=== PATIENT | male | born 1935 | race Caucasian/White ===

== ENCOUNTER 2023-01-22 09:38 | Outpatient (OUT) | payer MEDICARE, OTHER, SELFPAY ==
[2023-01-22 10:22] LABS: Basophils Percent Auto 0.4 % (0.2-2.0); Eosinophils Absolute Auto 0.1 10^3/uL (0.0-0.7); Eosinophils Percent Auto 0.7 % (0.9-7.0); Hematocrit 34.8 % (42.0-54.0); Hemoglobin 12.1 g/dL (14.0-18.0); Immature Granulocytes Abs Auto 0.03 10^3/uL (0.00-0.03); Immature Granulocytes Pct Auto 0.4 % (0.0-0.5); Lymphocytes Absolute Auto 1.2 10^3/uL (1.2-3.8); Lymphocytes Percent Auto 14.3 % (20.5-60.0); Mean Corpuscular HGB Conc 34.8 g/dL (29.9-35.2); Mean Corpuscular Hemoglobin 26.6 pg (25.9-34.0); Mean Corpuscular Volume 76.5 fL (80.0-94.0); Mean Platelet Volume 11.4 fL (9.5-13.5); Monocytes Absolute Auto 1.4 10^3/uL (0.3-0.8); Monocytes Percent Auto 16.1 % (1.7-12.0); Neutrophils Absolute Auto 5.7 10^3/uL (1.4-6.5); Neutrophils Percent Auto 68.1 % (43.0-75.0); Platelet Count 407 10^3/uL (150-450); Red Blood Count 4.55 10^6/uL (4.70-6.10); Red Cell Distribution Width 15.8 % (11.0-15.0); White Blood Count 8.4 10^3/uL (4.0-11.0)
[2023-01-22 10:58] LABS: Estimated Average Glucose 246 mg/dL; Glycohemoglobin A1C 10.2 % (4.5-6.2)
[2023-01-22 11:27] LABS: Percent Iron Saturation 7.3 %
[2023-01-22 11:58] LABS: Alanine Aminotransferase 21 U/L (16-63); Albumin Globulin Ratio 0.7; Albumin Level 2.9 g/dL (3.4-5.0); Alkaline Phosphatase 128 U/L (46-116); Anion Gap 10.4; Aspartate Amino Transferase 20 U/L (15-37); BUN Creatinine Ratio 18.8; Bilirubin Total 0.4 mg/dL (0.2-1.0); Calcium 8.5 mg/dL (8.5-10.1); Chloride 100 mmol/L (98-107); Chol HDL Ratio 3.5; Cholesterol 120 mg/dL (<=200); Estimated GFR (African America >60 (>=60); Estimated GFR (Non-African Ame >60 (>=60); Globulin 4.2 g/dL; Glucose 343 mg/dL (74-106); HDL Cholesterol 34 mg/dL (40-60); Magnesium 1.7 mg/dL (1.8-2.4); Phosphorus 2.6 mg/dL (2.6-4.7); Potassium 4.4 mmol/L (3.5-5.1); Sodium 134 mmol/L (136-145); Thyroid Stimulating Hormone 1.277 uIU/mL (0.358-3.740); Total Protein 7.1 g/dL (6.4-8.2); Triglycerides 59 mg/dL (<=150); VLDL CHOLESTEROL 11.8 mg/dL
[2023-01-22 11:59] LABS: Creatinine Urine Random 66.56 mg/dL (20.00-300.00); Microalbum Creatinine Ratio Ur 126.2 mg/g (0.0-29.9); Microalbumin Urine Random 8.4 mg/dL (<=30.0)
[2023-01-23 05:07] LABS: Transferrin 207 mg/dL (149-313)
[2023-01-23 14:10] LABS: PTH, Intact 47 pg/mL (15-65)
== END 2023-01-22 09:39 | disposition home or self-care (01) ==
PROVIDERS: PCP Internal Medicine; Visit Provider Nurse Practitioner Adult Health
DX: E10.9 Type 1 diabetes mellitus without complications (principal); D64.9 Anemia, unspecified; E83.51 Hypocalcemia; Z51.81 Encounter for therapeutic drug level monitoring; E83.42 Hypomagnesemia; E78.2 Mixed hyperlipidemia
CPT/HCPCS: 36415; 80053; 80061; 82043; 82570; 83036; 83540; 83550; 83735; 83970; 84100; 84443; 84466; 85025

== ENCOUNTER 2023-04-12 08:56 | Outpatient (OUT) | payer MEDICARE, OTHER, SELFPAY ==
--- NOTE | 2023-04-12 09:02 | US_ITS ---
The [address] [address] Patient Name: ASHWINI VICKERS MRN: [id number] date: 1935 Sex: M Assigned Patient Location: US Current Patient Location: US Accession/Order Number: [id number] Exam Date: 04/12/2023 09:03 Report Date: 04/12/2023 10:08 At the request of: NON-STAFF PHYSICIAN Procedure: US renal bladder EXAM: US renal bladder HISTORY: Urinary Tract Infection N39.0 COMPARISON: None. TECHNIQUE: Ultrasound of the kidneys and urinary bladder FINDINGS: The right kidney measures 11.0 x 6.6 x 7.3 cm contains multiple cysts, largest measuring up to 4.3 cm. The left kidney measures 11.4 x 5.0 x 7.0 cm and contains a cyst measuring up to 2.3 cm. There is moderate hydronephrosis. No renal calculus is identified, bilaterally. Urinary bladder wall thickness taken containing multiple diverticula, largest measuring up to 1.3 cm. The prevoid volume was 469 cc. Postvoid volume was 226 cc. US/US renal bladder IMPRESSION: Moderate left hydronephrosis. Bilateral renal cysts. No nephrolithiasis, bilaterally. 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 Urinary retention. Electronically authenticated by: SERGEI VILLASENOR Date: 04/12/2023 10:08
== END 2023-04-12 08:57 | disposition home or self-care (01) ==
LOC: US 08:56
PROVIDERS: PCP Internal Medicine
DX: N39.0 Urinary tract infection, site not specified (principal); N13.30 Unspecified hydronephrosis; N28.1 Cyst of kidney, acquired; R33.9 Retention of urine, unspecified
CPT/HCPCS: 76770

== ENCOUNTER 2023-05-14 12:24 | Outpatient (RCR) | payer MEDICARE, OTHER, SELFPAY | END 2023-07-11 08:19 | disposition home or self-care (01) | LOC: PT 12:24 | PROVIDERS: PCP Internal Medicine | DX: S72.141D Displaced intertrochanteric fracture of right femur, subsequent encounter for closed fracture with routine healing (principal) | CPT/HCPCS: 97110; 97112; 97161; 97530 ==

== ENCOUNTER 2023-05-17 09:13 | Outpatient (RCR) | payer MEDICARE, OTHER, SELFPAY | END 2023-07-11 08:19 | disposition home or self-care (01) | LOC: OT 09:13 | PROVIDERS: PCP Internal Medicine | DX: S72.141D Displaced intertrochanteric fracture of right femur, subsequent encounter for closed fracture with routine healing (principal) | CPT/HCPCS: 97165 ==

== ENCOUNTER 2023-08-21 10:55 | Observation (INO) | payer MEDICARE, OTHER, SELFPAY ==
[2023-08-21] VITALS (22 sets, daily range): BP systolic 138–174; BP diastolic 70–108; PULSE 48–84; RESP 10–40; TEMP 36.4–36.8; O2SAT 83–100; BMI 15.5; BMI 19.0; BMI 19.6
--- NOTE | 2023-08-21 10:56 | ECG_ITS ---
The 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
--- NOTE | 2023-08-21 10:56 | CT_ITS ---
The [address] [address] Patient Name: ASHWINI VICKERS MRN: [id number] date: 1935 Sex: M Assigned Patient Location: ER Current Patient Location: ER Accession/Order Number: [id number] Exam Date: 08/21/2023 11:04 Report Date: 08/21/2023 11:31 At the request of: YENY VIDAL Procedure: CT stroke head/brain wo con EXAM: CT stroke head/brain wo con HISTORY: AMS. COMPARISON: None. TECHNIQUE: Unenhanced transaxial tomographic sections obtained from the vertex through the posterior fossa. Dose reduction techniques were achieved by using automated exposure control and/or adjustment of mA and/or kV according to patient size and/or use of iterative reconstruction technique. FINDINGS: Moderate bilateral chronic microvascular ischemic change. No midline shift, mass effect, or intracranial hemorrhage are identified. Mild diffuse cerebral atrophy. The mastoid air cells and the visualized paranasal sinuses are clear. CT/CT stroke head/brain wo con IMPRESSION: 1. No acute intracranial process is identified. 2. Moderate bilateral chronic microvascular ischemic change. Diffuse cerebral atrophy. Electronically authenticated by: DENIZ GARCIA Date: 08/21/2023 11:31
--- OUTSIDE RECORDS SUMMARY | 2023-08-21 11:06 | XMS_ITS | CCD ---
Author Name Unknown Address [address] [place] [address] Organization [facility] Care Team Providers Care Elevator Service Technician Name Role Phone MARINO CASTILLO Unavailable Unavailable MARIE CASTRO Unavailable Unavailab MARINO Merlos Unavailable Unavailable MARINO CASTILLO Unavailable Unavailable MARINO CASTILLO Unavailable Unavailable MARINO CASTILLO Unavailable Unavailable MARINO CASTILLO Unavailable Unavailable MARIE JULIAN (FEL) Unavailable Unavailable MARIE CASTRO Unavailable Unavailab Marie Santoyo Primary Care Provider PAUL CONN Admitting Unavailable PAUL CONN Attending Unavailable DUNCAN FRANCIS Consulting Unavailable MARIE CASTOR Primary Care Unavailable JOSE A, DR FRANCO Primary Care Unavailable KESHA DOBSON Admitting Unavailable KESHA DOBSON Attending Unavailable KESHA DOBSON Consulting Unavailable ROLA HOLCOMB Consulting Unavailable MATTHEW, DR SALAZAR Admitting Unavailable MATTHEW, DR SALAZAR Attending Unavailable [facility], DR CHANEY Primary Care Unavailable MATTHEW, DR SALAZAR Consulting Unavailable MATTHEW, DR SALAZAR Admitting Unavailable MATTHEW, DR SALAZAR Attending Unavailable DR SALVADOR NARANJO Primary Care Unavailable MATTHEW, DR SALAZAR Consulting Unavailable DO Marie Castro Primary Care Provider [phone] JO Rivas Emergency Provider DO Sushant Cordon Admit Provider DO Sushant Cordon Attending Provider [phone] MD Ashwini Conrad Other Provider [phone] MD Chuck Velasco Other Provider MD Anat Perez Other Provider MD Humberto Diaz Attending Provider MD Tru Briceno Other Provider MD Fredi Medrano Admit Provider MD Fredi Medrano Attending Provider KARIN Rios Other Provider Unavailable KARIN Velazquez Other Provider Unavailable KARIN Angulo Other Provider Unavailable KARIN Hernandez Other Provider Unavailable KARIN Bentley Other Provider Unavailable KARIN Henry Other Provider Unavailable MD Chris Holm Other Provider AMADA Zavala Other Provider DO Samantha Wilson Other Provider [phone] MD Eric Major Other Provider DO Sushant Cordon Other Provider MD Audi Gaming Other Provider [phone] MD Ceciyl Keen Other Provider AMADA Wright Other Provider MD Daniel Reyes Other Provider MD Roberto Sevilla Other Provider MD Humberto Diaz Other Provider MD Marzena Otto Other Provider DO Gray Gilliam Other Provider MD Mc Cornejo Other Provider MD Raymundo Angeles Other Provider MARYANN Mccauley Other Provider [phone] MD Indra Guillory Other Provider MD David Fonseca Other Provider MD Hai Aguilera Other Provider MD Esau Corrales Other Provider DO Leda Julian Other Provider DO Guevara Mills Other Provider DO Jose Roberto Felder Other Provider [phone] AMADA Marte Other Provider DO Warren Gross Other Provider MD Nayeli Jimenez Other Provider AMADA Wolff Other Provider AMADA Pimentel Other Provider MD Vidya Robert Other Provider MD Howard Burrell Other Provider DO Immanuel John Other Provider [phone] AMADA Murdock Other Provider [phone] DO Vidal Yadontae Other Provider KARIN Morillo Other Provider Unavailable Ashwini Conrad Unavailable Marie Castro DO Primary Care Provider MARIE CASTRO Referring Unavailable MARIE CASTRO Attending Unavailable MARIE CASTRO Referring Unavailable DO Marie Castro Primary Care Provider JO Rivas Emergency Provider DO Sushant Cordon Admit Provider [phone] MD Ashwini Conrad Other Provider MD Chuck Velasco Other Provider MD Anat Perez Other Provider MD Humberto Diaz Attending Provider MD Tru Briceno Other Provider MD Fredi Medrano Admit Provider MD Fredi Medrano Attending Provider [phone] KARIN Rios Other Provider Unavailable KARIN Velazquez Other Provider Unavailable KARIN Angulo Other Provider Unavailable KARIN Hernandez Other Provider Unavailable KARIN Bentley Other Provider Unavailable KARIN Henry Other Provider Unavailable MD Chris Holm Other Provider AMADA Zavalaa M Other Provider DO Samantha Wilson Other Provider MD Eric Major Other Provider DO Sushant Cordon Other Provider MD Audi Gaming Other Provider [phone] MD Cecily Keen Other Provider AMADA Wright Other Provider MD Daniel Reyes Other Provider MD Roberto Sevilla Other Provider MD Humberto Diaz Other Provider MD Marzena Otto Other Provider DO Gray Gilliam Other Provider [phone] MD Mc Cornejo Other Provider MD Raymundo Angeles Other Provider MARYANN Mccauley Other Provider MD Indra Guillory Other Provider MD David Fonseca Other Provider MD Hai Aguilera Other Provider MD Esau Corrales Other Provider DO Leda Julian Other Provider DO Guevara Mills Other Provider DO Jose Roberto Felder Other Provider [phone] AMADA Marte Other Provider DO Warren Gross Other Provider MD Nayeli Jimenez Other Provider [phone] AMADA Wolff Other Provider AMADA Pimentel Other Provider MD Vidya Robert Other Provider MD Howard Burrell Other Provider JohnDO Immanuel Other Provider AMADA Murdock Other Provider [phone] DO Mauricio Drake Other Provider KARIN Morillo Other Provider Unavailable MD Ashwini Conrad Attending Provider PROVIDER, UNKNOWN Attending Unavailable PROVIDER, UNKNOWN Admitting Unavailable Provider, None Primary Care Unavailable Arian Balderas Admitting Unavailable Arian Balderas Attending Unavailable Provider, None Primary Care Unavailable Arian Balderas Admitting Unavailable Arian Balderas Attending Unavailable Provider, None Primary Care Unavailable Arian Balderas Admitting Unavailable Arian Balderas Attending Unavailable MD Chuck Velasco Other Provider DO Federico Davis Attending Provider MD Herminio Lakhani Attending Provider [phone] Federico Davis Attending Unavailable Federico Davis Admitting Unavailable Xavichak, Marie Primary Care Unavailable Xavichak, Marie Primary Care Unavailable Herminio Lakhani Attending Unavailable Herminio Lakhani Admitting Unavailable Ashwini Conrad Attending Unavailable Ashwini Conrad Admitting Unavailable Vaschak, Marie Primary Care Unavailable Ashwini Conrad Attending Unavailable Ashwini Conrad Admitting Unavailable Vaschak, Marie Primary Care Unavailable Humberto Diaz Attending Unavailable Vaschak, Marie Primary Care Unavailable Sushant Cordon Admitting Unavailabl e Ashwini Conrad Consulting Unavailable Chuck Velasco Consulting Unavailable Anat Perez Consulting Unavailable Tru Briceno Consulting Unavailable Fredi Medrano Attending UnavailMarie Armando [facility] Care Unavailable Lois Rios Consulting Unavailable Fredi Medrano Admitting UnavailKavya Augustine Consulting Unavailable Gay Angulo Consulting Unavailable Buffy Hernandez Consulting Unavailable Fransisca Bentley Consulting Unavailable Diamond Henry Consulting Unavailable Chris Holm Consulting Unavailable Vivian Zavala Consulting Unavailable Samantha Wilson Consulting Unavailable Eric Major Consulting Unavailable Sushant Cordon Consulting UnavailAudi Hay Consulting Unavailable Cecily Keen Consulting Unavailable Nidia Wright Consulting UnavailDaniel Ochoa Consulting Unavailable Roberto Sevilla Consulting Unavailable Humberto Diaz Consulting Unavailable Marzena Otto Consulting Unavailable Gray Gilliam Consulting Unavailable Mc Cornejo Consulting Unavailable Raymundo Angeles Consulting Unavailable Marga Mccauley Consulting Unavailable Indra Guillory Consulting Unavailab David Wilson Consulting Unavailable Hai Aguilera Consulting Unavailable Esau Corrales Consulting Unavailable Leda Julian Unavailable Guevara Mills Consulting Unavailable Jose Roberto Felder Consulting Unavailable Anat Marte Consulting Unavailable Warren Gross Consulting Unavailable DaromaNayeli goff Consulting Unavailable Nicole Wolff Consulting Unavailable Melisa Pimentel Consulting Unavailable Alanikhil Alanaomie Consulting Unavailable Howard Burrell Consulting Unavailable Immanuel John Consulting Unavailable Rosario Murdock Consulting Unavailable Mauricio Drake Consulting Unavailable Erma Morillo Consulting Unavailable Anat Perez Unavailable ADRIÁN DAVIS Attending Unavailable MARIE CASTRO Primary Care Unavailab ADRIÁN Sarmiento Referring Unavailable SAMMY WOLFF Attending Unavailable ADRIÁN DAVIS Referring Unavailable MARIE CASTRO Primary Care Unavailab SAMMY Sosa Attending Unavailable SAMMY WOLFF Referring Unavailable MARIE CASTRO Primary Care Unavailab le Medications Current Medications Medication Drug Class(es) Dates Sig (Normalized) Sig (Original) acetaminophen 500 mg oral tablet (20 sources) Start: 05-03-2023 End: 05-07-2023 take 500 mg by mouth every six hours Acetaminophen Active 500 MG PO Every 6 hours May 06, 2023 11:00pm Start: 05-03-2023 End: 05-03-2023 take 2 tablets by mouth every four hours Acetaminophen (Tylenol) 325 mg Tablet Discontinued 650 MG PO Q4H 0 May 02, 2023 11:00pm May 03, 2023 4:10pm Start: 01-06-2022 acetaminophen (TYLENOL) tablet 1,000 mg amLODIPine 5 mg oral tablet (2 sources) Dihydropyridine Calcium Channel Sarah Start: 01-07-2022 take 1 tablet by mouth once daily amLODIPine (NORVASC) 5 MG tablet Take 1 tablet by mouth daily 30 tablet 3 01/07/2022 Active Start: 01-07-2022 take 1 tablet by sondra th once daily amLODIPine (NORVASC) 5 MG tablet Take 1 tablet by mouth daily 30 tablet 3 01/07/2022 Active Start: 01-04-2022 take 5 mg by mouth once daily 5 mg, Oral, DAILY, First dose on 01/04/22 at 1500, Until Discontinued amylase 416196 unt / lipase 41919 unt / protease 65031 unt delayed release oral capsule (14 sources) Start: 05-07-2023 take 16225-80301 capsules by mouth once Gttraq-Pqujchgm-Fnkcjeu (Creon) 24,000-76,000 -120,000 unit Capsule,Delayed Release(Dr/Ec) Active 2 CAP PO 3x/Day with meals 120 May 06, 2023 11:00pm Start: 04-28-2023 End: 05-07-2023 take 33117-21485 capsules by mouth three times daily Iczexp-Ckotvdwn-Nebjayu (Creon) 24,000-76,000 -120,000 unit capsule,delayed release(DR/EC) Discontinued 2 CAP PO Three times daily April 27, 2023 11:00pm May 07, 2023 1:27pm take 1 capsule by mo [facility] three times daily at mealtime dlyncx-kjcvvvre-dnmkcfv (CREON) 31133-02145 units delayed release capsule Take 1 capsule by mouth 3 times daily (with meals) 0 Active lipase-protease- amylase (CREON) 16475-68023 units delayed release capsule Take 12,000 Units by mouth take with snacks 0 Active aspirin 81 mg delayed release oral tablet (17 sources) Platelet Aggregation Inhibitor, Nonsteroidal Anti-inflammatory Drug Start: 05-03-2023 End: 05-07-2023 take 81 mg by mouth once daily Aspirin Active 81 MG PO Daily May 06, 2023 11:00pm atorvastatin 80 mg oral tablet (17 sources) HMG-CoA Reductase Inhibitor Start: 05-03-2023 End: 05-07-2023 take 80 mg by mouth once daily in the evening Atorvastatin Active 80 MG PO Every evening May 06, 2023 11:00pm calcium carbonate 1250 mg oral tablet (1 source) take 1 tablet by mouth three times daily at mealtime calcium carbonate (Oscal) 500 mg calcium (1,250 mg) tablet Take 1 tablet (1,250 mg) by mouth 3 times a day with meals. 0 Active Calcium Carbonate-Vitamin D3 (Oyster Shell Calcium-Vit D3) 500 mg-5 mcg (200 unit) Tablet (11 sources) Start: 05-07-2023 take 1 tablet by mouth once at mealtime Calcium Carbonate-Vitamin D3 (Oyster Shell Calcium-Vit D3) 500 mg-5 mcg (200 unit) Tablet Active 1 TAB PO 3x/Day with meals May 06, 2023 11:00pm Start: 05-07-2023 take 1 tablet by sondra th once at mealtime Calcium Carbonate-Vitamin D3 (Oyster Shell Calcium-Vit D3) 500 mg-5 mcg (200 unit) Tablet Active 1 TAB PO 3x/Day with meals May 07, 2023 12:00am Start: 05-03-2023 End: 05-07-2023 take 1 tablet by mouth once at mealtime Calcium Carbonate-Vitamin D3 (Oyster Shell Calcium-Vit D3) 500 mg-5 mcg (200 unit) Tablet Discontinued 1 TAB PO 3x/Day with meals May 02, 2023 11:00pm May 07, 2023 1:27pm Start: 05-03-2023 End: 05-07-2023 take 1 tablet by mouth once at mealtime Calcium Carbonate-Vitamin D3 (Oyster Shell Calcium-Vit D3) 500 mg-5 mcg (200 unit) Tablet Discontinued 1 TAB PO 3x/Day with meals May 03, 2023 12:00am May 07, 2023 2:27pm Start: 05-03-2023 take 1 tablet by sondra th once at mealtime Calcium Carbonate-Vitamin D3 (Oyster Shell Calcium-Vit D3) 500 mg-5 mcg (200 unit) Tablet Active 1 TAB PO 3x/Day with meals May 03, 2023 12:00am Centrum Silver - (4 sources) Centrum Silver - as directed Orally Active cetirizine hydrochloride 10 mg oral tablet (1 source) Histamine-1 Receptor Antagonist take 1 tablet by mouth once daily cetirizine (ZyrTEC) 10 mg tablet Take 1 tablet (10 mg) by mouth once daily. 0 Active cholecalciferol 0.025 mg oral capsule (1 source) Vitamin D take 1 capsule by mouth once daily cholecalciferol (Vitamin D3) 25 MCG (1000 UT) capsule Take 1 capsule (25 mcg) by mouth once daily. 0 Active clopidogrel 75 mg oral tablet (1 source) P2Y12 Platelet Inhibitor Start: 08-16-19 End: 08-15-19 take 1 tablet by mouth once daily clopidogrel (Plavix) 75 mg tablet Indications: ASHD (arteriosclerotic heart disease) , Cardiomyopathy, ischemic Take 1 tablet (75 mg) by mouth once daily. 30 tablet 08/16/2023 08/15/2024 Active Creon 6000 UNIT (4 sources) Creon 6000 UNIT as directed Orally Active cyclobenzaprine hydrochloride 5 mg oral tablet (6 sources) Muscle Relaxant Start: 05-07-20 take 5 mg by mouth every eight hours Cyclobenzaprine Active 5 MG PO Q8H May 06, 2023 11:00pm take 1 tablet by sondra th three times daily as needed for muscle spasms cyclobenzaprine (Flexeril) 5 mg tablet T tom 1 tablet (5 mg) by mouth 3 times a day as needed for muscle spasms. 0 Active ferrous sulfate 324 mg delayed release oral tablet (6 sources) Start: 05-07-2023 take 324 mg by mouth once daily Ferrous Sulfate Active 324 MG PO Daily May 06, 2023 11:00pm take 1 tablet by sondra th once daily at mealtime ferrous sulfate, 325 mg ferrous sulfate, (iron) tablet Take 1 tablet (325 mg) by mouth once daily with a meal. 0 Active furosemide 20 mg oral tablet (1 source) Loop Diuretic Start: 08-16-2023 End: 09-15-2023 take 1 tablet by mouth once daily furosemide (Lasix) 20 mg tablet Indications: Cardiomyopathy, ischemic Take 1 tablet (20 mg) by mouth once daily. 30 tablet 0 08/16/2023 09/15/2023 Active glucagon (rdna) 1 mg injection (1 source) Antihypoglycemic Agent Start: 01-03-2022 glucagon (rDNA) injection 1 mg 150 ml glucose 50 mg/ml injection (3 sources) Start: 01-03-2022 dextrose bolus 10% 125 mL Start: 01-02-2022 End: 01-04-2022 dextrose 5 % solution 1 ml hydrALAZINE hydrochloride 20 mg/ml injection (1 source) Arteriolar Vasodilator Start: 01-04-2022 hydrALAZINE (APRESOLINE) injection 10 mg Insulin Aspart U-100 (Novolog Flexpen U-100 Insulin) 100 unit/mL (3 mL) Insulin Pen (20 sources) Start: 05-07-2023 inject 1 dose by subcutaneous injection at bedtime Insulin Aspart U-100 (Novolog Flexpen U-100 Insulin) 100 unit/mL (3 mL) Insulin Pen Active 1 sliding scale dose SUBCUT Before meals and at bedtime May 06, 2023 11:00pm Start: 05-07-2023 Insulin Aspart U-100 (Novolog Flexpen U-100 Insulin) 100 unit/mL (3 mL) Insulin Pen Active 0 UNITS SUBCUT 3x/Day with meals May 06, 2023 11:00pm Start: 05-07-2023 inject 1 dose by sub cutaneous injection at bedtime Insulin Aspart U-100 (Novolog Flexpen U-100 Insulin) 100 unit/mL (3 mL) Insulin Pen Active 1 sliding scale dose SUBCUT Before meals and at bedtime May 07, 2023 12:00am Start: 05-07-2023 Insulin Aspart U-100 (Novolog Flexpen U-100 Insulin) 100 unit/mL (3 mL) Insulin Pen Active 0 UNITS SUBCUT 3x/Day with meals May 07, 2023 12:00am Start: 05-03-2023 End: 05-03-2023 Insulin Aspart U-100 (Novolo g Flexpen U-100 Insulin) 100 unit/mL (3 mL) Insulin Pen Discontinued 0 UNITS SUBCUT 3X/Day with meals and bedtime May 02, 2023 11:00pm May 03, 2023 4:10pm Start: 05-03-2023 End: 05-03-2023 Insulin Aspart U-100 (Novolo g Flexpen U-100 Insulin) 100 unit/mL (3 mL) Insulin Pen Discontinued 0 UNITS SUBCUT 3x/Day with meals 0 May 02, 2023 11:00pm May 03, 2023 4:09pm Start: 05-03-2023 End: 05-03-2023 Insulin Aspart U-100 (Novolo g Flexpen U-100 Insulin) 100 unit/mL (3 mL) Insulin Pen Discontinued 0 UNITS SUBCUT 3X/Day with meals and bedtime 0 May 03, 2023 12:00am May 03, 2023 5:10pm Start: 05-03-2023 End: 05-03-2023 Insulin Aspart U-100 (Novolo g Flexpen U-100 Insulin) 100 unit/mL (3 mL) Insulin Pen Discontinued 0 UNITS SUBCUT 3x/Day with meals 0 May 03, 2023 12:00am May 03, 2023 5:09pm Start: 05-03-2023 Insulin Aspart U-100 (Novolog Flexpen U-100 Insulin) 100 unit/mL (3 mL) Insulin Pen Active 0 UNITS SUBCUT 3X/Day with meals and bedtime 0 May 03, 2023 12:00am Start: 05-03-2023 Insulin Aspart U-100 (Novolog Flexpen U-100 Insulin) 100 unit/mL (3 mL) Insulin Pen Active 0 UNITS SUBCUT 3x/Day with meals 0 May 03, 2023 12:00am insulin aspart, human 100 unt/ml injectable solution (2 sources) Insulin Analog inject 100 [IU] by subcutaneous injection three times daily before mealtime insulin aspart (NovoLOG U-100 Insulin aspart) 100 unit/mL injection Inject 100 Units under the skin 3 times a day before meals. Take as directed per insulin instructions. 0 Active 3 ml insulin glargine 100 unt/ml pen injector (20 sources) Insulin Analog Start: 3 End: 3 inject 7 [IU] by subcutaneous injection twice daily Insulin Glargine (Lantus Solostar U-100 Insulin) 100 unit/mL (3 mL) Insulin Pen Active 7 UNITS SUBCUT Twice daily 4.2 May 06, 2023 11:00pm Start: 04-28-2023 End: 05-03-2023 Insulin Glargine (Lantus Renetta ostar U-100 Insulin) 100 unit/mL (3 mL) insulin pen Discontinued 18 UNIT SUBCUT Bedtime April 27, 2023 11:00pm May 03, 2023 4:10pm inject 24 [IU] by melchor bcutaneous injection once daily at bedtime insulin glargine (Lantus U-100 Insulin) 100 unit/mL injection Inject 24 Units under the skin once daily at bedtime. Take as directed per insulin instructions. 0 Active Insulin Pump - Basal Dose (Patient Supplied) (1 source) Start: 01-03-2022 Insulin Pump - Basal Dose (Patient Supplied) Insulin Pump - Bolus Dose (Patient Supplied) (1 source) Start: 01-03-2022 Insulin Pump - Bolus Dose (Patient Supplied) lipase/protease/amylase (CREON ORAL) (2 sources) take 47829 mg by mouth three times daily lipase/protease/amylas e (CREON ORAL) Take 24,000 mg by mouth 3 times a day. 0 Active loratadine 10 mg oral tablet (5 sources) take 1 tablet by mouth every twenty-four hours Claritin 10 MG 1 tablet Orally Once a day Active lutein 6 mg oral capsule (5 sources) take 1 capsule by mouth every twenty-four hours Lutein 6 MG 1 capsule with a meal Orally Once a day Active take 1 tablet by mouth once parul y lutein 10 mg tablet Take 1 tablet by mouth once daily. 0 Active take 1 capsule by mouth once luc ly Lutein 6 MG 1 capsule with a meal Orally Once a day Active melatonin 1 mg oral tablet (1 source) Start: 01-06-2022 melatonin tablet 3 mg Multiple Vitamins-Minerals (LUTEIN-ZEAXANTHIN PO) (1 source) take 1 tablet by mouth once daily Multiple Vitamins-Minerals (LUTEIN-ZEAXANTHIN PO) Take 1 tablet by mouth daily 0 Active multivit-min/ferrous fumarate (MULTI VITAMIN ORAL) (1 source) take 1 tablet by mouth once daily multivit-min/ferrou s fumarate (MULTI VITAMIN ORAL) Take 1 tablet by mouth once daily. 0 Active nitroglycerin 0.4 mg sublingual tablet (18 sources) Nitrate Vasodilator Start: 06-23-2023 End: 06-22-2024 Nitroglycerin Active 0.4 MG SUBLINGUAL Q5M July 16, 2023 12:00am until response; do not exceed 3 doses per event Start: 05-03-2023 End: 05-07-2023 Nitroglycerin Active 0.4 MG SUBLINGUAL Q5M July 16, 2023 12:00am until response; do not exceed 3 doses per event Nitroglycerin 0. 4 MG as directed Sublingual Active ondansetron (ZOFRAN-ODT) disintegrating tablet 4 mg (1 source) Start: 01-02-2022 ondansetron (ZOFRAN-ODT) disintegrating tablet 4 mg pantoprazole 40 mg delayed release oral tablet (1 source) Proton Pump Inhibitor Start: 01-07-2022 take 1 tablet by mouth once daily before breakfast pantoprazole (PROTONIX) 40 MG tablet Take 1 tablet by mouth every morning (before breakfast) 90 tablet 1 01/07/2022 Active Start: 01-07-2022 take 1 tablet by sondra th once daily before breakfast pantoprazole (PROTONIX) 40 MG tablet Take 1 tablet by mouth every morning (before breakfast) 90 tablet 01/07/2022 Active pantoprazole (PROTONIX) 40 mg in sodium chloride (PF) 10 mL injection (1 source) Start: 01-02-2022 40 mg, IntraVE Nous, EVERY 12 HOURS, First dose on Wed01/02/22 at 2300 Reconstitute with 10 mL 0.9 % sodium chloride and administer over at least 2 minutes. PARoxetine hydrochloride 30 mg oral tablet (20 sources) Serotonin Reuptake Inhibitor Start: 04-28-2023 End: 05-07-2023 take 30 mg by mouth once daily Paroxetine Hcl Active 30 MG PO Daily May 06, 2023 11:00pm Start: 01-05-2022 take 30 mg by mouth once daily in the morning 30 mg, Oral, EVERY MORNING, First dose on Wed01/05/22 at 0900, Until Discontinued Probiotic Product (PROBIOTIC-10 PO) (1 source) take 1 capsule by mouth once daily Probiotic Product (PROBIOTIC-10 PO) Take 1 capsule by mouth daily 0 Active 1000 ml sodium chloride 9 mg/ml injection (4 sources) Start: 01-06-2022 0.9 % sodium chloride infusion Start: 01-02-2022 IntraVENous, a t 5-250 mL/hr, PRN, if patient receiving piggyback infusions and maintenance fluids are not ordered OR KVO fluids to protect IV site / prevent frequent line interruptions/ long duration, Starting on Wed01/02/22 at 2231 For piggyback infusion, administer at same rate as piggyback for a total of 25 mL. Enter 25 mL into dose field and piggyback rate into rate field of order. If piggyback is infusing at a rate less than 100 mL/hr, enter 25 mL into dose field and 100 mL/hr into rate field of order. For KVO fluids, enter rate of 20 mL/hr or less into rate field of order. Start: 01-02-2022 take 1 dose intraven ously twice daily 5-40 mL, IntraVENous, EVERY 12 HOURS SCHEDULED (2 times per day), First dose on Wed01/02/22 at 2300, Until Discontinued For Line Patency: Peripheral IV = 5 mL; Midline or Central Line = 10 mL/lumen. If following IV push medication, administer flush at same rate as the IV push. Flush volume is determined by type of infusion therapy being given. For non-viscous solutions use: Peripheral IV = 5 mL Midline or Central Line = 10 mL/lumen For viscous solutions (i.e. blood components, parenteral nutrition, contrast media, or after obtaining blood sample) use: Peripheral IV = 10 mL Midline or Central Line = 20 mL/lumen Start: 01-02-2022 take 5-40 mL intrave nously once as needed 5-40 mL, IntraVENous, PRN, Starting on Wed01/02/22 at 2231, Until Discontinued, Line Care, After every IV line use For Line Patency: Peripheral IV = 5 mL; Midline or Central Line = 10 mL/lumen. If following IV push medication, administer flush at same rate as the IV push. Flush volume is determined by type of infusion therapy being given. For non-viscous solutions use: Peripheral IV = 5 mL Midline or Central Line = 10 mL/lumen For viscous solutions (i.e. blood components, parenteral nutrition, contrast media, or after obtaining blood sample) use: Peripheral IV = 10 mL Midline or Central Line = 20 mL/lumen sucralfate 100 mg/ml oral suspension (2 sources) Aluminum Complex Start: 01-07-2022 take 10 mL by mouth four times daily sucralfate (CARAFATE) 1 GM/10ML suspension Take 10 mLs by mouth 4 times daily 1200 mL 3 01/07/2022 Active Start: 01-07-2022 take 10 mL by mouth four times daily sucralfate (CARAFATE) 1 GM/10ML suspension Take 10 mLs by mouth 4 times daily 1200 mL 3 01/07/2022 Active Start: 01-02-2022 sucralfate (CA RAFATE) 1 GM/10ML suspension 1 g tamsulosin hydrochloride 0.4 mg oral capsule (18 sources) alpha-Adrenergic Sarah Start: 04-28-2023 End: 08-16-2023 take 0.4 mg by mouth once daily Tamsulosin Active 0.4 MG PO Daily May 06, 2023 11:00pm triamcinolone acetonide 1 mg/ml topical cream (20 sources) Corticosteroid Start: 05-03-2023 End: 05-07-2023 Triamcinolone Acetonide Active 1 APPLIC TOPICAL Four times daily May 06, 2023 11:00pm Start: 04-16-2020 Kenalog -40 mg Apr, 40 mg Triamcinolone Ac etonide 0.1 % 1 application Externally Two times a Week Active Triamcinolone Ac etonide 0.1 % 1 application Externally Two times a Week Active valsartan 160 mg oral tablet (17 sources) Angiotensin 2 Receptor Sarah Start: 05-07-2023 End: 08-16-2023 take 160 mg by mouth once daily Valsartan Active 160 MG PO Daily May 06, 2023 11:00pm Start: 05-03-2023 End: 05-07-2023 take 80 mg by mouth once daily Valsartan Discontinued 80 MG PO Daily May 02, 2023 11:00pm May 07, 2023 1:27pm Vitamin D3 [id number] UNIT/GM (4 sources) Vitamin D3 15078 00 UNIT/GM as directed Active Completed/Discontinued Medications Medication Drug Class(es) Dates Sig (Normalized) Sig (Original) acetaminophen 325 mg / HYDROcodone bitartrate 5 mg oral tablet (20 sources) Opioid Agonist Start: 05-03-2023 End: 05-07-2023 take 1 tablet by mouth every four hours Hydrocodone-Acetami nophen Discontinued 1 TAB PO Q4H May 03, 2023 4:09pm May 07, 2023 1:27pm take 1-2 tablets by mouth every four to six hours as needed HYDROcodone-Acetaminophen 5-325 MG 1-2 t ablet as needed Orally every 4-6 hrs for 7 days ROSEANN # [id number] Active take 1 tablet by sondra th every six hours HYDROcodone-Acetaminophen 5-325 MG 1 tab let as needed Orally every 6 hrs Active aluminum hydroxide 40 mg/ml / magnesium hydroxide 40 mg/ml / simethicone 4 mg/ml oral suspension (6 sources) Start: 05-03-2023 End: 05-03-2023 take 1 mL by mouth every four hours Alum-Mag Hydroxide-Simeth (Mag-Al Plus) 200-200-20 mg/5 mL Suspension Discontinued 30 ML PO Q4H 0 May 02, 2023 11:00pm May 03, 2023 4:10pm ascorbic acid 500 mg oral tablet (14 sources) Vitamin C Start: 05-03-2023 End: 08-16-2023 ascorbic acid (Vitamin C) 500 mg tablet 1 tablet (500 mg). 0 05/07/2023 08/16/2023 Discontinued (Therapy completed) End: 08-16-2023 take 1 tablet by mouth once daily ascorbic acid (Vitamin C) 100 mg tablet Take 1 tablet (100 mg) by mouth once daily. 0 08/16/2023 Discontinued (Therapy completed) bisacodyl 10 mg rectal suppository (13 sources) Stimulant Laxative Start: 05-03-2023 End: 05-03-2023 Bisacodyl Discontinued 10 MG [place] Daily 0 May 02, 2023 11:00pm May 03, 2023 4:10pm Start: 05-03-2023 End: 05-03-2023 take 10 mg by mouth once daily Bisacodyl Discontinued 10 MG PO Daily 0 May 02, 2023 11:00pm May 03, 2023 4:10pm Start: 01-02-2022 take 10 mg rectal ro felicia once daily as needed 10 mg, Rectal, DAILY PRN, Starting on Wed01/02/22 at 2231, Until Discontinued, Constipation First line therapy for constipation calcium chloride 0.0014 meq/ml / potassium chloride 0.004 meq/ml / sodium chloride 0.103 meq/ml / sodium lactate 0.028 meq/ml injectable solution (1 source) Start: 01-02-2022 End: 01-05-2022 IntraVENous, at 125 mL/hr, CONTINUOUS, Starting on Wed01/02/22 at 2300 collagenase Clostridium histolyticum (4 sources) Start: 04-16-2020 Xiaflex Apr 0.01 mg 0.4 ml enoxaparin sodium 100 mg/ml prefilled syringe (7 sources) Low Molecular Weight Heparin Start: 05-03-2023 End: 05-07-2023 Enoxaparin (Lovenox) 40 mg/0.4 mL Syringe Discontinued 40 MG SUBCUT DAILY@1000 0 15 May 02, 2023 11:00pm May 07, 2023 1:27pm Start: 01-03-2022 enoxaparin (LO VENOX) injection 40 mg 100 ml fluconazole 2 mg/ml injection (1 source) Azole Antifungal Start: 01-02-2022 End: 01-02-2022 fluconazole (DIFLUCAN) 400 mg IVPB Insulin Aspart U-100 (Novolog Flexpen U-100 Insulin) 100 unit/mL (3 mL) insulin pen (19 sources) Start: 05-03-2023 End: 05-07-2023 Insulin Aspart U-100 (Novolog Flexpen U-100 Insulin) 100 unit/mL (3 mL) insulin pen Discontinued 0 units SUBCUT Before meals and at bedtime May 03, 2023 4:09pm May 07, 2023 1:27pm Start: 05-03-2023 End: 05-07-2023 Insulin Aspart U-100 (Novolo g Flexpen U-100 Insulin) 100 unit/mL (3 mL) insulin pen Discontinued 0 units SUBCUT Before meals and at bedtime May 03, 2023 5:09pm May 07, 2023 2:27pm Start: 04-28-2023 End: 05-03-2023 inject 8 [IU] by subcutaneous injection once daily before dinner Insulin Aspart U-100 (Novolog Flexpen U-100 Insulin) 100 unit/mL (3 mL) insulin pen Discontinued 8 UNIT SUBCUT once daily before dinner April 27, 2023 11:00pm May 03, 2023 4:10pm Start: 04-28-2023 End: 05-03-2023 inject 5 [IU] by subcutaneous injection after breakfast Insulin Aspart U-100 (Novolog Flexpen U-100 Insulin) 100 unit/mL (3 mL) insulin pen Discontinued 5 UNIT SUBCUT After breakfast and lunch April 27, 2023 11:00pm May 03, 2023 4:10pm Start: 04-28-2023 End: 05-03-2023 inject 8 [IU] by subcutaneous injection once daily before dinner Insulin Aspart U-100 (Novolog Flexpen U-100 Insulin) 100 unit/mL (3 mL) insulin pen Discontinued 8 UNIT SUBCUT once daily before dinner April 28, 2023 12:00am May 03, 2023 5:10pm Start: 04-28-2023 End: 05-03-2023 inject 5 [IU] by subcutaneous injection after breakfast Insulin Aspart U-100 (Novolog Flexpen U-100 Insulin) 100 unit/mL (3 mL) insulin pen Discontinued 5 UNIT SUBCUT After breakfast and lunch April 28, 2023 12:00am May 03, 2023 5:10pm Start: 04-28-2023 inject 8 [IU] by sub cutaneous injection once daily before dinner Insulin Aspart U-100 (Novolog Flexpen U-100 Insulin) 100 unit/mL (3 mL) insulin pen Active 8 UNIT SUBCUT once daily before dinner April 28, 2023 12:00am Start: 04-28-2023 inject 5 [IU] by sub cutaneous injection after breakfast Insulin Aspart U-100 (Novolog Flexpen U-100 Insulin) 100 unit/mL (3 mL) insulin pen Active 5 UNIT SUBCUT After breakfast and lunch April 28, 2023 12:00am insulin regular (HUMULIN R;NOVOLIN R) 100 Units in sodium chloride 0.9 % 100 mL infusion (1 source) Start: 01-02-2022 End: 01-03-2022 insulin regular (HUMULIN R;NOVOLIN R) 100 Units in sodium chloride 0.9 % 100 mL infusion iohexol (OMNIPAQUE 240) injection 100 mL (1 source) Start: 01-05-2022 End: 01-05-2022 iohexol (OMNIPAQUE 240) injection 100 mL lidocaine hydrochloride 10 mg/ml injectable solution (6 sources) Antiarrhythmic, Amide Local Anesthetic Start: 05-03-2023 End: 05-03-2023 Lidocaine Hcl (Xylocaine) 10 mg/mL (1 %) Solution Discontinued 0.1 ML INTRADERMA Pre-Op 0 May 02, 2023 11:00pm May 03, 2023 4:10pm Magnesium Hydroxide (6 sources) Start: 05-03-2023 End: 05-07-2023 take 1 mL by mouth twice daily Magnesium Hydroxide (Milk Of Magnesia) 400 mg/5 mL Suspension Discontinued 30 ML PO Twice daily 0 May 02, 2023 11:00pm May 07, 2023 1:27pm Start: 05-03-2023 End: 05-07-2023 take 1 mL by mouth twice daily Magnesium Hydroxide (Mi lk Of Magnesia) 400 mg/5 mL Suspension Discontinued 30 ML PO Twice daily 0 May 03, 2023 12:00am May 07, 2023 2:27pm Start: 05-03-2023 take 1 mL by mouth twice daily Magnesium Hydroxide (Milk Of Magnesia) 400 mg/5 mL Suspension Active 30 ML PO Twice daily 0 May 03, 2023 12:00am magnesium oxide 400 mg oral tablet (1 source) Start: 01-07-2022 End: 01-07-2022 magnesium oxide (MAG-OX) tablet 400 mg 50 ml magnesium sulfate 40 m g/ml injection (1 source) Start: 01-05-2022 End: 01-05-2022 magnesium sulfate 2000 mg in 50 mL IVPB premix methocarbamol (ROBAXIN) 750 mg in dextrose 5 % 100 mL IVPB (1 source) Start: 01-02-2022 End: 01-06-2022 750 mg, IntraVENous, at 200 mL/hr, Administer over 30 Minutes, EVERY 6 HOURS, First dose on Wed01/02/22 at 2300 piperacillin-tazobactam (ZOS YN) 3,375 mg in dextrose 5 % 50 mL IVPB (mini-bag) (2 sources) Start: 01-02-2022 End: 01-06-2022 piperacillin-tazobactam (ZOSYN) 3,375 mg in dextrose 5 % 50 mL IVPB (mini-bag) Start: 01-02-2022 End: 01-02-2022 piperacillin-tazobactam (ZOS YN) 3,375 mg in dextrose 5 % 50 mL IVPB (mini-bag) potassium bicarbonate 20 meq effervescent oral tablet (1 source) Start: 01-07-2022 End: 01-07-2022 potassium bicarb-citric acid (EFFER-K) effervescent tablet 40 mEq microencapsulated potassium chloride 20 meq extended release oral tablet (8 sources) Start: 05-03-2023 End: 05-03-2023 Potassium Chloride (Klor-Con M20) 20 mEq Tablet,Er Particles/Crystals Discontinued 40 MEQ PO STAT 0 May 02, 2023 11:00pm May 03, 2023 4:10pm Start: 01-06-2022 End: 01-06-2022 potassium chloride (KLOR-CON M) extended release tablet 40 mEq Start: 01-05-2022 End: 01-05-2022 potassium chloride 10 mEq/10 0 mL IVPB (Peripheral Line) potassium phosphate 155 mg / sodium phosphate, dibasic 852 mg / sodium phosphate, monobasic 130 mg oral tablet (1 source) Start: 01-07-2022 End: 01-07-2022 phosphorus (K PHOS NEUTRAL) tablet 1 tablet potassium phosphate 15 mmol in dextrose 5 % 250 mL IVPB (1 source) Start: 01-05-2022 End: 01-05-2022 potassium phosphate 15 mmol in dextrose 5 % 250 mL IVPB Sennosides (Senna Laxative) 8.6 mg Tablet (6 sources) Start: 05-03-2023 End: 05-03-2023 take 2 tablets by mouth at bedtime Sennosides (Senna Laxative) 8.6 mg Tablet Discontinued 2 TAB PO Bedtime 0 May 02, 2023 11:00pm May 03, 2023 4:10pm Start: 05-03-2023 End: 05-03-2023 take 2 tablets by mouth at bedtime Sennosides (Senna Laxative) 8.6 mg Tablet Discontinued 2 TAB PO Bedtime 0 May 03, 2023 12:00am May 03, 2023 5:10pm Start: 05-03-2023 take 2 tablets by [facility] at bedtime Sennosides (Senna Laxative) 8.6 mg Tablet Active 2 TAB PO Bedtime 0 May 03, 2023 12:00am ticagrelor 90 mg oral tablet (3 sources) Start: 07-16-2023 End: 08-16-2023 ticagrelor (Brilinta) 90 mg tablet 1 tablet (90 mg) 2 times a day. 0 07/16/2023 08/16/2023 Discontinued (Side effects) Problems Active Problems Problem Classification Problem Date Documented Da te Episodic/Chronic Acute myocardial infarction (7 sources) Myocardial infarction; Translations: [Non-ST elevation (NSTEMI) myocardial infarction] Onset: 3 05-25-2023 Chronic Anxiety disorders (9 sources) Mixed anxiety and depressive disorder; Translations: [Anxiety disorder, unspecified] Onset: 3 05-04-2023 Chronic Cancer of pancreas (1 source) Malignant neoplasm of body of pancreas; Translations: [Malignant neoplasm of body of pancreas] Onset: 8 Chronic Cardiac dysrhythmias (10 sources) Paroxysmal ventricular tachycardia; 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] 04-29-2023 Chronic Coronary atherosclerosis 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; Translations: [Atherosclerotic heart disease of [place] coronary artery without angina pectoris] Onset: 3 04-30-2023 Chronic Deficiency and other anemia (5 sources) Anemia; Translations: [Anemia, unspecified] 05-04-2023 Episodic Diabetes mellitus with complications (8 sources) Diabetes mellitus; Translations: [Uncontrolled diabetes mellitus] 05-04-2023 Chronic Diabetes mellitus without complication (20 sources) Secondary diabetes mellitus; Translations: [Diabetes mellitus due to underlying condition without complications] Onset: 2 Chronic Disorders of lipid metabolism (1 source) Mixed hyperlipidemia; Translations: [Mixed hyperlipidemia] Onset: 3 06-23-2023 Chronic Essential hypertension (14 sources) Hypertensive disorder; Translations: [Essential (primary) hypertension] Onset: 3 05-04-2023 Chronic Fracture of neck of femur (hip) (20 sources) Closed intertrochanteric fracture; Translations: [Displaced intertrochanteric fracture of right femur, initial encounter for closed fracture] Onset: 3 04-28-2023 Episodic Gastroduodenal ulcer (except hemorrhage) (2 sources) Perforation of stomach; Translations: [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] Onset: 2 Chronic Gastroduodenal ulcer (except hemorrhage) (1 source) Acute gastric ulcer with perforation; Translations: [Acute gastric ulcer with perforation] Episodic Genitourinary symptoms and ill-defined conditions (4 sources) Hematuria, unspecified; Translations: [HEMATURIA UNSPECIFIED] Onset: 2 Episodic Hyperplasia of prostate (9 sources) Benign prostatic hyperplasia; Translations: [Benign prostatic hyperplasia without lower urinary tract symptoms] Onset: 3 05-04-2023 Chronic Mood disorders (1 source) Mood disorders; Translations: [Depression, unspecified] Onset: 3 Neoplasms of unspecified nature or uncertain behavior (1 source) Neoplasm of unspecified behavior of digestive system; Translations: [Neoplasm of unspecified behavior of digestive system] Onset: 8 Episodic Nutritional deficiencies (9 sources) Deficiency of macronutrients; Translations: [Mild protein-calorie malnutrition] Onset: 3 05-04-2023 Chronic Osteoporosis (9 sources) Osteoporosis; Translations: [Age-related osteoporosis without current pathological fracture] Onset: 3 05-04-2023 Chronic Other and ill-defined heart disease (6 sources) Left ventricular systolic dysfunction; Translations: [Other ill-defined heart diseases] 04-29-2023 Chronic Other and ill-defined heart disease (8 sources) Other ill-defined heart diseases; Translations: [Heart disease, unspecified] Onset: 3 05-03-2023 Chronic Other connective tissue disease (4 sources) Dupuytren contracture of right palm; Translations: [Palmar fascial fibromatosis [Dupuytren]] Episodic Other gastrointestinal disorders (2 sources) Viscus structure finding; Translations: [Other specified symptoms and signs involving the digestive system and abdomen] Onset: 2 Episodic Other lower respiratory disease (2 sources) Orthopnea; Translations: [Orthopnea] Onset: 4 08-16-2023 Episodic Other lower respiratory disease (1 source) Orthopnea; Translations: [Orthopnea] Onset: 4 Episodic Other nervous system disorders (4 sources) Carpal tunnel syndrome; Translations: [Carpal tunnel syndrome, left upper limb] Chronic Other nervous system disorders (6 sources) Hip pain; Translations: [Other acute postprocedural pain] 05-03-2023 Episodic Other nutritional; endocrine; and metabolic disorders (1 source) Abnormal weight loss; Translations: [Abnormal weight loss] Onset: 8 Episodic Other screening for suspected conditions (not mental disorders or infectious disease) (20 sources) Raised cardiac enzyme or marker; Translations: [Other specified abnormal findings of blood chemistry] Onset: 3 04-28-2023 Episodic Pancreatic disorders (not diabetes) (1 source) Disease of pancreas, unspecified; Translations: [Disease of pancreas, unspecified] Onset: 8 Episodic Residual codes; unclassified (2 sources) Disorder of pancreas; 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] Onset: 2 Chronic Residual codes; unclassified (2 sources) Body mass index 20-24 - normal; Translations: [Body mass index (BMI) 20.0-20.9, adult] Onset: 3 08-16-2023 Episodic Residual codes; unclassified (2 sources) Body mass index (BMI) 20.0-20.9, adult; Translations: [Body mass index (BMI) 20.0-20.9, adult] Onset: 3 Episodic Unclassified (1 source) CONTACT W/AND (SUSP) EXPOS COVID-19; Translations: [CONTACT W/AND (SUSP) EXPOS COVID-19] Onset: 2 Unclassified (1 source) Displaced intertrochanteric fracture of right femur, initial encounter for closed fracture; Translations: [Displaced intertrochanteric fracture of right femur, initial encounter for closed fracture] Onset: 4 Unclassified (1 source) Displaced intertrochanteric fracture of right femur, subsequent encounter for closed fracture with routine healing; Translations: [Displaced intertrochanteric fracture of right femur, subsequent encounter for closed fracture with routine healing] Onset: 3 Unclassified (1 source) Other ventricular tachycardia; Translations: [Other ventricular tachycardia] Onset: 3 Past or Other Problems Problem Classification Problem Date Documented Date Episodic/Chronic Abdominal pain (3 sources) Upper abdominal pain, unspecified; Translations: [UPPER ABDOMINAL PAIN, UNSPECIFIED] Onset: 01-02-2022 Episodic Administrative/social admission (14 sources) Other reduced mobility; Translations: [Impaired mobility and activities of daily living] Onset: 04-28-2023 05-03-2023 Episodic Deficiency and other anemia (4 sources) Anemia, unspecified; Translations: [Anemia, unspecified] Onset: 05-03-2023 05-08-2023 Episodic Other nervous system disorders (8 sources) Other acute postprocedural pain; Translations: [Pain in joint, pelvic region and thigh] Onset: 04-28-2023 05-03-2023 Episodic Other non-traumatic joint disorders (1 source) Pain in unspecified hip; Translations: [Pain in unspecified hip] Onset: 04-28-2023 Episodic Residual codes; unclassified (1 source) Other specified health status; Translations: [Other specified health status] Onset: 04-28-2023 Episodic Unclassified (2 sources) Onset: 05-25-2023 Resolved: 08-16-2023 05-25-2023 Results Test Name Value Interpretation Reference Range Facility XR hip RT min 2V(w/wo pelvis )*on 07-27-2023 XR hip RT min 2V(w/wo pelvis)* [facility] [place] [address] XRay Report Signed Patient: Ashwini Vickers MR#: [id number] 353 : 1935 Acct:[id number] Age/Sex: 88 / M ADM Date: 07/27/23 Loc: [facility] Room: Type: [facility] Attending Dr: Herminio Lakhani MD Copies to: MD Herminio Carlos MD Ordering Provider: Ashwini Conrad MD Date of Service: 07/27/23 XR/XR hip RT min 2V(w/wo pelvis)*: Closed displaced intertrochanteric fracture of right femur, RIGHT HIP - 2 views: CLINICAL HISTORY: Follow-up right hip fracture COMPARISON: 05/26/2023 Weightbearing AP and frog-lateral views were obtained. There is redemonstration of a dynamic hip screw with short intramedullary kortney. The hardware appears intact and unchanged from the prior. There is redemonstration of an intratrochanteric hip fracture. There is increasing heterotopic bone around the lateral aspect of the hip screw and near the lesser trochanter extending toward the ischium. The fracture shows no change in alignment. There is no new fracture or dislocation. There is mild degenerative change at the hip with marginal spurring and subchondral cystic change. There are no significant soft tissue abnormalities. XR/XR hip RT min 2V(w/wo pelvis)* IMPRESSION: STABLE RIGHT HIP FRACTURE. Impression dictated by: Sofia Rosales M.D.07/27/2023 2:31 PM Dictation Location: [place] [address] Transcribed By: [facility] 07/27/23 1431 Dictated By: Sofia Rosales MD 07/27/23 1428 Signed By: 07/27/23 1431 Normal [facility] Activated partial thrombopla stin time (aPTT) in platelet poor plasma by coagulation aOrdered By: Federico Davis on 07-16-2023 aPTT Coag (PPP) [Time] 30.2 s 25.1-36.5 [facility] Comment on above: A hematocrit value g reater than 55% may lead to inaccurate results in coagulation testing. Patients having hematocrit values >55% require a special collection tube for coagulation studies. Please contact the laboratory at [phone] for redraw instructions. Anisocytosis [Presence] in B lood by Light microscopyOrdered By: Federico Davis on 07-16-2023 Anisocytosis Ql (Bld) Slight Normal [facility] Comment on above: Performed By: #### B UN, SCAN CBC, LYTES ####[facility] [id number] Automated basophil %Ordered By: Federico Davis on 07-16-2023 Basophils/100 WBC (Bld) 0.5 % Normal . [facility] Comment on above: Performed By: #### B UN, SCAN CBC, LYTES ####[address] Automated basophil countOrde red By: Federico Davis on 07-16-2023 Basophils (Bld) [#/Vol] 0.0 10*3/uL Normal 0.0-0.2 [facility] Comment on above: Performed By: #### B UN, SCAN CBC, LYTES ####[address] Automated blood monocyte cou ntOrdered By: Federico Davis on 07-16-2023 Monocytes (Bld) [#/Vol] 1.3 10*3/uL High 0.0-0.8 [facility] Comment on above: Performed By: #### B UN, SCAN CBC, LYTES ####[address] Automated eosinophil %Ordere d By: Federico Davis on 07-16-2023 Eosinophils/100 WBC (Bld) 0.3 % Normal . [facility] Comment on above: Performed By: #### B UN, SCAN CBC, LYTES ####[address] Automated eosinophil countOr dered By: Federico Davis on 07-16-2023 Eosinophils (Bld) [#/Vol] 0.0 10*3/uL Normal 0.0-0.45 [facility] Comment on above: Performed By: #### B UN, SCAN CBC, LYTES ####[address] Automated monocyte %Ordered By: Federico Davis on 07-16-2023 Monocytes/100 WBC (Bld) 15.1 % Normal . [facility] Comment on above: Performed By: #### B UN, SCAN CBC, LYTES ####[address] Automated neutrophil %Ordere d By: Federico Davis on 07-16-2023 Neutrophils/100 WBC (Bld) 75.7 % Normal . [facility] Comment on above: Performed By: #### B UN, SCAN CBC, LYTES ####[place] [id number] [place] [id number] [facility] Carbon dioxide, total [Moles /volume] in Serum or PlasmaOrdered By: Federico Davis on 07-16-2023 CO2 [Moles/Vol] 26.8 mmol/L Normal 21.0-31.0 [facility] Comment on above: Performed By: #### B UN, SCAN CBC, LYTES ####[place] [id number] [facility] Chloride [Moles/volume] in S jihan or PlasmaOrdered By: Federico Davis on 07-16-2023 Chloride [Moles/Vol] 103 mmol/L Normal 98-107 [facility] Comment on above: Performed By: #### B UN, SCAN CBC, LYTES ####[place] [id number] [facility] Coagulation Profileon 2023 aPTT Coag (Bld) [Time] 30.2 s Normal 25.1-36.5 [facility] Comment on above: Result Comment: A he matocrit value greater than 55% may lead to inaccurate results in coagulation testing. Patients having hematocrit values >55% require a special collection tube for coagulation studies. Please contact the laboratory at [phone] for redraw instructions. PERFORMED BY: [address] [place] [id number] PATHOLOGIST PSYCHOLOGIST AIRAM MAST M.D. Performed By: #### P P ####[place] [id number] [facility] Creatinineon 07-16-2023 GFR/1.73 sq M.predicted MDRD (S/P/Bld) [Vol rate/Area] mL/min/{1.73_m2} Normal [facility] Comment on above: Result Comment: PERF ORMED BY: [facility] [address] [place] [id number] PATHOLOGIST PSYCHOLOGIST AIRAM MAST M.D. Performed By: #### C REAT ####[place] [id number] [facility] Creatinine [Mass/volume] in Serum or PlasmaOrdered By: Federico Davis on 07-16-2023 Creatinine [Mass/Vol] 0.71 mg/dL Normal 0.70-1.30 [facility] Comment on above: Performed By: #### C REAT ####[facility] [id number] [place] [address] [facility] ECG 12 lead ECGon 07-16-2023 ECG 12 lead ECG [facility] Main [place] [id number] Electrocardiograph Report Signed Patient: Ashwini Vickers MR#: [id number] 353 : 1935 Acct:[id number] Age/Sex: 88 / M ADM Date: 07/16/23 Loc: CL Room: Type: [facility] SDC Attending Dr: Federico Davis DO Ordering Provider: Federico Davis DO Date of Service: 07/16/2312/03/1599 ECG/ECG 12 lead ECG: Post Angioplasty Procedure Copies to: Test Reason : Blood Pressure : / mmHG Vent. Rate : 065 BPM Atrial Rate : 065 BPM P-R Int : 172 ms QRS Dur : 096 ms QT Int : 440 ms P-R-T Axes : -04 000 149 degrees QTc Int : 457 ms Normal sinus rhythm Voltage criteria for left ventricular hypertrophy Cannot rule out Septal infarct , age undetermined Abnormal ECG No previous ECGs available Confirmed by Chuck Velasco ([id number]) on 07/18/2023 4:16:02 PM Referred By: NO Electronically Signed By:Chuck Velasco Transcribed By: MUS Signed By Chuck Velasco MD 07/18/[address] [facility] ECG 12 lead ECG [facility] Main [address] [address] Electrocardiograph Report Signed Patient: Ashwini Vickers MR#: [id number] 353 : 1935 Acct:[id number] Age/Sex: 88 / M ADM Date: 07/16/23 Loc: CL Room: Type: DEP SDC Attending Dr: Federico Davis DO Ordering Provider: Federico Davis DO Date of Service: 07/16/2312/02/1241 ECG/ECG 12 lead ECG: planned pci Copies to: Test Reason : Blood Pressure : / mmHG Vent. Rate : 063 BPM Atrial Rate : 063 BPM P-R Int : 194 ms QRS Dur : 100 ms QT Int : 484 ms P-R-T Axes : 008 -16 249 degrees QTc Int : 495 ms Normal sinus rhythm Left ventricular hypertrophy with repolarization abnormality Prolonged QT Abnormal ECG When compared with ECG of 30-APR-2023 10:36, T wave inversion now evident in Anterior leads Confirmed by Chuck Velasco ([id number]) on 07/18/2023 4:15:51 PM Referred By: Electronically Signed By:Chuck Velasco Transcribed By: MUS Signed By Chuck Velasco MD 07/18/[address] [facility] Erythrocyte distribution wid th [Ratio] by Automated countOrdered By: Federico Davis on 07-16-2023 Erythrocyte distribution width (RBC) [Ratio] 16.5 % High 12.0-14.8 [facility] Comment on above: Performed By: #### B UN, SCAN CBC, LYTES ####[facility] [id number] [place] [id number] [facility] Erythrocytes [#/volume] in B lood by Automated countOrdered By: Federico Davis on 07-16-2023 RBC (Bld) [#/Vol] 4.17 10*6/uL Normal 3.90-5.60 [facility] Comment on above: Performed By: #### B UN, SCAN CBC, LYTES ####[facility] [id number] [place] [id number] [facility] Glucose Glucometer (BldC) [M ass/Vol]Ordered By: Federico Davis on 07-16-2023 Glucose [Mass/Vol] 398 mg/dL [facility] Comment on above: Random Glucose Refer ence Range is dependent on time and content of last meal. Glucose of more than 200 mg/dL in a nonstressed, ambulatory subject supports the diagnosis of Diabetes Mellitus. Glucose Poct Glucometerson 0 07-16-2023 Commemt1 Glu2: Cleaned Meter Normal [facility] Comment on above: Result Comment: PERF ORMED BY: [facility] [address] [place] [id number] PATHOLOGIST PSYCHOLOGIST AIRAM MAST M.D. Performed By: #### G LULS ####Point of Care testing, Glucose [Mass/Vol] 398 mg/dL Normal [facility] Comment on above: Result Comment: Lester om Glucose Reference Range is dependent on time and content of last meal. Glucose of more than 200 mg/dL in a nonstressed, ambulatory subject supports the diagnosis of Diabetes Mellitus. Performed By: #### G LULS ####Point of Care testing, Glucose [Mass/Vol] 96 mg/dL Normal [facility] Comment on above: Result Comment: [place]ester om Glucose Reference Range is dependent on time and content of last meal. Glucose of more than 200 mg/dL in a nonstressed, ambulatory subject supports the diagnosis of Diabetes Mellitus. PERFORMED BY: [facility] [address] [place] [address] PATHOLOGIST PSYCHOLOGIST AIRAM MAST M.D. Performed By: #### G LULS #### Point of Care testing , Hematocrit [Volume Fraction] of Blood by Automated countOrdered By: Federico Davis on 07-16-2023 Hematocrit (Bld) [Volume fraction] 33.5 % Low 38.8-50.0 [facility] Comment on above: Performed By: #### B UN, SCAN CBC, LYTES ####[facility] [id number] [place] [address] Hemoglobin [Mass/volume] in BloodOrdered By: Federico Davis on 07-16-2023 Hemoglobin (Bld) [Mass/Vol] 11.0 g/dL Low 13.0-17.0 [facility] Comment on above: Performed By: #### B UN, SCAN CBC, LYTES ####[facility] [id number] [place] [address] Hypochromia LM Ql (Bld)Order ed By: Federico Davis on 07-16-2023 Hypochromia Ql (Bld) Marked [facility] INR in Platelet poor plasma by Coagulation assayOrdered By: Federico Davis on 07-16-2023 INR Coag (PPP) [Relative time] 1.1 {INR} Normal [facility] Comment on above: INR Therapeutic Rang e A) Pre- and Peroperative OAT started two weeks before surgery. NOT HIP SURGERY: 1.5 - 2.5 HIP SURGERY: 2 - 3B) Primary and secondary prevention of venous THROMBOSIS: 2 - 3C) Active venous thrombosis, pulmonary embolismand prevention of recurrent venous thrombosis: 2 - 3D) Prevention of arterial thromboembolismincluding patients with mechanical heart valves: 3 - 4.5 Result Comment: INR Therapeutic Range A) Pre- and Peroperative OAT started two weeks before surgery. NOT HIP SURGERY: 1.5 - 2.5 HIP SURGERY: 2 - 3 B) Primary and secondary prevention of venous THROMBOSIS: 2 - 3 C) Active venous thrombosis, pulmonary embolism and prevention of recurrent venous thrombosis: 2 - 3 D) Prevention of arterial thromboembolism including patients with mechanical heart valves: 3 - 4.5 Performed By: #### P P ####[address] Leukocytes [#/volume] correc robert for nucleated erythrocytes in Blood by Automated counOrdered By: Federico Davis on 07-16-2023 WBC corrected for nucl RBC Auto (Bld) [#/Vol] 8.4 10*3/uL 4.1-10.5 [facility] Leukocytes [#/volume] in Blo od by Automated countOrdered By: Federico Davis on 07-16-2023 WBC (Bld) [#/Vol] 8.4 10*3/uL Normal 4.1-10.5 [facility] Comment on above: Performed By: #### B UN, SCAN CBC, LYTES ####[address] Lymphocytes [#/volume] in Bl ood by Automated countOrdered By: Federico Davis on 07-16-2023 Lymphocytes (Bld) [#/Vol] 0.7 10*3/uL Low 1.00-4.8 [facility] Comment on above: Performed By: #### B UN, SCAN CBC, LYTES ####[address] Lymphocytes/100 leukocytes i n Blood by Automated countOrdered By: Federico Davis on 07-16-2023 Lymphocytes/100 WBC (Bld) 8.4 % Normal . [facility] Comment on above: Performed By: #### B UN, SCAN CBC, LYTES ####[facility] [id number] MCH [Entitic mass] by Automa robert countOrdered By: Federico Davis on 07-16-2023 MCH (RBC) [Entitic mass] 26.4 pg Low 27.5-35.2 [facility] Comment on above: Performed By: #### B UN, SCAN CBC, LYTES ####[place] [address] [address] MCHC Auto (RBC) [Mass/Vol]Or dered By: Federico Davis on 07-16-2023 MCHC (RBC) [Mass/Vol] 32.8 g/dL 32.5-35.6 [facility] MCV [Entitic volume] by Auto mated countOrdered By: Federico Davis on 07-16-2023 MCV (RBC) [Entitic vol] 80.4 fL Low 83.5-101 [facility] Comment on above: Performed By: #### B UN, SCAN CBC, LYTES ####[facility] [id number] [place] [address] Macrocytes LM Ql (Bld)Ordere d By: Federico Davis on 07-16-2023 Macrocytes Ql (Bld) Slight [facility] Neutrophils [#/volume] in Bl ood by Automated countOrdered By: Federico Davis on 07-16-2023 Neutrophils (Bld) [#/Vol] 6.3 10*3/uL Normal 1.8-7.7 [facility] Comment on above: Performed By: #### B UN, SCAN CBC, LYTES ####[facility] [id number] No Panel InformationOrdered By: Federico Davis on 07-16-2023 Bedside Glucose Comment Glu2: cleaned meter [facility] Estimated GFR (CKD-EPI) > 60.0 mL/Min [facility] Pharmacy Creatinine Clearance (Chem N/A [facility] Nucleated erythrocytes [Pres ence] in Blood by Automated countOrdered By: Federico Davis on 07-16-2023 Nucleated RBC Auto Ql (Bld) 0.1 /100{WBC} 0-0.5 [facility] Platelet adequacy [Presence] in Blood by Light microscopyOrdered By: Federico Davis on 07-16-2023 Platelets LM Ql (Bld) Normal Normal [facility] Platelet mean volume [Entiti c volume] in Blood by Automated countOrdered By: Federico Davis on 07-16-2023 Platelet mean volume (Bld) [Entitic vol] 10.1 fL Normal 6.6-10.1 [facility] Comment on above: Performed By: #### B UN, SCAN CBC, LYTES ####[facility] [id number] Platelet morphology finding [Identifier] in BloodOrdered By: Federico Davis on 07-16-2023 Platelet morphology finding Nom (Bld) N/A [facility] Platelets Large [Presence] i n Blood by Light microscopyOrdered By: Federico Davis on 07-16-2023 Platelets Large LM Ql (Bld) Slight [facility] Platelets [#/volume] in Bloo d by Automated countOrdered By: Federico Davis on 07-16-2023 Platelets (Bld) [#/Vol] 243 10*3/uL Normal 150-450 [facility] Comment on above: Performed By: #### B UN, SCAN CBC, LYTES ####[facility] [id number] [place] [address] Poikilocytosis [Presence] in Blood by Light microscopyOrdered By: Federico Davis on 07-16-2023 Poikilocytosis LM Ql (Bld) Moderate [facility] Polychromasia [Presence] in Blood by Light microscopyOrdered By: Federico Davis on 07-16-2023 Polychromasia LM Ql (Bld) Moderate [facility] Potassium [Moles/volume] in Serum or PlasmaOrdered By: Federico Davis on 07-16-2023 Potassium [Moles/Vol] 4.2 mmol/L Normal 3.5-5.1 [facility] Comment on above: Performed By: #### B UN, SCAN CBC, LYTES ####[address] Prothrombin time (PT)Ordered By: Federico Davis on 07-16-2023 PT Coag (PPP) [Time] 12.3 s Normal 9.0-12.9 [facility] Comment on above: A hematocrit value g reater than 55% may lead to inaccurate results in coagulation testing. Patients having hematocrit values >55% require a special collection tube for coagulation studies. Please contact the laboratory at [phone] for redraw instructions. Result Comment: A he matocrit value greater than 55% may lead to inaccurate results in coagulation testing. Patients having hematocrit values >55% require a special collection tube for coagulation studies. Please contact the laboratory at [phone] for redraw instructions. Performed By: #### P P ####[address] RBC morphologyOrdered By: Federico Davis on 07-16-2023 RBC morphology finding Nom (Bld) N/A [facility] Scan and CBCon 07-16-2023 Hypochromasia Marked Normal [facility] Comment on above: Performed By: #### B UN, SCAN CBC, LYTES ####[address] Large Platelets Slight Normal [facility] Comment on above: Result Comment: PERF ORMED BY: [facility] [address] [place] [address] PATHOLOGIST PSYCHOLOGIST AIRAM MAST M.D. Performed By: #### B UN, SCAN CBC, LYTES ####[address] Macrocytosis Slight Normal [facility] Comment on above: Performed By: #### B UN, SCAN CBC, LYTES ####[address] Mean Corpuscular HGB Conc 32.8 g/dL Normal 32.5-35.6 [facility] Comment on above: Performed By: #### B UN, SCAN CBC, LYTES ####[place] [address] [address] NRBC% 0.1 /100{WBC} Normal 0-0.5 [facility] Comment on above: Performed By: #### B UN, SCAN CBC, LYTES ####[address] Platelet Estimate Normal Normal Normal [facility] Comment on above: Performed By: #### B UN, SCAN CBC, LYTES ####[place] [address] [address] Poikilocytosis Moderate Normal [facility] Comment on above: Performed By: #### B UN, SCAN CBC, LYTES ####[place] [address] Polychromasia Moderate Normal [facility] Comment on above: Performed By: #### B UN, SCAN CBC, LYTES ####[address] Schistocytes Slight Normal [facility] Comment on above: Performed By: #### B UN, SCAN CBC, LYTES ####[place] [address] Target Cells Moderate Normal [facility] Comment on above: Performed By: #### B UN, SCAN CBC, LYTES ####[address] Schistocytes [Presence] in B lood by Light microscopyOrdered By: Federico Davis on 07-16-2023 Schistocytes LM Ql (Bld) Slight [facility] Serum or plasma anion gap de terminationOrdered By: Federico Davis on 07-16-2023 Anion gap [Moles/Vol] 12.4 mmol/L Normal 6.0-15.0 [facility] Comment on above: Performed By: #### B UN, SCAN CBC, LYTES ####[address] Sodium [Moles/volume] in Ser um or PlasmaOrdered By: Federico Davis on 07-16-2023 Sodium [Moles/Vol] 138 mmol/L Normal 136-145 [facility] Comment on above: Performed By: #### B UN, SCAN CBC, LYTES ####[place] [address] [place] [id number] [facility] Target cellsOrdered By: Federico espino on 07-16-2023 Target cells LM Ql (Bld) Moderate [facility] Urea nitrogen [Mass/volume] in Serum or PlasmaOrdered By: Federico Davis on 07-16-2023 Urea nitrogen [Mass/Vol] 16 mg/dL Normal 7-25 [facility] Comment on above: Result Comment: PERF ORMED BY: [place] [address] PATHOLOGIST PSYCHOLOGIST AIRAM MAST M.D. Performed By: #### B UN, SCAN CBC, LYTES ####[place] [id number] [facility] XR femur RT 2V*on 06-11-2023 XR femur RT 2V* [facility] Main [place] [address] [place] [address] XRay Report Signed Patient: Ashwini Vickers MR#: [id number] : 1935 Acct:[id number] Age/Sex: 88 / M ADM Date: 06/11/23 Loc: [facility] Room: Type: [facility] Attending Dr: Ashwini Conrad MD Copies to: Ashwini Conrad MD Ordering Provider: Ashwini Conrad MD Date of Service: 06/11/23 XR/XR femur RT 2V*: Closed displaced intertrochanteric fracture of right femur, 2 views rightfemur plain film COMPARISON: 05/21/2023 HISTORY: Status post right hip TFN ACUTE FINDINGS: Increase callus formation consistent with interval healing. Stable alignment. DEGENERATIVE CHANGE: Chondrocalcinosis of menisci. Mild degeneration. SOFT TISSUE FINDINGS: Atherosclerosis. JOINT EFFUSION: None POSTOP CHANGES: Stable hardware BONE MINERALIZATION: Adequate XR/XR femur RT 2V* IMPRESSION: Healing fracture. Stable hardware. Impression dictated by: Sheldon Johnson M.D.06/11/2023 2:43 PM Dictation Location: [facility]--12 Transcribed By: ERIBERTO 06/11/231442 Dictated By: Sheldon Johnson DO 06/11/231439 Signed By: 06/11/[address] 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 [x] Verbal consent obtained [] Implied consent - patient with potential emergency medical condition requiring assessment of capacity to refuse treatment and/or transport VITAL SIGNS: see flowsheet documentation Reason for Telehealth Visit: Chief Complaint Patient presents with Hypoglycemia History of Present Illness: This is a very pleasant 88-year-old male with a history of insulin-dependent diabetes who called EMS today after he noticed lightheadedness and confusion. He woke up this morning approximately 730, checked his blood sugar which was 77 at that time and then proceeded to take his insulin. Patient later noticed feeling like his blood sugar was low, and contacted 911. EMS arrived, found his blood sugar to be 63. They administered both oral and IV glucose patient became more alert and the confusion resolved. Repeat glucose after dextrose was 90. Patient denies any falls today but did have a recent fall 2 months ago resultingin a femur fracture. He denies any other complaints and feels like he is in his normal baseline state of health. Additional pertinent PMHx, SocHx, FamHx: Patient lives with his Review of Systems: Denies the following: . Headache, neck pain, back pain, dizziness, chest pain, cough, difficulty breathing, fever, nausea/vomiting, dysuria, leg pain or swelling, weakness. No recent falls or injury. Exam: General: Awake, no distress ENT: normocephalic, atraumatic Pulmonary: No respiratory distress Cardiovascular: Well perfused Neurologic: Oriented to person, place, time and events. Moving all extremities equally. Psychiatric: Appropriate. Good insight and judgement. Medical Decision Making: This is a pleasant 88-year-old male with hypoglycemia, now resolved. This is most likely related to patient taking his insulin without any food. Patient states this is the 2nd time this has happened last 2 weeks. I reinforced the importance of having a meal coinciding with when he takes his insulin. I asked him to contact his diabetes provider to discuss these episodes and to see if modification of his insulin dosing needs to occur. I encouraged him to call back to 911 if he has any recurring symptoms. There were no further questions from the patient, his , or the EMS crew. Disposition Supported by Telehealth Assessment: ET3 transport decisions: Treat in place EMS Disposition Reported: Same ET3 Encounter Completed by: Herminio Weston MD Normal The Between System XR HIP 2 OR 3 VW RIGHTon XR HIP 2 OR 3 VW RIGHT EXAMINATION: XR HIP 2 OR 3 VW RIGHT HISTORY: Hip pain. History of ORIF 04/28. COMPARISONS: None available TECHNIQUE: Frontal view of the pelvis and frontal and lateral views of the hip. FINDINGS: Postsurgical changes of right proximal femur open reduction internal fixation. Proximal femur fracture is again identified. Hardware appears intact. No periprosthetic abnormality. No hip dislocation. Mild degenerative changes of both hips. Visualized bones of the pelvis are within normal limits. Degenerative changes of the lower lumbar spine. Soft tissues are within normal limits. IMPRESSION: No acute osseous abnormality. ELECTRONICALLY SIGNED BY: Marie Betancourt DO Normal Not Available ECG 12 [place] 05-25-2023 Normal sinus rhythm, anterolateral ST T wave abnormality, abnormal ECG [facility] Work Phone: XR hip RT min 2V(w/wo pelvis )*on 05-21-2023 XR hip RT min 2V(w/wo pelvis)* [facility] Main [place] [address] [place] [address] XRay Report Signed Patient: Ashwini Vickers MR#: [id number] : 1935 Acct:[id number] Age/Sex: 88 / M ADM Date: 05/21/23 Loc: [facility] Room: Type: [facility] Attending Dr: Ashwini Conrad MD Copies to: Ashwini Conrad MD Ordering Provider: Ashwini Conrad MD Date of Service: 05/21/23 XR/XR hip RT min 2V(w/wo pelvis)*: Closed displaced intertrochanteric fracture of right femur, 2 views RIGHT plain film COMPARISON: 04/30/23 HISTORY: Status post RIGHT TFN ACUTE FINDINGS: Interval healing. Stable alignment. DEGENERATIVE CHANGE: Unremarkable SOFT TISSUE FINDINGS: Unremarkable JOINT EFFUSION: None POSTOP CHANGES: Stable hardware BONY MINERALIZATION: Adequate XR/XR hip RT min 2V(w/wo pelvis)* IMPRESSION: Interval healing with stable hardware. Impression dictated by: Sheldon Johnson M.D.05/21/2023 4:06 PM Dictation Location: [place] [address] Transcribed By: [facility] 05/21/231605 Dictated By: Sheldon Johnson DO 05/21/231603 Signed By: 05/21/231605 [facility] Glucose Glucometer (BldC) [M ass/Vol]Ordered By: Fredi Medrano on 05-08-2023 Glucose [Mass/Vol] 98 mg/dL [facility] Comment on above: Random Glucose Refer ence Range is dependent on time and content of last meal. Glucose of more than 200 mg/dL in a nonstressed, ambulatory subject supports the diagnosis of Diabetes Mellitus. Glucose Poct Glucometerson 1 Commemt1 Glu2: Cleaned Meter [facility] Comment on above: Result Comment: PERF ORMED BY: [facility] [address] [place] [address] PATHOLOGIST PSYCHOLOGIST AIRAM MAST M.D. Performed By: #### G LULS #### Point of Care testing , Glucose [Mass/Vol] 98 mg/dL Normal [facility] Comment on above: Result Comment: [place] Glucose Reference Range is dependent on time and content of last meal. Glucose of more than 200 mg/dL in a nonstressed, ambulatory subject supports the diagnosis of Diabetes Mellitus. Performed By: #### G LULS #### Point of Care testing , No Panel InformationOrdered By: Fredi Medrano on 05-08-2023 Bedside Glucose Comment Glu2: cleaned meter [facility] Glucose Poct Glucometerson 1 Glucose [Mass/Vol] 146 mg/dL Normal [facility] Comment on above: Result Comment: [place] om Glucose Reference Range is dependent on time and content of last meal. Glucose of more than 200 mg/dL in a nonstressed, ambulatory subject supports the diagnosis of Diabetes Mellitus. PERFORMED BY: [address] [place] [address] PATHOLOGIST PSYCHOLOGIST AIRAM MAST M.D. Performed By: #### G LULS #### Point of Care testing , Commemt1 Glu2: Cleaned Meter [facility] Comment on above: Result Comment: PERF ORMED BY: [address] [place] [id number] PATHOLOGIST PSYCHOLOGIST AIRAM MAST M.D. Performed By: #### G LULS ####Point of Care testing, Glucose [Mass/Vol] 164 mg/dL Normal [facility] Comment on above: Result Comment: [place] om Glucose Reference Range is dependent on time and content of last meal. Glucose of more than 200 mg/dL in a nonstressed, ambulatory subject supports the diagnosis of Diabetes Mellitus. Performed By: #### G LULS ####Point of Care testing, Commemt1 Glu2: Cleaned Meter [facility] Comment on above: Result Comment: PERF ORMED BY: [address] [id number] PATHOLOGIST PSYCHOLOGIST AIRAM MAST M.D. Performed By: #### G LULS ####Point of Care testing, Glucose [Mass/Vol] 238 mg/dL Normal [facility] Comment on above: Result Comment: [place] om Glucose Reference Range is dependent on time and content of last meal. Glucose of more than 200 mg/dL in a nonstressed, ambulatory subject supports the diagnosis of Diabetes Mellitus. Performed By: #### G LULS ####Point of Care testing, Glucose [Mass/Vol] 112 mg/dL Normal [facility] Comment on above: Result Comment: [place] om Glucose Reference Range is dependent on time and content of last meal. Glucose of more than 200 mg/dL in a nonstressed, ambulatory subject supports the diagnosis of Diabetes Mellitus. PERFORMED BY: [address] [place] [id number] PATHOLOGIST PSYCHOLOGIST AIRAM MAST M.D. Performed By: #### G LULS ####Point of Care testing, Glucose [Mass/Vol] 67 mg/dL Normal [facility] Comment on above: Result Comment: [place] om Glucose Reference Range is dependent on time and content of last meal. Glucose of more than 200 mg/dL in a nonstressed, ambulatory subject supports the diagnosis of Diabetes Mellitus. PERFORMED BY: [address] [place] [address] PATHOLOGIST PSYCHOLOGIST AIRAM MAST M.D. Performed By: #### G LULS #### Point of Care testing , Glucose Poct Glucometerson 1 Glucose [Mass/Vol] 258 mg/dL Normal [facility] Comment on above: Result Comment: [place] Glucose Reference Range is dependent on time and content of last meal. Glucose of more than 200 mg/dL in a nonstressed, ambulatory subject supports the diagnosis of Diabetes Mellitus. PERFORMED BY: [address] [place] [address] PATHOLOGIST PSYCHOLOGIST AIRAM MAST M.D. Performed By: #### G LULS ####Point of Care testing, Commemt1 Glu2: Cleaned Meter Normal [facility] Comment on above: Result Comment: PERF ORMED BY: [address] [place] [id number] PATHOLOGIST PSYCHOLOGIST AIRAM MAST M.D. Performed By: #### G LULS ####Point of Care testing, Glucose [Mass/Vol] 308 mg/dL Normal [facility] Comment on above: Result Comment: [place] om Glucose Reference Range is dependent on time and content of last meal. Glucose of more than 200 mg/dL in a nonstressed, ambulatory subject supports the diagnosis of Diabetes Mellitus. Performed By: #### G LULS ####Point of Care testing, Commemt1 Glu2: Cleaned Meter Normal [facility] Comment on above: Result Comment: PERF ORMED BY: [address] [place] [address] PATHOLOGIST PSYCHOLOGIST AIRAM MAST M.D. Performed By: #### G LULS #### Point of Care testing , Glucose [Mass/Vol] 222 mg/dL Normal [facility] Comment on above: Result Comment: [place] om Glucose Reference Range is dependent on time and content of last meal. Glucose of more than 200 mg/dL in a nonstressed, ambulatory subject supports the diagnosis of Diabetes Mellitus. Performed By: #### G LULS #### Point of Care testing , Glucose [Mass/Vol] 114 mg/dL Normal [facility] Comment on above: Result Comment: [place] om Glucose Reference Range is dependent on time and content of last meal. Glucose of more than 200 mg/dL in a nonstressed, ambulatory subject supports the diagnosis of Diabetes Mellitus. PERFORMED BY: [facility] [address] [place] [address] PATHOLOGIST PSYCHOLOGIST AIRAM MAST M.D. Performed By: #### G LULS ####Point of Care testing, Glucose Poct Glucometerson 1 Glucose [Mass/Vol] 141 mg/dL Normal [facility] Comment on above: Result Comment: [place] om Glucose Reference Range is dependent on time and content of last meal. Glucose of more than 200 mg/dL in a nonstressed, ambulatory subject supports the diagnosis of Diabetes Mellitus. PERFORMED BY: [facility] [address] [place] [address] PATHOLOGIST PSYCHOLOGIST AIRAM MAST M.D. Performed By: #### G LULS ####Point of Care testing, Glucose [Mass/Vol] 153 mg/dL Normal [facility] Comment on above: Result Comment: Lester om Glucose Reference Range is dependent on time and content of last meal. Glucose of more than 200 mg/dL in a nonstressed, ambulatory subject supports the diagnosis of Diabetes Mellitus. PERFORMED BY: [address] [place] [address] PATHOLOGIST PSYCHOLOGIST AIRAM MAST M.D. Performed By: #### G LULS #### Point of Care testing , Commemt1 Glu2: Cleaned Meter Normal [facility] Comment on above: Result Comment: PERF ORMED BY: [address] [place] [address] PATHOLOGIST PSYCHOLOGIST AIRAM MAST M.D. Performed By: #### G LULS ####Point of Care testing, Glucose [Mass/Vol] 224 mg/dL Normal [facility] Comment on above: Result Comment: Lester om Glucose Reference Range is dependent on time and content of last meal. Glucose of more than 200 mg/dL in a nonstressed, ambulatory subject supports the diagnosis of Diabetes Mellitus. Performed By: #### G LULS ####Point of Care testing, Glucose [Mass/Vol] 106 mg/dL Normal [facility] Comment on above: Result Comment: Lester om Glucose Reference Range is dependent on time and content of last meal. Glucose of more than 200 mg/dL in a nonstressed, ambulatory subject supports the diagnosis of Diabetes Mellitus. PERFORMED BY: [address] [place] [address] PATHOLOGIST PSYCHOLOGIST AIRAM MAST M.D. Performed By: #### G LULS #### Point of Care testing , Glucose [Mass/Vol] 124 mg/dL Normal [facility] Comment on above: Result Comment: Lester Glucose Reference Range is dependent on time and content of last meal. Glucose of more than 200 mg/dL in a nonstressed, ambulatory subject supports the diagnosis of Diabetes Mellitus. PERFORMED BY: [address] [place] [address] PATHOLOGIST PSYCHOLOGIST AIRAM MAST M.D. Performed By: #### G LULS #### Point of Care testing , Alanine aminotransferase [En zymatic activity/volume] in Serum or PlasmaOrdered By: Fredi Medrano on 05-04-2023 ALT [Catalytic activity/Vol] 14 U/L 7-52 [facility] Albumin [Mass/volume] in Ser um or Plasma by Bromocresol green (BCG) dye binding methoOrdered By: Fredi Medrano on 05-04-2023 Albumin BCG dye [Mass/Vol] 2.9 g/dL 3.5-5.7 [facility] Alkaline phosphatase [Enzyma tic activity/volume] in Serum or PlasmaOrdered By: Fredi Medrano on 05-04-2023 ALP [Catalytic activity/Vol] 87 U/L 34-104 [facility] Aspartate aminotransferase [ Enzymatic activity/volume] in Serum or PlasmaOrdered By: Fredi Medrano on 05-04-2023 AST [Catalytic activity/Vol] 20 U/L 13-39 [facility] Basophils Auto (Bld) [#/Vol] Ordered By: Fredi Medrano on 05-04-2023 Basophils (Bld) [#/Vol] 0.0 10*3/uL 0.0-0.2 [facility] Basophils/100 WBC Auto (Bld) Ordered By: Fredi Medrano on 05-04-2023 Basophils/100 WBC (Bld) 0.7 % . [facility] Bilirubin.total [Mass/volume ] in Serum or PlasmaOrdered By: Fredi Medrano on 05-04-2023 Bilirubin [Mass/Vol] 0.5 mg/dL 0.3-1.0 [facility] Calcium [Mass/volume] in Ser um or PlasmaOrdered By: Fredi Medrano on 05-04-2023 Calcium [Mass/Vol] 8.0 mg/dL 8.6-10.3 [facility] Carbon dioxide, total [Moles /volume] in Serum or PlasmaOrdered By: Fredi Medrano on 05-04-2023 CO2 [Moles/Vol] 28.0 mmol/L 21.0-31.0 [facility] Chloride [Moles/volume] in S jihan or PlasmaOrdered By: Fredi Medrano on 05-04-2023 Chloride [Moles/Vol] 102 mmol/L 98-107 [facility] Complete Blood Count Auto Di ffon 05-04-2023 Basophils (Bld) [#/Vol] 0.0 10*3/uL Normal 0.0-0.2 [facility] Comment on above: Result Comment: PERF ORMED BY: [facility] [place] [address] PATHOLOGIST PSYCHOLOGIST AIRAM MAST M.D. Performed By: #### G LULS #### Point of Care testing , Basophils/100 WBC (Bld) 0.7 % Normal . [facility] Comment on above: Performed By: #### G LULS #### Point of Care testing , Eosinophils (Bld) [#/Vol] 0.1 10*3/uL Normal 0.0-0.45 [facility] Comment on above: Performed By: #### G LULS #### Point of Care testing , Eosinophils/100 WBC (Bld) 1.5 % Normal . [facility] Comment on above: Performed By: #### G LULS #### Point of Care testing , Erythrocyte distribution width (RBC) [Ratio] 16.8 % High 12.0-14.8 [facility] Comment on above: Performed By: #### G LULS #### Point of Care testing , Hematocrit (Bld) [Volume fraction] 29.3 % Low 38.8-50.0 [facility] Comment on above: Performed By: #### G LULS #### Point of Care testing , Hemoglobin (Bld) [Mass/Vol] 9.7 g/dL Low 13.0-17.0 [facility] Comment on above: Performed By: #### G LULS #### Point of Care testing , Lymphocytes (Bld) [#/Vol] 1.6 10*3/uL Normal 1.00-4.8 [facility] Comment on above: Performed By: #### G LULS #### Point of Care testing , Lymphocytes/100 WBC (Bld) 23.0 % Normal . [facility] Comment on above: Performed By: #### G LULS #### Point of Care testing , MCH (RBC) [Entitic mass] 27.9 pg Normal 27.5-35.2 [facility] Comment on above: Performed By: #### Aileen NATION #### Point of Care testing , MCV (RBC) [Entitic vol] 84.6 fL Normal 83.5-101 [facility] Comment on above: Performed By: #### Aileen SUMMERSLS #### Point of Care testing , Mean Corpuscular HGB Conc 33.0 g/dL Normal 32.5-35.6 [facility] Comment on above: Performed By: #### G RIOS #### Point of Care testing , Monocytes (Bld) [#/Vol] 0.7 10*3/uL Normal 0.0-0.8 [facility] Comment on above: Performed By: #### Aileen NATION #### Point of Care testing , Monocytes/100 WBC (Bld) 9.9 % Normal . [facility] Comment on above: Performed By: #### Aileen SUMMERSLS #### Point of Care testing , Neutrophils (Bld) [#/Vol] 4.6 10*3/uL Normal 1.8-7.7 [facility] Comment on above: Performed By: #### Aileen NATION #### Point of Care testing , Neutrophils/100 WBC (Bld) 64.9 % Normal . [facility] Comment on above: Performed By: #### Aileen NATION #### Point of Care testing , NRBC% 0.2 /100{WBC} Normal 0-0.5 [facility] Comment on above: Performed By: #### Aileen SUMMERSLS #### Point of Care testing , Platelet mean volume (Bld) [Entitic vol] 8.9 fL Normal 6.6-10.1 [facility] Comment on above: Performed By: #### Aileen NATION #### Point of Care testing , Platelets (Bld) [#/Vol] 218 10*3/uL Normal 150-450 [facility] Comment on above: Performed By: #### Aileen NATION #### Point of Care testing , RBC (Bld) [#/Vol] 3.46 10*6/uL Low 3.90-5.60 [facility] Comment on above: Performed By: #### Aileen NATION #### Point of Care testing , WBC (Bld) [#/Vol] 7.2 10*3/uL Normal 4.1-10.5 [facility] Comment on above: Performed By: #### Aileen NATION #### Point of Care testing , Comprehensive Metabolic Pane fabby 05-04-2023 Albumin [Mass/Vol] 2.9 g/dL Low 3.5-5.7 [facility] Comment on above: Performed By: #### Aileen NATION #### Point of Care testing , Albumin/Globulin [Mass ratio] 1.2 {ratio} Normal [facility] Comment on above: Performed By: #### Aileen NATION #### Point of Care testing , ALP [Catalytic activity/Vol] 87 U/L Normal 34-104 [facility] Comment on above: Performed By: #### Aileen NATION #### Point of Care testing , ALT [Catalytic activity/Vol] 14 U/L Normal 7-52 [facility] Comment on above: Performed By: #### Aileen NATION #### Point of Care testing , Anion gap [Moles/Vol] 8.6 mmol/L Normal 6.0-15.0 [facility] Comment on above: Performed By: #### Aileen NATION #### Point of Care testing , AST [Catalytic activity/Vol] 20 U/L Normal 13-39 [facility] Comment on above: Performed By: #### Aileen NATION #### Point of Care testing , Bilirubin [Mass/Vol] 0.5 mg/dL Normal 0.3-1.0 [facility] Comment on above: Performed By: #### Aileen NATION #### Point of Care testing , Calcium [Mass/Vol] 8.0 mg/dL Low 8.6-10.3 [facility] Comment on above: Performed By: #### Aileen NATION #### Point of Care testing , Chloride [Moles/Vol] 102 mmol/L Normal 98-107 [facility] Comment on above: Performed By: #### G LULS #### Point of Care testing , CO2 [Moles/Vol] 28.0 mmol/L Normal 21.0-31.0 [facility] Comment on above: Performed By: #### G KRISTOPHERLS #### Point of Care testing , Creatinine [Mass/Vol] 0.61 mg/dL Low 0.70-1.30 [facility] Comment on above: Performed By: #### G KRISTOPHERLS #### Point of Care testing , Creatinine Clr Calc Pharmacy 62.25 [facility] Comment on above: Performed By: #### G KRISTPOHERLS #### Point of Care testing , GFR/1.73 sq M.predicted MDRD (S/P/Bld) [Vol rate/Area] mL/min/{1.73_m2} [facility] Comment on above: Performed By: #### G KRISTOPHERLS #### Point of Care testing , Globulin (S) [Mass/Vol] 2.5 g/dL [facility] Comment on above: Performed By: #### G KRISTOPHERLS #### Point of Care testing , Glucose [Mass/Vol] 120 mg/dL High 70-100 [facility] Comment on above: Result Comment: [facility] Glucose Reference Range is dependent on time and content of last meal. Glucose of more than 200 mg/dL in a nonstressed, ambulatory subject supports the diagnosis of Diabetes Mellitus. ADA recommended reference range Performed By: #### G KRISTOPHERLS #### Point of Care testing , Potassium [Moles/Vol] 4.6 mmol/L Normal 3.5-5.1 [facility] Comment on above: Performed By: #### G KRISTOPHERLS #### Point of Care testing , Protein [Mass/Vol] 5.4 g/dL Low 6.4-8.9 [facility] Comment on above: Performed By: #### G KRISTOPHERLS #### Point of Care testing , Sodium [Moles/Vol] 134 mmol/L Low 136-145 [facility] Comment on above: Performed By: #### G KRISTOPHERLS #### Point of Care testing , Urea nitrogen [Mass/Vol] 22 mg/dL Normal 7-25 [facility] Comment on above: Performed By: #### G LULS #### Point of Care testing , Creatinine [Mass/volume] in Serum or PlasmaOrdered By: Fredi Medrano on 05-04-2023 Creatinine [Mass/Vol] 0.61 mg/dL 0.70-1.30 [facility] Eosinophils Auto (Bld) [#/Vo l]Ordered By: Fredi Medrano on 05-04-2023 Eosinophils (Bld) [#/Vol] 0.1 10*3/uL 0.0-0.45 [facility] Eosinophils/100 WBC Auto (Bl d)Ordered By: Fredi Medrano on 05-04-2023 Eosinophils/100 WBC (Bld) 1.5 % . [facility] Erythrocyte distribution wid th Auto (RBC) [Ratio]Ordered By: Fredi Medrano on 05-04-2023 Erythrocyte distribution width (RBC) [Ratio] 16.8 % 12.0-14.8 [facility] Globulin Calc (S) [Mass/Vol] Ordered By: Fredi Medrano on 05-04-2023 Globulin (S) [Mass/Vol] 2.5 g/dL [facility] Glucose Poct Glucometerson 1 Glucose [Mass/Vol] 125 mg/dL Normal [facility] Comment on above: Result Comment: [facility] Glucose Reference Range is dependent on time and content of last meal. Glucose of more than 200 mg/dL in a nonstressed, ambulatory subject supports the diagnosis of Diabetes Mellitus. PERFORMED BY: [facility] [address] [facility] [address] [address] PATHOLOGIST PSYCHOLOGIST AIRAM MAST M.D. Performed By: #### G LULS ####Point of Care testing, Glucose [Mass/Vol] 210 mg/dL Normal [facility] Comment on above: Result Comment: [facility] Glucose Reference Range is dependent on time and content of last meal. Glucose of more than 200 mg/dL in a nonstressed, ambulatory subject supports the diagnosis of Diabetes Mellitus. PERFORMED BY: [facility] [address] [place] [address] PATHOLOGIST PSYCHOLOGIST AIRAM MAST M.D. Performed By: #### G LULS ####Point of Care testing, Glucose [Mass/Vol] 213 mg/dL Normal [facility] Comment on above: Result Comment: [facility] om Glucose Reference Range is dependent on time and content of last meal. Glucose of more than 200 mg/dL in a nonstressed, ambulatory subject supports the diagnosis of Diabetes Mellitus. PERFORMED BY: [facility] [address] [place] [address] PATHOLOGIST PSYCHOLOGIST AIRAM MAST M.D. Performed By: #### G LULS ####Point of Care testing, Commemt1 Glu2: Cleaned Meter Normal [facility] Comment on above: Result Comment: PERF ORMED BY: [facility] [address] [place] [id number] PATHOLOGIST PSYCHOLOGIST AIRAM MAST M.D. Performed By: #### G LULS #### Point of Care testing , Glucose [Mass/Vol] 197 mg/dL Normal [facility] Comment on above: Result Comment: Lester om Glucose Reference Range is dependent on time and content of last meal. Glucose of more than 200 mg/dL in a nonstressed, ambulatory subject supports the diagnosis of Diabetes Mellitus. Performed By: #### G LULS #### Point of Care testing , Glucose [Mass/volume] in Ser um or PlasmaOrdered By: Fredi Medrano on 05-04-2023 Glucose [Mass/Vol] 120 mg/dL 70-100 [facility] Comment on above: ADA recommended refe rence rangeRandom Glucose Reference Range is dependent on time and content of last meal. Glucose of more than 200 mg/dL in a nonstressed, ambulatory subject supports the diagnosis of Diabetes Mellitus. Hematocrit Auto (Bld) [Volum e fraction]Ordered By: Fredi Medrano on 05-04-2023 Hematocrit (Bld) [Volume fraction] 29.3 % 38.8-50.0 [facility] Hemoglobin [Mass/volume] in BloodOrdered By: Fredi Medrano on 05-04-2023 Hemoglobin (Bld) [Mass/Vol] 9.7 g/dL 13.0-17.0 [facility] Leukocytes [#/volume] correc robert for nucleated erythrocytes in Blood by Automated counOrdered By: Fredi Medrano on 05-04-2023 WBC corrected for nucl RBC Auto (Bld) [#/Vol] 7.2 10*3/uL 4.1-10.5 [facility] Lymphocytes Auto (Bld) [#/Vo l]Ordered By: Fredi Medrano on 05-04-2023 Lymphocytes (Bld) [#/Vol] 1.6 10*3/uL 1.00-4.8 [facility] Lymphocytes/100 WBC Auto (Bl d)Ordered By: Fredi Medrano on 05-04-2023 Lymphocytes/100 WBC (Bld) 23.0 % . [facility] MCH Auto (RBC) [Entitic mass ]Ordered By: Fredi Medrano on 05-04-2023 MCH (RBC) [Entitic mass] 27.9 pg 27.5-35.2 [facility] MCHC Auto (RBC) [Mass/Vol]Or dered By: Fredi Medrano on 05-04-2023 MCHC (RBC) [Mass/Vol] 33.0 g/dL 32.5-35.6 [facility] MCV Auto (RBC) [Entitic vol] Ordered By: Fredi Medrano on 05-04-2023 MCV (RBC) [Entitic vol] 84.6 fL 83.5-101 [facility] Monocytes Auto (Bld) [#/Vol] Ordered By: Fredi Medrano on 05-04-2023 Monocytes (Bld) [#/Vol] 0.7 10*3/uL 0.0-0.8 [facility] Monocytes/100 WBC Auto (Bld) Ordered By: Fredi Medrano on 05-04-2023 Monocytes/100 WBC (Bld) 9.9 % . [facility] Neutrophils Auto (Bld) [#/Vo l]Ordered By: Fredi Medrano on 05-04-2023 Neutrophils (Bld) [#/Vol] 4.6 10*3/uL 1.8-7.7 [facility] Neutrophils/100 WBC Auto (Bl d)Ordered By: Fredi Medrano on 05-04-2023 Neutrophils/100 WBC (Bld) 64.9 % . [facility] No Panel InformationOrdered By: Fredi Medrano on 05-04-2023 Estimated GFR (CKD-EPI) > 60.0 mL/Min [facility] Creatinine Clearance (Chem 62.25 [facility] Nucleated erythrocytes [Pres ence] in Blood by Automated countOrdered By: Fredi Medrano on 05-04-2023 Nucleated RBC Auto Ql (Bld) 0.2 /100{WBC} 0-0.5 [facility] Platelet mean volume Auto (B ld) [Entitic vol]Ordered By: Fredi Medrano on 05-04-2023 Platelet mean volume (Bld) [Entitic vol] 8.9 fL 6.6-10.1 [facility] Platelets Auto (Bld) [#/Vol] Ordered By: Fredi Medrano on 05-04-2023 Platelets (Bld) [#/Vol] 218 10*3/uL 150-450 [facility] Potassium [Moles/volume] in Serum or PlasmaOrdered By: Fredi Medrano on 05-04-2023 Potassium [Moles/Vol] 4.6 mmol/L 3.5-5.1 [facility] Prealbuminon 05-04-2023 Prealbumin [Mass/Vol] 10.2 mg/dL Low 17.0-34.0 [facility] Comment on above: Result Comment: PERF ORMED BY: [facility] [address] [place] [address] PATHOLOGIST PSYCHOLOGIST AIRAM MAST M.D. Performed By: #### G LULS #### Point of Care testing , Prealbumin [Mass/volume] in Serum or PlasmaOrdered By: Fredi Medrano on 05-04-2023 Prealbumin [Mass/Vol] 10.2 mg/dL 17.0-34.0 [facility] Protein [Mass/volume] in Ser um or PlasmaOrdered By: Fredi Medrano on 05-04-2023 Protein [Mass/Vol] 5.4 g/dL 6.4-8.9 [facility] RBC Auto (Bld) [#/Vol]Ordere d By: Fredi Medrano on 05-04-2023 RBC (Bld) [#/Vol] 3.46 10*6/uL 3.90-5.60 [facility] Serum or plasma albumin/glob ulin mass ratioOrdered By: Fredi Medrano on 05-04-2023 Albumin/Globulin [Mass ratio] 1.2 {ratio} [facility] Serum or plasma anion gap de terminationOrdered By: Fredi Medrano on 05-04-2023 Anion gap [Moles/Vol] 8.6 mmol/L 6.0-15.0 [facility] Sodium [Moles/volume] in Ser um or PlasmaOrdered By: Fredi Medrano on 05-04-2023 Sodium [Moles/Vol] 134 mmol/L 136-145 [facility] Urea nitrogen [Mass/volume] in Serum or PlasmaOrdered By: Fredi Medrano on 05-04-2023 Urea nitrogen [Mass/Vol] 22 mg/dL 7-25 [facility] WBC Auto (Bld) [#/Vol]Ordere d By: Fredi Medrano on 05-04-2023 WBC (Bld) [#/Vol] 7.2 10*3/uL 4.1-10.5 [facility] Cholesterol [Mass/volume] in Serum or PlasmaOrdered By: Anat ePrez on 05-03-2023 Cholesterol [Mass/Vol] 98 mg/dL 140-200 [facility] Comment on above: Chol less than 200 m g/dl low riskChol 201-239 mg/dl borderline riskChol 240 mg/dl and greater high risk Cholesterol in LDL Calc [Mas s/Vol]Ordered By: Anat Perez on 05-03-2023 Cholesterol in LDL [Mass/Vol] 46 mg/dL 0-100 [facility] Comment on above: LDL ATP III CLASSIFI CATIONLDL less than 100 mg/dL OptimalLDL 100-129 mg/dL Near or above optimalLDL 130-159 mg/dL Borderline highLDL 160-189 mg/dL HighLDL greater than 189 mg/dL Very high Cholesterol in VLDL Calc [Ma ss/Vol]Ordered By: Anat Perez on 05-03-2023 Cholesterol in VLDL [Mass/Vol] 12 mg/dL [facility] Glucose Glucometer (BldC) [M ass/Vol]Ordered By: Humberto Diaz on 05-03-2023 Glucose [Mass/Vol] 388 mg/dL [facility] Comment on above: Random Glucose Refer ence Range is dependent on time and content of last meal. Glucose of more than 200 mg/dL in a nonstressed, ambulatory subject supports the diagnosis of Diabetes Mellitus. Glucose Poct Glucometerson 1 Glucose [Mass/Vol] 385 mg/dL Normal [facility] Comment on above: Result Comment: [facility] om Glucose Reference Range is dependent on time and content of last meal. Glucose of more than 200 mg/dL in a nonstressed, ambulatory subject supports the diagnosis of Diabetes Mellitus. PERFORMED BY: [facility] [address] [facility] [address] [place] [address] PATHOLOGIST PSYCHOLOGIST AIRAM MAST M.D. Performed By: #### G LULS ####Point of Care testing, Glucose [Mass/Vol] 379 mg/dL Normal [facility] Comment on above: Result Comment: [facility] om Glucose Reference Range is dependent on time and content of last meal. Glucose of more than 200 mg/dL in a nonstressed, ambulatory subject supports the diagnosis of Diabetes Mellitus. PERFORMED BY: [facility] [address] [address] PATHOLOGIST PSYCHOLOGIST AIRAM MAST M.D. Performed By: #### G LULS ####Point of Care testing, Glucose [Mass/Vol] 388 mg/dL Normal [facility] Comment on above: Result Comment: [facility] om Glucose Reference Range is dependent on time and content of last meal. Glucose of more than 200 mg/dL in a nonstressed, ambulatory subject supports the diagnosis of Diabetes Mellitus. PERFORMED BY: [facility] [address] [place] [id number] PATHOLOGIST PSYCHOLOGIST AIRAM MAST M.D. Performed By: #### G LULS #### Point of Care testing , Glucose [Mass/Vol] 310 mg/dL Normal [facility] Comment on above: Result Comment: [facility] Glucose Reference Range is dependent on time and content of last meal. Glucose of more than 200 mg/dL in a nonstressed, ambulatory subject supports the diagnosis of Diabetes Mellitus. PERFORMED BY: [facility] [address] [place] [id number] PATHOLOGIST PSYCHOLOGIST AIRAM MAST M.D. Performed By: #### G LUMARYA #### Point of Care testing , Lipid Panelon 05-03-2023 Cholesterol [Mass/Vol] 98 mg/dL Low 140-200 [facility] Comment on above: Result Comment: Chol less than 200 mg/dl low risk Chol 201-239 mg/dl borderline risk Chol 240 mg/dl and greater high risk Performed By: #### L IPID ####[facility] [id number] [place] [id number] [facility] Cholesterol in HDL [Mass/Vol] 39 mg/dL Normal 23-92 [facility] Comment on above: Result Comment: HDL CHOL ATP-III CLASSIFICATION Cardiovascular Risk HDL > or equal to 60 mg/dL LOW HDL < 40 mg/dL HIGH Performed By: #### L IPID ####[address] [address] [facility] Cholesterol.total/Cho lesterol in HDL [Mass ratio] 2.5 {ratio} Normal <5.0 [facility] Comment on above: Result Comment: PERF ORMED BY: [facility] [address] [place] [id number] PATHOLOGIST PSYCHOLOGIST AIRAM MAST M.D. Performed By: #### L IPID ####[facility] [id number] [place] [address] [place] LDL Cholesterol,Calculate d 46 mg/dL Normal 0-100 [facility] Comment on above: Result Comment: LDL ATP III CLASSIFICATION LDL less than 100 mg/dL Optimal LDL 100-129 mg/dL Near or above optimal LDL 130-159 mg/dL Borderline high LDL 160-189 mg/dL High LDL greater than 189 mg/dL Very high Performed By: #### L IPID ####[facility] [id number] Triglyceride w/Reflex 64 mg/dL Normal 0-149 [facility] Comment on above: Result Comment: TRIG ATP III CLASSIFICATION TRIG less than 150 mg/dL Normal TRIG 150-199 mg/dL Borderline high TRIG 200-500 mg/dL High TRIG greater than 500 mg/dL Very high Standard traceable to the Center for Disease Conrtrol and Prevention (CDC) test method. Performed By: #### L IPID ####[facility] [id number] VLDL CHOLESTEROL 12 mg/dL Normal [facility] Comment on above: Performed By: #### L IPID ####[facility] [id number] Serum or plasma high density lipoprotein (HDL) cholesterol measurementOrdered By: Anat Perez on 05-03-2023 Cholesterol in HDL [Mass/Vol] 39 mg/dL [facility] Comment on above: HDL CHOL ATP-III CLA SSIFICATION Cardiovascular RiskHDL > or equal to 60 mg/dL LOWHDL < 40 mg/dL HIGH Serum or plasma total choles terol/high density lipoprotein (HDL) cholesterol mass ratOrdered By: Anat Perez on 05-03-2023 Cholesterol.total/Cho lesterol in HDL [Mass ratio] 2.5 {ratio} <5.0 [facility] Triglyceride [Mass/volume] i n Serum or PlasmaOrdered By: Anat Perez on 05-03-2023 Triglyceride [Mass/Vol] 64 mg/dL 0-149 [facility] Comment on above: TRIG ATP III CLASSIF ICATIONTRIG less than 150 mg/dL NormalTRIG 150-199 mg/dL Borderline highTRIG 200-500 mg/dL High TRIG greater than 500 mg/dL Very highStandard traceable to the Center for Disease Conrtrol and Prevention (CDC) test method. Basic Metabolic Panelon 04-12 Anion gap [Moles/Vol] 8.1 mmol/L Normal 6.0-15.0 [facility] Comment on above: Performed By: #### B MP, CBC, LIPID ####[place] [address] Calcium [Mass/Vol] 8.0 mg/dL Low 8.6-10.3 [facility] Comment on above: Performed By: #### B MP, CBC, LIPID ####[place] [id number] [facility] Chloride [Moles/Vol] 97 mmol/L Low 98-107 [facility] Comment on above: Performed By: #### B MP, CBC, LIPID ####[place] [address] CO2 [Moles/Vol] 30.1 mmol/L Normal 21.0-31.0 [facility] Comment on above: Performed By: #### B MP, CBC, LIPID ####[address] Creatinine [Mass/Vol] 0.86 mg/dL Normal 0.70-1.30 [facility] Comment on above: Performed By: #### B MP, CBC, LIPID ####[address] Creatinine Clr Calc Pharmacy 59.22 [facility] Comment on above: Performed By: #### B MP, CBC, LIPID ####[address] GFR/1.73 sq M.predicted MDRD (S/P/Bld) [Vol rate/Area] mL/min/{1.73_m2} [facility] Comment on above: Performed By: #### B MP, CBC, LIPID ####[address] Glucose [Mass/Vol] 87 mg/dL Normal 70-100 [facility] Comment on above: Result Comment: [facility] Glucose Reference Range is dependent on time and content of last meal. Glucose of more than 200 mg/dL in a nonstressed, ambulatory subject supports the diagnosis of Diabetes Mellitus. ADA recommended reference range Performed By: #### B MP, CBC, LIPID ####[facility] [id number] [address] Potassium [Moles/Vol] 4.2 mmol/L Normal 3.5-5.1 [facility] Comment on above: Performed By: #### B MP, CBC, LIPID ####[facility] [id number] [address] Sodium [Moles/Vol] 131 mmol/L Low 136-145 [facility] Comment on above: Performed By: #### B MP, CBC, LIPID ####[facility] [id number] [address] Urea nitrogen [Mass/Vol] 21 mg/dL Normal 7-25 [facility] Comment on above: Performed By: #### B MP, CBC, LIPID ####[facility] [id number] [address] Basophils Auto (Bld) [#/Vol] Ordered By: Sushant Cordon on 05-02-2023 Basophils (Bld) [#/Vol] 0.0 10*3/uL 0.0-0.2 [facility] Basophils/100 WBC Auto (Bld) Ordered By: Sushant Cordon on 05-02-2023 Basophils/100 WBC (Bld) 0.1 % . [facility] Calcium [Mass/volume] in Ser um or PlasmaOrdered By: Sushant Cordon on 05-02-2023 Calcium [Mass/Vol] 8.0 mg/dL 8.6-10.3 [facility] Carbon dioxide, total [Moles /volume] in Serum or PlasmaOrdered By: Sushant Cordon on 05-02-2023 CO2 [Moles/Vol] 30.1 mmol/L 21.0-31.0 [facility] Chloride [Moles/volume] in S jihan or PlasmaOrdered By: Sushant Cordon on 05-02-2023 Chloride [Moles/Vol] 97 mmol/L 98-107 [facility] Complete Blood Count Auto Di ffon 05-02-2023 Basophils (Bld) [#/Vol] 0.0 10*3/uL Normal 0.0-0.2 [facility] Comment on above: Result Comment: PERF ORMED BY: [facility] [address] [place] [address] PATHOLOGIST PSYCHOLOGIST AIRAM MAST M.D. Performed By: #### B MP, CBC, LIPID ####[place] [address] Basophils/100 WBC (Bld) 0.1 % Normal . [facility] Comment on above: Performed By: #### B MP, CBC, LIPID ####[place] [address] Eosinophils (Bld) [#/Vol] 0.1 10*3/uL Normal 0.0-0.45 [facility] Comment on above: Performed By: #### B MP, CBC, LIPID ####[address] Eosinophils/100 WBC (Bld) 0.8 % Normal . [facility] Comment on above: Performed By: #### B MP, CBC, LIPID ####[address] Erythrocyte distribution width (RBC) [Ratio] 17.0 % High 12.0-14.8 [facility] Comment on above: Performed By: #### B MP, CBC, LIPID ####[address] Hematocrit (Bld) [Volume fraction] 27.8 % Low 38.8-50.0 [facility] Comment on above: Performed By: #### B MP, CBC, LIPID ####[place] [id number] [facility] Hemoglobin (Bld) [Mass/Vol] 9.3 g/dL Low 13.0-17.0 [facility] Comment on above: Performed By: #### B MP, CBC, LIPID ####[place] [address] Lymphocytes (Bld) [#/Vol] 1.2 10*3/uL Normal 1.00-4.8 [facility] Comment on above: Performed By: #### B MP, CBC, LIPID ####[place] [id number] [facility] Lymphocytes/100 WBC (Bld) 13.7 % Normal . [facility] Comment on above: Performed By: #### B MP, CBC, LIPID ####[address] MCH (RBC) [Entitic mass] 28.3 pg Normal 27.5-35.2 [facility] Comment on above: Performed By: #### B MP, CBC, LIPID ####[address] MCV (RBC) [Entitic vol] 84.2 fL Normal 83.5-101 [facility] Comment on above: Performed By: #### B MP, CBC, LIPID ####[address] Mean Corpuscular HGB Conc 33.6 g/dL Normal 32.5-35.6 [facility] Comment on above: Performed By: #### B MP, CBC, LIPID ####[address] Monocytes (Bld) [#/Vol] 1.2 10*3/uL High 0.0-0.8 [facility] Comment on above: Performed By: #### B MP, CBC, LIPID ####[address] Monocytes/100 WBC (Bld) 13.5 % Normal . [facility] Comment on above: Performed By: #### B MP, CBC, LIPID ####[address] Neutrophils (Bld) [#/Vol] 6.2 10*3/uL Normal 1.8-7.7 [facility] Comment on above: Performed By: #### B MP, CBC, LIPID ####[place] [id number] [facility] Neutrophils/100 WBC (Bld) 71.9 % Normal . [facility] Comment on above: Performed By: #### B MP, CBC, LIPID ####[place] [address] [place] [id number] [facility] NRBC% 0.0 /100{WBC} Normal 0-0.5 [facility] Comment on above: Performed By: #### B MP, CBC, LIPID ####[place] [address] [place] [id number] [facility] Platelet mean volume (Bld) [Entitic vol] 9.3 fL Normal 6.6-10.1 [facility] Comment on above: Performed By: #### B MP, CBC, LIPID ####[address] Platelets (Bld) [#/Vol] 168 10*3/uL Normal 150-450 [facility] Comment on above: Performed By: #### B MP, CBC, LIPID ####[address] RBC (Bld) [#/Vol] 3.29 10*6/uL Low 3.90-5.60 [facility] Comment on above: Performed By: #### B MP, CBC, LIPID ####[place] [id number] [facility] WBC (Bld) [#/Vol] 8.6 10*3/uL Normal 4.1-10.5 [facility] Comment on above: Performed By: #### B MP, CBC, LIPID ####[address] Creatinine [Mass/volume] in Serum or PlasmaOrdered By: Sushant Cordon on 05-02-2023 Creatinine [Mass/Vol] 0.86 mg/dL 0.70-1.30 [facility] Eosinophils Auto (Bld) [#/Vo l]Ordered By: Sushant Cordon on 05-02-2023 Eosinophils (Bld) [#/Vol] 0.1 10*3/uL 0.0-0.45 [facility] Eosinophils/100 WBC Auto (Bl d)Ordered By: Sushant Cordon on 05-02-2023 Eosinophils/100 WBC (Bld) 0.8 % . [facility] Erythrocyte distribution wid th Auto (RBC) [Ratio]Ordered By: Sushant Cordon on 05-02-2023 Erythrocyte distribution width (RBC) [Ratio] 17.0 % 12.0-14.8 [facility] Glucose Poct Glucometerson 1 Glucose [Mass/Vol] 323 mg/dL Normal [facility] Comment on above: Result Comment: [facility] Glucose Reference Range is dependent on time and content of last meal. Glucose of more than 200 mg/dL in a nonstressed, ambulatory subject supports the diagnosis of Diabetes Mellitus. PERFORMED BY: [address] [place] [id number] PATHOLOGIST PSYCHOLOGIST AIRAM MAST M.D. Performed By: #### G LULS #### Point of Care testing , Commemt1 Normal [facility] Comment on above: Result Comment: Glu2 : WILL NOTIFY DR/RN PERFORMED BY: [address] [place] [address] PATHOLOGIST PSYCHOLOGIST AIRAM MAST M.D. Performed By: #### G LULS ####Point of Care testing, Glucose [Mass/Vol] 427 mg/dL Off scale [facility] Comment on above: Result Comment: [place] om Glucose Reference Range is dependent on time and content of last meal. Glucose of more than 200 mg/dL in a nonstressed, ambulatory subject supports the diagnosis of Diabetes Mellitus. Performed By: #### G LULS ####Point of Care testing, Glucose [Mass/Vol] 376 mg/dL Normal [facility] Comment on above: Result Comment: [place] om Glucose Reference Range is dependent on time and content of last meal. Glucose of more than 200 mg/dL in a nonstressed, ambulatory subject supports the diagnosis of Diabetes Mellitus. PERFORMED BY: [facility] [address] [place] [address] PATHOLOGIST PSYCHOLOGIST AIRAM MAST M.D. Performed By: #### G LULS ####Point of Care testing, Glucose [Mass/Vol] 73 mg/dL Normal [facility] Comment on above: Result Comment: [place] Glucose Reference Range is dependent on time and content of last meal. Glucose of more than 200 mg/dL in a nonstressed, ambulatory subject supports the diagnosis of Diabetes Mellitus. PERFORMED BY: [facility] [address] [place] [address] PATHOLOGIST PSYCHOLOGIST AIRAM MAST M.D. Performed By: #### G LULS #### Point of Care testing , Glucose [Mass/Vol] 92 mg/dL Normal [facility] Comment on above: Result Comment: [facility] Glucose Reference Range is dependent on time and content of last meal. Glucose of more than 200 mg/dL in a nonstressed, ambulatory subject supports the diagnosis of Diabetes Mellitus. PERFORMED BY: [facility] [address] [place] [address] PATHOLOGIST PSYCHOLOGIST AIRAM MAST M.D. Performed By: #### G LULS ####Point of Care testing, Glucose [Mass/volume] in Ser um or PlasmaOrdered By: Sushant Cordon on 05-02-2023 Glucose [Mass/Vol] 87 mg/dL 70-100 [facility] Comment on above: ADA recommended refe rence rangeRandom Glucose Reference Range is dependent on time and content of last meal. Glucose of more than 200 mg/dL in a nonstressed, ambulatory subject supports the diagnosis of Diabetes Mellitus. Hematocrit Auto (Bld) [Volum e fraction]Ordered By: Sushant Cordon on 05-02-2023 Hematocrit (Bld) [Volume fraction] 27.8 % 38.8-50.0 [facility] Hemoglobin [Mass/volume] in BloodOrdered By: Sushant Cordon on 10-22-2023 Hemoglobin (Bld) [Mass/Vol] 9.3 g/dL 13.0-17.0 [facility] Leukocytes [#/volume] correc robert for nucleated erythrocytes in Blood by Automated counOrdered By: Sushant Cordon on 05-02-2023 WBC corrected for nucl RBC Auto (Bld) [#/Vol] 8.6 10*3/uL 4.1-10.5 [facility] Lipid Panelon 05-02-2023 Cholesterol [Mass/Vol] 97 mg/dL Low 140-200 [facility] Comment on above: Result Comment: Chol less than 200 mg/dl low risk Chol 201-239 mg/dl borderline risk Chol 240 mg/dl and greater high risk Performed By: #### B MP, CBC, LIPID ####[place] [address] [place] [id number] [facility] Cholesterol in HDL [Mass/Vol] 43 mg/dL Normal 23-92 [facility] Comment on above: Result Comment: HDL CHOL ATP-III CLASSIFICATION Cardiovascular Risk HDL > or equal to 60 mg/dL LOW HDL < 40 mg/dL HIGH Performed By: #### B MP, CBC, LIPID ####[place] [address] [place] [address] [facility] Cholesterol.total/Cho lesterol in HDL [Mass ratio] 2.3 {ratio} Normal <5.0 [facility] Comment on above: Result Comment: PERF ORMED BY: [facility] [address] [place] [id number] PATHOLOGIST PSYCHOLOGIST AIRAM MAST M.D. Performed By: #### B MP, CBC, LIPID ####[place] [address] [place] [address] [facility] LDL Cholesterol,Calculate d 43 mg/dL Normal 0-100 [facility] Comment on above: Result Comment: LDL ATP III CLASSIFICATION LDL less than 100 mg/dL Optimal LDL 100-129 mg/dL Near or above optimal LDL 130-159 mg/dL Borderline high LDL 160-189 mg/dL High LDL greater than 189 mg/dL Very high Performed By: #### B MP, CBC, LIPID ####[place] [address] [place] [id number] [place] Triglyceride w/Reflex 53 mg/dL Normal 0-149 [facility] Comment on above: Result Comment: TRIG ATP III CLASSIFICATION TRIG less than 150 mg/dL Normal TRIG 150-199 mg/dL Borderline high TRIG 200-500 mg/dL High TRIG greater than 500 mg/dL Very high Standard traceable to the Center for Disease Conrtrol and Prevention (CDC) test method. Performed By: #### B MP, CBC, LIPID ####[facility] [id number] VLDL CHOLESTEROL 10 mg/dL Normal [facility] Comment on above: Performed By: #### B MP, CBC, LIPID ####[facility] [id number] [address] Lymphocytes Auto (Bld) [#/Vo l]Ordered By: Sushant Cordon on 05-02-2023 Lymphocytes (Bld) [#/Vol] 1.2 10*3/uL 1.00-4.8 [facility] Lymphocytes/100 WBC Auto (Bl d)Ordered By: Sushant Cordon on 05-02-2023 Lymphocytes/100 WBC (Bld) 13.7 % . [facility] MCH Auto (RBC) [Entitic mass ]Ordered By: Sushant Cordon on 05-02-2023 MCH (RBC) [Entitic mass] 28.3 pg 27.5-35.2 [facility] MCHC Auto (RBC) [Mass/Vol]Or dered By: Sushant Cordon on 05-02-2023 MCHC (RBC) [Mass/Vol] 33.6 g/dL 32.5-35.6 [facility] MCV Auto (RBC) [Entitic vol] Ordered By: Sushant Cordon on 05-02-2023 MCV (RBC) [Entitic vol] 84.2 fL 83.5-101 [facility] Monocytes Auto (Bld) [#/Vol] Ordered By: Sushant Cordon on 05-02-2023 Monocytes (Bld) [#/Vol] 1.2 10*3/uL 0.0-0.8 [facility] Monocytes/100 WBC Auto (Bld) Ordered By: Sushant Cordon on 05-02-2023 Monocytes/100 WBC (Bld) 13.5 % . [facility] Neutrophils Auto (Bld) [#/Vo l]Ordered By: Sushant Cordon on 05-02-2023 Neutrophils (Bld) [#/Vol] 6.2 10*3/uL 1.8-7.7 [facility] Neutrophils/100 WBC Auto (Bl d)Ordered By: Sushant Cordon on 05-02-2023 Neutrophils/100 WBC (Bld) 71.9 % . [facility] No Panel InformationOrdered By: Sushant Cordon on 05-02-2023 Bedside Glucose Comment See comment [facility] Comment on above: Glu2: WILL NOTIFY DR /RN Estimated GFR (CKD-EPI) > 60.0 mL/Min [facility] Pharmacy Creatinine Clearance (Chem 59.22 [facility] Nucleated erythrocytes [Pres ence] in Blood by Automated countOrdered By: Sushant Cordon on 05-02-2023 Nucleated RBC Auto Ql (Bld) 0.0 /100{WBC} 0-0.5 [facility] Platelet mean volume Auto (B ld) [Entitic vol]Ordered By: Sushant Cordon on 05-02-2023 Platelet mean volume (Bld) [Entitic vol] 9.3 fL 6.6-10.1 [facility] Platelets Auto (Bld) [#/Vol] Ordered By: Sushant Cordon on 05-02-2023 Platelets (Bld) [#/Vol] 168 10*3/uL 150-450 [facility] Potassium [Moles/volume] in Serum or PlasmaOrdered By: Sushant Cordon on 05-02-2023 Potassium [Moles/Vol] 4.2 mmol/L 3.5-5.1 [facility] RBC Auto (Bld) [#/Vol]Ordere d By: Sushant Cordon on 05-02-2023 RBC (Bld) [#/Vol] 3.29 10*6/uL 3.90-5.60 [facility] Serum or plasma anion gap de terminationOrdered By: Sushant Cordon on 05-02-2023 Anion gap [Moles/Vol] 8.1 mmol/L 6.0-15.0 [facility] Sodium [Moles/volume] in Ser um or PlasmaOrdered By: Sushant Cordon on 05-02-2023 Sodium [Moles/Vol] 131 mmol/L 136-145 [facility] Urea nitrogen [Mass/volume] in Serum or PlasmaOrdered By: Sushant Cordon on 05-02-2023 Urea nitrogen [Mass/Vol] 21 mg/dL - [facility] WBC Auto (Bld) [#/Vol]Ordere d By: Sushant Cordon on 05-02-2023 WBC (Bld) [#/Vol] 8.6 10*3/uL 4.1-10.5 [facility] Basic Metabolic Panelon 10 Anion gap [Moles/Vol] 8.6 mmol/L Normal 6.0-15.0 [facility] Comment on above: Performed By: #### C BC, BMP, LIPID ####[place] [address] Calcium [Mass/Vol] 8.0 mg/dL Low 8.6-10.3 [facility] Comment on above: Performed By: #### C BC, BMP, LIPID ####[place] [address] [place] [id number] [facility] Chloride [Moles/Vol] 97 mmol/L Low 98-107 [facility] Comment on above: Performed By: #### C BC, BMP, LIPID ####[facility] [place] [address] [facility] CO2 [Moles/Vol] 32.9 mmol/L High 21.0-31.0 [facility] Comment on above: Performed By: #### C BC, BMP, LIPID ####[facility] [place] [id number] [facility] Creatinine [Mass/Vol] 0.77 mg/dL Normal 0.70-1.30 [facility] Comment on above: Performed By: #### C SHARAN WALKER, LIPID ####[place] [address] [place] [id number] [facility] Creatinine Clr Calc Pharmacy 63.00 [facility] Comment on above: Performed By: #### C DENISE BMP, LIPID ####[place] [address] GFR/1.73 sq M.predicted MDRD (S/P/Bld) [Vol rate/Area] mL/min/{1.73_m2} [facility] Comment on above: Performed By: #### C SHARAN WALKER, LIPID ####[place] [address] Glucose [Mass/Vol] 86 mg/dL Normal 70-100 [facility] Comment on above: Result Comment: [place] Glucose Reference Range is dependent on time and content of last meal. Glucose of more than 200 mg/dL in a nonstressed, ambulatory subject supports the diagnosis of Diabetes Mellitus. ADA recommended reference range Performed By: #### C SHARAN WALKER, LIPID ####[address] Potassium [Moles/Vol] 4.5 mmol/L Normal 3.5-5.1 [facility] Comment on above: Performed By: #### C DENISE BMP, LIPID ####[address] Sodium [Moles/Vol] 134 mmol/L Low 136-145 [facility] Comment on above: Performed By: #### C DENISE BMP, LIPID ####[place] [address] [place] [id number] [facility] Urea nitrogen [Mass/Vol] 17 mg/dL Normal 7-25 [facility] Comment on above: Performed By: #### C BC BMP, LIPID ####[place] [id number] [facility] Complete Blood Count Auto Di ffon 05-01-2023 Basophils (Bld) [#/Vol] 0.0 10*3/uL Normal 0.0-0.2 [facility] Comment on above: Result Comment: PERF ORMED BY: [facility] [address] [place] [address] PATHOLOGIST PSYCHOLOGIST AIRAM MAST M.D. Performed By: #### C BC, BMP, LIPID ####[address] Basophils/100 WBC (Bld) 0.3 % Normal . [facility] Comment on above: Performed By: #### C BC, BMP, LIPID ####[address] Eosinophils (Bld) [#/Vol] 0.0 10*3/uL Normal 0.0-0.45 [facility] Comment on above: Performed By: #### C BC, BMP, LIPID ####[address] Eosinophils/100 WBC (Bld) 0.6 % Normal . [facility] Comment on above: Performed By: #### C BC, BMP, LIPID ####[address] Erythrocyte distribution width (RBC) [Ratio] 17.7 % High 12.0-14.8 [facility] Comment on above: Performed By: #### C BC, BMP, LIPID ####[address] Hematocrit (Bld) [Volume fraction] 29.9 % Low 38.8-50.0 [facility] Comment on above: Performed By: #### C BC, BMP, LIPID ####[address] Hemoglobin (Bld) [Mass/Vol] 9.8 g/dL Low 13.0-17.0 [facility] Comment on above: Performed By: #### C BC, BMP, LIPID ####[address] Lymphocytes (Bld) [#/Vol] 1.5 10*3/uL Normal 1.00-4.8 [facility] Comment on above: Performed By: #### C BC, BMP, LIPID ####[address] Lymphocytes/100 WBC (Bld) 16.8 % Normal . [facility] Comment on above: Performed By: #### C BC, BMP, LIPID ####[address] MCH (RBC) [Entitic mass] 27.8 pg Normal 27.5-35.2 [facility] Comment on above: Performed By: #### C BC, BMP, LIPID ####[address] MCV (RBC) [Entitic vol] 84.5 fL Normal 83.5-101 [facility] Comment on above: Performed By: #### C BC, BMP, LIPID ####[address] Mean Corpuscular HGB Conc 32.9 g/dL Normal 32.5-35.6 [facility] Comment on above: Performed By: #### C BC, BMP, LIPID ####[address] Monocytes (Bld) [#/Vol] 1.2 10*3/uL High 0.0-0.8 [facility] Comment on above: Performed By: #### C BC, BMP, LIPID ####[address] Monocytes/100 WBC (Bld) 14.1 % Normal . [facility] Comment on above: Performed By: #### C BC, BMP, LIPID ####[address] Neutrophils (Bld) [#/Vol] 6.0 10*3/uL Normal 1.8-7.7 [facility] Comment on above: Performed By: #### C BC, BMP, LIPID ####[place] [address] [place] [address] [facility] Neutrophils/100 WBC (Bld) 68.2 % Normal . [facility] Comment on above: Performed By: #### C BC, BMP, LIPID ####[facility] [place] [address] [facility] NRBC% 0.1 /100{WBC} Normal 0-0.5 [facility] Comment on above: Performed By: #### C BC, BMP, LIPID ####[place] [address] [place] [address] [facility] Platelet mean volume (Bld) [Entitic vol] 9.5 fL Normal 6.6-10.1 [facility] Comment on above: Performed By: #### C BC, BMP, LIPID ####[place] [address] [place] [address] [facility] Platelets (Bld) [#/Vol] 156 10*3/uL Normal 150-450 [facility] Comment on above: Performed By: #### C BC, BMP, LIPID ####[place] [address] [place] [address] [facility] RBC (Bld) [#/Vol] 3.54 10*6/uL Low 3.90-5.60 [facility] Comment on above: Performed By: #### C BC, BMP, LIPID ####[place] [address] [place] [address] [facility] WBC (Bld) [#/Vol] 8.8 10*3/uL Normal 4.1-10.5 [facility] Comment on above: Performed By: #### C BC, BMP, LIPID ####[address] [address] [facility] Glucose Poct Glucometerson 1 Commemt1 Glu2: Cleaned Meter Normal [facility] Comment on above: Result Comment: PERF ORMED BY: [facility] [address] [place] [address] PATHOLOGIST PSYCHOLOGIST AIRAM MAST M.D. Performed By: #### G LULS #### Point of Care testing , Glucose [Mass/Vol] 340 mg/dL Normal [facility] Comment on above: Result Comment: [facility] om Glucose Reference Range is dependent on time and content of last meal. Glucose of more than 200 mg/dL in a nonstressed, ambulatory subject supports the diagnosis of Diabetes Mellitus. Performed By: #### G LULS #### Point of Care testing , Glucose [Mass/Vol] 194 mg/dL Normal [facility] Comment on above: Result Comment: [place] om Glucose Reference Range is dependent on time and content of last meal. Glucose of more than 200 mg/dL in a nonstressed, ambulatory subject supports the diagnosis of Diabetes Mellitus. PERFORMED BY: [place] [address] PATHOLOGIST PSYCHOLOGIST AIRAM MAST M.D. Performed By: #### G LULS #### Point of Care testing , Commemt1 Glu2: Cleaned Meter [facility] Comment on above: Result Comment: PERF ORMED BY: [place] [address] PATHOLOGIST PSYCHOLOGIST AIRAM MAST M.D. Performed By: #### G LULS ####Point of Care testing, Glucose [Mass/Vol] 131 mg/dL Normal [facility] Comment on above: Result Comment: [place] om Glucose Reference Range is dependent on time and content of last meal. Glucose of more than 200 mg/dL in a nonstressed, ambulatory subject supports the diagnosis of Diabetes Mellitus. Performed By: #### G LULS ####Point of Care testing, Commemt1 Glu2: Cleaned Meter [facility] Comment on above: Result Comment: PERF ORMED BY: [place] [address] PATHOLOGIST PSYCHOLOGIST AIRAM MAST M.D. Performed By: #### G LULS ####Point of Care testing, Glucose [Mass/Vol] 85 mg/dL Normal [facility] Comment on above: Result Comment: [place] om Glucose Reference Range is dependent on time and content of last meal. Glucose of more than 200 mg/dL in a nonstressed, ambulatory subject supports the diagnosis of Diabetes Mellitus. Performed By: #### G LULS ####Point of Care testing, Glucose [Mass/Vol] 295 mg/dL Normal [facility] Comment on above: Result Comment: [facility] Glucose Reference Range is dependent on time and content of last meal. Glucose of more than 200 mg/dL in a nonstressed, ambulatory subject supports the diagnosis of Diabetes Mellitus. PERFORMED BY: [facility] [address] [place] [id number] PATHOLOGIST PSYCHOLOGIST AIRAM MAST M.D. Performed By: #### G RIOS ####Point of Care testing, Lipid Panelon 05-01-2023 Cholesterol [Mass/Vol] 107 mg/dL Low 140-200 [facility] Comment on above: Result Comment: Chol less than 200 mg/dl low risk Chol 201-239 mg/dl borderline risk Chol 240 mg/dl and greater high risk Performed By: #### C BC, BMP, LIPID ####[place] [id number] [facility] Cholesterol in HDL [Mass/Vol] 51 mg/dL Normal 23-92 [facility] Comment on above: Result Comment: HDL CHOL ATP-III CLASSIFICATION Cardiovascular Risk HDL > or equal to 60 mg/dL LOW HDL < 40 mg/dL HIGH Performed By: #### C BC, BMP, LIPID ####[address] [address] [facility] Cholesterol.total/Cho lesterol in HDL [Mass ratio] 2.1 {ratio} Normal <5.0 [facility] Comment on above: Result Comment: PERF ORMED BY: [facility] [address] [place] [address] PATHOLOGIST PSYCHOLOGIST AIRAM MAST M.D. Performed By: #### C BC, BMP, LIPID ####[place] [address] [place] [address] [facility] LDL Cholesterol,Calculate d 50 mg/dL Normal 0-100 [facility] Comment on above: Result Comment: LDL ATP III CLASSIFICATION LDL less than 100 mg/dL Optimal LDL 100-129 mg/dL Near or above optimal LDL 130-159 mg/dL Borderline high LDL 160-189 mg/dL High LDL greater than 189 mg/dL Very high Performed By: #### C BC BMP, LIPID ####[facility] [place] [id number] [facility] Triglyceride w/Reflex 30 mg/dL Normal 0-149 [facility] Comment on above: Result Comment: TRIG ATP III CLASSIFICATION TRIG less than 150 mg/dL Normal TRIG 150-199 mg/dL Borderline high TRIG 200-500 mg/dL High TRIG greater than 500 mg/dL Very high Standard traceable to the Center for Disease Conrtrol and Prevention (CDC) test method. Performed By: #### C DENISE BMP, LIPID ####[place] [address] VLDL CHOLESTEROL 6 mg/dL Normal [facility] Comment on above: Performed By: #### C SHARAN WALKER, LIPID ####[place] [address] Activated partial thrombopla stin time (aPTT) in platelet poor plasma by coagulation aOrdered By: Anat Perez on 04-30-2023 aPTT Coag (PPP) [Time] 30.6 s 25.1-36.5 [facility] Comment on above: A hematocrit value g reater than 55% may lead to inaccurate results in coagulation testing. Patients having hematocrit values >55% require a special collection tube for coagulation studies. Please contact the laboratory at [phone] for redraw instructions. B-Type Natriuretic Peptideon 04-30-2023 Natriuretic peptide B (Bld) [Mass/Vol] 523.0 pg/mL [facility] 5-100 [facility] Comment on above: Result Comment: PERF ORMED BY: [facility] [address] [place] [address] PATHOLOGIST PSYCHOLOGIST AIRAM MAST M.D. Performed By: #### B SR. PAYROLL MANAGER ####[place] [address] [place] [id number] [facility] Natriuretic peptide B (Bld) [Mass/Vol] 630.0 pg/mL High 5-100 [facility] Comment on above: Result Comment: PERF ORMED BY: [facility] [address] [place] [address] PATHOLOGIST PSYCHOLOGIST AIRAM MAST M.D. Performed By: #### B SR. PAYROLL MANAGER, HS TROP, BMP, PTT, PT, CBC ####[place] [id number] [facility] Basic Metabolic Panelon 10-2 -2022 Anion gap [Moles/Vol] 7.9 mmol/L Normal 6.0-15.0 [facility] Comment on above: Performed By: #### B SR. PAYROLL MANAGER, HS TROP, BMP, PTT, PT, CBC ####[place] [address] [place] [id number] [facility] Calcium [Mass/Vol] 8.4 mg/dL Low 8.6-10.3 [facility] Comment on above: Performed By: #### B SR. PAYROLL MANAGER, HS TROP, BMP, PTT, PT, CBC ####[place] [id number] [facility] Chloride [Moles/Vol] 96 mmol/L Low 98-107 [facility] Comment on above: Performed By: #### B SR. PAYROLL MANAGER, HS TROP, BMP, PTT, PT, CBC ####[place] [id number] [facility] CO2 [Moles/Vol] 33.2 mmol/L High 21.0-31.0 [facility] Comment on above: Performed By: #### B SR. PAYROLL MANAGER, HS TROP, BMP, PTT, PT, CBC ####[address] [address] [facility] Creatinine [Mass/Vol] 0.68 mg/dL Low 0.70-1.30 [facility] Comment on above: Performed By: #### B SR. PAYROLL MANAGER, HS TROP, BMP, PTT, PT, CBC ####[address] [address] [facility] Creatinine Clr Calc Pharmacy 57.66 Normal [facility] Comment on above: Result Comment: PERF ORMED BY: [facility] [address] [facility] [address] PATHOLOGIST PSYCHOLOGIST AIRAM MAST M.D. Performed By: #### B SR. PAYROLL MANAGER, HS TROP, BMP, PTT, PT, CBC ####[place] [address] [place] [id number] [facility] GFR/1.73 sq M.predicted MDRD (S/P/Bld) [Vol rate/Area] mL/min/{1.73_m2} Normal [facility] Comment on above: Performed By: #### B SR. PAYROLL MANAGER, HS TROP, BMP, PTT, PT, CBC ####[place] [address] [place] [id number] [facility] Glucose [Mass/Vol] 163 mg/dL High 70-100 [facility] Comment on above: Result Comment: [facility] Glucose Reference Range is dependent on time and content of last meal. Glucose of more than 200 mg/dL in a nonstressed, ambulatory subject supports the diagnosis of Diabetes Mellitus. ADA recommended reference range Performed By: #### B SR. PAYROLL MANAGER, HS TROP, BMP, PTT, PT, CBC ####[facility] [place] [address] [facility] Potassium [Moles/Vol] 4.1 mmol/L Normal 3.5-5.1 [facility] Comment on above: Performed By: #### B SR. PAYROLL MANAGER, HS TROP, BMP, PTT, PT, CBC ####[place] [address] [place] [address] [facility] Sodium [Moles/Vol] 133 mmol/L Low 136-145 [facility] Comment on above: Performed By: #### B SR. PAYROLL MANAGER, HS TROP, BMP, PTT, PT, CBC ####[place] [address] [place] [id number] [place] Urea nitrogen [Mass/Vol] 12 mg/dL Normal 7-25 [facility] Comment on above: Performed By: #### B SR. PAYROLL MANAGER, HS TROP, BMP, PTT, PT, CBC ####[place] [address] [place] [address] [facility] Anion gap [Moles/Vol] 5.4 mmol/L Low 6.0-15.0 [facility] Comment on above: Performed By: #### C BC, BMP ####[facility] [place] [address] [place] Calcium [Mass/Vol] 8.5 mg/dL Low 8.6-10.3 [facility] Comment on above: Performed By: #### C BC, BMP ####[place] [address] [place] [address] [place] Chloride [Moles/Vol] 98 mmol/L Normal 98-107 [facility] Comment on above: Performed By: #### C BC, BMP ####[place] [address] [place] [address] [place] CO2 [Moles/Vol] 35.0 mmol/L High 21.0-31.0 [facility] Comment on above: Performed By: #### C BC, BMP ####[place] [address] [place] [address] [place] Creatinine [Mass/Vol] 0.71 mg/dL Normal 0.70-1.30 [facility] Comment on above: Performed By: #### C BC, BMP ####[place] [address] [place] [address] [place] Creatinine Clr Calc Pharmacy 57.66 Normal [facility] Comment on above: Result Comment: PERF ORMED BY: [facility] [address] [place] [address] PATHOLOGIST PSYCHOLOGIST AIRAM MAST M.D. Performed By: #### C BC, BMP ####[place] [address] [place] [address] [place] GFR/1.73 sq M.predicted MDRD (S/P/Bld) [Vol rate/Area] mL/min/{1.73_m2} [facility] Comment on above: Performed By: #### C BC, BMP ####[facility] [place] [address] [facility] Glucose [Mass/Vol] 72 mg/dL Normal 70-100 [facility] Comment on above: Result Comment: [place] Glucose Reference Range is dependent on time and content of last meal. Glucose of more than 200 mg/dL in a nonstressed, ambulatory subject supports the diagnosis of Diabetes Mellitus. ADA recommended reference range Performed By: #### C BC, BMP ####[place] [address] [place] [address] [facility] Potassium [Moles/Vol] 4.4 mmol/L Normal 3.5-5.1 [facility] Comment on above: Performed By: #### C BC, BMP ####[place] [address] [place] [id number] [facility] Sodium [Moles/Vol] 134 mmol/L Low 136-145 [facility] Comment on above: Performed By: #### C BC, BMP ####[place] [address] [place] [phone] [facility] Urea nitrogen [Mass/Vol] 12 mg/dL Normal 7-25 [facility] Comment on above: Performed By: #### C BC, BMP ####[place] [address] [place] [id number] [facility] Coagulation Profileon 2022 aPTT Coag (Bld) [Time] 29.5 s Normal 25.1-36.5 [facility] Comment on above: Result Comment: A he matocrit value greater than 55% may lead to inaccurate results in coagulation testing. Patients having hematocrit values >55% require a special collection tube for coagulation studies. Please contact the laboratory at [phone] for redraw instructions. PERFORMED BY: [facility] [address] [place] [id number] PATHOLOGIST PSYCHOLOGIST AIRAM MAST M.D. Performed By: #### P P ####[place] [id number] [facility] INR Coag (PPP) [Relative time] 1.2 {INR} Normal [facility] Comment on above: Result Comment: INR Therapeutic Range A) Pre- and Peroperative OAT started two weeks before surgery. NOT HIP SURGERY: 1.5 - 2.5 HIP SURGERY: 2 - 3 B) Primary and secondary prevention of venous THROMBOSIS: 2 - 3 C) Active venous thrombosis, pulmonary embolism and prevention of recurrent venous thrombosis: 2 - 3 D) Prevention of arterial thromboembolism including patients with mechanical heart valves: 3 - 4.5 Performed By: #### P P ####[address] PT Coag (PPP) [Time] 14.8 s High 9.0-12.9 [facility] Comment on above: Result Comment: A he matocrit value greater than 55% may lead to inaccurate results in coagulation testing. Patients having hematocrit values >55% require a special collection tube for coagulation studies. Please contact the laboratory at [phone] for redraw instructions. Performed By: #### P P ####[address] Complete Blood Count Auto Di ffon 04-30-2023 Basophils (Bld) [#/Vol] 0.0 10*3/uL Normal 0.0-0.2 [facility] Comment on above: Result Comment: PERF ORMED BY: [facility] [address] [facility] [place] [address] PATHOLOGIST PSYCHOLOGIST AIRAM MAST M.D. Performed By: #### B SR. PAYROLL MANAGER, HS TROP, BMP, PTT, PT, CBC ####[address] Basophils/100 WBC (Bld) 0.3 % Normal . [facility] Comment on above: Performed By: #### B SR. PAYROLL MANAGER, HS TROP, BMP, PTT, PT, CBC ####[address] Eosinophils (Bld) [#/Vol] 0.0 10*3/uL Normal 0.0-0.45 [facility] Comment on above: Performed By: #### B SR. PAYROLL MANAGER, HS TROP, BMP, PTT, PT, CBC ####[address] Eosinophils/100 WBC (Bld) 0.0 % Normal . [facility] Comment on above: Performed By: #### B SR. PAYROLL MANAGER, HS TROP, BMP, PTT, PT, CBC ####[address] Erythrocyte distribution width (RBC) [Ratio] 17.8 % High 12.0-14.8 [facility] Comment on above: Performed By: #### B SR. PAYROLL MANAGER, HS TROP, BMP, PTT, PT, CBC ####[address] Hematocrit (Bld) [Volume fraction] 35.8 % Low 38.8-50.0 [facility] Comment on above: Performed By: #### B SR. PAYROLL MANAGER, HS TROP, BMP, PTT, PT, CBC ####[address] Hemoglobin (Bld) [Mass/Vol] 11.8 g/dL Low 13.0-17.0 [facility] Comment on above: Performed By: #### B SR. PAYROLL MANAGER, HS TROP, BMP, PTT, PT, CBC ####[address] Lymphocytes (Bld) [#/Vol] 0.6 10*3/uL Low 1.00-4.8 [facility] Comment on above: Performed By: #### B SR. PAYROLL MANAGER, HS TROP, BMP, PTT, PT, CBC ####[address] Lymphocytes/100 WBC (Bld) 5.9 % Normal . [facility] Comment on above: Performed By: #### B SR. PAYROLL MANAGER, HS TROP, BMP, PTT, PT, CBC ####[address] MCH (RBC) [Entitic mass] 27.9 pg Normal 27.5-35.2 [facility] Comment on above: Performed By: #### B SR. PAYROLL MANAGER, HS TROP, BMP, PTT, PT, CBC ####[address] MCV (RBC) [Entitic vol] 84.7 fL Normal 83.5-101 [facility] Comment on above: Performed By: #### B SR. PAYROLL MANAGER, HS TROP, BMP, PTT, PT, CBC ####[address] Mean Corpuscular HGB Conc 32.9 g/dL Normal 32.5-35.6 [facility] Comment on above: Performed By: #### B SR. PAYROLL MANAGER, HS TROP, BMP, PTT, PT, CBC ####[address] Monocytes (Bld) [#/Vol] 1.4 10*3/uL High 0.0-0.8 [facility] Comment on above: Performed By: #### B SR. PAYROLL MANAGER, HS TROP, BMP, PTT, PT, CBC ####[address] Monocytes/100 WBC (Bld) 14.6 % Normal . [facility] Comment on above: Performed By: #### B SR. PAYROLL MANAGER, HS TROP, BMP, PTT, PT, CBC ####[address] Neutrophils (Bld) [#/Vol] 7.4 10*3/uL Normal 1.8-7.7 [facility] Comment on above: Performed By: #### B SR. PAYROLL MANAGER, HS TROP, BMP, PTT, PT, CBC ####[address] Neutrophils/100 WBC (Bld) 79.2 % Normal . [facility] Comment on above: Performed By: #### B SR. PAYROLL MANAGER, HS TROP, BMP, PTT, PT, CBC ####[address] NRBC% 0.1 /100{WBC} Normal 0-0.5 [facility] Comment on above: Performed By: #### B SR. PAYROLL MANAGER, HS TROP, BMP, PTT, PT, CBC ####[address] Platelet mean volume (Bld) [Entitic vol] 9.9 fL Normal 6.6-10.1 [facility] Comment on above: Performed By: #### B SR. PAYROLL MANAGER, HS TROP, BMP, PTT, PT, CBC ####[place] [address] Platelets (Bld) [#/Vol] 194 10*3/uL Normal 150-450 [facility] Comment on above: Performed By: #### B SR. PAYROLL MANAGER, HS TROP, BMP, PTT, PT, CBC ####[address] RBC (Bld) [#/Vol] 4.23 10*6/uL Normal 3.90-5.60 [facility] Comment on above: Performed By: #### B SR. PAYROLL MANAGER, HS TROP, BMP, PTT, PT, CBC ####[place] [address] WBC (Bld) [#/Vol] 9.3 10*3/uL Normal 4.1-10.5 [facility] Comment on above: Performed By: #### B SR. PAYROLL MANAGER, HS TROP, BMP, PTT, PT, CBC ####[address] Basophils (Bld) [#/Vol] 0.0 10*3/uL Normal 0.0-0.2 [facility] Comment on above: Result Comment: PERF ORMED BY: [facility] [address] [place] [address] PATHOLOGIST PSYCHOLOGIST AIRAM MAST M.D. Performed By: #### C BC, BMP ####[place] [address] [place] Basophils/100 WBC (Bld) 0.4 % Normal . [facility] Comment on above: Performed By: #### C BC, BMP ####[place] [address] [place] Eosinophils (Bld) [#/Vol] 0.1 10*3/uL Normal 0.0-0.45 [facility] Comment on above: Performed By: #### C BC, BMP ####[place] [address] [place] Eosinophils/100 WBC (Bld) 0.6 % Normal . [facility] Comment on above: Performed By: #### C DENISE, BMP ####[place] [id number] [facility] Erythrocyte distribution width (RBC) [Ratio] 18.0 % High 12.0-14.8 [facility] Comment on above: Performed By: #### C BC, BMP ####[place] [id number] [facility] Hematocrit (Bld) [Volume fraction] 33.7 % Low 38.8-50.0 [facility] Comment on above: Performed By: #### C DENISE, BMP ####[address] Hemoglobin (Bld) [Mass/Vol] 11.2 g/dL Low 13.0-17.0 [facility] Comment on above: Performed By: #### C DENISE, BMP ####[address] Lymphocytes (Bld) [#/Vol] 2.0 10*3/uL Normal 1.00-4.8 [facility] Comment on above: Performed By: #### C DENISE, BMP ####[place] [id number] [facility] Lymphocytes/100 WBC (Bld) 22.0 % Normal . [facility] Comment on above: Performed By: #### C DENISE, BMP ####[place] [id number] [facility] MCH (RBC) [Entitic mass] 28.1 pg Normal 27.5-35.2 [facility] Comment on above: Performed By: #### C DENISE, BMP ####[place] [id number] [facility] MCV (RBC) [Entitic vol] 84.7 fL Normal 83.5-101 [facility] Comment on above: Performed By: #### C DENISE, BMP ####[place] [id number] [facility] Mean Corpuscular HGB Conc 33.2 g/dL Normal 32.5-35.6 [facility] Comment on above: Performed By: #### C DENISE, BMP ####[place] [address] [place] [address] [facility] Monocytes (Bld) [#/Vol] 1.5 10*3/uL High 0.0-0.8 [facility] Comment on above: Performed By: #### C DENISE, BMP ####[place] [id number] [facility] Monocytes/100 WBC (Bld) 16.4 % Normal . [facility] Comment on above: Performed By: #### C DENISE, BMP ####[place] [address] [place] [address] [facility] Neutrophils (Bld) [#/Vol] 5.4 10*3/uL Normal 1.8-7.7 [facility] Comment on above: Performed By: #### C DENISE, BMP ####[place] [id number] [facility] Neutrophils/100 WBC (Bld) 60.6 % Normal . [facility] Comment on above: Performed By: #### C DENISE, BMP ####[address] [address] [facility] NRBC% 0.1 /100{WBC} Normal 0-0.5 [facility] Comment on above: Performed By: #### C DENISE, BMP ####[place] [id number] [facility] Platelet mean volume (Bld) [Entitic vol] 9.1 fL Normal 6.6-10.1 [facility] Comment on above: Performed By: #### C DENISE, BMP ####[address] [address] [facility] Platelets (Bld) [#/Vol] 173 10*3/uL Normal 150-450 [facility] Comment on above: Performed By: #### C DENISE, BMP ####[address] [address] [facility] RBC (Bld) [#/Vol] 3.98 10*6/uL Normal 3.90-5.60 [facility] Comment on above: Performed By: #### C BC, BMP ####[facility] [id number] [place] [id number] [facility] WBC (Bld) [#/Vol] 9.0 10*3/uL Normal 4.1-10.5 [facility] Comment on above: Performed By: #### C BC, BMP ####[facility] [id number] [place] [id number] [facility] ECG 12 lead ECGon 04-30-2023 ECG 12 lead ECG [facility] [address] [place] [address] [place] [address] Electrocardiograph Report Signed Patient: Ashwini Vickers MR#: [id number] : 1935 Acct:[id number] Age/Sex: 88 / M ADM Date: 04/28/23 Loc: Room: [address] [place] [address] Type: ADM IN Attending Dr: Sushant Cordon DO Ordering Provider: Anat Perez MD Date of Service: 04/30/23 ECG/ECG 12 lead ECG: chest pain Copies to: Test Reason : Blood Pressure : / mmHG Vent. 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 ([id number]) on 05/02/2023 10:47:33 AM Referred By: Electronically Signed By:GEENA VALENTE MD [facility] Transcribed By: MUS Signed By Adrián Valente MD 05/02/[address] [facility] Glucose Poct Glucometerson 1 Commemt1 Glu2: Cleaned Meter Normal [facility] Comment on above: Result Comment: PERF ORMED BY: [facility] [address] [facility] [address] PATHOLOGIST PSYCHOLOGIST AIRAM MAST M.D. Performed By: #### G LULS #### Point of Care testing , Glucose [Mass/Vol] 375 mg/dL Normal [facility] Comment on above: Result Comment: [place] om Glucose Reference Range is dependent on time and content of last meal. Glucose of more than 200 mg/dL in a nonstressed, ambulatory subject supports the diagnosis of Diabetes Mellitus. Performed By: #### G LULS #### Point of Care testing , Glucose [Mass/Vol] 162 mg/dL Normal [facility] Comment on above: Result Comment: [place] om Glucose Reference Range is dependent on time and content of last meal. Glucose of more than 200 mg/dL in a nonstressed, ambulatory subject supports the diagnosis of Diabetes Mellitus. PERFORMED BY: [place] [address] PATHOLOGIST PSYCHOLOGIST AIRAM MAST M.D. Performed By: #### G LULS ####Point of Care testing, Glucose [Mass/Vol] 149 mg/dL [facility] Comment on above: Result Comment: [place] om Glucose Reference Range is dependent on time and content of last meal. Glucose of more than 200 mg/dL in a nonstressed, ambulatory subject supports the diagnosis of Diabetes Mellitus. PERFORMED BY: [address] [place] [address] PATHOLOGIST PSYCHOLOGIST AIRAM MAST M.D. Performed By: #### G LULS ####Point of Care testing, Commemt1 Glu2: Cleaned Meter Normal [facility] Comment on above: Result Comment: PERF ORMED BY: [facility] [address] [facility] [address] PATHOLOGIST PSYCHOLOGIST AIRAM MAST M.D. Performed By: #### G LULS #### Point of Care testing , Glucose [Mass/Vol] 130 mg/dL [facility] Comment on above: Result Comment: [place] om Glucose Reference Range is dependent on time and content of last meal. Glucose of more than 200 mg/dL in a nonstressed, ambulatory subject supports the diagnosis of Diabetes Mellitus. Performed By: #### G LULS #### Point of Care testing , Glucose [Mass/Vol] 118 mg/dL Normal [facility] Comment on above: Result Comment: [place] om Glucose Reference Range is dependent on time and content of last meal. Glucose of more than 200 mg/dL in a nonstressed, ambulatory subject supports the diagnosis of Diabetes Mellitus. PERFORMED BY: [address] [place] [id number] PATHOLOGIST PSYCHOLOGIST AIRAM MAST M.D. Performed By: #### G LULS ####Point of Care testing, Glucose [Mass/Vol] 83 mg/dL Normal [facility] Comment on above: Result Comment: Lester om Glucose Reference Range is dependent on time and content of last meal. Glucose of more than 200 mg/dL in a nonstressed, ambulatory subject supports the diagnosis of Diabetes Mellitus. PERFORMED BY: [address] [place] [place] [address] PATHOLOGIST PSYCHOLOGIST AIRAM MAST M.D. Performed By: #### G LULS #### Point of Care testing , Commemt1 [facility] Comment on above: Result Comment: Glu2 : WILL NOTIFY DR/RN PERFORMED BY: [address] [place] [address] PATHOLOGIST PSYCHOLOGIST AIRAM MAST M.D. Performed By: #### G LULS ####Point of Care testing, Glucose [Mass/Vol] 53 mg/dL Off scale low [facility] Comment on above: Result Comment: [place] om Glucose Reference Range is dependent on time and content of last meal. Glucose of more than 200 mg/dL in a nonstressed, ambulatory subject supports the diagnosis of Diabetes Mellitus. Performed By: #### G LULS ####Point of Care testing, Glucose [Mass/Vol] 75 mg/dL Normal [facility] Comment on above: Result Comment: [place] om Glucose Reference Range is dependent on time and content of last meal. Glucose of more than 200 mg/dL in a nonstressed, ambulatory subject supports the diagnosis of Diabetes Mellitus. PERFORMED BY: [facility] [address] [place] [address] PATHOLOGIST PSYCHOLOGIST AIRAM MAST M.D. Performed By: #### G LULS #### Point of Care testing , Glucose [Mass/Vol] 63 mg/dL Normal [facility] Comment on above: Result Comment: [facility] Glucose Reference Range is dependent on time and content of last meal. Glucose of more than 200 mg/dL in a nonstressed, ambulatory subject supports the diagnosis of Diabetes Mellitus. PERFORMED BY: [facility] [address] [address] [address] PATHOLOGIST PSYCHOLOGIST AIRAM MAST M.D. Performed By: #### G LULS ####Point of Care testing, Glucose [Mass/Vol] 133 mg/dL Normal [facility] Comment on above: Result Comment: [facility] Glucose Reference Range is dependent on time and content of last meal. Glucose of more than 200 mg/dL in a nonstressed, ambulatory subject supports the diagnosis of Diabetes Mellitus. PERFORMED BY: [facility] [address] [address] [address] PATHOLOGIST PSYCHOLOGIST AIRAM MAST M.D. Performed By: #### G LULS ####Point of Care testing, Glucose [Mass/Vol] 68 mg/dL Normal [facility] Comment on above: Result Comment: [facility] Glucose Reference Range is dependent on time and content of last meal. Glucose of more than 200 mg/dL in a nonstressed, ambulatory subject supports the diagnosis of Diabetes Mellitus. PERFORMED BY: [facility] [address] [address] PATHOLOGIST PSYCHOLOGIST AIRAM MAST M.D. Performed By: #### G LULS ####Point of Care testing, INR in Platelet poor plasma by Coagulation assayOrdered By: Anat Perez on 04-30-2023 INR Coag (PPP) [Relative time] 1.3 {INR} [facility] Comment on above: INR Therapeutic Rang e A) Pre- and Peroperative OAT started two weeks before surgery. NOT HIP SURGERY: 1.5 - 2.5 HIP SURGERY: 2 - 3B) Primary and secondary prevention of venous THROMBOSIS: 2 - 3C) Active venous thrombosis, pulmonary embolismand prevention of recurrent venous thrombosis: 2 - 3D) Prevention of arterial thromboembolismincluding patients with mechanical heart valves: 3 - 4.5 Natriuretic peptide B [Mass/ Vol]Ordered By: Anat Perez on 04-30-2023 Natriuretic peptide B (Bld) [Mass/Vol] 523.0 pg/mL 5-100 [facility] Partial Thromboplastin Timeo n 04-30-2023 aPTT Coag (Bld) [Time] 30.6 s Normal 25.1-36.5 [facility] Comment on above: Result Comment: A he matocrit value greater than 55% may lead to inaccurate results in coagulation testing. Patients having hematocrit values >55% require a special collection tube for coagulation studies. Please contact the laboratory at [phone] for redraw instructions. PERFORMED BY: [facility] [address] [place] [id number] PATHOLOGIST PSYCHOLOGIST AIRAM MAST M.D. Performed By: #### B SR. PAYROLL MANAGER, HS TROP, BMP, PTT, PT, CBC ####[place] [address] [place] [id number] [facility] Prothrombin Time INRon 04-30 INR Coag (PPP) [Relative time] 1.3 {INR} Normal [facility] Comment on above: Result Comment: INR Therapeutic Range A) Pre- and Peroperative OAT started two weeks before surgery. NOT HIP SURGERY: 1.5 - 2.5 HIP SURGERY: 2 - 3 B) Primary and secondary prevention of venous THROMBOSIS: 2 - 3 C) Active venous thrombosis, pulmonary embolism and prevention of recurrent venous thrombosis: 2 - 3 D) Prevention of arterial thromboembolism including patients with mechanical heart valves: 3 - 4.5 Performed By: #### B SR. PAYROLL MANAGER, HS TROP, BMP, PTT, PT, CBC ####[facility] [place] [id number] [facility] PT Coag (PPP) [Time] 15.6 s High 9.0-12.9 [facility] Comment on above: Result Comment: A he matocrit value greater than 55% may lead to inaccurate results in coagulation testing. Patients having hematocrit values >55% require a special collection tube for coagulation studies. Please contact the laboratory at [phone] for redraw instructions. Performed By: #### B SR. PAYROLL MANAGER, HS TROP, BMP, PTT, PT, CBC ####[place] [address] [place] [address] [facility] Prothrombin time (PT)Ordered By: Anat Perez on 04-30-2023 PT Coag (PPP) [Time] 15.6 s 9.0-12.9 [facility] Comment on above: A hematocrit value g reater than 55% may lead to inaccurate results in coagulation testing. Patients having hematocrit values >55% require a special collection tube for coagulation studies. Please contact the laboratory at [phone] for redraw instructions. Troponin I High Sensitivityo n 04-30-2023 Troponin I High Sensitivity 53.7 pg/mL Off scale high 0.0-20.0 [facility] Comment on above: Result Comment: Crit ical Result : Called to and read back by: STEVEN BYRD at: 04/30/2023 19:24:20 by:[id number] PERFORMED BY: [address] [place] [address] PATHOLOGIST PSYCHOLOGIST AIRAM MAST M.D. Performed By: #### H S TROP ####[address] [address] [facility] Troponin I High Sensitivity 26.1 pg/mL High 0.0-20.0 [facility] Comment on above: Result Comment: PERF ORMED BY: [facility] [address] [place] [address] PATHOLOGIST PSYCHOLOGIST AIRAM MAST M.D. Performed By: #### H S TROP ####[address] [address] [facility] Troponin I High Sensitivity 24.6 pg/mL High 0.0-20.0 [facility] Comment on above: Result Comment: PERF ORMED BY: [facility] [address] [address] [place] [address] PATHOLOGIST PSYCHOLOGIST AIRAM MAST M.D. Performed By: #### B SR. PAYROLL MANAGER, HS TROP, BMP, PTT, PT, CBC ####[facility] [place] [id number] [facility] Troponin I High Sensitivity 26.8 pg/mL High 0.0-20.0 [facility] Comment on above: Result Comment: PERF ORMED BY: [place] [address] PATHOLOGIST PSYCHOLOGIST AIRAM MAST M.D. Performed By: #### G LULS #### Point of Care testing , Troponin I.cardiac [Mass/vol ume] in Serum or Plasma by Detection limit <= 0.01 ng/Ordered By: Anat Perez on 04-30-2023 Troponin I.cardiac DL <= 0.01 ng/mL [Mass/Vol] 53.7 pg/mL 0.0-20.0 [facility] Comment on above: Critical Result : Ca lled to and read back by: STEVEN BYRD at: 04/30/2023 19:24:20 by:[id number] Type and Screenon 04-30-2023 ABO and Rh group Nom (Bld) Blood group A Rh(D) positive Normal [facility] Comment on above: Result Comment: PERF ORMED BY: [address] [address] PATHOLOGIST PSYCHOLOGIST AIRAM MAST M.D. XR chest 1V portableon 04-30 XR chest 1V portable [facility] Main [address] [address] XRay Report Signed Patient: Ashwini Vickers MR#: [id number] 353 : 1935 Acct:[id number] Age/Sex: 88 / M ADM Date: 04/28/23 Loc: 4N Room: [address] [place] [address] Type: ADM IN Attending Dr: Sushant Cordon DO Copies to: DO Anat Cooper MD Ordering Provider: Anat Perez MD Date of Service: 04/30/23 XR/XR chest 1V portable: chest pain Plain film chest Single view HISTORY: Clearance for hip surgery COMPARISON: 04/28/23 FINDINGS: SUPPORT DEVICES: None POSTSURGICAL CHANGES: None HEART: Within normal limits PULMONARY NIKKI: Within normal limits MEDIASTINUM: Unremarkable LUNGS AND PLEURA: No acute lung process, pleural effusion or pneumothorax identified. BONY STRUCTURES: Intact ADDITIONAL FINDINGS None XR/XR chest 1V portable IMPRESSION: No acute process. Impression dictated by: Sheldon Johnson M.D.04/30/2023 10:16 AM Dictation Location: [place] [address] Transcribed By: [facility] 04/30/23 1016 Dictated By: Sheldon Johnson DO 04/30/23 1010 Signed By: 04/30/23 1016 Normal [facility] XR hip RT min 2V(w/wo pelvis )*on 04-30-2023 XR hip RT min 2V(w/wo pelvis)* [facility] [place] [address] XRay Report Signed Patient: Ashwini Vickers MR#: [id number] 353 : 1935 Acct:[id number] Age/Sex: 88 / M ADM Date: 04/28/23 Loc: Room: [address] [place] [address] Type: ADM IN Attending Dr: Sushant Cordon DO Copies to: MD Sushant Carlos DO Ordering Provider: Ashwini Conrad MD Date of Service: 04/30/23 XR/XR hip RT min 2V(w/wo pelvis)*: RT HIP TFN ([id number]) XR/XR hip RT min 2V(w/wo pelvis)*: Hip Fracture Post op CLINICAL DATA: Right intertrochanteric hip fracture. PORTABLE RIGHT HIP - 20 images COMPARISON: 04/28/2023 Multiple spot films of the right hip were obtained before, during and after placement of a dynamic hip screw with intramedullary kortney. The hardware is in satisfactory alignment. Cumulative Air Kerma in mGy: 5.34 mGy LOW AP PELVIS AND RIGHT HIP - 2 views: COMPARISON: 04/28/2023 AP view of the low pelvis and crosstable lateral view of the right hip were obtained. There is a new dynamic hip screw on the right with short intramedullary kortney. There is one distal interlocking screw. An intratrochanteric hip fracture is again seen. There is no significant displacement. No fracture is noted. There are mild degenerative change at the hips. XR/XR hip RT min 2V(w/wo pelvis)* IMPRESSION: INTERVAL FIXATION OF RIGHT HIP FRACTURE Impression dictated by: Sofia Rosales M.D.04/30/2023 6:32 PM Dictation Location: [place] [address] Transcribed By: [facility] 04/30/231831 Dictated By: Sofia Rosales MD 04/30/231827 Signed By: 04/30/231831 [facility] Basic Metabolic Panelon - Anion gap [Moles/Vol] 8.5 mmol/L Normal 6.0-15.0 [facility] Comment on above: Order Comment: FASTI NG Y Performed By: #### G LULS #### Point of Care testing , Calcium [Mass/Vol] 8.4 mg/dL Low 8.6-10.3 [facility] Comment on above: Order Comment: FASTI NG Y Performed By: #### G LULS #### Point of Care testing , Chloride [Moles/Vol] 100 mmol/L Normal 98-107 [facility] Comment on above: Order Comment: FASTI NG Y Performed By: #### G LULS #### Point of Care testing , CO2 [Moles/Vol] 32.3 mmol/L High 21.0-31.0 [facility] Comment on above: Order Comment: FASTI NG Y Performed By: #### G LULS #### Point of Care testing , Creatinine [Mass/Vol] 0.79 mg/dL Normal 0.70-1.30 [facility] Comment on above: Order Comment: FASTI NG Y Performed By: #### G LULS #### Point of Care testing , Creatinine Clr Calc Pharmacy 57.75 [facility] Comment on above: Order Comment: FASTI NG Y Performed By: #### G LULS #### Point of Care testing , GFR/1.73 sq M.predicted MDRD (S/P/Bld) [Vol rate/Area] mL/min/{1.73_m2} Normal [facility] Comment on above: Order Comment: FASTI NG Y Performed By: #### G LULS #### Point of Care testing , Glucose [Mass/Vol] 106 mg/dL High 70-100 [facility] Comment on above: Order Comment: FASTI NG Y Result Comment: [facility] Glucose Reference Range is dependent on time and content of last meal. Glucose of more than 200 mg/dL in a nonstressed, ambulatory subject supports the diagnosis of Diabetes Mellitus. ADA recommended reference range Performed By: #### G LULS #### Point of Care testing , Potassium [Moles/Vol] 4.8 mmol/L Normal 3.5-5.1 [facility] Comment on above: Order Comment: FASTI NG Y Performed By: #### G LULS #### Point of Care testing , Sodium [Moles/Vol] 136 mmol/L Normal 136-145 [facility] Comment on above: Order Comment: FASTI NG Y Performed By: #### G LULS #### Point of Care testing , Urea nitrogen [Mass/Vol] 15 mg/dL Normal 7-25 [facility] Comment on above: Order Comment: FASTI NG Y Performed By: #### G LULS #### Point of Care testing , Complete Blood Count Auto Di ffon 04-29-2023 Basophils (Bld) [#/Vol] 0.0 10*3/uL Normal 0.0-0.2 [facility] Comment on above: Result Comment: PERF ORMED BY: [facility] [address] [place] [address] PATHOLOGIST PSYCHOLOGIST AIRAM MAST M.D. Performed By: #### G LULS #### Point of Care testing , Basophils/100 WBC (Bld) 0.3 % Normal . [facility] Comment on above: Performed By: #### G LULS #### Point of Care testing , Eosinophils (Bld) [#/Vol] 0.1 10*3/uL Normal 0.0-0.45 [facility] Comment on above: Performed By: #### Aileen NATION #### Point of Care testing , Eosinophils/100 WBC (Bld) 1.3 % Normal . [facility] Comment on above: Performed By: #### G KRISTOPHERLS #### Point of Care testing , Erythrocyte distribution width (RBC) [Ratio] 18.3 % High 12.0-14.8 [facility] Comment on above: Performed By: #### Aileen NATION #### Point of Care testing , Hematocrit (Bld) [Volume fraction] 32.9 % Low 38.8-50.0 [facility] Comment on above: Performed By: #### Aileen SUMMERSLS #### Point of Care testing , Hemoglobin (Bld) [Mass/Vol] 10.9 g/dL Low 13.0-17.0 [facility] Comment on above: Performed By: #### Aileen NATION #### Point of Care testing , Lymphocytes (Bld) [#/Vol] 2.0 10*3/uL Normal 1.00-4.8 [facility] Comment on above: Performed By: #### Aileen NATION #### Point of Care testing , Lymphocytes/100 WBC (Bld) 26.5 % Normal . [facility] Comment on above: Performed By: #### Aileen NATION #### Point of Care testing , MCH (RBC) [Entitic mass] 28.0 pg Normal 27.5-35.2 [facility] Comment on above: Performed By: #### Aileen NATION #### Point of Care testing , MCV (RBC) [Entitic vol] 84.9 fL Normal 83.5-101 [facility] Comment on above: Performed By: #### Aileen NATION #### Point of Care testing , Mean Corpuscular HGB Conc 33.0 g/dL Normal 32.5-35.6 [facility] Comment on above: Performed By: #### Aileen NATION #### Point of Care testing , Monocytes (Bld) [#/Vol] 1.1 10*3/uL High 0.0-0.8 [facility] Comment on above: Performed By: #### G LULS #### Point of Care testing , Monocytes/100 WBC (Bld) 14.9 % Normal . [facility] Comment on above: Performed By: #### G LULS #### Point of Care testing , Neutrophils (Bld) [#/Vol] 4.3 10*3/uL Normal 1.8-7.7 [facility] Comment on above: Performed By: #### G LULS #### Point of Care testing , Neutrophils/100 WBC (Bld) 57.0 % Normal . [facility] Comment on above: Performed By: #### G LULS #### Point of Care testing , NRBC% 0.1 /100{WBC} Normal 0-0.5 [facility] Comment on above: Performed By: #### G LULS #### Point of Care testing , Platelet mean volume (Bld) [Entitic vol] 9.3 fL Normal 6.6-10.1 [facility] Comment on above: Performed By: #### G LULS #### Point of Care testing , Platelets (Bld) [#/Vol] 186 10*3/uL Normal 150-450 [facility] Comment on above: Performed By: #### G LULS #### Point of Care testing , RBC (Bld) [#/Vol] 3.88 10*6/uL Low 3.90-5.60 [facility] Comment on above: Performed By: #### G LULS #### Point of Care testing , WBC (Bld) [#/Vol] 7.5 10*3/uL Normal 4.1-10.5 [facility] Comment on above: Performed By: #### G LULS #### Point of Care testing , ECH echo transthoracicon [facility] echo transthoracic [facility] Main [address] [address] Echocardiogram Signed Patient: Ashwini Vickers MR#: [id number] 353 : 1935 Acct:[id number] Age/Sex: 88 / M ADM Date: 04/28/23 Loc: Room: 9L5428-7 Type: ADM IN Attending Dr: Sushant Cordon DO Ordering Provider: Sushant Cordon DO Date of Service: 04/28/23 ECH/ECH echo transthoracic: pre-op testing. Copies to: DO Adrián Cooper MD Weight: 136 lb Performed By: MARK Hearn BSA: 1.8 m2 BP: 139/70 mmHg HR: 53 Reason For Study: pre-op testing. History: DM, Smoker, Pancreatectomy Interpretation Summary Mild concentric left ventricular hypertrophy. Ejection Fraction = 40-45%. There is trace mitral regurgitation. There is trace tricuspid regurgitation. Procedure/Quality: A two-dimensional transthoracic echocardiogram with color flow and Doppler was performed. The study was technically fair in quality. Left Ventricle: The left ventricular size is normal. Mild concentric left ventricular hypertrophy. Ejection Fraction = 40-45%. No left ventricular thrombus or mass is seen. Left Atrium: The left atrium appears normal in size. The atrial septum appears normal. Right Atrium: The right atrium appears normal in size. Right Ventricle: The right ventricular size, thickness and function are normal. Aortic Valve: The aortic valve is mildly calcified. Mitral Valve: The mitral valve is mildly sclerotic. There is trace mitral regurgitation. Tricuspid Valve: The tricuspid valve is normal. There is trace tricuspid regurgitation. Pulmonic Valve: The pulmonic valve is not well visualized. Arteries: The aortic root is normal size. The aortic arch was visualized and no abnormalities were seen. Pericardium/Pleura: No pericardial effusion seen. There is no pleural effusion. IVC/Hepatic Viens: The inferior vena cava is normal in size, with a normal collapsibility index. Measurements with Normals IVSd: 1.3 cm (0.7-1.1 cm)LVIDd: 5.0 cm (3.7-5.4 cm) LVPWd: 1.2 cm (0.7-1.1 cm)LVIDs: 3.7 cm (2.3-3.6 cm) LA dimension: 3.8 cm (2.3-4.0 cm)Ao root diam: 3.3 cm(2.0-3.6 cm) asc Aorta Diam: 3.3 cm(2.1-3.4cm) Doppler with Normals RVSP(TR): 45.5 mmHg (18-35mmHg) MV E max jon: 64.7 cm/sec(0.8-1.3m/s) MV A max jon: 73.3 cm/sec(0.0-0.0m/s) MV E/A: 0.88 (<1.5) MMode/2D Measurements Calculations RVDd: 2.6 cm FS: 25.8 % Ao root area: LVLd ap4: 8.8 cm TAPSE: 3.0 cm EDV(Teich): 8.7 cm2 EDV(MOD-sp4): RV S Jon: 17.7 cm/sec 115.6 ml 111.0 ml ESV(Teich): LVLs ap4: 8.3 cm 57.2 ml ESV(MOD-sp4): EF(Teich): 50.5 % 57.3 ml EF(MOD-sp4): 48.4 % __ SV(MOD-sp4): 53.7 ml LAV(MOD-sp4): LA A2 area: 20.3 cm2RA Volume: 85.4 ml 35.8 ml LAV(MOD-sp2): LA A4 area: 16.7 cm2 66.9 ml LA length (vol): 5.7 cm LA vol: 50.8 ml LA vol index: 28.4 ml/m2 __ RA Volume Index: 47.7 ml/m2 Doppler Measurements Calculations MV max P.0 mmHg E/E' lat: MR max jon: TV max P.3 370.6 cm/sec 40.0 mmHg E/E' med: MR max P.0 mmHg 10.1 __ TR max jon: 318.2 cm/sec TR max P.5 mmHg RAP systole: 5.0 mmHg Transcribed By: MARISABEL Performed At: 04/29/23 0859 Signed By: Adrián Valente MD 04/29/23 1118 Normal [facility] Ferritinon 04-29-2023 Ferritin [Mass/Vol] 41.5 ng/mL Normal 23.9-336.2 [facility] Comment on above: Order Comment: FASTI NG Y Performed By: #### G LULS #### Point of Care testing , Ferritin [Mass/volume] in Se rum or PlasmaOrdered By: Sushant Cordon on 04-29-2023 Ferritin [Mass/Vol] 41.5 ng/mL 23.9-336.2 [facility] Folate [Mass/volume] in Seru m or PlasmaOrdered By: Sushant Cordon on 04-29-2023 Folate [Mass/Vol] 28.0 ng/mL >5.9 [facility] Comment on above: Folate reference ran ge: >5.9 ng/mlThe WHO technical consultation on folate and vitamin [id number] has determined that folate concentrations lessthan 4 ng/ml are considered deficient. Glucose Poct Glucometerson 1 Glucose [Mass/Vol] 323 mg/dL Normal [facility] Comment on above: Result Comment: [facility] Glucose Reference Range is dependent on time and content of last meal. Glucose of more than 200 mg/dL in a nonstressed, ambulatory subject supports the diagnosis of Diabetes Mellitus. PERFORMED BY: [facility] [address] [place] [address] PATHOLOGIST PSYCHOLOGIST AIRAM MAST M.D. Performed By: #### G LULS ####Point of Care testing, Glucose [Mass/Vol] 238 mg/dL Normal [facility] Comment on above: Result Comment: [facility] Glucose Reference Range is dependent on time and content of last meal. Glucose of more than 200 mg/dL in a nonstressed, ambulatory subject supports the diagnosis of Diabetes Mellitus. PERFORMED BY: [facility] [address] [place] [id number] PATHOLOGIST PSYCHOLOGIST AIRAM MAST M.D. Performed By: #### G LULS #### Point of Care testing , Commemt1 Glu2: Cleaned Meter [facility] Comment on above: Result Comment: PERF ORMED BY: [place] [address] [place] [address] PATHOLOGIST PSYCHOLOGIST AIRAM MAST M.D. Performed By: #### G LULS ####Point of Care testing, Glucose [Mass/Vol] 81 mg/dL [facility] Comment on above: Result Comment: [place] Glucose Reference Range is dependent on time and content of last meal. Glucose of more than 200 mg/dL in a nonstressed, ambulatory subject supports the diagnosis of Diabetes Mellitus. Performed By: #### G LULS ####Point of Care testing, Glucose [Mass/Vol] 141 mg/dL [facility] Comment on above: Result Comment: [place] Glucose Reference Range is dependent on time and content of last meal. Glucose of more than 200 mg/dL in a nonstressed, ambulatory subject supports the diagnosis of Diabetes Mellitus. PERFORMED BY: [address] [place] [address] PATHOLOGIST PSYCHOLOGIST AIRAM MAST M.D. Performed By: #### G LULS #### Point of Care testing , Glucose [Mass/Vol] 87 mg/dL [facility] Comment on above: Result Comment: [place] Glucose Reference Range is dependent on time and content of last meal. Glucose of more than 200 mg/dL in a nonstressed, ambulatory subject supports the diagnosis of Diabetes Mellitus. PERFORMED BY: [address] [place] [address] PATHOLOGIST PSYCHOLOGIST AIRAM MAST M.D. Performed By: #### G LULS ####Point of Care testing, Commemt1 Glu2: Cleaned Meter [facility] Comment on above: Performed By: #### G LULS ####Point of Care testing, Commemt2 WILL NOTIFY DR/RN Normal [facility] Comment on above: Result Comment: PERF ORMED BY: [facility] [address] [place] [id number] PATHOLOGIST PSYCHOLOGIST AIRAM MAST M.D. Performed By: #### G LULS ####Point of Care testing, Glucose [Mass/Vol] 53 mg/dL Off scale [facility] Comment on above: Result Comment: [place] Glucose Reference Range is dependent on time and content of last meal. Glucose of more than 200 mg/dL in a nonstressed, ambulatory subject supports the diagnosis of Diabetes Mellitus. Performed By: #### G LULS ####Point of Care testing, Commemt1 Glu2: Cleaned Meter [facility] Comment on above: Performed By: #### G LULS ####Point of Care testing, Commemt2 WILL NOTIFY /KARIN [facility] Comment on above: Result Comment: PERF ORMED BY: [address] [place] [id number] PATHOLOGIST PSYCHOLOGIST AIRAM MAST M.D. Performed By: #### G LULS ####Point of Care testing, Glucose [Mass/Vol] 47 mg/dL Off scale [facility] Comment on above: Result Comment: Lester om Glucose Reference Range is dependent on time and content of last meal. Glucose of more than 200 mg/dL in a nonstressed, ambulatory subject supports the diagnosis of Diabetes Mellitus. Performed By: #### G LULS ####Point of Care testing, Commemt1 Glu2: Cleaned Meter [facility] Comment on above: Result Comment: PERF ORMED BY: [address] [place] [id number] PATHOLOGIST PSYCHOLOGIST AIRAM MAST M.D. Performed By: #### G LULS ####Point of Care testing, Glucose [Mass/Vol] 58 mg/dL Off scale [facility] Comment on above: Result Comment: Lester om Glucose Reference Range is dependent on time and content of last meal. Glucose of more than 200 mg/dL in a nonstressed, ambulatory subject supports the diagnosis of Diabetes Mellitus. Performed By: #### G LULS ####Point of Care testing, Commemt1 Glu2: Cleaned Meter Normal [facility] Comment on above: Result Comment: PERF ORMED BY: [facility] [address] [place] [address] PATHOLOGIST PSYCHOLOGIST AIRAM MAST M.D. Performed By: #### G LULS ####Point of Care testing, Glucose [Mass/Vol] 59 mg/dL Off scale low [facility] Comment on above: Result Comment: [facility] Glucose Reference Range is dependent on time and content of last meal. Glucose of more than 200 mg/dL in a nonstressed, ambulatory subject supports the diagnosis of Diabetes Mellitus. Performed By: #### G LULS ####Point of Care testing, Iron [Mass/volume] in Serum or PlasmaOrdered By: Sushant Cordon on 04-29-2023 Iron [Mass/Vol] 45 ug/dL 50-212 [facility] Iron and TIBC Profileon 04-11 % Iron Saturation 13.6 % Low 20-50 [facility] Comment on above: Order Comment: FASTI NG Y Performed By: #### G LULS #### Point of Care testing , Iron [Mass/Vol] 45 ug/dL Low 50-212 [facility] Comment on above: Order Comment: FASTI NG Y Performed By: #### G LULS #### Point of Care testing , Total Iron Binding Capacity 330 ug/dL Normal 255-450 [facility] Comment on above: Order Comment: FASTI NG Y Performed By: #### G LULS #### Point of Care testing , Transferrin [Mass/Vol] 236 mg/dL Normal 203-362 [facility] Comment on above: Order Comment: FASTI NG Y Performed By: #### G LULS #### Point of Care testing , Iron binding capacity [Mass/ volume] in Serum or PlasmaOrdered By: Sushant Cordon on 04-29-2023 Iron binding capacity [Mass/Vol] 330 ug/dL 255-450 [facility] Iron saturation [Mass Fracti on] in Serum or PlasmaOrdered By: Sushant Cordon on 04-29-2023 Iron saturation [Mass fraction] 13.6 % 20-50 [facility] Lipid Panelon 04-29-2023 Cholesterol [Mass/Vol] 143 mg/dL Normal 140-200 [facility] Comment on above: Order Comment: FASTI ARSLAN Y Result Comment: Chol less than 200 mg/dl low risk Chol 201-239 mg/dl borderline risk Chol 240 mg/dl and greater high risk Performed By: #### G LULS #### Point of Care testing , Cholesterol in HDL [Mass/Vol] 57 mg/dL Normal 23-92 [facility] Comment on above: Order Comment: FASTI NG Y Result Comment: HDL CHOL ATP-III CLASSIFICATION Cardiovascular Risk HDL > or equal to 60 mg/dL LOW HDL < 40 mg/dL HIGH Performed By: #### G LULS #### Point of Care testing , Cholesterol.total/Cho lesterol in HDL [Mass ratio] 2.5 {ratio} Normal <5.0 [facility] Comment on above: Order Comment: NICHELLE ARSLAN Y Performed By: #### G LULS #### Point of Care testing , LDL Cholesterol,Calculate d 80 mg/dL Normal 0-100 [facility] Comment on above: Order Comment: FASTI NG Y Result Comment: LDL ATP III CLASSIFICATION LDL less than 100 mg/dL Optimal LDL 100-129 mg/dL Near or above optimal LDL 130-159 mg/dL Borderline high LDL 160-189 mg/dL High LDL greater than 189 mg/dL Very high Performed By: #### G LULS #### Point of Care testing , Triglyceride w/Reflex 32 mg/dL Normal 0-149 [facility] Comment on above: Order Comment: FASTI NG Y Result Comment: TRIG ATP III CLASSIFICATION TRIG less than 150 mg/dL Normal TRIG 150-199 mg/dL Borderline high TRIG 200-500 mg/dL High TRIG greater than 500 mg/dL Very high Standard traceable to the Center for Disease Conrtrol and Prevention (CDC) test method. Performed By: #### G LULS #### Point of Care testing , VLDL CHOLESTEROL 6 mg/dL Normal [facility] Comment on above: Order Comment: FASTI NG Y Performed By: #### G LULS #### Point of Care testing , Magnesiumon 04-29-2023 Magnesium [Mass/Vol] 1.9 mg/dL Normal 1.9-2.7 [facility] Comment on above: Order Comment: FASTI NG Y Performed By: #### G LULS #### Point of Care testing , Magnesium [Mass/volume] in S jihan or PlasmaOrdered By: Sushant Cordon on 04-29-2023 Magnesium [Mass/Vol] 1.9 mg/dL 1.9-2.7 [facility] No Panel InformationOrdered By: Sushant Cordon on 04-29-2023 Bedside Glucose #[address]/rn [facility] Transferrin [Mass/volume] in Serum or PlasmaOrdered By: Sushant Cordon on 04-29-2023 Transferrin [Mass/Vol] 236 mg/dL 203-362 [facility] Troponin I High Sensitivityo n 04-29-2023 Troponin I High Sensitivity 32.5 pg/mL High 0.0-20.0 [facility] Comment on above: Result Comment: PERF ORMED BY: [facility] [address] [place] [address] PATHOLOGIST PSYCHOLOGIST AIRAM MAST M.D. Performed By: #### H S TROP ####[facility] [id number] [place] [id number] [facility] Vit. B12/Folate Profileon Cobalamin (Vitamin B12) [Mass/Vol] 626 pg/mL Normal 180-914 [facility] Comment on above: Order Comment: FASTI NG Y Performed By: #### G LULS #### Point of Care testing , Folate 28.0 ng/mL Normal >5.9 [facility] Comment on above: Order Comment: FASTI NG Y Result Comment: Lucretia te reference range: >5.9 ng/ml The WHO technical consultation on folate and vitamin b12 deficiencies has determined that folate concentrations less than 4 ng/ml are considered deficient. PERFORMED BY: [facility] [address] [place] [address] PATHOLOGIST PSYCHOLOGIST AIRAM MAST M.D. Performed By: #### G RIOS #### Point of Care testing , Vitamin B12 ser/plasOrdered By: Sushant Cordon on 04-29-2023 Cobalamin (Vitamin B12) [Mass/Vol] 626 pg/mL 180-914 [facility] A1C with Estimated Average G kirill 04-28-2023 Glucose [Mass/Vol] 309 mg/dL Normal [facility] Comment on above: Result Comment: PERF ORMED BY: [facility] [address] [place] [id number] PATHOLOGIST PSYCHOLOGIST AIRAM MAST M.D. Performed By: #### A 1C [facility] eA ####[place] [address] [place] [address] [facility] HbA1c (Bld) [Mass fraction] 12.4 % High 4.3-5.6 [facility] Comment on above: Result Comment: Incr eased risk for diabetes: 5.7 - 6.4 diabetes: >6.4 glycemic control for adults with diabetes: <7.0 Performed By: #### A 1C [facility] eA ####[place] [address] [place] [address] [facility] ABO/Rh Retypeon 04-28-2023 ABO/RH Recheck Result Positive Normal [facility] Comment on above: Result Comment: PERF ORMED BY: [facility] [address] [place] [address] PATHOLOGIST PSYCHOLOGIST AIRAM MAST M.D. Activated partial thrombopla stin time (aPTT) in platelet poor plasma by coagulation aOrdered By: Vinnie Rivas on 04-28-2023 aPTT Coag (PPP) [Time] 27.8 s 25.1-36.5 [facility] Comment on above: A hematocrit value g reater than 55% may lead to inaccurate results in coagulation testing. Patients having hematocrit values >55% require a special collection tube for coagulation studies. Please contact the laboratory at [phone] for redraw instructions. Alanine aminotransferase [En zymatic activity/volume] in Serum or PlasmaOrdered By: Vinnie Rivas on 04-28-2023 ALT [Catalytic activity/Vol] 34 U/L 7-52 [facility] Albumin [Mass/volume] in Ser um or Plasma by Bromocresol green (BCG) dye binding methoOrdered By: Vinnie Rivas on 04-28-2023 Albumin BCG dye [Mass/Vol] 4.0 g/dL 3.5-5.7 [facility] Alkaline phosphatase [Enzyma tic activity/volume] in Serum or PlasmaOrdered By: Vinnie Rivas on 04-28-2023 ALP [Catalytic activity/Vol] 108 U/L 34-104 [facility] Aspartate aminotransferase [ Enzymatic activity/volume] in Serum or PlasmaOrdered By: Vinnie Rivas on 04-28-2023 AST [Catalytic activity/Vol] 46 U/L 13-39 [facility] Automated urine color determ inationOrdered By: Vinnie Rivas on 04-28-2023 Color (U) Yellow Normal Yellow [facility] Comment on above: Order Comment: Name Collection Type:: Kimble Catheter Performed By: #### U A ####[facility] [place] [address] [facility] B-Type Natriuretic Peptideon 04-28-2023 Natriuretic peptide B (Bld) [Mass/Vol] 665.0 pg/mL High 5-100 [facility] Comment on above: Result Comment: PERF ORMED BY: [facility] [address] [place] [address] PATHOLOGIST PSYCHOLOGIST AIRAM MAST M.D. Performed By: #### P T, CMP, CBC, BNP, HS TROP, PTT ####[facility] [id number] [place] [address] [facility] Basophils Auto (Bld) [#/Vol] Ordered By: Vinnie Rivas on 04-28-2023 Basophils (Bld) [#/Vol] 0.0 10*3/uL 0.0-0.2 [facility] Basophils/100 WBC Auto (Bld) Ordered By: Vinnie Rivas on 04-28-2023 Basophils/100 WBC (Bld) 0.4 % . [facility] Bilirubin Test strip Ql (U)O rdered By: Vinnie Rivas on 04-28-2023 Bilirubin Ql (U) Negative Negative [facility] Bilirubin.total [Mass/volume ] in Serum or PlasmaOrdered By: Vinnie Rivas on 04-28-2023 Bilirubin [Mass/Vol] 0.3 mg/dL 0.3-1.0 [facility] Calcium [Mass/volume] in Ser um or PlasmaOrdered By: Vinnie Rivas on 04-28-2023 Calcium [Mass/Vol] 9.0 mg/dL 8.6-10.3 [facility] Carbon dioxide, total [Moles /volume] in Serum or PlasmaOrdered By: Vinnie Rivas on 04-28-2023 CO2 [Moles/Vol] 30.4 mmol/L 21.0-31.0 [facility] Chloride [Moles/volume] in S jihan or PlasmaOrdered By: Vinnie Rivas on 04-28-2023 Chloride [Moles/Vol] 101 mmol/L 98-107 [facility] Complete Blood Count Auto Di ffon 04-28-2023 Basophils (Bld) [#/Vol] 0.0 10*3/uL Normal 0.0-0.2 [facility] Comment on above: Result Comment: PERF ORMED BY: [facility] [address] [place] [address] PATHOLOGIST PSYCHOLOGIST AIRAM MAST M.D. Performed By: #### P T, CMP, CBC, BNP, HS TROP, PTT ####[address] Basophils/100 WBC (Bld) 0.4 % Normal . [facility] Comment on above: Performed By: #### P T, CMP, CBC, BNP, HS TROP, PTT ####[address] Eosinophils (Bld) [#/Vol] 0.0 10*3/uL Normal 0.0-0.45 [facility] Comment on above: Performed By: #### P T, CMP, CBC, BNP, HS TROP, PTT ####[address] [place] [address] [place] Eosinophils/100 WBC (Bld) 0.5 % Normal . [facility] Comment on above: Performed By: #### P T, CMP, CBC, BNP, HS TROP, PTT ####[address] Erythrocyte distribution width (RBC) [Ratio] 18.0 % High 12.0-14.8 [facility] Comment on above: Performed By: #### P T, CMP, CBC, BNP, HS TROP, PTT ####[address] Hematocrit (Bld) [Volume fraction] 34.8 % Low 38.8-50.0 [facility] Comment on above: Performed By: #### P T, CMP, CBC, BNP, HS TROP, PTT ####[address] Hemoglobin (Bld) [Mass/Vol] 11.5 g/dL Low 13.0-17.0 [facility] Comment on above: Performed By: #### P T, CMP, CBC, BNP, HS TROP, PTT ####[address] Lymphocytes (Bld) [#/Vol] 1.4 10*3/uL Normal 1.00-4.8 [facility] Comment on above: Performed By: #### P T, CMP, CBC, BNP, HS TROP, PTT ####[address] Lymphocytes/100 WBC (Bld) 14.8 % Normal . [facility] Comment on above: Performed By: #### P T, CMP, CBC, BNP, HS TROP, PTT ####[address] MCH (RBC) [Entitic mass] 28.0 pg Normal 27.5-35.2 [facility] Comment on above: Performed By: #### P T, CMP, CBC, BNP, HS TROP, PTT ####[address] [address] [place] MCV (RBC) [Entitic vol] 84.3 fL Normal 83.5-101 [facility] Comment on above: Performed By: #### P T, CMP, CBC, BNP, HS TROP, PTT ####[address] Mean Corpuscular HGB Conc 33.2 g/dL Normal 32.5-35.6 [facility] Comment on above: Performed By: #### P T, CMP, CBC, BNP, HS TROP, PTT ####[address] Monocytes (Bld) [#/Vol] 0.9 10*3/uL High 0.0-0.8 [facility] Comment on above: Performed By: #### P T, CMP, CBC, BNP, HS TROP, PTT ####[address] Monocytes/100 WBC (Bld) 18.61 % Normal 0.00-20.00 [facility] Comment on above: Performed By: #### P T, CMP, CBC, BNP, HS TROP, PTT ####[address] Monocytes/100 WBC (Bld) 9.3 % Normal . [facility] Comment on above: Performed By: #### P T, CMP, CBC, BNP, HS TROP, PTT ####[address] Neutrophils (Bld) [#/Vol] 7.3 10*3/uL Normal 1.8-7.7 [facility] Comment on above: Performed By: #### P T, CMP, CBC, BNP, HS TROP, PTT ####[address] Neutrophils/100 WBC (Bld) 75.0 % Normal . [facility] Comment on above: Performed By: #### P T, CMP, CBC, BNP, HS TROP, PTT ####[place] [address] [place] NRBC% 0.1 /100{WBC} Normal 0-0.5 [facility] Comment on above: Performed By: #### P T, CMP, CBC, BNP, HS TROP, PTT ####[address] Platelet mean volume (Bld) [Entitic vol] 9.3 fL Normal 6.6-10.1 [facility] Comment on above: Performed By: #### P T, CMP, CBC, BNP, HS TROP, PTT ####[address] Platelets (Bld) [#/Vol] 206 10*3/uL Normal 150-450 [facility] Comment on above: Performed By: #### P T, CMP, CBC, BNP, HS TROP, PTT ####[address] RBC (Bld) [#/Vol] 4.12 10*6/uL Normal 3.90-5.60 [facility] Comment on above: Performed By: #### P T, CMP, CBC, BNP, HS TROP, PTT ####[address] WBC (Bld) [#/Vol] 9.7 10*3/uL Normal 4.1-10.5 [facility] Comment on above: Performed By: #### P T, CMP, CBC, BNP, HS TROP, PTT ####[address] Comprehensive Metabolic Pane fabby 04-28-2023 Albumin [Mass/Vol] 4.0 g/dL Normal 3.5-5.7 [facility] Comment on above: Performed By: #### P T, CMP, CBC, BNP, HS TROP, PTT ####[address] Albumin/Globulin [Mass ratio] 1.3 {ratio} Normal [facility] Comment on above: Performed By: #### P T, CMP, CBC, BNP, HS TROP, PTT ####[address] [address] [facility] ALP [Catalytic activity/Vol] 108 U/L High 34-104 [facility] Comment on above: Performed By: #### P T, CMP, CBC, BNP, HS TROP, PTT ####[address] [address] [facility] ALT [Catalytic activity/Vol] 34 U/L Normal 7-52 [facility] Comment on above: Performed By: #### P T, CMP, CBC, BNP, HS TROP, PTT ####[address] [address] [facility] Anion gap [Moles/Vol] 9.5 mmol/L Normal 6.0-15.0 [facility] Comment on above: Performed By: #### P T, CMP, CBC, BNP, HS TROP, PTT ####[place] [id number] [facility] AST [Catalytic activity/Vol] 46 U/L High 13-39 [facility] Comment on above: Performed By: #### P T, CMP, CBC, BNP, HS TROP, PTT ####[place] [id number] [facility] Bilirubin [Mass/Vol] 0.3 mg/dL Normal 0.3-1.0 [facility] Comment on above: Performed By: #### P T, CMP, CBC, BNP, HS TROP, PTT ####[place] [id number] [facility] Calcium [Mass/Vol] 9.0 mg/dL Normal 8.6-10.3 [facility] Comment on above: Performed By: #### P T, CMP, CBC, BNP, HS TROP, PTT ####[place] [id number] [facility] Chloride [Moles/Vol] 101 mmol/L Normal 98-107 [facility] Comment on above: Performed By: #### P T, CMP, CBC, BNP, HS TROP, PTT ####[address] [place] [address] [facility] CO2 [Moles/Vol] 30.4 mmol/L Normal 21.0-31.0 [facility] Comment on above: Performed By: #### P T, CMP, CBC, BNP, HS TROP, PTT ####[place] [address] [place] [address] [facility] Creatinine [Mass/Vol] 0.71 mg/dL Normal 0.70-1.30 [facility] Comment on above: Performed By: #### P T, CMP, CBC, BNP, HS TROP, PTT ####[place] [address] [place] [address] [facility] Creatinine Clr Calc Pharmacy 60.38 [facility] Comment on above: Result Comment: PERF ORMED BY: [facility] [address] [place] [address] PATHOLOGIST PSYCHOLOGIST AIRAM MAST M.D. Performed By: #### P T, CMP, CBC, BNP, HS TROP, PTT ####[place] [id number] [facility] GFR/1.73 sq M.predicted MDRD (S/P/Bld) [Vol rate/Area] mL/min/{1.73_m2} [facility] Comment on above: Performed By: #### P T, CMP, CBC, BNP, HS TROP, PTT ####[place] [address] [place] [address] [facility] Globulin (S) [Mass/Vol] 3.2 g/dL [facility] Comment on above: Performed By: #### P T, CMP, CBC, BNP, HS TROP, PTT ####[place] [id number] [facility] Glucose [Mass/Vol] 124 mg/dL High 70-100 [facility] Comment on above: Result Comment: [place] Glucose Reference Range is dependent on time and content of last meal. Glucose of more than 200 mg/dL in a nonstressed, ambulatory subject supports the diagnosis of Diabetes Mellitus. ADA recommended reference range Performed By: #### P T, CMP, CBC, BNP, HS TROP, PTT ####[facility] [id number] [place] [address] [facility] Potassium [Moles/Vol] 4.9 mmol/L Normal 3.5-5.1 [facility] Comment on above: Performed By: #### P T, CMP, CBC, BNP, HS TROP, PTT ####[place] [address] [place] [address] [facility] Protein [Mass/Vol] 7.2 g/dL Normal 6.4-8.9 [facility] Comment on above: Performed By: #### P T, CMP, CBC, BNP, HS TROP, PTT ####[place] [address] [place] [address] [facility] Sodium [Moles/Vol] 136 mmol/L Normal 136-145 [facility] Comment on above: Performed By: #### P T, CMP, CBC, BNP, HS TROP, PTT ####[place] [address] [place] [id number] [facility] Urea nitrogen [Mass/Vol] 15 mg/dL Normal 7-25 [facility] Comment on above: Performed By: #### P T, CMP, CBC, BNP, HS TROP, PTT ####[place] [address] [place] [id number] [facility] Creatinine [Mass/volume] in Serum or PlasmaOrdered By: Vinnie Rivas on 04-28-2023 Creatinine [Mass/Vol] 0.71 mg/dL 0.70-1.30 [facility] ECG 12 lead ECGon 04-28-2023 ECG 12 lead ECG [facility] [address] [place] [address] [place] [address] Electrocardiograph Report Signed Patient: Ashwini Vickers MR#: [id number] 353 : 1935 Acct:[id number] Age/Sex: 88 / M ADM Date: 04/28/23 Loc: 4 Room: [id number] Type: ADM IN Attending Dr: Sushant Cordon DO Ordering Provider: Vinnie Rivas PA-C Date of Service: 04/28/23 ECG/ECG 12 lead ECG: . Copies to: Test Reason : Blood Pressure : 167/083 mmHG Vent. Rate : 063 BPM Atrial Rate : 063 BPM P-R Int : 192 ms QRS Dur : 084 ms QT Int : 446 ms P-R-T Axes : 041 -04 249 degrees QTc Int : 456 ms Normal sinus rhythm Septal infarct (cited on or before 28-APR-2023) Abnormal ECG When compared with ECG of 28-APR-2023 15:50, (Unconfirmed) Sinus rhythm has replaced Atrial fibrillation Confirmed by Willi Lawrence DO ([id number]) on 04/28/2023 5:36:13 PM Referred By: Electronically Signed By:Willi Lawrence DO Transcribed By: MUS Signed By Willi Lawrence DO [address] [facility] ECG 12 lead ECG [facility] [place] [address] Electrocardiograph Report Signed Patient: Ashwini Vickers MR#: [id number] 353 : 1935 Acct:[id number] Age/Sex: 88 / M ADM Date: 04/28/23 Loc: Room: [address] [place] [address] Type: ADM IN Attending Dr: Sushant Cordon DO Ordering Provider: Vinnie Rivas PA-C Date of Service: 04/28/23 ECG/ECG 12 lead ECG: Fall Copies to: Test Reason : Blood Pressure : 179/082 mmHG Vent. Rate : 058 BPM Atrial Rate : 468 BPM P-R Int : 000 ms QRS Dur : 082 ms QT Int : 460 ms P-R-T Axes : 000 -05 251 degrees QTc Int : 451 ms Atrial fibrillation with slow ventricular response Septal infarct , age undetermined Abnormal ECG When compared with ECG of 28-APR-2023 13:28, Atrial fibrillation has replaced Sinus rhythm Confirmed by Willi Lawrence DO ([id number]) on 04/28/2023 5:36:13 PM Referred By: Electronically Signed By:Willi Lawrence DO Transcribed By: MUS Signed By Willi Lawrence DO [address] [facility] ECG 12 lead ECG [facility] [place] [address] Electrocardiograph Report Signed Patient: Ashwini Vickers MR#: [id number] 353 : 1935 Acct:[id number] Age/Sex: 88 / M ADM Date: 04/28/23 Loc: ER Room: Type: [facility] ER Attending Dr: Ordering Provider: Vinnie Rivas PA-C Date of Service: 04/28/23 ECG/ECG 12 lead ECG: Fall Copies to: Test Reason : Blood Pressure : / mmHG Vent. Rate : 062 BPM Atrial Rate : 062 BPM P-R Int : 092 ms QRS Dur : 078 ms QT Int : 464 ms P-R-T Axes : 006 007 205 degrees QTc Int : 470 ms Poor data quality, interpretation may be adversely affected Sinus rhythm with short [place] with occasional and consecutive premature ventricular complexes Marked ST abnormality, possible inferior subendocardial injury Abnormal ECG No previous ECGs available Confirmed by PAUL WOLFF MD ([id number]) on 04/28/2023 3:57:59 PM Referred By: Electronically Signed By:PAUL WOLFF MD Transcribed By: MUS Signed By Paul Wolff MD 04/28/23 1558 Normal [facility] Eosinophils Auto (Bld) [#/Vo l]Ordered By: Vinnie Rivas on 04-28-2023 Eosinophils (Bld) [#/Vol] 0.0 10*3/uL 0.0-0.45 [facility] Eosinophils/100 WBC Auto (Bl d)Ordered By: Vinnie Rivas on 04-28-2023 Eosinophils/100 WBC (Bld) 0.5 % . [facility] Erythrocyte distribution wid th Auto (RBC) [Ratio]Ordered By: Vinnie Rivas on 04-28-2023 Erythrocyte distribution width (RBC) [Ratio] 18.0 % 12.0-14.8 [facility] Fructosamineon 04-28-2023 Fructosamine 565 umol/L High 0-285 [facility] Comment on above: Result Comment: Publ ished reference interval for apparently healthy subjects between age 20 and 60 is 205 - 285 umol/L and in a poorly controlled diabetic population is 228 - 563 umol/L with a mean of 396 umol/L. Performed at: - [facility] [address] [place], [place] [id number] Twist Maker: Arturo Boles PhD, Phone: [phone] PERFORMED BY: [facility] [address] [place] [address] PATHOLOGIST PSYCHOLOGIST AIRAM MAST M.D. Performed By: #### G LULS #### Point of Care testing , Fructosamine [Moles/volume] in Serum or PlasmaOrdered By: Sushant Cordon on 04-28-2023 Fructosamine [Moles/Vol] 565 umol/L 0-285 [facility] Comment on above: Published reference interval for apparently healthysubjects between age 20 and 60 is 205 - 285 umol/L and in apoorly controlled diabetic population is 228 - 563 umol/Lwith a mean of 396 umol/L.Performed at: - [facility] [id number] Director: Arturo Boles PhD, Phone: [phone] Globulin Calc (S) [Mass/Vol] Ordered By: Vinnie Rivas on 04-28-2023 Globulin (S) [Mass/Vol] 3.2 g/dL [facility] Glucose Glucometer (BldC) [M ass/Vol]Ordered By: Sushant Cordon on 04-28-2023 Glucose [Mass/Vol] 137 mg/dL [facility] Comment on above: Random Glucose Refer ence Range is dependent on time and content of last meal. Glucose of more than 200 mg/dL in a nonstressed, ambulatory subject supports the diagnosis of Diabetes Mellitus. Glucose Poct Glucometerson 1 Glucose [Mass/Vol] 399 mg/dL Normal [facility] Comment on above: Result Comment: Lester om Glucose Reference Range is dependent on time and content of last meal. Glucose of more than 200 mg/dL in a nonstressed, ambulatory subject supports the diagnosis of Diabetes Mellitus. PERFORMED BY: [facility] [address] [place] [address] PATHOLOGIST PSYCHOLOGIST AIRAM MAST M.D. Performed By: #### G LULS ####Point of Care testing, Commemt1 Glu2: Cleaned Meter [facility] Comment on above: Result Comment: PERF ORMED BY: [facility] [address] [id number] PATHOLOGIST PSYCHOLOGIST AIRAM MAST M.D. Performed By: #### G LULS ####Point of Care testing, Glucose [Mass/Vol] 156 mg/dL [facility] Comment on above: Result Comment: Lester om Glucose Reference Range is dependent on time and content of last meal. Glucose of more than 200 mg/dL in a nonstressed, ambulatory subject supports the diagnosis of Diabetes Mellitus. Performed By: #### G LULS ####Point of Care testing, Glucose [Mass/Vol] 137 mg/dL [facility] Comment on above: Result Comment: Lester om Glucose Reference Range is dependent on time and content of last meal. Glucose of more than 200 mg/dL in a nonstressed, ambulatory subject supports the diagnosis of Diabetes Mellitus. PERFORMED BY: [facility] [address] [place] [address] PATHOLOGIST PSYCHOLOGIST AIRAM MAST M.D. Performed By: #### G LULS ####Point of Care testing, Commemt1 Glu2: Cleaned Meter [facility] Comment on above: Performed By: #### G LULS ####Point of Care testing, Commemt2 WILL NOTIFY DR/KARIN [facility] Comment on above: Result Comment: PERF ORMED BY: [facility] [address] [place] [address] PATHOLOGIST PSYCHOLOGIST AIRAM MAST M.D. Performed By: #### G LULS ####Point of Care testing, Glucose [Mass/Vol] 171 mg/dL [facility] Comment on above: Result Comment: Lester om Glucose Reference Range is dependent on time and content of last meal. Glucose of more than 200 mg/dL in a nonstressed, ambulatory subject supports the diagnosis of Diabetes Mellitus. Performed By: #### G LULS ####Point of Care testing, Glucose [Mass/volume] in Ser um or PlasmaOrdered By: Vinnie Rivas on 04-28-2023 Glucose [Mass/Vol] 124 mg/dL 70-100 [facility] Comment on above: ADA recommended refe rence rangeRandom Glucose Reference Range is dependent on time and content of last meal. Glucose of more than 200 mg/dL in a nonstressed, ambulatory subject supports the diagnosis of Diabetes Mellitus. Glucose mean value [Mass/vol ume] in Blood Estimated from glycated hemoglobinOrdered By: Sushant Cordon on 04-28-2023 Average glucose Estimated from glycated hemoglobin (Bld) [Mass/Vol] 309 mg/dL [facility] Hematocrit Auto (Bld) [Volum e fraction]Ordered By: Vinnie Rivas on 04-28-2023 Hematocrit (Bld) [Volume fraction] 34.8 % 38.8-50.0 [facility] Hemoglobin A1c percentageOrd ered By: Sushant Cordon on 04-28-2023 HbA1c (Bld) [Mass fraction] 12.4 % 4.3-5.6 [facility] Comment on above: Increased risk for d iabetes: 5.7 - 6.4diabetes: >6.4glycemic control for adults with diabetes: <7.0 Hemoglobin [Mass/volume] in BloodOrdered By: Vinnie Rivas on 04-28-2023 Hemoglobin (Bld) [Mass/Vol] 11.5 g/dL 13.0-17.0 [facility] INR in Platelet poor plasma by Coagulation assayOrdered By: Vinnie Rivas on 04-28-2023 INR Coag (PPP) [Relative time] 1.0 {INR} [facility] Comment on above: INR Therapeutic Rang e A) Pre- and Peroperative OAT started two weeks before surgery. NOT HIP SURGERY: 1.5 - 2.5 HIP SURGERY: 2 - 3B) Primary and secondary prevention of venous THROMBOSIS: 2 - 3C) Active venous thrombosis, pulmonary embolismand prevention of recurrent venous thrombosis: 2 - 3D) Prevention of arterial thromboembolismincluding patients with mechanical heart valves: 3 - 4.5 Ketones Auto test strip (U) [Mass/Vol]Ordered By: Vinnie Rivas on 04-28-2023 Ketones (U) [Mass/Vol] Negative Negative [facility] Leukocytes [#/volume] correc robert for nucleated erythrocytes in Blood by Automated counOrdered By: Vinnie Rivas on 04-28-2023 WBC corrected for nucl RBC Auto (Bld) [#/Vol] 9.7 10*3/uL 4.1-10.5 [facility] Lymphocytes Auto (Bld) [#/Vo l]Ordered By: Vinnie Rivas on 04-28-2023 Lymphocytes (Bld) [#/Vol] 1.4 10*3/uL 1.00-4.8 [facility] Lymphocytes/100 WBC Auto (Bl d)Ordered By: Vinnie Rivas on 04-28-2023 Lymphocytes/100 WBC (Bld) 14.8 % . [facility] MCH Auto (RBC) [Entitic mass ]Ordered By: Vinnie Rivas on 04-28-2023 MCH (RBC) [Entitic mass] 28.0 pg 27.5-35.2 [facility] MCHC Auto (RBC) [Mass/Vol]Or dered By: Vinnie Rivas on 04-28-2023 MCHC (RBC) [Mass/Vol] 33.2 g/dL 32.5-35.6 [facility] MCV Auto (RBC) [Entitic vol] Ordered By: Vinnie Rivas on 04-28-2023 MCV (RBC) [Entitic vol] 84.3 fL 83.5-101 [facility] Monocyte distribution width [Entitic volume] in Blood by AutomatedOrdered By: Vinnie Rivas on 04-28-2023 Monocyte distribution width Auto (Bld) [Entitic vol] 18.61 % 0.00-20.00 [facility] Monocytes Auto (Bld) [#/Vol] Ordered By: Vinnie Rivas on 04-28-2023 Monocytes (Bld) [#/Vol] 0.9 10*3/uL 0.0-0.8 [facility] Monocytes/100 WBC Auto (Bld) Ordered By: Vinnie Rivas on 04-28-2023 Monocytes/100 WBC (Bld) 9.3 % . [facility] Natriuretic peptide B [Mass/ Vol]Ordered By: Vinnie Rivas on 04-28-2023 Natriuretic peptide B (Bld) [Mass/Vol] 665.0 pg/mL 5-100 [facility] Neutrophils Auto (Bld) [#/Vo l]Ordered By: Vinnie Rivas on 04-28-2023 Neutrophils (Bld) [#/Vol] 7.3 10*3/uL 1.8-7.7 [facility] Neutrophils/100 WBC Auto (Bl d)Ordered By: Vinnie Rivas on 04-28-2023 Neutrophils/100 WBC (Bld) 75.0 % . [facility] Nitrite Test strip Ql (U)Ord ered By: Vinnie Rivas on 04-28-2023 Nitrite Ql (U) Negative Negative [facility] No Panel InformationOrdered By: Vinnie Rivas on 04-28-2023 Estimated GFR (CKD-EPI) > 60.0 mL/Min [facility] Creatinine Clearance (Chem 60.38 [facility] Nucleated erythrocytes [Pres ence] in Blood by Automated countOrdered By: Vinnie Rivas on 04-28-2023 Nucleated RBC Auto Ql (Bld) 0.1 /100{WBC} 0-0.5 [facility] Partial Thromboplastin Timeo n 04-28-2023 aPTT Coag (Bld) [Time] 27.8 s Normal 25.1-36.5 [facility] Comment on above: Result Comment: A he matocrit value greater than 55% may lead to inaccurate results in coagulation testing. Patients having hematocrit values >55% require a special collection tube for coagulation studies. Please contact the laboratory at [phone] for redraw instructions. PERFORMED BY: [facility] [address] [place] [address] PATHOLOGIST PSYCHOLOGIST AIRAM MAST M.D. Performed By: #### P T, CMP, CBC, BNP, HS TROP, PTT ####[facility] [id number] [place] [address] [facility] Platelet mean volume Auto (B ld) [Entitic vol]Ordered By: Vinnie Rivas on 04-28-2023 Platelet mean volume (Bld) [Entitic vol] 9.3 fL 6.6-10.1 [facility] Platelets Auto (Bld) [#/Vol] Ordered By: Vinnie Rivas on 04-28-2023 Platelets (Bld) [#/Vol] 206 10*3/uL 150-450 [facility] Potassium [Moles/volume] in Serum or PlasmaOrdered By: Vinnie Rivas on 04-28-2023 Potassium [Moles/Vol] 4.9 mmol/L 3.5-5.1 [facility] Protein Auto test strip (U) [Mass/Vol]Ordered By: Vinnie Rivas on 04-28-2023 Protein (U) [Mass/Vol] Negative Negative [facility] Protein [Mass/volume] in Ser um or PlasmaOrdered By: Vinnie Rivas on 04-28-2023 Protein [Mass/Vol] 7.2 g/dL 6.4-8.9 [facility] Prothrombin Time INRon 04-28 INR Coag (PPP) [Relative time] 1.0 {INR} Normal [facility] Comment on above: Result Comment: INR Therapeutic Range A) Pre- and Peroperative OAT started two weeks before surgery. NOT HIP SURGERY: 1.5 - 2.5 HIP SURGERY: 2 - 3 B) Primary and secondary prevention of venous THROMBOSIS: 2 - 3 C) Active venous thrombosis, pulmonary embolism and prevention of recurrent venous thrombosis: 2 - 3 D) Prevention of arterial thromboembolism including patients with mechanical heart valves: 3 - 4.5 Performed By: #### P T, CMP, CBC, BNP, HS TROP, PTT ####[facility] [id number] [place] [id number] [facility] PT Coag (PPP) [Time] 11.8 s Normal 9.0-12.9 [facility] Comment on above: Result Comment: A he matocrit value greater than 55% may lead to inaccurate results in coagulation testing. Patients having hematocrit values >55% require a special collection tube for coagulation studies. Please contact the laboratory at [phone] for redraw instructions. Performed By: #### P T, CMP, CBC, BNP, HS TROP, PTT ####[facility] [id number] [place] [address] [facility] Prothrombin time (PT)Ordered By: Vinnie Rivas on 04-28-2023 PT Coag (PPP) [Time] 11.8 s 9.0-12.9 [facility] Comment on above: A hematocrit value g reater than 55% may lead to inaccurate results in coagulation testing. Patients having hematocrit values >55% require a special collection tube for coagulation studies. Please contact the laboratory at [phone] for redraw instructions. RBC Auto (Bld) [#/Vol]Ordere d By: Vinnie Rivas on 04-28-2023 RBC (Bld) [#/Vol] 4.12 10*6/uL 3.90-5.60 [facility] Serum or plasma albumin/glob ulin mass ratioOrdered By: Vinnie Rivas on 04-28-2023 Albumin/Globulin [Mass ratio] 1.3 {ratio} [facility] Serum or plasma anion gap de terminationOrdered By: Vinnie Rivas on 04-28-2023 Anion gap [Moles/Vol] 9.5 mmol/L 6.0-15.0 [facility] Sodium [Moles/volume] in Ser um or PlasmaOrdered By: Vinnie Rivas on 04-28-2023 Sodium [Moles/Vol] 136 mmol/L 136-145 [facility] Specific gravity Auto test s trip (U) [Rel density]Ordered By: Vinnie Rivas on 04-28-2023 Specific gravity (U) [Rel density] 1.009 1.001-1.03 0 [facility] Troponin I High Sensitivityo n 04-28-2023 Troponin I High Sensitivity 38.9 pg/mL High 0.0-20.0 [facility] Comment on above: Result Comment: PERF ORMED BY: [facility] [address] [facility] [address] [address] PATHOLOGIST PSYCHOLOGIST AIRAM MAST M.D. Performed By: #### H S TROP ####[facility] [place] [address] [facility] Troponin I High Sensitivity 38.6 pg/mL High 0.0-20.0 [facility] Comment on above: Result Comment: PERF ORMED BY: [facility] [address] [facility] [address] PATHOLOGIST PSYCHOLOGIST AIRAM MAST M.D. Performed By: #### H S TROP ####[place] [id number] [facility] Troponin I High Sensitivity 38.3 pg/mL High 0.0-20.0 [facility] Comment on above: Result Comment: PERF ORMED BY: [facility] [address] [place] [address] PATHOLOGIST PSYCHOLOGIST AIRAM MAST M.D. Performed By: #### H S TROP ####[place] [id number] [facility] Troponin I High Sensitivity 35.5 pg/mL High 0.0-20.0 [facility] Comment on above: Result Comment: PERF ORMED BY: [facility] [address] [facility] [address] PATHOLOGIST PSYCHOLOGIST AIRAM MAST M.D. Performed By: #### P T, CMP, CBC, BNP, HS TROP, PTT ####[place] [id number] [facility] Troponin I.cardiac [Mass/vol ume] in Serum or Plasma by Detection limit <= 0.01 ng/Ordered By: Vinnie Rivas on 04-28-2023 Troponin I.cardiac DL <= 0.01 ng/mL [Mass/Vol] 38.3 pg/mL 0.0-20.0 [facility] Urea nitrogen [Mass/volume] in Serum or PlasmaOrdered By: Vinnie Rivas on 04-28-2023 Urea nitrogen [Mass/Vol] 15 mg/dL 02-02 [facility] Urinalysison 04-28-2023 Appearance (U) Clear Normal Clear [facility] Comment on above: Order Comment: Name Collection Type:: Kimble Catheter Performed By: #### U A ####[place] [id number] [facility] Bilirubin,Urine Negative Normal Negative [facility] Comment on above: Order Comment: Name Collection Type:: Kimble Catheter Performed By: #### U A ####[address] [address] [facility] Glucose Ql (U) Normal Normal Normal [facility] Comment on above: Order Comment: Name Collection Type:: Kimble Catheter Performed By: #### U A ####[address] [address] [facility] Ketones Ql (U) Negative Normal Negative [facility] Comment on above: Order Comment: Name Collection Type:: Kimble Catheter Performed By: #### U A ####[address] [address] [facility] Leukocyte esterase Test strip Ql (U) Negative Normal Negative [facility] Comment on above: Order Comment: Name Collection Type:: Kimble Catheter Performed By: #### U A ####[address] [address] [facility] Nitrite,Urine Negative Normal Negative [facility] Comment on above: Order Comment: Name Collection Type:: Kimble Catheter Performed By: #### U A ####[address] [address] [facility] Occult Blood,Urine Negative Normal Negative [facility] Comment on above: Order Comment: Name Collection Type:: Kimble Catheter Result Comment: PERF ORMED BY: [facility] [address] [place] [id number] PATHOLOGIST PSYCHOLOGIST AIRAM MAST M.D. Performed By: #### U A ####[address] [address] [facility] Protein,Urine Negative Normal Negative [facility] Comment on above: Order Comment: Name Collection Type:: Kimble Catheter Performed By: #### U A ####[address] [address] [facility] Specificy Caney,Urine 1.009 Normal 1.001-1.03 0 [facility] Comment on above: Order Comment: Name Collection Type:: Kimble Catheter Performed By: #### U A ####[address] [address] [facility] Urobilinogen,Urine Normal Normal Normal [facility] Comment on above: Order Comment: Name Collection Type:: Kimble Catheter Performed By: #### U A ####[place] [address] [address] Urine clarity by refractomet ry automatedOrdered By: Vinnie Rivas on 04-28-2023 Clarity Refractometry automated (U) Clear Clear [facility] Urine glucose measurement by automated test strip (mass/volume)Ordered By: Vinnie Rivas on 04-28-2023 Glucose Auto test strip (U) [Mass/Vol] Normal mg/dL Normal [facility] Urine hemoglobin detection b y automated test stripOrdered By: Vinnie Rivas on 04-28-2023 Hemoglobin Auto test strip Ql (U) Negative Negative [facility] Urine leukocyte esterase det ection by automated test stripOrdered By: Vinnie Rivas on 04-28-2023 Leukocyte esterase Auto test strip Ql (U) Negative Negative [facility] Urine pH measurement by auto mated test stripOrdered By: Vinnie Rivas on 04-28-2023 pH (U) 6.5 [pH] Normal 5.0-9.0 [facility] Comment on above: Order Comment: Name Collection Type:: Kimble Catheter Performed By: #### U A ####[facility] Urobilinogen Auto test strip (U) [Mass/Vol]Ordered By: Vinnie Rivas on 04-28-2023 Urobilinogen (U) [Mass/Vol] Normal mg/dL Normal [facility] WBC Auto (Bld) [#/Vol]Ordere d By: Vinnie Rivas on 04-28-2023 WBC (Bld) [#/Vol] 9.7 10*3/uL 4.1-10.5 [facility] XR femur RT 2V*on 04-28-2023 XR femur RT 2V* [facility] [address] [place] [address] [place] [id number] XRay Report Signed Patient: Ashwini Vickers MR#: [id number] : 1935 Acct:[id number] Age/Sex: 88 / M ADM Date: 04/28/23 Loc: ER Room: Type: [facility] ER Attending Dr: Copies to: Vinnie Rivas PA-C Ordering Provider: Vinnie Rivas PA-C Date of Service: 04/28/23 XR/XR chest 1V portable: Fall ([id number]) XR/XR femur RT 2V*: Fall ([id number]) XR/XR hip RT min 2V(w/wo pelvis)*: Fall Plain film chest Single view HISTORY: Fell injuring right hip. COMPARISON: None FINDINGS: SUPPORT DEVICES: None POSTSURGICAL CHANGES: None HEART: Within normal limits PULMONARY NIKKI: Within normal limits MEDIASTINUM: Unremarkable LUNGS AND PLEURA: No acute lung process, pleural effusion or pneumothorax identified. BONY STRUCTURES: Intact ADDITIONAL FINDINGS None XR/XR chest 1V portable IMPRESSION: No acute process. 2 views right hip with single view pelvis Mildly displaced right intertrochanteric hip fracture. No dislocation. 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 IMPRESSION: Right intertrochanteric hip fracture. 2 views of the right femur No additional fracture. Atherosclerosis. IMPRESSION: No additional fracture. Impression dictated by: Sheldon Johnson M.D.04/28/2023 2:48 PM Dictation Location: [place] [address] Transcribed By: [facility] 04/28/23 1448 Dictated By: Sheldon Johnson DO 04/28/23 1437 Signed By: 04/28/[address] [facility] Coding Summaryon 04-26-2023 Coding Summary HTMLBase 64 GzfdxktrARk0lWw+PGhlYWQ+PE 5GZTWcQ33gwXVahX5aD5HIRDxC UyvoYHNLQDvHPjObyeXwAR7qbZ NjZXJu IC8+TQ4lFOJaEkmzxTLqm3X2lX G2L45eep1bPUadxWD0HWShGyJr cvchq2cpaXa5GPxwZvkdJnIa HUEuuO68OLQ8yC32Zq95rSOgqF Oxe1xvjDa3VjNvAVOuXGO5kXmr GDdjv1ShWOLzI77xaFVov0W5 HYPgtJbgqVYzDsIowAU4pM8bRG ouvqmsj8hncejnSyz4mi52tXAe j5A0oLQ8Y7OknsR5WJHrxHIe EftuvHTHpD9enrjjd2ikxynoSt QjGDMsLOk6YZu6VTLbrAuiFvKb EZ69KUG8GFNsrhKnX0YfINSw aZwiRhX9v0P4Fq8WS9OIFqieX9 VNTUFSWTwvdGQ+CJ45pu99A6Be VlbpQzb9DPKoDEK4fEM9xG5q NNMyPBipi7A3jMB9C8YartEorm 3at1fnJBDiTHycE20vaEYzn9H4 EADfcBG6DAKhnWtfBhIntP05 Oyc+NVJokDofm8MoAsqqt7xsn6 kqrBh1BewuGYWcfoHjjGxrGNN1 s8KrBv3tTDQsoNR7jZY0vJ6m ZkXvXpX3VLbdX441SrBjoQNsNh lgY26zO6GruUN+LIJhVkd8GLTb dHprZO7bM4FfRMKhsauhwHFd kQkcHW5yTTZacclaDFGanV3fJF UiD6x0IrQxSsN0YAvmN1NuYCNy wbbvAi34mC4iLwPsYhY3CYbg B8AccrI4EDUihJMrEZtdYMF1I9 5xe2C0BZSjYSBwAJH3fZL3yM6q bGlnbjogbGVmdDsgdmVydGlj PCyxCVlgE712LDIynBxmSfIbEF luZyBEYXRlOiAgMTAvMTYvMjAy MzwvdGQ+QAYcLZP5sCajRWLg sCJlTFlpDd2hmQetgSwpLD6jGD BqlukgKFSzrM2pEHCwzGOwcJir NP6mIYIhudlvj505QjUmQOW7 AWKxfYSiN9LgcT1eAbVcKYIrFW ZjN6HwgEEoEIokX422MNuqAxG6 TEYrsiKvV1BvUXWqwJlpCiW5 g7M4If7Ii3UvbnskP7GzfTVyYn OtWxxoMTk2Q9RdYuzegKS+PC90 BAQuTI36WAf6JMT6eQdiAByq IZMxA4ZzoE0oJxWwNXHvKHJiPw c+PHRhYmxlIHdpZHRoPScxMDAl PtCgzKswBO5qCi8rLNZgXEAy bVatrTBnEbLhz4txDMMsFYdgVT 5lhJymU9KpiTR1FLEba7n0Hx33 H33rZ1ShaKN+NAAzmTJ4xTO6 wP4tOzZlTgO0SQpnL113GcOlyF JcLtdkv9qtf4xohYk1TkY5FAQv fcTkoOpwBZB2g7NvSy51M83r IHdpZHRoPSIxNSUiIHZhbGlnbj 7ulU6qYb9+GKWukBW0jDK7uO0s SkIzQdW3QXeoP176MvUrwRDa Xuynn5gcy4tluTt4VhZrDBMdmj HipLuvRSM5z8ZoYf20A0LcqFvs b0QpCun8qe49gNRau3Y4wNZ4 T7MlPAWnixxozYVgtCocGM1bVN ChkgexGVToyI4oEAKhQ0j5YuAv LvU4PTjnO1NtuiB8HBEepFDv HBMvnZVXkX7kiyxet9khpyhfJa JwXYVwURr6CUt9PMIuxJfzBmVf JRK1IkA6ZRC8xOStyO4wdIap ylhczR9oDee+VWN2lGHzrSJAGJ 1lOjwvdGQ+FCAnPRF4gRtvIKln TXPluV0pIQYmJ4m4OpLyOmL4 AUnyV7HfoyX5AQAttJNjJOIfwV VNyL4zvyjra5zbxcgwZlYpHNDg LOy3GNc9FTSmvGwdBcDzHTD2 NtG2GQY4xHWufO3rwShhwgxtlL 9wOyc+NdztnVpnWBO6DLh5Y8Fz Itp9EQVhyEeoMB0sbODkGTwe Yy2klGnicQwnXF7fYKMfmkhgd1 34LbGbs2mtWLDrbRJyFBdwRGT8 U48yi5J4JKMuAVBpJPR2bXL2 zX6csRryhtpmyTQriMfoccIbrS cxMPcxYUlcW210MIYxzEkjIhDa CBa5L0MqRue7GMTedXveEL3n tFGvOOekTz4zvTxmxDosNJ9cQK Hyzkqvw105TcLmc9obUIHgaHQt XKqeHRD5H36wk5C4KEEmHVOl SGG7kPG9rE2hiErrnhyfsLTruP prwgEmfWglRXlvGUmsE129ZGXd wGnnEeKrsBt9L6OjKpt4AVKn zHzxVT0evQQeZTeoPp8vwAvmfL dhEV8pAQBjogbct036YqLdr3zs XRMloMEpVCwdXAT2T40po8W8 IQIbQYKbTWQ7lET9cJ1dwMaouh ogbGVmdDsgdmVydGljYWwtYWxp O760BWFnoHttArWahEnodqCb PXamFVt1V0GaHdtbvZC+PC90YW MqWW71zIAzaVUec5vulTs2JjEw VWFaQNB4fVczUTsvv9MzXAGw I00zuNXvm9B2YWQnsYpeeUBmYn XhkSK2bQ1tCMiycxeuk4nifmqx Sbgcc5zooz57oF73J83aRNsk EFHhQASqABWdDVVhsAeqir5myW 9wIi8+XZDnuUZ7nPK3fQ7kYFGm KkH6MGygL401TfBlwLPsNolw r1oct9sefYz3VgY0GTXgdsKeuK uoTTP9f4VsYz56G78bUGqlSXIp KKNwCPSyVYPqzYzefj6biY1t Ii8+YLMifTH5cRL9eA2rIpAnNm B7LYjvF478PrRrbGYuZkmgN78f S9KduBC+MEIoEhs1MXXbhObi LV9tpYHuPBxeMm6hHVJ3EiVbWl SpVYvxC1NzRMQrrzlnblpwmBO6 FFIlVOHnoW79Qr1ajCvxBJIn yDRLhN7crqwis3ybjsfaWxCmUL SgRNu9ULb2ZOLlmKqwBzRlESE2 IoE6EEF5bKCipH9zdVfzkidj xS4iQ4JgGDZgqjxjXd04dA5mXv GlThG2LApiVjn+W7MVZk1PWWIO XR1DXTukVyereCM+PHRkIHN0 uMigUNhzLUWnnJ5vMHYeO8y6Zi GxCxX2XKdeZ4EkDATgxasuGg96 qV9oYpYbQgJ3RUllA5MsgnO9 BLYosVRoDEmjTZC7A63sp9K4NJ NxSZNgGTB3cPK9uS4azJpxqkxj bGVmdDsgdmVydGljYWwtYWxp X387ZGIvwKoxVzI8AyJyNlN2Rm w3H6IgVqo2UAWenOyzXX8ciJIf GYarWk0byRysaInzWL0nRADv slymNGIxmX4cKUUjlGQgpRvdSX 1rPOHogwiql473JpJaWEO0NUNt cKRxO9YxuB8wLqKnDTRfWFCw Y7PqiVMfJDxlN468ITrmVsK8ZF XelzKnQ7NiPPLkxEbiUqT6j8O0 Vi77JpXCGBIuolznpMU+PHRk FMU2cIvkWIuxDDIvbK3hPZEbA2 r2OmQpJbK2HTcaW6MzECPufjoh Js35rA8qXqIqPqI8KLqaS2Pg luG3JUTrrKUsFZvvIXM0G23wa0 C6VYQsROGpGCW7bMQ5sX4saHah bjogbGVmdDsgdmVydGljYWwt RHrnA971HXYqhFjvRj6JYAX4D4 OtXrb4RIFqfZnwTK6hoRQxITnx If8kxCmcfSjmYF5rTIQrohuw MRHuwD9nNUHyaMYsaDvvTN1iBJ Zcavyyw747LeXnUBK5UASpmIFh P5AjaG4mVpIhTAUkYQKaC3Xh aYNqNNpmY363UGmpHqM1YSLfjv IjN5CqPLFpgLiwMzF6r3V0Ow7U UDwvdGQ+HX52lr95V4WdTvpf Lee7OTQwOSF4eGS3lI8yEVEjQY iyf5O2xIE4K4DqrlSlpy2aj4si PYWoBUdlH63joKVvi9P6WNJl sPR6WCGfxRidEiQhoZ55Wtf+PG JveUapd2WvAbtip5bno6tigBx6 BsUdXJTozmEfsPsuWBT8b2Ue Wd49Q77aEAdkEUCiHMEfTPCmJU XkfPukgt6lsC3dGh8+PGNvbCB3 uJD2fP6tRdXvHzL0HYsmL985 QlSvuQRaQzhke7kfk1lrsLm5Ja FdVCXffdNnmBatKHL4s0QfKb45 L4PcyPbng4NkEny8lc75nCZj s4M1sXL9N3GcSLFnxculkKYygW ysNK1qPBDhtaydDZTrgT2uQIWu Z4b9JoCfJiS7HAkbO4LskrK6 MTEomMAbHVFbfCQKeC1wauomz0 uyuefoTqCmBRZlDPh0YQt8SQNl zVnxGuHtDWU2JoQ2VZK4tQRq wA4fvVmvptcnxF5zAsz+UGh5c2 okvZJdSU8hsYG6ZS51JN99yNRg t3I2jBD5N1VgVVLetokujtni hCE3XKVbPURwqB18Vp9esEvpEl 3dYOPwHOL0RRWskWHzY1LbmE3w YzQvKQFsOEYqY7TsfPCjYAxh V935YUupEpF7NNLqbaKkV0LbGL FncKloMwJ7u5T3Uh8ESO62HM32 TA66kQBzo0S8zUM9C8YyJHIl jgypdemogLK5EYGnYYJyxK30Bt 2gpJsmRl0uGDVlQFK3XXSrqZJt X8DgnD7rVkNvKGDkCRXlU6Pk xYOwSTckB372SUfgVxB1TKCijh UqT7XkGYGcoKdkApS4t0Y1Zi8H Nu79CT48VH03qEQha4N3qEF7 C9BeZGRqqwjlndcqzLV5ZKRzIU VlgO57Gt6wlYddTy3vNBJzVOW2 PVCceOAgN6QezE5iCkCaDQYq JMJuW5PzhSHfEVyeI911GBusRh P1WQBculSjC4AkZUPygYppAuY7 w9Q2Na4RZBcbycs3T8YjWkmt dHI+SO32JTCzAY49rJPmsIZgj7 jgsKz7HyUjMLDhIZU7sLguDJbf t5NpALYxD30ajQVin1S6HGSs bGx (more content not included)... [facility] Consent Formson 04-26-2023 Consent Forms [id number] [facility] BUN/Creat Ratioon 04-23-2023 eGFR Non AA >60 Invalid Interpretation Code [facility] Comment on above: Performed By: #### 1 [id number] #### [facility] (DEFAULT) [address] [place] [id number] eGFR AA >60 Invalid Interpretation Code [facility] Comment on above: Performed By: #### 1 [id number] #### [facility] (DEFAULT) [address] [place] [address] [id number] Creatinine [Mass/Vol] 0.69 mg/dL Low 0.90-1.30 [facility] Comment on above: Performed By: #### 1 [id number] #### [facility] (DEFAULT) [address] [place] [id number] Urea nitrogen [Mass/Vol] 14 mg/dL Normal 8-26 [facility] Comment on above: Performed By: #### 1 [id number] #### [facility] (DEFAULT) [address] [place] [address] 90792 Urea nitrogen/Creatinine [Mass ratio] 20.2 mg/mg High 4.6-16.2 [facility] Comment on above: Performed By: #### 1 [id number] #### [facility] (DEFAULT) [address] [place] [id number] Urogramon 04-23-2023 CT Urogram CLINICAL HISTORY: Hydronephrosis. COMPARISON: None available. TECHNIQUE: Multiple contiguous axial images of the abdomen and pelvis were obtained before and after intravenous administration of 100 mL Omnipaque 350 contrast. Multiplanar reconstructions were acquired at the CT console. All CT scans at this facility use dose modulation, iterative reconstruction, and/or weight based dosing when appropriate to reduce radiation dose to as low as reasonably achievable. FINDINGS: The study is limited secondary to the patient's lack of intra-abdominal fat, moderate to large volume stool and mildly dilated fluid-filled small bowel loops suggestive of an ileus. LUNG BASES: Probable mild scarring and/or atelectasis of the dependent right lung base. LIVER: [No enlargement, atrophy, abnormal density, or significant focal lesion]. BILIARY: [The gallbladder has been removed]. [No abnormal ductal dilatation]. PANCREAS: Poorly delineated. No obvious mass or ductal dilatation. SPLEEN: Absent. ADRENALS: [No mass or enlargement]. KIDNEYS: Moderate left hydronephrosis and dilatation of the left renal pelvis and hydroureter to the pelvic inlet/crossing vessels, without a discrete obstructing mass or ureteral calculus. No right hydronephrosis. A few nonobstructing intrarenal calculi measuring up to approximately 2-3 mm. Central vascular calcifications. A few nonenhancing fluid density cysts, which do not require further imaging follow-up. BOWEL/MESENTERY: [No obvious bowel wall thickening]. AORTA/VASCULAR: Moderately extensive atherosclerotic plaquing. RETROPERITONEUM: [No mass]. LYMPH NODES: [No suspicious lymphadenopathy]. PELVIS: The urinary bladder is moderately distended, but otherwise unremarkable in appearance. Moderate to marked prostatomegaly. Pelvic organs appropriate for patient age. BONES AND SOFT TISSUES: [Nothing acute]. Moderately extensive degenerative changes of the thoracolumbar spine and both hips. IMPRESSION: Limited study by the patient's body habitus, as noted. Moderate left hydronephrosis and hydroureter to the pelvic inlet/crossing vessels, without ureteral or bladder calculi or obvious obstructing masses identified. A few nonobstructing bilateral intrarenal calculi and nonenhancing renal cysts. Other chronic findings, as noted. Final Signed (Electronic Signature): Butch Solorzano MD 04/23/23 3:17 pm Technologist: DARYA MANN [facility] [place] 04-21-2023 Provider Orders [id number] F [facility] [place] 03-16-2023 Provider Orders [id number] [facility] UA RANDOMon 06-05-2022 Bilirubin Ql (U) Negative Normal NEGATIVE [facility] Comment on above: Performed By: #### C MP, LIPID #### [facility] [address] [address] [address] Kylee Bunch Clarity (U) CLEAR Normal CLEAR [facility] Comment on above: Performed By: #### C MP, LIPID #### [facility] [address] [place], [place] [address] Dr. Kylee Bunch Color (U) YELLOW Normal YELLOW [facility] Comment on above: Performed By: #### C MP, LIPID #### [facility] [address] [address] [address] Kylee Bunch Glucose Ql (U) Negative Normal NEGATIVE [facility] Comment on above: Performed By: #### C MP, LIPID #### [facility] [address] [address] [address] Kylee Bunch Hemoglobin Ql (U) TRACE-INTACT Abnormal NEGATIVE [facility] Comment on above: Performed By: #### C MP, LIPID #### [facility] [address] [address] [address] Kylee Bunch Ketones Ql (U) TRACE Abnormal NEGATIVE [facility] Comment on above: Performed By: #### C MP, LIPID #### [facility] [address] [place] [address] Dr. Kylee Bunch LEUKOCYTES Negative Normal NEGATIVE [facility] Comment on above: Performed By: #### C MP, LIPID #### [facility] [address] [address] [address] Kylee Bunch Nitrite Ql (U) Negative Normal NEGATIVE [facility] Comment on above: Performed By: #### C MP, LIPID #### [facility] [address] [place] [address] Dr. Kylee Bunch pH (U) 5.5 [pH] Normal 5-9 [facility] Comment on above: Performed By: #### C MP, LIPID #### [facility] [address] [place] [address] Dr. Kylee Bunch SPEC GRAVITY >=1.030 Abnormal 1.005-<=1. 025 [facility] Comment on above: Performed By: #### C MP, LIPID #### [facility] [address] [place] [address] Dr. Kylee Bunch UA PROTEIN Negative Normal NEGATIVE/ TRACE [facility] Comment on above: Performed By: #### C MP, LIPID #### [facility] [address] [place] [address] Dr. Kylee Bunch Urobilinogen Qn (U) 0.2 {Gemini'U}/dL Normal 0.2 - 1. 0 [facility] Comment on above: Performed By: #### C MP, LIPID #### [facility] [address] [place] [address] Dr. Kylee Bunch CBC AUTO DIFFon 05-14-2022 BASO # 0.0 103/ul Normal 0.0-0.1 [facility] Comment on above: Performed By: #### C MP, LIPID #### [facility] [address] [place] [address] Dr. Kylee Bunch Basophils/100 WBC (Bld) 0.7 % Normal 0.2-2.0 [facility] Comment on above: Performed By: #### C MP, LIPID #### [facility] [address] [place] [address] Dr. Kylee Bunch EO # 0.1 103/ul Normal 0.0-0.7 [facility] Comment on above: Performed By: #### C MP, LIPID #### [facility] [address] [place] [address] Dr. Kylee Bunch Eosinophils/100 WBC (Bld) 2.6 % Normal 0.9-7.0 [facility] Comment on above: Performed By: #### C MP, LIPID #### [facility] [address] [place] [address] Dr. Kylee Bunch Erythrocyte distribution width (RBC) [Ratio] 17.2 % Critically high 11.0-15.0 [facility] Comment on above: Performed By: #### C MP, LIPID #### [facility] [address] [place] [address] Dr. Kylee Bunch Hematocrit (Bld) [Volume fraction] 36.1 % Critically low 42.0-54.0 [facility] Comment on above: Performed By: #### C MP, LIPID #### [facility] [address] [place] [address] Dr. Kylee Bunch Hemoglobin (Bld) [Mass/Vol] 12.1 g/dL Critically low 14.0-18.0 [facility] Comment on above: Performed By: #### C MP, LIPID #### [facility] [address] [place] [address] Dr. Kylee Bunch IG # 0.01 10e3/ul Normal 0.00-0.03 [facility] Comment on above: Performed By: #### C MP, LIPID #### [facility] [address] [address] [address] Kylee Bunch IG % 0.2 % Normal 0.0-0.5 [facility] Comment on above: Performed By: #### C MP, LIPID #### [facility] [address] [place] [address] Dr. Kylee Bunch LYMPH # 1.7 103/ul Normal 1.2-3.8 [facility] Comment on above: Performed By: #### C MP, LIPID #### [facility] [address] [place] [address] Dr. Kylee Bunch Lymphocytes/100 WBC (Bld) 30.9 % Normal 20.5-60.0 [facility] Comment on above: Performed By: #### C MP, LIPID #### [facility] [address] [place] [address] Dr. Kylee Bunch MANUAL DIFF REQ NO Normal [facility] Comment on above: Performed By: #### C MP, LIPID #### [facility] [address] [place] [address] Dr. Kylee Bunch MCH (RBC) [Entitic mass] 27.4 pg Normal 25.9-34.0 [facility] Comment on above: Performed By: #### C MP, LIPID #### [facility] [address] [place] [address] Dr. Kylee Bunch MCHC (RBC) [Mass/Vol] 33.5 g/dL Normal 29.9-35.2 [facility] Comment on above: Performed By: #### C MP, LIPID #### [facility] [address] [place] [address] Dr. Kylee Bunch MCV (RBC) [Entitic vol] 81.9 fL Normal 80.0-94.0 [facility] Comment on above: Performed By: #### C MP, LIPID #### [facility] [address] [address] [address] Klyee Bunch MONO # 0.7 103/ul Normal 0.3-0.8 [facility] Comment on above: Performed By: #### C MP, LIPID #### [facility] [address] [address] [address] Kylee Bunch Monocytes/100 WBC (Bld) 12.9 % Critically high 1.7-12.0 [facility] Comment on above: Performed By: #### C MP, LIPID #### [facility] [address] [address] [address] Kylee Bunch NEUT # 2.9 103/ul Normal 1.4-6.5 [facility] Comment on above: Performed By: #### C MP, LIPID #### [facility] [address] [address] [address] Kylee Bunch Neutrophils/100 WBC (Bld) 52.7 % Normal 43.0-75.0 [facility] Comment on above: Performed By: #### C MP, LIPID #### [facility] [address] [address] [address] Kylee Bunch PLT 213 103/ul Normal 150-450 [facility] Comment on above: Performed By: #### C MP, LIPID #### [facility] [address] [address] [address] Kylee Bunch RBC 4.41 106/ul Critically low 4.70-6.10 [facility] Comment on above: Performed By: #### C MP, LIPID #### [facility] [address] [address] [address] Kylee Bunch WBC 5.4 103/ul Normal 4.0-11.0 [facility] Comment on above: Performed By: #### C MP, LIPID #### [facility] [address] [address] [address] Kylee Bunch LIPID PROFILEon 05-14-2022 CHOL-HDL RATIO NORM SEE BELOW Normal [facility] Comment on above: Result Comment: 3.3 - 4.4 LOW RISK 4.4 - 7.1 AVERAGE RISK 7.1 - 11.0 MODERATE RISK >11.0 HIGH RISK Performed By: #### C MP, LIPID #### [facility] [address] [address] [address] Kylee Bunch Cholesterol [Mass/Vol] 166 mg/dL Normal <=200 [facility] Comment on above: Performed By: #### C MP, LIPID #### [facility] [address] [address] [address] Kylee Bunch Cholesterol in HDL [Mass/Vol] 71 mg/dL Critically high 40-60 [facility] Comment on above: Performed By: #### C MP, LIPID #### [facility] [address] [address] [address] Kylee Bunch Cholesterol in LDL [Mass/Vol] 84.8 mg/dL Normal [facility] Comment on above: Performed By: #### C MP, LIPID #### [facility] [address] [address] [address] Kylee Bunch Cholesterol.total/Cho lesterol in HDL [Mass ratio] 2.3 {ratio} Normal [facility] Comment on above: Performed By: #### C MP, LIPID #### [facility] [address] [address] [address] Kylee Bunch HDL NORMAL > or = 60 mg/dl - LO W CARDIOVASCULAR RISK <40 mg/dl - HIGH CARDIOVASCULAR RISK Normal [facility] Comment on above: Performed By: #### C MP, LIPID #### [facility] [address] [address] [address] Kylee Bunch LDL CALC NORMAL SEE BELOW Normal [facility] Comment on above: Result Comment: <100 mg/dl OPTIMAL 100 - 129 mg/dl NEAR OR ABOVE OPTIMAL 130 - 159 mg/dl BORDERLINE HIGH 160 - 189 mg/dl HIGH >190 mg/dl VERY HIGH Performed By: #### C MP, LIPID #### [facility] [address] [address] [address] Kylee Bunch Triglyceride [Mass/Vol] 51 mg/dL Normal <=150 [facility] Comment on above: Performed By: #### C MP, LIPID #### [facility] [address] [place] [address] Dr. Kylee Bunch VLDL CALC 10.2 mg/dL Normal [facility] Comment on above: Performed By: #### C MP, LIPID #### [facility] [address] [place] [address] Dr. Kylee Bunch MICROALBUMIN, RAND URon 11-0 mALB 3.0 mg/L Normal <=30.0 [facility] Comment on above: Performed By: #### M ALBR #### [facility] [address] [place] [address] Dr. Kylee Bunch PROF 14(COMP METB)on 022 Albumin [Mass/Vol] 3.5 g/dL Normal 3.4-5.0 [facility] Comment on above: Performed By: #### C MP, LIPID #### [facility] [address] [place] [address] Dr. Kylee Bunch Albumin/Globulin [Mass ratio] 1.0 {ratio} Normal [facility] Comment on above: Performed By: #### C MP, LIPID #### [facility] [address] [place] [address] Dr. Kylee Bunch ALP [Catalytic activity/Vol] 97 U/L Normal 46-116 [facility] Comment on above: Performed By: #### C MP, LIPID #### [facility] [address] [place] [address] Dr. Kylee Bunch ALT [Catalytic activity/Vol] 29 U/L Normal 16-63 [facility] Comment on above: Performed By: #### C MP, LIPID #### [facility] [address] [place] [address] Dr. Kylee Bunch Anion gap [Moles/Vol] 6.7 mmol/L Normal [facility] Comment on above: Performed By: #### C MP, LIPID #### [facility] [address] [place] [address] Dr. Kylee Bunch AST [Catalytic activity/Vol] 28 U/L Normal 15-37 [facility] Comment on above: Performed By: #### C MP, LIPID #### [facility] [address] [address] [address] Kylee Bunch Bilirubin [Mass/Vol] 0.4 mg/dL Normal 0.2-1.0 [facility] Comment on above: Performed By: #### C MP, LIPID #### [facility] [address] [place] [address] Dr. Kylee Bunch Calcium [Mass/Vol] 8.9 mg/dL Normal 8.5-10.1 [facility] Comment on above: Performed By: #### C MP, LIPID #### [facility] [address] [place] [address] Dr. Kylee Bunch Chloride [Moles/Vol] 99 mmol/L Normal 98-107 [facility] Comment on above: Performed By: #### C MP, LIPID #### [facility] [address] [place] [address] Dr. Kylee Bunch CO2 [Moles/Vol] 33.4 mmol/L Critically high 21.0-32.0 [facility] Comment on above: Performed By: #### C MP, LIPID #### [facility] [address] [place] [address] Dr. Kylee Bunch Creatinine [Mass/Vol] 0.80 mg/dL Normal 0.70-1.30 [facility] Comment on above: Performed By: #### C MP, LIPID #### [facility] [address] [place] [address] Dr. Kylee Bunch EGFR-AF KENYAN >60 Normal >=60 [facility] Comment on above: Performed By: #### C MP, LIPID #### [facility] [address] [place] [address] Dr. Kylee Bunch EGFR-NON AF KENYAN >60 Normal >=60 [facility] Comment on above: Performed By: #### C MP, LIPID #### [facility] [address] [place] [address] Dr. Kylee Bunch Globulin (S) [Mass/Vol] 3.4 g/dL Normal [facility] Comment on above: Performed By: #### C MP, LIPID #### [facility] [address] [place] [address] Dr. Kylee Bunch Glucose [Mass/Vol] 188 mg/dL Critically high 74-106 [facility] Comment on above: Performed By: #### C MP, LIPID #### [facility] [address] [place] [address] Dr. Kylee Bunch Potassium [Moles/Vol] 4.1 mmol/L Normal 3.5-5.1 [facility] Comment on above: Performed By: #### C MP, LIPID #### [facility] [address] [place] [address] Dr. Kylee Bunch Protein [Mass/Vol] 6.9 g/dL Normal 6.4-8.2 [facility] Comment on above: Performed By: #### C MP, LIPID #### [facility] [address] [place] [address] Dr. Kylee Bunch Sodium [Moles/Vol] 135 mmol/L Critically low 136-145 [facility] Comment on above: Performed By: #### C MP, LIPID #### [facility] [address] [place] [address] Dr. Kylee Bunch Urea nitrogen [Mass/Vol] 15.0 mg/dL Normal 7.0-18.0 [facility] Comment on above: Performed By: #### C MP, LIPID #### [facility] [address] [place] [address] Dr. Kylee Bunch Urea nitrogen/Creatinine [Mass ratio] 18.8 mg/mg Normal [facility] Comment on above: Performed By: #### C MP, LIPID #### [facility] [address] [place] [address] Dr. Kylee Bunch UA RANDOM W/MICROSCOPICon BACTERIA NONE SEEN Normal NONE SEEN [facility] Comment on above: Performed By: #### C MP, LIPID #### [facility] [address] [place] [address] Dr. Kylee Bunch Bilirubin Ql (U) Negative Normal NEGATIVE [facility] Comment on above: Performed By: #### C MP, LIPID #### [facility] [address] [place] [address] Dr. Kylee Bunch CAST NONE SEEN Normal NONE SEEN [facility] Comment on above: Performed By: #### C MP, LIPID #### [facility] [address] [address] [address] Kylee Bunch Clarity (U) CLEAR Normal CLEAR [facility] Comment on above: Performed By: #### C MP, LIPID #### [facility] [address] [address] [address] Kylee Bunch Color (U) LT. YELLOW Normal YELLOW [facility] Comment on above: Performed By: #### C MP, LIPID #### [facility] [address] [address] [address] Kylee Bunch Crystals LM Nom (Urine sed) NONE SEEN Normal NONE SEEN [facility] Comment on above: Performed By: #### C MP, LIPID #### [facility] [address] [place] [address] Dr. Kylee Bunch Epithelial cells LM Ql (Urine sed) FEW Abnormal NONE SEEN /RARE [facility] Comment on above: Performed By: #### C MP, LIPID #### [facility] [address] [place] [address] Dr. Kylee Bunch Glucose Ql (U) Negative Normal NEGATIVE [facility] Comment on above: Performed By: #### C MP, LIPID #### [facility] [address] [address] [address] Kylee Bunch Hemoglobin Ql (U) TRACE-LYSED Abnormal NEGATIVE [facility] Comment on above: Performed By: #### C MP, LIPID #### [facility] [address] [address] [address] Kylee Bunch Ketones Ql (U) Negative Normal NEGATIVE [facility] Comment on above: Performed By: #### C MP, LIPID #### [facility] [address] [address] [address] Kylee Bunch LEUKOCYTES Negative Normal NEGATIVE [facility] Comment on above: Performed By: #### C MP, LIPID #### [facility] [address] [place] [address] Dr. Kylee Bunch MUCOUS NONE SEEN Normal NONE SEEN [facility] Comment on above: Performed By: #### C MP, LIPID #### [facility] [address] [address] [address] Kylee Bunch Nitrite Ql (U) Negative Normal NEGATIVE [facility] Comment on above: Performed By: #### C MP, LIPID #### [facility] [address] [address] [address] Kylee Bunch pH (U) 6.0 [pH] Normal 5-9 [facility] Comment on above: Performed By: #### C MP, LIPID #### [facility] [address] [address] [address] Kylee Bunch RBC 2-5 Abnormal 0-2 [facility] Comment on above: Performed By: #### C MP, LIPID #### [facility] [address] [place] [address] Dr. Kylee Bunch SPEC GRAVITY 1.020 Normal 1.005-<=1. 025 [facility] Comment on above: Performed By: #### C MP, LIPID #### [facility] [address] [address] [address] Kylee Bunch UA PROTEIN Negative Normal NEGATIVE/ TRACE [facility] Comment on above: Performed By: #### C MP, LIPID #### [facility] [address] [place] [address] Dr. Kylee Bunch Urobilinogen Qn (U) 0.2 {Gemini'U}/dL Normal 0.2 - 1. 0 [facility] Comment on above: Performed By: #### C MP, LIPID #### [facility] [address] [place] [address] Dr. Kylee Bunch WBC NONE SEEN Normal NONE SEEN [facility] Comment on above: Performed By: #### C MP, LIPID #### [facility] [address] [place] [address] Dr. Kylee Bunch Basic Metab w/rfx MGon 01-07 (cont.) Normal [facility] Comment on above: Result Comment: Aver age GFR for 70 or more years old: 75 mL/min/1.73sq m Chronic Kidney Disease: <60 mL/min/1.73sq m Kidney failure: <15 mL/min/1.73sq m eGFR calculated using average adult body mass. Additional eGFR calculator available at: http://www.[employer]/multiple_crcl_2012.htm Performed By: #### C DP, MELVIN, BMPX, MG, IPF #### [facility] [address] [place] [id number] Twist Maker: Francisco J Fonseca MD Anion gap [Moles/Vol] 9 mmol/L Normal 9-17 [facility] Comment on above: Performed By: #### C DP, MELVIN, BMPX, MG, IPF #### [facility] [email or web address] [address] [place] [address] Twist Maker: Francisco J Fonseca MD Calcium [Mass/Vol] 7.8 mg/dL Low 8.6-10.4 [facility] Comment on above: Performed By: #### C DP, MELVIN, BMPX, MG, IPF #### [facility] [email or web address] [address] [place] [id number] Twist Maker: Francisco J Fonseca MD Chloride [Moles/Vol] 102 mmol/L Normal 98-107 [facility] Comment on above: Performed By: #### C DP, MELVIN, BMPX, MG, IPF #### [facility] [email or web address] [address] [place] [id number] Twist Maker: Francisco J Fonseca MD CO2 [Moles/Vol] 24 mmol/L Normal 20-31 [facility] Comment on above: Performed By: #### C DP, MELVIN, BMPX, MG, IPF #### [facility] [email or web address] [address] [place] [phone] Twist Maker: Francisco J Fonseca MD Creatinine [Mass/Vol] 0.49 mg/dL Low 0.70-1.20 [facility] Comment on above: Performed By: #### C DP, MELVIN, BMPX, MG, IPF #### [address] [address] Twist Maker: Francisco J Fonseca MD GFR, Amer >60 Normal >60 [facility] Comment on above: Performed By: #### C DP, MELVIN, BMPX, MG, IPF #### [address] [address] Twist Maker: Francisco J Fonseca MD GFR,non Amer >60 Normal >60 [facility] Comment on above: Performed By: #### C DP, MELVIN, BMPX, MG, IPF #### [address] [address] Twist Maker: Francisco J Fonseca MD Glucose [Mass/Vol] 79 mg/dL Normal 70-99 [facility] Comment on above: Performed By: #### C DP, MELVIN, BMPX, MG, IPF #### [address] [address] Twist Maker: Francisco J Fonseca MD Potassium [Moles/Vol] 3.5 mmol/L Low 3.7-5.3 [facility] Comment on above: Performed By: #### C DP, MELVIN, BMPX, MG, IPF #### [address] [id number] Twist Maker: Francisco J Fonseca MD Sodium [Moles/Vol] 135 mmol/L Normal 135-144 [facility] Comment on above: Performed By: #### C DP, MELVIN, BMPX, MG, IPF #### [address] [address] Twist Maker: Francisco J Fonseca MD Urea nitrogen [Mass/Vol] 7 mg/dL Low 8-23 [facility] Comment on above: Performed By: #### C DP, MELVIN, BMPX, MG, IPF #### [facility] [email or web address] [address] [place] [address] Twist Maker: Francisco J Fonseca MD CBC with Diffon 01-07-2022 Abs. Basophil 0.00 k/uL Normal 0.0-0.2 [facility] Comment on above: Performed By: #### C DP #### [address] [address] Twist Maker: Francisco J Fonseca MD Abs.Imm.Granulocyte 0.00 k/uL Normal 0.00-0.30 [facility] Comment on above: Performed By: #### C DP #### [place] [address] Twist Maker: Francisco J Fonseca MD Abs.Neutrophil (Seg) 8.33 k/uL High 1.8-7.7 [facility] Comment on above: Performed By: #### C DP #### [place] [address] Twist Maker: Francisco J Fonseca MD Eosinophils (Bld) [#/Vol] 0.11 10*3/uL Normal 0.0-0.4 [facility] Comment on above: Performed By: #### C DP #### [place] [address] Twist Maker: Francisco J Fonseca MD Lymphocytes (Bld) [#/Vol] 1.22 10*3/uL Normal 1.0-4.8 [facility] Comment on above: Performed By: #### C DP #### [address] [address] Twist Maker: Francisco J Fonseca MD Monocytes (Bld) [#/Vol] 1.44 10*3/uL High 0.1-0.8 [facility] Comment on above: Performed By: #### C DP #### [place] [address] Twist Maker: Francisco J Fonseca MD Neutrophil (Seg) 75 % High 36-66 [facility] Comment on above: Performed By: #### C DP #### [address] [address] Twist Maker: Francisco J Fonseca MD NRBC Automated 0.0 per 100 WBC Normal 0.0 [facility] Comment on above: Performed By: #### C DP #### [address] [address] Twist Maker: Francisco J Fonseca MD WBC (Bld) [#/Vol] 11.1 10*3/uL Normal 3.5-11.3 [facility] Comment on above: Performed By: #### C DP #### [address] [address] Twist Maker: Francisco J Fonseca MD Basophils/100 WBC (Bld) 0 % Normal 0-[address] [facility] [facility] Comment on above: Performed By: #### C DP #### [address] [address] Twist Maker: Francisco J Fonseca MD Eosinophils/100 WBC (Bld) 1 % Normal 1-4 [facility] Comment on above: Performed By: #### C DP #### [address] [address] Twist Maker: Francisco J Fonseca MD Immature granulocytes/100 WBC (Bld) 0 % Normal 0 [facility] Comment on above: Performed By: #### C DP #### [address] [address] Twist Maker: Francisco J Fonseca MD Lymphocytes/100 WBC (Bld) 11 % Low 24-44 [facility] Comment on above: Performed By: #### C DP #### [address] [address] Twist Maker: Francisco J Fonseca MD Monocytes/100 WBC (Bld) 13 % High 1-7 [facility] Comment on above: Performed By: #### C DP #### [address] [address] Twist Maker: Francisco J Fonseca MD Morphology Walter (Bld) [Interp] ANISOCYTOSIS PRESENT Normal [facility] Comment on above: Result Comment: MICR OCYTOSIS PRESENT 1+ TARGET CELLS 1+ ACANTHOCYTES Performed By: #### C DP #### [address] [address] Twist Maker: Francisco J Fonseca MD Erythrocyte distribution width (RBC) [Ratio] 17.3 % High 11.8-14.4 [facility] Comment on above: Performed By: #### C DP #### [address] [address] Twist Maker: Francisco J Fonseca MD Hematocrit (Bld) [Volume fraction] 36.6 % Low 40.7-50.3 [facility] Comment on above: Performed By: #### C DP #### [address] [address] Twist Maker: Francisco J Fonseca MD Hemoglobin (Bld) [Mass/Vol] 13.0 g/dL Normal 13.0-17.0 [facility] Comment on above: Performed By: #### C DP #### [address] [address] Twist Maker: Francisco J Fonseca MD MCH (RBC) [Entitic mass] 26.5 pg Normal 25.2-33.5 [facility] Comment on above: Performed By: #### C DP #### [address] [address] Twist Maker: Francisco J Fonseca MD MCHC (RBC) [Mass/Vol] 35.5 g/dL High 28.4-34.8 [facility] Comment on above: Performed By: #### C DP #### [id number] [place] [address] Twist Maker: Francisco J Fonseca MD MCV (RBC) [Entitic vol] 74.5 fL Low 82.6-102.9 [facility] Comment on above: Performed By: #### C DP #### [address] [address] Twist Maker: Francisco J Fonseca MD Platelet Count See Reflexed IPF Result Normal 138-453 [facility] Comment on above: Performed By: #### C DP #### [address] [address] Twist Maker: Francisco J Fonseca MD RBC (Bld) [#/Vol] 4.91 10*6/uL Normal 4.21-5.77 [facility] Comment on above: Performed By: #### C DP #### [address] [address] Twist Maker: Francisco J Fonseca MD Laboratory - Chemistry and C hemistry - challenge 01-07-2022 Magnesium [Mass/Vol] 1.5 mg/dL Low 1.6 - 2 .6 mg/dL [facility] Anion gap [Moles/Vol] 9 mmol/L 9 - 17 mmol/L [facility] [employer] Calcium [Mass/Vol] 7.8 mg/dL Low 8.6 - 10. 4 mg/dL [facility] [employer] Chloride [Moles/Vol] 102 mmol/L 98 - 10 7 mmol/L [facility] [employer] CO2 [Moles/Vol] 24 mmol/L 20 - 31 mmol/L [facility] [employer] Creatinine [Mass/Vol] 0.49 mg/dL Low 0.70 - 1.20 mg/dL [facility] [employer] GFR/1.73 sq M.predicted MDRD (S/P/Bld) [Vol rate/Area] [facility] [employer] Comment on above: Average GFR for 70 o r more years old: 75 mL/min/1.73sq m Chronic Kidney Disease: <60 mL/min/1.73sq m Kidney failure: <15 mL/min/1.73sq m eGFR calculated using average adult body mass. Additional eGFR calculator available at: http://www.[employer]/multiple_crcl_2012.htm Glucose [Mass/Vol] 79 mg/dL 70 - 99 mg/dL [facility] Phosphate [Mass/Vol] 2.3 mg/dL Low 2.5 - 4 .5 mg/dL [facility] Potassium [Moles/Vol] 3.5 mmol/L Low 3.7 - 5.3 mmol/L [facility] Sodium [Moles/Vol] 135 mmol/L 135 - 144 mmol/L [facility] Urea nitrogen (BldV) [Mass/Vol] 7 mg/dL Low 8 - 23 mg/dL [facility] Laboratory - Hematology and Cell countson 01-07-2022 Basophils (Bld) [#/Vol] 0.00 10*3/uL [facility] Hematocrit (Bld) [Volume fraction] 36.6 % Low 40.7 - 50.3 % [facility] Hemoglobin (Bld) [Mass/Vol] 13.0 g/dL 13.0 - 17.0 g/dL [facility] MCH (RBC) [Entitic mass] 26.5 pg 25.2 - 33.5 pg [facility] MCHC (RBC) [Mass/Vol] 35.5 g/dL High 28.4 - 34.8 g/dL [facility] MCV (RBC) [Entitic vol] 74.5 fL Low 82.6 - 102.9 fL [facility] Morphology Walter (Bld) [Interp] MICROCYTOSIS PRESENT [facility] Morphology Walter (Bld) [Interp] 1+ TARGET CELLS [facility] Morphology Walter (Bld) [Interp] 1+ ACANTHOCYTES [facility] Platelet distribution width (Bld) [Ratio] 17.3 % High 11.8 - 14.4 % [facility] Platelets (Bld) [#/Vol] See Reflexed IPF Result [facility] RBC (Bld) [#/Vol] 4.91 10*6/uL 4.21 - 5.77 m/uL [facility] Segmented neutrophils/100 WBC (Bld) 75 % High 36 - 66 % [facility] WBC (Bld) [#/Vol] 11.1 10*3/uL [facility] Magnesiumon 01-07-2022 Magnesium [Mass/Vol] 1.5 mg/dL Low 1.6-2.6 [facility] Comment on above: Performed By: #### C DP #### [facility] [address] [place] [address] Twist Maker: Francisco J Fonseca MD No Panel Informationon 01-07 Absolute Eos # 0.11 [place] [facility] Absolute Immature Granulocyte 0.00 [facility] Absolute Lymph # 1.22 [facility] Absolute [place] # 1.44 High [facility] Interpretation and review of laboratory results Abnormal [facility] NRBC Automated 0.0 0.0 per 100 WBC [facility] Segs Absolute 8.33 High [facility] Platelet, Fluorescence 230 [facility] Comment on above: ORDERED BY LAB Platelet, Immature Fraction 10.1 % 1.1 - 10.3 % [facility] Comment on above: ORDERED BY LAB [facility] Interpretation and review of laboratory results Abnormal [facility] GFR >60 >60 mL/min [facility] GFR Non- >60 >60 mL/min [facility] Interpretation and review of laboratory results Abnormal [facility] PLT, Immature Fract.on 01-07 Platelet, Fluoresc. 230 k/uL Normal 138-453 [facility] Comment on above: Result Comment: ORDE RED BY LAB Performed By: #### C DP #### [facility] [address] [place] [address] Twist Maker: Francisco J Fonseca MD PLT, Immature Fract. 10.1 % Normal 1.1-10.3 [facility] Comment on above: Result Comment: ORDE RED BY LAB Performed By: #### C DP #### [facility] [email or web address] [address] [place] [address] Twist Maker: Francisco J Fonseca MD Phosphorus, Inorg.on 022 Phosphorus, Inorg. 2.3 mg/dL Low 2.5-4.5 [facility] Comment on above: Performed By: #### C DP, MELVIN, BMPX, MG, IPF #### [facility] [email or web address] [address] [place] [address] Twist Maker: Francisco J Fonseca MD Basic Metab w/rfx MGon 01-06 (cont.) Normal [facility] Comment on above: Result Comment: Aver age GFR for 70 or more years old: 75 mL/min/1.73sq m Chronic Kidney Disease: <60 mL/min/1.73sq m Kidney failure: <15 mL/min/1.73sq m eGFR calculated using average adult body mass. Additional eGFR calculator available at: http://www.[employer]/multiple_crcl_2012.htm Performed By: #### C DP, MELVIN, BMPX, IPF #### [facility] [email or web address] [address] [place] [address] Twist Maker: Francisco J Fonseca MD Anion gap [Moles/Vol] 11 mmol/L Normal 9-17 [facility] Comment on above: Performed By: #### C DP, MELVIN, BMPX, IPF #### [facility] [email or web address] [address] [place] [address] Twist Maker: Francisco J Fonseca MD Calcium [Mass/Vol] 7.7 mg/dL Low 8.6-10.4 [facility] Comment on above: Performed By: #### C DP, MELVIN, BMPX, IPF #### [facility] [address] [place] [address] Twist Maker: Francisco J Fonseca MD Chloride [Moles/Vol] 99 mmol/L Normal 98-107 [facility] Comment on above: Performed By: #### C DP, MELVIN, BMPX, IPF #### [facility] [address] [place] [address] Twist Maker: Francisco J Fonseca MD CO2 [Moles/Vol] 23 mmol/L Normal 20-31 [facility] Comment on above: Performed By: #### C DP, MELVIN, BMPX, IPF #### [facility] [address] [place] [address] Twist Maker: Francisco J Fonseca MD Creatinine [Mass/Vol] 0.50 mg/dL Low 0.70-1.20 [facility] Comment on above: Performed By: #### C DP, MELVIN, BMPX, IPF #### [facility] [email or web address] [address] [place] [address] Twist Maker: Francisco J Fonseca MD GFR, Amer >60 Normal >60 [facility] Comment on above: Performed By: #### C DP, MELVIN, BMPX, IPF #### [facility] [email or web address] [address] [place] [address] Twist Maker: Francisco J Fonseca MD GFR,non Amer >60 Normal >60 [facility] Comment on above: Performed By: #### C DP, MELVIN, BMPX, IPF #### [facility] [email or web address] [address] [place] [address] Twist Maker: Francisco J Fonseca MD Glucose [Mass/Vol] 149 mg/dL High 70-99 [facility] Comment on above: Performed By: #### C DP, MELVIN, BMPX, IPF #### [facility] [email or web address] [address] [place] [address] Twist Maker: Francisco J Fonseca MD Potassium [Moles/Vol] 3.6 mmol/L Low 3.7-5.3 [facility] Comment on above: Performed By: #### C DP, MELVIN, BMPX, IPF #### [address] [address] Twist Maker: Francisco J Fonseca MD Sodium [Moles/Vol] 133 mmol/L Low 135-144 [facility] Comment on above: Performed By: #### C DP, MELVIN, BMPX, IPF #### [place] [address] Twist Maker: Francisco J Fonseca MD Urea nitrogen [Mass/Vol] 11 mg/dL Normal 8-23 [facility] Comment on above: Performed By: #### C DP, MELVIN, BMPX, IPF #### [place] [address] Twist Maker: Francisco J Fonseca MD CBC with Diffon 01-06-2022 Abs. Basophil 0.03 k/uL Normal 0.00-0.20 [facility] Comment on above: Performed By: #### C DP, MELVIN, BMPX, IPF #### [place] [address] Twist Maker: Francisco J Fonseca MD Abs.Imm.Granulocyte 0.05 k/uL Normal 0.00-0.30 [facility] Comment on above: Performed By: #### C DP, MELVIN, BMPX, IPF #### [place] [address] Twist Maker: Francisco J Fonseca MD Abs.Neutrophil (Seg) 11.21 k/uL High 1.50-8.10 [facility] Comment on above: Performed By: #### C DP, MELVIN, BMPX, IPF #### [facility] [email or web address] [address] [place] [address] Twist Maker: Francisco J Fonseca MD Basophils/100 WBC (Bld) 0 % Normal 0-2 [facility] Comment on above: Performed By: #### C DP, MELVIN, BMPX, IPF #### [address] [address] Twist Maker: Francisco J Fonseca MD Eosinophils (Bld) [#/Vol] 0.09 10*3/uL Normal 0.00-0.44 [facility] Comment on above: Performed By: #### C DP, MELVIN, BMPX, IPF #### [address] [address] Twist Maker: Francisco J Fonseca MD Eosinophils/100 WBC (Bld) 1 % Normal 1-4 [facility] Comment on above: Performed By: #### C DP, MELVIN, BMPX, IPF #### [address] [address] Twist Maker: Francisco J Fonseca MD Erythrocyte distribution width (RBC) [Ratio] 18.4 % High 11.8-14.4 [facility] Comment on above: Performed By: #### C DP, MELVIN, BMPX, IPF #### [facility] [email or web address] [address] [place] [address] Twist Maker: Francisco J Fonseca MD Hematocrit (Bld) [Volume fraction] 38.2 % Low 40.7-50.3 [facility] Comment on above: Performed By: #### C DP, MELVIN, BMPX, IPF #### [facility] [email or web address] [address] [place] [address] Twist Maker: Francisco J Fonseca MD Hemoglobin (Bld) [Mass/Vol] 13.2 g/dL Normal 13.0-17.0 [facility] Comment on above: Performed By: #### C DP, MELVIN, BMPX, IPF #### [facility] [email or web address] [address] [place] [address] Twist Maker: Francisco J Fonseca MD Immature granulocytes/100 WBC (Bld) 0 % Normal 0 [facility] Comment on above: Performed By: #### C DP, MELVIN, BMPX, IPF #### [address] [address] Twist Maker: Francisco J Fonseca MD Lymphocytes (Bld) [#/Vol] 0.82 10*3/uL Low 1.10-3.70 [facility] Comment on above: Performed By: #### C DP, MELVIN, BMPX, IPF #### [address] [address] Twist Maker: Francisco J Fonseca MD Lymphocytes/100 WBC (Bld) 6 % Low 24-43 [facility] Comment on above: Performed By: #### C DP, MELVIN, BMPX, IPF #### [place] [address] Twist Maker: Francisco J Fonseca MD MCH (RBC) [Entitic mass] 26.7 pg Normal 25.2-33.5 [facility] Comment on above: Performed By: #### C DP, MELVIN, BMPX, IPF #### [address] [address] Twist Maker: Francisco J Fonseca MD MCHC (RBC) [Mass/Vol] 34.6 g/dL Normal 28.4-34.8 [facility] Comment on above: Performed By: #### C DP, MELVIN, BMPX, IPF #### [facility] [email or web address] [address] [place] [address] Twist Maker: Francisco J Fonseca MD MCV (RBC) [Entitic vol] 77.2 fL Low 82.6-102.9 [facility] Comment on above: Performed By: #### C DP, MELVIN, BMPX, IPF #### [facility] [email or web address] [address] [place] [address] Twist Maker: Francisco J Fonseca MD Monocytes (Bld) [#/Vol] 1.14 10*3/uL Normal 0.10-1.20 [facility] Comment on above: Performed By: #### C DP, MELVIN, BMPX, IPF #### [address] [address] Twist Maker: Francisco J Fonseca MD Monocytes/100 WBC (Bld) 9 % Normal 3-12 [facility] Comment on above: Performed By: #### C DP, MELVIN, BMPX, IPF #### [address] [address] Twist Maker: Francisco J Fonseca MD Neutrophil (Seg) 84 % High 36-65 [facility] Comment on above: Performed By: #### C DP, MELVIN, BMPX, IPF #### [address] [address] Twist Maker: Francisco J Fonseca MD NRBC Automated 0.0 per 100 WBC Normal 0.0 [facility] Comment on above: Performed By: #### C DP, MELVIN, BMPX, IPF #### [address] [address] Twist Maker: Francisco J Fonseca MD Platelet Count See Reflexed IPF Result Normal 138-453 [facility] Comment on above: Performed By: #### C DP, MELVIN, BMPX, IPF #### [facility] [email or web address] [address] [place] [address] Twist Maker: Francisco J Fonseca MD RBC (Bld) [#/Vol] 4.95 10*6/uL Normal 4.21-5.77 [facility] Comment on above: Performed By: #### C DP, MELVIN, BMPX, IPF #### [facility] [email or web address] [address] [place] [address] Twist Maker: Francisco J Fonseca MD RBC morphology finding Nom (Bld) ANISOCYTOSIS PRESENT Normal [facility] Comment on above: Result Comment: MICR OCYTOSIS PRESENT Performed By: #### C DP, MELVIN, BMPX, IPF #### [facility] [address] [place], [place] [id number] Twist Maker: Francisco J Fonseca MD WBC (Bld) [#/Vol] 13.3 10*3/uL High 3.5-11.3 [facility] Comment on above: Performed By: #### C DP, MELVIN, BMPX, IPF #### [facility] [address] [place], [place] [id number] Twist Maker: Francisco J Fonseca MD Laboratory - Chemistry and C hemistry - challengeon 01-06-2022 Anion gap [Moles/Vol] 11 mmol/L 9 - 17 mmol/L [employer] Calcium [Mass/Vol] 7.7 mg/dL Low 8.6 - 10. 4 mg/dL [employer] Chloride [Moles/Vol] 99 mmol/L 98 - 10 7 mmol/L [employer] CO2 [Moles/Vol] 23 mmol/L 20 - 31 mmol/L [employer] Creatinine [Mass/Vol] 0.5 mg/dL Low 0.70 - 1.20 mg/dL [employer] GFR/1.73 sq M.predicted MDRD (S/P/Bld) [Vol rate/Area] [facility] [employer] Comment on above: Average GFR for 70 o r more years old: 75 mL/min/1.73sq m Chronic Kidney Disease: <60 mL/min/1.73sq m Kidney failure: <15 mL/min/1.73sq m eGFR calculated using average adult body mass. Additional eGFR calculator available at: http://www.[employer].com/multiple_crcl_2012.htm Glucose [Mass/Vol] 149 mg/dL High 70 - 99 mg/dL [employer] Phosphate [Mass/Vol] 2.5 mg/dL 2.5 - 4 .5 mg/dL [employer] Potassium [Moles/Vol] 3.6 mmol/L Low 3.7 - 5.3 mmol/L [facility] Sodium [Moles/Vol] 133 mmol/L Low 135 - 144 mmol/L [facility] Urea nitrogen (BldV) [Mass/Vol] 11 mg/dL 8 - 23 mg/dL [facility] Laboratory - Hematology and Cell countson 01-06-2022 Basophils (Bld) [#/Vol] 0.03 10*3/uL [facility] Basophils/100 WBC (Bld) 0 % 0 - 2 % [facility] Eosinophils/100 WBC (Bld) 1 % 1 - 4 % [facility] Hematocrit (Bld) [Volume fraction] 38.2 % Low 40.7 - 50.3 % [facility] Hemoglobin (Bld) [Mass/Vol] 13.2 g/dL 13.0 - 17.0 g/dL [facility] Immature granulocytes/100 WBC (Bld) 0 % 0 [facility] Lymphocytes/100 WBC (Bld) 6 % Low 24 - 43 % [facility] MCH (RBC) [Entitic mass] 26.7 pg 25.2 - 33.5 pg [facility] MCHC (RBC) [Mass/Vol] 34.6 g/dL 28.4 - 34.8 g/dL [facility] MCV (RBC) [Entitic vol] 77.2 fL Low 82.6 - 102.9 fL [facility] Monocytes/100 WBC (Bld) 9 % 3 - 12 % [facility] Platelet distribution width (Bld) [Ratio] 18.4 % High 11.8 - 14.4 % [facility] Platelets (Bld) [#/Vol] See Reflexed IPF Result [facility] RBC (Bld) [#/Vol] 4.95 10*6/uL 4.21 - 5.77 m/uL [facility] RBC (Bld) [#/Vol] ANISOCYTOSIS PRESENT [facility] Comment on above: MICROCYTOSIS PRESENT Segmented neutrophils/100 WBC (Bld) 84 % High 36 - 65 % [facility] WBC (Bld) [#/Vol] 13.3 10*3/uL High [facility] No Panel Informationon 01-06 Platelet, Fluorescence 252 [facility] Platelet, Immature Fraction 10.1 % 1.1 - 10.3 % [facility] Absolute Eos # 0.09 [facility] Absolute Immature Granulocyte 0.05 [facility] Absolute Lymph # 0.82 Low [facility] Absolute [place] # 1.14 [facility] Interpretation and review of laboratory results Abnormal [facility] NRBC Automated 0.0 0.0 per 100 WBC [facility] Segs Absolute 11.21 High [facility] GFR >60 >60 mL/min [facility] GFR Non- >60 >60 mL/min [facility] Interpretation and review of laboratory results Abnormal [facility] PLT, Immature Fract.on 01-06 Platelet, Fluoresc. 252 k/uL Normal 138-453 [facility] Comment on above: Performed By: #### C DP, MELVIN, BMPX, IPF #### [facility] [address] [place] [address] [phone] Twist Maker: Francisco J Fonseca MD PLT, Immature Fract. 10.1 % Normal 1.1-10.3 [facility] Comment on above: Performed By: #### C DP, MELVIN, BMPX, IPF #### [facility] [address] [place] [address] [phone] Twist Maker: Francisco J Fonseca MD Phosphorus, Inorg.on 022 Phosphorus, Inorg. 2.5 mg/dL Normal 2.5-4.5 [facility] Comment on above: Performed By: #### C DP, MELVIN, BMPX, IPF #### [facility] [address] [place] [address] Twist Maker: Francisco J Fonseca MD Basic Metab w/rfx MGon 01-05 Potassium [Moles/Vol] 3.4 mmol/L Low 3.7-5.3 [facility] Comment on above: Performed By: #### C DP, MELVIN, BMPX, IPF #### [facility] [address] [place] [address] Twist Maker: Francisco J Fonseca MD Urea nitrogen [Mass/Vol] 14 mg/dL Normal 8-23 [facility] Comment on above: Performed By: #### C DP, MELVIN, BMPX, IPF #### [facility] [address] [place] [address] Twist Maker: Francisco J Fonseca MD Anion gap [Moles/Vol] 12 mmol/L Normal 9-17 [facility] Comment on above: Performed By: #### C DP, MELVIN, BMPX, IPF #### [facility] [address] [place] [address] Twist Maker: Francisco J Fonseca MD Calcium [Mass/Vol] 8.1 mg/dL Low 8.6-10.4 [facility] Comment on above: Performed By: #### C DP, MELVIN, BMPX, IPF #### [facility] [address] [place] [address] Twist Maker: Francisco J Fonseca MD Chloride [Moles/Vol] 98 mmol/L Normal 98-107 [facility] Comment on above: Performed By: #### C DP, MELVIN, BMPX, IPF #### [facility] [address] [place] [address] Twist Maker: Francisco J Fonseca MD CO2 [Moles/Vol] 24 mmol/L Normal 20-31 [facility] Comment on above: Performed By: #### C DP, MELVIN, BMPX, IPF #### [facility] [address] [place] [address] Twist Maker: Francisco J Fonseca MD Creatinine [Mass/Vol] 0.54 mg/dL Low 0.70-1.20 [facility] Comment on above: Performed By: #### C DP, MELVIN, BMPX, IPF #### [facility] [email or web address] [facility] [place] [address] Twist Maker: Francisco J Fonseca MD Glucose [Mass/Vol] 122 mg/dL High 70-99 [facility] Comment on above: Performed By: #### C DP, MELVIN, BMPX, IPF #### [facility] [email or web address] [address] [place] [phone] Twist Maker: Francisco J Fonseca MD Sodium [Moles/Vol] 134 mmol/L Low 135-144 [facility] Comment on above: Performed By: #### C DP, MELVIN, BMPX, IPF #### [facility] [email or web address] [address] [place] [address] Twist Maker: Francisco J Fonseca MD (cont.) [facility] Comment on above: Result Comment: Aver age GFR for 70 or more years old: 75 mL/min/1.73sq m Chronic Kidney Disease: <60 mL/min/1.73sq m Kidney failure: <15 mL/min/1.73sq m eGFR calculated using average adult body mass. Additional eGFR calculator available at: http://www.[employer] Medicine/multiple_[email or web address] Performed By: #### C DP, MELVIN, BMPX, IPF #### [facility] [email or web address] [address] [place] [address] Twist Maker: Francisco J Fonseca MD Anion gap [Moles/Vol] 11 mmol/L Normal 9-17 [facility] Comment on above: Performed By: #### C DP, MELVIN, BMPX, IPF #### [address] [address] Twist Maker: Francisco J Fonseca MD Calcium [Mass/Vol] 9.1 mg/dL Normal 8.6-10.4 [facility] Comment on above: Performed By: #### C DP, MELVIN, BMPX, IPF #### [facility] [address] [place] [address] Twist Maker: Francisco J Fonseca MD Chloride [Moles/Vol] 99 mmol/L Normal 98-107 [facility] Comment on above: Performed By: #### C DP, MELVIN, BMPX, IPF #### [facility] [address] [place] [address] Twist Maker: Francisco J Fonseca MD CO2 [Moles/Vol] 25 mmol/L Normal 20-31 [facility] Comment on above: Performed By: #### C DP, MELVIN, BMPX, IPF #### [address] [address] Twist Maker: Francisco J Fonseca MD Creatinine [Mass/Vol] 0.57 mg/dL Low 0.70-1.20 [facility] Comment on above: Performed By: #### C DP, MELVIN, BMPX, IPF #### [address] [address] Twist Maker: Francisco J Fonseca MD GFR, Amer >60 Normal >60 [facility] Comment on above: Performed By: #### C DP, MELVIN, BMPX, IPF #### [address] [address] Twist Maker: Francisco J Fonseca MD GFR,non Amer >60 Normal >60 [facility] Comment on above: Performed By: #### C DP, MELVIN, BMPX, IPF #### [facility] [email or web address] [address] [place] [address] Twist Maker: Francisco J Fonseca MD Glucose [Mass/Vol] 129 mg/dL High 70-99 [facility] Comment on above: Performed By: #### C DP, MELVIN, BMPX, IPF #### [facility] [employer] [address] [place] [address] Twist Maker: Francisco J Fonseca MD Potassium [Moles/Vol] 3.5 mmol/L Low 3.7-5.3 [facility] Comment on above: Performed By: #### C DP, MELVIN, BMPX, IPF #### [address] [address] Twist Maker: Francisco J Fonseca MD Sodium [Moles/Vol] 135 mmol/L Normal 135-144 [facility] Comment on above: Performed By: #### C DP, MELVIN, BMPX, IPF #### [address] [address] Twist Maker: Francisco J Fonseca MD Urea nitrogen [Mass/Vol] 15 mg/dL Normal 8-23 [facility] Comment on above: Performed By: #### C DP, MELVIN, BMPX, IPF #### [address] [address] Twist Maker: Francisco J Fonseca MD (cont.) [facility] Comment on above: Result Comment: Aver age GFR for 70 or more years old: 75 mL/min/1.73sq m Chronic Kidney Disease: <60 mL/min/1.73sq m Kidney failure: <15 mL/min/1.73sq m eGFR calculated using average adult body mass. Additional eGFR calculator available at: http://www.[employer]/multiple_crcl_2012.htm Performed By: #### C DP, MELVIN, BMPX, IPF #### [address] [address] Twist Maker: Francisco J Fonseca MD Anion gap [Moles/Vol] 15 mmol/L Normal 9-17 [facility] Comment on above: Performed By: #### C DP, MELVIN, BMPX, IPF #### [address] [address] Twist Maker: Francisco J Fonseca MD Calcium [Mass/Vol] 8.2 mg/dL Low 8.6-10.4 [facility] Comment on above: Performed By: #### C DP, MELVIN, BMPX, IPF #### [facility] [address] [place] [address] Twist Maker: Francisco J Fonseca MD Chloride [Moles/Vol] 98 mmol/L Normal 98-107 [facility] Comment on above: Performed By: #### C DP, MELVIN, BMPX, IPF #### [facility] [address] [place] [address] Twist Maker: Francisco J Fonseca MD CO2 [Moles/Vol] 23 mmol/L Normal 20-31 [facility] Comment on above: Performed By: #### C DP, MELVIN, BMPX, IPF #### [facility] [address] [place] [address] Twist Maker: Francisco J Fonseca MD Creatinine [Mass/Vol] 0.66 mg/dL Low 0.70-1.20 [facility] Comment on above: Performed By: #### C DP, MELVIN, BMPX, IPF #### [facility] [address] [place] [address] Twist Maker: Francisco J Fonseca MD GFR, Amer >60 Normal >60 [facility] Comment on above: Performed By: #### C DP, MELVIN, BMPX, IPF #### [facility] [email or web address] [address] [place] [address] Twist Maker: Francisco J Fonseca MD GFR,non Amer >60 Normal >60 [facility] Comment on above: Performed By: #### C DP, MELVIN, BMPX, IPF #### [facility] [address] [place] [address] Twist Maker: Francisco J Fonseca MD Glucose [Mass/Vol] 90 mg/dL Normal 70-99 [facility] Comment on above: Performed By: #### C DP, MELVIN, BMPX, IPF #### [facility] [address] [place] [address] Twist Maker: Francisco J Fonseca MD Potassium [Moles/Vol] 3.7 mmol/L Normal 3.7-5.3 [facility] Comment on above: Performed By: #### C DP, MELVIN, BMPX, IPF #### [facility] [employer] [address] [place] [address] Twist Maker: Francisco J Fonseca MD Sodium [Moles/Vol] 136 mmol/L Normal 135-144 [facility] Comment on above: Performed By: #### C DP, MELVIN, BMPX, IPF #### [address] [address] Twist Maker: Francisco J Fonseca MD Urea nitrogen [Mass/Vol] 20 mg/dL Normal 8-23 [facility] Comment on above: Performed By: #### C DP, MELVIN, BMPX, IPF #### [place] [address] Twist Maker: Francisco J Fonseca MD CBC with Diffon 01-05-2022 Abs. Basophil 0.04 k/uL Normal 0.00-0.20 [facility] Comment on above: Performed By: #### C DP, MELIVN, BMPX, IPF #### [facility] [employer] [address] [place] [address] Twist Maker: Francisco J Fonseca MD Abs.Imm.Granulocyte 0.08 k/uL Normal 0.00-0.30 [facility] Comment on above: Performed By: #### C DP, MELVIN, BMPX, IPF #### [facility] [employer] [address] [place] [address] Twist Maker: Francisco J Fonseca MD Abs.Neutrophil (Seg) 14.26 k/uL High 1.50-8.10 [facility] Comment on above: Performed By: #### C DP, MELVIN, BMPX, IPF #### [facility] [employer] [address] [place] [address] Twist Maker: Francisco J Fonseca MD Basophils/100 WBC (Bld) 0 % Normal 0-2 [facility] Comment on above: Performed By: #### C DP, MELVIN, BMPX, IPF #### [address] [address] Twist Maker: Francisco J Fonseca MD Eosinophils (Bld) [#/Vol] 0.11 10*3/uL Normal 0.00-0.44 [facility] Comment on above: Performed By: #### C DP, MELVIN, BMPX, IPF #### [place] [address] Twist Maker: Francisco J Fonseca MD Eosinophils/100 WBC (Bld) 1 % Normal 1-4 [facility] Comment on above: Performed By: #### C DP, MELVIN, BMPX, IPF #### [place] [address] Twist Maker: Francisco J Fonseca MD Immature granulocytes/100 WBC (Bld) 1 % High 0 [facility] Comment on above: Performed By: #### C DP, MELVIN, BMPX, IPF #### [facility] [email or web address] [address] [place] [address] Twist Maker: Francisco J Fonseca MD Lymphocytes (Bld) [#/Vol] 0.96 10*3/uL Low 1.10-3.70 [facility] Comment on above: Performed By: #### C DP, MELVIN, BMPX, IPF #### [facility] [employer] [address] [place] [address] Twist Maker: Francisco J Fonseca MD Lymphocytes/100 WBC (Bld) 6 % Low 24-43 [facility] Comment on above: Performed By: #### C DP, MELVIN, BMPX, IPF #### [facility] [employer] [address] [place] [address] Twist Maker: Francisco J Fonseca MD Monocytes (Bld) [#/Vol] 0.97 10*3/uL Normal 0.10-1.20 [facility] Comment on above: Performed By: #### C DP, MELVIN, BMPX, IPF #### [address] [address] Twist Maker: Francisco J Fonseca MD Monocytes/100 WBC (Bld) 6 % Normal 3-12 [facility] Comment on above: Performed By: #### C DP, MELVIN, BMPX, IPF #### [address] [address] Twist Maker: Francisco J Fonseca MD Neutrophil (Seg) 87 % High 36-65 [facility] Comment on above: Performed By: #### C DP, MELVIN, BMPX, IPF #### [address] [address] Twist Maker: Francisco J Fonseca MD Erythrocyte distribution width (RBC) [Ratio] 18.6 % High 11.8-14.4 [facility] Comment on above: Performed By: #### C DP, MELVIN, BMPX, IPF #### [address] [address] Twist Maker: Francisco J Fonseca MD Hematocrit (Bld) [Volume fraction] 38.9 % Low 40.7-50.3 [facility] Comment on above: Performed By: #### C DP, MELVIN, BMPX, IPF #### [facility] [employer] [address] [place] [address] Twist Maker: Francisco J Fonseca MD Hemoglobin (Bld) [Mass/Vol] 13.5 g/dL Normal 13.0-17.0 [facility] Comment on above: Performed By: #### C DP, MELVIN, BMPX, IPF #### [facility] [employer] [address] [place] [address] Twist Maker: Francisco J Fonseca MD MCH (RBC) [Entitic mass] 26.8 pg Normal 25.2-33.5 [facility] Comment on above: Performed By: #### C DP, MELVIN, BMPX, IPF #### [address] [address] Twist Maker: Francisco J Fonseca MD MCHC (RBC) [Mass/Vol] 34.7 g/dL Normal 28.4-34.8 [facility] Comment on above: Performed By: #### C DP, MELVIN, BMPX, IPF #### [address] [address] Twist Maker: Francisco J Fonseca MD MCV (RBC) [Entitic vol] 77.3 fL Low 82.6-102.9 [facility] Comment on above: Performed By: #### C DP, MELVIN, BMPX, IPF #### [address] [address] Twist Maker: Francisco J Fonseca MD NRBC Automated 0.0 per 100 WBC Normal 0.0 [facility] Comment on above: Performed By: #### C DP, MELVIN, BMPX, IPF #### [address] [address] Twist Maker: Francisco J Fonseca MD Platelet Count See Reflexed IPF Result Normal 138-453 [facility] Comment on above: Performed By: #### C DP, MELVIN, BMPX, IPF #### [address] [address] Twist Maker: Francisco J Fonseca MD RBC (Bld) [#/Vol] 5.03 10*6/uL Normal 4.21-5.77 [facility] Comment on above: Performed By: #### C DP, MELVIN, BMPX, IPF #### [address] [address] Twist Maker: Francisco J Fonseca MD RBC morphology finding Nom (Bld) ANISOCYTOSIS PRESENT Normal [facility] Comment on above: Result Comment: MICR OCYTOSIS PRESENT Performed By: #### C DP, MELVIN, BMPX, IPF #### [facility] [address] [place], [place] [phone] Twist Maker: Francisco J Fonseca MD WBC (Bld) [#/Vol] 16.4 10*3/uL High 3.5-11.3 [facility] Comment on above: Performed By: #### C DP, MELVIN, BMPX, IPF #### [facility] [address] [place], [place] [phone] Twist Maker: Francisco J Fonseca MD FL UGIon 01-05-2022 FL UGI EXAMINATION: SINGLE CONTRAST UPPER GI SERIES 01/05/2022 HISTORY: ORDERING SYSTEM PROVIDED HISTORY: repair perf ulcer TECHNOLOGIST PROVIDED HISTORY: repair perf ulcer COMPARISON: None. TECHNIQUE: Multiple single contrast images of the esophagus, gastroesophageal junction and stomach were obtained following the oral administration of water soluble contrast. FLUOROSCOPY DOSE AND TYPE OR TIME AND EXPOSURES: DAP 16.950Uuks7 FINDINGS: Contrast was administered through the indwelling NG tube. No extravasation of contrast from the stomach. There is normal filling of stomach and proximal small bowel loops. There was some reflux into the biliary tree. Gastroesophageal reflux is noted. IMPRESSION: 1. No evidence for contrast leakage from the stomach or duodenum following repair of perforated ulcer. 2. Gastroesophageal reflux. Interpreted by: Howard Aldridge MD Signed by: Howard Aldridge MD 01/05/22 Final result Normal [facility] - Chemistry and C hemistry - challengeon 01-05-2022 Magnesium [Mass/Vol] 1.4 mg/dL Low 1.6 - 2 .6 mg/dL [facility] [employer] GFR/1.73 sq M.predicted MDRD (S/P/Bld) [Vol rate/Area] [facility] Comment on above: Average GFR for 70 o r more years old: 75 mL/min/1.73sq m Chronic Kidney Disease: <60 mL/min/1.73sq m Kidney failure: <15 mL/min/1.73sq m eGFR calculated using average adult body mass. Additional eGFR calculator available at: http://www.[employer]/multiple_crcl_2012.htm Potassium [Moles/Vol] 3.4 mmol/L Low 3.7 - 5.3 mmol/L [facility] Urea nitrogen (BldV) [Mass/Vol] 14 mg/dL 8 - 23 mg/dL [facility] Phosphate [Mass/Vol] 2.4 mg/dL Low 2.5 - 4 .5 mg/dL [facility] Magnesium [Mass/Vol] 1.5 mg/dL Low 1.6 - 2 .6 mg/dL [facility] Anion gap [Moles/Vol] 11 mmol/L 9 - 17 mmol/L [facility] Calcium [Mass/Vol] 9.1 mg/dL 8.6 - 10. 4 mg/dL [facility] Chloride [Moles/Vol] 99 mmol/L 98 - 10 7 mmol/L [facility] CO2 [Moles/Vol] 25 mmol/L 20 - 31 mmol/L [facility] Creatinine [Mass/Vol] 0.57 mg/dL Low 0.70 - 1.20 mg/dL [facility] GFR/1.73 sq M.predicted MDRD (S/P/Bld) [Vol rate/Area] [facility] Comment on above: Average GFR for 70 o r more years old: 75 mL/min/1.73sq m Chronic Kidney Disease: <60 mL/min/1.73sq m Kidney failure: <15 mL/min/1.73sq m eGFR calculated using average adult body mass. Additional eGFR calculator available at: http://www.[employer]/multiple_crcl_2012.htm Glucose [Mass/Vol] 129 mg/dL High 70 - 99 mg/dL [facility] Phosphate [Mass/Vol] 2.4 mg/dL Low 2.5 - 4 .5 mg/dL [facility] Potassium [Moles/Vol] 3.5 mmol/L Low 3.7 - 5.3 mmol/L [facility] Sodium [Moles/Vol] 135 mmol/L 135 - 144 mmol/L [facility] Urea nitrogen (BldV) [Mass/Vol] 15 mg/dL 8 - 23 mg/dL [facility] Laboratory - Hematology and Cell countson 01-05-2022 Basophils (Bld) [#/Vol] 0.04 10*3/uL [facility] Basophils/100 WBC (Bld) 0 % 0 - 2 % [facility] Eosinophils/100 WBC (Bld) 1 % 1 - 4 % [facility] Hematocrit (Bld) [Volume fraction] 38.9 % Low 40.7 - 50.3 % [facility] Hemoglobin (Bld) [Mass/Vol] 13.5 g/dL 13.0 - 17.0 g/dL [facility] Immature granulocytes/100 WBC (Bld) 1 % High 0 [facility] Lymphocytes/100 WBC (Bld) 6 % Low 24 - 43 % [facility] MCH (RBC) [Entitic mass] 26.8 pg 25.2 - 33.5 pg [facility] MCHC (RBC) [Mass/Vol] 34.7 g/dL 28.4 - 34.8 g/dL [facility] MCV (RBC) [Entitic vol] 77.3 fL Low 82.6 - 102.9 fL [facility] Monocytes/100 WBC (Bld) 6 % 3 - 12 % [facility] Platelet distribution width (Bld) [Ratio] 18.6 % High 11.8 - 14.4 % [facility] Platelets (Bld) [#/Vol] See Reflexed IPF Result [facility] RBC (Bld) [#/Vol] 5.03 10*6/uL 4.21 - 5.77 m/uL [facility] RBC (Bld) [#/Vol] ANISOCYTOSIS PRESENT [facility] Comment on above: MICROCYTOSIS PRESENT Segmented neutrophils/100 WBC (Bld) 87 % High 36 - 65 % [facility] WBC (Bld) [#/Vol] 16.4 10*3/uL High [facility] Magnesiumon 01-05-2022 Magnesium [Mass/Vol] 1.4 mg/dL Low 1.6-2.6 [facility] Comment on above: Performed By: #### C DP, MELVIN, BMPX, IPF #### [facility] [address] [place], [place] [id number] Twist Maker: Francisco J Fonseca MD Magnesium [Mass/Vol] 1.5 mg/dL Low 1.6-2.6 [facility] Comment on above: Performed By: #### C DP, MELVIN, BMPX, IPF #### [facility] [address] [place], [place] [id number] Twist Maker: Francisco J Fonseca MD No Panel Informationon 01-05 1. No evidence for contrast leakage from the stomach or duodenum following repair of perforated ulcer. 2. Gastroesophageal reflux. [facility] EXAMINATION: SINGLE CONTRAST UPPER GI SERIES 01/05/2022 HISTORY: ORDERING SYSTEM PROVIDED HISTORY: repair perf ulcer TECHNOLOGIST PROVIDED HISTORY: repair perf ulcer COMPARISON: None. TECHNIQUE: Multiple single contrast images of the esophagus, gastroesophageal junction and stomach were obtained following the oral administration of water soluble contrast. FLUOROSCOPY DOSE AND TYPE OR TIME AND EXPOSURES: DAP [id number] FINDINGS: Contrast was administered through the indwelling NG tube. No extravasation of contrast from the stomach. There is normal filling of stomach and proximal small bowel loops. There was some reflux into the biliary tree. Gastroesophageal reflux is noted. [facility] Howard Aldridge MD - 01/05/2022 EXAMINATION: SINGLE CONTRAST UPPER GI SERIES 01/05/2022 HISTORY: ORDERING SYSTEM PROVIDED HISTORY: repair perf ulcer TECHNOLOGIST PROVIDED HISTORY: repair perf ulcer COMPARISON: None. TECHNIQUE: Multiple single contrast images of the esophagus, gastroesophageal junction and stomach were obtained following the oral administration of water soluble contrast. FLUOROSCOPY DOSE AND TYPE OR TIME AND EXPOSURES: DAP 16.558Uoyj5 FINDINGS: Contrast was administered through the indwelling NG tube. No extravasation of contrast from the stomach. There is normal filling of stomach and proximal small bowel loops. There was some reflux into the biliary tree. Gastroesophageal reflux is noted. IMPRESSION: 1. No evidence for contrast leakage from the stomach or duodenum following repair of perforated ulcer. 2. Gastroesophageal reflux. [facility] [employer] [facility] Work Phone: Radiology Study observation (narrative) [facility] Work Phone: Interpretation and review of laboratory results Abnormal [facility] GFR >60 >60 mL/min [facility] GFR Non- >60 >60 mL/min [facility] Interpretation and review of laboratory results Abnormal [facility] Interpretation and review of laboratory results Abnormal [facility] Interpretation and review of laboratory results Abnormal [facility] Platelet, Fluorescence 250 [facility] Platelet, Immature Fraction 10.5 % High 1.1 - 10.3 % [facility] Absolute Eos # 0.11 [facility] Absolute Immature Granulocyte 0.08 [facility] Absolute Lymph # 0.96 Low [facility] Absolute [place] # 0.97 [facility] Interpretation and review of laboratory results Abnormal [facility] NRBC Automated 0.0 0.0 per 100 WBC [facility] Segs Absolute 14.26 High [facility] Interpretation and review of laboratory results Abnormal [facility] GFR >60 >60 mL/min [facility] GFR Non- >60 >60 mL/min [facility] Interpretation and review of laboratory results Abnormal [facility] No Panel InformationOrdered By: Howard Aldridge on 01-05-2022 [facility] Work Phone: PLT, Immature Fract.on 01-05 Platelet, Fluoresc. 250 k/uL Normal 138-453 [facility] Comment on above: Performed By: #### C DP, MELVIN, BMPX, IPF #### [facility] [address] [place] [id number] Twist Maker: Francisco J Fonseca MD PLT, Immature Fract. 10.5 % High 1.1-10.3 [facility] Comment on above: Performed By: #### C DP, MELVIN, BMPX, IPF #### [facility] [address] [place] [address] Twist Maker: Francisco J Fonseca MD Phosphorus, Inorg.on 022 Phosphorus, Inorg. 2.4 mg/dL Low 2.5-4.5 [facility] Comment on above: Performed By: #### C DP, MELVIN, BMPX, IPF #### [facility] [employer] [address] [place] [address] Twist Maker: Francisco J Fonseca MD Phosphorus, Inorg. 1.9 mg/dL Low 2.5-4.5 [facility] Comment on above: Performed By: #### C DP, MELVIN, BMPX, IPF #### [facility] [employer] [address] [place] [address] Twist Maker: Francisco J Fonseca MD Basic Metab w/rfx MGon 01-04 Potassium [Moles/Vol] 3.4 mmol/L Low 3.7-5.3 [facility] Comment on above: Performed By: #### C DP, MELVIN, BMPX, IPF #### [facility] [employer] [address] [place] [address] Twist Maker: Francisco J Fonseca MD (cont.) [facility] Comment on above: Result Comment: Aver age GFR for 70 or more years old: 75 mL/min/1.73sq m Chronic Kidney Disease: <60 mL/min/1.73sq m Kidney failure: <15 mL/min/1.73sq m eGFR calculated using average adult body mass. Additional eGFR calculator available at: http://www.[employer]/multiple_crcl_2012.htm Performed By: #### C DP, MELVIN, BMPX, IPF #### [facility] [address] [place] [address] Twist Maker: Francisco J Fonseca MD Anion gap [Moles/Vol] 12 mmol/L Normal 9-17 [facility] Comment on above: Performed By: #### C DP, MELVIN, BMPX, IPF #### [facility] [employer] [address] [place] [address] Twist Maker: Francisco J Fonseca MD Calcium [Mass/Vol] 8.1 mg/dL Low 8.6-10.4 [facility] Comment on above: Performed By: #### C DP, MELVIN, BMPX, IPF #### [facility] [employer] [address] [place] [address] Twist Maker: Francisco J Fonseca MD Chloride [Moles/Vol] 99 mmol/L Normal 98-107 [facility] Comment on above: Performed By: #### C DP, MELVIN, BMPX, IPF #### [facility] [employer] [address] [place] [address] Twist Maker: Francisco J Fonseca MD CO2 [Moles/Vol] 23 mmol/L Normal 20-31 [facility] Comment on above: Performed By: #### C DP, MELVIN, BMPX, IPF #### [facility] [employer] [address] [place] [address] Twist Maker: Francisco J Fonseca MD Creatinine [Mass/Vol] 0.61 mg/dL Low 0.70-1.20 [facility] Comment on above: Performed By: #### C DP, MELVIN, BMPX, IPF #### [facility] [employer] [address] [place] [address] Twist Maker: Francisco J Fonseca MD GFR, Amer >60 Normal >60 [facility] Comment on above: Performed By: #### C DP, MELVIN, BMPX, IPF #### [facility] [employer] [address] [place] [address] Twist Maker: Francisco J Fonseca MD GFR,non Amer >60 Normal >60 [facility] Comment on above: Performed By: #### C DP, MELVIN, BMPX, IPF #### [address] [address] Twist Maker: Francisco J Fonseca MD Glucose [Mass/Vol] 125 mg/dL High 70-99 [facility] Comment on above: Performed By: #### C DP, MELVIN, BMPX, IPF #### [address] [address] Twist Maker: Francisco J Fonseca MD Sodium [Moles/Vol] 134 mmol/L Low 135-144 [facility] Comment on above: Performed By: #### C DP, MELVIN, BMPX, IPF #### [address] [address] Twist Maker: Francisco J Fonseca MD Urea nitrogen [Mass/Vol] 19 mg/dL Normal 8-23 [facility] Comment on above: Performed By: #### C DP, MELVIN, BMPX, IPF #### [address] [address] Twist Maker: Francisco J Fonseca MD (cont.) [facility] Comment on above: Result Comment: Aver age GFR for 70 or more years old: 75 mL/min/1.73sq m Chronic Kidney Disease: <60 mL/min/1.73sq m Kidney failure: <15 mL/min/1.73sq m eGFR calculated using average adult body mass. Additional eGFR calculator available at: http://www.[employer].com/multiple_crcl_2012.htm Performed By: #### C DP, MELVIN, BMPX, IPF #### [address] [address] Twist Maker: Francisco J Fonseca MD Anion gap [Moles/Vol] 13 mmol/L Normal 9-17 [facility] Comment on above: Performed By: #### C DP, MELVIN, BMPX, IPF #### [facility] [address] [place] [phone] Twist Maker: Francisco J Fonseca MD Calcium [Mass/Vol] 8.4 mg/dL Low 8.6-10.4 [facility] Comment on above: Performed By: #### C DP, MELVIN, BMPX, IPF #### [facility] [address] [place] [address] Twist Maker: Francisco J Fonseca MD Chloride [Moles/Vol] 101 mmol/L Normal 98-107 [facility] Comment on above: Performed By: #### C DP, MELVIN, BMPX, IPF #### [facility] [address] [place] [address] Twist Maker: Francisco J Fonseca MD CO2 [Moles/Vol] 23 mmol/L Normal 20-31 [facility] Comment on above: Performed By: #### C DP, MELVIN, BMPX, IPF #### [facility] [address] [place] [address] Twist Maker: Francisco J Fonseca MD Creatinine [Mass/Vol] 0.73 mg/dL Normal 0.70-1.20 [facility] Comment on above: Performed By: #### C DP, MELVIN, BMPX, IPF #### [facility] [email or web address] [address] [place] [address] Twist Maker: Francisco J Fonseca MD GFR, Amer >60 Normal >60 [facility] Comment on above: Performed By: #### C DP, MELVIN, BMPX, IPF #### [facility] [address] [place] [address] Twist Maker: Francisco J Fonseca MD GFR,non Amer >60 Normal >60 [facility] Comment on above: Performed By: #### C DP, MELVIN, BMPX, IPF #### [facility] [address] [place] [address] Twist Maker: Francisco J Fonseca MD Glucose [Mass/Vol] 124 mg/dL High 70-99 [facility] Comment on above: Performed By: #### C DP, MELVIN, BMPX, IPF #### [facility] [address] [place] [address] 39865 Twist Maker: Francisco J Fonseca MD Potassium [Moles/Vol] 3.9 mmol/L Normal 3.7-5.3 [facility] Comment on above: Performed By: #### C DP, MELVIN, BMPX, IPF #### [facility] [address] [place] [address] Twist Maker: Francisco J Fonseca MD Sodium [Moles/Vol] 137 mmol/L Normal 135-144 [facility] Comment on above: Performed By: #### C DP, MELVIN, BMPX, IPF #### [facility] [email or web address] [address] [place] [address] Twist Maker: Francisco J Fonseca MD Urea nitrogen [Mass/Vol] 24 mg/dL High 8-23 [facility] Comment on above: Performed By: #### C DP, MELVIN, BMPX, IPF #### [facility] [employer] [address] [place] [address]51 Twist Maker: Francisco J Fonseca MD (cont.) Normal [facility] Comment on above: Result Comment: Aver age GFR for 70 or more years old: 75 mL/min/1.73sq m Chronic Kidney Disease: <60 mL/min/1.73sq m Kidney failure: <15 mL/min/1.73sq m eGFR calculated using average adult body mass. Additional eGFR calculator available at: http://www.[employer]/multiple_crcl_2012.htm Performed By: #### B MPX, MELVIN #### [facility] [email or web address] [address] [place] [address] 23240 Twist Maker: Francisco J Fonseca MD Anion gap [Moles/Vol] 12 mmol/L Normal 9-17 [facility] Comment on above: Performed By: #### B MPX, MELVIN #### [facility] [address] [place] [address] 19572 Twist Maker: Francisco J Fonseca MD Calcium [Mass/Vol] 8.5 mg/dL Low 8.6-10.4 [facility] Comment on above: Performed By: #### B MPX, MELVIN #### [facility] [address] [place] [address] 9[address]20 Twist Maker: Francisco J Fonseca MD Chloride [Moles/Vol] 101 mmol/L Normal 98-107 [facility] Comment on above: Performed By: #### B MPX, MELVIN #### [facility] [email or web address] [address] [place] [address] [phone] Twist Maker: Francisco J Fonseca MD CO2 [Moles/Vol] 23 mmol/L Normal 20-31 [facility] Comment on above: Performed By: #### B MPX, MELVIN #### [address] [address] Twist Maker: Francisco J Fonseca MD Creatinine [Mass/Vol] 0.82 mg/dL Normal 0.70-1.20 [facility] Comment on above: Performed By: #### B MPX, MELVIN #### [facility] [address] [place] [address] 55969 Twist Maker: Francisco J Fonseca MD GFR, Amer >60 Normal >60 [facility] Comment on above: Performed By: #### B MPX, MELVIN #### [facility] [email or web address] [address] [place] [address] Twist Maker: Francisco J Fonseca MD GFR,non Amer >60 Normal >60 [facility] Comment on above: Performed By: #### B MPX, MELVIN #### [facility] [email or web address] [address] [place] [address] 09227 Twist Maker: Francisco J Fonseca MD Glucose [Mass/Vol] 100 mg/dL High 70-99 [facility] Comment on above: Performed By: #### B MPX, MELVIN #### [facility] [address] [place] [address] Twist Maker: Francisco J Fonseca MD Potassium [Moles/Vol] 3.9 mmol/L Normal 3.7-5.3 [facility] Comment on above: Performed By: #### B MPX, MELVIN #### [facility] [address] [place] [address] 19024 Twist Maker: Francisco J Fonseca MD Sodium [Moles/Vol] 136 mmol/L Normal 135-144 [facility] Comment on above: Performed By: #### B MPX, MELVIN #### [facility] [address] [place] [address] 97980 Twist Maker: Francisco J Fonseca MD Urea nitrogen [Mass/Vol] 26 mg/dL High 8-23 [facility] Comment on above: Performed By: #### B MPX, MELVIN #### [facility] [address] [place] [address]241 Twist Maker: Francisco J Fonseca MD (cont.) [facility] Comment on above: Result Comment: Aver age GFR for 70 or more years old: 75 mL/min/1.73sq m Chronic Kidney Disease: <60 mL/min/1.73sq m Kidney failure: <15 mL/min/1.73sq m eGFR calculated using average adult body mass. Additional eGFR calculator available at: http://www.[employer].com/multiple_crcl_2012.htm Performed By: #### C DP #### [facility] [address] [place] [phone] Twist Maker: Francisco J Fonseca MD Anion gap [Moles/Vol] 11 mmol/L Normal 9-17 [facility] Comment on above: Performed By: #### C DP #### [facility] [address] [place] [address] 54472 Twist Maker: Francisco J Fonseca MD Calcium [Mass/Vol] 8.3 mg/dL Low 8.6-10.4 [facility] Comment on above: Performed By: #### C DP #### [facility] [address] [place] [address] 79513 Twist Maker: Francisco J Fonseca MD Chloride [Moles/Vol] 104 mmol/L Normal 98-107 [facility] Comment on above: Performed By: #### C DP #### [address] [address] Twist Maker: Francisco J Fonseca MD CO2 [Moles/Vol] 21 mmol/L Normal 20-31 [facility] Comment on above: Performed By: #### C DP #### [address] [address] Twist Maker: Francisco J Fonseca MD Creatinine [Mass/Vol] 0.83 mg/dL Normal 0.70-1.20 [facility] Comment on above: Performed By: #### C DP #### [address] [address] Twist Maker: Francisco J Fonseca MD GFR, Amer >60 Normal >60 [facility] Comment on above: Performed By: #### C DP #### [address] [address] Twist Maker: Francisco J Fonseca MD GFR,non Amer >60 Normal >60 [facility] Comment on above: Performed By: #### C DP #### [address] [address] Twist Maker: Francisco J Fonseca MD Glucose [Mass/Vol] 71 mg/dL Normal 70-99 [facility] Comment on above: Performed By: #### C DP #### [address] [address] Twist Maker: Francisco J Fonseca MD Potassium [Moles/Vol] 4.5 mmol/L Normal 3.7-5.3 [facility] Comment on above: Result Comment: SPEC IMEN SLIGHTLY HEMOLYZED, RESULTS MAY BE ADVERSELY AFFECTED. Performed By: #### C DP #### [place] [address] Twist Maker: Francisco J Fonseca MD Sodium [Moles/Vol] 136 mmol/L Normal 135-144 [facility] Comment on above: Performed By: #### C DP #### [address] [address] Twist Maker: Francisco J Fonseca MD Urea nitrogen [Mass/Vol] 29 mg/dL High 8-23 [facility] Comment on above: Performed By: #### C DP #### [place] [address] Twist Maker: Francisco J Fonseca MD CBC with Diffon 01-04-2022 Abs. Basophil 0.04 k/uL Normal 0.00-0.20 [facility] Comment on above: Performed By: #### C DP #### [place] [address] Twist Maker: Francisco J Fonseca MD Abs. Eosinophil <0.03 Normal 0.00-0.44 [facility] Comment on above: Performed By: #### C DP #### [address] [address] Twist Maker: Francisco J Fonseca MD Abs.Imm.Granulocyte 0.20 k/uL Normal 0.00-0.30 [facility] Comment on above: Performed By: #### C DP #### [address] [address] Twist Maker: Francisco J Fonseca MD Abs.Neutrophil (Seg) 18.94 k/uL High 1.50-8.10 [facility] Comment on above: Performed By: #### C DP #### [address] [address] Twist Maker: Francisco J Fonseca MD Basophils/100 WBC (Bld) 0 % Normal 0-2 [facility] Comment on above: Performed By: #### C DP #### [address] [address] Twist Maker: Francisco J Fonseca MD Eosinophils/100 WBC (Bld) 0 % Low 1-4 [facility] Comment on above: Performed By: #### C DP #### [address] [address] Twist Maker: Francisco J Fonseca MD Erythrocyte distribution width (RBC) [Ratio] 19.0 % High 11.8-14.4 [facility] Comment on above: Performed By: #### C DP #### [address] [address] Twist Maker: Francisco J Fonseca MD Hematocrit (Bld) [Volume fraction] 35.1 % Low 40.7-50.3 [facility] Comment on above: Performed By: #### C DP #### [address] [address] Twist Maker: Francisco J Fonseca MD Hemoglobin (Bld) [Mass/Vol] 12.0 g/dL Low 13.0-17.0 [facility] Comment on above: Performed By: #### C DP #### [address] [address] Twist Maker: Francisco J Fonseca MD Immature granulocytes/100 WBC (Bld) 1 % High 0 [facility] Comment on above: Performed By: #### C DP #### [place] [address] Twist Maker: Francisco J Fonseca MD Lymphocytes (Bld) [#/Vol] 0.89 10*3/uL Low 1.10-3.70 [facility] Comment on above: Performed By: #### C DP #### [place] [address] Twist Maker: Francisco J Fonseca MD Lymphocytes/100 WBC (Bld) 4 % Low 24-43 [facility] Comment on above: Performed By: #### C DP #### [place] [address] Twist Maker: Francisco J Fonseca MD MCH (RBC) [Entitic mass] 27.6 pg Normal 25.2-33.5 [facility] Comment on above: Performed By: #### C DP #### [place] [address] Twist Maker: Francisco J Fonseca MD MCHC (RBC) [Mass/Vol] 34.2 g/dL Normal 28.4-34.8 [facility] Comment on above: Performed By: #### C DP #### [place] [address] Twist Maker: Francisco J Fonseca MD MCV (RBC) [Entitic vol] 80.7 fL Low 82.6-102.9 [facility] Comment on above: Performed By: #### C DP #### [place] [address] Twist Maker: Francisco J Fonseca MD Monocytes (Bld) [#/Vol] 1.33 10*3/uL High 0.10-1.20 [facility] Comment on above: Performed By: #### C DP #### [address] [address] Twist Maker: Francisco J Fonseca MD Monocytes/100 WBC (Bld) 6 % Normal 3-12 [facility] Comment on above: Performed By: #### C DP #### [address] [address] Twist Maker: Francisco J Fonseca MD Neutrophil (Seg) 89 % High 36-65 [facility] Comment on above: Performed By: #### C DP #### [address] [address] Twist Maker: Francisco J Fonseca MD NRBC Automated 0.0 per 100 WBC Normal 0.0 [facility] Comment on above: Performed By: #### C DP #### [address] [address] Twist Maker: Francisco J Fonseca MD Platelet mean volume (Bld) [Entitic vol] 12.3 fL Normal 8.1-13.5 [facility] Comment on above: Performed By: #### C DP #### [address] [address] Twist Maker: Francisco J Fonseca MD Platelets (Bld) [#/Vol] 245 10*3/uL Normal 138-453 [facility] Comment on above: Performed By: #### C DP #### [address] [address] Twist Maker: Francisco J Fonseca MD RBC (Bld) [#/Vol] 4.35 10*6/uL Normal 4.21-5.77 [facility] Comment on above: Performed By: #### C DP #### [address] [address] Twist Maker: Francisco J Fonseca MD RBC morphology finding Nom (Bld) ANISOCYTOSIS PRESENT Normal [facility] Comment on above: Result Comment: MICR OCYTOSIS PRESENT Performed By: #### C DP #### [facility] [email or web address] [address] [place], [place] [phone] Twist Maker: Francisco J Fonseca MD WBC (Bld) [#/Vol] 21.4 10*3/uL High 3.5-11.3 [facility] Comment on above: Performed By: #### C DP #### [facility] [address] [place], [place] [phone] Twist Maker: Francisco J Fonseca MD Cult,Urineon 01-04-2022 Cult,Urine Specimen Description .INDWELLING CATH URINE Culture NO GROWTH Report Status FINAL 01/04/2022 Normal [facility] Comment on above: Performed By: #### C DP, MELVIN, BMPX, IPF #### [facility] [email or web address] [facility] [place], [place] [phone] Twist Maker: Francisco J Fonseca MD Laboratory - Chemistry and C hemistry - challengeon 01-04-2022 Anion gap [Moles/Vol] 15 mmol/L 9 - 17 mmol/L [facility] Calcium [Mass/Vol] 8.2 mg/dL Low 8.6 - 10. 4 mg/dL [facility] Chloride [Moles/Vol] 98 mmol/L 98 - 10 7 mmol/L [facility] CO2 [Moles/Vol] 23 mmol/L 20 - 31 mmol/L [facility] [employer] Creatinine [Mass/Vol] 0.66 mg/dL Low 0.70 - 1.20 mg/dL [facility] GFR/1.73 sq M.predicted MDRD (S/P/Bld) [Vol rate/Area] [facility] [employer] Comment on above: Average GFR for 70 o r more years old: 75 mL/min/1.73sq m Chronic Kidney Disease: <60 mL/min/1.73sq m Kidney failure: <15 mL/min/1.73sq m eGFR calculated using average adult body mass. Additional eGFR calculator available at: http://www.[employer]/multiple_crcl_2012.htm Glucose [Mass/Vol] 90 mg/dL 70 - 99 mg/dL [facility] Phosphate [Mass/Vol] 1.9 mg/dL Low 2.5 - 4 .5 mg/dL [facility] Potassium [Moles/Vol] 3.7 mmol/L 3.7 - 5.3 mmol/L [facility] Sodium [Moles/Vol] 136 mmol/L 135 - 144 mmol/L [facility] Urea nitrogen (BldV) [Mass/Vol] 20 mg/dL 8 - 23 mg/dL [facility] Magnesium [Mass/Vol] 1.5 mg/dL Low 1.6 - 2 .6 mg/dL [facility] Anion gap [Moles/Vol] 12 mmol/L 9 - 17 mmol/L [facility] Calcium [Mass/Vol] 8.1 mg/dL Low 8.6 - 10. 4 mg/dL [facility] Chloride [Moles/Vol] 99 mmol/L 98 - 10 7 mmol/L [facility] CO2 [Moles/Vol] 23 mmol/L 20 - 31 mmol/L [facility] Creatinine [Mass/Vol] 0.61 mg/dL Low 0.70 - 1.20 mg/dL [facility] GFR/1.73 sq M.predicted MDRD (S/P/Bld) [Vol rate/Area] [facility] Comment on above: Average GFR for 70 o r more years old: 75 mL/min/1.73sq m Chronic Kidney Disease: <60 mL/min/1.73sq m Kidney failure: <15 mL/min/1.73sq m eGFR calculated using average adult body mass. Additional eGFR calculator available at: http://www.[employer]/multiple_crcl_2012.htm Glucose [Mass/Vol] 125 mg/dL High 70 - 99 mg/dL [facility] Potassium [Moles/Vol] 3.4 mmol/L Low 3.7 - 5.3 mmol/L [facility] Sodium [Moles/Vol] 134 mmol/L Low 135 - 144 mmol/L [facility] Urea nitrogen (BldV) [Mass/Vol] 19 mg/dL 8 - 23 mg/dL [facility] Phosphate [Mass/Vol] 2.2 mg/dL Low 2.5 - 4 .5 mg/dL [facility] Anion gap [Moles/Vol] 13 mmol/L 9 - 17 mmol/L [facility] Calcium [Mass/Vol] 8.4 mg/dL Low 8.6 - 10. 4 mg/dL [facility] Chloride [Moles/Vol] 101 mmol/L 98 - 10 7 mmol/L [facility] CO2 [Moles/Vol] 23 mmol/L 20 - 31 mmol/L [facility] Creatinine [Mass/Vol] 0.73 mg/dL 0.70 - 1.20 mg/dL [facility] GFR/1.73 sq M.predicted MDRD (S/P/Bld) [Vol rate/Area] [facility] Comment on above: Average GFR for 70 o r more years old: 75 mL/min/1.73sq m Chronic Kidney Disease: <60 mL/min/1.73sq m Kidney failure: <15 mL/min/1.73sq m eGFR calculated using average adult body mass. Additional eGFR calculator available at: http://www.[employer]/multiple_crcl_2011.htm Glucose [Mass/Vol] 124 mg/dL High 70 - 99 mg/dL [facility] Phosphate [Mass/Vol] 2.5 mg/dL 2.5 - 4 .5 mg/dL [facility] Potassium [Moles/Vol] 3.9 mmol/L 3.7 - 5.3 mmol/L [facility] Sodium [Moles/Vol] 137 mmol/L 135 - 144 mmol/L [facility] Urea nitrogen (BldV) [Mass/Vol] 24 mg/dL High 8 - 23 mg/dL [facility] Glucose [Mass/Vol] 108 mg/dL 75 - 110 mg/dL [facility] Anion gap [Moles/Vol] 12 mmol/L 9 - 17 mmol/L [facility] Calcium [Mass/Vol] 8.5 mg/dL Low 8.6 - 10. 4 mg/dL [facility] Chloride [Moles/Vol] 101 mmol/L 98 - 10 7 mmol/L [facility] CO2 [Moles/Vol] 23 mmol/L 20 - 31 mmol/L [facility] Creatinine [Mass/Vol] 0.82 mg/dL 0.70 - 1.20 mg/dL [facility] GFR/1.73 sq M.predicted MDRD (S/P/Bld) [Vol rate/Area] [facility] Comment on above: Average GFR for 70 o r more years old: 75 mL/min/1.73sq m Chronic Kidney Disease: <60 mL/min/1.73sq m Kidney failure: <15 mL/min/1.73sq m eGFR calculated using average adult body mass. Additional eGFR calculator available at: http://www.[employer]/multiple_crcl_2011.htm Glucose [Mass/Vol] 100 mg/dL High 70 - 99 mg/dL [facility] Phosphate [Mass/Vol] 2.7 mg/dL 2.5 - 4 .5 mg/dL [facility] Potassium [Moles/Vol] 3.9 mmol/L 3.7 - 5.3 mmol/L [facility] Sodium [Moles/Vol] 136 mmol/L 135 - 144 mmol/L [facility] Urea nitrogen (BldV) [Mass/Vol] 26 mg/dL High 8 - 23 mg/dL [facility] Glucose [Mass/Vol] 81 mg/dL 75 - 110 mg/dL [facility] Anion gap [Moles/Vol] 11 mmol/L 9 - 17 mmol/L [facility] Calcium [Mass/Vol] 8.3 mg/dL Low 8.6 - 10. 4 mg/dL [facility] Chloride [Moles/Vol] 104 mmol/L 98 - 10 7 mmol/L [facility] CO2 [Moles/Vol] 21 mmol/L 20 - 31 mmol/L [facility] Creatinine [Mass/Vol] 0.83 mg/dL 0.70 - 1.20 mg/dL [facility] GFR/1.73 sq M.predicted MDRD (S/P/Bld) [Vol rate/Area] [facility] Comment on above: Average GFR for 70 o r more years old: 75 mL/min/1.73sq m Chronic Kidney Disease: <60 mL/min/1.73sq m Kidney failure: <15 mL/min/1.73sq m eGFR calculated using average adult body mass. Additional eGFR calculator available at: http://www.[employer]/multiple_crcl_2012.htm Glucose [Mass/Vol] 71 mg/dL 70 - 99 mg/dL [facility] Phosphate [Mass/Vol] 3.2 mg/dL 2.5 - 4 .5 mg/dL [facility] Potassium [Moles/Vol] 4.5 mmol/L 3.7 - 5.3 mmol/L [facility] Comment on above: SPECIMEN SLIGHTLY HE MOLYZED, RESULTS MAY BE ADVERSELY AFFECTED. Sodium [Moles/Vol] 136 mmol/L 135 - 144 mmol/L [facility] Urea nitrogen (BldV) [Mass/Vol] 29 mg/dL High 8 - 23 mg/dL [facility] Laboratory - Hematology and Cell countson 01-04-2022 Basophils (Bld) [#/Vol] 0.04 10*3/uL [facility] Basophils/100 WBC (Bld) 0 % 0 - 2 % [facility] Eosinophils/100 WBC (Bld) 0 % Low 1 - 4 % [facility] Hematocrit (Bld) [Volume fraction] 35.1 % Low 40.7 - 50.3 % [facility] Hemoglobin (Bld) [Mass/Vol] 12.0 g/dL Low 13.0 - 17.0 g/dL [facility] Immature granulocytes/100 WBC (Bld) 1 % High 0 [facility] Lymphocytes/100 WBC (Bld) 4 % Low 24 - 43 % [facility] MCH (RBC) [Entitic mass] 27.6 pg 25.2 - 33.5 pg [facility] MCHC (RBC) [Mass/Vol] 34.2 g/dL 28.4 - 34.8 g/dL [facility] MCV (RBC) [Entitic vol] 80.7 fL Low 82.6 - 102.9 fL [facility] Monocytes/100 WBC (Bld) 6 % 3 - 12 % [facility] Platelet distribution width (Bld) [Ratio] 19.0 % High 11.8 - 14.4 % [facility] Platelet mean volume (Bld) [Entitic vol] 12.3 fL 8.1 - 13.5 fL [facility] Platelets (Bld) [#/Vol] 245 10*3/uL [facility] RBC (Bld) [#/Vol] 4.35 10*6/uL 4.21 - 5.77 m/uL [facility] RBC (Bld) [#/Vol] ANISOCYTOSIS PRESENT [facility] Comment on above: MICROCYTOSIS PRESENT Segmented neutrophils/100 WBC (Bld) 89 % High 36 - 65 % [facility] WBC (Bld) [#/Vol] 21.4 10*3/uL High [facility] Laboratory - Microbiology an d Antimicrobial susceptibilityon 01-04-2022 Bacteria identified Cx Nom (U) NO GROWTH [facility] Magnesiumon 01-04-2022 Magnesium [Mass/Vol] 1.5 mg/dL Low 1.6-2.6 [facility] Comment on above: Performed By: #### C DP, MELVIN, BMPX, IPF #### [employer] [address] [place], [place] [phone] Twist Maker: Francisco J Fonseca MD No Panel Informationon 01-04 GFR >60 >60 mL/min [facility] GFR Non- >60 >60 mL/min [facility] Interpretation and review of laboratory results Abnormal [facility] Interpretation and review of laboratory results Abnormal [facility] GFR >60 >60 mL/min [facility] GFR Non- >60 >60 mL/min [facility] Interpretation and review of laboratory results Abnormal [facility] Interpretation and review of laboratory results Abnormal [facility] GFR >60 >60 mL/min [facility] GFR Non- >60 >60 mL/min [facility] Interpretation and review of laboratory results Abnormal [facility] GFR >60 >60 mL/min [facility] GFR Non- >60 >60 mL/min [facility] Interpretation and review of laboratory results Abnormal [facility] GFR >60 >60 mL/min [facility] GFR Non- >60 >60 mL/min [facility] Interpretation and review of laboratory results Abnormal [facility] Absolute Eos # <0.03 [facility] Absolute Immature Granulocyte 0.20 [facility] Absolute Lymph # 0.89 Low [facility] Absolute [place] # 1.33 High [facility] Interpretation and review of laboratory results Abnormal [facility] NRBC Automated 0.0 0.0 per 100 WBC [facility] Segs Absolute 18.94 High [facility] Specimen Description .INDWELLING CATH URINE [facility] Phosphorus, Inorg.on 022 Phosphorus, Inorg. 2.2 mg/dL Low 2.5-4.5 [facility] Comment on above: Performed By: #### C DP, MELVIN, BMPX, IPF #### [facility] [address] [place] [address] Twist Maker: Francisco J Fonseca MD Phosphorus, Inorg. 2.5 mg/dL Normal 2.5-4.5 [facility] Comment on above: Performed By: #### C DP, MELVIN, BMPX, IPF #### [facility] [address] [place] [id number] Twist Maker: Francisco J Fonseca MD Phosphorus, Inorg. 2.7 mg/dL Normal 2.5-4.5 [facility] Comment on above: Performed By: #### B MPX, MELVIN #### [address] [id number] Twist Maker: Francisco J Fonseca MD Phosphorus, Inorg. 3.2 mg/dL Normal 2.5-4.5 [facility] Comment on above: Performed By: #### C DP #### [place] [address] Twist Maker: Francisco J Fonseca MD Basic Metab w/rfx MGon 01-03 (cont.) Normal [facility] Comment on above: Result Comment: Aver age GFR for 70 or more years old: 75 mL/min/1.73sq m Chronic Kidney Disease: <60 mL/min/1.73sq m Kidney failure: <15 mL/min/1.73sq m eGFR calculated using average adult body mass. Additional eGFR calculator available at: http://www.[employer]/multiple_crcl_2011.htm Performed By: #### C DP, MELVIN, BMPX, IPF #### [place] [address] Twist Maker: Francisco J Fonseca MD Anion gap [Moles/Vol] 12 mmol/L Normal 9-17 [facility] Comment on above: Performed By: #### C DP, MELVIN, BMPX, IPF #### [facility] [email or web address] [address] [place] [phone] Twist Maker: Francisco J Fonseca MD Calcium [Mass/Vol] 8.3 mg/dL Low 8.6-10.4 [facility] Comment on above: Performed By: #### C DP, MELVIN, BMPX, IPF #### [facility] [employer] [address] [place] [address] Twist Maker: Francisco J Fonseca MD Chloride [Moles/Vol] 102 mmol/L Normal 98-107 [facility] Comment on above: Performed By: #### C DP, MELVIN, BMPX, IPF #### [facility] [address] [place] [address] Twist Maker: Francisco J Fonseca MD CO2 [Moles/Vol] 21 mmol/L Normal 20-31 [facility] Comment on above: Performed By: #### C DP, MELVIN, BMPX, IPF #### [facility] [address] [place] [address] Twist Maker: Francisco J Fonseca MD Creatinine [Mass/Vol] 0.88 mg/dL Normal 0.70-1.20 [facility] Comment on above: Performed By: #### C DP, MELVIN, BMPX, IPF #### [facility] [address] [place] [address] Twist Maker: Francisco J Fonseca MD GFR, Amer >60 Normal >60 [facility] Comment on above: Performed By: #### C DP, MELVIN, BMPX, IPF #### [facility] [employer] [address] [place] [address] Twist Maker: Francisco J Fonseca MD GFR,non Amer >60 Normal >60 [facility] Comment on above: Performed By: #### C DP, MELVIN, BMPX, IPF #### [facility] [employer] [address] [place] [address] Twist Maker: Francisco J Fonseca MD Glucose [Mass/Vol] 74 mg/dL Normal 70-99 [facility] Comment on above: Performed By: #### C DP, MELVIN, BMPX, IPF #### [facility] [employer] [address] [place] [address] Twist Maker: Francisco J Fonseca MD Potassium [Moles/Vol] 4.2 mmol/L Normal 3.7-5.3 [facility] Comment on above: Performed By: #### C DP, MELVIN, BMPX, IPF #### [facility] [employer] [address] [place] [address] Twist Maker: Francisco J Fonseca MD Sodium [Moles/Vol] 135 mmol/L Normal 135-144 [facility] Comment on above: Performed By: #### C DP, MELVIN, BMPX, IPF #### [facility] [address] [place] [address] Twist Maker: Francisco J Fonseca MD Urea nitrogen [Mass/Vol] 29 mg/dL High 8-23 [facility] Comment on above: Performed By: #### C DP, MELVIN, BMPX, IPF #### [address] [address] Twist Maker: Francisco J Fonseca MD (cont.) [facility] Comment on above: Result Comment: Aver age GFR for 70 or more years old: 75 mL/min/1.73sq m Chronic Kidney Disease: <60 mL/min/1.73sq m Kidney failure: <15 mL/min/1.73sq m eGFR calculated using average adult body mass. Additional eGFR calculator available at: http://www.[employer]/multiple_crcl_2012.htm Performed By: #### C DP #### [address] [address] Twist Maker: Francisco J Fonseca MD Anion gap [Moles/Vol] 12 mmol/L Normal 9-17 [facility] Comment on above: Performed By: #### C DP #### [facility] [employer] [address] [place] [address] Twist Maker: Francisco J Fonseca MD Calcium [Mass/Vol] 8.4 mg/dL Low 8.6-10.4 [facility] Comment on above: Performed By: #### C DP #### [address] [id number] [place] [address] Twist Maker: Francisco J Fonseca MD Chloride [Moles/Vol] 103 mmol/L Normal 98-107 [facility] Comment on above: Performed By: #### C DP #### [address] [address] Twist Maker: Francisco J Fonseca MD CO2 [Moles/Vol] 21 mmol/L Normal 20-31 [facility] Comment on above: Performed By: #### C DP #### [address] [address] Twist Maker: Francisco J Fonseca MD Creatinine [Mass/Vol] 0.93 mg/dL Normal 0.70-1.20 [facility] Comment on above: Performed By: #### C DP #### [address] [address] Twist Maker: Francisco J Fonseca MD GFR, Amer >60 Normal >60 [facility] Comment on above: Performed By: #### C DP #### [address] [address] Twist Maker: Francisco J Fonseca MD GFR,non Amer >60 Normal >60 [facility] Comment on above: Performed By: #### C DP #### [address] [address] Twist Maker: Francisco J Fonseca MD Glucose [Mass/Vol] 155 mg/dL High 70-99 [facility] Comment on above: Performed By: #### C DP #### [address] [address] Twist Maker: Francisco J Fonseca MD Potassium [Moles/Vol] 3.9 mmol/L Normal 3.7-5.3 [facility] Comment on above: Performed By: #### C DP #### [address] [address] Twist Maker: Francisco J Fonseca MD Sodium [Moles/Vol] 136 mmol/L Normal 135-144 [facility] Comment on above: Performed By: #### C DP #### [address] [address] Twist Maker: Francisco J Fonseca MD Urea nitrogen [Mass/Vol] 28 mg/dL High 8-23 [facility] Comment on above: Performed By: #### C DP #### [address] [address] Twist Maker: Francisco J Fonseca MD (cont.) Normal [facility] Comment on above: Result Comment: Aver age GFR for 70 or more years old: 75 mL/min/1.73sq m Chronic Kidney Disease: <60 mL/min/1.73sq m Kidney failure: <15 mL/min/1.73sq m eGFR calculated using average adult body mass. Additional eGFR calculator available at: http://www.[employer]/multiple_crcl_2011.htm Performed By: #### C DP, MELVIN, BMPX, IPF #### [address] [address] Twist Maker: Francisco J Fonseca MD Anion gap [Moles/Vol] 11 mmol/L Normal 9-17 [facility] Comment on above: Performed By: #### C DP, MELVIN, BMPX, IPF #### [address] [address] Twist Maker: Francisco J Fonseca MD Calcium [Mass/Vol] 8.4 mg/dL Low 8.6-10.4 [facility] Comment on above: Performed By: #### C DP, MELVIN, BMPX, IPF #### [facility] [employer] [address] [place] [address] Twist Maker: Francisco J Fonseca MD Chloride [Moles/Vol] 103 mmol/L Normal 98-107 [facility] Comment on above: Performed By: #### C DP, MELVIN, BMPX, IPF #### [facility] [employer] [address] [place] [address] Twist Maker: Francisco J Fonseca MD CO2 [Moles/Vol] 24 mmol/L Normal 20-31 [facility] Comment on above: Performed By: #### C DP, MELVIN, BMPX, IPF #### [facility] [address] [place] [address] Twist Maker: Francisco J Fonseca MD Creatinine [Mass/Vol] 0.92 mg/dL Normal 0.70-1.20 [facility] Comment on above: Performed By: #### C DP, MELVIN, BMPX, IPF #### [facility] [address] [place] [address] Twist Maker: Francisco J Fonseca MD GFR, Amer >60 Normal >60 [facility] Comment on above: Performed By: #### C DP, MELVIN, BMPX, IPF #### [facility] [address] [place] [address] Twist Maker: Francisco J Fonseca MD GFR,non Amer >60 Normal >60 [facility] Comment on above: Performed By: #### C DP, MELVIN, BMPX, IPF #### [facility] [employer] [address] [place] [address] Twist Maker: Francisco J Fonseca MD Glucose [Mass/Vol] 226 mg/dL High 70-99 [facility] Comment on above: Performed By: #### C DP, MELVIN, BMPX, IPF #### [facility] [address] [place] [address] Twist Maker: Francisco J Fonseca MD Potassium [Moles/Vol] 5.0 mmol/L Normal 3.7-5.3 [facility] Comment on above: Performed By: #### C DP, MELVIN, BMPX, IPF #### [facility] [employer] [address] [place] [address] Twist Maker: Francisco J Fonseca MD Sodium [Moles/Vol] 138 mmol/L Normal 135-144 [facility] Comment on above: Performed By: #### C DP, MELVIN, BMPX, IPF #### [facility] [address] [place] [address] Twist Maker: Francisco J Fonseca MD Urea nitrogen [Mass/Vol] 26 mg/dL High 8-23 [facility] Comment on above: Performed By: #### C DP, MELVIN, BMPX, IPF #### [facility] [employer] [address] [place] [address] Twist Maker: Francisco J Fonseca MD (cont.) [facility] Comment on above: Result Comment: Aver age GFR for 70 or more years old: 75 mL/min/1.73sq m Chronic Kidney Disease: <60 mL/min/1.73sq m Kidney failure: <15 mL/min/1.73sq m eGFR calculated using average adult body mass. Additional eGFR calculator available at: http://www.[employer]/multiple_crcl_2012.htm Performed By: #### C DP, MELVIN, BMPX, IPF #### [address] [address] Twist Maker: Francisco J Fonseca MD Anion gap [Moles/Vol] 13 mmol/L Normal 9-17 [facility] Comment on above: Performed By: #### C DP, MELVIN, BMPX, IPF #### [facility] [address] [place] [address] Twist Maker: Francisco J Fonseca MD Calcium [Mass/Vol] 8.4 mg/dL Low 8.6-10.4 [facility] Comment on above: Performed By: #### C DP, MELVIN, BMPX, IPF #### [facility] [address] [place] [address] Twist Maker: Francisco J Fonseca MD Chloride [Moles/Vol] 104 mmol/L Normal 98-107 [facility] Comment on above: Performed By: #### C DP, MELVIN, BMPX, IPF #### [facility] [employer] [address] [place] [address] Twist Maker: Francisco J Fonseca MD CO2 [Moles/Vol] 21 mmol/L Normal 20-31 [facility] Comment on above: Performed By: #### C DP, MELVIN, BMPX, IPF #### [address] [address] Twist Maker: Francisco J Fonseca MD Creatinine [Mass/Vol] 0.84 mg/dL Normal 0.70-1.20 [facility] Comment on above: Performed By: #### C DP, MELVIN, BMPX, IPF #### [address] [address] Twist Maker: Francisco J Fonseca MD GFR, Amer >60 Normal >60 [facility] Comment on above: Performed By: #### C DP, MELVIN, BMPX, IPF #### [address] [address] Twist Maker: Francisco J Fonseca MD GFR,non Amer >60 Normal >60 [facility] Comment on above: Performed By: #### C DP, MELVIN, BMPX, IPF #### [facility] [employer] [address] [place] [address] Twist Maker: Francisco J Fonseca MD Glucose [Mass/Vol] 176 mg/dL High 70-99 [facility] Comment on above: Performed By: #### C DP, MELVIN, BMPX, IPF #### [facility] [employer] [address] [place] [address] Twist Maker: Francisco J Fonseca MD Potassium [Moles/Vol] 4.5 mmol/L Normal 3.7-5.3 [facility] Comment on above: Performed By: #### C DP, MELVIN, BMPX, IPF #### [facility] [place] [address] Twist Maker: Francisco J Fonseca MD Sodium [Moles/Vol] 138 mmol/L Normal 135-144 [facility] Comment on above: Performed By: #### C DP, MELVIN, BMPX, IPF #### [facility] [address] [place] [address] Twist Maker: Francisco J Fonseca MD Urea nitrogen [Mass/Vol] 21 mg/dL Normal 8-23 [facility] Comment on above: Performed By: #### C DP, MELVIN, BMPX, IPF #### [facility] [address] [place] [address] Twist Maker: Francisco J Fonseca MD (cont.) [facility] Comment on above: Result Comment: Aver age GFR for 70 or more years old: 75 mL/min/1.73sq m Chronic Kidney Disease: <60 mL/min/1.73sq m Kidney failure: <15 mL/min/1.73sq m eGFR calculated using average adult body mass. Additional eGFR calculator available at: http://www.[employer]/multiple_crcl_2012.htm Performed By: #### C DP, MELVIN, BMPX, IPF #### [facility] [address] [place] [address] Twist Maker: Francisco J Fonseca MD Anion gap [Moles/Vol] 6 mmol/L Low 9-17 [facility] Comment on above: Performed By: #### C DP, MELVIN, BMPX, IPF #### [facility] [address] [place] [address] Twist Maker: Francisco J Fonseca MD Calcium [Mass/Vol] 8.5 mg/dL Low 8.6-10.4 [facility] Comment on above: Performed By: #### C DP, MELVIN, BMPX, IPF #### [facility] [address] [place] [address] Twist Maker: Francisco J Fonseca MD Chloride [Moles/Vol] 105 mmol/L Normal 98-107 [facility] Comment on above: Performed By: #### C DP, MELVIN, BMPX, IPF #### [facility] [employer] [address] [place] [address] Twist Maker: Francisco J Fonseca MD CO2 [Moles/Vol] 25 mmol/L Normal 20-31 [facility] Comment on above: Performed By: #### C DP, MELVIN, BMPX, IPF #### [address] [address] Twist Maker: Francisco J Fonseca MD Creatinine [Mass/Vol] 0.75 mg/dL Normal 0.70-1.20 [facility] Comment on above: Performed By: #### C DP, MELVIN, BMPX, IPF #### [facility] [employer] [address] [place] [address] Twist Maker: Francisco J Fonseca MD GFR, Amer >60 Normal >60 [facility] Comment on above: Performed By: #### C DP, MELVIN, BMPX, IPF #### [facility] [employer] [address] [place] [address] Twist Maker: Francisco J Fonseca MD GFR,non Amer >60 Normal >60 [facility] Comment on above: Performed By: #### C DP, MELVIN, BMPX, IPF #### [facility] [employer] [address] [place] [address] Twist Maker: Francisco J Fonseca MD Glucose [Mass/Vol] 81 mg/dL Normal 70-99 [facility] Comment on above: Performed By: #### C DP, MELVIN, BMPX, IPF #### [facility] [address] [place] [address] Twist Maker: Francisco J Fonseca MD Potassium [Moles/Vol] 4.6 mmol/L Normal 3.7-5.3 [facility] Comment on above: Performed By: #### C DP, MELVIN, BMPX, IPF #### [address] [address] Twist Maker: Francisco J Fonseca MD Sodium [Moles/Vol] 136 mmol/L Normal 135-144 [facility] Comment on above: Performed By: #### C DP, MELVIN, BMPX, IPF #### [place] [address] Tw[employer] Maker: Francisco J Fonseca MD Urea nitrogen [Mass/Vol] 18 mg/dL Normal 8-23 [facility] Comment on above: Performed By: #### C DP, MELVIN, BMPX, IPF #### [place] [address] Twist Maker: Francisco J Fonseca MD CBC with Diffon 01-03-2022 Abs. Basophil 0.00 k/uL Normal 0.0-0.2 [facility] Comment on above: Performed By: #### C DP #### [place] [address] Twist Maker: Francisco J Fonseca MD Abs.Imm.Granulocyte 0.00 k/uL Normal 0.00-0.30 [facility] Comment on above: Performed By: #### C DP #### [place] [address] Twist Maker: Francisco J Fonseca MD Abs.Neutrophil (Seg) 19.89 k/uL High 1.8-7.7 [facility] Comment on above: Performed By: #### C DP #### [place] [address] Twist Maker: Francisco J Fonseca MD Basophils/100 WBC (Bld) 0 % Normal 0-2 [facility] Comment on above: Performed By: #### C DP #### [address] [address] Twist Maker: Francisco J Fonseca MD Eosinophils (Bld) [#/Vol] 0.00 10*3/uL Normal 0.0-0.4 [facility] Comment on above: Performed By: #### C DP #### [address] [address] Twist Maker: Francisco J Fonseca MD Eosinophils/100 WBC (Bld) 0 % Low 1-4 [facility] Comment on above: Performed By: #### C DP #### [address] [address] Twist Maker: Francisco J Fonseca MD Immature granulocytes/100 WBC (Bld) 0 % Normal 0 [facility] Comment on above: Performed By: #### C DP #### [address] [address] Twist Maker: Francisco J Fonseca MD Lymphocytes (Bld) [#/Vol] 0.88 10*3/uL Low 1.0-4.8 [facility] Comment on above: Performed By: #### C DP #### [address] [address] Twist Maker: Francisco J Fonseca MD Lymphocytes/100 WBC (Bld) 4 % Low 24-44 [facility] Comment on above: Performed By: #### C DP #### [address] [address] Twist Maker: Francisco J Fonseca MD Monocytes (Bld) [#/Vol] 1.33 10*3/uL High 0.1-0.8 [facility] Comment on above: Performed By: #### C DP #### [address] [address] Twist Maker: Francisco J Fonseca MD Monocytes/100 WBC (Bld) 6 % Normal 1-7 [facility] Comment on above: Performed By: #### C DP #### [address] [address] Twist Maker: Francisco J Fonseca MD Morphology Walter (Bld) [Interp] MICROCYTOSIS PRESENT Normal [facility] Comment on above: Result Comment: ANIS OCYTOSIS PRESENT 1+ ACANTHOCYTES Performed By: #### C DP #### [address] [address] Twist Maker: Francisco J Fonseca MD Neutrophil (Seg) 90 % High 36-66 [facility] Comment on above: Performed By: #### C DP #### [address] [address] Twist Maker: Francisco J Fonseca MD Erythrocyte distribution width (RBC) [Ratio] 18.9 % High 11.8-14.4 [facility] Comment on above: Performed By: #### C DP #### [address] [address] Twist Maker: Francisco J Fonseca MD Hematocrit (Bld) [Volume fraction] 37.4 % Low 40.7-50.3 [facility] Comment on above: Performed By: #### C DP #### [address] [address] Twist Maker: Francisco J Fonseca MD Hemoglobin (Bld) [Mass/Vol] 12.2 g/dL Low 13.0-17.0 [facility] Comment on above: Performed By: #### C DP #### [address] [address] Twist Maker: Francisco J Fonseca MD MCH (RBC) [Entitic mass] 26.9 pg Normal 25.2-33.5 [facility] Comment on above: Performed By: #### C DP #### [address] [address] Twist Maker: Francisco J Fonseca MD MCHC (RBC) [Mass/Vol] 32.6 g/dL Normal 28.4-34.8 [facility] Comment on above: Performed By: #### C DP #### [address] [address] Twist Maker: Francisco J Fonseca MD MCV (RBC) [Entitic vol] 82.4 fL Low 82.6-102.9 [facility] Comment on above: Performed By: #### C DP #### [address] [address] Twist Maker: Francisco J Fonseca MD NRBC Automated 0.0 per 100 WBC Normal 0.0 [facility] Comment on above: Performed By: #### C DP #### [address] [address] Twist Maker: Francisco J Fonseca MD Platelet mean volume (Bld) [Entitic vol] 12.6 fL Normal 8.1-13.5 [facility] Comment on above: Performed By: #### C DP #### [address] [address] Twist Maker: Francisco J Fonseca MD Platelets (Bld) [#/Vol] 292 10*3/uL Normal 138-453 [facility] Comment on above: Performed By: #### C DP #### [address] [address] Twist Maker: Francisco J Fonseca MD RBC (Bld) [#/Vol] 4.54 10*6/uL Normal 4.21-5.77 [facility] Comment on above: Performed By: #### C DP #### [address] [address] Twist Maker: Francisco J Fonseca MD WBC (Bld) [#/Vol] 22.1 10*3/uL High 3.5-11.3 [facility] Comment on above: Performed By: #### C DP #### [facility] [address] [place], [place] [id number] Twist Maker: Francisco J Fonseca MD Hemoglobin A1Con 5543 Glucose [Mass/Vol] 223 mg/dL Normal [facility] Comment on above: Result Comment: The ADA and AACC recommend providing the estimated average glucose result to permit better patient understanding of their HBA1c result. Performed By: #### C DP, MELVIN, BMPX, IPF #### [facility] [place], [place] [id number] Twist Maker: Francisco J Fonseca MD HbA1c (Bld) [Mass fraction] 9.4 % High 4.0-6.0 [facility] Comment on above: Performed By: #### C DP, MELVIN, BMPX, IPF #### [facility] [place] [address] Twist Maker: Francisco J Fonseca MD Laboratory - Chemistry and C hemistry - challengeon 7 Anion gap [Moles/Vol] 12 mmol/L 9 - 17 mmol/L [facility] [employer] Calcium [Mass/Vol] 8.3 mg/dL Low 8.6 - 10. 4 mg/dL [facility] Chloride [Moles/Vol] 102 mmol/L 98 - 10 7 mmol/L [facility] CO2 [Moles/Vol] 21 mmol/L 20 - 31 mmol/L [facility] Creatinine [Mass/Vol] 0.88 mg/dL 0.70 - 1.20 mg/dL [facility] [employer] GFR/1.73 sq M.predicted MDRD (S/P/Bld) [Vol rate/Area] [facility] Comment on above: Average GFR for 70 o r more years old: 75 mL/min/1.73sq m Chronic Kidney Disease: <60 mL/min/1.73sq m Kidney failure: <15 mL/min/1.73sq m eGFR calculated using average adult body mass. Additional eGFR calculator available at: http://www.[employer]/multiple_crcl_2012.htm Glucose [Mass/Vol] 74 mg/dL 70 - 99 mg/dL [facility] Phosphate [Mass/Vol] 3.3 mg/dL 2.5 - 4 .5 mg/dL [facility] Potassium [Moles/Vol] 4.2 mmol/L 3.7 - 5.3 mmol/L [facility] Sodium [Moles/Vol] 135 mmol/L 135 - 144 mmol/L [facility] Urea nitrogen (BldV) [Mass/Vol] 29 mg/dL High 8 - 23 mg/dL [facility] Glucose [Mass/Vol] 69 mg/dL Low 75 - 110 mg/dL [facility] Glucose [Mass/Vol] 93 mg/dL 75 - 110 mg/dL [facility] Glucose [Mass/Vol] 55 mg/dL Low 75 - 110 mg/dL [facility] Comment on above: Critical Noted Glucose [Mass/Vol] 88 mg/dL 75 - 110 mg/dL [facility] Anion gap [Moles/Vol] 12 mmol/L 9 - 17 mmol/L [facility] Calcium [Mass/Vol] 8.4 mg/dL Low 8.6 - 10. 4 mg/dL [facility] Chloride [Moles/Vol] 103 mmol/L 98 - 10 7 mmol/L [facility] CO2 [Moles/Vol] 21 mmol/L 20 - 31 mmol/L [facility] Creatinine [Mass/Vol] 0.93 mg/dL 0.70 - 1.20 mg/dL [facility] GFR/1.73 sq M.predicted MDRD (S/P/Bld) [Vol rate/Area] [facility] Comment on above: Average GFR for 70 o r more years old: 75 mL/min/1.73sq m Chronic Kidney Disease: <60 mL/min/1.73sq m Kidney failure: <15 mL/min/1.73sq m eGFR calculated using average adult body mass. Additional eGFR calculator available at: http://www.[employer]/multiple_crcl_2012.htm Glucose [Mass/Vol] 155 mg/dL High 70 - 99 mg/dL [facility] Phosphate [Mass/Vol] 2.9 mg/dL 2.5 - 4 .5 mg/dL [facility] Potassium [Moles/Vol] 3.9 mmol/L 3.7 - 5.3 mmol/L [facility] Sodium [Moles/Vol] 136 mmol/L 135 - 144 mmol/L [facility] Urea nitrogen (BldV) [Mass/Vol] 28 mg/dL High 8 - 23 mg/dL [facility] Glucose [Mass/Vol] 152 mg/dL High 75 - 110 mg/dL [facility] Glucose [Mass/Vol] 216 mg/dL High 75 - 110 mg/dL [facility] Glucose [Mass/Vol] 242 mg/dL High 75 - 110 mg/dL [facility] Glucose [Mass/Vol] 243 mg/dL High 75 - 110 mg/dL [facility] Anion gap [Moles/Vol] 11 mmol/L 9 - 17 mmol/L [facility] Calcium [Mass/Vol] 8.4 mg/dL Low 8.6 - 10. 4 mg/dL [facility] Chloride [Moles/Vol] 103 mmol/L 98 - 10 7 mmol/L [facility] CO2 [Moles/Vol] 24 mmol/L 20 - 31 mmol/L [facility] Creatinine [Mass/Vol] 0.92 mg/dL 0.70 - 1.20 mg/dL [facility] GFR/1.73 sq M.predicted MDRD (S/P/Bld) [Vol rate/Area] [facility] Comment on above: Average GFR for 70 o r more years old: 75 mL/min/1.73sq m Chronic Kidney Disease: <60 mL/min/1.73sq m Kidney failure: <15 mL/min/1.73sq m eGFR calculated using average adult body mass. Additional eGFR calculator available at: http://www.[employer]/multiple_crcl_2012.htm Glucose [Mass/Vol] 226 mg/dL High 70 - 99 mg/dL [facility] Phosphate [Mass/Vol] 3.5 mg/dL 2.5 - 4 .5 mg/dL [facility] Potassium [Moles/Vol] 5.0 mmol/L 3.7 - 5.3 mmol/L [facility] Sodium [Moles/Vol] 138 mmol/L 135 - 144 mmol/L [facility] Urea nitrogen (BldV) [Mass/Vol] 26 mg/dL High 8 - 23 mg/dL [facility] Glucose [Mass/Vol] 214 mg/dL High 75 - 110 mg/dL [facility] Anion gap [Moles/Vol] 13 mmol/L 9 - 17 mmol/L [facility] Calcium [Mass/Vol] 8.4 mg/dL Low 8.6 - 10. 4 mg/dL [facility] Chloride [Moles/Vol] 104 mmol/L 98 - 10 7 mmol/L [facility] CO2 [Moles/Vol] 21 mmol/L 20 - 31 mmol/L [facility] Creatinine [Mass/Vol] 0.84 mg/dL 0.70 - 1.20 mg/dL [facility] GFR/1.73 sq M.predicted MDRD (S/P/Bld) [Vol rate/Area] [facility] Comment on above: Average GFR for 70 o r more years old: 75 mL/min/1.73sq m Chronic Kidney Disease: <60 mL/min/1.73sq m Kidney failure: <15 mL/min/1.73sq m eGFR calculated using average adult body mass. Additional eGFR calculator available at: http://www.[employer]/multiple_crcl_2012.htm Glucose [Mass/Vol] 176 mg/dL High 70 - 99 mg/dL [facility] Phosphate [Mass/Vol] 3.1 mg/dL 2.5 - 4 .5 mg/dL [facility] Potassium [Moles/Vol] 4.5 mmol/L 3.7 - 5.3 mmol/L [facility] Sodium [Moles/Vol] 138 mmol/L 135 - 144 mmol/L [facility] Urea nitrogen (BldV) [Mass/Vol] 21 mg/dL 8 - 23 mg/dL [facility] Glucose [Mass/Vol] 126 mg/dL High 75 - 110 mg/dL [facility] Glucose [Mass/Vol] 165 mg/dL High 75 - 110 mg/dL [facility] Glucose [Mass/Vol] 142 mg/dL High 75 - 110 mg/dL [facility] Glucose [Mass/Vol] 89 mg/dL 75 - 110 mg/dL [facility] Glucose [Mass/Vol] 71 mg/dL Low 75 - 110 mg/dL [facility] Glucose [Mass/Vol] 82 mg/dL 75 - 110 mg/dL [facility] Glucose [Mass/Vol] 128 mg/dL High 75 - 110 mg/dL [facility] Anion gap [Moles/Vol] 6 mmol/L Low 9 - 17 mmol/L [facility] Calcium [Mass/Vol] 8.5 mg/dL Low 8.6 - 10. 4 mg/dL [facility] Chloride [Moles/Vol] 105 mmol/L 98 - 10 7 mmol/L [facility] CO2 [Moles/Vol] 25 mmol/L 20 - 31 mmol/L [facility] Creatinine [Mass/Vol] 0.75 mg/dL 0.70 - 1.20 mg/dL [facility] GFR/1.73 sq M.predicted MDRD (S/P/Bld) [Vol rate/Area] [facility] Comment on above: Average GFR for 70 o r more years old: 75 mL/min/1.73sq m Chronic Kidney Disease: <60 mL/min/1.73sq m Kidney failure: <15 mL/min/1.73sq m eGFR calculated using average adult body mass. Additional eGFR calculator available at: http://www.[employer]/multiple_crcl_2012.htm Glucose [Mass/Vol] 81 mg/dL 70 - 99 mg/dL [facility] Phosphate [Mass/Vol] 2.5 mg/dL 2.5 - 4 .5 mg/dL [facility] Potassium [Moles/Vol] 4.6 mmol/L 3.7 - 5.3 mmol/L [facility] Sodium [Moles/Vol] 136 mmol/L 135 - 144 mmol/L [facility] Urea nitrogen (BldV) [Mass/Vol] 18 mg/dL 8 - 23 mg/dL [facility] Glucose [Mass/Vol] 187 mg/dL High 75 - 110 mg/dL [facility] Laboratory - Hematology and Cell countson 01-03-2022 Basophils (Bld) [#/Vol] 0.00 10*3/uL [facility] Basophils/100 WBC (Bld) 0 % 0 - 2 % [facility] Eosinophils/100 WBC (Bld) 0 % Low 1 - 4 % [facility] Hematocrit (Bld) [Volume fraction] 37.4 % Low 40.7 - 50.3 % [facility] Hemoglobin (Bld) [Mass/Vol] 12.2 g/dL Low 13.0 - 17.0 g/dL [facility] Immature granulocytes/100 WBC (Bld) 0 % 0 [facility] Lymphocytes/100 WBC (Bld) 4 % Low 24 - 44 % [facility] MCH (RBC) [Entitic mass] 26.9 pg 25.2 - 33.5 pg [facility] MCHC (RBC) [Mass/Vol] 32.6 g/dL 28.4 - 34.8 g/dL [facility] MCV (RBC) [Entitic vol] 82.4 fL Low 82.6 - 102.9 fL [facility] Monocytes/100 WBC (Bld) 6 % 1 - 7 % [facility] Morphology Walter (Bld) [Interp] MICROCYTOSIS PRESENT [facility] Morphology Walter (Bld) [Interp] ANISOCYTOSIS PRESENT [facility] Morphology Walter (Bld) [Interp] 1+ ACANTHOCYTES [facility] Platelet distribution width (Bld) [Ratio] 18.9 % High 11.8 - 14.4 % [facility] Platelet mean volume (Bld) [Entitic vol] 12.6 fL 8.1 - 13.5 fL [facility] Platelets (Bld) [#/Vol] 292 10*3/uL [facility] RBC (Bld) [#/Vol] 4.54 10*6/uL 4.21 - 5.77 m/uL [facility] Segmented neutrophils/100 WBC (Bld) 90 % High 36 - 66 % [facility] WBC (Bld) [#/Vol] 22.1 10*3/uL High [facility] No Panel Informationon 01-03 GFR >60 >60 mL/min [facility] GFR Non- >60 >60 mL/min [facility] Interpretation and review of laboratory results Abnormal [facility] Interpretation and review of laboratory results Abnormal [facility] Interpretation and review of laboratory results Abnormal [facility] GFR >60 >60 mL/min [facility] GFR Non- >60 >60 mL/min [facility] Interpretation and review of laboratory results Abnormal [facility] Interpretation and review of laboratory results Abnormal [facility] Interpretation and review of laboratory results Abnormal [facility] Interpretation and review of laboratory results Abnormal [facility] Interpretation and review of laboratory results Abnormal [facility] GFR >60 >60 mL/min [facility] GFR Non- >60 >60 mL/min [facility] Interpretation and review of laboratory results Abnormal [facility] Interpretation and review of laboratory results Abnormal [facility] Absolute Eos # 0.00 [facility] Absolute Immature Granulocyte 0.00 [facility] Absolute Lymph # 0.88 Low [facility] Absolute [place] # 1.33 High [facility] Interpretation and review of laboratory results Abnormal [facility] NRBC Automated 0.0 0.0 per 100 WBC [facility] Segs Absolute 19.89 High [facility] GFR >60 >60 mL/min [facility] GFR Non- >60 >60 mL/min [facility] Interpretation and review of laboratory results Abnormal [facility] Interpretation and review of laboratory results Abnormal [facility] Interpretation and review of laboratory results Abnormal [facility] GFR >60 >60 mL/min [facility] GFR Non- >60 >60 mL/min [facility] Interpretation and review of laboratory results Abnormal [facility] Interpretation and review of laboratory results Abnormal [facility] Phosphorus, Inorg.on 022 Phosphorus, Inorg. 3.3 mg/dL Normal 2.5-4.5 [facility] Comment on above: Performed By: #### C DP, MELVIN, BMPX, IPF #### [facility] [address] [place] [id number] Twist Maker: Francisco J Fonseca MD Phosphorus, Inorg. 2.9 mg/dL Normal 2.5-4.5 [facility] Comment on above: Performed By: #### C DP #### [facility] [address] [place] [address] Twist Maker: Francisco J Fonseca MD Phosphorus, Inorg. 3.5 mg/dL Normal 2.5-4.5 [facility] Comment on above: Performed By: #### C DP, MELVIN, BMPX, IPF #### [facility] [address] [place] [address] Twist Maker: Francisco J Fonseca MD Phosphorus, Inorg. 3.1 mg/dL Normal 2.5-4.5 [facility] Comment on above: Performed By: #### C DP, MELVIN, BMPX, IPF #### [facility] [address] [place], [place] [id number] Twist Maker: Francisco J Fonseca MD Phosphorus, Inorg. 2.5 mg/dL Normal 2.5-4.5 [facility] Comment on above: Performed By: #### C DP, MELVIN, BMPX, IPF #### [address] [phone] Twist Maker: Francisco J Fonseca MD XR ABDOMEN FOR NG/OG/NE TUBE PLACEMENTon 01-03-2022 XR ABDOMEN FOR NG/OG/NE TUBE PLACEMENT EXAMINATION: ONE SUPINE XRAY VIEW(S) OF THE ABDOMEN 01/02/2022 9:31 pm COMPARISON: CT abdomen pelvis 01/02/2022 HISTORY: ORDERING SYSTEM PROVIDED HISTORY: Confirmation of course of NG/OG/NE tube and location of tip of tube TECHNOLOGIST PROVIDED HISTORY: Confirmation of course of NG/OG/NE tube and location of tip of tube Portable?->Yes Reason for Exam: Supine port, NG placement FINDINGS: Enteric tube tip terminates the level GE junction. This needs to be advanced at least 10 cm. IMPRESSION: Enteric tube needs to be advanced 10 cm. Interpreted by: Eulogio Winslow MD Signed by: Eulogio Winslow MD 01/02/22 Final result Normal [facility] AMYLASEon 01-02-2022 Amylase [Catalytic activity/Vol] 13 U/L Critically low 25-115 [facility] Comment on above: Performed By: #### L IPA, MARGA, LIVER, BMP #### [facility] [address] [address] [address] Kylee Bunch Basic Metabolic Profon 01-02 Glucose [Mass/Vol] 452 mg/dL Critically high 70-99 [facility] Comment on above: Performed By: #### C DP #### [address] [phone] Twist Maker: Francisco J Fonseca MD (cont.) Normal [facility] Comment on above: Result Comment: Aver age GFR for 70 or more years old: 75 mL/min/1.73sq m Chronic Kidney Disease: <60 mL/min/1.73sq m Kidney failure: <15 mL/min/1.73sq m eGFR calculated using average adult body mass. Additional eGFR calculator available at: http://www.[employer]/multiple_crcl_2012.htm Performed By: #### C DP #### [address] [address] Twist Maker: Francisco J Fonseca MD Anion gap [Moles/Vol] 12 mmol/L Normal 9-17 [facility] Comment on above: Performed By: #### C DP #### [address] [address] Twist Maker: Francisco J Fonseca MD Calcium [Mass/Vol] 8.6 mg/dL Normal 8.6-10.4 [facility] Comment on above: Performed By: #### C DP #### [address] [address] Twist Maker: Francisco J Fonseca MD Chloride [Moles/Vol] 96 mmol/L Low 98-107 [facility] Comment on above: Performed By: #### C DP #### [address] [address] Twist Maker: Francisco J Fonseca MD CO2 [Moles/Vol] 22 mmol/L Normal 20-31 [facility] Comment on above: Performed By: #### C DP #### [address] [address] Twist Maker: Francicso J Fonseca MD Creatinine [Mass/Vol] 0.81 mg/dL Normal 0.70-1.20 [facility] Comment on above: Performed By: #### C DP #### [address] [address] Twist Maker: Francisco J Fonseca MD GFR, Amer >60 Normal >60 [facility] Comment on above: Performed By: #### C DP #### [address] [address] Twist Maker: Francisco J Fonseca MD GFR,non Amer >60 Normal >60 [facility] Comment on above: Performed By: #### C DP #### [address] [address] Twist Maker: Francisco J Fonseca MD Potassium [Moles/Vol] 4.1 mmol/L Normal 3.7-5.3 [facility] Comment on above: Performed By: #### C DP #### [address] [address] Twist Maker: Francisco J Fonseca MD Sodium [Moles/Vol] 130 mmol/L Low 135-144 [facility] Comment on above: Performed By: #### C DP #### [address] [address] Twist Maker: Francisco J Fonseca MD Urea nitrogen [Mass/Vol] 19 mg/dL Normal 8-23 [facility] Comment on above: Performed By: #### C DP #### [address] [address] Twist Maker: Francisco J Fonseca MD CBC AUTO DIFFon 01-02-2022 BASO # 0.0 103/ul Normal 0.0-0.1 [facility] Comment on above: Performed By: #### C MP, LIPID #### [facility] [address] [place] [address] Dr. Kylee Bunch Basophils/100 WBC (Bld) 0.2 % Normal 0.2-2.0 [facility] Comment on above: Performed By: #### C MP, LIPID #### [facility] [address] [address] [address] Kylee Bunch EO # 0.1 103/ul Normal 0.0-0.7 [facility] Comment on above: Performed By: #### C MP, LIPID #### [facility] [address] [place] [address] Dr. Kylee Bunch Eosinophils/100 WBC (Bld) 0.5 % Critically low 0.9-7.0 [facility] Comment on above: Performed By: #### C MP, LIPID #### [facility] [address] [place] [address] Dr. Kylee Bunch Erythrocyte distribution width (RBC) [Ratio] 18.5 % Critically high 11.0-15.0 [facility] Comment on above: Performed By: #### C MP, LIPID #### [facility] [address] [place] [address] Dr. Kylee Bunch Hematocrit (Bld) [Volume fraction] 37.0 % Critically low 42.0-54.0 [facility] Comment on above: Performed By: #### C MP, LIPID #### [facility] [address] [place] [address] Dr. Kylee Bunch Hemoglobin (Bld) [Mass/Vol] 12.6 g/dL Critically low 14.0-18.0 [facility] Comment on above: Performed By: #### C MP, LIPID #### [facility] [address] [place] [address] Dr. Kylee Bunch IG # 0.02 10e3/ul Normal 0.00-0.03 [facility] Comment on above: Performed By: #### C MP, LIPID #### [facility] [address] [place] [address] Dr. Kylee Bunch IG % 0.2 % Normal 0.0-0.5 [facility] Comment on above: Performed By: #### C MP, LIPID #### [facility] [address] [place] [address] Dr. Kylee Bunch LYMPH # 1.2 103/ul Normal 1.2-3.8 [facility] Comment on above: Performed By: #### C MP, LIPID #### [facility] [address] [place] [address] Dr. Kylee Bunch Lymphocytes/100 WBC (Bld) 11.3 % Critically low 20.5-60.0 [facility] Comment on above: Performed By: #### C MP, LIPID #### [facility] [address] [place] [address] Dr. Kylee Bunch MANUAL DIFF REQ NO Normal [facility] Comment on above: Performed By: #### C MP, LIPID #### [facility] [address] [place] [address] Dr. Kylee Bunch MCH (RBC) [Entitic mass] 27.1 pg Normal 25.9-34.0 [facility] Comment on above: Performed By: #### C MP, LIPID #### [facility] [address] [place] [address] Dr. Kylee Bunch MCHC (RBC) [Mass/Vol] 34.1 g/dL Normal 29.9-35.2 [facility] Comment on above: Performed By: #### C MP, LIPID #### [facility] [address] [place] [address] Dr. Kylee Bunch MCV (RBC) [Entitic vol] 79.6 fL Critically low 80.0-94.0 [facility] Comment on above: Performed By: #### C MP, LIPID #### [facility] [address] [place] [address] Dr. Kylee Bunch MONO # 0.5 103/ul Normal 0.3-0.8 [facility] Comment on above: Performed By: #### C MP, LIPID #### [facility] [address] [place] [address] Dr. Kylee Bunch Monocytes/100 WBC (Bld) 4.5 % Normal 1.7-12.0 [facility] Comment on above: Performed By: #### C MP, LIPID #### [facility] [address] [place] [address] Dr. Kylee Bunch NEUT # 8.5 103/ul Critically high 1.4-6.5 [facility] Comment on above: Performed By: #### C MP, LIPID #### [facility] [address] [place] [address] Dr. Kylee Bunch Neutrophils/100 WBC (Bld) 83.3 % Critically high 43.0-75.0 [facility] Comment on above: Performed By: #### C MP, LIPID #### [facility] [address] [place] [address] Dr. Kylee Bunch Platelet mean volume (Bld) [Entitic vol] 12.6 fL Normal 9.5-13.5 [facility] Comment on above: Performed By: #### C MP, LIPID #### [facility] [address] [address] [address] Kylee Bunch PLT 335 103/ul Normal 150-450 [facility] Comment on above: Performed By: #### C MP, LIPID #### [facility] [address] [address] [address] Kylee Bunch RBC 4.65 106/ul Critically low 4.70-6.10 [facility] Comment on above: Performed By: #### C MP, LIPID #### [facility] [address] [address] [address] Kylee Bunch WBC 10.2 103/ul Normal 4.0-11.0 [facility] Comment on above: Performed By: #### C MP, LIPID #### [facility] [address] [place], [place] [id number] Dr. Kylee Bunch CBC with Diffon 01-02-2022 Abs. Basophil 0.00 k/uL Normal 0.00-0.20 [facility] Comment on above: Performed By: #### C DP, MELVIN, BMPX, IPF #### [facility] [address] [place] [address] [phone] Twist Maker: Francisco J Fonseca MD Abs.Imm.Granulocyte 0.00 k/uL Normal 0.00-0.30 [facility] Comment on above: Performed By: #### C DP, MELVIN, BMPX, IPF #### [facility] [address] [place] [address] Twist Maker: Francisco J Fonseca MD Abs.Neutrophil (Seg) 19.47 k/uL High 1.50-8.10 [facility] Comment on above: Performed By: #### C DP, MELVIN, BMPX, IPF #### [place] [address] Twist Maker: Francisco J Fonseca MD Basophils/100 WBC (Bld) 0 % Normal 0-2 [facility] Comment on above: Performed By: #### C DP, MELVIN, BMPX, IPF #### [place] [address] Twist Maker: Francisco J Fonseca MD Eosinophils (Bld) [#/Vol] 0.00 10*3/uL Normal 0.00-0.44 [facility] Comment on above: Performed By: #### C DP, MELVIN, BMPX, IPF #### [place] [address] Twist Maker: Francisco J Fonseca MD Eosinophils/100 WBC (Bld) 0 % Low 1-4 [facility] Comment on above: Performed By: #### C DP, MELVIN, BMPX, IPF #### [place] [address] Twist Maker: Francisco J Fonseca MD Immature granulocytes/100 WBC (Bld) 0 % Normal 0 [facility] Comment on above: Performed By: #### C DP, MELVIN, BMPX, IPF #### [place] [address] Twist Maker: Francisco J Fonseca MD Lymphocytes (Bld) [#/Vol] 0.41 10*3/uL Low 1.10-3.70 [facility] Comment on above: Performed By: #### C DP, MELVIN, BMPX, IPF #### [place] [address] Twist Maker: Francisco J Fonseca MD Lymphocytes/100 WBC (Bld) 2 % Low 24-43 [facility] Comment on above: Performed By: #### C DP, MELVIN, BMPX, IPF #### [address] [address] Twist Maker: Francisco J Fonseca MD Monocytes (Bld) [#/Vol] 0.62 10*3/uL Normal 0.10-1.20 [facility] Comment on above: Performed By: #### C DP, MELVIN, BMPX, IPF #### [place] [address] Twist Maker: Francisco J Fonseca MD Monocytes/100 WBC (Bld) 3 % Normal 3-12 [facility] Comment on above: Performed By: #### C DP, MELVIN, BMPX, IPF #### [place] [address] Twist Maker: Francisco J Fonseca MD Morphology Walter (Bld) [Interp] ANISOCYTOSIS PRESENT Normal [facility] Comment on above: Performed By: #### C DP, MELVIN, BMPX, IPF #### [place] [address] Twist Maker: Francisco J Fonseca MD Neutrophil (Seg) 95 % High 36-65 [facility] Comment on above: Performed By: #### C DP, MELVIN, BMPX, IPF #### [place] [address] Twist Maker: Francisco J Fonseca MD Erythrocyte distribution width (RBC) [Ratio] 18.3 % High 11.8-14.4 [facility] Comment on above: Performed By: #### C DP, MELVIN, BMPX, IPF #### [email or web address] [address] [place] [address] Twist Maker: Francisco J Fonseca MD Hematocrit (Bld) [Volume fraction] 38.9 % Low 40.7-50.3 [facility] Comment on above: Performed By: #### C DP, MELVIN, BMPX, IPF #### [address] [address] Twist Maker: Francisco J Fonseca MD Hemoglobin (Bld) [Mass/Vol] 12.9 g/dL Low 13.0-17.0 [facility] Comment on above: Performed By: #### C DP, MELVIN, BMPX, IPF #### [address] [address] Twist Maker: Francisco J Fonseca MD MCH (RBC) [Entitic mass] 26.9 pg Normal 25.2-33.5 [facility] Comment on above: Performed By: #### C DP, MELVIN, BMPX, IPF #### [address] [address] Twist Maker: Francisco J Fonseca MD MCHC (RBC) [Mass/Vol] 33.2 g/dL Normal 28.4-34.8 [facility] Comment on above: Performed By: #### C DP, MELVIN, BMPX, IPF #### [place] [address] Twist Maker: Francisco J Fonseca MD MCV (RBC) [Entitic vol] 81.2 fL Low 82.6-102.9 [facility] Comment on above: Performed By: #### C DP, MELVIN, BMPX, IPF #### [place] [address] Twist Maker: Francisco J Fonseca MD NRBC Automated 0.0 per 100 WBC Normal 0.0 [facility] Comment on above: Performed By: #### C DP, MELVIN, BMPX, IPF #### [place] [address] Twist Maker: Francisco J Fonseca MD Platelet mean volume (Bld) [Entitic vol] 12.4 fL Normal 8.1-13.5 [facility] Comment on above: Performed By: #### C DP, MELVIN, BMPX, IPF #### [facility] [place] [address] Twist Maker: Francisco J Fonseca MD Platelets (Bld) [#/Vol] 324 10*3/uL Normal 138-453 [facility] Comment on above: Performed By: #### C DP, MELVIN, BMPX, IPF #### [facility] [address] [place] [phone] Twist Maker: Francisco J Fonseca MD RBC (Bld) [#/Vol] 4.79 10*6/uL Normal 4.21-5.77 [facility] Comment on above: Performed By: #### C DP, MELVIN, BMPX, IPF #### [email or web address] [address] [place] [phone] Twist Maker: Francisco J Fonseca MD WBC (Bld) [#/Vol] 20.5 10*3/uL High 3.5-11.3 [facility] Comment on above: Performed By: #### C DP, MELVIN, BMPX, IPF #### [facility] [address] [place] [phone] Twist Maker: Francisco J Fonseca MD CT ABD/PELV W CONon 01-03-20 CT ABD/PELV W CON EXAMINATION: CT ABD/ PELV W CON 01/02/2022. COMPARISON STUDY: None. HISTORY: Unspecified abdominal pain TECHNIQUE: 3 mm sections were obtained from the lung bases through the pubic symphysis following administration of 50 mL of Omnipaque 300. Coronal and sagittal reconstructed images were obtained. Dose reduction techniques were achieved by using automated exposure control and/or adjustment of mA and/or kV according to patient size and/or use of iterative reconstruction technique. FINDINGS: CT ABDOMEN: Mild cardiomegaly with abnormal left ventricular dilatation noted. Lung bases are grossly clear. There is no effusion. Intraperitoneal free air is identified. Background diffuse body wall edema with [id number] volume of abdominal and pelvic ascites noted. The gallbladder, spleen and pancreas are surgically absent. The adrenal glands appear unremarkable. There is a 3 mm calculus at the inferior pole of the right kidney. Multiple bilateral renal cysts are present. One of the dominant exophytic cysts at the upper pole of the right kidney for example measures 3.3 x 4.8 cm. A midpole cyst within the posterior cortex more caudally measures 2.5 cm. A midpole left renal sinus cyst for example measures 3.7 cm. One of the intracortical cysts at the midpole level for example measures 16 mm. Significant atherosclerotic change of aorta and its branches is noted. Hemodynamically significant stenoses associated with the celiac and renal arteries from heavily calcified plaque formation noted. There is mild/moderate proximal intraluminal stenosis associated with the superior mesenteric artery. Mild abdominal aortic and bilateral common iliac ectasia and tortuosity noted. CT PELVIS: There is abnormal enlargement of the prostate demonstrating intravesicular extension. The transverse diameter of the gland is 5.9 cm. Urinary bladder and seminal vesicles appear otherwise unremarkable. 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 There is abnormal collapsed and circumferential thickened appearance to the colon near the splenic flexure, image 32. The diseased segment has length of at least 4.8 cm. There is gaseous distention of the mid transverse segment proximal to this. There is partial collapse with thickened appearance to the fold pattern involving the cecum and ascending segment to the hepatic flexure also noted. Long segment thickened appearance to the small bowel is difficult to exclude. There is no evidence of pneumatosis. Morphological changes suggestive of penetrating ulceration/perforation of the proximal gastric lumen near the cardia, image #20. There is mild prominence of the gastric rugal fold pattern. Gastrojejunostomy is noted distal to this. The proximal most jejunal segments are partially collapsed. Moderate to severe multilevel lumbar spondylitic/facet arthritic changes with multilevel Schmorl's node formation noted. There is partial ankylosis with intervertebral disc calcifications and severe disc space narrowing for example at L3-L4 and L4-L5. Unilateral pars defects at the L5 level with grade 1 anterolisthesis. Chondrocalcinosis with arthritic changes, mild/moderate in severity involving SI joints and hips noted. Multilevel lumbar canal stenosis noted. Old healed lower rib fracture deformities are identified. This is seen for example involving the left 12th rib with callus formation. IMPRESSION: 1. Perforated gastric ulceration suspected at the gastric cardia with pneumoperitoneum. Significant volume of abdominal and pelvic ascites. 2. 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 3. Prior Whipple procedure, cholecystectomy and splenectomy with gastrojejunostomy. 4. Severe atherosclerosis with peripheral vascular arterial disease without aortic aneurysm/dissection. Hemodynamically significant stenoses involving mesenteric and renal arteries secondary to heavily calcified plaque formation suspected. 5. Benign-appearing bilateral renal cysts. Subcentimeter nonobstructive inferior pole right renal calculus. 6. Infectious/inflammatory enterocolitis suspected as well as mild colonic diverticular disease. Negative for bowel obstruction. 7. Prostatomegaly. Correlate with PSA level. Report called to Dr. Dobson 9:09 AM on 01/02/2022. Electronically authenticated by: ROLA HOLCOMB Date: 2022-01-02 09:27 Normal [facility] Covid-19 PCR (CVDTB)on 12-11 SARS-CoV-2 (COVID-19) RNA ANASTASIA+probe Ql (Unsp spec) Not detected Normal NOT DETECTED [facility] Comment on above: Result Comment: When diagnostic testing is negative, the possibility of a false negative should be considered in the context of a patient's recent exposures and the presence of clinical signs and symptoms consistent with SARS-CoV-2. This test is not yet approved or cleared by the [place] FDA. When there are no FDA-approved or cleared tests available, and other criteria are met, FDA can make tests available under an emergency access mechanism called an Emergency Use Authorization (EUA). The EUA for this test is supported by the [employer] of Health and Human Service's declaration that circumstances exist to justify the emergency use of in vitro diagnostics for the detection and/or diagnosis of the virus that causes COVID-19. This EUA will remain in effect for the duration of the COVID-19 declaration justifying emergency of IVDs, unless it is terminated or revoked by the FDA (after which the test may no longer be used). Performed By: #### C VDTB #### [facility] [address] [place] [id number] Kylee JACK URINE PROFILEon 2 Bilirubin Ql (U) Negative Normal NEGATIVE [facility] Comment on above: Performed By: #### C MP, LIPID #### [facility] [address] [place] [address] Dr. Kylee Bunhc Clarity (U) CLEAR Normal CLEAR [facility] Comment on above: Performed By: #### C MP, LIPID #### [facility] [address] [place] [address] Dr. Kylee Bunch Color (U) LT. YELLOW Normal YELLOW [facility] Comment on above: Performed By: #### C MP, LIPID #### [facility] [address] [place] [address] Dr. Kylee Bunch ERUAHD A micrscopic examina tion will be performed if indicated. Normal [facility] Comment on above: Performed By: #### C MP, LIPID #### [facility] [address] [place] [address] Dr. Kylee Bunch Hemoglobin Ql (U) TRACE-INTACT Abnormal NEGATIVE [facility] Comment on above: Performed By: #### C MP, LIPID #### [facility] [address] [place] [address] Dr. Kylee Bunch Ketones Ql (U) 15 mg/dl Abnormal NEGATIVE [facility] Comment on above: Performed By: #### C MP, LIPID #### [facility] [address] [place] [address] Dr. Kylee Bunch LEUKOCYTES Negative Normal NEGATIVE [facility] Comment on above: Performed By: #### C MP, LIPID #### [facility] [address] [place] [address] Dr. Kylee Bunch Nitrite Ql (U) Negative Normal NEGATIVE [facility] Comment on above: Performed By: #### C MP, LIPID #### [facility] [address] [place] [address] Dr. Kylee Bunch pH (U) 5.5 [pH] Normal 5-9 [facility] Comment on above: Performed By: #### C MP, LIPID #### [facility] [address] [place] [address] Dr. Kylee Bunch SPEC GRAVITY 1.015 Normal 1.005-<=1. 025 [facility] Comment on above: Performed By: #### C MP, LIPID #### [facility] [address] [place] [address] Dr. Kylee Bunch UA PROTEIN Negative Normal NEGATIVE/ TRACE [facility] Comment on above: Performed By: #### C MP, LIPID #### [facility] [address] [address] [address] Kylee Bunch UR MICRO IND INDICATED Normal [facility] Comment on above: Performed By: #### C MP, LIPID #### [facility] [address] [place] [address] Dr. Kylee Bunch Urobilinogen Qn (U) 0.2 {Gemini'U}/dL Normal 0.2 - 1. 0 [facility] Comment on above: Performed By: #### C MP, LIPID #### [facility] [address] [place] [address] Dr. Kylee Bunch LIPASEon 01-02-2022 Lipase [Catalytic activity/Vol] 9.0 U/L Critically low 73.0-393.0 [facility] Comment on above: Performed By: #### L IPA, MARGA, LIVER, BMP #### [facility] [address] [place] [address] Dr. Kylee Bunch LIVER PROFILEon 01-02-2022 Albumin [Mass/Vol] 3.3 g/dL Critically low 3.4-5.0 [facility] Comment on above: Performed By: #### L IPA, MARGA, LIVER, BMP #### [facility] [address] [place] [address] Dr. Kylee Bunch Albumin/Globulin [Mass ratio] 0.9 {ratio} Normal [facility] Comment on above: Performed By: #### L IPA, MARGA, LIVER, BMP #### [facility] [address] [place] [address] Dr. Kylee Bunch ALP [Catalytic activity/Vol] 116 U/L Normal 46-116 [facility] Comment on above: Performed By: #### L IPA, MARGA, LIVER, BMP #### [facility] [address] [place] [address] Dr. Kylee Bunch ALT [Catalytic activity/Vol] 21 U/L Normal 16-63 [facility] Comment on above: Performed By: #### L IPA, MARGA, LIVER, BMP #### [facility] [address] [place] [address] Dr. Kylee Bunch AST [Catalytic activity/Vol] 24 U/L Normal 15-37 [facility] Comment on above: Performed By: #### L IPA, MARGA, LIVER, BMP #### [facility] [address] [place] [address] Dr. Kylee Bunch BILI, CONJUGATED 0.1 mg/dL Normal 0.0-0.2 [facility] Comment on above: Performed By: #### L IPA, MARGA, LIVER, BMP #### [facility] [address] [place] [address] Dr. Kylee Bunch Bilirubin [Mass/Vol] 0.6 mg/dL Normal 0.2-1.0 [facility] Comment on above: Performed By: #### L IPA, MARGA, LIVER, BMP #### [facility] [address] [place] [address] Dr. Kylee Bunch Globulin (S) [Mass/Vol] 3.6 g/dL Normal [facility] Comment on above: Performed By: #### L IPA, MARGA, LIVER, BMP #### [facility] [address] [place] [address] Dr. Kylee Bunch Protein [Mass/Vol] 6.9 g/dL Normal 6.4-8.2 [facility] Comment on above: Performed By: #### L IPA, MARGA, LIVER, BMP #### [facility] [address] [place] [address] Dr. Kylee Bunch Laboratory - Chemistry and C hemistry - challengeon 01-02-2022 Glucose [Mass/Vol] 223 mg/dL [facility] Comment on above: The ADA and AACC rec ommend providing the estimated average glucose result to permit better patient understanding of their HBA1c result. Glucose [Mass/Vol] 227 mg/dL High 75 - 110 mg/dL [facility] Glucose [Mass/Vol] 290 mg/dL High 75 - 110 mg/dL [facility] Glucose [Mass/Vol] 300 mg/dL High 75 - 110 mg/dL [facility] Glucose [Mass/Vol] 323 mg/dL High 75 - 110 mg/dL [facility] Anion gap [Moles/Vol] 12 mmol/L 9 - 17 mmol/L [facility] Calcium [Mass/Vol] 8.6 mg/dL 8.6 - 10. 4 mg/dL [facility] Chloride [Moles/Vol] 96 mmol/L Low 98 - 10 7 mmol/L [facility] CO2 [Moles/Vol] 22 mmol/L 20 - 31 mmol/L [facility] Creatinine [Mass/Vol] 0.81 mg/dL 0.70 - 1.20 mg/dL [facility] GFR/1.73 sq M.predicted MDRD (S/P/Bld) [Vol rate/Area] [facility] Comment on above: Average GFR for 70 o r more years old: 75 mL/min/1.73sq m Chronic Kidney Disease: <60 mL/min/1.73sq m Kidney failure: <15 mL/min/1.73sq m eGFR calculated using average adult body mass. Additional eGFR calculator available at: http://www.[employer]/multiple_crcl_2011.htm Glucose [Mass/Vol] 452 mg/dL Critically high 70 - 9 9 mg/dL [facility] Potassium [Moles/Vol] 4.1 mmol/L 3.7 - 5.3 mmol/L [facility] Sodium [Moles/Vol] 130 mmol/L Low 135 - 144 mmol/L [facility] Urea nitrogen (BldV) [Mass/Vol] 19 mg/dL 8 - 23 mg/dL [facility] Albumin [Mass/Vol] 3.6 g/dL 3.5 - 5.2 g/dL [facility] Albumin/Globulin [Mass ratio] 1.3 {ratio} [facility] ALP (Bld) [Catalytic activity/Vol] 100 U/L 40 - 129 U/L [facility] ALT [Catalytic activity/Vol] 15 U/L 5 - 41 U/L [facility] AST [Catalytic activity/Vol] 18 U/L <40 [facility] Bilirubin [Mass/Vol] 0.45 mg/dL 0.3 - 1 .2 mg/dL [facility] Bilirubin.indirect [Mass/Vol] 0.17 mg/dL <0.31 [facility] Free PSA/Total PSA [Mass fraction] 6.4 g/dL 6.4 - 8.3 g/dL [facility] Glucose [Mass/Vol] 433 mg/dL Critically high 75 - 1 10 mg/dL [facility] Comment on above: Critical Noted Laboratory - Coagulationon 0 01-02-2022 INR Coag (Bld) [Relative time] 1.2 {INR} [facility] Comment on above: Therapeutic Range: Moderate Anticoagulant Intensity: INR = 2.0-3.0 High Anticoagulant Intensity: INR = 2.5-3.5 PT Coag (PPP) [Time] 12.5 s High [facility] Laboratory - Hematology and Cell countson 01-02-2022 HbA1c (Bld) [Mass fraction] 9.4 % High 4.0 - 6.0 % [facility] Basophils (Bld) [#/Vol] 0.00 10*3/uL [facility] Basophils/100 WBC (Bld) 0 % 0 - 2 % [facility] Eosinophils/100 WBC (Bld) 0 % Low 1 - 4 % [facility] Hematocrit (Bld) [Volume fraction] 38.9 % Low 40.7 - 50.3 % [facility] Hemoglobin (Bld) [Mass/Vol] 12.9 g/dL Low 13.0 - 17.0 g/dL [facility] Immature granulocytes/100 WBC (Bld) 0 % 0 [facility] Lymphocytes/100 WBC (Bld) 2 % Low 24 - 43 % [facility] MCH (RBC) [Entitic mass] 26.9 pg 25.2 - 33.5 pg [facility] MCHC (RBC) [Mass/Vol] 33.2 g/dL 28.4 - 34.8 g/dL [facility] MCV (RBC) [Entitic vol] 81.2 fL Low 82.6 - 102.9 fL [facility] Monocytes/100 WBC (Bld) 3 % 3 - 12 % [facility] Morphology Walter (Bld) [Interp] ANISOCYTOSIS PRESENT [facility] Platelet distribution width (Bld) [Ratio] 18.3 % High 11.8 - 14.4 % [facility] Platelet mean volume (Bld) [Entitic vol] 12.4 fL 8.1 - 13.5 fL [facility] Platelets (Bld) [#/Vol] 324 10*3/uL [facility] RBC (Bld) [#/Vol] 4.79 10*6/uL 4.21 - 5.77 m/uL [facility] Segmented neutrophils/100 WBC (Bld) 95 % High 36 - 65 % [facility] WBC (Bld) [#/Vol] 20.5 10*3/uL High [facility] Lactate, Sepsison 01-02-2022 Lactic Acid,Sep Wbld 1.7 mmol/L Normal 0.5-1.9 [facility] Comment on above: Performed By: #### C DP, MELVIN, BMPX, IPF #### [facility] [place] [address] Twist Maker: Francisco J Fonseca MD Liver Profileon 5 Albumin [Mass/Vol] 3.6 g/dL Normal 3.5-5.2 [facility] Comment on above: Performed By: #### C DP #### [facility] [address] [place], [place] [id number] Twist Maker: Francisco J Fonseca MD Albumin/Glob Ratio 1.3 Normal 1.0-2.5 [facility] Comment on above: Performed By: #### C DP #### [facility] [address] [place] [address] Twist Maker: Francisco J Fonseca MD Alkaline Phos 100 U/L Normal 40-129 [facility] Comment on above: Performed By: #### C DP #### [facility] [address] [place] [address] Twist Maker: Francisco J Fonseca MD ALT [Catalytic activity/Vol] 15 U/L Normal 5-41 [facility] Comment on above: Performed By: #### C DP #### [address] [address] Twist Maker: Francisco J Fonseca MD AST [Catalytic activity/Vol] 18 U/L Normal <40 [facility] Comment on above: Performed By: #### C DP #### [address] [address] Twist Maker: Francisco J Fonseca MD Bilirubin [Mass/Vol] 0.45 mg/dL Normal 0.3-1.2 [facility] Comment on above: Performed By: #### C DP #### [address] [address] Twist Maker: Francisco J Fonseca MD Bilirubin, Indirect 0.28 mg/dL Normal 0.00-1.00 [facility] Comment on above: Performed By: #### C DP #### [address] [address] Twist Maker: Francisco J Fonseca MD Bilirubin.indirect [Mass/Vol] 0.17 mg/dL Normal <0.31 [facility] Comment on above: Performed By: #### C DP #### [address] [address] Twist Maker: Francisco J Fonseca MD Protein [Mass/Vol] 6.4 g/dL Normal 6.4-8.3 [facility] Comment on above: Performed By: #### C DP #### [address] [address] Twist Maker: Francisco J Fonseca MD Panel Informationon 01-02 Interpretation and review of laboratory results Abnormal [facility] Interpretation and review of laboratory results Abnormal [facility] Enteric tube needs t o be advanced 10 cm. [facility] RIS CONSOLIDATED EXAMINATION: ONE SUPINE XRAY VIEW(S) OF THE ABDOMEN 01/02/2022 9:31 pm COMPARISON: CT abdomen pelvis 01/02/2022 HISTORY: ORDERING SYSTEM PROVIDED HISTORY: Confirmation of course of NG/OG/NE tube and location of tip of tube TECHNOLOGIST PROVIDED HISTORY: Confirmation of course of NG/OG/NE tube and location of tip of tube Portable?->Yes Reason for Exam: Supine port, NG placement FINDINGS: Enteric tube tip terminates the level GE junction. This needs to be advanced at least 10 cm. [facility] RIS CONSOLIDATED Eulogio Winslow MD - 01/02/2022 EXAMINATION: ONE SUPINE XRAY VIEW(S) OF THE ABDOMEN 01/02/2022 9:31 pm COMPARISON: CT abdomen pelvis 01/02/2022 HISTORY: ORDERING SYSTEM PROVIDED HISTORY: Confirmation of course of NG/OG/NE tube and location of tip of tube TECHNOLOGIST PROVIDED HISTORY: Confirmation of course of NG/OG/NE tube and location of tip of tube Portable?->Yes Reason for Exam: Supine port, NG placement FINDINGS: Enteric tube tip terminates the level GE junction. This needs to be advanced at least 10 cm. IMPRESSION: Enteric tube needs to be advanced 10 cm. [facility] Work Phone: Interpretation and review of laboratory results Abnormal [facility] Interpretation and review of laboratory results Abnormal [facility] Radiology Study observation (narrative) [facility] Work Phone: Absolute Eos # 0.00 [place] [facility] Absolute Immature Granulocyte 0.00 [facility] Absolute Lymph # 0.41 [facility] Absolute [place] # 0.62 [facility] Interpretation and review of laboratory results Abnormal [facility] NRBC Automated 0.0 0.0 per 100 WBC [facility] Segs Absolute 19.47 High [facility] Interpretation and review of laboratory results Abnormal [facility] Interpretation and review of laboratory results Abnormal [facility] Lactic Acid, Sepsis, Whole Blood 1.7 mmol/L 0.5 - 1.9 mmol/L [facility] GFR >60 >60 mL/min [facility] GFR Non- >60 >60 mL/min [facility] Interpretation and review of laboratory results Abnormal [facility] Bilirubin, Indirect 0.28 mg/dL 0.00 - 1.00 mg/dL [facility] Interpretation and review of laboratory results Abnormal [facility] No Panel InformationOrdered By: Eulogio Winslow on 01-02-2022 [facility] [employer] Work Phone: POINT OF CARE GLUCOSEon 12-11 Glucose [Mass/Vol] 408 mg/dL Critically high 74-106 [facility] Comment on above: Performed By: #### P OCGLUC #### [facility] [address] [place] [address] Dr. Kylee Bunch PROF CHEM 8 (BAS METB)on Anion gap [Moles/Vol] 16.4 mmol/L Normal [facility] Comment on above: Performed By: #### L IPA, MARGA, LIVER, BMP #### [facility] [address] [address] [address] Kylee Bunch Calcium [Mass/Vol] 8.8 mg/dL Normal 8.5-10.1 [facility] Comment on above: Performed By: #### L IPA, MARGA, LIVER, BMP #### [facility] [address] [address] [address] Kylee Bunch Chloride [Moles/Vol] 96 mmol/L Critically low 98-107 [facility] Comment on above: Performed By: #### L IPA, MARGA, LIVER, BMP #### [facility] [address] [address] [address] Kylee Bunch CO2 [Moles/Vol] 25.1 mmol/L Normal 21.0-32.0 [facility] Comment on above: Performed By: #### L IPA, MARGA, LIVER, BMP #### [facility] [address] [address] [address] Kylee Bunch Creatinine [Mass/Vol] 1.22 mg/dL Normal 0.70-1.30 [facility] Comment on above: Performed By: #### L IPA, MARGA, LIVER, BMP #### [facility] [address] [address] [address] Kylee Bunch EGFR-AF KENYAN >60 Normal >=60 [facility] Comment on above: Performed By: #### L IPA, MARGA, LIVER, BMP #### [facility] [address] [address] [address] Kylee Bunch EGFR-NON AF KENYAN 57 mL/min/1.73m2 Critically low >=60 [facility] Comment on above: Performed By: #### L IPA, MARGA, LIVER, BMP #### [facility] [address] [place] [address] Dr. Kylee Bunch Glucose [Mass/Vol] 579 mg/dL Critically high 74-106 [facility] Comment on above: Result Comment: repe ated Performed By: #### L IPA, MARGA, LIVER, BMP #### [facility] [address] [place] [address] Dr. Kylee Bunch Potassium [Moles/Vol] 4.5 mmol/L Normal 3.5-5.1 [facility] Comment on above: Performed By: #### L IPA, MARGA, LIVER, BMP #### [facility] [address] [address] [address] Kylee Bunch Sodium [Moles/Vol] 133 mmol/L Critically low 136-145 Th [facility] Comment on above: Performed By: #### L IPA, MARGA, LIVER, BMP #### [facility] [address] [address] [address] Kylee Bunch Urea nitrogen [Mass/Vol] 19.0 mg/dL Critically high 7.0-18.0 [facility] Comment on above: Performed By: #### L IPA, MARGA, LIVER, BMP #### [facility] [address] [address] [address] Kylee Bunch Urea nitrogen/Creatinine [Mass ratio] 15.6 mg/mg Normal [facility] Comment on above: Performed By: #### L IPA, MARGA, LIVER, BMP #### [facility] [address] [address] [address] Kylee Bunch PTon 01-02-2022 INR Coag (PPP) [Relative time] 1.2 {INR} Normal [facility] Comment on above: Result Comment: Therapeutic Range: Moderate Anticoagulant Intensity: INR = 2.0-3.0 High Anticoagulant Intensity: INR = 2.5-3.5 Performed By: #### C DP, MELVIN, BMPX, IPF #### [address] [id number] Twist Maker: Francisco J Fonseca MD PT Coag (PPP) [Time] 12.5 s High 9.1-12.3 [facility] Comment on above: Performed By: #### C DP, MELVIN, BMPX, IPF #### [address] [address] Twist Maker: Francisco J Fonseca MD URINE MICROSCOPIC ONLYon BACTERIA NONE SEEN Normal NONE SEEN [facility] Comment on above: Performed By: #### C MP, LIPID #### [facility] [address] [place] [address] Dr. Kylee Bunch Bacteria identified Cx Nom (U) NOT INDICATED Normal [facility] Comment on above: Performed By: #### C MP, LIPID #### [facility] [address] [place] [address] Dr. Kylee Bunch CAST NONE SEEN Normal NONE SEEN [facility] Comment on above: Performed By: #### C MP, LIPID #### [facility] [address] [place] [address] Dr. Kylee Bunch Crystals LM Nom (Urine sed) NONE SEEN Normal NONE SEEN [facility] Comment on above: Performed By: #### C MP, LIPID #### [facility] [address] [address] [address] Kylee Bunch Epithelial cells LM Ql (Urine sed) RARE Normal NONE SEEN /RARE [facility] Comment on above: Performed By: #### C MP, LIPID #### [facility] [address] [address] [address] Kylee Bunch MUCOUS NONE SEEN Normal NONE SEEN [facility] Comment on above: Performed By: #### C MP, LIPID #### [facility] [address] [address] [address] Kylee Bunch RBC 0-2 Normal 0-2 [facility] Comment on above: Performed By: #### C MP, LIPID #### [facility] [address] [place] [address] Dr. Kylee Bunch WBC NONE SEEN Normal NONE SEEN [facility] Comment on above: Performed By: #### C MP, LIPID #### [facility] [address] [place] [address] Dr. Kylee Bunch Reminderson 06-21-2019 Reminders - From: Daniella Palma CMA To: LESTER - Reminders/Recalls; Sent: 01/12/2019 11:34:41 EDT Show up: 05/12/2019 11:34:00 EDT Subject: 2018 RECALL Due Date/Time: 06/19/2019 11:34:00 EST Reminder/Recall Colonoscopy recall [address] Almeida Due 06/19/19 First Recall Letter Second Recall Letter Pt. called back and states that due to his age he is not going to have another colonoscopy mlc Normal [facility] HOSPon 06-23-2018 HOSP Patient Update (GENSMN) ASHWINI VICKERS ([id number]) 1935 MDate Time Provider Hqfrexgzhg11/13/18 MARIE JULIAN During your visit today, we recorded the following information about you:Allergies As of Date: 06/23/2018(No Known Allergies)Date Reviewed: 06/14/2018Reviewed by: Marie Julian - Fully AssessedReason for Visit: CURE 08/08/18 [Other]Primary Visit Diagnosis:Preoperative examination [Z01.818]Order(s):CONSULT TO [facility] [[id number]] Order #: [id number]: 1 TYPE + SCREEN,30 DAY [[id number]] Order #: [id number] FUTURE CONFIRM BLOOD TYPE [SQCONABO] Order #: [id number] FUTURE CBC + DIFF [SQCBCDIF] Order #: [id number] FUTURE COMP METABOLIC PANEL [SQCMP] Order #: [id number] FUTURE XR CHEST 2V FRONTAL/LAT [[id number]] Order #: [id number] FUTURE ECG COMPLETE W INTERPRETATION [ECG01] Order #: [id number] FUTURE REFER FOR ADMIT INTERVIEW [[id number]] Order #: [id number] CONSULT TO GERIATRICS [9012] Order #: [id number]: 1 CONSULT TO PATIENT EDUCATION [[id number]] Order #: [id number]: 1 NITISH WHAT TO EXPECT DURING YOUR HOSPITAL STAY [[id number]] Order #: [id number]: 1 NITISH PT ED GENERAL SURG [[id number]] Order #: [id number]: 1 NITISH PT ED MISC [[id number]] Order #: [id number]: 1 SURGICAL REQUEST - ELECTIVE [[id number]] Order #: [id number]: 1Prescriptions as of 06/23/2018 Sig: ASPIRIN 81 MG TABLET,DELAYED * Take 81 mg by mouth once parul* CETIRIZINE 10 MG TABLET Take 10 mg by mouth once parul* CHOLECALCIFEROL (VITAMIN D3) * Take 2,000 Units by mouth onc* CENTRUM SILVER ORAL Take by mouth once daily. PROBIOTIC-10 ORAL Take by mouth once daily. UBCIXL-EAWXTWFT-CLDPEJS 24,00* Take 2 capsules by mouth thre* LUTEIN-ZEAXANTHIN 25 MG-5 MG * Take by mouth once daily.Problem List As Of Date 06/23/2018 Noted Resolved IPMN (intraductal papillary mucinous neoplasm) *INVALID FOR* More...Follow-up and Disposition History RecordedEncounter Number: [id number] Status:Closed by BREANA FANG on 06/23/18 [facility] CNOVon 06-14-2018 CNOV Office Visit (GENMigdalia) ISIASHWINI PORRAS ([id number]) 1935 MDate Time Provider Buqkwfiotb09/4/18 9:30 AM MARIE JULIAN During your visit today, we recorded the following information about you: Temperature Pulse Blood pressure Weight 98.4 degrees 53/minute 182/84 70 kg Height 1.778 mMisty Thorn Hillyuli Aragon 06/14/2018 9:25 AM SignedWhat is the reason for your visit today? CONSULTWho is your referring physician? Dr. Castro.MarieAre you having poor oral intake? NOHave you had unintentional weight loss of 15 lbs/7 Kg in the last 3-6 months? NOBowels: regularWound: clean AND dryTemperature: NoDrains: Steven Montes 06/14/2018 1:32 PM SignedPancreatic Cyst HANDP [facility] [id number]/[facility]/1935Thi s consult was requested by Marie Castro, for evaluation ofpancreatic cyst(s) My final recommendations will be communicated to therealbu[facility]ering health care provider by way of the shared medical record or [facility].HPIAshwini Vickers is a 83 year old years old, male who presents with pancreaticcysts . Cysts were incidentally discovered during workup for Weight loss forapproximately 2 years, unintentional 30lbs + , occasional steatorrhea ,intermittent abdominal.WORK UP1. . First detected: CT: 04/27/2018LOCATION: Head: Yes Body/Tail: NoSEPTATIONS : YesTHICK WALLED : NoCENTRAL CALCIFICATIONS: NoPERIPHERAL CALCIFICATIONS : NoMASS COMPONENT: YesMURAL NODULE: NoCOMMUNICATION WITH MPD: YesMPD: Head: >1.0 cm Body/Tail: >1.0 cm Outside Imaging: YESCT abdomen :CT ABD/PELVIS W CON - 03/09/2017FINDINGS:LUNG BASES: 5 mm soft tissue density nodule left lower lobe axial image 10,nonspecific.LIVER: No enlargement, atrophy, abnormal density, or significant focal lesion.BILIARY: Dilated common bile duct and pancreatic ducts, 13 and 10 mmrespectively, extending down t the ampulla of Vater, stable.PANCREAS: No focal lesion.ADRENALS: No mass or enlargement.KIDNEYS: Multiple cortical cystic lesoins the larger lesions are simple cyststhe smaller lesons are too small to characterize. No hydronephrosis orobstructing nephrolithiasis.BOWEL/Mese ntery: Colonic diverticulosis. Nonobstructive bowel gas patterndisease.RETROPERITO NEUM: No mass or adenopathy.LYMPH NODES: No adenopathy.URINARY BLADDER: No visible focal wall thickening, lesion, or calculus.PELVIC ORGANS: Enlarged heterogeneous prostate gland.ABDOMINAL WALL: No mass or hernia.BONES: Degenerative spondylosisEUSDate - 04/27/2018LOCATION: Head: Yes, largest size: 3.4. Total number of cysts: 1 Body/Tail: NoSEPTATIONS : YesTHICK WALLED/HYPERVASCULAR : NoCENTRAL CALCIFICATIONS: NoPERIPHERAL CALCIFICATIONS : NoMASS COMPONENT: NoMURAL NODULE: NoCOMMUNICATION WITH MPD: YesMPD: Head: >1.0 cm Body/Tail: >1.0 cmAMPULLARY ORIFICE: NotedASPIRATION: YesCYTOLOGY: Negative MUCIN: Insufficient CEA: 24.7 AMYLASE: 80,699Results for ASHWINI VICKERS ( ) as of 06/14/2018 10:20 Ref. Range 04/27/2018 08:50Body Fluid Type (Amylase) Unknown Fluid-otherAmylase, Body Fluid Latest Ref Range: See Comment U/L 80,699 (A)Glucose, Body Fld Latest Ref Range: See Comment mg/dL <2 (A)CEA: 24.7FNA: Negative for malignant cells. Paucicellular specimen.Serum LabsNo results found for: TUNDE29-9 (U/mL)Date Value04/19/2018 61 No results found for: CHROMOANo results found for: GLUCPANCREATIC POLYPEPTIDE: Not DoneGASTRIN: Not DonePAST MEDICAL HISTORYActive Ambulatory ProblemsNo Active Ambulatory ProblemsResolved Ambulatory ProblemsNo Resolved Ambulatory ProblemsNo Additional Past Medical HistoryPancreatitis: yes , 4-5 years , admitted to the hospital , attributed topossible to EtoHColon Cancer: noPAST SURGICAL HISTORYPAST SURGICAL HISTORYProcedure Laterality Date- APPENDECTOMY HX- BACK SURGERY HX- TONSILLECTOMY HXSOCIAL HISTORYSocial HistorySubstance Use Topics- Smoking status: Former Smoker Quit date: 03/15/2018- Smokeless tobacco: Never Used- Alcohol use Yes Comment: social useCurrent tobacco use? No , ex-smoker , social smoker ( quit 2-3 months)Current alcohol use? YES , 1-2 glasses of wine , or beer prior to mealsFAMILY HISTORYNo family history on file.Pancreatitis: noPancreatic Cancer: noMEN: noColon Cancer: noREVIEW OF SYSTEMSGENERAL: Weight lossRESPIRATORY: Negative for cough, hemoptysis, wheezing, COPD, dyspnea orshortness of breathCARDIOVASCULAR: Negative for chest pain, leg swelling, hypertension, CHF orpalpitationsGI: No nausea, vomiting, or diarrheaPHYSICAL EXAMGeneral Appearance: Well appearing, alert, in no acute distress, well-hydrated,well nourished..Skin: Skin color, texture, turgor normal, no suspicious rashes or lesions.Lungs: lungs clear to auscultation. No wheezing, rhonchi, rales.Heart: RRR without murmur, gallop, or rubs. No ectopy.Abdomen: Normal abdominal exam, Abdomen soft, non-tender. Bowel sounds normal.No masses, organomegaly.Kal Vickers is a 83 year old male who presents with Mixed type IPMN.PLANWe reviewed CT EUS and blood work results in detail with Ashwini Marshallamilcar and therecommendation to proceed with a whipple and obtain intraoperative margins, mayneed a total pancreatectomy accoridngl. We discussed pancreatic cysts indetail, specifically mixed type IPMN, and the need to continue to follow thisprocess with surveillance imaging to rule out any growth of change of thecyst(s)/pancreatic duct/pancreas. Discussed importance of compliance and toconsider this as part of their health care maintenance. Ashwini Vickersdemonstrates understanding and their questions were answered to theirsatisfaction. Ashwini Vickers will follow up with their other providers asscheduled for all other medical conditions and he would like to pursue surgicalintervention in [place]. [facility] and recommend that the procedure should be done by an HPBsurgeon. Seen with Josie Méndez MD10:21 AM06/14/2018Marie Julian MD 06/14/2018 1:32 PM SignedAddendum:I have reviewed the history and physical examination obtained and documented bythe resident and I personally participated in the smyth components. I havediscussed the case and management of the patient's care. The following commentsrevise or confirm relevant smyth components of the note.CC: Pancreatic duct dilationHPI: 83 year old male with main duct IPMN v. Obstructing cystic lesion. He hasno history of pancreatitis. This was first diagnosed last year and it has grownin size. The patient has had some weight loss that is improved since he startedtaking Creon.Plan:- The patient was discussed at HPB conference and the recommendation was toproceed with surgical resection. This would entail a pancreaticoduodenectomywit h possible total pancreatectomy depending on the findings on frozen specimenof the margin.- Continue CreonApproximately 45 minutes was spent with the patient, the majority of the timewas spent counseling the patient and answering all of their questionsSIGNATURE:Andrei Julain MDHPB surgeryPager: [phone]: Referring Provider: MARIE CASTRO [[id number]]Allergies As of Date: 06/14/2018(No Known Allergies)Date Reviewed: 06/14/2018Reviewed by: Marie Julian - Fully AssessedPrimary Visit Diagnosis:IPMN (intraductal papillary mucinous neoplasm) [D49.0]Prescriptions as of 06/14/2018 Sig: [id number] 24,00* Take 2 capsules by mouth thre* CENTRUM SILVER ORAL Take by mouth once daily. CHOLECALCIFEROL (VITAMIN D3) * Take 2,000 Units by mouth onc* CETIRIZINE 10 MG TABLET Take 10 mg by mouth once parul* PROBIOTIC-10 ORAL Take by mouth once daily. LUTEIN-ZEAXANTHIN 25 MG-5 MG * Take by mouth once daily. ASPIRIN 81 MG TABLET,DELAYED * Take 81 mg by mouth once parul*Problem List As Of Date: 06/14/2018(None)Visit Notes:>> Lenka Scruggs Jun 14, 2018 9:21 AM Status: SignedWhat is the reason for your visit today? CONSULTWho is your referring physician? Dr. Castro., Marie OttAre you having poor oral intake? NOHave you had unintentional weight loss of 15 lbs/7 Kg in the last 3-6months? NOBowels: regularWound: clean AND dryTemperature: NoDrains: NoEncounter Number: [id number] Status:Closed by MARIE JULIAN MD on 06/14/18 Normal [facility] HISTORY PHYSICALon 8 HISTORY PHYSICAL HNO ID: [id number] thor: Marie Morris: (none)Author Type: PhysicianType: HANDPFiled: 06/14/2018 1:32 PMNote Text:Addendum:I have reviewed the history and physical examination obtained anddocumented by the resident and I personally participated in the keycomponents. I have discussed the case and management of the patient'scare. 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 Obstructing cystic lesion. Hehas no history of pancreatitis. This was first diagnosed last year and ithas grown in size. The patient has had some weight loss that is improvedsince he started taking Creon.Plan:- The patient was discussed at HPB conference and the recommendation wasto proceed with surgical resection. This would entail apancreaticoduodenectomy with possible total pancreatectomy depending onthe findings on frozen specimen of the margin.- Continue CreonApproximately 45 minutes was spent with the patient, the majority of thetime was spent counseling the patient and answering all of their questionsSIGNATURE:PAM [place] surgeryPager: [phone]: Normal [facility] HISTORY PHYSICAL HNO ID: [id number] thor: Josie Castellon (Res) GamaleldinService: (none)Author Type: ResidentType: HANDPFiled: 06/14/2018 1:32 PMNote Text:Pancreatic Cyst HANDP InitialSaeliezer [id number] s consult was requested by Marie Castro, for evaluation ofpancreatic cyst(s) My final recommendations will be communicated to [facility] health care provider by way of the shared medical record or USpostal services.Brown Vickers is a 83 year old years old, male who presents withpancreatic cysts . Cysts were incidentally discovered during workup forWeight loss for approximately 2 years, unintentional 30lbs + , occasionalsteatorrhea , intermittent abdominal.WORK UP1. . First detected: CT: 04/27/2018LOCATION: Head: Yes Body/Tail: NoSEPTATIONS : YesTHICK WALLED : NoCENTRAL CALCIFICATIONS: NoPERIPHERAL CALCIFICATIONS : NoMASS COMPONENT: YesMURAL NODULE: NoCOMMUNICATION WITH MPD: YesMPD: Head: >1.0 cm Body/Tail: >1.0 cm Outside Imaging: YESCT abdomen :CT ABD/PELVIS W CON - 03/09/2017FINDINGS:LUNG BASES: 5 mm soft tissue density nodule left lower lobe axial image10, nonspecific.LIVER: No enlargement, atrophy, abnormal density, or significant focallesion.BILIARY: Dilated common bile duct and pancreatic ducts, 13 and 10 mmrespectively, extending down t the ampulla of Vater, stable.PANCREAS: No focal lesion.ADRENALS: No mass or enlargement.KIDNEYS: Multiple cortical cystic lesoins the larger lesions are simplecysts the smaller lesons are too small to characterize. No hydronephrosisor obstructing nephrolithiasis.BOWEL/Mese ntery: Colonic diverticulosis. Nonobstructive bowel gaspattern disease.RETROPERITONEUM: No mass or adenopathy.LYMPH NODES: No adenopathy.URINARY BLADDER: No visible focal wall thickening, lesion, or calculus.PELVIC ORGANS: Enlarged heterogeneous prostate gland.ABDOMINAL WALL: No mass or hernia.BONES: Degenerative spondylosisEUSDate - 04/27/2018LOCATION: Head: Yes, largest size: 3.4. Total number of cysts: 1 Body/Tail: NoSEPTATIONS : YesTHICK WALLED/HYPERVASCULAR : NoCENTRAL CALCIFICATIONS: NoPERIPHERAL CALCIFICATIONS : NoMASS COMPONENT: NoMURAL NODULE: NoCOMMUNICATION WITH MPD: YesMPD: Head: >1.0 cm Body/Tail: >1.0 cmAMPULLARY ORIFICE: NotedASPIRATION: YesCYTOLOGY: Negative MUCIN: Insufficient CEA: 24.7 AMYLASE: 80,699Results for ASHWINI VICKERS ( ) as of 06/14/2018 10:20 Ref. Range 04/27/2018 08:50Body Fluid Type (Amylase) Unknown Fluid-otherAmylase, Body Fluid Latest Ref Range: See Comment U/L 80,699 (A)Glucose, Body Fld Latest Ref Range: See Comment mg/dL <2 (A)CEA: 24.7FNA: Negative for malignant cells. Paucicellular specimen.Serum LabsNo results found for: PCCGY84-0 (U/mL)Date Value04/19/2018 61 No results found for: CHROMOANo results found for: GLUCPANCREATIC POLYPEPTIDE: Not DoneGASTRIN: Not DonePAST MEDICAL HISTORYActive Ambulatory ProblemsNo Active Ambulatory ProblemsResolved Ambulatory ProblemsNo Resolved Ambulatory ProblemsNo Additional Past Medical HistoryPancreatitis: yes , 4-5 years , admitted to the hospital , attributed topossible to EtoHColon Cancer: noPAST SURGICAL HISTORYPAST SURGICAL HISTORYProcedure Laterality Date- APPENDECTOMY HX- BACK SURGERY HX- TONSILLECTOMY HXSOCIAL HISTORYSocial HistorySubstance Use Topics- Smoking status: Former Smoker Quit date: 03/15/2018- Smokeless tobacco: Never Used- Alcohol use Yes Comment: social useCurrent tobacco use? No , ex-smoker , social smoker ( quit 2-3 months)Current alcohol use? YES , 1-2 glasses of wine , or beer prior to mealsFAMILY HISTORYNo family history on file.Pancreatitis: noPancreatic Cancer: noMEN: noColon Cancer: noREVIEW OF SYSTEMSGENERAL: Weight lossRESPIRATORY: Negative for cough, hemoptysis, wheezing, COPD, dyspnea orshortness of breathCARDIOVASCULAR: Negative for chest pain, leg swelling, hypertension, CHFor palpitationsGI: No nausea, vomiting, or diarrheaPHYSICAL EXAMGeneral Appearance: Well appearing, alert, in no acute distress,well-hydrated, well nourished..Skin: Skin color, texture, turgor normal, no suspicious rashes or lesions.Lungs: lungs clear to auscultation. No wheezing, rhonchi, rales.Heart: RRR without murmur, gallop, or rubs. No ectopy.Abdomen: Normal abdominal exam, Abdomen soft, non-tender. Bowel soundsnormal. 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 We discussedpancreatic cysts in detail, specifically mixed type IPMN, and the need tocontinue to follow this process with surveillance imaging to rule out anygrowth of change of the cyst(s)/pancreatic duct/pancreas. Discussedimportance of compliance and to consider this as part of their health caremaintenance. Ashwini Vickers demonstrates understanding and theirquestions were answered to their satisfaction. Ashwini Vickers will followup with their other providers as scheduled for all other medicalconditions and he would like to pursue surgical intervention in [place].We have provided him with the name of an [facility] surgeon at [facility] that the procedure should be done by an HPB surgeon. Seen with Josie Méndez MD10:21 AM06/14/2018 Normal [facility] ANES Wilma 04-27-2018 ANES POST HNO ID: [id number] thor: Guille Manning: (none)Author Type: AnesthesiologistType: Anesthesia PostOpFiled: 04/27/2018 9:48 AMNote Text:POST ANESTHESIA EVALUATION NOTESERVICE DATE: 04/27/2018SERVICE TIME: 947DOB: 1935Vitals:There were no vitals filed for this visit.There were no vitals filed for this visit.There were no vitals filed for this visit.There were no vitals filed for this visit.There were no vitals filed for this visit.Validated Vital Signs: HR: 51; BP: 140/74; RR: 16; SpO2%: 99; Temperature:36POST ANES STATUS: No apparent anesthetic complications. The patient isappropriately hydrated with stable respiratory and cardiovascular status.Patient has safe and adequate airway control. The patient has appropriatepain relief and no significant post operative nausea or vomiting. Thepatient has achieved baseline mental status.Intra-Operative Events: No Significant Anesthesia EventsFurther assessment by Anesthesia Service: NoneOther Remarks:SIGNATURE: Guille Castillo MD PATIENT NAME: Ashwini VickersDATE: April 27, 2018 : 9:48 AM PAGER/CONTACT #: [phone] Normal [facility] Amylase,Body Fluidon 018 Amylase,Body Fluid 86036 U/L Critically abnormal See Comment [facility] Comment on above: Result Comment: (NOT E)PLEURAL FLUIDS:Amylase measurement in pleural fluid is considered a useful test fordetecting amylase-rich pleural effusions, which may be caused byexudative conditions associated with pancreatitis, esophagealrupture, malignancy, pneumonia, and liver cirrhosis. A ratio ofpleural fluid amylase to a concurrent serum amylase >1 is defined asan amylase-rich pleural effusion.PERITONEAL FLUIDS AND DRAINAGE FLUIDS:Pancreatic damage causes extravasation of amylase from the exocrinecells into the peritoneal space. In cases of pancreatitis, fluidamylase should be at least several-fold times higher in fluid ofpancreatic origin compared to concurrent serum amylase values.PANCREATIC CYST FLUID:Pancreatic cyst fluid amylase may aid in characterizing tumors andshould be interpreted along with other clinical and laboratoryinformation.References:1. Jen WONG, Shay Cutler. Body fluid analysis: clinicalutility and applicability of published studies to guideinterpretation of todays laboratory testing in serous fluids. CritRev Clin Lab Sci, 2013;50(4-5):107-124.2. CLSI. Analysis of Body Fluids in Clinical Chemistry; ApprovedGuideline. CLSI document C49-A. BRAD Alarcon: Clinical LaboratoryStandards Perry; 2007.3. Denice CAI, Chantale REAL, Tyson DJ. Use of cyst fluid CEA,CA19-9, and amylase for evaluation of pancreatic lesions. ClinicalBiochemistry. 2009;42:9022-8705.This test was developed and its performance characteristicsdetermined by [facility] ([facility]).It has not been cleared or approved by the FDA. [facility] is regulatedunder [place] as qualified to perform high-complexity testing.This test is used for clinical purposes. It should not be regarded asinvestigational or for research. Performed By: #### P T, CBCDIF, HFP, TSH, CA199 ####[place] [id number] [place], [place] [phone] Fluid Type Fluid-other Normal [facility] Comment on above: Result Comment: PANC REATIC CYST FLUID Performed By: #### P T, CBCDIF, HFP, TSH, CA199 ####[facility] [place], [place] [phone] CEA, Fluidon 04-27-2018 CEA, Fluid 24.7 ng/mL Normal [facility] Comment on above: Result Comment: (NOT E)INTERPRETIVE INFORMATION: Carcinoembryonic Antigen, FluidThe Jacques CEA electrochemiluminescent immunoassay was used.Results obtained with different assay methods or kits cannot beused interchangeably. The CEA assay value, regardless of level,should not be interpreted as evidence for the presence or absenceof malignant disease.For information on body fluid reference ranges and/or interpretiveguidance visit http://[employer]/bodyfluids/Test developed and characteristics determined by [facility]. See Compliance Statement B: [employer]/CSPerformed by [employer],[address] [place] [address] kcn.[employer], Oswaldo Tellez MD, Lab. Director Performed By: #### P T, CBCDIF, HFP, TSH, CA199 ####[facility] [address] [place] [address], [place] [phone] Source, Fluid Fluid-other Normal [facility] Comment on above: Result Comment: PANC REATIC CYST FLUID Performed By: #### P T, CBCDIF, HFP, TSH, CA199 ####[facility], [place] [phone] Glucose, Body Fluidon 2017 Glucose, Body Fluid <2 Critically abnormal See Comment [facility] Comment on above: Result Comment: Resu lt rechecked. Performed By: #### P T, CBCDIF, HFP, TSH, CA199 ####[facility] [phone] CA 19-9on 04-19-2018 CA 19-9 61 U/mL High <36 [facility] Comment on above: Result Comment: Test analyzed by the ii4b DxI method. Performed By: #### P T, CBCDIF, HFP, TSH, CA199 ####[facility] [phone] CBC and Differentialon 04-19 Abs Baso <0.03 Normal <0.11 [facility] Comment on above: Performed By: #### P T, CBCDIF, HFP, TSH, CA199 ####[facility], [place] [phone] Abs [place] 0.52 k/uL Normal <0.87 [facility] Comment on above: Performed By: #### P T, CBCDIF, HFP, TSH, CA199 ####[facility], [place] [phone] Abs Neut 3.73 k/uL Normal 1.45-7.50 [facility] Comment on above: Performed By: #### P T, CBCDIF, HFP, TSH, CA199 ####[place] [address] [place] [address], [place] [phone] Absolute nRBC <0.01 Normal <0.01 [facility] Comment on above: Performed By: #### P T, CBCDIF, HFP, TSH, CA199 ####[facility] [place] [phone] Basophils/100 WBC Auto (Bld) 0.3 % Normal [facility] Comment on above: Performed By: #### P T, CBCDIF, HFP, TSH, CA199 ####[place] [address] [address] [place] [phone] DTYPE Auto Diff Normal [facility] Comment on above: Performed By: #### P T, CBCDIF, HFP, TSH, CA199 ####[place] [address] [address] [place] [phone] Eosinophils Auto #/vol (Bld) 0.09 10*3/uL Normal <0.46 [facility] Comment on above: Performed By: #### P T, CBCDIF, HFP, TSH, CA199 ####[facility] [phone] Eosinophils/100 WBC Auto (Bld) 1.5 % Normal [facility] Comment on above: Performed By: #### P T, CBCDIF, HFP, TSH, CA199 ####[facility], [place] [phone] Erythrocyte distribution width Auto Ratio (RBC) 15.0 % Normal 11.5-15.0 [facility] Comment on above: Performed By: #### P T, CBCDIF, HFP, TSH, CA199 ####[facility], [place] [phone] Hematocrit Auto Volume Fraction (Bld) 44.6 % Normal 39.0-51.0 [facility] Comment on above: Performed By: #### P T, CBCDIF, HFP, TSH, CA199 ####[facility] [place] [phone] Hemoglobin mass conc (Bld) 13.7 g/dL Normal 13.0-17.0 [facility] Comment on above: Performed By: #### P T, CBCDIF, HFP, TSH, CA199 ####[place] [address] [address], [place] [phone] Lymphocytes Auto #/vol (Bld) 1.79 10*3/uL Normal 1.00-4.00 [facility] Comment on above: Performed By: #### P T, CBCDIF, HFP, TSH, CA199 ####[place] [address] [address], [place] [phone] Lymphocytes/100 WBC Auto (Bld) 29.0 % Normal [facility] Comment on above: Performed By: #### P T, CBCDIF, HFP, TSH, CA199 ####[place] [address] [address], [place] [phone] MCH Auto Entitic mass (RBC) 26.7 pG Normal 26.0-34.0 [facility] Comment on above: Performed By: #### P T, CBCDIF, HFP, TSH, CA199 ####[place] [address] [address], [place] [phone] MCHC Auto mass conc (RBC) 30.7 g/dL Normal 30.5-36.0 [facility] Comment on above: Performed By: #### P T, CBCDIF, HFP, TSH, CA199 ####[place] [address] [address], [place] [phone] MCV Auto Entitic volume (RBC) 86.8 fL Normal 80.0-100.0 [facility] Comment on above: Performed By: #### P T, CBCDIF, HFP, TSH, CA199 ####[facility], [place] [phone] Monocytes/100 WBC Auto (Bld) 8.4 % Normal [facility] Comment on above: Performed By: #### P T, CBCDIF, HFP, TSH, CA199 ####[facility], [place] [phone] Neutrophils/100 WBC Auto (Bld) 60.8 % Normal [facility] Comment on above: Performed By: #### P T, CBCDIF, HFP, TSH, CA199 ####[facility], [place] [phone] NRBCs 0.0 /100 WBC Normal 0 [facility] Comment on above: Performed By: #### P T, CBCDIF, HFP, TSH, CA199 ####[facility], [place] [phone] Platelet mean volume Auto Entitic volume (Bld) 10.6 fL Normal 9.0-12.7 [facility] Comment on above: Performed By: #### P T, CBCDIF, HFP, TSH, CA199 ####[facility], [place] [phone] Platelets Auto #/vol (Bld) 130 10*3/uL Low 150-400 [facility] Comment on above: Result Comment: Resu lt checked and verifiedNo clot detected. Performed By: #### P T, CBCDIF, HFP, TSH, CA199 ####[facility], [place] [phone] RBC Auto #/vol (Bld) 5.14 10*6/uL Normal 4.20-6.00 [facility] Comment on above: Performed By: #### P T, CBCDIF, HFP, TSH, CA199 ####[facility], [place] [phone] WBC Auto #/vol (Bld) 6.17 10*3/uL Normal 3.70-11.00 [facility] Comment on above: Performed By: #### P T, CBCDIF, HFP, TSH, CA199 ####[facility], [place] [phone] CNOVon 04-19-2018 CNOV Office Visit (GASTMN) ASHWINI VICKERS ([id number]) 1935 [facility] Time Provider Bcrhfkbiuu72/9/18 7:40 AM MARINO CASTILLO GASTMN During your visit today, we recorded the following information about you: Temperature Pulse Blood pressure Weight 97.7 degrees 44/minute 150/68 65.7 kg Height 1.803 ORalva Castillo MD 04/19/2018 10:06 AM SignedNew Patient/ConsultREASON FOR VISITSamclive Vickers is a 83 year old male who is scheduled for a consult at [facility] of Marie Castro MD.PCPRobert Tru Castro MD.[address] [place] [id number] COMPLAINTReferral for Pancreatic Cancer screeningWeight lossMy final recommendations will be communicated back to the requesting physicianby the way of the shared medical record, fax, or via US Mail.HISTORY OF PRESENT ILLNESSThis patient has presented with several months of unexplained weight loss 30-40pounds. There are no gastrointestinal symptoms to explain this, other thanoccasional mild mid abdominal discomfort. His appetite and food intake isnormal. Denies postprandial distress or diarrhea, or oily stools. No newmedications. Last colonoscopy 2-3 years ago and showed no polyps or masses.PERTINENT PRIOR DIAGNOSTIC TESTINGCT CHEST W CON - 03/29/2018The thyroid gland is normal. The central airways patent. Esophagus is normalcourse and caliber with air identified in the lumen. No aortic aneurysm ordissection is identified. Mild atherosclerosis of the thoracic aorta andcoronary arteries identified. Heart is not enlarged. No pericardial effusionis seen. Small mediastinal lymph nodes identified. No hilar mass oradenopathy is seen. 2 cm region of groundglass opacification in the anteriorportion of the RIGHT upper lobe is identified. No bony or soft tissueabnormality of the chest wall seen.No hepatic mass identified. Gallbladder is nondistended. There is markeddilatation of the pancreatic duct up to 11 mm. Multiple bilateral renal cystsare seen with the largest on the LEFT measuring 3.6 cm. No nephrolithiasis orobstructive uropathy seen. No aortic aneurysm identified. Atherosclerosisnoted. No retroperitoneal adenopathy identified. Irregulaity of the gastricwall identified in the fundus region. Infiltrative or malignant process notexcluded. This may also be related to under distention. There is no bowelobstruction or wall thickening. Moderate stool is in the colon. Distalcolonic diverticulosis seen without diverticulitis. Urinary bladder isunremarkable. Prostate gland is moderately enlarged. Small amount of pelvicascites identified. No pneumoperitoneum seen. Small inguinal lymph nodesidentified. No acute bony process or bony lesion is seen.ABdomen:Cystic changes in prominent pancreatic head.CT ABD/PELVIS W CON - 03/09/2017FINDINGS:LUNG BASES: 5 mm soft tissue density nodule left lower lobe axial image 10,nonspecific.LIVER: No enlargement, atrophy, abnormal density, or significant focal lesion.BILIARY: Dilated common bile duct and pancreatic ducts, 13 and 10 mmrespectively, extending down t the ampulla of Vater, stable.PANCREAS: No focal lesion.ADRENALS: No mass or enlargement.KIDNEYS: Multiple cortical cystic lesoins the larger lesions are simple cyststhe smaller lesons are too small to characterize. No hydronephrosis orobstructing nephrolithiasis.BOWEL/Mese ntery: Colonic diverticulosis. Nonobstructive bowel gas patterndisease.RETROPERITO NEUM: No mass or adenopathy.LYMPH NODES: No adenopathy.URINARY BLADDER: No visible focal wall thickening, lesion, or calculus.PELVIC ORGANS: Enlarged heterogeneous prostate gland.ABDOMINAL WALL: No mass or hernia.BONES: Degenerative spondylosisLabs: 2018Total Protein 7.2Albumin 3.9Total Bilirubin 0.6AST 19ALP 90ALT 23Globulin 3.3Cholesterol, Total 179LDL Chol, Cholesterol 98.4Cholesterol,HDL Ratio 2.4Triglycerides 28HDL Cholesterol 75VLDL Cholesterol Jaun 5.6MEDICATIONSCurrent Outpatient Prescriptions:folic acid/multivit-min/lutein (CENTRUM SILVER ORAL) Take by mouth once daily.Disp: Rfl:aspirin, enteric coated (ASPIRIN, ENTERIC COATED) 81 mg EC tablet Take 81 mg bymouth once daily. Disp: Rfl:cholecalciferol (VITAMIN D-3) 2,000 unit tablet Take 2,000 Units by mouth oncedaily. Disp: Rfl:cetirizine (ZYRTEC) 10 mg tablet Take 10 mg by mouth once daily. Disp: Rfl:Lactobac no.41/Bifidobact no.7 (PROBIOTIC-10 ORAL) Take by mouth once daily.Disp: Rfl:lutein-zeaxanthin 25-5 mg cap Take by mouth once daily. Disp: Rfl:No current facility-administered medications for this visit.ALLERGIESNonePAST MEDICAL HISTORYPreviously healthy.PAST SURGICAL HISTORYPAST SURGICAL HISTORYProcedure Laterality Date- APPENDECTOMY HX- BACK SURGERY HX- TONSILLECTOMY HXSOCIAL HISTORYSocial History Marital status: Spouse name: Years of education: Number of children:Social History Main Topics Drug use: UnknownSmoker for many years.No heavy drinking.FAMILY HISTORYNo pancreatic disease.GASTROINTESTINAL REVIEW OF SYSTEMSDifficulty swallowing / foods sticking in throat: NoHeartburn: NoChest Pain: NoFilling up quickly at meals: NoLoss of appetite: NoNausea: NoVomiting: NoAbdominal pain: NoBloody or black, bowel movements: NoConstipation: NoDiarrhea: NoVomiting blood: NoRecent change in weight: YesREVIEW OF OTHER SYSTEMSGENERAL: No weight loss, malaise or feversRESPIRATORY: Negative for cough, hemoptysis, wheezing, COPD, dyspnea orshortness of breathCARDIOVASCULAR: Negative for chest pain, leg swelling, hypertension, CHF orpalpitationsMUSCULOSKELE JENNIFER: Negative for joint pain or swelling, back pain or muscle painSKIN: Negative for lesions, rash, and itchingPSYCH: Negative for sleep disturbance, mood disorder and recent psychosocialstressorsNEURO : No history of headaches, syncope, paralysis, seizures or tremorsPHYSICAL EXAMINATIONBP 150/68 Pulse 44 Temp (Src) 97.7 (Oral) Ht 5' 11 (1.80m) Wt 144 lb12.8 oz (65.7kg) SpO2 99% BMI 20.20 kg/(m2).General appearance: cooperative, in no acute distress, thinNeurological: alert and oriented x3, exam grossly non-focal, No AsterixisEyes: conjunctivae/corneas clearOropharynx: Lips, tongue and oral mucosa normalLungs: Lungs clear to auscultation. No wheezing or ronchi.Heart: S1, S2 NormalAbdomen: Abdomen soft, scaphoid, non-tender, Bowel sounds normal, No masses, Noorganomegaly and no tenderness on palpation or percussion.Extremities: Extremities normal. No deformities, edema, or skin discolorationSkin:no rashes, lesions, or jaundiceLymph:No abnormal adenopathyAssessmentIMPRES CHRISTINE AND PLANRapid unexplained weight loss, evolving pancreatic imaging findings suggestiveof main duct IPMN or obstructing cystic neoplasm. Plan for labs and EUS forfurther evaluation. Asked him to bring disc to appointment. Patient and familyagreeable with this plan. Questions answered.Marino Castillo MDVeterans Affairs Medical Centerober 201710:36 AMTykatharina Castillo MD 04/19/2018 8:32 AM SignedExpect a call to schedule your endoscopy appointment today or tomorrow morning.If you haven't heard, call me. 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 ASPIRIN 81 MG TABLET,DELAYED * Take 81 mg by mouth once parul* CHOLECALCIFEROL (VITAMIN D3) * Take 2,000 Units by mouth onc* CETIRIZINE 10 MG TABLET Take 10 mg by mouth once parul* PROBIOTIC-10 ORAL Take by mouth once daily. LUTEIN-ZEAXANTHIN 25 MG-5 MG * Take by mouth once daily.Problem List As Of Date: 04/19/2018(None) Other instructions from your clinician: Expect a call to schedule your endoscopy appointment today or tomorrow morning. If you haven't heard, call me. My office number is [phone] Number: [id number] Status:Closed by MARINO CASTILLO MD on 04/19/18 [facility] 04-19-2018 HOSP Patient:Julio Vickers lMRN: Height:5' 11 (1.803 m)Weight:144 lb 12.8 oz (65.681 kg)Outpatient Medications as of 04/27/18:folic acid/multivit-min/lutein (CENTRUM SILVER ORAL)aspirin, enteric coated (ASPIRIN, ENTERIC COATED) 81 mg EC tabletcholecalciferol (VITAMIN D-3) 2,000 unit tabletcetirizine (ZYRTEC) 10 mg tabletLactobac no.41/Bifidobact no.7 (PROBIOTIC-10 ORAL)lutein-zeaxanthin 25-5 mg capAdmission/Clinic Administered Medications as of 04/27/18:Patient has no admission medications.Problem List:No problem list on file for this patient.Allergies:No Known AllergiesDate Verified:04/19/18Lab ValuesLab Value Units Date High LowHEMA* 44.6 % 04/19/2018 51.0 39.0Progress Notes ([facility] MAIN A30):Lana Dill LPN, LPN 04/19/2018 12:24 PM Signed----- Message from Marino Castillo sent at 04/19/2018 10:03 AM EDT -----Ange,Can you please call him and let him know the disc was received? No need to getanother copy from [facility].Thanks,Rl Bonilla, PLANISHER, PLANISHER 04/19/2018 12:26 PM SignedCalled pt to let him know the cd was received and no need to get a copy.Progress Notes ([facility] MAIN A30):Marino Castillo MD 04/19/2018 10:06 AM SignedNew Patient/ConsultREASON FOR VISITSkary Vickers is a 83 year old male who is scheduled for a consult at [facility] of Marie Castro MD.PCPRobert Tru Castro MD.[address] COMPLAINTReferral for Pancreatic Cancer screeningWeight lossMy final recommendations will be communicated back to the requesting physicianby the way of the shared medical record, fax, or via US Mail.HISTORY OF PRESENT ILLNESSThis patient has presented with several months of unexplained weight loss 30-40pounds. There are no gastrointestinal symptoms to explain this, other thanoccasional mild mid abdominal discomfort. His appetite and food intake isnormal. Denies postprandial distress or diarrhea, or oily stools. No newmedications. Last colonoscopy 2-3 years ago and showed no polyps or masses.PERTINENT PRIOR DIAGNOSTIC TESTINGCT CHEST W CON - 03/29/2018The thyroid gland is normal. The central airways patent. Esophagus is normalcourse and caliber with air identified in the lumen. No aortic aneurysm ordissection is identified. Mild atherosclerosis of the thoracic aorta andcoronary arteries identified. Heart is not enlarged. No pericardial effusionis seen. Small mediastinal lymph nodes identified. No hilar mass or adenopathyis seen. 2 cm region of groundglass opacification in the anterior portion ofthe RIGHT upper lobe is identified. No bony or soft tissue abnormality of thechest wall seen.No hepatic mass identified. Gallbladder is nondistended. There is markeddilatation of the pancreatic duct up to 11 mm. Multiple bilateral renal cystsare seen with the largest on the LEFT measuring 3.6 cm. No nephrolithiasis orobstructive uropathy seen. No aortic aneurysm identified. Atherosclerosisnoted. No retroperitoneal adenopathy identified. Irregulaity of the gastricwall identified in the fundus region. Infiltrative or malignant process notexcluded. This may also be related to under distention. There is no bowelobstruction or wall thickening. Moderate stool is in the colon. Distalcolonicdiverticulosi s seen without diverticulitis. Urinary bladder isunremarkable. Prostate gland is moderately enlarged. Small amount of pelvicascites identified. No pneumoperitoneum seen. Small inguinal lymph nodesidentified. No acute bony process or bony lesion is seen.ABdomen:Cystic changes in prominent pancreatic head.CT ABD/PELVIS W CON - 03/09/2017FINDINGS:LUNG BASES: 5 mm soft tissue density nodule left lower lobe axial image 10,nonspecific.LIVER: No enlargement, atrophy, abnormal density, or significant focal lesion.BILIARY: Dilated common bile duct and pancreatic ducts, 13 and 10 mmrespectively, extending down t the ampulla of Vater, stable.PANCREAS: No focal lesion.ADRENALS: No mass or enlargement.KIDNEYS: Multiple cortical cystic lesoins the larger lesions are simple cyststhe smaller lesons are too small to characterize. No hydronephrosis orobstructing nephrolithiasis.BOWEL/Mese ntery: Colonic diverticulosis. Nonobstructive bowel gas patterndisease.RETROPERITO NEUM: No mass or adenopathy.LYMPH NODES: No adenopathy.URINARY BLADDER: No visible focal wall thickening, lesion, or calculus.PELVIC ORGANS: Enlarged heterogeneous prostate gland.ABDOMINAL WALL: No mass or hernia.BONES: Degenerative spondylosisLabs: 2018Total Protein 7.2Albumin 3.9Total Bilirubin 0.6AST 19ALP 90ALT 23Globulin 3.3Cholesterol, Total 179LDL Chol, Cholesterol 98.4Cholesterol,HDL Ratio 2.4Triglycerides 28HDL Cholesterol 75VLDL Cholesterol Jaun 5.6MEDICATIONSCurrent Outpatient Prescriptions:folic acid/multivit-min/lutein (CENTRUM SILVER ORAL) Take by mouth once daily.Disp: Rfl:aspirin, enteric coated (ASPIRIN, ENTERIC COATED) 81 mg EC tablet Take 81 mg bymouth once daily. Disp: Rfl:cholecalciferol (VITAMIN D-3) 2,000 unit tablet Take 2,000 Units by mouth oncedaily. Disp: Rfl:cetirizine (ZYRTEC) 10 mg tablet Take 10 mg by mouth once daily. Disp: Rfl:Lactobac no.41/Bifidobact no.7 (PROBIOTIC-10 ORAL) Take by mouth once daily.Disp: Rfl:lutein-zeaxanthin 25-5 mg cap Take by mouth once daily. Disp: Rfl:No current facility-administered medications for this visit.ALLERGIESNonePAST MEDICAL HISTORYPreviously healthy.PAST SURGICAL HISTORYPAST SURGICAL HISTORYProcedure Laterality Date- APPENDECTOMY HX- BACK SURGERY HX- TONSILLECTOMY HXSOCIAL HISTORYSocial History Marital status: Spouse name: Years of education: Number of children:Social History Main Topics Drug use: UnknownSmoker for many years.No heavy drinking.FAMILY HISTORYNo pancreatic disease.GASTROINTESTINAL REVIEW OF SYSTEMSDifficulty swallowing / foods sticking in throat: NoHeartburn: NoChest Pain: NoFilling up quickly at meals: NoLoss of appetite: NoNausea: NoVomiting: NoAbdominal pain: NoBloody or black, bowel movements: NoConstipation: NoDiarrhea: NoVomiting blood: NoRecent change in weight: YesREVIEW OF OTHER SYSTEMSGENERAL: No weight loss, malaise or feversRESPIRATORY: Negative for cough, hemoptysis, wheezing, COPD, dyspnea orshortness of breathCARDIOVASCULAR: Negative for chest pain, leg swelling, hypertension, CHF orpalpitationsMUSCULOSKELE JENNIFER: Negative for joint pain or swelling, back pain or muscle painSKIN: Negative for lesions, rash, and itchingPSYCH: Negative for sleep disturbance, mood disorder and recent psychosocialstressorsNEURO : No history of headaches, syncope, paralysis, seizures or tremorsPHYSICAL EXAMINATIONBP 150/68 Pulse 44 Temp (Src) 97.7 (Oral) Ht 5' 11 (1.80m) Wt 144 lb12.8 oz (65.7kg) SpO2 99% BMI 20.20 kg/(m2).General appearance: cooperative, in no acute distress, thinNeurological: alert and oriented x3, exam grossly non-focal, No AsterixisEyes: conjunctivae/corneas clearOropharynx: Lips, tongue and oral mucosa normalLungs: Lungs clear to auscultation. No wheezing or ronchi.Heart: S1, S2 NormalAbdomen: Abdomen soft, scaphoid, non-tender, Bowel sounds normal, No masses, Noorganomegaly and no tenderness on palpation or percussion.Extremities: Extremities normal. No deformities, edema, or skin discolorationSkin:no rashes, lesions, or jaundiceLymph:No abnormal adenopathyAssessmentIMPRES CHRISTINE AND PLANRapid unexplained weight loss, evolving pancreatic imaging findings suggestiveof main duct IPMN or obstructing cystic neoplasm. Plan for labs and EUS forfurther evaluation. Asked him to bring disc to appointment. Patient and familyagreeable with this plan. Questions answered.Marino Castillo MDOctober 201710:36 AMPrevious VersionMarino Castillo MD 04/19/2018 8:32 AM SignedExpect a call to schedule your endoscopy appointment today or tomorrow morning.If you haven't heard, call me. My office number is [phone] Normal [facility] Hepatic Functn Panelon 04-19 Albumin mass conc 4.3 g/dL Normal 3.9-4.9 [facility] Comment on above: Performed By: #### P T, CBCDIF, HFP, TSH, CA199 ####[facility] [address], [place] [phone] ALP enzyme act/vol 83 U/L Normal 38-113 [facility] Comment on above: Performed By: #### P T, CBCDIF, HFP, TSH, CA199 ####[facility] [address], [place] [phone] ALT enzyme act/vol 12 U/L Normal 10-54 [facility] Comment on above: Performed By: #### P T, CBCDIF, HFP, TSH, CA199 ####[facility] [address], [place] [phone] AST enzyme act/vol 18 U/L Normal 14-40 [facility] Comment on above: Performed By: #### P T, CBCDIF, HFP, TSH, CA199 ####[facility] [address], [place] [phone] Bilirubin mass conc 0.3 mg/dL Normal 0.2-1.3 [facility] Comment on above: Performed By: #### P T, CBCDIF, HFP, TSH, CA199 ####[place] [id number] [place], [place] [phone] Bilirubin,Conjugated <0.2 Normal <0.2 [facility] Comment on above: Performed By: #### P T, CBCDIF, HFP, TSH, CA199 ####[place] [address] [place], [place] [phone] Protein mass conc 6.9 g/dL Normal 6.3-8.0 [facility] Comment on above: Performed By: #### P T, CBCDIF, HFP, TSH, CA199 ####[address] [phone] Protimeon 04-19-2018 INR Coag RelTime (Bld) 1.0 {INR} Normal 0.9-1.3 [facility] Comment on above: Result Comment: Robina min K Antagonist (VKA) Therapeutic Range: INR 2 to 3 (Target INR of 2.5)Note: For patients treated with VKA drugs, such as warfarin, the [place] [employer] 2012 Guideline recommends a therapeutic INR range of 2 to 3 (target INR of 2.5). This recommendation includes high-risk patients with antiphospholipid syndrome with previous arterial or venous thromboembolism, current-generation mechanical or bioprosthetic aortic heart valve replacement.Note: Patients with mechanical aortic valve replacement and additional risk factors for thromboembolic events (atrial fibrillation, previous thromboembolism, LV dysfunction, hypercoagulable conditions) or an older generation mechanical AVR (i.e., ball in-Cage) or any mechanical MVR should have a INR therapeutic range of 2.5 to 3.5 (target INR of 3).Ariadne GH, et al. Chest 2012, 141:7S-47SJames PRINCE et al. [facility] 2017, 70: 252-289 Performed By: #### P T, CBCDIF, HFP, TSH, CA199 ####[place] [id number] [place], [place] [phone] PT Sec 10.9 sec Normal 9.7-13.0 [facility] Comment on above: Performed By: #### P T, CBCDIF, HFP, TSH, CA199 ####[facility] [address] [place], [place] [phone] TSHon 04-19-2018 Thyrotropin Qn 0.874 uU/mL Normal 0.400-5.50 0 [facility] Comment on above: Performed By: #### P T, CBCDIF, HFP, TSH, CA199 ####[facility] [place], [place] [phone] PROGRESSon 04-11-2018 Protein mass conc HNO ID: [id number] thor: Marino Cummings: (none)Author Type: PhysicianType: Progress NotesFiled: 04/19/2018 10:06 AMNote Text:New Patient/ConsultREASON FOR Jas Vickers is a 83 year old male who is scheduled for a consult at [facility] Marie Castro MD.PCPRobert Tru Castro MD.[facility] [address] COMPLAINTReferral for Pancreatic Cancer screeningWeight lossMy final recommendations will be communicated back to the requestingphysician by the way of the shared medical record, fax, or via US Mail.HISTORY OF PRESENT ILLNESSThis patient has presented with several months of unexplained weight yitv09-48 pounds. There are no gastrointestinal symptoms to explain this,other than occasional mild mid abdominal discomfort. His appetite and foodintake is normal. Denies postprandial distress or diarrhea, or oilystools. No new medications. Last colonoscopy 2-3 years ago and showed nopolyps or masses.PERTINENT PRIOR DIAGNOSTIC TESTINGCT CHEST W CON - 03/29/2018The thyroid gland is normal. The central airways patent. Esophagus isnormal course and caliber with air identified in the lumen. No aorticaneurysm or dissection is identified. Mild atherosclerosis of thethoracic aorta and coronary arteries identified. Heart is not enlarged.No pericardial effusion is seen. Small mediastinal lymph nodesidentified. No hilar mass or adenopathy is seen. 2 cm region ofgroundglass opacification in the anterior portion of the RIGHT upper lobeis identified. No bony or soft tissue abnormality of the chest wall seen.No hepatic mass identified. Gallbladder is nondistended. There is markeddilatation of the pancreatic duct up to 11 mm. Multiple bilateral renalcysts are seen with the largest on the LEFT measuring 3.6 cm. Nonephrolithiasis or obstructive uropathy seen. No aortic aneurysmidentified. Atherosclerosis noted. No retroperitoneal adenopathyidentified. Irregulaity of the gastric wall identified in the fundusregion. Infiltrative or malignant process not excluded. This may also berelated to under distention. There is no bowel obstruction or wallthickening. Moderate stool is in the colon. Distal colonicdiverticulosis seen without diverticulitis. Urinary bladder isunremarkable. Prostate gland is moderately enlarged. Small amount ofpelvic ascites identified. No pneumoperitoneum seen. Small inguinallymph nodes identified. No acute bony process or bony lesion is seen.ABdomen:Cystic changes in prominent pancreatic head.CT ABD/PELVIS W CON - 03/09/2017FINDINGS:LUNG BASES: 5 mm soft tissue density nodule left lower lobe axial image10, nonspecific.LIVER: No enlargement, atrophy, abnormal density, or significant focallesion.BILIARY: Dilated common bile duct and pancreatic ducts, 13 and 10 mmrespectively, extending down t the ampulla of Vater, stable.PANCREAS: No focal lesion.ADRENALS: No mass or enlargement.KIDNEYS: Multiple cortical cystic lesoins the larger lesions are simplecysts the smaller lesons are too small to characterize. No hydronephrosisor obstructing nephrolithiasis.BOWEL/Mese ntery: Colonic diverticulosis. Nonobstructive bowel gaspattern disease.RETROPERITONEUM: No mass or adenopathy.LYMPH NODES: No adenopathy.URINARY BLADDER: No visible focal wall thickening, lesion, or calculus.PELVIC ORGANS: Enlarged heterogeneous prostate gland.ABDOMINAL WALL: No mass or hernia.BONES: Degenerative spondylosisLabs: 2018Total Protein 7.2Albumin 3.9Total Bilirubin 0.6AST 19ALP 90ALT 23Globulin 3.3Cholesterol, Total 179LDL Chol, Cholesterol 98.4Cholesterol,HDL Ratio 2.4Triglycerides 28HDL Cholesterol 75VLDL Cholesterol Jaun 5.6MEDICATIONSCurrent Outpatient Prescriptions:folic acid/multivit-min/lutein (CENTRUM SILVER ORAL) Take by mouth oncedaily. Disp: Rfl:aspirin, enteric coated (ASPIRIN, ENTERIC COATED) 81 mg EC tablet Take 81mg by mouth once daily. Disp: Rfl:cholecalciferol (VITAMIN D-3) 2,000 unit tablet Take 2,000 Units by mouthonce daily. Disp: Rfl:cetirizine (ZYRTEC) 10 mg tablet Take 10 mg by mouth once daily. Disp:Rfl:Lactobac no.41/Bifidobact no.7 (PROBIOTIC-10 ORAL) Take by mouth oncedaily. Disp: Rfl:lutein-zeaxanthin 25-5 mg cap Take by mouth once daily. Disp: Rfl:No current facility-administered medications for this visit.ALLERGIESNonePAST MEDICAL HISTORYPreviously healthy.PAST SURGICAL HISTORYPAST SURGICAL HISTORYProcedure Laterality Date- APPENDECTOMY HX- BACK SURGERY HX- TONSILLECTOMY HXSOCIAL HISTORYSocial History Marital status: Spouse name: Years of education: Number of children:Social History Main Topics Drug use: UnknownSmoker for many years.No heavy drinking.FAMILY HISTORYNo pancreatic disease.GASTROINTESTINAL REVIEW OF SYSTEMSDifficulty swallowing / foods sticking in throat: NoHeartburn: NoChest Pain: NoFilling up quickly at meals: NoLoss of appetite: NoNausea: NoVomiting: NoAbdominal pain: NoBloody or black, bowel movements: NoConstipation: NoDiarrhea: NoVomiting blood: NoRecent change in weight: YesREVIEW OF OTHER SYSTEMSGENERAL: No weight loss, malaise or feversRESPIRATORY: Negative for cough, hemoptysis, wheezing, COPD, dyspnea orshortness of breathCARDIOVASCULAR: Negative for chest pain, leg swelling, hypertension, CHFor palpitationsMUSCULOSKELETA L: Negative for joint pain or swelling, back pain or musclepainSKIN: Negative for lesions, rash, and itchingPSYCH: Negative for sleep disturbance, mood disorder and recentpsychosocial stressorsNEURO: No history of headaches, syncope, paralysis, seizures or tremorsPHYSICAL EXAMINATIONBP 150/68 Pulse 44 Temp (Src) 97.7 (Oral) Ht 5' 11 (1.80m) Wt 144lb 12.8 oz (65.7kg) SpO2 99% BMI 20.20 kg/(m2).General appearance: cooperative, in no acute distress, thinNeurological: alert and oriented x3, exam grossly non-focal, No AsterixisEyes: conjunctivae/corneas clearOropharynx: Lips, tongue and oral mucosa normalLungs: Lungs clear to auscultation. No wheezing or ronchi.Heart: S1, S2 NormalAbdomen: Abdomen soft, scaphoid, non-tender, Bowel sounds normal, Nomasses, No organomegaly and no tenderness on palpation or percussion.Extremities: Extremities normal. No deformities, edema, or skindiscolorationSkin:no rashes, lesions, or jaundiceLymph:No abnormal adenopathyAssessmentIMPRES CHRISTINE AND PLANRapid unexplained weight loss, evolving pancreatic imaging findingssuggestive of main duct IPMN or obstructing cystic neoplasm. Plan forlabs and EUS for further evaluation. Asked him to bring disc toappointment. Patient and family agreeable with this plan. Questionsanswered.Marino Castillo MDOctober 201710:36 AM Normal [facility] CT OUTSIDE CD DICOM IMPORT - NBNRon 03-29-2018 CT OUTSIDE CD DICOM IMPORT -NBNR Images were obtained outside of [facility] [id number] Normal [facility] CT-CT abdomen pelvis wo/w co n IMPORTon 03-29-2018 CT-CT abdomen pelvis wo/w con IMPORT Images were obtained outside of [facility] [id number] Normal [facility] Vital Signs Date Time Vital Sign Value Performing Clinician Facility 08-16-2023 14:07-0500 Body height 177.8 cm Sammy AYALA Work Phone: [facility] 08-16-2023 14:07-0500 Body mass index (BMI) [Ratio] 20.09 kg/m2 Sammy Wolff APRN-KALANI Work Phone: [facility] 08-16-2023 14:07-0500 Body weight 63.5 kg Sammy Wolff [employer] Work Phone: [facility] 08-16-2023 14:07-0500 Diastolic blood pressure 80 mm[Hg] Sammy Wolff [employer] Work Phone: [facility] 08-16-2023 14:07-0500 Heart rate 72 /min Sammy Wolff [employer] Work Phone: [facility] 08-16-2023 14:07-0500 Systolic blood pressure 134 mm[Hg] Sammy Wolff [employer] Work Phone: [facility] 07-16-2023 22:45-0500 Diastolic blood pressure 95 mm[Hg] DO Marie Yunk Work Phone: [facility] 07-16-2023 22:45-0500 Heart rate 69 /min DO Marie Jamak Work Phone: [facility] 07-16-2023 22:45-0500 Respiratory rate 16 /min DO Marie Jamak Work Phone: [facility] 07-16-2023 22:45-0500 SaO2% (BldA) [Mass fraction] 98 % DO Marie Xavichak Work Phone: [facility] 07-16-2023 22:45-0500 Systolic blood pressure 164 mm[Hg] DO Marie Xavichak Work Phone: [facility] 07-16-2023 13:24-0500 Body height 177.8 cm DO Marie Xavichak Work Phone: [facility] 07-16-2023 13:24-0500 Body temperature 96.7 [degF] DO Marie Xavichak Work Phone: [facility] 07-16-2023 13:24-0500 Body weight 63.95 kg DO Marie Jamak Work Phone: [facility] 05-25-2023 13:41-0500 Diastolic blood pressure 88 mm[Hg] Adrián Davis DO Work Phone: [facility] 05-25-2023 13:41-0500 Systolic blood pressure 136 mm[Hg] Adrián Davis DO Work Phone: [facility] 05-25-2023 13:37-0500 Body height 177.8 cm Adrián Davis DO Work Phone: [facility] 05-25-2023 13:37-0500 Body mass index (BMI) [Ratio] 19.51 kg/m2 Adrián Davis DO Work Phone: [facility] 05-25-2023 13:37-0500 Body weight 61.69 kg Adrián Davis DO Work Phone: [facility] 05-25-2023 13:37-0500 Heart rate 70 /min Adrián Davis DO Work Phone: [facility] 05-08-2023 10:33-0400 Diastolic blood pressure 85 mm[Hg] DO Marie Vaschak Work Phone: [facility] 05-08-2023 10:33-0400 Heart rate 97 /min DO Marie Xavichak Work Phone: [facility] 05-08-2023 10:33-0400 Respiratory rate 18 /min DO Marie Xavichak Work Phone: [facility] 05-08-2023 10:33-0400 Systolic blood pressure 156 mm[Hg] DO Marie Vaschak Work Phone: [facility] 05-08-2023 05:00-0400 Body temperature 98.8 [degF] DO Marie Vaschak Work Phone: [facility] 05-08-2023 05:00-0400 SaO2% (BldA) [Mass fraction] 97 % DO Marie Vaschak Work Phone: [facility] 05-04-2023 11:00-0400 Body height 177.8 cm DO Marie Vaschak Work Phone: [facility] 05-03-2023 16:44-0400 Body weight 66.4 kg DO Marie Jamak Work Phone: [facility] 05-03-2023 11:48-0400 Body temperature 98.1 [degF] DO Marie Jamak Work Phone: [facility] 05-03-2023 11:48-0400 Diastolic blood pressure 77 mm[Hg] DO Marie Jamak Work Phone: [facility] 05-03-2023 11:48-0400 Heart rate 55 /min DO Marie Yunk Work Phone: [facility] 05-03-2023 11:48-0400 Respiratory rate 18 /min DO Marie Castro Work Phone: [facility] 05-03-2023 11:48-0400 SaO2% (BldA) [Mass fraction] 99 % DO Marie Matthew Work Phone: [facility] 05-03-2023 11:48-0400 Systolic blood pressure 146 mm[Hg] DO Marie Castro Work Phone: [facility] 05-03-2023 05:40-0400 Body weight 67.6 kg DO Marie Castro Work Phone: [facility] 05-02-2023 00:00-0400 Inhaled oxygen flow rate 6 L/min DO Marie Matthew Work Phone: [facility] 04-30-2023 15:31-0400 Body mass index (BMI) [Ratio] 18.8 kg/m2 DO Marie Jamak Work Phone: [facility] 04-30-2023 15:25-0400 Body height 180.34 cm DO Marie Jamak Work Phone: [facility] 04-28-2023 16:32-0400 Heart rate 63 /min DO Marie Xavichak Work Phone: [facility] 04-28-2023 16:24-0400 Diastolic blood pressure 83 mm[Hg] DO Marie Castro Work Phone: [facility] 04-28-2023 16:24-0400 Respiratory rate 18 /min DO Marie Castro Work Phone: [facility] 04-28-2023 16:24-0400 SaO2% (BldA) [Mass fraction] 98 % DO Marie Castro Work Phone: [facility] 04-28-2023 16:24-0400 Systolic blood pressure 167 mm[Hg] DO Marie Castro Work Phone: [facility] 04-28-2023 13:34-0400 Body temperature 97.2 [degF] DO Marie Castro Work Phone: [facility] 04-28-2023 12:19-0400 Body height 180.34 cm DO Marie Castro Work Phone: [facility] 04-28-2023 12:19-0400 Body weight 64.41 kg DO Marie Castro Work Phone: [facility] 01-07-2022 09:35-0400 Diastolic blood pressure 95 mm[Hg] Gray Ross MD Work Phone: [facility] [employer] 01-07-2022 09:35-0400 Systolic blood pressure 160 mm[Hg] Gray Ross MD Work Phone: [facility] [employer] 01-07-2022 07:46-0400 Body temperature 97.81 [degF] Gray Ross MD Work Phone: [facility] [employer] 01-07-2022 07:46-0400 Heart rate 64 /min Gray Ross MD Work Phone: [facility] [employer] 01-07-2022 07:46-0400 Respiratory rate 15 /min Gray Ross MD Work Phone: [employer] 01-07-2022 07:46-0400 SaO2% (BldA) [Mass fraction] 98 % Gray Ross MD Work Phone: [facility] [employer] 01-03-2022 04:00-0400 Body height 177.8 cm Gray Ross MD Work Phone: [facility] [employer] 01-03-2022 04:00-0400 Body mass index (BMI) [Ratio] 20.81 kg/m2 Gray Ross MD Work Phone: [facility] [employer] 01-03-2022 04:00-0400 Body weight 65.8 kg Gray Ross MD Work Phone: [facility] [employer] 04-27-2018 10:48-0400 Body mass index (BMI) [Ratio] MARINO CASTILLO [facility] Encounters Encounter Date Encounter Type Care Provider Facility Start: 08-16-2023 End: 08-16-2023 ambulatory SAMMY Skinner WOLFF [facility] [employer] Other Start: 08-16-2023 End: 08-16-2023 Office outpatient visit 15 minutes Sammy Skinner Wolff [employer] Work Phone: [facility] Comment on above: Cardiomyopathy, isch emic (Primary Dx); ASHD (arteriosclerotic heart disease); BMI 20.0-20.9, adult; Orthopnea Start: 08-16-2023 Telephone encounter Anat JENKINS [facility] Start: 07-27-2023 End: 07-27-2023 ambulatory Marie Castro Facility:[facility] Start: 07-27-2023 End: 07-27-2023 ambulatory DO Marie Xavijorge Work Phone: [facility] Work Phone: Start: 07-27-2023 End: 07-27-2023 Patient encounter procedure DO Marie Xavijorge Work Phone: [facility] Start: 07-16-2023 End: 07-17-2023 ambulatory Federico Saúl Davis Facility:[facility] Start: 07-16-2023 End: 07-16-2023 Admission to same day surgery center DO Marie Castro Work Phone: [facility]-[employer] Work Phone: Start: 07-16-2023 End: 07-16-2023 ambulatory DO Marie Castro Work Phone: [facility] Work Phone: Start: 07-01-2023 ambulatory None Provider Facility: [facility] Start: 06-29-2023 ambulatory None Provider Facility: [facility] Start: 06-23-2023 End: 06-23-2023 ambulatory [facility] Ambulatory Start: 06-22-2023 End: 06-22-2023 ambulatory Ashwini Conrad Other [employer] Other Start: 06-22-2023 Telephone encounter [facility] Start: 06-11-2023 End: 06-11-2023 ambulatory Ashwini Conrad Facility:[facility] Start: 06-11-2023 End: 06-11-2023 ambulatory DO Marie Castro Work Phone: [facility] Work Phone: Start: 06-11-2023 End: 06-11-2023 Patient encounter procedure DO Marie Castro Work Phone: [facility] Start: 06-02-2023 End: 06-09-2023 ambulatory UNKNOWN PROVIDER Facility:[facility] Start: 05-26-2023 Telephone encounter [facility] Start: 05-26-2023 End: 05-27-2023 ambulatory MARIE CASTRO [facility] Work Phone: Start: 05-26-2023 End: 05-26-2023 Patient encounter procedure DO Marie Castro Work Phone: [facility] Start: 05-25-2023 End: 05-25-2023 ambulatory [facility] Ambulatory Start: 05-25-2023 End: 05-25-2023 Office consultation new/estab patient 60 min Adrián Davis DO Work Phone: [facility] Comment on above: NSTEMI (non-ST eleva robert myocardial infarction) ([facility]/HCC) (Primary Dx); Abnormal stress test; ASHD (arteriosclerotic heart disease); Essential hypertension; Diabetes mellitus type II, non insulin dependent (CMS/[facility]); Closed fracture of right hip, initial encounter ([facility]) Start: 05-21-2023 Postop follow up vis it related to original px [facility] Start: 05-21-2023 End: 05-21-[address] [facility] [employer] Other Start: 05-21-2023 End: 05-21-2023 Patient encounter procedure DO Marie Castro Work Phone: [facility] Start: 05-03-2023 End: 05-08-2023 Evaluation and management of inpatient Fredi Medrano Facility:[facility] Start: 05-03-2023 End: 05-08-2023 Evaluation and management of inpatient DO Marie Castro Work Phone: [facility] Work Phone: Start: 04-28-2023 End: 05-03-2023 Evaluation and management of inpatient Humberto Diaz Facility:[facility] Start: 04-28-2023 End: 05-03-2023 Evaluation and management of inpatient DO Marie Castro Work Phone: [facility] Work Phone: Start: 04-23-2023 End: 04-24-2023 ambulatory None Provider Facility:[facility] Start: 06-05-2022 End: 06-06-[address] MARIE CASTRO Facility:[facility] Start: 05-18-2022 Encounter for other specified special examinations DR MARIE CASTRO [facility] Start: 05-14-2022 End: 05-15-[address] MARIE CASTRO Facility:[facility] Start: 05-14-2022 End: 05-15-2022 Encounter for other specified special examinations DR MARIE CASTRO Facility:[facility] Start: 01-02-2022 End: 01-07-2022 Evaluation and management of inpatient PAUL CONN [facility] Start: 01-02-2022 End: 01-07-2022 Evaluation and management of inpatient Gray Ross MD Work Phone: [id number] Comment on above: Acute gastric ulcer with perforation (HCC) (Primary Dx); Gastric perforation (HCC) Start: 01-02-2022 End: 01-02-[address] SALVADOR NARANJO Facility:[facility] Start: 06-14-2018 End: 06-15-2018 Patient encounter procedure MARIE JULIAN (FEL) [facility] Start: 04-27-2018 End: 04-27-2018 Patient encounter procedure MARINO CASTILLO [facility] Start: 04-19-2018 End: 04-20-2018 Patient encounter procedure MARINO Skinner CASTILLO [facility] Procedures Date Procedure Procedure Detail Performing Clinician Start: 08-16-2023 FOLLOW UP IN CARDIOLOGY ADRIÁN DAVIS Start: 07-27-2023 Plain X-ray of right hip DO Marie Castro Work Phone: Start: 07-16-2023 CL 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 Ea Add LAD D O Marie Castro Work Phone: Start: 07-16-2023 CL Stent 1st Vessel LAD BEKAH DO Marie Castro Work Phone: Start: 06-23-2023 FOLLOW UP IN CARDIOLOGY ADRIÁN DAVIS Start: 06-11-2023 Plain X-ray of right femur DO Marie Castro Work Phone: Start: 05-25-2023 ECG 12-LEAD ADRIÁN ESPINO Start: 05-25-2023 Ecg routine ecg w/le ast 12 lds w/i&r Adrián Davis DO Work Phone: Start: 05-21-2023 Plain X-ray of right hip DO Marie Vaschak Work Phone: Start: 04-30-2023 Antibody screen W Saúl Davis Comment on above: Result Comment: PERF ORMED BY: [facility] [place] [id number] PATHOLOGIST PSYCHOLOGIST AIRAM MAST M.D. Start: 04-30-2023 End: 04-30-2023 Plain X-ray of right hip DO Marie Vasch ak Work Phone: Start: 04-30-2023 Open reduction of fr acture with internal fixation DO Marie Vaschak Work Phone: Start: 04-30-2023 Plain chest X-ray DO Ro nathalia Vaschak Work Phone: Start: 04-30-2023 CL LHC [facility] Angio DO R david Vaspauk Work Phone: Start: 04-29-2023 Open reduction of fr acture with internal fixation DO Marie Vaschak Work Phone: Start: 04-28-2023 Plain chest X-ray DO Ro nathalia Vaschak Work Phone: Start: 04-28-2023 Plain X-ray of right femur DO Marie Vaschak Work Phone: Start: 04-28-2023 Plain X-ray of right hip DO Marie Vaschak Work Phone: Start: 01-07-2022 Assay of magnesium Kim Johnson MD Work Phone: Start: 01-07-2022 BASIC METABOLIC PANE L W/ REFLEX TO MG FOR LOW K Bertin Stock DO Work Phone: Start: 01-07-2022 IMMATURE PLATELET FRACTION Breana Johnson MD Work Phone: Start: 01-06-2022 Assay of phosphorus inorganic Bertin Stock DO Work Phone: Start: 01-06-2022 BASIC METABOLIC PANE L W/ REFLEX TO MG FOR LOW K Bertin Stock DO Work Phone: Start: 01-06-2022 IMMATURE PLATELET FRACTION Breana Johnson MD Work Phone: Start: 01-05-2022 Radiologic exam upr gi trc single contrast study Breana Johnson MD Work Phone: Start: 01-05-2022 Assay of magnesium Shimon Francis MD Work Phone: Start: 01-05-2022 BASIC METABOLIC PANE L W/ REFLEX TO MG FOR LOW K Duncan Francis MD Work Phone: Start: 01-05-2022 IMMATURE PLATELET FRACTION Breana Johnson MD Work Phone: Start: 01-05-2022 Assay of magnesium Shimon Francis MD Work Phone: Start: 01-05-2022 BASIC METABOLIC PANE L W/ REFLEX TO MG FOR LOW K Duncan Francis MD Work Phone: Start: 01-04-2022 Assay of phosphorus inorganic Duncan Francis MD Work Phone: Start: 01-04-2022 BASIC METABOLIC PANE L W/ REFLEX TO MG FOR LOW K Duncan Francis MD Work Phone: Start: 01-04-2022 Assay of magnesium Shimon Francis MD Work Phone: Start: 01-04-2022 BASIC METABOLIC PANE L W/ REFLEX TO MG FOR LOW K Duncan Francis MD Work Phone: Start: 01-04-2022 Assay of phosphorus inorganic Duncan Francis MD Work Phone: Start: 01-04-2022 BASIC METABOLIC PANE L W/ REFLEX TO MG FOR LOW K Duncan Francis MD Work Phone: Start: 01-04-2022 End: 01-04-2022 Assay of phosphorus inorganic Duncan Francis MD Work Phone: Start: 01-04-2022 BASIC METABOLIC PANE L W/ REFLEX TO MG FOR LOW K Duncan Francis MD Work Phone: Start: 01-04-2022 Glucose blood reagent strip Paul Conn DO Start: 01-04-2022 End: 01-04-2022 Assay of phosphorus inorganic Duncan Francis MD Work Phone: Start: 01-04-2022 BASIC METABOLIC PANE L W/ REFLEX TO MG FOR LOW K Duncan Francis MD Work Phone: Start: 01-03-2022 End: 01-03-2022 Assay of phosphorus inorganic Duncan Francis MD Work Phone: Start: 01-03-2022 BASIC METABOLIC PANE L W/ REFLEX TO MG FOR LOW K Duncan Francis MD Work Phone: Start: 01-03-2022 End: 01-03-2022 Glucose blood reagent strip Paul Hampton Start: 01-03-2022 Glucose blood reagent strip Paul Conn DO Start: 01-03-2022 End: 01-03-2022 Assay of phosphorus inorganic Duncan Francis MD Work Phone: Start: 01-03-2022 BASIC METABOLIC PANE L W/ REFLEX TO MG FOR LOW K Duncan Francis MD Work Phone: Start: 01-03-2022 End: 01-03-2022 Glucose blood reagent strip Paul Hampton Start: 01-03-2022 Glucose blood reagent strip Paul Conn DO Start: 01-03-2022 End: 01-03-2022 Assay of phosphorus inorganic Duncan Francis MD Work Phone: Start: 01-03-2022 BASIC METABOLIC PANE L W/ REFLEX TO MG FOR LOW K Duncan Francis MD Work Phone: Start: 01-03-2022 End: 01-03-2022 Assay of phosphorus inorganic Duncan Francis MD Work Phone: Start: 01-03-2022 BASIC METABOLIC PANE L W/ REFLEX TO MG FOR LOW K Duncan Francis MD Work Phone: Start: 01-03-2022 End: 01-03-2022 Glucose blood reagent strip Paul Hampton Start: 01-03-2022 End: 01-03-2022 Assay of phosphorus inorganic Duncan Francis MD Work Phone: Start: 01-03-2022 BASIC METABOLIC PANE L W/ REFLEX TO MG FOR LOW K Duncan Francis MD Work Phone: Start: 01-03-2022 End: 01-03-2022 Glucose blood reagent strip Paul denson DO Start: 01-02-2022 Glucose blood reagent strip Paul Conn DO Start: 01-02-2022 End: 01-02-2022 Glucose blood reagent strip Paul denson DO Start: 01-02-2022 Radiologic exam abdo men 1 view Emi Ange DO Start: 01-02-2022 Culture bacterial quanttative colony count urine Tristan Bueno DO Work Phone: Start: 01-02-2022 End: 01-02-2022 Glucose blood reagent strip Paul denson DO Start: 01-02-2022 End: 01-02-2022 BOWEL RESECTION HEMICOLECTOMY LAPAROSCOPIC ROBOTIC Tristan Bueno DO Work Phone: Start: 01-02-2022 End: 01-02-2022 EGD DIAGNOSTIC ONLY Tristan Hallman O Work Phone: Start: 01-02-2022 Basic metabolic pane l calcium total Breana Johnson MD Work Phone: Start: 01-02-2022 Hepatic function panel Breana Johnson MD Work Phone: Start: 01-02-2022 LACTATE, SEPSIS Breana shelley MD Work Phone: Start: 01-02-2022 Glucose blood reagent strip Gray Ross MD Work Phone: Plan of Treatment Date Care Activity Detail Author Start: 03-18-2028 DTaP/Tdap/Td vaccine (3 - Td or Tdap) DTaP/Tdap/Td vaccine (3 - Td or Tdap) [facility] Start: 03-18-2028 DTaP/Tdap/Td Vaccine s (3 - Td or Tdap) DTaP/Tdap/Td Vaccines (3 - Td or Tdap) [facility] Start: 08-16-2023 End: 08-16-2024 Basic metabolic 2000 panel - Serum or Plasma Basic Metabolic Panel Lab Routine Cardiomyopathy, ischemic Expected: 08/16/2023 (Approximate), Expires: 08/16/2024 [facility] Work Phone: Comment on above: Expected: 08/16/2023 (Approximate), Expires: 08/16/2024 Start: 08-16-2023 End: 08-16-2024 Natriuretic peptide B [Mass/volume] in Blood B-Type Natriuretic Peptide Lab Routine Cardiomyopathy, ischemic Orthopnea Expected: 08/16/2023 (Approximate), Expires: 08/16/2024 [facility] Service Area Work Phone: Comment on above: Expected: 08/16/2023 (Approximate), Expires: 08/16/2024 Start: 07-16-2023 End: 07-16-2023 [facility] Start: 07-13-2023 COVID-19 Vaccine (3 - Moderna series) COVID-19 Vaccine (3 - Moderna series) [facility] Start: 06-23-2023 End: 06-23-2023 Patient encounter procedure 06/23/2023 2:00 PM EST Office Visit [facility] [address] [facility] [address] [place] [address] Sammy Wolff, [employer] [address] [facility] [address] [place] [address] [facility] Start: 05-07-2023 [facility] Start: 05-04-2023 Administration of prophylactic treatment [facility] Start: 05-03-2023 Hospital admission [facility] Start: 05-03-2023 Referral to clinical fixing carpenter [facility] Start: 05-03-2023 [facility] Start: 05-03-2023 Referral to rehabilitation physician [facility] Start: 05-02-2023 Blood chemistry [facility] Start: 05-02-2023 [facility] Start: 05-01-2023 Blood chemistry [facility] Start: 05-01-2023 [facility] Start: 04-30-2023 Referral to Extractions Technician [facility] Start: 04-30-2023 Blood chemistry [facility] Start: 04-30-2023 End: 04-30-2023 [facility] Start: 04-29-2023 Blood chemistry [facility] Start: 04-29-2023 Lipid panel [facility] Start: 04-29-2023 [facility] Start: 04-28-2023 [facility] Start: 04-28-2023 Hospital admission [facility] Start: 04-28-2023 [facility] Start: 04-28-2023 Hospital admission [facility] Start: 04-28-2023 Consultation [facility] Start: 04-28-2023 Referral to stock replenisher [facility] Start: 04-28-2023 End: 04-28-2023 [facility] Start: 04-28-2023 Fluoroscopy of Left Heart using Low Osmolar Contrast Fluoroscopy of Left Heart using Low Osmolar Contrast [facility] Start: 04-28-2023 Fluoroscopy of Multi ple Coronary Arteries using Low Osmolar Contrast Fluoroscopy of Multiple Coronary Arteries using Low Osmolar Contrast [facility] Start: 04-28-2023 Insertion of Intramedullary Internal Fixation Device into Right Upper Femur, Percutaneous Approach Insertion of Intramedullary Internal Fixation Device into Right Upper Femur, Percutaneous Approach [facility] Start: 04-28-2023 Measurement of Cardi ac Sampling and Pressure, Left Heart, Percutaneous Approach Measurement of Cardiac Sampling and Pressure, Left Heart, Percutaneous Approach [facility] Start: 04-04-2022 Hemoglobin A1c measurement Diabetes: Hemoglobin A1C [facility] Start: 06-30-2021 Shingles vaccine (2 of 2) Shingles vaccine (2 of 2) [facility] Start: 01-19-2021 COVID-19 Vaccine (3 - Booster for Moderna series) COVID-19 Vaccine (3 - Booster for Moderna series) [facility] Start: 09-14-2020 Meningococcal B Vacc ine (3 of 4 - Increased Risk Bexsero 2-dose series) Meningococcal B Vaccine (3 of 4 - Increased Risk Bexsero 2-dose series) [facility] Start: 1956 Urine screening for protein Diabetes: Urine Protein Screening [facility] Start: 1949 Depression Screen Depression Screen [employer] Start: 1947 Diabetic foot examination Diabetes: Foot Exam [facility] Start: 1947 Glaucoma screening Diabetes: R etinopathy Screening [facility] Start: 1947 Meningococcal B Vacc ine (1 of 4 - Increased Risk) Meningococcal B Vaccine (1 of 4 - Increased Risk) [facility] Start: 1939 Meningococcal Vaccin e (1 - Risk 2-dose series) Meningococcal Vaccine (1 - Risk 2-dose series) [facility] Start: 06-22-1938 HIB Vaccines (1 of 1 - Risk 1-dose series) HIB Vaccines (1 of 1 - Risk 1-dose series) [facility] Start: 1937 Annual Wellness Visi t (AWV) [facility]) [facility] Start: [facility] Lipid panel Lipid Panel [facility] Start: 1937 Medicare Annual Well ness Visit Medicare Annual Wellness Visit (AWV) [facility] Start: 1937 Screening for osteoporosis Bone Density Scan [facility] Basic Metabolic Pane l w/ Reflex to MG Basic Metabolic Panel w/ Reflex to MG Lab Routine Daily until discontinued starting 01/06/2022, 2 completed [employer] Phone: Comment on above: Daily until disconti nued starting 01/06/2022, 2 completed CBC W Auto Different ial panel - Blood CBC with Auto Differential Lab Routine Daily until discontinued starting 01/03/2022, 5 completed [employer]: Comment on above: Daily until disconti nued starting 01/03/2022, 5 completed Glucose [Mass/volume ] in Serum or Plasma POCT Glucose Point of Care Testing STAT As Needed until discontinued starting 01/02/2022 [employer] Phone: Comment on above: As Needed until disc ontinued starting 01/02/2022 Glucose [Mass/volume ] in Serum or Plasma POCT glucose Point of Care Testing Routine Now Then Every 4hr until discontinued starting 01/03/2022 [employer] Phone: Comment on above: Now Then Every 4hr u ntil discontinued starting 01/03/2022 Glucose measurement estimated from glycated hemoglobin [facility] Oxygen therapy [[facility] Data Set] Initiate Oxygen Therapy Protocol Respiratory Care Routine As Needed until discontinued starting 01/02/2022 [employer] Phone: Comment on above: As Needed until disc ontinued starting 01/02/2022 Patient Education Carbohydrate C ounting Diet Femur Fracture (DC) Carb counting for adults with diabetes [facility] Work Phone: Patient referral [facility] Work Phone: Phosphate [Mass/volu me] in Serum or Plasma Phosphorus Lab Routine Daily until discontinued starting 01/06/2022, 2 completed [employer] Phone: Comment on above: Daily until disconti nued starting 01/06/2022, 2 completed Spirometry panel Incentive carolyn metry Respiratory Care Routine Every 2hr while awake until discontinued starting 01/03/2022 [employer] Phone: Comment on above: Every 2hr while awak e until discontinued starting 01/03/2022 [facility] Payers Date Payer Category Payer Unknown [id number] 2023 Self-pay [id number] 2002 Medicare MEDICARE MEDICAR E PART A AND B [id number] 2002-Present [address] [place] [address] [id number] 1959 Medicare [id number]. [id number] 1959 Unknown [id number] [id number]. [id number] 1937 Unknown [id number] 2.16.840.1.984473.3.579.2.175 1937 Unknown [id number] 2.16.840.1.827283.3.579.2.593 1937 Unknown [id number] 2.16.840.1.931910.3.579.2.593 1937 Unknown [id number] 2.16.840.1.907561.3.579.2.593 1937 Unknown [id number] 2.16.840.1.979208.3.579.2.1259 1937 Unknown [id number] 2.16.840.1.304973.3.579.2.1259 1937 Unknown [id number] 2.16.840.1.487196.3.579.2.732 1937 Unknown [id number] 2.16.840.1.314552.3.579.2.718 1937 Unknown [id number] 2.16.840.1.151157.3.579.2.718 1937 Unknown [id number] 2.16.840.1.426432.3.579.2.718 1937 Unknown [id number] 2.16.840.1.482134.3.579.2.1244 1937 Unknown [id number] 2.16.840.1.284591.3.579.2.1244 1937 Unknown [id number] 2.16.840.1.036473.3.579.2.1244 Unknown [id number] 2.16.840.1.145529.3.579.2.531 Unknown [id number] 2.16.840.1.649561.3.579.2.531 Unknown [id number] 2.16.840.1.449312.3.579.2.531 Unknown [id number] 2.16.840.1.725253.3.579.2.531 Unknown [id number] 2.16.840.1.953264.3.579.2.531 Unknown [id number] 2.16.840.1.525961.3.579.2.531 Social History Date Type Detail Facility Start: 01-04-2022 End: 08-16-2023 Tobacco smoking status MEIS Ex-smoker [employer] End: 08-09-2022 History of tobacco use Cigarette Smoker [employer] Phone: Start: 01-04-2022 End: 08-16-2023 Tobacco use and exposure Smokeless tobacco non-user [employer] Phone: Start: 01-05-2022 Alcohol intake Ex-drinker (finding) [employer] Phone: Start: 1935 Sex Assigned At Not on file B ON [employer] Phone: Start: 12-24-2021 End: 08-16-2023 Exposure to SARS-CoV-2 (event) Not sure [employer] Start: 04-28-2023 End: 05-04-2023 Tobacco smoking status [facility] Current some day smoker [facility] Start: 1935 Sex [facility]igned At [facility] Start: 05-25-2023 End: 08-16-[address] [facility] Other Start: 05-25-2023 End: 08-16-2023 Alcohol intake Current drinker of alcohol (finding) [facility] Work Phone: Start: 05-25-2023 End: 08-16-2023 Alcohol intake [facility] Work Phone: Start: 07-16-2023 End: 08-09-2022 Tobacco smoking status NHIS Smoker (finding) [facility] Medical Equipment Procedure Code Equipment Code Equipment Origin al Text Equipment Identifier Dates ORIF, hip Orthopaedic bone screw, non-bioabsorbable, non-sterile [id number] FDA Start: 04-30-2023 ORIF, hip Femur nail, sterile [id number] FDA Start: 04-30-2023 ORIF, hip Spiral blade [id number] FDA Start: 04-30-2023 CL STENT MARK FRONTIER 3.5 X 18 FDA Start: 07-16-2023 Goals Date Patient Goal Desired Activity /State Functional Status Date Assessment Result Facility 07-16-2023 Functional status Patient at Baseline [facility] Work Phone: 05-08-2023 Functional status Patient is Pro gressing Toward Baseline [facility] Work Phone: 05-03-2023 Functional status Patient is Pro gressing Toward Baseline [facility] Work Phone: 04-28-2023 Functional status Patient Not at Baseline [facility] Work Phone: Mental Status Date Assessment Result Facility 07-16-2023 Cognitive function Cognitive Sta tus Patient at Baseline [facility] Work Phone: 05-08-2023 Cognitive function Cognitive Sta tus Patient is Progressing Toward Baseline [facility] Work Phone: 05-03-2023 Cognitive function Cognitive Sta tus Patient is Progressing Toward Baseline [facility] Work Phone: 04-28-2023 Cognitive function Cognitive Sta tus Patient at Baseline [facility] Work Phone: Clinical Notes 01-07-2022 to 08-16-2023 Assessment & Plan Note - Sammy Wolff APRN-[employer] - 08/16/2023 2:40 PM ESTAssessment & Plan Note - JAMIE Miramontes - 08/16/2023 2:40 PM ESTPatient Instructions Note Date & Type Note Facility 08-16-2023 Evaluation + Plan note Associated Problem(s): Cardiomyopathy, 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 He will follow up with primary Cardiology next week Associated Problem(s): ASHD (arteriosclerotic heart disease) Jun 2023 [facility] presented due to mechanical fall. 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 Patient presents to the office today for outpatient follow-up for July 16, 2023 uneventful elective PCI and stenting. Last evaluated in clinic by myself June 2023, at that time patient had recovered from recent orthopedic repair and was scheduled for PCI. Presents today ambulatory with steady gait. Accompanied by spouse History of Present Illness Patient is an extremely pleasant 88-year-old gentleman who presents today for cardiology follow-up. His right radial cath site has healed without adverse sequela. He reports that approximately 1 week ago he has noted progressive worsening dyspnea on exertion with difficulty ambulating up his stairs at home, he also reports episodes of PND with orthopnea. He reports significant dyspnea. Initially, complaints of shortness of breath/dyspnea were considered to be related to Brilinta. Upon closer questioning, the symptoms started after he had been on Brilinta for 3 weeks. He clearly reports PND and feeling anxious because I am gasping , orthopnea. He did ambulate from the exam room to the front of the office with no noted dyspnea on conversation, is comfortable at rest. GDMT: Is unclear today if he is actually taking Diovan. Reviewed the importance of DAPT. Brilinta will be cost prohibitive. Will transition over to Plavix at this time. He has some type of pending urologic procedure, has not been scheduled to date. Will be seeking POC from primary stock replenisher. Patient reports that overall has complaint(s) of dyspnea, orthopnea, and paroxysmal nocturnal dyspnea. The importance of secondary prevention reviewed: HTN: Optimal in office HLD: High intensity statin DM: Reports working on it Smoker: Denies BMI: Reviewed the merits of healthy lifestyle choices on overall cardiovascular health. Discussed with patient symptoms could be related to Brilinta for are suspicious for mild decompensated heart failure. Will add short course of Lasix 20 mg daily, check Chem-6 and BNP. Transition Brilinta over to Plavix. Will schedule follow-up with primary stock replenisher Dr. Perez next week. Review of Systems Cardiovascular: Positive for dyspnea on exertion, orthopnea and paroxysmal nocturnal dyspnea. Negative for chest pain, irregular heartbeat, leg swelling, near-syncope, palpitations and syncope. Respiratory: Positive for shortness of breath. Visit Vitals BP 134/80 (BP Location: Left arm, Patient Position: Sitting) Pulse 72 Ht 1.778 m (5' 10 ) Wt 63.5 kg (140 lb) BMI 20.09 kg/m Smoking Status Former BSA 1.77 m Physical Exam Constitutional: Appearance: Normal appearance. Cardiovascular: Rate and Rhythm: Normal rate and regular rhythm. Heart sounds: Murmur heard. Systolic murmur is present with a grade of 1/6. Friction rub present. Pulmonary: Effort: Pulmonary effort is normal. Breath sounds: Normal breath sounds. Abdominal: Palpations: Abdomen is soft. Musculoskeletal: Right lower leg: No edema. Left lower leg: No edema. Skin: General: Skin is warm and dry. Neurological: Mental Status: He is alert and oriented to person, place, and time. Psychiatric: Attention and Perception: Attention normal. Mood and Affect: Mood normal. No Known Allergies Current Outpatient Medications Medication Instructions aspirin 81 mg, oral, Daily atorvastatin (LIPITOR) 80 mg, oral, Daily cetirizine (ZYRTEC) 10 mg, oral, Daily cholecalciferol (VITAMIN D3) 25 mcg, oral, Daily clopidogrel (PLAVIX) 75 mg, oral, Daily furosemide (LASIX) 20 mg, oral, Daily insulin aspart (NOVOLOG U-100 INSULIN ASPART) 100 Units, subcutaneous, 3 times daily before meals, Take as directed per insulin instructions. insulin glargine (LANTUS U-100 INSULIN) 24 Units, subcutaneous, Nightly, Take as directed per insulin instructions. lipase/protease/amylase (CREON ORAL) 24,000 mg, oral, 3 times daily lutein 10 mg tablet 1 tablet, oral, Daily multivit-min/ferrous fumarate (MULTI VITAMIN ORAL) 1 tablet, oral, Daily nitroglycerin (NITROSTAT) 0.4 mg, sublingual, Every 5 min PRN, May repeat dose every 5 minutes for up to 3 doses total. PARoxetine (PAXIL) 30 mg, oral, Every morning Assessment: ASHD (arteriosclerotic heart disease) Jun 2023 [facility] [place] due to mechanical fall. 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 He will follow up with primary Cardiology next week Plan: Through informed decision making process incorporating patients unique circumstances, the following treatment plan will be initiated: 1. Prescription drug management of cardiovascular medication for efficacy, adherence to treatment, side effect assessment and polypharmacy. Current treatment clinically warranted and to continue without modifications. - Stop Brilinta in the morning - Begin Plavix: on first day take 4 tablets (300mg) then take one tablet daily - Lasix 20mg daily: take for next 4 days and see if shortness of breath improves 2. Labs (Chem6, BNP) 3. Return for follow-up; in the interim, contact the office if new symptoms arise. Dr. Perez in one week - please bring your medications to the office Sammy Wolff MSN, [employer], PMHNP-[facility] Please excuse any errors in grammar or translation related to this dictation. Voice recognition software was utilized to prepare this document. documented in this encounter [facility] Work Phone: 08-16-2023 Instructions JAMIE Miramontes - 08/16/2023 2:00 PM EST Please bring all medicines, vitamins, and herbal supplements with you when you come to the office. Prescriptions will not be filled unless you are compliant with your follow up appointments or have a follow up appointment scheduled as per instruction of your physician. Refills should be requested at the time of your visit. PLAN: Through informed decision making process incorporating patients unique circumstances, the following treatment plan will be initiated: 1. Prescription drug management of cardiovascular medication for efficacy, adherence to treatment, side effect assessment and polypharmacy. Current treatment clinically warranted and to continue without modifications. - Stop Brilinta in the morning - Begin Plavix: on first day take 4 tablets (300mg) then take one tablet daily - Lasix 20mg daily: take for next 4 days and see if shortness of breath improves 2. Labs (Chem6, BNP) 3. Return for follow-up; in the interim, contact the office if new symptoms arise. Dr. Perez in one week - please bring your medications to the office documented in this encounter [facility] Work Phone: 07-16-2023 Discharge summary Note Date/Time July 16, 2023 4:06pm [place] [address] Discharge Summary Signed Patient: Ashwini Vickers MR#: [id number] : 1935 Acct:[id number] Age/Sex: 88 / M Adm Date: 4 Loc: Room: Attending Dr: Federico Davis DO Copies to: DO Federico Rodriguez, DO~ Providers Date of Discharge: 07/16/23 Discharging Provider: Federico Davis Primary Care Provider: Marie Castro Discharge Diagnosis (1) Non-ST elevation myocardial infarction (NSTEMI), subendocardial infarction, subsequent episode of care: (2) Diabetes: (3) CAD (coronary artery disease): Final Diagnosis Final Discharge Diagnosis: 1. Recent non-ST elevation NE associated with fall and hip fracture 2. Severe two-vessel ASHD involving mid LAD and diagonal branch bifurcation 3. Mild LV dysfunction 4. Successful PCI ostial diagonal branch into the LAD with 3.5 x 18 mm Mark stent 5. Chronic total occlusion proximal/mid LAD Summary Hospital Course Hospital course: 88-year-old gentleman with recent fall and hip fracture complicated by non-ST elevation NE, abnormal stress imaging and subsequent diagnosis of severe two-vessel coronary artery disease involving mid LAD and large diagonal branch bifurcation. The LAD itself is subtotally occluded with the diagonal branch origin being 80 to 85%. Patient was referred for elective attempt at crossing the LAD with possible revascularization as well as revascularization of the ostial diagonal branch. 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 and therefore aborted, diagonal branch was stented with a 3.5 x 18 mm Mark stent without complications Patient will be discharged at 10 PM on dual antiplatelet therapy to follow-up with [facility] cardiology Condition Condition at Discharge: Stable Status at Discharge Functional status at discharge: independent ambulation Overall status at discharge: patient is back to baseline Time Spent with Patient Time spent providing/coordinating discharge services (# min): 15 Surgeries and Procedures Operation Date: 07/16/23 14:15 <No data on this case meets the specified criteria> Complications Complications: None Diagnostic Studies Completed and Pending Studies Pending studies at discharge: 07/16/23 16:00 CPR cardiac rehab ed Routine ECG 12 lead ECG Stat 07/17/23 05:00 ECG 12 lead ECG IN AM Troponin I High Sensitivity [CHEM] IN AM Labs on day of discharge: 07/16/23 13:00: PT 12.3, INR 1.1, APTT 30.2 07/16/23 13:00: PHA Creatinine Clear N/A, Creatinine 0.71, Est GFR (CKD-EPI) > 60.0 07/16/23 13:00: Sodium 138, Potassium 4.2, Chloride 103, Carbon Dioxide 26.8, Anion Gap 12.4, BUN 16 07/16/23 13:00: Corrected WBC 8.4, Uncorrected WBC Count 8.4, RBC 4.17, Hgb 11.0 L, Hct 33.5 L, MCV 80.4 L, MCH 26.4 L, MCHC 32.8, RDW 16.5 H, Plt Count 243, MPV 10.1, Neut % (Auto) 75.7, Lymph % (Auto) 8.4, [place] % (Auto) 15.1, Eos % (Auto) 0.3, Baso % (Auto) 0.5, Nucleat RBC Rel Count 0.1, Neut # (Auto) 6.3, Lymph # (Auto) 0.7 L, [place] # (Auto) 1.3 H, Eos # (Auto) 0.0, Baso # (Auto) 0.0, Platelet Estimate Normal, Large Platelets Slight, Plt Morphology Comment N/A, RBC Morphology N/A, Polychromasia Moderate, Hypochromasia Marked, Poikilocytosis Moderate, Anisocytosis Slight, Macrocytosis Slight, Target Cells Moderate, Schistocytes Slight Exam Physical Exam Vital Signs: Temp Pulse Resp BP Pulse Ox O2 Del Method 96.7 F L 59 L 18 161/87 H 100 Room Air 07/16/23 13:24 07/16/23 13:24 07/16/23 13:24 07/16/23 13:24 07/16/23 13:24 07/16/23 13:28 Discharge Plan Discharge Plan Patient Disposition: Home Diet: Low-Cholesterol Additional Instructions: DISCHARGE INSTRUCTIONS FOR ANGIOPLASTY/CORONARY/PERIPHERAL/STENT IMPLANT FOR ADULT ANTICOAGULATION -Since the greatest risk of a blood clot forming with the stent occurs in the first 2-3 weeks after implantation, you will need to take anticoagulants for at least 1 yr ANTICOAGULATION MEDICATION [INSERT MEDICATION NAME: Aspirin 81mg once a day, Ticagrelor (Brilinta) 90mg twice a day] STATIN MEDICATION [INSERT MEDICATION NAME: atorvastatin (Lipitor) 80 mg or rosuvastatin (Crestor) 40mg] [Drug-Eluting Stent (BEKAH) duration] DO NOT discontinue Brilinta/Aspirin during the first few months regardless of what you are advised by your family doctor or pharmacist, without first calling the stock replenisher who implanted the stent. If you require pain relief during this time, please take only ACETAMINOPHEN (TYLENOL)- NO additional aspirin or ibuprofen. DISCHARGE ACTIVITIES ARE FOLLOWS: First week after discharge: -Take it easy at home, no strenuous activity. -Do not lift or pull objects over 10-15 pounds, including children, and groceries for four weeks. If puncture site is at wrist do NOT lift more than three pounds for three days. - May walk up stairs. -May shower. -No excessive scrubbing of the affected site (groin). -May ride in car. -May resume sexual intercourse after 1-2 weeks. -No MRI for 12 days. -May drive in 4-7 days. -If puncture site is at the wrist do not manipulate the wrist for 24 hours, and no soaking wrist for three days. Second Week: -May take a bath -May start walking 3 times a week for 15-20 minutes at a leisurely pace. You should be able to carry on a conversation comfortably without feeling winded. -No strenuous activity as in jogging, running, weight lifting, stair steppers, etc. until the stock replenisher approves these activities. Check with the stock replenisher on your first follow-up visit. CALL YOUR PHYSICIAN at [phone]: -If bleeding should occur from the catheter insertion site- apply pressure to the site then immediately call us. -Report any fever, redness, drainage, increased swelling, or firmness at the catheter insertion site. Some bruising or slight swelling may be present at thetime of discharge. -Should arm or leg become cold, numb, white, or blue, contact the stock replenisher immediately. -IF you should experience episodes of angina, e.g. chest discomfort, heaviness, tightness, pressure burning with or without radiation to the neck, jaw, arms or back- use 1 Nitrostat tablet under your tongue every 5-10 minutes and up to three tablets. IF NO RELIEF, CALL 911 or GO TO THE NEAREST EMERGENCY ROOM. -Please notify our office if you have recurrent angina. -[Cardiac Rehab Education Provided. Participation in the Cardiopulmonary Rehabilitation program is recommended. Please call Central Scheduling at [phone] to schedule your appointment.] The attending stock replenisher or [facility] nurse clinician should provide you with specific instructions regarding activity, diet, medications, and further follow up for you. Follow the medication instructions provided on your discharge. If the dosages and instructions on this sheet differ from the dosage and instructions on the bottle, follow the instructions on the bottle. [facility] is not responsible for incorrect prescription information provided by thepatient during their visit. Do not stop your medications without consulting your health care provider. Please take the list with you to your next doctor's appointment. Prescriptions: New Brilinta 90 mg tablet 90 mg PO BID Qty: 180 3RF nitroglycerin 0.4 mg tablet, sublingual 0.4 mg sublingual Q5M PRN (Reason: chest pain) Qty: 30 2RF Rx Instructions: until response; do not exceed 3 doses per event Continued atorvastatin 80 mg Tablet 80 mg PO QPM 30 Days Qty: 30 0RF hydrocodone-acetaminophen 5-325 mg Tablet 1 tab PO Q4H PRN (Reason: Pain) 7 Days Qty: 20 0RF aspirin 81 mg Tablet,Delayed Release (Dr/Ec) 81 mg PO DAILY 30 Days Qty: 30 0RF acetaminophen 500 mg Tablet 500 mg PO Q6HR Qty: 90 0RF ascorbic acid (vitamin C) [Vitamin C] 500 mg Tablet 500 mg PO DAILY Qty: 30 0RF insulin aspart U-100 [Novolog FlexPen U-100 Insulin] 100 unit/mL (3 mL) Insulin Pen 1 sliding scale dose subcut ACHS 30 Days Qty: 15 0RF calcium carbonate-vitamin D3 [Oyster Shell Calcium-Vit D3] 500 mg-5 mcg (200 unit) Tablet 1 tab PO TID.WITH.MEALS 30 Days Qty: 90 0RF nitroglycerin 0.4 mg Tablet, Sublingual 0.4 mg sublingual Q5M PRN (Reason: Chest Pain) 30 Days Qty: 30 0RF insulin glargine [Lantus Solostar U-100 Insulin] 100 unit/mL (3 mL) Insulin Pen 7 units subcut BID 30 Days Qty: 4.2 0RF Creon 24,000-76,000 -120,000 unit Capsule,Delayed Release(Dr/Ec) 2 cap PO TID.WITH.MEALS 30 Days Qty: 120 0RF triamcinolone acetonide 0.1 % Cream 1 applic topical QID PRN (Reason: Irritation) Qty: 15 0RF tamsulosin 0.4 mg Capsule 0.4 mg PO DAILY 30 Days Qty: 30 0RF paroxetine HCl 30 mg Tablet 30 mg PO DAILY 30 Days Qty: 30 0RF valsartan 160 mg Tablet 160 mg PO DAILY 30 Days Qty: 30 0RF insulin aspart U-100 [Novolog FlexPen U-100 Insulin] 100 unit/mL (3 mL) Insulin Pen See Protocol subcut TID.WITH.MEALS Qty: 0 0RF Protocol: Carb Coverage Insulin 1:10 gm CHO Protocol Text: *Carb coverage 1:10* Give 1 unit of rapid-acting insulin for every 10 gm of carbohydrates eaten atmeals cyclobenzaprine 5 mg Tablet 5 mg PO Q8H PRN (Reason: Muscle Spasm) 30 Days Qty: 30 0RF ferrous sulfate 324 mg (65 mg iron) Tablet,Delayed Release (Dr/Ec) 324 mg PO DAILY 30 Days Qty: 30 0RF Follow Up: [facility] [Outside] - 08/16/23 2:00 pm Documented By: Federico Davis DO 07/16/23 8760 Signed By: <Electronically signed by Federico Davis, DO> 07/16/23 1609 [facility] Work Phone: 1(671) 857-563501-05-2024 [facility] History of Present illness Narrative* Adrián Davis, - 05/25/2023 1:00 PM EST Subjective Ashwini Vickers is a 88 y.o. male Chief Complaint Hospital Follow-up Seen in cardiology consultation at the request of Dr. Anat Perez for further evaluation and management in regards to coronary artery disease, recent non-ST elevation NE with moderately reduced left ventricular dysfunction and ejection fraction of 40 to 45%. Catheterization from my memory, reveals total occlusion of the mid LAD and severe stenosis of the proximal smaller but medium size diagonal branch. All of this was performed following hospitalization for fall and fractured right hip where he underwent cardiology consultation for preoperative risk assessment and clearance with evidence of elevated cardiac enzymes, LV dysfunction by echo, and subsequent catheterization revealing the above-mentioned two-vessel disease. He underwent successful intratrochanteric nailing, and was discharged to rehab. He is now home continuing with rehab, and had some minor trauma earlier today when getting readyto come to this appointment and is in a somewhat moderate amount of pain currently His past medical history is otherwise noted for hypertension and diabetes There is no prior history of myocardial infarction, revascularization, stroke, thromboembolic or bleeding disorder. We reviewed his echocardiogram, discharge summaries, heart catheterization from my memory 1 week ago. Risks, benefits and alternatives and informed decision-making process performed with him and his for 30 minutes this afternoon, will hold off on revascularization until he is feeling better froma pain standpoint, put a little more time between his actual traumatic event and revascularization,will follow- up in the next 4 weeks from a cardiovascular standpoint he is currently stable. Review of Systems All other systems reviewed and are negative. Visit Vitals BP 136/88 (BP Location: Right arm, Patient Position: Sitting) Pulse 70 Ht 1.778 m (5' 10 ) Wt 61.7 kg (136 lb) BMI 19.51 kg/m Smoking Status Some Days BSA 1.75 m EKG done in office today tive Physical Exam Constitutional: Appearance: Normal appearance. He is normal weight. HENT: Nose: Nose normal. Neck: Vascular: No carotid bruit. Cardiovascular: Rate and Rhythm: Normal rate. Pulses: Normal pulses. Heart sounds: Normal heart sounds. Pulmonary: Effort: Pulmonary effort is normal. Abdominal: General: Bowel sounds are normal. Palpations: Abdomen is soft. Genitourinary: Rectum: Normal. Musculoskeletal: General: Normal range of motion. Cervical back: Normal range of motion. Right lower leg: No edema. Left lower leg: No edema. Skin: General: Skin is warm and dry. Neurological: General: No focal deficit present. Mental Status: He is alert. Psychiatric: Mood and Affect: Mood normal. Behavior: Behavior normal. Thought Content: Thought content normal. Judgment: Judgment normal. Current Medications Current Outpatient Medications: ascorbic acid (Vitamin C) 100 mg tablet, Take 1 tablet (100 mg) by mouth once daily., Disp: , Rfl: aspirin 81 mg EC tablet, Take 1 tablet (81 mg) by mouth once daily., Disp: , Rfl: atorvastatin (Lipitor) 80 mg tablet, Take 1 tablet (80 mg) by mouth once daily., Disp: , Rfl: calcium carbonate (Oscal) 500 mg calcium (1,250 mg) tablet, Take 1 tablet (1,250 mg) by mouth 3 times a day with meals., Disp: , Rfl: cyclobenzaprine (Flexeril) 5 mg tablet, Take 1 tablet (5 mg) by mouth 3 times a day as needed for muscle spasms., Disp: , Rfl: ferrous sulfate, 325 mg ferrous sulfate, (iron) tablet, Take 1 tablet (325 mg) by mouth once daily with a meal., Disp: , Rfl: insulin aspart (NovoLOG U-100 Insulin aspart) 100 unit/mL injection, Inject 100 Units under the skin 3 times a day before meals. Take as directed per insulin instructions., Disp: , Rfl: insulin glargine (Lantus U-100 Insulin) 100 unit/mL injection, Inject 24 Units under the skin once daily at bedtime. Take as directed per insulin instructions., Disp: , Rfl: lipase/protease/amylase (CREON ORAL), Take 24,000 mg by mouth 3 times a day., Disp: , Rfl: PARoxetine (Paxil) 30 mg tablet, Take 1 tablet (30 mg) by mouth once daily in the morning., Disp: ,Rfl: tamsulosin (Flomax) 0.4 mg 24 hr capsule, Take 1 capsule (0.4 mg) by mouth once daily., Disp: , Rfl: valsartan (Diovan) 160 mg tablet, Take 1 tablet (160 mg) by mouth once daily., Disp: , Rfl: Assessment/Plan 1. Abnormal stress test - ECG 12 Lead - Follow Up In Cardiology; Future 2. ASHD (arteriosclerotic heart disease) - ECG 12 Lead - Follow Up In Cardiology; Future 3. NSTEMI (non-ST elevated myocardial infarction) ([facility]) - Follow Up In Cardiology; Future 4. Essential hypertension 5. Diabetes mellitus type II, non insulin dependent ([facility]) 6. Closed fracture of right hip, initial encounter ([facility]) documented [facility] Work Phone: 1(504) 568-658811-14-2023 Instructions* Patient Instructions* Lori Pelayo LPN - 05/25/2023 1:00 PM EST Please bring all medicines, vitamins, and herbal supplements with you when you come to the office. Prescriptions will not be filled unless you are compliant with your follow up appointments or have a follow up appointment scheduled as per instruction of your physician. Refills should be requested at the time of your visit. documented in this encounterUniversity [facility] Work Phone: [phone]) 518-423411-10-2023 Evaluation note* Encounter Date Diagnosis Assessment Notes Treatment Notes Treatment Clinical Notes May, Closed displaced intertrochanteric fracture of right femur, initial encounter (ICD-10 - S72.141A) Radiographs of right hip was reviewed with the patient today, along with a physical examination. Patient should continue with PT. Continue use of pain medication to control pain. [employer] Other 10-27-2023 Progress note Author Fredi Medrano [facility] May 07, 2023 12:48pm Note Date/Time May 07, 2023 1 2:36pm [facility] ENTER [address] [place] [address] Physiatry(Rehab) Progress Note Signed Patient: Ashwini Vickers MR#: [id number] : 1935 Acct:[id number] Age/Sex: 88 / M Adm Date: 3 Loc: Room: 7Y1974-5 Type: ADM IN Attending Dr: Fredi Medrano MD Copies to: ~ Date of Service: 05/07/2023 Subjective Subjective Narrative: Mr. Vickers is a 88 year old male with past medical history of type 1 diabetes, s/p pancreatectomy and splenectomy, gastric ulcers, presented to acute inpatientrehabilitation unit with functional impairments secondary to right hip fracture s/p fall. Patient sustained a fall from standing after getting up too quickly from a chair. Patient does not recall whether he fainted but did feel lightheaded; unsure of head injury. Per report, he was hypoglycemic in 40s. Patient was brought to [facility] where imaging demonstrated mildly displaced right intertrochanteric hip fracture. There was also mild elevation in troponin at 35.5. Also elevated BNP. No prior cardiac history or cardiopulmonary symptoms. EKG demonstrated marked ST abnormality. Echo notable for EF of 40 to 45% with severe anterior wall hypokinesis. He was admitted under cardiology and orthopedic surgery consultation. Patient underwent left heart catheterization which was notable for 100% LAD occlusion, 80% D1 occlusion and 50% left circumflex stenosis. Cardiology does not believe he has had an NE and is planning on performing an intervention afterhe completes rehab. Patient underwent reduction internal fixation short intramedullary nailing of the right hip fracture on 04/30/[address] Conrad. Postop he is to weight-bearas tolerated to the right lower extremity. Placed on SQ Lovenox for DVT prophylaxis. Postop course complicated by poorly controlled/labile blood glucose levels. HisA1c level is > 12. INTERVAL HISTORY; Pt seen and examined at the bedside. Lying comfortably in bed and in no distress. Feels as though therapy continues to go well. Has an FI today scheduled with his . No concerns. Hopeful to be discharged early next week. Review of Systems Review of Systems All other systems reviewed & are negative unless noted below or in HPI Exam Physical Exam Vital Signs: Temp Pulse Resp BP Pulse Ox O2 Del Method 97.9 F 61 15 152/75 H 97 Room Air 05/07/23 06:10 05/07/23 06:10 05/07/23 06:10 05/07/23 06:55 05/07/23 06:10 05/07/23 07:30 Narrative: General: Awake, A&O x 3, pleasant, cooperative, well nourished. Resting comfortably in bed HENT: NC, AT Eyes: No scleral icterus Neck: Supple Cardio: Extremities well perfused Respiratory: No evidence of respiratory distress GI: Soft, nontender, nondistended Neuro: CN II-XII intact. Strength 5/5 right upper and lower extremities. Strength 5/5 left upper and lower extremities.Moves all extremities spontaneously. Sensation intact bilateral lower extremities. Extremities: No edema, erythema, cyanosis Psych: Affect, speech and movements normal. Mood congruent Objective Labs 05/04/23 05:29 05/04/23 05:29 Labs: Laboratory Results - last 24 hr 05/06/23 05/06/23 05/07/23 16:48 20:34 06:20 POC Glucose 308 258 67 POC Glucose Comment Glu2: cleaned meter 05/07/23 05/07/23 06:54 11:35 POC Glucose 112 238 POC Glucose Comment Glu2: cleaned meter Medications and Allergies Allergies and Active Meds: Allergies No Known Allergies Allergy (Verified 04/28/23 12:20) Active Medications Generic Name Dose Route Start Last Admin Trade Name Jesúsq PRN Reason Stop Dose Admin Acetaminophen 500 mg 05/03/23 18:00 05/07/23 12:13 Acetaminophen 500 Mg Tablet PO 05/02/24 17:59 500 mg Q6HR TAVIA Administration Hydrocodone Bitart/Acetaminophen 1 tab 05/03/23 17:11 05/07/23 09:11 Hydrocodone/Acetaminophen 5-325 Mg Tablet PO 1 tab Q4H PRN Administration Pain Al Hydrox/Mg Hydrox/Simethicone 30 ml 05/03/23 16:59 Mag Hydrox/Al Hydrox/Simeth 30 Ml Udc PO 05/02/24 16:58 Q4H PRN Indigestion Lipase/Protease/Amylase 2 cap 05/04/23 08:00 05/07/23 12:12 Lipa/Prot/Amyla 24-76-120k 1 Cap Capsule. PO 05/03/24 07:59 2 cap TID.WITH.MEALS TAVIA Administration Ascorbic Acid 500 mg 05/04/23 09:00 05/07/23 09:09 Ascorbic Acid 500 Mg Tablet PO 05/03/24 08:59 500 mg DAILY TAVIA Administration Aspirin 81 mg 05/04/23 09:00 05/07/23 09:09 Aspirin 81 Mg Tablet. PO 05/03/24 08:59 81 mg DAILY TAVIA Administration Atorvastatin Calcium 80 mg 05/03/23 21:00 05/06/23 21:27 Atorvastatin 80 Mg Tablet PO 05/02/24 20:59 80 mg QPM TAVIA Administration Bisacodyl 10 mg 05/03/23 16:59 Bisacodyl 10 Mg Supp.Rect [place] 05/02/24 16:58 DAILY PRN Constipation Calcium Carbonate 1 tab 05/04/23 08:00 05/07/23 12:13 Calcium Carbonate/Vitamin D3 500 Mg/200 Unit Tablet PO 05/03/24 07:59 1 tab TID.WITH.MEALS TAVIA Administration Cyclobenzaprine HCl 5 mg 05/04/23 10:30 05/06/23 21:27 Cyclobenzaprine 5 Mg Tablet PO 05/03/24 10:29 5 mg Q8H PRN Administration Muscle Spasm Docusate Sodium 100 mg 05/03/23 16:59 Docusate 100 Mg Capsule PO 05/02/24 16:58 BID PRN Constipation Docusate Sodium 283 mg 05/03/23 16:59 Docusate Enema 283 Mg/5 Ml Enema [place] 05/02/24 16:58 DAILY PRN Constipation Enoxaparin Sodium 40 mg 05/04/23 10:00 05/07/23 09:10 Enoxaparin 40 Mg/0.4 Ml Syringe SUBCUT 05/03/24 09:59 40 mg DAILY@1000 TAVIA Administration Ferrous Sulfate 324 mg 05/05/23 09:00 05/07/23 09:09 Ferrous Sulfate 324 Mg Tablet. PO 05/04/24 08:59 324 mg DAILY TAVIA Administration Insulin Aspart 0 units 05/03/23 17:00 05/07/23 09:07 Insulin Aspart 300 Units/3 Ml Insuln.Pen SUBCUT 05/02/24 16:59 6 units TID.WITH.MEALS TAVIA Administration Protocol Insulin Aspart 0 units 05/03/23 18:00 05/07/23 12:13 Insulin Aspart 300 Units/3 Ml Insuln.Pen SUBCUT 05/02/24 17:59 2 units ACHS TAVIA Administration Protocol Insulin Glargine 7 units 05/03/23 21:00 05/07/23 09:10 Insulin Glargine 300 Units/3 Ml Insuln.Pen SUBCUT 05/02/24 20:59 7 units BID TAVIA Administration Lactulose 30 gm 05/03/23 16:59 Lactulose 20 Gm/30 Ml Udc PO 05/02/24 16:58 DAILY PRN Constipation Magnesium Hydroxide 30 ml 05/03/23 17:11 Magnesium Hydroxide Susp 30 Ml Udc PO 05/02/24 17:10 BID PRN Constipation Nitroglycerin 0.4 mg 05/03/23 17:11 Nitroglycerin 0.4 Mg Tab.Subl SUBLINGUAL 05/02/24 17:10 Q5M PRN Chest Pain Paroxetine HCl 30 mg 05/04/23 09:00 05/07/23 09:09 Paroxetine 30 Mg Tablet PO 05/03/24 08:59 30 mg DAILY TAVIA Administration Sennosides 2 tab 05/04/23 12:00 Sennosides 8.6 Mg Tablet PO 05/03/24 11:59 DAILY@12 PRN If no BM in 2 days Sodium Chloride 0 ml 05/03/23 16:59 Sodium Chloride 0.9 % 10 Ml Syringe IV-PUSH 05/02/24 16:58 PRN PRN Flush Tamsulosin HCl 0.4 mg 05/04/23 09:00 05/07/23 09:09 Tamsulosin 0.4 Mg Cap.Er.24h PO 05/03/24 08:59 0.4 mg DAILY TAVIA Administration Triamcinolone Acetonide 1 applic 05/03/23 17:11 Triamcinolone 0.1% Cream 15 Gm Tube TOPICAL 05/02/24 17:10 QID PRN Irritation Valsartan 160 mg 05/06/23 09:00 05/07/23 06:18 Valsartan 160 Mg Tablet PO 05/05/24 08:59 160 mg DAILY TAVIA Administration Assessment/Plan Assessment/Plan (1) Closed intertrochanteric fracture of right hip: Code(s): S72.141A - Displaced intertrochanteric fracture of right femur, initial encounter for closed fracture Status: Acute (2) CAD (coronary artery disease): Code(s): I25.10 - Atherosclerotic heart disease of [place] coronary artery without angina pectoris Status: Acute (3) Mild left ventricular systolic dysfunction (LVSD): Code(s): I51.89 - Other ill-defined heart diseases Status: Acute (4) Diabetes: Code(s): E11.9 - Type 2 diabetes mellitus without complications Status: Acute (5) Impaired mobility and activities of daily living: Code(s): Z74.09 - Other reduced mobility; Z78.9 - Other specified health status Status: Acute (6) Uncontrolled diabetes mellitus: Status: Acute (7) Hypertension: Code(s): I10 - Essential (primary) hypertension Status: Acute (8) Two-vessel coronary artery disease: Code(s): I25.10 - Atherosclerotic heart disease of [place] coronary artery without angina pectoris Status: Acute (9) Postoperative pain, acute, hip: Code(s): G89.18 - Other acute postprocedural pain; M25.559 - Pain in unspecified hip Status: Acute Plan 88-year-old male presenting to acute inpatient rehabilitation unit with functional impairments secondary to right hip fracture s/p repair. Hospital course complicated by non-NE troponin elevation. He was found to have two-vessel heart disease. Intervention is planned in outpatient settings after he completes rehab course. * No acute events or concerns. Clinically stable at this time. * Doing well in therapy, improving. Ambulatory> 200 feet with a wheeled walker and standby assist. CGA/SBA for transfers. Will arrange an FI early next week, home Wednesday VS Wednesday. Patient education Pressure ulcer prophylaxis; encourage mobilization, frequent postural changes, pressure-relief techniques DVT prophylaxis: Lovenox SQ Encourage deep breathing exercise incentive spirometry. Monitor bladder. Toileting schedule. Continue current bladder management, with scans as needed and CIC if needed. Start bowel care program every day to obtain continence, prevent ileus. Maintain fall precautions Gait and balance retraining Functional training and self-care and home management, including activities of daily living and instrumental activities of daily living Provision of the necessary gait aids and functional adaptive equipment to enhance the patient's a functional christian Ensure adequate nutrition and hydration Sleep no issues Pain: Continue current regimen. Discharge planning Home with in 7 to 10 days. I spent greater than 15 minutes for services, including [id number] encounter with the patient, discussion of the case, plan of care, and exam; and [id number] activities, such as reviewing pertinent pmo consultant documentation, recent therapy notes, laboratory and radiology studies, and discussion of case with care team including physician, nursing, case operator, and therapists. More than 50 % of time was spent on patient/family counseling or coordination ofcare. Plan: I completed a substantive portion of this encounter, the medical decision makingportion of this note in its entirety, including Allied health note review, nursing note review, pmo consultant note review, discussion with nursing and case management, and more than 50% of my time was spent on counseling and coordination of care, time spent 25 minutes Patient was personally seen by me, Dr. Medrano, on the day of encounter, reviewed the history and the relevant portions of the chart, including current orders, allied health and pmo consultant notes, labs/imaging and performed smyth elements of exam and I formulated the plan of care and facilitated the medical decision making. Documented By: Fredi Medrano MD [id number] Signed By: <Electronically signed by Fredi Medrano MD> 05/07/23 1248 [facility] Work Phone: 1(461) 715-631710-26-2023 Progress note Author Fredi Medrano [facility] May 06, 2023 2:46pm Note Date/Time May 06, 2023 1 2:53pm [facility] ENTER [address] [place] [address] Physiatry(Rehab) Progress Note Signed Patient: Ashwini Vickers MR#: [id number] : 1935 Acct:[id number] Age/Sex: 88 / M Adm Date: 3 Loc: Room: [address] [place] [address] Type: ADM IN Attending Dr: Fredi Medrano MD Copies to: ~ <Teena Victoria APRN - Last Filed: 05/06/23 13:14> Date of Service: 05/06/2023 Subjective <Teena Victoria APRN - Last Filed: 05/06/23 13:14> Subjective Narrative: Mr. Vickers is a 88 year old male with past medical history of type 1 diabetes, s/p pancreatectomy and splenectomy, gastric ulcers, presented to acute inpatientrehabilitation unit with functional impairments secondary to right hip fracture s/p fall. Patient sustained a fall from standing after getting up too quickly from a chair. Patient does not recall whether he fainted but did feel lightheaded; unsure of head injury. Per report, he was hypoglycemic in 40s. Patient was brought to [facility] ER where imaging demonstrated mildly displaced right intertrochanteric hip fracture. There was also mild elevation in troponin at 35.5. Also elevated BNP. No prior cardiac history or cardiopulmonary symptoms. EKG demonstrated marked ST abnormality. Echo notable for EF of 40 to 45% with severe anterior wall hypokinesis. He was admitted under cardiology and orthopedic surgery consultation. Patient underwent left heart catheterization which was notable for 100% LAD occlusion, 80% D1 occlusion and 50% left circumflex stenosis. Cardiology does not believe he has had an NE and is planning on performing an intervention afterhe completes rehab. Patient underwent reduction internal fixation short intramedullary nailing of the right hip fracture on 04/30/[address] Conrad. Postop he is to weight-bearas tolerated to the right lower extremity. Placed on SQ Lovenox for DVT prophylaxis. Postop course complicated by poorly controlled/labile blood glucose levels. HisA1c level is > 12. INTERVAL HISTORY; Pt seen and examined at the bedside. Pt is alert and oriented x 3, calm and cooperative with assessment. Right hip is moderately painful with activity. He is comfortable at rest and denies any pain at this time. He denies chest pain, palpitations or shortness of breath. Cardiopulmonary assessment is unremarkable. He is asking to go home soon. He is doing reasonably well in therapy, walking functional distances with a walker and standby assist. Still needing some assistance with transfers. We discussed staying over the weekend and possibly bringing his in for an FI on Wednesday or Wednesday. Patient is agreeable Review of Systems <Teena Victoria APRN - Last Filed: 05/06/23 13:14> Review of Systems All other systems reviewed & are negative unless noted below or in HPI Exam <Teena Victoria APRN - Last Filed: 05/06/23 13:14> Physical Exam Vital Signs: Temp Pulse Resp BP Pulse Ox O2 Del Method 97.8 F 63 14 164/86 H 96 Room Air 05/06/23 05:17 05/06/23 05:17 05/06/23 05:17 05/06/23 05:17 05/06/23 05:17 05/06/23 05:17 Narrative: General: Awake, alert, oriented x3 HENT: Normal to inspection, normocephalic, atraumatic Eyes: PERRL, normal conjunctiva and sclera Neck: Normal ROM, normal visual inspection. Trachea midline. Cardio: Regular heart rate and rhythm Respiratory: Clear to auscultation bilaterally. Normal respiratory effort. No respiratory distress. GI: Abdomen soft, nontender, nondistended, active bowel sounds x4 quadrants Neuro: CN II-XII intact. Right lower extremity 4+/5 otherwise 5/5, equal bilaterally. Right hip incision covered with dry dressing, scant serous drainage at the upper part of the incision. Extremities: No edema, erythema, cyanosis Psych: Mood and affect appropriate. Normal speech. Objective <Teena Victoria APRN - Last Filed: 05/06/23 13:14> Labs 05/04/23 05:29 05/04/23 05:29 Labs: Laboratory Results - last 24 hr 05/05/23 05/05/23 05/06/23 16:26 20:24 05:24 POC Glucose 153 141 114 POC Glucose Comment 05/06/23 11:28 POC Glucose 222 POC Glucose Comment Glu2: cleaned meter Medications and Allergies Allergies and Active Meds: Allergies No Known Allergies Allergy (Verified 04/28/23 12:20) Active Medications Generic Name Dose Route Start Last Admin Trade Name Freq PRN Reason Stop Dose Admin Acetaminophen 500 mg 05/03/23 18:00 05/06/23 05:21 Acetaminophen 500 Mg Tablet PO 05/02/24 17:59 Not Given Q6HR TAVIA Hydrocodone Bitart/Acetaminophen 1 tab 05/03/23 17:11 05/06/23 09:19 Hydrocodone/Acetaminophen 5-325 Mg Tablet PO 1 tab Q4H PRN Administration Pain Al Hydrox/Mg Hydrox/Simethicone 30 ml 05/03/23 16:59 Mag Hydrox/Al Hydrox/Simeth 30 Ml Udc PO 05/02/24 16:58 Q4H PRN Indigestion Lipase/Protease/Amylase 2 cap 05/04/23 08:00 05/06/23 08:01 Lipa/Prot/Amyla 24-76-120k 1 Cap Capsule. PO 05/03/24 07:59 2 cap TID.WITH.MEALS TAVIA Administration Ascorbic Acid 500 mg 05/04/23 09:00 05/06/23 07:59 Ascorbic Acid 500 Mg Tablet PO 05/03/24 08:59 500 mg DAILY TAVIA Administration Aspirin 81 mg 05/04/23 09:00 05/06/23 08:00 Aspirin 81 Mg Tablet. PO 05/03/24 08:59 81 mg DAILY TAVIA Administration Atorvastatin Calcium 80 mg 05/03/23 21:00 05/05/23 20:23 Atorvastatin 80 Mg Tablet PO 05/02/24 20:59 80 mg QPM TAVIA Administration Bisacodyl 10 mg 05/03/23 16:59 Bisacodyl 10 Mg Supp.Rect [place] 05/02/24 16:58 DAILY PRN Constipation Calcium Carbonate 1 tab 05/04/23 08:00 05/06/23 07:59 Calcium Carbonate/Vitamin D3 500 Mg/200 Unit Tablet PO 05/03/24 07:59 1 tab TID.WITH.MEALS TAVIA Administration Cyclobenzaprine HCl 5 mg 05/04/23 10:30 05/05/23 20:24 Cyclobenzaprine 5 Mg Tablet PO 05/03/24 10:29 5 mg Q8H PRN Administration Muscle Spasm Docusate Sodium 100 mg 05/03/23 16:59 Docusate 100 Mg Capsule PO 05/02/24 16:58 BID PRN Constipation Docusate Sodium 283 mg 05/03/23 16:59 Docusate Enema 283 Mg/5 Ml Enema [place] 05/02/24 16:58 DAILY PRN Constipation Enoxaparin Sodium 40 mg 05/04/23 10:00 05/06/23 11:19 Enoxaparin 40 Mg/0.4 Ml Syringe SUBCUT 05/03/24 09:59 40 mg DAILY@1000 TAVIA Administration Ferrous Sulfate 324 mg 05/05/23 09:00 05/06/23 07:59 Ferrous Sulfate 324 Mg Tablet. PO 05/04/24 08:59 324 mg DAILY TAVIA Administration Insulin Aspart 0 units 05/03/23 17:00 05/06/23 07:56 Insulin Aspart 300 Units/3 Ml Insuln.Pen SUBCUT 05/02/24 16:59 7 units TID.WITH.MEALS TAVIA Administration Protocol Insulin Aspart 0 units 05/03/23 18:00 05/06/23 06:38 Insulin Aspart 300 Units/3 Ml Insuln.Pen SUBCUT 05/02/24 17:59 Not Given ACHS [facility] Protocol Insulin Glargine 7 units 05/03/23 21:00 05/06/23 07:59 Insulin Glargine 300 Units/3 Ml Insuln.Pen SUBCUT 05/02/24 20:59 7 units BID TAVIA Administration Lactulose 30 gm 05/03/23 16:59 Lactulose 20 Gm/30 Ml Udc PO 05/02/24 16:58 DAILY PRN Constipation Magnesium Hydroxide 30 ml 05/03/23 17:11 Magnesium Hydroxide Susp 30 Ml Udc PO 05/02/24 17:10 BID PRN Constipation Nitroglycerin 0.4 mg 05/03/23 17:11 Nitroglycerin 0.4 Mg Tab.Subl SUBLINGUAL 05/02/24 17:10 Q5M PRN Chest Pain Paroxetine HCl 30 mg 05/04/23 09:00 05/06/23 08:00 Paroxetine 30 Mg Tablet PO 05/03/24 08:59 30 mg DAILY TAVIA Administration Sennosides 2 tab 05/04/23 12:00 Sennosides 8.6 Mg Tablet PO 05/03/24 11:59 DAILY@12 PRN If no BM in 2 days Sodium Chloride 0 ml 05/03/23 16:59 Sodium Chloride 0.9 % 10 Ml Syringe IV-PUSH 05/02/24 16:58 PRN PRN Flush Tamsulosin HCl 0.4 mg 05/04/23 09:00 05/06/23 07:59 Tamsulosin 0.4 Mg Cap.Er.24h PO 05/03/24 08:59 0.4 mg DAILY ATVIA Administration Triamcinolone Acetonide 1 applic 05/03/23 17:11 Triamcinolone 0.1% Cream 15 Gm Tube TOPICAL 05/02/24 17:10 QID PRN Irritation Valsartan 160 mg 05/06/23 09:00 05/06/23 07:59 Valsartan 160 Mg Tablet PO 05/05/24 08:59 160 mg DAILY TAVIA Administration Assessment/Plan <Teena Victoria, [employer]ER - Last Filed: 05/06/23 13:14> Assessment/Plan (1) Closed intertrochanteric fracture of right hip: Code(s): S72.141A - Displaced intertrochanteric fracture of right femur, initial encounter for closed fracture Status: Acute (2) CAD (coronary artery disease): Code(s): I25.10 - Atherosclerotic heart disease of [place] coronary artery without angina pectoris Status: Acute (3) Mild left ventricular systolic dysfunction (LVSD): Code(s): I51.89 - Other ill-defined heart diseases Status: Acute (4) Diabetes: Code(s): E11.9 - Type 2 diabetes mellitus without complications Status: Acute (5) Impaired mobility and activities of daily living: Code(s): Z74.09 - Other reduced mobility; Z78.9 - Other specified health status Status: Acute (6) Uncontrolled diabetes mellitus: Status: Acute (7) Hypertension: Code(s): I10 - Essential (primary) hypertension Status: Acute (8) Two-vessel coronary artery disease: Code(s): I25.10 - Atherosclerotic heart disease of [place] coronary artery without angina pectoris Status: Acute (9) Postoperative pain, acute, hip: Code(s): G89.18 - Other acute postprocedural pain; M25.559 - Pain in unspecified hip Status: Acute Plan 88-year-old male presenting to acute inpatient rehabilitation unit with functional impairments secondary to right hip fracture s/p repair. Hospital course complicated by non-NE troponin elevation. He was found to have two-vessel heart disease. Intervention is planned in outpatient settings after he completes rehab course. * No acute events or concerns. Clinically stable at this time. * Doing well in therapy, improving. Ambulatory> 200 feet with a wheeled walker and standby assist. CGA/SBA for transfers. Will arrange an FI early next week, home Wednesday VS Wednesday. Patient education Pressure ulcer prophylaxis; encourage mobilization, frequent postural changes, pressure-relief techniques DVT prophylaxis: Lovenox SQ Encourage deep breathing exercise incentive spirometry. Monitor bladder. Toileting schedule. Continue current bladder management, with scans as needed and CIC if needed. Start bowel care program every day to obtain continence, prevent ileus. Maintain fall precautions Gait and balance retraining Functional training and self-care and home management, including activities of daily living and instrumental activities of daily living Provision of the necessary gait aids and functional adaptive equipment to enhance the patient's a functional christian Ensure adequate nutrition and hydration Sleep no issues Pain: Continue current regimen. Discharge planning Home with in 7 to 10 days. I spent greater than 15 minutes for services, including [id number] encounter with the patient, discussion of the case, plan of care, and exam; and [id number] activities, such as reviewing pertinent pmo consultant documentation, recent therapy notes, laboratory and radiology studies, and discussion of case with care team including physician, nursing, case operator, and therapists. More than 50 % of time was spent on patient/family counseling or coordination ofcare. <Fredi Medrano MD - Last Filed: 05/06/23 14:46> Assessment/Plan (1) Closed intertrochanteric fracture of right hip: (2) CAD (coronary artery disease): (3) Mild left ventricular systolic dysfunction (LVSD): (4) Diabetes: (5) Impaired mobility and activities of daily living: (6) Uncontrolled diabetes mellitus: (7) Hypertension: (8) Two-vessel coronary artery disease: (9) Postoperative pain, acute, hip: Plan: I reviewed the history and the relevant portions of the chart, including currentorders, allied health and pmo consultant notes, labs/imaging and plan of care as above. Documented By: Teena Victoria APRN 05/06/23 1 250 Signed By: <Electronically signed by AMADA Victoria> 05/06/23 1314 <Electronically signed by Fredi Medrano MD> 05/06/23 [id number] [facility] Work Phone: 1(913) 350-614710-26-2023 Consult note Author Vidya Robert [facility] May 06, 2023 1:15pm Note Date/Time May 04, 2023 3 :49pm [facility] [address] [place] [address] Hospitalist Consult Note Signed Patient: Ashwini Vickers MR#: [id number] : 1935 Acct:[id number] Age/Sex: 88 / M Adm Date: 3 Loc: Room: [address] [place] [address] Type: ADM IN Attending Dr: Fredi Medrano MD Copies to: MD Fredi Muñoz MD Lynn A Stackhouse-Roby, APRN Robert J Vaschak,DO~ HPI DATE OF CONSULTATION: 05/04/23 REQUESTING PROVIDER: Fredi Medrano Consult Narrative Reason for Consult: Diabetes type 1 HPI: This is a 82-year-old with past medical history significant of type 1 diabetes s/p pancreatectomy, splenectomy, gastric ulcers, BPH, hypertension, Iron deficiency anemia, protein calorie malnutrition, CAD, systolic heart failure. Initially presented to the hospital April 28 after sustaining a fall secondaryto hypoglycemia with resultant right hip fracture. Admitted for further management. Troponin and BNP were noted elevated with EKG noting ST abnormality. Seen by cardiology services under consultation. Echo with EF 40 to 45% with anterior wall hypokinesis. Underwent left heart cath with total LADocclusion, 80% diagonal occlusion, 50% left circumflex stenosis. Plan is for future intervention after rehab complete from hip fracture. Seen by orthopedic services under consultation and underwent ORIF with IMN of the right hip fracture April 30. Postoperative he was noted with labile and uncontrolled blood pressures, A1c was found to be 12.4. He was followed by therapy services with further recommendations for ongoing rehab. Ultimately admitted to the inpatient rehab unit May 03 for further management care. Hospitalist team is now consulted for ongoing management of diabetes. Patient seen and examined. Endorses postoperative right hip pain as anticipated. Denies chest pain or palpitations. No cough, dyspnea, or pain with inspiration. No abdominal pain or indigestion, constipation or diarrhea, nausea or vomiting. No dysuria or retention. No headache or dizziness. No fevers or chills. Review of Systems Review of Systems All other systems reviewed & are negative unless noted below or in HPI [facility] Medical History (Updated 05/04/23 @ 16:15 by Nidia Wright APRN) Anxiety and depression BPH (benign prostatic hyperplasia) CAD (coronary artery disease) Diabetes type 1 Hypertension Protein-calorie malnutrition, mild Surgical History (Updated 05/04/23 @ 16:15 by Nidia Wright APRN) H/O splenectomy History of pancreatectomy Family History Brother Cancer Son Sarcoma Social History Smoking Status: Current some day smoker Tobacco Type: cigars Substance Use Type: None Meds Medications and Allergies Allergies No Known Allergies Allergy (Verified 04/28/23 12:20) Home Medications [id number] 24,000-76,000-120,000 unit capsule,delayed rel (Creon) 2cap PO TID 04/28/23 [History Confirmed 05/03/23] paroxetine HCl 30 mg tablet 30 mg PO DAILY 04/28/23 [History Confirmed 05/03/23] tamsulosin 0.4 mg capsule 0.4 mg PO DAILY 04/28/23 [History Confirmed 05/03/23] acetaminophen 500 mg tablet 500 mg PO Q6H #0 tabs 05/03/23 [Rx Confirmed 05/03/23] ascorbic acid (vitamin C) 500 mg tablet (Vitamin C) 500 mg PO DAILY #0 tabs 05/03/23 [Rx Confirmed 05/03/23] aspirin 81 mg tablet,delayed release 81 mg PO DAILY #0 tabs 05/03/23 [Rx Confirmed 05/03/23] atorvastatin 80 mg tablet 80 mg PO QPM #0 tabs 05/03/23 [Rx Confirmed 05/03/23] calcium carbonate 500 mg-vitamin D3 5 mcg (200 unit) tablet (Oyster Shell Calcium-Vitamin D3) 1 tab PO TID.WITH.MEALS #0 tabs 05/03/23 [Rx Confirmed 05/03/23] enoxaparin 40 mg/0.4 mL subcutaneous syringe (Lovenox) 40 mg (0.4 mL) subcut DAILY@1000 15 days #0 mL 05/03/23 [Rx Confirmed 05/03/23] hydrocodone 5 mg-acetaminophen 325 mg tablet 1 tab PO Q4H PRN Pain 05/03/23 [History Confirmed 05/03/23] insulin aspart U-100 100 unit/mL (3 mL) subcutaneous pen (Novolog FlexPen U-100 Insulin aspart) See Protocol subcut ACHS 05/03/23 [History Confirmed 05/03/23] insulin glargine 100 unit/mL (3 mL) subcutaneous pen (Lantus Solostar U-100 Insulin) 7 units (0.07 mL) subcut BID #0 mL 05/03/23 [Rx Confirmed 05/03/23] magnesium hydroxide 400 mg/5 mL oral suspension (Milk of Magnesia) 30 ml PO BID PRN Constipation #0 mL 05/03/23 [Rx Confirmed 05/03/23] nitroglycerin 0.4 mg sublingual tablet 0.4 mg sublingual Q5M PRN Chest Pain #0 tabs 05/03/23 [Rx Confirmed 05/03/23] triamcinolone acetonide 0.1 % topical cream 1 applic topical QID PRN Irritation #0 grams 05/03/23 [Rx Confirmed 05/03/23] valsartan 80 mg tablet 80 mg PO DAILY #0 tabs 05/03/23 [Rx Confirmed 05/03/23] Active Medications: Active Medications Generic Name Dose Route Start Last Admin Trade Name Freq PRN Reason Stop Dose Admin Acetaminophen 500 mg 05/03/23 18:00 05/04/23 11:25 Acetaminophen 500 Mg Tablet PO 05/02/24 17:59 500 mg Q6HR TAVIA Administration Hydrocodone Bitart/Acetaminophen 1 tab 05/03/23 17:11 05/04/23 12:34 Hydrocodone/Acetaminophen 5-325 Mg Tablet PO 1 tab Q4H PRN Administration Pain Al Hydrox/Mg Hydrox/Simethicone 30 ml 05/03/23 16:59 Mag Hydrox/Al Hydrox/Simeth 30 Ml Udc PO 05/02/24 16:58 Q4H PRN Indigestion Lipase/Protease/Amylase 2 cap 05/04/23 08:00 05/04/23 12:33 Lipa/Prot/Amyla 24-76-120k 1 Cap Capsule. PO 05/03/24 07:59 2 cap TID.WITH.MEALS TAVIA Administration Ascorbic Acid 500 mg 05/04/23 09:00 05/04/23 08:10 Ascorbic Acid 500 Mg Tablet PO 05/03/24 08:59 500 mg DAILY TAVIA Administration Aspirin 81 mg 05/04/23 09:00 05/04/23 08:10 Aspirin 81 Mg Tablet. PO 05/03/24 08:59 81 mg DAILY TAVIA Administration Atorvastatin Calcium 80 mg 05/03/23 21:00 05/03/23 21:13 Atorvastatin 80 Mg Tablet PO 05/02/24 20:59 80 mg QPM TAVIA Administration Bisacodyl 10 mg 05/03/23 16:59 Bisacodyl 10 Mg Supp.Rect [place] 05/02/24 16:58 DAILY PRN Constipation Calcium Carbonate 1 tab 05/04/23 08:00 05/04/23 11:25 Calcium Carbonate/Vitamin D3 500 Mg/200 Unit Tablet PO 05/03/24 07:59 1 tab TID.WITH.MEALS TAVIA Administration Cyclobenzaprine HCl 5 mg 05/04/23 10:30 05/04/23 11:22 Cyclobenzaprine 5 Mg Tablet PO 05/03/24 10:29 5 mg Q8H PRN Administration Muscle Spasm Docusate Sodium 100 mg 05/03/23 16:59 Docusate 100 Mg Capsule PO 05/02/24 16:58 BID PRN Constipation Docusate Sodium 283 mg 05/03/23 16:59 Docusate Enema 283 Mg/5 Ml Enema [place] 05/02/24 16:58 DAILY PRN Constipation Enoxaparin Sodium 40 mg 05/04/23 10:00 05/04/23 11:25 Enoxaparin 40 Mg/0.4 Ml Syringe SUBCUT 05/03/24 09:59 40 mg DAILY@1000 TAVIA Administration Insulin Aspart 0 units 05/03/23 17:00 05/04/23 13:00 Insulin Aspart 300 Units/3 Ml Insuln.Pen SUBCUT 05/02/24 16:59 7 units TID.WITH.MEALS [facility] Administration Protocol Insulin Aspart 0 units 05/03/23 18:00 05/04/23 12:35 Insulin Aspart 300 Units/3 Ml Insuln.Pen SUBCUT 05/02/24 17:59 2 units ACHS [facility] Administration Protocol Insulin Glargine 7 units 05/03/23 21:00 05/04/23 08:16 Insulin Glargine 300 Units/3 Ml Insuln.Pen SUBCUT 05/02/24 20:59 7 units BID TAVIA Administration Lactulose 30 gm 05/03/23 16:59 Lactulose 20 Gm/30 Ml Udc PO 05/02/24 16:58 DAILY PRN Constipation Magnesium Hydroxide 30 ml 05/03/23 17:11 Magnesium Hydroxide Susp 30 Ml Udc PO 05/02/24 17:10 BID PRN Constipation Nitroglycerin 0.4 mg 05/03/23 17:11 Nitroglycerin 0.4 Mg Tab.Subl SUBLINGUAL 05/02/24 17:10 Q5M PRN Chest Pain Paroxetine HCl 30 mg 05/04/23 09:00 05/04/23 08:10 Paroxetine 30 Mg Tablet PO 05/03/24 08:59 30 mg DAILY TAVIA Administration Sennosides 2 tab 05/04/23 12:00 Sennosides 8.6 Mg Tablet PO 05/03/24 11:59 DAILY@12 PRN If no BM in 2 days Sodium Chloride 0 ml 05/03/23 16:59 Sodium Chloride 0.9 % 10 Ml Syringe IV-PUSH 05/02/24 16:58 PRN PRN Flush Tamsulosin HCl 0.4 mg 05/04/23 09:00 05/04/23 08:10 Tamsulosin 0.4 Mg Cap.Er.24h PO 05/03/24 08:59 0.4 mg DAILY TAVIA Administration Triamcinolone Acetonide 1 applic 05/03/23 17:11 Triamcinolone 0.1% Cream 15 Gm Tube TOPICAL 05/02/24 17:10 QID PRN Irritation Valsartan 80 mg 05/04/23 09:00 05/04/23 08:10 Valsartan 80 Mg Tablet PO 05/03/24 08:59 80 mg DAILY TAVIA Administration Exam Physical Exam Vital Signs: Temp Pulse Resp BP Pulse Ox O2 Del Method 97.6 F 54 L 16 161/84 H 97 Room Air 05/04/23 05:00 05/04/23 05:00 05/04/23 05:00 05/04/23 05:00 05/04/23 05:00 05/04/23 07:30 Narrative: CONST- alert, in bed, no acute distress, frail elderly HEAD- normocephalic and atraumatic EENT- sclera nonicteric and conjunctiva nonerythemic, moist oral mucosa, pharynxclear NECK- supple, no cervical lymphadenopathy CARDIAC- RRR no abnormal heart tones PULM- diminished without wheeze or rhonchi, RA, no accessory muscle use or coughnoted ABD- S/NT, NABS, thin/cachectic EXTREM- no edema BLE, calves nontender SKIN- W/D, good turgor, right hip dressing in place surgical site not seen MS- MAEx4 spontaneously with equal strength NEURO- A&Ox3, speech clear and tongue midline, equal facial symmetry PSYCH-mood and behavior appropriate Results Lab Results Labs: Laboratory Results - last 72 hr 05/04/23 11:30: POC Glucose 213 05/04/23 07:45: POC Glucose 197, POC Glucose Comment Glu2: cleaned meter 05/04/23 05:29: PHA Creatinine Clear 62.25, Sodium 134 L, Potassium 4.6, Chloride 102, Carbon Dioxide 28.0, Anion Gap 8.6, BUN 22, Creatinine 0.61 L, EstGFR (CKD- EPI) > 60.0, Glucose 120 H, Calcium 8.0 L, Total Bilirubin 0.5, AST 20,ALT 14, Alkaline Phosphatase 87, Total Protein 5.4 L, Albumin 2.9 L, Globulin 2.5, Albumin/Globulin Ratio 1.2, Prealbumin 10.2 L 05/04/23 05:29: Corrected WBC 7.2, Uncorrected WBC Count 7.2, RBC 3.46 L, Hgb 9.7 L, Hct 29.3 L, MCV 84.6, MCH 27.9, MCHC 33.0, RDW 16.8 H, Plt Count 218, MPV8.9, Neut % (Auto) 64.9, Lymph % (Auto) 23.0, [place] % (Auto) 9.9, Eos % (Auto) 1.5, Baso % (Auto) 0.7, Nucleat RBC Rel Count 0.2, Neut # (Auto) 4.6, Lymph # (Auto) 1.6, [place] # (Auto) 0.7, Eos # (Auto) 0.1, Baso # (Auto) 0.0 05/03/23 21:11: POC Glucose 385 05/03/23 17:52: POC Glucose 379 Assessment & Plan Assessment/Plan (1) Uncontrolled diabetes mellitus: (2) Two-vessel coronary artery disease: (3) Mild left ventricular systolic dysfunction (LVSD): (4) Diabetes: (5) Closed intertrochanteric fracture of right hip: (6) Postoperative anemia: (7) Osteoporosis: (8) Protein-calorie malnutrition, mild: (9) Hypertension: (10) BPH (benign prostatic hyperplasia): (11) Anxiety and depression: Plan Fall Right hip fracture s/p IMN 04/30/23 Osteoporosis Postoperative anemia Protein calorie malnutrition -Further POC per PMR team for rehabilitative therapy, pain control and bowel regimen, DVT PX enoxaparin, surgical wound care -Please defer any postoperative questions/concerns to orthopedics team -Calcium -Preop Hgb 11.5, trend labs, add ferrous sulfate -Supplement Chronic conditions 1. Type 1 diabetes, Hx pancreatectomy?A1c 12.4, SSI coverage, mealtime aspart, glargine, Creon. Will need further adjustments in insulin continue to monitor. Lability noted 2. CAD, HTN, SHF-plan for cardiac intervention after hip rehab, was seen by cardiology while inpatient and underwent cardiac catheterization demonstrating two-vessel CAD. Continue ASA, atorvastatin, valsartan 3. Anxiety/depression?paroxetine 4. BPH?tamsulosin Documented By: Nidia Wright APRN 04/12 11/01 1549 Signed By: <Electronically signed by AMADA Wright> 05/05/23 0855 <Electronically signed by Vidya Robert MD> 05/06/23 [address] [facility] Work Phone: 1(270) 219-567310-25-2023 Progress note Author Fredi Medrano [facility] May 05, 2023 1:10pm Note Date/Time May 05, 2023 1 :11pm [facility] EN[facility] [address] [place] [address] Physiatry(Rehab) Progress Note Signed Patient: Ashwini Vickers MR#: [id number] : 1935 Acct:[id number] Age/Sex: 88 / M Adm Date: 3 Loc: Room: [address] [place] [address] Type: ADM IN Attending Dr: Fredi Medrano MD Copies to: ~ Date of Service: 05/05/2023 Subjective Subjective Narrative: Mr. Vickers is a 88 year old male with past medical history of type 1 diabetes, s/p pancreatectomy and splenectomy, gastric ulcers, presented to acute inpatientrehabilitation unit with functional impairments secondary to right hip fracture s/p fall. Patient sustained a fall from standing after getting up too quickly from a chair. Patient does not recall whether he fainted but did not feel lightheaded send; unsure of head injury. Per report, he was hypoglycemic in 40s. Patient was brought to [facility] ER where imaging demonstrated mildly displaced right intertrochanteric hip fracture. There was also mild elevation in troponin at 35.5. Also elevated BNP. No prior cardiac history or cardiopulmonary symptoms. EKG demonstrated marked ST abnormality. Echo notable for EF of 40 to 45% with severe anterior wall hypokinesis. He was admitted under cardiology and orthopedic surgery consultation. Patient underwent left heart catheterization which was notable for 100% LAD occlusion, 80% D1 occlusion and 50% left circumflex stenosis. Cardiology does not believe he has had an NE and is planning on performing an intervention afterhe completes rehab. Patient underwent reduction internal fixation short intramedullary nailing of the right hip fracture on 04/30/[address] Conrad. Postop he is to weight-bearas tolerated to the right lower extremity. Placed on SQ Lovenox for DVT prophylaxis. Postop course complicated by poorly controlled/labile blood glucose levels. HisA1c level is > 12. INTERVAL HISTORY; Patient seen and evaluated this morning. In no distress. Has not complaints. Feels as though therapy continues to go well. Discussed cardiac history with patient today again. He denies chest pain, SOB. No acute concerns. Review of Systems Review of Systems All other systems reviewed & are negative unless noted below or in HPI Exam Physical Exam Vital Signs: Temp Pulse Resp BP Pulse Ox O2 Del Method 98.6 F 65 17 172/88 H 100 Room Air 05/05/23 05:00 05/05/23 05:00 05/05/23 05:00 05/05/23 05:00 05/05/23 05:00 05/05/23 11:05 Narrative: General: Awake, A&O x 3, pleasant, cooperative, well nourished. Resting comfortably in bed HENT: NC, AT Eyes: No scleral icterus Neck: Supple Cardio: Extremities well perfused Respiratory: No evidence of respiratory distress GI: Soft, nontender, nondistended Neuro: CN II-XII intact. Strength 5/5 right upper and lower extremities. Strength 5/5 left upper and lower extremities.Moves all extremities spontaneously. Sensation intact bilateral lower extremities. Extremities: No edema, erythema, cyanosis Psych: Affect, speech and movements normal. Mood congruent Objective Labs 05/04/23 05:29 05/04/23 05:29 Labs: Laboratory Results - last 24 hr 05/04/23 05/04/23 05/04/23 20:23 21:50 22:42 POC Glucose 210 125 124 POC Glucose Comment 05/05/23 05/05/23 06:09 11:48 POC Glucose 106 224 POC Glucose Comment Glu2: cleaned meter Medications and Allergies Allergies and Active Meds: Allergies No Known Allergies Allergy (Verified 04/28/23 12:20) Active Medications Generic Name Dose Route Start Last Admin Trade Name Che PRN Reason Stop Dose Admin Acetaminophen 500 mg 05/03/23 18:00 05/05/23 11:34 Acetaminophen 500 Mg Tablet PO 05/02/24 17:59 500 mg Q6HR TAVIA Administration Hydrocodone Bitart/Acetaminophen 1 tab 05/03/23 17:11 05/05/23 11:34 Hydrocodone/Acetaminophen 5-325 Mg Tablet PO 1 tab Q4H PRN Administration Pain Al Hydrox/Mg Hydrox/Simethicone 30 ml 05/03/23 16:59 Mag Hydrox/Al Hydrox/Simeth 30 Ml Udc PO 05/02/24 16:58 Q4H PRN Indigestion Lipase/Protease/Amylase 2 cap 05/04/23 08:00 05/05/23 11:35 Lipa/Prot/Amyla 24-76-120k 1 Cap Capsule. PO 05/03/24 07:59 2 cap TID.WITH.MEALS TAVIA Administration Ascorbic Acid 500 mg 05/04/23 09:00 05/05/23 09:17 Ascorbic Acid 500 Mg Tablet PO 05/03/24 08:59 500 mg DAILY TAVIA Administration Aspirin 81 mg 05/04/23 09:00 05/05/23 09:18 Aspirin 81 Mg Tablet. PO 05/03/24 08:59 81 mg DAILY TAVIA Administration Atorvastatin Calcium 80 mg 05/03/23 21:00 05/04/23 20:29 Atorvastatin 80 Mg Tablet PO 05/02/24 20:59 80 mg QPM TAVIA Administration Bisacodyl 10 mg 05/03/23 16:59 Bisacodyl 10 Mg Supp.Rect [place] 05/02/24 16:58 DAILY PRN Constipation Calcium Carbonate 1 tab 05/04/23 08:00 05/05/23 11:34 Calcium Carbonate/Vitamin D3 500 Mg/200 Unit Tablet PO 05/03/24 07:59 1 tab TID.WITH.MEALS TAVIA Administration Cyclobenzaprine HCl 5 mg 05/04/23 10:30 05/05/23 06:07 Cyclobenzaprine 5 Mg Tablet PO 05/03/24 10:29 5 mg Q8H PRN Administration Muscle Spasm Docusate Sodium 100 mg 05/03/23 16:59 Docusate 100 Mg Capsule PO 05/02/24 16:58 BID PRN Constipation Docusate Sodium 283 mg 05/03/23 16:59 Docusate Enema 283 Mg/5 Ml Enema [place] 05/02/24 16:58 DAILY PRN Constipation Enoxaparin Sodium 40 mg 05/04/23 10:00 05/05/23 09:19 Enoxaparin 40 Mg/0.4 Ml Syringe SUBCUT 05/03/24 09:59 40 mg DAILY@1000 TAVIA Administration Ferrous Sulfate 324 mg 05/05/23 09:00 05/05/23 09:17 Ferrous Sulfate 324 Mg Tablet.Dr PO 05/04/24 08:59 324 mg DAILY TAVIA Administration Insulin Aspart 0 units 05/03/23 17:00 05/05/23 13:02 Insulin Aspart 300 Units/3 Ml Insuln.Pen SUBCUT 05/02/24 16:59 6 units TID.WITH.MEALS [facility] Administration Protocol Insulin Aspart 0 units 05/03/23 18:00 05/05/23 13:03 Insulin Aspart 300 Units/3 Ml Insuln.Pen SUBCUT 05/02/24 17:59 2 units ACHS [facility] Administration Protocol Insulin Glargine 7 units 05/03/23 21:00 05/05/23 09:19 Insulin Glargine 300 Units/3 Ml Insuln.Pen SUBCUT 05/02/24 20:59 7 units BID TAVIA Administration Lactulose 30 gm 05/03/23 16:59 Lactulose 20 Gm/30 Ml Udc PO 05/02/24 16:58 DAILY PRN Constipation Magnesium Hydroxide 30 ml 05/03/23 17:11 Magnesium Hydroxide Susp 30 Ml Udc PO 05/02/24 17:10 BID PRN Constipation Nitroglycerin 0.4 mg 05/03/23 17:11 Nitroglycerin 0.4 Mg Tab.Subl SUBLINGUAL 05/02/24 17:10 Q5M PRN Chest Pain Paroxetine HCl 30 mg 05/04/23 09:00 05/05/23 09:17 Paroxetine 30 Mg Tablet PO 05/03/24 08:59 30 mg DAILY TAVIA Administration Sennosides 2 tab 05/04/23 12:00 Sennosides 8.6 Mg Tablet PO 05/03/24 11:59 DAILY@12 PRN If no BM in 2 days Sodium Chloride 0 ml 05/03/23 16:59 Sodium Chloride 0.9 % 10 Ml Syringe IV-PUSH 05/02/24 16:58 PRN PRN Flush Tamsulosin HCl 0.4 mg 05/04/23 09:00 05/05/23 09:17 Tamsulosin 0.4 Mg Cap.Er.24h PO 05/03/24 08:59 0.4 mg DAILY TAVIA Administration Triamcinolone Acetonide 1 applic 05/03/23 17:11 Triamcinolone 0.1% Cream 15 Gm Tube TOPICAL 05/02/24 17:10 QID PRN Irritation Valsartan 80 mg 05/04/23 09:00 05/05/23 09:17 Valsartan 80 Mg Tablet PO 05/03/24 08:59 80 mg DAILY TAVIA Administration Assessment/Plan Assessment/Plan (1) Closed intertrochanteric fracture of right hip: Code(s): S72.141A - Displaced intertrochanteric fracture of right femur, initial encounter for closed fracture Status: Acute (2) CAD (coronary artery disease): Code(s): I25.10 - Atherosclerotic heart disease of [place] coronary artery without angina pectoris Status: Acute (3) Mild left ventricular systolic dysfunction (LVSD): Code(s): I51.89 - Other ill-defined heart diseases Status: Acute (4) Diabetes: Code(s): E11.9 - Type 2 diabetes mellitus without complications Status: Acute (5) Impaired mobility and activities of daily living: Code(s): Z74.09 - Other reduced mobility; Z78.9 - Other specified health status Status: Acute (6) Uncontrolled diabetes mellitus: Status: Acute (7) Hypertension: Code(s): I10 - Essential (primary) hypertension Status: Acute (8) Two-vessel coronary artery disease: Code(s): I25.10 - Atherosclerotic heart disease of [place] coronary artery without angina pectoris Status: Acute (9) Postoperative pain, acute, hip: Code(s): G89.18 - Other acute postprocedural pain; M25.559 - Pain in unspecified hip Status: Acute Plan 88-year-old male presenting to acute inpatient rehabilitation unit with functional impairments secondary to right hip fracture s/p repair. Hospital course complicated by non-NE troponin elevation. He was found to have two-vessel heart disease. Intervention is planned in outpatient settings after he completes rehab course. * Continue heart regimen per cardiology recommendations. Monitor cardiopulmonary status closely. Repeat EKG if complaints of chest pain, palpitations, dizziness. Plan for intervention after rehab. * Continue Lovenox for DVT prophylaxis * Uncontrolled diabetes. A1c levels >12, labile blood glucose levels. Trend FSBS closely. Adjust diabetic regimen as required. * Add cyclobenzaprine 5 mg 3 times daily as needed for muscle spasms. Patient education Pressure ulcer prophylaxis; encourage mobilization, frequent postural changes, pressure-relief techniques DVT prophylaxis: Lovenox SQ Encourage deep breathing exercise incentive spirometry. Monitor bladder. Toileting schedule. Continue current bladder management, with scans as needed and CIC if needed. Start bowel care program every day to obtain continence, prevent ileus. Maintain fall precautions Gait and balance retraining Functional training and self-care and home management, including activities of daily living and instrumental activities of daily living Provision of the necessary gait aids and functional adaptive equipment to enhance the patient's a functional christian Ensure adequate nutrition and hydration Sleep no issues Pain: Continue current regimen. Discharge planning Home with in 7 to 10 days. Plan: I completed a substantive portion of this encounter, the medical decision makingportion of this note in its entirety, including Allied health note review, nursing note review, pmo consultant note review, discussion with nursing and case management, and more than 50% of my time was spent on counseling and coordination of care, time spent 25 minutes Patient was personally seen by me, Dr. Medrano, on the day of encounter, reviewed the history and the relevant portions of the chart, including current orders, allied health and pmo consultant notes, labs/imaging and performed [place] elements of exam and I formulated the plan of care and facilitated the medical decision making. Documented By: Fredi Medrano MD [id number] Signed By: <Electronically signed by Fredi Medrano MD> 05/05/23 [facility] Work Phone: [phone]) 798-481310-25-2023 History and physical note Author Fredi Medrano [facility] May 05, 2023 10:01am Note Date/Time May 04, 2023 1 1:35am [facility] ENTER [address] [place], [place] [id number] Physiatry (Rehab) H&P Signed Patient: Ashwini Vickers MR#: [id number] : 1935 Acct:[id number] Age/Sex: 88 / M Adm Date: 3 Loc: Room: [address] [place] [address] Type: ADM IN Attending Dr: Fredi Medrano MD Copies to: MD Teena Coyle APRN Robert J Vaschak,~ Date of Service: 05/04/2023 HPI The patient was seen and examined on: 05/04/23 History of Present Illness: Mr. Vickers is a 88 year old male with past medical history of type 1 diabetes, s/p pancreatectomy and splenectomy, gastric ulcers, presented to acute inpatientrehabilitation unit with functional impairments secondary to right hip fracture s/p fall. Patient sustained a fall from standing after getting up too quickly from a chair. Patient does not recall whether he fainted but did not feel lightheaded send; unsure of head injury. Per report, he was hypoglycemic in 40s. Patient was brought to [facility] ER where imaging demonstrated mildly displaced right intertrochanteric hip fracture. There was also mild elevation in troponin at 35.5. Also elevated BNP. No prior cardiac history or cardiopulmonary symptoms. EKG demonstrated marked ST abnormality. Echo notable for EF of 40 to 45% with severe anterior wall hypokinesis. He was admitted under cardiology and orthopedic surgery consultation. Patient underwent left heart catheterization which was notable for 100% LAD occlusion, 80% D1 occlusion and 50% left circumflex stenosis. Cardiology does not believe he has had an NE and is planning on performing an intervention afterhe completes rehab. Patient underwent reduction internal fixation short intramedullary nailing of the right hip fracture on 04/30/[address] Conrad. Postop he is to weight-bearas tolerated to the right lower extremity. Placed on SQ Lovenox for DVT prophylaxis. Postop course complicated by poorly controlled/labile blood glucose levels. HisA1c level is > 12. Exam this morning patient is alert, pleasant, oriented x3. Reports expected right hip/groin pain and associated spasms. Pain is worse with activity. Righthip incision without signs of infection. Minimal serous drainage at the top of the incision. He reports no cardiopulmonary complaints such as chest pain, palpitation, shortness of breath. Lung sounds are clear to auscultation, heart rate and rhythm regular. Vitals within normal limits. At baseline patient is very active and independent with ADLs/IADLs. His lives with in a two-story home. Does not use assistive devices. [facility] Medical History Anxiety and depression BPH (benign prostatic hyperplasia) CAD (coronary artery disease) Diabetes type 1 Hypertension Protein-calorie malnutrition, mild Surgical History H/O splenectomy History of pancreatectomy Family History Brother Cancer Son Sarcoma Social History Smoking Status: Current some day smoker Tobacco Type: cigars Substance Use Type: None Review of Systems Review of Systems All other systems reviewed & are negative unless noted below or in HPI Meds Medications and Allergies Allergies No Known Allergies Allergy (Verified 04/28/23 12:20) Home and Active Meds: Home Medications [id number] 24,000-76,000-120,000 unit capsule,delayed rel (Creon) 2cap PO TID 04/28/23 [History Confirmed 05/03/23] paroxetine HCl 30 mg tablet 30 mg PO DAILY 04/28/23 [History Confirmed 05/03/23] tamsulosin 0.4 mg capsule 0.4 mg PO DAILY 04/28/23 [History Confirmed 05/03/23] acetaminophen 500 mg tablet 500 mg PO Q6H #0 tabs 05/03/23 [Rx Confirmed 05/03/23] ascorbic acid (vitamin C) 500 mg tablet (Vitamin C) 500 mg PO DAILY #0 tabs 05/03/23 [Rx Confirmed 05/03/23] aspirin 81 mg tablet,delayed release 81 mg PO DAILY #0 tabs 05/03/23 [Rx Confirmed 05/03/23] atorvastatin 80 mg tablet 80 mg PO QPM #0 tabs 05/03/23 [Rx Confirmed 05/03/23] calcium carbonate 500 mg-vitamin D3 5 mcg (200 unit) tablet (Oyster Shell Calcium-Vitamin D3) 1 tab PO TID.WITH.MEALS #0 tabs 05/03/23 [Rx Confirmed 05/03/23] enoxaparin 40 mg/0.4 mL subcutaneous syringe (Lovenox) 40 mg (0.4 mL) subcut DAILY@1000 15 days #0 mL 05/03/23 [Rx Confirmed 05/03/23] hydrocodone 5 mg-acetaminophen 325 mg tablet 1 tab PO Q4H PRN Pain 05/03/23 [History Confirmed 05/03/23] insulin aspart U-100 100 unit/mL (3 mL) subcutaneous pen (Novolog FlexPen U-100 Insulin aspart) See Protocol subcut ACHS 05/03/23 [History Confirmed 05/03/23] insulin glargine 100 unit/mL (3 mL) subcutaneous pen (Lantus Solostar U-100 Insulin) 7 units (0.07 mL) subcut BID #0 mL 05/03/23 [Rx Confirmed 05/03/23] magnesium hydroxide 400 mg/5 mL oral suspension (Milk of Magnesia) 30 ml PO BID PRN Constipation #0 mL 05/03/23 [Rx Confirmed 05/03/23] nitroglycerin 0.4 mg sublingual tablet 0.4 mg sublingual Q5M PRN Chest Pain #0 tabs 05/03/23 [Rx Confirmed 05/03/23] triamcinolone acetonide 0.1 % topical cream 1 applic topical QID PRN Irritation #0 grams 05/03/23 [Rx Confirmed 05/03/23] valsartan 80 mg tablet 80 mg PO DAILY #0 tabs 05/03/23 [Rx Confirmed 05/03/23] Active Medications Acetaminophen (Acetaminophen 500 Mg Tablet) 500 mg PO Q6HR TAVIA Stop: 05/02/24 17:59 Last Admin: 05/04/23 05:22 Dose: 500 mg Hydrocodone Bitart/Acetaminophen (Hydrocodone/Acetaminophen 5-325 Mg Tablet) 1 tab PO Q4H PRN PRN Reason: Pain Last Admin: 05/04/23 08:14 Dose: 1 tab Al Hydrox/Mg Hydrox/Simethicone (Mag Hydrox/Al Hydrox/Simeth 30 Ml Udc) 30 ml PO Q4H PRN PRN Reason: Indigestion Stop: 05/02/24 16:58 Lipase/Protease/Amylase (Lipa/Prot/Amyla 2476-120k 1 Cap Capsule.) 2 cap PO TID.WITH.MEALS [facility] Stop: 05/03/24 07:59 Last Admin: 05/04/23 08:18 Dose: 2 cap Ascorbic Acid (Ascorbic Acid 500 Mg Tablet) 500 mg PO DAILY TAVIA Stop: 05/03/24 08:59 Last Admin: 05/04/23 08:10 Dose: 500 mg Aspirin (Aspirin 81 Mg Tablet.) 81 mg PO DAILY TAVIA Stop: 05/03/24 08:59 Last Admin: 05/04/23 08:10 Dose: 81 mg Atorvastatin Calcium (Atorvastatin 80 Mg Tablet) 80 mg PO QPM [facility] Stop: 05/02/24 20:59 Last Admin: 05/03/23 21:13 Dose: 80 mg Bisacodyl (Bisacodyl 10 Mg Supp.Rect) 10 mg [place] DAILY PRN PRN Reason: Constipation Stop: 05/02/24 16:58 Calcium Carbonate (Calcium Carbonate/Vitamin D3 500 Mg/200 Unit Tablet) 1 tab PO TID.WITH.MEALS [facility] Stop: 05/03/24 07:59 Last Admin: 05/04/23 08:10 Dose: 1 tab Cyclobenzaprine HCl (Cyclobenzaprine 5 Mg Tablet) 5 mg PO Q8H PRN PRN Reason: Muscle Spasm Stop: 05/03/24 10:29 Docusate Sodium (Docusate 100 Mg Capsule) 100 mg PO BID PRN PRN Reason: Constipation Stop: 05/02/24 16:58 Docusate Sodium (Docusate Enema 283 Mg/5 Ml Enema) 283 mg [place] DAILY PRN PRN Reason: Constipation Stop: 05/02/24 16:58 Enoxaparin Sodium (Enoxaparin 40 Mg/0.4 Ml Syringe) 40 mg SUBCUT DAILY@1000 [facility] Stop: 05/03/24 09:59 Insulin Aspart (Insulin Aspart 300 Units/3 Ml Insuln.Pen) 0 units SUBCUT TID.WITH.MEALS [facility]; Protocol Stop: 05/02/24 16:59 Last Admin: 05/04/23 08:27 Dose: 7 units Insulin Aspart (Insulin Aspart 300 Units/3 Ml Insuln.Pen) 0 units SUBCUT ACHS [facility]; Protocol Stop: 05/02/24 17:59 Last Admin: 05/04/23 08:27 Dose: 1 units Insulin Glargine (Insulin Glargine 300 Units/3 Ml Insuln.Pen) 7 units SUBCUT BID TAVIA Stop: 05/02/24 20:59 Last Admin: 05/04/23 08:16 Dose: 7 units Lactulose (Lactulose 20 Gm/30 Ml Udc) 30 gm PO DAILY PRN PRN Reason: Constipation Stop: 05/02/24 16:58 Magnesium Hydroxide (Magnesium Hydroxide Susp 30 Ml Udc) 30 ml PO BID PRN PRN Reason: Constipation Stop: 05/02/24 17:10 Nitroglycerin (Nitroglycerin 0.4 Mg Tab.Subl) 0.4 mg SUBLINGUAL Q5M PRN PRN Reason: Chest Pain Stop: 05/02/24 17:10 Paroxetine HCl (Paroxetine 30 Mg Tablet) 30 mg PO DAILY [facility] Stop: 05/03/24 08:59 Last Admin: 05/04/23 08:10 Dose: 30 mg Sennosides (Sennosides 8.6 Mg Tablet) 2 tab PO DAILY@12 PRN PRN Reason: If no BM in 2 days Stop: 05/03/24 11:59 Sodium Chloride (Sodium Chloride 0.9 % 10 Ml Syringe) 0 ml IV-PUSH PRN PRN PRN Reason: Flush Stop: 05/02/24 16:58 Tamsulosin HCl (Tamsulosin 0.4 Mg Cap.Er.24h) 0.4 mg PO DAILY [facility] Stop: 05/03/24 08:59 Last Admin: 05/04/23 08:10 Dose: 0.4 mg Triamcinolone Acetonide (Triamcinolone 0.1% Cream 15 Gm Tube) 1 applic TOPICAL QID PRN PRN Reason: Irritation Stop: 05/02/24 17:10 Valsartan (Valsartan 80 Mg Tablet) 80 mg PO DAILY [facility] Stop: 05/03/24 08:59 Last Admin: 05/04/23 08:10 Dose: 80 mg Exam Physical Exam Vital Signs: Temp Pulse Resp BP Pulse Ox O2 Del Method 97.6 F 54 L 16 161/84 H 97 Room Air 05/04/23 05:00 05/04/23 05:00 05/04/23 05:00 05/04/23 05:00 05/04/23 05:00 05/04/23 05:00 Narrative: General: Awake, alert, oriented x3 HENT: Normal to inspection, normocephalic, atraumatic Eyes: PERRL, normal conjunctiva and sclera Neck: Normal ROM, normal visual inspection. Trachea midline. Cardio: Regular heart rate and rhythm Respiratory: Clear to auscultation bilaterally. Normal respiratory effort. No respiratory distress. GI: Abdomen soft, nontender, nondistended, active bowel sounds x4 quadrants Neuro: CN II-XII intact. Right lower extremity 4+/5 otherwise 5/5, equal bilaterally. Right hip incision covered with dry dressing, scant serous drainage at the upper part of the incision. Extremities: No edema, erythema, cyanosis Psych: Mood and affect appropriate. Normal speech. Results Labs Labs: Laboratory Results - last 24 hr 05/03/23 05/03/23 05/04/23 17:52 21:11 05:29 Corrected WBC 7.2 Uncorrected WBC Count 7.2 RBC 3.46 L Hgb 9.7 L Hct 29.3 L MCV 84.6 MCH 27.9 MCHC 33.0 RDW 16.8 H Plt Count 218 MPV 8.9 Neut % (Auto) 64.9 Lymph % (Auto) 23.0 [place] % (Auto) 9.9 Eos % (Auto) 1.5 Baso % (Auto) 0.7 Nucleat RBC Rel Count 0.2 Neut # (Auto) 4.6 Lymph # (Auto) 1.6 [place] # (Auto) 0.7 Eos # (Auto) 0.1 Baso # (Auto) 0.0 PHA Creatinine Clear Sodium Potassium Chloride Carbon Dioxide Anion Gap BUN Creatinine Est GFR (CKD-EPI) Glucose POC Glucose 379 385 POC Glucose Comment Calcium Total Bilirubin AST ALT Alkaline Phosphatase Total Protein Albumin Globulin Albumin/Globulin Ratio Prealbumin 05/04/23 05/04/23 05:29 07:45 Corrected WBC Uncorrected WBC Count RBC Hgb Hct MCV MCH MCHC RDW Plt Count MPV Neut % (Auto) Lymph % (Auto) [place] % (Auto) Eos % (Auto) Baso % (Auto) Nucleat RBC Rel Count Neut # (Auto) Lymph # (Auto) [place] # (Auto) Eos # (Auto) Baso # (Auto) PHA Creatinine Clear 62.25 Sodium 134 L Potassium 4.6 Chloride 102 Carbon Dioxide 28.0 Anion Gap 8.6 BUN 22 Creatinine 0.61 L Est GFR (CKD-EPI) > 60.0 Glucose 120 H POC Glucose 197 POC Glucose Comment Glu2: cleaned meter Calcium 8.0 L Total Bilirubin 0.5 AST 20 ALT 14 Alkaline Phosphatase 87 Total Protein 5.4 L Albumin 2.9 L Globulin 2.5 Albumin/Globulin Ratio 1.2 Prealbumin 10.2 L Additional Results Results Comment: I reviewed clinical lab tests, radiology reports and obtained and summated medical records and have ordered follow up lab tests and imaging studies as needed for rehabilitation care. Functional Status Prior Level of Function Narrative: Independent at baseline. No assistive device use. Current Level of Function Narrative: Ambulatory 30 feet with a rolling walker and contact-guard assist, supervision for bed mobility, CGA for chair transfer. Individualized Plan of Care Individualized Plan of Care Plan of Care: Individualized Overall Plan of Care: Admit Date/Time: 05/03/23 Expected LOS: 14 Days Expected Discharge Destination: Home Rehabilitation [facility]: 8.11 Primary Diagnosis: as above Patient?s/Family?s anticipated outcomes/personal goals: To have patient become more independent and to return home. Medical/ Functional Prognosis: Good Anticipated Functional Outcomes/Goals and Interventions: -Therapy Functional Outcome/Goal: Mobility/Locomotion: Patient likely to be independent with ambulation with assistive device. Anticipated interventions: Physician management, PT, OT, Dietitian, Rehab Nursing - Therapy Functional Outcome/Goal: Self Care: Patient likely to be functionally independent for activities of daily living using assistive / adaptive equipment as needed. Anticipated interventions: Physician management, PT, OT, Dietitian, Rehab Nursing - Therapy Functional Outcome/Goal: Bladder/Bowel Management: Patient likely to be independent with bladder care and independent with bowel care. Anticipated interventions: Physician management, PT, OT, Dietitian, Rehab Nursing -Therapy Functional Outcome/Goal: Communication/Cognition: Patient will be able to communicate fully and be safe cognitively. Anticipated interventions: Physician management, PT, OT, Dietitian, Rehab Nursing -Therapy Functional Outcome/Goal: Patient will be independent for bed mobility and transfers Anticipated interventions: Physician management, PT, OT, Dietitian, Rehab Nursing -Therapy Functional Outcome/Goal: Patient will improve endurance to be able to tolerate all daily self care activities and avocational activities. Anticipated interventions: Physician management, PT, OT, Nutrition, Rehab Nursing -Therapy Functional Outcome/Goal: Patient will understand and assimilate / integrate education regarding management of their medical conditions to maintainhealth and wellbeing. Anticipated interventions: Physician management, PT, OT, Dietitian, Rehab Nursing Required Therapy PT: 1.5 hour per day at least 5 days per week with additional therapy on as needed basis. Comments: PT to improve pt's strength, endurance, bed mobility, transfers (sit-stand), standing balance, gait quality on level surfaces and stairs, coordination and functional ADL skills. Will also work to improve pt's safety awareness during transfers and ambulation. OT: 1.5 hour per day at least 5 days per week with additional therapy on as needed basis. Comments: OT for basic ADL re-training (bathing, dressing, toileting, continence, grooming, feeding, transferring), to increase activity tolerance andfunctional mobility and to evaluate for adaptive and assistive devices. Will work to improve pt's endurance and educate pt on fall prevention and energy conservation techniques-pacing strategies and proper breathing techniques duringfunctional tasks. Other: Nutrition, Rehab nursing, Wound, P&O RATIONALE FOR IRF ADMISSION: Patient has both medical and functional complexities that require 24 hour daily monitoring and intervention from Tube Trailer Filler as well as other consulting physicians including internal medicine as well as 24 hour daily displayer nursing - for medical safe / optimal management. Patient requires interdisciplinary therapy team rehabilitation care including OT, PT, SW, Rehab Nursing, requires and can tolerate at least 3 hoursof daily OT and PT therapy at least 5 days weekly. The following medical conditions significantly impact the rehabilitation process and are being addressed daily and can not be managed at home or in a lesser intense medical setting: Refer to above problem oriented plan of care Assessment/Plan (1) Closed intertrochanteric fracture of right hip: Code(s): S72.141A - Displaced intertrochanteric fracture of right femur, initial encounter for closed fracture Status: Acute (2) CAD (coronary artery disease): Code(s): I25.10 - Atherosclerotic heart disease of [place] coronary artery without angina pectoris Status: Acute (3) Mild left ventricular systolic dysfunction (LVSD): Code(s): I51.89 - Other ill-defined heart diseases Status: Acute (4) Diabetes: Code(s): E11.9 - Type 2 diabetes mellitus without complications Status: Acute (5) Impaired mobility and activities of daily living: Code(s): Z74.09 - Other reduced mobility; Z78.9 - Other specified health status Status: Acute (6) Uncontrolled diabetes mellitus: Status: Acute (7) Hypertension: Code(s): I10 - Essential (primary) hypertension Status: Acute (8) Two-vessel coronary artery disease: Code(s): I25.10 - Atherosclerotic heart disease of [place] coronary artery without angina pectoris Status: Acute (9) Postoperative pain, acute, hip: Code(s): G89.18 - Other acute postprocedural pain; M25.559 - Pain in unspecified hip Status: Acute Plan 88-year-old male presenting to acute inpatient rehabilitation unit with functional impairments secondary to right hip fracture s/p repair. Hospital course complicated by non-NE troponin elevation. He was found to have two-vessel heart disease. Intervention is planned in outpatient settings after he completes rehab course. * Continue heart regimen per cardiology recommendations. Monitor cardiopulmonary status closely. Repeat EKG if complaints of chest pain, palpitations, dizziness. * Continue Lovenox for DVT prophylaxis * Uncontrolled diabetes. A1c levels >12, labile blood glucose levels. Trend FSBS closely. Adjust diabetic regimen as required. * Add cyclobenzaprine 5 mg 3 times daily as needed for muscle spasms. Patient education Pressure ulcer prophylaxis; encourage mobilization, frequent postural changes, pressure-relief techniques DVT prophylaxis: Lovenox SQ Encourage deep breathing exercise incentive spirometry. Monitor bladder. Toileting schedule. Continue current bladder management, with scans as needed and CIC if needed. Start bowel care program every day to obtain continence, prevent ileus. Maintain fall precautions Gait and balance retraining Functional training and self-care and home management, including activities of daily living and instrumental activities of daily living Provision of the necessary gait aids and functional adaptive equipment to enhance the patient's a functional christian Ensure adequate nutrition and hydration Sleep no issues Pain: Continue current regimen. Discharge planning Home with in 7 to 10 days. I spent greater than 45 minutes for services, including awom-zr-[id number] encounter with the patient, discussion of the case, plan of care, and exam; and [id number] activities, such as reviewing pertinent pmo consultant documentation, recent therapy notes, laboratory and radiology studies, and discussion of case with care team including physician, nursing, case operator, and therapists. More than 50 % of time was spent on patient/family counseling or coordination ofcare. Plan: I completed a substantive portion of this encounter, the medical decision makingportion of this note in its entirety, including Allied health note review, nursing note review, pmo consultant note review, discussion with nursing and case management, and more than 50% of my time was spent on counseling and coordination of care, time spent 70 minutes Patient was personally seen by me, Dr. Medrano, on the day of encounter, within 24 hours of rehab admission, reviewed the history and the relevant portions of the chart, including current orders, allied health and pmo consultant notes, labs/imaging and performed smyth elements of exam and I formulated the planof care and facilitated the medical decision making. Documented By: Teena Victoria APRN 05/04/23 1 122 Signed By: <Electronically signed by AMADA Victoria> 05/04/23 1209 <Electronically signed by Fredi Medrano MD> 05/05/23 [facility] [facility] Work Phone: 1([phone]) 990-251610-23-2023 Progress note Author Ashwini Conrad [facility] May 03, 2023 12:02pm Note Date/Time May 03, 2023 1 1:49am [facility] ENTER [address] [place] [address] Orthopedic Progress Note Signed Patient: Ashwini Vickers MR#: [id number] : 1935 Acct:[id number] Age/Sex: 88 / M Adm Date: 3 Loc: Room: [address] [place] [address] Type: ADM IN Attending Dr: Humberto Diaz MD Copies to: ~ Date of Service: 05/03/2023 Subjective Subjective Interval History: Patient reports he was able to sleep on side last night without pain Patient continues to work hard with therapy on his mobility Tolerating diet, N/ V, denies CP/ SOB Continues to get lightheaded when getting up but tries to get up slowly to avoidpassing out Exam Physical Exam Vital Signs: Temp Pulse Resp BP Pulse Ox O2 Del Method O2 Flow Rate 97.8 F 67 18 124/71 95 Room Air 6 05/03/23 07:49 05/03/23 07:49 05/03/23 07:49 05/03/23 08:49 05/03/23 07:49 05/03/23 07:49 05/02/23 00:00 Narrative: GENERAL Awake, alert, oriented, and in no acute distress LOWER EXTREMITY Post injury/ operative incision is clean dry and intact without evidence of purulent drainage, cellulitis, or infection. Bandage clean, dry, intact right hip Positive mild swelling right lower extremity as expected in the postoperative period Positive mild ecchymosis right hip as expected in the postoperative period Positive tenderness to palpation right hip as expected in the postoperative period R LE clinically equal limb length and rotation compared to L LE Negative/ resolved pain with axial load R hip Negative/ resolved pain with log roll maneuver R hip R Dorsalis pedis pulse 2+ and intact R Sensory intact to light touch distally at the tibial/ sural/ saphenous/ deep peroneal/ superficial peroneal nerve distributions R Motor intact EHL/ FHL/ ankle dorsiflexion/ ankle plantarflexion/ quadriceps firing Objective Labs Labs: Laboratory Results - last 24 hr 05/02/23 05/02/23 05/02/23 12:47 16:49 20:39 POC Glucose 376 427 H* 323 POC Glucose Comment Triglycerides Cholesterol LDL Cholesterol, Calc VLDL Cholesterol HDL Cholesterol Cholesterol/HDL Ratio 05/03/23 05/03/23 05/03/23 05:14 07:40 11:32 POC Glucose 310 388 POC Glucose Comment Triglycerides 64 Cholesterol 98 L LDL Cholesterol, Calc 46 VLDL Cholesterol 12 HDL Cholesterol 39 Cholesterol/HDL Ratio 2.5 Assessment / Plan Assessment and plan (1) Closed intertrochanteric fracture of right hip: Plan: 88 year old man POD 3 status post ORIF short IMN right intertrochanteric hip fracture - Edema reduction - Local wound care - Scar management - Pain control - Dressing change daily - Medical comorbidities and management per the medical team - Coronary artery disease per cardiology: Patient will likely need cardiac intervention with angioplasty and/ or stenting when determined by cardiology - Nutrition support - Partial to full weight bearing as pain tolerance allows right lower extremity in the interim - Incentive spirometry - DVT prophylaxis: SCDs in the interim. 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 In the interim, patient was counseled on bone healing protocol including smoking cessation/ avoidance of nicotine products, appropriate weight bearing restrictions and limitations, and vitamin supplementation to aid in bone and fracture healing/ strengthening. Patient was counseled to take: 1) Vitamin C 500 mg PO Q daily 2) Calcium 500-600 mg/ Vitamin D 200-400 Units PO Q TID - Post op acute blood loss anemia Hgb 9.8: Continue iron supplementation and will monitor at this time. Given coronary artery disease, would possibly transfuse if patient symptomatic and hemoglobin continues to drop - DC planning: Patient approved for rehab placement due to hip fracture and pending cardiology intervention. Currently cardiology planning for delayed outpatient cardiac intervention Code(s): S72.141A - Displaced intertrochanteric fracture of right femur, initial encounter for closed fracture Status: Acute (2) Diabetes: Code(s): E11.9 - Type 2 diabetes mellitus without complications Status: Acute (3) Two-vessel coronary artery disease: Code(s): I25.10 - Atherosclerotic heart disease of [place] coronary artery without angina pectoris Status: Acute (4) Nonsustained monomorphic ventricular tachycardia: Code(s): I47.29 - Other ventricular tachycardia Status: Acute (5) Mild left ventricular systolic dysfunction (LVSD): Code(s): I51.89 - Other ill-defined heart diseases Status: Acute (6) Abnormal EKG: Code(s): R94.31 - Abnormal electrocardiogram [ECG] [EKG] Status: Acute Billing Billing Codes (IF APPLICABLE) List of Applicable Codes for [place] Documented By: Ashwini Conrad MD 05/03/23 114 5 Signed By: <Electronically signed by Ashwini Conrad MD> 05/03/23 1202 [facility] Work Phone: 1(806) 593-916210-22-2023 Progress note Author Sushant Cordon [facility] May 02, 2023 2:35pm Note Date/Time May 02, 2023 2 :35pm [facility] [address] [place] [address] Hospitalist Progress Note Signed Patient: Ashwini Vickers#: [id number] : 1935 Acct:[id number] Age/Sex: 88 / M Adm Date: 3 Loc: 4N Room: 1C3338-1 Type: ADM IN Attending Dr: Sushant Cordon DO Copies to: ~ Date of Service: 05/02/2023 Subjective Subjective Narrative: I discussed the case earlier today on rounds with cardiology with Dr. Bal Del Valle. He indicates that cardiac catheterization can be done a few weeks downthe road, likely on outpatient basis. Therefore the patient is appropriate for aggressive rehabilitation as long as he has no symptomatology of coronary arterydisease The patient notes that he is having a lot more pain in the operative site of hisright hip today. He was able to work with physical therapy and Occupational Therapy. He does express a desire to go to the acute inpatient rehabilitation unit. He denies any shortness of breath or any chest pain or any pressure. He denies any fatigue or dyspnea with exertion. He denies any nausea or upset stomach. No heartburn. No lightheadedness or dizziness. No fevers or chills. He denies constipation. He is micturating urine without difficulty per his report. Exam Physical Exam Vital Signs: Temp Pulse Resp BP Pulse Ox O2 Del Method O2 Flow Rate 98.1 F 60 12 163/71 H 96 Room Air 6 05/02/23 08:12 05/02/23 12:48 05/02/23 12:48 05/02/23 12:48 05/02/23 12:48 05/02/23 12:48 05/02/23 00:00 Narrative: GEN: Awake, alert, oriented x 3. Lungs: Clear to auscultation bilaterally, no wheezing, no crackles. Heart: Regular rate and rhythm, no murmurs, rubs, or gallops. Abdomen: Soft, normal bowel sounds, no rigidity, guarding, or acute peritoneal signs. Extremities: No swelling or cords in the calves bilaterally, no edema in the ankles bilaterally. Right hip fracture repair site is dressed with gauze bandage. Dressing is clean and dry and intact. Moderate edema in the leg as expected. Objective Lab Results 05/02/23 05:46 05/02/23 05:46 Meds Allergies and Active Meds Allergies No Known Allergies Allergy (Verified 04/28/23 12:20) Active Meds: Active Medications Generic Name Dose Route Start Last Admin Trade Name Che PRN Reason Stop Dose Admin Acetaminophen 650 mg 04/28/23 17:19 Acetaminophen 325 Mg Tablet PO 04/27/24 17:18 Q4H PRN Pain Scale 1 - 3 or fever Acetaminophen 500 mg 04/30/23 21:30 05/02/23 09:13 Acetaminophen 500 Mg Tablet PO 05/03/23 21:29 500 mg Q6H TAVIA Administration Hydrocodone Bitart/Acetaminophen 1 tab 04/28/23 18:34 Hydrocodone/Acetaminophen 5-325 Mg Tablet PO Q4H PRN Pain Hydrocodone Bitart/Acetaminophen 2 tab 04/28/23 18:34 04/29/23 20:47 Hydrocodone/Acetaminophen 5-325 Mg Tablet PO 2 tab Q4H PRN Administration pain Al Hydrox/Mg Hydrox/Simethicone 30 ml 04/30/23 09:42 Mag Hydrox/Al Hydrox/Simeth 30 Ml Udc PO 04/29/24 09:41 Q4H PRN Epigastric distress (Non-Card) Lipase/Protease/Amylase 2 cap 04/29/23 08:00 05/02/23 12:16 Lipa/Prot/Amyla 24-76-120k 1 Cap Capsule. PO 04/28/24 07:59 2 cap TID.WITH.MEALS TAVIA Administration Ascorbic Acid 500 mg 04/29/23 09:00 05/02/23 09:13 Ascorbic Acid 500 Mg Tablet PO 04/28/24 08:59 500 mg DAILY TAVIA Administration Aspirin 81 mg 05/02/23 09:00 05/02/23 09:13 Aspirin 81 Mg Tablet. PO 05/01/24 08:59 81 mg DAILY TAVIA Administration Atorvastatin Calcium 80 mg 05/01/23 21:00 05/01/23 21:16 Atorvastatin 80 Mg Tablet PO 04/30/24 20:59 80 mg QPM TAVIA Administration Bisacodyl 10 mg 04/28/23 17:19 Bisacodyl 5 Mg Tablet. PO 04/27/24 17:18 DAILY PRN Constipation Bisacodyl 10 mg 04/28/23 17:19 Bisacodyl 10 Mg Supp.Rect [place] 04/27/24 17:18 DAILY PRN Constipation Calcium Carbonate 1 tab 04/29/23 08:00 05/02/23 12:16 Calcium Carbonate/Vitamin D3 500 Mg/200 Unit Tablet PO 04/28/24 07:59 1 tab TID.WITH.MEALS TAVIA Administration Dextrose 0 gm 04/28/23 17:14 04/30/23 10:04 Dextrose 50% In Water 25 Gm/50 Ml Syringe IV-PUSH 04/27/24 17:13 25 gm PRN PRN Administration Hypoglycemia Docusate Sodium 200 mg 04/28/23 21:00 05/02/23 09:13 Docusate 100 Mg Capsule PO 04/27/24 20:59 200 mg BID TAVIA Administration Enoxaparin Sodium 40 mg 05/01/23 10:00 05/02/23 09:13 Enoxaparin 40 Mg/0.4 Ml Syringe SUBCUT 04/30/24 09:59 40 mg DAILY@1000 TAVIA Administration Glucose 0 gm 04/28/23 17:14 04/30/23 08:42 Dextrose 40% Gel 15 Gm Tube PO 04/27/24 17:13 15 gm PRN PRN Administration Hypoglycemia Hydromorphone HCl 1 mg 04/28/23 17:19 05/02/23 00:04 Hydromorphone 1 Mg/Ml Syringe IV-PUSH 1 mg Q4H PRN Administration Pain Insulin Aspart 0 units 04/28/23 22:00 05/02/23 13:25 Insulin Aspart 300 Units/3 Ml Insuln.Pen SUBCUT 04/27/24 21:59 5 units TID.WM.HS TAVIA Administration Protocol Insulin Aspart 0 units 05/02/23 17:00 Insulin Aspart 300 Units/3 Ml Insuln.Pen SUBCUT 05/01/24 16:59 TID.WITH.MEALS [facility] Protocol Insulin Glargine 7 units 05/01/23 21:00 05/02/23 13:25 Insulin Glargine 300 Units/3 Ml Insuln.Pen SUBCUT 04/30/24 20:59 5 units BID TAVIA Administration Lidocaine HCl 0.1 ml 04/29/23 01:31 Lidocaine 1% 50 Ml Vial INTRADERMA PREOP PRN Venipuncture x 1 Dose Magnesium Hydroxide 30 ml 04/28/23 17:19 Magnesium Hydroxide Susp 30 Ml Udc PO 04/27/24 17:18 BID PRN Constipation Morphine Sulfate 2 mg 04/28/23 18:34 Morphine Sulfate 2 Mg/Ml Vial IV-PUSH Q2H PRN Pain scale 1-3 Morphine Sulfate 4 mg 04/28/23 18:34 Morphine Sulfate 4 Mg/Ml Cartridge IV-PUSH Q2H PRN Pain scale 4-6 Nitroglycerin 0.4 mg 04/28/23 17:19 Nitroglycerin 0.4 Mg Tab.Subl SUBLINGUAL 04/27/24 17:18 Q5M PRN Chest Pain Ondansetron HCl 4 mg 04/28/23 18:34 Ondansetron 4 Mg/2 Ml Vial IV-PUSH 04/27/24 18:33 Q6H PRN Nausea And Vomiting Ondansetron HCl 4 mg 04/30/23 09:42 Ondansetron 4 Mg/2 Ml Vial IV-PUSH 04/29/24 09:41 Q6H PRN Nausea And Vomiting Oxycodone HCl 5 mg 04/28/23 17:19 05/02/23 12:16 Oxycodone Ir 5 Mg Tablet PO 5 mg Q4HR PRN Administration Pain Paroxetine HCl 30 mg 04/29/23 09:00 05/02/23 09:13 Paroxetine 30 Mg Tablet PO 04/28/24 08:59 30 mg DAILY TAVIA Administration Potassium Chloride 40 meq 04/30/23 07:00 Potassium Chloride Er 20 Meq Tab.Er.Prt PO STAT PRN Hypokalemia Sennosides 2 tab 04/28/23 22:00 05/01/23 21:16 Sennosides 8.6 Mg Tablet PO 04/27/24 21:59 2 tab HS TAVIA Administration Sodium Chloride 0 ml 04/28/23 12:19 04/28/23 13:34 Sodium Chloride 0.9 % 10 Ml Syringe IV-PUSH 04/27/24 12:18 20 ml PRN PRN Administration Flush Sodium Chloride 0 ml 04/28/23 22:00 05/02/23 13:38 Sodium Chloride 0.9 % 10 Ml Syringe IV-PUSH 04/27/24 21:59 6 ml QSHIFT TAVIA Administration Sodium Chloride 0 ml 04/28/23 18:34 04/30/23 10:04 Sodium Chloride 0.9 % 10 Ml Syringe IV-PUSH 04/27/24 18:33 10 ml PRN PRN Administration Flush Sodium Chloride 0 ml 04/29/23 01:31 Sodium Chloride 0.9 % 10 Ml Syringe IV-PUSH 04/28/24 01:30 PRN PRN Flush Sodium Chloride 0 ml 04/29/23 15:59 Sodium Chloride 0.9 % 10 Ml Syringe IV-PUSH 04/28/24 15:58 PRN PRN Flush Sodium Chloride 0 ml 04/30/23 09:42 Sodium Chloride 0.9 % 10 Ml Syringe IV-PUSH 04/29/24 09:41 PRN PRN Flush Tamsulosin HCl 0.4 mg 04/29/23 09:00 05/02/23 09:14 Tamsulosin 0.4 Mg Cap.Er.24h PO 04/28/24 08:59 0.4 mg DAILY TAVIA Administration Triamcinolone Acetonide 1 applic 04/30/23 09:42 Triamcinolone 0.1% Cream 15 Gm Tube TOPICAL 04/29/24 09:41 QID PRN Irritation Valsartan 80 mg 05/02/23 13:00 05/02/23 12:16 Valsartan 80 Mg Tablet PO 05/01/24 12:59 80 mg DAILY TAVIA Administration A&P - Hospitalist Assessment/Plan (1) Closed intertrochanteric fracture of right hip: (2) Diabetes: (3) Two-vessel coronary artery disease: (4) Nonsustained monomorphic ventricular tachycardia: (5) Mild left ventricular systolic dysfunction (LVSD): (6) Abnormal EKG: Plan Assessment: Acute right intertrochanteric hip fracture. S/P repair on 04/30/2023 Episode of hypoglycemia leading to the mechanical fall at home. 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 Finding of new left ventricular systolic function with ejection fraction of 40 to 45%. Brief run of nonsustained ventricular tachycardia. Two-vessel coronary artery disease with 100% proximal left anterior descending occlusion and 80% at the D1. Left circumflex with 50% proximal stenosis and 70%ostial OM1 disease. Iron is mildly low at 45 and iron saturation is mildly low at 13.6. Plan: Continue recovery therapies and rehabilitative therapies after the right hip fracture repair today. Interventional cardiology recommends percutaneous coronary intervention after the patient's surgery and rehabilitation and recovery. Maximum medical therapy for coronary artery disease with with aspirin 81 mg daily, and Lipitor 80 mg daily. Patient is not a candidate for beta-blockers due to relatively low heart rate atbaseline. Patient gets relatively good glucose readings in the mornings but then gets hyperglycemia after meals. I have split up his long-acting insulin to 7 units of Lantus scheduled twice a day. He is on a sliding scale level 2, and I will put him on a 1 unit per 10 g carbohydrate counting regimen. His long-acting insulin may actually need to be decreased based on this AM glucose readings... unless his oral intake of food and liquids increases. From my point of view the patient is medically ready for the acute inpatient rehabilitation unit as of today. All the above was discussed with the patient and his in the room and they are in agreement and had no additional questions. Documented By: Sushant Cordon DO [id number] Signed By: <Electronically signed by Sushant Cordon DO> 05/02/23 1436 [facility] Work Phone: 1(542) 370-279110-22-2023 Progress note Author Ashwini oCnrad [facility] May 02, 2023 2:12pm Note Date/Time May 02, 2023 2 :12pm [facility] [address] [place] [address] Orthopedic Progress Note Signed Patient: Ashwini Vickers MR#: [id number] : 1935 Acct:[id number] Age/Sex: 88 / M Adm Date: 3 Loc: 4N Room: 8H4597-5 Type: ADM IN Attending Dr: Sushant Cordon DO Copies to: ~ Date of Service: 05/02/2023 Subjective Subjective Interval History: patient has been working with therapy ambulating in room this AM Overall doing well, some pain at hip but controlled with current pain regimen Tolerating diet Denies CP/ SOB/ N/ V Exam Physical Exam Vital Signs: Temp Pulse Resp BP Pulse Ox O2 Del Method O2 Flow Rate 98.1 F 60 12 163/71 H 96 Room Air 6 05/02/23 08:12 05/02/23 12:48 05/02/23 12:48 05/02/23 12:48 05/02/23 12:48 05/02/23 12:48 05/02/23 00:00 Narrative: GENERAL Awake, alert, oriented, and in no acute distress Patient sitting up in chair LOWER EXTREMITY Post injury/ operative incision is clean dry and intact without evidence of purulent drainage, cellulitis, or infection. Bandage clean, dry, intact right hip Positive mild swelling right lower extremity as expected in the postoperative period Positive mild ecchymosis right hip as expected in the postoperative period Positive tenderness to palpation right hip as expected in the postoperative period R LE clinically equal limb length and rotation compared to L LE Positive mild pain with axial load R hip Negative/ reoslved pain with log roll maneuver R hip R Dorsalis pedis pulse 2+ and intact R Sensory intact to light touch distally at the tibial/ sural/ saphenous/ deep peroneal/ superficial peroneal nerve distributions R Motor intact EHL/ FHL/ ankle dorsiflexion/ ankle plantarflexion/ quadriceps firing Objective Labs Labs: Laboratory Results - last 24 hr 05/01/23 05/01/23 05/02/23 16:59 20:44 04:18 Corrected WBC Uncorrected WBC Count RBC Hgb Hct MCV MCH MCHC RDW Plt Count MPV Neut % (Auto) Lymph % (Auto) [place] % (Auto) Eos % (Auto) Baso % (Auto) Nucleat RBC Rel Count Neut # (Auto) Lymph # (Auto) [place] # (Auto) Eos # (Auto) Baso # (Auto) PHA Creatinine Clear Sodium Potassium Chloride Carbon Dioxide Anion Gap BUN Creatinine Est GFR (CKD-EPI) Glucose POC Glucose 194 340 92 POC Glucose Comment Glu2: cleaned meter Calcium Triglycerides Cholesterol LDL Cholesterol, Calc VLDL Cholesterol HDL Cholesterol Cholesterol/HDL Ratio 05/02/23 05/02/23 05/02/23 05:46 05:46 08:19 Corrected WBC 8.6 Uncorrected WBC Count 8.6 RBC 3.29 L Hgb 9.3 L Hct 27.8 L MCV 84.2 MCH 28.3 MCHC 33.6 RDW 17.0 H Plt Count 168 MPV 9.3 Neut % (Auto) 71.9 Lymph % (Auto) 13.7 [place] % (Auto) 13.5 Eos % (Auto) 0.8 Baso % (Auto) 0.1 Nucleat RBC Rel Count 0.0 Neut # (Auto) 6.2 Lymph # (Auto) 1.2 [place] # (Auto) 1.2 H Eos # (Auto) 0.1 Baso # (Auto) 0.0 PHA Creatinine Clear 59.22 Sodium 131 L Potassium 4.2 Chloride 97 L Carbon Dioxide 30.1 Anion Gap 8.1 BUN 21 Creatinine 0.86 Est GFR (CKD-EPI) > 60.0 Glucose 87 POC Glucose 73 POC Glucose Comment Calcium 8.0 L Triglycerides 53 Cholesterol 97 L LDL Cholesterol, Calc 43 VLDL Cholesterol 10 HDL Cholesterol 43 Cholesterol/HDL Ratio 2.3 05/02/23 12:47 Corrected WBC Uncorrected WBC Count RBC Hgb Hct MCV MCH MCHC RDW Plt Count MPV Neut % (Auto) Lymph % (Auto) [place] % (Auto) Eos % (Auto) Baso % (Auto) Nucleat RBC Rel Count Neut # (Auto) Lymph # (Auto) [place] # (Auto) Eos # (Auto) Baso # (Auto) PHA Creatinine Clear Sodium Potassium Chloride Carbon Dioxide Anion Gap BUN Creatinine Est GFR (CKD-EPI) Glucose POC Glucose 376 POC Glucose Comment Calcium Triglycerides Cholesterol LDL Cholesterol, Calc VLDL Cholesterol HDL Cholesterol Cholesterol/HDL Ratio Assessment / Plan Assessment and plan (1) Two-vessel coronary artery disease: Code(s): I25.10 - Atherosclerotic heart disease of [place] coronary artery without angina pectoris Status: Acute (2) Mild left ventricular systolic dysfunction (LVSD): Code(s): I51.89 - Other ill-defined heart diseases Status: Acute (3) Diabetes: Code(s): E11.9 - Type 2 diabetes mellitus without complications Status: Acute (4) Elevated troponin: Code(s): R79.89 - Other specified abnormal findings of blood chemistry Status: Acute (5) Closed intertrochanteric fracture of right hip: Code(s): S72.141A - Displaced intertrochanteric fracture of right femur, initial encounter for closed fracture Status: Acute Plan 88 year old man POD 2 status post ORIF short IMN right intertrochanteric hip fracture - Edema reduction - Local wound care - Scar management - Pain control - Dressing change POD 2 - Medical comorbidities and management per the medical team - Coronary artery disease per cardiology: Patient will likely need cardiac intervention with angioplasty and/ or stenting when determined by cardiology - Nutrition support - Partial to full weight bearing as pain tolerance allows right lower extremity in the interim - Incentive spirometry - DVT prophylaxis: SCDs in the interim. 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 In the interim, patient was counseled on bone healing protocol including smoking cessation/ avoidance of nicotine products, appropriate weight bearing restrictions and limitations, and vitamin supplementation to aid in bone and fracture healing/ strengthening. Patient was counseled to take: 1) Vitamin C 500 mg PO Q daily 2) Calcium 500-600 mg/ Vitamin D 200-400 Units PO Q TID - Post op acute blood loss anemia Hgb 9.8: Continue iron supplementation and will monitor at this time. Given coronary artery disease, would possibly transfuse if patient symptomatic and hemoglobin continues to drop - DC planning: would anticipate rehab placement due to hip fracture and pendingcardiology intervention. Currently cardiology planning for delayed outpatient cardiac intervention Billing Billing Codes (IF APPLICABLE) List of Applicable Codes for [place] Documented By: Ashwini Conrad MD 05/02/23 141 0 Signed By: <Electronically signed by Ashwini Conrad MD> 05/02/23 1412 [facility] Work Phone: [phone]) 807-504510-22-2023 Progress note Author Harsh Del Valle [facility] May 02, 2023 10:49am Note Date/Time May 02, 2023 1 0:49am [facility] [address] [place] [address] Cardiology Progress Note Signed Patient: Ashwini Vickers MR#: [id number] : 1935 Acct:[id number] Age/Sex: 88 / M Adm Date: 3 Loc: 4N Room: [address] [place] [address] Type: ADM IN Attending Dr: Sushant Cordon DO Copies to: ~ Date of Service: 05/02/2023 Subjective Principal diagnosis: Elevated troponin, fractured hip Interval history: Patient had uncomplicated surgery and feels well. Patient is noted to be hypertensive in stage II, heart rate 59 bpm. Currently has no complaints. Aspirin was added and will add valsartan 80 mg daily for hypertension and LV systolic dysfunction. Intervention regarding CAD is to be determined by her primary stock replenisher and Dr. Davis Exam Physical Exam Vital Signs: Temp Pulse Resp BP Pulse Ox O2 Del Method O2 Flow Rate 98.1 F 60 16 152/82 H 98 Room Air 6 05/02/23 08:12 05/02/23 08:12 05/02/23 08:12 05/02/23 08:12 05/02/23 08:12 05/02/23 08:12 05/02/23 00:00 Const General: cooperative, comfortable and no acute distress Nutritional Appearance: average body habitus Orientation: alert, awake and oriented x3 HEENT Head: normal to inspection, normocephalic and atraumatic Ears: hearing grossly normal bilaterally Nose: external nose normal Face and sinus: normal facial exam Eyes Conjunctivae: conjunctivae normal Neck Neck: normal visual inspection, full ROM, trachea midline and supple Neck mass: No Thyroid: thyroid normal Carotids: normal carotid upstroke Resp Effort & Inspection: normal respiratory effort Auscultation: clear to auscultation bilaterally Cardio Jugular venous pressure: no JVD Palpation: normal PMI Rate: bradycardic Rhythm: regular rhythm Heart Sounds: S1 normal and S2 normal GI Inspection: normal to inspection Palpation: soft and no hepatosplenomegaly Auscultation: normal bowel sounds Extrem General: no clubbing, cyanosis or edema Objective Labs 05/02/23 05:46 05/02/23 05:46 Labs: Laboratory Results - last 24 hr 05/01/23 05/01/23 05/01/23 11:08 16:59 20:44 Corrected WBC Uncorrected WBC Count RBC Hgb Hct MCV MCH MCHC RDW Plt Count MPV Neut % (Auto) Lymph % (Auto) [place] % (Auto) Eos % (Auto) Baso % (Auto) Nucleat RBC Rel Count Neut # (Auto) Lymph # (Auto) [place] # (Auto) Eos # (Auto) Baso # (Auto) PHA Creatinine Clear Sodium Potassium Chloride Carbon Dioxide Anion Gap BUN Creatinine Est GFR (CKD-EPI) Glucose POC Glucose [phone] POC Glucose Comment Glu2: cleaned meter Glu2: cleaned meter Calcium Triglycerides Cholesterol LDL Cholesterol, Calc VLDL Cholesterol HDL Cholesterol Cholesterol/HDL Ratio 05/02/23 05/02/23 05/02/23 04:18 05:46 05:46 Corrected WBC 8.6 Uncorrected WBC Count 8.6 RBC 3.29 L Hgb 9.3 L Hct 27.8 L MCV 84.2 MCH 28.3 MCHC 33.6 RDW 17.0 H Plt Count 168 MPV 9.3 Neut % (Auto) 71.9 Lymph % (Auto) 13.7 [place] % (Auto) 13.5 Eos % (Auto) 0.8 Baso % (Auto) 0.1 Nucleat RBC Rel Count 0.0 Neut # (Auto) 6.2 Lymph # (Auto) 1.2 [place] # (Auto) 1.2 H Eos # (Auto) 0.1 Baso # (Auto) 0.0 PHA Creatinine Clear 59.22 Sodium 131 L Potassium 4.2 Chloride 97 L Carbon Dioxide 30.1 Anion Gap 8.1 BUN 21 Creatinine 0.86 Est GFR (CKD-EPI) > 60.0 Glucose 87 POC Glucose 92 POC Glucose Comment Calcium 8.0 L Triglycerides 53 Cholesterol 97 L LDL Cholesterol, Calc 43 VLDL Cholesterol 10 HDL Cholesterol 43 Cholesterol/HDL Ratio 2.3 05/02/23 08:19 Corrected WBC Uncorrected WBC Count RBC Hgb Hct MCV MCH MCHC RDW Plt Count MPV Neut % (Auto) Lymph % (Auto) [place] % (Auto) Eos % (Auto) Baso % (Auto) Nucleat RBC Rel Count Neut # (Auto) Lymph # (Auto) [place] # (Auto) Eos # (Auto) Baso # (Auto) PHA Creatinine Clear Sodium Potassium Chloride Carbon Dioxide Anion Gap BUN Creatinine Est GFR (CKD-EPI) Glucose POC Glucose 73 POC Glucose Comment Calcium Triglycerides Cholesterol LDL Cholesterol, Calc VLDL Cholesterol HDL Cholesterol Cholesterol/HDL Ratio A&P - Cardiology (1) Two-vessel coronary artery disease: Assessment/Problem Details: Asymptomatic, he has occluded anterior descending artery and high-grade stenosisin diagonal and marginal Code(s): I25.10 - Atherosclerotic heart disease of [place] coronary artery without angina pectoris Status: Acute Plan: Aspirin and statin. At one point in time in the near future coronary intervention will be scheduled. Due to bradycardia we will not initiate beta-sarah therapy. (2) Mild left ventricular systolic dysfunction (LVSD): Assessment/Problem Details: Asymptomatic ischemic in nature Code(s): I51.89 - Other ill-defined heart diseases Status: Acute Plan: Patient will benefit from RAAS inhibition, will add valsartan 80 mg daily (3) Diabetes: Code(s): E11.9 - Type 2 diabetes mellitus without complications Status: Acute Plan: Continue current therapy (4) Elevated troponin: Assessment/Problem Details: With underlying significant CAD Code(s): R79.89 - Other specified abnormal findings of blood chemistry Status: Acute Plan: Aspirin and statin for now, later coronary intervention Documented By: Harsh Del Valle MD, [facility] 3 [id number] Signed By: <Electronically signed by MD [place] Harsh Del Valle> 05/02/23 1049 [facility] Work Phone: 1(707) 282-217210-21-2023 Progress note Author Sushant Cordon [facility] May 01, 2023 3:13pm Note Date/Time May 01, 2023 3 :09pm [facility] [address] [place] [address] Hospitalist Progress Note Signed Patient: Ashwini Vickers MR#: [id number] : 1935 Acct:[id number] Age/Sex: 88 / M Adm Date: 3 Loc: N Room: [id number] Type: ADM IN Attending Dr: Sushant Cordon DO Copies to: ~ Date of Service: 05/01/2023 Subjective Subjective Narrative: I discussed the case earlier today on rounds with orthopedic surgery with Ashwini Conrad. I asked her if 81 mg of aspirin and another antiplatelet medication such as Plavix or Brilinta would be okay to be used when cardiology needs to and the understanding is it is okay to proceed with these types of medications. Seen this afternoon the patient is in the room accompanied by his . The patient has a fair amount of pain in his thigh but this is in the middle toes distal part of the upper quadriceps region and so I think he is having muscle pain from edema. There is minimal pain over the surgical incision sites. No swelling or problems below the knees. His appetite is good. He has not yet moved his bowels. He is taking the bowel regimen stool softeners. He denies any chest pain or any pressure. He denies any shortness of breath. Denies any headache or any lightheadedness. His Kimble catheter was removed earlier today. He chelo on low-dose IV fluid with dextrose 50 mL an hour which can be stopped now. Exam Physical Exam Vital Signs: Temp Pulse Resp BP Pulse Ox O2 Del Method O2 Flow Rate 98.1 F 59 L 18 122/60 98 Room Air 6 05/01/23 11:11 05/01/23 11:11 05/01/23 11:11 05/01/23 11:11 05/01/23 11:11 05/01/23 08:15 04/30/23 16:51 Narrative: GEN: Awake, alert, oriented x 3. Lungs: Clear to auscultation bilaterally, no wheezing, no crackles. Heart: Regular rate and rhythm, no murmurs, rubs, or gallops. Abdomen: Soft, normal bowel sounds, no rigidity, guarding, or acute peritoneal signs. Extremities: No swelling or cords in the calves bilaterally, no edema in the ankles bilaterally. Right hip fracture repair site is dressed with gauze bandage. Dressing is clean and dry and intact. Moderate edema in the leg as expected. Objective Lab Results 05/01/23 06:52 05/01/23 06:52 Meds Allergies and Active Meds Allergies No Known Allergies Allergy (Verified 04/28/23 12:20) Active Meds: Active Medications Generic Name Dose Route Start Last Admin Trade Name Freq PRN Reason Stop Dose Admin Acetaminophen 650 mg 04/28/23 17:19 Acetaminophen 325 Mg Tablet PO 04/27/24 17:18 Q4H PRN Pain Scale 1 - 3 or fever Acetaminophen 500 mg 04/30/23 21:30 05/01/23 14:46 Acetaminophen 500 Mg Tablet PO 05/03/23 21:29 Not Given Q6H TAVIA Hydrocodone Bitart/Acetaminophen 1 tab 04/28/23 18:34 Hydrocodone/Acetaminophen 5-325 Mg Tablet PO Q4H PRN Pain Hydrocodone Bitart/Acetaminophen 2 tab 04/28/23 18:34 04/29/23 20:47 Hydrocodone/Acetaminophen 5-325 Mg Tablet PO 2 tab Q4H PRN Administration pain Al Hydrox/Mg Hydrox/Simethicone 30 ml 04/30/23 09:42 Mag Hydrox/Al Hydrox/Simeth 30 Ml Udc PO 04/29/24 09:41 Q4H PRN Epigastric distress (Non-Card) Lipase/Protease/Amylase 2 cap 04/29/23 08:00 05/01/23 12:00 Lipa/Prot/Amyla 24-76-120k 1 Cap Capsule. PO 04/28/24 07:59 2 cap TID.WITH.MEALS TAVIA Administration Ascorbic Acid 500 mg 04/29/23 09:00 05/01/23 08:29 Ascorbic Acid 500 Mg Tablet PO 04/28/24 08:59 500 mg DAILY TAVIA Administration Aspirin 81 mg 05/02/23 09:00 Aspirin 81 Mg Tablet. PO 05/01/24 08:59 DAILY TAVIA Atorvastatin Calcium 80 mg 05/01/23 21:00 Atorvastatin 80 Mg Tablet PO 04/30/24 20:59 QPM TAVIA Bisacodyl 10 mg 04/28/23 17:19 Bisacodyl 5 Mg Tablet. PO 04/27/24 17:18 DAILY PRN Constipation Bisacodyl 10 mg 04/28/23 17:19 Bisacodyl 10 Mg Supp.Rect [place] 04/27/24 17:18 DAILY PRN Constipation Calcium Carbonate 1 tab 04/29/23 08:00 05/01/23 12:00 Calcium Carbonate/Vitamin D3 500 Mg/200 Unit Tablet PO 04/28/24 07:59 1 tab TID.WITH.MEALS TAVIA Administration Dextrose 0 gm 04/28/23 17:14 04/30/23 10:04 Dextrose 50% In Water 25 Gm/50 Ml Syringe IV-PUSH 04/27/24 17:13 25 gm PRN PRN Administration Hypoglycemia Docusate Sodium 200 mg 04/28/23 21:00 05/01/23 08:29 Docusate 100 Mg Capsule PO 04/27/24 20:59 200 mg BID TAVIA Administration Enoxaparin Sodium 40 mg 05/01/23 10:00 05/01/23 09:31 Enoxaparin 40 Mg/0.4 Ml Syringe SUBCUT 04/30/24 09:59 40 mg DAILY@1000 TAVIA Administration Glucose 0 gm 04/28/23 17:14 04/30/23 08:42 Dextrose 40% Gel 15 Gm Tube PO 04/27/24 17:13 15 gm PRN PRN Administration Hypoglycemia Hydromorphone HCl 1 mg 04/28/23 17:19 05/01/23 14:16 Hydromorphone 1 Mg/Ml Syringe IV-PUSH 1 mg Q4H PRN Administration Pain Insulin Aspart 0 units 04/28/23 22:00 05/01/23 12:00 Insulin Aspart 300 Units/3 Ml Insuln.Pen SUBCUT 04/27/24 21:59 Not Given TID.WM.[facility] Protocol Insulin Glargine 7 units 05/01/23 21:00 Insulin Glargine 300 Units/3 Ml Insuln.Pen SUBCUT 04/30/24 20:59 BID [facility] Lidocaine HCl 0.1 ml 04/29/23 01:31 Lidocaine 1% 50 Ml Vial INTRADERMA PREOP PRN Venipuncture x 1 Dose Magnesium Hydroxide 30 ml 04/28/23 17:19 Magnesium Hydroxide Susp 30 Ml Udc PO 04/27/24 17:18 BID PRN Constipation Morphine Sulfate 2 mg 04/28/23 18:34 Morphine Sulfate 2 Mg/Ml Vial IV-PUSH Q2H PRN Pain scale 1-3 Morphine Sulfate 4 mg 04/28/23 18:34 Morphine Sulfate 4 Mg/Ml Cartridge IV-PUSH Q2H PRN Pain scale 4-6 Nitroglycerin 0.4 mg 04/28/23 17:19 Nitroglycerin 0.4 Mg Tab.Subl SUBLINGUAL 04/27/24 17:18 Q5M PRN Chest Pain Ondansetron HCl 4 mg 04/28/23 18:34 Ondansetron 4 Mg/2 Ml Vial IV-PUSH 04/27/24 18:33 Q6H PRN Nausea And Vomiting Ondansetron HCl 4 mg 04/30/23 09:42 Ondansetron 4 Mg/2 Ml Vial IV-PUSH 04/29/24 09:41 Q6H PRN Nausea And Vomiting Oxycodone HCl 5 mg 04/28/23 17:19 05/01/23 10:20 Oxycodone Ir 5 Mg Tablet PO 5 mg Q4HR PRN Administration Pain Paroxetine HCl 30 mg 04/29/23 09:00 05/01/23 08:29 Paroxetine 30 Mg Tablet PO 04/28/24 08:59 30 mg DAILY TAVIA Administration Potassium Chloride 40 meq 04/30/23 07:00 Potassium Chloride Er 20 Meq Tab.Er.Prt PO STAT PRN Hypokalemia Sennosides 2 tab 04/28/23 22:00 04/30/23 21:06 Sennosides 8.6 Mg Tablet PO 04/27/24 21:59 2 tab HS TAVIA Administration Sodium Chloride 0 ml 04/28/23 12:19 04/28/23 13:34 Sodium Chloride 0.9 % 10 Ml Syringe IV-PUSH 04/27/24 12:18 20 ml PRN PRN Administration Flush Sodium Chloride 0 ml 04/28/23 22:00 05/01/23 14:16 Sodium Chloride 0.9 % 10 Ml Syringe IV-PUSH 04/27/24 21:59 10 ml QSHIFT TAVIA Administration Sodium Chloride 0 ml 04/28/23 18:34 04/30/23 10:04 Sodium Chloride 0.9 % 10 Ml Syringe IV-PUSH 04/27/24 18:33 10 ml PRN PRN Administration Flush Sodium Chloride 0 ml 04/29/23 01:31 Sodium Chloride 0.9 % 10 Ml Syringe IV-PUSH 04/28/24 01:30 PRN PRN Flush Sodium Chloride 0 ml 04/29/23 15:59 Sodium Chloride 0.9 % 10 Ml Syringe IV-PUSH 04/28/24 15:58 PRN PRN Flush Sodium Chloride 0 ml 04/30/23 09:42 Sodium Chloride 0.9 % 10 Ml Syringe IV-PUSH 04/29/24 09:41 PRN PRN Flush Tamsulosin HCl 0.4 mg 04/29/23 09:00 05/01/23 08:29 Tamsulosin 0.4 Mg Cap.Er.24h PO 04/28/24 08:59 0.4 mg DAILY TAVIA Administration Triamcinolone Acetonide 1 applic 04/30/23 09:42 Triamcinolone 0.1% Cream 15 Gm Tube TOPICAL 04/29/24 09:41 QID PRN Irritation A&P - Hospitalist Assessment/Plan (1) Closed intertrochanteric fracture of right hip: (2) Diabetes: (3) Two-vessel coronary artery disease: (4) Nonsustained monomorphic ventricular tachycardia: (5) Mild left ventricular systolic dysfunction (LVSD): (6) Abnormal EKG: Plan Assessment: Acute right intertrochanteric hip fracture. S/P repair on 04/30/2023 Episode of hypoglycemia leading to the mechanical fall at home. 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 Finding of new left ventricular systolic function with ejection fraction of 40 to 45%. Brief run of nonsustained ventricular tachycardia. Two-vessel coronary artery disease with 100% proximal left anterior descending occlusion and 80% at the D1. Left circumflex with 50% proximal stenosis and 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 Iron is mildly low at 45 and iron saturation is mildly low at 13.6. Plan: Continue recovery therapies and rehabilitative therapies after the right hip fracture repair today. Interventional cardiology recommends percutaneous coronary intervention after the patient's surgery and rehabilitation and recovery. Maximum medical therapy with aspirin, Plavix, and Lipitor 80 mg daily may also be appropriate. Patient is not a candidate for beta-blockers due to relatively low heart rate at baseline. Documented By: Sushant Cordon DO [id number] Signed By: <Electronically signed by Sushant Cordon DO> 05/01/23 1513 [facility] Work Phone: 1(560) 562-395810-21-2023 Progress note Author Harsh Del Valle [facility] May 01, 2023 12:24pm Note Date/Time May 01, 2023 1 2:21pm [facility] [address] [place] [address] Cardiology Progress Note Signed Patient: Ashwini Vickers MR#: [id number] : 1935 Acct:[id number] Age/Sex: 88 / M Adm Date: 3 Loc: 4N Room: [id number] Type: ADM IN Attending Dr: Sushant Cordon DO Copies to: ~ Date of Service: 05/01/2023 Subjective Principal diagnosis: Elevated troponin, fractured hip Interval history: Patient had uncomplicated surgery and feels well. Vital signs are stable, heartrate 59 bpm. Blood pressure is normal. Currently has no complaints. Exam Physical Exam Vital Signs: Temp Pulse Resp BP Pulse Ox O2 Del Method O2 Flow Rate 98.1 F 59 L 18 122/60 98 Room Air 6 05/01/23 11:11 05/01/23 11:11 05/01/23 11:11 05/01/23 11:11 05/01/23 11:11 05/01/23 08:15 04/30/23 16:51 Const General: cooperative, comfortable and no acute distress Nutritional Appearance: average body habitus Orientation: alert, awake and oriented x3 HEENT Head: normal to inspection, normocephalic and atraumatic Ears: hearing grossly normal bilaterally Nose: external nose normal Face and sinus: normal facial exam Eyes Conjunctivae: conjunctivae normal Neck Neck: normal visual inspection, full ROM, trachea midline and supple Neck mass: No Thyroid: thyroid normal Carotids: normal carotid upstroke Resp Effort & Inspection: normal respiratory effort Auscultation: clear to auscultation bilaterally Cardio Jugular venous pressure: no JVD Palpation: normal PMI Rate: bradycardic Rhythm: regular rhythm Heart Sounds: S1 normal and S2 normal GI Inspection: normal to inspection Palpation: soft and no hepatosplenomegaly Auscultation: normal bowel sounds Extrem General: no clubbing, cyanosis or edema Objective Labs 05/01/23 06:52 05/01/23 06:52 Labs: Laboratory Results - last 24 hr 04/30/23 04/30/23 04/30/23 10:50 10:50 10:50 Corrected WBC Uncorrected WBC Count RBC Hgb Hct MCV MCH MCHC RDW Plt Count MPV Neut % (Auto) Lymph % (Auto) [place] % (Auto) Eos % (Auto) Baso % (Auto) Nucleat RBC Rel Count Neut # (Auto) Lymph # (Auto) [place] # (Auto) Eos # (Auto) Baso # (Auto) PT 15.6 H INR 1.3 APTT 30.6 PHA Creatinine Clear 57.66 Sodium 133 L Potassium 4.1 Chloride 96 L Carbon Dioxide 33.2 H Anion Gap 7.9 BUN 12 Creatinine 0.68 L Est GFR (CKD-EPI) > 60.0 Glucose 163 H POC Glucose POC Glucose Comment Calcium 8.4 L Troponin I High Sens 24.6 H B-Natriuretic Peptide Triglycerides Cholesterol LDL Cholesterol, Calc VLDL Cholesterol HDL Cholesterol Cholesterol/HDL Ratio Blood Type Antibody Screen 04/30/23 04/30/23 04/30/23 10:50 11:53 11:53 Corrected WBC Uncorrected WBC Count RBC Hgb Hct MCV MCH MCHC RDW Plt Count MPV Neut % (Auto) Lymph % (Auto) [place] % (Auto) Eos % (Auto) Baso % (Auto) Nucleat RBC Rel Count Neut # (Auto) Lymph # (Auto) [place] # (Auto) Eos # (Auto) Baso # (Auto) PT INR APTT PHA Creatinine Clear Sodium Potassium Chloride Carbon Dioxide Anion Gap BUN Creatinine Est GFR (CKD-EPI) Glucose POC Glucose POC Glucose Comment Calcium Troponin I High Sens 26.1 H B-Natriuretic Peptide 630.0 H 523.0 H Triglycerides Cholesterol LDL Cholesterol, Calc VLDL Cholesterol HDL Cholesterol Cholesterol/HDL Ratio Blood Type Antibody Screen 04/30/23 04/30/23 04/30/23 12:31 13:25 13:25 Corrected WBC Uncorrected WBC Count RBC Hgb Hct MCV MCH MCHC RDW Plt Count MPV Neut % (Auto) Lymph % (Auto) [place] % (Auto) Eos % (Auto) Baso % (Auto) Nucleat RBC Rel Count Neut # (Auto) Lymph # (Auto) [place] # (Auto) Eos # (Auto) Baso # (Auto) PT INR APTT PHA Creatinine Clear Sodium Potassium Chloride Carbon Dioxide Anion Gap BUN Creatinine Est GFR (CKD-EPI) Glucose POC Glucose 118 130 POC Glucose Comment Glu2: cleaned meter Calcium Troponin I High Sens B-Natriuretic Peptide Triglycerides Cholesterol LDL Cholesterol, Calc VLDL Cholesterol HDL Cholesterol Cholesterol/HDL Ratio Blood Type A Positive Antibody Screen Negative 04/30/23 04/30/23 04/30/23 16:42 17:51 18:04 Corrected WBC Uncorrected WBC Count RBC Hgb Hct MCV MCH MCHC RDW Plt Count MPV Neut % (Auto) Lymph % (Auto) [place] % (Auto) Eos % (Auto) Baso % (Auto) Nucleat RBC Rel Count Neut # (Auto) Lymph # (Auto) [place] # (Auto) Eos # (Auto) Baso # (Auto) PT INR APTT PHA Creatinine Clear Sodium Potassium Chloride Carbon Dioxide Anion Gap BUN Creatinine Est GFR (CKD-EPI) Glucose POC Glucose 149 162 POC Glucose Comment Calcium Troponin I High Sens 53.7 H* B-Natriuretic Peptide Triglycerides Cholesterol LDL Cholesterol, Calc VLDL Cholesterol HDL Cholesterol Cholesterol/HDL Ratio Blood Type Antibody Screen 04/30/23 05/01/23 05/01/23 20:56 03:07 06:52 Corrected WBC 8.8 Uncorrected WBC Count 8.8 RBC 3.54 L Hgb 9.8 L Hct 29.9 L MCV 84.5 MCH 27.8 MCHC 32.9 RDW 17.7 H Plt Count 156 MPV 9.5 Neut % (Auto) 68.2 Lymph % (Auto) 16.8 [place] % (Auto) 14.1 Eos % (Auto) 0.6 Baso % (Auto) 0.3 Nucleat RBC Rel Count 0.1 Neut # (Auto) 6.0 Lymph # (Auto) 1.5 [place] # (Auto) 1.2 H Eos # (Auto) 0.0 Baso # (Auto) 0.0 PT INR APTT PHA Creatinine Clear Sodium Potassium Chloride Carbon Dioxide Anion Gap BUN Creatinine Est GFR (CKD-EPI) Glucose POC Glucose 375 295 POC Glucose Comment Glu2: cleaned meter Calcium Troponin I High Sens B-Natriuretic Peptide Triglycerides Cholesterol LDL Cholesterol, Calc VLDL Cholesterol HDL Cholesterol Cholesterol/HDL Ratio Blood Type Antibody Screen 05/01/23 05/01/23 05/01/23 06:52 08:08 11:08 Corrected WBC Uncorrected WBC Count RBC Hgb Hct MCV MCH MCHC RDW Plt Count MPV Neut % (Auto) Lymph % (Auto) [place] % (Auto) Eos % (Auto) Baso % (Auto) Nucleat RBC Rel Count Neut # (Auto) Lymph # (Auto) [place] # (Auto) Eos # (Auto) Baso # (Auto) PT INR APTT PHA Creatinine Clear 63.00 Sodium 134 L Potassium 4.5 Chloride 97 L Carbon Dioxide 32.9 H Anion Gap 8.6 BUN 17 Creatinine 0.77 Est GFR (CKD-EPI) > 60.0 Glucose 86 POC Glucose 85 131 POC Glucose Comment Glu2: cleaned meter Glu2: cleaned meter Calcium 8.0 L Troponin I High Sens B-Natriuretic Peptide Triglycerides 30 Cholesterol 107 L LDL Cholesterol, Calc 50 VLDL Cholesterol 6 HDL Cholesterol 51 Cholesterol/HDL Ratio 2.1 Blood Type Antibody Screen A&P - Cardiology (1) Two-vessel coronary artery disease: Assessment/Problem Details: Asymptomatic, he has occluded anterior descending artery and high-grade stenosisin diagonal and marginal Code(s): I25.10 - Atherosclerotic heart disease of [place] coronary artery without angina pectoris Status: Acute Plan: Add aspirin and continue statin. At one point in time in the near future coronary intervention will be scheduled. Due to bradycardia we will not initiate beta- sarah therapy. (2) Mild left ventricular systolic dysfunction (LVSD): Assessment/Problem Details: Asymptomatic ischemic in nature Code(s): I51.89 - Other ill-defined heart diseases Status: Acute Plan: Patient will benefit from RAAS inhibition (3) Diabetes: Code(s): E11.9 - Type 2 diabetes mellitus without complications Status: Acute Plan: Continue current therapy (4) Elevated troponin: Assessment/Problem Details: With underlying significant CAD Code(s): R79.89 - Other specified abnormal findings of blood chemistry Status: Acute Plan: Aspirin and statin for now, later coronary intervention Documented By: Harsh Del Valle MD, [facility] 3 1220 Signed By: <Electronically signed by [facility] Harsh Del Valle> 05/01/23 1224 [facility] Work Phone: 1(817) 860-475610-21-2023 Progress note Author Ashwini Conrad [facility] May 01, 2023 11:31am Note Date/Time May 01, 2023 1 1:31am [facility] [address] [place] [address] Orthopedic Progress Note Signed Patient: Ashwini Vickers MR#: [id number] : 1935 Acct:[id number] Age/Sex: 88 / M Adm Date: 3 Loc: N Room: 6R0480-8 Type: ADM IN Attending Dr: Sushant Cordon DO Copies to: ~ Date of Service: 05/01/2023 Subjective Subjective Interval History: Patient reports he is overall doing well Does still have pain at the right hip but is controlled with current pain regimen Tolerating diet, denies N/V Does have some dizziness when getting up but denies CP/ SOB Was up in chair working with PT this AM Exam Physical Exam Vital Signs: Temp Pulse Resp BP Pulse Ox O2 Del Method O2 Flow Rate 98.0 F 53 L 16 117/65 98 Room Air 6 05/01/23 08:07 05/01/23 08:07 05/01/23 08:07 05/01/23 08:07 05/01/23 08:07 05/01/23 08:07 04/30/23 16:51 Narrative: GENERAL Awake, alert, oriented, and in no acute distress Patient sitting up in chair LOWER EXTREMITY Post injury/ operative incision is clean dry and intact without evidence of purulent drainage, cellulitis, or infection. Bandage clean, dry, intact right hip Positive mild swelling right lower extremity as expected in the postoperative period Positive mild ecchymosis right hip as expected in the postoperative period Positive tenderness to palpation right hip as expected in the postoperative period R LE clinically equal limb length and rotation compared to L LE Positive mild pain with axial load R hip Negative/ reoslved pain with log roll maneuver R hip R Dorsalis pedis pulse 2+ and intact R Sensory intact to light touch distally at the tibial/ sural/ saphenous/ deep peroneal/ superficial peroneal nerve distributions R Motor intact EHL/ FHL/ ankle dorsiflexion/ ankle plantarflexion/ quadriceps firing Objective Labs Labs: Laboratory Results - last 24 hr 04/30/23 04/30/23 04/30/23 10:50 10:50 10:50 Corrected WBC 9.3 Uncorrected WBC Count 9.3 RBC 4.23 Hgb 11.8 L Hct 35.8 L MCV 84.7 MCH 27.9 MCHC 32.9 RDW 17.8 H Plt Count 194 MPV 9.9 Neut % (Auto) 79.2 Lymph % (Auto) 5.9 [place] % (Auto) 14.6 Eos % (Auto) 0.0 Baso % (Auto) 0.3 Nucleat RBC Rel Count 0.1 Neut # (Auto) 7.4 Lymph # (Auto) 0.6 L [place] # (Auto) 1.4 H Eos # (Auto) 0.0 Baso # (Auto) 0.0 PT 15.6 H INR 1.3 APTT 30.6 PHA Creatinine Clear 57.66 Sodium 133 L Potassium 4.1 Chloride 96 L Carbon Dioxide 33.2 H Anion Gap 7.9 BUN 12 Creatinine 0.68 L Est GFR (CKD-EPI) > 60.0 Glucose 163 H POC Glucose POC Glucose Comment Calcium 8.4 L Troponin I High Sens B-Natriuretic Peptide Triglycerides Cholesterol LDL Cholesterol, Calc VLDL Cholesterol HDL Cholesterol Cholesterol/HDL Ratio Blood Type Antibody Screen 04/30/23 04/30/23 04/30/23 10:50 10:50 11:53 Corrected WBC Uncorrected WBC Count RBC Hgb Hct MCV MCH MCHC RDW Plt Count MPV Neut % (Auto) Lymph % (Auto) [place] % (Auto) Eos % (Auto) Baso % (Auto) Nucleat RBC Rel Count Neut # (Auto) Lymph # (Auto) [place] # (Auto) Eos # (Auto) Baso # (Auto) PT INR APTT PHA Creatinine Clear Sodium Potassium Chloride Carbon Dioxide Anion Gap BUN Creatinine Est GFR (CKD-EPI) Glucose POC Glucose POC Glucose Comment Calcium Troponin I High Sens 24.6 H 26.1 H B-Natriuretic Peptide 630.0 H Triglycerides Cholesterol LDL Cholesterol, Calc VLDL Cholesterol HDL Cholesterol Cholesterol/HDL Ratio Blood Type Antibody Screen 04/30/23 04/30/23 04/30/23 11:53 12:31 13:25 Corrected WBC Uncorrected WBC Count RBC Hgb Hct MCV MCH MCHC RDW Plt Count MPV Neut % (Auto) Lymph % (Auto) [place] % (Auto) Eos % (Auto) Baso % (Auto) Nucleat RBC Rel Count Neut # (Auto) Lymph # (Auto) [place] # (Auto) Eos # (Auto) Baso # (Auto) PT INR APTT PHA Creatinine Clear Sodium Potassium Chloride Carbon Dioxide Anion Gap BUN Creatinine Est GFR (CKD-EPI) Glucose POC Glucose 118 POC Glucose Comment Calcium Troponin I High Sens B-Natriuretic Peptide 523.0 H Triglycerides Cholesterol LDL Cholesterol, Calc VLDL Cholesterol HDL Cholesterol Cholesterol/HDL Ratio Blood Type A Positive Antibody Screen Negative 04/30/23 04/30/23 04/30/23 13:25 16:42 17:51 Corrected WBC Uncorrected WBC Count RBC Hgb Hct MCV MCH MCHC RDW Plt Count MPV Neut % (Auto) Lymph % (Auto) [place] % (Auto) Eos % (Auto) Baso % (Auto) Nucleat RBC Rel Count Neut # (Auto) Lymph # (Auto) [place] # (Auto) Eos # (Auto) Baso # (Auto) PT INR APTT PHA Creatinine Clear Sodium Potassium Chloride Carbon Dioxide Anion Gap BUN Creatinine Est GFR (CKD-EPI) Glucose POC Glucose 130 149 POC Glucose Comment Glu2: cleaned meter Calcium Troponin I High Sens 53.7 H* B-Natriuretic Peptide Triglycerides Cholesterol LDL Cholesterol, Calc VLDL Cholesterol HDL Cholesterol Cholesterol/HDL Ratio Blood Type Antibody Screen 04/30/23 04/30/23 05/01/23 18:04 20:56 03:07 Corrected WBC Uncorrected WBC Count RBC Hgb Hct MCV MCH MCHC RDW Plt Count MPV Neut % (Auto) Lymph % (Auto) [place] % (Auto) Eos % (Auto) Baso % (Auto) Nucleat RBC Rel Count Neut # (Auto) Lymph # (Auto) [place] # (Auto) Eos # (Auto) Baso # (Auto) PT INR APTT PHA Creatinine Clear Sodium Potassium Chloride Carbon Dioxide Anion Gap BUN Creatinine Est GFR (CKD-EPI) Glucose POC Glucose 162 375 295 POC Glucose Comment Glu2: cleaned meter Calcium Troponin I High Sens B-Natriuretic Peptide Triglycerides Cholesterol LDL Cholesterol, Calc VLDL Cholesterol HDL Cholesterol Cholesterol/HDL Ratio Blood Type Antibody Screen 05/01/23 05/01/23 05/01/23 06:52 06:52 08:08 Corrected WBC 8.8 Uncorrected WBC Count 8.8 RBC 3.54 L Hgb 9.8 L Hct 29.9 L MCV 84.5 MCH 27.8 MCHC 32.9 RDW 17.7 H Plt Count 156 MPV 9.5 Neut % (Auto) 68.2 Lymph % (Auto) 16.8 [place] % (Auto) 14.1 Eos % (Auto) 0.6 Baso % (Auto) 0.3 Nucleat RBC Rel Count 0.1 Neut # (Auto) 6.0 Lymph # (Auto) 1.5 [place] # (Auto) 1.2 H Eos # (Auto) 0.0 Baso # (Auto) 0.0 PT INR APTT PHA Creatinine Clear 63.00 Sodium 134 L Potassium 4.5 Chloride 97 L Carbon Dioxide 32.9 H Anion Gap 8.6 BUN 17 Creatinine 0.77 Est GFR (CKD-EPI) > 60.0 Glucose 86 POC Glucose 85 POC Glucose Comment Glu2: cleaned meter Calcium 8.0 L Troponin I High Sens B-Natriuretic Peptide Triglycerides 30 Cholesterol 107 L LDL Cholesterol, Calc 50 VLDL Cholesterol 6 HDL Cholesterol 51 Cholesterol/HDL Ratio 2.1 Blood Type Antibody Screen 05/01/23 11:08 Corrected WBC Uncorrected WBC Count RBC Hgb Hct MCV MCH MCHC RDW Plt Count MPV Neut % (Auto) Lymph % (Auto) [place] % (Auto) Eos % (Auto) Baso % (Auto) Nucleat RBC Rel Count Neut # (Auto) Lymph # (Auto) [place] # (Auto) Eos # (Auto) Baso # (Auto) PT INR APTT PHA Creatinine Clear Sodium Potassium Chloride Carbon Dioxide Anion Gap BUN Creatinine Est GFR (CKD-EPI) Glucose POC Glucose 131 POC Glucose Comment Glu2: cleaned meter Calcium Troponin I High Sens B-Natriuretic Peptide Triglycerides Cholesterol LDL Cholesterol, Calc VLDL Cholesterol HDL Cholesterol Cholesterol/HDL Ratio Blood Type Antibody Screen Assessment / Plan Assessment and plan (1) Closed intertrochanteric fracture of right hip: Plan: 88 year old man POD 1 status post ORIF short IMN right intertrochanteric hip fracture - Edema reduction - Local wound care - Scar management - Pain control - Dressing change POD 2 - Medical comorbidities and management per the medical team - Coronary artery disease per cardiology: Patient will likely need cardiac intervention with angioplasty and/ or stenting when determined by cardiology - Nutrition support - Partial to fuill weight bearing as pain tolerance allows right lower extremityin the interim - Incentive spirometry - DVT prophylaxis: SCDs in the interim. 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 In the interim, patient was counseled on bone healing protocol including smoking cessation/ avoidance of nicotine products, appropriate weight bearing restrictions and limitations, and vitamin supplementation to aid in bone and fracture healing/ strengthening. Patient was counseled to take: 1) Vitamin C 500 mg PO Q daily 2) Calcium 500-600 mg/ Vitamin D 200-400 Units PO Q TID - Post op acute blood loss anemia Hgb 9.8: Continue iron supplementation and will monitor at this time. Given coronary artery disease, would posisbly transfuse if patient symptomatic and hemoglobin continues to drop - DC planning: would anticipate rehab placement due to hip fracture and pendingcardiology intervention Code(s): S72.141A - Displaced intertrochanteric fracture of right femur, initial encounter for closed fracture Status: Acute (2) Diabetes: Code(s): E11.9 - Type 2 diabetes mellitus without complications Status: Acute (3) Two-vessel coronary artery disease: Code(s): I25.10 - Atherosclerotic heart disease of [place] coronary artery without angina pectoris Status: Acute (4) Nonsustained monomorphic ventricular tachycardia: Code(s): I47.29 - Other ventricular tachycardia Status: Acute (5) Mild left ventricular systolic dysfunction (LVSD): Code(s): I51.89 - Other ill-defined heart diseases Status: Acute (6) Abnormal EKG: Code(s): R94.31 - Abnormal electrocardiogram [ECG] [EKG] Status: Acute Billing Billing Codes (IF APPLICABLE) List of Applicable Codes for [place] Documented By: Ashwini Conrad MD 05/01/23 112 3 Signed By: <Electronically signed by Ashwini Conrad MD> 05/01/23 1131 [facility] Work Phone: [phone] 300-271710-20-2023 Progress note Author Sushant Cordon [facility] April 30, 2023 9:13pm Note Date/Time April 30, 2023 9 :13pm [facility] [address] [place] [address] Hospitalist Progress Note Signed Patient: Ashwini Vickers MR#: [id number] : 1935 Acct:[id number] Age/Sex: 88 / M Adm Date: 3 Loc: Room: [address] [place] [address] Type: ADM IN Attending Dr: Sushant Cordon DO Copies to: ~ Date of Service: 04/30/2023 Subjective Subjective Narrative: Seen this evening the patient is sitting upright in bed and reading the local newspaper. Subjectively he has a mild amount of pain in the groin on the right hip on the side. He denies any nausea. He said he ate a good full dinner. He denies any upset stomach. No chest pain or pressure. He understands the report from the cardiac catheterization. I did show him the fluoroscopic images of the orthopedic surgery, because they were sitting on his bedside table. Exam Physical Exam Vital Signs: Temp Pulse Resp BP Pulse Ox O2 Del Method O2 Flow Rate 99.8 F H 60 18 163/72 H 96 Room Air 6 04/30/23 16:36 04/30/23 19:32 04/30/23 19:32 04/30/23 19:32 04/30/23 19:32 04/30/23 19:32 04/30/23 16:51 Narrative: GEN: Awake, alert, oriented x 3. Lungs: Clear to auscultation bilaterally, no wheezing, no crackles. Heart: Regular rate and rhythm, no murmurs, rubs, or gallops. Abdomen: Soft, normal bowel sounds, no rigidity, guarding, or acute peritoneal signs. Extremities: No swelling or cords in the calves bilaterally, no edema in the ankles bilaterally. Right hip fracture repair site is dressed with gauze bandage. Dressing is clean and dry and intact. Moderate edema in the leg as expected. Objective Lab Results 04/30/23 10:50 04/30/23 10:50 Meds Allergies and Active Meds Allergies No Known Allergies Allergy (Verified 04/28/23 12:20) Active Meds: Active Medications Generic Name Dose Route Start Last Admin Trade Name Freq PRN Reason Stop Dose Admin Acetaminophen 650 mg 04/28/23 17:19 Acetaminophen 325 Mg Tablet PO 04/27/24 17:18 Q4H PRN Pain Scale 1 - 3 or fever Acetaminophen 500 mg 04/30/23 21:30 Acetaminophen 500 Mg Tablet PO 05/03/23 21:29 Q6H TAVIA Hydrocodone Bitart/Acetaminophen 1 tab 04/28/23 18:34 Hydrocodone/Acetaminophen 5-325 Mg Tablet PO Q4H PRN Pain Hydrocodone Bitart/Acetaminophen 2 tab 04/28/23 18:34 04/29/23 20:47 Hydrocodone/Acetaminophen 5-325 Mg Tablet PO 2 tab Q4H PRN Administration pain Al Hydrox/Mg Hydrox/Simethicone 30 ml 04/30/23 09:42 Mag Hydrox/Al Hydrox/Simeth 30 Ml Udc PO 04/29/24 09:41 Q4H PRN Epigastric distress (Non-Card) Lipase/Protease/Amylase 2 cap 04/29/23 08:00 04/30/23 18:31 Lipa/Prot/Amyla 24-76-120k 1 Cap Capsule. PO 04/28/24 07:59 2 cap TID.WITH.MEALS TAVIA Administration Ascorbic Acid 500 mg 04/29/23 09:00 04/30/23 10:08 Ascorbic Acid 500 Mg Tablet PO 04/28/24 08:59 Not Given DAILY TAVIA Bisacodyl 10 mg 04/28/23 17:19 Bisacodyl 5 Mg Tablet. PO 04/27/24 17:18 DAILY PRN Constipation Bisacodyl 10 mg 04/28/23 17:19 Bisacodyl 10 Mg Supp.Rect [place] 04/27/24 17:18 DAILY PRN Constipation Calcium Carbonate 1 tab 04/29/23 08:00 04/30/23 18:31 Calcium Carbonate/Vitamin D3 500 Mg/200 Unit Tablet PO 04/28/24 07:59 1 tab TID.WITH.MEALS TAVIA Administration Dextrose 0 gm 04/28/23 17:14 04/30/23 10:04 Dextrose 50% In Water 25 Gm/50 Ml Syringe IV-PUSH 04/27/24 17:13 25 gm PRN PRN Administration Hypoglycemia Docusate Sodium 200 mg 04/28/23 21:00 04/30/23 10:08 Docusate 100 Mg Capsule PO 04/27/24 20:59 Not Given BID TAVIA Enoxaparin Sodium 40 mg 05/01/23 10:00 Enoxaparin 40 Mg/0.4 Ml Syringe SUBCUT 04/30/24 09:59 DAILY@1000 [facility] Glucose 0 gm 04/28/23 17:14 04/30/23 08:42 Dextrose 40% Gel 15 Gm Tube PO 04/27/24 17:13 15 gm PRN PRN Administration Hypoglycemia Hydromorphone HCl 1 mg 04/28/23 17:19 04/30/23 12:12 Hydromorphone 1 Mg/Ml Syringe IV-PUSH 1 mg Q4H PRN Administration Pain Dextrose/Sodium Chloride 1,000 mls @ 50 mls/hr 04/30/23 09:45 04/30/23 18:11 5 % Dextrose-0.45 % Nacl IV 04/29/24 09:44 50 mls/hr .Q20H TAVIA Administration Lactated Ringer's 1,000 mls @ 75 mls/hr 04/30/23 16:45 04/30/23 18:12 Lactated Ringers IV 04/29/24 16:44 Not Given .[id number] TAVIA Cefazolin Sodium 1 gm in 50 mls @ 100 mls/hr 04/30/23 23:00 Ancef IV 05/01/23 07:29 Q8H TAVIA Insulin Aspart 0 units 04/28/23 22:00 04/30/23 18:33 Insulin Aspart 300 Units/3 Ml Insuln.Pen SUBCUT 04/27/24 21:59 2 units TID.WM.HS TAVIA Administration Protocol Insulin Glargine 8 units 04/28/23 21:00 04/29/23 20:49 Insulin Glargine 300 Units/3 Ml Insuln.Pen SUBCUT 04/27/24 20:59 8 units QPM TAVIA Administration Ketorolac Tromethamine 15 mg 04/28/23 17:19 Ketorolac Tromethamine 30 Mg/Ml Vial IV-PUSH 05/03/23 17:18 Q6H PRN Pain Lidocaine HCl 0.1 ml 04/29/23 01:31 Lidocaine 1% 50 Ml Vial INTRADERMA PREOP PRN Venipuncture x 1 Dose Magnesium Hydroxide 30 ml 04/28/23 17:19 Magnesium Hydroxide Susp 30 Ml Udc PO 04/27/24 17:18 BID PRN Constipation Morphine Sulfate 2 mg 04/28/23 18:34 Morphine Sulfate 2 Mg/Ml Vial IV-PUSH Q2H PRN Pain scale 1-3 Morphine Sulfate 4 mg 04/28/23 18:34 Morphine Sulfate 4 Mg/Ml Cartridge IV-PUSH Q2H PRN Pain scale 4-6 Nitroglycerin 0.4 mg 04/28/23 17:19 Nitroglycerin 0.4 Mg Tab.Subl SUBLINGUAL 04/27/24 17:18 Q5M PRN Chest Pain Ondansetron HCl 4 mg 04/28/23 18:34 Ondansetron 4 Mg/2 Ml Vial IV-PUSH 04/27/24 18:33 Q6H PRN Nausea And Vomiting Ondansetron HCl 4 mg 04/30/23 09:42 Ondansetron 4 Mg/2 Ml Vial IV-PUSH 04/29/24 09:41 Q6H PRN Nausea And Vomiting Oxycodone HCl 5 mg 04/28/23 17:19 Oxycodone Ir 5 Mg Tablet PO Q4HR PRN Pain Paroxetine HCl 30 mg 04/29/23 09:00 04/30/23 10:08 Paroxetine 30 Mg Tablet PO 04/28/24 08:59 Not Given DAILY [facility] Potassium Chloride 40 meq 04/30/23 07:00 Potassium Chloride Er 20 Meq Tab.Er.Prt PO STAT PRN Hypokalemia Sennosides 2 tab 04/28/23 22:00 04/29/23 21:47 Sennosides 8.6 Mg Tablet PO 04/27/24 21:59 2 tab HS TAVIA Administration Sodium Chloride 0 ml 04/28/23 12:19 04/28/23 13:34 Sodium Chloride 0.9 % 10 Ml Syringe IV-PUSH 04/27/24 12:18 20 ml PRN PRN Administration Flush Sodium Chloride 0 ml 04/28/23 22:00 04/30/23 18:12 Sodium Chloride 0.9 % 10 Ml Syringe IV-PUSH 04/27/24 21:59 Not Given QSHIFT TAVIA Sodium Chloride 0 ml 04/28/23 18:34 04/30/23 10:04 Sodium Chloride 0.9 % 10 Ml Syringe IV-PUSH 04/27/24 18:33 10 ml PRN PRN Administration Flush Sodium Chloride 0 ml 04/29/23 01:31 Sodium Chloride 0.9 % 10 Ml Syringe IV-PUSH 04/28/24 01:30 PRN PRN Flush Sodium Chloride 0 ml 04/29/23 15:59 Sodium Chloride 0.9 % 10 Ml Syringe IV-PUSH 04/28/24 15:58 PRN PRN Flush Sodium Chloride 0 ml 04/30/23 09:42 Sodium Chloride 0.9 % 10 Ml Syringe IV-PUSH 04/29/24 09:41 PRN PRN Flush Tamsulosin HCl 0.4 mg 04/29/23 09:00 04/30/23 10:08 Tamsulosin 0.4 Mg Cap.Er.24h PO 04/28/24 08:59 Not Given DAILY TAVIA Triamcinolone Acetonide 1 applic 04/30/23 09:42 Triamcinolone 0.1% Cream 15 Gm Tube TOPICAL 04/29/24 09:41 QID PRN Irritation A&P - Hospitalist Assessment/Plan (1) Closed intertrochanteric fracture of right hip: (2) Diabetes: (3) Two-vessel coronary artery disease: (4) Nonsustained monomorphic ventricular tachycardia: (5) Mild left ventricular systolic dysfunction (LVSD): (6) Abnormal EKG: Plan Assessment: Acute right intertrochanteric hip fracture. S/P repair on 04/30/2023 Episode of hypoglycemia leading to the mechanical fall at home. 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 Finding of new left ventricular systolic function with ejection fraction of 40 to 45%. Brief run of nonsustained ventricular tachycardia. Two-vessel coronary artery disease with 100% proximal left anterior descending occlusion and 80% at the D1. Left circumflex with 50% proximal stenosis and 70%ostial OM1 disease. Iron is mildly low at 45 and iron saturation is mildly low at 13.6. Plan: Continue recovery therapies and rehabilitative therapies after the right hip fracture repair today. Interventional cardiology recommends percutaneous coronary intervention after the patient's surgery and rehabilitation and recovery. Progressively maximized on beta-sarah and lisinopril medical therapies in the timeframe after surgery. I will increase long-acting and short acting insulin as patient is now eating well and will have higher blood sugars. Documented By: Sushant Cordon DO [id number] Signed By: <Electronically signed by Sushant Cordon DO> 04/30/232112 [facility] Work Phone: 1([phone]) 993-700110-20-2023 Hospital Discharge instructions Additional Instructions Rehab to manage: - PT/OT to eval and treat - Monitor VS routine - Orthopedic assessments - Dx. Right hip fracture with surgical repair 04/30/23 -- Partial to full weight bearing as pain tolerance allows right lower extremity in the interim -- Wound care - Daily - Large hip bandaid - Monitor blood sugars - Dx. DM - Cardiac assessments - Routine skin assessments/care - Fall precautions - high fall risk, recent fall -------- DISCHARGE INSTRUCTIONS FOR HIP FRACTURE DIET -As tolerated. ACTIVITY -Sit ideally in high armed straight-backed chair. -May use toilet operator receptionist on commode. -Continue to use walker or crutches with partial to full weight bearing as pain tolerance allows -Continue Physical Therapy as instructed. -Keep dressing clean and dry. -Change dressing daily and as needed, may be removed to shower -You may shower on the third day postoperatively MEDICATIONS -Pain medication as directed. -Resume home medications as directed. -Follow the surgeon's specific instructions regarding anticoagulation medication: Aspirin 81 mg by mouth daily for cardiac protection and Lovenox 40 mg SubQ daily x 15 days for DVT prophylaxis postoperative hip fracture OTHER -Any problems- Call the office at [phone] or return to Emergency Room. -If you are having excessive or persistent pain, swelling, fever (oral temp >101), yellow-green foul smelling drainage or bleeding from incision, excessive redness of incision, nausea, vomiting, or any other problems, you should first call your surgeon at [phone] for advice. If you are unable to contact your surgeon, seek help from a hospital emergency room. FOLLOW UP -Call my office the first business day after discharge and ask for assistance with post-discharge plans, and appointments.[facility] Work Phone: [phone] 106-261510-20-2023 Progress note Author Anat Perez [facility] April 30, 2023 10:32am Note Date/Time April 30, 2023 1 0:32am [facility] EN[facility] [address] [place] [address] Cardiology Progress Note Signed Patient: Ashwini Vickers MR#: [id number] : 1935 Acct:[id number] Age/Sex: 88 / M Adm Date: 3 Loc: Room: [address] [place] [address] Type: ADM IN Attending Dr: Sushant Cordon DO Copies to: ~ Date of Service: 04/30/2023 Subjective Interval history: Mr. Vickers is a 88 year old male with past medical history significant for diabetes s/p pancreatectomy, BPH who presented following a fall and sustained right intertrochanteric hip fracture. Patient reports feeling dizzy prior to the fall and had blood glucose of 40. He landed on his hip but did not hit his head. Patient reports several episodes of hypoglycemia see me in the past. On arrival to the ED patient was noted to have mild troponin elevation in a flattrend. BNP elevated at 665. EKG showed normal sinus rhythm with T wave inversions in V3 to V6. Cardiology was consulted for preop risk stratification priorto hip surgery. Patient reports being physically active prior to the fall. 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 He is able to go up and down stairs without any limitations. He denies any cardiac history. He smoked 1/4 pack of cigarettes daily and quit a few months ago. He smokes a cigar daily. Echo completed today was notable for decreased EF of 40-45% with severe anteriorwall hypokinesis. Patient denies dyspnea, chest pain, BLE edema, weight gain, orthopnea or PND. Review of telemetry shows 1 episode of 9 beat run of VT. Patient was asymptomatic. Interval history 04/30/2023: No acute events overnight. Denies chest pain or dyspnea. [facility] scheduled for this AM (findings as below) Exam Physical Exam Vital Signs: Temp Pulse Resp BP Pulse Ox O2 Del Method 98.6 F 63 16 125/62 95 Room Air 04/30/23 02:49 04/30/23 02:49 04/30/23 02:49 04/30/23 02:49 04/30/23 02:49 04/30/23 02:49 Narrative: GEN: AAOx3. No acute distress Neck: No JVD. Lungs: Clear to auscultation bilaterally, no wheezing, no crackles. Heart: Regular rate and rhythm. Normal S1-S2. No murmurs Abdomen: Soft, nontender, nondistended, bowel sounds present. Extremities: No BLE edema Neuro: AAOx3. No focal deficits. Psychiatric: Normal mood and affect Objective Labs 04/30/23 05:30 04/30/23 05:30 Labs: Laboratory Results - last 24 hr 04/28/23 04/28/23 04/29/23 18:44 18:44 10:40 Corrected WBC Uncorrected WBC Count RBC Hgb Hct MCV MCH MCHC RDW Plt Count MPV Neut % (Auto) Lymph % (Auto) [place] % (Auto) Eos % (Auto) Baso % (Auto) Nucleat RBC Rel Count Neut # (Auto) Lymph # (Auto) [place] # (Auto) Eos # (Auto) Baso # (Auto) PT INR APTT PHA Creatinine Clear Sodium Potassium Chloride Carbon Dioxide Anion Gap BUN Creatinine Est GFR (CKD-EPI) Glucose POC Glucose 81 POC Glucose Comment Glu2: cleaned meter Estimat Average Glucose 309 Hemoglobin A1c 12.4 H Fructosamine 565 H Calcium Troponin I High Sens 04/29/23 04/29/23 04/30/23 17:06 21:00 04:01 Corrected WBC Uncorrected WBC Count RBC Hgb Hct MCV MCH MCHC RDW Plt Count MPV Neut % (Auto) Lymph % (Auto) [place] % (Auto) Eos % (Auto) Baso % (Auto) Nucleat RBC Rel Count Neut # (Auto) Lymph # (Auto) [place] # (Auto) Eos # (Auto) Baso # (Auto) PT INR APTT PHA Creatinine Clear Sodium Potassium Chloride Carbon Dioxide Anion Gap BUN Creatinine Est GFR (CKD-EPI) Glucose POC Glucose 238 323 68 POC Glucose Comment Estimat Average Glucose Hemoglobin A1c Fructosamine Calcium Troponin I High Sens 04/30/23 04/30/23 04/30/23 04:35 05:30 05:30 Corrected WBC 9.0 Uncorrected WBC Count 9.0 RBC 3.98 Hgb 11.2 L Hct 33.7 L MCV 84.7 MCH 28.1 MCHC 33.2 RDW 18.0 H Plt Count 173 MPV 9.1 Neut % (Auto) 60.6 Lymph % (Auto) 22.0 [place] % (Auto) 16.4 Eos % (Auto) 0.6 Baso % (Auto) 0.4 Nucleat RBC Rel Count 0.1 Neut # (Auto) 5.4 Lymph # (Auto) 2.0 [place] # (Auto) 1.5 H Eos # (Auto) 0.1 Baso # (Auto) 0.0 PT INR APTT PHA Creatinine Clear 57.66 Sodium 134 L Potassium 4.4 Chloride 98 Carbon Dioxide 35.0 H Anion Gap 5.4 L BUN 12 Creatinine 0.71 Est GFR (CKD-EPI) > 60.0 Glucose 72 POC Glucose 133 POC Glucose Comment Estimat Average Glucose Hemoglobin A1c Fructosamine Calcium 8.5 L Troponin I High Sens 04/30/23 04/30/23 04/30/23 05:30 05:30 06:32 Corrected WBC Uncorrected WBC Count RBC Hgb Hct MCV MCH MCHC RDW Plt Count MPV Neut % (Auto) Lymph % (Auto) [place] % (Auto) Eos % (Auto) Baso % (Auto) Nucleat RBC Rel Count Neut # (Auto) Lymph # (Auto) [place] # (Auto) Eos # (Auto) Baso # (Auto) PT 14.8 H INR 1.2 APTT 29.5 PHA Creatinine Clear Sodium Potassium Chloride Carbon Dioxide Anion Gap BUN Creatinine Est GFR (CKD-EPI) Glucose POC Glucose 63 POC Glucose Comment Estimat Average Glucose Hemoglobin A1c Fructosamine Calcium Troponin I High Sens 26.8 H 04/30/23 04/30/23 06:55 10:02 Corrected WBC Uncorrected WBC Count RBC Hgb Hct MCV MCH MCHC RDW Plt Count MPV Neut % (Auto) Lymph % (Auto) [place] % (Auto) Eos % (Auto) Baso % (Auto) Nucleat RBC Rel Count Neut # (Auto) Lymph # (Auto) [place] # (Auto) Eos # (Auto) Baso # (Auto) PT INR APTT PHA Creatinine Clear Sodium Potassium Chloride Carbon Dioxide Anion Gap BUN Creatinine Est GFR (CKD-EPI) Glucose POC Glucose 75 53 L* POC Glucose Comment Estimat Average Glucose Hemoglobin A1c Fructosamine Calcium Troponin I High Sens A&P - Cardiology (1) Diabetes: Code(s): E11.9 - Type 2 diabetes mellitus without complications Status: Acute (2) Closed intertrochanteric fracture of right hip: Code(s): S72.141A - Displaced intertrochanteric fracture of right femur, initial encounter for closed fracture Status: Acute (3) Elevated troponin: Code(s): R79.89 - Other specified abnormal findings of blood chemistry Status: Acute (4) Abnormal EKG: Code(s): R94.31 - Abnormal electrocardiogram [ECG] [EKG] Status: Acute (5) Mild left ventricular systolic dysfunction (LVSD): Code(s): I51.89 - Other ill-defined heart diseases Status: Acute (6) Nonsustained monomorphic ventricular tachycardia: Code(s): I47.29 - Other ventricular tachycardia Status: Acute Plan 88 year old male with past medical history significant for diabetes s/p pancreatectomy, BPH who presented following a fall and sustained right intertrochanteric hip fracture. He was found to have EKG changes and elevated troponin. Cardiology was consulted for preop risk stratification. EKG showed normal sinus rhythm with T wave inversions in V3 to V6. Echo completed today notable for decreased EF of 40-45% with severe anterior wall hypokinesis Assessment: Possible Takotsubo cardiomyopathy vs coronary artery disease. New LV dysfunction-EF 40-45% with severe anterior wall hypokinesis Non-ACS troponin elevation Nonsustained VT Right hip intertrochanteric fracture History of diabetes secondary to pancreatectomy Dizziness/syncope due to recurrent hypoglycemia Recommendations: - [facility] this am is significant for two-vessel coronary artery disease- 100% prox LAD occlusion; 80% D1; LCx has 50% prox stenosis with 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 - Discussed with fairing worker- Dr Davis regarding timing of intervention- given that pt did not have NE on presentation and was very functional prior to hip fracture with no cardiac limitations, will plan to do PCI after surgery and rehab. - [place] Activity Status Index of 50.7 (Achieves 8 METS); RCRI score of 2 (Class III risk-10.1% 30day risk of MACE) - Pt is undergoing low risk surgery-May proceed with R hip ORIF this afternoon - Cardiology will be available perioperatively. - Will start ASA, statin, BB and Lisinopril after surgery. Documented By: Anat Perez MD 04/30/23 1023 Signed By: <Electronically signed by Anat Perez MD> 04/30/23 1032 [facility] Work Phone: 1(874) 269-724310-20-2023 [facility] Progress note Author Sushant Cordon [facility] April 29, 2023 6:28pm Note Date/Time April 29, 2023 6 :28pm [facility] EN[facility] [address] [place] [address] Hospitalist Progress Note Signed Patient: Ashwini Vickers MR#: [id number] : 1935 Acct:[id number] Age/Sex: 88 / M Adm Date: 3 Loc: N Room: [address] [place] [address] Type: ADM IN Attending Dr: Sushant Cordon DO Copies to: ~ Date of Service: 04/29/2023 Subjective Subjective Narrative: The patient says that he feels comfortable. He denies any chest pain or any chest pressure. He denies any dyspnea. He denies any fevers chills. Denies any headache or lightheadedness or dizziness. He did admit to abdominal discomfort from hunger earlier today but says that he had a good dinner. Understands plans for cardiac catheterization in the morning. Clinical update: Echocardiogram today shows a decreased left ventricular ejection fraction of 40 to 45% with severe anterior wall hypokinesis. He did have an ventricular tachycardia today in the [place] acute symptomatology. Exam Physical Exam Vital Signs: Temp Pulse Resp BP Pulse Ox O2 Del Method 98.4 F 58 L 12 125/51 L 97 Room Air 04/29/23 16:24 04/29/23 16:24 04/29/23 16:24 04/29/23 16:24 04/29/23 16:24 04/29/23 16:24 Narrative: GEN: Awake, alert, oriented x 3. Lungs: Clear to auscultation bilaterally, no wheezing, no crackles. Heart: Regular rate and rhythm, no murmurs, rubs, or gallops. Abdomen: Soft, normal bowel sounds, no rigidity, guarding, or acute peritoneal signs. Extremities: No swelling or cords in the calves bilaterally, no edema in the ankles bilaterally. Objective Lab Results 04/29/23 05:44 04/29/23 05:44 Meds Allergies and Active Meds Allergies No Known Allergies Allergy (Verified 04/28/23 12:20) Active Meds: Active Medications Generic Name Dose Route Start Last Admin Trade Name Freq PRN Reason Stop Dose Admin Acetaminophen 650 mg 04/28/23 17:19 Acetaminophen 325 Mg Tablet PO 04/27/24 17:18 Q4H PRN Pain Scale 1 - 3 or fever Hydrocodone Bitart/Acetaminophen 1 tab 04/28/23 18:34 Hydrocodone/Acetaminophen 5-325 Mg Tablet PO Q4H PRN Pain Hydrocodone Bitart/Acetaminophen 2 tab 04/28/23 18:34 04/29/23 14:28 Hydrocodone/Acetaminophen 5-325 Mg Tablet PO 2 tab Q4H PRN Administration pain Lipase/Protease/Amylase 2 cap 04/29/23 08:00 04/29/23 17:15 Lipa/Prot/Amyla 24-76-120k 1 Cap Capsule.Dr SUNSHINE 04/28/24 07:59 2 cap TID.WITH.MEALS TAVIA Administration Ascorbic Acid 500 mg 04/29/23 09:00 04/29/23 08:57 Ascorbic Acid 500 Mg Tablet PO 04/28/24 08:59 Not Given DAILY TAVIA Bisacodyl 10 mg 04/28/23 17:19 Bisacodyl 5 Mg Tablet.Dr PO 04/27/24 17:18 DAILY PRN Constipation Bisacodyl 10 mg 04/28/23 17:19 Bisacodyl 10 Mg Supp.Rect [place] 04/27/24 17:18 DAILY PRN Constipation Calcium Carbonate 1 tab 04/29/23 08:00 04/29/23 17:15 Calcium Carbonate/Vitamin D3 500 Mg/200 Unit Tablet PO 04/28/24 07:59 1 tab TID.WITH.MEALS TAVIA Administration Dextrose 0 gm 04/28/23 17:14 04/29/23 04:19 Dextrose 50% In Water 25 Gm/50 Ml Syringe IV-PUSH 04/27/24 17:13 25 gm PRN PRN Administration Hypoglycemia Docusate Sodium 200 mg 04/28/23 21:00 04/29/23 08:57 Docusate 100 Mg Capsule PO 04/27/24 20:59 Not Given BID TAVIA Glucose 0 gm 04/28/23 17:14 04/29/23 03:58 Dextrose 40% Gel 15 Gm Tube PO 04/27/24 17:13 15 gm PRN PRN Administration Hypoglycemia Hydromorphone HCl 1 mg 04/28/23 17:19 04/29/23 09:40 Hydromorphone 1 Mg/Ml Syringe IV-PUSH 1 mg Q4H PRN Administration Pain Dextrose/Lactated Ringer's 1,000 mls @ 75 mls/hr 04/28/23 17:15 04/29/23 14:28 5 % Dextrose-Lactated Ringers IV 04/27/24 17:14 125 mls/hr .[id number] TAVIA Administration Lactated Ringer's 1,000 mls @ 20 mls/hr 04/29/23 01:31 04/29/23 08:57 Lactated Ringers IV 04/30/23 01:30 Not Given .Q24H ONE Insulin Aspart 0 units 04/28/23 22:00 04/29/23 17:16 Insulin Aspart 300 Units/3 Ml Insuln.Pen SUBCUT 04/27/24 21:59 3 units TID.WM.HS TAVIA Administration Protocol Insulin Glargine 8 units 04/28/23 21:00 04/28/23 21:36 Insulin Glargine 300 Units/3 Ml Insuln.Pen SUBCUT 04/27/24 20:59 8 units QPM TAVIA Administration Ketorolac Tromethamine 15 mg 04/28/23 17:19 Ketorolac Tromethamine 30 Mg/Ml Vial IV-PUSH 05/03/23 17:18 Q6H PRN Pain Lidocaine HCl 0.1 ml 04/29/23 01:31 Lidocaine 1% 50 Ml Vial INTRADERMA PREOP PRN Venipuncture x 1 Dose Magnesium Hydroxide 30 ml 04/28/23 17:19 Magnesium Hydroxide Susp 30 Ml Udc PO 04/27/24 17:18 BID PRN Constipation Miscellaneous Information 1 each 04/29/23 15:59 Consult To Pharmacy MISCELLANE 04/28/24 15:58 .PHACONSULT PRN ZZ.Pharmacy Consult Protocol Morphine Sulfate 2 mg 04/28/23 18:34 Morphine Sulfate 2 Mg/Ml Vial IV-PUSH Q2H PRN Pain scale 1-3 Morphine Sulfate 4 mg 04/28/23 18:34 Morphine Sulfate 4 Mg/Ml Cartridge IV-PUSH Q2H PRN Pain scale 4-6 Nitroglycerin 0.4 mg 04/28/23 17:19 Nitroglycerin 0.4 Mg Tab.Subl SUBLINGUAL 04/27/24 17:18 Q5M PRN Chest Pain Ondansetron HCl 4 mg 04/28/23 18:34 Ondansetron 4 Mg/2 Ml Vial IV-PUSH 04/27/24 18:33 Q6H PRN Nausea And Vomiting Oxycodone HCl 5 mg 04/28/23 17:19 Oxycodone Ir 5 Mg Tablet PO Q4HR PRN Pain Paroxetine HCl 30 mg 04/29/23 09:00 04/29/23 08:57 Paroxetine 30 Mg Tablet PO 04/28/24 08:59 Not Given DAILY TAVIA Potassium Chloride 40 meq 04/30/23 07:00 Potassium Chloride Er 20 Meq Tab.Er.Prt PO STAT PRN Hypokalemia Sennosides 2 tab 04/28/23 22:00 04/28/23 21:26 Sennosides 8.6 Mg Tablet PO 04/27/24 21:59 Not Given HS TAVIA Sodium Chloride 0 ml 04/28/23 12:19 04/28/23 13:34 Sodium Chloride 0.9 % 10 Ml Syringe IV-PUSH 04/27/24 12:18 20 ml PRN PRN Administration Flush Sodium Chloride 0 ml 04/28/23 22:00 04/29/23 14:30 Sodium Chloride 0.9 % 10 Ml Syringe IV-PUSH 04/27/24 21:59 Not Given QSHIFT TAVIA Sodium Chloride 0 ml 04/28/23 18:34 Sodium Chloride 0.9 % 10 Ml Syringe IV-PUSH 04/27/24 18:33 PRN PRN Flush Sodium Chloride 0 ml 04/29/23 01:31 Sodium Chloride 0.9 % 10 Ml Syringe IV-PUSH 04/28/24 01:30 PRN PRN Flush Sodium Chloride 0 ml 04/29/23 15:59 Sodium Chloride 0.9 % 10 Ml Syringe IV-PUSH 04/28/24 15:58 PRN PRN Flush Tamsulosin HCl 0.4 mg 04/29/23 09:00 04/29/23 08:57 Tamsulosin 0.4 Mg Cap.Er.24h PO 04/28/24 08:59 Not Given DAILY TAVIA A&P - Hospitalist Assessment/Plan (1) Closed intertrochanteric fracture of right hip: (2) Elevated troponin: (3) Diabetes: (4) Nonsustained monomorphic ventricular tachycardia: (5) Mild left ventricular systolic dysfunction (LVSD): (6) Abnormal EKG: Plan Assessment: Acute right intertrochanteric hip fracture. Episode of hypoglycemia leading to the mechanical fall at home. Episode of hypoglycemia this morning. 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 Finding of new left ventricular systolic function with ejection fraction of 40 to 45%. Brief run of nonsustained ventricular tachycardia. Hemoglobin A1c is 12.4 Iron is mildly low at 45 and iron saturation is mildly low at 13.6. Plan: Cardiac catheterization planned for tomorrow morning. Continue IV fluids with lactated Ringer's with dextrose tonight to reduce the risk of hypoglycemia. On a reduced dose of long-acting insulin here in the hospital and sliding scale level 2. Documented By: Sushant Cordon DO 1823 Signed By: <Electronically signed by Sushant Cordon DO> 04/29/231827 [facility] Work Phone: [phone]) 792-385910-19-2023 Consult note Author Anat Perez [facility] April 29, 2023 5:34pm Note Date/Time April 29, 2023 5 :07pm [facility] [address] [place] [address] Cardiology Consult Note Signed Patient: Ashwini Vickers MR#: [id number] : 1935 Acct:[id number] Age/Sex: 88 / M Adm Date: 3 Loc: 4N Room: [address] [place] [address] Type: ADM IN Attending Dr: Sushant Cordno DO Copies to: DO Anat Cooper MD Robert J Vaschak, DO~ Cardiology HPI History of Present Illness Consult Date: 04/29/23 Reason for Consult: Preop risk stratification HPI: Mr. Vickers is a 88 year old male with past medical history significant for diabetes s/p pancreatectomy, BPH who presented following a fall and sustained right intertrochanteric hip fracture. Patient reports feeling dizzy prior to the fall and had blood glucose of 40. He landed on his hip but did not hit his head. Patient reports several episodes of hypoglycemia see me in the past. On arrival to the ED patient was noted to have mild troponin elevation in a flattrend. BNP elevated at 665. EKG showed normal sinus rhythm with T wave inversions in V3 to V6. Cardiology was consulted for preop risk stratification prior to hip surgery. Patient reports being physically active prior to the fall. 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 He is able to go up and down stairs without any limitations. He denies any cardiac history. He smoked 1/4 pack of cigarettes daily and quit a few months ago. He smokes a cigar daily. Echo completed today was notable for decreased EF of 40-45% with severe anteriorwall hypokinesis. Patient denies dyspnea, chest pain, BLE edema, weight gain, orthopnea or PND. Review of telemetry shows 1 episode of 9 beat run of VT. Patient was asymptomatic. Review of Systems Review of Systems All other systems reviewed & are negative unless noted below or in HPI [facility] Medical History (Updated 04/29/23 @ 17:34 by Anat Perez MD) BPH (benign prostatic hyperplasia) Diabetes type 1 Surgical History (Updated 04/28/23 @ 17:34 by Sushant Cordon DO) History of pancreatectomy Family History (Updated 04/28/23 @ 16:16 by Vivian Munoz RN) Brother Cancer Son Sarcoma Social History Smoking Status: Current some day smoker Tobacco Type: cigars Substance Use Type: Alcohol Meds Medications and Allergies Allergies No Known Allergies Allergy (Verified 04/28/23 12:20) Home Medications insulin aspart U-100 100 unit/mL (3 mL) subcutaneous pen (Novolog FlexPen U-100 Insulin aspart) 5 unit subcut BID.PC.BKFAST.LUNCH 04/28/23 [History Confirmed 04/28/23] insulin aspart U-100 100 unit/mL (3 mL) subcutaneous pen (Novolog FlexPen U-100 Insulin aspart) 8 unit subcut QACDINNER 04/28/23 [History Confirmed 04/28/23] insulin glargine 100 unit/mL (3 mL) subcutaneous pen (Lantus Solostar U-100 Insulin) 18 unit subcut HS 04/28/23 [History Confirmed 04/28/23] qhticj-mtayhubo-nptwamd 24,000-76,000-120,000 unit capsule,delayed rel (Creon) 2cap PO TID 04/28/23 [History Confirmed 04/28/23] paroxetine HCl 30 mg tablet 30 mg PO DAILY 04/28/23 [History Confirmed 04/28/23] tamsulosin 0.4 mg capsule 0.4 mg PO DAILY 04/28/23 [History Confirmed 04/28/23] Exam Physical Exam Vital Signs: Temp Pulse Resp BP Pulse Ox O2 Del Method 98.0 F 56 L 16 138/67 95 Room Air 04/29/23 10:33 04/29/23 10:33 04/29/23 10:33 04/29/23 10:33 04/29/23 10:33 04/29/23 10:33 Narrative: GEN: AAOx3. No acute distress Neck: No JVD. Lungs: Clear to auscultation bilaterally, no wheezing, no crackles. Heart: Regular rate and rhythm. Normal S1-S2. No murmurs Abdomen: Soft, nontender, nondistended, bowel sounds present. Extremities: No BLE edema Neuro: AAOx3. No focal deficits. Psychiatric: Normal mood and affect KATY Risk Score KATY Risk Score Predictor Historical: Age > 65 Years Old Presentation: Increased Cardiac Marker and ST Deviation >/=0.05mV Score Risk Score (0-7): 3 Results Labs 04/29/23 05:44 04/29/23 05:44 Lab results: Lipids 04/29/23 Range/Units 05:44 Triglycerides 32 (0-149) mg/dL Cholesterol 143 (140-200) mg/dL HDL Cholesterol 57 (23-92) mg/dL Cholesterol/HDL Ratio 2.5 (<5.0) CBC 04/29/23 Range/Units 05:44 RBC 3.88 L (3.90-5.60) X10E6/uL Hgb 10.9 L (13.0-17.0) g/dL Hct 32.9 L (38.8-50.0) % Plt Count 186 (150-450) x10E3/uL Neut # (Auto) 4.3 (1.8-7.7) x10E3/uL Lymph # (Auto) 2.0 (1.00-4.8) x10E3/uL [place] # (Auto) 1.1 H (0.0-0.8) x10E3/uL Eos # (Auto) 0.1 (0.0-0.45) x10E3/uL Baso # (Auto) 0.0 (0.0-0.2) x10E3/uL Comprehensive Metabolic Panel 04/29/23 Range/Units 05:44 Sodium 136 (136-145) mmol/L Potassium 4.8 (3.5-5.1) mmol/L Chloride 100 (98-107) mmol/L Carbon Dioxide 32.3 H (21.0-31.0) mmol/L BUN 15 (7-25) mg/dL Creatinine 0.79 (0.70-1.30) mg/dL Glucose 106 H (70-100) mg/dL Calcium 8.4 L (8.6-10.3) mg/dL Intake and Output 04/29/23 04/29/23 04/29/23 07:59 15:59 23:59 Intake Total 0 / 1000 1000 / 1000 Output Total 700 / 1450 750 / 1450 Balance -700 / -450 250 / -450 Intake: IV 1000 / 1000 Dextrose 5 %-Lactated Ringers 1 1000 / 1000 ,000 ml @ 125 mls/hr IV .Q8H [facility] Rx#:[id number] Oral 0 / 0 0 / 0 Output: Urine Amount (Catheter) 700 / 1450 750 / 1450 Urethral (Kimble) 700 / 1450 750 / 1450 Other: Weight 61.6 kg Patient Weight 04/29/23 23:59 Weight 61.6 kg Lab 04/28/23 13:20 PT 11.8 INR 1.0 APTT 27.8 A&P - Cardiology (1) Diabetes: Code(s): E11.9 - Type 2 diabetes mellitus without complications (2) Closed intertrochanteric fracture of right hip: Code(s): S72.141A - Displaced intertrochanteric fracture of right femur, initial encounter for closed fracture (3) Elevated troponin: Code(s): R79.89 - Other specified abnormal findings of blood chemistry (4) Abnormal EKG: Code(s): R94.31 - Abnormal electrocardiogram [ECG] [EKG] (5) Mild left ventricular systolic dysfunction (LVSD): Code(s): I51.89 - Other ill-defined heart diseases (6) Nonsustained monomorphic ventricular tachycardia: Code(s): I47.29 - Other ventricular tachycardia Plan 88 year old male with past medical history significant for diabetes s/p pancreatectomy, BPH who presented following a fall and sustained right intertrochanteric hip fracture. He was found to have EKG changes and elevated troponin. Cardiology was consulted for preop risk stratification. EKG showed normal sinus rhythm with T wave inversions in V3 to V6. Echo completed today notable for decreased EF of 40-45% with severe anterior wall hypokinesis Assessment: Possible Takotsubo cardiomyopathy vs coronary artery disease. 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 He may have a stress induced cardiomyopathy however he is diabetic which raises the possibility of silent ischemia. -Given EKG findings, non sustained VT on telemetry and new LV dysfunction would ideally like to rule out significant coronary artery disease (Left main or proximal LAD disease) prior to surgery. -Will plan for [facility] tomorrow for further evaluation/risk stratification. NPO past midnight. Documented By: Anat Perez MD 04/29/23 1704 Signed By: <Electronically signed by Anat Perez MD> 04/29/23 1459 [facility] Work Phone: 1(672) 617-517910-18-2023 Consult note Author Ashwini Conrad [facility] April 28, 2023 6:47pm Note Date/Time April 28, 2023 6 :43pm [facility] [address] [place] [address] Orthopedic Consult Note Signed Patient: Ashwini Vickers MR#: [id number] : 1935 Acct:[id number] Age/Sex: 88 / M Adm Date: 3 Loc: 4N Room: [address] [place] [address] Type: ADM IN Attending Dr: Sushant Cordon DO Copies to: MD Sushant Carlos DO Robert J Vaschak, DO~ History of Present Illness HPI Consult date: 04/28/2023 Requesting provider: Sushant Cordon DO Consult reason: fracture History of present illness: 88-year-old man admitted with right hip pain and inability to bear weight following mechanical fall from standing height. Patient reports that he was feeling lightheaded and dizzy, likely from his bloodsugars being low, reports that his blood sugar was around 40, where is his normal ranges anywhere from 70-180. Patient ports he began feeling slightly lightheaded and dizzy but denies any chest pain or shortness of breath. He reports he did not blackout or lose consciousness or hit his head. Patient had the immediate onset of right hip pain following the fall with inability to bear weight at the right lower extremity. Patient was brought to the emergency room for further evaluation where x-rays did reveal a nondisplaced right intertrochanteric hip fracture. Patient has been admitted for further coordination of care and surgical management. Patient reports he is a community ambulator and does not use assist devices at baseline Review of Systems Review of Systems All other systems reviewed & are negative unless noted below or in HPI [facility] Medical History (Updated 04/28/23 @ 17:35 by Sushant Cordon DO) BPH (benign prostatic hyperplasia) Diabetes type 1 Surgical History (Updated 04/28/23 @ 17:34 by Sushant Cordon DO) History of pancreatectomy Family History (Updated 04/28/23 @ 16:16 by Vivian Munoz RN) Brother Cancer Son Sarcoma Social History Smoking Status: Current some day smoker Tobacco Type: cigars Substance Use Type: Alcohol Allergies & Medications Medications and Allergies Allergies No Known Allergies Allergy (Verified 04/28/23 12:20) Home Medications insulin aspart U-100 100 unit/mL (3 mL) subcutaneous pen (Novolog FlexPen U-100 Insulin aspart) 5 unit subcut BID.PC.BKFAST.LUNCH 04/28/23 [History Confirmed 04/28/23] insulin aspart U-100 100 unit/mL (3 mL) subcutaneous pen (Novolog FlexPen U-100 Insulin aspart) 8 unit subcut QACDINNER 04/28/23 [History Confirmed 04/28/23] insulin glargine 100 unit/mL (3 mL) subcutaneous pen (Lantus Solostar U-100 Insulin) 18 unit subcut HS 04/28/23 [History Confirmed 04/28/23] avwsyi-irmzsyit-jpudqoa 24,000-76,000-120,000 unit capsule,delayed rel (Creon) 2cap PO TID 04/28/23 [History Confirmed 04/28/23] paroxetine HCl 30 mg tablet 30 mg PO DAILY 04/28/23 [History Confirmed 04/28/23] tamsulosin 0.4 mg capsule 0.4 mg PO DAILY 04/28/23 [History Confirmed 04/28/23] Exam Physical Exam Vital Signs: Temp Pulse Resp BP Pulse Ox O2 Del Method 98.0 F 66 18 175/89 H 96 Room Air 04/28/23 17:32 04/28/23 17:32 04/28/23 17:32 04/28/23 17:32 04/28/23 17:32 04/28/23 16:24 Narrative: GENERAL Awake, alert, oriented, and in no acute distress UPPER EXTREMITY Negative Tenderness to palpation at the BUE B Radial pulse 2+ and intact B Sensory intact to light touch at the axillary/ radial/ ulnar/ median nerve distributions B Motor intact EPL/ FPL/ Dorsal interosseous ABduction/ Palmar interosseous ADduction/ DIP/ PIP/ EIP/ EDC/ EDM/ wrist extension & flexion/ elbow extension &flexion/ shoulder forward elevation & abduction LOWER EXTREMITY R LE clinically equal limb length and rotation compared to L LE Positive pain with axial load R hip Positive pain with log roll maneuver R hip Negative ecchymosis/ hematoma R hip Negative cuts/ breaks/ abrasions of skin R hip Negative Tenderness to palpation at the Right hip R Dorsalis pedis pulse 2+ and intact R Sensory intact to light touch distally at the tibial/ sural/ saphenous/ deep peroneal/ superficial peroneal nerve distributions R Motor intact EHL/ FHL/ ankle dorsiflexion/ ankle plantarflexion/ quadriceps firing Secondary survey negative for other areas of point tenderness distally at the right lower extremity along the knee, tibia, ankle, and foot Secondary survey negative for other areas of point tenderness along the left lower extremity CARDIOVASCULAR RRR by palpation RESPIRATORY No audible wheezes HEENT EOMI Results Lab Results 04/28/23 13:20 04/28/23 13:20 Labs: Laboratory Results - Last 48 hrs. 04/28/23 17:48: POC Glucose 156, POC Glucose Comment Glu2: cleaned meter 04/28/23 16:30: Troponin I High Sens 38.3 H 04/28/23 16:24: POC Glucose 137 04/28/23 15:00: Urine Color Yellow, Urine Appearance Clear, Urine pH 6.5, Ur Specific Caney 1.009, Urine Protein Negative, Urine Glucose (UA) Normal, UrineKetones Negative, Urine Occult Blood Negative, Urine Nitrite Negative, Urine Bilirubin Negative, Urine Urobilinogen Normal, Ur Leukocyte Esterase Negative 04/28/23 13:20: B-Natriuretic Peptide 665.0 H 04/28/23 13:20: Troponin I High Sens 35.5 H 04/28/23 13:20: PHA Creatinine Clear 60.38, Sodium 136, Potassium 4.9, Chloride 101, Carbon Dioxide 30.4, Anion Gap 9.5, BUN 15, Creatinine 0.71, Est GFR (CKD-EPI) > 60.0, Glucose 124 H, Calcium 9.0, Total Bilirubin 0.3, AST 46 H, ALT 34, Alkaline Phosphatase 108 H, Total Protein 7.2, Albumin 4.0, Globulin 3.2, Albumin/Globulin Ratio 1.3 04/28/23 13:20: PT 11.8, INR 1.0, APTT 27.8 04/28/23 13:20: Corrected WBC 9.7, Uncorrected WBC Count 9.7, RBC 4.12, Hgb 11.5L, Hct 34.8 L, MCV 84.3, MCH 28.0, MCHC 33.2, RDW 18.0 H, Plt Count 206, MPV 9.3, Neut % (Auto) 75.0, Lymph % (Auto) 14.8, [place] % (Auto) 9.3, Eos % (Auto) 0.5, Baso % (Auto) 0.4, Nucleat RBC Rel Count 0.1, Neut # (Auto) 7.3, Lymph # (Auto) 1.4, [place] # (Auto) 0.9 H, Eos # (Auto) 0.0, Baso # (Auto) 0.0, Monocyte Dist Width 18.61 H & H 04/28/23 Range/Units 13:20 Hgb 11.5 L (13.0-17.0) g/dL Hct 34.8 L (38.8-50.0) % Coagulation 04/28/23 Range/Units 13:20 INR 1.0 All other labs are normal. Imaging & Diagnostic Results Imaging/Diagnostics: [place] ([facility] [place] Right FEMUR/RIGHT HIP/PELVIS: AP of the pelvis as well as AP and lateral of the right hip and femur reviewed. Images demonstrates a nondisplaced fracture throughout the intertrochanteric area at the right hip. Shenton's line is maintained. Femoral lengths appear to be equal compared to the contralateral left hip. There does appear to be mild peripheral calcifications near the area of the hip joint which may represent chondrocalcinosis. A metallic implant frompossible spinal stimulator is visible on the x-rays. Mild peripheral calcifications within the artery distally at the knee on the lateral projection. Mild enthesopathy at the superior pole of the patella and quadriceps insertion. A fabella is in place at the posterior knee best visualized on the lateral projection. Mild generalized osteopenic bone quality. Assessment/Plan (1) Closed intertrochanteric fracture of right hip: Plan: 88 year old man status post mechanical fall from standing height with right intertrochanteric hip fracture - Discussion held with patient regarding the diagnosis and treatment options. At this time we have discussed nonoperative versus operative treatment options and have discussed the risks, benefits, alternatives, and potential complications of proposed treatment options. - Regarding nonoperative treatment, this would primarily consist of pain controland gentle mobilization to sit up in bed and perhaps to chair when pain control allows, along with incentive spirometry to decrease risk of pneumonia, anticoagulation and SCDs to decrease risk of blood clots, and a frequent turningschedule/ air mattress to decrease risk of bed sores and decubitus ulcers. - Regarding operative treatment, this would primarily consist of intramedullarynail fixation in order to allow earlier weight bearing and mobilization, along with further supportive measures of incentive spirometry, DVT prophylaxis, and decubitus ulcer prophylaxis. Surgical treatment does carry certain additional risks including but not limited to: infection, raquel-prosthetic fracture, and implant dislocation. In general, despite surgical treatment, patients can expect to go down one level of function (not increase level of function), meaning that if the patient was already a limited household ambulator, he may belargely bed bound (even despite surgical treatment). Hopefully, we may maintain the patient's current level of ambulatory status with operative treatment. - Regardless of nonoperative versus operative treatment, hip fractures in the elderly are associated with a relatively high morbidity and mortality rate, reaching upwards of 30% in hospital mortality rate for patients with dementia, in addition to medical comorbidities. - Patient has elected for surgical treatment with intramedullary nail at this time - Medical comorbidities and management per the medical team - Nutrition support - NPO at midnight for possible surgical treatment 04/29/2023 if medically risk stratified/ optimized. - NWB R LE in the interim - Balderas's traction R LE 5-10 lbs in the interim with overhead trapeze - Pain control in the interim - Incentive spirometry - DVT prophylaxis: SCDs in the interim. Patient will likely be on chemical prophylaxis post-operatively - Case management consult for post-operative placement - PT/OT post-operatively for mobilization and rehabilitation as able - Iron supplementation - Patient has sustained an osteoporotic fragility fracture at the [] hip, and would benefit from further evaluation and coordination for bone strengthening medications such as Forteo/ Tymlos to increase bony density and decrease the risk of future osteoporotic fragility fractures. In the interim, patient was counseled on bone healing protocol including smoking cessation/ avoidance of nicotine products, appropriate weight bearing restrictions and limitations, and vitamin supplementation to aid in bone and fracture healing/ strengthening. Patient was counseled to take: 1) Vitamin C 500 mg PO Q daily 2) Calcium 500-600 mg/ Vitamin D 200-400 Units PO Q TID - Will continue to follow Code(s): S72.141A - Displaced intertrochanteric fracture of right femur, initial encounter for closed fracture (2) Elevated troponin: Code(s): R79.89 - Other specified abnormal findings of blood chemistry (3) Diabetes: Code(s): E11.9 - Type 2 diabetes mellitus without complications Billing Billing Codes (IF APPLICABLE) List of Applicable Codes for [place] Documented By: Ashwini Conrad MD 04/28/23 184 0 Signed By: <Electronically signed by Ashwini Conrad MD> 04/28/23 1847 [facility] Work Phone: [phone] 844-398110-18-2023 History and physical note Author Sushant Cordon [facility] April 28, 2023 5:40pm Note Date/Time April 28, 2023 5 :40pm [facility] [address] [place] [address] Hospitalist H&P Signed Patient: Ashwini Vickers MR#: [id number] : 1935 Acct:[id number] Age/Sex: 88 / M Adm Date: 3 Loc: Room: [address] [place] [address] Type: ADM IN Attending Dr: Sushant Cordon DO Copies to: DO Marie Cooper DO~ HPI DATE OF EXAMINATION: 04/28/23 CHIEF COMPLAINT: right hip pain after a fall. HISTORY OF PRESENT ILLNESS: This is an extraordinarily pleasant 89-year-old man who had a mechanical fall today associated with hypoglycemia. In the emergency room he was found to have a right intertrochanteric hip fracture which is minimally displaced. Orthopedicsurgery with Dr. Conrad was consulted from the emergency room. The patient is an insulin requiring diabetic for the last 3 years or so. He wasfeeling dizzy. He notices blood glucose was 40. With this he did fall and landed on his right hip. After that he was able to get up. He ate some oatmeal. His blood sugars are better after that. In the emergency room the right intertrochanteric hip fracture was identified. As a secondary issue that was discovered by the emergency room was a troponin mildly elevated at 35.5. The patient has no history of cardiac disease. An initial EKG in the emergency room, technically of poor quality, did show markedST abnormality, possible inferior subendocardial injury. He reports over the last few days weeks that he has not been having any chest pain or pressure or any shortness of breath. He is not having any anginal type pain or any difficulty when he gets physical exertion. At baseline he remains a very physically active individual. He lives in a two- story house with stairs also down to the basement. 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 Helps do all of the lawn care in his yardalthough he has recently required a riding lawnmower. His main limitation to his physical activity seems to be diabetes and I suspect that he has been havingproblems with recurrent hypoglycemia that make him feel shaky so I think he is reluctant to get as much exercise as he is actually physically capable of. 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 in [facility] about 3 years ago. This was done due toprogressive weight loss. CT scans demonstrated a number of cysts on the pancreas. He says when the pancreas was surgically excised they did not find malignancy but he was told that he was basically sitting on a time bomb. He has been treating his diabetes with insulin and is pancreatic insufficiency withCreon. He also had what sounds like an EGD in [place] about 15 months ago with what sounds like some gastritis. Otherwise his past medical history seems to include prostate hypertrophy. Social history: He does smoke a cigar daily after dinner. In the past he smoked0.25 of a pack per day of cigarettes. He does drink wine daily with dinner. Heis mainly retired from [employer] here in [place]. He has continued to do other jobsever since his [employer]. Family history: A sister of an unspecified cancer. Another sibling ofwhat sounds like acute leukemia. Review of Systems Review of Systems Review of systems: 10 systems are reviewed and are negative except as mentioned elsewhere in the documentation. [facility] Medical History (Updated 10/18/23 @ 17:35 by Sushant Cordon DO) BPH (benign prostatic hyperplasia) Diabetes type 1 Surgical History (Updated 04/28/23 @ 17:34 by Sushant Cordon DO) History of pancreatectomy Family History (Updated 04/28/23 @ 16:16 by Vivian Munoz RN) Brother Cancer Son Sarcoma Social History Smoking Status: Current some day smoker Tobacco Type: cigars Substance Use Type: Alcohol Meds Medications and Allergies Allergies No Known Allergies Allergy (Verified 04/28/23 12:20) Home Medications insulin aspart U-100 100 unit/mL (3 mL) subcutaneous pen (Novolog FlexPen U-100 Insulin aspart) 5 unit subcut [id number] 04/28/23 [History Confirmed 04/28/23] insulin aspart U-100 100 unit/mL (3 mL) subcutaneous pen (Novolog FlexPen U-100 Insulin aspart) 8 unit subcut QACDINNER 04/28/23 [History Confirmed 04/28/23] insulin glargine 100 unit/mL (3 mL) subcutaneous pen (Lantus Solostar U-100 Insulin) 18 unit subcut HS 04/28/23 [History Confirmed 04/28/23] oxcaqi-iwbumxsz-csmfatk 24,000-76,000-120,000 unit capsule,delayed rel (Creon) 2cap PO TID 04/28/23 [History Confirmed 04/28/23] paroxetine HCl 30 mg tablet 30 mg PO DAILY 04/28/23 [History Confirmed 04/28/23] tamsulosin 0.4 mg capsule 0.4 mg PO DAILY 04/28/23 [History Confirmed 04/28/23] Exam Physical Exam Vital Signs: Temp Pulse Resp BP Pulse Ox O2 Del Method 97.2 F L 63 18 167/83 H 98 Room Air 04/28/23 13:34 04/28/23 16:32 04/28/23 16:24 04/28/23 16:24 04/28/23 16:24 04/28/23 16:24 Narrative: GEN: Awake, alert, oriented x 3. Head: Normal Cephalic, Atraumatic. Eyes: Conjunctiva and sclera clear bilaterally. Nose: External nose and nares normal bilaterally. Mouth: Lips and tongue normal. Neck: No JVD. No thyromegaly. No lymphadenopathy. Lungs: Clear to auscultation bilaterally, no wheezing, no crackles. Heart: Regular rate and rhythm, no murmurs, rubs, or gallops. Abdomen: Soft, normal bowel sounds, no rigidity, guarding, or acute peritoneal signs. Extremities: No swelling or cords in the calves bilaterally, no edema in the ankles bilaterally. Skin: No systemic rashes or lesions. Psychiatric: Calm. Conversant. Cooperative. Neuro: Awake, Alert, and Oriented x 3. No focal or lateralizing deficits. Results Lab Results Labs: Laboratory Last Values Corrected WBC 9.7 X10E3/uL (4.1-10.5) 04/28/23 13:20 Uncorrected WBC Count 9.7 x10E3/uL (4.1-10.5) 04/28/23 13:20 RBC 4.12 X10E6/uL (3.90-5.60) 04/28/23 13:20 Hgb 11.5 g/dL (13.0-17.0) L 04/28/23 13:20 Hct 34.8 % (38.8-50.0) L 04/28/23 13:20 MCV 84.3 fl (83.5-101) 04/28/23 13:20 MCH 28.0 pg (27.5-35.2) 04/28/23 13:20 MCHC 33.2 g/dL (32.5-35.6) 04/28/23 13:20 RDW 18.0 % (12.0-14.8) H 04/28/23 13:20 Plt Count 206 x10E3/uL (150-450) 04/28/23 13:20 MPV 9.3 fl (6.6-10.1) 04/28/23 13:20 Neut % (Auto) 75.0 % (.) 04/28/23 13:20 Lymph % (Auto) 14.8 % (.) 04/28/23 13:20 [place] % (Auto) 9.3 % (.) 04/28/23 13:20 Eos % (Auto) 0.5 % (.) 04/28/23 13:20 Baso % (Auto) 0.4 % (.) 04/28/23 13:20 Nucleat RBC Rel Count 0.1 /100 WBC (0-0.5) 04/28/23 13:20 Neut # (Auto) 7.3 x10E3/uL (1.8-7.7) 04/28/23 13:20 Lymph # (Auto) 1.4 x10E3/uL (1.00-4.8) 04/28/23 13:20 [place] # (Auto) 0.9 x10E3/uL (0.0-0.8) H 04/28/23 13:20 Eos # (Auto) 0.0 x10E3/uL (0.0-0.45) 04/28/23 13:20 Baso # (Auto) 0.0 x10E3/uL (0.0-0.2) 04/28/23 13:20 Monocyte Dist Width 18.61 % (0.00-20.00) 04/28/23 13:20 PT 11.8 Seconds (9.0-12.9) 04/28/23 13:20 INR 1.0 04/28/23 13:20 APTT 27.8 Seconds (25.1-36.5) 04/28/23 13:20 PHA Creatinine Clear 60.38 04/28/23 13:20 Sodium 136 mmol/L (136-145) 04/28/23 13:20 Potassium 4.9 mmol/L (3.5-5.1) 04/28/23 13:20 Chloride 101 mmol/L (98-107) 04/28/23 13:20 Carbon Dioxide 30.4 mmol/L (21.0-31.0) 04/28/23 13:20 Anion Gap 9.5 mEq/L (6.0-15.0) 04/28/23 13:20 BUN 15 mg/dL (7-25) 04/28/23 13:20 Creatinine 0.71 mg/dL (0.70-1.30) 04/28/23 13:20 Est GFR (CKD-EPI) > 60.0 mL/Min 04/28/23 13:20 Glucose 124 mg/dL (70-100) H 04/28/23 13:20 POC Glucose 137 mg/dl 04/28/23 16:24 Calcium 9.0 mg/dL (8.6-10.3) 04/28/23 13:20 Total Bilirubin 0.3 mg/dl (0.3-1.0) 04/28/23 13:20 AST 46 U/L (13-39) H 04/28/23 13:20 ALT 34 U/L (7-52) 04/28/23 13:20 Alkaline Phosphatase 108 U/L (34-104) H 04/28/23 13:20 Troponin I High Sens 38.3 pg/mL (0.0-20.0) H 04/28/23 16:30 B-Natriuretic Peptide 665.0 pg/mL (5-100) H 04/28/23 13:20 Total Protein 7.2 gm/dL (6.4-8.9) 04/28/23 13:20 Albumin 4.0 gm/dL (3.5-5.7) 04/28/23 13:20 Globulin 3.2 gm/dL 04/28/23 13:20 Albumin/Globulin Ratio 1.3 04/28/23 13:20 Urine Color Yellow (Yellow) 04/28/23 15:00 Urine Appearance Clear (Clear) 04/28/23 15:00 Urine pH 6.5 (5.0-9.0) 04/28/23 15:00 Ur Specific [place] 1.009 (1.001-1.030) 04/28/23 15:00 Urine Protein Negative mg/dL (Negative) 04/28/23 15:00 Urine Glucose (UA) Normal mg/dL (Normal) 04/28/23 15:00 Urine Ketones Negative (Negative) 04/28/23 15:00 Urine Occult Blood Negative (Negative) 04/28/23 15:00 Urine Nitrite Negative (Negative) 04/28/23 15:00 Urine Bilirubin Negative (Negative) 04/28/23 15:00 Urine Urobilinogen Normal mg/dL (Normal) 04/28/23 15:00 Ur Leukocyte Esterase Negative (Negative) 04/28/23 15:00 Assessment & Plan Assessment/Plan (1) Closed intertrochanteric fracture of right hip: (2) Elevated troponin: (3) Diabetes: Plan Assessment: Acute right intertrochanteric hip fracture. Episode of hypoglycemia today. Diabetes mellitus which is insulin requiring. History of pancreatectomy about 3 years ago. Elevated troponin. Discussion: The patient seems to have absolutely no chest pain or pressure or any dyspnea ordyspnea on exertion. He reports being able to carry out his usual activities ofdaily living without any symptoms that would be suggestive of coronary artery disease. He only became diabetic when he had the pancreatectomy a few years ago. Immediately after emergency room discussed his case with me in order to follow- up troponin. His troponin is gone from 35.5 up to 38.8. But he does have a B-type natriuretic peptide elevated at 665. I did order an echocardiogram but the echocardiogram video technician has likely gone home for the day. In my opinion the first EKG that was done the emergency room has too much background noise to be interpretable and should be ignored. A second EKG also had a lot of electrical noise and was read by the computer as atrial fibrillation but I think that that second EKG should be discarded as well. There is some RR interval changes but I think it is not diagnostic. Finally, a third EKG was done emergency room which has a waveform that is mostly readable. This does show normal sinus rhythm. He continues to have ST and T wave segmentsthat are mildly abnormal. T waves are inverted primarily in V3 through V5. Plan: Hospital admission, inpatient status. Patient may eat now. I have ordered a regular diet so that he can pick foods that are easy. While he is in bed rest and suffering from hip pain. A Kimble catheter was placed by the emergency room. N.p.o. after midnight for possible surgery tomorrow. Consult placed to cardiology. Await echocardiogram results. Cycle additional troponins tonight and tomorrow morning. For completeness and to reduce electrical interference I will ask for at least another EKG tonight and tomorrow morning. For his diabetes control his long-acting insulin should be reduced roughly by half so he can get 8 units of Lantus tonight. He can have sliding scale insulinlevel 2. He should have a blood sugar check at about 2 or 3 in the morning to make sure he does not become hypoglycemic. I will run IV fluids with D5 LR to help reduce the risk of hypoglycemia. I have ordered a hemoglobin A1c and fructosamine to evaluate his recent and 3-month glycemic control. He does have a mild anemia. I am ordering a type and screen and then iron labs and vitamin B12 labs to be done before surgery. IP vs OBS Justification Based on differential dx, clinical care plan, and risk of adverse events, if untreated, in my clinical judgement this patient requires an acute care setting as: INPATIENT because of an expectation of an over 2 midnight stay. Estimated length of stay (# of days): 5 Documented By: Sushant Cordon DO 1725 Signed By: <Electronically signed by Sushant Cordon, > 04/28/23 1740 [facility] Work Phone: [phone] 680-191806-29-2022 History of Present illness Narrative* Courtney Singh - 01/07/2022 12:25 PM EDT CLINICAL PHARMACY NOTE: MEDS TO BEDS Total # of Prescriptions Filled: 3 The following medications were delivered to the patient: Sucralfate susp Amlodipine Pantoprazole Additional Documentation: Pharmacy dispensed all we had of the Sucralfate susp- will transfer the rest to the [facility] in [place], [place] $8.61 collected via clover * Jose Roberto Peñaloza MD - 01/06/2022 8:56 AM EDT Images from the original note were not included. PROGRESS NOTE PATIENT NAME: Ashwini Vickers DATE: 01/06/2022 SURGEON: Dr Conn PRIMARY CARE PHYSICIAN: No primary care provider on file. 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 resting comfortably, pain controlled. Having bowel movements OBJECTIVE VITALS: Temp: Temp: 98.8 F (37.1 C)Temp Av.2 F (36.8 C) Min: 97.9 F (36.6 C) Max: 98.8 F (37.1 C) BP Systolic (24hrs), Av , Min:126 , Max:168 Diastolic (24hrs), Av, Min:65, Max:93 Pulse Pulse Av.6 Min: 64 Max: 71 Resp Resp Av.4 Min: 14 Max: 18 Pulse ox SpO2 Av.9 %Min: 94 % Max: 98 % CONSTITUTIONAL: awake, alert, cooperative, no apparent distress HEAD: atraumatic, normocephalic EYES: sclera clear, pupils equal and reactive to light ENT: ears are symmetric, nares patent HEENT: moist mucous membranes NECK: Supple, symmetrical, trachea midline LUNGS: no respiratory distress, no audible wheezing CARDIOVASCULAR: RRR ABDOMEN: soft, nondistended, appropriately tender, robotic incision sites clean dry and intact withglue in place, CHARISSA drain with minimal serous drainage MUSCULOSKELETAL: full range of motion noted SKIN: normal coloration and turgor I/O last 3 completed shifts: In: 3470.5 [I.V.:2624.9; IV Piggyback:845.6] Out: 2625 [Urine:2125; Emesis/NG output:200; Drains:300] Drain/tube output: In: - Out: 825 [Urine:525; Drains:300] LAB: CBC: Recent Labs 01/04/22 0149 01/05/22 0547 01/06/22 0429 WBC 21.4* 16.4* 13.3* HGB 12.0* 13.5 13.2 HCT 35.1* 38.9* 38.2* MCV 80.7* 77.3* 77.2* PLT 245 See Reflexed IPF Result See Reflexed IPF Result BMP: Recent Labs 01/05/22 0157 01/05/22 0547 01/06/22 0429 NA 135 134* 133* K 3.5* 3.4* 3.6* CL 99 98 99 CO2 25 24 23 BUN 15 14 11 CREATININE 0.57* 0.54* 0.50* GLUCOSE 129* 122* 149* COAGS: No results for input(s): APTT, PROT, INR in the last 72 hours. Viki Donovan DO 01/03/22, 8:56 AM Attestation signed by Jose Roberto Peñaloza MD I personally evaluated the patient and directed the medical decision making with Resident/ROSA afterthe physical/radiologic exam and laboratory values were reviewed and confirmed. UGI ok, slowly advance diet. Jose Roberto Peñaloza MD * Tj Kate, DO - 01/06/2022 7:30 AM EDT Bariatric Surgery: Daily Progress Note PATIENT NAME: Ashwini Vickers TODAY'S DATE: 01/06/2022, 7:30 AM CC: doing well SUBJECTIVE: Pt seen and examined at bedside, no acute events overnight. Reports good pain control. NG came out,started on Clears. Denies nausea or emesis. Having bowel function. OBJECTIVE: VITALS: BP 138/65 Pulse 66 Temp 98.8 F (37.1 C) (Temporal) Resp 16 Ht 5' 10 (1.778 m) Wt145 lb 1 oz (65.8 kg) SpO2 96% BMI 20.81 kg/m INTAKE/OUTPUT: Intake/Output Summary (Last 24 hours) at 01/06/2022 0730 Last data filed at 01/06/2022 0210 Gross per 24 hour Intake Output 825 ml Net -825 ml PHYSICAL EXAM: General Appearance: awake, alert, oriented, in no acute distress HEENT: Normocephalic, atraumatic, mucus membranes moist Heart: Regular rate and rhythm Lungs: Normal expansion. Clear to auscultation. No rales, rhonchi, or wheezing. Abdomen: Soft, mildly tender to palpation, CHARISSA drain in RUQ w/ serous output, incisions clean, dry and intact with dermabond glue Extremities: No cyanosis, pitting edema, rashes noted. Skin: Skin color, texture, turgor normal. No rashes or lesions. Data: CBC with Differential: Lab Results Component Value Date WBC 13.3 01/06/2022 RBC 4.95 01/06/2022 HGB 13.2 01/06/2022 HCT 38.2 01/06/2022 PLT See Reflexed IPF Result 01/06/2022 MCV 77.2 01/06/2022 MCH 26.7 01/06/2022 MCHC 34.6 01/06/2022 RDW 18.4 01/06/2022 LYMPHOPCT 6 01/06/2022 MONOPCT 9 01/06/2022 BASOPCT 0 01/06/2022 MONOSABS 1.14 01/06/2022 LYMPHSABS 0.82 01/06/2022 EOSABS 0.09 01/06/2022 BASOSABS 0.03 01/06/2022 BMP: Lab Results Component Value Date NA 133 01/06/2022 K 3.6 01/06/2022 CL 99 01/06/2022 CO2 23 01/06/2022 BUN 11 01/06/2022 LABALBU 3.6 01/02/2022 CREATININE 0.50 01/06/2022 CALCIUM 7.7 01/06/2022 GFRAA >60 01/06/2022 LABGLOM >60 01/06/2022 GLUCOSE 149 01/06/2022 ASSESSMENT: Active Hospital Problems Diagnosis Date Noted Perforated viscus [R19.8] 01/02/2022 Priority: Medium Absence of pancreas, 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 86 y.o. male s/p duodenal perforation repair 01/03 Plan: 1. Continue MMT for pain 2. Would recommend CLD x3 days then FLD x3 days 3. Upper GI negative for leak 4. Continue home insulin pump 5. Continue medical management per trauma team 6. MIS to sign off please call back with any further questions * Cyrus Iglesias - 01/06/2022 6:58 AM EDT Patient checks his blood sugar with his own device. * Tj Kate DO - 01/05/2022 7:15 AM EDT Bariatric Surgery: Daily Progress Note PATIENT NAME: Ashwini Vickers TODAY'S DATE: 01/05/2022, 7:15 AM CC: doing well SUBJECTIVE: Pt seen and examined at bedside, no acute events overnight. Reports good pain control. States he isfeeling very hungry. Denies nausea or emesis. Passing some flatus. Voiding appropriately. OBJECTIVE: VITALS: BP (!) 169/74 Pulse 70 Temp 98.3 F (36.8 C) (Temporal) Resp 21 Ht 5' 10 (1.778 m) Wt 145 lb 1 oz (65.8 kg) SpO2 99% BMI 20.81 kg/m INTAKE/OUTPUT: Intake/Output Summary (Last 24 hours) at 01/05/2022 0715 Last data filed at 01/05/2022 0400 Gross per 24 hour Intake 3470.47 ml Output 3125 ml Net 345.47 ml PHYSICAL EXAM: General Appearance: awake, alert, oriented, in no acute distress HEENT: Normocephalic, atraumatic, mucus membranes moist NGT in place Heart: Heart sounds are normal. Regular rate and rhythm without murmur, gallop or rub. Lungs: Normal expansion. Clear to auscultation. No rales, rhonchi, or wheezing. Abdomen: Soft, mildly tender to palpation, CHARISSA drain in RUQ w/ serous output, incisions clean, dry and intact with dermabond glue Extremities: No cyanosis, pitting edema, rashes noted. Skin: Skin color, texture, turgor normal. No rashes or lesions. Data: CBC with Differential: Lab Results Component Value Date WBC 16.4 01/05/2022 RBC 5.03 01/05/2022 HGB 13.5 01/05/2022 HCT 38.9 01/05/2022 PLT See Reflexed IPF Result 01/05/2022 MCV 77.3 01/05/2022 MCH 26.8 01/05/2022 MCHC 34.7 01/05/2022 RDW 18.6 01/05/2022 LYMPHOPCT 6 01/05/2022 MONOPCT 6 01/05/2022 BASOPCT 0 01/05/2022 MONOSABS 0.97 01/05/2022 LYMPHSABS 0.96 01/05/2022 EOSABS 0.11 01/05/2022 BASOSABS 0.04 01/05/2022 BMP: Lab Results Component Value Date NA 134 01/05/2022 K 3.4 01/05/2022 CL 98 01/05/2022 CO2 24 01/05/2022 BUN 14 01/05/2022 LABALBU 3.6 01/02/2022 CREATININE 0.54 01/05/2022 CALCIUM 8.1 01/05/2022 GFRAA >60 01/05/2022 LABGLOM >60 01/05/2022 GLUCOSE 122 01/05/2022 ASSESSMENT: Active Hospital Problems Diagnosis Date Noted Perforated viscus [R19.8] 01/02/2022 Priority: Medium Absence of pancreas, 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 86 y.o. male s/p duodenal perforation repair 01/03 Plan: 1. Continue MMT for pain 2. Continue NPO with NG tube to suction 3. Upper GI study today 4. Continue home insulin pump 5. Continue medical management per trauma team * Cyrus Iglesias - 01/05/2022 6:48 AM EDT Patient checks his blood sugar with his own device. * Jose Roberto Peñaloza MD - 01/04/2022 7:41 AM EDT Images from the original note were not included. PROGRESS NOTE PATIENT NAME: Ashwini Vickers DATE: 01/04/2022 SURGEON: Dr Conn PRIMARY CARE PHYSICIAN: No primary care provider on file. 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 Robaxin, fentanyl 50-100 q3 prn 2. Tele 1. htn to 180 systolic this am 1. Prn hydralazine 2. reconcile home meds 3. Pulm toilet 4. NPO, NG to LIS, 50 cc dark bilious in canister this am 5. Contrast study at 72 hours post op 6. Protonix/carfate 7. Zosyn, 4 days post op 8. IVF at maintenance 9. UO 0.3 cc/kg/hr 10. home pump insulin 11. PT/OT SUBJECTIVE sAhwini Vickers seen and examined at bedside. AF, htn to 180s this am. Asymptomatic, resting comfortably, pain controlled. Voided after kimble removal. OBJECTIVE VITALS: Temp: Temp: 98.8 F (37.1 C)Temp Av.5 F (36.9 C) Min: 97.9 F (36.6 C) Max: 98.8 F (37.1C) BP Systolic (24hrs), Av , Min:150 , Max:181 Diastolic (24hrs), Av, Min:81, Max:97 Pulse Pulse Av.1 Min: 54 Max: 72 Resp Resp Av.3 Min: 11 Max: 23 Pulse ox SpO2 Av % Min: 92 % Max: 96 % CONSTITUTIONAL: awake, alert, cooperative, no apparent distress HEAD: atraumatic, normocephalic EYES: sclera clear, pupils equal and reactive to light ENT: ears are symmetric, nares patent HEENT: moist mucous membranes NECK: Supple, symmetrical, trachea midline LUNGS: no respiratory distress, no audible wheezing CARDIOVASCULAR: RRR ABDOMEN: soft, nondistended, appropriately tender, robotic incision sites clean dry and intact withglue in place, CHARISSA drain with minimal serous drainage MUSCULOSKELETAL: full range of motion noted SKIN: normal coloration and turgor I/O last 3 completed shifts: In: 4637.9 [I.V.:4086.2; IV Piggyback:551.7] Out: 1630 [Urine:1200; Drains:405; Blood:25] Drain/tube output: In: 2680.4 [I.V.:2329.1] Out: 695 [Urine:500; Drains:195] LAB: CBC: Recent Labs 01/02/22 1857 01/03/22 0627 01/04/22 0149 WBC 20.5* 22.1* 21.4* HGB 12.9* 12.2* 12.0* HCT 38.9* 37.4* 35.1* MCV 81.2* 82.4* 80.7* PLT 324 292 245 BMP: Recent Labs 01/03/22 1436 01/03/22 2059 01/04/22 0150 NA 136 135 136 K 3.9 4.2 4.5 CL 103 102 104 CO2 21 21 21 BUN 28* 29* 29* CREATININE 0.93 0.88 0.83 GLUCOSE 155* 74 71 COAGS: Recent Labs 01/02/22 1857 PROT 6.4 INR 1.2 Viki Donovan, 01/03/22, 7:41 AM Attestation signed by Jose Roberto Peñaloza MD I personally evaluated the patient and directed the medical decision making with Resident/ROSA afterthe physical/radiologic exam and laboratory values were reviewed and confirmed. UGI in am. Jose Roberto Peñaloza MD * Mercedes Davis, DO - 01/04/2022 7:29 AM EDT Bariatric Surgery: Daily Progress Note PATIENT NAME: Ashwini Vickers TODAY'S DATE: 01/04/2022, 7:29 AM CC: feeling better SUBJECTIVE: Pt seen and examined at bedside. Vital signs are normal and pt reports his pain is well controlled.CHARISSA drain had 85 out overnight. Denies passing flatus or having bowel movements yet but says he can feel some rumbles. OBJECTIVE: VITALS: BP (!) 181/96 Pulse 63 Temp 98.8 F (37.1 C) (Oral) Resp 13 Ht 5' 10 (1.778 m) Wt145 lb 1 oz (65.8 kg) SpO2 92% BMI 20.81 kg/m INTAKE/OUTPUT: Intake/Output Summary (Last 24 hours) at 01/04/2022 0729 Last data filed at 01/04/2022 0500 Gross per 24 hour Intake 2680.4 ml Output 695 ml Net 1985.4 ml PHYSICAL EXAM: General Appearance: awake, alert, oriented, in no acute distress HEENT: Normocephalic, atraumatic, mucus membranes moist NGT in place Heart: Heart sounds are normal. Regular rate and rhythm without murmur, gallop or rub. Lungs: Normal expansion. Clear to auscultation. No rales, rhonchi, or wheezing. Abdomen: Soft, mildly tender to palpation, CHARISSA drain in RUQ, incisions clean, dry and intact with dermabond glue Extremities: No cyanosis, pitting edema, rashes noted. Skin: Skin color, texture, turgor normal. No rashes or lesions. Data: CBC with Differential: Lab Results Component Value Date WBC 21.4 01/04/2022 RBC 4.35 01/04/2022 HGB 12.0 01/04/2022 HCT 35.1 01/04/2022 PLT 245 01/04/2022 MCV 80.7 01/04/2022 MCH 27.6 01/04/2022 MCHC 34.2 01/04/2022 RDW 19.0 01/04/2022 LYMPHOPCT 4 01/04/2022 MONOPCT 6 01/04/2022 BASOPCT 0 01/04/2022 MONOSABS 1.33 01/04/2022 LYMPHSABS 0.89 01/04/2022 EOSABS <0.03 01/04/2022 BASOSABS 0.04 01/04/2022 BMP: Lab Results Component Value Date NA 136 01/04/2022 K 4.5 01/04/2022 CL 104 01/04/2022 CO2 21 01/04/2022 BUN 29 01/04/2022 LABALBU 3.6 01/02/2022 CREATININE 0.83 01/04/2022 CALCIUM 8.3 01/04/2022 GFRAA >60 01/04/2022 LABGLOM >60 01/04/2022 GLUCOSE 71 01/04/2022 ASSESSMENT: Active Hospital Problems Diagnosis Date Noted Perforated viscus [R19.8] 01/02/2022 Priority: Medium Absence of pancreas, 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 86 y.o. male s/p gastric perforation repair 01/03 Plan: 1. Continue MMT for pain 2. Continue NPO with NG tube to suction 3. Contrast study tomorrow 4. Continue home insulin pump 5. Continue medical management per trauma team * Judi Ye, OT - 01/03/2022 3:25 PM EDT Occupational Therapy Facility/Department: [address] Occupational Therapy Initial Assessment Name: Ashwini Vickers : 1935 Date of Service: 01/03/2022 Chief Complaint Patient presents with Abdominal Pain ulcer Discharge Recommendations: Patient would benefit from continued therapy after discharge OT Equipment Recommendations Equipment Needed: Yes Mobility Devices: ADL Assistive Devices ADL Assistive Devices: Compressor Mechanic Bus;Long-handled Sponge;Long-handled Shoe Horn;Sock- Aid Hard;Grab Bars -shower Patient Diagnosis(es): The primary encounter diagnosis was Acute gastric ulcer with perforation (HCC). A diagnosis of Gastric perforation (HCC) was also pertinent to this visit. Past Medical History: has no past medical history on file. Past Surgical History: has a past surgical history that includes Esophagogastroduodenoscopy (01/02/2022) and Stomach surgery (01/02/2022). Assessment Performance deficits / Impairments: Decreased functional mobility ;Decreased ADL status;Decreased cognition;Decreased endurance;Decreased high-level IADLs;Decreased balance Assessment: Pt demonstrated supine to sit transfer EOB with SBA, functional sit<>stand transfers with CGA and functional mobility with CGA. Limited by requiring to keep NG to suction. Required Max A to don B socks d/t pain. Pt is expected to require skilled OT services during their acute hospitalization stay to address the above noted deficits through skilled occupational therapy intervention for promotion of increased independence throughout ADLs, IADLs and functional mobility tasks. Prognosis: Good Decision Making: Medium Complexity REQUIRES OT FOLLOW-UP: Yes Activity Tolerance Activity Tolerance: Patient Tolerated treatment well Plan Plan Times per Week: 2-3x/wk Current Treatment Recommendations: Functional mobility training,Balance training,Endurance training,Safety education & training,Patient/Caregiver education & training,Equipment evaluation, education, & procurement,Self-Care / ADL,Home management training,Cognitive/Perceptual training Restrictions Restrictions/Precautions Restrictions/Precautions: General Precautions,Fall Risk Required Braces or Orthoses?: No Position Activity Restriction Other position/activity restrictions: up with assist. s/p gastric perforation repair 01/03; NG to suction Subjective General Patient assessed for rehabilitation services?: Yes Family / Caregiver Present: No General Comment Comments: RN ok'd for OT/PT eval this AM. Pt agreeable to session, pleasent/cooperative throughout.Pt reports general discomfort in abdomen. Social/Functional History Social/Functional History Lives With: Spouse,Son (19 year old grandson w/ special needs per pt. States he is pretty IND.) Type of Home: House Home Layout: Two level,Performs ADL's on one level,Able to Live on Main level with bedroom/bathroom,Bed/Bath upstairs,1/2 bath on main level Home Access: Ramped entrance,Stairs to enter without rails (L side rail by ramp) Entrance Stairs - Number of Steps: 2 Bathroom Shower/Tub: Tub/Shower unit Bathroom Toilet: Standard Bathroom Equipment: Shower chair Home Equipment: (Does not use AD at baseline or own any equiptment.) Has the patient had two or more falls in the past year or any fall with injury in the past year?: No ADL Assistance: Independent Homemaking Assistance: Independent Homemaking Responsibilities: Yes (Completing all homemaking tasks currently d/t post sx) Meal Prep Responsibility: Primary Laundry Responsibility: Primary Cleaning Responsibility: Primary Shopping Responsibility: Primary Ambulation Assistance: Independent Transfer Assistance: Independent 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 Works on [employer] sometimes now debo wants. [employer]. Use to work for [employer]. Leisure & Hobbies: Golfing Additional Comments: 3-4 weeks post open heart surgery. Pt completes homemaking tasks and assists w/ showering. Objective Vision Exceptions: Wears glasses for reading Hearing: Exceptions to WFL Hearing Exceptions: Hard of hearing/hearing concerns;Bilateral hearing aid Safety Devices Type of Devices: Call light within reach;Nurse notified;Gait belt;Left in chair;All fall risk precautions in place;Patient at risk for falls Restraints Restraints Initially in Place: No Balance Sitting: (Seated EOB unsupported for ROM/MMT, mobility prep, LB dressing, SBA) Standing: (Statically standing EOB for ~ 1 minute with CGA and RW) Gait Overall Level of Assistance: Contact-guard assistance (Completed functional mobility EOB->bedside chair with CGA and RW. No LOB, slightly limited by pain. Limited to further mobility d/t NG required to stay hooked to suction.) AROM: Within functional limits Strength: Within functional limits (Grossly 4/5 BUEs) Coordination: Within functional limits Tone: Normal Sensation: Intact ADL Feeding: Independent Grooming: Independent UE Bathing: Stand by assistance LE Bathing: Minimal assistance;Verbal cueing;Setup;Increased time to complete UE Dressing: Stand by assistance UE Dressing Skilled Clinical Factors: Donne gown around back with SBA, required assist for lines only LE Dressing: Maximum assistance;Increased time to complete LE Dressing Skilled Clinical Factors: Assist to don B socks EOB d/t decreased tolerance bending d/tabdominal pain. Able to reach forward into flexion to adjust and pull socks up. Toileting: Minimal assistance;Increased time to complete Activity Tolerance Activity Tolerance: Patient tolerated treatment well Bed mobility Supine to Sit: Stand by assistance Sit to Supine: (Retired to bedside chair upon conclusion of session) Scooting: Contact guard assistance Bed Mobility Comments: HOB raised ~45deg Transfers Sit to stand: Contact guard assistance Stand to sit: Contact guard assistance Transfer Comments: RW Cognition Overall Cognitive Status: WFL Education Given To: Patient Education Provided: Role of Therapy;Transfer Training;Equipment;Plan of Care;ADL Adaptive Strategies;Fall Prevention Strategies;Energy Conservation Education Method: Demonstration;Verbal Barriers to Learning: None Education Outcome: Verbalized understanding;Demonstrated understanding LUE AROM (degrees) LUE AROM : WFL Left Hand AROM (degrees) Left Hand AROM: WFL RUE AROM (degrees) RUE AROM : WFL Right Hand AROM (degrees) Right Hand AROM: WFL Hand Dominance Hand Dominance: Right AM-PAC Score AM-PAC Inpatient Daily Activity Raw Score: 19 (01/03/22 1525) AM-PAC Inpatient ADL T-Scale Score : 40.22 (01/03/22 1525) ADL Inpatient CMS 0-100% Score: 42.8 (01/03/22 1525) ADL Inpatient CMS G-Code Modifier : CK (01/03/22 1525) Goals Short Term Goals Time Frame for Short term goals: By discharge, pt will: Short Term Goal 1: Demo functional sit<>stand tranfers and functional mobility with SUP and LRD PRN Short Term Goal 2: Demo 8 minutes of dynamic standing balance with SBA to promote increased independence throughout ADLs Short Term Goal 3: Demo UB ADLs with Mod IND Short Term Goal 4: Demo LB bathing/toileting with SBA Short Term Goal 5: Demo LB dressing with Min A use of AE PRN Therapy Time Individual Concurrent Group Co-treatment Time In 1137 Time Out 1210 Minutes 33 Timed Code Treatment Minutes: 8 Minutes Judi Ye OTR/L * Ino Sylvester, PT - 01/03/2022 12:40 PM EDT Physical Therapy Facility/Department: [address] [facility] Physical Therapy Initial Assessment Name: Ashwini Vickers : 1935 Date of Service: 01/03/2022 Chief Complaint Patient presents with Abdominal Pain ulcer Discharge Recommendations: Further therapy recommended at discharge. PT Equipment Recommendations Other: CTA, RW used at this time. Patient Diagnosis(es): The primary encounter diagnosis was Acute gastric ulcer with perforation (HCC). A diagnosis of Gastric perforation (HCC) was also pertinent to this visit. Past Medical History: has no past medical history on file. Past Surgical History: has a past surgical history that includes Esophagogastroduodenoscopy (01/02/2022) and Stomach surgery (01/02/2022). Assessment Body Structures, Functions, Activity Limitations Requiring Skilled Therapeutic Intervention: Decreased functional mobility ;Increased pain;Decreased balance Assessment: Pt grossly CGA for mobility, amb 6' RW CGA. Pt would benefit from continued acute PT toaddress deficits. Therapy Prognosis: Good Decision Making: Medium Complexity Requires PT Follow-Up: Yes Activity Tolerance Activity Tolerance: Patient tolerated treatment well Plan Plan Plan: (5-6x/wk) Current Treatment Recommendations: Strengthening,Balance training,Functional mobility training,Gaittraining,Stair training,Endurance training,Home exercise program,Safety education & training,Patient/Caregiver education & training,Equipment evaluation, education, & procurement Safety Devices Type of Devices: Call light within reach,Nurse notified,Gait belt,Left in chair,All fall risk precautions in place,Patient at risk for falls Restraints Restraints Initially in Place: No Restrictions Restrictions/Precautions Restrictions/Precautions: General Precautions,Fall Risk Required Braces or Orthoses?: No Position Activity Restriction Other position/activity restrictions: up with assist. s/p gastric perforation repair 01/03 Subjective General Chart Reviewed: Yes Patient assessed for rehabilitation services?: Yes Response To Previous Treatment: Not applicable Family / Caregiver Present: No Follows Commands: Within Functional Limits General Comment Comments: RN and pt agreeeable to PT. Pt alert in bed upon arrival. OT co-eval Subjective Subjective: Pt reports 2/10 abd pain, denies any numbness or tingling. Social/Functional History Social/Functional History Lives With: Spouse,Son (19 year old grandson w/ special needs per pt. States he is pretty IND.) Type of Home: House Home Layout: Two level,Performs ADL's on one level,Able to Live on Main level with bedroom/bathroom,Bed/Bath upstairs,1/2 bath on main level Home Access: Ramped entrance,Stairs to enter without rails (L side rail by ramp) Entrance Stairs - Number of Steps: 2 Bathroom Shower/Tub: Tub/Shower unit Bathroom Toilet: Standard Bathroom Equipment: Shower chair Home Equipment: (Does not use AD at baseline or own any equiptment.) Has the patient had two or more falls in the past year or any fall with injury in the past year?: No ADL Assistance: Independent Homemaking Assistance: Independent Homemaking Responsibilities: Yes (Completing all homemaking tasks currently d/t post sx) Meal Prep Responsibility: Primary Laundry Responsibility: Primary Cleaning Responsibility: Primary Shopping Responsibility: Primary Ambulation Assistance: Independent Transfer Assistance: Independent 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 Leisure & Hobbies: Golfing Additional Comments: 3-4 weeks post open heart surgery. Pt completes homemaking tasks and assists w/ showering. Vision/Hearing Vision Vision: Impaired Vision Exceptions: Wears glasses for reading Hearing Hearing: Exceptions to WFL Hearing Exceptions: Hard of hearing/hearing concerns;Bilateral hearing aid Cognition Orientation Overall Orientation Status: Within Functional Limits Cognition Overall Cognitive Status: WFL Objective AROM RLE (degrees) RLE AROM: WFL AROM LLE (degrees) LLE AROM : WFL AROM RUE (degrees) RUE AROM : WFL AROM LUE (degrees) LUE AROM : WFL Strength RLE Strength RLE: WFL Strength LLE Strength LLE: WFL Strength RUE Strength RUE: WFL Comment: antigravity observed, see OT Strength LUE Strength LUE: WFL Comment: antigravity observed, see OT Bed mobility Supine to Sit: Stand by assistance Sit to Supine: (left in chair) Scooting: Contact guard assistance Bed Mobility Comments: HOB raised ~45deg Transfers Sit to Stand: Contact guard assistance Stand to sit: Contact guard assistance Ambulation Surface: level tile Device: Rolling Walker Assistance: Contact guard assistance Quality of Gait: minorly slowed sam, no LOB or buckling, reciprocal, good weight shifts Distance: 6' to chair Comments: NG to suction More Ambulation?: No Stairs/Curb Stairs?: No Balance Posture: Fair Sitting - Static: Good Sitting - Dynamic: Good Standing - Static: Good;- Standing - Dynamic: Fair;+ Comments: RW used while assessing standing balance Exercise Treatment: EOB ~11min, CGA to SBA. dynamic activities AM-PAC Score AM-PAC Inpatient Mobility Raw Score : 18 (01/03/22 123) AM-PAC Inpatient T-Scale Score : 43.63 (01/03/22 123) Mobility Inpatient CMS 0-100% Score: 46.58 (01/03/22 123) Mobility Inpatient CMS G-Code Modifier : CK (01/03/221238) Goals Short Term Goals Time Frame for Short term goals: 14 visits Short term goal 1: Pt will be [place] bed mobility Short term goal 2: Pt will be lAma transfers Short term goal 3: Pt will be [place] amb 250' RW or least restrictive AD Short term goal 4: Pt will navigate 3 steps [place] Education Patient Education Education Given To: Patient Education Provided: Role of Therapy;Plan of Care Education Method: Demonstration;Verbal Barriers to Learning: None Education Outcome: Verbalized understanding;Demonstrated understanding Therapy Time Individual Concurrent Group Co-treatment Time In 1138 Time Out 1210 Minutes 32 Timed Code Treatment Minutes: 23 Minutes Ino Sylvester PT * Mercedes Davis, DO - 01/03/2022 8:06 AM EDT Bariatric Surgery: Daily Progress Note PATIENT NAME: Ashwini Vickers TODAY'S DATE: 01/03/2022, 8:06 AM CC: feeling better SUBJECTIVE: Pt seen and examined at bedside. Vital signs are normal and pt reports his pain is well controlled.CHARISSA drain had 210 out overnight. Denies passing flatus or having bowel movements yet. OBJECTIVE: VITALS: BP (!) 150/86 Pulse 72 Temp 98.5 F (36.9 C) (Oral) Resp 22 Ht 5' 10 (1.778 m) Wt145 lb 1 oz (65.8 kg) SpO2 95% BMI 20.81 kg/m INTAKE/OUTPUT: Intake/Output Summary (Last 24 hours) at 01/03/2022 0806 Last data filed at 01/03/2022 0415 Gross per 24 hour Intake 1957.54 ml Output 935 ml Net 1022.54 ml PHYSICAL EXAM: General Appearance: awake, alert, oriented, in no acute distress HEENT: Normocephalic, atraumatic, mucus membranes moist NGT in place Heart: Heart sounds are normal. Regular rate and rhythm without murmur, gallop or rub. Lungs: Normal expansion. Clear to auscultation. No rales, rhonchi, or wheezing. Abdomen: Soft, mildly tender to palpation, CHARISSA drain in RUQ, incisions clean, dry and intact with dermabond glue Extremities: No cyanosis, pitting edema, rashes noted. Skin: Skin color, texture, turgor normal. No rashes or lesions. Data: CBC with Differential: Lab Results Component Value Date WBC 22.1 01/03/2022 RBC 4.54 01/03/2022 HGB 12.2 01/03/2022 HCT 37.4 01/03/2022 PLT 292 01/03/2022 MCV 82.4 01/03/2022 MCH 26.9 01/03/2022 MCHC 32.6 01/03/2022 RDW 18.9 01/03/2022 LYMPHOPCT PENDING 01/03/2022 MONOPCT PENDING 01/03/2022 BASOPCT PENDING 01/03/2022 MONOSABS PENDING 01/03/2022 LYMPHSABS PENDING 01/03/2022 EOSABS PENDING 01/03/2022 BASOSABS PENDING 01/03/2022 BMP: Lab Results Component Value Date NA 138 01/03/2022 K 4.5 01/03/2022 CL 104 01/03/2022 CO2 21 01/03/2022 BUN 21 01/03/2022 LABALBU 3.6 01/02/2022 CREATININE 0.84 01/03/2022 CALCIUM 8.4 01/03/2022 GFRAA >60 01/03/2022 LABGLOM >60 01/03/2022 GLUCOSE 176 01/03/2022 ASSESSMENT: Active Hospital Problems Diagnosis Date Noted Perforated viscus [R19.8] 01/02/2022 Priority: Medium Absence of pancreas, 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 86 y.o. male s/p gastric perforation repair 01/03 Plan: 1. Continue MMT for pain 2. Continue NPO with NG tube to suction 3. Contrast study on Wednesday 4. Continue insulin gtt 5. Continue medical management per trauma team * Jose Roberto Peñaloza MD - 01/03/2022 7:50 AM EDT Images from the original note were not included. PROGRESS NOTE PATIENT NAME: Ashwini Vickers DATE: 01/03/2022 SURGEON: Dr Conn PRIMARY CARE PHYSICIAN: No primary care provider on file. 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 Vital signs stable. Afebrile. Pain is controlled. Urineoutput adequate 0.9 cc per cake per hour. CHARISSA drain with 210 cc of serous output OBJECTIVE VITALS: Temp: Temp: 97.7 F (36.5 C)Temp Av F (36.7 C) Min: 97.7 F (36.5 C) Max: 98.4 F (36.9 C) BP Systolic (24hrs), Av , Min:131 , Max:152 Diastolic (24hrs), Av, Min:68, Max:78 Pulse Pulse Av.3 Min: 57 Max: 77 Resp Resp Av.1 Min: 11 Max: 16 Pulse ox SpO2 Av.9 %Min: 94 % Max: 99 % CONSTITUTIONAL: awake, alert, cooperative, no apparent distress HEAD: atraumatic, normocephalic EYES: sclera clear, pupils equal and reactive to light ENT: ears are symmetric, nares patent HEENT: moist mucous membranes NECK: Supple, symmetrical, trachea midline LUNGS: no respiratory distress, no audible wheezing CARDIOVASCULAR: RRR ABDOMEN: soft, nondistended, appropriately tender, robotic incision sites clean dry and intact withglue in place, CHARISSA drain with minimal serous drainage MUSCULOSKELETAL: full range of motion noted SKIN: normal coloration and turgor I/O last 3 completed shifts: In: 1956.5 [I.V.:1757.1; IV Piggyback:200.5] Out: 935 [Urine:700; Drains:210; Blood:25] Drain/tube output: In: 1957.5 [I.V.:1757.1] Out: 935 [Urine:700; Drains:210] LAB: CBC: Recent Labs 01/02/22 1857 01/03/22 0627 WBC 20.5* 22.1* HGB 12.9* 12.2* HCT 38.9* 37.4* MCV 81.2* 82.4* PLT 324 292 BMP: Recent Labs 01/02/22 1857 01/03/22 0155 01/03/22 0627 NA 130* 136 138 K 4.1 4.6 4.5 CL 96* 105 104 CO2 22 25 21 BUN 19 18 21 CREATININE 0.81 0.75 0.84 GLUCOSE 452* 81 176* COAGS: Recent Labs 01/02/221856 PROT 6.4 INR 1.2 Breana Johnson MD 01/03/22, 7:51 AM Attestation signed by Jose Roberto Peñaloza MD I personally evaluated the patient and directed the medical decision making with Resident/ROSA afterthe physical/radiologic exam and laboratory values were reviewed and confirmed. Feeling better, to bring in insulin pump. Jose Roberto Peñaloza MD * Queta Geiger RN - 01/03/2022 12:19 AM EDT Assessment forms from [place] note that pt stated he has bed bugs at home and although they have treated the house, they have not been able to get rid of them. Pt did not have any belongings transferred with him from the OR. documented in this encounterB[facility] WESTWish Days [facility] [employer] Work Phone: consult note Author Tru Briceno [facility] May 03, 2023 3:17pm Note Date/Time May 03, 2023 2 :59pm [facility] [address] [place] [address] Physiatry (Rehab) Consult Note Signed Patient: Ashwini Vickers MR#: [id number] : 1935 Acct:[id number] Age/Sex: 88 / M Adm Date: 3 Loc: 4N Room: [address] [place] [address] Type: ADM IN Attending Dr: Humberto Diaz MD Copies to: Tru JanakMD Humberto elkins MD Robert J Vaschak, DO~ Etiologic Dx/Impairment Group Narrative Narrative: 02.19 HPI Consult Date: 05/03/23 Requesting Physician: Humberto Diaz MD Primary Care Provider: Marie Castro DO Consult Narrative Reason for consult: hip fracture s/p TFN HPI: Mr. Vickers is a 88 year old male with past medical history as below presenting with multifactorial functional decline after right hip fracture status post TFN. He is postop day #3 status post ORIF with short IMN for right traumatic intertrochanteric hip fracture. Required cardiac clearance pre-op. EF 40%, noted significant 2 vessel CAD. Plan is for outpatient PCI in 6 weeks. Today feels well. Working with PT/OT. Not at premorbid baseline. Review of Systems Review of Systems All other systems reviewed & are negative unless noted below or in HPI [facility] Medical History BPH (benign prostatic hyperplasia) Diabetes type 1 Surgical History History of pancreatectomy Family History Brother Cancer Son Sarcoma Social History Smoking Status: Current some day smoker Tobacco Type: cigars Substance Use Type: Alcohol Meds Medications and Allergies Allergies No Known Allergies Allergy (Verified 04/28/23 12:20) Home Medications insulin aspart U-100 100 unit/mL (3 mL) subcutaneous pen (Novolog FlexPen U-100 Insulin aspart) 5 unit subcut BID.PC.BKFAST.LUNCH 04/28/23 [History Confirmed 04/28/23] insulin aspart U-100 100 unit/mL (3 mL) subcutaneous pen (Novolog FlexPen U-100 Insulin aspart) 8 unit subcut QACDINNER 04/28/23 [History Confirmed 04/28/23] insulin glargine 100 unit/mL (3 mL) subcutaneous pen (Lantus Solostar U-100 Insulin) 18 unit subcut HS 04/28/23 [History Confirmed 04/28/23] [id number] 24,000-76,000-120,000 unit capsule,delayed rel (Creon) 2cap PO TID 04/28/23 [History Confirmed 04/28/23] paroxetine HCl 30 mg tablet 30 mg PO DAILY 04/28/23 [History Confirmed 04/28/23] tamsulosin 0.4 mg capsule 0.4 mg PO DAILY 04/28/23 [History Confirmed 04/28/23] acetaminophen 325 mg tablet (Tylenol) 650 mg PO Q4H PRN Pain Scale 1 - 3 or fever #0 tabs 05/03/23 [Rx] acetaminophen 500 mg tablet 500 mg PO Q6H #0 tabs 05/03/23 [Rx] aluminum-mag hydroxide-simethicone 200 mg-200 mg-20 mg/5 mL oral susp (Mag-Al Plus) 30 ml PO Q4H PRN Epigastric distress (Non-Card) #0 mL 05/03/23 [Rx] ascorbic acid (vitamin C) 500 mg tablet (Vitamin C) 500 mg PO DAILY #0 tabs 05/03/23 [Rx] aspirin 81 mg tablet,delayed release 81 mg PO DAILY #0 tabs 05/03/23 [Rx] atorvastatin 80 mg tablet 80 mg PO QPM #0 tabs 05/03/23 [Rx] bisacodyl 10 mg rectal suppository 10 mg [place] DAILY PRN Constipation #0 ea 05/03/23 [Rx] bisacodyl 5 mg tablet,delayed release 10 mg PO DAILY PRN Constipation #0 tabs 05/03/23 [Rx] calcium carbonate 500 mg-vitamin D3 5 mcg (200 unit) tablet (Oyster Shell Calcium-Vitamin D3) 1 tab PO TID.WITH.MEALS #0 tabs 05/03/23 [Rx] enoxaparin 40 mg/0.4 mL subcutaneous syringe (Lovenox) 40 mg (0.4 mL) subcut DAILY@1000 15 days #0 mL 05/03/23 [Rx] hydrocodone 5 mg-acetaminophen 325 mg tablet 1 - 2 tab PO Q4H PRN Pain #0 tabs 05/03/23 [Rx] insulin aspart U-100 100 unit/mL (3 mL) subcutaneous pen (Novolog FlexPen U-100 Insulin aspart) 0 units (0 mL) subcut TID.WM.HS #0 mL 05/03/23 [Rx] insulin aspart U-100 100 unit/mL (3 mL) subcutaneous pen (Novolog FlexPen U-100 Insulin aspart) See Protocol subcut TID.WITH.MEALS #0 mL 10/23/23 [Rx] insulin glargine 100 unit/mL (3 mL) subcutaneous pen (Lantus Solostar U-100 Insulin) 7 units (0.07 mL) subcut BID #0 mL 05/03/23 [Rx] lidocaine HCl 10 mg/mL (1 %) injection solution (Xylocaine) 0.1 ml intradermal PREOP PRN Venipuncture x 1 Dose #0 mL 05/03/23 [Rx] magnesium hydroxide 400 mg/5 mL oral suspension (Milk of Magnesia) 30 ml PO BID PRN Constipation #0 mL 05/03/23 [Rx] nitroglycerin 0.4 mg sublingual tablet 0.4 mg sublingual Q5M PRN Chest Pain #0 tabs 05/03/23 [Rx] potassium chloride 20 mEq tablet,extended release(part/cryst) (Klor-Con M) 40 meq PO STAT PRN Hypokalemia #0 tabs 05/03/23 [Rx] sennosides 8.6 mg tablet (Senna Laxative) 2 tab PO HS PRN constipation #0 tabs 05/03/23 [Rx] triamcinolone acetonide 0.1 % topical cream 1 applic topical QID PRN Irritation #0 grams 05/03/23 [Rx] valsartan 80 mg tablet 80 mg PO DAILY #0 tabs 05/03/23 [Rx] Exam Physical Exam Vital Signs: Temp Pulse Resp BP Pulse Ox O2 Del Method O2 Flow Rate 98.1 F 55 L 18 146/77 H 99 Room Air 6 05/03/23 11:48 05/03/23 11:48 05/03/23 11:48 05/03/23 11:48 05/03/23 11:48 05/03/23 11:48 05/02/23 00:00 Narrative: Pleasant NAD RRR Non-labored breathing Abdomen soft Moves extremities antigravity Minimal edema Dressing c/d/i at right hip Results Labs Labs: Laboratory Results - last 24 hr 05/02/23 05/02/23 05/03/23 16:49 20:39 05:14 POC Glucose 427 H* 323 POC Glucose Comment Triglycerides 64 Cholesterol 98 L LDL Cholesterol, Calc 46 VLDL Cholesterol 12 HDL Cholesterol 39 Cholesterol/HDL Ratio 2.5 05/03/23 05/03/23 07:40 11:32 POC Glucose 310 388 POC Glucose Comment Triglycerides Cholesterol LDL Cholesterol, Calc VLDL Cholesterol HDL Cholesterol Cholesterol/HDL Ratio Additional Results Results Comment: I reviewed clinical lab tests, radiology reports and obtained and summated medical records and have ordered follow up lab tests and imaging studies as needed for rehabilitation care. Assessment/Plan (1) Two-vessel coronary artery disease: Code(s): I25.10 - Atherosclerotic heart disease of [place] coronary artery without angina pectoris Status: Acute (2) Nonsustained monomorphic ventricular tachycardia: Code(s): I47.29 - Other ventricular tachycardia Status: Acute (3) Mild left ventricular systolic dysfunction (LVSD): Code(s): I51.89 - Other ill-defined heart diseases Status: Acute (4) Diabetes: Code(s): E11.9 - Type 2 diabetes mellitus without complications Status: Acute (5) Closed intertrochanteric fracture of right hip: Code(s): S72.141A - Displaced intertrochanteric fracture of right femur, initial encounter for closed fracture Status: Acute (6) Impaired mobility and activities of daily living: Code(s): Z74.09 - Other reduced mobility; Z78.9 - Other specified health status Status: Acute (7) Postoperative pain, acute, hip: Code(s): G89.18 - Other acute postprocedural pain; M25.559 - Pain in unspecified hip Status: Acute Plan Mr. Vickers is a 88 year old male with past medical history as below presenting with multifactorial functional decline after right hip fracture status post TFN. -Cleared for IRF by cardiology, plan for outpatient PCI -Monitor cardiopulmonary symptoms during rehab stay -Agreeable to transfer today. CM did discuss with who agrees with plan of care. -May admit today. Patient is medically stable and appropriate for admission to the acute inpatient rehabilitation unit, would benefit from and tolerate least 3 hours daily, at least 5 days/week, of physical and occupational therapy, with additional therapy as needed to address functional impairment related to above documented medical conditions and facilitate community discharge home in a timely fashion. Patient has medical complexity that cannot be best managed at a lower level of care and requires at least 3 times weekly encounters with grants officer for medical management and for plan of care review / changes. Plan: I completed a substantive portion of this encounter, the medical decision making portion of this note in its entirety, including Allied health note review, nursing note review, pmo consultant note review, discussion with nursing and case management, and more than 50% of my time was spent on counseling and coordination of care, time spent 65 minutes Patient was personally seen by me, Dr. Briceno, on the day of encounter, reviewed the history and the relevant portions of the chart, including current orders, allied health and pmo consultant notes, labs/imaging and performed smyth elements of exam and I formulated the plan of care and facilitated the medical decision making. Documented By: Tru Briceno MD 05/03/23 1455 Signed By: <Electronically signed by Tru Briceno MD> 05/03/23 [id number] [facility] Work Phone: Discharge summary Author Humberto Diaz [facility] May 03, 2023 2:54pm Note Date/Time May 03, 2023 2 :39pm [facility] [address] [place] [address] Discharge Summary Signed Patient: Ashwini Vickers MR#: [id number] : 1935 Acct:[id number] Age/Sex: 88 / M Adm Date: 3 Loc: Room: [address] [place] [address]: Humberto Diaz MD Copies to: MD Marie Ambrose,DO~ Providers Date of Discharge: 05/03/23 Discharging Provider: Humberto Diaz Primary Care Provider: Marie Castro Consults: 04/28/23 17:14 Consult to Cardiology Routine 04/28/23 17:16 Consult to Orthopedic Surgery Routine 04/30/23 16:43 Consult to Occupational Therapy Routine Consult to Physical Therapy Routine 04/30/23 16:45 Consult to Case Management Routine 05/03/23 09:47 Consult to Physiatry Routine Discharge Diagnosis (1) Closed intertrochanteric fracture of right hip: (2) Diabetes: (3) Two-vessel coronary artery disease: (4) Nonsustained monomorphic ventricular tachycardia: (5) Mild left ventricular systolic dysfunction (LVSD): (6) Abnormal EKG: Final Diagnosis Final Discharge Diagnosis: As above Summary Hospital Course Hospital course: Patient is a pleasant 88-year-old male with history of diabetes mellitus presented to the emergency room after mechanical fall due to hypoglycemia. The ER he was found to have right intertrochanteric fracture and was admitted for further management. In the ER his labs showed elevated troponin with EKG changes. Cardiology was consulted with echocardiogram showing EF of 40 to 45%. He underwent cardiac catheterization which showed two-vessel disease plan for intervention in 6 weeks. He was cleared for the surgery underwent ORIF without any complication. He will be discharged on aspirin, statin and valsartan with plan for outpatient cardiology follow-up.. Not on beta-sarah due to heart rate on the lower side. Carb coverage added with basal insulin and sliding scale coverage for better diabetic control. Patient recently started seeing and was started on long-acting insulin since his Dexcom G6 was not working properly on insulin pump. Plan was to restart insulin pump with newer G7 sensor. Will recommend outpatient follow-up with Dr. Gómez once discharge regarding his incidence of hypoglycemia and better diabetic control. He will also require cardiology follow-up on discharge. Condition Condition at Discharge: Stable Time Spent with Patient Time spent providing/coordinating discharge services (# min): 38 Surgeries and Procedures Operation Date: 04/29/23 12:00 Actual Procedures p OR Hip TFN, Short or Intermediate Nail(Right) - Ashwini Conrad MD Operation Date: 04/30/23 08:45 Actual Procedures p CL LHC & COR Angio - Anat Perez MD Operation Date: 04/30/23 15:30 Actual Procedures p OR Hip TFN, Short or Intermediate Nail(Right) - Ashwini Conrad MD Diagnostic Studies Completed and Pending Studies Pending studies at discharge: 05/04/23 05:00 Lipid Panel [CHEM] IN AM 05/05/23 05:00 Lipid Panel [CHEM] IN AM Labs on day of discharge: 05/03/23 11:32: POC Glucose 388 05/03/23 07:40: POC Glucose 310 05/03/23 05:14: Triglycerides 64, Cholesterol 98 L, LDL Cholesterol, Calc 46, VLDL Cholesterol 12, HDL Cholesterol 39, Cholesterol/HDL Ratio 2.5 05/02/23 20:39: POC Glucose 323 05/02/23 16:49: POC Glucose 427 H*, POC Glucose Comment Exam Physical Exam Vital Signs: Temp Pulse Resp BP Pulse Ox O2 Del Method O2 Flow Rate 98.1 F 55 L 18 146/77 H 99 Room Air 6 05/03/23 11:48 05/03/23 11:48 05/03/23 11:48 05/03/23 11:48 05/03/23 11:48 05/03/23 11:48 05/02/23 00:00 Const Orientation: alert, awake and oriented x3 Resp Effort & Inspection: normal respiratory effort and able to speak in complete sentences Auscultation: no rales, no rhonchi and no wheezes Cardio Rate: regular rate Rhythm: regular rhythm Heart Sounds: S1 normal and S2 normal GI Palpation: soft, not firm, no guarding and nontender Neuro General: patient alert, patient awake, patient oriented x3, moves all extremities, no focal motor deficits and CN's II-XI intact bilaterally Discharge Plan Discharge Plan Patient Disposition: [place] [facility] [place] Diet: Diabetic Additional Instructions: Rehab to manage: - PT/OT to eval and treat - Monitor VS routine - Orthopedic assessments - Dx. Right hip fracture with surgical repair 04/30/23 -- Partial to full weight bearing as pain tolerance allows right lower extremity in the interim -- Wound care - Daily - Large hip bandaid - Monitor blood sugars - Dx. DM - Cardiac assessments - Routine skin assessments/care - Fall precautions - high fall risk, recent fall DISCHARGE INSTRUCTIONS FOR HIP FRACTURE DIET -As tolerated. ACTIVITY -Sit ideally in high armed straight-backed chair. -May use toilet operator receptionist on commode. -Continue to use walker or crutches with partial to full weight bearing as pain tolerance allows -Continue Physical Therapy as instructed. -Keep dressing clean and dry. -Change dressing daily and as needed, may be removed to shower -You may shower on the third day postoperatively MEDICATIONS -Pain medication as directed. -Resume home medications as directed. -Follow the surgeon's specific instructions regarding anticoagulation medication: Aspirin 81 mg by mouth daily for cardiac protection and Lovenox 40 mg SubQ daily x 15 days for DVT prophylaxis postoperative hip fracture OTHER -Any problems- Call the office at [phone] or return to Emergency Room. -If you are having excessive or persistent pain, swelling, fever (oral temp >101), yellow-green foul smelling drainage or bleeding from incision, excessive redness of incision, nausea, vomiting, or any other problems, you should first call your surgeon at [phone] for advice. If you are unable to contact your surgeon, seek help from a hospital emergency room. FOLLOW UP -Call my office the first business day after discharge and ask for assistance with post-discharge plans, and appointments. Prescriptions: New lidocaine HCl [Xylocaine] 10 mg/mL (1 %) Solution 0.1 ml intradermal PREOP PRN (Reason: Venipuncture x 1 Dose) Qty: 0 0RF atorvastatin 80 mg Tablet 80 mg PO QPM Qty: 0 0RF sennosides [Senna Laxative] 8.6 mg Tablet 2 tab PO HS PRN (Reason: constipation) Qty: 0 0RF acetaminophen [Tylenol] 325 mg Tablet 650 mg PO Q4H PRN (Reason: Pain Scale 1 - 3 or fever) Qty: 0 0RF hydrocodone-acetaminophen 5-325 mg Tablet 1 - 2 tab PO Q4H PRN (Reason: Pain) Qty: 0 0RF valsartan 80 mg Tablet 80 mg PO DAILY Qty: 0 0RF aspirin 81 mg Tablet,Delayed Release (Dr/Ec) 81 mg PO DAILY Qty: 0 0RF acetaminophen 500 mg Tablet 500 mg PO Q6H Qty: 0 0RF triamcinolone acetonide 0.1 % Cream 1 applic topical QID PRN (Reason: Irritation) Qty: 0 0RF potassium chloride [Klor-Con M20] 20 mEq Tablet,Er Particles/Crystals 40 meq PO STAT PRN (Reason: Hypokalemia) Qty: 0 0RF magnesium hydroxide [Milk of Magnesia] 400 mg/5 mL Suspension 30 ml PO BID PRN (Reason: Constipation) Qty: 0 0RF ascorbic acid (vitamin C) [Vitamin C] 500 mg Tablet 500 mg PO DAILY Qty: 0 0RF bisacodyl 10 mg Suppository 10 mg [place] DAILY PRN (Reason: Constipation) Qty: 0 0RF nitroglycerin 0.4 mg Tablet, Sublingual 0.4 mg sublingual Q5M PRN (Reason: Chest Pain) Qty: 0 0RF bisacodyl 5 mg Tablet,Delayed Release (Dr/Ec) 10 mg PO DAILY PRN (Reason: Constipation) Qty: 0 0RF alum-mag hydroxide-simeth [Mag-Al Plus] 200-200-20 mg/5 mL Suspension 30 ml PO Q4H PRN (Reason: Epigastric distress (Non-Card)) Qty: 0 0RF enoxaparin [Lovenox] 40 mg/0.4 mL Syringe 40 mg subcut DAILY@1000 15 Days Qty: 0 0RF insulin aspart U-100 [Novolog FlexPen U-100 Insulin] 100 unit/mL (3 mL) Insulin Pen 0 units subcut TID.WM.HS Qty: 0 0RF insulin aspart U-100 [Novolog FlexPen U-100 Insulin] 100 unit/mL (3 mL) Insulin Pen See Protocol subcut TID.WITH.MEALS Qty: 0 0RF Protocol: Carb Coverage Insulin 1:10 gm CHO Protocol Text: *CARB COVERAGE 1:10* GIVE 1 UNIT OF ASPART FOR EVERY 10 GM CHO EATEN AT MEALS calcium carbonate-vitamin D3 [Oyster Shell Calcium-Vit D3] 500 mg-5 mcg (200 unit) Tablet 1 tab PO TID.WITH.MEALS Qty: 0 0RF insulin glargine [Lantus Solostar U-100 Insulin] 100 unit/mL (3 mL) Insulin Pen 7 units subcut BID Qty: 0 0RF Continued Creon 24,000-76,000 -120,000 unit capsule,delayed release(DR/EC) 2 cap PO TID tamsulosin 0.4 mg capsule 0.4 mg PO DAILY paroxetine HCl 30 mg tablet 30 mg PO DAILY insulin glargine [Lantus Solostar U-100 Insulin] 100 unit/mL (3 mL) insulin pen 18 unit SUBCUT HS insulin aspart U-100 [Novolog FlexPen U-100 Insulin] 100 unit/mL (3 mL) insulin pen 8 unit SUBCUT QACDINNER insulin aspart U-100 [Novolog FlexPen U-100 Insulin] 100 unit/mL (3 mL) insulin pen 5 unit subcut BID.PC.[email or web address].LUNCH Follow Up: Federico Davis DO [Active Staff - D.O.] - (call at discharge from Rehab to see Mining Detail Draftsperson for future ANGIOPLASTY PROCEDURE) Marie Castro DO [Primary Care Provider] - (Please call to schedule a follow up appointment with PCP upon discharge from Rehab.) Ashwini Conrad MD [Active Staff] - (2-3 weeks from DC from rehab/ hospital) Anat Perez MD [Active Staff] - (Please call to schedule a follow up appointment upon discharge from Rehab.) Documented By: Humberto Diaz MD 05/03/23 1437 Signed By: <Electronically signed by Humberto Diaz MD> 05/03/23 [id number] [facility] Work Phone: Evaluation note* Diagnosis Perforated viscus- Primary Other ill-defined conditions Acute gastric ulcer with perforation (HCC) Acute gastric ulcer with perforation, without mention of obstruction Gastric perforation (HCC) 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, without mention of obstruction Absence of pancreas, acquired Acquired total absence of pancreas Diabetes mellitus due to underlying condition (HCC) Secondary diabetes mellitus without mention of complication, not stated as uncontrolled, or unspecified documented in this encounter [facility] Work Phone: evaluation note* Diagnosis Onset Date Resolution Status Abnormal EKG acute Closed intertrochanteric fracture of right hip acute Elevated troponin acute [facility] Work Phone: Evaluation note* Diagnosis Onset Date Resolution Status Abnormal EKG acute Closed intertrochanteric fracture of right hip acute Diabetes acute Elevated troponin acute Impaired mobility and activities of daily living acute Mild left ventricular systolic dysfunction (LVSD) acute Nonsustained monomorphic ventricular tachycardia acute Postoperative pain, acute, hip acute Two-vessel coronary artery disease acute [facility] Work Phone: Evaluation note* Diagnosis Onset Date Resolution Status Abnormal EKG acute Closed intertrochanteric fracture of right hip acute Diabetes acute Elevated troponin acute Impaired mobility and activities of daily living acute Mild left ventricular systolic dysfunction (LVSD) acute Nonsustained monomorphic ventricular tachycardia acute Postoperative pain, acute, hip acute Two-vessel coronary artery disease acute Anxiety and depression acute BPH (benign prostatic hyperplasia) acute CAD (coronary artery disease) acute Closed intertrochanteric fracture of right hip acute Diabetes acute Hypertension acute Impaired mobility and activities of daily living acute Mild left ventricular systolic dysfunction (LVSD) acute Osteoporosis acute Postoperative anemia acute Postoperative pain, acute, hip acute Protein-calorie malnutrition, mild acute Two-vessel coronary artery disease acute Uncontrolled diabetes mellitus acute [facility] Work Phone: Evaluation note* Diagnosis NSTEMI (non-ST elevated myocardial infarction) ([facility])- Primary Acute myocardial infarction, subendocardial infarction, episode of care unspecified Abnormal stress test Other nonspecific abnormal cardiovascular system function study ASHD (arteriosclerotic heart disease) Coronary atherosclerosis of unspecified type of vessel, [place] or graft Essential hypertension Unspecified essential hypertension Diabetes mellitus type II, non insulin dependent ([facility]) Type II or unspecified type diabetes mellitus without mention of complication, not stated as uncontrolled Closed fracture of right hip, initial encounter ([facility]) documented in this encounter [facility] Work Phone: Evaluation noteNo [facility] Other Evaluation note* Diagnosis Onset Date Resolution Status Diabetes acute CAD (coronary artery disease) acute Diabetes acute [facility] Work Phone: Evaluation note* Diagnosis Cardiomyopathy, ischemic- Primary Other specified forms of chronic ischemic heart disease ASHD (arteriosclerotic heart disease) Coronary atherosclerosis of unspecified type of vessel, [place] or graft BMI 20.0-20.9, adult Orthopnea documented in this encounter [facility] Work Phone: History general Narrative - Reported* Type Description Date Medical History stage 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 Strip tubing daily. Empty charissa drain daily and record output Wash daily with soap and water and pat dry Diet: CLD for 3 days, start full liquid diet 01/08 for 3 days, then begin regular diet on 01/11. Discharge Instructions for Bariatric Surgery Home Care It is important to keep the incisions clean and dry to promote healing. Shower with soap and rinse and dry thoroughly. If incisions are oozing, you may cover with clean gauze. Use the incentive spirometer every couple of hours. This is to make sure you are breathing deeply and keeping the air sacs within your lungs as open as possible to prevent respiratory problems. Diet It is important to follow the diet progression very closely in order to prevent complications. Once you move to solids, food must be chewed well. Physical Activity When home, we recommend that you take frequent walks, as tolerated, to prevent complications and increase your endurance. Ask your doctor when you will be able to return to work. You may need to wait 2- [address] you are no longer using pain medications Do not lift anything over ten pounds for 4 weeks. Medications Remember to avoid aspirin, aspirin-containing products, and nonsteroidal anti- inflammatory drugs (NSAIDs, such as ibuprofen, naproxen, etc.). If you were taking these medications before the procedure, and had to stop, ask your doctor when you can resume taking them. Be sure to review your medications with your primary care provider at yourfoow up office vis Follow-up Follow up with your primary care physician in one week. Follow up with Dr. Bueno in 1 week. If you don't already have a scheduled appointment, please call the office at [phone]. Call Your Doctor If Any of the Following Occurs Monitor your recovery once you leave the hospital. If any of the following occur, call your doctor: Signs of infection, including fever above 100F Redness, swelling, increasing pain, excessive bleeding, or any discharge from the incision site Persistent nausea and/or vomiting Pain that you can't control with the medications you've been given Shortness of breath and/or chest pain Tachycardia (racing heart sensation) unrelieved by rest Pain, redness and/or swelling in your feet or legs Sudden onset of severe left shoulder pain or severe abdominal pain Any symptoms that are causing you concern In case of an emergency, call 911 immediately. * Attachments The following attachments cannot be sent through Care Everywhere. * Surgical Drain Care (Ukrainian) [facility] [employer] Work Phone: Hospital Discharge instructions Additional Instructions -Code Status: Full Code. -Activity: Weight bearing as tolerated, may shower, no tub baths/hot tubs/pools until cleared by surgeon. No driving until cleared by surgeon. -Wound care: right hip incision-allow steri strips to fall off on their own, may leave open to air if no drainage, if drainage is present may apply dry sterile dressing and change daily and as needed. -Do not administer flu vaccine until 2 weeks postop. -Check fingerstick blood sugars before meals and at bedtime. -Diet: 2000 calorie per day, carbohydrate consistent, diabetic. -Dietary supplement: Glucerna 1 container twice a day.[facility] Work Phone: Hospital Discharge instructions Additional Instructions DISCHARGE INSTRUCTIONS FOR ANGIOPLASTY/CORONARY/PERIPHERAL/STENT IMPLANT FOR ADULT ANTICOAGULATION -Since the greatest risk of a blood clot forming with the stent occurs in the first 2-3 weeks after implantation, you will need to take anticoagulants for at least 1 yr ANTICOAGULATION MEDICATION [INSERT MEDICATION NAME: Aspirin 81mg once a day, Ticagrelor (Brilinta) 90mg twice a day] STATIN MEDICATION [INSERT MEDICATION NAME: atorvastatin (Lipitor) 80 mg or rosuvastatin (Crestor) 40mg] [Drug-Eluting Stent (BEKAH) duration] DO NOT discontinue Brilinta/Aspirin during the first few months regardless of what you are advised by your family doctor or pharmacist, without first calling the stock replenisher who implanted the stent. If you require pain relief during this time, please take only ACETAMINOPHEN (TYLENOL)- NO additional aspirin or ibuprofen. DISCHARGE ACTIVITIES ARE FOLLOWS: First week after discharge: -Take it easy at home, no strenuous activity. -Do not lift or pull objects over 10-15 pounds, including children, and groceries for four weeks. If puncture site is at wrist do NOT lift more than three pounds for three days. - May walk up stairs. -May shower. -No excessive scrubbing of the affected site (groin). -May ride in car. -May resume sexual intercourse after 1-2 weeks. -No MRI for 12 days. -May drive in 4-7 days. -If puncture site is at the wrist do not manipulate the wrist for 24 hours, and no soaking wrist for three days. Second Week: -May take a bath -May start walking 3 times a week for 15-20 minutes at a leisurely pace. You should be able to carry on a conversation comfortably without feeling winded. -No strenuous activity as in jogging, running, weight lifting, stair steppers, etc. until the stock replenisher approves these activities. Check with the stock replenisher on your first follow-up visit. CALL YOUR PHYSICIAN at [phone]: -If bleeding should occur from the catheter insertion site- apply pressure to the site then immediately call us. -Report any fever, redness, drainage, increased swelling, or firmness at the catheter insertion site. Some bruising or slight swelling may be present at the time of discharge. -Should arm or leg become cold, numb, white, or blue, contact the stock replenisher immediately. -IF you should experience episodes of angina, e.g. chest discomfort, heaviness, tightness, pressure burning with or without radiation to the neck, jaw, arms or back- use 1 Nitrostat tablet under your tongue every 5-10 minutes and up to three tablets. IF NO RELIEF, CALL 911 or GO TO THE NEAREST EMERGENCY ROOM. -Please notify our office if you have recurrent angina. -[Cardiac Rehab Education Provided. Participation in the Cardiopulmonary Rehabilitation program is recommended. Please call Central Scheduling at [phone] to schedule your appointment.] The attending stock replenisher or [facility] nurse clinician should provide you with specific instructions regarding activity, diet, medications, and further follow up for you. Follow the medication instructions provided on your discharge. If the dosages and instructions on this sheet differ from the dosage and instructions on the bottle, follow the instructions on the bottle. [facility] is not responsible for incorrect prescription information provided by the patient during their visit. Do not stop your medications without consulting your health care provider. Please take the list with you to your next doctor's appointment.[facility] Work Phone: Reason for referral (narrative)* Consultation (Routine) - Authorized Specialty Diagnoses / Procedures Referred By Contac t Referred To Contact Cardiology Diagnoses Abnormal stress test ASHD (arteriosclerotic heart disease) NSTEMI (non-ST elevated myocardial infarction) ([facility]/HCC) Procedures Follow Up In Cardiology Adrián Davis, DO [address] [facility] [address], [address] [place] [id number] Adrián Davis, DO [address] [facility] [address], [address] [place] [address] Referral ID Status Reason Start Date Expiration Date V isits Requested Visits Authorized [id number] Authorized 05/25/2023 05/24/2024 1 1 * Cardiovascular (Routine) - Pending Review Specialty Diagnoses / Procedures Referred By Contac t Referred To Contact Diagnoses Abnormal stress test ASHD (arteriosclerotic heart disease) Procedures ECG 12 Lead Adrián Davis, DO [address] [facility] [address], [address] [address] Referral ID Status Reason Start Date Expiration Date V isits Requested Visits Authorized [id number] Pending Review 05/25/2023 05/24/2024 1 1 [facility] Work Phone: Summary Purpose Family History No Family History Records Found Relationship Condition Age at Onset Recorded Date/T madelyn brother Malignant neoplasm Unknown natural son Sarcoma Unknown Advance Directives No Advanced Directives Records FoundLatest Code Status on File Code Status Date Activated Date Inactivated Comments Full Code 01/02/2022 10:32 PM Full Code 01/02/2022 8:11 PM 01/02/2022 10:32 PM Healthcare Agents on File Name Relationship Healthcare Agent Relationshi p Communication Opal Vickers Spouse Primary Decision Maker Saúl Vickers Child Secondary Decision Maker Advance Directive Response Recorded Date/ Time Advance Directives No March 5:30pm Advance Directive Response Recorded Date/ Time Advance Directives No March 4:30pm Chief Complaint and Reason for Visit Chief Complaint fall Reason for Visit Abnormal EKG Closed intertrochanteric fracture of right hip Elevated troponin Chief Complaint fall Reason for Visit Abnormal EKG Closed intertrochanteric fracture of right hip Diabetes Elevated troponin Impaired mobility and activities of daily living Mild left ventricular systolic dysfunction (LVSD) Nonsustained monomorphic ventricular tachycardia Postoperative pain, acute, hip Two-vessel coronary artery disease Chief Complaint fall firht it femur fx s/p TFN Reason for Visit Abnormal EKG Closed intertrochanteric fracture of right hip Diabetes Elevated troponin Impaired mobility and activities of daily living Mild left ventricular systolic dysfunction (LVSD) Nonsustained monomorphic ventricular tachycardia Postoperative pain, acute, hip Two-vessel coronary artery disease Anxiety and depression BPH (benign prostatic hyperplasia) CAD (coronary artery disease) Closed intertrochanteric fracture of right hip Diabetes Hypertension Impaired mobility and activities of daily living Mild left ventricular systolic dysfunction (LVSD) Osteoporosis Postoperative anemia Postoperative pain, acute, hip Protein-calorie malnutrition, mild Two-vessel coronary artery disease Uncontrolled diabetes mellitus Chief Complaint fall firht it femur fx s/p TFN S72.141A Reason for Visit Abnormal EKG Closed intertrochanteric fracture of right hip Diabetes Elevated troponin Impaired mobility and activities of daily living Mild left ventricular systolic dysfunction (LVSD) Nonsustained monomorphic ventricular tachycardia Postoperative pain, acute, hip Two-vessel coronary artery disease Anxiety and depression BPH (benign prostatic hyperplasia) CAD (coronary artery disease) Closed intertrochanteric fracture of right hip Diabetes Hypertension Impaired mobility and activities of daily living Mild left ventricular systolic dysfunction (LVSD) Osteoporosis Postoperative anemia Postoperative pain, acute, hip Protein-calorie malnutrition, mild Two-vessel coronary artery disease Uncontrolled diabetes mellitus Chief Complaint fall firht it femur fx s/p TFN S72.141A S72.141A Abnormal Stress, CAD, Cardiomyopathy Reason for Visit Diabetes CAD (coronary artery disease) Diabetes Additional Source Comments (unrecognized sect ion and content) No Status Records FoundNo Status Records FoundNo Status Records FoundNo Status Records FoundNo Status Records FoundNo Status Records FoundNo Status Records FoundNo Status Records FoundNo Status Records Found INFORMATION SOURCE (unrecogn ized section and content) DATE CREATED AUTHOR 06/25/2018 [facility] DATE CREATED AUTHOR AUTHOR'S ORGANIZ ATION 06/21/2019 [facility] DATE CREATED AUTHOR AUTHOR'S ORGANIZ ATION 01/29/[address] [facility] DATE CREATED AUTHOR AUTHOR'S ORGANIZ ATION 06/11/2022 [facility] DATE CREATED AUTHOR AUTHOR'S ORGANIZ ATION 05/31/2023 [facility] EPIC DATE CREATED AUTHOR AUTHOR'S ORGANIZ ATION 06/12/2023 [facility] DATE CREATED AUTHOR AUTHOR'S ORGANIZ ATION 07/02/2023 [facility] DATE CREATED AUTHOR AUTHOR'S ORGANIZ ATION 08/16/2023 [facility] DATE CREATED AUTHOR AUTHOR'S ORGANIZ ATION 08/20/2023 [facility] Ambulatory Reason for Visit (unrecogniz ed section and content) Reason Comments Abdominal Pain ulcer Specialty Diagnoses / Procedures Referred By Contac t Referred To Contact Diagnoses Acute gastric ulcer with perforation (HCC) Perforated viscus Paul Conn, DO [address] [address] [facility] [address] [place] [address] Referral ID Status Reason Start Date Expiration Date Visits Re quested Visits Authorized [id number] 1 1 Reason Comments [facility] [place] [facility] [place] Specialty Diagnoses / Procedures Referred By Contac t Referred To Contact Diagnoses Abnormal stress test ASHD (arteriosclerotic heart disease) Procedures ECG 12 Lead Adrián Davis, DO [address] [facility], [facility] [address] [place] [address] Referral ID Status Reason Start Date Expiration Date V isits Requested Visits Authorized [id number] Pending Review 05/25/2023 05/24/2024 1 1 Reason Comments Follow-up PCI Specialty Diagnoses / Procedures Referred By Contac t Referred To Contact Cardiology Diagnoses ASHD (arteriosclerotic heart disease) Procedures Follow Up In Cardiology Sammy Wolff, [employer] [address] [facility] [address], [address] [place] [address] Referral ID Status Reason Start Date Expiration Date V isits Requested Visits Authorized [id number] Authorized 06/23/2023 06/22/2024 1 1 Ordered Prescriptions (unrec ognized section and content) Prescription Sig Dispensed Refills Start Date End Da te amLODIPine (NORVASC) 5 MG tablet Take 1 tablet by mouth daily 30 tablet 3 01/07/2022 sucralfate (CARAFATE) 1 GM/10ML suspension Take 10 mLs by mouth 4 times daily 1200 mL 3 01/07/2022 pantoprazole (PROTONIX) 40 MG tablet Take 1 tablet by mouth every morning (before breakfast) 90 tablet 1 01/07/2022 Scheduled Active and Recently Administ ered Medications (unrecognized section and content) Medication Order 01/05/2022 01/06/2022 01/07/2022 acetaminophen (TYLENOL) tablet 1,000 mg 1,000 mg, Oral, EVERY 8 HOURS SCHEDULED (3 times per day), First dose on Wed01/06/22 at 1400, Until Discontinued, Maximum dose of acetaminophen is 4000 mg from all sources in 24 hours. 1407 (Given - Provider: Baljit Sage RN)2350 (Given - Provider: Queta Geiger, KARIN) 0517 (Given - Provider: Queta Geiger, KARIN)1400 (Due)2200 (Due) amLODIPine (NORVASC) tablet 5 mg 5 mg, Oral, DAILY, First dose on Wed01/04/22 at 1500, Until Discontinued 0940 (Given - Provider: Baljit Sage RN) 0938 (Given - Provider: Baljit Sage RN) 0935 (Given - Provider: Leatha Hudson, KARIN) enoxaparin (LOVENOX) injection 40 mg 40 mg, SubCUTAneous, DAILY, First dose on Wed01/03/22 at 0900, Until Discontinued, Indication of Use: Prophylaxis-DVT/PE 0940 (Given - Provider: Baljit Sage RN) 0939 (Not Given - Provider: Baljit Sage RN - Reason: Patient/family refused) 0939 (Not Given - Provider: Leatha Hudson, KARIN - Reason: Patient/family refused) Insulin Pump - Basal Dose (Patient Supplied) SubCUTAneous, DAILY, First dose on Wed01/03/22 at 1530, Total daily basal dose (total number of units/24 hours) provided by patient and/or query of insulin pump. 0951 (Patient/Family Admin - Provider: Baljit Sage RN) 0939 (Patient/Family Admin - Provider: Baljit Sage RN) 0815 (Patient/Family Admin - Provider: Leatha Hudson RN) Insulin Pump - Bolus Dose (Patient Supplied) SubCUTAneous, EVERY 4 HOURS, First dose on 01/03/22 at 1600, Patient to bolus using insulin pump based on current home settings for carbohydrates coverage and blood glucose correction. 0401 (Not Given - Provider: Aliyah Hanley RN - Reason: Patient took at home)0942 (Not Given - Provider: Baljit Sage RN - Reason: Order parameters not met - Comment: blood glucose 126)1144 (Not Given - Provider: Baljit Sage RN - Reason: Order parameters not met - Comment: blood glucose 166 and patient not eating)1550 (Not Given - Provider: Baljit Sage RN - Reason: Order parameters not met - Comment: Blood glucose 175 and patient not eating)1999 (Held - Provider: Queta Geiger RN - Reason: Patient/family refused - Comment: Pt states he is not eating much so he did not self administer insulin) 0121 (Held - Provider: Queta Geiger RN - Reason: Order parameters not met)0623 (Not Given - Provider: Courtney Yao RN - Reason: Other - Comment: Pt reports that insulin pump automatically checks his sugar and doses insulin)0801 (Patient/Family Admin - Provider: Baljit Sage RN)1211 (Patient/Family Admin - Provider: Baljit Sage RN - Comment: 139)1641 (Not Given - Provider: Baljit Sage RN - Reason: Order parameters not met)1928 (Patient/Family Admin - Provider: Queta Geiger RN - Comment: bs 142 per pt) 0000 (Due)0400 (Due)0800 (Patient/Family Admin - Provider: Leatha Hudson RN - Comment: blood sugar 73)1217 (Patient/Family Admin - Provider: Leatha Hudson, KARIN)1600 (Due)2000 (Due) magnesium oxide (MAG-OX) tablet 400 mg (COMPLETED) 400 mg, Oral, ONCE, 1 dose, On Wed01/07/22 at 1030 1218 (Given - Provider: Leatha Hudson, RN) magnesium sulfate 2000 mg in 50 mL IVPB premix (COMPLETED) 2,000 mg, IntraVENous, at 25 mL/hr, Administer over 2 Hours, ONCE, On 6/27/22 at 0630, For 1 dose, Recommended infusion rate not to exceed 1,000 mg (milligrams) per hour. 0739 (New Bag - Provider: Baljit Sage RN)0939 (Stopped - Provider: Baljit Sage RN) methocarbamol (ROBAXIN) 750 mg in dextrose 5 % 100 mL IVPB (CANCELED) 750 mg, IntraVENous, at 200 mL/hr, Administer over 30 Minutes, EVERY 6 HOURS, First dose on Wed01/02/22 at 2300 0000 (Stopped - Provider: Aliyah Hanley RN)0454 (New Bag - Provider: Aliyah Hanley RN)0558 (Stopped - Provider: Aliyah Hanley, KARIN)1129 (New Bag - Provider: Baljit Sage RN)1159 (Stopped - Provider: Baljit Sgae, KARIN)1655 (New Bag - Provider: Baljit Sage, KARIN)1725 (Stopped - Provider: Baljit Sage, RN)2317 (New Bag - Provider: Queta Geiger, KARIN)2351 (Stopped - Provider: Queta Geiger RN) 0506 (New Bag - Provider: Queta Geiger, KARIN)0536 (Stopped - Provider: Courtney Yao RN)1104 (New Bag - Provider: Baljit Sage, KARIN)1134 (Stopped - Provider: Baljit Sage RN) pantoprazole (PROTONIX) 40 mg in sodium chloride (PF) 10 mL injection 40 mg, IntraVENous, EVERY 12 HOURS, First dose on Wed01/02/22 at 2300, Reconstitute with 10 mL 0.9 % sodium chloride and administer over at least 2 minutes. 1132 (Given - Provider: Baljit Sage RN)2300 (Given - Provider: Queta Geiger, KARIN) 1100 (Given - Provider: Baljit Sage, KARIN)2355 (Given - Provider: Queta Geiger, RN) 0939 (Given - Provider: Leatha Hudson RN)2300 (Due) PARoxetine (PAXIL) tablet 30 mg 30 mg, Oral, EVERY MORNING, First dose on Wed01/05/22 at 0900, Until Discontinued 0940 (Given - Provider: Baljit Sage RN) 0939 (Given - Provider: Baljit Sage RN) 0934 (Given - Provider: Leatha Hudson RN) phosphorus (K PHOS NEUTRAL) tablet 1 tablet (COMPLETED) Each tablet contains 250mg elemental phosphorus (8mmol), 1.1 mEq potassium, 13 mEq sodium, 1 tablet (250 mg), Oral, ONCE, 1 dose, On Wed01/07/22 at 1030 1218 (Given - Provider: Leatha Hudson RN) piperacillin-tazobactam (ZOSYN) 3,375 mg in dextrose 5 % 50 mL IVPB (mini-bag) (CANCELED) 3,375 mg, IntraVENous, EVERY 6 HOURS, 16 doses, First dose (after last modification) on Wed01/02/22 at 2300, Last dose on Wed01/06/22 at 1700, Antimicrobial Indications: Intra-Abdominal Infection 0401 (Stopped - Provider: Aliyah Hanley RN)0454 (New Bag - Provider: Aliyah Hanley RN)0854 (Stopped - Provider: Aurelia Castillo RN)1130 (New Bag - Provider: Baljit Sage RN)1530 (Stopped - Provider: Baljit Sage RN)1655 (New Bag - Provider: Baljit Sage RN)2123 (Stopped - Provider: Queta Geiger RN)2312 (New Bag - Provider: Queta Geiger RN) 0335 (Stopped - Provider: Queta Geiger RN)0507 (New Bag - Provider: Queta Geiger RN)0907 (Stopped - Provider: Baljit Sage RN)1104 (New Bag - Provider: Baljit Sage RN)1504 (Stopped - Provider: Aurelia Castillo RN)1732 (Canceled Entry - Provider: Baljit Sage RN - Comment: order discontinued) potassium bicarb-citric acid (EFFER-K) effervescent tablet 40 mEq (COMPLETED) 40 mEq, Oral, ONCE, 1 dose, On Wed01/07/22 at 1030, Do not chew or crush. Dissolve flavored tablets completely in 3 to 4 ounces of cold water; unflavored tablets may be dissolved in 3 to 4 ounces of cold juice. Patient to sip slowly over a 5 to 10 minute period. May further dilute if GI adverse effects occur. 1217 (Given - Provider: Leatha Hudson RN) potassium chloride (KLOR-CON M) extended release tablet 40 mEq (COMPLETED) 40 mEq, Oral, ONCE, 1 dose, On Wed01/06/22 at 0915, Do not crush, chew, or suck on tablet. Tablet may also be broken in half and each half swallowed separately. 0939 (Given - Provider: Baljit Sage RN) potassium chloride 10 mEq/100 mL IVPB (Peripheral Line) (COMPLETED) 10 mEq, IntraVENous, EVERY HOUR, 2 doses, First dose on Wed01/05/22 at 0700, Last dose on Wed01/05/22 at 0800, at 100 mL/hr 0740 (New Bag - Provider: Baljit Sage, RN)0947 (New Bag - Provider: Baljit Sage RN) potassium phosphate 15 mmol in dextrose 5 % 250 mL IVPB (COMPLETED) 15 mmol, IntraVENous, at 125 mL/hr, Administer over 120 Minutes, ONCE, On Wed01/05/22 at 0630, For 1 dose 0950 (New Bag - Provider: Baljit Sage RN)1150 (Stopped - Provider: Baljit Sage RN) sodium chloride flush 0.9 % injection 5-40 mL 5-40 mL, IntraVENous, EVERY 12 HOURS SCHEDULED (2 times per day), First dose on Wed01/02/22 at 2300, Until Discontinued, For Line Patency: Peripheral IV = 5 mL; Midline or Central Line = 10 mL/lumen. If following IV push medication, administer flush at same rate as the IV push. Flush volume is determined by type of infusion therapy being given. For non-viscous solutions use: Peripheral IV = 5 mL Midline or Central Line = 10 mL/lumen For viscous solutions (i.e. blood components, parenteral nutrition, contrast media, or after obtaining blood sample) use: Peripheral IV = 10 mL Midline or Central Line = 20 mL/lumen 0954 (Given - Provider: Baljit Sage RN)2014 (Given - Provider: Queta Geiger, KARIN) 0939 (Given - Provider: Baljit Sage RN)192 (Given - Provider: Queta Geiger, RN) 0938 (Not Given - Provider: Leatha Hudson RN - Reason: IV Fluid Infusing)2100 (Due) sucralfate (CARAFATE) 1 GM/10ML suspension 1 g 1 g, Oral, EVERY 6 HOURS SCHEDULED (4 times per day), First dose on Wed01/02/22 at 2030, Until Discontinued, Please select a reason the therapeutic interchange was not accepted: Other (Please Comment), Need suspension 0512 (Given - Provider: Aliyah Hanley RN)1134 (Given - Provider: Baljit Sage, KARIN)1759 (Given - Provider: Baljit Sage, KARIN)2306 (Given - Provider: Queta Geiger, KARIN) 0621 (Given - Provider: Queta Geiger, RN)1211 (Given - Provider: Baljit Sage, KARIN)1757 (Given - Provider: Baljit Sage, KARIN)2350 (Given - Provider: Queta Geiger, KARIN) 0517 (Given - Provider: Queta Geiger, KARIN)1217 (Given - Provider: Leatha Hudson RN)1800 (Due) Continuous Medication Order 01/05/2022 01/06/2022 01/07/2022 0.9 % sodium chloride infusion IntraVENous, at 75 mL/hr, CONTINUOUS, Starting on Wed01/06/22 at 0830 0807 (New Bag - Provider: Baljit Sage RN)2349 (New Bag - Provider: Queta Geiger, KARIN) lactated ringers infusion (CANCELED) IntraVENous, at 125 mL/hr, CONTINUOUS, Starting on Wed01/02/22 at 2300 1310 (Stopped - Provider: Baljit Sage RN)1310 (New Bag - Provider: Baljit Sage RN)1822 (Stopped - Provider: Baljit Sage RN - Comment: order discontinued) PRN Medication Order 01/05/2022 01/06/2022 01/07/2022 0.9 % sodium chloride infusion IntraVENous, at 5-250 mL/hr, PRN, if patient receiving piggyback infusions and maintenance fluids are not ordered OR KVO fluids to protect IV site / prevent frequent line interruptions/ long duration, Starting on Wed01/02/22 at 2231, For piggyback infusion, administer at same rate as piggyback for a total of 25 mL. Enter 25 mL into dose field and piggyback rate into rate field of order. If piggyback is infusing at a rate less than 100 mL/hr, enter 25 mL into dose field and 100 mL/hr into rate field of order. For KVO fluids, enter rate of 20 mL/hr or less into rate field of order. bisacodyl (DULCOLAX) suppository 10 mg 10 mg, Rectal, DAILY PRN, Starting on Wed01/02/22 at 2231, Until Discontinued, Constipation, First line therapy for constipation dextrose 5 % solution 100 mL/hr, IntraVENous, PRN, Low blood sugar, Starting on 01/03/22 at 1458, Start infusion following administration of dextrose 10%, dextrose 50%, or glucagon. dextrose bolus 10% 125 mL(Linked Group 1) 125 mL, IntraVENous, at 937.5 mL/hr, Administer over 8 Minutes, PRN, Other, Blood glucose 40 - 69 mg/dL and patient NOT ALERT or NPO, Starting on 01/03/22 at 1458, Start D5W at 100 mL/hour until ordering provider can be reached. Repeat blood glucose in 15 minutes. If blood glucose is 40 - 69 mg/dL, repeat treatment and recheck blood glucose in 15 minutes x 2. If using Glucostabilizer, dose as instructed per system. dextrose bolus 10% 250 mL(Linked Group 1) 250 mL, IntraVENous, at 937.5 mL/hr, Administer over 16 Minutes, PRN, Other, Blood glucose LESS than 40 mg/dL and patient NOT ALERT or NPO, Starting on 01/03/22 at 1458, Start D5W at 100 mL/hour until ordering provider can be reached. Repeat blood glucose in 15 minutes. If blood glucose is LESS than 40 mg/dL, repeat treatment and recheck blood glucose in 15 minutes x 2. If using Glucostabilizer, dose as instructed per system. glucagon (rDNA) injection 1 mg 1 mg, IntraMUSCular, PRN, Starting on 01/03/22 at 1458, Until Discontinued, Low blood sugar, Blood glucose less than 70 mg/dL and patient NOT ALERT or NPO and does not have IV access., After administration, attempt intravenous access and start D5W at 100 mL/hr. Repeat blood glucose in 15 minutes x2 and notify provider. hydrALAZINE (APRESOLINE) injection 10 mg 10 mg, IntraVENous, EVERY 6 HOURS PRN, Starting on Wed01/04/22 at 0740, Until Discontinued, High Blood Pressure, for sbp >160 iohexol (OMNIPAQUE 240) injection 100 mL (COMPLETED) 100 mL, Oral, IMG ONCE PRN, 1 dose, Starting on Wed01/05/22 at 0844, Until Wed01/05/22 at 0845, Other 0845 (Given - Provider: Kathy Ness) melatonin tablet 3 mg 3 mg, Oral, NIGHTLY PRN, Starting on Wed01/06/22 at 0000, Until Discontinued, Sleep 0022 (Given - Provider: Queta Geiger RN) ondansetron (ZOFRAN) injection 4 mg(Linked Group 2) 4 mg, IntraVENous, EVERY 6 HOURS PRN, Starting on Wed01/02/22 at 2232, Until Discontinued, Nausea, Vomiting, Administer if oral route cannot be used. ondansetron (ZOFRAN-ODT) disintegrating tablet 4 mg(Linked Group 2) 4 mg, Oral, EVERY 8 HOURS PRN, Starting on Wed01/02/22 at 2232, Until Discontinued, Nausea, Vomiting sodium chloride flush 0.9 % injection 5-40 mL 5-40 mL, IntraVENous, PRN, Starting on Wed01/02/22 at 2231, Until Discontinued, Line Care, After every IV line use, For Line Patency: Peripheral IV = 5 mL; Midline or Central Line = 10 mL/lumen. If following IV push medication, administer flush at same rate as the IV push. Flush volume is determined by type of infusion therapy being given. For non-viscous solutions use: Peripheral IV = 5 mL Midline or Central Line = 10 mL/lumen For viscous solutions (i.e. blood components, parenteral nutrition, contrast media, or after obtaining blood sample) use: Peripheral IV = 10 mL Midline or Central Line = 20 mL/lumen Linked Groups Order Group 1: dextrose bolus 10% 125 mLJump to med 125 mL, IntraVENous, at 937.5 mL/hr, Administer over 8 Minutes, PRN, Other, Blood glucose 40 - 69 mg/dL and patient NOT ALERT or NPO, Starting on 01/03/22 at 1458
Start D5W at 100 mL/hour until ordering provider can be reached. Repeat blood glucose in 15 minutes. If blood glucose is 40 - 69 mg/dL, repeat treatment and recheck blood glucose in 15 minutes x 2. If using Glucostabilizer, dose as instructed per system.
Or dextrose bolus 10% 250 mLJump to med 250 mL, IntraVENous, at 937.5 mL/hr, Administer over 16 Minutes, PRN, Other, Blood glucose LESS than 40 mg/dL and patient NOT ALERT or NPO, Starting on 01/03/22 at 1458
Start D5W at 100 mL/hour until ordering provider can be reached. Repeat blood glucose in 15 minutes. If blood glucose is LESS than 40 mg/dL, repeat treatment and recheck blood glucose in 15 minutes x 2. If using Glucostabilizer, dose as instructed per system.
Group 2: ondansetron (ZOFRAN-ODT) disintegrating tablet 4 mgJump to med 4 mg, Oral, EVERY 8 HOURS PRN, Starting on Wed01/02/22 at 2232, Until Discontinued, Nausea, Vomiting Or ondansetron (ZOFRAN) injection 4 mgJump to med 4 mg, IntraVENous, EVERY 6 HOURS PRN, Starting on Wed01/02/22 at 2232, Until Discontinued, Nausea, Vomiting
Administer if oral route cannot be used.
Care Teams (unrecognized sec tion and content) Team Status: Active Member Role Status Dates Marie Castro DO Primary Care Provider Active Team Status: Inactive Member Role Status Dates Marie Castro DO Primary Care Provider Active Vinnie Rivas PA-C Emergency Provider Active Sushant Cordon DO Admit Provider Active Ashwini Conrad MD Other Provider Active Chuck Velasco MD Other Provider Active Anat Perez MD Other Provider Active Humberto Diaz MD Attending Provider Active Tru Briceno MD Other Provider Active Elevator Service Technician Relationship Specialty Start Date End Date Marie Castro [facility] [address] [place] [address] PCP - General Internal Medicine 01/07/22 Team Status: Active Member Role Status Dates Marie Castro DO Primary Care Provider Active Vinnie Rivas PA-C Emergency Provider Active Sushant Lindbloom , DO Admit Provider, Attending Pr ovider Active Team Status: Inactive Member Role Status Dates Marie Castro , DO Primary Care Provider Active Fredi Medrano MD Admit Provider, Attending Provider Active Lois Rios , RN Other Provider Active Kavya Velazquez , RN Other Provider Active Gay Angulo , RN Other Provider Active Buffy Hernandez , RN Other Provider Active Fransisca Bentley , RN Other Provider Active Diamond Henry , KARIN Other Provider Active Chris Holm MD Other Provider Active Vivian Zavala , [employer] Other Provider Active Samantha Wilson , DO Other Provider Active Eric Major MD Other Provider Active Sushant Cordon , DO Other Provider Active Audi Gaming MD Other Provider Active Cecily Keen MD Other Provider Active Nidia Wright , [employer] Other Provider Active Daniel Reyes MD Other Provider Active Roberto Sevilla MD Other Provider Active Humberto Diaz MD Other Provider Active Marzena Otto MD Other Provider Active Gray Gilliam , DO Other Provider Active Mc Cornejo MD Other Provider Active Raymundo Angeles MD Other Provider Active Marga Mccauley , SR. PAYROLL MANAGER-C Other Provider Active Indra Guillory MD Other Provider Active David Fonseca MD Other Provider Active Hai Aguilera MD Other Provider Active Esau Corrales MD Other Provider Active Leda Julian , DO Other Provider Active Guevara Mills , DO Other Provider Active Jose Roberto Felder , DO Other Provider Active Anat Marte ARROW POINT ATTACHER Other Provider Active Warren Gross , DO Other Provider Active Nayeli Jimenez MD Other Provider Active Nicole Wolff ARROW POINT ATTACHER Other Provider Active Melisa Pimentel , ARROW POINT ATTACHER Other Provider Active Vidya Robert MD Other Provider Active Howard Burrell MD Other Provider Active Immanuel John , DO Other Provider Active Rosario Murdock APRN Other Provider Active Mauricio Drake , DO Other Provider Active Erma Morillo , KARIN Other Provider Active Elevator Service Technician Relationship Specialty Start Date End Date Marie Csatro, DO [address] [place] [address] PCP - General Internal Medicine 05/18/23 Team Status: Inactive Member Role Status Dates Marie Castro , Primary Care Provider Active Ashwini Conrad MD Attending Provider Active Team Status: Inactive Member Role Status Dates Marie Castro , Primary Care Provider Active Vinnie Rivas PA-C Emergency Provider Active Sushant Cordon , Admit Provider Active Ashwini Conrad MD Other Provider Active Chuck Velasco MD Other Provider Active Anat Perez MD Other Provider Active Humberto Diaz MD Attending Provider Active Tru Briceno MD Other Provider Active Team Status: Inactive Member Role Status Dates Marie Castro , Primary Care Provider Active Federico Davis DO Attending Provider Active Team Status: Inactive Member Role Status Dates Marie Castro , Primary Care Provider Active Herminio Lakhani MD Attending Provider Active Elevator Service Technician Relationship Specialty Start Date End Date Marie Castro DO [address] [facility] [address] [place] [address] PCP - General Internal Medicine 05/18/23 FOR RECORDS PERTAINING TO PATIENTS WHO ARE OR HAVE BEEN ENROLLED IN A CHEMICAL DEPENDENCY/SUBSTANCEABUSE PROGRAM, SOME INFORMATION MAY BE OMITTED. This clinical summary was aggregated from multiple sources. Caution should be exercised in using it in the provision of clinical care. This summary normalizes information from multiple sources, and as a consequence, information in this document may materially change the coding, format and clinical context of patient data. In addition, data may be omitted in some cases. CLINICAL DECISIONS SHOULD BE BASED ON THE PRIMARY CLINICAL RECORDS. [facility]. provides no warranty or guarantee of the accuracy or completeness of information in this document.
[2023-08-21] MEDS: DEXTROSE 50 %-WATER 25 GM/50 ML SYRINGE IV ×2 (11:07→11:22)
[2023-08-21 11:11] LABS: Basophils Percent Auto 0.3 % (0.2-2.0); Eosinophils Percent Auto 0.2 % (0.9-7.0); Hemoglobin 9.9 g/dL (14.0-18.0); Immature Granulocytes Abs Auto 0.04 10^3/uL (0.00-0.03); Immature Granulocytes Pct Auto 0.3 % (0.0-0.5); Lymphocytes Absolute Auto 1.2 10^3/uL (1.2-3.8); Lymphocytes Percent Auto 10.2 % (20.5-60.0); Mean Corpuscular Hemoglobin 26.1 pg (25.9-34.0); Mean Corpuscular Volume 78.9 fL (80.0-94.0); Mean Platelet Volume 11.4 fL (9.5-13.5); Monocytes Absolute Auto 1.3 10^3/uL (0.3-0.8); Platelet Count 264 10^3/uL (150-450); Red Cell Distribution Width 18.9 % (11.0-15.0); White Blood Count 11.5 10^3/uL (4.0-11.0)
[2023-08-21 11:17] LABS: Glucometer 66 mg/dL (74-106)
[2023-08-21] MEDS: DEXTROSE 10 % IN WATER 1,000 ML 100 ML IV (11:21)
[2023-08-21 11:30] LABS: Alanine Aminotransferase 32 U/L (16-63); Albumin Globulin Ratio 0.8; Albumin Level 3.2 g/dL (3.4-5.0); Alkaline Phosphatase 170 U/L (46-116); Anion Gap 11.2; Aspartate Amino Transferase 40 U/L (15-37); BUN Creatinine Ratio 34.2; Bilirubin Total 0.3 mg/dL (0.2-1.0); Calcium 8.1 mg/dL (8.5-10.1); Carbon Dioxide 28.8 mmol/L (21.0-32.0); Chloride 99 mmol/L (98-107); Estimated GFR (African America >60 (>=60); Estimated GFR (Non-African Ame >60 (>=60); Globulin 3.8 g/dL; Glucose 145 mg/dL (74-106); Sodium 135 mmol/L (136-145); Troponin I High Sensitivity 55.4 pg/mL (4.0-76.1)
[2023-08-21 11:49] LABS: Glucometer 134 mg/dL (74-106)
--- NOTE | 2023-08-21 11:49 | ED_ITS ---
HPI - Altered Mental Status General Chief Complaint: Altered Mental Status Stated Complaint: OTHER Time Seen by Provider: 08/21/23 10:56 Source: family Mode of arrival: Wheelchair Limitations: no limitations History of Present Illness HPI narrative: The patient is diabetic, according to the he woke up at 1 AM remembering that he did not take his Lantus and he went downstairs to take his insulin. Around almost 2 AM the patient all of a sudden started having movements when he was asleep they noted at that time that his blood sugar was low and she mentioned that she called the ambulance they came in the system his blood sugar was low. They also recommended that he come to the ER but the patient did not want to come to the ER and the mentioned that she gave him breakfast twice but none of this is helping his blood sugars to stay elevated. The patient upon arrival is awake but not responding as he is moving his upper and lower extremity and distress. Blood sugar was 57 after the blood sugar was treated with dextrose 50 the patient is awake having no complaints. The patient denies any complain at all Related Data Home Medications Medication Instructions Recorded Confirmed clopidogrel 75 mg tablet 75 mg PO .qd 08/21/23 08/21/23 furosemide 20 mg tablet 20 mg PO .qd 08/21/23 08/21/23 insulin glargine 100 unit/mL (3 18 unit subcut .qhs 08/21/23 08/21/23 mL) subcutaneous pen (Lantus Solostar U-100 Insulin) [id number] 2 cap PO TIDWM 08/21/23 08/21/23 24,000-76,000-120,000 unit capsule,delayed rel (Creon) nitroglycerin 0.4 mg sublingual 0.4 mg sublingual Q5M PRN chest 08/21/23 08/21/23 tablet pain tamsulosin 0.4 mg capsule 0.4 mg PO QAM 08/21/23 08/21/23 Allergies Allergy/AdvReac Type Severity Reaction Status Date / Time No Known Drug Allergies Allergy Verified 08/21/23 11:01 Review of Systems ROS Status of ROS 10 or more systems reviewed and unremark able except as noted in history and below PFSH PFSH Social History Smoking status: Never smoker Exam Narrative Exam Narrative: The patient neurological assessment was done after he was provided with dextrose Nurses notes and vital signs reviewed and patient is not hypoxic. General: Well-appearing and in no apparent distress. Skin: Warm, dry, no pallor noted. No rash. Head: Normocephalic, atraumatic. Neck: Supple, non-tender. Eye: Pupils are equal, round and EOMI. No scleral icterus. Ears, Nose, Mouth, and Throat: TM are clear, no nasal mucosal hypertrophy. Oral mucosa is moist, no posterior oropharynx erythema, uvula is mid-line Cardiovascular: Regular Rate and Rhythm without murmur, gallop or rub. Respiratory: No accessory muscle use or respiratory distress. Lungs are clear to auscultation, no wheezing, rales or rhonchi Chest Wall: no tenderness Back: No midline thoracic or lumbar vertebral tenderness. No CVA tenderness Musculoskeletal: normal ROM, no calf or popliteal tenderness, no lower extremity edema/swelling GI: Abdomen is soft, non-distended. Normal bowel sounds. No masses appreciated. No tenderness to palpation. No rebound, guarding, or rigidity noted. Neurological: A&O x4. No cranial nerve dysfunction observed. No truncal ataxia. Moves all extremities. Sensation intact. Psychiatric: Cooperative and interactive. Normal mood and affect. Constitutional Vital Signs, click to edit/add: Last Vital Signs Temp 98.0 F 08/21/23 10:56 Pulse 61 08/21/23 12:40 Resp 17 08/21/23 12:40 BP 148/81 H 08/21/23 12:32 Pulse Ox 97 08/21/23 12:40 O2 Del Method Room Air 08/21/23 10:56 Course Vital Signs Vital signs: Vital Signs Temperature 98.0 F 08/21/23 10:56 Pulse Rate 84 08/21/23 10:56 Respiratory Rate 18 08/21/23 10:56 Blood Pressure 174/100 H 08/21/23 10:56 Pulse Oximetry 97 08/21/23 10:56 Oxygen Delivery Method Room Air 08/21/23 10:56 Temperature 98.0 F 08/21/23 10:56 Pulse Rate 61 08/21/23 12:40 Respiratory Rate 17 08/21/23 12:40 Blood Pressure 148/81 H 08/21/23 12:32 Pulse Oximetry 97 08/21/23 12:40 Oxygen Delivery Method Room Air 08/21/23 10:56 MDM - Altered Mental Status MDM Narrative Medical decision making narrative: The patient initially did had some altered in his mentation upon arrival as he was moving his upper and lower extremities and closing his eyes while his blood sugar was 57. He was not having a seizure but he did look distressed. The patient blood sugar at that time was 57 when provided with dextrose his blood sugar responded and he did had no more symptoms almost few minutes after that. CT of the head showed no acute pathology. CBC and chemistry showed no acute pathology as well. The patient blood sugar kept dropping and he is right now provided with 10% dextrose at 150 cc/h with a blood sugar again is 66 and he was provided with a another 50% dextrose. The patient does take Lantus 16 units he took them at 1 AM this morning. Will be admitted for further evaluation his blood sugar and the his case was discussed with Dr. Vallecillo who agreed with above-mentioned plan and The patient it was noted that his sensor detected a blood sugar of 50 but his [id number] did show 93 he did not have any symptoms and he is having 150 cc of 10% dextrose running mostly the sensor is inaccurate but the patient is kept on monitoring every 30 minutes Lab Data Labs: Lab Results 08/21/23 08/21/23 08/21/23 Range/Units 11:02 11:16 11:48 WBC 11.5 H (4.0-11.0) 10^3/uL RBC 3.80 L (4.70-6.10) 10^6/uL Hgb 9.9 L (14.0-18.0) g/dL Hct 30.0 L (42.0-54.0) % MCV 78.9 L (80.0-94.0) fL MCH 26.1 (25.9-34.0) pg MCHC 33.0 (29.9-35.2) g/dL RDW 18.9 H (11.0-15.0) % Plt Count 264 (150-450) 10^3/uL MPV 11.4 (9.5-13.5) fL Neut % (Auto) 78.0 H (43.0-75.0) % Lymph % (Auto) 10.2 L (20.5-60.0) % [place] % (Auto) 11.0 (1.7-12.0) % Eos % (Auto) 0.2 L (0.9-7.0) % Baso % (Auto) 0.3 (0.2-2.0) % Neut # (Auto) 9.0 H (1.4-6.5) 10^3/uL Lymph # (Auto) 1.2 (1.2-3.8) 10^3/uL [place] # (Auto) 1.3 H (0.3-0.8) 10^3/uL Eos # (Auto) 0.0 (0.0-0.7) 10^3/uL Baso # (Auto) 0.0 (0.0-0.1) 10^3/uL Abs Immat Gran (auto) 0.04 H (0.00-0.03) 10^3/uL Imm/Tot Granulo (auto) 0.3 (0.0-0.5) % Sodium 135 L (136-145) mmol/L Potassium 4.0 (3.5-5.1) mmol/L Chloride 99 (98-107) mmol/L Carbon Dioxide 28.8 (21.0-32.0) mmol/L Anion Gap 11.2 BUN 27.0 H (7.0-18.0) mg/dL Creatinine 0.79 (0.70-1.30) mg/dL Est GFR ( Amer) >60 (>=60) Est GFR (Non-Af Amer) >60 (>=60) BUN/Creatinine Ratio 34.2 Glucose 145 H (74-106) mg/dL Estimat Average Glucose 189 mg/dL Hemoglobin A1c 8.2 H (4.5-6.2) % Calcium 8.1 L (8.5-10.1) mg/dL Magnesium 1.9 (1.8-2.4) mg/dL Total Bilirubin 0.3 (0.2-1.0) mg/dL AST 40 H (15-37) U/L ALT 32 (16-63) U/L Alkaline Phosphatase 170 H (46-116) U/L Troponin I High Sens 55.4 (4.0-76.1) pg/mL Total Protein 7.0 (6.4-8.2) g/dL Albumin 3.2 L (3.4-5.0) g/dL Globulin 3.8 g/dL Albumin/Globulin Ratio 0.8 POC Glucose 66 L 134 H (74-106) mg/dL 08/21/23 08/21/23 Range/Units 12:20 12:41 WBC (4.0-11.0) 10^3/uL RBC (4.70-6.10) 10^6/uL Hgb (14.0-18.0) g/dL Hct (42.0-54.0) % MCV (80.0-94.0) fL MCH (25.9-34.0) pg MCHC (29.9-35.2) g/dL RDW (11.0-15.0) % Plt Count (150-450) 10^3/uL MPV (9.5-13.5) fL Neut % (Auto) (43.0-75.0) % Lymph % (Auto) (20.5-60.0) % [place] % (Auto) (1.7-12.0) % Eos % (Auto) (0.9-7.0) % Baso % (Auto) (0.2-2.0) % Neut # (Auto) (1.4-6.5) 10^3/uL Lymph # (Auto) (1.2-3.8) 10^3/uL [place] # (Auto) (0.3-0.8) 10^3/uL Eos # (Auto) (0.0-0.7) 10^3/uL Baso # (Auto) (0.0-0.1) 10^3/uL Abs Immat Gran (auto) (0.00-0.03) 10^3/uL Imm/Tot Granulo (auto) (0.0-0.5) % Sodium (136-145) mmol/L Potassium (3.5-5.1) mmol/L Chloride (98-107) mmol/L Carbon Dioxide (21.0-32.0) mmol/L Anion Gap BUN (7.0-18.0) mg/dL Creatinine (0.70-1.30) mg/dL Est GFR ( Amer) (>=60) Est GFR (Non-Af Amer) (>=60) BUN/Creatinine Ratio Glucose (74-106) mg/dL Estimat Average Glucose mg/dL Hemoglobin A1c (4.5-6.2) % Calcium (8.5-10.1) mg/dL Magnesium (1.8-2.4) mg/dL Total Bilirubin (0.2-1.0) mg/dL AST (15-37) U/L ALT (16-63) U/L Alkaline Phosphatase (46-116) U/L Troponin I High Sens (4.0-76.1) pg/mL Total Protein (6.4-8.2) g/dL Albumin (3.4-5.0) g/dL Globulin g/dL Albumin/Globulin Ratio POC Glucose 94 95 (74-106) mg/dL Discharge Plan Discharge Chief Complaint: Altered Mental Status Clinical Impression: Hypoglycemia Patient Disposition: Admitted As Inpatient Time of Disposition Decision: 12:45 Condition: Good
[2023-08-21 12:12] LABS: Magnesium 1.9 mg/dL (1.8-2.4)
[2023-08-21 12:22] LABS: Glucometer 94 mg/dL (74-106)
[2023-08-21 12:42] LABS: Glucometer 95 mg/dL (74-106)
[2023-08-21 13:35] LABS: Estimated Average Glucose 189 mg/dL; Glycohemoglobin A1C 8.2 % (4.5-6.2)
--- OUTSIDE RECORDS SUMMARY | 2023-08-21 13:51 | XMS_ITS | CCD ---
Author Name Unknown Address [address] [place] [address] Organization [facility] Care Team Providers Care [employer] Name Role Phone MARINO CASTILLO Unavailable Unavailable MARIE CASTRO Unavailable Unavailab MARINO Merlos Unavailable Unavailable MARINO CASTILLO Unavailable Unavailable MARINO CASTILLO Unavailable Unavailable MARINO CASTILLO Unavailable Unavailable MARINO CASTILLO Unavailable Unavailable MARIE JULIAN (FEL) Unavailable Unavailable MARIE CASTRO Unavailable Unavailab Marie Santoyo Primary Care Provider PAUL CONN Admitting Unavailable PAUL CONN Attending Unavailable DUNCAN FRANCIS Consulting Unavailable MARIE CASTRO Primary Care Unavailable JOSE A, DR FRANCO Primary Care Unavailable KESHA DOBSON Admitting Unavailable KESHA DOBSON Attending Unavailable KESHA DOBSON Consulting Unavailable ROLA HOLCOMB Consulting Unavailable MATTHEW, DR SALAZAR Admitting Unavailable MATTHEW, DR SALAZAR Attending Unavailable [facility] DR CHANEY Primary Care Unavailable MATTHEW, DR SALAZAR Consulting Unavailable MATTHEW, DR SALAZAR Admitting Unavailable MATTHEW, DR SALAZAR Attending Unavailable DR SALVADOR NARANJO Primary Care Unavailable MATTHEW, DR SALAZAR Consulting Unavailable DO Marie Castro Primary Care Provider JO Rivas Emergency Provider [phone] DO Sushant Cordon Admit Provider DO Sushant Cordon Attending Provider MD Ashwini Conrad Other Provider [phone] MD Chuck Velasco Other Provider MD Anat Perez Other Provider MD Humberto Diaz Attending Provider MD Tru Briceno Other Provider MD Fredi Medrano Admit Provider MD Fredi Medrano Attending Provider [phone] KARIN Rios Other Provider Unavailable KARIN Velazquez Other Provider Unavailable KARIN Angulo Other Provider Unavailable KARIN Hernandez Other Provider Unavailable KARIN Bentley Other Provider Unavailable KARIN Henry Other Provider Unavailable MD Chris Holm Other Provider AMADA Zavala Other Provider DO Samantha Wilson Other Provider MD Eric Major Other Provider DO Sushant Cordon Other Provider MD Audi Gaming Other Provider MD Cecily Keen Other Provider [phone] AMADA Wright Other Provider MD Daniel Reyes Other Provider MD Roberto Sevilla Other Provider MD Humberto Diaz Other Provider MD Marzena Otto Other Provider DO Gray Gilliam Other Provider MD Mc Cornejo Other Provider MD Raymundo Angeles Other Provider MARYANN Mccauley Other Provider MD Indra Guillory Other Provider MD David Fonseca Other Provider MD Hai Augilera Other Provider MD Esau Corrales Other Provider DO Leda Julian Other Provider DO Guevara Mills Other Provider DO Jose Roberto Felder Other Provider AMADA Marte Other Provider DO Warren Gross Other Provider MD Nayeli Jimenez Other Provider AMADA Wolff Other Provider AMADA Pimentel Other Provider MD Vidya Robert Other Provider MD Howard Burrell Other Provider DO Immanuel John Other Provider [phone] AMADA Murdock Other Provider DO Vidal Yadontae Other Provider KARIN Morillo Other Provider Unavailable Ashwini Conrad Unavailable Marie Castro DO Primary Care Provider MARIE CASTRO Referring Unavailable MARIE CASTRO Attending Unavailable MARIE CASTRO Referring Unavailable DO Marie Castro Primary Care Provider JO Rivas Emergency Provider [phone] DO Sushant Cordon Admit Provider MD Ashwini Conrad Other Provider MD Chuck Velasco Other Provider MD Anat Perez Other Provider MD Humberto Diaz Attending Provider MD Tru Briceno Other Provider MD Fredi Medrano Admit Provider [phone] MD Fredi Medrano Attending Provider [phone] KARIN Rios Other Provider Unavailable KARIN Velazquez Other Provider Unavailable KARIN Angulo Other Provider Unavailable KARIN Hernandez Other Provider Unavailable KARIN Bentley Other Provider Unavailable KARIN Henry Other Provider Unavailable MD Chris Holm Other Provider AMADA Zavalaa M Other Provider DO Samantha Wilson Other Provider MD Eric Major Other Provider DO Sushant Cordon Other Provider MD Audi Gaming Other Provider [phone] MD Cecily Keen Other Provider AMADA Wright Other Provider MD Daniel Reyes Other Provider MD Roberto Sevilla Other Provider MD Humberto Diaz Other Provider MD aMrzena Otto Other Provider DO Gray Gilliam Other Provider [phone] MD Mc Cornejo Other Provider MD Raymundo Angeles Other Provider MARYANN Mccauley Other Provider MD Indra Guillory Other Provider MD David Fonseca Other Provider MD Hai Aguilera Other Provider MD Esau Corrales Other Provider DO Leda Julian Other Provider DO Guevara Mills Other Provider DO Jose Roberto Felder Other Provider AMADA Marte Other Provider DO Warren Gross Other Provider MD Nayeli Jimenez Other Provider [phone] AMADA Wolff Other Provider AMADA Pimentel Other Provider MD Vidya Robert Other Provider MD Howard Burrell Other Provider [phone] JohnDO Immanuel Other Provider AMADA Murdock Other Provider [phone] DO Mauricio Drake Other Provider KARIN Morillo [...] Attending Provider MD Herminio Lakhani Attending Provider Federico Davis Attending Unavailable Federico Davis Admitting [...] Consulting Unavailable Fredi Medrano Attending UnavailMarie [facility] Care Unavailable Lois Rios Consulting Unavailable Fredi [...] on 01/04/22 at 1500, Until Discontinued amylase 844327 unt / lipase 72625 unt / protease 16713 unt delayed release oral capsule (14 sources) Start: 05-07-2023 take 47127-01305 capsules by mouth once Qwbcnz-Osveiaxl-Sirdqfu (Creon) 24,000-76,000 -120,000 unit Capsule,Delayed Release(Dr/Ec) Active 2 CAP PO 3x/Day with meals 120 May 06, 2023 11:00pm Start: 04-28-2023 End: 05-07-2023 take 32968-98607 capsules by mouth three times daily Ouwpng-Mlbmmrgl-Bbqmdym (Creon) 24,000-76,000 -120,000 unit capsule,delayed release(DR/EC) Discontinued 2 CAP PO Three times daily April 27, 2023 11:00pm May 07, 2023 1:27pm take 1 capsule by mo [facility] three times daily at mealtime wjbblz-blyaqsuq-lywakbq (CREON) 49277-84601 units delayed release capsule Take 1 capsule by mouth 3 times daily (with meals) 0 Active lipase-protease- amylase (CREON) 65682-10979 units delayed release capsule Take 12,000 Units [...] Supplied) lipase/protease/amylase (CREON ORAL) (2 sources) take 56436 mg by mouth three times daily lipase/protease/amylas [...] 11:00pm May 07, 2023 1:27pm Vitamin D3 [id number] UNIT/GM (4 sources) Vitamin D3 99791 00 UNIT/GM as directed Active Completed/Discontinued Medications [...] 4-6 hrs for 7 days ROSEANN # [id number] Active take 1 tablet by sondra th [...] 05-03-2023 End: 05-03-2023 Bisacodyl Discontinued 10 MG DC Daily 0 May 02, 2023 11:00pm May [...] 5:10pm Start: 05-03-[address] 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] Onset: 3 [...] 07-27-2023 XR hip RT min 2V(w/wo pelvis)* [facility] [place] [address] XRay Report Signed Patient: Ashwini Vickers MR#: [id number] 353 : 1935 Acct:[id number] Age/Sex: 88 / M ADM Date: 07/27/23 Loc: [facility] Room: Type: [facility] Attending Dr: Herminio Lakhani MD Copies to: [...] Sofia Rosales M.D.07/27/2023 2:31 PM Dictation Location: [place] [address] Transcribed By: [facility] 07/27/23 1431 Dictated By: Sofia Roasles MD 07/27/23 1428 Signed By: 07/27/23 1431 Normal [facility] Activated partial thrombopla stin time (aPTT) in platelet poor plasma by coagulation aOrdered By: Federico Davis on 07-16-2023 aPTT Coag (PPP) [Time] 30.2 s 25.1-36.5 [facility] Comment on above: A hematocrit value g reater than 55% may lead to inaccurate results in coagulation testing. Patients having hematocrit values >55% require a special collection tube for coagulation studies. Please contact the laboratory at [phone] for redraw instructions. Anisocytosis [Presence] in B lood by Light microscopyOrdered By: Federico Davis on 07-16-2023 Anisocytosis Ql (Bld) Slight Normal [facility] Comment on above: Performed By: #### B UN, SCAN CBC, LYTES ####[facility] [address] Automated basophil %Ordered By: Federico Davis on 07-16-2023 Basophils/100 WBC (Bld) 0.5 % Normal . [facility] Comment on above: Performed By: #### B UN, SCAN CBC, LYTES ####[address] Automated basophil countOrde red By: Federico Davis on 07-16-2023 Basophils (Bld) [#/Vol] 0.0 10*3/uL Normal 0.0-0.2 [facility] Comment on above: Performed By: #### B UN, SCAN CBC, LYTES ####[address] Automated blood monocyte cou ntOrdered By: Federico Davis on 07-16-2023 Monocytes (Bld) [#/Vol] 1.3 10*3/uL High 0.0-0.8 [facility] Comment on above: Performed By: #### B UN, SCAN CBC, LYTES ####[address] Automated eosinophil %Ordere d By: Federico Davis on 07-16-2023 Eosinophils/100 WBC (Bld) 0.3 % Normal . [facility] Comment on above: Performed By: #### B UN, SCAN CBC, LYTES ####[address] Automated eosinophil countOr dered By: Federico Davis on 07-16-2023 Eosinophils (Bld) [#/Vol] 0.0 10*3/uL Normal 0.0-0.45 [facility] Comment on above: Performed By: #### B UN, SCAN CBC, LYTES ####[address] Automated monocyte %Ordered By: Federico Davis on 07-16-2023 Monocytes/100 WBC (Bld) 15.1 % Normal . [facility] Comment on above: Performed By: #### B UN, SCAN CBC, LYTES ####[address] Automated neutrophil %Ordere d By: Federico Davis on 07-16-2023 Neutrophils/100 WBC (Bld) 75.7 % Normal . [facility] Comment on above: Performed By: #### B UN, SCAN CBC, LYTES ####[place] [address] [place] [id number] [facility] Carbon dioxide, total [Moles /volume] in Serum or PlasmaOrdered By: Federico Davis on 07-16-2023 CO2 [Moles/Vol] 26.8 mmol/L Normal 21.0-31.0 [facility] Comment on above: Performed By: #### B UN, SCAN CBC, LYTES ####[place] [id number] [facility] Chloride [Moles/volume] in S jihan or PlasmaOrdered By: Federico Davis on 07-16-2023 Chloride [Moles/Vol] 103 mmol/L Normal 98-107 [facility] Comment on above: Performed By: #### B UN, SCAN CBC, LYTES ####[place] [id number] [facility] Coagulation Profileon 2023 aPTT Coag (Bld) [Time] 30.2 s Normal 25.1-36.5 [facility] Comment on above: Result Comment: A he matocrit value greater than 55% may lead to inaccurate results in coagulation testing. Patients having hematocrit values >55% require a special collection tube for coagulation studies. Please contact the laboratory at [phone] for redraw instructions. PERFORMED BY: [address] [place] [id number] PATHOLOGIST HEART COORDINATOR AIRAM MAST M.D. Performed By: #### P P ####[place] [id number] [facility] Creatinineon 07-16-2023 GFR/1.73 sq M.predicted MDRD (S/P/Bld) [Vol rate/Area] mL/min/{1.73_m2} Normal [facility] Comment on above: Result Comment: PERF ORMED BY: [facility] [address] [place] [id number] PATHOLOGIST HEART COORDINATOR AIRAM MAST M.D. Performed By: #### C REAT ####[place] [id number] [facility] Creatinine [Mass/volume] in Serum or PlasmaOrdered By: Federico Davis on 07-16-2023 Creatinine [Mass/Vol] 0.71 mg/dL Normal 0.70-1.30 [facility] Comment on above: Performed By: #### C REAT ####[facility] Rro[address] [place] [address] [facility] ECG 12 lead ECGon 07-16-2023 ECG 12 lead ECG [facility] [address] [place] [id number] Electrocardiograph Report Signed Patient: Ashwini Vickers MR#: [id number] 353 : 1935 Acct:[id number] Age/Sex: 88 / M ADM Date: 07/16/23 Loc: [facility] Room: Type: [facility] Attending Dr: Federico Davis DO Ordering [...] previous ECGs available Confirmed by Chuck Velasco ([id number]) on 07/18/2023 4:16:02 PM Referred By: NO Electronically Signed By:Chuck Velasco Transcribed By: MUS Signed By Chuck Velasco MD 07/18/23 1616 [facility] ECG 12 lead ECG [facility] [address] [address] Electrocardiograph Report Signed Patient: Ashwini Vickers MR#: [id number] 353 : 1935 Acct:[id number] Age/Sex: 88 / M ADM Date: 07/16/23 [...] in Anterior leads Confirmed by Chuck Velasco ([id number]) on 07/18/2023 4:15:51 PM Referred By: Electronically Signed By:Chuck Velasco Transcribed By: MUS Signed By Chuck Velasco MD 07/18/23 1615 [facility] Erythrocyte distribution wid th [Ratio] by Automated countOrdered By: Federico Davis on 07-16-2023 Erythrocyte distribution width (RBC) [Ratio] 16.5 % High 12.0-14.8 [facility] Comment on above: Performed By: #### B UN, SCAN CBC, LYTES ####[facility] Ght[address] [place] [id number] [facility] Erythrocytes [#/volume] in B lood by Automated countOrdered By: Federico Davis on 07-16-2023 RBC (Bld) [#/Vol] 4.17 10*6/uL Normal 3.90-5.60 [facility] Comment on above: Performed By: #### B UN, SCAN CBC, LYTES ####[facility] [id number] [place] [id number] [facility] Glucose Glucometer (BldC) [M ass/Vol]Ordered By: Federico Davis on 07-16-2023 Glucose [Mass/Vol] 398 mg/dL [facility] Comment on above: Random Glucose Refer ence Range is dependent on time and content of last meal. Glucose of more than 200 mg/dL in a nonstressed, ambulatory subject supports the diagnosis of Diabetes Mellitus. Glucose Poct Glucometerson 0 07-16-2023 Commemt1 Glu2: Cleaned Meter Normal [facility] Comment on above: Result Comment: PERF ORMED BY: [facility] [address] [place] [id number] PATHOLOGIST HEART COORDINATOR AIRAM MAST M.D. Performed By: #### G LULS ####Point of Care testing, Glucose [Mass/Vol] 398 mg/dL Normal [facility] Comment on above: Result Comment: [place] Glucose Reference Range is dependent on time and content of last meal. Glucose of more than 200 mg/dL in a nonstressed, ambulatory subject supports the diagnosis of Diabetes Mellitus. Performed By: #### G LULS ####Point of Care testing, Glucose [Mass/Vol] 96 mg/dL Normal [facility] Comment on above: Result Comment: [place] Glucose Reference Range is dependent on time and content of last meal. Glucose of more than 200 mg/dL in a nonstressed, ambulatory subject supports the diagnosis of Diabetes Mellitus. PERFORMED BY: [facility] [address] [place] [address] PATHOLOGIST HEART COORDINATOR AIRAM MAST M.D. Performed By: #### G LULS #### Point of Care testing , Hematocrit [Volume Fraction] of Blood by Automated countOrdered By: Federico Davis on 07-16-2023 Hematocrit (Bld) [Volume fraction] 33.5 % Low 38.8-50.0 [facility] Comment on above: Performed By: #### B UN, SCAN CBC, LYTES ####[facility] [id number] [place] [address] Hemoglobin [Mass/volume] in BloodOrdered By: Federico Davis on 07-16-2023 Hemoglobin (Bld) [Mass/Vol] 11.0 g/dL Low 13.0-17.0 [facility] Comment on above: Performed By: #### B UN, SCAN CBC, LYTES ####[facility] [id number] [place] [address] Hypochromia LM Ql (Bld)Order ed By: Federico Davis on 07-16-2023 Hypochromia Ql (Bld) Marked [facility] INR in Platelet poor plasma by Coagulation assayOrdered By: Federico Davis on 07-16-2023 INR Coag (PPP) [Relative time] 1.1 {INR} Normal [facility] Comment on above: INR Therapeutic Rang [...] - 4.5 Performed By: #### P P ####[address] Leukocytes [#/volume] correc robert for nucleated erythrocytes in Blood by Automated counOrdered By: Federico Davis on 07-16-2023 WBC corrected for nucl RBC Auto (Bld) [#/Vol] 8.4 10*3/uL 4.1-10.5 [facility] Leukocytes [#/volume] in Blo od by Automated countOrdered By: Federico Davis on 07-16-2023 WBC (Bld) [#/Vol] 8.4 10*3/uL Normal 4.1-10.5 [facility] Comment on above: Performed By: #### B UN, SCAN CBC, LYTES ####[address] Lymphocytes [#/volume] in Bl ood by Automated countOrdered By: Federico Davis on 07-16-2023 Lymphocytes (Bld) [#/Vol] 0.7 10*3/uL Low 1.00-4.8 [facility] Comment on above: Performed By: #### B UN, SCAN CBC, LYTES ####[address] Lymphocytes/100 leukocytes i n Blood by Automated countOrdered By: Federico Davis on 07-16-2023 Lymphocytes/100 WBC (Bld) 8.4 % Normal . [facility] Comment on above: Performed By: #### B UN, SCAN CBC, LYTES ####[facility] [id number] MCH [Entitic mass] by Automa robert countOrdered By: Federico Davis on 07-16-2023 MCH (RBC) [Entitic mass] 26.4 pg Low 27.5-35.2 [facility] Comment on above: Performed By: #### B UN, SCAN CBC, LYTES ####[place] [address] MCHC Auto (RBC) [Mass/Vol]Or dered By: Federico Davis on 07-16-2023 MCHC (RBC) [Mass/Vol] 32.8 g/dL 32.5-35.6 [facility] MCV [Entitic volume] by Auto mated countOrdered By: Federico Davis on 07-16-2023 MCV (RBC) [Entitic vol] 80.4 fL Low 83.5-101 [facility] Comment on above: Performed By: #### B UN, SCAN CBC, LYTES ####[facility] [id number] [place] [address] Macrocytes LM Ql (Bld)Ordere d By: Federico Davis on 07-16-2023 Macrocytes Ql (Bld) Slight [facility] Neutrophils [#/volume] in Bl ood by Automated countOrdered By: Federico Davis on 07-16-2023 Neutrophils (Bld) [#/Vol] 6.3 10*3/uL Normal 1.8-7.7 [facility] Comment on above: Performed By: #### B UN, SCAN CBC, LYTES ####[facility] [id number] No Panel InformationOrdered By: Federico Davis on 07-16-2023 Bedside Glucose Comment Glu2: cleaned meter [facility] Estimated GFR (CKD-EPI) > 60.0 mL/Min [facility] Creatinine Clearance (Chem N/A [facility] Nucleated erythrocytes [Pres ence] in Blood by Automated countOrdered By: Federico Davis on 07-16-2023 Nucleated RBC Auto Ql (Bld) 0.1 /100{WBC} 0-0.5 [facility] Platelet adequacy [Presence] in Blood by Light microscopyOrdered By: Federico Davis on 07-16-2023 Platelets LM Ql (Bld) Normal Normal [facility] Platelet mean volume [Entiti c volume] in Blood by Automated countOrdered By: Federico Davis on 07-16-2023 Platelet mean volume (Bld) [Entitic vol] 10.1 fL Normal 6.6-10.1 [facility] Comment on above: Performed By: #### B UN, SCAN CBC, LYTES ####[facility] [id number] Platelet morphology finding [Identifier] in BloodOrdered By: Federico Davis on 07-16-2023 Platelet morphology finding Nom (Bld) N/A [facility] Platelets Large [Presence] i n Blood by Light microscopyOrdered By: Federico Davis on 07-16-2023 Platelets Large LM Ql (Bld) Slight [facility] Platelets [#/volume] in Bloo d by Automated countOrdered By: Federico Davis on 07-16-2023 Platelets (Bld) [#/Vol] 243 10*3/uL Normal 150-450 [facility] Comment on above: Performed By: #### B UN, SCAN CBC, LYTES ####[facility] [id number] [place] [address] Poikilocytosis [Presence] in Blood by Light microscopyOrdered By: Federico Davis on 07-16-2023 Poikilocytosis LM Ql (Bld) Moderate [facility] Polychromasia [Presence] in Blood by Light microscopyOrdered By: Federico Davis on 07-16-2023 Polychromasia LM Ql (Bld) Moderate [facility] Potassium [Moles/volume] in Serum or PlasmaOrdered By: Federico Davis on 07-16-2023 Potassium [Moles/Vol] 4.2 mmol/L Normal 3.5-5.1 [facility] Comment on above: Performed By: #### B UN, SCAN CBC, LYTES ####[address] Prothrombin time (PT)Ordered By: Federico Davis on 07-16-2023 PT Coag (PPP) [Time] 12.3 s Normal 9.0-12.9 [facility] Comment on above: A hematocrit value g reater than 55% may lead to inaccurate results in coagulation testing. Patients having hematocrit values >55% require a special collection tube for coagulation studies. Please contact the laboratory at [phone] for redraw instructions. Result Comment: A he matocrit value greater than 55% may lead to inaccurate results in coagulation testing. Patients having hematocrit values >55% require a special collection tube for coagulation studies. Please contact the laboratory at [phone] for redraw instructions. Performed By: #### P P ####[address] RBC morphologyOrdered By: Federico Davis on 07-16-2023 RBC morphology finding Nom (Bld) N/A [facility] Scan and CBCon 07-16-2023 Hypochromasia Marked Normal [facility] Comment on above: Performed By: #### B UN, SCAN CBC, LYTES ####[address] Large Platelets Slight Normal [facility] Comment on above: Result Comment: PERF ORMED BY: [facility] [address] [place] [address] PATHOLOGIST HEART COORDINATOR AIRAM MAST M.D. Performed By: #### B UN, SCAN CBC, LYTES ####[address] Macrocytosis Slight Normal [facility] Comment on above: Performed By: #### B UN, SCAN CBC, LYTES ####[address] Mean Corpuscular HGB Conc 32.8 g/dL Normal 32.5-35.6 [facility] Comment on above: Performed By: #### B UN, SCAN CBC, LYTES ####[place] [address] NRBC% 0.1 /100{WBC} Normal 0-0.5 [facility] Comment on above: Performed By: #### B UN, SCAN CBC, LYTES ####[address] Platelet Estimate Normal Normal Normal [facility] Comment on above: Performed By: #### B UN, SCAN CBC, LYTES ####[place] [address] Poikilocytosis Moderate Normal [facility] Comment on above: Performed By: #### B UN, SCAN CBC, LYTES ####[place] [address] Polychromasia Moderate Normal [facility] Comment on above: Performed By: #### B UN, SCAN CBC, LYTES ####[address] Schistocytes Slight Normal [facility] Comment on above: Performed By: #### B UN, SCAN CBC, LYTES ####[place] [address] Target Cells Moderate Normal [facility] Comment on above: Performed By: #### B UN, SCAN CBC, LYTES ####[address] Schistocytes [Presence] in B lood by Light microscopyOrdered By: Federico Davis on 07-16-2023 Schistocytes LM Ql (Bld) Slight [facility] Serum or plasma anion gap de terminationOrdered By: Federico Davis on 07-16-2023 Anion gap [Moles/Vol] 12.4 mmol/L Normal 6.0-15.0 [facility] Comment on above: Performed By: #### B UN, SCAN CBC, LYTES ####[address] [address] Sodium [Moles/volume] in Ser um or PlasmaOrdered By: Federico Davis on 07-16-2023 Sodium [Moles/Vol] 138 mmol/L Normal 136-145 [facility] Comment on above: Performed By: #### B UN, SCAN CBC, LYTES ####[place] [id number] [place] [id number] [facility] Target cellsOrdered By: Federico espino on 07-16-2023 Target cells LM Ql (Bld) Moderate [facility] Urea nitrogen [Mass/volume] in Serum or PlasmaOrdered By: Federico Davis on 07-16-2023 Urea nitrogen [Mass/Vol] 16 mg/dL Normal 7-25 [facility] Comment on above: Result Comment: PERF ORMED BY: [place] [address] PATHOLOGIST HEART COORDINATOR AIRAM MAST M.D. Performed By: #### B UN, SCAN CBC, LYTES ####[place] [id number] [facility] XR femur RT 2V*on 06-11-2023 XR femur RT 2V* [facility] Main [place] [address] [place] [address] XRay Report Signed Patient: Ashwini Vickers MR#: [id number] : 1935 Acct:[id number] Age/Sex: 88 / M ADM Date: 06/11/23 Loc: [facility] Room: Type: [facility] Attending Dr: Ashwini Conrad MD Copies to: [...] Sheldon Johnson M.D.06/11/2023 2:43 PM Dictation Location: [facility]--12 Transcribed By: ERIBERTO 06/11/231442 Dictated By: Sheldon Johnson DO 06/11/231439 Signed By: 06/11/23 144 [facility] Progress Noteson 06-02-2023 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 Interface Message Text EMERGENCY TRIAGE, TREAT AND TRANSPORT (ET3) DOCUMENTATION OF TELEHEALTH VISIT Date / Time: 06/02/2023929 Name: Ifeanyi Vickers : 1935 SSN: (Not on file) EMS Agency: [facility] [x] Verbal consent obtained [] [...] Completed by: Herminio Weston MD Normal [employer] [facility] XR HIP 2 OR 3 VW [...] anterolateral ST T wave abnormality, abnormal ECG [facility] Work Phone: XR hip RT min 2V(w/wo pelvis )*on 05-21-2023 XR hip RT min 2V(w/wo pelvis)* [facility] Main [place] [address] [place] [address] XRay Report Signed Patient: Ashwini Vickers MR#: [id number] : 1935 Acct:[id number] Age/Sex: 88 / M ADM Date: 05/21/23 Loc: [facility] Room: Type: [facility] Attending Dr: Ashwini Conrad MD Copies to: [...] Sheldon Johnson M.D.05/21/2023 4:06 PM Dictation Location: [place] [address] Transcribed By: [facility] 05/21/231605 Dictated By: Sheldon Johnson DO 05/21/231603 Signed By: 05/21/231605 [facility] Glucose Glucometer (BldC) [M ass/Vol]Ordered By: Fredi Medrano on 05-08-2023 Glucose [Mass/Vol] 98 mg/dL [facility] Comment on above: Random Glucose Refer ence Range is dependent on time and content of last meal. Glucose of more than 200 mg/dL in a nonstressed, ambulatory subject supports the diagnosis of Diabetes Mellitus. Glucose Poct Glucometerson 1 Commemt1 Glu2: Cleaned Meter [facility] Comment on above: Result Comment: PERF ORMED BY: [facility] [address] [place] [address] PATHOLOGIST HEART COORDINATOR AIRAM MAST M.D. Performed By: #### G LULS #### Point of Care testing , Glucose [Mass/Vol] 98 mg/dL Normal [facility] Comment on above: Result Comment: [place] Glucose Reference Range is dependent on time and content of last meal. Glucose of more than 200 mg/dL in a nonstressed, ambulatory subject supports the diagnosis of Diabetes Mellitus. Performed By: #### G LULS #### Point of Care testing , No Panel InformationOrdered By: Fredi Medrano on 05-08-2023 Bedside Glucose Comment Glu2: cleaned meter [facility] Glucose Poct Glucometerson 1 Glucose [Mass/Vol] 146 mg/dL Normal [facility] Comment on above: Result Comment: [place] om Glucose Reference Range is dependent on time and content of last meal. Glucose of more than 200 mg/dL in a nonstressed, ambulatory subject supports the diagnosis of Diabetes Mellitus. PERFORMED BY: [address] [place] [address] PATHOLOGIST HEART COORDINATOR AIRAM MAST M.D. Performed By: #### G LULS #### Point of Care testing , Commemt1 Glu2: Cleaned Meter [facility] Comment on above: Result Comment: PERF ORMED BY: [address] [place] [id number] PATHOLOGIST HEART COORDINATOR AIRAM MAST M.D. Performed By: #### G LULS ####Point of Care testing, Glucose [Mass/Vol] 164 mg/dL Normal [facility] Comment on above: Result Comment: [place] om Glucose Reference Range is dependent on time and content of last meal. Glucose of more than 200 mg/dL in a nonstressed, ambulatory subject supports the diagnosis of Diabetes Mellitus. Performed By: #### G LULS ####Point of Care testing, Commemt1 Glu2: Cleaned Meter [facility] Comment on above: Result Comment: PERF ORMED BY: [address] [id number] PATHOLOGIST HEART COORDINATOR AIRAM MAST M.D. Performed By: #### G LULS ####Point of Care testing, Glucose [Mass/Vol] 238 mg/dL Normal [facility] Comment on above: Result Comment: [place] om Glucose Reference Range is dependent on time and content of last meal. Glucose of more than 200 mg/dL in a nonstressed, ambulatory subject supports the diagnosis of Diabetes Mellitus. Performed By: #### G LULS ####Point of Care testing, Glucose [Mass/Vol] 112 mg/dL Normal [facility] Comment on above: Result Comment: [place] om Glucose Reference Range is dependent on time and content of last meal. Glucose of more than 200 mg/dL in a nonstressed, ambulatory subject supports the diagnosis of Diabetes Mellitus. PERFORMED BY: [address] [place] [id number] PATHOLOGIST HEART COORDINATOR AIRAM MAST M.D. Performed By: #### G LULS ####Point of Care testing, Glucose [Mass/Vol] 67 mg/dL Normal [facility] Comment on above: Result Comment: [place] om Glucose Reference Range is dependent on time and content of last meal. Glucose of more than 200 mg/dL in a nonstressed, ambulatory subject supports the diagnosis of Diabetes Mellitus. PERFORMED BY: [address] [place] [address] PATHOLOGIST HEART COORDINATOR AIRAM MAST M.D. Performed By: #### G LULS #### Point of Care testing , Glucose Poct Glucometerson 1 Glucose [Mass/Vol] 258 mg/dL Normal [facility] Comment on above: Result Comment: [place] Glucose Reference Range is dependent on time and content of last meal. Glucose of more than 200 mg/dL in a nonstressed, ambulatory subject supports the diagnosis of Diabetes Mellitus. PERFORMED BY: [address] [place] [address] PATHOLOGIST HEART COORDINATOR AIRAM AMST M.D. Performed By: #### G LULS ####Point of Care testing, Commemt1 Glu2: Cleaned Meter Normal [facility] Comment on above: Result Comment: PERF ORMED BY: [address] [place] [id number] PATHOLOGIST HEART COORDINATOR AIRAM MAST M.D. Performed By: #### G LULS ####Point of Care testing, Glucose [Mass/Vol] 308 mg/dL Normal [facility] Comment on above: Result Comment: [place] om Glucose Reference Range is dependent on time and content of last meal. Glucose of more than 200 mg/dL in a nonstressed, ambulatory subject supports the diagnosis of Diabetes Mellitus. Performed By: #### G LULS ####Point of Care testing, Commemt1 Glu2: Cleaned Meter Normal [facility] Comment on above: Result Comment: PERF ORMED BY: [address] [place] [address] PATHOLOGIST HEART COORDINATOR AIRAM MAST M.D. Performed By: #### G LULS #### Point of Care testing , Glucose [Mass/Vol] 222 mg/dL Normal [facility] Comment on above: Result Comment: [place] om Glucose Reference Range is dependent on time and content of last meal. Glucose of more than 200 mg/dL in a nonstressed, ambulatory subject supports the diagnosis of Diabetes Mellitus. Performed By: #### G LULS #### Point of Care testing , Glucose [Mass/Vol] 114 mg/dL Normal [facility] Comment on above: Result Comment: [place] om Glucose Reference Range is dependent on time and content of last meal. Glucose of more than 200 mg/dL in a nonstressed, ambulatory subject supports the diagnosis of Diabetes Mellitus. PERFORMED BY: [facility] [address] [place] [address] PATHOLOGIST HEART COORDINATOR AIRAM MAST M.D. Performed By: #### G LULS ####Point of Care testing, Glucose Poct Glucometerson 1 Glucose [Mass/Vol] 141 mg/dL Normal [facility] Comment on above: Result Comment: [place] om Glucose Reference Range is dependent on time and content of last meal. Glucose of more than 200 mg/dL in a nonstressed, ambulatory subject supports the diagnosis of Diabetes Mellitus. PERFORMED BY: [facility] [address] [place] [address] PATHOLOGIST HEART COORDINATOR AIRAM MAST M.D. Performed By: #### G LULS ####Point of Care testing, Glucose [Mass/Vol] 153 mg/dL Normal [facility] Comment on above: Result Comment: [place] om Glucose Reference Range is dependent on time and content of last meal. Glucose of more than 200 mg/dL in a nonstressed, ambulatory subject supports the diagnosis of Diabetes Mellitus. PERFORMED BY: [address] [address] PATHOLOGIST HEART COORDINATOR AIRAM MAST M.D. Performed By: #### G LULS #### Point of Care testing , Commemt1 Glu2: Cleaned Meter Normal [facility] Comment on above: Result Comment: PERF ORMED BY: [address] [place] [address] PATHOLOGIST HEART COORDINATOR AIRAM MAST M.D. Performed By: #### G LULS ####Point of Care testing, Glucose [Mass/Vol] 224 mg/dL Normal [facility] Comment on above: Result Comment: [place] om Glucose Reference Range is dependent on time and content of last meal. Glucose of more than 200 mg/dL in a nonstressed, ambulatory subject supports the diagnosis of Diabetes Mellitus. Performed By: #### G LULS ####Point of Care testing, Glucose [Mass/Vol] 106 mg/dL Normal [facility] Comment on above: Result Comment: [place] om Glucose Reference Range is dependent on time and content of last meal. Glucose of more than 200 mg/dL in a nonstressed, ambulatory subject supports the diagnosis of Diabetes Mellitus. PERFORMED BY: [address] [place] [address] PATHOLOGIST HEART COORDINATOR AIRAM MAST M.D. Performed By: #### G LULS #### Point of Care testing , Glucose [Mass/Vol] 124 mg/dL Normal [facility] Comment on above: Result Comment: [place] Glucose Reference Range is dependent on time and content of last meal. Glucose of more than 200 mg/dL in a nonstressed, ambulatory subject supports the diagnosis of Diabetes Mellitus. PERFORMED BY: [address] [place] [address] PATHOLOGIST HEART COORDINATOR AIRAM MAST M.D. Performed By: #### G LULS #### Point of Care testing , Alanine aminotransferase [En zymatic activity/volume] in Serum or PlasmaOrdered By: Fredi Medrano on 05-04-2023 ALT [Catalytic activity/Vol] 14 U/L 7-52 [facility] Albumin [Mass/volume] in Ser um or Plasma by Bromocresol green (BCG) dye binding methoOrdered By: Fredi Medrano on 05-04-2023 Albumin BCG dye [Mass/Vol] 2.9 g/dL 3.5-5.7 [facility] Alkaline phosphatase [Enzyma tic activity/volume] in Serum or PlasmaOrdered By: Fredi Medrano on 05-04-2023 ALP [Catalytic activity/Vol] 87 U/L 34-104 [facility] Aspartate aminotransferase [ Enzymatic activity/volume] in Serum or PlasmaOrdered By: Fredi Medrano on 05-04-2023 AST [Catalytic activity/Vol] 20 U/L 13-39 [facility] Basophils Auto (Bld) [#/Vol] Ordered By: Fredi Medrano on 05-04-2023 Basophils (Bld) [#/Vol] 0.0 10*3/uL 0.0-0.2 [facility] Basophils/100 WBC Auto (Bld) Ordered By: Fredi Medrano on 05-04-2023 Basophils/100 WBC (Bld) 0.7 % . [facility] Bilirubin.total [Mass/volume ] in Serum or PlasmaOrdered By: Fredi Medrano on 05-04-2023 Bilirubin [Mass/Vol] 0.5 mg/dL 0.3-1.0 [facility] Calcium [Mass/volume] in Ser um or PlasmaOrdered By: Fredi Medrano on 05-04-2023 Calcium [Mass/Vol] 8.0 mg/dL 8.6-10.3 [facility] Carbon dioxide, total [Moles /volume] in Serum or PlasmaOrdered By: Fredi Medrano on 05-04-2023 CO2 [Moles/Vol] 28.0 mmol/L 21.0-31.0 [facility] Chloride [Moles/volume] in S jihan or PlasmaOrdered By: Fredi Medrano on 05-04-2023 Chloride [Moles/Vol] 102 mmol/L 98-107 [facility] Complete Blood Count Auto Di ffon 05-04-2023 Basophils (Bld) [#/Vol] 0.0 10*3/uL Normal 0.0-0.2 [facility] Comment on above: Result Comment: PERF ORMED BY: [facility] [place] [address] PATHOLOGIST HEART COORDINATOR AIRAM MAST M.D. Performed By: #### G LULS #### Point of Care testing , Basophils/100 WBC (Bld) 0.7 % Normal . [facility] Comment on above: Performed By: #### G LULS #### Point of Care testing , Eosinophils (Bld) [#/Vol] 0.1 10*3/uL Normal 0.0-0.45 [facility] Comment on above: Performed By: #### G LULS #### Point of Care testing , Eosinophils/100 WBC (Bld) 1.5 % Normal . [facility] Comment on above: Performed By: #### G LULS #### Point of Care testing , Erythrocyte distribution width (RBC) [Ratio] 16.8 % High 12.0-14.8 [facility] Comment on above: Performed By: #### G LULS #### Point of Care testing , Hematocrit (Bld) [Volume fraction] 29.3 % Low 38.8-50.0 [facility] Comment on above: Performed By: #### G LULS #### Point of Care testing , Hemoglobin (Bld) [Mass/Vol] 9.7 g/dL Low 13.0-17.0 [facility] Comment on above: Performed By: #### G LULS #### Point of Care testing , Lymphocytes (Bld) [#/Vol] 1.6 10*3/uL Normal 1.00-4.8 [facility] Comment on above: Performed By: #### G LULS #### Point of Care testing , Lymphocytes/100 WBC (Bld) 23.0 % Normal . [facility] Comment on above: Performed By: #### G LULS #### Point of Care testing , MCH (RBC) [Entitic mass] 27.9 pg Normal 27.5-35.2 [facility] Comment on above: Performed By: #### Aileen NATION #### Point of Care testing , MCV (RBC) [Entitic vol] 84.6 fL Normal 83.5-101 [facility] Comment on above: Performed By: #### Aileen SUMMERSLS #### Point of Care testing , Mean Corpuscular HGB Conc 33.0 g/dL Normal 32.5-35.6 [facility] Comment on above: Performed By: #### G RIOS #### Point of Care testing , Monocytes (Bld) [#/Vol] 0.7 10*3/uL Normal 0.0-0.8 [facility] Comment on above: Performed By: #### Aileen NATION #### Point of Care testing , Monocytes/100 WBC (Bld) 9.9 % Normal . [facility] Comment on above: Performed By: #### Aileen SUMMERSLS #### Point of Care testing , Neutrophils (Bld) [#/Vol] 4.6 10*3/uL Normal 1.8-7.7 [facility] Comment on above: Performed By: #### Aileen NATION #### Point of Care testing , Neutrophils/100 WBC (Bld) 64.9 % Normal . [facility] Comment on above: Performed By: #### Aileen NATION #### Point of Care testing , NRBC% 0.2 /100{WBC} Normal 0-0.5 [facility] Comment on above: Performed By: #### Aileen SUMMERSLS #### Point of Care testing , Platelet mean volume (Bld) [Entitic vol] 8.9 fL Normal 6.6-10.1 [facility] Comment on above: Performed By: #### Aileen NATION #### Point of Care testing , Platelets (Bld) [#/Vol] 218 10*3/uL Normal 150-450 [facility] Comment on above: Performed By: #### Aileen NATION #### Point of Care testing , RBC (Bld) [#/Vol] 3.46 10*6/uL Low 3.90-5.60 [facility] Comment on above: Performed By: #### Aileen NATION #### Point of Care testing , WBC (Bld) [#/Vol] 7.2 10*3/uL Normal 4.1-10.5 [facility] Comment on above: Performed By: #### Aileen NATION #### Point of Care testing , Comprehensive Metabolic Pane afbby 05-04-2023 Albumin [Mass/Vol] 2.9 g/dL Low 3.5-5.7 [facility] Comment on above: Performed By: #### Aileen NATION #### Point of Care testing , Albumin/Globulin [Mass ratio] 1.2 {ratio} Normal [facility] Comment on above: Performed By: #### Aileen NATION #### Point of Care testing , ALP [Catalytic activity/Vol] 87 U/L Normal 34-104 [facility] Comment on above: Performed By: #### Aileen NATION #### Point of Care testing , ALT [Catalytic activity/Vol] 14 U/L Normal 7-52 [facility] Comment on above: Performed By: #### Aileen NATION #### Point of Care testing , Anion gap [Moles/Vol] 8.6 mmol/L Normal 6.0-15.0 [facility] Comment on above: Performed By: #### Aileen NATION #### Point of Care testing , AST [Catalytic activity/Vol] 20 U/L Normal 13-39 [facility] Comment on above: Performed By: #### Aileen NATION #### Point of Care testing , Bilirubin [Mass/Vol] 0.5 mg/dL Normal 0.3-1.0 [facility] Comment on above: Performed By: #### Aileen NATION #### Point of Care testing , Calcium [Mass/Vol] 8.0 mg/dL Low 8.6-10.3 [facility] Comment on above: Performed By: #### Aileen NATION #### Point of Care testing , Chloride [Moles/Vol] 102 mmol/L Normal 98-107 [facility] Comment on above: Performed By: #### G LULS #### Point of Care testing , CO2 [Moles/Vol] 28.0 mmol/L Normal 21.0-31.0 [facility] Comment on above: Performed By: #### G KRISTOPHERLS #### Point of Care testing , Creatinine [Mass/Vol] 0.61 mg/dL Low 0.70-1.30 [facility] Comment on above: Performed By: #### G KRISTOPHERLS #### Point of Care testing , Creatinine Clr Calc Pharmacy 62.25 [facility] Comment on above: Performed By: #### G KRISTOPHERLS #### Point of Care testing , GFR/1.73 sq M.predicted MDRD (S/P/Bld) [Vol rate/Area] mL/min/{1.73_m2} [facility] Comment on above: Performed By: #### G KRISTOPHERLS #### Point of Care testing , Globulin (S) [Mass/Vol] 2.5 g/dL [facility] Comment on above: Performed By: #### G KRISTOPHERLS #### Point of Care testing , Glucose [Mass/Vol] 120 mg/dL High 70-100 [facility] Comment on above: Result Comment: [facility] Glucose Reference Range is dependent on time and content of last meal. Glucose of more than 200 mg/dL in a nonstressed, ambulatory subject supports the diagnosis of Diabetes Mellitus. ADA recommended reference range Performed By: #### G KRISTOPHERLS #### Point of Care testing , Potassium [Moles/Vol] 4.6 mmol/L Normal 3.5-5.1 [facility] Comment on above: Performed By: #### G KRISTOPHERLS #### Point of Care testing , Protein [Mass/Vol] 5.4 g/dL Low 6.4-8.9 [facility] Comment on above: Performed By: #### G KRISTOPHERLS #### Point of Care testing , Sodium [Moles/Vol] 134 mmol/L Low 136-145 [facility] Comment on above: Performed By: #### G KRISTOPHERLS #### Point of Care testing , Urea nitrogen [Mass/Vol] 22 mg/dL Normal 7-25 [facility] Comment on above: Performed By: #### G LULS #### Point of Care testing , Creatinine [Mass/volume] in Serum or PlasmaOrdered By: Fredi Medrano on 05-04-2023 Creatinine [Mass/Vol] 0.61 mg/dL 0.70-1.30 [facility] Eosinophils Auto (Bld) [#/Vo l]Ordered By: Fredi Medrano on 05-04-2023 Eosinophils (Bld) [#/Vol] 0.1 10*3/uL 0.0-0.45 [facility] Eosinophils/100 WBC Auto (Bl d)Ordered By: Fredi Medrano on 05-04-2023 Eosinophils/100 WBC (Bld) 1.5 % . [facility] Erythrocyte distribution wid th Auto (RBC) [Ratio]Ordered By: Fredi Medrano on 05-04-2023 Erythrocyte distribution width (RBC) [Ratio] 16.8 % 12.0-14.8 [facility] Globulin Calc (S) [Mass/Vol] Ordered By: Fredi Medrano on 05-04-2023 Globulin (S) [Mass/Vol] 2.5 g/dL [facility] Glucose Poct Glucometerson 1 Glucose [Mass/Vol] 125 mg/dL Normal [facility] Comment on above: Result Comment: [facility] Glucose Reference Range is dependent on time and content of last meal. Glucose of more than 200 mg/dL in a nonstressed, ambulatory subject supports the diagnosis of Diabetes Mellitus. PERFORMED BY: [facility] [address] [place] [address] PATHOLOGIST HEART COORDINATOR AIRAM MAST M.D. Performed By: #### G LULS ####Point of Care testing, Glucose [Mass/Vol] 210 mg/dL Normal [facility] Comment on above: Result Comment: [facility] Glucose Reference Range is dependent on time and content of last meal. Glucose of more than 200 mg/dL in a nonstressed, ambulatory subject supports the diagnosis of Diabetes Mellitus. PERFORMED BY: [facility] [address] [place] [address] PATHOLOGIST HEART COORDINATOR AIRAM MAST M.D. Performed By: #### G LULS ####Point of Care testing, Glucose [Mass/Vol] 213 mg/dL Normal [facility] Comment on above: Result Comment: [place] om Glucose Reference Range is dependent on time and content of last meal. Glucose of more than 200 mg/dL in a nonstressed, ambulatory subject supports the diagnosis of Diabetes Mellitus. PERFORMED BY: [facility] [address] [place] [address] PATHOLOGIST HEART COORDINATOR AIRAM MAST M.D. Performed By: #### G LULS ####Point of Care testing, Commemt1 Glu2: Cleaned Meter Normal [facility] Comment on above: Result Comment: PERF ORMED BY: [facility] [address] [place] [id number] PATHOLOGIST HEART COORDINATOR AIRAM MAST M.D. Performed By: #### G LULS #### Point of Care testing , Glucose [Mass/Vol] 197 mg/dL Normal [facility] Comment on above: Result Comment: [place] Glucose Reference Range is dependent on time and content of last meal. Glucose of more than 200 mg/dL in a nonstressed, ambulatory subject supports the diagnosis of Diabetes Mellitus. Performed By: #### G LULS #### Point of Care testing , Glucose [Mass/volume] in Ser um or PlasmaOrdered By: Fredi Medrano on 05-04-2023 Glucose [Mass/Vol] 120 mg/dL 70-100 [facility] Comment on above: ADA recommended refe rence rangeRandom Glucose Reference Range is dependent on time and content of last meal. Glucose of more than 200 mg/dL in a nonstressed, ambulatory subject supports the diagnosis of Diabetes Mellitus. Hematocrit Auto (Bld) [Volum e fraction]Ordered By: Fredi eMdrano on 05-04-2023 Hematocrit (Bld) [Volume fraction] 29.3 % 38.8-50.0 [facility] Hemoglobin [Mass/volume] in BloodOrdered By: Fredi Medrano on 05-04-2023 Hemoglobin (Bld) [Mass/Vol] 9.7 g/dL 13.0-17.0 [facility] Leukocytes [#/volume] correc robert for nucleated erythrocytes in Blood by Automated counOrdered By: Fredi Medrano on 05-04-2023 WBC corrected for nucl RBC Auto (Bld) [#/Vol] 7.2 10*3/uL 4.1-10.5 [facility] [facility] Lymphocytes Auto (Bld) [#/Vo l]Ordered By: Fredi Medrano on 05-04-2023 Lymphocytes (Bld) [#/Vol] 1.6 10*3/uL 1.00-4.8 [facility] Lymphocytes/100 WBC Auto (Bl d)Ordered By: Fredi Medrano on 05-04-2023 Lymphocytes/100 WBC (Bld) 23.0 % . [facility] MCH Auto (RBC) [Entitic mass ]Ordered By: Fredi Medrano on 05-04-2023 MCH (RBC) [Entitic mass] 27.9 pg 27.5-35.2 [facility] MCHC Auto (RBC) [Mass/Vol]Or dered By: Fredi Medrano on 05-04-2023 MCHC (RBC) [Mass/Vol] 33.0 g/dL 32.5-35.6 [facility] MCV Auto (RBC) [Entitic vol] Ordered By: Fredi Medrano on 05-04-2023 MCV (RBC) [Entitic vol] 84.6 fL 83.5-101 [facility] Monocytes Auto (Bld) [#/Vol] Ordered By: Fredi Medrano on 05-04-2023 Monocytes (Bld) [#/Vol] 0.7 10*3/uL 0.0-0.8 [facility] Monocytes/100 WBC Auto (Bld) Ordered By: Fredi Medrano on 05-04-2023 Monocytes/100 WBC (Bld) 9.9 % . [facility] Neutrophils Auto (Bld) [#/Vo l]Ordered By: Fredi Medrano on 05-04-2023 Neutrophils (Bld) [#/Vol] 4.6 10*3/uL 1.8-7.7 [facility] Neutrophils/100 WBC Auto (Bl d)Ordered By: Fredi Medrano on 05-04-2023 Neutrophils/100 WBC (Bld) 64.9 % . [facility] No Panel InformationOrdered By: Fredi Medrano on 05-04-2023 Estimated GFR (CKD-EPI) > 60.0 mL/Min [facility] Creatinine Clearance (Chem 62.25 [facility] Nucleated erythrocytes [Pres ence] in Blood by Automated countOrdered By: Fredi Medrano on 05-04-2023 Nucleated RBC Auto Ql (Bld) 0.2 /100{WBC} 0-0.5 [facility] Platelet mean volume Auto (B ld) [Entitic vol]Ordered By: Fredi Medrano on 05-04-2023 Platelet mean volume (Bld) [Entitic vol] 8.9 fL 6.6-10.1 [facility] Platelets Auto (Bld) [#/Vol] Ordered By: Fredi Medrano on 05-04-2023 Platelets (Bld) [#/Vol] 218 10*3/uL 150-450 [facility] Potassium [Moles/volume] in Serum or PlasmaOrdered By: Fredi Medrano on 05-04-2023 Potassium [Moles/Vol] 4.6 mmol/L 3.5-5.1 [facility] Prealbuminon 05-04-2023 Prealbumin [Mass/Vol] 10.2 mg/dL Low 17.0-34.0 [facility] Comment on above: Result Comment: PERF ORMED BY: [facility] [address] [place] [address] PATHOLOGIST HEART COORDINATOR AIRAM MAST M.D. Performed By: #### G LULS #### Point of Care testing , Prealbumin [Mass/volume] in Serum or PlasmaOrdered By: Fredi Medrano on 05-04-2023 Prealbumin [Mass/Vol] 10.2 mg/dL 17.0-34.0 [facility] Protein [Mass/volume] in Ser um or PlasmaOrdered By: Fredi Medrano on 05-04-2023 Protein [Mass/Vol] 5.4 g/dL 6.4-8.9 [facility] RBC Auto (Bld) [#/Vol]Ordere d By: Fredi Medrano on 05-04-2023 RBC (Bld) [#/Vol] 3.46 10*6/uL 3.90-5.60 [facility] Serum or plasma albumin/glob ulin mass ratioOrdered By: Fredi Medrano on 05-04-2023 Albumin/Globulin [Mass ratio] 1.2 {ratio} [facility] Serum or plasma anion gap de terminationOrdered By: Fredi Medrano on 05-04-2023 Anion gap [Moles/Vol] 8.6 mmol/L 6.0-15.0 [facility] Sodium [Moles/volume] in Ser um or PlasmaOrdered By: Fredi Medrano on 05-04-2023 Sodium [Moles/Vol] 134 mmol/L 136-145 [facility] Urea nitrogen [Mass/volume] in Serum or PlasmaOrdered By: Fredi Medrano on 05-04-2023 Urea nitrogen [Mass/Vol] 22 mg/dL 7-25 [facility] WBC Auto (Bld) [#/Vol]Ordere d By: Fredi Medrano on 05-04-2023 WBC (Bld) [#/Vol] 7.2 10*3/uL 4.1-10.5 [facility] Cholesterol [Mass/volume] in Serum or PlasmaOrdered By: Anat Perez on 05-03-2023 Cholesterol [Mass/Vol] 98 mg/dL 140-200 [facility] Comment on above: Chol less than 200 m g/dl low riskChol 201-239 mg/dl borderline riskChol 240 mg/dl and greater high risk Cholesterol in LDL Calc [Mas s/Vol]Ordered By: Anat Perez on 05-03-2023 Cholesterol in LDL [Mass/Vol] 46 mg/dL 0-100 [facility] Comment on above: LDL ATP III CLASSIFI CATIONLDL less than 100 mg/dL OptimalLDL 100-129 mg/dL Near or above optimalLDL 130-159 mg/dL Borderline highLDL 160-189 mg/dL HighLDL greater than 189 mg/dL Very high Cholesterol in VLDL Calc [Ma ss/Vol]Ordered By: Anat Perez on 05-03-2023 Cholesterol in VLDL [Mass/Vol] 12 mg/dL [facility] Glucose Glucometer (BldC) [M ass/Vol]Ordered By: Humberto Diaz on 05-03-2023 Glucose [Mass/Vol] 388 mg/dL [facility] Comment on above: Random Glucose Refer ence Range is dependent on time and content of last meal. Glucose of more than 200 mg/dL in a nonstressed, ambulatory subject supports the diagnosis of Diabetes Mellitus. Glucose Poct Glucometerson 1 Glucose [Mass/Vol] 385 mg/dL Normal [facility] Comment on above: Result Comment: [place] om Glucose Reference Range is dependent on time and content of last meal. Glucose of more than 200 mg/dL in a nonstressed, ambulatory subject supports the diagnosis of Diabetes Mellitus. PERFORMED BY: [facility] [address] [facility] [place] [address] PATHOLOGIST HEART COORDINATOR AIRAM MAST M.D. Performed By: #### G LULS ####Point of Care testing, Glucose [Mass/Vol] 379 mg/dL Normal [facility] Comment on above: Result Comment: [place] om Glucose Reference Range is dependent on time and content of last meal. Glucose of more than 200 mg/dL in a nonstressed, ambulatory subject supports the diagnosis of Diabetes Mellitus. PERFORMED BY: [facility] [address] [facility] [place] [address] PATHOLOGIST HEART COORDINATOR AIRAM MAST M.D. Performed By: #### G LULS ####Point of Care testing, Glucose [Mass/Vol] 388 mg/dL Normal [facility] Comment on above: Result Comment: [place] om Glucose Reference Range is dependent on time and content of last meal. Glucose of more than 200 mg/dL in a nonstressed, ambulatory subject supports the diagnosis of Diabetes Mellitus. PERFORMED BY: [facility] [address] [facility] [place] [id number] PATHOLOGIST HEART COORDINATOR AIRAM MAST M.D. Performed By: #### G LULS #### Point of Care testing , Glucose [Mass/Vol] 310 mg/dL Normal [facility] Comment on above: Result Comment: [facility] Glucose Reference Range is dependent on time and content of last meal. Glucose of more than 200 mg/dL in a nonstressed, ambulatory subject supports the diagnosis of Diabetes Mellitus. PERFORMED BY: [facility] [address] [place] [id number] PATHOLOGIST HEART COORDINATOR AIRAM MAST M.D. Performed By: #### G LUMARYA #### Point of Care testing , Lipid Panelon 05-03-2023 Cholesterol [Mass/Vol] 98 mg/dL Low 140-200 [facility] Comment on above: Result Comment: Chol less than 200 mg/dl low risk Chol 201-239 mg/dl borderline risk Chol 240 mg/dl and greater high risk Performed By: #### L IPID ####[facility] [id number] [place] [id number] [facility] Cholesterol in HDL [Mass/Vol] 39 mg/dL Normal 23-92 [facility] Comment on above: Result Comment: HDL CHOL ATP-III CLASSIFICATION Cardiovascular Risk HDL > or equal to 60 mg/dL LOW HDL < 40 mg/dL HIGH Performed By: #### L IPID ####[address] [address] [facility] Cholesterol.total/Cho lesterol in HDL [Mass ratio] 2.5 {ratio} Normal <5.0 [facility] Comment on above: Result Comment: PERF ORMED BY: [facility] [address] [place] [id number] PATHOLOGIST HEART COORDINATOR AIRAM MAST M.D. Performed By: #### L IPID ####[facility] [id number] [place] [address] [place] LDL Cholesterol,Calculate d 46 mg/dL Normal 0-100 [facility] Comment on above: Result Comment: LDL ATP III CLASSIFICATION LDL less than 100 mg/dL Optimal LDL 100-129 mg/dL Near or above optimal LDL 130-159 mg/dL Borderline high LDL 160-189 mg/dL High LDL greater than 189 mg/dL Very high Performed By: #### L IPID ####[facility] [id number] [address] Triglyceride w/Reflex 64 mg/dL Normal 0-149 [facility] Comment on above: Result Comment: TRIG ATP III CLASSIFICATION TRIG less than 150 mg/dL Normal TRIG 150-199 mg/dL Borderline high TRIG 200-500 mg/dL High TRIG greater than 500 mg/dL Very high Standard traceable to the Center for Disease Conrtrol and Prevention (CDC) test method. Performed By: #### L IPID ####[facility] [id number] VLDL CHOLESTEROL 12 mg/dL Normal [facility] Comment on above: Performed By: #### L IPID ####[facility] [id number] [address] Serum or plasma high density lipoprotein (HDL) cholesterol measurementOrdered By: Anat Perez on 05-03-2023 Cholesterol in HDL [Mass/Vol] 39 mg/dL [facility] Comment on above: HDL CHOL ATP-III CLA SSIFICATION Cardiovascular RiskHDL > or equal to 60 mg/dL LOWHDL < 40 mg/dL HIGH Serum or plasma total choles terol/high density lipoprotein (HDL) cholesterol mass ratOrdered By: Anat Perez on 05-03-2023 Cholesterol.total/Cho lesterol in HDL [Mass ratio] 2.5 {ratio} <5.0 [facility] Triglyceride [Mass/volume] i n Serum or PlasmaOrdered By: Anat Perez on 05-03-2023 Triglyceride [Mass/Vol] 64 mg/dL 0-149 [facility] Comment on above: TRIG ATP III CLASSIF ICATIONTRIG less than 150 mg/dL NormalTRIG 150-199 mg/dL Borderline highTRIG 200-500 mg/dL High TRIG greater than 500 mg/dL Very highStandard traceable to the Center for Disease Conrtrol and Prevention (CDC) test method. Basic Metabolic Panelon 04-12 Anion gap [Moles/Vol] 8.1 mmol/L Normal 6.0-15.0 [facility] Comment on above: Performed By: #### B MP, CBC, LIPID ####[place] [id number] [address] Calcium [Mass/Vol] 8.0 mg/dL Low 8.6-10.3 [facility] Comment on above: Performed By: #### B MP, CBC, LIPID ####[place] [id number] [facility] Chloride [Moles/Vol] 97 mmol/L Low 98-107 [facility] Comment on above: Performed By: #### B MP, CBC, LIPID ####[place] [id number] [address] CO2 [Moles/Vol] 30.1 mmol/L Normal 21.0-31.0 [facility] Comment on above: Performed By: #### B MP, CBC, LIPID ####[address] Creatinine [Mass/Vol] 0.86 mg/dL Normal 0.70-1.30 [facility] Comment on above: Performed By: #### B MP, CBC, LIPID ####[address] Creatinine Clr Calc Pharmacy 59.22 [facility] Comment on above: Performed By: #### B MP, CBC, LIPID ####[address] GFR/1.73 sq M.predicted MDRD (S/P/Bld) [Vol rate/Area] mL/min/{1.73_m2} [facility] Comment on above: Performed By: #### B MP, CBC, LIPID ####[address] Glucose [Mass/Vol] 87 mg/dL Normal 70-100 [facility] Comment on above: Result Comment: [facility] Glucose Reference Range is dependent on time and content of last meal. Glucose of more than 200 mg/dL in a nonstressed, ambulatory subject supports the diagnosis of Diabetes Mellitus. ADA recommended reference range Performed By: #### B MP, CBC, LIPID ####[facility] [id number] Potassium [Moles/Vol] 4.2 mmol/L Normal 3.5-5.1 [facility] Comment on above: Performed By: #### B MP, CBC, LIPID ####[facility] [id number] [address] Sodium [Moles/Vol] 131 mmol/L Low 136-145 [facility] Comment on above: Performed By: #### B MP, CBC, LIPID ####[facility] [id number] [address] Urea nitrogen [Mass/Vol] 21 mg/dL Normal 7-25 [facility] Comment on above: Performed By: #### B MP, CBC, LIPID ####[facility] [id number] Basophils Auto (Bld) [#/Vol] Ordered By: Sushant Cordon on 05-02-2023 Basophils (Bld) [#/Vol] 0.0 10*3/uL 0.0-0.2 [facility] Basophils/100 WBC Auto (Bld) Ordered By: Sushant Cordon on 05-02-2023 Basophils/100 WBC (Bld) 0.1 % . [facility] Calcium [Mass/volume] in Ser um or PlasmaOrdered By: Sushant Cordon on 05-02-2023 Calcium [Mass/Vol] 8.0 mg/dL 8.6-10.3 [facility] Carbon dioxide, total [Moles /volume] in Serum or PlasmaOrdered By: Sushant Cordon on 05-02-2023 CO2 [Moles/Vol] 30.1 mmol/L 21.0-31.0 [facility] Chloride [Moles/volume] in S jihan or PlasmaOrdered By: Sushant Cordon on 05-02-2023 Chloride [Moles/Vol] 97 mmol/L 98-107 [facility] Complete Blood Count Auto Di ffon 05-02-2023 Basophils (Bld) [#/Vol] 0.0 10*3/uL Normal 0.0-0.2 [facility] Comment on above: Result Comment: PERF ORMED BY: [facility] [address] [place] [address] PATHOLOGIST HEART COORDINATOR AIRAM MAST M.D. Performed By: #### B MP, CBC, LIPID ####[place] [id number] [address] Basophils/100 WBC (Bld) 0.1 % Normal . [facility] Comment on above: Performed By: #### B MP, CBC, LIPID ####[place] [id number] [address] Eosinophils (Bld) [#/Vol] 0.1 10*3/uL Normal 0.0-0.45 [facility] Comment on above: Performed By: #### B MP, CBC, LIPID ####[address] Eosinophils/100 WBC (Bld) 0.8 % Normal . [facility] Comment on above: Performed By: #### B MP, CBC, LIPID ####[address] Erythrocyte distribution width (RBC) [Ratio] 17.0 % High 12.0-14.8 [facility] Comment on above: Performed By: #### B MP, CBC, LIPID ####[address] Hematocrit (Bld) [Volume fraction] 27.8 % Low 38.8-50.0 [facility] Comment on above: Performed By: #### B MP, CBC, LIPID ####[place] [id number] [facility] Hemoglobin (Bld) [Mass/Vol] 9.3 g/dL Low 13.0-17.0 [facility] Comment on above: Performed By: #### B MP, CBC, LIPID ####[place] [id number] [address] Lymphocytes (Bld) [#/Vol] 1.2 10*3/uL Normal 1.00-4.8 [facility] Comment on above: Performed By: #### B MP, CBC, LIPID ####[place] [id number] [facility] Lymphocytes/100 WBC (Bld) 13.7 % Normal . [facility] Comment on above: Performed By: #### B MP, CBC, LIPID ####[address] MCH (RBC) [Entitic mass] 28.3 pg Normal 27.5-35.2 [facility] Comment on above: Performed By: #### B MP, CBC, LIPID ####[address] MCV (RBC) [Entitic vol] 84.2 fL Normal 83.5-101 [facility] Comment on above: Performed By: #### B MP, CBC, LIPID ####[address] Mean Corpuscular HGB Conc 33.6 g/dL Normal 32.5-35.6 [facility] Comment on above: Performed By: #### B MP, CBC, LIPID ####[address] Monocytes (Bld) [#/Vol] 1.2 10*3/uL High 0.0-0.8 [facility] Comment on above: Performed By: #### B MP, CBC, LIPID ####[address] Monocytes/100 WBC (Bld) 13.5 % Normal . [facility] Comment on above: Performed By: #### B MP, CBC, LIPID ####[address] Neutrophils (Bld) [#/Vol] 6.2 10*3/uL Normal 1.8-7.7 [facility] Comment on above: Performed By: #### B MP, CBC, LIPID ####[place] [id number] [facility] Neutrophils/100 WBC (Bld) 71.9 % Normal . [facility] Comment on above: Performed By: #### B MP, CBC, LIPID ####[place] [id number] [place] [id number] [facility] NRBC% 0.0 /100{WBC} Normal 0-0.5 [facility] Comment on above: Performed By: #### B MP, CBC, LIPID ####[place] [id number] [place] [id number] [facility] Platelet mean volume (Bld) [Entitic vol] 9.3 fL Normal 6.6-10.1 [facility] Comment on above: Performed By: #### B MP, CBC, LIPID ####[address] Platelets (Bld) [#/Vol] 168 10*3/uL Normal 150-450 [facility] Comment on above: Performed By: #### B MP, CBC, LIPID ####[address] RBC (Bld) [#/Vol] 3.29 10*6/uL Low 3.90-5.60 [facility] Comment on above: Performed By: #### B MP, CBC, LIPID ####[place] [id number] [facility] WBC (Bld) [#/Vol] 8.6 10*3/uL Normal 4.1-10.5 [facility] Comment on above: Performed By: #### B MP, CBC, LIPID ####[address] Creatinine [Mass/volume] in Serum or PlasmaOrdered By: Sushant Cordon on 05-02-2023 Creatinine [Mass/Vol] 0.86 mg/dL 0.70-1.30 [facility] Eosinophils Auto (Bld) [#/Vo l]Ordered By: Sushant Cordon on 05-02-2023 Eosinophils (Bld) [#/Vol] 0.1 10*3/uL 0.0-0.45 [facility] Eosinophils/100 WBC Auto (Bl d)Ordered By: Sushant Cordon on 05-02-2023 Eosinophils/100 WBC (Bld) 0.8 % . [facility] Erythrocyte distribution wid th Auto (RBC) [Ratio]Ordered By: Sushant Cordon on 05-02-2023 Erythrocyte distribution width (RBC) [Ratio] 17.0 % 12.0-14.8 [facility] Glucose Poct Glucometerson 1 Glucose [Mass/Vol] 323 mg/dL Normal [facility] Comment on above: Result Comment: [place] Glucose Reference Range is dependent on time and content of last meal. Glucose of more than 200 mg/dL in a nonstressed, ambulatory subject supports the diagnosis of Diabetes Mellitus. PERFORMED BY: [address] [place] [id number] PATHOLOGIST HEART COORDINATOR AIRAM MAST M.D. Performed By: #### G LULS #### Point of Care testing , Commemt1 Normal [facility] Comment on above: Result Comment: Glu2 : WILL NOTIFY DR/RN PERFORMED BY: [address] [place] [address] PATHOLOGIST HEART COORDINATOR AIRAM MAST M.D. Performed By: #### G LULS ####Point of Care testing, Glucose [Mass/Vol] 427 mg/dL Off scale [facility] Comment on above: Result Comment: [place] Glucose Reference Range is dependent on time and content of last meal. Glucose of more than 200 mg/dL in a nonstressed, ambulatory subject supports the diagnosis of Diabetes Mellitus. Performed By: #### G LULS ####Point of Care testing, Glucose [Mass/Vol] 376 mg/dL Normal [facility] Comment on above: Result Comment: [place] Glucose Reference Range is dependent on time and content of last meal. Glucose of more than 200 mg/dL in a nonstressed, ambulatory subject supports the diagnosis of Diabetes Mellitus. PERFORMED BY: [facility] [address] [place] [address] PATHOLOGIST HEART COORDINATOR AIRAM MAST M.D. Performed By: #### G LULS ####Point of Care testing, Glucose [Mass/Vol] 73 mg/dL Normal [facility] Comment on above: Result Comment: [place] Glucose Reference Range is dependent on time and content of last meal. Glucose of more than 200 mg/dL in a nonstressed, ambulatory subject supports the diagnosis of Diabetes Mellitus. PERFORMED BY: [facility] [address] [place] [address] PATHOLOGIST HEART COORDINATOR AIRAM MAST M.D. Performed By: #### G LULS #### Point of Care testing , Glucose [Mass/Vol] 92 mg/dL Normal [facility] Comment on above: Result Comment: [facility] Glucose Reference Range is dependent on time and content of last meal. Glucose of more than 200 mg/dL in a nonstressed, ambulatory subject supports the diagnosis of Diabetes Mellitus. PERFORMED BY: [facility] [address] [place] [address] PATHOLOGIST HEART COORDINATOR AIRAM MAST M.D. Performed By: #### G LULS ####Point of Care testing, Glucose [Mass/volume] in Ser um or PlasmaOrdered By: Sushant Cordon on 05-02-2023 Glucose [Mass/Vol] 87 mg/dL 70-100 [facility] Comment on above: ADA recommended refe rence rangeRandom Glucose Reference Range is dependent on time and content of last meal. Glucose of more than 200 mg/dL in a nonstressed, ambulatory subject supports the diagnosis of Diabetes Mellitus. Hematocrit Auto (Bld) [Volum e fraction]Ordered By: Sushant Cordon on 05-02-2023 Hematocrit (Bld) [Volume fraction] 27.8 % 38.8-50.0 [facility] Hemoglobin [Mass/volume] in BloodOrdered By: Sushant Cordon on 10-22-2023 Hemoglobin (Bld) [Mass/Vol] 9.3 g/dL 13.0-17.0 [facility] Leukocytes [#/volume] correc robert for nucleated erythrocytes in Blood by Automated counOrdered By: Sushant Cordon on 05-02-2023 WBC corrected for nucl RBC Auto (Bld) [#/Vol] 8.6 10*3/uL 4.1-10.5 [facility] Lipid Panelon 05-02-2023 Cholesterol [Mass/Vol] 97 mg/dL Low 140-200 [facility] Comment on above: Result Comment: Chol less than 200 mg/dl low risk Chol 201-239 mg/dl borderline risk Chol 240 mg/dl and greater high risk Performed By: #### B MP, CBC, LIPID ####[place] [id number] [place] [id number] [facility] Cholesterol in HDL [Mass/Vol] 43 mg/dL Normal 23-92 [facility] Comment on above: Result Comment: HDL CHOL ATP-III CLASSIFICATION Cardiovascular Risk HDL > or equal to 60 mg/dL LOW HDL < 40 mg/dL HIGH Performed By: #### B MP, CBC, LIPID ####[place] [address] [place] [address] [facility] Cholesterol.total/Cho lesterol in HDL [Mass ratio] 2.3 {ratio} Normal <5.0 [facility] Comment on above: Result Comment: PERF ORMED BY: [facility] [address] [place] [id number] PATHOLOGIST HEART COORDINATOR AIRAM MAST M.D. Performed By: #### B MP, CBC, LIPID ####[place] [address] [place] [address] [facility] LDL Cholesterol,Calculate d 43 mg/dL Normal 0-100 [facility] Comment on above: Result Comment: LDL ATP III CLASSIFICATION LDL less than 100 mg/dL Optimal LDL 100-129 mg/dL Near or above optimal LDL 130-159 mg/dL Borderline high LDL 160-189 mg/dL High LDL greater than 189 mg/dL Very high Performed By: #### B MP, CBC, LIPID ####[place] [id number] [place] [id number] [place] Triglyceride w/Reflex 53 mg/dL Normal 0-149 [facility] Comment on above: Result Comment: TRIG ATP III CLASSIFICATION TRIG less than 150 mg/dL Normal TRIG 150-199 mg/dL Borderline high TRIG 200-500 mg/dL High TRIG greater than 500 mg/dL Very high Standard traceable to the Center for Disease Conrtrol and Prevention (CDC) test method. Performed By: #### B MP, CBC, LIPID ####[facility] [id number] [address] VLDL CHOLESTEROL 10 mg/dL Normal [facility] Comment on above: Performed By: #### B MP, CBC, LIPID ####[facility] [id number] Lymphocytes Auto (Bld) [#/Vo l]Ordered By: Sushant Cordon on 05-02-2023 Lymphocytes (Bld) [#/Vol] 1.2 10*3/uL 1.00-4.8 [facility] Lymphocytes/100 WBC Auto (Bl d)Ordered By: Sushant Cordon on 05-02-2023 Lymphocytes/100 WBC (Bld) 13.7 % . [facility] MCH Auto (RBC) [Entitic mass ]Ordered By: Sushant Cordon on 05-02-2023 MCH (RBC) [Entitic mass] 28.3 pg 27.5-35.2 [facility] MCHC Auto (RBC) [Mass/Vol]Or dered By: Sushant Cordon on 05-02-2023 MCHC (RBC) [Mass/Vol] 33.6 g/dL 32.5-35.6 [facility] MCV Auto (RBC) [Entitic vol] Ordered By: Sushant Cordon on 05-02-2023 MCV (RBC) [Entitic vol] 84.2 fL 83.5-101 [facility] Monocytes Auto (Bld) [#/Vol] Ordered By: Sushant Cordon on 05-02-2023 Monocytes (Bld) [#/Vol] 1.2 10*3/uL 0.0-0.8 [facility] Monocytes/100 WBC Auto (Bld) Ordered By: Sushant Cordon on 05-02-2023 Monocytes/100 WBC (Bld) 13.5 % . [facility] Neutrophils Auto (Bld) [#/Vo l]Ordered By: Sushant Cordon on 05-02-2023 Neutrophils (Bld) [#/Vol] 6.2 10*3/uL 1.8-7.7 [facility] Neutrophils/100 WBC Auto (Bl d)Ordered By: Sushant Cordon on 05-02-2023 Neutrophils/100 WBC (Bld) 71.9 % . [facility] No Panel InformationOrdered By: Sushant Cordon on 05-02-2023 Bedside Glucose Comment See comment [facility] Comment on above: Glu2: WILL NOTIFY DR /RN Estimated GFR (CKD-EPI) > 60.0 mL/Min [facility]acy Creatinine Clearance (Chem 59.22 [facility] Nucleated erythrocytes [Pres ence] in Blood by Automated countOrdered By: Sushant Cordon on 05-02-2023 Nucleated RBC Auto Ql (Bld) 0.0 /100{WBC} 0-0.5 [facility] Platelet mean volume Auto (B ld) [Entitic vol]Ordered By: Sushant Cordon on 05-02-2023 Platelet mean volume (Bld) [Entitic vol] 9.3 fL 6.6-10.1 [facility] Platelets Auto (Bld) [#/Vol] Ordered By: Sushant Cordon on 05-02-2023 Platelets (Bld) [#/Vol] 168 10*3/uL 150-450 [facility] Potassium [Moles/volume] in Serum or PlasmaOrdered By: Sushant Cordon on 05-02-2023 Potassium [Moles/Vol] 4.2 mmol/L 3.5-5.1 [facility] RBC Auto (Bld) [#/Vol]Ordere d By: Sushant Cordon on 05-02-2023 RBC (Bld) [#/Vol] 3.29 10*6/uL 3.90-5.60 [facility] Serum or plasma anion gap de terminationOrdered By: Sushant Cordon on 05-02-2023 Anion gap [Moles/Vol] 8.1 mmol/L 6.0-15.0 [facility] Sodium [Moles/volume] in Ser um or PlasmaOrdered By: Sushant Cordon on 05-02-2023 Sodium [Moles/Vol] 131 mmol/L 136-145 [facility] Urea nitrogen [Mass/volume] in Serum or PlasmaOrdered By: Sushant Cordon on 05-02-2023 Urea nitrogen [Mass/Vol] 21 mg/dL - [facility] WBC Auto (Bld) [#/Vol]Ordere d By: Sushant Cordon on 05-02-2023 WBC (Bld) [#/Vol] 8.6 10*3/uL 4.1-10.5 [facility] Basic Metabolic Panelon 10 Anion gap [Moles/Vol] 8.6 mmol/L Normal 6.0-15.0 [facility] Comment on above: Performed By: #### C BC, BMP, LIPID ####[place] [id number] [address] Calcium [Mass/Vol] 8.0 mg/dL Low 8.6-10.3 [facility] Comment on above: Performed By: #### C BC, BMP, LIPID ####[place] [address] [place] [id number] [facility] Chloride [Moles/Vol] 97 mmol/L Low 98-107 [facility] Comment on above: Performed By: #### C BC, BMP, LIPID ####[facility] [place] [address] [facility] CO2 [Moles/Vol] 32.9 mmol/L High 21.0-31.0 [facility] Comment on above: Performed By: #### C BC, BMP, LIPID ####[facility] [place] [id number] [facility] Creatinine [Mass/Vol] 0.77 mg/dL Normal 0.70-1.30 [facility] Comment on above: Performed By: #### C SHARAN WALKER, LIPID ####[place] [address] [place] [id number] [facility] Creatinine Clr Calc Pharmacy 63.00 [facility] Comment on above: Performed By: #### C DENISE BMP, LIPID ####[place] [id number] GFR/1.73 sq M.predicted MDRD (S/P/Bld) [Vol rate/Area] mL/min/{1.73_m2} [facility] Comment on above: Performed By: #### C SHARAN WALKER, LIPID ####[place] [id number] Glucose [Mass/Vol] 86 mg/dL Normal 70-100 [facility] Comment on above: Result Comment: [place] Glucose Reference Range is dependent on time and content of last meal. Glucose of more than 200 mg/dL in a nonstressed, ambulatory subject supports the diagnosis of Diabetes Mellitus. ADA recommended reference range Performed By: #### C SHARAN WALKER, LIPID ####[address] Potassium [Moles/Vol] 4.5 mmol/L Normal 3.5-5.1 [facility] Comment on above: Performed By: #### C DENISE BMP, LIPID ####[address] Sodium [Moles/Vol] 134 mmol/L Low 136-145 [facility] Comment on above: Performed By: #### C DENISE BMP, LIPID ####[place] [address] [place] [id number] [facility] Urea nitrogen [Mass/Vol] 17 mg/dL Normal 7-25 [facility] Comment on above: Performed By: #### C BC BMP, LIPID ####[place] [id number] [facility] Complete Blood Count Auto Di ffon 05-01-2023 Basophils (Bld) [#/Vol] 0.0 10*3/uL Normal 0.0-0.2 [facility] Comment on above: Result Comment: PERF ORMED BY: [facility] [address] [place] [address] PATHOLOGIST HEART COORDINATOR AIRAM MAST M.D. Performed By: #### C BC, BMP, LIPID ####[address] Basophils/100 WBC (Bld) 0.3 % Normal . [facility] Comment on above: Performed By: #### C BC, BMP, LIPID ####[address] Eosinophils (Bld) [#/Vol] 0.0 10*3/uL Normal 0.0-0.45 [facility] Comment on above: Performed By: #### C BC, BMP, LIPID ####[address] Eosinophils/100 WBC (Bld) 0.6 % Normal . [facility] Comment on above: Performed By: #### C BC, BMP, LIPID ####[address] Erythrocyte distribution width (RBC) [Ratio] 17.7 % High 12.0-14.8 [facility] Comment on above: Performed By: #### C BC, BMP, LIPID ####[address] Hematocrit (Bld) [Volume fraction] 29.9 % Low 38.8-50.0 [facility] Comment on above: Performed By: #### C BC, BMP, LIPID ####[address] Hemoglobin (Bld) [Mass/Vol] 9.8 g/dL Low 13.0-17.0 [facility] Comment on above: Performed By: #### C BC, BMP, LIPID ####[address] Lymphocytes (Bld) [#/Vol] 1.5 10*3/uL Normal 1.00-4.8 [facility] Comment on above: Performed By: #### C BC, BMP, LIPID ####[address] Lymphocytes/100 WBC (Bld) 16.8 % Normal . [facility] Comment on above: Performed By: #### C BC, BMP, LIPID ####[address] MCH (RBC) [Entitic mass] 27.8 pg Normal 27.5-35.2 [facility] Comment on above: Performed By: #### C BC, BMP, LIPID ####[address] MCV (RBC) [Entitic vol] 84.5 fL Normal 83.5-101 [facility] Comment on above: Performed By: #### C BC, BMP, LIPID ####[address] Mean Corpuscular HGB Conc 32.9 g/dL Normal 32.5-35.6 [facility] Comment on above: Performed By: #### C BC, BMP, LIPID ####[address] Monocytes (Bld) [#/Vol] 1.2 10*3/uL High 0.0-0.8 [facility] Comment on above: Performed By: #### C BC, BMP, LIPID ####[address] Monocytes/100 WBC (Bld) 14.1 % Normal . [facility] Comment on above: Performed By: #### C BC, BMP, LIPID ####[address] Neutrophils (Bld) [#/Vol] 6.0 10*3/uL Normal 1.8-7.7 [facility] Comment on above: Performed By: #### C BC, BMP, LIPID ####[place] [address] [place] [address] [facility] Neutrophils/100 WBC (Bld) 68.2 % Normal . [facility] Comment on above: Performed By: #### C BC, BMP, LIPID ####[facility] [place] [address] [facility] NRBC% 0.1 /100{WBC} Normal 0-0.5 [facility] Comment on above: Performed By: #### C BC, BMP, LIPID ####[place] [address] [place] [address] [facility] Platelet mean volume (Bld) [Entitic vol] 9.5 fL Normal 6.6-10.1 [facility] Comment on above: Performed By: #### C BC, BMP, LIPID ####[place] [address] [place] [address] [facility] Platelets (Bld) [#/Vol] 156 10*3/uL Normal 150-450 [facility] Comment on above: Performed By: #### C BC, BMP, LIPID ####[place] [address] [place] [address] [facility] RBC (Bld) [#/Vol] 3.54 10*6/uL Low 3.90-5.60 [facility] Comment on above: Performed By: #### C BC, BMP, LIPID ####[place] [address] [place] [address] [facility] WBC (Bld) [#/Vol] 8.8 10*3/uL Normal 4.1-10.5 [facility] Comment on above: Performed By: #### C BC, BMP, LIPID ####[address] [address] [facility] Glucose Poct Glucometerson 1 Commemt1 Glu2: Cleaned Meter Normal [facility] Comment on above: Result Comment: PERF ORMED BY: [facility] [address] [place] [address] PATHOLOGIST HEART COORDINATOR AIRAM MAST M.D. Performed By: #### G LULS #### Point of Care testing , Glucose [Mass/Vol] 340 mg/dL Normal [facility] Comment on above: Result Comment: [place] om Glucose Reference Range is dependent on time and content of last meal. Glucose of more than 200 mg/dL in a nonstressed, ambulatory subject supports the diagnosis of Diabetes Mellitus. Performed By: #### G LULS #### Point of Care testing , Glucose [Mass/Vol] 194 mg/dL Normal [facility] Comment on above: Result Comment: [place] om Glucose Reference Range is dependent on time and content of last meal. Glucose of more than 200 mg/dL in a nonstressed, ambulatory subject supports the diagnosis of Diabetes Mellitus. PERFORMED BY: [place] [address] PATHOLOGIST HEART COORDINATOR AIRAM MAST M.D. Performed By: #### G LULS #### Point of Care testing , Commemt1 Glu2: Cleaned Meter [facility] Comment on above: Result Comment: PERF ORMED BY: [place] [address] PATHOLOGIST HEART COORDINATOR AIRAM MAST M.D. Performed By: #### G LULS ####Point of Care testing, Glucose [Mass/Vol] 131 mg/dL Normal [facility] Comment on above: Result Comment: [place] om Glucose Reference Range is dependent on time and content of last meal. Glucose of more than 200 mg/dL in a nonstressed, ambulatory subject supports the diagnosis of Diabetes Mellitus. Performed By: #### G LULS ####Point of Care testing, Commemt1 Glu2: Cleaned Meter [facility] Comment on above: Result Comment: PERF ORMED BY: [place] [address] PATHOLOGIST HEART COORDINATOR AIRAM MAST M.D. Performed By: #### G LULS ####Point of Care testing, Glucose [Mass/Vol] 85 mg/dL Normal [facility] Comment on above: Result Comment: [place] om Glucose Reference Range is dependent on time and content of last meal. Glucose of more than 200 mg/dL in a nonstressed, ambulatory subject supports the diagnosis of Diabetes Mellitus. Performed By: #### G LULS ####Point of Care testing, Glucose [Mass/Vol] 295 mg/dL Normal [facility] Comment on above: Result Comment: [facility] Glucose Reference Range is dependent on time and content of last meal. Glucose of more than 200 mg/dL in a nonstressed, ambulatory subject supports the diagnosis of Diabetes Mellitus. PERFORMED BY: [facility] [address] [place] [id number] PATHOLOGIST HEART COORDINATOR AIRAM MAST M.D. Performed By: #### G RIOS ####Point of Care testing, Lipid Panelon 05-01-2023 Cholesterol [Mass/Vol] 107 mg/dL Low 140-200 [facility] Comment on above: Result Comment: Chol less than 200 mg/dl low risk Chol 201-239 mg/dl borderline risk Chol 240 mg/dl and greater high risk Performed By: #### C BC, BMP, LIPID ####[place] [id number] [facility] Cholesterol in HDL [Mass/Vol] 51 mg/dL Normal 23-92 [facility] Comment on above: Result Comment: HDL CHOL ATP-III CLASSIFICATION Cardiovascular Risk HDL > or equal to 60 mg/dL LOW HDL < 40 mg/dL HIGH Performed By: #### C BC, BMP, LIPID ####[address] [address] [facility] Cholesterol.total/Cho lesterol in HDL [Mass ratio] 2.1 {ratio} Normal <5.0 [facility] Comment on above: Result Comment: PERF ORMED BY: [facility] [address] [place] [address] PATHOLOGIST HEART COORDINATOR AIRAM MAST M.D. Performed By: #### C BC, BMP, LIPID ####[place] [address] [place] [address] [facility] LDL Cholesterol,Calculate d 50 mg/dL Normal 0-100 [facility] Comment on above: Result Comment: LDL ATP III CLASSIFICATION LDL less than 100 mg/dL Optimal LDL 100-129 mg/dL Near or above optimal LDL 130-159 mg/dL Borderline high LDL 160-189 mg/dL High LDL greater than 189 mg/dL Very high Performed By: #### C BC BMP, LIPID ####[facility] [place] [id number] [facility] Triglyceride w/Reflex 30 mg/dL Normal 0-149 [facility] Comment on above: Result Comment: TRIG ATP III CLASSIFICATION TRIG less than 150 mg/dL Normal TRIG 150-199 mg/dL Borderline high TRIG 200-500 mg/dL High TRIG greater than 500 mg/dL Very high Standard traceable to the Center for Disease Conrtrol and Prevention (CDC) test method. Performed By: #### C DENISE BMP, LIPID ####[place] [address] VLDL CHOLESTEROL 6 mg/dL Normal [facility] Comment on above: Performed By: #### C SHARAN WALKER, LIPID ####[place] [address] Activated partial thrombopla stin time (aPTT) in platelet poor plasma by coagulation aOrdered By: Anat Perez on 04-30-2023 aPTT Coag (PPP) [Time] 30.6 s 25.1-36.5 [facility] Comment on above: A hematocrit value g reater than 55% may lead to inaccurate results in coagulation testing. Patients having hematocrit values >55% require a special collection tube for coagulation studies. Please contact the laboratory at [phone] for redraw instructions. B-Type Natriuretic Peptideon 04-30-2023 Natriuretic peptide B (Bld) [Mass/Vol] 523.0 pg/mL [facility] 5-100 [facility] Comment on above: Result Comment: PERF ORMED BY: [facility] [address] [place] [address] PATHOLOGIST HEART COORDINATOR AIRAM MAST M.D. Performed By: #### B REGISTERED NURSE MATERNAL CHILD ####[place] [address] [place] [id number] [facility] Natriuretic peptide B (Bld) [Mass/Vol] 630.0 pg/mL High 5-100 [facility] Comment on above: Result Comment: PERF ORMED BY: [facility] [address] [place] [address] PATHOLOGIST HEART COORDINATOR AIRAM MAST M.D. Performed By: #### B REGISTERED NURSE MATERNAL CHILD, HS TROP, BMP, PTT, PT, CBC ####[place] [id number] [facility] Basic Metabolic Panelon 10-2 -2022 Anion gap [Moles/Vol] 7.9 mmol/L Normal 6.0-15.0 [facility] Comment on above: Performed By: #### B REGISTERED NURSE MATERNAL CHILD, HS TROP, BMP, PTT, PT, CBC ####[place] [address] [place] [id number] [facility] Calcium [Mass/Vol] 8.4 mg/dL Low 8.6-10.3 [facility] Comment on above: Performed By: #### B REGISTERED NURSE MATERNAL CHILD, HS TROP, BMP, PTT, PT, CBC ####[place] [id number] [facility] Chloride [Moles/Vol] 96 mmol/L Low 98-107 [facility] Comment on above: Performed By: #### B REGISTERED NURSE MATERNAL CHILD, HS TROP, BMP, PTT, PT, CBC ####[place] [id number] [facility] CO2 [Moles/Vol] 33.2 mmol/L High 21.0-31.0 [facility] Comment on above: Performed By: #### B REGISTERED NURSE MATERNAL CHILD, HS TROP, BMP, PTT, PT, CBC ####[address] [address] [facility] Creatinine [Mass/Vol] 0.68 mg/dL Low 0.70-1.30 [facility] Comment on above: Performed By: #### B REGISTERED NURSE MATERNAL CHILD, HS TROP, BMP, PTT, PT, CBC ####[address] [address] [facility] Creatinine Clr Calc Pharmacy 57.66 Normal [facility] Comment on above: Result Comment: PERF ORMED BY: [facility] [address] [facility] [place] [address] PATHOLOGIST HEART COORDINATOR AIRAM MAST M.D. Performed By: #### B REGISTERED NURSE MATERNAL CHILD, HS TROP, BMP, PTT, PT, CBC ####[place] [address] [place] [id number] [facility] GFR/1.73 sq M.predicted MDRD (S/P/Bld) [Vol rate/Area] mL/min/{1.73_m2} Normal [facility] Comment on above: Performed By: #### B REGISTERED NURSE MATERNAL CHILD, HS TROP, BMP, PTT, PT, CBC ####[place] [address] [place] [id number] [facility] Glucose [Mass/Vol] 163 mg/dL High 70-100 [facility] Comment on above: Result Comment: [facility] Glucose Reference Range is dependent on time and content of last meal. Glucose of more than 200 mg/dL in a nonstressed, ambulatory subject supports the diagnosis of Diabetes Mellitus. ADA recommended reference range Performed By: #### B REGISTERED NURSE MATERNAL CHILD, HS TROP, BMP, PTT, PT, CBC ####[facility] [place] [address] [facility] Potassium [Moles/Vol] 4.1 mmol/L Normal 3.5-5.1 [facility] Comment on above: Performed By: #### B REGISTERED NURSE MATERNAL CHILD, HS TROP, BMP, PTT, PT, CBC ####[place] [address] [place] [address] [facility] Sodium [Moles/Vol] 133 mmol/L Low 136-145 [facility] Comment on above: Performed By: #### B REGISTERED NURSE MATERNAL CHILD, HS TROP, BMP, PTT, PT, CBC ####[place] [address] [place] [id number] [place] Urea nitrogen [Mass/Vol] 12 mg/dL Normal 7-25 [facility] Comment on above: Performed By: #### B REGISTERED NURSE MATERNAL CHILD, HS TROP, BMP, PTT, PT, CBC ####[place] [address] [place] [address] [facility] Anion gap [Moles/Vol] 5.4 mmol/L Low 6.0-15.0 [facility] Comment on above: Performed By: #### C BC, BMP ####[facility] [place] [address] [place] Calcium [Mass/Vol] 8.5 mg/dL Low 8.6-10.3 [facility] Comment on above: Performed By: #### C BC, BMP ####[place] [address] [place] [address] [place] Chloride [Moles/Vol] 98 mmol/L Normal 98-107 [facility] Comment on above: Performed By: #### C BC, BMP ####[place] [address] [place] [address] [place] CO2 [Moles/Vol] 35.0 mmol/L High 21.0-31.0 [facility] Comment on above: Performed By: #### C BC, BMP ####[place] [address] [place] [address] [place] Creatinine [Mass/Vol] 0.71 mg/dL Normal 0.70-1.30 [facility] Comment on above: Performed By: #### C BC, BMP ####[place] [address] [place] [address] [place] Creatinine Clr Calc Pharmacy 57.66 Normal [facility] Comment on above: Result Comment: PERF ORMED BY: [facility] [address] [place] [address] PATHOLOGIST HEART COORDINATOR AIRAM MAST M.D. Performed By: #### C BC, BMP ####[place] [address] [place] [address] [place] GFR/1.73 sq M.predicted MDRD (S/P/Bld) [Vol rate/Area] mL/min/{1.73_m2} [facility] Comment on above: Performed By: #### C BC, BMP ####[facility] [place] [address] [facility] Glucose [Mass/Vol] 72 mg/dL Normal 70-100 [facility] Comment on above: Result Comment: [place] Glucose Reference Range is dependent on time and content of last meal. Glucose of more than 200 mg/dL in a nonstressed, ambulatory subject supports the diagnosis of Diabetes Mellitus. ADA recommended reference range Performed By: #### C BC, BMP ####[place] [address] [place] [address] [facility] Potassium [Moles/Vol] 4.4 mmol/L Normal 3.5-5.1 [facility] Comment on above: Performed By: #### C BC, BMP ####[place] [address] [place] [id number] [facility] Sodium [Moles/Vol] 134 mmol/L Low 136-145 [facility] Comment on above: Performed By: #### C BC, BMP ####[place] [address] [place] [id number] [facility] Urea nitrogen [Mass/Vol] 12 mg/dL Normal 7-25 [facility] Comment on above: Performed By: #### C BC, BMP ####[place] [address] [place] [id number] [facility] Coagulation Profileon 2022 aPTT Coag (Bld) [Time] 29.5 s Normal 25.1-36.5 [facility] Comment on above: Result Comment: A he matocrit value greater than 55% may lead to inaccurate results in coagulation testing. Patients having hematocrit values >55% require a special collection tube for coagulation studies. Please contact the laboratory at [phone] for redraw instructions. PERFORMED BY: [facility] [address] [place] [id number] PATHOLOGIST HEART COORDINATOR AIRAM MAST M.D. Performed By: #### P P ####[place] [id number] [facility] INR Coag (PPP) [Relative time] 1.2 {INR} Normal [facility] Comment on above: Result Comment: INR [...] - 4.5 Performed By: #### P P ####[address] PT Coag (PPP) [Time] 14.8 s High 9.0-12.9 [facility] Comment on above: Result Comment: A he matocrit value greater than 55% may lead to inaccurate results in coagulation testing. Patients having hematocrit values >55% require a special collection tube for coagulation studies. Please contact the laboratory at [phone] for redraw instructions. Performed By: #### P P ####[address] Complete Blood Count Auto Di ffon 04-30-2023 Basophils (Bld) [#/Vol] 0.0 10*3/uL Normal 0.0-0.2 [facility] Comment on above: Result Comment: PERF ORMED BY: [facility] [address] [facility] [place] [address] PATHOLOGIST HEART COORDINATOR AIRAM MAST M.D. Performed By: #### B REGISTERED NURSE MATERNAL CHILD, HS TROP, BMP, PTT, PT, CBC ####[address] Basophils/100 WBC (Bld) 0.3 % Normal . [facility] Comment on above: Performed By: #### B REGISTERED NURSE MATERNAL CHILD, HS TROP, BMP, PTT, PT, CBC ####[address] Eosinophils (Bld) [#/Vol] 0.0 10*3/uL Normal 0.0-0.45 [facility] Comment on above: Performed By: #### B REGISTERED NURSE MATERNAL CHILD, HS TROP, BMP, PTT, PT, CBC ####[address] Eosinophils/100 WBC (Bld) 0.0 % Normal . [facility] Comment on above: Performed By: #### B REGISTERED NURSE MATERNAL CHILD, HS TROP, BMP, PTT, PT, CBC ####[address] Erythrocyte distribution width (RBC) [Ratio] 17.8 % High 12.0-14.8 [facility] Comment on above: Performed By: #### B REGISTERED NURSE MATERNAL CHILD, HS TROP, BMP, PTT, PT, CBC ####[address] Hematocrit (Bld) [Volume fraction] 35.8 % Low 38.8-50.0 [facility] Comment on above: Performed By: #### B REGISTERED NURSE MATERNAL CHILD, HS TROP, BMP, PTT, PT, CBC ####[address] Hemoglobin (Bld) [Mass/Vol] 11.8 g/dL Low 13.0-17.0 [facility] Comment on above: Performed By: #### B REGISTERED NURSE MATERNAL CHILD, HS TROP, BMP, PTT, PT, CBC ####[address] Lymphocytes (Bld) [#/Vol] 0.6 10*3/uL Low 1.00-4.8 [facility] Comment on above: Performed By: #### B REGISTERED NURSE MATERNAL CHILD, HS TROP, BMP, PTT, PT, CBC ####[address] Lymphocytes/100 WBC (Bld) 5.9 % Normal . [facility] Comment on above: Performed By: #### B REGISTERED NURSE MATERNAL CHILD, HS TROP, BMP, PTT, PT, CBC ####[address] MCH (RBC) [Entitic mass] 27.9 pg Normal 27.5-35.2 [facility] Comment on above: Performed By: #### B REGISTERED NURSE MATERNAL CHILD, HS TROP, BMP, PTT, PT, CBC ####[address] MCV (RBC) [Entitic vol] 84.7 fL Normal 83.5-101 [facility] Comment on above: Performed By: #### B REGISTERED NURSE MATERNAL CHILD, HS TROP, BMP, PTT, PT, CBC ####[address] Mean Corpuscular HGB Conc 32.9 g/dL Normal 32.5-35.6 [facility] Comment on above: Performed By: #### B REGISTERED NURSE MATERNAL CHILD, HS TROP, BMP, PTT, PT, CBC ####[address] Monocytes (Bld) [#/Vol] 1.4 10*3/uL High 0.0-0.8 [facility] Comment on above: Performed By: #### B REGISTERED NURSE MATERNAL CHILD, HS TROP, BMP, PTT, PT, CBC ####[address] Monocytes/100 WBC (Bld) 14.6 % Normal . [facility] Comment on above: Performed By: #### B REGISTERED NURSE MATERNAL CHILD, HS TROP, BMP, PTT, PT, CBC ####[address] Neutrophils (Bld) [#/Vol] 7.4 10*3/uL Normal 1.8-7.7 [facility] Comment on above: Performed By: #### B REGISTERED NURSE MATERNAL CHILD, HS TROP, BMP, PTT, PT, CBC ####[address] Neutrophils/100 WBC (Bld) 79.2 % Normal . [facility] Comment on above: Performed By: #### B REGISTERED NURSE MATERNAL CHILD, HS TROP, BMP, PTT, PT, CBC ####[address] NRBC% 0.1 /100{WBC} Normal 0-0.5 [facility] Comment on above: Performed By: #### B REGISTERED NURSE MATERNAL CHILD, HS TROP, BMP, PTT, PT, CBC ####[address] Platelet mean volume (Bld) [Entitic vol] 9.9 fL Normal 6.6-10.1 [facility] Comment on above: Performed By: #### B REGISTERED NURSE MATERNAL CHILD, HS TROP, BMP, PTT, PT, CBC ####[place] [id number] Platelets (Bld) [#/Vol] 194 10*3/uL Normal 150-450 [facility] Comment on above: Performed By: #### B REGISTERED NURSE MATERNAL CHILD, HS TROP, BMP, PTT, PT, CBC ####[address] RBC (Bld) [#/Vol] 4.23 10*6/uL Normal 3.90-5.60 [facility] Comment on above: Performed By: #### B REGISTERED NURSE MATERNAL CHILD, HS TROP, BMP, PTT, PT, CBC ####[place] [id number] WBC (Bld) [#/Vol] 9.3 10*3/uL Normal 4.1-10.5 [facility] Comment on above: Performed By: #### B REGISTERED NURSE MATERNAL CHILD, HS TROP, BMP, PTT, PT, CBC ####[address] Basophils (Bld) [#/Vol] 0.0 10*3/uL Normal 0.0-0.2 [facility] Comment on above: Result Comment: PERF ORMED BY: [facility] [address] [place] [address] PATHOLOGIST HEART COORDINATOR AIRAM MAST M.D. Performed By: #### C BC, BMP ####[place] [address] [place] Basophils/100 WBC (Bld) 0.4 % Normal . [facility] Comment on above: Performed By: #### C BC, BMP ####[place] [address] [place] Eosinophils (Bld) [#/Vol] 0.1 10*3/uL Normal 0.0-0.45 [facility] Comment on above: Performed By: #### C BC, BMP ####[place] [address] [place] Eosinophils/100 WBC (Bld) 0.6 % Normal . [facility] Comment on above: Performed By: #### C DENISE, BMP ####[place] [id number] [facility] Erythrocyte distribution width (RBC) [Ratio] 18.0 % High 12.0-14.8 [facility] Comment on above: Performed By: #### C BC, BMP ####[place] [id number] [facility] Hematocrit (Bld) [Volume fraction] 33.7 % Low 38.8-50.0 [facility] Comment on above: Performed By: #### C DENISE, BMP ####[address] Hemoglobin (Bld) [Mass/Vol] 11.2 g/dL Low 13.0-17.0 [facility] Comment on above: Performed By: #### C DENISE, BMP ####[address] Lymphocytes (Bld) [#/Vol] 2.0 10*3/uL Normal 1.00-4.8 [facility] Comment on above: Performed By: #### C DENISE, BMP ####[place] [id number] [facility] Lymphocytes/100 WBC (Bld) 22.0 % Normal . [facility] Comment on above: Performed By: #### C DENISE, BMP ####[place] [id number] [facility] MCH (RBC) [Entitic mass] 28.1 pg Normal 27.5-35.2 [facility] Comment on above: Performed By: #### C DENISE, BMP ####[place] [id number] [facility] MCV (RBC) [Entitic vol] 84.7 fL Normal 83.5-101 [facility] Comment on above: Performed By: #### C DENISE, BMP ####[place] [id number] [facility] Mean Corpuscular HGB Conc 33.2 g/dL Normal 32.5-35.6 [facility] Comment on above: Performed By: #### C DENISE, BMP ####[place] [id number] [place] [address] [facility] Monocytes (Bld) [#/Vol] 1.5 10*3/uL High 0.0-0.8 [facility] Comment on above: Performed By: #### C DENISE, BMP ####[place] [id number] [facility] Monocytes/100 WBC (Bld) 16.4 % Normal . [facility] Comment on above: Performed By: #### C DENISE, BMP ####[place] [id number] [place] [address] [facility] Neutrophils (Bld) [#/Vol] 5.4 10*3/uL Normal 1.8-7.7 [facility] Comment on above: Performed By: #### C DENISE, BMP ####[place] [id number] [facility] Neutrophils/100 WBC (Bld) 60.6 % Normal . [facility] Comment on above: Performed By: #### C DENISE, BMP ####[address] [address] [facility] NRBC% 0.1 /100{WBC} Normal 0-0.5 [facility] Comment on above: Performed By: #### C DENISE, BMP ####[place] [id number] [facility] Platelet mean volume (Bld) [Entitic vol] 9.1 fL Normal 6.6-10.1 [facility] Comment on above: Performed By: #### C DENISE, BMP ####[address] [address] [facility] Platelets (Bld) [#/Vol] 173 10*3/uL Normal 150-450 [facility] Comment on above: Performed By: #### C DENISE, BMP ####[address] [address] [facility] RBC (Bld) [#/Vol] 3.98 10*6/uL Normal 3.90-5.60 [facility] Comment on above: Performed By: #### C BC, BMP ####[facility] [id number] [place] [id number] [facility] WBC (Bld) [#/Vol] 9.0 10*3/uL Normal 4.1-10.5 [facility] Comment on above: Performed By: #### C BC, BMP ####[facility] [id number] [place] [id number] [facility] ECG 12 lead ECGon 04-30-2023 ECG 12 lead ECG [facility] Main [place] [address] [place] [address] Electrocardiograph Report Signed Patient: Ashwini Vickers MR#: [id number] 353 : 1935 Acct:[id number] Age/Sex: 88 / M ADM Date: 04/28/23 Loc: Room: [address] [place] [address] Type: ADM IN Attending Dr: Sushant Cordon [...] Septal infarct present Confirmed by AD[facility]BY [facility] ([id number] on 05/02/2023 10:47:33 AM Referred By: Electronically Signed By:GEENA VALENTE MD [facility] Transcribed By: MUS Signed By Adrián Valente MD 05/02/23 1047 [facility] Glucose Poct Glucometerson 1 Commemt1 Glu2: Cleaned Meter Normal [facility] Comment on above: Result Comment: PERF ORMED BY: [facility] [address] [facility] [place] [address] PATHOLOGIST HEART COORDINATOR AIRAM MAST M.D. Performed By: #### G LULS #### Point of Care testing , Glucose [Mass/Vol] 375 mg/dL Normal [facility] Comment on above: Result Comment: [place] Glucose Reference Range is dependent on time and content of last meal. Glucose of more than 200 mg/dL in a nonstressed, ambulatory subject supports the diagnosis of Diabetes Mellitus. Performed By: #### G LULS #### Point of Care testing , Glucose [Mass/Vol] 162 mg/dL Normal [facility] Comment on above: Result Comment: [place] Glucose Reference Range is dependent on time and content of last meal. Glucose of more than 200 mg/dL in a nonstressed, ambulatory subject supports the diagnosis of Diabetes Mellitus. PERFORMED BY: [place] [address] PATHOLOGIST HEART COORDINATOR AIRAM MAST M.D. Performed By: #### G LULS ####Point of Care testing, Glucose [Mass/Vol] 149 mg/dL [facility] Comment on above: Result Comment: [place] Glucose Reference Range is dependent on time and content of last meal. Glucose of more than 200 mg/dL in a nonstressed, ambulatory subject supports the diagnosis of Diabetes Mellitus. PERFORMED BY: [address] [place] [address] PATHOLOGIST HEART COORDINATOR AIRAM MAST M.D. Performed By: #### G LULS ####Point of Care testing, Commemt1 Glu2: Cleaned Meter Normal [facility] Comment on above: Result Comment: PERF ORMED BY: [facility] [address] [facility] [place] [address] PATHOLOGIST HEART COORDINATOR AIRAM MAST M.D. Performed By: #### G LULS #### Point of Care testing , Glucose [Mass/Vol] 130 mg/dL [facility] Comment on above: Result Comment: [place] Glucose Reference Range is dependent on time and content of last meal. Glucose of more than 200 mg/dL in a nonstressed, ambulatory subject supports the diagnosis of Diabetes Mellitus. Performed By: #### G LULS #### Point of Care testing , Glucose [Mass/Vol] 118 mg/dL Normal [facility] Comment on above: Result Comment: [place] Glucose Reference Range is dependent on time and content of last meal. Glucose of more than 200 mg/dL in a nonstressed, ambulatory subject supports the diagnosis of Diabetes Mellitus. PERFORMED BY: [address] [place] [id number] PATHOLOGIST HEART COORDINATOR AIRAM MAST M.D. Performed By: #### G LULS ####Point of Care testing, Glucose [Mass/Vol] 83 mg/dL Normal [facility] Comment on above: Result Comment: [place] Glucose Reference Range is dependent on time and content of last meal. Glucose of more than 200 mg/dL in a nonstressed, ambulatory subject supports the diagnosis of Diabetes Mellitus. PERFORMED BY: [address] [place] [address] PATHOLOGIST HEART COORDINATOR AIRAM MAST M.D. Performed By: #### G LULS #### Point of Care testing , Commemt1 [facility] Comment on above: Result Comment: Glu2 : WILL NOTIFY DR/RN PERFORMED BY: [address] [place] [address] PATHOLOGIST HEART COORDINATOR AIRAM MAST M.D. Performed By: #### G LULS ####Point of Care testing, Glucose [Mass/Vol] 53 mg/dL Off scale low [facility] Comment on above: Result Comment: [place] Glucose Reference Range is dependent on time and content of last meal. Glucose of more than 200 mg/dL in a nonstressed, ambulatory subject supports the diagnosis of Diabetes Mellitus. Performed By: #### G LULS ####Point of Care testing, Glucose [Mass/Vol] 75 mg/dL Normal [facility] Comment on above: Result Comment: [place] Glucose Reference Range is dependent on time and content of last meal. Glucose of more than 200 mg/dL in a nonstressed, ambulatory subject supports the diagnosis of Diabetes Mellitus. PERFORMED BY: [facility] [address] [place] [address] PATHOLOGIST HEART COORDINATOR AIRAM MAST M.D. Performed By: #### G LULS #### Point of Care testing , Glucose [Mass/Vol] 63 mg/dL Normal [facility] Comment on above: Result Comment: [facility] Glucose Reference Range is dependent on time and content of last meal. Glucose of more than 200 mg/dL in a nonstressed, ambulatory subject supports the diagnosis of Diabetes Mellitus. PERFORMED BY: [facility] [address] [facility] [place] [address] PATHOLOGIST HEART COORDINATOR AIRAM MAST M.D. Performed By: #### G LULS ####Point of Care testing, Glucose [Mass/Vol] 133 mg/dL Normal [facility] Comment on above: Result Comment: [facility] Glucose Reference Range is dependent on time and content of last meal. Glucose of more than 200 mg/dL in a nonstressed, ambulatory subject supports the diagnosis of Diabetes Mellitus. PERFORMED BY: [facility] [address] [facility] [place] [address] PATHOLOGIST HEART COORDINATOR AIRAM MAST M.D. Performed By: #### G LULS ####Point of Care testing, Glucose [Mass/Vol] 68 mg/dL Normal [facility] Comment on above: Result Comment: [facility] Glucose Reference Range is dependent on time and content of last meal. Glucose of more than 200 mg/dL in a nonstressed, ambulatory subject supports the diagnosis of Diabetes Mellitus. PERFORMED BY: [facility] [address] [facility] [place] [address] PATHOLOGIST HEART COORDINATOR AIRAM MAST M.D. Performed By: #### G LULS ####Point of Care testing, INR in Platelet poor plasma by Coagulation assayOrdered By: Anat Perez on 04-30-2023 INR Coag (PPP) [Relative time] 1.3 {INR} [facility] Comment on above: INR Therapeutic Rang [...] peptide B (Bld) [Mass/Vol] 523.0 pg/mL 5-100 [facility] Partial Thromboplastin Timeo n 04-30-2023 aPTT Coag (Bld) [Time] 30.6 s Normal 25.1-36.5 [facility] Comment on above: Result Comment: A he matocrit value greater than 55% may lead to inaccurate results in coagulation testing. Patients having hematocrit values >55% require a special collection tube for coagulation studies. Please contact the laboratory at [phone] for redraw instructions. PERFORMED BY: [facility] [address] [place] [id number] PATHOLOGIST HEART COORDINATOR AIRAM MAST M.D. Performed By: #### B REGISTERED NURSE MATERNAL CHILD, HS TROP, BMP, PTT, PT, CBC ####[place] [id number] [place] [id number] [facility] Prothrombin Time INRon 04-30 INR Coag (PPP) [Relative time] 1.3 {INR} Normal [facility] Comment on above: Result Comment: INR [...] 3 - 4.5 Performed By: #### B REGISTERED NURSE MATERNAL CHILD, HS TROP, BMP, PTT, PT, CBC ####[facility] [place] [id number] [facility] PT Coag (PPP) [Time] 15.6 s High 9.0-12.9 [facility] Comment on above: Result Comment: A he matocrit value greater than 55% may lead to inaccurate results in coagulation testing. Patients having hematocrit values >55% require a special collection tube for coagulation studies. Please contact the laboratory at [phone] for redraw instructions. Performed By: #### B REGISTERED NURSE MATERNAL CHILD, HS TROP, BMP, PTT, PT, CBC ####[place] [address] [place] [address] [facility] Prothrombin time (PT)Ordered By: Anat Perez on 04-30-2023 PT Coag (PPP) [Time] 15.6 s 9.0-12.9 [facility] Comment on above: A hematocrit value g reater than 55% may lead to inaccurate results in coagulation testing. Patients having hematocrit values >55% require a special collection tube for coagulation studies. Please contact the laboratory at [phone] for redraw instructions. Troponin I High Sensitivityo n 04-30-2023 Troponin I High Sensitivity 53.7 pg/mL Off scale high 0.0-20.0 [facility] Comment on above: Result Comment: Crit ical Result : Called to and read back by: STEVEN BYRD at: 04/30/2023 19:24:20 by:[id number] PERFORMED BY: [address] [place] [address] PATHOLOGIST HEART COORDINATOR AIRAM MAST M.D. Performed By: #### H S TROP ####[address] [address] [facility] Troponin I High Sensitivity 26.1 pg/mL High 0.0-20.0 [facility] Comment on above: Result Comment: PERF ORMED BY: [facility] [address] [place] [address] PATHOLOGIST HEART COORDINATOR AIRAM MAST M.D. Performed By: #### H S TROP ####[address] [address] [facility] Troponin I High Sensitivity 24.6 pg/mL High 0.0-20.0 [facility] Comment on above: Result Comment: PERF ORMED BY: [facility] [address] [facility] [facility] [address] PATHOLOGIST HEART COORDINATOR AIRAM MAST M.D. Performed By: #### B REGISTERED NURSE MATERNAL CHILD, HS TROP, BMP, PTT, PT, CBC ####[facility] [place] [id number] [facility] Troponin I High Sensitivity 26.8 pg/mL High 0.0-20.0 [facility] Comment on above: Result Comment: PERF ORMED BY: [place] [address] PATHOLOGIST HEART COORDINATOR AIRAM MAST M.D. Performed By: #### G LULS #### Point of Care testing , Troponin I.cardiac [Mass/vol ume] in Serum or Plasma by Detection limit <= 0.01 ng/Ordered By: Anat Perez on 04-30-2023 Troponin I.cardiac DL <= 0.01 ng/mL [Mass/Vol] 53.7 pg/mL 0.0-20.0 [facility] Comment on above: Critical Result : Ca lled to and read back by: STEVEN BYRD at: 04/30/2023 19:24:20 by:[id number] Type and Screenon 04-30-2023 ABO and Rh group Nom (Bld) Blood group A Rh(D) positive Normal [facility] Comment on above: Result Comment: PERF ORMED BY: [address] [address] PATHOLOGIST HEART COORDINATOR AIRAM MAST M.D. XR chest 1V portableon 04-30 XR chest 1V portable [facility] Main [address] [address] XRay Report Signed Patient: Ashwini Vickers MR#: [id number] 353 : 1935 Acct:[id number] Age/Sex: 88 / M ADM Date: 04/28/23 Loc: 4N Room: [address] [place] [address] Type: ADM IN Attending Dr: Sushant Cordon [...] Sheldon Johnson M.D.04/30/2023 10:16 AM Dictation Location: [place] [address] Transcribed By: [facility] 04/30/23 1016 Dictated By: Sheldon Johnson DO 04/30/23 1010 Signed By: 04/30/23 1016 Normal [facility] XR hip RT min 2V(w/wo pelvis )*on 04-30-2023 XR hip RT min 2V(w/wo pelvis)* [facility] [place] [address] XRay Report Signed Patient: Ashwini Vickers MR#: [id number] 353 : 1935 Acct:[id number] Age/Sex: 88 / M ADM Date: 04/28/23 Loc: Room: [address] [place] [address] Type: ADM IN Attending Dr: Sushant Cordon DO Copies to: MD Sushant Carlos DO Ordering Provider: Ashwini Conrad MD Date of Service: 04/30/23 XR/XR hip RT min 2V(w/wo pelvis)*: RT HIP TFN ([id number]) XR/XR hip RT min 2V(w/wo pelvis)*: Hip [...] Sofia Rosales M.D.04/30/2023 6:32 PM Dictation Location: [place] [address] Transcribed By: [facility] 04/30/231831 Dictated By: Sofia Rosales MD 04/30/231827 Signed By: 04/30/231831 [facility] Basic Metabolic Panelon - Anion gap [Moles/Vol] 8.5 mmol/L Normal 6.0-15.0 [facility] Comment on above: Order Comment: FASTI NG Y Performed By: #### G LULS #### Point of Care testing , Calcium [Mass/Vol] 8.4 mg/dL Low 8.6-10.3 [facility] Comment on above: Order Comment: FASTI NG Y Performed By: #### G LULS #### Point of Care testing , Chloride [Moles/Vol] 100 mmol/L Normal 98-107 [facility] Comment on above: Order Comment: FASTI NG Y Performed By: #### G LULS #### Point of Care testing , CO2 [Moles/Vol] 32.3 mmol/L High 21.0-31.0 [facility] Comment on above: Order Comment: FASTI NG Y Performed By: #### G LULS #### Point of Care testing , Creatinine [Mass/Vol] 0.79 mg/dL Normal 0.70-1.30 [facility] Comment on above: Order Comment: FASTI NG Y Performed By: #### G LULS #### Point of Care testing , Creatinine Clr Calc Pharmacy 57.75 [facility] Comment on above: Order Comment: FASTI NG Y Performed By: #### G LULS #### Point of Care testing , GFR/1.73 sq M.predicted MDRD (S/P/Bld) [Vol rate/Area] mL/min/{1.73_m2} Normal [facility] Comment on above: Order Comment: FASTI NG Y Performed By: #### G LULS #### Point of Care testing , Glucose [Mass/Vol] 106 mg/dL High 70-100 [facility] Comment on above: Order Comment: FASTI NG Y Result Comment: [facility] Glucose Reference Range is dependent on time and content of last meal. Glucose of more than 200 mg/dL in a nonstressed, ambulatory subject supports the diagnosis of Diabetes Mellitus. ADA recommended reference range Performed By: #### G LULS #### Point of Care testing , Potassium [Moles/Vol] 4.8 mmol/L Normal 3.5-5.1 [facility] Comment on above: Order Comment: FASTI NG Y Performed By: #### G LULS #### Point of Care testing , Sodium [Moles/Vol] 136 mmol/L Normal 136-145 [facility] Comment on above: Order Comment: FASTI NG Y Performed By: #### G LULS #### Point of Care testing , Urea nitrogen [Mass/Vol] 15 mg/dL Normal 7-25 [facility] Comment on above: Order Comment: FASTI NG Y Performed By: #### G LULS #### Point of Care testing , Complete Blood Count Auto Di ffon 04-29-2023 Basophils (Bld) [#/Vol] 0.0 10*3/uL Normal 0.0-0.2 [facility] Comment on above: Result Comment: PERF ORMED BY: [facility] [address] [place] [address] PATHOLOGIST HEART COORDINATOR AIRAM MAST M.D. Performed By: #### G LULS #### Point of Care testing , Basophils/100 WBC (Bld) 0.3 % Normal . [facility] Comment on above: Performed By: #### G LULS #### Point of Care testing , Eosinophils (Bld) [#/Vol] 0.1 10*3/uL Normal 0.0-0.45 [facility] Comment on above: Performed By: #### Aileen NATION #### Point of Care testing , Eosinophils/100 WBC (Bld) 1.3 % Normal . [facility] Comment on above: Performed By: #### G KRISTOPHERLS #### Point of Care testing , Erythrocyte distribution width (RBC) [Ratio] 18.3 % High 12.0-14.8 [facility] Comment on above: Performed By: #### Aileen NATION #### Point of Care testing , Hematocrit (Bld) [Volume fraction] 32.9 % Low 38.8-50.0 [facility] Comment on above: Performed By: #### Aileen SUMMERSLS #### Point of Care testing , Hemoglobin (Bld) [Mass/Vol] 10.9 g/dL Low 13.0-17.0 [facility] Comment on above: Performed By: #### Aileen NATION #### Point of Care testing , Lymphocytes (Bld) [#/Vol] 2.0 10*3/uL Normal 1.00-4.8 [facility] Comment on above: Performed By: #### Aileen NATION #### Point of Care testing , Lymphocytes/100 WBC (Bld) 26.5 % Normal . [facility] Comment on above: Performed By: #### Aileen NATION #### Point of Care testing , MCH (RBC) [Entitic mass] 28.0 pg Normal 27.5-35.2 [facility] Comment on above: Performed By: #### Aileen NATION #### Point of Care testing , MCV (RBC) [Entitic vol] 84.9 fL Normal 83.5-101 [facility] Comment on above: Performed By: #### Aileen NATION #### Point of Care testing , Mean Corpuscular HGB Conc 33.0 g/dL Normal 32.5-35.6 [facility] Comment on above: Performed By: #### Aileen NATION #### Point of Care testing , Monocytes (Bld) [#/Vol] 1.1 10*3/uL High 0.0-0.8 [facility] Comment on above: Performed By: #### G LULS #### Point of Care testing , Monocytes/100 WBC (Bld) 14.9 % Normal . [facility] Comment on above: Performed By: #### G LULS #### Point of Care testing , Neutrophils (Bld) [#/Vol] 4.3 10*3/uL Normal 1.8-7.7 [facility] Comment on above: Performed By: #### G LULS #### Point of Care testing , Neutrophils/100 WBC (Bld) 57.0 % Normal . [facility] Comment on above: Performed By: #### G LULS #### Point of Care testing , NRBC% 0.1 /100{WBC} Normal 0-0.5 [facility] Comment on above: Performed By: #### G LULS #### Point of Care testing , Platelet mean volume (Bld) [Entitic vol] 9.3 fL Normal 6.6-10.1 [facility] Comment on above: Performed By: #### G LULS #### Point of Care testing , Platelets (Bld) [#/Vol] 186 10*3/uL Normal 150-450 [facility] Comment on above: Performed By: #### G LULS #### Point of Care testing , RBC (Bld) [#/Vol] 3.88 10*6/uL Low 3.90-5.60 [facility] Comment on above: Performed By: #### G LULS #### Point of Care testing , WBC (Bld) [#/Vol] 7.5 10*3/uL Normal 4.1-10.5 [facility] Comment on above: Performed By: #### G LULS #### Point of Care testing , ECH echo transthoracicon [facility] echo transthoracic [facility] Main [address] [address] Echocardiogram Signed Patient: Ashwini Vickers MR#: [id number] : 1935 Acct:[id number] Age/Sex: 88 / M ADM Date: 04/28/23 Loc: Room: 5K4038-4 Type: ADM IN Attending Dr: Sushant Cordon [...] By: Adrián Valente MD 04/29/23 1118 Normal [facility] Ferritinon 04-29-2023 Ferritin [Mass/Vol] 41.5 ng/mL Normal 23.9-336.2 [facility] Comment on above: Order Comment: FASTI NG Y Performed By: #### G LULS #### Point of Care testing , Ferritin [Mass/volume] in Se rum or PlasmaOrdered By: Sushant Cordon on 04-29-2023 Ferritin [Mass/Vol] 41.5 ng/mL 23.9-336.2 [facility] Folate [Mass/volume] in Seru m or PlasmaOrdered By: Sushant Cordon on 04-29-2023 Folate [Mass/Vol] 28.0 ng/mL >5.9 [facility] Comment on above: Folate reference ran ge: >5.9 ng/mlThe WHO technical consultation on folate and vitamin [id number] has determined that folate concentrations lessthan 4 ng/ml are considered deficient. Glucose Poct Glucometerson 1 Glucose [Mass/Vol] 323 mg/dL Normal [facility] Comment on above: Result Comment: [facility] Glucose Reference Range is dependent on time and content of last meal. Glucose of more than 200 mg/dL in a nonstressed, ambulatory subject supports the diagnosis of Diabetes Mellitus. PERFORMED BY: [facility] [address] [place] [address] PATHOLOGIST HEART COORDINATOR AIRAM MAST M.D. Performed By: #### G LULS ####Point of Care testing, Glucose [Mass/Vol] 238 mg/dL Normal [facility] Comment on above: Result Comment: [facility] Glucose Reference Range is dependent on time and content of last meal. Glucose of more than 200 mg/dL in a nonstressed, ambulatory subject supports the diagnosis of Diabetes Mellitus. PERFORMED BY: [facility] [address] [place] [id number] PATHOLOGIST HEART COORDINATOR AIRAM MAST M.D. Performed By: #### G LULS #### Point of Care testing , Commemt1 Glu2: Cleaned Meter [facility] Comment on above: Result Comment: PERF ORMED BY: [place] [address] [place] [address] PATHOLOGIST HEART COORDINATOR AIRAM MAST M.D. Performed By: #### G LULS ####Point of Care testing, Glucose [Mass/Vol] 81 mg/dL [facility] Comment on above: Result Comment: [place] Glucose Reference Range is dependent on time and content of last meal. Glucose of more than 200 mg/dL in a nonstressed, ambulatory subject supports the diagnosis of Diabetes Mellitus. Performed By: #### G LULS ####Point of Care testing, Glucose [Mass/Vol] 141 mg/dL [facility] Comment on above: Result Comment: [place] om Glucose Reference Range is dependent on time and content of last meal. Glucose of more than 200 mg/dL in a nonstressed, ambulatory subject supports the diagnosis of Diabetes Mellitus. PERFORMED BY: [address] [place] [address] PATHOLOGIST HEART COORDINATOR AIRAM MAST M.D. Performed By: #### G LULS #### Point of Care testing , Glucose [Mass/Vol] 87 mg/dL [facility] Comment on above: Result Comment: [place] Glucose Reference Range is dependent on time and content of last meal. Glucose of more than 200 mg/dL in a nonstressed, ambulatory subject supports the diagnosis of Diabetes Mellitus. PERFORMED BY: [address] [place] [address] PATHOLOGIST HEART COORDINATOR AIRAM MAST M.D. Performed By: #### G LULS ####Point of Care testing, Commemt1 Glu2: Cleaned Meter [facility] Comment on above: Performed By: #### G LULS ####Point of Care testing, Commemt2 WILL NOTIFY DR/RN Normal [facility] Comment on above: Result Comment: PERF ORMED BY: [facility] [address] [place] [id number] PATHOLOGIST HEART COORDINATOR AIRAM MAST M.D. Performed By: #### G LULS ####Point of Care testing, Glucose [Mass/Vol] 53 mg/dL Off scale [facility] Comment on above: Result Comment: [place] om Glucose Reference Range is dependent on time and content of last meal. Glucose of more than 200 mg/dL in a nonstressed, ambulatory subject supports the diagnosis of Diabetes Mellitus. Performed By: #### G LULS ####Point of Care testing, Commemt1 Glu2: Cleaned Meter [facility] Comment on above: Performed By: #### G LULS ####Point of Care testing, Commemt2 WILL NOTIFY /KARIN [facility] Comment on above: Result Comment: PERF ORMED BY: [address] [place] [id number] PATHOLOGIST HEART COORDINATOR AIRAM AMST M.D. Performed By: #### G LULS ####Point of Care testing, Glucose [Mass/Vol] 47 mg/dL Off scale [facility] Comment on above: Result Comment: [place] om Glucose Reference Range is dependent on time and content of last meal. Glucose of more than 200 mg/dL in a nonstressed, ambulatory subject supports the diagnosis of Diabetes Mellitus. Performed By: #### G LULS ####Point of Care testing, Commemt1 Glu2: Cleaned Meter [facility] Comment on above: Result Comment: PERF ORMED BY: [address] [place] [id number] PATHOLOGIST HEART COORDINATOR AIRAM MAST M.D. Performed By: #### G LULS ####Point of Care testing, Glucose [Mass/Vol] 58 mg/dL Off scale [facility] Comment on above: Result Comment: [place] om Glucose Reference Range is dependent on time and content of last meal. Glucose of more than 200 mg/dL in a nonstressed, ambulatory subject supports the diagnosis of Diabetes Mellitus. Performed By: #### G LULS ####Point of Care testing, Commemt1 Glu2: Cleaned Meter Normal [facility] Comment on above: Result Comment: PERF ORMED BY: [facility] [address] [place] [address] PATHOLOGIST HEART COORDINATOR AIRAM MAST M.D. Performed By: #### G LULS ####Point of Care testing, Glucose [Mass/Vol] 59 mg/dL Off scale low [facility] Comment on above: Result Comment: [facility] Glucose Reference Range is dependent on time and content of last meal. Glucose of more than 200 mg/dL in a nonstressed, ambulatory subject supports the diagnosis of Diabetes Mellitus. Performed By: #### G LULS ####Point of Care testing, Iron [Mass/volume] in Serum or PlasmaOrdered By: Sushant Cordon on 04-29-2023 Iron [Mass/Vol] 45 ug/dL 50-212 [facility] Iron and TIBC Profileon 04-11 % Iron Saturation 13.6 % Low 20-50 [facility] Comment on above: Order Comment: FASTI NG Y Performed By: #### G LULS #### Point of Care testing , Iron [Mass/Vol] 45 ug/dL Low 50-212 [facility] Comment on above: Order Comment: FASTI NG Y Performed By: #### G LULS #### Point of Care testing , Total Iron Binding Capacity 330 ug/dL Normal 255-450 [facility] Comment on above: Order Comment: FASTI NG Y Performed By: #### G LULS #### Point of Care testing , Transferrin [Mass/Vol] 236 mg/dL Normal 203-362 [facility] Comment on above: Order Comment: FASTI NG Y Performed By: #### G LULS #### Point of Care testing , Iron binding capacity [Mass/ volume] in Serum or PlasmaOrdered By: Sushant Cordon on 04-29-2023 Iron binding capacity [Mass/Vol] 330 ug/dL 255-450 [facility] Iron saturation [Mass Fracti on] in Serum or PlasmaOrdered By: Sushant Cordon on 04-29-2023 Iron saturation [Mass fraction] 13.6 % 20-50 [facility] Lipid Panelon 04-29-2023 Cholesterol [Mass/Vol] 143 mg/dL Normal 140-200 [facility] Comment on above: Order Comment: FASTI ARSLAN Y Result Comment: Chol less than 200 mg/dl low risk Chol 201-239 mg/dl borderline risk Chol 240 mg/dl and greater high risk Performed By: #### G LULS #### Point of Care testing , Cholesterol in HDL [Mass/Vol] 57 mg/dL Normal 23-92 [facility] Comment on above: Order Comment: FASTI NG Y Result Comment: HDL CHOL ATP-III CLASSIFICATION Cardiovascular Risk HDL > or equal to 60 mg/dL LOW HDL < 40 mg/dL HIGH Performed By: #### G LULS #### Point of Care testing , Cholesterol.total/Cho lesterol in HDL [Mass ratio] 2.5 {ratio} Normal <5.0 [facility] Comment on above: Order Comment: NICHELLE ARSLAN Y Performed By: #### G LULS #### Point of Care testing , LDL Cholesterol,Calculate d 80 mg/dL Normal 0-100 [facility] Comment on above: Order Comment: FASTI NG Y Result Comment: LDL ATP III CLASSIFICATION LDL less than 100 mg/dL Optimal LDL 100-129 mg/dL Near or above optimal LDL 130-159 mg/dL Borderline high LDL 160-189 mg/dL High LDL greater than 189 mg/dL Very high Performed By: #### G LULS #### Point of Care testing , Triglyceride w/Reflex 32 mg/dL Normal 0-149 [facility] Comment on above: Order Comment: [...] testing , VLDL CHOLESTEROL 6 mg/dL Normal [facility] Comment on above: Order Comment: FASTI NG Y Performed By: #### G LULS #### Point of Care testing , Magnesiumon 04-29-2023 Magnesium [Mass/Vol] 1.9 mg/dL Normal 1.9-2.7 [facility] Comment on above: Order Comment: FASTI NG Y Performed By: #### G LULS #### Point of Care testing , Magnesium [Mass/volume] in S jihan or PlasmaOrdered By: Sushant Cordon on 04-29-2023 Magnesium [Mass/Vol] 1.9 mg/dL 1.9-2.7 [facility] No Panel InformationOrdered By: Sushant Cordon on 04-29-2023 Bedside Glucose #[address]/rn [facility] Transferrin [Mass/volume] in Serum or PlasmaOrdered By: Sushant Cordon on 04-29-2023 Transferrin [Mass/Vol] 236 mg/dL 203-362 [facility] Troponin I High Sensitivityo n 04-29-2023 Troponin I High Sensitivity 32.5 pg/mL High 0.0-20.0 [facility] Comment on above: Result Comment: PERF ORMED BY: [facility] [address] [place] [address] PATHOLOGIST HEART COORDINATOR AIRAM MAST M.D. Performed By: #### H S TROP ####[facility] [id number] [place] [id number] [facility] Vit. B12/Folate Profileon Cobalamin (Vitamin B12) [Mass/Vol] 626 pg/mL Normal 180-914 [facility] Comment on above: Order Comment: FASTI NG Y Performed By: #### G LULS #### Point of Care testing , Folate 28.0 ng/mL Normal >5.9 [facility] Comment on above: Order Comment: FASTI NG Y Result Comment: Lucretia te reference range: >5.9 ng/ml The WHO technical consultation on folate and vitamin b12 deficiencies has determined that folate concentrations less than 4 ng/ml are considered deficient. PERFORMED BY: [facility] [address] [place] [address] PATHOLOGIST HEART COORDINATOR AIRAM MAST M.D. Performed By: #### G RIOS #### Point of Care testing , Vitamin B12 ser/plasOrdered By: Sushant Cordon on 04-29-2023 Cobalamin (Vitamin B12) [Mass/Vol] 626 pg/mL 180-914 [facility] A1C with Estimated Average G kirill 04-28-2023 Glucose [Mass/Vol] 309 mg/dL Normal [facility] Comment on above: Result Comment: PERF ORMED BY: [facility] [address] [place] [id number] PATHOLOGIST HEART COORDINATOR AIRAM MAST M.D. Performed By: #### A 1C [facility] eA ####[place] [id number] [place] [address] [facility] HbA1c (Bld) [Mass fraction] 12.4 % High 4.3-5.6 [facility] Comment on above: Result Comment: Incr eased risk for diabetes: 5.7 - 6.4 diabetes: >6.4 glycemic control for adults with diabetes: <7.0 Performed By: #### A 1C [facility] eA ####[place] [id number] [place] [address] [facility] ABO/Rh Retypeon 04-28-2023 ABO/RH Recheck Result Positive Normal [facility] Comment on above: Result Comment: PERF ORMED BY: [facility] [address] [place] [address] PATHOLOGIST HEART COORDINATOR AIRAM MAST M.D. Activated partial thrombopla stin time (aPTT) in platelet poor plasma by coagulation aOrdered By: Vinnie Rivas on 04-28-2023 aPTT Coag (PPP) [Time] 27.8 s 25.1-36.5 [facility] Comment on above: A hematocrit value g reater than 55% may lead to inaccurate results in coagulation testing. Patients having hematocrit values >55% require a special collection tube for coagulation studies. Please contact the laboratory at [phone] for redraw instructions. Alanine aminotransferase [En zymatic activity/volume] in Serum or PlasmaOrdered By: Vinnie Rivas on 04-28-2023 ALT [Catalytic activity/Vol] 34 U/L 7-52 [facility] Albumin [Mass/volume] in Ser um or Plasma by Bromocresol green (BCG) dye binding methoOrdered By: Vinnie Rivas on 04-28-2023 Albumin BCG dye [Mass/Vol] 4.0 g/dL 3.5-5.7 [facility] Alkaline phosphatase [Enzyma tic activity/volume] in Serum or PlasmaOrdered By: Vinnie Rivas on 04-28-2023 ALP [Catalytic activity/Vol] 108 U/L 34-104 [facility] Aspartate aminotransferase [ Enzymatic activity/volume] in Serum or PlasmaOrdered By: Vinnie Rivas on 04-28-2023 AST [Catalytic activity/Vol] 46 U/L 13-39 [facility] Automated urine color determ inationOrdered By: Vinnie Rivas on 04-28-2023 Color (U) Yellow Normal Yellow [facility] Comment on above: Order Comment: Name Collection Type:: Kimble Catheter Performed By: #### U A ####[facility] [place] [address] [facility] B-Type Natriuretic Peptideon 04-28-2023 Natriuretic peptide B (Bld) [Mass/Vol] 665.0 pg/mL High 5-100 [facility] Comment on above: Result Comment: PERF ORMED BY: [facility] [address] [place] [address] PATHOLOGIST HEART COORDINATOR AIRAM MAST M.D. Performed By: #### P T, CMP, CBC, BNP, HS TROP, PTT ####[facility] [id number] [place] [address] [facility] Basophils Auto (Bld) [#/Vol] Ordered By: Vinnie Rivas on 04-28-2023 Basophils (Bld) [#/Vol] 0.0 10*3/uL 0.0-0.2 [facility] Basophils/100 WBC Auto (Bld) Ordered By: Vinnie Rivas on 04-28-2023 Basophils/100 WBC (Bld) 0.4 % . [facility] Bilirubin Test strip Ql (U)O rdered By: Vinnie Rivas on 04-28-2023 Bilirubin Ql (U) Negative Negative [facility] Bilirubin.total [Mass/volume ] in Serum or PlasmaOrdered By: Vinnie Rivas on 04-28-2023 Bilirubin [Mass/Vol] 0.3 mg/dL 0.3-1.0 [facility] Calcium [Mass/volume] in Ser um or PlasmaOrdered By: Vinnie Rivas on 04-28-2023 Calcium [Mass/Vol] 9.0 mg/dL 8.6-10.3 [facility] Carbon dioxide, total [Moles /volume] in Serum or PlasmaOrdered By: Vinnie Rivas on 04-28-2023 CO2 [Moles/Vol] 30.4 mmol/L 21.0-31.0 [facility] Chloride [Moles/volume] in S jihan or PlasmaOrdered By: Vinnie Rivas on 04-28-2023 Chloride [Moles/Vol] 101 mmol/L 98-107 [facility] Complete Blood Count Auto Di ffon 04-28-2023 Basophils (Bld) [#/Vol] 0.0 10*3/uL Normal 0.0-0.2 [facility] Comment on above: Result Comment: PERF ORMED BY: [facility] [address] [place] [address] PATHOLOGIST HEART COORDINATOR AIRAM MAST M.D. Performed By: #### P T, CMP, CBC, BNP, HS TROP, PTT ####[address] Basophils/100 WBC (Bld) 0.4 % Normal . [facility] Comment on above: Performed By: #### P T, CMP, CBC, BNP, HS TROP, PTT ####[address] Eosinophils (Bld) [#/Vol] 0.0 10*3/uL Normal 0.0-0.45 [facility] Comment on above: Performed By: #### P T, CMP, CBC, BNP, HS TROP, PTT ####[address] [place] [address] [place] Eosinophils/100 WBC (Bld) 0.5 % Normal . [facility] Comment on above: Performed By: #### P T, CMP, CBC, BNP, HS TROP, PTT ####[address] Erythrocyte distribution width (RBC) [Ratio] 18.0 % High 12.0-14.8 [facility] Comment on above: Performed By: #### P T, CMP, CBC, BNP, HS TROP, PTT ####[address] Hematocrit (Bld) [Volume fraction] 34.8 % Low 38.8-50.0 [facility] Comment on above: Performed By: #### P T, CMP, CBC, BNP, HS TROP, PTT ####[address] Hemoglobin (Bld) [Mass/Vol] 11.5 g/dL Low 13.0-17.0 [facility] Comment on above: Performed By: #### P T, CMP, CBC, BNP, HS TROP, PTT ####[address] Lymphocytes (Bld) [#/Vol] 1.4 10*3/uL Normal 1.00-4.8 [facility] Comment on above: Performed By: #### P T, CMP, CBC, BNP, HS TROP, PTT ####[address] Lymphocytes/100 WBC (Bld) 14.8 % Normal . [facility] Comment on above: Performed By: #### P T, CMP, CBC, BNP, HS TROP, PTT ####[address] MCH (RBC) [Entitic mass] 28.0 pg Normal 27.5-35.2 [facility] Comment on above: Performed By: #### P T, CMP, CBC, BNP, HS TROP, PTT ####[address] [address] [place] MCV (RBC) [Entitic vol] 84.3 fL Normal 83.5-101 [facility] Comment on above: Performed By: #### P T, CMP, CBC, BNP, HS TROP, PTT ####[address] Mean Corpuscular HGB Conc 33.2 g/dL Normal 32.5-35.6 [facility] Comment on above: Performed By: #### P T, CMP, CBC, BNP, HS TROP, PTT ####[address] Monocytes (Bld) [#/Vol] 0.9 10*3/uL High 0.0-0.8 [facility] Comment on above: Performed By: #### P T, CMP, CBC, BNP, HS TROP, PTT ####[address] Monocytes/100 WBC (Bld) 18.61 % Normal 0.00-20.00 [facility] Comment on above: Performed By: #### P T, CMP, CBC, BNP, HS TROP, PTT ####[address] Monocytes/100 WBC (Bld) 9.3 % Normal . [facility] Comment on above: Performed By: #### P T, CMP, CBC, BNP, HS TROP, PTT ####[address] Neutrophils (Bld) [#/Vol] 7.3 10*3/uL Normal 1.8-7.7 [facility] Comment on above: Performed By: #### P T, CMP, CBC, BNP, HS TROP, PTT ####[address] Neutrophils/100 WBC (Bld) 75.0 % Normal . [facility] Comment on above: Performed By: #### P T, CMP, CBC, BNP, HS TROP, PTT ####[place] [address] [place] NRBC% 0.1 /100{WBC} Normal 0-0.5 [facility] Comment on above: Performed By: #### P T, CMP, CBC, BNP, HS TROP, PTT ####[address] Platelet mean volume (Bld) [Entitic vol] 9.3 fL Normal 6.6-10.1 [facility] Comment on above: Performed By: #### P T, CMP, CBC, BNP, HS TROP, PTT ####[address] Platelets (Bld) [#/Vol] 206 10*3/uL Normal 150-450 [facility] Comment on above: Performed By: #### P T, CMP, CBC, BNP, HS TROP, PTT ####[address] RBC (Bld) [#/Vol] 4.12 10*6/uL Normal 3.90-5.60 [facility] Comment on above: Performed By: #### P T, CMP, CBC, BNP, HS TROP, PTT ####[address] WBC (Bld) [#/Vol] 9.7 10*3/uL Normal 4.1-10.5 [facility] Comment on above: Performed By: #### P T, CMP, CBC, BNP, HS TROP, PTT ####[address] Comprehensive Metabolic Pane fabby 04-28-2023 Albumin [Mass/Vol] 4.0 g/dL Normal 3.5-5.7 [facility] Comment on above: Performed By: #### P T, CMP, CBC, BNP, HS TROP, PTT ####[address] Albumin/Globulin [Mass ratio] 1.3 {ratio} Normal [facility] Comment on above: Performed By: #### P T, CMP, CBC, BNP, HS TROP, PTT ####[address] [address] [facility] ALP [Catalytic activity/Vol] 108 U/L High 34-104 [facility] Comment on above: Performed By: #### P T, CMP, CBC, BNP, HS TROP, PTT ####[address] [address] [facility] ALT [Catalytic activity/Vol] 34 U/L Normal 7-52 [facility] Comment on above: Performed By: #### P T, CMP, CBC, BNP, HS TROP, PTT ####[address] [address] [facility] Anion gap [Moles/Vol] 9.5 mmol/L Normal 6.0-15.0 [facility] Comment on above: Performed By: #### P T, CMP, CBC, BNP, HS TROP, PTT ####[place] [id number] [facility] AST [Catalytic activity/Vol] 46 U/L High 13-39 [facility] Comment on above: Performed By: #### P T, CMP, CBC, BNP, HS TROP, PTT ####[place] [id number] [facility] Bilirubin [Mass/Vol] 0.3 mg/dL Normal 0.3-1.0 [facility] Comment on above: Performed By: #### P T, CMP, CBC, BNP, HS TROP, PTT ####[place] [id number] [facility] Calcium [Mass/Vol] 9.0 mg/dL Normal 8.6-10.3 [facility] Comment on above: Performed By: #### P T, CMP, CBC, BNP, HS TROP, PTT ####[place] [id number] [facility] Chloride [Moles/Vol] 101 mmol/L Normal 98-107 [facility] Comment on above: Performed By: #### P T, CMP, CBC, BNP, HS TROP, PTT ####[address] [place] [address] [facility] CO2 [Moles/Vol] 30.4 mmol/L Normal 21.0-31.0 [facility] Comment on above: Performed By: #### P T, CMP, CBC, BNP, HS TROP, PTT ####[place] [address] [place] [address] [facility] Creatinine [Mass/Vol] 0.71 mg/dL Normal 0.70-1.30 [facility] Comment on above: Performed By: #### P T, CMP, CBC, BNP, HS TROP, PTT ####[place] [address] [place] [address] [facility] Creatinine Clr Calc Pharmacy 60.38 [facility] Comment on above: Result Comment: PERF ORMED BY: [facility] [address] [place] [address] PATHOLOGIST HEART COORDINATOR AIRAM MAST M.D. Performed By: #### P T, CMP, CBC, BNP, HS TROP, PTT ####[place] [id number] [facility] GFR/1.73 sq M.predicted MDRD (S/P/Bld) [Vol rate/Area] mL/min/{1.73_m2} [facility] Comment on above: Performed By: #### P T, CMP, CBC, BNP, HS TROP, PTT ####[place] [address] [place] [address] [facility] Globulin (S) [Mass/Vol] 3.2 g/dL [facility] Comment on above: Performed By: #### P T, CMP, CBC, BNP, HS TROP, PTT ####[place] [id number] [facility] Glucose [Mass/Vol] 124 mg/dL High 70-100 [facility] Comment on above: Result Comment: [place] Glucose Reference Range is dependent on time and content of last meal. Glucose of more than 200 mg/dL in a nonstressed, ambulatory subject supports the diagnosis of Diabetes Mellitus. ADA recommended reference range Performed By: #### P T, CMP, CBC, BNP, HS TROP, PTT ####[facility] [id number] [place] [address] [facility] Potassium [Moles/Vol] 4.9 mmol/L Normal 3.5-5.1 [facility] Comment on above: Performed By: #### P T, CMP, CBC, BNP, HS TROP, PTT ####[place] [address] [place] [address] [facility] Protein [Mass/Vol] 7.2 g/dL Normal 6.4-8.9 [facility] Comment on above: Performed By: #### P T, CMP, CBC, BNP, HS TROP, PTT ####[place] [address] [place] [address] [facility] Sodium [Moles/Vol] 136 mmol/L Normal 136-145 [facility] Comment on above: Performed By: #### P T, CMP, CBC, BNP, HS TROP, PTT ####[place] [address] [place] [id number] [facility] Urea nitrogen [Mass/Vol] 15 mg/dL Normal 7-25 [facility] Comment on above: Performed By: #### P T, CMP, CBC, BNP, HS TROP, PTT ####[place] [address] [place] [id number] [facility] Creatinine [Mass/volume] in Serum or PlasmaOrdered By: Vinnie Rivas on 04-28-2023 Creatinine [Mass/Vol] 0.71 mg/dL 0.70-1.30 [facility] ECG 12 lead ECGon 04-28-2023 ECG 12 lead ECG [facility] [address] [place] [address] [place] [address] Electrocardiograph Report Signed Patient: Ashwini Vickers MR#: [id number] 353 : 1935 Acct:[id number] Age/Sex: 88 / M ADM Date: 04/28/23 Loc: 4 Room: 5L7441-6 Type: ADM IN Attending Dr: Sushant Cordon [...] Atrial fibrillation Confirmed by Willi Lawrence DO ([id number]) on 04/28/2023 5:36:13 PM Referred By: Electronically Signed By:Willi Lawrence DO Transcribed By: MUS Signed By Willi Lawrence DO 3 173 [facility] ECG 12 lead ECG [facility] [place] [address] Electrocardiograph Report Signed Patient: Ashwini Vickers MR#: [id number] 353 : 1935 Acct:[id number] Age/Sex: 88 / M ADM Date: 04/28/23 Loc: Room: [address] [place] [address] Type: ADM IN Attending Dr: Sushant Cordon [...] Sinus rhythm Confirmed by Willi Lawrence DO ([id number]) on 04/28/2023 5:36:13 PM Referred By: Electronically Signed By:Willi Lawrence DO Transcribed By: MUS Signed By Willi Lawrence DO 3 173 [facility] ECG 12 lead ECG [facility] [place] [address] Electrocardiograph Report Signed Patient: Ashwini Vickers MR#: [id number] 353 : 1935 Acct:[id number] Age/Sex: 88 / M ADM Date: 04/28/23 Loc: ER Room: Type: [facility] ER Attending Dr: Ordering Provider: Vinnie [...] be adversely affected Sinus rhythm with short DC with occasional and consecutive premature ventricular complexes Marked ST abnormality, 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 [facility] Erythrocyte distribution wid th Auto (RBC) [Ratio]Ordered By: Vinnie Rivas on 04-28-2023 Erythrocyte distribution width (RBC) [Ratio] 18.0 % 12.0-14.8 [facility] Fructosamineon 04-28-2023 Fructosamine 565 umol/L High 0-285 [facility] Comment on above: Result Comment: Publ ished reference interval for apparently healthy subjects between age 20 and 60 is 205 - 285 umol/L and in a poorly controlled diabetic population is 228 - 563 umol/L with a mean of 396 umol/L. Performed at: - [facility] [address] [place], [place] [id number] Daycare Manager: Arturo Boles PhD, Phone: [phone] PERFORMED BY: [facility] [address] [place] [address] PATHOLOGIST HEART COORDINATOR AIRAM MAST M.D. Performed By: #### G LULS #### Point of Care testing , Fructosamine [Moles/volume] in Serum or PlasmaOrdered By: Sushant Cordon on 04-28-2023 Fructosamine [Moles/Vol] 565 umol/L 0-285 [facility] Comment on above: Published reference interval for apparently healthysubjects between age 20 and 60 is 205 - 285 umol/L and in apoorly controlled diabetic population is 228 - 563 umol/Lwith a mean of 396 umol/L.Performed at: - [facility] [id number] Director: Arturo Boles PhD, Phone: [phone] Globulin Calc (S) [Mass/Vol] Ordered By: Vinnie Rivas on 04-28-2023 Globulin (S) [Mass/Vol] 3.2 g/dL [facility] Glucose Glucometer (BldC) [M ass/Vol]Ordered By: Sushant Cordon on 04-28-2023 Glucose [Mass/Vol] 137 mg/dL [facility] Comment on above: Random Glucose Refer ence Range is dependent on time and content of last meal. Glucose of more than 200 mg/dL in a nonstressed, ambulatory subject supports the diagnosis of Diabetes Mellitus. Glucose Poct Glucometerson 1 Glucose [Mass/Vol] 399 mg/dL Normal [facility] Comment on above: Result Comment: [place] om Glucose Reference Range is dependent on time and content of last meal. Glucose of more than 200 mg/dL in a nonstressed, ambulatory subject supports the diagnosis of Diabetes Mellitus. PERFORMED BY: [facility] [address] [place] [address] PATHOLOGIST HEART COORDINATOR AIRAM MAST M.D. Performed By: #### G LULS ####Point of Care testing, Commemt1 Glu2: Cleaned Meter [facility] Comment on above: Result Comment: PERF ORMED BY: [facility] [address] [place] [id number] PATHOLOGIST HEART COORDINATOR AIRAM MAST M.D. Performed By: #### G LULS ####Point of Care testing, Glucose [Mass/Vol] 156 mg/dL [facility] Comment on above: Result Comment: [place] om Glucose Reference Range is dependent on time and content of last meal. Glucose of more than 200 mg/dL in a nonstressed, ambulatory subject supports the diagnosis of Diabetes Mellitus. Performed By: #### G LULS ####Point of Care testing, Glucose [Mass/Vol] 137 mg/dL [facility] Comment on above: Result Comment: [place] om Glucose Reference Range is dependent on time and content of last meal. Glucose of more than 200 mg/dL in a nonstressed, ambulatory subject supports the diagnosis of Diabetes Mellitus. PERFORMED BY: [facility] [address] [place] [address] PATHOLOGIST HEART COORDINATOR AIRAM MAST M.D. Performed By: #### G LULS ####Point of Care testing, Commemt1 Glu2: Cleaned Meter [facility] Comment on above: Performed By: #### G LULS ####Point of Care testing, Commemt2 WILL NOTIFY DR/KARIN [facility] Comment on above: Result Comment: PERF ORMED BY: [facility] [address] [place] [address] PATHOLOGIST HEART COORDINATOR AIRAM MAST M.D. Performed By: #### G LULS ####Point of Care testing, Glucose [Mass/Vol] 171 mg/dL [facility] Comment on above: Result Comment: [place] om Glucose Reference Range is dependent on time and content of last meal. Glucose of more than 200 mg/dL in a nonstressed, ambulatory subject supports the diagnosis of Diabetes Mellitus. Performed By: #### G LULS ####Point of Care testing, Glucose [Mass/volume] in Ser um or PlasmaOrdered By: Vinnie Rivas on 04-28-2023 Glucose [Mass/Vol] 124 mg/dL 70-100 [facility] Comment on above: ADA recommended refe rence rangeRandom Glucose Reference Range is dependent on time and content of last meal. Glucose of more than 200 mg/dL in a nonstressed, ambulatory subject supports the diagnosis of Diabetes Mellitus. Glucose mean value [Mass/vol ume] in Blood Estimated from glycated hemoglobinOrdered By: Sushant Cordon on 04-28-2023 Average glucose Estimated from glycated hemoglobin (Bld) [Mass/Vol] 309 mg/dL [facility] Hematocrit Auto (Bld) [Volum e fraction]Ordered By: Vinnie Rivas on 04-28-2023 Hematocrit (Bld) [Volume fraction] 34.8 % 38.8-50.0 [facility] Hemoglobin A1c percentageOrd ered By: Sushant Cordon on 04-28-2023 HbA1c (Bld) [Mass fraction] 12.4 % 4.3-5.6 [facility] Comment on above: Increased risk for d iabetes: 5.7 - 6.4diabetes: >6.4glycemic control for adults with diabetes: <7.0 Hemoglobin [Mass/volume] in BloodOrdered By: Vinnie Rivas on 04-28-2023 Hemoglobin (Bld) [Mass/Vol] 11.5 g/dL 13.0-17.0 [facility] INR in Platelet poor plasma by Coagulation assayOrdered By: Vinnie Rivas on 04-28-2023 INR Coag (PPP) [Relative time] 1.0 {INR} [facility] Comment on above: INR Therapeutic Rang [...] on 04-28-2023 Ketones (U) [Mass/Vol] Negative Negative [facility] Leukocytes [#/volume] correc robert for nucleated erythrocytes in Blood by Automated counOrdered By: Vinnie Rivas on 04-28-2023 WBC corrected for nucl RBC Auto (Bld) [#/Vol] 9.7 10*3/uL 4.1-10.5 [facility] Lymphocytes Auto (Bld) [#/Vo l]Ordered By: Vinnie Rivas on 04-28-2023 Lymphocytes (Bld) [#/Vol] 1.4 10*3/uL 1.00-4.8 [facility] Lymphocytes/100 WBC Auto (Bl d)Ordered By: Vinnie Rivas on 04-28-2023 Lymphocytes/100 WBC (Bld) 14.8 % . [facility] MCH Auto (RBC) [Entitic mass ]Ordered By: Vinnie Rivas on 04-28-2023 MCH (RBC) [Entitic mass] 28.0 pg 27.5-35.2 [facility] MCHC Auto (RBC) [Mass/Vol]Or dered By: Vinnie Rivas on 04-28-2023 MCHC (RBC) [Mass/Vol] 33.2 g/dL 32.5-35.6 [facility] MCV Auto (RBC) [Entitic vol] Ordered By: Vinnie Rivas on 04-28-2023 MCV (RBC) [Entitic vol] 84.3 fL 83.5-101 [facility] Monocyte distribution width [Entitic volume] in Blood by AutomatedOrdered By: Vinnie Rivas on 04-28-2023 Monocyte distribution width Auto (Bld) [Entitic vol] 18.61 % 0.00-20.00 [facility] Monocytes Auto (Bld) [#/Vol] Ordered By: Vinnie Rivas on 04-28-2023 Monocytes (Bld) [#/Vol] 0.9 10*3/uL 0.0-0.8 [facility] Monocytes/100 WBC Auto (Bld) Ordered By: Vinnie Rivas on 04-28-2023 Monocytes/100 WBC (Bld) 9.3 % . [facility] Natriuretic peptide B [Mass/ Vol]Ordered By: Vinnie Rivas on 04-28-2023 Natriuretic peptide B (Bld) [Mass/Vol] 665.0 pg/mL 5-100 [facility] Neutrophils Auto (Bld) [#/Vo l]Ordered By: Vinnie Rivas on 04-28-2023 Neutrophils (Bld) [#/Vol] 7.3 10*3/uL 1.8-7.7 [facility] Neutrophils/100 WBC Auto (Bl d)Ordered By: Vinnie Rivas on 04-28-2023 Neutrophils/100 WBC (Bld) 75.0 % . [facility] Nitrite Test strip Ql (U)Ord ered By: Vinnie Rivas on 04-28-2023 Nitrite Ql (U) Negative Negative [facility] No Panel InformationOrdered By: Vinnie Rivas on 04-28-2023 Estimated GFR (CKD-EPI) > 60.0 mL/Min [facility] Pharmacy Creatinine Clearance (Chem 60.38 [facility] Nucleated erythrocytes [Pres ence] in Blood by Automated countOrdered By: Vinnie Rivas on 04-28-2023 Nucleated RBC Auto Ql (Bld) 0.1 /100{WBC} 0-0.5 [facility] Partial Thromboplastin Timeo n 04-28-2023 aPTT Coag (Bld) [Time] 27.8 s Normal 25.1-36.5 [facility] Comment on above: Result Comment: A he matocrit value greater than 55% may lead to inaccurate results in coagulation testing. Patients having hematocrit values >55% require a special collection tube for coagulation studies. Please contact the laboratory at [phone] for redraw instructions. PERFORMED BY: [facility] [address] [place] [address] PATHOLOGIST HEART COORDINATOR AIRAM MAST M.D. Performed By: #### P T, CMP, CBC, BNP, HS TROP, PTT ####[facility] [id number] [place] [address] [facility] Platelet mean volume Auto (B ld) [Entitic vol]Ordered By: Vinnie Rivas on 04-28-2023 Platelet mean volume (Bld) [Entitic vol] 9.3 fL 6.6-10.1 [facility] Platelets Auto (Bld) [#/Vol] Ordered By: Vinnie Rivas on 04-28-2023 Platelets (Bld) [#/Vol] 206 10*3/uL 150-450 [facility] Potassium [Moles/volume] in Serum or PlasmaOrdered By: Vinnie Rivas on 04-28-2023 Potassium [Moles/Vol] 4.9 mmol/L 3.5-5.1 [facility] Protein Auto test strip (U) [Mass/Vol]Ordered By: Vinnie Rivas on 04-28-2023 Protein (U) [Mass/Vol] Negative Negative [facility] Protein [Mass/volume] in Ser um or PlasmaOrdered By: Vinnie Rivas on 04-28-2023 Protein [Mass/Vol] 7.2 g/dL 6.4-8.9 [facility] Prothrombin Time INRon 04-28 INR Coag (PPP) [Relative time] 1.0 {INR} Normal [facility] Comment on above: Result Comment: INR [...] T, CMP, CBC, BNP, HS TROP, PTT ####[facility] [id number] [place] [id number] [facility] PT Coag (PPP) [Time] 11.8 s Normal 9.0-12.9 [facility] Comment on above: Result Comment: A he matocrit value greater than 55% may lead to inaccurate results in coagulation testing. Patients having hematocrit values >55% require a special collection tube for coagulation studies. Please contact the laboratory at [phone] for redraw instructions. Performed By: #### P T, CMP, CBC, BNP, HS TROP, PTT ####[facility] [id number] [place] [address] [facility] Prothrombin time (PT)Ordered By: Vinnie Rivas on 04-28-2023 PT Coag (PPP) [Time] 11.8 s 9.0-12.9 [facility] Comment on above: A hematocrit value g reater than 55% may lead to inaccurate results in coagulation testing. Patients having hematocrit values >55% require a special collection tube for coagulation studies. Please contact the laboratory at [phone] for redraw instructions. RBC Auto (Bld) [#/Vol]Ordere d By: Vinnie Rivas on 04-28-2023 RBC (Bld) [#/Vol] 4.12 10*6/uL 3.90-5.60 [facility] Serum or plasma albumin/glob ulin mass ratioOrdered By: Vinnie Rivas on 04-28-2023 Albumin/Globulin [Mass ratio] 1.3 {ratio} [facility] Serum or plasma anion gap de terminationOrdered By: Vinnie Rivas on 04-28-2023 Anion gap [Moles/Vol] 9.5 mmol/L 6.0-15.0 [facility] Sodium [Moles/volume] in Ser um or PlasmaOrdered By: Vinnie Rivas on 04-28-2023 Sodium [Moles/Vol] 136 mmol/L 136-145 [facility] Specific gravity Auto test s trip (U) [Rel density]Ordered By: Vinnie Rivas on 04-28-2023 Specific gravity (U) [Rel density] 1.009 1.001-1.03 0 [facility] Troponin I High Sensitivityo n 04-28-2023 Troponin I High Sensitivity 38.9 pg/mL High 0.0-20.0 [facility] Comment on above: Result Comment: PERF ORMED BY: [facility] [address] [facility] [place] [address] PATHOLOGIST HEART COORDINATOR AIRAM MAST M.D. Performed By: #### H S TROP ####[facility] [place] [address] [facility] Troponin I High Sensitivity 38.6 pg/mL High 0.0-20.0 [facility] Comment on above: Result Comment: PERF ORMED BY: [facility] [address] [facility] [place] [address] PATHOLOGIST HEART COORDINATOR AIRAM MAST M.D. Performed By: #### H S TROP ####[place] [id number] [facility] Troponin I High Sensitivity 38.3 pg/mL High 0.0-20.0 [facility] Comment on above: Result Comment: PERF ORMED BY: [facility] [address] [place] [address] PATHOLOGIST HEART COORDINATOR AIRAM MAST M.D. Performed By: #### H S TROP ####[place] [id number] [facility] Troponin I High Sensitivity 35.5 pg/mL High 0.0-20.0 [facility] Comment on above: Result Comment: PERF ORMED BY: [facility] [address] [facility] [place] [address] PATHOLOGIST HEART COORDINATOR AIRAM MAST M.D. Performed By: #### P T, CMP, CBC, BNP, HS TROP, PTT ####[place] [id number] [facility] Troponin I.cardiac [Mass/vol ume] in Serum or Plasma by Detection limit <= 0.01 ng/Ordered By: Vinnie Rivas on 04-28-2023 Troponin I.cardiac DL <= 0.01 ng/mL [Mass/Vol] 38.3 pg/mL 0.0-20.0 [facility] Urea nitrogen [Mass/volume] in Serum or PlasmaOrdered By: Vinnie Rivas on 04-28-2023 Urea nitrogen [Mass/Vol] 15 mg/dL 02-02 [facility] Urinalysison 04-28-2023 Appearance (U) Clear Normal Clear [facility] Comment on above: Order Comment: Name Collection Type:: Kimble Catheter Performed By: #### U A ####[place] [id number] [facility] Bilirubin,Urine Negative Normal Negative [facility] Comment on above: Order Comment: Name Collection Type:: Kimble Catheter Performed By: #### U A ####[address] [address] [facility] Glucose Ql (U) Normal Normal Normal [facility] Comment on above: Order Comment: Name Collection Type:: Kimble Catheter Performed By: #### U A ####[address] [address] [facility] Ketones Ql (U) Negative Normal Negative [facility] Comment on above: Order Comment: Name Collection Type:: Kimble Catheter Performed By: #### U A ####[address] [address] [facility] Leukocyte esterase Test strip Ql (U) Negative Normal Negative [facility] Comment on above: Order Comment: Name Collection Type:: Kimble Catheter Performed By: #### U A ####[address] [address] [facility] Nitrite,Urine Negative Normal Negative [facility] Comment on above: Order Comment: Name Collection Type:: Kimble Catheter Performed By: #### U A ####[address] [address] [facility] Occult Blood,Urine Negative Normal Negative [facility] Comment on above: Order Comment: Name Collection Type:: Kimble Catheter Result Comment: PERF ORMED BY: [facility] [address] [place] [id number] PATHOLOGIST HEART COORDINATOR AIRAM MAST M.D. Performed By: #### U A ####[address] [address] [facility] Protein,Urine Negative Normal Negative [facility] Comment on above: Order Comment: Name Collection Type:: Kimble Catheter Performed By: #### U A ####[address] [address] [facility] Specificy [place],Urine 1.009 Normal 1.001-1.03 0 [facility] Comment on above: Order Comment: Name Collection Type:: Kimble Catheter Performed By: #### U A ####[address] [address] [facility] Urobilinogen,Urine Normal Normal Normal [facility] Comment on above: Order Comment: Name Collection Type:: Kimble Catheter Performed By: #### U A ####[place] [id number] Urine clarity by refractomet ry automatedOrdered By: Vinnie Rivas on 04-28-2023 Clarity Refractometry automated (U) Clear Clear [facility] Urine glucose measurement by automated test strip (mass/volume)Ordered By: Vinnie Rivas on 04-28-2023 Glucose Auto test strip (U) [Mass/Vol] Normal mg/dL Normal [facility] Urine hemoglobin detection b y automated test stripOrdered By: Vinnie Rivas on 04-28-2023 Hemoglobin Auto test strip Ql (U) Negative Negative [facility] Urine leukocyte esterase det ection by automated test stripOrdered By: Vinnie Rivas on 04-28-2023 Leukocyte esterase Auto test strip Ql (U) Negative Negative [facility] Urine pH measurement by auto mated test stripOrdered By: Vinnie Rivas on 04-28-2023 pH (U) 6.5 [pH] Normal 5.0-9.0 [facility] Comment on above: Order Comment: Name Collection Type:: Kimble Catheter Performed By: #### U A ####[facility] Urobilinogen Auto test strip (U) [Mass/Vol]Ordered By: Vinnie Rivas on 04-28-2023 Urobilinogen (U) [Mass/Vol] Normal mg/dL Normal [facility] WBC Auto (Bld) [#/Vol]Ordere d By: Vinnie Rivas on 04-28-2023 WBC (Bld) [#/Vol] 9.7 10*3/uL 4.1-10.5 [facility] XR femur RT 2V*on 04-28-2023 XR femur RT 2V* [facility] [address] [place] [address] [id number] XRay Report Signed Patient: Ashwini Vickers MR#: [id number] : 1935 Acct:[id number] Age/Sex: 88 / M ADM Date: 04/28/23 Loc: ER Room: Type: [facility] ER Attending Dr: Copies to: Vinnie Rivas PA-C Ordering Provider: Vinnie Rivas PA-C Date of Service: 04/28/23 XR/XR chest 1V portable: Fall ([id number]) XR/XR femur RT 2V*: Fall ([id number]) XR/XR hip RT min 2V(w/wo pelvis)*: Fall [...] Sheldon Johnson M.D.04/28/2023 2:48 PM Dictation Location: [place] [address] Transcribed By: [facility] 04/28/23 1448 Dictated By: Sheldon Johnson DO 04/28/23 1437 Signed By: 04/28/23 1448 [facility] Coding Summaryon 04-26-2023 Coding Summary HTMLBase 64 MvrrtiaaBVf1vJc+PGhlYWQ+PE 9XYFErB32xsVWljT0wM1ZFVAgG EptpTTPTNRlTAkDakmUkDO7tiX NjZXJu IC8+KO4aZJKmSkdftJJuf7Y1pG U4X08yrm2cMMflpRZ9UKOdXfTg vgmcc9wuzSe7ZTkpRbmpNoOu VIMmcG63QRM3xI39Cz05nKPxdB Mnr4onrIu7HuRwKMSmRIF6tXck BLbwb3KsDOZeC49nvNPwz9I8 PJRguDvepVCvDdPniSR6jX9hBX twhnuzm4xyibnpDcv4ut00eULu y9S8iCF0J2ZatnX4TTLkbESj TzpbvZQIpI1jlpnls4bekyimIv LnEPJmHQu3OCn2VKQidOoqHjRa CC65QSF6DGAnifQxG6RgJICv pQdpKiS2m1B0Xi8FV2TUIapuI5 VNTUFSWTwvdGQ+JP46lm26J8Xf FdatUxo3YXZpFHS4dTW2aO7f JFMrFYfqp4C6yHP5F6KpbmRvvi 0je2uqVPVjUMvdJ71lrLLuo7J5 IZSrsLZ5VIXonBnpUnRgtH59 Oyc+BPHqzBytl5JzAlanl8azb1 cygXo4EtafOGIbnuUpnKpkCZH5 h4IkFe4eGEVskJX1aIX5eW2n RjMfOtV4ROtiC842ZpGbzTHfMe gzQ41sM4QuqAR+NCZeHps0XCVb oNpyKX9uS9KsOPAlffuphGOg xAxaBV6uFFCfjfkoUURbsZ7rVZ CwV4p2DyQrPaT5TFnxX0JsKICv rdcjMl31rS3tJxYlVcB5IGzd Q6SeykD8JNGokKOxGUlbNOV5S3 0xk1R8WZQuVPScDTU0sAV7pQ1q bGlnbjogbGVmdDsgdmVydGlj RJarTPooU131ZUHcuZjoTmCbFU luZyBEYXRlOiAgMTAvMTYvMjAy MzwvdGQ+HAGgBWW4dMowVIRn zINzQKbqRx0bgWcxlTirJT4qDV UitohwRIAitB8wBXFhnMVhcFqv TF2tJULdbuzlw603KbHsMGJ9 TZRijQPnX7MljD9cDkMrNAPrLD GeZ8DsaYAnCVxuN013XNjyBhH8 VNYweoCvQ0EoHMYdeXkmVdN2 y2A5Mc4Jx1MavvmoF5WyuABtKv SrHosmETr4R7OtDkaezDL+PC90 ITLaOX47BMf6XDA9uHmiDZzb CLSlN5TwgF9uMfZeGYKhSYLwMy c+PHRhYmxlIHdpZHRoPScxMDAl CvIydFanEM7pKl8uAQDfRAKq wFvmsVToBhMti0wiDLGgAFomQD 7lnGbtI2TjkUS9FXOwj4g4Aw11 I34mX4VugCG+NKIhcMT5yOI1 aI2bSbEhPnP3APhxB306QuEvyR IrMdnve8icy1eraIi7RvJ2CLBk pbOqwFboQCE0g5VlMq40C81n IHdpZHRoPSIxNSUiIHZhbGlnbj 0esB8uQv5+LVGzzXI6lSN8sY3d AgXaAhA6QMnxL660RuKiqJRq Wrzmn0nhi6texVk3EmCjHWOuvj CyeFqgRUO9h8NlFj65A2JiuNvx u7DzLcg1sa74iEZra1Y9lNH4 S0JxXIYavzyptHVucCxlKK4aIA RhawthUFOxyP2uFRWtB2c1TpJr MgM4LTxzO9BlivW5GAHbnUQc RUEaxAOLeG3hkiaxr7saxeawVy EhBOZyTLu5QOd3SYThoHjjXzPu STS9PwR7KWL2rCZniL9kgNpg vmnvaF2gExw+EGP2aPOwyQGVSK 1lOjwvdGQ+EAQmEWN7dTzxAEuz BPYeoU2cMJOaA8b5LlDgKnD4 SHhkO8XuymL0MFWjiAEqWMPjnM YDrK3kkfdet1olenyyNeJwWENr DNp0YPz4ABMicYllBiKbXCF4 LdI3PEL5iUHrpE1xhLwuiuohuO 9wOyc+LxzfrWoqIJZ2MIv4T3Qi Tss8IRHwpUsrJY4shNVfOIgv Vg5iuWdrmWjoTT2xKSGgbuank3 04CgAnk3tdCDIisAJcASceXMW1 N50fz3Z0KFLeENLgLXJ5aAE5 vT2chSkrcqblaKFltHffvyKfmV sySMgkGBhxG777NPFaqDpzLmBi QMu6A4EvRfx9UCRumWgtEX5p pYOnAOruSs7ksOwrlJzfJX2zEO Peplxzd872DaAvs1tnLGBwcCEu VByiSUY4E59hd2H1ZKUoFYJa AXV7aUD7aF0kjIhlpkloqCQvwV uqhfJhhZwvEUnkVVxfX701RNJl dUbaRdFdiHh7O7OhTrw4FATe qBgmJM0zkSFfNWgiJd0qyZmlsW dnAG2qPKNzqmqfl749TpOkp5zj LGAokKTpRHicTKB3C85lk6U7 VSCcGHWkXNO4mPM4pW8mdQaxxe ogbGVmdDsgdmVydGljYWwtYWxp C558JVHqfElaJcPvfXqewnLq WEruCSq0N3XnGalghOW+PC90YW DnEQ75dEDbcIWph6fceUa8TbJi ETGfSKO6oNqnKSwuz8YzHMNp T26ieJEnm9R9KWLzaKnxrVXgOg ZrjTT6lX6hRCufewrav2dhejwt Orilt7fybq18oN99R11tUAhf SDSlHLIsYTQlWNEesHgyrh7cuS 9wIi8+WRYrnTY3iJF8mX9yEYHm HiP3PLfaK443RaRttTVhMvvn h5kmc5afnNc7VuF3ADPjebTbtI peFJZ3o9MzUq88Y11qLTywLFLe LYHpVYYfICTafNiety5taC6y Ii8+WZYduAG6eVB8aK6zVtLqPv M4UPbtS149PpHyyNSfJrxbI28f D8BjrED+KDCbAcf7UBMggJzh EN0hkQPeZZulDq6vKVH8ArClTt FgPUpiD1IaPCPpjnvtvueqpXG7 OOJgFCIalY23Sv6mhPqvQPKm eLVWsY3aaysmj8ntiemzSkEkST AjXNi5QUi2KSUqsGrcWbOhEIQ4 HdX7EEO6vZTlbT9mjLbkxeot eJ0xN6PuNXDhxlkdXp79nK1kWm NbLnG5PEfaFzw+X3ZLLh6YKCAF ZB8HWQicTaookGM+PHRkIHN0 dLwwLDrqBNTyxK8rZBFbC2l6Ku LfWjD4TZduR2JyZQNwpulqBz76 iU4fQyZkTbB2VCdpO7KsnzL6 EOWpxOOkBXkuSAI2C40jr1O6SO UoFDGfRXD7vLA1gM2xqHatdnjb bGVmdDsgdmVydGljYWwtYWxp T263JKIolHrsGwU6XdFqKaQ6Op w0P7GkLdo8GWDauVlrWP7rlFHf IIjmVk7dnXoxhWeoFT8dKJYw dojkJQXsmV7jBPJqcUHzdDuxMS 6fVMBgfmgdp781DcNjPKH5XMTl zPQzU2LorS4bWjZsJEAnUQFi S0IpdSPxDZynN340GHwiNeY8CM WczlUrM2XsOKEbjSgzPqJ2i8D6 Iu68ByKOWLCngoribCA+PHRk PAO4sWrlBHejURMwnF2cEQOcN7 v2DtAbNcZ9NSwoO1TrONLcmjsq Bl50fH7cZwMwCcY5OXprA6Pe zgS7ENMwtNCtQVijUQG7X43gi6 Y6WEFdJGHdXHI5sDQ8tC8tpFvu bjogbGVmdDsgdmVydGljYWwt IAqwF665UVMgoBffOr2IXCQ7J2 PzZhn2DACndHkwIS9qvFRtCNtn Im5vrTjpkShiSJ7rWKZroqfv FAQgcM0oDHUdgLJemWddDI2sUS Tezcutk260YnXnAXF8UXDtnJGb J3WnjE5fNgKaCDLhVSFiZ3Ah bQWjKEqyH540NGvgUgX3ZZSkch AoS1WxVGSgtJptMvY6h7A5Vs8A UDwvdGQ+UH95vo62J7NjJmgw Pyo7YFWpQWI4fJC2kE1fJILoBD cwk2P5pIJ7A4SvjyKrab9ba3jd OIWeZGpoK63pdLKye6B2LCOu tFQ6KFQrhWkbWaCraJ43Fae+PG WvoWmxi7BjJnaht5vnq4dlhFq4 DjVbZGObdbEihTbpYND5i9Ga Rt35D69yYHkqYUOkNHGkQJTyER GyoXkigp2qnY2zCd6+PGNvbCB3 kHS4bU9rIgGuUcD5WQabV796 CcUsqJQkEstum5vol4nssTz0Kx KvPUHnjeAxuPfbSYQ9w6WaUd46 Z4JncIpjc4XmJxk7bi55xXSj m4D8zWJ3Y6CwSFJsapxliVCdrL ddNK9hBIGyukhdCGZojK8pYMNz V1i2AfHrZcD9GWxpY3EkxjT2 ULApqJSlPMMmlFTDlB9rkmtfg3 mnezvcKhHqBRFfFIg2EZp5MEPd tXzpIxQwDVM4XeI9TIK3bGBt bV3czGvrvqrcbW8oKwa+UGh5c2 ovbUCmGX8ceMP0JD22BR67yEOa h3R0gTP1S8CbSWWniuuwiyyw nCR2RFMwHDHmuY44Af4wyLenMk 0uJDYcZNN2LDMyuATtP7QnmD0e RhHyHDGbELCpR6VdkTMzGLta S937BAfkCpB2ABZsbsZbQ0MnSY ElvGybDsR4z6Z7Be6JYA20YW88 YS39dIAen6U8gXR9P6SgZXQp zluweqgxuHA7WZKrPGKcxB64Kb 9ytZxnQc4iIHXyBRW8FLNxvOUv Y3CdjB7bKsDrXUElFSMtZ0Dh dCIdOJknD754OVmePsN9RSDlcw PuD8HhIOMetXdbVcM3z9F6Cr2G Bg19CS52ZP93iVIkg4N6lIR6 G9RyQWNnwftpwycstPQ9RMHqOP XhbV25Bw0nkHxfXy3eCZLnLYY8 QWBldWNvU4WogK4gRtIpZVHq MQZlN5QcgHZoTJtnP083PIfuRk W5ECFkaqEqH9IlKBQtxOadTnE3 s4R4Ds9SEUrwjfh7Q3AnTndg dHI+TP62YGVeAI78gFQbvYRxg6 wtyNu1XdKpYVNpGGU9nLonUPeq m2WrXFPiU91gdFPdv4R8HQBs bGx (more content not included)... [facility] Consent Formson 04-26-2023 Consent Forms [id number]#[id number] [facility] BUN/Creat Ratioon 04-23-2023 eGFR Non AA >60 Invalid Interpretation Code [facility] Comment on above: Performed By: #### 1 [id number] #### [facility] (DEFAULT) [address] [place] [address] 96428 eGFR AA >60 Invalid Interpretation Code [facility] Comment on above: Performed By: #### 1 [id number] #### [facility] (DEFAULT) [address] [place] [address]1903 Creatinine [Mass/Vol] 0.69 mg/dL Low 0.90-1.30 [facility] Comment on above: Performed By: #### 1 [id number] #### [facility] (DEFAULT) [address] [place] [address]151 Urea nitrogen [Mass/Vol] 14 mg/dL Normal 8-26 [facility] Comment on above: Performed By: #### 1 [id number] #### [facility] (DEFAULT) [address] [place] [address] 49644 Urea nitrogen/Creatinine [Mass ratio] 20.2 mg/mg High 4.6-16.2 [facility] Comment on above: Performed By: #### 1 [id number] #### [facility] (DEFAULT) [address] [place] [address] Urogramon 04-23-2023 CT Urogram CLINICAL HISTORY: [...] MD 04/23/23 3:17 pm Technologist: DARYA MANN [facility] Provider [place] 04-21-2023 Provider Orders [id number]#1.00OTGTIF F [facility] Provider [place] 03-16-2023 Provider Orders [id number]#1.00OTGTIFF [facility] UA RANDOMon 06-05-2022 Bilirubin Ql (U) Negative Normal NEGATIVE [facility] Comment on above: Performed By: #### C MP, LIPID #### [facility] [address] [address] [address] Kylee Bunch Clarity (U) CLEAR Normal CLEAR [facility] Comment on above: Performed By: #### C MP, LIPID #### [facility] [address] [place], [place] [address] Dr. Kylee Bunch Color (U) YELLOW Normal YELLOW [facility] Comment on above: Performed By: #### C MP, LIPID #### [facility] [address] [address] [address] Kylee Bunch Glucose Ql (U) Negative Normal NEGATIVE [facility] Comment on above: Performed By: #### C MP, LIPID #### [facility] [address] [address] [address] Kylee Bunch Hemoglobin Ql (U) TRACE-INTACT Abnormal NEGATIVE [facility] Comment on above: Performed By: #### C MP, LIPID #### [facility] [address] [address] [address] Kylee Bunch Ketones Ql (U) TRACE Abnormal NEGATIVE [facility] Comment on above: Performed By: #### C MP, LIPID #### [facility] [address] [place] [address] Dr. Kylee Bunch LEUKOCYTES Negative Normal NEGATIVE [facility] Comment on above: Performed By: #### C MP, LIPID #### [facility] [address] [address] [address] Kylee Bunch Nitrite Ql (U) Negative Normal NEGATIVE [facility] Comment on above: Performed By: #### C MP, LIPID #### [facility] [address] [place] [address] Dr. Kylee Bunch pH (U) 5.5 [pH] Normal 5-9 [facility] Comment on above: Performed By: #### C MP, LIPID #### [facility] [address] [place] [address] Dr. Kylee Bunch SPEC GRAVITY >=1.030 Abnormal 1.005-<=1. 025 [facility] Comment on above: Performed By: #### C MP, LIPID #### [facility] [address] [place] [address] Dr. Kylee Bunch UA PROTEIN Negative Normal NEGATIVE/ TRACE [facility] Comment on above: Performed By: #### C MP, LIPID #### [facility] [address] [place] [address] Dr. Kylee Bunch Urobilinogen Qn (U) 0.2 {Gemini'U}/dL Normal 0.2 - 1. 0 [facility] Comment on above: Performed By: #### C MP, LIPID #### [facility] [address] [place] [address] Dr. Kylee Bunch CBC AUTO DIFFon 05-14-2022 BASO # 0.0 103/ul Normal 0.0-0.1 [facility] Comment on above: Performed By: #### C MP, LIPID #### [facility] [address] [place] [address] Dr. Kylee Bunch Basophils/100 WBC (Bld) 0.7 % Normal 0.2-2.0 [facility] Comment on above: Performed By: #### C MP, LIPID #### [facility] [address] [place] [address] Dr. Kylee Bunch EO # 0.1 103/ul Normal 0.0-0.7 [facility] Comment on above: Performed By: #### C MP, LIPID #### [facility] [address] [place] [address] Dr. Kylee Bunch Eosinophils/100 WBC (Bld) 2.6 % Normal 0.9-7.0 [facility] Comment on above: Performed By: #### C MP, LIPID #### [facility] [address] [place] [address] Dr. Kylee Bunch Erythrocyte distribution width (RBC) [Ratio] 17.2 % Critically high 11.0-15.0 [facility] Comment on above: Performed By: #### C MP, LIPID #### [facility] [address] [place] [address] Dr. Kylee Bunch Hematocrit (Bld) [Volume fraction] 36.1 % Critically low 42.0-54.0 [facility] Comment on above: Performed By: #### C MP, LIPID #### [facility] [address] [place] [address] Dr. Kylee Bunch Hemoglobin (Bld) [Mass/Vol] 12.1 g/dL Critically low 14.0-18.0 [facility] Comment on above: Performed By: #### C MP, LIPID #### [facility] [address] [place] [address] Dr. Kylee Bunch IG # 0.01 10e3/ul Normal 0.00-0.03 [facility] Comment on above: Performed By: #### C MP, LIPID #### [facility] [address] [address] [address] Kylee Bunch IG % 0.2 % Normal 0.0-0.5 [facility] Comment on above: Performed By: #### C MP, LIPID #### [facility] [address] [place] [address] Dr. Kylee Bunch LYMPH # 1.7 103/ul Normal 1.2-3.8 [facility] Comment on above: Performed By: #### C MP, LIPID #### [facility] [address] [place] [address] Dr. Kylee Bunch Lymphocytes/100 WBC (Bld) 30.9 % Normal 20.5-60.0 [facility] Comment on above: Performed By: #### C MP, LIPID #### [facility] [address] [place] [address] Dr. Kylee Bunch MANUAL DIFF REQ NO Normal [facility] Comment on above: Performed By: #### C MP, LIPID #### [facility] [address] [place] [address] Dr. Kylee Bunch MCH (RBC) [Entitic mass] 27.4 pg Normal 25.9-34.0 [facility] Comment on above: Performed By: #### C MP, LIPID #### [facility] [address] [place] [address] Dr. Kylee Bunch MCHC (RBC) [Mass/Vol] 33.5 g/dL Normal 29.9-35.2 [facility] Comment on above: Performed By: #### C MP, LIPID #### [facility] [address] [place] [address] Dr. yKlee Bunch MCV (RBC) [Entitic vol] 81.9 fL Normal 80.0-94.0 [facility] Comment on above: Performed By: #### C MP, LIPID #### [facility] [address] [address] [address] Kylee Bunch MONO # 0.7 103/ul Normal 0.3-0.8 [facility] Comment on above: Performed By: #### C MP, LIPID #### [facility] [address] [address] [address] Kylee Bunch Monocytes/100 WBC (Bld) 12.9 % Critically high 1.7-12.0 [facility] Comment on above: Performed By: #### C MP, LIPID #### [facility] [address] [address] [address] Kylee Bunch NEUT # 2.9 103/ul Normal 1.4-6.5 [facility] Comment on above: Performed By: #### C MP, LIPID #### [facility] [address] [address] [address] Kylee Bunch Neutrophils/100 WBC (Bld) 52.7 % Normal 43.0-75.0 [facility] Comment on above: Performed By: #### C MP, LIPID #### [facility] [address] [address] [address] Kylee Bunch PLT 213 103/ul Normal 150-450 [facility] Comment on above: Performed By: #### C MP, LIPID #### [facility] [address] [address] [address] Kylee Bunch RBC 4.41 106/ul Critically low 4.70-6.10 [facility] Comment on above: Performed By: #### C MP, LIPID #### [facility] [address] [address] [address] Kylee Bunch WBC 5.4 103/ul Normal 4.0-11.0 [facility] Comment on above: Performed By: #### C MP, LIPID #### [facility] [address] [address] [address] Kylee Bunch LIPID PROFILEon 05-14-2022 CHOL-HDL RATIO NORM SEE BELOW Normal [facility] Comment on above: Result Comment: 3.3 - 4.4 LOW RISK 4.4 - 7.1 AVERAGE RISK 7.1 - 11.0 MODERATE RISK >11.0 HIGH RISK Performed By: #### C MP, LIPID #### [facility] [address] [address] [address] Kylee Bunch Cholesterol [Mass/Vol] 166 mg/dL Normal <=200 [facility] Comment on above: Performed By: #### C MP, LIPID #### [facility] [address] [address] [address] Kylee Bunch Cholesterol in HDL [Mass/Vol] 71 mg/dL Critically high 40-60 [facility] Comment on above: Performed By: #### C MP, LIPID #### [facility] [address] [address] [address] Kylee Bunch Cholesterol in LDL [Mass/Vol] 84.8 mg/dL Normal [facility] Comment on above: Performed By: #### C MP, LIPID #### [facility] [address] [address] [address] Kylee Bunch Cholesterol.total/Cho lesterol in HDL [Mass ratio] 2.3 {ratio} Normal [facility] Comment on above: Performed By: #### C MP, LIPID #### [facility] [address] [address] [address] Kylee Bunch HDL NORMAL > or = 60 mg/dl - LO W CARDIOVASCULAR RISK <40 mg/dl - HIGH CARDIOVASCULAR RISK Normal [facility] Comment on above: Performed By: #### C MP, LIPID #### [facility] [address] [address] [address] Kylee Bunch LDL CALC NORMAL SEE BELOW Normal [facility] Comment on above: Result Comment: <100 mg/dl OPTIMAL 100 - 129 mg/dl NEAR OR ABOVE OPTIMAL 130 - 159 mg/dl BORDERLINE HIGH 160 - 189 mg/dl HIGH >190 mg/dl VERY HIGH Performed By: #### C MP, LIPID #### [facility] [address] [address] [address] Kylee Bunch Triglyceride [Mass/Vol] 51 mg/dL Normal <=150 [facility] Comment on above: Performed By: #### C MP, LIPID #### [facility] [address] [place] [address] Dr. Kylee Bunch VLDL CALC 10.2 mg/dL Normal [facility] Comment on above: Performed By: #### C MP, LIPID #### [facility] [address] [place] [address] Dr. Kylee Bunch MICROALBUMIN, RAND URon 11-0 mALB 3.0 mg/L Normal <=30.0 [facility] Comment on above: Performed By: #### M ALBR #### [facility] [address] [place] [address] Dr. Kylee Bunch PROF 14(COMP METB)on 022 Albumin [Mass/Vol] 3.5 g/dL Normal 3.4-5.0 [facility] Comment on above: Performed By: #### C MP, LIPID #### [facility] [address] [place] [address] Dr. Kylee Bunch Albumin/Globulin [Mass ratio] 1.0 {ratio} Normal [facility] Comment on above: Performed By: #### C MP, LIPID #### [facility] [address] [place] [address] Dr. Kylee Bunch ALP [Catalytic activity/Vol] 97 U/L Normal 46-116 [facility] Comment on above: Performed By: #### C MP, LIPID #### [facility] [address] [place] [address] Dr. Kylee Bunch ALT [Catalytic activity/Vol] 29 U/L Normal 16-63 [facility] Comment on above: Performed By: #### C MP, LIPID #### [facility] [address] [place] [address] Dr. Kylee Bunch Anion gap [Moles/Vol] 6.7 mmol/L Normal [facility] Comment on above: Performed By: #### C MP, LIPID #### [facility] [address] [place] [address] Dr. Kylee Bunch AST [Catalytic activity/Vol] 28 U/L Normal 15-37 [facility] Comment on above: Performed By: #### C MP, LIPID #### [facility] [address] [address] [address] Kylee Bunch Bilirubin [Mass/Vol] 0.4 mg/dL Normal 0.2-1.0 [facility] Comment on above: Performed By: #### C MP, LIPID #### [facility] [address] [place] [address] Dr. Kylee Bunch Calcium [Mass/Vol] 8.9 mg/dL Normal 8.5-10.1 [facility] Comment on above: Performed By: #### C MP, LIPID #### [facility] [address] [place] [address] Dr. Kylee Bunch Chloride [Moles/Vol] 99 mmol/L Normal 98-107 [facility] Comment on above: Performed By: #### C MP, LIPID #### [facility] [address] [place] [address] Dr. Kylee Bunch CO2 [Moles/Vol] 33.4 mmol/L Critically high 21.0-32.0 [facility] Comment on above: Performed By: #### C MP, LIPID #### [facility] [address] [place] [address] Dr. Kylee Bunch Creatinine [Mass/Vol] 0.80 mg/dL Normal 0.70-1.30 [facility] Comment on above: Performed By: #### C MP, LIPID #### [facility] [address] [place] [address] Dr. Kylee Bunch EGFR-AF M[place]ICAN >60 Normal >=60 [facility] Comment on above: Performed By: #### C MP, LIPID #### [facility] [address] [place] [address] Dr. Kylee Bunch EGFR-NON AF M[place]ICAN >60 Normal >=60 [facility] Comment on above: Performed By: #### C MP, LIPID #### [facility] [address] [place] [address] Dr. Kylee Bunch Globulin (S) [Mass/Vol] 3.4 g/dL Normal [facility] Comment on above: Performed By: #### C MP, LIPID #### [facility] [address] [place] [address] Dr. Kylee uBnch Glucose [Mass/Vol] 188 mg/dL Critically high 74-106 [facility] Comment on above: Performed By: #### C MP, LIPID #### [facility] [address] [place] [address] Dr. Kylee Bunch Potassium [Moles/Vol] 4.1 mmol/L Normal 3.5-5.1 [facility] Comment on above: Performed By: #### C MP, LIPID #### [facility] [address] [place] [address] Dr. Kylee Bunch Protein [Mass/Vol] 6.9 g/dL Normal 6.4-8.2 [facility] Comment on above: Performed By: #### C MP, LIPID #### [facility] [address] [place] [address] Dr. Kylee Bunch Sodium [Moles/Vol] 135 mmol/L Critically low 136-145 [facility] Comment on above: Performed By: #### C MP, LIPID #### [facility] [address] [place] [address] Dr. Kylee Bunch Urea nitrogen [Mass/Vol] 15.0 mg/dL Normal 7.0-18.0 [facility] Comment on above: Performed By: #### C MP, LIPID #### [facility] [address] [place] [address] Dr. Kylee Bunch Urea nitrogen/Creatinine [Mass ratio] 18.8 mg/mg Normal [facility] Comment on above: Performed By: #### C MP, LIPID #### [facility] [address] [place] [address] Dr. Kylee Bunch UA RANDOM W/MICROSCOPICon BACTERIA NONE SEEN Normal NONE SEEN [facility] Comment on above: Performed By: #### C MP, LIPID #### [facility] [address] [place] [address] Dr. Kylee Bunch Bilirubin Ql (U) Negative Normal NEGATIVE [facility] Comment on above: Performed By: #### C MP, LIPID #### [facility] [address] [place] [address] Dr. Kylee Bunch CAST NONE SEEN Normal NONE SEEN [facility] Comment on above: Performed By: #### C MP, LIPID #### [facility] [address] [address] [address] Kylee Bunch Clarity (U) CLEAR Normal CLEAR [facility] Comment on above: Performed By: #### C MP, LIPID #### [facility] [address] [address] [address] Kylee Bunch Color (U) LT. YELLOW Normal YELLOW [facility] Comment on above: Performed By: #### C MP, LIPID #### [facility] [address] [address] [address] Kylee Bunch Crystals LM Nom (Urine sed) NONE SEEN Normal NONE SEEN [facility] Comment on above: Performed By: #### C MP, LIPID #### [facility] [address] [place] [address] Dr. Kylee Bunch Epithelial cells LM Ql (Urine sed) FEW Abnormal NONE SEEN /RARE [facility] Comment on above: Performed By: #### C MP, LIPID #### [facility] [address] [place] [address] Dr. Kylee Bunch Glucose Ql (U) Negative Normal NEGATIVE [facility] Comment on above: Performed By: #### C MP, LIPID #### [facility] [address] [address] [address] Kylee Bunch Hemoglobin Ql (U) TRACE-LYSED Abnormal NEGATIVE [facility] Comment on above: Performed By: #### C MP, LIPID #### [facility] [address] [address] [address] Kylee Bunch Ketones Ql (U) Negative Normal NEGATIVE [facility] Comment on above: Performed By: #### C MP, LIPID #### [facility] [address] [address] [address] Kylee Bunch LEUKOCYTES Negative Normal NEGATIVE [facility] Comment on above: Performed By: #### C MP, LIPID #### [facility] [address] [place] [address] Dr. Kylee Bunch MUCOUS NONE SEEN Normal NONE SEEN [facility] Comment on above: Performed By: #### C MP, LIPID #### [facility] [address] [address] [address] Kylee Bunch Nitrite Ql (U) Negative Normal NEGATIVE [facility] Comment on above: Performed By: #### C MP, LIPID #### [facility] [address] [address] [address] Kylee Bunch pH (U) 6.0 [pH] Normal 5-9 [facility] Comment on above: Performed By: #### C MP, LIPID #### [facility] [address] [address] [address] Kylee Bunch RBC 2-5 Abnormal 0-2 [facility] Comment on above: Performed By: #### C MP, LIPID #### [facility] [address] [place] [address] Dr. Kylee Bunch SPEC GRAVITY 1.020 Normal 1.005-<=1. 025 [facility] Comment on above: Performed By: #### C MP, LIPID #### [facility] [address] [address] [address] Kylee Bunch UA PROTEIN Negative Normal NEGATIVE/ TRACE [facility] Comment on above: Performed By: #### C MP, LIPID #### [facility] [address] [place] [address] Dr. Kylee Bunch Urobilinogen Qn (U) 0.2 {Gemini'U}/dL Normal 0.2 - 1. 0 [facility] Comment on above: Performed By: #### C MP, LIPID #### [facility] [address] [place] [address] Dr. Kylee Bunch WBC NONE SEEN Normal NONE SEEN [facility] Comment on above: Performed By: #### C MP, LIPID #### [facility] [address] [place] [address] Dr. Kylee Bunch Basic Metab w/rfx MGon 01-07 (cont.) Normal [facility] Comment on above: Result Comment: Aver age GFR for 70 or more years old: 75 mL/min/1.73sq m Chronic Kidney Disease: <60 mL/min/1.73sq m Kidney failure: <15 mL/min/1.73sq m eGFR calculated using average adult body mass. Additional eGFR calculator available at: http://www.The Original SoupMan.Sealed/multiple_crcl_2012.htm Performed By: #### C DP, MELVIN, BMPX, MG, IPF #### [facility] [address] [place] [address] Daycare Manager: Francisco J Fonseca MD Anion gap [Moles/Vol] 9 mmol/L Normal 9-17 [facility] Comment on above: Performed By: #### C DP, MELVIN, BMPX, MG, IPF #### [facility] [employer] [facility]) [address] [place] [address] Daycare Manager: Francisco J Fonseca MD Calcium [Mass/Vol] 7.8 mg/dL Low 8.6-10.4 [facility] Comment on above: Performed By: #### C DP, MELVIN, BMPX, MG, IPF #### [facility] [employer] ([place]) [address] [place] [address] Daycare Manager: Francisco J Fonseca MD Chloride [Moles/Vol] 102 mmol/L Normal 98-107 [facility] Comment on above: Performed By: #### C DP, MELVIN, BMPX, MG, IPF #### [facility] [employer] ([place]) [address] [place] [address] Daycare Manager: Francisco J Fonseca MD CO2 [Moles/Vol] 24 mmol/L Normal 20-31 [facility] Comment on above: Performed By: #### C DP, MELVIN, BMPX, MG, IPF #### [facility] [employer] ([place]) [address] [place] [address] Daycare Manager: Francisco J Fonseca MD Creatinine [Mass/Vol] 0.49 mg/dL Low 0.70-1.20 [facility] Comment on above: Performed By: #### C DP, MELVIN, BMPX, MG, IPF #### [address] [address] Daycare Manager: Francisco J Fonseca MD GFR, Amer >60 Normal >60 [facility] Comment on above: Performed By: #### C DP, MELVNI, BMPX, MG, IPF #### [address] [address] Daycare Manager: Francisco J Fonseca MD GFR,non Amer >60 Normal >60 [facility] Comment on above: Performed By: #### C DP, MELVIN, BMPX, MG, IPF #### [address] [address] Daycare Manager: Francisco J Fonseca MD Glucose [Mass/Vol] 79 mg/dL Normal 70-99 [facility] Comment on above: Performed By: #### C DP, MELVIN, BMPX, MG, IPF #### [address] [address] Daycare Manager: Francisco J Fonseca MD Potassium [Moles/Vol] 3.5 mmol/L Low 3.7-5.3 [facility] Comment on above: Performed By: #### C DP, MELVIN, BMPX, MG, IPF #### [address] [address] Daycare Manager: Francisco J Fonseca MD Sodium [Moles/Vol] 135 mmol/L Normal 135-144 [facility] Comment on above: Performed By: #### C DP, MELVIN, BMPX, MG, IPF #### [address] [address] Daycare Manager: Francisco J Fonseca MD Urea nitrogen [Mass/Vol] 7 mg/dL Low 8-23 [facility] Comment on above: Performed By: #### C DP, MELVIN, BMPX, MG, IPF #### [facility] [employer] ([place]) [address] [place] [address] Daycare Manager: Francisco J Fonseca MD CBC with Diffon 01-07-2022 Abs. Basophil 0.00 k/uL Normal 0.0-0.2 [facility] Comment on above: Performed By: #### C DP #### [address] [address] Daycare Manager: Francisco J Fonseca MD Abs.Imm.Granulocyte 0.00 k/uL Normal 0.00-0.30 [facility] Comment on above: Performed By: #### C DP #### [place] [address] Daycare Manager: Francisco J Fonseca MD Abs.Neutrophil (Seg) 8.33 k/uL High 1.8-7.7 [facility] Comment on above: Performed By: #### C DP #### [place] [address] Daycare Manager: Francisco J Fonseca MD Eosinophils (Bld) [#/Vol] 0.11 10*3/uL Normal 0.0-0.4 [facility] Comment on above: Performed By: #### C DP #### [place] [address] Daycare Manager: Francisco J Fonseca MD Lymphocytes (Bld) [#/Vol] 1.22 10*3/uL Normal 1.0-4.8 [facility] Comment on above: Performed By: #### C DP #### [address] [address] Daycare Manager: Francisco J Fonseca MD Monocytes (Bld) [#/Vol] 1.44 10*3/uL High 0.1-0.8 [facility] Comment on above: Performed By: #### C DP #### [place] [address] Daycare Manager: Francisco J Fonseca MD Neutrophil (Seg) 75 % High 36-66 [facility] Comment on above: Performed By: #### C DP #### [address] [address] Daycare Manager: Francisco J Fonseca MD NRBC Automated 0.0 per 100 WBC Normal 0.0 [facility] Comment on above: Performed By: #### C DP #### [address] [address] Daycare Manager: Francisco J Fonseca MD WBC (Bld) [#/Vol] 11.1 10*3/uL Normal 3.5-11.3 [facility] Comment on above: Performed By: #### C DP #### [address] [address] Daycare Manager: Francisco J Fonseca MD Basophils/100 WBC (Bld) 0 % Normal 0-2 [facility] Comment on above: Performed By: #### C DP #### [address] [address] Daycare Manager: Francisco J Fonseca MD Eosinophils/100 WBC (Bld) 1 % Normal 1-4 [facility] Comment on above: Performed By: #### C DP #### [address] [address] Daycare Manager: Francisco J Fonseca MD Immature granulocytes/100 WBC (Bld) 0 % Normal 0 [facility] Comment on above: Performed By: #### C DP #### [address] [address] Daycare Manager: Francisco J Fonseca MD Lymphocytes/100 WBC (Bld) 11 % Low 24-44 [facility] Comment on above: Performed By: #### C DP #### [address] [address] Daycare Manager: Francisco J Fonseca MD Monocytes/100 WBC (Bld) 13 % High 1-7 [facility] Comment on above: Performed By: #### C DP #### [address] [address] Daycare Manager: Francisco J Fonseca MD Morphology Walter (Bld) [Interp] ANISOCYTOSIS PRESENT Normal [facility] Comment on above: Result Comment: MICR OCYTOSIS PRESENT 1+ TARGET CELLS 1+ ACANTHOCYTES Performed By: #### C DP #### [address] [address] Daycare Manager: Francisco J Fonseca MD Erythrocyte distribution width (RBC) [Ratio] 17.3 % High 11.8-14.4 [facility] Comment on above: Performed By: #### C DP #### [address] [address] Daycare Manager: Francisco J Fonseca MD Hematocrit (Bld) [Volume fraction] 36.6 % Low 40.7-50.3 [facility] Comment on above: Performed By: #### C DP #### [address] [address] Daycare Manager: Francisco J Fonseca MD Hemoglobin (Bld) [Mass/Vol] 13.0 g/dL Normal 13.0-17.0 [facility] Comment on above: Performed By: #### C DP #### [address] [address] Daycare Manager: Francisco J Fonseca MD MCH (RBC) [Entitic mass] 26.5 pg Normal 25.2-33.5 [facility] Comment on above: Performed By: #### C DP #### [address] [address] Daycare Manager: Francisco J Fonseca MD MCHC (RBC) [Mass/Vol] 35.5 g/dL High 28.4-34.8 [facility] Comment on above: Performed By: #### C DP #### [address] [place] [address] Daycare Manager: Francisco J Fonseca MD MCV (RBC) [Entitic vol] 74.5 fL Low 82.6-102.9 [facility] Comment on above: Performed By: #### C DP #### [address] [address] Daycare Manager: Francisco J Fonseca MD Platelet Count See Reflexed IPF Result Normal 138-453 [facility] Comment on above: Performed By: #### C DP #### [address] [address] Daycare Manager: Francisco J Fonseca MD RBC (Bld) [#/Vol] 4.91 10*6/uL Normal 4.21-5.77 [facility] Comment on above: Performed By: #### C DP #### [address] [address] Daycare Manager: Francisco J Fonseca MD Laboratory - Chemistry and C hemistry - challenge 01-07-2022 Magnesium [Mass/Vol] 1.5 mg/dL Low 1.6 - 2 .6 mg/dL [facility] Anion gap [Moles/Vol] 9 mmol/L 9 - 17 mmol/L [facility] [employer] Calcium [Mass/Vol] 7.8 mg/dL Low 8.6 - 10. 4 mg/dL [facility] [employer] Chloride [Moles/Vol] 102 mmol/L 98 - 10 7 mmol/L [facility] [employer] CO2 [Moles/Vol] 24 mmol/L 20 - 31 mmol/L [facility] [employer] Creatinine [Mass/Vol] 0.49 mg/dL Low 0.70 - 1.20 mg/dL [employer] [facility] [employer] GFR/1.73 sq M.predicted MDRD (S/P/Bld) [Vol rate/Area] [facility] [employer] Comment on above: Average GFR for 70 o r more years old: 75 mL/min/1.73sq m Chronic Kidney Disease: <60 mL/min/1.73sq m Kidney failure: <15 mL/min/1.73sq m eGFR calculated using average adult body mass. Additional eGFR calculator available at: http://www.[employer]/multiple_crcl_2012.htm Glucose [Mass/Vol] 79 mg/dL 70 - 99 mg/dL [facility] Phosphate [Mass/Vol] 2.3 mg/dL Low 2.5 - 4 .5 mg/dL [facility] Potassium [Moles/Vol] 3.5 mmol/L Low 3.7 - 5.3 mmol/L [facility] Sodium [Moles/Vol] 135 mmol/L 135 - 144 mmol/L [facility] Urea nitrogen (BldV) [Mass/Vol] 7 mg/dL Low 8 - 23 mg/dL [facility] Laboratory - Hematology and Cell countson 01-07-2022 Basophils (Bld) [#/Vol] 0.00 10*3/uL [facility] Hematocrit (Bld) [Volume fraction] 36.6 % Low 40.7 - 50.3 % [facility] Hemoglobin (Bld) [Mass/Vol] 13.0 g/dL 13.0 - 17.0 g/dL [facility] MCH (RBC) [Entitic mass] 26.5 pg 25.2 - 33.5 pg [facility] MCHC (RBC) [Mass/Vol] 35.5 g/dL High 28.4 - 34.8 g/dL [facility] MCV (RBC) [Entitic vol] 74.5 fL Low 82.6 - 102.9 fL [facility] Morphology Walter (Bld) [Interp] MICROCYTOSIS PRESENT [facility] Morphology Walter (Bld) [Interp] 1+ TARGET CELLS [facility] Morphology Walter (Bld) [Interp] 1+ ACANTHOCYTES [facility] Platelet distribution width (Bld) [Ratio] 17.3 % High 11.8 - 14.4 % [facility] Platelets (Bld) [#/Vol] See Reflexed IPF Result [facility] RBC (Bld) [#/Vol] 4.91 10*6/uL 4.21 - 5.77 m/uL [facility] Segmented neutrophils/100 WBC (Bld) 75 % High 36 - 66 % [facility] WBC (Bld) [#/Vol] 11.1 10*3/uL [facility] Magnesiumon 01-07-2022 Magnesium [Mass/Vol] 1.5 mg/dL Low 1.6-2.6 [facility] Comment on above: Performed By: #### C DP #### [facility] [address] [place] [address] Daycare Manager: Francisco J Fonseca MD No Panel Informationon 01-07 Absolute Eos # 0.11 [facility] Absolute Immature Granulocyte 0.00 [facility] Absolute Lymph # 1.22 [facility] Absolute Gila # 1.44 High [facility] Interpretation and review of laboratory results Abnormal [facility] NRBC Automated 0.0 0.0 per 100 WBC [facility] Segs Absolute 8.33 High [facility] Platelet, Fluorescence 230 [facility] Comment on above: ORDERED BY LAB Platelet, Immature Fraction 10.1 % 1.1 - 10.3 % [facility] Comment on above: ORDERED BY LAB [facility] Interpretation and review of laboratory results Abnormal [facility] GFR >60 >60 mL/min [facility] GFR Non- >60 >60 mL/min [facility] Interpretation and review of laboratory results Abnormal [facility] PLT, Immature Fract.on 01-07 Platelet, Fluoresc. 230 k/uL Normal 138-453 [facility] Comment on above: Result Comment: ORDE RED BY LAB Performed By: #### C DP #### [facility] [address] [place] [address] Daycare Manager: Francisco J Fonseca MD PLT, Immature Fract. 10.1 % Normal 1.1-10.3 [facility] Comment on above: Result Comment: ORDE RED BY LAB Performed By: #### C DP #### [facility] [employer] ([place]) [address] [place] [address] Daycare Manager: Francisco J Fonseca MD Phosphorus, Inorg.on 022 Phosphorus, Inorg. 2.3 mg/dL Low 2.5-4.5 [facility] Comment on above: Performed By: #### C DP, MELVIN, BMPX, MG, IPF #### [facility] [employer] ([place]) [address] [place] [address] Daycare Manager: Francisco J Fonseca MD Basic Metab w/rfx MGon 01-06 (cont.) Normal [facility] Comment on above: Result Comment: Aver age GFR for 70 or more years old: 75 mL/min/1.73sq m Chronic Kidney Disease: <60 mL/min/1.73sq m Kidney failure: <15 mL/min/1.73sq m eGFR calculated using average adult body mass. Additional eGFR calculator available at: http://www.[employer] Elements/multiple_crcl_2012.htm Performed By: #### C DP, MELVIN, BMPX, IPF #### [facility] [employer] ([place]) [address] [place] [address] Daycare Manager: Francisco J Fonseca MD Anion gap [Moles/Vol] 11 mmol/L Normal 9-17 [facility] Comment on above: Performed By: #### C DP, MELVIN, BMPX, IPF #### [facility] [employer] ([place]) [address] [place] [address] Daycare Manager: Francisco J Fonseca MD Calcium [Mass/Vol] 7.7 mg/dL Low 8.6-10.4 [facility] Comment on above: Performed By: #### C DP, MELVIN, BMPX, IPF #### [facility] [address] [place] [address] Daycare Manager: Francisco J Fonseca MD Chloride [Moles/Vol] 99 mmol/L Normal 98-107 [facility] Comment on above: Performed By: #### C DP, MELVIN, BMPX, IPF #### [facility] [address] [place] [address] Daycare Manager: Francisco J Fonseca MD CO2 [Moles/Vol] 23 mmol/L Normal 20-31 [facility] Comment on above: Performed By: #### C DP, MELVIN, BMPX, IPF #### [facility] [address] [place] [address] Daycare Manager: Francisco J Fonseca MD Creatinine [Mass/Vol] 0.50 mg/dL Low 0.70-1.20 [facility] Comment on above: Performed By: #### C DP, MELVIN, BMPX, IPF #### [facility] [employer] ([place]) [address] [place] [address] Daycare Manager: Francisco J Fonseca MD GFR, Amer >60 Normal >60 [facility] Comment on above: Performed By: #### C DP, MELVIN, BMPX, IPF #### [facility] [employer] ([place]) [address] [place] [address] Daycare Manager: Francisco J Fonseca MD GFR,non Amer >60 Normal >60 [facility] Comment on above: Performed By: #### C DP, MELVIN, BMPX, IPF #### [facility] ([place]) [address] [place] [address] Daycare Manager: Francisco J Fonseca MD Glucose [Mass/Vol] 149 mg/dL High 70-99 [facility] Comment on above: Performed By: #### C DP, MELVIN, BMPX, IPF #### [facility] [employer] ([place]) [address] [place] [address] Daycare Manager: Francisco J Fonseca MD Potassium [Moles/Vol] 3.6 mmol/L Low 3.7-5.3 [facility] Comment on above: Performed By: #### C DP, MELVIN, BMPX, IPF #### [address] [address] Daycare Manager: Francisco J Fonseca MD Sodium [Moles/Vol] 133 mmol/L Low 135-144 [facility] Comment on above: Performed By: #### C DP, MELVIN, BMPX, IPF #### [place] [address] Daycare Manager: Francisco J Fonseca MD Urea nitrogen [Mass/Vol] 11 mg/dL Normal 8-23 [facility] Comment on above: Performed By: #### C DP, MELVIN, BMPX, IPF #### [place] [address] Daycare Manager: Francisco J Fonseca MD CBC with Diffon 01-06-2022 Abs. Basophil 0.03 k/uL Normal 0.00-0.20 [facility] Comment on above: Performed By: #### C DP, MELVIN, BMPX, IPF #### [place] [address] Daycare Manager: Francisco J Fonseca MD Abs.Imm.Granulocyte 0.05 k/uL Normal 0.00-0.30 [facility] Comment on above: Performed By: #### C DP, MELVIN, BMPX, IPF #### [place] [address] Daycare Manager: Francisco J Fonseca MD Abs.Neutrophil (Seg) 11.21 k/uL High 1.50-8.10 [facility] Comment on above: Performed By: #### C DP, MELVIN, BMPX, IPF #### [facility] [employer] ([place]) [address] [place] [address] Daycare Manager: Francisco J Fonseca MD Basophils/100 WBC (Bld) 0 % Normal 0-2 [facility] Comment on above: Performed By: #### C DP, MELVIN, BMPX, IPF #### [address] [address] Daycare Manager: Francisco J Fonseca MD Eosinophils (Bld) [#/Vol] 0.09 10*3/uL Normal 0.00-0.44 [facility] Comment on above: Performed By: #### C DP, MELVIN, BMPX, IPF #### [address] [address] Daycare Manager: Francisco J Fonseca MD Eosinophils/100 WBC (Bld) 1 % Normal 1-4 [facility] Comment on above: Performed By: #### C DP, MELVIN, BMPX, IPF #### [address] [address] Daycare Manager: Francisco J Fonseca MD Erythrocyte distribution width (RBC) [Ratio] 18.4 % High 11.8-14.4 [facility] Comment on above: Performed By: #### C DP, MELVIN, BMPX, IPF #### [facility] ([place]) [address] [place] [address] Daycare Manager: Francisco J Fonseca MD Hematocrit (Bld) [Volume fraction] 38.2 % Low 40.7-50.3 [facility] Comment on above: Performed By: #### C DP, MELVIN, BMPX, IPF #### [facility] ([place]) [address] [place] [address] Daycare Manager: Francisco J Fonseca MD Hemoglobin (Bld) [Mass/Vol] 13.2 g/dL Normal 13.0-17.0 [facility] Comment on above: Performed By: #### C DP, MELVIN, BMPX, IPF #### [facility] ([place]) [address] [place] [address] Daycare Manager: Francisco J Fonseca MD Immature granulocytes/100 WBC (Bld) 0 % Normal 0 [facility] Comment on above: Performed By: #### C DP, MELVIN, BMPX, IPF #### [address] [address] Daycare Manager: Francisco J Fonseca MD Lymphocytes (Bld) [#/Vol] 0.82 10*3/uL Low 1.10-3.70 [facility] Comment on above: Performed By: #### C DP, MELVIN, BMPX, IPF #### [address] [address] Daycare Manager: Francisco J Fonseca MD Lymphocytes/100 WBC (Bld) 6 % Low 24-43 [facility] Comment on above: Performed By: #### C DP, MELVIN, BMPX, IPF #### [place] [address] Daycare Manager: Francisco J Fonseca MD MCH (RBC) [Entitic mass] 26.7 pg Normal 25.2-33.5 [facility] Comment on above: Performed By: #### C DP, MELVIN, BMPX, IPF #### [address] [address] Daycare Manager: Francisco J Fonseca MD MCHC (RBC) [Mass/Vol] 34.6 g/dL Normal 28.4-34.8 [facility] Comment on above: Performed By: #### C DP, MELVIN, BMPX, IPF #### [facility] ([place]) [address] [place] [address] Daycare Manager: Francisco J Fonseca MD MCV (RBC) [Entitic vol] 77.2 fL Low 82.6-102.9 [facility] Comment on above: Performed By: #### C DP, MELVIN, BMPX, IPF #### [facility] ([place]) [address] [place] [address] Daycare Manager: Francisco J Fonseca MD Monocytes (Bld) [#/Vol] 1.14 10*3/uL Normal 0.10-1.20 [facility] Comment on above: Performed By: #### C DP, MELVIN, BMPX, IPF #### [address] [address] Daycare Manager: Francisco J Fonseca MD Monocytes/100 WBC (Bld) 9 % Normal 3-12 [facility] Comment on above: Performed By: #### C DP, MELVIN, BMPX, IPF #### [address] [address] Daycare Manager: Francisco J Fonseca MD Neutrophil (Seg) 84 % High 36-65 [facility] Comment on above: Performed By: #### C DP, MELVIN, BMPX, IPF #### [address] [address] Daycare Manager: Francisco J Fonseca MD NRBC Automated 0.0 per 100 WBC Normal 0.0 [facility] Comment on above: Performed By: #### C DP, MELVIN, BMPX, IPF #### [address] [address] Daycare Manager: Francisco J Fonseca MD Platelet Count See Reflexed IPF Result Normal 138-453 [facility] Comment on above: Performed By: #### C DP, MELVIN, BMPX, IPF #### [facility] [employer] [facility]) [address] [place] [address] Daycare Manager: Francisco J Fonseca MD RBC (Bld) [#/Vol] 4.95 10*6/uL Normal 4.21-5.77 [facility] Comment on above: Performed By: #### C DP, MELVIN, BMPX, IPF #### [facility]) [address] [place] [address] Daycare Manager: Francisco J Fonseca MD RBC morphology finding Nom (Bld) ANISOCYTOSIS PRESENT Normal [facility] Comment on above: Result Comment: MICR OCYTOSIS PRESENT Performed By: #### C DP, MELVIN, BMPX, IPF #### [facility] [address] [place], [place] [id number] Daycare Manager: Francisco J Fonseca MD WBC (Bld) [#/Vol] 13.3 10*3/uL High 3.5-11.3 [facility] Comment on above: Performed By: #### C DP, MELVIN, BMPX, IPF #### [facility] [address] [place], [place] [id number] Daycare Manager: Francisco J Fonseca MD Laboratory - Chemistry and C hemistry - challengeon 01-06-2022 Anion gap [Moles/Vol] 11 mmol/L 9 - 17 mmol/L [employer] Calcium [Mass/Vol] 7.7 mg/dL Low 8.6 - 10. 4 mg/dL [employer] Chloride [Moles/Vol] 99 mmol/L 98 - 10 7 mmol/L [employer] CO2 [Moles/Vol] 23 mmol/L 20 - 31 mmol/L [employer] Creatinine [Mass/Vol] 0.5 mg/dL Low 0.70 - 1.20 mg/dL [employer] GFR/1.73 sq M.predicted MDRD (S/P/Bld) [Vol rate/Area] [facility] [employer] Comment on above: Average GFR for 70 o r more years old: 75 mL/min/1.73sq m Chronic Kidney Disease: <60 mL/min/1.73sq m Kidney failure: <15 mL/min/1.73sq m eGFR calculated using average adult body mass. Additional eGFR calculator available at: http://www.The Original SoupMan.com/multiple_crcl_2012.htm Glucose [Mass/Vol] 149 mg/dL High 70 - 99 mg/dL [employer] Phosphate [Mass/Vol] 2.5 mg/dL 2.5 - 4 .5 mg/dL [employer] Potassium [Moles/Vol] 3.6 mmol/L Low 3.7 - 5.3 mmol/L [facility] Sodium [Moles/Vol] 133 mmol/L Low 135 - 144 mmol/L [facility] Urea nitrogen (BldV) [Mass/Vol] 11 mg/dL 8 - 23 mg/dL [facility] Laboratory - Hematology and Cell countson 01-06-2022 Basophils (Bld) [#/Vol] 0.03 10*3/uL [facility] Basophils/100 WBC (Bld) 0 % 0 - 2 % [facility] Eosinophils/100 WBC (Bld) 1 % 1 - 4 % [facility] Hematocrit (Bld) [Volume fraction] 38.2 % Low 40.7 - 50.3 % [facility] Hemoglobin (Bld) [Mass/Vol] 13.2 g/dL 13.0 - 17.0 g/dL [facility] Immature granulocytes/100 WBC (Bld) 0 % 0 [facility] Lymphocytes/100 WBC (Bld) 6 % Low 24 - 43 % [facility] MCH (RBC) [Entitic mass] 26.7 pg 25.2 - 33.5 pg [facility] MCHC (RBC) [Mass/Vol] 34.6 g/dL 28.4 - 34.8 g/dL [facility] MCV (RBC) [Entitic vol] 77.2 fL Low 82.6 - 102.9 fL [facility] Monocytes/100 WBC (Bld) 9 % 3 - 12 % [facility] Platelet distribution width (Bld) [Ratio] 18.4 % High 11.8 - 14.4 % [facility] Platelets (Bld) [#/Vol] See Reflexed IPF Result [facility] RBC (Bld) [#/Vol] 4.95 10*6/uL 4.21 - 5.77 m/uL [facility] RBC (Bld) [#/Vol] ANISOCYTOSIS PRESENT [facility] Comment on above: MICROCYTOSIS PRESENT Segmented neutrophils/100 WBC (Bld) 84 % High 36 - 65 % [facility] WBC (Bld) [#/Vol] 13.3 10*3/uL High [facility] No Panel Informationon 01-06 Platelet, Fluorescence 252 [facility] Platelet, Immature Fraction 10.1 % 1.1 - 10.3 % [facility] Absolute Eos # 0.09 [facility] Absolute Immature Granulocyte 0.05 [facility] Absolute Lymph # 0.82 Low [facility] Absolute Gila # 1.14 [facility] Interpretation and review of laboratory results Abnormal [facility] NRBC Automated 0.0 0.0 per 100 WBC [facility] Segs Absolute 11.21 High [facility] GFR >60 >60 mL/min [facility] GFR Non- >60 >60 mL/min [facility] Interpretation and review of laboratory results Abnormal [facility] PLT, Immature Fract.on 01-06 Platelet, Fluoresc. 252 k/uL Normal 138-453 [facility] Comment on above: Performed By: #### C DP, MELVIN, BMPX, IPF #### [employer] [address] [place] [address] [phone] Daycare Manager: Francisco J Fonseca MD PLT, Immature Fract. 10.1 % Normal 1.1-10.3 [facility] Comment on above: Performed By: #### C DP, MELVIN, BMPX, IPF #### [facility] [address] [place] [address] [phone] Daycare Manager: Francisco J Fonseca MD Phosphorus, Inorg.on 022 Phosphorus, Inorg. 2.5 mg/dL Normal 2.5-4.5 [facility] Comment on above: Performed By: #### C DP, MELVIN, BMPX, IPF #### [employer] [address] [place] [phone] Daycare Manager: Francisco J Fonseca MD Basic Metab w/rfx MGon 01-05 Potassium [Moles/Vol] 3.4 mmol/L Low 3.7-5.3 [facility] Comment on above: Performed By: #### C DP, MELVIN, BMPX, IPF #### [facility] [address] [place] [address] Daycare Manager: Francisco J Fonseca MD Urea nitrogen [Mass/Vol] 14 mg/dL Normal 8-23 [facility] Comment on above: Performed By: #### C DP, MELVIN, BMPX, IPF #### [facility] [address] [place] [address] Daycare Manager: Francisco J Fonseca MD Anion gap [Moles/Vol] 12 mmol/L Normal 9-17 [facility] Comment on above: Performed By: #### C DP, MELVIN, BMPX, IPF #### [facility] [address] [place] [address] Daycare Manager: Francisco J Fonseca MD Calcium [Mass/Vol] 8.1 mg/dL Low 8.6-10.4 [facility] Comment on above: Performed By: #### C DP, MELVIN, BMPX, IPF #### [facility] [address] [place] [address] Daycare Manager: Francisco J Fonseca MD Chloride [Moles/Vol] 98 mmol/L Normal 98-107 [facility] Comment on above: Performed By: #### C DP, MELVIN, BMPX, IPF #### [facility] [address] [place] [address] Daycare Manager: Francisco J Fonseca MD CO2 [Moles/Vol] 24 mmol/L Normal 20-31 [facility] Comment on above: Performed By: #### C DP, MELVIN, BMPX, IPF #### [facility] [address] [place] [address] Daycare Manager: Francisco J Fonseca MD Creatinine [Mass/Vol] 0.54 mg/dL Low 0.70-1.20 [facility] Comment on above: Performed By: #### C DP, MELVIN, BMPX, IPF #### [facility] [employer] [facility] [place] [address] Daycare Manager: Francisco J Fonseca MD Glucose [Mass/Vol] 122 mg/dL High 70-99 [facility] Comment on above: Performed By: #### C DP, MELVIN, BMPX, IPF #### [facility] [employer] [address] [place] [address] Daycare Manager: Francisco J Fonseca MD Sodium [Moles/Vol] 134 mmol/L Low 135-144 [facility] Comment on above: Performed By: #### C DP, MELVIN, BMPX, IPF #### [facility] [employer] [address] [place] [address] Daycare Manager: Francisco J Fonseca MD (cont.) [facility] Comment on above: Result Comment: Aver age GFR for 70 or more years old: 75 mL/min/1.73sq m Chronic Kidney Disease: <60 mL/min/1.73sq m Kidney failure: <15 mL/min/1.73sq m eGFR calculated using average adult body mass. Additional eGFR calculator available at: http://www.Health Elements/multiple_crcl_2012.htm Performed By: #### C DP, MELVIN, BMPX, IPF #### [facility] [employer] [address] [place] [phone] Daycare Manager: Francisco J Fonseca MD Anion gap [Moles/Vol] 11 mmol/L Normal 9-17 [facility] Comment on above: Performed By: #### C DP, MELVIN, BMPX, IPF #### [address] [address] Daycare Manager: Francisco J Fonseca MD Calcium [Mass/Vol] 9.1 mg/dL Normal 8.6-10.4 [facility] Comment on above: Performed By: #### C DP, MELVIN, BMPX, IPF #### [facility] [address] [place] [address] Daycare Manager: Francisco J Fonseca MD Chloride [Moles/Vol] 99 mmol/L Normal 98-107 [facility] Comment on above: Performed By: #### C DP, MELVIN, BMPX, IPF #### [facility] [address] [place] [address] Daycare Manager: Francisco J Fonseca MD CO2 [Moles/Vol] 25 mmol/L Normal 20-31 [facility] Comment on above: Performed By: #### C DP, MELVIN, BMPX, IPF #### [address] [address] Daycare Manager: Francisco J Fonseca MD Creatinine [Mass/Vol] 0.57 mg/dL Low 0.70-1.20 [facility] Comment on above: Performed By: #### C DP, MELVIN, BMPX, IPF #### [address] [address] Daycare Manager: Francisco J Fonseca MD GFR, Amer >60 Normal >60 [facility] Comment on above: Performed By: #### C DP, MELVIN, BMPX, IPF #### [address] [address] Daycare Manager: Francisco J Fonseca MD GFR,non Amer >60 Normal >60 [facility] Comment on above: Performed By: #### C DP, MELVIN, BMPX, IPF #### [facility] [employer] [address] [place] [address] Daycare Manager: Francisco J Fonseca MD Glucose [Mass/Vol] 129 mg/dL High 70-99 [facility] Comment on above: Performed By: #### C DP, MELVIN, BMPX, IPF #### [facility] [employer] [address] [place] [phone] Daycare Manager: Francisco J oFnseca MD Potassium [Moles/Vol] 3.5 mmol/L Low 3.7-5.3 [facility] Comment on above: Performed By: #### C DP, MELVIN, BMPX, IPF #### [address] [address] Daycare Manager: Francisco J Fonseca MD Sodium [Moles/Vol] 135 mmol/L Normal 135-144 [facility] Comment on above: Performed By: #### C DP, MELVIN, BMPX, IPF #### [address] [address] Daycare Manager: Francisco J Fonseca MD Urea nitrogen [Mass/Vol] 15 mg/dL Normal 8-23 [facility] Comment on above: Performed By: #### C DP, MELVIN, BMPX, IPF #### [address] [address] Daycare Manager: Francisco J Fonseca MD (cont.) [facility] Comment on above: Result Comment: Aver age GFR for 70 or more years old: 75 mL/min/1.73sq m Chronic Kidney Disease: <60 mL/min/1.73sq m Kidney failure: <15 mL/min/1.73sq m eGFR calculated using average adult body mass. Additional eGFR calculator available at: http://www.The Original SoupMan.Sealed/multiple_crcl_2012.htm Performed By: #### C DP, MELVIN, BMPX, IPF #### [address] [address] Daycare Manager: Francisco J Fonseca MD Anion gap [Moles/Vol] 15 mmol/L Normal 9-17 [facility] Comment on above: Performed By: #### C DP, MELVIN, BMPX, IPF #### [address] [address] Daycare Manager: Francisco J Fonseca MD Calcium [Mass/Vol] 8.2 mg/dL Low 8.6-10.4 [facility] Comment on above: Performed By: #### C DP, MELVIN, BMPX, IPF #### [facility] [address] [place] [address] Daycare Manager: Francisco J Fonseca MD Chloride [Moles/Vol] 98 mmol/L Normal 98-107 [facility] Comment on above: Performed By: #### C DP, MELVIN, BMPX, IPF #### [facility] [address] [place] [address] Daycare Manager: Francisco J Fonseca MD CO2 [Moles/Vol] 23 mmol/L Normal 20-31 [facility] Comment on above: Performed By: #### C DP, MELVIN, BMPX, IPF #### [facility] [address] [place] [address] Daycare Manager: Francisco J Fonseca MD Creatinine [Mass/Vol] 0.66 mg/dL Low 0.70-1.20 [facility] Comment on above: Performed By: #### C DP, MELVIN, BMPX, IPF #### [facility] [address] [place] [address] Daycare Manager: Francisco J Fonseca MD GFR, Amer >60 Normal >60 [facility] Comment on above: Performed By: #### C DP, MELVIN, BMPX, IPF #### [facility] [employer] [facility] [address] [place] [address] Daycare Manager: Francisco J Fonseca MD GFR,non Amer >60 Normal >60 [facility] Comment on above: Performed By: #### C DP, MELVIN, BMPX, IPF #### [facility] [address] [place] [address] Daycare Manager: Francisco J Fonseca MD Glucose [Mass/Vol] 90 mg/dL Normal 70-99 [facility] Comment on above: Performed By: #### C DP, MELVIN, BMPX, IPF #### [facility] [address] [place] [address] Daycare Manager: Francisco J Fonseca MD Potassium [Moles/Vol] 3.7 mmol/L Normal 3.7-5.3 [facility] Comment on above: Performed By: #### C DP, MELVIN, BMPX, IPF #### [facility] [employer] [address] [place] [address] Daycare Manager: Francisco J Fonseca MD Sodium [Moles/Vol] 136 mmol/L Normal 135-144 [facility] Comment on above: Performed By: #### C DP, MELVIN, BMPX, IPF #### [address] [address] Daycare Manager: Francisco J Fonseca MD Urea nitrogen [Mass/Vol] 20 mg/dL Normal 8-23 [facility] Comment on above: Performed By: #### C DP, MELVIN, BMPX, IPF #### [place] [address] Daycare Manager: Francisco J Fonseca MD CBC with Diffon 01-05-2022 Abs. Basophil 0.04 k/uL Normal 0.00-0.20 [facility] Comment on above: Performed By: #### C DP, MELVIN, BMPX, IPF #### [facility] [employer] [facility] [address] [place] [address] Daycare Manager: Francisco J Fonseca MD Abs.Imm.Granulocyte 0.08 k/uL Normal 0.00-0.30 [facility] Comment on above: Performed By: #### C DP, MELVIN, BMPX, IPF #### [facility] [employer] [facility] [address] [place] [address] Daycare Manager: Francisco J Fonseca MD Abs.Neutrophil (Seg) 14.26 k/uL High 1.50-8.10 [facility] Comment on above: Performed By: #### C DP, MELVIN, BMPX, IPF #### [facility] [employer] [facility] [address] [place] [address] Daycare Manager: Francisco J Fonseca MD Basophils/100 WBC (Bld) 0 % Normal 0-2 [facility] Comment on above: Performed By: #### C DP, MELVIN, BMPX, IPF #### [address] [address] Daycare Manager: Francisco J Fonseca MD Eosinophils (Bld) [#/Vol] 0.11 10*3/uL Normal 0.00-0.44 [facility] Comment on above: Performed By: #### C DP, MELVIN, BMPX, IPF #### [place] [address] Daycare Manager: Francisco J Fonseca MD Eosinophils/100 WBC (Bld) 1 % Normal 1-4 [facility] Comment on above: Performed By: #### C DP, MELVIN, BMPX, IPF #### [place] [address] Daycare Manager: Francisco J Fonseca MD Immature granulocytes/100 WBC (Bld) 1 % High 0 [facility] Comment on above: Performed By: #### C DP, MELVIN, BMPX, IPF #### [facility] [employer] [facility] [address] [place] [address] Daycare Manager: Francisco J Fonseca MD Lymphocytes (Bld) [#/Vol] 0.96 10*3/uL Low 1.10-3.70 [facility] Comment on above: Performed By: #### C DP, MELVIN, BMPX, IPF #### [facility] [employer] [facility] [address] [place] [address] Daycare Manager: Francisco J Fonseca MD Lymphocytes/100 WBC (Bld) 6 % Low 24-43 [facility] Comment on above: Performed By: #### C DP, MELVIN, BMPX, IPF #### [facility] [employer] [facility] [address] [place] [address] Daycare Manager: Francisco J Fonseca MD Monocytes (Bld) [#/Vol] 0.97 10*3/uL Normal 0.10-1.20 [facility] Comment on above: Performed By: #### C DP, MELVIN, BMPX, IPF #### [address] [address] Daycare Manager: Francisco J Fonseca MD Monocytes/100 WBC (Bld) 6 % Normal 3-12 [facility] Comment on above: Performed By: #### C DP, MELVIN, BMPX, IPF #### [address] [address] Daycare Manager: Francisco J Fonseca MD Neutrophil (Seg) 87 % High 36-65 [facility] Comment on above: Performed By: #### C DP, MELVIN, BMPX, IPF #### [address] [address] Daycare Manager: Francisco J Fonseca MD Erythrocyte distribution width (RBC) [Ratio] 18.6 % High 11.8-14.4 [facility] Comment on above: Performed By: #### C DP, MELVIN, BMPX, IPF #### [address] [address] Daycare Manager: Francisco J Fonseca MD Hematocrit (Bld) [Volume fraction] 38.9 % Low 40.7-50.3 [facility] Comment on above: Performed By: #### C DP, MELVIN, BMPX, IPF #### [facility] [employer] [facility] [address] [place] [address] Daycare Manager: Francisco J Fonseca MD Hemoglobin (Bld) [Mass/Vol] 13.5 g/dL Normal 13.0-17.0 [facility] Comment on above: Performed By: #### C DP, MELVIN, BMPX, IPF #### [facility] [employer] [facility] [address] [place] [address] Daycare Manager: Francisco J Fonseca MD MCH (RBC) [Entitic mass] 26.8 pg Normal 25.2-33.5 [facility] Comment on above: Performed By: #### C DP, MELVIN, BMPX, IPF #### [address] [address] Daycare Manager: Francisco J Fonseca MD MCHC (RBC) [Mass/Vol] 34.7 g/dL Normal 28.4-34.8 [facility] Comment on above: Performed By: #### C DP, MELVIN, BMPX, IPF #### [address] [address] Daycare Manager: Francisco J Fonseca MD MCV (RBC) [Entitic vol] 77.3 fL Low 82.6-102.9 [facility] Comment on above: Performed By: #### C DP, MELVIN, BMPX, IPF #### [address] [address] Daycare Manager: Francisco J Fonseca MD NRBC Automated 0.0 per 100 WBC Normal 0.0 [facility] Comment on above: Performed By: #### C DP, MELVIN, BMPX, IPF #### [address] [address] Daycare Manager: Francisco J Fonseca MD Platelet Count See Reflexed IPF Result Normal 138-453 [facility] Comment on above: Performed By: #### C DP, MELVIN, BMPX, IPF #### [address] [address] Daycare Manager: Francisco J Fonseca MD RBC (Bld) [#/Vol] 5.03 10*6/uL Normal 4.21-5.77 [facility] Comment on above: Performed By: #### C DP, MELVIN, BMPX, IPF #### [address] [address] Daycare Manager: Francisco J Fonseca MD RBC morphology finding Nom (Bld) ANISOCYTOSIS PRESENT Normal [facility] Comment on above: Result Comment: MICR OCYTOSIS PRESENT Performed By: #### C DP, MELVIN, BMPX, IPF #### [facility] [address] [place], [place] [phone] Daycare Manager: Francisco J Fonseca MD WBC (Bld) [#/Vol] 16.4 10*3/uL High 3.5-11.3 [facility] Comment on above: Performed By: #### C DP, MELVIN, BMPX, IPF #### [facility] [address] [place], [place] 1860708 Daycare Manager: Francisco J Fonseca MD FL UGIon 01-05-2022 FL UGI EXAMINATION: SINGLE CONTRAST UPPER GI SERIES 01/05/2022 HISTORY: ORDERING SYSTEM PROVIDED HISTORY: repair perf ulcer TECHNOLOGIST PROVIDED HISTORY: repair perf ulcer COMPARISON: None. TECHNIQUE: Multiple single contrast images of the esophagus, gastroesophageal junction and stomach were obtained following the oral administration of water soluble contrast. FLUOROSCOPY DOSE AND TYPE OR TIME AND EXPOSURES: DAP [id number] FINDINGS: Contrast was administered through the indwelling [...] Howard Aldridge MD 01/05/22 Final result Normal [facility] Laboratory - Chemistry and C hemistry - challengeon 01-05-2022 Magnesium [Mass/Vol] 1.4 mg/dL Low 1.6 - 2 .6 mg/dL [facility] [employer] GFR/1.73 sq M.predicted MDRD (S/P/Bld) [Vol rate/Area] [facility] Comment on above: Average GFR for 70 o r more years old: 75 mL/min/1.73sq m Chronic Kidney Disease: <60 mL/min/1.73sq m Kidney failure: <15 mL/min/1.73sq m eGFR calculated using average adult body mass. Additional eGFR calculator available at: http://www.Health Elements/multiple_crcl_2012.htm Potassium [Moles/Vol] 3.4 mmol/L Low 3.7 - 5.3 mmol/L [facility] Urea nitrogen (BldV) [Mass/Vol] 14 mg/dL 8 - 23 mg/dL [facility] Phosphate [Mass/Vol] 2.4 mg/dL Low 2.5 - 4 .5 mg/dL [facility] Magnesium [Mass/Vol] 1.5 mg/dL Low 1.6 - 2 .6 mg/dL [facility] Anion gap [Moles/Vol] 11 mmol/L 9 - 17 mmol/L [facility] Calcium [Mass/Vol] 9.1 mg/dL 8.6 - 10. 4 mg/dL [facility] Chloride [Moles/Vol] 99 mmol/L 98 - 10 7 mmol/L [facility] CO2 [Moles/Vol] 25 mmol/L 20 - 31 mmol/L [facility] Creatinine [Mass/Vol] 0.57 mg/dL Low 0.70 - 1.20 mg/dL [facility] GFR/1.73 sq M.predicted MDRD (S/P/Bld) [Vol rate/Area] [facility] Comment on above: Average GFR for 70 o r more years old: 75 mL/min/1.73sq m Chronic Kidney Disease: <60 mL/min/1.73sq m Kidney failure: <15 mL/min/1.73sq m eGFR calculated using average adult body mass. Additional eGFR calculator available at: http://www.Health Elements/multiple_crcl_2012.htm Glucose [Mass/Vol] 129 mg/dL High 70 - 99 mg/dL [facility] Phosphate [Mass/Vol] 2.4 mg/dL Low 2.5 - 4 .5 mg/dL [facility] Potassium [Moles/Vol] 3.5 mmol/L Low 3.7 - 5.3 mmol/L [facility] Sodium [Moles/Vol] 135 mmol/L 135 - 144 mmol/L [facility] Urea nitrogen (BldV) [Mass/Vol] 15 mg/dL 8 - 23 mg/dL [facility] Laboratory - Hematology and Cell countson 01-05-2022 Basophils (Bld) [#/Vol] 0.04 10*3/uL [facility] Basophils/100 WBC (Bld) 0 % 0 - 2 % [facility] Eosinophils/100 WBC (Bld) 1 % 1 - 4 % [facility] Hematocrit (Bld) [Volume fraction] 38.9 % Low 40.7 - 50.3 % [facility] Hemoglobin (Bld) [Mass/Vol] 13.5 g/dL 13.0 - 17.0 g/dL [facility] Immature granulocytes/100 WBC (Bld) 1 % High 0 [facility] Lymphocytes/100 WBC (Bld) 6 % Low 24 - 43 % [facility] MCH (RBC) [Entitic mass] 26.8 pg 25.2 - 33.5 pg [facility] MCHC (RBC) [Mass/Vol] 34.7 g/dL 28.4 - 34.8 g/dL [facility] MCV (RBC) [Entitic vol] 77.3 fL Low 82.6 - 102.9 fL [facility] Monocytes/100 WBC (Bld) 6 % 3 - 12 % [facility] Platelet distribution width (Bld) [Ratio] 18.6 % High 11.8 - 14.4 % [facility] Platelets (Bld) [#/Vol] See Reflexed IPF Result [facility] RBC (Bld) [#/Vol] 5.03 10*6/uL 4.21 - 5.77 m/uL [facility] RBC (Bld) [#/Vol] ANISOCYTOSIS PRESENT [facility] Comment on above: MICROCYTOSIS PRESENT Segmented neutrophils/100 WBC (Bld) 87 % High 36 - 65 % [facility] WBC (Bld) [#/Vol] 16.4 10*3/uL High [facility] Magnesiumon 01-05-2022 Magnesium [Mass/Vol] 1.4 mg/dL Low 1.6-2.6 [facility] Comment on above: Performed By: #### C DP, MELVIN, BMPX, IPF #### [facility] [address] [place], [place] [id number] Daycare Manager: Francisco J Fonseca MD Magnesium [Mass/Vol] 1.5 mg/dL Low 1.6-2.6 [facility] Comment on above: Performed By: #### C DP, MELVIN, BMPX, IPF #### [facility] [address] [place], [place] [id number] Daycare Manager: Francisco J Fonseca MD No Panel Informationon 01-05 1. No evidence for contrast leakage from the stomach or duodenum following repair of perforated ulcer. 2. Gastroesophageal reflux. [facility] EXAMINATION: SINGLE CONTRAST UPPER GI SERIES 01/05/2022 HISTORY: ORDERING SYSTEM PROVIDED HISTORY: repair perf ulcer TECHNOLOGIST PROVIDED HISTORY: repair perf ulcer COMPARISON: None. TECHNIQUE: Multiple single contrast images of the esophagus, gastroesophageal junction and stomach were obtained following the oral administration of water soluble contrast. FLUOROSCOPY DOSE AND TYPE OR TIME AND EXPOSURES: DAP [id number] FINDINGS: Contrast was administered through the indwelling NG tube. No extravasation of contrast from the stomach. There is normal filling of stomach and proximal small bowel loops. There was some reflux into the biliary tree. Gastroesophageal reflux is noted. [facility] Howard Aldridge MD - 01/05/2022 EXAMINATION: SINGLE CONTRAST UPPER GI SERIES 01/05/2022 HISTORY: ORDERING SYSTEM PROVIDED HISTORY: repair perf ulcer TECHNOLOGIST PROVIDED HISTORY: repair perf ulcer COMPARISON: None. TECHNIQUE: Multiple single contrast images of the esophagus, gastroesophageal junction and stomach were obtained following the oral administration of water soluble contrast. FLUOROSCOPY DOSE AND TYPE OR TIME AND EXPOSURES: DAP [id number] FINDINGS: Contrast was administered through the indwelling NG tube. No extravasation of contrast from the stomach. There is normal filling of stomach and proximal small bowel loops. There was some reflux into the biliary tree. Gastroesophageal reflux is noted. IMPRESSION: 1. No evidence for contrast leakage from the stomach or duodenum following repair of perforated ulcer. 2. Gastroesophageal reflux. [facility] [employer] [facility] Work Phone: Radiology Study observation (narrative) [facility] Work Phone: Interpretation and review of laboratory results Abnormal [facility] GFR >60 >60 mL/min [facility] GFR Non- >60 >60 mL/min [facility] Interpretation and review of laboratory results Abnormal [facility] Interpretation and review of laboratory results Abnormal [facility] Interpretation and review of laboratory results Abnormal [facility] Platelet, Fluorescence 250 [facility] Platelet, Immature Fraction 10.5 % High 1.1 - 10.3 % [facility] Absolute Eos # 0.11 [facility] Absolute Immature Granulocyte 0.08 [facility] Absolute Lymph # 0.96 Low [facility] Absolute Gila # 0.[address] [facility] Interpretation and review of laboratory results Abnormal [facility] NRBC Automated 0.0 0.0 per 100 WBC [facility] Segs Absolute 14.26 High [facility] Interpretation and review of laboratory results Abnormal [facility] GFR >60 >60 mL/min [facility] GFR Non- >60 >60 mL/min [facility] Interpretation and review of laboratory results Abnormal [facility] No Panel InformationOrdered By: Howard Aldridge on 01-05-2022 [facility] Work Phone: PLT, Immature Fract.on 01-05 Platelet, Fluoresc. 250 k/uL Normal 138-453 [facility] Comment on above: Performed By: #### C DP, MELVIN, BMPX, IPF #### [facility] [address] [id number] Daycare Manager: Francisco J Fonseca MD PLT, Immature Fract. 10.5 % High 1.1-10.3 [facility] Comment on above: Performed By: #### C DP, MELVIN, BMPX, IPF #### [facility] [address] [place] [address] Daycare Manager: Francisco J Fonseca MD Phosphorus, Inorg.on 022 Phosphorus, Inorg. 2.4 mg/dL Low 2.5-4.5 [facility] Comment on above: Performed By: #### C DP, MELVIN, BMPX, IPF #### [facility] [employer] [address] [place] [address] Daycare Manager: Francisco J Fonseca MD Phosphorus, Inorg. 1.9 mg/dL Low 2.5-4.5 [facility] Comment on above: Performed By: #### C DP, MELVIN, BMPX, IPF #### [facility] [employer] [facility] [address] [place] [address] Daycare Manager: Francisco J Fonseca MD Basic Metab w/rfx MGon 01-04 Potassium [Moles/Vol] 3.4 mmol/L Low 3.7-5.3 [facility] Comment on above: Performed By: #### C DP, MELVIN, BMPX, IPF #### [facility] [employer] [place]) [address] [place] [address] Daycare Manager: Francisco J Fonseca MD (cont.) [facility] Comment on above: Result Comment: Aver age GFR for 70 or more years old: 75 mL/min/1.73sq m Chronic Kidney Disease: <60 mL/min/1.73sq m Kidney failure: <15 mL/min/1.73sq m eGFR calculated using average adult body mass. Additional eGFR calculator available at: http://www.The Original SoupMan.Sealed/multiple_crcl_2012.htm Performed By: #### C DP, MELVIN, BMPX, IPF #### [facility] [address] [place] [address] Daycare Manager: Francisco J Fonseca MD Anion gap [Moles/Vol] 12 mmol/L Normal 9-17 [facility] Comment on above: Performed By: #### C DP, MELVIN, BMPX, IPF #### [facility] [employer] [place] [address] [place] [address] Daycare Manager: Francisco J Fonseca MD Calcium [Mass/Vol] 8.1 mg/dL Low 8.6-10.4 [facility] Comment on above: Performed By: #### C DP, MELIVN, BMPX, IPF #### [facility] [employer] [place] [address] [place] [address] Daycare Manager: Francisco J Fonseca MD Chloride [Moles/Vol] 99 mmol/L Normal 98-107 [facility] Comment on above: Performed By: #### C DP, MELVIN, BMPX, IPF #### [facility] [employer] [address] [place] [address] Daycare Manager: Francisco J Fonseca MD CO2 [Moles/Vol] 23 mmol/L Normal 20-31 [facility] Comment on above: Performed By: #### C DP, MELVIN, BMPX, IPF #### [facility] [employer] [place] [address] [place] [address] Daycare Manager: Francisco J Fonseca MD Creatinine [Mass/Vol] 0.61 mg/dL Low 0.70-1.20 [facility] Comment on above: Performed By: #### C DP, MELVIN, BMPX, IPF #### [facility] [employer] [facility] [address] [place] [address] Daycare Manager: Francisco J Fonseca MD GFR, Amer >60 Normal >60 [facility] Comment on above: Performed By: #### C DP, MELVIN, BMPX, IPF #### [facility] [employer] [facility] [address] [place] [address] Daycare Manager: Francisco J Fonseca MD GFR,non Amer >60 Normal >60 [facility] Comment on above: Performed By: #### C DP, MELVIN, BMPX, IPF #### [address] [address] Daycare Manager: Francisco J Fonseca MD Glucose [Mass/Vol] 125 mg/dL High 70-99 [facility] Comment on above: Performed By: #### C DP, MELVIN, BMPX, IPF #### [address] [address] Daycare Manager: Francisco J Fonseca MD Sodium [Moles/Vol] 134 mmol/L Low 135-144 [facility] Comment on above: Performed By: #### C DP, MELVIN, BMPX, IPF #### [address] [address] Daycare Manager: Francisco J Fonseca MD Urea nitrogen [Mass/Vol] 19 mg/dL Normal 8-23 [facility] Comment on above: Performed By: #### C DP, MELVIN, BMPX, IPF #### [address] [address] Daycare Manager: Francisco J Fonseca MD (cont.) [facility] Comment on above: Result Comment: Aver age GFR for 70 or more years old: 75 mL/min/1.73sq m Chronic Kidney Disease: <60 mL/min/1.73sq m Kidney failure: <15 mL/min/1.73sq m eGFR calculated using average adult body mass. Additional eGFR calculator available at: http://www.The Original SoupMan.com/multiple_crcl_2012.htm Performed By: #### C DP, MELVIN, BMPX, IPF #### [address] [address] Daycare Manager: Francisco J Fonseca MD Anion gap [Moles/Vol] 13 mmol/L Normal 9-17 [facility] Comment on above: Performed By: #### C DP, MELVIN, BMPX, IPF #### [facility] [address] [place] [address] Daycare Manager: Francisco J Fonseca MD Calcium [Mass/Vol] 8.4 mg/dL Low 8.6-10.4 [facility] Comment on above: Performed By: #### C DP, MELVIN, BMPX, IPF #### [facility] [address] [place] [address] Daycare Manager: Francisco J Fonseca MD Chloride [Moles/Vol] 101 mmol/L Normal 98-107 [facility] Comment on above: Performed By: #### C DP, MELVIN, BMPX, IPF #### [facility] [address] [place] [address] Daycare Manager: Francisco J Fonseca MD CO2 [Moles/Vol] 23 mmol/L Normal 20-31 [facility] Comment on above: Performed By: #### C DP, MELVIN, BMPX, IPF #### [facility] [address] [place] [address] Daycare Manager: Francisco J Fonseca MD Creatinine [Mass/Vol] 0.73 mg/dL Normal 0.70-1.20 [facility] Comment on above: Performed By: #### C DP, MELVIN, BMPX, IPF #### [facility] [employer] [address] [place] [address] Daycare Manager: Francisco J Fonseca MD GFR, Amer >60 Normal >60 [facility] Comment on above: Performed By: #### C DP, MELVIN, BMPX, IPF #### [facility] [address] [place] [address] Daycare Manager: Francisco J Fonseca MD GFR,non Amer >60 Normal >60 [facility] Comment on above: Performed By: #### C DP, MELVIN, BMPX, IPF #### [facility] [address] [place] [address] Daycare Manager: Francisco J Fonseca MD Glucose [Mass/Vol] 124 mg/dL High 70-99 [facility] Comment on above: Performed By: #### C DP, MELVIN, BMPX, IPF #### [facility] [address] [place] [address] Daycare Manager: Francisco J Fonseca MD Potassium [Moles/Vol] 3.9 mmol/L Normal 3.7-5.3 [facility] Comment on above: Performed By: #### C DP, MELVIN, BMPX, IPF #### [facility] [address] [place] [address] Daycare Manager: Francisco J Fonseca MD Sodium [Moles/Vol] 137 mmol/L Normal 135-144 [facility] Comment on above: Performed By: #### C DP, MELVIN, BMPX, IPF #### [facility] [employer] [facility] [address] [place] [address] Daycare Manager: Francisco J Fonseca MD Urea nitrogen [Mass/Vol] 24 mg/dL High 8-23 [facility] Comment on above: Performed By: #### C DP, MELVIN, BMPX, IPF #### [facility] [employer] [facility] [address] [place] [address] Daycare Manager: Francisco J Fonseca MD (cont.) Normal [facility] Comment on above: Result Comment: Aver age GFR for 70 or more years old: 75 mL/min/1.73sq m Chronic Kidney Disease: <60 mL/min/1.73sq m Kidney failure: <15 mL/min/1.73sq m eGFR calculated using average adult body mass. Additional eGFR calculator available at: http://www.The Original SoupMan.Sealed/multiple_crcl_2012.htm Performed By: #### B MPX, MELVIN #### [facility] [employer] [address] [place] [address] Daycare Manager: Francisco J Fonseca MD Anion gap [Moles/Vol] 12 mmol/L Normal 9-17 [facility] Comment on above: Performed By: #### B MPX, MELVIN #### [facility] [address] [place] [address] Daycare Manager: Francisco J Fonseca MD Calcium [Mass/Vol] 8.5 mg/dL Low 8.6-10.4 [facility] Comment on above: Performed By: #### B MPX, MELVIN #### [facility] [address] [place] [address] Daycare Manager: Francisco J Fonseca MD Chloride [Moles/Vol] 101 mmol/L Normal 98-107 [facility] Comment on above: Performed By: #### B MPX, MELVIN #### [facility] [employer] [address] [place] [address] Daycare Manager: Francisco J Fonseca MD CO2 [Moles/Vol] 23 mmol/L Normal 20-31 [facility] Comment on above: Performed By: #### B MPX, MELVIN #### [address] [address] Daycare Manager: Francisco J Fonseca MD Creatinine [Mass/Vol] 0.82 mg/dL Normal 0.70-1.20 [facility] Comment on above: Performed By: #### B MPX, MELVIN #### [facility] [address] [place] [address] Daycare Manager: Francisco J Fonseca MD GFR, Amer >60 Normal >60 [facility] Comment on above: Performed By: #### B MPX, MELVIN #### [facility] [employer] [address] [place] [address] Daycare Manager: Francisco J Fonseca MD GFR,non Amer >60 Normal >60 [facility] Comment on above: Performed By: #### B MPX, MELVIN #### [facility] [employer] [facility] [address] [place] [address] Daycare Manager: Francisco J Fonseca MD Glucose [Mass/Vol] 100 mg/dL High 70-99 [facility] Comment on above: Performed By: #### B MPX, MELVIN #### [facility] [address] [place] [address] Daycare Manager: Francisco J Fonseca MD Potassium [Moles/Vol] 3.9 mmol/L Normal 3.7-5.3 [facility] Comment on above: Performed By: #### B MPX, MELVIN #### [facility] [address] [place] [address] Daycare Manager: Francisco J Fonseca MD Sodium [Moles/Vol] 136 mmol/L Normal 135-144 [facility] Comment on above: Performed By: #### B MPX, MELVIN #### [facility] [address] [place] [address] Daycare Manager: Francisco J Fonseca MD Urea nitrogen [Mass/Vol] 26 mg/dL High 8-23 [facility] Comment on above: Performed By: #### B MPX, MELVIN #### [facility] [address] [place] [address] Daycare Manager: Francisco J Fonseca MD (cont.) [facility] Comment on above: Result Comment: Aver age GFR for 70 or more years old: 75 mL/min/1.73sq m Chronic Kidney Disease: <60 mL/min/1.73sq m Kidney failure: <15 mL/min/1.73sq m eGFR calculated using average adult body mass. Additional eGFR calculator available at: http://www.The Original SoupMan.com/multiple_crcl_2012.htm Performed By: #### C DP #### [facility] [address] [place] [address] Daycare Manager: Francisco J Fonseca MD Anion gap [Moles/Vol] 11 mmol/L Normal 9-17 [facility] Comment on above: Performed By: #### C DP #### [facility] [address] [place] [address] Daycare Manager: Francisco J Fonseca MD Calcium [Mass/Vol] 8.3 mg/dL Low 8.6-10.4 [facility] Comment on above: Performed By: #### C DP #### [facility] [address] [place] [address] Daycare Manager: Francisco J Fonseca MD Chloride [Moles/Vol] 104 mmol/L Normal 98-107 [facility] Comment on above: Performed By: #### C DP #### [address] [address] Daycare Manager: Francisco J Fonseca MD CO2 [Moles/Vol] 21 mmol/L Normal 20-31 [facility] Comment on above: Performed By: #### C DP #### [address] [address] Daycare Manager: Francisco J Fonseca MD Creatinine [Mass/Vol] 0.83 mg/dL Normal 0.70-1.20 [facility] Comment on above: Performed By: #### C DP #### [address] [address] Daycare Manager: Francisco J Fonseca MD GFR, Amer >60 Normal >60 [facility] Comment on above: Performed By: #### C DP #### [address] [address] Daycare Manager: Francisco J Fonseca MD GFR,non Amer >60 Normal >60 [facility] Comment on above: Performed By: #### C DP #### [address] [address] Daycare Manager: Francisco J Fonseca MD Glucose [Mass/Vol] 71 mg/dL Normal 70-99 [facility] Comment on above: Performed By: #### C DP #### [address] [address] Daycare Manager: Francisco J Fonseca MD Potassium [Moles/Vol] 4.5 mmol/L Normal 3.7-5.3 [facility] Comment on above: Result Comment: SPEC IMEN SLIGHTLY HEMOLYZED, RESULTS MAY BE ADVERSELY AFFECTED. Performed By: #### C DP #### [place] [address] Daycare Manager: Francisco J Fonseca MD Sodium [Moles/Vol] 136 mmol/L Normal 135-144 [facility] Comment on above: Performed By: #### C DP #### [address] [address] Daycare Manager: Francisco J Fonseca MD Urea nitrogen [Mass/Vol] 29 mg/dL High 8-23 [facility] Comment on above: Performed By: #### C DP #### [place] [address] Daycare Manager: Francisco J Fonseca MD CBC with Diffon 01-04-2022 Abs. Basophil 0.04 k/uL Normal 0.00-0.20 [facility] Comment on above: Performed By: #### C DP #### [place] [address] Daycare Manager: Francisco J Fonseca MD Abs. Eosinophil <0.03 Normal 0.00-0.44 [facility] Comment on above: Performed By: #### C DP #### [address] [address] Daycare Manager: Francisco J Fonseca MD Abs.Imm.Granulocyte 0.20 k/uL Normal 0.00-0.30 [facility] Comment on above: Performed By: #### C DP #### [address] [address] Daycare Manager: Francisco J Fonseca MD Abs.Neutrophil (Seg) 18.94 k/uL High 1.50-8.10 [facility] Comment on above: Performed By: #### C DP #### [address] [address] Daycare Manager: Francisco J Fonseca MD Basophils/100 WBC (Bld) 0 % Normal 0-2 [facility] Comment on above: Performed By: #### C DP #### [address] [address] Daycare Manager: Francisco J Fonseca MD Eosinophils/100 WBC (Bld) 0 % Low 1-4 [facility] Comment on above: Performed By: #### C DP #### [address] [address] Daycare Manager: Francisco J Fonseca MD Erythrocyte distribution width (RBC) [Ratio] 19.0 % High 11.8-14.4 [facility] Comment on above: Performed By: #### C DP #### [address] [address] Daycare Manager: Francisco J Fonseca MD Hematocrit (Bld) [Volume fraction] 35.1 % Low 40.7-50.3 [facility] Comment on above: Performed By: #### C DP #### [address] [address] Daycare Manager: Francisco J Fonseca MD Hemoglobin (Bld) [Mass/Vol] 12.0 g/dL Low 13.0-17.0 [facility] Comment on above: Performed By: #### C DP #### [address] [address] Daycare Manager: Francisco J Fonseca MD Immature granulocytes/100 WBC (Bld) 1 % High 0 [facility] Comment on above: Performed By: #### C DP #### [place] [address] Daycare Manager: Francisco J Fonseca MD Lymphocytes (Bld) [#/Vol] 0.89 10*3/uL Low 1.10-3.70 [facility] Comment on above: Performed By: #### C DP #### [place] [address] Daycare Manager: Francisco J Fonseca MD Lymphocytes/100 WBC (Bld) 4 % Low 24-43 [facility] Comment on above: Performed By: #### C DP #### [place] [address] Daycare Manager: Francisco J Fonseca MD MCH (RBC) [Entitic mass] 27.6 pg Normal 25.2-33.5 [facility] Comment on above: Performed By: #### C DP #### [place] [address] Daycare Manager: Francisco J Fonseca MD MCHC (RBC) [Mass/Vol] 34.2 g/dL Normal 28.4-34.8 [facility] Comment on above: Performed By: #### C DP #### [place] [address] Daycare Manager: Francisco J Fonseca MD MCV (RBC) [Entitic vol] 80.7 fL Low 82.6-102.9 [facility] Comment on above: Performed By: #### C DP #### [place] [address] Daycare Manager: Francisco J Fonseca MD Monocytes (Bld) [#/Vol] 1.33 10*3/uL High 0.10-1.20 [facility] Comment on above: Performed By: #### C DP #### [address] [address] Daycare Manager: Francisco J Fonseca MD Monocytes/100 WBC (Bld) 6 % Normal 3-12 [facility] Comment on above: Performed By: #### C DP #### [address] [address] Daycare Manager: Francisco J Fonseca MD Neutrophil (Seg) 89 % High 36-65 [facility] Comment on above: Performed By: #### C DP #### [address] [address] Daycare Manager: Francisco J Fonseca MD NRBC Automated 0.0 per 100 WBC Normal 0.0 [facility] Comment on above: Performed By: #### C DP #### [address] [address] Daycare Manager: Francisco J Fonseca MD Platelet mean volume (Bld) [Entitic vol] 12.3 fL Normal 8.1-13.5 [facility] Comment on above: Performed By: #### C DP #### [address] [address] Daycare Manager: Francisco J Fonseca MD Platelets (Bld) [#/Vol] 245 10*3/uL Normal 138-453 [facility] Comment on above: Performed By: #### C DP #### [address] [address] Daycare Manager: Francisco J Fonseca MD RBC (Bld) [#/Vol] 4.35 10*6/uL Normal 4.21-5.77 [facility] Comment on above: Performed By: #### C DP #### [address] [address] Daycare Manager: Francisco J Fonseca MD RBC morphology finding Nom (Bld) ANISOCYTOSIS PRESENT Normal [facility] Comment on above: Result Comment: MICR OCYTOSIS PRESENT Performed By: #### C DP #### [facility] [employer] [address] [place], [place] [id number] Daycare Manager: Francisco J Fonseca MD WBC (Bld) [#/Vol] 21.4 10*3/uL High 3.5-11.3 [facility] Comment on above: Performed By: #### C DP #### [facility] [address] [place], [place] [id number] Daycare Manager: Francisco J Fonseca MD Cult,Urineon 01-04-2022 Cult,Urine Specimen Description .INDWELLING CATH URINE Culture NO GROWTH Report Status FINAL 01/04/2022 Normal [facility] Comment on above: Performed By: #### C DP, MELVIN, BMPX, IPF #### [facility] [employer] [facility] [place], [place] [id number] Daycare Manager: Francisco J Fonseca MD Laboratory - Chemistry and C hemistry - challengeon 01-04-2022 Anion gap [Moles/Vol] 15 mmol/L 9 - 17 mmol/L [facility] Calcium [Mass/Vol] 8.2 mg/dL Low 8.6 - 10. 4 mg/dL [facility] [employer] [facility] Chloride [Moles/Vol] 98 mmol/L 98 - 10 7 mmol/L [facility] [employer] [facility] CO2 [Moles/Vol] 23 mmol/L 20 - 31 mmol/L [facility] [employer] Creatinine [Mass/Vol] 0.66 mg/dL Low 0.70 - 1.20 mg/dL [facility] [employer] GFR/1.73 sq M.predicted MDRD (S/P/Bld) [Vol rate/Area] [facility] [employer] Comment on above: Average GFR for 70 o r more years old: 75 mL/min/1.73sq m Chronic Kidney Disease: <60 mL/min/1.73sq m Kidney failure: <15 mL/min/1.73sq m eGFR calculated using average adult body mass. Additional eGFR calculator available at: http://www.The Original SoupMan.Sealed/multiple_crcl_2012.htm Glucose [Mass/Vol] 90 mg/dL 70 - 99 mg/dL [facility] Phosphate [Mass/Vol] 1.9 mg/dL Low 2.5 - 4 .5 mg/dL [facility] Potassium [Moles/Vol] 3.7 mmol/L 3.7 - 5.3 mmol/L [facility] Sodium [Moles/Vol] 136 mmol/L 135 - 144 mmol/L [facility] Urea nitrogen (BldV) [Mass/Vol] 20 mg/dL 8 - 23 mg/dL [facility] Magnesium [Mass/Vol] 1.5 mg/dL Low 1.6 - 2 .6 mg/dL [facility] Anion gap [Moles/Vol] 12 mmol/L 9 - 17 mmol/L [facility] Calcium [Mass/Vol] 8.1 mg/dL Low 8.6 - 10. 4 mg/dL [facility] Chloride [Moles/Vol] 99 mmol/L 98 - 10 7 mmol/L [facility] CO2 [Moles/Vol] 23 mmol/L 20 - 31 mmol/L [facility] Creatinine [Mass/Vol] 0.61 mg/dL Low 0.70 - 1.20 mg/dL [facility] GFR/1.73 sq M.predicted MDRD (S/P/Bld) [Vol rate/Area] [facility] Comment on above: Average GFR for 70 o r more years old: 75 mL/min/1.73sq m Chronic Kidney Disease: <60 mL/min/1.73sq m Kidney failure: <15 mL/min/1.73sq m eGFR calculated using average adult body mass. Additional eGFR calculator available at: http://www.The Original SoupMan.Sealed/multiple_crcl_2012.htm Glucose [Mass/Vol] 125 mg/dL High 70 - 99 mg/dL [facility] [facility] Potassium [Moles/Vol] 3.4 mmol/L Low 3.7 - 5.3 mmol/L [facility] Sodium [Moles/Vol] 134 mmol/L Low 135 - 144 mmol/L [facility] Urea nitrogen (BldV) [Mass/Vol] 19 mg/dL 8 - 23 mg/dL [facility] Phosphate [Mass/Vol] 2.2 mg/dL Low 2.5 - 4 .5 mg/dL [facility] Anion gap [Moles/Vol] 13 mmol/L 9 - 17 mmol/L [facility] Calcium [Mass/Vol] 8.4 mg/dL Low 8.6 - 10. 4 mg/dL [facility] Chloride [Moles/Vol] 101 mmol/L 98 - 10 7 mmol/L [facility] CO2 [Moles/Vol] 23 mmol/L 20 - 31 mmol/L [facility] Creatinine [Mass/Vol] 0.73 mg/dL 0.70 - 1.20 mg/dL [facility] GFR/1.73 sq M.predicted MDRD (S/P/Bld) [Vol rate/Area] [facility] Comment on above: Average GFR for 70 o r more years old: 75 mL/min/1.73sq m Chronic Kidney Disease: <60 mL/min/1.73sq m Kidney failure: <15 mL/min/1.73sq m eGFR calculated using average adult body mass. Additional eGFR calculator available at: http://www.Health Elements/multiple_crcl_2011.htm Glucose [Mass/Vol] 124 mg/dL High 70 - 99 mg/dL [facility] Phosphate [Mass/Vol] 2.5 mg/dL 2.5 - 4 .5 mg/dL [facility] Potassium [Moles/Vol] 3.9 mmol/L 3.7 - 5.3 mmol/L [facility] Sodium [Moles/Vol] 137 mmol/L 135 - 144 mmol/L [facility] Urea nitrogen (BldV) [Mass/Vol] 24 mg/dL High 8 - 23 mg/dL [facility] Glucose [Mass/Vol] 108 mg/dL 75 - 110 mg/dL [facility] Anion gap [Moles/Vol] 12 mmol/L 9 - 17 mmol/L [facility] Calcium [Mass/Vol] 8.5 mg/dL Low 8.6 - 10. 4 mg/dL [facility] Chloride [Moles/Vol] 101 mmol/L 98 - 10 7 mmol/L [facility] CO2 [Moles/Vol] 23 mmol/L 20 - 31 mmol/L [facility] Creatinine [Mass/Vol] 0.82 mg/dL 0.70 - 1.20 mg/dL [facility] GFR/1.73 sq M.predicted MDRD (S/P/Bld) [Vol rate/Area] [facility] Comment on above: Average GFR for 70 o r more years old: 75 mL/min/1.73sq m Chronic Kidney Disease: <60 mL/min/1.73sq m Kidney failure: <15 mL/min/1.73sq m eGFR calculated using average adult body mass. Additional eGFR calculator available at: http://www.Health Elements/multiple_crcl_2011.htm Glucose [Mass/Vol] 100 mg/dL High 70 - 99 mg/dL [facility] Phosphate [Mass/Vol] 2.7 mg/dL 2.5 - 4 .5 mg/dL [facility] Potassium [Moles/Vol] 3.9 mmol/L 3.7 - 5.3 mmol/L [facility] Sodium [Moles/Vol] 136 mmol/L 135 - 144 mmol/L [facility] Urea nitrogen (BldV) [Mass/Vol] 26 mg/dL High 8 - 23 mg/dL [facility] Glucose [Mass/Vol] 81 mg/dL 75 - 110 mg/dL [facility] Anion gap [Moles/Vol] 11 mmol/L 9 - 17 mmol/L [facility] Calcium [Mass/Vol] 8.3 mg/dL Low 8.6 - 10. 4 mg/dL [facility] Chloride [Moles/Vol] 104 mmol/L 98 - 10 7 mmol/L [facility] CO2 [Moles/Vol] 21 mmol/L 20 - 31 mmol/L [facility] Creatinine [Mass/Vol] 0.83 mg/dL 0.70 - 1.20 mg/dL [facility] GFR/1.73 sq M.predicted MDRD (S/P/Bld) [Vol rate/Area] [facility] Comment on above: Average GFR for 70 o r more years old: 75 mL/min/1.73sq m Chronic Kidney Disease: <60 mL/min/1.73sq m Kidney failure: <15 mL/min/1.73sq m eGFR calculated using average adult body mass. Additional eGFR calculator available at: http://www.Health Elements/multiple_crcl_2012.htm Glucose [Mass/Vol] 71 mg/dL 70 - 99 mg/dL [facility] Phosphate [Mass/Vol] 3.2 mg/dL 2.5 - 4 .5 mg/dL [facility] Potassium [Moles/Vol] 4.5 mmol/L 3.7 - 5.3 mmol/L [facility] Comment on above: SPECIMEN SLIGHTLY HE MOLYZED, RESULTS MAY BE ADVERSELY AFFECTED. Sodium [Moles/Vol] 136 mmol/L 135 - 144 mmol/L [facility] Urea nitrogen (BldV) [Mass/Vol] 29 mg/dL High 8 - 23 mg/dL [facility] Laboratory - Hematology and Cell countson 01-04-2022 Basophils (Bld) [#/Vol] 0.04 10*3/uL [facility] Basophils/100 WBC (Bld) 0 % 0 - 2 % [facility] Eosinophils/100 WBC (Bld) 0 % Low 1 - 4 % [facility] Hematocrit (Bld) [Volume fraction] 35.1 % Low 40.7 - 50.3 % [facility] Hemoglobin (Bld) [Mass/Vol] 12.0 g/dL Low 13.0 - 17.0 g/dL [facility] Immature granulocytes/100 WBC (Bld) 1 % High 0 [facility] Lymphocytes/100 WBC (Bld) 4 % Low 24 - 43 % [facility] MCH (RBC) [Entitic mass] 27.6 pg 25.2 - 33.5 pg [facility] MCHC (RBC) [Mass/Vol] 34.2 g/dL 28.4 - 34.8 g/dL [facility] MCV (RBC) [Entitic vol] 80.7 fL Low 82.6 - 102.9 fL [facility] Monocytes/100 WBC (Bld) 6 % 3 - 12 % [facility] Platelet distribution width (Bld) [Ratio] 19.0 % High 11.8 - 14.4 % [facility] Platelet mean volume (Bld) [Entitic vol] 12.3 fL 8.1 - 13.5 fL [facility] Platelets (Bld) [#/Vol] 245 10*3/uL [facility] RBC (Bld) [#/Vol] 4.35 10*6/uL 4.21 - 5.77 m/uL [facility] RBC (Bld) [#/Vol] ANISOCYTOSIS PRESENT [facility] Comment on above: MICROCYTOSIS PRESENT Segmented neutrophils/100 WBC (Bld) 89 % High 36 - 65 % [facility] WBC (Bld) [#/Vol] 21.4 10*3/uL [facility] - Microbiology an d Antimicrobial susceptibilityon 01-04-2022 Bacteria identified Cx Nom (U) NO GROWTH [facility] Magnesiumon 01-04-2022 Magnesium [Mass/Vol] 1.5 mg/dL Low 1.6-2.6 [facility] Comment on above: Performed By: #### C DP, MELVIN, BMPX, IPF #### [facility] [address] [place], [place] [id number] Daycare Manager: Francisco J Fonseca MD No Panel Informationon 01-04 GFR >60 >60 mL/min [facility] GFR Non- >60 >60 mL/min [facility] Interpretation and review of laboratory results Abnormal [facility] Interpretation and review of laboratory results Abnormal [facility] GFR >60 >60 mL/min [facility] GFR Non- >60 >60 mL/min [facility] Interpretation and review of laboratory results Abnormal [facility] Interpretation and review of laboratory results Abnormal [facility] GFR >60 >60 [...] Low [facility] Absolute Gila # 1.33 High [facility] [...] 022 Phosphorus, Inorg. 2.2 mg/dL Low 2.5-4.5 [facility] Comment on above: Performed By: #### C DP, MELVIN, BMPX, IPF #### [employer] [facility] [address] [place] [address] Daycare Manager: Francisco J Fonseca MD Phosphorus, Inorg. 2.5 mg/dL Normal 2.5-4.5 [facility] Comment on above: Performed By: #### C DP, MELVIN, BMPX, IPF #### [facility] [address] [id number] Daycare Manager: Francisco J Fonseca MD Phosphorus, Inorg. 2.7 mg/dL Normal 2.5-4.5 [facility] Comment on above: Performed By: #### B MPX, MELVIN #### [address] [id number] Daycare Manager: Francisco J Fonseca MD Phosphorus, Inorg. 3.2 mg/dL Normal 2.5-4.5 [facility] Comment on above: Performed By: #### C DP #### [place] [address] Daycare Manager: Francisco J Fonseca MD Basic Metab w/rfx MGon 01-03 (cont.) Normal [facility] Comment on above: Result Comment: Aver age GFR for 70 or more years old: 75 mL/min/1.73sq m Chronic Kidney Disease: <60 mL/min/1.73sq m Kidney failure: <15 mL/min/1.73sq m eGFR calculated using average adult body mass. Additional eGFR calculator available at: http://www.Health Elements/multiple_crcl_2011.htm Performed By: #### C DP, MELVIN, BMPX, IPF #### [place] [address] Daycare Manager: Francisco J Fonseca MD Anion gap [Moles/Vol] 12 mmol/L Normal 9-17 [facility] Comment on above: Performed By: #### C DP, MELVIN, BMPX, IPF #### [facility] [employer] [facility] [address] [place] [address] Daycare Manager: Francisco J Fonseca MD Calcium [Mass/Vol] 8.3 mg/dL Low 8.6-10.4 [facility] Comment on above: Performed By: #### C DP, MELVIN, BMPX, IPF #### [facility] [address] [place] [address] Daycare Manager: Francisco J Fonseca MD Chloride [Moles/Vol] 102 mmol/L Normal 98-107 [facility] Comment on above: Performed By: #### C DP, MELVIN, BMPX, IPF #### [facility] [address] [place] [address] Daycare Manager: Francisco J Fonseca MD CO2 [Moles/Vol] 21 mmol/L Normal 20-31 [facility] Comment on above: Performed By: #### C DP, MELVIN, BMPX, IPF #### [facility] [address] [place] [address] Daycare Manager: Francisco J Fonseca MD Creatinine [Mass/Vol] 0.88 mg/dL Normal 0.70-1.20 [facility] Comment on above: Performed By: #### C DP, MELVIN, BMPX, IPF #### [facility] [address] [place] [address] Daycare Manager: Francisco J Fonseca MD GFR, Amer >60 Normal >60 [facility] Comment on above: Performed By: #### C DP, MELVIN, BMPX, IPF #### [facility] [address] [place] [address] Daycare Manager: Francisco J Fonseca MD GFR,non Amer >60 Normal >60 [facility] Comment on above: Performed By: #### C DP, MELVIN, BMPX, IPF #### [facility] [employer] [facility] [address] [place] [address] Daycare Manager: Francisco J Fonseca MD Glucose [Mass/Vol] 74 mg/dL Normal 70-99 [facility] Comment on above: Performed By: #### C DP, MELVIN, BMPX, IPF #### [facility] [address] [place] [address] Daycare Manager: Francisco J Fonseca MD Potassium [Moles/Vol] 4.2 mmol/L Normal 3.7-5.3 [facility] Comment on above: Performed By: #### C DP, MELVIN, BMPX, IPF #### [facility] [address] [place] [address] Daycare Manager: Francisco J Fonseca MD Sodium [Moles/Vol] 135 mmol/L Normal 135-144 [facility] Comment on above: Performed By: #### C DP, MELVIN, BMPX, IPF #### [facility] [address] [place] [address] Daycare Manager: Francisco J Fonseca MD Urea nitrogen [Mass/Vol] 29 mg/dL High 8-23 [facility] Comment on above: Performed By: #### C DP, MELVIN, BMPX, IPF #### [address] [address] Daycare Manager: Francisco J Fonseca MD (cont.) [facility] Comment on above: Result Comment: Aver age GFR for 70 or more years old: 75 mL/min/1.73sq m Chronic Kidney Disease: <60 mL/min/1.73sq m Kidney failure: <15 mL/min/1.73sq m eGFR calculated using average adult body mass. Additional eGFR calculator available at: http://www.The Original SoupMan.Sealed/multiple_crcl_2012.htm Performed By: #### C DP #### [address] [address] Daycare Manager: Francisco J Fonseca MD Anion gap [Moles/Vol] 12 mmol/L Normal 9-17 [facility] Comment on above: Performed By: #### C DP #### [facility] [employer] [facility] [address] [place] [address] Daycare Manager: Francisco J Fonseca MD Calcium [Mass/Vol] 8.4 mg/dL Low 8.6-10.4 [facility] Comment on above: Performed By: #### C DP #### [address] [place] [address] Daycare Manager: Francisco J Fonseca MD Chloride [Moles/Vol] 103 mmol/L Normal 98-107 [facility] Comment on above: Performed By: #### C DP #### [address] [address] Daycare Manager: Francisco J Fonseca MD CO2 [Moles/Vol] 21 mmol/L Normal 20-31 [facility] Comment on above: Performed By: #### C DP #### [address] [address] Daycare Manager: Francisco J Fonseca MD Creatinine [Mass/Vol] 0.93 mg/dL Normal 0.70-1.20 [facility] Comment on above: Performed By: #### C DP #### [address] [address] Daycare Manager: Francisco J Fonseca MD GFR, Amer >60 Normal >60 [facility] Comment on above: Performed By: #### C DP #### [address] [address] Daycare Manager: Francisco J Fonseca MD GFR,non Amer >60 Normal >60 [facility] Comment on above: Performed By: #### C DP #### [address] [address] Daycare Manager: Francisco J Fonseca MD Glucose [Mass/Vol] 155 mg/dL High 70-99 [facility] Comment on above: Performed By: #### C DP #### [address] [address] Daycare Manager: Francisco J Fonseca MD Potassium [Moles/Vol] 3.9 mmol/L Normal 3.7-5.3 [facility] Comment on above: Performed By: #### C DP #### [address] [address] Daycare Manager: Francisco J Fonseca MD Sodium [Moles/Vol] 136 mmol/L Normal 135-144 [facility] Comment on above: Performed By: #### C DP #### [address] [address] Daycare Manager: Francisco J Fonseca MD Urea nitrogen [Mass/Vol] 28 mg/dL High 8-23 [facility] Comment on above: Performed By: #### C DP #### [address] [address] Daycare Manager: Francisco J Fonseca MD (cont.) Normal [facility] Comment on above: Result Comment: Aver age GFR for 70 or more years old: 75 mL/min/1.73sq m Chronic Kidney Disease: <60 mL/min/1.73sq m Kidney failure: <15 mL/min/1.73sq m eGFR calculated using average adult body mass. Additional eGFR calculator available at: http://www.Health Elements/multiple_crcl_2011.htm Performed By: #### C DP, MELVIN, BMPX, IPF #### [address] [address] Daycare Manager: Francisco J Fonseca MD Anion gap [Moles/Vol] 11 mmol/L Normal 9-17 [facility] Comment on above: Performed By: #### C DP, MELVIN, BMPX, IPF #### [address] [address] Daycare Manager: Francisco J Fonseca MD Calcium [Mass/Vol] 8.4 mg/dL Low 8.6-10.4 [facility] Comment on above: Performed By: #### C DP, MELVIN, BMPX, IPF #### [facility] [address] [place] [address] Daycare Manager: Francisco J Fonseca MD Chloride [Moles/Vol] 103 mmol/L Normal 98-107 [facility] Comment on above: Performed By: #### C DP, MELVIN, BMPX, IPF #### [facility] [address] [place] [address] Daycare Manager: Francisco J Fonseca MD CO2 [Moles/Vol] 24 mmol/L Normal 20-31 [facility] Comment on above: Performed By: #### C DP, MELVIN, BMPX, IPF #### [facility] [address] [place] [address] Daycare Manager: Francisco J Fonseca MD Creatinine [Mass/Vol] 0.92 mg/dL Normal 0.70-1.20 [facility] Comment on above: Performed By: #### C DP, MELVIN, BMPX, IPF #### [facility] [address] [place] [address] Daycare Manager: Francisco J Fonseca MD GFR, Amer >60 Normal >60 [facility] Comment on above: Performed By: #### C DP, MELVIN, BMPX, IPF #### [facility] [address] [place] [address] Daycare Manager: Francisco J Fonseca MD GFR,non Amer >60 Normal >60 [facility] Comment on above: Performed By: #### C DP, MELVIN, BMPX, IPF #### [facility] [address] [place] [address] Daycare Manager: Francisco J Fonseca MD Glucose [Mass/Vol] 226 mg/dL High 70-99 [facility] Comment on above: Performed By: #### C DP, MELVIN, BMPX, IPF #### [facility] [address] [place] [address] Daycare Manager: Francisco J Fonseca MD Potassium [Moles/Vol] 5.0 mmol/L Normal 3.7-5.3 [facility] Comment on above: Performed By: #### C DP, MELVIN, BMPX, IPF #### [facility] [address] [place] [address] Daycare Manager: Francisco J Fonseca MD Sodium [Moles/Vol] 138 mmol/L Normal 135-144 [facility] Comment on above: Performed By: #### C DP, MELVIN, BMPX, IPF #### [facility] [address] [place] [address] Daycare Manager: Francisco J Fonseca MD Urea nitrogen [Mass/Vol] 26 mg/dL High 8-23 [facility] Comment on above: Performed By: #### C DP, MELVIN, BMPX, IPF #### [facility]) [address] [place] [address] Daycare Manager: Francisco J Fonseca MD (cont.) [facility] Comment on above: Result Comment: Aver age GFR for 70 or more years old: 75 mL/min/1.73sq m Chronic Kidney Disease: <60 mL/min/1.73sq m Kidney failure: <15 mL/min/1.73sq m eGFR calculated using average adult body mass. Additional eGFR calculator available at: http://www.The Original SoupMan.Sealed/multiple_crcl_2012.htm Performed By: #### C DP, MELVIN, BMPX, IPF #### [address] [address] Daycare Manager: Francisco J Fonseca MD Anion gap [Moles/Vol] 13 mmol/L Normal 9-17 [facility] Comment on above: Performed By: #### C DP, MELVIN, BMPX, IPF #### [facility] [address] [place] [address] Daycare Manager: Francisco J Fonseca MD Calcium [Mass/Vol] 8.4 mg/dL Low 8.6-10.4 [facility] Comment on above: Performed By: #### C DP, MELVIN, BMPX, IPF #### [facility] [address] [place] [address] Daycare Manager: Francisco J Fonseca MD Chloride [Moles/Vol] 104 mmol/L Normal 98-107 [facility] Comment on above: Performed By: #### C DP, MELVIN, BMPX, IPF #### [facility] [employer] [facility]) [address] [place] [address] Daycare Manager: Francisco J Fonseca MD CO2 [Moles/Vol] 21 mmol/L Normal 20-31 [facility] Comment on above: Performed By: #### C DP, MELVIN, BMPX, IPF #### [address] [address] Daycare Manager: Francisco J Fonseca MD Creatinine [Mass/Vol] 0.84 mg/dL Normal 0.70-1.20 [facility] Comment on above: Performed By: #### C DP, MELVIN, BMPX, IPF #### [address] [address] Daycare Manager: Francisco J Fonseca MD GFR, Amer >60 Normal >60 [facility] Comment on above: Performed By: #### C DP, MELVIN, BMPX, IPF #### [address] [address] Daycare Manager: Francisco J Fonseca MD GFR,non Amer >60 Normal >60 [facility] Comment on above: Performed By: #### C DP, MELVIN, BMPX, IPF #### [facility] [address] [place] [address] Daycare Manager: Francisco J Fonseca MD Glucose [Mass/Vol] 176 mg/dL High 70-99 [facility] Comment on above: Performed By: #### C DP, MELVNI, BMPX, IPF #### [facility]) [address] [place] [address] Daycare Manager: Francisco J Fonseca MD Potassium [Moles/Vol] 4.5 mmol/L Normal 3.7-5.3 [facility] Comment on above: Performed By: #### C DP, MELVIN, BMPX, IPF #### [facility] [place] [address] Daycare Manager: Francisco J Fonseca MD Sodium [Moles/Vol] 138 mmol/L Normal 135-144 [facility] Comment on above: Performed By: #### C DP, MELVIN, BMPX, IPF #### [facility] [address] [place] [address] Daycare Manager: Francisco J Fonseca MD Urea nitrogen [Mass/Vol] 21 mg/dL Normal 8-23 [facility] Comment on above: Performed By: #### C DP, MELVIN, BMPX, IPF #### [facility] [address] [place] [address] Daycare Manager: Francisco J Fonseca MD (cont.) [facility] Comment on above: Result Comment: Aver age GFR for 70 or more years old: 75 mL/min/1.73sq m Chronic Kidney Disease: <60 mL/min/1.73sq m Kidney failure: <15 mL/min/1.73sq m eGFR calculated using average adult body mass. Additional eGFR calculator available at: http://www.The Original SoupMan.Sealed/multiple_crcl_2012.htm Performed By: #### C DP, MELVIN, BMPX, IPF #### [facility] [address] [place] [address] Daycare Manager: Francisco J Fonseca MD Anion gap [Moles/Vol] 6 mmol/L Low 9-17 [facility] Comment on above: Performed By: #### C DP, MELVIN, BMPX, IPF #### [employer] [facility] [address] [place] [address] Daycare Manager: Francisco J Fonseca MD Calcium [Mass/Vol] 8.5 mg/dL Low 8.6-10.4 [facility] Comment on above: Performed By: #### C DP, MELVIN, BMPX, IPF #### [facility] [address] [place] [address] Daycare Manager: Francisco J Fonseca MD Chloride [Moles/Vol] 105 mmol/L Normal 98-107 [facility] Comment on above: Performed By: #### C DP, MELVIN, BMPX, IPF #### [facility] [address] [place] [address] Daycare Manager: Francisco J Fonseca MD CO2 [Moles/Vol] 25 mmol/L Normal 20-31 [facility] Comment on above: Performed By: #### C DP, MELVIN, BMPX, IPF #### [address] [address] Daycare Manager: Francisco J Fonseca MD Creatinine [Mass/Vol] 0.75 mg/dL Normal 0.70-1.20 [facility] Comment on above: Performed By: #### C DP, MELVIN, BMPX, IPF #### [facility] [address] [place] [address] Daycare Manager: Francisco J Fonseca MD GFR, Amer >60 Normal >60 [facility] Comment on above: Performed By: #### C DP, MELVIN, BMPX, IPF #### [facility] [address] [place] [address] Daycare Manager: Francisco J Fonseca MD GFR,non Amer >60 Normal >60 [facility] Comment on above: Performed By: #### C DP, MELVIN, BMPX, IPF #### [facility] [address] [place] [address] Daycare Manager: Francisco J Fonseca MD Glucose [Mass/Vol] 81 mg/dL Normal 70-99 [facility] Comment on above: Performed By: #### C DP, MELVIN, BMPX, IPF #### [facility] [address] [place] [address] Daycare Manager: Francisco J Fonseca MD Potassium [Moles/Vol] 4.6 mmol/L Normal 3.7-5.3 [facility] Comment on above: Performed By: #### C DP, MELVIN, BMPX, IPF #### [address] [address] Daycare Manager: Francisco J Fonseca MD Sodium [Moles/Vol] 136 mmol/L Normal 135-144 [facility] Comment on above: Performed By: #### C DP, MELVIN, BMPX, IPF #### [place] [address] Daycare Manager: Francisco J Fonseca MD Urea nitrogen [Mass/Vol] 18 mg/dL Normal 8-23 [facility] Comment on above: Performed By: #### C DP, MELVIN, BMPX, IPF #### [place] [address] Daycare Manager: Francisco J Fonseca MD CBC with Diffon 01-03-2022 Abs. Basophil 0.00 k/uL Normal 0.0-0.2 [facility] Comment on above: Performed By: #### C DP #### [place] [address] Daycare Manager: Francisco J Fonseca MD Abs.Imm.Granulocyte 0.00 k/uL Normal 0.00-0.30 [facility] Comment on above: Performed By: #### C DP #### [place] [address] Daycare Manager: Francisco J Fonseca MD Abs.Neutrophil (Seg) 19.89 k/uL High 1.8-7.7 [facility] Comment on above: Performed By: #### C DP #### [place] [address] Daycare Manager: Francisco J Fonseca MD Basophils/100 WBC (Bld) 0 % Normal 0-2 [facility] Comment on above: Performed By: #### C DP #### [address] [address] Daycare Manager: Francisco J Fonseca MD Eosinophils (Bld) [#/Vol] 0.00 10*3/uL Normal 0.0-0.4 [facility] Comment on above: Performed By: #### C DP #### [address] [address] Daycare Manager: Francisco J Fonseca MD Eosinophils/100 WBC (Bld) 0 % Low 1-4 [facility] Comment on above: Performed By: #### C DP #### [address] [address] Daycare Manager: Francisco J Fonseca MD Immature granulocytes/100 WBC (Bld) 0 % Normal 0 [facility] Comment on above: Performed By: #### C DP #### [address] [address] Daycare Manager: Francisco J Fonseca MD Lymphocytes (Bld) [#/Vol] 0.88 10*3/uL Low 1.0-4.8 [facility] Comment on above: Performed By: #### C DP #### [address] [address] Daycare Manager: Francisco J Fonseca MD Lymphocytes/100 WBC (Bld) 4 % Low 24-44 [facility] Comment on above: Performed By: #### C DP #### [address] [address] Daycare Manager: Francisco J Fonseca MD Monocytes (Bld) [#/Vol] 1.33 10*3/uL High 0.1-0.8 [facility] Comment on above: Performed By: #### C DP #### [address] [address] Daycare Manager: Francisco J Fonseca MD Monocytes/100 WBC (Bld) 6 % Normal 1-7 [facility] Comment on above: Performed By: #### C DP #### [address] [address] Daycare Manager: Francisco J Fonseca MD Morphology Walter (Bld) [Interp] MICROCYTOSIS PRESENT Normal [facility] Comment on above: Result Comment: ANIS OCYTOSIS PRESENT 1+ ACANTHOCYTES Performed By: #### C DP #### [address] [address] Daycare Manager: Francisco J Fonseca MD Neutrophil (Seg) 90 % High 36-66 [facility] Comment on above: Performed By: #### C DP #### [address] [address] Daycare Manager: Francisco J Fonseca MD Erythrocyte distribution width (RBC) [Ratio] 18.9 % High 11.8-14.4 [facility] Comment on above: Performed By: #### C DP #### [address] [address] Daycare Manager: Francisco J Fonseca MD Hematocrit (Bld) [Volume fraction] 37.4 % Low 40.7-50.3 [facility] Comment on above: Performed By: #### C DP #### [address] [address] Daycare Manager: Francisco J Fonseca MD Hemoglobin (Bld) [Mass/Vol] 12.2 g/dL Low 13.0-17.0 [facility] Comment on above: Performed By: #### C DP #### [address] [address] Daycare Manager: Francisco J Fonseca MD MCH (RBC) [Entitic mass] 26.9 pg Normal 25.2-33.5 [facility] Comment on above: Performed By: #### C DP #### [address] [address] Daycare Manager: Francisco J Fonseca MD MCHC (RBC) [Mass/Vol] 32.6 g/dL Normal 28.4-34.8 [facility] Comment on above: Performed By: #### C DP #### [address] [address] Daycare Manager: Francisco J Fonseca MD MCV (RBC) [Entitic vol] 82.4 fL Low 82.6-102.9 [facility] Comment on above: Performed By: #### C DP #### [address] [address] Daycare Manager: Francisco J Fonseca MD NRBC Automated 0.0 per 100 WBC Normal 0.0 [facility] Comment on above: Performed By: #### C DP #### [address] [address] Daycare Manager: Francisco J Fonseca MD Platelet mean volume (Bld) [Entitic vol] 12.6 fL Normal 8.1-13.5 [facility] Comment on above: Performed By: #### C DP #### [address] [address] Daycare Manager: Francisco J Fonseca MD Platelets (Bld) [#/Vol] 292 10*3/uL Normal 138-453 [facility] Comment on above: Performed By: #### C DP #### [address] [address] Daycare Manager: Francisco J Fonseca MD RBC (Bld) [#/Vol] 4.54 10*6/uL Normal 4.21-5.77 [facility] Comment on above: Performed By: #### C DP #### [address] [address] Daycare Manager: Francisco J Fonseca MD WBC (Bld) [#/Vol] 22.1 10*3/uL High 3.5-11.3 [facility] Comment on above: Performed By: #### C DP #### [facility] [address] [place], [place] [id number] Daycare Manager: Francisco J Fonseca MD Hemoglobin A1Con 5662 Glucose [Mass/Vol] 223 mg/dL Normal [facility] Comment on above: Result Comment: The ADA and AACC recommend providing the estimated average glucose result to permit better patient understanding of their HBA1c result. Performed By: #### C DP, MELVIN, BMPX, IPF #### [facility] [place], [place] [id number] Daycare Manager: Francisco J Fonseca MD HbA1c (Bld) [Mass fraction] 9.4 % High 4.0-6.0 [facility] Comment on above: Performed By: #### C DP, MELVIN, BMPX, IPF #### [employer] [facility] [place] [address] Daycare Manager: Francisco J Fonseca MD Laboratory - Chemistry and C hemistry - challengeon 5 Anion gap [Moles/Vol] 12 mmol/L 9 - 17 mmol/L [facility] [employer] Calcium [Mass/Vol] 8.3 mg/dL Low 8.6 - 10. 4 mg/dL [facility] Chloride [Moles/Vol] 102 mmol/L 98 - 10 7 mmol/L [employer] [facility] CO2 [Moles/Vol] 21 mmol/L 20 - 31 mmol/L [facility] Creatinine [Mass/Vol] 0.88 mg/dL 0.70 - 1.20 mg/dL [facility] [employer] GFR/1.73 sq M.predicted MDRD (S/P/Bld) [Vol rate/Area] [facility] Comment on above: Average GFR for 70 o r more years old: 75 mL/min/1.73sq m Chronic Kidney Disease: <60 mL/min/1.73sq m Kidney failure: <15 mL/min/1.73sq m eGFR calculated using average adult body mass. Additional eGFR calculator available at: http://www.[employer]/multiple_crcl_2012.htm Glucose [Mass/Vol] 74 mg/dL 70 - 99 mg/dL [facility] Phosphate [Mass/Vol] 3.3 mg/dL 2.5 - 4 .5 mg/dL [facility] Potassium [Moles/Vol] 4.2 mmol/L 3.7 - 5.3 mmol/L [facility] Sodium [Moles/Vol] 135 mmol/L 135 - 144 mmol/L [facility] Urea nitrogen (BldV) [Mass/Vol] 29 mg/dL High 8 - 23 mg/dL [facility] Glucose [Mass/Vol] 69 mg/dL Low 75 - 110 mg/dL [facility] Glucose [Mass/Vol] 93 mg/dL 75 - 110 mg/dL [facility] Glucose [Mass/Vol] 55 mg/dL Low 75 - 110 mg/dL [facility] Comment on above: Critical Noted Glucose [Mass/Vol] 88 mg/dL 75 - 110 mg/dL [facility] Anion gap [Moles/Vol] 12 mmol/L 9 - 17 mmol/L [facility] Calcium [Mass/Vol] 8.4 mg/dL Low 8.6 - 10. 4 mg/dL [facility] Chloride [Moles/Vol] 103 mmol/L 98 - 10 7 mmol/L [facility] CO2 [Moles/Vol] 21 mmol/L 20 - 31 mmol/L [facility] Creatinine [Mass/Vol] 0.93 mg/dL 0.70 - 1.20 mg/dL [facility] GFR/1.73 sq M.predicted MDRD (S/P/Bld) [Vol rate/Area] [facility] Comment on above: Average GFR for 70 o r more years old: 75 mL/min/1.73sq m Chronic Kidney Disease: <60 mL/min/1.73sq m Kidney failure: <15 mL/min/1.73sq m eGFR calculated using average adult body mass. Additional eGFR calculator available at: http://www.Health Elements/multiple_crcl_2012.htm Glucose [Mass/Vol] 155 mg/dL High 70 - 99 mg/dL [facility] Phosphate [Mass/Vol] 2.9 mg/dL 2.5 - 4 .5 mg/dL [facility] Potassium [Moles/Vol] 3.9 mmol/L 3.7 - 5.3 mmol/L [facility] Sodium [Moles/Vol] 136 mmol/L 135 - 144 mmol/L [facility] Urea nitrogen (BldV) [Mass/Vol] 28 mg/dL High 8 - 23 mg/dL [facility] Glucose [Mass/Vol] 152 mg/dL High 75 - 110 mg/dL [facility] Glucose [Mass/Vol] 216 mg/dL High 75 - 110 mg/dL [facility] Glucose [Mass/Vol] 242 mg/dL High 75 - 110 mg/dL [facility] Glucose [Mass/Vol] 243 mg/dL High 75 - 110 mg/dL [facility] Anion gap [Moles/Vol] 11 mmol/L 9 - 17 mmol/L [facility] Calcium [Mass/Vol] 8.4 mg/dL Low 8.6 - 10. 4 mg/dL [facility] Chloride [Moles/Vol] 103 mmol/L 98 - 10 7 mmol/L [facility] CO2 [Moles/Vol] 24 mmol/L 20 - 31 mmol/L [facility] Creatinine [Mass/Vol] 0.92 mg/dL 0.70 - 1.20 mg/dL [facility] GFR/1.73 sq M.predicted MDRD (S/P/Bld) [Vol rate/Area] [facility] Comment on above: Average GFR for 70 o r more years old: 75 mL/min/1.73sq m Chronic Kidney Disease: <60 mL/min/1.73sq m Kidney failure: <15 mL/min/1.73sq m eGFR calculated using average adult body mass. Additional eGFR calculator available at: http://www.Health Elements/multiple_crcl_2012.htm Glucose [Mass/Vol] 226 mg/dL High 70 - 99 mg/dL [facility] Phosphate [Mass/Vol] 3.5 mg/dL 2.5 - 4 .5 mg/dL [facility] Potassium [Moles/Vol] 5.0 mmol/L 3.7 - 5.3 mmol/L [facility] Sodium [Moles/Vol] 138 mmol/L 135 - 144 mmol/L [facility] Urea nitrogen (BldV) [Mass/Vol] 26 mg/dL High 8 - 23 mg/dL [facility] Glucose [Mass/Vol] 214 mg/dL High 75 - 110 mg/dL [facility] Anion gap [Moles/Vol] 13 mmol/L 9 - 17 mmol/L [facility] Calcium [Mass/Vol] 8.4 mg/dL Low 8.6 - 10. 4 mg/dL [facility] Chloride [Moles/Vol] 104 mmol/L 98 - 10 7 mmol/L [facility] CO2 [Moles/Vol] 21 mmol/L 20 - 31 mmol/L [facility] Creatinine [Mass/Vol] 0.84 mg/dL 0.70 - 1.20 mg/dL [facility] GFR/1.73 sq M.predicted MDRD (S/P/Bld) [Vol rate/Area] [facility] Comment on above: Average GFR for 70 o r more years old: 75 mL/min/1.73sq m Chronic Kidney Disease: <60 mL/min/1.73sq m Kidney failure: <15 mL/min/1.73sq m eGFR calculated using average adult body mass. Additional eGFR calculator available at: http://www.[employer] Elements/multiple_crcl_2012.htm Glucose [Mass/Vol] 176 mg/dL High 70 - 99 mg/dL [facility] Phosphate [Mass/Vol] 3.1 mg/dL 2.5 - 4 .5 mg/dL [facility] Potassium [Moles/Vol] 4.5 mmol/L 3.7 - 5.3 mmol/L [facility] Sodium [Moles/Vol] 138 mmol/L 135 - 144 mmol/L [facility] Urea nitrogen (BldV) [Mass/Vol] 21 mg/dL 8 - 23 mg/dL [facility] Glucose [Mass/Vol] 126 mg/dL High 75 - 110 mg/dL [facility] Glucose [Mass/Vol] 165 mg/dL High 75 - 110 mg/dL [facility] Glucose [Mass/Vol] 142 mg/dL High 75 - 110 mg/dL [facility] Glucose [Mass/Vol] 89 mg/dL 75 - 110 mg/dL [facility] Glucose [Mass/Vol] 71 mg/dL Low 75 - 110 mg/dL [facility] Glucose [Mass/Vol] 82 mg/dL 75 - 110 mg/dL [facility] Glucose [Mass/Vol] 128 mg/dL High 75 - 110 mg/dL [facility] Anion gap [Moles/Vol] 6 mmol/L Low 9 - 17 mmol/L [facility] Calcium [Mass/Vol] 8.5 mg/dL Low 8.6 - 10. 4 mg/dL [facility] Chloride [Moles/Vol] 105 mmol/L 98 - 10 7 mmol/L [facility] CO2 [Moles/Vol] 25 mmol/L 20 - 31 mmol/L [facility] Creatinine [Mass/Vol] 0.75 mg/dL 0.70 - 1.20 mg/dL [facility] GFR/1.73 sq M.predicted MDRD (S/P/Bld) [Vol rate/Area] [facility] Comment on above: Average GFR for 70 o r more years old: 75 mL/min/1.73sq m Chronic Kidney Disease: <60 mL/min/1.73sq m Kidney failure: <15 mL/min/1.73sq m eGFR calculated using average adult body mass. Additional eGFR calculator available at: http://www.[employer] Elements/multiple_crcl_2012.htm Glucose [Mass/Vol] 81 mg/dL 70 - 99 mg/dL [facility] Phosphate [Mass/Vol] 2.5 mg/dL 2.5 - 4 .5 mg/dL [facility] Potassium [Moles/Vol] 4.6 mmol/L 3.7 - 5.3 mmol/L [facility] Sodium [Moles/Vol] 136 mmol/L 135 - 144 mmol/L [facility] Urea nitrogen (BldV) [Mass/Vol] 18 mg/dL 8 - 23 mg/dL [facility] Glucose [Mass/Vol] 187 mg/dL High 75 - 110 mg/dL [facility] Laboratory - Hematology and Cell countson 01-03-2022 Basophils (Bld) [#/Vol] 0.00 10*3/uL [facility] Basophils/100 WBC (Bld) 0 % 0 - 2 % [facility] Eosinophils/100 WBC (Bld) 0 % Low 1 - 4 % [facility] Hematocrit (Bld) [Volume fraction] 37.4 % Low 40.7 - 50.3 % [facility] Hemoglobin (Bld) [Mass/Vol] 12.2 g/dL Low 13.0 - 17.0 g/dL [facility] Immature granulocytes/100 WBC (Bld) 0 % 0 [facility] Lymphocytes/100 WBC (Bld) 4 % Low 24 - 44 % [facility] MCH (RBC) [Entitic mass] 26.9 pg 25.2 - 33.5 pg [facility] MCHC (RBC) [Mass/Vol] 32.6 g/dL 28.4 - 34.8 g/dL [facility] MCV (RBC) [Entitic vol] 82.4 fL Low 82.6 - 102.9 fL [facility] Monocytes/100 WBC (Bld) 6 % 1 - 7 % [facility] Morphology Walter (Bld) [Interp] MICROCYTOSIS PRESENT [facility] Morphology Walter (Bld) [Interp] ANISOCYTOSIS PRESENT [facility] Morphology Walter (Bld) [Interp] 1+ ACANTHOCYTES [facility] Platelet distribution width (Bld) [Ratio] 18.9 % High 11.8 - 14.4 % [facility] Platelet mean volume (Bld) [Entitic vol] 12.6 [...] Low [facility] Absolute Gila # 1.33 High [facility] [...] results Abnormal [facility] Interpretation and review of laboratory results Abnormal [facility] Phosphorus, Inorg.on 022 Phosphorus, Inorg. 3.3 mg/dL Normal 2.5-4.5 [facility] Comment on above: Performed By: #### C DP, MELIVN, BMPX, IPF #### [employer] [address] [place] [id number] Daycare Manager: Francisco J Fonseca MD Phosphorus, Inorg. 2.9 mg/dL Normal 2.5-4.5 [facility] Comment on above: Performed By: #### C DP #### [employer] [address] [place] [address] Daycare Manager: Francisco J Fonseca MD Phosphorus, Inorg. 3.5 mg/dL Normal 2.5-4.5 [facility] Comment on above: Performed By: #### C DP, MELVIN, BMPX, IPF #### [employer] [address] [place] [phone] Daycare Manager: Francisco J Fonseca MD Phosphorus, Inorg. 3.1 mg/dL Normal 2.5-4.5 [facility] Comment on above: Performed By: #### C DP, MELVIN, BMPX, IPF #### [employer] [address] [place], [place] [id number] Daycare Manager: Francisco J Fonseca MD Phosphorus, Inorg. 2.5 mg/dL Normal 2.5-4.5 [facility] Comment on above: Performed By: #### C DP, MELVIN, BMPX, IPF #### [address] [id number] Daycare Manager: Francisco J Fonseca MD XR ABDOMEN FOR [...] Eulogio Winslow MD 01/02/22 Final result Normal [facility] AMYLASEon 01-02-2022 Amylase [Catalytic activity/Vol] 13 U/L Critically low 25-115 [facility] Comment on above: Performed By: #### L IPA, MARGA, LIVER, BMP #### [facility] [address] [address] [address] Kylee Bunch Basic Metabolic Profon 01-02 Glucose [Mass/Vol] 452 mg/dL Critically high 70-99 [facility] Comment on above: Performed By: #### C DP #### [address] [id number] Daycare Manager: Francisco J Fonseca MD (cont.) Normal [facility] Comment on above: Result Comment: Aver age GFR for 70 or more years old: 75 mL/min/1.73sq m Chronic Kidney Disease: <60 mL/min/1.73sq m Kidney failure: <15 mL/min/1.73sq m eGFR calculated using average adult body mass. Additional eGFR calculator available at: http://www.[employer].Sealed/multiple_crcl_2012.htm Performed By: #### C DP #### [address] [address] Daycare Manager: Francisco J Fonseca MD Anion gap [Moles/Vol] 12 mmol/L Normal 9-17 [facility] Comment on above: Performed By: #### C DP #### [address] [address] Daycare Manager: Francisco J Fonseca MD Calcium [Mass/Vol] 8.6 mg/dL Normal 8.6-10.4 [facility] Comment on above: Performed By: #### C DP #### [address] [address] Daycare Manager: Francisco J Fonseca MD Chloride [Moles/Vol] 96 mmol/L Low 98-107 [facility] Comment on above: Performed By: #### C DP #### [address] [address] Daycare Manager: Francisco J Fonseca MD CO2 [Moles/Vol] 22 mmol/L Normal 20-31 [facility] Comment on above: Performed By: #### C DP #### [address] [address] Daycare Manager: Francisco J Fonseca MD Creatinine [Mass/Vol] 0.81 mg/dL Normal 0.70-1.20 [facility] Comment on above: Performed By: #### C DP #### [address] [address] Daycare Manager: Francisco J Fonseca MD GFR, Amer >60 Normal >60 [facility] Comment on above: Performed By: #### C DP #### [address] [address] Daycare Manager: Francisco J Fonseca MD GFR,non Amer >60 Normal >60 [facility] Comment on above: Performed By: #### C DP #### [address] [address] Daycare Manager: Francisco J Fonseca MD Potassium [Moles/Vol] 4.1 mmol/L Normal 3.7-5.3 [facility] Comment on above: Performed By: #### C DP #### [address] [address] Daycare Manager: Francisco J Fonseca MD Sodium [Moles/Vol] 130 mmol/L Low 135-144 [facility] Comment on above: Performed By: #### C DP #### [address] [address] Daycare Manager: Francisco J Fonseca MD Urea nitrogen [Mass/Vol] 19 mg/dL Normal 8-23 [facility] Comment on above: Performed By: #### C DP #### [address] [address] Daycare Manager: Francisco J Fonseca MD CBC AUTO DIFFon 01-02-2022 BASO # 0.0 103/ul Normal 0.0-0.1 [facility] Comment on above: Performed By: #### C MP, LIPID #### [facility] [address] [place] [address] Dr. Kylee Bunch Basophils/100 WBC (Bld) 0.2 % Normal 0.2-2.0 [facility] Comment on above: Performed By: #### C MP, LIPID #### [facility] [address] [address] [address] Kylee Bunch EO # 0.1 103/ul Normal 0.0-0.7 [facility] Comment on above: Performed By: #### C MP, LIPID #### [facility] [address] [place] [address] Dr. Kylee Bunch Eosinophils/100 WBC (Bld) 0.5 % Critically low 0.9-7.0 [facility] Comment on above: Performed By: #### C MP, LIPID #### [facility] [address] [place] [address] Dr. Kylee Bunch Erythrocyte distribution width (RBC) [Ratio] 18.5 % Critically high 11.0-15.0 [facility] Comment on above: Performed By: #### C MP, LIPID #### [facility] [address] [place] [address] Dr. Kylee Bunch Hematocrit (Bld) [Volume fraction] 37.0 % Critically low 42.0-54.0 [facility] Comment on above: Performed By: #### C MP, LIPID #### [facility] [address] [place] [address] Dr. Kylee Bunch Hemoglobin (Bld) [Mass/Vol] 12.6 g/dL Critically low 14.0-18.0 [facility] Comment on above: Performed By: #### C MP, LIPID #### [facility] [address] [place] [address] Dr. Kylee Bunch IG # 0.02 10e3/ul Normal 0.00-0.03 [facility] Comment on above: Performed By: #### C MP, LIPID #### [facility] [address] [place] [address] Dr. Kylee Bunch IG % 0.2 % Normal 0.0-0.5 [facility] Comment on above: Performed By: #### C MP, LIPID #### [facility] [address] [place] [address] Dr. Kylee Bunch LYMPH # 1.2 103/ul Normal 1.2-3.8 [facility] Comment on above: Performed By: #### C MP, LIPID #### [facility] [address] [place] [address] Dr. Kylee Bunch Lymphocytes/100 WBC (Bld) 11.3 % Critically low 20.5-60.0 [facility] Comment on above: Performed By: #### C MP, LIPID #### [facility] [address] [place] [address] Dr. Kylee Bunch MANUAL DIFF REQ NO Normal [facility] Comment on above: Performed By: #### C MP, LIPID #### [facility] [address] [place] [address] Dr. Kylee Bunch MCH (RBC) [Entitic mass] 27.1 pg Normal 25.9-34.0 [facility] Comment on above: Performed By: #### C MP, LIPID #### [facility] [address] [place] [address] Dr. Kylee Bunch MCHC (RBC) [Mass/Vol] 34.1 g/dL Normal 29.9-35.2 [facility] Comment on above: Performed By: #### C MP, LIPID #### [facility] [address] [place] [address] Dr. Kylee Bunch MCV (RBC) [Entitic vol] 79.6 fL Critically low 80.0-94.0 [facility] Comment on above: Performed By: #### C MP, LIPID #### [facility] [address] [place] [address] Dr. Kylee Bunch MONO # 0.5 103/ul Normal 0.3-0.8 [facility] Comment on above: Performed By: #### C MP, LIPID #### [facility] [address] [place] [address] Dr. Kylee Bunch Monocytes/100 WBC (Bld) 4.5 % Normal 1.7-12.0 [facility] Comment on above: Performed By: #### C MP, LIPID #### [facility] [address] [place] [address] Dr. Kylee Bunch NEUT # 8.5 103/ul Critically high 1.4-6.5 [facility] Comment on above: Performed By: #### C MP, LIPID #### [facility] [address] [place] [address] Dr. Kylee Bunch Neutrophils/100 WBC (Bld) 83.3 % Critically high 43.0-75.0 [facility] Comment on above: Performed By: #### C MP, LIPID #### [facility] [address] [place], [place] [address] Dr. Kylee Bunch Platelet mean volume (Bld) [Entitic vol] 12.6 fL Normal 9.5-13.5 [facility] Comment on above: Performed By: #### C MP, LIPID #### [facility] [address] [address] [address] Kylee Bunch PLT 335 103/ul Normal 150-450 [facility] Comment on above: Performed By: #### C MP, LIPID #### [facility] [address] [address] [address] Kylee Bunch RBC 4.65 106/ul Critically low 4.70-6.10 [facility] Comment on above: Performed By: #### C MP, LIPID #### [facility] [address] [address] [address] Kylee Bunch WBC 10.2 103/ul Normal 4.0-11.0 [facility] Comment on above: Performed By: #### C MP, LIPID #### [facility] [address] [place], [place] [id number] Dr. Kylee Bunch CBC with Diffon 01-02-2022 Abs. Basophil 0.00 k/uL Normal 0.00-0.20 [facility] Comment on above: Performed By: #### C DP, MELVIN, BMPX, IPF #### [employer] [address] [place] [id number] Daycare Manager: Francisco J Fonseca MD Abs.Imm.Granulocyte 0.00 k/uL Normal 0.00-0.30 [facility] Comment on above: Performed By: #### C DP, MELVIN, BMPX, IPF #### [facility] [address] [place] [id number] Daycare Manager: Francisco J Fonseca MD Abs.Neutrophil (Seg) 19.47 k/uL High 1.50-8.10 [facility] Comment on above: Performed By: #### C DP, MELVIN, BMPX, IPF #### [place] [address] Daycare Manager: Francisco J Fonseca MD Basophils/100 WBC (Bld) 0 % Normal 0-2 [facility] Comment on above: Performed By: #### C DP, MELVIN, BMPX, IPF #### [place] [address] Daycare Manager: Francisco J Fonseca MD Eosinophils (Bld) [#/Vol] 0.00 10*3/uL Normal 0.00-0.44 [facility] Comment on above: Performed By: #### C DP, MELVIN, BMPX, IPF #### [place] [address] Daycare Manager: Francisco J Fonseca MD Eosinophils/100 WBC (Bld) 0 % Low 1-4 [facility] Comment on above: Performed By: #### C DP, MELVIN, BMPX, IPF #### [place] [address] Daycare Manager: Francisco J Fonseca MD Immature granulocytes/100 WBC (Bld) 0 % Normal 0 [facility] Comment on above: Performed By: #### C DP, MELVIN, BMPX, IPF #### [place] [address] Daycare Manager: Francisco J Fonseca MD Lymphocytes (Bld) [#/Vol] 0.41 10*3/uL Low 1.10-3.70 [facility] Comment on above: Performed By: #### C DP, MELVIN, BMPX, IPF #### [place] [address] Daycare Manager: Francisco J Fonseca MD Lymphocytes/100 WBC (Bld) 2 % Low 24-43 [facility] Comment on above: Performed By: #### C DP, MELVIN, BMPX, IPF #### [address] [address] Daycare Manager: Francisco J Fonseca MD Monocytes (Bld) [#/Vol] 0.62 10*3/uL Normal 0.10-1.20 [facility] Comment on above: Performed By: #### C DP, MELVIN, BMPX, IPF #### [place] [address] Daycare Manager: Francisco J Fonseca MD Monocytes/100 WBC (Bld) 3 % Normal 3-12 [facility] Comment on above: Performed By: #### C DP, MELVIN, BMPX, IPF #### [place] [address] Daycare Manager: Francisco J Fonseca MD Morphology Walter (Bld) [Interp] ANISOCYTOSIS PRESENT Normal [facility] Comment on above: Performed By: #### C DP, MELVIN, BMPX, IPF #### [place] [address] Daycare Manager: Francisco J Fonseca MD Neutrophil (Seg) 95 % High 36-65 [facility] Comment on above: Performed By: #### C DP, MELVIN, BMPX, IPF #### [place] [address] Daycare Manager: Francisco J Fonseca MD Erythrocyte distribution width (RBC) [Ratio] 18.3 % High 11.8-14.4 [facility] Comment on above: Performed By: #### C DP, MELVIN, BMPX, IPF #### [facility] [employer] [address] [place] [address] Daycare Manager: Francisco J Fonseca MD Hematocrit (Bld) [Volume fraction] 38.9 % Low 40.7-50.3 [facility] Comment on above: Performed By: #### C DP, MELVIN, BMPX, IPF #### [address] [address] Daycare Manager: Francisco J Fonseca MD Hemoglobin (Bld) [Mass/Vol] 12.9 g/dL Low 13.0-17.0 [facility] Comment on above: Performed By: #### C DP, MELVIN, BMPX, IPF #### [address] [address] Daycare Manager: Francisco J Fonseca MD MCH (RBC) [Entitic mass] 26.9 pg Normal 25.2-33.5 [facility] Comment on above: Performed By: #### C DP, MELVIN, BMPX, IPF #### [address] [address] Daycare Manager: Francisco J Fonseca MD MCHC (RBC) [Mass/Vol] 33.2 g/dL Normal 28.4-34.8 [facility] Comment on above: Performed By: #### C DP, MELVIN, BMPX, IPF #### [place] [address] Daycare Manager: Francisco J Fonseca MD MCV (RBC) [Entitic vol] 81.2 fL Low 82.6-102.9 [facility] Comment on above: Performed By: #### C DP, MELVIN, BMPX, IPF #### [place] [address] Daycare Manager: Francisco J Fonseca MD NRBC Automated 0.0 per 100 WBC Normal 0.0 [facility] Comment on above: Performed By: #### C DP, MELVIN, BMPX, IPF #### [place] [address] Daycare Manager: Francisco J Fonseca MD Platelet mean volume (Bld) [Entitic vol] 12.4 fL Normal 8.1-13.5 [facility] Comment on above: Performed By: #### C DP, MELVIN, BMPX, IPF #### [facility] [place] [address] Daycare Manager: Francisco J Fonseca MD Platelets (Bld) [#/Vol] 324 10*3/uL Normal 138-453 [facility] Comment on above: Performed By: #### C DP, MELVIN, BMPX, IPF #### [facility] [address] [place] [address] Daycare Manager: Francisco J Fonseca MD RBC (Bld) [#/Vol] 4.79 10*6/uL Normal 4.21-5.77 [facility] Comment on above: Performed By: #### C DP, MELVIN, BMPX, IPF #### [facility] [employer] [address] [place] [address] Daycare Manager: Francisco J Fonseca MD WBC (Bld) [#/Vol] 20.5 10*3/uL High 3.5-11.3 [facility] Comment on above: Performed By: #### C DP, MELVIN, BMPX, IPF #### [facility] [address] [place] [address] Daycare Manager: Francisco J Fonseca MD CT ABD/PELV W [...] identified. Background diffuse body wall edema with [id number] volume of abdominal and pelvic ascites noted. [...] ROLA HOLCOMB Date: 2022-01-02 09:27 Normal [facility] Covid-19 PCR (CVDTB)on 12-11 SARS-CoV-2 (COVID-19) RNA ANASTASIA+probe Ql (Unsp spec) Not detected Normal NOT DETECTED [facility] Comment on above: Result Comment: When diagnostic [...] for this test is supported by the [employer] of Health and Human Service's declaration that [...] used). Performed By: #### C VDTB #### [facility] [address] [place] [id number] [address] Kylee JACK URINE PROFILEon 2 Bilirubin Ql (U) Negative Normal NEGATIVE [facility] Comment on above: Performed By: #### C MP, LIPID #### [facility] [address] [place] [address] Dr. Kylee Bunch Clarity (U) CLEAR Normal CLEAR [facility] Comment on above: Performed By: #### C MP, LIPID #### [facility] [address] [place] [address] Dr. Kylee Bunch Color (U) LT. YELLOW Normal YELLOW [facility] Comment on above: Performed By: #### C MP, LIPID #### [facility] [address] [place] [address] Dr. Kylee Bunch ERUAHD A micrscopic examina tion will be performed if indicated. Normal [facility] Comment on above: Performed By: #### C MP, LIPID #### [facility] [address] [place] [address] Dr. Kylee Bunch Hemoglobin Ql (U) TRACE-INTACT Abnormal NEGATIVE [facility] Comment on above: Performed By: #### C MP, LIPID #### [facility] [address] [place] [address] Dr. Kylee Bunch Ketones Ql (U) 15 mg/dl Abnormal NEGATIVE [facility] Comment on above: Performed By: #### C MP, LIPID #### [facility] [address] [place] [address] Dr. Kylee Bunch LEUKOCYTES Negative Normal NEGATIVE [facility] Comment on above: Performed By: #### C MP, LIPID #### [facility] [address] [place] [address] Dr. Kylee Bunch Nitrite Ql (U) Negative Normal NEGATIVE [facility] Comment on above: Performed By: #### C MP, LIPID #### [facility] [address] [place] [address] Dr. Kyele Bunch pH (U) 5.5 [pH] Normal 5-9 [facility] Comment on above: Performed By: #### C MP, LIPID #### [facility] [address] [place] [address] Dr. Kylee Bunch SPEC GRAVITY 1.015 Normal 1.005-<=1. 025 [facility] Comment on above: Performed By: #### C MP, LIPID #### [facility] [address] [place] [address] Dr. Kylee Bunch UA PROTEIN Negative Normal NEGATIVE/ TRACE [facility] Comment on above: Performed By: #### C MP, LIPID #### [facility] [address] [address] [address] Kylee Bunch UR MICRO IND INDICATED Normal [facility] Comment on above: Performed By: #### C MP, LIPID #### [facility] [address] [place] [address] Dr. Kylee Bunch Urobilinogen Qn (U) 0.2 {Gemini'U}/dL Normal 0.2 - 1. 0 [facility] Comment on above: Performed By: #### C MP, LIPID #### [facility] [address] [place] [address] Dr. Kylee Bunch LIPASEon 01-02-2022 Lipase [Catalytic activity/Vol] 9.0 U/L Critically low 73.0-393.0 [facility] Comment on above: Performed By: #### L IPA, MARGA, LIVER, BMP #### [facility] [address] [place] [address] Dr. Kylee Bunch LIVER PROFILEon 01-02-2022 Albumin [Mass/Vol] 3.3 g/dL Critically low 3.4-5.0 [facility] Comment on above: Performed By: #### L IPA, MARGA, LIVER, BMP #### [facility] [address] [place] [address] Dr. Kylee Bunch Albumin/Globulin [Mass ratio] 0.9 {ratio} Normal [facility] Comment on above: Performed By: #### L IPA, MARGA, LIVER, BMP #### [facility] [address] [place] [address] Dr. Kylee Bunch ALP [Catalytic activity/Vol] 116 U/L Normal 46-116 [facility] Comment on above: Performed By: #### L IPA, MARGA, LIVER, BMP #### [facility] [address] [place] [address] Dr. Kylee Bunch ALT [Catalytic activity/Vol] 21 U/L Normal 16-63 [facility] Comment on above: Performed By: #### L IPA, MARGA, LIVER, BMP #### [facility] [address] [place] [address] Dr. Kylee Bunch AST [Catalytic activity/Vol] 24 U/L Normal 15-37 [facility] Comment on above: Performed By: #### L IPA, MARGA, LIVER, BMP #### [facility] [address] [place] [address] Dr. Kylee Bunch BILI, CONJUGATED 0.1 mg/dL Normal 0.0-0.2 [facility] Comment on above: Performed By: #### L IPA, MARGA, LIVER, BMP #### [facility] [address] [place] [address] Dr. Kylee Bunch Bilirubin [Mass/Vol] 0.6 mg/dL Normal 0.2-1.0 [facility] Comment on above: Performed By: #### L IPA, MARGA, LIVER, BMP #### [facility] [address] [place] [address] Dr. Kylee Bunch Globulin (S) [Mass/Vol] 3.6 g/dL Normal [facility] Comment on above: Performed By: #### L IPA, MARGA, LIVER, BMP #### [facility] [address] [place] [address] Dr. Kylee Bunch Protein [Mass/Vol] 6.9 g/dL Normal 6.4-8.2 [facility] Comment on above: Performed By: #### L IPA, MARGA, LIVER, BMP #### [facility] [address] [place] [address] Dr. Kylee Bunch Laboratory - Chemistry and C hemistry - challengeon 01-02-2022 Glucose [Mass/Vol] 223 mg/dL [facility] Comment on above: The ADA and AACC rec ommend providing the estimated average glucose result to permit better patient understanding of their HBA1c result. Glucose [Mass/Vol] 227 mg/dL High 75 - 110 mg/dL [facility] Glucose [Mass/Vol] 290 mg/dL High 75 - 110 mg/dL [facility] Glucose [Mass/Vol] 300 mg/dL High 75 - 110 mg/dL [facility] Glucose [Mass/Vol] 323 mg/dL High 75 - 110 mg/dL [facility] Anion gap [Moles/Vol] 12 mmol/L 9 - 17 mmol/L [facility] Calcium [Mass/Vol] 8.6 mg/dL 8.6 - 10. 4 mg/dL [facility] Chloride [Moles/Vol] 96 mmol/L Low 98 - 10 7 mmol/L [facility] CO2 [Moles/Vol] 22 mmol/L 20 - 31 mmol/L [facility] Creatinine [Mass/Vol] 0.81 mg/dL 0.70 - 1.20 mg/dL [facility] GFR/1.73 sq M.predicted MDRD (S/P/Bld) [Vol rate/Area] [facility] Comment on above: Average GFR for 70 o r more years old: 75 mL/min/1.73sq m Chronic Kidney Disease: <60 mL/min/1.73sq m Kidney failure: <15 mL/min/1.73sq m eGFR calculated using average adult body mass. Additional eGFR calculator available at: http://www.[employer]/multiple_crcl_2011.htm Glucose [Mass/Vol] 452 mg/dL Critically high 70 - 9 9 mg/dL [facility] Potassium [Moles/Vol] 4.1 mmol/L 3.7 - 5.3 mmol/L [facility] Sodium [Moles/Vol] 130 mmol/L Low 135 - 144 mmol/L [facility] Urea nitrogen (BldV) [Mass/Vol] 19 mg/dL 8 - 23 mg/dL [facility] Albumin [Mass/Vol] 3.6 g/dL 3.5 - 5.2 g/dL [facility] Albumin/Globulin [Mass ratio] 1.3 {ratio} [facility] ALP (Bld) [Catalytic activity/Vol] 100 U/L 40 - 129 U/L [facility] ALT [Catalytic activity/Vol] 15 U/L 5 - 41 U/L [facility] AST [Catalytic activity/Vol] 18 U/L <40 [facility] Bilirubin [Mass/Vol] 0.45 mg/dL 0.3 - 1 .2 mg/dL [facility] Bilirubin.indirect [Mass/Vol] 0.17 mg/dL <0.31 [facility] Free PSA/Total PSA [Mass fraction] 6.4 g/dL 6.4 - 8.3 g/dL [facility] Glucose [Mass/Vol] 433 mg/dL Critically high 75 - 1 10 mg/dL [facility] Comment on above: Critical Noted Laboratory - Coagulationon 0 01-02-2022 INR Coag (Bld) [Relative time] 1.2 {INR} [facility] Comment on above: Therapeutic Range: Moderate Anticoagulant Intensity: INR = 2.0-3.0 High Anticoagulant Intensity: INR = 2.5-3.5 PT Coag (PPP) [Time] 12.5 s High [facility] Laboratory - Hematology and Cell countson 01-02-2022 HbA1c (Bld) [Mass fraction] 9.4 % High 4.0 - 6.0 % [facility] Basophils (Bld) [#/Vol] 0.00 10*3/uL [facility] Basophils/100 WBC (Bld) 0 % 0 - 2 % [facility] Eosinophils/100 WBC (Bld) 0 % Low 1 - 4 % [facility] Hematocrit (Bld) [Volume fraction] 38.9 % Low 40.7 - 50.3 % [facility] Hemoglobin (Bld) [Mass/Vol] 12.9 g/dL Low 13.0 - 17.0 g/dL [facility] Immature granulocytes/100 WBC (Bld) 0 % 0 [facility] Lymphocytes/100 WBC (Bld) 2 % Low 24 - 43 % [facility] MCH (RBC) [Entitic mass] 26.9 pg 25.2 - 33.5 pg [facility] MCHC (RBC) [Mass/Vol] 33.2 g/dL 28.4 - 34.8 g/dL [facility] MCV (RBC) [Entitic vol] 81.2 fL Low 82.6 - 102.9 fL [facility] Monocytes/100 WBC (Bld) 3 % 3 - 12 % [facility] Morphology Walter (Bld) [Interp] ANISOCYTOSIS PRESENT [facility] Platelet distribution width (Bld) [Ratio] 18.3 % High 11.8 - 14.4 % [facility] Platelet mean volume (Bld) [Entitic vol] 12.4 fL 8.1 - 13.5 fL [facility] Platelets (Bld) [#/Vol] 324 10*3/uL [facility] RBC (Bld) [#/Vol] 4.79 10*6/uL 4.21 - 5.77 m/uL [facility] Segmented neutrophils/100 WBC (Bld) 95 % High 36 - 65 % [facility] WBC (Bld) [#/Vol] 20.5 10*3/uL High [facility] Lactate, Sepsison 01-02-2022 Lactic Acid,Sep Wbld 1.7 mmol/L Normal 0.5-1.9 [facility] Comment on above: Performed By: #### C DP, MELVIN, BMPX, IPF #### [facility] [employer] [place] [address] Daycare Manager: Francisco J Fonseca MD Liver Profileon 8 Albumin [Mass/Vol] 3.6 g/dL Normal 3.5-5.2 [facility] Comment on above: Performed By: #### C DP #### [employer] [address] [place], [place] [id number] Daycare Manager: Francisco J Fonseca MD Albumin/Glob Ratio 1.3 Normal 1.0-2.5 [facility] Comment on above: Performed By: #### C DP #### [employer] [address] [place] [address] Daycare Manager: Francisco J Fonseca MD Alkaline Phos 100 U/L Normal 40-129 [facility] Comment on above: Performed By: #### C DP #### [employer] [address] [place] [address] Daycare Manager: Francisco J Fonseca MD ALT [Catalytic activity/Vol] 15 U/L Normal 5-41 [facility] Comment on above: Performed By: #### C DP #### [address] [address] Daycare Manager: Francisco J Fonseca MD AST [Catalytic activity/Vol] 18 U/L Normal <40 [facility] Comment on above: Performed By: #### C DP #### [address] [address] Daycare Manager: Francisco J Fonseca MD Bilirubin [Mass/Vol] 0.45 mg/dL Normal 0.3-1.2 [facility] Comment on above: Performed By: #### C DP #### [address] [address] Daycare Manager: Francisco J Fonseca MD Bilirubin, Indirect 0.28 mg/dL Normal 0.00-1.00 [facility] Comment on above: Performed By: #### C DP #### [address] [address] Daycare Manager: Francisco J Fonseca MD Bilirubin.indirect [Mass/Vol] 0.17 mg/dL Normal <0.31 [facility] Comment on above: Performed By: #### C DP #### [address] [address] Daycare Manager: Francisco J Fonseca MD Protein [Mass/Vol] 6.4 g/dL Normal 6.4-8.3 [facility] Comment on above: Performed By: #### C DP #### [address] [address] Daycare Manager: Francisco J Fonseca MD Panel Informationon 01-02 Interpretation and review of laboratory results Abnormal [facility] Interpretation and review of laboratory results Abnormal [facility] Enteric tube needs t o be advanced 10 cm. [facility] RIS CONSOLIDATED EXAMINATION: ONE SUPINE XRAY [...] to be advanced at least 10 cm. [facility] RIS CONSOLIDATED Eulogio Winslow MD - [...] tube needs to be advanced 10 cm. [facility] Work Phone: Interpretation and review of laboratory results Abnormal [facility] Interpretation and review of laboratory results Abnormal [facility] Radiology Study observation (narrative) [facility] Work Phone: Absolute Eos # 0.00 [facility] Absolute Immature Granulocyte 0.00 [facility] Absolute Lymph # 0.41 [facility] Absolute Gila # 0.62 [facility] Interpretation and review of laboratory results Abnormal [facility] NRBC Automated 0.0 0.0 per 100 WBC [facility] Segs Absolute 19.47 High [facility] Interpretation and review of laboratory results Abnormal [facility] Interpretation and review of laboratory results Abnormal [facility] Lactic Acid, Sepsis, Whole Blood 1.7 mmol/L 0.5 - 1.9 mmol/L [facility] GFR >60 >60 mL/min [facility] GFR Non- >60 >60 mL/min [facility] Interpretation and review of laboratory results Abnormal [facility] Bilirubin, Indirect 0.28 mg/dL 0.00 - 1.00 mg/dL [facility] Interpretation and review of laboratory results Abnormal [facility] No Panel InformationOrdered By: Eulogio Winslow on 01-02-2022 [facility] [employer] Work Phone: POINT OF CARE GLUCOSEon 12-11 Glucose [Mass/Vol] 408 mg/dL Critically high 74-106 [facility] Comment on above: Performed By: #### P OCGLUC #### [facility] [address] [place] [address] Dr. Kylee Bunch PROF CHEM 8 (BAS METB)on Anion gap [Moles/Vol] 16.4 mmol/L Normal [facility] Comment on above: Performed By: #### L IPA, MARGA, LIVER, BMP #### [facility] [address] [address] [address] Kylee Bunch Calcium [Mass/Vol] 8.8 mg/dL Normal 8.5-10.1 [facility] Comment on above: Performed By: #### L IPA, MARGA, LIVER, BMP #### [facility] [address] [address] [address] Kylee Bunch Chloride [Moles/Vol] 96 mmol/L Critically low 98-107 [facility] Comment on above: Performed By: #### L IPA, MARGA, LIVER, BMP #### [facility] [address] [address] [address] Kylee Bunch CO2 [Moles/Vol] 25.1 mmol/L Normal 21.0-32.0 [facility] Comment on above: Performed By: #### L IPA, MARGA, LIVER, BMP #### [facility] [address] [address] [address] Kylee Bunch Creatinine [Mass/Vol] 1.22 mg/dL Normal 0.70-1.30 [facility] Comment on above: Performed By: #### L IPA, MARGA, LIVER, BMP #### [facility] [address] [address] [address] Kylee Bunch EGFR-AF MEXICAN >60 Normal >=60 [facility] Comment on above: Performed By: #### L IPA, MARGA, LIVER, BMP #### [facility] [address] [address] [address] Kylee Bunch EGFR-NON AF MEXICAN 57 mL/min/1.73m2 Critically low >=60 [facility] Comment on above: Performed By: #### L IPA, MARGA, LIVER, BMP #### [facility] [address] [place] [address] Dr. Kylee Bunch Glucose [Mass/Vol] 579 mg/dL Critically high 74-106 [facility] Comment on above: Result Comment: repe ated Performed By: #### L IPA, MARGA, LIVER, BMP #### [facility] [address] [place] [address] Dr. Kylee Bunch Potassium [Moles/Vol] 4.5 mmol/L Normal 3.5-5.1 [facility] Comment on above: Performed By: #### L IPA, MARGA, LIVER, BMP #### [facility] [address] [address] [address] Kylee Bunch Sodium [Moles/Vol] 133 mmol/L Critically low 136-145 [facility] Comment on above: Performed By: #### L IPA, MARGA, LIVER, BMP #### [facility] [address] [address] [address] Kylee Bunch Urea nitrogen [Mass/Vol] 19.0 mg/dL Critically high 7.0-18.0 [facility] Comment on above: Performed By: #### L IPA, MARGA, LIVER, BMP #### [facility] [address] [address] [address] Kylee Bunch Urea nitrogen/Creatinine [Mass ratio] 15.6 mg/mg Normal [facility] Comment on above: Performed By: #### L IPA, MARGA, LIVER, BMP #### [facility] [address] [address] [address] Kylee Bunch PTon 01-02-2022 INR Coag (PPP) [Relative time] 1.2 {INR} Normal [facility] Comment on above: Result Comment: Therapeutic Range: Moderate Anticoagulant Intensity: INR = 2.0-3.0 High Anticoagulant Intensity: INR = 2.5-3.5 Performed By: #### C DP, MELVIN, BMPX, IPF #### [address] [id number] Daycare Manager: Francisco J Fonseca MD PT Coag (PPP) [Time] 12.5 s High 9.1-12.3 [facility] Comment on above: Performed By: #### C DP, MELVIN, BMPX, IPF #### [address] [address] Daycare Manager: Francisco J Fonseca MD URINE MICROSCOPIC ONLYon BACTERIA NONE SEEN Normal NONE SEEN [facility] Comment on above: Performed By: #### C MP, LIPID #### [facility] [address] [place] [address] Dr. Kylee Bunch Bacteria identified Cx Nom (U) NOT INDICATED Normal [facility] Comment on above: Performed By: #### C MP, LIPID #### [facility] [address] [place] [address] Dr. Kylee Bunch CAST NONE SEEN Normal NONE SEEN [facility] Comment on above: Performed By: #### C MP, LIPID #### [facility] [address] [place] [address] Dr. Kylee Bunch Crystals LM Nom (Urine sed) NONE SEEN Normal NONE SEEN [facility] Comment on above: Performed By: #### C MP, LIPID #### [facility] [address] [address] [address] Kylee Bunch Epithelial cells LM Ql (Urine sed) RARE Normal NONE SEEN /RARE [facility] Comment on above: Performed By: #### C MP, LIPID #### [facility] [address] [address] [address] Kylee Bunch MUCOUS NONE SEEN Normal NONE SEEN [facility] Comment on above: Performed By: #### C MP, LIPID #### [facility] [address] [address] [address] Kylee Bunch RBC 0-2 Normal 0-2 [facility] Comment on above: Performed By: #### C MP, LIPID #### [facility] [address] [place] [address] Dr. Kylee Bunch WBC NONE SEEN Normal NONE SEEN [facility] Comment on above: Performed By: #### C MP, LIPID #### [facility] [address] [place] [address] Dr. Kylee Bunch Reminderson 06-21-2019 Reminders - [...] going to have another colonoscopy mlc Normal [facility] HOSPon 06-23-2018 HOSP Patient Update (GENSMN) ASHWINI VICKERS ([id number]) 1935 MDate Time Provider [id number]/13/18 MARIE JULIAN During your visit today, we recorded the following information about you:Allergies As of Date: 06/23/2018(No Known Allergies)Date Reviewed: 06/14/2018Reviewed by: Marie Julian - Fully AssessedReason for Visit: CURE 08/08/18 [Other]Primary Visit Diagnosis:Preoperative examination [Z01.818]Order(s):CONSULT TO [facility] [[id number]] Order #: [id number]: 1 TYPE + SCREEN,30 DAY [[id number]] Order #: [id number] FUTURE CONFIRM BLOOD TYPE [SQCONABO] Order #: [id number] FUTURE CBC + DIFF [SQCBCDIF] Order #: [id number] FUTURE COMP METABOLIC PANEL [SQCMP] Order #: [id number] FUTURE XR CHEST 2V FRONTAL/LAT [[id number]] Order #: [id number] FUTURE ECG COMPLETE W INTERPRETATION [ECG01] Order #: [id number] FUTURE REFER FOR ADMIT INTERVIEW [[id number]] Order #: [id number] CONSULT TO GERIATRICS [9012] Order #: [id number]: 1 CONSULT TO PATIENT EDUCATION [[id number]] Order #: [id number]: 1 NITISH WHAT TO EXPECT DURING YOUR HOSPITAL STAY [[id number]] Order #: [id number]: 1 NITISH PT ED GENERAL SURG [[id number]] Order #: [id number]: 1 NITISH PT ED MISC [[id number]] Order #: [id number]: 1 SURGICAL REQUEST - ELECTIVE [[id number]] Order #: [id number]: 1Prescriptions as of 06/23/2018 Sig: ASPIRIN 81 MG TABLET,DELAYED * Take 81 mg by mouth once parul* CETIRIZINE 10 MG TABLET Take 10 mg by mouth once parul* CHOLECALCIFEROL (VITAMIN D3) * Take 2,000 Units by mouth onc* CENTRUM SILVER ORAL Take by mouth once daily. PROBIOTIC-10 ORAL Take by mouth once daily. OUSJGR-ZBLVXVZG-BIARLGL 24,00* Take 2 capsules by mouth thre* LUTEIN-ZEAXANTHIN 25 MG-5 MG * Take by mouth once daily.Problem List As Of Date 06/23/2018 Noted Resolved IPMN (intraductal papillary mucinous neoplasm) *INVALID FOR* More...Follow-up and Disposition History RecordedEncounter Number: [id number] Status:Closed by BREANA FANG on 06/23/18 [facility] CNOVon 06-14-2018 CNOV Office Visit (GENMigdalia) ISIASHWINI PORRAS ([id number]) 1935 MDate Time Provider Uhedxsymdr72/4/18 9:30 AM MARIE JULIAN During your visit today, we recorded the following information about you: Temperature Pulse Blood pressure Weight 98.4 degrees 53/minute 182/84 70 kg Height 1.778 mMisty Lyonsyuli Aragon 06/14/2018 9:25 AM SignedWhat is the reason for your visit today? CONSULTWho is your referring physician? Dr. Castro.MarieAre you having poor oral intake? NOHave you had unintentional weight loss of 15 lbs/7 Kg in the last 3-6 months? NOBowels: regularWound: clean AND dryTemperature: NoDrains: Steven Montes 06/14/2018 1:32 PM SignedPancreatic Cyst HANDP [id number]/[facility]/1937Thi s consult was requested by Marie Castro, for evaluation ofpancreatic cyst(s) My final recommendations will be communicated to theremescalero service uniting health care provider by way of the shared medical record or [facility].HPIAshwini Vickers is a [...] Insufficient CEA: 24.7 AMYLASE: 80,699Results for ASHWINI VICKESR ( ) as of 06/14/2018 10:20 Ref. Range 04/27/2018 08:50Body Fluid Type (Amylase) Unknown Fluid-otherAmylase, Body Fluid Latest Ref Range: See Comment U/L 80,699 (A)Glucose, Body Fld Latest Ref Range: See Comment mg/dL <2 (A)CEA: 24.7FNA: Negative for malignant cells. Paucicellular specimen.Serum LabsNo results found for: UENDB52-7 (U/mL)Date Value04/19/2018 61 No results found for: [...] he would like to pursue surgicalintervention in [place]. We have provided [facility] and recommend that the procedure should be [...] patient and answering all of their questionsSIGNATURE:Andrei Julian MDHPB surgeryPager: [phone]: Referring Provider: MARIE CASTRO [[id number]]Allergies As of Date: 06/14/2018(No Known Allergies)Date Reviewed: 06/14/2018Reviewed by: Marie Julian - Fully AssessedPrimary Visit Diagnosis:IPMN (intraductal papillary mucinous neoplasm) [D49.0]Prescriptions as of 06/14/2018 Sig: [id number]-VRHATVPF-DUSVWGG 24,00* Take 2 capsules by mouth thre* [...] regularWound: clean AND dryTemperature: NoDrains: NoEncounter Number: [id number] Status:Closed by MARIE JULIAN MD on 06/14/18 Normal [facility] HISTORY PHYSICALon 8 HISTORY PHYSICAL HNO ID: [id number] thor: Marie Morris: (none)Author Type: PhysicianType: HANDPFiled: [...] answering all of their questionsSIGNATURE:PAM [place] surgeryPager: [phone]: Normal [facility] John HISTORY PHYSICAL HNO ID: [id number] thor: Josie Castellon (Res) GamaleldinService: (none)Author Type: ResidentType: HANDPFiled: 06/14/2018 1:32 PMNote Text:Pancreatic Cyst HANDP InitialSaeliezer [id number] s consult was requested by Marie Castro, for evaluation ofpancreatic cyst(s) My final recommendations will be communicated to [facility] health care provider by way of [...] cells. Paucicellular specimen.Serum LabsNo results found for: EHVCY66-4 (U/mL)Date Value04/19/2018 61 No results found for: [...] would like to pursue surgical intervention in [place].We have provided him with the name of an HPB surgeon at [facility] that the procedure should be done by an HPB surgeon. Seen with Josie Méndez MD10:21 AM06/14/2018 Normal [facility] ANES Wilma 04-27-2018 ANES POST HNO ID: [id number] thor: Guille Manning: (none)Author Type: AnesthesiologistType: Anesthesia [...] 27, 2018 : 9:48 AM PAGER/CONTACT #: [phone] Normal [facility] Amylase,Body Fluidon 018 Amylase,Body Fluid 95178 U/L Critically abnormal See Comment [facility] Comment on above: Result Comment: (NOT E)PLEURAL [...] CLSI document C49-A. BRAD Alarcon: Clinical LaboratoryStandards [place]; 2007.3. Denice CAI, Chantale REAL, Tyson DJ. Use of cyst fluid CEA,CA19-9, and amylase for evaluation of pancreatic lesions. ClinicalBiochemistry. 2009;42:9951-6139.This test was developed and its performance characteristicsdetermined by [facility]'s [facility] ([facility]).It has not been cleared or approved by the FDA. [facility] is regulatedunder [place] as qualified to perform high-complexity testing.This test is used for clinical purposes. It should not be regarded asinvestigational or for research. Performed By: #### P T, CBCDIF, HFP, TSH, CA199 ####[place] [address], [place] [phone] Fluid Type Fluid-other Normal [facility] Comment on above: Result Comment: PANC REATIC CYST FLUID Performed By: #### P T, CBCDIF, HFP, TSH, CA199 ####[facility] [place], [place] [phone] CEA, Fluidon 04-27-2018 CEA, Fluid 24.7 ng/mL Normal [facility] Comment on above: Result Comment: (NOT E)INTERPRETIVE INFORMATION: Carcinoembryonic Antigen, FluidThe Jacques CEA electrochemiluminescent immunoassay was used.Results obtained with different assay methods or kits cannot beused interchangeably. The CEA assay value, regardless of level,should not be interpreted as evidence for the presence or absenceof malignant disease.For information on body fluid reference ranges and/or interpretiveguidance visit http://[email or web address]/Test developed and characteristics determined by [facility]. See Compliance Statement B: [facility] [facility]/CSPerformed by [employer],[address] [place] [address] pnu.[facility] [facility], Oswaldo Tellez MD, Lab. Director Performed By: #### P T, CBCDIF, HFP, TSH, CA199 ####[facility] [address] AvAbil[place], [place] [phone] Source, Fluid Fluid-other Normal [facility] Comment on above: Result Comment: PANC REATIC CYST FLUID Performed By: #### P T, CBCDIF, HFP, TSH, CA199 ####[facility], [place] [phone] Glucose, Body Fluidon 2017 Glucose, Body Fluid <2 Critically abnormal See Comment [facility] Comment on above: Result Comment: Resu lt rechecked. Performed By: #### P T, CBCDIF, HFP, TSH, CA199 ####[facility] AveCT[address] [place] [phone] CA 19-9on 04-19-2018 CA 19-9 61 U/mL High <36 [facility] Comment on above: Result Comment: Test analyzed by the [employer] DxI method. Performed By: #### P T, CBCDIF, HFP, TSH, CA199 ####[facility] AveCTara [place] [phone] CBC and Differentialon 04-19 Abs Baso <0.03 Normal <0.11 [facility] Comment on above: Performed By: #### P T, CBCDIF, HFP, TSH, CA199 ####[facility], [place] [phone] Abs Gila 0.52 k/uL Normal <0.87 [facility] Comment on above: Performed By: #### P T, CBCDIF, HFP, TSH, CA199 ####[facility], [place] [phone] Abs Neut 3.73 k/uL Normal 1.45-7.50 [facility] Comment on above: Performed By: #### P T, CBCDIF, HFP, TSH, CA199 ####[place] [address], [place] [phone] Absolute nRBC <0.01 Normal <0.01 [facility] Comment on above: Performed By: #### P T, CBCDIF, HFP, TSH, CA199 ####[facility] AveClevelandGary [place] [phone] Basophils/100 WBC Auto (Bld) 0.3 % Normal [facility] Comment on above: Performed By: #### P T, CBCDIF, HFP, TSH, CA199 ####[place] [address]leveland[address] [place] [phone] DTYPE Auto Diff Normal [facility] Comment on above: Performed By: #### P T, CBCDIF, HFP, TSH, CA199 ####[place] [address]ClevelG[address] [place] [phone] Eosinophils Auto #/vol (Bld) 0.09 10*3/uL Normal <0.46 [facility] Comment on above: Performed By: #### P T, CBCDIF, HFP, TSH, CA199 ####[facility] AveClevelGina [place] [phone] Eosinophils/100 WBC Auto (Bld) 1.5 % Normal [facility] Comment on above: Performed By: #### P T, CBCDIF, HFP, TSH, CA199 ####[facility] AveClevelMidway, [place] [phone] Erythrocyte distribution width Auto Ratio (RBC) 15.0 % Normal 11.5-15.0 [facility] Comment on above: Performed By: #### P T, CBCDIF, HFP, TSH, CA199 ####[facility] AveClevelandNatron[place], [place] [phone] Hematocrit Auto Volume Fraction (Bld) 44.6 % Normal 39.0-51.0 [facility] Comment on above: Performed By: #### P T, CBCDIF, HFP, TSH, CA199 ####[facility]levelandGary [place] [phone] Hemoglobin mass conc (Bld) 13.7 g/dL Normal 13.0-17.0 [facility] Comment on above: Performed By: #### P T, CBCDIF, HFP, TSH, CA199 ####[place] [address], [place] [phone] Lymphocytes Auto #/vol (Bld) 1.79 10*3/uL Normal 1.00-4.00 [facility] Comment on above: Performed By: #### P T, CBCDIF, HFP, TSH, CA199 ####[place] [address], [place] [phone] Lymphocytes/100 WBC Auto (Bld) 29.0 % Normal [facility] Comment on above: Performed By: #### P T, CBCDIF, HFP, TSH, CA199 ####[place] [address], [place] [phone] MCH Auto Entitic mass (RBC) 26.7 pG Normal 26.0-34.0 [facility] Comment on above: Performed By: #### P T, CBCDIF, HFP, TSH, CA199 ####[place] [address], [place] [phone] MCHC Auto mass conc (RBC) 30.7 g/dL Normal 30.5-36.0 [facility] Comment on above: Performed By: #### P T, CBCDIF, HFP, TSH, CA199 ####[place] [address], [place] [phone] MCV Auto Entitic volume (RBC) 86.8 fL Normal 80.0-100.0 [facility] Comment on above: Performed By: #### P T, CBCDIF, HFP, TSH, CA199 ####[facility]CT[address], [place] [phone] Monocytes/100 WBC Auto (Bld) 8.4 % Normal [facility] Comment on above: Performed By: #### P T, CBCDIF, HFP, TSH, CA199 ####[facility], [place] [phone] Neutrophils/100 WBC Auto (Bld) 60.8 % Normal [facility] Comment on above: Performed By: #### P T, CBCDIF, HFP, TSH, CA199 ####[facility]ClevelandNatron[address] [place], [place] [phone] NRBCs 0.0 /100 WBC Normal 0 [facility] Comment on above: Performed By: #### P T, CBCDIF, HFP, TSH, CA199 ####[facility], [place] [phone] Platelet mean volume Auto Entitic volume (Bld) 10.6 fL Normal 9.0-12.7 [facility] Comment on above: Performed By: #### P T, CBCDIF, HFP, TSH, CA199 ####[facility], [place] [phone] Platelets Auto #/vol (Bld) 130 10*3/uL Low 150-400 [facility] Comment on above: Result Comment: Resu lt checked and verifiedNo clot detected. Performed By: #### P T, CBCDIF, HFP, TSH, CA199 ####[facility], [place] [phone] RBC Auto #/vol (Bld) 5.14 10*6/uL Normal 4.20-6.00 [facility] Comment on above: Performed By: #### P T, CBCDIF, HFP, TSH, CA199 ####[facility], [place] [phone] WBC Auto #/vol (Bld) 6.17 10*3/uL Normal 3.70-11.00 [facility] Comment on above: Performed By: #### P T, CBCDIF, HFP, TSH, CA199 ####[facility] [place], [place] [phone] CNOVon 04-19-2018 CNOV Office Visit (GASTMN) ASHWINI VICKERS ([id number]) 1935 [facility] Time Provider Jklfttmwpt35/9/18 7:40 AM MARINO CASTILLO GASTMN During your visit today, we recorded the following information about you: Temperature Pulse Blood pressure Weight 97.7 degrees 44/minute 150/68 65.7 kg Height 1.803 NMalva Castillo MD 04/19/2018 10:06 AM SignedNew Patient/ConsultREASON FOR VISITSamclive Vickers is a 83 year old male who is scheduled for a consult at [facility] of Marie Castro MD.PCPRobert Tru Castro MD.[address] [place] [id number] COMPLAINTReferral for Pancreatic Cancer screeningWeight lossMy final [...] familyagreeable with this plan. Questions answered.Marino Castillo MDMclaren Greater Lansing Hospitalober 201710:36 AMTykatharina Castillo MD 04/19/2018 8:32 AM SignedExpect a call to schedule your endoscopy appointment today or tomorrow morning.If you haven't heard, call me. 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 My office number is [phone] Number: [id number] Status:Closed by MARINO CASTILLO MD on 04/19/18 [facility] 04-19-2018 HOSP Patient:Julio Vickers lMRN: Height:5' 11 [...] received? No need to getanother copy from [employer].Thanks,Rl Bonilla, OCC MED PHYSICIAN, OCC MED PHYSICIAN 04/19/2018 12:26 PM SignedCalled pt to let him know the cd was received and no need to get a copy.Progress Notes (KIMBERLEE MAIN A30):Marino Castillo MD 04/19/2018 10:06 AM SignedNew Patient/ConsultREASON FOR VISITSkary Vickers is a 83 year old male who is scheduled for a consult at [facility] of Marie Castro MD.PCPRobert Tru Castro MD.[address] COMPLAINTReferral for Pancreatic Cancer screeningWeight lossMy [...] heard, call me. My office number is [phone] Normal [facility] Hepatic Functn Panelon 04-19 Albumin mass conc 4.3 g/dL Normal 3.9-4.9 [facility] Comment on above: Performed By: #### P T, CBCDIF, HFP, TSH, CA199 ####[facility] [address] AvAb[place], [place] [phone] ALP enzyme act/vol 83 U/L Normal 38-113 [facility] Comment on above: Performed By: #### P T, CBCDIF, HFP, TSH, CA199 ####[facility] [address] AveCTurpin, [place] [phone] ALT enzyme act/vol 12 U/L Normal 10-54 [facility] Comment on above: Performed By: #### P T, CBCDIF, HFP, TSH, CA199 ####[facility] [address] AveCTurpin, [place] [phone] AST enzyme act/vol 18 U/L Normal 14-40 [facility] Comment on above: Performed By: #### P T, CBCDIF, HFP, TSH, CA199 ####[facility] [address] AveCTur[address], [place] [phone] Bilirubin mass conc 0.3 mg/dL Normal 0.2-1.3 [facility] Comment on above: Performed By: #### P T, CBCDIF, HFP, TSH, CA199 ####[place] [address] [place], [place] [phone] Bilirubin,Conjugated <0.2 Normal <0.2 [facility] Comment on above: Performed By: #### P T, CBCDIF, HFP, TSH, CA199 ####[place] [address] [place], [place] [phone] Protein mass conc 6.9 g/dL Normal 6.3-8.0 [facility] Comment on above: Performed By: #### P T, CBCDIF, HFP, TSH, CA199 ####[address] [phone] Protimeon 04-19-2018 INR Coag RelTime (Bld) 1.0 {INR} Normal 0.9-1.3 [facility] Comment on above: Result Comment: Robina min K Antagonist (VKA) Therapeutic Range: INR 2 to 3 (Target INR of 2.5)Note: For patients treated with VKA drugs, such as warfarin, the [place] [employer] 2012 Guideline recommends [...] al. Chest 2012, 141:7S-47SJames PRINCE et al. [facility] 2017, 70: 252-289 Performed By: #### P T, CBCDIF, HFP, TSH, CA199 ####[place] [address] [place], [place] [phone] PT Sec 10.9 sec Normal 9.7-13.0 [facility] Comment on above: Performed By: #### P T, CBCDIF, HFP, TSH, CA199 ####[facility] [address] [place], [place] [phone] TSHon 04-19-2018 Thyrotropin Qn 0.874 uU/mL Normal 0.400-5.50 0 [facility] Comment on above: Performed By: #### P T, CBCDIF, HFP, TSH, CA199 ####[facility] [place], [place] [phone] PROGRESSon 04-11-2018 Protein mass conc HNO ID: [id number] thor: Marino Cummings: (none)Author Type: PhysicianType: Progress NotesFiled: 04/19/2018 10:06 AMNote Text:New Patient/ConsultREASON FOR Jas Vickers is a 83 year old male who is scheduled for a consult at [facility] of Marie Castro MD.PCPRobert Tru Castro MD.[facility] [address] COMPLAINTReferral for Pancreatic Cancer screeningWeight lossMy final recommendations will be communicated back to the requestingphysician by the way of the shared medical record, fax, or via US Mail.HISTORY OF PRESENT ILLNESSThis patient has presented with several months of unexplained weight kxro39-44 pounds. There are no gastrointestinal symptoms to [...] plan. Questionsanswered.Marino Castillo MDOctober 201710:36 AM Normal [facility] CT OUTSIDE CD DICOM IMPORT - NBNRon 03-29-2018 CT OUTSIDE CD DICOM IMPORT -NBNR Images were obtained outside of [facility] [id number] Normal [facility] CT-CT abdomen pelvis wo/w co n IMPORTon 03-29-2018 CT-CT abdomen pelvis wo/w con IMPORT Images were obtained outside of [facility] [id number] Normal [facility] Vital Signs Date Time Vital Sign Value Performing Clinician Facility 08-16-2023 14:07-0500 Body height 177.8 cm Sammy AYALA Work Phone: [facility] 08-16-2023 14:07-0500 Body mass index (BMI) [Ratio] 20.09 kg/m2 Sammy Wolff APRN-KALANI Work Phone: [facility] 08-16-2023 14:07-0500 Body weight 63.5 kg Sammy Wolff LOG HANDLING EQUIPMENT OPERATOR-PIPE STEM ALIGNER Work Phone: [facility] 08-16-2023 14:07-0500 Diastolic blood pressure 80 mm[Hg] Sammy Wolff LOG HANDLING EQUIPMENT OPERATOR-PIPE STEM ALIGNER Work Phone: [facility] 08-16-2023 14:07-0500 Heart rate 72 /min Sammy Wolff LOG HANDLING EQUIPMENT OPERATOR-PIPE STEM ALIGNER Work Phone: [facility] 08-16-2023 14:07-0500 Systolic blood pressure 134 mm[Hg] Sammy Wolff LOG HANDLING EQUIPMENT OPERATOR-PIPE STEM ALIGNER Work Phone: [facility] 07-16-2023 22:45-0500 Diastolic blood pressure 95 mm[Hg] DO Marie Yunk Work Phone: [facility] 07-16-2023 22:45-0500 Heart rate 69 /min DO Marie Jamak Work Phone: [facility] 07-16-2023 22:45-0500 Respiratory rate 16 /min DO Marie Jamak Work Phone: [facility] 07-16-2023 22:45-0500 SaO2% (BldA) [Mass fraction] 98 % DO Marie Xavichak Work Phone: [facility] 07-16-2023 22:45-0500 Systolic blood pressure 164 mm[Hg] DO Marie Xavichak Work Phone: [facility] 07-16-2023 13:24-0500 Body height 177.8 cm DO Marie Xavichak Work Phone: [facility] 07-16-2023 13:24-0500 Body temperature 96.7 [degF] DO Marie Xavichak Work Phone: [facility] 07-16-2023 13:24-0500 Body weight 63.95 kg DO Marie Jamak Work Phone: [facility] 05-25-2023 13:41-0500 Diastolic blood pressure 88 mm[Hg] Adrián Davis DO Work Phone: [facility] 05-25-2023 13:41-0500 Systolic blood pressure 136 mm[Hg] Adrián Davis DO Work Phone: [facility] 05-25-2023 13:37-0500 Body height 177.8 cm Adrián Davis DO Work Phone: [facility] 05-25-2023 13:37-0500 Body mass index (BMI) [Ratio] 19.51 kg/m2 Adrián Davis DO Work Phone: [facility] 05-25-2023 13:37-0500 Body weight 61.69 kg Adrián Davis DO Work Phone: [facility] 05-25-2023 13:37-0500 Heart rate 70 /min Adrián Davis DO Work Phone: [facility] 05-08-2023 10:33-0400 Diastolic blood pressure 85 mm[Hg] DO Marie Vaschak Work Phone: [facility] 05-08-2023 10:33-0400 Heart rate 97 /min DO Marie Xavichak Work Phone: [facility] 05-08-2023 10:33-0400 Respiratory rate 18 /min DO Marie Xavichak Work Phone: [facility] 05-08-2023 10:33-0400 Systolic blood pressure 156 mm[Hg] DO Marie Vaschak Work Phone: [facility] 05-08-2023 05:00-0400 Body temperature 98.8 [degF] DO Marie Vaschak Work Phone: [facility] 05-08-2023 05:00-0400 SaO2% (BldA) [Mass fraction] 97 % DO Marie Vaschak Work Phone: [facility] 05-04-2023 11:00-0400 Body height 177.8 cm DO Marie Vaschak Work Phone: [facility] 05-03-2023 16:44-0400 Body weight 66.4 kg DO Marie Jamak Work Phone: [facility] 05-03-2023 11:48-0400 Body temperature 98.1 [degF] DO Marie Jamak Work Phone: [facility] 05-03-2023 11:48-0400 Diastolic blood pressure 77 mm[Hg] DO Marie Jamak Work Phone: [facility] 05-03-2023 11:48-0400 Heart rate 55 /min DO Marie Yunk Work Phone: [facility] 05-03-2023 11:48-0400 Respiratory rate 18 /min DO Marie Castro Work Phone: [facility] 05-03-2023 11:48-0400 SaO2% (BldA) [Mass fraction] 99 % DO Marie Matthew Work Phone: [facility] 05-03-2023 11:48-0400 Systolic blood pressure 146 mm[Hg] DO Marie Castro Work Phone: [facility] 05-03-2023 05:40-0400 Body weight 67.6 kg DO Marie Castro Work Phone: [facility] 05-02-2023 00:00-0400 Inhaled oxygen flow rate 6 L/min DO Marie Matthew Work Phone: [facility] 04-30-2023 15:31-0400 Body mass index (BMI) [Ratio] 18.8 kg/m2 DO Marie Jamak Work Phone: [facility] 04-30-2023 15:25-0400 Body height 180.34 cm DO Marie Jamak Work Phone: [facility] 04-28-2023 16:32-0400 Heart rate 63 /min DO Marie Xavichak Work Phone: [facility] [facility] 04-28-2023 16:24-0400 Diastolic blood pressure 83 mm[Hg] DO Marie Castro Work Phone: [facility] 04-28-2023 16:24-0400 Respiratory rate 18 /min DO Marie Castro Work Phone: [facility] 04-28-2023 16:24-0400 SaO2% (BldA) [Mass fraction] 98 % DO Marie Castro Work Phone: [facility] 04-28-2023 16:24-0400 Systolic blood pressure 167 mm[Hg] DO Marie Castro Work Phone: [facility] 04-28-2023 13:34-0400 Body temperature 97.2 [degF] DO Marie Castro Work Phone: [facility] 04-28-2023 12:19-0400 Body height 180.34 cm DO Marie Castro Work Phone: [facility] 04-28-2023 12:19-0400 Body weight 64.41 kg DO Marie Castro Work Phone: [facility] 01-07-2022 09:35-0400 Diastolic blood pressure 95 mm[Hg] Gray Ross MD Work Phone: [facility] [employer] 01-07-2022 09:35-0400 Systolic blood pressure 160 mm[Hg] Gray Ross MD Work Phone: [facility] [employer] 01-07-2022 07:46-0400 Body temperature 97.81 [degF] Gray Ross MD Work Phone: [facility] [employer] 01-07-2022 07:46-0400 Heart rate 64 /min Gray Ross MD Work Phone: [facility] [employer] 01-07-2022 07:46-0400 Respiratory rate 15 /min Gray Ross MD Work Phone: [employer] 01-07-2022 07:46-0400 SaO2% (BldA) [Mass fraction] 98 % Gray Ross MD Work Phone: [facility] [employer] 01-03-2022 04:00-0400 Body height 177.8 cm Gray Ross MD Work Phone: [facility] [employer] 01-03-2022 04:00-0400 Body mass index (BMI) [Ratio] 20.81 kg/m2 Gray Ross MD Work Phone: [facility] [employer] 01-03-2022 04:00-0400 Body weight 65.8 kg Gray Ross MD Work Phone: [facility] [employer] 04-27-2018 10:48-0400 Body mass index (BMI) [Ratio] MARINO CASTILLO [facility] Encounters Encounter Date Encounter Type Care Provider Facility Start: 08-16-2023 End: 08-16-2023 ambulatory SAMMY Skinner WOLFF [facility] [employer] Other Start: 08-16-2023 End: 08-16-2023 Office outpatient visit 15 minutes Sammy Skinner Wolff LOG HANDLING EQUIPMENT OPERATOR-PIPE STEM ALIGNER Work Phone: [facility] Comment on above: Cardiomyopathy, isch emic (Primary Dx); ASHD (arteriosclerotic heart disease); BMI 20.0-20.9, adult; Orthopnea Start: 08-16-2023 Telephone encounter Anat JENKINS [facility] Start: 07-27-2023 End: 07-27-2023 ambulatory Marie Castro Facility:[facility] Start: 07-27-2023 End: 07-27-2023 ambulatory DO Marie Xavijorge Work Phone: [facility] Work Phone: Start: 07-27-2023 End: 07-27-2023 Patient encounter procedure DO Marie Xavijorge Work Phone: [facility] Start: 07-16-2023 End: 07-17-2023 ambulatory Federico Saúl Davis Facility:[facility] Start: 07-16-2023 End: 07-16-2023 Admission to same day surgery center DO Marie Castro Work Phone: [facility]-[employer] Recruiter Work Phone: Start: 07-16-2023 End: 07-16-2023 ambulatory DO Marie Castro Work Phone: [facility] Work Phone: Start: 07-01-2023 ambulatory None Provider Facility: [facility] Start: 06-29-2023 ambulatory None Provider Facility: [facility] Start: 06-23-2023 End: 06-23-2023 ambulatory [facility] Start: 06-22-2023 End: 06-22-2023 ambulatory Ashwini Conrad Other [employer] Other Start: 06-22-2023 Telephone encounter [facility] Start: 06-11-2023 End: 06-11-2023 ambulatory Ashwini Conrad Facility:[facility] Start: 06-11-2023 End: 06-11-2023 ambulatory DO Marie Castro Work Phone: [facility] Work Phone: Start: 06-11-2023 End: 06-11-2023 Patient encounter procedure DO Marie Castro Work Phone: [facility] Start: 06-02-2023 End: 06-09-2023 ambulatory UNKNOWN PROVIDER Facility:[facility] Start: 05-26-2023 Telephone encounter [facility] Start: 05-26-2023 End: 05-27-2023 ambulatory MARIE CASTRO [facility] Work Phone: Start: 05-26-2023 End: 05-26-2023 Patient encounter procedure DO Marie Castro Work Phone: [facility] Start: 05-25-2023 End: 05-25-2023 ambulatory [facility] Amb[facility] Start: 05-25-2023 End: 05-25-2023 Office consultation new/estab patient 60 min Adrián Davis DO Work Phone: [facility] Comment on above: NSTEMI (non-ST eleva robert myocardial infarction) ([facility]/HCC) (Primary Dx); Abnormal stress test; ASHD (arteriosclerotic heart disease); Essential hypertension; Diabetes mellitus type II, non insulin dependent (CMS/[facility]); Closed fracture of right hip, initial encounter ([facility]) Start: 05-21-2023 Postop follow up vis it related to original px [facility] Start: 05-21-2023 End: 05-21-2023 ambulatory Ashwini Conrad [facility] [employer] Other Start: 05-21-2023 End: 05-21-2023 Patient encounter procedure DO Marie Castro Work Phone: [facility] Start: 05-03-2023 End: 05-08-2023 Evaluation and management of inpatient Fredi Medrano Facility:[facility] Start: 05-03-2023 End: 05-08-2023 Evaluation and management of inpatient DO Marie Castro Work Phone: [facility] Work Phone: Start: 04-28-2023 End: 05-03-2023 Evaluation and management of inpatient Humberto Diaz Facility:[facility] Start: 04-28-2023 End: 05-03-2023 Evaluation and management of inpatient DO Marie Castro Work Phone: [facility] Work Phone: Start: 04-23-2023 End: 04-24-2023 ambulatory None Provider Facility:[facility] Start: 06-05-2022 End: 06-06-[address] MARIE CASTRO Facility:[facility] Start: 05-18-2022 Encounter for other specified special examinations DR MARIE CASTRO [facility] Start: 05-14-2022 End: 05-15-[address] MARIE CASTRO Facility:[facility] Start: 05-14-2022 End: 05-15-2022 Encounter for other specified special examinations DR MARIE CASTRO Facility:[facility] Start: 01-02-2022 End: 01-07-2022 Evaluation and management of inpatient PAUL CONN [facility] Start: 01-02-2022 End: 01-07-2022 Evaluation and management of inpatient Gray Ross MD Work Phone: [id number] Comment on above: Acute gastric ulcer with perforation (HCC) (Primary Dx); Gastric perforation (HCC) Start: 01-02-2022 End: 01-02-[address] SALVADOR NARANJO Facility:[facility] Start: 06-14-2018 End: 06-15-2018 Patient encounter procedure MARIE JULIAN (FEL) [facility] Start: 04-27-2018 End: 04-27-2018 Patient encounter procedure MARINO CASTILLO [facility] Start: 04-19-2018 End: 04-20-2018 Patient encounter procedure MARINO Skinner CASTILLO [facility] Procedures Date Procedure Procedure Detail Performing Clinician Start: 08-16-2023 FOLLOW UP IN CARDIOLOGY ADRIÁN DAVIS Start: 07-27-2023 Plain X-ray of right hip DO Marie Castro Work Phone: Start: 07-16-2023 CL PCI MEDICAL OFFICE CLERK Ea Add LAD D O Marie Castro [...] Result Comment: PERF ORMED BY: [facility] [place] [id number] PATHOLOGIST HEART COORDINATOR AIRAM MAST M.D. Start: 04-30-2023 End: 04-30-2023 [...] DTaP/Tdap/Td vaccine (3 - Td or Tdap) [facility] Start: 03-18-2028 DTaP/Tdap/Td Vaccine s (3 - Td or Tdap) DTaP/Tdap/Td Vaccines (3 - Td or Tdap) [facility] Start: 08-16-2023 End: 08-16-2024 Basic metabolic 2000 panel - Serum or Plasma Basic Metabolic Panel Lab Routine Cardiomyopathy, ischemic Expected: 08/16/2023 (Approximate), Expires: 08/16/2024 [facility] Work Phone: Comment on above: Expected: 08/16/2023 (Approximate), Expires: 08/16/2024 Start: 08-16-2023 End: 08-16-2024 Natriuretic peptide B [Mass/volume] in Blood B-Type Natriuretic Peptide Lab Routine Cardiomyopathy, ischemic Orthopnea Expected: 08/16/2023 (Approximate), Expires: 08/16/2024 [facility] Service [facility] Work Phone: Comment on above: Expected: 08/16/2023 (Approximate), Expires: 08/16/2024 Start: 07-16-2023 End: 07-16-2023 [facility] Start: 07-13-2023 COVID-19 Vaccine (3 - Moderna series) COVID-19 Vaccine (3 - Moderna series) [facility] Start: 06-23-2023 End: 06-23-2023 Patient encounter procedure 06/23/2023 2:00 PM EST Office Visit [facility] [address] [place] [address] Sammy Wolff, LOG HANDLING EQUIPMENT OPERATOR-PIPE STEM ALIGNER [address] [place] [address] [facility] Start: 05-07-2023 [facility] Start: 05-04-2023 Administration of prophylactic treatment [facility] Start: 05-03-2023 Hospital admission [facility] Start: 05-03-2023 Referral to clinical technicians and trades workers [facility] Start: 05-03-2023 [facility] Start: 05-03-2023 Referral to rehabilitation physician [facility] Start: 05-02-2023 Blood chemistry [facility] Start: 05-02-2023 [facility] Start: 05-01-2023 Blood chemistry [facility] Start: 05-01-2023 [facility] Start: 04-30-2023 Referral to Cashier General [facility] Start: 04-30-2023 Blood chemistry [facility] Start: 04-30-2023 End: 04-30-2023 [facility] Start: 04-29-2023 Blood chemistry [facility] Start: 04-29-2023 Lipid panel [facility] Start: 04-29-2023 [facility] Start: 04-28-2023 [facility] Start: 04-28-2023 Hospital admission [facility] Start: 04-28-2023 [facility] Start: 04-28-2023 Hospital admission [facility] Start: 04-28-2023 Consultation [facility] Start: 04-28-2023 Referral to lockstitch tunnel elastic operator [facility] Start: 04-28-2023 End: 04-28-2023 [facility] Start: 04-28-2023 Fluoroscopy of Left Heart using Low Osmolar Contrast Fluoroscopy of Left Heart using Low Osmolar Contrast [facility] Start: 04-28-2023 Fluoroscopy of Multi ple Coronary Arteries using Low Osmolar Contrast Fluoroscopy of Multiple Coronary Arteries using Low Osmolar Contrast [facility] Start: 04-28-2023 Insertion of Intramedullary Internal Fixation Device into Right Upper Femur, Percutaneous Approach Insertion of Intramedullary Internal Fixation Device into Right Upper Femur, Percutaneous Approach [facility] Start: 04-28-2023 Measurement of Cardi ac Sampling and Pressure, Left Heart, Percutaneous Approach Measurement of Cardiac Sampling and Pressure, Left Heart, Percutaneous Approach [facility] Start: 04-04-2022 Hemoglobin A1c measurement Diabetes: Hemoglobin A1C [facility] Start: 06-30-2021 Shingles vaccine (2 of 2) Shingles vaccine (2 of 2) [facility] Start: 01-19-2021 COVID-19 Vaccine (3 - Booster for Moderna series) COVID-19 Vaccine (3 - Booster for Moderna series) [facility] Start: 09-14-2020 Meningococcal B Vacc ine (3 of 4 - Increased Risk Bexsero 2-dose series) Meningococcal B Vaccine (3 of 4 - Increased Risk Bexsero 2-dose series) [facility] Start: 1956 Urine screening for protein Diabetes: Urine Protein Screening [facility] Start: 1949 Depression Screen Depression Screen [employer] Start: 1947 Diabetic foot examination Diabetes: Foot Exam [facility] Start: 1947 Glaucoma screening Diabetes: R etinopathy Screening [facility] Start: 1947 Meningococcal B Vacc ine (1 of 4 - Increased Risk) Meningococcal B Vaccine (1 of 4 - Increased Risk) [facility] Start: 1939 Meningococcal Vaccin e (1 - Risk 2-dose series) Meningococcal Vaccine (1 - Risk 2-dose series) [facility] Start: 06-22-1938 HIB Vaccines (1 of 1 - Risk 1-dose series) HIB Vaccines (1 of 1 - Risk 1-dose series) [facility] Start: 1937 Annual Wellness Visi t (AWV) Annual Wellness Visit (AWV) [facility] Start: [facility] Lipid panel Lipid Panel [facility] Start: 1937 Medicare Annual Well ness Visit Medicare Annual Wellness Visit (AWV) [facility] Start: 1937 Screening for osteoporosis Bone Density Scan [facility] Basic Metabolic Pane l w/ Reflex to MG Basic Metabolic Panel w/ Reflex to MG Lab Routine Daily until discontinued starting 01/06/2022, 2 completed [employer] Phone: Comment on above: Daily until disconti nued starting 01/06/2022, 2 completed CBC W Auto Different ial panel - Blood CBC with Auto Differential Lab Routine Daily until discontinued starting 01/03/2022, 5 completed [employer] Phone: Comment on above: Daily until disconti nued starting 01/03/2022, 5 completed Glucose [Mass/volume ] in Serum or Plasma POCT Glucose Point of Care Testing STAT As Needed until discontinued starting 01/02/2022 [employer] Phone: Comment on above: As Needed until disc ontinued starting 01/02/2022 Glucose [Mass/volume ] in Serum or Plasma POCT glucose Point of Care Testing Routine Now Then Every 4hr until discontinued starting 01/03/2022 [employer] Phone: Comment on above: Now Then Every 4hr u ntil discontinued starting 01/03/2022 Glucose measurement estimated from glycated hemoglobin [facility] Oxygen therapy [[facility] Data Set] Initiate Oxygen Therapy Protocol Respiratory Care Routine As Needed until discontinued starting 01/02/2022 [employer] Phone: Comment on above: As Needed until disc ontinued starting 01/02/2022 Patient Education Carbohydrate C ounting Diet Femur Fracture (DC) Carb counting for adults with diabetes [facility] Work Phone: Patient referral [facility] Work Phone: Phosphate [Mass/volu me] in Serum or Plasma Phosphorus Lab Routine Daily until discontinued starting 01/06/2022, 2 completed [employer] Phone: Comment on above: Daily until disconti nued starting 01/06/2022, 2 completed Spirometry panel Incentive carolyn metry Respiratory Care Routine Every 2hr while awake until discontinued starting 01/03/2022 [employer] Phone: Comment on above: Every 2hr while awak e until discontinued starting 01/03/2022 [facility] Payers Date Payer Category Payer Unknown [id number] 2023 Self-pay [id number] 2002 Medicare MEDICARE MEDICAR E PART A AND B [id number] 2002-Present [address] [place] [address] [id number] 1959 Medicare [id number]. [id number] 1959 Unknown [id number] [id number]. [id number] 1937 Unknown [id number] 2.16.840.1.073962.3.579.2.175 1937 Unknown [id number] 2.16.840.1.948033.3.579.2.593 1937 Unknown [id number] 2.16.840.1.012952.3.579.2.593 1937 Unknown [id number] 2.16.840.1.431043.3.579.2.593 1937 Unknown [id number] 2.16.840.1.808224.3.579.2.1259 1937 Unknown [id number] 2.16.840.1.374608.3.579.2.1259 1937 Unknown [id number] 2.16.840.1.565465.3.579.2.732 1937 Unknown [id number] 2.16.840.1.513138.3.579.2.718 1937 Unknown [id number] 2.16.840.1.365165.3.579.2.718 1937 Unknown [id number] 2.16.840.1.243175.3.579.2.718 1937 Unknown [id number] 2.16.840.1.273670.3.579.2.1244 1937 Unknown [id number] 2.16.840.1.261337.3.579.2.1244 1937 Unknown [id number] 2.16.840.1.554300.3.579.2.1244 Unknown [id number] 2.16.840.1.139417.3.579.2.531 Unknown [id number] 2.16.840.1.624115.3.579.2.531 Unknown [id number] 2.16.840.1.945071.3.579.2.531 Unknown [id number] 2.16.840.1.535288.3.579.2.531 Unknown [id number] 2.16.840.1.479456.3.579.2.531 Unknown [id number] 2.16.840.1.227458.3.579.2.531 Social History Date Type Detail Facility Start: 01-04-2022 End: 08-16-2023 Tobacco smoking status SDIS Ex-smoker [employer] End: 08-09-2022 History of tobacco use Cigarette Smoker [employer] Phone: Start: 01-04-2022 End: 08-16-2023 Tobacco use and exposure Smokeless tobacco non-user [employer] Phone: Start: 01-05-2022 Alcohol intake Ex-drinker (finding) [employer] Phone: Start: 1935 Sex Assigned At Not on file B [facility] [employer] Phone: Start: 12-24-2021 End: 08-16-2023 Exposure to SARS-CoV-2 (event) Not sure [employer] Start: 04-28-2023 End: 05-04-2023 Tobacco smoking status [facility] Current some day smoker [facility] Start: 1935 Sex Assigned At Male F [facility] Start: 05-25-2023 End: 08-16-2023 Sex Assigned At [facility] [employer] Other Start: 05-25-2023 End: 08-16-2023 Alcohol intake Current drinker of alcohol (finding) [facility] Work Phone: Start: 05-25-2023 End: 08-16-2023 Alcohol intake [facility] Work Phone: Start: 07-16-2023 End: 08-09-2022 Tobacco smoking status NHIS Smoker (finding) [facility] Medical Equipment Procedure Code Equipment Code Equipment Origin al Text Equipment Identifier Dates ORIF, hip Orthopaedic bone screw, non-bioabsorbable, non-sterile [id number] FDA Start: 04-30-2023 ORIF, hip Femur nail, sterile [id number] FDA Start: 04-30-2023 ORIF, hip Spiral blade [id number] FDA Start: 04-30-2023 CL STENT MARK FRONTIER 3.5 X 18 FDA Start: 07-16-2023 Goals Date Patient Goal Desired Activity /State Functional Status Date Assessment Result Facility 07-16-2023 Functional status Patient at Baseline [facility] Work Phone: 05-08-2023 Functional status Patient is Pro gressing Toward Baseline [facility] Work Phone: 05-03-2023 Functional status Patient is Pro gressing Toward Baseline [facility] Work Phone: 04-28-2023 Functional status Patient Not at Baseline [facility] Work Phone: Mental Status Date Assessment Result Facility 07-16-2023 Cognitive function Cognitive Sta tus Patient at Baseline [facility] Work Phone: 05-08-2023 Cognitive function Cognitive Sta tus Patient is Progressing Toward Baseline [facility] Work Phone: 05-03-2023 Cognitive function Cognitive Sta tus Patient is Progressing Toward Baseline [facility] Work Phone: 04-28-2023 Cognitive function Cognitive Sta tus Patient at Baseline [facility] Work Phone: Clinical Notes 01-07-2022 to 08-16-2023 Assessment & Plan Note - Sammy Wolff APRN-PIPE STEM ALIGNER - 08/16/2023 2:40 PM ESTAssessment & Plan [...] follow up with primary Cardiology next week [facility] Work Phone: 08-16-2023 Miscellaneous Notes Associated Problem(s): [...] Elective PCI: Jul LAD: unsuccessful attempt - MEDICAL OFFICE CLERK oDiag PCI/Sorrento 3.5 x 18mm Daily activity < 4 METs documented in this encounter [facility] Work Phone: 08-16-2023 Evaluation + Plan note Associated Problem(s): ASHD (arteriosclerotic heart disease) Jun 2023 [facility] presented due to mechanical fall. Incidental troponin elevations Echo EF 40-45% Cath: two-vessel disease; ef 40% anterior hypokinesis Elective PCI: Jul LAD: unsuccessful attempt - MEDICAL OFFICE CLERK oDiag PCI/Sorrento 3.5 x 18mm Daily activity < 4 METs [facility] Work Phone: 08-16-2023 History of Presen t [...] date. Will be seeking POC from primary lockstitch tunnel elastic operator. Patient reports that overall has complaint(s) of [...] to Plavix. Will schedule follow-up with primary lockstitch tunnel elastic operator Dr. Perez next week. Review of Systems [...] Assessment: ASHD (arteriosclerotic heart disease) Jun 2023 [facility] presented due to mechanical fall. Incidental troponin elevations Echo EF 40-45% Cath: two-vessel disease; ef 40% anterior hypokinesis Elective PCI: Jul LAD: unsuccessful attempt - MEDICAL OFFICE CLERK oDiag PCI/Sorrento 3.5 x 18mm Daily activity < 4 [...] medications to the office Sammy Wolff MSN, LOG HANDLING EQUIPMENT OPERATOR-PIPE STEM ALIGNER, PMHNP-[facility] Please excuse any errors in grammar or translation related to this dictation. Voice recognition software was utilized to prepare this document. documented in this encounter [facility] Work Phone: 08-16-2023 Instructions JAMIE Miramontes - [...] to the office documented in this encounter [facility] Work Phone: 07-16-2023 Discharge summary Note Date/Time July 16, 2023 4:06pm [place] [address] Discharge Summary Signed Patient: Ashwini Vickers MR#: [id number] : 1935 Acct:[id number] Age/Sex: 88 / M Adm Date: 4 [...] Final Discharge Diagnosis: 1. Recent non-ST elevation IN associated with fall and hip fracture 2. Severe two-vessel ASHD involving mid LAD and diagonal branch bifurcation 3. Mild LV dysfunction 4. Successful PCI ostial diagonal branch into the LAD with 3.5 x 18 mm Mark stent 5. Chronic total occlusion proximal/mid LAD Summary Hospital Course Hospital course: 88-year-old gentleman with recent fall and hip fracture complicated by non-ST elevation IN, abnormal stress imaging and subsequent diagnosis of severe two-vessel coronary artery disease involving mid LAD and large diagonal branch bifurcation. The LAD itself is subtotally occluded with the diagonal branch origin being 80 to 85%. Patient was referred for elective attempt at crossing the LAD with possible revascularization as well as revascularization of the ostial diagonal branch. LAD was attempted and deemed a MEDICAL OFFICE CLERK and therefore aborted, diagonal branch was stented [...] % (Auto) 75.7, Lymph % (Auto) 8.4, Gila % (Auto) 15.1, Eos % (Auto) 0.3, Baso % (Auto) 0.5, Nucleat RBC Rel Count 0.1, Neut # (Auto) 6.3, Lymph # (Auto) 0.7 L, Gila # (Auto) 1.3 H, Eos # (Auto) [...] doctor or pharmacist, without first calling the lockstitch tunnel elastic operator who implanted the stent. If you require [...] weight lifting, stair steppers, etc. until the lockstitch tunnel elastic operator approves these activities. Check with the lockstitch tunnel elastic operator on your first follow-up visit. CALL YOUR PHYSICIAN at [phone]: -If bleeding should occur from the catheter insertion site- apply pressure to the site then immediately call us. -Report any fever, redness, drainage, increased swelling, or firmness at the catheter insertion site. Some bruising or slight swelling may be present at thetime of discharge. -Should arm or leg become cold, numb, white, or blue, contact the lockstitch tunnel elastic operator immediately. -IF you should experience episodes of [...] is recommended. Please call Central Scheduling at [phone] to schedule your appointment.] The attending lockstitch tunnel elastic operator or [facility] nurse clinician should provide you with specific instructions regarding activity, diet, medications, and further follow up for you. Follow the medication instructions provided on your discharge. If the dosages and instructions on this sheet differ from the dosage and instructions on the bottle, follow the instructions on the bottle. [facility] is not responsible for incorrect prescription [...] 30 Days Qty: 30 0RF Follow Up: [facility] [Outside] - 08/16/23 2:00 pm Documented By: Federico Davis DO 07/16/23 6897 Signed By: <Electronically signed by Federico Davis, DO> 07/16/23 1609 [facility] Work Phone: 1(207) 797-484101-05-2024 [facility] History of Present illness Narrative* Adrián Davis, - 05/25/2023 1:00 PM EST Subjective Ashwini Vickers is a 88 y.o. male Chief Complaint Hospital Follow-up Seen in cardiology consultation at the request of Dr. Anat Perez for further evaluation and management in regards to coronary artery disease, recent non-ST elevation IN with moderately reduced left ventricular dysfunction and [...] Future 3. NSTEMI (non-ST elevated myocardial infarction) ([facility]) - Follow Up In Cardiology; Future 4. Essential hypertension 5. Diabetes mellitus type II, non insulin dependent ([facility]) 6. Closed fracture of right hip, initial encounter ([facility]) [facility] Work Phone: 1(953) 172-557711-14-2023 Instructions* Patient Instructions* Lori Pelayo LPN - [...] time of your visit. [facility] Work Phone: 1(143) 978-778011-10-2023 Evaluation note* Encounter Date Diagnosis Assessment Notes Treatment Notes Treatment Clinical Notes May, Closed displaced intertrochanteric fracture of right femur, initial encounter (ICD-10 - S72.141A) Radiographs of right hip was reviewed with the patient today, along with a physical examination. Patient should continue with PT. Continue use of pain medication to control pain. Alerts Other 10-27-2023 Progress note Author Fredi Medrano [facility] May 07, 2023 12:48pm Note Date/Time May 07, 2023 1 2:36pm [facility] [address] [place] [address] Physiatry(Rehab) Progress Note Signed Patient: Ashwini Vickers MR#: [id number] : 1935 Acct:[id number] Age/Sex: 88 / M Adm Date: 3 Loc: Room: 6M3175-2 Type: ADM IN Attending Dr: Fredi Medrano [...] hypoglycemic in 40s. Patient was brought to [facility] ER where imaging demonstrated mildly displaced right [...] does not believe he has had an IN and is planning on performing an intervention [...] mg 05/03/23 16:59 Bisacodyl 10 Mg Supp.Rect DC 05/02/24 16:58 DAILY PRN Constipation Calcium Carbonate [...] 16:59 Docusate Enema 283 Mg/5 Ml Enema DC 05/02/24 16:58 DAILY PRN Constipation Enoxaparin Sodium [...] Code(s): I25.10 - Atherosclerotic heart disease of tribal coronary artery without angina pectoris Status: Acute [...] Code(s): I25.10 - Atherosclerotic heart disease of tribal coronary artery without angina pectoris Status: Acute (9) Postoperative pain, acute, hip: Code(s): G89.18 - Other acute postprocedural pain; M25.559 - Pain in unspecified hip Status: Acute Plan 88-year-old male presenting to acute inpatient rehabilitation unit with functional impairments secondary to right hip fracture s/p repair. Hospital course complicated by non-IN troponin elevation. He was found to have [...] equipment to enhance the patient's a functional sabianist Ensure adequate nutrition and hydration Sleep no issues Pain: Continue current regimen. Discharge planning Home with in 7 to 10 days. I spent greater than 15 minutes for services, including ocbf-iw-tswd encounter with the patient, discussion of the case, plan of care, and exam; and kmscnbp-jx-yooy activities, such as reviewing pertinent labor relations consultant documentation, recent therapy notes, laboratory and radiology studies, and discussion of case with care team including physician, nursing, case technician, and therapists. More than 50 % of time was spent on patient/family counseling or coordination ofcare. Plan: I completed a substantive portion of this encounter, the medical decision makingportion of this note in its entirety, including Allied health note review, nursing note review, labor relations consultant note review, discussion with nursing and case management, and more than 50% of my time was spent on counseling and coordination of care, time spent 25 minutes Patient was personally seen by me, Dr. Medrano, on the day of encounter, reviewed the history and the relevant portions of the chart, including current orders, allied health and labor relations consultant notes, labs/imaging and performed smyth elements of exam and I formulated the plan of care and facilitated the medical decision making. Documented By: Fredi Medrano MD 1234 Signed By: <Electronically signed by Fredi Medrano MD> 05/07/23 1248 [facility] Work Phone: 1([phone]) 929-538510-26-2023 Progress note Author Fredi Medrano [facility] May 06, 2023 2:46pm Note Date/Time May 06, 2023 1 2:53pm [facility] [address] [place] [address] Physiatry(Rehab) Progress Note Signed Patient: Ashwini Vickers MR#: [id number] : 1935 Acct:[id number] Age/Sex: 88 / M Adm Date: 3 Loc: Room: [address] [place] [address] Type: ADM IN Attending Dr: Fredi Medrano [...] hypoglycemic in 40s. Patient was brought to [facility] ER where imaging demonstrated mildly displaced right [...] does not believe he has had an IN and is planning on performing an intervention [...] mg 05/03/23 16:59 Bisacodyl 10 Mg Supp.Rect DC 05/02/24 16:58 DAILY PRN Constipation Calcium Carbonate [...] 16:59 Docusate Enema 283 Mg/5 Ml Enema DC 05/02/24 16:58 DAILY PRN Constipation Enoxaparin Sodium [...] Insuln.Pen SUBCUT 05/02/24 17:59 Not Given ACHS [facility] Protocol Insulin Glargine 7 units 05/03/23 21:00 [...] mg DAILY TAVIA Administration Assessment/Plan <Teena Victoria, LOG HANDLING EQUIPMENT OPERATOR - Last Filed: 05/06/23 13:14> Assessment/Plan (1) Closed intertrochanteric fracture of right hip: Code(s): S72.141A - Displaced intertrochanteric fracture of right femur, initial encounter for closed fracture Status: Acute (2) CAD (coronary artery disease): Code(s): I25.10 - Atherosclerotic heart disease of tribal coronary artery without angina pectoris Status: Acute [...] Code(s): I25.10 - Atherosclerotic heart disease of tribal coronary artery without angina pectoris Status: Acute (9) Postoperative pain, acute, hip: Code(s): G89.18 - Other acute postprocedural pain; M25.559 - Pain in unspecified hip Status: Acute Plan 88-year-old male presenting to acute inpatient rehabilitation unit with functional impairments secondary to right hip fracture s/p repair. Hospital course complicated by non-[place] troponin elevation. He was found to have [...] equipment to enhance the patient's a functional sabianist Ensure adequate nutrition and hydration Sleep no issues Pain: Continue current regimen. Discharge planning Home with in 7 to 10 days. I spent greater than 15 minutes for services, including uwjl-dk-usht encounter with the patient, discussion of the case, plan of care, and exam; and unrhrrg-er-erlx activities, such as reviewing pertinent labor relations consultant documentation, recent therapy notes, laboratory and radiology studies, and discussion of case with care team including physician, nursing, case technician, and therapists. More than 50 % of [...] the chart, including currentorders, allied health and labor relations consultant notes, labs/imaging and plan of care as above. Documented By: Teena Victoria APRN 05/06/23 1 250 Signed By: <Electronically signed by AMADA Victoria> 05/06/23 1314 <Electronically signed by Fredi Medrano MD> 05/06/23 5277 [facility] Work Phone: [phone]) 820-452010-26-2023 Consult note Author Vidya Robert [facility] May 06, 2023 1:15pm Note Date/Time May 04, 2023 3 :49pm [facility] [address] [place] [address] Hospitalist Consult Note Signed Patient: Ashwini Vickers MR#: [id number] : 1935 Acct:[id number] Age/Sex: 88 / M Adm Date: 3 Loc: Room: [address] [place] [address] Type: ADM IN Attending Dr: Fredi Medrano [...] negative unless noted below or in HPI [facility] Medical History (Updated 05/04/23 @ 16:15 by [...] Allergies Allergy (Verified 04/28/23 12:20) Home Medications bajmpm-mtejfauq-yqepwfn 24,000-76,000-120,000 unit capsule,delayed rel (Creon) 2cap PO [...] mg 05/03/23 16:59 Bisacodyl 10 Mg Supp.Rect DC 05/02/24 16:58 DAILY PRN Constipation Calcium Carbonate [...] 16:59 Docusate Enema 283 Mg/5 Ml Enema DC 05/02/24 16:58 DAILY PRN Constipation Enoxaparin Sodium 40 mg 05/04/23 10:00 05/04/23 11:25 Enoxaparin 40 Mg/0.4 Ml Syringe SUBCUT 05/03/24 09:59 40 mg DAILY@1000 TAVIA Administration Insulin Aspart 0 units 05/03/23 17:00 05/04/23 13:00 Insulin Aspart 300 Units/3 Ml Insuln.Pen SUBCUT 05/02/24 16:59 7 units TID.WITH.MEALS [facility] Administration Protocol Insulin Aspart 0 units 05/03/23 18:00 05/04/23 12:35 Insulin Aspart 300 Units/3 Ml Insuln.Pen SUBCUT 05/02/24 17:59 2 units ACHS [facility] Administration Protocol Insulin Glargine 7 units 05/03/23 [...] % (Auto) 64.9, Lymph % (Auto) 23.0, Gila % (Auto) 9.9, Eos % (Auto) 1.5, Baso % (Auto) 0.7, Nucleat RBC Rel Count 0.2, Neut # (Auto) 4.6, Lymph # (Auto) 1.6, Gila # (Auto) 0.7, Eos # (Auto) 0.1, [...] By: <Electronically signed by AMADA Wright> 05/05/23 0824 <Electronically signed by Vidya Robert MD> 05/06/23 1319 [facility] Work Phone: [phone]) 969-207910-25-2023 Progress note Author Fredi Medrano [facility] May 05, 2023 1:10pm Note Date/Time May 05, 2023 1 :11pm [facility] [address] [place] [address] Physiatry(Rehab) Progress Note Signed Patient: Ashwini Vickers MR#: [id number] : 1935 Acct:[id number] Age/Sex: 88 / M Adm Date: 3 Loc: Room: [address] [place] [address] Type: ADM IN Attending Dr: Fredi Medrano [...] hypoglycemic in 40s. Patient was brought to [facility] ER where imaging demonstrated mildly displaced right [...] does not believe he has had an IN and is planning on performing an intervention [...] mg 05/03/23 16:59 Bisacodyl 10 Mg Supp.Rect DC 05/02/24 16:58 DAILY PRN Constipation Calcium Carbonate [...] 16:59 Docusate Enema 283 Mg/5 Ml Enema DC 05/02/24 16:58 DAILY PRN Constipation Enoxaparin Sodium [...] Insuln.Pen SUBCUT 05/02/24 16:59 6 units TID.WITH.MEALS [facility] Administration Protocol Insulin Aspart 0 units 05/03/23 18:00 05/05/23 13:03 Insulin Aspart 300 Units/3 Ml Insuln.Pen SUBCUT 05/02/24 17:59 2 units ACHS [facility] Administration Protocol Insulin Glargine 7 units 05/03/23 [...] Code(s): I25.10 - Atherosclerotic heart disease of tribal coronary artery without angina pectoris Status: Acute [...] Code(s): I25.10 - Atherosclerotic heart disease of tribal coronary artery without angina pectoris Status: Acute (9) Postoperative pain, acute, hip: Code(s): G89.18 - Other acute postprocedural pain; M25.559 - Pain in unspecified hip Status: Acute Plan 88-year-old male presenting to acute inpatient rehabilitation unit with functional impairments secondary to right hip fracture s/p repair. Hospital course complicated by non-[place] troponin elevation. He was found to have [...] equipment to enhance the patient's a functional sabianist Ensure adequate nutrition and hydration Sleep no issues Pain: Continue current regimen. Discharge planning Home with in 7 to 10 days. Plan: I completed a substantive portion of this encounter, the medical decision makingportion of this note in its entirety, including Allied health note review, nursing note review, labor relations consultant note review, discussion with nursing and case management, and more than 50% of my time was spent on counseling and coordination of care, time spent 25 minutes Patient was personally seen by me, Dr. Medrano, on the day of encounter, reviewed the history and the relevant portions of the chart, including current orders, allied health and labor relations consultant notes, labs/imaging and performed smyth elements of exam and I formulated the plan of care and facilitated the medical decision making. Documented By: Fredi Medrano MD 1308 Signed By: <Electronically signed by Fredi Medrano MD> 05/05/23 8177 [facility] Work Phone: 1(951) 430-389110-25-2023 History and physical note Author Fredi Medrano [facility] May 05, 2023 10:01am Note Date/Time May 04, 2023 1 1:35am [facility] [address] [place], [place] [id number] Physiatry (Rehab) H&P Signed Patient: Ashwini Vickers MR#: [id number] : 1935 Acct:[id number] Age/Sex: 88 / M Adm Date: 3 Loc: Room: [address] [place] [address] Type: ADM IN Attending Dr: Fredi Medrano [...] hypoglycemic in 40s. Patient was brought to [facility] ER where imaging demonstrated mildly displaced right [...] does not believe he has had an IN and is planning on performing an intervention [...] two-story home. Does not use assistive devices. [facility] Medical History Anxiety and depression BPH (benign [...] 12:20) Home and Active Meds: Home Medications sryfgh-obpxbcyq-ufnjirh 24,000-76,000-120,000 unit capsule,delayed rel (Creon) 2cap PO [...] 1 Cap Capsule.) 2 cap PO TID.WITH.MEALS [facility] Stop: 05/03/24 07:59 Last Admin: 05/04/23 08:18 Dose: 2 cap Ascorbic Acid (Ascorbic Acid 500 Mg Tablet) 500 mg PO DAILY TAVIA Stop: 05/03/24 08:59 Last Admin: 05/04/23 08:10 Dose: 500 mg Aspirin (Aspirin 81 Mg Tablet.) 81 mg PO DAILY TAVIA Stop: 05/03/24 08:59 Last Admin: 05/04/23 08:10 Dose: 81 mg Atorvastatin Calcium (Atorvastatin 80 Mg Tablet) 80 mg PO QPM [facility] Stop: 05/02/24 20:59 Last Admin: 05/03/23 21:13 Dose: 80 mg Bisacodyl (Bisacodyl 10 Mg Supp.Rect) 10 mg DC DAILY PRN PRN Reason: Constipation Stop: 05/02/24 16:58 Calcium Carbonate (Calcium Carbonate/Vitamin D3 500 Mg/200 Unit Tablet) 1 tab PO TID.WITH.MEALS [facility] Stop: 05/03/24 07:59 Last Admin: 05/04/23 08:10 Dose: 1 tab Cyclobenzaprine HCl (Cyclobenzaprine 5 Mg Tablet) 5 mg PO Q8H PRN PRN Reason: Muscle Spasm Stop: 05/03/24 10:29 Docusate Sodium (Docusate 100 Mg Capsule) 100 mg PO BID PRN PRN Reason: Constipation Stop: 05/02/24 16:58 Docusate Sodium (Docusate Enema 283 Mg/5 Ml Enema) 283 mg DC DAILY PRN PRN Reason: Constipation Stop: 05/02/24 16:58 Enoxaparin Sodium (Enoxaparin 40 Mg/0.4 Ml Syringe) 40 mg SUBCUT DAILY@1000 [facility] Stop: 05/03/24 09:59 Insulin Aspart (Insulin Aspart 300 Units/3 Ml Insuln.Pen) 0 units SUBCUT TID.WITH.MEALS [facility]; Protocol Stop: 05/02/24 16:59 Last Admin: 05/04/23 08:27 Dose: 7 units Insulin Aspart (Insulin Aspart 300 Units/3 Ml Insuln.Pen) 0 units SUBCUT ACHS [facility]; Protocol Stop: 05/02/24 17:59 Last Admin: 05/04/23 [...] 30 Mg Tablet) 30 mg PO DAILY [facility] Stop: 05/03/24 08:59 Last Admin: 05/04/23 08:10 Dose: 30 mg Sennosides (Sennosides 8.6 Mg Tablet) 2 tab PO DAILY@12 PRN PRN Reason: If no BM in 2 days Stop: 05/03/24 11:59 Sodium Chloride (Sodium Chloride 0.9 % 10 Ml Syringe) 0 ml IV-PUSH PRN PRN PRN Reason: Flush Stop: 05/02/24 16:58 Tamsulosin HCl (Tamsulosin 0.4 Mg Cap.Er.24h) 0.4 mg PO DAILY [facility] Stop: 05/03/24 08:59 Last Admin: 05/04/23 08:10 Dose: 0.4 mg Triamcinolone Acetonide (Triamcinolone 0.1% Cream 15 Gm Tube) 1 applic TOPICAL QID PRN PRN Reason: Irritation Stop: 05/02/24 17:10 Valsartan (Valsartan 80 Mg Tablet) 80 mg PO DAILY [facility] Stop: 05/03/24 08:59 Last Admin: 05/04/23 08:10 [...] % (Auto) 64.9 Lymph % (Auto) 23.0 Gila % (Auto) 9.9 Eos % (Auto) 1.5 Baso % (Auto) 0.7 Nucleat RBC Rel Count 0.2 Neut # (Auto) 4.6 Lymph # (Auto) 1.6 Gila # (Auto) 0.7 Eos # (Auto) 0.1 [...] MPV Neut % (Auto) Lymph % (Auto) Gila % (Auto) Eos % (Auto) Baso % (Auto) Nucleat RBC Rel Count Neut # (Auto) Lymph # (Auto) Gila # (Auto) Eos # (Auto) Baso # [...] 14 Days Expected Discharge Destination: Home Rehabilitation [facility]: 8.11 Primary Diagnosis: as above Patient?s/Family?s anticipated [...] 24 hour daily monitoring and intervention from Roving Weight Gauger as well as other consulting physicians including internal medicine as well as 24 hour daily delivery assistant nursing - for medical safe / optimal [...] Code(s): I25.10 - Atherosclerotic heart disease of tribal coronary artery without angina pectoris Status: Acute [...] Code(s): I25.10 - Atherosclerotic heart disease of tribal coronary artery without angina pectoris Status: Acute (9) Postoperative pain, acute, hip: Code(s): G89.18 - Other acute postprocedural pain; M25.559 - Pain in unspecified hip Status: Acute Plan 88-year-old male presenting to acute inpatient rehabilitation unit with functional impairments secondary to right hip fracture s/p repair. Hospital course complicated by non-[place] troponin elevation. He was found to have [...] equipment to enhance the patient's a functional sabianist Ensure adequate nutrition and hydration Sleep no issues Pain: Continue current regimen. Discharge planning Home with in 7 to 10 days. I spent greater than 45 minutes for services, including ybbk-yj-rwmv encounter with the patient, discussion of the case, plan of care, and exam; and lifyori-ij-vgtk activities, such as reviewing pertinent labor relations consultant documentation, recent therapy notes, laboratory and radiology studies, and discussion of case with care team including physician, nursing, case technician, and therapists. More than 50 % of time was spent on patient/family counseling or coordination ofcare. Plan: I completed a substantive portion of this encounter, the medical decision makingportion of this note in its entirety, including Allied health note review, nursing note review, labor relations consultant note review, discussion with nursing and case management, and more than 50% of my time was spent on counseling and coordination of care, time spent 70 minutes Patient was personally seen by me, Dr. Medrano, on the day of encounter, within 24 hours of rehab admission, reviewed the history and the relevant portions of the chart, including current orders, allied health and labor relations consultant notes, labs/imaging and performed smyth elements of exam and I formulated the planof care and facilitated the medical decision making. Documented By: Teena Victoria APRN 05/04/23 1 122 Signed By: <Electronically signed by AMADA Victoria> 05/04/23 1209 <Electronically signed by Fredi Medrano MD> 05/05/23 1001 [facility] Work Phone: 1([phone]) 861-438010-23-2023 Progress note Author Ashwini Conrad [facility] May 03, 2023 12:02pm Note Date/Time May 03, 2023 1 1:49am [facility] [address] [place] [address] Orthopedic Progress Note Signed Patient: Ashwini Vickers MR#: [id number] : 1935 Acct:[id number] Age/Sex: 88 / M Adm Date: 3 Loc: Room: [address] [place] [address] Type: ADM IN Attending Dr: Humberto Diaz [...] Code(s): I25.10 - Atherosclerotic heart disease of tribal coronary artery without angina pectoris Status: Acute [...] signed by Ashwini Conrad MD> 05/03/23 1202 [facility] Work Phone: 1(896) 338-672910-22-2023 Progress note Author Sushant Cordon [facility] May 02, 2023 2:35pm Note Date/Time May 02, 2023 2 :35pm [facility] [address] [place] [address] Hospitalist Progress Note Signed Patient: Ashwini Vickers#: [id number] : 1935 Acct:[id number] Age/Sex: 88 / M Adm Date: 3 Loc: 4N Room: [id number] Type: ADM IN Attending Dr: Sushant Cordon [...] mg 04/28/23 17:19 Bisacodyl 10 Mg Supp.Rect DC 04/27/24 17:18 DAILY PRN Constipation Calcium Carbonate [...] Units/3 Ml Insuln.Pen SUBCUT 05/01/24 16:59 TID.WITH.MEALS [facility] Protocol Insulin Glargine 7 units 05/01/23 21:00 [...] <Electronically signed by Sushant Cordon DO> 05/02/23 1431 [facility] Work Phone: 1(480) 602-409310-22-2023 Progress note Author Ashwini Conrad [facility] May 02, 2023 2:12pm Note Date/Time May 02, 2023 2 :12pm [facility] [address] [place] [address] Orthopedic Progress Note Signed Patient: Ashwini Vickers MR#: [id number] : 1935 Acct:[id number] Age/Sex: 88 / M Adm Date: 3 Loc: 4N Room: 1K7813-1 Type: ADM IN Attending Dr: Sushant Cordon [...] MPV Neut % (Auto) Lymph % (Auto) Gila % (Auto) Eos % (Auto) Baso % (Auto) Nucleat RBC Rel Count Neut # (Auto) Lymph # (Auto) Gila # (Auto) Eos # (Auto) Baso # [...] % (Auto) 71.9 Lymph % (Auto) 13.7 Gila % (Auto) 13.5 Eos % (Auto) 0.8 Baso % (Auto) 0.1 Nucleat RBC Rel Count 0.0 Neut # (Auto) 6.2 Lymph # (Auto) 1.2 Gila # (Auto) 1.2 H Eos # (Auto) [...] MPV Neut % (Auto) Lymph % (Auto) Gila % (Auto) Eos % (Auto) Baso % (Auto) Nucleat RBC Rel Count Neut # (Auto) Lymph # (Auto) Gila # (Auto) Eos # (Auto) Baso # (Auto) PHA Creatinine Clear Sodium Potassium Chloride Carbon Dioxide Anion Gap BUN Creatinine Est GFR (CKD-EPI) Glucose POC Glucose 376 POC Glucose Comment Calcium Triglycerides Cholesterol LDL Cholesterol, Calc VLDL Cholesterol HDL Cholesterol Cholesterol/HDL Ratio Assessment / Plan Assessment and plan (1) Two-vessel coronary artery disease: Code(s): I25.10 - Atherosclerotic heart disease of tribal coronary artery without angina pectoris Status: Acute [...] signed by Ashwini Conrad MD> 05/02/23 1412 [facility] Work Phone: 1(658) 529-147910-22-2023 Progress note Author Harsh Del Valle [facility] May 02, 2023 10:49am Note Date/Time May 02, 2023 1 0:49am [facility] [address] [place] [address] Cardiology Progress Note Signed Patient: Ashwini Vickers MR#: [id number] : 1935 Acct:[id number] Age/Sex: 88 / M Adm Date: 3 Loc: 4N Room: [address] [place] [address] Type: ADM IN Attending Dr: Sushant Cordon [...] is to be determined by her primary lockstitch tunnel elastic operator and Dr. Davis Exam Physical Exam Vital [...] MPV Neut % (Auto) Lymph % (Auto) Gila % (Auto) Eos % (Auto) Baso % (Auto) Nucleat RBC Rel Count Neut # (Auto) Lymph # (Auto) Gila # (Auto) Eos # (Auto) Baso # [...] % (Auto) 71.9 Lymph % (Auto) 13.7 Gila % (Auto) 13.5 Eos % (Auto) 0.8 Baso % (Auto) 0.1 Nucleat RBC Rel Count 0.0 Neut # (Auto) 6.2 Lymph # (Auto) 1.2 Gila # (Auto) 1.2 H Eos # (Auto) [...] MPV Neut % (Auto) Lymph % (Auto) Gila % (Auto) Eos % (Auto) Baso % (Auto) Nucleat RBC Rel Count Neut # (Auto) Lymph # (Auto) Gila # (Auto) Eos # (Auto) Baso # [...] Code(s): I25.10 - Atherosclerotic heart disease of tribal coronary artery without angina pectoris Status: Acute [...] intervention Documented By: Harsh Del Valle MD, [facility] 3 1047 Signed By: <Electronically signed by MD CHESTER Harsh Del aVlle> 05/02/23 1049 [facility] Work Phone: 1(300) 509-441810-21-2023 Progress note Author Sushant Cordon [facility] May 01, 2023 3:13pm Note Date/Time May 01, 2023 3 :09pm [facility] [address] [place] [address] Hospitalist Progress Note Signed Patient: Ashwini Vickers MR#: [id number] : 1935 Acct:[id number] Age/Sex: 88 / M Adm Date: 3 Loc: N Room: 1Q8353-2 Type: ADM IN Attending Dr: Sushant Cordon [...] mg 04/28/23 17:19 Bisacodyl 10 Mg Supp.Rect DC 04/27/24 17:18 DAILY PRN Constipation Calcium Carbonate [...] Insuln.Pen SUBCUT 04/27/24 21:59 Not Given TID.WM.HS [facility] Protocol Insulin Glargine 7 units 05/01/23 21:00 Insulin Glargine 300 Units/3 Ml Insuln.Pen SUBCUT 04/30/24 20:59 BID [facility] Lidocaine HCl 0.1 ml 04/29/23 01:31 Lidocaine [...] signed by Sushant Cordon DO> 05/01/23 1513 [facility] Work Phone: 1(113) 923-310210-21-2023 Progress note Author Harsh Del Valle [facility] May 01, 2023 12:24pm Note Date/Time May 01, 2023 1 2:21pm [facility] [address] [place] [address] Cardiology Progress Note Signed Patient: Ashwini Vickers MR#: [id number] : 1935 Acct:[id number] Age/Sex: 88 / M Adm Date: 3 Loc: 4N Room: 6R9902-5 Type: ADM IN Attending Dr: Sushant Cordon [...] MPV Neut % (Auto) Lymph % (Auto) Gila % (Auto) Eos % (Auto) Baso % (Auto) Nucleat RBC Rel Count Neut # (Auto) Lymph # (Auto) Gila # (Auto) Eos # (Auto) Baso # [...] MPV Neut % (Auto) Lymph % (Auto) Gila % (Auto) Eos % (Auto) Baso % (Auto) Nucleat RBC Rel Count Neut # (Auto) Lymph # (Auto) Gila # (Auto) Eos # (Auto) Baso # [...] MPV Neut % (Auto) Lymph % (Auto) Gila % (Auto) Eos % (Auto) Baso % (Auto) Nucleat RBC Rel Count Neut # (Auto) Lymph # (Auto) Gila # (Auto) Eos # (Auto) Baso # [...] MPV Neut % (Auto) Lymph % (Auto) Gila % (Auto) Eos % (Auto) Baso % (Auto) Nucleat RBC Rel Count Neut # (Auto) Lymph # (Auto) Gila # (Auto) Eos # (Auto) Baso # [...] % (Auto) 68.2 Lymph % (Auto) 16.8 Gila % (Auto) 14.1 Eos % (Auto) 0.6 Baso % (Auto) 0.3 Nucleat RBC Rel Count 0.1 Neut # (Auto) 6.0 Lymph # (Auto) 1.5 Gila # (Auto) 1.2 H Eos # (Auto) [...] MPV Neut % (Auto) Lymph % (Auto) Gila % (Auto) Eos % (Auto) Baso % (Auto) Nucleat RBC Rel Count Neut # (Auto) Lymph # (Auto) Gila # (Auto) Eos # (Auto) Baso # [...] Code(s): I25.10 - Atherosclerotic heart disease of tribal coronary artery without angina pectoris Status: Acute [...] intervention Documented By: Harsh Del Valle MD, [facility] 3 1220 Signed By: <Electronically signed by [facility] Harsh Del Valle> 05/01/23 1224 [facility] Work Phone: 1(584) 489-846410-21-2023 Progress note Author Ashwini Conrad [facility] May 01, 2023 11:31am Note Date/Time May 01, 2023 1 1:31am [facility] [address] [place] [address] Orthopedic Progress Note Signed Patient: Ashwini Vickers MR#: [id number] : 1935 Acct:[id number] Age/Sex: 88 / M Adm Date: 3 Loc: N Room: 7J6410-9 Type: ADM IN Attending Dr: Sushant Cordon [...] % (Auto) 79.2 Lymph % (Auto) 5.9 Gila % (Auto) 14.6 Eos % (Auto) 0.0 Baso % (Auto) 0.3 Nucleat RBC Rel Count 0.1 Neut # (Auto) 7.4 Lymph # (Auto) 0.6 L Gila # (Auto) 1.4 H Eos # (Auto) [...] MPV Neut % (Auto) Lymph % (Auto) Gila % (Auto) Eos % (Auto) Baso % (Auto) Nucleat RBC Rel Count Neut # (Auto) Lymph # (Auto) Gila # (Auto) Eos # (Auto) Baso # [...] MPV Neut % (Auto) Lymph % (Auto) Gila % (Auto) Eos % (Auto) Baso % (Auto) Nucleat RBC Rel Count Neut # (Auto) Lymph # (Auto) Gila # (Auto) Eos # (Auto) Baso # [...] MPV Neut % (Auto) Lymph % (Auto) Gila % (Auto) Eos % (Auto) Baso % (Auto) Nucleat RBC Rel Count Neut # (Auto) Lymph # (Auto) Gila # (Auto) Eos # (Auto) Baso # [...] MPV Neut % (Auto) Lymph % (Auto) Gila % (Auto) Eos % (Auto) Baso % (Auto) Nucleat RBC Rel Count Neut # (Auto) Lymph # (Auto) Gila # (Auto) Eos # (Auto) Baso # [...] % (Auto) 68.2 Lymph % (Auto) 16.8 Gila % (Auto) 14.1 Eos % (Auto) 0.6 Baso % (Auto) 0.3 Nucleat RBC Rel Count 0.1 Neut # (Auto) 6.0 Lymph # (Auto) 1.5 Gila # (Auto) 1.2 H Eos # (Auto) [...] MPV Neut % (Auto) Lymph % (Auto) Gila % (Auto) Eos % (Auto) Baso % (Auto) Nucleat RBC Rel Count Neut # (Auto) Lymph # (Auto) Gila # (Auto) Eos # (Auto) Baso # [...] Code(s): I25.10 - Atherosclerotic heart disease of tribal coronary artery without angina pectoris Status: Acute [...] signed by Ashwini Conrad MD> 05/01/23 1131 [facility] Work Phone: 1(436) 270-575010-20-2023 Progress note Author Sushant Cordon [facility] April 30, 2023 9:13pm Note Date/Time April 30, 2023 9 :13pm [facility] [address] [place] [address] Hospitalist Progress Note Signed Patient: Ashwnii Vickers MR#: [id number] : 1935 Acct:[id number] Age/Sex: 88 / M Adm Date: 3 Loc: Room: [address] [place] [address] Type: ADM IN Attending Dr: Sushant Cordon [...] mg 04/28/23 17:19 Bisacodyl 10 Mg Supp.Rect DC 04/27/24 17:18 DAILY PRN Constipation Calcium Carbonate [...] Mg/0.4 Ml Syringe SUBCUT 04/30/24 09:59 DAILY@1000 [facility] Glucose 0 gm 04/28/23 17:14 04/30/23 08:42 [...] Lactated Ringers IV 04/29/24 16:44 Not Given .[id number] TAVIA Cefazolin Sodium 1 gm in 50 [...] Tablet PO 04/28/24 08:59 Not Given DAILY [facility] Potassium Chloride 40 meq 04/30/23 07:00 Potassium [...] <Electronically signed by Sushant Cordon DO> 04/30/232112 [facility] Work Phone: 1(959) 850-184910-20-2023 Hospital Discharge instructions Additional Instructions Rehab to [...] high armed straight-backed chair. -May use toilet speech pathology supervisor on commode. -Continue to use walker or [...] OTHER -Any problems- Call the office at [phone] or return to Emergency Room. -If you are having excessive or persistent pain, swelling, fever (oral temp >101), yellow-green foul smelling drainage or bleeding from incision, excessive redness of incision, nausea, vomiting, or any other problems, you should first call your surgeon at [phone] for advice. If you are unable to contact your surgeon, seek help from a hospital emergency room. FOLLOW UP -Call my office the first business day after discharge and ask for assistance with post-discharge plans, and appointments.[facility] Work Phone: 1(958) 994-304810-20-2023 Progress note Author Anat Perez [facility] April 30, 2023 10:32am Note Date/Time April 30, 2023 1 0:32am [facility] [address] [place] [address] Cardiology Progress Note Signed Patient: Ashwiin Vickers MR#: [id number] : 1935 Acct:[id number] Age/Sex: 88 / M Adm Date: 3 Loc: Room: [address] [place] [address] Type: ADM IN Attending Dr: Sushant Cordon [...] events overnight. Denies chest pain or dyspnea. [facility] scheduled for this AM (findings as [...] MPV Neut % (Auto) Lymph % (Auto) Gila % (Auto) Eos % (Auto) Baso % (Auto) Nucleat RBC Rel Count Neut # (Auto) Lymph # (Auto) Gila # (Auto) Eos # (Auto) Baso # [...] MPV Neut % (Auto) Lymph % (Auto) Gila % (Auto) Eos % (Auto) Baso % (Auto) Nucleat RBC Rel Count Neut # (Auto) Lymph # (Auto) Gila # (Auto) Eos # (Auto) Baso # [...] % (Auto) 60.6 Lymph % (Auto) 22.0 Gila % (Auto) 16.4 Eos % (Auto) 0.6 Baso % (Auto) 0.4 Nucleat RBC Rel Count 0.1 Neut # (Auto) 5.4 Lymph # (Auto) 2.0 Gila # (Auto) 1.5 H Eos # (Auto) [...] MPV Neut % (Auto) Lymph % (Auto) Gila % (Auto) Eos % (Auto) Baso % (Auto) Nucleat RBC Rel Count Neut # (Auto) Lymph # (Auto) Gila # (Auto) Eos # (Auto) Baso # [...] MPV Neut % (Auto) Lymph % (Auto) Gila % (Auto) Eos % (Auto) Baso % (Auto) Nucleat RBC Rel Count Neut # (Auto) Lymph # (Auto) Gila # (Auto) Eos # (Auto) Baso # [...] Dizziness/syncope due to recurrent hypoglycemia Recommendations: - [facility] this am is significant for two-vessel coronary artery disease- 100% prox LAD occlusion; 80% D1; LCx has 50% prox stenosis with 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 - Discussed with healthcare advisory services manager- Dr Davis regarding timing of intervention- given that pt did not have IN on presentation and was very functional prior [...] signed by Anat Perez MD> 04/30/23 1032 [facility] Work Phone: 1(504) 454-877610-20-2023 [facility] Progress note Author Sushant Cordon [facility] April 29, 2023 6:28pm Note Date/Time April 29, 2023 6 :28pm [facility] [address] [place] [address] Hospitalist Progress Note Signed Patient: Ashwini Vickers MR#: [id number] : 1935 Acct:[id number] Age/Sex: 88 / M Adm Date: 3 Loc: N Room: [address] [place] [address] Type: ADM IN Attending Dr: Sushant Cordon [...] mg 04/28/23 17:19 Bisacodyl 10 Mg Supp.Rect DC 04/27/24 17:18 DAILY PRN Constipation Calcium Carbonate [...] Dextrose-Lactated Ringers IV 04/27/24 17:14 125 mls/hr .[id number] TAVIA Administration Lactated Ringer's 1,000 mls @ [...] <Electronically signed by Sushant Cordon DO> 04/29/231827 [facility] Work Phone: 1(851) 875-338610-19-2023 Consult note Author Anat Perez [facility] April 29, 2023 5:34pm Note Date/Time April 29, 2023 5 :07pm [facility] [address] [place] [address] Cardiology Consult Note Signed Patient: Ashwini Vickers MR#: [id number] : 1935 Acct:[id number] Age/Sex: 88 / M Adm Date: 3 Loc: 4N Room: [address] [place] [address] Type: ADM IN Attending Dr: Sushant Cordon [...] negative unless noted below or in HPI [facility] Medical History (Updated 04/29/23 @ 17:34 by [...] unit subcut HS 04/28/23 [History Confirmed 04/28/23] saxvvx-hievjxcx-yhydylr 24,000-76,000-120,000 unit capsule,delayed rel (Creon) 2cap PO [...] x10E3/uL Lymph # (Auto) 2.0 (1.00-4.8) x10E3/uL Gila # (Auto) 1.1 H (0.0-0.8) x10E3/uL Eos [...] ,000 ml @ 125 mls/hr IV .Q8H [facility] Rx#:[id number] Oral 0 / 0 0 / 0 [...] disease) prior to surgery. -Will plan for [facility] tomorrow for further evaluation/risk stratification. NPO past midnight. Documented By: Anat Perez MD 04/29/23 1704 Signed By: <Electronically signed by Anat Perez MD> 04/29/23 5856 [facility] Work Phone: 1(479) 857-834710-18-2023 Consult note Author Ashwini Conrad [facility] April 28, 2023 6:47pm Note Date/Time April 28, 2023 6 :43pm [facility] [address] [place] [address] Orthopedic Consult Note Signed Patient: Ashwini Vickers MR#: [id number] : 1935 Acct:[id number] Age/Sex: 88 / M Adm Date: 3 Loc: 4N Room: [address] [place] [address] Type: ADM IN Attending Dr: Sushant Cordon [...] negative unless noted below or in HPI [facility] Medical History (Updated 04/28/23 @ 17:35 by [...] unit subcut HS 04/28/23 [History Confirmed 04/28/23] ovowdb-qytzytho-yzvgcxb 24,000-76,000-120,000 unit capsule,delayed rel (Creon) 2cap PO [...] Appearance Clear, Urine pH 6.5, Ur Specific [place] 1.009, Urine Protein Negative, Urine Glucose (UA) [...] % (Auto) 75.0, Lymph % (Auto) 14.8, Gila % (Auto) 9.3, Eos % (Auto) 0.5, Baso % (Auto) 0.4, Nucleat RBC Rel Count 0.1, Neut # (Auto) 7.3, Lymph # (Auto) 1.4, Gila # (Auto) 0.9 H, Eos # (Auto) 0.0, Baso # (Auto) 0.0, Monocyte Dist Width 18.61 H & H 04/28/23 Range/Units 13:20 Hgb 11.5 L (13.0-17.0) g/dL Hct 34.8 L (38.8-50.0) % Coagulation 04/28/23 Range/Units 13:20 INR 1.0 All other labs are normal. Imaging & Diagnostic Results Imaging/Diagnostics: XRAY ([facility] 04/28/2023) Right FEMUR/RIGHT HIP/PELVIS: AP of the [...] signed by Ashwini Conrad MD> 04/28/23 1847 [facility] Work Phone: 1(101) 495-400010-18-2023 History and physical note Author Sushant Cordon [facility] April 28, 2023 5:40pm Note Date/Time April 28, 2023 5 :40pm [facility] [address] [place] [address] Hospitalist H&P Signed Patient: Ashwini Vickers MR#: [id number] : 1935 Acct:[id number] Age/Sex: 88 / M Adm Date: 3 Loc: Room: [address] [place] [address] Type: ADM IN Attending Dr: Sushant Cordon [...] 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 This was done [...] had what sounds like an EGD in [place] about 15 months ago with what sounds like some gastritis. Otherwise his past medical history seems to include prostate hypertrophy. Social history: He does smoke a cigar daily after dinner. In the past he smoked0.25 of a pack per day of cigarettes. He does drink wine daily with dinner. Heis mainly retired from [employer] here in [place]. He has continued to do other jobsever since his correction. Family history: A sister of an unspecified cancer. Another sibling ofwhat sounds like acute leukemia. Review of Systems Review of Systems Review of systems: 10 systems are reviewed and are negative except as mentioned elsewhere in the documentation. [facility] Medical History (Updated 10/18/23 @ 17:35 by [...] unit subcut HS 04/28/23 [History Confirmed 04/28/23] xisrlj-jpsmwccc-vtatocj 24,000-76,000-120,000 unit capsule,delayed rel (Creon) 2cap PO [...] % (Auto) 14.8 % (.) 04/28/23 13:20 Gila % (Auto) 9.3 % (.) 04/28/23 13:20 Eos % (Auto) 0.5 % (.) 04/28/23 13:20 Baso % (Auto) 0.4 % (.) 04/28/23 13:20 Nucleat RBC Rel Count 0.1 /100 WBC (0-0.5) 04/28/23 13:20 Neut # (Auto) 7.3 x10E3/uL (1.8-7.7) 04/28/23 13:20 Lymph # (Auto) 1.4 x10E3/uL (1.00-4.8) 04/28/23 13:20 Gila # (Auto) 0.9 x10E3/uL (0.0-0.8) H 04/28/23 [...] pH 6.5 (5.0-9.0) 04/28/23 15:00 Ur Specific [place] 1.009 (1.001-1.030) 04/28/23 15:00 Urine Protein Negative [...] did order an echocardiogram but the echocardiogram engineering laboratory technician has likely gone home for the [...] signed by Sushant Cordon, > 04/28/23 1740 [facility] Work Phone: 1(137) 135-559706-29-2022 History of Present illness Narrative* Courtney Singh - 01/07/2022 12:25 PM EDT CLINICAL PHARMACY NOTE: MEDS TO BEDS Total # of Prescriptions Filled: 3 The following medications were delivered to the patient: Sucralfate susp Amlodipine Pantoprazole Additional Documentation: Pharmacy dispensed all we had of the Sucralfate susp- will transfer the rest to the [facility] in [place], [place] $8.61 collected via clover * Jose [...] 10. home pump insulin 11. PT/OT SUBJECTIVE Ashwini Vickers seen and examined at bedside. AF, [...] 01/03/2022 3:25 PM EDT Occupational Therapy Facility/Department: [address] Occupational Therapy Initial Assessment Name: Ashwini Vickers : 1935 Date of Service: 01/03/2022 Chief Complaint Patient presents with Abdominal Pain ulcer Discharge Recommendations: Patient would benefit from continued therapy after discharge OT Equipment Recommendations Equipment Needed: Yes Mobility Devices: ADL Assistive Devices ADL Assistive Devices: Learning And Development Consultant;Long-handled Sponge;Long-handled Shoe Horn;Sock- Aid Hard;Grab Bars -shower [...] Ambulation Assistance: Independent Transfer Assistance: Independent Active Retail Associate: Yes Mode of Transportation: [facility] Occupation: Retired Type of Occupation: Reports he has retired 4-5 times. Works on [employer] sometimes now debo wants. [employer]. Use to work for [employer]. Leisure & [...] 01/03/2022 12:40 PM EDT Physical Therapy Facility/Department: [address] [facility] Physical Therapy Initial Assessment Name: Ashwini Vickers [...] Ambulation Assistance: Independent Transfer Assistance: Independent Active Retail Associate: Yes Mode of Transportation: SUV Occupation: Retired Type of Occupation: Reports he has retired 4-5 times. 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 Pt did not have any belongings transferred with him from the OR. documented in this encounterBON HONORHEALTH SCOTTSD[facility] OSBORN MEDICAL CENTERKhipu Systems [facility] [employer] Work Phone: consult note Author Tru Briceno [facility] May 03, 2023 3:17pm Note Date/Time May 03, 2023 2 :59pm [facility] [address] [place] [address] Physiatry (Rehab) Consult Note Signed Patient: Ashwini Vickers MR#: [id number] : 1935 Acct:[id number] Age/Sex: 88 / M Adm Date: 3 Loc: 4N Room: [address] [place] [address] Type: ADM IN Attending Dr: Humberto Diaz [...] negative unless noted below or in HPI [facility] Medical History BPH (benign prostatic hyperplasia) Diabetes [...] unit subcut HS 04/28/23 [History Confirmed 04/28/23] qvnlps-mbxcisme-tanklby 24,000-76,000-120,000 unit capsule,delayed rel (Creon) 2cap PO [...] bisacodyl 10 mg rectal suppository 10 mg DC DAILY PRN Constipation #0 ea 05/03/23 [Rx] [...] Code(s): I25.10 - Atherosclerotic heart disease of tribal coronary artery without angina pectoris Status: Acute [...] at least 3 times weekly encounters with sash repairer for medical management and for plan of care review / changes. Plan: I completed a substantive portion of this encounter, the medical decision making portion of this note in its entirety, including Allied health note review, nursing note review, labor relations consultant note review, discussion with nursing and case management, and more than 50% of my time was spent on counseling and coordination of care, time spent 65 minutes Patient was personally seen by me, Dr. Briceno, on the day of encounter, reviewed the history and the relevant portions of the chart, including current orders, allied health and labor relations consultant notes, labs/imaging and performed smyth elements of exam and I formulated the plan of care and facilitated the medical decision making. Documented By: Tru Briceno MD 05/03/23 1455 Signed By: <Electronically signed by Tru Briceno MD> 05/03/23 7707 [facility] Work Phone: Discharge summary Author Humberto Diaz [facility] May 03, 2023 2:54pm Note Date/Time May 03, 2023 2 :39pm [facility] [address] [place] [address] Discharge Summary Signed Patient: Ashwiin Vickers MR#: [id number] : 1935 Acct:[id number] Age/Sex: 88 / M Adm Date: 3 Loc: Room: [address] [place] [address]: Humberto Diaz MD Copies to: [...] Discharge Plan Discharge Plan Patient Disposition: Rehab [facility] Diet: Diabetic Additional Instructions: Rehab to manage: [...] high armed straight-backed chair. -May use toilet speech pathology supervisor on commode. -Continue to use walker or [...] OTHER -Any problems- Call the office at [phone] or return to Emergency Room. -If you are having excessive or persistent pain, swelling, fever (oral temp >101), yellow-green foul smelling drainage or bleeding from incision, excessive redness of incision, nausea, vomiting, or any other problems, you should first call your surgeon at [phone] for advice. If you are unable to [...] 0RF bisacodyl 10 mg Suppository 10 mg DC DAILY PRN (Reason: Constipation) Qty: 0 0RF [...] (call at discharge from Rehab to see Industrial Coffee Grinder for future ANGIOPLASTY PROCEDURE) Marie Castro DO [Primary Care Provider] - (Please call to schedule a follow up appointment with PCP upon discharge from Rehab.) Ashwini Conrda MD [Active Staff] - (2-3 weeks from DC from rehab/ hospital) Anat Perez MD [Active Staff] - (Please call to schedule a follow up appointment upon discharge from Rehab.) Documented By: Humberto Diaz MD 05/03/23 1437 Signed By: <Electronically signed by Humberto Diaz MD> 05/03/23 3081 [facility] Work Phone: Evaluation note* Diagnosis Perforated viscus- [...] or unspecified documented in this encounter [facility] Work Phone: evaluation note* Diagnosis Onset Date Resolution Status Abnormal EKG acute Closed intertrochanteric fracture of right hip acute Elevated troponin acute [facility] Work Phone: Evaluation note* Diagnosis Onset Date Resolution Status Abnormal EKG acute Closed intertrochanteric fracture of right hip acute Diabetes acute Elevated troponin acute Impaired mobility and activities of daily living acute Mild left ventricular systolic dysfunction (LVSD) acute Nonsustained monomorphic ventricular tachycardia acute Postoperative pain, acute, hip acute Two-vessel coronary artery disease acute [facility] Work Phone: Evaluation note* Diagnosis Onset Date [...] artery disease acute Uncontrolled diabetes mellitus acute [facility] Work Phone: Evaluation note* Diagnosis NSTEMI (non-ST elevated myocardial infarction) ([facility])- Primary Acute myocardial infarction, subendocardial infarction, episode of care unspecified Abnormal stress test Other nonspecific abnormal cardiovascular system function study ASHD (arteriosclerotic heart disease) Coronary atherosclerosis of unspecified type of vessel, tribal or graft Essential hypertension Unspecified essential hypertension Diabetes mellitus type II, non insulin dependent ([facility]) Type II or unspecified type diabetes mellitus without mention of complication, not stated as uncontrolled Closed fracture of right hip, initial encounter ([facility]) documented in this encounter [facility] Work Phone: Evaluation noteNo InformationNortSCI-[facility] [employer] Other Evaluation note* Diagnosis Onset Date Resolution Status Diabetes acute CAD (coronary artery disease) acute Diabetes acute [facility] Work Phone: Evaluation note* Diagnosis Cardiomyopathy, ischemic- Primary Other specified forms of chronic ischemic heart disease ASHD (arteriosclerotic heart disease) Coronary atherosclerosis of unspecified type of vessel, tribal or graft BMI 20.0-20.9, adult Orthopnea documented in this encounter [facility] Work Phone: History general Narrative - Reported* Type Description Date Medical History stage 1 diabetes Surgical History pancreas and spleen removal Surgical History back surgery Surgical History tonsilectomy Surgical History HIP TFN Short 2022 Alerts Other Hospital Discharge instructions* Instructions* Viki Donovan [...] scheduled appointment, please call the office at [phone]. Call Your Doctor If Any of the [...] through Care Everywhere. * Surgical Drain Care (Malay) documented in this encounterB[facility] [employer] Work Phone: Hospital Discharge instructions Additional Instructions [...] -Dietary supplement: Glucerna 1 container twice a day.[facility] Work Phone: Hospital Discharge instructions Additional Instructions [...] doctor or pharmacist, without first calling the lockstitch tunnel elastic operator who implanted the stent. If you require [...] weight lifting, stair steppers, etc. until the lockstitch tunnel elastic operator approves these activities. Check with the lockstitch tunnel elastic operator on your first follow-up visit. CALL YOUR PHYSICIAN at [phone]: -If bleeding should occur from the catheter insertion site- apply pressure to the site then immediately call us. -Report any fever, redness, drainage, increased swelling, or firmness at the catheter insertion site. Some bruising or slight swelling may be present at the time of discharge. -Should arm or leg become cold, numb, white, or blue, contact the lockstitch tunnel elastic operator immediately. -IF you should experience episodes of [...] is recommended. Please call Central Scheduling at [phone] to schedule your appointment.] The attending lockstitch tunnel elastic operator or [facility] nurse clinician should provide you with specific instructions regarding activity, diet, medications, and further follow up for you. Follow the medication instructions provided on your discharge. If the dosages and instructions on this sheet differ from the dosage and instructions on the bottle, follow the instructions on the bottle. [facility] is not responsible for incorrect prescription information provided by the patient during their visit. Do not stop your medications without consulting your health care provider. Please take the list with you to your next doctor's appointment.[facility] Work Phone: Reason for referral (narrative)* Consultation (Routine) - Authorized Specialty Diagnoses / Procedures Referred By Contac t Referred To Contact Cardiology Diagnoses Abnormal stress test ASHD (arteriosclerotic heart disease) NSTEMI (non-ST elevated myocardial infarction) ([facility]/HCC) Procedures Follow Up In Cardiology Adrián Davis, DO [address] [facility], [address] [place] [id number] Adrián Davis, DO [address] [facility], [address] [place] [address] Referral ID Status Reason Start Date Expiration Date V isits Requested Visits Authorized [id number] Authorized 05/25/2023 05/24/2024 1 1 * Cardiovascular (Routine) - Pending Review Specialty Diagnoses / Procedures Referred By Contac t Referred To Contact Diagnoses Abnormal stress test ASHD (arteriosclerotic heart disease) Procedures ECG 12 Lead Adrián Davis, DO [address] [facility], [address] [address] Referral ID Status Reason Start Date Expiration Date V isits Requested Visits Authorized [id number] Pending Review 05/25/2023 05/24/2024 1 1 [facility] Work Phone: Summary Purpose Family History No Family History Records Found Relationship Condition Age at Onset Recorded Date/T mdaelyn brother Malignant neoplasm Unknown natural son Sarcoma [...] section and content) DATE CREATED AUTHOR 06/25/2018 [facility] DATE CREATED AUTHOR AUTHOR'S ORGANIZ ATION 06/21/2019 [facility] DATE CREATED AUTHOR AUTHOR'S ORGANIZ ATION 01/29/[address] [facility] DATE CREATED AUTHOR AUTHOR'S ORGANIZ ATION 06/11/2022 [facility] DATE CREATED AUTHOR AUTHOR'S ORGANIZ ATION 05/31/2023 [facility] DATE CREATED AUTHOR AUTHOR'S ORGANIZ ATION 06/12/2023 [facility] DATE CREATED AUTHOR AUTHOR'S ORGANIZ ATION 07/02/2023 [facility] DATE CREATED AUTHOR AUTHOR'S ORGANIZ ATION 08/16/2023 [facility] DATE CREATED AUTHOR AUTHOR'S ORGANIZ ATION 08/20/2023 [facility] Reason for Visit (unrecogniz ed section and content) Reason Comments Abdominal Pain ulcer Specialty Diagnoses / Procedures Referred By Contac t Referred To Contact Diagnoses Acute gastric ulcer with perforation (HCC) Perforated viscus Paul Conn, DO [address] [address] [facility] [address] [place] [address] Referral ID Status Reason Start Date Expiration Date Visits Re quested Visits Authorized [id number] 1 1 Reason Comments Hospital Follow-up [facility] 05/08/2023 Specialty Diagnoses / Procedures Referred By Contac t Referred To Contact Diagnoses Abnormal stress test ASHD (arteriosclerotic heart disease) Procedures ECG 12 Lead Adrián Davis, DO [address] [facility], [facility] [address] [place] [address] Referral ID Status Reason Start Date Expiration Date V isits Requested Visits Authorized [id number] Pending Review 05/25/2023 05/24/2024 1 1 Reason Comments Follow-up PCI Specialty Diagnoses / Procedures Referred By Contac t Referred To Contact Cardiology Diagnoses ASHD (arteriosclerotic heart disease) Procedures Follow Up In Cardiology Sammy Wolff, LOG HANDLING EQUIPMENT OPERATOR-PIPE STEM ALIGNER [address] [facility], [address] [place] [address] Referral ID Status Reason Start Date Expiration Date V isits Requested Visits Authorized [id number] Authorized 06/23/2023 06/22/2024 1 1 Ordered Prescriptions [...] took at home)0942 (Not Given - Provider: Balijt Sage RN - Reason: Order parameters not [...] Baljit Sage RN)1159 (Stopped - Provider: Baljit Sage, KARIN)1655 (New Bag - Provider: Baljit Sage, [...] Active Tru Briceno MD Other Provider Active Air Liaison And Special Staff Relationship Specialty Start Date End Date Marie Castro [facility] [address] [place] [address] PCP - General Internal Medicine 01/07/22 Team [...] MD Other Provider Active Vivian Zavala , LOG HANDLING EQUIPMENT OPERATOR Other Provider Active Samantha Wilson , DO Other Provider Active Eric Major MD Other Provider Active Sushant Cordon , DO Other Provider Active Audi Gaming MD Other Provider Active Cecily Keen MD Other Provider Active Nidia Wright , LOG HANDLING EQUIPMENT OPERATOR Other Provider Active Daniel Reyes MD Other Provider Active Roberto Sevilla MD Other Provider Active Humberto Diaz MD Other Provider Active Marzena Otto MD Other Provider Active Gray Gilliam , DO Other Provider Active Mc Cornejo MD Other Provider Active Raymundo Angeles MD Other Provider Active Marga Mccauley , REGISTERED NURSE MATERNAL CHILD-C Other Provider Active Indra Guillory MD Other Provider Active David Fonseca MD Other Provider Active Hai Aguilera MD Other Provider Active Esau Corrales MD Other Provider Active Leda Julian , DO Other Provider Active Guevara Mills , DO Other Provider Active Jose Roberto Felder , DO Other Provider Active Anat Marte LOG HANDLING EQUIPMENT OPERATOR Other Provider Active Warren Gross , DO Other Provider Active Nayeli Jmienez MD Other Provider Active Nicole Wolff LOG HANDLING EQUIPMENT OPERATOR Other Provider Active Melisa Pimentel , LOG HANDLING EQUIPMENT OPERATOR Other Provider Active Vidya Robert MD Other Provider Active Howard Burrell MD Other Provider Active Immanuel John , DO Other Provider Active Rosario Murdock APRN Other Provider Active Mauricio Drake , DO Other Provider Active Erma Morillo , KARIN Other Provider Active Air Liaison And Special Staff Relationship Specialty Start Date End Date Marie Castro, DO [address] [place] [address] PCP - General Internal Medicine 05/18/23 Team [...] Active Herminio Lakhani MD Attending Provider Active [employer] Liaison And Special Staff Relationship Specialty Start Date End Date Marie Castro DO [address] [facility] [address] [place] [address] PCP - General Internal Medicine 05/18/23 FOR [...] BE BASED ON THE PRIMARY CLINICAL RECORDS. [facility]. provides no warranty or guarantee of the accuracy or completeness of information in this document.
[2023-08-21 16:25] LABS: Glucometer 235 mg/dL (74-106)
[2023-08-21] MEDS: ENOXAPARIN SODIUM 40 MG/0.4 ML SYRINGE SUBQ (17:44)
[2023-08-21] MEDS: INSULIN ASPART 300 UNIT/3 ML PEN SUBQ ×2 (17:45→21:50)
[2023-08-21] MEDS: DEXTROSE 5 %-0.45 % SOD CHLORD 1,000 ML 100 ML IV (17:55)
--- OUTSIDE RECORDS SUMMARY | 2023-08-21 18:09 | XMS_ITS | CCD ---
Author Name Unknown Address [address] [facility] [address] [place] [address] Organization [facility] Care Team Providers Care Operating Systems Programmer Name Role Phone MARINO CASTILLO Unavailable Unavailable MARIE CASTRO Unavailable Unavailab MARINO Merlos Unavailable Unavailable MARINO CASTILLO Unavailable Unavailable MARINO CASTILLO Unavailable Unavailable MARINO CASTILLO Unavailable Unavailable MARINO CASTILLO Unavailable Unavailable MARIE JULIAN ([facility]) Unavailable Unavailable MARIE CASTRO Unavailable Unavailab Marie Santoyo Primary Care Provider PAUL CONN Admitting Unavailable PAUL CONN Attending Unavailable DUNCAN FRANCIS Consulting Unavailable MARIE CASTRO Primary Care Unavailable JOSE A, DR FRANCO Primary Care Unavailable KESHA DOBSON Admitting Unavailable KESHA DOBSON Attending Unavailable KESHA DOBSON Consulting Unavailable ROLA HOLCOMB Unavailable MATTHEW, DR SALAZAR Admitting Unavailable MATTHEW, DR SALAZAR Attending Unavailable [facility], DR CHANEY Primary Care Unavailable MATTHEW, DR SALAZAR Consulting Unavailable MATTHEW, DR SALAZAR Admitting Unavailable MATTHEW, DR SALAZAR Attending Unavailable DR SALVADOR NARANJO Primary Care Unavailable DR MARIE CASTRO Consulting Unavailable DO Marie Castro Primary Care Provider JO Rivas Emergency Provider DO Sushant Cordon Admit Provider [phone] DO Sushant Cordon Attending Provider [phone] MD Ashwini Conrad Other Provider MD Chuck [...] Other Provider MD Cecily Keen Other Provider AMADA Wright Other Provider MD Daniel Reyes Other Provider MD Roberto Sevilla Other Provider MD Humberto Diaz Other Provider MD Marzena Otto Other Provider DO Gray Gilliam Other Provider MD Mc Cornejo Other Provider MD Raymundo Angeles Other Provider MARYANN Mccauley Other Provider [phone] MD Indra Guillory Other Provider MD David Fonseca Other Provider MD Hai Aguilera Other Provider MD Esau Corrales Other Provider DO Leda Julian Other Provider DO Guevara Mills Other Provider DO Kira Felderony Guille Other Provider AMADA Marte Other Provider DO Warren Gross Other Provider MD Nayeli Jimenez Other Provider AMADA Wolff Other Provider AMADA Pimentel Other Provider MD Vidya Robert Other Provider MD Howard Burrell Other Provider DO Immanuel John Other Provider AMADA Murdock Other Provider [phone] DO Vidal Yadontae Other Provider KARIN Morillo Other Provider Unavailable Ashwini Conrad Unavailable Marie Castro DO Primary Care Provider MARIE CASTRO Referring Unavailable MARIE CASTRO Attending Unavailable MARIE CASTRO Referring Unavailable DO Marie Castro Primary Care Provider JO Rivas Emergency Provider [phone] DO Sushant Cordon Admit Provider MD Ashwini Conrad Other Provider MD Chuck Velasco Other Provider [phone] MD Anat Perez Other Provider MD Humberto [...] Other Provider MD Cecily Keen Other Provider AMADA Wright Other Provider MD Daniel Reyes Other Provider MD Roberto Sevilla Other Provider MD Humberto Diaz Other Provider MD Marzena Otto Other Provider DO Gray Gilliam Other Provider [phone] MD Mc Cornejo Other Provider MD Raymundo Angeles Other Provider MARYANN Mccauley Other Provider [phone] MD Indra Guillory Other Provider MD David Fonseca Other Provider MD Hai Aguilera Other Provider MD Esau Corrales Other Provider DO Leda Julian Other Provider DO Guevara Mills Other Provider DO Jose Roberto Felder Other Provider AMADA Marte Other Provider DO Warren Gross Other Provider MD Nayeli Jimenez Other Provider AMADA Wolff Other Provider [phone] AMADA Pimentel Other Provider MD Vidya Robert Other Provider MD Howard Burrell Other Provider DO Immanuel John Other Provider [phone] AMADA Murdock Other Provider DO Mauricio Drake Other Provider KARIN Morillo Other Provider Unavailable MD Ashwini Conrad Attending Provider [phone] PROVIDER, UNKNOWN Attending Unavailable PROVIDER, UNKNOWN Admitting [...] Consulting Unavailable Fredi Medrano [facility] Un[facility] Lois Rios Consulting Unavailable [...] Unavailable Esau Corrales Consulting Unavailable Leda Julian Consulting Unavailable Guevara Mills Consulting Unavailable Jose Roberto Felder Consulting Unavailable ObAnat vallejo Consulting Unavailable Warren Gross Consulting Unavailable DaromarNayeli Consulting Unavailable Nicole Wolff Consulting Unavailable Melisa Pimentel Consulting Unavailable Yesica Alanaomie Consulting Unavailable Howard Burrell Consulting Unavailable [...] on 01/04/22 at 1500, Until Discontinued amylase 763609 unt / lipase 21971 unt / protease 72512 unt delayed release oral capsule (14 sources) Start: 05-07-2023 take 84782-29171 capsules by mouth once Seddrk-Gdkwgzex-Auwetba (Creon) 24,000-76,000 -120,000 unit Capsule,Delayed Release(Dr/Ec) Active 2 CAP PO 3x/Day with meals 120 May 06, 2023 11:00pm Start: 04-28-2023 End: 05-07-2023 take 82771-60095 capsules by mouth three times daily Tlzjxi-Bceliwcf-Jxyzbwu (Creon) 24,000-76,000 -120,000 unit capsule,delayed release(DR/EC) Discontinued 2 CAP PO Three times daily April 27, 2023 11:00pm May 07, 2023 1:27pm take 1 capsule by mo ut three times daily at mealtime szfheq-tsmpxdiv-ablngxe (CREON) 30230-84028 units delayed release capsule Take 1 capsule by mouth 3 times daily (with meals) 0 Active lipase-protease- amylase (CREON) 70184-79189 units delayed release capsule Take 12,000 Units [...] 06, 2023 11:00pm take 1 tablet by osndra th once daily at mealtime ferrous sulfate, [...] Supplied) lipase/protease/amylase (CREON ORAL) (2 sources) take 13919 mg by mouth three times daily lipase/protease/amylas [...] 06-22-2024 Nitroglycerin Active 0.4 MG SUBLINGUAL Q5M 30 Rahel 5th, 2024 12:00am until response; do not exceed 3 [...] morning (before breakfast) 90 tablet 01/07/2022 Active Start: 01-07-2022 take 1 tablet [...] 11:00pm May 07, 2023 1:27pm Vitamin D3 9454043 UNIT/GM (4 sources) Vitamin D3 24837 00 UNIT/GM as directed Active Completed/Discontinued Medications [...] 4-6 hrs for 7 days ROSEANN # [id number] Active take 1 tablet by sondra th [...] 05-03-2023 End: 05-03-2023 Bisacodyl Discontinued 10 MG CO Daily 0 May 02, 2023 11:00pm May [...] 5:10pm Start: 05-03-2023 take 2 tablets by [facility] at bedtime Sennosides (Senna Laxative) 8.6 mg [...] vessel disease; Translations: [Atherosclerotic heart disease of [place] coronary artery without angina pectoris] Onset: 3 [...] 07-27-2023 XR hip RT min 2V(w/wo pelvis)* [facility] [place] [address] XRay Report Signed Patient: Ashwini Vickers MR#: [id number] 353 : 1935 Acct:[id number] Age/Sex: 88 / M ADM Date: 07/27/23 Loc: [facility] Room: Type: [facility] Attending Dr: Herminio Lakhani MD Copies to: [...] Sofia Rosales M.D.07/27/2023 2:31 PM Dictation Location: [place] [address] Transcribed By: [facility] 07/27/23 1431 Dictated By: Sofia Rosales MD 07/27/23 1428 Signed By: 07/27/23 1431 Normal [facility] Activated partial thrombopla stin time (aPTT) in platelet poor plasma by coagulation aOrdered By: Federico Davis on 07-16-2023 aPTT Coag (PPP) [Time] 30.2 s 25.1-36.5 [facility] Comment on above: A hematocrit value g reater than 55% may lead to inaccurate results in coagulation testing. Patients having hematocrit values >55% require a special collection tube for coagulation studies. Please contact the laboratory at [phone] for redraw instructions. Anisocytosis [Presence] in B lood by Light microscopyOrdered By: Federico Davis on 07-16-2023 Anisocytosis Ql (Bld) Slight Normal [facility] Comment on above: Performed By: #### B UN, SCAN CBC, LYTES ####[facility] [address] [place] [address] [facility] Automated basophil %Ordered By: Federico Davis on 07-16-2023 Basophils/100 WBC (Bld) 0.5 % Normal . [facility] Comment on above: Performed By: #### B UN, SCAN CBC, LYTES ####[address] Automated basophil countOrde red By: Federico Davis on 07-16-2023 Basophils (Bld) [#/Vol] 0.0 10*3/uL Normal 0.0-0.2 [facility] Comment on above: Performed By: #### B UN, SCAN CBC, LYTES ####[address] Automated blood monocyte cou ntOrdered By: Federico Davis on 07-16-2023 Monocytes (Bld) [#/Vol] 1.3 10*3/uL High 0.0-0.8 [facility] Comment on above: Performed By: #### B UN, SCAN CBC, LYTES ####[address] Automated eosinophil %Ordere d By: Federico Davis on 07-16-2023 Eosinophils/100 WBC (Bld) 0.3 % Normal . [facility] Comment on above: Performed By: #### B UN, SCAN CBC, LYTES ####[address] Automated eosinophil countOr dered By: Federico Davis on 07-16-2023 Eosinophils (Bld) [#/Vol] 0.0 10*3/uL Normal 0.0-0.45 [facility] Comment on above: Performed By: #### B UN, SCAN CBC, LYTES ####[address] Automated monocyte %Ordered By: Federico Davis on 07-16-2023 Monocytes/100 WBC (Bld) 15.1 % Normal . [facility] Comment on above: Performed By: #### B UN, SCAN CBC, LYTES ####[address] Automated neutrophil %Ordere d By: Federico Davis on 07-16-2023 Neutrophils/100 WBC (Bld) 75.7 % Normal . [facility] Comment on above: Performed By: #### B UN, SCAN CBC, LYTES ####[place] [id number] [place] [id number] [facility] Carbon dioxide, total [Moles /volume] in Serum or PlasmaOrdered By: Federico Davis on 07-16-2023 CO2 [Moles/Vol] 26.8 mmol/L Normal 21.0-31.0 [facility] Comment on above: Performed By: #### B UN, SCAN CBC, LYTES ####[address] Chloride [Moles/volume] in S jihan or PlasmaOrdered By: Federico Davis on 07-16-2023 Chloride [Moles/Vol] 103 mmol/L Normal 98-107 [facility] Comment on above: Performed By: #### B UN, SCAN CBC, LYTES ####[place] [id number] [facility] Coagulation Profileon 2023 aPTT Coag (Bld) [Time] 30.2 s Normal 25.1-36.5 [facility] Comment on above: Result Comment: A he matocrit value greater than 55% may lead to inaccurate results in coagulation testing. Patients having hematocrit values >55% require a special collection tube for coagulation studies. Please contact the laboratory at [phone] for redraw instructions. PERFORMED BY: [address] [place] [id number] PATHOLOGIST [employer] AIRAM MAST M.D. Performed By: #### P P ####[place] [id number] [facility] Creatinineon 07-16-2023 GFR/1.73 sq M.predicted MDRD (S/P/Bld) [Vol rate/Area] mL/min/{1.73_m2} Normal [facility] Comment on above: Result Comment: PERF ORMED BY: [facility] [address] [place] [id number] PATHOLOGIST [employer] AIRAM MAST M.D. Performed By: #### C REAT ####[place] [id number] [facility] Creatinine [Mass/volume] in Serum or PlasmaOrdered By: Federico Davis on 07-16-2023 Creatinine [Mass/Vol] 0.71 mg/dL Normal 0.70-1.30 [facility] Comment on above: Performed By: #### C REAT ####[facility] [id number] [place] [id number] [facility] ECG 12 lead ECGon 07-16-2023 ECG 12 lead ECG [facility] [place] [address] Electrocardiograph Report Signed Patient: Ashwini Vickers MR#: [id number] 353 : 1935 Acct:[id number] Age/Sex: 88 / M ADM Date: 07/16/23 Loc: [facility] Room: Type: [facility] SDC Attending Dr: Federico Davis [...] previous ECGs available Confirmed by Chuck Velasco ([id number]) on 07/18/2023 4:16:02 PM Referred By: NO Electronically Signed By:Chuck Velasco Transcribed By: MUS Signed By Chuck Velasco MD 07/18/23 1616 [facility] ECG 12 lead ECG [facility] Main [place] [id number] Electrocardiograph Report Signed Patient: Ashwini Vickers MR#: [id number] 353 : 1935 Acct:[id number] Age/Sex: 88 / M ADM Date: 07/16/23 [...] in Anterior leads Confirmed by Chuck Velasco ([id number]) on 07/18/2023 4:15:51 PM Referred By: Electronically Signed By:Chuck Velasco Transcribed By: MUS Signed By Chuck Velasco MD 07/18/23 1615 [facility] Erythrocyte distribution wid th [Ratio] by Automated countOrdered By: Federico Davis on 07-16-2023 Erythrocyte distribution width (RBC) [Ratio] 16.5 % High 12.0-14.8 [facility] Comment on above: Performed By: #### B UN, SCAN CBC, LYTES ####[facility] [id number] [place] [id number] [facility] Erythrocytes [#/volume] in B lood by Automated countOrdered By: Federico Davis on 07-16-2023 RBC (Bld) [#/Vol] 4.17 10*6/uL Normal 3.90-5.60 [facility] Comment on above: Performed By: #### B UN, SCAN CBC, LYTES ####[facility] [id number] [place] [id number] [facility] Glucose Glucometer (BldC) [M ass/Vol]Ordered By: Federico Davis on 07-16-2023 Glucose [Mass/Vol] 398 mg/dL [facility] Comment on above: Random Glucose Refer ence Range is dependent on time and content of last meal. Glucose of more than 200 mg/dL in a nonstressed, ambulatory subject supports the diagnosis of Diabetes Mellitus. Glucose Poct Glucometerson 0 07-16-2023 Commemt1 Glu2: Cleaned Meter Normal [facility] Comment on above: Result Comment: PERF ORMED BY: [facility] [address] [place] [id number] PATHOLOGIST [employer] AIRAM MAST M.D. Performed By: #### G LULS ####Point of Care testing, Glucose [Mass/Vol] 398 mg/dL Normal [facility] Comment on above: Result Comment: [place] Glucose Reference Range is dependent on time and content of last meal. Glucose of more than 200 mg/dL in a nonstressed, ambulatory subject supports the diagnosis of Diabetes Mellitus. Performed By: #### G LULS ####Point of Care testing, Glucose [Mass/Vol] 96 mg/dL Normal [facility] Comment on above: Result Comment: [place] [facility] Glucose Reference Range is dependent on time and content of last meal. Glucose of more than 200 mg/dL in a nonstressed, ambulatory subject supports the diagnosis of Diabetes Mellitus. PERFORMED BY: [facility] [address] [place] [address] PATHOLOGIST [employer] AIR[employer] MAST M.D. Performed By: #### G LUMARYA #### Point of Care testing , Hematocrit [Volume Fraction] of Blood by Automated countOrdered By: Federico Davis on 07-16-2023 Hematocrit (Bld) [Volume fraction] 33.5 % Low 38.8-50.0 [facility] Comment on above: Performed By: #### B UN, SCAN CBC, LYTES ####[address] Hemoglobin [Mass/volume] in BloodOrdered By: Federico Davis on 07-16-2023 Hemoglobin (Bld) [Mass/Vol] 11.0 g/dL Low 13.0-17.0 [facility] Comment on above: Performed By: #### B UN, SCAN CBC, LYTES ####[address] Hypochromia LM Ql (Bld)Order ed By: Federico Davis on 07-16-2023 Hypochromia Ql (Bld) Marked [facility] INR in Platelet poor plasma by Coagulation assayOrdered By: Federico Davis on 07-16-2023 INR Coag (PPP) [Relative time] 1.1 {INR} Normal [facility] Comment on above: INR Therapeutic Rang [...] - 4.5 Performed By: #### P P ####[address] Leukocytes [#/volume] correc robert for nucleated erythrocytes in Blood by Automated counOrdered By: Federico Davis on 07-16-2023 WBC corrected for nucl RBC Auto (Bld) [#/Vol] 8.4 10*3/uL 4.1-10.5 [facility] Leukocytes [#/volume] in Blo od by Automated countOrdered By: Federico Davis on 07-16-2023 WBC (Bld) [#/Vol] 8.4 10*3/uL Normal 4.1-10.5 [facility] Comment on above: Performed By: #### B UN, SCAN CBC, LYTES ####[address] Lymphocytes [#/volume] in Bl ood by Automated countOrdered By: Federico Davis on 07-16-2023 Lymphocytes (Bld) [#/Vol] 0.7 10*3/uL Low 1.00-4.8 [facility] Comment on above: Performed By: #### B UN, SCAN CBC, LYTES ####[place] [id number] [place] Lymphocytes/100 leukocytes i n Blood by Automated countOrdered By: Federico Davis on 07-16-2023 Lymphocytes/100 WBC (Bld) 8.4 % Normal . [facility] Comment on above: Performed By: #### B UN, SCAN CBC, LYTES ####[facility] [id number] MCH [Entitic mass] by Automa robert countOrdered By: Federico Davis on 07-16-2023 MCH (RBC) [Entitic mass] 26.4 pg Low 27.5-35.2 [facility] Comment on above: Performed By: #### B UN, SCAN CBC, LYTES ####[place] [address] [address] MCHC Auto (RBC) [Mass/Vol]Or dered By: Federico Davis on 07-16-2023 MCHC (RBC) [Mass/Vol] 32.8 g/dL 32.5-35.6 [facility] MCV [Entitic volume] by Auto mated countOrdered By: Federico Davis on 07-16-2023 MCV (RBC) [Entitic vol] 80.4 fL Low 83.5-101 [facility] Comment on above: Performed By: #### B UN, SCAN CBC, LYTES ####[facility] [id number] [place] [address] Macrocytes LM Ql (Bld)Ordere d By: Federico Davis on 07-16-2023 Macrocytes Ql (Bld) Slight [facility] Neutrophils [#/volume] in Bl ood by Automated countOrdered By: Federico Davis on 07-16-2023 Neutrophils (Bld) [#/Vol] 6.3 10*3/uL Normal 1.8-7.7 [facility] Comment on above: Performed By: #### B UN, SCAN CBC, LYTES ####[facility] [id number] [place] [address] No Panel InformationOrdered By: Federico Davis on 07-16-2023 Bedside Glucose Comment Glu2: cleaned meter [facility] Estimated GFR (CKD-EPI) > 60.0 mL/Min [facility] Creatinine Clearance (Chem N/A [facility] Nucleated erythrocytes [Pres ence] in Blood by Automated countOrdered By: Federico Davis on 07-16-2023 Nucleated RBC Auto Ql (Bld) 0.1 /100{WBC} 0-0.5 [facility] Platelet adequacy [Presence] in Blood by Light microscopyOrdered By: Federico Davis on 07-16-2023 Platelets LM Ql (Bld) Normal Normal [facility] Platelet mean volume [Entiti c volume] in Blood by Automated countOrdered By: Federico Davis on 07-16-2023 Platelet mean volume (Bld) [Entitic vol] 10.1 fL Normal 6.6-10.1 [facility] Comment on above: Performed By: #### B UN, SCAN CBC, LYTES ####[facility] [id number] Platelet morphology finding [Identifier] in BloodOrdered By: Federico Davis on 07-16-2023 Platelet morphology finding Nom (Bld) N/A [facility] Platelets Large [Presence] i n Blood by Light microscopyOrdered By: Federico Davis on 07-16-2023 Platelets Large LM Ql (Bld) Slight [facility] Platelets [#/volume] in Bloo d by Automated countOrdered By: Federico Davis on 07-16-2023 Platelets (Bld) [#/Vol] 243 10*3/uL Normal 150-450 [facility] Comment on above: Performed By: #### B UN, SCAN CBC, LYTES ####[facility] [id number] [place] [address] Poikilocytosis [Presence] in Blood by Light microscopyOrdered By: Federico Davis on 07-16-2023 Poikilocytosis LM Ql (Bld) Moderate [facility] Polychromasia [Presence] in Blood by Light microscopyOrdered By: Federico Davis on 07-16-2023 Polychromasia LM Ql (Bld) Moderate [facility] Potassium [Moles/volume] in Serum or PlasmaOrdered By: Federico Davis on 07-16-2023 Potassium [Moles/Vol] 4.2 mmol/L Normal 3.5-5.1 [facility] Comment on above: Performed By: #### B UN, SCAN CBC, LYTES ####[address] Prothrombin time (PT)Ordered By: Federico Davis on 07-16-2023 PT Coag (PPP) [Time] 12.3 s Normal 9.0-12.9 [facility] Comment on above: A hematocrit value g reater than 55% may lead to inaccurate results in coagulation testing. Patients having hematocrit values >55% require a special collection tube for coagulation studies. Please contact the laboratory at [phone] for redraw instructions. Result Comment: A he matocrit value greater than 55% may lead to inaccurate results in coagulation testing. Patients having hematocrit values >55% require a special collection tube for coagulation studies. Please contact the laboratory at [phone] for redraw instructions. Performed By: #### P P ####[address] RBC morphologyOrdered By: Federico Davis on 07-16-2023 RBC morphology finding Nom (Bld) N/A [facility] Scan and CBCon 07-16-2023 Hypochromasia Marked Normal [facility] Comment on above: Performed By: #### B UN, SCAN CBC, LYTES ####[address] Large Platelets Slight Normal [facility] Comment on above: Result Comment: PERF ORMED BY: [facility] [address] [place] [address] PATHOLOGIST [employer] AIRAM MAST M.D. Performed By: #### B UN, SCAN CBC, LYTES ####[address] Macrocytosis Slight Normal [facility] Comment on above: Performed By: #### B UN, SCAN CBC, LYTES ####[address] Mean Corpuscular HGB Conc 32.8 g/dL Normal 32.5-35.6 [facility] Comment on above: Performed By: #### B UN, SCAN CBC, LYTES ####[place] [address] NRBC% 0.1 /100{WBC} Normal 0-0.5 [facility] Comment on above: Performed By: #### B UN, SCAN CBC, LYTES ####[place] [address] Platelet Estimate Normal Normal Normal [facility] Comment on above: Performed By: #### B UN, SCAN CBC, LYTES ####[facility] [id number] Poikilocytosis Moderate Normal [facility] Comment on above: Performed By: #### B UN, SCAN CBC, LYTES ####[place] [address] Polychromasia Moderate Normal [facility] Comment on above: Performed By: #### B UN, SCAN CBC, LYTES ####[address] Schistocytes Slight Normal [facility] Comment on above: Performed By: #### B UN, SCAN CBC, LYTES ####[place] [address] Target Cells Moderate Normal [facility] Comment on above: Performed By: #### B UN, SCAN CBC, LYTES ####[address] Schistocytes [Presence] in B lood by Light microscopyOrdered By: Federico Davis on 07-16-2023 Schistocytes LM Ql (Bld) Slight [facility] Serum or plasma anion gap de terminationOrdered By: Federico Davis on 07-16-2023 Anion gap [Moles/Vol] 12.4 mmol/L Normal 6.0-15.0 [facility] Comment on above: Performed By: #### B UN, SCAN CBC, LYTES ####[address] Sodium [Moles/volume] in Ser um or PlasmaOrdered By: Federico Davis on 07-16-2023 Sodium [Moles/Vol] 138 mmol/L Normal 136-145 [facility] Comment on above: Performed By: #### B UN, SCAN CBC, LYTES ####[place] [address] Target cellsOrdered By: Federico espino on 07-16-2023 Target cells LM Ql (Bld) Moderate [facility] Urea nitrogen [Mass/volume] in Serum or PlasmaOrdered By: Federico Davis on 07-16-2023 Urea nitrogen [Mass/Vol] 16 mg/dL Normal 7-25 [facility] Comment on above: Result Comment: PERF ORMED BY: [place] [address] PATHOLOGIST [employer] AIRAM MAST M.D. Performed By: #### B UN, SCAN CBC, LYTES ####[address] XR femur RT 2V*on 06-11-2023 XR femur RT 2V* [facility] Main [place] [address] [place] [address] XRay Report Signed Patient: Ashwini Vickers MR#: [id number] 353 : 1935 Acct:[id number] Age/Sex: 88 / M ADM Date: 06/11/23 Loc: [facility] Room: Type: [facility] Attending Dr: Ashwini Conrad MD Copies to: [...] Sheldon Johnson M.D.06/11/2023 2:43 PM Dictation Location: [facility]--12 Transcribed By: ERIBERTO 06/11/231442 Dictated By: Sheldon Johnson DO 06/11/23 144 Signed By: 06/11/23 144 [facility] [facility] Noteson 06-02-2023 Supervisor Quilting Authentication Interface Message Text EMERGENCY TRIAGE, TREAT AND TRANSPORT (ET3) DOCUMENTATION OF TELEHEALTH VISIT Date / Time: 06/02/2023929 Name: Ifeanyi Vickers : 1935 SSN: (Not on file) EMS Agency: [facility] [x] Verbal consent obtained [] Implied [...] Completed by: Herminio Weston MD Normal The [employer] XR HIP 2 OR 3 VW [...] anterolateral ST T wave abnormality, abnormal ECG [facility] Work Phone: XR hip RT min 2V(w/wo pelvis )*on 05-21-2023 XR hip RT min 2V(w/wo pelvis)* [facility] Main [place] [address] [place] [address] XRay Report Signed Patient: Ashwini Vickers MR#: [id number] : 1935 Acct:[id number] Age/Sex: 88 / M ADM Date: 05/21/23 Loc: [facility] [place] Room: Type: [facility] Attending Dr: Ashwini Conrad MD Copies to: [...] Sheldon Johnson M.D.05/21/2023 4:06 PM Dictation Location: [place] [address] Transcribed By: [facility] 05/21/231605 Dictated By: Sheldon Johnson DO 05/21/231603 Signed By: 05/21/23 160 [facility] Glucose Glucometer (BldC) [M ass/Vol]Ordered By: Fredi Medrano on 05-08-2023 Glucose [Mass/Vol] 98 mg/dL [facility] Comment on above: Random Glucose Refer ence Range is dependent on time and content of last meal. Glucose of more than 200 mg/dL in a nonstressed, ambulatory subject supports the diagnosis of Diabetes Mellitus. Glucose Poct Glucometerson 1 Commemt1 Glu2: Cleaned Meter [facility] Comment on above: Result Comment: PERF ORMED BY: [facility] [address] [place] [address] PATHOLOGIST [employer] AIRAM MAST M.D. Performed By: #### G LULS #### Point of Care testing , Glucose [Mass/Vol] 98 mg/dL Normal [facility] Comment on above: Result Comment: [place] Glucose Reference Range is dependent on time and content of last meal. Glucose of more than 200 mg/dL in a nonstressed, ambulatory subject supports the diagnosis of Diabetes Mellitus. Performed By: #### G LULS #### Point of Care testing , No Panel InformationOrdered By: Fredi Medrano on 05-08-2023 Bedside Glucose Comment Glu2: cleaned meter [facility] Glucose Poct Glucometerson 1 Glucose [Mass/Vol] 146 mg/dL Normal [facility] Comment on above: Result Comment: [facility] Glucose Reference Range is dependent on time and content of last meal. Glucose of more than 200 mg/dL in a nonstressed, ambulatory subject supports the diagnosis of Diabetes Mellitus. PERFORMED BY: [address] [place] [address] PATHOLOGIST [employer] AIR[employer] MAST M.D. Performed By: #### G LULS #### Point of Care testing , Commemt1 Glu2: Cleaned Meter [facility] Comment on above: Result Comment: PERF ORMED BY: [address] [place] [address] PATHOLOGIST [employer] AIRAM MAST M.D. Performed By: #### G LULS ####Point of Care testing, Glucose [Mass/Vol] 164 mg/dL Normal [facility] Comment on above: Result Comment: [facility] Glucose Reference Range is dependent on time and content of last meal. Glucose of more than 200 mg/dL in a nonstressed, ambulatory subject supports the diagnosis of Diabetes Mellitus. Performed By: #### G LULS ####Point of Care testing, Commemt1 Glu2: Cleaned Meter [facility] Comment on above: Result Comment: PERF ORMED BY: [place] [address] PATHOLOGIST [employer] AIR[employer] MAST M.D. Performed By: #### G LULS ####Point of Care testing, Glucose [Mass/Vol] 238 mg/dL Normal [facility] Comment on above: Result Comment: [place] Glucose Reference Range is dependent on time and content of last meal. Glucose of more than 200 mg/dL in a nonstressed, ambulatory subject supports the diagnosis of Diabetes Mellitus. Performed By: #### G LULS ####Point of Care testing, Glucose [Mass/Vol] 112 mg/dL Normal [facility] Comment on above: Result Comment: [facility] Glucose Reference Range is dependent on time and content of last meal. Glucose of more than 200 mg/dL in a nonstressed, ambulatory subject supports the diagnosis of Diabetes Mellitus. PERFORMED BY: [address] [place] [id number] PATHOLOGIST [employer] AIRAM MAST M.D. Performed By: #### G LULS ####Point of Care testing, Glucose [Mass/Vol] 67 mg/dL Normal [facility] Comment on above: Result Comment: [place] om Glucose Reference Range is dependent on time and content of last meal. Glucose of more than 200 mg/dL in a nonstressed, ambulatory subject supports the diagnosis of Diabetes Mellitus. PERFORMED BY: [address] [place] [address] PATHOLOGIST [employer] AIR[employer] MAST M.D. Performed By: #### G LULS #### Point of Care testing , Glucose Poct Glucometerson 1 Glucose [Mass/Vol] 258 mg/dL Normal [facility] Comment on above: Result Comment: [facility] Glucose Reference Range is dependent on time and content of last meal. Glucose of more than 200 mg/dL in a nonstressed, ambulatory subject supports the diagnosis of Diabetes Mellitus. PERFORMED BY: [address] [place] [id number] PATHOLOGIST [employer] AIR[employer] MAST M.D. Performed By: #### G LULS ####Point of Care testing, Commemt1 Glu2: Cleaned Meter Normal [facility] Comment on above: Result Comment: PERF ORMED BY: [address] [place] [address] PATHOLOGIST [employer] AIR[employer] MAST M.D. Performed By: #### G LULS ####Point of Care testing, Glucose [Mass/Vol] 308 mg/dL Normal [facility] Comment on above: Result Comment: [place] Glucose Reference Range is dependent on time and content of last meal. Glucose of more than 200 mg/dL in a nonstressed, ambulatory subject supports the diagnosis of Diabetes Mellitus. Performed By: #### G LULS ####Point of Care testing, Commemt1 Glu2: Cleaned Meter Normal [facility] Comment on above: Result Comment: PERF ORMED BY: [facility] [address] [place] [id number] PATHOLOGIST [employer] AIR[employer] MAST M.D. Performed By: #### G LULS #### Point of Care testing , Glucose [Mass/Vol] 222 mg/dL Normal [facility] Comment on above: Result Comment: [place] om Glucose Reference Range is dependent on time and content of last meal. Glucose of more than 200 mg/dL in a nonstressed, ambulatory subject supports the diagnosis of Diabetes Mellitus. Performed By: #### G LULS #### Point of Care testing , Glucose [Mass/Vol] 114 mg/dL Normal [facility] Comment on above: Result Comment: [place] om Glucose Reference Range is dependent on time and content of last meal. Glucose of more than 200 mg/dL in a nonstressed, ambulatory subject supports the diagnosis of Diabetes Mellitus. PERFORMED BY: [address] [place] [address] PATHOLOGIST [employer] AIR[employer] MAST M.D. Performed By: #### G LULS ####Point of Care testing, Glucose Poct Glucometerson 1 Glucose [Mass/Vol] 141 mg/dL Normal [facility] Comment on above: Result Comment: [place] om Glucose Reference Range is dependent on time and content of last meal. Glucose of more than 200 mg/dL in a nonstressed, ambulatory subject supports the diagnosis of Diabetes Mellitus. PERFORMED BY: [facility] [address] [place] [address] PATHOLOGIST [employer] MAST M.D. Performed By: #### G LULS ####Point of Care testing, Glucose [Mass/Vol] 153 mg/dL Normal [facility] Comment on above: Result Comment: [place] om Glucose Reference Range is dependent on time and content of last meal. Glucose of more than 200 mg/dL in a nonstressed, ambulatory subject supports the diagnosis of Diabetes Mellitus. PERFORMED BY: [address] [place] [address] PATHOLOGIST [employer] AIR[employer] MAST M.D. Performed By: #### G LULS #### Point of Care testing , Commemt1 Glu2: Cleaned Meter Normal [facility] Comment on above: Result Comment: PERF ORMED BY: [address] [place] [address] PATHOLOGIST [employer] AIR[employer] MAST M.D. Performed By: #### G LULS ####Point of Care testing, Glucose [Mass/Vol] 224 mg/dL Normal [facility] Comment on above: Result Comment: [place] om Glucose Reference Range is dependent on time and content of last meal. Glucose of more than 200 mg/dL in a nonstressed, ambulatory subject supports the diagnosis of Diabetes Mellitus. Performed By: #### G LULS ####Point of Care testing, Glucose [Mass/Vol] 106 mg/dL Normal [facility] Comment on above: Result Comment: [place] om Glucose Reference Range is dependent on time and content of last meal. Glucose of more than 200 mg/dL in a nonstressed, ambulatory subject supports the diagnosis of Diabetes Mellitus. PERFORMED BY: [address] [place] [address] PATHOLOGIST [employer] MAST M.D. Performed By: #### G LULS #### Point of Care testing , Glucose [Mass/Vol] 124 mg/dL Normal [facility] Comment on above: Result Comment: [place] Glucose Reference Range is dependent on time and content of last meal. Glucose of more than 200 mg/dL in a nonstressed, ambulatory subject supports the diagnosis of Diabetes Mellitus. PERFORMED BY: [address] [place] [address] PATHOLOGIST [employer] MAST M.D. Performed By: #### G LULS #### Point of Care testing , Alanine aminotransferase [En zymatic activity/volume] in Serum or PlasmaOrdered By: Fredi Medrano on 05-04-2023 ALT [Catalytic activity/Vol] 14 U/L 7-52 [facility] Albumin [Mass/volume] in Ser um or Plasma by Bromocresol green (BCG) dye binding methoOrdered By: Fredi Medrano on 05-04-2023 Albumin BCG dye [Mass/Vol] 2.9 g/dL 3.5-5.7 [facility] Alkaline phosphatase [Enzyma tic activity/volume] in Serum or PlasmaOrdered By: Fredi Medrano on 05-04-2023 ALP [Catalytic activity/Vol] 87 U/L 34-104 [facility] Aspartate aminotransferase [ Enzymatic activity/volume] in Serum or PlasmaOrdered By: Fredi Medrano on 05-04-2023 AST [Catalytic activity/Vol] 20 U/L 13-39 [facility] Basophils Auto (Bld) [#/Vol] Ordered By: Fredi Medrano on 05-04-2023 Basophils (Bld) [#/Vol] 0.0 10*3/uL 0.0-0.2 [facility] Basophils/100 WBC Auto (Bld) Ordered By: Fredi Medrano on 05-04-2023 Basophils/100 WBC (Bld) 0.7 % . [facility] Bilirubin.total [Mass/volume ] in Serum or PlasmaOrdered By: Fredi Medrano on 05-04-2023 Bilirubin [Mass/Vol] 0.5 mg/dL 0.3-1.0 [facility] Calcium [Mass/volume] in Ser um or PlasmaOrdered By: Fredi Medrano on 05-04-2023 Calcium [Mass/Vol] 8.0 mg/dL 8.6-10.3 [facility] Carbon dioxide, total [Moles /volume] in Serum or PlasmaOrdered By: Fredi Medrano on 05-04-2023 CO2 [Moles/Vol] 28.0 mmol/L 21.0-31.0 [facility] Chloride [Moles/volume] in S jihan or PlasmaOrdered By: Fredi Medrano on 05-04-2023 Chloride [Moles/Vol] 102 mmol/L 98-107 [facility] Complete Blood Count Auto Di ffon 05-04-2023 Basophils (Bld) [#/Vol] 0.0 10*3/uL Normal 0.0-0.2 [facility] Comment on above: Result Comment: PERF ORMED BY: [facility] [place] [address] PATHOLOGIST [employer] AIR[employer] MAST M.D. Performed By: #### G LULS #### Point of Care testing , Basophils/100 WBC (Bld) 0.7 % Normal . [facility] Comment on above: Performed By: #### G LULS #### Point of Care testing , Eosinophils (Bld) [#/Vol] 0.1 10*3/uL Normal 0.0-0.45 [facility] Comment on above: Performed By: #### G LULS #### Point of Care testing , Eosinophils/100 WBC (Bld) 1.5 % Normal . [facility] Comment on above: Performed By: #### G LULS #### Point of Care testing , Erythrocyte distribution width (RBC) [Ratio] 16.8 % High 12.0-14.8 [facility] Comment on above: Performed By: #### G LULS #### Point of Care testing , Hematocrit (Bld) [Volume fraction] 29.3 % Low 38.8-50.0 [facility] Comment on above: Performed By: #### G LULS #### Point of Care testing , Hemoglobin (Bld) [Mass/Vol] 9.7 g/dL Low 13.0-17.0 [facility] Comment on above: Performed By: #### G LULS #### Point of Care testing , Lymphocytes (Bld) [#/Vol] 1.6 10*3/uL Normal 1.00-4.8 [facility] Comment on above: Performed By: #### G LULS #### Point of Care testing , Lymphocytes/100 WBC (Bld) 23.0 % Normal . [facility] Comment on above: Performed By: #### G LULS #### Point of Care testing , MCH (RBC) [Entitic mass] 27.9 pg Normal 27.5-35.2 [facility] Comment on above: Performed By: #### Aileen NATION #### Point of Care testing , MCV (RBC) [Entitic vol] 84.6 fL Normal 83.5-101 [facility] Comment on above: Performed By: #### G KRISTOPHERLS #### Point of Care testing , Mean Corpuscular HGB Conc 33.0 g/dL Normal 32.5-35.6 [facility] Comment on above: Performed By: #### Aileen NATION #### Point of Care testing , Monocytes (Bld) [#/Vol] 0.7 10*3/uL Normal 0.0-0.8 [facility] Comment on above: Performed By: #### Aileen NATION #### Point of Care testing , Monocytes/100 WBC (Bld) 9.9 % Normal . [facility] Comment on above: Performed By: #### Aileen NATION #### Point of Care testing , Neutrophils (Bld) [#/Vol] 4.6 10*3/uL Normal 1.8-7.7 [facility] Comment on above: Performed By: #### Aileen NATION #### Point of Care testing , Neutrophils/100 WBC (Bld) 64.9 % Normal . [facility] Comment on above: Performed By: #### Aileen SUMMERSLS #### Point of Care testing , NRBC% 0.2 /100{WBC} Normal 0-0.5 [facility] Comment on above: Performed By: #### Aileen SUMMERSLS #### Point of Care testing , Platelet mean volume (Bld) [Entitic vol] 8.9 fL Normal 6.6-10.1 [facility] Comment on above: Performed By: #### Aileen NATION #### Point of Care testing , Platelets (Bld) [#/Vol] 218 10*3/uL Normal 150-450 [facility] Comment on above: Performed By: #### Aileen NATION #### Point of Care testing , RBC (Bld) [#/Vol] 3.46 10*6/uL Low 3.90-5.60 [facility] Comment on above: Performed By: #### G RIOS #### Point of Care testing , WBC (Bld) [#/Vol] 7.2 10*3/uL Normal 4.1-10.5 [facility] Comment on above: Performed By: #### G RIOS #### Point of Care testing , Comprehensive Metabolic Pane fabby 05-04-2023 Albumin [Mass/Vol] 2.9 g/dL Low 3.5-5.7 [facility] Comment on above: Performed By: #### Aileen NATION #### Point of Care testing , Albumin/Globulin [Mass ratio] 1.2 {ratio} Normal [facility] Comment on above: Performed By: #### Aileen NATION #### Point of Care testing , ALP [Catalytic activity/Vol] 87 U/L Normal 34-104 [facility] Comment on above: Performed By: #### Aileen NATION #### Point of Care testing , ALT [Catalytic activity/Vol] 14 U/L Normal 7-52 [facility] Comment on above: Performed By: #### Aileen NATION #### Point of Care testing , Anion gap [Moles/Vol] 8.6 mmol/L Normal 6.0-15.0 [facility] Comment on above: Performed By: #### Aileen NATION #### Point of Care testing , AST [Catalytic activity/Vol] 20 U/L Normal 13-39 [facility] Comment on above: Performed By: #### Aileen NATION #### Point of Care testing , Bilirubin [Mass/Vol] 0.5 mg/dL Normal 0.3-1.0 [facility] Comment on above: Performed By: #### Aileen NATION #### Point of Care testing , Calcium [Mass/Vol] 8.0 mg/dL Low 8.6-10.3 [facility] Comment on above: Performed By: #### Aileen NATION #### Point of Care testing , Chloride [Moles/Vol] 102 mmol/L Normal 98-107 [facility] Comment on above: Performed By: #### G KRISTOPHERLS #### Point of Care testing , CO2 [Moles/Vol] 28.0 mmol/L Normal 21.0-31.0 [facility] Comment on above: Performed By: #### G KRISTOPHERLS #### Point of Care testing , Creatinine [Mass/Vol] 0.61 mg/dL Low 0.70-1.30 [facility] Comment on above: Performed By: #### G KRISTOPHERLS #### Point of Care testing , Creatinine Clr Calc Pharmacy 62.25 [facility] Comment on above: Performed By: #### G KRISTOPHERLS #### Point of Care testing , GFR/1.73 sq M.predicted MDRD (S/P/Bld) [Vol rate/Area] mL/min/{1.73_m2} [facility] Comment on above: Performed By: #### G KRISTOPHERLS #### Point of Care testing , Globulin (S) [Mass/Vol] 2.5 g/dL [facility] Comment on above: Performed By: #### G KRISTOPHERLS #### Point of Care testing , Glucose [Mass/Vol] 120 mg/dL High 70-100 [facility] Comment on above: Result Comment: [facility] Glucose Reference Range is dependent on time and content of last meal. Glucose of more than 200 mg/dL in a nonstressed, ambulatory subject supports the diagnosis of Diabetes Mellitus. ADA recommended reference range Performed By: #### G KRISTOPHERLS #### Point of Care testing , Potassium [Moles/Vol] 4.6 mmol/L Normal 3.5-5.1 [facility] Comment on above: Performed By: #### G KRISTOPHERLS #### Point of Care testing , Protein [Mass/Vol] 5.4 g/dL Low 6.4-8.9 [facility] Comment on above: Performed By: #### G KRISTOPHERLS #### Point of Care testing , Sodium [Moles/Vol] 134 mmol/L Low 136-145 [facility] Comment on above: Performed By: #### G KRISTOPHERLS #### Point of Care testing , Urea nitrogen [Mass/Vol] 22 mg/dL Normal 7-25 [facility] Comment on above: Performed By: #### G LULS #### Point of Care testing , Creatinine [Mass/volume] in Serum or PlasmaOrdered By: Fredi Medrano on 05-04-2023 Creatinine [Mass/Vol] 0.61 mg/dL 0.70-1.30 [facility] Eosinophils Auto (Bld) [#/Vo l]Ordered By: Fredi Medrano on 05-04-2023 Eosinophils (Bld) [#/Vol] 0.1 10*3/uL 0.0-0.45 [facility] Eosinophils/100 WBC Auto (Bl d)Ordered By: Fredi Medrano on 05-04-2023 Eosinophils/100 WBC (Bld) 1.5 % . [facility] Erythrocyte distribution wid th Auto (RBC) [Ratio]Ordered By: Fredi Medrano on 05-04-2023 Erythrocyte distribution width (RBC) [Ratio] 16.8 % 12.0-14.8 [facility] Globulin Calc (S) [Mass/Vol] Ordered By: Fredi Medrano on 05-04-2023 Globulin (S) [Mass/Vol] 2.5 g/dL [facility] Glucose Poct Glucometerson 1 Glucose [Mass/Vol] 125 mg/dL Normal [facility] Comment on above: Result Comment: [facility] Glucose Reference Range is dependent on time and content of last meal. Glucose of more than 200 mg/dL in a nonstressed, ambulatory subject supports the diagnosis of Diabetes Mellitus. PERFORMED BY: [facility] [address] [place] [address] PATHOLOGIST [employer] MAST M.D. Performed By: #### G LULS ####Point of Care testing, Glucose [Mass/Vol] 210 mg/dL Normal [facility] Comment on above: Result Comment: [facility] Glucose Reference Range is dependent on time and content of last meal. Glucose of more than 200 mg/dL in a nonstressed, ambulatory subject supports the diagnosis of Diabetes Mellitus. PERFORMED BY: [facility] [address] [place] [address] PATHOLOGIST [employer] MAST M.D. Performed By: #### G LULS ####Point of Care testing, Glucose [Mass/Vol] 213 mg/dL Normal [facility] Comment on above: Result Comment: [place] Glucose Reference Range is dependent on time and content of last meal. Glucose of more than 200 mg/dL in a nonstressed, ambulatory subject supports the diagnosis of Diabetes Mellitus. PERFORMED BY: [address] [place] [address] PATHOLOGIST [employer] MA[employer] M.D. Performed By: #### G LULS ####Point of Care testing, Commemt1 Glu2: Cleaned Meter Normal [facility] Comment on above: Result Comment: PERF ORMED BY: [address] [place] [address] PATHOLOGIST [employer] M.D. Performed By: #### G LULS #### Point of Care testing , Glucose [Mass/Vol] 197 mg/dL Normal [facility] Comment on above: Result Comment: [place] om Glucose Reference Range is dependent on time and content of last meal. Glucose of more than 200 mg/dL in a nonstressed, ambulatory subject supports the diagnosis of Diabetes Mellitus. Performed By: #### G LULS #### Point of Care testing , Glucose [Mass/volume] in Ser um or PlasmaOrdered By: Fredi Medrano on 05-04-2023 Glucose [Mass/Vol] 120 mg/dL 70-100 [facility] Comment on above: ADA recommended refe rence rangeRandom Glucose Reference Range is dependent on time and content of last meal. Glucose of more than 200 mg/dL in a nonstressed, ambulatory subject supports the diagnosis of Diabetes Mellitus. Hematocrit Auto (Bld) [Volum e fraction]Ordered By: Fredi Medrano on 05-04-2023 Hematocrit (Bld) [Volume fraction] 29.3 % 38.8-50.0 [facility] Hemoglobin [Mass/volume] in BloodOrdered By: Fredi Medrano on 05-04-2023 Hemoglobin (Bld) [Mass/Vol] 9.7 g/dL 13.0-17.0 [facility] Leukocytes [#/volume] correc robert for nucleated erythrocytes in Blood by Automated counOrdered By: Fredi Medrano on 05-04-2023 WBC corrected for nucl RBC Auto (Bld) [#/Vol] 7.2 10*3/uL 4.1-10.5 [facility] Lymphocytes Auto (Bld) [#/Vo l]Ordered By: Fredi Medrano on 05-04-2023 Lymphocytes (Bld) [#/Vol] 1.6 10*3/uL 1.00-4.8 [facility] Lymphocytes/100 WBC Auto (Bl d)Ordered By: Fredi Medrano on 05-04-2023 Lymphocytes/100 WBC (Bld) 23.0 % . [facility] MCH Auto (RBC) [Entitic mass ]Ordered By: Fredi Medrano on 05-04-2023 MCH (RBC) [Entitic mass] 27.9 pg 27.5-35.2 [facility] MCHC Auto (RBC) [Mass/Vol]Or dered By: Fredi Medrano on 05-04-2023 MCHC (RBC) [Mass/Vol] 33.0 g/dL 32.5-35.6 [facility] MCV Auto (RBC) [Entitic vol] Ordered By: Fredi Medrano on 05-04-2023 MCV (RBC) [Entitic vol] 84.6 fL 83.5-101 [facility] Monocytes Auto (Bld) [#/Vol] Ordered By: Fredi Medrano on 05-04-2023 Monocytes (Bld) [#/Vol] 0.7 10*3/uL 0.0-0.8 [facility] Monocytes/100 WBC Auto (Bld) Ordered By: Fredi Medrano on 05-04-2023 Monocytes/100 WBC (Bld) 9.9 % . [facility] Neutrophils Auto (Bld) [#/Vo l]Ordered By: Fredi Medrano on 05-04-2023 Neutrophils (Bld) [#/Vol] 4.6 10*3/uL 1.8-7.7 [facility] Neutrophils/100 WBC Auto (Bl d)Ordered By: Fredi Medrano on 05-04-2023 Neutrophils/100 WBC (Bld) 64.9 % . [facility] No Panel InformationOrdered By: Fredi Medrano on 05-04-2023 Estimated GFR (CKD-EPI) > 60.0 mL/Min [facility] Creatinine Clearance (Chem 62.25 [facility] Nucleated erythrocytes [Pres ence] in Blood by Automated countOrdered By: Fredi Medrano on 05-04-2023 Nucleated RBC Auto Ql (Bld) 0.2 /100{WBC} 0-0.5 [facility] Platelet mean volume Auto (B ld) [Entitic vol]Ordered By: Fredi Medrano on 05-04-2023 Platelet mean volume (Bld) [Entitic vol] 8.9 fL 6.6-10.1 [facility] Platelets Auto (Bld) [#/Vol] Ordered By: Fredi Medrano on 05-04-2023 Platelets (Bld) [#/Vol] 218 10*3/uL 150-450 [facility] Potassium [Moles/volume] in Serum or PlasmaOrdered By: Fredi Medrano on 05-04-2023 Potassium [Moles/Vol] 4.6 mmol/L 3.5-5.1 [facility] Prealbuminon 05-04-2023 Prealbumin [Mass/Vol] 10.2 mg/dL Low 17.0-34.0 [facility] Comment on above: Result Comment: PERF ORMED BY: [facility] [address] [place] [address] PATHOLOGIST [employer] AIRAM MAST M.D. Performed By: #### G RIOS #### Point of Care testing , Prealbumin [Mass/volume] in Serum or PlasmaOrdered By: Fredi Medrano on 05-04-2023 Prealbumin [Mass/Vol] 10.2 mg/dL 17.0-34.0 [facility] Protein [Mass/volume] in Ser um or PlasmaOrdered By: Fredi Medrano on 05-04-2023 Protein [Mass/Vol] 5.4 g/dL 6.4-8.9 [facility] RBC Auto (Bld) [#/Vol]Ordere d By: Fredi Medrano on 05-04-2023 RBC (Bld) [#/Vol] 3.46 10*6/uL 3.90-5.60 [facility] Serum or plasma albumin/glob ulin mass ratioOrdered By: Fredi Medrano on 05-04-2023 Albumin/Globulin [Mass ratio] 1.2 {ratio} [facility] Serum or plasma anion gap de terminationOrdered By: Fredi Medrano on 05-04-2023 Anion gap [Moles/Vol] 8.6 mmol/L 6.0-15.0 [facility] Sodium [Moles/volume] in Ser um or PlasmaOrdered By: Fredi Medrano on 05-04-2023 Sodium [Moles/Vol] 134 mmol/L 136-145 [facility] Urea nitrogen [Mass/volume] in Serum or PlasmaOrdered By: Fredi Medrano on 05-04-2023 Urea nitrogen [Mass/Vol] 22 mg/dL 7-25 [facility] WBC Auto (Bld) [#/Vol]Ordere d By: Fredi Medrano on 05-04-2023 WBC (Bld) [#/Vol] 7.2 10*3/uL 4.1-10.5 [facility] Cholesterol [Mass/volume] in Serum or PlasmaOrdered By: Anat Perez on 05-03-2023 Cholesterol [Mass/Vol] 98 mg/dL 140-200 [facility] Comment on above: Chol less than 200 m g/dl low riskChol 201-239 mg/dl borderline riskChol 240 mg/dl and greater high risk Cholesterol in LDL Calc [Mas s/Vol]Ordered By: Anat Perez on 05-03-2023 Cholesterol in LDL [Mass/Vol] 46 mg/dL 0-100 [facility] Comment on above: LDL ATP III CLASSIFI CATIONLDL less than 100 mg/dL OptimalLDL 100-129 mg/dL Near or above optimalLDL 130-159 mg/dL Borderline highLDL 160-189 mg/dL HighLDL greater than 189 mg/dL Very high Cholesterol in VLDL Calc [Ma ss/Vol]Ordered By: Anat Perez on 05-03-2023 Cholesterol in VLDL [Mass/Vol] 12 mg/dL [facility] Glucose Glucometer (BldC) [M ass/Vol]Ordered By: Humberto Diaz on 05-03-2023 Glucose [Mass/Vol] 388 mg/dL [facility] Comment on above: Random Glucose Refer ence Range is dependent on time and content of last meal. Glucose of more than 200 mg/dL in a nonstressed, ambulatory subject supports the diagnosis of Diabetes Mellitus. Glucose Poct Glucometerson 1 Glucose [Mass/Vol] 385 mg/dL Normal [facility] Comment on above: Result Comment: [place] Glucose Reference Range is dependent on time and content of last meal. Glucose of more than 200 mg/dL in a nonstressed, ambulatory subject supports the diagnosis of Diabetes Mellitus. PERFORMED BY: [facility] [address] [place] [address] PATHOLOGIST [employer] AIR[employer] MAST M.D. Performed By: #### G LULS ####Point of Care testing, Glucose [Mass/Vol] 379 mg/dL Normal [facility] Comment on above: Result Comment: [place] Glucose Reference Range is dependent on time and content of last meal. Glucose of more than 200 mg/dL in a nonstressed, ambulatory subject supports the diagnosis of Diabetes Mellitus. PERFORMED BY: [facility] [address] [place] [address] PATHOLOGIST [employer] AIR[employer] MAST M.D. Performed By: #### G LULS ####Point of Care testing, Glucose [Mass/Vol] 388 mg/dL Normal [facility] Comment on above: Result Comment: [place] Glucose Reference Range is dependent on time and content of last meal. Glucose of more than 200 mg/dL in a nonstressed, ambulatory subject supports the diagnosis of Diabetes Mellitus. PERFORMED BY: [facility] [address] [place] [address] PATHOLOGIST [employer] AIRAM MAST M.D. Performed By: #### G LULS #### Point of Care testing , Glucose [Mass/Vol] 310 mg/dL Normal [facility] Comment on above: Result Comment: [facility] Glucose Reference Range is dependent on time and content of last meal. Glucose of more than 200 mg/dL in a nonstressed, ambulatory subject supports the diagnosis of Diabetes Mellitus. PERFORMED BY: [facility] [address] [place] [id number] PATHOLOGIST [employer] MAST M.D. Performed By: #### G LUMARYA #### Point of Care testing , Lipid Panelon 05-03-2023 Cholesterol [Mass/Vol] 98 mg/dL Low 140-200 [facility] Comment on above: Result Comment: Chol less than 200 mg/dl low risk Chol 201-239 mg/dl borderline risk Chol 240 mg/dl and greater high risk Performed By: #### L IPID ####[facility] [id number] [place] [id number] [facility] Cholesterol in HDL [Mass/Vol] 39 mg/dL Normal 23-92 [facility] Comment on above: Result Comment: HDL CHOL ATP-III CLASSIFICATION Cardiovascular Risk HDL > or equal to 60 mg/dL LOW HDL < 40 mg/dL HIGH Performed By: #### L IPID ####[facility] [id number] [place] [address] [facility] Cholesterol.total/Cho lesterol in HDL [Mass ratio] 2.5 {ratio} Normal <5.0 [facility] Comment on above: Result Comment: PERF ORMED BY: [facility] [address] [place] [address] PATHOLOGIST [employer] AIRAM MAST M.D. Performed By: #### L IPID ####[facility] [id number] [place] [address] [place] LDL Cholesterol,Calculate d 46 mg/dL Normal 0-100 [facility] Comment on above: Result Comment: LDL ATP III CLASSIFICATION LDL less than 100 mg/dL Optimal LDL 100-129 mg/dL Near or above optimal LDL 130-159 mg/dL Borderline high LDL 160-189 mg/dL High LDL greater than 189 mg/dL Very high Performed By: #### L IPID ####[facility] [id number] [address] Triglyceride w/Reflex 64 mg/dL Normal 0-149 [facility] Comment on above: Result Comment: TRIG ATP III CLASSIFICATION TRIG less than 150 mg/dL Normal TRIG 150-199 mg/dL Borderline high TRIG 200-500 mg/dL High TRIG greater than 500 mg/dL Very high Standard traceable to the Center for Disease Conrtrol and Prevention (CDC) test method. Performed By: #### L IPID ####[facility] [id number] [address] VLDL CHOLESTEROL 12 mg/dL Normal [facility] Comment on above: Performed By: #### L IPID ####[facility] [id number] [address] Serum or plasma high density lipoprotein (HDL) cholesterol measurementOrdered By: Anat Perez on 05-03-2023 Cholesterol in HDL [Mass/Vol] 39 mg/dL [facility] Comment on above: HDL CHOL ATP-III CLA SSIFICATION Cardiovascular RiskHDL > or equal to 60 mg/dL LOWHDL < 40 mg/dL HIGH Serum or plasma total choles terol/high density lipoprotein (HDL) cholesterol mass ratOrdered By: Anat Perez on 05-03-2023 Cholesterol.total/Cho lesterol in HDL [Mass ratio] 2.5 {ratio} <5.0 [facility] Triglyceride [Mass/volume] i n Serum or PlasmaOrdered By: Anat Perez on 05-03-2023 Triglyceride [Mass/Vol] 64 mg/dL 0-149 [facility] Comment on above: TRIG ATP III CLASSIF ICATIONTRIG less than 150 mg/dL NormalTRIG 150-199 mg/dL Borderline highTRIG 200-500 mg/dL High TRIG greater than 500 mg/dL Very highStandard traceable to the Center for Disease Conrtrol and Prevention (CDC) test method. Basic Metabolic Panelon 04-12 Anion gap [Moles/Vol] 8.1 mmol/L Normal 6.0-15.0 [facility] Comment on above: Performed By: #### B MP, CBC, LIPID ####[place] [id number] [place] [id number] [facility] Calcium [Mass/Vol] 8.0 mg/dL Low 8.6-10.3 [facility] Comment on above: Performed By: #### B MP, CBC, LIPID ####[place] [id number] [facility] Chloride [Moles/Vol] 97 mmol/L Low 98-107 [facility] Comment on above: Performed By: #### B MP, CBC, LIPID ####[place] [id number] CO2 [Moles/Vol] 30.1 mmol/L Normal 21.0-31.0 [facility] Comment on above: Performed By: #### B MP, CBC, LIPID ####[address] Creatinine [Mass/Vol] 0.86 mg/dL Normal 0.70-1.30 [facility] Comment on above: Performed By: #### B MP, CBC, LIPID ####[address] Creatinine Clr Calc Pharmacy 59.22 [facility] Comment on above: Performed By: #### B MP, CBC, LIPID ####[place] [id number] [facility] GFR/1.73 sq M.predicted MDRD (S/P/Bld) [Vol rate/Area] mL/min/{1.73_m2} [facility] Comment on above: Performed By: #### B MP, CBC, LIPID ####[place] [id number] [facility] Glucose [Mass/Vol] 87 mg/dL Normal 70-100 [facility] Comment on above: Result Comment: [facility] Glucose Reference Range is dependent on time and content of last meal. Glucose of more than 200 mg/dL in a nonstressed, ambulatory subject supports the diagnosis of Diabetes Mellitus. ADA recommended reference range Performed By: #### B MP, CBC, LIPID ####[facility] [id number] [address] Potassium [Moles/Vol] 4.2 mmol/L Normal 3.5-5.1 [facility] Comment on above: Performed By: #### B MP, CBC, LIPID ####[facility] [id number] [address] Sodium [Moles/Vol] 131 mmol/L Low 136-145 [facility] Comment on above: Performed By: #### B MP, CBC, LIPID ####[facility] [id number] [address] Urea nitrogen [Mass/Vol] 21 mg/dL Normal 7-25 [facility] Comment on above: Performed By: #### B MP, CBC, LIPID ####[facility] [id number] [address] Basophils Auto (Bld) [#/Vol] Ordered By: Sushant Cordon on 05-02-2023 Basophils (Bld) [#/Vol] 0.0 10*3/uL 0.0-0.2 [facility] Basophils/100 WBC Auto (Bld) Ordered By: Sushant Cordon on 05-02-2023 Basophils/100 WBC (Bld) 0.1 % . [facility] Calcium [Mass/volume] in Ser um or PlasmaOrdered By: Sushant Cordon on 05-02-2023 Calcium [Mass/Vol] 8.0 mg/dL 8.6-10.3 [facility] Carbon dioxide, total [Moles /volume] in Serum or PlasmaOrdered By: Sushant Cordon on 05-02-2023 CO2 [Moles/Vol] 30.1 mmol/L 21.0-31.0 [facility] Chloride [Moles/volume] in S jihan or PlasmaOrdered By: Sushant Cordon on 05-02-2023 Chloride [Moles/Vol] 97 mmol/L 98-107 [facility] Complete Blood Count Auto Di ffon 05-02-2023 Basophils (Bld) [#/Vol] 0.0 10*3/uL Normal 0.0-0.2 [facility] Comment on above: Result Comment: PERF ORMED BY: [facility] [address] [place] [address] PATHOLOGIST [employer] AIR[employer] MAST M.D. Performed By: #### B MP, CBC, LIPID ####[place] [id number] Basophils/100 WBC (Bld) 0.1 % Normal . [facility] Comment on above: Performed By: #### B MP, CBC, LIPID ####[place] [id number] [place] [id number] [facility] Eosinophils (Bld) [#/Vol] 0.1 10*3/uL Normal 0.0-0.45 [facility] Comment on above: Performed By: #### B MP, CBC, LIPID ####[address] Eosinophils/100 WBC (Bld) 0.8 % Normal . [facility] Comment on above: Performed By: #### B MP, CBC, LIPID ####[place] [id number] [facility] Erythrocyte distribution width (RBC) [Ratio] 17.0 % High 12.0-14.8 [facility] Comment on above: Performed By: #### B MP, CBC, LIPID ####[place] [id number] [facility] Hematocrit (Bld) [Volume fraction] 27.8 % Low 38.8-50.0 [facility] Comment on above: Performed By: #### B MP, CBC, LIPID ####[place] [id number] [facility] Hemoglobin (Bld) [Mass/Vol] 9.3 g/dL Low 13.0-17.0 [facility] Comment on above: Performed By: #### B MP, CBC, LIPID ####[place] [id number] Lymphocytes (Bld) [#/Vol] 1.2 10*3/uL Normal 1.00-4.8 [facility] Comment on above: Performed By: #### B MP, CBC, LIPID ####[place] [id number] [facility] Lymphocytes/100 WBC (Bld) 13.7 % Normal . [facility] Comment on above: Performed By: #### B MP, CBC, LIPID ####[address] MCH (RBC) [Entitic mass] 28.3 pg Normal 27.5-35.2 [facility] Comment on above: Performed By: #### B MP, CBC, LIPID ####[address] MCV (RBC) [Entitic vol] 84.2 fL Normal 83.5-101 [facility] Comment on above: Performed By: #### B MP, CBC, LIPID ####[address] Mean Corpuscular HGB Conc 33.6 g/dL Normal 32.5-35.6 [facility] Comment on above: Performed By: #### B MP, CBC, LIPID ####[address] Monocytes (Bld) [#/Vol] 1.2 10*3/uL High 0.0-0.8 [facility] Comment on above: Performed By: #### B MP, CBC, LIPID ####[place] [id number] [facility] Monocytes/100 WBC (Bld) 13.5 % Normal . [facility] Comment on above: Performed By: #### B MP, CBC, LIPID ####[address] Neutrophils (Bld) [#/Vol] 6.2 10*3/uL Normal 1.8-7.7 [facility] Comment on above: Performed By: #### B MP, CBC, LIPID ####[place] [id number] [facility] Neutrophils/100 WBC (Bld) 71.9 % Normal . [facility] Comment on above: Performed By: #### B MP, CBC, LIPID ####[place] [id number] [facility] NRBC% 0.0 /100{WBC} Normal 0-0.5 [facility] Comment on above: Performed By: #### B MP, CBC, LIPID ####[place] [id number] [place] [id number] [facility] Platelet mean volume (Bld) [Entitic vol] 9.3 fL Normal 6.6-10.1 [facility] Comment on above: Performed By: #### B MP, CBC, LIPID ####[address] Platelets (Bld) [#/Vol] 168 10*3/uL Normal 150-450 [facility] Comment on above: Performed By: #### B MP, CBC, LIPID ####[place] [id number] [facility] RBC (Bld) [#/Vol] 3.29 10*6/uL Low 3.90-5.60 [facility] Comment on above: Performed By: #### B MP, CBC, LIPID ####[place] [id number] [facility] WBC (Bld) [#/Vol] 8.6 10*3/uL Normal 4.1-10.5 [facility] Comment on above: Performed By: #### B MP, CBC, LIPID ####[place] [id number] [facility] Creatinine [Mass/volume] in Serum or PlasmaOrdered By: Sushant Cordon on 05-02-2023 Creatinine [Mass/Vol] 0.86 mg/dL 0.70-1.30 [facility] Eosinophils Auto (Bld) [#/Vo l]Ordered By: Sushant Cordon on 05-02-2023 Eosinophils (Bld) [#/Vol] 0.1 10*3/uL 0.0-0.45 [facility] Eosinophils/100 WBC Auto (Bl d)Ordered By: Sushant Cordon on 05-02-2023 Eosinophils/100 WBC (Bld) 0.8 % . [facility] Erythrocyte distribution wid th Auto (RBC) [Ratio]Ordered By: Sushant Cordon on 05-02-2023 Erythrocyte distribution width (RBC) [Ratio] 17.0 % 12.0-14.8 [facility] Glucose Poct Glucometerson 1 Glucose [Mass/Vol] 323 mg/dL Normal [facility] Comment on above: Result Comment: [facility] Glucose Reference Range is dependent on time and content of last meal. Glucose of more than 200 mg/dL in a nonstressed, ambulatory subject supports the diagnosis of Diabetes Mellitus. PERFORMED BY: [address] [place] [address] PATHOLOGIST [employer] MAST M.D. Performed By: #### G LULS #### Point of Care testing , Commemt1 Normal [facility] Comment on above: Result Comment: Glu2 : WILL NOTIFY DR/RN PERFORMED BY: [address] [place] [address] PATHOLOGIST [employer] MAST M.D. Performed By: #### G LULS ####Point of Care testing, Glucose [Mass/Vol] 427 mg/dL [facility] Comment on above: Result Comment: [facility] Glucose Reference Range is dependent on time and content of last meal. Glucose of more than 200 mg/dL in a nonstressed, ambulatory subject supports the diagnosis of Diabetes Mellitus. Performed By: #### G LULS ####Point of Care testing, Glucose [Mass/Vol] 376 mg/dL Normal [facility] Comment on above: Result Comment: [facility] Glucose Reference Range is dependent on time and content of last meal. Glucose of more than 200 mg/dL in a nonstressed, ambulatory subject supports the diagnosis of Diabetes Mellitus. PERFORMED BY: [facility] [address] [place] [address] PATHOLOGIST [employer] MA[employer] M.D. Performed By: #### G LULS ####Point of Care testing, Glucose [Mass/Vol] 73 mg/dL Normal [facility] Comment on above: Result Comment: [place] Glucose Reference Range is dependent on time and content of last meal. Glucose of more than 200 mg/dL in a nonstressed, ambulatory subject supports the diagnosis of Diabetes Mellitus. PERFORMED BY: [facility] [address] [place] [address] PATHOLOGIST [employer] MA[employer] M.D. Performed By: #### G LULS #### Point of Care testing , Glucose [Mass/Vol] 92 mg/dL Normal [facility] Comment on above: Result Comment: [facility] Glucose Reference Range is dependent on time and content of last meal. Glucose of more than 200 mg/dL in a nonstressed, ambulatory subject supports the diagnosis of Diabetes Mellitus. PERFORMED BY: [facility] [address] [place] [address] PATHOLOGIST [employer] M.D. Performed By: #### G LULS ####Point of Care testing, Glucose [Mass/volume] in Ser um or PlasmaOrdered By: Sushant Cordon on 05-02-2023 Glucose [Mass/Vol] 87 mg/dL 70-100 [facility] Comment on above: ADA recommended refe rence rangeRandom Glucose Reference Range is dependent on time and content of last meal. Glucose of more than 200 mg/dL in a nonstressed, ambulatory subject supports the diagnosis of Diabetes Mellitus. Hematocrit Auto (Bld) [Volum e fraction]Ordered By: Sushant Cordon on 05-02-2023 Hematocrit (Bld) [Volume fraction] 27.8 % 38.8-50.0 [facility] Hemoglobin [Mass/volume] in BloodOrdered By: Sushant Cordon on 05-02-2023 Hemoglobin (Bld) [Mass/Vol] 9.3 g/dL 13.0-17.0 [facility] Leukocytes [#/volume] correc robert for nucleated erythrocytes in Blood by Automated counOrdered By: Sushant Cordon on 05-02-2023 WBC corrected for nucl RBC Auto (Bld) [#/Vol] 8.6 10*3/uL 4.1-10.5 [facility] Lipid Panelon 05-02-2023 Cholesterol [Mass/Vol] 97 mg/dL Low 140-200 [facility] Comment on above: Result Comment: Chol less than 200 mg/dl low risk Chol 201-239 mg/dl borderline risk Chol 240 mg/dl and greater high risk Performed By: #### B MP, CBC, LIPID ####[facility] [id number] [place] [id number] [facility] Cholesterol in HDL [Mass/Vol] 43 mg/dL Normal 23-92 [facility] Comment on above: Result Comment: HDL CHOL ATP-III CLASSIFICATION Cardiovascular Risk HDL > or equal to 60 mg/dL LOW HDL < 40 mg/dL HIGH Performed By: #### B MP, CBC, LIPID ####[place] [id number] [place] [id number] [facility] Cholesterol.total/Cho lesterol in HDL [Mass ratio] 2.3 {ratio} Normal <5.0 [facility] Comment on above: Result Comment: PERF ORMED BY: [facility] [address] [place] [id number] PATHOLOGIST [employer] M.D. Performed By: #### B MP, CBC, LIPID ####[place] [address] [place] [address] [facility] LDL Cholesterol,Calculate d 43 mg/dL Normal 0-100 [facility] Comment on above: Result Comment: LDL ATP III CLASSIFICATION LDL less than 100 mg/dL Optimal LDL 100-129 mg/dL Near or above optimal LDL 130-159 mg/dL Borderline high LDL 160-189 mg/dL High LDL greater than 189 mg/dL Very high Performed By: #### B MP, CBC, LIPID ####[place] [address] Triglyceride w/Reflex 53 mg/dL Normal 0-149 [facility] Comment on above: Result Comment: TRIG ATP III CLASSIFICATION TRIG less than 150 mg/dL Normal TRIG 150-199 mg/dL Borderline high TRIG 200-500 mg/dL High TRIG greater than 500 mg/dL Very high Standard traceable to the Center for Disease Conrtrol and Prevention (CDC) test method. Performed By: #### B MP, CBC, LIPID ####[facility] [id number] VLDL CHOLESTEROL 10 mg/dL Normal [facility] Comment on above: Performed By: #### B MP, CBC, LIPID ####[facility] [id number] [address] Lymphocytes Auto (Bld) [#/Vo l]Ordered By: Sushant Cordon on 05-02-2023 Lymphocytes (Bld) [#/Vol] 1.2 10*3/uL 1.00-4.8 [facility] Lymphocytes/100 WBC Auto (Bl d)Ordered By: Sushant Cordon on 05-02-2023 Lymphocytes/100 WBC (Bld) 13.7 % . [facility] MCH Auto (RBC) [Entitic mass ]Ordered By: Sushant Cordon on 05-02-2023 MCH (RBC) [Entitic mass] 28.3 pg 27.5-35.2 [facility] MCHC Auto (RBC) [Mass/Vol]Or dered By: Sushant Cordon on 05-02-2023 MCHC (RBC) [Mass/Vol] 33.6 g/dL 32.5-35.6 [facility] MCV Auto (RBC) [Entitic vol] Ordered By: Sushant Cordon on 05-02-2023 MCV (RBC) [Entitic vol] 84.2 fL 83.5-101 [facility] Monocytes Auto (Bld) [#/Vol] Ordered By: Sushant Cordon on 05-02-2023 Monocytes (Bld) [#/Vol] 1.2 10*3/uL 0.0-0.8 [facility] Monocytes/100 WBC Auto (Bld) Ordered By: Sushant Cordon on 05-02-2023 Monocytes/100 WBC (Bld) 13.5 % . [facility] Neutrophils Auto (Bld) [#/Vo l]Ordered By: Sushant Cordon on 05-02-2023 Neutrophils (Bld) [#/Vol] 6.2 10*3/uL 1.8-7.7 [facility] Neutrophils/100 WBC Auto (Bl d)Ordered By: Sushant Cordon on 05-02-2023 Neutrophils/100 WBC (Bld) 71.9 % . [facility] No Panel InformationOrdered By: Sushant Cordon on 05-02-2023 Bedside Glucose Comment See comment [facility] Comment on above: Glu2: WILL NOTIFY DR /RN Estimated GFR (CKD-EPI) > 60.0 mL/Min [facility] Creatinine Clearance (Chem 59.22 [facility] Nucleated erythrocytes [Pres ence] in Blood by Automated countOrdered By: Sushant Cordon on 05-02-2023 Nucleated RBC Auto Ql (Bld) 0.0 /100{WBC} 0-0.5 [facility] Platelet mean volume Auto (B ld) [Entitic vol]Ordered By: Sushant Cordon on 05-02-2023 Platelet mean volume (Bld) [Entitic vol] 9.3 fL 6.6-10.1 [facility] Platelets Auto (Bld) [#/Vol] Ordered By: Sushant Cordon on 05-02-2023 Platelets (Bld) [#/Vol] 168 10*3/uL 150-450 [facility] Potassium [Moles/volume] in Serum or PlasmaOrdered By: Sushant Cordon on 05-02-2023 Potassium [Moles/Vol] 4.2 mmol/L 3.5-5.1 [facility] RBC Auto (Bld) [#/Vol]Ordere d By: Ssuhant Cordon on 05-02-2023 RBC (Bld) [#/Vol] 3.29 10*6/uL 3.90-5.60 [facility] Serum or plasma anion gap de terminationOrdered By: Sushant Cordon on 05-02-2023 Anion gap [Moles/Vol] 8.1 mmol/L 6.0-15.0 [facility] Sodium [Moles/volume] in Ser um or PlasmaOrdered By: Sushant Cordon on 05-02-2023 Sodium [Moles/Vol] 131 mmol/L 136-145 [facility] Urea nitrogen [Mass/volume] in Serum or PlasmaOrdered By: Sushant Cordon on 05-02-2023 Urea nitrogen [Mass/Vol] 21 mg/dL 7- [facility] WBC Auto (Bld) [#/Vol]Ordere d By: Sushant Cordon on 05-02-2023 WBC (Bld) [#/Vol] 8.6 10*3/uL 4.1-10.5 [facility] Basic Metabolic Panelon 04-12 Anion gap [Moles/Vol] 8.6 mmol/L Normal 6.0-15.0 [facility] Comment on above: Performed By: #### C BC, BMP, LIPID ####[facility] Calcium [Mass/Vol] 8.0 mg/dL Low 8.6-10.3 [facility] Comment on above: Performed By: #### C BC, BMP, LIPID ####[facility] [place] [id number] [facility] Chloride [Moles/Vol] 97 mmol/L Low 98-107 [facility] Comment on above: Performed By: #### C BC, BMP, LIPID ####[facility] [place] [address] [facility] CO2 [Moles/Vol] 32.9 mmol/L High 21.0-31.0 [facility] Comment on above: Performed By: #### C BC, BMP, LIPID ####[facility] [place] [id number] [facility] Creatinine [Mass/Vol] 0.77 mg/dL Normal 0.70-1.30 [facility] Comment on above: Performed By: #### C SHARAN WALKER, LIPID ####[place] [id number] [place] [id number] [facility] Creatinine Clr Calc Pharmacy 63.00 [facility] Comment on above: Performed By: #### C SHARAN WALKER, LIPID ####[place] [address] GFR/1.73 sq M.predicted MDRD (S/P/Bld) [Vol rate/Area] mL/min/{1.73_m2} [facility] Comment on above: Performed By: #### C SHARAN WALKER, LIPID ####[place] [address] Glucose [Mass/Vol] 86 mg/dL Normal 70-100 [facility] Comment on above: Result Comment: [place] Glucose Reference Range is dependent on time and content of last meal. Glucose of more than 200 mg/dL in a nonstressed, ambulatory subject supports the diagnosis of Diabetes Mellitus. ADA recommended reference range Performed By: #### C SHARAN WALKER, LIPID ####[address] Potassium [Moles/Vol] 4.5 mmol/L Normal 3.5-5.1 [facility] Comment on above: Performed By: #### C DENISE BMP, LIPID ####[address] Sodium [Moles/Vol] 134 mmol/L Low 136-145 [facility] Comment on above: Performed By: #### C SHARAN WALKER, LIPID ####[place] [id number] [place] [id number] [facility] Urea nitrogen [Mass/Vol] 17 mg/dL Normal 7-25 [facility] Comment on above: Performed By: #### C DENISE BMP, LIPID ####[place] [id number] [place] [id number] [facility] Complete Blood Count Auto Di ffon 05-01-2023 Basophils (Bld) [#/Vol] 0.0 10*3/uL Normal 0.0-0.2 [facility] Comment on above: Result Comment: PERF ORMED BY: [facility] [address] [place] [address] PATHOLOGIST [employer] AIRAM MAST M.D. Performed By: #### C BC, BMP, LIPID ####[address] Basophils/100 WBC (Bld) 0.3 % Normal . [facility] Comment on above: Performed By: #### C BC, BMP, LIPID ####[address] Eosinophils (Bld) [#/Vol] 0.0 10*3/uL Normal 0.0-0.45 [facility] Comment on above: Performed By: #### C BC, BMP, LIPID ####[address] Eosinophils/100 WBC (Bld) 0.6 % Normal . [facility] Comment on above: Performed By: #### C BC, BMP, LIPID ####[address] Erythrocyte distribution width (RBC) [Ratio] 17.7 % High 12.0-14.8 [facility] Comment on above: Performed By: #### C BC, BMP, LIPID ####[address] Hematocrit (Bld) [Volume fraction] 29.9 % Low 38.8-50.0 [facility] Comment on above: Performed By: #### C BC, BMP, LIPID ####[address] Hemoglobin (Bld) [Mass/Vol] 9.8 g/dL Low 13.0-17.0 [facility] Comment on above: Performed By: #### C BC, BMP, LIPID ####[address] Lymphocytes (Bld) [#/Vol] 1.5 10*3/uL Normal 1.00-4.8 [facility] Comment on above: Performed By: #### C BC, BMP, LIPID ####[address] Lymphocytes/100 WBC (Bld) 16.8 % Normal . [facility] Comment on above: Performed By: #### C BC, BMP, LIPID ####[address] MCH (RBC) [Entitic mass] 27.8 pg Normal 27.5-35.2 [facility] Comment on above: Performed By: #### C BC, BMP, LIPID ####[address] MCV (RBC) [Entitic vol] 84.5 fL Normal 83.5-101 [facility] Comment on above: Performed By: #### C BC, BMP, LIPID ####[address] Mean Corpuscular HGB Conc 32.9 g/dL Normal 32.5-35.6 [facility] Comment on above: Performed By: #### C BC, BMP, LIPID ####[address] Monocytes (Bld) [#/Vol] 1.2 10*3/uL High 0.0-0.8 [facility] Comment on above: Performed By: #### C BC, BMP, LIPID ####[address] Monocytes/100 WBC (Bld) 14.1 % Normal . [facility] Comment on above: Performed By: #### C BC, BMP, LIPID ####[address] Neutrophils (Bld) [#/Vol] 6.0 10*3/uL Normal 1.8-7.7 [facility] Comment on above: Performed By: #### C BC, BMP, LIPID ####[facility] [place] [address] [facility] Neutrophils/100 WBC (Bld) 68.2 % Normal . [facility] Comment on above: Performed By: #### C BC, BMP, LIPID ####[facility] [place] [address] [facility] NRBC% 0.1 /100{WBC} Normal 0-0.5 [facility] Comment on above: Performed By: #### C BC, BMP, LIPID ####[place] [address] [place] [address] [facility] Platelet mean volume (Bld) [Entitic vol] 9.5 fL Normal 6.6-10.1 [facility] Comment on above: Performed By: #### C BC, BMP, LIPID ####[address] [address] [facility] Platelets (Bld) [#/Vol] 156 10*3/uL Normal 150-450 [facility] Comment on above: Performed By: #### C BC, BMP, LIPID ####[place] [address] [place] [address] [facility] RBC (Bld) [#/Vol] 3.54 10*6/uL Low 3.90-5.60 [facility] Comment on above: Performed By: #### C BC, BMP, LIPID ####[place] [address] [place] [address] [facility] WBC (Bld) [#/Vol] 8.8 10*3/uL Normal 4.1-10.5 [facility] Comment on above: Performed By: #### C BC, BMP, LIPID ####[place] [address] [place] [address] [facility] Glucose Poct Glucometerson 1 Commemt1 Glu2: Cleaned Meter Normal [facility] Comment on above: Result Comment: PERF ORMED BY: [facility] [address] [place] [address] PATHOLOGIST [employer] JIANLAN SUN M.D. Performed By: #### G LULS #### Point of Care testing , Glucose [Mass/Vol] 340 mg/dL Normal [facility] Comment on above: Result Comment: [place] om Glucose Reference Range is dependent on time and content of last meal. Glucose of more than 200 mg/dL in a nonstressed, ambulatory subject supports the diagnosis of Diabetes Mellitus. Performed By: #### G LULS #### Point of Care testing , Glucose [Mass/Vol] 194 mg/dL Normal [facility] Comment on above: Result Comment: [place] om Glucose Reference Range is dependent on time and content of last meal. Glucose of more than 200 mg/dL in a nonstressed, ambulatory subject supports the diagnosis of Diabetes Mellitus. PERFORMED BY: [address] [place] [address] PATHOLOGIST [employer] AIRAM MAST M.D. Performed By: #### G LULS #### Point of Care testing , Commemt1 Glu2: Cleaned Meter [facility] Comment on above: Result Comment: PERF ORMED BY: [address] [place] [address] PATHOLOGIST [employer] AIRAM MAST M.D. Performed By: #### G LULS ####Point of Care testing, Glucose [Mass/Vol] 131 mg/dL Normal [facility] Comment on above: Result Comment: [place] om Glucose Reference Range is dependent on time and content of last meal. Glucose of more than 200 mg/dL in a nonstressed, ambulatory subject supports the diagnosis of Diabetes Mellitus. Performed By: #### G LULS ####Point of Care testing, Commemt1 Glu2: Cleaned Meter [facility] Comment on above: Result Comment: PERF ORMED BY: [address] [place] [address] PATHOLOGIST [employer] AIRAM MAST M.D. Performed By: #### G LULS ####Point of Care testing, Glucose [Mass/Vol] 85 mg/dL Normal [facility] Comment on above: Result Comment: [place] om Glucose Reference Range is dependent on time and content of last meal. Glucose of more than 200 mg/dL in a nonstressed, ambulatory subject supports the diagnosis of Diabetes Mellitus. Performed By: #### G LULS ####Point of Care testing, Glucose [Mass/Vol] 295 mg/dL Normal [facility] Comment on above: Result Comment: [place] om Glucose Reference Range is dependent on time and content of last meal. Glucose of more than 200 mg/dL in a nonstressed, ambulatory subject supports the diagnosis of Diabetes Mellitus. PERFORMED BY: [facility] [address] [place] [id number] PATHOLOGIST [employer] AIRAM MAST M.D. Performed By: #### G RIOS ####Point of Care testing, Lipid Panelon 05-01-2023 Cholesterol [Mass/Vol] 107 mg/dL Low 140-200 [facility] Comment on above: Result Comment: Chol less than 200 mg/dl low risk Chol 201-239 mg/dl borderline risk Chol 240 mg/dl and greater high risk Performed By: #### C BC, BMP, LIPID ####[place] [id number] [facility] Cholesterol in HDL [Mass/Vol] 51 mg/dL Normal 23-92 [facility] Comment on above: Result Comment: HDL CHOL ATP-III CLASSIFICATION Cardiovascular Risk HDL > or equal to 60 mg/dL LOW HDL < 40 mg/dL HIGH Performed By: #### C BC, BMP, LIPID ####[place] [id number] [facility] Cholesterol.total/Cho lesterol in HDL [Mass ratio] 2.1 {ratio} Normal <5.0 [facility] Comment on above: Result Comment: PERF ORMED BY: [facility] [address] [place] [address] PATHOLOGIST [employer] AIRAM MAST M.D. Performed By: #### C BC, BMP, LIPID ####[place] [address] [place] [address] [facility] LDL Cholesterol,Calculate d 50 mg/dL Normal 0-100 [facility] Comment on above: Result Comment: LDL ATP III CLASSIFICATION LDL less than 100 mg/dL Optimal LDL 100-129 mg/dL Near or above optimal LDL 130-159 mg/dL Borderline high LDL 160-189 mg/dL High LDL greater than 189 mg/dL Very high Performed By: #### C DENISE BMP, LIPID ####[facility] [place] [id number] [facility] Triglyceride w/Reflex 30 mg/dL Normal 0-149 [facility] Comment on above: Result Comment: TRIG ATP III CLASSIFICATION TRIG less than 150 mg/dL Normal TRIG 150-199 mg/dL Borderline high TRIG 200-500 mg/dL High TRIG greater than 500 mg/dL Very high Standard traceable to the Center for Disease Conrtrol and Prevention (CDC) test method. Performed By: #### C SHARAN WALKER, LIPID ####[place] [address] VLDL CHOLESTEROL 6 mg/dL Normal [facility] Comment on above: Performed By: #### C SHARAN WALKER, LIPID ####[place] [address] [place] [id number] [facility] Activated partial thrombopla stin time (aPTT) in platelet poor plasma by coagulation aOrdered By: Anat Perez on 04-30-2023 aPTT Coag (PPP) [Time] 30.6 s 25.1-36.5 [facility] Comment on above: A hematocrit value g reater than 55% may lead to inaccurate results in coagulation testing. Patients having hematocrit values >55% require a special collection tube for coagulation studies. Please contact the laboratory at [phone] for redraw instructions. B-Type Natriuretic Peptideon 04-30-2023 Natriuretic peptide B (Bld) [Mass/Vol] 523.0 pg/mL High 5-100 [facility] Comment on above: Result Comment: PERF ORMED BY: [facility] [address] [place] [id number] PATHOLOGIST [employer] AIRAM MAST M.D. Performed By: #### B TITRATOR ####[place] [address] Natriuretic peptide B (Bld) [Mass/Vol] 630.0 pg/mL High 5-100 [facility] Comment on above: Result Comment: PERF ORMED BY: [facility] [address] [facility] [place] [address] PATHOLOGIST [employer] AIRAM MAST M.D. Performed By: #### B TITRATOR, HS TROP, BMP, PTT, PT, CBC ####[place] [id number] [facility] Basic Metabolic Panelon 10 Anion gap [Moles/Vol] 7.9 mmol/L Normal 6.0-15.0 [facility] Comment on above: Performed By: #### B TITRATOR, HS TROP, BMP, PTT, PT, CBC ####[address] Calcium [Mass/Vol] 8.4 mg/dL Low 8.6-10.3 [facility] Comment on above: Performed By: #### B TITRATOR, HS TROP, BMP, PTT, PT, CBC ####[place] [id number] [facility] Chloride [Moles/Vol] 96 mmol/L Low 98-107 [facility] Comment on above: Performed By: #### B TITRATOR, HS TROP, BMP, PTT, PT, CBC ####[place] [id number] [facility] CO2 [Moles/Vol] 33.2 mmol/L High 21.0-31.0 [facility] Comment on above: Performed By: #### B TITRATOR, HS TROP, BMP, PTT, PT, CBC ####[place] [id number] [facility] Creatinine [Mass/Vol] 0.68 mg/dL Low 0.70-1.30 [facility] Comment on above: Performed By: #### B TITRATOR, HS TROP, BMP, PTT, PT, CBC ####[place] [id number] [facility] Creatinine Clr Calc Pharmacy 57.66 [facility] Comment on above: Result Comment: PERF ORMED BY: [facility] [address] [place] [id number] PATHOLOGIST [employer] AIRAM MAST M.D. Performed By: #### B TITRATOR, HS TROP, BMP, PTT, PT, CBC ####[place] [address] [place] [id number] [facility] GFR/1.73 sq M.predicted MDRD (S/P/Bld) [Vol rate/Area] mL/min/{1.73_m2} Normal [facility] Comment on above: Performed By: #### B TITRATOR, HS TROP, BMP, PTT, PT, CBC ####[place] [address] [place] [id number] [facility] Glucose [Mass/Vol] 163 mg/dL High 70-100 [facility] Comment on above: Result Comment: [facility] Glucose Reference Range is dependent on time and content of last meal. Glucose of more than 200 mg/dL in a nonstressed, ambulatory subject supports the diagnosis of Diabetes Mellitus. ADA recommended reference range Performed By: #### B TITRATOR, HS TROP, BMP, PTT, PT, CBC ####[place] [address] [place] [address] [facility] Potassium [Moles/Vol] 4.1 mmol/L Normal 3.5-5.1 [facility] Comment on above: Performed By: #### B TITRATOR, HS TROP, BMP, PTT, PT, CBC ####[place] [address] [place] [id number] [facility] Sodium [Moles/Vol] 133 mmol/L Low 136-145 [facility] Comment on above: Performed By: #### B TITRATOR, HS TROP, BMP, PTT, PT, CBC ####[place] [address] [place] [id number] [place] Urea nitrogen [Mass/Vol] 12 mg/dL Normal 7-25 [facility] Comment on above: Performed By: #### B TITRATOR, HS TROP, BMP, PTT, PT, CBC ####[place] [address] [place] [id number] [facility] Anion gap [Moles/Vol] 5.4 mmol/L Low 6.0-15.0 [facility] Comment on above: Performed By: #### C BC, BMP ####[place] [address] [place] [address] [place] Calcium [Mass/Vol] 8.5 mg/dL Low 8.6-10.3 [facility] Comment on above: Performed By: #### C BC, BMP ####[facility] [place] [address] [place] Chloride [Moles/Vol] 98 mmol/L Normal 98-107 [facility] Comment on above: Performed By: #### C BC, BMP ####[place] [address] [place] [address] [facility] CO2 [Moles/Vol] 35.0 mmol/L High 21.0-31.0 [facility] Comment on above: Performed By: #### C BC, BMP ####[place] [address] [place] [address] [facility] Creatinine [Mass/Vol] 0.71 mg/dL Normal 0.70-1.30 [facility] Comment on above: Performed By: #### C BC, BMP ####[place] [address] [place] [address] [place] Creatinine Clr Calc Pharmacy 57.66 [facility] Comment on above: Result Comment: PERF ORMED BY: [facility] [address] [place] [id number] PATHOLOGIST [employer] AIRAM MAST M.D. Performed By: #### C BC, BMP ####[place] [address] [place] [address] [place] GFR/1.73 sq M.predicted MDRD (S/P/Bld) [Vol rate/Area] mL/min/{1.73_m2} [facility] Comment on above: Performed By: #### C BC, BMP ####[place] [address] [place] [address] [place] Glucose [Mass/Vol] 72 mg/dL Normal 70-100 [facility] Comment on above: Result Comment: [place] Glucose Reference Range is dependent on time and content of last meal. Glucose of more than 200 mg/dL in a nonstressed, ambulatory subject supports the diagnosis of Diabetes Mellitus. ADA recommended reference range Performed By: #### C BC, BMP ####[place] [address] [place] [address] [facility] Potassium [Moles/Vol] 4.4 mmol/L Normal 3.5-5.1 [facility] Comment on above: Performed By: #### C BC, BMP ####[place] [address] [place] [address] [facility] Sodium [Moles/Vol] 134 mmol/L Low 136-145 [facility] Comment on above: Performed By: #### C BC, BMP ####[place] [address] [place] [address] [facility] Urea nitrogen [Mass/Vol] 12 mg/dL Normal 7-25 [facility] Comment on above: Performed By: #### C BC, BMP ####[place] [address] [place] [id number] [facility] Coagulation Profileon 2022 aPTT Coag (Bld) [Time] 29.5 s Normal 25.1-36.5 [facility] Comment on above: Result Comment: A he matocrit value greater than 55% may lead to inaccurate results in coagulation testing. Patients having hematocrit values >55% require a special collection tube for coagulation studies. Please contact the laboratory at [phone] for redraw instructions. PERFORMED BY: [facility] [address] [place] [id number] PATHOLOGIST [employer] AIRAM MAST M.D. Performed By: #### P P ####[place] [id number] [facility] INR Coag (PPP) [Relative time] 1.2 {INR} Normal [facility] Comment on above: Result Comment: INR [...] - 4.5 Performed By: #### P P ####[address] PT Coag (PPP) [Time] 14.8 s High 9.0-12.9 [facility] Comment on above: Result Comment: A he matocrit value greater than 55% may lead to inaccurate results in coagulation testing. Patients having hematocrit values >55% require a special collection tube for coagulation studies. Please contact the laboratory at [phone] for redraw instructions. Performed By: #### P P ####[address] Complete Blood Count Auto Di ffon 04-30-2023 Basophils (Bld) [#/Vol] 0.0 10*3/uL Normal 0.0-0.2 [facility] Comment on above: Result Comment: PERF ORMED BY: [facility] [address] [place] [address] PATHOLOGIST [employer] AIRAM MAST M.D. Performed By: #### B TITRATOR, HS TROP, BMP, PTT, PT, CBC ####[address] Basophils/100 WBC (Bld) 0.3 % Normal . [facility] Comment on above: Performed By: #### B TITRATOR, HS TROP, BMP, PTT, PT, CBC ####[address] Eosinophils (Bld) [#/Vol] 0.0 10*3/uL Normal 0.0-0.45 [facility] Comment on above: Performed By: #### B TITRATOR, HS TROP, BMP, PTT, PT, CBC ####[address] Eosinophils/100 WBC (Bld) 0.0 % Normal . [facility] Comment on above: Performed By: #### B TITRATOR, HS TROP, BMP, PTT, PT, CBC ####[address] Erythrocyte distribution width (RBC) [Ratio] 17.8 % High 12.0-14.8 [facility] Comment on above: Performed By: #### B TITRATOR, HS TROP, BMP, PTT, PT, CBC ####[address] Hematocrit (Bld) [Volume fraction] 35.8 % Low 38.8-50.0 [facility] Comment on above: Performed By: #### B TITRATOR, HS TROP, BMP, PTT, PT, CBC ####[address] Hemoglobin (Bld) [Mass/Vol] 11.8 g/dL Low 13.0-17.0 [facility] Comment on above: Performed By: #### B TITRATOR, HS TROP, BMP, PTT, PT, CBC ####[address] Lymphocytes (Bld) [#/Vol] 0.6 10*3/uL Low 1.00-4.8 [facility] Comment on above: Performed By: #### B TITRATOR, HS TROP, BMP, PTT, PT, CBC ####[address] Lymphocytes/100 WBC (Bld) 5.9 % Normal . [facility] Comment on above: Performed By: #### B TITRATOR, HS TROP, BMP, PTT, PT, CBC ####[address] MCH (RBC) [Entitic mass] 27.9 pg Normal 27.5-35.2 [facility] Comment on above: Performed By: #### B TITRATOR, HS TROP, BMP, PTT, PT, CBC ####[address] MCV (RBC) [Entitic vol] 84.7 fL Normal 83.5-101 [facility] Comment on above: Performed By: #### B TITRATOR, HS TROP, BMP, PTT, PT, CBC ####[address] Mean Corpuscular HGB Conc 32.9 g/dL Normal 32.5-35.6 [facility] Comment on above: Performed By: #### B TITRATOR, HS TROP, BMP, PTT, PT, CBC ####[address] Monocytes (Bld) [#/Vol] 1.4 10*3/uL High 0.0-0.8 [facility] Comment on above: Performed By: #### B TITRATOR, HS TROP, BMP, PTT, PT, CBC ####[address] Monocytes/100 WBC (Bld) 14.6 % Normal . [facility] Comment on above: Performed By: #### B TITRATOR, HS TROP, BMP, PTT, PT, CBC ####[address] Neutrophils (Bld) [#/Vol] 7.4 10*3/uL Normal 1.8-7.7 [facility] Comment on above: Performed By: #### B TITRATOR, HS TROP, BMP, PTT, PT, CBC ####[address] Neutrophils/100 WBC (Bld) 79.2 % Normal . [facility] Comment on above: Performed By: #### B TITRATOR, HS TROP, BMP, PTT, PT, CBC ####[address] NRBC% 0.1 /100{WBC} Normal 0-0.5 [facility] Comment on above: Performed By: #### B TITRATOR, HS TROP, BMP, PTT, PT, CBC ####[address] Platelet mean volume (Bld) [Entitic vol] 9.9 fL Normal 6.6-10.1 [facility] Comment on above: Performed By: #### B TITRATOR, HS TROP, BMP, PTT, PT, CBC ####[place] [address] Platelets (Bld) [#/Vol] 194 10*3/uL Normal 150-450 [facility] Comment on above: Performed By: #### B TITRATOR, HS TROP, BMP, PTT, PT, CBC ####[address] RBC (Bld) [#/Vol] 4.23 10*6/uL Normal 3.90-5.60 [facility] Comment on above: Performed By: #### B TITRATOR, HS TROP, BMP, PTT, PT, CBC ####[address] WBC (Bld) [#/Vol] 9.3 10*3/uL Normal 4.1-10.5 [facility] Comment on above: Performed By: #### B TITRATOR, HS TROP, BMP, PTT, PT, CBC ####[address] Basophils (Bld) [#/Vol] 0.0 10*3/uL Normal 0.0-0.2 [facility] Comment on above: Result Comment: PERF ORMED BY: [facility] [address] [place] [address] PATHOLOGIST [employer] AIRAM MAST M.D. Performed By: #### C BC, BMP ####[address] Basophils/100 WBC (Bld) 0.4 % Normal . [facility] Comment on above: Performed By: #### C BC, BMP ####[place] [address] [place] Eosinophils (Bld) [#/Vol] 0.1 10*3/uL Normal 0.0-0.45 [facility] Comment on above: Performed By: #### C BC, BMP ####[place] [address] [place] Eosinophils/100 WBC (Bld) 0.6 % Normal . [facility] Comment on above: Performed By: #### C BC, BMP ####[address] Erythrocyte distribution width (RBC) [Ratio] 18.0 % High 12.0-14.8 [facility] Comment on above: Performed By: #### C BC, BMP ####[place] [id number] [facility] Hematocrit (Bld) [Volume fraction] 33.7 % Low 38.8-50.0 [facility] Comment on above: Performed By: #### C DENISE, BMP ####[address] Hemoglobin (Bld) [Mass/Vol] 11.2 g/dL Low 13.0-17.0 [facility] Comment on above: Performed By: #### C DENISE, BMP ####[address] Lymphocytes (Bld) [#/Vol] 2.0 10*3/uL Normal 1.00-4.8 [facility] Comment on above: Performed By: #### C DENISE, BMP ####[address] Lymphocytes/100 WBC (Bld) 22.0 % Normal . [facility] Comment on above: Performed By: #### C DENISE, BMP ####[address] MCH (RBC) [Entitic mass] 28.1 pg Normal 27.5-35.2 [facility] Comment on above: Performed By: #### C BC, BMP ####[place] [id number] [facility] MCV (RBC) [Entitic vol] 84.7 fL Normal 83.5-101 [facility] Comment on above: Performed By: #### C BC, BMP ####[place] [id number] [facility] Mean Corpuscular HGB Conc 33.2 g/dL Normal 32.5-35.6 [facility] Comment on above: Performed By: #### C BC, BMP ####[place] [id number] [facility] Monocytes (Bld) [#/Vol] 1.5 10*3/uL High 0.0-0.8 [facility] Comment on above: Performed By: #### C BC, BMP ####[place] [id number] [facility] Monocytes/100 WBC (Bld) 16.4 % Normal . [facility] Comment on above: Performed By: #### C DENISE, BMP ####[address] Neutrophils (Bld) [#/Vol] 5.4 10*3/uL Normal 1.8-7.7 [facility] Comment on above: Performed By: #### C DENISE, BMP ####[place] [id number] [facility] Neutrophils/100 WBC (Bld) 60.6 % Normal . [facility] Comment on above: Performed By: #### C DENISE, BMP ####[place] [id number] [facility] NRBC% 0.1 /100{WBC} Normal 0-0.5 [facility] Comment on above: Performed By: #### C BC, BMP ####[place] [id number] [facility] Platelet mean volume (Bld) [Entitic vol] 9.1 fL Normal 6.6-10.1 [facility] Comment on above: Performed By: #### C BC, BMP ####[place] [id number] [facility] Platelets (Bld) [#/Vol] 173 10*3/uL Normal 150-450 [facility] Comment on above: Performed By: #### C BC, BMP ####[place] [id number] [facility] RBC (Bld) [#/Vol] 3.98 10*6/uL Normal 3.90-5.60 [facility] Comment on above: Performed By: #### C DENISE, BMP ####[place] [id number] [place] [id number] [facility] WBC (Bld) [#/Vol] 9.0 10*3/uL Normal 4.1-10.5 [facility] Comment on above: Performed By: #### C DENISE, BMP ####[facility] [place] [id number] [facility] ECG 12 lead ECGon 04-30-2023 ECG 12 lead ECG [facility] Main [place] [address] [place] [address] Electrocardiograph Report Signed Patient: Ashwini Vickers MR#: [id number] 353 : 1935 Acct:[id number] Age/Sex: 88 / M ADM Date: 04/28/23 Loc: Room: [address] [place] [address] Type: ADM IN Attending Dr: Sushant Cordon [...] Septal infarct present Confirmed by ADIS OGLESBY [facility] ([id number] on 05/02/2023 10:47:33 AM Referred By: Electronically Signed By:GEENA VALENTE MD [facility] Transcribed By: MUS Signed By Adrián Valente MD 05/02/23 1047 [facility] Glucose Poct Glucometerson 1 Commemt1 Glu2: Cleaned Meter [facility] Comment on above: Result Comment: PERF ORMED BY: [facility] [address] [place] [id number] PATHOLOGIST [employer] MAST M.D. Performed By: #### G LULS #### Point of Care testing , Glucose [Mass/Vol] 375 mg/dL Normal [facility] Comment on above: Result Comment: [place] om Glucose Reference Range is dependent on time and content of last meal. Glucose of more than 200 mg/dL in a nonstressed, ambulatory subject supports the diagnosis of Diabetes Mellitus. Performed By: #### G LULS #### Point of Care testing , Glucose [Mass/Vol] 162 mg/dL Normal [facility] Comment on above: Result Comment: [place] om Glucose Reference Range is dependent on time and content of last meal. Glucose of more than 200 mg/dL in a nonstressed, ambulatory subject supports the diagnosis of Diabetes Mellitus. PERFORMED BY: [address] [place] [address] PATHOLOGIST [employer] AIRAM MAST M.D. Performed By: #### G LULS ####Point of Care testing, Glucose [Mass/Vol] 149 mg/dL Normal [facility] Comment on above: Result Comment: [place] [facility] Glucose Reference Range is dependent on time and content of last meal. Glucose of more than 200 mg/dL in a nonstressed, ambulatory subject supports the diagnosis of Diabetes Mellitus. PERFORMED BY: [address] [place] [address] PATHOLOGIST [employer] AIRAM MAST M.D. Performed By: #### G LULS ####Point of Care testing, Commemt1 Glu2: Cleaned Meter Normal [facility] Comment on above: Result Comment: PERF ORMED BY: [facility] [address] [place] [address] PATHOLOGIST [employer] AIR[employer] MAST M.D. Performed By: #### G LULS #### Point of Care testing , Glucose [Mass/Vol] 130 mg/dL Normal [facility] Comment on above: Result Comment: [place] [facility] Glucose Reference Range is dependent on time and content of last meal. Glucose of more than 200 mg/dL in a nonstressed, ambulatory subject supports the diagnosis of Diabetes Mellitus. Performed By: #### G LULS #### Point of Care testing , Glucose [Mass/Vol] 118 mg/dL Normal [facility] Comment on above: Result Comment: [place] [facility] Glucose Reference Range is dependent on time and content of last meal. Glucose of more than 200 mg/dL in a nonstressed, ambulatory subject supports the diagnosis of Diabetes Mellitus. PERFORMED BY: [address] [place] [id number] PATHOLOGIST [employer] AIRAM MAST M.D. Performed By: #### G LULS ####Point of Care testing, Glucose [Mass/Vol] 83 mg/dL Normal [facility] Comment on above: Result Comment: [place] om Glucose Reference Range is dependent on time and content of last meal. Glucose of more than 200 mg/dL in a nonstressed, ambulatory subject supports the diagnosis of Diabetes Mellitus. PERFORMED BY: [address] [place] [id number] PATHOLOGIST [employer] AIR[employer] MAST M.D. Performed By: #### G LULS #### Point of Care testing , Commemt1 [facility] Comment on above: Result Comment: Glu2 : WILL NOTIFY DR/RN PERFORMED BY: [address] [place] [address] PATHOLOGIST [employer] AIRAM MAST M.D. Performed By: #### G LULS ####Point of Care testing, Glucose [Mass/Vol] 53 mg/dL Off scale low [facility] Comment on above: Result Comment: [place] Glucose Reference Range is dependent on time and content of last meal. Glucose of more than 200 mg/dL in a nonstressed, ambulatory subject supports the diagnosis of Diabetes Mellitus. Performed By: #### G LULS ####Point of Care testing, Glucose [Mass/Vol] 75 mg/dL Normal [facility] Comment on above: Result Comment: [place] Glucose Reference Range is dependent on time and content of last meal. Glucose of more than 200 mg/dL in a nonstressed, ambulatory subject supports the diagnosis of Diabetes Mellitus. PERFORMED BY: [facility] [address] [facility] [place] [address] PATHOLOGIST [employer] MAST M.D. Performed By: #### G LULS #### Point of Care testing , Glucose [Mass/Vol] 63 mg/dL Normal [facility] Comment on above: Result Comment: [facility] Glucose Reference Range is dependent on time and content of last meal. Glucose of more than 200 mg/dL in a nonstressed, ambulatory subject supports the diagnosis of Diabetes Mellitus. PERFORMED BY: [facility] [address] [facility] [place] [address] PATHOLOGIST [employer] AIRAM MAST M.D. Performed By: #### G LULS ####Point of Care testing, Glucose [Mass/Vol] 133 mg/dL Normal [facility] Comment on above: Result Comment: [facility] Glucose Reference Range is dependent on time and content of last meal. Glucose of more than 200 mg/dL in a nonstressed, ambulatory subject supports the diagnosis of Diabetes Mellitus. PERFORMED BY: [facility] [address] [facility] [place] [address] PATHOLOGIST [employer] AIR[employer] MAST M.D. Performed By: #### G LULS ####Point of Care testing, Glucose [Mass/Vol] 68 mg/dL Normal [facility] Comment on above: Result Comment: [facility] Glucose Reference Range is dependent on time and content of last meal. Glucose of more than 200 mg/dL in a nonstressed, ambulatory subject supports the diagnosis of Diabetes Mellitus. PERFORMED BY: [facility] [address] [facility] [place] [address] PATHOLOGIST [employer] MAST M.D. Performed By: #### G LULS ####Point of Care testing, INR in Platelet poor plasma by Coagulation assayOrdered By: Anat Perez on 04-30-2023 INR Coag (PPP) [Relative time] 1.3 {INR} [facility] Comment on above: INR Therapeutic Rang [...] peptide B (Bld) [Mass/Vol] 523.0 pg/mL 5-100 [facility] Partial Thromboplastin Timeo n 04-30-2023 aPTT Coag (Bld) [Time] 30.6 s Normal 25.1-36.5 [facility] Comment on above: Result Comment: A he matocrit value greater than 55% may lead to inaccurate results in coagulation testing. Patients having hematocrit values >55% require a special collection tube for coagulation studies. Please contact the laboratory at [phone] for redraw instructions. PERFORMED BY: [facility] [address] [place] [id number] PATHOLOGIST [employer] MAST M.D. Performed By: #### B TITRATOR, HS TROP, BMP, PTT, PT, CBC ####[place] [id number] [place] [id number] [facility] Prothrombin Time INRon 04-30 INR Coag (PPP) [Relative time] 1.3 {INR} Normal [facility] Comment on above: Result Comment: INR [...] 3 - 4.5 Performed By: #### B TITRATOR, HS TROP, BMP, PTT, PT, CBC ####[facility] [place] [address] [facility] PT Coag (PPP) [Time] 15.6 s High 9.0-12.9 [facility] Comment on above: Result Comment: A he matocrit value greater than 55% may lead to inaccurate results in coagulation testing. Patients having hematocrit values >55% require a special collection tube for coagulation studies. Please contact the laboratory at [phone] for redraw instructions. Performed By: #### B TITRATOR, HS TROP, BMP, PTT, PT, CBC ####[place] [id number] [facility] Prothrombin time (PT)Ordered By: Anat Perez on 04-30-2023 PT Coag (PPP) [Time] 15.6 s 9.0-12.9 [facility] Comment on above: A hematocrit value g reater than 55% may lead to inaccurate results in coagulation testing. Patients having hematocrit values >55% require a special collection tube for coagulation studies. Please contact the laboratory at [phone] for redraw instructions. Troponin I High Sensitivityo n 04-30-2023 Troponin I High Sensitivity 53.7 pg/mL Off scale high 0.0-20.0 [facility] Comment on above: Result Comment: Crit ical Result : Called to and read back by: STEVEN BYRD at: 04/30/2023 19:24:20 by:[id number] PERFORMED BY: [address] [place] [address] PATHOLOGIST [employer] AIRAM MAST M.D. Performed By: #### H S TROP ####[place] [id number] [facility] Troponin I High Sensitivity 26.1 pg/mL High 0.0-20.0 [facility] Comment on above: Result Comment: PERF ORMED BY: [facility] [address] [place] [address] PATHOLOGIST [employer] MAST M.D. Performed By: #### H S TROP ####[place] [id number] [facility] Troponin I High Sensitivity 24.6 pg/mL High 0.0-20.0 [facility] Comment on above: Result Comment: PERF ORMED BY: [facility] [address] [facility] [place] [address] PATHOLOGIST [employer] MAST M.D. Performed By: #### B TITRATOR, HS TROP, BMP, PTT, PT, CBC ####[facility] [address] [place] [address] [facility] Troponin I High Sensitivity 26.8 pg/mL High 0.0-20.0 [facility] Comment on above: Result Comment: PERF ORMED BY: [place] [id number] PATHOLOGIST [employer] MAST M.D. Performed By: #### G LULS #### Point of Care testing , Troponin I.cardiac [Mass/vol ume] in Serum or Plasma by Detection limit <= 0.01 ng/Ordered By: Anat Perez on 04-30-2023 Troponin I.cardiac DL <= 0.01 ng/mL [Mass/Vol] 53.7 pg/mL 0.0-20.0 [facility] Comment on above: Critical Result : Ca lled to and read back by: STEVEN BYRD at: 04/30/2023 19:24:20 by:[id number] Type and Screenon 04-30-2023 ABO and Rh group Nom (Bld) Blood group A Rh(D) positive Normal [facility] Comment on above: Result Comment: PERF ORMED BY: [address] [address] PATHOLOGIST [employer] MAST M.D. XR chest 1V portableon 04-30 XR chest 1V portable [facility] Main [address] [address] XRay Report Signed Patient: Ashwini Vickers MR#: [id number] 353 : 1935 Acct:[id number] Age/Sex: 88 / M ADM Date: 04/28/23 Loc: 4N Room: 9B0907-2 Type: ADM IN Attending Dr: Sushant Cordon [...] Sheldon Johnson M.D.04/30/2023 10:16 AM Dictation Location: [place] [address] Transcribed By: [facility] 04/30/23 1016 Dictated By: Sheldon Johnson DO 04/30/23 1010 Signed By: 04/30/23 1016 Normal [facility] XR hip RT min 2V(w/wo pelvis )*on 04-30-2023 XR hip RT min 2V(w/wo pelvis)* [facility] Main [place] [address] [place] [address] XRay Report Signed Patient: Ashwini Vickers MR#: [id number] 353 : 1935 Acct:[id number] Age/Sex: 88 / M ADM Date: 04/28/23 Loc: Room: [address] [place] [address] Type: ADM IN Attending Dr: Sushant Cordon DO Copies to: MD Sushant Carlos DO Ordering Provider: Ashwini Conrad MD Date of Service: 04/30/23 XR/XR hip RT min 2V(w/wo pelvis)*: RT HIP TFN ([id number]) XR/XR hip RT min 2V(w/wo pelvis)*: Hip [...] Sofia Rosales M.D.04/30/2023 6:32 PM Dictation Location: [place] [address] Transcribed By: [facility] 04/30/231831 Dictated By: Sofia Rosales MD 04/30/231827 Signed By: 04/30/231831 [facility] Basic Metabolic Panelon - Anion gap [Moles/Vol] 8.5 mmol/L Normal 6.0-15.0 [facility] Comment on above: Order Comment: FASTI NG Y Performed By: #### G LULS #### Point of Care testing , Calcium [Mass/Vol] 8.4 mg/dL Low 8.6-10.3 [facility] Comment on above: Order Comment: FASTI NG Y Performed By: #### G LULS #### Point of Care testing , Chloride [Moles/Vol] 100 mmol/L Normal 98-107 [facility] Comment on above: Order Comment: FASTI NG Y Performed By: #### G LULS #### Point of Care testing , CO2 [Moles/Vol] 32.3 mmol/L High 21.0-31.0 [facility] Comment on above: Order Comment: FASTI NG Y Performed By: #### G LULS #### Point of Care testing , Creatinine [Mass/Vol] 0.79 mg/dL Normal 0.70-1.30 [facility] Comment on above: Order Comment: FASTI NG Y Performed By: #### G LULS #### Point of Care testing , Creatinine Clr Calc Pharmacy 57.75 [facility] Comment on above: Order Comment: FASTI NG Y Performed By: #### G LULS #### Point of Care testing , GFR/1.73 sq M.predicted MDRD (S/P/Bld) [Vol rate/Area] mL/min/{1.73_m2} Normal [facility] Comment on above: Order Comment: FASTI NG Y Performed By: #### G LULS #### Point of Care testing , Glucose [Mass/Vol] 106 mg/dL High 70-100 [facility] Comment on above: Order Comment: FASTI NG Y Result Comment: [facility] Glucose Reference Range is dependent on time and content of last meal. Glucose of more than 200 mg/dL in a nonstressed, ambulatory subject supports the diagnosis of Diabetes Mellitus. ADA recommended reference range Performed By: #### G LULS #### Point of Care testing , Potassium [Moles/Vol] 4.8 mmol/L Normal 3.5-5.1 [facility] Comment on above: Order Comment: FASTI NG Y Performed By: #### G LULS #### Point of Care testing , Sodium [Moles/Vol] 136 mmol/L Normal 136-145 [facility] Comment on above: Order Comment: FASTI NG Y Performed By: #### G LULS #### Point of Care testing , Urea nitrogen [Mass/Vol] 15 mg/dL Normal 7-25 [facility] Comment on above: Order Comment: FASTI NG Y Performed By: #### G LULS #### Point of Care testing , Complete Blood Count Auto Di ffon 04-29-2023 Basophils (Bld) [#/Vol] 0.0 10*3/uL Normal 0.0-0.2 [facility] Comment on above: Result Comment: PERF ORMED BY: [facility] [address] [place] [address] PATHOLOGIST [employer] MA[employer] M.D. Performed By: #### G LULS #### Point of Care testing , Basophils/100 WBC (Bld) 0.3 % Normal . [facility] Comment on above: Performed By: #### G LULS #### Point of Care testing , Eosinophils (Bld) [#/Vol] 0.1 10*3/uL Normal 0.0-0.45 [facility] Comment on above: Performed By: #### Aileen NATION #### Point of Care testing , Eosinophils/100 WBC (Bld) 1.3 % Normal . [facility] Comment on above: Performed By: #### Aileen NATION #### Point of Care testing , Erythrocyte distribution width (RBC) [Ratio] 18.3 % High 12.0-14.8 [facility] Comment on above: Performed By: #### Aileen NATION #### Point of Care testing , Hematocrit (Bld) [Volume fraction] 32.9 % Low 38.8-50.0 [facility] Comment on above: Performed By: #### Aileen NATION #### Point of Care testing , Hemoglobin (Bld) [Mass/Vol] 10.9 g/dL Low 13.0-17.0 [facility] Comment on above: Performed By: #### Aileen NATION #### Point of Care testing , Lymphocytes (Bld) [#/Vol] 2.0 10*3/uL Normal 1.00-4.8 [facility] Comment on above: Performed By: #### Aileen NATION #### Point of Care testing , Lymphocytes/100 WBC (Bld) 26.5 % Normal . [facility] Comment on above: Performed By: #### Aileen NATION #### Point of Care testing , MCH (RBC) [Entitic mass] 28.0 pg Normal 27.5-35.2 [facility] Comment on above: Performed By: #### Aileen NATION #### Point of Care testing , MCV (RBC) [Entitic vol] 84.9 fL Normal 83.5-101 [facility] Comment on above: Performed By: #### Aileen SUMMERSLS #### Point of Care testing , Mean Corpuscular HGB Conc 33.0 g/dL Normal 32.5-35.6 [facility] Comment on above: Performed By: #### Aileen NATION #### Point of Care testing , Monocytes (Bld) [#/Vol] 1.1 10*3/uL High 0.0-0.8 [facility] Comment on above: Performed By: #### G LULS #### Point of Care testing , Monocytes/100 WBC (Bld) 14.9 % Normal . [facility] Comment on above: Performed By: #### G LULS #### Point of Care testing , Neutrophils (Bld) [#/Vol] 4.3 10*3/uL Normal 1.8-7.7 [facility] Comment on above: Performed By: #### G LULS #### Point of Care testing , Neutrophils/100 WBC (Bld) 57.0 % Normal . [facility] Comment on above: Performed By: #### G LULS #### Point of Care testing , NRBC% 0.1 /100{WBC} Normal 0-0.5 [facility] Comment on above: Performed By: #### G LULS #### Point of Care testing , Platelet mean volume (Bld) [Entitic vol] 9.3 fL Normal 6.6-10.1 [facility] Comment on above: Performed By: #### G LULS #### Point of Care testing , Platelets (Bld) [#/Vol] 186 10*3/uL Normal 150-450 [facility] Comment on above: Performed By: #### G LULS #### Point of Care testing , RBC (Bld) [#/Vol] 3.88 10*6/uL Low 3.90-5.60 [facility] Comment on above: Performed By: #### G LULS #### Point of Care testing , WBC (Bld) [#/Vol] 7.5 10*3/uL Normal 4.1-10.5 [facility] Comment on above: Performed By: #### G LULS #### Point of Care testing , ECH echo transthoracicon [facility] echo transthoracic [facility] [place] [address] Echocardiogram Signed Patient: Ashwini Vickers MR#: [id number] 353 : 1935 Acct:[id number] Age/Sex: 88 / M ADM Date: 04/28/23 Loc: 4 Room: [id number] Type: ADM IN Attending Dr: Sushant Cordon [...] By: Adrián Valente MD 04/29/23 1118 Normal [facility] Ferritinon 04-29-2023 Ferritin [Mass/Vol] 41.5 ng/mL Normal 23.9-336.2 [facility] Comment on above: Order Comment: FASTI NG Y Performed By: #### G LULS #### Point of Care testing , Ferritin [Mass/volume] in Se rum or PlasmaOrdered By: Sushant Cordon on 04-29-2023 Ferritin [Mass/Vol] 41.5 ng/mL 23.9-336.2 [facility] Folate [Mass/volume] in Seru m or PlasmaOrdered By: Sushant Cordon on 04-29-2023 Folate [Mass/Vol] 28.0 ng/mL >5.9 [facility] Comment on above: Folate reference ran ge: >5.9 ng/mlThe WHO technical consultation on folate and vitamin [id number] has determined that folate concentrations lessthan 4 ng/ml are considered deficient. Glucose Poct Glucometerson 1 Glucose [Mass/Vol] 323 mg/dL Normal [facility] Comment on above: Result Comment: [place] Glucose Reference Range is dependent on time and content of last meal. Glucose of more than 200 mg/dL in a nonstressed, ambulatory subject supports the diagnosis of Diabetes Mellitus. PERFORMED BY: [facility] [address] [place] [address] PATHOLOGIST [employer] MAST M.D. Performed By: #### G LULS ####Point of Care testing, Glucose [Mass/Vol] 238 mg/dL Normal [facility] Comment on above: Result Comment: [facility] Glucose Reference Range is dependent on time and content of last meal. Glucose of more than 200 mg/dL in a nonstressed, ambulatory subject supports the diagnosis of Diabetes Mellitus. PERFORMED BY: [facility] [address] [place] [address] PATHOLOGIST FRAME [employer] M.[employer]. Performed By: #### G LULS #### Point of Care testing , Commemt1 Glu2: Cleaned Meter [facility] Comment on above: Result Comment: PERF ORMED BY: [address] [place] [address] PATHOLOGIST FRAME [employer] M.D. Performed By: #### G LULS ####Point of Care testing, Glucose [Mass/Vol] 81 mg/dL Normal [facility] Comment on above: Result Comment: [place] om Glucose Reference Range is dependent on time and content of last meal. Glucose of more than 200 mg/dL in a nonstressed, ambulatory subject supports the diagnosis of Diabetes Mellitus. Performed By: #### G LULS ####Point of Care testing, Glucose [Mass/Vol] 141 mg/dL [facility] Comment on above: Result Comment: [place] om Glucose Reference Range is dependent on time and content of last meal. Glucose of more than 200 mg/dL in a nonstressed, ambulatory subject supports the diagnosis of Diabetes Mellitus. PERFORMED BY: [address] [place] [address] PATHOLOGIST [employer]AME [employer] M.D. Performed By: #### G LULS #### Point of Care testing , Glucose [Mass/Vol] 87 mg/dL [facility] Comment on above: Result Comment: [place] om Glucose Reference Range is dependent on time and content of last meal. Glucose of more than 200 mg/dL in a nonstressed, ambulatory subject supports the diagnosis of Diabetes Mellitus. PERFORMED BY: [address] [place] [address] PATHOLOGIST [employer]AME [employer] M.D. Performed By: #### G LULS ####Point of Care testing, Commemt1 Glu2: Cleaned Meter [facility] Comment on above: Performed By: #### G LULS ####Point of Care testing, Commemt2 WILL NOTIFY DR/KARIN Vasques [facility] Comment on above: Result Comment: PERF ORMED BY: [facility] [address] [facility] [place] [address] PATHOLOGIST [employer]AME [employer] M.D. Performed By: #### G LULS ####Point of Care testing, Glucose [Mass/Vol] 53 mg/dL Off scale [facility] Comment on above: Result Comment: [place] om Glucose Reference Range is dependent on time and content of last meal. Glucose of more than 200 mg/dL in a nonstressed, ambulatory subject supports the diagnosis of Diabetes Mellitus. Performed By: #### G LULS ####Point of Care testing, Commemt1 Glu2: Cleaned Meter [facility] Comment on above: Performed By: #### G LULS ####Point of Care testing, Commemt2 WILL NOTIFY /KARIN [facility] Comment on above: Result Comment: PERF ORMED BY: [address] [place] [address] PATHOLOGIST [employer] M.D. Performed By: #### G LULS ####Point of Care testing, Glucose [Mass/Vol] 47 mg/dL Off scale [facility] Comment on above: Result Comment: [place] om Glucose Reference Range is dependent on time and content of last meal. Glucose of more than 200 mg/dL in a nonstressed, ambulatory subject supports the diagnosis of Diabetes Mellitus. Performed By: #### G LULS ####Point of Care testing, Commemt1 Glu2: Cleaned Meter [facility] Comment on above: Result Comment: PERF ORMED BY: [address] [place] [address] PATHOLOGIST [employer] M.D. Performed By: #### G LULS ####Point of Care testing, Glucose [Mass/Vol] 58 mg/dL Off scale [facility] Comment on above: Result Comment: [place] om Glucose Reference Range is dependent on time and content of last meal. Glucose of more than 200 mg/dL in a nonstressed, ambulatory subject supports the diagnosis of Diabetes Mellitus. Performed By: #### G LULS ####Point of Care testing, Commemt1 Glu2: Cleaned Meter Normal [facility] Comment on above: Result Comment: PERF ORMED BY: [facility] [address] [place] [address] PATHOLOGIST [employer] M.D. Performed By: #### G LULS ####Point of Care testing, Glucose [Mass/Vol] 59 mg/dL Off scale low [facility] Comment on above: Result Comment: [facility] Glucose Reference Range is dependent on time and content of last meal. Glucose of more than 200 mg/dL in a nonstressed, ambulatory subject supports the diagnosis of Diabetes Mellitus. Performed By: #### G LULS ####Point of Care testing, Iron [Mass/volume] in Serum or PlasmaOrdered By: Sushant Cordon on 04-29-2023 Iron [Mass/Vol] 45 ug/dL 50-212 [facility] Iron and TIBC Profileon 04-11 % Iron Saturation 13.6 % Low 20-50 [facility] Comment on above: Order Comment: FASTI NG Y Performed By: #### G LULS #### Point of Care testing , Iron [Mass/Vol] 45 ug/dL Low 50-212 [facility] Comment on above: Order Comment: FASTI NG Y Performed By: #### G LULS #### Point of Care testing , Total Iron Binding Capacity 330 ug/dL Normal 255-450 [facility] Comment on above: Order Comment: FASTI NG Y Performed By: #### G LULS #### Point of Care testing , Transferrin [Mass/Vol] 236 mg/dL Normal 203-362 [facility] Comment on above: Order Comment: FASTI NG Y Performed By: #### G LULS #### Point of Care testing , Iron binding capacity [Mass/ volume] in Serum or PlasmaOrdered By: Sushant Cordon on 04-29-2023 Iron binding capacity [Mass/Vol] 330 ug/dL 255-450 [facility] Iron saturation [Mass Fracti on] in Serum or PlasmaOrdered By: Sushant Cordon on 04-29-2023 Iron saturation [Mass fraction] 13.6 % 20-50 [facility] Lipid Panelon 04-29-2023 Cholesterol [Mass/Vol] 143 mg/dL Normal 140-200 [facility] Comment on above: Order Comment: FASTI NG Y Result Comment: Chol less than 200 mg/dl low risk Chol 201-239 mg/dl borderline risk Chol 240 mg/dl and greater high risk Performed By: #### G LULS #### Point of Care testing , Cholesterol in HDL [Mass/Vol] 57 mg/dL Normal 23-92 [facility] Comment on above: Order Comment: FASTI NG Y Result Comment: HDL CHOL ATP-III CLASSIFICATION Cardiovascular Risk HDL > or equal to 60 mg/dL LOW HDL < 40 mg/dL HIGH Performed By: #### G LULS #### Point of Care testing , Cholesterol.total/Cho lesterol in HDL [Mass ratio] 2.5 {ratio} Normal <5.0 [facility] Comment on above: Order Comment: FASTI NG Y Performed By: #### G LULS #### Point of Care testing , LDL Cholesterol,Calculate d 80 mg/dL Normal 0-100 [facility] Comment on above: Order Comment: FASTI NG Y Result Comment: LDL ATP III CLASSIFICATION LDL less than 100 mg/dL Optimal LDL 100-129 mg/dL Near or above optimal LDL 130-159 mg/dL Borderline high LDL 160-189 mg/dL High LDL greater than 189 mg/dL Very high Performed By: #### G LULS #### Point of Care testing , Triglyceride w/Reflex 32 mg/dL Normal 0-149 [facility] Comment on above: Order Comment: FASTI [...] testing , VLDL CHOLESTEROL 6 mg/dL Normal [facility] Comment on above: Order Comment: FASTI NG Y Performed By: #### G LULS #### Point of Care testing , Magnesiumon 04-29-2023 Magnesium [Mass/Vol] 1.9 mg/dL Normal 1.9-2.7 [facility] Comment on above: Order Comment: FASTI NG Y Performed By: #### G LULS #### Point of Care testing , Magnesium [Mass/volume] in S jihan or PlasmaOrdered By: Sushant Codron on 04-29-2023 Magnesium [Mass/Vol] 1.9 mg/dL 1.9-2.7 [facility] No Panel InformationOrdered By: Sushant Cordon on 04-29-2023 Bedside Glucose #[address]/rn [facility] Transferrin [Mass/volume] in Serum or PlasmaOrdered By: Sushant Cordon on 04-29-2023 Transferrin [Mass/Vol] 236 mg/dL 203-362 [facility] Troponin I High Sensitivityo n 04-29-2023 Troponin I High Sensitivity 32.5 pg/mL High 0.0-20.0 [facility] Comment on above: Result Comment: PERF ORMED BY: [facility] [address] [place] [address] PATHOLOGIST [employer]AME [employer] M.D. Performed By: #### H S TROP ####[facility] [id number] [place] [address] [facility] Vit. B12/Folate Profileon Cobalamin (Vitamin B12) [Mass/Vol] 626 pg/mL Normal 180-914 [facility] Comment on above: Order Comment: FASTI NG Y Performed By: #### G LULS #### Point of Care testing , Folate 28.0 ng/mL Normal >5.9 [facility] Comment on above: Order Comment: FASTI NG Y Result Comment: [place] te reference range: >5.9 ng/ml The WHO technical consultation on folate and vitamin b12 deficiencies has determined that folate concentrations less than 4 ng/ml are considered deficient. PERFORMED BY: [facility] [address] [place] [address] PATHOLOGIST [employer] M.D. Performed By: #### G KRISTOPHER #### Point of Care testing , Vitamin B12 ser/plasOrdered By: Sushant Cordon on 04-29-2023 Cobalamin (Vitamin B12) [Mass/Vol] 626 pg/mL 180-914 [facility] A1C with Estimated Average G kirill 04-28-2023 Glucose [Mass/Vol] 309 mg/dL Normal [facility] Comment on above: Result Comment: PERF ORMED BY: [facility] [address] [place] [id number] PATHOLOGIST FR[employer] M.D. Performed By: #### A 1C [facility] eA ####[place] [address] [place] [address] [facility] HbA1c (Bld) [Mass fraction] 12.4 % High 4.3-5.6 [facility] Comment on above: Result Comment: Incr eased risk for diabetes: 5.7 - 6.4 diabetes: >6.4 glycemic control for adults with diabetes: <7.0 Performed By: #### A 1C [facility] eA ####[address] [address] [facility] ABO/Rh Retypeon 04-28-2023 ABO/RH Recheck Result Positive Normal [facility] Comment on above: Result Comment: PERF ORMED BY: [facility] [address] [place] [address] PATHOLOGIST [employer] M.D. Activated partial thrombopla stin time (aPTT) in platelet poor plasma by coagulation aOrdered By: Vinnie Rivas on 04-28-2023 aPTT Coag (PPP) [Time] 27.8 s 25.1-36.5 [facility] Comment on above: A hematocrit value g reater than 55% may lead to inaccurate results in coagulation testing. Patients having hematocrit values >55% require a special collection tube for coagulation studies. Please contact the laboratory at [phone] for redraw instructions. Alanine aminotransferase [En zymatic activity/volume] in Serum or PlasmaOrdered By: Vinnie Rivas on 04-28-2023 ALT [Catalytic activity/Vol] 34 U/L 7-52 [facility] Albumin [Mass/volume] in Ser um or Plasma by Bromocresol green (BCG) dye binding methoOrdered By: Vinnie Rivas on 04-28-2023 Albumin BCG dye [Mass/Vol] 4.0 g/dL 3.5-5.7 [facility] Alkaline phosphatase [Enzyma tic activity/volume] in Serum or PlasmaOrdered By: Vinnie Rivas on 04-28-2023 ALP [Catalytic activity/Vol] 108 U/L 34-104 [facility] Aspartate aminotransferase [ Enzymatic activity/volume] in Serum or PlasmaOrdered By: Vinnie Rivas on 04-28-2023 AST [Catalytic activity/Vol] 46 U/L 13-39 [facility] Automated urine color determ inationOrdered By: Vinnie Rivas on 04-28-2023 Color (U) Yellow Normal Yellow [facility] Comment on above: Order Comment: Name Collection Type:: Kimble Catheter Performed By: #### U A ####[place] [id number] [place] [id number] [facility] B-Type Natriuretic Peptideon 04-28-2023 Natriuretic peptide B (Bld) [Mass/Vol] 665.0 pg/mL High 5-100 [facility] Comment on above: Result Comment: PERF ORMED BY: [facility] [address] [place] [address] PATHOLOGIST [employer] M.D. Performed By: #### P T, CMP, CBC, BNP, HS TROP, PTT ####[address] [address] [place] [address] [facility] Basophils Auto (Bld) [#/Vol] Ordered By: Vinnie Rivas on 04-28-2023 Basophils (Bld) [#/Vol] 0.0 10*3/uL 0.0-0.2 [facility] Basophils/100 WBC Auto (Bld) Ordered By: Vinnie Rivas on 04-28-2023 Basophils/100 WBC (Bld) 0.4 % . [facility] Bilirubin Test strip Ql (U)O rdered By: Vinnie Rivas on 04-28-2023 Bilirubin Ql (U) Negative Negative [facility] Bilirubin.total [Mass/volume ] in Serum or PlasmaOrdered By: Vinnie Rivas on 04-28-2023 Bilirubin [Mass/Vol] 0.3 mg/dL 0.3-1.0 [facility] Calcium [Mass/volume] in Ser um or PlasmaOrdered By: Vinnie Rivas on 04-28-2023 Calcium [Mass/Vol] 9.0 mg/dL 8.6-10.3 [facility] Carbon dioxide, total [Moles /volume] in Serum or PlasmaOrdered By: Vinnie Rivas on 04-28-2023 CO2 [Moles/Vol] 30.4 mmol/L 21.0-31.0 [facility] Chloride [Moles/volume] in S jihan or PlasmaOrdered By: Vinnie Rivas on 04-28-2023 Chloride [Moles/Vol] 101 mmol/L 98-107 [facility] Complete Blood Count Auto Di ffon 04-28-2023 Basophils (Bld) [#/Vol] 0.0 10*3/uL Normal 0.0-0.2 [facility] Comment on above: Result Comment: PERF ORMED BY: [facility] [address] [place] [address] PATHOLOGIST [employer] M.D. Performed By: #### P T, CMP, CBC, BNP, HS TROP, PTT ####[address] Basophils/100 WBC (Bld) 0.4 % Normal . [facility] Comment on above: Performed By: #### P T, CMP, CBC, BNP, HS TROP, PTT ####[address] Eosinophils (Bld) [#/Vol] 0.0 10*3/uL Normal 0.0-0.45 [facility] Comment on above: Performed By: #### P T, CMP, CBC, BNP, HS TROP, PTT ####[address] Eosinophils/100 WBC (Bld) 0.5 % Normal . [facility] Comment on above: Performed By: #### P T, CMP, CBC, BNP, HS TROP, PTT ####[address] Erythrocyte distribution width (RBC) [Ratio] 18.0 % High 12.0-14.8 [facility] Comment on above: Performed By: #### P T, CMP, CBC, BNP, HS TROP, PTT ####[address] Hematocrit (Bld) [Volume fraction] 34.8 % Low 38.8-50.0 [facility] Comment on above: Performed By: #### P T, CMP, CBC, BNP, HS TROP, PTT ####[address] Hemoglobin (Bld) [Mass/Vol] 11.5 g/dL Low 13.0-17.0 [facility] Comment on above: Performed By: #### P T, CMP, CBC, BNP, HS TROP, PTT ####[address] Lymphocytes (Bld) [#/Vol] 1.4 10*3/uL Normal 1.00-4.8 [facility] Comment on above: Performed By: #### P T, CMP, CBC, BNP, HS TROP, PTT ####[address] Lymphocytes/100 WBC (Bld) 14.8 % Normal . [facility] Comment on above: Performed By: #### P T, CMP, CBC, BNP, HS TROP, PTT ####[address] MCH (RBC) [Entitic mass] 28.0 pg Normal 27.5-35.2 [facility] Comment on above: Performed By: #### P T, CMP, CBC, BNP, HS TROP, PTT ####[place] [address] MCV (RBC) [Entitic vol] 84.3 fL Normal 83.5-101 [facility] Comment on above: Performed By: #### P T, CMP, CBC, BNP, HS TROP, PTT ####[address] Mean Corpuscular HGB Conc 33.2 g/dL Normal 32.5-35.6 [facility] Comment on above: Performed By: #### P T, CMP, CBC, BNP, HS TROP, PTT ####[address] Monocytes (Bld) [#/Vol] 0.9 10*3/uL High 0.0-0.8 [facility] Comment on above: Performed By: #### P T, CMP, CBC, BNP, HS TROP, PTT ####[address] Monocytes/100 WBC (Bld) 18.61 % Normal 0.00-20.00 [facility] Comment on above: Performed By: #### P T, CMP, CBC, BNP, HS TROP, PTT ####[address] Monocytes/100 WBC (Bld) 9.3 % Normal . [facility] Comment on above: Performed By: #### P T, CMP, CBC, BNP, HS TROP, PTT ####[address] Neutrophils (Bld) [#/Vol] 7.3 10*3/uL Normal 1.8-7.7 [facility] Comment on above: Performed By: #### P T, CMP, CBC, BNP, HS TROP, PTT ####[address] Neutrophils/100 WBC (Bld) 75.0 % Normal . [facility] Comment on above: Performed By: #### P T, CMP, CBC, BNP, HS TROP, PTT ####[address] [place] [address] [place] NRBC% 0.1 /100{WBC} Normal 0-0.5 [facility] Comment on above: Performed By: #### P T, CMP, CBC, BNP, HS TROP, PTT ####[address] Platelet mean volume (Bld) [Entitic vol] 9.3 fL Normal 6.6-10.1 [facility] Comment on above: Performed By: #### P T, CMP, CBC, BNP, HS TROP, PTT ####[address] Platelets (Bld) [#/Vol] 206 10*3/uL Normal 150-450 [facility] Comment on above: Performed By: #### P T, CMP, CBC, BNP, HS TROP, PTT ####[address] RBC (Bld) [#/Vol] 4.12 10*6/uL Normal 3.90-5.60 [facility] Comment on above: Performed By: #### P T, CMP, CBC, BNP, HS TROP, PTT ####[address] WBC (Bld) [#/Vol] 9.7 10*3/uL Normal 4.1-10.5 [facility] Comment on above: Performed By: #### P T, CMP, CBC, BNP, HS TROP, PTT ####[address] Comprehensive Metabolic Pane fabby 04-28-2023 Albumin [Mass/Vol] 4.0 g/dL Normal 3.5-5.7 [facility] Comment on above: Performed By: #### P T, CMP, CBC, BNP, HS TROP, PTT ####[address] Albumin/Globulin [Mass ratio] 1.3 {ratio} Normal [facility] Comment on above: Performed By: #### P T, CMP, CBC, BNP, HS TROP, PTT ####[place] [id number] [facility] ALP [Catalytic activity/Vol] 108 U/L High 34-104 [facility] Comment on above: Performed By: #### P T, CMP, CBC, BNP, HS TROP, PTT ####[place] [id number] [facility] ALT [Catalytic activity/Vol] 34 U/L Normal 7-52 [facility] Comment on above: Performed By: #### P T, CMP, CBC, BNP, HS TROP, PTT ####[place] [id number] [facility] Anion gap [Moles/Vol] 9.5 mmol/L Normal 6.0-15.0 [facility] Comment on above: Performed By: #### P T, CMP, CBC, BNP, HS TROP, PTT ####[address] AST [Catalytic activity/Vol] 46 U/L High 13-39 [facility] Comment on above: Performed By: #### P T, CMP, CBC, BNP, HS TROP, PTT ####[place] [id number] [facility] Bilirubin [Mass/Vol] 0.3 mg/dL Normal 0.3-1.0 [facility] Comment on above: Performed By: #### P T, CMP, CBC, BNP, HS TROP, PTT ####[place] [id number] [facility] Calcium [Mass/Vol] 9.0 mg/dL Normal 8.6-10.3 [facility] Comment on above: Performed By: #### P T, CMP, CBC, BNP, HS TROP, PTT ####[place] [id number] [facility] Chloride [Moles/Vol] 101 mmol/L Normal 98-107 [facility] Comment on above: Performed By: #### P T, CMP, CBC, BNP, HS TROP, PTT ####[address] [place] [address] [facility] CO2 [Moles/Vol] 30.4 mmol/L Normal 21.0-31.0 [facility] Comment on above: Performed By: #### P T, CMP, CBC, BNP, HS TROP, PTT ####[address] [place] [address] [facility] Creatinine [Mass/Vol] 0.71 mg/dL Normal 0.70-1.30 [facility] Comment on above: Performed By: #### P T, CMP, CBC, BNP, HS TROP, PTT ####[address] [place] [address] [facility] Creatinine Clr Calc Pharmacy 60.38 [facility] Comment on above: Result Comment: PERF ORMED BY: [facility] [address] [place] [address] PATHOLOGIST [employer] M.D. Performed By: #### P T, CMP, CBC, BNP, HS TROP, PTT ####[place] [id number] [facility] GFR/1.73 sq M.predicted MDRD (S/P/Bld) [Vol rate/Area] mL/min/{1.73_m2} [facility] Comment on above: Performed By: #### P T, CMP, CBC, BNP, HS TROP, PTT ####[place] [id number] [place] [id number] [facility] Globulin (S) [Mass/Vol] 3.2 g/dL [facility] Comment on above: Performed By: #### P T, CMP, CBC, BNP, HS TROP, PTT ####[id number] [place] [id number] [facility] Glucose [Mass/Vol] 124 mg/dL High 70-100 [facility] Comment on above: Result Comment: [place] Glucose Reference Range is dependent on time and content of last meal. Glucose of more than 200 mg/dL in a nonstressed, ambulatory subject supports the diagnosis of Diabetes Mellitus. ADA recommended reference range Performed By: #### P T, CMP, CBC, BNP, HS TROP, PTT ####[address] [place] [address] [facility] Potassium [Moles/Vol] 4.9 mmol/L Normal 3.5-5.1 [facility] Comment on above: Performed By: #### P T, CMP, CBC, BNP, HS TROP, PTT ####[address] [place] [address] [facility] Protein [Mass/Vol] 7.2 g/dL Normal 6.4-8.9 [facility] Comment on above: Performed By: #### P T, CMP, CBC, BNP, HS TROP, PTT ####[place] [id number] [place] [id number] [facility] Sodium [Moles/Vol] 136 mmol/L Normal 136-145 [facility] Comment on above: Performed By: #### P T, CMP, CBC, BNP, HS TROP, PTT ####[id number] [place] [id number] [facility] Urea nitrogen [Mass/Vol] 15 mg/dL Normal 7-25 [facility] Comment on above: Performed By: #### P T, CMP, CBC, BNP, HS TROP, PTT ####[id number] [place] [id number] [facility] Creatinine [Mass/volume] in Serum or PlasmaOrdered By: Vinnie Rivas on 04-28-2023 Creatinine [Mass/Vol] 0.71 mg/dL 0.70-1.30 [facility] ECG 12 lead ECGon 04-28-2023 ECG 12 lead ECG [facility] [address] [place] [address] Electrocardiograph Report Signed Patient: Ashwini Vickers MR#: [id number] 353 : 1935 Acct:[id number] Age/Sex: 88 / M ADM Date: 04/28/23 Loc: 4 Room: [address] [place] [address] Type: ADM IN Attending Dr: Sushant Cordon [...] Atrial fibrillation Confirmed by Willi Lawrence DO ([id number]) on 04/28/2023 5:36:13 PM Referred By: Electronically Signed By:Willi Lawrence DO Transcribed By: MUS Signed By Willi Lawrence DO 3 1736 [facility] ECG 12 lead ECG [facility] [place] [address] Electrocardiograph Report Signed Patient: Ashwini Vickers MR#: [id number] 353 : 1935 Acct:[id number] Age/Sex: 88 / M ADM Date: 04/28/23 Loc: Room: [address] [place] [address] Type: ADM IN Attending Dr: Sushant Cordon [...] Sinus rhythm Confirmed by Willi Lawrence DO ([id number]) on 04/28/2023 5:36:13 PM Referred By: Electronically Signed By:Willi Lawrence DO Transcribed By: MUS Signed By Willi Lawrence DO 3 1736 [facility] ECG 12 lead ECG 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 [facility] Erythrocyte distribution wid th Auto (RBC) [Ratio]Ordered By: Vinnie Rivas on 04-28-2023 Erythrocyte distribution width (RBC) [Ratio] 18.0 % 12.0-14.8 [facility] Fructosamineon 04-28-2023 Fructosamine 565 umol/L High 0-285 [facility] Comment on above: Result Comment: Publ ished reference interval for apparently healthy subjects between age 20 and 60 is 205 - 285 umol/L and in a poorly controlled diabetic population is 228 - 563 umol/L with a mean of 396 umol/L. Performed at: - [facility] [id number] Soil Checker: Arturo Boles PhD, Phone: [phone] PERFORMED BY: [facility] [address] [place] [address] PATHOLOGIST [employer] AIRAM MAST M.D. Performed By: #### G LUMARYA #### Point of Care testing , Fructosamine [Moles/volume] in Serum or PlasmaOrdered By: Sushant Cordon on 04-28-2023 Fructosamine [Moles/Vol] 565 umol/L 0-285 [facility] Comment on above: Published reference interval for apparently healthysubjects between age 20 and 60 is 205 - 285 umol/L and in apoorly controlled diabetic population is 228 - 563 umol/Lwith a mean of 396 umol/L.Performed at: - [facility] [id number] Director: Arturo Boles PhD, Phone: [phone] Globulin Calc (S) [Mass/Vol] Ordered By: Vinnie Rivas on 04-28-2023 Globulin (S) [Mass/Vol] 3.2 g/dL [facility] Glucose Glucometer (BldC) [M ass/Vol]Ordered By: Sushant Cordon on 04-28-2023 Glucose [Mass/Vol] 137 mg/dL [facility] Comment on above: Random Glucose Refer ence Range is dependent on time and content of last meal. Glucose of more than 200 mg/dL in a nonstressed, ambulatory subject supports the diagnosis of Diabetes Mellitus. Glucose Poct Glucometerson 1 Glucose [Mass/Vol] 399 mg/dL Normal [facility] Comment on above: Result Comment: [place] Glucose Reference Range is dependent on time and content of last meal. Glucose of more than 200 mg/dL in a nonstressed, ambulatory subject supports the diagnosis of Diabetes Mellitus. PERFORMED BY: [facility] [address] [place] [address] PATHOLOGIST [employer] MAST M.D. Performed By: #### G LULS ####Point of Care testing, Commemt1 Glu2: Cleaned Meter [facility] Comment on above: Result Comment: PERF ORMED BY: [facility] [address] [place] [id number] PATHOLOGIST [employer] AIR[employer] MAST M.D. Performed By: #### G LULS ####Point of Care testing, Glucose [Mass/Vol] 156 mg/dL Normal [facility] Comment on above: Result Comment: [place] Glucose Reference Range is dependent on time and content of last meal. Glucose of more than 200 mg/dL in a nonstressed, ambulatory subject supports the diagnosis of Diabetes Mellitus. Performed By: #### G LULS ####Point of Care testing, Glucose [Mass/Vol] 137 mg/dL [facility] Comment on above: Result Comment: [place] Glucose Reference Range is dependent on time and content of last meal. Glucose of more than 200 mg/dL in a nonstressed, ambulatory subject supports the diagnosis of Diabetes Mellitus. PERFORMED BY: [address] [place] [address] PATHOLOGIST [employer] AIR[employer] MAST M.D. Performed By: #### G LULS ####Point of Care testing, Commemt1 Glu2: Cleaned Meter [facility] Comment on above: Performed By: #### G LULS ####Point of Care testing, Commemt2 WILL NOTIFY DR/RN [facility] Comment on above: Result Comment: PERF ORMED BY: [facility] [address] [place] [address] PATHOLOGIST [employer] MAST M.D. Performed By: #### G LULS ####Point of Care testing, Glucose [Mass/Vol] 171 mg/dL [facility] Comment on above: Result Comment: [place] Glucose Reference Range is dependent on time and content of last meal. Glucose of more than 200 mg/dL in a nonstressed, ambulatory subject supports the diagnosis of Diabetes Mellitus. Performed By: #### G LULS ####Point of Care testing, Glucose [Mass/volume] in Ser um or PlasmaOrdered By: Vinnie Rivas on 04-28-2023 Glucose [Mass/Vol] 124 mg/dL 70-100 [facility] Comment on above: ADA recommended refe rence rangeRandom Glucose Reference Range is dependent on time and content of last meal. Glucose of more than 200 mg/dL in a nonstressed, ambulatory subject supports the diagnosis of Diabetes Mellitus. Glucose mean value [Mass/vol ume] in Blood Estimated from glycated hemoglobinOrdered By: Sushant Cordon on 04-28-2023 Average glucose Estimated from glycated hemoglobin (Bld) [Mass/Vol] 309 mg/dL [facility] Hematocrit Auto (Bld) [Volum e fraction]Ordered By: Vinnie Rivas on 04-28-2023 Hematocrit (Bld) [Volume fraction] 34.8 % 38.8-50.0 [facility] Hemoglobin A1c percentageOrd ered By: Sushant Cordon on 04-28-2023 HbA1c (Bld) [Mass fraction] 12.4 % 4.3-5.6 [facility] Comment on above: Increased risk for d iabetes: 5.7 - 6.4diabetes: >6.4glycemic control for adults with diabetes: <7.0 Hemoglobin [Mass/volume] in BloodOrdered By: Vinnie Rivas on 04-28-2023 Hemoglobin (Bld) [Mass/Vol] 11.5 g/dL 13.0-17.0 [facility] INR in Platelet poor plasma by Coagulation assayOrdered By: Vinnie Rivas on 04-28-2023 INR Coag (PPP) [Relative time] 1.0 {INR} [facility] Comment on above: INR Therapeutic Rang [...] on 04-28-2023 Ketones (U) [Mass/Vol] Negative Negative [facility] Leukocytes [#/volume] correc robert for nucleated erythrocytes in Blood by Automated counOrdered By: Vinnie Rivas on 04-28-2023 WBC corrected for nucl RBC Auto (Bld) [#/Vol] 9.7 10*3/uL 4.1-10.5 [facility] Lymphocytes Auto (Bld) [#/Vo l]Ordered By: Vinnie Rivas on 04-28-2023 Lymphocytes (Bld) [#/Vol] 1.4 10*3/uL 1.00-4.8 [facility] Lymphocytes/100 WBC Auto (Bl d)Ordered By: Vinnie Rivas on 04-28-2023 Lymphocytes/100 WBC (Bld) 14.8 % . [facility] MCH Auto (RBC) [Entitic mass ]Ordered By: Vinnie Rivas on 04-28-2023 MCH (RBC) [Entitic mass] 28.0 pg 27.5-35.2 [facility] MCHC Auto (RBC) [Mass/Vol]Or dered By: Vinnie Rivas on 04-28-2023 MCHC (RBC) [Mass/Vol] 33.2 g/dL 32.5-35.6 [facility] MCV Auto (RBC) [Entitic vol] Ordered By: Vinnie Rivas on 04-28-2023 MCV (RBC) [Entitic vol] 84.3 fL 83.5-101 [facility] Monocyte distribution width [Entitic volume] in Blood by AutomatedOrdered By: Vinnie Rivas on 04-28-2023 Monocyte distribution width Auto (Bld) [Entitic vol] 18.61 % 0.00-20.00 [facility] Monocytes Auto (Bld) [#/Vol] Ordered By: Vinnie Rivas on 04-28-2023 Monocytes (Bld) [#/Vol] 0.9 10*3/uL 0.0-0.8 [facility] Monocytes/100 WBC Auto (Bld) Ordered By: Vinnie Rivas on 04-28-2023 Monocytes/100 WBC (Bld) 9.3 % . [facility] Natriuretic peptide B [Mass/ Vol]Ordered By: Vinnie Rivas on 04-28-2023 Natriuretic peptide B (Bld) [Mass/Vol] 665.0 pg/mL 5-100 [facility] Neutrophils Auto (Bld) [#/Vo l]Ordered By: Vinnie Rivas on 04-28-2023 Neutrophils (Bld) [#/Vol] 7.3 10*3/uL 1.8-7.7 [facility] Neutrophils/100 WBC Auto (Bl d)Ordered By: Vinnie Rivas on 04-28-2023 Neutrophils/100 WBC (Bld) 75.0 % . [facility] Nitrite Test strip Ql (U)Ord ered By: Vinnie Rivas on 04-28-2023 Nitrite Ql (U) Negative Negative [facility] No Panel InformationOrdered By: Vinnie Rivas on 04-28-2023 Estimated GFR (CKD-EPI) > 60.0 mL/Min [facility] Creatinine Clearance (Chem 60.38 [facility] Nucleated erythrocytes [Pres ence] in Blood by Automated countOrdered By: Vinnie Rivas on 04-28-2023 Nucleated RBC Auto Ql (Bld) 0.1 /100{WBC} 0-0.5 [facility] Partial Thromboplastin Timeo n 04-28-2023 aPTT Coag (Bld) [Time] 27.8 s Normal 25.1-36.5 [facility] Comment on above: Result Comment: A he matocrit value greater than 55% may lead to inaccurate results in coagulation testing. Patients having hematocrit values >55% require a special collection tube for coagulation studies. Please contact the laboratory at [phone] for redraw instructions. PERFORMED BY: [facility] [address] [place] [address] PATHOLOGIST [employer] AIR[employer] MAST M.D. Performed By: #### P T, CMP, CBC, BNP, HS TROP, PTT ####[facility] [id number] [place] [address] [facility] Platelet mean volume Auto (B ld) [Entitic vol]Ordered By: Vinnie Rivas on 04-28-2023 Platelet mean volume (Bld) [Entitic vol] 9.3 fL 6.6-10.1 [facility] Platelets Auto (Bld) [#/Vol] Ordered By: Vinnie Rivas on 04-28-2023 Platelets (Bld) [#/Vol] 206 10*3/uL 150-450 [facility] Potassium [Moles/volume] in Serum or PlasmaOrdered By: Vinnie Rivas on 04-28-2023 Potassium [Moles/Vol] 4.9 mmol/L 3.5-5.1 [facility] Protein Auto test strip (U) [Mass/Vol]Ordered By: Vinnie Rivas on 04-28-2023 Protein (U) [Mass/Vol] Negative Negative [facility] Protein [Mass/volume] in Ser um or PlasmaOrdered By: Vinnie Rivas on 04-28-2023 Protein [Mass/Vol] 7.2 g/dL 6.4-8.9 [facility] Prothrombin Time INRon 04-28 INR Coag (PPP) [Relative time] 1.0 {INR} Normal [facility] Comment on above: Result Comment: INR [...] T, CMP, CBC, BNP, HS TROP, PTT ####[facility] [id number] [place] [id number] [facility] PT Coag (PPP) [Time] 11.8 s Normal 9.0-12.9 [facility] Comment on above: Result Comment: A he matocrit value greater than 55% may lead to inaccurate results in coagulation testing. Patients having hematocrit values >55% require a special collection tube for coagulation studies. Please contact the laboratory at [phone] for redraw instructions. Performed By: #### P T, CMP, CBC, BNP, HS TROP, PTT ####[facility] [id number] [place] [id number] [facility] Prothrombin time (PT)Ordered By: Vinnie Rivas on 04-28-2023 PT Coag (PPP) [Time] 11.8 s 9.0-12.9 [facility] Comment on above: A hematocrit value g reater than 55% may lead to inaccurate results in coagulation testing. Patients having hematocrit values >55% require a special collection tube for coagulation studies. Please contact the laboratory at [phone] for redraw instructions. RBC Auto (Bld) [#/Vol]Ordere d By: Vinnie Rivas on 04-28-2023 RBC (Bld) [#/Vol] 4.12 10*6/uL 3.90-5.60 [facility] Serum or plasma albumin/glob ulin mass ratioOrdered By: Vinnie Rivas on 04-28-2023 Albumin/Globulin [Mass ratio] 1.3 {ratio} [facility] Serum or plasma anion gap de terminationOrdered By: Vinnie Rivas on 04-28-2023 Anion gap [Moles/Vol] 9.5 mmol/L 6.0-15.0 [facility] Sodium [Moles/volume] in Ser um or PlasmaOrdered By: Vinnie Rivas on 04-28-2023 Sodium [Moles/Vol] 136 mmol/L 136-145 [facility] Specific gravity Auto test s trip (U) [Rel density]Ordered By: Vinnie Rivas on 04-28-2023 Specific gravity (U) [Rel density] 1.009 1.001-1.03 0 [facility] Troponin I High Sensitivityo n 04-28-2023 Troponin I High Sensitivity 38.9 pg/mL High 0.0-20.0 [facility] Comment on above: Result Comment: PERF ORMED BY: [facility] [address] [facility] [place] [address] PATHOLOGIST [employer] AIR[employer] MAST M.D. Performed By: #### H S TROP ####[facility] [place] [address] [facility] Troponin I High Sensitivity 38.6 pg/mL High 0.0-20.0 [facility] Comment on above: Result Comment: PERF ORMED BY: [facility] [address] [place] [address] PATHOLOGIST [employer] AIR[employer] MAST M.D. Performed By: #### H S TROP ####[address] [address] [facility] Troponin I High Sensitivity 38.3 pg/mL High 0.0-20.0 [facility] Comment on above: Result Comment: PERF ORMED BY: [facility] [address] [place] [address] PATHOLOGIST [employer] MAST M.D. Performed By: #### H S TROP ####[place] [id number] [facility] Troponin I High Sensitivity 35.5 pg/mL High 0.0-20.0 [facility] Comment on above: Result Comment: PERF ORMED BY: [facility] [address] [place] [address] PATHOLOGIST [employer] MAST M.D. Performed By: #### P T, CMP, CBC, BNP, HS TROP, PTT ####[address] [address] [facility] Troponin I.cardiac [Mass/vol ume] in Serum or Plasma by Detection limit <= 0.01 ng/Ordered By: Vinnie Rivas on 04-28-2023 Troponin I.cardiac DL <= 0.01 ng/mL [Mass/Vol] 38.3 pg/mL 0.0-20.0 [facility] Urea nitrogen [Mass/volume] in Serum or PlasmaOrdered By: Vinnie Rivas on 04-28-2023 Urea nitrogen [Mass/Vol] 15 mg/dL 725 [facility] Urinalysison 04-28-2023 Appearance (U) Clear Normal Clear [facility] Comment on above: Order Comment: Name Collection Type:: Kimble Catheter Performed By: #### U A ####[place] [id number] [facility] Bilirubin,Urine Negative Normal Negative [facility] Comment on above: Order Comment: Name Collection Type:: Kimble Catheter Performed By: #### U A ####[address] [address] [facility] Glucose Ql (U) Normal Normal Normal [facility] Comment on above: Order Comment: Name Collection Type:: Kimble Catheter Performed By: #### U A ####[address] [address] [facility] Ketones Ql (U) Negative Normal Negative [facility] Comment on above: Order Comment: Name Collection Type:: Kimble Catheter Performed By: #### U A ####[address] [address] [facility] Leukocyte esterase Test strip Ql (U) Negative Normal Negative [facility] Comment on above: Order Comment: Name Collection Type:: Kimble Catheter Performed By: #### U A ####[address] [address] [facility] Nitrite,Urine Negative Normal Negative [facility] Comment on above: Order Comment: Name Collection Type:: Kimble Catheter Performed By: #### U A ####[address] [address] [facility] Occult Blood,Urine Negative Normal Negative [facility] Comment on above: Order Comment: Name Collection Type:: Kimble Catheter Result Comment: PERF ORMED BY: [facility] [address] [place] [id number] PATHOLOGIST [employer] MAST M.D. Performed By: #### U A ####[address] [address] [facility] Protein,Urine Negative Normal Negative [facility] Comment on above: Order Comment: Name Collection Type:: Kimble Catheter Performed By: #### U A ####[address] [address] [facility] Specificy [place],Urine 1.009 Normal 1.001-1.03 0 [facility] Comment on above: Order Comment: Name Collection Type:: Kimble Catheter Performed By: #### U A ####[address] [address] [facility] Urobilinogen,Urine Normal Normal Normal [facility] Comment on above: Order Comment: Name Collection Type:: Kimble Catheter Performed By: #### U A ####[place] [id number] [address] Urine clarity by refractomet ry automatedOrdered By: Vinnie Rivas on 04-28-2023 Clarity Refractometry automated (U) Clear Clear [facility] Urine glucose measurement by automated test strip (mass/volume)Ordered By: Vinnie Rivas on 04-28-2023 Glucose Auto test strip (U) [Mass/Vol] Normal mg/dL Normal [facility] Urine hemoglobin detection b y automated test stripOrdered By: Vinnie Rivas on 04-28-2023 Hemoglobin Auto test strip Ql (U) Negative Negative [facility] Urine leukocyte esterase det ection by automated test stripOrdered By: Vinnie Rivas on 04-28-2023 Leukocyte esterase Auto test strip Ql (U) Negative Negative [facility] Urine pH measurement by auto mated test stripOrdered By: Vinnie Rivas on 04-28-2023 pH (U) 6.5 [pH] Normal 5.0-9.0 [facility] Comment on above: Order Comment: Name Collection Type:: Kimble Catheter Performed By: #### U A ####[place] [address] [address] Urobilinogen Auto test strip (U) [Mass/Vol]Ordered By: Vinnie Rivas on 04-28-2023 Urobilinogen (U) [Mass/Vol] Normal mg/dL Normal [facility] WBC Auto (Bld) [#/Vol]Ordere d By: Vinnie Rivas on 04-28-2023 WBC (Bld) [#/Vol] 9.7 10*3/uL 4.1-10.5 [facility] XR femur RT 2V*on 04-28-2023 XR femur RT 2V* [facility] [address] [place] [address] [place] [id number] XRay Report Signed Patient: Ashwini Vickers MR#: [id number] : 1935 Acct:[id number] Age/Sex: 88 / M ADM Date: 04/28/23 Loc: ER Room: Type: [facility] ER Attending Dr: Copies to: Vinnie Rivas PA-C Ordering Provider: Vinnie Rivas PA-C Date of Service: 04/28/23 XR/XR chest 1V portable: Fall ([id number]) XR/XR femur RT 2V*: Fall ([id number]) XR/XR hip RT min 2V(w/wo pelvis)*: Fall [...] Sheldon Johnson M.D.04/28/2023 2:48 PM Dictation Location: [place] [address] Transcribed By: [facility] 04/28/23 1448 Dictated By: Sheldon Johnson DO 04/28/23 1437 Signed By: 04/28/23 1448 [facility] Coding Summaryon 04-26-2023 Coding Summary HTMLBase 64 CioxlfhqQCr2pQw+PGhlYWQ+PE 3DOZEtW72ukBDoxQ6rI6NYUNjM BsviKPGYINdOKjBxrhYrFB7dbU NjZXJu IC8+WV9eNNYmArdjmILit8S8lU O2S31zxe6eIVcsaRS9YZAaFeWs cgqeo1wxdWr5VKkoKeazHhYw GYFwwN51OGU7kN55St42dVOroG Czv6mlpNx9IyFxMGFoYML6iRyq RPqvb6FjKMUoH19enFZrm5T4 LRGxlEbbsZLpLjBchYC5eG0wWP qpklrbd0yqawulIht2yi93tSCc l7W0sUX2J6OkmdV9DRKyiQNp ZktwsJLOzD9byaqci6xeftbkVv AtZLYuKSs5NNw4CKWgsEcnKhZx MK60HPB9LAGmsaUpI9HzHRXl eFzsRfC4y9B8Vh9PF0VLTrssA4 VNTUFSWTwvdGQ+ES29xf58C6Mh TfrqHui4BPGpBKU9pWB0oA8c XDZqQLese4D8jUB1S7JhsfAvvl 4lc9qxUVKbEChiN69xwHLzf3N2 LSLutKL6QFIxrTrcPkZnsK84 Oyc+QINuvSphh2DcTdbck9bjx3 fixSe3BdisSLHszxHqgLtlMPW1 d5FjDc4tQAKmrGO4nDK0hX0z QqQhOiA4FTidJ723NuDvbRCbXp alJ93aI3YxhVS+DUCjMru0CUFb cIyaFA1uS5LcXWZiuakruISr pNohIA5eBNQpuojgZGTrkN0ySG NbK6c4RdYkAqE6KYleR2DsJQNq ewhoFn10zT9rJvQeFiY8CYkv J6MruvU3UUJyeLYqFKleLHY8E5 4ml3L8PGZmVUPfDZS0aHE2aN8c bGlnbjogbGVmdDsgdmVydGlj RTztQKsgM952XBFlfGqbUpJoFA luZyBEYXRlOiAgMTAvMTYvMjAy MzwvdGQ+VUCnQFR2rLvnMXQl gPWoNYkoLs9zjDrhhOrhMF4bXM QldlsrFHFszC9sLOFzlTCyiEzz TL8nKRHatkwrp546NxPkLLN4 UNGgrFMkC0ScaK9lYtEbRBPhJJ JxE4DgfHIzVWvnT135ZGpuQlX6 LUMujlNuL2DmZDExsOpoKvG4 b2N8Ge8Rv1JrbyegR9NvdSErNz VcTmieIJr3J7FpQimrdSU+PC90 NTDpTN60RGv1SSJ8iGowKReu QPTfW0WzqL8aFmDcXLHgNYCcKn c+PHRhYmxlIHdpZHRoPScxMDAl UeNteNwlFB6xXs9oZXSiKKIc eLsqyXFrTrWqw6tlKDJnIGbzHP 2kcEgrY6LwwKO6EEJaw7z3Yt70 Q54cR7NztIX+NEBdiAY3cPS0 iL7lAgLzYqN5CZzuN842DvNngJ KqHftlh7hdx3arcXt9AwS5JAYh ptObbMdhKSE8m5IvHg47Q42s IHdpZHRoPSIxNSUiIHZhbGlnbj 1fkL2aNe7+CPPltFM8gKM6eY8m JoCsOxI1ZUxiH372ImCugPHk Ihurp4fdy5nkrBt5IfIvUHWtij RukLzlJCB3i4HsZn49B6PesSfv v4WfVfc4ft78rVGwe8V3dEX7 H4EvKGRprbaueZXfiFhhCY0dRJ WpyrwyCHPrlE8uKRAuS7r0KzNu UcF1UMrsM9EsnrI1EFRuxNOn ZBZcfULBgO4cwktlb5wyzzasRx OzUFNeCEg6ENe9GTZjrPoiQpCi ITT6YgF8FHI2dXLnwC3qvPxu legmuE2jJsu+LCB9jAPtnQSEXZ 1lOjwvdGQ+HHJyKWL4bIqbLUbt AXSsfF1eLWXdU2f1GyJtEhV4 TFnlC7GqgkM8BQRtnLQlUYHoiL TTnF3rgovqy8tgvcpuMbSrGMCk AQw4OEg6WNKqmPhrUuIkFVD4 SyX0FLB1iWKnaS7zeFysifgikH 9wOyc+VuvrhMiwMMP0CFq4M2Le Ffo9DEMbgSspRJ2dgMRpUIkq Gs0epSelzOouOV8nZLPtaepjf7 70MbEay4ehQPEdbEIdHDrlDOF6 M20xx9N0ZXQeGPKdPAE8xIU4 fJ8gaSelgavxwPBkjUioveJhbL aeAKbbLEweJ981EYCdhFisUoGj VLk1G4OhDxr1RFLxhUrjGR6p vAQkREvoHg8vkJngeRhhFS0iAT Zmggkka098DpHrq4tsBWRaxMUp AAnaTYW9T69pa2V4YPSbXZFe RTR9hPY0mA0rnCytnadraWGrtQ gmbaOfeDqaZUugKCjbZ145CJNh sAwqKmLakVz7R4DcSyb2UPAb uBbmKM2qrKGdAGkcHj2rbGjkpK weVV0gJQJbksmbj069DpSsh0zc IZHhwXHjXGupGPV9S72vs8J3 LXCrAEZyFGY4zPK8vA6wjVpfuw ogbGVmdDsgdmVydGljYWwtYWxp S408AFLtdTplKjUxjHrzskNi RHwkQRg6O6PqFoksjZB+PC90YW UqAG48kZDvgBJom7dxwJm0OuWe PIXxGKG7tFlsDLypw3SfVEVs E36xqHXac0V2FGFnqKntuEQwFi YcrKV7zV8gFYoraehap7ghjeke Qcpgy8dqkj77lS00F78yZZuu YDNhXDWxGLUiUCAlfQswxu1idD 9wIi8+OSDwhPK7cWF1vN1cWOAf DnT6AXgwN367KaNxkLGoXhik z9dpw9dacGn1KrT9DPGnqzOljP osCUU6o5BfTd93O60iPTvuFGMf LAYiHHYgCYJkvRwwez6zmO7a Ii8+CEOcoXP8eET3xW0aSkFiRl P5BVqpI830WeNfiERiFslbG23h I9OawAQ+JQSaCkk2UXAhwRqq ZA5dwCSsCUbnGu7cGIN5BxOoGs MtHUrrW5UyGFLzgmjifptzbJQ9 WXLnMHHtyK90Cf4drNdqXCTh jALKdD1vbsdqw7mcbymgNjGlAI NcMEq4PXh8DDTbpZsdUjBxTMC6 XkN9MWR5cFJkcR0aaSgqyqeu bW2gM6ZeEZJdrrxkTz17oT7bGs TeCnH0ZMvnWgp+K4VRNj0VLJSC PC9TWIlcWnozzJO+PHRkIHN0 uWyiLHdcQFMcbJ7rKATiL1o2Ne CrJuS9ENvlE7GiMHErbzfkSk93 mS3jAyNuVfD7DQjsF2VqxjY7 SRHbwMPdVIsrKUH9D69nc2C1PP IrMWHvZHW9hYI8pU0ddOljkwpr bGVmdDsgdmVydGljYWwtYWxp W301HYThaVsdVnU9EsIzZeW8St k6O0MpEtv6FBDnnNviSU2eaQFb CCyoAb8txWicaFbzAO6qQBJc faufVMNcwW2mJOYdmDKbsRszVU 9tFVWfonmqy027PgPeHAH9TFGv kQZjJ2QsiP2kCwXiBHKgNMHy Z0AbhRVmILrzW485HDfyYkE9JS ImbtUqE6UtXXHtwDyuGvK6j4T5 Ff65KbAYHCRbfgpoiEG+PHRk CBH6fCtdYXvnPMKumK9aIHWdZ1 h8XmRkYgV1TTmoJ3BkPLPhiapj Ae31kF8cOkDeRmL7NGzfK0Jm ihM6TXXqbLAiQSirIPE1D81dc1 N0QSPjFTTbGWQ6qQT9cL2rlQqm bjogbGVmdDsgdmVydGljYWwt TJryJ798OYAeeInjCh1AUYA7K1 CfPqu1VPRigCdzRL1qxDYxFEtp Hr9rsMafhPqgCD7oYKFtwtgw LRIgnP6bICGxgZWtkMxbMF0iAW Bbgxvah098KoBnPQK7MVYnnFEb A9MihL3uEmPmGYAiOFFxU6Lx tRUpABkaR274JHonVwW2PSDdtf WjI9SjOOIypDnbTzA1e3X3Jw2Q UDwvdGQ+WX44ef52E3NyGguf Fcr3NLPoYPA0oYW3zS6gTIBoTQ bwi5C4aRI3R0HaybSdgp2ax8zv TSKgSFceJ97wqWWqd6E6IWLf rBC1HRTzaHonPsXrgA53Nbc+PG OpiJrmu7KxCvtam8bfm2kqyHp0 SdCjNSRpjuQddOibLJP8v8Mg Pk52A50eJDzvPYMlSJCjCCCiSR QfcBlmdi8vfV4mUl2+PGNvbCB3 mEC0rC0uVxMlHzL0KSceF120 XvRujUOsXwsft1zry9lplWc8Ny UbGDGnuaMwtKciVBP9l8ReQs50 H7AgjPxwq0PzKmo9ed48nRRa y1D7sFW6A6KuWERnpyphhUHasV ixXL3kQRLnlbafKJJseM8gZOMh H1y5SsQbKlF3ARmmH1YwawN7 YQHbgWJdCZDhvYGOlR1lndxnn0 xrrpkuHaAfPODeLAn9BZt1MMIx pUquOeUjXUH7FyB8JCJ8dKJo iA2gxCpmzftzkN2gAeh+UGh5c2 bfiILyQV2wnAT5EC33EY44gPRv n6K7rYZ3Y7MqOFQeaawhhahv lFA6VYAkUOVlxB01Cm6eiIzaYf 5eLPHiQDA0ZPDzrBPrB3UpqU7r SpWoFHIkFJEsJ7FxiRPfQLbi Y114EWtzBlZ1XABuseRhH3VsGG UruJefBrR8n4N4Yk7ELY68VW30 RT91lSCfz8R9qGO3Y5AtIQDf bppeilhhyJH2ZKJcJSTxfW52Pr 1pqXhxRh8aOATgVAH8OWUebMXt G8FxxM4mHpHpBSSrGKAuI2Bk cTHxSKjnA767JLgbJrV0SFEixi KlS3FwUSCfxSdiTlA6l3S7Yz9R Rm91OM22SB95mNRop2Q7hTP6 A4LgFJAhwnmjtydftCV1BHBdLI IodD98Cf6zyPcbTl4wRYZqJVK1 DBQxoNVwH3OapS7dZvElXYNe YFKrD1EjgHDwOYvlS579ALauQh U6QJUhpgErC3BfOVLmaJsbQfY6 j1Z4Gp5DCQzlgyw9Q2CoJsky dHI+VS31AGUcCV52pDAiaNUgb9 srvXm2RyEsZMDjRPB6lLmfYLtw h8AiDHXuS62lsRGik6V6ISTs bGx (more content not included)... [facility] Consent Formson 04-26-2023 Consent Forms [id number] [facility] BUN/Creat Ratioon 04-23-2023 eGFR Non AA >60 Invalid Interpretation Code [facility] Comment on above: Performed By: #### 1 [id number] #### [facility] (DEFAULT) [address] [place] [id number] eGFR AA >60 Invalid Interpretation Code [facility] Comment on above: Performed By: #### 1 [id number] #### [facility] (DEFAULT) [address] [place] [id number] Creatinine [Mass/Vol] 0.69 mg/dL Low 0.90-1.30 [facility] Comment on above: Performed By: #### 1 [id number] #### [facility] (DEFAULT) [address] [place] [id number] Urea nitrogen [Mass/Vol] 14 mg/dL Normal 8-26 [facility] Comment on above: Performed By: #### 1 [id number] #### [facility] (DEFAULT) [address] [place] [id number] Urea nitrogen/Creatinine [Mass ratio] 20.2 mg/mg High 4.6-16.2 [facility] Comment on above: Performed By: #### 1 [id number] #### [facility] (DEFAULT) [address] [place] [id number] Urogramon 04-23-2023 CT Urogram CLINICAL HISTORY: [...] MD 04/23/23 3:17 pm Technologist: DARYA MANN [facility] Provider [place] 04-21-2023 Provider Orders [id number] F [facility] Provider [place] 03-16-2023 Provider Orders [id number]#[id number] [facility] UA RANDOMon 06-05-2022 Bilirubin Ql (U) Negative Normal NEGATIVE [facility] Comment on above: Performed By: #### C MP, LIPID #### [facility] [address] [address] [address] Kylee Bunch Clarity (U) CLEAR Normal CLEAR [facility] Comment on above: Performed By: #### C MP, LIPID #### [facility] [address] [place], [place] [address] Dr. Kylee Bunch Color (U) YELLOW Normal YELLOW [facility] Comment on above: Performed By: #### C MP, LIPID #### [facility] [address] [address] [address] Kylee Bunch Glucose Ql (U) Negative Normal NEGATIVE [facility] Comment on above: Performed By: #### C MP, LIPID #### [facility] [address] [address] [address] Kylee Bunch Hemoglobin Ql (U) TRACE-INTACT Abnormal NEGATIVE [facility] Comment on above: Performed By: #### C MP, LIPID #### [facility] [address] [address] [address] Kylee Bunch Ketones Ql (U) TRACE Abnormal NEGATIVE [facility] Comment on above: Performed By: #### C MP, LIPID #### [facility] [address] [place] [address] Dr. Kylee Bunch LEUKOCYTES Negative Normal NEGATIVE [facility] Comment on above: Performed By: #### C MP, LIPID #### [facility] [address] [address] [address] Kylee Bunch Nitrite Ql (U) Negative Normal NEGATIVE [facility] Comment on above: Performed By: #### C MP, LIPID #### [facility] [address] [place] [address] Dr. Kylee Bunch pH (U) 5.5 [pH] Normal 5-9 [facility] Comment on above: Performed By: #### C MP, LIPID #### [facility] [address] [place] [address] Dr. Kylee Bunch SPEC GRAVITY >=1.030 Abnormal 1.005-<=1. 025 [facility] Comment on above: Performed By: #### C MP, LIPID #### [facility] [address] [place] [address] Dr. Kylee Bunch UA PROTEIN Negative Normal NEGATIVE/ TRACE [facility] Comment on above: Performed By: #### C MP, LIPID #### [facility] [address] [place] [address] Dr. Kylee Bunch Urobilinogen Qn (U) 0.2 {Gemini'U}/dL Normal 0.2 - 1. 0 [facility] Comment on above: Performed By: #### C MP, LIPID #### [facility] [address] [place] [address] Dr. Kylee Bunch CBC AUTO DIFFon 05-14-2022 BASO # 0.0 103/ul Normal 0.0-0.1 [facility] Comment on above: Performed By: #### C MP, LIPID #### [facility] [address] [place] [address] Dr. Kylee Bunch Basophils/100 WBC (Bld) 0.7 % Normal 0.2-2.0 [facility] Comment on above: Performed By: #### C MP, LIPID #### [facility] [address] [place] [address] Dr. Kylee Bunch EO # 0.1 103/ul Normal 0.0-0.7 [facility] Comment on above: Performed By: #### C MP, LIPID #### [facility] [address] [place] [address] Dr. Kylee Bunch Eosinophils/100 WBC (Bld) 2.6 % Normal 0.9-7.0 [facility] Comment on above: Performed By: #### C MP, LIPID #### [facility] [address] [place] [address] Dr. Kylee Bunch Erythrocyte distribution width (RBC) [Ratio] 17.2 % Critically high 11.0-15.0 [facility] Comment on above: Performed By: #### C MP, LIPID #### [facility] [address] [place] [address] Dr. Kylee Bunch Hematocrit (Bld) [Volume fraction] 36.1 % Critically low 42.0-54.0 [facility] Comment on above: Performed By: #### C MP, LIPID #### [facility] [address] [place] [address] Dr. Kylee Bunch Hemoglobin (Bld) [Mass/Vol] 12.1 g/dL Critically low 14.0-18.0 [facility] Comment on above: Performed By: #### C MP, LIPID #### [facility] [address] [address] [address] Kylee Bunch IG # 0.01 10e3/ul Normal 0.00-0.03 [facility] Comment on above: Performed By: #### C MP, LIPID #### [facility] [address] [address] [address] Kylee Bunch IG % 0.2 % Normal 0.0-0.5 [facility] Comment on above: Performed By: #### C MP, LIPID #### [facility] [address] [place] [address] Dr. Kylee Bunch LYMPH # 1.7 103/ul Normal 1.2-3.8 [facility] Comment on above: Performed By: #### C MP, LIPID #### [facility] [address] [place] [address] Dr. Kylee Bunch Lymphocytes/100 WBC (Bld) 30.9 % Normal 20.5-60.0 [facility] Comment on above: Performed By: #### C MP, LIPID #### [facility] [address] [place] [address] Dr. Kylee Bunch MANUAL DIFF REQ NO Normal [facility] Comment on above: Performed By: #### C MP, LIPID #### [facility] [address] [place] [address] Dr. Kylee Bunch MCH (RBC) [Entitic mass] 27.4 pg Normal 25.9-34.0 [facility] Comment on above: Performed By: #### C MP, LIPID #### [facility] [address] [place] [address] Dr. Kylee Bunch MCHC (RBC) [Mass/Vol] 33.5 g/dL Normal 29.9-35.2 [facility] Comment on above: Performed By: #### C MP, LIPID #### [facility] [address] [place] [address] Dr. Kylee Bunch MCV (RBC) [Entitic vol] 81.9 fL Normal 80.0-94.0 [facility] Comment on above: Performed By: #### C MP, LIPID #### [facility] [address] [address] [address] Kylee Bunch MONO # 0.7 103/ul Normal 0.3-0.8 [facility] Comment on above: Performed By: #### C MP, LIPID #### [facility] [address] [address] [address] Kylee Bunch Monocytes/100 WBC (Bld) 12.9 % Critically high 1.7-12.0 [facility] Comment on above: Performed By: #### C MP, LIPID #### [facility] [address] [address] [address] Kylee Bunch NEUT # 2.9 103/ul Normal 1.4-6.5 [facility] Comment on above: Performed By: #### C MP, LIPID #### [facility] [address] [address] [address] Kylee Bunch Neutrophils/100 WBC (Bld) 52.7 % Normal 43.0-75.0 [facility] Comment on above: Performed By: #### C MP, LIPID #### [facility] [address] [address] [address] Kylee Bunch PLT 213 103/ul Normal 150-450 [facility] Comment on above: Performed By: #### C MP, LIPID #### [facility] [address] [address] [address] Kylee Bunch RBC 4.41 106/ul Critically low 4.70-6.10 [facility] Comment on above: Performed By: #### C MP, LIPID #### [facility] [address] [address] [address] Kylee Bunch WBC 5.4 103/ul Normal 4.0-11.0 [facility] Comment on above: Performed By: #### C MP, LIPID #### [facility] [address] [address] [address] Kylee Bunch LIPID PROFILEon 05-14-2022 CHOL-HDL RATIO NORM SEE BELOW Normal [facility] Comment on above: Result Comment: 3.3 - 4.4 LOW RISK 4.4 - 7.1 AVERAGE RISK 7.1 - 11.0 MODERATE RISK >11.0 HIGH RISK Performed By: #### C MP, LIPID #### [facility] [address] [address] [address] Kylee Bunch Cholesterol [Mass/Vol] 166 mg/dL Normal <=200 [facility] Comment on above: Performed By: #### C MP, LIPID #### [facility] [address] [address] [address] Kylee Bunch Cholesterol in HDL [Mass/Vol] 71 mg/dL Critically high 40-60 [facility] Comment on above: Performed By: #### C MP, LIPID #### [facility] [address] [address] [address] Kylee Bunch Cholesterol in LDL [Mass/Vol] 84.8 mg/dL Normal [facility] Comment on above: Performed By: #### C MP, LIPID #### [facility] [address] [place] [address] Dr. Kylee Bunch Cholesterol.total/Cho lesterol in HDL [Mass ratio] 2.3 {ratio} Normal [facility] Comment on above: Performed By: #### C MP, LIPID #### [facility] [address] [place] [address] Dr. Kylee Bunch HDL NORMAL > or = 60 mg/dl - LO W CARDIOVASCULAR RISK <40 mg/dl - HIGH CARDIOVASCULAR RISK Normal [facility] Comment on above: Performed By: #### C MP, LIPID #### [facility] [address] [place] [address] Dr. Kylee Bunch LDL CALC NORMAL SEE BELOW Normal [facility] Comment on above: Result Comment: <100 mg/dl OPTIMAL 100 - 129 mg/dl NEAR OR ABOVE OPTIMAL 130 - 159 mg/dl BORDERLINE HIGH 160 - 189 mg/dl HIGH >190 mg/dl VERY HIGH Performed By: #### C MP, LIPID #### [facility] [address] [place] [address] Dr. Kylee Bunch Triglyceride [Mass/Vol] 51 mg/dL Normal <=150 [facility] Comment on above: Performed By: #### C MP, LIPID #### [facility] [address] [place] [address] Dr. Kylee Bunch VLDL CALC 10.2 mg/dL Normal [facility] Comment on above: Performed By: #### C MP, LIPID #### [facility] [address] [address] [address] Kylee Bunch MICROALBUMIN, RAND URon 11-0 mALB 3.0 mg/L Normal <=30.0 [facility] Comment on above: Performed By: #### M ALBR #### [facility] [address] [place] [address] Dr. Kylee Bunch PROF 14(COMP METB)on 022 Albumin [Mass/Vol] 3.5 g/dL Normal 3.4-5.0 [facility] Comment on above: Performed By: #### C MP, LIPID #### [facility] [address] [place] [address] Dr. Kylee Bunch Albumin/Globulin [Mass ratio] 1.0 {ratio} Normal [facility] Comment on above: Performed By: #### C MP, LIPID #### [facility] [address] [place] [address] Dr. Kylee Bunch ALP [Catalytic activity/Vol] 97 U/L Normal 46-116 [facility] Comment on above: Performed By: #### C MP, LIPID #### [facility] [address] [place] [address] Dr. Kylee Bunch ALT [Catalytic activity/Vol] 29 U/L Normal 16-63 [facility] Comment on above: Performed By: #### C MP, LIPID #### [facility] [address] [place] [address] Dr. Kylee Bunch Anion gap [Moles/Vol] 6.7 mmol/L Normal [facility] Comment on above: Performed By: #### C MP, LIPID #### [facility] [address] [place] [address] Dr. Kylee Bunch AST [Catalytic activity/Vol] 28 U/L Normal 15-37 [facility] Comment on above: Performed By: #### C MP, LIPID #### [facility] [address] [address] [address] Kylee Bunch Bilirubin [Mass/Vol] 0.4 mg/dL Normal 0.2-1.0 [facility] Comment on above: Performed By: #### C MP, LIPID #### [facility] [address] [address] [address] Kylee Bunch Calcium [Mass/Vol] 8.9 mg/dL Normal 8.5-10.1 [facility] Comment on above: Performed By: #### C MP, LIPID #### [facility] [address] [place] [address] Dr. Kylee Bunch Chloride [Moles/Vol] 99 mmol/L Normal 98-107 [facility] Comment on above: Performed By: #### C MP, LIPID #### [facility] [address] [place] [address] Dr. Kylee Bunch CO2 [Moles/Vol] 33.4 mmol/L Critically high 21.0-32.0 [facility] Comment on above: Performed By: #### C MP, LIPID #### [facility] [address] [place] [address] Dr. Kylee Bunch Creatinine [Mass/Vol] 0.80 mg/dL Normal 0.70-1.30 [facility] Comment on above: Performed By: #### C MP, LIPID #### [facility] [address] [place] [address] Dr. Kylee Bunch EGFR-AF MALAGASY >60 Normal >=60 [facility] Comment on above: Performed By: #### C MP, LIPID #### [facility] [address] [place] [address] Dr. Kylee Bunch EGFR-NON AF MALAGASY >60 Normal >=60 [facility] Comment on above: Performed By: #### C MP, LIPID #### [facility] [address] [place] [address] Dr. Kylee Bunch Globulin (S) [Mass/Vol] 3.4 g/dL Normal [facility] Comment on above: Performed By: #### C MP, LIPID #### [facility] [address] [place] [address] Dr. Kylee Bunch Glucose [Mass/Vol] 188 mg/dL Critically high 74-106 [facility] Comment on above: Performed By: #### C MP, LIPID #### [facility] [address] [place] [address] Dr. Kylee Bunch Potassium [Moles/Vol] 4.1 mmol/L Normal 3.5-5.1 [facility] Comment on above: Performed By: #### C MP, LIPID #### [facility] [address] [place] [address] Dr. Kylee Bunch Protein [Mass/Vol] 6.9 g/dL Normal 6.4-8.2 [facility] Comment on above: Performed By: #### C MP, LIPID #### [facility] [address] [place] [address] Dr. Kylee Bunch Sodium [Moles/Vol] 135 mmol/L Critically low 136-145 [facility] Comment on above: Performed By: #### C MP, LIPID #### [facility] [address] [place] [address] Dr. Kylee Bunch Urea nitrogen [Mass/Vol] 15.0 mg/dL Normal 7.0-18.0 [facility] Comment on above: Performed By: #### C MP, LIPID #### [facility] [address] [place] [address] Dr. Kylee Bunch Urea nitrogen/Creatinine [Mass ratio] 18.8 mg/mg Normal [facility] Comment on above: Performed By: #### C MP, LIPID #### [facility] [address] [place] [address] Dr. Kylee Bunch UA RANDOM W/MICROSCOPICon BACTERIA NONE SEEN Normal NONE SEEN [facility] Comment on above: Performed By: #### C MP, LIPID #### [facility] [address] [place] [address] Dr. Kylee Bunch Bilirubin Ql (U) Negative Normal NEGATIVE [facility] Comment on above: Performed By: #### C MP, LIPID #### [facility] [address] [place] [address] Dr. Kylee Bunch CAST NONE SEEN Normal NONE SEEN [facility] Comment on above: Performed By: #### C MP, LIPID #### [facility] [address] [place] [address] Dr. Kylee Bunch Clarity (U) CLEAR Normal CLEAR [facility] Comment on above: Performed By: #### C MP, LIPID #### [facility] [address] [place] [address] Dr. Kylee Bunch Color (U) LT. YELLOW Normal YELLOW [facility] Comment on above: Performed By: #### C MP, LIPID #### [facility] [address] [place] [address] Dr. Kylee Bunch Crystals LM Nom (Urine sed) NONE SEEN Normal NONE SEEN [facility] Comment on above: Performed By: #### C MP, LIPID #### [facility] [address] [place] [address] Dr. Kylee Bunch Epithelial cells LM Ql (Urine sed) FEW Abnormal NONE SEEN /RARE [facility] Comment on above: Performed By: #### C MP, LIPID #### [facility] [address] [place] [address] Dr. Kylee Bunch Glucose Ql (U) Negative Normal NEGATIVE [facility] Comment on above: Performed By: #### C MP, LIPID #### [facility] [address] [place] [address] Dr. Kylee Bunch Hemoglobin Ql (U) TRACE-LYSED Abnormal NEGATIVE [facility] Comment on above: Performed By: #### C MP, LIPID #### [facility] [address] [place] [address] Dr. Kylee Bunch Ketones Ql (U) Negative Normal NEGATIVE [facility] Comment on above: Performed By: #### C MP, LIPID #### [facility] [address] [place] [address] Dr. Kylee Bunch LEUKOCYTES Negative Normal NEGATIVE [facility] Comment on above: Performed By: #### C MP, LIPID #### [facility] [address] [place] [address] Dr. Kylee Bunch MUCOUS NONE SEEN Normal NONE SEEN [facility] Comment on above: Performed By: #### C MP, LIPID #### [facility] [address] [address] [address] Kylee Bunch Nitrite Ql (U) Negative Normal NEGATIVE [facility] Comment on above: Performed By: #### C MP, LIPID #### [facility] [address] [address] [address] Kylee Bunch pH (U) 6.0 [pH] Normal 5-9 [facility] Comment on above: Performed By: #### C MP, LIPID #### [facility] [address] [address] [address] Kylee Bunch RBC 2-5 Abnormal 0-2 [facility] Comment on above: Performed By: #### C MP, LIPID #### [facility] [address] [place] [address] Dr. Kylee Bunch SPEC GRAVITY 1.020 Normal 1.005-<=1. 025 [facility] Comment on above: Performed By: #### C MP, LIPID #### [facility] [address] [place] [address] Dr. Kylee Bunch UA PROTEIN Negative Normal NEGATIVE/ TRACE [facility] Comment on above: Performed By: #### C MP, LIPID #### [facility] [address] [address] [address] Kylee Bunch Urobilinogen Qn (U) 0.2 {Gemini'U}/dL Normal 0.2 - 1. 0 [facility] Comment on above: Performed By: #### C MP, LIPID #### [facility] [address] [place] [address] Dr. Kylee Bunch WBC NONE SEEN Normal NONE SEEN [facility] Comment on above: Performed By: #### C MP, LIPID #### [facility] [address] [place] [address] Dr. Kylee Bunch Basic Metab w/rfx MGon 01-07 (cont.) Normal [facility] Comment on above: Result Comment: Aver age GFR for 70 or more years old: 75 mL/min/1.73sq m Chronic Kidney Disease: <60 mL/min/1.73sq m Kidney failure: <15 mL/min/1.73sq m eGFR calculated using average adult body mass. Additional eGFR calculator available at: http://www.[employer]or[employer].Cloudwords/multiple_crcl_2012.htm Performed By: #### C DP, MELVIN, BMPX, MG, IPF #### [facility] [address] [place] [id number] Soil Checker: Francisco J Fonseca MD Anion gap [Moles/Vol] 9 mmol/L Normal 9-17 [facility] Comment on above: Performed By: #### C DP, MELVIN, BMPX, MG, IPF #### [place] [address] Soil Checker: Francisco J Fonseca MD Calcium [Mass/Vol] 7.8 mg/dL Low 8.6-10.4 [facility] Comment on above: Performed By: #### C DP, MELVIN, BMPX, MG, IPF #### [address] [address] Soil Checker: Francisco J Fonseca MD Chloride [Moles/Vol] 102 mmol/L Normal 98-107 [facility] Comment on above: Performed By: #### C DP, MELVIN, BMPX, MG, IPF #### [facility] [address] [place] [id number] Soil Checker: Francisco J Fonseca MD CO2 [Moles/Vol] 24 mmol/L Normal 20-31 [facility] Comment on above: Performed By: #### C DP, MELVIN, BMPX, MG, IPF #### [facility] [address] [place] [id number] Soil Checker: Francisco J Fonseca MD Creatinine [Mass/Vol] 0.49 mg/dL Low 0.70-1.20 [facility] Comment on above: Performed By: #### C DP, MELVIN, BMPX, MG, IPF #### [address] [address] Soil Checker: Francisco J Fonseca MD GFR, Amer >60 Normal >60 [facility] Comment on above: Performed By: #### C DP, MELVIN, BMPX, MG, IPF #### [address] [address] Soil Checker: Francisco J Fonseca MD GFR,non Amer >60 Normal >60 [facility] Comment on above: Performed By: #### C DP, MELVIN, BMPX, MG, IPF #### [address] [address] Soil Checker: Francisco J Fonseca MD Glucose [Mass/Vol] 79 mg/dL Normal 70-99 [facility] Comment on above: Performed By: #### C DP, MELVIN, BMPX, MG, IPF #### [address] [address] Soil Checker: Francisco J Fonseca MD Potassium [Moles/Vol] 3.5 mmol/L Low 3.7-5.3 [facility] Comment on above: Performed By: #### C DP, MELVIN, BMPX, MG, IPF #### [address] [address] Soil Checker: Francisco J Fonseca MD Sodium [Moles/Vol] 135 mmol/L Normal 135-144 [facility] Comment on above: Performed By: #### C DP, MELVIN, BMPX, MG, IPF #### [facility] [address] [place] [id number] Soil Checker: Francisco J Fonseca MD Urea nitrogen [Mass/Vol] 7 mg/dL Low 8-23 [facility] Comment on above: Performed By: #### C DP, MELVIN, BMPX, MG, IPF #### [address] [address] Soil Checker: Francisco J Fonseca MD CBC with Diffon 01-07-2022 Abs. Basophil 0.00 k/uL Normal 0.0-0.2 [facility] Comment on above: Performed By: #### C DP #### [address] [address] Soil Checker: Francisco J Fonseca MD Abs.Imm.Granulocyte 0.00 k/uL Normal 0.00-0.30 [facility] Comment on above: Performed By: #### C DP #### [place] [address] Soil Checker: Francisco J Fonseca MD Abs.Neutrophil (Seg) 8.33 k/uL High 1.8-7.7 [facility] Comment on above: Performed By: #### C DP #### [place] [address] Soil Checker: Francisco J Fonseca MD Eosinophils (Bld) [#/Vol] 0.11 10*3/uL Normal 0.0-0.4 [facility] Comment on above: Performed By: #### C DP #### [place] [address] Soil Checker: Francisco J Fonseca MD Lymphocytes (Bld) [#/Vol] 1.22 10*3/uL Normal 1.0-4.8 [facility] Comment on above: Performed By: #### C DP #### [address] [address] Soil Checker: Francisco J Fonseca MD Monocytes (Bld) [#/Vol] 1.44 10*3/uL High 0.1-0.8 [facility] Comment on above: Performed By: #### C DP #### [place] [address] Soil Checker: Francisco J Fonseca MD Neutrophil (Seg) 75 % High 36-66 [facility] Comment on above: Performed By: #### C DP #### [address] [address] Soil Checker: Francisco J Fonseca MD NRBC Automated 0.0 per 100 WBC Normal 0.0 [facility] Comment on above: Performed By: #### C DP #### [address] [address] Soil Checker: Francisco J Fonseca MD WBC (Bld) [#/Vol] 11.1 10*3/uL Normal 3.5-11.3 [facility] Comment on above: Performed By: #### C DP #### [address] [address] Soil Checker: Francisco J Fonseca MD Basophils/100 WBC (Bld) 0 % Normal 0-2 [facility] Comment on above: Performed By: #### C DP #### [address] [address] Soil Checker: Francisco J Fonseca MD Eosinophils/100 WBC (Bld) 1 % Normal 1-4 [facility] Comment on above: Performed By: #### C DP #### [address] [address] Soil Checker: Francisco J Fonseca MD Immature granulocytes/100 WBC (Bld) 0 % Normal 0 [facility] Comment on above: Performed By: #### C DP #### [address] [address] Soil Checker: Francisco J Fonseca MD Lymphocytes/100 WBC (Bld) 11 % Low 24-44 [facility] Comment on above: Performed By: #### C DP #### [address] [address] Soil Checker: Francisco J Fonseca MD Monocytes/100 WBC (Bld) 13 % High 1-7 [facility] Comment on above: Performed By: #### C DP #### [address] [address] Soil Checker: Francisco J Fonseca MD Morphology Walter (Bld) [Interp] ANISOCYTOSIS PRESENT Normal [facility] Comment on above: Result Comment: MICR OCYTOSIS PRESENT 1+ TARGET CELLS 1+ ACANTHOCYTES Performed By: #### C DP #### [address] [address] Soil Checker: Francisco J Fonseca MD Erythrocyte distribution width (RBC) [Ratio] 17.3 % High 11.8-14.4 [facility] Comment on above: Performed By: #### C DP #### [address] [address] Soil Checker: Francisco J Fonseca MD Hematocrit (Bld) [Volume fraction] 36.6 % Low 40.7-50.3 [facility] Comment on above: Performed By: #### C DP #### [address] [address] Soil Checker: Francisco J Fonseca MD Hemoglobin (Bld) [Mass/Vol] 13.0 g/dL Normal 13.0-17.0 [facility] Comment on above: Performed By: #### C DP #### [address] [address] Soil Checker: Francisco J Fonseca MD MCH (RBC) [Entitic mass] 26.5 pg Normal 25.2-33.5 [facility] Comment on above: Performed By: #### C DP #### [address] [address] Soil Checker: Francisco J Fonseca MD MCHC (RBC) [Mass/Vol] 35.5 g/dL High 28.4-34.8 [facility] Comment on above: Performed By: #### C DP #### [address] [place] [address] Soil Checker: Francisco J Fonseca MD MCV (RBC) [Entitic vol] 74.5 fL Low 82.6-102.9 [facility] Comment on above: Performed By: #### C DP #### [facility] [place] [address] Soil Checker: Francisco J Fonseca MD Platelet Count See Reflexed IPF Result Normal 138-453 [facility] Comment on above: Performed By: #### C DP #### [address] [place] [address] Soil Checker: Francisco J Fonseca MD RBC (Bld) [#/Vol] 4.91 10*6/uL Normal 4.21-5.77 [facility] Comment on above: Performed By: #### C DP #### [address] [address] Soil Checker: Francisco J Fonseca MD Laboratory - Chemistry and C hemistry - challengeon 01-07-2022 Magnesium [Mass/Vol] 1.5 mg/dL Low 1.6 - 2 .6 mg/dL [facility] Anion gap [Moles/Vol] 9 mmol/L 9 - 17 mmol/L [facility] Calcium [Mass/Vol] 7.8 mg/dL Low 8.6 - 10. 4 mg/dL [facility] Chloride [Moles/Vol] 102 mmol/L 98 - 10 7 mmol/L [facility] CO2 [Moles/Vol] 24 mmol/L 20 - 31 mmol/L [facility] Creatinine [Mass/Vol] 0.49 mg/dL Low 0.70 - 1.20 mg/dL [facility] GFR/1.73 sq M.predicted MDRD (S/P/Bld) [Vol rate/Area] [facility] Comment on above: Average GFR for 70 o r more years old: 75 mL/min/1.73sq m Chronic Kidney Disease: <60 mL/min/1.73sq m Kidney failure: <15 mL/min/1.73sq m eGFR calculated using average adult body mass. Additional eGFR calculator available at: http://www.[employer]/multiple_crcl_2012.htm Glucose [Mass/Vol] 79 mg/dL 70 - 99 mg/dL [facility] Phosphate [Mass/Vol] 2.3 mg/dL Low 2.5 - 4 .5 mg/dL [facility] Potassium [Moles/Vol] 3.5 mmol/L Low 3.7 - 5.3 mmol/L [facility] Sodium [Moles/Vol] 135 mmol/L 135 - 144 mmol/L [facility] Urea nitrogen (BldV) [Mass/Vol] 7 mg/dL Low 8 - 23 mg/dL [facility] Laboratory - Hematology and Cell countson 01-07-2022 Basophils (Bld) [#/Vol] 0.00 10*3/uL [facility] Hematocrit (Bld) [Volume fraction] 36.6 % Low 40.7 - 50.3 % [facility] Hemoglobin (Bld) [Mass/Vol] 13.0 g/dL 13.0 - 17.0 g/dL [facility] MCH (RBC) [Entitic mass] 26.5 pg 25.2 - 33.5 pg [facility] MCHC (RBC) [Mass/Vol] 35.5 g/dL High 28.4 - 34.8 g/dL [facility] MCV (RBC) [Entitic vol] 74.5 fL Low 82.6 - 102.9 fL [facility] Morphology Walter (Bld) [Interp] MICROCYTOSIS PRESENT [facility] Morphology Walter (Bld) [Interp] 1+ TARGET CELLS [facility] Morphology Walter (Bld) [Interp] 1+ ACANTHOCYTES [facility] Platelet distribution width (Bld) [Ratio] 17.3 % High 11.8 - 14.4 % [facility] Platelets (Bld) [#/Vol] See Reflexed IPF Result [facility] RBC (Bld) [#/Vol] 4.91 10*6/uL 4.21 - 5.77 m/uL [facility] Segmented neutrophils/100 WBC (Bld) 75 % High 36 - 66 % [facility] WBC (Bld) [#/Vol] 11.1 10*3/uL [facility] Magnesiumon 01-07-2022 Magnesium [Mass/Vol] 1.5 mg/dL Low 1.6-2.6 [facility] Comment on above: Performed By: #### C DP #### [facility] [address] [place] [address] Soil Checker: Francisco J Fonseca MD No Panel Informationon 01-07 Absolute Eos # 0.11 [facility] Absolute Immature Granulocyte 0.00 [facility] Absolute Lymph # 1.22 [facility] Absolute Flathead # 1.44 High [facility] Interpretation and review of laboratory results Abnormal [facility] NRBC Automated 0.0 0.0 per 100 WBC [facility] Segs Absolute 8.33 High [facility] Platelet, Fluorescence 230 [facility] Comment on above: ORDERED BY LAB Platelet, Immature Fraction 10.1 % 1.1 - 10.3 % [facility] Comment on above: ORDERED BY LAB [facility] Interpretation and review of laboratory results Abnormal [facility] GFR >60 >60 mL/min [facility] GFR Non- >60 >60 mL/min [facility] Interpretation and review of laboratory results Abnormal [facility] PLT, Immature Fract.on 01-07 Platelet, Fluoresc. 230 k/uL Normal 138-453 [facility] Comment on above: Result Comment: ORDE RED BY LAB Performed By: #### C DP #### [facility] [address] [place] [address] Soil Checker: Francisco J Fonseca MD PLT, Immature Fract. 10.1 % Normal 1.1-10.3 [facility] Comment on above: Result Comment: ORDE RED BY LAB Performed By: #### C DP #### [facility] [address] [place] [phone] Soil Checker: Francisco J Fonseca MD Phosphorus, Inorg.on 022 Phosphorus, Inorg. 2.3 mg/dL Low 2.5-4.5 [facility] Comment on above: Performed By: #### C DP, MELVIN, BMPX, MG, IPF #### [facility] [address] [place] [address] Soil Checker: Francisco J Fonseca MD Basic Metab w/rfx MGon 01-06 (cont.) Normal [facility] Comment on above: Result Comment: Aver age GFR for 70 or more years old: 75 mL/min/1.73sq m Chronic Kidney Disease: <60 mL/min/1.73sq m Kidney failure: <15 mL/min/1.73sq m eGFR calculated using average adult body mass. Additional eGFR calculator available at: http://www.[employer]/multiple_crcl_2012.htm Performed By: #### C DP, MELVIN, BMPX, IPF #### [facility] [address] [place] [address] Soil Checker: Francisco J Fonseca MD Anion gap [Moles/Vol] 11 mmol/L Normal 9-17 [facility] Comment on above: Performed By: #### C DP, MELVIN, BMPX, IPF #### [facility] [address] [place] [address] Soil Checker: Francisco J Fonseca MD Calcium [Mass/Vol] 7.7 mg/dL Low 8.6-10.4 [facility] Comment on above: Performed By: #### C DP, MELVIN, BMPX, IPF #### [facility] [address] [place] [address] Soil Checker: Francisco J Fonseca MD Chloride [Moles/Vol] 99 mmol/L Normal 98-107 [facility] Comment on above: Performed By: #### C DP, MELVIN, BMPX, IPF #### [facility] [address] [place] [address] Soil Checker: Francisco J Fonseca MD CO2 [Moles/Vol] 23 mmol/L Normal 20-31 [facility] Comment on above: Performed By: #### C DP, MELVIN, BMPX, IPF #### [facility] [address] [place] [address] Soil Checker: Francisco J Fonseca MD Creatinine [Mass/Vol] 0.50 mg/dL Low 0.70-1.20 [facility] Comment on above: Performed By: #### C DP, MELVIN, BMPX, IPF #### [facility] [address] [place] [address] Soil Checker: Francisco J Fonseca MD GFR, Amer >60 Normal >60 [facility] Comment on above: Performed By: #### C DP, MELVIN, BMPX, IPF #### [facility] [address] [place] [address] Soil Checker: Francisco J Fonseca MD GFR,non Amer >60 Normal >60 [facility] Comment on above: Performed By: #### C DP, MELVIN, BMPX, IPF #### [facility] [address] [place] [address] Soil Checker: Francisco J Fonseca MD Glucose [Mass/Vol] 149 mg/dL High 70-99 [facility] Comment on above: Performed By: #### C DP, MELVIN, BMPX, IPF #### [facility] [address] [place] [address] Soil Checker: Francisco J Fonseca MD Potassium [Moles/Vol] 3.6 mmol/L Low 3.7-5.3 [facility] Comment on above: Performed By: #### C DP, MELVIN, BMPX, IPF #### [address] [address] Soil Checker: Francisco J Fonseca MD Sodium [Moles/Vol] 133 mmol/L Low 135-144 [facility] Comment on above: Performed By: #### C DP, MELVIN, BMPX, IPF #### [place] [address] Soil Checker: Francisco J Fonseca MD Urea nitrogen [Mass/Vol] 11 mg/dL Normal 8-23 [facility] Comment on above: Performed By: #### C DP, MELVIN, BMPX, IPF #### [place] [address] Soil Checker: Francisco J Fonseca MD CBC with Diffon 01-06-2022 Abs. Basophil 0.03 k/uL Normal 0.00-0.20 [facility] Comment on above: Performed By: #### C DP, MELVIN, BMPX, IPF #### [address] [address] Soil Checker: Francisco J Fonseca MD Abs.Imm.Granulocyte 0.05 k/uL Normal 0.00-0.30 [facility] Comment on above: Performed By: #### C DP, MELVIN, BMPX, IPF #### [address] [address] Soil Checker: Francisco J Fonseca MD Abs.Neutrophil (Seg) 11.21 k/uL High 1.50-8.10 [facility] Comment on above: Performed By: #### C DP, MELVIN, BMPX, IPF #### [facility] [address] [place] [address] Soil Checker: Francisco J Fonseca MD Basophils/100 WBC (Bld) 0 % Normal 0-2 [facility] Comment on above: Performed By: #### C DP, MELVIN, BMPX, IPF #### [address] [address] Soil Checker: Francisco J Fonseca MD Eosinophils (Bld) [#/Vol] 0.09 10*3/uL Normal 0.00-0.44 [facility] Comment on above: Performed By: #### C DP, MELVIN, BMPX, IPF #### [facility] [address] [place] [address] Soil Checker: Francisco J Fonseca MD Eosinophils/100 WBC (Bld) 1 % Normal 1-4 [facility] Comment on above: Performed By: #### C DP, MELVIN, BMPX, IPF #### [place] [address] Soil Checker: Francisco J Fonseca MD Erythrocyte distribution width (RBC) [Ratio] 18.4 % High 11.8-14.4 [facility] Comment on above: Performed By: #### C DP, MELVIN, BMPX, IPF #### [facility] [address] [place] [address] Soil Checker: Francisco J Fonseca MD Hematocrit (Bld) [Volume fraction] 38.2 % Low 40.7-50.3 [facility] Comment on above: Performed By: #### C DP, MELVIN, BMPX, IPF #### [facility] [address] [place] [address] Soil Checker: Francisco J Fonseca MD Hemoglobin (Bld) [Mass/Vol] 13.2 g/dL Normal 13.0-17.0 [facility] Comment on above: Performed By: #### C DP, MELVIN, BMPX, IPF #### [facility] [address] [place] [address] Soil Checker: Francisco J Fonseca MD Immature granulocytes/100 WBC (Bld) 0 % Normal 0 [facility] Comment on above: Performed By: #### C DP, MELVIN, BMPX, IPF #### [place] [address] Soil Checker: Francisco J Fonseca MD Lymphocytes (Bld) [#/Vol] 0.82 10*3/uL Low 1.10-3.70 [facility] Comment on above: Performed By: #### C DP, MELVIN, BMPX, IPF #### [address] [address] Soil Checker: Francisco J Fonseca MD Lymphocytes/100 WBC (Bld) 6 % Low 24-43 [facility] Comment on above: Performed By: #### C DP, MELVIN, BMPX, IPF #### [place] [address] Soil Checker: Francisco J Fonseca MD MCH (RBC) [Entitic mass] 26.7 pg Normal 25.2-33.5 [facility] Comment on above: Performed By: #### C DP, MELVIN, BMPX, IPF #### [place] [address] Soil Checker: Francisco J Fonseca MD MCHC (RBC) [Mass/Vol] 34.6 g/dL Normal 28.4-34.8 [facility] Comment on above: Performed By: #### C DP, MELVIN, BMPX, IPF #### [facility] [address] [place] [address] Soil Checker: Francisco J Fonseca MD MCV (RBC) [Entitic vol] 77.2 fL Low 82.6-102.9 [facility] Comment on above: Performed By: #### C DP, MELVIN, BMPX, IPF #### [address] [address] Soil Checker: Francisco J Fonseca MD Monocytes (Bld) [#/Vol] 1.14 10*3/uL Normal 0.10-1.20 [facility] Comment on above: Performed By: #### C DP, MELVIN, BMPX, IPF #### [address] [address] Soil Checker: Francisco J Fonseca MD Monocytes/100 WBC (Bld) 9 % Normal 3-12 [facility] Comment on above: Performed By: #### C DP, MELVIN, BMPX, IPF #### [address] [address] Soil Checker: Francisco J Fonseca MD Neutrophil (Seg) 84 % High 36-65 [facility] Comment on above: Performed By: #### C DP, MELVIN, BMPX, IPF #### [address] [address] Soil Checker: Francisco J Fonseca MD NRBC Automated 0.0 per 100 WBC Normal 0.0 [facility] Comment on above: Performed By: #### C DP, MELVIN, BMPX, IPF #### [address] [address] Soil Checker: Francisco J Fonseca MD Platelet Count See Reflexed IPF Result Normal 138-453 [facility] Comment on above: Performed By: #### C DP, MELVIN, BMPX, IPF #### [address] [address] Soil Checker: Francisco J Fonseca MD RBC (Bld) [#/Vol] 4.95 10*6/uL Normal 4.21-5.77 [facility] Comment on above: Performed By: #### C DP, MELVIN, BMPX, IPF #### [address] [address] Soil Checker: Francisco J Fonseca MD RBC morphology finding Nom (Bld) ANISOCYTOSIS PRESENT Normal [facility] Comment on above: Result Comment: MICR OCYTOSIS PRESENT Performed By: #### C DP, MELVIN, BMPX, IPF #### [facility] [address] [place], [place] [phone] Soil Checker: Francisco J Fonseca MD WBC (Bld) [#/Vol] 13.3 10*3/uL High 3.5-11.3 [facility] Comment on above: Performed By: #### C DP, MELVIN, BMPX, IPF #### [facility] [address] [place], [place] [phone] Soil Checker: Francisco J Fonseca MD Laboratory - Chemistry and C hemistry - challengeon 01-06-2022 Anion gap [Moles/Vol] 11 mmol/L 9 - 17 mmol/L [facility] Calcium [Mass/Vol] 7.7 mg/dL Low 8.6 - 10. 4 mg/dL [facility] Chloride [Moles/Vol] 99 mmol/L 98 - 10 7 mmol/L [facility] CO2 [Moles/Vol] 23 mmol/L 20 - 31 mmol/L [facility] Creatinine [Mass/Vol] 0.5 mg/dL Low 0.70 - 1.20 mg/dL [facility] GFR/1.73 sq M.predicted MDRD (S/P/Bld) [Vol rate/Area] [facility] Comment on above: Average GFR for 70 o r more years old: 75 mL/min/1.73sq m Chronic Kidney Disease: <60 mL/min/1.73sq m Kidney failure: <15 mL/min/1.73sq m eGFR calculated using average adult body mass. Additional eGFR calculator available at: http://www.[employer]/multiple_crcl_2012.htm Glucose [Mass/Vol] 149 mg/dL High 70 - 99 mg/dL [facility] Phosphate [Mass/Vol] 2.5 mg/dL 2.5 - 4 .5 mg/dL [facility] Potassium [Moles/Vol] 3.6 mmol/L Low 3.7 - 5.3 mmol/L [facility] Sodium [Moles/Vol] 133 mmol/L Low 135 - 144 mmol/L [facility] Urea nitrogen (BldV) [Mass/Vol] 11 mg/dL 8 - 23 mg/dL [facility] Laboratory - Hematology and Cell countson 01-06-2022 Basophils (Bld) [#/Vol] 0.03 10*3/uL [facility] Basophils/100 WBC (Bld) 0 % 0 - 2 % [facility] Eosinophils/100 WBC (Bld) 1 % 1 - 4 % [facility] Hematocrit (Bld) [Volume fraction] 38.2 % Low 40.7 - 50.3 % [facility] Hemoglobin (Bld) [Mass/Vol] 13.2 g/dL 13.0 - 17.0 g/dL [facility] Immature granulocytes/100 WBC (Bld) 0 % 0 [facility] Lymphocytes/100 WBC (Bld) 6 % Low 24 - 43 % [facility] MCH (RBC) [Entitic mass] 26.7 pg 25.2 - 33.5 pg [facility] MCHC (RBC) [Mass/Vol] 34.6 g/dL 28.4 - 34.8 g/dL [facility] MCV (RBC) [Entitic vol] 77.2 fL Low 82.6 - 102.9 fL [facility] Monocytes/100 WBC (Bld) 9 % 3 - 12 % [facility] Platelet distribution width (Bld) [Ratio] 18.4 % High 11.8 - 14.4 % [facility] Platelets (Bld) [#/Vol] See Reflexed IPF Result [facility] RBC (Bld) [#/Vol] 4.95 10*6/uL 4.21 - 5.77 m/uL [facility] RBC (Bld) [#/Vol] ANISOCYTOSIS PRESENT [facility] Comment on above: MICROCYTOSIS PRESENT Segmented neutrophils/100 WBC (Bld) 84 % High 36 - 65 % [facility] WBC (Bld) [#/Vol] 13.3 10*3/uL High [facility] No Panel Informationon 01-06 Platelet, Fluorescence 252 [facility] Platelet, Immature Fraction 10.1 % 1.1 - 10.3 % [facility] Absolute Eos # 0.09 [facility] Absolute Immature Granulocyte 0.05 [facility] Absolute Lymph # 0.82 Low [facility] Absolute [place] # 1.14 [facility] Interpretation and review of laboratory results Abnormal [facility] NRBC Automated 0.0 0.0 per 100 WBC [facility] Segs Absolute 11.21 High [facility] GFR >60 >60 mL/min [facility] GFR Non- >60 >60 mL/min [facility] Interpretation and review of laboratory results Abnormal [facility] PLT, Immature Fract.on 01-06 Platelet, Fluoresc. 252 k/uL Normal 138-453 [facility] Comment on above: Performed By: #### C DP, MELVIN, BMPX, IPF #### [facility] [address] [place] [address] [phone] Soil Checker: Francisco J Fonseca MD PLT, Immature Fract. 10.1 % Normal 1.1-10.3 [facility] Comment on above: Performed By: #### C DP, MELVIN, BMPX, IPF #### [facility] [address] [place] [address] Soil Checker: Francisco J Fonseca MD Phosphorus, Inorg.on 022 Phosphorus, Inorg. 2.5 mg/dL Normal 2.5-4.5 [facility] Comment on above: Performed By: #### C DP, MELVIN, BMPX, IPF #### [facility] [address] [place] [address] Soil Checker: Francisco J Fonseca MD Basic Metab w/rfx MGon 01-05 Potassium [Moles/Vol] 3.4 mmol/L Low 3.7-5.3 [facility] Comment on above: Performed By: #### C DP, MELVIN, BMPX, IPF #### [facility] [address] [place] [address] Soil Checker: Francisco J Fonseca MD Urea nitrogen [Mass/Vol] 14 mg/dL Normal 8-23 [facility] Comment on above: Performed By: #### C DP, MELVIN, BMPX, IPF #### [facility] [address] [place] [address] Soil Checker: Francisco J Fonseca MD Anion gap [Moles/Vol] 12 mmol/L Normal 9-17 [facility] Comment on above: Performed By: #### C DP, MELVIN, BMPX, IPF #### [facility] [address] [place] [address] Soil Checker: Francisco J Fonseca MD Calcium [Mass/Vol] 8.1 mg/dL Low 8.6-10.4 [facility] Comment on above: Performed By: #### C DP, MELVIN, BMPX, IPF #### [facility] [address] [place] [address] Soil Checker: Francisco J Fonesca MD Chloride [Moles/Vol] 98 mmol/L Normal 98-107 [facility] Comment on above: Performed By: #### C DP, MELVIN, BMPX, IPF #### [facility] [address] [place] [address] Soil Checker: Francisco J Fonseca MD CO2 [Moles/Vol] 24 mmol/L Normal 20-31 [facility] Comment on above: Performed By: #### C DP, MELVIN, BMPX, IPF #### [facility] [address] [place] [address] Soil Checker: Francisco J Fonseca MD Creatinine [Mass/Vol] 0.54 mg/dL Low 0.70-1.20 [facility] Comment on above: Performed By: #### C DP, MELVIN, BMPX, IPF #### [facility] [place] [address] Soil Checker: Francisco J Fonseca MD Glucose [Mass/Vol] 122 mg/dL High 70-99 [facility] Comment on above: Performed By: #### C DP, MELVIN, BMPX, IPF #### [facility] [address] [place] [address] Soil Checker: Francisco J Fonseca MD Sodium [Moles/Vol] 134 mmol/L Low 135-144 [facility] Comment on above: Performed By: #### C DP, MELVIN, BMPX, IPF #### [facility] [address] [place] [phone] Soil Checker: Francisco J Fonseca MD (cont.) [facility] Comment on above: Result Comment: Aver age GFR for 70 or more years old: 75 mL/min/1.73sq m Chronic Kidney Disease: <60 mL/min/1.73sq m Kidney failure: <15 mL/min/1.73sq m eGFR calculated using average adult body mass. Additional eGFR calculator available at: http://www.[employer]/multiple_crcl_2012.htm Performed By: #### C DP, MELVIN, BMPX, IPF #### [facility] [address] [place] [id number] Soil Checker: Francisco J Fonseca MD Anion gap [Moles/Vol] 11 mmol/L Normal 9-17 [facility] Comment on above: Performed By: #### C DP, MELVIN, BMPX, IPF #### [address] [id number] Soil Checker: Francisco J Fonseca MD Calcium [Mass/Vol] 9.1 mg/dL Normal 8.6-10.4 [facility] Comment on above: Performed By: #### C DP, MELVIN, BMPX, IPF #### [facility] [address] [place] [address] Soil Checker: Francisco J Fonseca MD Chloride [Moles/Vol] 99 mmol/L Normal 98-107 [facility] Comment on above: Performed By: #### C DP, MELVIN, BMPX, IPF #### [facility] [address] [place] [address] Soil Checker: Francisco J Fonseca MD CO2 [Moles/Vol] 25 mmol/L Normal 20-31 [facility] Comment on above: Performed By: #### C DP, MELVIN, BMPX, IPF #### [facility] [address] [place] [address] Soil Checker: Francisco J Fonseca MD Creatinine [Mass/Vol] 0.57 mg/dL Low 0.70-1.20 [facility] Comment on above: Performed By: #### C DP, MELVIN, BMPX, IPF #### [facility] [address] [place] [address] Soil Checker: Francisco J Fonseca MD GFR, Amer >60 Normal >60 [facility] Comment on above: Performed By: #### C DP, MELVIN, BMPX, IPF #### [facility] [address] [place] [address] Soil Checker: Francisco J Fonseca MD GFR,non Amer >60 Normal >60 [facility] Comment on above: Performed By: #### C DP, MELVIN, BMPX, IPF #### [facility] [address] [place] [address] Soil Checker: Francisco J Fonseca MD Glucose [Mass/Vol] 129 mg/dL High 70-99 [facility] Comment on above: Performed By: #### C DP, MELVIN, BMPX, IPF #### [facility] [address] [place] [address] 16992 Soil Checker: Francsico J Fonseca MD Potassium [Moles/Vol] 3.5 mmol/L Low 3.7-5.3 [facility] Comment on above: Performed By: #### C DP, MELVIN, BMPX, IPF #### [address] [address] Soil Checker: Francisco J Fonseca MD Sodium [Moles/Vol] 135 mmol/L Normal 135-144 [facility] Comment on above: Performed By: #### C DP, MELVIN, BMPX, IPF #### [facility] [address] [place] [address] 82572 Soil Checker: Francisco J Fonseca MD Urea nitrogen [Mass/Vol] 15 mg/dL Normal 8-23 [facility] Comment on above: Performed By: #### C DP, MELVIN, BMPX, IPF #### [address] [address] Soil Checker: Francisco J Fonseca MD (cont.) [facility] Comment on above: Result Comment: Aver age GFR for 70 or more years old: 75 mL/min/1.73sq m Chronic Kidney Disease: <60 mL/min/1.73sq m Kidney failure: <15 mL/min/1.73sq m eGFR calculated using average adult body mass. Additional eGFR calculator available at: http://www.Storify.Cloudwords/multiple_crcl_2012.htm Performed By: #### C DP, MELVIN, BMPX, IPF #### [address] [address] Soil Checker: Francisco J Fonseca MD Anion gap [Moles/Vol] 15 mmol/L Normal 9-17 [facility] Comment on above: Performed By: #### C DP, MELVIN, BMPX, IPF #### [address] [address] Soil Checker: Francisco J Fonseca MD Calcium [Mass/Vol] 8.2 mg/dL Low 8.6-10.4 [facility] Comment on above: Performed By: #### C DP, MELVIN, BMPX, IPF #### [facility] [address] [place] [address]1213 Soil Checker: Francisco J Fonseca MD Chloride [Moles/Vol] 98 mmol/L Normal 98-107 [facility] Comment on above: Performed By: #### C DP, MELVIN, BMPX, IPF #### [facility] [address] [place] [address] Soil Checker: Francisco J Fonseca MD CO2 [Moles/Vol] 23 mmol/L Normal 20-31 [facility] Comment on above: Performed By: #### C DP, MELVIN, BMPX, IPF #### [address] [address] Soil Checker: Francisco J Fonseca MD Creatinine [Mass/Vol] 0.66 mg/dL Low 0.70-1.20 [facility] Comment on above: Performed By: #### C DP, MELVIN, BMPX, IPF #### [address] [address] Soil Checker: Francisco J Fonseca MD GFR, Amer >60 Normal >60 [facility] Comment on above: Performed By: #### C DP, MELVIN, BMPX, IPF #### [facility] [address] [place] [address]207 Soil Checker: Francisco J Fonseca MD GFR,non Amer >60 Normal >60 [facility] Comment on above: Performed By: #### C DP, MELVIN, BMPX, IPF #### [facility] [address] [place] [address] Soil Checker: Francisco J Fonseca MD Glucose [Mass/Vol] 90 mg/dL Normal 70-99 [facility] Comment on above: Performed By: #### C DP, MELVIN, BMPX, IPF #### [facility] [address] [place] [address]15 Soil Checker: Francisco J Fonseca MD Potassium [Moles/Vol] 3.7 mmol/L Normal 3.7-5.3 [facility] Comment on above: Performed By: #### C DP, MELVIN, BMPX, IPF #### [facility] [address] [place] [address] Soil Checker: Francisco J Fonseca MD Sodium [Moles/Vol] 136 mmol/L Normal 135-144 [facility] Comment on above: Performed By: #### C DP, MELVIN, BMPX, IPF #### [place] [address] Soil Checker: Francisco J Fonseca MD Urea nitrogen [Mass/Vol] 20 mg/dL Normal 8-23 [facility] Comment on above: Performed By: #### C DP, MELVIN, BMPX, IPF #### [facility] [address] [place] [address] Soil Checker: Francisco J Fonseca MD CBC with Diffon 01-05-2022 Abs. Basophil 0.04 k/uL Normal 0.00-0.20 [facility] Comment on above: Performed By: #### C DP, MELVIN, BMPX, IPF #### [facility] [address] [place] [address] Soil Checker: Francisco J Fonseca MD Abs.Imm.Granulocyte 0.08 k/uL Normal 0.00-0.30 [facility] Comment on above: Performed By: #### C DP, MELVIN, BMPX, IPF #### [facility] [address] [place] [address] 86695 Soil Checker: Francisco J Fonseca MD Abs.Neutrophil (Seg) 14.26 k/uL High 1.50-8.10 [facility] Comment on above: Performed By: #### C DP, MELVIN, BMPX, IPF #### [facility] [address] [place] [address] 18175 Soil Checker: Francisco J Fonseca MD Basophils/100 WBC (Bld) 0 % Normal 0-2 [facility] Comment on above: Performed By: #### C DP, MELVIN, BMPX, IPF #### [address] [address] Soil Checker: Francisco J Fonseca MD Eosinophils (Bld) [#/Vol] 0.11 10*3/uL Normal 0.00-0.44 [facility] Comment on above: Performed By: #### C DP, MELVIN, BMPX, IPF #### [place] [address] Soil Checker: Francisco J Fonseca MD Eosinophils/100 WBC (Bld) 1 % Normal 1-4 [facility] Comment on above: Performed By: #### C DP, MELVIN, BMPX, IPF #### [place] [address] Soil Checker: Francisco J Fonseca MD Immature granulocytes/100 WBC (Bld) 1 % High 0 [facility] Comment on above: Performed By: #### C DP, MELVIN, BMPX, IPF #### [address] [address] Soil Checker: Francisco J Fonseca MD Lymphocytes (Bld) [#/Vol] 0.96 10*3/uL Low 1.10-3.70 [facility] Comment on above: Performed By: #### C DP, MELVIN, BMPX, IPF #### [address] [address] Soil Checker: Francisco J Fonseca MD Lymphocytes/100 WBC (Bld) 6 % Low 24-43 [facility] Comment on above: Performed By: #### C DP, MELVIN, BMPX, IPF #### [address] [address] Soil Checker: Francisco J Fonseca MD Monocytes (Bld) [#/Vol] 0.97 10*3/uL Normal 0.10-1.20 [facility] Comment on above: Performed By: #### C DP, MELVIN, BMPX, IPF #### [address] [address] Soil Checker: Francisco J Fonseca MD Monocytes/100 WBC (Bld) 6 % Normal 3-12 [facility] Comment on above: Performed By: #### C DP, MELVIN, BMPX, IPF #### [address] [address] Soil Checker: Francisco J Fonseca MD Neutrophil (Seg) 87 % High 36-65 [facility] Comment on above: Performed By: #### C DP, MELVIN, BMPX, IPF #### [address] [address] Soil Checker: Francisco J Fonseca MD Erythrocyte distribution width (RBC) [Ratio] 18.6 % High 11.8-14.4 [facility] Comment on above: Performed By: #### C DP, MELVIN, BMPX, IPF #### [facility] [address] [place] [address] 8[address]17 Soil Checker: Francisco J Fonseca MD Hematocrit (Bld) [Volume fraction] 38.9 % Low 40.7-50.3 [facility] Comment on above: Performed By: #### C DP, MELVIN, BMPX, IPF #### [facility] [address] [place] [address] 21789 Soil Checker: Francisco J Fonseca MD Hemoglobin (Bld) [Mass/Vol] 13.5 g/dL Normal 13.0-17.0 [facility] Comment on above: Performed By: #### C DP, MELVIN, BMPX, IPF #### [facility] [address] [place] [address] 8[address]11 Soil Checker: Francisco J Fonseca MD MCH (RBC) [Entitic mass] 26.8 pg Normal 25.2-33.5 [facility] Comment on above: Performed By: #### C DP, MELVIN, BMPX, IPF #### [address] [address] Soil Checker: Francisco J Fonseca MD MCHC (RBC) [Mass/Vol] 34.7 g/dL Normal 28.4-34.8 [facility] Comment on above: Performed By: #### C DP, MELVIN, BMPX, IPF #### [address] [address] Soil Checker: Francisco J Fonseca MD MCV (RBC) [Entitic vol] 77.3 fL Low 82.6-102.9 [facility] Comment on above: Performed By: #### C DP, MELVIN, BMPX, IPF #### [address] [address] Soil Checker: Francisco J Fonseca MD NRBC Automated 0.0 per 100 WBC Normal 0.0 [facility] Comment on above: Performed By: #### C DP, MELVIN, BMPX, IPF #### [address] [address] Soil Checker: Francisco J Fonseca MD Platelet Count See Reflexed IPF Result Normal 138-453 [facility] Comment on above: Performed By: #### C DP, MELVIN, BMPX, IPF #### [address] [address] Soil Checker: Francisco J Fonseca MD RBC (Bld) [#/Vol] 5.03 10*6/uL Normal 4.21-5.77 [facility] Comment on above: Performed By: #### C DP, MELVIN, BMPX, IPF #### [address] [phone] Soil Checker: Francisco J Fonseca MD RBC morphology finding Nom (Bld) ANISOCYTOSIS PRESENT Normal [facility] Comment on above: Result Comment: MICR OCYTOSIS PRESENT Performed By: #### C DP, MELVIN, BMPX, IPF #### [facility] [address] [place], [place] [phone] Soil Checker: Francisco J Fonseca MD WBC (Bld) [#/Vol] 16.4 10*3/uL High 3.5-11.3 [facility] Comment on above: Performed By: #### C DP, MELVIN, BMPX, IPF #### [facility] [address] [place] [address] Soil Checker: Francisco J Fonseca MD FL UGIon 01-05-2022 FL UGI EXAMINATION: SINGLE CONTRAST UPPER GI SERIES 01/05/2022 HISTORY: ORDERING SYSTEM PROVIDED HISTORY: repair perf ulcer TECHNOLOGIST PROVIDED HISTORY: repair perf ulcer COMPARISON: None. TECHNIQUE: Multiple single contrast images of the esophagus, gastroesophageal junction and stomach were obtained following the oral administration of water soluble contrast. FLUOROSCOPY DOSE AND TYPE OR TIME AND EXPOSURES: DAP [id number] FINDINGS: Contrast was administered through the indwelling [...] Howard Aldridge MD 01/05/22 Final result Normal [facility] - Chemistry and C hemistry - challengeon 01-05-2022 Magnesium [Mass/Vol] 1.4 mg/dL Low 1.6 - 2 .6 mg/dL [email or web address] [facility] GFR/1.73 sq M.predicted MDRD (S/P/Bld) [Vol rate/Area] [facility] Comment on above: Average GFR for 70 o r more years old: 75 mL/min/1.73sq m Chronic Kidney Disease: <60 mL/min/1.73sq m Kidney failure: <15 mL/min/1.73sq m eGFR calculated using average adult body mass. Additional eGFR calculator available at: http://www.[employer]/multiple_crcl_2012.htm Potassium [Moles/Vol] 3.4 mmol/L Low 3.7 - 5.3 mmol/L [facility]ITAL[facility] Telephonics Urea nitrogen (BldV) [Mass/Vol] 14 mg/dL 8 - 23 mg/dL [facility] HOSPITALShenzhen Globalegrow [employer] Phosphate [Mass/Vol] 2.4 mg/dL Low 2.5 - 4 .5 mg/dL [facility] Magnesium [Mass/Vol] 1.5 mg/dL Low 1.6 - 2 .6 mg/dL [facility] Anion gap [Moles/Vol] 11 mmol/L 9 - 17 mmol/L [facility] Calcium [Mass/Vol] 9.1 mg/dL 8.6 - 10. 4 mg/dL [facility] Chloride [Moles/Vol] 99 mmol/L 98 - 10 7 mmol/L [facility] CO2 [Moles/Vol] 25 mmol/L 20 - 31 mmol/L [facility] Creatinine [Mass/Vol] 0.57 mg/dL Low 0.70 - 1.20 mg/dL [facility]ITAL[facility]phon[facility] GFR/1.73 sq M.predicted MDRD (S/P/Bld) [Vol rate/Area] [facility] Comment on above: Average GFR for 70 o r more years old: 75 mL/min/1.73sq m Chronic Kidney Disease: <60 mL/min/1.73sq m Kidney failure: <15 mL/min/1.73sq m eGFR calculated using average adult body mass. Additional eGFR calculator available at: http://www.[employer]/multiple_crcl_2012.htm Glucose [Mass/Vol] 129 mg/dL High 70 - 99 mg/dL [facility]ITAL[facility] Telephon[facility] Phosphate [Mass/Vol] 2.4 mg/dL Low 2.5 - 4 .5 mg/dL [facility] Potassium [Moles/Vol] 3.5 mmol/L Low 3.7 - 5.3 mmol/L [facility] Sodium [Moles/Vol] 135 mmol/L 135 - 144 mmol/L [facility] Urea nitrogen (BldV) [Mass/Vol] 15 mg/dL 8 - 23 mg/dL [facility] Laboratory - Hematology and Cell countson 01-05-2022 Basophils (Bld) [#/Vol] 0.04 10*3/uL [facility] Basophils/100 WBC (Bld) 0 % 0 - 2 % [facility] Eosinophils/100 WBC (Bld) 1 % 1 - 4 % [facility] Hematocrit (Bld) [Volume fraction] 38.9 % Low 40.7 - 50.3 % [facility] Hemoglobin (Bld) [Mass/Vol] 13.5 g/dL 13.0 - 17.0 g/dL [facility] Immature granulocytes/100 WBC (Bld) 1 % High 0 [facility] Lymphocytes/100 WBC (Bld) 6 % Low 24 - 43 % [facility] MCH (RBC) [Entitic mass] 26.8 pg 25.2 - 33.5 pg [facility] MCHC (RBC) [Mass/Vol] 34.7 g/dL 28.4 - 34.8 g/dL [facility] MCV (RBC) [Entitic vol] 77.3 fL Low 82.6 - 102.9 fL [facility] Monocytes/100 WBC (Bld) 6 % 3 - 12 % [facility] Platelet distribution width (Bld) [Ratio] 18.6 % High 11.8 - 14.4 % [facility] Platelets (Bld) [#/Vol] See Reflexed IPF Result [facility]ITAL[facility] RBC (Bld) [#/Vol] 5.03 10*6/uL 4.21 - 5.77 m/uL [facility] RBC (Bld) [#/Vol] ANISOCYTOSIS PRESENT [facility] Comment on above: MICROCYTOSIS PRESENT Segmented neutrophils/100 WBC (Bld) 87 % High 36 - 65 % [facility] WBC (Bld) [#/Vol] 16.4 10*3/uL High [facility] Magnesiumon 01-05-2022 Magnesium [Mass/Vol] 1.4 mg/dL Low 1.6-2.6 [facility] Comment on above: Performed By: #### C DP, MELVIN, BMPX, IPF #### [facility] [address] [place], [place] [id number] Soil Checker: Francisco J Fonseca MD Magnesium [Mass/Vol] 1.5 mg/dL Low 1.6-2.6 [facility] Comment on above: Performed By: #### C DP, MELVIN, BMPX, IPF #### [facility] [address] [place], [place] [phone] Soil Checker: Francisco J Fonseca MD No Panel Informationon 01-05 1. No evidence for contrast leakage from the stomach or duodenum following repair of perforated ulcer. 2. Gastroesophageal reflux. [facility] EXAMINATION: SINGLE CONTRAST UPPER GI SERIES 01/05/2022 HISTORY: ORDERING SYSTEM PROVIDED HISTORY: repair perf ulcer TECHNOLOGIST PROVIDED HISTORY: repair perf ulcer COMPARISON: None. TECHNIQUE: Multiple single contrast images of the esophagus, gastroesophageal junction and stomach were obtained following the oral administration of water soluble contrast. FLUOROSCOPY DOSE AND TYPE OR TIME AND EXPOSURES: DAP 16.583Kyqo5 FINDINGS: Contrast was administered through the indwelling NG tube. No extravasation of contrast from the stomach. There is normal filling of stomach and proximal small bowel loops. There was some reflux into the biliary tree. Gastroesophageal reflux is noted. [facility] Howard Aldridge MD - 01/05/2022 EXAMINATION: SINGLE CONTRAST UPPER GI SERIES 01/05/2022 HISTORY: ORDERING SYSTEM PROVIDED HISTORY: repair perf ulcer TECHNOLOGIST PROVIDED HISTORY: repair perf ulcer COMPARISON: None. TECHNIQUE: Multiple single contrast images of the esophagus, gastroesophageal junction and stomach were obtained following the oral administration of water soluble contrast. FLUOROSCOPY DOSE AND TYPE OR TIME AND EXPOSURES: DAP 16.617Vveb4 FINDINGS: Contrast was administered through the indwelling NG tube. No extravasation of contrast from the stomach. There is normal filling of stomach and proximal small bowel loops. There was some reflux into the biliary tree. Gastroesophageal reflux is noted. IMPRESSION: 1. No evidence for contrast leakage from the stomach or duodenum following repair of perforated ulcer. 2. Gastroesophageal reflux. [email or web address] [facility] Work Phone: Radiology Study observation (narrative) [facility] Work Phone: Interpretation and review of laboratory results Abnormal [facility] GFR >60 >60 mL/min [facility] GFR Non- >60 >60 mL/min [facility] Interpretation and review of laboratory results Abnormal [facility] Interpretation and review of laboratory results Abnormal [facility] Interpretation and review of laboratory results Abnormal [facility] Platelet, Fluorescence 250 [facility] Platelet, Immature Fraction 10.5 % High 1.1 - 10.3 % [facility] Absolute Eos # 0.11 [facility] Absolute Immature Granulocyte 0.08 [facility] Absolute Lymph # 0.96 Low [facility] Absolute [place] # 0.97 [facility] Interpretation and review of laboratory results Abnormal [facility] NRBC Automated 0.0 0.0 per 100 WBC [facility] Segs Absolute 14.26 High [facility] Interpretation and review of laboratory results Abnormal [facility] GFR >60 >60 mL/min [facility] GFR Non- >60 >60 mL/min [facility] Interpretation and review of laboratory results Abnormal [facility] No Panel InformationOrdered By: Howard Aldridge on 01-05-2022 [facility] Work Phone: PLT, Immature Fract.on 01-05 Platelet, Fluoresc. 250 k/uL Normal 138-453 [facility] Comment on above: Performed By: #### C DP, MELVIN, BMPX, IPF #### [facility] [place] [address] Soil Checker: Francisco J Fonseca MD PLT, Immature Fract. 10.5 % High 1.1-10.3 [facility] Comment on above: Performed By: #### C DP, MELVIN, BMPX, IPF #### [facility] [address] [place] [address] Soil Checker: Francisco J Fonseca MD Phosphorus, Inorg.on 022 Phosphorus, Inorg. 2.4 mg/dL Low 2.5-4.5 [facility] Comment on above: Performed By: #### C DP, MELVIN, BMPX, IPF #### [facility] [address] [place] [address] Soil Checker: Francisco J Fonseca MD Phosphorus, Inorg. 1.9 mg/dL Low 2.5-4.5 [facility] Comment on above: Performed By: #### C DP, MELVIN, BMPX, IPF #### [facility] [address] [place] [address] Soil Checker: Francisco J Fonseca MD Basic Metab w/rfx MGon 01-04 Potassium [Moles/Vol] 3.4 mmol/L Low 3.7-5.3 [facility] Comment on above: Performed By: #### C DP, MELVIN, BMPX, IPF #### [facility] [address] [place] [address] Soil Checker: Francisco J Fonseca MD (cont.) Normal [facility] Comment on above: Result Comment: Aver age GFR for 70 or more years old: 75 mL/min/1.73sq m Chronic Kidney Disease: <60 mL/min/1.73sq m Kidney failure: <15 mL/min/1.73sq m eGFR calculated using average adult body mass. Additional eGFR calculator available at: http://www.[employer]or[employer].Cloudwords/multiple_crcl_2012.htm Performed By: #### C DP, MELVIN, BMPX, IPF #### [facility] [address] [place] [address] Soil Checker: Francisco J Fonseca MD Anion gap [Moles/Vol] 12 mmol/L Normal 9-17 [facility] Comment on above: Performed By: #### C DP, MELVIN, BMPX, IPF #### [facility] [address] [place] [address] Soil Checker: Francisco J Fonseca MD Calcium [Mass/Vol] 8.1 mg/dL Low 8.6-10.4 [facility] Comment on above: Performed By: #### C DP, MELVIN, BMPX, IPF #### [facility] [address] [place] [address] Soil Checker: Francisco J Fonseca MD Chloride [Moles/Vol] 99 mmol/L Normal 98-107 [facility] Comment on above: Performed By: #### C DP, MELVIN, BMPX, IPF #### [facility] [address] [place] [address] Soil Checker: Francisco J Fonseca MD CO2 [Moles/Vol] 23 mmol/L Normal 20-31 [facility] Comment on above: Performed By: #### C DP, MELVIN, BMPX, IPF #### [facility] [address] [place] [address] Soil Checker: Francisco J Fonseca MD Creatinine [Mass/Vol] 0.61 mg/dL Low 0.70-1.20 [facility] Comment on above: Performed By: #### C DP, MELVIN, BMPX, IPF #### [facility] [address] [place] [address] Soil Checker: Francisco J Fonseca MD GFR, Amer >60 Normal >60 [facility] Comment on above: Performed By: #### C DP, MELVIN, BMPX, IPF #### [facility] [address] [place] [phone] Soil Checker: Francisco J Fonseca MD GFR,non Amer >60 Normal >60 [facility] Comment on above: Performed By: #### C DP, MELVIN, BMPX, IPF #### [address] [address] Soil Checker: Francisco J Fonseca MD Glucose [Mass/Vol] 125 mg/dL High 70-99 [facility] Comment on above: Performed By: #### C DP, MELVIN, BMPX, IPF #### [address] [address] Soil Checker: Francisco J Fonseca MD Sodium [Moles/Vol] 134 mmol/L Low 135-144 [facility] Comment on above: Performed By: #### C DP, MELVIN, BMPX, IPF #### [address] [address] Soil Checker: Francisco J Fonseca MD Urea nitrogen [Mass/Vol] 19 mg/dL Normal 8-23 [facility] Comment on above: Performed By: #### C DP, MELVIN, BMPX, IPF #### [address] [address] Soil Checker: Francisco J Fonseca MD (cont.) [facility] Comment on above: Result Comment: Aver age GFR for 70 or more years old: 75 mL/min/1.73sq m Chronic Kidney Disease: <60 mL/min/1.73sq m Kidney failure: <15 mL/min/1.73sq m eGFR calculated using average adult body mass. Additional eGFR calculator available at: http://www.[employer].com/multiple_crcl_2012.htm Performed By: #### C DP, MELVIN, BMPX, IPF #### [address] [address] Soil Checker: Francisco J Fonseca MD Anion gap [Moles/Vol] 13 mmol/L Normal 9-17 [facility] Comment on above: Performed By: #### C DP, MELVIN, BMPX, IPF #### [facility] [address] [place] [phone] Soil Checker: Francisco J Fonseca MD Calcium [Mass/Vol] 8.4 mg/dL Low 8.6-10.4 [facility] Comment on above: Performed By: #### C DP, MELVIN, BMPX, IPF #### [facility] [address] [place], [place] [id number] Soil Checker: Francisco J Fonseca MD Chloride [Moles/Vol] 101 mmol/L Normal 98-107 [facility] Comment on above: Performed By: #### C DP, MELVIN, BMPX, IPF #### [facility] [address] [place] [address] Soil Checker: Francisco J Fonseca MD CO2 [Moles/Vol] 23 mmol/L Normal 20-31 [facility] Comment on above: Performed By: #### C DP, MELVIN, BMPX, IPF #### [address] [address] Soil Checker: Francisco J Fonseca MD Creatinine [Mass/Vol] 0.73 mg/dL Normal 0.70-1.20 [facility] Comment on above: Performed By: #### C DP, MELVIN, BMPX, IPF #### [address] [address] Soil Checker: Francisco J Fonseca MD GFR, Amer >60 Normal >60 [facility] Comment on above: Performed By: #### C DP, MELVIN, BMPX, IPF #### [facility] [address] [place] [address] Soil Checker: Francisco J Fonseca MD GFR,non Amer >60 Normal >60 [facility] Comment on above: Performed By: #### C DP, MELVIN, BMPX, IPF #### [facility] [address] [place] [address] Soil Checker: Francisco J Fonseca MD Glucose [Mass/Vol] 124 mg/dL High 70-99 [facility] Comment on above: Performed By: #### C DP, MELVIN, BMPX, IPF #### [facility] [address] [place] [address] Soil Checker: Francisco J Fonseca MD Potassium [Moles/Vol] 3.9 mmol/L Normal 3.7-5.3 [facility] Comment on above: Performed By: #### C DP, MELVIN, BMPX, IPF #### [address] [address] Soil Checker: Francisco J Fonseca MD Sodium [Moles/Vol] 137 mmol/L Normal 135-144 [facility] Comment on above: Performed By: #### C DP, MELVIN, BMPX, IPF #### [address] [address] Soil Checker: Francisco J Fonseca MD Urea nitrogen [Mass/Vol] 24 mg/dL High 8-23 [facility] Comment on above: Performed By: #### C DP, MELVIN, BMPX, IPF #### [address] [address] Soil Checker: Francisco J Fonseca MD (cont.) [facility] Comment on above: Result Comment: Aver age GFR for 70 or more years old: 75 mL/min/1.73sq m Chronic Kidney Disease: <60 mL/min/1.73sq m Kidney failure: <15 mL/min/1.73sq m eGFR calculated using average adult body mass. Additional eGFR calculator available at: http://www.Storify.Cloudwords/multiple_crcl_2012.htm Performed By: #### B MPX, MELVIN #### [facility] [address] [place] [address] Soil Checker: Francisco J Fonseca MD Anion gap [Moles/Vol] 12 mmol/L Normal 9-17 [facility] Comment on above: Performed By: #### B MPX, MELVIN #### [facility] [address] [place] [address] Soil Checker: Francisco J Fonseca MD Calcium [Mass/Vol] 8.5 mg/dL Low 8.6-10.4 [facility] Comment on above: Performed By: #### B MPX, MELVIN #### [facility] [address] [place] [address] Soil Checker: Francisco J Fonseca MD Chloride [Moles/Vol] 101 mmol/L Normal 98-107 [facility] Comment on above: Performed By: #### B MPX, MELVIN #### [facility] [address] [place] [address] Soil Checker: Francisco J Fonseca MD CO2 [Moles/Vol] 23 mmol/L Normal 20-31 [facility] Comment on above: Performed By: #### B MPX, MELVIN #### [address] [address] Soil Checker: Francisco J Fonseca MD Creatinine [Mass/Vol] 0.82 mg/dL Normal 0.70-1.20 [facility] Comment on above: Performed By: #### B MPX, MELVIN #### [facility] [address] [place] [address] Soil Checker: Francisco J Fonseca MD GFR, Amer >60 Normal >60 [facility] Comment on above: Performed By: #### B MPX, MELVIN #### [facility] [address] [place] [address] Soil Checker: Francisco J Fonseca MD GFR,non Amer >60 Normal >60 [facility] Comment on above: Performed By: #### B MPX, MELVIN #### [facility] [address] Soil Checker: Francisco J Fonseca MD Glucose [Mass/Vol] 100 mg/dL High 70-99 [facility] Comment on above: Performed By: #### B MPX, MELVIN #### [facility] [address] [place] [address] Soil Checker: Francisco J Fonseca MD Potassium [Moles/Vol] 3.9 mmol/L Normal 3.7-5.3 [facility] Comment on above: Performed By: #### B MPX, MELVIN #### [address] [address] Soil Checker: Francisco J Fonseca MD Sodium [Moles/Vol] 136 mmol/L Normal 135-144 [facility] Comment on above: Performed By: #### B MPX, MELVIN #### [facility] [address] [place] [address] Soil Checker: Francisco J Fonseca MD Urea nitrogen [Mass/Vol] 26 mg/dL High 8-23 [facility] Comment on above: Performed By: #### B MPX, MELVIN #### [address] [address] Soil Checker: Francisco J Fonseca MD (cont.) [facility] Comment on above: Result Comment: Aver age GFR for 70 or more years old: 75 mL/min/1.73sq m Chronic Kidney Disease: <60 mL/min/1.73sq m Kidney failure: <15 mL/min/1.73sq m eGFR calculated using average adult body mass. Additional eGFR calculator available at: http://www.Storify.com/multiple_crcl_2012.htm Performed By: #### C DP #### [address] [address] Soil Checker: Francisco J Fonseca MD Anion gap [Moles/Vol] 11 mmol/L Normal 9-17 [facility] Comment on above: Performed By: #### C DP #### [address] [address] Soil Checker: Francisco J Fonseca MD Calcium [Mass/Vol] 8.3 mg/dL Low 8.6-10.4 [facility] Comment on above: Performed By: #### C DP #### [address] [address] Soil Checker: Francisco J Fonseca MD Chloride [Moles/Vol] 104 mmol/L Normal 98-107 [facility] Comment on above: Performed By: #### C DP #### [address] [address] Soil Checker: Francisco J Fonseca MD CO2 [Moles/Vol] 21 mmol/L Normal 20-31 [facility] Comment on above: Performed By: #### C DP #### [address] [address] Soil Checker: Francisco J Fonseca MD Creatinine [Mass/Vol] 0.83 mg/dL Normal 0.70-1.20 [facility] Comment on above: Performed By: #### C DP #### [address] [address] Soil Checker: Francisco J Fonseca MD GFR, Amer >60 Normal >60 [facility] Comment on above: Performed By: #### C DP #### [facility] [address] [place] [address] Soil Checker: Francisco J Fonseca MD GFR,non Amer >60 Normal >60 [facility] Comment on above: Performed By: #### C DP #### [address] [address] Soil Checker: Francisco J Fonseca MD Glucose [Mass/Vol] 71 mg/dL Normal 70-99 [facility] Comment on above: Performed By: #### C DP #### [address] [address] Soil Checker: Francisco J Fonseca MD Potassium [Moles/Vol] 4.5 mmol/L Normal 3.7-5.3 [facility] Comment on above: Result Comment: SPEC IMEN SLIGHTLY HEMOLYZED, RESULTS MAY BE ADVERSELY AFFECTED. Performed By: #### C DP #### [address] [address] Soil Checker: Francisco J Fonesca MD Sodium [Moles/Vol] 136 mmol/L Normal 135-144 [facility] Comment on above: Performed By: #### C DP #### [address] [address] Soil Checker: Francisco J Fonseca MD Urea nitrogen [Mass/Vol] 29 mg/dL High 8-23 [facility] Comment on above: Performed By: #### C DP #### [place] [address] Soil Checker: Francisco J Fonseca MD CBC with Diffon 01-04-2022 Abs. Basophil 0.04 k/uL Normal 0.00-0.20 [facility] Comment on above: Performed By: #### C DP #### [address] [address] Soil Checker: Francisco J Fonseca MD Abs. Eosinophil <0.03 Normal 0.00-0.44 [facility] Comment on above: Performed By: #### C DP #### [address] [address] Soil Checker: Francisco J Fonseca MD Abs.Imm.Granulocyte 0.20 k/uL Normal 0.00-0.30 [facility] Comment on above: Performed By: #### C DP #### [address] [address] Soil Checker: Francisco J Fonseca MD Abs.Neutrophil (Seg) 18.94 k/uL High 1.50-8.10 [facility] Comment on above: Performed By: #### C DP #### [address] [address] Soil Checker: Francisco J Fonseca MD Basophils/100 WBC (Bld) 0 % Normal 0-2 [facility] Comment on above: Performed By: #### C DP #### [address] [address] Soil Checker: Francisco J Fonseca MD Eosinophils/100 WBC (Bld) 0 % Low 1-4 [facility] Comment on above: Performed By: #### C DP #### [address] [address] Soil Checker: Francisco J Fonseca MD Erythrocyte distribution width (RBC) [Ratio] 19.0 % High 11.8-14.4 [facility] Comment on above: Performed By: #### C DP #### [address] [address] Soil Checker: Francisco J Fonseca MD Hematocrit (Bld) [Volume fraction] 35.1 % Low 40.7-50.3 [facility] Comment on above: Performed By: #### C DP #### [address] [address] Soil Checker: Francisco J Fonseca MD Hemoglobin (Bld) [Mass/Vol] 12.0 g/dL Low 13.0-17.0 [facility] Comment on above: Performed By: #### C DP #### [address] [address] Soil Checker: Francisco J Fonseca MD Immature granulocytes/100 WBC (Bld) 1 % High 0 [facility] Comment on above: Performed By: #### C DP #### [place] [address] Soil Checker: Francisco J Fonseca MD Lymphocytes (Bld) [#/Vol] 0.89 10*3/uL Low 1.10-3.70 [facility] Comment on above: Performed By: #### C DP #### [place] [address] Soil Checker: Francisco J Fonseca MD Lymphocytes/100 WBC (Bld) 4 % Low 24-43 [facility] Comment on above: Performed By: #### C DP #### [place] [address] Soil Checker: Francisco J Fonseca MD MCH (RBC) [Entitic mass] 27.6 pg Normal 25.2-33.5 [facility] Comment on above: Performed By: #### C DP #### [place] [address] Soil Checker: Francisco J Fonseca MD MCHC (RBC) [Mass/Vol] 34.2 g/dL Normal 28.4-34.8 [facility] Comment on above: Performed By: #### C DP #### [place] [address] Soil Checker: Francisco J Fonseca MD MCV (RBC) [Entitic vol] 80.7 fL Low 82.6-102.9 [facility] Comment on above: Performed By: #### C DP #### [place] [address] Soil Checker: Francisco J Fonseca MD Monocytes (Bld) [#/Vol] 1.33 10*3/uL High 0.10-1.20 [facility] Comment on above: Performed By: #### C DP #### [address] [address] Soil Checker: Francisco J Fosneca MD Monocytes/100 WBC (Bld) 6 % Normal 3-12 [facility] Comment on above: Performed By: #### C DP #### [address] [address] Soil Checker: Francisco J Fonseca MD Neutrophil (Seg) 89 % High 36-65 [facility] Comment on above: Performed By: #### C DP #### [address] [address] Soil Checker: Francisco J Fonseca MD NRBC Automated 0.0 per 100 WBC Normal 0.0 [facility] Comment on above: Performed By: #### C DP #### [address] [address] Soil Checker: Francisco J Fonseca MD Platelet mean volume (Bld) [Entitic vol] 12.3 fL Normal 8.1-13.5 [facility] Comment on above: Performed By: #### C DP #### [address] [address] Soil Checker: Francisco J Fonseca MD Platelets (Bld) [#/Vol] 245 10*3/uL Normal 138-453 [facility] Comment on above: Performed By: #### C DP #### [address] [address] Soil Checker: Francisco J Fonseca MD RBC (Bld) [#/Vol] 4.35 10*6/uL Normal 4.21-5.77 [facility] Comment on above: Performed By: #### C DP #### [address] [address] Soil Checker: Francisco J Fonseca MD RBC morphology finding Nom (Bld) ANISOCYTOSIS PRESENT Normal [facility] Comment on above: Result Comment: MICR OCYTOSIS PRESENT Performed By: #### C DP #### [facility] [address] [place], [place] [phone] Soil Checker: Francisco J Fonseca MD WBC (Bld) [#/Vol] 21.4 10*3/uL High 3.5-11.3 [facility] Comment on above: Performed By: #### C DP #### [facility] [address] [place], [place] [phone] Soil Checker: Francisco J Fonseca MD Cult,Urineon 01-04-2022 Cult,Urine Specimen Description .INDWELLING CATH URINE Culture NO GROWTH Report Status FINAL 01/04/2022 Normal [facility] Comment on above: Performed By: #### C DP, MELVIN, BMPX, IPF #### [facility] [address] [place], [place] [phone] Soil Checker: Francisco J Fonseca MD Laboratory - Chemistry and C hemistry - challengeon 01-04-2022 Anion gap [Moles/Vol] 15 mmol/L 9 - 17 mmol/L [facility] [employer] Calcium [Mass/Vol] 8.2 mg/dL Low 8.6 - 10. 4 mg/dL [facility] [employer] Chloride [Moles/Vol] 98 mmol/L 98 - 10 7 mmol/L [facility] [employer] CO2 [Moles/Vol] 23 mmol/L 20 - 31 mmol/L [facility] [employer] Creatinine [Mass/Vol] 0.66 mg/dL Low 0.70 - 1.20 mg/dL [facility] [employer] GFR/1.73 sq M.predicted MDRD (S/P/Bld) [Vol rate/Area] [facility] [employer] Comment on above: Average GFR for 70 o r more years old: 75 mL/min/1.73sq m Chronic Kidney Disease: <60 mL/min/1.73sq m Kidney failure: <15 mL/min/1.73sq m eGFR calculated using average adult body mass. Additional eGFR calculator available at: http://www.Storify.Cloudwords/multiple_crcl_2012.htm Glucose [Mass/Vol] 90 mg/dL 70 - 99 mg/dL [email or web address] [employer] Phosphate [Mass/Vol] 1.9 mg/dL Low 2.5 - 4 .5 mg/dL [facility] Potassium [Moles/Vol] 3.7 mmol/L 3.7 - 5.3 mmol/L [facility] Sodium [Moles/Vol] 136 mmol/L 135 - 144 mmol/L [facility] Urea nitrogen (BldV) [Mass/Vol] 20 mg/dL 8 - 23 mg/dL [facility] Magnesium [Mass/Vol] 1.5 mg/dL Low 1.6 - 2 .6 mg/dL [email or web address] Anion gap [Moles/Vol] 12 mmol/L 9 - 17 mmol/L [facility] [employer] Calcium [Mass/Vol] 8.1 mg/dL Low 8.6 - 10. 4 mg/dL [email or web address] Chloride [Moles/Vol] 99 mmol/L 98 - 10 7 mmol/L [email or web address] CO2 [Moles/Vol] 23 mmol/L 20 - 31 mmol/L [email or web address] Creatinine [Mass/Vol] 0.61 mg/dL Low 0.70 - 1.20 mg/dL [facility] GFR/1.73 sq M.predicted MDRD (S/P/Bld) [Vol rate/Area] [facility] Comment on above: Average GFR for 70 o r more years old: 75 mL/min/1.73sq m Chronic Kidney Disease: <60 mL/min/1.73sq m Kidney failure: <15 mL/min/1.73sq m eGFR calculated using average adult body mass. Additional eGFR calculator available at: http://www.Storify.Cloudwords/multiple_crcl_2012.htm Glucose [Mass/Vol] 125 mg/dL High 70 - 99 mg/dL [facility] Potassium [Moles/Vol] 3.4 mmol/L Low 3.7 - 5.3 mmol/L [facility] Sodium [Moles/Vol] 134 mmol/L Low 135 - 144 mmol/L [facility] Urea nitrogen (BldV) [Mass/Vol] 19 mg/dL 8 - 23 mg/dL [facility] Phosphate [Mass/Vol] 2.2 mg/dL Low 2.5 - 4 .5 mg/dL [facility] Anion gap [Moles/Vol] 13 mmol/L 9 - 17 mmol/L [facility] Calcium [Mass/Vol] 8.4 mg/dL Low 8.6 - 10. 4 mg/dL [facility] Chloride [Moles/Vol] 101 mmol/L 98 - 10 7 mmol/L [facility] CO2 [Moles/Vol] 23 mmol/L 20 - 31 mmol/L [facility] Creatinine [Mass/Vol] 0.73 mg/dL 0.70 - 1.20 mg/dL [facility] GFR/1.73 sq M.predicted MDRD (S/P/Bld) [Vol rate/Area] [facility] Comment on above: Average GFR for 70 o r more years old: 75 mL/min/1.73sq m Chronic Kidney Disease: <60 mL/min/1.73sq m Kidney failure: <15 mL/min/1.73sq m eGFR calculated using average adult body mass. Additional eGFR calculator available at: http://www.[employer]/multiple_crcl_2011.htm Glucose [Mass/Vol] 124 mg/dL High 70 - 99 mg/dL [facility] Phosphate [Mass/Vol] 2.5 mg/dL 2.5 - 4 .5 mg/dL [facility] Potassium [Moles/Vol] 3.9 mmol/L 3.7 - 5.3 mmol/L [facility] Sodium [Moles/Vol] 137 mmol/L 135 - 144 mmol/L [facility] Urea nitrogen (BldV) [Mass/Vol] 24 mg/dL High 8 - 23 mg/dL [facility] Glucose [Mass/Vol] 108 mg/dL 75 - 110 mg/dL [facility] Anion gap [Moles/Vol] 12 mmol/L 9 - 17 mmol/L [facility] Calcium [Mass/Vol] 8.5 mg/dL Low 8.6 - 10. 4 mg/dL [facility] Chloride [Moles/Vol] 101 mmol/L 98 - 10 7 mmol/L [facility] CO2 [Moles/Vol] 23 mmol/L 20 - 31 mmol/L [facility] Creatinine [Mass/Vol] 0.82 mg/dL 0.70 - 1.20 mg/dL [facility] GFR/1.73 sq M.predicted MDRD (S/P/Bld) [Vol rate/Area] [facility] Comment on above: Average GFR for 70 o r more years old: 75 mL/min/1.73sq m Chronic Kidney Disease: <60 mL/min/1.73sq m Kidney failure: <15 mL/min/1.73sq m eGFR calculated using average adult body mass. Additional eGFR calculator available at: http://www.[employer]/multiple_crcl_2012.htm Glucose [Mass/Vol] 100 mg/dL High 70 - 99 mg/dL [facility] Phosphate [Mass/Vol] 2.7 mg/dL 2.5 - 4 .5 mg/dL [facility] Potassium [Moles/Vol] 3.9 mmol/L 3.7 - 5.3 mmol/L [facility] Sodium [Moles/Vol] 136 mmol/L 135 - 144 mmol/L [facility] Urea nitrogen (BldV) [Mass/Vol] 26 mg/dL High 8 - 23 mg/dL [facility] Glucose [Mass/Vol] 81 mg/dL 75 - 110 mg/dL [facility] Anion gap [Moles/Vol] 11 mmol/L 9 - 17 mmol/L [facility] Calcium [Mass/Vol] 8.3 mg/dL Low 8.6 - 10. 4 mg/dL [facility] Chloride [Moles/Vol] 104 mmol/L 98 - 10 7 mmol/L [facility] CO2 [Moles/Vol] 21 mmol/L 20 - 31 mmol/L [facility] Creatinine [Mass/Vol] 0.83 mg/dL 0.70 - 1.20 mg/dL [facility] GFR/1.73 sq M.predicted MDRD (S/P/Bld) [Vol rate/Area] [facility] Comment on above: Average GFR for 70 o r more years old: 75 mL/min/1.73sq m Chronic Kidney Disease: <60 mL/min/1.73sq m Kidney failure: <15 mL/min/1.73sq m eGFR calculated using average adult body mass. Additional eGFR calculator available at: http://www.[employer]/multiple_crcl_2012.htm Glucose [Mass/Vol] 71 mg/dL 70 - 99 mg/dL [facility] Phosphate [Mass/Vol] 3.2 mg/dL 2.5 - 4 .5 mg/dL [facility] Potassium [Moles/Vol] 4.5 mmol/L 3.7 - 5.3 mmol/L [facility] Comment on above: SPECIMEN SLIGHTLY HE MOLYZED, RESULTS MAY BE ADVERSELY AFFECTED. Sodium [Moles/Vol] 136 mmol/L 135 - 144 mmol/L [facility] Urea nitrogen (BldV) [Mass/Vol] 29 mg/dL High 8 - 23 mg/dL [facility] Laboratory - Hematology and Cell countson 01-04-2022 Basophils (Bld) [#/Vol] 0.04 10*3/uL [facility] Basophils/100 WBC (Bld) 0 % 0 - 2 % [facility] Eosinophils/100 WBC (Bld) 0 % Low 1 - 4 % [facility] Hematocrit (Bld) [Volume fraction] 35.1 % Low 40.7 - 50.3 % [facility] Hemoglobin (Bld) [Mass/Vol] 12.0 g/dL Low 13.0 - 17.0 g/dL [facility] Immature granulocytes/100 WBC (Bld) 1 % High 0 [facility] Lymphocytes/100 WBC (Bld) 4 % Low 24 - 43 % [facility] MCH (RBC) [Entitic mass] 27.6 pg 25.2 - 33.5 pg [facility] MCHC (RBC) [Mass/Vol] 34.2 g/dL 28.4 - 34.8 g/dL [facility] MCV (RBC) [Entitic vol] 80.7 fL Low 82.6 - 102.9 fL [facility] Monocytes/100 WBC (Bld) 6 % 3 - 12 % [facility] Platelet distribution width (Bld) [Ratio] 19.0 % High 11.8 - 14.4 % [facility] Platelet mean volume (Bld) [Entitic vol] 12.3 fL 8.1 - 13.5 fL [facility] Platelets (Bld) [#/Vol] 245 10*3/uL [facility] RBC (Bld) [#/Vol] 4.35 10*6/uL 4.21 - 5.77 m/uL [facility] RBC (Bld) [#/Vol] ANISOCYTOSIS PRESENT [facility] Comment on above: MICROCYTOSIS PRESENT Segmented neutrophils/100 WBC (Bld) 89 % High 36 - 65 % [facility] WBC (Bld) [#/Vol] 21.4 10*3/uL High [facility] Laboratory - Microbiology an d Antimicrobial susceptibilityon 01-04-2022 Bacteria identified Cx Nom (U) NO GROWTH [facility] Magnesiumon 01-04-2022 Magnesium [Mass/Vol] 1.5 mg/dL Low 1.6-2.6 [facility] Comment on above: Performed By: #### C DP, MELVIN, BMPX, IPF #### [facility] [address] [place], [place] [phone] Soil Checker: Francisco J Fonseca MD No Panel Informationon 01-04 GFR >60 >60 mL/min [facility] [employer] [facility] GFR Non- >60 >60 mL/min [facility] [employer] [facility] Interpretation and review of laboratory results Abnormal [facility] Interpretation and review [facility] laboratory results Abnormal [facility] GFR >60 >60 mL/min [facility] GFR Non- >60 >60 mL/min [facility] Interpretation and review of laboratory results Abnormal [facility] Interpretation and review of laboratory results Abnormal [facility] GFR >60 [...] Low [facility] Absolute [place] # 1.33 High [facility] [...] 022 Phosphorus, Inorg. 2.2 mg/dL Low 2.5-4.5 [facility] Comment on above: Performed By: #### C DP, MELVIN, BMPX, IPF #### [facility] [address] [place] [address] Soil Checker: Francisco J Fonseca MD Phosphorus, Inorg. 2.5 mg/dL Normal 2.5-4.5 [facility] Comment on above: Performed By: #### C DP, MELVIN, BMPX, IPF #### [facility] [address] [place], [place] [phone] Soil Checker: Francisco J Fonseca MD Phosphorus, Inorg. 2.7 mg/dL Normal 2.5-4.5 [facility] Comment on above: Performed By: #### B MPX, MELVIN #### [address] [address] Soil Checker: Francisco J Fonseca MD Phosphorus, Inorg. 3.2 mg/dL Normal 2.5-4.5 [facility] Comment on above: Performed By: #### C DP #### [place] [address] Soil Checker: Francisco J Fonseca MD Basic Metab w/rfx MGon 01-03 (cont.) Normal [facility] Comment on above: Result Comment: Aver age GFR for 70 or more years old: 75 mL/min/1.73sq m Chronic Kidney Disease: <60 mL/min/1.73sq m Kidney failure: <15 mL/min/1.73sq m eGFR calculated using average adult body mass. Additional eGFR calculator available at: http://www.[employer]/multiple_crcl_2012.htm Performed By: #### C DP, MELVIN, BMPX, IPF #### [place] [address] Soil Checker: Francisco J Fonseca MD Anion gap [Moles/Vol] 12 mmol/L Normal 9-17 [facility] Comment on above: Performed By: #### C DP, MELVIN, BMPX, IPF #### [address] [address] Soil Checker: Francisco J Fonseca MD Calcium [Mass/Vol] 8.3 mg/dL Low 8.6-10.4 [facility] Comment on above: Performed By: #### C DP, MELVIN, BMPX, IPF #### [facility] [address] [place] [id number] Soil Checker: Francisco J Fonseca MD Chloride [Moles/Vol] 102 mmol/L Normal 98-107 [facility] Comment on above: Performed By: #### C DP, MELVIN, BMPX, IPF #### [facility] [address] [place] [id number] Soil Checker: Francisco J Fonseca MD CO2 [Moles/Vol] 21 mmol/L Normal 20-31 [facility] Comment on above: Performed By: #### C DP, MELVIN, BMPX, IPF #### [facility] [address] [place] [id number] Soil Checker: Francisco J Fonseca MD Creatinine [Mass/Vol] 0.88 mg/dL Normal 0.70-1.20 [facility] Comment on above: Performed By: #### C DP, MELVIN, BMPX, IPF #### [facility] [address] [place] [address] Soil Checker: Francisco J Fonseca MD GFR, Amer >60 Normal >60 [facility] Comment on above: Performed By: #### C DP, MELVIN, BMPX, IPF #### [facility] [address] [place] [address] Soil Checker: Francisco J Fonseca MD GFR,non Amer >60 Normal >60 [facility] Comment on above: Performed By: #### C DP, MELVIN, BMPX, IPF #### [facility] [address] [place] [address] Soil Checker: Francisco J Fonseca MD Glucose [Mass/Vol] 74 mg/dL Normal 70-99 [facility] Comment on above: Performed By: #### C DP, MELVIN, BMPX, IPF #### [facility] [address] [place] [address] Soil Checker: Francisco J Fonseca MD Potassium [Moles/Vol] 4.2 mmol/L Normal 3.7-5.3 [facility] Comment on above: Performed By: #### C DP, MELVIN, BMPX, IPF #### [facility] [address] [place] [address] [place] [address] Soil Checker: Francisco J Fonseca MD Sodium [Moles/Vol] 135 mmol/L Normal 135-144 [facility] Comment on above: Performed By: #### C DP, MELVNI, BMPX, IPF #### [address] [address] Soil Checker: Francisco J Fonseca MD Urea nitrogen [Mass/Vol] 29 mg/dL High 8-23 [facility] Comment on above: Performed By: #### C DP, MELVIN, BMPX, IPF #### [address] [address] Soil Checker: Francisco J Fonseca MD (cont.) [facility] Comment on above: Result Comment: Aver age GFR for 70 or more years old: 75 mL/min/1.73sq m Chronic Kidney Disease: <60 mL/min/1.73sq m Kidney failure: <15 mL/min/1.73sq m eGFR calculated using average adult body mass. Additional eGFR calculator available at: http://www.Storify.Cloudwords/multiple_crcl_2012.htm Performed By: #### C DP #### [address] [address] Soil Checker: Francisco J Fonseca MD Anion gap [Moles/Vol] 12 mmol/L Normal 9-17 [facility] Comment on above: Performed By: #### C DP #### [address] [address] Soil Checker: Francisco J Fonseca MD Calcium [Mass/Vol] 8.4 mg/dL Low 8.6-10.4 [facility] Comment on above: Performed By: #### C DP #### [address] [address] Soil Checker: Francisco J Fonseca MD Chloride [Moles/Vol] 103 mmol/L Normal 98-107 [facility] Comment on above: Performed By: #### C DP #### [address] [address] Soil Checker: Francisco J Fonseca MD CO2 [Moles/Vol] 21 mmol/L Normal 20-31 [facility] Comment on above: Performed By: #### C DP #### [address] [address] Soil Checker: Francisco J Fonseca MD Creatinine [Mass/Vol] 0.93 mg/dL Normal 0.70-1.20 [facility] Comment on above: Performed By: #### C DP #### [address] [address] Soil Checker: Francisco J Fonseca MD GFR, Amer >60 Normal >60 [facility] Comment on above: Performed By: #### C DP #### [address] [address] Soil Checker: Francisco J Fonseca MD GFR,non Amer >60 Normal >60 [facility] Comment on above: Performed By: #### C DP #### [address] [address] Soil Checker: Francisco J Fonseca MD Glucose [Mass/Vol] 155 mg/dL High 70-99 [facility] Comment on above: Performed By: #### C DP #### [address] [address] Soil Checker: Francisco J Fonseca MD Potassium [Moles/Vol] 3.9 mmol/L Normal 3.7-5.3 [facility] Comment on above: Performed By: #### C DP #### [address] [address] Soil Checker: Francisco J Fonseca MD Sodium [Moles/Vol] 136 mmol/L Normal 135-144 [facility] Comment on above: Performed By: #### C DP #### [address] [address] Soil Checker: Francisco J Fonseca MD Urea nitrogen [Mass/Vol] 28 mg/dL High 8-23 [facility] Comment on above: Performed By: #### C DP #### [address] [address] Soil Checker: Francisco J Fonseca MD (cont.) Normal [facility] Comment on above: Result Comment: Aver age GFR for 70 or more years old: 75 mL/min/1.73sq m Chronic Kidney Disease: <60 mL/min/1.73sq m Kidney failure: <15 mL/min/1.73sq m eGFR calculated using average adult body mass. Additional eGFR calculator available at: http://www.[employer]/multiple_crcl_2012.htm Performed By: #### C DP, MELVIN, BMPX, IPF #### [facility] [address] [place] [address] Soil Checker: Francisco J Fonseca MD Anion gap [Moles/Vol] 11 mmol/L Normal 9-17 [facility] Comment on above: Performed By: #### C DP, MELVIN, BMPX, IPF #### [facility] [address] [place] [address] Soil Checker: Francisco J Fonseca MD Calcium [Mass/Vol] 8.4 mg/dL Low 8.6-10.4 [facility] Comment on above: Performed By: #### C DP, MELVIN, BMPX, IPF #### [facility] [address] [place] [address] Soil Checker: Francisco J Fonseca MD Chloride [Moles/Vol] 103 mmol/L Normal 98-107 [facility] Comment on above: Performed By: #### C DP, MELVIN, BMPX, IPF #### [facility] [address] [place] [address] Soil Checker: Francisco J Fonseca MD CO2 [Moles/Vol] 24 mmol/L Normal 20-31 [facility] Comment on above: Performed By: #### C DP, MELVIN, BMPX, IPF #### [facility] [address] [place] [address] Soil Checker: Francisco J Fonseca MD Creatinine [Mass/Vol] 0.92 mg/dL Normal 0.70-1.20 [facility] Comment on above: Performed By: #### C DP, MELVIN, BMPX, IPF #### [facility] [address] [place] [address] Soil Checker: Francisco J Fonseca MD GFR, Amer >60 Normal >60 [facility] Comment on above: Performed By: #### C DP, MELVIN, BMPX, IPF #### [facility] [address] [place] [address] Soil Checker: Francisco J Fonseca MD GFR,non Amer >60 Normal >60 [facility] Comment on above: Performed By: #### C DP, MELVIN, BMPX, IPF #### [facility] [address] [place] [address] Soil Checker: Francisco J Fonseca MD Glucose [Mass/Vol] 226 mg/dL High 70-99 [facility] Comment on above: Performed By: #### C DP, MELVIN, BMPX, IPF #### [facility] [address] [place] [address] Soil Checker: Francisco J Fonseca MD Potassium [Moles/Vol] 5.0 mmol/L Normal 3.7-5.3 [facility] Comment on above: Performed By: #### C DP, MELVIN, BMPX, IPF #### [facility] [address] [place] [address] Soil Checker: Francisco J Fonseca MD Sodium [Moles/Vol] 138 mmol/L Normal 135-144 [facility] Comment on above: Performed By: #### C DP, MELVIN, BMPX, IPF #### [facility] [address] [place] [address] Soil Checker: Francisco J Fonseca MD Urea nitrogen [Mass/Vol] 26 mg/dL High 8-23 [facility] Comment on above: Performed By: #### C DP, MELVIN, BMPX, IPF #### [facility] [address] [place] [address] Soil Checker: Francisco J Fonseca MD (cont.) [facility] Comment on above: Result Comment: Aver age GFR for 70 or more years old: 75 mL/min/1.73sq m Chronic Kidney Disease: <60 mL/min/1.73sq m Kidney failure: <15 mL/min/1.73sq m eGFR calculated using average adult body mass. Additional eGFR calculator available at: http://www.Storify.com/multiple_crcl_2012.htm Performed By: #### C DP, MELVIN, BMPX, IPF #### [facility] [address] [place] [address] Soil Checker: Francisco J Fonseca MD Anion gap [Moles/Vol] 13 mmol/L Normal 9-17 [facility] Comment on above: Performed By: #### C DP, MELVIN, BMPX, IPF #### [facility] [address] [place] [address] Soil Checker: Francisco J Fonseca MD Calcium [Mass/Vol] 8.4 mg/dL Low 8.6-10.4 [facility] Comment on above: Performed By: #### C DP, MELVIN, BMPX, IPF #### [facility] [address] [place] [address] Soil Checker: Francisco J Fonseca MD Chloride [Moles/Vol] 104 mmol/L Normal 98-107 [facility] Comment on above: Performed By: #### C DP, MELVIN, BMPX, IPF #### [address] [address] Soil Checker: Francisco J Fonseca MD CO2 [Moles/Vol] 21 mmol/L Normal 20-31 [facility] Comment on above: Performed By: #### C DP, MELVIN, BMPX, IPF #### [address] [address] Soil Checker: Francisco J Fonseca MD Creatinine [Mass/Vol] 0.84 mg/dL Normal 0.70-1.20 [facility] Comment on above: Performed By: #### C DP, MELVIN, BMPX, IPF #### [address] [address] Soil Checker: Francisco J Fonseca MD GFR, Amer >60 Normal >60 [facility] Comment on above: Performed By: #### C DP, MELVIN, BMPX, IPF #### [address] [address] Soil Checker: Francisco J Fonseca MD GFR,non Amer >60 Normal >60 [facility] Comment on above: Performed By: #### C DP, MELVIN, BMPX, IPF #### [address] [address] Soil Checker: Francisco J Fonseca MD Glucose [Mass/Vol] 176 mg/dL High 70-99 [facility] Comment on above: Performed By: #### C DP, MELVIN, BMPX, IPF #### [address] [address] Soil Checker: Francisco J Fonseca MD Potassium [Moles/Vol] 4.5 mmol/L Normal 3.7-5.3 [facility] Comment on above: Performed By: #### C DP, MELVIN, BMPX, IPF #### [facility] [address] [place] [address] Soil Checker: Francisco J Fonseca MD Sodium [Moles/Vol] 138 mmol/L Normal 135-144 [facility] Comment on above: Performed By: #### C DP, MELVIN, BMPX, IPF #### [facility] [address] [place] [address] Soil Checker: Francisco J Fonseca MD Urea nitrogen [Mass/Vol] 21 mg/dL Normal 8-23 [facility] Comment on above: Performed By: #### C DP, MELVIN, BMPX, IPF #### [facility] [address] [place] [address] Soil Checker: Francisco J Fonseca MD (cont.) [facility] Comment on above: Result Comment: Aver age GFR for 70 or more years old: 75 mL/min/1.73sq m Chronic Kidney Disease: <60 mL/min/1.73sq m Kidney failure: <15 mL/min/1.73sq m eGFR calculated using average adult body mass. Additional eGFR calculator available at: http://www.Storify.Cloudwords/multiple_crcl_2011.htm Performed By: #### C DP, MELVIN, BMPX, IPF #### [facility] [address] [place] [address] Soil Checker: Francisco J Fonseca MD Anion gap [Moles/Vol] 6 mmol/L Low 9-17 [facility] Comment on above: Performed By: #### C DP, MELVIN, BMPX, IPF #### [facility] [address] [place] [address] Soil Checker: Francisco J Fonseca MD Calcium [Mass/Vol] 8.5 mg/dL Low 8.6-10.4 [facility] Comment on above: Performed By: #### C DP, MELVIN, BMPX, IPF #### [address] [address] Soil Checker: Francisco J Fonseca MD Chloride [Moles/Vol] 105 mmol/L Normal 98-107 [facility] Comment on above: Performed By: #### C DP, MELVIN, BMPX, IPF #### [address] [address] Soil Checker: Francisco J Fonseca MD CO2 [Moles/Vol] 25 mmol/L Normal 20-31 [facility] Comment on above: Performed By: #### C DP, MELVIN, BMPX, IPF #### [address] [address] Soil Checker: Francisco J Fonseca MD Creatinine [Mass/Vol] 0.75 mg/dL Normal 0.70-1.20 [facility] Comment on above: Performed By: #### C DP, MELVIN, BMPX, IPF #### [address] [address] Soil Checker: Francisco J Fonseca MD GFR, Amer >60 Normal >60 [facility] Comment on above: Performed By: #### C DP, MELVIN, BMPX, IPF #### [facility] [address] [place] [address] Soil Checker: Francisco J Fonseca MD GFR,non Amer >60 Normal >60 [facility] Comment on above: Performed By: #### C DP, MELVIN, BMPX, IPF #### [facility] [address] [place] [address] Soil Checker: Francisco J Fonseca MD Glucose [Mass/Vol] 81 mg/dL Normal 70-99 [facility] Comment on above: Performed By: #### C DP, MELVIN, BMPX, IPF #### [facility] [address] [place] [address] Soil Checker: Francisco J Fonseca MD Potassium [Moles/Vol] 4.6 mmol/L Normal 3.7-5.3 [facility] Comment on above: Performed By: #### C DP, MELVIN, BMPX, IPF #### [address] [address] Soil Checker: Francisco J Fonseca MD Sodium [Moles/Vol] 136 mmol/L Normal 135-144 [facility] Comment on above: Performed By: #### C DP, MELVIN, BMPX, IPF #### [facility] [address] [place] [address] Soil Checker: Francisco J Fonseca MD Urea nitrogen [Mass/Vol] 18 mg/dL Normal 8-23 [facility] Comment on above: Performed By: #### C DP, MELVIN, BMPX, IPF #### [place] [address] Soil Checker: Francisco J Fonseca MD CBC with Diffon 01-03-2022 Abs. Basophil 0.00 k/uL Normal 0.0-0.2 [facility] Comment on above: Performed By: #### C DP #### [place] [address] Soil Checker: Francisco J Fonseca MD Abs.Imm.Granulocyte 0.00 k/uL Normal 0.00-0.30 [facility] Comment on above: Performed By: #### C DP #### [place] [address] Soil Checker: Francisco J Fonseca MD Abs.Neutrophil (Seg) 19.89 k/uL High 1.8-7.7 [facility] Comment on above: Performed By: #### C DP #### [address] [address] Soil Checker: Francisco J Fonseca MD Basophils/100 WBC (Bld) 0 % Normal 0-2 [facility] Comment on above: Performed By: #### C DP #### [address] [address] Soil Checker: Francisco J Fonseca MD Eosinophils (Bld) [#/Vol] 0.00 10*3/uL Normal 0.0-0.4 [facility] Comment on above: Performed By: #### C DP #### [address] [address] Soil Checker: Francisco J Fonseca MD Eosinophils/100 WBC (Bld) 0 % Low 1-4 [facility] Comment on above: Performed By: #### C DP #### [address] [address] Soil Checker: Francisco J Fonseca MD Immature granulocytes/100 WBC (Bld) 0 % Normal 0 [facility] Comment on above: Performed By: #### C DP #### [address] [address] Soil Checker: Francisco J Fonseca MD Lymphocytes (Bld) [#/Vol] 0.88 10*3/uL Low 1.0-4.8 [facility] Comment on above: Performed By: #### C DP #### [address] [address] Soil Checker: Francisco J Fonseca MD Lymphocytes/100 WBC (Bld) 4 % Low 24-44 [facility] Comment on above: Performed By: #### C DP #### [address] [address] Soil Checker: Francisco J Fonseca MD Monocytes (Bld) [#/Vol] 1.33 10*3/uL High 0.1-0.8 [facility] Comment on above: Performed By: #### C DP #### [address] [address] Soil Checker: Francisco J Fonseca MD Monocytes/100 WBC (Bld) 6 % Normal 1-7 [facility] Comment on above: Performed By: #### C DP #### [address] [address] Soil Checker: Francisco J Fonseca MD Morphology Walter (Bld) [Interp] MICROCYTOSIS PRESENT Normal [facility] Comment on above: Result Comment: ANIS OCYTOSIS PRESENT 1+ ACANTHOCYTES Performed By: #### C DP #### [address] [address] Soil Checker: Francisco J Fonseca MD Neutrophil (Seg) 90 % High 36-66 [facility] Comment on above: Performed By: #### C DP #### [address] [address] Soil Checker: Francisco J Fonseca MD Erythrocyte distribution width (RBC) [Ratio] 18.9 % High 11.8-14.4 [facility] Comment on above: Performed By: #### C DP #### [address] [address] Soil Checker: Francisco J Fonseca MD Hematocrit (Bld) [Volume fraction] 37.4 % Low 40.7-50.3 [facility] Comment on above: Performed By: #### C DP #### [address] [address] Soil Checker: Francisco J Fonseca MD Hemoglobin (Bld) [Mass/Vol] 12.2 g/dL Low 13.0-17.0 [facility] Comment on above: Performed By: #### C DP #### [address] [address] Soil Checker: Francisco J Fonseca MD MCH (RBC) [Entitic mass] 26.9 pg Normal 25.2-33.5 [facility] Comment on above: Performed By: #### C DP #### [address] [address] Soil Checker: Francisco J Fonseca MD MCHC (RBC) [Mass/Vol] 32.6 g/dL Normal 28.4-34.8 [facility] Comment on above: Performed By: #### C DP #### [address] [address] Soil Checker: Francisco J Fonseca MD MCV (RBC) [Entitic vol] 82.4 fL Low 82.6-102.9 [facility] Comment on above: Performed By: #### C DP #### [address] [address] Soil Checker: Francisco J Fonseca MD NRBC Automated 0.0 per 100 WBC Normal 0.0 [facility] Comment on above: Performed By: #### C DP #### [address] [address] Soil Checker: Francisco J Fonseca MD Platelet mean volume (Bld) [Entitic vol] 12.6 fL Normal 8.1-13.5 [facility] Comment on above: Performed By: #### C DP #### [address] [address] Soil Checker: Francisco J Fonseca MD Platelets (Bld) [#/Vol] 292 10*3/uL Normal 138-453 [facility] Comment on above: Performed By: #### C DP #### [address] [address] Soil Checker: Francisco J Fonseca MD RBC (Bld) [#/Vol] 4.54 10*6/uL Normal 4.21-5.77 [facility] Comment on above: Performed By: #### C DP #### [address] [phone] Soil Checker: Francisco J Fonseca MD WBC (Bld) [#/Vol] 22.1 10*3/uL High 3.5-11.3 [facility] Comment on above: Performed By: #### C DP #### [facility] [address] [place] [address] Soil Checker: Francisco J Fonseca MD Hemoglobin A1Con 01-03-2022 Glucose [Mass/Vol] 223 mg/dL Normal [facility] Comment on above: Result Comment: The ADA and AACC recommend providing the estimated average glucose result to permit better patient understanding of their HBA1c result. Performed By: #### C DP, MELVIN, BMPX, IPF #### [facility] [place] [address] Soil Checker: Francisco J Fonseca MD HbA1c (Bld) [Mass fraction] 9.4 % High 4.0-6.0 [facility] Comment on above: Performed By: #### C DP, MELVIN, BMPX, IPF #### [facility] [place] [address] Soil Checker: Francisco J Fonseca MD Laboratory - Chemistry and C hemistry - challengeon 01-03-2022 Anion gap [Moles/Vol] 12 mmol/L 9 - 17 mmol/L [facility] [employer] Calcium [Mass/Vol] 8.3 mg/dL Low 8.6 - 10. 4 mg/dL [facility] Chloride [Moles/Vol] 102 mmol/L 98 - 10 7 mmol/L [facility] CO2 [Moles/Vol] 21 mmol/L 20 - 31 mmol/L [facility] Creatinine [Mass/Vol] 0.88 mg/dL 0.70 - 1.20 mg/dL [facility] [employer] GFR/1.73 sq M.predicted MDRD (S/P/Bld) [Vol rate/Area] [facility] Comment on above: Average GFR for 70 o r more years old: 75 mL/min/1.73sq m Chronic Kidney Disease: <60 mL/min/1.73sq m Kidney failure: <15 mL/min/1.73sq m eGFR calculated using average adult body mass. Additional eGFR calculator available at: http://www.[employer]/multiple_crcl_2012.htm Glucose [Mass/Vol] 74 mg/dL 70 - 99 mg/dL [facility] [employer] Phosphate [Mass/Vol] 3.3 mg/dL 2.5 - 4 .5 mg/dL [facility] Potassium [Moles/Vol] 4.2 mmol/L 3.7 - 5.3 mmol/L [facility] Sodium [Moles/Vol] 135 mmol/L 135 - 144 mmol/L [facility] Urea nitrogen (BldV) [Mass/Vol] 29 mg/dL High 8 - 23 mg/dL [facility] Glucose [Mass/Vol] 69 mg/dL Low 75 - 110 mg/dL [facility] Glucose [Mass/Vol] 93 mg/dL 75 - 110 mg/dL [facility] Glucose [Mass/Vol] 55 mg/dL Low 75 - 110 mg/dL [facility] Comment on above: Critical Noted Glucose [Mass/Vol] 88 mg/dL 75 - 110 mg/dL [facility] Anion gap [Moles/Vol] 12 mmol/L 9 - 17 mmol/L [facility] Calcium [Mass/Vol] 8.4 mg/dL Low 8.6 - 10. 4 mg/dL [facility] Chloride [Moles/Vol] 103 mmol/L 98 - 10 7 mmol/L [facility] CO2 [Moles/Vol] 21 mmol/L 20 - 31 mmol/L [facility] Creatinine [Mass/Vol] 0.93 mg/dL 0.70 - 1.20 mg/dL [facility] GFR/1.73 sq M.predicted MDRD (S/P/Bld) [Vol rate/Area] [facility] Comment on above: Average GFR for 70 o r more years old: 75 mL/min/1.73sq m Chronic Kidney Disease: <60 mL/min/1.73sq m Kidney failure: <15 mL/min/1.73sq m eGFR calculated using average adult body mass. Additional eGFR calculator available at: http://www.[employer]/multiple_crcl_2012.htm Glucose [Mass/Vol] 155 mg/dL High 70 - 99 mg/dL [facility] Phosphate [Mass/Vol] 2.9 mg/dL 2.5 - 4 .5 mg/dL [facility] Potassium [Moles/Vol] 3.9 mmol/L 3.7 - 5.3 mmol/L [facility] Sodium [Moles/Vol] 136 mmol/L 135 - 144 mmol/L [facility] Urea nitrogen (BldV) [Mass/Vol] 28 mg/dL High 8 - 23 mg/dL [facility] Glucose [Mass/Vol] 152 mg/dL High 75 - 110 mg/dL [facility] Glucose [Mass/Vol] 216 mg/dL High 75 - 110 mg/dL [facility] Glucose [Mass/Vol] 242 mg/dL High 75 - 110 mg/dL [facility] Glucose [Mass/Vol] 243 mg/dL High 75 - 110 mg/dL [facility] Anion gap [Moles/Vol] 11 mmol/L 9 - 17 mmol/L [facility] Calcium [Mass/Vol] 8.4 mg/dL Low 8.6 - 10. 4 mg/dL [facility] Chloride [Moles/Vol] 103 mmol/L 98 - 10 7 mmol/L [facility] CO2 [Moles/Vol] 24 mmol/L 20 - 31 mmol/L [facility] Creatinine [Mass/Vol] 0.92 mg/dL 0.70 - 1.20 mg/dL [facility] GFR/1.73 sq M.predicted MDRD (S/P/Bld) [Vol rate/Area] [facility] Comment on above: Average GFR for 70 o r more years old: 75 mL/min/1.73sq m Chronic Kidney Disease: <60 mL/min/1.73sq m Kidney failure: <15 mL/min/1.73sq m eGFR calculated using average adult body mass. Additional eGFR calculator available at: http://www.[employer]/multiple_crcl_2012.htm Glucose [Mass/Vol] 226 mg/dL High 70 - 99 mg/dL [facility] Phosphate [Mass/Vol] 3.5 mg/dL 2.5 - 4 .5 mg/dL [facility] Potassium [Moles/Vol] 5.0 mmol/L 3.7 - 5.3 mmol/L [facility] Sodium [Moles/Vol] 138 mmol/L 135 - 144 mmol/L [facility] Urea nitrogen (BldV) [Mass/Vol] 26 mg/dL High 8 - 23 mg/dL [facility] Glucose [Mass/Vol] 214 mg/dL High 75 - 110 mg/dL [facility] Anion gap [Moles/Vol] 13 mmol/L 9 - 17 mmol/L [facility] Calcium [Mass/Vol] 8.4 mg/dL Low 8.6 - 10. 4 mg/dL [facility] Chloride [Moles/Vol] 104 mmol/L 98 - 10 7 mmol/L [facility] CO2 [Moles/Vol] 21 mmol/L 20 - 31 mmol/L [facility] Creatinine [Mass/Vol] 0.84 mg/dL 0.70 - 1.20 mg/dL [facility] GFR/1.73 sq M.predicted MDRD (S/P/Bld) [Vol rate/Area] [facility] Comment on above: Average GFR for 70 o r more years old: 75 mL/min/1.73sq m Chronic Kidney Disease: <60 mL/min/1.73sq m Kidney failure: <15 mL/min/1.73sq m eGFR calculated using average adult body mass. Additional eGFR calculator available at: http://www.[employer].com.Cloudwords/multiple_crcl_2012.htm Glucose [Mass/Vol] 176 mg/dL High 70 - 99 mg/dL [email or web address] [employer] Phosphate [Mass/Vol] 3.1 mg/dL 2.5 - 4 .5 mg/dL [facility] Potassium [Moles/Vol] 4.5 mmol/L 3.7 - 5.3 mmol/L [facility] Sodium [Moles/Vol] 138 mmol/L 135 - 144 mmol/L [facility] Urea nitrogen (BldV) [Mass/Vol] 21 mg/dL 8 - 23 mg/dL [facility] Glucose [Mass/Vol] 126 mg/dL High 75 - 110 mg/dL [facility] Glucose [Mass/Vol] 165 mg/dL High 75 - 110 mg/dL [facility] Glucose [Mass/Vol] 142 mg/dL High 75 - 110 mg/dL [facility] Glucose [Mass/Vol] 89 mg/dL 75 - 110 mg/dL [facility] Glucose [Mass/Vol] 71 mg/dL Low 75 - 110 mg/dL [facility] Glucose [Mass/Vol] 82 mg/dL 75 - 110 mg/dL [facility] Glucose [Mass/Vol] 128 mg/dL High 75 - 110 mg/dL [facility] Anion gap [Moles/Vol] 6 mmol/L Low 9 - 17 mmol/L [facility] Calcium [Mass/Vol] 8.5 mg/dL Low 8.6 - 10. 4 mg/dL [facility] Chloride [Moles/Vol] 105 mmol/L 98 - 10 7 mmol/L [facility] CO2 [Moles/Vol] 25 mmol/L 20 - 31 mmol/L [facility] Creatinine [Mass/Vol] 0.75 mg/dL 0.70 - 1.20 mg/dL [facility] GFR/1.73 sq M.predicted MDRD (S/P/Bld) [Vol rate/Area] [facility] Comment on above: Average GFR for 70 o r more years old: 75 mL/min/1.73sq m Chronic Kidney Disease: <60 mL/min/1.73sq m Kidney failure: <15 mL/min/1.73sq m eGFR calculated using average adult body mass. Additional eGFR calculator available at: http://www.Storify.Cloudwords/multiple_crcl_2012.htm Glucose [Mass/Vol] 81 mg/dL 70 - 99 mg/dL [facility] Phosphate [Mass/Vol] 2.5 mg/dL 2.5 - 4 .5 mg/dL [facility] Potassium [Moles/Vol] 4.6 mmol/L 3.7 - 5.3 mmol/L [facility] Sodium [Moles/Vol] 136 mmol/L 135 - 144 mmol/L [facility] Urea nitrogen (BldV) [Mass/Vol] 18 mg/dL 8 - 23 mg/dL [facility] Glucose [Mass/Vol] 187 mg/dL High 75 - 110 mg/dL [facility] Laboratory - Hematology and Cell countson 01-03-2022 Basophils (Bld) [#/Vol] 0.00 10*3/uL [facility] Basophils/100 WBC (Bld) 0 % 0 - 2 % [facility] Eosinophils/100 WBC (Bld) 0 % Low 1 - 4 % [facility] Hematocrit (Bld) [Volume fraction] 37.4 % Low 40.7 - 50.3 % [facility] Hemoglobin (Bld) [Mass/Vol] 12.2 g/dL Low 13.0 - 17.0 g/dL [facility] Immature granulocytes/100 WBC (Bld) 0 % 0 [facility] Lymphocytes/100 WBC (Bld) 4 % Low 24 - 44 % [facility] MCH (RBC) [Entitic mass] 26.9 pg 25.2 - 33.5 pg [facility] MCHC (RBC) [Mass/Vol] 32.6 g/dL 28.4 - 34.8 g/dL [facility] MCV (RBC) [Entitic vol] 82.4 fL Low 82.6 - 102.9 fL [facility] Monocytes/100 WBC (Bld) 6 % 1 - 7 % [facility] Morphology Walter (Bld) [Interp] MICROCYTOSIS PRESENT [facility] Morphology Walter (Bld) [Interp] ANISOCYTOSIS PRESENT [facility] Morphology Walter (Bld) [Interp] 1+ ACANTHOCYTES [facility] Platelet distribution width (Bld) [Ratio] 18.9 % High 11.8 - 14.4 % [facility] Platelet mean volume (Bld) [Entitic vol] 12.6 fL 8.1 - 13.5 fL [facility] Platelets (Bld) [#/Vol] 292 10*3/uL [facility] RBC (Bld) [#/Vol] 4.54 10*6/uL 4.21 - 5.77 m/uL [facility] Segmented neutrophils/100 WBC (Bld) 90 % High 36 - 66 % [facility] WBC (Bld) [#/Vol] 22.1 10*3/uL High [facility] No Panel Informationon 01-03 GFR >60 [...] Low [facility] Absolute [place] # 1.33 High [facility] [...] 022 Phosphorus, Inorg. 3.3 mg/dL Normal 2.5-4.5 [facility] Comment on above: Performed By: #### C DP, MELVIN, BMPX, IPF #### [facility] [address] [place] [address] Soil Checker: Francisco J Fonseca MD Phosphorus, Inorg. 2.9 mg/dL Normal 2.5-4.5 [facility] Comment on above: Performed By: #### C DP #### [facility] [address] [place] [address] Soil Checker: Francisco J Fonseca MD Phosphorus, Inorg. 3.5 mg/dL Normal 2.5-4.5 [facility] Comment on above: Performed By: #### C DP, MELVIN, BMPX, IPF #### [facility] [address] [place] [address] Soil Checker: Francisco J Fonseca MD Phosphorus, Inorg. 3.1 mg/dL Normal 2.5-4.5 [facility] Comment on above: Performed By: #### C DP, MELVIN, BMPX, IPF #### [facility] [address] [place], [place] [id number] Soil Checker: Francisco J Fonseca MD Phosphorus, Inorg. 2.5 mg/dL Normal 2.5-4.5 [facility] Comment on above: Performed By: #### C DP, MELVIN, BMPX, IPF #### [facility] [address] [place], [place] [id number] Soil Checker: Francisco J Fonseca MD XR ABDOMEN FOR [...] Eulogio Winslow MD 01/02/22 Final result Normal [facility] AMYLASEon 01-02-2022 Amylase [Catalytic activity/Vol] 13 U/L Critically low 25-115 [facility] Comment on above: Performed By: #### L IPA, MARGA, LIVER, BMP #### [facility] [address] [place], [place] [address] Dr. Kylee Bunch Basic Metabolic Profon 01-02 Glucose [Mass/Vol] 452 mg/dL Critically high 70-99 [facility] Comment on above: Performed By: #### C DP #### [facility] [address] [place], [place] [phone] Soil Checker: Francisco J Fonseca MD (cont.) Normal [facility] Comment on above: Result Comment: Aver age GFR for 70 or more years old: 75 mL/min/1.73sq m Chronic Kidney Disease: <60 mL/min/1.73sq m Kidney failure: <15 mL/min/1.73sq m eGFR calculated using average adult body mass. Additional eGFR calculator available at: http://www.Storify.Cloudwords/multiple_crcl_2012.htm Performed By: #### C DP #### [address] [address] Soil Checker: Francisco J Fonseca MD Anion gap [Moles/Vol] 12 mmol/L Normal 9-17 [facility] Comment on above: Performed By: #### C DP #### [address] [address] Soil Checker: Francisco J Fonseca MD Calcium [Mass/Vol] 8.6 mg/dL Normal 8.6-10.4 [facility] Comment on above: Performed By: #### C DP #### [address] [address] Soil Checker: Francisco J Fonseca MD Chloride [Moles/Vol] 96 mmol/L Low 98-107 [facility] Comment on above: Performed By: #### C DP #### [address] [address] Soil Checker: Francisco J Fonseca MD CO2 [Moles/Vol] 22 mmol/L Normal 20-31 [facility] Comment on above: Performed By: #### C DP #### [address] [address] Soil Checker: Francisco J Fonseca MD Creatinine [Mass/Vol] 0.81 mg/dL Normal 0.70-1.20 [facility] Comment on above: Performed By: #### C DP #### [address] [address] Soil Checker: Francisco J Fonseca MD GFR, Amer >60 Normal >60 [facility] Comment on above: Performed By: #### C DP #### [address] [address] Soil Checker: Francisco J Fonseca MD GFR,non Amer >60 Normal >60 [facility] Comment on above: Performed By: #### C DP #### [address] [address] Soil Checker: Francisco J Fonseca MD Potassium [Moles/Vol] 4.1 mmol/L Normal 3.7-5.3 [facility] Comment on above: Performed By: #### C DP #### [address] [address] Soil Checker: Francisco J Fonseca MD Sodium [Moles/Vol] 130 mmol/L Low 135-144 [facility] Comment on above: Performed By: #### C DP #### [address] [address] Soil Checker: Francisco J Fonseca MD Urea nitrogen [Mass/Vol] 19 mg/dL Normal 8-23 [facility] Comment on above: Performed By: #### C DP #### [address] [address] Soil Checker: Francisco J Fonseca MD CBC AUTO DIFFon 01-02-2022 BASO # 0.0 103/ul Normal 0.0-0.1 [facility] Comment on above: Performed By: #### C MP, LIPID #### [facility] [address] [address] [address] Kylee Bunch Basophils/100 WBC (Bld) 0.2 % Normal 0.2-2.0 [facility] Comment on above: Performed By: #### C MP, LIPID #### [facility] [address] [address] [address] Kylee Bunch EO # 0.1 103/ul Normal 0.0-0.7 [facility] Comment on above: Performed By: #### C MP, LIPID #### [facility] [address] [place] [address] Dr. Kylee Bunch Eosinophils/100 WBC (Bld) 0.5 % Critically low 0.9-7.0 [facility] Comment on above: Performed By: #### C MP, LIPID #### [facility] [address] [place] [address] Dr. Kylee Bunch Erythrocyte distribution width (RBC) [Ratio] 18.5 % Critically high 11.0-15.0 [facility] Comment on above: Performed By: #### C MP, LIPID #### [facility] [address] [place] [address] Dr. Kylee Bunch Hematocrit (Bld) [Volume fraction] 37.0 % Critically low 42.0-54.0 [facility] Comment on above: Performed By: #### C MP, LIPID #### [facility] [address] [place] [address] Dr. Kylee Bunch Hemoglobin (Bld) [Mass/Vol] 12.6 g/dL Critically low 14.0-18.0 [facility] Comment on above: Performed By: #### C MP, LIPID #### [facility] [address] [place] [address] Dr. Kylee Bunch IG # 0.02 10e3/ul Normal 0.00-0.03 [facility] Comment on above: Performed By: #### C MP, LIPID #### [facility] [address] [place] [address] Dr. Kylee Bunch IG % 0.2 % Normal 0.0-0.5 [facility] Comment on above: Performed By: #### C MP, LIPID #### [facility] [address] [place] [address] Dr. Kylee Bunch LYMPH # 1.2 103/ul Normal 1.2-3.8 [facility] Comment on above: Performed By: #### C MP, LIPID #### [facility] [address] [place] [address] Dr. Kylee Bunch Lymphocytes/100 WBC (Bld) 11.3 % Critically low 20.5-60.0 [facility] Comment on above: Performed By: #### C MP, LIPID #### [facility] [address] [place] [address] Dr. Kylee Bunch MANUAL DIFF REQ NO Normal [facility] Comment on above: Performed By: #### C MP, LIPID #### [facility] [address] [place] [address] Dr. Kylee Bunch MCH (RBC) [Entitic mass] 27.1 pg Normal 25.9-34.0 [facility] Comment on above: Performed By: #### C MP, LIPID #### [facility] [address] [place] [address] Dr. Kylee Bunch MCHC (RBC) [Mass/Vol] 34.1 g/dL Normal 29.9-35.2 [facility] Comment on above: Performed By: #### C MP, LIPID #### [facility] [address] [place] [address] Dr. Kylee Bunch MCV (RBC) [Entitic vol] 79.6 fL Critically low 80.0-94.0 [facility] Comment on above: Performed By: #### C MP, LIPID #### [facility] [address] [place] [address] Dr. Kylee Bunch MONO # 0.5 103/ul Normal 0.3-0.8 [facility] Comment on above: Performed By: #### C MP, LIPID #### [facility] [address] [place] [address] Dr. Kylee Bunch Monocytes/100 WBC (Bld) 4.5 % Normal 1.7-12.0 [facility] Comment on above: Performed By: #### C MP, LIPID #### [facility] [address] [place] [address] Dr. Kylee Bunch NEUT # 8.5 103/ul Critically high 1.4-6.5 [facility] Comment on above: Performed By: #### C MP, LIPID #### [facility] [address] [place] [address] Dr. Kylee Bunch Neutrophils/100 WBC (Bld) 83.3 % Critically high 43.0-75.0 [facility] Comment on above: Performed By: #### C MP, LIPID #### [facility] [address] [address] [address] Kylee Bunch Platelet mean volume (Bld) [Entitic vol] 12.6 fL Normal 9.5-13.5 [facility] Comment on above: Performed By: #### C MP, LIPID #### [facility] [address] [place] [address] [address] Kylee Bunch PLT 335 103/ul Normal 150-450 [facility] Comment on above: Performed By: #### C MP, LIPID #### [facility] [address] [place] [address] [address] Kylee Bunch RBC 4.65 106/ul Critically low 4.70-6.10 [facility] Comment on above: Performed By: #### C MP, LIPID #### [facility] [address] [place] [address] [address] Kylee Bunch WBC 10.2 103/ul Normal 4.0-11.0 [facility] Comment on above: Performed By: #### C MP, LIPID #### [facility] [address] [place] [address] [address] Kylee Bunch CBC with Diffon 01-02-2022 Abs. Basophil 0.00 k/uL Normal 0.00-0.20 [facility] Comment on above: Performed By: #### C DP, MELVIN, BMPX, IPF #### [facility] [place], [place] [phone] Soil Checker: Francisco J Fonseca MD Abs.Imm.Granulocyte 0.00 k/uL Normal 0.00-0.30 [facility] Comment on above: Performed By: #### C DP, MELVIN, BMPX, IPF #### [facility] [address] [place] [address] Soil Checker: Francisco J Fonseca MD Abs.Neutrophil (Seg) 19.47 k/uL High 1.50-8.10 [facility] Comment on above: Performed By: #### C DP, MELVIN, BMPX, IPF #### [address] [address] Soil Checker: Francisco J Fonseca MD Basophils/100 WBC (Bld) 0 % Normal 0-2 [facility] Comment on above: Performed By: #### C DP, MELVIN, BMPX, IPF #### [place] [address] Soil Checker: Francisco J Fonseca MD Eosinophils (Bld) [#/Vol] 0.00 10*3/uL Normal 0.00-0.44 [facility] Comment on above: Performed By: #### C DP, MELVIN, BMPX, IPF #### [place] [address] Soil Checker: Francisco J Fonseca MD Eosinophils/100 WBC (Bld) 0 % Low 1-4 [facility] Comment on above: Performed By: #### C DP, MELVIN, BMPX, IPF #### [place] [address] Soil Checker: Francisco J Fonseca MD Immature granulocytes/100 WBC (Bld) 0 % Normal 0 [facility] Comment on above: Performed By: #### C DP, MELVIN, BMPX, IPF #### [place] [address] Soil Checker: Francisco J Fonseca MD Lymphocytes (Bld) [#/Vol] 0.41 10*3/uL Low 1.10-3.70 [facility] Comment on above: Performed By: #### C DP, MELVIN, BMPX, IPF #### [address] [address] Soil Checker: Francisco J Fonseca MD Lymphocytes/100 WBC (Bld) 2 % Low 24-43 [facility] Comment on above: Performed By: #### C DP, MELVIN, BMPX, IPF #### [address] [address] Soil Checker: Francisco J Fonseca MD Monocytes (Bld) [#/Vol] 0.62 10*3/uL Normal 0.10-1.20 [facility] Comment on above: Performed By: #### C DP, MELVIN, BMPX, IPF #### [address] [address] Soil Checker: Francisco J Fonseca MD Monocytes/100 WBC (Bld) 3 % Normal 3-12 [facility] Comment on above: Performed By: #### C DP, MELVIN, BMPX, IPF #### [place] [address] Soil Checker: Francisco J Fonseca MD Morphology Walter (Bld) [Interp] ANISOCYTOSIS PRESENT Normal [facility] Comment on above: Performed By: #### C DP, MELVIN, BMPX, IPF #### [address] [address] Soil Checker: Francisco J Fonseca MD Neutrophil (Seg) 95 % High 36-65 [facility] Comment on above: Performed By: #### C DP, MELVIN, BMPX, IPF #### [address] [address] Soil Checker: Francisco J Fonseca MD Erythrocyte distribution width (RBC) [Ratio] 18.3 % High 11.8-14.4 [facility] Comment on above: Performed By: #### C DP, MELVIN, BMPX, IPF #### [address] [address] Soil Checker: Francisco J Fonseca MD Hematocrit (Bld) [Volume fraction] 38.9 % Low 40.7-50.3 [facility] Comment on above: Performed By: #### C DP, MELVIN, BMPX, IPF #### [address] [address] Soil Checker: Francisco J Fonseca MD Hemoglobin (Bld) [Mass/Vol] 12.9 g/dL Low 13.0-17.0 [facility] Comment on above: Performed By: #### C DP, MELVIN, BMPX, IPF #### [address] [address] Soil Checker: Francisco J Fonseca MD MCH (RBC) [Entitic mass] 26.9 pg Normal 25.2-33.5 [facility] Comment on above: Performed By: #### C DP, MELVIN, BMPX, IPF #### [address] [address] Soil Checker: Francisco J Fonseca MD MCHC (RBC) [Mass/Vol] 33.2 g/dL Normal 28.4-34.8 [facility] Comment on above: Performed By: #### C DP, MELVIN, BMPX, IPF #### [place] [address] Soil Checker: Francisco J Fonseca MD MCV (RBC) [Entitic vol] 81.2 fL Low 82.6-102.9 [facility] Comment on above: Performed By: #### C DP, MELVIN, BMPX, IPF #### [address] [address] Soil Checker: Francisco J Fonseca MD NRBC Automated 0.0 per 100 WBC Normal 0.0 [facility] Comment on above: Performed By: #### C DP, MELVIN, BMPX, IPF #### [facility] [address] [place] [address] Soil Checker: Francisco J Fonseca MD Platelet mean volume (Bld) [Entitic vol] 12.4 fL Normal 8.1-13.5 [facility] Comment on above: Performed By: #### C DP, MELVIN, BMPX, IPF #### [facility] [address] [place] [address] Soil Checker: Francisco J Fonseca MD Platelets (Bld) [#/Vol] 324 10*3/uL Normal 138-453 [facility] Comment on above: Performed By: #### C DP, MELVIN, BMPX, IPF #### [facility] [address] [place] [address] Soil Checker: Francisco J Fonseca MD RBC (Bld) [#/Vol] 4.79 10*6/uL Normal 4.21-5.77 [facility] Comment on above: Performed By: #### C DP, MELVIN, BMPX, IPF #### [facility] [address] [place] [address] Soil Checker: Francisco J Fonseca MD WBC (Bld) [#/Vol] 20.5 10*3/uL High 3.5-11.3 [facility] Comment on above: Performed By: #### C DP, MELVIN, BMPX, IPF #### [facility] [address] [place] [address] Soil Checker: Francisco J Fonseca MD CT ABD/PELV W [...] identified. Background diffuse body wall edema with [id number] volume of abdominal and pelvic ascites noted. [...] ROLA HOLCOMB Date: 2022-01-02 09:27 Normal [facility]11 SARS-CoV-2 (COVID-19) RNA ANASTASIA+probe Ql (Unsp spec) Not detected Normal NOT DETECTED [facility] Comment on above: Result Comment: When [...] for this test is supported by the Tank Operator of Health and Human Service's declaration that [...] used). Performed By: #### C VDTB #### [facility] [address] [address] [address] Kylee Bunch ER URINE PROFILEon 2 Bilirubin Ql (U) Negative Normal NEGATIVE [facility] Comment on above: Performed By: #### C MP, LIPID #### [facility] [address] [place] [address] Dr. Kylee Bunch Clarity (U) CLEAR Normal CLEAR [facility] Comment on above: Performed By: #### C MP, LIPID #### [facility] [address] [place] [address] Dr. Kylee Bunch Color (U) LT. YELLOW Normal YELLOW [facility] Comment on above: Performed By: #### C MP, LIPID #### [facility] [address] [place] [address] Dr. Kylee Bunch ERUAHD A micrscopic examina tion will be performed if indicated. Normal [facility] Comment on above: Performed By: #### C MP, LIPID #### [facility] [address] [place] [address] Dr. Kylee Bunch Hemoglobin Ql (U) TRACE-INTACT Abnormal NEGATIVE [facility] Comment on above: Performed By: #### C MP, LIPID #### [facility] [address] [place] [address] Dr. Kylee Bunch Ketones Ql (U) 15 mg/dl Abnormal NEGATIVE [facility] Comment on above: Performed By: #### C MP, LIPID #### [facility] [address] [place] [address] Dr. Kylee Bunch LEUKOCYTES Negative Normal NEGATIVE [facility] Comment on above: Performed By: #### C MP, LIPID #### [facility] [address] [place] [address] Dr. Kylee Bunch Nitrite Ql (U) Negative Normal NEGATIVE [facility] Comment on above: Performed By: #### C MP, LIPID #### [facility] [address] [place] [address] Dr. Kylee Bunch pH (U) 5.5 [pH] Normal 5-9 [facility] Comment on above: Performed By: #### C MP, LIPID #### [facility] [address] [place] [address] Dr. Kylee Bunch SPEC GRAVITY 1.015 Normal 1.005-<=1. 025 [facility] Comment on above: Performed By: #### C MP, LIPID #### [facility] [address] [place] [address] Dr. Kylee Bunch UA PROTEIN Negative Normal NEGATIVE/ TRACE [facility] Comment on above: Performed By: #### C MP, LIPID #### [facility] [address] [place] [address] Dr. Kylee Bunch UR MICRO IND INDICATED Normal [facility] Comment on above: Performed By: #### C MP, LIPID #### [facility] [address] [place] [address] Dr. Kylee Bunch Urobilinogen Qn (U) 0.2 {Gemini'U}/dL Normal 0.2 - 1. 0 [facility] Comment on above: Performed By: #### C MP, LIPID #### [facility] [address] [place] [address] Dr. Kylee Bunch LIPASEon 01-02-2022 Lipase [Catalytic activity/Vol] 9.0 U/L Critically low 73.0-393.0 [facility] Comment on above: Performed By: #### L IPA, MARGA, LIVER, BMP #### [facility] [address] [place] [address] Dr. Kylee Bunch LIVER PROFILEon 01-02-2022 Albumin [Mass/Vol] 3.3 g/dL Critically low 3.4-5.0 [facility] Comment on above: Performed By: #### L IPA, MARGA, LIVER, BMP #### [facility] [address] [place] [address] Dr. Kylee Bunch Albumin/Globulin [Mass ratio] 0.9 {ratio} Normal [facility] Comment on above: Performed By: #### L IPA, MARGA, LIVER, BMP #### [facility] [address] [place] [address] Dr. Kylee Bunch ALP [Catalytic activity/Vol] 116 U/L Normal 46-116 [facility] Comment on above: Performed By: #### L IPA, MARGA, LIVER, BMP #### [facility] [address] [place] [address] Dr. Kylee Bunch ALT [Catalytic activity/Vol] 21 U/L Normal 16-63 [facility] Comment on above: Performed By: #### L IPA, MARGA, LIVER, BMP #### [facility] [address] [address] [address] Kylee Bunch AST [Catalytic activity/Vol] 24 U/L Normal 15-37 [facility] Comment on above: Performed By: #### L IPA, MARGA, LIVER, BMP #### [facility] [address] [place] [address] Dr. Kylee Bunch BILI, CONJUGATED 0.1 mg/dL Normal 0.0-0.2 [facility] Comment on above: Performed By: #### L IPA, MARGA, LIVER, BMP #### [facility] [address] [place] [address] Dr. Kylee Bunch Bilirubin [Mass/Vol] 0.6 mg/dL Normal 0.2-1.0 [facility] Comment on above: Performed By: #### L IPA, MARGA, LIVER, BMP #### [facility] [address] [place] [address] Dr. Kylee Bunch Globulin (S) [Mass/Vol] 3.6 g/dL Normal [facility] Comment on above: Performed By: #### L IPA, MARGA, LIVER, BMP #### [facility] [address] [place] [address] Dr. Kylee Bunch Protein [Mass/Vol] 6.9 g/dL Normal 6.4-8.2 [facility] Comment on above: Performed By: #### L IPA, MARGA, LIVER, BMP #### [facility] [address] [place] [address] Dr. Kylee Bunch Laboratory - Chemistry and C hemistry - challengeon 01-02-2022 Glucose [Mass/Vol] 223 mg/dL [facility] Comment on above: The ADA and AACC rec ommend providing the estimated average glucose result to permit better patient understanding of their HBA1c result. Glucose [Mass/Vol] 227 mg/dL High 75 - 110 mg/dL [facility] Glucose [Mass/Vol] 290 mg/dL High 75 - 110 mg/dL [facility] Glucose [Mass/Vol] 300 mg/dL High 75 - 110 mg/dL [facility] Glucose [Mass/Vol] 323 mg/dL High 75 - 110 mg/dL [facility] Anion gap [Moles/Vol] 12 mmol/L 9 - 17 mmol/L [facility] Calcium [Mass/Vol] 8.6 mg/dL 8.6 - 10. 4 mg/dL [facility] Chloride [Moles/Vol] 96 mmol/L Low 98 - 10 7 mmol/L [facility] CO2 [Moles/Vol] 22 mmol/L 20 - 31 mmol/L [facility] Creatinine [Mass/Vol] 0.81 mg/dL 0.70 - 1.20 mg/dL [facility] GFR/1.73 sq M.predicted MDRD (S/P/Bld) [Vol rate/Area] [facility] Comment on above: Average GFR for 70 o r more years old: 75 mL/min/1.73sq m Chronic Kidney Disease: <60 mL/min/1.73sq m Kidney failure: <15 mL/min/1.73sq m eGFR calculated using average adult body mass. Additional eGFR calculator available at: http://www.[employer]/multiple_crcl_2011.htm Glucose [Mass/Vol] 452 mg/dL Critically high 70 - 9 9 mg/dL [facility] Potassium [Moles/Vol] 4.1 mmol/L 3.7 - 5.3 mmol/L [facility] Sodium [Moles/Vol] 130 mmol/L Low 135 - 144 mmol/L [facility] Urea nitrogen (BldV) [Mass/Vol] 19 mg/dL 8 - 23 mg/dL [facility] Albumin [Mass/Vol] 3.6 g/dL 3.5 - 5.2 g/dL [facility] Albumin/Globulin [Mass ratio] 1.3 {ratio} [facility] ALP (Bld) [Catalytic activity/Vol] 100 U/L 40 - 129 U/L [facility] ALT [Catalytic activity/Vol] 15 U/L 5 - 41 U/L [facility] AST [Catalytic activity/Vol] 18 U/L <40 [facility] Bilirubin [Mass/Vol] 0.45 mg/dL 0.3 - 1 .2 mg/dL [facility] Bilirubin.indirect [Mass/Vol] 0.17 mg/dL <0.31 [facility] Free PSA/Total PSA [Mass fraction] 6.4 g/dL 6.4 - 8.3 g/dL [facility] Glucose [Mass/Vol] 433 mg/dL Critically high 75 - 1 10 mg/dL [facility] Comment on above: Critical Noted Laboratory - Coagulationon 0 01-02-2022 INR Coag (Bld) [Relative time] 1.2 {INR} [facility] Comment on above: Therapeutic Range: Moderate Anticoagulant Intensity: INR = 2.0-3.0 High Anticoagulant Intensity: INR = 2.5-3.5 PT Coag (PPP) [Time] 12.5 s High [facility] Laboratory - Hematology and Cell countson 01-02-2022 HbA1c (Bld) [Mass fraction] 9.4 % High 4.0 - 6.0 % [facility] Basophils (Bld) [#/Vol] 0.00 10*3/uL [facility] Basophils/100 WBC (Bld) 0 % 0 - 2 % [facility] Eosinophils/100 WBC (Bld) 0 % Low 1 - 4 % [facility] Hematocrit (Bld) [Volume fraction] 38.9 % Low 40.7 - 50.3 % [facility] Hemoglobin (Bld) [Mass/Vol] 12.9 g/dL Low 13.0 - 17.0 g/dL [facility] Immature granulocytes/100 WBC (Bld) 0 % 0 [facility] Lymphocytes/100 WBC (Bld) 2 % Low 24 - 43 % [facility] MCH (RBC) [Entitic mass] 26.9 pg 25.2 - 33.5 pg [facility] MCHC (RBC) [Mass/Vol] 33.2 g/dL 28.4 - 34.8 g/dL [facility] MCV (RBC) [Entitic vol] 81.2 fL Low 82.6 - 102.9 fL [facility] Monocytes/100 WBC (Bld) 3 % 3 - 12 % [facility] [employer] Walter (Bld) [Interp] ANISOCYTOSIS PRESENT [facility] Platelet distribution width (Bld) [Ratio] 18.3 % High 11.8 - 14.4 % [facility] Platelet mean volume (Bld) [Entitic vol] 12.4 fL 8.1 - 13.5 fL [facility] Platelets (Bld) [#/Vol] 324 10*3/uL [facility] RBC (Bld) [#/Vol] 4.79 10*6/uL 4.21 - 5.77 m/uL [facility] Segmented neutrophils/100 WBC (Bld) 95 % High 36 - 65 % [facility] WBC (Bld) [#/Vol] 20.5 10*3/uL High [facility] Lactate, Sepsison 01-02-2022 Lactic Acid,Sep Wbld 1.7 mmol/L Normal 0.5-1.9 [facility] Comment on above: Performed By: #### C DP, MELVIN, BMPX, IPF #### [facility] [address] [place] [address] Soil Checker: Francisco J Fonseca MD Liver Profileon 01-02-2022 Albumin [Mass/Vol] 3.6 g/dL Normal 3.5-5.2 [facility] Comment on above: Performed By: #### C DP #### [facility] [address] [place] [address] Soil Checker: Francisco J Fonseca MD Albumin/Glob Ratio 1.3 Normal 1.0-2.5 [facility] Comment on above: Performed By: #### C DP #### [facility] [address] [place] [address] [phone] Soil Checker: Francisco J Fonseca MD Alkaline Phos 100 U/L Normal 40-129 [facility] Comment on above: Performed By: #### C DP #### [facility] [address] [place] [address] Soil Checker: Francisco J Fonseca MD ALT [Catalytic activity/Vol] 15 U/L Normal 5-41 [facility] Comment on above: Performed By: #### C DP #### [address] [address] Soil Checker: Francisco J Fonseca MD AST [Catalytic activity/Vol] 18 U/L Normal <40 [facility] Comment on above: Performed By: #### C DP #### [address] [address] Soil Checker: Francisco J Fonseca MD Bilirubin [Mass/Vol] 0.45 mg/dL Normal 0.3-1.2 [facility] Comment on above: Performed By: #### C DP #### [address] [address] Soil Checker: Francisco J Fonseca MD Bilirubin, Indirect 0.28 mg/dL Normal 0.00-1.00 [facility] Comment on above: Performed By: #### C DP #### [address] [address] Soil Checker: Francisco J Fonseca MD Bilirubin.indirect [Mass/Vol] 0.17 mg/dL Normal <0.31 [facility] Comment on above: Performed By: #### C DP #### [address] [address] Soil Checker: Francisco J Fonseca MD Protein [Mass/Vol] 6.4 g/dL Normal 6.4-8.3 [facility] Comment on above: Performed By: #### C DP #### [address] [address] Soil Checker: Francisco J Fonseca MD No Panel Informationon 01-02 Interpretation and review of laboratory results Abnormal [facility] Interpretation and review of laboratory results Abnormal [facility] Enteric tube needs t o be advanced 10 cm. [facility] RIS CONSOLIDATED EXAMINATION: ONE SUPINE XRAY [...] to be advanced at least 10 cm. [facility] RIS CONSOL[facility] Eulogio Winslow MD - [...] needs to be advanced 10 cm. [facility] Work Phone: Interpretation and review of laboratory results Abnormal [facility] Interpretation and review of laboratory results Abnormal [facility] Radiology Study observation (narrative) [facility] Work Phone: Absolute Eos # 0.00 [facility] Absolute Immature Granulocyte 0.00 [facility] Absolute Lymph # 0.41 Low [facility] Absolute Flathead # 0.62 [facility] Interpretation and review of laboratory results Abnormal [facility] NRBC Automated 0.0 0.0 per 100 WBC [facility] Segs Absolute 19.47 High [facility] Interpretation and review of laboratory results Abnormal [facility] Interpretation and review of laboratory results Abnormal [facility] Lactic Acid, Sepsis, Whole Blood 1.7 mmol/L 0.5 - 1.9 mmol/L [facility] GFR >60 >60 mL/min [facility] GFR Non- >60 >60 mL/min [facility] Interpretation and review of laboratory results Abnormal [facility] Bilirubin, Indirect 0.28 mg/dL 0.00 - 1.00 mg/dL [facility] Interpretation and review of laboratory results Abnormal [facility] No Panel InformationOrdered By: Eulogio Winslow on 01-02-2022 [facility] Work Phone: POINT OF CARE GLUCOSEon 12-11 Glucose [Mass/Vol] 408 mg/dL Critically high 74-106 [facility] Comment on above: Performed By: #### P OCGLUC #### [facility] [address] [place] [address] Dr. Kylee Bunch PROF CHEM 8 (BAS METB)on Anion gap [Moles/Vol] 16.4 mmol/L Normal [facility] Comment on above: Performed By: #### L IPA, MARGA, LIVER, BMP #### [facility] [address] [address] [address] Kylee Bunch Calcium [Mass/Vol] 8.8 mg/dL Normal 8.5-10.1 [facility] Comment on above: Performed By: #### L IPA, MARGA, LIVER, BMP #### [facility] [address] [address] [address] Kylee Bunch Chloride [Moles/Vol] 96 mmol/L Critically low 98-107 [facility] Comment on above: Performed By: #### L IPA, MARGA, LIVER, BMP #### [facility] [address] [address] [address] Kylee Bunch CO2 [Moles/Vol] 25.1 mmol/L Normal 21.0-32.0 [facility] Comment on above: Performed By: #### L IPA, MARGA, LIVER, BMP #### [facility] [address] [address] [address] Kylee Bunch Creatinine [Mass/Vol] 1.22 mg/dL Normal 0.70-1.30 [facility] Comment on above: Performed By: #### L IPA, MARGA, LIVER, BMP #### [facility] [address] [address] [address] Kylee Bunch EGFR-AF MALAGASY >60 Normal >=60 [facility] Comment on above: Performed By: #### L IPA, MARGA, LIVER, BMP #### [facility] [address] [place] [address] Dr. Kylee Bunch EGFR-NON AF MALAGASY 57 mL/min/1.73m2 Critically low >=60 [facility] Comment on above: Performed By: #### L IPA, MARGA, LIVER, BMP #### [facility] [address] [address] [address] Kylee Bunch Glucose [Mass/Vol] 579 mg/dL Critically high 74-106 [facility] Comment on above: Result Comment: repe ated Performed By: #### L IPA, MARGA, LIVER, BMP #### [facility] [address] [address] [address] Kylee Bunch Potassium [Moles/Vol] 4.5 mmol/L Normal 3.5-5.1 [facility] Comment on above: Performed By: #### L IPA, MARGA, LIVER, BMP #### [facility] [address] [address] [address] Kylee Bunch Sodium [Moles/Vol] 133 mmol/L Critically low 136-145 [facility] Comment on above: Performed By: #### L IPA, MARGA, LIVER, BMP #### [facility] [address] [address] [address] Kylee Bunch Urea nitrogen [Mass/Vol] 19.0 mg/dL Critically high 7.0-18.0 [facility] Comment on above: Performed By: #### L IPA, MARGA, LIVER, BMP #### [facility] [address] [address] [address] Kylee Bunch Urea nitrogen/Creatinine [Mass ratio] 15.6 mg/mg Normal [facility] Comment on above: Performed By: #### L IPA, MARGA, LIVER, BMP #### [facility] [address] [address] [address] Kylee Bunch PTon 01-02-2022 INR Coag (PPP) [Relative time] 1.2 {INR} Normal [facility] Comment on above: Result Comment: Therapeutic Range: Moderate Anticoagulant Intensity: INR = 2.0-3.0 High Anticoagulant Intensity: INR = 2.5-3.5 Performed By: #### C DP, MELVIN, BMPX, IPF #### [address] [phone] Soil Checker: Francisco J Fonseca MD PT Coag (PPP) [Time] 12.5 s High 9.1-12.3 [facility] Comment on above: Performed By: #### C DP, MELVIN, BMPX, IPF #### [address] [phone] Soil Checker: Francisco J Fonseca MD URINE MICROSCOPIC ONLYon BACTERIA NONE SEEN Normal NONE SEEN [facility] Comment on above: Performed By: #### C MP, LIPID #### [facility] [address] [place] [address] Dr. Kylee Bunch Bacteria identified Cx Nom (U) NOT INDICATED Normal [facility] Comment on above: Performed By: #### C MP, LIPID #### [facility] [address] [place] [address] Dr. Kylee Bunch CAST NONE SEEN Normal NONE SEEN [facility] Comment on above: Performed By: #### C MP, LIPID #### [facility] [address] [place] [address] Dr. Kylee Bunch Crystals LM Nom (Urine sed) NONE SEEN Normal NONE SEEN [facility] Comment on above: Performed By: #### C MP, LIPID #### [facility] [address] [address] [address] Kylee Bunch Epithelial cells LM Ql (Urine sed) RARE Normal NONE SEEN /RARE [facility] Comment on above: Performed By: #### C MP, LIPID #### [facility] [address] [address] [address] Kylee Bunch MUCOUS NONE SEEN Normal NONE SEEN [facility] Comment on above: Performed By: #### C MP, LIPID #### [facility] [address] [address] [address] Kylee Bunch RBC 0-2 Normal 0-2 [facility] Comment on above: Performed By: #### C MP, LIPID #### [facility] [address] [address] [address] Kylee Bunch WBC NONE SEEN Normal NONE SEEN [facility] Comment on above: Performed By: #### C MP, LIPID #### [facility] [address] [address] [address] Kylee Bunch Reminderson 06-21-2019 Reminders - [...] going to have another colonoscopy mlc Normal [facility] HOSPon 06-23-2018 HOSP Patient Update (GENSMN) ASHWINI VICKERS ([id number]) 1935 MDate Time Provider Ptpeqacjox99/13/18 MARIE JULIAN During your visit today, we recorded the following information about you:Allergies As of Date: 06/23/2018(No Known Allergies)Date Reviewed: 06/14/2018Reviewed by: Marie Julian - Fully AssessedReason for Visit: CURE 08/08/18 [Other]Primary Visit Diagnosis:Preoperative examination [Z01.818]Order(s):CONSULT TO [facility] [[id number]] Order #: [id number]: 1 TYPE + SCREEN,30 DAY [TSERFO61] Order #: [id number] FUTURE CONFIRM BLOOD TYPE [SQCONABO] Order #: [id number] FUTURE CBC + DIFF [SQCBCDIF] Order #: [id number] FUTURE COMP METABOLIC PANEL [SQCMP] Order #: [id number] FUTURE XR CHEST 2V FRONTAL/LAT [8766333] Order #: [id number] FUTURE ECG COMPLETE W INTERPRETATION [ECG01] Order #: [id number] FUTURE REFER FOR ADMIT INTERVIEW [7137179] Order #: [id number] CONSULT TO GERIATRICS [9012] Order #: [id number]: 1 CONSULT TO PATIENT EDUCATION [[id number]] Order #: [id number]: 1 NITISH WHAT TO EXPECT DURING YOUR HOSPITAL STAY [0144452] Order #: [id number]: 1 NITISH PT ED GENERAL SURG [7960979] Order #: [id number]: 1 NITISH PT ED MISC [3592143] Order #: [id number]: 1 SURGICAL REQUEST - ELECTIVE [3365414] Order #: [id number]: 1Prescriptions as of 06/23/2018 Sig: ASPIRIN 81 MG TABLET,DELAYED * Take 81 mg by mouth once parul* CETIRIZINE 10 MG TABLET Take 10 mg by mouth once parul* CHOLECALCIFEROL (VITAMIN D3) * Take 2,000 Units by mouth onc* CENTRUM SILVER ORAL Take by mouth once daily. PROBIOTIC-10 ORAL Take by mouth once daily. FSKVPW-VANLPLHA-DSFSMRU 24,00* Take 2 capsules by mouth thre* LUTEIN-ZEAXANTHIN 25 MG-5 MG * Take by mouth once daily.Problem List As Of Date 06/23/2018 Noted Resolved IPMN (intraductal papillary mucinous neoplasm) *INVALID FOR* More...Follow-up and Disposition History RecordedEncounter Number: [id number] Status:Closed by BREANA FANG on 06/23/18 Normal [facility] CNOVon 06-14-2018 CNOV Office Visit (GENBERNARD) ASHWIN[facility] VICKERS ([id number]) 1935 [facility] Mrfgavdfpt22/4/18 9:30 AM MARIE JULIAN During your visit today, we recorded the following information about you: Temperature Pulse Blood pressure Weight 98.4 degrees 53/minute 182/84 70 kg Height 1.778 mMisty Jumana Margo 06/14/2018 9:25 AM SignedWhat is the reason for your visit today? CONSULTWho is your referring physician? Dr. Castro.MarieAre you having poor oral intake? NOHave you had unintentional weight loss of 15 lbs/7 Kg in the last 3-6 months? NOBowels: regularWound: clean AND dryTemperature: NoDrains: Steven Montes 06/14/2018 1:32 [address]Pancreatic Cyst HANDP [facility] Centerarmin [id number]/06/1935Thi s consult was requested by Marie Castro, for evaluation ofpancreatic cyst(s) My final recommendations will be communicated to thereroosevelt general hospitaling health care provider by way of the shared medical record or [facility].HPIAshwini Vickers is a 83 year old [...] cells. Paucicellular specimen.Serum LabsNo results found for: CQEAA97-6 (U/mL)Date Value04/19/2018 61 No results found for: [...] blood work results in detail with Ashwini Ferrerisaak and therecommendation to proceed with a whipple [...] he would like [place] surgical[place] in [place]. We have provided [facility] the [facility] and recommend that the procedure should be [...] all of their questionsSIGNATURE:Andrei Julian MDHPB surgeryPager: [phone]: Referring Provider: MARIE CASTRO [[id number]]Allergies As of Date: 06/14/2018(No Known Allergies)Date Reviewed: 06/14/2018Reviewed by: Marie Julian - Fully AssessedPrimary Visit Diagnosis:IPMN (intraductal papillary mucinous neoplasm) [D49.0]Prescriptions as of 06/14/2018 Sig: VYLHIK-CFXQVGTJ-VSXGFZR 24,00* Take 2 capsules by mouth thre* [...] regularWound: clean AND dryTemperature: NoDrains: NoEncounter Number: [id number] Status:Closed by MARIE JULIAN MD on 06/14/18 Normal [facility] HISTORY PHYSICALon 8 HISTORY PHYSICAL HNO ID: [id number] thor: Marie Morris: (none)Author Type: PhysicianType: HANDPFiled: [...] answering all of their questionsSIGNATURE:PAM [place] surgeryPager: [phone]: Normal [facility] HISTORY PHYSICAL HNO ID: [id number] thor: Josie Castellon (Res) GamaleldinService: (none)Author Type: ResidentType: HANDPFiled: 06/14/2018 1:32 PMNote Text:Pancreatic Cyst HANDP InitialSaeliezer [id number] s consult was requested by Marie Castro, for evaluation ofpancreatic cyst(s) My final recommendations will be communicated to [facility] health care provider by way of [...] cells. Paucicellular specimen.Serum LabsNo results found for: MMUTJ25-7 (U/mL)Date Value04/19/2018 61 No results found for: [...] would like to pursue surgical intervention in [place].We have provided him with the name of an HPB surgeon at [facility] that the procedure should be done by an HPB surgeon. Seen with Josie Méndez MD10:21 AM06/14/2018 Normal [facility] ANES Wilma 04-27-2018 ANES POST HNO ID: [id number] thor: Guille Manning: (none)Author Type: AnesthesiologistType: Anesthesia [...] 27, 2018 : 9:48 AM PAGER/CONTACT #: [phone] Normal [facility] Amylase,Body Fluidon 018 Amylase,Body Fluid 90741 U/L Critically abnormal See Comment [facility] Comment on above: Result Comment: (NOT E)PLEURAL [...] CLSI document C49-A. BRAD Alarcon: Clinical LaboratoryStandards [place]; 2007.3. Denice CAI, Chantale REAL, Tyson DJ. Use of cyst fluid CEA,CA19-9, and amylase for evaluation of pancreatic lesions. ClinicalBiochemistry. 2009;42:2625-4206.This test was developed and its performance characteristicsdetermined by [facility]'s [facility] ([facility]).It has not been cleared or approved by the FDA. [facility] is regulatedunder [facility] as qualified to perform high-complexity testing.This test is used for clinical purposes. It should not be regarded asinvestigational or for research. Performed By: #### P T, CBCDIF, HFP, TSH, CA199 ####[id number] [place], [place] [phone] Fluid Type Fluid-other Normal [facility] Comment on above: Result Comment: PANC REATIC CYST FLUID Performed By: #### P T, CBCDIF, HFP, TSH, CA199 ####[facility] [place], [place] [phone] CEA, Fluidon 04-27-2018 CEA, Fluid 24.7 ng/mL Normal [facility] Comment on above: Result Comment: (NOT E)INTERPRETIVE INFORMATION: Carcinoembryonic Antigen, FluidThe Jacques CEA electrochemiluminescent immunoassay was used.Results obtained with different assay methods or kits cannot beused interchangeably. The CEA assay value, regardless of level,should not be interpreted as evidence for the presence or absenceof malignant disease.For information on body fluid reference ranges and/or interpretiveguidance visit http://[employer]/bodyfluids/Test developed and characteristics determined by [facility]. See Compliance Statement B: [employer]/CSPerformed by [employer],[address] [place] [address] yxg.[employer], Oswaldo Tellez MD, Lab. Director Performed By: #### P T, CBCDIF, HFP, TSH, CA199 ####[facility] [address] [phone] Source, Fluid Fluid-other Normal [facility] Comment on above: Result Comment: PANC REATIC CYST FLUID Performed By: #### P T, CBCDIF, HFP, TSH, CA199 ####[facility] [place], [place] [phone] Glucose, Body Fluidon 2017 Glucose, Body Fluid <2 Critically abnormal See Comment [facility] Comment on above: Result Comment: Resu lt rechecked. Performed By: #### P T, CBCDIF, HFP, TSH, CA199 ####[address] [address] [address] [phone] CA 19-9on 04-19-2018 CA 19-9 61 U/mL High <36 [facility] Comment on above: Result Comment: Test analyzed by the [employer] DxI method. Performed By: #### P T, CBCDIF, HFP, TSH, CA199 ####[facility] [phone] CBC and Differentialon 04-19 Abs Baso <0.03 Normal <0.11 [facility] Comment on above: Performed By: #### P T, CBCDIF, HFP, TSH, CA199 ####[address] [address] [address] [place], [place] [phone] Abs Flathead 0.52 k/uL Normal <0.87 [facility] Comment on above: Performed By: #### P T, CBCDIF, HFP, TSH, CA199 ####[facility] [place], [place] [phone] Abs Neut 3.73 k/uL Normal 1.45-7.50 [facility] Comment on above: Performed By: #### P T, CBCDIF, HFP, TSH, CA199 ####[address] [address] [address] [place], [place] [phone] Absolute nRBC <0.01 Normal <0.01 [facility] Comment on above: Performed By: #### P T, CBCDIF, HFP, TSH, CA199 ####[facility] [phone] Basophils/100 WBC Auto (Bld) 0.3 % Normal [facility] Comment on above: Performed By: #### P T, CBCDIF, HFP, TSH, CA199 ####[facility] [phone] DTYPE Auto Diff Normal [facility] Comment on above: Performed By: #### P T, CBCDIF, HFP, TSH, CA199 ####[address] [address] [address] [phone] Eosinophils Auto #/vol (Bld) 0.09 10*3/uL Normal <0.46 [facility] Comment on above: Performed By: #### P T, CBCDIF, HFP, TSH, CA199 ####[facility] [phone] Eosinophils/100 WBC Auto (Bld) 1.5 % Normal [facility] Comment on above: Performed By: #### P T, CBCDIF, HFP, TSH, CA199 ####[facility] [phone] Erythrocyte distribution width Auto Ratio (RBC) 15.0 % Normal 11.5-15.0 [facility] Comment on above: Performed By: #### P T, CBCDIF, HFP, TSH, CA199 ####[facility], [place] [phone] Hematocrit Auto Volume Fraction (Bld) 44.6 % Normal 39.0-51.0 [facility] [place] Comment on above: Performed By: #### P T, CBCDIF, HFP, TSH, CA199 ####[facility] [place] [phone] Hemoglobin mass conc (Bld) 13.7 g/dL Normal 13.0-17.0 [facility] Comment on above: Performed By: #### P T, CBCDIF, HFP, TSH, CA199 ####[place] [address], [place] [phone] Lymphocytes Auto #/vol (Bld) 1.79 10*3/uL Normal 1.00-4.00 [facility] Comment on above: Performed By: #### P T, CBCDIF, HFP, TSH, CA199 ####[place] [address], [place] [phone] Lymphocytes/100 WBC Auto (Bld) 29.0 % Normal [facility] Comment on above: Performed By: #### P T, CBCDIF, HFP, TSH, CA199 ####[address], [place] [phone] MCH Auto Entitic mass (RBC) 26.7 pG Normal 26.0-34.0 [facility] Comment on above: Performed By: #### P T, CBCDIF, HFP, TSH, CA199 ####[place] [address], [place] [phone] MCHC Auto mass conc (RBC) 30.7 g/dL Normal 30.5-36.0 [facility] Comment on above: Performed By: #### P T, CBCDIF, HFP, TSH, CA199 ####[place] [address] [place], [place] [phone] MCV Auto Entitic volume (RBC) 86.8 fL Normal 80.0-100.0 [facility] Comment on above: Performed By: #### P T, CBCDIF, HFP, TSH, CA199 ####[facility], [place] [phone] Monocytes/100 WBC Auto (Bld) 8.4 % Normal [facility] Comment on above: Performed By: #### P T, CBCDIF, HFP, TSH, CA199 ####[facility], [place] [phone] Neutrophils/100 WBC Auto (Bld) 60.8 % Normal [facility] Comment on above: Performed By: #### P T, CBCDIF, HFP, TSH, CA199 ####[facility], [place] [phone] NRBCs 0.0 /100 WBC Normal 0 [facility] Comment on above: Performed By: #### P T, CBCDIF, HFP, TSH, CA199 ####[place] [address], [place] [phone] Platelet mean volume Auto Entitic volume (Bld) 10.6 fL Normal 9.0-12.7 [facility] Comment on above: Performed By: #### P T, CBCDIF, HFP, TSH, CA199 ####[place] [address], [place] [phone] Platelets Auto #/vol (Bld) 130 10*3/uL Low 150-400 [facility] Comment on above: Result Comment: Resu lt checked and verifiedNo clot detected. Performed By: #### P T, CBCDIF, HFP, TSH, CA199 ####[place] [address], [place] [phone] RBC Auto #/vol (Bld) 5.14 10*6/uL Normal 4.20-6.00 [facility] Comment on above: Performed By: #### P T, CBCDIF, HFP, TSH, CA199 ####[facility], [place] [phone] WBC Auto #/vol (Bld) 6.17 10*3/uL Normal 3.70-11.00 [facility] Comment on above: Performed By: #### P T, CBCDIF, HFP, TSH, CA199 ####[facility] [place], [place] [phone] CNOVon 04-19-2018 CNOV Office Visit (GASTMN) ASHWINI VICKERS ([id number]) 1935 MDate Time Provider Tbrxnfawhi26/9/18 7:40 AM MARINO CASTILLO GASTMN During your visit today, we recorded the following information about you: Temperature Pulse Blood pressure Weight 97.7 degrees 44/minute 150/68 65.7 kg Height 1.803 mTalva Castillo MD 04/19/2018 10:06 AM SignedNew Patient/ConsultREASON FOR VISITSamclive Vickers is a 83 year old male who is scheduled for a consult at [facility] of Marie Castro MD.PCPRobert Tru Castro MD.[address] [place] [id number] COMPLAINTReferral for Pancreatic Cancer screeningWeight lossMy final [...] familyagreeable with this plan. Questions answered.Marino Castillo MDUp Health Systemober 201710:36 AMMarino Castillo MD 04/19/2018 8:32 AM SignedExpect a call to schedule your endoscopy appointment today or tomorrow morning.If you haven't heard, call me. 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 My office number is [phone] Number: [id number] Status:Closed by MARINO CASTILLO MD on 04/19/18 [facility] 04-19-2018 HOSP Patient:Julio Vickers lMRN: Height:5' [...] 39.0Progress Notes (KIMBERLEE MAIN A30):Lana Dill LPN, JACINTA 04/19/2018 12:24 PM Signed----- Message from Marino Castillo sent at 04/19/2018 10:03 AM EDT -----Ange,Can you please call him and let him know the disc was received? No need to getanother copy from [employer].Thanks,Rl Bonilla, JACINTA, [employer]ER [employer] SUPERVISOR 04/19/2018 12:26 PM SignedCalled pt to let him know the cd was received and no need to get a copy.Progress Notes (KIMBERLEE MAIN A30):Marino Castillo MD 04/19/2018 10:06 AM SignedNew Patient/ConsultREASON FOR VISITSkary Vickers is a 83 year old male who is scheduled for a consult at [facility] of Marie Castro MD.PCPRobert Tru Castro MD.[address] [facility] COMPLAINTReferral for Pancreatic Cancer screeningWeight lossMy [...] familyagreeable with this plan. Questions answered.Marino Castillo MDMymichigan Medical Center [facility] 201710:36 AMPrevious VersionMarino Castillo MD 04/19/2018 8:32 AM SignedExpect a call to schedule your endoscopy appointment today or tomorrow morning.If you haven't heard, call me. My office number is [phone] Normal [facility] Hepatic Functn Panelon 04-19 Albumin mass conc 4.3 g/dL Normal 3.9-4.9 [facility] Comment on above: Performed By: #### P T, CBCDIF, HFP, TSH, CA199 ####[facility] [address] [place], [place] [phone] ALP enzyme act/vol 83 U/L Normal 38-113 [facility] Comment on above: Performed By: #### P T, CBCDIF, HFP, TSH, CA199 ####[facility] [address] AveCGreenback[place], [place] [phone] ALT enzyme act/vol 12 U/L Normal 10-54 [facility] Comment on above: Performed By: #### P T, CBCDIF, HFP, TSH, CA199 ####[facility] [address]lo[address] AveCGreenback[place], [place] [phone] AST enzyme act/vol 18 U/L Normal 14-40 [facility] Comment on above: Performed By: #### P T, CBCDIF, HFP, TSH, CA199 ####[facility] [address] AveCGreenback[place], [place] [phone] Bilirubin mass conc 0.3 mg/dL Normal 0.2-1.3 [facility] Comment on above: Performed By: #### P T, CBCDIF, HFP, TSH, CA199 ####[place] [address] [place], [place] [phone] Bilirubin,Conjugated <0.2 Normal <0.2 [facility] Comment on above: Performed By: #### P T, CBCDIF, HFP, TSH, CA199 ####[place] [address] [place], [place] [phone] Protein mass conc 6.9 g/dL Normal 6.3-8.0 [facility] Comment on above: Performed By: #### P T, CBCDIF, HFP, TSH, CA199 ####[place] [address] [place], [place] [phone] Protimeon 04-19-2018 INR Coag RelTime (Bld) 1.0 {INR} Normal 0.9-1.3 [facility] Comment on above: Result Comment: Robina min K Antagonist (VKA) Therapeutic Range: INR 2 to 3 (Target INR of 2.5)Note: For patients treated with VKA drugs, such as warfarin, the [employer] [employer] 2012 Guideline recommends [...] of 2.5 to 3.5 (target INR of 3).Aridane GH, et al. Chest 2012, 141:7S-47SJames PRINCE, et al. [facility] 2017, 70: 252-289 Performed By: #### P T, CBCDIF, HFP, TSH, CA199 ####[place] [address] [place], [place] [phone] PT Sec 10.9 sec Normal 9.7-13.0 [facility] Comment on above: Performed By: #### P T, CBCDIF, HFP, TSH, CA199 ####[facility] [place], [place] [phone] TSHon 04-19-2018 Thyrotropin Qn 0.874 uU/mL Normal 0.400-5.50 0 [facility] Comment on above: Performed By: #### P T, CBCDIF, HFP, TSH, CA199 ####[place] [address] [place], [place] [phone] PROGRESSon 04-11-2018 Protein mass conc HNO ID: [id number] thor: Marino Cummings: (none)Author Type: PhysicianType: Progress NotesFiled: 04/19/2018 10:06 AMNote Text:New Patient/ConsultREASON FOR VISITSkary Vickers is a 83 year old male who is scheduled for a consult at [facility] of Marie Castro MD.PCPRobert Tru Castro MD.[facility] [address] COMPLAINTReferral for Pancreatic Cancer screeningWeight lossMy final recommendations will be communicated back to the requestingphysician by the way of the shared medical record, fax, or via US Mail.HISTORY OF PRESENT ILLNESSThis patient has presented with several months of unexplained weight lxaq48-72 pounds. There are no gastrointestinal symptoms to [...] plan. Questionsanswered.Marino Castillo MDOctober 201710:36 AM Normal [facility] CT OUTSIDE CD DICOM IMPORT - NBNRon 03-29-2018 CT OUTSIDE CD DICOM IMPORT -NBNR Images were obtained outside of [facility] [id number] Normal [facility] CT-CT abdomen pelvis wo/w co n IMPORTon 03-29-2018 CT-CT abdomen pelvis wo/w con IMPORT Images were obtained outside of [facility] [id number] Normal [facility] Vital Signs Date Time Vital Sign Value Performing Clinician Facility 08-16-2023 14:07-0500 Body height 177.8 cm Sammy AYALA Work Phone: [facility] 08-16-2023 14:07-0500 Body mass index (BMI) [Ratio] 20.09 kg/m2 Sammy Wolff APRN-DOZER OPERATOR Work Phone: [facility] 08-16-2023 14:07-0500 Body weight 63.5 kg Sammy Wolff CERTIFIED INDUSTRIAL HYGIENIST-DOZER OPERATOR Work Phone: [facility] 08-16-2023 14:07-0500 Diastolic blood pressure 80 mm[Hg] Sammy Wolff CERTIFIED INDUSTRIAL HYGIENIST-DOZER OPERATOR Work Phone: [facility] 08-16-2023 14:07-0500 Heart rate 72 /min Sammy Wolff CERTIFIED INDUSTRIAL HYGIENIST-DOZER OPERATOR Work Phone: [facility] 08-16-2023 14:07-0500 Systolic blood pressure 134 mm[Hg] Sammy Wolff CERTIFIED INDUSTRIAL HYGIENIST-DOZER OPERATOR Work Phone: [facility] 07-16-2023 22:45-0500 Diastolic blood pressure 95 mm[Hg] DO Marie Xavichak Work Phone: [facility] 07-16-2023 22:45-0500 Heart rate 69 /min DO Marie Xavichak Work Phone: [facility] 07-16-2023 22:45-0500 Respiratory rate 16 /min DO Marie Xavichak Work Phone: [facility] 07-16-2023 22:45-0500 SaO2% (BldA) [Mass fraction] 98 % DO Marie Vaschak Work Phone: [facility] 07-16-2023 22:45-0500 Systolic blood pressure 164 mm[Hg] DO Marie Vaschak Work Phone: [facility] 07-16-2023 13:24-0500 Body height 177.8 cm DO Marie Vaschak Work Phone: [facility] 07-16-2023 13:24-0500 Body temperature 96.7 [degF] DO Marie Vaschak Work Phone: [facility] 07-16-2023 13:24-0500 Body weight 63.95 kg DO Marie Vaschak Work Phone: [facility] 05-25-2023 13:41-0500 Diastolic blood pressure 88 mm[Hg] Adrián Davis DO Work Phone: [facility] 05-25-2023 13:41-0500 Systolic blood pressure 136 mm[Hg] Adrián Davis DO Work Phone: [facility] 05-25-2023 13:37-0500 Body height 177.8 cm Adrián Dvais DO Work Phone: [facility] 05-25-2023 13:37-0500 Body mass index (BMI) [Ratio] 19.51 kg/m2 Adrián Davis DO Work Phone: [facility] 05-25-2023 13:37-0500 Body weight 61.69 kg Adrián Davis DO Work Phone: [facility] 05-25-2023 13:37-0500 Heart rate 70 /min Adrián Davis DO Work Phone: [facility] 05-08-2023 10:33-0400 Diastolic blood pressure 85 mm[Hg] DO Marie Jamak Work Phone: [facility] 05-08-2023 10:33-0400 Heart rate 97 /min DO Marie Jamak Work Phone: [facility] 05-08-2023 10:33-0400 Respiratory rate 18 /min DO Marie Jamak Work Phone: [facility] 05-08-2023 10:33-0400 Systolic blood pressure 156 mm[Hg] DO Marie Vaschak Work Phone: [facility] 05-08-2023 05:00-0400 Body temperature 98.8 [degF] DO Marie Vaschak Work Phone: [facility] 05-08-2023 05:00-0400 SaO2% (BldA) [Mass fraction] 97 % DO Marie Vaschak Work Phone: [facility] 05-04-2023 11:00-0400 Body height 177.8 cm DO Marie Vaschak Work Phone: [facility] 05-03-2023 16:44-0400 Body weight 66.4 kg DO Marie Jamak Work Phone: [facility] 05-03-2023 11:48-0400 Body temperature 98.1 [degF] DO Marie Jamak Work Phone: [facility] 05-03-2023 11:48-0400 Diastolic blood pressure 77 mm[Hg] DO Marie Jamak Work Phone: [facility] 05-03-2023 11:48-0400 Heart rate 55 /min DO Marie Jamak Work Phone: [facility] 05-03-2023 11:48-0400 Respiratory rate 18 /min DO Marie Matthew Work Phone: [facility] 05-03-2023 11:48-0400 SaO2% (BldA) [Mass fraction] 99 % DO Marie Matthew Work Phone: [facility] 05-03-2023 11:48-0400 Systolic blood pressure 146 mm[Hg] DO Marie Matthew Work Phone: [facility] 05-03-2023 05:40-0400 Body weight 67.6 kg DO Marie Matthew Work Phone: [facility] 05-02-2023 00:00-0400 Inhaled oxygen flow rate 6 L/min DO Marie Jamak Work Phone: [facility] 04-30-2023 15:31-0400 Body mass index (BMI) [Ratio] 18.8 kg/m2 DO Marie Jamak Work Phone: [facility] 04-30-2023 15:25-0400 Body height 180.34 cm DO Marie Xavichak Work Phone: [facility] 04-28-2023 16:32-0400 Heart rate 63 /min DO Marie Xavichak Work Phone: [facility] 04-28-2023 16:24-0400 Diastolic blood pressure 83 mm[Hg] DO Marie Castro Work Phone: [facility] 04-28-2023 16:24-0400 Respiratory rate 18 /min DO Marie Castro Work Phone: [facility] 04-28-2023 16:24-0400 SaO2% (BldA) [Mass fraction] 98 % DO Marie Castro Work Phone: [facility] 04-28-2023 16:24-0400 Systolic blood pressure 167 mm[Hg] DO Marie Castro Work Phone: [facility] 04-28-2023 13:34-0400 Body temperature 97.2 [degF] DO Marie Castro Work Phone: [facility] 04-28-2023 12:19-0400 Body height 180.34 cm DO Marie Castro Work Phone: [facility] 04-28-2023 12:19-0400 Body weight 64.41 kg DO Marie Castro Work Phone: [facility] 01-07-2022 09:35-0400 Diastolic blood pressure 95 mm[Hg] Gray Ross MD Work Phone: [facility] [employer] 01-07-2022 09:35-0400 Systolic blood pressure 160 mm[Hg] Gray Ross MD Work Phone: [facility] [employer] 01-07-2022 07:46-0400 Body temperature 97.81 [degF] Gray Ross MD Work Phone: [facility] [employer] 01-07-2022 07:46-0400 Heart rate 64 /min Gray Ross MD Work Phone: [facility] [employer] 01-07-2022 07:46-0400 Respiratory rate 15 /min Gray Ross MD Work Phone: [employer] 01-07-2022 07:46-0400 SaO2% (BldA) [Mass fraction] 98 % Gray Ross MD Work Phone: [facility] [employer] 01-03-2022 04:00-0400 Body height 177.8 cm Gray Ross MD Work Phone: [facility] [employer] 01-03-2022 04:00-0400 Body mass index (BMI) [Ratio] 20.81 kg/m2 Gray Ross MD Work Phone: [facility] [employer] 01-03-2022 04:00-0400 Body weight 65.8 kg Gray Ross MD Work Phone: [facility] [employer] 04-27-2018 10:48-0400 Body mass index (BMI) [Ratio] MARINO CASTILLO [facility] Encounters Encounter Date Encounter Type Care Provider Facility Start: 08-16-2023 End: 08-16-2023 ambulatory SAMMY WOLFF [employer] Other Start: 08-16-2023 End: 08-16-2023 Office outpatient visit 15 minutes Sammy Skinner [employer] CERTIFIED INDUSTRIAL HYGIENIST-DOZER OPERATOR Work Phone: [facility] Comment on above: Cardiomyopathy, isch emic (Primary Dx); ASHD (arteriosclerotic heart disease); BMI 20.0-20.9, adult; Orthopnea Start: 08-16-2023 Telephone encounter Anat [facility] Start: 07-27-2023 End: 07-27-2023 ambulatory Marie Castro Facility:[facility] Start: 07-27-2023 End: 07-27-2023 ambulatory DO Marie Castro Work Phone: [facility] Work Phone: Start: 07-27-2023 End: 07-27-2023 Patient encounter procedure DO Marie Castro Work Phone: [facility] Start: 07-16-2023 End: 07-17-2023 ambulatory Federico Saúl Davis Facility:[facility] Start: 07-16-2023 End: 07-16-2023 Admission to same day surgery center DO Marie Castro Work Phone: [facility] Work Phone: Start: 07-16-2023 End: 07-16-2023 ambulatory DO Marie Castro Work Phone: [facility] Work Phone: Start: 07-01-2023 ambulatory None Provider Facility: [facility] Start: 06-29-2023 ambulatory None Provider Facility: [facility] Start: 06-23-2023 End: 06-23-2023 ambulatory [facility] Start: 06-22-2023 End: 06-22-2023 ambulatory Ashwini Conrad Other [employer] Other Start: 06-22-2023 Telephone encounter [facility] Start: 06-11-2023 End: 06-11-2023 ambulatory Ashwini Conrad Facility:[facility] Start: 06-11-2023 End: 06-11-2023 ambulatory DO Marie Castro Work Phone: [facility] Work Phone: Start: 06-11-2023 End: 06-11-2023 Patient encounter procedure DO Marie Castro Work Phone: [facility] Start: 06-02-2023 End: 06-09-2023 ambulatory UNKNOWN PROVIDER Facility:[facility] Start: 05-26-2023 Telephone encounter [facility] Start: 05-26-2023 End: 05-27-2023 ambulatory MARIE CASTRO [facility] Work Phone: Start: 05-26-2023 End: 05-26-2023 Patient encounter procedure DO Marie Castro Work Phone: [facility] Start: 05-25-2023 End: 05-25-2023 ambulatory [facility] Ambulatory Start: 05-25-2023 End: 05-25-2023 Office consultation new/estab patient 60 min Adrián Davis DO Work Phone: [facility] Comment on above: NSTEMI (non-ST eleva robert myocardial infarction) ([facility]/HCC) (Primary Dx); Abnormal stress test; ASHD (arteriosclerotic heart disease); Essential hypertension; Diabetes mellitus type II, non insulin dependent (CMS/[facility]); Closed fracture of right hip, initial encounter ([facility]) Start: 05-21-2023 Postop follow up vis it related to original px [facility] Start: 05-21-2023 End: 05-21-2023 ambulatory Ashwini Conrad [facility] Other Start: 05-21-2023 End: 05-21-2023 Patient encounter procedure DO Marie Castro Work Phone: [facility] Start: 05-03-2023 End: 05-08-2023 Evaluation and management of inpatient Fredi Medrano Facility:[facility] Start: 05-03-2023 End: 05-08-2023 Evaluation and management of inpatient DO Marie Castro Work Phone: [facility] Work Phone: Start: 04-28-2023 End: 05-03-2023 Evaluation and management of inpatient Humberto Diaz Facility:[facility] Start: 04-28-2023 End: 05-03-2023 Evaluation and management of inpatient DO Marie Castro Work Phone: [facility] Work Phone: Start: 04-23-2023 End: 04-24-2023 ambulatory None Provider Facility:[facility] Start: 06-05-2022 End: 06-06-[address] MARIE CASTRO Facility:[facility] Start: 05-18-2022 Encounter for other specified special examinations DR MARIE CASTRO [facility] Start: 05-14-2022 End: 05-15-[address] MARIE CASTRO Facility:[facility] Start: 05-14-2022 End: 05-15-2022 Encounter for other specified special examinations DR MARIE CASTRO Facility:[facility] Start: 01-02-2022 End: 01-07-2022 Evaluation and management of inpatient PAUL CONN [facility] Start: 01-02-2022 End: 01-07-2022 Evaluation and management of inpatient Gray Ross MD Work Phone: [phone] Comment on above: Acute gastric ulcer with perforation (HCC) (Primary Dx); Gastric perforation (HCC) Start: 01-02-2022 End: 01-02-[address] SALVADOR NARANJO Facility:[facility] Start: 06-14-2018 End: 06-15-2018 Patient encounter procedure MARIE JULIAN (FEL) [facility] Start: 04-27-2018 End: 04-27-2018 Patient encounter procedure MARINO CASTILLO [facility] Start: 04-19-2018 End: 04-20-2018 Patient encounter procedure MARINO Skinner CASTILLO [facility] Procedures Date Procedure Procedure Detail Performing Clinician Start: 08-16-2023 FOLLOW UP IN CARDIOLOGY ADRIÁN DAVIS Start: 07-27-2023 Plain X-ray of right hip DO Marie Castro Work Phone: Start: 07-16-2023 CL [facility] [employer] [facility] Ea Add LAD D O Marie Castro [...] on above: Result Comment: PERF ORMED BY: [facility] [place] [address] PATHOLOGIST [employer] AIRAM MAST M.D. Start: 04-30-2023 End: 04-30-2023 Plain X-ray of right hip DO Marie Vasch ak Work Phone: Start: 04-30-2023 Open reduction of fr acture with internal fixation DO Marie Vaschak Work Phone: Start: 04-30-2023 Plain chest X-ray DO Ro nathalia Vaschak Work Phone: Start: 04-30-2023 [facility] Angio DO R david Vaschak Work Phone: Start: 04-29-2023 Open reduction of [...] REFLEX TO MG FOR LOW K Bertin T Dayami DO Work Phone: Start: 01-07-2022 IMMATURE PLATELET FRACTION Breana Johnson MD Work Phone: Start: 01-06-2022 Assay of phosphorus inorganic Bertin T Dayami DO Work Phone: Start: 01-06-2022 BASIC METABOLIC [...] vaccine (3 - Td or Tdap) [facility] Start: 03-18-2028 DTaP/Tdap/Td Vaccine s (3 - Td or Tdap) DTaP/Tdap/Td Vaccines (3 - Td or Tdap) [facility] Start: 08-16-2023 End: 08-16-2024 Basic metabolic 2000 panel - Serum or Plasma Basic Metabolic Panel Lab Routine Cardiomyopathy, ischemic Expected: 08/16/2023 (Approximate), Expires: 08/16/2024 [facility] Work Phone: Comment on above: Expected: 08/16/2023 (Approximate), Expires: 08/16/2024 Start: 08-16-2023 End: 08-16-2024 Natriuretic peptide B [Mass/volume] in Blood B-Type Natriuretic Peptide Lab Routine Cardiomyopathy, ischemic Orthopnea Expected: 08/16/2023 (Approximate), Expires: 08/16/2024 [facility] Work Phone: Comment on above: Expected: 08/16/2023 (Approximate), Expires: 08/16/2024 Start: 07-16-2023 End: 07-16-2023 [facility] Start: 07-13-2023 COVID-19 Vaccine (3 - Moderna series) COVID-19 Vaccine (3 - Moderna series) [facility] Start: 06-23-2023 End: 06-23-2023 Patient encounter procedure 06/23/2023 2:00 PM EST Office Visit [facility] [address] [facility] [facility] [address] [place] [address] Sammy Wolff, CERTIFIED INDUSTRIAL HYGIENIST-DOZER OPERATOR [address] [facility] [address] [place] [address] [facility] Start: 05-07-2023 [facility] Start: 05-04-2023 Administration of prophylactic treatment [facility] Start: 05-03-2023 Hospital admission [facility] Start: 05-03-2023 Referral to clinical christmas tree grower [facility] Start: 05-03-2023 [facility] Start: 05-03-2023 Referral to rehabilitation physician [facility] Start: 05-02-[address] [facility] Start: 05-02-2023 [facility] Start: 05-01-[address] [facility] Start: 05-01-2023 [facility] Start: 04-30-2023 Referral to Commissary Clerk [facility] Start: 04-30-[address] [facility] Start: 04-30-2023 End: 04-30-2023 [facility] Start: 04-29-[address] [facility] Start: 04-29-2023 Lipid panel [facility] Start: 04-29-2023 [facility] Start: 04-28-2023 [facility] Start: 04-28-2023 Hospital admission [facility] Start: 04-28-2023 [facility] Start: 04-28-2023 Hospital admission [facility] Start: 04-28-2023 Consultation [facility] Start: 04-28-2023 Referral to vest backer [facility] Start: 04-28-2023 End: 04-28-2023 [facility] Start: 04-28-2023 Fluoroscopy of Left Heart using Low Osmolar Contrast Fluoroscopy of Left Heart using Low Osmolar Contrast [facility] Start: 04-28-2023 Fluoroscopy of Multi ple Coronary Arteries using Low Osmolar Contrast Fluoroscopy of Multiple Coronary Arteries using Low Osmolar Contrast [facility] Start: 04-28-2023 Insertion of Intramedullary Internal Fixation Device into Right Upper Femur, Percutaneous Approach Insertion of Intramedullary Internal Fixation Device into Right Upper Femur, Percutaneous Approach [facility] Start: 04-28-2023 Measurement of Cardi ac Sampling and Pressure, Left Heart, Percutaneous Approach Measurement of Cardiac Sampling and Pressure, Left Heart, Percutaneous Approach [facility] Start: 04-04-2022 Hemoglobin A1c measurement Diabetes: Hemoglobin A1C [facility] Start: 06-30-2021 Shingles vaccine (2 of 2) Shingles vaccine (2 of 2) [facility] Start: 01-19-2021 COVID-19 Vaccine (3 - Booster for Moderna series) COVID-19 Vaccine (3 - Booster for Moderna series) [facility] Start: 09-14-2020 Meningococcal B Vacc ine (3 of 4 - Increased Risk Bexsero 2-dose series) Meningococcal B Vaccine (3 of 4 - Increased Risk Bexsero 2-dose series) [facility] Start: 1956 Urine screening for protein Diabetes: Urine Protein Screening [facility] Start: 1949 Depression Screen Depression Screen [facility] Start: 1947 Diabetic foot examination Diabetes: Foot Exam [facility] Start: 1947 Glaucoma screening Diabetes: R etinopathy Screening [facility] Start: 1947 Meningococcal B Vacc ine (1 of 4 - Increased Risk) Meningococcal B Vaccine (1 of 4 - Increased Risk) [facility] Start: 1939 Meningococcal Vaccin e (1 - Risk 2-dose series) Meningococcal Vaccine (1 - Risk 2-dose series) [facility] Start: 06-22-1938 HIB Vaccines (1 of 1 - Risk 1-dose series) HIB Vaccines (1 of 1 - Risk 1-dose series) [facility] Start: 1937 Annual Wellness Visi t (AWV) Annual Wellness Visit (AWV) [facility] Start: [facility] Lipid panel Lipid Panel [facility] Start: 1937 Medicare Annual Well ness Visit Medicare Annual Wellness Visit (AWV) [facility] Start: 1937 Screening for osteoporosis Bone Density Scan [facility] Basic Metabolic Pane l w/ Reflex to MG Basic Metabolic Panel w/ Reflex to MG Lab Routine Daily until discontinued starting 01/06/2022, 2 completed [facility] Phone: Comment on above: Daily until disconti nued starting 01/06/2022, 2 completed CBC W Auto Different ial panel - Blood CBC with Auto Differential Lab Routine Daily until discontinued starting 01/03/2022, 5 completed [employer] Phone: Comment on above: Daily until disconti nued starting 01/03/2022, 5 completed Glucose [Mass/volume ] in Serum or Plasma POCT Glucose Point of Care Testing STAT As Needed until discontinued starting 01/02/2022 [facility] Phone: Comment on above: As Needed until disc ontinued starting 01/02/2022 Glucose [Mass/volume ] in Serum or Plasma POCT glucose Point of Care Testing Routine Now Then Every 4hr until discontinued starting 01/03/2022 [facility] Phone: Comment on above: Now Then Every 4hr u ntil discontinued starting 01/03/2022 Glucose measurement estimated from glycated hemoglobin [facility] Oxygen therapy [[facility] Data Set] Initiate Oxygen Therapy Protocol Respiratory Care Routine As Needed until discontinued starting 01/02/2022 [facility] Phone: Comment on above: As Needed until disc ontinued starting 01/02/2022 Patient Education Carbohydrate C ounting Diet Femur Fracture (DC) Carb counting for adults with diabetes [facility] Work Phone: Patient referral [facility] Work Phone: Phosphate [Mass/volu me] in Serum or Plasma Phosphorus Lab Routine Daily until discontinued starting 01/06/2022, 2 completed [employer] Phone: Comment on above: Daily until disconti nued starting 01/06/2022, 2 completed Spirometry panel Incentive carolyn metry Respiratory Care Routine Every 2hr while awake until discontinued starting 01/03/2022 [employer] Phone: Comment on above: Every 2hr while awak e until discontinued starting 01/03/2022 [facility] Payers Date Payer Category Payer Unknown [id number] 2023 Self-pay [id number] 2002 Medicare MEDICARE MEDICAR E PART A AND B [id number] 2002-Present [address] [place] [address] [id number] 1959 Medicare [id number] [id number]. [id number] 1959 Unknown [id number] 1.2.840.105716.1.13.239.2.7.3. [id number] 1937 Unknown [id number] 2.16.840.1.119881.3.579.2.175 1937 Unknown [id number] 2.16.840.1.418843.3.579.2.593 1937 Unknown [id number] 2.16.840.1.041931.3.579.2.593 1937 Unknown [id number] 2.16.840.1.843135.3.579.2.593 1937 Unknown [id number] 2.16.840.1.820774.3.579.2.1259 1937 Unknown [id number] 2.16.840.1.453555.3.579.2.1259 1937 Unknown [id number] 2.16.840.1.591241.3.579.2.732 1937 Unknown [id number] 2.16.840.1.745687.3.579.2.718 1937 Unknown [id number] 2.16.840.1.499545.3.579.2.718 1937 Unknown [id number] 2.16.840.1.178271.3.579.2.718 1937 Unknown [id number] 2.16.840.1.518373.3.579.2.1244 1937 Unknown [id number] 2.16.840.1.088748.3.579.2.1244 1937 Unknown [id number] 2.16.840.1.096166.3.579.2.1244 Unknown [id number] 2.16.840.1.460728.3.579.2.531 Unknown [id number] 2.16.840.1.957282.3.579.2.531 Unknown [id number] 2.16.840.1.357260.3.579.2.531 Unknown [id number] 2.16.840.1.145391.3.579.2.531 Unknown [id number] 2.16.840.1.892841.3.579.2.531 Unknown [id number] 2.16.840.1.686113.3.579.2.531 Social History Date Type Detail Facility Start: 01-04-2022 End: 08-16-2023 Tobacco smoking status OKIS Ex-smoker [facility] End: 08-09-2022 History of tobacco use Cigarette Smoker [facility] Phone: Start: 01-04-2022 End: 08-16-2023 Tobacco use and exposure Smokeless tobacco non-user [facility] Phone: Start: 01-05-2022 Alcohol intake Ex-drinker (finding) [facility] Phone: Start: 1935 Sex Assigned At Not on file [facility] [employer] Phone: Start: 12-24-2021 End: 08-16-2023 Exposure to SARS-CoV-2 (event) Not sure [facility] Start: 04-28-2023 End: 05-04-2023 Tobacco smoking status [facility] Current some day smoker [facility] Start: 1935 Sex Assigned At Male F [facility] Start: 05-25-2023 End: 08-16-2023 Sex Assigned At [facility] manetch Other Start: 05-25-2023 End: 08-16-2023 Alcohol intake Current drinker of alcohol (finding) [facility] Work Phone: Start: 05-25-2023 End: 08-16-2023 Alcohol intake [facility] Work Phone: Start: 07-16-2023 End: 08-09-2022 Tobacco smoking status NHIS Smoker (finding) [facility] Medical Equipment Procedure Code Equipment Code Equipment Origin al Text Equipment Identifier Dates ORIF, hip Orthopaedic bone screw, non-bioabsorbable, non-sterile [id number] FDA Start: 04-30-2023 ORIF, hip Femur nail, sterile [id number] FDA Start: 04-30-2023 ORIF, hip Spiral blade [id number] FDA Start: 04-30-2023 CL STENT MARK FRONTIER 3.5 X 18 FDA Start: 07-16-2023 Goals Date Patient Goal Desired Activity /State Functional Status Date Assessment Result Facility 07-16-2023 Functional status Patient at [facility] Work Phone: 05-08-2023 Functional status Patient is Pro gressing Toward [facility] Work Phone: 05-03-2023 Functional status Patient is Pro gressing Toward [facility] Work Phone: 04-28-2023 Functional status Patient Not at [facility] Work Phone: Mental Status Date Assessment Result Facility 07-16-2023 Cognitive function Cognitive Sta tus Patient at [facility] Work Phone: 05-08-2023 Cognitive function Cognitive Sta tus Patient is Progressing Toward [facility] Work Phone: 05-03-2023 Cognitive function Cognitive Sta tus Patient is Progressing Toward [facility] Work Phone: 04-28-2023 Cognitive function Cognitive Sta tus Patient at [facility] Work Phone: Clinical Notes 01-07-2022 to 08-16-2023 Assessment & Plan Note - JAMIE Miramontes - 08/16/2023 2:40 PM ESTAssessment & Plan [...] follow up with primary Cardiology next week [facility] Work Phone: 08-16-2023 Miscellaneous Notes [...] Elective PCI: Jul LAD: unsuccessful attempt - [employer] oDiag PCI/[place] 3.5 x 18mm Daily activity < 4 METs documented in this encounter [facility] Work Phone: 08-16-2023 Evaluation + Plan note Associated Problem(s): ASHD (arteriosclerotic heart disease) Jun 2023 [facility] presented due to mechanical fall. Incidental troponin elevations Echo EF 40-45% Cath: two-vessel disease; ef 40% anterior hypokinesis Elective PCI: Jul LAD: unsuccessful attempt - [employer] oDiag PCI/[place] 3.5 x 18mm Daily activity < 4 METs [facility] Work Phone: 08-16-2023 History of [...] date. Will be seeking POC from primary vest backer. Patient reports that overall has complaint(s) of [...] to Plavix. Will schedule follow-up with primary vest backer Dr. Perez next week. Review of Systems [...] Assessment: ASHD (arteriosclerotic heart disease) Jun 2023 [facility] presented due to mechanical fall. Incidental troponin elevations Echo EF 40-45% Cath: two-vessel disease; ef 40% anterior hypokinesis Elective PCI: Jul LAD: unsuccessful attempt - [employer] oDiag PCI/[place] 3.5 x 18mm Daily activity < 4 [...] medications to the office Sammy Wolff MSN, CERTIFIED INDUSTRIAL HYGIENIST-DOZER OPERATOR, PMHNP-[facility] Please excuse any errors in grammar or translation related to this dictation. Voice recognition software was utilized to prepare this document. documented in this encounter [facility] Work Phone: 08-16-2023 Instructions JAMIE [...] to the office documented in this encounter [facility] Work Phone: 07-16-2023 Discharge summary Note Date/Time July 16, 2023 4:06pm [facility] [address] [place] [address] Discharge Summary Signed Patient: Ashwini Vickers MR#: [id number] : 1935 Acct:[id number] Age/Sex: 88 / M Adm Date: 4 Loc: Room: Attending Dr: Federico Davis DO Copies to: DO Federico Rodriguez, ~ Providers Date of Discharge: 07/16/23 Discharging Provider: Federico Davis Primary Care Provider: Marie Castro Discharge Diagnosis (1) Non-ST elevation myocardial infarction (NSTEMI), subendocardial infarction, subsequent episode of care: (2) Diabetes: (3) CAD (coronary artery disease): Final Diagnosis Final Discharge Diagnosis: 1. Recent non-ST elevation OK associated with fall and hip fracture 2. Severe two-vessel ASHD involving mid LAD and diagonal branch bifurcation 3. Mild LV dysfunction 4. Successful PCI ostial diagonal branch into the LAD with 3.5 x 18 mm Mark stent 5. Chronic total occlusion proximal/mid LAD Summary Hospital Course Hospital course: 88-year-old gentleman with recent fall and hip fracture complicated by non-ST elevation OK, abnormal stress imaging and subsequent diagnosis of severe two-vessel coronary artery disease involving mid LAD and large diagonal branch bifurcation. The LAD itself is subtotally occluded with the diagonal branch origin being 80 to 85%. Patient was referred for elective attempt at crossing the LAD with possible revascularization as well as revascularization of the ostial diagonal branch. LAD was attempted and deemed a [employer] and therefore aborted, diagonal branch was stented with a 3.5 x 18 mm Mark stent without complications Patient will be discharged at 10 PM on dual antiplatelet therapy to follow-up with [facility] cardiology Condition Condition at Discharge: Stable Status [...] % (Auto) 75.7, Lymph % (Auto) 8.4, [place] % (Auto) 15.1, Eos % (Auto) 0.3, Baso % (Auto) 0.5, Nucleat RBC Rel Count 0.1, Neut # (Auto) 6.3, Lymph # (Auto) 0.7 L, [place] # (Auto) 1.3 H, Eos # (Auto) [...] doctor or pharmacist, without first calling the vest backer who implanted the stent. If you require [...] weight lifting, stair steppers, etc. until the vest backer approves these activities. Check with the vest backer on your first follow-up visit. CALL YOUR PHYSICIAN at [phone]: -If bleeding should occur from the catheter insertion site- apply pressure to the site then immediately call us. -Report any fever, redness, drainage, increased swelling, or firmness at the catheter insertion site. Some bruising or slight swelling may be present at thetime of discharge. -Should arm or leg become cold, numb, white, or blue, contact the vest backer immediately. -IF you should experience episodes of [...] is recommended. Please call Central Scheduling at [phone] to schedule your appointment.] The attending vest backer or [facility] nurse clinician should provide you with specific instructions regarding activity, diet, medications, and further follow up for you. Follow the medication instructions provided on your discharge. If the dosages and instructions on this sheet differ from the dosage and instructions on the bottle, follow the instructions on the bottle. [facility] is not responsible for incorrect prescription [...] 30 Days Qty: 30 0RF Follow Up: [facility] [Outside] - 08/16/23 2:00 pm Documented By: Federico Davis DO 07/16/23 2849 Signed By: <Electronically signed by Federico Davis, DO> 07/16/23 1609 [facility] Work Phone: 1(191) 388-905001-05-2024 [facility] History of Present illness Narrative* Adrián Davis, - 05/25/2023 1:00 PM EST Subjective Ashwini Vickers is a 88 y.o. male Chief Complaint Hospital Follow-up Seen in cardiology consultation at the request of Dr. Anat Perez for further evaluation and management in regards to coronary artery disease, recent non-ST elevation OK with moderately reduced left ventricular dysfunction and [...] Future 3. NSTEMI (non-ST elevated myocardial infarction) ([facility]) - Follow Up In Cardiology; Future 4. Essential hypertension 5. Diabetes mellitus type II, non insulin dependent ([facility]) 6. Closed fracture of right hip, initial encounter ([facility]: 1(715) 419-680311-14-2023 Instructions* Patient Instructions* Lori Pelayo LPN - [...] time of your visit. [facility] Phone: 1(118) 697-830611-10-2023 Evaluation note* Encounter Date Diagnosis Assessment Notes Treatment Notes Treatment Clinical Notes May, Closed displaced intertrochanteric fracture of right femur, initial encounter (ICD-10 - S72.141A) Radiographs of right hip was reviewed with the patient today, along with a physical examination. Patient should continue with PT. Continue use of pain medication to control pain. [employer] Other 10-27-2023 Progress note Author Fredi Medrano [facility] May 07, 2023 12:48pm Note Date/Time May 07, 2023 1 2:36pm [facility] [address] [place], [place] [id number] Physiatry(Rehab) Progress Note Signed Patient: Ashwini Vickers MR#: [id number] : 1935 Acct:[id number] Age/Sex: 88 / M Adm Date: 3 Loc: Room: [address] [place] [address] Type: ADM IN Attending Dr: Fredi Medrano [...] hypoglycemic in 40s. Patient was brought to [facility] ER where imaging demonstrated mildly displaced right [...] does not believe he has had an OK and is planning on performing an intervention [...] 08:00 05/07/23 12:12 Lipa/Prot/Amyla 24-76-120k [address] PO 05/03/24 07:59 2 cap TID.WITH.MEALS TAVIA [...] mg 05/03/23 16:59 Bisacodyl 10 Mg Supp.Rect CO 05/02/24 16:58 DAILY PRN Constipation Calcium Carbonate [...] 16:59 Docusate Enema 283 Mg/5 Ml Enema CO 05/02/24 16:58 DAILY PRN Constipation Enoxaparin Sodium [...] Code(s): I25.10 - Atherosclerotic heart disease of [place] coronary artery without angina pectoris Status: Acute [...] Code(s): I25.10 - Atherosclerotic heart disease of [place] coronary artery without angina pectoris Status: Acute (9) Postoperative pain, acute, hip: Code(s): G89.18 - Other acute postprocedural pain; M25.559 - Pain in unspecified hip Status: Acute Plan 88-year-old male presenting to acute inpatient rehabilitation unit with functional impairments secondary to right hip fracture s/p repair. Hospital course complicated by non-OK troponin elevation. He was found to have [...] equipment to enhance the patient's a functional jewish Ensure adequate nutrition and hydration Sleep no issues Pain: Continue current regimen. Discharge planning Home with in 7 to 10 days. I spent greater than 15 minutes for services, including uojx-ld-wblj encounter with the patient, discussion of the case, plan of care, and exam; and uucgnwm-yw-jvty activities, such as reviewing pertinent service delivery consultant documentation, recent therapy notes, laboratory and radiology studies, and discussion of case with care team including physician, nursing, case consultant, and therapists. More than 50 % of time was spent on patient/family counseling or coordination ofcare. Plan: I completed a substantive portion of this encounter, the medical decision makingportion of this note in its entirety, including Allied health note review, nursing note review, service delivery consultant note review, discussion with nursing and case management, and more than 50% of my time was spent on counseling and coordination of care, time spent 25 minutes Patient was personally seen by me, Dr. Medrano, on the day of encounter, reviewed the history and the relevant portions of the chart, including current orders, allied health and service delivery consultant notes, labs/imaging and performed smyth elements of exam and I formulated the plan of care and facilitated the medical decision making. Documented By: Fredi Medrano MD 1234 Signed By: <Electronically signed by Fredi Medrano MD> 05/07/23 1248 [facility] Work Phone: [phone]) 179-146310-26-2023 Progress note Author Fredi Medrano [facility] May 06, 2023 2:46pm Note Date/Time May 06, 2023 1 2:53pm [facility] [address] [place] [address] Physiatry(Rehab) Progress Note Signed Patient: Ashwini Vickers MR#: [id number] : 1935 Acct:[id number] Age/Sex: 88 / M Adm Date: 3 Loc: Room: 6F8348-6 Type: ADM IN Attending Dr: Fredi Medrano [...] hypoglycemic in 40s. Patient was brought to [facility] ER where imaging demonstrated mildly displaced right [...] does not believe he has had an OK and is planning on performing an intervention [...] mg 05/03/23 16:59 Bisacodyl 10 Mg Supp.Rect CO 05/02/24 16:58 DAILY PRN Constipation Calcium Carbonate [...] 16:59 Docusate Enema 283 Mg/5 Ml Enema CO 05/02/24 16:58 DAILY PRN Constipation Enoxaparin Sodium [...] Insuln.Pen SUBCUT 05/02/24 16:59 7 units TID.WITH.MEALS [facility] Administration Protocol Insulin Aspart 0 units 05/03/23 18:00 05/06/23 06:38 Insulin Aspart 300 Units/3 Ml Insuln.Pen SUBCUT 05/02/24 17:59 Not Given ACHS [facility] Protocol Insulin Glargine 7 units [...] mg DAILY TAVIA Administration Assessment/Plan <Teena Victoria, CERTIFIED INDUSTRIAL HYGIENIST - Last Filed: 05/06/23 13:14> Assessment/Plan (1) Closed intertrochanteric fracture of right hip: Code(s): S72.141A - Displaced intertrochanteric fracture of right femur, initial encounter for closed fracture Status: Acute (2) CAD (coronary artery disease): Code(s): I25.10 - Atherosclerotic heart disease of [place] coronary artery without angina pectoris Status: Acute [...] Code(s): I25.10 - Atherosclerotic heart disease of [place] coronary artery without angina pectoris Status: Acute (9) Postoperative pain, acute, hip: Code(s): G89.18 - Other acute postprocedural pain; M25.559 - Pain in unspecified hip Status: Acute Plan 88-year-old male presenting to acute inpatient rehabilitation unit with functional impairments secondary to right hip fracture s/p repair. Hospital course complicated by non-OK troponin elevation. He was found to have [...] equipment to enhance the patient's a functional jewish Ensure adequate nutrition and hydration Sleep no issues Pain: Continue current regimen. Discharge planning Home with in 7 to 10 days. I spent greater than 15 minutes for services, including oeyi-mj-bwyc encounter with the patient, discussion of the case, plan of care, and exam; and focimdv-sy-wuxq activities, such as reviewing pertinent service delivery consultant documentation, recent therapy notes, laboratory and radiology studies, and discussion of case with care team including physician, nursing, case consultant, and therapists. More than 50 % of [...] the chart, including currentorders, allied health and service delivery consultant notes, labs/imaging and plan of care as above. Documented By: Teena Victoria APRN 05/06/23 1 250 Signed By: <Electronically signed by AMADA Victoria> 05/06/23 1314 <Electronically signed by Fredi Medrano MD> 05/06/23 7242 [facility] Work Phone: 1(868) 649-613610-26-2023 Consult note Author Vidya Robert [facility] May 06, 2023 1:15pm Note Date/Time May 04, 2023 3 :49pm [facility] [address] [place] [address] Hospitalist Consult Note Signed Patient: Ashwini Vickers MR#: [id number] : 1935 Acct:[id number] Age/Sex: 88 / M Adm Date: 3 Loc: Room: [address] [place] [address] Type: ADM IN Attending Dr: Fredi Medrano [...] unless noted below or in HPI [facility] Medical History (Updated 05/04/23 @ 16:15 [...] Allergies Allergy (Verified 04/28/23 12:20) Home Medications duoolw-ohgzavuk-pcfcwsz 24,000-76,000-120,000 unit capsule,delayed rel (Creon) 2cap PO [...] mg 05/03/23 16:59 Bisacodyl 10 Mg Supp.Rect CO 05/02/24 16:58 DAILY PRN Constipation Calcium Carbonate [...] 16:59 Docusate Enema 283 Mg/5 Ml Enema CO 05/02/24 16:58 DAILY PRN Constipation Enoxaparin Sodium [...] % (Auto) 64.9, Lymph % (Auto) 23.0, [place] % (Auto) 9.9, Eos % (Auto) 1.5, Baso % (Auto) 0.7, Nucleat RBC Rel Count 0.2, Neut # (Auto) 4.6, Lymph # (Auto) 1.6, [place] # (Auto) 0.7, Eos # (Auto) 0.1, [...] By: <Electronically signed by AMADA Wright> 05/05/23 0820 <Electronically signed by Vidya Robert MD> 05/06/23 1310 [facility] Work Phone: 1(354) 387-958610-25-2023 Progress note Author Fredi Medrano [facility] May 05, 2023 1:10pm Note Date/Time May 05, 2023 1 :11pm [facility] [address] [place] [address] Physiatry(Rehab) Progress Note Signed Patient: Ashwini Vickers MR#: [id number] : 1935 Acct:[id number] Age/Sex: 88 / M Adm Date: 3 Loc: Room: [address] [place] [address] Type: ADM IN Attending Dr: Fredi Medrano [...] hypoglycemic in 40s. Patient was brought to [facility] ER where imaging demonstrated mildly displaced right [...] does not believe he has had an OK and is planning on performing an intervention [...] mg 05/03/23 16:59 Bisacodyl 10 Mg Supp.Rect CO 05/02/24 16:58 DAILY PRN Constipation Calcium Carbonate [...] 16:59 Docusate Enema 283 Mg/5 Ml Enema CO 05/02/24 16:58 DAILY PRN Constipation Enoxaparin Sodium [...] Insuln.Pen SUBCUT 05/02/24 16:59 6 units TID.WITH.MEALS [facility] Administration Protocol Insulin Aspart 0 units 05/03/23 18:00 05/05/23 13:03 Insulin Aspart 300 Units/3 Ml Insuln.Pen SUBCUT 05/02/24 17:59 2 units ACHS [facility] Administration Protocol Insulin Glargine 7 [...] Code(s): I25.10 - Atherosclerotic heart disease of [place] coronary artery without angina pectoris Status: Acute [...] Code(s): I25.10 - Atherosclerotic heart disease of [place] coronary artery without angina pectoris Status: Acute (9) Postoperative pain, acute, hip: Code(s): G89.18 - Other acute postprocedural pain; M25.559 - Pain in unspecified hip Status: Acute Plan 88-year-old male presenting to acute inpatient rehabilitation unit with functional impairments secondary to right hip fracture s/p repair. Hospital course complicated by non-OK troponin elevation. He was found to have [...] equipment to enhance the patient's a functional jewish Ensure adequate nutrition and hydration Sleep no issues Pain: Continue current regimen. Discharge planning Home with in 7 to 10 days. Plan: I completed a substantive portion of this encounter, the medical decision makingportion of this note in its entirety, including Allied health note review, nursing note review, service delivery consultant note review, discussion with nursing and case management, and more than 50% of my time was spent on counseling and coordination of care, time spent 25 minutes Patient was personally seen by me, Dr. Medrano, on the day of encounter, reviewed the history and the relevant portions of the chart, including current orders, allied health and service delivery consultant notes, labs/imaging and performed smyth elements of exam and I formulated the plan of care and facilitated the medical decision making. Documented By: Fredi Medrano MD 1308 Signed By: <Electronically signed by Fredi Medrano MD> 05/05/23 1310 [facility] Work Phone: 1([phone]) 657-702810-25-2023 History and physical note Author Fredi Medrano [facility] May 05, 2023 10:01am Note Date/Time May 04, 2023 1 1:35am [facility] [address] [place] [address] Physiatry (Rehab) H&P Signed Patient: Ashwini Vickers MR#: [id number] : 1935 Acct:[id number] Age/Sex: 88 / M Adm Date: 3 Loc: Room: [address] [place] [address] Type: ADM IN Attending Dr: Fredi Medrano [...] hypoglycemic in 40s. Patient was brought to [facility] ER where imaging demonstrated mildly displaced right [...] does not believe he has had an OK and is planning on performing an intervention [...] home. Does not use assistive devices. [facility] Medical History Anxiety and depression BPH [...] 12:20) Home and Active Meds: Home Medications lixcqt-wncwidjf-lkrebyl 24,000-76,000-120,000 unit capsule,delayed rel (Creon) 2cap PO [...] 1 Cap Capsule.) 2 cap PO TID.WITH.MEALS [facility] Stop: 05/03/24 07:59 Last Admin: [...] 80 Mg Tablet) 80 mg PO QPM [facility] Stop: 05/02/24 20:59 Last Admin: 05/03/23 21:13 Dose: 80 mg Bisacodyl (Bisacodyl 10 Mg Supp.Rect) 10 mg CO DAILY PRN PRN Reason: Constipation Stop: 05/02/24 16:58 Calcium Carbonate (Calcium Carbonate/Vitamin D3 500 Mg/200 Unit Tablet) 1 tab PO TID.WITH.MEALS [facility] Stop: 05/03/24 07:59 Last Admin: 05/04/23 08:10 Dose: 1 tab Cyclobenzaprine HCl (Cyclobenzaprine 5 Mg Tablet) 5 mg PO Q8H PRN PRN Reason: Muscle Spasm Stop: 05/03/24 10:29 Docusate Sodium (Docusate 100 Mg Capsule) 100 mg PO BID PRN PRN Reason: Constipation Stop: 05/02/24 16:58 Docusate Sodium (Docusate Enema 283 Mg/5 Ml Enema) 283 mg CO DAILY PRN PRN Reason: Constipation Stop: 05/02/24 16:58 Enoxaparin Sodium (Enoxaparin 40 Mg/0.4 Ml Syringe) 40 mg SUBCUT DAILY@1000 [facility] Stop: 05/03/24 09:59 Insulin Aspart (Insulin Aspart 300 Units/3 Ml Insuln.Pen) 0 units SUBCUT TID.WITH.MEALS [facility]; Protocol Stop: 05/02/24 16:59 Last Admin: 05/04/23 08:27 Dose: 7 units Insulin Aspart (Insulin Aspart 300 Units/3 Ml Insuln.Pen) 0 units SUBCUT ACHS [facility]; Protocol Stop: 05/02/24 17:59 Last Admin: 05/04/23 08:27 Dose: 1 units Insulin Glargine (Insulin Glargine 300 Units/3 Ml Insuln.Pen) 7 units SUBCUT BID [facility] Stop: 05/02/24 20:59 Last Admin: 05/04/23 08:16 [...] 30 Mg Tablet) 30 mg PO DAILY [facility] Stop: 05/03/24 08:59 Last Admin: 05/04/23 08:10 Dose: 30 mg Sennosides (Sennosides 8.6 Mg Tablet) 2 tab PO DAILY@12 PRN PRN Reason: If no BM in 2 days Stop: 05/03/24 11:59 Sodium Chloride (Sodium Chloride 0.9 % 10 Ml Syringe) 0 ml IV-PUSH PRN PRN PRN Reason: Flush Stop: 05/02/24 16:58 Tamsulosin HCl (Tamsulosin 0.4 Mg Cap.Er.24h) 0.4 mg PO DAILY [facility] Stop: 05/03/24 08:59 Last Admin: 05/04/23 08:10 Dose: 0.4 mg Triamcinolone Acetonide (Triamcinolone 0.1% Cream 15 Gm Tube) 1 applic TOPICAL QID PRN PRN Reason: Irritation Stop: 05/02/24 17:10 Valsartan (Valsartan 80 Mg Tablet) 80 mg PO DAILY [facility] Stop: 05/03/24 08:59 Last Admin: [...] % (Auto) 64.9 Lymph % (Auto) 23.0 [place] % (Auto) 9.9 Eos % (Auto) 1.5 Baso % (Auto) 0.7 Nucleat RBC Rel Count 0.2 Neut # (Auto) 4.6 Lymph # (Auto) 1.6 [place] # (Auto) 0.7 Eos # (Auto) 0.1 [...] MPV Neut % (Auto) Lymph % (Auto) [place] % (Auto) Eos % (Auto) Baso % (Auto) Nucleat RBC Rel Count Neut # (Auto) Lymph # (Auto) [place] # (Auto) Eos # (Auto) Baso # [...] 14 Days Expected Discharge Destination: Home Rehabilitation [facility]: 8.11 Primary Diagnosis: as above Patient?s/Family?s [...] 24 hour daily monitoring and intervention from Drill Sharpener as well as other consulting physicians including internal medicine as well as 24 hour daily crime lab technician nursing - for medical safe / optimal [...] Code(s): I25.10 - Atherosclerotic heart disease of [place] coronary artery without angina pectoris Status: Acute [...] Code(s): I25.10 - Atherosclerotic heart disease of [place] coronary artery without angina pectoris Status: Acute (9) Postoperative pain, acute, hip: Code(s): G89.18 - Other acute postprocedural pain; M25.559 - Pain in unspecified hip Status: Acute Plan 88-year-old male presenting to acute inpatient rehabilitation unit with functional impairments secondary to right hip fracture s/p repair. Hospital course complicated by non-OK troponin elevation. He was found to have [...] equipment to enhance the patient's a functional jewish Ensure adequate nutrition and hydration Sleep no issues Pain: Continue current regimen. Discharge planning Home with in 7 to 10 days. I spent greater than 45 minutes for services, including mupt-oh-kwgi encounter with the patient, discussion of the case, plan of care, and exam; and bdyftjc-dc-iuxc activities, such as reviewing pertinent service delivery consultant documentation, recent therapy notes, laboratory and radiology studies, and discussion of case with care team including physician, nursing, case consultant, and therapists. More than 50 % of time was spent on patient/family counseling or coordination ofcare. Plan: I completed a substantive portion of this encounter, the medical decision makingportion of this note in its entirety, including Allied health note review, nursing note review, service delivery consultant note review, discussion with nursing and case management, and more than 50% of my time was spent on counseling and coordination of care, time spent 70 minutes Patient was personally seen by me, Dr. Medrano, on the day of encounter, within 24 hours of rehab admission, reviewed the history and the relevant portions of the chart, including current orders, allied health and service delivery consultant notes, labs/imaging and performed smyth elements of exam and I formulated the planof care and facilitated the medical decision making. Documented By: Teena Victoria APRN 05/04/23 1 122 Signed By: <Electronically signed by AMADA Victoria> 05/04/23 1209 <Electronically signed by Fredi Medrano MD> 05/05/23 1001 [facility] Work Phone: [phone]) [phone] Progress note Author Ashwini Conrad [facility] May 03, 2023 12:02pm Note Date/Time May 03, 2023 1 1:49am [facility] [address] [place] [address] Orthopedic Progress Note Signed Patient: Ashwini Vickers MR#: [id number] : 1935 Acct:[id number] Age/Sex: 88 / M Adm Date: 3 Loc: Room: [address] [place] [address] Type: ADM IN Attending Dr: Humberto Diaz [...] Code(s): I25.10 - Atherosclerotic heart disease of [place] coronary artery without angina pectoris Status: Acute [...] signed by Ashwini Conrad MD> 05/03/23 1202 [facility] Work Phone: 1(259) 438-413910-22-2023 Progress note Author Sushant Cordon [facility] May 02, 2023 2:35pm Note Date/Time May 02, 2023 2 :35pm [facility] [address] [place] [address] Hospitalist Progress Note Signed Patient: Ashwini Vickers MR#: [id number] : 1935 Acct:[id number] Age/Sex: 88 / M Adm Date: 3 Loc: 4N Room: [id number] Type: ADM IN Attending Dr: uSshant Cordon DO Copies to: ~ Date of [...] mg 04/28/23 17:19 Bisacodyl 10 Mg Supp.Rect CO 04/27/24 17:18 DAILY PRN Constipation Calcium Carbonate [...] Units/3 Ml Insuln.Pen SUBCUT 05/01/24 16:59 TID.WITH.MEALS [facility] Protocol Insulin Glargine 7 units [...] <Electronically signed by Sushant Cordon DO> 05/02/23 1435 [facility] Work Phone: [phone] 593-133310-22-2023 Progress note Author Ashwini Conrad [facility] May 02, 2023 2:12pm Note Date/Time May 02, 2023 2 :12pm [facility] [address] [place] [address] Orthopedic Progress Note Signed Patient: Ashwini Vickers MR#: [id number] : 1935 Acct:[id number] Age/Sex: 88 / M Adm Date: 3 Loc: 4N Room: [id number] Type: ADM IN Attending Dr: Sushant Cordon [...] MPV Neut % (Auto) Lymph % (Auto) [place] % (Auto) Eos % (Auto) Baso % (Auto) Nucleat RBC Rel Count Neut # (Auto) Lymph # (Auto) [place] # (Auto) Eos # (Auto) Baso # [...] % (Auto) 71.9 Lymph % (Auto) 13.7 [place] % (Auto) 13.5 Eos % (Auto) 0.8 Baso % (Auto) 0.1 Nucleat RBC Rel Count 0.0 Neut # (Auto) 6.2 Lymph # (Auto) 1.2 [place] # (Auto) 1.2 H Eos # (Auto) [...] MPV Neut % (Auto) Lymph % (Auto) [place] % (Auto) Eos % (Auto) Baso % (Auto) Nucleat RBC Rel Count Neut # (Auto) Lymph # (Auto) [place] # (Auto) Eos # (Auto) Baso # (Auto) PHA Creatinine Clear Sodium Potassium Chloride Carbon Dioxide Anion Gap BUN Creatinine Est GFR (CKD-EPI) Glucose POC Glucose 376 POC Glucose Comment Calcium Triglycerides Cholesterol LDL Cholesterol, Calc VLDL Cholesterol HDL Cholesterol Cholesterol/HDL Ratio Assessment / Plan Assessment and plan (1) Two-vessel coronary artery disease: Code(s): I25.10 - Atherosclerotic heart disease of [place] coronary artery without angina pectoris Status: Acute [...] signed by Ashwini Conrad MD> 05/02/23 1412 [facility] Work Phone: [phone] 946-980910-22-2023 Progress note Author Harsh Del Valle [facility] May 02, 2023 10:49am Note Date/Time May 02, 2023 1 0:49am [facility] [address] [place] [address] Cardiology Progress Note Signed Patient: Ashwini Vickers MR#: [id number] : 1935 Acct:[id number] Age/Sex: 88 / M Adm Date: 3 Loc: Room: [address] [place] [address] Type: ADM IN Attending Dr: Sushant Cordon [...] is to be determined by her primary vest backer and Dr. Davis Exam Physical Exam Vital [...] MPV Neut % (Auto) Lymph % (Auto) [place] % (Auto) Eos % (Auto) Baso % (Auto) Nucleat RBC Rel Count Neut # (Auto) Lymph # (Auto) [place] # (Auto) Eos # (Auto) Baso # [...] % (Auto) 71.9 Lymph % (Auto) 13.7 [place] % (Auto) 13.5 Eos % (Auto) 0.8 Baso % (Auto) 0.1 Nucleat RBC Rel Count 0.0 Neut # (Auto) 6.2 Lymph # (Auto) 1.2 [place] # (Auto) 1.2 H Eos # (Auto) [...] MPV Neut % (Auto) Lymph % (Auto) [place] % (Auto) Eos % (Auto) Baso % (Auto) Nucleat RBC Rel Count Neut # (Auto) Lymph # (Auto) [place] # (Auto) Eos # (Auto) Baso # [...] Code(s): I25.10 - Atherosclerotic heart disease of [place] coronary artery without angina pectoris Status: Acute [...] intervention Documented By: Harsh Del Valle MD, [facility] 3 1047 Signed By: <Electronically signed by [facility] Harsh Del Valle> 05/02/23 1049 [facility] Work Phone: [phone] 560-677410-21-2023 Progress note Author Sushant Cordon [facility] May 01, 2023 3:13pm Note Date/Time May 01, 2023 3 :09pm [facility] [address] [place] [address] Hospitalist Progress Note Signed Patient: Ashwini Vickers MR#: [id number] : 1935 Acct:[id number] Age/Sex: 88 / M Adm Date: 3 Loc: 4N Room: [id number] Type: ADM IN Attending Dr: Sushant Cordon [...] mg 04/28/23 17:19 Bisacodyl 10 Mg Supp.Rect CO 04/27/24 17:18 DAILY PRN Constipation Calcium Carbonate [...] Insuln.Pen SUBCUT 04/27/24 21:59 Not Given TID.WM.HS TAVIA Protocol Insulin Glargine 7 units 05/01/23 21:00 Insulin Glargine 300 Units/3 Ml Insuln.Pen SUBCUT 04/30/24 20:59 BID TAVIA Lidocaine HCl 0.1 ml 04/29/23 01:31 Lidocaine [...] signed by Sushant Cordon DO> 05/01/23 1513 [facility] Work Phone: [phone] Progress note [facility] May 01, 2023 12:24pm Note Date/Time May 01, 2023 1 2:21pm [facility] [address] [place] [address] Cardiology Progress Note Signed Patient: Ashwini Vickers MR#: [id number] : 1935 Acct:[id number] Age/Sex: 88 / M Adm Date: 3 Loc: 4N Room: 0M6547-9 Type: ADM IN Attending Dr: Sushant Cordon [...] MPV Neut % (Auto) Lymph % (Auto) [place] % (Auto) Eos % (Auto) Baso % (Auto) Nucleat RBC Rel Count Neut # (Auto) Lymph # (Auto) [place] # (Auto) Eos # (Auto) Baso # [...] MPV Neut % (Auto) Lymph % (Auto) [place] % (Auto) Eos % (Auto) Baso % (Auto) Nucleat RBC Rel Count Neut # (Auto) Lymph # (Auto) [place] # (Auto) Eos # (Auto) Baso # [...] MPV Neut % (Auto) Lymph % (Auto) [place] % (Auto) Eos % (Auto) Baso % (Auto) Nucleat RBC Rel Count Neut # (Auto) Lymph # (Auto) [place] # (Auto) Eos # (Auto) Baso # [...] MPV Neut % (Auto) Lymph % (Auto) [place] % (Auto) Eos % (Auto) Baso % (Auto) Nucleat RBC Rel Count Neut # (Auto) Lymph # (Auto) [place] # (Auto) Eos # (Auto) Baso # [...] % (Auto) 68.2 Lymph % (Auto) 16.8 [place] % (Auto) 14.1 Eos % (Auto) 0.6 Baso % (Auto) 0.3 Nucleat RBC Rel Count 0.1 Neut # (Auto) 6.0 Lymph # (Auto) 1.5 [place] # (Auto) 1.2 H Eos # (Auto) [...] MPV Neut % (Auto) Lymph % (Auto) [place] % (Auto) Eos % (Auto) Baso % (Auto) Nucleat RBC Rel Count Neut # (Auto) Lymph # (Auto) [place] # (Auto) Eos # (Auto) Baso # [...] Code(s): I25.10 - Atherosclerotic heart disease of [place] coronary artery without angina pectoris Status: Acute [...] intervention Documented By: Harsh Del Valle MD, [facility] 3 1220 Signed By: <Electronically signed by [facility] Harsh Del Valle> 05/01/23 1224 [facility] Work Phone: [phone] Progress note Author Ashwini Conrad [facility] May 01, 2023 11:31am Note Date/Time May 01, 2023 1 1:31am [facility] [address] [place] [address] Orthopedic Progress Note Signed Patient: Ashwini Vickers MR#: [id number] : 1935 Acct:[id number] Age/Sex: 88 / M Adm Date: 3 Loc: 4N Room: [id number] Type: ADM IN Attending Dr: Sushant Cordon [...] % (Auto) 79.2 Lymph % (Auto) 5.9 [place] % (Auto) 14.6 Eos % (Auto) 0.0 Baso % (Auto) 0.3 Nucleat RBC Rel Count 0.1 Neut # (Auto) 7.4 Lymph # (Auto) 0.6 L [place] # (Auto) 1.4 H Eos # (Auto) [...] MPV Neut % (Auto) Lymph % (Auto) [place] % (Auto) Eos % (Auto) Baso % (Auto) Nucleat RBC Rel Count Neut # (Auto) Lymph # (Auto) [place] # (Auto) Eos # (Auto) Baso # [...] MPV Neut % (Auto) Lymph % (Auto) [place] % (Auto) Eos % (Auto) Baso % (Auto) Nucleat RBC Rel Count Neut # (Auto) Lymph # (Auto) [place] # (Auto) Eos # (Auto) Baso # [...] MPV Neut % (Auto) Lymph % (Auto) [place] % (Auto) Eos % (Auto) Baso % (Auto) Nucleat RBC Rel Count Neut # (Auto) Lymph # (Auto) [place] # (Auto) Eos # (Auto) Baso # [...] MPV Neut % (Auto) Lymph % (Auto) [place] % (Auto) Eos % (Auto) Baso % (Auto) Nucleat RBC Rel Count Neut # (Auto) Lymph # (Auto) [place] # (Auto) Eos # (Auto) Baso # [...] % (Auto) 68.2 Lymph % (Auto) 16.8 [place] % (Auto) 14.1 Eos % (Auto) 0.6 Baso % (Auto) 0.3 Nucleat RBC Rel Count 0.1 Neut # (Auto) 6.0 Lymph # (Auto) 1.5 [place] # (Auto) 1.2 H Eos # (Auto) [...] MPV Neut % (Auto) Lymph % (Auto) [place] % (Auto) Eos % (Auto) Baso % (Auto) Nucleat RBC Rel Count Neut # (Auto) Lymph # (Auto) [place] # (Auto) Eos # (Auto) Baso # [...] Code(s): I25.10 - Atherosclerotic heart disease of [place] coronary artery without angina pectoris Status: Acute [...] signed by Ashwini Conrad MD> 05/01/23 1131 [facility] Work Phone: [phone] 438-244610-20-2023 Progress note Author Sushant Cordon [facility] April 30, 2023 9:13pm Note Date/Time April 30, 2023 9 :13pm [facility] [address] [place] [address] Hospitalist Progress Note Signed Patient: Ashwini Vickers MR#: [id number] : 1935 Acct:[id number] Age/Sex: 88 / M Adm Date: 3 Loc: N Room: [address] [place] [address] Type: ADM IN Attending Dr: Sushant Cordon [...] mg 04/28/23 17:19 Bisacodyl 5 Mg Tablet.Dr SUNSHINE 04/27/24 17:18 DAILY PRN Constipation Bisacodyl 10 mg 04/28/23 17:19 Bisacodyl 10 Mg Supp.Rect CO 04/27/24 17:18 DAILY PRN Constipation Calcium Carbonate [...] Mg/0.4 Ml Syringe SUBCUT 04/30/24 09:59 DAILY@1000 [facility] Glucose 0 gm 04/28/23 17:14 [...] Lactated Ringers IV 04/29/24 16:44 Not Given .[id number] TAVIA Cefazolin Sodium 1 gm in 50 [...] Tablet PO 04/28/24 08:59 Not Given DAILY [facility] Potassium Chloride 40 meq 04/30/23 [...] <Electronically signed by Sushant Cordon DO> 04/30/232112 [facility] Work Phone: 1(522) 308-378310-20-2023 Hospital Discharge instructions Additional Instructions Rehab to [...] high armed straight-backed chair. -May use toilet recep on commode. -Continue to use walker or [...] OTHER -Any problems- Call the office at [phone] or return to Emergency Room. -If you are having excessive or persistent pain, swelling, fever (oral temp >101), yellow-green foul smelling drainage or bleeding from incision, excessive redness of incision, nausea, vomiting, or any other problems, you should first call your surgeon at [phone] for advice. If you are unable to contact your surgeon, seek help from a hospital emergency room. FOLLOW UP -Call my office the first business day after discharge and ask for assistance with post-discharge plans, and appointments.[facility] Work Phone: [phone] 508-308410-20-2023 Progress note Author Anat Perez [facility] April 30, 2023 10:32am Note Date/Time April 30, 2023 1 0:32am [facility] [address] [place] [address] Cardiology Progress Note Signed Patient: Ashwini Vickers MR#: [id number] : 1935 Acct:[id number] Age/Sex: 88 / M Adm Date: 3 Loc: Room: [address] [place] [address] Type: ADM IN Attending Dr: Sushant Cordon [...] events overnight. Denies chest pain or dyspnea. [facility] scheduled for this AM (findings as below) [...] MPV Neut % (Auto) Lymph % (Auto) [place] % (Auto) Eos % (Auto) Baso % (Auto) Nucleat RBC Rel Count Neut # (Auto) Lymph # (Auto) [place] # (Auto) Eos # (Auto) Baso # [...] MPV Neut % (Auto) Lymph % (Auto) [place] % (Auto) Eos % (Auto) Baso % (Auto) Nucleat RBC Rel Count Neut # (Auto) Lymph # (Auto) [place] # (Auto) Eos # (Auto) Baso # [...] % (Auto) 60.6 Lymph % (Auto) 22.0 [place] % (Auto) 16.4 Eos % (Auto) 0.6 Baso % (Auto) 0.4 Nucleat RBC Rel Count 0.1 Neut # (Auto) 5.4 Lymph # (Auto) 2.0 [place] # (Auto) 1.5 H Eos # (Auto) [...] MPV Neut % (Auto) Lymph % (Auto) [place] % (Auto) Eos % (Auto) Baso % (Auto) Nucleat RBC Rel Count Neut # (Auto) Lymph # (Auto) [place] # (Auto) Eos # (Auto) Baso # [...] MPV Neut % (Auto) Lymph % (Auto) [place] % (Auto) Eos % (Auto) Baso % (Auto) Nucleat RBC Rel Count Neut # (Auto) Lymph # (Auto) [place] # (Auto) Eos # (Auto) Baso # [...] Dizziness/syncope due to recurrent hypoglycemia Recommendations: - [facility] this am is significant for two-vessel coronary artery disease- 100% prox LAD occlusion; 80% D1; LCx has 50% prox stenosis with 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 - Discussed with shotblast operator- Dr Davis regarding timing of intervention- given that pt did not have OK on presentation and was very functional prior [...] signed by Anat Perez MD> 04/30/23 1032 [facility] Work Phone: [phone] [facility] Progress note Author Sushant Cordon [facility] April 29, 2023 6:28pm Note Date/Time April 29, 2023 6 :28pm [facility] [address] [place] [address] Hospitalist Progress Note Signed Patient: Ashwini Vickers MR#: [id number] : 1935 Acct:[id number] Age/Sex: 88 / M Adm Date: 3 Loc: N Room: [address] [place] [address] Type: ADM IN Attending Dr: Sushant Cordon [...] 04/29/23 17:15 Lipa/Prot/Amyla 24-76-120k [address]Dr PO 04/28/24 07:59 2 cap TID.WITH.MEALS TAVIA Administration Ascorbic Acid 500 mg 04/29/23 09:00 04/29/23 08:57 Ascorbic Acid 500 Mg Tablet PO 04/28/24 08:59 Not Given DAILY TAVIA Bisacodyl 10 mg 04/28/23 17:19 Bisacodyl 5 Mg Tablet.Dr PO 04/27/24 17:18 DAILY PRN Constipation Bisacodyl 10 mg 04/28/23 17:19 Bisacodyl 10 Mg Supp.Rect CO 04/27/24 17:18 DAILY PRN Constipation Calcium Carbonate [...] Dextrose-Lactated Ringers IV 04/27/24 17:14 125 mls/hr .[id number] TAVIA Administration Lactated Ringer's 1,000 mls @ [...] <Electronically signed by Sushant Cordon DO> 04/29/231827 [facility] Work Phone: 1([phone] 901-338410-19-2023 Consult note Author Anat Perez [facility] April 29, 2023 5:34pm Note Date/Time April 29, 2023 5 :07pm [facility] [address] [place] [address] Cardiology Consult Note Signed Patient: Ashwini Vickers MR#: [id number] : 1935 Acct:[id number] Age/Sex: 88 / M Adm Date: 3 Loc: Room: [address] [place] [address] Type: ADM IN Attending Dr: Sushant Cordon DO Copies to: Sushant Cordon, MD Marie Le DO~ Cardiology HPI History of Present Illness [...] unless noted below or in HPI [facility] [facility] Medical History (Updated 04/29/23 @ 17:34 [...] unit subcut HS 04/28/23 [History Confirmed 04/28/23] ianrly-ooxkmwnl-lnpqutd 24,000-76,000-120,000 unit capsule,delayed rel (Creon) 2cap PO [...] x10E3/uL Lymph # (Auto) 2.0 (1.00-4.8) x10E3/uL [place] # (Auto) 1.1 H (0.0-0.8) x10E3/uL Eos [...] ,000 ml @ 125 mls/hr IV .Q8H [facility] Rx#:[id number] Oral 0 / 0 0 / 0 [...] disease) prior to surgery. -Will plan for [facility] tomorrow for further evaluation/risk stratification. NPO past midnight. Documented By: Anat Perez MD 04/29/23 1704 Signed By: <Electronically signed by Anat Perez MD> 04/29/23 1316 [facility] Work Phone: 1(198) 256-245210-18-2023 Consult note Author Ashwini Conrad [facility] April 28, 2023 6:47pm Note Date/Time April 28, 2023 6 :43pm [facility] [address] [place] [address] Orthopedic Consult Note Signed Patient: Ashwini Vickers MR#: [id number] : 1935 Acct:[id number] Age/Sex: 88 / M Adm Date: 3 Loc: 4N Room: [address] [place] [address] Type: ADM IN Attending Dr: Sushant Cordon [...] unless noted below or in HPI [facility] Medical History (Updated 04/28/23 @ 17:35 [...] unit subcut HS 04/28/23 [History Confirmed 04/28/23] jyaled-nnvfvyxs-ncklrqy 24,000-76,000-120,000 unit capsule,delayed rel (Creon) 2cap PO [...] Appearance Clear, Urine pH 6.5, Ur Specific Clifton 1.009, Urine Protein Negative, Urine Glucose (UA) [...] % (Auto) 75.0, Lymph % (Auto) 14.8, Flathead % (Auto) 9.3, Eos % (Auto) 0.5, Baso % (Auto) 0.4, Nucleat RBC Rel Count 0.1, Neut # (Auto) 7.3, Lymph # (Auto) 1.4, Flat[place] # (Auto) 0.9 H, Eos # (Auto) 0.0, Baso # (Auto) 0.0, Monocyte Dist Width 18.61 H & H 04/28/23 Range/Units 13:20 Hgb 11.5 L (13.0-17.0) g/dL Hct 34.8 L (38.8-50.0) % Coagulation 04/28/23 Range/Units 13:20 INR 1.0 All other labs are normal. Imaging & Diagnostic Results Imaging/Diagnostics: XRAY ([facility] 04/28/2023) Right FEMUR/RIGHT HIP/PELVIS: AP of the [...] signed by Ashwini Conrad MD> 04/28/23 1847 [facility] Work Phone: 1(166) 518-589710-18-2023 History and physical note Author Sushant Cordon [facility] April 28, 2023 5:40pm Note Date/Time April 28, 2023 5 :40pm [facility] [address] [place] [address] Hospitalist H&P Signed Patient: Ashwini Vickers MR#: [id number] : 1935 Acct:[id number] Age/Sex: 88 / M Adm Date: 3 Loc: Room: [address] [place] [address] Type: ADM IN Attending Dr: Sushant Cordon [...] 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 This was done [...] had what sounds like an EGD in [place] about 15 months ago with what sounds like some gastritis. Otherwise his past medical history seems to include prostate hypertrophy. Social history: He does smoke a cigar daily after dinner. In the past he smoked0.25 of a pack per day of cigarettes. He does drink wine daily with dinner. Heis mainly retired from [employer] here in [place]. He has continued to do other jobsever since his assisted. Family history: A sister of an unspecified cancer. Another sibling ofwhat sounds like acute leukemia. Review of Systems Review of Systems Review of systems: 10 systems are reviewed and are negative except as mentioned elsewhere in the documentation. [facility] Medical History (Updated 04/28/23 @ 17:35 [...] unit subcut HS 04/28/23 [History Confirmed 04/28/23] bisppi-iqvsmyxu-bwfeqpt 24,000-76,000-120,000 unit capsule,delayed rel (Creon) 2cap PO [...] % (Auto) 14.8 % (.) 04/28/23 13:20 Flathead % (Auto) 9.3 % (.) 04/28/23 13:20 Eos % (Auto) 0.5 % (.) 04/28/23 13:20 Baso % (Auto) 0.4 % (.) 04/28/23 13:20 Nucleat RBC Rel Count 0.1 /100 WBC (0-0.5) 04/28/23 13:20 Neut # (Auto) 7.3 x10E3/uL (1.8-7.7) 04/28/23 13:20 Lymph # (Auto) 1.4 x10E3/uL (1.00-4.8) 04/28/23 13:20 [place] # (Auto) 0.9 x10E3/uL (0.0-0.8) H 04/28/23 [...] pH 6.5 (5.0-9.0) 04/28/23 15:00 Ur Specific Clif[place] 1.009 (1.001-1.030) 04/28/23 15:00 Urine Protein Negative [...] did order an echocardiogram but the echocardiogram golf technician has likely gone home for the [...] days): 5 Documented By: Sushant Cordon DO 1721 Signed By: <Electronically signed by Sushant Cordon, > 04/28/23 1740 [facility] Work Phone: 1(352) 294-175006-29-2022 History of Present illness Narrative* Courtney Singh - 01/07/2022 12:25 PM EDT CLINICAL PHARMACY NOTE: MEDS TO BEDS Total # of Prescriptions Filled: 3 The following medications were delivered to the patient: Sucralfate susp Amlodipine Pantoprazole Additional Documentation: Pharmacy dispensed all we had of the Sucralfate susp- will transfer the rest to the [facility] in [place], [place] $8.61 collected via clover * Jose [...] GLUCOSE 155* 74 71 COAGS: Recent Labs 01/02/221856 PROT 6.4 INR 1.2 Viki Donovan, DO 01/03/22, 7:41 AM Attestation signed by Jose [...] 01/03/2022 3:25 PM EDT Occupational Therapy Facility/Department: [address] Occupational Therapy Initial Assessment Name: Ashwini Vickers : 1935 Date of Service: 01/03/2022 Chief Complaint Patient presents with Abdominal Pain ulcer Discharge Recommendations: Patient would benefit from continued therapy after discharge OT Equipment Recommendations Equipment Needed: Yes Mobility Devices: ADL Assistive Devices ADL Assistive Devices: Package Liner;Long-handled Sponge;Long-handled Shoe Horn;Sock- Aid Hard;Grab Bars -shower [...] Ambulation Assistance: Independent Transfer Assistance: Independent Active Office Engineer: Yes Mode of Transportation: [employer] Occupation: Retired Type of Occupation: Reports he has retired 4-5 times. Works on [employer] sometimes now debo wants. Deskarmaing. Use to work for [employer]. Leisure & [...] 01/03/2022 12:40 PM EDT Physical Therapy Facility/Department: [address] [facility] Therapy Initial Assessment Name: Ashwini Vickers [...] Ambulation Assistance: Independent Transfer Assistance: Independent Active Office Engineer: Yes Mode of Transportation: SUV Occupation: Retired Type of Occupation: Reports he has retired 4-5 times. 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 Vital signs [...] 935 [Urine:700; Drains:210; Blood:25] Drain/tube output: In: 7.5 [I.V.:1757.1] Out: 935 [Urine:700; Drains:210] LAB: CBC: [...] 01/03/2022 12:19 AM EDT Assessment forms from [place] note that pt stated he has bed bugs at home and although they have treated the house, they have not been able to get rid of them. Pt did not have any belongings transferred with him from the OR. [facility] [employer] Work Phone: consult note Author Tru Briceno [facility] May 03, 2023 3:17pm Note Date/Time May 03, 2023 2 :59pm [facility] [address] [place] [address] Physiatry (Rehab) Consult Note Signed Patient: Ashwini Vickers MR#: [id number] : 1935 Acct:[id number] Age/Sex: 88 / M Adm Date: 3 Loc: 4N Room: [address] [place] [address] Type: ADM IN Attending Dr: Humberto Diaz MD Copies to: MD Humberto Mendieta MD Robert J Vaschak, DO~ Etiologic Dx/Impairment [...] unless noted below or in HPI [facility] Medical History BPH (benign prostatic hyperplasia) [...] unit subcut HS 04/28/23 [History Confirmed 04/28/23] kkrhbz-cehtxekl-vqiiapf 24,000-76,000-120,000 unit capsule,delayed rel (Creon) 2cap PO [...] bisacodyl 10 mg rectal suppository 10 mg CO DAILY PRN Constipation #0 ea 05/03/23 [Rx] [...] aspart) See Protocol subcut TID.WITH.MEALS #0 mL 05/03/23 [Rx] insulin glargine 100 unit/mL (3 mL) [...] Code(s): I25.10 - Atherosclerotic heart disease of [place] vie[place] coronary artery without angina pectoris Status: Acute [...] at least 3 times weekly encounters with local government legislator for medical management and for plan of care review / changes. Plan: I completed a substantive portion of this encounter, the medical decision making portion of this note in its entirety, including Allied health note review, nursing note review, service delivery consultant note review, discussion with nursing and case management, and more than 50% of my time was spent on counseling and coordination of care, time spent 65 minutes Patient was personally seen by me, Dr. Briceno, on the day of encounter, reviewed the history and the relevant portions of the chart, including current orders, allied health and service delivery consultant notes, labs/imaging and performed smyth elements of exam and I formulated the plan of care and facilitated the medical decision making. Documented By: Tru Briceno MD 05/03/23 1455 Signed By: <Electronically signed by Tru Briceno MD> 05/03/23 5870 [facility] Work Phone: Discharge summary Author Humberto Diaz [facility] May 03, 2023 2:54pm Note Date/Time May 03, 2023 2 :39pm [facility] [address] [place] [address] Discharge Summary Signed Patient: Ashwini Vickers MR#: [id number] : 1935 Acct:[id number] Age/Sex: 88 / M Adm Date: 3 Loc: Room: [address] [place] [address]: Humberto Diaz MD Copies to: [...] Discharge Plan Discharge Plan Patient Disposition: Rehab [facility] Diet: Diabetic Additional Instructions: Rehab to manage: [...] high armed straight-backed chair. -May use toilet recep on commode. -Continue to use walker or [...] OTHER -Any problems- Call the office at [phone] or return to Emergency Room. -If you are having excessive or persistent pain, swelling, fever (oral temp >101), yellow-green foul smelling drainage or bleeding from incision, excessive redness of incision, nausea, vomiting, or any other problems, you should first call your surgeon at [phone] for advice. If you are unable to [...] 0RF bisacodyl 10 mg Suppository 10 mg CO DAILY PRN (Reason: Constipation) Qty: 0 0RF [...] (call at discharge from Rehab to see Oncology Rn for future ANGIOPLASTY PROCEDURE) Marie Castro DO [...] <Electronically signed by Humberto Diaz MD> 05/03/23 4264 [facility] Work Phone: Evaluation note* Diagnosis Perforated [...] uncontrolled, or unspecified documented in this encounter [facility] Work Phone: evaluation note* Diagnosis Onset Date Resolution Status Abnormal EKG acute Closed intertrochanteric fracture of right hip acute Elevated troponin acute [facility] Work Phone: evaluation note* Diagnosis Onset Date Resolution Status Abnormal EKG acute Closed intertrochanteric fracture of right hip acute Diabetes acute Elevated troponin acute Impaired mobility and activities of daily living acute Mild left ventricular systolic dysfunction (LVSD) acute Nonsustained monomorphic ventricular tachycardia acute Postoperative pain, acute, hip acute Two-vessel coronary artery disease acute [facility] Work Phone: evaluation note* Diagnosis Onset Date [...] artery disease acute Uncontrolled diabetes mellitus acute [facility] Work Phone: Evaluation note* Diagnosis NSTEMI (non-ST elevated myocardial infarction) ([facility] Primary Acute myocardial infarction, subendocardial infarction, episode of care unspecified Abnormal stress test Other nonspecific abnormal cardiovascular system function study ASHD (arteriosclerotic heart disease) Coronary atherosclerosis of unspecified type of vessel, [place] vie[place] or graft Essential hypertension Unspecified essential hypertension Diabetes mellitus type II, non insulin dependent ([facility]) Type II or unspecified type diabetes mellitus without mention of complication, not stated as uncontrolled Closed fracture of right hip, initial encounter ([facility]) documented in this encounter [facility] Work Phone: Evaluation noteNo InformationNortWell[facility] Other Evaluation note* Diagnosis Onset Date Resolution Status Diabetes acute CAD (coronary artery disease) acute Diabetes acute [facility] Work Phone: Evaluation note* Diagnosis Cardiomyopathy, ischemic- Primary Other specified forms of chronic ischemic heart disease ASHD (arteriosclerotic heart disease) Coronary atherosclerosis of unspecified type of vessel, [place] vie[place] or graft BMI 20.0-20.9, adult Orthopnea documented in this encounter [facility] Work Phone: History general Narrative - Reported* Type Description Date Medical History stage 1 diabetes Surgical History pancreas and spleen removal Surgical History back surgery Surgical History tonsilectomy Surgical History HIP TFN Short 2022 [facility] Other Hospital Discharge instructions* Instructions* Viki Donovan [...] medications with your primary care provider at yourfollow up office vis Follow-up Follow up with your primary care physician in one week. Follow up with Dr. Bueno in 1 week. If you don't already have a scheduled appointment, please call the office at [phone]. Call Your Doctor If Any of the [...] through Care Everywhere. * Surgical Drain Care (Polish) documented in this [facility] Phone: Hospital Discharge instructions Additional Instructions -Code [...] -Dietary supplement: Glucerna 1 container twice a day.[facility] Work Phone: Hospital Discharge instructions Additional [...] mg or rosuvastatin (Crestor) 40mg] [Drug-Eluting Stent (EBKAH) duration] DO NOT discontinue Brilinta/Aspirin during the first few months regardless of what you are advised by your family doctor or pharmacist, without first calling the vest backer who implanted the stent. If you require [...] weight lifting, stair steppers, etc. until the vest backer approves these activities. Check with the vest backer on your first follow-up visit. CALL YOUR PHYSICIAN at [phone]: -If bleeding should occur from the catheter insertion site- apply pressure to the site then immediately call us. -Report any fever, redness, drainage, increased swelling, or firmness at the catheter insertion site. Some bruising or slight swelling may be present at the time of discharge. -Should arm or leg become cold, numb, white, or blue, contact the vest backer immediately. -IF you should experience episodes of [...] is recommended. Please call Central Scheduling at [phone] to schedule your appointment.] The attending vest backer or [facility] nurse clinician should provide you with specific instructions regarding activity, diet, medications, and further follow up for you. Follow the medication instructions provided on your discharge. If the dosages and instructions on this sheet differ from the dosage and instructions on the bottle, follow the instructions on the bottle. [facility] is not responsible for incorrect prescription information provided by the patient during their visit. Do not stop your medications without consulting your health care provider. Please take the list with you to your next doctor's appointment.[facility] Work Phone: Reason for referral (narrative)* Consultation (Routine) - Authorized Specialty Diagnoses / Procedures Referred By Contac t Referred To Contact Cardiology Diagnoses Abnormal stress test ASHD (arteriosclerotic heart disease) NSTEMI (non-ST elevated myocardial infarction) ([facility]) Procedures Follow Up In Cardiology Adrián Davis, DO [address] [facility] [address] [place] [address] Adrián Davis, DO [address] [facility] [address] [place] [address] Referral ID Status Reason Start Date Expiration Date V isits Requested Visits Authorized [id number] Authorized 05/25/2023 05/24/2024 1 1 * Cardiovascular (Routine) - Pending Review Specialty Diagnoses / Procedures Referred By Contac t Referred To Contact Diagnoses Abnormal stress test ASHD (arteriosclerotic heart disease) Procedures ECG 12 Lead Adrián Davis DO [address] [facility] [address], [address] [address] Referral ID Status Reason Start Date Expiration Date V isits Requested Visits Authorized [id number] Pending Review 05/25/2023 05/24/2024 1 1 [facility] Work Phone: Summary Purpose Family [...] section and content) DATE CREATED AUTHOR 06/25/2018 [facility] DATE CREATED AUTHOR AUTHOR'S ORGANIZ ATION 06/21/2019 [facility] DATE CREATED AUTHOR AUTHOR'S ORGANIZ ATION 01/29/[address] [facility] DATE CREATED AUTHOR AUTHOR'S ORGANIZ ATION 06/11/2022 [facility] DATE CREATED AUTHOR AUTHOR'S ORGANIZ ATION 05/31/2023 [facility] EPIC DATE CREATED AUTHOR AUTHOR'S ORGANIZ ATION 06/12/2023 [facility] DATE CREATED AUTHOR AUTHOR'S ORGANIZ ATION 07/02/[address] [facility] DATE CREATED AUTHOR AUTHOR'S ORGANIZ ATION 08/16/2023 [facility] DATE CREATED AUTHOR AUTHOR'S ORGANIZ ATION 08/20/2023 [facility] Reason for Visit (unrecogniz ed section and content) Reason Comments Abdominal Pain ulcer Specialty Diagnoses / Procedures Referred By Contac t Referred To Contact Diagnoses Acute gastric ulcer with perforation (HCC) Perforated viscus Paul Conn, DO [address] [facility] [address] [place] [address] [facility] [address] [place] [address] Referral ID Status Reason Start Date Expiration Date Visits Re quested Visits Authorized [id number] 1 1 Reason Comments Hospital Follow-up [facility] 05/08/2023 Specialty Diagnoses / Procedures Referred By Contac t Referred To Contact Diagnoses Abnormal stress test ASHD (arteriosclerotic heart disease) Procedures ECG 12 Lead Adrián Davis, DO [address] [facility] [address], [address] [address] Referral ID Status Reason Start Date Expiration Date V isits Requested Visits Authorized [id number] Pending Review 05/25/2023 05/24/2024 1 1 Reason Comments Follow-up PCI Specialty Diagnoses / Procedures Referred By Contac t Referred To Contact Cardiology Diagnoses ASHD (arteriosclerotic heart disease) Procedures Follow Up In Cardiology Sammy Wolff, CERTIFIED INDUSTRIAL HYGIENIST-DOZER OPERATOR [address] [facility] [address], [facility] [address] [place] [address] Referral ID Status Reason Start Date Expiration Date V isits Requested Visits Authorized [id number] Authorized 06/23/2023 06/22/2024 1 1 Ordered Prescriptions [...] Geiger, KARIN) 0517 (Given - Provider: Queta Geiger RN)1400 (Due)2200 (Due) amLODIPine (NORVASC) tablet 5 mg [...] refused) 0939 (Not Given - Provider: Leatha Hudson RN - Reason: Patient/family refused) Insulin Pump - [...] Comment: Blood glucose 175 and patient not eating)2000 (Held - Provider: Queta Geiger RN - [...] mL/hr, Administer over 2 Hours, ONCE, On Wed01/05/22 at 0630, For 1 dose, Recommended infusion [...] Aliyah Hanley RN)0558 (Stopped - Provider: Aliyah Hanley RN)1129 (New Bag - Provider: Baljit Saeg RN)1159 (Stopped - Provider: Baljit Sage, KARIN)1655 (New Bag - Provider: Baljit Sage, KARIN)1725 (Stopped - Provider: Baljit Sage, RN)2317 (New Bag - Provider: Queta Geiger RN)2351 (Stopped - Provider: Queta Geiger, KARIN) 0506 (New Bag - Provider: Queta Geiger, RN)0536 (Stopped - Provider: Courtney Yao RN)1104 (New Bag - Provider: Baljit Sage, KARIN)1134 (Stopped - Provider: Baljit Sage, KARIN) pantoprazole (PROTONIX) 40 mg in sodium chloride (PF) 10 mL injection 40 mg, IntraVENous, EVERY 12 HOURS, First dose on Wed01/02/22 at 2300, Reconstitute with 10 mL 0.9 % sodium chloride and administer over at least 2 minutes. 1132 (Given - Provider: Baljit Sage RN)2300 (Given - Provider: Queta Geiger, KARIN) 1100 (Given - Provider: Baljit Sage, KARIN)2355 (Given - Provider: Queta Geiger, KARIN) 0939 (Given - Provider: Leatha Hudson RN)2300 (Due) PARoxetine (PAXIL) tablet 30 mg 30 mg, Oral, EVERY MORNING, First dose on Wed01/05/22 at 0900, Until Discontinued 0940 (Given - Provider: Baljit Sage RN) 0939 (Given - Provider: Baljit Sage, KARIN) 0934 (Given - Provider: Leatha Hudson RN) [...] mL/hr 0740 (New Bag - Provider: Baljit Sage RN)0947 (New Bag - Provider: Baljit Sage [...] KARIN) 0939 (Given - Provider: Baljit Sage RN)1925 (Given - Provider: Queta Geiger, RN) 0938 [...] Aliyah Hanley RN)1134 (Given - Provider: Baljit Sage RN)1759 (Given - Provider: Baljit Sage RN)2306 (Given - Provider: Queta Geiger, KARIN) 0621 (Given - Provider: Queta Geiger, RN)1211 (Given - Provider: Baljit Sage, KARIN)1757 (Given - Provider: Baljit Sage RN)2350 (Given [...] Active Tru Briceno MD Other Provider Active Operating Systems Programmer Relationship Specialty Start Date End Date Marie Castro [facility] [address] [place] [address] PCP - General Internal Medicine 01/07/22 Team [...] RN Other Provider Active Fransisca Bentley , KARIN Other Provider Active Diamond Henry , KARIN Other Provider Active Chris Holm MD Other Provider Active Vivian Zavala , CERTIFIED INDUSTRIAL HYGIENIST Other Provider Active Samantha Wilson , DO Other Provider Active Eric Major MD Other Provider Active Sushant Cordon , DO Other Provider Active Audi Gaming MD Other Provider Active Cecily Keen MD Other Provider Active Nidia Wright , CERTIFIED INDUSTRIAL HYGIENIST Other Provider Active Daniel Reyes MD Other Provider Active Roberto Sevilla MD Other Provider Active Humberto Diaz MD Other Provider Active Marzena Otto MD Other Provider Active Gray Gilliam , DO Other Provider Active Mc Cornejo MD Other Provider Active Raymundo Angeles MD Other Provider Active Marga Mccauley , TITRATOR-C Other Provider Active Indra Guillory MD Other Provider Active David Fonseca MD Other Provider Active Hai Aguilera MD Other Provider Active Esau Corrales MD Other Provider Active Leda Julian , DO Other Provider Active Guevara Mills , DO Other Provider Active Jose Roberto Felder , DO Other Provider Active Anat Marte CERTIFIED INDUSTRIAL HYGIENIST Other Provider Active Warren Gross , DO Other Provider Active Nayeli Jimenez MD Other Provider Active Nicole Wolff CERTIFIED INDUSTRIAL HYGIENIST Other Provider Active Melisa Pimentel , CERTIFIED INDUSTRIAL HYGIENIST Other Provider Active Vidya Robert MD Other Provider Active Howard Burrell MD Other Provider Active Immanuel John , DO Other Provider Active Rosario Murdock APRN Other Provider Active Mauricio Drake , DO Other Provider Active Erma Morillo , KARIN Other Provider Active Operating Systems Programmer Relationship Specialty Start Date End Date Marie Castro, DO [address] [place] [address] PCP - General Internal Medicine 05/18/23 Team Status: Inactive Member Role Status Dates Marie Castro , Primary Care Provider Active Ashwini Conrad MD Attending Provider Active Team Status: Inactive Member Role Status Dates Marie Castro , Primary Care Provider Active Vinnie Rivas PA-C Emergency Provider Active Sushant Cordon , DO Admit Provider Active Ashwini Conrad MD Other Provider Active Chuck Velasco MD Other Provider Active Anat Perez MD Other Provider Active Humberto Diaz MD Attending Provider Active Tru Briceno MD Other Provider Active Team Status: Inactive Member Role Status Dates Marie Castro DO Primary Care Provider Active Federico Davis DO Attending Provider Active Team Status: Inactive Member Role Status Dates Marie Castro , Primary Care Provider Active Herminio Lakhani MD Attending Provider Active Operating Systems Programmer Relationship Specialty Start Date End Date Marie Castro DO [address] [facility] [address] [place] [address] PCP - General Internal Medicine 05/18/23 FOR [...] BE BASED ON THE PRIMARY CLINICAL RECORDS. [employer] [facility] provides no warranty or guarantee of the accuracy [phone] completeness of information in this [id number]
--- OUTSIDE RECORDS SUMMARY | 2023-08-21 18:11 | XMS_ITS | CCD ---
Author Name Unknown Address [address] [facility] [address] [place] [address] Organization [facility] Care Team Providers Care Workforce Planning Analyst Name Role Phone MARINO CASTILLO Unavailable Unavailable [...] Admitting Unavailable MATTHEW, DR SALAZAR Attending Unavailable [facility]ANEY Primary Care Unavailable MATTHEW, DR SALAZAR Consulting Unavailable MATTHEW, DR SALAZAR Admitting Unavailable MATTHEW, DR SALAZAR Attending Unavailable DR SALVADOR NARANJO Primary Care Unavailable MATTHEW, DR SALAZAR Consulting Unavailable DO Marie Castro Primary Care Provider [phone] JO Rivas Emergency Provider DO Sushant Cordon Admit Provider DO Sushant Cordon Attending Provider MD Ashwini Conrad Other Provider MD Chuck Velasco Other Provider MD Anat Perez Other Provider MD Humberto Diaz Attending Provider [phone] MD Tru Briceno Other Provider MD Fredi Medrano Admit Provider MD Fredi Medrano Attending Provider KARIN Rios Other Provider Unavailable KARIN Velazquez Other Provider Unavailable KARIN Angulo Other Provider Unavailable KARIN Hernandez Other Provider Unavailable KARIN Bentley Other Provider Unavailable KARIN Henry Other Provider Unavailable MD Chris Holm Other Provider AMADA Zavala Other Provider [phone] DO Samantha Wilson Other Provider [phone] MD Eric Major Other Provider DO [...] Other Provider MD Nayeli Jimenez Other Provider [phone] AMADA Wolff Other Provider AMADA Pimentel Other Provider MD Vidya Robert Other Provider MD Howard Burrell Other Provider DO Immanuel John Other Provider AMADA Murdock Other Provider DO Vidal Yadontae Other Provider KARIN Morillo Other Provider Unavailable Ashwini Conrad Unavailable Marie Castro DO Primary Care Provider MARIE CASTRO Referring Unavailable MARIE CASTRO Attending Unavailable MARIE CASTRO Referring Unavailable DO Marie Castro Primary Care Provider JO Rivas Emergency Provider DO Sushant Cordon Admit Provider MD Ashwini Conrad Other Provider MD Chuck Velasco Other Provider MD Anat Perez Other Provider MD Humberto Diaz Attending Provider MD Tru Briceno Other Provider MD Fredi Medrano Admit Provider [phone] MD Fredi Medrano Attending Provider KARIN Rios [...] Other Provider MD Audi Gaming Other Provider [phone] MD Cecily Keen Other Provider AMADA [...] Provider DO Jose Roberto Felder Other Provider [phone] AMADA Marte Other Provider DO Warren Gross Other Provider MD Nayeli Jimenez Other Provider [phone] AMADA Wolff Other Provider AMADA Pimentel Other Provider MD Vidya Robert Other Provider MD Howard Burrell Other Provider JohnDO Immanuel Other Provider AMADA Murdock Other Provider DO Mauricio Drake Other Provider AKRIN Morillo Other Provider Unavailable MD Ashwini Conrad [...] Consulting Unavailable Fredi Medrano Attending UnavailMarie Armando [facility] Care Unavailable Lois Rios Consulting Unavailable [...] on 01/04/22 at 1500, Until Discontinued amylase 774098 unt / lipase 67953 unt / protease 43674 unt delayed release oral capsule (14 sources) Start: 05-07-2023 take 94325-22723 capsules by mouth once Glmmdm-Glaxtqvr-Wmadcln (Creon) 24,000-76,000 -120,000 unit Capsule,Delayed Release(Dr/Ec) Active 2 CAP PO 3x/Day with meals 120 May 06, 2023 11:00pm Start: 04-28-2023 End: 05-07-2023 take 86170-32549 capsules by mouth three times daily Fizmea-Auuucuig-[place]kp[place] (Creon) 24,000-76,000 -120,000 unit capsule,delayed release(DR/EC) Discontinued 2 CAP PO Three times daily April 27, 2023 11:00pm May 07, 2023 1:27pm take 1 capsule by mo [facility] three times daily at mealtime gowtrt-uameepbv-jmdprvw (CREON) 15950-19846 units delayed release capsule Take 1 capsule by mouth 3 times daily (with meals) 0 Active lipase-protease- amylase (CREON) 50185-01842 units delayed release capsule Take 12,000 Units [...] Supplied) lipase/protease/amylase (CREON ORAL) (2 sources) take 05112 mg by mouth three times daily lipase/protease/amylas [...] 11:00pm May 07, 2023 1:27pm Vitamin D3 3377726 UNIT/GM (4 sources) Vitamin D3 54240 00 UNIT/GM as directed Active Completed/Discontinued Medications [...] 4-6 hrs for 7 days ROSEANN # [id number] Active take 1 tablet by sondra th [...] 05-03-2023 End: 05-03-2023 Bisacodyl Discontinued 10 MG SD Daily 0 May 02, 2023 11:00pm May [...] 5:10pm Start: 05-03-2023 take 2 tablets by [facility] at bedtime Sennosides (Senna Laxative) 8.6 [...] vessel disease; Translations: [Atherosclerotic heart disease of [place] coronary artery without angina pectoris] Onset: 3 [...] 07-27-2023 XR hip RT min 2V(w/wo pelvis)* [facility] [place] [address] XRay Report Signed Patient: Ashwini Vickers MR#: [id number] 353 : 1935 Acct:[id number] Age/Sex: 88 / M ADM Date: 07/27/23 Loc: [facility] Room: Type: [facility] Attending Dr: Herminio Lakhani MD Copies [...] Sofia Rosales M.D.07/27/2023 2:31 PM Dictation Location: [place] [address] Transcribed By: [facility] 07/27/23 1431 Dictated By: Sofia Rosales MD 07/27/23 1428 Signed By: 07/27/23 1431 Normal [facility] Activated partial thrombopla stin time (aPTT) in platelet poor plasma by coagulation aOrdered By: Federico Davis on 07-16-2023 aPTT Coag (PPP) [Time] 30.2 s 25.1-36.5 [facility] Comment on above: A hematocrit value g reater than 55% may lead to inaccurate results in coagulation testing. Patients having hematocrit values >55% require a special collection tube for coagulation studies. Please contact the laboratory at [phone] for redraw instructions. Anisocytosis [Presence] in B lood by Light microscopyOrdered By: Federico Davis on 07-16-2023 Anisocytosis Ql (Bld) Slight Normal [facility] Comment on above: Performed By: #### B UN, SCAN CBC, LYTES ####[facility] [id number] Automated basophil %Ordered By: Federico Davis on 07-16-2023 Basophils/100 WBC (Bld) 0.5 % Normal . [facility] Comment on above: Performed By: #### B UN, SCAN CBC, LYTES ####[address] Automated basophil countOrde red By: Federico Davis on 07-16-2023 Basophils (Bld) [#/Vol] 0.0 10*3/uL Normal 0.0-0.2 [facility] Comment on above: Performed By: #### B UN, SCAN CBC, LYTES ####[address] Automated blood monocyte cou ntOrdered By: Federico Davis on 07-16-2023 Monocytes (Bld) [#/Vol] 1.3 10*3/uL High 0.0-0.8 [facility] Comment on above: Performed By: #### B UN, SCAN CBC, LYTES ####[address] Automated eosinophil %Ordere d By: Federico Davis on 07-16-2023 Eosinophils/100 WBC (Bld) 0.3 % Normal . [facility] Comment on above: Performed By: #### B UN, SCAN CBC, LYTES ####[address] Automated eosinophil countOr dered By: Federico Davis on 07-16-2023 Eosinophils (Bld) [#/Vol] 0.0 10*3/uL Normal 0.0-0.45 [facility] Comment on above: Performed By: #### B UN, SCAN CBC, LYTES ####[address] Automated monocyte %Ordered By: Federico Davis on 07-16-2023 Monocytes/100 WBC (Bld) 15.1 % Normal . [facility] Comment on above: Performed By: #### B UN, SCAN CBC, LYTES ####[address] Automated neutrophil %Ordere d By: Federico Davis on 07-16-2023 Neutrophils/100 WBC (Bld) 75.7 % Normal . [facility] Comment on above: Performed By: #### B UN, SCAN CBC, LYTES ####[place] [id number] [place] [id number] [facility] Carbon dioxide, total [Moles /volume] in Serum or PlasmaOrdered By: Federico Davis on 07-16-2023 CO2 [Moles/Vol] 26.8 mmol/L Normal 21.0-31.0 [facility] Comment on above: Performed By: #### B UN, SCAN CBC, LYTES ####[place] [id number] [facility] Chloride [Moles/volume] in S jihan or PlasmaOrdered By: Federico Davis on 07-16-2023 Chloride [Moles/Vol] 103 mmol/L Normal 98-107 [facility] Comment on above: Performed By: #### B UN, SCAN CBC, LYTES ####[place] [id number] [facility] Coagulation Profileon 2023 aPTT Coag (Bld) [Time] 30.2 s Normal 25.1-36.5 [facility] Comment on above: Result Comment: A he matocrit value greater than 55% may lead to inaccurate results in coagulation testing. Patients having hematocrit values >55% require a special collection tube for coagulation studies. Please contact the laboratory at [phone] for redraw instructions. PERFORMED BY: [address] [place] [id number] PATHOLOGIST BOROUGH COORDINATOR AIRAM MAST M.D. Performed By: #### P P ####[place] [id number] [facility] Creatinineon 07-16-2023 GFR/1.73 sq M.predicted MDRD (S/P/Bld) [Vol rate/Area] mL/min/{1.73_m2} Normal [facility] Comment on above: Result Comment: PERF ORMED BY: [facility] [address] [place] [id number] PATHOLOGIST BOROUGH COORDINATOR AIRAM MAST M.D. Performed By: #### C REAT ####[place] [id number] [facility] Creatinine [Mass/volume] in Serum or PlasmaOrdered By: Federico Davis on 07-16-2023 Creatinine [Mass/Vol] 0.71 mg/dL Normal 0.70-1.30 [facility] Comment on above: Performed By: #### C REAT ####[facility] [id number] [place] [address] [facility] ECG 12 lead ECGon 07-16-2023 ECG 12 lead ECG [facility] Main [place] [id number] Electrocardiograph Report Signed Patient: Ashwini Vickers MR#: [id number] 353 : 1935 Acct:[id number] Age/Sex: 88 / M ADM Date: 07/16/23 Loc: [facility] Room: Type: [facility] SDC Attending Dr: Federico Davis DO Ordering [...] previous ECGs available Confirmed by Chuck Velasco ([id number]) on 07/18/2023 4:16:02 PM Referred By: NO Electronically Signed By:Chuck Velasco Transcribed By: MUS Signed By Chuck Velasco MD 07/18/[address] [facility] ECG 12 lead ECG [facility] Main [address] [address] Electrocardiograph Report Signed Patient: Ashwini Vickers MR#: [id number] 353 : 1935 Acct:[id number] Age/Sex: 88 / M ADM Date: 07/16/23 [...] in Anterior leads Confirmed by Chuck Velasco ([id number]) on 07/18/2023 4:15:51 PM Referred By: Electronically Signed By:Chuck Velasco Transcribed By: MUS Signed By Chuck Velasco MD 07/18/[address] [facility] Erythrocyte distribution wid th [Ratio] by Automated countOrdered By: Federico Davis on 07-16-2023 Erythrocyte distribution width (RBC) [Ratio] 16.5 % High 12.0-14.8 [facility] Comment on above: Performed By: #### B UN, SCAN CBC, LYTES ####[facility] [id number] [place] [id number] [facility] Erythrocytes [#/volume] in B lood by Automated countOrdered By: Federico Davis on 07-16-2023 RBC (Bld) [#/Vol] 4.17 10*6/uL Normal 3.90-5.60 [facility] Comment on above: Performed By: #### B UN, SCAN CBC, LYTES ####[facility] [id number] [place] [id number] [facility] Glucose Glucometer (BldC) [M ass/Vol]Ordered By: Federico Davis on 07-16-2023 Glucose [Mass/Vol] 398 mg/dL [facility] Comment on above: Random Glucose Refer ence Range is dependent on time and content of last meal. Glucose of more than 200 mg/dL in a nonstressed, ambulatory subject supports the diagnosis of Diabetes Mellitus. Glucose Poct Glucometerson 0 07-16-2023 Commemt1 Glu2: Cleaned Meter Normal [facility] Comment on above: Result Comment: PERF ORMED BY: [facility] [address] [place] [id number] PATHOLOGIST BOROUGH COORDINATOR AIRAM MAST M.D. Performed By: #### G LULS ####Point of Care testing, Glucose [Mass/Vol] 398 mg/dL Normal [facility] Comment on above: Result Comment: [place] om Glucose Reference Range is dependent on time and content of last meal. Glucose of more than 200 mg/dL in a nonstressed, ambulatory subject supports the diagnosis of Diabetes Mellitus. Performed By: #### G LULS ####Point of Care testing, Glucose [Mass/Vol] 96 mg/dL Normal [facility] Comment on above: Result Comment: [place] om Glucose Reference Range is dependent on time and content of last meal. Glucose of more than 200 mg/dL in a nonstressed, ambulatory subject supports the diagnosis of Diabetes Mellitus. PERFORMED BY: [facility] [address] [place] [address] PATHOLOGIST BOROUGH COORDINATOR AIRAM MAST M.D. Performed By: #### G LULS #### Point of Care testing , Hematocrit [Volume Fraction] of Blood by Automated countOrdered By: Federico Davis on 07-16-2023 Hematocrit (Bld) [Volume fraction] 33.5 % Low 38.8-50.0 [facility] Comment on above: Performed By: #### B UN, SCAN CBC, LYTES ####[facility] [id number] [place] [address] Hemoglobin [Mass/volume] in BloodOrdered By: Federico Davis on 07-16-2023 Hemoglobin (Bld) [Mass/Vol] 11.0 g/dL Low 13.0-17.0 [facility] Comment on above: Performed By: #### B UN, SCAN CBC, LYTES ####[facility] [address] [place] [address] Hypochromia LM Ql (Bld)Order ed By: Federico Davis on 07-16-2023 Hypochromia Ql (Bld) Marked [facility] INR in Platelet poor plasma by Coagulation assayOrdered By: Federico Davis on 07-16-2023 INR Coag (PPP) [Relative time] 1.1 {INR} Normal [facility] Comment on above: INR Therapeutic Rang [...] - 4.5 Performed By: #### P P ####[address] Leukocytes [#/volume] correc robert for nucleated erythrocytes in Blood by Automated counOrdered By: Federico Davis on 07-16-2023 WBC corrected for nucl RBC Auto (Bld) [#/Vol] 8.4 10*3/uL 4.1-10.5 [facility] Leukocytes [#/volume] in Blo od by Automated countOrdered By: Federico Davis on 07-16-2023 WBC (Bld) [#/Vol] 8.4 10*3/uL Normal 4.1-10.5 [facility] Comment on above: Performed By: #### B UN, SCAN CBC, LYTES ####[address] Lymphocytes [#/volume] in Bl ood by Automated countOrdered By: Federico Davis on 07-16-2023 Lymphocytes (Bld) [#/Vol] 0.7 10*3/uL Low 1.00-4.8 [facility] Comment on above: Performed By: #### B UN, SCAN CBC, LYTES ####[address] Lymphocytes/100 leukocytes i n Blood by Automated countOrdered By: Federico Davis on 07-16-2023 Lymphocytes/100 WBC (Bld) 8.4 % Normal . [facility] Comment on above: Performed By: #### B UN, SCAN CBC, LYTES ####[facility] Sms[address] MCH [Entitic mass] by Automa robert countOrdered By: Federico Davis on 07-16-2023 MCH (RBC) [Entitic mass] 26.4 pg Low 27.5-35.2 [facility] Comment on above: Performed By: #### B UN, SCAN CBC, LYTES ####[place] [id number] [address] MCHC Auto (RBC) [Mass/Vol]Or dered By: Federico Davis on 07-16-2023 MCHC (RBC) [Mass/Vol] 32.8 g/dL 32.5-35.6 [facility] MCV [Entitic volume] by Auto mated countOrdered By: Federico Davis on 07-16-2023 MCV (RBC) [Entitic vol] 80.4 fL Low 83.5-101 [facility] Comment on above: Performed By: #### B UN, SCAN CBC, LYTES ####[facility] [id number] [place] [address] Macrocytes LM Ql (Bld)Ordere d By: Federico Davis on 07-16-2023 Macrocytes Ql (Bld) Slight [facility] Neutrophils [#/volume] in Bl ood by Automated countOrdered By: Federico Davis on 07-16-2023 Neutrophils (Bld) [#/Vol] 6.3 10*3/uL Normal 1.8-7.7 [facility] Comment on above: Performed By: #### B UN, SCAN CBC, LYTES ####[facility] [id number] No Panel InformationOrdered By: Federico Davis on 07-16-2023 Bedside Glucose Comment Glu2: cleaned meter [facility] Estimated GFR (CKD-EPI) > 60.0 mL/Min [facility] Creatinine Clearance (Chem N/A [facility] Nucleated erythrocytes [Pres ence] in Blood by Automated countOrdered By: Federico Davis on 07-16-2023 Nucleated RBC Auto Ql (Bld) 0.1 /100{WBC} 0-0.5 [facility] Platelet adequacy [Presence] in Blood by Light microscopyOrdered By: Federico Davis on 07-16-2023 Platelets LM Ql (Bld) Normal Normal [facility] Platelet mean volume [Entiti c volume] in Blood by Automated countOrdered By: Federico Davis on 07-16-2023 Platelet mean volume (Bld) [Entitic vol] 10.1 fL Normal 6.6-10.1 [facility] Comment on above: Performed By: #### B UN, SCAN CBC, LYTES ####[facility] Rvd[address] Platelet morphology finding [Identifier] in BloodOrdered By: Federico Davis on 07-16-2023 Platelet morphology finding Nom (Bld) N/A [facility] Platelets Large [Presence] i n Blood by Light microscopyOrdered By: Federico Davis on 07-16-2023 Platelets Large LM Ql (Bld) Slight [facility] Platelets [#/volume] in Bloo d by Automated countOrdered By: Federico Davis on 07-16-2023 Platelets (Bld) [#/Vol] 243 10*3/uL Normal 150-450 [facility] Comment on above: Performed By: #### B UN, SCAN CBC, LYTES ####[facility] [id number] [place] [address] Poikilocytosis [Presence] in Blood by Light microscopyOrdered By: Federico Davis on 07-16-2023 Poikilocytosis LM Ql (Bld) Moderate [facility] Polychromasia [Presence] in Blood by Light microscopyOrdered By: Federico Davis on 07-16-2023 Polychromasia LM Ql (Bld) Moderate [facility] Potassium [Moles/volume] in Serum or PlasmaOrdered By: Federico Davis on 07-16-2023 Potassium [Moles/Vol] 4.2 mmol/L Normal 3.5-5.1 [facility] Comment on above: Performed By: #### B UN, SCAN CBC, LYTES ####[address] Prothrombin time (PT)Ordered By: Federico Davis on 07-16-2023 PT Coag (PPP) [Time] 12.3 s Normal 9.0-12.9 [facility] Comment on above: A hematocrit value g reater than 55% may lead to inaccurate results in coagulation testing. Patients having hematocrit values >55% require a special collection tube for coagulation studies. Please contact the laboratory at [phone] for redraw instructions. Result Comment: A he matocrit value greater than 55% may lead to inaccurate results in coagulation testing. Patients having hematocrit values >55% require a special collection tube for coagulation studies. Please contact the laboratory at [phone] for redraw instructions. Performed By: #### P P ####[address] RBC morphologyOrdered By: Federico Davis on 07-16-2023 RBC morphology finding Nom (Bld) N/A [facility] Scan and CBCon 07-16-2023 Hypochromasia Marked Normal [facility] Comment on above: Performed By: #### B UN, SCAN CBC, LYTES ####[address] Large Platelets Slight Normal [facility] Comment on above: Result Comment: PERF ORMED BY: [facility] [address] [place] [address] PATHOLOGIST BOROUGH COORDINATOR AIRAM AMST M.D. Performed By: #### B UN, SCAN CBC, LYTES ####[address] Macrocytosis Slight Normal [facility] Comment on above: Performed By: #### B UN, SCAN CBC, LYTES ####[address] Mean Corpuscular HGB Conc 32.8 g/dL Normal 32.5-35.6 [facility] Comment on above: Performed By: #### B UN, SCAN CBC, LYTES ####[place] [address] [address] NRBC% 0.1 /100{WBC} Normal 0-0.5 [facility] Comment on above: Performed By: #### B UN, SCAN CBC, LYTES ####[address] Platelet Estimate Normal Normal Normal [facility] Comment on above: Performed By: #### B UN, SCAN CBC, LYTES ####[place] [address] [address] Poikilocytosis Moderate Normal [facility] Comment on above: Performed By: #### B UN, SCAN CBC, LYTES ####[place] [address] [address] Polychromasia Moderate Normal [facility] Comment on above: Performed By: #### B UN, SCAN CBC, LYTES ####[address] Schistocytes Slight Normal [facility] Comment on above: Performed By: #### B UN, SCAN CBC, LYTES ####[place] [address] [address] Target Cells Moderate Normal [facility] Comment on above: Performed By: #### B UN, SCAN CBC, LYTES ####[address] Schistocytes [Presence] in B lood by Light microscopyOrdered By: Federico Davis on 07-16-2023 Schistocytes LM Ql (Bld) Slight [facility] Serum or plasma anion gap de terminationOrdered By: Federico Davis on 07-16-2023 Anion gap [Moles/Vol] 12.4 mmol/L Normal 6.0-15.0 [facility] Comment on above: Performed By: #### B UN, SCAN CBC, LYTES ####[address] Sodium [Moles/volume] in Ser um or PlasmaOrdered By: Federico Davis on 07-16-2023 Sodium [Moles/Vol] 138 mmol/L Normal 136-145 [facility] Comment on above: Performed By: #### B UN, SCAN CBC, LYTES ####[place] [address] [place] [id number] [facility] Target cellsOrdered By: Federico espino on 07-16-2023 Target cells LM Ql (Bld) Moderate [facility] Urea nitrogen [Mass/volume] in Serum or PlasmaOrdered By: Federico Davis on 07-16-2023 Urea nitrogen [Mass/Vol] 16 mg/dL Normal 7-25 [facility] Comment on above: Result Comment: PERF ORMED BY: [place] [address] PATHOLOGIST BOROUGH COORDINATOR AIRAM MAST M.D. Performed By: #### B UN, SCAN CBC, LYTES ####[place] [id number] [facility] XR femur RT 2V*on 06-11-2023 XR femur RT 2V* [facility] Main [place] [address] [place] [address] XRay Report Signed Patient: Ashwini Vickers MR#: [id number] 353 : 1935 Acct:[id number] Age/Sex: 88 / M ADM Date: 06/11/23 Loc: [facility] Room: Type: [facility] Attending Dr: Ashwini Conrad MD Copies [...] Sheldon Johnson M.D.06/11/2023 2:43 PM Dictation Location: [facility]--12 Transcribed By: ERIBERTO 06/11/231442 Dictated By: Sheldon Johnson DO 06/11/231439 Signed By: 06/11/[address] [facility] Progress Noteson 06-02-2023 Blocker [employer] Polisher Authentication Interface Message Text EMERGENCY TRIAGE, TREAT AND TRANSPORT (ET3) DOCUMENTATION OF TELEHEALTH VISIT Date / Time: 06/02/2023929 Name: Ifeanyi Vickers : 1935 SSN: (Not on file) EMS Agency: [facility] [x] Verbal consent obtained [] [...] Completed by: Herminio Weston MD Normal [employer] XR HIP 2 OR 3 VW [...] anterolateral ST T wave abnormality, abnormal ECG [facility] Work Phone: XR hip RT min 2V(w/wo pelvis )*on 05-21-2023 XR hip RT min 2V(w/wo pelvis)* [facility] Main [place] [address] [place] [address] XRay Report Signed Patient: Ashwini Vickers MR#: [id number] 353 : 1935 Acct:[id number] Age/Sex: 88 / M ADM Date: 05/21/23 Loc: [facility] Room: Type: [facility] Attending Dr: Ashwini Conrad MD Copies [...] Sheldon Johnson M.D.05/21/2023 4:06 PM Dictation Location: [place] [address] Transcribed By: [facility] 05/21/231605 Dictated By: Sheldon Johnson DO 05/21/231603 Signed By: 05/21/231605 [facility] Glucose Glucometer (BldC) [M ass/Vol]Ordered By: Fredi Medrano on 05-08-2023 Glucose [Mass/Vol] 98 mg/dL [facility] Comment on above: Random Glucose Refer ence Range is dependent on time and content of last meal. Glucose of more than 200 mg/dL in a nonstressed, ambulatory subject supports the diagnosis of Diabetes Mellitus. Glucose Poct Glucometerson 1 Commemt1 Glu2: Cleaned Meter [facility] Comment on above: Result Comment: PERF ORMED BY: [facility] [address] [place] [address] PATHOLOGIST BOROUGH COORDINATOR AIRAM MAST M.D. Performed By: #### G LULS #### Point of Care testing , Glucose [Mass/Vol] 98 mg/dL Normal [facility] Comment on above: Result Comment: [place] Glucose Reference Range is dependent on time and content of last meal. Glucose of more than 200 mg/dL in a nonstressed, ambulatory subject supports the diagnosis of Diabetes Mellitus. Performed By: #### G LULS #### Point of Care testing , No Panel InformationOrdered By: Fredi Medrano on 05-08-2023 Bedside Glucose Comment Glu2: cleaned meter [facility] Glucose Poct Glucometerson 1 Glucose [Mass/Vol] 146 mg/dL Normal [facility] Comment on above: Result Comment: [place] om Glucose Reference Range is dependent on time and content of last meal. Glucose of more than 200 mg/dL in a nonstressed, ambulatory subject supports the diagnosis of Diabetes Mellitus. PERFORMED BY: [address] [place] [address] PATHOLOGIST BOROUGH COORDINATOR AIRAM MAST M.D. Performed By: #### G LULS #### Point of Care testing , Commemt1 Glu2: Cleaned Meter [facility] Comment on above: Result Comment: PERF ORMED BY: [address] [place] [id number] PATHOLOGIST BOROUGH COORDINATOR AIRAM MAST M.D. Performed By: #### G LULS ####Point of Care testing, Glucose [Mass/Vol] 164 mg/dL Normal [facility] Comment on above: Result Comment: [place] om Glucose Reference Range is dependent on time and content of last meal. Glucose of more than 200 mg/dL in a nonstressed, ambulatory subject supports the diagnosis of Diabetes Mellitus. Performed By: #### G LULS ####Point of Care testing, Commemt1 Glu2: Cleaned Meter [facility] Comment on above: Result Comment: PERF ORMED BY: [address] [id number] PATHOLOGIST BOROUGH COORDINATOR AIRAM MAST M.D. Performed By: #### G LULS ####Point of Care testing, Glucose [Mass/Vol] 238 mg/dL Normal [facility] Comment on above: Result Comment: [place] Glucose Reference Range is dependent on time and content of last meal. Glucose of more than 200 mg/dL in a nonstressed, ambulatory subject supports the diagnosis of Diabetes Mellitus. Performed By: #### G LULS ####Point of Care testing, Glucose [Mass/Vol] 112 mg/dL Normal [facility] Comment on above: Result Comment: [place] Glucose Reference Range is dependent on time and content of last meal. Glucose of more than 200 mg/dL in a nonstressed, ambulatory subject supports the diagnosis of Diabetes Mellitus. PERFORMED BY: [address] [place] [id number] PATHOLOGIST BOROUGH COORDINATOR AIRAM MAST M.D. Performed By: #### G LULS ####Point of Care testing, Glucose [Mass/Vol] 67 mg/dL Normal [facility] Comment on above: Result Comment: [place] Glucose Reference Range is dependent on time and content of last meal. Glucose of more than 200 mg/dL in a nonstressed, ambulatory subject supports the diagnosis of Diabetes Mellitus. PERFORMED BY: [address] [place] [address] PATHOLOGIST BOROUGH COORDINATOR AIRAM MAST M.D. Performed By: #### G LULS #### Point of Care testing , Glucose Poct Glucometerson 1 Glucose [Mass/Vol] 258 mg/dL Normal [facility] Comment on above: Result Comment: [place] Glucose Reference Range is dependent on time and content of last meal. Glucose of more than 200 mg/dL in a nonstressed, ambulatory subject supports the diagnosis of Diabetes Mellitus. PERFORMED BY: [address] [place] [address] PATHOLOGIST BOROUGH COORDINATOR AIRAM MAST M.D. Performed By: #### G LULS ####Point of Care testing, Commemt1 Glu2: Cleaned Meter Normal [facility] Comment on above: Result Comment: PERF ORMED BY: [address] [place] [id number] PATHOLOGIST BOROUGH COORDINATOR AIRAM MAST M.D. Performed By: #### G LULS ####Point of Care testing, Glucose [Mass/Vol] 308 mg/dL Normal [facility] Comment on above: Result Comment: [place] Glucose Reference Range is dependent on time and content of last meal. Glucose of more than 200 mg/dL in a nonstressed, ambulatory subject supports the diagnosis of Diabetes Mellitus. Performed By: #### G LULS ####Point of Care testing, Commemt1 Glu2: Cleaned Meter Normal [facility] Comment on above: Result Comment: PERF ORMED BY: [address] [place] [address] PATHOLOGIST BOROUGH COORDINATOR AIRAM MAST M.D. Performed By: #### G LULS #### Point of Care testing , Glucose [Mass/Vol] 222 mg/dL Normal [facility] Comment on above: Result Comment: [place] Glucose Reference Range is dependent on time and content of last meal. Glucose of more than 200 mg/dL in a nonstressed, ambulatory subject supports the diagnosis of Diabetes Mellitus. Performed By: #### G LULS #### Point of Care testing , Glucose [Mass/Vol] 114 mg/dL Normal [facility] Comment on above: Result Comment: [place] Glucose Reference Range is dependent on time and content of last meal. Glucose of more than 200 mg/dL in a nonstressed, ambulatory subject supports the diagnosis of Diabetes Mellitus. PERFORMED BY: [facility] [address] [place] [address] PATHOLOGIST BOROUGH COORDINATOR AIRAM MAST M.D. Performed By: #### G LULS ####Point of Care testing, Glucose Poct Glucometerson 1 Glucose [Mass/Vol] 141 mg/dL Normal [facility] Comment on above: Result Comment: [place] Glucose Reference Range is dependent on time and content of last meal. Glucose of more than 200 mg/dL in a nonstressed, ambulatory subject supports the diagnosis of Diabetes Mellitus. PERFORMED BY: [facility] [address] [place] [address] PATHOLOGIST BOROUGH COORDINATOR AIRAM MAST M.D. Performed By: #### G LULS ####Point of Care testing, Glucose [Mass/Vol] 153 mg/dL Normal [facility] Comment on above: Result Comment: [place] Glucose Reference Range is dependent on time and content of last meal. Glucose of more than 200 mg/dL in a nonstressed, ambulatory subject supports the diagnosis of Diabetes Mellitus. PERFORMED BY: [address] [place] [address] PATHOLOGIST BOROUGH COORDINATOR AIRAM MAST M.D. Performed By: #### G LULS #### Point of Care testing , Commemt1 Glu2: Cleaned Meter Normal [facility] Comment on above: Result Comment: PERF ORMED BY: [address] [place] [address] PATHOLOGIST BOROUGH COORDINATOR AIRAM MAST M.D. Performed By: #### G LULS ####Point of Care testing, Glucose [Mass/Vol] 224 mg/dL Normal [facility] Comment on above: Result Comment: [place] om Glucose Reference Range is dependent on time and content of last meal. Glucose of more than 200 mg/dL in a nonstressed, ambulatory subject supports the diagnosis of Diabetes Mellitus. Performed By: #### G LULS ####Point of Care testing, Glucose [Mass/Vol] 106 mg/dL Normal [facility] Comment on above: Result Comment: [place] Glucose Reference Range is dependent on time and content of last meal. Glucose of more than 200 mg/dL in a nonstressed, ambulatory subject supports the diagnosis of Diabetes Mellitus. PERFORMED BY: [address] [place] [address] PATHOLOGIST BOROUGH COORDINATOR AIRAM MAST M.D. Performed By: #### G LULS #### Point of Care testing , Glucose [Mass/Vol] 124 mg/dL Normal [facility] Comment on above: Result Comment: [place] Glucose Reference Range is dependent on time and content of last meal. Glucose of more than 200 mg/dL in a nonstressed, ambulatory subject supports the diagnosis of Diabetes Mellitus. PERFORMED BY: [address] [place] [address] PATHOLOGIST BOROUGH COORDINATOR AIRAM MAST M.D. Performed By: #### G LULS #### Point of Care testing , Alanine aminotransferase [En zymatic activity/volume] in Serum or PlasmaOrdered By: Fredi Medrano on 05-04-2023 ALT [Catalytic activity/Vol] 14 U/L 7-52 [facility] Albumin [Mass/volume] in Ser um or Plasma by Bromocresol green (BCG) dye binding methoOrdered By: Fredi Medrano on 05-04-2023 Albumin BCG dye [Mass/Vol] 2.9 g/dL 3.5-5.7 [facility] Alkaline phosphatase [Enzyma tic activity/volume] in Serum or PlasmaOrdered By: Fredi Medrano on 05-04-2023 ALP [Catalytic activity/Vol] 87 U/L 34-104 [facility] Aspartate aminotransferase [ Enzymatic activity/volume] in Serum or PlasmaOrdered By: Fredi Medrano on 05-04-2023 AST [Catalytic activity/Vol] 20 U/L 13-39 [facility] Basophils Auto (Bld) [#/Vol] Ordered By: Fredi Medrano on 05-04-2023 Basophils (Bld) [#/Vol] 0.0 10*3/uL 0.0-0.2 [facility] Basophils/100 WBC Auto (Bld) Ordered By: Fredi Medrano on 05-04-2023 Basophils/100 WBC (Bld) 0.7 % . [facility] Bilirubin.total [Mass/volume ] in Serum or PlasmaOrdered By: Fredi Medrano on 05-04-2023 Bilirubin [Mass/Vol] 0.5 mg/dL 0.3-1.0 [facility] Calcium [Mass/volume] in Ser um or PlasmaOrdered By: Fredi Medrano on 05-04-2023 Calcium [Mass/Vol] 8.0 mg/dL 8.6-10.3 [facility] Carbon dioxide, total [Moles /volume] in Serum or PlasmaOrdered By: Fredi Medrano on 05-04-2023 CO2 [Moles/Vol] 28.0 mmol/L 21.0-31.0 [facility] Chloride [Moles/volume] in S jihan or PlasmaOrdered By: Fredi Medrano on 05-04-2023 Chloride [Moles/Vol] 102 mmol/L 98-107 [facility] Complete Blood Count Auto Di ffon 05-04-2023 Basophils (Bld) [#/Vol] 0.0 10*3/uL Normal 0.0-0.2 [facility] Comment on above: Result Comment: PERF ORMED BY: [facility] [place] [address] PATHOLOGIST BOROUGH COORDINATOR AIRAM MAST M.D. Performed By: #### G LULS #### Point of Care testing , Basophils/100 WBC (Bld) 0.7 % Normal . [facility] Comment on above: Performed By: #### G LULS #### Point of Care testing , Eosinophils (Bld) [#/Vol] 0.1 10*3/uL Normal 0.0-0.45 [facility] Comment on above: Performed By: #### G LULS #### Point of Care testing , Eosinophils/100 WBC (Bld) 1.5 % Normal . [facility] Comment on above: Performed By: #### G LULS #### Point of Care testing , Erythrocyte distribution width (RBC) [Ratio] 16.8 % High 12.0-14.8 [facility] Comment on above: Performed By: #### G LULS #### Point of Care testing , Hematocrit (Bld) [Volume fraction] 29.3 % Low 38.8-50.0 [facility] Comment on above: Performed By: #### G LULS #### Point of Care testing , Hemoglobin (Bld) [Mass/Vol] 9.7 g/dL Low 13.0-17.0 [facility] Comment on above: Performed By: #### G LULS #### Point of Care testing , Lymphocytes (Bld) [#/Vol] 1.6 10*3/uL Normal 1.00-4.8 [facility] Comment on above: Performed By: #### G LULS #### Point of Care testing , Lymphocytes/100 WBC (Bld) 23.0 % Normal . [facility] Comment on above: Performed By: #### G LULS #### Point of Care testing , MCH (RBC) [Entitic mass] 27.9 pg Normal 27.5-35.2 [facility] Comment on above: Performed By: #### Aileen NATION #### Point of Care testing , MCV (RBC) [Entitic vol] 84.6 fL Normal 83.5-101 [facility] Comment on above: Performed By: #### Aileen SUMMERSLS #### Point of Care testing , Mean Corpuscular HGB Conc 33.0 g/dL Normal 32.5-35.6 [facility] Comment on above: Performed By: #### G RIOS #### Point of Care testing , Monocytes (Bld) [#/Vol] 0.7 10*3/uL Normal 0.0-0.8 [facility] Comment on above: Performed By: #### Aileen NATION #### Point of Care testing , Monocytes/100 WBC (Bld) 9.9 % Normal . [facility] Comment on above: Performed By: #### Aileen SUMMERSLS #### Point of Care testing , Neutrophils (Bld) [#/Vol] 4.6 10*3/uL Normal 1.8-7.7 [facility] Comment on above: Performed By: #### Aileen NATION #### Point of Care testing , Neutrophils/100 WBC (Bld) 64.9 % Normal . [facility] Comment on above: Performed By: #### Aileen NATION #### Point of Care testing , NRBC% 0.2 /100{WBC} Normal 0-0.5 [facility] Comment on above: Performed By: #### Aileen SUMMERSLS #### Point of Care testing , Platelet mean volume (Bld) [Entitic vol] 8.9 fL Normal 6.6-10.1 [facility] Comment on above: Performed By: #### Aileen NATION #### Point of Care testing , Platelets (Bld) [#/Vol] 218 10*3/uL Normal 150-450 [facility] Comment on above: Performed By: #### Aileen NATION #### Point of Care testing , RBC (Bld) [#/Vol] 3.46 10*6/uL Low 3.90-5.60 [facility] Comment on above: Performed By: #### Aileen NATION #### Point of Care testing , WBC (Bld) [#/Vol] 7.2 10*3/uL Normal 4.1-10.5 [facility] Comment on above: Performed By: #### Aileen NATION #### Point of Care testing , Comprehensive Metabolic Pane fabby 05-04-2023 Albumin [Mass/Vol] 2.9 g/dL Low 3.5-5.7 [facility] Comment on above: Performed By: #### Aileen NATION #### Point of Care testing , Albumin/Globulin [Mass ratio] 1.2 {ratio} Normal [facility] Comment on above: Performed By: #### Aileen NATION #### Point of Care testing , ALP [Catalytic activity/Vol] 87 U/L Normal 34-104 [facility] Comment on above: Performed By: #### Aileen NATION #### Point of Care testing , ALT [Catalytic activity/Vol] 14 U/L Normal 7-52 [facility] Comment on above: Performed By: #### Aileen NATION #### Point of Care testing , Anion gap [Moles/Vol] 8.6 mmol/L Normal 6.0-15.0 [facility] Comment on above: Performed By: #### Aileen NATION #### Point of Care testing , AST [Catalytic activity/Vol] 20 U/L Normal 13-39 [facility] Comment on above: Performed By: #### Aileen NATION #### Point of Care testing , Bilirubin [Mass/Vol] 0.5 mg/dL Normal 0.3-1.0 [facility] Comment on above: Performed By: #### Aileen NATION #### Point of Care testing , Calcium [Mass/Vol] 8.0 mg/dL Low 8.6-10.3 [facility] Comment on above: Performed By: #### Aileen NATION #### Point of Care testing , Chloride [Moles/Vol] 102 mmol/L Normal 98-107 [facility] Comment on above: Performed By: #### G LULS #### Point of Care testing , CO2 [Moles/Vol] 28.0 mmol/L Normal 21.0-31.0 [facility] Comment on above: Performed By: #### G KRISTOPHERLS #### Point of Care testing , Creatinine [Mass/Vol] 0.61 mg/dL Low 0.70-1.30 [facility] Comment on above: Performed By: #### G KRISTOPHERLS #### Point of Care testing , Creatinine Clr Calc Pharmacy 62.25 [facility] Comment on above: Performed By: #### G KRISTOPHERLS #### Point of Care testing , GFR/1.73 sq M.predicted MDRD (S/P/Bld) [Vol rate/Area] mL/min/{1.73_m2} [facility] Comment on above: Performed By: #### G KRISTOPHERLS #### Point of Care testing , Globulin (S) [Mass/Vol] 2.5 g/dL [facility] Comment on above: Performed By: #### G KRISTOPHERLS #### Point of Care testing , Glucose [Mass/Vol] 120 mg/dL High 70-100 [facility] Comment on above: Result Comment: [facility] Glucose Reference Range is dependent on time and content of last meal. Glucose of more than 200 mg/dL in a nonstressed, ambulatory subject supports the diagnosis of Diabetes Mellitus. ADA recommended reference range Performed By: #### G KRISTOPHERLS #### Point of Care testing , Potassium [Moles/Vol] 4.6 mmol/L Normal 3.5-5.1 [facility] Comment on above: Performed By: #### G KRISTOPHERLS #### Point of Care testing , Protein [Mass/Vol] 5.4 g/dL Low 6.4-8.9 [facility] Comment on above: Performed By: #### G KRISTOPHERLS #### Point of Care testing , Sodium [Moles/Vol] 134 mmol/L Low 136-145 [facility] Comment on above: Performed By: #### G KRISTOPHERLS #### Point of Care testing , Urea nitrogen [Mass/Vol] 22 mg/dL Normal 7-25 [facility] Comment on above: Performed By: #### G LULS #### Point of Care testing , Creatinine [Mass/volume] in Serum or PlasmaOrdered By: Fredi Medrano on 05-04-2023 Creatinine [Mass/Vol] 0.61 mg/dL 0.70-1.30 [facility] Eosinophils Auto (Bld) [#/Vo l]Ordered By: Fredi Medrano on 05-04-2023 Eosinophils (Bld) [#/Vol] 0.1 10*3/uL 0.0-0.45 [facility] Eosinophils/100 WBC Auto (Bl d)Ordered By: Fredi Medrano on 05-04-2023 Eosinophils/100 WBC (Bld) 1.5 % . [facility] Erythrocyte distribution wid th Auto (RBC) [Ratio]Ordered By: Fredi Medrano on 05-04-2023 Erythrocyte distribution width (RBC) [Ratio] 16.8 % 12.0-14.8 [facility] Globulin Calc (S) [Mass/Vol] Ordered By: Fredi Medrano on 05-04-2023 Globulin (S) [Mass/Vol] 2.5 g/dL [facility] Glucose Poct Glucometerson 1 Glucose [Mass/Vol] 125 mg/dL Normal [facility] Comment on above: Result Comment: [facility] Glucose Reference Range is dependent on time and content of last meal. Glucose of more than 200 mg/dL in a nonstressed, ambulatory subject supports the diagnosis of Diabetes Mellitus. PERFORMED BY: [facility] [address] [place] [address] PATHOLOGIST BOROUGH COORDINATOR AIRAM MAST M.D. Performed By: #### G LULS ####Point of Care testing, Glucose [Mass/Vol] 210 mg/dL Normal [facility] Comment on above: Result Comment: [facility] Glucose Reference Range is dependent on time and content of last meal. Glucose of more than 200 mg/dL in a nonstressed, ambulatory subject supports the diagnosis of Diabetes Mellitus. PERFORMED BY: [facility] [address] [place] [address] PATHOLOGIST BOROUGH COORDINATOR AIRAM MAST M.D. Performed By: #### G LULS ####Point of Care testing, Glucose [Mass/Vol] 213 mg/dL Normal [facility] Comment on above: Result Comment: [place] [facility] Glucose Reference Range is dependent on time and content of last meal. Glucose of more than 200 mg/dL in a nonstressed, ambulatory subject supports the diagnosis of Diabetes Mellitus. PERFORMED BY: [facility] [address] [place] [address] PATHOLOGIST BOROUGH COORDINATOR AIRAM MAST M.D. Performed By: #### G LULS ####Point of Care testing, Commemt1 Glu2: Cleaned Meter Normal [facility] Comment on above: Result Comment: PERF ORMED BY: [facility] [address] [place] [id number] PATHOLOGIST BOROUGH COORDINATOR AIRAM MAST M.D. Performed By: #### G LULS #### Point of Care testing , Glucose [Mass/Vol] 197 mg/dL Normal [facility] Comment on above: Result Comment: [place] [facility] Glucose Reference Range is dependent on time and content of last meal. Glucose of more than 200 mg/dL in a nonstressed, ambulatory subject supports the diagnosis of Diabetes Mellitus. Performed By: #### G LULS #### Point of Care testing , Glucose [Mass/volume] in Ser um or PlasmaOrdered By: Fredi Medrano on 05-04-2023 Glucose [Mass/Vol] 120 mg/dL 70-100 [facility] Comment on above: ADA recommended refe rence rangeRandom Glucose Reference Range is dependent on time and content of last meal. Glucose of more than 200 mg/dL in a nonstressed, ambulatory subject supports the diagnosis of Diabetes Mellitus. Hematocrit Auto (Bld) [Volum e fraction]Ordered By: Fredi Medrano on 05-04-2023 Hematocrit (Bld) [Volume fraction] 29.3 % 38.8-50.0 [facility] Hemoglobin [Mass/volume] in BloodOrdered By: Fredi Medrano on 05-04-2023 Hemoglobin (Bld) [Mass/Vol] 9.7 g/dL 13.0-17.0 [facility] Leukocytes [#/volume] correc robert for nucleated erythrocytes in Blood by Automated counOrdered By: Fredi Medrano on 05-04-2023 WBC corrected for nucl RBC Auto (Bld) [#/Vol] 7.2 10*3/uL 4.1-10.5 [facility] Lymphocytes Auto (Bld) [#/Vo l]Ordered By: Fredi Medrano on 05-04-2023 Lymphocytes (Bld) [#/Vol] 1.6 10*3/uL 1.00-4.8 [facility] Lymphocytes/100 WBC Auto (Bl d)Ordered By: Fredi Medrano on 05-04-2023 Lymphocytes/100 WBC (Bld) 23.0 % . [facility] MCH Auto (RBC) [Entitic mass ]Ordered By: Fredi Medrano on 05-04-2023 MCH (RBC) [Entitic mass] 27.9 pg 27.5-35.2 [facility] MCHC Auto (RBC) [Mass/Vol]Or dered By: Fredi Medrano on 05-04-2023 MCHC (RBC) [Mass/Vol] 33.0 g/dL 32.5-35.6 [facility] MCV Auto (RBC) [Entitic vol] Ordered By: Fredi Medrano on 05-04-2023 MCV (RBC) [Entitic vol] 84.6 fL 83.5-101 [facility] Monocytes Auto (Bld) [#/Vol] Ordered By: Fredi Medrano on 05-04-2023 Monocytes (Bld) [#/Vol] 0.7 10*3/uL 0.0-0.8 [facility] Monocytes/100 WBC Auto (Bld) Ordered By: Fredi Medrano on 05-04-2023 Monocytes/100 WBC (Bld) 9.9 % . [facility] Neutrophils Auto (Bld) [#/Vo l]Ordered By: Fredi Medrano on 05-04-2023 Neutrophils (Bld) [#/Vol] 4.6 10*3/uL 1.8-7.7 [facility] Neutrophils/100 WBC Auto (Bl d)Ordered By: Fredi Medrano on 05-04-2023 Neutrophils/100 WBC (Bld) 64.9 % . [facility] No Panel InformationOrdered By: Fredi Medrano on 05-04-2023 Estimated GFR (CKD-EPI) > 60.0 mL/Min [facility] Creatinine Clearance (Chem 62.25 [facility] Nucleated erythrocytes [Pres ence] in Blood by Automated countOrdered By: Fredi Medrano on 05-04-2023 Nucleated RBC Auto Ql (Bld) 0.2 /100{WBC} 0-0.5 [facility] Platelet mean volume Auto (B ld) [Entitic vol]Ordered By: Fredi Merdano on 05-04-2023 Platelet mean volume (Bld) [Entitic vol] 8.9 fL 6.6-10.1 [facility] Platelets Auto (Bld) [#/Vol] Ordered By: Fredi Medrano on 05-04-2023 Platelets (Bld) [#/Vol] 218 10*3/uL 150-450 [facility] Potassium [Moles/volume] in Serum or PlasmaOrdered By: Fredi Medrano on 05-04-2023 Potassium [Moles/Vol] 4.6 mmol/L 3.5-5.1 [facility] Prealbuminon 05-04-2023 Prealbumin [Mass/Vol] 10.2 mg/dL Low 17.0-34.0 [facility] Comment on above: Result Comment: PERF ORMED BY: [facility] [address] [place] [address] PATHOLOGIST BOROUGH COORDINATOR AIRAM MAST M.D. Performed By: #### G LULS #### Point of Care testing , Prealbumin [Mass/volume] in Serum or PlasmaOrdered By: Fredi Medrano on 05-04-2023 Prealbumin [Mass/Vol] 10.2 mg/dL 17.0-34.0 [facility] Protein [Mass/volume] in Ser um or PlasmaOrdered By: Fredi Medrano on 05-04-2023 Protein [Mass/Vol] 5.4 g/dL 6.4-8.9 [facility] RBC Auto (Bld) [#/Vol]Ordere d By: Fredi Medrano on 05-04-2023 RBC (Bld) [#/Vol] 3.46 10*6/uL 3.90-5.60 [facility] Serum or plasma albumin/glob ulin mass ratioOrdered By: Fredi Medrano on 05-04-2023 Albumin/Globulin [Mass ratio] 1.2 {ratio} [facility] Serum or plasma anion gap de terminationOrdered By: Fredi Medrano on 05-04-2023 Anion gap [Moles/Vol] 8.6 mmol/L 6.0-15.0 [facility] Sodium [Moles/volume] in Ser um or PlasmaOrdered By: Fredi Medrano on 05-04-2023 Sodium [Moles/Vol] 134 mmol/L 136-145 [facility] Urea nitrogen [Mass/volume] in Serum or PlasmaOrdered By: Fredi Medrano on 05-04-2023 Urea nitrogen [Mass/Vol] 22 mg/dL 7-25 [facility] WBC Auto (Bld) [#/Vol]Ordere d By: Fredi Medrano on 05-04-2023 WBC (Bld) [#/Vol] 7.2 10*3/uL 4.1-10.5 [facility] Cholesterol [Mass/volume] in Serum or PlasmaOrdered By: Anat Perez on 05-03-2023 Cholesterol [Mass/Vol] 98 mg/dL 140-200 [facility] Comment on above: Chol less than 200 m g/dl low riskChol 201-239 mg/dl borderline riskChol 240 mg/dl and greater high risk Cholesterol in LDL Calc [Mas s/Vol]Ordered By: Anat Perez on 05-03-2023 Cholesterol in LDL [Mass/Vol] 46 mg/dL 0-100 [facility] Comment on above: LDL ATP III CLASSIFI CATIONLDL less than 100 mg/dL OptimalLDL 100-129 mg/dL Near or above optimalLDL 130-159 mg/dL Borderline highLDL 160-189 mg/dL HighLDL greater than 189 mg/dL Very high Cholesterol in VLDL Calc [Ma ss/Vol]Ordered By: Anat Perez on 05-03-2023 Cholesterol in VLDL [Mass/Vol] 12 mg/dL [facility] Glucose Glucometer (BldC) [M ass/Vol]Ordered By: Humberto Diaz on 05-03-2023 Glucose [Mass/Vol] 388 mg/dL [facility] Comment on above: Random Glucose Refer ence Range is dependent on time and content of last meal. Glucose of more than 200 mg/dL in a nonstressed, ambulatory subject supports the diagnosis of Diabetes Mellitus. Glucose Poct Glucometerson 1 Glucose [Mass/Vol] 385 mg/dL Normal [facility] Comment on above: Result Comment: [place] om Glucose Reference Range is dependent on time and content of last meal. Glucose of more than 200 mg/dL in a nonstressed, ambulatory subject supports the diagnosis of Diabetes Mellitus. PERFORMED BY: [facility] [address] [facility] [place] [address] PATHOLOGIST BOROUGH COORDINATOR AIRAM MAST M.D. Performed By: #### G LULS ####Point of Care testing, Glucose [Mass/Vol] 379 mg/dL Normal [facility] Comment on above: Result Comment: [place] om Glucose Reference Range is dependent on time and content of last meal. Glucose of more than 200 mg/dL in a nonstressed, ambulatory subject supports the diagnosis of Diabetes Mellitus. PERFORMED BY: [facility] [address] [facility] [place] [address] PATHOLOGIST BOROUGH COORDINATOR AIRAM MAST M.D. Performed By: #### G LULS ####Point of Care testing, Glucose [Mass/Vol] 388 mg/dL Normal [facility] Comment on above: Result Comment: [place] om Glucose Reference Range is dependent on time and content of last meal. Glucose of more than 200 mg/dL in a nonstressed, ambulatory subject supports the diagnosis of Diabetes Mellitus. PERFORMED BY: [facility] [address] [facility]. [place] [id number] PATHOLOGIST BOROUGH COORDINATOR AIRAM MAST M.D. Performed By: #### G LULS #### Point of Care testing , Glucose [Mass/Vol] 310 mg/dL Normal [facility] Comment on above: Result Comment: [facility] Glucose Reference Range is dependent on time and content of last meal. Glucose of more than 200 mg/dL in a nonstressed, ambulatory subject supports the diagnosis of Diabetes Mellitus. PERFORMED BY: [facility] [address] [place] [id number] PATHOLOGIST BOROUGH COORDINATOR AIRAM MAST M.D. Performed By: #### G LUMARYA #### Point of Care testing , Lipid Panelon 05-03-2023 Cholesterol [Mass/Vol] 98 mg/dL Low 140-200 [facility] Comment on above: Result Comment: Chol less than 200 mg/dl low risk Chol 201-239 mg/dl borderline risk Chol 240 mg/dl and greater high risk Performed By: #### L IPID ####[facility] [id number] [place] [id number] [facility] Cholesterol in HDL [Mass/Vol] 39 mg/dL Normal 23-92 [facility] Comment on above: Result Comment: HDL CHOL ATP-III CLASSIFICATION Cardiovascular Risk HDL > or equal to 60 mg/dL LOW HDL < 40 mg/dL HIGH Performed By: #### L IPID ####[address] [address] [facility] Cholesterol.total/Cho lesterol in HDL [Mass ratio] 2.5 {ratio} Normal <5.0 [facility] Comment on above: Result Comment: PERF ORMED BY: [facility] [address] [place] [id number] PATHOLOGIST BOROUGH COORDINATOR AIRAM MAST M.D. Performed By: #### L IPID ####[facility] [id number] [place] [address] [place] LDL Cholesterol,Calculate d 46 mg/dL Normal 0-100 [facility] Comment on above: Result Comment: LDL ATP III CLASSIFICATION LDL less than 100 mg/dL Optimal LDL 100-129 mg/dL Near or above optimal LDL 130-159 mg/dL Borderline high LDL 160-189 mg/dL High LDL greater than 189 mg/dL Very high Performed By: #### L IPID ####[facility] [id number] Triglyceride w/Reflex 64 mg/dL Normal 0-149 [facility] Comment on above: Result Comment: TRIG ATP III CLASSIFICATION TRIG less than 150 mg/dL Normal TRIG 150-199 mg/dL Borderline high TRIG 200-500 mg/dL High TRIG greater than 500 mg/dL Very high Standard traceable to the Center for Disease Conrtrol and Prevention (CDC) test method. Performed By: #### L IPID ####[facility] [id number] VLDL CHOLESTEROL 12 mg/dL Normal [facility] Comment on above: Performed By: #### L IPID ####[facility] [id number] [address] Serum or plasma high density lipoprotein (HDL) cholesterol measurementOrdered By: Anat Perez on 05-03-2023 Cholesterol in HDL [Mass/Vol] 39 mg/dL [facility] Comment on above: HDL CHOL ATP-III CLA SSIFICATION Cardiovascular RiskHDL > or equal to 60 mg/dL LOWHDL < 40 mg/dL HIGH Serum or plasma total choles terol/high density lipoprotein (HDL) cholesterol mass ratOrdered By: Anat Perez on 05-03-2023 Cholesterol.total/Cho lesterol in HDL [Mass ratio] 2.5 {ratio} <5.0 [facility] Triglyceride [Mass/volume] i n Serum or PlasmaOrdered By: Anat Perez on 05-03-2023 Triglyceride [Mass/Vol] 64 mg/dL 0-149 [facility] Comment on above: TRIG ATP III CLASSIF ICATIONTRIG less than 150 mg/dL NormalTRIG 150-199 mg/dL Borderline highTRIG 200-500 mg/dL High TRIG greater than 500 mg/dL Very highStandard traceable to the Center for Disease Conrtrol and Prevention (CDC) test method. Basic Metabolic Panelon 04-12 Anion gap [Moles/Vol] 8.1 mmol/L Normal 6.0-15.0 [facility] Comment on above: Performed By: #### B MP, CBC, LIPID ####[place] [id number] [address] Calcium [Mass/Vol] 8.0 mg/dL Low 8.6-10.3 [facility] Comment on above: Performed By: #### B MP, CBC, LIPID ####[place] [id number] [facility] Chloride [Moles/Vol] 97 mmol/L Low 98-107 [facility] Comment on above: Performed By: #### B MP, CBC, LIPID ####[place] [id number] [address] CO2 [Moles/Vol] 30.1 mmol/L Normal 21.0-31.0 [facility] Comment on above: Performed By: #### B MP, CBC, LIPID ####[address] Creatinine [Mass/Vol] 0.86 mg/dL Normal 0.70-1.30 [facility] Comment on above: Performed By: #### B MP, CBC, LIPID ####[address] Creatinine Clr Calc Pharmacy 59.22 [facility] Comment on above: Performed By: #### B MP, CBC, LIPID ####[address] GFR/1.73 sq M.predicted MDRD (S/P/Bld) [Vol rate/Area] mL/min/{1.73_m2} [facility] Comment on above: Performed By: #### B MP, CBC, LIPID ####[address] Glucose [Mass/Vol] 87 mg/dL Normal 70-100 [facility] Comment on above: Result Comment: [facility] Glucose Reference Range is dependent on time and content of last meal. Glucose of more than 200 mg/dL in a nonstressed, ambulatory subject supports the diagnosis of Diabetes Mellitus. ADA recommended reference range Performed By: #### B MP, CBC, LIPID ####[facility] [id number] Potassium [Moles/Vol] 4.2 mmol/L Normal 3.5-5.1 [facility] Comment on above: Performed By: #### B MP, CBC, LIPID ####[facility] [id number] [address] Sodium [Moles/Vol] 131 mmol/L Low 136-145 [facility] Comment on above: Performed By: #### B MP, CBC, LIPID ####[facility] [id number] [address] Urea nitrogen [Mass/Vol] 21 mg/dL Normal 7-25 [facility] Comment on above: Performed By: #### B MP, CBC, LIPID ####[facility] [id number] [address] Basophils Auto (Bld) [#/Vol] Ordered By: Sushant Cordon on 05-02-2023 Basophils (Bld) [#/Vol] 0.0 10*3/uL 0.0-0.2 [facility] Basophils/100 WBC Auto (Bld) Ordered By: Sushant Cordon on 05-02-2023 Basophils/100 WBC (Bld) 0.1 % . [facility] Calcium [Mass/volume] in Ser um or PlasmaOrdered By: Sushant Cordon on 05-02-2023 Calcium [Mass/Vol] 8.0 mg/dL 8.6-10.3 [facility] Carbon dioxide, total [Moles /volume] in Serum or PlasmaOrdered By: Sushant Cordon on 05-02-2023 CO2 [Moles/Vol] 30.1 mmol/L 21.0-31.0 [facility] Chloride [Moles/volume] in S jihan or PlasmaOrdered By: Sushant Cordon on 05-02-2023 Chloride [Moles/Vol] 97 mmol/L 98-107 [facility] Complete Blood Count Auto Di ffon 05-02-2023 Basophils (Bld) [#/Vol] 0.0 10*3/uL Normal 0.0-0.2 [facility] Comment on above: Result Comment: PERF ORMED BY: [facility] [address] [place] [address] PATHOLOGIST BOROUGH COORDINATOR AIRAM MAST M.D. Performed By: #### B MP, CBC, LIPID ####[place] [id number] [address] Basophils/100 WBC (Bld) 0.1 % Normal . [facility] Comment on above: Performed By: #### B MP, CBC, LIPID ####[place] [id number] [address] Eosinophils (Bld) [#/Vol] 0.1 10*3/uL Normal 0.0-0.45 [facility] Comment on above: Performed By: #### B MP, CBC, LIPID ####[address] Eosinophils/100 WBC (Bld) 0.8 % Normal . [facility] Comment on above: Performed By: #### B MP, CBC, LIPID ####[address] Erythrocyte distribution width (RBC) [Ratio] 17.0 % High 12.0-14.8 [facility] Comment on above: Performed By: #### B MP, CBC, LIPID ####[address] Hematocrit (Bld) [Volume fraction] 27.8 % Low 38.8-50.0 [facility] Comment on above: Performed By: #### B MP, CBC, LIPID ####[place] [id number] [facility] Hemoglobin (Bld) [Mass/Vol] 9.3 g/dL Low 13.0-17.0 [facility] Comment on above: Performed By: #### B MP, CBC, LIPID ####[place] [id number] [address] Lymphocytes (Bld) [#/Vol] 1.2 10*3/uL Normal 1.00-4.8 [facility] Comment on above: Performed By: #### B MP, CBC, LIPID ####[place] [id number] [facility] Lymphocytes/100 WBC (Bld) 13.7 % Normal . [facility] Comment on above: Performed By: #### B MP, CBC, LIPID ####[address] MCH (RBC) [Entitic mass] 28.3 pg Normal 27.5-35.2 [facility] Comment on above: Performed By: #### B MP, CBC, LIPID ####[address] MCV (RBC) [Entitic vol] 84.2 fL Normal 83.5-101 [facility] Comment on above: Performed By: #### B MP, CBC, LIPID ####[address] Mean Corpuscular HGB Conc 33.6 g/dL Normal 32.5-35.6 [facility] Comment on above: Performed By: #### B MP, CBC, LIPID ####[address] Monocytes (Bld) [#/Vol] 1.2 10*3/uL High 0.0-0.8 [facility] Comment on above: Performed By: #### B MP, CBC, LIPID ####[address] Monocytes/100 WBC (Bld) 13.5 % Normal . [facility] Comment on above: Performed By: #### B MP, CBC, LIPID ####[address] Neutrophils (Bld) [#/Vol] 6.2 10*3/uL Normal 1.8-7.7 [facility] Comment on above: Performed By: #### B MP, CBC, LIPID ####[place] [id number] [facility] Neutrophils/100 WBC (Bld) 71.9 % Normal . [facility] Comment on above: Performed By: #### B MP, CBC, LIPID ####[place] [address] [place] [id number] [facility] NRBC% 0.0 /100{WBC} Normal 0-0.5 [facility] Comment on above: Performed By: #### B MP, CBC, LIPID ####[place] [address] [place] [id number] [facility] Platelet mean volume (Bld) [Entitic vol] 9.3 fL Normal 6.6-10.1 [facility] Comment on above: Performed By: #### B MP, CBC, LIPID ####[address] Platelets (Bld) [#/Vol] 168 10*3/uL Normal 150-450 [facility] Comment on above: Performed By: #### B MP, CBC, LIPID ####[address] RBC (Bld) [#/Vol] 3.29 10*6/uL Low 3.90-5.60 [facility] Comment on above: Performed By: #### B MP, CBC, LIPID ####[place] [id number] [facility] WBC (Bld) [#/Vol] 8.6 10*3/uL Normal 4.1-10.5 [facility] Comment on above: Performed By: #### B MP, CBC, LIPID ####[address] Creatinine [Mass/volume] in Serum or PlasmaOrdered By: Sushant Cordon on 05-02-2023 Creatinine [Mass/Vol] 0.86 mg/dL 0.70-1.30 [facility] Eosinophils Auto (Bld) [#/Vo l]Ordered By: Sushant Cordon on 05-02-2023 Eosinophils (Bld) [#/Vol] 0.1 10*3/uL 0.0-0.45 [facility] Eosinophils/100 WBC Auto (Bl d)Ordered By: Sushant Cordon on 05-02-2023 Eosinophils/100 WBC (Bld) 0.8 % . [facility] Erythrocyte distribution wid th Auto (RBC) [Ratio]Ordered By: Sushant Cordon on 05-02-2023 Erythrocyte distribution width (RBC) [Ratio] 17.0 % 12.0-14.8 [facility] Glucose Poct Glucometerson 1 Glucose [Mass/Vol] 323 mg/dL Normal [facility] Comment on above: Result Comment: [place] Glucose Reference Range is dependent on time and content of last meal. Glucose of more than 200 mg/dL in a nonstressed, ambulatory subject supports the diagnosis of Diabetes Mellitus. [address]FORMED BY: [address] [place] [id number] PATHOLOGIST BOROUGH COORDINATOR AIRAM MAST M.D. Performed By: #### G LULS #### Point of Care testing , Commemt1 Normal [facility] Comment on above: Result Comment: Glu2 : WILL NOTIFY DR/RN PERFORMED BY: [address] [place] [address] PATHOLOGIST BOROUGH COORDINATOR AIRAM MAST M.D. Performed By: #### G LULS ####Point of Care testing, Glucose [Mass/Vol] 427 mg/dL Off scale [facility] Comment on above: Result Comment: [place] om Glucose Reference Range is dependent on time and content of last meal. Glucose of more than 200 mg/dL in a nonstressed, ambulatory subject supports the diagnosis of Diabetes Mellitus. Performed By: #### G LULS ####Point of Care testing, Glucose [Mass/Vol] 376 mg/dL Normal [facility] Comment on above: Result Comment: [place] [facility] Glucose Reference Range is dependent on time and content of last meal. Glucose of more than 200 mg/dL in a nonstressed, ambulatory subject supports the diagnosis of Diabetes Mellitus. PERFORMED BY: [facility] [address] [place] [address] PATHOLOGIST BOROUGH COORDINATOR AIRAM MAST M.D. Performed By: #### G LULS ####Point of Care testing, Glucose [Mass/Vol] 73 mg/dL Normal [facility] Comment on above: Result Comment: [place] Glucose Reference Range is dependent on time and content of last meal. Glucose of more than 200 mg/dL in a nonstressed, ambulatory subject supports the diagnosis of Diabetes Mellitus. PERFORMED BY: [facility] [address] [place] [address] PATHOLOGIST BOROUGH COORDINATOR AIRAM MAST M.D. Performed By: #### G LULS #### Point of Care testing , Glucose [Mass/Vol] 92 mg/dL Normal [facility] Comment on above: Result Comment: [facility] Glucose Reference Range is dependent on time and content of last meal. Glucose of more than 200 mg/dL in a nonstressed, ambulatory subject supports the diagnosis of Diabetes Mellitus. PERFORMED BY: [facility] [address] [place] [address] PATHOLOGIST BOROUGH COORDINATOR AIRAM MAST M.D. Performed By: #### G LULS ####Point of Care testing, Glucose [Mass/volume] in Ser um or PlasmaOrdered By: Sushant Cordon on 05-02-2023 Glucose [Mass/Vol] 87 mg/dL 70-100 [facility] Comment on above: ADA recommended refe rence rangeRandom Glucose Reference Range is dependent on time and content of last meal. Glucose of more than 200 mg/dL in a nonstressed, ambulatory subject supports the diagnosis of Diabetes Mellitus. Hematocrit Auto (Bld) [Volum e fraction]Ordered By: Sushant Cordon on 05-02-2023 Hematocrit (Bld) [Volume fraction] 27.8 % 38.8-50.0 [facility] Hemoglobin [Mass/volume] in BloodOrdered By: Sushant Cordon on 10-22-2023 Hemoglobin (Bld) [Mass/Vol] 9.3 g/dL 13.0-17.0 [facility] Leukocytes [#/volume] correc robert for nucleated erythrocytes in Blood by Automated counOrdered By: Sushant Cordon on 05-02-2023 WBC corrected for nucl RBC Auto (Bld) [#/Vol] 8.6 10*3/uL 4.1-10.5 [facility] Lipid Panelon 05-02-2023 Cholesterol [Mass/Vol] 97 mg/dL Low 140-200 [facility] Comment on above: Result Comment: Chol less than 200 mg/dl low risk Chol 201-239 mg/dl borderline risk Chol 240 mg/dl and greater high risk Performed By: #### B MP, CBC, LIPID ####[place] [address] [place] [id number] [facility] Cholesterol in HDL [Mass/Vol] 43 mg/dL Normal 23-92 [facility] Comment on above: Result Comment: HDL CHOL ATP-III CLASSIFICATION Cardiovascular Risk HDL > or equal to 60 mg/dL LOW HDL < 40 mg/dL HIGH Performed By: #### B MP, CBC, LIPID ####[place] [address] [place] [address] [facility] Cholesterol.total/Cho lesterol in HDL [Mass ratio] 2.3 {ratio} Normal <5.0 [facility] Comment on above: Result Comment: PERF ORMED BY: [facility] [address] [place] [id number] PATHOLOGIST BOROUGH COORDINATOR AIRAM MAST M.D. Performed By: #### B MP, CBC, LIPID ####[place] [address] [place] [address] [facility] LDL Cholesterol,Calculate d 43 mg/dL Normal 0-100 [facility] Comment on above: Result Comment: LDL ATP III CLASSIFICATION LDL less than 100 mg/dL Optimal LDL 100-129 mg/dL Near or above optimal LDL 130-159 mg/dL Borderline high LDL 160-189 mg/dL High LDL greater than 189 mg/dL Very high Performed By: #### B MP, CBC, LIPID ####[place] [address] [place] [id number] [place] Triglyceride w/Reflex 53 mg/dL Normal 0-149 [facility] Comment on above: Result Comment: TRIG ATP III CLASSIFICATION TRIG less than 150 mg/dL Normal TRIG 150-199 mg/dL Borderline high TRIG 200-500 mg/dL High TRIG greater than 500 mg/dL Very high Standard traceable to the Center for Disease Conrtrol and Prevention (CDC) test method. Performed By: #### B MP, CBC, LIPID ####[facility] [id number] VLDL CHOLESTEROL 10 mg/dL Normal [facility] Comment on above: Performed By: #### B MP, CBC, LIPID ####[facility] [id number] [address] Lymphocytes Auto (Bld) [#/Vo l]Ordered By: Sushant Cordon on 05-02-2023 Lymphocytes (Bld) [#/Vol] 1.2 10*3/uL 1.00-4.8 [facility] Lymphocytes/100 WBC Auto (Bl d)Ordered By: Sushant Cordon on 05-02-2023 Lymphocytes/100 WBC (Bld) 13.7 % . [facility] MCH Auto (RBC) [Entitic mass ]Ordered By: Sushant Cordon on 05-02-2023 MCH (RBC) [Entitic mass] 28.3 pg 27.5-35.2 [facility] MCHC Auto (RBC) [Mass/Vol]Or dered By: Sushant Cordon on 05-02-2023 MCHC (RBC) [Mass/Vol] 33.6 g/dL 32.5-35.6 [facility] MCV Auto (RBC) [Entitic vol] Ordered By: Sushant Cordon on 05-02-2023 MCV (RBC) [Entitic vol] 84.2 fL 83.5-101 [facility] Monocytes Auto (Bld) [#/Vol] Ordered By: Sushant Cordon on 05-02-2023 Monocytes (Bld) [#/Vol] 1.2 10*3/uL 0.0-0.8 [facility] Monocytes/100 WBC Auto (Bld) Ordered By: Sushant Cordon on 05-02-2023 Monocytes/100 WBC (Bld) 13.5 % . [facility] Neutrophils Auto (Bld) [#/Vo l]Ordered By: Sushant Cordon on 05-02-2023 Neutrophils (Bld) [#/Vol] 6.2 10*3/uL 1.8-7.7 [facility] Neutrophils/100 WBC Auto (Bl d)Ordered By: Sushant Cordon on 05-02-2023 Neutrophils/100 WBC (Bld) 71.9 % . [facility] No Panel InformationOrdered By: Sushant Cordon on 05-02-2023 Bedside Glucose Comment See comment [facility] Comment on above: Glu2: WILL NOTIFY DR /RN Estimated GFR (CKD-EPI) > 60.0 mL/Min [facility] Creatinine Clearance (Chem 59.22 [facility] Nucleated erythrocytes [Pres ence] in Blood by Automated countOrdered By: Sushant Cordon on 05-02-2023 Nucleated RBC Auto Ql (Bld) 0.0 /100{WBC} 0-0.5 [facility] Platelet mean volume Auto (B ld) [Entitic vol]Ordered By: Sushant Cordon on 05-02-2023 Platelet mean volume (Bld) [Entitic vol] 9.3 fL 6.6-10.1 [facility] Platelets Auto (Bld) [#/Vol] Ordered By: Sushant Cordon on 05-02-2023 Platelets (Bld) [#/Vol] 168 10*3/uL 150-450 [facility] Potassium [Moles/volume] in Serum or PlasmaOrdered By: Sushant Cordon on 05-02-2023 Potassium [Moles/Vol] 4.2 mmol/L 3.5-5.1 [facility] RBC Auto (Bld) [#/Vol]Ordere d By: Sushant Cordon on 05-02-2023 RBC (Bld) [#/Vol] 3.29 10*6/uL 3.90-5.60 [facility] Serum or plasma anion gap de terminationOrdered By: Sushant Cordon on 05-02-2023 Anion gap [Moles/Vol] 8.1 mmol/L 6.0-15.0 [facility] Sodium [Moles/volume] in Ser um or PlasmaOrdered By: Sushant Cordon on 05-02-2023 Sodium [Moles/Vol] 131 mmol/L 136-145 [facility] Urea nitrogen [Mass/volume] in Serum or PlasmaOrdered By: Sushant Cordon on 05-02-2023 Urea nitrogen [Mass/Vol] 21 mg/dL - [facility] WBC Auto (Bld) [#/Vol]Ordere d By: Sushant Cordon on 05-02-2023 WBC (Bld) [#/Vol] 8.6 10*3/uL 4.1-10.5 [facility] Basic Metabolic Panelon 10 Anion gap [Moles/Vol] 8.6 mmol/L Normal 6.0-15.0 [facility] Comment on above: Performed By: #### C BC, BMP, LIPID ####[place] [id number] [address] Calcium [Mass/Vol] 8.0 mg/dL Low 8.6-10.3 [facility] Comment on above: Performed By: #### C BC, BMP, LIPID ####[place] [address] [place] [id number] [facility] Chloride [Moles/Vol] 97 mmol/L Low 98-107 [facility] Comment on above: Performed By: #### C BC, BMP, LIPID ####[facility] [place] [address] [facility] CO2 [Moles/Vol] 32.9 mmol/L High 21.0-31.0 [facility] Comment on above: Performed By: #### C BC, BMP, LIPID ####[facility] [place] [id number] [facility] Creatinine [Mass/Vol] 0.77 mg/dL Normal 0.70-1.30 [facility] Comment on above: Performed By: #### C SHARAN WALKER, LIPID ####[place] [address] [place] [id number] [facility] Creatinine Clr Calc Pharmacy 63.00 [facility] Comment on above: Performed By: #### C DENISE BMP, LIPID ####[place] [address] [address] GFR/1.73 sq M.predicted MDRD (S/P/Bld) [Vol rate/Area] mL/min/{1.73_m2} [facility] Comment on above: Performed By: #### C SHARAN WALKER, LIPID ####[place] [address] [address] Glucose [Mass/Vol] 86 mg/dL Normal 70-100 [facility] Comment on above: Result Comment: [place] Glucose Reference Range is dependent on time and content of last meal. Glucose of more than 200 mg/dL in a nonstressed, ambulatory subject supports the diagnosis of Diabetes Mellitus. ADA recommended reference range Performed By: #### C SHARAN WALKER, LIPID ####[address] Potassium [Moles/Vol] 4.5 mmol/L Normal 3.5-5.1 [facility] Comment on above: Performed By: #### C DENISE BMP, LIPID ####[address] Sodium [Moles/Vol] 134 mmol/L Low 136-145 [facility] Comment on above: Performed By: #### C DENISE BMP, LIPID ####[place] [address] [place] [id number] [facility] Urea nitrogen [Mass/Vol] 17 mg/dL Normal 7-25 [facility] Comment on above: Performed By: #### C BC BMP, LIPID ####[place] [id number] [facility] Complete Blood Count Auto Di ffon 05-01-2023 Basophils (Bld) [#/Vol] 0.0 10*3/uL Normal 0.0-0.2 [facility] Comment on above: Result Comment: PERF ORMED BY: [facility] [address] [place] [address] PATHOLOGIST BOROUGH COORDINATOR AIRAM MAST M.D. Performed By: #### C BC, BMP, LIPID ####[address] Basophils/100 WBC (Bld) 0.3 % Normal . [facility] Comment on above: Performed By: #### C BC, BMP, LIPID ####[address] Eosinophils (Bld) [#/Vol] 0.0 10*3/uL Normal 0.0-0.45 [facility] Comment on above: Performed By: #### C BC, BMP, LIPID ####[address] Eosinophils/100 WBC (Bld) 0.6 % Normal . [facility] Comment on above: Performed By: #### C BC, BMP, LIPID ####[address] Erythrocyte distribution width (RBC) [Ratio] 17.7 % High 12.0-14.8 [facility] Comment on above: Performed By: #### C BC, BMP, LIPID ####[address] Hematocrit (Bld) [Volume fraction] 29.9 % Low 38.8-50.0 [facility] Comment on above: Performed By: #### C BC, BMP, LIPID ####[address] Hemoglobin (Bld) [Mass/Vol] 9.8 g/dL Low 13.0-17.0 [facility] Comment on above: Performed By: #### C BC, BMP, LIPID ####[address] Lymphocytes (Bld) [#/Vol] 1.5 10*3/uL Normal 1.00-4.8 [facility] Comment on above: Performed By: #### C BC, BMP, LIPID ####[address] Lymphocytes/100 WBC (Bld) 16.8 % Normal . [facility] Comment on above: Performed By: #### C BC, BMP, LIPID ####[address] MCH (RBC) [Entitic mass] 27.8 pg Normal 27.5-35.2 [facility] Comment on above: Performed By: #### C BC, BMP, LIPID ####[address] MCV (RBC) [Entitic vol] 84.5 fL Normal 83.5-101 [facility] Comment on above: Performed By: #### C BC, BMP, LIPID ####[address] Mean Corpuscular HGB Conc 32.9 g/dL Normal 32.5-35.6 [facility] Comment on above: Performed By: #### C BC, BMP, LIPID ####[address] Monocytes (Bld) [#/Vol] 1.2 10*3/uL High 0.0-0.8 [facility] Comment on above: Performed By: #### C BC, BMP, LIPID ####[address] Monocytes/100 WBC (Bld) 14.1 % Normal . [facility] Comment on above: Performed By: #### C BC, BMP, LIPID ####[address] Neutrophils (Bld) [#/Vol] 6.0 10*3/uL Normal 1.8-7.7 [facility] Comment on above: Performed By: #### C BC, BMP, LIPID ####[address] [place] [address] [facility] Neutrophils/100 WBC (Bld) 68.2 % Normal . [facility] Comment on above: Performed By: #### C BC, BMP, LIPID ####[facility] [place] [address] [facility] NRBC% 0.1 /100{WBC} Normal 0-0.5 [facility] Comment on above: Performed By: #### C BC, BMP, LIPID ####[address] [place] [address] [facility] Platelet mean volume (Bld) [Entitic vol] 9.5 fL Normal 6.6-10.1 [facility] Comment on above: Performed By: #### C BC, BMP, LIPID ####[address] [place] [address] [facility] Platelets (Bld) [#/Vol] 156 10*3/uL Normal 150-450 [facility] Comment on above: Performed By: #### C BC, BMP, LIPID ####[address] [place] [address] [facility] RBC (Bld) [#/Vol] 3.54 10*6/uL Low 3.90-5.60 [facility] Comment on above: Performed By: #### C BC, BMP, LIPID ####[address] [place] [address] [facility] WBC (Bld) [#/Vol] 8.8 10*3/uL Normal 4.1-10.5 [facility] Comment on above: Performed By: #### C BC, BMP, LIPID ####[address] [address] [facility] Glucose Poct Glucometerson 1 Commemt1 Glu2: Cleaned Meter Normal [facility] Comment on above: Result Comment: PERF ORMED BY: [facility] [address] [place] [address] PATHOLOGIST BOROUGH COORDINATOR AIRAM MAST M.D. Performed By: #### G LULS #### Point of Care testing , Glucose [Mass/Vol] 340 mg/dL Normal [facility] Comment on above: Result Comment: [place] om Glucose Reference Range is dependent on time and content of last meal. Glucose of more than 200 mg/dL in a nonstressed, ambulatory subject supports the diagnosis of Diabetes Mellitus. Performed By: #### G LULS #### Point of Care testing , Glucose [Mass/Vol] 194 mg/dL Normal [facility] Comment on above: Result Comment: [place] om Glucose Reference Range is dependent on time and content of last meal. Glucose of more than 200 mg/dL in a nonstressed, ambulatory subject supports the diagnosis of Diabetes Mellitus. PERFORMED BY: [place] [address] PATHOLOGIST BOROUGH COORDINATOR AIRAM MAST M.D. Performed By: #### G LULS #### Point of Care testing , Commemt1 Glu2: Cleaned Meter [facility] Comment on above: Result Comment: PERF ORMED BY: [place] [address] PATHOLOGIST BOROUGH COORDINATOR AIRAM MAST M.D. Performed By: #### G LULS ####Point of Care testing, Glucose [Mass/Vol] 131 mg/dL Normal [facility] Comment on above: Result Comment: [place] om Glucose Reference Range is dependent on time and content of last meal. Glucose of more than 200 mg/dL in a nonstressed, ambulatory subject supports the diagnosis of Diabetes Mellitus. Performed By: #### G LULS ####Point of Care testing, Commemt1 Glu2: Cleaned Meter [facility] Comment on above: Result Comment: PERF ORMED BY: [place] [address] PATHOLOGIST BOROUGH COORDINATOR AIRAM MAST M.D. Performed By: #### G LULS ####Point of Care testing, Glucose [Mass/Vol] 85 mg/dL Normal [facility] Comment on above: Result Comment: [place] om Glucose Reference Range is dependent on time and content of last meal. Glucose of more than 200 mg/dL in a nonstressed, ambulatory subject supports the diagnosis of Diabetes Mellitus. Performed By: #### G LULS ####Point of Care testing, Glucose [Mass/Vol] 295 mg/dL Normal [facility] Comment on above: Result Comment: [facility] Glucose Reference Range is dependent on time and content of last meal. Glucose of more than 200 mg/dL in a nonstressed, ambulatory subject supports the diagnosis of Diabetes Mellitus. PERFORMED BY: [facility] [address] [place] [id number] PATHOLOGIST BOROUGH COORDINATOR AIRAM MAST M.D. Performed By: #### G RIOS ####Point of Care testing, Lipid Panelon 05-01-2023 Cholesterol [Mass/Vol] 107 mg/dL Low 140-200 [facility] Comment on above: Result Comment: Chol less than 200 mg/dl low risk Chol 201-239 mg/dl borderline risk Chol 240 mg/dl and greater high risk Performed By: #### C BC, BMP, LIPID ####[address] [id number] [facility] Cholesterol in HDL [Mass/Vol] 51 mg/dL Normal 23-92 [facility] Comment on above: Result Comment: HDL CHOL ATP-III CLASSIFICATION Cardiovascular Risk HDL > or equal to 60 mg/dL LOW HDL < 40 mg/dL HIGH Performed By: #### C BC, BMP, LIPID ####[address] [address] [facility] Cholesterol.total/Cho lesterol in HDL [Mass ratio] 2.1 {ratio} Normal <5.0 [facility] Comment on above: Result Comment: PERF ORMED BY: [facility] [address] [place] [address] PATHOLOGIST BOROUGH COORDINATOR AIRAM MAST M.D. Performed By: #### C BC, BMP, LIPID ####[address] [place] [address] [facility] LDL Cholesterol,Calculate d 50 mg/dL Normal 0-100 [facility] Comment on above: Result Comment: LDL ATP III CLASSIFICATION LDL less than 100 mg/dL Optimal LDL 100-129 mg/dL Near or above optimal LDL 130-159 mg/dL Borderline high LDL 160-189 mg/dL High LDL greater than 189 mg/dL Very high Performed By: #### C BC BMP, LIPID ####[facility] [place] [id number] [facility] Triglyceride w/Reflex 30 mg/dL Normal 0-149 [facility] Comment on above: Result Comment: TRIG ATP III CLASSIFICATION TRIG less than 150 mg/dL Normal TRIG 150-199 mg/dL Borderline high TRIG 200-500 mg/dL High TRIG greater than 500 mg/dL Very high Standard traceable to the Center for Disease Conrtrol and Prevention (CDC) test method. Performed By: #### C DENISE BMP, LIPID ####[address] VLDL CHOLESTEROL 6 mg/dL Normal [facility] Comment on above: Performed By: #### C SHARAN WALKER, LIPID ####[address] Activated partial thrombopla stin time (aPTT) in platelet poor plasma by coagulation aOrdered By: Anat Perez on 04-30-2023 aPTT Coag (PPP) [Time] 30.6 s 25.1-36.5 [facility] Comment on above: A hematocrit value g reater than 55% may lead to inaccurate results in coagulation testing. Patients having hematocrit values >55% require a special collection tube for coagulation studies. Please contact the laboratory at [phone] for redraw instructions. B-Type Natriuretic Peptideon 04-30-2023 Natriuretic peptide B (Bld) [Mass/Vol] 523.0 pg/mL [facility] 5-100 [facility] Comment on above: Result Comment: PERF ORMED BY: [facility] [address] [place] [address] PATHOLOGIST BOROUGH COORDINATOR AIRAM MAST M.D. Performed By: #### B MEDICAL INSURANCE CLAIMS SPECIALIST ####[address] [place] [id number] [facility] Natriuretic peptide B (Bld) [Mass/Vol] 630.0 pg/mL High 5-100 [facility] Comment on above: Result Comment: PERF ORMED BY: [facility] [address] [place] [address] PATHOLOGIST BOROUGH COORDINATOR AIRAM MAST M.D. Performed By: #### B MEDICAL INSURANCE CLAIMS SPECIALIST, HS TROP, BMP, PTT, PT, CBC ####[place] [id number] [facility] Basic Metabolic Panelon 10-2 -2022 Anion gap [Moles/Vol] 7.9 mmol/L Normal 6.0-15.0 [facility] Comment on above: Performed By: #### B MEDICAL INSURANCE CLAIMS SPECIALIST, HS TROP, BMP, PTT, PT, CBC ####[address] [place] [id number] [facility] Calcium [Mass/Vol] 8.4 mg/dL Low 8.6-10.3 [facility] Comment on above: Performed By: #### B MEDICAL INSURANCE CLAIMS SPECIALIST, HS TROP, BMP, PTT, PT, CBC ####[place] [id number] [facility] Chloride [Moles/Vol] 96 mmol/L Low 98-107 [facility] Comment on above: Performed By: #### B MEDICAL INSURANCE CLAIMS SPECIALIST, HS TROP, BMP, PTT, PT, CBC ####[place] [id number] [facility] CO2 [Moles/Vol] 33.2 mmol/L High 21.0-31.0 [facility] Comment on above: Performed By: #### B MEDICAL INSURANCE CLAIMS SPECIALIST, HS TROP, BMP, PTT, PT, CBC ####[address] [address] [facility] Creatinine [Mass/Vol] 0.68 mg/dL Low 0.70-1.30 [facility] Comment on above: Performed By: #### B MEDICAL INSURANCE CLAIMS SPECIALIST, HS TROP, BMP, PTT, PT, CBC ####[address] [address] [facility] Creatinine Clr Calc Pharmacy 57.66 Normal [facility] Comment on above: Result Comment: PERF ORMED BY: [facility] [address] [facility] [place] [address] PATHOLOGIST BOROUGH COORDINATOR AIRAM MAST M.D. Performed By: #### B MEDICAL INSURANCE CLAIMS SPECIALIST, HS TROP, BMP, PTT, PT, CBC ####[address] [place] [id number] [facility] GFR/1.73 sq M.predicted MDRD (S/P/Bld) [Vol rate/Area] mL/min/{1.73_m2} Normal [facility] Comment on above: Performed By: #### B MEDICAL INSURANCE CLAIMS SPECIALIST, HS TROP, BMP, PTT, PT, CBC ####[address] [place] [id number] [facility] Glucose [Mass/Vol] 163 mg/dL High 70-100 [facility] Comment on above: Result Comment: [facility] Glucose Reference Range is dependent on time and content of last meal. Glucose of more than 200 mg/dL in a nonstressed, ambulatory subject supports the diagnosis of Diabetes Mellitus. ADA recommended reference range Performed By: #### B MEDICAL INSURANCE CLAIMS SPECIALIST, HS TROP, BMP, PTT, PT, CBC ####[facility] [place] [address] [facility] Potassium [Moles/Vol] 4.1 mmol/L Normal 3.5-5.1 [facility] Comment on above: Performed By: #### B MEDICAL INSURANCE CLAIMS SPECIALIST, HS TROP, BMP, PTT, PT, CBC ####[address] [place] [address] [facility] Sodium [Moles/Vol] 133 mmol/L Low 136-145 [facility] Comment on above: Performed By: #### B MEDICAL INSURANCE CLAIMS SPECIALIST, HS TROP, BMP, PTT, PT, CBC ####[address] [place] [phone] [place] Urea nitrogen [Mass/Vol] 12 mg/dL Normal 7-25 [facility] Comment on above: Performed By: #### B MEDICAL INSURANCE CLAIMS SPECIALIST, HS TROP, BMP, PTT, PT, CBC ####[address] [place] [address] [facility] Anion gap [Moles/Vol] 5.4 mmol/L Low 6.0-15.0 [facility] Comment on above: Performed By: #### C BC, BMP ####[facility] [place] [address] [place] Calcium [Mass/Vol] 8.5 mg/dL Low 8.6-10.3 [facility] Comment on above: Performed By: #### C BC, BMP ####[address] [place] [address] [place] Chloride [Moles/Vol] 98 mmol/L Normal 98-107 [facility] Comment on above: Performed By: #### C BC, BMP ####[address] [place] [address] [place] CO2 [Moles/Vol] 35.0 mmol/L High 21.0-31.0 [facility] Comment on above: Performed By: #### C BC, BMP ####[address] [place] [address] [place] Creatinine [Mass/Vol] 0.71 mg/dL Normal 0.70-1.30 [facility] Comment on above: Performed By: #### C BC, BMP ####[address] [place] [address] [place] Creatinine Clr Calc Pharmacy 57.66 Normal [facility] Comment on above: Result Comment: PERF ORMED BY: [facility] [address] [place] [address] PATHOLOGIST BOROUGH COORDINATOR AIRAM MAST M.D. Performed By: #### C BC, BMP ####[address] [place] [address] [place] GFR/1.73 sq M.predicted MDRD (S/P/Bld) [Vol rate/Area] mL/min/{1.73_m2} [facility] Comment on above: Performed By: #### C BC, BMP ####[facility] [place] [address] [facility] Glucose [Mass/Vol] 72 mg/dL Normal 70-100 [facility] Comment on above: Result Comment: [place] Glucose Reference Range is dependent on time and content of last meal. Glucose of more than 200 mg/dL in a nonstressed, ambulatory subject supports the diagnosis of Diabetes Mellitus. ADA recommended reference range Performed By: #### C BC, BMP ####[address] [place] [address] [facility] Potassium [Moles/Vol] 4.4 mmol/L Normal 3.5-5.1 [facility] Comment on above: Performed By: #### C BC, BMP ####[address] [place] [id number] [facility] Sodium [Moles/Vol] 134 mmol/L Low 136-145 [facility] Comment on above: Performed By: #### C BC, BMP ####[address] [place] [phone] [facility] Urea nitrogen [Mass/Vol] 12 mg/dL Normal 7-25 [facility] Comment on above: Performed By: #### C BC, BMP ####[address] [place] [phone] [facility] Coagulation Profileon 2022 aPTT Coag (Bld) [Time] 29.5 s Normal 25.1-36.5 [facility] Comment on above: Result Comment: A he matocrit value greater than 55% may lead to inaccurate results in coagulation testing. Patients having hematocrit values >55% require a special collection tube for coagulation studies. Please contact the laboratory at [phone] for redraw instructions. PERFORMED BY: [facility] [address] [place] [id number] PATHOLOGIST BOROUGH COORDINATOR AIRAM MAST M.D. Performed By: #### P P ####[place] [id number] [facility] INR Coag (PPP) [Relative time] 1.2 {INR} Normal [facility] Comment on above: Result Comment: INR [...] - 4.5 Performed By: #### P P ####[address] PT Coag (PPP) [Time] 14.8 s High 9.0-12.9 [facility] Comment on above: Result Comment: A he matocrit value greater than 55% may lead to inaccurate results in coagulation testing. Patients having hematocrit values >55% require a special collection tube for coagulation studies. Please contact the laboratory at [phone] for redraw instructions. Performed By: #### P P ####[address] Complete Blood Count Auto Di ffon 04-30-2023 Basophils (Bld) [#/Vol] 0.0 10*3/uL Normal 0.0-0.2 [facility] Comment on above: Result Comment: PERF ORMED BY: [facility] [address] [facility] [place] [address] PATHOLOGIST BOROUGH COORDINATOR AIRAM MAST M.D. Performed By: #### B MEDICAL INSURANCE CLAIMS SPECIALIST, HS TROP, BMP, PTT, PT, CBC ####[address] Basophils/100 WBC (Bld) 0.3 % Normal . [facility] Comment on above: Performed By: #### B MEDICAL INSURANCE CLAIMS SPECIALIST, HS TROP, BMP, PTT, PT, CBC ####[address] Eosinophils (Bld) [#/Vol] 0.0 10*3/uL Normal 0.0-0.45 [facility] Comment on above: Performed By: #### B MEDICAL INSURANCE CLAIMS SPECIALIST, HS TROP, BMP, PTT, PT, CBC ####[address] Eosinophils/100 WBC (Bld) 0.0 % Normal . [facility] Comment on above: Performed By: #### B MEDICAL INSURANCE CLAIMS SPECIALIST, HS TROP, BMP, PTT, PT, CBC ####[address] Erythrocyte distribution width (RBC) [Ratio] 17.8 % High 12.0-14.8 [facility] Comment on above: Performed By: #### B MEDICAL INSURANCE CLAIMS SPECIALIST, HS TROP, BMP, PTT, PT, CBC ####[address] Hematocrit (Bld) [Volume fraction] 35.8 % Low 38.8-50.0 [facility] Comment on above: Performed By: #### B MEDICAL INSURANCE CLAIMS SPECIALIST, HS TROP, BMP, PTT, PT, CBC ####[address] Hemoglobin (Bld) [Mass/Vol] 11.8 g/dL Low 13.0-17.0 [facility] Comment on above: Performed By: #### B MEDICAL INSURANCE CLAIMS SPECIALIST, HS TROP, BMP, PTT, PT, CBC ####[address] Lymphocytes (Bld) [#/Vol] 0.6 10*3/uL Low 1.00-4.8 [facility] Comment on above: Performed By: #### B MEDICAL INSURANCE CLAIMS SPECIALIST, HS TROP, BMP, PTT, PT, CBC ####[address] Lymphocytes/100 WBC (Bld) 5.9 % Normal . [facility] Comment on above: Performed By: #### B MEDICAL INSURANCE CLAIMS SPECIALIST, HS TROP, BMP, PTT, PT, CBC ####[address] MCH (RBC) [Entitic mass] 27.9 pg Normal 27.5-35.2 [facility] Comment on above: Performed By: #### B MEDICAL INSURANCE CLAIMS SPECIALIST, HS TROP, BMP, PTT, PT, CBC ####[address] MCV (RBC) [Entitic vol] 84.7 fL Normal 83.5-101 [facility] Comment on above: Performed By: #### B MEDICAL INSURANCE CLAIMS SPECIALIST, HS TROP, BMP, PTT, PT, CBC ####[address] Mean Corpuscular HGB Conc 32.9 g/dL Normal 32.5-35.6 [facility] Comment on above: Performed By: #### B MEDICAL INSURANCE CLAIMS SPECIALIST, HS TROP, BMP, PTT, PT, CBC ####[address] Monocytes (Bld) [#/Vol] 1.4 10*3/uL High 0.0-0.8 [facility] Comment on above: Performed By: #### B MEDICAL INSURANCE CLAIMS SPECIALIST, HS TROP, BMP, PTT, PT, CBC ####[address] Monocytes/100 WBC (Bld) 14.6 % Normal . [facility] Comment on above: Performed By: #### B MEDICAL INSURANCE CLAIMS SPECIALIST, HS TROP, BMP, PTT, PT, CBC ####[address] Neutrophils (Bld) [#/Vol] 7.4 10*3/uL Normal 1.8-7.7 [facility] Comment on above: Performed By: #### B MEDICAL INSURANCE CLAIMS SPECIALIST, HS TROP, BMP, PTT, PT, CBC ####[address] Neutrophils/100 WBC (Bld) 79.2 % Normal . [facility] Comment on above: Performed By: #### B MEDICAL INSURANCE CLAIMS SPECIALIST, HS TROP, BMP, PTT, PT, CBC ####[address] NRBC% 0.1 /100{WBC} Normal 0-0.5 [facility] Comment on above: Performed By: #### B MEDICAL INSURANCE CLAIMS SPECIALIST, HS TROP, BMP, PTT, PT, CBC ####[address] Platelet mean volume (Bld) [Entitic vol] 9.9 fL Normal 6.6-10.1 [facility] Comment on above: Performed By: #### B MEDICAL INSURANCE CLAIMS SPECIALIST, HS TROP, BMP, PTT, PT, CBC ####[place] [address] Platelets (Bld) [#/Vol] 194 10*3/uL Normal 150-450 [facility] Comment on above: Performed By: #### B MEDICAL INSURANCE CLAIMS SPECIALIST, HS TROP, BMP, PTT, PT, CBC ####[address] RBC (Bld) [#/Vol] 4.23 10*6/uL Normal 3.90-5.60 [facility] Comment on above: Performed By: #### B MEDICAL INSURANCE CLAIMS SPECIALIST, HS TROP, BMP, PTT, PT, CBC ####[place] [address] WBC (Bld) [#/Vol] 9.3 10*3/uL Normal 4.1-10.5 [facility] Comment on above: Performed By: #### B MEDICAL INSURANCE CLAIMS SPECIALIST, HS TROP, BMP, PTT, PT, CBC ####[address] Basophils (Bld) [#/Vol] 0.0 10*3/uL Normal 0.0-0.2 [facility] Comment on above: Result Comment: PERF ORMED BY: [facility] [address] [place] [address] PATHOLOGIST BOROUGH COORDINATOR AIRAM MAST M.D. Performed By: #### C BC, BMP ####[place] [address] [place] Basophils/100 WBC (Bld) 0.4 % Normal . [facility] Comment on above: Performed By: #### C BC, BMP ####[place] [address] [place] Eosinophils (Bld) [#/Vol] 0.1 10*3/uL Normal 0.0-0.45 [facility] Comment on above: Performed By: #### C BC, BMP ####[place] [address] [place] Eosinophils/100 WBC (Bld) 0.6 % Normal . [facility] Comment on above: Performed By: #### C DENISE, BMP ####[place] [id number] [facility] Erythrocyte distribution width (RBC) [Ratio] 18.0 % High 12.0-14.8 [facility] Comment on above: Performed By: #### C BC, BMP ####[place] [id number] [facility] Hematocrit (Bld) [Volume fraction] 33.7 % Low 38.8-50.0 [facility] Comment on above: Performed By: #### C DENISE, BMP ####[address] Hemoglobin (Bld) [Mass/Vol] 11.2 g/dL Low 13.0-17.0 [facility] Comment on above: Performed By: #### C DENISE, BMP ####[address] Lymphocytes (Bld) [#/Vol] 2.0 10*3/uL Normal 1.00-4.8 [facility] Comment on above: Performed By: #### C DENISE, BMP ####[place] [id number] [facility] Lymphocytes/100 WBC (Bld) 22.0 % Normal . [facility] Comment on above: Performed By: #### C DENISE, BMP ####[place] [id number] [facility] MCH (RBC) [Entitic mass] 28.1 pg Normal 27.5-35.2 [facility] Comment on above: Performed By: #### C DENISE, BMP ####[place] [id number] [facility] MCV (RBC) [Entitic vol] 84.7 fL Normal 83.5-101 [facility] Comment on above: Performed By: #### C DENISE, BMP ####[place] [id number] [facility] Mean Corpuscular HGB Conc 33.2 g/dL Normal 32.5-35.6 [facility] Comment on above: Performed By: #### C DENISE, BMP ####[place] [address] [place] [address] [facility] Monocytes (Bld) [#/Vol] 1.5 10*3/uL High 0.0-0.8 [facility] Comment on above: Performed By: #### C DENISE, BMP ####[place] [id number] [facility] Monocytes/100 WBC (Bld) 16.4 % Normal . [facility] Comment on above: Performed By: #### C DENISE, BMP ####[place] [address] [place] [address] [facility] Neutrophils (Bld) [#/Vol] 5.4 10*3/uL Normal 1.8-7.7 [facility] Comment on above: Performed By: #### C DENISE, BMP ####[place] [id number] [facility] Neutrophils/100 WBC (Bld) 60.6 % Normal . [facility] Comment on above: Performed By: #### C DENISE, BMP ####[address] [address] [facility] NRBC% 0.1 /100{WBC} Normal 0-0.5 [facility] Comment on above: Performed By: #### C DENISE, BMP ####[place] [id number] [facility] Platelet mean volume (Bld) [Entitic vol] 9.1 fL Normal 6.6-10.1 [facility] Comment on above: Performed By: #### C DENISE, BMP ####[address] [address] [facility] Platelets (Bld) [#/Vol] 173 10*3/uL Normal 150-450 [facility] Comment on above: Performed By: #### C DENISE, BMP ####[address] [address] [facility] RBC (Bld) [#/Vol] 3.98 10*6/uL Normal 3.90-5.60 [facility] Comment on above: Performed By: #### C BC, BMP ####[facility] [id number] [place] [id number] [facility] WBC (Bld) [#/Vol] 9.0 10*3/uL Normal 4.1-10.5 [facility] Comment on above: Performed By: #### C BC, BMP ####[facility] [address] [place] [id number] [facility] ECG 12 lead ECGon 04-30-2023 ECG 12 lead ECG [facility] Main [place] [address] [place] [address] Electrocardiograph Report Signed Patient: Ashwini Vickers MR#: [id number] 353 : 1935 Acct:[id number] Age/Sex: 88 / M ADM Date: 04/28/23 Loc: Room: [address] [place] [address] Type: ADM IN Attending Dr: Sushant Cordon [...] Septal infarct present Confirmed by ADIS [facility] ([id number][facility] on 05/02/2023 10:47:33 AM Referred By: Electronically Signed By:GEENA VALENTE MD [facility] Transcribed By: MUS Signed By Adrián Valente MD 05/02/[address] [facility] Glucose Poct Glucometerson 1 Commemt1 Glu2: Cleaned Meter Normal [facility] Comment on above: Result Comment: PERF ORMED BY: [facility] [address] [facility] [place] [address] PATHOLOGIST BOROUGH COORDINATOR AIRAM MAST M.D. Performed By: #### G LULS #### Point of Care testing , Glucose [Mass/Vol] 375 mg/dL Normal [facility] Comment on above: Result Comment: [place] om Glucose Reference Range is dependent on time and content of last meal. Glucose of more than 200 mg/dL in a nonstressed, ambulatory subject supports the diagnosis of Diabetes Mellitus. Performed By: #### G LULS #### Point of Care testing , Glucose [Mass/Vol] 162 mg/dL Normal [facility] Comment on above: Result Comment: [place] om Glucose Reference Range is dependent on time and content of last meal. Glucose of more than 200 mg/dL in a nonstressed, ambulatory subject supports the diagnosis of Diabetes Mellitus. PERFORMED BY: [place] [address] PATHOLOGIST BOROUGH COORDINATOR AIRAM MAST M.D. Performed By: #### G LULS ####Point of Care testing, Glucose [Mass/Vol] 149 mg/dL [facility] Comment on above: Result Comment: [place] om Glucose Reference Range is dependent on time and content of last meal. Glucose of more than 200 mg/dL in a nonstressed, ambulatory subject supports the diagnosis of Diabetes Mellitus. PERFORMED BY: [address] [place] [address] PATHOLOGIST BOROUGH COORDINATOR AIRAM MAST M.D. Performed By: #### G LULS ####Point of Care testing, Commemt1 Glu2: Cleaned Meter Normal [facility] Comment on above: Result Comment: PERF ORMED BY: [facility] [address] [facility] [place] [address] PATHOLOGIST BOROUGH COORDINATOR AIRAM MAST M.D. Performed By: #### G LULS #### Point of Care testing , Glucose [Mass/Vol] 130 mg/dL [facility] Comment on above: Result Comment: [place] om Glucose Reference Range is dependent on time and content of last meal. Glucose of more than 200 mg/dL in a nonstressed, ambulatory subject supports the diagnosis of Diabetes Mellitus. Performed By: #### G LULS #### Point of Care testing , Glucose [Mass/Vol] 118 mg/dL Normal [facility] Comment on above: Result Comment: [place] om Glucose Reference Range is dependent on time and content of last meal. Glucose of more than 200 mg/dL in a nonstressed, ambulatory subject supports the diagnosis of Diabetes Mellitus. PERFORMED BY: [address] [place] [id number] PATHOLOGIST BOROUGH COORDINATOR AIRAM MAST M.D. Performed By: #### G LULS ####Point of Care testing, Glucose [Mass/Vol] 83 mg/dL Normal [facility] Comment on above: Result Comment: [place] om Glucose Reference Range is dependent on time and content of last meal. Glucose of more than 200 mg/dL in a nonstressed, ambulatory subject supports the diagnosis of Diabetes Mellitus. PERFORMED BY: [address] [place] [address] PATHOLOGIST BOROUGH COORDINATOR AIRAM MAST M.D. Performed By: #### G LULS #### Point of Care testing , Commemt1 [facility] Comment on above: Result Comment: Glu2 : WILL NOTIFY DR/RN PERFORMED BY: [address] [place] [address] PATHOLOGIST BOROUGH COORDINATOR AIRAM MAST M.D. Performed By: #### G LULS ####Point of Care testing, Glucose [Mass/Vol] 53 mg/dL Off scale low [facility] Comment on above: Result Comment: [place] om Glucose Reference Range is dependent on time and content of last meal. Glucose of more than 200 mg/dL in a nonstressed, ambulatory subject supports the diagnosis of Diabetes Mellitus. Performed By: #### G LULS ####Point of Care testing, Glucose [Mass/Vol] 75 mg/dL Normal [facility] Comment on above: Result Comment: [place] om Glucose Reference Range is dependent on time and content of last meal. Glucose of more than 200 mg/dL in a nonstressed, ambulatory subject supports the diagnosis of Diabetes Mellitus. PERFORMED BY: [facility] [address] [place] [address] PATHOLOGIST BOROUGH COORDINATOR AIRAM MAST M.D. Performed By: #### G LULS #### Point of Care testing , Glucose [Mass/Vol] 63 mg/dL Normal [facility] Comment on above: Result Comment: [facility] Glucose Reference Range is dependent on time and content of last meal. Glucose of more than 200 mg/dL in a nonstressed, ambulatory subject supports the diagnosis of Diabetes Mellitus. PERFORMED BY: [facility] [address] [facility] [place] [address] PATHOLOGIST BOROUGH COORDINATOR AIRAM MAST M.D. Performed By: #### G LULS ####Point of Care testing, Glucose [Mass/Vol] 133 mg/dL Normal [facility] Comment on above: Result Comment: [facility] Glucose Reference Range is dependent on time and content of last meal. Glucose of more than 200 mg/dL in a nonstressed, ambulatory subject supports the diagnosis of Diabetes Mellitus. PERFORMED BY: [facility] [address] [facility] [place] [address] PATHOLOGIST BOROUGH COORDINATOR AIRAM MAST M.D. Performed By: #### G LULS ####Point of Care testing, Glucose [Mass/Vol] 68 mg/dL Normal [facility] Comment on above: Result Comment: [facility] Glucose Reference Range is dependent on time and content of last meal. Glucose of more than 200 mg/dL in a nonstressed, ambulatory subject supports the diagnosis of Diabetes Mellitus. PERFORMED BY: [facility] [address] [facility] [place] [address] PATHOLOGIST BOROUGH COORDINATOR AIRAM MAST M.D. Performed By: #### G LULS ####Point of Care testing, INR in Platelet poor plasma by Coagulation assayOrdered By: Anat Perez on 04-30-2023 INR Coag (PPP) [Relative time] 1.3 {INR} [facility] Comment on above: INR Therapeutic Rang [...] peptide B (Bld) [Mass/Vol] 523.0 pg/mL 5-100 [facility] Partial Thromboplastin Timeo n 04-30-2023 aPTT Coag (Bld) [Time] 30.6 s Normal 25.1-36.5 [facility] Comment on above: Result Comment: A he matocrit value greater than 55% may lead to inaccurate results in coagulation testing. Patients having hematocrit values >55% require a special collection tube for coagulation studies. Please contact the laboratory at [phone] for redraw instructions. PERFORMED BY: [facility] [address] [place] [id number] PATHOLOGIST BOROUGH COORDINATOR AIRAM MAST M.D. Performed By: #### B MEDICAL INSURANCE CLAIMS SPECIALIST, HS TROP, BMP, PTT, PT, CBC ####[place] [address] [place] [id number] [facility] Prothrombin Time INRon 04-30 INR Coag (PPP) [Relative time] 1.3 {INR} Normal [facility] Comment on above: Result Comment: INR [...] 3 - 4.5 Performed By: #### B MEDICAL INSURANCE CLAIMS SPECIALIST, HS TROP, BMP, PTT, PT, CBC ####[facility] [place] [id number] [facility] PT Coag (PPP) [Time] 15.6 s High 9.0-12.9 [facility] Comment on above: Result Comment: A he matocrit value greater than 55% may lead to inaccurate results in coagulation testing. Patients having hematocrit values >55% require a special collection tube for coagulation studies. Please contact the laboratory at [phone] for redraw instructions. Performed By: #### B MEDICAL INSURANCE CLAIMS SPECIALIST, HS TROP, BMP, PTT, PT, CBC ####[address] [place] [address] [facility] Prothrombin time (PT)Ordered By: Anat Perez on 04-30-2023 PT Coag (PPP) [Time] 15.6 s 9.0-12.9 [facility] Comment on above: A hematocrit value g reater than 55% may lead to inaccurate results in coagulation testing. Patients having hematocrit values >55% require a special collection tube for coagulation studies. Please contact the laboratory at [phone] for redraw instructions. Troponin I High Sensitivityo n 04-30-2023 Troponin I High Sensitivity 53.7 pg/mL Off scale high 0.0-20.0 [facility] Comment on above: Result Comment: Crit ical Result : Called to and read back by: STEVEN BYRD at: 04/30/2023 19:24:20 by:[id number] PERFORMED BY: [address] [place] [address] PATHOLOGIST BOROUGH COORDINATOR AIRAM MAST M.D. Performed By: #### H S TROP ####[address] [address] [facility] Troponin I High Sensitivity 26.1 pg/mL High 0.0-20.0 [facility] Comment on above: Result Comment: PERF ORMED BY: [facility] [address] [place] [address] PATHOLOGIST BOROUGH COORDINATOR AIRAM MAST M.D. Performed By: #### H S TROP ####[address] [address] [facility] Troponin I High Sensitivity 24.6 pg/mL High 0.0-20.0 [facility] Comment on above: Result Comment: PERF ORMED BY: [facility] [address] [facility] [place] [address] PATHOLOGIST BOROUGH COORDINATOR AIRAM MAST M.D. Performed By: #### B MEDICAL INSURANCE CLAIMS SPECIALIST, HS TROP, BMP, PTT, PT, CBC ####[facility] [place] [id number] [facility] Troponin I High Sensitivity 26.8 pg/mL High 0.0-20.0 [facility] Comment on above: Result Comment: PERF ORMED BY: [place] [address] PATHOLOGIST BOROUGH COORDINATOR AIRAM MAST M.D. Performed By: #### G LULS #### Point of Care testing , Troponin I.cardiac [Mass/vol ume] in Serum or Plasma by Detection limit <= 0.01 ng/Ordered By: Anat Perez on 04-30-2023 Troponin I.cardiac DL <= 0.01 ng/mL [Mass/Vol] 53.7 pg/mL 0.0-20.0 [facility] Comment on above: Critical Result : Ca lled to and read back by: STEVEN BYRD at: 04/30/2023 19:24:20 by:[id number] Type and Screenon 04-30-2023 ABO and Rh group Nom (Bld) Blood group A Rh(D) positive Normal [facility] Comment on above: Result Comment: PERF ORMED BY: [address] [address] PATHOLOGIST BOROUGH COORDINATOR AIRAM MAST M.D. XR chest 1V portableon 04-30 XR chest 1V portable [facility] Main [address] [address] XRay Report Signed Patient: Ashwini Vickers MR#: [id number] 353 : 1935 Acct:[id number] Age/Sex: 88 / M ADM Date: 04/28/23 Loc: 4N Room: [address] [place] [address] Type: ADM IN Attending Dr: Sushant Cordon [...] Sheldon Johnson M.D.04/30/2023 10:16 AM Dictation Location: [place] [address] Transcribed By: [facility] 04/30/23 1016 Dictated By: Sheldon Johnson DO 04/30/23 1010 Signed By: 04/30/23 1016 Normal [facility] XR hip RT min 2V(w/wo pelvis )*on 04-30-2023 XR hip RT min 2V(w/wo pelvis)* [facility] [place] [address] XRay Report Signed Patient: Ashwini Vickers MR#: [id number] 353 : 1935 Acct:[id number] Age/Sex: 88 / M ADM Date: 04/28/23 Loc: Room: [address] [place] [address] Type: ADM IN Attending Dr: Sushant Cordon DO Copies to: MD Sushant Carlos DO Ordering Provider: Ashwini Conrad MD Date of Service: 04/30/23 XR/XR hip RT min 2V(w/wo pelvis)*: RT HIP TFN ([id number]) XR/XR hip RT min 2V(w/wo pelvis)*: Hip [...] Sofia Rosales M.D.04/30/2023 6:32 PM Dictation Location: [place] [address] Transcribed By: [facility] 04/30/231831 Dictated By: Sofia Rosales MD 04/30/231827 Signed By: 04/30/231831 [facility] Basic Metabolic Panelon - Anion gap [Moles/Vol] 8.5 mmol/L Normal 6.0-15.0 [facility] Comment on above: Order Comment: FASTI NG Y Performed By: #### G LULS #### Point of Care testing , Calcium [Mass/Vol] 8.4 mg/dL Low 8.6-10.3 [facility] Comment on above: Order Comment: FASTI NG Y Performed By: #### G LULS #### Point of Care testing , Chloride [Moles/Vol] 100 mmol/L Normal 98-107 [facility] Comment on above: Order Comment: FASTI NG Y Performed By: #### G LULS #### Point of Care testing , CO2 [Moles/Vol] 32.3 mmol/L High 21.0-31.0 [facility] Comment on above: Order Comment: FASTI NG Y Performed By: #### G LULS #### Point of Care testing , Creatinine [Mass/Vol] 0.79 mg/dL Normal 0.70-1.30 [facility] Comment on above: Order Comment: FASTI NG Y Performed By: #### G LULS #### Point of Care testing , Creatinine Clr Calc Pharmacy 57.75 [facility] Comment on above: Order Comment: FASTI NG Y Performed By: #### G LULS #### Point of Care testing , GFR/1.73 sq M.predicted MDRD (S/P/Bld) [Vol rate/Area] mL/min/{1.73_m2} Normal [facility] Comment on above: Order Comment: FASTI NG Y Performed By: #### G LULS #### Point of Care testing , Glucose [Mass/Vol] 106 mg/dL High 70-100 [facility] Comment on above: Order Comment: FASTI NG Y Result Comment: [facility] Glucose Reference Range is dependent on time and content of last meal. Glucose of more than 200 mg/dL in a nonstressed, ambulatory subject supports the diagnosis of Diabetes Mellitus. ADA recommended reference range Performed By: #### G LULS #### Point of Care testing , Potassium [Moles/Vol] 4.8 mmol/L Normal 3.5-5.1 [facility] Comment on above: Order Comment: FASTI NG Y Performed By: #### G LULS #### Point of Care testing , Sodium [Moles/Vol] 136 mmol/L Normal 136-145 [facility] Comment on above: Order Comment: FASTI NG Y Performed By: #### G LULS #### Point of Care testing , Urea nitrogen [Mass/Vol] 15 mg/dL Normal 7-25 [facility] Comment on above: Order Comment: FASTI NG Y Performed By: #### G LULS #### Point of Care testing , Complete Blood Count Auto Di ffon 04-29-2023 Basophils (Bld) [#/Vol] 0.0 10*3/uL Normal 0.0-0.2 [facility] Comment on above: Result Comment: PERF ORMED BY: [facility] [address] [place] [address] PATHOLOGIST BOROUGH COORDINATOR AIRAM MAST M.D. Performed By: #### G LULS #### Point of Care testing , Basophils/100 WBC (Bld) 0.3 % Normal . [facility] Comment on above: Performed By: #### G LULS #### Point of Care testing , Eosinophils (Bld) [#/Vol] 0.1 10*3/uL Normal 0.0-0.45 [facility] Comment on above: Performed By: #### Aileen NATION #### Point of Care testing , Eosinophils/100 WBC (Bld) 1.3 % Normal . [facility] Comment on above: Performed By: #### G KRISTOPHERLS #### Point of Care testing , Erythrocyte distribution width (RBC) [Ratio] 18.3 % High 12.0-14.8 [facility] Comment on above: Performed By: #### Aileen NATION #### Point of Care testing , Hematocrit (Bld) [Volume fraction] 32.9 % Low 38.8-50.0 [facility] Comment on above: Performed By: #### Aileen SUMMERSLS #### Point of Care testing , Hemoglobin (Bld) [Mass/Vol] 10.9 g/dL Low 13.0-17.0 [facility] Comment on above: Performed By: #### Aileen NATION #### Point of Care testing , Lymphocytes (Bld) [#/Vol] 2.0 10*3/uL Normal 1.00-4.8 [facility] Comment on above: Performed By: #### Aileen NATION #### Point of Care testing , Lymphocytes/100 WBC (Bld) 26.5 % Normal . [facility] Comment on above: Performed By: #### Aileen NATION #### Point of Care testing , MCH (RBC) [Entitic mass] 28.0 pg Normal 27.5-35.2 [facility] Comment on above: Performed By: #### Aileen NATION #### Point of Care testing , MCV (RBC) [Entitic vol] 84.9 fL Normal 83.5-101 [facility] Comment on above: Performed By: #### Aileen NATION #### Point of Care testing , Mean Corpuscular HGB Conc 33.0 g/dL Normal 32.5-35.6 [facility] Comment on above: Performed By: #### Aileen NATION #### Point of Care testing , Monocytes (Bld) [#/Vol] 1.1 10*3/uL High 0.0-0.8 [facility] Comment on above: Performed By: #### G LULS #### Point of Care testing , Monocytes/100 WBC (Bld) 14.9 % Normal . [facility] Comment on above: Performed By: #### G LULS #### Point of Care testing , Neutrophils (Bld) [#/Vol] 4.3 10*3/uL Normal 1.8-7.7 [facility] Comment on above: Performed By: #### G LULS #### Point of Care testing , Neutrophils/100 WBC (Bld) 57.0 % Normal . [facility] Comment on above: Performed By: #### G LULS #### Point of Care testing , NRBC% 0.1 /100{WBC} Normal 0-0.5 [facility] Comment on above: Performed By: #### G LULS #### Point of Care testing , Platelet mean volume (Bld) [Entitic vol] 9.3 fL Normal 6.6-10.1 [facility] Comment on above: Performed By: #### G LULS #### Point of Care testing , Platelets (Bld) [#/Vol] 186 10*3/uL Normal 150-450 [facility] Comment on above: Performed By: #### G LULS #### Point of Care testing , RBC (Bld) [#/Vol] 3.88 10*6/uL Low 3.90-5.60 [facility] Comment on above: Performed By: #### G LULS #### Point of Care testing , WBC (Bld) [#/Vol] 7.5 10*3/uL Normal 4.1-10.5 [facility] Comment on above: Performed By: #### G LULS #### Point of Care testing , E[facility] echo transthoracicon [facility] echo transthoracic [facility] Main [address] [address] Echocardiogram Signed Patient: Ashwini Vickers MR#: [id number] 353 : 1935 Acct:[id number] Age/Sex: 88 / M ADM Date: 04/28/23 Loc: Room: 4N2868-3 Type: ADM IN Attending Dr: Sushant Cordon [...] By: Adrián Valente MD 04/29/23 1118 Normal [facility] Ferritinon 04-29-2023 Ferritin [Mass/Vol] 41.5 ng/mL Normal 23.9-336.2 [facility] Comment on above: Order Comment: FASTI NG Y Performed By: #### G LULS #### Point of Care testing , Ferritin [Mass/volume] in Se rum or PlasmaOrdered By: Sushant Cordon on 04-29-2023 Ferritin [Mass/Vol] 41.5 ng/mL 23.9-336.2 [facility] Folate [Mass/volume] in Seru m or PlasmaOrdered By: Sushant Cordon on 04-29-2023 Folate [Mass/Vol] 28.0 ng/mL >5.9 [facility] Comment on above: Folate reference ran ge: >5.9 ng/mlThe WHO technical consultation on folate and vitamin [id number] has determined that folate concentrations lessthan 4 ng/ml are considered deficient. Glucose Poct Glucometerson 1 Glucose [Mass/Vol] 323 mg/dL Normal [facility] Comment on above: Result Comment: [facility] Glucose Reference Range is dependent on time and content of last meal. Glucose of more than 200 mg/dL in a nonstressed, ambulatory subject supports the diagnosis of Diabetes Mellitus. PERFORMED BY: [facility] [address] [place] [address] PATHOLOGIST BOROUGH COORDINATOR AIRAM MAST M.D. Performed By: #### G LULS ####Point of Care testing, Glucose [Mass/Vol] 238 mg/dL Normal [facility] Comment on above: Result Comment: [facility] Glucose Reference Range is dependent on time and content of last meal. Glucose of more than 200 mg/dL in a nonstressed, ambulatory subject supports the diagnosis of Diabetes Mellitus. PERFORMED BY: [facility] [address] [place] [id number] PATHOLOGIST BOROUGH COORDINATOR AIRAM MAST M.D. Performed By: #### G LULS #### Point of Care testing , Commemt1 Glu2: Cleaned Meter [facility] Comment on above: Result Comment: PERF ORMED BY: [place] [address] [place] [address] PATHOLOGIST BOROUGH COORDINATOR AIRAM MAST M.D. Performed By: #### G LULS ####Point of Care testing, Glucose [Mass/Vol] 81 mg/dL [facility] Comment on above: Result Comment: [place] Glucose Reference Range is dependent on time and content of last meal. Glucose of more than 200 mg/dL in a nonstressed, ambulatory subject supports the diagnosis of Diabetes Mellitus. Performed By: #### G LULS ####Point of Care testing, Glucose [Mass/Vol] 141 mg/dL [facility] Comment on above: Result Comment: [place] om Glucose Reference Range is dependent on time and content of last meal. Glucose of more than 200 mg/dL in a nonstressed, ambulatory subject supports the diagnosis of Diabetes Mellitus. PERFORMED BY: [address] [place] [address] PATHOLOGIST BOROUGH COORDINATOR AIRAM MAST M.D. Performed By: #### G LULS #### Point of Care testing , Glucose [Mass/Vol] 87 mg/dL [facility] Comment on above: Result Comment: [place] Glucose Reference Range is dependent on time and content of last meal. Glucose of more than 200 mg/dL in a nonstressed, ambulatory subject supports the diagnosis of Diabetes Mellitus. PERFORMED BY: [address] [place] [address] PATHOLOGIST BOROUGH COORDINATOR AIRAM MAST M.D. Performed By: #### G LULS ####Point of Care testing, Commemt1 Glu2: Cleaned Meter [facility] Comment on above: Performed By: #### G LULS ####Point of Care testing, Commemt2 WILL NOTIFY DR/RN Normal [facility] Comment on above: Result Comment: PERF ORMED BY: [facility] [address] [place] [id number] PATHOLOGIST BOROUGH COORDINATOR AIRAM MAST M.D. Performed By: #### G LULS ####Point of Care testing, Glucose [Mass/Vol] 53 mg/dL Off scale [facility] Comment on above: Result Comment: [place] [facility] Glucose Reference Range is dependent on time and content of last meal. Glucose of more than 200 mg/dL in a nonstressed, ambulatory subject supports the diagnosis of Diabetes Mellitus. Performed By: #### G LULS ####Point of Care testing, Commemt1 Glu2: Cleaned Meter [facility] Comment on above: Performed By: #### G LULS ####Point of Care testing, Commemt2 WILL NOTIFY /KARIN [facility] Comment on above: Result Comment: PERF ORMED BY: [address] [place] [id number] PATHOLOGIST BOROUGH COORDINATOR AIRAM MAST M.D. Performed By: #### G LULS ####Point of Care testing, Glucose [Mass/Vol] 47 mg/dL Off scale [facility] Comment on above: Result Comment: [place] [facility] Glucose Reference Range is dependent on time and content of last meal. Glucose of more than 200 mg/dL in a nonstressed, ambulatory subject supports the diagnosis of Diabetes Mellitus. Performed By: #### G LULS ####Point of Care testing, Commemt1 Glu2: Cleaned Meter [facility] Comment on above: Result Comment: PERF ORMED BY: [address] [place] [id number] PATHOLOGIST BOROUGH COORDINATOR AIRAM MAST M.D. Performed By: #### G LULS ####Point of Care testing, Glucose [Mass/Vol] 58 mg/dL Off scale [facility] Comment on above: Result Comment: [facility] [facility] Glucose Reference Range is dependent on time and content of last meal. Glucose of more than 200 mg/dL in a nonstressed, ambulatory subject supports the diagnosis of Diabetes Mellitus. Performed By: #### G LULS ####Point of Care testing, Commemt1 Glu2: Cleaned Meter Normal [facility] Comment on above: Result Comment: PERF ORMED BY: [facility] [address] [place] [address] PATHOLOGIST BOROUGH COORDINATOR AIRAM MAST M.D. Performed By: #### G LULS ####Point of Care testing, Glucose [Mass/Vol] 59 mg/dL Off scale low [facility] Comment on above: Result Comment: [facility] Glucose Reference Range is dependent on time and content of last meal. Glucose of more than 200 mg/dL in a nonstressed, ambulatory subject supports the diagnosis of Diabetes Mellitus. Performed By: #### G LULS ####Point of Care testing, Iron [Mass/volume] in Serum or PlasmaOrdered By: Sushant Cordon on 04-29-2023 Iron [Mass/Vol] 45 ug/dL 50-212 [facility] Iron and TIBC Profileon 04-11 % Iron Saturation 13.6 % Low 20-50 [facility] Comment on above: Order Comment: FASTI NG Y Performed By: #### G LULS #### Point of Care testing , Iron [Mass/Vol] 45 ug/dL Low 50-212 [facility] Comment on above: Order Comment: FASTI NG Y Performed By: #### G LULS #### Point of Care testing , Total Iron Binding Capacity 330 ug/dL Normal 255-450 [facility] Comment on above: Order Comment: FASTI NG Y Performed By: #### G LULS #### Point of Care testing , Transferrin [Mass/Vol] 236 mg/dL Normal 203-362 [facility] Comment on above: Order Comment: FASTI NG Y Performed By: #### G LULS #### Point of Care testing , Iron binding capacity [Mass/ volume] in Serum or PlasmaOrdered By: Sushant Cordon on 04-29-2023 Iron binding capacity [Mass/Vol] 330 ug/dL 255-450 [facility] Iron saturation [Mass Fracti on] in Serum or PlasmaOrdered By: Sushant Cordon on 04-29-2023 Iron saturation [Mass fraction] 13.6 % 20-50 [facility] Lipid Panelon 04-29-2023 Cholesterol [Mass/Vol] 143 mg/dL Normal 140-200 [facility] Comment on above: Order Comment: FASTI ARSLAN Y Result Comment: Chol less than 200 mg/dl low risk Chol 201-239 mg/dl borderline risk Chol 240 mg/dl and greater high risk Performed By: #### G LULS #### Point of Care testing , Cholesterol in HDL [Mass/Vol] 57 mg/dL Normal 23-92 [facility] Comment on above: Order Comment: FASTI NG Y Result Comment: HDL CHOL ATP-III CLASSIFICATION Cardiovascular Risk HDL > or equal to 60 mg/dL LOW HDL < 40 mg/dL HIGH Performed By: #### G LULS #### Point of Care testing , Cholesterol.total/Cho lesterol in HDL [Mass ratio] 2.5 {ratio} Normal <5.0 [facility] Comment on above: Order Comment: NICHELLE ARSLAN Y Performed By: #### G LULS #### Point of Care testing , LDL Cholesterol,Calculate d 80 mg/dL Normal 0-100 [facility] Comment on above: Order Comment: FASTI NG Y Result Comment: LDL ATP III CLASSIFICATION LDL less than 100 mg/dL Optimal LDL 100-129 mg/dL Near or above optimal LDL 130-159 mg/dL Borderline high LDL 160-189 mg/dL High LDL greater than 189 mg/dL Very high Performed By: #### G LULS #### Point of Care testing , Triglyceride w/Reflex 32 mg/dL Normal 0-149 [facility] Comment on [...] testing , VLDL CHOLESTEROL 6 mg/dL Normal [facility] Comment on above: Order Comment: FASTI NG Y Performed By: #### G LULS #### Point of Care testing , Magnesiumon 04-29-2023 Magnesium [Mass/Vol] 1.9 mg/dL Normal 1.9-2.7 [facility] Comment on above: Order Comment: FASTI NG Y Performed By: #### G LULS #### Point of Care testing , Magnesium [Mass/volume] in S jihan or PlasmaOrdered By: Sushant Cordon on 04-29-2023 Magnesium [Mass/Vol] 1.9 mg/dL 1.9-2.7 [facility] No Panel InformationOrdered By: Sushant Cordon on 04-29-2023 Bedside Glucose #[address]/rn [facility] Transferrin [Mass/volume] in Serum or PlasmaOrdered By: Sushant Cordon on 04-29-2023 Transferrin [Mass/Vol] 236 mg/dL 203-362 [facility] Troponin I High Sensitivityo n 04-29-2023 Troponin I High Sensitivity 32.5 pg/mL High 0.0-20.0 [facility] Comment on above: Result Comment: PERF ORMED BY: [facility] [address] [place] [address] PATHOLOGIST BOROUGH COORDINATOR AIRAM MAST M.D. Performed By: #### H S TROP ####[facility] [id number] [place] [id number] [facility] Vit. B12/Folate Profileon Cobalamin (Vitamin B12) [Mass/Vol] 626 pg/mL Normal 180-914 [facility] Comment on above: Order Comment: FASTI NG Y Performed By: #### G LULS #### Point of Care testing , Folate 28.0 ng/mL Normal >5.9 [facility] Comment on above: Order Comment: FASTI NG Y Result Comment: Lucretia te reference range: >5.9 ng/ml The WHO technical consultation on folate and vitamin b12 deficiencies has determined that folate concentrations less than 4 ng/ml are considered deficient. PERFORMED BY: [facility] [address] [place] [address] PATHOLOGIST BOROUGH COORDINATOR AIRAM MAST M.D. Performed By: #### G RIOS #### Point of Care testing , Vitamin B12 ser/plasOrdered By: Sushant Cordon on 04-29-2023 Cobalamin (Vitamin B12) [Mass/Vol] 626 pg/mL 180-914 [facility] A1C with Estimated Average G kirill 04-28-2023 Glucose [Mass/Vol] 309 mg/dL Normal [facility] Comment on above: Result Comment: PERF ORMED BY: [facility] [address] [id number] PATHOLOGIST BOROUGH COORDINATOR AIRAM MAST M.D. Performed By: #### A 1C [facility] eA ####[address] [place] [address] [facility] HbA1c (Bld) [Mass fraction] 12.4 % High 4.3-5.6 [facility] Comment on above: Result Comment: Incr eased risk for diabetes: 5.7 - 6.4 diabetes: >6.4 glycemic control for adults with diabetes: <7.0 Performed By: #### A 1C [facility] eA ####[address] [place] [address] [facility] ABO/Rh Retypeon 04-28-2023 ABO/RH Recheck Result Positive Normal [facility] Comment on above: Result Comment: PERF ORMED BY: [facility] [address] [place] [address] PATHOLOGIST BOROUGH COORDINATOR AIRAM MAST M.D. Activated partial thrombopla stin time (aPTT) in platelet poor plasma by coagulation aOrdered By: Vinnie Rivas on 04-28-2023 aPTT Coag (PPP) [Time] 27.8 s 25.1-36.5 [facility] Comment on above: A hematocrit value g reater than 55% may lead to inaccurate results in coagulation testing. Patients having hematocrit values >55% require a special collection tube for coagulation studies. Please contact the laboratory at [phone] for redraw instructions. Alanine aminotransferase [En zymatic activity/volume] in Serum or PlasmaOrdered By: Vinnie Rivas on 04-28-2023 ALT [Catalytic activity/Vol] 34 U/L 7-52 [facility] Albumin [Mass/volume] in Ser um or Plasma by Bromocresol green (BCG) dye binding methoOrdered By: Vinnie Rivas on 04-28-2023 Albumin BCG dye [Mass/Vol] 4.0 g/dL 3.5-5.7 [facility] Alkaline phosphatase [Enzyma tic activity/volume] in Serum or PlasmaOrdered By: Vinnie Rivas on 04-28-2023 ALP [Catalytic activity/Vol] 108 U/L 34-104 [facility] Aspartate aminotransferase [ Enzymatic activity/volume] in Serum or PlasmaOrdered By: Vinnie Rivas on 04-28-2023 AST [Catalytic activity/Vol] 46 U/L 13-39 [facility] Automated urine color determ inationOrdered By: Vinnie Rivas on 04-28-2023 Color (U) Yellow Normal Yellow [facility] Comment on above: Order Comment: Name Collection Type:: Kimble Catheter Performed By: #### U A ####[facility] [place] [address] [facility] B-Type Natriuretic Peptideon 04-28-2023 Natriuretic peptide B (Bld) [Mass/Vol] 665.0 pg/mL High 5-100 [facility] Comment on above: Result Comment: PERF ORMED BY: [facility] [address] [place] [address] PATHOLOGIST BOROUGH COORDINATOR AIRAM MAST M.D. Performed By: #### P T, CMP, CBC, BNP, HS TROP, PTT ####[facility] [id number] [place] [address] [facility] Basophils Auto (Bld) [#/Vol] Ordered By: Vinnie Rivas on 04-28-2023 Basophils (Bld) [#/Vol] 0.0 10*3/uL 0.0-0.2 [facility] Basophils/100 WBC Auto (Bld) Ordered By: Vinnie Rivas on 04-28-2023 Basophils/100 WBC (Bld) 0.4 % . [facility] Bilirubin Test strip Ql (U)O rdered By: Vinnie Rivas on 04-28-2023 Bilirubin Ql (U) Negative Negative [facility] Bilirubin.total [Mass/volume ] in Serum or PlasmaOrdered By: Vinnie Rivas on 04-28-2023 Bilirubin [Mass/Vol] 0.3 mg/dL 0.3-1.0 [facility] Calcium [Mass/volume] in Ser um or PlasmaOrdered By: Vinnie Rivas on 04-28-2023 Calcium [Mass/Vol] 9.0 mg/dL 8.6-10.3 [facility] Carbon dioxide, total [Moles /volume] in Serum or PlasmaOrdered By: Vinnie Rivas on 04-28-2023 CO2 [Moles/Vol] 30.4 mmol/L 21.0-31.0 [facility] Chloride [Moles/volume] in S jihan or PlasmaOrdered By: Vinnie Rivas on 04-28-2023 Chloride [Moles/Vol] 101 mmol/L 98-107 [facility] Complete Blood Count Auto Di ffon 04-28-2023 Basophils (Bld) [#/Vol] 0.0 10*3/uL Normal 0.0-0.2 [facility] Comment on above: Result Comment: PERF ORMED BY: [facility] [address] [place] [address] PATHOLOGIST BOROUGH COORDINATOR AIRAM MAST M.D. Performed By: #### P T, CMP, CBC, BNP, HS TROP, PTT ####[address] Basophils/100 WBC (Bld) 0.4 % Normal . [facility] Comment on above: Performed By: #### P T, CMP, CBC, BNP, HS TROP, PTT ####[address] Eosinophils (Bld) [#/Vol] 0.0 10*3/uL Normal 0.0-0.45 [facility] Comment on above: Performed By: #### P T, CMP, CBC, BNP, HS TROP, PTT ####[address] [place] [address] [place] Eosinophils/100 WBC (Bld) 0.5 % Normal . [facility] Comment on above: Performed By: #### P T, CMP, CBC, BNP, HS TROP, PTT ####[address] Erythrocyte distribution width (RBC) [Ratio] 18.0 % High 12.0-14.8 [facility] Comment on above: Performed By: #### P T, CMP, CBC, BNP, HS TROP, PTT ####[address] Hematocrit (Bld) [Volume fraction] 34.8 % Low 38.8-50.0 [facility] Comment on above: Performed By: #### P T, CMP, CBC, BNP, HS TROP, PTT ####[address] Hemoglobin (Bld) [Mass/Vol] 11.5 g/dL Low 13.0-17.0 [facility] Comment on above: Performed By: #### P T, CMP, CBC, BNP, HS TROP, PTT ####[address] Lymphocytes (Bld) [#/Vol] 1.4 10*3/uL Normal 1.00-4.8 [facility] Comment on above: Performed By: #### P T, CMP, CBC, BNP, HS TROP, PTT ####[address] Lymphocytes/100 WBC (Bld) 14.8 % Normal . [facility] Comment on above: Performed By: #### P T, CMP, CBC, BNP, HS TROP, PTT ####[address] MCH (RBC) [Entitic mass] 28.0 pg Normal 27.5-35.2 [facility] Comment on above: Performed By: #### P T, CMP, CBC, BNP, HS TROP, PTT ####[address] [address] [place] MCV (RBC) [Entitic vol] 84.3 fL Normal 83.5-101 [facility] Comment on above: Performed By: #### P T, CMP, CBC, BNP, HS TROP, PTT ####[address] Mean Corpuscular HGB Conc 33.2 g/dL Normal 32.5-35.6 [facility] Comment on above: Performed By: #### P T, CMP, CBC, BNP, HS TROP, PTT ####[address] Monocytes (Bld) [#/Vol] 0.9 10*3/uL High 0.0-0.8 [facility] Comment on above: Performed By: #### P T, CMP, CBC, BNP, HS TROP, PTT ####[address] Monocytes/100 WBC (Bld) 18.61 % Normal 0.00-20.00 [facility] Comment on above: Performed By: #### P T, CMP, CBC, BNP, HS TROP, PTT ####[address] Monocytes/100 WBC (Bld) 9.3 % Normal . [facility] Comment on above: Performed By: #### P T, CMP, CBC, BNP, HS TROP, PTT ####[address] Neutrophils (Bld) [#/Vol] 7.3 10*3/uL Normal 1.8-7.7 [facility] Comment on above: Performed By: #### P T, CMP, CBC, BNP, HS TROP, PTT ####[address] Neutrophils/100 WBC (Bld) 75.0 % Normal . [facility] Comment on above: Performed By: #### P T, CMP, CBC, BNP, HS TROP, PTT ####[place] [address] [place] NRBC% 0.1 /100{WBC} Normal 0-0.5 [facility] Comment on above: Performed By: #### P T, CMP, CBC, BNP, HS TROP, PTT ####[address] Platelet mean volume (Bld) [Entitic vol] 9.3 fL Normal 6.6-10.1 [facility] Comment on above: Performed By: #### P T, CMP, CBC, BNP, HS TROP, PTT ####[address] Platelets (Bld) [#/Vol] 206 10*3/uL Normal 150-450 [facility] Comment on above: Performed By: #### P T, CMP, CBC, BNP, HS TROP, PTT ####[address] RBC (Bld) [#/Vol] 4.12 10*6/uL Normal 3.90-5.60 [facility] Comment on above: Performed By: #### P T, CMP, CBC, BNP, HS TROP, PTT ####[address] WBC (Bld) [#/Vol] 9.7 10*3/uL Normal 4.1-10.5 [facility] Comment on above: Performed By: #### P T, CMP, CBC, BNP, HS TROP, PTT ####[address] Comprehensive Metabolic Pane afbby 04-28-2023 Albumin [Mass/Vol] 4.0 g/dL Normal 3.5-5.7 [facility] Comment on above: Performed By: #### P T, CMP, CBC, BNP, HS TROP, PTT ####[address] Albumin/Globulin [Mass ratio] 1.3 {ratio} Normal [facility] Comment on above: Performed By: #### P T, CMP, CBC, BNP, HS TROP, PTT ####[address] [address] [facility] ALP [Catalytic activity/Vol] 108 U/L High 34-104 [facility] Comment on above: Performed By: #### P T, CMP, CBC, BNP, HS TROP, PTT ####[address] [address] [facility] ALT [Catalytic activity/Vol] 34 U/L Normal 7-52 [facility] Comment on above: Performed By: #### P T, CMP, CBC, BNP, HS TROP, PTT ####[address] [address] [facility] Anion gap [Moles/Vol] 9.5 mmol/L Normal 6.0-15.0 [facility] Comment on above: Performed By: #### P T, CMP, CBC, BNP, HS TROP, PTT ####[place] [id number] [facility] AST [Catalytic activity/Vol] 46 U/L High 13-39 [facility] Comment on above: Performed By: #### P T, CMP, CBC, BNP, HS TROP, PTT ####[place] [id number] [facility] Bilirubin [Mass/Vol] 0.3 mg/dL Normal 0.3-1.0 [facility] Comment on above: Performed By: #### P T, CMP, CBC, BNP, HS TROP, PTT ####[place] [id number] [facility] Calcium [Mass/Vol] 9.0 mg/dL Normal 8.6-10.3 [facility] Comment on above: Performed By: #### P T, CMP, CBC, BNP, HS TROP, PTT ####[place] [id number] [facility] Chloride [Moles/Vol] 101 mmol/L Normal 98-107 [facility] Comment on above: Performed By: #### P T, CMP, CBC, BNP, HS TROP, PTT ####[address] [place] [address] [facility] CO2 [Moles/Vol] 30.4 mmol/L Normal 21.0-31.0 [facility] Comment on above: Performed By: #### P T, CMP, CBC, BNP, HS TROP, PTT ####[address] [place] [address] [facility] Creatinine [Mass/Vol] 0.71 mg/dL Normal 0.70-1.30 [facility] Comment on above: Performed By: #### P T, CMP, CBC, BNP, HS TROP, PTT ####[address] [place] [address] [facility] Creatinine Clr Calc Pharmacy 60.38 [facility] Comment on above: Result Comment: PERF ORMED BY: [facility] [address] [place] [address] PATHOLOGIST BOROUGH COORDINATOR AIRAM MAST M.D. Performed By: #### P T, CMP, CBC, BNP, HS TROP, PTT ####[place] [id number] [facility] GFR/1.73 sq M.predicted MDRD (S/P/Bld) [Vol rate/Area] mL/min/{1.73_m2} [facility] Comment on above: Performed By: #### P T, CMP, CBC, BNP, HS TROP, PTT ####[address] [place] [address] [facility] Globulin (S) [Mass/Vol] 3.2 g/dL [facility] Comment on above: Performed By: #### P T, CMP, CBC, BNP, HS TROP, PTT ####[place] [id number] [facility] Glucose [Mass/Vol] 124 mg/dL High 70-100 [facility] Comment on above: Result Comment: [place] Glucose Reference Range is dependent on time and content of last meal. Glucose of more than 200 mg/dL in a nonstressed, ambulatory subject supports the diagnosis of Diabetes Mellitus. ADA recommended reference range Performed By: #### P T, CMP, CBC, BNP, HS TROP, PTT ####[facility] [id number] [place] [address] [facility] Potassium [Moles/Vol] 4.9 mmol/L Normal 3.5-5.1 [facility] Comment on above: Performed By: #### P T, CMP, CBC, BNP, HS TROP, PTT ####[address] [place] [address] [facility] Protein [Mass/Vol] 7.2 g/dL Normal 6.4-8.9 [facility] Comment on above: Performed By: #### P T, CMP, CBC, BNP, HS TROP, PTT ####[address] [place] [address] [facility] Sodium [Moles/Vol] 136 mmol/L Normal 136-145 [facility] Comment on above: Performed By: #### P T, CMP, CBC, BNP, HS TROP, PTT ####[address] [place] [id number] [facility] Urea nitrogen [Mass/Vol] 15 mg/dL Normal 7-25 [facility] Comment on above: Performed By: #### P T, CMP, CBC, BNP, HS TROP, PTT ####[address] [place] [id number] [facility] Creatinine [Mass/volume] in Serum or PlasmaOrdered By: Vinnie Rivas on 04-28-2023 Creatinine [Mass/Vol] 0.71 mg/dL 0.70-1.30 [facility] ECG 12 lead ECGon 04-28-2023 ECG 12 lead ECG [facility] [address] [place] [address] [place] [address] Electrocardiograph Report Signed Patient: Ashwini Vickers MR#: [id number] 353 : 1935 Acct:[id number] Age/Sex: 88 / M ADM Date: 04/28/23 Loc: 4 Room: 4W7620-4 Type: ADM IN Attending Dr: Sushant Cordon [...] Atrial fibrillation Confirmed by Willi Lawrence DO ([id number]) on 04/28/2023 5:36:13 PM Referred By: Electronically Signed By:Willi Lawrence DO Transcribed By: MUS Signed By Willi Lawrence DO [address] [facility] ECG 12 lead ECG [facility] [place] [place] [address] Electrocardiograph Report Signed Patient: Ashwini Vickers MR#: [id number] 353 : 1935 Acct:[id number] Age/Sex: 88 / M ADM Date: 04/28/23 Loc: Room: [address] [place] [address] Type: ADM IN Attending Dr: Sushant Cordon [...] Sinus rhythm Confirmed by Willi Lawrence DO ([id number]) on 04/28/2023 5:36:13 PM Referred By: Electronically Signed By:Willi Lawrence DO Transcribed By: MUS Signed By Willi Lawrence DO [address] 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 [facility] Erythrocyte distribution wid th Auto (RBC) [Ratio]Ordered By: Vinnie Rivas on 04-28-2023 Erythrocyte distribution width (RBC) [Ratio] 18.0 % 12.0-14.8 [facility] Fructosamineon 04-28-2023 Fructosamine 565 umol/L High 0-285 [facility] Comment on above: Result Comment: Publ ished reference interval for apparently healthy subjects between age 20 and 60 is 205 - 285 umol/L and in a poorly controlled diabetic population is 228 - 563 umol/L with a mean of 396 umol/L. Performed at: - [facility] [address] [place], [place] [id number] Chief Librarian Music Department: Arturo Boles PhD, Phone: [phone] PERFORMED BY: [facility] [address] [place] [address] PATHOLOGIST BOROUGH COORDINATOR AIRAM MAST M.D. Performed By: #### G LULS #### Point of Care testing , Fructosamine [Moles/volume] in Serum or PlasmaOrdered By: Sushant Cordon on 04-28-2023 Fructosamine [Moles/Vol] 565 umol/L 0-285 [facility] Comment on above: Published reference interval for apparently healthysubjects between age 20 and 60 is 205 - 285 umol/L and in apoorly controlled diabetic population is 228 - 563 umol/Lwith a mean of 396 umol/L.Performed at: - [facility] [id number] Director: Arturo Boles PhD, Phone: [phone] Globulin Calc (S) [Mass/Vol] Ordered By: Vinnie Rivas on 04-28-2023 Globulin (S) [Mass/Vol] 3.2 g/dL [facility] Glucose Glucometer (BldC) [M ass/Vol]Ordered By: Sushant Cordon on 04-28-2023 Glucose [Mass/Vol] 137 mg/dL [facility] Comment on above: Random Glucose Refer ence Range is dependent on time and content of last meal. Glucose of more than 200 mg/dL in a nonstressed, ambulatory subject supports the diagnosis of Diabetes Mellitus. Glucose Poct Glucometerson 1 Glucose [Mass/Vol] 399 mg/dL Normal [facility] Comment on above: Result Comment: [place] om Glucose Reference Range is dependent on time and content of last meal. Glucose of more than 200 mg/dL in a nonstressed, ambulatory subject supports the diagnosis of Diabetes Mellitus. PERFORMED BY: [facility] [address] [place] [address] PATHOLOGIST BOROUGH COORDINATOR AIRAM MAST M.D. Performed By: #### G LULS ####Point of Care testing, Commemt1 Glu2: Cleaned Meter [facility] Comment on above: Result Comment: PERF ORMED BY: [facility] [address] [id number] PATHOLOGIST BOROUGH COORDINATOR AIRAM MAST M.D. Performed By: #### G LULS ####Point of Care testing, Glucose [Mass/Vol] 156 mg/dL [facility] Comment on above: Result Comment: [place] om Glucose Reference Range is dependent on time and content of last meal. Glucose of more than 200 mg/dL in a nonstressed, ambulatory subject supports the diagnosis of Diabetes Mellitus. Performed By: #### G LULS ####Point of Care testing, Glucose [Mass/Vol] 137 mg/dL [facility] Comment on above: Result Comment: [place] om Glucose Reference Range is dependent on time and content of last meal. Glucose of more than 200 mg/dL in a nonstressed, ambulatory subject supports the diagnosis of Diabetes Mellitus. PERFORMED BY: [facility] [address] [place] [address] PATHOLOGIST BOROUGH COORDINATOR AIRAM MAST M.D. Performed By: #### G LULS ####Point of Care testing, Commemt1 Glu2: Cleaned Meter [facility] Comment on above: Performed By: #### G LULS ####Point of Care testing, Commemt2 WILL NOTIFY DR/KARIN [facility] Comment on above: Result Comment: PERF ORMED BY: [facility] [address] [place] [address] PATHOLOGIST BOROUGH COORDINATOR AIRAM MAST M.D. Performed By: #### G LULS ####Point of Care testing, Glucose [Mass/Vol] 171 mg/dL [facility] Comment on above: Result Comment: [place] om Glucose Reference Range is dependent on time and content of last meal. Glucose of more than 200 mg/dL in a nonstressed, ambulatory subject supports the diagnosis of Diabetes Mellitus. Performed By: #### G LULS ####Point of Care testing, Glucose [Mass/volume] in Ser um or PlasmaOrdered By: Vinnie Rivas on 04-28-2023 Glucose [Mass/Vol] 124 mg/dL 70-100 [facility] Comment on above: ADA recommended refe [...] from glycated hemoglobin (Bld) [Mass/Vol] 309 mg/dL [facility] Hematocrit Auto (Bld) [Volum e fraction]Ordered By: Vinnie Rivas on 04-28-2023 Hematocrit (Bld) [Volume fraction] 34.8 % 38.8-50.0 [facility] Hemoglobin A1c percentageOrd ered By: Sushant Cordon on 04-28-2023 HbA1c (Bld) [Mass fraction] 12.4 % 4.3-5.6 [facility] Comment on above: Increased risk for d iabetes: 5.7 - 6.4diabetes: >6.4glycemic control for adults with diabetes: <7.0 Hemoglobin [Mass/volume] in BloodOrdered By: Vinnie Rivas on 04-28-2023 Hemoglobin (Bld) [Mass/Vol] 11.5 g/dL 13.0-17.0 [facility] INR in Platelet poor plasma by Coagulation assayOrdered By: Vinnie Rivas on 04-28-2023 INR Coag (PPP) [Relative time] 1.0 {INR} [facility] Comment on above: INR Therapeutic Rang [...] on 04-28-2023 Ketones (U) [Mass/Vol] Negative Negative [facility] Leukocytes [#/volume] correc robert for nucleated erythrocytes in Blood by Automated counOrdered By: Vinnie Rivas on 04-28-2023 WBC corrected for nucl RBC Auto (Bld) [#/Vol] 9.7 10*3/uL 4.1-10.5 [facility] Lymphocytes Auto (Bld) [#/Vo l]Ordered By: Vinnie Rivas on 04-28-2023 Lymphocytes (Bld) [#/Vol] 1.4 10*3/uL 1.00-4.8 [facility] Lymphocytes/100 WBC Auto (Bl d)Ordered By: Vinnie Rivas on 04-28-2023 Lymphocytes/100 WBC (Bld) 14.8 % . [facility] MCH Auto (RBC) [Entitic mass ]Ordered By: Vinnie Rivas on 04-28-2023 MCH (RBC) [Entitic mass] 28.0 pg 27.5-35.2 [facility] MCHC Auto (RBC) [Mass/Vol]Or dered By: Vinnie Rivas on 04-28-2023 MCHC (RBC) [Mass/Vol] 33.2 g/dL 32.5-35.6 [facility] MCV Auto (RBC) [Entitic vol] Ordered By: Vinnie Rivas on 04-28-2023 MCV (RBC) [Entitic vol] 84.3 fL 83.5-101 [facility] Monocyte distribution width [Entitic volume] in Blood by AutomatedOrdered By: Vinnie Rivas on 04-28-2023 Monocyte distribution width Auto (Bld) [Entitic vol] 18.61 % 0.00-20.00 [facility] Monocytes Auto (Bld) [#/Vol] Ordered By: Vinnie Rivas on 04-28-2023 Monocytes (Bld) [#/Vol] 0.9 10*3/uL 0.0-0.8 [facility] Monocytes/100 WBC Auto (Bld) Ordered By: Vinnie Rivas on 04-28-2023 Monocytes/100 WBC (Bld) 9.3 % . [facility] Natriuretic peptide B [Mass/ Vol]Ordered By: Vinnie Rivas on 04-28-2023 Natriuretic peptide B (Bld) [Mass/Vol] 665.0 pg/mL 5-100 [facility] Neutrophils Auto (Bld) [#/Vo l]Ordered By: Vinnie Rivas on 04-28-2023 Neutrophils (Bld) [#/Vol] 7.3 10*3/uL 1.8-7.7 [facility] Neutrophils/100 WBC Auto (Bl d)Ordered By: Vinnie Rivas on 04-28-2023 Neutrophils/100 WBC (Bld) 75.0 % . [facility] Nitrite Test strip Ql (U)Ord ered By: Vinnie Rivas on 04-28-2023 Nitrite Ql (U) Negative Negative [facility] No Panel InformationOrdered By: Vinnie Rivas on 04-28-2023 Estimated GFR (CKD-EPI) > 60.0 mL/Min [facility] Creatinine Clearance (Chem 60.38 [facility] Nucleated erythrocytes [Pres ence] in Blood by Automated countOrdered By: Vinnie Rivas on 04-28-2023 Nucleated RBC Auto Ql (Bld) 0.1 /100{WBC} 0-0.5 [facility] Partial Thromboplastin Timeo n 04-28-2023 aPTT Coag (Bld) [Time] 27.8 s Normal 25.1-36.5 [facility] Comment on above: Result Comment: A he matocrit value greater than 55% may lead to inaccurate results in coagulation testing. Patients having hematocrit values >55% require a special collection tube for coagulation studies. Please contact the laboratory at [phone] for redraw instructions. PERFORMED BY: [facility] [address] [place] [address] PATHOLOGIST BOROUGH COORDINATOR AIRAM MAST M.D. Performed By: #### P T, CMP, CBC, BNP, HS TROP, PTT ####[facility] [id number] [place] [address] [facility] Platelet mean volume Auto (B ld) [Entitic vol]Ordered By: Vinnie Rivas on 04-28-2023 Platelet mean volume (Bld) [Entitic vol] 9.3 fL 6.6-10.1 [facility] Platelets Auto (Bld) [#/Vol] Ordered By: Vinnie Rivas on 04-28-2023 Platelets (Bld) [#/Vol] 206 10*3/uL 150-450 [facility] Potassium [Moles/volume] in Serum or PlasmaOrdered By: Vinnie Rivas on 04-28-2023 Potassium [Moles/Vol] 4.9 mmol/L 3.5-5.1 [facility] Protein Auto test strip (U) [Mass/Vol]Ordered By: Vinnie Rivas on 04-28-2023 Protein (U) [Mass/Vol] Negative Negative [facility] Protein [Mass/volume] in Ser um or PlasmaOrdered By: Vinnie Rivas on 04-28-2023 Protein [Mass/Vol] 7.2 g/dL 6.4-8.9 [facility] Prothrombin Time INRon 04-28 INR Coag (PPP) [Relative time] 1.0 {INR} Normal [facility] Comment on above: Result Comment: INR [...] T, CMP, CBC, BNP, HS TROP, PTT ####[facility] [id number] [place] [id number] [facility] PT Coag (PPP) [Time] 11.8 s Normal 9.0-12.9 [facility] Comment on above: Result Comment: A he matocrit value greater than 55% may lead to inaccurate results in coagulation testing. Patients having hematocrit values >55% require a special collection tube for coagulation studies. Please contact the laboratory at [phone] for redraw instructions. Performed By: #### P T, CMP, CBC, BNP, HS TROP, PTT ####[facility] [id number] [place] [address] [facility] Prothrombin time (PT)Ordered By: Vinnie Rivas on 04-28-2023 PT Coag (PPP) [Time] 11.8 s 9.0-12.9 [facility] Comment on above: A hematocrit value g reater than 55% may lead to inaccurate results in coagulation testing. Patients having hematocrit values >55% require a special collection tube for coagulation studies. Please contact the laboratory at [phone] for redraw instructions. RBC Auto (Bld) [#/Vol]Ordere d By: Vinnie Rivas on 04-28-2023 RBC (Bld) [#/Vol] 4.12 10*6/uL 3.90-5.60 [facility] Serum or plasma albumin/glob ulin mass ratioOrdered By: Vinnie Rivas on 04-28-2023 Albumin/Globulin [Mass ratio] 1.3 {ratio} [facility] Serum or plasma anion gap de terminationOrdered By: Vinnie Rivas on 04-28-2023 Anion gap [Moles/Vol] 9.5 mmol/L 6.0-15.0 [facility] Sodium [Moles/volume] in Ser um or PlasmaOrdered By: Vinnie Rivas on 04-28-2023 Sodium [Moles/Vol] 136 mmol/L 136-145 [facility] Specific gravity Auto test s trip (U) [Rel density]Ordered By: Vinnie Rivas on 04-28-2023 Specific gravity (U) [Rel density] 1.009 1.001-1.03 0 [facility] Troponin I High Sensitivityo n 04-28-2023 Troponin I High Sensitivity 38.9 pg/mL High 0.0-20.0 [facility] Comment on above: Result Comment: PERF ORMED BY: [facility] [address] [facility] [place] [address] PATHOLOGIST BOROUGH COORDINATOR AIRAM MAST M.D. Performed By: #### H S TROP ####[facility] [place] [address] [facility] Troponin I High Sensitivity 38.6 pg/mL High 0.0-20.0 [facility] Comment on above: Result Comment: PERF ORMED BY: [facility] [address] [facility] [place] [address] PATHOLOGIST BOROUGH COORDINATOR AIRAM MAST M.D. Performed By: #### H S TROP ####[place] [id number] [facility] Troponin I High Sensitivity 38.3 pg/mL High 0.0-20.0 [facility] Comment on above: Result Comment: PERF ORMED BY: [facility] [address] [place] [address] PATHOLOGIST BOROUGH COORDINATOR AIRAM MAST M.D. Performed By: #### H S TROP ####[place] [id number] [facility] Troponin I High Sensitivity 35.5 pg/mL High 0.0-20.0 [facility] Comment on above: Result Comment: PERF ORMED BY: [facility] [address] [facility] [place] [address] PATHOLOGIST BOROUGH COORDINATOR AIRAM MAST M.D. Performed By: #### P T, CMP, CBC, BNP, HS TROP, PTT ####[place] [id number] [facility] Troponin I.cardiac [Mass/vol ume] in Serum or Plasma by Detection limit <= 0.01 ng/Ordered By: Vinnie Rivas on 04-28-2023 Troponin I.cardiac DL <= 0.01 ng/mL [Mass/Vol] 38.3 pg/mL 0.0-20.0 [facility] Urea nitrogen [Mass/volume] in Serum or PlasmaOrdered By: Vinnie Rivas on 04-28-2023 Urea nitrogen [Mass/Vol] 15 mg/dL 02-02 [facility] Urinalysison 04-28-2023 Appearance (U) Clear Normal Clear [facility] Comment on above: Order Comment: Name Collection Type:: Kimble Catheter Performed By: #### U A ####[place] [id number] [facility] Bilirubin,Urine Negative Normal Negative [facility] Comment on above: Order Comment: Name Collection Type:: Kimble Catheter Performed By: #### U A ####[address] [address] [facility] Glucose Ql (U) Normal Normal Normal [facility] Comment on above: Order Comment: Name Collection Type:: Kimble Catheter Performed By: #### U A ####[address] [address] [facility] Ketones Ql (U) Negative Normal Negative [facility] Comment on above: Order Comment: Name Collection Type:: Kimble Catheter Performed By: #### U A ####[address] [address] [facility] Leukocyte esterase Test strip Ql (U) Negative Normal Negative [facility] Comment on above: Order Comment: Name Collection Type:: Kimble Catheter Performed By: #### U A ####[address] [address] [facility] Nitrite,Urine Negative Normal Negative [facility] Comment on above: Order Comment: Name Collection Type:: Kimble Catheter Performed By: #### U A ####[address] [address] [facility] Occult Blood,Urine Negative Normal Negative [facility] Comment on above: Order Comment: Name Collection Type:: Kimble Catheter Result Comment: PERF ORMED BY: [facility] [address] [place] [id number] PATHOLOGIST BOROUGH COORDINATOR AIRAM MAST M.D. Performed By: #### U A ####[address] [address] [facility] Protein,Urine Negative Normal Negative [facility] Comment on above: Order Comment: Name Collection Type:: Kimble Catheter Performed By: #### U A ####[address] [address] [facility] Specificy [place],Urine 1.009 Normal 1.001-1.03 0 [facility] Comment on above: Order Comment: Name Collection Type:: Kimble Catheter Performed By: #### U A ####[address] [address] [facility] Urobilinogen,Urine Normal Normal Normal [facility] Comment on above: Order Comment: Name Collection Type:: Kimble Catheter Performed By: #### U A ####[place] [id number] [address] Urine clarity by refractomet ry automatedOrdered By: Vinnie Rivas on 04-28-2023 Clarity Refractometry automated (U) Clear Clear [facility] Urine glucose measurement by automated test strip (mass/volume)Ordered By: Vinnie Rivas on 04-28-2023 Glucose Auto test strip (U) [Mass/Vol] Normal mg/dL Normal [facility] Urine hemoglobin detection b y automated test stripOrdered By: Vinnie Rivas on 04-28-2023 Hemoglobin Auto test strip Ql (U) Negative Negative [facility] Urine leukocyte esterase det ection by automated test stripOrdered By: Vinnie Rivas on 04-28-2023 Leukocyte esterase Auto test strip Ql (U) Negative Negative [facility] Urine pH measurement by auto mated test stripOrdered By: Vinnie Rivas on 04-28-2023 pH (U) 6.5 [pH] Normal 5.0-9.0 [facility] Comment on above: Order Comment: Name Collection Type:: Kimble Catheter Performed By: #### U A ####[facility] Urobilinogen Auto test strip (U) [Mass/Vol]Ordered By: Vinnie Rivas on 04-28-2023 Urobilinogen (U) [Mass/Vol] Normal mg/dL Normal [facility] WBC Auto (Bld) [#/Vol]Ordere d By: Vinnie Rivas on 04-28-2023 WBC (Bld) [#/Vol] 9.7 10*3/uL 4.1-10.5 [facility] XR femur RT 2V*on 04-28-2023 XR femur RT 2V* [facility] [place] [address] [place] [id number] XRay Report Signed Patient: Ashwini Vickers MR#: [id number] : 1935 Acct:[id number] Age/Sex: 88 / M ADM Date: 04/28/23 Loc: ER Room: Type: [facility] ER Attending Dr: Copies to: Vinnie Rivas PA-C Ordering Provider: Vinnie Rivas PA-C Date of Service: 04/28/23 XR/XR chest 1V portable: Fall ([id number]) XR/XR femur RT 2V*: Fall ([id number]) XR/XR hip RT min 2V(w/wo pelvis)*: Fall [...] Sheldon Johnson M.D.04/28/2023 2:48 PM Dictation Location: [place] [address] Transcribed By: [facility] 04/28/23 1448 Dictated By: Sheldon Johnson DO 04/28/23 1437 Signed By: 04/28/[address] [facility] Coding Summaryon 04-26-2023 Coding Summary HTMLBase 64 LjetxwxcEVf3jUw+PGhlYWQ+PE 0PMBZlP55ehXGakO4uV8VEKPmX VnagCIPFABaUAmYrsrEmUY1apE NjZXJu IC8+PW2dAOSlKzjwoOWkp2F1cA W7C78ztd5iYNnxyDM6DZWmCiFp fkwvi1qzxSa6ISoiOqunFqCn LZPvyU36QMI4yO24Xx16zTKlsT Aio1lzsHj7SdItPCCcWCN7lDcr SZlti2IqDBGyI41beTBiu9G7 LOQcqHlnzRPlUbBtfFI9nQ9jNN mkylufw0bgehjiQef2eo38vGHw s1M3fAW0J8XlxlG6STMhuORc LaxlkESOkZ1puziqn7sjiolqKo LpFUZaCLp9BOa2CBTwoIuoAoDj BS00YHK4PSCwuhEqR4GzVXHt wWthLzO0t4H0St5OB1ZWEnxoA4 VNTUFSWTwvdGQ+ZH95fq44U2Xu EnuqFmv0LPMpVSV6gUV0aC6v QUNlFBttj7C2uBW2M5HaiiQtgo 7ij9tnDUQoCGroE49bkPKij7Y0 VCZhlUC6YKLxsSqrFwIsdL96 Oyc+AUYeiDpnl8CvUsdmh8txh8 pjiAl0QnlyULVjcuJliNovZDA0 w1RuJw9tWELzxRT6sEQ1yF0m JePjAjW0NNqfK550QvCaqQOeXy xzB54vK5SzhHV+EJNwCov3EAIj yMvxSV4fL5SiVOYheymijRMd rYzeLU5qQZYpdbagYZTqnJ3qCD VjB6e9GxMiKmA6EBfzD8ZdGDYc botyLh14fH6tMpDiPzK9ORdg S9OzttA1ESJdpRPsFGqbQFX6J6 3jr1N4WUDaXVDmBBS1qRW1kA2v bGlnbjogbGVmdDsgdmVydGlj AGqoQHkmU375KJDleCddJpChSM luZyBEYXRlOiAgMTAvMTYvMjAy MzwvdGQ+NKQcUOC6aFqhFGTb iUSsBAskYe6maAlckQabBV4xUW ScuygeXFNlwD2bHXRzoCEmsFbc EJ4aUPVowkbvc563DnVlZET8 JGEtwXQuA0IfjD1oAaZsVHRaFU IsS8DehPOgRQvzJ774YUyoRxP3 JSOmbnEdI8EmWGYyvHkgWjK4 e0B3Wr9Rp2AzienwG7TkhNCnYs DxDyuwZDb0O1ViShqiuDI+PC90 WGTxRC47FZc4KHH7cWohMOzm HDGvU6TzfU0oOxUaKJXkTMVhQl c+PHRhYmxlIHdpZHRoPScxMDAl AwFryZewKU8wGd2sEJJjYPKl iOzgsMFfYvTvf0cnGNXxERfyXF 3xpCalO4PdmZL8XEOae1z2Pt86 S83xW0MfbYX+RIMsyWY3xBW3 cN5iQdHkOwQ3SHpxA497FfMhbK VxNfejn8xqf1qqlUv2WlS4QBKj ylElyQxgOMB9f3UmGo76Z12d IHdpZHRoPSIxNSUiIHZhbGlnbj 5khK4aOs7+BQLhuNX4rWI4fC0b DzMuUyN2NZopI869NtRaeAIe Bctlb4jsg0xmhNm3KgNkTUKsqt KzvApyXOJ7d6LqUu47X0LuuNdi t9FtSyy4kw71tYVun7R2vRY0 G8MrACBbmbcxpJJblBqlLZ8fZI TtxqymPFNurN0kSVUmT7l9VtJb AuX8WWkwK6EqaiU5TBGhwIBw AUCdoTWRlW5yopglc6xxnifrOj KeQKXzAMa8PBm3DAXfzKjpXkNp WKW5NxE8EKV6uHCncH6jrSuq taoxoQ7sIid+AEC9iSMjpHFTNF 1lOjwvdGQ+EKJiJKL8tVuqQQnp IKRetQ3jGMZrO8l8AqLwGjB0 OQbiG6OzsxJ2QQMtfLSaQITdpX QJqM1xnjsej7snzlkoAnTeYIAe XHw8QMe6QBAwfRinCiNxANG9 GxJ0RRW0xWVbgW6nzXbvdylzpU 9wOyc+GdalhMczXWO4JXt8B7Xt Kqk7GSBuwAkyIU3wqFJcRCqm Xl6xyVlpsIinCM0jGQSqrqsdq3 52GvZev0evNTMtqTDhPVhpCMJ5 G01ua2L2MNEjASXyPLL8yQD6 iB0ymVxmdgaffAHrwZukscOazF sqCZuvKCxzU882JORmcUawOhIe TPm3D0WwLoa3HOTldMobMQ9b dRBhALmwLw1avNrruDhwDD8xDG Idorhjp652JmVne6xvKGXldABh GLkjVCM1Z78pz7D2XNZyDSKs KOX8oNF0dN4hdXsicbmymZQebF yzsnRpfGsbPRsbVLcrA588CINq nJoiKqCudMx8I7GpUjb4ODEj bNnzOU3weRSpCJdpZg8pjPkfnE vbJI9lOXYibmkoa013OeLsl8jy MPTefSUsBFuiERZ0H65kq8Z8 IRIzZJKmBRL0nVV7uH5xlBytiq ogbGVmdDsgdmVydGljYWwtYWxp W471BVWjfXtgRfIliLsfgzVo XCebCOp3R0VvEvxkeSX+PC90YW YlVV31eYZruKMuj5sdeCh8YvZi OPFyNEF0wKbpJXfwa8ZuANDh F78tbAGrr4I7ICKiqZvstBKtRu UvjYH5iI0eCVuxylgvj0ispkdi Ogqvl9zjij68iN57F88bGAcx DSFySAHgVTOrEUMtlFrxsz6hmU 9wIi8+JEGrbKD3oQB5mS1wWJOp EfU8CDlxJ720UoOmtKMxGidr w6buy4vwzYg1KqZ5ZVNlmmLbkY cpRTG6j6RbAu83Q01sPAfkYXZh VNVjACTrWUZgsVhlfl7liM5f Ii8+GRXspOO9wNM2kQ0nGkAvLl Z6FDzmV329ApAomOHtXgsdK69s T6RebNP+KHQhRuz1LXIaqWez DE9uoPKfVZynGy3oYDJ7SmUwWi LiWOcuU7IwVPRogyybwfaswSL3 MDVzQLOhiU29Ec3yeRsxDKHc rCQJiX0kwvsec3lqeyqaYwSwVR RbAVz3CQf5PGWgrDnwAwOnJZS1 NgD4DNX1gDYgqC8tfYygklpm eL1qI6LwXXGlcywfXz11kX8qKe MaFdR2OUulOmg+W1DMFh4EYAUG WX0VRHzbGkaevDG+PHRkIHN0 aLioPAwaBDJwnD0mOHDxW1w3Af NpKdU5DNhnC8MdLONectkyKz10 iF9xMwMzBuV9FFzlU9RenbP5 RTJnoDSxKHccMCF9K35ja4K2KI MhWXMaBHO8gGE0pB6xqThmdcfw bGVmdDsgdmVydGljYWwtYWxp O750BYChmTdvPsY5ZcYqDhR0Uv i0E2JlDds2UHZsnElcAG9moEZd ILinOu3ypBqcgZbaRP5mNVIj teqiPCWoeU8eMILunKWsqNaoKO 6wZIGrbqfzk028BzGzFAK8JAWp aWSnZ6BegY2lPzEiAKNaYBCy O4XanFWaJWmeA325VEmzRqN6OB SpduLgT3YjLGRugOhbPkX5w5A0 Tg27HzZUYVYoylucpCN+PHRk ZZL0eLebGQkmHCRyvG9fXNBeH6 s8YzZpCsK3TLgtV3HkCRYcwxni Wn67nV4lApWfJyL5LBseC3Lr hpG8CJHzwUIeTYoqMTY2Y39ab3 J4DUTnZXVcNNB9yHD9vR2jdCka bjogbGVmdDsgdmVydGljYWwt TWydB971FBWdxIvlGk4LMZU3U8 WwVtb4MBAyrAnqPO8dpABpJLyo Mh6ldKeouXhqKJ8vLSSjjihn YNLylD4sQQNxzPTdmXgvKD4rUY Drbvvlx031BpBeSTW2CMYvnBWu Q2QqfB0bPgNzCNBzFOUiF2Dc mVSdUJirD780ALnhTjO3VIZaux AsQ7GcULGbvKepUbJ0w9H2Uh1A UDwvdGQ+AW71sg98Y3NqRzsc Dsx2UFEoILU1gAZ6tZ5yFFDfIO fab5R3nEQ4U0FyvmQtux2jq8ng EHKkNYoeC00lpFDap0N6TGMl jVC7MDGglLlsQsCacU33Xhe+PG PdnUbgo2VnEiaaq9mlk8fnhYt8 PwAtELLtweXmzPrySVH6l9Jm Py47B93xOCkaROJyISUvZZEoEW PgcQvtix3vaT7iYe4+PGNvbCB3 yKX7qA7iXcFhPvF1XUyuD125 JzJkpRTuSptfd8pad8pvpVg1Cz AbVMDyjaYceCqbOUM4i4XrZn17 V9UatJzwd5MrWmi4tz72uOVb d1J3aCO7H7VtBSNbivrpnDKhjA cuQT6aLEDhwkzsFCIcsU4qTKQw B1m9HpReZsM1LGqmV8EfbhF8 XETwnPFmYXMwiZRRsO1ljrgar9 gykxvvVpXoLRGeLDo5RKi6ZWLj zTepLjSpNRN0GtG5QXD2hMCq dH3lrAgmmzxorF9uChj+UGh5c2 wpwZEwDA2zmKP7FL35PW22mLLi b5E8pFR0J4IkCUOzxleorgth kYQ6IDQjYGYgfM79Jn9yrFkaCf 0uWYXtHWO1WRSmyTTrB8LgfR9h WdBqWHAkIHSzF2PxcFEvMGny K147BFenFiA2OQSebnDfS5QiWY VleAtbVoT4u2D5Km4WCA14DI39 OX53vEWsh1F5iYU7D6JoYSOx gdljooqpiSX5UWOgRIKsmJ94Rb 7clGghJi6eGNPsEAK9HBSfyYPx G1DmhW4tWnBmPYKqIOPxA7Ny wOIgXLqtG369JWuvXzR8EXTeyq BhZ3GdICKmqLwfHpF1m7C6Ed3I Bx47RY82WZ49vQXby4S7yDW6 Y8JnTWXbuviaujxkxXI9SXVuDY AugZ05Pc4foYawGp1yZIFaBVT1 REDwtCJeU3QuyN5oCtHtGUNm OSLkB0CvmZCoOIvxP376ZQluYn L3HWTgcxVcK9HoFLRzfGhfYpD7 g9Y8Rq9BRAyhtyy3F6NfKzzv dHI+YW04DFRnWO56fVYeqMMyx5 dxnIq5JdVxCLFaWQN4lSnsSVrh q7ViZFAxM19heNXdb9Q8OZPk bGx (more content not included)... [facility] Consent Formson 04-26-2023 Consent Forms [id number] [facility] BUN/Creat Ratioon 04-23-2023 eGFR Non AA >60 Invalid Interpretation Code [facility] Comment on above: Performed By: #### 1 [id number] #### [facility] (DEFAULT) [address] [place] [address] eGFR AA >60 Invalid Interpretation Code [facility] Comment on above: Performed By: #### 1 [id number] #### [facility] (DEFAULT) [address] [place] [address] Creatinine [Mass/Vol] 0.69 mg/dL Low 0.90-1.30 [facility] Comment on above: Performed By: #### 1 [id number] #### [facility] (DEFAULT) [address] [place] [address] Urea nitrogen [Mass/Vol] 14 mg/dL Normal 8-26 [facility] Comment on above: Performed By: #### 1 [id number] #### [facility] (DEFAULT) [address] [place] [address] Urea nitrogen/Creatinine [Mass ratio] 20.2 mg/mg High 4.6-16.2 [facility] Comment on above: Performed By: #### 1 [id number] #### [facility] (DEFAULT) [address] [place] [address] Urogramon 04-23-2023 CT Urogram CLINICAL HISTORY: [...] MD 04/23/23 3:17 pm Technologist: DARYA MANN [facility] Provider Orderson 04-21-2023 Provider Orders [id number] F [facility] Provider Orderson 03-16-2023 Provider Orders [id number]#[id number] [facility] UA RANDOMon 06-05-2022 Bilirubin Ql (U) Negative Normal NEGATIVE [facility] Comment on above: Performed By: #### C MP, LIPID #### [facility] [address] [address] [address] Kylee Bunch Clarity (U) CLEAR Normal CLEAR [facility] Comment on above: Performed By: #### C MP, LIPID #### [facility] [address] [place], [place] [address] Dr. Kylee Bunch Color (U) YELLOW Normal YELLOW [facility] Comment on above: Performed By: #### C MP, LIPID #### [facility] [address] [address] [address] Kylee Bunch Glucose Ql (U) Negative Normal NEGATIVE [facility] Comment on above: Performed By: #### C MP, LIPID #### [facility] [address] [address] [address] Kylee Bunch Hemoglobin Ql (U) TRACE-INTACT Abnormal NEGATIVE [facility] Comment on above: Performed By: #### C MP, LIPID #### [facility] [address] [address] [address] Kylee Bunch Ketones Ql (U) TRACE Abnormal NEGATIVE [facility] Comment on above: Performed By: #### C MP, LIPID #### [facility] [address] [place] [address] Dr. Kylee Bunch LEUKOCYTES Negative Normal NEGATIVE [facility] Comment on above: Performed By: #### C MP, LIPID #### [facility] [address] [address] [address] Kylee Bunch Nitrite Ql (U) Negative Normal NEGATIVE [facility] Comment on above: Performed By: #### C MP, LIPID #### [facility] [address] [place] [address] Dr. Kylee Bunch pH (U) 5.5 [pH] Normal 5-9 [facility] Comment on above: Performed By: #### C MP, LIPID #### [facility] [address] [place] [address] Dr. Kylee Bunch SPEC GRAVITY >=1.030 Abnormal 1.005-<=1. 025 [facility] Comment on above: Performed By: #### C MP, LIPID #### [facility] [address] [place] [address] Dr. Kylee Bunch UA PROTEIN Negative Normal NEGATIVE/ TRACE [facility] Comment on above: Performed By: #### C MP, LIPID #### [facility] [address] [place] [address] Dr. Kylee Bunch Urobilinogen Qn (U) 0.2 {Gemini'U}/dL Normal 0.2 - 1. 0 [facility] Comment on above: Performed By: #### C MP, LIPID #### [facility] [address] [place] [address] Dr. Kylee Bunch CBC AUTO DIFFon 05-14-2022 BASO # 0.0 103/ul Normal 0.0-0.1 [facility] Comment on above: Performed By: #### C MP, LIPID #### [facility] [address] [place] [address] Dr. Kylee Bunch Basophils/100 WBC (Bld) 0.7 % Normal 0.2-2.0 [facility] Comment on above: Performed By: #### C MP, LIPID #### [facility] [address] [place] [address] Dr. Kylee Bunch EO # 0.1 103/ul Normal 0.0-0.7 [facility] Comment on above: Performed By: #### C MP, LIPID #### [facility] [address] [place] [address] Dr. Kylee Bunch Eosinophils/100 WBC (Bld) 2.6 % Normal 0.9-7.0 [facility] Comment on above: Performed By: #### C MP, LIPID #### [facility] [address] [place] [address] Dr. Kylee Bunch Erythrocyte distribution width (RBC) [Ratio] 17.2 % Critically high 11.0-15.0 [facility] Comment on above: Performed By: #### C MP, LIPID #### [facility] [address] [place] [address] Dr. Kylee Bunch Hematocrit (Bld) [Volume fraction] 36.1 % Critically low 42.0-54.0 [facility] Comment on above: Performed By: #### C MP, LIPID #### [facility] [address] [place] [address] Dr. Kylee Bunch Hemoglobin (Bld) [Mass/Vol] 12.1 g/dL Critically low 14.0-18.0 [facility] Comment on above: Performed By: #### C MP, LIPID #### [facility] [address] [place] [address] Dr. Kylee Bunch IG # 0.01 10e3/ul Normal 0.00-0.03 [facility] Comment on above: Performed By: #### C MP, LIPID #### [facility] [address] [address] [address] Kylee Bnuch IG % 0.2 % Normal 0.0-0.5 [facility] Comment on above: Performed By: #### C MP, LIPID #### [facility] [address] [place] [address] Dr. Kylee Bunch LYMPH # 1.7 103/ul Normal 1.2-3.8 [facility] Comment on above: Performed By: #### C MP, LIPID #### [facility] [address] [place] [address] Dr. Kylee Bunch Lymphocytes/100 WBC (Bld) 30.9 % Normal 20.5-60.0 [facility] Comment on above: Performed By: #### C MP, LIPID #### [facility] [address] [place] [address] Dr. Kylee Bunch MANUAL DIFF REQ NO Normal [facility] Comment on above: Performed By: #### C MP, LIPID #### [facility] [address] [place] [address] Dr. Kylee Bunch MCH (RBC) [Entitic mass] 27.4 pg Normal 25.9-34.0 [facility] Comment on above: Performed By: #### C MP, LIPID #### [facility] [address] [place] [address] Dr. Kylee Bunch MCHC (RBC) [Mass/Vol] 33.5 g/dL Normal 29.9-35.2 [facility] Comment on above: Performed By: #### C MP, LIPID #### [facility] [address] [place] [address] Dr. Kylee Bunch MCV (RBC) [Entitic vol] 81.9 fL Normal 80.0-94.0 [facility] Comment on above: Performed By: #### C MP, LIPID #### [facility] [address] [address] [address] Kylee Bunch MONO # 0.7 103/ul Normal 0.3-0.8 [facility] Comment on above: Performed By: #### C MP, LIPID #### [facility] [address] [address] [address] Kylee Bunch Monocytes/100 WBC (Bld) 12.9 % Critically high 1.7-12.0 [facility] Comment on above: Performed By: #### C MP, LIPID #### [facility] [address] [address] [address] Kylee Bunch NEUT # 2.9 103/ul Normal 1.4-6.5 [facility] Comment on above: Performed By: #### C MP, LIPID #### [facility] [address] [address] [address] Kylee Bunch Neutrophils/100 WBC (Bld) 52.7 % Normal 43.0-75.0 [facility] Comment on above: Performed By: #### C MP, LIPID #### [facility] [address] [address] [address] Kylee Bunch PLT 213 103/ul Normal 150-450 [facility] Comment on above: Performed By: #### C MP, LIPID #### [facility] [address] [address] [address] Kylee Bunch RBC 4.41 106/ul Critically low 4.70-6.10 [facility] Comment on above: Performed By: #### C MP, LIPID #### [facility] [address] [address] [address] Kylee Bunch WBC 5.4 103/ul Normal 4.0-11.0 [facility] Comment on above: Performed By: #### C MP, LIPID #### [facility] [address] [address] [address] Kylee Bunch LIPID PROFILEon 05-14-2022 CHOL-HDL RATIO NORM SEE BELOW Normal [facility] Comment on above: Result Comment: 3.3 - 4.4 LOW RISK 4.4 - 7.1 AVERAGE RISK 7.1 - 11.0 MODERATE RISK >11.0 HIGH RISK Performed By: #### C MP, LIPID #### [facility] [address] [address] [address] Kylee Bunch Cholesterol [Mass/Vol] 166 mg/dL Normal <=200 [facility] Comment on above: Performed By: #### C MP, LIPID #### [facility] [address] [address] [address] Kylee Bunch Cholesterol in HDL [Mass/Vol] 71 mg/dL Critically high 40-60 [facility] Comment on above: Performed By: #### C MP, LIPID #### [facility] [address] [address] [address] Kylee Bunch Cholesterol in LDL [Mass/Vol] 84.8 mg/dL Normal [facility] Comment on above: Performed By: #### C MP, LIPID #### [facility] [address] [address] [address] Kylee Bunch Cholesterol.total/Cho lesterol in HDL [Mass ratio] 2.3 {ratio} Normal [facility] Comment on above: Performed By: #### C MP, LIPID #### [facility] [address] [address] [address] Kylee Bunch HDL NORMAL > or = 60 mg/dl - LO W CARDIOVASCULAR RISK <40 mg/dl - HIGH CARDIOVASCULAR RISK Normal [facility] Comment on above: Performed By: #### C MP, LIPID #### [facility] [address] [address] [address] Kylee Bunch LDL CALC NORMAL SEE BELOW Normal [facility] Comment on above: Result Comment: <100 mg/dl OPTIMAL 100 - 129 mg/dl NEAR OR ABOVE OPTIMAL 130 - 159 mg/dl BORDERLINE HIGH 160 - 189 mg/dl HIGH >190 mg/dl VERY HIGH Performed By: #### C MP, LIPID #### [facility] [address] [address] [address] Kylee Bunch Triglyceride [Mass/Vol] 51 mg/dL Normal <=150 [facility] Comment on above: Performed By: #### C MP, LIPID #### [facility] [address] [place] [address] Dr. Kylee Bunch VLDL CALC 10.2 mg/dL Normal [facility] Comment on above: Performed By: #### C MP, LIPID #### [facility] [address] [place] [address] Dr. Kylee Bunch MICROALBUMIN, RAND URon 11-0 mALB 3.0 mg/L Normal <=30.0 [facility] Comment on above: Performed By: #### M ALBR #### [facility] [address] [place] [address] Dr. Kylee Bunch PROF 14(COMP METB)on 022 Albumin [Mass/Vol] 3.5 g/dL Normal 3.4-5.0 [facility] Comment on above: Performed By: #### C MP, LIPID #### [facility] [address] [place] [address] Dr. Kylee Bunch Albumin/Globulin [Mass ratio] 1.0 {ratio} Normal [facility] Comment on above: Performed By: #### C MP, LIPID #### [facility] [address] [place] [address] Dr. Kylee Bunch ALP [Catalytic activity/Vol] 97 U/L Normal 46-116 [facility] Comment on above: Performed By: #### C MP, LIPID #### [facility] [address] [place] [address] Dr. Kylee Bunch ALT [Catalytic activity/Vol] 29 U/L Normal 16-63 [facility] Comment on above: Performed By: #### C MP, LIPID #### [facility] [address] [place] [address] Dr. Kylee Bunch Anion gap [Moles/Vol] 6.7 mmol/L Normal [facility] Comment on above: Performed By: #### C MP, LIPID #### [facility] [address] [place] [address] Dr. Kylee Bunch AST [Catalytic activity/Vol] 28 U/L Normal 15-37 [facility] Comment on above: Performed By: #### C MP, LIPID #### [facility] [address] [address] [address] Kylee Bunch Bilirubin [Mass/Vol] 0.4 mg/dL Normal 0.2-1.0 [facility] Comment on above: Performed By: #### C MP, LIPID #### [facility] [address] [place] [address] Dr. Kylee Bunch Calcium [Mass/Vol] 8.9 mg/dL Normal 8.5-10.1 [facility] Comment on above: Performed By: #### C MP, LIPID #### [facility] [address] [place] [address] Dr. Kylee Bunch Chloride [Moles/Vol] 99 mmol/L Normal 98-107 [facility] Comment on above: Performed By: #### C MP, LIPID #### [facility] [address] [place] [address] Dr. Kylee Bunch CO2 [Moles/Vol] 33.4 mmol/L Critically high 21.0-32.0 [facility] Comment on above: Performed By: #### C MP, LIPID #### [facility] [address] [place] [address] Dr. Kylee Bunch Creatinine [Mass/Vol] 0.80 mg/dL Normal 0.70-1.30 [facility] Comment on above: Performed By: #### C MP, LIPID #### [facility] [address] [place] [address] Dr. Kylee Bunch EGFR-AF FAROESE >60 Normal >=60 [facility] Comment on above: Performed By: #### C MP, LIPID #### [facility] [address] [place] [address] Dr. Kylee Bunch EGFR-NON AF FAROESE >60 Normal >=60 [facility] Comment on above: Performed By: #### C MP, LIPID #### [facility] [address] [place] [address] Dr. Kylee Bunch Globulin (S) [Mass/Vol] 3.4 g/dL Normal [facility] Comment on above: Performed By: #### C MP, LIPID #### [facility] [address] [place] [address] Dr. Kylee Bunch Glucose [Mass/Vol] 188 mg/dL Critically high 74-106 [facility] Comment on above: Performed By: #### C MP, LIPID #### [facility] [address] [place] [address] Dr. Kylee Bunch Potassium [Moles/Vol] 4.1 mmol/L Normal 3.5-5.1 [facility] Comment on above: Performed By: #### C MP, LIPID #### [facility] [address] [place] [address] Dr. Kylee Bunch Protein [Mass/Vol] 6.9 g/dL Normal 6.4-8.2 [facility] Comment on above: Performed By: #### C MP, LIPID #### [facility] [address] [place] [address] Dr. Kylee Bunch Sodium [Moles/Vol] 135 mmol/L Critically low 136-145 [facility] Comment on above: Performed By: #### C MP, LIPID #### [facility] [address] [place] [address] Dr. Kylee Bunch Urea nitrogen [Mass/Vol] 15.0 mg/dL Normal 7.0-18.0 [facility] Comment on above: Performed By: #### C MP, LIPID #### [facility] [address] [place] [address] Dr. Kylee Bunch Urea nitrogen/Creatinine [Mass ratio] 18.8 mg/mg Normal [facility] Comment on above: Performed By: #### C MP, LIPID #### [facility] [address] [place] [address] Dr. Kylee Bunch UA RANDOM W/MICROSCOPICon BACTERIA NONE SEEN Normal NONE SEEN [facility] Comment on above: Performed By: #### C MP, LIPID #### [facility] [address] [place] [address] Dr. Kylee Bunch Bilirubin Ql (U) Negative Normal NEGATIVE [facility] Comment on above: Performed By: #### C MP, LIPID #### [facility] [address] [place] [address] Dr. Kylee Bunch CAST NONE SEEN Normal NONE SEEN [facility] Comment on above: Performed By: #### C MP, LIPID #### [facility] [address] [address] [address] Kylee Bunch Clarity (U) CLEAR Normal CLEAR [facility] Comment on above: Performed By: #### C MP, LIPID #### [facility] [address] [address] [address] Kylee Bunch Color (U) LT. YELLOW Normal YELLOW [facility] Comment on above: Performed By: #### C MP, LIPID #### [facility] [address] [address] [address] Kylee Bunch Crystals LM Nom (Urine sed) NONE SEEN Normal NONE SEEN [facility] Comment on above: Performed By: #### C MP, LIPID #### [facility] [address] [place] [address] Dr. Kylee Bunch Epithelial cells LM Ql (Urine sed) FEW Abnormal NONE SEEN /RARE [facility] Comment on above: Performed By: #### C MP, LIPID #### [facility] [address] [place] [address] Dr. Kylee Bunch Glucose Ql (U) Negative Normal NEGATIVE [facility] Comment on above: Performed By: #### C MP, LIPID #### [facility] [address] [address] [address] Kylee Bunch Hemoglobin Ql (U) TRACE-LYSED Abnormal NEGATIVE [facility] Comment on above: Performed By: #### C MP, LIPID #### [facility] [address] [address] [address] Kylee Bunch Ketones Ql (U) Negative Normal NEGATIVE [facility] Comment on above: Performed By: #### C MP, LIPID #### [facility] [address] [address] [address] Kylee Bunch LEUKOCYTES Negative Normal NEGATIVE [facility] Comment on above: Performed By: #### C MP, LIPID #### [facility] [address] [place] [address] Dr. Kylee Bunch MUCOUS NONE SEEN Normal NONE SEEN [facility] Comment on above: Performed By: #### C MP, LIPID #### [facility] [address] [address] [address] Kylee Bunch Nitrite Ql (U) Negative Normal NEGATIVE [facility] Comment on above: Performed By: #### C MP, LIPID #### [facility] [address] [address] [address] Kylee Bunch pH (U) 6.0 [pH] Normal 5-9 [facility] Comment on above: Performed By: #### C MP, LIPID #### [facility] [address] [address] [address] Kylee Bunch RBC 2-5 Abnormal 0-2 [facility] Comment on above: Performed By: #### C MP, LIPID #### [facility] [address] [place] [address] Dr. Kylee Bunch SPEC GRAVITY 1.020 Normal 1.005-<=1. 025 [facility] Comment on above: Performed By: #### C MP, LIPID #### [facility] [address] [address] [address] Kylee Bunch UA PROTEIN Negative Normal NEGATIVE/ TRACE [facility] Comment on above: Performed By: #### C MP, LIPID #### [facility] [address] [place] [address] Dr. Kylee Bunch Urobilinogen Qn (U) 0.2 {Gemini'U}/dL Normal 0.2 - 1. 0 [facility] Comment on above: Performed By: #### C MP, LIPID #### [facility] [address] [place] [address] Dr. Kylee Bunch WBC NONE SEEN Normal NONE SEEN [facility] Comment on above: Performed By: #### C MP, LIPID #### [facility] [address] [place] [address] Dr. Kylee Bunch Basic Metab w/rfx MGon 01-07 (cont.) Normal [facility] Comment on above: Result Comment: Aver age GFR for 70 or more years old: 75 mL/min/1.73sq m Chronic Kidney Disease: <60 mL/min/1.73sq m Kidney failure: <15 mL/min/1.73sq m eGFR calculated using average adult body mass. Additional eGFR calculator available at: http://www.netprice.com.[employer]/multiple_crcl_2012.htm Performed By: #### C DP, MELVIN, BMPX, MG, IPF #### [facility] [address] [place] [address] Chief Librarian Music Department: Francisco J Fonseca MD Anion gap [Moles/Vol] 9 mmol/L Normal 9-17 [facility] Comment on above: Performed By: #### C DP, MELVIN, BMPX, MG, IPF #### [facility] [address] [place] [address] Chief Librarian Music Department: Francisco J Fonseca MD Calcium [Mass/Vol] 7.8 mg/dL Low 8.6-10.4 [facility] Comment on above: Performed By: #### C DP, MELVIN, BMPX, MG, IPF #### [facility] [employer] [address] [place] [address] Chief Librarian [employer] Department: Francisco J Fonseca MD Chloride [Moles/Vol] 102 mmol/L Normal 98-107 [facility] Comment on above: Performed By: #### C DP, MELVIN, BMPX, MG, IPF #### [facility] [employer] [address] [place] [address] Chief Librarian [employer] Department: Francisco J Fonseca MD CO2 [Moles/Vol] 24 mmol/L Normal 20-31 [facility] Comment on above: Performed By: #### C DP, MELVIN, BMPX, MG, IPF #### [facility] [employer] [address] [place] [address] Chief Librarian [employer] Department: Francisco J Fonseca MD Creatinine [Mass/Vol] 0.49 mg/dL Low 0.70-1.20 [facility] Comment on above: Performed By: #### C DP, MELVIN, BMPX, MG, IPF #### [address] [address] Chief Librarian [employer] Department: Francisco J Fonseca MD GFR, Amer >60 Normal >60 [facility] Comment on above: Performed By: #### C DP, MELVIN, BMPX, MG, IPF #### [address] [address] Chief Librarian [employer] Department: Francisco J Fonseca MD GFR,non Amer >60 Normal >60 [facility] Comment on above: Performed By: #### C DP, MELVIN, BMPX, MG, IPF #### [address] [address] Chief Librarian [employer] Department: Francisco J Fonseca MD Glucose [Mass/Vol] 79 mg/dL Normal 70-99 [facility] Comment on above: Performed By: #### C DP, MELVIN, BMPX, MG, IPF #### [address] [address] Chief Librarian Music Department: Francisco J Fonseca MD Potassium [Moles/Vol] 3.5 mmol/L Low 3.7-5.3 [facility] Comment on above: Performed By: #### C DP, MELVIN, BMPX, MG, IPF #### [address] [address] Chief Librarian Music Department: Francisco J Fonseca MD Sodium [Moles/Vol] 135 mmol/L Normal 135-144 [facility] Comment on above: Performed By: #### C DP, MELVIN, BMPX, MG, IPF #### [address] [address] Chief Librarian Music Department: Francisco J Fonseca MD Urea nitrogen [Mass/Vol] 7 mg/dL Low 8-23 [facility] Comment on above: Performed By: #### C DP, MELVIN, BMPX, MG, IPF #### [facility] [employer] [address] [place] [address] Chief Librarian Music Department: Francisco J Fonseca MD CBC with Diffon 01-07-2022 Abs. Basophil 0.00 k/uL Normal 0.0-0.2 [facility] Comment on above: Performed By: #### C DP #### [address] [address] Chief Librarian [employer] Department: Francisco J Fonseca MD Abs.Imm.Granulocyte 0.00 k/uL Normal 0.00-0.30 [facility] Comment on above: Performed By: #### C DP #### [place] [address] Chief Librarian Music Department: Francisco J Fonseca MD Abs.Neutrophil (Seg) 8.33 k/uL High 1.8-7.7 [facility] Comment on above: Performed By: #### C DP #### [place] [address] Chief Librarian Music Department: Francisco J Fonseca MD Eosinophils (Bld) [#/Vol] 0.11 10*3/uL Normal 0.0-0.4 [facility] Comment on above: Performed By: #### C DP #### [place] [address] Chief Librarian Music Department: Francisco J Fonseca MD Lymphocytes (Bld) [#/Vol] 1.22 10*3/uL Normal 1.0-4.8 [facility] Comment on above: Performed By: #### C DP #### [address] [address] Chief Librarian Music Department: Francisco J Fonseca MD Monocytes (Bld) [#/Vol] 1.44 10*3/uL High 0.1-0.8 [facility] Comment on above: Performed By: #### C DP #### [place] [address] Chief Librarian Music Department: Francisco J Fonseca MD Neutrophil (Seg) 75 % High 36-66 [facility] Comment on above: Performed By: #### C DP #### [address] [address] Chief Librarian Music Department: Francisco J Fonseca MD NRBC Automated 0.0 per 100 WBC Normal 0.0 [facility] Comment on above: Performed By: #### C DP #### [address] [address] Chief Librarian Music Department: Francisco J Fonseca MD WBC (Bld) [#/Vol] 11.1 10*3/uL Normal 3.5-11.3 [facility] Comment on above: Performed By: #### C DP #### [address] [address] Chief Librarian Music Department: Francisco J Fonseca MD Basophils/100 WBC (Bld) 0 % Normal 0-2 [facility] Comment on above: Performed By: #### C DP #### [address] [address] Chief Librarian Music Department: Francisco J Fonseca MD Eosinophils/100 WBC (Bld) 1 % Normal 1-4 [facility] Comment on above: Performed By: #### C DP #### [address] [address] Chief Librarian Music Department: Francisco J Fonseca MD Immature granulocytes/100 WBC (Bld) 0 % Normal 0 [facility] Comment on above: Performed By: #### C DP #### [address] [address] Chief Librarian Music Department: Francisco J Fonseca MD Lymphocytes/100 WBC (Bld) 11 % Low 24-44 [facility] Comment on above: Performed By: #### C DP #### [address] [address] Chief Librarian Music Department: Francisco J Fonseca MD Monocytes/100 WBC (Bld) 13 % High 1-7 [facility] Comment on above: Performed By: #### C DP #### [address] [address] Chief Librarian Music Department: Francisco J Fonseca MD Morphology Walter (Bld) [Interp] ANISOCYTOSIS PRESENT Normal [facility] Comment on above: Result Comment: MICR OCYTOSIS PRESENT 1+ TARGET CELLS 1+ ACANTHOCYTES Performed By: #### C DP #### [address] [address] Chief Librarian Music Department: Francisco J Fonseca MD Erythrocyte distribution width (RBC) [Ratio] 17.3 % High 11.8-14.4 [facility] Comment on above: Performed By: #### C DP #### [address] [address] Chief Librarian Music Department: Francisco J Fonseca MD Hematocrit (Bld) [Volume fraction] 36.6 % Low 40.7-50.3 [facility] Comment on above: Performed By: #### C DP #### [address] [address] Chief Librarian Music Department: Francisco J Fonseca MD Hemoglobin (Bld) [Mass/Vol] 13.0 g/dL Normal 13.0-17.0 [facility] Comment on above: Performed By: #### C DP #### [address] [address] Chief Librarian Music Department: Francisco J Fonseca MD MCH (RBC) [Entitic mass] 26.5 pg Normal 25.2-33.5 [facility] Comment on above: Performed By: #### C DP #### [address] [address] Chief Librarian Music Department: Francisco J Fonseca MD MCHC (RBC) [Mass/Vol] 35.5 g/dL High 28.4-34.8 [facility] Comment on above: Performed By: #### C DP #### [address] [place] [address] Chief Librarian Music Department: Francisco J Fonseca MD MCV (RBC) [Entitic vol] 74.5 fL Low 82.6-102.9 [facility] Comment on above: Performed By: #### C DP #### [address] [address] Chief Librarian Music Department: Francisco J Fonseca MD Platelet Count See Reflexed IPF Result Normal 138-453 [facility] Comment on above: Performed By: #### C DP #### [address] [address] Chief Librarian Music Department: Francisco J Fonseca MD RBC (Bld) [#/Vol] 4.91 10*6/uL Normal 4.21-5.77 [facility] Comment on above: Performed By: #### C DP #### [address] [address] Chief Librarian Music Department: Francisco J Fonseca MD Laboratory - Chemistry and C hemistry - challenge 01-07-2022 Magnesium [Mass/Vol] 1.5 mg/dL Low 1.6 - 2 .6 mg/dL [facility] Anion gap [Moles/Vol] 9 mmol/L 9 - 17 mmol/L [facility] [employer] Calcium [Mass/Vol] 7.8 mg/dL Low 8.6 - 10. 4 mg/dL [facility] [employer] Chloride [Moles/Vol] 102 mmol/L 98 - 10 7 mmol/L [facility] [employer] CO2 [Moles/Vol] 24 mmol/L 20 - 31 mmol/L [facility] Creatinine [Mass/Vol] 0.49 mg/dL Low 0.70 - 1.20 mg/dL [facility]ISE[facility] GFR/1.73 sq M.predicted MDRD (S/P/Bld) [Vol rate/Area] [facility] [employer] Comment on above: Average GFR for 70 o r more years old: 75 mL/min/1.73sq m Chronic Kidney Disease: <60 mL/min/1.73sq m Kidney failure: <15 mL/min/1.73sq m eGFR calculated using average adult body mass. Additional eGFR calculator available at: http://www.[employer]/multiple_crcl_2012.htm Glucose [Mass/Vol] 79 mg/dL 70 - 99 mg/dL [facility] Phosphate [Mass/Vol] 2.3 mg/dL Low 2.5 - 4 .5 mg/dL [facility] Potassium [Moles/Vol] 3.5 mmol/L Low 3.7 - 5.3 mmol/L [facility] Sodium [Moles/Vol] 135 mmol/L 135 - 144 mmol/L [facility] Urea nitrogen (BldV) [Mass/Vol] 7 mg/dL Low 8 - 23 mg/dL [facility] Laboratory - Hematology and Cell countson 01-07-2022 Basophils (Bld) [#/Vol] 0.00 10*3/uL [facility] Hematocrit (Bld) [Volume fraction] 36.6 % Low 40.7 - 50.3 % [facility] Hemoglobin (Bld) [Mass/Vol] 13.0 g/dL 13.0 - 17.0 g/dL [facility] MCH (RBC) [Entitic mass] 26.5 pg 25.2 - 33.5 pg [facility] MCHC (RBC) [Mass/Vol] 35.5 g/dL High 28.4 - 34.8 g/dL [facility] MCV (RBC) [Entitic vol] 74.5 fL Low 82.6 - 102.9 fL [facility] Morphology Walter (Bld) [Interp] MICROCYTOSIS PRESENT [facility] Morphology Walter (Bld) [Interp] 1+ TARGET CELLS [facility] Morphology Walter (Bld) [Interp] 1+ ACANTHOCYTES [facility] Platelet distribution width (Bld) [Ratio] 17.3 % High 11.8 - 14.4 % [facility] Platelets (Bld) [#/Vol] See Reflexed IPF Result [facility] RBC (Bld) [#/Vol] 4.91 10*6/uL 4.21 - 5.77 m/uL [facility] Segmented neutrophils/100 WBC (Bld) 75 % High 36 - 66 % [facility] WBC (Bld) [#/Vol] 11.1 10*3/uL [facility] Magnesiumon 01-07-2022 Magnesium [Mass/Vol] 1.5 mg/dL Low 1.6-2.6 [facility] Comment on above: Performed By: #### C DP #### [facility] [address] [place] [address] Chief Librarian Music Department: Francisco J Fonseca MD No Panel Informationon 01-07 Absolute Eos # 0.11 [facility] Absolute Immature Granulocyte 0.00 [facility] Absolute Lymph # 1.22 [facility] Absolute Maui # 1.44 High [facility] Interpretation and review of laboratory results Abnormal [facility] NRBC Automated 0.0 0.0 per 100 WBC [facility] Segs Absolute 8.33 High [facility] Platelet, Fluorescence 230 [facility] Comment on above: ORDERED BY LAB Platelet, Immature Fraction 10.1 % 1.1 - 10.3 % [facility] Comment on above: ORDERED BY LAB [facility] Interpretation and review of laboratory results Abnormal [facility] GFR >60 >60 mL/min [facility] GFR Non- >60 >60 mL/min [facility] Interpretation and review of laboratory results Abnormal [facility] PLT, Immature Fract.on 01-07 Platelet, Fluoresc. 230 k/uL Normal 138-453 [facility] Comment on above: Result Comment: ORDE RED BY LAB Performed By: #### C DP #### [facility] [address] [place] [address] Chief Librarian Music Department: Francisco J Fonseca MD PLT, Immature Fract. 10.1 % Normal 1.1-10.3 [facility] Comment on above: Result Comment: ORDE RED BY LAB Performed By: #### C DP #### [facility] [address] [place] [address] Chief Librarian Music Department: Francisco J Fonseca MD Phosphorus, Inorg.on 022 Phosphorus, Inorg. 2.3 mg/dL Low 2.5-4.5 [facility] Comment on above: Performed By: #### C DP, MELVIN, BMPX, MG, IPF #### [facility] [address] [place] [address] 22347 Chief Librarian Music Department: Francisco J Fonseca MD Basic Metab w/rfx MGon 01-06 (cont.) Normal [facility] Comment on above: Result Comment: Aver age GFR for 70 or more years old: 75 mL/min/1.73sq m Chronic Kidney Disease: <60 mL/min/1.73sq m Kidney failure: <15 mL/min/1.73sq m eGFR calculated using average adult body mass. Additional eGFR calculator available at: http://www.[employer]/multiple_crcl_2012.htm Performed By: #### C DP, MELVIN, BMPX, IPF #### [facility] [address] [place] [address]808 Chief Librarian Music Department: Francisco J Fonseca MD Anion gap [Moles/Vol] 11 mmol/L Normal 9-17 [facility] Comment on above: Performed By: #### C DP, MELVIN, BMPX, IPF #### [facility] [address] [place] [address] 38383 Chief Librarian Music Department: Francisco J Fonseca MD Calcium [Mass/Vol] 7.7 mg/dL Low 8.6-10.4 [facility] Comment on above: Performed By: #### C DP, MELVIN, BMPX, IPF #### [facility] [address] [place] [address] Chief Librarian Music Department: Francisco J Fonseca MD Chloride [Moles/Vol] 99 mmol/L Normal 98-107 [facility] Comment on above: Performed By: #### C DP, MELVIN, BMPX, IPF #### [facility] [address] [place] [address]202 Chief Librarian Music Department: Francisco J Fonseca MD CO2 [Moles/Vol] 23 mmol/L Normal 20-31 [facility] Comment on above: Performed By: #### C DP, MELVIN, BMPX, IPF #### [facility] [address] [place] [address] 06243 Chief Librarian Music Department: Francisco J Fonseca MD Creatinine [Mass/Vol] 0.50 mg/dL Low 0.70-1.20 [facility] Comment on above: Performed By: #### C DP, MELVIN, BMPX, IPF #### [facility] [address] [place] [address] 00632 Chief Librarian Music Department: Francisco J Fonseca MD GFR, Amer >60 Normal >60 [facility] Comment on above: Performed By: #### C DP, MELVIN, BMPX, IPF #### [facility] [address] [place] [address] 24443 Chief Librarian Music Department: Francisco J Fonseca MD GFR,non Amer >60 Normal >60 [facility] Comment on above: Performed By: #### C DP, MELVIN, BMPX, IPF #### [facility] [address] [place] [address]35 Chief Librarian Music Department: Francisco J Fonseca MD Glucose [Mass/Vol] 149 mg/dL High 70-99 [facility] Comment on above: Performed By: #### C DP, MELVIN, BMPX, IPF #### [facility] [address] [place] [address] 17702 Chief Librarian Music Department: Francisco J Fonseca MD Potassium [Moles/Vol] 3.6 mmol/L Low 3.7-5.3 [facility] Comment on above: Performed By: #### C DP, MELVIN, BMPX, IPF #### [address] [address] Chief Librarian Music Department: Francisco J Fonseca MD Sodium [Moles/Vol] 133 mmol/L Low 135-144 [facility] Comment on above: Performed By: #### C DP, MELVIN, BMPX, IPF #### [place] [address] Chief Librarian Music Department: Francisco J Fonseca MD Urea nitrogen [Mass/Vol] 11 mg/dL Normal 8-23 [facility] Comment on above: Performed By: #### C DP, MELVIN, BMPX, IPF #### [place] [address] Chief Librarian Music Department: Francisco J Fonseca MD CBC with Diffon 01-06-2022 Abs. Basophil 0.03 k/uL Normal 0.00-0.20 [facility] Comment on above: Performed By: #### C DP, MELVIN, BMPX, IPF #### [place] [address] Chief Librarian Music Department: Francisco J Fonseca MD Abs.Imm.Granulocyte 0.05 k/uL Normal 0.00-0.30 [facility] Comment on above: Performed By: #### C DP, MELVIN, BMPX, IPF #### [place] [address] Chief Librarian Music Department: Francisco J Fonseca MD Abs.Neutrophil (Seg) 11.21 k/uL High 1.50-8.10 [facility] Comment on above: Performed By: #### C DP, MELVIN, BMPX, IPF #### [facility] [address] [place] [address] 60639 Chief Librarian Music Department: Francisco J Fonseca MD Basophils/100 WBC (Bld) 0 % Normal 0-2 [facility] Comment on above: Performed By: #### C DP, MELVIN, BMPX, IPF #### [address] [address] Chief Librarian Music Department: Francisco J Fonseca MD Eosinophils (Bld) [#/Vol] 0.09 10*3/uL Normal 0.00-0.44 [facility] Comment on above: Performed By: #### C DP, MELVIN, BMPX, IPF #### [address] [address] Chief Librarian Music Department: Francisco J Fonseca MD Eosinophils/100 WBC (Bld) 1 % Normal 1-4 [facility] Comment on above: Performed By: #### C DP, MELVIN, BMPX, IPF #### [address] [address] Chief Librarian Music Department: Francisco J Fonseca MD Erythrocyte distribution width (RBC) [Ratio] 18.4 % High 11.8-14.4 [facility] Comment on above: Performed By: #### C DP, MELVIN, BMPX, IPF #### [facility] [address] [place] [address] Chief Librarian Music Department: Francisco J Fonseca MD Hematocrit (Bld) [Volume fraction] 38.2 % Low 40.7-50.3 [facility] Comment on above: Performed By: #### C DP, MELVIN, BMPX, IPF #### [facility] [address] [place] [address] Chief Librarian Music Department: Francisco J Fonseca MD Hemoglobin (Bld) [Mass/Vol] 13.2 g/dL Normal 13.0-17.0 [facility] Comment on above: Performed By: #### C DP, MELVIN, BMPX, IPF #### [facility] [address] [place] [address]41 Chief Librarian Music Department: Francisco J Fonseca MD Immature granulocytes/100 WBC (Bld) 0 % Normal 0 [facility] Comment on above: Performed By: #### C DP, MELVIN, BMPX, IPF #### [address] [address] Chief Librarian Music Department: Francisco J Fonseca MD Lymphocytes (Bld) [#/Vol] 0.82 10*3/uL Low 1.10-3.70 [facility] Comment on above: Performed By: #### C DP, MELVIN, BMPX, IPF #### [address] [address] Chief Librarian Music Department: Francisco J Fnoseca MD Lymphocytes/100 WBC (Bld) 6 % Low 24-43 [facility] Comment on above: Performed By: #### C DP, MELVIN, BMPX, IPF #### [place] [address] Chief Librarian Music Department: Francisco J Fonseca MD MCH (RBC) [Entitic mass] 26.7 pg Normal 25.2-33.5 [facility] Comment on above: Performed By: #### C DP, MELVIN, BMPX, IPF #### [address] [address] Chief Librarian Music Department: Francisco J Fonseca MD MCHC (RBC) [Mass/Vol] 34.6 g/dL Normal 28.4-34.8 [facility] Comment on above: Performed By: #### C DP, MELVIN, BMPX, IPF #### [facility] [address] [place] [address] Chief Librarian Music Department: Francisco J Fonseca MD MCV (RBC) [Entitic vol] 77.2 fL Low 82.6-102.9 [facility] Comment on above: Performed By: #### C DP, MELVIN, BMPX, IPF #### [facility] [address] [place] [address] Chief Librarian Music Department: Francisco J Fonseca MD Monocytes (Bld) [#/Vol] 1.14 10*3/uL Normal 0.10-1.20 [facility] Comment on above: Performed By: #### C DP, MELVIN, BMPX, IPF #### [address] [address] Chief Librarian Music Department: Francisco J Fonseca MD Monocytes/100 WBC (Bld) 9 % Normal 3-12 [facility] Comment on above: Performed By: #### C DP, MELVIN, BMPX, IPF #### [address] [address] Chief Librarian Music Department: Francisco J Fonseca MD Neutrophil (Seg) 84 % High 36-65 [facility] Comment on above: Performed By: #### C DP, MELVIN, BMPX, IPF #### [address] [address] Chief Librarian Music Department: Francisco J Fonseca MD NRBC Automated 0.0 per 100 WBC Normal 0.0 [facility] Comment on above: Performed By: #### C DP, MELVIN, BMPX, IPF #### [address] [address] Chief Librarian Music Department: Francisco J Fonseca MD Platelet Count See Reflexed IPF Result Normal 138-453 [facility] Comment on above: Performed By: #### C DP, MELVIN, BMPX, IPF #### [facility] [address] [place] [address] Chief Librarian Music Department: Francisco J Fonseca MD RBC (Bld) [#/Vol] 4.95 10*6/uL Normal 4.21-5.77 [facility] Comment on above: Performed By: #### C DP, MELVIN, BMPX, IPF #### [facility] [address] [place] [address] Chief Librarian Music Department: Francisco J Fonseca MD RBC morphology finding Nom (Bld) ANISOCYTOSIS PRESENT Normal [facility] Comment on above: Result Comment: MICR OCYTOSIS PRESENT Performed By: #### C DP, MELVIN, BMPX, IPF #### [facility] [address] [place], [place] [phone] Chief Librarian Music Department: Francisco J Fonseca MD WBC (Bld) [#/Vol] 13.3 10*3/uL High 3.5-11.3 [facility] Comment on above: Performed By: #### C DP, MELVIN, BMPX, IPF #### [facility] [address] [place], [place] [id number] Chief Librarian Music Department: Francisco J Fonseca MD Laboratory - Chemistry and C hemistry - challengeon 01-06-2022 Anion gap [Moles/Vol] 11 mmol/L 9 - 17 mmol/L Where Calcium [Mass/Vol] 7.7 mg/dL Low 8.6 - 10. 4 mg/dL Where Chloride [Moles/Vol] 99 mmol/L 98 - 10 7 mmol/L Where CO2 [Moles/Vol] 23 mmol/L 20 - 31 mmol/L Where Creatinine [Mass/Vol] 0.5 mg/dL Low 0.70 - 1.20 mg/dL Where GFR/1.73 sq M.predicted MDRD (S/P/Bld) [Vol rate/Area] [facility] [facility] Comment on above: Average GFR for 70 o r more years old: 75 mL/min/1.73sq m Chronic Kidney Disease: <60 mL/min/1.73sq m Kidney failure: <15 mL/min/1.73sq m eGFR calculated using average adult body mass. Additional eGFR calculator available at: http://www.netprice.com.com/multiple_crcl_2012.htm Glucose [Mass/Vol] 149 mg/dL High 70 - 99 mg/dL Where Phosphate [Mass/Vol] 2.5 mg/dL 2.5 - 4 .5 mg/dL Where Potassium [Moles/Vol] 3.6 mmol/L Low 3.7 - 5.3 mmol/L [facility] Sodium [Moles/Vol] 133 mmol/L Low 135 - 144 mmol/L [facility] Urea nitrogen (BldV) [Mass/Vol] 11 mg/dL 8 - 23 mg/dL [facility] Laboratory - Hematology and Cell countson 01-06-2022 Basophils (Bld) [#/Vol] 0.03 10*3/uL [facility] Basophils/100 WBC (Bld) 0 % 0 - 2 % [facility] Eosinophils/100 WBC (Bld) 1 % 1 - 4 % [facility] Hematocrit (Bld) [Volume fraction] 38.2 % Low 40.7 - 50.3 % [facility] Hemoglobin (Bld) [Mass/Vol] 13.2 g/dL 13.0 - 17.0 g/dL [facility] Immature granulocytes/100 WBC (Bld) 0 % 0 [facility] Lymphocytes/100 WBC (Bld) 6 % Low 24 - 43 % [facility] MCH (RBC) [Entitic mass] 26.7 pg 25.2 - 33.5 pg [facility] MCHC (RBC) [Mass/Vol] 34.6 g/dL 28.4 - 34.8 g/dL [facility] MCV (RBC) [Entitic vol] 77.2 fL Low 82.6 - 102.9 fL [facility] Monocytes/100 WBC (Bld) 9 % 3 - 12 % [facility] Platelet distribution width (Bld) [Ratio] 18.4 % High 11.8 - 14.4 % [facility] Platelets (Bld) [#/Vol] See Reflexed IPF Result [facility] RBC (Bld) [#/Vol] 4.95 10*6/uL 4.21 - 5.77 m/uL [facility] RBC (Bld) [#/Vol] ANISOCYTOSIS PRESENT [facility] Comment on above: MICROCYTOSIS PRESENT Segmented neutrophils/100 WBC (Bld) 84 % High 36 - 65 % [facility] WBC (Bld) [#/Vol] 13.3 10*3/uL High [facility] No Panel Informationon 01-06 Platelet, Fluorescence 252 [facility] Platelet, Immature Fraction 10.1 % 1.1 - 10.3 % [facility] Absolute Eos # 0.09 [facility] Absolute Immature Granulocyte 0.05 [facility] Absolute Lymph # 0.82 Low [facility] Absolute Maui # 1.14 [facility] Interpretation and review of laboratory results Abnormal [facility] NRBC Automated 0.0 0.0 per 100 WBC [facility] Segs Absolute 11.21 High [facility] GFR >60 >60 mL/min [facility] GFR Non- >60 >60 mL/min [facility] Interpretation and review of laboratory results Abnormal [facility] PLT, Immature Fract.on 01-06 Platelet, Fluoresc. 252 k/uL Normal 138-453 [facility] Comment on above: Performed By: #### C DP, MELVIN, BMPX, IPF #### [facility] [address] [place] [address] [phone] Chief Librarian Music Department: Francisco J Fonseca MD PLT, Immature Fract. 10.1 % Normal 1.1-10.3 [facility] Comment on above: Performed By: #### C DP, MELVIN, BMPX, IPF #### [facility] [address] [place] [address] [phone] Chief Librarian Music Department: Francisco J Fonseca MD Phosphorus, Inorg.on 022 Phosphorus, Inorg. 2.5 mg/dL Normal 2.5-4.5 [facility] Comment on above: Performed By: #### C DP, MELVIN, BMPX, IPF #### [employer] [address] [place] [address] Chief Librarian Music Department: Francisco J Fonseca MD Basic Metab w/rfx MGon 01-05 Potassium [Moles/Vol] 3.4 mmol/L Low 3.7-5.3 [facility] Comment on above: Performed By: #### C DP, MELVIN, BMPX, IPF #### [facility] [address] [place] [address] Chief Librarian Music Department: Francisco J Fonseca MD Urea nitrogen [Mass/Vol] 14 mg/dL Normal 8-23 [facility] Comment on above: Performed By: #### C DP, MELVIN, BMPX, IPF #### [facility] [address] [place] [address] Chief Librarian Music Department: Francisco J Fonseca MD Anion gap [Moles/Vol] 12 mmol/L Normal 9-17 [facility] Comment on above: Performed By: #### C DP, MELVIN, BMPX, IPF #### [facility] [address] [place] [address] Chief Librarian Music Department: Francisco J Fonseca MD Calcium [Mass/Vol] 8.1 mg/dL Low 8.6-10.4 [facility] Comment on above: Performed By: #### C DP, MELVIN, BMPX, IPF #### [facility] [address] [place] [address] Chief Librarian Music Department: Francisco J Fonseca MD Chloride [Moles/Vol] 98 mmol/L Normal 98-107 [facility] Comment on above: Performed By: #### C DP, MELVIN, BMPX, IPF #### [facility] [address] [place] [address] Chief Librarian Music Department: Francisco J Fonseca MD CO2 [Moles/Vol] 24 mmol/L Normal 20-31 [facility] Comment on above: Performed By: #### C DP, MELVIN, BMPX, IPF #### [facility] [address] [place] [address] Chief Librarian Music Department: Francisco J Fonseca MD Creatinine [Mass/Vol] 0.54 mg/dL Low 0.70-1.20 [facility] Comment on above: Performed By: #### C DP, MELVIN, BMPX, IPF #### [facility] [place] [address] Chief Librarian Music Department: Francisco J Fonseca MD Glucose [Mass/Vol] 122 mg/dL High 70-99 [facility] Comment on above: Performed By: #### C DP, MELVIN, BMPX, IPF #### [facility] [address] [place] [address] Chief Librarian Music Department: Francisco J Fonseca MD Sodium [Moles/Vol] 134 mmol/L Low 135-144 [facility] Comment on above: Performed By: #### C DP, MELVIN, BMPX, IPF #### [facility] [address] [place] [address] Chief Librarian Music Department: Francisco J Fonseca MD (cont.) [facility] Comment on above: Result Comment: Aver age GFR for 70 or more years old: 75 mL/min/1.73sq m Chronic Kidney Disease: <60 mL/min/1.73sq m Kidney failure: <15 mL/min/1.73sq m eGFR calculated using average adult body mass. Additional eGFR calculator available at: http://www.[employer]/multiple_crcl_2012.htm Performed By: #### C DP, MELVIN, BMPX, IPF #### [facility] [address] [place] [address] Chief Librarian Music Department: Francisco J Fonseca MD Anion gap [Moles/Vol] 11 mmol/L Normal 9-17 [facility] Comment on above: Performed By: #### C DP, MELVIN, BMPX, IPF #### [address] [address] Chief Librarian Music Department: Francisco J Fonseca MD Calcium [Mass/Vol] 9.1 mg/dL Normal 8.6-10.4 [facility] Comment on above: Performed By: #### C DP, MELVIN, BMPX, IPF #### [facility] [address] [place] [address] Chief Librarian Music Department: Francisco J Fonseca MD Chloride [Moles/Vol] 99 mmol/L Normal 98-107 [facility] Comment on above: Performed By: #### C DP, MELVIN, BMPX, IPF #### [facility] [address] [place] [address] Chief Librarian Music Department: Francisco J Fonseca MD CO2 [Moles/Vol] 25 mmol/L Normal 20-31 [facility] Comment on above: Performed By: #### C DP, MELVIN, BMPX, IPF #### [address] [address] Chief Librarian Music Department: Francisco J Fonseca MD Creatinine [Mass/Vol] 0.57 mg/dL Low 0.70-1.20 [facility] Comment on above: Performed By: #### C DP, MELVIN, BMPX, IPF #### [address] [address] Chief Librarian Music Department: Francisco J Fonseca MD GFR, Amer >60 Normal >60 [facility] Comment on above: Performed By: #### C DP, MELVIN, BMPX, IPF #### [address] [address] Chief Librarian Music Department: Francisco J Fonseca MD GFR,non Amer >60 Normal >60 [facility] Comment on above: Performed By: #### C DP, MELVIN, BMPX, IPF #### [facility] [address] [place] [address] Chief Librarian Music Department: Francisco J Fonseca MD Glucose [Mass/Vol] 129 mg/dL High 70-99 [facility] Comment on above: Performed By: #### C DP, MELVIN, BMPX, IPF #### [facility] [address] [place] [address] Chief Librarian Music Department: Francisco J Fonseca MD Potassium [Moles/Vol] 3.5 mmol/L Low 3.7-5.3 [facility] Comment on above: Performed By: #### C DP, MELVIN, BMPX, IPF #### [address] [address] Chief Librarian Music Department: Francisco J Fonseca MD Sodium [Moles/Vol] 135 mmol/L Normal 135-144 [facility] Comment on above: Performed By: #### C DP, MELVIN, BMPX, IPF #### [address] [address] Chief Librarian Music Department: Francisco J Fonseca MD Urea nitrogen [Mass/Vol] 15 mg/dL Normal 8-23 [facility] Comment on above: Performed By: #### C DP, MELVIN, BMPX, IPF #### [address] [address] Chief Librarian Music Department: Francisco J Fonseca MD (cont.) [facility] Comment on above: Result Comment: Aver age GFR for 70 or more years old: 75 mL/min/1.73sq m Chronic Kidney Disease: <60 mL/min/1.73sq m Kidney failure: <15 mL/min/1.73sq m eGFR calculated using average adult body mass. Additional eGFR calculator available at: http://www.netprice.com.[employer]/multiple_crcl_2012.htm Performed By: #### C DP, MELVIN, BMPX, IPF #### [address] [address] Chief Librarian Music Department: Francisco J Fonseca MD Anion gap [Moles/Vol] 15 mmol/L Normal 9-17 [facility] Comment on above: Performed By: #### C DP, MELVIN, BMPX, IPF #### [address] [address] Chief Librarian Music Department: Francisco J Fonseca MD Calcium [Mass/Vol] 8.2 mg/dL Low 8.6-10.4 [facility] Comment on above: Performed By: #### C DP, MELVIN, BMPX, IPF #### [facility] [address] [place] [address] Chief Librarian Music Department: Francisco J Fonseca MD Chloride [Moles/Vol] 98 mmol/L Normal 98-107 [facility] Comment on above: Performed By: #### C DP, MELVIN, BMPX, IPF #### [facility] [address] [place] [address] Chief Librarian Music Department: Francisco J Fonseca MD CO2 [Moles/Vol] 23 mmol/L Normal 20-31 [facility] Comment on above: Performed By: #### C DP, MELVIN, BMPX, IPF #### [facility] [address] [place] [address] Chief Librarian Music Department: Francisco J Fonseca MD Creatinine [Mass/Vol] 0.66 mg/dL Low 0.70-1.20 [facility] Comment on above: Performed By: #### C DP, MELVIN, BMPX, IPF #### [facility] [address] [place] [address] Chief Librarian Music Department: Francisco J Fonseca MD GFR, Amer >60 Normal >60 [facility] Comment on above: Performed By: #### C DP, MELVIN, BMPX, IPF #### [facility] [address] [place] [address] Chief Librarian Music Department: Francisco J Fonseca MD GFR,non Amer >60 Normal >60 [facility] Comment on above: Performed By: #### C DP, MELVIN, BMPX, IPF #### [facility] [address] [place] [address] Chief Librarian Music Department: Francisco J Fonseca MD Glucose [Mass/Vol] 90 mg/dL Normal 70-99 [facility] Comment on above: Performed By: #### C DP, MELVIN, BMPX, IPF #### [facility] [address] [place] [address] Chief Librarian Music Department: Francisco J Fonseca MD Potassium [Moles/Vol] 3.7 mmol/L Normal 3.7-5.3 [facility] Comment on above: Performed By: #### C DP, MELVIN, BMPX, IPF #### [facility] [address] [place] [address] Chief Librarian Music Department: Francisco J Fonseca MD Sodium [Moles/Vol] 136 mmol/L Normal 135-144 [facility] Comment on above: Performed By: #### C DP, MELVIN, BMPX, IPF #### [address] [address] Chief Librarian Music Department: Francisco J Fonseca MD Urea nitrogen [Mass/Vol] 20 mg/dL Normal 8-23 [facility] Comment on above: Performed By: #### C DP, MELVIN, BMPX, IPF #### [place] [address] Chief Librarian Music Department: Francisco J Fonseca MD CBC with Diffon 01-05-2022 Abs. Basophil 0.04 k/uL Normal 0.00-0.20 [facility] Comment on above: Performed By: #### C DP, MELVIN, BMPX, IPF #### [facility] [address] [place] [address] Chief Librarian Music Department: Francisco J Fonseca MD Abs.Imm.Granulocyte 0.08 k/uL Normal 0.00-0.30 [facility] Comment on above: Performed By: #### C DP, MELVIN, BMPX, IPF #### [facility] [facility] [address] [place] [address] Chief Librarian Music Department: Francisco J Fonseca MD Abs.Neutrophil (Seg) 14.26 k/uL High 1.50-8.10 [facility] Comment on above: Performed By: #### C DP, MELVIN, BMPX, IPF #### [facility] [address] [place] [address] Chief Librarian Music Department: Francisco J Fonseca MD Basophils/100 WBC (Bld) 0 % Normal 0-2 [facility] Comment on above: Performed By: #### C DP, MELVIN, BMPX, IPF #### [address] [address] Chief Librarian Music Department: Francisco J Fonseca MD Eosinophils (Bld) [#/Vol] 0.11 10*3/uL Normal 0.00-0.44 [facility] Comment on above: Performed By: #### C DP, MELVIN, BMPX, IPF #### [place] [address] Chief Librarian Music Department: Francisco J Fonseca MD Eosinophils/100 WBC (Bld) 1 % Normal 1-4 [facility] Comment on above: Performed By: #### C DP, MELVIN, BMPX, IPF #### [place] [address] Chief Librarian Music Department: Francisco J Fonseca MD Immature granulocytes/100 WBC (Bld) 1 % High 0 [facility] Comment on above: Performed By: #### C DP, MELVIN, BMPX, IPF #### [facility] [address] [place] [address] Chief Librarian Music Department: Francisco J Fonseca MD Lymphocytes (Bld) [#/Vol] 0.96 10*3/uL Low 1.10-3.70 [facility] Comment on above: Performed By: #### C DP, MELVIN, BMPX, IPF #### [facility] [address] [place] [address] Chief Librarian Music Department: Francisco J Fonseca MD Lymphocytes/100 WBC (Bld) 6 % Low 24-43 [facility] Comment on above: Performed By: #### C DP, MELVIN, BMPX, IPF #### [facility] [address] [place] [address] Chief Librarian Music Department: Francisco J Fonseca MD Monocytes (Bld) [#/Vol] 0.97 10*3/uL Normal 0.10-1.20 [facility] Comment on above: Performed By: #### C DP, MELVIN, BMPX, IPF #### [address] [address] Chief Librarian Music Department: Francisco J Fonseca MD Monocytes/100 WBC (Bld) 6 % Normal 3-12 [facility] Comment on above: Performed By: #### C DP, MELVIN, BMPX, IPF #### [address] [address] Chief Librarian Music Department: Francisco J Fonseca MD Neutrophil (Seg) 87 % High 36-65 [facility] Comment on above: Performed By: #### C DP, MELVIN, BMPX, IPF #### [address] [address] Chief Librarian Music Department: Francisco J Fonseca MD Erythrocyte distribution width (RBC) [Ratio] 18.6 % High 11.8-14.4 [facility] Comment on above: Performed By: #### C DP, MELVIN, BMPX, IPF #### [address] [address] Chief Librarian Music Department: Francisco J Fonseca MD Hematocrit (Bld) [Volume fraction] 38.9 % Low 40.7-50.3 [facility] Comment on above: Performed By: #### C DP, MELVIN, BMPX, IPF #### [facility] [address] [place] [address] Chief Librarian Music Department: Francisco J Fonseca MD Hemoglobin (Bld) [Mass/Vol] 13.5 g/dL Normal 13.0-17.0 [facility] Comment on above: Performed By: #### C DP, MELVIN, BMPX, IPF #### [facility] [address] [place] [address]29 Chief Librarian Music Department: Francisco J Fonseca MD MCH (RBC) [Entitic mass] 26.8 pg Normal 25.2-33.5 [facility] Comment on above: Performed By: #### C DP, MEVLIN, BMPX, IPF #### [address] [address] Chief Librarian Music Department: Francisco J Fonseca MD MCHC (RBC) [Mass/Vol] 34.7 g/dL Normal 28.4-34.8 [facility] Comment on above: Performed By: #### C DP, MELVIN, BMPX, IPF #### [address] [address] Chief Librarian Music Department: Francisco J Fonseca MD MCV (RBC) [Entitic vol] 77.3 fL Low 82.6-102.9 [facility] Comment on above: Performed By: #### C DP, MELVIN, BMPX, IPF #### [address] [address] Chief Librarian Music Department: Francisco J Fonseca MD NRBC Automated 0.0 per 100 WBC Normal 0.0 [facility] Comment on above: Performed By: #### C DP, MELVIN, BMPX, IPF #### [address] [address] Chief Librarian Music Department: Francisco J Fonseca MD Platelet Count See Reflexed IPF Result Normal 138-453 [facility] Comment on above: Performed By: #### C DP, MELVIN, BMPX, IPF #### [address] [address] Chief Librarian Music Department: Francisco J Fonseca MD RBC (Bld) [#/Vol] 5.03 10*6/uL Normal 4.21-5.77 [facility] Comment on above: Performed By: #### C DP, MELVIN, BMPX, IPF #### [address] [address] Chief Librarian Music Department: Francisco J Fonseca MD RBC morphology finding Nom (Bld) ANISOCYTOSIS PRESENT Normal [facility] Comment on above: Result Comment: MICR OCYTOSIS PRESENT Performed By: #### C DP, MELVIN, BMPX, IPF #### [facility] [address] [place], [place] [id number] Chief Librarian Music Department: Francisco J Fonseca MD WBC (Bld) [#/Vol] 16.4 10*3/uL High 3.5-11.3 [facility] Comment on above: Performed By: #### C DP, MELVIN, BMPX, IPF #### [facility] [address] [place], [place] [phone] Chief Librarian Music Department: Francisco J Fonseca MD [place] UGIon 01-05-2022 [place] UGI EXAMINATION: SINGLE CONTRAST UPPER GI SERIES 01/05/2022 HISTORY: ORDERING SYSTEM PROVIDED HISTORY: repair perf ulcer TECHNOLOGIST PROVIDED HISTORY: repair perf ulcer COMPARISON: None. TECHNIQUE: Multiple single contrast images of the esophagus, gastroesophageal junction and stomach were obtained following the oral administration of water soluble contrast. FLUOROSCOPY DOSE AND TYPE OR TIME AND EXPOSURES: DAP 16.184Bhpb9 FINDINGS: Contrast was administered through the indwelling [...] Howard Aldridge MD 01/05/22 Final result Normal [facility] - Chemistry and C hemistry - challengeon 01-05-2022 Magnesium [Mass/Vol] 1.4 mg/dL Low 1.6 - 2 .6 mg/dL [facility] GFR/1.73 sq M.predicted MDRD (S/P/Bld) [Vol rate/Area] [facility] Comment on above: Average GFR for 70 o r more years old: 75 mL/min/1.73sq m Chronic Kidney Disease: <60 mL/min/1.73sq m Kidney failure: <15 mL/min/1.73sq m eGFR calculated using average adult body mass. Additional eGFR calculator available at: http://www.[employer]/multiple_crcl_2012.htm Potassium [Moles/Vol] 3.4 mmol/L Low 3.7 - 5.3 mmol/L [facility] Urea nitrogen (BldV) [Mass/Vol] 14 mg/dL 8 - 23 mg/dL [facility] Phosphate [Mass/Vol] 2.4 mg/dL Low 2.5 - 4 .5 mg/dL [facility] Magnesium [Mass/Vol] 1.5 mg/dL Low 1.6 - 2 .6 mg/dL [facility] Anion gap [Moles/Vol] 11 mmol/L 9 - 17 mmol/L [facility] Calcium [Mass/Vol] 9.1 mg/dL 8.6 - 10. 4 mg/dL [facility] Chloride [Moles/Vol] 99 mmol/L 98 - 10 7 mmol/L [facility] CO2 [Moles/Vol] 25 mmol/L 20 - 31 mmol/L [facility] Creatinine [Mass/Vol] 0.57 mg/dL Low 0.70 - 1.20 mg/dL [facility] GFR/1.73 sq M.predicted MDRD (S/P/Bld) [Vol rate/Area] [facility] Comment on above: Average GFR for 70 o r more years old: 75 mL/min/1.73sq m Chronic Kidney Disease: <60 mL/min/1.73sq m Kidney failure: <15 mL/min/1.73sq m eGFR calculated using average adult body mass. Additional eGFR calculator available at: http://www.[employer]/multiple_crcl_2012.htm Glucose [Mass/Vol] 129 mg/dL High 70 - 99 mg/dL [facility] Phosphate [Mass/Vol] 2.4 mg/dL Low 2.5 - 4 .5 mg/dL [facility] Potassium [Moles/Vol] 3.5 mmol/L Low 3.7 - 5.3 mmol/L [facility] Sodium [Moles/Vol] 135 mmol/L 135 - 144 mmol/L [facility] Urea nitrogen (BldV) [Mass/Vol] 15 mg/dL 8 - 23 mg/dL [facility] Laboratory - Hematology and Cell countson 01-05-2022 Basophils (Bld) [#/Vol] 0.04 10*3/uL [facility] Basophils/100 WBC (Bld) 0 % 0 - 2 % [facility] Eosinophils/100 WBC (Bld) 1 % 1 - 4 % [facility] Hematocrit (Bld) [Volume fraction] 38.9 % Low 40.7 - 50.3 % [facility] Hemoglobin (Bld) [Mass/Vol] 13.5 g/dL 13.0 - 17.0 g/dL [facility] Immature granulocytes/100 WBC (Bld) 1 % High 0 [facility] Lymphocytes/100 WBC (Bld) 6 % Low 24 - 43 % [facility] MCH (RBC) [Entitic mass] 26.8 pg 25.2 - 33.5 pg [facility] MCHC (RBC) [Mass/Vol] 34.7 g/dL 28.4 - 34.8 g/dL [facility] MCV (RBC) [Entitic vol] 77.3 fL Low 82.6 - 102.9 fL [facility] Monocytes/100 WBC (Bld) 6 % 3 - 12 % [facility] Platelet distribution width (Bld) [Ratio] 18.6 % High 11.8 - 14.4 % [facility] Platelets (Bld) [#/Vol] See Reflexed IPF Result [facility] RBC (Bld) [#/Vol] 5.03 10*6/uL 4.21 - 5.77 m/uL [facility] RBC (Bld) [#/Vol] ANISOCYTOSIS PRESENT [facility] Comment on above: MICROCYTOSIS PRESENT Segmented neutrophils/100 WBC (Bld) 87 % High 36 - 65 % [facility] WBC (Bld) [#/Vol] 16.4 10*3/uL High [facility] Magnesiumon 01-05-2022 Magnesium [Mass/Vol] 1.4 mg/dL Low 1.6-2.6 [facility] Comment on above: Performed By: #### C DP, MELVIN, BMPX, IPF #### [facility] [address] [place], [place] [id number] Chief Librarian Music Department: Francisco J Fonseca MD Magnesium [Mass/Vol] 1.5 mg/dL Low 1.6-2.6 [facility] Comment on above: Performed By: #### C DP, MELVIN, BMPX, IPF #### [facility] [address] [place], [place] [id number] Chief Librarian Music Department: Francisco J Fonseca MD No Panel Informationon 01-05 1. No evidence for contrast leakage from the stomach or duodenum following repair of perforated ulcer. 2. Gastroesophageal reflux. [facility] EXAMINATION: SINGLE CONTRAST UPPER GI SERIES 01/05/2022 HISTORY: ORDERING SYSTEM PROVIDED HISTORY: repair perf ulcer TECHNOLOGIST PROVIDED HISTORY: repair perf ulcer COMPARISON: None. TECHNIQUE: Multiple single contrast images of the esophagus, gastroesophageal junction and stomach were obtained following the oral administration of water soluble contrast. FLUOROSCOPY DOSE AND TYPE OR TIME AND EXPOSURES: DAP 16.035Eoaj4 FINDINGS: Contrast was administered through the indwelling NG tube. No extravasation of contrast from the stomach. There is normal filling of stomach and proximal small bowel loops. There was some reflux into the biliary tree. Gastroesophageal reflux is noted. [facility] Howard Aldridge MD - 01/05/2022 EXAMINATION: SINGLE CONTRAST UPPER GI SERIES 01/05/2022 HISTORY: ORDERING SYSTEM PROVIDED HISTORY: repair perf ulcer TECHNOLOGIST PROVIDED HISTORY: repair perf ulcer COMPARISON: None. TECHNIQUE: Multiple single contrast images of the esophagus, gastroesophageal junction and stomach were obtained following the oral administration of water soluble contrast. FLUOROSCOPY DOSE AND TYPE OR TIME AND EXPOSURES: DAP 16.353Imlm4 FINDINGS: Contrast was administered through the indwelling NG tube. No extravasation of contrast from the stomach. There is normal filling of stomach and proximal small bowel loops. There was some reflux into the biliary tree. Gastroesophageal reflux is noted. IMPRESSION: 1. No evidence for contrast leakage from the stomach or duodenum following repair of perforated ulcer. 2. Gastroesophageal reflux. [facility] Work Phone: Radiology Study observation (narrative) [facility] Work Phone: Interpretation and review of laboratory results Abnormal [facility] GFR >60 >60 mL/min [facility] GFR Non- >60 >60 mL/min [facility] Interpretation and review of laboratory results Abnormal [facility] Interpretation and review [facility] laboratory results Abnormal [facility] Interpretation and review of laboratory results Abnormal [facility] Platelet, Fluorescence 250 [facility] Platelet, Immature Fraction 10.5 % High 1.1 - 10.3 % [facility] Absolute Eos # 0.11 [facility] Absolute Immature Granulocyte 0.08 [facility] Absolute Lymph # 0.96 Low [facility] Absolute Maui # 0.97 [facility] Interpretation and review of laboratory results Abnormal [facility] NRBC Automated 0.0 0.0 per 100 WBC [facility] Segs Absolute 14.26 High [facility] Interpretation and review of laboratory results Abnormal [facility] GFR >60 >60 mL/min [facility] GFR Non- >60 >60 mL/min [facility] Interpretation and review of laboratory results Abnormal [facility] No Panel InformationOrdered By: Howard Aldridge on 01-05-2022 [facility] Work Phone: PLT, Immature Fract.on 01-05 Platelet, Fluoresc. 250 k/uL Normal 138-453 [facility] Comment on above: Performed By: #### C DP, MELVIN, BMPX, IPF #### [facility] [address] [id number] Chief Librarian Music Department: Francisco J Fonseca MD PLT, Immature Fract. 10.5 % High 1.1-10.3 [facility] Comment on above: Performed By: #### C DP, MELVIN, BMPX, IPF #### [facility] [address] [place] [address] Chief Librarian Music Department: Francisco J Fonseca MD Phosphorus, Inorg.on 022 Phosphorus, Inorg. 2.4 mg/dL Low 2.5-4.5 [facility] Comment on above: Performed By: #### C DP, MELVIN, BMPX, IPF #### [facility] [address] [place] [address] Chief Librarian Music Department: Francisco J Fonseca MD Phosphorus, Inorg. 1.9 mg/dL Low 2.5-4.5 [facility] Comment on above: Performed By: #### C DP, MELVIN, BMPX, IPF #### [facility] [address] [place] [address] Chief Librarian Music Department: Francisco J Fonseca MD Basic Metab w/rfx MGon 01-04 Potassium [Moles/Vol] 3.4 mmol/L Low 3.7-5.3 [facility] Comment on above: Performed By: #### C DP, MELVIN, BMPX, IPF #### [facility] [address] [place] [address] Chief Librarian Music Department: Francisco J Fonseca MD (cont.) [facility] Comment on above: Result Comment: Aver age GFR for 70 or more years old: 75 mL/min/1.73sq m Chronic Kidney Disease: <60 mL/min/1.73sq m Kidney failure: <15 mL/min/1.73sq m eGFR calculated using average adult body mass. Additional eGFR calculator available at: http://www.netprice.com.[employer]/multiple_crcl_2012.htm Performed By: #### C DP, MELVIN, BMPX, IPF #### [facility] [address] [place] [address] Chief Librarian Music Department: Francisco J Fonseca MD Anion gap [Moles/Vol] 12 mmol/L Normal 9-17 [facility] Comment on above: Performed By: #### C DP, MELVIN, BMPX, IPF #### [facility] [address] [place] [address] Chief Librarian Music Department: Francisco J Fonseca MD Calcium [Mass/Vol] 8.1 mg/dL Low 8.6-10.4 [facility] Comment on above: Performed By: #### C DP, MELVIN, BMPX, IPF #### [facility] [address] [place] [address] Chief Librarian Music Department: Francisco J Fonseca MD Chloride [Moles/Vol] 99 mmol/L Normal 98-107 [facility] Comment on above: Performed By: #### C DP, MELVIN, BMPX, IPF #### [facility] [address] [place] [address] Chief Librarian Music Department: Francisco J Fonseca MD CO2 [Moles/Vol] 23 mmol/L Normal 20-31 [facility] Comment on above: Performed By: #### C DP, MELVIN, BMPX, IPF #### [facility] [address] [place] [address] Chief Librarian Music Department: Francisco J Fonseca MD Creatinine [Mass/Vol] 0.61 mg/dL Low 0.70-1.20 [facility] Comment on above: Performed By: #### C DP, MELVIN, BMPX, IPF #### [facility] [address] [place] [address] Chief Librarian Music Department: Francisco J Fonseca MD GFR, Amer >60 Normal >60 [facility] Comment on above: Performed By: #### C DP, MELVIN, BMPX, IPF #### [facility] [address] [place] [address] Chief Librarian Music Department: Francisco J Fonseca MD GFR,non Amer >60 Normal >60 [facility] Comment on above: Performed By: #### C DP, MELVIN, BMPX, IPF #### [address] [address] Chief Librarian Music Department: Francisco J Fonseca MD Glucose [Mass/Vol] 125 mg/dL High 70-99 [facility] Comment on above: Performed By: #### C DP, MELVIN, BMPX, IPF #### [address] [address] Chief Librarian Music Department: Francisco J Fonseca MD Sodium [Moles/Vol] 134 mmol/L Low 135-144 [facility] Comment on above: Performed By: #### C DP, MELVIN, BMPX, IPF #### [address] [address] Chief Librarian Music Department: Francisco J Fonseca MD Urea nitrogen [Mass/Vol] 19 mg/dL Normal 8-23 [facility] Comment on above: Performed By: #### C DP, MELVIN, BMPX, IPF #### [address] [address] Chief Librarian Music Department: Francisco J Fonseca MD (cont.) [facility] Comment on above: Result Comment: Aver age GFR for 70 or more years old: 75 mL/min/1.73sq m Chronic Kidney Disease: <60 mL/min/1.73sq m Kidney failure: <15 mL/min/1.73sq m eGFR calculated using average adult body mass. Additional eGFR calculator available at: http://www.netprice.com.com/multiple_crcl_2012.htm Performed By: #### C DP, MELVIN, BMPX, IPF #### [address] [address] Chief Librarian Music Department: Francisco J Fonseca MD Anion gap [Moles/Vol] 13 mmol/L Normal 9-17 [facility] Comment on above: Performed By: #### C DP, MELVIN, BMPX, IPF #### [facility] [address] [place] [address] Chief Librarian Music Department: Francisco J Fonseca MD Calcium [Mass/Vol] 8.4 mg/dL Low 8.6-10.4 [facility] Comment on above: Performed By: #### C DP, MELVIN, BMPX, IPF #### [facility] [address] [place] [address] Chief Librarian Music Department: Francisco J Fonseca MD Chloride [Moles/Vol] 101 mmol/L Normal 98-107 [facility] Comment on above: Performed By: #### C DP, MELVIN, BMPX, IPF #### [facility] [address] [place] [address] Chief Librarian Music Department: Francisco J Fonseca MD CO2 [Moles/Vol] 23 mmol/L Normal 20-31 [facility] Comment on above: Performed By: #### C DP, MELVIN, BMPX, IPF #### [facility] [address] [place] [address] Chief Librarian Music Department: Francisco J Fonseca MD Creatinine [Mass/Vol] 0.73 mg/dL Normal 0.70-1.20 [facility] Comment on above: Performed By: #### C DP, MELVIN, BMPX, IPF #### [facility] [address] [place] [address] Chief Librarian Music Department: Francisco J Fonseca MD GFR, Amer >60 Normal >60 [facility] Comment on above: Performed By: #### C DP, MELVIN, BMPX, IPF #### [facility] [address] [place] [address] Chief Librarian Music Department: Francisco J Fonseca MD GFR,non Amer >60 Normal >60 [facility] Comment on above: Performed By: #### C DP, MELVIN, BMPX, IPF #### [facility] [address] [place] [address] Chief Librarian Music Department: Francisco J Fonseca MD Glucose [Mass/Vol] 124 mg/dL High 70-99 [facility] Comment on above: Performed By: #### C DP, MELVIN, BMPX, IPF #### [facility] [address] [place] [address] Chief Librarian Music Department: Francisco J Fonseca MD Potassium [Moles/Vol] 3.9 mmol/L Normal 3.7-5.3 [facility] Comment on above: Performed By: #### C DP, MELVIN, BMPX, IPF #### [facility] [address] [place] [address] Chief Librarian Music Department: Francisco J Fonseca MD Sodium [Moles/Vol] 137 mmol/L Normal 135-144 [facility] Comment on above: Performed By: #### C DP, MELVIN, BMPX, IPF #### [facility] [address] [place] [address] Chief Librarian Music Department: Francisco J Fonseca MD Urea nitrogen [Mass/Vol] 24 mg/dL High 8-23 [facility] Comment on above: Performed By: #### C DP, MELVIN, BMPX, IPF #### [facility] [address] [place] [address] Chief Librarian Music Department: Francisco J Fonseca MD (cont.) Normal [facility] Comment on above: Result Comment: Aver age GFR for 70 or more years old: 75 mL/min/1.73sq m Chronic Kidney Disease: <60 mL/min/1.73sq m Kidney failure: <15 mL/min/1.73sq m eGFR calculated using average adult body mass. Additional eGFR calculator available at: http://www.netprice.com.[employer]/multiple_crcl_2012.htm Performed By: #### B MPX, MELVIN #### [facility] [address] [place] [address] Chief Librarian Music Department: Francisco J Fonseca MD Anion gap [Moles/Vol] 12 mmol/L Normal 9-17 [facility] Comment on above: Performed By: #### B MPX, MELVIN #### [facility] [address] [place] [address] Chief Librarian Music Department: Francisco J Fonseca MD Calcium [Mass/Vol] 8.5 mg/dL Low 8.6-10.4 [facility] Comment on above: Performed By: #### B MPX, MELVIN #### [facility] [address] [place] [address] Chief Librarian Music Department: Francisco J Fonseca MD Chloride [Moles/Vol] 101 mmol/L Normal 98-107 [facility] Comment on above: Performed By: #### B MPX, MELVIN #### [facility] [address] [place] [address] Chief Librarian Music Department: Francisco J Fonseca MD CO2 [Moles/Vol] 23 mmol/L Normal 20-31 [facility] Comment on above: Performed By: #### B MPX, MELVIN #### [address] [address] Chief Librarian Music Department: Francisco J Fonseca MD Creatinine [Mass/Vol] 0.82 mg/dL Normal 0.70-1.20 [facility] Comment on above: Performed By: #### B MPX, MELVIN #### [facility] [address] [place] [address] Chief Librarian Music Department: Francisco J Fonseca MD GFR, Amer >60 Normal >60 [facility] Comment on above: Performed By: #### B MPX, MELVIN #### [facility] [address] [place] [address] Chief Librarian Music Department: Francisco J Fonseca MD GFR,non Amer >60 Normal >60 [facility] Comment on above: Performed By: #### B MPX, MELVIN #### [facility] [address] [place] [address] [address] Chief Librarian [employer] Department: Francisco J Fonseca MD Glucose [Mass/Vol] 100 mg/dL High 70-99 [facility] Comment on above: Performed By: #### B MPX, MELVIN #### [facility] [address] [place] [address] Chief Librarian Music Department: Francisco J Fonseca MD Potassium [Moles/Vol] 3.9 mmol/L Normal 3.7-5.3 [facility] Comment on above: Performed By: #### B MPX, MELVIN #### [facility] [address] [place] [address] Chief Librarian Music Department: Francisco J Fonseca MD Sodium [Moles/Vol] 136 mmol/L Normal 135-144 [facility] Comment on above: Performed By: #### B MPX, MELVIN #### [facility] [address] [place] [address] Chief Librarian Music Department: Francisco J Fonseca MD Urea nitrogen [Mass/Vol] 26 mg/dL High 8-23 [facility] Comment on above: Performed By: #### B MPX, MELVIN #### [facility] [address] [place] [address] Chief Librarian Music Department: Francisco J Fonseca MD (cont.) [facility] Comment on above: Result Comment: Aver age GFR for 70 or more years old: 75 mL/min/1.73sq m Chronic Kidney Disease: <60 mL/min/1.73sq m Kidney failure: <15 mL/min/1.73sq m eGFR calculated using average adult body mass. Additional eGFR calculator available at: http://www.netprice.com.com/multiple_crcl_2012.htm Performed By: #### C DP #### [facility] [address] [place] [address] Chief Librarian Music Department: Francisco J Fonseca MD Anion gap [Moles/Vol] 11 mmol/L Normal 9-17 [facility] Comment on above: Performed By: #### C DP #### [facility] [address] [place] [address] Chief Librarian Music Department: Francisco J Fonseca MD Calcium [Mass/Vol] 8.3 mg/dL Low 8.6-10.4 [facility] Comment on above: Performed By: #### C DP #### [facility] [address] [place] [address] Chief Librarian Music Department: Francisco J Fonseca MD Chloride [Moles/Vol] 104 mmol/L Normal 98-107 [facility] Comment on above: Performed By: #### C DP #### [address] [address] Chief Librarian Music Department: Francisco J Fonseca MD CO2 [Moles/Vol] 21 mmol/L Normal 20-31 [facility] Comment on above: Performed By: #### C DP #### [address] [address] Chief Librarian Music Department: Francisco J Fonseca MD Creatinine [Mass/Vol] 0.83 mg/dL Normal 0.70-1.20 [facility] Comment on above: Performed By: #### C DP #### [address] [address] Chief Librarian Music Department: Francisco J Fonseca MD GFR, Amer >60 Normal >60 [facility] Comment on above: Performed By: #### C DP #### [address] [address] Chief Librarian Music Department: Francisco J Fonseca MD GFR,non Amer >60 Normal >60 [facility] Comment on above: Performed By: #### C DP #### [address] [address] Chief Librarian Music Department: Francisco J Fonseca MD Glucose [Mass/Vol] 71 mg/dL Normal 70-99 [facility] Comment on above: Performed By: #### C DP #### [address] [address] Chief Librarian Music Department: Francisco J Fonseca MD Potassium [Moles/Vol] 4.5 mmol/L Normal 3.7-5.3 [facility] Comment on above: Result Comment: SPEC IMEN SLIGHTLY HEMOLYZED, RESULTS MAY BE ADVERSELY AFFECTED. Performed By: #### C DP #### [place] [address] Chief Librarian Music Department: Francisco J Fonseca MD Sodium [Moles/Vol] 136 mmol/L Normal 135-144 [facility] Comment on above: Performed By: #### C DP #### [address] [address] Chief Librarian Music Department: Francisco J Fonseca MD Urea nitrogen [Mass/Vol] 29 mg/dL High 8-23 [facility] Comment on above: Performed By: #### C DP #### [place] [address] Chief Librarian Music Department: Francisco J Fonseca MD CBC with Diffon 01-04-2022 Abs. Basophil 0.04 k/uL Normal 0.00-0.20 [facility] Comment on above: Performed By: #### C DP #### [place] [address] Chief Librarian Music Department: Francisco J Fonseca MD Abs. Eosinophil <0.03 Normal 0.00-0.44 [facility] Comment on above: Performed By: #### C DP #### [address] [address] Chief Librarian Music Department: Francisco J Fonseca MD Abs.Imm.Granulocyte 0.20 k/uL Normal 0.00-0.30 [facility] Comment on above: Performed By: #### C DP #### [address] [address] Chief Librarian Music Department: Francisco J Fonseca MD Abs.Neutrophil (Seg) 18.94 k/uL High 1.50-8.10 [facility] Comment on above: Performed By: #### C DP #### [address] [address] Chief Librarian Music Department: Francisco J Fonseca MD Basophils/100 WBC (Bld) 0 % Normal 0-2 [facility] Comment on above: Performed By: #### C DP #### [address] [address] Chief Librarian Music Department: Francisco J Fonseca MD Eosinophils/100 WBC (Bld) 0 % Low 1-4 [facility] Comment on above: Performed By: #### C DP #### [address] [address] Chief Librarian Music Department: Francisco J Fonseca MD Erythrocyte distribution width (RBC) [Ratio] 19.0 % High 11.8-14.4 [facility] Comment on above: Performed By: #### C DP #### [address] [address] Chief Librarian Music Department: Francisco J Fonseca MD Hematocrit (Bld) [Volume fraction] 35.1 % Low 40.7-50.3 [facility] Comment on above: Performed By: #### C DP #### [address] [address] Chief Librarian Music Department: Francisco J Fonseca MD Hemoglobin (Bld) [Mass/Vol] 12.0 g/dL Low 13.0-17.0 [facility] Comment on above: Performed By: #### C DP #### [address] [address] Chief Librarian Music Department: Francisco J Fonseca MD Immature granulocytes/100 WBC (Bld) 1 % High 0 [facility] Comment on above: Performed By: #### C DP #### [place] [address] Chief Librarian Music Department: Francisco J Fonseca MD Lymphocytes (Bld) [#/Vol] 0.89 10*3/uL Low 1.10-3.70 [facility] Comment on above: Performed By: #### C DP #### [place] [address] Chief Librarian Music Department: Francisco J Fonseca MD Lymphocytes/100 WBC (Bld) 4 % Low 24-43 [facility] Comment on above: Performed By: #### C DP #### [place] [address] Chief Librarian Music Department: Francisco J Fonseca MD MCH (RBC) [Entitic mass] 27.6 pg Normal 25.2-33.5 [facility] Comment on above: Performed By: #### C DP #### [place] [address] Chief Librarian Music Department: Francisco J Fonseca MD MCHC (RBC) [Mass/Vol] 34.2 g/dL Normal 28.4-34.8 [facility] Comment on above: Performed By: #### C DP #### [place] [address] Chief Librarian Music Department: Francisco J Fonseca MD MCV (RBC) [Entitic vol] 80.7 fL Low 82.6-102.9 [facility] Comment on above: Performed By: #### C DP #### [place] [address] Chief Librarian Music Department: Francisco J Fonseca MD Monocytes (Bld) [#/Vol] 1.33 10*3/uL High 0.10-1.20 [facility] Comment on above: Performed By: #### C DP #### [address] [address] Chief Librarian Music Department: Francisco J Fonseca MD Monocytes/100 WBC (Bld) 6 % Normal 3-12 [facility] Comment on above: Performed By: #### C DP #### [address] [address] Chief Librarian Music Department: Francisco J Fonseca MD Neutrophil (Seg) 89 % High 36-65 [facility] Comment on above: Performed By: #### C DP #### [address] [address] Chief Librarian Music Department: Francisco J Fonseca MD NRBC Automated 0.0 per 100 WBC Normal 0.0 [facility] Comment on above: Performed By: #### C DP #### [address] [address] Chief Librarian Music Department: Francisco J Fonseca MD Platelet mean volume (Bld) [Entitic vol] 12.3 fL Normal 8.1-13.5 [facility] Comment on above: Performed By: #### C DP #### [address] [address] Chief Librarian Music Department: Francisco J Fonseca MD Platelets (Bld) [#/Vol] 245 10*3/uL Normal 138-453 [facility] Comment on above: Performed By: #### C DP #### [address] [address] Chief Librarian Music Department: Francisco J Fonseca MD RBC (Bld) [#/Vol] 4.35 10*6/uL Normal 4.21-5.77 [facility] Comment on above: Performed By: #### C DP #### [address] [address] Chief Librarian Music Department: Francisco J Fonseca MD RBC morphology finding Nom (Bld) ANISOCYTOSIS PRESENT Normal [facility] Comment on above: Result Comment: MICR OCYTOSIS PRESENT Performed By: #### C DP #### [facility] [address] [place], [place] [phone] Chief Librarian Music Department: Francisco J Fonseca MD WBC (Bld) [#/Vol] 21.4 10*3/uL High 3.5-11.3 [facility] Comment on above: Performed By: #### C DP #### [facility] [address] [place], [place] [id number] Chief Librarian Music Department: Francisco J Fonseca MD Cult,Urineon 01-04-2022 Cult,Urine Specimen Description .INDWELLING CATH URINE Culture NO GROWTH Report Status FINAL 01/04/2022 Normal [facility] Comment on above: Performed By: #### C DP, MELVIN, BMPX, IPF #### [facility] [place], [place] [id number] Chief Librarian Music Department: Francisco J Fonseca MD Laboratory - Chemistry and C hemistry - challengeon 01-04-2022 Anion gap [Moles/Vol] 15 mmol/L 9 - 17 mmol/L [facility] Calcium [Mass/Vol] 8.2 mg/dL Low 8.6 - 10. 4 mg/dL [facility] Chloride [Moles/Vol] 98 mmol/L 98 - 10 7 mmol/L [facility] CO2 [Moles/Vol] 23 mmol/L 20 - 31 mmol/L [facility] [employer] Creatinine [Mass/Vol] 0.66 mg/dL Low 0.70 - 1.20 mg/dL [facility] GFR/1.73 sq M.predicted MDRD (S/P/Bld) [Vol rate/Area] [facility] [employer] Comment on above: Average GFR for 70 o r more years old: 75 mL/min/1.73sq m Chronic Kidney Disease: <60 mL/min/1.73sq m Kidney failure: <15 mL/min/1.73sq m eGFR calculated using average adult body mass. Additional eGFR calculator available at: http://www.netprice.com.[employer]/multiple_crcl_2012.htm Glucose [Mass/Vol] 90 mg/dL 70 - 99 mg/dL [facility] Phosphate [Mass/Vol] 1.9 mg/dL Low 2.5 - 4 .5 mg/dL [facility] Potassium [Moles/Vol] 3.7 mmol/L 3.7 - 5.3 mmol/L [facility] Sodium [Moles/Vol] 136 mmol/L 135 - 144 mmol/L [facility] Urea nitrogen (BldV) [Mass/Vol] 20 mg/dL 8 - 23 mg/dL [facility] Magnesium [Mass/Vol] 1.5 mg/dL Low 1.6 - 2 .6 mg/dL [facility] Anion gap [Moles/Vol] 12 mmol/L 9 - 17 mmol/L [facility] Calcium [Mass/Vol] 8.1 mg/dL Low 8.6 - 10. 4 mg/dL [facility] Chloride [Moles/Vol] 99 mmol/L 98 - 10 7 mmol/L [facility] CO2 [Moles/Vol] 23 mmol/L 20 - 31 mmol/L [facility] Creatinine [Mass/Vol] 0.61 mg/dL Low 0.70 - 1.20 mg/dL [facility] GFR/1.73 sq M.predicted MDRD (S/P/Bld) [Vol rate/Area] [facility] Comment on above: Average GFR for 70 o r more years old: 75 mL/min/1.73sq m Chronic Kidney Disease: <60 mL/min/1.73sq m Kidney failure: <15 mL/min/1.73sq m eGFR calculated using average adult body mass. Additional eGFR calculator available at: http://www.netprice.com.N[employer]/multiple_crcl_2012.htm Glucose [Mass/Vol] 125 mg/dL High 70 - 99 mg/dL [facility] Potassium [Moles/Vol] 3.4 mmol/L Low 3.7 - 5.3 mmol/L [facility] Sodium [Moles/Vol] 134 mmol/L Low 135 - 144 mmol/L [facility] Urea nitrogen (BldV) [Mass/Vol] 19 mg/dL 8 - 23 mg/dL [facility] Phosphate [Mass/Vol] 2.2 mg/dL Low 2.5 - 4 .5 mg/dL [facility] Anion gap [Moles/Vol] 13 mmol/L 9 - 17 mmol/L [facility] Calcium [Mass/Vol] 8.4 mg/dL Low 8.6 - 10. 4 mg/dL [facility] Chloride [Moles/Vol] 101 mmol/L 98 - 10 7 mmol/L [facility] CO2 [Moles/Vol] 23 mmol/L 20 - 31 mmol/L [facility] Creatinine [Mass/Vol] 0.73 mg/dL 0.70 - 1.20 mg/dL [facility] GFR/1.73 sq M.predicted MDRD (S/P/Bld) [Vol rate/Area] [facility] Comment on above: Average GFR for 70 o r more years old: 75 mL/min/1.73sq m Chronic Kidney Disease: <60 mL/min/1.73sq m Kidney failure: <15 mL/min/1.73sq m eGFR calculated using average adult body mass. Additional eGFR calculator available at: http://www.[employer]/multiple_crcl_2011.htm Glucose [Mass/Vol] 124 mg/dL High 70 - 99 mg/dL [facility] Phosphate [Mass/Vol] 2.5 mg/dL 2.5 - 4 .5 mg/dL [facility] Potassium [Moles/Vol] 3.9 mmol/L 3.7 - 5.3 mmol/L [facility] Sodium [Moles/Vol] 137 mmol/L 135 - 144 mmol/L [facility] Urea nitrogen (BldV) [Mass/Vol] 24 mg/dL High 8 - 23 mg/dL [facility] Glucose [Mass/Vol] 108 mg/dL 75 - 110 mg/dL [facility] Anion gap [Moles/Vol] 12 mmol/L 9 - 17 mmol/L [facility] Calcium [Mass/Vol] 8.5 mg/dL Low 8.6 - 10. 4 mg/dL [facility] Chloride [Moles/Vol] 101 mmol/L 98 - 10 7 mmol/L [facility] CO2 [Moles/Vol] 23 mmol/L 20 - 31 mmol/L [facility] Creatinine [Mass/Vol] 0.82 mg/dL 0.70 - 1.20 mg/dL [facility] GFR/1.73 sq M.predicted MDRD (S/P/Bld) [Vol rate/Area] [facility] Comment on above: Average GFR for 70 o r more years old: 75 mL/min/1.73sq m Chronic Kidney Disease: <60 mL/min/1.73sq m Kidney failure: <15 mL/min/1.73sq m eGFR calculated using average adult body mass. Additional eGFR calculator available at: http://www.[employer]/multiple_crcl_2011.htm Glucose [Mass/Vol] 100 mg/dL High 70 - 99 mg/dL [facility] Phosphate [Mass/Vol] 2.7 mg/dL 2.5 - 4 .5 mg/dL [facility] Potassium [Moles/Vol] 3.9 mmol/L 3.7 - 5.3 mmol/L [facility] Sodium [Moles/Vol] 136 mmol/L 135 - 144 mmol/L [facility] Urea nitrogen (BldV) [Mass/Vol] 26 mg/dL High 8 - 23 mg/dL [facility] Glucose [Mass/Vol] 81 mg/dL 75 - 110 mg/dL [facility] Anion gap [Moles/Vol] 11 mmol/L 9 - 17 mmol/L [facility] Calcium [Mass/Vol] 8.3 mg/dL Low 8.6 - 10. 4 mg/dL [facility] Chloride [Moles/Vol] 104 mmol/L 98 - 10 7 mmol/L [facility] CO2 [Moles/Vol] 21 mmol/L 20 - 31 mmol/L [facility] Creatinine [Mass/Vol] 0.83 mg/dL 0.70 - 1.20 mg/dL [facility] GFR/1.73 sq M.predicted MDRD (S/P/Bld) [Vol rate/Area] [facility] Comment on above: Average GFR for 70 o r more years old: 75 mL/min/1.73sq m Chronic Kidney Disease: <60 mL/min/1.73sq m Kidney failure: <15 mL/min/1.73sq m eGFR calculated using average adult body mass. Additional eGFR calculator available at: http://www.[employer]/multiple_crcl_2012.htm Glucose [Mass/Vol] 71 mg/dL 70 - 99 mg/dL [facility] Phosphate [Mass/Vol] 3.2 mg/dL 2.5 - 4 .5 mg/dL [facility] Potassium [Moles/Vol] 4.5 mmol/L 3.7 - 5.3 mmol/L [facility] Comment on above: SPECIMEN SLIGHTLY HE MOLYZED, RESULTS MAY BE ADVERSELY AFFECTED. Sodium [Moles/Vol] 136 mmol/L 135 - 144 mmol/L [facility] Urea nitrogen (BldV) [Mass/Vol] 29 mg/dL High 8 - 23 mg/dL [facility] Laboratory - Hematology and Cell countson 01-04-2022 Basophils (Bld) [#/Vol] 0.04 10*3/uL [facility] Basophils/100 WBC (Bld) 0 % 0 - 2 % [facility] Eosinophils/100 WBC (Bld) 0 % Low 1 - 4 % [facility] Hematocrit (Bld) [Volume fraction] 35.1 % Low 40.7 - 50.3 % [facility] Hemoglobin (Bld) [Mass/Vol] 12.0 g/dL Low 13.0 - 17.0 g/dL [facility] Immature granulocytes/100 WBC (Bld) 1 % High 0 [facility] Lymphocytes/100 WBC (Bld) 4 % Low 24 - 43 % [facility] MCH (RBC) [Entitic mass] 27.6 pg 25.2 - 33.5 pg [facility] MCHC (RBC) [Mass/Vol] 34.2 g/dL 28.4 - 34.8 g/dL [facility] MCV (RBC) [Entitic vol] 80.7 fL Low 82.6 - 102.9 fL [facility] Monocytes/100 WBC (Bld) 6 % 3 - 12 % [facility] Platelet distribution width (Bld) [Ratio] 19.0 % High 11.8 - 14.4 % [facility] Platelet mean volume (Bld) [Entitic vol] 12.3 fL 8.1 - 13.5 fL [facility] Platelets (Bld) [#/Vol] 245 10*3/uL [facility] RBC (Bld) [#/Vol] 4.35 10*6/uL 4.21 - 5.77 m/uL [facility] RBC (Bld) [#/Vol] ANISOCYTOSIS PRESENT [facility] Comment on above: MICROCYTOSIS PRESENT Segmented neutrophils/100 WBC (Bld) 89 % High 36 - 65 % [facility] WBC (Bld) [#/Vol] 21.4 10*3/uL High [facility] - Microbiology an d Antimicrobial susceptibilityon 01-04-2022 Bacteria identified Cx Nom (U) NO GROWTH [facility] Magnesiumon 01-04-2022 Magnesium [Mass/Vol] 1.5 mg/dL Low 1.6-2.6 [facility] Comment on above: Performed By: #### C DP, MELVIN, BMPX, IPF #### [facility] [address] [place], [place] [id number] Chief Librarian Music Department: Francisco J Fonseca MD No Panel Informationon 01-04 GFR >60 >60 mL/min [facility] GFR Non- >60 >60 mL/min [facility] Interpretation and review of laboratory results Abnormal [facility] Interpretation and review of laboratory results Abnormal [facility] GFR >60 >60 mL/min [facility] GFR Non- >60 >60 mL/min [facility] Interpretation and review of laboratory results Abnormal [facility] Interpretation and review of laboratory results Abnormal [facility] GFR >60 >60 mL/min [...] Low [facility] Absolute [place] # 1.33 High [facility] [...] 022 Phosphorus, Inorg. 2.2 mg/dL Low 2.5-4.5 [facility] Comment on above: Performed By: #### C DP, MELVIN, BMPX, IPF #### [facility] [address] [place] [address] Chief Librarian Music Department: Francisco J Fonseca MD Phosphorus, Inorg. 2.5 mg/dL Normal 2.5-4.5 [facility] Comment on above: Performed By: #### C DP, MELVIN, BMPX, IPF #### [facility] [address] [place] [id number] Chief Librarian Music Department: Francisco J Fonseca MD Phosphorus, Inorg. 2.7 mg/dL Normal 2.5-4.5 [facility] Comment on above: Performed By: #### B MPX, MELVIN #### [address] [id number] Chief Librarian Music Department: Francisco J Fonseca MD Phosphorus, Inorg. 3.2 mg/dL Normal 2.5-4.5 [facility] Comment on above: Performed By: #### C DP #### [place] [address] Chief Librarian Music Department: Francisco J Fonseca MD Basic Metab w/rfx MGon 01-03 (cont.) Normal [facility] Comment on above: Result Comment: Aver age GFR for 70 or more years old: 75 mL/min/1.73sq m Chronic Kidney Disease: <60 mL/min/1.73sq m Kidney failure: <15 mL/min/1.73sq m eGFR calculated using average adult body mass. Additional eGFR calculator available at: http://www.[employer]/multiple_crcl_2011.htm Performed By: #### C DP, MELVIN, BMPX, IPF #### [place] [address] Chief Librarian Music Department: Francisco J Fonseca MD Anion gap [Moles/Vol] 12 mmol/L Normal 9-17 [facility] Comment on above: Performed By: #### C DP, MELVIN, BMPX, IPF #### [facility] [address] [place] [address] Chief Librarian Music Department: Francisco J Fonseca MD Calcium [Mass/Vol] 8.3 mg/dL Low 8.6-10.4 [facility] Comment on above: Performed By: #### C DP, MELVIN, BMPX, IPF #### [facility] [address] [place] [address] Chief Librarian Music Department: Francisco J Fonseca MD Chloride [Moles/Vol] 102 mmol/L Normal 98-107 [facility] Comment on above: Performed By: #### C DP, MELVIN, BMPX, IPF #### [facility] [address] [place] [address] Chief Librarian Music Department: Francisco J Fonseca MD CO2 [Moles/Vol] 21 mmol/L Normal 20-31 [facility] Comment on above: Performed By: #### C DP, MELVIN, BMPX, IPF #### [facility] [address] [place] [address] Chief Librarian Music Department: Francisco J Fonseca MD Creatinine [Mass/Vol] 0.88 mg/dL Normal 0.70-1.20 [facility] Comment on above: Performed By: #### C DP, MELVIN, BMPX, IPF #### [facility] [address] [place] [address] Chief Librarian Music Department: Francisco J Fonseca MD GFR, Amer >60 Normal >60 [facility] Comment on above: Performed By: #### C DP, MELVIN, BMPX, IPF #### [facility] [address] [place] [address] Chief Librarian Music Department: Francisco J Fonseca MD GFR,non Amer >60 Normal >60 [facility] Comment on above: Performed By: #### C DP, MELVIN, BMPX, IPF #### [facility] [address] [place] [address] Chief Librarian Music Department: Francisco J Fonseca MD Glucose [Mass/Vol] 74 mg/dL Normal 70-99 [facility] Comment on above: Performed By: #### C DP, MELVIN, BMPX, IPF #### [facility] [address] [place] [address] Chief Librarian Music Department: Francisco J Fonseca MD Potassium [Moles/Vol] 4.2 mmol/L Normal 3.7-5.3 [facility] Comment on above: Performed By: #### C DP, MELVIN, BMPX, IPF #### [facility] [address] [place] [address] Chief Librarian Music Department: Francisco J Fonseca MD Sodium [Moles/Vol] 135 mmol/L Normal 135-144 [facility] Comment on above: Performed By: #### C DP, MELVIN, BMPX, IPF #### [facility] [address] [place] [address] Chief Librarian Music Department: Francisco J Fonseca MD Urea nitrogen [Mass/Vol] 29 mg/dL High 8-23 [facility] Comment on above: Performed By: #### C DP, MELVIN, BMPX, IPF #### [address] [address] Chief Librarian Music Department: Francisco J Fonseca MD (cont.) [facility] Comment on above: Result Comment: Aver age GFR for 70 or more years old: 75 mL/min/1.73sq m Chronic Kidney Disease: <60 mL/min/1.73sq m Kidney failure: <15 mL/min/1.73sq m eGFR calculated using average adult body mass. Additional eGFR calculator available at: http://www.netprice.com.[employer]/multiple_crcl_2012.htm Performed By: #### C DP #### [address] [address] Chief Librarian Music Department: Francisco J Fonseca MD Anion gap [Moles/Vol] 12 mmol/L Normal 9-17 [facility] Comment on above: Performed By: #### C DP #### [facility] [address] [place] [address] Chief Librarian Music Department: Francisco J Fonseca MD Calcium [Mass/Vol] 8.4 mg/dL Low 8.6-10.4 [facility] Comment on above: Performed By: #### C DP #### [place] [address] [place] [address] Chief Librarian Music Department: Francisco J Fonseca MD Chloride [Moles/Vol] 103 mmol/L Normal 98-107 [facility] Comment on above: Performed By: #### C DP #### [address] [address] Chief Librarian Music Department: Francisco J Fonseca MD CO2 [Moles/Vol] 21 mmol/L Normal 20-31 [facility] Comment on above: Performed By: #### C DP #### [address] [address] Chief Librarian Music Department: Francisco J Fonseca MD Creatinine [Mass/Vol] 0.93 mg/dL Normal 0.70-1.20 [facility] Comment on above: Performed By: #### C DP #### [address] [address] Chief Librarian Music Department: Francisco J Fonseca MD GFR, Amer >60 Normal >60 [facility] Comment on above: Performed By: #### C DP #### [address] [address] Chief Librarian Music Department: Francisco J Fonseca MD GFR,non Amer >60 Normal >60 [facility] [facility] Comment on above: Performed By: #### C DP #### [address] [address] [employer]arian [employer] Department: Francisco J Fonseca MD Glucose [Mass/Vol] 155 mg/dL High 70-99 [facility] Comment on above: Performed By: #### C DP #### [address] [address] [employer]arian [employer] Department: Francisco J Fonseca MD Potassium [Moles/Vol] 3.9 mmol/L Normal 3.7-5.3 [facility] Comment on above: Performed By: #### C DP #### [address] [address] [employer] Librarian [employer] Department: Francisco J oFnseca MD Sodium [Moles/Vol] 136 mmol/L Normal 135-144 [facility] Comment on above: Performed By: #### C DP #### [address] [address] [employer] Librarian [employer] Department: Francisco J Fonseca MD Urea nitrogen [Mass/Vol] 28 mg/dL High 8-23 [facility] Comment on above: Performed By: #### C DP #### [address] [address] [employer] Librarian [employer] Department: Francisco J Fonseca MD (cont.) Normal [facility] Comment on above: Result Comment: Aver age GFR for 70 or more years old: 75 mL/min/1.73sq m Chronic Kidney Disease: <60 mL/min/1.73sq m Kidney failure: <15 mL/min/1.73sq m eGFR calculated using average adult body mass. Additional eGFR calculator available at: http://www.[employer]/multiple_crcl_2011.htm Performed By: #### C DP, MELVIN, BMPX, IPF #### [address] [address] [employer]arian [employer] Department: Francisco J Fonseca MD Anion gap [Moles/Vol] 11 mmol/L Normal 9-17 [facility] Comment on above: Performed By: #### C DP, MELVIN, BMPX, IPF #### [address] [address] [employer] Librarian [employer] Department: Francisco J Fonseca MD Calcium [Mass/Vol] 8.4 mg/dL Low 8.6-10.4 [facility] Comment on above: Performed By: #### C DP, MELVIN, BMPX, IPF #### [facility] [address] [place] [address] Chief Librarian Music Department: Francisco J Fonseca MD Chloride [Moles/Vol] 103 mmol/L Normal 98-107 [facility] Comment on above: Performed By: #### C DP, MELVIN, BMPX, IPF #### [facility] [address] [place] [address] Chief Librarian [employer] Department: Francisco J Fonseca MD CO2 [Moles/Vol] 24 mmol/L Normal 20-31 [facility] Comment on above: Performed By: #### C DP, MELVIN, BMPX, IPF #### [facility] [address] [place] [address] Chief L[employer]arian [employer] Department: Francisco J Fonseca MD Creatinine [Mass/Vol] 0.92 mg/dL Normal 0.70-1.20 [facility] Comment on above: Performed By: #### C DP, MELVIN, BMPX, IPF #### [facility] [address] [place] [address] Chief Librarian Music Department: Francisco J Fonseca MD GFR, Amer >60 Normal >60 [facility] Comment on above: Performed By: #### C DP, MELVIN, BMPX, IPF #### [facility] [address] [place] [address] Chief Librarian Music Department: Francisco J Fonseca MD GFR,non Amer >60 Normal >60 [facility] Comment on above: Performed By: #### C DP, MELVIN, BMPX, IPF #### [facility] [address] [place] [address] Chief Librarian Music Department: Francisco J Fonseca MD Glucose [Mass/Vol] 226 mg/dL High 70-99 [facility] Comment on above: Performed By: #### C DP, MELVIN, BMPX, IPF #### [facility] [address] [place] [address] Chief Librarian [employer] Department: Francisco J Fonseca MD Potassium [Moles/Vol] 5.0 mmol/L Normal 3.7-5.3 [facility] Comment on above: Performed By: #### C DP, MELVIN, BMPX, IPF #### [facility] [address] [place] [address] Chief Librarian Music Department: Francisco J Fonseca MD Sodium [Moles/Vol] 138 mmol/L Normal 135-144 [facility] Comment on above: Performed By: #### C DP, MELVIN, BMPX, IPF #### [facility] [address] [place] [address] Chief Librarian Music Department: Francisco J Fonseca MD Urea nitrogen [Mass/Vol] 26 mg/dL High 8-23 [facility] Comment on above: Performed By: #### C DP, MELVIN, BMPX, IPF #### [facility] [address] [place] [address] Chief Librarian Music Department: Francisco J Fonseca MD (cont.) [facility] Comment on above: Result Comment: Aver age GFR for 70 or more years old: 75 mL/min/1.73sq m Chronic Kidney Disease: <60 mL/min/1.73sq m Kidney failure: <15 mL/min/1.73sq m eGFR calculated using average adult body mass. Additional eGFR calculator available at: http://www.netprice.com.[employer]/multiple_crcl_2012.htm Performed By: #### C DP, MELVIN, BMPX, IPF #### [address] [address] Chief Librarian [employer] Department: Francisco J Fonseca MD Anion gap [Moles/Vol] 13 mmol/L Normal 9-17 [facility] Comment on above: Performed By: #### C DP, MELVIN, BMPX, IPF #### [facility] [address] [place] [address] Chief Librarian Music Department: Francisco J Fonseca MD Calcium [Mass/Vol] 8.4 mg/dL Low 8.6-10.4 [facility] Comment on above: Performed By: #### C DP, MELVIN, BMPX, IPF #### [facility] [address] [place] [address] Chief Librarian Music Department: Francisco J Fonseca MD Chloride [Moles/Vol] 104 mmol/L Normal 98-107 [facility] Comment on above: Performed By: #### C DP, MELVIN, BMPX, IPF #### [facility] [address] [place] [address] Chief Librarian Music Department: Francisco J Fonseca MD CO2 [Moles/Vol] 21 mmol/L Normal 20-31 [facility] Comment on above: Performed By: #### C DP, MELVIN, BMPX, IPF #### [address] [address] Chief Librarian Music Department: Francisco J Fonseca MD Creatinine [Mass/Vol] 0.84 mg/dL Normal 0.70-1.20 [facility] Comment on above: Performed By: #### C DP, MELVIN, BMPX, IPF #### [address] [address] Chief Librarian Music Department: Francisco J Fonseca MD GFR, Amer >60 Normal >60 [facility] Comment on above: Performed By: #### C DP, MELVIN, BMPX, IPF #### [address] [address] Chief Librarian Music Department: Francisco J Fonseca MD GFR,non Amer >60 Normal >60 [facility] Comment on above: Performed By: #### C DP, MELVIN, BMPX, IPF #### [facility] [address] [place] [address] Chief Librarian Music Department: Francisco J Fonseca MD Glucose [Mass/Vol] 176 mg/dL High 70-99 [facility] Comment on above: Performed By: #### C DP, MELVIN, BMPX, IPF #### [facility] [address] [place] [address] Chief Librarian Music Department: Francisco J Fonseca MD Potassium [Moles/Vol] 4.5 mmol/L Normal 3.7-5.3 [facility] Comment on above: Performed By: #### C DP, MELVIN, BMPX, IPF #### [facility] [place] [address] Chief Librarian Music Department: Francisco J Fonseca MD Sodium [Moles/Vol] 138 mmol/L Normal 135-144 [facility] Comment on above: Performed By: #### C DP, MELVIN, BMPX, IPF #### [facility] [address] [place] [address] Chief Librarian Music Department: Francisco J Fonseca MD Urea nitrogen [Mass/Vol] 21 mg/dL Normal 8-23 [facility] Comment on above: Performed By: #### C DP, MELVIN, BMPX, IPF #### [facility] [address] [place] [address] Chief Librarian Music Department: Francisco J Fonseca MD (cont.) [facility] Comment on above: Result Comment: Aver age GFR for 70 or more years old: 75 mL/min/1.73sq m Chronic Kidney Disease: <60 mL/min/1.73sq m Kidney failure: <15 mL/min/1.73sq m eGFR calculated using average adult body mass. Additional eGFR calculator available at: http://www.netprice.com.[employer]/multiple_crcl_2012.htm Performed By: #### C DP, MELVIN, BMPX, IPF #### [facility] [address] [place] [address] Chief Librarian Music Department: Francisco J Fonseca MD Anion gap [Moles/Vol] 6 mmol/L Low 9-17 [facility] Comment on above: Performed By: #### C DP, MELVIN, BMPX, IPF #### [employer] [address] [place] [address] Chief Librarian Music Department: Francisco J Fonseca MD Calcium [Mass/Vol] 8.5 mg/dL Low 8.6-10.4 [facility] Comment on above: Performed By: #### C DP, MELVIN, BMPX, IPF #### [facility] [address] [place] [address] Chief Librarian Music Department: Francisco J Fonseca MD Chloride [Moles/Vol] 105 mmol/L Normal 98-107 [facility] Comment on above: Performed By: #### C DP, MELVIN, BMPX, IPF #### [facility] [address] [place] [address] Chief Librarian Music Department: Francisco J Fonseca MD CO2 [Moles/Vol] 25 mmol/L Normal 20-31 [facility] Comment on above: Performed By: #### C DP, MELVIN, BMPX, IPF #### [address] [address] Chief Librarian Music Department: Francisco J Fonseca MD Creatinine [Mass/Vol] 0.75 mg/dL Normal 0.70-1.20 [facility] Comment on above: Performed By: #### C DP, MELVIN, BMPX, IPF #### [facility] [address] [place] [address] Chief Librarian Music Department: Francisco J Fonseca MD GFR, Amer >60 Normal >60 [facility] Comment on above: Performed By: #### C DP, MELVIN, BMPX, IPF #### [facility] [address] [place] [address] Chief Librarian Music Department: Francisco J Fonseca MD GFR,non Amer >60 Normal >60 [facility] Comment on above: Performed By: #### C DP, MELVIN, BMPX, IPF #### [facility] [address] [place] [address] Chief Librarian Music Department: Francisco J Fonseca MD Glucose [Mass/Vol] 81 mg/dL Normal 70-99 [facility] Comment on above: Performed By: #### C DP, MELVIN, BMPX, IPF #### [facility] [address] [place] [address] Chief Librarian Music Department: Francisco J Fonseca MD Potassium [Moles/Vol] 4.6 mmol/L Normal 3.7-5.3 [facility] Comment on above: Performed By: #### C DP, MELVIN, BMPX, IPF #### [address] [address] Chief Librarian Music Department: Francisco J Fonseca MD Sodium [Moles/Vol] 136 mmol/L Normal 135-144 [facility] Comment on above: Performed By: #### C DP, MELVIN, BMPX, IPF #### [place] [address] Chief Librarian Music Department: Francisco J Fonseca MD Urea nitrogen [Mass/Vol] 18 mg/dL Normal 8-23 [facility] Comment on above: Performed By: #### C DP, MELVIN, BMPX, IPF #### [place] [address] Chief Librarian Music Department: Francisco J Fonseca MD CBC with Diffon 01-03-2022 Abs. Basophil 0.00 k/uL Normal 0.0-0.2 [facility] Comment on above: Performed By: #### C DP #### [place] [address] Chief Librarian Music Department: Francisco J Fonseca MD Abs.Imm.Granulocyte 0.00 k/uL Normal 0.00-0.30 [facility] Comment on above: Performed By: #### C DP #### [place] [address] Chief Librarian Music Department: Francisco J Fonseca MD Abs.Neutrophil (Seg) 19.89 k/uL High 1.8-7.7 [facility] Comment on above: Performed By: #### C DP #### [place] [address] Chief Librarian Music Department: Francisco J Fonseca MD Basophils/100 WBC (Bld) 0 % Normal 0-2 [facility] Comment on above: Performed By: #### C DP #### [address] [address] Chief Librarian Music Department: Francisco J Fonseca MD Eosinophils (Bld) [#/Vol] 0.00 10*3/uL Normal 0.0-0.4 [facility] Comment on above: Performed By: #### C DP #### [address] [address] Chief Librarian Music Department: Francisco J Fonseca MD Eosinophils/100 WBC (Bld) 0 % Low 1-4 [facility] Comment on above: Performed By: #### C DP #### [address] [address] Chief Librarian Music Department: Francisco J Fonseca MD Immature granulocytes/100 WBC (Bld) 0 % Normal 0 [facility] Comment on above: Performed By: #### C DP #### [address] [address] Chief Librarian Music Department: Francisco J Fonseca MD Lymphocytes (Bld) [#/Vol] 0.88 10*3/uL Low 1.0-4.8 [facility] Comment on above: Performed By: #### C DP #### [address] [address] Chief Librarian Music Department: Francisco J Fonseca MD Lymphocytes/100 WBC (Bld) 4 % Low 24-44 [facility] Comment on above: Performed By: #### C DP #### [address] [address] Chief Librarian Music Department: Francisco J Fonseca MD Monocytes (Bld) [#/Vol] 1.33 10*3/uL High 0.1-0.8 [facility] Comment on above: Performed By: #### C DP #### [address] [address] Chief Librarian Music Department: Francisco J Fonseca MD Monocytes/100 WBC (Bld) 6 % Normal 1-7 [facility] Comment on above: Performed By: #### C DP #### [address] [address] Chief Librarian Music Department: Francisco J Fonseca MD Morphology Walter (Bld) [Interp] MICROCYTOSIS PRESENT Normal [facility] Comment on above: Result Comment: ANIS OCYTOSIS PRESENT 1+ ACANTHOCYTES Performed By: #### C DP #### [address] [address] Chief Librarian Music Department: Francisco J Fonseca MD Neutrophil (Seg) 90 % High 36-66 [facility] Comment on above: Performed By: #### C DP #### [address] [address] Chief Librarian Music Department: Francisco J Fonseca MD Erythrocyte distribution width (RBC) [Ratio] 18.9 % High 11.8-14.4 [facility] Comment on above: Performed By: #### C DP #### [address] [address] Chief Librarian Music Department: Francisco J Fonseca MD Hematocrit (Bld) [Volume fraction] 37.4 % Low 40.7-50.3 [facility] Comment on above: Performed By: #### C DP #### [address] [address] Chief Librarian Music Department: Francisco J Fonseca MD Hemoglobin (Bld) [Mass/Vol] 12.2 g/dL Low 13.0-17.0 [facility] Comment on above: Performed By: #### C DP #### [address] [address] Chief Librarian Music Department: Francisco J Fonseca MD MCH (RBC) [Entitic mass] 26.9 pg Normal 25.2-33.5 [facility] Comment on above: Performed By: #### C DP #### [address] [address] Chief Librarian Music Department: Francisco J Fonseca MD MCHC (RBC) [Mass/Vol] 32.6 g/dL Normal 28.4-34.8 [facility] Comment on above: Performed By: #### C DP #### [address] [address] Chief Librarian Music Department: Fracnisco J Fonseca MD MCV (RBC) [Entitic vol] 82.4 fL Low 82.6-102.9 [facility] Comment on above: Performed By: #### C DP #### [address] [address] Chief Librarian Music Department: Francisco J Fonseca MD NRBC Automated 0.0 per 100 WBC Normal 0.0 [facility] Comment on above: Performed By: #### C DP #### [address] [address] Chief Librarian Music Department: Francisco J Fonseca MD Platelet mean volume (Bld) [Entitic vol] 12.6 fL Normal 8.1-13.5 [facility] Comment on above: Performed By: #### C DP #### [address] [address] Chief Librarian Music Department: Francisco J Fonseca MD Platelets (Bld) [#/Vol] 292 10*3/uL Normal 138-453 [facility] Comment on above: Performed By: #### C DP #### [address] [address] Chief Librarian Music Department: Francisco J Fonseca MD RBC (Bld) [#/Vol] 4.54 10*6/uL Normal 4.21-5.77 [facility] Comment on above: Performed By: #### C DP #### [address] [address] Chief Librarian Music Department: Francisco J Fonseca MD WBC (Bld) [#/Vol] 22.1 10*3/uL High 3.5-11.3 [facility] Comment on above: Performed By: #### C DP #### [facility] [address] [place], [place] [address] Chief Librarian Music Department: Francisco J Fonseca MD Hemoglobin A1Con 0135 Glucose [Mass/Vol] 223 mg/dL Normal [facility] Comment on above: Result Comment: The ADA and AACC recommend providing the estimated average glucose result to permit better patient understanding of their HBA1c result. Performed By: #### C DP, MELVIN, BMPX, IPF #### [facility] [place], [place] [id number] Chief Librarian Music Department: Francisco J Fonseca MD HbA1c (Bld) [Mass fraction] 9.4 % High 4.0-6.0 [facility] Comment on above: Performed By: #### C DP, MELVIN, BMPX, IPF #### [facility] [place] [address] Chief Librarian Music Department: Francisco J Fonseca MD Laboratory - Chemistry and C hemistry - challengeon 4 Anion gap [Moles/Vol] 12 mmol/L 9 - 17 mmol/L [facility] [employer] Calcium [Mass/Vol] 8.3 mg/dL Low 8.6 - 10. 4 mg/dL [facility] Chloride [Moles/Vol] 102 mmol/L 98 - 10 7 mmol/L [facility] CO2 [Moles/Vol] 21 mmol/L 20 - 31 mmol/L [facility] Creatinine [Mass/Vol] 0.88 mg/dL 0.70 - 1.20 mg/dL [facility] [employer] GFR/1.73 sq M.predicted MDRD (S/P/Bld) [Vol rate/Area] [facility] Comment on above: Average GFR for 70 o r more years old: 75 mL/min/1.73sq m Chronic Kidney Disease: <60 mL/min/1.73sq m Kidney failure: <15 mL/min/1.73sq m eGFR calculated using average adult body mass. Additional eGFR calculator available at: http://www.[employer]/multiple_crcl_2012.htm Glucose [Mass/Vol] 74 mg/dL 70 - 99 mg/dL [facility] Phosphate [Mass/Vol] 3.3 mg/dL 2.5 - 4 .5 mg/dL [facility] Potassium [Moles/Vol] 4.2 mmol/L 3.7 - 5.3 mmol/L [facility] Sodium [Moles/Vol] 135 mmol/L 135 - 144 mmol/L [facility] Urea nitrogen (BldV) [Mass/Vol] 29 mg/dL High 8 - 23 mg/dL [facility] Glucose [Mass/Vol] 69 mg/dL Low 75 - 110 mg/dL [facility] Glucose [Mass/Vol] 93 mg/dL 75 - 110 mg/dL [facility] Glucose [Mass/Vol] 55 mg/dL Low 75 - 110 mg/dL [facility] Comment on above: Critical Noted Glucose [Mass/Vol] 88 mg/dL 75 - 110 mg/dL [facility] Anion gap [Moles/Vol] 12 mmol/L 9 - 17 mmol/L [facility] Calcium [Mass/Vol] 8.4 mg/dL Low 8.6 - 10. 4 mg/dL [facility] Chloride [Moles/Vol] 103 mmol/L 98 - 10 7 mmol/L [facility] CO2 [Moles/Vol] 21 mmol/L 20 - 31 mmol/L [facility] Creatinine [Mass/Vol] 0.93 mg/dL 0.70 - 1.20 mg/dL [facility] GFR/1.73 sq M.predicted MDRD (S/P/Bld) [Vol rate/Area] [facility] Comment on above: Average GFR for 70 o r more years old: 75 mL/min/1.73sq m Chronic Kidney Disease: <60 mL/min/1.73sq m Kidney failure: <15 mL/min/1.73sq m eGFR calculated using average adult body mass. Additional eGFR calculator available at: http://www.[employer]/multiple_crcl_2012.htm Glucose [Mass/Vol] 155 mg/dL High 70 - 99 mg/dL [facility] Phosphate [Mass/Vol] 2.9 mg/dL 2.5 - 4 .5 mg/dL [facility] Potassium [Moles/Vol] 3.9 mmol/L 3.7 - 5.3 mmol/L [facility] Sodium [Moles/Vol] 136 mmol/L 135 - 144 mmol/L [facility] Urea nitrogen (BldV) [Mass/Vol] 28 mg/dL High 8 - 23 mg/dL [facility] Glucose [Mass/Vol] 152 mg/dL High 75 - 110 mg/dL [facility] Glucose [Mass/Vol] 216 mg/dL High 75 - 110 mg/dL [facility] Glucose [Mass/Vol] 242 mg/dL High 75 - 110 mg/dL [facility] Glucose [Mass/Vol] 243 mg/dL High 75 - 110 mg/dL [facility] Anion gap [Moles/Vol] 11 mmol/L 9 - 17 mmol/L [facility] Calcium [Mass/Vol] 8.4 mg/dL Low 8.6 - 10. 4 mg/dL [facility] Chloride [Moles/Vol] 103 mmol/L 98 - 10 7 mmol/L [facility] CO2 [Moles/Vol] 24 mmol/L 20 - 31 mmol/L [facility] Creatinine [Mass/Vol] 0.92 mg/dL 0.70 - 1.20 mg/dL [facility] GFR/1.73 sq M.predicted MDRD (S/P/Bld) [Vol rate/Area] [facility] Comment on above: Average GFR for 70 o r more years old: 75 mL/min/1.73sq m Chronic Kidney Disease: <60 mL/min/1.73sq m Kidney failure: <15 mL/min/1.73sq m eGFR calculated using average adult body mass. Additional eGFR calculator available at: http://www.[employer]/multiple_crcl_2012.htm Glucose [Mass/Vol] 226 mg/dL High 70 - 99 mg/dL [facility] Phosphate [Mass/Vol] 3.5 mg/dL 2.5 - 4 .5 mg/dL [facility] Potassium [Moles/Vol] 5.0 mmol/L 3.7 - 5.3 mmol/L [facility] Sodium [Moles/Vol] 138 mmol/L 135 - 144 mmol/L [facility] Urea nitrogen (BldV) [Mass/Vol] 26 mg/dL High 8 - 23 mg/dL [facility] Glucose [Mass/Vol] 214 mg/dL High 75 - 110 mg/dL [facility] Anion gap [Moles/Vol] 13 mmol/L 9 - 17 mmol/L [facility] Calcium [Mass/Vol] 8.4 mg/dL Low 8.6 - 10. 4 mg/dL [facility] Chloride [Moles/Vol] 104 mmol/L 98 - 10 7 mmol/L [facility] CO2 [Moles/Vol] 21 mmol/L 20 - 31 mmol/L [facility] Creatinine [Mass/Vol] 0.84 mg/dL 0.70 - 1.20 mg/dL [facility] GFR/1.73 sq M.predicted MDRD (S/P/Bld) [Vol rate/Area] [facility] Comment on above: Average GFR for 70 o r more years old: 75 mL/min/1.73sq m Chronic Kidney Disease: <60 mL/min/1.73sq m Kidney failure: <15 mL/min/1.73sq m eGFR calculated using average adult body mass. Additional eGFR calculator available at: http://www.[employer]/multiple_crcl_2012.htm Glucose [Mass/Vol] 176 mg/dL High 70 - 99 mg/dL [facility] Phosphate [Mass/Vol] 3.1 mg/dL 2.5 - 4 .5 mg/dL [facility] Potassium [Moles/Vol] 4.5 mmol/L 3.7 - 5.3 mmol/L [facility] Sodium [Moles/Vol] 138 mmol/L 135 - 144 mmol/L [facility] Urea nitrogen (BldV) [Mass/Vol] 21 mg/dL 8 - 23 mg/dL [facility] Glucose [Mass/Vol] 126 mg/dL High 75 - 110 mg/dL [facility] Glucose [Mass/Vol] 165 mg/dL High 75 - 110 mg/dL [facility] Glucose [Mass/Vol] 142 mg/dL High 75 - 110 mg/dL [facility] Glucose [Mass/Vol] 89 mg/dL 75 - 110 mg/dL [facility] Glucose [Mass/Vol] 71 mg/dL Low 75 - 110 mg/dL [facility] Glucose [Mass/Vol] 82 mg/dL 75 - 110 mg/dL [facility] Glucose [Mass/Vol] 128 mg/dL High 75 - 110 mg/dL [facility] Anion gap [Moles/Vol] 6 mmol/L Low 9 - 17 mmol/L [facility] Calcium [Mass/Vol] 8.5 mg/dL Low 8.6 - 10. 4 mg/dL [facility] Chloride [Moles/Vol] 105 mmol/L 98 - 10 7 mmol/L [facility] CO2 [Moles/Vol] 25 mmol/L 20 - 31 mmol/L [facility] Creatinine [Mass/Vol] 0.75 mg/dL 0.70 - 1.20 mg/dL [facility] GFR/1.73 sq M.predicted MDRD (S/P/Bld) [Vol rate/Area] [facility] Comment on above: Average GFR for 70 o r more years old: 75 mL/min/1.73sq m Chronic Kidney Disease: <60 mL/min/1.73sq m Kidney failure: <15 mL/min/1.73sq m eGFR calculated using average adult body mass. Additional eGFR calculator available at: http://www.[employer]/multiple_crcl_2012.htm Glucose [Mass/Vol] 81 mg/dL 70 - 99 mg/dL [facility] Phosphate [Mass/Vol] 2.5 mg/dL 2.5 - 4 .5 mg/dL [facility] Potassium [Moles/Vol] 4.6 mmol/L 3.7 - 5.3 mmol/L [facility] Sodium [Moles/Vol] 136 mmol/L 135 - 144 mmol/L [facility] Urea nitrogen (BldV) [Mass/Vol] 18 mg/dL 8 - 23 mg/dL [facility] Glucose [Mass/Vol] 187 mg/dL High 75 - 110 mg/dL [facility] Laboratory - Hematology and Cell countson 01-03-2022 Basophils (Bld) [#/Vol] 0.00 10*3/uL [facility] Basophils/100 WBC (Bld) 0 % 0 - 2 % [facility] Eosinophils/100 WBC (Bld) 0 % Low 1 - 4 % [facility] Hematocrit (Bld) [Volume fraction] 37.4 % Low 40.7 - 50.3 % [facility] Hemoglobin (Bld) [Mass/Vol] 12.2 g/dL Low 13.0 - 17.0 g/dL [facility] Immature granulocytes/100 WBC (Bld) 0 % 0 [facility] Lymphocytes/100 WBC (Bld) 4 % Low 24 - 44 % [facility] MCH (RBC) [Entitic mass] 26.9 pg 25.2 - 33.5 pg [facility] MCHC (RBC) [Mass/Vol] 32.6 g/dL 28.4 - 34.8 g/dL [facility] MCV (RBC) [Entitic vol] 82.4 fL Low 82.6 - 102.9 fL [facility] Monocytes/100 WBC (Bld) 6 % 1 - 7 % [facility] Morphology Walter (Bld) [Interp] MICROCYTOSIS PRESENT [facility] Morphology Walter (Bld) [Interp] ANISOCYTOSIS PRESENT [facility] Morphology Walter (Bld) [Interp] 1+ ACANTHOCYTES [facility] Platelet distribution width (Bld) [Ratio] 18.9 % High 11.8 - 14.4 % [facility] Platelet mean volume (Bld) [Entitic vol] [...] Low [facility] Absolute Maui # 1.33 High [facility] [...] results Abnormal [facility] Interpretation and review of laboratory results Abnormal [facility] Phosphorus, Inorg.on 022 Phosphorus, Inorg. 3.3 mg/dL Normal 2.5-4.5 [facility] Comment on above: Performed By: #### C DP, MELVIN, BMPX, IPF #### [employer] [address] [place] [address] Chief Librarian Music Department: Francisco J Fonseca MD Phosphorus, Inorg. 2.9 mg/dL Normal 2.5-4.5 [facility] Comment on above: Performed By: #### C DP #### [employer] [address] [place] [address] Chief Librarian Music Department: Francisco J Fonseca MD Phosphorus, Inorg. 3.5 mg/dL Normal 2.5-4.5 [facility] Comment on above: Performed By: #### C DP, MELVIN, BMPX, IPF #### [employer] [address] [place] [address] Chief Librarian Music Department: Francisco J Fonseca MD Phosphorus, Inorg. 3.1 mg/dL Normal 2.5-4.5 [facility] Comment on above: Performed By: #### C DP, MELVIN, BMPX, IPF #### [employer] [address] [place], [place] [id number] Chief Librarian Music Department: Francisco J Fonseca MD Phosphorus, Inorg. 2.5 mg/dL Normal 2.5-4.5 [facility] Comment on above: Performed By: #### C DP, MELVIN, BMPX, IPF #### [address] [id number] Chief Librarian Music Department: Francisco J Fonseca MD XR ABDOMEN FOR [...] Eulogio Winslow MD 01/02/22 Final result Normal [facility] AMYLASEon 01-02-2022 Amylase [Catalytic activity/Vol] 13 U/L Critically low 25-115 [facility] Comment on above: Performed By: #### L IPA, MARGA, LIVER, BMP #### [facility] [address] [address] [address] Kylee Bunch Basic Metabolic Profon 01-02 Glucose [Mass/Vol] 452 mg/dL Critically high 70-99 [facility] Comment on above: Performed By: #### C DP #### [address] [id number] Chief Librarian Music Department: Francisco J Fonseca MD (cont.) Normal [facility] Comment on above: Result Comment: Aver age GFR for 70 or more years old: 75 mL/min/1.73sq m Chronic Kidney Disease: <60 mL/min/1.73sq m Kidney failure: <15 mL/min/1.73sq m eGFR calculated using average adult body mass. Additional eGFR calculator available at: http://www.netprice.com.[employer]/multiple_crcl_2012.htm Performed By: #### C DP #### [address] [address] Chief Librarian Music Department: Francisco J Fonseca MD Anion gap [Moles/Vol] 12 mmol/L Normal 9-17 [facility] Comment on above: Performed By: #### C DP #### [address] [address] Chief Librarian Music Department: Francisco J Fonseca MD Calcium [Mass/Vol] 8.6 mg/dL Normal 8.6-10.4 [facility] Comment on above: Performed By: #### C DP #### [address] [address] Chief Librarian Music Department: Francisco J Fonseca MD Chloride [Moles/Vol] 96 mmol/L Low 98-107 [facility] Comment on above: Performed By: #### C DP #### [address] [address] Chief Librarian Music Department: Francisco J Fonseca MD CO2 [Moles/Vol] 22 mmol/L Normal 20-31 [facility] Comment on above: Performed By: #### C DP #### [address] [address] Chief Librarian Music Department: Francisco J Fonseca MD Creatinine [Mass/Vol] 0.81 mg/dL Normal 0.70-1.20 [facility] Comment on above: Performed By: #### C DP #### [address] [address] Chief Librarian Music Department: Francisco J Fonseca MD GFR, Amer >60 Normal >60 [facility] Comment on above: Performed By: #### C DP #### [address] [address] Chief Librarian Music Department: Francisco J Fonseca MD GFR,non Amer >60 Normal >60 [facility] Comment on above: Performed By: #### C DP #### [address] [address] Chief Librarian Music Department: Francisco J Fonseca MD Potassium [Moles/Vol] 4.1 mmol/L Normal 3.7-5.3 [facility] Comment on above: Performed By: #### C DP #### [address] [address] Chief Librarian Music Department: Francisco J Fonseca MD Sodium [Moles/Vol] 130 mmol/L Low 135-144 [facility] Comment on above: Performed By: #### C DP #### [address] [address] Chief Librarian Music Department: Francisco J Fonseca MD Urea nitrogen [Mass/Vol] 19 mg/dL Normal 8-23 [facility] Comment on above: Performed By: #### C DP #### [address] [address] Chief Librarian Music Department: Francisco J Fonseca MD CBC AUTO DIFFon 01-02-2022 BASO # 0.0 103/ul Normal 0.0-0.1 [facility] Comment on above: Performed By: #### C MP, LIPID #### [facility] [address] [place] [address] Dr. Kylee Bunch Basophils/100 WBC (Bld) 0.2 % Normal 0.2-2.0 [facility] Comment on above: Performed By: #### C MP, LIPID #### [facility] [address] [address] [address] Kylee Bunch EO # 0.1 103/ul Normal 0.0-0.7 [facility] Comment on above: Performed By: #### C MP, LIPID #### [facility] [address] [place] [address] Dr. Kylee Bunch Eosinophils/100 WBC (Bld) 0.5 % Critically low 0.9-7.0 [facility] Comment on above: Performed By: #### C MP, LIPID #### [facility] [address] [place] [address] Dr. Kylee Bunch Erythrocyte distribution width (RBC) [Ratio] 18.5 % Critically high 11.0-15.0 [facility] Comment on above: Performed By: #### C MP, LIPID #### [facility] [address] [place] [address] Dr. Kylee Bunch Hematocrit (Bld) [Volume fraction] 37.0 % Critically low 42.0-54.0 [facility] Comment on above: Performed By: #### C MP, LIPID #### [facility] [address] [place] [address] Dr. Kylee Bunch Hemoglobin (Bld) [Mass/Vol] 12.6 g/dL Critically low 14.0-18.0 [facility] Comment on above: Performed By: #### C MP, LIPID #### [facility] [address] [place] [address] Dr. Kylee Bunch IG # 0.02 10e3/ul Normal 0.00-0.03 [facility] Comment on above: Performed By: #### C MP, LIPID #### [facility] [address] [place] [address] Dr. Kylee Bunch IG % 0.2 % Normal 0.0-0.5 [facility] Comment on above: Performed By: #### C MP, LIPID #### [facility] [address] [place] [address] Dr. Kylee Bunch LYMPH # 1.2 103/ul Normal 1.2-3.8 [facility] Comment on above: Performed By: #### C MP, LIPID #### [facility] [address] [place] [address] Dr. Kylee Bunch Lymphocytes/100 WBC (Bld) 11.3 % Critically low 20.5-60.0 [facility] Comment on above: Performed By: #### C MP, LIPID #### [facility] [address] [place] [address] Dr. Kylee Bunch MANUAL DIFF REQ NO Normal [facility] Comment on above: Performed By: #### C MP, LIPID #### [facility] [address] [place] [address] Dr. Kylee Bunch MCH (RBC) [Entitic mass] 27.1 pg Normal 25.9-34.0 [facility] Comment on above: Performed By: #### C MP, LIPID #### [facility] [address] [place] [address] Dr. Kylee Bunch MCHC (RBC) [Mass/Vol] 34.1 g/dL Normal 29.9-35.2 [facility] Comment on above: Performed By: #### C MP, LIPID #### [facility] [address] [place] [address] Dr. Kylee Bunch MCV (RBC) [Entitic vol] 79.6 fL Critically low 80.0-94.0 [facility] Comment on above: Performed By: #### C MP, LIPID #### [facility] [address] [place] [address] Dr. Kylee Bunch MONO # 0.5 103/ul Normal 0.3-0.8 [facility] Comment on above: Performed By: #### C MP, LIPID #### [facility] [address] [place] [address] Dr. Kylee Bunch Monocytes/100 WBC (Bld) 4.5 % Normal 1.7-12.0 [facility] Comment on above: Performed By: #### C MP, LIPID #### [facility] [address] [place] [address] Dr. Kylee Bunch NEUT # 8.5 103/ul Critically high 1.4-6.5 [facility] Comment on above: Performed By: #### C MP, LIPID #### [facility] [address] [place] [address] Dr. Kylee Bunch Neutrophils/100 WBC (Bld) 83.3 % Critically high 43.0-75.0 [facility] Comment on above: Performed By: #### C MP, LIPID #### [facility] [address] [place], [place] [address] Dr. Kylee Bunch Platelet mean volume (Bld) [Entitic vol] 12.6 fL Normal 9.5-13.5 [facility] Comment on above: Performed By: #### C MP, LIPID #### [facility] [address] [address] [address] Kylee Bunch PLT 335 103/ul Normal 150-450 [facility] Comment on above: Performed By: #### C MP, LIPID #### [facility] [address] [address] [address] Kylee Bunch RBC 4.65 106/ul Critically low 4.70-6.10 [facility] Comment on above: Performed By: #### C MP, LIPID #### [facility] [address] [address] [address] Kylee Bunch WBC 10.2 103/ul Normal 4.0-11.0 [facility] Comment on above: Performed By: #### C MP, LIPID #### [facility] [address] [place], [place] [id number] Dr. Kylee Bunch CBC with Diffon 01-02-2022 Abs. Basophil 0.00 k/uL Normal 0.00-0.20 [facility] Comment on above: Performed By: #### C DP, MELVIN, BMPX, IPF #### [employer] [address] [place] [address] [id number] Chief Librarian Music Department: Francisco J Fonseca MD Abs.Imm.Granulocyte 0.00 k/uL Normal 0.00-0.30 [facility] Comment on above: Performed By: #### C DP, MELVIN, BMPX, IPF #### [facility] [address] [place] [address] Chief Librarian Music Department: Francisco J Fonseca MD Abs.Neutrophil (Seg) 19.47 k/uL High 1.50-8.10 [facility] Comment on above: Performed By: #### C DP, MELVIN, BMPX, IPF #### [place] [address] Chief Librarian Music Department: Francisco J Fonseca MD Basophils/100 WBC (Bld) 0 % Normal 0-2 [facility] Comment on above: Performed By: #### C DP, MELVIN, BMPX, IPF #### [place] [address] Chief Librarian Music Department: Francisco J Fonseca MD Eosinophils (Bld) [#/Vol] 0.00 10*3/uL Normal 0.00-0.44 [facility] Comment on above: Performed By: #### C DP, MELVIN, BMPX, IPF #### [place] [address] Chief Librarian Music Department: Francisco J Fonseca MD Eosinophils/100 WBC (Bld) 0 % Low 1-4 [facility] Comment on above: Performed By: #### C DP, MELVIN, BMPX, IPF #### [place] [address] Chief Librarian Music Department: Francisco J Fonseca MD Immature granulocytes/100 WBC (Bld) 0 % Normal 0 [facility] Comment on above: Performed By: #### C DP, MELVIN, BMPX, IPF #### [place] [address] Chief Librarian Music Department: Francisco J Fonseca MD Lymphocytes (Bld) [#/Vol] 0.41 10*3/uL Low 1.10-3.70 [facility] Comment on above: Performed By: #### C DP, MELVIN, BMPX, IPF #### [place] [address] Chief Librarian Music Department: Francisco J Fonseca MD Lymphocytes/100 WBC (Bld) 2 % Low 24-43 [facility] Comment on above: Performed By: #### C DP, MELVIN, BMPX, IPF #### [address] [address] Chief Librarian Music Department: Francisco J Fonseca MD Monocytes (Bld) [#/Vol] 0.62 10*3/uL Normal 0.10-1.20 [facility] Comment on above: Performed By: #### C DP, MELVIN, BMPX, IPF #### [place] [address] Chief Librarian Music Department: Francisco J Fonseca MD Monocytes/100 WBC (Bld) 3 % Normal 3-12 [facility] Comment on above: Performed By: #### C DP, MELVIN, BMPX, IPF #### [place] [address] Chief Librarian Music Department: Francisco J Fonseca MD Morphology Walter (Bld) [Interp] ANISOCYTOSIS PRESENT Normal [facility] Comment on above: Performed By: #### C DP, MELVIN, BMPX, IPF #### [place] [address] Chief Librarian Music Department: Francisco J Fonseca MD Neutrophil (Seg) 95 % High 36-65 [facility] Comment on above: Performed By: #### C DP, MELVIN, BMPX, IPF #### [place] [address] Chief Librarian Music Department: Francisco J Fonseca MD Erythrocyte distribution width (RBC) [Ratio] 18.3 % High 11.8-14.4 [facility] Comment on above: Performed By: #### C DP, MELVIN, BMPX, IPF #### [facility] [employer] [address] [place] [address] Chief Librarian Music Department: Francisco J Fonseca MD Hematocrit (Bld) [Volume fraction] 38.9 % Low 40.7-50.3 [facility] Comment on above: Performed By: #### C DP, MELVIN, BMPX, IPF #### [address] [address] Chief Librarian Music Department: Francisco J Fonseca MD Hemoglobin (Bld) [Mass/Vol] 12.9 g/dL Low 13.0-17.0 [facility] Comment on above: Performed By: #### C DP, MELVIN, BMPX, IPF #### [address] [address] Chief Librarian Music Department: Francisco J Fonseca MD MCH (RBC) [Entitic mass] 26.9 pg Normal 25.2-33.5 [facility] Comment on above: Performed By: #### C DP, MELVIN, BMPX, IPF #### [address] [address] Chief Librarian Music Department: Francisco J Fonseca MD MCHC (RBC) [Mass/Vol] 33.2 g/dL Normal 28.4-34.8 [facility] Comment on above: Performed By: #### C DP, MELVIN, BMPX, IPF #### [place] [address] Chief Librarian Music Department: Francisco J Fonseca MD MCV (RBC) [Entitic vol] 81.2 fL Low 82.6-102.9 [facility] Comment on above: Performed By: #### C DP, MELVIN, BMPX, IPF #### [place] [address] Chief Librarian Music Department: Francisco J Fonseca MD NRBC Automated 0.0 per 100 WBC Normal 0.0 [facility] Comment on above: Performed By: #### C DP, MELVIN, BMPX, IPF #### [place] [address] Chief Librarian Music Department: Francisco J Fonseca MD Platelet mean volume (Bld) [Entitic vol] 12.4 fL Normal 8.1-13.5 [facility] Comment on above: Performed By: #### C DP, MELVIN, BMPX, IPF #### [facility] [place] [address] Chief Librarian Music Department: Francisco J Fonseca MD Platelets (Bld) [#/Vol] 324 10*3/uL Normal 138-453 [facility] Comment on above: Performed By: #### C DP, MELVIN, BMPX, IPF #### [facility] [address] [place] [address] Chief Librarian Music Department: Francisco J Fonseca MD RBC (Bld) [#/Vol] 4.79 10*6/uL Normal 4.21-5.77 [facility] Comment on above: Performed By: #### C DP, MELVIN, BMPX, IPF #### [facility] [employer] [address] [place] [address] Chief Librarian Music Department: Francisco J Fonseca MD WBC (Bld) [#/Vol] 20.5 10*3/uL High 3.5-11.3 [facility] Comment on above: Performed By: #### C DP, MELVIN, BMPX, IPF #### [facility] [address] [place] [address] Chief Librarian Music Department: Francisco J Fonseca MD CT ABD/PELV W [...] identified. Background diffuse body wall edema with [id number] volume of abdominal and pelvic ascites noted. [...] ROLA HOLCOMB Date: 2022-01-02 09:27 Normal [facility] Covid-19 PCR (CVDTB)on 12-11 SARS-CoV-2 (COVID-19) RNA ANASTASIA+probe Ql (Unsp spec) Not detected Normal NOT DETECTED [facility] Comment on above: Result Comment: When [...] for this test is supported by the [employer] of [employer] and Human Service's declaration that [...] used). Performed By: #### C VDTB #### [facility] [address] [place] [address] [address] Kylee JACK URINE PROFILEon 2 Bilirubin Ql (U) Negative Normal NEGATIVE [facility] Comment on above: Performed By: #### C MP, LIPID #### [facility] [address] [place] [address] Dr. Kylee Bunch Clarity (U) CLEAR Normal CLEAR [facility] Comment on above: Performed By: #### C MP, LIPID #### [facility] [address] [place] [address] Dr. Kylee Bunch Color (U) LT. YELLOW Normal YELLOW [facility] Comment on above: Performed By: #### C MP, LIPID #### [facility] [address] [place] [address] Dr. Kylee Bunch ERUAHD A micrscopic examina tion will be performed if indicated. Normal [facility] Comment on above: Performed By: #### C MP, LIPID #### [facility] [address] [place] [address] Dr. Kylee Bunch Hemoglobin Ql (U) TRACE-INTACT Abnormal NEGATIVE [facility] Comment on above: Performed By: #### C MP, LIPID #### [facility] [address] [place] [address] Dr. Kylee Bunch Ketones Ql (U) 15 mg/dl Abnormal NEGATIVE [facility] Comment on above: Performed By: #### C MP, LIPID #### [facility] [address] [place] [address] Dr. Kylee Bunch LEUKOCYTES Negative Normal NEGATIVE [facility] Comment on above: Performed By: #### C MP, LIPID #### [facility] [address] [place] [address] Dr. Kylee Bunch Nitrite Ql (U) Negative Normal NEGATIVE [facility] Comment on above: Performed By: #### C MP, LIPID #### [facility] [address] [place] [address] Dr. Kylee Bunch pH (U) 5.5 [pH] Normal 5-9 [facility] Comment on above: Performed By: #### C MP, LIPID #### [facility] [address] [place] [address] Dr. Kylee Bunch SPEC GRAVITY 1.015 Normal 1.005-<=1. 025 [facility] Comment on above: Performed By: #### C MP, LIPID #### [facility] [address] [place] [address] Dr. Kylee Bunch UA PROTEIN Negative Normal NEGATIVE/ TRACE [facility] Comment on above: Performed By: #### C MP, LIPID #### [facility] [address] [address] [address] Kylee Bunch UR MICRO IND INDICATED Normal [facility] Comment on above: Performed By: #### C MP, LIPID #### [facility] [address] [place] [address] Dr. Kylee Bunch Urobilinogen Qn (U) 0.2 {Gemini'U}/dL Normal 0.2 - 1. 0 [facility] Comment on above: Performed By: #### C MP, LIPID #### [facility] [address] [place] [address] Dr. Kylee Bunch LIPASEon 01-02-2022 Lipase [Catalytic activity/Vol] 9.0 U/L Critically low 73.0-393.0 [facility] Comment on above: Performed By: #### L IPA, MARGA, LIVER, BMP #### [facility] [address] [place] [address] Dr. Kylee Bunch LIVER PROFILEon 01-02-2022 Albumin [Mass/Vol] 3.3 g/dL Critically low 3.4-5.0 [facility] Comment on above: Performed By: #### L IPA, MARGA, LIVER, BMP #### [facility] [address] [place] [address] Dr. Kylee Bunch Albumin/Globulin [Mass ratio] 0.9 {ratio} Normal [facility] Comment on above: Performed By: #### L IPA, MARGA, LIVER, BMP #### [facility] [address] [place] [address] Dr. Kylee Bunch ALP [Catalytic activity/Vol] 116 U/L Normal 46-116 [facility] Comment on above: Performed By: #### L IPA, MARGA, LIVER, BMP #### [facility] [address] [place] [address] Dr. Kylee Bunch ALT [Catalytic activity/Vol] 21 U/L Normal 16-63 [facility] Comment on above: Performed By: #### L IPA, MARGA, LIVER, BMP #### [facility] [address] [place] [address] Dr. Kylee Bunch AST [Catalytic activity/Vol] 24 U/L Normal 15-37 [facility] Comment on above: Performed By: #### L IPA, MARGA, LIVER, BMP #### [facility] [address] [place] [address] Dr. Kylee Bunch BILI, CONJUGATED 0.1 mg/dL Normal 0.0-0.2 [facility] Comment on above: Performed By: #### L IPA, MARGA, LIVER, BMP #### [facility] [address] [place] [address] Dr. Kylee Bunch Bilirubin [Mass/Vol] 0.6 mg/dL Normal 0.2-1.0 [facility] Comment on above: Performed By: #### L IPA, MARGA, LIVER, BMP #### [facility] [address] [place] [address] Dr. Kylee Bunch Globulin (S) [Mass/Vol] 3.6 g/dL Normal [facility] Comment on above: Performed By: #### L IPA, MARGA, LIVER, BMP #### [facility] [address] [place] [address] Dr. Kylee Bunch Protein [Mass/Vol] 6.9 g/dL Normal 6.4-8.2 [facility] Comment on above: Performed By: #### L IPA, MARGA, LIVER, BMP #### [facility] [address] [place] [address] Dr. Kylee Bunch Laboratory - Chemistry and C hemistry - challengeon 01-02-2022 Glucose [Mass/Vol] 223 mg/dL [facility] Comment on above: The ADA and AACC rec ommend providing the estimated average glucose result to permit better patient understanding of their HBA1c result. Glucose [Mass/Vol] 227 mg/dL High 75 - 110 mg/dL [facility] Glucose [Mass/Vol] 290 mg/dL High 75 - 110 mg/dL [facility] Glucose [Mass/Vol] 300 mg/dL High 75 - 110 mg/dL [facility] Glucose [Mass/Vol] 323 mg/dL High 75 - 110 mg/dL [facility] Anion gap [Moles/Vol] 12 mmol/L 9 - 17 mmol/L [facility] Calcium [Mass/Vol] 8.6 mg/dL 8.6 - 10. 4 mg/dL [facility] Chloride [Moles/Vol] 96 mmol/L Low 98 - 10 7 mmol/L [facility] CO2 [Moles/Vol] 22 mmol/L 20 - 31 mmol/L [facility] Creatinine [Mass/Vol] 0.81 mg/dL 0.70 - 1.20 mg/dL [facility] GFR/1.73 sq M.predicted MDRD (S/P/Bld) [Vol rate/Area] [facility] Comment on above: Average GFR for 70 o r more years old: 75 mL/min/1.73sq m Chronic Kidney Disease: <60 mL/min/1.73sq m Kidney failure: <15 mL/min/1.73sq m eGFR calculated using average adult body mass. Additional eGFR calculator available at: http://www.[employer]/multiple_crcl_2011.htm Glucose [Mass/Vol] 452 mg/dL Critically high 70 - 9 9 mg/dL [facility] Potassium [Moles/Vol] 4.1 mmol/L 3.7 - 5.3 mmol/L [facility] Sodium [Moles/Vol] 130 mmol/L Low 135 - 144 mmol/L [facility] Urea nitrogen (BldV) [Mass/Vol] 19 mg/dL 8 - 23 mg/dL [facility] Albumin [Mass/Vol] 3.6 g/dL 3.5 - 5.2 g/dL [facility] Albumin/Globulin [Mass ratio] 1.3 {ratio} [facility] ALP (Bld) [Catalytic activity/Vol] 100 U/L 40 - 129 U/L [facility] ALT [Catalytic activity/Vol] 15 U/L 5 - 41 U/L [facility] AST [Catalytic activity/Vol] 18 U/L <40 [facility] Bilirubin [Mass/Vol] 0.45 mg/dL 0.3 - 1 .2 mg/dL [facility] Bilirubin.indirect [Mass/Vol] 0.17 mg/dL <0.31 [facility] Free PSA/Total PSA [Mass fraction] 6.4 g/dL 6.4 - 8.3 g/dL [facility] Glucose [Mass/Vol] 433 mg/dL Critically high 75 - 1 10 mg/dL [facility] Comment on above: Critical Noted Laboratory - Coagulationon 0 01-02-2022 INR Coag (Bld) [Relative time] 1.2 {INR} [facility] Comment on above: Therapeutic Range: Moderate Anticoagulant Intensity: INR = 2.0-3.0 High Anticoagulant Intensity: INR = 2.5-3.5 PT Coag (PPP) [Time] 12.5 s High [facility] Laboratory - Hematology and Cell countson 01-02-2022 HbA1c (Bld) [Mass fraction] 9.4 % High 4.0 - 6.0 % [facility] Basophils (Bld) [#/Vol] 0.00 10*3/uL [facility] Basophils/100 WBC (Bld) 0 % 0 - 2 % [facility] Eosinophils/100 WBC (Bld) 0 % Low 1 - 4 % [facility] Hematocrit (Bld) [Volume fraction] 38.9 % Low 40.7 - 50.3 % [facility] Hemoglobin (Bld) [Mass/Vol] 12.9 g/dL Low 13.0 - 17.0 g/dL [facility] Immature granulocytes/100 WBC (Bld) 0 % 0 [facility] Lymphocytes/100 WBC (Bld) 2 % Low 24 - 43 % [facility] MCH (RBC) [Entitic mass] 26.9 pg 25.2 - 33.5 pg [facility] MCHC (RBC) [Mass/Vol] 33.2 g/dL 28.4 - 34.8 g/dL [facility] MCV (RBC) [Entitic vol] 81.2 fL Low 82.6 - 102.9 fL [facility] Monocytes/100 WBC (Bld) 3 % 3 - 12 % [facility] Morphology Walter (Bld) [Interp] ANISOCYTOSIS PRESENT [facility] Platelet distribution width (Bld) [Ratio] 18.3 % High 11.8 - 14.4 % [facility] Platelet mean volume (Bld) [Entitic vol] 12.4 fL 8.1 - 13.5 fL [facility] Platelets (Bld) [#/Vol] 324 10*3/uL [facility] RBC (Bld) [#/Vol] 4.79 10*6/uL 4.21 - 5.77 m/uL [facility] Segmented neutrophils/100 WBC (Bld) 95 % High 36 - 65 % [facility] WBC (Bld) [#/Vol] 20.5 10*3/uL High [facility] Lactate, Sepsison 01-02-2022 Lactic Acid,Sep Wbld 1.7 mmol/L Normal 0.5-1.9 [facility] Comment on above: Performed By: #### C DP, MELVIN, BMPX, IPF #### [facility] [place] [address] Chief Librarian Music Department: Francisco J Fonseca MD Liver Profileon 6 Albumin [Mass/Vol] 3.6 g/dL Normal 3.5-5.2 [facility] Comment on above: Performed By: #### C DP #### [facility] [address] [place], [place] [phone] Chief Librarian Music Department: Francisco J Fonseca MD Albumin/Glob Ratio 1.3 Normal 1.0-2.5 [facility] Comment on above: Performed By: #### C DP #### [facility] [address] [place] [address] Chief Librarian Music Department: Francisco J Fonseca MD Alkaline Phos 100 U/L Normal 40-129 [facility] Comment on above: Performed By: #### C DP #### [facility] [address] [place] [address] Chief Librarian Music Department: Francisco J Fonseca MD ALT [Catalytic activity/Vol] 15 U/L Normal 5-41 [facility] Comment on above: Performed By: #### C DP #### [address] [address] Chief Librarian Music Department: Francisco J Fonseca MD AST [Catalytic activity/Vol] 18 U/L Normal <40 [facility] Comment on above: Performed By: #### C DP #### [address] [address] Chief Librarian Music Department: Francisco J Fonseca MD Bilirubin [Mass/Vol] 0.45 mg/dL Normal 0.3-1.2 [facility] Comment on above: Performed By: #### C DP #### [address] [address] Chief Librarian Music Department: Francisco J Fonseca MD Bilirubin, Indirect 0.28 mg/dL Normal 0.00-1.00 [facility] Comment on above: Performed By: #### C DP #### [address] [address] Chief Librarian Music Department: Francisco J Fonseca MD Bilirubin.indirect [Mass/Vol] 0.17 mg/dL Normal <0.31 [facility] Comment on above: Performed By: #### C DP #### [address] [address] Chief Librarian Music Department: Francisco J Fonseca MD Protein [Mass/Vol] 6.4 g/dL Normal 6.4-8.3 [facility] Comment on above: Performed By: #### C DP #### [address] [address] Chief Librarian Music Department: Francisco J Fonseca MD Panel Informationon 01-02 Interpretation and review of laboratory results Abnormal [facility] Interpretation and review of laboratory results Abnormal [facility] Enteric tube needs t o be advanced 10 cm. [facility] RIS CONSOLIDATED EXAMINATION: ONE SUPINE [...] to be advanced at least 10 cm. [facility] RIS CONSOLIDATED Eulogio Winslow MD [...] tube needs to be advanced 10 cm. [facility] Work Phone: Interpretation and review of laboratory results Abnormal [facility] Interpretation and review of laboratory results Abnormal [facility] Radiology Study observation (narrative) [facility] Work Phone: Absolute Eos # 0.00 [facility] Absolute Immature Granulocyte 0.00 [facility] Absolute Lymph # 0.41 Low [facility] Absolute Maui # 0.62 [facility] Interpretation and review of laboratory results Abnormal [facility] NRBC Automated 0.0 0.0 per 100 WBC [facility] Segs Absolute 19.47 High [facility] Interpretation and review of laboratory results Abnormal [facility] Interpretation and review of laboratory results Abnormal [facility] Lactic Acid, Sepsis, Whole Blood 1.7 mmol/L 0.5 - 1.9 mmol/L [facility] GFR >60 >60 mL/min [facility] GFR Non- >60 >60 mL/min [facility] Interpretation and review of laboratory results Abnormal [facility] Bilirubin, Indirect 0.28 mg/dL 0.00 - 1.00 mg/dL [facility] Interpretation and review of laboratory results Abnormal [facility] No Panel InformationOrdered By: Eulogio Winslow on 01-02-2022 [facility] [employer] Work Phone: POINT OF CARE GLUCOSEon 12-11 Glucose [Mass/Vol] 408 mg/dL Critically high 74-106 [facility] Comment on above: Performed By: #### P OCGLUC #### [facility] [address] [place] [address] Dr. Kylee Bunch PROF CHEM 8 (BAS METB)on Anion gap [Moles/Vol] 16.4 mmol/L Normal [facility] Comment on above: Performed By: #### L IPA, MARGA, LIVER, BMP #### [facility] [address] [address] [address] Kylee Bunch Calcium [Mass/Vol] 8.8 mg/dL Normal 8.5-10.1 [facility] Comment on above: Performed By: #### L IPA, MARGA, LIVER, BMP #### [facility] [address] [address] [address] Kylee Bunch Chloride [Moles/Vol] 96 mmol/L Critically low 98-107 [facility] Comment on above: Performed By: #### L IPA, MARGA, LIVER, BMP #### [facility] [address] [address] [address] Kylee Bunch CO2 [Moles/Vol] 25.1 mmol/L Normal 21.0-32.0 [facility] Comment on above: Performed By: #### L IPA, MARGA, LIVER, BMP #### [facility] [address] [address] [address] Kylee Bunch Creatinine [Mass/Vol] 1.22 mg/dL Normal 0.70-1.30 [facility] Comment on above: Performed By: #### L IPA, MARGA, LIVER, BMP #### [facility] [address] [address] [address] Kylee Bunch EGFR-AF FAROESE >60 Normal >=60 [facility] Comment on above: Performed By: #### L IPA, MARGA, LIVER, BMP #### [facility] [address] [address] [address] Kylee Bunch EGFR-NON AF FAROESE 57 mL/min/1.73m2 Critically low >=60 [facility] Comment on above: Performed By: #### L IPA, MARGA, LIVER, BMP #### [facility] [address] [place] [address] Dr. Kylee Bunch Glucose [Mass/Vol] 579 mg/dL Critically high 74-106 T [facility] Comment on above: Result Comment: repe ated Performed By: #### L IPA, MARGA, LIVER, BMP #### [facility] [address] [place] [address] Dr. Kylee Bunch Potassium [Moles/Vol] 4.5 mmol/L Normal 3.5-5.1 [facility] Comment on above: Performed By: #### L IPA, MARGA, LIVER, BMP #### [facility] [address] [address] [address] Kylee Bunch Sodium [Moles/Vol] 133 mmol/L Critically low 136-145 Th [facility] Comment on above: Performed By: #### L IPA, MARGA, LIVER, BMP #### [facility] [address] [address] [address] Kylee Bunch Urea nitrogen [Mass/Vol] 19.0 mg/dL Critically high 7.0-18.0 [facility] Comment on above: Performed By: #### L IPA, MARGA, LIVER, BMP #### [facility] [address] [address] [address] Kylee Bunch Urea nitrogen/Creatinine [Mass ratio] 15.6 mg/mg Normal [facility] Comment on above: Performed By: #### L IPA, MARGA, LIVER, BMP #### [facility] [address] [address] [address] Kylee Bunch PTon 01-02-2022 INR Coag (PPP) [Relative time] 1.2 {INR} Normal [facility] Comment on above: Result Comment: Therapeutic Range: Moderate Anticoagulant Intensity: INR = 2.0-3.0 High Anticoagulant Intensity: INR = 2.5-3.5 Performed By: #### C DP, MELVIN, BMPX, IPF #### [address] [id number] Chief Librarian Music Department: Francisco J Fonseca MD PT Coag (PPP) [Time] 12.5 s High 9.1-12.3 [facility] Comment on above: Performed By: #### C DP, MELVIN, BMPX, IPF #### [address] [address] Chief Librarian Music Department: Francisco J Fonseca MD URINE MICROSCOPIC ONLYon BACTERIA NONE SEEN Normal NONE SEEN [facility] Comment on above: Performed By: #### C MP, LIPID #### [facility] [address] [place] [address] Dr. Kylee Bunch Bacteria identified Cx Nom (U) NOT INDICATED Normal [facility] Comment on above: Performed By: #### C MP, LIPID #### [facility] [address] [place] [address] Dr. Kylee Bunch CAST NONE SEEN Normal NONE SEEN [facility] Comment on above: Performed By: #### C MP, LIPID #### [facility] [address] [place] [address] Dr. Kylee Bunch Crystals LM Nom (Urine sed) NONE SEEN Normal NONE SEEN [facility] Comment on above: Performed By: #### C MP, LIPID #### [facility] [address] [address] [address] Kylee Bunch Epithelial cells LM Ql (Urine sed) RARE Normal NONE SEEN /RARE [facility] Comment on above: Performed By: #### C MP, LIPID #### [facility] [address] [address] [address] Kylee Bunch MUCOUS NONE SEEN Normal NONE SEEN [facility] Comment on above: Performed By: #### C MP, LIPID #### [facility] [address] [address] [address] Kylee Bunch RBC 0-2 Normal 0-2 [facility] Comment on above: Performed By: #### C MP, LIPID #### [facility] [address] [place] [address] Dr. Kylee Bunch WBC NONE SEEN Normal NONE SEEN [facility] Comment on above: Performed By: #### C MP, LIPID #### [facility] [address] [place] [address] Dr. Kylee Bunch Reminderson 06-21-2019 Reminders - [...] going to have another colonoscopy mlc Normal [facility] HOSPon 06-23-2018 HOSP Patient Update (GENSMN) ASHWINI VICKERS ([id number]) 1935 MDate Time Provider Sxuzxltzbb25/13/18 MARIE JULIAN During your visit today, we recorded the following information about you:Allergies As of Date: 06/23/2018(No Known Allergies)Date Reviewed: 06/14/2018Reviewed by: Marie Julian - Fully AssessedReason for Visit: CURE 08/08/18 [Other]Primary Visit Diagnosis:Preoperative examination [Z01.818]Order(s):CONSULT TO [facility] [9034326] Order #: [id number]: 1 TYPE + SCREEN,30 DAY [SKUSTH42] Order #: [id number] FUTURE CONFIRM BLOOD TYPE [SQCONABO] Order #: [id number] FUTURE CBC + DIFF [SQCBCDIF] Order #: [id number] FUTURE COMP METABOLIC PANEL [SQCMP] Order #: [id number] FUTURE XR CHEST 2V FRONTAL/LAT [6425208] Order #: [id number] FUTURE ECG COMPLETE W INTERPRETATION [ECG01] Order #: [id number] FUTURE REFER FOR ADMIT INTERVIEW [9222839] Order #: [id number] CONSULT TO GERIATRICS [9012] Order #: [id number]: 1 CONSULT TO PATIENT EDUCATION [[id number]] Order #: [id number]: 1 NITISH WHAT TO EXPECT DURING YOUR HOSPITAL STAY [1166107] Order #: [id number]: 1 NITISH PT ED GENERAL SURG [9925779] Order #: [id number]: 1 NITISH PT ED MISC [4185149] Order #: [id number]: 1 SURGICAL REQUEST - ELECTIVE [9941608] Order #: [id number]: 1Prescriptions as of 06/23/2018 Sig: ASPIRIN 81 MG TABLET,DELAYED * Take 81 mg by mouth once parul* CETIRIZINE 10 MG TABLET Take 10 mg by mouth once parul* CHOLECALCIFEROL (VITAMIN D3) * Take 2,000 Units by mouth onc* CENTRUM SILVER ORAL Take by mouth once daily. PROBIOTIC-10 ORAL Take by mouth once daily. VKOLVH-QNPDYEDS-YCIOOBW 24,00* Take 2 capsules by mouth thre* LUTEIN-ZEAXANTHIN 25 MG-5 MG * Take by mouth once daily.Problem List As Of Date 06/23/2018 Noted Resolved IPMN (intraductal papillary mucinous neoplasm) *INVALID FOR* More...Follow-up and Disposition History RecordedEncounter Number: [id number] Status:Closed by BREANA FANG on 06/23/18 [facility] CNOVon 06-14-2018 CNOV Office Visit (GENMigdalia) ISIASHWINI PORRAS ([id number]) 1935 MDate Time Provider Anhufkoypz08/4/18 9:30 AM MARIE JULIAN During your visit today, we recorded the following information about you: Temperature Pulse Blood pressure Weight 98.4 degrees 53/minute 182/84 70 kg Height 1.778 mMisty Dalzellyuli Aragon 06/14/2018 9:25 AM SignedWhat is the reason for your visit today? CONSULTWho is your referring physician? Dr. Castro.MarieAre you having poor oral intake? NOHave you had unintentional weight loss of 15 lbs/7 Kg in the last 3-6 months? NOBowels: regularWound: clean AND dryTemperature: NoDrains: Steven Montes 06/14/2018 1:32 PM SignedPancreatic Cyst HANDP [id number][facility]1935Thi s consult was requested by Marie Castro, for evaluation ofpancreatic cyst(s) My final recommendations will be communicated to [facility] health care provider by way of the shared medical record or [facility].HPIAshwini Vickers is a 83 year [...] cells. Paucicellular specimen.Serum LabsNo results found for: EELSD91-5 (U/mL)Date Value04/19/2018 61 No results found for: [...] and their questions were answered to theirsatisfaction. Ashiwni Vickers will follow up with their other providers asscheduled for all other medical conditions and he would like to pursue surgicalintervention in [place]. We have provided [facility] and recommend that the procedure should be [...] all of their questionsSIGNATURE:Andrei Julian MDHPB surgeryPager: [phone]: Referring Provider: MARIE CASTRO [[id number]]Allergies As of Date: 06/14/2018(No Known Allergies)Date Reviewed: 06/14/2018Reviewed by: Marie Julian - Fully AssessedPrimary Visit Diagnosis:IPMN (intraductal papillary mucinous neoplasm) [D49.0]Prescriptions as of 06/14/2018 Sig: [id number]-BXJDUSG 24,00* Take 2 capsules by mouth thre* [...] regularWound: clean AND dryTemperature: NoDrains: NoEncounter Number: [id number] Status:Closed by MARIE JULIAN MD on 06/14/18 Normal [facility] HISTORY PHYSICALon 8 HISTORY PHYSICAL HNO ID: [id number] thor: Marie Morris: (none)Author Type: PhysicianType: HANDPFiled: [...] answering all of their questionsSIGNATURE:PAM [place] surgeryPager: [phone]: Normal [facility] HISTORY PHYSICAL HNO ID: [id number] thor: Josie Castellon (Res) GamaleldinService: (none)Author Type: ResidentType: HANDPFiled: 06/14/2018 1:32 PMNote Text:Pancreatic Cyst HANDP InitialSaeliezer [id number] s consult was requested by Marie Castro, for evaluation ofpancreatic cyst(s) My final recommendations will be communicated to [facility] health care provider by way of the [...] cells. Paucicellular specimen.Serum LabsNo results found for: YIRSC79-2 (U/mL)Date Value04/19/2018 61 No results found for: [...] would like to pursue surgical intervention in [place].We have provided him with the name of an HPB surgeon at [facility] that the procedure should be done by an HPB surgeon. Seen with Josie Méndez MD10:21 AM06/14/2018 Normal [facility] ANES Wilma 04-27-2018 ANES POST HNO ID: [id number] thor: Guille Manning: (none)Author Type: AnesthesiologistType: Anesthesia [...] 27, 2018 : 9:48 AM PAGER/CONTACT #: [phone] Normal [facility] Amylase,Body Fluidon 018 Amylase,Body Fluid 27447 U/L Critically abnormal See Comment [facility] Comment on above: Result Comment: [...] CLSI document C49-A. BRAD Alarcon: Clinical LaboratoryStandards [place]; 2007.3. Denice CAI, Chantale REAL, Tyson DJ. Use of cyst fluid CEA,CA19-9, and amylase for evaluation of pancreatic lesions. ClinicalBiochemistry. 2009;42:8570-5888.This test was developed and its performance characteristicsdetermined by [facility] ([facility]).It has not been cleared or approved by the FDA. [facility] is regulatedunder [place] as qualified to perform high-complexity testing.This test is used for clinical purposes. It should not be regarded asinvestigational or for research. Performed By: #### P T, CBCDIF, HFP, TSH, CA199 ####[address] [place], [place] [phone] Fluid Type Fluid-other Normal [facility] Comment on above: Result Comment: PANC REATIC CYST FLUID Performed By: #### P T, CBCDIF, HFP, TSH, CA199 ####[facility] [place], [place] [phone] CEA, Fluidon 04-27-2018 CEA, Fluid 24.7 ng/mL Normal [facility] Comment on above: Result Comment: (NOT E)INTERPRETIVE INFORMATION: Carcinoembryonic Antigen, FluidThe Jacques CEA electrochemiluminescent immunoassay was used.Results obtained with different assay methods or kits cannot beused interchangeably. The CEA assay value, regardless of level,should not be interpreted as evidence for the presence or absenceof malignant disease.For information on body fluid reference ranges and/or interpretiveguidance visit http://[employer]/bodyfluids/Test developed and characteristics determined by [facility]. See Compliance Statement B: [employer]/CSPerformed by [employer],[address] [place] [address] zux.[employer], Oswaldo Tellez MD, Lab. Director Performed By: #### P T, CBCDIF, HFP, TSH, CA199 ####[facility] [address], [place] [phone] Source, Fluid Fluid-other Normal [facility] Comment on above: Result Comment: PANC REATIC CYST FLUID Performed By: #### P T, CBCDIF, HFP, TSH, CA199 ####[facility] [place], [place] [phone] Glucose, Body Fluidon 2017 Glucose, Body Fluid <2 Critically abnormal See Comment [facility] Comment on above: Result Comment: Resu lt rechecked. Performed By: #### P T, CBCDIF, HFP, TSH, CA199 ####[facility] [phone] CA 19-9on 04-19-2018 CA 19-9 61 U/mL High <36 [facility] Comment on above: Result Comment: Test analyzed by the [employer] DxI method. Performed By: #### P T, CBCDIF, HFP, TSH, CA199 ####[facility] [phone] CBC and Differentialon 04-19 Abs Baso <0.03 Normal <0.11 [facility] Comment on above: Performed By: #### P T, CBCDIF, HFP, TSH, CA199 ####[facility] [place], [place] [phone] Abs Maui 0.52 k/uL Normal <0.87 [facility] Comment on above: Performed By: #### P T, CBCDIF, HFP, TSH, CA199 ####[facility] [place], [place] [phone] Abs Neut 3.73 k/uL Normal 1.45-7.50 [facility] Comment on above: Performed By: #### P T, CBCDIF, HFP, TSH, CA199 ####[address], [place] [phone] Absolute nRBC <0.01 Normal <0.01 [facility] Comment on above: Performed By: #### P T, CBCDIF, HFP, TSH, CA199 ####[facility] [phone] Basophils/100 WBC Auto (Bld) 0.3 % Normal [facility] Comment on above: Performed By: #### P T, CBCDIF, HFP, TSH, CA199 ####[address] [address] [phone] DTYPE Auto Diff Normal [facility] Comment on above: Performed By: #### P T, CBCDIF, HFP, TSH, CA199 ####[address] [address] [address] [phone] Eosinophils Auto #/vol (Bld) 0.09 10*3/uL Normal <0.46 [facility] Comment on above: Performed By: #### P T, CBCDIF, HFP, TSH, CA199 ####[facility] [phone] Eosinophils/100 WBC Auto (Bld) 1.5 % Normal [facility] Comment on above: Performed By: #### P T, CBCDIF, HFP, TSH, CA199 ####[facility], [place] [phone] Erythrocyte distribution width Auto Ratio (RBC) 15.0 % Normal 11.5-15.0 [facility] Comment on above: Performed By: #### P T, CBCDIF, HFP, TSH, CA199 ####[facility] [place], [place] [phone] Hematocrit Auto Volume Fraction (Bld) 44.6 % Normal 39.0-51.0 [facility] Comment on above: Performed By: #### P T, CBCDIF, HFP, TSH, CA199 ####[facility] [phone] Hemoglobin mass conc (Bld) 13.7 g/dL Normal 13.0-17.0 [facility] Comment on above: Performed By: #### P T, CBCDIF, HFP, TSH, CA199 ####[address] [address] [place], [place] [phone] Lymphocytes Auto #/vol (Bld) 1.79 10*3/uL Normal 1.00-4.00 [facility] Comment on above: Performed By: #### P T, CBCDIF, HFP, TSH, CA199 ####[address] [place] [address] [address] [place], [place] [phone] Lymphocytes/100 WBC Auto (Bld) 29.0 % Normal [facility] Comment on above: Performed By: #### P T, CBCDIF, HFP, TSH, CA199 ####[address] [place] [address] [address] [place], [place] [phone] MCH Auto Entitic mass (RBC) 26.7 pG Normal 26.0-34.0 [facility] Comment on above: Performed By: #### P T, CBCDIF, HFP, TSH, CA199 ####[address] [place] [address] [address] [place], [place] [phone] MCHC Auto mass conc (RBC) 30.7 g/dL Normal 30.5-36.0 [facility] Comment on above: Performed By: #### P T, CBCDIF, HFP, TSH, CA199 ####[address] [place] [address] [address] [place], [place] [phone] MCV Auto Entitic volume (RBC) 86.8 fL Normal 80.0-100.0 [facility] Comment on above: Performed By: #### P T, CBCDIF, HFP, TSH, CA199 ####[facility] [place], [place] [phone] Monocytes/100 WBC Auto (Bld) 8.4 % Normal [facility] Comment on above: Performed By: #### P T, CBCDIF, HFP, TSH, CA199 ####[facility] [place], [place] [phone] Neutrophils/100 WBC Auto (Bld) 60.8 % Normal [facility] Comment on above: Performed By: #### P T, CBCDIF, HFP, TSH, CA199 ####[facility] [place], [place] [phone] NRBCs 0.0 /100 WBC Normal 0 [facility] Comment on above: Performed By: #### P T, CBCDIF, HFP, TSH, CA199 ####[facility] [place], [place] [phone] Platelet mean volume Auto Entitic volume (Bld) 10.6 fL Normal 9.0-12.7 [facility] Comment on above: Performed By: #### P T, CBCDIF, HFP, TSH, CA199 ####[facility] [place], [place] [phone] Platelets Auto #/vol (Bld) 130 10*3/uL Low 150-400 [facility] Comment on above: Result Comment: Resu lt checked and verifiedNo clot detected. Performed By: #### P T, CBCDIF, HFP, TSH, CA199 ####[facility] [place], [place] [phone] RBC Auto #/vol (Bld) 5.14 10*6/uL Normal 4.20-6.00 [facility] Comment on above: Performed By: #### P T, CBCDIF, HFP, TSH, CA199 ####[facility] [place], [place] [phone] WBC Auto #/vol (Bld) 6.17 10*3/uL Normal 3.70-11.00 [facility] Comment on above: Performed By: #### P T, CBCDIF, HFP, TSH, CA199 ####[facility] [place], [place] [phone] CNOVon 04-19-2018 CNOV Office Visit (GASTMN) ASHWINI VICKERS ([id number]) [address] [facility] Time Provider Mqjhbazlbt29/9/18 7:40 AM MARINO CASTILLO GASTMN During your visit today, we recorded the following information about you: Temperature Pulse Blood pressure Weight 97.7 degrees 44/minute 150/68 65.7 kg Height 1.803 NEalva Castillo MD 04/19/2018 10:06 AM SignedNew Patient/ConsultREASON FOR VISITSamclive Vickers is a 83 year old male who is scheduled for a consult at [facility] of Marie Castro MD.PCPRobert Tru Castro MD.[address] [place] [id number] COMPLAINTReferral for Pancreatic Cancer screeningWeight lossMy final [...] Questions answered.Marino Castillo MDUp Health Systemober 201710:36 AMTykatharina Castillo MD 04/19/2018 8:32 AM SignedExpect a call to schedule your endoscopy appointment today or tomorrow morning.If you haven't heard, call me. 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 My office number is [phone] Number: [id number] Status:Closed by MARINO CASTILLO MD on 04/19/18 [facility] 04-19-2018 HOSP Patient:Julio Vickers lMRN: Height:5' [...] received? No need to getanother copy from [employer].Thanks,Rl Bonilla, HEEL ROOM SUPERVISOR, HEEL ROOM SUPERVISOR 04/19/2018 12:26 PM SignedCalled pt to let him know the cd was received and no need to get a copy.Progress Notes (KIMBERLEE MAIN A30):Marino Castillo MD 04/19/2018 10:06 AM SignedNew Patient/ConsultREASON FOR VISITSkary Vickers is a 83 year old male who is scheduled for a consult at [facility] of Marie Castro MD.PCPRobert Tru Castro MD.[address] COMPLAINTReferral for Pancreatic Cancer screeningWeight lossMy [...] heard, call me. My office number is [phone] Normal [facility] Hepatic Functn Panelon 04-19 Albumin mass conc 4.3 g/dL Normal 3.9-4.9 [facility] Comment on above: Performed By: #### P T, CBCDIF, HFP, TSH, CA199 ####[facility] [address] [place] [address], [place] [phone] ALP enzyme act/vol 83 U/L Normal 38-113 [facility] Comment on above: Performed By: #### P T, CBCDIF, HFP, TSH, CA199 ####[facility] [address] [place] [address] [place], [place] [phone] ALT enzyme act/vol 12 U/L Normal 10-54 [facility] Comment on above: Performed By: #### P T, CBCDIF, HFP, TSH, CA199 ####[facility] [address] [place] [address], [place] [phone] AST enzyme act/vol 18 U/L Normal 14-40 [facility] Comment on above: Performed By: #### P T, CBCDIF, HFP, TSH, CA199 ####[facility] [address] [place] [address] [place], [place] [phone] Bilirubin mass conc 0.3 mg/dL Normal 0.2-1.3 [facility] Comment on above: Performed By: #### P T, CBCDIF, HFP, TSH, CA199 ####[place] [address] [place], [place] [phone] Bilirubin,Conjugated <0.2 Normal <0.2 [facility] Comment on above: Performed By: #### P T, CBCDIF, HFP, TSH, CA199 ####[place] [address] [place], [place] [phone] Protein mass conc 6.9 g/dL Normal 6.3-8.0 [facility] Comment on above: Performed By: #### P T, CBCDIF, HFP, TSH, CA199 ####[address] [phone] Protimeon 04-19-2018 INR Coag RelTime (Bld) 1.0 {INR} Normal 0.9-1.3 [facility] Comment on above: Result Comment: Robina min K Antagonist (VKA) Therapeutic Range: INR 2 to 3 (Target INR of 2.5)Note: For patients treated with VKA drugs, such as warfarin, the [place] [employer] 2012 Guideline recommends [...] al. Chest 2012, 141:7S-47SJames PRINCE et al. [facility] 2017, 70: 252-289 Performed By: #### P T, CBCDIF, HFP, TSH, CA199 ####[place] [address] [place], [place] [phone] PT Sec 10.9 sec Normal 9.7-13.0 [facility] Comment on above: Performed By: #### P T, CBCDIF, HFP, TSH, CA199 ####[facility] [address] [place], [place] [phone] TSHon 04-19-2018 Thyrotropin Qn 0.874 uU/mL Normal 0.400-5.50 0 [facility] Comment on above: Performed By: #### P T, CBCDIF, HFP, TSH, CA199 ####[facility] [place], [place] [phone] PROGRESSon 04-11-2018 Protein mass conc HNO ID: [id number] thor: Marino Cummings: (none)Author Type: PhysicianType: Progress NotesFiled: 04/19/2018 10:06 AMNote Text:New Patient/ConsultREASON FOR Jas Vickers is a 83 year old male who is scheduled for a consult at [facility] of Marie Castro MD.PCPRobert Tru Castro MD.[facility] [address] COMPLAINTReferral for Pancreatic Cancer screeningWeight lossMy final recommendations will be communicated back to the requestingphysician by the way of the shared medical record, fax, or via US Mail.HISTORY OF PRESENT ILLNESSThis patient has presented with several months of unexplained weight udsa09-87 pounds. There are no gastrointestinal symptoms to [...] plan. Questionsanswered.Marino Castillo MDOctober 201710:36 AM Normal [facility] CT OUTSIDE CD DICOM IMPORT - NBNRon 03-29-2018 CT OUTSIDE CD DICOM IMPORT -NBNR Images were obtained outside of [facility] [id number] Normal [facility] CT-CT abdomen pelvis wo/w co n IMPORTon 03-29-2018 CT-CT abdomen pelvis wo/w con IMPORT Images were obtained outside of [facility] [id number] Normal [facility] Vital Signs Date Time Vital Sign Value Performing Clinician Facility 08-16-2023 14:07-0500 Body height 177.8 cm Sammy AYALA Work Phone: [facility] 08-16-2023 14:07-0500 Body mass index (BMI) [Ratio] 20.09 kg/m2 Sammy Wolff APRN-KALANI Work Phone: [facility] 08-16-2023 14:07-0500 Body weight 63.5 kg Sammy Wolff CASEWORKER-SKIN TANNER Work Phone: [facility] 08-16-2023 14:07-0500 Diastolic blood pressure 80 mm[Hg] Sammy Wolff CASEWORKER-SKIN TANNER Work Phone: [facility] 08-16-2023 14:07-0500 Heart rate 72 /min Sammy Wolff CASEWORKER-SKIN TANNER Work Phone: [facility] 08-16-2023 14:07-0500 Systolic blood pressure 134 mm[Hg] Sammy Wolff CASEWORKER-SKIN TANNER Work Phone: [facility] 07-16-2023 22:45-0500 Diastolic blood pressure 95 mm[Hg] DO Marie Yunk Work Phone: [facility] 07-16-2023 22:45-0500 Heart rate 69 /min DO Marie Jamak Work Phone: [facility] 07-16-2023 22:45-0500 Respiratory rate 16 /min DO Marie Jamak Work Phone: [facility] 07-16-2023 22:45-0500 SaO2% (BldA) [Mass fraction] 98 % DO Marie Xavichak Work Phone: [facility] 07-16-2023 22:45-0500 Systolic blood pressure 164 mm[Hg] DO Marie Xavichak Work Phone: [facility] 07-16-2023 13:24-0500 Body height 177.8 cm DO Marie Xavichak Work Phone: [facility] 07-16-2023 13:24-0500 Body temperature 96.7 [degF] DO Marie Xavichak Work Phone: [facility] 07-16-2023 13:24-0500 Body weight 63.95 kg DO Marie Jamak Work Phone: [facility] 05-25-2023 13:41-0500 Diastolic blood pressure 88 mm[Hg] Adrián Davis DO Work Phone: [facility] 05-25-2023 13:41-0500 Systolic blood pressure 136 mm[Hg] Adrián Davis DO Work Phone: [facility] 05-25-2023 13:37-0500 Body height 177.8 cm Adrián Davis DO Work Phone: [facility] 05-25-2023 13:37-0500 Body mass index (BMI) [Ratio] 19.51 kg/m2 Adrián Davis DO Work Phone: [facility] 05-25-2023 13:37-0500 Body weight 61.69 kg Adrián Davis DO Work Phone: [facility] 05-25-2023 13:37-0500 Heart rate 70 /min Adrián Davis DO Work Phone: [facility] 05-08-2023 10:33-0400 Diastolic blood pressure 85 mm[Hg] DO Marie Vaschak Work Phone: [facility] 05-08-2023 10:33-0400 Heart rate 97 /min DO Marie Xavichak Work Phone: [facility] 05-08-2023 10:33-0400 Respiratory rate 18 /min DO Marie Xavichak Work Phone: [facility] 05-08-2023 10:33-0400 Systolic blood pressure 156 mm[Hg] DO Marie Vaschak Work Phone: [facility] 05-08-2023 05:00-0400 Body temperature 98.8 [degF] DO Marie Vaschak Work Phone: [facility] 05-08-2023 05:00-0400 SaO2% (BldA) [Mass fraction] 97 % DO Marie Vaschak Work Phone: [facility] 05-04-2023 11:00-0400 Body height 177.8 cm DO Marie Vaschak Work Phone: [facility] 05-03-2023 16:44-0400 Body weight 66.4 kg DO Marie Jamak Work Phone: [facility] 05-03-2023 11:48-0400 Body temperature 98.1 [degF] DO Marie Jamak Work Phone: [facility] 05-03-2023 11:48-0400 Diastolic blood pressure 77 mm[Hg] DO Marie Jamak Work Phone: [facility] 05-03-2023 11:48-0400 Heart rate 55 /min DO Marie Yunk Work Phone: [facility] 05-03-2023 11:48-0400 Respiratory rate 18 /min DO Marie Castro Work Phone: [facility] 05-03-2023 11:48-0400 SaO2% (BldA) [Mass fraction] 99 % DO Marie Matthew Work Phone: [facility] 05-03-2023 11:48-0400 Systolic blood pressure 146 mm[Hg] DO Marie Castro Work Phone: [facility] 05-03-2023 05:40-0400 Body weight 67.6 kg DO Marie Castro Work Phone: [facility] 05-02-2023 00:00-0400 Inhaled oxygen flow rate 6 L/min DO Marie Matthew Work Phone: [facility] 04-30-2023 15:31-0400 Body mass index (BMI) [Ratio] 18.8 kg/m2 DO Marie Jamak Work Phone: [facility] 04-30-2023 15:25-0400 Body height 180.34 cm DO Marie Jamak Work Phone: [facility] 04-28-2023 16:32-0400 Heart rate 63 /min DO Marie Xavichak Work Phone: [facility] 04-28-2023 16:24-0400 Diastolic blood pressure 83 mm[Hg] DO Marie Castro Work Phone: [facility] 04-28-2023 16:24-0400 Respiratory rate 18 /min DO Marie Castro Work Phone: [facility] 04-28-2023 16:24-0400 SaO2% (BldA) [Mass fraction] 98 % DO Marie Castro Work Phone: [facility] 04-28-2023 16:24-0400 Systolic blood pressure 167 mm[Hg] DO Marie Castro Work Phone: [facility] 04-28-2023 13:34-0400 Body temperature 97.2 [degF] DO Marie Castro Work Phone: [facility] 04-28-2023 12:19-0400 Body height 180.34 cm DO Marie Castro Work Phone: [facility] 04-28-2023 12:19-0400 Body weight 64.41 kg DO Marie Castro Work Phone: [facility] 01-07-2022 09:35-0400 Diastolic blood pressure 95 mm[Hg] Gray Ross MD Work Phone: [facility] [employer] 01-07-2022 09:35-0400 Systolic blood pressure 160 mm[Hg] Gray Ross MD Work Phone: [facility] 01-07-2022 07:46-0400 Body temperature 97.81 [degF] Gray Ross MD Work Phone: [facility] 01-07-2022 07:46-0400 Heart rate 64 /min Gray Ross MD Work Phone: [facility] 01-07-2022 07:46-0400 Respiratory rate 15 /min Gray Ross MD Work Phone: [facility] 01-07-2022 07:46-0400 SaO2% (BldA) [Mass fraction] 98 % Gray Ross MD Work Phone: [facility] 01-03-2022 04:00-0400 Body height 177.8 cm Gray Ross MD Work Phone: [facility] 01-03-2022 04:00-0400 Body mass index (BMI) [Ratio] 20.81 kg/m2 Gray Ross MD Work Phone: [facility] 01-03-2022 04:00-0400 Body weight 65.8 kg Gray Ross MD Work Phone: [facility] 04-27-2018 10:48-0400 Body mass index (BMI) [Ratio] MARINO CASTILLO [facility] Encounters Encounter Date Encounter Type Care Provider Facility Start: 08-16-2023 End: 08-16-2023 ambulatory SAMMY Skinner WOLFF [facility] 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 Other Start: 08-16-2023 End: 08-16-2023 Office outpatient visit 15 minutes Sammy Skinner Wolff CASEWORKER-SKIN TANNER Work Phone: [facility] Comment on above: Cardiomyopathy, isch emic (Primary Dx); ASHD (arteriosclerotic heart disease); BMI 20.0-20.9, adult; Orthopnea Start: 08-16-2023 Telephone encounter Anat JENKINS [facility] Start: 07-27-2023 End: 07-27-2023 ambulatory Marie Castro Facility:[facility] Start: 07-27-2023 End: 07-27-2023 ambulatory DO Marie Xavijorge Work Phone: [facility] Work Phone: Start: 07-27-2023 End: 07-27-2023 Patient encounter procedure DO Marie Xavijorge Work Phone: [facility] Start: 07-16-2023 End: 07-17-2023 ambulatory Federico Súal Davis Facility:[facility] Start: 07-16-2023 End: 07-16-2023 Admission to same day surgery center DO Marie Castro Work Phone: [facility]-Accounts Payable Representative Work Phone: Start: 07-16-2023 End: 07-16-2023 ambulatory DO Marie Castro Work Phone: [facility] Work Phone: Start: 07-01-2023 ambulatory None Provider Facility: [facility] Start: 06-29-2023 ambulatory None Provider Facility: [facility] Start: 06-23-2023 End: 06-23-2023 ambulatory [facility] Ambulatory Start: 06-22-2023 End: 06-22-2023 ambulatory Ashwini Conrad Other [employer] Other Start: 06-22-2023 Telephone encounter [facility] Start: 06-11-2023 End: 06-11-2023 ambulatory Ashwini Conrad Facility:[facility] Start: 06-11-2023 End: 06-11-2023 ambulatory DO Marie Castro Work Phone: [facility] Work Phone: Start: 06-11-2023 End: 06-11-2023 Patient encounter procedure DO Marie Castro Work Phone: [facility] Start: 06-02-2023 End: 06-09-2023 ambulatory UNKNOWN PROVIDER Facility:[facility] Start: 05-26-2023 Telephone encounter [facility] Start: 05-26-2023 End: 05-27-2023 ambulatory MARIE CASTRO [facility] Work Phone: Start: 05-26-2023 End: 05-26-2023 Patient encounter procedure DO Marie Castro Work Phone: [facility] Start: 05-25-2023 End: 05-25-2023 ambulatory [facility] Ambulatory Start: 05-25-2023 End: 05-25-2023 Office consultation new/estab patient 60 min Adrián Davis DO Work Phone: [facility] Comment on above: NSTEMI (non-ST eleva robert myocardial infarction) ([facility]/HCC) (Primary Dx); Abnormal stress test; ASHD (arteriosclerotic heart disease); Essential hypertension; Diabetes mellitus type II, non insulin dependent (CMS/[facility]); Closed fracture of right hip, initial encounter ([facility]) Start: 05-21-2023 Postop follow up vis it related to original px [facility] Start: 05-21-2023 End: 05-21-2023 ambulatory Ashwini Conrad [facility] 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 Other Start: 05-21-2023 End: 05-21-2023 Patient encounter procedure DO Marie Castro Work Phone: [facility] Start: 05-03-2023 End: 05-08-2023 Evaluation and management of inpatient Fredi Medrano Facility:[facility] Start: 05-03-2023 End: 05-08-2023 Evaluation and management of inpatient DO Marie Castro Work Phone: [facility] Work Phone: Start: 04-28-2023 End: 05-03-2023 Evaluation and management of inpatient Humberto Diaz Facility:[facility] Start: 04-28-2023 End: 05-03-2023 Evaluation and management of inpatient DO Marie Castro Work Phone: [facility] Work Phone: Start: 04-23-2023 End: 04-24-2023 ambulatory None Provider Facility:[facility] Start: 06-05-2022 End: 06-06-[address] MARIE CASTRO Facility:[facility] Start: 05-18-2022 Encounter for other specified special examinations DR MARIE CASTRO [facility] Start: 05-14-2022 End: 05-15-[address] MARIE CASTRO Facility:[facility] Start: 05-14-2022 End: 05-15-2022 Encounter for other specified special examinations DR MARIE CASTRO Facility:[facility] Start: 01-02-2022 End: 01-07-2022 Evaluation and management of inpatient PAUL CONN [facility] Start: 01-02-2022 End: 01-07-2022 Evaluation and management of inpatient Gray Ross MD Work Phone: [id number] Comment on above: Acute gastric ulcer with perforation (HCC) (Primary Dx); Gastric perforation (HCC) Start: 01-02-2022 End: 01-02-[address] SALVADOR NARANJO Facility:[facility] Start: 06-14-2018 End: 06-15-2018 Patient encounter procedure MARIE JULIAN (FEL) [facility] Start: 04-27-2018 End: 04-27-2018 Patient encounter procedure MARINO CASTILLO [facility] Start: 04-19-2018 End: 04-20-2018 Patient encounter procedure MARINO Skinner CASTILLO [facility] Procedures Date Procedure Procedure Detail Performing Clinician Start: 08-16-2023 FOLLOW UP IN CARDIOLOGY ADRIÁN DAVIS Start: 07-27-2023 Plain X-ray of right hip DO Marie Castro Work Phone: Start: 07-16-2023 CL PCI SEWING MACHINE REPAIRER Ea Add LAD D O Marie Castro [...] on above: Result Comment: PERF ORMED BY: [facility] [place] [address] PATHOLOGIST BOROUGH COORDINATOR AIRAM MAST M.D. Start: 04-30-2023 End: [...] DTaP/Tdap/Td vaccine (3 - Td or Tdap) [facility] Start: 03-18-2028 DTaP/Tdap/Td Vaccine s (3 - Td or Tdap) DTaP/Tdap/Td Vaccines (3 - Td or Tdap) [facility] Start: 08-16-2023 End: 08-16-2024 Basic metabolic 2000 panel - Serum or Plasma Basic Metabolic Panel Lab Routine Cardiomyopathy, ischemic Expected: 08/16/2023 (Approximate), Expires: 08/16/2024 [facility] Work Phone: Comment on above: Expected: 08/16/2023 (Approximate), Expires: 08/16/2024 Start: 08-16-2023 End: 08-16-2024 Natriuretic peptide B [Mass/volume] in Blood B-Type Natriuretic Peptide Lab Routine Cardiomyopathy, ischemic Orthopnea Expected: 08/16/2023 (Approximate), Expires: 08/16/2024 [facility] Service Area Work Phone: Comment on above: Expected: 08/16/2023 (Approximate), Expires: 08/16/2024 Start: 07-16-2023 End: 07-16-2023 [facility] Start: 07-13-2023 COVID-19 Vaccine (3 - Moderna series) COVID-19 Vaccine (3 - Moderna series) [facility] Start: 06-23-2023 End: 06-23-2023 Patient encounter procedure 06/23/2023 2:00 PM EST Office Visit [facility] [address] [place] [address] Sammy Wolff, CASEWORKER-SKIN TANNER [address] [place] [address] [facility] Start: 05-07-2023 [facility] Start: 05-04-2023 Administration of prophylactic treatment [facility] Start: 05-03-2023 Hospital admission [facility] Start: 05-03-2023 Referral to clinical manager medicare marketing [facility] Start: 05-03-2023 [facility] Start: 05-03-2023 Referral to rehabilitation physician [facility] Start: 05-02-2023 Blood chemistry [facility] Start: 05-02-2023 [facility] Start: 05-01-2023 Blood chemistry [facility] Start: 05-01-2023 [facility] Start: 04-30-2023 Referral to Purification Operator Helper [facility] Start: 04-30-2023 Blood chemistry [facility] Start: 04-30-2023 End: 04-30-2023 [facility] Start: 04-29-2023 Blood chemistry [facility] Start: 04-29-2023 Lipid panel [facility] Start: 04-29-2023 [facility] Start: 04-28-2023 [facility] Start: 04-28-2023 Hospital admission [facility] Start: 04-28-2023 [facility] Start: 04-28-2023 Hospital admission [facility] Start: 04-28-2023 Consultation [facility] Start: 04-28-2023 Referral to payroll director [facility] Start: 04-28-2023 End: 04-28-2023 [facility] Start: 04-28-2023 Fluoroscopy of Left Heart using Low Osmolar Contrast Fluoroscopy of Left Heart using Low Osmolar Contrast [facility] Start: 04-28-2023 Fluoroscopy of Multi ple Coronary Arteries using Low Osmolar Contrast Fluoroscopy of Multiple Coronary Arteries using Low Osmolar Contrast [facility] Start: 04-28-2023 Insertion of Intramedullary Internal Fixation Device into Right Upper Femur, Percutaneous Approach Insertion of Intramedullary Internal Fixation Device into Right Upper Femur, Percutaneous Approach [facility] Start: 04-28-2023 Measurement of Cardi ac Sampling and Pressure, Left Heart, Percutaneous Approach Measurement of Cardiac Sampling and Pressure, Left Heart, Percutaneous Approach [facility] Start: 04-04-2022 Hemoglobin A1c measurement Diabetes: Hemoglobin A1C [facility] Start: 06-30-2021 Shingles vaccine (2 of 2) Shingles vaccine (2 of 2) [facility] Start: 01-19-2021 COVID-19 Vaccine (3 - Booster for Moderna series) COVID-19 Vaccine (3 - Booster for Moderna series) [facility] Start: 09-14-2020 Meningococcal B Vacc ine (3 of 4 - Increased Risk Bexsero 2-dose series) Meningococcal B Vaccine (3 of 4 - Increased Risk Bexsero 2-dose series) [facility] Start: 1956 Urine screening for protein Diabetes: Urine Protein Screening [facility] Start: 1949 Depression Screen Depression Screen Where Start: 1947 Diabetic foot examination Diabetes: Foot Exam [facility] Start: 1947 Glaucoma screening Diabetes: R etinopathy Screening [facility] Start: 1947 Meningococcal B Vacc ine (1 of 4 - Increased Risk) Meningococcal B Vaccine (1 of 4 - Increased Risk) [facility] Start: 1939 Meningococcal Vaccin e (1 - Risk 2-dose series) Meningococcal Vaccine (1 - Risk 2-dose series) [facility] Start: 06-22-1938 HIB Vaccines (1 of 1 - Risk 1-dose series) HIB Vaccines (1 of 1 - Risk 1-dose series) [facility] Start: 1937 Annual Wellness Visi t (AWV) Annual Wellness Visit (AWV) [facility] Start[facility] Lipid panel Lipid Panel [facility] Start: 1937 Medicare Annual Well ness Visit Medicare Annual Wellness Visit (AWV) [facility] Start: 1937 Screening for osteoporosis Bone Density Scan [facility] Basic Metabolic Pane l w/ Reflex to MG Basic Metabolic Panel w/ Reflex to MG Lab Routine Daily until discontinued starting 01/06/2022, 2 completed [employer] Phone: Comment on above: Daily until disconti nued starting 01/06/2022, 2 completed CBC W Auto Different ial panel - Blood CBC with Auto Differential Lab Routine Daily until discontinued starting 01/03/2022, 5 completed [employer] Phone: Comment on above: Daily until disconti nued starting 01/03/2022, 5 completed Glucose [Mass/volume ] in Serum or Plasma POCT Glucose Point of Care Testing STAT As Needed until discontinued starting 01/02/2022 [employer] Phone: Comment on above: As Needed until disc ontinued starting 01/02/2022 Glucose [Mass/volume ] in Serum or Plasma POCT glucose Point of Care Testing Routine Now Then Every 4hr until discontinued starting 01/03/2022 [employer] Phone: Comment on above: Now Then Every 4hr u ntil discontinued starting 01/03/2022 Glucose measurement estimated from glycated hemoglobin [facility] Oxygen therapy [[facility] Data Set] Initiate Oxygen Therapy Protocol Respiratory Care Routine As Needed until discontinued starting 01/02/2022 [employer] Phone: Comment on above: As Needed until disc ontinued starting 01/02/2022 Patient Education Carbohydrate C ounting Diet Femur Fracture (DC) Carb counting for adults with diabetes [facility] Work Phone: Patient referral [facility] Work Phone: Phosphate [Mass/volu me] in Serum or Plasma Phosphorus Lab Routine Daily until discontinued starting 01/06/2022, 2 completed [employer] Phone: Comment on above: Daily until disconti nued starting 01/06/2022, 2 completed Spirometry panel Incentive carolyn metry Respiratory Care Routine Every 2hr while awake until discontinued starting 01/03/2022 [employer] Phone: Comment on above: Every 2hr while awak e until discontinued starting 01/03/2022 [facility] Payers Date Payer Category Payer Unknown [id number] 2023 Self-pay [id number] 2002 Medicare MEDICARE MEDICAR E PART A AND B [id number] 2002-Present [address] [place] [address] [id number] 1959 Medicare [id number]. [id number] 1959 Unknown [id number] 1.2.840.547516.1.13.239.2.7.3. [id number] 1937 Unknown [id number] 2.16.840.1.825636.3.579.2.175 1937 Unknown [id number] 2.16.840.1.302148.3.579.2.593 1937 Unknown [id number] 2.16.840.1.138361.3.579.2.593 1937 Unknown [id number] 2.16.840.1.198194.3.579.2.593 1937 Unknown [id number] 2.16.840.1.910638.3.579.2.1259 1937 Unknown [id number] 2.16.840.1.509475.3.579.2.1259 1937 Unknown [id number] 2.16.840.1.940519.3.579.2.732 1937 Unknown [id number] 2.16.840.1.129097.3.579.2.718 1937 Unknown [id number] 2.16.840.1.197597.3.579.2.718 1937 Unknown [id number] 2.16.840.1.542041.3.579.2.718 1937 Unknown [id number] 2.16.840.1.052913.3.579.2.1244 1937 Unknown [id number] 2.16.840.1.694054.3.579.2.1244 1937 Unknown [id number] 2.16.840.1.114201.3.579.2.1244 Unknown [id number] 2.16.840.1.473225.3.579.2.531 Unknown [id number] 2.16.840.1.298580.3.579.2.531 Unknown [id number] 2.16.840.1.898779.3.579.2.531 Unknown [id number] 2.16.840.1.528372.3.579.2.531 Unknown [id number] 2.16.840.1.567571.3.579.2.531 Unknown [id number] 2.16.840.1.549063.3.579.2.531 Social History Date Type Detail Facility Start: 01-04-2022 End: 08-16-2023 Tobacco smoking status LAIS Ex-smoker Where End: 08-09-2022 History of tobacco use Cigarette Smoker [employer] Phone: Start: 01-04-2022 End: 08-16-2023 Tobacco use and exposure Smokeless tobacco non-user [employer] Phone: Start: 01-05-2022 Alcohol intake Ex-drinker (finding) [employer] Phone: Start: 1935 Sex Assigned At Not on file B [facility] [employer] Phone: Start: 12-24-2021 End: 08-16-2023 Exposure to SARS-CoV-2 (event) Not sure Where Start: 04-28-2023 End: 05-04-2023 Tobacco smoking status [facility] Current some day smoker [facility] Start: 1935 Sex Assigned At Male F [facility] Start: 05-25-2023 End: 08-16-2023 Sex Assigned At [facility] [employer] Other Start: 05-25-2023 End: 08-16-2023 Alcohol intake Current drinker of alcohol (finding) [facility] Work Phone: Start: 05-25-2023 End: 08-16-2023 Alcohol intake [facility] Work Phone: Start: 07-16-2023 End: 08-09-2022 Tobacco smoking status NHIS Smoker (finding) [facility] Medical Equipment Procedure Code Equipment Code Equipment Origin al Text Equipment Identifier Dates ORIF, hip Orthopaedic bone screw, non-bioabsorbable, non-sterile [id number] FDA Start: 04-30-2023 ORIF, hip Femur nail, sterile [id number] FDA Start: 04-30-2023 ORIF, hip Spiral blade [id number] FDA Start: 04-30-2023 CL STENT MARK FRONTIER 3.5 X 18 FDA Start: 07-16-2023 Goals Date Patient Goal Desired Activity /State Functional Status Date Assessment Result Facility 07-16-2023 Functional status Patient at Baseline [facility] Work Phone: 05-08-2023 Functional status Patient is Pro gressing Toward Baseline [facility] Work Phone: 05-03-2023 Functional status Patient is Pro gressing Toward Baseline [facility] Work Phone: 04-28-2023 Functional status Patient Not at Baseline [facility] Work Phone: Mental Status Date Assessment Result Facility 07-16-2023 Cognitive function Cognitive Sta tus Patient at Baseline [facility] Work Phone: 05-08-2023 Cognitive function Cognitive Sta tus Patient is Progressing Toward Baseline [facility] Work Phone: 05-03-2023 Cognitive function Cognitive Sta tus Patient is Progressing Toward Baseline [facility] Work Phone: 04-28-2023 Cognitive function Cognitive Sta tus Patient at Baseline [facility] Work Phone: Clinical Notes 01-07-2022 to 08-16-2023 Assessment & Plan Note - Sammy Wolff APRN-[employer]NER - 08/16/2023 2:40 PM ESTAssessment & Plan [...] follow up with primary Cardiology next week [facility] Work Phone: 08-16-2023 Miscellaneous Notes Associated [...] Elective PCI: Jul LAD: unsuccessful attempt - 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 Will be seeking POC from primary payroll director. Patient reports that overall has complaint(s) of [...] to Plavix. Will schedule follow-up with primary payroll director Dr. Perez next week. Review of Systems [...] Assessment: ASHD (arteriosclerotic heart disease) Jun 2023 [facility] [place] due to [place]. 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 Voice recognition software was utilized to prepare this document. documented in this encounter [facility] Work Phone: 08-16-2023 Instructions JAMIE Miramontes [...] to the office documented in this encounter [facility] Work Phone: 07-16-2023 Discharge summary Note Date/Time July 16, 2023 4:06pm [place] [address] Discharge Summary Signed Patient: Ashwini Vickers MR#: [id number] : 1935 Acct:[id number] Age/Sex: 88 / M Adm Date: 4 [...] Final Discharge Diagnosis: 1. Recent non-ST elevation CA associated with fall and hip fracture 2. Severe two-vessel ASHD involving mid LAD and diagonal branch bifurcation 3. Mild LV dysfunction 4. Successful PCI ostial diagonal branch into the LAD with 3.5 x 18 mm Mark stent 5. Chronic total occlusion proximal/mid LAD Summary Hospital Course Hospital course: 88-year-old gentleman with recent fall and hip fracture complicated by non-ST elevation CA, abnormal stress imaging and subsequent diagnosis of severe two-vessel coronary artery disease involving mid LAD and large diagonal branch bifurcation. The LAD itself is subtotally occluded with the diagonal branch origin being 80 to 85%. Patient was referred for elective attempt at crossing the LAD with possible revascularization as well as revascularization of the ostial diagonal branch. 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 If you require [...] weight lifting, stair steppers, etc. until the payroll director approves these activities. Check with the payroll director on your first follow-up visit. CALL YOUR PHYSICIAN at [phone]: -If bleeding should occur from the catheter insertion site- apply pressure to the site then immediately call us. -Report any fever, redness, drainage, increased swelling, or firmness at the catheter insertion site. Some bruising or slight swelling may be present at thetime of discharge. -Should arm or leg become cold, numb, white, or blue, contact the payroll director immediately. -IF you should experience episodes of [...] is recommended. Please call Central Scheduling at [phone] to schedule your appointment.] The attending payroll director or [facility] nurse clinician should provide you with specific instructions regarding activity, diet, medications, and further follow up for you. Follow the medication instructions provided on your discharge. If the dosages and instructions on this sheet differ from the dosage and instructions on the bottle, follow the instructions on the bottle. [facility] is not responsible for incorrect prescription [...] 30 Days Qty: 30 0RF Follow Up: [facility] [Outside] - 08/16/23 2:00 pm Documented By: Federico Davis DO 07/16/23 1452 Signed By: <Electronically signed by Federico Davis, DO> 07/16/23 1609 [facility] Work Phone: 1(789) 109-548601-05-2024 [facility] History of Present illness Narrative* Adrián Davis, - 05/25/2023 1:00 PM EST Subjective Ashwini Vickers is a 88 y.o. male Chief Complaint Hospital Follow-up Seen in cardiology consultation at the request of Dr. Anat Perez for further evaluation and management in regards to coronary artery disease, recent non-ST elevation CA with moderately reduced left ventricular dysfunction and [...] 3. NSTEMI (non-ST elevated myocardial infarction) ([facility]) - Follow Up In Cardiology; Future 4. Essential hypertension 5. Diabetes mellitus type II, non insulin dependent ([facility]) 6. Closed fracture of right hip, initial encounter ([facility]) [facility] Phone: 1(125) 591-394911-14-2023 Instructions* Patient Instructions* Lori Pelayo LPN - [...] time of your visit. [facility] Work Phone: 1(388) 760-554611-10-2023 Evaluation note* Encounter Date Diagnosis Assessment Notes Treatment Notes Treatment Clinical Notes May, Closed displaced intertrochanteric fracture of right femur, initial encounter (ICD-10 - S72.141A) Radiographs of right hip was reviewed with the patient today, along with a physical examination. Patient should continue with PT. Continue use of pain medication to control pain. [employer] Other 10-27-2023 Progress note Author Fredi Medrano [facility] May 07, 2023 12:48pm Note Date/Time May 07, 2023 1 2:36pm [facility] [address] [place] [address] Physiatry(Rehab) Progress Note Signed Patient: Ashwini Vickers MR#: [id number] : 1935 Acct:[id number] Age/Sex: 88 / M Adm Date: 3 Loc: Room: 8J2863-0 Type: ADM IN Attending Dr: Fredi Medrano [...] hypoglycemic in 40s. Patient was brought to [facility] ER where imaging demonstrated mildly displaced right [...] does not believe he has had an CA and is planning on performing an intervention [...] mg 05/03/23 16:59 Bisacodyl 10 Mg Supp.Rect SD 05/02/24 16:58 DAILY PRN Constipation Calcium Carbonate [...] 16:59 Docusate Enema 283 Mg/5 Ml Enema SD 05/02/24 16:58 DAILY PRN Constipation Enoxaparin Sodium [...] Code(s): I25.10 - Atherosclerotic heart disease of [place] coronary artery without angina pectoris Status: Acute [...] Code(s): I25.10 - Atherosclerotic heart disease of [place] coronary artery without angina pectoris Status: Acute (9) Postoperative pain, acute, hip: Code(s): G89.18 - Other acute postprocedural pain; M25.559 - Pain in unspecified hip Status: Acute Plan 88-year-old male presenting to acute inpatient rehabilitation unit with functional impairments secondary to right hip fracture s/p repair. Hospital course complicated by non-CA troponin elevation. He was found to have [...] equipment to enhance the patient's a functional moravian Ensure adequate nutrition and hydration Sleep no issues Pain: Continue current regimen. Discharge planning Home with in 7 to 10 days. I spent greater than 15 minutes for services, including ebzn-vg-jrmh encounter with the patient, discussion of the case, plan of care, and exam; and ukrigae-zq-inqt activities, such as reviewing pertinent solutions sales consultant documentation, recent therapy notes, laboratory and radiology studies, and discussion of case with care team including physician, nursing, lining caser, and therapists. More than 50 % of time was spent on patient/family counseling or coordination ofcare. Plan: I completed a substantive portion of this encounter, the medical decision makingportion of this note in its entirety, including Allied health note review, nursing note review, solutions sales consultant note review, discussion with nursing and case management, and more than 50% of my time was spent on counseling and coordination of care, time spent 25 minutes Patient was personally seen by me, Dr. Medrano, on the day of encounter, reviewed the history and the relevant portions of the chart, including current orders, allied health and solutions sales consultant notes, labs/imaging and performed smyth elements of exam and I formulated the plan of care and facilitated the medical decision making. Documented By: Fredi Medrano MD 1234 Signed By: <Electronically signed by Fredi Medrano MD> 05/07/23 1248 [facility] Work Phone: 1(340) 517-173710-26-2023 Progress note Author Fredi Medrano [facility] May 06, 2023 2:46pm Note Date/Time May 06, 2023 1 2:53pm [facility] [address] [place] [address] Physiatry(Rehab) Progress Note Signed Patient: Ashwini Vickers MR#: [id number] : 1935 Acct:[id number] Age/Sex: 88 / M Adm Date: 3 Loc: Room: [address] [place] [address] Type: ADM IN Attending Dr: Fredi Medrano [...] hypoglycemic in 40s. Patient was brought to [facility] ER where imaging demonstrated mildly displaced right [...] does not believe he has had an CA and is planning on performing an intervention [...] Tablet. PO 05/03/24 08:59 81 mg DAILY TAVAI Administration Atorvastatin Calcium 80 mg 05/03/23 21:00 05/05/23 20:23 Atorvastatin 80 Mg Tablet PO 05/02/24 20:59 80 mg QPM TAVIA Administration Bisacodyl 10 mg 05/03/23 16:59 Bisacodyl 10 Mg Supp.Rect SD 05/02/24 16:58 DAILY PRN Constipation Calcium Carbonate [...] 16:59 Docusate Enema 283 Mg/5 Ml Enema SD 05/02/24 16:58 DAILY PRN Constipation Enoxaparin Sodium [...] Insuln.Pen SUBCUT 05/02/24 17:59 Not Given ACHS [facility] Protocol Insulin Glargine 7 units 05/03/23 21:00 [...] mg DAILY TAVIA Administration Assessment/Plan <Teena Victoria, CASEWORKER - Last Filed: 05/06/23 13:14> Assessment/Plan (1) Closed intertrochanteric fracture of right hip: Code(s): S72.141A - Displaced intertrochanteric fracture of right femur, initial encounter for closed fracture Status: Acute (2) CAD (coronary artery disease): Code(s): I25.10 - Atherosclerotic heart disease of [place] coronary artery without angina pectoris Status: Acute [...] Code(s): I25.10 - Atherosclerotic heart disease of [place] coronary artery without angina pectoris Status: Acute (9) Postoperative pain, acute, hip: Code(s): G89.18 - Other acute postprocedural pain; M25.559 - Pain in unspecified hip Status: Acute Plan 88-year-old male presenting to acute inpatient rehabilitation unit with functional impairments secondary to right hip fracture s/p repair. Hospital course complicated by non-CA troponin elevation. He was found to have [...] equipment to enhance the patient's a functional moravian Ensure adequate nutrition and hydration Sleep no issues Pain: Continue current regimen. Discharge planning Home with in 7 to 10 days. I spent greater than 15 minutes for services, including emma-ch-ojjo encounter with the patient, discussion of the case, plan of care, and exam; and xihjjff-cl-szms activities, such as reviewing pertinent solutions sales consultant documentation, recent therapy notes, laboratory and radiology studies, and discussion of case with care team including physician, nursing, lining caser, and therapists. More than 50 % of [...] the chart, including currentorders, allied health and solutions sales consultant notes, labs/imaging and plan of care as above. Documented By: Teena Victoria APRN 05/06/23 1 250 Signed By: <Electronically signed by AMADA Victoria> 05/06/23 1314 <Electronically signed by Fredi Medrano MD> 05/06/23 1194 [facility] Work Phone: 1(622) 852-469510-26-2023 Consult note Author Vidya Robert [facility] May 06, 2023 1:15pm Note Date/Time May 04, 2023 3 :49pm [facility] [address] [place] [address] Hospitalist Consult Note Signed Patient: Ashwini Vickers MR#: [id number] : 1935 Acct:[id number] Age/Sex: 88 / M Adm Date: 3 Loc: Room: [address] [place] [address] Type: ADM IN Attending Dr: Fredi Medrano [...] negative unless noted below or in HPI [facility] Medical History (Updated 05/04/23 @ 16:15 [...] Allergies Allergy (Verified 04/28/23 12:20) Home Medications fuyagi-uknvlpcl-beyrmvg 24,000-76,000-120,000 unit capsule,delayed rel (Creon) 2cap PO [...] mg 05/03/23 16:59 Bisacodyl 10 Mg Supp.Rect SD 05/02/24 16:58 DAILY PRN Constipation Calcium Carbonate [...] 16:59 Docusate Enema 283 Mg/5 Ml Enema SD 05/02/24 16:58 DAILY PRN Constipation Enoxaparin Sodium 40 mg 05/04/23 10:00 05/04/23 11:25 Enoxaparin 40 Mg/0.4 Ml Syringe SUBCUT 05/03/24 09:59 40 mg DAILY@1000 TAVIA Administration Insulin Aspart 0 units 05/03/23 17:00 05/04/23 13:00 Insulin Aspart 300 Units/3 Ml Insuln.Pen SUBCUT 05/02/24 16:59 7 units TID.WITH.MEALS [facility] Administration Protocol Insulin Aspart 0 units 05/03/23 18:00 05/04/23 12:35 Insulin Aspart 300 Units/3 Ml Insuln.Pen SUBCUT 05/02/24 17:59 2 units ACHS [facility] Administration Protocol Insulin Glargine 7 units 05/03/23 [...] % (Auto) 64.9, Lymph % (Auto) 23.0, [place] % (Auto) 9.9, Eos % (Auto) 1.5, Baso % (Auto) 0.7, Nucleat RBC Rel Count 0.2, Neut # (Auto) 4.6, Lymph # (Auto) 1.6, [place] # (Auto) 0.7, Eos # (Auto) 0.1, [...] By: <Electronically signed by AMADA Wright> 05/05/23 0818 <Electronically signed by Vidya Robert MD> 05/06/23 1312 [facility] Work Phone: 1(755) 464-639910-25-2023 Progress note Author Fredi Medrano [facility] May 05, 2023 1:10pm Note Date/Time May 05, 2023 1 :11pm [facility] [address] [place] [address] Physiatry(Rehab) Progress Note Signed Patient: Ashwini Vickers MR#: [id number] : 1935 Acct:[id number] Age/Sex: 88 / M Adm Date: 3 Loc: Room: [address] [place] [address] Type: ADM IN Attending Dr: Fredi Medrano [...] hypoglycemic in 40s. Patient was brought to [facility] ER where imaging demonstrated mildly displaced right [...] does not believe he has had an CA and is planning on performing an intervention [...] mg 05/03/23 16:59 Bisacodyl 10 Mg Supp.Rect SD 05/02/24 16:58 DAILY PRN Constipation Calcium Carbonate [...] 16:59 Docusate Enema 283 Mg/5 Ml Enema SD 05/02/24 16:58 DAILY PRN Constipation Enoxaparin Sodium [...] Insuln.Pen SUBCUT 05/02/24 16:59 6 units TID.WITH.MEALS [facility] Administration Protocol Insulin Aspart 0 units 05/03/23 18:00 05/05/23 13:03 Insulin Aspart 300 Units/3 Ml Insuln.Pen SUBCUT 05/02/24 17:59 2 units ACHS [facility] Administration Protocol Insulin Glargine 7 units 05/03/23 [...] Code(s): I25.10 - Atherosclerotic heart disease of [place] coronary artery without angina pectoris Status: Acute [...] Code(s): I25.10 - Atherosclerotic heart disease of [place] coronary artery without angina pectoris Status: Acute (9) Postoperative pain, acute, hip: Code(s): G89.18 - Other acute postprocedural pain; M25.559 - Pain in unspecified hip Status: Acute Plan 88-year-old male presenting to acute inpatient rehabilitation unit with functional impairments secondary to right hip fracture s/p repair. Hospital course complicated by non-CA troponin elevation. He was found to have [...] equipment to enhance the patient's a functional moravian Ensure adequate nutrition and hydration Sleep no issues Pain: Continue current regimen. Discharge planning Home with in 7 to 10 days. Plan: I completed a substantive portion of this encounter, the medical decision makingportion of this note in its entirety, including Allied health note review, nursing note review, solutions sales consultant note review, discussion with nursing and case management, and more than 50% of my time was spent on counseling and coordination of care, time spent 25 minutes Patient was personally seen by me, Dr. Medrano, on the day of encounter, reviewed the history and the relevant portions of the chart, including current orders, allied health and solutions sales consultant notes, labs/imaging and performed smyth elements of exam and I formulated the plan of care and facilitated the medical decision making. Documented By: Fredi Medrano MD 1308 Signed By: <Electronically signed by Fredi Medrano MD> 05/05/23 3951 [facility] Work Phone: 1(606) 286-403910-25-2023 History and physical note Author Fredi Medrano [facility] May 05, 2023 10:01am Note Date/Time May 04, 2023 1 1:35am [facility] [address] [place], [place] [id number] Physiatry (Rehab) H&P Signed Patient: Ashwini Vickers MR#: [id number] : 1935 Acct:[id number] Age/Sex: 88 / M Adm Date: 3 Loc: Room: [address] [place] [address] Type: ADM IN Attending Dr: Fredi Medrano [...] hypoglycemic in 40s. Patient was brought to [facility] ER where imaging demonstrated mildly displaced right [...] does not believe he has had an CA and is planning on performing an intervention [...] two-story home. Does not use assistive devices. [facility] Medical History Anxiety and depression BPH [...] 12:20) Home and Active Meds: Home Medications sshofp-gfktrglg-miltfff 24,000-76,000-120,000 unit capsule,delayed rel (Creon) 2cap PO [...] 1 Cap Capsule.) 2 cap PO TID.WITH.MEALS [facility] Stop: 05/03/24 07:59 Last Admin: 05/04/23 08:18 Dose: 2 cap Ascorbic Acid (Ascorbic Acid 500 Mg Tablet) 500 mg PO DAILY TAVIA Stop: 05/03/24 08:59 Last Admin: 05/04/23 08:10 Dose: 500 mg Aspirin (Aspirin 81 Mg Tablet.) 81 mg PO DAILY TAVIA Stop: 05/03/24 08:59 Last Admin: 05/04/23 08:10 Dose: 81 mg Atorvastatin Calcium (Atorvastatin 80 Mg Tablet) 80 mg PO QPM [facility] Stop: 05/02/24 20:59 Last Admin: 05/03/23 21:13 Dose: 80 mg Bisacodyl (Bisacodyl 10 Mg Supp.Rect) 10 mg SD DAILY PRN PRN Reason: Constipation Stop: 05/02/24 16:58 Calcium Carbonate (Calcium Carbonate/Vitamin D3 500 Mg/200 Unit Tablet) 1 tab PO TID.WITH.MEALS [facility] Stop: 05/03/24 07:59 Last Admin: 05/04/23 08:10 Dose: 1 tab Cyclobenzaprine HCl (Cyclobenzaprine 5 Mg Tablet) 5 mg PO Q8H PRN PRN Reason: Muscle Spasm Stop: 05/03/24 10:29 Docusate Sodium (Docusate 100 Mg Capsule) 100 mg PO BID PRN PRN Reason: Constipation Stop: 05/02/24 16:58 Docusate Sodium (Docusate Enema 283 Mg/5 Ml Enema) 283 mg SD DAILY PRN PRN Reason: Constipation Stop: 05/02/24 16:58 Enoxaparin Sodium (Enoxaparin 40 Mg/0.4 Ml Syringe) 40 mg SUBCUT DAILY@1000 [facility] Stop: 05/03/24 09:59 Insulin Aspart (Insulin Aspart 300 Units/3 Ml Insuln.Pen) 0 units SUBCUT TID.WITH.MEALS [facility]; Protocol Stop: 05/02/24 16:59 Last Admin: 05/04/23 08:27 Dose: 7 units Insulin Aspart (Insulin Aspart 300 Units/3 Ml Insuln.Pen) 0 units SUBCUT ACHS [facility]; Protocol Stop: 05/02/24 17:59 Last Admin: 05/04/23 [...] 30 Mg Tablet) 30 mg PO DAILY [facility] Stop: 05/03/24 08:59 Last Admin: 05/04/23 08:10 Dose: 30 mg Sennosides (Sennosides 8.6 Mg Tablet) 2 tab PO DAILY@12 PRN PRN Reason: If no BM in 2 days Stop: 05/03/24 11:59 Sodium Chloride (Sodium Chloride 0.9 % 10 Ml Syringe) 0 ml IV-PUSH PRN PRN PRN Reason: Flush Stop: 05/02/24 16:58 Tamsulosin HCl (Tamsulosin 0.4 Mg Cap.Er.24h) 0.4 mg PO DAILY [facility] Stop: 05/03/24 08:59 Last Admin: 05/04/23 08:10 Dose: 0.4 mg Triamcinolone Acetonide (Triamcinolone 0.1% Cream 15 Gm Tube) 1 applic TOPICAL QID PRN PRN Reason: Irritation Stop: 05/02/24 17:10 Valsartan (Valsartan 80 Mg Tablet) 80 mg PO DAILY [facility] Stop: 05/03/24 08:59 Last Admin: 05/04/23 08:10 [...] % (Auto) 64.9 Lymph % (Auto) 23.0 [place] % (Auto) 9.9 Eos % (Auto) 1.5 Baso % (Auto) 0.7 Nucleat RBC Rel Count 0.2 Neut # (Auto) 4.6 Lymph # (Auto) 1.6 [place] # (Auto) 0.7 Eos # (Auto) 0.1 [...] MPV Neut % (Auto) Lymph % (Auto) [place] % (Auto) Eos % (Auto) Baso % (Auto) Nucleat RBC Rel Count Neut # (Auto) Lymph # (Auto) [place] # (Auto) Eos # (Auto) Baso # [...] 14 Days Expected Discharge Destination: Home Rehabilitation [facility]: 8.11 Primary Diagnosis: as above Patient?s/Family?s [...] 24 hour daily monitoring and intervention from Community Outreach Coordinator as well as other consulting physicians including internal medicine as well as 24 hour daily primary operator nursing - for medical safe / optimal [...] Code(s): I25.10 - Atherosclerotic heart disease of [place] coronary artery without angina pectoris Status: Acute [...] Code(s): I25.10 - Atherosclerotic heart disease of [place] coronary artery without angina pectoris Status: Acute (9) Postoperative pain, acute, hip: Code(s): G89.18 - Other acute postprocedural pain; M25.559 - Pain in unspecified hip Status: Acute Plan 88-year-old male presenting to acute inpatient rehabilitation unit with functional impairments secondary to right hip fracture s/p repair. Hospital course complicated by non-CA troponin elevation. He was found to have [...] equipment to enhance the patient's a functional moravian Ensure adequate nutrition and hydration Sleep no issues Pain: Continue current regimen. Discharge planning Home with in 7 to 10 days. I spent greater than 45 minutes for services, including sljm-gl-yeaa encounter with the patient, discussion of the case, plan of care, and exam; and [id number] activities, such as reviewing pertinent solutions sales consultant documentation, recent therapy notes, laboratory and radiology studies, and discussion of case with care team including physician, nursing, lining caser, and therapists. More than 50 % of time was spent on patient/family counseling or coordination ofcare. Plan: I completed a substantive portion of this encounter, the medical decision makingportion of this note in its entirety, including Allied health note review, nursing note review, solutions sales consultant note review, discussion with nursing and case management, and more than 50% of my time was spent on counseling and coordination of care, time spent 70 minutes Patient was personally seen by me, Dr. Medrano, on the day of encounter, within 24 hours of rehab admission, reviewed the history and the relevant portions of the chart, including current orders, allied health and solutions sales consultant notes, labs/imaging and performed smyth elements of exam and I formulated the planof care and facilitated the medical decision making. Documented By: Teena Victoria APRN 05/04/23 1 122 Signed By: <Electronically signed by AMADA Victoria> 05/04/23 1209 <Electronically signed by Fredi Medrano MD> 05/05/23 1001 [facility] Work Phone: 1(835) 206-529010-23-2023 Progress note Author Ashwini Conrad [facility] May 03, 2023 12:02pm Note Date/Time May 03, 2023 1 1:49am [facility] [address] [place] [address] Orthopedic Progress Note Signed Patient: Ashwini Vickers MR#: [id number] : 1935 Acct:[id number] Age/Sex: 88 / M Adm Date: 3 Loc: Room: [address] [place] [address] Type: ADM IN Attending Dr: Humberto Diaz [...] Code(s): I25.10 - Atherosclerotic heart disease of [place] coronary artery without angina pectoris Status: Acute [...] signed by Ashwini Conrad MD> 05/03/23 1202 [facility] Work Phone: 1(511) 204-227210-22-2023 Progress note Author Sushant Cordon [facility] May 02, 2023 2:35pm Note Date/Time May 02, 2023 2 :35pm [facility] [address] [place] [address] Hospitalist Progress Note Signed Patient: Ashwini Vickers#: [id number] : 1935 Acct:[id number] Age/Sex: 88 / M Adm Date: 3 Loc: 4N Room: 5J5005-6 Type: ADM IN Attending Dr: Sushant Cordon [...] mg 04/28/23 17:19 Bisacodyl 10 Mg Supp.Rect SD 04/27/24 17:18 DAILY PRN Constipation Calcium Carbonate [...] Units/3 Ml Insuln.Pen SUBCUT 05/01/24 16:59 TID.WITH.MEALS [facility] Protocol Insulin Glargine 7 units 05/01/23 21:00 [...] signed by Sushant Cordon DO> 05/02/23 1431 [facility] Work Phone: 1(138) 389-401110-22-2023 Progress note Author Ashwini Conrad [facility] May 02, 2023 2:12pm Note Date/Time May 02, 2023 2 :12pm [facility] [address] [place] [address] Orthopedic Progress Note Signed Patient: Ashwini Vickers MR#: [id number] : 1935 Acct:[id number] Age/Sex: 88 / M Adm Date: 3 Loc: 4N Room: 8W6511-8 Type: ADM IN Attending Dr: Sushant Cordon [...] MPV Neut % (Auto) Lymph % (Auto) [place] % (Auto) Eos % (Auto) Baso % (Auto) Nucleat RBC Rel Count Neut # (Auto) Lymph # (Auto) [place] # (Auto) Eos # (Auto) Baso # [...] % (Auto) 71.9 Lymph % (Auto) 13.7 [place] % (Auto) 13.5 Eos % (Auto) 0.8 Baso % (Auto) 0.1 Nucleat RBC Rel Count 0.0 Neut # (Auto) 6.2 Lymph # (Auto) 1.2 [place] # (Auto) 1.2 H Eos # (Auto) [...] MPV Neut % (Auto) Lymph % (Auto) [place] % (Auto) Eos % (Auto) Baso % (Auto) Nucleat RBC Rel Count Neut # (Auto) Lymph # (Auto) [place] # (Auto) Eos # (Auto) Baso # (Auto) PHA Creatinine Clear Sodium Potassium Chloride Carbon Dioxide Anion Gap BUN Creatinine Est GFR (CKD-EPI) Glucose POC Glucose 376 POC Glucose Comment Calcium Triglycerides Cholesterol LDL Cholesterol, Calc VLDL Cholesterol HDL Cholesterol Cholesterol/HDL Ratio Assessment / Plan Assessment and plan (1) Two-vessel coronary artery disease: Code(s): I25.10 - Atherosclerotic heart disease of [place] coronary artery without angina pectoris Status: Acute [...] signed by Ashwini Conrad MD> 05/02/23 1412 [facility] Work Phone: 1(268) 346-364110-22-2023 Progress note Author Harsh Del Valle [facility] May 02, 2023 10:49am Note Date/Time May 02, 2023 1 0:49am [facility] [address] [place] [address] Cardiology Progress Note Signed Patient: Ashwini Vickers MR#: [id number] : 1935 Acct:[id number] Age/Sex: 88 / M Adm Date: 3 Loc: 4N Room: [address] [place] [address] Type: ADM IN Attending Dr: Sushant Cordon [...] is to be determined by her primary payroll director and Dr. Davis Exam Physical Exam Vital [...] MPV Neut % (Auto) Lymph % (Auto) [place] % (Auto) Eos % (Auto) Baso % (Auto) Nucleat RBC Rel Count Neut # (Auto) Lymph # (Auto) [place] # (Auto) Eos # (Auto) Baso # [...] % (Auto) 71.9 Lymph % (Auto) 13.7 [place] % (Auto) 13.5 Eos % (Auto) 0.8 Baso % (Auto) 0.1 Nucleat RBC Rel Count 0.0 Neut # (Auto) 6.2 Lymph # (Auto) 1.2 [place] # (Auto) 1.2 H Eos # (Auto) [...] MPV Neut % (Auto) Lymph % (Auto) [place] % (Auto) Eos % (Auto) Baso % (Auto) Nucleat RBC Rel Count Neut # (Auto) Lymph # (Auto) [place] # (Auto) Eos # (Auto) Baso # [...] Code(s): I25.10 - Atherosclerotic heart disease of [place] coronary artery without angina pectoris Status: Acute [...] intervention Documented By: Harsh Del Valle MD, [facility] 3 1047 Signed By: <Electronically signed by MD CHESTER Harsh Del Valle> 05/02/23 1049 [facility] Work Phone: 1(434) 360-854710-21-2023 Progress note Author Sushant Cordon [facility] May 01, 2023 3:13pm Note Date/Time May 01, 2023 3 :09pm [facility] [address] [place] [address] Hospitalist Progress Note Signed Patient: Ashwini Vickers MR#: [id number] : 1935 Acct:[id number] Age/Sex: 88 / M Adm Date: 3 Loc: N Room: 0L2387-6 Type: ADM IN Attending Dr: Sushant Cordon [...] mg 04/28/23 17:19 Bisacodyl 10 Mg Supp.Rect SD 04/27/24 17:18 DAILY PRN Constipation Calcium Carbonate [...] Insuln.Pen SUBCUT 04/27/24 21:59 Not Given TID.WM.HS [facility] Protocol Insulin Glargine 7 units 05/01/23 21:00 Insulin Glargine 300 Units/3 Ml Insuln.Pen SUBCUT 04/30/24 20:59 BID [facility] Lidocaine HCl 0.1 ml 04/29/23 01:31 Lidocaine [...] signed by Sushant Cordon DO> 05/01/23 1513 [facility] Work Phone: 1(670) 249-445310-21-2023 Progress note Author Harsh Del Valle [facility] May 01, 2023 12:24pm Note Date/Time May 01, 2023 1 2:21pm [facility] [address] [place] [address] Cardiology Progress Note Signed Patient: Ashwini Vickers MR#: [id number] : 1935 Acct:[id number] Age/Sex: 88 / M Adm Date: 3 Loc: 4N Room: 1J3243-7 Type: ADM IN Attending Dr: Sushant Cordon [...] MPV Neut % (Auto) Lymph % (Auto) [place] % (Auto) Eos % (Auto) Baso % (Auto) Nucleat RBC Rel Count Neut # (Auto) Lymph # (Auto) [place] # (Auto) Eos # (Auto) Baso # [...] MPV Neut % (Auto) Lymph % (Auto) [place] % (Auto) Eos % (Auto) Baso % (Auto) Nucleat RBC Rel Count Neut # (Auto) Lymph # (Auto) [place] # (Auto) Eos # (Auto) Baso # [...] MPV Neut % (Auto) Lymph % (Auto) [place] % (Auto) Eos % (Auto) Baso % (Auto) Nucleat RBC Rel Count Neut # (Auto) Lymph # (Auto) [place] # (Auto) Eos # (Auto) Baso # [...] MPV Neut % (Auto) Lymph % (Auto) [place] % (Auto) Eos % (Auto) Baso % (Auto) Nucleat RBC Rel Count Neut # (Auto) Lymph # (Auto) [place] # (Auto) Eos # (Auto) Baso # [...] % (Auto) 68.2 Lymph % (Auto) 16.8 [place] % (Auto) 14.1 Eos % (Auto) 0.6 Baso % (Auto) 0.3 Nucleat RBC Rel Count 0.1 Neut # (Auto) 6.0 Lymph # (Auto) 1.5 [place] # (Auto) 1.2 H Eos # (Auto) [...] MPV Neut % (Auto) Lymph % (Auto) [place] % (Auto) Eos % (Auto) Baso % (Auto) Nucleat RBC Rel Count Neut # (Auto) Lymph # (Auto) [place] # (Auto) Eos # (Auto) Baso # [...] Code(s): I25.10 - Atherosclerotic heart disease of [place] coronary artery without angina pectoris Status: Acute [...] intervention Documented By: Harsh Del Valle MD, [facility] 3 1220 Signed By: <Electronically signed by [facility] Harsh Del Valle> 05/01/23 1224 [facility] Work Phone: 1(522) 592-636610-21-2023 Progress note Author Ashwini Conrad [facility] May 01, 2023 11:31am Note Date/Time May 01, 2023 1 1:31am [facility] [address] [place] [address] Orthopedic Progress Note Signed Patient: Ashwini Vickers MR#: [id number] : 1935 Acct:[id number] Age/Sex: 88 / M Adm Date: 3 Loc: N Room: 0L7476-7 Type: ADM IN Attending Dr: Sushant Cordon [...] % (Auto) 79.2 Lymph % (Auto) 5.9 [place] % (Auto) 14.6 Eos % (Auto) 0.0 Baso % (Auto) 0.3 Nucleat RBC Rel Count 0.1 Neut # (Auto) 7.4 Lymph # (Auto) 0.6 L [place] # (Auto) 1.4 H Eos # (Auto) [...] MPV Neut % (Auto) Lymph % (Auto) [place] % (Auto) Eos % (Auto) Baso % (Auto) Nucleat RBC Rel Count Neut # (Auto) Lymph # (Auto) [place] # (Auto) Eos # (Auto) Baso # [...] MPV Neut % (Auto) Lymph % (Auto) [place] % (Auto) Eos % (Auto) Baso % (Auto) Nucleat RBC Rel Count Neut # (Auto) Lymph # (Auto) [place] # (Auto) Eos # (Auto) Baso # [...] MPV Neut % (Auto) Lymph % (Auto) [place] % (Auto) Eos % (Auto) Baso % (Auto) Nucleat RBC Rel Count Neut # (Auto) Lymph # (Auto) [place] # (Auto) Eos # (Auto) Baso # [...] MPV Neut % (Auto) Lymph % (Auto) [place] % (Auto) Eos % (Auto) Baso % (Auto) Nucleat RBC Rel Count Neut # (Auto) Lymph # (Auto) [place] # (Auto) Eos # (Auto) Baso # [...] % (Auto) 68.2 Lymph % (Auto) 16.8 [place] % (Auto) 14.1 Eos % (Auto) 0.6 Baso % (Auto) 0.3 Nucleat RBC Rel Count 0.1 Neut # (Auto) 6.0 Lymph # (Auto) 1.5 [place] # (Auto) 1.2 H Eos # (Auto) [...] MPV Neut % (Auto) Lymph % (Auto) [place] % (Auto) Eos % (Auto) Baso % (Auto) Nucleat RBC Rel Count Neut # (Auto) Lymph # (Auto) [place] # (Auto) Eos # (Auto) Baso # [...] Code(s): I25.10 - Atherosclerotic heart disease of [place] coronary artery without angina pectoris Status: Acute [...] signed by Ashwini Conrad MD> 05/01/23 1131 [facility] Work Phone: 1(349) 966-385410-20-2023 Progress note Author Sushant Cordon [facility] April 30, 2023 9:13pm Note Date/Time April 30, 2023 9 :13pm [facility] [address] [place] [address] Hospitalist Progress Note Signed Patient: Ashwini Vickers MR#: [id number] : 1935 Acct:[id number] Age/Sex: 88 / M Adm Date: 3 Loc: Room: [address] [place] [address] Type: ADM IN Attending Dr: Sushant Cordon [...] mg 04/28/23 17:19 Bisacodyl 10 Mg Supp.Rect SD 04/27/24 17:18 DAILY PRN Constipation Calcium Carbonate [...] Mg/0.4 Ml Syringe SUBCUT 04/30/24 09:59 DAILY@1000 [facility] Glucose 0 gm 04/28/23 17:14 04/30/23 08:42 [...] Lactated Ringers IV 04/29/24 16:44 Not Given .[id number] [facility] Cefazolin Sodium 1 gm in 50 [...] Tablet PO 04/28/24 08:59 Not Given DAILY [facility] Potassium Chloride 40 meq 04/30/23 07:00 Potassium [...] <Electronically signed by Sushant Cordon DO> 04/30/232112 [facility] Work Phone: 1([phone]) 166-492410-20-2023 Hospital Discharge instructions Additional Instructions Rehab to [...] high armed straight-backed chair. -May use toilet pss delivery professional on commode. -Continue to use walker or [...] OTHER -Any problems- Call the office at [phone] or return to Emergency Room. -If you are having excessive or persistent pain, swelling, fever (oral temp >101), yellow-green foul smelling drainage or bleeding from incision, excessive redness of incision, nausea, vomiting, or any other problems, you should first call your surgeon at [phone] for advice. If you are unable to contact your surgeon, seek help from a hospital emergency room. FOLLOW UP -Call my office the first business day after discharge and ask for assistance with post-discharge plans, and appointments.[facility] Work Phone: 1(115) 429-219910-20-2023 Progress note Author Anat Perez [facility] April 30, 2023 10:32am Note Date/Time April 30, 2023 1 0:32am [facility] [address] [place] [address] Cardiology Progress Note Signed Patient: Ashwini Vickers MR#: [id number] : 1935 Acct:[id number] Age/Sex: 88 / M Adm Date: 3 Loc: Room: [address] [place] [address] Type: ADM IN Attending Dr: Sushant Cordon [...] events overnight. Denies chest pain or dyspnea. [facility] scheduled for this AM (findings as below) [...] MPV Neut % (Auto) Lymph % (Auto) [place] % (Auto) Eos % (Auto) Baso % (Auto) Nucleat RBC Rel Count Neut # (Auto) Lymph # (Auto) [place] # (Auto) Eos # (Auto) Baso # [...] MPV Neut % (Auto) Lymph % (Auto) [place] % (Auto) Eos % (Auto) Baso % (Auto) Nucleat RBC Rel Count Neut # (Auto) Lymph # (Auto) [place] # (Auto) Eos # (Auto) Baso # [...] % (Auto) 60.6 Lymph % (Auto) 22.0 [place] % (Auto) 16.4 Eos % (Auto) 0.6 Baso % (Auto) 0.4 Nucleat RBC Rel Count 0.1 Neut # (Auto) 5.4 Lymph # (Auto) 2.0 [place] # (Auto) 1.5 H Eos # (Auto) [...] MPV Neut % (Auto) Lymph % (Auto) [place] % (Auto) Eos % (Auto) Baso % (Auto) Nucleat RBC Rel Count Neut # (Auto) Lymph # (Auto) [place] # (Auto) Eos # (Auto) Baso # [...] MPV Neut % (Auto) Lymph % (Auto) [place] % (Auto) Eos % (Auto) Baso % (Auto) Nucleat RBC Rel Count Neut # (Auto) Lymph # (Auto) [place] # (Auto) Eos # (Auto) Baso # [...] Dizziness/syncope due to recurrent hypoglycemia Recommendations: - [facility] this am is significant for two-vessel coronary artery disease- 100% prox LAD occlusion; 80% D1; LCx has 50% prox stenosis with 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 - Discussed with rod buster helper- Dr Davis regarding timing of intervention- given that pt did not have CA on presentation and was very functional prior [...] signed by Anat Perez MD> 04/30/23 1032 [facility] Work Phone: 1([phone] 127-857810-20-2023 [facility] Progress note Author Sushant Cordon [facility] April 29, 2023 6:28pm Note Date/Time April 29, 2023 6 :28pm [facility] [address] [place] [address] Hospitalist Progress Note Signed Patient: Ashwini Vickers MR#: [id number] : 1935 Acct:[id number] Age/Sex: 88 / M Adm Date: 3 Loc: N Room: [address] [place] [address] Type: ADM IN Attending Dr: Sushant Cordon [...] mg 04/28/23 17:19 Bisacodyl 10 Mg Supp.Rect SD 04/27/24 17:18 DAILY PRN Constipation Calcium Carbonate [...] Dextrose-Lactated Ringers IV 04/27/24 17:14 125 mls/hr .[id number] [facility] Administration Lactated Ringer's 1,000 mls @ [...] <Electronically signed by Sushant Cordon DO> 04/29/231827 [facility] Work Phone: 1([phone] 588-882310-19-2023 Consult note Author Anat Perez [facility] April 29, 2023 5:34pm Note Date/Time April 29, 2023 5 :07pm [facility] [address] [place] [address] Cardiology Consult Note Signed Patient: Ashwini Vickers MR#: [id number] : 1935 Acct:[id number] Age/Sex: 88 / M Adm Date: 3 Loc: 4N Room: [address] [place] [address] Type: ADM IN Attending Dr: Sushant Cordon [...] negative unless noted below or in HPI [facility] Medical History (Updated 04/29/23 @ 17:34 by Anat Perez MD) BPH (benign prostatic hyperplasia) Diabetes type 1 Surgical History (Updated 04/28/23 @ 17:34 by Sushant Cordon DO) History of pancreatectomy Family History (Updated 04/28/23 @ 16:16 by Vivain Munoz RN) Brother Cancer Son Sarcoma Social [...] unit subcut HS 04/28/23 [History Confirmed 04/28/23] iauswi-yntgppsw-ymnvrdf 24,000-76,000-120,000 unit capsule,delayed rel (Creon) 2cap PO [...] x10E3/uL Lymph # (Auto) 2.0 (1.00-4.8) x10E3/uL [place] # (Auto) 1.1 H (0.0-0.8) x10E3/uL Eos [...] ,000 ml @ 125 mls/hr IV .Q8H [facility] Rx#:[id number] Oral 0 / 0 0 / 0 [...] disease) prior to surgery. -Will plan for [facility] tomorrow for further evaluation/risk stratification. NPO past midnight. Documented By: Anat Perez MD 04/29/23 1704 Signed By: <Electronically signed by Anat Perez MD> 04/29/23 2627 [facility] Work Phone: 1(354) 316-328010-18-2023 Consult note Author Ashwini Conrad [facility] April 28, 2023 6:47pm Note Date/Time April 28, 2023 6 :43pm [facility] [address] [place] [address] Orthopedic Consult Note Signed Patient: Ashwini Vickers MR#: [id number] : 1935 Acct:[id number] Age/Sex: 88 / M Adm Date: 3 Loc: 4N Room: [address] [place] [address] Type: ADM IN Attending Dr: Sushant Cordon [...] negative unless noted below or in HPI [facility] Medical History (Updated 04/28/23 @ 17:35 [...] unit subcut HS 04/28/23 [History Confirmed 04/28/23] kmxqeq-effatpzm-wyhbhgo 24,000-76,000-120,000 unit capsule,delayed rel (Creon) 2cap PO [...] Appearance Clear, Urine pH 6.5, Ur Specific [place] 1.009, Urine Protein Negative, Urine Glucose (UA) [...] % (Auto) 75.0, Lymph % (Auto) 14.8, [place] % (Auto) 9.3, Eos % (Auto) 0.5, Baso % (Auto) 0.4, Nucleat RBC Rel Count 0.1, Neut # (Auto) 7.3, Lymph # (Auto) 1.4, [place] # (Auto) 0.9 H, Eos # (Auto) 0.0, Baso # (Auto) 0.0, Monocyte Dist Width 18.61 H & H 04/28/23 Range/Units 13:20 Hgb 11.5 L (13.0-17.0) g/dL Hct 34.8 L (38.8-50.0) % Coagulation 04/28/23 Range/Units 13:20 INR 1.0 All other labs are normal. Imaging & Diagnostic Results Imaging/Diagnostics: [place] [place] Right FEMUR/RIGHT HIP/PELVIS: AP of the [...] signed by Ashwini Conrad MD> 04/28/23 1847 [facility] Work Phone: 1([phone]) 285-648510-18-2023 History and physical note Author Sushant Cordon [facility] April 28, 2023 5:40pm Note Date/Time April 28, 2023 5 :40pm [facility] [address] [place] [address] Hospitalist H&P Signed Patient: Ashwini Vickers MR#: [id number] : 1935 Acct:[id number] Age/Sex: 88 / M Adm Date: 3 Loc: Room: [address] [place] [address] Type: ADM IN Attending Dr: Sushant Cordon [...] for a total pancreatectomy performed at the [facility] in [facility] about 3 years ago. This was done [...] had what sounds like an EGD in [place] about 15 months ago with what sounds like some gastritis. Otherwise his past medical history seems to include prostate hypertrophy. Social history: He does smoke a cigar daily after dinner. In the past he smoked0.25 of a pack per day of cigarettes. He does drink wine daily with dinner. Heis mainly retired from [employer] here in [place]. 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 Family history: A sister of an unspecified cancer. Another sibling ofwhat sounds like acute leukemia. Review of Systems Review of Systems Review of systems: 10 systems are reviewed and are negative except as mentioned elsewhere in the documentation. [facility] Medical History (Updated 10/18/23 @ 17:35 [...] unit subcut HS 04/28/23 [History Confirmed 04/28/23] [id number]-ooahmmve-qcdvpjc 24,000-76,000-120,000 unit capsule,delayed rel (Creon) 2cap PO [...] % (Auto) 14.8 % (.) 04/28/23 13:20 [place] % (Auto) 9.3 % (.) 04/28/23 13:20 Eos % (Auto) 0.5 % (.) 04/28/23 13:20 Baso % (Auto) 0.4 % (.) 04/28/23 13:20 Nucleat RBC Rel Count 0.1 /100 WBC (0-0.5) 04/28/23 13:20 Neut # (Auto) 7.3 x10E3/uL (1.8-7.7) 04/28/23 13:20 Lymph # (Auto) 1.4 x10E3/uL (1.00-4.8) 04/28/23 13:20 [place] # (Auto) 0.9 x10E3/uL (0.0-0.8) H 04/28/23 [...] pH 6.5 (5.0-9.0) 04/28/23 15:00 Ur Specific [place] 1.009 (1.001-1.030) 04/28/23 15:00 Urine Protein Negative [...] did order an echocardiogram but the echocardiogram donor services technician has likely gone home for the [...] signed by Sushant Cordon, > 04/28/23 1740 [facility] Work Phone: 1(646) 909-206706-29-2022 History of Present illness Narrative* Courtney Singh - 01/07/2022 12:25 PM EDT CLINICAL PHARMACY NOTE: MEDS TO BEDS Total # of Prescriptions Filled: 3 The following medications were delivered to the patient: Sucralfate susp Amlodipine Pantoprazole Additional Documentation: Pharmacy dispensed all we had of the Sucralfate susp- will transfer the rest to the [facility] in [place], [place] $8.61 collected via [facility]over * Jose [...] 01/03/2022 3:25 PM EDT Occupational Therapy Facility/Department: [address] Occupational Therapy Initial Assessment Name: Ashwini Vickers : 1935 Date of Service: 01/03/2022 Chief Complaint Patient presents with Abdominal Pain ulcer Discharge Recommendations: Patient would benefit from continued therapy after discharge OT Equipment Recommendations Equipment Needed: Yes Mobility Devices: ADL Assistive Devices ADL Assistive Devices: Digital Product Specialist;Long-handled Sponge;Long-handled Shoe Horn;Sock- Aid Hard;Grab Bars -shower [...] Ambulation Assistance: Independent Transfer Assistance: Independent Active Placer Miner: Yes Mode of Transportation: [facility] Occupation: Retired Type of Occupation: Reports he has retired 4-5 times. Works on [employer] sometimes now debo wants. [employer]. Use to work for [employer]. Leisure & [...] 01/03/2022 12:40 PM EDT Physical Therapy Facility/Department: [address] [facility] Physical Therapy Initial Assessment Name: Ashwini Vickers [...] Ambulation Assistance: Independent Transfer Assistance: Independent Active Placer Miner: Yes Mode of Transportation: SUV Occupation: Retired Type of Occupation: Reports he has retired 4-5 times. 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 Pt did not have any belongings transferred with him from the OR. documented in this encounterBON [facility] AT SURPRISEHive[facility] [employer] Work Phone: consult note Author Tru Briceno [facility] May 03, 2023 3:17pm Note Date/Time May 03, 2023 2 :59pm [facility] [address] [place] [address] Physiatry (Rehab) Consult Note Signed Patient: Ashwini Vickers MR#: [id number] : 1935 Acct:[id number] Age/Sex: 88 / M Adm Date: 3 Loc: 4N Room: [address] [place] [address] Type: ADM IN Attending Dr: Humberto Diaz [...] negative unless noted below or in HPI [facility] Medical History BPH (benign prostatic hyperplasia) [...] unit subcut HS 04/28/23 [History Confirmed 04/28/23] ulaxuq-czaxfbps-ybjlyft 24,000-76,000-120,000 unit capsule,delayed rel (Creon) 2cap PO [...] bisacodyl 10 mg rectal suppository 10 mg SD DAILY PRN Constipation #0 ea 05/03/23 [Rx] [...] Code(s): I25.10 - Atherosclerotic heart disease of [place] coronary artery without angina pectoris Status: Acute [...] at least 3 times weekly encounters with battery parts assembler for medical management and for plan of care review / changes. Plan: I completed a substantive portion of this encounter, the medical decision making portion of this note in its entirety, including Allied health note review, nursing note review, solutions sales consultant note review, discussion with nursing and case management, and more than 50% of my time was spent on counseling and coordination of care, time spent 65 minutes Patient was personally seen by me, Dr. Briceno, on the day of encounter, reviewed the history and the relevant portions of the chart, including current orders, allied health and solutions sales consultant notes, labs/imaging and performed smyth elements of exam and I formulated the plan of care and facilitated the medical decision making. Documented By: Tru Briceno MD 05/03/23 1455 Signed By: <Electronically signed by Tru Briceno MD> 05/03/23 6767 [facility] Work Phone: Discharge summary Author Humberto Diaz [facility] May 03, 2023 2:54pm Note Date/Time May 03, 2023 2 :39pm [facility] [address] [place] [address] Discharge Summary Signed Patient: Ashwini Vickers MR#: [id number] : 1935 Acct:[id number] Age/Sex: 88 / M Adm Date: 3 Loc: Room: [address] [place] [address]: Hubmerto Diaz MD Copies to: MD Marie Ambrose,DO~ [...] p CL LHC [facility] COR Angio - Anta Perez MD Operation Date: 04/30/23 15:30 Actual [...] Discharge Plan Discharge Plan Patient Disposition: [place] [facility] [place] Diet: Diabetic Additional Instructions: Rehab to manage: [...] high armed straight-backed chair. -May use toilet pss delivery professional on commode. -Continue to use walker or [...] OTHER -Any problems- Call the office at [phone] or return to Emergency Room. -If you are having excessive or persistent pain, swelling, fever (oral temp >101), yellow-green foul smelling drainage or bleeding from incision, excessive redness of incision, nausea, vomiting, or any other problems, you should first call your surgeon at [phone] for advice. If you are unable to [...] 0RF bisacodyl 10 mg Suppository 10 mg SD DAILY PRN (Reason: Constipation) Qty: 0 0RF [...] (call at discharge from Rehab to see Automotive Generator Repairer for future ANGIOPLASTY PROCEDURE) Marie Castro DO [...] <Electronically signed by Humberto Diaz MD> 05/03/23 6571 [facility] Work Phone: Evaluation note* Diagnosis [...] or unspecified documented in this encounter [facility] Work Phone: evaluation note* Diagnosis Onset Date Resolution Status Abnormal EKG acute Closed intertrochanteric fracture of right hip acute Elevated troponin acute [facility] Work Phone: Evaluation note* Diagnosis Onset Date Resolution Status Abnormal EKG acute Closed intertrochanteric fracture of right hip acute Diabetes acute Elevated troponin acute Impaired mobility and activities of daily living acute Mild left ventricular systolic dysfunction (LVSD) acute Nonsustained monomorphic ventricular tachycardia acute Postoperative pain, acute, hip acute Two-vessel coronary artery disease acute [facility] Work Phone: Evaluation note* Diagnosis [...] artery disease acute Uncontrolled diabetes mellitus acute [facility] Work Phone: Evaluation note* Diagnosis NSTEMI (non-ST elevated myocardial infarction) ([facility])- Primary Acute myocardial infarction, subendocardial infarction, episode of care unspecified Abnormal stress test Other nonspecific abnormal cardiovascular system function study ASHD (arteriosclerotic heart disease) Coronary atherosclerosis of unspecified type of vessel, [place] or graft Essential hypertension Unspecified essential hypertension Diabetes mellitus type II, non insulin dependent ([facility]) Type II or unspecified type diabetes mellitus without mention of complication, not stated as uncontrolled Closed fracture of right hip, initial encounter ([facility]) documented in this encounter [facility] Work Phone: Evaluation noteNo InformationNortMeadville Medical Center 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 Other Evaluation note* Diagnosis Onset Date Resolution Status Diabetes acute CAD (coronary artery disease) acute Diabetes acute [facility] Work Phone: Evaluation note* Diagnosis Cardiomyopathy, ischemic- Primary Other specified forms of chronic ischemic heart disease ASHD (arteriosclerotic heart disease) Coronary atherosclerosis of unspecified type of vessel, [place] or graft BMI 20.0-20.9, adult Orthopnea documented in this encounter [facility] Work Phone: History general Narrative - Reported* Type Description Date Medical History stage 1 diabetes Surgical History pancreas and spleen removal Surgical History back surgery Surgical History tonsilectomy Surgical History HIP TFN Short 2022 [facility] Other Hospital Discharge instructions* Instructions* Viki Donovan [...] scheduled appointment, please call the office at [phone]. Call Your Doctor If Any of the [...] through Care Everywhere. * Surgical Drain Care (Romansh) documented [facility] [employer] Work Phone: Hospital Discharge instructions Additional Instructions [...] -Dietary supplement: Glucerna 1 container twice a day.[facility] Work Phone: Hospital Discharge instructions [...] doctor or pharmacist, without first calling the payroll director who implanted the stent. If you require [...] weight lifting, stair steppers, etc. until the payroll director approves these activities. Check with the payroll director on your first follow-up visit. CALL YOUR PHYSICIAN at [phone]: -If bleeding should occur from the catheter insertion site- apply pressure to the site then immediately call us. -Report any fever, redness, drainage, increased swelling, or firmness at the catheter insertion site. Some bruising or slight swelling may be present at the time of discharge. -Should arm or leg become cold, numb, white, or blue, contact the payroll director immediately. -IF you should experience episodes of [...] is recommended. Please call Central Scheduling at [phone] to schedule your appointment.] The attending payroll director or [facility] nurse clinician should provide you with specific instructions regarding activity, diet, medications, and further follow up for you. Follow the medication instructions provided on your discharge. If the dosages and instructions on this sheet differ from the dosage and instructions on the bottle, follow the instructions on the bottle. [facility] is not responsible for incorrect prescription information provided by the patient during their visit. Do not stop your medications without consulting your health care provider. Please take the list with you to your next doctor's appointment.[facility] Work Phone: Reason for referral (narrative)* Consultation (Routine) - Authorized Specialty Diagnoses / Procedures Referred By Contac t Referred To Contact Cardiology Diagnoses Abnormal stress test ASHD (arteriosclerotic heart disease) NSTEMI (non-ST elevated myocardial infarction) ([facility]) Procedures Follow Up In Cardiology Adrián Davis, DO [facility] [facility], [address] [place] [id number] Adrián Davis, DO [facility] [place] [address] Referral ID Status Reason Start Date Expiration Date V isits Requested Visits Authorized [id number] Authorized 05/25/2023 05/24/2024 1 1 * Cardiovascular (Routine) - Pending Review Specialty Diagnoses / Procedures Referred By Contac t Referred To Contact Diagnoses Abnormal stress test ASHD (arteriosclerotic heart disease) Procedures ECG 12 Lead Adrián Davis, DO [facility], [address] [address] Referral ID Status Reason Start Date Expiration Date V isits Requested Visits Authorized [id number] Pending Review 05/25/2023 05/24/2024 1 1 [facility] Work Phone: Summary Purpose Family History [...] section and content) DATE CREATED AUTHOR 06/25/2018 [facility] DATE CREATED AUTHOR AUTHOR'S ORGANIZ ATION 06/21/2019 [facility] DATE CREATED AUTHOR AUTHOR'S ORGANIZ ATION 01/29/[address] [facility] DATE CREATED AUTHOR AUTHOR'S ORGANIZ ATION 06/11/2022 [facility] DATE CREATED AUTHOR AUTHOR'S ORGANIZ ATION 05/31/2023 [facility] EPIC DATE CREATED AUTHOR AUTHOR'S ORGANIZ ATION 06/12/2023 [facility] DATE CREATED AUTHOR AUTHOR'S ORGANIZ ATION 07/02/2023 [facility] DATE CREATED AUTHOR AUTHOR'S ORGANIZ ATION 08/16/2023 [facility] DATE CREATED AUTHOR AUTHOR'S ORGANIZ ATION 08/20/[address] [facility] Ambulatory Reason for Visit (unrecogniz ed section and content) Reason Comments Abdominal Pain ulcer Specialty Diagnoses / Procedures Referred By Contac t Referred To Contact Diagnoses Acute gastric ulcer with perforation (HCC) Perforated viscus Paul Conn, DO [address] [address] [facility] [address] [place] [address] Referral ID Status Reason Start Date Expiration Date Visits Re quested Visits Authorized [id number] 1 1 Reason Comments Hospital Follow[place]up [facility] [place] [place]23 Specialty Diagnoses / Procedures Referred By Contac t Referred To Contact Diagnoses Abnormal stress test ASHD (arteriosclerotic heart disease) Procedures ECG 12 Lead Adrián Davis, DO [facility], [facility] [address] [place] [address] Referral ID Status Reason Start Date Expiration Date V isits Requested Visits Authorized [id number] Pending Review 05/25/2023 05/24/2024 1 1 Reason Comments Follow-up PCI Specialty Diagnoses / Procedures Referred By Contac t Referred To Contact Cardiology Diagnoses ASHD (arteriosclerotic heart disease) Procedures Follow Up In Cardiology Sammy Wolff, CASEWORKER-SKIN TANNER [facility] [place] [address] Referral ID Status Reason Start Date Expiration Date V isits Requested Visits Authorized [id number] Authorized 06/23/2023 06/22/2024 1 1 Ordered Prescriptions [...] Active Tru Briceno MD Other Provider Active Workforce Planning Analyst Relationship Specialty Start Date End Date Marie Castro [facility] [address] [place] [address] PCP - General Internal Medicine 01/07/22 Team [...] MD Other Provider Active Vivian Zavala , CASEWORKER Other Provider Active Samantha Wilson , DO Other Provider Active Eric Major MD Other Provider Active Sushant Cordon , DO Other Provider Active Audi Gaming MD Other Provider Active Cecily Keen MD Other Provider Active Nidia Wright , CASEWORKER Other Provider Active Daniel Reyes MD Other Provider Active Roberto Sevilla MD Other Provider Active Humberto Diaz MD Other Provider Active Marzena Otto MD Other Provider Active Gray Gilliam , DO Other Provider Active Mc Cornejo MD Other Provider Active Raymundo Angeles MD Other Provider Active Marga Mccauley , MEDICAL INSURANCE CLAIMS SPECIALIST-C Other Provider Active Indra Guillory MD Other Provider Active David Fonseca MD Other Provider Active Hai Aguilera MD Other Provider Active Esau Corrales MD Other Provider Active Leda Julian , DO Other Provider Active Guevara Mills , DO Other Provider Active Jose Roberto Felder , DO Other Provider Active Anat Marte CASEWORKER Other Provider Active Warren Gross , DO Other Provider Active Nayeli Jimenez MD Other Provider Active Nicole Wolff CASEWORKER Other Provider Active Melisa Pimentel , CASEWORKER Other Provider Active Vidya Robert MD Other Provider Active Howard Burrell MD Other Provider Active Immanuel John , DO Other Provider Active Rosario Murdock APRN Other Provider Active Mauricio Drake , DO Other Provider Active Erma Morillo , KARIN Other Provider Active Workforce Planning Analyst Relationship Specialty Start Date End Date Marie Castro, DO [address] [place] [address] PCP - General Internal Medicine 05/18/23 Team Status: Inactive Member Role Status Dates Marie Castro , Primary Care Provider Active Ashwnii Conrad MD Attending Provider Active Team Status: [...] Active Herminio Lakhani MD Attending Provider Active Workforce Planning Analyst Relationship Specialty Start Date End Date Marie Castro DO [address] [facility] [address] [place] [address] PCP - General Internal Medicine 05/18/23 FOR [...] BE BASED ON THE PRIMARY CLINICAL RECORDS. [facility]. provides no warranty or guarantee of the accuracy or completeness of information in this document.
[2023-08-21 21:06] LABS: Glucometer 304 mg/dL (74-106)
[2023-08-21] MEDS: INSULIN DETEMIR 300 UNIT/3 ML INSULN.PEN 10 UNIT SQ (21:49)
[2023-08-21] MEDS: 0.9 % SODIUM CHLORIDE 1,000 ML 100 ML IV (22:18)
[2023-08-22 00:10] LABS: Glucometer 33 mg/dL (74-106)
[2023-08-22] MEDS: DEXTROSE 50 %-WATER 25 GM/50 ML SYRINGE IV (00:32)
[2023-08-22] MEDS: DEXTROSE 5 %-0.45 % SOD CHLOR 1,000 ML IV.SOLN 100 ML IV (00:35)
--- NOTE | 2023-08-22 00:40 | PC.NURSE ---
Accu check via machine noted 260. Jean Paul reads 83. At this time jean paul removed for safety and accuracy. Pt voices and understanding and agrees.
[2023-08-22 00:48] LABS: Glucometer 260 mg/dL (74-106)
[2023-08-22 01:52] VITALS: PULSE 62
[2023-08-22 03:42] LABS: Glucometer 172 mg/dL (74-106)
[2023-08-22 03:51] VITALS: PULSE 63
[2023-08-22 04:13] VITALS: BP 136/67; PULSE 71; RESP 16; TEMP 36.4; O2SAT 96
[2023-08-22 05:04] LABS: Basophils Percent Auto 0.4 % (0.2-2.0); Eosinophils Absolute Auto 0.1 10^3/uL (0.0-0.7); Eosinophils Percent Auto 1.2 % (0.9-7.0); Hemoglobin 9.3 g/dL (14.0-18.0); Immature Granulocytes Abs Auto 0.03 10^3/uL (0.00-0.03); Immature Granulocytes Pct Auto 0.4 % (0.0-0.5); Lymphocytes Absolute Auto 1.5 10^3/uL (1.2-3.8); Lymphocytes Percent Auto 19.2 % (20.5-60.0); Mean Corpuscular HGB Conc 32.1 g/dL (29.9-35.2); Mean Corpuscular Hemoglobin 25.3 pg (25.9-34.0); Mean Platelet Volume 12.2 fL (9.5-13.5); Monocytes Percent Auto 12.5 % (1.7-12.0); Neutrophils Absolute Auto 5.2 10^3/uL (1.4-6.5); Neutrophils Percent Auto 66.3 % (43.0-75.0); Platelet Count 264 10^3/uL (150-450); Red Blood Count 3.67 10^6/uL (4.70-6.10); Red Cell Distribution Width 18.6 % (11.0-15.0); White Blood Count 7.8 10^3/uL (4.0-11.0)
[2023-08-22 05:43] LABS: Alanine Aminotransferase 28 U/L (16-63); Albumin Globulin Ratio 0.8; Albumin Level 2.9 g/dL (3.4-5.0); Alkaline Phosphatase 164 U/L (46-116); Aspartate Amino Transferase 33 U/L (15-37); BUN Creatinine Ratio 30.6; Bilirubin Total 0.3 mg/dL (0.2-1.0); Calcium 8.3 mg/dL (8.5-10.1); Carbon Dioxide 25.8 mmol/L (21.0-32.0); Chloride 104 mmol/L (98-107); Estimated GFR (African America >60 (>=60); Estimated GFR (Non-African Ame >60 (>=60); Globulin 3.6 g/dL; Glucose 158 mg/dL (74-106); Potassium 4.8 mmol/L (3.5-5.1); Sodium 137 mmol/L (136-145); Total Protein 6.5 g/dL (6.4-8.2)
[2023-08-22 05:54] LABS: Glucometer 148 mg/dL (74-106)
[2023-08-22 06:01] VITALS: PULSE 71
[2023-08-22 07:53] VITALS: PULSE 81
[2023-08-22 08:00] LABS: Glucometer 193 mg/dL (74-106)
[2023-08-22] MEDS: TAMSULOSIN HCL 0.4 MG CAPSULE PO (09:12)
[2023-08-22] MEDS: INSULIN ASPART 300 UNIT/3 ML PEN SUBQ (09:12)
[2023-08-22] MEDS: CLOPIDOGREL BISULFATE 75 MG TABLET PO (09:12)
[2023-08-22 09:58] VITALS: PULSE 65
--- NOTE | 2023-08-22 14:48 | PM.HP ---
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 He is on continuous insulin pump and uses Glargine once a day. He is following Dr Reagan and being closely monitored. He reports good appetite, PO intake and denies N/V or diarrhea. He reports frequent hypoglycemic episodes and that his lantus was recently decreased as a result of hypoglycemia. Patent was admitted overnight for monitoring while on D5 infusion. Patient asymptomatic, his blood glucose remained well controlled and stable for discharge. Patient was advised to not use Lantus and just use insulin pump alongwith bolus doses of short acting insulin as before. He was also asked to follow up with his PCP and endocrine and return to hospital/seek care if persistently low or elevated blood glucose. Review of Systems ROS Status of ROS 10 or more systems reviewed and unremarkable except as noted in history and below [facility] Medical History (Updated 08/22/23 @ 15:01 by Shaikh Avel MD) H/O chronic pancreatitis ?Z87.19 - Personal history of other diseases of the digestive system (ICD-10) CAD (coronary artery disease) ?I25.10 - Atherosclerotic heart disease of [place] coronary artery without angina pectoris (ICD-10) Insulin dependent diabetes mellitus Atherosclerosis ?I70.90 - Unspecified atherosclerosis (ICD-10) Closed fracture of right hip requiring operative repair ?S72.001A - Fracture of unspecified part of neck of right femur, initial encounter for closed fracture (ICD-10) Diabetes ?E11.9 - Type 2 diabetes mellitus without complications (ICD-10) Surgical History (Updated 08/22/23 @ 10:52 by Lamar Mahan) H/O heart artery stent ?Z95.5 - Presence of coronary angioplasty implant and graft (ICD-10) 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 (ICD-10) 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) Social History Smoking status: Never smoker Meds Home Medications and Allergies Home Medications Medication Instructions Recorded Confirmed Type clopidogrel 75 mg tablet 75 mg PO .qd 08/21/23 08/21/23 History furosemide 20 mg tablet 20 mg PO .qd 08/21/23 08/21/23 History itztwx-kweqyiim-nluixkp 2 cap PO TIDWM 08/21/23 08/21/23 History 24,000-76,000-120,000 unit capsule,delayed rel (Creon) nitroglycerin 0.4 mg sublingual 0.4 mg sublingual Q5M PRN chest 08/21/23 08/21/23 History tablet pain tamsulosin 0.4 mg capsule 0.4 mg PO QAM 08/21/23 08/21/23 History Allergies Allergy/AdvReac Type Severity Reaction Status Date / Time No Known Drug Allergies Allergy Verified 08/21/23 11:01 Exam Constitutional Vital Signs, click to edit/add: Last Vital Signs Temp 97.5 F L 08/22/23 04:13 Pulse 65 08/22/23 09:58 Resp 16 08/22/23 04:13 BP 136/67 08/22/23 04:13 Pulse Ox 96 08/22/23 04:13 O2 Del Method Room Air 08/22/23 04:13 Documenting provider has reviewed patient's vital signs: yes Common normals: no apparent distress and oriented x3 General appearance: cooperative HENMT Common normals: normocephalic and head/scalp atraumatic Head and scalp: normocephalic and atraumatic Eye Common normals: conjunctivae normal and no scleral icterus Conjunctiva: conjunctiva(e) normal Respiratory Common normals: normal respiratory effort and clear to auscultation bilaterally Effort & inspection: able to speak in complete sentences Auscultation: clear to auscultation bilaterally Cardio Common normals: regular rate, S1 normal heart sound and S2 normal heart sound Rate: regular rate Heart sounds: S1 normal and S2 normal GI Common normals: Normal to inspection, nondistended, normoactive bowel sounds present, soft to palpation, non-tender and no hepatosplenomegaly Palpation: soft and no hepatosplenomegaly Extremity Common normals: no clubbing, cyanosis or edema Neuro Common normals: oriented x3, moves all extremities and no focal motor deficits Psych Common normals: mental status grossly normal, denies hallucinations, denies homicidal ideation and denies suicidal ideation Results Labs Labs: Short CBC 08/22/23 Range/Units 04:25 WBC 7.8 (4.0-11.0) 10^3/uL Hgb 9.3 L (14.0-18.0) g/dL Hct 29.0 L (42.0-54.0) % Plt Count 264 (150-450) 10^3/uL BMP 08/22/23 04:23 Sodium 137 Potassium 4.8 Chloride 104 Carbon Dioxide 25.8 BUN 22.0 H Creatinine 0.72 Glucose 158 H Calcium 8.3 L Liver Function 08/22/23 Range/Units 04:23 Total Bilirubin 0.3 (0.2-1.0) mg/dL AST 33 (15-37) U/L ALT 28 (16-63) U/L Alkaline Phosphatase 164 H (46-116) U/L Albumin 2.9 L (3.4-5.0) g/dL Assessment and Plan Assessment and Plan (1) Hypoglycemia: (2) Insulin dependent diabetes mellitus: (3) CAD (coronary artery disease): Qualifiers: Coronary Disease-Associated Artery/Lesion type: [place] artery [place] vs. transplanted heart: [place] heart Associated angina: without angina Qualified Code(s): I25.10 - Atherosclerotic heart disease of [place] coronary artery without angina pectoris (4) H/O chronic pancreatitis: Plan Admitted for symptomatic hypoglycemia. Observed overnight to ensure blood glucose remain stable. Patient stable for discharge. Asked to stop using Lantus, c/w Insulin pump at current rate along with bolus with meals as before. Follow up with PCP , endocrine in 1-2 weeks.
--- NOTE | 2023-08-23 14:50 | CM.DCFOLLOWU ---
08/23- 1st attempt. No answer
--- NOTE | 2023-08-24 14:47 | CM.DCFOLLOWU ---
08/24- 2nd attempt no answer
--- NOTE | 2023-08-25 15:47 | CM.DCFOLLOWU ---
3rd attempt- no answer 08/25
== END 2023-08-22 12:22 | disposition home or self-care (01) ==
LOC: ER 12:45 → MS 18:04
PROVIDERS: Admitting Provider Internal Medicine; Emergency Provider Emergency Medicine; PCP Internal Medicine; Visit Provider Internal Medicine
DX: E13.649 Other specified diabetes mellitus with hypoglycemia without coma (principal); E89.1 Postprocedural hypoinsulinemia; I25.10 Atherosclerotic heart disease of native coronary artery without angina pectoris; I70.90 Unspecified atherosclerosis; Z90.410 Acquired total absence of pancreas; Z79.4 Long term (current) use of insulin; Z79.899 Other long term (current) drug therapy; Z96.41 Presence of insulin pump (external) (internal); Z95.5 Presence of coronary angioplasty implant and graft; Z90.81 Acquired absence of spleen
CPT/HCPCS: 36415; 70450; 80053; 82948; 83036; 83735; 84484; 85025; 93005; 96372; 99285; G0378; J1650

== ENCOUNTER 2023-08-31 07:56 | Emergency (ER) | payer MEDICARE, OTHER, SELFPAY ==
[2023-08-31] VITALS (47 sets, daily range): BP systolic 100–145; BP diastolic 54–77; PULSE 66–79; RESP 10–24; TEMP 36.3–36.6; O2SAT 93–100; BMI 20.2
--- NOTE | 2023-08-31 08:09 | XR_ITS ---
The [address] [address] Patient Name: ASHWINI VICKERS MRN: [id number] date: 1935 Sex: M Assigned Patient Location: ER Current Patient Location: ER Accession/Order Number: [id number] Exam Date: 08/31/2023 08:21 Report Date: 08/31/2023 08:49 At the request of: VJ LAINEZ Procedure: XR chest 1V EXAMINATION: XR chest 1V HISTORY: Trauma , dizziness, fell, on Plavix COMPARISON: No relevant comparison available. FINDINGS: LUNGS: No significant pulmonary parenchymal abnormalities. VASCULATURE: No increased pulmonary vasculature. PLEURA: No pneumothorax, effusion, or pleural thickening. CARDIAC: No cardiomegaly or cardiac silhouette abnormality. MEDIASTINUM: No visible mass or adenopathy. BONES: No fracture or visible bone lesion. OTHER: Negative. XR/XR chest 1V IMPRESSION: 1. No acute cardiopulmonary process or suspicious findings. 2. No appreciable fracture. Electronically authenticated by: MIMA GUZMAN Date: 08/31/2023 08:49
--- NOTE | 2023-08-31 08:09 | ECG_ITS ---
The [facility] Test Date: 2023-08-31 Pat Name: ASHWINI VICKERS Department: Room: - Gender: Male Senior Air Director: : 1935 Requested By: [id number] Order Number: [id number] Reading MD: SALVADOR NARANJO Measurements Intervals [place] Rate: 68 P: -70 [place]: 138 QRS: 44 QRSD: 90 T: 187 QT: 438 QTc: 456 Interpretive Statements 1300 Junctional rhythm 4164 Twave abnormality, possible anterolateral ischemia 9150 abnormal ECG Electronically Signed On 08-31-2023 23:11:48 EST by SALVADOR NARANJO
--- NOTE | 2023-08-31 08:09 | CT_ITS ---
The [address] [address] Patient Name: ASHWINI VICKERS MRN: [id number] date: 1935 Sex: M Assigned Patient Location: ER Current Patient Location: ER Accession/Order Number: [id number] Exam Date: 08/31/2023 08:21 Report Date: 08/31/2023 09:01 At the request of: VJ LAINEZ Procedure: CT cervical spine wo con EXAMINATION: CT cervical spine wo con HISTORY: Trauma , dizziness, fell, on Plavix COMPARISON: No relevant comparison available. TECHNIQUE: Axial, Coronal, and Sagittal images were created without IV contrast. Dose reduction techniques were achieved by using automated exposure control and/or adjustment of mA and/or kV according to patient size and/or use of iterative reconstruction technique. FINDINGS: VERTEBRAL BODIES: Minimally displaced fracture involving the tip of the spinous process of C4 and likely C5 vertebral bodies. No disruption of the lamina. No compression fracture or spondylolisthesis. FACET JOINTS: Multilevel moderate-marked degenerative facet arthropathy resulting in bone encroachment on the neural foramen.. No disruption or abnormal widening. DISCS: Mild narrowing C2-3, C5-C6. Moderate narrowing C6-7. Posterior disc bulging causing moderate central canal narrowing C3-4 through C6-7. Multilevel moderate marked foramen narrowing. CENTRAL CANAL: No evidence of hemorrhage. PARASPINAL AREA: No visible mass. CT/CT cervical spine wo con IMPRESSION: 1. Acute, nondisplaced to very minimally displaced fractures involving the tip of the spinous process of C4 and C5 vertebral bodies. 2. Multilevel moderate marked degenerative changes resulting in central canal and foraminal stenosis. Electronically authenticated by: MIMA GUZMAN Date: 08/31/2023 09:01
--- NOTE | 2023-08-31 08:09 | CT_ITS ---
The [address] [address] Patient Name: ASHWINI VICKERS MRN: [id number] date: 1935 Sex: M Assigned Patient Location: ER Current Patient Location: ER Accession/Order Number: [id number] Exam Date: 08/31/2023 08:21 Report Date: 08/31/2023 08:49 At the request of: VJ LAINEZ Procedure: CT head/brain wo con CT head/brain wo con, 08/31/2023 8:21 AM EST INDICATION: Trauma COMPARISON: Noncontrast CT of the head 08/21/2023 TECHNIQUE: Axial CT images of the brain from skull base to vertex, including portions of the face and sinuses, were obtained without contrast. Multiplanar reformatted images were generated and reviewed as needed. FINDINGS: Global cortical atrophy. Periventricular and deep white matter microvascular ischemic change. Adams-white matter differentiation is preserved No intra-axial mass, hydrocephalus, midline shift or acute hemorrhage. No extra-axial collection. Orbits are within normal limits. The paranasal sinuses and mastoid air cells are clear. No acute skull fracture. CT/CT head/brain wo con IMPRESSION: No acute intracranial abnormality. Electronically authenticated by: LISETH RODRIGUEZ Date: 08/31/2023 08:49
[2023-08-31 08:10] LABS: Glucometer 300 mg/dL (74-106)
--- NOTE | 2023-08-31 08:13 | ED.FALL1 ---
HPI - Fall General Chief Complaint: Fall Stated Complaint: FALL Time Seen by Provider: 08/31/23 08:02 History of Present Illness HPI Narrative: Patient brought to us by EMS after a fall at home. He lives with his . He is a good historian, he is awake and alert. Apparently when paramedics picked him up he was placed in a [place] collar and he had a lightheaded episode and route here. His vitals remained stable. Historically, he states that he needed to use the restroom and walked in. After using the restroom he got up to walk back to the bed and he felt woozy and lightheaded and fell. He has forehead contusions and he also has discomfort in the neck area. He had slight discomfort in the left anterior chest but no injury to the lower extremities. He did not have any shortness of breath or chest discomfort prior to this episode. He did not describe any vertigo or diplopia or focal neurological complaints prior to this he just felt lightheaded and then he fell after using the restroom. It should be noted the patient was just admitted here recently for hypoglycemia. He is known to have a insulin pump. We did check his glucose on arrival here and it was 300. The has arrived and she is provided more history. Apparently this patient just saw his primary care doctor yesterday but did not tell him about the black stool. He had a heart catheterization approximately 6 weeks ago and has 1 stent, he has been on Plavix since that time. Related Data Home Medications Medication Instructions Recorded Confirmed clopidogrel 75 mg tablet 75 mg PO .qd 08/21/23 08/21/23 furosemide 20 mg tablet 20 mg PO .qd 08/21/23 08/21/23 mmlrxw-ijnrbxlo-sipgpaa 2 cap PO TIDWM 08/21/23 08/21/23 24,000-76,000-120,000 unit capsule,delayed rel (Creon) nitroglycerin 0.4 mg sublingual 0.4 mg sublingual Q5M PRN chest 08/21/23 08/21/23 tablet pain tamsulosin 0.4 mg capsule 0.4 mg PO QAM 08/21/23 08/21/23 Allergies Allergy/AdvReac Type Severity Reaction Status Date / Time No Known Drug Allergies Allergy Verified 08/31/23 08:03 [facility] Medical History (Updated 08/31/23 @ 11:12 by Yves Gomes MD) H/O chronic pancreatitis ?Z87.19 - Personal history of other diseases of the digestive system (ICD-10) CAD (coronary artery disease) ?I25.10 - Atherosclerotic heart disease of [place] coronary artery without angina pectoris (ICD-10) Insulin dependent diabetes mellitus Atherosclerosis ?I70.90 - Unspecified atherosclerosis (ICD-10) Closed fracture of right hip requiring operative repair ?S72.001A - Fracture of unspecified part of neck of right femur, initial encounter for closed fracture (ICD-10) Diabetes ?E11.9 - Type 2 diabetes mellitus without complications (ICD-10) Surgical History (Updated 08/22/23 @ 10:52 by Lamar Mahan) H/O heart artery stent ?Z95.5 - Presence of coronary angioplasty implant and graft (ICD-10) 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 (ICD-10) 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 Glucose is normal. Vital signs on arrival are no benign or essentially normal. He is awake alert [place] x 3 GCS is normal. He has no tingling numbness or weakness to the extremities moves about the upper and lower limbs with no difficulty. His color is good however he is somewhat pale mucous membranes. His lungs were clear with no wheeze rales or rhonchi. He does have mild discomfort over the left anterior chest wall. HEENT shows minor abrasions and contusions over the forehead and right temporal area. There is no CSF otorrhea or rhinorrhea or hemotympanum. Abdomen is benign with no guarding rebound or rigidity. He is in diapers. He has spontaneous complete unrestricted movement of the limbs. There is no bony tenderness. Neurological examination GCS is 15 has no lateralizing neurological findings or symptoms. The perineum is unremarkable but he does have a moderate amount of incontinence with black stool. Hemoccult will be done. Incidentally he noted that for the last 2 days he has noticed that his bowel movements have turned black. Incidentally he is on Plavix. Constitutional Vital Signs, click to edit/add: Last Vital Signs Temp 97.9 F 08/31/23 10:22 Pulse 72 02/20/24 10:22 Resp 16 08/31/23 10:22 BP 118/57 08/31/23 10:22 Pulse Ox 100 08/31/23 10:22 O2 Del Method Room Air 08/31/23 07:57 Course Vital Signs Vital signs: Vital Signs Temperature 97.4 F L 08/31/23 07:57 Pulse Rate 70 08/31/23 07:57 Respiratory Rate 16 08/31/23 07:57 Blood Pressure 114/59 08/31/23 07:57 Pulse Oximetry 99 08/31/23 07:57 Oxygen Delivery Method Room Air 08/31/23 07:57 Temperature 97.9 F 08/31/23 10:22 Pulse Rate 72 08/31/23 10:22 Respiratory Rate 16 08/31/23 10:22 Blood Pressure 118/57 08/31/23 10:22 Pulse Oximetry 100 08/31/23 10:22 Oxygen Delivery Method Room Air 08/31/23 07:57 MDM - Fall MDM Narrative Medical decision making narrative: This patient, who was recently here, fell at home. His stool was black and tarry guaiac positive and his hemoglobin is decreasing. He is not tachycardic or hypotensive. He is on Plavix. He injured self with a nondisplaced spinous process fracture of C4 and C5. I spoke with a Dr. Spencer at the trauma center in [place] and he does not believe that patient would require surgical intervention or transfer to a tertiary center. The patient received intravenous Protonix and was typed and crossed for 2 units of blood. He is receiving 1 unit of blood at this time. The case was discussed with GI on-call at [facility] and he is excepted the patient. The report was then given to the hospitalist at [facility] and he is excepted to transfer. The patient is stable. Lab Data Labs: Lab Results 08/31/23 08/31/23 08/31/23 Range/Units 08:08 08:13 08:53 WBC 16.8 H (4.0-11.0) 10^3/uL RBC 2.43 L (4.70-6.10) 10^6/uL Hgb 6.2 L* (14.0-18.0) g/dL Hct 19.3 L* (42.0-54.0) % MCV 79.4 L (80.0-94.0) fL MCH 25.5 L (25.9-34.0) pg MCHC 32.1 (29.9-35.2) g/dL RDW 18.6 H (11.0-15.0) % Plt Count 187 (150-450) 10^3/uL Neut % (Auto) 85.2 H (43.0-75.0) % Lymph % (Auto) 6.2 L (20.5-60.0) % [place] % (Auto) 7.5 (1.7-12.0) % Eos % (Auto) 0.1 L (0.9-7.0) % Baso % (Auto) 0.2 (0.2-2.0) % Neut # (Auto) 14.4 H (1.4-6.5) 10^3/uL Lymph # (Auto) 1.1 L (1.2-3.8) 10^3/uL [place] # (Auto) 1.3 H (0.3-0.8) 10^3/uL Eos # (Auto) 0.0 (0.0-0.7) 10^3/uL Baso # (Auto) 0.0 (0.0-0.1) 10^3/uL Abs Immat Gran (auto) 0.13 H (0.00-0.03) 10^3/uL Imm/Tot Granulo (auto) 0.8 H (0.0-0.5) % Sodium 138 (136-145) mmol/L Potassium 4.3 (3.5-5.1) mmol/L Chloride 102 (98-107) mmol/L Carbon Dioxide 26.7 (21.0-32.0) mmol/L Anion Gap 13.6 BUN 50.0 H (7.0-18.0) mg/dL Creatinine 1.08 (0.70-1.30) mg/dL Est GFR ( Amer) >60 (>=60) Est GFR (Non-Af Amer) >60 (>=60) BUN/Creatinine Ratio 46.3 Glucose 227 H (74-106) mg/dL Lactate 5.4 H* (0.4-2.0) mmol/L Calcium 8.2 L (8.5-10.1) mg/dL Total Bilirubin 0.2 (0.2-1.0) mg/dL AST 22 (15-37) U/L ALT 20 (16-63) U/L Alkaline Phosphatase 121 H (46-116) U/L Troponin I High Sens 82.8 H* (4.0-76.1) pg/mL Total Protein 5.5 L (6.4-8.2) g/dL Albumin 2.6 L (3.4-5.0) g/dL Globulin 2.9 g/dL Albumin/Globulin Ratio 0.9 POC Glucose 300 H (74-106) mg/dL Blood Type A Positive Antibody Screen Negative Crossmatch See Detail Discharge Plan Discharge Chief Complaint: Fall Clinical Impression: Closed fracture of spinous process of cervical vertebra, Acute GI bleeding Patient Disposition: [facility] Time of Disposition Decision: 11:12 Discharge [place] [facility] [place] Transportation: [place] Prescriptions / Home Meds: No Action clopidogrel 75 mg tablet 75 mg PO .qd furosemide 20 mg tablet 20 mg PO .qd [place]on 24,000-76,000 -120,000 unit capsule,delayed release(DR/EC) 2 cap PO TIDWM Rx Instructions: AND 1 CAPSULE WITH SNACKS DIRECTED nitroglycerin 0.4 mg tablet, sublingual 0.4 mg sublingual Q5M PRN (Reason: chest pain) tamsulosin 0.4 mg capsule 0.4 mg PO QAM Referrals: MARIE TEJEDA [Primary Care Provider] - 1 week
[2023-08-31] MEDS: 0.9 % SODIUM CHLORIDE 1,000 ML 999 ML IV (08:17)
[2023-08-31 08:22] LABS: Basophils Percent Auto 0.2 % (0.2-2.0); Eosinophils Percent Auto 0.1 % (0.9-7.0); Immature Granulocytes Abs Auto 0.13 10^3/uL (0.00-0.03); Immature Granulocytes Pct Auto 0.8 % (0.0-0.5); Lymphocytes Absolute Auto 1.1 10^3/uL (1.2-3.8); Lymphocytes Percent Auto 6.2 % (20.5-60.0); Mean Corpuscular HGB Conc 32.1 g/dL (29.9-35.2); Mean Corpuscular Hemoglobin 25.5 pg (25.9-34.0); Mean Corpuscular Volume 79.4 fL (80.0-94.0); Monocytes Absolute Auto 1.3 10^3/uL (0.3-0.8); Monocytes Percent Auto 7.5 % (1.7-12.0); Neutrophils Absolute Auto 14.4 10^3/uL (1.4-6.5); Neutrophils Percent Auto 85.2 % (43.0-75.0); Platelet Count 187 10^3/uL (150-450); Red Blood Count 2.43 10^6/uL (4.70-6.10); Red Cell Distribution Width 18.6 % (11.0-15.0); White Blood Count 16.8 10^3/uL (4.0-11.0)
--- NOTE | 2023-08-31 08:26 | PC.NURSE ---
pt was up using bathroom, got dizzy and had syncopal episode. hit his head, has a small abrasion to R forehead. unsure of what he hit it on. witnessed by . pt c/o neck pain and L upper rib pain. c-collar in place
[2023-08-31 08:28] LABS: Hematocrit 19.3 % (42.0-54.0); Hemoglobin 6.2 g/dL (14.0-18.0)
[2023-08-31 08:41] LABS: Alanine Aminotransferase 20 U/L (16-63); Albumin Globulin Ratio 0.9; Albumin Level 2.6 g/dL (3.4-5.0); Alkaline Phosphatase 121 U/L (46-116); Anion Gap 13.6; Aspartate Amino Transferase 22 U/L (15-37); BUN Creatinine Ratio 46.3; Bilirubin Total 0.2 mg/dL (0.2-1.0); Calcium 8.2 mg/dL (8.5-10.1); Carbon Dioxide 26.7 mmol/L (21.0-32.0); Chloride 102 mmol/L (98-107); Estimated GFR (African America >60 (>=60); Estimated GFR (Non-African Ame >60 (>=60); Globulin 2.9 g/dL; Glucose 227 mg/dL (74-106); Potassium 4.3 mmol/L (3.5-5.1); Sodium 138 mmol/L (136-145); Total Protein 5.5 g/dL (6.4-8.2)
[2023-08-31 08:46] LABS: Lactate/Lactic Acid 5.4 mmol/L (0.4-2.0); Troponin I High Sensitivity 82.8 pg/mL (4.0-76.1)
[2023-08-31] MEDS: PANTOPRAZOLE SODIUM 40 MG VIAL IV (09:09)
[2023-08-31 12:35] LABS: Lactate/Lactic Acid 2.2 mmol/L (0.4-2.0)
[2023-08-31 12:59] LABS: Occult Blood Positive
== END 2023-08-31 13:50 | disposition short-term general hospital (02) ==
PROVIDERS: Emergency Provider Emergency Medicine Emergency Medical Services; PCP Internal Medicine
DX: K92.2 Gastrointestinal hemorrhage, unspecified (principal); S00.83XA Contusion of other part of head, initial encounter; W18.39XA Other fall on same level, initial encounter; Z79.02 Long term (current) use of antithrombotics/antiplatelets; Z79.4 Long term (current) use of insulin; Z96.41 Presence of insulin pump (external) (internal); I25.10 Atherosclerotic heart disease of native coronary artery without angina pectoris; S12.301A Unspecified nondisplaced fracture of fourth cervical vertebra, initial encounter for closed fracture; S12.401A Unspecified nondisplaced fracture of fifth cervical vertebra, initial encounter for closed fracture; E11.9 Type 2 diabetes mellitus without complications; Z95.5 Presence of coronary angioplasty implant and graft; Z90.81 Acquired absence of spleen; Z90.410 Acquired total absence of pancreas; Z87.891 Personal history of nicotine dependence
CPT/HCPCS: 36415; 36430; 70450; 71045; 72125; 80053; 82948; 83605; 84484; 85025; 86850; 86900; 86901; 93005; 96374; 99285; G0328; P9016

== ENCOUNTER 2023-09-22 11:19 | Outpatient (REF) | payer MEDICARE, OTHER, SELFPAY ==
[2023-09-22 11:36] LABS: Basophils Percent Auto 0.7 % (0.2-2.0); Eosinophils Absolute Auto 0.1 10^3/uL (0.0-0.7); Hematocrit 26.2 % (42.0-54.0); Hemoglobin 8.5 g/dL (14.0-18.0); Immature Granulocytes Abs Auto 0.03 10^3/uL (0.00-0.03); Immature Granulocytes Pct Auto 0.5 % (0.0-0.5); Lymphocytes Absolute Auto 1.1 10^3/uL (1.2-3.8); Lymphocytes Percent Auto 18.9 % (20.5-60.0); Mean Corpuscular HGB Conc 32.4 g/dL (29.9-35.2); Mean Corpuscular Hemoglobin 26.3 pg (25.9-34.0); Mean Corpuscular Volume 81.1 fL (80.0-94.0); Mean Platelet Volume 10.9 fL (9.5-13.5); Monocytes Absolute Auto 0.8 10^3/uL (0.3-0.8); Monocytes Percent Auto 12.6 % (1.7-12.0); Neutrophils Absolute Auto 3.9 10^3/uL (1.4-6.5); Neutrophils Percent Auto 65.3 % (43.0-75.0); Platelet Count 491 10^3/uL (150-450); Red Blood Count 3.23 10^6/uL (4.70-6.10)
[2023-09-22 11:37] LABS: Bilirubin Urine NEGATIVE (NEGATIVE); Blood Urine NEGATIVE (NEGATIVE); Clarity Urine CLEAR (CLEAR); Color Urine LT. YELLOW (YELLOW); Glucose Urine UA 500 mg/dL (NEGATIVE); Ketones Urine NEGATIVE (NEGATIVE); Leukocyte Esterase Urine NEGATIVE (NEGATIVE); Nitrite Urine NEGATIVE (NEGATIVE); Protein Urine NEGATIVE (NEG/TRACE); Specific Gravity Urine 1.015 (1.005-1.025); Urobilinogen Urine 0.2 EU/dL (0.2-1.0); pH Urine 6.5 (5.0-9.0)
[2023-09-22 12:55] LABS: Alanine Aminotransferase 37 U/L (16-63); Albumin Level 2.6 g/dL (3.4-5.0); Alkaline Phosphatase 201 U/L (46-116); Anion Gap 11.5; Aspartate Amino Transferase 52 U/L (15-37); Bilirubin Total 0.4 mg/dL (0.2-1.0); Calcium 8.2 mg/dL (8.5-10.1); Carbon Dioxide 28.9 mmol/L (21.0-32.0); Chloride 98 mmol/L (98-107); Estimated GFR (African America >60 (>=60); Estimated GFR (Non-African Ame >60 (>=60); Glucose 401 mg/dL (74-106); Potassium 4.4 mmol/L (3.5-5.1); Sodium 134 mmol/L (136-145); Total Protein 6.6 g/dL (6.4-8.2)
[2023-09-22 13:08] LABS: Albumin Globulin Ratio 0.7
== END 2023-09-22 11:20 | disposition home or self-care (01) ==
LOC: LAB 11:19
PROVIDERS: PCP Internal Medicine; Visit Provider Internal Medicine
DX: A04.8 Other specified bacterial intestinal infections (principal); R82.998 Other abnormal findings in urine
CPT/HCPCS: 36415; 80053; 81003; 85025; 87086

== ENCOUNTER 2023-10-29 11:20 | Outpatient (REF) | payer MEDICARE, OTHER, SELFPAY ==
[2023-10-31 15:11] LABS: H. pylori Stool Ag, EIA Negative (Negative)
== END 2023-10-29 11:21 | disposition home or self-care (01) ==
LOC: LAB 11:20
PROVIDERS: PCP Internal Medicine
DX: A04.8 Other specified bacterial intestinal infections (principal)
CPT/HCPCS: 87338

== ENCOUNTER 2023-11-05 20:51 | Emergency (ER) | payer OTHER, MEDICARE, SELFPAY ==
[2023-11-05 20:23] VITALS: PULSE 73; TEMP 36.6; O2SAT 97; BMI 20.4
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
--- OUTSIDE RECORDS SUMMARY | 2023-11-05 21:20 | XMS_ITS | CCD ---
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 Name Role Phone MARINO POE Unavailable Unavailable MARIE CASTRO Unavailable Unavailab timmy POE MARINO K Unavailable Unavailable POE, MARINO K Unavailable Unavailable POE, MARINO K Unavailable Unavailable POE, MARINO K Unavailable Unavailable POE, MARINO K Unavailable Unavailable MARIE JULIAN (FEL) Unavailable Unavailable MARIE CASTRO Unavailable Unavailab Marie Santoyo Primary Care Provider [phone] PAUL CONN Admitting Unavailable PAUL CONN Attending Unavailable DUNCAN FRANCIS Consulting Unavailable MARIE CASTRO Primary Care Unavailable JOSE A, DR FRANCO Primary Care Unavailable KESHA DOBSON Admitting Unavailable KESHA DOBSON Attending Unavailable KESHA DOBSON Consulting Unavailable ZHANG, ROLA Consulting Unavailable VASSIENNA, DR SALAZAR Admitting Unavailable VASCHABrody, DR SALAZAR Attending Unavailable MISC, DR CHANEY Primary Care Unavailable VASCHAK, DR SALAZAR Consulting Unavailable VASCHAK, DR SALAZAR Admitting Unavailable VASSIENNA, DR SALAZAR Attending Unavailable BALL, DR FRANCO Primary Care Unavailable VASSIENNA, DR SALAZAR Consulting Unavailable DO Marie Castro Primary Care Provider JO Rivas Emergency Provider [phone] DO Sushant Cordon Admit Provider [phone] DO Sushant Cordon Attending Provider MD Ashwini Conrad Other Provider MD Chuck Velasco Other Provider [phone] MD Anat Perez Other Provider MD Humberto Diaz Attending Provider MD Tru Briceno Other Provider MD Fredi Medrano Admit Provider MD Fredi Medrano Attending Provider KARIN Rios Other Provider Unavailable KARIN Velazquez Other Provider Unavailable Kev RN Gay Other Provider Unavailable KARIN Hernandez Other Provider Unavailable KARIN Bentley Other Provider Unavailable KARIN Henry Other Provider Unavailable MD Chris Holm Other Provider AMADA Zavalaa Guille Other Provider [phone] DO Samantha Wilson Other Provider MD Eric Major Other Provider DO Sushant Cordon Other Provider MD Audi Gaming Other Provider MD Cecily Keen Other Provider AMADA Wright Other Provider MD Daniel Reyes Other Provider MD Roberto Sevilla Other Provider MD Humberto Diaz Other Provider MD Marzena Otto Other Provider DO Gray Gilliam Other Provider [phone] MD Mc Cornejo Other Provider MD Raymundo Angeles Other Provider MARYANN Mccauley Other Provider [phone] MD Indra Guillory Other Provider MD David Fonseca Other Provider MD Hai Aguilera Other Provider MD Esau Corrales Other Provider DO Leda Julian Other Provider DO Guevara Mills R Other Provider MiniDO Kira jeffriesony Guille Other Provider AMADA Marte Other Provider DO Warren Gross Other Provider MD Nayeli Jimenez M Other Provider [phone] AMADA Wolff Other Provider AMADA Pimentel Other Provider MD Vidya Robert Other Provider MD Howard Burrell Other Provider DO Immanuel John Other Provider AMADA Murdock Other Provider DO Vidal Yazid Other Provider KARIN Morillo Other Provider Unavailable Ashwini Conrad Unavailable Marie Castro DO Primary Care Provider DO Marie Castro Primary Care Provider JO Rivas Emergency Provider [phone] DO Sushant Cordon Admit Provider MD Ashwini Conrad Other Provider MD Chuck Velasco Other Provider [phone] MD Anat Perez Other Provider MD Humberto [...] Keen Other Provider AMADA Wright Other Provider [phone] MD Daniel Reyes Other Provider MD Roberto Sevilla Other Provider MD Humberto Diaz Other Provider MD Marzena Otto Other Provider DO Gray Gilliam Other Provider [phone] MD Mc Cornejo Other Provider MD Raymundo Angeles Other Provider ZOILA Mccauley-Arnaldo Westfall Other Provider MD Indra Guillory Other Provider MD David Fonseca Other Provider MD Hai Aguilera Other Provider MD Esau Corrales Other Provider DO Leda Julian Other Provider DO Guevara Mills Other Provider DO Jose Roberto Felder Other Provider AMADA Marte Other Provider DO Warren Gross Other Provider [phone] MD Nayeli Jimenez Other Provider AMADA Wolff Other Provider AMADA Pimentel Other Provider MD Vidya Robert Other Provider MD Howard Burrell Other Provider DO Alvaro Immanuel T Other Provider AMADA Murdock Other Provider DO Vidal Yadontae Other Provider Yisel, RN Erma Other Provider Unavailable MD Ashwini Conrad Attending Provider PROVIDER, UNKNOWN Attending Unavailable PROVIDER, UNKNOWN Admitting Unavailable MD Chuck Velasco Other Provider DO Federico Davis Attending Provider [phone] MD Herminio Lakhani Attending Provider [phone] Anat Perez Unavailable MARIE CASTRO Attending Unavailable MARIE CASTRO Referring Unavailable MARIE CASTRO Referring Unavailable MARIE CASTRO Attending Unavailable MARIE CASTRO Referring Unavailable STALIN ALAMO Attending Unavailable MARIE CASTRO Referring Unavailable DO Marie Castro Primary Care Provider [phone] DO Federico Davis Attending Provider MD Herminio Lakhani Attending Provider MD Audi Gaming Admit Provider [phone] MD Alberto Shearer Other Provider MD Beka Roland Other Provider MD Tru Briceno Other Provider MD Vidya Robert Attending Provider MD Audi Gaming Attending Provider [phone] MARYANN Flores Attending Provider Marie Castro Primary Care Unavailable Audi Gaming Attending Unavailable Amberly, Audi Admitting Unavailable Vaschak, Marie Primary Care Unavailable HoseaxaHerminio Attending Unavailable Olexa, Herminio Admitting Unavailable Vaschak, Marie Primary Care Unavailable Federico Davis Attending Unavailable Federico Davis Admitting Unavailable Humberto Diaz Attending Unavailable Ashwini Conrad Consulting Unavailable Vaschak, Marie Primary Care Unavailable Pardeepm, Sushant Admitting UnavailChuck Apodaca Consulting Anat Kingston Consulting Unavailable Tru Briceno Consulting Unavailable Xavichak, Marie Primary Care Unavailable Amberly, Audi Admitting Unavailable Alahmad, Alaa Attending Unavailable Manfred, Imad Consulting Unavailable Beka Roland Consulting Unavailable Tru Briceno Consulting Unavailable Fredi Medrano Attending Unavaila Lois Malloy Consulting Unavailable Fredi Medrano Admitting Unavaila ble Matthew, Marie Primary Care Unavailable Kavya Velazquez Consulting Unavailable Gay Angulo Consulting Unavailable Buffy Hernandez Consulting Unavailable Fransisca Bentley Consulting Unavailable Diamond Henry Consulting Unavailable Chris Holm Consulting Unavailable Vivian Zavala Consulting Unavailable Samantha Wilson Consulting Unavailable Eric Major Consulting Unavailable Brian Cordonistopher Consulting Unavailabl e Amberly Audi Consulting Unavailable Cecily Keen Consulting Unavailable Nidia Wright Consulting UnavailDaniel [place]cho[place] Consulting Unavailable Roberto Sevilla Consulting Unavailable Humberto Diaz Consulting Unavailable Marzena Otto Consulting Unavailable Gray Gilliam Consulting Unavailable Mc Cornejo Consulting Unavailable Raymundo Angeles Consulting Unavailable Tre Mccauley Consulting Unavailable Indra Guillory Consulting Unavailab David Wilson Consulting Unavailable Hai Aguilera Consulting Unavailable Esau Corrales Consulting Unavailable Leda Julian Consulting Unavailable Guevara Mills Consulting Unavailable Jose Roberto Felder Consulting Unavailable Anat Marte Consulting Unavailable Warren Gross Consulting Unavailable Nayeli Jimenez Consulting Unavailable Nicole Wolff Consulting Unavailable Melisa Pimentel Consulting Unavailable Alahmad, Alaa Consulting Unavailable Howard Burrell Consulting Unavailable Immanuel John Consulting Unavailable Rosario Murdock Consulting Unavailable Mauricio Drake Consulting Unavailable Erma Morillo Consulting Unavailable Marie Castro Primary Care Unavailable Ashwini Conrad Attending Unavailable Ashwini Conrad Admitting Unavailable Ashwini Conrad Attending Unavailable Ashwini Conrad Admitting Unavailable Marie Castro Primary Care Unavailable Candy Flores Attending Unavail able Candy Flores Admitting Unavail able Marie Castro Primary Care Unavailable Provider, None Primary Care Unavailable Arian Balderas Admitting Unavailable Arian Balderas Attending Unavailable Provider, None Primary Care Unavailable Arian Balderas Admitting Unavailable Arian Balderas Attending Unavailable Provider, None Primary Care Unavailable Arian Balderas Admitting Unavailable Arian Balderas Attending Unavailable DO Marie Castro Primary Care Provider ADRIÁN DAVIS Attending Unavailable MARIE CASTRO [facility] Unavailab ADRIÁN Sarmiento Referring Unavailable SAMMY WOLFF Attending Unavailable ADRIÁN DAVIS Referring Unavailable MARIE CASTRO [facility] Unavailab SAMMY Sosa Attending Unavailable SAMMY WOLFF Referring Unavailable MARIE CASTRO [facility] Unavailab DO Marie Santoyo Primary Care Provider Medications Current Medications Medication Drug Class(es) Dates Sig (Normalized) Sig (Original) amLODIPine 5 mg oral tablet (2 sources) [...] on 01/04/22 at 1500, Until Discontinued amylase 611728 unt / lipase 66856 unt / protease 77640 unt delayed release oral capsule (20 sources) Start: 05-07-2023 take 27079-59439 capsules by mouth once Wsppgd-Dmnjwjru-Mzrbktv (Creon) 24,000-76,000 -120,000 unit Capsule,Delayed Release(/Ec) Active 2 CAP PO 3x/Day with meals May 07, 2023 12:00am Start: 04-28-2023 End: 05-07-2023 take 42842-17113 capsules by mouth three times daily Llleas-Mfcljniq-Uzwphuk (Creon) 24,000-76,000 -120,000 unit capsule,delayed release(DR/EC) Discontinued 2 CAP PO Three times daily April 28, 2023 12:00am May 07, 2023 2:27pm take 1 capsule by [facility] [place] three times daily at mealtime wxjymx-xcntplud-rrsotls (CREON) 92699-08430 units delayed release capsule Take 1 capsule by mouth 3 times daily (with meals) 0 Active lipase-protease- amylase (CREON) 86513-50460 units delayed release capsule Take 12,000 Units by mouth take with snacks 0 Active aspirin 81 mg delayed release oral tablet (20 sources) Platelet Aggregation Inhibitor, Nonsteroidal Anti-inflammatory Drug Start: 05-03-2023 End: 05-07-2023 take 81 mg by mouth once daily Aspirin Active 81 MG PO Daily May 07, 2023 12:00am Blood Sugar Diagnostic (5 sources) Start: 09-05-2023 Blood Sugar Diagnostic Active STRIP 120 September 05, 2023 1:00am Fingerstick blood sugar ACHS calcium carbonate 1250 mg oral tablet (1 source) take 1 tablet by mouth three times daily at mealtime calcium carbonate (Oscal) 500 mg calcium (1,250 mg) tablet Take 1 tablet (1,250 mg) by mouth 3 times a day with meals. 0 Active Centrum Silver - (4 sources) Centrum Silver - as directed Orally Active cetirizine hydrochloride 10 mg oral tablet (1 source) Histamine-1 Receptor Antagonist take 1 tablet by mouth once daily cetirizine (ZyrTEC) 10 mg tablet Take 1 tablet (10 mg) by mouth once daily. 0 Active Cholecalciferol (7 sources) Vitamin D Start: 10-26-2023 take 100 ug by mouth once daily Cholecalciferol (Vitamin D3) Active 100 MCG PO Daily October 26, 2023 12:00am Start: 08-31-2023 End: 10-28-2023 take 1 tablet by mouth once daily Cholecalciferol (Vitamin D3) (Vitamin D3) 50 mcg (2,000 unit) tablet Discontinued 50 MCG PO Daily August 31, 2023 1:00am October 28, 2023 2:44pm take 1 capsule by md ut once daily cholecalciferol (Vitamin D3) 25 MCG (1000 UT) capsule Take 1 capsule (25 mcg) by mouth once daily. 0 Active clopidogrel 75 mg oral tablet (6 sources) P2Y12 Platelet Inhibitor Start: 08-16-2023 End: 08-15-2024 take 75 mg by mouth once daily Clopidogrel Active 75 MG PO Daily August 31, 2023 1:00am Creon 6000 UNIT (4 sources) Creon 6000 UNIT as directed Orally Active glucagon (rdna) 1 mg injection (1 [...] (3 mL) Insulin Pen (20 sources) Start: 09-03-2023 End: 10-28-2023 Insulin Aspart U-100 (Novolog Flexpen U-100 Insulin) 100 unit/mL (3 mL) Insulin Pen Discontinued 0 UNIT SUBCUT 3x/Day with meals 0 September 03, 2023 1:00am October 28, 2023 2:44pm Start: 09-03-2023 Insulin Aspart U-100 (Novolog Flexpen U-100 Insulin) 100 unit/mL (3 mL) Insulin Pen Active 0 UNIT SUBCUT 3x/Day with meals 0 September 03, 2023 1:00am Start: 09-03-2023 Insulin Aspart U-100 (Novolog Flexpen U-100 Insulin) 100 unit/mL (3 mL) Insulin Pen Active 0 UNIT SUBCUT 3X/Day with meals and bedtime 0 September 03, 2023 1:00am Start: 05-07-2023 End: 09-05-2023 inject 1 dose by subcutaneous injection at bedtime Insulin Aspart U-100 (Novolog Flexpen U-100 Insulin) 100 unit/mL (3 mL) Insulin Pen Discontinued 1 sliding scale dose SUBCUT Before meals and at bedtime May 07, 2023 12:00am September 05, 2023 3:28pm Start: 05-07-2023 End: 09-05-2023 Insulin Aspart U-100 (Novolo g Flexpen U-100 Insulin) 100 unit/mL (3 mL) Insulin Pen Discontinued 0 UNITS SUBCUT 3x/Day with meals May 07, 2023 12:00am September 05, 2023 3:28pm Start: 05-07-2023 inject 1 dose by sub [...] 3X/Day with meals and bedtime 0 May 02, 2023 11:00pm May 03, 2023 4:10pm Start: 05-03-2023 End: 05-03-2023 Insulin Aspart U-100 (Novolo g Flexpen U-100 Insulin) 100 unit/mL (3 mL) Insulin Pen Discontinued 0 UNITS SUBCUT 3x/Day with meals May 02, 2023 11:00pm May 03, 2023 [...] Basal Dose (Patient Supplied) (1 source) Start: 2 Insulin Pump - Basal Dose (Patient Supplied) Insulin Pump - Bolus Dose (Patient Supplied) (1 source) Start: 2 Insulin Pump - Bolus Dose (Patient Supplied) lipase/protease/tre lase (CREON ORAL) (2 sources) take 18945 mg by mouth three times daily lipase/protease/amyla se (CREON ORAL) Take 24,000 mg by mouth 3 times a day. 0 Active loratadine 10 mg oral tablet (6 sources) Start: 4 take 1 tablet by mouth once daily Loratadine (Claritin) 10 mg tablet Active 1 TAB PO Daily October 26, 2023 12:00am FreeTextSi tablet Orally Once a day; Note: Source Status: Taking; Provider: oHuston Maradiaga ( ) take 1 tablet by sondra every twenty-four hours Claritin 10 MG 1 tablet Orally Once a day Active lutein 6 mg oral capsule (6 sources) Start: 10-26-2023 take 6 mg by mouth once daily Lutein Active 6 MG PO Daily October 26, 2023 12:00am give with meal/snack take 1 capsule by mo [facility] every twenty-four hours Lutein 6 MG 1 [...] 1 tablet by mouth daily 0 Active Multivit With Min-Folic Acid (Centrum Adults) 12 mcg tablet,chewable (1 source) Start: 10-26-2023 take 1 tablet by mouth once daily Multivit With Min-Folic Acid (Centrum Adults) 12 mcg tablet,chewable Active 1 TAB PO Daily October 26, 2023 12:00am multivit-min/ferrous fumarate (MULTI VITAMIN ORAL) (1 source) take 1 tablet by mouth once daily multivit-min/ferrous fumarate (MULTI VITAMIN ORAL) Take 1 tablet by mouth once daily. 0 Active Multivitamin-Minerals -Lutein (Multivitamin 50 Plus) tablet (5 sources) Start: 08-31-2023 Multivitamin-Mineral s-Lutein (Multivitamin 50 Plus) tablet Active 1 TAB PO Daily August 31, 2023 1:00am ondansetron (ZOFRAN-ODT) disintegrating tablet 4 mg (1 source) Start: 01-02-2022 ondansetron (ZOFRAN-ODT) disintegrating tablet 4 mg pantoprazole 40 mg delayed release oral tablet (6 sources) Proton Pump Inhibitor Start: 09-03-2023 take 1 tablet by mouth twice daily, then take 1 tablet by mouth once daily Pantoprazole (Protonix) 40 mg tablet,delayed release (DR/EC) Active 40 MG PO Twice daily 180 September 03, 2023 1:00am 40 mg p.o. twice daily x 2 weeks, followed by 40 mg p.o. daily. Please dispense accordingly. Start: 01-07-2022 take 1 tablet by sondra th once daily before breakfast pantoprazole (PROTONIX) 40 MG tablet Take 1 tablet by mouth every morning (before breakfast) 90 tablet 1 01/07/2022 Active Start: 01-07-2022 take 1 tablet by sondra th once daily before breakfast pantoprazole (PROTONIX) 40 MG tablet Take 1 tablet by mouth every morning (before breakfast) 90 tablet 1 01/07/2022 Active pantoprazole (PROTONIX) 40 mg in [...] Hcl Active 30 MG PO Daily May 07, 2023 12:00am Start: 01-05-2022 take 30 mg by mouth [...] g tamsulosin hydrochloride 0.4 mg oral capsule (20 sources) alpha-Adrenergic Sarah Start: 04-28-2023 End: 08-16-2023 take 0.4 mg by mouth once daily Tamsulosin Active 0.4 MG PO Daily May 07, 2023 12:00am Vitamin D3 [id number] UNIT/GM (4 sources) Vitamin D3 6275356 UNIT/GM as directed Active Completed/Discontinued Medications Medication Drug Class(es) Dates Sig (Normalized) Sig (Original) acetaminophen 500 mg oral tablet (20 sources) Start: 05-03-2023 End: 08-31-2023 take 500 mg by mouth every six hours Acetaminophen Discontinued 500 MG PO Every 6 hours May 07, 2023 12:00am August 31, 2023 3:53pm Start: 05-03-2023 End: 05-03-2023 take 2 tablets by mouth every four hours Acetaminophen (Tylenol) 325 mg Tablet Discontinued 650 MG PO Q4H 0 May 03, 2023 12:00am May 03, 2023 5:10pm Start: 01-06-2022 acetaminophen (TYLENOL) tablet 1,000 mg acetaminophen 325 mg / HYDROcodone bitartrate 5 mg oral tablet (20 sources) Opioid Agonist Start: 05-03-2023 End: 08-31-2023 take 1 tablet by mouth every four hours Hydrocodone-Acetaminophen Discontinued 1 TAB PO Q4H 20 May 07, 2023 August 31, 2023 4:51pm take 1-2 tablets by mouth every four to six hours as needed HYDROcodone-Acetaminophen 5-325 MG 1-2 t ablet as needed Orally every 4-6 hrs for 7 days ROSEANN # [id number] Active take 1 tablet by sondra th every six hours HYDROcodone-Acetaminophen 5-325 MG 1 tab let as needed Orally every 6 hrs Active aluminum hydroxide 40 mg/ml / magnesium hydroxide 40 mg/ml / simethicone 4 mg/ml oral suspension (11 sources) Start: 05-03-2023 End: 05-03-2023 take 1 mL by mouth every four hours Alum-Mag Hydroxide-Simeth (Mag-Al Plus) 200-200-20 mg/5 mL Suspension Discontinued 30 ML PO Q4H May 03, 2023 12:00am May 03, 2023 5:10pm ascorbic acid 500 mg oral tablet (20 sources) Vitamin C Start: 05-03-2023 End: 09-05-2023 take 1 tablet by mouth once daily Ascorbic Acid (Vitamin C) (Vitamin C) 500 mg Tablet Discontinued 500 MG PO Daily May 07, 2023 12:00am September 05, 2023 3:28pm End: 08-16-2023 take 1 tablet by mouth once daily ascorbic acid (Vitamin C) 100 mg tablet Take 1 tablet (100 mg) by mouth once daily. 0 08/16/2023 Discontinued (Therapy completed) atorvastatin 80 mg oral tablet (20 sources) HMG-CoA Reductase Inhibitor Start: 05-03-2023 End: 10-28-2023 take 80 mg by mouth once daily in the evening Atorvastatin Discontinued 80 MG PO Every evening May 07, 2023 12:00am October 28, 2023 2:45pm bisacodyl 10 mg rectal suppository (20 sources) Stimulant Laxative Start: 05-03-2023 End: 05-03-2023 Bisacodyl Discontinued 10 MG AL Daily 0 May 03, 2023 12:00am May 03, 2023 5:10pm Start: 05-03-2023 End: 05-03-2023 take 10 mg by mouth once daily Bisacodyl Discontinued 10 MG PO Daily 0 May 03, 2023 12:00am May 03, 2023 5:10pm Start: 01-02-2022 take 10 mg rectal ro felicia once daily as needed 10 mg, Rectal, DAILY PRN, Starting on Wed01/02/22 at 2231, Until Discontinued, Constipation First line therapy for constipation bismuth subsalicylate 17.5 mg/ml oral suspension (5 sources) Bismuth Start: 09-05-2023 End: 10-21-2023 take 300 mg by mouth four times daily Bismuth Subsalicylate (Stomach Relief) 262 mg/15 mL Suspension Discontinued 300 MG PO Four times daily 824.429 September 05, 2023 1:00am October 21, 2023 8:40am Calcium Carbonate-Vitamin D3 (Oyster Shell Calcium-Vit D3) 500 mg-5 mcg (200 unit) Tablet (20 sources) Start: 05-07-2023 End: 08-31-2023 take 1 tablet by mouth once at mealtime Calcium Carbonate-Vitamin D3 (Oyster Shell Calcium-Vit D3) 500 mg-5 mcg (200 unit) Tablet Discontinued 1 TAB PO 3x/Day with meals May 07, 2023 12:00am August 31, 2023 4:56pm Start: 05-07-2023 take 1 tablet by sondra [...] Active 1 TAB PO 3x/Day with meals 0 October 23rd, 2023 12:00am calcium chloride 0.0014 meq/ml / potassium chloride 0.004 meq/ml / sodium chloride 0.103 meq/ml / sodium lactate 0.028 meq/ml injectable solution (1 source) Start: 01-02-2022 End: 01-05-2022 IntraVENous, at 125 mL/hr, CONTINUOUS, Starting on Wed01/02/22 at 2300 collagenase Clostridium histolyticum (4 sources) Start: 04-16-2020 Xiaflex Apr, 0.01 mg cyclobenzaprine hydrochloride 5 mg oral tablet (11 sources) Muscle Relaxant Start: 05-07-2023 End: 08-31-2023 take 5 mg by mouth every eight hours Cyclobenzaprine Discontinued 5 MG PO Q8H May 07, 2023 12:00am August 31, 2023 4:51pm take 1 tablet by sondra th three times daily as needed for muscle spasms cyclobenzaprine (Flexeril) 5 mg tablet T tom 1 tablet (5 mg) by mouth 3 times a day as needed for muscle spasms. 0 Active 0.4 ml enoxaparin sodium 100 mg/ml prefilled syringe (12 sources) Low Molecular Weight Heparin Start: 05-03-2023 End: 05-07-2023 Enoxaparin (Lovenox) 40 mg/0.4 mL Syringe Discontinued 40 MG SUBCUT DAILY@1000 0 May 03, 2023 12:00am May 07, 2023 2:27pm Start: 01-03-2022 enoxaparin (LO VENOX) injection 40 mg ferrous sulfate 324 mg delayed release oral tablet (11 sources) Start: 05-07-2023 End: 08-31-2023 take 324 mg by mouth once daily Ferrous Sulfate Discontinued 324 MG PO Daily May 07, 2023 12:00am August 31, 2023 4:51pm take 1 tablet by sondra th once daily at mealtime ferrous sulfate, 325 mg ferrous sulfate, (iron) tablet Take 1 tablet (325 mg) by mouth once daily with a meal. 0 Active 100 ml fluconazole 2 mg/ml injection (1 source) Azole Antifungal Start: 01-02-2022 End: 01-02-2022 fluconazole (DIFLUCAN) 400 mg IVPB furosemide 20 mg oral tablet (11 sources) Loop Diuretic Start: 08-31-2023 End: 09-05-2023 Furosemide Discontinued MG TABLET August 31, 2023 1:00am September 05, 2023 3:28pm Start: 08-16-2023 End: 10-21-2023 take 20 mg by mouth once daily Furosemide Discontinued 20 MG PO Daily 0 90 September 03, 2023 11:53am October 21, 2023 8:40am Insulin Aspart U-100 (Novolo g Flexpen U-100 Insulin) 100 unit/mL (3 mL) insulin pen (20 sources) Start: 05-03-2023 End: 05-07-2023 Insulin Aspart [...] breakfast and lunch April 28, 2023 12:00am Insulin Aspart U-100 (Novolog U-100 Insulin Aspart) 100 unit/mL solution (5 sources) Start: 08-31-2023 End: 09-05-2023 Insulin Aspart U-100 (Novolog U-100 Insulin Aspart) 100 unit/mL solution Discontinued 50 UNIT CNTSUBQINF Daily August 31, 2023 1:00am September 05, 2023 3:28pm per insulin pump 3 ml insulin glargine 100 unt/ml pen injector (20 sources) Insulin Analog Start: 09-03-2023 End: 10-28-2023 Insulin Glargine (Lantus Solostar U-100 Insulin) 100 unit/mL (3 mL) Insulin Pen Discontinued 24 UNIT SUBCUT Daily 0 September 03, 2023 1:00am October 28, 2023 2:43pm Start: 08-31-2023 inject 8 [IU] by sub cutaneous injection at bedtime Insulin Glargine (Lantus Solostar U-100 Insulin) 100 unit/mL (3 mL) Insulin Pen Active 8 UNIT SUBCUT Bedtime August 31, 2023 1:00am Start: 05-03-2023 End: 08-31-2023 inject 7 [IU] by subcutaneous injection twice daily Insulin Glargine (Lantus Solostar U-100 Insulin) 100 unit/mL (3 mL) Insulin Pen Discontinued 7 UNITS SUBCUT Twice daily 4.2 30 May 07, 2023 12:00am August 31, 2023 4:55pm Start: 04-28-2023 End: 05-03-2023 Insulin Glargine (Lantus Renetta ostar U-100 Insulin) 100 unit/mL (3 mL) insulin pen Discontinued 18 UNIT SUBCUT Bedtime April 28, 2023 12:00am May 03, 2023 5:10pm inject 24 [IU] by melchor bcutaneous injection once daily at bedtime insulin glargine (Lantus U-100 Insulin) 100 unit/mL injection Inject 24 Units under the skin once daily at bedtime. Take as directed per insulin instructions. 0 Active insulin regular (HUMULIN R;NOVOLIN R) 100 Units in sodium chloride 0.9 % 100 mL infusion (1 source) Start: 01-02-2022 End: 01-03-2022 insulin regular (HUMULIN R;NOVOLIN R) 100 Units in sodium chloride 0.9 % 100 mL infusion iohexol (OMNIPAQUE 240) injection 100 mL (1 source) Start: 01-05-2022 End: 01-05-2022 iohexol (OMNIPAQUE 240) injection 100 mL lactobacillus acidophilus [id number] unt oral capsule (5 sources) Start: 08-31-2023 End: 09-05-2023 take 10 capsules by mouth once daily Lactobacillus Acidophilus (Probacap) 10 billion cell capsule Discontinued 100 MMU CELLS PO Daily August 31, 2023 1:00am September 05, 2023 3:28pm lidocaine hydrochloride 10 mg/ml injectable solution (11 sources) Antiarrhythmic, Amide Local Anesthetic Start: 05-03-2023 End: 05-03-2023 Lidocaine Hcl (Xylocaine) 10 mg/mL (1 %) Solution Discontinued 0.1 ML INTRADERMA Pre-Op 0 May 03, 2023 12:00am May 03, 2023 5:10pm Magnesium Hydroxide (11 sources) Start: 05-03-2023 End: 05-07-2023 take 1 [...] 400 mg 50 ml magnesium sulfate 40 mg/ml injection (1 source) Start: 01-05-2022 End: 01-05-2022 magnesium sulfate 2000 mg in 50 mL IVPB premix methocarbamol (ROBAXIN) 750 mg in dextrose 5 % 100 mL IVPB (1 source) Start: 01-02-2022 End: 01-06-2022 750 mg, IntraVENous, at 200 mL/hr, Administer over 30 Minutes, EVERY 6 HOURS, First dose on Wed01/02/22 at 2300 metroNIDAZOLE 500 mg oral tablet (5 sources) Nitroimidazole Antimicrobial Start: 09-05-2023 End: 10-21-2023 take 500 mg by mouth three times daily Metronidazole Discontinued 500 MG PO Three times daily 36 September 05, 2023 1:00am October 21, 2023 8:41am nitroglycerin 0.4 mg sublingual tablet (20 sources) Nitrate Vasodilator Start: 05-03-2023 End: 06-22-2024 Nitroglycerin Discontinued 0.4 MG SUBLINGUAL Q5M July 16, 2023 1:00am September 05, 2023 3:28pm until response; do not exceed 3 doses per event Nitroglycerin 0. 4 MG as directed Sublingual Active piperacillin-tazobactam (ZOS YN) 3,375 mg in dextrose 5 % 50 mL IVPB (mini-bag) (2 sources) Start: 01-02-2022 End: 01-06-2022 piperacillin-tazobactam (ZOS YN) 3,375 mg in dextrose 5 % 50 mL IVPB (mini-bag) Start: 01-02-2022 End: 01-02-2022 piperacillin-tazobactam (ZOS YN) 3,375 mg in dextrose 5 % 50 mL IVPB (mini-bag) potassium bicarbonate 20 meq effervescent oral tablet (1 source) Start: 01-07-2022 End: 01-07-2022 potassium bicarb-citric acid (EFFER-K) effervescent tablet 40 mEq microencapsulated potassium chloride 20 meq extended release oral tablet (13 sources) Start: 05-03-2023 End: 05-03-2023 Potassium Chloride (Klor-Con M20) 20 mEq Tablet,Er Particles/Crystals Discontinued 40 MEQ PO STAT 0 May 03, 2023 12:00am May 03, 2023 5:10pm Start: 01-06-2022 End: 01-06-2022 potassium chloride (KLOR-CON [...] IVPB Sennosides (Senna Laxative) 8.6 mg Tablet (11 sources) Start: 05-03-2023 End: 05-03-2023 take 2 [...] 5:10pm Start: 05-03-2023 take 2 tablets by mo uth at bedtime Sennosides (Senna Laxative) 8.6 mg Tablet Active 2 TAB PO Bedtime 0 May 03, 2023 12:00am tetracycline hydrochloride 500 mg oral capsule (10 sources) Tetracycline-class Antimicrobial Start: 09-06-2023 End: 10-21-2023 take 500 mg by mouth four times daily Tetracycline Discontinued 500 MG PO Four times daily September 06, 2023 1:00am October 21, 2023 8:42am Start: 09-05-2023 End: 10-21-2023 take 500 mg by mouth four times daily Tetracycline Discontinued 500 MG PO Four times daily 112 September 05, 2023 1:00am October 21, 2023 8:42am ticagrelor 90 mg oral tablet (8 sources) Start: 07-16-2023 End: 09-05-2023 take 1 tablet by mouth twice daily Ticagrelor (Brilinta) 90 mg tablet Discontinued 90 MG PO Twice daily 180 July 16, 2023 1:00am September 05, 2023 3:28pm triamcinolone acetonide 1 mg/ml topical cream (20 sources) Corticosteroid Start: 05-03-2023 End: 10-28-2023 Triamcinolone Acetonide Discontinued 1 APPLIC TOPICAL Four times daily May 07, 2023 12:00am October 28, 2023 10:38am Start: 04-16-2020 Kenalog -40 mg Apr, 40 mg Triamcinolone Ac etonide 0.1 % 1 application Externally Two times a Week Active Triamcinolone Ac etonide 0.1 % 1 application Externally Two times a Week Active valsartan 160 mg oral tablet (20 sources) Angiotensin 2 Receptor Sarah Start: 09-03-2023 End: 10-28-2023 take 80 mg by mouth once daily Valsartan Discontinued 80 MG PO Daily September 03, 2023 11:53am October 28, 2023 2:46pm Start: 05-07-2023 End: 09-05-2023 take 160 mg by mouth once daily Valsartan Discontinued 160 MG PO Daily May 07, 2023 12:00am September 05, 2023 3:28pm Start: 05-03-2023 End: 05-07-2023 take 80 mg by mouth once daily Valsartan Discontinued 80 MG PO Daily 0 May 03, 2023 12:00am May 07, 2023 2:27pm Problems Active Problems Problem Classification Problem Date Documented Da te Episodic/Chronic Acute myocardial infarction (13 sources) Myocardial infarction; Translations: [Non-ST elevation (NSTEMI) myocardial infarction] Onset: 3 05-25-2023 Chronic Administrative/social admission (19 sources) Other reduced mobility; Translations: [Impaired mobility and activities of daily living] Onset: 3 05-03-2023 Episodic Anxiety disorders (14 sources) Mixed anxiety and depressive disorder; Translations: [Anxiety disorder, unspecified] Onset: 3 05-04-2023 Chronic Cancer of pancreas (1 source) Malignant neoplasm of body of pancreas; Translations: [Malignant neoplasm of body of pancreas] Onset: Chronic Cardiac dysrhythmias (15 sources) Paroxysmal ventricular tachycardia; 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] 04-29-2023 Chronic Coronary atherosclerosis 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; Translations: [Atherosclerotic heart disease of [place] coronary artery without angina pectoris] Onset: 3 04-30-2023 Chronic Deficiency and other anemia (10 sources) Anemia; Translations: [Anemia, unspecified] 05-04-2023 Episodic Deficiency and other anemia (1 source) Iron deficiency anemia, unspecified; Translations: [Iron deficiency anemia, unspecified] Onset: 4 Episodic Diabetes mellitus with complications (13 sources) Diabetes mellitus; Translations: [Uncontrolled diabetes mellitus] 05-04-2023 Chronic Diabetes mellitus without complication (20 sources) Secondary diabetes mellitus; Translations: [Diabetes mellitus due to underlying condition without complications] Onset: 2 Chronic Disorders of lipid metabolism (1 source) Mixed hyperlipidemia; Translations: [Mixed hyperlipidemia] Onset: 3 06-23-2023 Chronic Esophageal disorders (5 sources) Lewis's esophagus; 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] 10-21-2023 Chronic Essential hypertension (20 sources) Hypertensive disorder; Translations: [Essential (primary) hypertension] Onset: 3 05-04-2023 Chronic Fracture of neck of femur (hip) (20 sources) Closed intertrochanteric fracture; Translations: [Displaced intertrochanteric fracture of right femur, initial encounter for closed fracture] Onset: 3 04-28-2023 Episodic Gastroduodenal ulcer (except hemorrhage) (10 sources) Perforation of stomach; Translations: [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] Onset: 2 Chronic Gastroduodenal ulcer (except hemorrhage) (1 source) Acute gastric ulcer with perforation; Translations: [Acute gastric ulcer with perforation] Episodic Gastrointestinal hemorrhage (7 sources) Melena; Translations: [Melena] Onset: 4 09-14-2023 Episodic Genitourinary symptoms and ill-defined conditions (4 sources) Hematuria, unspecified; Translations: [HEMATURIA UNSPECIFIED] Onset: 2 Episodic Hyperplasia of prostate (14 sources) Benign prostatic hyperplasia; Translations: [Benign prostatic hyperplasia without lower urinary tract symptoms] Onset: 3 05-04-2023 Chronic Intestinal infection (4 sources) Infection caused by Helicobacter pylori; Translations: [Other specified bacterial intestinal infections] 10-21-2023 Episodic Mood disorders (1 source) Mood disorders; Translations: [Depression, unspecified] Onset: 3 Neoplasms of unspecified nature or uncertain behavior (1 source) Neoplasm of unspecified behavior of digestive system; Translations: [Neoplasm of unspecified behavior of digestive system] Onset: 8 Episodic Nutritional deficiencies (14 sources) Deficiency of macronutrients; Translations: [Mild protein-calorie malnutrition] Onset: 3 05-04-2023 Chronic Osteoporosis (14 sources) Osteoporosis; Translations: [Age-related osteoporosis without current pathological fracture] Onset: 3 05-04-2023 Chronic Other and ill-defined heart disease (11 sources) Left ventricular systolic dysfunction; Translations: [Other ill-defined heart diseases] 04-29-2023 Chronic Other and ill-defined heart disease (8 sources) Other ill-defined heart diseases; Translations: [Heart disease, unspecified] Onset: 3 05-03-2023 Chronic Other connective tissue disease (4 sources) Dupuytren contracture of right palm; Translations: [Palmar fascial fibromatosis [Dupuytren]] Episodic Other fractures (5 sources) Fracture of spinous process of cervical vertebra; Translations: [Fracture of neck, unspecified, initial encounter] 09-14-2023 Episodic Other fractures (5 sources) Fracture of cervical spine; Translations: [Fracture of neck, unspecified, initial encounter] 09-14-2023 Episodic Other fractures (1 source) Fracture of neck, unspecified, initial encounter; Translations: [Fracture of neck, unspecified, initial encounter] Onset: 4 Episodic Other fractures (4 sources) Closed fracture of vertebral column; Translations: [Closed fracture of vertebra] 09-28-2023 Episodic Other fractures (2 sources) Closed fracture of fifth cervical vertebra; Translations: [Unspecified displaced fracture of fifth cervical vertebra, initial encounter for closed fracture] 09-28-2023 Episodic Other fractures (2 sources) Unspecified displaced fracture of fifth cervical vertebra, initial encounter for closed fracture; Translations: [Closed fracture of fifth cervical vertebra] 09-28-2023 Episodic Other gastrointestinal disorders (2 sources) Viscus [...] upper limb] Chronic Other nervous system disorders (11 sources) Hip pain; Translations: [Other acute postprocedural [...] (BMI) 20.0-20.9, adult] Onset: 3 08-16-2023 Episodic Unclassified (1 source) CONTACT W/AND (SUSP) [...] [UPPER ABDOMINAL PAIN, UNSPECIFIED] Onset: 01-02-2022 Episodic Deficiency and other anemia (4 sources) [...] [Other specified health status] Onset: 04-28-2023 Episodic Residual codes; unclassified (2 sources) Body mass index (BMI) 20.0-20.9, adult; Translations: [Body mass index (BMI) 20.0-20.9, adult] Onset: 06-23-2023 Episodic Unclassified (2 sources) Onset: 05-25-2023 Resolved: 08-16-2023 05-25-2023 Results Test Name Value Interpretation Reference Range Facility Glucose Glucometer (BldC) [M ass/Vol]Ordered By: Candy Flores on 09-27-2023 Glucose [Mass/Vol] 71 mg/dL [facility] Comment on above: Random Glucose Refer ence Range is dependent on time and content of last meal. Glucose of more than 200 mg/dL in a nonstressed, ambulatory subject supports the diagnosis of Diabetes Mellitus. Glucose Poct Glucometerson 0 09-27-2023 Glucose [Mass/Vol] 71 mg/dL Normal [facility] Comment on above: Result Comment: [place] om Glucose Reference Range is dependent on time and content of last meal. Glucose of more than 200 mg/dL in a nonstressed, ambulatory subject supports the diagnosis of Diabetes Mellitus.PERFORMED BY:[address] [address] [place], [place] [id number] MEDICAL DIRECTORAIRAM MAST M.D. Performed By: #### G LULS ####Point of Care testing, XR cervical spine 2Von 09-23 XR cervical spine 2V Normal [facility] Glucose Glucometer (BldC) [M ass/Vol]Ordered By: Vidya Robert on 09-06-2023 Glucose [Mass/Vol] 268 mg/dL [facility] Comment on above: Random Glucose Refer ence Range is dependent on time and content of last meal. Glucose of more than 200 mg/dL in a nonstressed, ambulatory subject supports the diagnosis of Diabetes Mellitus. Glucose Poct Glucometerson 0 09-06-2023 Glucose [Mass/Vol] 268 mg/dL Normal [facility] Comment on above: Result Comment: [place] [facility] Glucose Reference Range is dependent on time and content of last meal. Glucose of more than 200 mg/dL in a nonstressed, ambulatory subject supports the diagnosis of Diabetes Mellitus.PERFORMED BY:[address] [address] [place] [place], [place] [phone] MEDICAL DIRECTORAIRAM MAST M.D. Performed By: #### G LULS ####Point of Care testing, Commemt1 Glu2: Cleaned Meter Normal [facility] Comment on above: Result Comment: PERF ORMED BY:[address] [address] [place], [place] [phone] MEDICAL DIRECTORAIRAM MAST M.D. Performed By: #### G LULS ####Point of Care testing, Glucose [Mass/Vol] 327 mg/dL Normal [facility] Comment on above: Result Comment: [place] [facility] Glucose Reference Range is dependent on time and content of last meal. Glucose of more than 200 mg/dL in a nonstressed, ambulatory subject supports the diagnosis of Diabetes Mellitus. Performed By: #### G LULS ####Point of Care testing, Commemt1 Glu2: Cleaned Meter [facility] Comment on above: Result Comment: PERF ORMED BY:[address] [address] [address] [place]ORDON[place]alisKESH[place], [place] [phone] MEDICAL DIRECTORAIRAM MAST M.D. Performed By: #### G LULS ####Point of Care testing, Glucose [Mass/Vol] 180 mg/dL Normal [facility] Comment on above: Result Comment: [place] Glucose Reference Range is dependent on time and content of last meal. Glucose of more than 200 mg/dL in a nonstressed, ambulatory subject supports the diagnosis of Diabetes Mellitus. Performed By: #### G LULS ####Point of Care testing, Glucose [Mass/Vol] 74 mg/dL Normal [facility] Comment on above: Result Comment: [place] Glucose Reference Range is dependent on time and content of last meal. Glucose of more than 200 mg/dL in a nonstressed, ambulatory subject supports the diagnosis of Diabetes Mellitus.PERFORMED BY:[address] [address] [place], [place] [phone] MEDICAL DIRECTORAIRAM MAST M.D. Performed By: #### G LULS ####Point of Care testing, No Panel InformationOrdered By: Vidya Robert on 09-06-2023 Bedside Glucose Comment Glu2: cleaned meter [facility] Erythrocyte distribution wid th Auto (RBC) [Ratio]Ordered By: [employer] on 09-05-2023 Erythrocyte distribution width (RBC) [Ratio] 16.7 % 12.0-14.8 [facility] Glucose Poct Glucometerson 0 09-05-2023 Glucose [Mass/Vol] 134 mg/dL Normal [facility] Comment on above: Result Comment: [facility] Glucose Reference Range is dependent on time and content of last meal. Glucose of more than 200 mg/dL in a nonstressed, ambulatory subject supports the diagnosis of Diabetes Mellitus.PERFORMED BY:[address] [address] [address] [place]ENDANO[address]ysOdalisKESHAT[place], [place] [phone] MEDICAL HUMBLE MAST M.D. Performed By: #### G LULS ####Point of Care testing, Glucose [Mass/Vol] 99 mg/dL Normal [facility] Comment on above: Result Comment: [facility] Glucose Reference Range is dependent on time and content of last meal. Glucose of more than 200 mg/dL in a nonstressed, ambulatory subject supports the diagnosis of Diabetes Mellitus.PERFORMED BY:[address] [address]alisKESH[place], [place] [phone] MEDICAL HUMBLE MAST M.D. Performed By: #### G LULS ####Point of Care testing, Glucose [Mass/Vol] 264 mg/dL Normal [facility] Comment on above: Result Comment: [facility] Glucose Reference Range is dependent on time and content of last meal. Glucose of more than 200 mg/dL in a nonstressed, ambulatory subject supports the diagnosis of Diabetes Mellitus.PERFORMED BY:[address] [address] [address] CARDONAWuKESHATOA [place], [place] [phone] MEDICAL HUMBLE MAST M.D. Performed By: #### G LULS ####Point of Care testing, Glucose [Mass/Vol] 125 mg/dL Normal [facility] Comment on above: Result Comment: [facility] Glucose Reference Range is dependent on time and content of last meal. Glucose of more than 200 mg/dL in a nonstressed, ambulatory subject supports the diagnosis of Diabetes Mellitus.PERFORMED BY:[address] [address] [place] [phone] MEDICAL DIRECTORAIRAM MAST M.D. Performed By: #### G RIOS ####Point of Care testing, Hematocrit Auto (Bld) [Volum e fraction]Ordered By: [employer] on 09-05-2023 Hematocrit (Bld) [Volume fraction] 22.7 % 38.8-50.0 [facility] Hemoglobin [Mass/volume] in BloodOrdered By: [employer] on 09-05-2023 Hemoglobin (Bld) [Mass/Vol] 7.8 g/dL 13.0-17.0 [facility] Hemogram CBC Without Diffon 09-05-2023 Erythrocyte distribution width (RBC) [Ratio] 16.7 % High 12.0-14.8 [facility] Comment on above: Performed By: #### C BCNO ####[address] [address] [facility] Hematocrit (Bld) [Volume fraction] 22.7 % Low 38.8-50.0 [facility] Comment on above: Performed By: #### C BCNO ####[address] [address] [facility] Hemoglobin (Bld) [Mass/Vol] 7.8 g/dL Low 13.0-17.0 [facility] Comment on above: Performed By: #### C BCNO ####[address] [address] [facility] MCH (RBC) [Entitic mass] 28.7 pg Normal 27.5-35.2 [facility] Comment on above: Performed By: #### C BCNO ####[address] [address] [facility] MCV (RBC) [Entitic vol] 84.1 fL Normal 83.5-101 [facility] Comment on above: Performed By: #### C BCNO ####[address] [address] [facility] Mean Corpuscular HGB Conc 34.1 g/dL Normal 32.5-35.6 [facility] Comment on above: Performed By: #### C BCNO ####[id number] [place] [address] [facility] Platelet mean volume (Bld) [Entitic vol] 9.8 fL Normal 6.6-10.1 [facility] Comment on above: Result Comment: PERF ORMED BY:[address] [place]dalysOdalisKES[place], [place] [phone] MEDICAL DIRECTORAIRAM MAST M.D. Performed By: #### C BCNO ####[address] [address] [facility] Platelets (Bld) [#/Vol] 236 10*3/uL Normal 150-450 [facility] Comment on above: Performed By: #### C BCNO ####[address] [address] [facility] RBC (Bld) [#/Vol] 2.70 10*6/uL Low 3.90-5.60 [facility] Comment on above: Performed By: #### C BCNO ####[address] [address] [facility] WBC (Bld) [#/Vol] 9.4 10*3/uL Normal 4.1-10.5 [facility] Comment on above: Performed By: #### C BCNO ####[address] [address] [facility] Leukocytes [#/volume] correc robert for nucleated erythrocytes in Blood by Automated counOrdered By: [employer] on 09-05-2023 WBC corrected for nucl RBC Auto (Bld) [#/Vol] 9.4 10*3/uL 4.1-10.5 [facility] MCH Auto (RBC) [Entitic mass ]Ordered By: [employer] on 09-05-2023 MCH (RBC) [Entitic mass] 28.7 pg 27.5-35.2 [facility] MCHC Auto (RBC) [Mass/Vol]Or dered By: [employer] on 09-05-2023 MCHC (RBC) [Mass/Vol] 34.1 g/dL 32.5-35.6 [facility] MCV Auto (RBC) [Entitic vol] Ordered By: [employer] on 09-05-2023 MCV (RBC) [Entitic vol] 84.1 fL 83.5-101 [facility] Platelet mean volume Auto (B ld) [Entitic vol]Ordered By: [employer] on 09-05-2023 Platelet mean volume (Bld) [Entitic vol] 9.8 fL 6.6-10.1 [facility] Platelets Auto (Bld) [#/Vol] Ordered By: [employer] on 09-05-2023 Platelets (Bld) [#/Vol] 236 10*3/uL 150-450 [facility] RBC Auto (Bld) [#/Vol]Ordere d By: [employer] on 09-05-2023 RBC (Bld) [#/Vol] 2.70 10*6/uL 3.90-5.60 [facility] Basophils Auto (Bld) [#/Vol] Ordered By: Immanuel Pinzon on 09-04-2023 Basophils (Bld) [#/Vol] 0.0 10*3/uL 0.0-0.2 [facility] Basophils/100 WBC Auto (Bld) Ordered By: Immanuel Pinzon on 09-04-2023 Basophils/100 WBC (Bld) 0.4 % . [facility] Complete Blood Count Auto Di ffon 09-04-2023 Basophils (Bld) [#/Vol] 0.0 10*3/uL Normal 0.0-0.2 [facility] Comment on above: Result Comment: PERF ORMED BY:[facility] [place], [place] [phone] MEDICAL DIRECTORAIRAM MAST M.D. Performed By: #### C BC ####[facility] [id number] [place] [address] [facility] Basophils/100 WBC (Bld) 0.4 % Normal . [facility] Comment on above: Performed By: #### C BC ####[address] Eosinophils (Bld) [#/Vol] 0.1 10*3/uL Normal 0.0-0.45 [facility] Comment on above: Performed By: #### C BC ####[address] Eosinophils/100 WBC (Bld) 0.8 % Normal . [facility] Comment on above: Performed By: #### C BC ####[address] Erythrocyte distribution width (RBC) [Ratio] 16.3 % High 12.0-14.8 [facility] Comment on above: Performed By: #### C BC ####[address] Hematocrit (Bld) [Volume fraction] 24.3 % Low 38.8-50.0 [facility] Comment on above: Performed By: #### C BC ####[address] Hemoglobin (Bld) [Mass/Vol] 8.2 g/dL Low 13.0-17.0 [facility] Comment on above: Performed By: #### C BC ####[address] Lymphocytes (Bld) [#/Vol] 1.3 10*3/uL Normal 1.00-4.8 [facility] Comment on above: Performed By: #### C BC ####[address] Lymphocytes/100 WBC (Bld) 11.7 % Normal . [facility] Comment on above: Performed By: #### C BC ####[address] MCH (RBC) [Entitic mass] 28.3 pg Normal 27.5-35.2 [facility] Comment on above: Performed By: #### C BC ####[address] MCV (RBC) [Entitic vol] 84.5 fL Normal 83.5-101 [facility] Comment on above: Performed By: #### C BC ####[id number] [facility] Mean Corpuscular HGB Conc 33.5 g/dL Normal 32.5-35.6 [facility] Comment on above: Performed By: #### C BC ####[address] Monocytes (Bld) [#/Vol] 1.9 10*3/uL High 0.0-0.8 [facility] Comment on above: Performed By: #### C BC ####[address] Monocytes/100 WBC (Bld) 17.9 % Normal . [facility] Comment on above: Result Comment: Abso lute monocytosis is commonly reactive in nature. However, if unexplained, recommend follow-up CBC in 3 months to evaluate for persistence. Performed By: #### C BC ####[address] Neutrophils (Bld) [#/Vol] 7.4 10*3/uL Normal 1.8-7.7 [facility] Comment on above: Performed By: #### C BC ####[place] [id number] [facility] Neutrophils/100 WBC (Bld) 69.2 % Normal . [facility] Comment on above: Performed By: #### C BC ####[place] [id number] [facility] NRBC% 0.2 /100{WBC} Normal 0-0.5 [facility] Comment on above: Performed By: #### C BC ####[place] [id number] [facility] Platelet mean volume (Bld) [Entitic vol] 10.2 fL High 6.6-10.1 [facility] Comment on above: Performed By: #### C BC ####[address] [address] [place] [address] [facility] Platelets (Bld) [#/Vol] 206 10*3/uL Normal 150-450 [facility] Comment on above: Performed By: #### C BC ####[address] [place] [address] [facility] RBC (Bld) [#/Vol] 2.88 10*6/uL Low 3.90-5.60 [facility] Comment on above: Performed By: #### C BC ####[address] [place] [address] [facility] WBC (Bld) [#/Vol] 10.7 10*3/uL High 4.1-10.5 [facility] Comment on above: Performed By: #### C BC ####[address] [address] [facility] Eosinophils Auto (Bld) [#/Vo l]Ordered By: Immanuel Pinzon on 09-04-2023 Eosinophils (Bld) [#/Vol] 0.1 10*3/uL 0.0-0.45 [facility] Eosinophils/100 WBC Auto (Bl d)Ordered By: Immanuel Pinzon on 09-04-2023 Eosinophils/100 WBC (Bld) 0.8 % . [facility] Glucose Poct Glucometerson 0 09-04-2023 Glucose [Mass/Vol] 381 mg/dL Normal [facility] Comment on above: Result Comment: [facility] Glucose Reference Range is dependent on time and content of last meal. Glucose of more than 200 mg/dL in a nonstressed, ambulatory subject supports the diagnosis of Diabetes Mellitus.PERFORMED BY:[address] [place], [place] [phone] MEDICAL DIRECTORAIRAM MAST M.D. Performed By: #### G LULS ####Point of Care testing, Commemt1 Normal [facility] Comment on above: Result Comment: Glu2 : WILL NOTIFY DR/ROCÍOERFORMED BY:[address] [address] [place] [place] [phone] MEDICAL DIRECTORAIRAM MAST M.D. Performed By: #### G LULS ####Point of Care testing, Glucose [Mass/Vol] 464 mg/dL Off scale high [facility] Comment on above: Result Comment: [place] [facility] Glucose Reference Range is dependent on time and content of last meal. Glucose of more than 200 mg/dL in a nonstressed, ambulatory subject supports the diagnosis of Diabetes Mellitus. Performed By: #### G LULS ####Point of Care testing, Glucose [Mass/Vol] 381 mg/dL Normal [facility] Comment on above: Result Comment: [place] om Glucose Reference Range is dependent on time and content of last meal. Glucose of more than 200 mg/dL in a nonstressed, ambulatory subject supports the diagnosis of Diabetes Mellitus.PERFORMED BY:[address] [place], [place] [phone] MEDICAL DIRECTORAIRAM MAST M.D. Performed By: #### G LULS ####Point of Care testing, Lymphocytes Auto (Bld) [#/Vo l]Ordered By: Immanuel Pinzon on 09-04-2023 Lymphocytes (Bld) [#/Vol] 1.3 10*3/uL 1.00-4.8 [facility] Lymphocytes/100 WBC Auto (Bl d)Ordered By: Immanuel Pinzon on 09-04-2023 Lymphocytes/100 WBC (Bld) 11.7 % . [facility] Monocytes Auto (Bld) [#/Vol] Ordered By: Immanuel Pinzon on 09-04-2023 Monocytes (Bld) [#/Vol] 1.9 10*3/uL 0.0-0.8 [facility] Monocytes/100 WBC Auto (Bld) Ordered By: Immanuel Pinzon on 09-04-2023 Monocytes/100 WBC (Bld) 17.9 % . [facility] Comment on above: Absolute monocytosis is commonly reactive in nature. However, if unexplained, recommend follow-up CBC in 3 months to evaluate for persistence. Neutrophils Auto (Bld) [#/Vo l]Ordered By: Immanuel Pinzon on 09-04-2023 Neutrophils (Bld) [#/Vol] 7.4 10*3/uL 1.8-7.7 [facility] Neutrophils/100 WBC Auto (Bl d)Ordered By: Immanuel Pinzon on 09-04-2023 Neutrophils/100 WBC (Bld) 69.2 % . [facility] Nucleated erythrocytes [Pres ence] in Blood by Automated countOrdered By: Immanuel Pinzon on 09-04-2023 Nucleated RBC Auto Ql (Bld) 0.2 /100{WBC} 0-0.5 [facility] WBC Auto (Bld) [#/Vol]Ordere d By: Immanuel Pinzon on 09-04-2023 WBC (Bld) [#/Vol] 10.7 10*3/uL 4.1-10.5 [facility] Glucose Poct Glucometerson 0 09-03-2023 Glucose [Mass/Vol] 195 mg/dL Normal [facility] Comment on above: Result Comment: [facility] Glucose Reference Range is dependent on time and content of last meal. Glucose of more than 200 mg/dL in a nonstressed, ambulatory subject supports the diagnosis of Diabetes Mellitus.PERFORMED BY:[address] [place], [place] [phone] MEDICAL HUMBLE MAST M.D. Performed By: #### G LULS ####Point of Care testing, Glucose [Mass/Vol] 83 mg/dL Normal [facility] Comment on above: Result Comment: [facility] Glucose Reference Range is dependent on time and content of last meal. Glucose of more than 200 mg/dL in a nonstressed, ambulatory subject supports the diagnosis of Diabetes Mellitus.PERFORMED BY:[address] [place], [place] [phone] MEDICAL HUMBLE MAST M.D. Performed By: #### G LULS ####Point of Care testing, Glucose [Mass/Vol] 334 mg/dL Normal [facility] Comment on above: Result Comment: [facility] Glucose Reference Range is dependent on time and content of last meal. Glucose of more than 200 mg/dL in a nonstressed, ambulatory subject supports the diagnosis of Diabetes Mellitus.PERFORMED BY:[address] [place], [place] [phone] MEDICAL DIRECTORAIRAM MAST M.D. Performed By: #### G LULS ####Point of Care testing, Glucose [Mass/Vol] 144 mg/dL Normal [facility] Comment on above: Result Comment: [facility] Glucose Reference Range is dependent on time and content of last meal. Glucose of more than 200 mg/dL in a nonstressed, ambulatory subject supports the diagnosis of Diabetes Mellitus.PERFORMED BY:[address] [place], [place] [phone] MEDICAL DIRECTORAIRAM MAST M.D. Performed By: #### G LULS ####Point of Care testing, Glucose [Mass/Vol] 72 mg/dL Normal [facility] Comment on above: Result Comment: [facility] Glucose Reference Range is dependent on time and content of last meal. Glucose of more than 200 mg/dL in a nonstressed, ambulatory subject supports the diagnosis of Diabetes Mellitus.PERFORMED BY:[address] [place], [place] [phone] MEDICAL DIRECTORAIRAM MAST M.D. Performed By: #### G LULS ####Point of Care testing, Hemogram CBC Without Diffon 09-03-2023 Erythrocyte distribution width (RBC) [Ratio] 16.6 % High 12.0-14.8 [facility] Comment on above: Performed By: #### C BCNO ####[address] [address] [facility] Hematocrit (Bld) [Volume fraction] 20.3 % Low 38.8-50.0 [facility] Comment on above: Performed By: #### C BCNO ####[address] [address] [facility] Hemoglobin (Bld) [Mass/Vol] 6.9 g/dL Low 13.0-17.0 [facility] Comment on above: Performed By: #### C BCNO ####[address] [address] [facility] MCH (RBC) [Entitic mass] 28.2 pg Normal 27.5-35.2 [facility] Comment on above: Performed By: #### C BCNO ####[address] [address] [facility] MCV (RBC) [Entitic vol] 82.8 fL Low 83.5-101 [facility] Comment on above: Performed By: #### C BCNO ####[address] [address] [facility] Mean Corpuscular HGB Conc 34.0 g/dL Normal 32.5-35.6 [facility] Comment on above: Performed By: #### C BCNO ####[address] [address] [facility] Platelet mean volume (Bld) [Entitic vol] 11.0 fL High 6.6-10.1 [facility] Comment on above: Result Comment: PERF ORMED BY:[address] [place]OdalysOdalis[place], [place] [phone] MEDICAL DIRECTORAIRAM MAST M.D. Performed By: #### C BCNO ####[address] [address] [facility] Platelets (Bld) [#/Vol] 152 10*3/uL Normal 150-450 [facility] Comment on above: Performed By: #### C BCNO ####[address] [address] [facility] RBC (Bld) [#/Vol] 2.45 10*6/uL Low 3.90-5.60 [facility] Comment on above: Performed By: #### C BCNO ####[address] [address] [facility] WBC (Bld) [#/Vol] 9.5 10*3/uL Normal 4.1-10.5 [facility] Comment on above: Performed By: #### C BCNO ####[facility] [id number] [place] [address] [facility] Glucose Poct Glucometerson 0 09-02-2023 Glucose [Mass/Vol] 390 mg/dL Normal [facility] Comment on above: Result Comment: [place] Glucose Reference Range is dependent on time and content of last meal. Glucose of more than 200 mg/dL in a nonstressed, ambulatory subject supports the diagnosis of Diabetes Mellitus.PERFORMED BY:[address] [place], [place] [phone] MEDICAL DIRECTORAIRAM MAST M.D. Performed By: #### G LULS ####Point of Care testing, Commemt1 [facility] Comment on above: Result Comment: Glu2 : WILL NOTIFY DR/ROCÍOERFORMED BY:[address] CARMEN[place]TOA [place], [place] [phone] MEDICAL DIRECTORAIRAM MAST M.D. Performed By: #### G LULS ####Point of Care testing, Glucose [Mass/Vol] 470 mg/dL Off scale high [facility] Comment on above: Result Comment: [facility] Glucose Reference Range is dependent on time and content of last meal. Glucose of more than 200 mg/dL in a nonstressed, ambulatory subject supports the diagnosis of Diabetes Mellitus. Performed By: #### G LULS ####Point of Care testing, Glucose [Mass/Vol] 306 mg/dL Normal [facility] Comment on above: Result Comment: [place] Glucose Reference Range is dependent on time and content of last meal. Glucose of more than 200 mg/dL in a nonstressed, ambulatory subject supports the diagnosis of Diabetes Mellitus.PERFORMED BY:[address], [place] [phone] MEDICAL HUMBLE MAST M.D. Performed By: #### G LULS ####Point of Care testing, Commemt1 Glu2: Cleaned Meter Normal [facility] Comment on above: Result Comment: PERF ORMED BY:[address] [address] [place], [place] [phone] MEDICAL DIRECTORAIRAM MAST M.D. Performed By: #### G LULS ####Point of Care testing, Glucose [Mass/Vol] 77 mg/dL Normal [facility] Comment on above: Result Comment: [place] Glucose Reference Range is dependent on time and content of last meal. Glucose of more than 200 mg/dL in a nonstressed, ambulatory subject supports the diagnosis of Diabetes Mellitus. Performed By: #### G LULS ####Point of Care testing, Commemt1 [facility] Comment on above: Result Comment: Glu2 : FOLLOW HYPOGLYCEMICPERFORMED BY:[address] [place], [place] [phone] MEDICAL DIRECTORAIRAM MAST M.D. Performed By: #### G LULS ####Point of Care testing, Glucose [Mass/Vol] 51 mg/dL Off scale [facility] Comment on above: Result Comment: [facility] Glucose Reference Range is dependent on time and content of last meal. Glucose of more than 200 mg/dL in a nonstressed, ambulatory subject supports the diagnosis of Diabetes Mellitus. Performed By: #### G LULS ####Point of Care testing, Glucose [Mass/Vol] 126 mg/dL Normal [facility] Comment on above: Result Comment: [facility] Glucose Reference Range is dependent on time and content of last meal. Glucose of more than 200 mg/dL in a nonstressed, ambulatory subject supports the diagnosis of Diabetes Mellitus.PERFORMED BY:[address] [place], [place] [phone] MEDICAL DIRECTORAIRAM MAST M.D. Performed By: #### G LULS ####Point of Care testing, Glucose [Mass/Vol] 60 mg/dL Off scale [facility] Comment on above: Result Comment: [place] Glucose Reference Range is dependent on time and content of last meal. Glucose of more than 200 mg/dL in a nonstressed, ambulatory subject supports the diagnosis of Diabetes Mellitus.PERFORMED BY:[address] [place], [place] [phone] MEDICAL DIRECTORAIRAM MAST M.D. Performed By: #### G LULS ####Point of Care testing, Glucose [Mass/Vol] 89 mg/dL Normal [facility] Comment on above: Result Comment: [place] Glucose Reference Range is dependent on time and content of last meal. Glucose of more than 200 mg/dL in a nonstressed, ambulatory subject supports the diagnosis of Diabetes Mellitus.PERFORMED BY:[address] [place], [place] [phone] MEDICAL DIRECTORAIRAM MAST M.D. Performed By: #### G LULS ####Point of Care testing, Commem[address] Comment on above: Result Comment: Glu2 : Will Repeat TestPERFORMED BY:[address] GORDONOdalisKESHATOA [place], [place] [phone] MEDICAL DIRECTORAIRAM MAST M.D. Performed By: #### G LULS ####Point of Care testing, Glucose [Mass/Vol] 55 mg/dL Off scale [facility] Comment on above: Result Comment: [place] [facility] Glucose Reference Range is dependent on time and content of last meal. Glucose of more than 200 mg/dL in a nonstressed, ambulatory subject supports the diagnosis of Diabetes Mellitus. Performed By: #### G LULS ####Point of Care testing, [address] Comment on above: Result Comment: Glu2 : Will Repeat TestPERFORMED BY:[address] [place], [place] [phone] MEDICAL HUMBLE MAST M.D. Performed By: #### G LULS ####Point of Care testing, Glucose [Mass/Vol] 55 mg/dL Off scale [facility] Comment on above: Result Comment: [place] Glucose Reference Range is dependent on time and content of last meal. Glucose of more than 200 mg/dL in a nonstressed, ambulatory subject supports the diagnosis of Diabetes Mellitus. Performed By: #### G LULS ####Point of Care testing, Commemt1 Normal [facility] Comment on above: Result Comment: Glu2 : WILL NOTIFY DR/RN Performed By: #### G LULS ####Point of Care testing, Commemt2 Will Repeat Test Normal [facility] Comment on above: Result Comment: PERF ORMED BY:[address] [place], [place] [phone] MEDICAL DIRECTORAIRAM MAST M.D. Performed By: #### G LULS ####Point of Care testing, Glucose [Mass/Vol] 42 mg/dL Off scale low [facility] Comment on above: Result Comment: [facility] Glucose Reference Range is dependent on time and content of last meal. Glucose of more than 200 mg/dL in a nonstressed, ambulatory subject supports the diagnosis of Diabetes Mellitus. Performed By: #### G LULS ####Point of Care testing, Hemoglobin and Hematocriton 09-02-2023 Hematocrit (Bld) [Volume fraction] 21.6 % Low 38.8-50.0 [facility] Comment on above: Result Comment: PERF ORMED BY:[address] [place], [place] [phone] MEDICAL HUMBLE MAST M.D. Performed By: #### H H ####[address] [address] [facility] Hemoglobin (Bld) [Mass/Vol] 7.5 g/dL Low 13.0-17.0 [facility] Comment on above: Performed By: #### H H ####[address] [address] [facility] Hemogram CBC Without Diffon 09-02-2023 Erythrocyte distribution width (RBC) [Ratio] 15.8 % High 12.0-14.8 [facility] Comment on above: Performed By: #### C BCNO ####[place] [id number] [facility] Hematocrit (Bld) [Volume fraction] 21.2 % Low 38.8-50.0 [facility] Comment on above: Performed By: #### C BCNO ####[address] [place] [address] [facility] Hemoglobin (Bld) [Mass/Vol] 7.4 g/dL Low 13.0-17.0 [facility] Comment on above: Performed By: #### C BCNO ####[address] [place] [address] [facility] MCH (RBC) [Entitic mass] 28.5 pg Normal 27.5-35.2 [facility] Comment on above: Performed By: #### C BCNO ####[place] [id number] [facility] MCV (RBC) [Entitic vol] 82.4 fL Low 83.5-101 [facility] Comment on above: Performed By: #### C BCNO ####[place] [id number] [facility] Mean Corpuscular HGB Conc 34.6 g/dL Normal 32.5-35.6 [facility] Comment on above: Performed By: #### C BCNO ####[place] [id number] [facility] Platelet mean volume (Bld) [Entitic vol] 10.5 fL High 6.6-10.1 [facility] Comment on above: Result Comment: PERF ORMED BY:[address] [place], [place] [phone] MEDICAL DIRECTORAIRAM MAST M.D. Performed By: #### C BCNO ####[address] [address] [facility] Platelets (Bld) [#/Vol] 106 10*3/uL Low 150-450 [facility] Comment on above: Performed By: #### C BCNO ####[address] [address] [facility] RBC (Bld) [#/Vol] 2.58 10*6/uL Low 3.90-5.60 [facility] Comment on above: Performed By: #### C BCNO ####[facility] [id number] [place] [address] [facility] WBC (Bld) [#/Vol] 10.5 10*3/uL Normal 4.1-10.5 [facility] Comment on above: Performed By: #### C BCNO ####[address] [place] [address] [facility] No Panel InformationOrdered By: [employer] on 09-02-2023 Bedside Glucose #2 Comment Will repeat test [facility] Acanthocytes [Presence] in B lood by Light microscopyOrdered By: [employer] on 09-01-2023 Acanthocytes LM Ql (Bld) Slight [facility] Anisocytosis LM Ql (Bld)Orde red By: [employer] on 09-01-2023 Anisocytosis Ql (Bld) Moderate [facility] Band form neutrophils/100 WB C Manual cnt (Bld)Ordered By: uAdi [employer] on 09-01-2023 Band form neutrophils/100 WBC (Bld) 4 % 0-5 [facility] Basic Metabolic Panelon 08-13 Anion gap [Moles/Vol] 10.6 mmol/L Normal 6.0-15.0 [facility] Comment on above: Performed By: #### H S TROP, BMP, DIFF CBC ####[address] [place] [address] [facility] Calcium [Mass/Vol] 7.7 mg/dL Low 8.6-10.3 [facility] Comment on above: Performed By: #### H S TROP, BMP, DIFF CBC ####[facility] [address] [place] [address] [place] Chloride [Moles/Vol] 106 mmol/L Normal 98-107 [facility] Comment on above: Performed By: #### H S TROP, BMP, DIFF CBC ####[facility] [address] [place] [address] [facility] CO2 [Moles/Vol] 27.3 mmol/L Normal 21.0-31.0 [facility] Comment on above: Performed By: #### H S TROP, BMP, DIFF CBC ####[facility] [address] [place] [address] [facility] Creatinine [Mass/Vol] 0.81 mg/dL Normal 0.70-1.30 [facility] Comment on above: Performed By: #### H S TROP, BMP, DIFF CBC ####[facility] [address] [place] [address] [place] Creatinine Clr Calc Pharmacy 59.91 Normal [facility] Comment on above: Result Comment: PERF ORMED BY:[facility] [place], [place] [phone] MEDICAL DIRECTORAIRAM MAST M.D. Performed By: #### H S TROP, BMP, DIFF CBC ####[address] [place] [address] [place] GFR/1.73 sq M.predicted MDRD (S/P/Bld) [Vol rate/Area] mL/min/{1.73_m2} [facility] Comment on above: Performed By: #### H S TROP, BMP, DIFF CBC ####[address] [place] [address] [facility] Glucose [Mass/Vol] 79 mg/dL Normal 70-100 [facility] Comment on above: Result Comment: [facility] Glucose Reference Range is dependent on time and content of last meal. Glucose of more than 200 mg/dL in a nonstressed, ambulatory subject supports the diagnosis of Diabetes Mellitus. ADA recommended reference range Performed By: #### H S TROP, BMP, DIFF CBC ####[facility] [address] [place] [address] [facility] Potassium [Moles/Vol] 3.9 mmol/L Normal 3.5-5.1 [facility] Comment on above: Performed By: #### H S TROP, BMP, DIFF CBC ####[facility] [address] [place] [address] [facility] Sodium [Moles/Vol] 140 mmol/L Normal 136-145 [facility] Comment on above: Performed By: #### H S TROP, BMP, DIFF CBC ####[facility] [id number] [place] [id number] [facility] Urea nitrogen [Mass/Vol] 37 mg/dL High 7-25 [facility] Comment on above: Performed By: #### H S TROP, BMP, DIFF CBC ####[facility] [id number] [place] [id number] [facility] Geo cells [Presence] in Blo od by Light microscopyOrdered By: [employer] on 09-01-2023 [place] cells LM Ql (Bld) Slight [facility] Calcium [Mass/volume] in Ser um or PlasmaOrdered By: [employer] on 09-01-2023 Calcium [Mass/Vol] 7.7 mg/dL 8.6-10.3 [facility] Carbon dioxide, total [Moles /volume] in Serum or PlasmaOrdered By: [employer] on 09-01-2023 CO2 [Moles/Vol] 27.3 mmol/L 21.0-31.0 [facility] Chloride [Moles/volume] in S jihan or PlasmaOrdered By: [employer] on 09-01-2023 Chloride [Moles/Vol] 106 mmol/L 98-107 [facility] Creatinine [Mass/volume] in Serum or PlasmaOrdered By: [employer] on 09-01-2023 Creatinine [Mass/Vol] 0.81 mg/dL 0.70-1.30 [facility] Diff and CBCon 09-01-2023 Acanthocytes Slight Normal [facility] Comment on above: Performed By: #### H S TROP, BMP, DIFF CBC ####[facility] [id number] [place] [id number] [place] Anisocytosis Ql (Bld) Moderate Normal [facility] Comment on above: Performed By: #### H S TROP, BMP, DIFF CBC ####[facility] [id number] [place] [id number] [facility] Band form neutrophils/100 WBC (Bld) 4 % Normal 0-5 [facility] Comment on above: Performed By: #### H S TROP, BMP, DIFF CBC ####[address] Crenated RBC Slight Normal [facility] Comment on above: Performed By: #### H S TROP, BMP, DIFF CBC ####[address] Erythrocyte distribution width (RBC) [Ratio] 16.4 % High 12.0-14.8 [facility] Comment on above: Performed By: #### H S TROP, BMP, DIFF CBC ####[address] Hematocrit (Bld) [Volume fraction] 20.9 % Low 38.8-50.0 [facility] Comment on above: Performed By: #### H S TROP, BMP, DIFF CBC ####[address] Hemoglobin (Bld) [Mass/Vol] 7.3 g/dL Low 13.0-17.0 [facility] Comment on above: Performed By: #### H S TROP, BMP, DIFF CBC ####[address] Hypochromasia Moderate Normal [facility] Comment on above: Performed By: #### H S TROP, BMP, DIFF CBC ####[address] Large Platelets Slight Normal [facility] Comment on above: Result Comment: PERF ORMED BY:[address] [place], [place] [phone] MEDICAL DIRECTORAIRAM MAST M.D. Performed By: #### H S TROP, BMP, DIFF CBC ####[address] Lymphocytes/100 WBC (Bld) 9 % Low 18-42 [facility] Comment on above: Performed By: #### H S TROP, BMP, DIFF CBC ####[address] MCH (RBC) [Entitic mass] 28.2 pg Normal 27.5-35.2 [facility] Comment on above: Performed By: #### H S TROP, BMP, DIFF CBC ####[address] MCV (RBC) [Entitic vol] 80.8 fL Low 83.5-101 [facility] Comment on above: Performed By: #### H S TROP, BMP, DIFF CBC ####[address] Mean Corpuscular HGB Conc 34.9 g/dL Normal 32.5-35.6 [facility] Comment on above: Performed By: #### H S TROP, BMP, DIFF CBC ####[address] Microcytosis Moderate Normal [facility] Comment on above: Performed By: #### H S TROP, BMP, DIFF CBC ####[address] Monocytes/100 WBC (Bld) 7 % Normal 2-11 [facility] Comment on above: Performed By: #### H S TROP, BMP, DIFF CBC ####[address] Ovalocytes Slight Normal [facility] Comment on above: Performed By: #### H S TROP, BMP, DIFF CBC ####[place] [id number] [facility] Platelet Estimate Decreased Normal Normal [facility] Comment on above: Performed By: #### H S TROP, BMP, DIFF CBC ####[address] Platelet mean volume (Bld) [Entitic vol] 10.9 fL High 6.6-10.1 [facility] Comment on above: Result Comment: PERF ORMED BY:[address] [place], [place] [phone] MEDICAL HUMBLE MAST M.D. Performed By: #### H S TROP, BMP, DIFF CBC ####[address] [place] [address] [place] Platelets (Bld) [#/Vol] 114 10*3/uL Low 150-450 [facility] Comment on above: Performed By: #### H S TROP, BMP, DIFF CBC ####[address] Poikilocytosis Moderate Normal [facility] Comment on above: Performed By: #### H S TROP, BMP, DIFF CBC ####[address] Polychromasia Slight Normal [facility] Comment on above: Performed By: #### H S TROP, BMP, DIFF CBC ####[address] RBC (Bld) [#/Vol] 2.59 10*6/uL Low 3.90-5.60 [facility] Comment on above: Performed By: #### H S TROP, BMP, DIFF CBC ####[address] Schistocytes Slight Normal [facility] Comment on above: Performed By: #### H S TROP, BMP, DIFF CBC ####[address] Segmented neutrophils/100 WBC (Bld) 81 % High 50-70 [facility] Comment on above: Performed By: #### H S TROP, BMP, DIFF CBC ####[address] Target Cells Slight Normal [facility] Comment on above: Performed By: #### H S TROP, BMP, DIFF CBC ####[address] WBC (Bld) [#/Vol] 10.8 10*3/uL High 4.1-10.5 [facility] Comment on above: Performed By: #### H S TROP, BMP, DIFF CBC ####[address] Glucose Poct Glucometerson 0 09-01-2023 Glucose [Mass/Vol] 166 mg/dL Normal [facility] Comment on above: Result Comment: [place] om Glucose Reference Range is dependent on time and content of last meal. Glucose of more than 200 mg/dL in a nonstressed, ambulatory subject supports the diagnosis of Diabetes Mellitus.PERFORMED BY:[facility] [place] [id number] MEDICAL DIRECTORAIRAM MAST M.D. Performed By: #### G LULS ####Point of Care testing, Commemt1 Glu2: Cleaned Meter Normal [facility] Comment on above: Result Comment: PERF ORMED BY:[place] [address] [address] [place], [place] [phone] MEDICAL DIRECTORAIRAM MAST M.D. Performed By: #### G LULS ####Point of Care testing, Glucose [Mass/Vol] 79 mg/dL Normal [facility] Comment on above: Result Comment: [place] om Glucose Reference Range is dependent on time and content of last meal. Glucose of more than 200 mg/dL in a nonstressed, ambulatory subject supports the diagnosis of Diabetes Mellitus. Performed By: #### G LULS ####Point of Care testing, Glucose [Mass/volume] in Ser um or PlasmaOrdered By: Audi Gaming on 09-01-2023 Glucose [Mass/Vol] 79 mg/dL 70-100 [facility] Comment on above: ADA recommended refe rence rangeRandom Glucose Reference Range is dependent on time and content of last meal. Glucose of more than 200 mg/dL in a nonstressed, ambulatory subject supports the diagnosis of Diabetes Mellitus. Hypochromia LM Ql (Bld)Order ed By: Audi Gaming on 09-01-2023 Hypochromia Ql (Bld) Moderate [facility] Jairo 09-01-2023 L Normal [facility] Lymphocytes/100 WBC Manual c nt (Bld)Ordered By: Audi Gaming on 09-01-2023 Lymphocytes/100 WBC (Bld) 9 % 18-42 [facility] Microcytes LM Ql (Bld)Ordere d By: Audi Gaming on 09-01-2023 Microcytes Ql (Bld) Moderate [facility] Monocytes/100 WBC Manual cnt (Bld)Ordered By: Audi Gaming on 09-01-2023 Monocytes/100 WBC (Bld) 7 % 2-11 [facility] No Panel InformationOrdered By: Audi Gaming on 09-01-2023 Estimated GFR (CKD-EPI) > 60.0 mL/Min [facility] Creatinine Clearance (Chem 59.91 [facility] Ovalocyte detectionOrdered B y: Audi Gaming on 09-01-2023 Ovalocytes LM Ql (Bld) Slight [facility] Platelet adequacy [Presence] in Blood by Light microscopyOrdered By: Audi Gaming on 09-01-2023 Platelets LM Ql (Bld) Decreased Normal [facility] Platelet morphology finding [Identifier] in BloodOrdered By: Audi Gaming on 09-01-2023 Platelet morphology finding Nom (Bld) N/A [facility] Platelets Large [Presence] i n Blood by Light microscopyOrdered By: Audi Gaming on 09-01-2023 Platelets Large LM Ql (Bld) [facility] Poikilocytosis [Presence] in Blood by Light microscopyOrdered By: Audi Gaming on 09-01-2023 Poikilocytosis LM Ql (Bld) [facility] Polychromasia [Presence] in Blood by Light microscopyOrdered By: Audi Gaming on 09-01-2023 Polychromasia LM Ql (Bld) [facility] Potassium [Moles/volume] in Serum or PlasmaOrdered By: Audi Gaming on 09-01-2023 Potassium [Moles/Vol] 3.9 mmol/L 3.5-5.1 [facility] RBC morphologyOrdered By: Barbie Gaming on 09-01-2023 RBC morphology finding Nom (Bld) N/A [facility] Schistocytes [Presence] in B lood by Light microscopyOrdered By: Audi Gaming on 09-01-2023 Schistocytes LM Ql (Bld) Slight [facility] Segmented neutrophils/100 WB C Manual cnt (Bld)Ordered By: Audi Gaming on 09-01-2023 Segmented neutrophils/100 WBC (Bld) 81 % 50-70 [facility] Serum or plasma anion gap de terminationOrdered By: Audi Gaming on 09-01-2023 Anion gap [Moles/Vol] 10.6 mmol/L 6.0-15.0 [facility] Sodium [Moles/volume] in Ser um or PlasmaOrdered By: Audi Gaming on 09-01-2023 Sodium [Moles/Vol] 140 mmol/L 136-145 [facility] Target cellsOrdered By: Andr bebeto Gaming on 09-01-2023 Target cells LM Ql (Bld) Slight [facility] Troponin I High Sensitivityo n 09-01-2023 Troponin I High Sensitivity 779.8 pg/mL Off scale high 0.0-20.0 [facility] Comment on above: Result Comment: Crit ical Result : Called to and read back by: EDNA MORALES at: 09/01/2023 06:23:23 by:TANIAPERFORMED BY:[address] [place], [place] [phone] MEDICAL DIRECTORAIRAM MAST M.D. Performed By: #### H S TROP, BMP, DIFF CBC ####[facility] [place] [address] [facility] Troponin I.cardiac [Mass/vol ume] in Serum or Plasma by Detection limit <= 0.01 ng/Ordered By: Audi Gaming on 09-01-2023 Troponin I.cardiac DL <= 0.01 ng/mL [Mass/Vol] 779.8 pg/mL 0.0-20.0 [facility] Comment on above: Critical Result : Ca lled to and read back by: EDNA MORALES at: 09/01/2023 06:23:23 by:TANIA Urea nitrogen [Mass/volume] in Serum or PlasmaOrdered By: Audi Gaming on 09-01-2023 Urea nitrogen [Mass/Vol] 37 mg/dL 7-25 [facility] XR cervical spine LAT/FLX/EX Ton 09-01-2023 XR cervical spine LAT/FLX/EXT Normal [facility] Diff and CBCon 08-31-2023 Acanthocytes Slight Normal [facility] Comment on above: Performed By: #### D IFF CBC, HS TROP ####[facility] [address] [place] [address] [facility] Anisocytosis Ql (Bld) Moderate Normal [facility] Comment on above: Performed By: #### D IFF CBC, HS TROP ####[facility] [id number] [place] [address] [facility] Band form neutrophils/100 WBC (Bld) 5 % Normal 0-5 [facility] Comment on above: Performed By: #### D IFF CBC, HS TROP ####[place] [address] [place] [address] [facility] Erythrocyte distribution width (RBC) [Ratio] 16.3 % High 12.0-14.8 [facility] Comment on above: Performed By: #### D IFF CBC, HS TROP ####[address] [address] [facility] Hematocrit (Bld) [Volume fraction] 22.2 % Low 38.8-50.0 [facility] Comment on above: Performed By: #### D IFF CBC, HS TROP ####[address] [address] [facility] Hemoglobin (Bld) [Mass/Vol] 7.6 g/dL Low 13.0-17.0 [facility] Comment on above: Performed By: #### D IFF CBC, HS TROP ####[facility] [id number] [place] [address] [facility] Hypochromasia Moderate Normal [facility] Comment on above: Performed By: #### D IFF CBC, HS TROP ####[facility] [id number] [place] [address] [facility] Lymphocytes/100 WBC (Bld) 12 % Low 18-42 [facility] Comment on above: Performed By: #### D IFF CBC, HS TROP ####[address] [place] [address] [facility] MCH (RBC) [Entitic mass] 27.4 pg Low 27.5-35.2 [facility] Comment on above: Performed By: #### D IFF CBC, HS TROP ####[address] [place] [address] [facility] MCV (RBC) [Entitic vol] 80.2 fL Low 83.5-101 [facility] Comment on above: Performed By: #### D IFF CBC, HS TROP ####[address] [place] [address] [facility] Mean Corpuscular HGB Conc 34.2 g/dL Normal 32.5-35.6 [facility] Comment on above: Performed By: #### D IFF CBC, HS TROP ####[address] [address] [facility] Monocytes/100 WBC (Bld) 5 % Normal 2-11 [facility] Comment on above: Performed By: #### D IFF CBC, HS TROP ####[address] [address] [facility] Platelet Estimate Decreased Normal Normal [facility] Comment on above: Performed By: #### D IFF CBC, HS TROP ####[address] [place] [address] [facility] Platelet mean volume (Bld) [Entitic vol] 10.5 fL High 6.6-10.1 [facility] Comment on above: Performed By: #### D IFF CBC, HS TROP ####[address] [address] [facility] Platelet Morphology Normal Normal Normal [facility] Comment on above: Result Comment: PERF ORMED BY:[address] [place], [place] [phone] MEDICAL DIRECTORAIRAM MAST M.D. Performed By: #### D IFF CBC, HS TROP ####[address] [address] [facility] Platelets (Bld) [#/Vol] 135 10*3/uL Low 150-450 [facility] Comment on above: Performed By: #### D IFF CBC, HS TROP ####[facility] [id number] [place] [address] [facility] Poikilocytosis Moderate Normal [facility] Comment on above: Performed By: #### D IFF CBC, HS TROP ####[address] [place] [address] [facility] Polychromasia Slight Normal [facility] Comment on above: Performed By: #### D IFF CBC, HS TROP ####[address] [place] [address] [facility] RBC (Bld) [#/Vol] 2.77 10*6/uL Low 3.90-5.60 [facility] Comment on above: Performed By: #### D IFF CBC, HS TROP ####[address] [address] [facility] Schistocytes Slight Normal [facility] Comment on above: Performed By: #### D IFF CBC, HS TROP ####[address] [place] [address] [facility] Segmented neutrophils/100 WBC (Bld) 78 % High 50-70 [facility] Comment on above: Performed By: #### D IFF CBC, HS TROP ####[address] [place] [address] [facility] Target Cells Slight Normal [facility] Comment on above: Performed By: #### D IFF CBC, HS TROP ####[address] [place] [address] [facility] WBC (Bld) [#/Vol] 11.9 10*3/uL High 4.1-10.5 [facility] Comment on above: Performed By: #### D IFF CBC, HS TROP ####[address] [place] [address] [facility] Glucose Poct Glucometerson 0 2 Glucose [Mass/Vol] 157 mg/dL Normal [facility] Comment on above: Result Comment: [place] Glucose Reference Range is dependent on time and content of last meal. Glucose of more than 200 mg/dL in a nonstressed, ambulatory subject supports the diagnosis of Diabetes Mellitus.PERFORMED BY:[address] [address] [address] [address] [place], [place] [phone] MEDICAL DIRECTORAIRAM MAST M.D. Performed By: #### G LULS ####Point of Care testing, Glucose [Mass/Vol] 159 mg/dL Normal [facility] Comment on above: Result Comment: [facility] Glucose Reference Range is dependent on time and content of last meal. Glucose of more than 200 mg/dL in a nonstressed, ambulatory subject supports the diagnosis of Diabetes Mellitus.PERFORMED BY:[place] [address] [address] [place], [place] [phone] MEDICAL DIRECTORAIRAM MAST M.D. Performed By: #### G LULS ####Point of Care testing, Commemt1 Glu2: Cleaned Meter Normal [facility] Comment on above: Result Comment: PERF ORMED BY:[address] [address] [address] [address] [place], [place] [phone] MEDICAL DIRECTORAIRAM MAST M.D. Performed By: #### G LULS ####Point of Care testing, Glucose [Mass/Vol] 117 mg/dL Normal [facility] Comment on above: Result Comment: [facility] Glucose Reference Range is dependent on time and content of last meal. Glucose of more than 200 mg/dL in a nonstressed, ambulatory subject supports the diagnosis of Diabetes Mellitus. Performed By: #### G LULS ####Point of Care testing, LeukoReduced RBCon LeukoReduced RBC TRANSFUSED 09/03/23 0919 Normal [facility] Troponin I High Sensitivityo n 08-31-2023 Troponin I High Sensitivity 127.9 pg/mL Off scale high 0.0-20.0 [facility] Comment on above: Result Comment: Crit ical Result : Called to and read back by: MERCEDES LOPEZ at: 08/31/2023 19:40:50 by:[id number] BY:[facility] [place], [place] [phone] MEDICAL DIRECTORAIRAM MAST M.D. Performed By: #### D IFF CBC, HS TROP ####[facility] [id number] [place] [address] [place] Type and Screenon 08-31-2023 ABO and Rh group Nom (Bld) Blood group A Rh(D) positive Normal [facility] Comment on above: Order Comment: Trans fuse now? Y Number of units to transfuse now? 1 Transfuse now? Y Number of units to transfuse now? 1 Transfuse now? Y Number of units to transfuse now? 1 XR hip RT min 2V(w/wo pelvis )*on 07-27-2023 XR hip RT min 2V(w/wo pelvis)* Normal [facility] Activated partial thrombopla stin time (aPTT) in platelet poor plasma by coagulation aOrdered By: Federico Davis on 07-16-2023 aPTT Coag (PPP) [Time] 30.2 s 25.1-36.5 [facility] Comment on above: A hematocrit value g reater than 55% may lead to inaccurate results in coagulation testing. Patients having hematocrit values >55% require a special collection tube for coagulation studies. Please contact the laboratory at [phone] for redraw instructions. Anisocytosis [Presence] in B lood by Light microscopyOrdered By: Federico Davis on 07-16-2023 Anisocytosis Ql (Bld) Slight Normal [facility] Comment on above: Performed By: #### S CAN CBC, LYTES, BUN ####[facility] [id number] [place] [address] [facility] Automated basophil %Ordered By: Federico Davis on 07-16-2023 Basophils/100 WBC (Bld) 0.5 % Normal . [facility] Comment on above: Performed By: #### S CAN CBC, LYTES, BUN ####[facility] [id number] [place] [address] [facility] Automated basophil countOrde red By: Federico Davis on 01-05-2024 Basophils (Bld) [#/Vol] 0.0 10*3/uL Normal 0.0-0.2 [facility] Comment on above: Performed By: #### S CAN CBC, LYTES, BUN ####[address] Automated blood monocyte cou ntOrdered By: Federico Davis on 07-16-2023 Monocytes (Bld) [#/Vol] 1.3 10*3/uL High 0.0-0.8 [facility] Comment on above: Performed By: #### S CAN CBC, LYTES, BUN ####[address] Automated eosinophil %Ordere d By: Federico Davis on 07-16-2023 Eosinophils/100 WBC (Bld) 0.3 % Normal . [facility] Comment on above: Performed By: #### S CAN CBC, LYTES, BUN ####[address] Automated eosinophil countOr dered By: Federico Davis on 07-16-2023 Eosinophils (Bld) [#/Vol] 0.0 10*3/uL Normal 0.0-0.45 [facility] Comment on above: Performed By: #### S CAN CBC, LYTES, BUN ####[address] Automated monocyte %Ordered By: Federico Davis on 07-16-2023 Monocytes/100 WBC (Bld) 15.1 % Normal . [facility] Comment on above: Performed By: #### S CAN CBC, LYTES, BUN ####[address] Automated neutrophil %Ordere d By: Federico Davis on 07-16-2023 Neutrophils/100 WBC (Bld) 75.7 % Normal . [facility] Comment on above: Performed By: #### S CAN CBC, LYTES, BUN ####[address] Carbon dioxide, total [Moles /volume] in Serum or PlasmaOrdered By: Federico Davis on 07-16-2023 CO2 [Moles/Vol] 26.8 mmol/L Normal 21.0-31.0 [facility] Comment on above: Performed By: #### S CAN CBC, LYTES, BUN ####[address] [place] [address] [facility] Chloride [Moles/volume] in S jihan or PlasmaOrdered By: Federico Davis on 07-16-2023 Chloride [Moles/Vol] 103 mmol/L Normal 98-107 [facility] Comment on above: Performed By: #### S CAN CBC, LYTES, BUN ####[address] [place] [address] [facility] Coagulation Profileon 2023 aPTT Coag (Bld) [Time] 30.2 s Normal 25.1-36.5 [facility] Comment on above: Result Comment: A he matocrit value greater than 55% may lead to inaccurate results in coagulation testing. Patients having hematocrit values >55% require a special collection tube for coagulation studies. Please contact the laboratory at [phone] for redraw instructions.PERFORMED BY:[address] [address] [address] [place], [place] [phone] MEDICAL DIRECTORAIRAM MAST M.D. Performed By: #### P P ####[address] [address] [facility] Creatinineon 07-16-2023 GFR/1.73 sq M.predicted MDRD (S/P/Bld) [Vol rate/Area] mL/min/{1.73_m2} Normal [facility] Comment on above: Result Comment: PERF ORMED BY:[place] [address] [address] [place], [place] [phone] MEDICAL DIRECTORAIRAM MAST M.D. Performed By: #### C REAT ####[address] [address] [facility] Creatinine [Mass/volume] in Serum or PlasmaOrdered By: Federico Davis on 07-16-2023 Creatinine [Mass/Vol] 0.71 mg/dL Normal 0.70-1.30 [facility] Comment on above: Performed By: #### C REAT ####[address] [place] [address] [facility] ECG 12 lead ECGon 07-16-2023 ECG 12 lead ECG Normal [facility] ECG 12 lead ECG Normal [facility] Erythrocyte distribution wid th [Ratio] by Automated countOrdered By: Federico Davis on 07-16-2023 Erythrocyte distribution width (RBC) [Ratio] 16.5 % High 12.0-14.8 [facility] Comment on above: Performed By: #### S CAN CBC, LYTES, BUN ####[address] [place] [address] [facility] Erythrocytes [#/volume] in B lood by Automated countOrdered By: Federico Davis on 07-16-2023 RBC (Bld) [#/Vol] 4.17 10*6/uL Normal 3.90-5.60 [facility] Comment on above: Performed By: #### S CAN CBC, LYTES, BUN ####[facility] [id number] [place] [address] [facility] Glucose Glucometer (BldC) [M ass/Vol]Ordered By: Federico Davis on 07-16-2023 Glucose [Mass/Vol] 398 mg/dL [facility] Comment on above: Random Glucose Refer ence Range is dependent on time and content of last meal. Glucose of more than 200 mg/dL in a nonstressed, ambulatory subject supports the diagnosis of Diabetes Mellitus. Glucose Poct Glucometerson 0 07-16-2023 Commemt1 Glu2: Cleaned Meter Normal [facility] Comment on above: Result Comment: PERF ORMED BY:[id number] [place], [place] [phone] MEDICAL DIRECTORAIRAM MAST M.D. Performed By: #### G LULS ####Point of Care testing, Glucose [Mass/Vol] 398 mg/dL Normal [facility] Comment on above: Result Comment: [place] Glucose Reference Range is dependent on time and content of last meal. Glucose of more than 200 mg/dL in a nonstressed, ambulatory subject supports the diagnosis of Diabetes Mellitus. Performed By: #### G LULS ####Point of Care testing, Glucose [Mass/Vol] 96 mg/dL Normal [facility] Comment on above: Result Comment: [facility] Glucose Reference Range is dependent on time and content of last meal. Glucose of more than 200 mg/dL in a nonstressed, ambulatory subject supports the diagnosis of Diabetes Mellitus.PERFORMED BY:[address] [place], [place] [phone] MEDICAL DIRECTORAIRAM MAST M.D. Performed By: #### G LUMARYA ####Point of Care testing, Hematocrit [Volume Fraction] of Blood by Automated countOrdered By: Federico Davis on 07-16-2023 Hematocrit (Bld) [Volume fraction] 33.5 % Low 38.8-50.0 [facility] Comment on above: Performed By: #### S CAN CBC, LYTES, BUN ####[place] [id number] [facility] Hemoglobin [Mass/volume] in BloodOrdered By: Federico Davis on 07-16-2023 Hemoglobin (Bld) [Mass/Vol] 11.0 g/dL Low 13.0-17.0 [facility] Comment on above: Performed By: #### S CAN CBC, LYTES, BUN ####[place] [id number] [facility] Hypochromia LM Ql (Bld)Order ed By: Federico Davis on 07-16-2023 Hypochromia Ql (Bld) Marked [facility] INR in Platelet poor plasma by Coagulation assayOrdered By: Federico Davis on 07-16-2023 INR Coag (PPP) [Relative time] 1.1 {INR} Normal [facility] Comment on above: INR Therapeutic Rang e [...] - 4.5 Performed By: #### P P ####[address] Leukocytes [#/volume] correc robert for nucleated erythrocytes in Blood by Automated counOrdered By: Federico Davis on 07-16-2023 WBC corrected for nucl RBC Auto (Bld) [#/Vol] 8.4 10*3/uL 4.1-10.5 [facility] Leukocytes [#/volume] in Blo od by Automated countOrdered By: Federico Davis on 07-16-2023 WBC (Bld) [#/Vol] 8.4 10*3/uL Normal 4.1-10.5 [facility] Comment on above: Performed By: #### S CAN CBC, LYTES, BUN ####[address] Lymphocytes [#/volume] in Bl ood by Automated countOrdered By: Federico Davis on 07-16-2023 Lymphocytes (Bld) [#/Vol] 0.7 10*3/uL Low 1.00-4.8 [facility] Comment on above: Performed By: #### S CAN CBC, LYTES, BUN ####[address] Lymphocytes/100 leukocytes i n Blood by Automated countOrdered By: Federico Davis on 07-16-2023 Lymphocytes/100 WBC (Bld) 8.4 % Normal . [facility] Comment on above: Performed By: #### S CAN CBC, LYTES, BUN ####[address] MCH [Entitic mass] by Automa robert countOrdered By: Federico Davis on 07-16-2023 MCH (RBC) [Entitic mass] 26.4 pg Low 27.5-35.2 [facility] Comment on above: Performed By: #### S CAN CBC, LYTES, BUN ####[facility] [id number] MCHC Auto (RBC) [Mass/Vol]Or dered By: Federico Davis on 07-16-2023 MCHC (RBC) [Mass/Vol] 32.8 g/dL 32.5-35.6 [facility] MCV [Entitic volume] by Auto mated countOrdered By: Federico Davis on 07-16-2023 MCV (RBC) [Entitic vol] 80.4 fL Low 83.5-101 [facility] Comment on above: Performed By: #### S CAN CBC, LYTES, BUN ####[address] Macrocytes LM Ql (Bld)Ordere d By: Federico Davis on 07-16-2023 Macrocytes Ql (Bld) Slight [facility] Neutrophils [#/volume] in Bl ood by Automated countOrdered By: Federico Davis on 07-16-2023 Neutrophils (Bld) [#/Vol] 6.3 10*3/uL Normal 1.8-7.7 [facility] Comment on above: Performed By: #### S CAN CBC, LYTES, BUN ####[address] No Panel InformationOrdered By: Federico Davis on 07-16-2023 Bedside Glucose Comment Glu2: cleaned meter [facility] Estimated GFR (CKD-EPI) > 60.0 mL/Min [facility] Creatinine Clearance (Chem N/A [facility] Nucleated erythrocytes [Pres ence] in Blood by Automated countOrdered By: Federico Davis on 07-16-2023 Nucleated RBC Auto Ql (Bld) 0.1 /100{WBC} 0-0.5 [facility] Platelet adequacy [Presence] in Blood by Light microscopyOrdered By: Federico Davis on 07-16-2023 Platelets LM Ql (Bld) Normal Normal [facility] Platelet mean volume [Entiti c volume] in Blood by Automated countOrdered By: Federico Davis on 07-16-2023 Platelet mean volume (Bld) [Entitic vol] 10.1 fL Normal 6.6-10.1 [facility] Comment on above: Performed By: #### S CAN CBC, LYTES, BUN ####[place] [id number] Platelet morphology finding [Identifier] in BloodOrdered By: Federico Davis on 07-16-2023 Platelet morphology finding Nom (Bld) N/A [facility] Platelets Large [Presence] i n Blood by Light microscopyOrdered By: Federico Davis on 07-16-2023 Platelets Large LM Ql (Bld) Slight [facility] Platelets [#/volume] in Bloo d by Automated countOrdered By: Federico Davis on 07-16-2023 Platelets (Bld) [#/Vol] 243 10*3/uL Normal 150-450 [facility] Comment on above: Performed By: #### S CAN CBC, LYTES, BUN ####[address] Poikilocytosis [Presence] in Blood by Light microscopyOrdered By: Federico Davis on 07-16-2023 Poikilocytosis LM Ql (Bld) Moderate [facility] Polychromasia [Presence] in Blood by Light microscopyOrdered By: Federico Davis on 07-16-2023 Polychromasia LM Ql (Bld) Moderate [facility] Potassium [Moles/volume] in Serum or PlasmaOrdered By: Federico Davis on 07-16-2023 Potassium [Moles/Vol] 4.2 mmol/L Normal 3.5-5.1 [facility] Comment on above: Performed By: #### S CAN CBC, LYTES, BUN ####[id number] [place] [id number] [facility] Prothrombin time (PT)Ordered By: Federico Davis on 07-16-2023 PT Coag (PPP) [Time] 12.3 s Normal 9.0-12.9 [facility] Comment on above: A hematocrit value g reater than 55% may lead to inaccurate results in coagulation testing. Patients having hematocrit values >55% require a special collection tube for coagulation studies. Please contact the laboratory at [phone] for redraw instructions. Result Comment: A he matocrit value greater than 55% may lead to inaccurate results in coagulation testing. Patients having hematocrit values >55% require a special collection tube for coagulation studies. Please contact the laboratory at [phone] for redraw instructions. Performed By: #### P P ####[address] RBC morphologyOrdered By: Federico Davis on 07-16-2023 RBC morphology finding Nom (Bld) N/A [facility] Scan and CBCon 07-16-2023 Hypochromasia Marked Normal [facility] Comment on above: Performed By: #### S CAN CBC, LYTES, BUN ####[place] [id number] [facility] Large Platelets Slight Normal [facility] Comment on above: Result Comment: PERF ORMED BY:[address] [place], [place] [phone] MEDICAL DIRECTORAIRAM MAST M.D. Performed By: #### S CAN CBC, LYTES, BUN ####[place] [id number] [facility] Macrocytosis Slight Normal [facility] Comment on above: Performed By: #### S CAN CBC, LYTES, BUN ####[place] [id number] [facility] Mean Corpuscular HGB Conc 32.8 g/dL Normal 32.5-35.6 [facility] Comment on above: Performed By: #### S CAN CBC, LYTES, BUN ####[place] [id number] [facility] NRBC% 0.1 /100{WBC} Normal 0-0.5 [facility] Comment on above: Performed By: #### S CAN CBC, LYTES, BUN ####[place] [address] [place] [address] [facility] Platelet Estimate Normal Normal [facility] Comment on above: Performed By: #### S CAN CBC, LYTES, BUN ####[place] [address] [place] [address] [facility] Poikilocytosis Moderate [facility] Comment on above: Performed By: #### S CAN CBC, LYTES, BUN ####[address] [address] [facility] Polychromasia Moderate [facility] Comment on above: Performed By: #### S CAN CBC, LYTES, BUN ####[place] [id number] Schistocytes Slight [facility] Comment on above: Performed By: #### S CAN CBC, LYTES, BUN ####[address] Target Cells Moderate [facility] Comment on above: Performed By: #### S CAN CBC, LYTES, BUN ####[place] [id number] [facility] Schistocytes [Presence] in B lood by Light microscopyOrdered By: Federico Davis on 07-16-2023 Schistocytes LM Ql (Bld) [facility] Serum or plasma anion gap de terminationOrdered By: Federico Davis on 07-16-2023 Anion gap [Moles/Vol] 12.4 mmol/L Normal 6.0-15.0 [facility] Comment on above: Performed By: #### S CAN CBC, LYTES, BUN ####[place] [id number] [facility] Sodium [Moles/volume] in Ser um or PlasmaOrdered By: Federico Davis on 07-16-2023 Sodium [Moles/Vol] 138 mmol/L Normal 136-145 [facility] Comment on above: Performed By: #### S CAN CBC, LYTES, BUN ####[address] Target cellsOrdered By: Federico espino on 07-16-2023 Target cells LM Ql (Bld) Moderate [facility] Urea nitrogen [Mass/volume] in Serum or PlasmaOrdered By: Federico Davis on 07-16-2023 Urea nitrogen [Mass/Vol] 16 mg/dL Normal 7-25 [facility] Comment on above: Result Comment: PERF ORMED BY:[facility] [place], [place] [phone] MEDICAL DIRECTORAIRAM MAST M.D. 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 ELECTRONICALLY SIGNED BY: Marie Betancourt, Normal Not Available ECG 12 Leadon 05-25-2023 Normal sinus rhythm, anterolateral ST T wave abnormality, abnormal ECG [facility] Work Phone: XR hip RT min 2V(w/wo pelvis )*on 05-21-2023 XR hip RT min 2V(w/wo pelvis)* Normal [facility] Glucose Glucometer (BldC) [M ass/Vol]Ordered By: Fredi Medrano on 05-08-2023 Glucose [Mass/Vol] 98 mg/dL [facility] Comment on above: Random Glucose Refer ence Range is dependent on time and content of last meal. Glucose of more than 200 mg/dL in a nonstressed, ambulatory subject supports the diagnosis of Diabetes Mellitus. Glucose Poct Glucometerson 1 Commemt1 Glu2: Cleaned Meter [facility] Comment on above: Result Comment: PERF ORMED BY:[place] [address] [address] [place], [place] [phone] MEDICAL DIRECTORAIRAM MAST M.D. Performed By: #### G LULS ####Point of Care testing, Glucose [Mass/Vol] 98 mg/dL Normal [facility] Comment on above: Result Comment: [place] [facility] Glucose Reference Range is dependent on time and content of last meal. Glucose of more than 200 mg/dL in a nonstressed, ambulatory subject supports the diagnosis of Diabetes Mellitus. Performed By: #### G LULS ####Point of Care testing, No Panel InformationOrdered By: Fredi Medrano on 05-08-2023 Bedside Glucose Comment Glu2: cleaned meter [facility] Glucose Poct Glucometerson 1 Glucose [Mass/Vol] 146 mg/dL Normal [facility] Comment on above: Result Comment: [place] [facility] Glucose Reference Range is dependent on time and content of last meal. Glucose of more than 200 mg/dL in a nonstressed, ambulatory subject supports the diagnosis of Diabetes Mellitus.PERFORMED BY:[place] [address] [address] [place] [place], [place] [phone] MEDICAL DIRECTORAIRAM MAST M.D. Performed By: #### G LULS ####Point of Care testing, Commemt1 Glu2: Cleaned Meter [facility] Comment on above: Result Comment: PERF ORMED BY:[place] [address] [address] [place] [phone] MEDICAL DIRECTORAIRAM MAST M.D. Performed By: #### G LULS ####Point of Care testing, Glucose [Mass/Vol] 164 mg/dL Normal [facility] Comment on above: Result Comment: [place] [facility] Glucose Reference Range is dependent on time and content of last meal. Glucose of more than 200 mg/dL in a nonstressed, ambulatory subject supports the diagnosis of Diabetes Mellitus. Performed By: #### G LULS ####Point of Care testing, Commemt1 Glu2: Cleaned Meter Normal [facility] Comment on above: Result Comment: PERF ORMED BY:[place] [address] [address] [place] [place], [place] [phone] MEDICAL DIRECTORAIRAM MAST M.D. Performed By: #### G LULS ####Point of Care testing, Glucose [Mass/Vol] 238 mg/dL Normal [facility] Comment on above: Result Comment: [place] Glucose Reference Range is dependent on time and content of last meal. Glucose of more than 200 mg/dL in a nonstressed, ambulatory subject supports the diagnosis of Diabetes Mellitus. Performed By: #### G LULS ####Point of Care testing, Glucose [Mass/Vol] 112 mg/dL Normal [facility] Comment on above: Result Comment: [place] [facility] Glucose Reference Range is dependent on time and content of last meal. Glucose of more than 200 mg/dL in a nonstressed, ambulatory subject supports the diagnosis of Diabetes Mellitus.PERFORMED BY:[place] [address] [address] [place] [place], [place] [phone] MEDICAL HUMBLE MAST M.D. Performed By: #### G LULS ####Point of Care testing, Glucose [Mass/Vol] 67 mg/dL Normal [facility] Comment on above: Result Comment: [place] Glucose Reference Range is dependent on time and content of last meal. Glucose of more than 200 mg/dL in a nonstressed, ambulatory subject supports the diagnosis of Diabetes Mellitus.PERFORMED BY:[place] [address] [address] [place] [place], [place] [phone] MEDICAL HUMBLE MAST M.D. Performed By: #### G LULS ####Point of Care testing, Glucose Poct Glucometerson 1 Glucose [Mass/Vol] 258 mg/dL Normal [facility] Comment on above: Result Comment: [place] [facility] Glucose Reference Range is dependent on time and content of last meal. Glucose of more than 200 mg/dL in a nonstressed, ambulatory subject supports the diagnosis of Diabetes Mellitus.PERFORMED BY:[place] [address] [address] [place], [place] [phone] MEDICAL DIRECTORAIRAM MAST M.D. Performed By: #### G LULS ####Point of Care testing, Commemt1 Glu2: Cleaned Meter [facility] Comment on above: Result Comment: PERF ORMED BY:[address] [place], [place] [phone] MEDICAL DIRECTORAIRAM MAST M.D. Performed By: #### G LULS ####Point of Care testing, Glucose [Mass/Vol] 308 mg/dL Normal [facility] Comment on above: Result Comment: [place] [facility] Glucose Reference Range is dependent on time and content of last meal. Glucose of more than 200 mg/dL in a nonstressed, ambulatory subject supports the diagnosis of Diabetes Mellitus. Performed By: #### G LULS ####Point of Care testing, Commemt1 Glu2: Cleaned Meter [facility] Comment on above: Result Comment: PERF ORMED BY:[address] [place] [place], [place] [phone] MEDICAL DIRECTORAIRAM MAST M.D. Performed By: #### G LULS ####Point of Care testing, Glucose [Mass/Vol] 222 mg/dL Normal [facility] Comment on above: Result Comment: [place] [facility] Glucose Reference Range is dependent on time and content of last meal. Glucose of more than 200 mg/dL in a nonstressed, ambulatory subject supports the diagnosis of Diabetes Mellitus. Performed By: #### G LULS ####Point of Care testing, Glucose [Mass/Vol] 114 mg/dL Normal [facility] Comment on above: Result Comment: [facility] Glucose Reference Range is dependent on time and content of last meal. Glucose of more than 200 mg/dL in a nonstressed, ambulatory subject supports the diagnosis of Diabetes Mellitus.PERFORMED BY:[place] [address] [address] GORDONOdalisKESHATOA [place], [place] [phone] MEDICAL HUMBLE MAST M.D. Performed By: #### G LULS ####Point of Care testing, Glucose Poct Glucometerson 1 Glucose [Mass/Vol] 141 mg/dL Normal [facility] Comment on above: Result Comment: [facility] Glucose Reference Range is dependent on time and content of last meal. Glucose of more than 200 mg/dL in a nonstressed, ambulatory subject supports the diagnosis of Diabetes Mellitus.PERFORMED BY:[address] GORDONLIZZYKESHATOA [place], [place] [phone] MEDICAL HUMBLE MAST M.D. Performed By: #### G LULS ####Point of Care testing, Glucose [Mass/Vol] 153 mg/dL Normal [facility] Comment on above: Result Comment: [facility] Glucose Reference Range is dependent on time and content of last meal. Glucose of more than 200 mg/dL in a nonstressed, ambulatory subject supports the diagnosis of Diabetes Mellitus.PERFORMED BY:[place] [address] [address] CARMEN[place]TOA [place], [place] [phone] MEDICAL HUMBLE MAST M.D. Performed By: #### G LULS ####Point of Care testing, Commemt1 Glu2: Cleaned Meter Normal [facility] Comment on above: Result Comment: PERF ORMED BY:[place] [address] [address] [place], [place] [phone] KRYSTAL MAST M.D. Performed By: #### G LULS ####Point of Care testing, Glucose [Mass/Vol] 224 mg/dL Normal [facility] Comment on above: Result Comment: [facility] Glucose Reference Range is dependent on time and content of last meal. Glucose of more than 200 mg/dL in a nonstressed, ambulatory subject supports the diagnosis of Diabetes Mellitus. Performed By: #### G LULS ####Point of Care testing, Glucose [Mass/Vol] 106 mg/dL Normal [facility] Comment on above: Result Comment: [facility] Glucose Reference Range is dependent on time and content of last meal. Glucose of more than 200 mg/dL in a nonstressed, ambulatory subject supports the diagnosis of Diabetes Mellitus.PERFORMED BY:[address] [place], [place] [phone] MEDICAL DIRECTORAIRAM MAST M.D. Performed By: #### G LUMARYA ####Point of Care testing, Glucose [Mass/Vol] 124 mg/dL Normal [facility] Comment on above: Result Comment: [facility] Glucose Reference Range is dependent on time and content of last meal. Glucose of more than 200 mg/dL in a nonstressed, ambulatory subject supports the diagnosis of Diabetes Mellitus.PERFORMED BY:[address] [place]ORDONOdalisKES[place], [place] [phone] MEDICAL DIRECTORAIRAM MAST M.D. Performed By: #### G LUMARYA ####Point of Care testing, Alanine aminotransferase [En zymatic activity/volume] in Serum or PlasmaOrdered By: Fredi Medrano on 05-04-2023 ALT [Catalytic activity/Vol] 14 U/L 7-52 [facility] Albumin [Mass/volume] in Ser um or Plasma by Bromocresol green (BCG) dye binding methoOrdered By: Fredi Medrano on 05-04-2023 Albumin BCG dye [Mass/Vol] 2.9 g/dL 3.5-5.7 [facility] Alkaline phosphatase [Enzyma tic activity/volume] in Serum or PlasmaOrdered By: Fredi Medrano on 05-04-2023 ALP [Catalytic activity/Vol] 87 U/L 34-104 [facility] Aspartate aminotransferase [ Enzymatic activity/volume] in Serum or PlasmaOrdered By: Fredi Medrano on 05-04-2023 AST [Catalytic activity/Vol] 20 U/L 13-39 [facility] Basophils Auto (Bld) [#/Vol] Ordered By: Fredi Medrano on 05-04-2023 Basophils (Bld) [#/Vol] 0.0 10*3/uL 0.0-0.2 [facility] Basophils/100 WBC Auto (Bld) Ordered By: Fredi Medrano on 05-04-2023 Basophils/100 WBC (Bld) 0.7 % . [facility] Bilirubin.total [Mass/volume ] in Serum or PlasmaOrdered By: [facility] on 05-04-2023 Bilirubin [Mass/Vol] 0.5 mg/dL 0.3-1.0 [facility] Calcium [Mass/volume] in Ser um or PlasmaOrdered By: [facility] on 05-04-2023 Calcium [Mass/Vol] 8.0 mg/dL 8.6-10.3 [facility] Carbon dioxide, total [Moles /volume] in Serum or PlasmaOrdered By: Fredi Medrano on 05-04-2023 CO2 [Moles/Vol] 28.0 mmol/L 21.0-31.0 [facility] Chloride [Moles/volume] in S jihan or PlasmaOrdered By: Fredi [facility] on 05-04-2023 Chloride [Moles/Vol] 102 mmol/L 98-107 [facility] Complete Blood Count Auto Di ffon 05-04-2023 Basophils (Bld) [#/Vol] 0.0 10*3/uL Normal 0.0-0.2 [facility] Comment on above: Result Comment: PERF ORMED BY:[facility] [place], [place] [phone] MEDICAL DIRECTORAIRAM MAST M.D. Performed By: #### P AB, CBC, CMP ####[facility] [address] [place] [address] [facility] Basophils/100 WBC (Bld) 0.7 % Normal . [facility] Comment on above: Performed By: #### P AB, CBC, CMP ####[address] Eosinophils (Bld) [#/Vol] 0.1 10*3/uL Normal 0.0-0.45 [facility] Comment on above: Performed By: #### P AB, CBC, CMP ####[address] Eosinophils/100 WBC (Bld) 1.5 % Normal . [facility] Comment on above: Performed By: #### P AB, CBC, CMP ####[address] Erythrocyte distribution width (RBC) [Ratio] 16.8 % High 12.0-14.8 [facility] Comment on above: Performed By: #### P AB, CBC, CMP ####[address] Hematocrit (Bld) [Volume fraction] 29.3 % Low 38.8-50.0 [facility] Comment on above: Performed By: #### P AB, CBC, CMP ####[address] Hemoglobin (Bld) [Mass/Vol] 9.7 g/dL Low 13.0-17.0 [facility] Comment on above: Performed By: #### P AB, CBC, CMP ####[address] Lymphocytes (Bld) [#/Vol] 1.6 10*3/uL Normal 1.00-4.8 [facility] Comment on above: Performed By: #### P AB, CBC, CMP ####[address] Lymphocytes/100 WBC (Bld) 23.0 % Normal . [facility] Comment on above: Performed By: #### P AB, CBC, CMP ####[address] MCH (RBC) [Entitic mass] 27.9 pg Normal 27.5-35.2 [facility] Comment on above: Performed By: #### P AB, CBC, CMP ####[address] MCV (RBC) [Entitic vol] 84.6 fL Normal 83.5-101 [facility] Comment on above: Performed By: #### P AB, CBC, CMP ####[address] Mean Corpuscular HGB Conc 33.0 g/dL Normal 32.5-35.6 [facility] Comment on above: Performed By: #### P AB, CBC, CMP ####[address] Monocytes (Bld) [#/Vol] 0.7 10*3/uL Normal 0.0-0.8 [facility] Comment on above: Performed By: #### P AB, CBC, CMP ####[address] Monocytes/100 WBC (Bld) 9.9 % Normal . [facility] Comment on above: Performed By: #### P AB, CBC, CMP ####[address] Neutrophils (Bld) [#/Vol] 4.6 10*3/uL Normal 1.8-7.7 [facility] Comment on above: Performed By: #### P AB, CBC, CMP ####[address] Neutrophils/100 WBC (Bld) 64.9 % Normal . [facility] Comment on above: Performed By: #### P AB, CBC, CMP ####[address] NRBC% 0.2 /100{WBC} Normal 0-0.5 [facility] Comment on above: Performed By: #### P AB, CBC, CMP ####[address] Platelet mean volume (Bld) [Entitic vol] 8.9 fL Normal 6.6-10.1 [facility] Comment on above: Performed By: #### P AB, CBC, CMP ####[place] [id number] [facility] Platelets (Bld) [#/Vol] 218 10*3/uL Normal 150-450 [facility] Comment on above: Performed By: #### P AB, CBC, CMP ####[address] RBC (Bld) [#/Vol] 3.46 10*6/uL Low 3.90-5.60 [facility] Comment on above: Performed By: #### P AB, CBC, CMP ####[address] WBC (Bld) [#/Vol] 7.2 10*3/uL Normal 4.1-10.5 [facility] Comment on above: Performed By: #### P AB, CBC, CMP ####[address] Comprehensive Metabolic Pane jairo 05-04-2023 Albumin [Mass/Vol] 2.9 g/dL Low 3.5-5.7 [facility] Comment on above: Performed By: #### P AB, CBC, CMP ####[address] Albumin/Globulin [Mass ratio] 1.2 {ratio} Normal [facility] Comment on above: Performed By: #### P AB, CBC, CMP ####[place] [id number] [facility] ALP [Catalytic activity/Vol] 87 U/L Normal 34-104 [facility] Comment on above: Performed By: #### P AB, CBC, CMP ####[place] [id number] [facility] ALT [Catalytic activity/Vol] 14 U/L Normal 7-52 [facility] Comment on above: Performed By: #### P AB, CBC, CMP ####[place] [id number] [facility] Anion gap [Moles/Vol] 8.6 mmol/L Normal 6.0-15.0 [facility] Comment on above: Performed By: #### P AB, CBC, CMP ####[address] [address] [facility] AST [Catalytic activity/Vol] 20 U/L Normal 13-39 [facility] Comment on above: Performed By: #### P AB, CBC, CMP ####[place] [id number] [facility] Bilirubin [Mass/Vol] 0.5 mg/dL Normal 0.3-1.0 [facility] Comment on above: Performed By: #### P AB, CBC, CMP ####[place] [id number] [facility] Calcium [Mass/Vol] 8.0 mg/dL Low 8.6-10.3 [facility] Comment on above: Performed By: #### P AB, CBC, CMP ####[place] [id number] [facility] Chloride [Moles/Vol] 102 mmol/L Normal 98-107 [facility] Comment on above: Performed By: #### P AB, CBC, CMP ####[place] [id number] [facility] CO2 [Moles/Vol] 28.0 mmol/L Normal 21.0-31.0 [facility] Comment on above: Performed By: #### P AB, CBC, CMP ####[place] [address] [facility] Creatinine [Mass/Vol] 0.61 mg/dL Low 0.70-1.30 [facility] Comment on above: Performed By: #### P AB, CBC, CMP ####[address] [address] [facility] Creatinine Clr Calc Pharmacy 62.25 Normal [facility] Comment on above: Performed By: #### P AB, CBC, CMP ####[place] [id number] [facility] GFR/1.73 sq M.predicted MDRD (S/P/Bld) [Vol rate/Area] mL/min/{1.73_m2} [facility] Comment on above: Performed By: #### P AB, CBC, CMP ####[address] Globulin (S) [Mass/Vol] 2.5 g/dL [facility] Comment on above: Performed By: #### P AB, CBC, CMP ####[address] Glucose [Mass/Vol] 120 mg/dL High 70-100 [facility] Comment on above: Result Comment: [facility] Glucose Reference Range is dependent on time and content of last meal. Glucose of more than 200 mg/dL in a nonstressed, ambulatory subject supports the diagnosis of Diabetes Mellitus. ADA recommended reference range Performed By: #### P AB, CBC, CMP ####[address] Potassium [Moles/Vol] 4.6 mmol/L Normal 3.5-5.1 [facility] Comment on above: Performed By: #### P AB, CBC, CMP ####[address] Protein [Mass/Vol] 5.4 g/dL Low 6.4-8.9 [facility] Comment on above: Performed By: #### P AB, CBC, CMP ####[place] [id number] [facility] Sodium [Moles/Vol] 134 mmol/L Low 136-145 [facility] Comment on above: Performed By: #### P AB, CBC, CMP ####[place] [id number] [facility] Urea nitrogen [Mass/Vol] 22 mg/dL Normal 7-25 [facility] Comment on above: Performed By: #### P AB, CBC, CMP ####[place] [id number] [facility] Creatinine [Mass/volume] in Serum or PlasmaOrdered By: Fredi Medrano on 05-04-2023 Creatinine [Mass/Vol] 0.61 mg/dL 0.70-1.30 [facility] Eosinophils Auto (Bld) [#/Vo l]Ordered By: Fredi Medrano on 05-04-2023 Eosinophils (Bld) [#/Vol] 0.1 10*3/uL 0.0-0.45 [facility] Eosinophils/100 WBC Auto (Bl d)Ordered By: Fredi Medrano on 05-04-2023 Eosinophils/100 WBC (Bld) 1.5 % . [facility] Erythrocyte distribution wid th Auto (RBC) [Ratio]Ordered By: Fredi Medrano on 05-04-2023 Erythrocyte distribution width (RBC) [Ratio] 16.8 % 12.0-14.8 [facility] Globulin Calc (S) [Mass/Vol] Ordered By: Fredi Medrano on 05-04-2023 Globulin (S) [Mass/Vol] 2.5 g/dL [facility] Glucose Poct Glucometerson 1 Glucose [Mass/Vol] 125 mg/dL Normal [facility] Comment on above: Result Comment: [facility] Glucose Reference Range is dependent on time and content of last meal. Glucose of more than 200 mg/dL in a nonstressed, ambulatory subject supports the diagnosis of Diabetes Mellitus.PERFORMED BY:[place] [address] [address] [place], [place] [phone] MEDICAL HUMBLE MAST M.D. Performed By: #### G LULS ####Point of Care testing, Glucose [Mass/Vol] 210 mg/dL Normal [facility] Comment on above: Result Comment: [facility] Glucose Reference Range is dependent on time and content of last meal. Glucose of more than 200 mg/dL in a nonstressed, ambulatory subject supports the diagnosis of Diabetes Mellitus.PERFORMED BY:[place] [address] [address] [place], [place] [phone] MEDICAL HUMBLE MAST M.D. Performed By: #### G LULS ####Point of Care testing, Glucose [Mass/Vol] 213 mg/dL Normal [facility] Comment on above: Result Comment: [place] [facility] Glucose Reference Range is dependent on time and content of last meal. Glucose of more than 200 mg/dL in a nonstressed, ambulatory subject supports the diagnosis of Diabetes Mellitus.PERFORMED BY:[facility] [place], [place] [phone] MEDICAL DIRECTORAIRAM MAST M.D. Performed By: #### G LULS ####Point of Care testing, Commemt1 Glu2: Cleaned Meter Normal [facility] Comment on above: Result Comment: PERF ORMED BY:[place] [id number] [place], [place] [phone] MEDICAL DIRECTORAIRAM MAST M.D. Performed By: #### G LULS ####Point of Care testing, Glucose [Mass/Vol] 197 mg/dL Normal [facility] Comment on above: Result Comment: [place] om Glucose Reference Range is dependent on time and content of last meal. Glucose of more than 200 mg/dL in a nonstressed, ambulatory subject supports the diagnosis of Diabetes Mellitus. Performed By: #### G LULS ####Point of Care testing, Glucose [Mass/volume] in Ser um or PlasmaOrdered By: Fredi Medrano on 05-04-2023 Glucose [Mass/Vol] 120 mg/dL 70-100 [facility] Comment on above: ADA recommended refe rence rangeRandom Glucose Reference Range is dependent on time and content of last meal. Glucose of more than 200 mg/dL in a nonstressed, ambulatory subject supports the diagnosis of Diabetes Mellitus. Hematocrit Auto (Bld) [Volum e fraction]Ordered By: Fredi Medrano on 05-04-2023 Hematocrit (Bld) [Volume fraction] 29.3 % 38.8-50.0 [facility] Hemoglobin [Mass/volume] in BloodOrdered By: Fredi Medrano on 05-04-2023 Hemoglobin (Bld) [Mass/Vol] 9.7 g/dL 13.0-17.0 [facility] Leukocytes [#/volume] correc robert for nucleated erythrocytes in Blood by Automated counOrdered By: Fredi Medrano on 05-04-2023 WBC corrected for nucl RBC Auto (Bld) [#/Vol] 7.2 10*3/uL 4.1-10.5 [facility] Lymphocytes Auto (Bld) [#/Vo l]Ordered By: Fredi Medrano on 05-04-2023 Lymphocytes (Bld) [#/Vol] 1.6 10*3/uL 1.00-4.8 [facility] Lymphocytes/100 WBC Auto (Bl d)Ordered By: Fredi Medrano on 05-04-2023 Lymphocytes/100 WBC (Bld) 23.0 % . [facility] MCH Auto (RBC) [Entitic mass ]Ordered By: Fredi Medrano on 05-04-2023 MCH (RBC) [Entitic mass] 27.9 pg 27.5-35.2 [facility] MCHC Auto (RBC) [Mass/Vol]Or dered By: Fredi Medrano on 05-04-2023 MCHC (RBC) [Mass/Vol] 33.0 g/dL 32.5-35.6 [facility] MCV Auto (RBC) [Entitic vol] Ordered By: Fredi Medrano on 05-04-2023 MCV (RBC) [Entitic vol] 84.6 fL 83.5-101 [facility] Monocytes Auto (Bld) [#/Vol] Ordered By: Fredi Medrano on 05-04-2023 Monocytes (Bld) [#/Vol] 0.7 10*3/uL 0.0-0.8 [facility] Monocytes/100 WBC Auto (Bld) Ordered By: Fredi Medrano on 05-04-2023 Monocytes/100 WBC (Bld) 9.9 % . [facility] Neutrophils Auto (Bld) [#/Vo l]Ordered By: Fredi Medrano on 05-04-2023 Neutrophils (Bld) [#/Vol] 4.6 10*3/uL 1.8-7.7 [facility] Neutrophils/100 WBC Auto (Bl d)Ordered By: Fredi Medrano on 05-04-2023 Neutrophils/100 WBC (Bld) 64.9 % . [facility] No Panel InformationOrdered By: Fredi Medrano on 05-04-2023 Estimated GFR (CKD-EPI) > 60.0 mL/Min [facility] Creatinine Clearance (Chem 62.25 [facility] Nucleated erythrocytes [Pres ence] in Blood by Automated countOrdered By: Fredi Medrano on 05-04-2023 Nucleated RBC Auto Ql (Bld) 0.2 /100{WBC} 0-0.5 [facility] Platelet mean volume Auto (B ld) [Entitic vol]Ordered By: Fredi Medrano on 05-04-2023 Platelet mean volume (Bld) [Entitic vol] 8.9 fL 6.6-10.1 [facility] Platelets Auto (Bld) [#/Vol] Ordered By: Fredi Medrano on 05-04-2023 Platelets (Bld) [#/Vol] 218 10*3/uL 150-450 [facility] Potassium [Moles/volume] in Serum or PlasmaOrdered By: Fredi Medrano on 05-04-2023 Potassium [Moles/Vol] 4.6 mmol/L 3.5-5.1 [facility] Prealbuminon 05-04-2023 Prealbumin [Mass/Vol] 10.2 mg/dL Low 17.0-34.0 [facility] Comment on above: Result Comment: PERF ORMED BY:[facility] [place], [place] [phone] MEDICAL DIRECTORAIRAM MAST M.D. Performed By: #### P AB, CBC, CMP ####[facility] [place] [address] [facility] Prealbumin [Mass/volume] in Serum or PlasmaOrdered By: Fredi Medrano on 05-04-2023 Prealbumin [Mass/Vol] 10.2 mg/dL 17.0-34.0 [facility] Protein [Mass/volume] in Ser um or PlasmaOrdered By: Fredi Medrano on 05-04-2023 Protein [Mass/Vol] 5.4 g/dL 6.4-8.9 [facility] RBC Auto (Bld) [#/Vol]Ordere d By: Fredi Medrano on 05-04-2023 RBC (Bld) [#/Vol] 3.46 10*6/uL 3.90-5.60 [facility] Serum or plasma albumin/glob ulin mass ratioOrdered By: Fredi Medrano on 05-04-2023 Albumin/Globulin [Mass ratio] 1.2 {ratio} [facility] Serum or plasma anion gap de terminationOrdered By: Fredi Medrano on 05-04-2023 Anion gap [Moles/Vol] 8.6 mmol/L 6.0-15.0 [facility] Sodium [Moles/volume] in Ser um or PlasmaOrdered By: Fredi Medrano on 05-04-2023 Sodium [Moles/Vol] 134 mmol/L 136-145 [facility] Urea nitrogen [Mass/volume] in Serum or PlasmaOrdered By: Fredi Medrano on 05-04-2023 Urea nitrogen [Mass/Vol] 22 mg/dL 7-25 [facility] WBC Auto (Bld) [#/Vol]Ordere d By: Fredi Medrano on 05-04-2023 WBC (Bld) [#/Vol] 7.2 10*3/uL 4.1-10.5 [facility] Cholesterol [Mass/volume] in Serum or PlasmaOrdered By: Anat Perez on 05-03-2023 Cholesterol [Mass/Vol] 98 mg/dL 140-200 [facility] Comment on above: Chol less than 200 m g/dl low riskChol 201-239 mg/dl borderline riskChol 240 mg/dl and greater high risk Cholesterol in LDL Calc [Mas s/Vol]Ordered By: Anat Perez on 05-03-2023 Cholesterol in LDL [Mass/Vol] 46 mg/dL 0-100 [facility] Comment on above: LDL ATP III CLASSIFI CATIONLDL less than 100 mg/dL OptimalLDL 100-129 mg/dL Near or above optimalLDL 130-159 mg/dL Borderline highLDL 160-189 mg/dL HighLDL greater than 189 mg/dL Very high Cholesterol in VLDL Calc [Ma ss/Vol]Ordered By: Anat Perez on 05-03-2023 Cholesterol in VLDL [Mass/Vol] 12 mg/dL [facility] Glucose Glucometer (BldC) [M ass/Vol]Ordered By: Humberto Diaz on 05-03-2023 Glucose [Mass/Vol] 388 mg/dL [facility] Comment on above: Random Glucose Refer ence Range is dependent on time and content of last meal. Glucose of more than 200 mg/dL in a nonstressed, ambulatory subject supports the diagnosis of Diabetes Mellitus. Glucose Poct Glucometerson 1 Glucose [Mass/Vol] 385 mg/dL Normal [facility] Comment on above: Result Comment: [facility] Glucose Reference Range is dependent on time and content of last meal. Glucose of more than 200 mg/dL in a nonstressed, ambulatory subject supports the diagnosis of Diabetes Mellitus.PERFORMED BY:[place] [address] [place], [place] [phone] MEDICAL DIRECTORAIRAM MAST M.D. Performed By: #### G LULS ####Point of Care testing, Glucose [Mass/Vol] 379 mg/dL Normal [facility] Comment on above: Result Comment: [facility] Glucose Reference Range is dependent on time and content of last meal. Glucose of more than 200 mg/dL in a nonstressed, ambulatory subject supports the diagnosis of Diabetes Mellitus.PERFORMED BY:[place] [address] [place], [place] [phone] MEDICAL DIRECTORAIRAM MAST M.D. Performed By: #### G LULS ####Point of Care testing, Glucose [Mass/Vol] 388 mg/dL Normal [facility] Comment on above: Result Comment: [facility] Glucose Reference Range is dependent on time and content of last meal. Glucose of more than 200 mg/dL in a nonstressed, ambulatory subject supports the diagnosis of Diabetes Mellitus.PERFORMED BY:[address], [place] [phone] MEDICAL DIRECTORAIRAM MAST M.D. Performed By: #### G RIOS ####Point of Care testing, Glucose [Mass/Vol] 310 mg/dL Normal [facility] Comment on above: Result Comment: [place] Glucose Reference Range is dependent on time and content of last meal. Glucose of more than 200 mg/dL in a nonstressed, ambulatory subject supports the diagnosis of Diabetes Mellitus.PERFORMED BY:[place] [address] [place], [place] [phone] MEDICAL DIRECTORAIRAM MAST M.D. Performed By: #### G RIOS ####Point of Care testing, Lipid Panelon 05-03-2023 Cholesterol [Mass/Vol] 98 mg/dL Low 140-200 [facility] Comment on above: Result Comment: Chol less than 200 mg/dl low risk Chol 201-239 mg/dl borderline risk Chol 240 mg/dl and greater high risk Performed By: #### L IPID ####[address] [address] [facility] Cholesterol in HDL [Mass/Vol] 39 mg/dL Normal 23-92 [facility] Comment on above: Result Comment: HDL CHOL ATP-III CLASSIFICATION Cardiovascular Risk HDL > or equal to 60 mg/dL LOW HDL < 40 mg/dL HIGH Performed By: #### L IPID ####[address] [address] [facility] Cholesterol.total/Cho lesterol in HDL [Mass ratio] 2.5 {ratio} Normal <5.0 [facility] Comment on above: Result Comment: PERF ORMED BY:[place] [address] [place] [phone] MEDICAL DIRECTORAIRAM MAST M.D. Performed By: #### L IPID ####[address] [address] [facility] LDL Cholesterol,Calculate d 46 mg/dL Normal 0-100 [facility] Comment on above: Result Comment: LDL ATP III CLASSIFICATION LDL less than 100 mg/dL Optimal LDL 100-129 mg/dL Near or above optimal LDL 130-159 mg/dL Borderline high LDL 160-189 mg/dL High LDL greater than 189 mg/dL Very high Performed By: #### L IPID ####[facility] [id number] Triglyceride w/Reflex 64 mg/dL Normal 0-149 [facility] Comment on above: Result Comment: TRIG ATP III CLASSIFICATION TRIG less than 150 mg/dL Normal TRIG 150-199 mg/dL Borderline high TRIG 200-500 mg/dL High TRIG greater than 500 mg/dL Very high Standard traceable to the Center for Disease Conrtrol and Prevention (CDC) test method. Performed By: #### L IPID ####[facility] [id number] VLDL CHOLESTEROL 12 mg/dL Normal [facility] Comment on above: Performed By: #### L IPID ####[facility] [id number] Serum or plasma high density lipoprotein (HDL) cholesterol measurementOrdered By: Anat Perez on 05-03-2023 Cholesterol in HDL [Mass/Vol] 39 mg/dL [facility] Comment on above: HDL CHOL ATP-III CLA SSIFICATION Cardiovascular RiskHDL > or equal to 60 mg/dL LOWHDL < 40 mg/dL HIGH Serum or plasma total choles terol/high density lipoprotein (HDL) cholesterol mass ratOrdered By: Anat Perez on 05-03-2023 Cholesterol.total/Cho lesterol in HDL [Mass ratio] 2.5 {ratio} <5.0 [facility] Triglyceride [Mass/volume] i n Serum or PlasmaOrdered By: Anat Perez on 05-03-2023 Triglyceride [Mass/Vol] 64 mg/dL 0-149 [facility] Comment on above: TRIG ATP III CLASSIF ICATIONTRIG less than 150 mg/dL NormalTRIG 150-199 mg/dL Borderline highTRIG 200-500 mg/dL High TRIG greater than 500 mg/dL Very highStandard traceable to the Center for Disease Conrtrol and Prevention (CDC) test method. Basic Metabolic Panelon 04-12 Anion gap [Moles/Vol] 8.1 mmol/L Normal 6.0-15.0 [facility] Comment on above: Performed By: #### C BC BMP, LIPID ####[id number] [place] [address] [facility] Calcium [Mass/Vol] 8.0 mg/dL Low 8.6-10.3 [facility] Comment on above: Performed By: #### C BC BMP, LIPID ####[place] [place] [address] [facility] Chloride [Moles/Vol] 97 mmol/L Low 98-107 [facility] Comment on above: Performed By: #### C DENISE BMP, LIPID ####[id number] [place] [address] [facility] CO2 [Moles/Vol] 30.1 mmol/L Normal 21.0-31.0 [facility] Comment on above: Performed By: #### C DENISE BMP, LIPID ####[address] [address] [facility] Creatinine [Mass/Vol] 0.86 mg/dL Normal 0.70-1.30 [facility] Comment on above: Performed By: #### C DENISE BMP, LIPID ####[address] [place] [address] [place] Creatinine Clr Calc Pharmacy 59.22 [facility] Comment on above: Performed By: #### C DENISE BMP, LIPID ####[place] [address] [place] [address] [place] GFR/1.73 sq M.predicted MDRD (S/P/Bld) [Vol rate/Area] mL/min/{1.73_m2} [facility] Comment on above: Performed By: #### C DENISE BMP, LIPID ####[place] [address] [place] [address] [facility] Glucose [Mass/Vol] 87 mg/dL Normal 70-100 [facility] Comment on above: Result Comment: [place] Glucose Reference Range is dependent on time and content of last meal. Glucose of more than 200 mg/dL in a nonstressed, ambulatory subject supports the diagnosis of Diabetes Mellitus. ADA recommended reference range Performed By: #### C BC BMP, LIPID ####[facility] [id number] Potassium [Moles/Vol] 4.2 mmol/L Normal 3.5-5.1 [facility] Comment on above: Performed By: #### C BC, BMP, LIPID ####[facility] [id number] Sodium [Moles/Vol] 131 mmol/L Low 136-145 [facility] Comment on above: Performed By: #### C DENISE BMP, LIPID ####[facility] Urea nitrogen [Mass/Vol] 21 mg/dL Normal 7-25 [facility] Comment on above: Performed By: #### C DENISE BMP, LIPID ####[facility] [id number] Basophils Auto (Bld) [#/Vol] Ordered By: Sushant Cordon on 05-02-2023 Basophils (Bld) [#/Vol] 0.0 10*3/uL 0.0-0.2 [facility] Basophils/100 WBC Auto (Bld) Ordered By: Sushant Cordon on 05-02-2023 Basophils/100 WBC (Bld) 0.1 % . [facility] Calcium [Mass/volume] in Ser um or PlasmaOrdered By: Sushant Cordon on 05-02-2023 Calcium [Mass/Vol] 8.0 mg/dL 8.6-10.3 [facility] Carbon dioxide, total [Moles /volume] in Serum or PlasmaOrdered By: Sushant Cordon on 05-02-2023 CO2 [Moles/Vol] 30.1 mmol/L 21.0-31.0 [facility] Chloride [Moles/volume] in S jihan or PlasmaOrdered By: Sushant Cordon on 05-02-2023 Chloride [Moles/Vol] 97 mmol/L 98-107 [facility] Complete Blood Count Auto Di ffon 05-02-2023 Basophils (Bld) [#/Vol] 0.0 10*3/uL Normal 0.0-0.2 [facility] Comment on above: Result Comment: PERF ORMED BY:[address] [place], [place] [id number] MEDICAL DIRECTORAIRAM MAST M.D. Performed By: #### C BC, BMP, LIPID ####[address] [address] [facility] Basophils/100 WBC (Bld) 0.1 % Normal . [facility] Comment on above: Performed By: #### C BC, BMP, LIPID ####[address] [address] [facility] Eosinophils (Bld) [#/Vol] 0.1 10*3/uL Normal 0.0-0.45 [facility] Comment on above: Performed By: #### C BC, BMP, LIPID ####[address] [address] [facility] Eosinophils/100 WBC (Bld) 0.8 % Normal . [facility] Comment on above: Performed By: #### C BC, BMP, LIPID ####[address] [address] [facility] Erythrocyte distribution width (RBC) [Ratio] 17.0 % High 12.0-14.8 [facility] Comment on above: Performed By: #### C BC, BMP, LIPID ####[address] [address] [facility] Hematocrit (Bld) [Volume fraction] 27.8 % Low 38.8-50.0 [facility] Comment on above: Performed By: #### C BC, BMP, LIPID ####[address] [address] [facility] Hemoglobin (Bld) [Mass/Vol] 9.3 g/dL Low 13.0-17.0 [facility] Comment on above: Performed By: #### C BC, BMP, LIPID ####[address] Lymphocytes (Bld) [#/Vol] 1.2 10*3/uL Normal 1.00-4.8 [facility] Comment on above: Performed By: #### C BC, BMP, LIPID ####[address] Lymphocytes/100 WBC (Bld) 13.7 % Normal . [facility] Comment on above: Performed By: #### C BC, BMP, LIPID ####[address] MCH (RBC) [Entitic mass] 28.3 pg Normal 27.5-35.2 [facility] Comment on above: Performed By: #### C BC, BMP, LIPID ####[address] MCV (RBC) [Entitic vol] 84.2 fL Normal 83.5-101 [facility] Comment on above: Performed By: #### C BC, BMP, LIPID ####[address] Mean Corpuscular HGB Conc 33.6 g/dL Normal 32.5-35.6 [facility] Comment on above: Performed By: #### C BC, BMP, LIPID ####[address] Monocytes (Bld) [#/Vol] 1.2 10*3/uL High 0.0-0.8 [facility] Comment on above: Performed By: #### C BC, BMP, LIPID ####[address] Monocytes/100 WBC (Bld) 13.5 % Normal . [facility] Comment on above: Performed By: #### C BC, BMP, LIPID ####[address] Neutrophils (Bld) [#/Vol] 6.2 10*3/uL Normal 1.8-7.7 [facility] Comment on above: Performed By: #### C BC, BMP, LIPID ####[address] Neutrophils/100 WBC (Bld) 71.9 % Normal . [facility] Comment on above: Performed By: #### C BC, BMP, LIPID ####[address] NRBC% 0.0 /100{WBC} Normal 0-0.5 [facility] Comment on above: Performed By: #### C BC, BMP, LIPID ####[address] Platelet mean volume (Bld) [Entitic vol] 9.3 fL Normal 6.6-10.1 [facility] Comment on above: Performed By: #### C BC, BMP, LIPID ####[address] Platelets (Bld) [#/Vol] 168 10*3/uL Normal 150-450 [facility] Comment on above: Performed By: #### C BC, BMP, LIPID ####[address] RBC (Bld) [#/Vol] 3.29 10*6/uL Low 3.90-5.60 [facility] Comment on above: Performed By: #### C BC, BMP, LIPID ####[address] WBC (Bld) [#/Vol] 8.6 10*3/uL Normal 4.1-10.5 [facility] Comment on above: Performed By: #### C BC, BMP, LIPID ####[address] Creatinine [Mass/volume] in Serum or PlasmaOrdered By: Sushant Cordon on 05-02-2023 Creatinine [Mass/Vol] 0.86 mg/dL 0.70-1.30 [facility] Eosinophils Auto (Bld) [#/Vo l]Ordered By: Sushant Cordon on 05-02-2023 Eosinophils (Bld) [#/Vol] 0.1 10*3/uL 0.0-0.45 [facility] Eosinophils/100 WBC Auto (Bl d)Ordered By: Sushant Cordon on 05-02-2023 Eosinophils/100 WBC (Bld) 0.8 % . [facility] Erythrocyte distribution wid th Auto (RBC) [Ratio]Ordered By: Sushant Cordon on 05-02-2023 Erythrocyte distribution width (RBC) [Ratio] 17.0 % 12.0-14.8 [facility] Glucose Poct Glucometerson 1 Glucose [Mass/Vol] 323 mg/dL Normal [facility] Comment on above: Result Comment: [facility] Glucose Reference Range is dependent on time and content of last meal. Glucose of more than 200 mg/dL in a nonstressed, ambulatory subject supports the diagnosis of Diabetes Mellitus.PERFORMED BY:[place] [address] [place], [place] [phone] MEDICAL DIRECTORAIRAM MAST M.D. Performed By: #### G LULS ####Point of Care testing, Commemt1 [facility] Comment on above: Result Comment: Glu2 : WILL NOTIFY /ROCÍOERFORMED BY:[place] [address] [place], [place] [phone] MEDICAL DIRECTORAIRAM MAST M.D. Performed By: #### G LULS ####Point of Care testing, Glucose [Mass/Vol] 427 mg/dL Off scale [facility] Comment on above: Result Comment: [facility] Glucose Reference Range is dependent on time and content of last meal. Glucose of more than 200 mg/dL in a nonstressed, ambulatory subject supports the diagnosis of Diabetes Mellitus. Performed By: #### G LULS ####Point of Care testing, Glucose [Mass/Vol] 376 mg/dL Normal [facility] Comment on above: Result Comment: [facility] Glucose Reference Range is dependent on time and content of last meal. Glucose of more than 200 mg/dL in a nonstressed, ambulatory subject supports the diagnosis of Diabetes Mellitus.PERFORMED BY:[place] [address] [place], [place] [phone] MEDICAL DIRECTORAIRAM MAST M.D. Performed By: #### G LULS ####Point of Care testing, Glucose [Mass/Vol] 73 mg/dL Normal [facility] Comment on above: Result Comment: [facility] Glucose Reference Range is dependent on time and content of last meal. Glucose of more than 200 mg/dL in a nonstressed, ambulatory subject supports the diagnosis of Diabetes Mellitus.PERFORMED BY:[place] [address]ANO[address]ysOdalisKESHATOA [place], [place] [phone] MEDICAL DIRECTORAIRAM MAST M.D. Performed By: #### G LULS ####Point of Care testing, Glucose [Mass/Vol] 92 mg/dL Normal [facility] Comment on above: Result Comment: [facility] Glucose Reference Range is dependent on time and content of last meal. Glucose of more than 200 mg/dL in a nonstressed, ambulatory subject supports the diagnosis of Diabetes Mellitus.PERFORMED BY:[place] [address] [address]OdalisKESH[address] [place], [place] [phone] MEDICAL DIRECTORAIRAM MAST M.D. Performed By: #### G LULS ####Point of Care testing, Glucose [Mass/volume] in Ser um or PlasmaOrdered By: Sushant Cordon on 05-02-2023 Glucose [Mass/Vol] 87 mg/dL 70-100 [facility] Comment on above: ADA recommended refe rence rangeRandom Glucose Reference Range is dependent on time and content of last meal. Glucose of more than 200 mg/dL in a nonstressed, ambulatory subject supports the diagnosis of Diabetes Mellitus. Hematocrit Auto (Bld) [Volum e fraction]Ordered By: Sushant Cordon on 05-02-2023 Hematocrit (Bld) [Volume fraction] 27.8 % 38.8-50.0 [facility] Hemoglobin [Mass/volume] in BloodOrdered By: Sushant Cordon on 05-02-2023 Hemoglobin (Bld) [Mass/Vol] 9.3 g/dL 13.0-17.0 [facility] Leukocytes [#/volume] correc robert for nucleated erythrocytes in Blood by Automated counOrdered By: Sushant Cordon on 05-02-2023 WBC corrected for nucl RBC Auto (Bld) [#/Vol] 8.6 10*3/uL 4.1-10.5 [facility] Lipid Panelon 05-02-2023 Cholesterol [Mass/Vol] 97 mg/dL Low 140-200 [facility] Comment on above: Result Comment: Chol less than 200 mg/dl low risk Chol 201-239 mg/dl borderline risk Chol 240 mg/dl and greater high risk Performed By: #### C BC, BMP, LIPID ####[facility] [id number] [place] [address] [facility] Cholesterol in HDL [Mass/Vol] 43 mg/dL Normal 23-92 [facility] Comment on above: Result Comment: HDL CHOL ATP-III CLASSIFICATION Cardiovascular Risk HDL > or equal to 60 mg/dL LOW HDL < 40 mg/dL HIGH Performed By: #### C BC, BMP, LIPID ####[id number] [place] [address] [facility] Cholesterol.total/Cho lesterol in HDL [Mass ratio] 2.3 {ratio} Normal <5.0 [facility] Comment on above: Result Comment: PERF ORMED BY:[address] [place], [place] [phone] MEDICAL DIRECTORAIRAM MAST M.D. Performed By: #### C BC, BMP, LIPID ####[facility] [id number] [place] [address] [facility] LDL Cholesterol,Calculate d 43 mg/dL Normal 0-100 [facility] Comment on above: Result Comment: LDL ATP III CLASSIFICATION LDL less than 100 mg/dL Optimal LDL 100-129 mg/dL Near or above optimal LDL 130-159 mg/dL Borderline high LDL 160-189 mg/dL High LDL greater than 189 mg/dL Very high Performed By: #### C BC, BMP, LIPID ####[facility] [id number] Triglyceride w/Reflex 53 mg/dL Normal 0-149 [facility] Comment on above: Result Comment: TRIG ATP III CLASSIFICATION TRIG less than 150 mg/dL Normal TRIG 150-199 mg/dL Borderline high TRIG 200-500 mg/dL High TRIG greater than 500 mg/dL Very high Standard traceable to the Center for Disease Conrtrol and Prevention (CDC) test method. Performed By: #### C BC, BMP, LIPID ####[facility] [id number] VLDL CHOLESTEROL 10 mg/dL Normal [facility] Comment on above: Performed By: #### C BC, BMP, LIPID ####[facility] [id number] [address] Lymphocytes Auto (Bld) [#/Vo l]Ordered By: Sushant Cordon on 05-02-2023 Lymphocytes (Bld) [#/Vol] 1.2 10*3/uL 1.00-4.8 [facility] Lymphocytes/100 WBC Auto (Bl d)Ordered By: Sushant Cordon on 05-02-2023 Lymphocytes/100 WBC (Bld) 13.7 % . [facility] MCH Auto (RBC) [Entitic mass ]Ordered By: Sushant Cordon on 05-02-2023 MCH (RBC) [Entitic mass] 28.3 pg 27.5-35.2 [facility] MCHC Auto (RBC) [Mass/Vol]Or dered By: Sushant Cordon on 05-02-2023 MCHC (RBC) [Mass/Vol] 33.6 g/dL 32.5-35.6 [facility] MCV Auto (RBC) [Entitic vol] Ordered By: Sushant Cordon on 05-02-2023 MCV (RBC) [Entitic vol] 84.2 fL 83.5-101 [facility] Monocytes Auto (Bld) [#/Vol] Ordered By: Sushant Cordon on 05-02-2023 Monocytes (Bld) [#/Vol] 1.2 10*3/uL 0.0-0.8 [facility] Monocytes/100 WBC Auto (Bld) Ordered By: Sushant Cordon on 05-02-2023 Monocytes/100 WBC (Bld) 13.5 % . [facility] Neutrophils Auto (Bld) [#/Vo l]Ordered By: Sushant Cordon on 05-02-2023 Neutrophils (Bld) [#/Vol] 6.2 10*3/uL 1.8-7.7 [facility] Neutrophils/100 WBC Auto (Bl d)Ordered By: Sushant Cordon on 05-02-2023 Neutrophils/100 WBC (Bld) 71.9 % . [facility] No Panel InformationOrdered By: Sushant Cordon on 05-02-2023 Bedside Glucose Comment See comment [facility] Comment on above: Glu2: WILL NOTIFY DR /RN Estimated GFR (CKD-EPI) > 60.0 mL/Min [facility] Creatinine Clearance (Chem 59.22 [facility] Nucleated erythrocytes [Pres ence] in Blood by Automated countOrdered By: Sushant Cordon on 05-02-2023 Nucleated RBC Auto Ql (Bld) 0.0 /100{WBC} 0-0.5 [facility] Platelet mean volume Auto (B ld) [Entitic vol]Ordered By: Sushant Cordon on 05-02-2023 Platelet mean volume (Bld) [Entitic vol] 9.3 fL 6.6-10.1 [facility] Platelets Auto (Bld) [#/Vol] Ordered By: Sushant Cordon on 05-02-2023 Platelets (Bld) [#/Vol] 168 10*3/uL 150-450 [facility] Potassium [Moles/volume] in Serum or PlasmaOrdered By: Sushant Cordon on 05-02-2023 Potassium [Moles/Vol] 4.2 mmol/L 3.5-5.1 [facility] RBC Auto (Bld) [#/Vol]Ordere d By: Sushant Cordon on 05-02-2023 RBC (Bld) [#/Vol] 3.29 10*6/uL 3.90-5.60 [facility] Serum or plasma anion gap de terminationOrdered By: Sushant Cordon on 05-02-2023 Anion gap [Moles/Vol] 8.1 mmol/L 6.0-15.0 [facility] Sodium [Moles/volume] in Ser um or PlasmaOrdered By: Sushant Cordon on 05-02-2023 Sodium [Moles/Vol] 131 mmol/L 136-145 [facility] Urea nitrogen [Mass/volume] in Serum or PlasmaOrdered By: Sushant Cordon on 05-02-2023 Urea nitrogen [Mass/Vol] 21 mg/dL 7-25 [facility] WBC Auto (Bld) [#/Vol]Ordere d By: Sushant Cordon on 05-02-2023 WBC (Bld) [#/Vol] 8.6 10*3/uL 4.1-10.5 [facility] Basic Metabolic Panelon 04-12 Anion gap [Moles/Vol] 8.6 mmol/L Normal 6.0-15.0 [facility] Comment on above: Performed By: #### B MP, LIPID, CBC ####[facility] [id number] [place] [address] [facility] Calcium [Mass/Vol] 8.0 mg/dL Low 8.6-10.3 [facility] Comment on above: Performed By: #### B MP, LIPID, CBC ####[facility] [id number] [place] [address] [place] Chloride [Moles/Vol] 97 mmol/L Low 98-107 [facility] Comment on above: Performed By: #### B MP, LIPID, CBC ####[facility] [id number] [place] [address] [place] CO2 [Moles/Vol] 32.9 mmol/L High 21.0-31.0 [facility] Comment on above: Performed By: #### B MP, LIPID, CBC ####[address] [place] [address] [facility] Creatinine [Mass/Vol] 0.77 mg/dL Normal 0.70-1.30 [facility] Comment on above: Performed By: #### B MP, LIPID, CBC ####[address] [place] [address] [place] Creatinine Clr Calc Pharmacy 63.00 [facility] Comment on above: Performed By: #### B MP, LIPID, CBC ####[address] [place] [address] [place] GFR/1.73 sq M.predicted MDRD (S/P/Bld) [Vol rate/Area] mL/min/{1.73_m2} [facility] Comment on above: Performed By: #### B MP, LIPID, CBC ####[place] [id number] [facility] Glucose [Mass/Vol] 86 mg/dL Normal 70-100 [facility] Comment on above: Result Comment: [facility] Glucose Reference Range is dependent on time and content of last meal. Glucose of more than 200 mg/dL in a nonstressed, ambulatory subject supports the diagnosis of Diabetes Mellitus. ADA recommended reference range Performed By: #### B MP, LIPID, CBC ####[place] [id number] [facility] Potassium [Moles/Vol] 4.5 mmol/L Normal 3.5-5.1 [facility] Comment on above: Performed By: #### B MP, LIPID, CBC ####[address] [place] [address] [facility] Sodium [Moles/Vol] 134 mmol/L Low 136-145 [facility] Comment on above: Performed By: #### B MP, LIPID, CBC ####[facility] [id number] [place] [address] [facility] Urea nitrogen [Mass/Vol] 17 mg/dL Normal 7-25 [facility] Comment on above: Performed By: #### B MP, LIPID, CBC ####[place] [id number] [facility] Complete Blood Count Auto Di ffon 05-01-2023 Basophils (Bld) [#/Vol] 0.0 10*3/uL Normal 0.0-0.2 [facility] Comment on above: Result Comment: PERF ORMED BY:[address] [place], [place] [phone] MEDICAL DIRECTORAIRAM MAST M.D. Performed By: #### B MP, LIPID, CBC ####[place] [id number] [facility] Basophils/100 WBC (Bld) 0.3 % Normal . [facility] Comment on above: Performed By: #### B MP, LIPID, CBC ####[address] Eosinophils (Bld) [#/Vol] 0.0 10*3/uL Normal 0.0-0.45 [facility] Comment on above: Performed By: #### B MP, LIPID, CBC ####[address] Eosinophils/100 WBC (Bld) 0.6 % Normal . [facility] Comment on above: Performed By: #### B MP, LIPID, CBC ####[address] Erythrocyte distribution width (RBC) [Ratio] 17.7 % High 12.0-14.8 [facility] Comment on above: Performed By: #### B MP, LIPID, CBC ####[place] [id number] [facility] Hematocrit (Bld) [Volume fraction] 29.9 % Low 38.8-50.0 [facility] Comment on above: Performed By: #### B MP, LIPID, CBC ####[place] [id number] [facility] Hemoglobin (Bld) [Mass/Vol] 9.8 g/dL Low 13.0-17.0 [facility] Comment on above: Performed By: #### B MP, LIPID, CBC ####[address] Lymphocytes (Bld) [#/Vol] 1.5 10*3/uL Normal 1.00-4.8 [facility] Comment on above: Performed By: #### B MP, LIPID, CBC ####[address] Lymphocytes/100 WBC (Bld) 16.8 % Normal . [facility] Comment on above: Performed By: #### B MP, LIPID, CBC ####[address] MCH (RBC) [Entitic mass] 27.8 pg Normal 27.5-35.2 [facility] Comment on above: Performed By: #### B MP, LIPID, CBC ####[address] MCV (RBC) [Entitic vol] 84.5 fL Normal 83.5-101 [facility] Comment on above: Performed By: #### B MP, LIPID, CBC ####[address] Mean Corpuscular HGB Conc 32.9 g/dL Normal 32.5-35.6 [facility] Comment on above: Performed By: #### B MP, LIPID, CBC ####[address] Monocytes (Bld) [#/Vol] 1.2 10*3/uL High 0.0-0.8 [facility] Comment on above: Performed By: #### B MP, LIPID, CBC ####[address] Monocytes/100 WBC (Bld) 14.1 % Normal . [facility] Comment on above: Performed By: #### B MP, LIPID, CBC ####[address] Neutrophils (Bld) [#/Vol] 6.0 10*3/uL Normal 1.8-7.7 [facility] Comment on above: Performed By: #### B MP, LIPID, CBC ####[address] Neutrophils/100 WBC (Bld) 68.2 % Normal . [facility] Comment on above: Performed By: #### B MP, LIPID, CBC ####[address] NRBC% 0.1 /100{WBC} Normal 0-0.5 [facility] Comment on above: Performed By: #### B MP, LIPID, CBC ####[address] Platelet mean volume (Bld) [Entitic vol] 9.5 fL Normal 6.6-10.1 [facility] Comment on above: Performed By: #### B MP, LIPID, CBC ####[address] Platelets (Bld) [#/Vol] 156 10*3/uL Normal 150-450 [facility] Comment on above: Performed By: #### B MP, LIPID, CBC ####[address] RBC (Bld) [#/Vol] 3.54 10*6/uL Low 3.90-5.60 [facility] Comment on above: Performed By: #### B MP, LIPID, CBC ####[address] WBC (Bld) [#/Vol] 8.8 10*3/uL Normal 4.1-10.5 [facility] Comment on above: Performed By: #### B MP, LIPID, CBC ####[address] Glucose Poct Glucometerson 1 Commemt1 Glu2: Cleaned Meter Normal [facility] Comment on above: Result Comment: PERF ORMED BY:[address] [place], [place] [phone] MEDICAL DIRECTORAIRAM MAST M.D. Performed By: #### G LULS ####Point of Care testing, Glucose [Mass/Vol] 340 mg/dL Normal [facility] Comment on above: Result Comment: [place] [facility] Glucose Reference Range is dependent on time and content of last meal. Glucose of more than 200 mg/dL in a nonstressed, ambulatory subject supports the diagnosis of Diabetes Mellitus. Performed By: #### G LULS ####Point of Care testing, Glucose [Mass/Vol] 194 mg/dL Normal [facility] Comment on above: Result Comment: [place] [facility] Glucose Reference Range is dependent on time and content of last meal. Glucose of more than 200 mg/dL in a nonstressed, ambulatory subject supports the diagnosis of Diabetes Mellitus.PERFORMED BY:[address] [address] [place], [place] [phone] MEDICAL DIRECTORAIRAM MAST M.D. Performed By: #### G LULS ####Point of Care testing, Commemt1 Glu2: Cleaned Meter [facility] Comment on above: Result Comment: PERF ORMED BY:[address] [address] [place]ORDON[place]alisKESHAT[place], [place] [phone] MEDICAL HUMBLE MAST M.D. Performed By: #### G LULS ####Point of Care testing, Glucose [Mass/Vol] 131 mg/dL Normal [facility] Comment on above: Result Comment: [place] [facility] Glucose Reference Range is dependent on time and content of last meal. Glucose of more than 200 mg/dL in a nonstressed, ambulatory subject supports the diagnosis of Diabetes Mellitus. Performed By: #### G LULS ####Point of Care testing, Commemt1 Glu2: Cleaned Meter [facility] Comment on above: Result Comment: PERF ORMED BY:[address] GORDONOdalisKESHATOA [place], [place] [phone] MEDICAL HUMBLE MAST M.D. Performed By: #### G LULS ####Point of Care testing, Glucose [Mass/Vol] 85 mg/dL Normal [facility] Comment on above: Result Comment: [place] [facility] Glucose Reference Range is dependent on time and content of last meal. Glucose of more than 200 mg/dL in a nonstressed, ambulatory subject supports the diagnosis of Diabetes Mellitus. Performed By: #### G LULS ####Point of Care testing, Glucose [Mass/Vol] 295 mg/dL Normal [facility] Comment on above: Result Comment: [place] [facility] Glucose Reference Range is dependent on time and content of last meal. Glucose of more than 200 mg/dL in a nonstressed, ambulatory subject supports the diagnosis of Diabetes Mellitus.PERFORMED BY:[address] [address] [place], [place] [phone] MEDICAL DIRECTORAIRAM MAST M.D. Performed By: #### G LUMARYA ####Point of Care testing, Lipid Panelon 05-01-2023 Cholesterol [Mass/Vol] 107 mg/dL Low 140-200 [facility] Comment on above: Result Comment: Chol less than 200 mg/dl low risk Chol 201-239 mg/dl borderline risk Chol 240 mg/dl and greater high risk Performed By: #### B MP, LIPID, CBC ####[facility] [address] [place] [address] [facility] Cholesterol in HDL [Mass/Vol] 51 mg/dL Normal 23-92 [facility] Comment on above: Result Comment: HDL CHOL ATP-III CLASSIFICATION Cardiovascular Risk HDL > or equal to 60 mg/dL LOW HDL < 40 mg/dL HIGH Performed By: #### B MP, LIPID, CBC ####[address] [address] [facility] Cholesterol.total/Cho lesterol in HDL [Mass ratio] 2.1 {ratio} Normal <5.0 [facility] Comment on above: Result Comment: PERF ORMED BY:[address] [place], [place] [phone] MEDICAL DIRECTORAIRAM MAST M.D. Performed By: #### B MP, LIPID, CBC ####[facility] [id number] [place] [address] [facility] LDL Cholesterol,Calculate d 50 mg/dL Normal 0-100 [facility] Comment on above: Result Comment: LDL ATP III CLASSIFICATION LDL less than 100 mg/dL Optimal LDL 100-129 mg/dL Near or above optimal LDL 130-159 mg/dL Borderline high LDL 160-189 mg/dL High LDL greater than 189 mg/dL Very high Performed By: #### B MP, LIPID, CBC ####[facility] [id number] [place] [id number] [facility] Triglyceride w/Reflex 30 mg/dL Normal 0-149 [facility] Comment on above: Result Comment: TRIG ATP III CLASSIFICATION TRIG less than 150 mg/dL Normal TRIG 150-199 mg/dL Borderline high TRIG 200-500 mg/dL High TRIG greater than 500 mg/dL Very high Standard traceable to the Center for Disease Conrtrol and Prevention (CDC) test method. Performed By: #### B MP, LIPID, CBC ####[facility] [id number] [place] [id number] [facility] VLDL CHOLESTEROL 6 mg/dL Normal [facility] Comment on above: Performed By: #### B MP, LIPID, CBC ####[facility] [id number] [place] [id number] [facility] Activated partial thrombopla stin time (aPTT) in platelet poor plasma by coagulation aOrdered By: Anat Perez on 04-30-2023 aPTT Coag (PPP) [Time] 30.6 s 25.1-36.5 [facility] Comment on above: A hematocrit value g reater than 55% may lead to inaccurate results in coagulation testing. Patients having hematocrit values >55% require a special collection tube for coagulation studies. Please contact the laboratory at [phone] for redraw instructions. B-Type Natriuretic Peptideon 04-30-2023 Natriuretic peptide B (Bld) [Mass/Vol] 523.0 pg/mL High 5-100 [facility] Comment on above: Result Comment: PERF ORMED BY:[address] [place], [place] [phone] MEDICAL DIRECTORAIRAM MAST M.D. Performed By: #### B CINDER MAN ####[place] [id number] [facility] Natriuretic peptide B (Bld) [Mass/Vol] 630.0 pg/mL High 5-100 [facility] Comment on above: Result Comment: PERF ORMED BY:[address] [place], [place] [phone] MEDICAL DIRECTORAIRAM MAST M.D. Performed By: #### H S TROP, BMP, BNP, PTT, PT, CBC ####[place] [id number] [facility] Basic Metabolic Panelon 04-12 Anion gap [Moles/Vol] 7.9 mmol/L Normal 6.0-15.0 [facility] Comment on above: Performed By: #### H S TROP, BMP, BNP, PTT, PT, CBC ####[address] Calcium [Mass/Vol] 8.4 mg/dL Low 8.6-10.3 [facility] Comment on above: Performed By: #### H S TROP, BMP, BNP, PTT, PT, CBC ####[place] [id number] [facility] Chloride [Moles/Vol] 96 mmol/L Low 98-107 [facility] Comment on above: Performed By: #### H S TROP, BMP, BNP, PTT, PT, CBC ####[place] [id number] [facility] CO2 [Moles/Vol] 33.2 mmol/L High 21.0-31.0 [facility] Comment on above: Performed By: #### H S TROP, BMP, BNP, PTT, PT, CBC ####[place] [id number] [facility] Creatinine [Mass/Vol] 0.68 mg/dL Low 0.70-1.30 [facility] Comment on above: Performed By: #### H S TROP, BMP, BNP, PTT, PT, CBC ####[address] [place] [address] [place] Creatinine Clr Calc Pharmacy 57.66 [facility] Comment on above: Result Comment: PERF ORMED BY:[address] [place], [place] [phone] MEDICAL HUMBLE MAST M.D. Performed By: #### H S TROP, BMP, BNP, PTT, PT, CBC ####[address] [address] [facility] GFR/1.73 sq M.predicted MDRD (S/P/Bld) [Vol rate/Area] mL/min/{1.73_m2} [facility] Comment on above: Performed By: #### H S TROP, BMP, BNP, PTT, PT, CBC ####[place] [id number] [facility] Glucose [Mass/Vol] 163 mg/dL High 70-100 [facility] Comment on above: Result Comment: [facility] Glucose Reference Range is dependent on time and content of last meal. Glucose of more than 200 mg/dL in a nonstressed, ambulatory subject supports the diagnosis of Diabetes Mellitus. ADA recommended reference range Performed By: #### H S TROP, BMP, BNP, PTT, PT, CBC ####[address] [address] [facility] Potassium [Moles/Vol] 4.1 mmol/L Normal 3.5-5.1 [facility] Comment on above: Performed By: #### H S TROP, BMP, BNP, PTT, PT, CBC ####[address] [address] [facility] Sodium [Moles/Vol] 133 mmol/L Low 136-145 [facility] Comment on above: Performed By: #### H S TROP, BMP, BNP, PTT, PT, CBC ####[address] [address] [facility] Urea nitrogen [Mass/Vol] 12 mg/dL Normal 7-25 [facility] Comment on above: Performed By: #### H S TROP, BMP, BNP, PTT, PT, CBC ####[address] [place] [address] [facility] Anion gap [Moles/Vol] 5.4 mmol/L Low 6.0-15.0 [facility] Comment on above: Performed By: #### B MP, CBC ####[address] [place] [address] [facility] Calcium [Mass/Vol] 8.5 mg/dL Low 8.6-10.3 [facility] Comment on above: Performed By: #### B MP, CBC ####[address] [place] [address] [facility] Chloride [Moles/Vol] 98 mmol/L Normal 98-107 [facility] Comment on above: Performed By: #### B MP, CBC ####[address] [address] [facility] CO2 [Moles/Vol] 35.0 mmol/L High 21.0-31.0 [facility] Comment on above: Performed By: #### B MP, CBC ####[address] [address] [place] Creatinine [Mass/Vol] 0.71 mg/dL Normal 0.70-1.30 [facility] Comment on above: Performed By: #### B MP, CBC ####[address] [address] [place] Creatinine Clr Calc Pharmacy 57.66 [facility] Comment on above: Result Comment: PERF ORMED BY:[address] [place], [place] [phone] MEDICAL HUMBLE MAST M.D. Performed By: #### B MP, CBC ####[address] [address] [place] GFR/1.73 sq M.predicted MDRD (S/P/Bld) [Vol rate/Area] mL/min/{1.73_m2} [facility] Comment on above: Performed By: #### B MP, CBC ####[address] [place] [address] [facility] Glucose [Mass/Vol] 72 mg/dL Normal 70-100 [facility] Comment on above: Result Comment: [facility] Glucose Reference Range is dependent on time and content of last meal. Glucose of more than 200 mg/dL in a nonstressed, ambulatory subject supports the diagnosis of Diabetes Mellitus. ADA recommended reference range Performed By: #### B MP, CBC ####[address] [address] [facility] Potassium [Moles/Vol] 4.4 mmol/L Normal 3.5-5.1 [facility] Comment on above: Performed By: #### B MP, CBC ####[address] [address] [facility] Sodium [Moles/Vol] 134 mmol/L Low 136-145 [facility] Comment on above: Performed By: #### B MP, CBC ####[address] [address] [facility] Urea nitrogen [Mass/Vol] 12 mg/dL Normal 7-25 [facility] Comment on above: Performed By: #### B MP, CBC ####[address] [address] [facility] Coagulation Profileon 2022 aPTT Coag (Bld) [Time] 29.5 s Normal 25.1-36.5 [facility] Comment on above: Result Comment: A he matocrit value greater than 55% may lead to inaccurate results in coagulation testing. Patients having hematocrit values >55% require a special collection tube for coagulation studies. Please contact the laboratory at [phone] for redraw instructions.PERFORMED BY:[address] [place], [place] [phone] MEDICAL DIRECTORAIRAM MAST M.D. Performed By: #### P P ####[address] [address] [facility] INR Coag (PPP) [Relative time] 1.2 {INR} Normal [facility] Comment on above: Result Comment: INR Therapeutic [...] - 4.5 Performed By: #### P P ####[place] [id number] [facility] PT Coag (PPP) [Time] 14.8 s High 9.0-12.9 [facility] Comment on above: Result Comment: A he matocrit value greater than 55% may lead to inaccurate results in coagulation testing. Patients having hematocrit values >55% require a special collection tube for coagulation studies. Please contact the laboratory at [phone] for redraw instructions. Performed By: #### P P ####[place] [id number] [facility] Complete Blood Count Auto Di ffon 04-30-2023 Basophils (Bld) [#/Vol] 0.0 10*3/uL Normal 0.0-0.2 [facility] Comment on above: Result Comment: PERF ORMED BY:[address] [place], [place] [phone] MEDICAL DIRECTORAIRAM MAST M.D. Performed By: #### H S TROP, BMP, BNP, PTT, PT, CBC ####[place] [id number] [facility] Basophils/100 WBC (Bld) 0.3 % Normal . [facility] Comment on above: Performed By: #### H S TROP, BMP, BNP, PTT, PT, CBC ####[address] Eosinophils (Bld) [#/Vol] 0.0 10*3/uL Normal 0.0-0.45 [facility] Comment on above: Performed By: #### H S TROP, BMP, BNP, PTT, PT, CBC ####[address] Eosinophils/100 WBC (Bld) 0.0 % Normal . [facility] Comment on above: Performed By: #### H S TROP, BMP, BNP, PTT, PT, CBC ####[address] Erythrocyte distribution width (RBC) [Ratio] 17.8 % High 12.0-14.8 [facility] Comment on above: Performed By: #### H S TROP, BMP, BNP, PTT, PT, CBC ####[address] Hematocrit (Bld) [Volume fraction] 35.8 % Low 38.8-50.0 [facility] Comment on above: Performed By: #### H S TROP, BMP, BNP, PTT, PT, CBC ####[address] Hemoglobin (Bld) [Mass/Vol] 11.8 g/dL Low 13.0-17.0 [facility] Comment on above: Performed By: #### H S TROP, BMP, BNP, PTT, PT, CBC ####[address] Lymphocytes (Bld) [#/Vol] 0.6 10*3/uL Low 1.00-4.8 [facility] Comment on above: Performed By: #### H S TROP, BMP, BNP, PTT, PT, CBC ####[address] Lymphocytes/100 WBC (Bld) 5.9 % Normal . [facility] Comment on above: Performed By: #### H S TROP, BMP, BNP, PTT, PT, CBC ####[address] MCH (RBC) [Entitic mass] 27.9 pg Normal 27.5-35.2 [facility] Comment on above: Performed By: #### H S TROP, BMP, BNP, PTT, PT, CBC ####[address] MCV (RBC) [Entitic vol] 84.7 fL Normal 83.5-101 [facility] Comment on above: Performed By: #### H S TROP, BMP, BNP, PTT, PT, CBC ####[address] Mean Corpuscular HGB Conc 32.9 g/dL Normal 32.5-35.6 [facility] Comment on above: Performed By: #### H S TROP, BMP, BNP, PTT, PT, CBC ####[address] Monocytes (Bld) [#/Vol] 1.4 10*3/uL High 0.0-0.8 [facility] Comment on above: Performed By: #### H S TROP, BMP, BNP, PTT, PT, CBC ####[address] Monocytes/100 WBC (Bld) 14.6 % Normal . [facility] Comment on above: Performed By: #### H S TROP, BMP, BNP, PTT, PT, CBC ####[address] Neutrophils (Bld) [#/Vol] 7.4 10*3/uL Normal 1.8-7.7 [facility] Comment on above: Performed By: #### H S TROP, BMP, BNP, PTT, PT, CBC ####[address] Neutrophils/100 WBC (Bld) 79.2 % Normal . [facility] Comment on above: Performed By: #### H S TROP, BMP, BNP, PTT, PT, CBC ####[address] NRBC% 0.1 /100{WBC} Normal 0-0.5 [facility] Comment on above: Performed By: #### H S TROP, BMP, BNP, PTT, PT, CBC ####[address] Platelet mean volume (Bld) [Entitic vol] 9.9 fL Normal 6.6-10.1 [facility] Comment on above: Performed By: #### H S TROP, BMP, BNP, PTT, PT, CBC ####[address] Platelets (Bld) [#/Vol] 194 10*3/uL Normal 150-450 [facility] Comment on above: Performed By: #### H S TROP, BMP, BNP, PTT, PT, CBC ####[address] RBC (Bld) [#/Vol] 4.23 10*6/uL Normal 3.90-5.60 [facility] Comment on above: Performed By: #### H S TROP, BMP, BNP, PTT, PT, CBC ####[address] WBC (Bld) [#/Vol] 9.3 10*3/uL Normal 4.1-10.5 [facility] Comment on above: Performed By: #### H S TROP, BMP, BNP, PTT, PT, CBC ####[address] Basophils (Bld) [#/Vol] 0.0 10*3/uL Normal 0.0-0.2 [facility] Comment on above: Result Comment: PERF ORMED BY:[address] [place], [place] [phone] MEDICAL HUMBLE MAST M.D. Performed By: #### B MP, CBC ####[address] Basophils/100 WBC (Bld) 0.4 % Normal . [facility] Comment on above: Performed By: #### B MP, CBC ####[address] Eosinophils (Bld) [#/Vol] 0.1 10*3/uL Normal 0.0-0.45 [facility] Comment on above: Performed By: #### B MP, CBC ####[address] Eosinophils/100 WBC (Bld) 0.6 % Normal . [facility] Comment on above: Performed By: #### B MP, CBC ####[address] Erythrocyte distribution width (RBC) [Ratio] 18.0 % High 12.0-14.8 [facility] Comment on above: Performed By: #### B MP, CBC ####[address] Hematocrit (Bld) [Volume fraction] 33.7 % Low 38.8-50.0 [facility] Comment on above: Performed By: #### B MP, CBC ####[address] Hemoglobin (Bld) [Mass/Vol] 11.2 g/dL Low 13.0-17.0 [facility] Comment on above: Performed By: #### B MP, CBC ####[address] Lymphocytes (Bld) [#/Vol] 2.0 10*3/uL Normal 1.00-4.8 [facility] Comment on above: Performed By: #### B MP, CBC ####[address] Lymphocytes/100 WBC (Bld) 22.0 % Normal . [facility] Comment on above: Performed By: #### B MP, CBC ####[address] MCH (RBC) [Entitic mass] 28.1 pg Normal 27.5-35.2 [facility] Comment on above: Performed By: #### B MP, CBC ####[address] MCV (RBC) [Entitic vol] 84.7 fL Normal 83.5-101 [facility] Comment on above: Performed By: #### B MP, CBC ####[address] Mean Corpuscular HGB Conc 33.2 g/dL Normal 32.5-35.6 [facility] Comment on above: Performed By: #### B MP, CBC ####[address] Monocytes (Bld) [#/Vol] 1.5 10*3/uL High 0.0-0.8 [facility] Comment on above: Performed By: #### B MP, CBC ####[address] Monocytes/100 WBC (Bld) 16.4 % Normal . [facility] Comment on above: Performed By: #### B MP, CBC ####[address] Neutrophils (Bld) [#/Vol] 5.4 10*3/uL Normal 1.8-7.7 [facility] Comment on above: Performed By: #### B MP, CBC ####[address] Neutrophils/100 WBC (Bld) 60.6 % Normal . [facility] Comment on above: Performed By: #### B MP, CBC ####[address] NRBC% 0.1 /100{WBC} Normal 0-0.5 [facility] Comment on above: Performed By: #### B MP, CBC ####[address] Platelet mean volume (Bld) [Entitic vol] 9.1 fL Normal 6.6-10.1 [facility] Comment on above: Performed By: #### B MP, CBC ####[address] Platelets (Bld) [#/Vol] 173 10*3/uL Normal 150-450 [facility] Comment on above: Performed By: #### B MP, CBC ####[place] [id number] [place] [id number] [facility] RBC (Bld) [#/Vol] 3.98 10*6/uL Normal 3.90-5.60 [facility] Comment on above: Performed By: #### B MP, CBC ####[id number] [place] [id number] [facility] WBC (Bld) [#/Vol] 9.0 10*3/uL Normal 4.1-10.5 [facility] Comment on above: Performed By: #### B MP, CBC ####[address] ECG 12 lead ECGon 04-30-2023 ECG 12 lead ECG Normal [facility] Glucose Poct Glucometerson 1 Commemt1 Glu2: Cleaned Meter Normal [facility] Comment on above: Result Comment: PERF ORMED BY:[address] [address] [address] [place], [place] [phone] MEDICAL DIRECTORAIRAM MAST M.D. Performed By: #### G RIOS ####Point of Care testing, Glucose [Mass/Vol] 375 mg/dL Normal [facility] Comment on above: Result Comment: [facility] Glucose Reference Range is dependent on time and content of last meal. Glucose of more than 200 mg/dL in a nonstressed, ambulatory subject supports the diagnosis of Diabetes Mellitus. Performed By: #### G LULS ####Point of Care testing, Glucose [Mass/Vol] 162 mg/dL Normal [facility] Comment on above: Result Comment: [place] Glucose Reference Range is dependent on time and content of last meal. Glucose of more than 200 mg/dL in a nonstressed, ambulatory subject supports the diagnosis of Diabetes Mellitus.PERFORMED BY:[address] [address] [address] [place], [place] [phone] MEDICAL DIRECTORAIRAM MAST M.D. Performed By: #### G LULS ####Point of Care testing, Glucose [Mass/Vol] 149 mg/dL Normal [facility] Comment on above: Result Comment: [place] om Glucose Reference Range is dependent on time and content of last meal. Glucose of more than 200 mg/dL in a nonstressed, ambulatory subject supports the diagnosis of Diabetes Mellitus.PERFORMED BY:[address] [address] [address] [place], [place] [phone] MEDICAL HUMBLE MAST M.D. Performed By: #### G LULS ####Point of Care testing, Commemt1 Glu2: Cleaned Meter Normal [facility] Comment on above: Result Comment: PERF ORMED BY:[address] [address] [address] [place], [place] [phone] MEDICAL HUMBLE MAST M.D. Performed By: #### G LULS ####Point of Care testing, Glucose [Mass/Vol] 130 mg/dL Normal [facility] Comment on above: Result Comment: [place] [facility] Glucose Reference Range is dependent on time and content of last meal. Glucose of more than 200 mg/dL in a nonstressed, ambulatory subject supports the diagnosis of Diabetes Mellitus. Performed By: #### G LULS ####Point of Care testing, Glucose [Mass/Vol] 118 mg/dL Normal [facility] Comment on above: Result Comment: [place] [facility] Glucose Reference Range is dependent on time and content of last meal. Glucose of more than 200 mg/dL in a nonstressed, ambulatory subject supports the diagnosis of Diabetes Mellitus.PERFORMED BY:[address] [address] [address] MAR[address] [place] CARMEN[place]TOA [place], [place] [phone] MEDICAL HUMBLE MAST M.D. Performed By: #### G LULS ####Point of Care testing, Glucose [Mass/Vol] 83 mg/dL Normal [facility] Comment on above: Result Comment: [place] om Glucose Reference Range is dependent on time and content of last meal. Glucose of more than 200 mg/dL in a nonstressed, ambulatory subject supports the diagnosis of Diabetes Mellitus.PERFORMED BY:[address] [address] [address] SNE[place]KESHATOA [place], [place] [phone] MEDICAL HUMBLE MAST M.D. Performed By: #### G LULS ####Point of Care testing, Commemt1 Normal [facility] Comment on above: Result Comment: Glu2 : WILL NOTIFY DR/ROCÍOERFORMED BY:[address] [address] [address] SNEEDKESHATOA [place], [place] [phone] MEDICAL HUMBLE MAST M.D. Performed By: #### G LULS ####Point of Care testing, Glucose [Mass/Vol] 53 mg/dL Off scale low [facility] Comment on above: Result Comment: [place] [facility] Glucose Reference Range is dependent on time and content of last meal. Glucose of more than 200 mg/dL in a nonstressed, ambulatory subject supports the diagnosis of Diabetes Mellitus. Performed By: #### G LULS ####Point of Care testing, Glucose [Mass/Vol] 75 mg/dL Normal [facility] Comment on above: Result Comment: [place] om Glucose Reference Range is dependent on time and content of last meal. Glucose of more than 200 mg/dL in a nonstressed, ambulatory subject supports the diagnosis of Diabetes Mellitus.PERFORMED BY:[address] [address] [address] CARDONAWuKESHATOA [place], [place] [phone] MEDICAL HUMBLE MAST M.D. Performed By: #### G LULS ####Point of Care testing, Glucose [Mass/Vol] 63 mg/dL Normal [facility] Comment on above: Result Comment: [place] [facility] Glucose Reference Range is dependent on time and content of last meal. Glucose of more than 200 mg/dL in a nonstressed, ambulatory subject supports the diagnosis of Diabetes Mellitus.PERFORMED BY:[address] [address] [address] GORDONOdalisKESHATOA [place], [place] [phone] KRYSTAL MAST M.D. Performed By: #### G LULS ####Point of Care testing, Glucose [Mass/Vol] 133 mg/dL Normal [facility] Comment on above: Result Comment: [facility] Glucose Reference Range is dependent on time and content of last meal. Glucose of more than 200 mg/dL in a nonstressed, ambulatory subject supports the diagnosis of Diabetes Mellitus.PERFORMED BY:[address] [address] [address] [place] [phone] MEDICAL DIRECTORAIRAM MAST M.D. Performed By: #### G LULS ####Point of Care testing, Glucose [Mass/Vol] 68 mg/dL Normal [facility] Comment on above: Result Comment: [facility] Glucose Reference Range is dependent on time and content of last meal. Glucose of more than 200 mg/dL in a nonstressed, ambulatory subject supports the diagnosis of Diabetes Mellitus.PERFORMED BY:[address] [address] [address] [place] [phone] MEDICAL DIRECTORAIRAM MAST M.D. Performed By: #### G LUMARYA ####Point of Care testing, INR in Platelet poor plasma by Coagulation assayOrdered By: Anat Perez on 04-30-2023 INR Coag (PPP) [Relative time] 1.3 {INR} [facility] Comment on above: INR Therapeutic Rang e [...] peptide B (Bld) [Mass/Vol] 523.0 pg/mL 5-100 [facility] Partial Thromboplastin Timeo n 04-30-2023 aPTT Coag (Bld) [Time] 30.6 s Normal 25.1-36.5 [facility] Comment on above: Result Comment: A he matocrit value greater than 55% may lead to inaccurate results in coagulation testing. Patients having hematocrit values >55% require a special collection tube for coagulation studies. Please contact the laboratory at [phone] for redraw instructions.PERFORMED BY:[facility] [place], [place] [phone] MEDICAL DIRECTORAIRAM MAST M.D. Performed By: #### H S TROP, BMP, BNP, PTT, PT, CBC ####[facility] [place] [address] [facility] Prothrombin Time INRon 04-30 INR Coag (PPP) [Relative time] 1.3 {INR} Normal [facility] Comment on above: Result Comment: INR Therapeutic [...] valves: 3 - 4.5 Performed By: #### H S TROP, BMP, BNP, PTT, PT, CBC ####[facility] [place] [address] [facility] PT Coag (PPP) [Time] 15.6 s High 9.0-12.9 [facility] Comment on above: Result Comment: A he matocrit value greater than 55% may lead to inaccurate results in coagulation testing. Patients having hematocrit values >55% require a special collection tube for coagulation studies. Please contact the laboratory at [phone] for redraw instructions. Performed By: #### H S TROP, BMP, BNP, PTT, PT, CBC ####[facility] [place] [address] [facility] Prothrombin time (PT)Ordered By: Anat Perez on 04-30-2023 PT Coag (PPP) [Time] 15.6 s 9.0-12.9 [facility] Comment on above: A hematocrit value g reater than 55% may lead to inaccurate results in coagulation testing. Patients having hematocrit values >55% require a special collection tube for coagulation studies. Please contact the laboratory at [phone] for redraw instructions. Troponin I High Sensitivityo n 10-20-2023 Troponin I High Sensitivity 53.7 pg/mL Off scale high 0.0-20.0 [facility] Comment on above: Result Comment: Gabino icaelham Result : Called to and read back by: STEVEN BYRD at: 04/30/2023 19:24:20 by:[id number] BY:[address] [address] [address] [place], [place] [phone] MEDICAL DIRECTORAIRAM MAST M.D. Performed By: #### H S TROP ####[address] [address] [facility] Troponin I High Sensitivity 26.1 pg/mL High 0.0-20.0 [facility] Comment on above: Result Comment: PERF ORMED BY:[address] [place]CE[place], [place] [phone] MEDICAL DIRECTORAIRAM MAST M.D. Performed By: #### H S TROP ####[address] [address] [facility] Troponin I High Sensitivity 24.6 pg/mL High 0.0-20.0 [facility] Comment on above: Result Comment: PERF ORMED BY:[address] [address] [address] [place], [place] [phone] MEDICAL HUMBLE MAST M.D. Performed By: #### H S TROP, BMP, BNP, PTT, PT, CBC ####[place] [id number] [facility] Troponin I High Sensitivity 26.8 pg/mL High 0.0-20.0 [facility] Comment on above: Result Comment: PERF ORMED BY:[address] [address] [address] [place], [place] [phone] MEDICAL HUMBLE MAST M.D. Performed By: #### H S TROP ####[address] [address] [facility] Troponin I.cardiac [Mass/vol ume] in Serum or Plasma by Detection limit <= 0.01 ng/Ordered By: Anat Perez on 04-30-2023 Troponin I.cardiac DL <= 0.01 ng/mL [Mass/Vol] 53.7 pg/mL 0.0-20.0 [facility] Comment on above: Critical Result : Ca lled to and read back by: STEVEN BYRD at: 04/30/2023 19:24:20 by:[id number] Type and Screenon 04-30-2023 ABO and Rh group Nom (Bld) Blood group A Rh(D) positive [facility] Comment on above: Result Comment: PERF ORMED BY:[address] [place], [place] [phone] MEDICAL DIRECTORAIRAM MAST M.D. XR chest 1V portableon 04-30 XR chest 1V portable Normal [facility] XR hip RT min 2V(w/wo pelvis )*on 04-30-2023 XR hip RT min 2V(w/wo pelvis)* Normal [facility] Basic Metabolic Panelon 04-11 Anion gap [Moles/Vol] 8.5 mmol/L Normal 6.0-15.0 [facility] Comment on above: Order Comment: FASTI NG Y Performed By: #### F E and TIBC, CBC, MG, BMP, [id number], LIPID, CIARAN ####[address] [place] [address] [facility] Calcium [Mass/Vol] 8.4 mg/dL Low 8.6-10.3 [facility] Comment on above: Order Comment: FASTI NG Y Performed By: #### F E and TIBC, CBC, MG, BMP, [id number], LIPID, CIARNA ####[address] [address] [facility] Chloride [Moles/Vol] 100 mmol/L Normal 98-107 [facility] Comment on above: Order Comment: FASTI NG Y Performed By: #### F E and TIBC, CBC, MG, BMP, [id number], LIPID, CIARAN ####[address] [place] [address] [facility] CO2 [Moles/Vol] 32.3 mmol/L High 21.0-31.0 [facility] Comment on above: Order Comment: FASTI NG Y Performed By: #### F E and TIBC, CBC, MG, BMP, [id number], LIPID, CIARAN ####[place] [id number] [facility] Creatinine [Mass/Vol] 0.79 mg/dL Normal 0.70-1.30 [facility] Comment on above: Order Comment: FASTI NG Y Performed By: #### F E and TIBC, CBC, MG, BMP, [id number], LIPID, CIARAN ####[address] Creatinine Clr Calc Pharmacy 57.75 [facility] Comment on above: Order Comment: FASTI NG Y Performed By: #### F E and TIBC, CBC, MG, BMP, [id number], LIPID, CIARAN ####[place] [address] [place] GFR/1.73 sq M.predicted MDRD (S/P/Bld) [Vol rate/Area] mL/min/{1.73_m2} [facility] Comment on above: Order Comment: FASTI NG Y Performed By: #### F E and TIBC, CBC, MG, BMP, [id number], LIPID, CIARAN ####[place] [id number] [facility] Glucose [Mass/Vol] 106 mg/dL High 70-100 [facility] Comment on above: Order Comment: FASTI NG Y Result Comment: [place] [facility] Glucose Reference Range is dependent on time and content of last meal. Glucose of more than 200 mg/dL in a nonstressed, ambulatory subject supports the diagnosis of Diabetes Mellitus. ADA recommended reference range Performed By: #### F E and TIBC, CBC, MG, BMP, [id number], LIPID, CIARAN ####[place] [id number] [facility] Potassium [Moles/Vol] 4.8 mmol/L Normal 3.5-5.1 [facility] Comment on above: Order Comment: FASTI NG Y Performed By: #### F E and TIBC, CBC, MG, BMP, [id number], LIPID, CIARAN ####[place] [id number] [facility] Sodium [Moles/Vol] 136 mmol/L Normal 136-145 [facility] Comment on above: Order Comment: FASTI NG Y Performed By: #### F E and TIBC, CBC, MG, BMP, [id number], LIPID, CIARAN ####[address] Urea nitrogen [Mass/Vol] 15 mg/dL Normal 7-25 [facility] Comment on above: Order Comment: FASTI NG Y Performed By: #### F E and TIBC, CBC, MG, BMP, [id number], LIPID, CIARAN ####[address] Complete Blood Count Auto Di ffon 04-29-2023 Basophils (Bld) [#/Vol] 0.0 10*3/uL Normal 0.0-0.2 [facility] Comment on above: Result Comment: PERF ORMED BY:[address] [place], [place] [phone] MEDICAL DIRECTORAIRAM MAST M.D. Performed By: #### F E and TIBC, CBC, MG, BMP, [id number], LIPID, CIARAN ####[place] [id number] [facility] Basophils/100 WBC (Bld) 0.3 % Normal . [facility] Comment on above: Performed By: #### F E and TIBC, CBC, MG, BMP, [id number], LIPID, CIARAN ####[address] Eosinophils (Bld) [#/Vol] 0.1 10*3/uL Normal 0.0-0.45 [facility] Comment on above: Performed By: #### F E and TIBC, CBC, MG, BMP, [id number], LIPID, CIARAN ####[address] Eosinophils/100 WBC (Bld) 1.3 % Normal . [facility] Comment on above: Performed By: #### F E and TIBC, CBC, MG, BMP, [id number], LIPID, CIARAN ####[address] Erythrocyte distribution width (RBC) [Ratio] 18.3 % High 12.0-14.8 [facility] Comment on above: Performed By: #### F E and TIBC, CBC, MG, BMP, [id number], LIPID, CAIRAN ####[address] Hematocrit (Bld) [Volume fraction] 32.9 % Low 38.8-50.0 [facility] Comment on above: Performed By: #### F E and TIBC, CBC, MG, BMP, [id number], LIPID, CIARAN ####[address] Hemoglobin (Bld) [Mass/Vol] 10.9 g/dL Low 13.0-17.0 [facility] Comment on above: Performed By: #### F E and TIBC, CBC, MG, BMP, [id number], LIPID, CIARAN ####[address] Lymphocytes (Bld) [#/Vol] 2.0 10*3/uL Normal 1.00-4.8 [facility] Comment on above: Performed By: #### F E and TIBC, CBC, MG, BMP, [id number], LIPID, CIARAN ####[address] Lymphocytes/100 WBC (Bld) 26.5 % Normal . [facility] Comment on above: Performed By: #### F E and TIBC, CBC, MG, BMP, [id number], LIPID, CIARAN ####[address] MCH (RBC) [Entitic mass] 28.0 pg Normal 27.5-35.2 [facility] Comment on above: Performed By: #### F E and TIBC, CBC, MG, BMP, [id number], LIPID, CIARAN ####[address] MCV (RBC) [Entitic vol] 84.9 fL Normal 83.5-101 [facility] Comment on above: Performed By: #### F E and TIBC, CBC, MG, BMP, [id number], LIPID, CIARAN ####[address] Mean Corpuscular HGB Conc 33.0 g/dL Normal 32.5-35.6 [facility] Comment on above: Performed By: #### F E and TIBC, CBC, MG, BMP, [id number], LIPID, CIARAN ####[address] Monocytes (Bld) [#/Vol] 1.1 10*3/uL High 0.0-0.8 [facility] Comment on above: Performed By: #### F E and TIBC, CBC, MG, BMP, [id number], LIPID, CIARAN ####[address] Monocytes/100 WBC (Bld) 14.9 % Normal . [facility] Comment on above: Performed By: #### F E and TIBC, CBC, MG, BMP, [id number], LIPID, CIARAN ####[address] Neutrophils (Bld) [#/Vol] 4.3 10*3/uL Normal 1.8-7.7 [facility] Comment on above: Performed By: #### F E and TIBC, CBC, MG, BMP, [id number], LIPID, CIARAN ####[address] Neutrophils/100 WBC (Bld) 57.0 % Normal . [facility] Comment on above: Performed By: #### F E and TIBC, CBC, MG, BMP, [id number], LIPID, CIARAN ####[address] NRBC% 0.1 /100{WBC} Normal 0-0.5 [facility] Comment on above: Performed By: #### F E and TIBC, CBC, MG, BMP, [id number], LIPID, CIARAN ####[address] Platelet mean volume (Bld) [Entitic vol] 9.3 fL Normal 6.6-10.1 [facility] Comment on above: Performed By: #### F E and TIBC, CBC, MG, BMP, [id number], LIPID, CIARAN ####[address] Platelets (Bld) [#/Vol] 186 10*3/uL Normal 150-450 [facility] Comment on above: Performed By: #### F E and TIBC, CBC, MG, BMP, [id number], LIPID, CIARAN ####[address] RBC (Bld) [#/Vol] 3.88 10*6/uL Low 3.90-5.60 [facility] Comment on above: Performed By: #### F E and TIBC, CBC, MG, BMP, [id number], LIPID, CIARAN ####[address] WBC (Bld) [#/Vol] 7.5 10*3/uL Normal 4.1-10.5 [facility] Comment on above: Performed By: #### F E and TIBC, CBC, MG, BMP, [id number], LIPID, CIARAN ####[address] ECH echo transthoracicon ECH echo transthoracic Normal [facility] Ferritinon 04-29-2023 Ferritin [Mass/Vol] 41.5 ng/mL Normal 23.9-336.2 [facility] Comment on above: Order Comment: FASTI NG Y Performed By: #### F E and TIBC, CBC, MG, BMP, [id number], LIPID, CIARAN ####[facility] [id number] [facility] [place] [address] [facility] Ferritin [Mass/volume] in Se rum or PlasmaOrdered By: Sushant Cordon on 04-29-2023 Ferritin [Mass/Vol] 41.5 ng/mL 23.9-336.2 [facility] Folate [Mass/volume] in Seru m or PlasmaOrdered By: Sushant Cordon on 04-29-2023 Folate [Mass/Vol] 28.0 ng/mL >5.9 [facility] Comment on above: Folate reference ran ge: >5.9 ng/mlThe WHO technical consultation on folate and vitamin [id number] has determined that folate concentrations lessthan 4 ng/ml are considered deficient. Glucose Poct Glucometerson 1 Glucose [Mass/Vol] 323 mg/dL Normal [facility] Comment on above: Result Comment: [facility] Glucose Reference Range is dependent on time and content of last meal. Glucose of more than 200 mg/dL in a nonstressed, ambulatory subject supports the diagnosis of Diabetes Mellitus.PERFORMED BY:[address] [address] [address] [place], [place] [phone] MEDICAL DIRECTORAIRAM MAST M.D. Performed By: #### G LULS ####Point of Care testing, Glucose [Mass/Vol] 238 mg/dL Normal [facility] Comment on above: Result Comment: [facility] Glucose Reference Range is dependent on time and content of last meal. Glucose of more than 200 mg/dL in a nonstressed, ambulatory subject supports the diagnosis of Diabetes Mellitus.PERFORMED BY:[address] [address] [address] [place], [place] [phone] MEDICAL DIRECTORAIRAM MAST M.D. Performed By: #### G LULS ####Point of Care testing, Commemt1 Glu2: Cleaned Meter [facility] Comment on above: Result Comment: PERF ORMED BY:[place] [address] [address] [place], [place] [phone] MEDICAL HUMBLE MAST M.D. Performed By: #### G LULS ####Point of Care testing, Glucose [Mass/Vol] 81 mg/dL Normal [facility] Comment on above: Result Comment: [place] om Glucose Reference Range is dependent on time and content of last meal. Glucose of more than 200 mg/dL in a nonstressed, ambulatory subject supports the diagnosis of Diabetes Mellitus. Performed By: #### G LULS ####Point of Care testing, Glucose [Mass/Vol] 141 mg/dL [facility] Comment on above: Result Comment: [place] om Glucose Reference Range is dependent on time and content of last meal. Glucose of more than 200 mg/dL in a nonstressed, ambulatory subject supports the diagnosis of Diabetes Mellitus.PERFORMED BY:[place] [address] [address] [place], [place] [phone] MEDICAL HUMBLE MAST M.D. Performed By: #### G LULS ####Point of Care testing, Glucose [Mass/Vol] 87 mg/dL Normal [facility] Comment on above: Result Comment: [place] om Glucose Reference Range is dependent on time and content of last meal. Glucose of more than 200 mg/dL in a nonstressed, ambulatory subject supports the diagnosis of Diabetes Mellitus.PERFORMED BY:[place] [address] [address]alisKESH[place], [place] [phone] MEDICAL HUMBLE MAST M.D. Performed By: #### G LULS ####Point of Care testing, Commemt1 Glu2: Cleaned Meter [facility] Comment on above: Performed By: #### G LULS ####Point of Care testing, Commemt2 WILL NOTIFY DR/RN [facility] Comment on above: Result Comment: PERF ORMED BY:[address] [address] [place], [place] [phone] MEDICAL DIRECTORAIRAM MAST M.D. Performed By: #### G LULS ####Point of Care testing, Glucose [Mass/Vol] 53 mg/dL Off scale [facility] Comment on above: Result Comment: [place] om Glucose Reference Range is dependent on time and content of last meal. Glucose of more than 200 mg/dL in a nonstressed, ambulatory subject supports the diagnosis of Diabetes Mellitus. Performed By: #### G LULS ####Point of Care testing, Commemt1 Glu2: Cleaned Meter [facility] Comment on above: Performed By: #### G LULS ####Point of Care testing, Commemt2 WILL NOTIFY DR/RN [facility] Comment on above: Result Comment: PERF ORMED BY:[address] [address] [address] [place], [place] [phone] MEDICAL HUMBLE MAST M.D. Performed By: #### G LULS ####Point of Care testing, Glucose [Mass/Vol] 47 mg/dL Off scale [facility] Comment on above: Result Comment: [place] om Glucose Reference Range is dependent on time and content of last meal. Glucose of more than 200 mg/dL in a nonstressed, ambulatory subject supports the diagnosis of Diabetes Mellitus. Performed By: #### G LULS ####Point of Care testing, Commemt1 Glu2: Cleaned Meter [facility] Comment on above: Result Comment: PERF ORMED BY:[address] [address] [address] [address] [place], [place] [phone] MEDICAL HUMBLE MAST M.D. Performed By: #### G LULS ####Point of Care testing, Glucose [Mass/Vol] 58 mg/dL Off scale [facility] Comment on above: Result Comment: [place] om Glucose Reference Range is dependent on time and content of last meal. Glucose of more than 200 mg/dL in a nonstressed, ambulatory subject supports the diagnosis of Diabetes Mellitus. Performed By: #### G LULS ####Point of Care testing, Commemt1 Glu2: Cleaned Meter Normal [facility] Comment on above: Result Comment: PERF ORMED BY:[facility] [place], [place] [phone] MEDICAL DIRECTORAIRAM MAST M.D. Performed By: #### G LULS ####Point of Care testing, Glucose [Mass/Vol] 59 mg/dL Off scale low [facility] Comment on above: Result Comment: [facility] Glucose Reference Range is dependent on time and content of last meal. Glucose of more than 200 mg/dL in a nonstressed, ambulatory subject supports the diagnosis of Diabetes Mellitus. Performed By: #### G LULS ####Point of Care testing, Iron [Mass/volume] in Serum or PlasmaOrdered By: Sushant Cordon on 04-29-2023 Iron [Mass/Vol] 45 ug/dL 50-212 [facility] Iron and TIBC Profileon 04-11 % Iron Saturation 13.6 % Low 20-50 [facility] Comment on above: Order Comment: FASTI NG Y Performed By: #### F E and TIBC, CBC, MG, BMP, [id number], LIPID, CIARAN ####[address] [place] [address] [facility] Iron [Mass/Vol] 45 ug/dL Low 50-212 [facility] Comment on above: Order Comment: FASTI NG Y Performed By: #### F E and TIBC, CBC, MG, BMP, [id number], LIPID, CIARAN ####[address] [place] [address] [facility] Total Iron Binding Capacity 330 ug/dL Normal 255-450 [facility] Comment on above: Order Comment: FASTI NG Y Performed By: #### F E and TIBC, CBC, MG, BMP, [id number], LIPID, CIARAN ####[address] [address] [facility] Transferrin [Mass/Vol] 236 mg/dL Normal 203-362 [facility] Comment on above: Order Comment: FASTI NG Y Performed By: #### F E and TIBC, CBC, MG, BMP, [id number], LIPID, CIARAN ####[address] [place] [id number] [facility] Iron binding capacity [Mass/ volume] in Serum or PlasmaOrdered By: Sushant Cordon on 04-29-2023 Iron binding capacity [Mass/Vol] 330 ug/dL 255-450 [facility] Iron saturation [Mass Fracti on] in Serum or PlasmaOrdered By: Sushant Cordon on 04-29-2023 Iron saturation [Mass fraction] 13.6 % 20-50 [facility] Lipid Panelon 04-29-2023 Cholesterol [Mass/Vol] 143 mg/dL Normal 140-200 [facility] Comment on above: Order Comment: FASTI NG Y Result Comment: Chol less than 200 mg/dl low risk Chol 201-239 mg/dl borderline risk Chol 240 mg/dl and greater high risk Performed By: #### F E and TIBC, CBC, MG, BMP, [id number], LIPID, CIARAN ####[address] Cholesterol in HDL [Mass/Vol] 57 mg/dL Normal 23-92 [facility] Comment on above: Order Comment: FASTI NG Y Result Comment: HDL CHOL ATP-III CLASSIFICATION Cardiovascular Risk HDL > or equal to 60 mg/dL LOW HDL < 40 mg/dL HIGH Performed By: #### F E and TIBC, CBC, MG, BMP, [id number], LIPID, CIARAN ####[address] [place] [address] [facility] Cholesterol.total/Cho lesterol in HDL [Mass ratio] 2.5 {ratio} Normal <5.0 [facility] Comment on above: Order Comment: FASTI NG Y Performed By: #### F E and TIBC, CBC, MG, BMP, [id number], LIPID, CIARAN ####[place] [id number] [facility] LDL Cholesterol,Calculate d 80 mg/dL Normal 0-100 [facility] Comment on above: Order Comment: FASTI NG Y Result Comment: LDL ATP III CLASSIFICATION LDL less than 100 mg/dL Optimal LDL 100-129 mg/dL Near or above optimal LDL 130-159 mg/dL Borderline high LDL 160-189 mg/dL High LDL greater than 189 mg/dL Very high Performed By: #### F E and TIBC, CBC, MG, BMP, [id number], LIPID, CIARAN ####[place] [id number] [facility] Triglyceride w/Reflex 32 mg/dL Normal 0-149 [facility] Comment on above: Order Comment: FASTI NG Y Result Comment: TRIG ATP III CLASSIFICATION TRIG less than 150 mg/dL Normal TRIG 150-199 mg/dL Borderline high TRIG 200-500 mg/dL High TRIG greater than 500 mg/dL Very high Standard traceable to the Center for Disease Conrtrol and Prevention (CDC) test method. Performed By: #### F E and TIBC, CBC, MG, BMP, [id number], LIPID, CIARAN ####[place] [id number] [facility] VLDL CHOLESTEROL 6 mg/dL Normal [facility] Comment on above: Order Comment: FASTI NG Y Performed By: #### F E and TIBC, CBC, MG, BMP, [id number], LIPID, CIARAN ####[address] [address] [facility] Magnesiumon 04-29-2023 Magnesium [Mass/Vol] 1.9 mg/dL Normal 1.9-2.7 [facility] Comment on above: Order Comment: FASTI NG Y Performed By: #### F E and TIBC, CBC, MG, BMP, [id number], LIPID, CIARAN ####[place] [id number] [facility] Magnesium [Mass/volume] in S jihan or PlasmaOrdered By: Sushant Cordon on 04-29-2023 Magnesium [Mass/Vol] 1.9 mg/dL 1.9-2.7 [facility] No Panel InformationOrdered By: Sushant Cordon on 04-29-2023 Bedside Glucose #[address]/rn [facility] Transferrin [Mass/volume] in Serum or PlasmaOrdered By: Sushant Cordon on 04-29-2023 Transferrin [Mass/Vol] 236 mg/dL 203-362 [facility] Troponin I High Sensitivityo n 04-29-2023 Troponin I High Sensitivity 32.5 pg/mL High 0.0-20.0 [facility] Comment on above: Result Comment: PERF ORMED BY:[address] [place], [place] [phone] MEDICAL DIRECTORAIRAM MAST M.D. Performed By: #### H S TROP ####[address] [address] [facility] Vit. B12/Folate Profileon Cobalamin (Vitamin B12) [Mass/Vol] 626 pg/mL Normal 180-914 [facility] Comment on above: Order Comment: FASTI NG Y Performed By: #### F E and TIBC, CBC, MG, BMP, [id number], LIPID, CIARAN ####[address] [address] [facility] Folate 28.0 ng/mL Normal >5.9 [facility] Comment on above: Order Comment: FASTI NG Y Result Comment: Lucretia te reference range: >5.9 ng/ml The WHO technical consultation on folate and vitamin b12 deficiencies has determined that folate concentrations less than 4 ng/ml are considered deficient.PERFORMED BY:[address] [address] [place], [place] [phone] MEDICAL DIRECTORAIRAM MAST M.D. Performed By: #### F E and TIBC, CBC, MG, BMP, [id number], LIPID, CIARAN ####[address] [address] [facility] Vitamin B12 ser/plasOrdered By: Sushant Cordon on 04-29-2023 Cobalamin (Vitamin B12) [Mass/Vol] 626 pg/mL 180-914 [facility] A1C with Estimated Average G luon 04-28-2023 Glucose [Mass/Vol] 309 mg/dL Normal [facility] Comment on above: Result Comment: PERF ORMED BY:[address] [address] [address], [place] [phone] MEDICAL DIRECTORAIRAM MAST M.D. Performed By: #### A 1C [facility] eA ####[address] [place] [address] [facility] HbA1c (Bld) [Mass fraction] 12.4 % High 4.3-5.6 [facility] Comment on above: Result Comment: Incr eased risk for diabetes: 5.7 - 6.4 diabetes: >6.4 glycemic control for adults with diabetes: <7.0 Performed By: #### A 1C [facility] eA ####[address] [place] [address] [facility] ABO/Rh Retypeon 04-28-2023 ABO/RH Recheck Result Positive Normal [facility] Comment on above: Result Comment: PERF ORMED BY:[place] [address] [address] [place], [place] [phone] MEDICAL DIRECTORAIRAM MAST M.D. Activated partial thrombopla stin time (aPTT) in platelet poor plasma by coagulation aOrdered By: Vinnie Rivas on 04-28-2023 aPTT Coag (PPP) [Time] 27.8 s 25.1-36.5 [facility] Comment on above: A hematocrit value g reater than 55% may lead to inaccurate results in coagulation testing. Patients having hematocrit values >55% require a special collection tube for coagulation studies. Please contact the laboratory at [phone] for redraw instructions. Alanine aminotransferase [En zymatic activity/volume] in Serum or PlasmaOrdered By: Vinnie Rivas on 04-28-2023 ALT [Catalytic activity/Vol] 34 U/L [facility] Albumin [Mass/volume] in Ser um or Plasma by Bromocresol green (BCG) dye binding methoOrdered By: Vinnie Rivas on 04-28-2023 Albumin BCG dye [Mass/Vol] 4.0 g/dL 3.5-5.7 [facility] Alkaline phosphatase [Enzyma tic activity/volume] in Serum or PlasmaOrdered By: Vinnie Rivas on 04-28-2023 ALP [Catalytic activity/Vol] 108 U/L 34-104 [facility] Aspartate aminotransferase [ Enzymatic activity/volume] in Serum or PlasmaOrdered By: Vinnie Rivas on 04-28-2023 AST [Catalytic activity/Vol] 46 U/L 13-39 [facility] Automated urine color determ inationOrdered By: Vinnie Rivas on 04-28-2023 Color (U) Yellow Normal Yellow [facility] Comment on above: Order Comment: Name Collection Type:: Kimble Catheter Performed By: #### U A ####[address] [place] [address] [facility] B-Type Natriuretic Peptideon 04-28-2023 Natriuretic peptide B (Bld) [Mass/Vol] 665.0 pg/mL High 5-100 [facility] Comment on above: Result Comment: PERF ORMED BY:[address] [place], [place] [phone] MEDICAL DIRECTORAIRAM MAST M.D. Performed By: #### C MP, HS TROP, PTT, PT, CBC, BNP ####[facility] [address] [place] [address] [facility] Basophils Auto (Bld) [#/Vol] Ordered By: Vinnie Rivas on 04-28-2023 Basophils (Bld) [#/Vol] 0.0 10*3/uL 0.0-0.2 [facility] Basophils/100 WBC Auto (Bld) Ordered By: Vinnie Rivas on 04-28-2023 Basophils/100 WBC (Bld) 0.4 % . [facility] Bilirubin Test strip Ql (U)O rdered By: Vinnie Rivas on 04-28-2023 Bilirubin Ql (U) Negative Negative [facility] Bilirubin.total [Mass/volume ] in Serum or PlasmaOrdered By: Vinnie Rivas on 04-28-2023 Bilirubin [Mass/Vol] 0.3 mg/dL 0.3-1.0 [facility] Calcium [Mass/volume] in Ser um or PlasmaOrdered By: Vinnie Rivas on 04-28-2023 Calcium [Mass/Vol] 9.0 mg/dL 8.6-10.3 [facility] Carbon dioxide, total [Moles /volume] in Serum or PlasmaOrdered By: Vinnie Rivas on 04-28-2023 CO2 [Moles/Vol] 30.4 mmol/L 21.0-31.0 [facility] Chloride [Moles/volume] in S jihan or PlasmaOrdered By: Vinnie Rivas on 04-28-2023 Chloride [Moles/Vol] 101 mmol/L 98-107 [facility] Complete Blood Count Auto Di ffon 04-28-2023 Basophils (Bld) [#/Vol] 0.0 10*3/uL Normal 0.0-0.2 [facility] Comment on above: Result Comment: PERF ORMED BY:[address] [place] [phone] MEDICAL DIRECTORAIRAM MAST M.D. Performed By: #### C MP, HS TROP, PTT, PT, CBC, BNP ####[address] Basophils/100 WBC (Bld) 0.4 % Normal . [facility] Comment on above: Performed By: #### C MP, HS TROP, PTT, PT, CBC, BNP ####[place] [id number] [facility] Eosinophils (Bld) [#/Vol] 0.0 10*3/uL Normal 0.0-0.45 [facility] Comment on above: Performed By: #### C MP, HS TROP, PTT, PT, CBC, BNP ####[place] [id number] [facility] Eosinophils/100 WBC (Bld) 0.5 % Normal . [facility] Comment on above: Performed By: #### C MP, HS TROP, PTT, PT, CBC, BNP ####[place] [id number] [facility] Erythrocyte distribution width (RBC) [Ratio] 18.0 % High 12.0-14.8 [facility] Comment on above: Performed By: #### C MP, HS TROP, PTT, PT, CBC, BNP ####[address] Hematocrit (Bld) [Volume fraction] 34.8 % Low 38.8-50.0 [facility] Comment on above: Performed By: #### C MP, HS TROP, PTT, PT, CBC, BNP ####[address] Hemoglobin (Bld) [Mass/Vol] 11.5 g/dL Low 13.0-17.0 [facility] Comment on above: Performed By: #### C MP, HS TROP, PTT, PT, CBC, BNP ####[address] Lymphocytes (Bld) [#/Vol] 1.4 10*3/uL Normal 1.00-4.8 [facility] Comment on above: Performed By: #### C MP, HS TROP, PTT, PT, CBC, BNP ####[address] Lymphocytes/100 WBC (Bld) 14.8 % Normal . [facility] Comment on above: Performed By: #### C MP, HS TROP, PTT, PT, CBC, BNP ####[address] MCH (RBC) [Entitic mass] 28.0 pg Normal 27.5-35.2 [facility] Comment on above: Performed By: #### C MP, HS TROP, PTT, PT, CBC, BNP ####[address] MCV (RBC) [Entitic vol] 84.3 fL Normal 83.5-101 [facility] Comment on above: Performed By: #### C MP, HS TROP, PTT, PT, CBC, BNP ####[address] Mean Corpuscular HGB Conc 33.2 g/dL Normal 32.5-35.6 [facility] Comment on above: Performed By: #### C MP, HS TROP, PTT, PT, CBC, BNP ####[address] Monocytes (Bld) [#/Vol] 0.9 10*3/uL High 0.0-0.8 [facility] Comment on above: Performed By: #### C MP, HS TROP, PTT, PT, CBC, BNP ####[address] Monocytes/100 WBC (Bld) 18.61 % Normal 0.00-20.00 [facility] Comment on above: Performed By: #### C MP, HS TROP, PTT, PT, CBC, BNP ####[address] Monocytes/100 WBC (Bld) 9.3 % Normal . [facility] Comment on above: Performed By: #### C MP, HS TROP, PTT, PT, CBC, BNP ####[address] Neutrophils (Bld) [#/Vol] 7.3 10*3/uL Normal 1.8-7.7 [facility] Comment on above: Performed By: #### C MP, HS TROP, PTT, PT, CBC, BNP ####[address] Neutrophils/100 WBC (Bld) 75.0 % Normal . [facility] Comment on above: Performed By: #### C MP, HS TROP, PTT, PT, CBC, BNP ####[address] NRBC% 0.1 /100{WBC} Normal 0-0.5 [facility] Comment on above: Performed By: #### C MP, HS TROP, PTT, PT, CBC, BNP ####[address] Platelet mean volume (Bld) [Entitic vol] 9.3 fL Normal 6.6-10.1 [facility] Comment on above: Performed By: #### C MP, HS TROP, PTT, PT, CBC, BNP ####[address] Platelets (Bld) [#/Vol] 206 10*3/uL Normal 150-450 [facility] Comment on above: Performed By: #### C MP, HS TROP, PTT, PT, CBC, BNP ####[address] RBC (Bld) [#/Vol] 4.12 10*6/uL Normal 3.90-5.60 [facility] Comment on above: Performed By: #### C MP, HS TROP, PTT, PT, CBC, BNP ####[address] WBC (Bld) [#/Vol] 9.7 10*3/uL Normal 4.1-10.5 [facility] Comment on above: Performed By: #### C MP, HS TROP, PTT, PT, CBC, BNP ####[address] Comprehensive Metabolic Pane jairo 04-28-2023 Albumin [Mass/Vol] 4.0 g/dL Normal 3.5-5.7 [facility] Comment on above: Performed By: #### C MP, HS TROP, PTT, PT, CBC, BNP ####[address] Albumin/Globulin [Mass ratio] 1.3 {ratio} Normal [facility] Comment on above: Performed By: #### C MP, HS TROP, PTT, PT, CBC, BNP ####[address] ALP [Catalytic activity/Vol] 108 U/L High 34-104 [facility] Comment on above: Performed By: #### C MP, HS TROP, PTT, PT, CBC, BNP ####[address] [place] [address] [facility] ALT [Catalytic activity/Vol] 34 U/L Normal 7-52 [facility] Comment on above: Performed By: #### C MP, HS TROP, PTT, PT, CBC, BNP ####[place] [id number] [facility] Anion gap [Moles/Vol] 9.5 mmol/L Normal 6.0-15.0 [facility] Comment on above: Performed By: #### C MP, HS TROP, PTT, PT, CBC, BNP ####[place] [id number] [facility] AST [Catalytic activity/Vol] 46 U/L High 13-39 [facility] Comment on above: Performed By: #### C MP, HS TROP, PTT, PT, CBC, BNP ####[address] Bilirubin [Mass/Vol] 0.3 mg/dL Normal 0.3-1.0 [facility] Comment on above: Performed By: #### C MP, HS TROP, PTT, PT, CBC, BNP ####[address] Calcium [Mass/Vol] 9.0 mg/dL Normal 8.6-10.3 [facility] Comment on above: Performed By: #### C MP, HS TROP, PTT, PT, CBC, BNP ####[place] [id number] [facility] Chloride [Moles/Vol] 101 mmol/L Normal 98-107 [facility] Comment on above: Performed By: #### C MP, HS TROP, PTT, PT, CBC, BNP ####[place] [id number] [facility] CO2 [Moles/Vol] 30.4 mmol/L Normal 21.0-31.0 [facility] Comment on above: Performed By: #### C MP, HS TROP, PTT, PT, CBC, BNP ####[place] [id number] [facility] Creatinine [Mass/Vol] 0.71 mg/dL Normal 0.70-1.30 [facility] Comment on above: Performed By: #### C MP, HS TROP, PTT, PT, CBC, BNP ####[place] [id number] [facility] Creatinine Clr Calc Pharmacy 60.38 [facility] Comment on above: Result Comment: PERF ORMED BY:[address] [place], [place] [phone] MEDICAL DIRECTORAIRAM MAST M.D. Performed By: #### C MP, HS TROP, PTT, PT, CBC, BNP ####[address] GFR/1.73 sq M.predicted MDRD (S/P/Bld) [Vol rate/Area] mL/min/{1.73_m2} [facility] Comment on above: Performed By: #### C MP, HS TROP, PTT, PT, CBC, BNP ####[place] [id number] [facility] Globulin (S) [Mass/Vol] 3.2 g/dL [facility] Comment on above: Performed By: #### C MP, HS TROP, PTT, PT, CBC, BNP ####[address] Glucose [Mass/Vol] 124 mg/dL High 70-100 [facility] Comment on above: Result Comment: [place] Glucose Reference Range is dependent on time and content of last meal. Glucose of more than 200 mg/dL in a nonstressed, ambulatory subject supports the diagnosis of Diabetes Mellitus. ADA recommended reference range Performed By: #### C MP, HS TROP, PTT, PT, CBC, BNP ####[address] Potassium [Moles/Vol] 4.9 mmol/L Normal 3.5-5.1 [facility] Comment on above: Performed By: #### C MP, HS TROP, PTT, PT, CBC, BNP ####[address] [place] [id number] [facility] Protein [Mass/Vol] 7.2 g/dL Normal 6.4-8.9 [facility] Comment on above: Performed By: #### C MP, HS TROP, PTT, PT, CBC, BNP ####[facility] [place] [address] [facility] Sodium [Moles/Vol] 136 mmol/L Normal 136-145 [facility] Comment on above: Performed By: #### C MP, HS TROP, PTT, PT, CBC, BNP ####[address] [place] [id number] [facility] Urea nitrogen [Mass/Vol] 15 mg/dL Normal 7-25 [facility] Comment on above: Performed By: #### C MP, HS TROP, PTT, PT, CBC, BNP ####[place] [address] Creatinine [Mass/volume] in Serum or PlasmaOrdered By: Vinnie Rivas on 04-28-2023 Creatinine [Mass/Vol] 0.71 mg/dL 0.70-1.30 [facility] ECG 12 lead ECGon 04-28-2023 ECG 12 lead ECG Normal [facility] ECG 12 lead ECG Normal [facility] ECG 12 lead ECG Normal [facility] Eosinophils Auto (Bld) [#/Vo l]Ordered By: Vinnie Rivas on 04-28-2023 Eosinophils (Bld) [#/Vol] 0.0 10*3/uL 0.0-0.45 [facility] Eosinophils/100 WBC Auto (Bl d)Ordered By: Vinnie Rivas on 04-28-2023 Eosinophils/100 WBC (Bld) 0.5 % . [facility] Erythrocyte distribution wid th Auto (RBC) [Ratio]Ordered By: Vinnie Rivas on 04-28-2023 Erythrocyte distribution width (RBC) [Ratio] 18.0 % 12.0-14.8 [facility] Fructosamineon 04-28-2023 Fructosamine 565 umol/L High 0-285 [facility] Comment on above: Result Comment: Publ ished reference interval for apparently healthy subjects between age 20 and 60 is 205 - 285 umol/L and in a poorly controlled diabetic population is 228 - 563 umol/L with a mean of 396 umol/L. Performed at: [facility] [address] [id number] [place], [place] [id number] It Support Analyst: Arturo Boles PhD, Phone: [phone] BY:[facility] [place], [place] [phone] MEDICAL DIRECTORAIRAM MAST M.D. Performed By: #### F RU ####[facility] , Fructosamine [Moles/volume] in Serum or PlasmaOrdered By: Sushant Cordon on 04-28-2023 Fructosamine [Moles/Vol] 565 umol/L 0-285 [facility] Comment on above: Published reference interval for apparently healthysubjects between age 20 and 60 is 205 - 285 umol/L and in apoorly controlled diabetic population is 228 - 563 umol/Lwith a mean of 396 umol/L.Performed at: - [facility] [id number] Director: Arturo Boles PhD, Phone: [phone] Globulin Calc (S) [Mass/Vol] Ordered By: Vinnie Rivas on 04-28-2023 Globulin (S) [Mass/Vol] 3.2 g/dL [facility] Center Glucose Glucometer (BldC) [M ass/Vol]Ordered By: Sushant Cordon on 04-28-2023 Glucose [Mass/Vol] 137 mg/dL [facility] Comment on above: Random Glucose Refer ence Range is dependent on time and content of last meal. Glucose of more than 200 mg/dL in a nonstressed, ambulatory subject supports the diagnosis of Diabetes Mellitus. Glucose Poct Glucometerson 1 Glucose [Mass/Vol] 399 mg/dL Normal [facility] Comment on above: Result Comment: [place] om Glucose Reference Range is dependent on time and content of last meal. Glucose of more than 200 mg/dL in a nonstressed, ambulatory subject supports the diagnosis of Diabetes Mellitus.PERFORMED BY:[address] [place] [place], [place] [phone] MEDICAL HUMBLE MAST M.D. Performed By: #### G LULS ####Point of Care testing, Commemt1 Glu2: Cleaned Meter [facility] Comment on above: Result Comment: PERF ORMED BY:[address] [place], [place] [phone] MEDICAL DIRECTORAIRAM MAST M.D. Performed By: #### G LULS ####Point of Care testing, Glucose [Mass/Vol] 156 mg/dL [facility] Comment on above: Result Comment: [place] om Glucose Reference Range is dependent on time and content of last meal. Glucose of more than 200 mg/dL in a nonstressed, ambulatory subject supports the diagnosis of Diabetes Mellitus. Performed By: #### G LULS ####Point of Care testing, Glucose [Mass/Vol] 137 mg/dL [facility] Comment on above: Result Comment: [place] om Glucose Reference Range is dependent on time and content of last meal. Glucose of more than 200 mg/dL in a nonstressed, ambulatory subject supports the diagnosis of Diabetes Mellitus.PERFORMED BY:[address] [place], [place] [phone] MEDICAL HUMBLE MAST M.D. Performed By: #### G LULS ####Point of Care testing, Commemt1 Glu2: Cleaned Meter [facility] Comment on above: Performed By: #### G LULS ####Point of Care testing, Commemt2 WILL NOTIFY DR/RN [facility] Comment on above: Result Comment: PERF ORMED BY:[address] [place], [place] [phone] MEDICAL HUMBLE MAST M.D. Performed By: #### G LULS ####Point of Care testing, Glucose [Mass/Vol] 171 mg/dL [facility] Comment on above: Result Comment: [place] om Glucose Reference Range is dependent on time and content of last meal. Glucose of more than 200 mg/dL in a nonstressed, ambulatory subject supports the diagnosis of Diabetes Mellitus. Performed By: #### G LUMARYA ####Point of Care testing, Glucose [Mass/volume] in Ser um or PlasmaOrdered By: Vinnie Rivas on 04-28-2023 Glucose [Mass/Vol] 124 mg/dL 70-100 [facility] Comment on above: ADA recommended refe [...] from glycated hemoglobin (Bld) [Mass/Vol] 309 mg/dL [facility] Hematocrit Auto (Bld) [Volum e fraction]Ordered By: Vinnie Rivas on 04-28-2023 Hematocrit (Bld) [Volume fraction] 34.8 % 38.8-50.0 [facility] Hemoglobin A1c percentageOrd ered By: Sushant Cordon on 04-28-2023 HbA1c (Bld) [Mass fraction] 12.4 % 4.3-5.6 [facility] Comment on above: Increased risk for d iabetes: 5.7 - 6.4diabetes: >6.4glycemic control for adults with diabetes: <7.0 Hemoglobin [Mass/volume] in BloodOrdered By: Vinnie Rivas on 04-28-2023 Hemoglobin (Bld) [Mass/Vol] 11.5 g/dL 13.0-17.0 [facility] INR in Platelet poor plasma by Coagulation assayOrdered By: Vinnie Rivas on 04-28-2023 INR Coag (PPP) [Relative time] 1.0 {INR} [facility] Comment on above: INR Therapeutic Rang e [...] on 04-28-2023 Ketones (U) [Mass/Vol] Negative Negative [facility] Leukocytes [#/volume] correc robert for nucleated erythrocytes in Blood by Automated counOrdered By: Vinnie Rivas on 04-28-2023 WBC corrected for nucl RBC Auto (Bld) [#/Vol] 9.7 10*3/uL 4.1-10.5 [facility] Lymphocytes Auto (Bld) [#/Vo l]Ordered By: Vinnie Rivas on 04-28-2023 Lymphocytes (Bld) [#/Vol] 1.4 10*3/uL 1.00-4.8 [facility] Lymphocytes/100 WBC Auto (Bl d)Ordered By: Vinnie Rivas on 04-28-2023 Lymphocytes/100 WBC (Bld) 14.8 % . [facility] MCH Auto (RBC) [Entitic mass ]Ordered By: Vinnie Rivas on 04-28-2023 MCH (RBC) [Entitic mass] 28.0 pg 27.5-35.2 [facility] MCHC Auto (RBC) [Mass/Vol]Or dered By: Vinnie Rivas on 04-28-2023 MCHC (RBC) [Mass/Vol] 33.2 g/dL 32.5-35.6 [facility] MCV Auto (RBC) [Entitic vol] Ordered By: Vinnie Rivas on 04-28-2023 MCV (RBC) [Entitic vol] 84.3 fL 83.5-101 [facility] Monocyte distribution width [Entitic volume] in Blood by AutomatedOrdered By: Vinnie Rivas on 04-28-2023 Monocyte distribution width Auto (Bld) [Entitic vol] 18.61 % 0.00-20.00 [facility] Monocytes Auto (Bld) [#/Vol] Ordered By: Vinnie Rivas on 04-28-2023 Monocytes (Bld) [#/Vol] 0.9 10*3/uL 0.0-0.8 [facility] Monocytes/100 WBC Auto (Bld) Ordered By: Vinnie Rivas on 04-28-2023 Monocytes/100 WBC (Bld) 9.3 % . [facility] Natriuretic peptide B [Mass/ Vol]Ordered By: Vinnie Rivas on 04-28-2023 Natriuretic peptide B (Bld) [Mass/Vol] 665.0 pg/mL 5-100 [facility] Neutrophils Auto (Bld) [#/Vo l]Ordered By: Vinnie Rivas on 04-28-2023 Neutrophils (Bld) [#/Vol] 7.3 10*3/uL 1.8-7.7 [facility] Neutrophils/100 WBC Auto (Bl d)Ordered By: Vinnie Rivas on 04-28-2023 Neutrophils/100 WBC (Bld) 75.0 % . [facility] Nitrite Test strip Ql (U)Ord ered By: Vinnie Rivas on 04-28-2023 Nitrite Ql (U) Negative Negative [facility] No Panel InformationOrdered By: Vinnie Rivas on 04-28-2023 Estimated GFR (CKD-EPI) > 60.0 mL/Min [facility] Creatinine Clearance (Chem 60.38 [facility] Nucleated erythrocytes [Pres ence] in Blood by Automated countOrdered By: Vinnie Rivas on 04-28-2023 Nucleated RBC Auto Ql (Bld) 0.1 /100{WBC} 0-0.5 [facility] Partial Thromboplastin Timeo n 04-28-2023 aPTT Coag (Bld) [Time] 27.8 s Normal 25.1-36.5 [facility] Comment on above: Result Comment: A he matocrit value greater than 55% may lead to inaccurate results in coagulation testing. Patients having hematocrit values >55% require a special collection tube for coagulation studies. Please contact the laboratory at [phone] for redraw instructions.PERFORMED BY:[facility] [place], [place] [phone] MEDICAL DIRECTORAIRAM MAST M.D. Performed By: #### C MP, HS TROP, PTT, PT, CBC, BNP ####[facility] [id number] [place] [id number] [facility] Platelet mean volume Auto (B ld) [Entitic vol]Ordered By: Vinnie Rivas on 04-28-2023 Platelet mean volume (Bld) [Entitic vol] 9.3 fL 6.6-10.1 [facility] Platelets Auto (Bld) [#/Vol] Ordered By: Vinnie Rivas on 04-28-2023 Platelets (Bld) [#/Vol] 206 10*3/uL 150-450 [facility] Potassium [Moles/volume] in Serum or PlasmaOrdered By: Vinnie Rivas on 04-28-2023 Potassium [Moles/Vol] 4.9 mmol/L 3.5-5.1 [facility] Protein Auto test strip (U) [Mass/Vol]Ordered By: Vinnie Rivas on 04-28-2023 Protein (U) [Mass/Vol] Negative Negative [facility] Protein [Mass/volume] in Ser um or PlasmaOrdered By: Vinnie Rivas on 04-28-2023 Protein [Mass/Vol] 7.2 g/dL 6.4-8.9 [facility] Prothrombin Time INRon 04-28 INR Coag (PPP) [Relative time] 1.0 {INR} Normal [facility] Comment on above: Result Comment: INR Therapeutic [...] valves: 3 - 4.5 Performed By: #### C MP, HS TROP, PTT, PT, CBC, BNP ####[facility] [id number] [place] [address] [facility] PT Coag (PPP) [Time] 11.8 s Normal 9.0-12.9 [facility] Comment on above: Result Comment: A he matocrit value greater than 55% may lead to inaccurate results in coagulation testing. Patients having hematocrit values >55% require a special collection tube for coagulation studies. Please contact the laboratory at [phone] for redraw instructions. Performed By: #### C MP, HS TROP, PTT, PT, CBC, BNP ####[facility] [place] [address] [facility] Prothrombin time (PT)Ordered By: Vinnie Rivas on 04-28-2023 PT Coag (PPP) [Time] 11.8 s 9.0-12.9 [facility] Comment on above: A hematocrit value g reater than 55% may lead to inaccurate results in coagulation testing. Patients having hematocrit values >55% require a special collection tube for coagulation studies. Please contact the laboratory at [phone] for redraw instructions. RBC Auto (Bld) [#/Vol]Ordere d By: Vinnie Rivas on 04-28-2023 RBC (Bld) [#/Vol] 4.12 10*6/uL 3.90-5.60 [facility] Serum or plasma albumin/glob ulin mass ratioOrdered By: Vinnie Rivas on 04-28-2023 Albumin/Globulin [Mass ratio] 1.3 {ratio} [facility] Serum or plasma anion gap de terminationOrdered By: Vinnie Rivas on 04-28-2023 Anion gap [Moles/Vol] 9.5 mmol/L 6.0-15.0 [facility] Sodium [Moles/volume] in Ser um or PlasmaOrdered By: Vinnie Rivas on 04-28-2023 Sodium [Moles/Vol] 136 mmol/L 136-145 [facility] Specific gravity Auto test s trip (U) [Rel density]Ordered By: Vinnie Rivas on 04-28-2023 Specific gravity (U) [Rel density] 1.009 1.001-1.03 0 [facility] Troponin I High Sensitivityo n 04-28-2023 Troponin I High Sensitivity 38.9 pg/mL High 0.0-20.0 [facility] Comment on above: Result Comment: PERF ORMED BY:[id number] [place], [place] [phone] MEDICAL DIRECTORAIRAM MAST M.D. Performed By: #### H S TROP ####[id number] [place] [address] [facility] Troponin I High Sensitivity 38.6 pg/mL High 0.0-20.0 [facility] Comment on above: Result Comment: PERF ORMED BY:[address] [place], [place] [phone] MEDICAL DIRECTORAIRAM MAST M.D. Performed By: #### H S TROP ####[place] [id number] [facility] Troponin I High Sensitivity 38.3 pg/mL High 0.0-20.0 [facility] Comment on above: Result Comment: PERF ORMED BY:[address] [place], [place] [phone] MEDICAL DIRECTORAIRAM MAST M.D. Performed By: #### H S TROP ####[address] [address] [facility] Troponin I High Sensitivity 35.5 pg/mL High 0.0-20.0 [facility] Comment on above: Result Comment: PERF ORMED BY:[address] [place], [place] [phone] MEDICAL DIRECTORAIRAM MAST M.D. Performed By: #### C MP, HS TROP, PTT, PT, CBC, BNP ####[place] [id number] [facility] Troponin I.cardiac [Mass/vol ume] in Serum or Plasma by Detection limit <= 0.01 ng/Ordered By: Vinnie Rivas on 04-28-2023 Troponin I.cardiac DL <= 0.01 ng/mL [Mass/Vol] 38.3 pg/mL 0.0-20.0 [facility] Urea nitrogen [Mass/volume] in Serum or PlasmaOrdered By: Vinnie Rivas on 04-28-2023 Urea nitrogen [Mass/Vol] 15 mg/dL 02-02 [facility] Urinalysison 04-28-2023 Appearance (U) Clear Normal Clear [facility] Comment on above: Order Comment: Name Collection Type:: Kimble Catheter Performed By: #### U A ####[address] [address] [facility] Bilirubin,Urine Negative Normal Negative [facility] Comment on above: Order Comment: Name Collection Type:: Kimble Catheter Performed By: #### U A ####[address] [address] [facility] Glucose Ql (U) Normal Normal Normal [facility] Comment on above: Order Comment: Name Collection Type:: Kimble Catheter Performed By: #### U A ####[address] [address] [facility] Ketones Ql (U) Negative Normal Negative [facility] Comment on above: Order Comment: Name Collection Type:: Kimble Catheter Performed By: #### U A ####[address] [address] [facility] Leukocyte esterase Test strip Ql (U) Negative Normal Negative [facility] Comment on above: Order Comment: Name Collection Type:: Kimble Catheter Performed By: #### U A ####[address] [address] [facility] Nitrite,Urine Negative Normal Negative [facility] Comment on above: Order Comment: Name Collection Type:: Kimble Catheter Performed By: #### U A ####[address] [address] [facility] Occult Blood,Urine Negative Normal Negative [facility] Comment on above: Order Comment: Name Collection Type:: Kimble Catheter Result Comment: PERF ORMED BY:[address] [place], [place] [phone] MEDICAL HUMBLE MAST M.D. Performed By: #### U A ####[address] [address] [facility] Protein,Urine Negative Normal Negative [facility] Comment on above: Order Comment: Name Collection Type:: Kimble Catheter Performed By: #### U A ####[address] [address] [facility] Specificy [place],Urine 1.009 Normal 1.001-1.03 0 [facility] Comment on above: Order Comment: Name Collection Type:: Kimble Catheter Performed By: #### U A ####[facility] [id number] [place] [address] [facility] Urobilinogen,Urine Normal Normal Normal [facility] Comment on above: Order Comment: Name Collection Type:: Kimble Catheter Performed By: #### U A ####[facility] [id number] [place] [address] [facility] Urine clarity by refractomet ry automatedOrdered By: Vinnie Rivas on 04-28-2023 Clarity Refractometry automated (U) Clear Clear [facility] Urine glucose measurement by automated test strip (mass/volume)Ordered By: Vinnie Rivas on 04-28-2023 Glucose Auto test strip (U) [Mass/Vol] Normal mg/dL Normal [facility] Urine hemoglobin detection b y automated test stripOrdered By: Vinnie Rivas on 04-28-2023 Hemoglobin Auto test strip Ql (U) Negative Negative [facility] Urine leukocyte esterase det ection by automated test stripOrdered By: Vinnie Rivas on 04-28-2023 Leukocyte esterase Auto test strip Ql (U) Negative Negative [facility] Urine pH measurement by auto mated test stripOrdered By: Vinnie Rivas on 04-28-2023 pH (U) 6.5 [pH] Normal 5.0-9.0 [facility] Comment on above: Order Comment: Name Collection Type:: Kimble Catheter Performed By: #### U A ####[facility] [address] [place] [id number] [facility] Urobilinogen Auto test strip (U) [Mass/Vol]Ordered By: Vinnie Rivas on 04-28-2023 Urobilinogen (U) [Mass/Vol] Normal mg/dL Normal [facility] WBC Auto (Bld) [#/Vol]Ordere d By: Vinnie Rivas on 04-28-2023 WBC (Bld) [#/Vol] 9.7 10*3/uL 4.1-10.5 [facility] XR femur RT 2V*on 04-28-2023 XR femur RT 2V* Normal [facility] Coding Summaryon 04-26-2023 Coding Summary HTMLBase 64 AbbithxxIJc2cPd+PGhlYWQ+PE 7PZISdA85eaJPsvG1sK3ISWXeK HucmEZWHZGpUPhGkxnLnTQ2uwM NjZXJu IC8+LK7zGDJlGkgpiPKxx7S5tZ C7K35qbt9yOTlmrWL2LJUwUmQa bwipw8ndeHt6MOkaTajfVqUn NGYufU52DTV9rO45My79bPSkjJ Plf6ogbUt5JvHfQINrYLQ6pGik AAtnn8NvONUmQ94xiYPsa0D8 ZYRwwEougAMrVgPwxEI1tT5zVT hgogjlc2yzwswcQcm7gu35hEVs m4F1wLP4Z5FtwsV9VEKmjYPp DmddfFHHuE9njxnmg3opynzoAx JuGUEpWHr2HGr3IHXenItrZdPb VH21IYC5ZZMbbhNdX4EqZYYb gQayEtQ9s4G7Rb2XK6NWBwmoA6 VNTUFSWTwvdGQ+QU15wb93W7Ay YgsuDrb7XIEcUMS3rSD6xP5d CHRwYOfyy2C1qBW7J4VojeQhrm 3qi9jlRSAcOBjrV36acSJgv7B0 GRWhrXF4NDWkvLhySnZexI69 Oyc+GNSqdJauo2IkHnats8xnx1 sxrUb0XxqoBKSxilTjdGawCEX3 y6IvRp6dBWPgkYT9vJY3qV2t QxSbSuS7WYjuU561KlDfgAXeOp zsS92xC1FylMT+FNGsBxk3RPMr sOdnSB4tE7OjCQYtxeuyuEAt yKuhEY6kTFIfdazfUMFvuA5pSF ToR5i3EfQsFcD6TKhlI0QeCCHh akkrWi08qM6uWfJlGgU0TBye X8LhuxK8KEFkqKFaYVivZXG2L3 7vs4P8LUUxQAFbZIK8lGL2vN7c bGlnbjogbGVmdDsgdmVydGlj XKvoFFygT428XXOuiYhuFbZsTW luZyBEYXRlOiAgMTAvMTYvMjAy MzwvdGQ+SGXoOFN4sQyfNYMj rMXvIJsfGq2foRqloXfhLD2hJJ ZxglioQADhfF4fTNTbrEIdwGsd FB0qAWAodlwza159LvIuWIW0 LAYcbRHmH9LrrX4dXyKaHKPlPH IsC6HmvGEhWAeuY459QXnrQhR8 PGQbowAtO7RqOLXfdRkdLjH7 l9E4On8Hh5UiqztvW2LlfZApQs IbJfvvYQi5U6FyBvawlIQ+PC90 ZNNyOF00VXt3XEB1oXkjHBlw XXYjS6EktU9iFiNnWHVcOACdFz c+PHRhYmxlIHdpZHRoPScxMDAl UnDyuSwlNH9hEj8sAFEbYONx nKejlACeJwFeg7pbBTToSDzjLA 9xgSppQ6UhsQL5WTDfj0u5Wg86 T73jK4FsqGP+ZFUgmQU3qLQ1 kW3bWxXgZkY5IMbtE790GtNaeG OmEiniq7eeh4zcwLn8CfX2TCOa thNmcCouTHA7r4YdRq52N12e IHdpZHRoPSIxNSUiIHZhbGlnbj 0xtX9dUl6+QUIvaFW1vLA1gB3i SrXgYkD8AUhcV227EmRycBBk Edlij8ynl0ptdZf2GwHbSONibs LvdBmhXJZ0b2MmPa45X6QspAtu e1JiAjm6ar03yTIfd9Q8bDO4 Q6ElASJrsnxaoSQotHhaDM6zAX WxtjlrIYZxqW3rBQMlB9m0FkDw LlG4ZJcoA7NwnvL8LLJbvCKd HDQynNNKaD4vfvpwx5pfplrnBl WgGXSlXAy2JIj5CUNtuCwtDtPi XOX5SoX0PLW1wELxiP9zcMki dsqfqV6nCby+MVL9iJIxsZSTSY 1lOjwvdGQ+BYKyNWJ7pFppKIqb XSAbaT1nQKBrC7r3NzRiGaK4 KNwsA0JybtR4GSMplQOaHXYxeZ YWgK3crtbus1alwewhQmCrPBCy GBz5YMs2FKBnfCkqJhLmYCQ8 FpN5TOD1cZQrvK5siTdvesjdqW 9wOyc+ZlbcyClaQUT1IMy4U7Rw Lyd5LLLzbAgoIT2jcPZyOVqh Qp4ucPwyqXryOT0fSLBexhjkm8 74WfMat8fzCYQtiFPjKCoiFQM3 L56td4R2VOTgOWWgWFW6aJO6 pP3umQfjyvlcoYUmwZhxzaOymX erZEerAMbvM189QWSyeGfeOcXa TBz8S6MnCxt3GMHyrHxkHN2i kPUnYCsaHo3axDiasTraLA9xQY Xdzymjd175OlKeo0wyXMJegXDr AQfvUEN2O38yw3U4VMWrWNWt CLB2nDL3lO5kcTmogzmvjOOzvB yudpNhpNqhOSigJHqyM384KELf tCdnTeUxoEr0C2XvExa3IJZh wQmvSQ3wjNRdQSkgNx9nqRflsB ukFX7oFTQgfbrmi018AtEip8vu ESZaiCYvONvuFOE6F95tn2K9 FLSzOXIkCGL8aOJ5dI0xjQehbf ogbGVmdDsgdmVydGljYWwtYWxp S307MAYdmKrfKkVvtBlhgyKt FDieBCs2T9LePejcdEJ+PC90YW QzXN37tYXwnAFed3hvgXg6CoBd QQCxLGB8mOdzEEfvu0CsPPSd X08fgWMso8R8CZZbiYcrlVQcAy EbsQR9aE6fYVnloudhx5rjwvgs Ikmpe2fhvn69uT97R96zQUnb BYItVWFsKVZzMVRecQwbgr4cpM 9wIi8+CRDaqEI8nSM9gY7gINFa ClD8SPgnA671RhQlnNNgWayk o9uhv9gazZy9NlV4EPVrzvBqnR gmAXF3b1VoTx52Z70rCAprDNRu KSPgNIMuKIQweJwxhf3meH4g Ii8+FVXizPH9zSI1qK3tBxWtHj P7BTpbF634XeZwuUUjLumxD25s X9UpeKV+RZRvTvk3JTVdbYkq GR5vcPWlMXzbEz7fBLS3HrQcAr KsBJhkY0ToGFOxgxxgztwcqEJ5 KYQuEBQjsM26Wr6hgLtaGHIs zZMNtW3iacfrw7etvmmrPzEgVU FkWSs9HYp4ALWrtVgrIqVgYUO0 ZoG0NMB9xPIqzZ6rkJrexlpa nF7sP0MhYSYfoqrkAa70qQ0rOl UdFlL8WZtbBao+B8RRIb5OCUET VS1IBXaaEwargAI+PHRkIHN0 aYkdSAqjODXrgO7lKEZrX6p6Tg LuVoJ5ICugA8XiHURctcuuWv44 yY5fMyLkWyS0MQydT3TdnlY9 OOAciBYhFWkzHYY0J84dr3D6MF FxREFbVSV3pTJ2bM5dkBohtgbj bGVmdDsgdmVydGljYWwtYWxp P698YNYcbZofRhV7OjAyYhE5Hf q8C8FdLzh2ZIMgtVrmAW4bbZAv UCczCs8miDzhyWpkKW2qXKAs annkVMGiqF5gFUEnfKDxiZlmSK 0tJRKetleqi038KuJpINY4BVKf oFHoD5JjuM4pNhBrNMUmNBAt S3VwwATbNBrbX861SQpnJgP4EH CbblPrR9BeQCNpgCtjLnS1x3R7 Kq34MfTSCAWdextiwTZ+PHRk IJZ0hJbzTPzcLGYxyN0zOKCcB3 f8WkOxUcV9SLqjV2VyDHUjkjid Qp60yK5fXmLsHyV6RUhbV8Nf nhR9ROAwhUIlHCkaKXF2F57jn5 P4AFSlPIYrKSF3bMD8pR8moRjq bjogbGVmdDsgdmVydGljYWwt BMgaD230FCAihShgJl3AOAB7C4 AtRmq2KTPrrHinHU2qyZXdJEmc Ii6utMcntIwaAR6tFDNodihe UHBhzC3zVOOuyATeaDxfJO9oKX Xchywgn273XhIhAQF1ZEQjjXYb T9QoiL1jVmXcNKXgWZMsK1Pm vFKfBUtdH146PVvqWeJ0WRFkgy ImX3YsIWGdzUbjMjY3t3J6Cj1Z UDwvdGQ+NV36vo66N3IcDpea Grn7ATNeHWQ2uYP1hQ3hZKNgKF bfk7I4jFU8D4WiftZxzq3gy0uv TTFbRImiB99bxUNcd3V8HRTp fIA1WQOniGrvStUvoG54Ytr+PG DuoGttd7OqVgkfg4maa1qnuVc9 LfDfUGMvlpJwjWvgGDB2o7Tz No28G74lTFgoJGHuBUAuKWDuQI MrsWjxij3cfB7eXn8+PGNvbCB3 tFH6oD7wAqGiNzS6WCtkA266 NlAxoCVbFmylt7uqh8cibYw5Uj IeHYRsnmKxxNhjDJP6h8WxOu71 Y1PwsFjbp5VxOft3vg70mCEp d3B7fST7W4MbBBAyofaqjNNpiR obRE4uPDQlvlgiMZRjvL0yLOQw K5b2GjBxZmC3IVtzQ5XnooP6 CNSknSVnLKQumNDSqI6qgjffu8 nnyvceCxDlQTObFDz6VQm4MLOf eZoiAeTsXRH3OiD5IWT3hAPg xE2yhUklasdvrD5jCfa+UGh5c2 nmmBCcMF5smLW5WY56NK36gPTr n2L7pQQ6W9KmNGGfzzkflgqc nAG3GZTeHIAtjP20Di9vcXpiRu 9mYIUuVGS8EWLqmHZeI6PbdU8s VxToDGFvRDLyX9CmfEGoBWqm H968VAkkIjB2CLMohfIrY8EqSP ExdCmsNfT1s0P3Ob6NJW49NW99 DG64wENxu0N9eQI5W4AuGNYj obhdstmwfTN5KBQaYNGzuV07Fl 4bySpfEo3lTZCnPAZ6FLDuoVUf I0WhhM4jEqNlYOLnQPStH7Nt aRYxTPbvG144HHbwTcS7JTWdxb LpV4TdXSJdlYcaKjJ1c4Z0Rl3H Jf24RK89TT55rOUje6L3dCE8 C2QvDZImcoomxgvitBM0VBXcNG CknH92Mr5xpHmmMx8tCYWgZIS8 XPEizQTrG0TalK2jQsBqTUTq ZMAsZ8QnpEPeZQhrM783WAdpYy T4YTHncdOpT7IbEJZrzFbmBvR0 h3J2Jo1EEDlxbum1I9SrJyzj dHI+RL98CBMlQE50wYWcvXVtv7 pwtAx3HdBiFWVsRCR3uVutSQet b7CqPERmH33ylYBwq0M0RLSf bGx (more content not included)... Normal [facility] Consent Formson 04-26-2023 Consent Forms [id number]#1.00OTGTIFF [facility] BUN/Creat Ratioon 04-23-2023 eGFR Non AA >60 Invalid Interpretation Code [facility] Comment on above: Performed By: #### 1 [id number] #### [facility] (DEFAULT) [address] [place] [address] eGFR AA >60 Invalid Interpretation Code [facility] Comment on above: Performed By: #### 1 [id number] #### [facility] (DEFAULT) [address] [place] [address] Creatinine [Mass/Vol] 0.69 mg/dL Low 0.90-1.30 [facility] Comment on above: Performed By: #### 1 [id number] #### [facility] (DEFAULT) [address] [place] [address] Urea nitrogen [Mass/Vol] 14 mg/dL Normal 8-26 [facility] Comment on above: Performed By: #### 1 [id number] #### [facility] (DEFAULT) [address] [place] [address] Urea nitrogen/Creatinine [Mass ratio] 20.2 mg/mg High 4.6-16.2 [facility] Comment on above: Performed By: #### 1 [id number] #### [facility] (DEFAULT) [address] [place] [address] Urogramon 04-23-2023 CT Urogram CLINICAL HISTORY: [...] MD 04/23/23 3:17 pm Technologist: DARYA MANN [facility] Provider Orderson 04-21-2023 Provider Orders [id number]#1.00OTGTIF F [facility] Provider [place] 03-16-2023 Provider Orders [id number]#1.00OTGTIFF Normal [facility] UA RANDOMon 06-05-2022 Bilirubin Ql (U) Negative Normal NEGATIVE [facility] Comment on above: Performed By: #### C MP, LIPID #### [facility] [address] [place] [address] Dr. Kylee Bunch Clarity (U) CLEAR Normal CLEAR [facility] Comment on above: Performed By: #### C MP, LIPID #### [facility] [address] [place] [address] Dr. Kylee Bunch Color (U) YELLOW Normal YELLOW [facility] Comment on above: Performed By: #### C MP, LIPID #### [facility] [address] [place] [address] Dr. Kylee Bunch Glucose Ql (U) Negative Normal NEGATIVE [facility] Comment on above: Performed By: #### C MP, LIPID #### [facility] [address] [place] [address] Dr. Kylee Bunch Hemoglobin Ql (U) TRACE-INTACT Abnormal NEGATIVE [facility] Comment on above: Performed By: #### C MP, LIPID #### [facility] [address] [place] [address] Dr. Kylee Bunch Ketones Ql (U) TRACE Abnormal NEGATIVE [facility] Comment on above: Performed By: #### C MP, LIPID #### [facility] [address] [place] [address] Dr. Kylee Bunch LEUKOCYTES Negative Normal NEGATIVE [facility] Comment on above: Performed By: #### C MP, LIPID #### [facility] [address] [place] [address] Dr. Kylee Bunch Nitrite Ql (U) Negative Normal NEGATIVE [facility] Comment on above: Performed By: #### C MP, LIPID #### [facility] [address] [place] [address] Dr. Kylee Bunch pH (U) 5.5 [pH] Normal 5-9 [facility] Comment on above: Performed By: #### C MP, LIPID #### [facility] [address] [place] [address] Dr. Kylee Bunch SPEC GRAVITY >=1.030 Abnormal 1.005-<=1. 025 [facility] Comment on above: Performed By: #### C MP, LIPID #### [facility] [address] [place] [address] Dr. Kylee Bunch UA PROTEIN Negative Normal NEGATIVE/ TRACE [facility] Comment on above: Performed By: #### C MP, LIPID #### [facility] [address] [place] [address] Dr. Kylee Bunch Urobilinogen Qn (U) 0.2 {Gemini'U}/dL Normal 0.2 - 1. 0 [facility] Comment on above: Performed By: #### C MP, LIPID #### [facility] [address] [place] [address] Dr. Kylee Bunch CBC AUTO DIFFon 05-14-2022 BASO # 0.0 103/ul Normal 0.0-0.1 [facility] Comment on above: Performed By: #### C MP, LIPID #### [facility] [address] [place] [address] Dr. Kylee Bunch Basophils/100 WBC (Bld) 0.7 % Normal 0.2-2.0 [facility] Comment on above: Performed By: #### C MP, LIPID #### [facility] [address] [place] [address] Dr. Kylee Bunch EO # 0.1 103/ul Normal 0.0-0.7 [facility] Comment on above: Performed By: #### C MP, LIPID #### [facility] [address] [place] [address] Dr. Kylee Bunch Eosinophils/100 WBC (Bld) 2.6 % Normal 0.9-7.0 [facility] Comment on above: Performed By: #### C MP, LIPID #### [facility] [address] [place] [address] Dr. Kylee Bunch Erythrocyte distribution width (RBC) [Ratio] 17.2 % Critically high 11.0-15.0 [facility] Comment on above: Performed By: #### C MP, LIPID #### [facility] [address] [place] [address] Dr. Kylee Bunch Hematocrit (Bld) [Volume fraction] 36.1 % Critically low 42.0-54.0 [facility] Comment on above: Performed By: #### C MP, LIPID #### [facility] [address] [place] [address] Dr. Kylee Bunch Hemoglobin (Bld) [Mass/Vol] 12.1 g/dL Critically low 14.0-18.0 [facility] Comment on above: Performed By: #### C MP, LIPID #### [facility] [address] [place] [address] Dr. Kylee Bunch IG # 0.01 10e3/ul Normal 0.00-0.03 [facility] Comment on above: Performed By: #### C MP, LIPID #### [facility] [address] [place] [address] Dr. Kylee Bunch IG % 0.2 % Normal 0.0-0.5 [facility] Comment on above: Performed By: #### C MP, LIPID #### [facility] [address] [place] [address] Dr. Kylee Bunch LYMPH # 1.7 103/ul Normal 1.2-3.8 [facility] Comment on above: Performed By: #### C MP, LIPID #### [facility] [address] [place] [address] Dr. Kylee Bunch Lymphocytes/100 WBC (Bld) 30.9 % Normal 20.5-60.0 [facility] Comment on above: Performed By: #### C MP, LIPID #### [facility] [address] [place] [address] Dr. Kylee Bunch MANUAL DIFF REQ NO Normal [facility] Comment on above: Performed By: #### C MP, LIPID #### [facility] [address] [place] [address] Dr. Kylee Bunch MCH (RBC) [Entitic mass] 27.4 pg Normal 25.9-34.0 [facility] Comment on above: Performed By: #### C MP, LIPID #### [facility] [address] [place] [address] Dr. Kylee Bunch MCHC (RBC) [Mass/Vol] 33.5 g/dL Normal 29.9-35.2 [facility] Comment on above: Performed By: #### C MP, LIPID #### [facility] [address] [place] [address] Dr. Kylee Bunch MCV (RBC) [Entitic vol] 81.9 fL Normal 80.0-94.0 [facility] Comment on above: Performed By: #### C MP, LIPID #### [facility] [address] [place] [address] Dr. Kylee Bunch MONO # 0.7 103/ul Normal 0.3-0.8 [facility] Comment on above: Performed By: #### C MP, LIPID #### [facility] [address] [place] [address] Dr. Kylee Bunch Monocytes/100 WBC (Bld) 12.9 % Critically high 1.7-12.0 [facility] Comment on above: Performed By: #### C MP, LIPID #### [facility] [address] [place] [address] Dr. Kylee Bunch NEUT # 2.9 103/ul Normal 1.4-6.5 [facility] Comment on above: Performed By: #### C MP, LIPID #### [facility] [address] [place] [address] Dr. Kylee Bunch Neutrophils/100 WBC (Bld) 52.7 % Normal 43.0-75.0 [facility] Comment on above: Performed By: #### C MP, LIPID #### [facility] [address] [place] [address] Dr. Kylee Bunch PLT 213 103/ul Normal 150-450 [facility] Comment on above: Performed By: #### C MP, LIPID #### [facility] [address] [place] [address] Dr. Kylee Bunch RBC 4.41 106/ul Critically low 4.70-6.10 [facility] Comment on above: Performed By: #### C MP, LIPID #### [facility] [address] [address] [address] Kylee Bunch WBC 5.4 103/ul Normal 4.0-11.0 [facility] Comment on above: Performed By: #### C MP, LIPID #### [facility] [address] [address] [address] Kylee Bunch LIPID PROFILEon 05-14-2022 CHOL-HDL RATIO NORM SEE BELOW Normal [facility] Comment on above: Result Comment: 3.3 - 4.4 LOW RISK 4.4 - 7.1 AVERAGE RISK 7.1 - 11.0 MODERATE RISK >11.0 HIGH RISK Performed By: #### C MP, LIPID #### [facility] [address] [place] [address] Dr. Kylee Bunch Cholesterol [Mass/Vol] 166 mg/dL Normal <=200 [facility] Comment on above: Performed By: #### C MP, LIPID #### [facility] [address] [place] [address] Dr. Kylee Bunch Cholesterol in HDL [Mass/Vol] 71 mg/dL Critically high 40-60 [facility] Comment on above: Performed By: #### C MP, LIPID #### [facility] [address] [place] [address] Dr. Kylee Bunch Cholesterol in LDL [Mass/Vol] 84.8 mg/dL Normal [facility] Comment on above: Performed By: #### C MP, LIPID #### [facility] [address] [place] [address] Dr. Kylee Bunch Cholesterol.total/Cho lesterol in HDL [Mass ratio] 2.3 {ratio} Normal [facility] Comment on above: Performed By: #### C MP, LIPID #### [facility] [address] [place] [address] Dr. Kylee Bunch HDL NORMAL > or = 60 mg/dl - LO W CARDIOVASCULAR RISK <40 mg/dl - HIGH CARDIOVASCULAR RISK Normal [facility] Comment on above: Performed By: #### C MP, LIPID #### [facility] [address] [place] [address] Dr. Kylee Bunch LDL CALC NORMAL SEE BELOW Normal [facility] Comment on above: Result Comment: <100 mg/dl OPTIMAL 100 - 129 mg/dl NEAR OR ABOVE OPTIMAL 130 - 159 mg/dl BORDERLINE HIGH 160 - 189 mg/dl HIGH >190 mg/dl VERY HIGH Performed By: #### C MP, LIPID #### [facility] [address] [place] [address] Dr. Kylee Bunch Triglyceride [Mass/Vol] 51 mg/dL Normal <=150 [facility] Comment on above: Performed By: #### C MP, LIPID #### [facility] [address] [place] [address] Dr. Kylee Bunch VLDL CALC 10.2 mg/dL Normal [facility] Comment on above: Performed By: #### C MP, LIPID #### [facility] [address] [place] [address] Dr. Kylee Bunch MICROALBUMIN, RAND URon 11-0 mALB 3.0 mg/L Normal <=30.0 [facility] Comment on above: Performed By: #### M ALBR #### [facility] [address] [place] [address] Dr. Kylee Bunch PROF 14(COMP METB)on 022 Albumin [Mass/Vol] 3.5 g/dL Normal 3.4-5.0 [facility] Comment on above: Performed By: #### C MP, LIPID #### [facility] [address] [place] [address] Dr. Kylee Bunch Albumin/Globulin [Mass ratio] 1.0 {ratio} Normal [facility] Comment on above: Performed By: #### C MP, LIPID #### [facility] [address] [place] [address] Dr. Kylee Bunch ALP [Catalytic activity/Vol] 97 U/L Normal 46-116 [facility] Comment on above: Performed By: #### C MP, LIPID #### [facility] [address] [place] [address] Dr. Kylee Bunch ALT [Catalytic activity/Vol] 29 U/L Normal 16-63 [facility] Comment on above: Performed By: #### C MP, LIPID #### [facility] [address] [place] [address] Dr. Kylee Bunch Anion gap [Moles/Vol] 6.7 mmol/L Normal [facility] Comment on above: Performed By: #### C MP, LIPID #### [facility] [address] [place] [address] Dr. Kylee Bunch AST [Catalytic activity/Vol] 28 U/L Normal 15-37 [facility] Comment on above: Performed By: #### C MP, LIPID #### [facility] [address] [place] [address] Dr. Kylee Bunch Bilirubin [Mass/Vol] 0.4 mg/dL Normal 0.2-1.0 [facility] Comment on above: Performed By: #### C MP, LIPID #### [facility] [address] [place] [address] Dr. Kylee Bunch Calcium [Mass/Vol] 8.9 mg/dL Normal 8.5-10.1 [facility] Comment on above: Performed By: #### C MP, LIPID #### [facility] [address] [place] [address] Dr. Kylee Bunch Chloride [Moles/Vol] 99 mmol/L Normal 98-107 [facility] Comment on above: Performed By: #### C MP, LIPID #### [facility] [address] [place] [address] Dr. Kylee Bunch CO2 [Moles/Vol] 33.4 mmol/L Critically high 21.0-32.0 [facility] Comment on above: Performed By: #### C MP, LIPID #### [facility] [address] [place] [address] Dr. Kylee Bunch Creatinine [Mass/Vol] 0.80 mg/dL Normal 0.70-1.30 [facility] Comment on above: Performed By: #### C MP, LIPID #### [facility] [address] [place] [address] Dr. Kylee Bunch EGFR-AF POLISH >60 Normal >=60 [facility] Comment on above: Performed By: #### C MP, LIPID #### [facility] [address] [place] [address] Dr. Kylee Bunch EGFR-NON AF POLISH >60 Normal >=60 [facility] Comment on above: Performed By: #### C MP, LIPID #### [facility] [address] [place] [address] Dr. Kylee Bunch Globulin (S) [Mass/Vol] 3.4 g/dL Normal [facility] Comment on above: Performed By: #### C MP, LIPID #### [facility] [address] [place] [address] Dr. Kylee Bunch Glucose [Mass/Vol] 188 mg/dL Critically high 74-106 [facility] Comment on above: Performed By: #### C MP, LIPID #### [facility] [address] [place] [address] Dr. Kylee Bunch Potassium [Moles/Vol] 4.1 mmol/L Normal 3.5-5.1 [facility] Comment on above: Performed By: #### C MP, LIPID #### [facility] [address] [place] [address] Dr. Kylee Bunch Protein [Mass/Vol] 6.9 g/dL Normal 6.4-8.2 [facility] Comment on above: Performed By: #### C MP, LIPID #### [facility] [address] [place] [address] Dr. Kylee Bunch Sodium [Moles/Vol] 135 mmol/L Critically low 136-145 [facility] Comment on above: Performed By: #### C MP, LIPID #### [facility] [address] [place] [address] Dr. Kylee Bunch Urea nitrogen [Mass/Vol] 15.0 mg/dL Normal 7.0-18.0 [facility] Comment on above: Performed By: #### C MP, LIPID #### [facility] [address] [place] [address] Dr. Kylee Bunch Urea nitrogen/Creatinine [Mass ratio] 18.8 mg/mg Normal [facility] Comment on above: Performed By: #### C MP, LIPID #### [facility] [address] [place] [address] Dr. Kylee Bunch UA RANDOM W/MICROSCOPICon BACTERIA NONE SEEN Normal NONE SEEN [facility] Comment on above: Performed By: #### C MP, LIPID #### [facility] [address] [place] [address] Dr. Kylee Bunch Bilirubin Ql (U) Negative Normal NEGATIVE [facility] Comment on above: Performed By: #### C MP, LIPID #### [facility] [address] [place] [address] Dr. Kylee Bunch CAST NONE SEEN Normal NONE SEEN [facility] Comment on above: Performed By: #### C MP, LIPID #### [facility] [address] [place] [address] Dr. Kylee Bunch Clarity (U) CLEAR Normal CLEAR [facility] Comment on above: Performed By: #### C MP, LIPID #### [facility] [address] [place] [address] Dr. Kylee Bunch Color (U) LT. YELLOW Normal YELLOW [facility] Comment on above: Performed By: #### C MP, LIPID #### [facility] [address] [place] [address] Dr. Kylee Bunch Crystals LM Nom (Urine sed) NONE SEEN Normal NONE SEEN [facility] Comment on above: Performed By: #### C MP, LIPID #### [facility] [address] [place] [address] Dr. Kylee Bunch Epithelial cells LM Ql (Urine sed) FEW Abnormal NONE SEEN /RARE [facility] Comment on above: Performed By: #### C MP, LIPID #### [facility] [address] [place] [address] Dr. Kylee Bunch Glucose Ql (U) Negative Normal NEGATIVE [facility] Comment on above: Performed By: #### C MP, LIPID #### [facility] [address] [place] [address] Dr. Kylee Bunch Hemoglobin Ql (U) TRACE-LYSED Abnormal NEGATIVE [facility] Comment on above: Performed By: #### C MP, LIPID #### [facility] [address] [place] [address] Dr. Kylee Bunch Ketones Ql (U) Negative Normal NEGATIVE [facility] Comment on above: Performed By: #### C MP, LIPID #### [facility] [address] [place] [address] Dr. Kylee Bunch LEUKOCYTES Negative Normal NEGATIVE [facility] Comment on above: Performed By: #### C MP, LIPID #### [facility] [address] [place] [address] Dr. Kylee Bunch MUCOUS NONE SEEN Normal NONE SEEN [facility] Comment on above: Performed By: #### C MP, LIPID #### [facility] [address] [place] [address] Dr. Kylee Bunch Nitrite Ql (U) Negative Normal NEGATIVE [facility] Comment on above: Performed By: #### C MP, LIPID #### [facility] [address] [place] [address] Dr. Kylee Bunch pH (U) 6.0 [pH] Normal 5-9 [facility] Comment on above: Performed By: #### C MP, LIPID #### [facility] [address] [place] [address] Dr. Kylee Bunch RBC 2-5 Abnormal 0-2 [facility] Comment on above: Performed By: #### C MP, LIPID #### [facility] [address] [place] [address] Dr. Kylee Bunch SPEC GRAVITY 1.020 Normal 1.005-<=1. 025 [facility] Comment on above: Performed By: #### C MP, LIPID #### [facility] [address] [place] [address] Dr. Kylee Bunch UA PROTEIN Negative Normal NEGATIVE/ TRACE [facility] Comment on above: Performed By: #### C MP, LIPID #### [facility] [address] [place] [address] Dr. Kylee Bunch Urobilinogen Qn (U) 0.2 {Gemini'U}/dL Normal 0.2 - 1. 0 [facility] Comment on above: Performed By: #### C MP, LIPID #### [facility] [address] [employer], [place] [id number] Dr. Kylee Bunch WBC NONE SEEN Normal NONE SEEN [facility] Comment on above: Performed By: #### C MP, LIPID #### [facility] [address] [employer], [place] [id number] Dr. Kylee Bunch Basic Metab w/rfx MGon 01-07 (cont.) Normal [facility] Comment on above: Result Comment: Aver age GFR for 70 or more years old: 75 mL/min/1.73sq m Chronic Kidney Disease: <60 mL/min/1.73sq m Kidney failure: <15 mL/min/1.73sq m eGFR calculated using average adult body mass. Additional eGFR calculator available at: http://www.[employer]/multiple_crcl_2011.htm Performed By: #### C DP, MELVIN, BMPX, MG, IPF #### [facility] [employer] [address] [place] [address] It Support Analyst: Francisco J Fonseca MD Anion gap [Moles/Vol] 9 mmol/L Normal 9-17 [facility] Comment on above: Performed By: #### C DP, MELVIN, BMPX, MG, IPF #### [facility] [employer] [address] [place], [place] [id number] It Support Analyst: Francisco J Fonseca MD Calcium [Mass/Vol] 7.8 mg/dL Low 8.6-10.4 [facility] Comment on above: Performed By: #### C DP, MELVIN, BMPX, MG, IPF #### [facility] [employer] [address] [place] [id number] It Support Analyst: Francisco J Fonseca MD Chloride [Moles/Vol] 102 mmol/L Normal 98-107 [facility] Comment on above: Performed By: #### C DP, MELVIN, BMPX, MG, IPF #### [facility] [employer] [address] [place] [id number] It Support Analyst: Francisco J Fonseca MD CO2 [Moles/Vol] 24 mmol/L Normal 20-31 [facility] Comment on above: Performed By: #### C DP, MELVIN, BMPX, MG, IPF #### [address] [address] It Support Analyst: Francisco J Fonseca MD Creatinine [Mass/Vol] 0.49 mg/dL Low 0.70-1.20 [facility] Comment on above: Performed By: #### C DP, MELVIN, BMPX, MG, IPF #### [facility] [employer] [address] [place] [id number] It Support Analyst: Francisco J Fonseca MD GFR, Amer >60 Normal >60 [facility] Comment on above: Performed By: #### C DP, MELVIN, BMPX, MG, IPF #### [facility] [employer] [address] [place] [phone] It Support Analyst: Francisco J Fonseca MD GFR,non Amer >60 Normal >60 [facility] Comment on above: Performed By: #### C DP, MELVIN, BMPX, MG, IPF #### [facility] [employer] [address] [place] [id number] It Support Analyst: Francisco J Fonseca MD Glucose [Mass/Vol] 79 mg/dL Normal 70-99 [facility] Comment on above: Performed By: #### C DP, MELVIN, BMPX, MG, IPF #### [facility] [employer] [address] [place] [phone] It Support Analyst: Francisco J Fonseca MD Potassium [Moles/Vol] 3.5 mmol/L Low 3.7-5.3 [facility] Comment on above: Performed By: #### C DP, MELVIN, BMPX, MG, IPF #### [address] [address] It Support Analyst: Francisco J Fonseca MD Sodium [Moles/Vol] 135 mmol/L Normal 135-144 [facility] Comment on above: Performed By: #### C DP, MELVIN, BMPX, MG, IPF #### [address] [address] It Support Analyst: Francisco J Fonseca MD Urea nitrogen [Mass/Vol] 7 mg/dL Low 8-23 [facility] Comment on above: Performed By: #### C DP, MELVIN, BMPX, MG, IPF #### [address] [address] It Support Analyst: Francisco J Fonseca MD CBC with Diffon 01-07-2022 Abs. Basophil 0.00 k/uL Normal 0.0-0.2 [facility] Comment on above: Performed By: #### C DP #### [address] [address] It Support Analyst: Francisco J Fonseca MD Abs.Imm.Granulocyte 0.00 k/uL Normal 0.00-0.30 [facility] Comment on above: Performed By: #### C DP #### [address] [address] It Support Analyst: Francisco J Fonseca MD Abs.Neutrophil (Seg) 8.33 k/uL High 1.8-7.7 [facility] Comment on above: Performed By: #### C DP #### [address] [address] It Support Analyst: Francisco J Fonseca MD Eosinophils (Bld) [#/Vol] 0.11 10*3/uL Normal 0.0-0.4 [facility] Comment on above: Performed By: #### C DP #### [address] [address] It Support Analyst: Francisco J Fonseca MD Lymphocytes (Bld) [#/Vol] 1.22 10*3/uL Normal 1.0-4.8 [facility] Comment on above: Performed By: #### C DP #### [address] [address] It Support Analyst: Francisco J Fonseca MD Monocytes (Bld) [#/Vol] 1.44 10*3/uL High 0.1-0.8 [facility] Comment on above: Performed By: #### C DP #### [address] [address] It Support Analyst: Francisco J Fonseca MD Neutrophil (Seg) 75 % High 36-66 [facility] Comment on above: Performed By: #### C DP #### [address] [address] It Support Analyst: Francisco J Fonseca MD NRBC Automated 0.0 per 100 WBC Normal 0.0 [facility] Comment on above: Performed By: #### C DP #### [address] [address] It Support Analyst: Francisco J Fonseca MD WBC (Bld) [#/Vol] 11.1 10*3/uL Normal 3.5-11.3 [facility] Comment on above: Performed By: #### C DP #### [address] [address] It Support Analyst: Francisco J Fonseca MD Basophils/100 WBC (Bld) 0 % Normal 0-2 [facility] Comment on above: Performed By: #### C DP #### [address] [address] It Support Analyst: Francisco J Fonseca MD Eosinophils/100 WBC (Bld) 1 % Normal 1-4 [facility] Comment on above: Performed By: #### C DP #### [address] [address] It Support Analyst: Francisco J Fonseca MD Immature granulocytes/100 WBC (Bld) 0 % Normal 0 [facility] Comment on above: Performed By: #### C DP #### [address] [address] It Support Analyst: Francisco J Fonseca MD Lymphocytes/100 WBC (Bld) 11 % Low 24-44 [facility] Comment on above: Performed By: #### C DP #### [address] [address] It Support Analyst: Francisco J Fonseca MD Monocytes/100 WBC (Bld) 13 % High 1-7 [facility] Comment on above: Performed By: #### C DP #### [address] [address] It Support Analyst: Francisco J Fonseca MD Morphology Walter (Bld) [Interp] ANISOCYTOSIS PRESENT Normal [facility] Comment on above: Result Comment: MICR OCYTOSIS PRESENT 1+ TARGET CELLS 1+ ACANTHOCYTES Performed By: #### C DP #### [address] [address] It Support Analyst: Francisoc J Fonseca MD Erythrocyte distribution width (RBC) [Ratio] 17.3 % High 11.8-14.4 [facility] Comment on above: Performed By: #### C DP #### [address] [address] It Support Analyst: Francisco J Fonseca MD Hematocrit (Bld) [Volume fraction] 36.6 % Low 40.7-50.3 [facility] Comment on above: Performed By: #### C DP #### [address] [address] It Support Analyst: Francisco J Fonseca MD Hemoglobin (Bld) [Mass/Vol] 13.0 g/dL Normal 13.0-17.0 [facility] Comment on above: Performed By: #### C DP #### [address] [address] It Support Analyst: Francisco J Fonseca MD MCH (RBC) [Entitic mass] 26.5 pg Normal 25.2-33.5 [facility] Comment on above: Performed By: #### C DP #### [address] [address] It Support Analyst: Francisco J Fonseca MD MCHC (RBC) [Mass/Vol] 35.5 g/dL High 28.4-34.8 [facility] Comment on above: Performed By: #### C DP #### [address] [address] It Support Analyst: Francisco J Fonseca MD MCV (RBC) [Entitic vol] 74.5 fL Low 82.6-102.9 [facility] Comment on above: Performed By: #### C DP #### [address] [address] It Support Analyst: Francisco J Fonseca MD Platelet Count See Reflexed IPF Result Normal 138-453 [facility] Comment on above: Performed By: #### C DP #### [address] [address] It Support Analyst: Francisco J Fonseca MD RBC (Bld) [#/Vol] 4.91 10*6/uL Normal 4.21-5.77 [facility] Comment on above: Performed By: #### C DP #### [address] [address] It Support Analyst: Francisco J Fonseca MD Laboratory - Chemistry and C hemistry - challengeon 01-07-2022 Magnesium [Mass/Vol] 1.5 mg/dL Low 1.6 - 2 .6 mg/dL [facility] Anion gap [Moles/Vol] 9 mmol/L 9 - 17 mmol/L [facility] Calcium [Mass/Vol] 7.8 mg/dL Low 8.6 - 10. 4 mg/dL [facility] Chloride [Moles/Vol] 102 mmol/L 98 - 10 7 mmol/L [facility] CO2 [Moles/Vol] 24 mmol/L 20 - 31 mmol/L [facility] Creatinine [Mass/Vol] 0.49 mg/dL Low 0.70 - 1.20 mg/dL [facility] GFR/1.73 sq M.predicted MDRD (S/P/Bld) [Vol rate/Area] [facility] Comment on above: Average GFR for 70 o r more years old: 75 mL/min/1.73sq m Chronic Kidney Disease: <60 mL/min/1.73sq m Kidney failure: <15 mL/min/1.73sq m eGFR calculated using average adult body mass. Additional eGFR calculator available at: http://www.Share Practice/multiple_crcl_2012.htm Glucose [Mass/Vol] 79 mg/dL 70 - 99 mg/dL [facility] Phosphate [Mass/Vol] 2.3 mg/dL Low 2.5 - 4 .5 mg/dL [facility] Potassium [Moles/Vol] 3.5 mmol/L Low 3.7 - 5.3 mmol/L [facility] Sodium [Moles/Vol] 135 mmol/L 135 - 144 mmol/L [facility] Urea nitrogen (BldV) [Mass/Vol] 7 mg/dL Low 8 - 23 mg/dL [facility] Laboratory - Hematology and Cell countson 01-07-2022 Basophils (Bld) [#/Vol] 0.00 10*3/uL [facility] Hematocrit (Bld) [Volume fraction] 36.6 % Low 40.7 - 50.3 % [facility] Hemoglobin (Bld) [Mass/Vol] 13.0 g/dL 13.0 - 17.0 g/dL [facility] MCH (RBC) [Entitic mass] 26.5 pg 25.2 - 33.5 pg [facility] MCHC (RBC) [Mass/Vol] 35.5 g/dL High 28.4 - 34.8 g/dL [facility] MCV (RBC) [Entitic vol] 74.5 fL Low 82.6 - 102.9 fL [facility] Morphology Walter (Bld) [Interp] MICROCYTOSIS PRESENT [facility] Morphology Walter (Bld) [Interp] 1+ TARGET CELLS [facility] Morphology Walter (Bld) [Interp] 1+ ACANTHOCYTES [facility] Platelet distribution width (Bld) [Ratio] 17.3 % High 11.8 - 14.4 % [facility] Platelets (Bld) [#/Vol] See Reflexed IPF Result [facility] RBC (Bld) [#/Vol] 4.91 10*6/uL 4.21 - 5.77 m/uL [facility] Segmented neutrophils/100 WBC (Bld) 75 % High 36 - 66 % [facility] WBC (Bld) [#/Vol] 11.1 10*3/uL [facility]AM[facility] Magnesiumon 01-07-2022 Magnesium [Mass/Vol] 1.5 mg/dL Low 1.6-2.6 [facility] Comment on above: Performed By: #### C DP #### [facility] [employer] [address] [id number] It Support Analyst: Francisco J Fonseca MD No Panel Informationon 01-07 Absolute Eos # 0.11 [facility] Absolute Immature Granulocyte 0.00 [facility] Absolute Lymph # 1.22 [facility] Absolute [place] # 1.44 High [facility] Interpretation and review of laboratory results Abnormal [facility] NRBC Automated 0.0 0.0 per 100 WBC [facility] Segs Absolute 8.33 High [facility] Platelet, Fluorescence 230 [facility] Comment on above: ORDERED BY LAB Platelet, Immature Fraction 10.1 % 1.1 - 10.3 % [facility] Comment on above: ORDERED BY LAB [facility] Interpretation and review of laboratory results Abnormal [facility] GFR >60 >60 mL/min [facility] GFR Non- >60 >60 mL/min [facility] Interpretation and review of laboratory results Abnormal [facility] PLT, Immature Fract.on 01-07 Platelet, Fluoresc. 230 k/uL Normal 138-453 [facility] Comment on above: Result Comment: ORDE RED BY LAB Performed By: #### C DP #### [address] [place] [address] It Support Analyst: Francisco J Fonseca MD PLT, Immature Fract. 10.1 % Normal 1.1-10.3 [facility] Comment on above: Result Comment: ORDE RED BY LAB Performed By: #### C DP #### [address] [address] It Support Analyst: Francisco J Fonseca MD Phosphorus, Inorg.on 022 Phosphorus, Inorg. 2.3 mg/dL Low 2.5-4.5 [facility] Comment on above: Performed By: #### C DP, MELVIN, BMPX, MG, IPF #### [address] [address] It Support Analyst: Francisco J Fonseca MD Basic Metab w/rfx MGon 01-06 (cont.) Normal [facility] Comment on above: Result Comment: Aver age GFR for 70 or more years old: 75 mL/min/1.73sq m Chronic Kidney Disease: <60 mL/min/1.73sq m Kidney failure: <15 mL/min/1.73sq m eGFR calculated using average adult body mass. Additional eGFR calculator available at: http://www.CHIC.TV.Shelfari/multiple_crcl_2012.htm Performed By: #### C DP, MELVIN, BMPX, IPF #### [facility] [employer] [address] [place] [address] It Support Analyst: Francisco J Fonseca MD Anion gap [Moles/Vol] 11 mmol/L Normal 9-17 [facility] Comment on above: Performed By: #### C DP, MELVIN, BMPX, IPF #### [facility] [address] [place] [address] It Support Analyst: Francisco J Fonseca MD Calcium [Mass/Vol] 7.7 mg/dL Low 8.6-10.4 [facility] Comment on above: Performed By: #### C DP, MELVIN, BMPX, IPF #### [facility] [employer] [address] [place] [address] It Support Analyst: Francisco J Fonseca MD Chloride [Moles/Vol] 99 mmol/L Normal 98-107 [facility] Comment on above: Performed By: #### C DP, MELVIN, BMPX, IPF #### [facility] [employer] [address] [place] [address] It Support Analyst: Francisco J Fonseca MD CO2 [Moles/Vol] 23 mmol/L Normal 20-31 [facility] Comment on above: Performed By: #### C DP, MELVIN, BMPX, IPF #### [facility] [employer] [address] [place] [address] It Support Analyst: Francisco J Fonseca MD Creatinine [Mass/Vol] 0.50 mg/dL Low 0.70-1.20 [facility] Comment on above: Performed By: #### C DP, MELVIN, BMPX, IPF #### [facility] [address] [place] [address] It Support Analyst: Francisco J Fonseca MD GFR, Amer >60 Normal >60 [facility] Comment on above: Performed By: #### C DP, MELVIN, BMPX, IPF #### [facility] [address] [place] [address] It Support Analyst: Francisco J Fonseca MD GFR,non Amer >60 Normal >60 [facility] Comment on above: Performed By: #### C DP, MELVIN, BMPX, IPF #### [address] [address] It Support Analyst: Francisco J Fonseca MD Glucose [Mass/Vol] 149 mg/dL High 70-99 [facility] Comment on above: Performed By: #### C DP, MELVIN, BMPX, IPF #### [address] [address] It Support Analyst: Francisco J Fonseca MD Potassium [Moles/Vol] 3.6 mmol/L Low 3.7-5.3 [facility] Comment on above: Performed By: #### C DP, MELVIN, BMPX, IPF #### [address] [address] It Support Analyst: Francisco J Fonseca MD Sodium [Moles/Vol] 133 mmol/L Low 135-144 [facility] Comment on above: Performed By: #### C DP, MELVIN, BMPX, IPF #### [address] [address] It Support Analyst: Francisco J Fonseca MD Urea nitrogen [Mass/Vol] 11 mg/dL Normal 8-23 [facility] Comment on above: Performed By: #### C DP, MELVIN, BMPX, IPF #### [address] [address] It Support Analyst: Francisco J Fonseca MD CBC with Diffon 01-06-2022 Abs. Basophil 0.03 k/uL Normal 0.00-0.20 [facility] Comment on above: Performed By: #### C DP, MELVIN, BMPX, IPF #### [facility] [employer] [address] [place] [address] It Support Analyst: Francisco J Fonseca MD Abs.Imm.Granulocyte 0.05 k/uL Normal 0.00-0.30 [facility] Comment on above: Performed By: #### C DP, MELVIN, BMPX, IPF #### [place] [address] It Support Analyst: Francisco J Fonseca MD Abs.Neutrophil (Seg) 11.21 k/uL High 1.50-8.10 [facility] Comment on above: Performed By: #### C DP, MELVIN, BMPX, IPF #### [place] [address] It Support Analyst: Francisco J Fonseca MD Basophils/100 WBC (Bld) 0 % Normal 0-2 [facility] Comment on above: Performed By: #### C DP, MELVIN, BMPX, IPF #### [place] [address] It Support Analyst: Francisco J Fonseca MD Eosinophils (Bld) [#/Vol] 0.09 10*3/uL Normal 0.00-0.44 [facility] Comment on above: Performed By: #### C DP, MELVIN, BMPX, IPF #### [place] [address] It Support Analyst: Francisco J Fonseca MD Eosinophils/100 WBC (Bld) 1 % Normal 1-4 [facility] Comment on above: Performed By: #### C DP, MELVIN, BMPX, IPF #### [place] [address] It Support Analyst: Francisco J Fonseca MD Erythrocyte distribution width (RBC) [Ratio] 18.4 % High 11.8-14.4 [facility] Comment on above: Performed By: #### C DP, MELVIN, BMPX, IPF #### [facility] [employer] [address] [place] [address] It Support Analyst: Francisco J Fonseca MD Hematocrit (Bld) [Volume fraction] 38.2 % Low 40.7-50.3 [facility] Comment on above: Performed By: #### C DP, MELVIN, BMPX, IPF #### [address] [address] It Support Analyst: Francisco J Fonseca MD Hemoglobin (Bld) [Mass/Vol] 13.2 g/dL Normal 13.0-17.0 [facility] Comment on above: Performed By: #### C DP, MELVIN, BMPX, IPF #### [address] [address] It Support Analyst: Francisco J Fonseca MD Immature granulocytes/100 WBC (Bld) 0 % Normal 0 [facility] Comment on above: Performed By: #### C DP, MELVIN, BMPX, IPF #### [address] [address] It Support Analyst: Francisco J Fonseca MD Lymphocytes (Bld) [#/Vol] 0.82 10*3/uL Low 1.10-3.70 [facility] Comment on above: Performed By: #### C DP, MELVIN, BMPX, IPF #### [address] [address] It Support Analyst: Francisco J Fonseca MD Lymphocytes/100 WBC (Bld) 6 % Low 24-43 [facility] Comment on above: Performed By: #### C DP, MELVIN, BMPX, IPF #### [facility] [employer] [address] [place] [address] It Support Analyst: Francisco J Fonseca MD MCH (RBC) [Entitic mass] 26.7 pg Normal 25.2-33.5 [facility] Comment on above: Performed By: #### C DP, MELVIN, BMPX, IPF #### [facility] [employer] [address] [place] [address] It Support Analyst: Francisco J Fonseca MD MCHC (RBC) [Mass/Vol] 34.6 g/dL Normal 28.4-34.8 [facility] Comment on above: Performed By: #### C DP, MELVIN, BMPX, IPF #### [address] [address] It Support Analyst: Francisco J Fonseca MD MCV (RBC) [Entitic vol] 77.2 fL Low 82.6-102.9 [facility] Comment on above: Performed By: #### C DP, MELVIN, BMPX, IPF #### [address] [address] It Support Analyst: Francisco J Fonseca MD Monocytes (Bld) [#/Vol] 1.14 10*3/uL Normal 0.10-1.20 [facility] Comment on above: Performed By: #### C DP, MELVIN, BMPX, IPF #### [address] [address] It Support Analyst: Francisco J Fonseca MD Monocytes/100 WBC (Bld) 9 % Normal 3-12 [facility] Comment on above: Performed By: #### C DP, MELVIN, BMPX, IPF #### [address] [address] It Support Analyst: Francisco J Fonseca MD Neutrophil (Seg) 84 % High 36-65 [facility] Comment on above: Performed By: #### C DP, MELVIN, BMPX, IPF #### [facility] [employer] [address] [place] [address] It Support Analyst: Francisco J Fonseca MD NRBC Automated 0.0 per 100 WBC Normal 0.0 [facility] Comment on above: Performed By: #### C DP, MELVIN, BMPX, IPF #### [facility] [employer] [address] [place] [address] It Support Analyst: Francisco J Fonseca MD Platelet Count See Reflexed IPF Result Normal 138-453 [facility] Comment on above: Performed By: #### C DP, MELVIN, BMPX, IPF #### [facility] [address] [place] [address] It Support Analyst: Francisco J Fonseca MD RBC (Bld) [#/Vol] 4.95 10*6/uL Normal 4.21-5.77 [facility] Comment on above: Performed By: #### C DP, MELVIN, BMPX, IPF #### [facility] [address] [place] [address] It Support Analyst: Francisco J Fonseca MD RBC morphology finding Nom (Bld) ANISOCYTOSIS PRESENT Normal [facility] Comment on above: Result Comment: MICR OCYTOSIS PRESENT Performed By: #### C DP, MELVIN, BMPX, IPF #### [facility] [address] [place] [address] It Support Analyst: Francisco J Fonseca MD WBC (Bld) [#/Vol] 13.3 10*3/uL High 3.5-11.3 [facility] Comment on above: Performed By: #### C DP, MELVIN, BMPX, IPF #### [employer] [facility] [place] [address] It Support Analyst: Francisco J Fonseca MD Laboratory - Chemistry and C hemistry - challengeon 01-06-2022 Anion gap [Moles/Vol] 11 mmol/L 9 - 17 mmol/L [facility] Calcium [Mass/Vol] 7.7 mg/dL Low 8.6 - 10. 4 mg/dL [facility] Chloride [Moles/Vol] 99 mmol/L 98 - 10 7 mmol/L [facility] CO2 [Moles/Vol] 23 mmol/L 20 - 31 mmol/L [facility] Creatinine [Mass/Vol] 0.5 mg/dL Low 0.70 - 1.20 mg/dL [facility] GFR/1.73 sq M.predicted MDRD (S/P/Bld) [Vol rate/Area] [facility] [employer] Comment on above: Average GFR for 70 o r more years old: 75 mL/min/1.73sq m Chronic Kidney Disease: <60 mL/min/1.73sq m Kidney failure: <15 mL/min/1.73sq m eGFR calculated using average adult body mass. Additional eGFR calculator available at: http://www.Share Practice/multiple_crcl_2012.htm Glucose [Mass/Vol] 149 mg/dL High 70 - 99 mg/dL [facility] Phosphate [Mass/Vol] 2.5 mg/dL 2.5 - 4 .5 mg/dL [facility] Potassium [Moles/Vol] 3.6 mmol/L Low 3.7 - 5.3 mmol/L [facility] Sodium [Moles/Vol] 133 mmol/L Low 135 - 144 mmol/L [facility] Urea nitrogen (BldV) [Mass/Vol] 11 mg/dL 8 - 23 mg/dL [facility] Laboratory - Hematology and Cell countson 01-06-2022 Basophils (Bld) [#/Vol] 0.03 10*3/uL [facility] Basophils/100 WBC (Bld) 0 % 0 - 2 % [facility] Eosinophils/100 WBC (Bld) 1 % 1 - 4 % [facility] Hematocrit (Bld) [Volume fraction] 38.2 % Low 40.7 - 50.3 % [facility] Hemoglobin (Bld) [Mass/Vol] 13.2 g/dL 13.0 - 17.0 g/dL [facility] Immature granulocytes/100 WBC (Bld) 0 % 0 [facility] Lymphocytes/100 WBC (Bld) 6 % Low 24 - 43 % [facility] MCH (RBC) [Entitic mass] 26.7 pg 25.2 - 33.5 pg [facility] MCHC (RBC) [Mass/Vol] 34.6 g/dL 28.4 - 34.8 g/dL [facility] MCV (RBC) [Entitic vol] 77.2 fL Low 82.6 - 102.9 fL [facility] Monocytes/100 WBC (Bld) 9 % 3 - 12 % [facility] Platelet distribution width (Bld) [Ratio] 18.4 % High 11.8 - 14.4 % [facility] Platelets (Bld) [#/Vol] See Reflexed IPF Result [facility] RBC (Bld) [#/Vol] 4.95 10*6/uL 4.21 - 5.77 m/uL [facility] RBC (Bld) [#/Vol] ANISOCYTOSIS PRESENT [facility] Comment on above: MICROCYTOSIS PRESENT Segmented neutrophils/100 WBC (Bld) 84 % High 36 - 65 % [facility] WBC (Bld) [#/Vol] 13.3 10*3/uL High [facility] No Panel Informationon 01-06 Platelet, Fluorescence 252 [facility] Platelet, Immature Fraction 10.1 % 1.1 - 10.3 % [facility] Absolute Eos # 0.09 [facility] Absolute Immature Granulocyte 0.05 [facility] Absolute Lymph # 0.82 Low [facility] Absolute [place] # 1.14 [facility] Interpretation and review of laboratory results Abnormal [facility] NRBC Automated 0.0 0.0 per 100 WBC [facility] Segs Absolute 11.21 High [facility] GFR >60 >60 mL/min [facility] GFR Non- >60 >60 mL/min [facility] Interpretation and review of laboratory results Abnormal [facility] PLT, Immature Fract.on 01-06 Platelet, Fluoresc. 252 k/uL Normal 138-453 [facility] Comment on above: Performed By: #### C DP, MELVIN, BMPX, IPF #### [employer] [address] [place] [address] It Support Analyst: Francisco J Fonseca MD PLT, Immature Fract. 10.1 % Normal 1.1-10.3 [facility] Comment on above: Performed By: #### C DP, MELVIN, BMPX, IPF #### [employer] [address] [place] [address] It Support Analyst: Francisco J Fonseca MD Phosphorus, Inorg.on 022 Phosphorus, Inorg. 2.5 mg/dL Normal 2.5-4.5 [facility] Comment on above: Performed By: #### C DP, MELVIN, BMPX, IPF #### [address] [address] It Support Analyst: Francisco J Fonseca MD Basic Metab w/rfx MGon 01-05 Potassium [Moles/Vol] 3.4 mmol/L Low 3.7-5.3 [facility] Comment on above: Performed By: #### C DP, MELVIN, BMPX, IPF #### [facility] [employer] [address] [place] [address] It Support Analyst: Francisco J Fonseca MD Urea nitrogen [Mass/Vol] 14 mg/dL Normal 8-23 [facility] Comment on above: Performed By: #### C DP, MELVIN, BMPX, IPF #### [facility] [employer] [address] [place] [address] It Support Analyst: Francisco J Fonseca MD Anion gap [Moles/Vol] 12 mmol/L Normal 9-17 [facility] Comment on above: Performed By: #### C DP, MELVIN, BMPX, IPF #### [facility] [employer] [address] [place] [address] It Support Analyst: Francisco J Fonseca MD Calcium [Mass/Vol] 8.1 mg/dL Low 8.6-10.4 [facility] Comment on above: Performed By: #### C DP, MELVIN, BMPX, IPF #### [facility] [employer] [address] [place] [address] It Support Analyst: Francisco J Fonseca MD Chloride [Moles/Vol] 98 mmol/L Normal 98-107 [facility] Comment on above: Performed By: #### C DP, MELVIN, BMPX, IPF #### [facility] [address] [place] [address] It Support Analyst: Francisco J Fonseca MD CO2 [Moles/Vol] 24 mmol/L Normal 20-31 [facility] Comment on above: Performed By: #### C DP, MELVIN, BMPX, IPF #### [facility] [address] [place] [address] It Support Analyst: Francisco J Fonseca MD Creatinine [Mass/Vol] 0.54 mg/dL Low 0.70-1.20 [facility] Comment on above: Performed By: #### C DP, MEVLIN, BMPX, IPF #### [facility] [employer] [address] [place] [address] It Support Analyst: Francisco J Fonseca MD Glucose [Mass/Vol] 122 mg/dL High 70-99 [facility] Comment on above: Performed By: #### C DP, MELVIN, BMPX, IPF #### [facility] [employer] [address] [place] [address] It Support Analyst: Francisco J Fonseca MD Sodium [Moles/Vol] 134 mmol/L Low 135-144 [facility] Comment on above: Performed By: #### C DP, MELVIN, BMPX, IPF #### [facility] [employer] [address] [place] [address] It Support Analyst: Francisco J Fonseca MD (cont.) [facility] Comment on above: Result Comment: Aver age GFR for 70 or more years old: 75 mL/min/1.73sq m Chronic Kidney Disease: <60 mL/min/1.73sq m Kidney failure: <15 mL/min/1.73sq m eGFR calculated using average adult body mass. Additional eGFR calculator available at: http://www.CHIC.TV.Shelfari/multiple_crcl_2012.htm Performed By: #### C DP, MELVIN, BMPX, IPF #### [facility] [address] [place] [address] It Support Analyst: Francisco J Fonseca MD Anion gap [Moles/Vol] 11 mmol/L Normal 9-17 [facility] Comment on above: Performed By: #### C DP, MELVIN, BMPX, IPF #### [facility] [employer] [address] [place] [address] It Support Analyst: Francisco J Fonseca MD Calcium [Mass/Vol] 9.1 mg/dL Normal 8.6-10.4 [facility] Comment on above: Performed By: #### C DP, MELVIN, BMPX, IPF #### [facility] [employer] [address] [place] [address] It Support Analyst: Francisco J Fonseca MD Chloride [Moles/Vol] 99 mmol/L Normal 98-107 [facility] Comment on above: Performed By: #### C DP, MELVIN, BMPX, IPF #### [facility] [employer] [address] [place] [address] It Support Analyst: Francisco J Fonseca MD CO2 [Moles/Vol] 25 mmol/L Normal 20-31 [facility] Comment on above: Performed By: #### C DP, MELVIN, BMPX, IPF #### [facility] [employer] [address] [place] [address] It Support Analyst: Francisco J Fonseca MD Creatinine [Mass/Vol] 0.57 mg/dL Low 0.70-1.20 [facility] Comment on above: Performed By: #### C DP, MELVIN, BMPX, IPF #### [facility] [address] [place] [address] It Support Analyst: Francisco J Fonseca MD GFR, Amer >60 Normal >60 [facility] Comment on above: Performed By: #### C DP, MELVIN, BMPX, IPF #### [facility] [address] [place] [address] It Support Analyst: Francisco J Fonseca MD GFR,non Amer >60 Normal >60 [facility] Comment on above: Performed By: #### C DP, MELVIN, BMPX, IPF #### [address] [address] It Support Analyst: Francisco J Fonseca MD Glucose [Mass/Vol] 129 mg/dL High 70-99 [facility] Comment on above: Performed By: #### C DP, MELVIN, BMPX, IPF #### [address] [address] It Support Analyst: Francisco J Fonseca MD Potassium [Moles/Vol] 3.5 mmol/L Low 3.7-5.3 [facility] Comment on above: Performed By: #### C DP, MELVIN, BMPX, IPF #### [address] [address] It Support Analyst: Francisco J Fonseca MD Sodium [Moles/Vol] 135 mmol/L Normal 135-144 [facility] Comment on above: Performed By: #### C DP, MELVIN, BMPX, IPF #### [address] [address] It Support Analyst: Francisco J Fonseca MD Urea nitrogen [Mass/Vol] 15 mg/dL Normal 8-23 [facility] Comment on above: Performed By: #### C DP, MELVIN, BMPX, IPF #### [address] [address] It Support Analyst: Francisco J Fonseca MD (cont.) Normal [facility] Comment on above: Result Comment: Aver age GFR for 70 or more years old: 75 mL/min/1.73sq m Chronic Kidney Disease: <60 mL/min/1.73sq m Kidney failure: <15 mL/min/1.73sq m eGFR calculated using average adult body mass. Additional eGFR calculator available at: http://www.CHIC.TV.Shelfari/multiple_crcl_2012.htm Performed By: #### C DP, MELVIN, BMPX, IPF #### [facility] [employer] [address] [place] [address] It Support Analyst: Francisco J Fonseca MD Anion gap [Moles/Vol] 15 mmol/L Normal 9-17 [facility] Comment on above: Performed By: #### C DP, MELVIN, BMPX, IPF #### [facility] [employer] [address] [place] [address] It Support Analyst: Francisco J Fonseca MD Calcium [Mass/Vol] 8.2 mg/dL Low 8.6-10.4 [facility] Comment on above: Performed By: #### C DP, MELVIN, BMPX, IPF #### [facility] [employer] [address] [place] [id number] It Support Analyst: Francisco J Fonseca MD Chloride [Moles/Vol] 98 mmol/L Normal 98-107 [facility] Comment on above: Performed By: #### C DP, MELVIN, BMPX, IPF #### [facility] [employer] [address] [place] [address] It Support Analyst: Francisco J Fonseca MD CO2 [Moles/Vol] 23 mmol/L Normal 20-31 [facility] Comment on above: Performed By: #### C DP, MELVIN, BMPX, IPF #### [facility] [employer] [address] [place] [address] It Support Analyst: Francisco J Fonseca MD Creatinine [Mass/Vol] 0.66 mg/dL Low 0.70-1.20 [facility] Comment on above: Performed By: #### C DP, MELVIN, BMPX, IPF #### [facility] [employer] [address] [place] [address] It Support Analyst: Francisco J Fonseca MD GFR, Amer >60 Normal >60 [facility] Comment on above: Performed By: #### C DP, MELVIN, BMPX, IPF #### [address] [address] It Support Analyst: Francisco J Fonseca MD GFR,non Amer >60 Normal >60 [facility] Comment on above: Performed By: #### C DP, MELVIN, BMPX, IPF #### [address] [address] It Support Analyst: Francisco J Fonseca MD Glucose [Mass/Vol] 90 mg/dL Normal 70-99 [facility] Comment on above: Performed By: #### C DP, MELVIN, BMPX, IPF #### [address] [address] It Support Analyst: Francisco J Fonseca MD Potassium [Moles/Vol] 3.7 mmol/L Normal 3.7-5.3 [facility] Comment on above: Performed By: #### C DP, MELVIN, BMPX, IPF #### [address] [address] It Support Analyst: Francisco J Fonseca MD Sodium [Moles/Vol] 136 mmol/L Normal 135-144 [facility] Comment on above: Performed By: #### C DP, MELVIN, BMPX, IPF #### [address] [address] It Support Analyst: Francisco J Fonseca MD Urea nitrogen [Mass/Vol] 20 mg/dL Normal 8-23 [facility] Comment on above: Performed By: #### C DP, MELVIN, BMPX, IPF #### [address] [address] It Support Analyst: Francisco J Fonseca MD CBC with Diffon 01-05-2022 Abs. Basophil 0.04 k/uL Normal 0.00-0.20 [facility] Comment on above: Performed By: #### C DP, MELVIN, BMPX, IPF #### [facility] [employer] [address] [place] [address] It Support Analyst: Francisco J Fonseca MD Abs.Imm.Granulocyte 0.08 k/uL Normal 0.00-0.30 [facility] Comment on above: Performed By: #### C DP, MELVIN, BMPX, IPF #### [address] [address] It Support Analyst: Francisco J Fonseca MD Abs.Neutrophil (Seg) 14.26 k/uL High 1.50-8.10 [facility] Comment on above: Performed By: #### C DP, MELVIN, BMPX, IPF #### [place] [address] It Support Analyst: Francisco J Fonseca MD Basophils/100 WBC (Bld) 0 % Normal 0-2 [facility] Comment on above: Performed By: #### C DP, MELVIN, BMPX, IPF #### [place] [address] It Support Analyst: Francisco J Fonseca MD Eosinophils (Bld) [#/Vol] 0.11 10*3/uL Normal 0.00-0.44 [facility] Comment on above: Performed By: #### C DP, MELVIN, BMPX, IPF #### [place] [address] It Support Analyst: Francisco J Fonseca MD Eosinophils/100 WBC (Bld) 1 % Normal 1-4 [facility] Comment on above: Performed By: #### C DP, MELVIN, BMPX, IPF #### [address] [address] It Support Analyst: Francisco J Fonseca MD Immature granulocytes/100 WBC (Bld) 1 % High 0 [facility] Comment on above: Performed By: #### C DP, MELVIN, BMPX, IPF #### [facility] [employer] [address] [place] [address] It Support Analyst: Francisco J Fonseca MD Lymphocytes (Bld) [#/Vol] 0.96 10*3/uL Low 1.10-3.70 [facility] Comment on above: Performed By: #### C DP, MELVIN, BMPX, IPF #### [facility] [address] [place] [address] It Support Analyst: Francisco J Fonseca MD Lymphocytes/100 WBC (Bld) 6 % Low 24-43 [facility] Comment on above: Performed By: #### C DP, MELVIN, BMPX, IPF #### [facility] [address] [place] [address] It Support Analyst: Francisco J Fonseca MD Monocytes (Bld) [#/Vol] 0.97 10*3/uL Normal 0.10-1.20 [facility] Comment on above: Performed By: #### C DP, MELVIN, BMPX, IPF #### [facility] [address] [place] [address] It Support Analyst: Francisco J Fonseca MD Monocytes/100 WBC (Bld) 6 % Normal 3-12 [facility] Comment on above: Performed By: #### C DP, MELVIN, BMPX, IPF #### [facility] [address] [place] [address] It Support Analyst: Francisco J Fonseca MD Neutrophil (Seg) 87 % High 36-65 [facility] Comment on above: Performed By: #### C DP, MELVIN, BMPX, IPF #### [facility] [address] [place] [address] It Support Analyst: Francisco J Fonseca MD Erythrocyte distribution width (RBC) [Ratio] 18.6 % High 11.8-14.4 [facility] Comment on above: Performed By: #### C DP, MELVIN, BMPX, IPF #### [facility] [employer] [address] [place] [address] It Support Analyst: Francisco J Fonseca MD Hematocrit (Bld) [Volume fraction] 38.9 % Low 40.7-50.3 [facility] Comment on above: Performed By: #### C DP, MELVIN, BMPX, IPF #### [address] [address] It Support Analyst: Francisco J Fonseca MD Hemoglobin (Bld) [Mass/Vol] 13.5 g/dL Normal 13.0-17.0 [facility] Comment on above: Performed By: #### C DP, MELVIN, BMPX, IPF #### [address] [address] It Support Analyst: Francisco J Fonseca MD MCH (RBC) [Entitic mass] 26.8 pg Normal 25.2-33.5 [facility] Comment on above: Performed By: #### C DP, MELVIN, BMPX, IPF #### [place] [address] It Support Analyst: Francisco J Fonseca MD MCHC (RBC) [Mass/Vol] 34.7 g/dL Normal 28.4-34.8 [facility] Comment on above: Performed By: #### C DP, MELVIN, BMPX, IPF #### [address] [address] It Support Analyst: Francisc oJ Fonseca MD MCV (RBC) [Entitic vol] 77.3 fL Low 82.6-102.9 [facility] Comment on above: Performed By: #### C DP, MELVIN, BMPX, IPF #### [address] [address] It Support Analyst: Francisco J Fonseca MD NRBC Automated 0.0 per 100 WBC Normal 0.0 [facility] Comment on above: Performed By: #### C DP, MELVIN, BMPX, IPF #### [place] [address] It Support Analyst: Francisco J Fonseca MD Platelet Count See Reflexed IPF Result Normal 138-453 [facility] Comment on above: Performed By: #### C DP, MELVIN, BMPX, IPF #### [employer] [facility] [place] [address] It Support Analyst: Francisco J Fonseca MD RBC (Bld) [#/Vol] 5.03 10*6/uL Normal 4.21-5.77 [facility] Comment on above: Performed By: #### C DP, MELVIN, BMPX, IPF #### [facility] [place] [address] It Support Analyst: Francisco J Fonseca MD RBC morphology finding Nom (Bld) ANISOCYTOSIS PRESENT Normal [facility] Comment on above: Result Comment: MICR OCYTOSIS PRESENT Performed By: #### C DP, MELVIN, BMPX, IPF #### [facility] [employer] [address] [place] [address] It Support Analyst: Francisco J Fonseca MD WBC (Bld) [#/Vol] 16.4 10*3/uL High 3.5-11.3 [facility] Comment on above: Performed By: #### C DP, MELVIN, BMPX, IPF #### [facility] [place] [address] It Support Analyst: Francisco J Fonseca MD FL UGIon 01-05-2022 FL UGI EXAMINATION: SINGLE CONTRAST UPPER GI SERIES 01/05/2022 HISTORY: ORDERING SYSTEM PROVIDED HISTORY: repair perf ulcer TECHNOLOGIST PROVIDED HISTORY: repair perf ulcer COMPARISON: None. TECHNIQUE: Multiple single contrast images of the esophagus, gastroesophageal junction and stomach were obtained following the oral administration of water soluble contrast. FLUOROSCOPY DOSE AND TYPE OR TIME AND EXPOSURES: DAP [id number] FINDINGS: Contrast was administered through the indwelling [...] Howard Aldridge MD 01/05/22 Final result Normal [facility] Laboratory - Chemistry and C hemistry - challengeon 01-05-2022 Magnesium [Mass/Vol] 1.4 mg/dL Low 1.6 - 2 .6 mg/dL [facility] [employer] GFR/1.73 sq M.predicted MDRD (S/P/Bld) [Vol rate/Area] [facility] [employer] [facility] Comment on above: Average GFR for 70 o r more years old: 75 mL/min/1.73sq m Chronic Kidney Disease: <60 mL/min/1.73sq m Kidney failure: <15 mL/min/1.73sq m eGFR calculated using average adult body mass. Additional eGFR calculator available at: http://www.Share [employer]/multiple_crcl_2012.htm Potassium [Moles/Vol] 3.4 mmol/L Low 3.7 - 5.3 mmol/L [facility] [employer] Urea nitrogen (BldV) [Mass/Vol] 14 mg/dL 8 - 23 mg/dL [facility] [employer] Phosphate [Mass/Vol] 2.4 mg/dL Low 2.5 - 4 .5 mg/dL [facility] Magnesium [Mass/Vol] 1.5 mg/dL Low 1.6 - 2 .6 mg/dL [facility] Anion gap [Moles/Vol] 11 mmol/L 9 - 17 mmol/L [facility] Calcium [Mass/Vol] 9.1 mg/dL 8.6 - 10. 4 mg/dL [facility] Chloride [Moles/Vol] 99 mmol/L 98 - 10 7 mmol/L [facility] [employer] CO2 [Moles/Vol] 25 mmol/L 20 - 31 mmol/L [facility] Creatinine [Mass/Vol] 0.57 mg/dL Low 0.70 - 1.20 mg/dL [facility] [employer] [facility] GFR/1.73 sq M.predicted MDRD (S/P/Bld) [Vol rate/Area] [facility] Comment on above: Average GFR for 70 o r more years old: 75 mL/min/1.73sq m Chronic Kidney Disease: <60 mL/min/1.73sq m Kidney failure: <15 mL/min/1.73sq m eGFR calculated using average adult body mass. Additional eGFR calculator available at: http://www.Share [employer]/multiple_crcl_2012.htm Glucose [Mass/Vol] 129 mg/dL High 70 - 99 mg/dL [facility] Phosphate [Mass/Vol] 2.4 mg/dL Low 2.5 - 4 .5 mg/dL [facility] Potassium [Moles/Vol] 3.5 mmol/L Low 3.7 - 5.3 mmol/L [facility] Sodium [Moles/Vol] 135 mmol/L 135 - 144 mmol/L [facility] Urea nitrogen (BldV) [Mass/Vol] 15 mg/dL 8 - 23 mg/dL [facility] Laboratory - Hematology and Cell countson 01-05-2022 Basophils (Bld) [#/Vol] 0.04 10*3/uL [facility] Basophils/100 WBC (Bld) 0 % 0 - 2 % [facility] Eosinophils/100 WBC (Bld) 1 % 1 - 4 % [facility] Hematocrit (Bld) [Volume fraction] 38.9 % Low 40.7 - 50.3 % [facility] Hemoglobin (Bld) [Mass/Vol] 13.5 g/dL 13.0 - 17.0 g/dL [facility] Immature granulocytes/100 WBC (Bld) 1 % High 0 [facility] Lymphocytes/100 WBC (Bld) 6 % Low 24 - 43 % [facility] MCH (RBC) [Entitic mass] 26.8 pg 25.2 - 33.5 pg [facility] MCHC (RBC) [Mass/Vol] 34.7 g/dL 28.4 - 34.8 g/dL [facility] MCV (RBC) [Entitic vol] 77.3 fL Low 82.6 - 102.9 fL [facility] Monocytes/100 WBC (Bld) 6 % 3 - 12 % [facility] Platelet distribution width (Bld) [Ratio] 18.6 % High 11.8 - 14.4 % [facility] Platelets (Bld) [#/Vol] See Reflexed IPF Result [facility]IER[facility] RBC (Bld) [#/Vol] 5.03 10*6/uL 4.21 - 5.77 m/uL [facility] RBC (Bld) [#/Vol] ANISOCYTOSIS PRESENT [facility] Comment on above: MICROCYTOSIS PRESENT Segmented neutrophils/100 WBC (Bld) 87 % High 36 - 65 % [facility] WBC (Bld) [#/Vol] 16.4 10*3/uL High [facility] ARAU[facility] Magnesiumon 01-05-2022 Magnesium [Mass/Vol] 1.4 mg/dL Low 1.6-2.6 [facility] Comment on above: Performed By: #### C DP, MELVIN, BMPX, IPF #### [employer] [address] [place], [place] [id number] It Support Analyst: Francisco J Fonseca MD Magnesium [Mass/Vol] 1.5 mg/dL Low 1.6-2.6 [facility] Comment on above: Performed By: #### C DP, MELVIN, BMPX, IPF #### [employer] [address] [place], [place] [phone] It Support Analyst: Francisco J Fonseca MD No Panel Informationon 01-05 1. No evidence for contrast leakage from the stomach or duodenum following repair of perforated ulcer. 2. Gastroesophageal reflux. [facility] EXAMINATION: SINGLE CONTRAST UPPER GI SERIES 01/05/2022 HISTORY: ORDERING SYSTEM PROVIDED HISTORY: repair perf ulcer TECHNOLOGIST PROVIDED HISTORY: repair perf ulcer COMPARISON: None. TECHNIQUE: Multiple single contrast images of the esophagus, gastroesophageal junction and stomach were obtained following the oral administration of water soluble contrast. FLUOROSCOPY DOSE AND TYPE OR TIME AND EXPOSURES: DAP [id number] FINDINGS: Contrast was administered through the indwelling NG tube. No extravasation of contrast from the stomach. There is normal filling of stomach and proximal small bowel loops. There was some reflux into the biliary tree. Gastroesophageal reflux is noted. [facility] Howard Aldridge MD - 01/05/2022 EXAMINATION: SINGLE CONTRAST UPPER GI SERIES 01/05/2022 HISTORY: ORDERING SYSTEM PROVIDED HISTORY: repair perf ulcer TECHNOLOGIST PROVIDED HISTORY: repair perf ulcer COMPARISON: None. TECHNIQUE: Multiple single contrast images of the esophagus, gastroesophageal junction and stomach were obtained following the oral administration of water soluble contrast. FLUOROSCOPY DOSE AND TYPE OR TIME AND EXPOSURES: DAP [id number] FINDINGS: Contrast was administered through the indwelling NG tube. No extravasation of contrast from the stomach. There is normal filling of stomach and proximal small bowel loops. There was some reflux into the biliary tree. Gastroesophageal reflux is noted. IMPRESSION: 1. No evidence for contrast leakage from the stomach or duodenum following repair of perforated ulcer. 2. Gastroesophageal reflux. [employer] Work Phone: Radiology Study observation (narrative) [employer] [facility] [facility] [employer] Work Phone: Interpretation and review of laboratory results Abnormal [facility] GFR >60 >60 mL/min [facility] GFR Non- >60 >60 mL/min [facility] Interpretation and review of laboratory results Abnormal [facility] Interpretation and review of laboratory results Abnormal [facility] Interpretation and review of laboratory results Abnormal [facility] Platelet, Fluorescence 250 [facility] Platelet, Immature Fraction 10.5 % High 1.1 - 10.3 % [facility] Absolute Eos # 0.11 [facility] Absolute Immature Granulocyte 0.08 [facility] Absolute Lymph # 0.96 Low [facility] Absolute [place] # 0.97 [facility] Interpretation and review of laboratory results Abnormal [facility] NRBC Automated 0.0 0.0 per 100 WBC [facility] Segs Absolute 14.26 High [facility] Interpretation and review of laboratory results Abnormal [facility] GFR >60 >60 mL/min [facility] GFR Non- >60 >60 mL/min [facility] Interpretation and review of laboratory results Abnormal [facility] [employer] No Panel InformationOrdered By: Howard Aldridge on 01-05-2022 [facility] [employer] Work Phone: PLT, Immature Fract.on 01-05 Platelet, Fluoresc. 250 k/uL Normal 138-453 [facility] Comment on above: Performed By: #### C DP, MELVIN, BMPX, IPF #### [facility] [address] [place] [address] It Support Analyst: Francisco J Fonseca MD PLT, Immature Fract. 10.5 % High 1.1-10.3 [facility] Comment on above: Performed By: #### C DP, MELVIN, BMPX, IPF #### [facility] [employer] [address] [place] [address] It Support Analyst: Francisco J Fonseca MD Phosphorus, Inorg.on 022 Phosphorus, Inorg. 2.4 mg/dL Low 2.5-4.5 [facility] Comment on above: Performed By: #### C DP, MELVIN, BMPX, IPF #### [facility] [address] [place] [address] It Support Analyst: Francisco J Fonseca MD Phosphorus, Inorg. 1.9 mg/dL Low 2.5-4.5 [facility] Comment on above: Performed By: #### C DP, MELVIN, BMPX, IPF #### [facility] [address] [place] [address] It Support Analyst: Francisco J Fonseca MD Basic Metab w/rfx MGon 01-04 Potassium [Moles/Vol] 3.4 mmol/L Low 3.7-5.3 [facility] Comment on above: Performed By: #### C DP, MELVIN, BMPX, IPF #### [facility] [address] [place] [address] It Support Analyst: Francisco J Fonseca MD (cont.) [facility] Comment on above: Result Comment: Aver age GFR for 70 or more years old: 75 mL/min/1.73sq m Chronic Kidney Disease: <60 mL/min/1.73sq m Kidney failure: <15 mL/min/1.73sq m eGFR calculated using average adult body mass. Additional eGFR calculator available at: http://www.Share [employer]/multiple_crcl_2012.htm Performed By: #### C DP, MELVIN, BMPX, IPF #### [facility] [employer] [address] [place] [address] It Support Analyst: Francisco J Fonseca MD Anion gap [Moles/Vol] 12 mmol/L Normal 9-17 [facility] Comment on above: Performed By: #### C DP, MELVIN, BMPX, IPF #### [facility] [employer] [address] [place] [address] It Support Analyst: Francisco J Fonseca MD Calcium [Mass/Vol] 8.1 mg/dL Low 8.6-10.4 [facility] Comment on above: Performed By: #### C DP, MELVIN, BMPX, IPF #### [facility] [employer] [address] [place] [address] It Support Analyst: Francisco J Fonseca MD Chloride [Moles/Vol] 99 mmol/L Normal 98-107 [facility] Comment on above: Performed By: #### C DP, MELVIN, BMPX, IPF #### [facility] [employer] [address] [place] [address] It Support Analyst: Francisco J Fonseca MD CO2 [Moles/Vol] 23 mmol/L Normal 20-31 [facility] Comment on above: Performed By: #### C DP, MELVIN, BMPX, IPF #### [facility] [employer] [address] [place] [address] It Support Analyst: Francisco J Fonseca MD Creatinine [Mass/Vol] 0.61 mg/dL Low 0.70-1.20 [facility] Comment on above: Performed By: #### C DP, MELVIN, BMPX, IPF #### [facility] [employer] [address] [place] [address] It Support Analyst: Francisco J Fonseca MD GFR, Amer >60 Normal >60 [facility] Comment on above: Performed By: #### C DP, MELVIN, BMPX, IPF #### [facility] [employer] [address] [place] [address] It Support Analyst: Francisco J Fonseca MD GFR,non Amer >60 Normal >60 [facility] Comment on above: Performed By: #### C DP, MELVIN, BMPX, IPF #### [address] [address] It Support Analyst: Franicsco J Fonseca MD Glucose [Mass/Vol] 125 mg/dL High 70-99 [facility] Comment on above: Performed By: #### C DP, MELVIN, BMPX, IPF #### [address] [address] It Support Analyst: Francisco J Fonesca MD Sodium [Moles/Vol] 134 mmol/L Low 135-144 [facility] Comment on above: Performed By: #### C DP, MELVIN, BMPX, IPF #### [facility] [employer] [address] [place] [address] It Support Analyst: Francisco J Fonseca MD Urea nitrogen [Mass/Vol] 19 mg/dL Normal 8-23 [facility] Comment on above: Performed By: #### C DP, MELVIN, BMPX, IPF #### [facility] [employer] [address] [place] [phone] It Support Analyst: Francisco J Fonseca MD (cont.) Normal [facility] Comment on above: Result Comment: Aver age GFR for 70 or more years old: 75 mL/min/1.73sq m Chronic Kidney Disease: <60 mL/min/1.73sq m Kidney failure: <15 mL/min/1.73sq m eGFR calculated using average adult body mass. Additional eGFR calculator available at: http://www.Share [employer]/multiple_crcl_2012.htm Performed By: #### C DP, MELVIN, BMPX, IPF #### [facility] [employer] [address] [place] [address] It Support Analyst: Francisco J Fonseca MD Anion gap [Moles/Vol] 13 mmol/L Normal 9-17 [facility] Comment on above: Performed By: #### C DP, MELVIN, BMPX, IPF #### [address] [address] It Support Analyst: Francisco J Fonseca MD Calcium [Mass/Vol] 8.4 mg/dL Low 8.6-10.4 [facility] Comment on above: Performed By: #### C DP, MELVIN, BMPX, IPF #### [facility] [employer] [address] [place] [phone] It Support Analyst: Francisco J Fonseca MD Chloride [Moles/Vol] 101 mmol/L Normal 98-107 [facility] Comment on above: Performed By: #### C DP, MELVIN, BMPX, IPF #### [facility] [employer] [address] [place] [address] It Support Analyst: Francisco J Fonseca MD CO2 [Moles/Vol] 23 mmol/L Normal 20-31 [facility] Comment on above: Performed By: #### C DP, MELVIN, BMPX, IPF #### [facility] [employer] [address] [place] [address]38 It Support Analyst: Francisco J Fonseca MD Creatinine [Mass/Vol] 0.73 mg/dL Normal 0.70-1.20 [facility] Comment on above: Performed By: #### C DP, MELVIN, BMPX, IPF #### [facility] [address] [place] [phone] It Support Analyst: Francisco J Fonseca MD GFR, Amer >60 Normal >60 [facility] Comment on above: Performed By: #### C DP, MELVIN, BMPX, IPF #### [facility] [address] [place] [address] It Support Analyst: Francisco J Fonseca MD GFR,non Amer >60 Normal >60 [facility] Comment on above: Performed By: #### C DP, MELVIN, BMPX, IPF #### [facility] [address] [place] [address] It Support Analyst: Francisco J Fonseca MD Glucose [Mass/Vol] 124 mg/dL High 70-99 [facility] Comment on above: Performed By: #### C DP, MELVIN, BMPX, IPF #### [facility] [employer] [address] [place] [phone] It Support Analyst: Francisco J Fonseca MD Potassium [Moles/Vol] 3.9 mmol/L Normal 3.7-5.3 [facility] Comment on above: Performed By: #### C DP, MELVIN, BMPX, IPF #### [facility] [employer] [address] [place] [address] It Support Analyst: Francisco J Fonseca MD Sodium [Moles/Vol] 137 mmol/L Normal 135-144 [facility] Comment on above: Performed By: #### C DP, MELVIN, BMPX, IPF #### [facility] [address] [place] [address] It Support Analyst: Francisco J Fonseca MD Urea nitrogen [Mass/Vol] 24 mg/dL High 8-23 [facility] Comment on above: Performed By: #### C DP, MELVIN, BMPX, IPF #### [facility] [address] [place] [address] It Support Analyst: Francisco J Fonseca MD (cont.) Normal [facility] Comment on above: Result Comment: Aver age GFR for 70 or more years old: 75 mL/min/1.73sq m Chronic Kidney Disease: <60 mL/min/1.73sq m Kidney failure: <15 mL/min/1.73sq m eGFR calculated using average adult body mass. Additional eGFR calculator available at: http://www.CHIC.TV.Shelfari/multiple_crcl_2011.htm Performed By: #### B MPX, MELVIN #### [facility] [employer] [address] [place] [address] It Support Analyst: Francisco J Fonseca MD Anion gap [Moles/Vol] 12 mmol/L Normal 9-17 [facility] Comment on above: Performed By: #### B MPX, MELVIN #### [address] [address] It Support Analyst: Francisco J Fonseca MD Calcium [Mass/Vol] 8.5 mg/dL Low 8.6-10.4 [facility] Comment on above: Performed By: #### B MPX, MELVIN #### [facility] [employer] [address] [place] [address] It Support Analyst: Francisco J Fonseca MD Chloride [Moles/Vol] 101 mmol/L Normal 98-107 [facility] Comment on above: Performed By: #### B MPX, MELVIN #### [facility] [employer] [address] [place] [address]642 It Support Analyst: Francisco J Fonseca MD CO2 [Moles/Vol] 23 mmol/L Normal 20-31 [facility] Comment on above: Performed By: #### B MPX, MELVIN #### [facility] [employer] [address] [place] [address]38 It Support Analyst: Francisco J Fonseca MD Creatinine [Mass/Vol] 0.82 mg/dL Normal 0.70-1.20 [facility] Comment on above: Performed By: #### B MPX, MELVIN #### [facility] [address] [place] [address] It Support Analyst: Francisco J Fonseca MD GFR, Amer >60 Normal >60 [facility] Comment on above: Performed By: #### B MPX, MELVIN #### [facility] [address] [place] [address]17 It Support Analyst: Francisco J Fonseca MD GFR,non Amer >60 Normal >60 [facility] Comment on above: Performed By: #### B MPX, MELVIN #### [facility] [address] [place] [address] It Support Analyst: Francisco J Fonseca MD Glucose [Mass/Vol] 100 mg/dL High 70-99 [facility] Comment on above: Performed By: #### B MPX, MELVIN #### [facility] [address] [place] [address] 80038 It Support Analyst: Francisco J Fonseca MD Potassium [Moles/Vol] 3.9 mmol/L Normal 3.7-5.3 [facility] Comment on above: Performed By: #### B MPX, MELVIN #### [facility] [address] [place] [address] 38576 It Support Analyst: Francisco J Fonseca MD Sodium [Moles/Vol] 136 mmol/L Normal 135-144 [facility] Comment on above: Performed By: #### B MPX, MELVIN #### [facility] [address] [place] [address] 96061 It Support Analyst: Francisco J Fonseca MD Urea nitrogen [Mass/Vol] 26 mg/dL High 8-23 [facility] Comment on above: Performed By: #### B MPX, MELVIN #### [facility] [address] [place] [address]442 It Support Analyst: Francisco J Fonseca MD (cont.) Normal [facility] Comment on above: Result Comment: Aver age GFR for 70 or more years old: 75 mL/min/1.73sq m Chronic Kidney Disease: <60 mL/min/1.73sq m Kidney failure: <15 mL/min/1.73sq m eGFR calculated using average adult body mass. Additional eGFR calculator available at: http://www.Share Practice/multiple_crcl_2012.htm Performed By: #### C DP #### [address] [address] It Support Analyst: Francisco J Fonseca MD Anion gap [Moles/Vol] 11 mmol/L Normal 9-17 [facility] Comment on above: Performed By: #### C DP #### [address] [address] It Support Analyst: Francisco J Fonseca MD Calcium [Mass/Vol] 8.3 mg/dL Low 8.6-10.4 [facility] Comment on above: Performed By: #### C DP #### [address] [address] It Support Analyst: Francisco J Fonseca MD Chloride [Moles/Vol] 104 mmol/L Normal 98-107 [facility] Comment on above: Performed By: #### C DP #### [address] [address] It Support Analyst: Francisco J Fonseca MD CO2 [Moles/Vol] 21 mmol/L Normal 20-31 [facility] Comment on above: Performed By: #### C DP #### [address] [address] It Support Analyst: Francisco J Fonseca MD Creatinine [Mass/Vol] 0.83 mg/dL Normal 0.70-1.20 [facility] Comment on above: Performed By: #### C DP #### [address] [address] It Support Analyst: Francisco J Fonseca MD GFR, Amer >60 Normal >60 [facility] Comment on above: Performed By: #### C DP #### [address] [address] It Support Analyst: Francisco J Fonseca MD GFR,non Amer >60 Normal >60 [facility] Comment on above: Performed By: #### C DP #### [address] [address] It Support Analyst: Francisco J Fonseca MD Glucose [Mass/Vol] 71 mg/dL Normal 70-99 [facility] Comment on above: Performed By: #### C DP #### [address] [address] It Support Analyst: Francisco J Fonseca MD Potassium [Moles/Vol] 4.5 mmol/L Normal 3.7-5.3 [facility] Comment on above: Result Comment: SPEC IMEN SLIGHTLY HEMOLYZED, RESULTS MAY BE ADVERSELY AFFECTED. Performed By: #### C DP #### [address] [address] It Support Analyst: Francisco J Fonseca MD Sodium [Moles/Vol] 136 mmol/L Normal 135-144 [facility] Comment on above: Performed By: #### C DP #### [address] [address] It Support Analyst: Francisco J Fonseca MD Urea nitrogen [Mass/Vol] 29 mg/dL High 8-23 [facility] Comment on above: Performed By: #### C DP #### [address] [address] It Support Analyst: Francisco J Fonseca MD CBC with Diffon 01-04-2022 Abs. Basophil 0.04 k/uL Normal 0.00-0.20 [facility] Comment on above: Performed By: #### C DP #### [address] [address] It Support Analyst: Francisco J Fonseca MD Abs. Eosinophil <0.03 Normal 0.00-0.44 [facility] Comment on above: Performed By: #### C DP #### [address] [address] It Support Analyst: Francisco J Fonseca MD Abs.Imm.Granulocyte 0.20 k/uL Normal 0.00-0.30 [facility] Comment on above: Performed By: #### C DP #### [address] [address] It Support Analyst: Francisco J Fonseca MD Abs.Neutrophil (Seg) 18.94 k/uL High 1.50-8.10 [facility] Comment on above: Performed By: #### C DP #### [address] [address] It Support Analyst: Francisco J Fonseca MD Basophils/100 WBC (Bld) 0 % Normal 0-2 [facility] Comment on above: Performed By: #### C DP #### [address] [address] It Support Analyst: Francisco J Fonseca MD Eosinophils/100 WBC (Bld) 0 % Low 1-4 [facility] Comment on above: Performed By: #### C DP #### [address] [address] It Support Analyst: Francisco J Fonseca MD Erythrocyte distribution width (RBC) [Ratio] 19.0 % High 11.8-14.4 [facility] Comment on above: Performed By: #### C DP #### [address] [address] It Support Analyst: Francisco J Fonseca MD Hematocrit (Bld) [Volume fraction] 35.1 % Low 40.7-50.3 [facility] Comment on above: Performed By: #### C DP #### [place] [address] It Support Analyst: Francisco J Fonseca MD Hemoglobin (Bld) [Mass/Vol] 12.0 g/dL Low 13.0-17.0 [facility] Comment on above: Performed By: #### C DP #### [place] [address] It Support Analyst: Francisco J Fonseca MD Immature granulocytes/100 WBC (Bld) 1 % High 0 [facility] Comment on above: Performed By: #### C DP #### [place] [address] It Support Analyst: Francisco J Fonseca MD Lymphocytes (Bld) [#/Vol] 0.89 10*3/uL Low 1.10-3.70 [facility] Comment on above: Performed By: #### C DP #### [place] [address] It Support Analyst: Francisco J Fonseca MD Lymphocytes/100 WBC (Bld) 4 % Low 24-43 [facility] Comment on above: Performed By: #### C DP #### [place] [address] It Support Analyst: Francisco J Fonseca MD MCH (RBC) [Entitic mass] 27.6 pg Normal 25.2-33.5 [facility] Comment on above: Performed By: #### C DP #### [place] [address] It Support Analyst: Francisco J Fonseca MD MCHC (RBC) [Mass/Vol] 34.2 g/dL Normal 28.4-34.8 [facility] Comment on above: Performed By: #### C DP #### [address] [address] It Support Analyst: Francisco J Fonseca MD MCV (RBC) [Entitic vol] 80.7 fL Low 82.6-102.9 [facility] Comment on above: Performed By: #### C DP #### [address] [address] It Support Analyst: Francisco J Fonseca MD Monocytes (Bld) [#/Vol] 1.33 10*3/uL High 0.10-1.20 [facility] Comment on above: Performed By: #### C DP #### [address] [address] It Support Analyst: Francisco J Fonseca MD Monocytes/100 WBC (Bld) 6 % Normal 3-12 [facility] Comment on above: Performed By: #### C DP #### [address] [address] It Support Analyst: Francisco J Fonseca MD Neutrophil (Seg) 89 % High 36-65 [facility] Comment on above: Performed By: #### C DP #### [address] [address] It Support Analyst: Francisco J Fonseca MD NRBC Automated 0.0 per 100 WBC Normal 0.0 [facility] Comment on above: Performed By: #### C DP #### [address] [address] It Support Analyst: Francisco J Fonseca MD Platelet mean volume (Bld) [Entitic vol] 12.3 fL Normal 8.1-13.5 [facility] Comment on above: Performed By: #### C DP #### [address] [address] It Support Analyst: Francisco J Fonseca MD Platelets (Bld) [#/Vol] 245 10*3/uL Normal 138-453 [facility] Comment on above: Performed By: #### C DP #### [address] [address] It Support Analyst: Francisco J Fonseca MD RBC (Bld) [#/Vol] 4.35 10*6/uL Normal 4.21-5.77 [facility] Comment on above: Performed By: #### C DP #### [address] [address] It Support Analyst: Francisco J Fonseca MD RBC morphology finding Nom (Bld) ANISOCYTOSIS PRESENT Normal [facility] Comment on above: Result Comment: MICR OCYTOSIS PRESENT Performed By: #### C DP #### [address] [address] It Support Analyst: Francisco J Fonseca MD WBC (Bld) [#/Vol] 21.4 10*3/uL High 3.5-11.3 [facility] Comment on above: Performed By: #### C DP #### [address] [address] It Support Analyst: Francisco J Fonseca MD Cult,Urineon 01-04-2022 Cult,Urine Specimen Description .INDWELLING CATH URINE Culture NO GROWTH Report Status FINAL 01/04/2022 Normal [facility] Comment on above: Performed By: #### C DP, MELVIN, BMPX, IPF #### [address] [address] It Support Analyst: Francisco J Fonseca MD Laboratory - Chemistry and C hemistry - challengeon 01-04-2022 Anion gap [Moles/Vol] 15 mmol/L 9 - 17 mmol/L [facility] Calcium [Mass/Vol] 8.2 mg/dL Low 8.6 - 10. 4 mg/dL [facility] Chloride [Moles/Vol] 98 mmol/L 98 - 10 7 mmol/L [facility] CO2 [Moles/Vol] 23 mmol/L 20 - 31 mmol/L [facility] Creatinine [Mass/Vol] 0.66 mg/dL Low 0.70 - 1.20 mg/dL [facility] GFR/1.73 sq M.predicted MDRD (S/P/Bld) [Vol rate/Area] [facility] [employer] Comment on above: Average GFR for 70 o r more years old: 75 mL/min/1.73sq m Chronic Kidney Disease: <60 mL/min/1.73sq m Kidney failure: <15 mL/min/1.73sq m eGFR calculated using average adult body mass. Additional eGFR calculator available at: http://www.Share Practice/multiple_crcl_2011.htm Glucose [Mass/Vol] 90 mg/dL 70 - 99 mg/dL [facility] Phosphate [Mass/Vol] 1.9 mg/dL Low 2.5 - 4 .5 mg/dL [facility] Potassium [Moles/Vol] 3.7 mmol/L 3.7 - 5.3 mmol/L [facility] Sodium [Moles/Vol] 136 mmol/L 135 - 144 mmol/L [facility] [employer] Urea nitrogen (BldV) [Mass/Vol] 20 mg/dL 8 - 23 mg/dL [facility] Magnesium [Mass/Vol] 1.5 mg/dL Low 1.6 - 2 .6 mg/dL [facility] Anion gap [Moles/Vol] 12 mmol/L 9 - 17 mmol/L [facility] [employer] Calcium [Mass/Vol] 8.1 mg/dL Low 8.6 - 10. 4 mg/dL [facility] Chloride [Moles/Vol] 99 mmol/L 98 - 10 7 mmol/L [facility] CO2 [Moles/Vol] 23 mmol/L 20 - 31 mmol/L [facility] Creatinine [Mass/Vol] 0.61 mg/dL Low 0.70 - 1.20 mg/dL [facility] GFR/1.73 sq M.predicted MDRD (S/P/Bld) [Vol rate/Area] [facility] Comment on above: Average GFR for 70 o r more years old: 75 mL/min/1.73sq m Chronic Kidney Disease: <60 mL/min/1.73sq m Kidney failure: <15 mL/min/1.73sq m eGFR calculated using average adult body mass. Additional eGFR calculator available at: http://www.Share Practice/multiple_crcl_2012.htm Glucose [Mass/Vol] 125 mg/dL High 70 - 99 mg/dL [facility] Potassium [Moles/Vol] 3.4 mmol/L Low 3.7 - 5.3 mmol/L [facility] Sodium [Moles/Vol] 134 mmol/L Low 135 - 144 mmol/L [facility] Urea nitrogen (BldV) [Mass/Vol] 19 mg/dL 8 - 23 mg/dL [facility] Phosphate [Mass/Vol] 2.2 mg/dL Low 2.5 - 4 .5 mg/dL [facility] Anion gap [Moles/Vol] 13 mmol/L 9 - 17 mmol/L [facility] Calcium [Mass/Vol] 8.4 mg/dL Low 8.6 - 10. 4 mg/dL [facility] Chloride [Moles/Vol] 101 mmol/L 98 - 10 7 mmol/L [facility] CO2 [Moles/Vol] 23 mmol/L 20 - 31 mmol/L [facility] Creatinine [Mass/Vol] 0.73 mg/dL 0.70 - 1.20 mg/dL [facility] GFR/1.73 sq M.predicted MDRD (S/P/Bld) [Vol rate/Area] [facility] Comment on above: Average GFR for 70 o r more years old: 75 mL/min/1.73sq m Chronic Kidney Disease: <60 mL/min/1.73sq m Kidney failure: <15 mL/min/1.73sq m eGFR calculated using average adult body mass. Additional eGFR calculator available at: http://www.Share Practice/multiple_crcl_2011.htm Glucose [Mass/Vol] 124 mg/dL High 70 - 99 mg/dL [facility] Phosphate [Mass/Vol] 2.5 mg/dL 2.5 - 4 .5 mg/dL [facility] Potassium [Moles/Vol] 3.9 mmol/L 3.7 - 5.3 mmol/L [facility] Sodium [Moles/Vol] 137 mmol/L 135 - 144 mmol/L [facility] Urea nitrogen (BldV) [Mass/Vol] 24 mg/dL High 8 - 23 mg/dL [facility] Glucose [Mass/Vol] 108 mg/dL 75 - 110 mg/dL [facility] Anion gap [Moles/Vol] 12 mmol/L 9 - 17 mmol/L [facility] Calcium [Mass/Vol] 8.5 mg/dL Low 8.6 - 10. 4 mg/dL [facility] Chloride [Moles/Vol] 101 mmol/L 98 - 10 7 mmol/L [facility] CO2 [Moles/Vol] 23 mmol/L 20 - 31 mmol/L [facility] Creatinine [Mass/Vol] 0.82 mg/dL 0.70 - 1.20 mg/dL [facility] GFR/1.73 sq M.predicted MDRD (S/P/Bld) [Vol rate/Area] [facility] Comment on above: Average GFR for 70 o r more years old: 75 mL/min/1.73sq m Chronic Kidney Disease: <60 mL/min/1.73sq m Kidney failure: <15 mL/min/1.73sq m eGFR calculated using average adult body mass. Additional eGFR calculator available at: http://www.CHIC.TV.Shelfari/multiple_crcl_2012.htm Glucose [Mass/Vol] 100 mg/dL High 70 - 99 mg/dL [facility] Phosphate [Mass/Vol] 2.7 mg/dL 2.5 - 4 .5 mg/dL [facility] Potassium [Moles/Vol] 3.9 mmol/L 3.7 - 5.3 mmol/L [facility] Sodium [Moles/Vol] 136 mmol/L 135 - 144 mmol/L [facility] Urea nitrogen (BldV) [Mass/Vol] 26 mg/dL High 8 - 23 mg/dL [facility] Glucose [Mass/Vol] 81 mg/dL 75 - 110 mg/dL [facility] Anion gap [Moles/Vol] 11 mmol/L 9 - 17 mmol/L [facility] Calcium [Mass/Vol] 8.3 mg/dL Low 8.6 - 10. 4 mg/dL [facility] Chloride [Moles/Vol] 104 mmol/L 98 - 10 7 mmol/L [facility] CO2 [Moles/Vol] 21 mmol/L 20 - 31 mmol/L [facility] Creatinine [Mass/Vol] 0.83 mg/dL 0.70 - 1.20 mg/dL [facility] GFR/1.73 sq M.predicted MDRD (S/P/Bld) [Vol rate/Area] [facility] Comment on above: Average GFR for 70 o r more years old: 75 mL/min/1.73sq m Chronic Kidney Disease: <60 mL/min/1.73sq m Kidney failure: <15 mL/min/1.73sq m eGFR calculated using average adult body mass. Additional eGFR calculator available at: http://www.Share Practice/multiple_crcl_2012.htm Glucose [Mass/Vol] 71 mg/dL 70 - 99 mg/dL [facility] Phosphate [Mass/Vol] 3.2 mg/dL 2.5 - 4 .5 mg/dL [facility] Potassium [Moles/Vol] 4.5 mmol/L 3.7 - 5.3 mmol/L [facility] Comment on above: SPECIMEN SLIGHTLY HE MOLYZED, RESULTS MAY BE ADVERSELY AFFECTED. Sodium [Moles/Vol] 136 mmol/L 135 - 144 mmol/L [facility] Urea nitrogen (BldV) [Mass/Vol] 29 mg/dL High 8 - 23 mg/dL [facility] Laboratory - Hematology and Cell countson 01-04-2022 Basophils (Bld) [#/Vol] 0.04 10*3/uL [facility] Basophils/100 WBC (Bld) 0 % 0 - 2 % [facility] Eosinophils/100 WBC (Bld) 0 % Low 1 - 4 % [facility] Hematocrit (Bld) [Volume fraction] 35.1 % Low 40.7 - 50.3 % [facility] Hemoglobin (Bld) [Mass/Vol] 12.0 g/dL Low 13.0 - 17.0 g/dL [facility] Immature granulocytes/100 WBC (Bld) 1 % High 0 [facility] Lymphocytes/100 WBC (Bld) 4 % Low 24 - 43 % [facility] MCH (RBC) [Entitic mass] 27.6 pg 25.2 - 33.5 pg [facility] MCHC (RBC) [Mass/Vol] 34.2 g/dL 28.4 - 34.8 g/dL [facility] MCV (RBC) [Entitic vol] 80.7 fL Low 82.6 - 102.9 fL [facility] Monocytes/100 WBC (Bld) 6 % 3 - 12 % [facility] Platelet distribution width (Bld) [Ratio] 19.0 % High 11.8 - 14.4 % [facility] Platelet mean volume (Bld) [Entitic vol] 12.3 fL 8.1 - 13.5 fL [facility] Platelets (Bld) [#/Vol] 245 10*3/uL [facility] RBC (Bld) [#/Vol] 4.35 10*6/uL 4.21 - 5.77 m/uL [facility] RBC (Bld) [#/Vol] ANISOCYTOSIS PRESENT [facility] Comment on above: MICROCYTOSIS PRESENT Segmented neutrophils/100 WBC (Bld) 89 % High 36 - 65 % [facility] WBC (Bld) [#/Vol] 21.4 10*3/uL High [facility] Laboratory - Microbiology an d Antimicrobial susceptibilityon 01-04-2022 Bacteria identified Cx Nom (U) NO GROWTH [facility] Magnesiumon 01-04-2022 Magnesium [Mass/Vol] 1.5 mg/dL Low 1.6-2.6 [facility] Comment on above: Performed By: #### C DP, MELVIN, BMPX, IPF #### [facility] [address] [place] [address] It Support Analyst: Francisco J Fonseca MD No Panel Informationon 01-04 GFR >60 >60 mL/min [facility] Low [facility] Absolute [place] # 1.33 High [facility] Interpretation and review of laboratory results Abnormal [facility] NRBC Automated 0.0 0.0 per 100 WBC [facility] Segs Absolute 18.94 High [facility] Specimen Description .INDWELLING CATH URINE [facility] Phosphorus, Inorg.on 022 Phosphorus, Inorg. 2.2 mg/dL Low 2.5-4.5 [facility] Comment on above: Performed By: #### C DP, MELVIN, BMPX, IPF #### [facility] [place] [address] It Support Analyst: Francisco J Fonseca MD Phosphorus, Inorg. 2.5 mg/dL Normal 2.5-4.5 [facility] Comment on above: Performed By: #### C DP, MELVIN, BMPX, IPF #### [facility] [address] [place] [address] It Support Analyst: Francisco J Fonseca MD Phosphorus, Inorg. 2.7 mg/dL Normal 2.5-4.5 [facility] Comment on above: Performed By: #### B MPX, MELVIN #### [facility] [employer] [address] [place] [phone] It Support Analyst: Francisco J Fonseca MD Phosphorus, Inorg. 3.2 mg/dL Normal 2.5-4.5 [facility] Comment on above: Performed By: #### C DP #### [address] [address] It Support Analyst: Francisco J Fonseca MD Basic Metab w/rfx MGon 01-03 (cont.) Normal [facility] Comment on above: Result Comment: Aver age GFR for 70 or more years old: 75 mL/min/1.73sq m Chronic Kidney Disease: <60 mL/min/1.73sq m Kidney failure: <15 mL/min/1.73sq m eGFR calculated using average adult body mass. Additional eGFR calculator available at: http://www.CHIC.TV.com/multiple_crcl_2012.htm Performed By: #### C DP, MELVIN, BMPX, IPF #### [facility] [employer] [address] [place] [id number] It Support Analyst: Francisco J Fonseca MD Anion gap [Moles/Vol] 12 mmol/L Normal 9-17 [facility] Comment on above: Performed By: #### C DP, MELVIN, BMPX, IPF #### [facility] [employer] [address] [place] [address] It Support Analyst: Francisco J Fonseca MD Calcium [Mass/Vol] 8.3 mg/dL Low 8.6-10.4 [facility] Comment on above: Performed By: #### C DP, MELVIN, BMPX, IPF #### [facility] [employer] [address] [place] [address] It Support Analyst: Francisco J Fonseca MD Chloride [Moles/Vol] 102 mmol/L Normal 98-107 [facility] Comment on above: Performed By: #### C DP, MELVIN, BMPX, IPF #### [facility] [employer] [address] [place] [address] It Support Analyst: Francisco J Fonseca MD CO2 [Moles/Vol] 21 mmol/L Normal 20-31 [facility] Comment on above: Performed By: #### C DP, MELVIN, BMPX, IPF #### [facility] [employer] [address] [place] [address] It Support Analyst: Francisco J Fonseca MD Creatinine [Mass/Vol] 0.88 mg/dL Normal 0.70-1.20 [facility] Comment on above: Performed By: #### C DP, MELVIN, BMPX, IPF #### [facility] [employer] [address] [place] [address] It Support Analyst: Francisco J Fonseca MD GFR, Amer >60 Normal >60 [facility] Comment on above: Performed By: #### C DP, MELVIN, BMPX, IPF #### [facility] [employer] [address] [place] [address] It Support Analyst: Francisco J Fonseca MD GFR,non Amer >60 Normal >60 [facility] Comment on above: Performed By: #### C DP, MELVIN, BMPX, IPF #### [facility] [employer] [address] [place] [address] [place] [address] It Support Analyst: Francisco J Fonseca MD Glucose [Mass/Vol] 74 mg/dL Normal 70-99 [facility] Comment on above: Performed By: #### C DP, MELVIN, BMPX, IPF #### [address] [address] It Support Analyst: Francisco J Fonseca MD Potassium [Moles/Vol] 4.2 mmol/L Normal 3.7-5.3 [facility] Comment on above: Performed By: #### C DP, MELVIN, BMPX, IPF #### [address] [address] It Support Analyst: Francisco J Fonseca MD Sodium [Moles/Vol] 135 mmol/L Normal 135-144 [facility] Comment on above: Performed By: #### C DP, MELVIN, BMPX, IPF #### [address] [address] It Support Analyst: Francisco J Fonseca MD Urea nitrogen [Mass/Vol] 29 mg/dL High 8-23 [facility] Comment on above: Performed By: #### C DP, MELVIN, BMPX, IPF #### [address] [address] It Support Analyst: Francisco J Fonseca MD (cont.) Normal [facility] Comment on above: Result Comment: Aver age GFR for 70 or more years old: 75 mL/min/1.73sq m Chronic Kidney Disease: <60 mL/min/1.73sq m Kidney failure: <15 mL/min/1.73sq m eGFR calculated using average adult body mass. Additional eGFR calculator available at: http://www.CHIC.TV.Shelfari/multiple_crcl_2012.htm Performed By: #### C DP #### [facility] [employer] [address] [place] [address] It Support Analyst: Francisco J Fonseca MD Anion gap [Moles/Vol] 12 mmol/L Normal 9-17 [facility] Comment on above: Performed By: #### C DP #### [address] [address] It Support Analyst: Francisco J Fonseca MD Calcium [Mass/Vol] 8.4 mg/dL Low 8.6-10.4 [facility] Comment on above: Performed By: #### C DP #### [address] [address] It Support Analyst: Francisco J Fonseca MD Chloride [Moles/Vol] 103 mmol/L Normal 98-107 [facility] Comment on above: Performed By: #### C DP #### [address] [address] It Support Analyst: Francisco J Fonseca MD CO2 [Moles/Vol] 21 mmol/L Normal 20-31 [facility] Comment on above: Performed By: #### C DP #### [address] [address] It Support Analyst: Francisco J Fonseca MD Creatinine [Mass/Vol] 0.93 mg/dL Normal 0.70-1.20 [facility] Comment on above: Performed By: #### C DP #### [address] [address] It Support Analyst: Francisco J Fonseca MD GFR, Amer >60 Normal >60 [facility] Comment on above: Performed By: #### C DP #### [address] [address] It Support Analyst: Francisco J Fonseca MD GFR,non Amer >60 Normal >60 [facility] Comment on above: Performed By: #### C DP #### [address] [address] It Support Analyst: Francisco J Fonseca MD Glucose [Mass/Vol] 155 mg/dL High 70-99 [facility] Comment on above: Performed By: #### C DP #### [address] [address] It Support Analyst: Francisco J Fonseca MD Potassium [Moles/Vol] 3.9 mmol/L Normal 3.7-5.3 [facility] Comment on above: Performed By: #### C DP #### [address] [address] It Support Analyst: Francisco J Fonseca MD Sodium [Moles/Vol] 136 mmol/L Normal 135-144 [facility] Comment on above: Performed By: #### C DP #### [address] [address] It Support Analyst: Francisco J Fonseca MD Urea nitrogen [Mass/Vol] 28 mg/dL High 8-23 [facility] Comment on above: Performed By: #### C DP #### [address] [address] It Support Analyst: Francisco J Fonseca MD (cont.) [facility] Comment on above: Result Comment: Aver age GFR for 70 or more years old: 75 mL/min/1.73sq m Chronic Kidney Disease: <60 mL/min/1.73sq m Kidney failure: <15 mL/min/1.73sq m eGFR calculated using average adult body mass. Additional eGFR calculator available at: http://www.CHIC.TV.com/multiple_crcl_2012.htm Performed By: #### C DP, MELVIN, BMPX, IPF #### [facility] [employer] [address] [place] [address] It Support Analyst: Francisco J Fonseca MD Anion gap [Moles/Vol] 11 mmol/L Normal 9-17 [facility] Comment on above: Performed By: #### C DP, MELVIN, BMPX, IPF #### [facility] [address] [place] [address] It Support Analyst: Francisco J Fonseca MD Calcium [Mass/Vol] 8.4 mg/dL Low 8.6-10.4 [facility] Comment on above: Performed By: #### C DP, MELVIN, BMPX, IPF #### [facility] [address] [place] [address] It Support Analyst: Francisco J Fonseca MD Chloride [Moles/Vol] 103 mmol/L Normal 98-107 [facility] Comment on above: Performed By: #### C DP, MELVIN, BMPX, IPF #### [facility] [employer] [address] [place] [address] It Support Analyst: Francisco J Fonseca MD CO2 [Moles/Vol] 24 mmol/L Normal 20-31 [facility] Comment on above: Performed By: #### C DP, MELVIN, BMPX, IPF #### [facility] [employer] [address] [place] [address] It Support Analyst: Francisco J Fonseca MD Creatinine [Mass/Vol] 0.92 mg/dL Normal 0.70-1.20 [facility] Comment on above: Performed By: #### C DP, MELVIN, BMPX, IPF #### [facility] [employer] [address] [place] [address] It Support Analyst: Francisco J Fonseca MD GFR, Amer >60 Normal >60 [facility] Comment on above: Performed By: #### C DP, MELVIN, BMPX, IPF #### [facility] [employer] [address] [place] [address] It Support Analyst: Francisco J Fonseca MD GFR,non Amer >60 Normal >60 [facility] Comment on above: Performed By: #### C DP, MELVIN, BMPX, IPF #### [facility] [employer] [address] [place] [address] It Support Analyst: Francisco J Fonseca MD Glucose [Mass/Vol] 226 mg/dL High 70-99 [facility] Comment on above: Performed By: #### C DP, MELVIN, BMPX, IPF #### [address] [address] It Support Analyst: Francisco J Fonseca MD Potassium [Moles/Vol] 5.0 mmol/L Normal 3.7-5.3 [facility] Comment on above: Performed By: #### C DP, MELVIN, BMPX, IPF #### [address] [address] It Support Analyst: Francisco J Fonseca MD Sodium [Moles/Vol] 138 mmol/L Normal 135-144 [facility] Comment on above: Performed By: #### C DP, MELVIN, BMPX, IPF #### [address] [address] It Support Analyst: Francisco J Fonseca MD Urea nitrogen [Mass/Vol] 26 mg/dL High 8-23 [facility] Comment on above: Performed By: #### C DP, MELVIN, BMPX, IPF #### [address] [address] It Support Analyst: Francisco J Fonseca MD (cont.) [facility] Comment on above: Result Comment: Aver age GFR for 70 or more years old: 75 mL/min/1.73sq m Chronic Kidney Disease: <60 mL/min/1.73sq m Kidney failure: <15 mL/min/1.73sq m eGFR calculated using average adult body mass. Additional eGFR calculator available at: http://www.CHIC.TV.com/multiple_crcl_2012.htm Performed By: #### C DP, MELVIN, BMPX, IPF #### [facility] [employer] [address] [place] [address] It Support Analyst: Francisco J Fonseca MD Anion gap [Moles/Vol] 13 mmol/L Normal 9-17 [facility] Comment on above: Performed By: #### C DP, MELVIN, BMPX, IPF #### [address] [address] It Support Analyst: Francisco J Fonseca MD Calcium [Mass/Vol] 8.4 mg/dL Low 8.6-10.4 [facility] Comment on above: Performed By: #### C DP, MELVIN, BMPX, IPF #### [facility] [employer] [address] [place] [address] It Support Analyst: Francisco J Fonseca MD Chloride [Moles/Vol] 104 mmol/L Normal 98-107 [facility] Comment on above: Performed By: #### C DP, MELVIN, BMPX, IPF #### [address] [address] It Support Analyst: Francisco J Fonseca MD CO2 [Moles/Vol] 21 mmol/L Normal 20-31 [facility] Comment on above: Performed By: #### C DP, MELVIN, BMPX, IPF #### [address] [address] It Support Analyst: Francisco J Fonseca MD Creatinine [Mass/Vol] 0.84 mg/dL Normal 0.70-1.20 [facility] Comment on above: Performed By: #### C DP, MELVIN, BMPX, IPF #### [facility] [employer] [address] [place] [address] It Support Analyst: Francisco J Fonseca MD GFR, Amer >60 Normal >60 [facility] Comment on above: Performed By: #### C DP, MELVIN, BMPX, IPF #### [facility] [employer] [address] [place] [address] It Support Analyst: Francisco J Fonseca MD GFR,non Amer >60 Normal >60 [facility] Comment on above: Performed By: #### C DP, MELVIN, BMPX, IPF #### [facility] [address] [place] [address] It Support Analyst: Francisco J Fonseca MD Glucose [Mass/Vol] 176 mg/dL High 70-99 [facility] Comment on above: Performed By: #### C DP, MELVIN, BMPX, IPF #### [facility] [address] [place] [address] It Support Analyst: Francisco J Fonseca MD Potassium [Moles/Vol] 4.5 mmol/L Normal 3.7-5.3 [facility] Comment on above: Performed By: #### C DP, MELVIN, BMPX, IPF #### [facility] [employer] [address] [place] [address] It Support Analyst: Francisco J Fonseca MD Sodium [Moles/Vol] 138 mmol/L Normal 135-144 [facility] Comment on above: Performed By: #### C DP, MELVIN, BMPX, IPF #### [facility] [employer] [address] [place] [address] 93771 It Support Analyst: Francisco J Fonseca MD Urea nitrogen [Mass/Vol] 21 mg/dL Normal 8-23 [facility] Comment on above: Performed By: #### C DP, MELVIN, BMPX, IPF #### [facility] [employer] [address] [place] [address] It Support Analyst: Francisco J Fonseca MD (cont.) Normal [facility] Comment on above: Result Comment: Aver age GFR for 70 or more years old: 75 mL/min/1.73sq m Chronic Kidney Disease: <60 mL/min/1.73sq m Kidney failure: <15 mL/min/1.73sq m eGFR calculated using average adult body mass. Additional eGFR calculator available at: http://www.CHIC.TV.Shelfari/multiple_crcl_2012.htm Performed By: #### C DP, MELVIN, BMPX, IPF #### [facility] [address] [place] [address] It Support Analyst: Francisco J Fosneca MD Anion gap [Moles/Vol] 6 mmol/L Low 9-17 [facility] Comment on above: Performed By: #### C DP, MELVIN, BMPX, IPF #### [facility] [address] [place] [address] It Support Analyst: Francisco J Fonseca MD Calcium [Mass/Vol] 8.5 mg/dL Low 8.6-10.4 [facility] Comment on above: Performed By: #### C DP, MELVIN, BMPX, IPF #### [address] [address] It Support Analyst: Francisco J Fonseca MD Chloride [Moles/Vol] 105 mmol/L Normal 98-107 [facility] Comment on above: Performed By: #### C DP, MELVIN, BMPX, IPF #### [address] [address] It Support Analyst: Francisco J Fonseca MD CO2 [Moles/Vol] 25 mmol/L Normal 20-31 [facility] Comment on above: Performed By: #### C DP, MELVIN, BMPX, IPF #### [facility] [employer] [address] [place] [address] It Support Analyst: Francisco J Fonseca MD Creatinine [Mass/Vol] 0.75 mg/dL Normal 0.70-1.20 [facility] Comment on above: Performed By: #### C DP, MELVIN, BMPX, IPF #### [facility] [address] [place] [address] It Support Analyst: Francisco J Fonseca MD GFR, Amer >60 Normal >60 [facility] Comment on above: Performed By: #### C DP, MELVIN, BMPX, IPF #### [facility] [employer] [address] [place] [address] It Support Analyst: Francisco J Fonseca MD GFR,non Amer >60 Normal >60 [facility] Comment on above: Performed By: #### C DP, MELVIN, BMPX, IPF #### [address] [address] It Support Analyst: Francisco J Fonseca MD Glucose [Mass/Vol] 81 mg/dL Normal 70-99 [facility] Comment on above: Performed By: #### C DP, MELVIN, BMPX, IPF #### [facility] [employer] [address] [place] [address] It Support Analyst: Francisco J Fonseca MD Potassium [Moles/Vol] 4.6 mmol/L Normal 3.7-5.3 [facility] Comment on above: Performed By: #### C DP, MELVIN, BMPX, IPF #### [address] [address] It Support Analyst: Francisco J Fonseca MD Sodium [Moles/Vol] 136 mmol/L Normal 135-144 [facility] Comment on above: Performed By: #### C DP, MELVIN, BMPX, IPF #### [address] [address] It Support Analyst: Francisco J Fonseca MD Urea nitrogen [Mass/Vol] 18 mg/dL Normal 8-23 [facility] Comment on above: Performed By: #### C DP, MELVIN, BMPX, IPF #### [facility] [employer] [address] [place] [address] It Support Analyst: Francisco J Fonseca MD CBC with Diffon 01-03-2022 Abs. Basophil 0.00 k/uL Normal 0.0-0.2 [facility] Comment on above: Performed By: #### C DP #### [facility] [employer] [address] [place] [address] It Support Analyst: Francisco J Fonseca MD Abs.Imm.Granulocyte 0.00 k/uL Normal 0.00-0.30 [facility] Comment on above: Performed By: #### C DP #### [address] [address] It Support Analyst: Francisco J Fonseca MD Abs.Neutrophil (Seg) 19.89 k/uL High 1.8-7.7 [facility] Comment on above: Performed By: #### C DP #### [address] [address] It Support Analyst: Francisco J Fonseca MD Basophils/100 WBC (Bld) 0 % Normal 0-2 [facility] Comment on above: Performed By: #### C DP #### [address] [address] It Support Analyst: Francisco J Fonseca MD Eosinophils (Bld) [#/Vol] 0.00 10*3/uL Normal 0.0-0.4 [facility] Comment on above: Performed By: #### C DP #### [address] [address] It Support Analyst: Francisco J Fonseca MD Eosinophils/100 WBC (Bld) 0 % Low 1-4 [facility] Comment on above: Performed By: #### C DP #### [address] [address] It Support Analyst: Francisco J Fonseca MD Immature granulocytes/100 WBC (Bld) 0 % Normal 0 [facility] Comment on above: Performed By: #### C DP #### [address] [address] It Support Analyst: Francisco J Fonseca MD Lymphocytes (Bld) [#/Vol] 0.88 10*3/uL Low 1.0-4.8 [facility] Comment on above: Performed By: #### C DP #### [address] [address] It Support Analyst: Francisco J Fonseca MD Lymphocytes/100 WBC (Bld) 4 % Low 24-44 [facility] Comment on above: Performed By: #### C DP #### [address] [address] It Support Analyst: Francisco J Fonseca MD Monocytes (Bld) [#/Vol] 1.33 10*3/uL High 0.1-0.8 [facility] Comment on above: Performed By: #### C DP #### [address] [address] It Support Analyst: Francisco J Fonseca MD Monocytes/100 WBC (Bld) 6 % Normal 1-7 [facility] Comment on above: Performed By: #### C DP #### [address] [address] It Support Analyst: Francisco J Fonseca MD Morphology Walter (Bld) [Interp] MICROCYTOSIS PRESENT Normal [facility] Comment on above: Result Comment: ANIS OCYTOSIS PRESENT 1+ ACANTHOCYTES Performed By: #### C DP #### [address] [address] It Support Analyst: Francisco J Fonseca MD Neutrophil (Seg) 90 % High 36-66 [facility] Comment on above: Performed By: #### C DP #### [address] [address] It Support Analyst: Francisco J Fonseca MD Erythrocyte distribution width (RBC) [Ratio] 18.9 % High 11.8-14.4 [facility] Comment on above: Performed By: #### C DP #### [address] [address] It Support Analyst: Francisco J Fonseca MD Hematocrit (Bld) [Volume fraction] 37.4 % Low 40.7-50.3 [facility] Comment on above: Performed By: #### C DP #### [address] [address] It Support Analyst: Francisco J Fonseca MD Hemoglobin (Bld) [Mass/Vol] 12.2 g/dL Low 13.0-17.0 [facility] Comment on above: Performed By: #### C DP #### [address] [address] It Support Analyst: Francisco J Fonseca MD MCH (RBC) [Entitic mass] 26.9 pg Normal 25.2-33.5 [facility] Comment on above: Performed By: #### C DP #### [address] [address] It Support Analyst: Francisco J Fonseca MD MCHC (RBC) [Mass/Vol] 32.6 g/dL Normal 28.4-34.8 [facility] Comment on above: Performed By: #### C DP #### [address] [address] It Support Analyst: Francisco J Fonseca MD MCV (RBC) [Entitic vol] 82.4 fL Low 82.6-102.9 [facility] Comment on above: Performed By: #### C DP #### [address] [address] It Support Analyst: Francisco J Fonseca MD NRBC Automated 0.0 per 100 WBC Normal 0.0 [facility] Comment on above: Performed By: #### C DP #### [address] [address] It Support Analyst: Francisco J Fonseca MD Platelet mean volume (Bld) [Entitic vol] 12.6 fL Normal 8.1-13.5 [facility] Comment on above: Performed By: #### C DP #### [place] [address] It Support Analyst: Francisco J Fonseca MD Platelets (Bld) [#/Vol] 292 10*3/uL Normal 138-453 [facility] Comment on above: Performed By: #### C DP #### [facility] [address] [place] [address] It Support Analyst: Francisco J Fonseca MD RBC (Bld) [#/Vol] 4.54 10*6/uL Normal 4.21-5.77 [facility] Comment on above: Performed By: #### C DP #### [address] [address] It Support Analyst: Francisco J Fonseca MD WBC (Bld) [#/Vol] 22.1 10*3/uL High 3.5-11.3 [facility] Comment on above: Performed By: #### C DP #### [address] [address] It Support Analyst: Francisco J Fonseca MD Hemoglobin A1Con 01-03-2022 Glucose [Mass/Vol] 223 mg/dL Normal [facility] Comment on above: Result Comment: The ADA and AACC recommend providing the estimated average glucose result to permit better patient understanding of their HBA1c result. Performed By: #### C DP, MELVIN, BMPX, IPF #### [facility] [employer] [address] [place] [address] It Support Analyst: Francisco J Fonseca MD HbA1c (Bld) [Mass fraction] 9.4 % High 4.0-6.0 [facility] Comment on above: Performed By: #### C DP, MELVIN, BMPX, IPF #### [facility] [address] [place] [address] It Support Analyst: Francisco J Fonseca MD Laboratory - Chemistry and C hemistry - challengeon 01-03-2022 Anion gap [Moles/Vol] 12 mmol/L 9 - 17 mmol/L [facility] Calcium [Mass/Vol] 8.3 mg/dL Low 8.6 - 10. 4 mg/dL [facility] Chloride [Moles/Vol] 102 mmol/L 98 - 10 7 mmol/L [facility] CO2 [Moles/Vol] 21 mmol/L 20 - 31 mmol/L [facility] Creatinine [Mass/Vol] 0.88 mg/dL 0.70 - 1.20 mg/dL [facility] GFR/1.73 sq M.predicted MDRD (S/P/Bld) [Vol rate/Area] [facility] Comment on above: Average GFR for 70 o r more years old: 75 mL/min/1.73sq m Chronic Kidney Disease: <60 mL/min/1.73sq m Kidney failure: <15 mL/min/1.73sq m eGFR calculated using average adult body mass. Additional eGFR calculator available at: http://www.[employer]/multiple_crcl_2011.htm Glucose [Mass/Vol] 74 mg/dL 70 - 99 mg/dL [facility] Phosphate [Mass/Vol] 3.3 mg/dL 2.5 - 4 .5 mg/dL [facility] Potassium [Moles/Vol] 4.2 mmol/L 3.7 - 5.3 mmol/L [facility] Sodium [Moles/Vol] 135 mmol/L 135 - 144 mmol/L [facility] Urea nitrogen (BldV) [Mass/Vol] 29 mg/dL High 8 - 23 mg/dL [facility] Glucose [Mass/Vol] 69 mg/dL Low 75 - 110 mg/dL [facility] Glucose [Mass/Vol] 93 mg/dL 75 - 110 mg/dL [facility] Glucose [Mass/Vol] 55 mg/dL Low 75 - 110 mg/dL [facility] Comment on above: Critical Noted Glucose [Mass/Vol] 88 mg/dL 75 - 110 mg/dL [facility] Anion gap [Moles/Vol] 12 mmol/L 9 - 17 mmol/L [facility] Calcium [Mass/Vol] 8.4 mg/dL Low 8.6 - 10. 4 mg/dL [facility] Chloride [Moles/Vol] 103 mmol/L 98 - 10 7 mmol/L [facility] CO2 [Moles/Vol] 21 mmol/L 20 - 31 mmol/L [facility] Creatinine [Mass/Vol] 0.93 mg/dL 0.70 - 1.20 mg/dL [facility] GFR/1.73 sq M.predicted MDRD (S/P/Bld) [Vol rate/Area] [facility] Comment on above: Average GFR for 70 o r more years old: 75 mL/min/1.73sq m Chronic Kidney Disease: <60 mL/min/1.73sq m Kidney failure: <15 mL/min/1.73sq m eGFR calculated using average adult body mass. Additional eGFR calculator available at: http://www.[employer]/multiple_crcl_2011.htm Glucose [Mass/Vol] 155 mg/dL High 70 - 99 mg/dL [facility] Phosphate [Mass/Vol] 2.9 mg/dL 2.5 - 4 .5 mg/dL [facility] Potassium [Moles/Vol] 3.9 mmol/L 3.7 - 5.3 mmol/L [facility] Sodium [Moles/Vol] 136 mmol/L 135 - 144 mmol/L [facility] Urea nitrogen (BldV) [Mass/Vol] 28 mg/dL High 8 - 23 mg/dL [facility] Glucose [Mass/Vol] 152 mg/dL High 75 - 110 mg/dL [facility] Glucose [Mass/Vol] 216 mg/dL High 75 - 110 mg/dL [facility] Glucose [Mass/Vol] 242 mg/dL High 75 - 110 mg/dL [facility] Glucose [Mass/Vol] 243 mg/dL High 75 - 110 mg/dL [facility] Anion gap [Moles/Vol] 11 mmol/L 9 - 17 mmol/L [facility] Calcium [Mass/Vol] 8.4 mg/dL Low 8.6 - 10. 4 mg/dL [facility] Chloride [Moles/Vol] 103 mmol/L 98 - 10 7 mmol/L [facility] CO2 [Moles/Vol] 24 mmol/L 20 - 31 mmol/L [facility] [employer] Creatinine [Mass/Vol] 0.92 mg/dL 0.70 - 1.20 mg/dL [facility] GFR/1.73 sq M.predicted MDRD (S/P/Bld) [Vol rate/Area] [facility] [facility] [employer] Comment on above: Average GFR for 70 o r more years old: 75 mL/min/1.73sq m Chronic Kidney Disease: <60 mL/min/1.73sq m Kidney failure: <15 mL/min/1.73sq m eGFR calculated using average adult body mass. Additional eGFR calculator available at: http://www.Share Practice/multiple_crcl_2011.htm Glucose [Mass/Vol] 226 mg/dL High 70 - 99 mg/dL [facility] Phosphate [Mass/Vol] 3.5 mg/dL 2.5 - 4 .5 mg/dL [facility] [employer] Potassium [Moles/Vol] 5.0 mmol/L 3.7 - 5.3 mmol/L [facility] Sodium [Moles/Vol] 138 mmol/L 135 - 144 mmol/L [facility] [employer] Urea nitrogen (BldV) [Mass/Vol] 26 mg/dL High 8 - 23 mg/dL [facility] Glucose [Mass/Vol] 214 mg/dL High 75 - 110 mg/dL [facility] [employer] Anion gap [Moles/Vol] 13 mmol/L 9 - 17 mmol/L [facility] [employer] Calcium [Mass/Vol] 8.4 mg/dL Low 8.6 - 10. 4 mg/dL [facility] Chloride [Moles/Vol] 104 mmol/L 98 - 10 7 mmol/L [facility] [employer] CO2 [Moles/Vol] 21 mmol/L 20 - 31 mmol/L [facility] Creatinine [Mass/Vol] 0.84 mg/dL 0.70 - 1.20 mg/dL [facility] [employer] GFR/1.73 sq M.predicted MDRD (S/P/Bld) [Vol rate/Area] [facility] Comment on above: Average GFR for 70 o r more years old: 75 mL/min/1.73sq m Chronic Kidney Disease: <60 mL/min/1.73sq m Kidney failure: <15 mL/min/1.73sq m eGFR calculated using average adult body mass. Additional eGFR calculator available at: http://www.Share Practice/multiple_crcl_2012.htm Glucose [Mass/Vol] 176 mg/dL High 70 - 99 mg/dL [facility] [employer] Phosphate [Mass/Vol] 3.1 mg/dL 2.5 - 4 .5 mg/dL [facility] Potassium [Moles/Vol] 4.5 mmol/L 3.7 - 5.3 mmol/L [facility] Sodium [Moles/Vol] 138 mmol/L 135 - 144 mmol/L [facility] Urea nitrogen (BldV) [Mass/Vol] 21 mg/dL 8 - 23 mg/dL [facility] Glucose [Mass/Vol] 126 mg/dL High 75 - 110 mg/dL [facility] Glucose [Mass/Vol] 165 mg/dL High 75 - 110 mg/dL [facility] Glucose [Mass/Vol] 142 mg/dL High 75 - 110 mg/dL [facility] Glucose [Mass/Vol] 89 mg/dL 75 - 110 mg/dL [facility] Glucose [Mass/Vol] 71 mg/dL Low 75 - 110 mg/dL [facility] Glucose [Mass/Vol] 82 mg/dL 75 - 110 mg/dL [facility] Glucose [Mass/Vol] 128 mg/dL High 75 - 110 mg/dL [facility] Anion gap [Moles/Vol] 6 mmol/L Low 9 - 17 mmol/L [facility] Calcium [Mass/Vol] 8.5 mg/dL Low 8.6 - 10. 4 mg/dL [facility] Chloride [Moles/Vol] 105 mmol/L 98 - 10 7 mmol/L [facility] CO2 [Moles/Vol] 25 mmol/L 20 - 31 mmol/L [facility] Creatinine [Mass/Vol] 0.75 mg/dL 0.70 - 1.20 mg/dL [facility] GFR/1.73 sq M.predicted MDRD (S/P/Bld) [Vol rate/Area] [facility] Comment on above: Average GFR for 70 o r more years old: 75 mL/min/1.73sq m Chronic Kidney Disease: <60 mL/min/1.73sq m Kidney failure: <15 mL/min/1.73sq m eGFR calculated using average adult body mass. Additional eGFR calculator available at: http://www.Share Practice/multiple_crcl_2012.htm Glucose [Mass/Vol] 81 mg/dL 70 - 99 mg/dL [facility] Phosphate [Mass/Vol] 2.5 mg/dL 2.5 - 4 .5 mg/dL [facility] Potassium [Moles/Vol] 4.6 mmol/L 3.7 - 5.3 mmol/L [facility] Sodium [Moles/Vol] 136 mmol/L 135 - 144 mmol/L [facility] Urea nitrogen (BldV) [Mass/Vol] 18 mg/dL 8 - 23 mg/dL [facility] Glucose [Mass/Vol] 187 mg/dL High 75 - 110 mg/dL [facility] Laboratory - Hematology and Cell countson 01-03-2022 Basophils (Bld) [#/Vol] 0.00 10*3/uL [facility] Basophils/100 WBC (Bld) 0 % 0 - 2 % [facility] Eosinophils/100 WBC (Bld) 0 % Low 1 - 4 % [facility] Hematocrit (Bld) [Volume fraction] 37.4 % Low 40.7 - 50.3 % [facility] Hemoglobin (Bld) [Mass/Vol] 12.2 g/dL Low 13.0 - 17.0 g/dL [facility] Immature granulocytes/100 WBC (Bld) 0 % 0 [facility] Lymphocytes/100 WBC (Bld) 4 % Low 24 - 44 % [facility] MCH (RBC) [Entitic mass] 26.9 pg 25.2 - 33.5 pg [facility] MCHC (RBC) [Mass/Vol] 32.6 g/dL 28.4 - 34.8 g/dL [facility] MCV (RBC) [Entitic vol] 82.4 fL Low 82.6 - 102.9 fL [facility] Monocytes/100 WBC (Bld) 6 % 1 - 7 % [facility] Morphology Walter (Bld) [Interp] MICROCYTOSIS PRESENT [facility] Morphology Walter (Bld) [Interp] ANISOCYTOSIS PRESENT [facility] Morphology Walter (Bld) [Interp] 1+ ACANTHOCYTES [facility] Platelet distribution width (Bld) [Ratio] 18.9 % High 11.8 - 14.4 % [facility] Platelet mean volume (Bld) [Entitic vol] 12.6 fL 8.1 - 13.5 fL [facility] Platelets (Bld) [#/Vol] 292 10*3/uL [facility] RBC (Bld) [#/Vol] 4.54 10*6/uL 4.21 - 5.77 m/uL [facility] Segmented neutrophils/100 WBC (Bld) 90 % High 36 - 66 % [facility] WBC (Bld) [#/Vol] 22.1 10*3/uL High [facility] [employer] No Panel Informationon 01-03 GFR >60 >60 mL/min [employer] [facility] GFR Non- >60 >60 mL/min [facility] Interpretation and review of laboratory results Abnormal [facility] Interpretation and review of laboratory results Abnormal [facility] Interpretation and review of laboratory results Abnormal [facility] GFR >60 >60 mL/min [facility] GFR Non- >60 >60 mL/min [facility] Interpretation and review of laboratory results Abnormal [facility] Interpretation and review of laboratory results Abnormal [facility] Interpretation and review of laboratory results Abnormal [facility] [employer] [facility] Interpretation and review of laboratory results Abnormal [facility] [employer] [facility] Interpretation and review of laboratory results [...] Low [facility] Absolute [place] # 1.33 High [facility] [...] 022 Phosphorus, Inorg. 3.3 mg/dL Normal 2.5-4.5 [facility] Comment on above: Performed By: #### C DP, MELVIN, BMPX, IPF #### [employer] [address] [place] [address] It Support Analyst: Francisco J Fonseca MD Phosphorus, Inorg. 2.9 mg/dL Normal 2.5-4.5 [facility] Comment on above: Performed By: #### C DP #### [address] [address] It Support Analyst: Francisco J Fonseca MD Phosphorus, Inorg. 3.5 mg/dL Normal 2.5-4.5 [facility] Comment on above: Performed By: #### C DP, MELVIN, BMPX, IPF #### [facility] [address] [place] [address] It Support Analyst: Francisco J Fonseca MD Phosphorus, Inorg. 3.1 mg/dL Normal 2.5-4.5 [facility] Comment on above: Performed By: #### C DP, MELVIN, BMPX, IPF #### [facility] [address] [place] [address] It Support Analyst: Francisco J Fonseca MD Phosphorus, Inorg. 2.5 mg/dL Normal 2.5-4.5 [facility] Comment on above: Performed By: #### C DP, MELVIN, BMPX, IPF #### [facility] [address] [place] [address] It Support Analyst: Francisco J Fonseca MD XR ABDOMEN FOR [...] Eulogio Winslow MD 01/02/22 Final result Normal [facility] AMYLASEon 01-02-2022 Amylase [Catalytic activity/Vol] 13 U/L Critically low 25-115 [facility] Comment on above: Performed By: #### L IPA, TRE, LIVER, BMP #### [facility] [address] [address] [address] Kylee Bunch Basic Metabolic Profon 01-02 Glucose [Mass/Vol] 452 mg/dL Critically high 70-99 [facility] Comment on above: Performed By: #### C DP #### [address] [address] It Support Analyst: Francisco J Fonseca MD (cont.) Normal [facility] Comment on above: Result Comment: Aver age GFR for 70 or more years old: 75 mL/min/1.73sq m Chronic Kidney Disease: <60 mL/min/1.73sq m Kidney failure: <15 mL/min/1.73sq m eGFR calculated using average adult body mass. Additional eGFR calculator available at: http://www.Share Practice/multiple_crcl_2011.htm Performed By: #### C DP #### [address] [address] It Support Analyst: Francisco J Fonseca MD Anion gap [Moles/Vol] 12 mmol/L Normal 9-17 [facility] Comment on above: Performed By: #### C DP #### [address] [address] It Support Analyst: Francisco J Fonseca MD Calcium [Mass/Vol] 8.6 mg/dL Normal 8.6-10.4 [facility] Comment on above: Performed By: #### C DP #### [address] [address] It Support Analyst: Francisco J Fonseca MD Chloride [Moles/Vol] 96 mmol/L Low 98-107 [facility] Comment on above: Performed By: #### C DP #### [address] [address] It Support Analyst: Francisco J Fonseca MD CO2 [Moles/Vol] 22 mmol/L Normal 20-31 [facility] Comment on above: Performed By: #### C DP #### [address] [address] It Support Analyst: Francisco J Fonseca MD Creatinine [Mass/Vol] 0.81 mg/dL Normal 0.70-1.20 [facility] Comment on above: Performed By: #### C DP #### [address] [address] It Support Analyst: Francisco J Fonseca MD GFR, Amer >60 Normal >60 [facility] Comment on above: Performed By: #### C DP #### [address] [address] It Support Analyst: Francisco J Fonseca MD GFR,non Amer >60 Normal >60 [facility] Comment on above: Performed By: #### C DP #### [address] [address] It Support Analyst: Francisco J Fonseca MD Potassium [Moles/Vol] 4.1 mmol/L Normal 3.7-5.3 [facility] Comment on above: Performed By: #### C DP #### [address] [address] It Support Analyst: Francisco J Fonseca MD Sodium [Moles/Vol] 130 mmol/L Low 135-144 [facility] Comment on above: Performed By: #### C DP #### [address] [address] It Support Analyst: Francisco J Fonseca MD Urea nitrogen [Mass/Vol] 19 mg/dL Normal 8-23 [facility] Comment on above: Performed By: #### C DP #### [address] [address] It Support Analyst: Francisco J Fonseca MD CBC AUTO DIFFon 01-02-2022 BASO # 0.0 103/ul Normal 0.0-0.1 [facility] Comment on above: Performed By: #### C MP, LIPID #### [facility] [address] [place] [address] Dr. Kylee Bunch Basophils/100 WBC (Bld) 0.2 % Normal 0.2-2.0 [facility] Comment on above: Performed By: #### C MP, LIPID #### [facility] [address] [place] [address] Dr. Kylee Bunch EO # 0.1 103/ul Normal 0.0-0.7 [facility] Comment on above: Performed By: #### C MP, LIPID #### [facility] [address] [place] [address] Dr. Kylee Bunch Eosinophils/100 WBC (Bld) 0.5 % Critically low 0.9-7.0 [facility] Comment on above: Performed By: #### C MP, LIPID #### [facility] [address] [place] [address] Dr. Kylee Bunch Erythrocyte distribution width (RBC) [Ratio] 18.5 % Critically high 11.0-15.0 [facility] Comment on above: Performed By: #### C MP, LIPID #### [facility] [address] [place] [address] Dr. Kylee Bunch Hematocrit (Bld) [Volume fraction] 37.0 % Critically low 42.0-54.0 [facility] Comment on above: Performed By: #### C MP, LIPID #### [facility] [address] [place] [address] Dr. Kylee Bunch Hemoglobin (Bld) [Mass/Vol] 12.6 g/dL Critically low 14.0-18.0 [facility] Comment on above: Performed By: #### C MP, LIPID #### [facility] [address] [place] [address] Dr. Kylee Bunch IG # 0.02 10e3/ul Normal 0.00-0.03 [facility] Comment on above: Performed By: #### C MP, LIPID #### [facility] [address] [place] [address] Dr. Kylee Bunch IG % 0.2 % Normal 0.0-0.5 [facility] Comment on above: Performed By: #### C MP, LIPID #### [facility] [address] [address] [address] Kylee Bunch LYMPH # 1.2 103/ul Normal 1.2-3.8 [facility] Comment on above: Performed By: #### C MP, LIPID #### [facility] [address] [address] [address] Kylee Bunch Lymphocytes/100 WBC (Bld) 11.3 % Critically low 20.5-60.0 [facility] Comment on above: Performed By: #### C MP, LIPID #### [facility] [address] [place] [address] Dr. Kylee Bunch MANUAL DIFF REQ NO Normal [facility] Comment on above: Performed By: #### C MP, LIPID #### [facility] [address] [place] [address] Dr. Kylee Bunch MCH (RBC) [Entitic mass] 27.1 pg Normal 25.9-34.0 [facility] Comment on above: Performed By: #### C MP, LIPID #### [facility] [address] [place] [address] Dr. Kylee Bunch MCHC (RBC) [Mass/Vol] 34.1 g/dL Normal 29.9-35.2 [facility] Comment on above: Performed By: #### C MP, LIPID #### [facility] [address] [place] [address] Dr. Kylee Bunch MCV (RBC) [Entitic vol] 79.6 fL Critically low 80.0-94.0 [facility] Comment on above: Performed By: #### C MP, LIPID #### [facility] [address] [place] [address] Dr. Kylee Bunch MONO # 0.5 103/ul Normal 0.3-0.8 [facility] Comment on above: Performed By: #### C MP, LIPID #### [facility] [address] [address] [address] Kylee Bunch Monocytes/100 WBC (Bld) 4.5 % Normal 1.7-12.0 [facility] Comment on above: Performed By: #### C MP, LIPID #### [facility] [address] [place] [address] Dr. Kylee Bunch NEUT # 8.5 103/ul Critically high 1.4-6.5 [facility] Comment on above: Performed By: #### C MP, LIPID #### [facility] [address] [place] [address] Dr. Kylee Bunch Neutrophils/100 WBC (Bld) 83.3 % Critically high 43.0-75.0 [facility] Comment on above: Performed By: #### C MP, LIPID #### [facility] [address] [place] [address] Dr. Kylee Bunch Platelet mean volume (Bld) [Entitic vol] 12.6 fL Normal 9.5-13.5 [facility] Comment on above: Performed By: #### C MP, LIPID #### [facility] [address] [place] [address] Dr. Kylee Bunch PLT 335 103/ul Normal 150-450 [facility] Comment on above: Performed By: #### C MP, LIPID #### [facility] [address] [place] [address] Dr. Kylee Bunch RBC 4.65 106/ul Critically low 4.70-6.[address] [facility] Comment on above: Performed By: #### C MP, LIPID #### [facility] [address] [place] [address] Dr. Kylee Bunch WBC 10.2 103/ul Normal 4.0-11.0 [facility] Comment on above: Performed By: #### C MP, LIPID #### [facility] [address] [place] [address] Dr. Kylee Bunch CBC with Diffon 01-02-2022 Abs. Basophil 0.00 k/uL Normal 0.00-0.20 [facility] Comment on above: Performed By: #### C DP, MELVIN, BMPX, IPF #### [address] [address] It Support Analyst: Francisco J Fonseca MD Abs.Imm.Granulocyte 0.00 k/uL Normal 0.00-0.30 [facility] Comment on above: Performed By: #### C DP, MELVIN, BMPX, IPF #### [place] [address] It Support Analyst: Francisco J Fonseca MD Abs.Neutrophil (Seg) 19.47 k/uL High 1.50-8.10 [facility] Comment on above: Performed By: #### C DP, MELVIN, BMPX, IPF #### [place] [address] It Support Analyst: Francisco J Fonseca MD Basophils/100 WBC (Bld) 0 % Normal 0-2 [facility] Comment on above: Performed By: #### C DP, MELVIN, BMPX, IPF #### [place] [address] It Support Analyst: Francisco J Fonseca MD Eosinophils (Bld) [#/Vol] 0.00 10*3/uL Normal 0.00-0.44 [facility] Comment on above: Performed By: #### C DP, MELVIN, BMPX, IPF #### [address] [address] It Support Analyst: Francisco J Fonseca MD Eosinophils/100 WBC (Bld) 0 % Low 1-4 [facility] Comment on above: Performed By: #### C DP, MELVIN, BMPX, IPF #### [facility] [employer] [address] [place] [address] It Support Analyst: Francisco J Fonseca MD Immature granulocytes/100 WBC (Bld) 0 % Normal 0 [facility] Comment on above: Performed By: #### C DP, MELVIN, BMPX, IPF #### [address] [address] It Support Analyst: Francisco J Fonseca MD Lymphocytes (Bld) [#/Vol] 0.41 10*3/uL Low 1.10-3.70 [facility] Comment on above: Performed By: #### C DP, MELVIN, BMPX, IPF #### [address] [address] It Support Analyst: Francisco J Fonseca MD Lymphocytes/100 WBC (Bld) 2 % Low 24-43 [facility] Comment on above: Performed By: #### C DP, MELVIN, BMPX, IPF #### [place] [address] It Support Analyst: Francisco J Fonseca MD Monocytes (Bld) [#/Vol] 0.62 10*3/uL Normal 0.10-1.20 [facility] Comment on above: Performed By: #### C DP, MELVIN, BMPX, IPF #### [place] [address] It Support Analyst: Francisco J Fonseca MD Monocytes/100 WBC (Bld) 3 % Normal 3-12 [facility] Comment on above: Performed By: #### C DP, MELVIN, BMPX, IPF #### [place] [address] It Support Analyst: Francisco J Fonseca MD Morphology Walter (Bld) [Interp] ANISOCYTOSIS PRESENT Normal [facility] Comment on above: Performed By: #### C DP, MELVIN, BMPX, IPF #### [place] [address] It Support Analyst: Francisco J Fonseca MD Neutrophil (Seg) 95 % High 36-65 [facility] Comment on above: Performed By: #### C DP, MELVIN, BMPX, IPF #### [address] [address] It Support Analyst: Francisco J Fonseca MD Erythrocyte distribution width (RBC) [Ratio] 18.3 % High 11.8-14.4 [facility] Comment on above: Performed By: #### C DP, MELVIN, BMPX, IPF #### [place] [address] It Support Analyst: Francisco J Fonseca MD Hematocrit (Bld) [Volume fraction] 38.9 % Low 40.7-50.3 [facility] Comment on above: Performed By: #### C DP, MELVIN, BMPX, IPF #### [place] [address] It Support Analyst: Francisco J Fonseca MD Hemoglobin (Bld) [Mass/Vol] 12.9 g/dL Low 13.0-17.0 [facility] Comment on above: Performed By: #### C DP, MELVIN, BMPX, IPF #### [place] [address] It Support Analyst: Francisco J Fonseca MD MCH (RBC) [Entitic mass] 26.9 pg Normal 25.2-33.5 [facility] Comment on above: Performed By: #### C DP, MELVIN, BMPX, IPF #### [place] [address] It Support Analyst: Francisco J Fonseca MD MCHC (RBC) [Mass/Vol] 33.2 g/dL Normal 28.4-34.8 [facility] Comment on above: Performed By: #### C DP, MELVIN, BMPX, IPF #### [address] [address] It Support Analyst: Francisco J Fonseca MD MCV (RBC) [Entitic vol] 81.2 fL Low 82.6-102.9 [facility] Comment on above: Performed By: #### C DP, MELVIN, BMPX, IPF #### [address] [address] It Support Analyst: Francisco J Fonseca MD NRBC Automated 0.0 per 100 WBC Normal 0.0 [facility] Comment on above: Performed By: #### C DP, MELVIN, BMPX, IPF #### [address] [address] It Support Analyst: Francisco J Fonseca MD Platelet mean volume (Bld) [Entitic vol] 12.4 fL Normal 8.1-13.5 [facility] Comment on above: Performed By: #### C DP, MELVIN, BMPX, IPF #### [address] [address] It Support Analyst: Francisco J Fonseca MD Platelets (Bld) [#/Vol] 324 10*3/uL Normal 138-453 [facility] Comment on above: Performed By: #### C DP, MELVIN, BMPX, IPF #### [address] [address] It Support Analyst: Francisco J Fonseca MD RBC (Bld) [#/Vol] 4.79 10*6/uL Normal 4.21-5.77 [facility] Comment on above: Performed By: #### C DP, MELVIN, BMPX, IPF #### [address] [address] It Support Analyst: Francisco J Fonseca MD WBC (Bld) [#/Vol] 20.5 10*3/uL High 3.5-11.3 [facility] Comment on above: Performed By: #### C DP, MELVIN, BMPX, IPF #### [address] [address] It Support Analyst: Francisco J Fonseca MD CT ABD/PELAlthea Menjivar 01-03-20 CT ABD/PELV W CON EXAMINATION: CT [...] identified. Background diffuse body wall edema with [id number] volume of abdominal and pelvic ascites noted. [...] AM on 01/02/2022. Electronically authenticated by: ROLA POSADAH Date: 2022-01-02 09:27 Normal [facility]on 12-11 SARS-CoV-2 (COVID-19) RNA ANASTASIA+probe Ql (Unsp spec) Not detected Normal NOT DETECTED [facility] Comment on above: Result Comment: When [...] for this test is supported by the [place] of Health and Human Service's declaration that [...] longer be used). Performed By: #### C VDTBH #### [facility] [address] [place] [address] Dr. Kylee Bunch ER URINE PROFILEon 2 Bilirubin Ql (U) Negative Normal NEGATIVE [facility] Comment on above: Performed By: #### C MP, LIPID #### [facility] [address] [place] [address] Dr. Kylee Bunch Clarity (U) CLEAR Normal CLEAR [facility] Comment on above: Performed By: #### C MP, LIPID #### [facility] [address] [place] [address] Dr. Kylee Bunch Color (U) LT. YELLOW Normal YELLOW [facility] Comment on above: Performed By: #### C MP, LIPID #### [facility] [address] [place] [address] Dr. Kylee Bunch ERUAHD A micrscopic examina tion will be performed if indicated. Normal [facility] Comment on above: Performed By: #### C MP, LIPID #### [facility] [address] [place] [address] Dr. Kylee Bunch Hemoglobin Ql (U) TRACE-INTACT Abnormal NEGATIVE [facility] Comment on above: Performed By: #### C MP, LIPID #### [facility] [address] [place] [address] Dr. Kylee Bunch Ketones Ql (U) 15 mg/dl Abnormal NEGATIVE [facility] Comment on above: Performed By: #### C MP, LIPID #### [facility] Laboratory [address] [place] [address] Dr. Kylee Bunch LEUKOCYTES Negative Normal NEGATIVE [facility] Comment on above: Performed By: #### C MP, LIPID #### [facility] [address] [place] [address] Dr. Kylee Bunch Nitrite Ql (U) Negative Normal NEGATIVE [facility] Comment on above: Performed By: #### C MP, LIPID #### [facility] [address] [place] [address] Dr. Kylee Bunch pH (U) 5.5 [pH] Normal 5-9 [facility] Comment on above: Performed By: #### C MP, LIPID #### [facility] [address] [place] [address] Dr. Kylee Bunch SPEC GRAVITY 1.015 Normal 1.005-<=1. 025 [facility] Comment on above: Performed By: #### C MP, LIPID #### [facility] [address] [place] [address] Dr. Kylee Bunch UA PROTEIN Negative Normal NEGATIVE/ TRACE [facility] Comment on above: Performed By: #### C MP, LIPID #### [facility] [address] [place] [address] Dr. Kylee Bunch UR MICRO IND INDICATED Normal [facility] Comment on above: Performed By: #### C MP, LIPID #### [facility] [address] [place] [address] Dr. Kylee Bunch Urobilinogen Qn (U) 0.2 {Gemini'U}/dL Normal 0.2 - 1. 0 [facility] Comment on above: Performed By: #### C MP, LIPID #### [facility] [address] [place] [address] Dr. Kylee Bunch LIPASEon 01-02-2022 Lipase [Catalytic activity/Vol] 9.0 U/L Critically low 73.0-393.0 [facility] Comment on above: Performed By: #### L IPA, TRE, LIVER, BMP #### [facility] [address] [place] [address] Dr. Kylee Bunch LIVER PROFILEon 01-02-2022 Albumin [Mass/Vol] 3.3 g/dL Critically low 3.4-5.0 [facility] Comment on above: Performed By: #### L IPA, TRE, LIVER, BMP #### [facility] [address] [address] [address] Kylee Bunch Albumin/Globulin [Mass ratio] 0.9 {ratio} Normal [facility] Comment on above: Performed By: #### L IPA, TRE, LIVER, BMP #### [facility] [address] [address] [address] Kylee Bunch ALP [Catalytic activity/Vol] 116 U/L Normal 46-116 [facility] Comment on above: Performed By: #### L IPA, TRE, LIVER, BMP #### [facility] [address] [address] [address] Kylee Bunch ALT [Catalytic activity/Vol] 21 U/L Normal 16-63 [facility] Comment on above: Performed By: #### L IPA, TRE, LIVER, BMP #### [facility] [address] [place] [address] Dr. Kylee Bunch AST [Catalytic activity/Vol] 24 U/L Normal 15-37 [facility] Comment on above: Performed By: #### L IPA, TRE, LIVER, BMP #### [facility] [address] [address] [address] Kylee Bunch BILI, CONJUGATED 0.1 mg/dL Normal 0.0-0.2 [facility] Comment on above: Performed By: #### L IPA, TRE, LIVER, BMP #### [facility] [address] [address] [address] Kylee Bunch Bilirubin [Mass/Vol] 0.6 mg/dL Normal 0.2-1.0 [facility] Comment on above: Performed By: #### L IPA, TRE, LIVER, BMP #### [facility] [address] [address] [address] Kylee Bunch Globulin (S) [Mass/Vol] 3.6 g/dL Normal [facility] Comment on above: Performed By: #### L IPA, TRE, LIVER, BMP #### [facility] [address] [address] [address] Kylee Bunch Protein [Mass/Vol] 6.9 g/dL Normal 6.4-8.[address] [facility] Comment on above: Performed By: #### L IPA, TRE, LIVER, BMP #### [facility] [address] [address] [address] Kylee Bunch Laboratory - Chemistry and C hemistry - challengeon 01-02-2022 Glucose [Mass/Vol] 223 mg/dL [facility] [employer] Comment on above: The ADA and AACC rec ommend providing the estimated average glucose result to permit better patient understanding of their HBA1c result. Glucose [Mass/Vol] 227 mg/dL High 75 - 110 mg/dL [facility] Glucose [Mass/Vol] 290 mg/dL High 75 - 110 mg/dL [facility] Glucose [Mass/Vol] 300 mg/dL High 75 - 110 mg/dL [facility] Glucose [Mass/Vol] 323 mg/dL High 75 - 110 mg/dL [facility] [employer] Anion gap [Moles/Vol] 12 mmol/L 9 - 17 mmol/L [facility] [employer] Calcium [Mass/Vol] 8.6 mg/dL 8.6 - 10. 4 mg/dL [facility] Chloride [Moles/Vol] 96 mmol/L Low 98 - 10 7 mmol/L [facility] [employer] CO2 [Moles/Vol] 22 mmol/L 20 - 31 mmol/L [facility] [employer] Creatinine [Mass/Vol] 0.81 mg/dL 0.70 - 1.20 mg/dL [facility] GFR/1.73 sq M.predicted MDRD (S/P/Bld) [Vol rate/Area] [facility] Comment on above: Average GFR for 70 o r more years old: 75 mL/min/1.73sq m Chronic Kidney Disease: <60 mL/min/1.73sq m Kidney failure: <15 mL/min/1.73sq m eGFR calculated using average adult body mass. Additional eGFR calculator available at: http://www.Share [employer]/multiple_crcl_2012.htm Glucose [Mass/Vol] 452 mg/dL Critically high 70 - 9 9 mg/dL [facility] [employer] Potassium [Moles/Vol] 4.1 mmol/L 3.7 - 5.3 mmol/L [facility] Sodium [Moles/Vol] 130 mmol/L Low 135 - 144 mmol/L [facility] Urea nitrogen (BldV) [Mass/Vol] 19 mg/dL 8 - 23 mg/dL [facility] Albumin [Mass/Vol] 3.6 g/dL 3.5 - 5.2 g/dL [facility] Albumin/Globulin [Mass ratio] 1.3 {ratio} [facility] ALP (Bld) [Catalytic activity/Vol] 100 U/L 40 - 129 U/L [facility] ALT [Catalytic activity/Vol] 15 U/L 5 - 41 U/L [facility] AST [Catalytic activity/Vol] 18 U/L <40 [facility] Bilirubin [Mass/Vol] 0.45 mg/dL 0.3 - 1 .2 mg/dL [facility] Bilirubin.indirect [Mass/Vol] 0.17 mg/dL <0.31 [facility] Free PSA/Total PSA [Mass fraction] 6.4 g/dL 6.4 - 8.3 g/dL [facility] Glucose [Mass/Vol] 433 mg/dL Critically high 75 - 1 10 mg/dL [facility] Comment on above: Critical Noted Laboratory - Coagulationon 0 01-02-2022 INR Coag (Bld) [Relative time] 1.2 {INR} [facility] Comment on above: Therapeutic Range: Moderate Anticoagulant Intensity: INR = 2.0-3.0 High Anticoagulant Intensity: INR = 2.5-3.5 PT Coag (PPP) [Time] 12.5 s High [facility] Laboratory - Hematology and Cell countson 01-02-2022 HbA1c (Bld) [Mass fraction] 9.4 % High 4.0 - 6.0 % [facility] Basophils (Bld) [#/Vol] 0.00 10*3/uL [facility] Basophils/100 WBC (Bld) 0 % 0 - 2 % [facility] Eosinophils/100 WBC (Bld) 0 % Low 1 - 4 % [facility] Hematocrit (Bld) [Volume fraction] 38.9 % Low 40.7 - 50.3 % [facility] Hemoglobin (Bld) [Mass/Vol] 12.9 g/dL Low 13.0 - 17.0 g/dL [facility] Immature granulocytes/100 WBC (Bld) 0 % 0 [facility] Lymphocytes/100 WBC (Bld) 2 % Low 24 - 43 % [facility] MCH (RBC) [Entitic mass] 26.9 pg 25.2 - 33.5 pg [facility] MCHC (RBC) [Mass/Vol] 33.2 g/dL 28.4 - 34.8 g/dL [facility] MCV (RBC) [Entitic vol] 81.2 fL Low 82.6 - 102.9 fL [facility] Monocytes/100 WBC (Bld) 3 % 3 - 12 % [facility] Morphology Walter (Bld) [Interp] ANISOCYTOSIS PRESENT [facility] Platelet distribution width (Bld) [Ratio] 18.3 % High 11.8 - 14.4 % [facility] Platelet mean volume (Bld) [Entitic vol] 12.4 fL 8.1 - 13.5 fL [facility] Platelets (Bld) [#/Vol] 324 10*3/uL [facility] RBC (Bld) [#/Vol] 4.79 10*6/uL 4.21 - 5.77 m/uL [facility] Segmented neutrophils/100 WBC (Bld) 95 % High 36 - 65 % [facility] WBC (Bld) [#/Vol] 20.5 10*3/uL High [facility] Lactate, Sepsison 01-02-2022 Lactic Acid,Sep Wbld 1.7 mmol/L Normal 0.5-1.9 [facility] Comment on above: Performed By: #### C DP, MELVIN, BMPX, IPF #### [facility] [employer] [address] [place] [address] It Support Analyst: Francisco J Fonseca MD Liver Profileon 01-02-2022 Albumin [Mass/Vol] 3.6 g/dL Normal 3.5-5.2 [facility] Comment on above: Performed By: #### C DP #### [address] [address] It Support Analyst: Francisco J Fonseca MD Albumin/Glob Ratio 1.3 Normal 1.0-2.5 [facility] Comment on above: Performed By: #### C DP #### [address] [address] It Support Analyst: Francisco J Fonseca MD Alkaline Phos 100 U/L Normal 40-129 [facility] Comment on above: Performed By: #### C DP #### [address] [address] It Support Analyst: Francisco J Fonseca MD ALT [Catalytic activity/Vol] 15 U/L Normal 5-41 [facility] Comment on above: Performed By: #### C DP #### [address] [address] It Support Analyst: Francisco J Fonseca MD AST [Catalytic activity/Vol] 18 U/L Normal <40 [facility] Comment on above: Performed By: #### C DP #### [address] [address] It Support Analyst: Francisco J Fonseca MD Bilirubin [Mass/Vol] 0.45 mg/dL Normal 0.3-1.2 [facility] Comment on above: Performed By: #### C DP #### [address] [address] It Support Analyst: Francisco J Fonseca MD Bilirubin, Indirect 0.28 mg/dL Normal 0.00-1.00 [facility] Comment on above: Performed By: #### C DP #### [address] [address] It Support Analyst: Francisco J Fonseac MD Bilirubin.indirect [Mass/Vol] 0.17 mg/dL Normal <0.31 [facility] Comment on above: Performed By: #### C DP #### [employer] [address] [place] [address] It Support Analyst: Francisco J Fonseca MD Protein [Mass/Vol] 6.4 g/dL Normal 6.4-8.3 [facility] Comment on above: Performed By: #### C DP #### [employer] [address] [place] [address] It Support Analyst: Francisco J Fonseca MD No Panel Informationon 01-02 Interpretation and review of laboratory results Abnormal [facility] Interpretation and review of laboratory results Abnormal [facility] Enteric tube needs t o be advanced 10 cm. [facility] EXAMINATION: ONE SUPINE XRAY VIEW(S) OF [...] to be advanced at least 10 cm. [facility] Eulogio Winslow MD - 01/02/2022 EXAMINATION: [...] tube needs to be advanced 10 cm. [employer] Work Phone: Interpretation and review of laboratory results Abnormal [facility] Interpretation and review of laboratory results Abnormal [facility] Radiology Study observation (narrative) [facility] Work Phone: Absolute Eos # 0.00 [facility] Absolute Immature Granulocyte 0.00 [facility] Absolute Lymph # 0.41 Low [facility] Absolute [place] # 0.62 [facility] Interpretation and review of laboratory results Abnormal [facility] NRBC Automated 0.0 0.0 per 100 WBC [facility] Segs Absolute 19.47 High [facility] Interpretation and review of laboratory results Abnormal [facility] Interpretation and review of laboratory results Abnormal [facility] Lactic Acid, Sepsis, Whole Blood 1.7 mmol/L 0.5 - 1.9 mmol/L [facility] GFR >60 >60 mL/min [facility] GFR Non- >60 >60 mL/min [facility] Interpretation and review of laboratory results Abnormal [facility] Bilirubin, Indirect 0.28 mg/dL 0.00 - 1.00 mg/dL [facility] Interpretation and review of laboratory results Abnormal [facility] No Panel InformationOrdered By: Eulogio Winslow on 01-02-2022 [facility] Work Phone: POINT OF CARE GLUCOSEon 12-11 Glucose [Mass/Vol] 408 mg/dL Critically high 74-106 [facility] Comment on above: Performed By: #### P OCGLUC #### [facility] [address] [address] [address] Kylee Bunch PROF CHEM 8 (BAS METB)on Anion gap [Moles/Vol] 16.4 mmol/L Normal [facility] Comment on above: Performed By: #### L IPA, TRE, LIVER, BMP #### [facility] [address] [address] [address] Kylee Bunch Calcium [Mass/Vol] 8.8 mg/dL Normal 8.5-10.1 [facility] Comment on above: Performed By: #### L IPA, TRE, LIVER, BMP #### [facility] [address] [address] [address] Kylee Bunch Chloride [Moles/Vol] 96 mmol/L Critically low 98-107 [facility] Comment on above: Performed By: #### L IPA, TRE, LIVER, BMP #### [facility] [address] [place] [address] Dr. Kylee Bunch CO2 [Moles/Vol] 25.1 mmol/L Normal 21.0-32.0 [facility] Comment on above: Performed By: #### L IPA, TRE, LIVER, BMP #### [facility] [address] [place] [address] Dr. Kylee Bunch Creatinine [Mass/Vol] 1.22 mg/dL Normal 0.70-1.30 [facility] Comment on above: Performed By: #### L IPA, TRE, LIVER, BMP #### [facility] [address] [place] [address] Dr. Kylee Bunch EGFR-AF POLISH >60 Normal >=60 [facility] Comment on above: Performed By: #### L IPA, TRE, LIVER, BMP #### [facility] [address] [place] [address] Dr. Kylee Bunch EGFR-NON AF POLISH 57 mL/min/1.73m2 Critically low >=60 [facility] Comment on above: Performed By: #### L IPA, TRE, LIVER, BMP #### [facility] [address] [place] [address] Dr. Kylee Bunch Glucose [Mass/Vol] 579 mg/dL Critically high 74-106 [facility] Comment on above: Result Comment: repe ated Performed By: #### L IPA, TRE, LIVER, BMP #### [facility] [address] [place] [address] Dr. Kylee Bunch Potassium [Moles/Vol] 4.5 mmol/L Normal 3.5-5.1 [facility] Comment on above: Performed By: #### L IPA, TRE, LIVER, BMP #### [facility] [address] [address] [address] Kylee Bunch Sodium [Moles/Vol] 133 mmol/L Critically low 136-145 [facility] Comment on above: Performed By: #### L IPA TRE, LIVER, BMP #### [facility] [address] [address] [address] Kylee Bunch Urea nitrogen [Mass/Vol] 19.0 mg/dL Critically high 7.0-18.0 [facility] Comment on above: Performed By: #### L IPA TRE, LIVER, BMP #### [facility] [address] [place] [address] Dr. Kylee Bunch Urea nitrogen/Creatinine [Mass ratio] 15.6 mg/mg Normal [facility] Comment on above: Performed By: #### L IPA, TRE, LIVER, BMP #### [facility] [address] [place] [address] Dr. Kylee Bunch PTon 01-02-2022 INR Coag (PPP) [Relative time] 1.2 {INR} Normal [facility] Comment on above: Result Comment: Therapeutic Range: Moderate Anticoagulant Intensity: INR = 2.0-3.0 High Anticoagulant Intensity: INR = 2.5-3.5 Performed By: #### C DP, MELVIN, BMPX, IPF #### [employer] [address] [place] [address] It Support Analyst: Francisco J Fonseca MD PT Coag (PPP) [Time] 12.5 s High 9.1-12.3 [facility] Comment on above: Performed By: #### C DP, MELVIN, BMPX, IPF #### [employer] [address] [place] [address] It Support Analyst: Francisco J Fonseca MD URINE MICROSCOPIC ONLYon BACTERIA NONE SEEN Normal NONE SEEN [facility] Comment on above: Performed By: #### C MP, LIPID #### [facility] [address] [place] [address] Dr. Kylee Bunch Bacteria identified Cx Nom (U) NOT INDICATED Normal [facility] Comment on above: Performed By: #### C MP, LIPID #### [facility] [address] [place] [address] Dr. Kylee Bunch CAST NONE SEEN Normal NONE SEEN [facility] Comment on above: Performed By: #### C MP, LIPID #### [facility] [address] [place] [address] Dr. Kylee Bunch Crystals LM Nom (Urine sed) NONE SEEN Normal NONE SEEN [facility] Comment on above: Performed By: #### C MP, LIPID #### [facility] [address] [place] [address] Dr. Kylee Bunch Epithelial cells LM Ql (Urine sed) RARE Normal NONE SEEN /RARE [facility] Comment on above: Performed By: #### C MP, LIPID #### [facility] [address] [place] [address] Dr. Kylee Bunch MUCOUS NONE SEEN Normal NONE SEEN [facility] Comment on above: Performed By: #### C MP, LIPID #### [facility] [address] [place] [address] Dr. Kylee Bunch RBC 0-2 Normal 0-2 [facility] Comment on above: Performed By: #### C MP, LIPID #### [facility] [address] [place] [address] Dr. Kylee Bunch WBC NONE SEEN Normal NONE SEEN [facility] Comment on above: Performed By: #### C MP, LIPID #### [facility] [address] [place] [address] Dr. Kylee Bunch Reminderson 06-21-2019 Reminders - From: Daniella Palma CMA To: [facility] - Reminders/Recalls; Sent: 01/12/2019 11:34:41 EDT Show up: 05/12/2019 11:34:00 EDT Subject: 2018 RECALL Due Date/Time: 06/19/2019 11:34:00 EST Reminder/Recall Colonoscopy recall [address] Almeida Due 06/19/19 First Recall Letter Second Recall Letter Pt. called back and states that due to his age he is not going to have another colonoscopy mlc Normal [facility] HOSPon 06-23-2018 HOSP Patient Update (GENSMN) ASHWINI VICKERS ([id number]) 1935 MDate Time Provider Eswjtallev36/13/18 MARIE JULIAN During your visit today, we recorded the following information about you:Allergies As of Date: 06/23/2018(No Known Allergies)Date Reviewed: 06/14/2018Reviewed by: Marie Julian - Fully AssessedReason for Visit: CURE 08/08/18 [Other]Primary Visit Diagnosis:Preoperative examination [Z01.818]Order(s):CONSULT TO [facility] [1236081] Order #: [id number]: 1 TYPE + SCREEN,30 DAY [REBYTE10] Order #: [id number] FUTURE CONFIRM BLOOD TYPE [SQCONABO] Order #: [id number] FUTURE CBC + DIFF [SQCBCDIF] Order #: [id number] FUTURE COMP METABOLIC PANEL [SQCMP] Order #: [id number] FUTURE XR CHEST 2V FRONTAL/LAT [8787101] Order #: [id number] FUTURE ECG COMPLETE W INTERPRETATION [ECG01] Order #: [id number] FUTURE REFER FOR ADMIT INTERVIEW [0279357] Order #: [id number] CONSULT TO GERIATRICS [90] Order #: [id number]: 1 CONSULT TO PATIENT EDUCATION [19990815] Order #: [id number]: 1 NITISH WHAT TO EXPECT DURING YOUR HOSPITAL STAY [1068425] Order #: [id number]: 1 NITISH PT ED GENERAL SURG [2607669] Order #: [id number]: [address] [facility] [2607119] Order #: [id number]: 1 SURGICAL REQUEST - ELECTIVE [1770428] Order #: [id number]: 1Prescriptions as of 06/23/2018 Sig: ASPIRIN 81 MG TABLET,DELAYED * Take 81 mg by mouth once parul* CETIRIZINE 10 MG TABLET Take 10 mg by mouth once parul* CHOLECALCIFEROL (VITAMIN D3) * Take 2,000 Units by mouth onc* CENTRUM SILVER ORAL Take by mouth once daily. PROBIOTIC-10 ORAL Take by mouth once daily. [id number]-[id number] 24,00* Take 2 capsules by mouth thre* LUTEIN-ZEAXANTHIN 25 MG-5 MG * Take by mouth once daily.Problem List As Of Date 06/23/2018 Noted Resolved IPMN (intraductal papillary mucinous neoplasm) *INVALID FOR* More...Follow-up and Disposition History RecordedEncounter Number: [id number] Status:Closed by BREANA FANG on 06/23/18 [facility] CNOVon 06-14-2018 CNOV Office Visit (LINDA) ASHWINI VICKERS ([id number]) 1935 MDate Time Provider Babfjmppvo53/4/18 9:30 AM MARIE JULIAN During your visit today, we recorded the following information about you: Temperature Pulse Blood pressure Weight 98.4 degrees 53/minute 182/84 70 kg Height 1.778 mMisty Jumana Aragon 06/14/2018 9:25 AM SignedWhat is the reason for your visit today? CONSULTWho is your referring physician? Dr. Castro.MarieAre you having poor oral intake? NOHave you had unintentional weight loss of 15 lbs/7 Kg in the last 3-6 months? NOBowels: regularWound: clean AND dryTemperature: NoDrains: NoMaysoon Mahmoud GamalEl 06/14/2018 1:32 PM SignedPancreatic Cyst HANDP InitialSamuarmin [id number] s consult was requested by Marie Castro, for evaluation ofpancreatic cyst(s) My final recommendations will be communicated to therequesting health care provider by way of the shared medical record or USpostal services.HPIAshwini Vickers is a 83 year old [...] cells. Paucicellular specimen.Serum LabsNo results found for: BDMWI00-2 (U/mL)Date Value04/19/2018 61 No results found for: [...] work results in detail with Ashwini Vickers and therecommendation to proceed with a whipple [...] with the [facility] and recommend that the procedure should be [...] and answering all of their questionsSIGNATURE:Andrei Julian MDHPPawan surgeryPager: [phone]: Referring Provider: MARIE CASTRO [[id number]]Allergies As of Date: 06/14/2018(No Known Allergies)Date Reviewed: 06/14/2018Reviewed by: Marie Julian - Fully AssessedPrimary Visit Diagnosis:IPMN (intraductal papillary mucinous neoplasm) [D49.0]Prescriptions as of 06/14/2018 Sig: [id number] 24,00* Take 2 capsules by mouth thre* [...] List As Of Date: 06/14/2018(None)Visit Notes:>> Lenka Jumana Aragon Kael Jun 14, 2018 9:21 AM Status: SignedWhat is the reason for your visit today? CONSULTWho is your referring physician? Dr. Castro., Marie OttAre you having poor oral intake? NOHave you had unintentional weight loss of 15 lbs/7 Kg in the last 3-6months? NOBowels: regularWound: clean AND dryTemperature: NoDrains: NoEncounter Number: [id number] Status:Closed by MARIE JULIAN MD on 06/14/18 Normal [facility] HISTORY PHYSICALon 8 HISTORY PHYSICAL HNO ID: [id number] thor: Marie Morris: (none)Author Type: PhysicianType: HANDPFiled: [...] all of their questionsSIGNATURE:Andrei Julian MDHPB surgeryPager: [phone]: Normal [facility] HISTORY PHYSICAL HNO ID: [id number] thor: Josie Castellon (Res) GamaleldinService: (none)Author Type: ResidentType: HANDPFiled: 06/14/2018 1:32 PMNote Text:Pancreatic [facility]yst [facility] [id number][facility]/1935Thi s consult was requested by Marie Castro, for evaluation ofpancreatic cyst(s) My final recommendations will be communicated to thereroosevelt general hospitaling health care provider by way of the shared medical record or USpostal services.HPIAshwini Vickers is a 83 year old [...] cells. Paucicellular specimen.Serum LabsNo results found for: SIXHQ50-5 (U/mL)Date Value04/19/2018 61 No results found for: [...] work results in detail with Ashwini Marshallamilcar andthe recommendation to proceed with a whipple [...] the name of an HPB surgeon at [facility] kenny that the procedure should be done by an HPB surgeon. Seen with Josie Méndez MD10:21 AM06/14/2018 Normal [facility] ANES Wilma 04-27-2018 ANES POST HNO ID: [id number] thor: Guille CastilloSerstephene: (none)Author Type: AnesthesiologistType: Anesthesia PostOpFiled: 04/27/2018 9:48 AMNote Text:POST ANESTHESIA EVALUATION NOTESERVICE DATE: 04/27/2018SERVICE TIME: 0948DOB: 1935Vitals:There were no vitals filed for this [...] 27, 2018 : 9:48 AM PAGER/CONTACT #: [phone] Normal [facility] Amylase,Body Fluidon 018 Amylase,Body Fluid 45315 U/L Critically abnormal See Comment [facility] Comment on above: Result Comment: (NOT E)PLEURAL [...] CLSI document C49-[id number]. BRAD Alarcon: Clinical LaboratoryStandards [place]; 2007.3. Denice CAIH, Chantale REAL, Tyson DJ. Use of cyst fluid CEA,CA19-9, and amylase for evaluation of pancreatic lesions. ClinicalBiochemistry. 2009;42:0440-5166.This test was developed and its performance characteristicsdetermined by [facility] [facility] andLabor[facility] Medicine [place] ([facility]).It has not been cleared or approved by the FDA. [facility] is regulatedunder [facility] as qualified to perform high-complexity testing.This test is used for clinical purposes. It should not be regarded asinvestigational or for research. Performed By: #### P T, CBCDIF, HFP, TSH, CA199 ####[facility] [address] [place], [place] [phone] Fluid Type Fluid-other Normal [facility] Comment on above: Result Comment: PANC REATIC CYST FLUID Performed By: #### P T, CBCDIF, HFP, TSH, CA199 ####[facility] [address] [place], [place] [phone] CEA, Fluidon 04-27-2018 CEA, Fluid 24.7 ng/mL Normal [facility] Comment on above: Result Comment: (NOT E)INTERPRETIVE INFORMATION: Carcinoembryonic Antigen, FluidThe Jacques CEA electrochemiluminescent immunoassay was used.Results obtained with different assay methods or kits cannot beused interchangeably. The CEA assay value, regardless of level,should not be interpreted as evidence for the presence or absenceof malignant disease.For information on body fluid reference ranges and/or interpretiveguidance visit http://[email or web address]/Test developed and characteristics determined by [employer]. See Compliance Statement B: [facility]/CSPerformed by [employer],[facility]y [facility],[place] [address] jnh.[facility], Oswaldo Tellez MD, Lab. Director Performed By: #### P T, CBCDIF, HFP, TSH, CA199 ####[facility], [place] [phone] Source, Fluid Fluid-other Normal [facility] Comment on above: Result Comment: PANC REATIC CYST FLUID Performed By: #### P T, CBCDIF, HFP, TSH, CA199 ####[facility], [place] [phone] Glucose, Body Fluidon 2017 Glucose, Body Fluid <2 Critically abnormal See Comment [facility] Comment on above: Result Comment: Resu lt rechecked. Performed By: #### P T, CBCDIF, HFP, TSH, CA199 ####[facility], [place] [phone] CA 19-9on 04-19-2018 CA 19-9 61 U/mL High <36 [facility] Comment on above: Result Comment: Test analyzed by the Bk DxI method. Performed By: #### P T, CBCDIF, HFP, TSH, CA199 ####[facility], [place] [phone] CBC and Differentialon 04-19 Abs Baso <0.03 Normal <0.11 [facility] Comment on above: Performed By: #### P T, CBCDIF, HFP, TSH, CA199 ####[facility], [place] [phone] Abs [place] 0.52 k/uL Normal <0.87 [facility] Comment on above: Performed By: #### P T, CBCDIF, HFP, TSH, CA199 ####[place] [address] [place] [phone] Abs Neut 3.73 k/uL Normal 1.45-7.50 [facility] Comment on above: Performed By: #### P T, CBCDIF, HFP, TSH, CA199 ####[place] [address] [place] [phone] Absolute nRBC <0.01 Normal <0.01 [facility] Comment on above: Performed By: #### P T, CBCDIF, HFP, TSH, CA199 ####[place] [address] [place] [phone] Basophils/100 WBC Auto (Bld) 0.3 % Normal [facility] Comment on above: Performed By: #### P T, CBCDIF, HFP, TSH, CA199 ####[place] [address] [place] [phone] DTYPE Auto Diff Normal [facility] Comment on above: Performed By: #### P T, CBCDIF, HFP, TSH, CA199 ####[place] [address] [place] [phone] Eosinophils Auto #/vol (Bld) 0.09 10*3/uL Normal <0.46 [facility] Comment on above: Performed By: #### P T, CBCDIF, HFP, TSH, CA199 ####[place] [address] [place] [phone] Eosinophils/100 WBC Auto (Bld) 1.5 % Normal [facility] Comment on above: Performed By: #### P T, CBCDIF, HFP, TSH, CA199 ####[place] [address] [place] [phone] Erythrocyte distribution width Auto Ratio (RBC) 15.0 % Normal 11.5-15.0 [facility] Comment on above: Performed By: #### P T, CBCDIF, HFP, TSH, CA199 ####[place] [address], [place] [phone] Hematocrit Auto Volume Fraction (Bld) 44.6 % Normal 39.0-51.0 [facility] Comment on above: Performed By: #### P T, CBCDIF, HFP, TSH, CA199 ####[place] [address], [place] [phone] Hemoglobin mass conc (Bld) 13.7 g/dL Normal 13.0-17.0 [facility] Comment on above: Performed By: #### P T, CBCDIF, HFP, TSH, CA199 ####[place] [address] [place] [phone] Lymphocytes Auto #/vol (Bld) 1.79 10*3/uL Normal 1.00-4.00 [facility] Comment on above: Performed By: #### P T, CBCDIF, HFP, TSH, CA199 ####[place] [address], [place] [phone] Lymphocytes/100 WBC Auto (Bld) 29.0 % Normal [facility] Comment on above: Performed By: #### P T, CBCDIF, HFP, TSH, CA199 ####[place] [address], [place] [phone] MCH Auto Entitic mass (RBC) 26.7 pG Normal 26.0-34.0 [facility] Comment on above: Performed By: #### P T, CBCDIF, HFP, TSH, CA199 ####[place] [address], [place] [phone] MCHC Auto mass conc (RBC) 30.7 g/dL Normal 30.5-36.0 [facility] Comment on above: Performed By: #### P T, CBCDIF, HFP, TSH, CA199 ####[facility] [place] [phone] MCV Auto Entitic volume (RBC) 86.8 fL Normal 80.0-100.0 [facility] Comment on above: Performed By: #### P T, CBCDIF, HFP, TSH, CA199 ####[facility] [place] [phone] Monocytes/100 WBC Auto (Bld) 8.4 % Normal [facility] Comment on above: Performed By: #### P T, CBCDIF, HFP, TSH, CA199 ####[place] [address] [place] [phone] Neutrophils/100 WBC Auto (Bld) 60.8 % Normal [facility] Comment on above: Performed By: #### P T, CBCDIF, HFP, TSH, CA199 ####[facility] [place] [phone] NRBCs 0.0 /100 WBC Normal 0 [facility] Comment on above: Performed By: #### P T, CBCDIF, HFP, TSH, CA199 ####[facility], [place] [phone] Platelet mean volume Auto Entitic volume (Bld) 10.6 fL Normal 9.0-12.7 [facility] Comment on above: Performed By: #### P T, CBCDIF, HFP, TSH, CA199 ####[facility] [place] [phone] Platelets Auto #/vol (Bld) 130 10*3/uL Low 150-400 [facility] Comment on above: Result Comment: Resu lt checked and verifiedNo clot detected. Performed By: #### P T, CBCDIF, HFP, TSH, CA199 ####[facility] [place], [place] [phone] RBC Auto #/vol (Bld) 5.14 10*6/uL Normal 4.20-6.00 [facility] Comment on above: Performed By: #### P T, CBCDIF, HFP, TSH, CA199 ####[facility] [place], [place] [phone] WBC Auto #/vol (Bld) 6.17 10*3/uL Normal 3.70-11.00 [facility] Comment on above: Performed By: #### P T, CBCDIF, HFP, TSH, CA199 ####[address] [phone] CNOVon 04-19-2018 CNOV Office Visit (GASTMN) ASHWINI VICKERS ([id number]) [address] [facility] Time Provider Quyfpdtenn92/9/18 7:40 AM MARINO POE GASTMN During your visit today, we recorded the following information about you: Temperature Pulse Blood pressure Weight 97.7 degrees 44/minute 150/68 65.7 kg Height 1.803 Gold Poe MD 04/19/2018 10:06 AM SignedNew Patient/ConsultREASON FOR VISITSkary Vickers is a 83 year old male who is scheduled for a consult at [facility] of Marie Castro MD.PCPRobert Tru Castro MD.[facility] , [address] COMPLAINTReferral for Pancreatic Cancer screeningWeight lossMy [...] and familyagreeable with this plan. Questions answered.Marino Poe MDApril 19, 201810:36 AMMarino Poe MD 04/19/2018 8:32 AM SignedExpect a call to schedule your endoscopy appointment today or tomorrow morning.If you haven't heard, call me. 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 My office number is [phone] Number: [id number] Status:Closed by MARINO POE MD on 04/19/18 Normal [facility] HOSP 04-19-2018 HOSP Patient:Julio Vickers lMRN: Height:5' 11 [...] 04/19/2018 12:24 PM Signed----- Message from Marino Poe sent at 04/19/2018 10:03 AM EDT -----Ange,Can you please call him and let him know the disc was received? No need to getanother copy from [employer].Thanks,Rl Bonilla LPN, JACINTA 04/19/2018 12:26 PM SignedCalled pt to let him know the cd was received and no need to get a copy.Progress Notes (KIMBERLEE MAIN A30):Marino Poe MD 04/19/2018 10:06 AM SignedNew Patient/ConsultREASON FOR VISITSkary Vickers is a 83 year old male who is scheduled for a consult at [facility] of Marie Castro MD.PCPRobert Tru Castro MD.[facility] [address] [facility] [address] COMPLAINTReferral for Pancreatic Cancer screeningWeight lossMy [...] and familyagreeable with this plan. Questions answered.Marino Poe MDStraith [facility] For [facility] 201710:36 AMPrevious VersionMarino Poe MD 04/19/2018 8:32 AM SignedExpect a call to schedule your endoscopy appointment today or tomorrow morning.If you haven't heard, call me. My office number is [phone] Normal [facility] Hepatic Functn Panelon 04-19 Albumin mass conc 4.3 g/dL Normal 3.9-4.9 [facility] Comment on above: Performed By: #### P T, CBCDIF, HFP, TSH, CA199 ####[facility] [place], [place] [phone] ALP enzyme act/vol 83 U/L Normal 38-113 [facility] Comment on above: Performed By: #### P T, CBCDIF, HFP, TSH, CA199 ####[facility] [place], [place] [phone] ALT enzyme act/vol 12 U/L Normal 10-54 [facility] Comment on above: Performed By: #### P T, CBCDIF, HFP, TSH, CA199 ####[address] [phone] AST enzyme act/vol 18 U/L Normal 14-40 [facility] Comment on above: Performed By: #### P T, CBCDIF, HFP, TSH, CA199 ####[address] [phone] Bilirubin mass conc 0.3 mg/dL Normal 0.2-1.3 [facility] Comment on above: Performed By: #### P T, CBCDIF, HFP, TSH, CA199 ####[address] [phone] Bilirubin,Conjugated <0.2 Normal <0.2 [facility] Comment on above: Performed By: #### P T, CBCDIF, HFP, TSH, CA199 ####[address] [phone] Protein mass conc 6.9 g/dL Normal 6.3-8.0 [facility] Comment on above: Performed By: #### P T, CBCDIF, HFP, TSH, CA199 ####[address] [phone] Protimeon 04-19-2018 INR Coag RelTime (Bld) 1.0 {INR} Normal 0.9-1.3 [facility] Comment on above: Result Comment: Robina min K Antagonist (VKA) Therapeutic Range: INR 2 to 3 (Target INR of 2.5)Note: For patients treated with VKA drugs, such as warfarin, the [place] [employer] 2012 Guideline recommends [...] of 3).Ariadne GH, et al. Chest 2012, 141:7S-47SNishimura RA, et al. [facility] 2017, 70: 252-289 Performed By: #### P T, CBCDIF, HFP, TSH, CA199 ####[facility] [place], [place] [phone] PT Sec 10.9 sec Normal 9.7-13.0 [facility] Comment on above: Performed By: #### P T, CBCDIF, HFP, TSH, CA199 ####[address] [phone] TSHon 04-19-2018 Thyrotropin Qn 0.874 uU/mL Normal 0.400-5.50 0 [facility] Comment on above: Performed By: #### P T, CBCDIF, HFP, TSH, CA199 ####[place] [id number] [place], [place] [phone] PROGRESSon 04-11-2018 Protein mass conc HNO ID: [id number] thor: Marino Cummings: (none)Author Type: PhysicianType: Progress NotesFiled: 04/19/2018 10:06 AMNote Text:New Patient/ConsultREASON FOR Jas Vickers is a 83 year old male who is scheduled for a consult at [facility] of Marie Castro MD.PCPRobmarsha Castro MD.[address] COMPLAINTReferral for Pancreatic Cancer screeningWeight lossMy final recommendations will be communicated back to the requestingphysician by the way of the shared medical record, fax, or via US Mail.HISTORY OF PRESENT ILLNESSThis patient has presented with several months of unexplained weight joyz96-10 pounds. There are no gastrointestinal symptoms to [...] and family agreeable with this plan. Questionsanswered.Marino Poe MDOctober 201710:36 AM Normal [facility] CT OUTSIDE CD DICOM IMPORT - NBNRon 03-29-2018 CT OUTSIDE CD DICOM IMPORT -NBNR Images were obtained outside of [facility] [id number] Normal [facility] CT-CT abdomen pelvis wo/w co n IMPORTon 03-29-2018 CT-CT abdomen pelvis wo/w con IMPORT Images were obtained outside of [facility] [id number] Normal [facility] Vital Signs Date Time Vital Sign Value Performing Clinician Facility 10-28-2023 14:51-0400 Body height 177.8 cm DO Marie Jamak Work Phone: [facility] 10-28-2023 14:51-0400 Body mass index (BMI) [Ratio] 20.9 kg/m2 DO Marie Xavichak Work Phone: [facility] 10-28-2023 14:51-0400 Body weight 66.22 kg DO Marie Jamak Work Phone: [facility] 10-28-2023 14:51-0400 Diastolic blood pressure 70 mm[Hg] DO Marie Xavichak Work Phone: [facility] 10-28-2023 14:51-0400 Heart rate 64 /min DO Marie Xavichak Work Phone: [facility] 10-28-2023 14:51-0400 Respiratory rate 18 /min DO Marie Jamak Work Phone: [facility] 10-28-2023 14:51-0400 SaO2% (BldA) [Mass fraction] 96 % DO Marie Xavichak Work Phone: [facility] 10-28-2023 14:51-0400 Systolic blood pressure 144 mm[Hg] DO Marie Vaschak Work Phone: [facility] 10-21-2023 08:36-0400 Body height 177.8 cm DO Marie Jamak Work Phone: [facility] 10-21-2023 08:36-0400 Body mass index (BMI) [Ratio] 21.2 kg/m2 DO Marie Vaschak Work Phone: [facility] 10-21-2023 08:36-0400 Body weight 67.13 kg DO Marie Vaschak Work Phone: [facility] 09-28-2023 10:26-0400 Body height 177.8 cm DO Marie Vaschak Work Phone: [facility] 09-28-2023 10:26-0400 Body mass index (BMI) [Ratio] 21.2 kg/m2 DO Marie Vaschak Work Phone: [facility] 09-28-2023 10:26-0400 Body weight 67.13 kg DO Marie Vaschak Work Phone: [facility] 09-27-2023 15:40-0400 Diastolic blood pressure 74 mm[Hg] DO Marie Vaschak Work Phone: [facility] 09-27-2023 15:40-0400 Heart rate 72 /min DO Marie Vaschak Work Phone: [facility] 09-27-2023 15:40-0400 Systolic blood pressure 140 mm[Hg] DO Marie Vaschak Work Phone: [facility] 09-06-2023 12:00-0500 Body temperature 98.4 [degF] DO Marie Vaschak Work Phone: [facility] 09-06-2023 12:00-0500 Diastolic blood pressure 62 mm[Hg] DO Marie Vaschak Work Phone: [facility] 09-06-2023 12:00-0500 Heart rate 67 /min DO Marie Vaschak Work Phone: [facility] 09-06-2023 12:00-0500 Respiratory rate 16 /min DO Marie Vaschak Work Phone: [facility] 09-06-2023 12:00-0500 SaO2% (BldA) [Mass fraction] 97 % DO Marie Vaschak Work Phone: [facility] 09-06-2023 12:00-0500 Systolic blood pressure 108 mm[Hg] DO Marie Vaschak Work Phone: [facility] 09-06-2023 06:00-0500 Body weight 68.2 kg DO Marie Xavichak Work Phone: [facility] 09-01-2023 15:42-0500 Body height 177.8 cm DO Marie Xavichak Work Phone: [facility] 08-16-2023 14:07-0500 Body height 177.8 cm Sammy Wolff HAND [employer]ER[employer]ATION OPERATOR Work Phone: [facility] 08-16-2023 14:07-0500 Body mass index (BMI) [Ratio] 20.09 kg/m2 Sammy Wolff HAND RE[employer]ER[employer]ATION OPERATOR Work Phone: [facility] 08-16-2023 14:07-0500 Body weight 63.5 kg Sammyamilcar Wolff HAND REAMER[employer] STATION OPERATOR Work Phone: [facility] 08-16-2023 14:07-0500 Diastolic blood pressure 80 mm[Hg] Sammy Wolff HAND RE[employer]ER[employer] STATION OPERATOR Work Phone: [facility] 08-16-2023 14:07-0500 Heart rate 72 /min Sammy Wolff HAND REAMER[employer] STATION OPERATOR Work Phone: [facility] 08-16-2023 14:07-0500 Systolic blood pressure 134 mm[Hg] Sammyamilcar Wolff HAND REAMER[employer] STATION OPERATOR Work Phone: [facility] 07-16-2023 22:45-0500 Diastolic blood pressure 95 mm[Hg] DO Marie Xavichak Work Phone: [facility] 07-16-2023 22:45-0500 Heart rate 69 /min DO Marie Xavichak Work Phone: [facility] 07-16-2023 22:45-0500 Respiratory rate 16 /min DO Marie Xavichak Work Phone: [facility] 07-16-2023 22:45-0500 SaO2% (BldA) [Mass fraction] 98 % DO Marie Castro Work Phone: [facility] 07-16-2023 22:45-0500 Systolic blood pressure 164 mm[Hg] DO Marie Jamak Work Phone: [facility] 07-16-2023 13:24-0500 Body height 177.8 cm DO Mraie Castro Work Phone: [facility] 07-16-2023 13:24-0500 Body temperature 96.7 [degF] DO Marie Castro Work Phone: [facility] 07-16-2023 13:24-0500 Body weight 63.95 kg DO Marie Castro Work Phone: [facility] 05-25-2023 13:41-0500 Diastolic blood pressure 88 mm[Hg] Adrián Davis DO Work Phone: [facility] 05-25-2023 13:41-0500 Systolic blood pressure 136 mm[Hg] Adrián Davis DO Work Phone: [facility] 05-25-2023 13:37-0500 Body height 177.8 cm Adrián Davis DO Work Phone: [facility] 05-25-2023 13:37-0500 Body mass index (BMI) [Ratio] 19.51 kg/m2 Adrián Davis DO Work Phone: [facility] 05-25-2023 13:37-0500 Body weight 61.69 kg Adrián Davis DO Work Phone: [facility] 05-25-2023 13:37-0500 Heart rate 70 /min Adrián Davis DO Work Phone: [facility] 05-08-2023 10:33-0400 Diastolic blood pressure 85 mm[Hg] DO Marie Castro Work Phone: [facility] 05-08-2023 10:33-0400 Heart rate 97 /min DO Marie Vaschak Work Phone: [facility] 05-08-2023 10:33-0400 Respiratory rate 18 /min DO Marie Xavichak Work Phone: [facility] 05-08-2023 10:33-0400 Systolic blood pressure 156 mm[Hg] DO Marie Vaschak Work Phone: [facility] 05-08-2023 05:00-0400 Body temperature 98.8 [degF] DO Marie Vaschak Work Phone: [facility] 05-08-2023 05:00-0400 SaO2% (BldA) [Mass fraction] 97 % DO Marie Vaschak Work Phone: [facility] 05-04-2023 11:00-0400 Body height 177.8 cm DO Marie Jamak Work Phone: [facility] 05-03-2023 16:44-0400 Body weight 66.4 kg DO Marie Xavichak Work Phone: [facility] 05-03-2023 11:48-0400 Body temperature 98.1 [degF] DO Marie Xavichak Work Phone: [facility] 05-03-2023 11:48-0400 Diastolic blood pressure 77 mm[Hg] DO Marie Vaschak Work Phone: [facility] 05-03-2023 11:48-0400 Heart rate 55 /min DO Marie Xavichak Work Phone: [facility] 05-03-2023 11:48-0400 Respiratory rate 18 /min DO Marie Xavichak Work Phone: [facility] 05-03-2023 11:48-0400 SaO2% (BldA) [Mass fraction] 99 % DO Marie Vaschak Work Phone: [facility] 05-03-2023 11:48-0400 Systolic blood pressure 146 mm[Hg] DO Marie Vaschak Work Phone: [facility] 05-03-2023 05:40-0400 Body weight 67.6 kg DO Marie Matthew Work Phone: [facility] 05-02-2023 00:00-0400 Inhaled oxygen flow rate 6 L/min DO Marie Jamak Work Phone: [facility] 04-30-2023 15:31-0400 Body mass index (BMI) [Ratio] 18.8 kg/m2 DO Marie Matthew Work Phone: [facility] 04-30-2023 15:25-0400 Body height 180.34 cm DO Marie Castro Work Phone: [facility] 04-28-2023 16:32-0400 Heart rate 63 /min DO Marie Castro Work Phone: [facility] 04-28-2023 16:24-0400 Diastolic blood pressure 83 mm[Hg] DO Marie Matthew Work Phone: [facility] 04-28-2023 16:24-0400 Respiratory rate 18 /min DO Marie Matthew Work Phone: [facility] 04-28-2023 16:24-0400 SaO2% (BldA) [Mass fraction] 98 % DO Marie Matthew Work Phone: [facility] 04-28-2023 16:24-0400 Systolic blood pressure 167 mm[Hg] DO Marie Matthew Work Phone: [facility] 04-28-2023 13:34-0400 Body temperature 97.2 [degF] DO Marie Jamak Work Phone: [facility] 04-28-2023 12:19-0400 Body height 180.34 cm DO Marie Matthew Work Phone: [facility] 04-28-2023 12:19-0400 Body weight 64.41 kg DO Marie Castro Work Phone: [facility] 01-07-2022 09:35-0400 Diastolic blood pressure 95 mm[Hg] rGay Ross MD Work Phone: [facility] 01-07-2022 09:35-0400 Systolic blood pressure 160 mm[Hg] Gray Ross MD Work Phone: [facility] 01-07-2022 07:46-0400 Body temperature 97.81 [degF] Gray Ross MD Work Phone: [facility] 01-07-2022 07:46-0400 Heart rate 64 /min Gray Ross MD Work Phone: [facility] 01-07-2022 07:46-0400 Respiratory rate 15 /min Gray Ross MD Work Phone: [facility] 01-07-2022 07:46-0400 SaO2% (BldA) [Mass fraction] 98 % Gray Ross MD Work Phone: [facility] 01-03-2022 04:00-0400 Body height 177.8 cm Gray Ross MD Work Phone: [facility] 01-03-2022 04:00-0400 Body mass index (BMI) [Ratio] 20.81 kg/m2 Gray Ross MD Work Phone: [facility] 01-03-2022 04:00-0400 Body weight 65.8 kg Gray Ross MD Work Phone: [facility] 04-27-2018 10:48-0400 Body mass index (BMI) [Ratio] MARINO POE [facility] Encounters Encounter Date Encounter Type Care Provider Facility Start: 10-28-2023 End: 10-28-2023 ambulatory DO Marie Yunbrody Work Phone: [facility] Work Phone: Start: 10-28-2023 End: 10-28-2023 Patient encounter procedure DO Marie Yunk Work Phone: [facility] Work Phone: Start: 10-21-2023 End: 10-21-2023 ambulatory DO Marie Xavichak Work Phone: [facility] Work Phone: Start: 10-21-2023 End: 10-21-2023 Patient encounter procedure DO Marie Jamak Work Phone: [facility] Work Phone: Start: 10-13-2023 End: 10-13-2023 ambulatory None Provider Facility:[facility] Start: 09-28-2023 End: 09-28-2023 ambulatory DO Marie Yunk Work Phone: [facility] Work Phone: Start: 09-28-2023 End: 09-28-2023 Patient encounter procedure DO Marie Jamak Work Phone: [facility] Work Phone: Start: 09-27-2023 End: 09-27-2023 ambulatory Candy Taoon Facility:[facility] Start: 09-27-2023 End: 09-27-2023 ambulatory DO Marie Jamak Work Phone: [facility] Work Phone: Start: 09-27-2023 End: 09-27-2023 Discharged Recurring DO Marie Jamak Work Phone: [facility] Work Phone: Start: 09-24-2023 End: 09-24-2023 ambulatory Marie Vaschak Facility:[facility] Start: 09-24-2023 End: 09-24-2023 ambulatory DO Marie Xavichak Work Phone: [facility] Work Phone: Start: 09-24-2023 End: 09-24-2023 Patient encounter procedure DO Marie Castro Work Phone: [facility] Work Phone: Start: 09-09-2023 End: 09-09-2023 ambulatory STALIN ALAMO Not Available Start: 09-06-2023 Non-patient / Non-visit DO Marie Castro Work Phone: [facility] Work Phone: Start: 08-31-2023 End: 09-06-2023 Evaluation and management of inpatient Marie Castro Facility:[facility] Start: 08-31-2023 Non-patient / Non-visit DO Marie Castro Work Phone: [facility] Work Phone: Start: 08-31-2023 End: 09-06-2023 Evaluation and management of inpatient DO Marie Castro Work Phone: [facility] [place] [facility] Work Phone: Start: 08-30-2023 End: 08-30-2023 ambulatory MARIE CASTRO Not Available Start: 08-16-2023 End: 08-16-2023 ambulatory SAMMY WOLFF [facility] [employer] Other Start: 08-16-2023 End: 08-16-2023 Office outpatient visit 15 minutes Sammy Wolff HAND REAMER-WATERWORKS PUMP STATION OPERATOR Work Phone: [facility] Comment on above: Cardiomyopathy, isch emic (Primary Dx); ASHD (arteriosclerotic heart disease); BMI 20.0-20.9, adult; Orthopnea Start: 08-16-2023 Telephone encounter Anat JENKINS [facility] Start: 07-27-2023 End: 07-27-2023 ambulatory Marie Castro Facility:[facility] Start: 07-27-2023 End: 07-27-2023 ambulatory DO Marie Vaschak Work Phone: [facility] Work Phone: Start: 07-27-2023 End: 07-27-2023 Patient encounter procedure DO Marie Castro Work Phone: [facility] [place] [facility] Start: 07-16-2023 End: 07-17-2023 ambulatory Marie Castro Facility:[facility] Start: 07-16-2023 End: 07-16-2023 Admission to same day surgery center DO Marie Yunk Work Phone: [facility]Carpentry Supervisor Work Phone: Start: 07-16-2023 End: 07-16-2023 ambulatory DO Marie Castro Work Phone: [facility] Work Phone: Start: 07-01-2023 ambulatory None Provider Facility: [facility] Start: 06-23-2023 End: 06-23-2023 ambulatory [facility] Ambulatory Start: 06-22-2023 End: 06-22-2023 ambulatory Ashwini Conrad Other [employer] Other Start: 06-22-2023 Telephone encounter [facility] Start: 06-11-2023 End: 06-11-2023 ambulatory Marie Castro Facility:[facility] Start: 06-11-2023 End: 06-11-2023 ambulatory DO Marie Castro Work Phone: [facility] Work Phone: Start: 06-11-2023 End: 06-11-2023 Patient encounter procedure DO Marie Yunk Work Phone: [facility] Start: 06-02-2023 End: 06-09-2023 ambulatory UNKNOWN PROVIDER Facility:[facility] Start: 05-26-2023 Telephone encounter Ashwini Tillman [facility] Start: 05-26-2023 End: 05-27-2023 ambulatory DO Marie Castro Work Phone: [facility] Work Phone: Start: 05-26-2023 End: 05-26-2023 Patient encounter procedure DO Marie Castro Work Phone: [facility] Start: 05-25-2023 End: 05-25-2023 ambulatory [facility] Ambulatory Start: 05-25-2023 End: 05-25-2023 Office consultation new/estab patient 60 min [facility] DO Work Phone: [facility] Comment on above: NSTEMI (non-ST eleva robert myocardial infarction) ([facility]/HCC) (Primary Dx); Abnormal stress test; ASHD (arteriosclerotic heart disease); Essential hypertension; Diabetes mellitus type II, non insulin dependent (CMS/HCC); Closed fracture of right hip, initial encounter ([facility]) Start: 05-21-2023 Postop follow up vis it related to original px [facility] Start: 05-21-2023 End: 05-21-2023 ambulatory Ashwini Conrad [facility] [employer] [facility] [employer] Other Start: 05-21-2023 End: 05-21-2023 Patient encounter procedure DO Marie Castro Work Phone: [facility] [place] [facility] Start: 05-03-2023 End: 05-08-2023 Evaluation and management of inpatient Fredi Medrano Facility:[facility] Start: 05-03-2023 End: 05-08-2023 Evaluation and management of inpatient DO Marie Castro Work Phone: [facility] [place] [facility] Work Phone: Start: 04-28-2023 End: 05-03-2023 Evaluation and management of inpatient Humberto Diaz Facility:[facility] Start: 04-28-2023 End: 05-03-2023 Evaluation and management of inpatient DO Marie Castro Work Phone: [facility] Work Phone: Start: 04-23-2023 End: 04-24-2023 ambulatory None Provider Facility:[facility] Start: 06-05-2022 End: 06-06-[address] MARIE CASTRO Facility:[facility] Start: 05-18-2022 Encounter for other specified special examinations DR MARIE CASTRO [facility] Start: 05-14-2022 End: 05-15-[address] MARIE CASTRO Facility:[facility] Start: 05-14-2022 End: 05-15-2022 Encounter for other specified special examinations DR MARIE CASTRO Facility:[facility] Start: 01-02-2022 End: 01-07-2022 Evaluation and management of inpatient PAUL OROZCODINABARBIE [facility] Start: 01-02-2022 End: 01-07-2022 Evaluation and management of inpatient Gray Ross MD Work Phone: [address] Stepdown Comment on above: Acute gastric ulcer with perforation (HCC) (Primary Dx); Gastric perforation (HCC) Start: 01-02-2022 End: 01-02-[address] SALVADOR NARANJO Facility:[facility] Start: 06-14-2018 End: 06-15-2018 Patient encounter procedure MARIE JULIAN (FEL) [facility] Start: 04-27-2018 End: 04-27-2018 Patient encounter procedure MARINO POE [facility] Start: 04-19-2018 End: 04-20-2018 Patient encounter procedure MARINO POE [facility] Procedures Date Procedure Procedure Detail Performing Clinician Start: 09-24-2023 X-ray of cervical spine DO Marie Castro Work Phone: Start: 09-01-2023 X-ray of cervical spine DO Marie Castro Work Phone: Start: 09-01-2023 Antibody screen Marie Castro Comment on above: Order Comment: Trans fuse now? Y Number of units to transfuse now? 1 Transfuse now? Y Number of units to transfuse now? 1 Transfuse now? Y Number of units to transfuse now? 1 Result Comment: PERF ORMED BY:[facility] [place], [place] [phone] MEDICAL DIRECTORAIRAM MAST M.D. Start: 08-16-2023 FOLLOW UP IN CARDIOLOGY ADRIÁN DAVIS Start: 07-27-2023 Plain X-ray of right hip DO Marie Castro Work Phone: Start: 07-16-2023 CL PCI ADOBE FLEX DEVELOPER Ea Add LAD D O Marie Castro [...] hip DO Marie Castro Work Phone: Start: 04-30-2023 Antibody screen Marie Castro Comment on above: Result Comment: PERF ORMED BY:[facility] [place] [id number] MEDICAL DIRECTORAIRAM MAST M.D. Start: 04-30-2023 End: 04-30-2023 Plain X-ray of right hip DO Marie melendez Work Phone: Start: 04-30-2023 Open reduction of fr acture with internal fixation DO Marie Castro Work Phone: Start: 04-30-2023 Plain chest X-ray DO Ro nathalia Matthew Work Phone: Start: 04-30-2023 CL [facility] Angio DO R davidmarsha Castro Work Phone: Start: 04-29-2023 Open reduction of fr acture with internal fixation DO Marie Castro Work Phone: Start: 04-28-2023 Plain chest X-ray DO Ro nathalia Matthew Work Phone: Start: 04-28-2023 Plain X-ray of right femur DO Marie Castro Work Phone: Start: 04-28-2023 Plain X-ray of right hip DO Marie Castro Work Phone: Start: 01-07-2022 Assay of magnesium [...] blood reagent strip Paul denson DO Start: 01-03-2022 Glucose blood reagent strip Paul [...] End: 01-02-2022 Glucose blood reagent strip Paul Hampton Start: 01-02-2022 Radiologic exam abdo men 1 view Emi Ange DO Start: 01-02-2022 Culture bacterial quanttative colony count urine Tristan Bueno DO Work Phone: Start: 01-02-2022 End: 01-02-2022 Glucose blood reagent strip Paul Hampton Start: 01-02-2022 End: 01-02-2022 BOWEL RESECTION HEMICOLECTOMY [...] DTaP/Tdap/Td vaccine (3 - Td or Tdap) [facility] Start: 03-18-2028 DTaP/Tdap/Td Vaccines (3 - Td or Tdap) DTaP/Tdap/Td Vaccines (3 - Td or Tdap) [facility] Start: 09-06-2023 [facility] Start: 09-06-2023 Referral to rehabilitation physician [facility] Start: 08-31-2023 Hospital admission [facility] Start: 08-31-2023 Consultation [facility] Start: 08-31-2023 Referral to diesel retrofit installer [facility] Start: 08-31-2023 Control Bleeding in Gastrointestinal Tract, Via Natural or Artificial Opening Endoscopic Control Bleeding in Gastrointestinal Tract, Via Natural or Artificial Opening Endoscopic [facility] Start: 08-31-2023 Excision of Esophagus, Via Natural or Artificial Opening Endoscopic, Diagnostic Excision of Esophagus, Via Natural or Artificial Opening Endoscopic, Diagnostic [facility] Start: 08-31-2023 Excision of Stomach, Pylorus, Via Natural or Artificial Opening Endoscopic, Diagnostic Excision of Stomach, Pylorus, Via Natural or Artificial Opening Endoscopic, Diagnostic [facility] Start: 08-16-2023 End: 08-16-2024 Basic metabolic 2000 panel - Serum or Plasma Basic Metabolic Panel Lab Routine Cardiomyopathy, ischemic Expected: 08/16/2023 (Approximate), Expires: 08/16/2024 [facility] Work Phone: Comment on above: Expected: 08/16/2023 (Approximate), Expi res: 08/16/2024 Start: 08-16-2023 End: 08-16-2024 Natriuretic peptide B [Mass/volume] in Blood B-Type Natriuretic Peptide Lab Routine Cardiomyopathy, ischemic Orthopnea Expected: 08/16/2023 (Approximate), Expires: 08/16/2024 [facility] Service Area Work Phone: Comment on above: Expected: 08/16/2023 (Approximate), Expi res: 08/16/2024 Start: 07-16-2023 End: 07-16-2023 [facility] Start: 07-13-2023 COVID-19 Vaccine (3 - Moderna series) COVID-19 Vaccine (3 - Moderna series) [facility] Start: 06-23-2023 End: 06-23-2023 Patient encounter procedure 06/23/2023 2:00 PM EST Office Visit [facility] [address] [facility] [address] [place] [id number] Sammy Wolff, HAND REAMER-WATERWORKS PUMP STATION OPERATOR [address] [facility] [address] [place] [address] [facility] Start: 05-07-2023 [facility] Start: 05-04-2023 Administration of prophylactic treatment [facility] Start: 05-03-2023 Hospital admission [facility] Start: 05-03-2023 Referral to clinical associate professor of chemistry [facility] Start: 05-03-2023 [facility] Start: 05-03-2023 Referral to rehabilitation physician [facility] Start: 05-02-2023 Blood chemistry [facility] Start: 05-02-2023 [facility] Start: 05-01-2023 Blood chemistry [facility] Start: 05-01-2023 [facility] Start: 04-30-2023 Referral to Showroom Consultant [facility] Start: 04-30-2023 Blood chemistry [facility] Start: 04-30-2023 End: 04-30-2023 [facility] Start: 04-29-2023 Blood chemistry [facility] Start: 04-29-2023 Lipid panel [facility] Start: 04-29-2023 [facility] Start: 04-28-2023 [facility] Start: 04-28-2023 Hospital admission [facility] Start: 04-28-2023 [facility] Start: 04-28-2023 Hospital admission [facility] Start: 04-28-2023 Consultation [facility] Start: 04-28-2023 Referral to asbestos removal worker [facility] Start: 04-28-2023 End: 04-28-2023 [facility] Start: 04-28-2023 Fluoroscopy of Left Heart using Low Osmolar Contrast Fluoroscopy of Left Heart using Low Osmolar Contrast [facility] Start: 04-28-2023 Fluoroscopy of Multiple Coronary Arteries using Low Osmolar Contrast Fluoroscopy of Multiple Coronary Arteries using Low Osmolar Contrast [facility] Start: 04-28-2023 Insertion of Intramedullary Internal Fixation Device into Right Upper Femur, Percutaneous Approach Insertion of Intramedullary Internal Fixation Device into Right Upper Femur, Percutaneous Approach [facility] Start: 04-28-2023 Measurement of Cardiac Sampling and Pressure, Left Heart, Percutaneous Approach Measurement of Cardiac Sampling and Pressure, Left Heart, Percutaneous Approach [facility] Start: 04-04-2022 Hemoglobin A1c measurement Diabetes: Hemoglobin A1C [facility] Start: 06-30-2021 Shingles vaccine (2 of 2) Shingles vaccine (2 of 2) [facility] Start: 01-19-2021 COVID-19 Vaccine (3 - Booster for Moderna series) COVID-19 Vaccine (3 - Booster for Moderna series) [facility] Start: 09-14-2020 Meningococcal B Vaccine (3 of 4 - Increased Risk Bexsero 2-dose series) Meningococcal B Vaccine (3 of 4 - Increased Risk Bexsero 2-dose series) [facility] Start: 1956 Urine screening for protein Diabetes: Urine Protein Screening [facility] Start: 1949 Depression Screen Depression Screen [facility] Start: 1947 Diabetic foot examination Diabetes: Foot Exam [facility] Start: 1947 Glaucoma screening Diabetes: Retinopathy Screening [facility] Start: 1947 Meningococcal B Vaccine (1 of 4 - Increased Risk) Meningococcal B Vaccine (1 of 4 - Increased Risk) [facility] Start: 1939 Meningococcal Vaccine (1 - Risk 2-dose series) Meningococcal Vaccine (1 - Risk 2-dose series) [facility] Start: 06-22-1938 HIB Vaccines (1 of 1 - Risk 1-dose series) HIB Vaccines (1 of 1 - Risk 1-dose series) [facility] Start: 1937 Annual Wellness Visit (AWV) Annual Wellness Visit (AWV) [facility] Start: 1937 Lipid panel Lipid Panel [facility] Start: 1937 Medicare Annual Wellness Visit Medicare Annual Wellness Visit (AWV) [facility] Start: 1937 Screening for osteoporosis Bone Density Scan [facility] Basic Metabolic Pane l w/ Reflex to MG Basic Metabolic Panel w/ Reflex to MG Lab Routine Daily until discontinued starting 01/06/2022, 2 completed [facility] Phone: Comment on above: Daily until discontinued starting 2021, 2 completed CBC W Auto Different ial panel - Blood CBC with Auto Differential Lab Routine Daily until discontinued starting 01/03/2022, 5 completed [facility] Phone: Comment on above: Daily until discontinued starting 2021, 5 completed Glucose [Mass/volume ] in Serum or Plasma POCT Glucose Point of Care Testing STAT As Needed until discontinued starting 01/02/2022 [facility] Phone: Comment on above: As Needed until discontinued starting Glucose [Mass/volume ] in Serum or Plasma POCT glucose Point of Care Testing Routine Now Then Every 4hr until discontinued starting 01/03/2022 [facility] Phone: Comment on above: Now Then Every 4hr until discontinued st arting 01/03/2022 Glucose measurement estimated from glycated hemoglobin [facility] Helicobacter pylori Ag [Presence] in Stool by Immunoassay [facility] Oxygen therapy [[facility] Data Set] Initiate Oxygen Therapy Protocol Respiratory Care Routine As Needed until discontinued starting 01/02/2022 [facility] Phone: Comment on above: As Needed until discontinued starting Patient Education [facility] Work Phone: Patient referral [facility] Work Phone: Phosphate [Mass/volu me] in Serum or Plasma Phosphorus Lab Routine Daily until discontinued starting 01/06/2022, 2 completed [facility] Phone: Comment on above: Daily until discontinued starting 2021, 2 completed Spirometry panel Incentive carolyn metry Respiratory Care Routine Every 2hr while awake until discontinued starting 01/03/2022 [facility] Phone: Comment on above: Every 2hr while awake until discontinued starting 01/03/2022 XR Cervical spine 3 Views [facility] Payers Date Payer Category Payer Unknown [id number] 2023 Self-pay [id number] 2002 Medicare MEDICARE MEDICAR E PART A AND B [id number] 2002-Present [address] [place] [address] [id number]. [id number] 1959 Medicare [id number]. [id number] 1959 Unknown [id number] [id number].3. [id number] 1937 Unknown [id number] 2.16.840.1.206658.3.579.2.175 1937 Unknown [id number] 2.16.840.1.606974.3.579.2.593 1937 Unknown [id number] 2.16.840.1.974740.3.579.2.593 1937 Unknown [id number] 2.16.840.1.890257.3.579.2.593 1937 Unknown [id number] 2.16.840.1.547982.3.579.2.732 1937 Unknown [id number] 2.16.840.1.981614.3.579.2.1259 1937 Unknown [id number] 2.16.840.1.094553.3.579.2.1259 1937 Unknown [id number] 2.16.840.1.833685.3.579.2.1259 1937 Unknown [id number] 2.16.840.1.105940.3.579.2.1259 1937 Unknown [id number] 2.16.840.1.981572.3.579.2.718 1937 Unknown [id number] 2.16.840.1.646061.3.579.2.718 1937 Unknown [id number] 2.16.840.1.777752.3.579.2.718 1937 Unknown [id number] 2.16.840.1.802003.3.579.2.1244 1937 Unknown [id number] 2.16.840.1.394730.3.579.2.1244 1937 Unknown [id number] 2.16.840.1.244004.3.579.2.1244 Unknown [id number] 2.16.840.1.827592.3.579.2.531 Unknown [id number] 2.16.840.1.084060.3.579.2.531 Unknown [id number] 2.16.840.1.800808.3.579.2.531 Unknown [id number] 2.16.840.1.656640.3.579.2.531 Unknown [id number] 2.16.840.1.746034.3.579.2.531 Unknown [id number] 2.16.840.1.930797.3.579.2.531 Unknown [id number] 2.16.840.1.035365.3.579.2.531 Unknown [id number] 2.16.840.1.304290.3.579.2.531 Unknown [id number] 2.16.840.1.316015.3.579.2.531 Social History Date Type Detail Facility Start: 01-04-2022 End: 10-28-2023 Tobacco smoking status DCIS Ex-smoker [facility] End: 08-09-2022 History of tobacco use Cigarette Smoker [facility] Phone: Start: 01-04-2022 End: 08-16-2023 Tobacco use and exposure Smokeless tobacco non-user [facility] Phone: Start: 01-05-2022 Alcohol intake Ex-drinker (finding) [facility] Phone: Start: 1935 Sex Assigned At Not on file B ON [employer] Phone: Start: 12-24-2021 End: 08-16-2023 Exposure to SARS-CoV-2 (event) Not sure [facility] Start: 04-28-2023 End: 10-21-2023 Tobacco smoking status [facility] Current some day smoker [facility] Start: 1935 Sex Assigned At Male F [facility] Start: 05-25-2023 End: 08-16-2023 Sex Assigned At [facility] [employer] Other Start: 05-25-2023 End: 08-16-2023 Alcohol intake Current drinker of alcohol (finding) [facility] Work Phone: Start: 05-25-2023 End: 08-16-2023 Alcohol intake [facility] Work Phone: Start: 07-16-2023 End: 08-09-2022 Tobacco smoking status NHIS Smoker (finding) [facility] Medical Equipment Procedure Code Equipment Code Equipment Origin al Text Equipment Identifier Dates ORIF, hip Orthopaedic bone screw, non-bioabsorbable, non-sterile [id number] FDA Start: 04-30-2023 ORIF, hip Femur nail, sterile [id number] FDA Start: 04-30-2023 ORIF, hip Spiral blade [id number] FDA Start: 04-30-2023 CL STENT MARK FRONTIER 3.5 X 18 FDA Start: 07-16-2023 CL STENT MARK FRONTIER 3.5 X 18 FDA Start: 07-16-2023 Lancets Start: 09-05-2023 Pen Needle, Diab etic (Bd Ultra-Fine Marichuy Pen Needle) 32 gauge x 5/32 needle Start: 09-05-2023 CL STENT MARK FRONTIER 3.5 X 18 FDA Start: 07-16-2023 Lancets Start: 09-05-2023 Pen Needle, Diab etic (Bd Ultra-Fine Marichuy Pen Needle) 32 gauge x 5/32 needle Start: 09-05-2023 CL STENT MARK FRONTIER 3.5 X 18 FDA Start: 07-16-2023 Lancets Start: 09-05-2023 Pen Needle, Diab etic (Bd Ultra-Fine Marichuy Pen Needle) 32 gauge x 5/32 needle Start: 09-05-2023 CL STENT MARK FRONTIER 3.5 X 18 FDA Start: 07-16-2023 Lancets Start: 09-05-2023 Pen Needle, Diab etic (Bd Ultra-Fine Marichuy Pen Needle) 32 gauge x 5/32 needle Start: 09-05-2023 CL STENT MARK FRONTIER 3.5 X 18 FDA Start: 07-16-2023 Lancets Start: 09-05-2023 Pen Needle, Diab etic (Bd Ultra-Fine Marichuy Pen Needle) 32 gauge x 5/32 needle Start: 09-05-2023 Goals Date Patient Goal Desired Activity /State Functional Status Date Assessment Result Facility 09-06-2023 Functional status Patient is Pro gressing Toward Baseline [facility] Work Phone: 07-16-2023 Functional status Patient at Baseline [facility] Work Phone: 05-08-2023 Functional status Patient is Pro gressing Toward Baseline [facility] Work Phone: 05-03-2023 Functional status Patient is Pro gressing Toward Baseline [facility] Work Phone: 04-28-2023 Functional status Patient Not at Baseline [facility] Work Phone: Mental Status Date Assessment Result Facility 09-06-2023 Cognitive function Cognitive Sta tus Patient at Baseline [facility] Work Phone: 07-16-2023 Cognitive function Cognitive Sta tus Patient at Baseline [facility] Work Phone: 05-08-2023 Cognitive function Cognitive Sta tus Patient is Progressing Toward Baseline [facility] Work Phone: 05-03-2023 Cognitive function Cognitive Sta tus Patient is Progressing Toward Baseline [facility] Work Phone: 04-28-2023 Cognitive function Cognitive Sta tus Patient at Baseline [facility] Work Phone: Clinical Notes 01-07-2022 to 10-21-2023 Note Date & Type Note Facility 10-21-2023 Evaluation note Authored October 21, 2023 8:5 8am 88-year-old man with history of coronary artery disease s/p stent placement on 07/16/2023 who was recently hospitalized for melena s/p EGD with control of bleeding who came today for follow-up. 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 pylori, patient completed quadruple therapy, he has been on Protonix 40 mg twice daily since the EGD. -Will arrange for EGD to assess ulcer healing and to confirm H. pylori eradication. -I discussed with the patient possible Lewis's diagnosis and recommended EGD every 3 to 5 years. 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 He will follow up with primary Cardiology next week * Assessment & Plan Note - JAMIE Miramontes - 08/16/2023 2:37 PM EST Associated Problem(s): ASHD (arteriosclerotic heart disease) Jun 2023 [facility] presented due to mechanical fall. Incidental troponin elevations Echo EF 40-45% Cath: two-vessel disease; ef 40% anterior hypokinesis Elective PCI: Jul LAD: unsuccessful attempt - ADOBE FLEX DEVELOPER oDiag PCI/Mark 3.5 x 18mm Daily activity < 4 [facility]s [facility] Work Phone: 1(870) 142-826802-05-2024 Evaluation + Plan note* Assessment & Plan Note - JAMIE Miramontes - 08/16/2023 2:37 PM ESTAssociated Problem(s): ASHD (arteriosclerotic heart disease) Jun 2023 [facility] presented due to mechanical fall. Incidental troponin elevations Echo EF 40-45% Cath: two-vessel disease; ef 40% anterior hypokinesis Elective PCI: Jul LAD: unsuccessful attempt - ADOBE FLEX DEVELOPER oDiag PCI/[place] 3.5 x 18mm Daily activity < 4 METs [facility] Work Phone: 1([phone]) 401-702602-05-2024 History of Present illness Narrative* JAMIE Miramontes - 08/16/2023 2:00 PM EST Chief Complaint Have been real short of [...] 88-year-old gentleman who presents today for cardiology follow-up.His right radial cath site has healed without adverse sequela. He reports that approximately 1 weekago he has noted progressive worsening dyspnea on exertion with difficulty ambulating up his stairsat home, he also reports episodes of PND [...] been scheduled to date. Will be seeking POCfrom primary asbestos removal worker. Patient reports that overall has complaint(s) of [...] to Plavix. Will schedule follow-up with primary asbestos removal worker Dr. Perez next week. Review of Systems [...] Assessment: ASHD (arteriosclerotic heart disease) Jun 2023 [facility] presented due to mechanical fall. 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 He will follow up with primary Cardiology next week Plan: Through informed decision making process incorporating patients unique circumstances, the followingtreatment plan will be initiated: 1. Prescription drug [...] medications to the office Sammy Wolff MSN, HAND REAMER-WATER[employer] PUMP STATION OPERATOR, PMHNP-[facility] Please excuse any errors in grammar or translation related to this dictation. Voice recognition software was utilized to prepare this document. [facility]The [facility] Work Phone: 1(378) 809-430802-05-2024 Instructions* Patient Instructions* JAMIE Miramontes - 08/16/2023 2:00 PM EST [...] making process incorporating patients unique circumstances, the followingtreatment plan will be initiated: 1. Prescription drug [...] medications to the office documented in this encounterThe [facility] Hospital Work Phone: 1(544) 761-421701-05-2024 Discharge summary Author Federico Davis [facility] July 16, 2023 4:09pm Note Date/Time July 16, 2023 4: 06pm [facility] [address] [place] [address] Discharge Summary Signed Patient: Ashwini Vickers MR#: [id number] : 1935 Acct:[id number] Age/Sex: 88 / M Adm Date: 4 Loc: Room: Attending Dr: Federico Davis DO Copies to: Marie Castro,DO Federico Davis, DO~ Providers Date of Discharge: 07/16/23 Discharging Provider: Federico Davis Primary Care Provider: Marie Castro Discharge Diagnosis (1) Non-ST elevation myocardial infarction (NSTEMI), subendocardial infarction, subsequent episode of care: (2) Diabetes: (3) CAD (coronary artery disease): Final Diagnosis Final Discharge Diagnosis: 1. Recent non-ST elevation AZ associated with fall and hip fracture 2. Severe two-vessel ASHD involving mid LAD and diagonal branch bifurcation 3. Mild LV dysfunction 4. Successful PCI ostial diagonal branch into the LAD with 3.5 x 18 mm Mark stent 5. Chronic total occlusion proximal/mid LAD Summary Hospital Course Hospital course: 88-year-old gentleman with recent fall and hip fracture complicated by non-ST elevation AZ, abnormal stress imaging and subsequent diagnosis of severe two- vessel coronary artery disease involving mid LAD and large diagonal branch bifurcation. The LAD itself is subtotally occluded with the diagonal branch origin being 80 to 85%. Patient was referred for elective attempt at crossing the LAD with possible revascularization as well as revascularization of the ostial diagonal branch. LAD was attempted and deemed a ADOBE FLEX DEVELOPER and therefore aborted, diagonal branch was stented [...] % (Auto) 75.7, Lymph % (Auto) 8.4, [place] % (Auto) 15.1, Eos % (Auto) 0.3, Baso % (Auto) 0.5, Nucleat RBC Rel Count 0.1, Neut # (Auto) 6.3, Lymph # (Auto) 0.7 L, [place] # (Auto) 1.3 H, Eos # (Auto) [...] doctor or pharmacist, without first calling the asbestos removal worker who implanted the stent. If you require [...] weight lifting, stair steppers, etc. until the asbestos removal worker approves these activities. Check with the asbestos removal worker on your first follow-up visit. CALL YOUR PHYSICIAN at [phone]: -If bleeding should occur from the catheter insertion site- apply pressure to the site then immediately call us. -Report any fever, redness, drainage, increased swelling, or firmness at the catheter insertion site. Some bruising or slight swelling may be present at thetime of discharge. -Should arm or leg become cold, numb, white, or blue, contact the asbestos removal worker immediately. -IF you should experience episodes of [...] is recommended. Please call Central Scheduling at [phone] to schedule your appointment.] The attending asbestos removal worker or [facility] nurse clinician should provide you with specific instructions regarding activity, diet, medications, and further follow up for you. Follow the medication instructions provided on your discharge. If the dosages and instructions on this sheet differ from the dosage and instructions on the bottle, follow the instructions on the bottle. [facility] is not responsible for incorrect prescription information [...] 30 Days Qty: 30 0RF Follow Up: [facility] [Outside] - 08/16/23 2:00 pm Documented By: Federico Davis DO 07/16/23 1602 Signed By: <Electronically signed by Federico Davis DO> 07/16/23 1609 [facility] Work Phone: [phone]) 829-197001-05-2024 [facility] History of Present illness Narrative* Adrián Davis DO - 05/25/2023 1:00 PM EST Subjective Ashwini Vickers is a 88 y.o. male Chief Complaint Hospital Follow-up Seen in cardiology consultation at the request of Dr. Anat Perez for further evaluation and management in regards to coronary artery disease, recent non-ST elevation AZ with moderately reduced left ventricular dysfunction and [...] Future 3. NSTEMI (non-ST elevated myocardial infarction) ([facility]) - Follow Up In Cardiology; Future 4. Essential hypertension 5. Diabetes mellitus type II, non insulin dependent ([facility]) 6. Closed fracture of right hip, initial encounter ([facility]) documented in this encounterThe [facility] Hospital Work Phone: [phone]) 364-569711-14-2023 Instructions* Patient Instructions* Lori Pelayo LPN - [...] time of your visit. documented in this encounterThe [facility] Hospital Work Phone: [phone]) 445-831511-10-2023 Evaluation note* Encounter Date Diagnosis Assessment Notes Treatment Notes Treatment Clinical Notes May, Closed displaced intertrochanteric fracture of right femur, initial encounter (ICD-10 - S72.141A) Radiographs of right hip was reviewed with the patient today, along with a physical examination. Patient should continue with PT. Continue use of pain medication to control pain. [facility] Other 10-27-2023 Progress note Author Fredi Medrano [facility] May 07, 2023 12:48pm Note Date/Time May 07, 2023 1 2:36pm [facility] [address] [place] [address] Physiatry(Rehab) Progress Note Signed Patient: Ashwini Vickers MR#: [id number] : 1935 Acct:[id number] Age/Sex: 88 / M Adm Date: 3 Loc: Room: [address] [place] [address] Type: ADM IN Attending Dr: Fredi Medrano [...] in 40s. Patient was brought to [facility] ER where imaging demonstrated mildly [...] does not believe he has had an AZ and is planning on performing an intervention [...] mg 05/03/23 16:59 Bisacodyl 10 Mg Supp.Rect AL 05/02/24 16:58 DAILY PRN Constipation Calcium Carbonate [...] 16:59 Docusate Enema 283 Mg/5 Ml Enema AL 05/02/24 16:58 DAILY PRN Constipation Enoxaparin Sodium 40 mg 05/04/23 10:00 05/07/23 09:10 Enoxaparin 40 Mg/0.4 Ml Syringe SUBCUT 05/03/24 09:59 40 mg DAILY@1000 TAVIA Administration Ferrous Sulfate 324 mg 05/05/23 09:00 05/07/23 09:09 Ferrous Sulfate 324 Mg Tablet.Dr PO 05/04/24 [...] Code(s): I25.10 - Atherosclerotic heart disease of [place] tribe coronary artery without angina pectoris Status: Acute [...] Code(s): I25.10 - Atherosclerotic heart disease of [place] tribe coronary artery without angina pectoris Status: Acute (9) Postoperative pain, acute, hip: Code(s): G89.18 - Other acute postprocedural pain; M25.559 - Pain in unspecified hip Status: Acute Plan 88-year-old male presenting to acute inpatient rehabilitation unit with functional impairments secondary to right hip fracture s/p repair. Hospital course complicated by non-AZ troponin elevation. He was found to have [...] equipment to enhance the patient's a functional catholic Ensure adequate nutrition and hydration Sleep no issues Pain: Continue current regimen. Discharge planning Home with in 7 to 10 days. I spent greater than 15 minutes for services, including gswl-wp-huur encounter with the patient, discussion of the case, plan of care, and exam; and bicgwtu-dp-yfmw activities, such as reviewing pertinent operational risk consultant documentation, recent therapy notes, laboratory and radiology studies, and discussion of case with care team including physician, nursing, caseworker protective services, and therapists. More than 50 % of time was spent on patient/family counseling or coordination ofcare. Plan: I completed a substantive portion of this encounter, the medical decision makingportion of this note in its entirety, including Allied health note review, nursing note review, operational risk consultant note review, discussion with nursing and case management, and more than 50% of my time was spent on counseling and coordination of care, time spent 25 minutes Patient was personally seen by me, Dr. Medrano, on the day of encounter, reviewed the history and the relevant portions of the chart, including current orders, allied health and operational risk consultant notes, labs/imaging and performed smyth elements of exam and I formulated the plan of care and facilitated the medical decision making. Documented By: Fredi Medrano MD 1234 Signed By: <Electronically signed by Fredi Medrano MD> 05/07/[address] [facility] Work Phone: 1(647) 974-959110-26-2023 Progress note Author Fredi Medrano [facility] May 06, 2023 2:46pm Note Date/Time May 06, 2023 1 2:53pm [facility] [address] [place] [address] Physiatry(Rehab) Progress Note Signed Patient: Ashwini Vickers MR#: [id number] : 1935 Acct:[id number] Age/Sex: 88 / M Adm Date: 3 Loc: Room: [address] [place] [address] Type: ADM IN Attending Dr: Fredi Medrano MD Copies to: ~ <Teena Victoria APRN - Last Filed: 05/06/23 13:14> Date of Service: 05/06/2023 Subjective <Teena Victoria APRN - Last Filed: 05/06/23 13:14> Subjective Narrative: Mr. Vcikers is a 88 year old male with [...] in 40s. Patient was brought to [facility] ER where imaging demonstrated mildly [...] does not believe he has had an AZ and is planning on performing an intervention [...] mg 05/03/23 16:59 Bisacodyl 10 Mg Supp.Rect AL 05/02/24 16:58 DAILY PRN Constipation Calcium Carbonate [...] 16:59 Docusate Enema 283 Mg/5 Ml Enema AL 05/02/24 16:58 DAILY PRN Constipation Enoxaparin Sodium 40 mg 05/04/23 10:00 05/06/23 11:19 Enoxaparin 40 Mg/0.4 Ml Syringe SUBCUT 05/03/24 09:59 40 mg DAILY@1000 TAVIA Administration Ferrous Sulfate 324 mg 05/05/23 09:00 05/06/23 07:59 Ferrous Sulfate 324 Mg Tablet.Dr PO 05/04/24 08:59 324 mg DAILY TAVIA Administration Insulin Aspart 0 units 05/03/23 17:00 05/06/23 07:56 Insulin Aspart 300 Units/3 Ml Insuln.Pen SUBCUT 05/02/24 16:59 7 units TID.WITH.MEALS [facility] Administration Protocol Insulin Aspart 0 units 05/03/23 18:00 05/06/23 06:38 Insulin Aspart 300 Units/3 Ml Insuln.Pen SUBCUT 05/02/24 17:59 Not Given ACHS [facility] Protocol Insulin Glargine 7 units 05/03/23 21:00 [...] mg DAILY TAVIA Administration Assessment/Plan <Teena Victoria, HAND REAMER - Last Filed: 05/06/23 13:14> Assessment/Plan (1) Closed intertrochanteric fracture of right hip: Code(s): S72.141A - Displaced intertrochanteric fracture of right femur, initial encounter for closed fracture Status: Acute (2) CAD (coronary artery disease): Code(s): I25.10 - Atherosclerotic heart disease of [place] tribe coronary artery without angina pectoris Status: Acute [...] Code(s): I25.10 - Atherosclerotic heart disease of [place] tribe coronary artery without angina pectoris Status: Acute (9) Postoperative pain, acute, hip: Code(s): G89.18 - Other acute postprocedural pain; M25.559 - Pain in unspecified hip Status: Acute Plan 88-year-old male presenting to acute inpatient rehabilitation unit with functional impairments secondary to right hip fracture s/p repair. Hospital course complicated by non-AZ troponin elevation. He was found to have [...] equipment to enhance the patient's a functional catholic Ensure adequate nutrition and hydration Sleep no issues Pain: Continue current regimen. Discharge planning Home with in 7 to 10 days. I spent greater than 15 minutes for services, including whpm-ob-pskq encounter with the patient, discussion of the case, plan of care, and exam; and wuvvlze-nx-kwdc activities, such as reviewing pertinent operational risk consultant documentation, recent therapy notes, laboratory and radiology studies, and discussion of case with care team including physician, nursing, caseworker protective services, and therapists. More than 50 % of [...] the chart, including currentorders, allied health and operational risk consultant notes, labs/imaging and plan of care as above. Documented By: Teena Victoria APRN 05/06/23 1 250 Signed By: <Electronically signed by AMADA Victoria> 05/06/23 1314 <Electronically signed by Fredi Medrano MD> 05/06/[address] [facility] Work Phone: [phone] 133-472810-26-2023 Consult note Author Vidya Robert [facility] May 06, 2023 1:15pm Note Date/Time May 04, 2023 3 :49pm [facility] [address] [place] [address] Hospitalist Consult Note Signed Patient: Ashwini Vickers MR#: [id number] : 1935 Acct:[id number] Age/Sex: 88 / M Adm Date: 3 Loc: Room: 4J6254-6 Type: ADM IN Attending Dr: Fredi Medrano [...] negative unless noted below or in HPI [facility] Medical History (Updated 05/04/23 @ [...] Allergies Allergy (Verified 04/28/23 12:20) Home Medications fanedw-ugjulyss-ohkrodc 24,000-76,000-120,000 unit capsule,delayed rel (Creon) 2cap PO [...] mg 05/03/23 16:59 Bisacodyl 10 Mg Supp.Rect AL 05/02/24 16:58 DAILY PRN Constipation Calcium Carbonate [...] 16:59 Docusate Enema 283 Mg/5 Ml Enema AL 05/02/24 16:58 DAILY PRN Constipation Enoxaparin Sodium [...] % (Auto) 64.9, Lymph % (Auto) 23.0, [place] % (Auto) 9.9, Eos % (Auto) 1.5, Baso % (Auto) 0.7, Nucleat RBC Rel Count 0.2, Neut # (Auto) 4.6, Lymph # (Auto) 1.6, [place] # (Auto) 0.7, Eos # (Auto) 0.1, [...] By: <Electronically signed by AMADA Wright> 05/05/23 0850 <Electronically signed by Vidya Robert MD> 05/06/23 1315 [facility] Work Phone: 1(132) 378-200710-25-2023 Progress note Author Fredi Medrano [facility] May 05, 2023 1:10pm Note Date/Time May 05, 2023 1 :11pm [facility] [address] [place] [address] Physiatry(Rehab) Progress Note Signed Patient: Ashwini Vickers MR#: [id number] : 1935 Acct:[id number] Age/Sex: 88 / M Adm Date: 3 Loc: Room: [address] [place] [address] Type: ADM IN Attending Dr: Fredi Medrano [...] in 40s. Patient was brought to [facility] ER where imaging demonstrated mildly [...] does not believe he has had an AZ and is planning on performing an intervention [...] 08:00 05/05/23 11:35 Lipa/Prot/Amyla 24-76-120k [address] SUNSHINE 05/03/24 07:59 2 cap TID.WITH.MEALS TAVIA Administration [...] mg 05/03/23 16:59 Bisacodyl 10 Mg Supp.Rect AL 05/02/24 16:58 DAILY PRN Constipation Calcium Carbonate [...] 16:59 Docusate Enema 283 Mg/5 Ml Enema AL 05/02/24 16:58 DAILY PRN Constipation Enoxaparin Sodium 40 mg 05/04/23 10:00 05/05/23 09:19 Enoxaparin 40 Mg/0.4 Ml Syringe SUBCUT 05/03/24 09:59 40 mg DAILY@1000 TAVIA Administration Ferrous Sulfate 324 mg 05/05/23 09:00 05/05/23 09:17 Ferrous Sulfate 324 Mg Tablet. PO 05/04/24 [...] Code(s): I25.10 - Atherosclerotic heart disease of [place] tribe coronary artery without angina pectoris Status: Acute [...] Code(s): I25.10 - Atherosclerotic heart disease of [place] tribe coronary artery without angina pectoris Status: Acute (9) Postoperative pain, acute, hip: Code(s): G89.18 - Other acute postprocedural pain; M25.559 - Pain in unspecified hip Status: Acute Plan 88-year-old male presenting to acute inpatient rehabilitation unit with functional impairments secondary to right hip fracture s/p repair. Hospital course complicated by non-AZ troponin elevation. He was found to have [...] equipment to enhance the patient's a functional catholic Ensure adequate nutrition and hydration Sleep no issues Pain: Continue current regimen. Discharge planning Home with in 7 to 10 days. Plan: I completed a substantive portion of this encounter, the medical decision makingportion of this note in its entirety, including Allied health note review, nursing note review, operational risk consultant note review, discussion with nursing and case management, and more than 50% of my time was spent on counseling and coordination of care, time spent 25 minutes Patient was personally seen by me, Dr. Medrano, on the day of encounter, reviewed the history and the relevant portions of the chart, including current orders, allied health and operational risk consultant notes, labs/imaging and performed smyth elements of exam and I formulated the plan of care and facilitated the medical decision making. Documented By: Fredi Medrano MD 1308 Signed By: <Electronically signed by Fredi Medrano MD> 05/05/23 1310 [facility] Work Phone: 1([phone]) 134-170610-25-2023 History and physical note Author Fredi Medrano [facility] May 05, 2023 10:01am Note Date/Time May 04, 2023 1 1:35am [facility] [address] [place] [address] Physiatry (Rehab) H&P Signed Patient: Ashwini Vickers MR#: [id number] : 1935 Acct:[id number] Age/Sex: 88 / M Adm Date: 3 Loc: Room: [address] [place] [address] Type: ADM IN Attending Dr: Fredi Medrano MD Copies to: MD Teena Coyle APRN Robert J Vaschak,DO~ Date of Service: 05/04/2023 HPI The patient [...] in 40s. Patient was brought to [facility] ER where imaging demonstrated mildly [...] does not believe he has had an AZ and is planning on performing an intervention [...] two-story home. Does not use assistive devices. [facility] Medical History Anxiety and depression [...] 12:20) Home and Active Meds: Home Medications pisldr-bvyxxsss-wmhcjwd 24,000-76,000-120,000 unit capsule,delayed rel (Creon) 2cap PO [...] Reason: Indigestion Stop: 05/02/24 16:58 Lipase/Protease/Amylase (Lipa/Prot/Amyla 24-76-120k 1 Cap Capsule.) 2 cap PO TID.WITH.MEALS TAVIA Stop: 05/03/24 07:59 Last Admin: 05/04/23 08:18 Dose: 2 cap Ascorbic Acid (Ascorbic Acid 500 Mg Tablet) 500 mg PO DAILY TAVIA Stop: 05/03/24 08:59 Last Admin: 05/04/23 08:10 Dose: 500 mg Aspirin (Aspirin 81 Mg Tablet.) 81 mg PO DAILY TAVIA Stop: 05/03/24 08:59 Last Admin: 05/04/23 08:10 Dose: 81 mg Atorvastatin Calcium (Atorvastatin 80 Mg Tablet) 80 mg PO QPM TAVIA Stop: 05/02/24 20:59 Last Admin: 05/03/23 21:13 Dose: 80 mg Bisacodyl (Bisacodyl 10 Mg Supp.Rect) 10 mg AL DAILY PRN PRN Reason: Constipation Stop: 05/02/24 16:58 Calcium Carbonate (Calcium Carbonate/Vitamin D3 500 Mg/200 Unit Tablet) 1 tab PO TID.WITH.MEALS TAVIA Stop: 05/03/24 07:59 Last Admin: 05/04/23 08:10 Dose: 1 tab Cyclobenzaprine HCl (Cyclobenzaprine 5 Mg Tablet) 5 mg PO Q8H PRN PRN Reason: Muscle Spasm Stop: 05/03/24 10:29 Docusate Sodium (Docusate 100 Mg Capsule) 100 mg PO BID PRN PRN Reason: Constipation Stop: 05/02/24 16:58 Docusate Sodium (Docusate Enema 283 Mg/5 Ml Enema) 283 mg AL DAILY PRN PRN Reason: Constipation Stop: 05/02/24 16:58 Enoxaparin Sodium (Enoxaparin 40 Mg/0.4 Ml Syringe) 40 mg SUBCUT DAILY@1000 TAVIA Stop: 05/03/24 09:59 Insulin Aspart (Insulin Aspart 300 Units/3 Ml Insuln.Pen) 0 units SUBCUT TID.WITH.MEALS [facility]; Protocol Stop: 05/02/24 16:59 Last Admin: 05/04/23 08:27 Dose: 7 units Insulin Aspart (Insulin Aspart 300 Units/3 Ml Insuln.Pen) 0 units SUBCUT ACHS [facility]; Protocol Stop: 05/02/24 17:59 Last Admin: 05/04/23 08:27 Dose: 1 units Insulin Glargine (Insulin Glargine 300 Units/3 Ml Insuln.Pen) 7 units SUBCUT BID [facility] Stop: 05/02/24 20:59 Last Admin: 05/04/23 08:16 [...] Tablet) 30 mg PO DAILY [facility] Stop: 05/03/24 08:59 Last Admin: 05/04/23 08:10 Dose: 30 mg Sennosides (Sennosides 8.6 Mg Tablet) 2 tab PO DAILY@12 PRN PRN Reason: If no BM in 2 days Stop: 05/03/24 11:59 Sodium Chloride (Sodium Chloride 0.9 % 10 Ml Syringe) 0 ml IV-PUSH PRN PRN PRN Reason: Flush Stop: 05/02/24 16:58 Tamsulosin HCl (Tamsulosin 0.4 Mg Cap.Er.24h) 0.4 mg PO DAILY [facility] Stop: 05/03/24 08:59 Last Admin: 05/04/23 08:10 Dose: 0.4 mg Triamcinolone Acetonide (Triamcinolone 0.1% Cream 15 Gm Tube) 1 applic TOPICAL QID PRN PRN Reason: Irritation Stop: 05/02/24 17:10 Valsartan (Valsartan 80 Mg Tablet) 80 mg PO DAILY [facility] Stop: 05/03/24 08:59 Last Admin: 05/04/23 08:10 [...] % (Auto) 64.9 Lymph % (Auto) 23.0 [place] % (Auto) 9.9 Eos % (Auto) 1.5 Baso % (Auto) 0.7 Nucleat RBC Rel Count 0.2 Neut # (Auto) 4.6 Lymph # (Auto) 1.6 [place] # (Auto) 0.7 Eos # (Auto) 0.1 [...] MPV Neut % (Auto) Lymph % (Auto) [place] % (Auto) Eos % (Auto) Baso % (Auto) Nucleat RBC Rel Count Neut # (Auto) Lymph # (Auto) [place] # (Auto) Eos # (Auto) Baso # [...] 14 Days Expected Discharge Destination: Home Rehabilitation IGC: 8.11 Primary Diagnosis: as above Patient?s/Family?s anticipated [...] 24 hour daily monitoring and intervention from [facility] [place] as well as other consulting physicians including internal medicine as well as 24 hour daily nail expert nursing - for medical safe / optimal [...] Code(s): I25.10 - Atherosclerotic heart disease of [place] tribe coronary artery without angina pectoris Status: Acute [...] Code(s): I25.10 - Atherosclerotic heart disease of [place] tribe coronary artery without angina pectoris Status: Acute (9) Postoperative pain, acute, hip: Code(s): G89.18 - Other acute postprocedural pain; M25.559 - Pain in unspecified hip Status: Acute Plan 88-year-old male presenting to acute inpatient rehabilitation unit with functional impairments secondary to right hip fracture s/p repair. Hospital course complicated by non-AZ troponin elevation. He was found to have [...] equipment to enhance the patient's a functional catholic Ensure adequate nutrition and hydration Sleep no issues Pain: Continue current regimen. Discharge planning Home with in 7 to 10 days. I spent greater than 45 minutes for services, including vohc-tb-smun encounter with the patient, discussion of the case, plan of care, and exam; and ebugzim-ug-pwxf activities, such as reviewing pertinent operational risk consultant documentation, recent therapy notes, laboratory and radiology studies, and discussion of case with care team including physician, nursing, caseworker protective services, and therapists. More than 50 % of time was spent on patient/family counseling or coordination ofcare. Plan: I completed a substantive portion of this encounter, the medical decision makingportion of this note in its entirety, including Allied health note review, nursing note review, operational risk consultant note review, discussion with nursing and case management, and more than 50% of my time was spent on counseling and coordination of care, time spent 70 minutes Patient was personally seen by me, Dr. Medrano, on the day of encounter, within 24 hours of rehab admission, reviewed the history and the relevant portions of the chart, including current orders, allied health and operational risk consultant notes, labs/imaging and performed smyth elements of exam and I formulated the planof care and facilitated the medical decision making. Documented By: Teena Victoria APRN 05/04/23 1 122 Signed By: <Electronically signed by AMADA Victoria> 05/04/23 1209 <Electronically signed by Fredi Medrano MD> 05/05/23 1001 [facility] Work Phone: 1([phone]) 244-499910-23-2023 Progress note [facility] May 03, 2023 12:02pm Note Date/Time May 03, 2023 1 1:49am [facility] [address] [place] [address] Orthopedic Progress Note Signed Patient: Ashwini Vickers MR#: [id number] : 1935 Acct:[id number] Age/Sex: 88 / M Adm Date: 3 Loc: 4N Room: [address] [place] [address] Type: ADM IN Attending Dr: Humberto Diaz [...] Code(s): I25.10 - Atherosclerotic heart disease of [place] coronary artery without angina pectoris Status: Acute [...] signed by Ashwini Conrad MD> 05/03/23 1202 [facility] Work Phone: 1(309) 576-191810-22-2023 Progress note Author Sushant Cordon [facility] May 02, 2023 2:35pm Note Date/Time May 02, 2023 2 :35pm [facility] [address] [place] [address] Hospitalist Progress Note Signed Patient: Ashwini Vickers MR#: [id number] : 1935 Acct:[id number] Age/Sex: 88 / M Adm Date: 3 Loc: Room: [address] [place] [address] Type: ADM IN Attending Dr: Sushant Cordon [...] mg 04/28/23 17:19 Bisacodyl 10 Mg Supp.Rect AL 04/27/24 17:18 DAILY PRN Constipation Calcium Carbonate [...] Insuln.Pen SUBCUT 05/01/24 16:59 TID.WITH.MEALS [facility] Protocol Insulin Glargine 7 units 05/01/23 21:00 [...] <Electronically signed by Sushant Cordon DO> 05/02/23 9237 [facility] Work Phone: 1([phone]) 883-391310-22-2023 Progress note Author Ashwini Conrad [facility] May 02, 2023 2:12pm Note Date/Time May 02, 2023 2 :12pm [facility] [address] [place], [place] [address] Orthopedic Progress Note Signed Patient: Ashwini Vickers MR#: [id number] : 1935 Acct:[id number] Age/Sex: 88 / M Adm Date: 3 Loc: 4N Room: [address] [place] [address] Type: ADM IN Attending Dr: Sushant Cordon [...] Labs: Laboratory Results - last 24 hr 1005/01/23 05/02/23 16:59 20:44 04:18 Corrected WBC Uncorrected WBC Count RBC Hgb Hct MCV MCH MCHC RDW Plt Count MPV Neut % (Auto) Lymph % (Auto) [place] % (Auto) Eos % (Auto) Baso % (Auto) Nucleat RBC Rel Count Neut # (Auto) Lymph # (Auto) [place] # (Auto) Eos # (Auto) Baso # [...] % (Auto) 71.9 Lymph % (Auto) 13.7 [place] % (Auto) 13.5 Eos % (Auto) 0.8 Baso % (Auto) 0.1 Nucleat RBC Rel Count 0.0 Neut # (Auto) 6.2 Lymph # (Auto) 1.2 [place] # (Auto) 1.2 H Eos # (Auto) [...] MPV Neut % (Auto) Lymph % (Auto) [place] % (Auto) Eos % (Auto) Baso % (Auto) Nucleat RBC Rel Count Neut # (Auto) Lymph # (Auto) [place] # (Auto) Eos # (Auto) Baso # (Auto) PHA Creatinine Clear Sodium Potassium Chloride Carbon Dioxide Anion Gap BUN Creatinine Est GFR (CKD-EPI) Glucose POC Glucose 376 POC Glucose Comment Calcium Triglycerides Cholesterol LDL Cholesterol, Calc VLDL Cholesterol HDL Cholesterol Cholesterol/HDL Ratio Assessment / Plan Assessment and plan (1) Two-vessel coronary artery disease: Code(s): I25.10 - Atherosclerotic heart disease of [place] tribe coronary artery without angina pectoris Status: Acute [...] signed by Ashwini Conrad MD> 05/02/[address] [facility] Work Phone: [phone] 872-965910-22-2023 Progress note Author Harsh Del Valle [facility] May 02, 2023 10:49am Note Date/Time May 02, 2023 1 0:49am [facility] [address] [place] [address] Cardiology Progress Note Signed Patient: Ashwini Vickers MR#: [id number] : 1935 Acct:[id number] Age/Sex: 88 / M Adm Date: 3 Loc: 4N Room: [id number] Type: ADM IN Attending Dr: Sushant Cordon [...] is to be determined by her primary asbestos removal worker and Dr. Davis Exam Physical Exam Vital [...] MPV Neut % (Auto) Lymph % (Auto) [place] % (Auto) Eos % (Auto) Baso % (Auto) Nucleat RBC Rel Count Neut # (Auto) Lymph # (Auto) [place] # (Auto) Eos # (Auto) Baso # [...] % (Auto) 71.9 Lymph % (Auto) 13.7 [place] % (Auto) 13.5 Eos % (Auto) 0.8 Baso % (Auto) 0.1 Nucleat RBC Rel Count 0.0 Neut # (Auto) 6.2 Lymph # (Auto) 1.2 [place] # (Auto) 1.2 H Eos # (Auto) [...] MPV Neut % (Auto) Lymph % (Auto) [place] % (Auto) Eos % (Auto) Baso % (Auto) Nucleat RBC Rel Count Neut # (Auto) Lymph # (Auto) [place] # (Auto) Eos # (Auto) Baso # [...] Code(s): I25.10 - Atherosclerotic heart disease of [place] coronary artery without angina pectoris Status: Acute [...] Documented By: Harsh Del Valle MD, [facility] 3 1047 Signed By: <Electronically signed by MD JOAO Del Valle> 05/02/23 1049 [facility] Work Phone: 1(533) 869-299810-21-2023 Progress note Author Sushant Cordon [facility] May 01, 2023 3:13pm Note Date/Time May 01, 2023 3 :09pm [facility] [address] [place] [address] Hospitalist Progress Note Signed Patient: Ashwini Vickers MR#: [id number] : 1935 Acct:[id number] Age/Sex: 88 / M Adm Date: 3 Loc: 4 Room: [address] [place] [address] Type: ADM IN Attending Dr: Sushant Cordon [...] mg 04/28/23 17:19 Bisacodyl 10 Mg Supp.Rect AL 04/27/24 17:18 DAILY PRN Constipation Calcium Carbonate [...] Syringe SUBCUT 04/30/24 09:59 40 mg DAILY@1000 [facility] Administration Glucose 0 gm 04/28/23 17:14 04/30/23 08:42 Dextrose 40% Gel 15 Gm Tube PO 04/27/24 17:13 15 gm PRN PRN Administration Hypoglycemia Hydromorphone HCl 1 mg 04/28/23 17:19 05/01/23 14:16 Hydromorphone 1 Mg/Ml Syringe IV-PUSH 1 mg Q4H PRN Administration Pain Insulin Aspart 0 units 04/28/23 22:00 05/01/23 12:00 Insulin Aspart 300 Units/3 Ml Insuln.Pen SUBCUT 04/27/24 21:59 Not Given TID.WM.HS [facility] Protocol Insulin Glargine 7 units 05/01/23 21:00 Insulin Glargine 300 Units/3 Ml Insuln.Pen SUBCUT 04/30/24 20:59 BID [facility] Lidocaine HCl 0.1 ml 04/29/23 01:31 Lidocaine [...] at baseline. Documented By: Sushant Cordon DO 7867 Signed By: <Electronically signed by Sushant Cordon, DO> 05/01/[address] [facility] Work Phone: 1([phone]) 680-943010-21-2023 Progress note Author Harsh Del Valle [facility] May 01, 2023 12:24pm Note Date/Time May 01, 2023 1 2:21pm [facility] [address] [place] [address] Cardiology Progress Note Signed Patient: Ashwini Vickers MR#: [id number] : 1935 Acct:[id number] Age/Sex: 88 / M Adm Date: 3 Loc: Room: [address] [place] [address] Type: ADM IN Attending Dr: Sushant Cordon [...] MPV Neut % (Auto) Lymph % (Auto) [place] % (Auto) Eos % (Auto) Baso % (Auto) Nucleat RBC Rel Count Neut # (Auto) Lymph # (Auto) [place] # (Auto) Eos # (Auto) Baso # [...] MPV Neut % (Auto) Lymph % (Auto) [place] % (Auto) Eos % (Auto) Baso % (Auto) Nucleat RBC Rel Count Neut # (Auto) Lymph # (Auto) [place] # (Auto) Eos # (Auto) Baso # [...] MPV Neut % (Auto) Lymph % (Auto) [place] % (Auto) Eos % (Auto) Baso % (Auto) Nucleat RBC Rel Count Neut # (Auto) Lymph # (Auto) [place] # (Auto) Eos # (Auto) Baso # [...] MPV Neut % (Auto) Lymph % (Auto) [place] % (Auto) Eos % (Auto) Baso % (Auto) Nucleat RBC Rel Count Neut # (Auto) Lymph # (Auto) [place] # (Auto) Eos # (Auto) Baso # [...] % (Auto) 68.2 Lymph % (Auto) 16.8 [place] % (Auto) 14.1 Eos % (Auto) 0.6 Baso % (Auto) 0.3 Nucleat RBC Rel Count 0.1 Neut # (Auto) 6.0 Lymph # (Auto) 1.5 [place] # (Auto) 1.2 H Eos # (Auto) [...] MPV Neut % (Auto) Lymph % (Auto) [place] % (Auto) Eos % (Auto) Baso % (Auto) Nucleat RBC Rel Count Neut # (Auto) Lymph # (Auto) [place] # (Auto) Eos # (Auto) Baso # [...] Code(s): I25.10 - Atherosclerotic heart disease of [place] coronary artery without angina pectoris Status: Acute [...] Documented By: Harsh Del Valle MD, [facility] 3 1220 Signed By: <Electronically signed by MD JOAO Del Valle> 05/01/[address] [facility] Work Phone: [phone]) [phone] Progress note Author Ashwini Conrad [facility] May 01, 2023 11:31am Note Date/Time May 01, 2023 1 1:31am [facility] [address] [place], [place] [address] Orthopedic Progress Note Signed Patient: Ashwini Vickers MR#: [id number] : 1935 Acct:[id number] Age/Sex: 88 / M Adm Date: 3 Loc: 4N Room: [id number] Type: ADM IN Attending Dr: Sushant Cordon [...] % (Auto) 79.2 Lymph % (Auto) 5.9 [place] % (Auto) 14.6 Eos % (Auto) 0.0 Baso % (Auto) 0.3 Nucleat RBC Rel Count 0.1 Neut # (Auto) 7.4 Lymph # (Auto) 0.6 L [place] # (Auto) 1.4 H Eos # (Auto) [...] MPV Neut % (Auto) Lymph % (Auto) [place] % (Auto) Eos % (Auto) Baso % (Auto) Nucleat RBC Rel Count Neut # (Auto) Lymph # (Auto) [place] # (Auto) Eos # (Auto) Baso # [...] MPV Neut % (Auto) Lymph % (Auto) [place] % (Auto) Eos % (Auto) Baso % (Auto) Nucleat RBC Rel Count Neut # (Auto) Lymph # (Auto) [place] # (Auto) Eos # (Auto) Baso # [...] MPV Neut % (Auto) Lymph % (Auto) [place] % (Auto) Eos % (Auto) Baso % (Auto) Nucleat RBC Rel Count Neut # (Auto) Lymph # (Auto) [place] # (Auto) Eos # (Auto) Baso # [...] MPV Neut % (Auto) Lymph % (Auto) [place] % (Auto) Eos % (Auto) Baso % (Auto) Nucleat RBC Rel Count Neut # (Auto) Lymph # (Auto) [place] # (Auto) Eos # (Auto) Baso # [...] % (Auto) 68.2 Lymph % (Auto) 16.8 [place] % (Auto) 14.1 Eos % (Auto) 0.6 Baso % (Auto) 0.3 Nucleat RBC Rel Count 0.1 Neut # (Auto) 6.0 Lymph # (Auto) 1.5 [place] # (Auto) 1.2 H Eos # (Auto) [...] MPV Neut % (Auto) Lymph % (Auto) [place] % (Auto) Eos % (Auto) Baso % (Auto) Nucleat RBC Rel Count Neut # (Auto) Lymph # (Auto) [place] # (Auto) Eos # (Auto) Baso # [...] Code(s): I25.10 - Atherosclerotic heart disease of [place] tribe coronary artery without angina pectoris Status: Acute [...] signed by Ashwini Conrad MD> 05/01/23 1131 [facility] Work Phone: 1([phone]) 218-690410-20-2023 Progress note Author Sushant Cordon [facility] April 30, 2023 9:13pm Note Date/Time April 30, 2023 9 :13pm [facility] [address] [place] [address] Hospitalist Progress Note Signed Patient: Ashwini Vickers MR#: [id number] : 1935 Acct:[id number] Age/Sex: 88 / M Adm Date: 3 Loc: 4N Room: [id number] Type: ADM IN Attending Dr: Sushant Cordon [...] mg 04/28/23 17:19 Bisacodyl 10 Mg Supp.Rect AL 04/27/24 17:18 DAILY PRN Constipation Calcium Carbonate [...] Mg/0.4 Ml Syringe SUBCUT 04/30/24 09:59 DAILY@1000 [facility] Glucose 0 gm 04/28/23 17:14 04/30/23 08:42 [...] Lactated Ringers IV 04/29/24 16:44 Not Given .[id number] [facility] Cefazolin Sodium 1 gm in 50 [...] <Electronically signed by Sushant Cordon DO> 04/30/232112 [facility] Work Phone: 1(648) 646-102810-20-2023 Hospital Discharge instructions Additional Instructions Rehab to [...] high armed straight-backed chair. -May use toilet american sign language interpreter on commode. -Continue to use walker or [...] OTHER -Any problems- Call the office at [phone] or return to Emergency Room. -If you are having excessive or persistent pain, swelling, fever (oral temp >101), yellow-green foul smelling drainage or bleeding from incision, excessive redness of incision, nausea, vomiting, or any other problems, you should first call your surgeon at [phone] for advice. If you are unable to contact your surgeon, seek help from a hospital emergency room. FOLLOW UP -Call my office the first business day after discharge and ask for assistance with post-discharge plans, and appointments.[facility] Work Phone: 1(251) 545-761610-20-2023 Progress note Author Anat Perez [facility] April 30, 2023 10:32am Note Date/Time April 30, 2023 1 0:32am [facility] [address] [place] [address] Cardiology Progress Note Signed Patient: Ashwini Vickers MR#: [id number] : 1935 Acct:[id number] Age/Sex: 88 / M Adm Date: 3 Loc: 4N Room: [address] [place] [address] Type: ADM IN Attending Dr: Sushant Cordon [...] events overnight. Denies chest pain or dyspnea. [facility] scheduled for this AM (findings as [...] MPV Neut % (Auto) Lymph % (Auto) [place] % (Auto) Eos % (Auto) Baso % (Auto) Nucleat RBC Rel Count Neut # (Auto) Lymph # (Auto) [place] # (Auto) Eos # (Auto) Baso # [...] MPV Neut % (Auto) Lymph % (Auto) [place] % (Auto) Eos % (Auto) Baso % (Auto) Nucleat RBC Rel Count Neut # (Auto) Lymph # (Auto) [place] # (Auto) Eos # (Auto) Baso # [...] % (Auto) 60.6 Lymph % (Auto) 22.0 [place] % (Auto) 16.4 Eos % (Auto) 0.6 Baso % (Auto) 0.4 Nucleat RBC Rel Count 0.1 Neut # (Auto) 5.4 Lymph # (Auto) 2.0 [place] # (Auto) 1.5 H Eos # (Auto) [...] MPV Neut % (Auto) Lymph % (Auto) [place] % (Auto) Eos % (Auto) Baso % (Auto) Nucleat RBC Rel Count Neut # (Auto) Lymph # (Auto) [place] # (Auto) Eos # (Auto) Baso # [...] MPV Neut % (Auto) Lymph % (Auto) [place] % (Auto) Eos % (Auto) Baso % (Auto) Nucleat RBC Rel Count Neut # (Auto) Lymph # (Auto) [place] # (Auto) Eos # (Auto) Baso # [...] Dizziness/syncope due to recurrent hypoglycemia Recommendations: - C this am is significant for two-vessel coronary artery disease- 100% prox LAD occlusion; 80% D1; LCx has 50% prox stenosis with 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 - Discussed with offset lithographic press setter- Dr Davis regarding timing of intervention- given that pt did not have AZ on presentation and was very functional prior [...] signed by Anat Perez MD> 04/30/[address] [facility] Work Phone: [phone] [facility] Progress note Author Sushant Cordon [facility] April 29, 2023 6:28pm Note Date/Time April 29, 2023 6 :28pm [facility] [address] [place] [address] Hospitalist Progress Note Signed Patient: Ashwini Vickers MR#: [id number] : 1935 Acct:[id number] Age/Sex: 88 / M Adm Date: 3 Loc: 4N Room: [address] [place] [address] Type: ADM IN Attending Dr: Sushant Cordon [...] 08:00 04/29/23 17:15 Lipa/Prot/Amyla 24-76-120k 1 Cap Capsule. PO 04/28/24 07:59 2 cap TID.WITH.MEALS [facility] Administration Ascorbic Acid 500 mg 04/29/23 09:00 04/29/23 08:57 Ascorbic Acid 500 Mg Tablet PO 04/28/24 08:59 Not Given DAILY [facility] Bisacodyl 10 mg 04/28/23 17:19 Bisacodyl 5 Mg Tablet. PO 04/27/24 17:18 DAILY PRN Constipation Bisacodyl 10 mg 04/28/23 17:19 Bisacodyl 10 Mg Supp.Rect AL 04/27/24 17:18 DAILY PRN Constipation Calcium Carbonate [...] Dextrose-Lactated Ringers IV 04/27/24 17:14 125 mls/hr .[id number] [facility] Administration Lactated Ringer's 1,000 mls @ [...] level 2. Documented By: Sushant Cordon DO 1824 Signed By: <Electronically signed by Sushant Cordon DO> 04/29/231827 [facility] Work Phone: [phone] 214-167310-19-2023 Consult note Author Anat Perez [facility] April 29, 2023 5:34pm Note Date/Time April 29, 2023 5 :07pm [facility] [address] [place] [address] Cardiology Consult Note Signed Patient: Ashwini Vickers MR#: [id number] : 1935 Acct:[id number] Age/Sex: 88 / M Adm Date: 3 Loc: 4N Room: [id number] Type: ADM IN Attending Dr: Sushant Cordon [...] negative unless noted below or in HPI [facility] Medical History (Updated 04/29/23 @ [...] unit subcut HS 04/28/23 [History Confirmed 04/28/23] yfavdb-mtpfpiih-cnlkble 24,000-76,000-120,000 unit capsule,delayed rel (Creon) 2cap PO [...] x10E3/uL Lymph # (Auto) 2.0 (1.00-4.8) x10E3/uL [place] # (Auto) 1.1 H (0.0-0.8) x10E3/uL Eos [...] @ 125 mls/hr IV .Q8H [facility] Rx#:[id number] Oral 0 / 0 0 / 0 [...] disease) prior to surgery. -Will plan for [facility] tomorrow for further evaluation/risk stratification. NPO past midnight. Documented By: Anat Perez MD 04/29/231703 Signed By: <Electronically signed by Anat Perez MD> 04/29/231 [facility] Work Phone: 1(223) 104-808710-18-2023 Consult note Author Aswhini Conrad [facility] April 28, 2023 6:47pm Note Date/Time April 28, 2023 6 :43pm [facility] [address] [place] [address] Orthopedic Consult Note Signed Patient: Ashwini Vickers MR#: [id number] : 1935 Acct:[id number] Age/Sex: 88 / M Adm Date: 3 Loc: N Room: [address] [place] [address] Type: ADM IN Attending Dr: Sushant Cordon DO Copies to: MD Sushant Carlos DO Robert J Vaschak,DO~ History of Present Illness HPI Consult date: [...] negative unless noted below or in HPI [facility] Medical History (Updated 04/28/23 @ [...] unit subcut HS 04/28/23 [History Confirmed 04/28/23] ytxbpt-lmacmcsr-prvjgbh 24,000-76,000-120,000 unit capsule,delayed rel (Creon) 2cap PO [...] Appearance Clear, Urine pH 6.5, Ur Specific [place] 1.009, Urine Protein Negative, Urine Glucose (UA) [...] % (Auto) 75.0, Lymph % (Auto) 14.8, [place] % (Auto) 9.3, Eos % (Auto) 0.5, Baso % (Auto) 0.4, Nucleat RBC Rel Count 0.1, Neut # (Auto) 7.3, Lymph # (Auto) 1.4, [place] # (Auto) 0.9 H, Eos # (Auto) 0.0, Baso # (Auto) 0.0, Monocyte Dist Width 18.61 H & H 04/28/23 Range/Units 13:20 Hgb 11.5 L (13.0-17.0) g/dL Hct 34.8 L (38.8-50.0) % Coagulation 04/28/23 Range/Units 13:20 INR 1.0 All other labs are normal. Imaging & Diagnostic Results Imaging/Diagnostics: XRAY ([facility] 04/28/2023) Right FEMUR/RIGHT HIP/PELVIS: AP of the [...] By: <Electronically signed by Ashwini Conrad MD> 04/28/231846 [facility] Work Phone: 1([phone]) 406-956810-18-2023 History and physical note Author Sushant Cordon [facility] April 28, 2023 5:40pm Note Date/Time April 28, 2023 5 :40pm [facility] [address] [place] [address] Hospitalist H&P Signed Patient: Ashwini Vickers MR#: [id number] : 1935 Acct:[id number] Age/Sex: 88 / M Adm Date: 3 Loc: 4N Room: [address] [place] [address] Type: ADM IN Attending Dr: Sushant Cordon [...] 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 This was done [...] had what sounds like an EGD in [place] about 15 months ago with what sounds like some gastritis. Otherwise his past medical history seems to include prostate hypertrophy. Social history: He does smoke a cigar daily after dinner. In the past he smoked0.25 of a pack per day of cigarettes. He does drink wine daily with dinner. Heis mainly retired from [employer] here in [place]. He has continued to do other jobsever since his prison. Family history: A sister of an unspecified cancer. Another sibling ofwhat sounds like acute leukemia. Review of Systems Review of Systems Review of systems: 10 systems are reviewed and are negative except as mentioned elsewhere in the documentation. [facility] Medical History (Updated 04/28/23 @ [...] unit subcut HS 04/28/23 [History Confirmed 04/28/23] tsvgan-bmodguga-dxpecom 24,000-76,000-120,000 unit capsule,delayed rel (Creon) 2cap PO [...] % (Auto) 14.8 % (.) 04/28/23 13:20 [place] % (Auto) 9.3 % (.) 04/28/23 13:20 Eos % (Auto) 0.5 % (.) 04/28/23 13:20 Baso % (Auto) 0.4 % (.) 04/28/23 13:20 Nucleat RBC Rel Count 0.1 /100 WBC (0-0.5) 04/28/23 13:20 Neut # (Auto) 7.3 x10E3/uL (1.8-7.7) 04/28/23 13:20 Lymph # (Auto) 1.4 x10E3/uL (1.00-4.8) 04/28/23 13:20 [place] # (Auto) 0.9 x10E3/uL (0.0-0.8) H 04/28/23 [...] pH 6.5 (5.0-9.0) 04/28/23 15:00 Ur Specific [place] 1.009 (1.001-1.030) 04/28/23 15:00 Urine Protein Negative [...] did order an echocardiogram but the 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 Work Phone: 1([phone]) 156-296810-01-2023 Chief complaint+Reason for visit Narrative * Chief Complaint GI Bleed Fall GI Bleed Fall GI Bleed Fall GI Bleed Fall c spine fx nick,gi ulcer referral cervical follow up seen in pt/egd.lewis's esophagus 04/2023 Hospital dc Cath/PCI Reason for Visit CAD (coronary artery disease) Fracture of C5 vertebra, closed Vertebral fracture, closed Barretts esophagus H pylori ulcer Helicobacter pylori (H. pylori) Barretts esophagus CAD (coronary artery disease) H pylori ulcer Helicobacter pylori (H. pylori) Hypertension [id number] Stomach ulcer [facility] Work Phone: 1(320) 420-313706-29-2022 History of Present illness Narrative* Courtney Singh - 01/07/2022 12:25 PM EDT CLINICAL PHARMACY NOTE: MEDS TO BEDS Total # of Prescriptions Filled: 3 The following medications were delivered to the patient: Sucralfate susp Amlodipine Pantoprazole Additional Documentation: Pharmacy dispensed all we had of the Sucralfate susp- will transfer the rest to the [facility] in [place], [place] $8.61 collected via [employer] * Jose Roberto Peñaloza MD - 01/06/2022 [...] cc home pump insulin PT/OT SUBJECTIVE Ashwini Kaley seen and examined at bedside. resting comfortably, pain controlled. Having bowel movements OBJECTIVE VITALS: Temp: Temp: 98.8 F (37.1 C)Temp Av.2 F (36.8 C) Min: 97.9 F (36.6 C) Max: 98.8 F (37.1C) BP Systolic (24hrs), Av , Min:126 , [...] diet. Jose Roberto Peñaloza MD * Tj Kate DO - 01/06/2022 7:30 AM EDT Bariatric [...] home pump insulin 11. PT/OT SUBJECTIVE Ashwini Kaley seen and examined at bedside. AF, htn [...] 292 245 BMP: Recent Labs 01/03/22 1436 01/03/22205801/04/22 0150 NA 136 135 136 K 3.9 4.2 4.5 CL 103 102 104 CO2 21 21 21 BUN 28* 29* 29* CREATININE 0.93 0.88 0.83 GLUCOSE 155* 74 71 COAGS: Recent Labs 01/02/22 1857 PROT 6.4 INR 1.2 Viki Donovan, DO 01/03/22, 7:41 AM Attestation signed by Jose Roberto Peñaloza MD I personally evaluated the patient and directed the medical decision making with Resident/ROSA afterthe physical/radiologic exam and laboratory values were reviewed and confirmed. UGI in am. Jose Roberto Peñaloza MD * Mercedes Morrow Susan, DO - 01/04/2022 7:29 AM EDT Bariatric [...] 01/03/2022 3:25 PM EDT Occupational Therapy Facility/Department: [address] Occupational Therapy Initial Assessment Name: Ashwini Vickers : 1935 Date of Service: 01/03/2022 Chief Complaint Patient presents with Abdominal Pain ulcer Discharge Recommendations: Patient would benefit from continued therapy after discharge OT Equipment Recommendations Equipment Needed: Yes Mobility Devices: ADL Assistive Devices ADL Assistive Devices: Business Services Clerk;Long-handled Sponge;Long-handled Shoe Horn;Sock- Aid Hard;Grab Bars -shower [...] Ambulation Assistance: Independent Transfer Assistance: Independent Active Molder: Yes Mode of Transportation: [facility] Occupation: Retired Type of Occupation: Reports he has retired 4-5 times. 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 [...] by assistance UE Dressing Skilled Clinical Factors: Calvin gown around back with SBA, required assist [...] Hand Dominance Hand Dominance: Right AM-PAC Score AM-[facility] Inpatient Daily Activity Raw Score: 19 (01/03/22 152) AM-[facility] Inpatient ADL T-Scale Score : 40.22 (01/03/22 152) ADL Inpatient CMS 0-100% Score: 42.8 (01/03/221524) ADL Inpatient [facility] G-Code Modifier : CK (01/03/221524) Goals Short Term Goals Time Frame for [...] Timed Code Treatment Minutes: 8 Minutes Judi Ye, OTR/L * Ino Sylvester, PT - 01/03/2022 12:40 PM EDT Physical Therapy Facility/Department: [address] [facility] Initial Assessment Name: Ashwini Vickers [...] Ambulation Assistance: Independent Transfer Assistance: Independent Active Molder: Yes Mode of Transportation: [employer] Occupation: Retired Type of Occupation: Reports he has retired 4-5 times. 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 Leisure & [...] Inpatient Mobility Raw Score : 18 (01/03/22 1239) AM-PAC Inpatient T-Scale Score : 43.63 (01/03/22 1239) Mobility Inpatient CMS 0-100% Score: 46.58 (01/03/22 1239) Mobility Inpatient CMS G-Code Modifier : CK (01/03/22 123) Goals Short Term Goals Time Frame for [...] turgor I/O last 3 completed shifts: In: 7.5 [I.V.:1757.1; IV Piggyback:200.5] Out: 935 [Urine:700; Drains:210; Blood:25] Drain/tube output: In: 1956.5 [I.V.:1757.1] Out: 935 [Urine:700; Drains:210] LAB: CBC: Recent Labs 01/02/22185601/03/22 0627 WBC 20.5* 22.1* HGB 12.9* 12.2* HCT 38.9* 37.4* MCV 81.2* 82.4* PLT 324 292 BMP: Recent Labs 01/02/22185601/03/22 0155 01/03/22 0627 NA 130* 136 138 K 4.1 4.6 4.5 CL 96* 105 104 CO2 22 25 21 BUN 19 18 21 CREATININE 0.81 0.75 0.84 GLUCOSE 452* 81 176* COAGS: Recent Labs 01/02/22 1857 PROT 6.4 INR 1.2 Breana Johnson MD 01/03/22, 7:51 AM Attestation signed by Jose Roberto Peñaloza MD I personally evaluated the patient and directed the medical decision making with Resident/ROSA afterthe physical/radiologic exam and laboratory values were reviewed and confirmed. Feeling better, to bring in insulin pump. Jose Roberto Peñaloza MD * Queta Geiger RN - 01/03/2022 12:19 AM EDT Assessment forms from [place] note that pt stated he has bed bugs at home and although they have treated the house, they have not been able to get rid of them. Pt did not have any belongings transferred with him from the OR. documented in this encounterBON [employer] Work Phone: consult note Author Tru Briceno [facility] May 03, 2023 3:17pm Note Date/Time May 03, 2023 2 :59pm [facility] [address] [place] [address] Physiatry (Rehab) Consult Note Signed Patient: Ashwini Vickers MR#: [id number] : 1935 Acct:[id number] Age/Sex: 88 / M Adm Date: 3 Loc: 4N Room: [address] [place] [address] Type: ADM IN Attending Dr: Humberto Diaz [...] negative unless noted below or in HPI [facility] Medical History BPH (benign prostatic [...] unit subcut HS 04/28/23 [History Confirmed 04/28/23] [id number] 24,000-76,000-120,000 unit capsule,delayed rel (Creon) 2cap PO [...] bisacodyl 10 mg rectal suppository 10 mg AL DAILY PRN Constipation #0 ea 05/03/23 [Rx] [...] Code(s): I25.10 - Atherosclerotic heart disease of [place] tribe coronary artery without angina pectoris Status: Acute [...] at least 3 times weekly encounters with retirement assistant for medical management and for plan of care review / changes. Plan: I completed a substantive portion of this encounter, the medical decision making portion of this note in its entirety, including Allied health note review, nursing note review, operational risk consultant note review, discussion with nursing and case management, and more than 50% of my time was spent on counseling and coordination of care, time spent 65 minutes Patient was personally seen by me, Dr. Briceno, on the day of encounter, reviewed the history and the relevant portions of the chart, including current orders, allied health and operational risk consultant notes, labs/imaging and performed smyth elements of exam and I formulated the plan of care and facilitated the medical decision making. Documented By: Tru Briceno MD 05/03/23 1457 Signed By: <Electronically signed by Tru Briceno MD> 05/03/[address] [facility] Work Phone: Discharge summary Author Humberto Diaz [facility] May 03, 2023 2:54pm Note Date/Time May 03, 2023 2 :39pm [facility] [address] [place] [address] Discharge Summary Signed Patient: Ashwini Vickers MR#: [id number] : 1935 Acct:[id number] Age/Sex: 88 / M Adm Date: 3 Loc: Room: [address] [place] [address]: Humberto Diaz MD Copies to: [...] Discharge Plan Discharge Plan Patient Disposition: Rehab [facility] Diet: Diabetic Additional Instructions: Rehab to manage: [...] high armed straight-backed chair. -May use toilet american sign language interpreter on commode. -Continue to use walker or [...] OTHER -Any problems- Call the office at [phone] or return to Emergency Room. -If you are having excessive or persistent pain, swelling, fever (oral temp >101), yellow-green foul smelling drainage or bleeding from incision, excessive redness of incision, nausea, vomiting, or any other problems, you should first call your surgeon at [phone] for advice. If you are unable to [...] 0RF bisacodyl 10 mg Suppository 10 mg AL DAILY PRN (Reason: Constipation) Qty: 0 0RF [...] (call at discharge from Rehab to see Nuclear Radiologist for future ANGIOPLASTY PROCEDURE) Marie Castro DO [...] <Electronically signed by Humberto Diaz MD> 05/03/23 0278 [facility] Work Phone: Evaluation note* Diagnosis Perforated [...] uncontrolled, or unspecified documented in this encounter [facility] Work Phone: evaluation note* Diagnosis Onset Date Resolution Status Abnormal EKG acute Closed intertrochanteric fracture of right hip acute Elevated troponin acute [facility] Work Phone: Evaluation note* Diagnosis Onset Date Resolution Status Abnormal EKG acute Closed intertrochanteric fracture of right hip acute Diabetes acute Elevated troponin acute Impaired mobility and activities of daily living acute Mild left ventricular systolic dysfunction (LVSD) acute Nonsustained monomorphic ventricular tachycardia acute Postoperative pain, acute, hip acute Two-vessel coronary artery disease acute [facility] Work Phone: Evaluation note* Diagnosis Onset [...] artery disease acute Uncontrolled diabetes mellitus acute [facility] Work Phone: Evaluation note* Diagnosis NSTEMI (non-ST elevated myocardial infarction) ([facility])- Primary Acute myocardial infarction, subendocardial infarction, episode of care unspecified Abnormal stress test Other nonspecific abnormal cardiovascular system function study ASHD (arteriosclerotic heart disease) Coronary atherosclerosis of unspecified type of vessel, [place] or graft Essential hypertension Unspecified essential hypertension Diabetes mellitus type II, non insulin dependent ([facility]) Type II or unspecified type diabetes mellitus without mention of complication, not stated as uncontrolled Closed fracture of right hip, initial encounter ([facility]) documented in this encounter [facility] Work Phone: Evaluation noteNo InformationNortWellSpan [facility] OffersBy.Me Other Evaluation note* Diagnosis Onset Date Resolution Status Diabetes acute CAD (coronary artery disease) acute Diabetes acute [facility] Work Phone: Evaluation note* Diagnosis Cardiomyopathy, ischemic- Primary Other specified forms of chronic ischemic heart disease ASHD (arteriosclerotic heart disease) Coronary atherosclerosis of unspecified type of vessel, [place] or graft BMI 20.0-20.9, adult Orthopnea documented in this encounter [facility] Work Phone: Evaluation noteNo assessment information available [facility] Work Phone: Evaluation note* Diagnosis Onset Date Resolution Status Fracture of C5 vertebra, closed acute Vertebral fracture, closed a cute Barretts esophagus acute H pylori ulcer acute [facility] Work Phone: History general Narrative - Reported* Type Description Date Medical History 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 Call Your Doctor If Any of the [...] through Care Everywhere. * Surgical Drain Care (Swedish) [facility] Work Phone: Hospital Discharge instructions Additional Instructions [...] -Dietary supplement: Glucerna 1 container twice a day.[facility] Work Phone: Hospital Discharge instructions Additional Instructions [...] doctor or pharmacist, without first calling the asbestos removal worker who implanted the stent. If you require [...] weight lifting, stair steppers, etc. until the asbestos removal worker approves these activities. Check with the asbestos removal worker on your first follow-up visit. CALL YOUR PHYSICIAN at [phone]: -If bleeding should occur from the catheter insertion site- apply pressure to the site then immediately call us. -Report any fever, redness, drainage, increased swelling, or firmness at the catheter insertion site. Some bruising or slight swelling may be present at the time of discharge. -Should arm or leg become cold, numb, white, or blue, contact the asbestos removal worker immediately. -IF you should experience episodes of [...] is recommended. Please call Central Scheduling at [phone] to schedule your appointment.] The attending asbestos removal worker or [facility] nurse clinician should provide you with specific instructions regarding activity, diet, medications, and further follow up for you. Follow the medication instructions provided on your discharge. If the dosages and instructions on this sheet differ from the dosage and instructions on the bottle, follow the instructions on the bottle. [facility] is not responsible for incorrect prescription information provided by the patient during their visit. Do not stop your medications without consulting your health care provider. Please take the list with you to your next doctor's appointment.[facility] Work Phone: Reason for referral (narrative)* Consultation (Routine) - Authorized Specialty Diagnoses / Procedures Referred By Corbin t Referred To Contact Cardiology Diagnoses Abnormal stress test ASHD (arteriosclerotic heart disease) NSTEMI (non-ST elevated myocardial infarction) ([facility]) Procedures Follow Up In Cardiology Adrián Davis DO [address] [facility] [address], [address] [address] Adrián Davis [facility] [facility], [address] [address] Referral ID Status Reason Start Date Expiration Date V isits Requested Visits Authorized [id number] Authorized 05/25/2023 05/24/2024 1 1 * Cardiovascular (Routine) - Pending Review Specialty Diagnoses / Procedures Referred By Contac t Referred To Contact Diagnoses Abnormal stress test ASHD (arteriosclerotic heart disease) Procedures ECG 12 Lead Adrián DavisDO [facility] [facility], [address] [address] Referral ID Status Reason Start Date Expiration Date V isits Requested Visits Authorized [id number] Pending Review 05/25/2023 05/24/2024 1 1 [facility] Work Phone: Summary Purpose Family History Relationship Condition Age at Onset Recorded Date/T madelyn brother Malignant neoplasm Unknown natural son Sarcoma Unknown Relationship Condition Age at Onset Recorded Date/T madelyn brother Malignant neoplasm Unknown natural son Sarcoma Unknown sister Leukemia Unknown Advance Directives Latest Code Status on File Code Status Date [...] Visit Diabetes CAD (coronary artery disease) Diabetes Chief Complaint Abnormal Stress, CAD , Cardiomyopathy s72.141A GI Bleed Fall GI Bleed Fall GI Bleed Fall GI Bleed Fall c spine fx Chief Complaint Abnormal Stress, CAD , Cardiomyopathy s72.141A GI Bleed Fall GI Bleed Fall GI Bleed Fall GI Bleed Fall c spine fx nick,gi ulcer Chief Complaint Abnormal Stress, CAD , Cardiomyopathy s72.141A GI Bleed Fall GI Bleed Fall GI Bleed Fall GI Bleed Fall c spine fx nick,gi ulcer referral cervical Chief Complaint s72.141A GI Bleed Fall GI Bleed Fall GI Bleed Fall GI Bleed Fall c spine fx nick,gi ulcer referral cervical follow up seen in pt/egd.lewis's esophagus Reason for Visit Fracture of C5 verte bra, closed Vertebral fracture, closed Barretts esophagus H pylori ulcer Additional Source Comments (unrecognized sect ion and content) No Status Records FoundNo Status Records FoundNo Status Records FoundNo Status Records FoundNo Status Records FoundNo Status Records FoundNo Status Records FoundNo Status Records FoundNo Status Records Found INFORMATION SOURCE (unrecogn ized section and content) DATE CREATED AUTHOR 06/25/2018 [facility] DATE CREATED AUTHOR AUTHOR'S ORGANIZ ATION 06/21/2019 [facility] DATE CREATED AUTHOR AUTHOR'S ORGANIZ ATION 01/29/2022 [facility] DATE CREATED AUTHOR AUTHOR'S ORGANIZ ATION 06/11/2022 [facility] DATE CREATED AUTHOR AUTHOR'S ORGANIZ ATION 06/12/2023 [facility] DATE CREATED AUTHOR AUTHOR'S ORGANIZ ATION 09/11/2023 [facility] EPIC DATE CREATED AUTHOR AUTHOR'S ORGANIZ ATION 10/07/2023 [facility] DATE CREATED AUTHOR AUTHOR'S ORGANIZ ATION 10/12/[address] [facility] DATE CREATED AUTHOR AUTHOR'S ORGANIZ ATION 10/23/2023 [facility] Ambulatory Reason for Visit (unrecogniz ed section and content) Reason Comments Abdominal Pain ulcer Specialty Diagnoses / Procedures Referred By Corbin t Referred To Contact Diagnoses Acute gastric ulcer with perforation (HCC) Perforated viscus Paul Conn, DO [address] [facility] [address] [place] [address] [facility] [address] [place] [address] Referral ID Status Reason Start Date Expiration Date Visits Re quested Visits Authorized [id number] 1 1 Reason Comments Hospital Follow-up [facility] 05/08/2023 Specialty Diagnoses / Procedures Referred By Corbin bradshaw Referred To Contact Diagnoses Abnormal stress test ASHD (arteriosclerotic heart disease) Procedures ECG 12 Lead Adrián Davis, [address] [facility], [address] [place] [address] Referral ID Status Reason Start Date Expiration Date V isits Requested Visits Authorized [id number] Pending Review 05/25/2023 05/24/2024 1 1 Reason Comments Follow-up PCI Specialty Diagnoses / Procedures Referred By Corbin bradshaw Referred To Contact Cardiology Diagnoses ASHD (arteriosclerotic heart disease) Procedures Follow Up In Cardiology Sammy Wolff, HAND REAMER-WATERWORKS PUMP STATION OPERATOR [address] [facility], [address] [place] [address] Referral ID Status Reason Start Date Expiration Date V isits Requested Visits Authorized [id number] Authorized 06/23/2023 06/22/2024 1 1 Ordered Prescriptions [...] Baljit Sage RN)2350 (Given - Provider: Queta Geiger RN) 0517 (Given - Provider: Queta Geiger RN)1400 (Due)2200 (Due) amLODIPine (NORVASC) tablet 5 mg 5 mg, Oral, DAILY, First dose on Wed01/04/22 at 1500, Until Discontinued 0940 (Given - Provider: Baljit Sage RN) 0938 (Given - Provider: Baljit Sage RN) 0935 (Given - Provider: Leatha Hudson RN) enoxaparin (LOVENOX) injection 40 mg 40 mg, [...] (Patient Supplied) SubCUTAneous, DAILY, First dose on 01/03/22 at 1530, Total daily basal dose (total [...] sugar 73)1217 (Patient/Family Admin - Provider: Leatha Hudson RN)1600 (Due)2000 (Due) magnesium oxide (MAG-OX) tablet 400 mg (COMPLETED) 400 mg, Oral, ONCE, 1 dose, On Wed01/07/22 at 1030 1218 (Given - Provider: Leatha Hudson RN) magnesium sulfate 2000 mg in 50 [...] Hanley RN)1129 (New Bag - Provider: Baljit Sage RN)1159 (Stopped - Provider: Baljit Sage RN)1655 (New Bag - Provider: Baljit Sage RN)1725 (Stopped - Provider: Baljit Sage, KARIN)2317 (New Bag - Provider: Queta Geiger, RN)2351 (Stopped - Provider: Queta Geiger, RN) 0506 (New Bag - Provider: Queta Geiger, RN)0536 (Stopped - Provider: Courtney Yao RN)1104 (New Bag - Provider: Baljit Sage RN)1134 (Stopped - Provider: Baljit Sage, RN) pantoprazole (PROTONIX) 40 mg in sodium chloride (PF) 10 mL injection 40 mg, IntraVENous, EVERY 12 HOURS, First dose on Wed01/02/22 at 2300, Reconstitute with 10 mL 0.9 % sodium chloride and administer over at least 2 minutes. 1132 (Given - Provider: Baljit Sage RN)2300 (Given - Provider: Queta Geiger, RN) 1100 (Given - Provider: Baljit Sage RN)2355 (Given - Provider: Queta Geiger, RN) 0939 [...] Castillo RN)1130 (New Bag - Provider: Baljit Sage, KARIN)1530 (Stopped - Provider: Baljit Sage RN)1655 (New Bag - Provider: Baljit Sage RN)2123 (Stopped - Provider: Qutea Geiger, RN)2312 (New Bag - Provider: Queta Geiger, RN) 0335 (Stopped - Provider: Queta Geiger, RN)0507 (New Bag - Provider: Queta Geiger, KARIN)0907 (Stopped - Provider: Baljit Sage RN)1104 (New Bag - Provider: Baljit Sage, KARIN)1504 (Stopped - Provider: Aurelia Castillo RN)1732 (Canceled [...] dose 0950 (New Bag - Provider: Baljit Sage, KARIN)1150 (Stopped - Provider: Baljit Sage RN) sodium [...] Baljit Sage RN)2014 (Given - Provider: Queta Geiger RN) 0939 (Given - Provider: Baljit Sage RN)192 (Given - Provider: Queta Geiger RN) 0938 (Not Given - Provider: Laetha Hudson RN - Reason: IV Fluid Infusing)2100 [...] Baljit Sage RN)1759 (Given - Provider: Baljit Sage, KARIN)2306 (Given - Provider: Queta Geiger, KARIN) 0621 (Given - Provider: Queta Geiger RN)1211 (Given - Provider: Baljit Sage RN)1757 (Given - Provider: Baljit Sage, KARIN)2350 (Given - Provider: Queta Geiger RN) 0517 (Given - Provider: Queta Geiger RN)1217 (Given - Provider: Leatha Hudson RN)1800 (Due) Continuous Medication Order 01/05/2022 01/06/2022 01/07/2022 0.9 % sodium chloride infusion IntraVENous, at 75 mL/hr, CONTINUOUS, Starting on Wed01/06/22 at 0830 0807 (New Bag - Provider: Baljit Sage RN)2349 (New Bag - Provider: uQeta Geiger, KARIN) lactated ringers infusion (CANCELED) IntraVENous, at 125 mL/hr, CONTINUOUS, Starting on Wed01/02/22 at 2300 1310 (Stopped - Provider: Baljit Sage RN)1310 (New Bag - Provider: Baljit Sage RN)2192 (Stopped - Provider: Baljit Sage RN - [...] IntraVENous, EVERY 6 HOURS PRN, Starting on 01/04/22 at 0740, Until Discontinued, High Blood Pressure, for sbp >160 iohexol (OMNIPAQUE 240) injection 100 mL (COMPLETED) 100 mL, Oral, IMG ONCE PRN, 1 dose, Starting on 01/05/22 at 0844, Until Wed01/05/22 at 0845, Other 0845 (Given - Provider: Kathy Ness) melatonin tablet 3 mg 3 mg, Oral, NIGHTLY PRN, Starting on Tu01/06/22 at 0000, Until Discontinued, Sleep 0022 (Given [...] Active Tru Briceno MD Other Provider Active 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 Start Date End Date Marie Castro [address] [place] [address] PCP - General Internal Medicine 01/07/22 Team Status: Active Member Role Status Dates Marie Castro , DO Primary Care Provider Active Vinnie Rivas PA-C Emergency Provider Active Sushant Cordon , DO Admit Provider, Attending Brandon griggs Active Team Status: Inactive Member Role Status Dates Marie Castro , DO Primary Care Provider Active Fredi Medrano MD Admit Provider, Attending Provider Active Lois Rios , KARIN Other Provider Active Kavya Velazquez , KARIN Other Provider Active Gay Angulo , KARIN Other Provider Active Buffy Hernandez , KARIN Other Provider Active Fransisca Bentley , KARIN Other Provider Active Diamond Henry , KARIN Other Provider Active Chris Holm MD Other Provider Active Vivian Zavala , HAND REAMER Other Provider Active Samantha Wilson , DO Other Provider Active Eric Major MD Other Provider Active Sushant Cordon , DO Other Provider Active Audi Gaming MD Other Provider Active Cecily Keen MD Other Provider Active Nidia Wright , HAND REAMER Other Provider Active Daniel Reyes MD Other Provider Active Roberto Sevilla MD Other Provider Active Humberto Diaz MD Other Provider Active Marzena Otto MD Other Provider Active Gray Gilliam , DO Other Provider Active Mc Cornejo MD Other Provider Active Raymundo Angeles MD Other Provider Active Tre Mccauley CINDER MAN-C Other Provider Active Indra Guillory MD Other Provider Active David Fonseca MD Other Provider Active Hai Aguilera MD Other Provider Active Esau Corrales MD Other Provider Active Leda Julian , DO Other Provider Active Guevara Mills , DO Other Provider Active Jose Roberto M Miniaci , DO Other Provider Active Anat Marte , HAND REAMER Other Provider Active Warren Gross , DO Other Provider Active Nayeli Jimenez MD Other Provider Active Nicole Wolff , HAND REAMER Other Provider Active Melisa Pimentel , HAND REAMER Other Provider Active Vidya Robert MD Other Provider Active Howard Burrell MD Other Provider Active Immanuel John , DO Other Provider Active Rosario Murdock , HAND REAMER Other Provider Active Mauricio Drake , DO Other Provider Active Erma Morillo RN Other Provider Active 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 Start Date End Date Marie Castro, DO [address] [place] [address] PCP - General Internal Medicine 05/18/23 Team Status: Inactive Member Role Status Dates Marie Castro DO Primary Care Provider Active Ashwini Conrad MD [...] Marie Castro DO Primary Care Provider Active Herminio Lakhani MD Attending Provider Active 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 Start Date End Date Marie Castro, DO [address] [place] [address] PCP - General Internal Medicine 05/18/23 Team Status: Inactive Member Role Status Dates Marie Castro DO Primary Care Provider Active Start: July 16, 2023 End: July 16, 2023 Federico Davis DO Attending Provider Active S tart: July 16, 2023 End: July 16, 2023 Team Status: Inactive Member Role Status Dates Marie Castro DO Primary Care Provider Active Start: July 27, 2023 End: July 27, 2023 Herminio Lakhani MD Attending Provider Active Star t: July 27, 2023 End: July 27, 2023 Team Status: Inactive Member Role Status Dates Marie Castro DO Primary Care Provider Active Start: August 31, 2023 End: September 06, 2023 Audi Gaming MD Admit Provider Active Start: August 31, 2023 End: September 06, 2023 Alberto Shearer MD Other Provider Active Start: Aug End: September 06, 2023 Beka Roland MD Other Provider Active Start: 2023 End: September 06, 2023 Tru Briceno MD Other Provider Active Start: 2023 End: September 06, 2023 Vidya Robert MD Attending Provider Active Star t: August 31, 2023 End: September 06, 2023 Team Status: Active Member Role Status Dates Marie Castro DO Primary Care Provider Active Start: August 31, 2023 Audi Gaming MD Admit Provider, Atte nding Provider, Other Provider Active Start: August 31, 2023 Alberto Shearer MD Other Provider Active Start: Aug Beka Roland MD Other Provider Active Start: 2023 Team Status: Active Member Role Status Dates Marie Castro DO Primary Care Provider Active Start: August 31, 2023 Audi Gaming MD Admit Provider, Other Provider Act tiffany Start: August 31, 2023 Alberto Shearer MD Attending Provider, Other Provider Active Start: August 31, 2023 Beka Roland MD Other Provider Active Start: 2023 Team Status: Active Member Role Status Dates Marie Castro DO Primary Care Provider Active Start: September 06, 2023 Audi Gaming MD Admit Provider Active Start: September 06, 2023 Alberto Shearer MD Other Provider Active Start: Aug Beka Roland MD Other Provider Active Start: 2023 Tru Briceno MD Attending Provider, Other Provider Active Start: September 06, 2023 Vidya Robert MD Other Provider Active Start: Primo decker 2023 Team Status: Inactive Member Role Status Dates Marie Castro DO Primary Care Provider Active Start: September 24, 2023 End: September 24, 2023 Audi Gaming MD Attending Provider Active St art: September 24, 2023 End: September 24, 2023 Team Status: Inactive Member Role Status Dates Marie Castro DO Primary Care Provider Active Start: September 27, 2023 End: September 27, 2023 MARYANN Fine Attending Provider Acti ve Start: September 27, 2023 End: September 27, 2023 Team Status: Inactive Member Role Status Dates Marie Castro DO Primary Care Provider Active Start: September 28, 2023 End: September 28, 2023 MARYANN Ozuna Attending Provider Active Start: September 28, 2023 End: September 28, 2023 Team Status: Inactive Member Role Status Dates Marie Castro DO Primary Care Provider Active Start: October 21, 2023 End: October 21, 2023 Alberto Shearer MD Attending Provider Active Start: October 21, 2023 End: October 21, 2023 Team Status: Inactive Member Role Status Dates Marie Castro DO Primary Care Provider Active Start: October 28, 2023 End: October 28, 2023 Anat Perez MD Attending Provider Active Sta rt: October 28, 2023 End: October 28, 2023 FOR RECORDS PERTAINING TO PATIENTS WHO ARE [...] BE BASED ON THE PRIMARY CLINICAL RECORDS. [facility] [employer] provides no warranty or guarantee of the accuracy or completeness of information in this document.
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
[2023-11-05] MEDS: ADACEL DIPH,PERTUSS(ACELL),TET VAC/PF 0.5 ML ADULT SYRINGE IM (21:38)
[2023-11-05 21:53] LABS: Glucometer 72 mg/dL (74-106)
[2023-11-05] MEDS: LIDOCAINE HCL 1% 100 MG/10 ML MDV INJ (22:30)
[2023-11-05] MEDS: SODIUM CHLORIDE 0.9% IRRIG SOLUTION 1,000 ML BOTTLE 1000 ML IRR (22:30)
[2023-11-05 22:51] LABS: Basophils Absolute Auto 0.1 10^3/uL (0.0-0.1); Basophils Percent Auto 0.5 % (0.2-2.0); Eosinophils Absolute Auto 0.2 10^3/uL (0.0-0.7); Eosinophils Percent Auto 1.6 % (0.9-7.0); Hematocrit 29.9 % (42.0-54.0); Hemoglobin 9.6 g/dL (14.0-18.0); Immature Granulocytes Abs Auto 0.02 10^3/uL (0.00-0.03); Immature Granulocytes Pct Auto 0.2 % (0.0-0.5); Lymphocytes Absolute Auto 1.7 10^3/uL (1.2-3.8); Lymphocytes Percent Auto 18.1 % (20.5-60.0); Mean Corpuscular HGB Conc 32.1 g/dL (29.9-35.2); Mean Corpuscular Hemoglobin 25.9 pg (25.9-34.0); Mean Corpuscular Volume 80.8 fL (80.0-94.0); Monocytes Absolute Auto 1.4 10^3/uL (0.3-0.8); Monocytes Percent Auto 14.5 % (1.7-12.0); Neutrophils Percent Auto 65.1 % (43.0-75.0); Platelet Count 293 10^3/uL (150-450); Red Cell Distribution Width 22.4 % (11.0-15.0); White Blood Count 9.3 10^3/uL (4.0-11.0)
[2023-11-05 22:54] LABS: Glucometer 72 mg/dL (74-106)
[2023-11-05 23:15] LABS: Anion Gap 11.2; BUN Creatinine Ratio 23.7; Calcium 8.6 mg/dL (8.5-10.1); Carbon Dioxide 27.8 mmol/L (21.0-32.0); Chloride 103 mmol/L (98-107); Estimated GFR (African America >60 (>=60); Estimated GFR (Non-African Ame >60 (>=60); Glucose 61 mg/dL (74-106); Sodium 138 mmol/L (136-145)
[2023-11-05 23:25] LABS: Glucometer 122 mg/dL (74-106)
[2023-11-05] MEDS: ACETAMINOPHEN 500 MG TABLET 1000 MG PO (23:33)
[2023-11-05] MEDS: CEPHALEXIN 500 MG CAPSULE PO (23:33)
[2023-11-05 23:53] VITALS: BP 139/70; PULSE 70; O2SAT 99
== END 2023-11-06 00:04 | disposition home or self-care (01) ==
PROVIDERS: Emergency Provider Emergency Medicine; PCP Internal Medicine
DX: S41.112A Laceration without foreign body of left upper arm, initial encounter (principal); Z23 Encounter for immunization; V43.62XA Car passenger injured in collision with other type car in traffic accident, initial encounter; S16.1XXA Strain of muscle, fascia and tendon at neck level, initial encounter; E11.649 Type 2 diabetes mellitus with hypoglycemia without coma; I25.10 Atherosclerotic heart disease of native coronary artery without angina pectoris; I70.90 Unspecified atherosclerosis; Z87.19 Personal history of other diseases of the digestive system; Z95.5 Presence of coronary angioplasty implant and graft; Z90.81 Acquired absence of spleen; Z90.410 Acquired total absence of pancreas; Z79.899 Other long term (current) drug therapy
CPT/HCPCS: 12031; 36415; 72040; 72100; 73080; 80048; 85025; 90471; 90715; 99285

== ENCOUNTER 2023-11-07 16:10 | Emergency (ER) | payer OTHER, MEDICARE, SELFPAY ==
--- OUTSIDE RECORDS SUMMARY | 2023-11-07 16:17 | XMS_ITS | CCD ---
Author Organization [employer] Care Team Providers Care Geodetic Survey Director Name Role Phone MARINO POE Unavailable Unavailable [...] Emergency Provider DO Sushant Cordon Admit Provider [phone] DO Sushant Cordon Attending Provider MD Ashwini Conrad Other Provider MD Chuck Velasco Other Provider [phone] MD Anat Perez Other Provider MD Humberto [...] Other Provider AMADA Zavalaa Guille Other Provider DO Samantha Wilson Other Provider [...] [place] Other Provider MARYANN Mccauley Other Provider [phone] MD Indra Guillory Other Provider MD David Fonseca Other Provider MD Hai Aguilera Other Provider MD Esau Corrales Other Provider DO Leda Julian Other Provider DO Guevara Mills R Other Provider [phone] MiniDO Kira jeffriesony Guille Other Provider AMADA Marte Other Provider DO Warren Gross Other Provider MD Nayeli Jimenez M Other Provider AMADA Wolff Other Provider AMADA Pimentel Other Provider MD Vidya Robert Other Provider MD Howard Burrell Other Provider DO Immanuel John Other Provider AMADA Murdock Other Provider [phone] DO Vidal Yazid Other Provider KARIN Morillo Other Provider Unavailable Ashwini Conrad Unavailable Marie Castro DO Primary Care Provider DO Marie Castro Primary Care Provider JO Rivas Emergency Provider DO Sushant oCrdon Admit Provider [phone] MD Ashwini Conrad Other Provider [phone] MD Chuck Velasco Other Provider [phone] MD Anat Perez Other Provider MD Humberto Diaz Attending Provider MD Tru Briceno Other Provider MD Fredi Medrano Admit Provider [phone] MD Fredi Medrano Attending Provider [phone] KARIN Rios Other Provider Unavailable KARIN Velazquez Other Provider Unavailable KRAIN Angulo Other Provider Unavailable KARIN Hernandez Other [...] [phone] MD Nayeli Jimenez Other Provider [phone] AMADA Wolff Other Provider AMADA Pimentel Other Provider MD Vidya Robert Other Provider MD Howard Burrell Other Provider DO Alvaro Immanuel T Other Provider [phone] AMADA Murdock Other Provider DO Vidal Yadontae Other Provider Yisel, RN Erma Other Provider Unavailable MD Ashwini Conrad Attending Provider PROVIDER, UNKNOWN Attending Unavailable PROVIDER, UNKNOWN Admitting Unavailable MD Chuck Velasco Other Provider DO Federico Davis Attending Provider [phone] MD Herminio Lakhani Attending Provider Anat Perez Unavailable MARIE CASTRO Attending Unavailable MARIE CASTRO Referring Unavailable MARIE CASTRO Referring Unavailable MARIE CASTRO Attending Unavailable MARIE CASTRO Referring Unavailable STALIN ALAMO Attending Unavailable MARIE CASTRO Referring Unavailable DO Marie Castro Primary Care Provider [phone] DO Federico Davis Attending Provider MD Herminio Lakhani Attending Provider MD Audi Gaming Admit Provider MD Alberto Shearer Other Provider MD Beka Roland Other Provider MD Tru Briceno Other Provider MD Vidya Robert Attending Provider [phone] MD Audi Gaming Attending Provider MARYANN Flores Attending Provider Provider, None Primary Care Unavailable Arian Balderas Admitting Unavailable Arian Balderas Attending Unavailable Provider, None Primary Care Unavailable Arian Balderas Admitting Unavailable Arian Balderas Attending Unavailable Provider, None Primary Care Unavailable Arian Balderas Admitting Unavailable Arian Balderas Attending Unavailable DO Marie Castro Primary Care Provider [phone] ADRIÁN DAVIS Attending Unavailable [facility] Primary Care Unavailab ADRIÁN Sarmiento Referring Unavailable SAMMY WOLFF Attending Unavailable ADRIÁN DAVIS Referring Unavailable VASCHAK, MARIE TRU Primary Care Unavailab SAMMY Sosa Attending Unavailable SAMMY WOLFF K Referring Unavailable V[facility], MARIE TRU Primary Care Unavailab le Xav[place], DO Salazar Primary Care Provider [phone] Ashwini Conrad Attending Unavailable Ashwini Conrad Admitting Unavailable [facility], Marie Primary Care Unavailable [facility] Primary Care Unavailable Ashwini Conrad Attending Unavailable Ashwini Conrad Admitting Unavailable [facility] Primary Care Unavailable Federico Davis Attending Unavailable Federico Davis Admitting Unavailable Humberto Diaz Attending Unavailable Ashwini Conrad Consulting Unavailable [facility] Marie Primary Care Unavailable Sushant Cordon Admitting UnavailChuck Apodaca Consulting UnaAnat Kenny Consulting Unavailable Tru Briceno Consulting Unavailable Matthew, Marie Primary Care Unavailable [employer] Admitting Unavailable Vidya Robert Attending Unavailable Alberto Shearer Consulting Unavailable Beka Roland Consulting Unavailable Tru Bricneo Consulting Unavailable Fredi Medrano Attending Unavaila Lois Malloy Consulting Unavailable Fredi Medrano Admitting Unavaila ble Matthew, Marie Primary Care Unavailable Kavya Velazquez Consulting Unavailable Gay Angulo Consulting Unavailable Buffy Hernandez Consulting Unavailable Fransisca Bentley Consulting Unavailable Diamond Henry Consulting Unavailable Chris Holm Consulting Unavailable Vivian Zavala Consulting Unavailable Samantha Wilson Consulting Unavailable Eric Major Consulting Unavailable Ssuhant Cordon Consulting UnavailAudi Hay Consulting Unavailable Cecily Keen Consulting Unavailable Nidia Wright Consulting UnavailDaniel Ochoa Consulting Unavailable Roberto Sevilla Consulting Unavailable Humberto Diaz Consulting Unavailable Marzena Otto Consulting Unavailable Gray Gilliam Consulting Unavailable Mc Cornejo Consulting Unavailable Raymundo Angeles Consulting Unavailable Tre Mccauley Consulting Unavailable Indra Guillory Consulting UnavailDavid Herrera Consulting Unavailable Hai Aguilera Consulting Unavailable Esau Corrales Consulting Unavailable Leda Julian Unavailable Guevara Mills Consulting Unavailable MiniJose Roberto jeffries Consulting Unavailable ObAnat vallejo Consulting Unavailable Warren Gross Consulting Unavailable DaromarNayeli Consulting Unavailable Nicole Wolff Consulting Unavailable Melisa Pimentel Consulting Unavailable Vidya Robert Consulting Unavailable Howard Burrell Consulting Unavailable Immanuel John Consulting Unavailable Rosario Murdock Consulting Unavailable Mauricio Drake Consulting Unavailable Erma Morillo Consulting Unavailable Marie Castro Primary Care Unavailable Herminio Lakhani Attending Unavailable Herminio Lakhani Admitting Unavailable Marie Castro Primary Care Unavailable [employer] Attending Unavailable [employer] Admitting Unavailable Candy Flores Attending Unavail able Candy Flores Admitting Unavail able Marie Castro Primary Care Unavailable Medications Current Medications Medication Drug Class(es) Dates [...] on 01/04/22 at 1500, Until Discontinued amylase 732945 unt / lipase 87146 unt / protease 06854 unt delayed release oral capsule (20 sources) Start: 05-07-2023 take 27600-66844 capsules by mouth once Aopnme-Vsfnkjeq-Ezhgcfv (Creon) 24,000-76,000 -120,000 unit Capsule,Delayed Release(/Ec) Active 2 CAP PO 3x/Day with meals May 07, 2023 12:00am Start: 04-28-2023 End: 05-07-2023 take 75970-82866 capsules by mouth three times daily Brlgjx-Fbqnzzbc-Ebiaszl (Creon) 24,000-76,000 -120,000 unit capsule,delayed release(DR/EC) Discontinued 2 CAP PO Three times daily April 28, 2023 12:00am May 07, 2023 2:27pm take 1 capsule by [facility] three times daily at mealtime kzlgia-aesmjicl-tbdyqyp (CREON) 40301-08655 units delayed release capsule Take 1 capsule by mouth 3 times daily (with meals) 0 Active lipase-protease- amylase (CREON) 75798-19034 units delayed release capsule Take 12,000 Units [...] 28, 2023 2:44pm take 1 capsule by id ut once daily cholecalciferol (Vitamin D3) 25 [...] lipase/protease/tre lase (CREON ORAL) (2 sources) take 95018 mg by mouth three times daily lipase/protease/amyla se (CREON ORAL) Take 24,000 mg by mouth 3 times a day. 0 Active loratadine 10 mg oral tablet (6 sources) Start: 4 take 1 tablet by mouth once daily Loratadine (Claritin) 10 mg tablet Active 1 TAB PO Daily October 26, 2023 12:00am FreeTextSi tablet Orally Once a day; Note: Source Status: Taking; Provider: Houston Maradiaga ( ) take 1 tablet by sondra every twenty-four hours Claritin 10 MG 1 tablet Orally Once a day Active lutein 6 mg oral capsule (6 sources) Start: 10-26-2023 take 6 mg by mouth once daily Lutein Active 6 MG PO Daily October 26, 2023 12:00am give with meal/snack take 1 capsule by mo [facility] every twenty-four hours Lutein 6 MG 1 [...] Daily May 07, 2023 12:00am Vitamin D3 3933554 UNIT/GM (4 sources) Vitamin D3 0495158 UNIT/GM as directed Active Completed/Discontinued Medications Medication [...] 4-6 hrs for 7 days ROSEANN # [id number] Active take 1 tablet by sondra th [...] 05-03-2023 End: 05-03-2023 Bisacodyl Discontinued 10 MG NM Daily 0 May 03, 2023 12:00am May [...] (OMNIPAQUE 240) injection 100 mL lactobacillus acidophilus [id number] unt oral capsule (5 sources) Start: 08-31-2023 [...] infarction] Onset: 3 05-25-2023 Chronic Anxiety disorders (14 sources) Mixed anxiety and depressive disorder; Translations: [Anxiety disorder, unspecified] Onset: 3 05-04-2023 Chronic Cancer of pancreas (1 source) Malignant neoplasm of body of pancreas; Translations: [Malignant neoplasm of body of pancreas] Onset: 8 Chronic Cardiac dysrhythmias (15 sources) Paroxysmal ventricular tachycardia; 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] 04-29-2023 Chronic Coronary atherosclerosis 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; Translations: [Atherosclerotic heart disease of [place] coronary artery without angina pectoris] Onset: 3 [...] unspecified, initial encounter] 09-14-2023 Episodic Other fractures (4 sources) Closed fracture [...] of fifth cervical vertebra] 09-28-2023 Episodic Other fractures (1 source) Fracture of neck, unspecified, initial encounter; Translations: [Fracture of neck, unspecified, initial encounter] Onset: 4 Episodic Other gastrointestinal disorders (2 sources) Viscus [...] Translations: [Abnormal weight loss] Onset: 8 Episodic Pancreatic disorders (not diabetes) (1 source) [...] initial encounter for closed fracture] Onset: 3 Unclassified (1 source) Displaced intertrochanteric fracture of [...] PAIN, UNSPECIFIED] Onset: 01-02-2022 Episodic Administrative/social admission (19 sources) Other reduced mobility; [...] [Pain in unspecified hip] Onset: 04-28-2023 Episodic Other screening for suspected conditions (not mental disorders or infectious disease) (20 sources) Raised cardiac enzyme or marker; Translations: [Other specified abnormal findings of blood chemistry] Onset: 04-28-2023 04-28-2023 Episodic Residual codes; unclassified (2 sources) Body mass index (BMI) 20.0-20.9, adult; Translations: [Body mass index (BMI) 20.0-20.9, adult] Onset: 06-23-2023 Episodic Residual codes; unclassified (1 source) Other specified health status; Translations: [Other specified health status] Onset: 04-28-2023 Episodic Unclassified (2 sources) Onset: 05-25-2023 Resolved: 08-16-2023 05-25-2023 Results Test Name Value Interpretation Reference Range Facility Glucose Glucometer (BldC) [M ass/Vol]Ordered By: Candy Flores on 09-27-2023 Glucose [Mass/Vol] 71 mg/dL [facility] Comment on above: Random Glucose Refer ence Range is dependent on time and content of last meal. Glucose of more than 200 mg/dL in a nonstressed, ambulatory subject supports the diagnosis of Diabetes Mellitus. Glucose Poct Glucometerson 0 09-27-2023 Glucose [Mass/Vol] 71 mg/dL Normal [facility] Comment on above: Result Comment: [place] om Glucose Reference Range is dependent on time and content of last meal. Glucose of more than 200 mg/dL in a nonstressed, ambulatory subject supports the diagnosis of Diabetes Mellitus.PERFORMED BY:[place] [address] [place], [place] [phone] MEDICAL DIRECTORAIRAM MAST M.D. Performed By: #### G LULS ####Point of Care testing, XR cervical spine 2Von 09-23 XR cervical spine 2V Normal [facility] Glucose Glucometer (BldC) [M ass/Vol]Ordered By: Vidya Robert on 09-06-2023 Glucose [Mass/Vol] 268 mg/dL [facility] Comment on above: Random Glucose Refer ence Range is dependent on time and content of last meal. Glucose of more than 200 mg/dL in a nonstressed, ambulatory subject supports the diagnosis of Diabetes Mellitus. Glucose Poct Glucometerson 0 09-06-2023 Glucose [Mass/Vol] 268 mg/dL Normal [facility] Comment on above: Result Comment: [place] om Glucose Reference Range is dependent on time and content of last meal. Glucose of more than 200 mg/dL in a nonstressed, ambulatory subject supports the diagnosis of Diabetes Mellitus.PERFORMED BY:[place] [place], [place] [phone] MEDICAL DIRECTORAIRAM MAST M.D. Performed By: #### G LULS ####Point of Care testing, Commemt1 Glu2: Cleaned Meter Normal [facility] Comment on above: Result Comment: PERF ORMED BY:[place] [place], [place] [phone] MEDICAL DIRECTORAIRAM MAST M.D. Performed By: #### G LULS ####Point of Care testing, Glucose [Mass/Vol] 327 mg/dL Normal [facility] Comment on above: Result Comment: [place] Glucose Reference Range is dependent on time and content of last meal. Glucose of more than 200 mg/dL in a nonstressed, ambulatory subject supports the diagnosis of Diabetes Mellitus. Performed By: #### G LULS ####Point of Care testing, Commemt1 Glu2: Cleaned Meter Normal [facility] Comment on above: Result Comment: PERF ORMED BY:[address] [place], [place] [phone] MEDICAL DIRECTORAIRAM MAST M.D. Performed By: #### G LULS ####Point of Care testing, Glucose [Mass/Vol] 180 mg/dL Normal [facility] Comment on above: Result Comment: [place] Glucose Reference Range is dependent on time and content of last meal. Glucose of more than 200 mg/dL in a nonstressed, ambulatory subject supports the diagnosis of Diabetes Mellitus. Performed By: #### G LULS ####Point of Care testing, Glucose [Mass/Vol] 74 mg/dL Normal [facility] Comment on above: Result Comment: [place] Glucose Reference Range is dependent on time and content of last meal. Glucose of more than 200 mg/dL in a nonstressed, ambulatory subject supports the diagnosis of Diabetes Mellitus.PERFORMED BY:[address] [place], [place] [phone] MEDICAL DIRECTORAIRAM MAST M.D. Performed By: #### G LULS ####Point of Care testing, No Panel InformationOrdered By: Vidya Robert on 09-06-2023 Bedside Glucose Comment Glu2: cleaned meter [facility] Erythrocyte distribution wid th Auto (RBC) [Ratio]Ordered By: [employer] on 09-05-2023 Erythrocyte distribution width (RBC) [Ratio] 16.7 % 12.0-14.8 [facility] Glucose Poct Glucometerson 0 09-05-2023 Glucose [Mass/Vol] 134 mg/dL Normal [facility] Comment on above: Result Comment: [facility] Glucose Reference Range is dependent on time and content of last meal. Glucose of more than 200 mg/dL in a nonstressed, ambulatory subject supports the diagnosis of Diabetes Mellitus.PERFORMED BY:[place] [address] [place], [place] [phone] MEDICAL HUMBLE MAST M.D. Performed By: #### G LULS ####Point of Care testing, Glucose [Mass/Vol] 99 mg/dL Normal [facility] Comment on above: Result Comment: [facility] Glucose Reference Range is dependent on time and content of last meal. Glucose of more than 200 mg/dL in a nonstressed, ambulatory subject supports the diagnosis of Diabetes Mellitus.PERFORMED BY:[place] [address] [place], [place] [phone] MEDICAL HUMBLE MAST M.D. Performed By: #### G LULS ####Point of Care testing, Glucose [Mass/Vol] 264 mg/dL Normal [facility] Comment on above: Result Comment: [facility] Glucose Reference Range is dependent on time and content of last meal. Glucose of more than 200 mg/dL in a nonstressed, ambulatory subject supports the diagnosis of Diabetes Mellitus.PERFORMED BY:[place] [address] [place], [place] [phone] MEDICAL HUMBLE MAST M.D. Performed By: #### G LULS ####Point of Care testing, Glucose [Mass/Vol] 125 mg/dL Normal [facility] Comment on above: Result Comment: [facility] Glucose Reference Range is dependent on time and content of last meal. Glucose of more than 200 mg/dL in a nonstressed, ambulatory subject supports the diagnosis of Diabetes Mellitus.PERFORMED BY:[place] [address] [place], [place] [phone] MEDICAL DIRECTORAIRAM AMST M.D. Performed By: #### G RIOS ####Point of Care testing, Hematocrit Auto (Bld) [Volum e fraction]Ordered By: [employer] on 09-05-2023 Hematocrit (Bld) [Volume fraction] 22.7 % 38.8-50.0 [facility] Hemoglobin [Mass/volume] in BloodOrdered By: [employer] on 09-05-2023 Hemoglobin (Bld) [Mass/Vol] 7.8 g/dL 13.0-17.0 [facility] Hemogram CBC Without Diffon 09-05-2023 Erythrocyte distribution width (RBC) [Ratio] 16.7 % High 12.0-14.8 [facility] Comment on above: Performed By: #### C BCNO ####[place] [id number] [facility] Hematocrit (Bld) [Volume fraction] 22.7 % Low 38.8-50.0 [facility] Comment on above: Performed By: #### C BCNO ####[place] [id number] [facility] Hemoglobin (Bld) [Mass/Vol] 7.8 g/dL Low 13.0-17.0 [facility] Comment on above: Performed By: #### C BCNO ####[place] [id number] [facility] MCH (RBC) [Entitic mass] 28.7 pg Normal 27.5-35.2 [facility] Comment on above: Performed By: #### C BCNO ####[address] [address] [facility] MCV (RBC) [Entitic vol] 84.1 fL Normal 83.5-101 [facility] Comment on above: Performed By: #### C BCNO ####[place] [id number] [facility] Mean Corpuscular HGB Conc 34.1 g/dL Normal 32.5-35.6 [facility] Comment on above: Performed By: #### C BCNO ####[place] [address] [place] [address] [facility] Platelet mean volume (Bld) [Entitic vol] 9.8 fL Normal 6.6-10.1 [facility] Comment on above: Result Comment: PERF ORMED BY:[address] [place], [place] [phone] MEDICAL DIRECTORAIRAM MAST M.D. Performed By: #### C BCNO ####[address] [address] [facility] Platelets (Bld) [#/Vol] 236 10*3/uL Normal 150-450 [facility] Comment on above: Performed By: #### C BCNO ####[address] [address] [facility] RBC (Bld) [#/Vol] 2.70 10*6/uL Low 3.90-5.60 [facility] Comment on above: Performed By: #### C BCNO ####[address] [address] [facility] WBC (Bld) [#/Vol] 9.4 10*3/uL Normal 4.1-10.5 [facility] Comment on above: Performed By: #### C BCNO ####[address] [address] [facility] Leukocytes [#/volume] correc robert for nucleated erythrocytes in Blood by Automated counOrdered By: [employer] on 09-05-2023 WBC corrected for nucl RBC Auto (Bld) [#/Vol] 9.4 10*3/uL 4.1-10.5 [facility] MCH Auto (RBC) [Entitic mass ]Ordered By: [employer] on 09-05-2023 MCH (RBC) [Entitic mass] 28.7 pg 27.5-35.2 [facility] MCHC Auto (RBC) [Mass/Vol]Or dered By: [employer] on 09-05-2023 MCHC (RBC) [Mass/Vol] 34.1 g/dL 32.5-35.6 [facility] MCV Auto (RBC) [Entitic vol] Ordered By: [employer] on 09-05-2023 MCV (RBC) [Entitic vol] 84.1 fL 83.5-101 [facility] Platelet mean volume Auto (B ld) [Entitic vol]Ordered By: [employer] on 09-05-2023 Platelet mean volume (Bld) [Entitic vol] 9.8 fL 6.6-10.1 [facility] Platelets Auto (Bld) [#/Vol] Ordered By: [employer] on 09-05-2023 Platelets (Bld) [#/Vol] 236 10*3/uL 150-450 [facility] RBC Auto (Bld) [#/Vol]Ordere d By: [employer] on 09-05-2023 RBC (Bld) [#/Vol] 2.70 10*6/uL 3.90-5.60 [facility] Basophils Auto (Bld) [#/Vol] Ordered By: Immanuel Pinzon on 09-04-2023 Basophils (Bld) [#/Vol] 0.0 10*3/uL 0.0-0.2 [facility] Basophils/100 WBC Auto (Bld) Ordered By: Immanuel Pinzon on 09-04-2023 Basophils/100 WBC (Bld) 0.4 % . [facility] Complete Blood Count Auto Di ffon 09-04-2023 Basophils (Bld) [#/Vol] 0.0 10*3/uL Normal 0.0-0.2 [facility] Comment on above: Result Comment: PERF ORMED BY:[place] [id number] [place], [place] [phone] MEDICAL DIRECTORAIRAM MAST M.D. Performed By: #### C BC ####[facility] [place] [address] [facility] Basophils/100 WBC (Bld) 0.4 % Normal . [facility] Comment on above: Performed By: #### C BC ####[address] Eosinophils (Bld) [#/Vol] 0.1 10*3/uL Normal 0.0-0.45 [facility] Comment on above: Performed By: #### C BC ####[address] Eosinophils/100 WBC (Bld) 0.8 % Normal . [facility] Comment on above: Performed By: #### C BC ####[address] Erythrocyte distribution width (RBC) [Ratio] 16.3 % High 12.0-14.8 [facility] Comment on above: Performed By: #### C BC ####[address] Hematocrit (Bld) [Volume fraction] 24.3 % Low 38.8-50.0 [facility] Comment on above: Performed By: #### C BC ####[address] Hemoglobin (Bld) [Mass/Vol] 8.2 g/dL Low 13.0-17.0 [facility] Comment on above: Performed By: #### C BC ####[address] Lymphocytes (Bld) [#/Vol] 1.3 10*3/uL Normal 1.00-4.8 [facility] Comment on above: Performed By: #### C BC ####[address] Lymphocytes/100 WBC (Bld) 11.7 % Normal . [facility] Comment on above: Performed By: #### C BC ####[address] MCH (RBC) [Entitic mass] 28.3 pg Normal 27.5-35.2 [facility] Comment on above: Performed By: #### C BC ####[address] MCV (RBC) [Entitic vol] 84.5 fL Normal 83.5-101 [facility] Comment on above: Performed By: #### C BC ####[address] Mean Corpuscular HGB Conc 33.5 g/dL Normal 32.5-35.6 [facility] Comment on above: Performed By: #### C BC ####[address] Monocytes (Bld) [#/Vol] 1.9 10*3/uL High 0.0-0.8 [facility] Comment on above: Performed By: #### C BC ####[address] [address] Monocytes/100 WBC (Bld) 17.9 % Normal . [facility] Comment on above: Result Comment: Abso lute monocytosis is commonly reactive in nature. However, if unexplained, recommend follow-up CBC in 3 months to evaluate for persistence. Performed By: #### C BC ####[address] Neutrophils (Bld) [#/Vol] 7.4 10*3/uL Normal 1.8-7.7 [facility] Comment on above: Performed By: #### C BC ####[address] Neutrophils/100 WBC (Bld) 69.2 % Normal . The [facility] Comment on above: Performed By: #### C BC ####[address] NRBC% 0.2 /100{WBC} Normal 0-0.5 The [facility] Comment on above: Performed By: #### C BC ####[address] Platelet mean volume (Bld) [Entitic vol] 10.2 fL High 6.6-10.1 The [facility] Comment on above: Performed By: #### C BC ####[address] [address] [place] [address] [facility] Platelets (Bld) [#/Vol] 206 10*3/uL Normal 150-450 The [facility] Comment on above: Performed By: #### C BC ####[address] [address] [facility] RBC (Bld) [#/Vol] 2.88 10*6/uL Low 3.90-5.60 The [facility] Comment on above: Performed By: #### C BC ####[address] [address] [facility] WBC (Bld) [#/Vol] 10.7 10*3/uL High 4.1-10.5 The [facility] Comment on above: Performed By: #### C BC ####[id number] [facility] Eosinophils Auto (Bld) [#/Vo l]Ordered By: Immanuel Pinzon on 09-04-2023 Eosinophils (Bld) [#/Vol] 0.1 10*3/uL 0.0-0.45 [facility] Eosinophils/100 WBC Auto (Bl d)Ordered By: Immanuel Pinzon on 09-04-2023 Eosinophils/100 WBC (Bld) 0.8 % . [facility] Glucose Poct Glucometerson 0 09-04-2023 Glucose [Mass/Vol] 381 mg/dL Normal The [facility] Comment on above: Result Comment: [facility] Glucose Reference Range is dependent on time and content of last meal. Glucose of more than 200 mg/dL in a nonstressed, ambulatory subject supports the diagnosis of Diabetes Mellitus.PERFORMED BY:[address] [place], [place] [phone] MEDICAL DIRECTORAIRAM MAST M.D. Performed By: #### G LULS ####Point of Care testing, Commemt1 Normal The [facility] Comment on above: Result Comment: Glu2 : WILL NOTIFY DR/ROCÍOERFORMED BY:[address] [place], [place] [phone] MEDICAL DIRECTORAIRAM MAST M.D. Performed By: #### G LULS ####Point of Care testing, Glucose [Mass/Vol] 464 mg/dL Off scale high Th e [facility] Comment on above: Result Comment: [place] om Glucose Reference Range is dependent on time and content of last meal. Glucose of more than 200 mg/dL in a nonstressed, ambulatory subject supports the diagnosis of Diabetes Mellitus. Performed By: #### G LULS ####Point of Care testing, Glucose [Mass/Vol] 381 mg/dL Normal The [facility] Comment on above: Result Comment: [place] om Glucose Reference Range is dependent on time and content of last meal. Glucose of more than 200 mg/dL in a nonstressed, ambulatory subject supports the diagnosis of Diabetes Mellitus.PERFORMED BY:[facility] [place], [place] [phone] MEDICAL DIRECTORAIRAM MAST M.D. Performed By: #### G LULS ####Point of Care testing, Lymphocytes Auto (Bld) [#/Vo l]Ordered By: Immanuel Pinzon on 09-04-2023 Lymphocytes (Bld) [#/Vol] 1.3 10*3/uL 1.00-4.8 [facility] Lymphocytes/100 WBC Auto (Bl d)Ordered By: Immanuel Pinzon on 09-04-2023 Lymphocytes/100 WBC (Bld) 11.7 % . [facility] Monocytes Auto (Bld) [#/Vol] Ordered By: Immanuel Pinzon on 09-04-2023 Monocytes (Bld) [#/Vol] 1.9 10*3/uL 0.0-0.8 [facility] Monocytes/100 WBC Auto (Bld) Ordered By: Immanuel Pinzon on 09-04-2023 Monocytes/100 WBC (Bld) 17.9 % . [facility] Comment on above: Absolute monocytosis is commonly reactive in nature. However, if unexplained, recommend follow-up CBC in 3 months to evaluate for persistence. Neutrophils Auto (Bld) [#/Vo l]Ordered By: Immanuel Pinzon on 09-04-2023 Neutrophils (Bld) [#/Vol] 7.4 10*3/uL 1.8-7.7 [facility] Neutrophils/100 WBC Auto (Bl d)Ordered By: Immanuel Pinzon on 09-04-2023 Neutrophils/100 WBC (Bld) 69.2 % . [facility] Nucleated erythrocytes [Pres ence] in Blood by Automated countOrdered By: Immanuel Pinzon on 09-04-2023 Nucleated RBC Auto Ql (Bld) 0.2 /100{WBC} 0-0.5 [facility] WBC Auto (Bld) [#/Vol]Ordere d By: Immanuel Pinzon on 09-04-2023 WBC (Bld) [#/Vol] 10.7 10*3/uL 4.1-10.5 [facility] Glucose Poct Glucometerson 0 09-03-2023 Glucose [Mass/Vol] 195 mg/dL Normal The [facility] Comment on above: Result Comment: [facility] Glucose Reference Range is dependent on time and content of last meal. Glucose of more than 200 mg/dL in a nonstressed, ambulatory subject supports the diagnosis of Diabetes Mellitus.PERFORMED BY:[address] [place], [place] [phone] MEDICAL HUMBLE MAST M.D. Performed By: #### G LULS ####Point of Care testing, Glucose [Mass/Vol] 83 mg/dL Normal The [facility] Comment on above: Result Comment: [facility] Glucose Reference Range is dependent on time and content of last meal. Glucose of more than 200 mg/dL in a nonstressed, ambulatory subject supports the diagnosis of Diabetes Mellitus.PERFORMED BY:[address] [place], [place] [phone] MEDICAL HUMBLE MAST M.D. Performed By: #### G LULS ####Point of Care testing, Glucose [Mass/Vol] 334 mg/dL Normal The [facility] Comment on above: Result Comment: [facility] Glucose Reference Range is dependent on time and content of last meal. Glucose of more than 200 mg/dL in a nonstressed, ambulatory subject supports the diagnosis of Diabetes Mellitus.PERFORMED BY:[address] [place], [place] [phone] MEDICAL DIRECTORAIRAM MAST M.D. Performed By: #### G LULS ####Point of Care testing, Glucose [Mass/Vol] 144 mg/dL Normal The [facility] Comment on above: Result Comment: [place] Glucose Reference Range is dependent on time and content of last meal. Glucose of more than 200 mg/dL in a nonstressed, ambulatory subject supports the diagnosis of Diabetes Mellitus.PERFORMED BY:[address] [place], [place] [phone] MEDICAL DIRECTORAIRAM MAST M.D. Performed By: #### G LULS ####Point of Care testing, Glucose [Mass/Vol] 72 mg/dL Normal The [facility] Comment on above: Result Comment: [facility] Glucose Reference Range is dependent on time and content of last meal. Glucose of more than 200 mg/dL in a nonstressed, ambulatory subject supports the diagnosis of Diabetes Mellitus.PERFORMED BY:[address] [place], [place] [phone] MEDICAL DIRECTORAIRAM MAST M.D. Performed By: #### G LULS ####Point of Care testing, Hemogram CBC Without Diffon 09-03-2023 Erythrocyte distribution width (RBC) [Ratio] 16.6 % High 12.0-14.8 The [facility] Comment on above: Performed By: #### C BCNO ####[address] [address] [facility] Hematocrit (Bld) [Volume fraction] 20.3 % Low 38.8-50.0 The [facility] Comment on above: Performed By: #### C BCNO ####[address] [address] [facility] Hemoglobin (Bld) [Mass/Vol] 6.9 g/dL Low 13.0-17.0 The [facility] Comment on above: Performed By: #### C BCNO ####[address] [address] [facility] MCH (RBC) [Entitic mass] 28.2 pg Normal 27.5-35.2 [facility] Comment on above: Performed By: #### C BCNO ####[id number] [facility] MCV (RBC) [Entitic vol] 82.8 fL Low 83.5-101 [facility] Comment on above: Performed By: #### C BCNO ####[id number] [facility] Mean Corpuscular HGB Conc 34.0 g/dL Normal 32.5-35.6 The [facility] Comment on above: Performed By: #### C BCNO ####[id number] [facility] Platelet mean volume (Bld) [Entitic vol] 11.0 fL High 6.6-10.1 The [facility] Comment on above: Result Comment: PERF ORMED BY:[address] [place], [place] [phone] MEDICAL DIRECTORAIRAM MAST M.D. Performed By: #### C BCNO ####[id number] [facility] Platelets (Bld) [#/Vol] 152 10*3/uL Normal 150-450 [facility] Comment on above: Performed By: #### C BCNO ####[id number] [facility] RBC (Bld) [#/Vol] 2.45 10*6/uL Low 3.90-5.60 The [facility] Comment on above: Performed By: #### C BCNO ####[id number] [facility] WBC (Bld) [#/Vol] 9.5 10*3/uL Normal 4.1-10.5 The [facility] Comment on above: Performed By: #### C BCNO ####[facility] [id number] [place] [address] [facility] Glucose Poct Glucometerson 0 09-02-2023 Glucose [Mass/Vol] 390 mg/dL Normal The [facility] Comment on above: Result Comment: [place] om Glucose Reference Range is dependent on time and content of last meal. Glucose of more than 200 mg/dL in a nonstressed, ambulatory subject supports the diagnosis of Diabetes Mellitus.PERFORMED BY:[address] [place], [place] [phone] MEDICAL DIRECTORAIRAM MAST M.D. Performed By: #### G LULS ####Point of Care testing, Commemt1 Normal The [facility] Comment on above: Result Comment: Glu2 : WILL NOTIFY DR/GALINAFORMED BY:[address] [place], [place] [phone] MEDICAL DIRECTORAIRAM MAST M.D. Performed By: #### G LULS ####Point of Care testing, Glucose [Mass/Vol] 470 mg/dL Off scale high Th e [facility] Comment on above: Result Comment: [place] om Glucose Reference Range is dependent on time and content of last meal. Glucose of more than 200 mg/dL in a nonstressed, ambulatory subject supports the diagnosis of Diabetes Mellitus. Performed By: #### G LULS ####Point of Care testing, Glucose [Mass/Vol] 306 mg/dL Normal The [facility] Comment on above: Result Comment: [place] om Glucose Reference Range is dependent on time and content of last meal. Glucose of more than 200 mg/dL in a nonstressed, ambulatory subject supports the diagnosis of Diabetes Mellitus.PERFORMED BY:[address] [place], [place] [phone] MEDICAL DIRECTORAIRAM MAST M.D. Performed By: #### G LULS ####Point of Care testing, Commemt1 Glu2: Cleaned Meter Normal The [facility] Comment on above: Result Comment: PERF ORMED BY:[address] [place] [place], [place] [phone] MEDICAL DIRECTORAIRAM MAST M.D. Performed By: #### G LULS ####Point of Care testing, Glucose [Mass/Vol] 77 mg/dL Normal [facility] Comment on above: Result Comment: [place] om Glucose Reference Range is dependent on time and content of last meal. Glucose of more than 200 mg/dL in a nonstressed, ambulatory subject supports the diagnosis of Diabetes Mellitus. Performed By: #### G LULS ####Point of Care testing, Commemt1 Normal The [facility] Comment on above: Result Comment: Glu2 : FOLLOW HYPOGLYCEMICPERFORMED BY:[address] [place], [place] [phone] MEDICAL DIRECTORAIRAM MAST M.D. Performed By: #### G LULS ####Point of Care testing, Glucose [Mass/Vol] 51 mg/dL Off scale low The [facility] Comment on above: Result Comment: [place] om Glucose Reference Range is dependent on time and content of last meal. Glucose of more than 200 mg/dL in a nonstressed, ambulatory subject supports the diagnosis of Diabetes Mellitus. Performed By: #### G LULS ####Point of Care testing, Glucose [Mass/Vol] 126 mg/dL Normal [facility] Comment on above: Result Comment: [place] om Glucose Reference Range is dependent on time and content of last meal. Glucose of more than 200 mg/dL in a nonstressed, ambulatory subject supports the diagnosis of Diabetes Mellitus.PERFORMED BY:[address] [place], [place] [phone] MEDICAL DIRECTORAIRAM MAST M.D. Performed By: #### G LULS ####Point of Care testing, Glucose [Mass/Vol] 60 mg/dL Off scale low The [facility] Comment on above: Result Comment: [place] om Glucose Reference Range is dependent on time and content of last meal. Glucose of more than 200 mg/dL in a nonstressed, ambulatory subject supports the diagnosis of Diabetes Mellitus.PERFORMED BY:[address] [place], [place] [phone] MEDICAL DIRECTORAIRAM MAST M.D. Performed By: #### G LULS ####Point of Care testing, Glucose [Mass/Vol] 89 mg/dL Normal [facility] Comment on above: Result Comment: [place] om Glucose Reference Range is dependent on time and content of last meal. Glucose of more than 200 mg/dL in a nonstressed, ambulatory subject supports the diagnosis of Diabetes Mellitus.PERFORMED BY:[address] [place], [place] [phone] MEDICAL DIRECTORAIRAM MAST M.D. Performed By: #### G LULS ####Point of Care testing, Commemt1 Normal [facility] Comment on above: Result Comment: Glu2 : Will Repeat TestPERFORMED BY:[address] [place], [place] [phone] MEDICAL DIRECTORAIRAM MAST M.D. Performed By: #### G LULS ####Point of Care testing, Glucose [Mass/Vol] 55 mg/dL Off scale low The [facility] Comment on above: Result Comment: [place] om Glucose Reference Range is dependent on time and content of last meal. Glucose of more than 200 mg/dL in a nonstressed, ambulatory subject supports the diagnosis of Diabetes Mellitus. Performed By: #### G LULS ####Point of Care testing, Commemt1 Normal [facility] Comment on above: Result Comment: Glu2 : Will Repeat TestPERFORMED BY:[address] [place], [place] [phone] MEDICAL DIRECTORAIRAM MAST M.D. Performed By: #### G LULS ####Point of Care testing, Glucose [Mass/Vol] 55 mg/dL Off scale low The [facility] Comment on above: Result Comment: [place] om Glucose Reference Range is dependent on time and content of last meal. Glucose of more than 200 mg/dL in a nonstressed, ambulatory subject supports the diagnosis of Diabetes Mellitus. Performed By: #### G LULS ####Point of Care testing, Commemt1 Normal [facility] Comment on above: Result Comment: Glu2 : WILL NOTIFY DR/RN Performed By: #### G LULS ####Point of Care testing, Commemt2 Will Repeat Test Normal [facility] Comment on above: Result Comment: PERF ORMED BY:[address] [place], [place] [phone] MEDICAL DIRECTORAIRAM MAST M.D. Performed By: #### G LULS ####Point of Care testing, Glucose [Mass/Vol] 42 mg/dL Off scale low The [facility] Comment on above: Result Comment: [facility] Glucose Reference Range is dependent on time and content of last meal. Glucose of more than 200 mg/dL in a nonstressed, ambulatory subject supports the diagnosis of Diabetes Mellitus. Performed By: #### G LULS ####Point of Care testing, Hemoglobin and Hematocriton 09-02-2023 Hematocrit (Bld) [Volume fraction] 21.6 % Low 38.8-50.0 The [facility] Comment on above: Result Comment: PERF ORMED BY:[address] [place], [place] [phone] MEDICAL DIRECTORAIRAM MAST M.D. Performed By: #### H H ####[id number] [facility] Hemoglobin (Bld) [Mass/Vol] 7.5 g/dL Low 13.0-17.0 [facility] Comment on above: Performed By: #### H H ####[id number] [facility] Hemogram CBC Without Diffon 09-02-2023 Erythrocyte distribution width (RBC) [Ratio] 15.8 % High 12.0-14.8 [facility] Comment on above: Performed By: #### C BCNO ####[id number] [facility] Hematocrit (Bld) [Volume fraction] 21.2 % Low 38.8-50.0 [facility] Comment on above: Performed By: #### C BCNO ####[id number] [facility] Hemoglobin (Bld) [Mass/Vol] 7.4 g/dL Low 13.0-17.0 [facility] Comment on above: Performed By: #### C BCNO ####[id number] [facility] MCH (RBC) [Entitic mass] 28.5 pg Normal 27.5-35.2 [facility] Comment on above: Performed By: #### C BCNO ####[id number] [facility] MCV (RBC) [Entitic vol] 82.4 fL Low 83.5-101 [facility] Comment on above: Performed By: #### C BCNO ####[id number] [facility] Mean Corpuscular HGB Conc 34.6 g/dL Normal 32.5-35.6 [facility] Comment on above: Performed By: #### C BCNO ####[id number] [facility] Platelet mean volume (Bld) [Entitic vol] 10.5 fL High 6.6-10.1 The [facility] Comment on above: Result Comment: PERF ORMED BY:[address] [place], [place] [phone] MEDICAL DIRECTORAIRAM MAST M.D. Performed By: #### C BCNO ####[id number] [facility] Platelets (Bld) [#/Vol] 106 10*3/uL Low 150-450 [facility] Comment on above: Performed By: #### C BCNO ####[id number] [facility] RBC (Bld) [#/Vol] 2.58 10*6/uL Low 3.90-5.60 [facility] Comment on above: Performed By: #### C BCNO ####[address] [address] [place] [address] [facility] WBC (Bld) [#/Vol] 10.5 10*3/uL Normal 4.1-10.5 [facility] Comment on above: Performed By: #### C BCNO ####[address] [place] [address] [facility] No Panel InformationOrdered By: [employer] on 09-02-2023 Bedside Glucose #2 Comment Will repeat test [facility] Acanthocytes [Presence] in B lood by Light microscopyOrdered By: [employer] on 09-01-2023 Acanthocytes LM Ql (Bld) Slight [facility] Anisocytosis LM Ql (Bld)Orde red By: [employer] on 09-01-2023 Anisocytosis Ql (Bld) Moderate [facility] Band form neutrophils/100 WB C Manual cnt (Bld)Ordered By: [employer] on 09-01-2023 Band form neutrophils/100 WBC (Bld) 4 % 0-5 [facility] Basic Metabolic Panelon 08-13 Anion gap [Moles/Vol] 10.6 mmol/L Normal 6.0-15.0 [facility] Comment on above: Performed By: #### H S TROP, BMP, DIFF CBC ####[address] [place] [id number] [facility] Calcium [Mass/Vol] 7.7 mg/dL Low 8.6-10.3 [facility] Comment on above: Performed By: #### H S TROP, BMP, DIFF CBC ####[facility] [place] [id number] [facility] Chloride [Moles/Vol] 106 mmol/L Normal 98-107 [facility] Comment on above: Performed By: #### H S TROP, BMP, DIFF CBC ####[facility] [place] [address] [facility] CO2 [Moles/Vol] 27.3 mmol/L Normal 21.0-31.0 [facility] Comment on above: Performed By: #### H S TROP, BMP, DIFF CBC ####[address] [place] [address] [facility] Creatinine [Mass/Vol] 0.81 mg/dL Normal 0.70-1.30 [facility] Comment on above: Performed By: #### H S TROP, BMP, DIFF CBC ####[address] [address] [facility] Creatinine Clr Calc Pharmacy 59.91 Normal [facility] Comment on above: Result Comment: PERF ORMED BY:[address] [place], [place] [phone] MEDICAL HUMBLE MAST M.D. Performed By: #### H S TROP BMP, DIFF CBC ####[id number] [facility] GFR/1.73 sq M.predicted MDRD (S/P/Bld) [Vol rate/Area] mL/min/{1.73_m2} Normal [facility] Comment on above: Performed By: #### H S TROP BMP, DIFF CBC ####[id number] [facility] Glucose [Mass/Vol] 79 mg/dL Normal 70-100 [facility] Comment on above: Result Comment: [place] Glucose Reference Range is dependent on time and content of last meal. Glucose of more than 200 mg/dL in a nonstressed, ambulatory subject supports the diagnosis of Diabetes Mellitus. ADA recommended reference range Performed By: #### H S TROP, BMP, DIFF CBC ####[place] [id number] [facility] Potassium [Moles/Vol] 3.9 mmol/L Normal 3.5-5.1 [facility] Comment on above: Performed By: #### H S TROP, BMP, DIFF CBC ####[place] [id number] [facility] Sodium [Moles/Vol] 140 mmol/L Normal 136-145 [facility] Comment on above: Performed By: #### H S TROP, BMP, DIFF CBC ####[address] [place] [address] [place] Urea nitrogen [Mass/Vol] 37 mg/dL High 7-25 [facility] Comment on above: Performed By: #### H S TROP, BMP, DIFF CBC ####[address] [place] cells [Presence] in Blo od by Light microscopyOrdered By: [employer] on 09-01-2023 [place] cells LM Ql (Bld) Slight [facility] Calcium [Mass/volume] in Ser um or PlasmaOrdered By: [employer] on 09-01-2023 Calcium [Mass/Vol] 7.7 mg/dL 8.6-10.3 [facility] Carbon dioxide, total [Moles /volume] in Serum or PlasmaOrdered By: [employer] on 09-01-2023 CO2 [Moles/Vol] 27.3 mmol/L 21.0-31.0 [facility] Chloride [Moles/volume] in S jihan or PlasmaOrdered By: [employer] on 09-01-2023 Chloride [Moles/Vol] 106 mmol/L 98-107 [facility] Creatinine [Mass/volume] in Serum or PlasmaOrdered By: [employer] on 09-01-2023 Creatinine [Mass/Vol] 0.81 mg/dL 0.70-1.30 [facility] Diff and CBCon 09-01-2023 Acanthocytes Slight Normal [facility] [facility] Comment on above: Performed By: #### H S TROP, BMP, DIFF CBC ####[address] Anisocytosis Ql (Bld) Moderate Normal [facility] Comment on above: Performed By: #### H S TROP, BMP, DIFF CBC ####[address] Band form neutrophils/100 WBC (Bld) 4 % Normal 0-5 [facility] Comment on above: Performed By: #### H S TROP, BMP, DIFF CBC ####[address] Crenated RBC Slight Normal [facility] Comment on above: Performed By: #### H S TROP, BMP, DIFF CBC ####[address] Erythrocyte distribution width (RBC) [Ratio] 16.4 % High 12.0-14.8 [facility] Comment on above: Performed By: #### H S TROP, BMP, DIFF CBC ####[address] Hematocrit (Bld) [Volume fraction] 20.9 % Low 38.8-50.0 [facility] Comment on above: Performed By: #### H S TROP, BMP, DIFF CBC ####[address] Hemoglobin (Bld) [Mass/Vol] 7.3 g/dL Low 13.0-17.0 [facility] Comment on above: Performed By: #### H S TROP, BMP, DIFF CBC ####[address] Hypochromasia Moderate Normal [facility] Comment on above: Performed By: #### H S TROP, BMP, DIFF CBC ####[address] Large Platelets Slight Normal [facility] Comment on above: Result Comment: PERF ORMED BY:[address] [place], [place] [phone] MEDICAL DIRECTORAIRAM MAST M.D. Performed By: #### H S TROP, BMP, DIFF CBC ####[address] Lymphocytes/100 WBC (Bld) 9 % Low 18-42 [facility] Comment on above: Performed By: #### H S TROP, BMP, DIFF CBC ####[address] MCH (RBC) [Entitic mass] 28.2 pg Normal 27.5-35.2 [facility] Comment on above: Performed By: #### H S TROP, BMP, DIFF CBC ####[place] [id number] [facility] MCV (RBC) [Entitic vol] 80.8 fL Low 83.5-101 [facility] Comment on above: Performed By: #### H S TROP, BMP, DIFF CBC ####[place] [id number] [facility] Mean Corpuscular HGB Conc 34.9 g/dL Normal 32.5-35.6 [facility] Comment on above: Performed By: #### H S TROP, BMP, DIFF CBC ####[address] Microcytosis Moderate Normal [facility] Comment on above: Performed By: #### H S TROP, BMP, DIFF CBC ####[address] Monocytes/100 WBC (Bld) 7 % Normal 2-11 [facility] Comment on above: Performed By: #### H S TROP, BMP, DIFF CBC ####[address] Ovalocytes Slight Normal [facility] Comment on above: Performed By: #### H S TROP, BMP, DIFF CBC ####[place] [id number] [facility] Platelet Estimate Decreased Normal Normal [facility] Comment on above: Performed By: #### H S TROP, BMP, DIFF CBC ####[address] Platelet mean volume (Bld) [Entitic vol] 10.9 fL High 6.6-10.1 [facility] Comment on above: Result Comment: PERF ORMED BY:[address] [place], [place] [phone] MEDICAL HUMBLE MAST M.D. Performed By: #### H S TROP, BMP, DIFF CBC ####[address] Platelets (Bld) [#/Vol] 114 10*3/uL Low 150-450 [facility] Comment on above: Performed By: #### H S TROP, BMP, DIFF CBC ####[address] Poikilocytosis Moderate Normal [facility] Comment on above: Performed By: #### H S TROP, BMP, DIFF CBC ####[address] Polychromasia Slight Normal [facility] Comment on above: Performed By: #### H S TROP, BMP, DIFF CBC ####[address] RBC (Bld) [#/Vol] 2.59 10*6/uL Low 3.90-5.60 [facility] Comment on above: Performed By: #### H S TROP, BMP, DIFF CBC ####[address] Schistocytes Slight Normal [facility] Comment on above: Performed By: #### H S TROP, BMP, DIFF CBC ####[address] Segmented neutrophils/100 WBC (Bld) 81 % High 50-70 [facility] Comment on above: Performed By: #### H S TROP, BMP, DIFF CBC ####[address] Target Cells Slight Normal [facility] Comment on above: Performed By: #### H S TROP, BMP, DIFF CBC ####[address] WBC (Bld) [#/Vol] 10.8 10*3/uL High 4.1-10.5 [facility] Comment on above: Performed By: #### H S TROP, BMP, DIFF CBC ####[address] Glucose Poct Glucometerson 0 09-01-2023 Glucose [Mass/Vol] 166 mg/dL Normal The [facility] Comment on above: Result Comment: [place] om Glucose Reference Range is dependent on time and content of last meal. Glucose of more than 200 mg/dL in a nonstressed, ambulatory subject supports the diagnosis of Diabetes Mellitus.PERFORMED BY:[facility] [place], [place] [phone] MEDICAL DIRECTORAIRAM MAST M.D. Performed By: #### G LULS ####Point of Care testing, Commemt1 Glu2: Cleaned Meter Normal [facility] Comment on above: Result Comment: PERF ORMED BY:[place] [address] [place], [place] [phone] MEDICAL DIRECTORAIRAM MAST M.D. Performed By: #### G LULS ####Point of Care testing, Glucose [Mass/Vol] 79 mg/dL Normal [facility] Comment on above: Result Comment: [place] om Glucose Reference Range is dependent on time and content of last meal. Glucose of more than 200 mg/dL in a nonstressed, ambulatory subject supports the diagnosis of Diabetes Mellitus. Performed By: #### G LULS ####Point of Care testing, Glucose [Mass/volume] in Ser um or PlasmaOrdered By: [employer] on 09-01-2023 Glucose [Mass/Vol] 79 mg/dL 70-100 [facility] Comment on above: ADA recommended refe rence rangeRandom Glucose Reference Range is dependent on time and content of last meal. Glucose of more than 200 mg/dL in a nonstressed, ambulatory subject supports the diagnosis of Diabetes Mellitus. Hypochromia LM Ql (Bld)Order ed By: [employer] on 09-01-2023 Hypochromia Ql (Bld) Moderate [facility] J[place] 09-01-2023 L Normal [facility] Lymphocytes/100 WBC Manual c nt (Bld)Ordered By: [employer] on 09-01-2023 Lymphocytes/100 WBC (Bld) 9 % 18-42 [facility] Microcytes LM Ql (Bld)Ordere d By: [employer] on 09-01-2023 Microcytes Ql (Bld) Moderate [facility] Monocytes/100 WBC Manual cnt (Bld)Ordered By: [employer] on 09-01-2023 Monocytes/100 WBC (Bld) 7 % 2-11 [facility] No Panel InformationOrdered By: [employer] on 09-01-2023 Estimated GFR (CKD-EPI) > 60.0 mL/Min [facility] Creatinine Clearance (Chem 59.91 [facility] Ovalocyte detectionOrdered B y: [employer] on 09-01-2023 Ovalocytes LM Ql (Bld) [facility] Platelet adequacy [Presence] in Blood by Light microscopyOrdered By: [employer] on 09-01-2023 Platelets LM Ql (Bld) Decreased Normal [facility] Platelet morphology finding [Identifier] in BloodOrdered By: [employer] on 09-01-2023 Platelet morphology finding Nom (Bld) N/A [facility] Platelets Large [Presence] i n Blood by Light microscopyOrdered By: [employer] on 09-01-2023 Platelets Large LM Ql (Bld) [facility] Poikilocytosis [Presence] in Blood by Light microscopyOrdered By: [employer] on 09-01-2023 Poikilocytosis LM Ql (Bld) [facility] Polychromasia [Presence] in Blood by Light microscopyOrdered By: [employer] on 09-01-2023 Polychromasia LM Ql (Bld) [facility] Potassium [Moles/volume] in Serum or PlasmaOrdered By: [employer] on 09-01-2023 Potassium [Moles/Vol] 3.9 mmol/L 3.5-5.1 [facility] RBC morphologyOrdered By: Jenni [employer] on 09-01-2023 RBC morphology finding Nom (Bld) N/A [facility] Schistocytes [Presence] in B lood by Light microscopyOrdered By: [employer] on 09-01-2023 Schistocytes LM Ql (Bld) [facility] Segmented neutrophils/100 WB C Manual cnt (Bld)Ordered By: [employer] on 09-01-2023 Segmented neutrophils/100 WBC (Bld) 81 % 50-70 [facility] Serum or plasma anion gap de terminationOrdered By: [employer] on 09-01-2023 Anion gap [Moles/Vol] 10.6 mmol/L 6.0-15.0 [facility] Sodium [Moles/volume] in Ser um or PlasmaOrdered By: [employer] on 09-01-2023 Sodium [Moles/Vol] 140 mmol/L 136-145 [facility] Target cellsOrdered By: Andr bebeto Gaming on 09-01-2023 Target cells LM Ql (Bld) Slight [facility] Troponin I High Sensitivityo n 09-01-2023 Troponin I High Sensitivity 779.8 pg/mL Off scale high 0.0-20.0 [facility] Comment on above: Result Comment: Crit ical Result : Called to and read back by: EDNA MORALES at: 09/01/2023 06:23:23 by:TANIAPERFORMED BY:[address] [place], [place] [phone] MEDICAL DIRECTORAIRAM MAST M.D. Performed By: #### H S TROP, BMP, DIFF CBC ####[facility] [place] [address] [facility] Troponin I.cardiac [Mass/vol ume] in Serum or Plasma by Detection limit <= 0.01 ng/Ordered By: [employer] on 09-01-2023 Troponin I.cardiac DL <= 0.01 ng/mL [Mass/Vol] 779.8 pg/mL 0.0-20.0 [facility] Comment on above: Critical Result : Ca lled to and read back by: EDNA MORALES at: 09/01/2023 06:23:23 by:TANIA Urea nitrogen [Mass/volume] in Serum or PlasmaOrdered By: [employer] on 09-01-2023 Urea nitrogen [Mass/Vol] 37 mg/dL 7-25 [facility] XR cervical spine LAT/FLX/EX Ton 09-01-2023 XR cervical spine LAT/FLX/EXT Normal [facility] Diff and CBCon 08-31-2023 Acanthocytes Slight Normal [facility] Comment on above: Performed By: #### D IFF CBC, HS TROP ####[place] [id number] [place] [id number] [facility] Anisocytosis Ql (Bld) Moderate Normal [facility] Comment on above: Performed By: #### D IFF CBC, HS TROP ####[place] [phone] [facility] Band form neutrophils/100 WBC (Bld) 5 % Normal 0-5 [facility] Comment on above: Performed By: #### D IFF CBC, HS TROP ####[place] [id number] [facility] Erythrocyte distribution width (RBC) [Ratio] 16.3 % High 12.0-14.8 [facility] Comment on above: Performed By: #### D IFF CBC, HS TROP ####[place] [id number] [facility] Hematocrit (Bld) [Volume fraction] 22.2 % Low 38.8-50.0 [facility] Comment on above: Performed By: #### D IFF CBC, HS TROP ####[place] [id number] [facility] Hemoglobin (Bld) [Mass/Vol] 7.6 g/dL Low 13.0-17.0 [facility] Comment on above: Performed By: #### D IFF CBC, HS TROP ####[place] [id number] [facility] Hypochromasia Moderate Normal [facility] Comment on above: Performed By: #### D IFF CBC, HS TROP ####[place] [id number] [facility] Lymphocytes/100 WBC (Bld) 12 % Low 18-42 [facility] Comment on above: Performed By: #### D IFF CBC, HS TROP ####[address] [address] [facility] MCH (RBC) [Entitic mass] 27.4 pg Low 27.5-35.2 [facility] Comment on above: Performed By: #### D IFF CBC, HS TROP ####[place] [address] [place] [id number] [facility] MCV (RBC) [Entitic vol] 80.2 fL Low 83.5-101 [facility] Comment on above: Performed By: #### D IFF CBC, HS TROP ####[place] [id number] [facility] Mean Corpuscular HGB Conc 34.2 g/dL Normal 32.5-35.6 [facility] Comment on above: Performed By: #### D IFF CBC, HS TROP ####[place] [id number] [facility] Monocytes/100 WBC (Bld) 5 % Normal 2-11 [facility] Comment on above: Performed By: #### D IFF CBC, HS TROP ####[place] [phone] [facility] Platelet Estimate Decreased Normal Normal [facility] Comment on above: Performed By: #### D IFF CBC, TROP ####[place] [phone] [facility] Platelet mean volume (Bld) [Entitic vol] 10.5 fL High 6.6-10.1 [facility] Comment on above: Performed By: #### D IFF CBC, HS TROP ####[place] [phone] [facility] Platelet Morphology Normal Normal Normal [facility] Comment on above: Result Comment: PERF ORMED BY:[place] [address] [place], [place] [phone] MEDICAL HUMBLE MAST M.D. Performed By: #### D IFF CBC, HS TROP ####[place] [phone] [facility] Platelets (Bld) [#/Vol] 135 10*3/uL Low 150-450 [facility] Comment on above: Performed By: #### D IFF CBC, HS TROP ####[facility] [place] [address] [facility] Poikilocytosis Moderate Normal [facility] Comment on above: Performed By: #### D IFF CBC, HS TROP ####[place] [address] [place] [address] [facility] Polychromasia Slight Normal [facility] Comment on above: Performed By: #### D IFF CBC, HS TROP ####[place] [address] [place] [address] [facility] RBC (Bld) [#/Vol] 2.77 10*6/uL Low 3.90-5.60 [facility] Comment on above: Performed By: #### D IFF CBC, HS TROP ####[place] [address] [place] [address] [facility] Schistocytes Slight Normal [facility] Comment on above: Performed By: #### D IFF CBC, HS TROP ####[place] [address] [place] [address] [facility] Segmented neutrophils/100 WBC (Bld) 78 % High 50-70 [facility] Comment on above: Performed By: #### D IFF CBC, HS TROP ####[facility] [place] [address] [facility] Target Cells Slight Normal [facility] Comment on above: Performed By: #### D IFF CBC, HS TROP ####[place] [address] [place] [address] [facility] WBC (Bld) [#/Vol] 11.9 10*3/uL High 4.1-10.5 [facility] Comment on above: Performed By: #### D IFF CBC, HS TROP ####[place] [address] [place] [address] [facility] Glucose Poct Glucometerson 0 2 Glucose [Mass/Vol] 157 mg/dL Normal [facility] Comment on above: Result Comment: [place] Glucose Reference Range is dependent on time and content of last meal. Glucose of more than 200 mg/dL in a nonstressed, ambulatory subject supports the diagnosis of Diabetes Mellitus.PERFORMED BY:[place] [address] [place], [place] [phone] MEDICAL DIRECTORAIRAM MAST M.D. Performed By: #### G LULS ####Point of Care testing, Glucose [Mass/Vol] 159 mg/dL Normal [facility] Comment on above: Result Comment: [facility] Glucose Reference Range is dependent on time and content of last meal. Glucose of more than 200 mg/dL in a nonstressed, ambulatory subject supports the diagnosis of Diabetes Mellitus.PERFORMED BY:[place] [address] [place], [place] [phone] MEDICAL DIRECTORAIRAM MAST M.D. Performed By: #### G LULS ####Point of Care testing, Commemt1 Glu2: Cleaned Meter Normal [facility] Comment on above: Result Comment: PERF ORMED BY:[place] [address] [place], [place] [phone] MEDICAL DIRECTORAIRAM MAST M.D. Performed By: #### G LULS ####Point of Care testing, Glucose [Mass/Vol] 117 mg/dL Normal [facility] Comment on above: Result Comment: [facility] Glucose Reference Range is dependent on time and content of last meal. Glucose of more than 200 mg/dL in a nonstressed, ambulatory subject supports the diagnosis of Diabetes Mellitus. Performed By: #### G LULS ####Point of Care testing, LeukoReduced RBCon LeukoReduced RBC TRANSFUSED 09/03/23 0919 Normal [facility] Troponin I High Sensitivityo n 08-31-2023 Troponin I High Sensitivity 127.9 pg/mL Off scale high 0.0-20.0 [facility] Comment on above: Result Comment: Crit ical Result : Called to and read back by: MERCEDES LOPEZ at: 08/31/2023 19:40:50 by:[id number] BY:[facility] [place], [place] [phone] MEDICAL DIRECTORAIRAM MAST M.D. Performed By: #### D IFF CBC, HS TROP ####[facility] [id number] [place] [address] [place] Type and Screenon 08-31-2023 ABO and Rh group Nom (Bld) Blood group A Rh(D) positive Normal [facility] Comment on above: Order Comment: Trans fuse now? Y Number of units to transfuse now? 1 Transfuse now? Y Number of units to transfuse now? 1 Transfuse now? Y Number of units to transfuse now? 1 XR hip RT min 2V(w/wo pelvis )*on 07-27-2023 XR hip RT min 2V(w/wo pelvis)* Normal [facility] Activated partial thrombopla stin time (aPTT) in platelet poor plasma by coagulation aOrdered By: Federico Davis on 07-16-2023 aPTT Coag (PPP) [Time] 30.2 s 25.1-36.5 [facility] Comment on above: A hematocrit value g reater than 55% may lead to inaccurate results in coagulation testing. Patients having hematocrit values >55% require a special collection tube for coagulation studies. Please contact the laboratory at [phone] for redraw instructions. Anisocytosis [Presence] in B lood by Light microscopyOrdered By: Federico Davis on 07-16-2023 Anisocytosis Ql (Bld) Slight Normal [facility] Comment on above: Performed By: #### S CAN CBC, LYTES, BUN ####[facility] [place] [address] [facility] Automated basophil %Ordered By: Federico Davis on 07-16-2023 Basophils/100 WBC (Bld) 0.5 % Normal . [facility] Comment on above: Performed By: #### S CAN CBC, LYTES, BUN ####[facility] [id number] [place] [address] [facility] Automated basophil countOrde red By: Federico Davis on 07-16-2023 Basophils (Bld) [#/Vol] 0.0 10*3/uL Normal 0.0-0.2 [facility] Comment on above: Performed By: #### S CAN CBC, LYTES, BUN ####[address] Automated blood monocyte cou ntOrdered By: Federico Davis on 07-16-2023 Monocytes (Bld) [#/Vol] 1.3 10*3/uL High 0.0-0.8 [facility] Comment on above: Performed By: #### S CAN CBC, LYTES, BUN ####[address] Automated eosinophil %Ordere d By: Federico Davis on 07-16-2023 Eosinophils/100 WBC (Bld) 0.3 % Normal . [facility] Comment on above: Performed By: #### S CAN CBC, LYTES, BUN ####[address] Automated eosinophil countOr dered By: Federico Davis on 07-16-2023 Eosinophils (Bld) [#/Vol] 0.0 10*3/uL Normal 0.0-0.45 [facility] Comment on above: Performed By: #### S CAN CBC, LYTES, BUN ####[address] Automated monocyte %Ordered By: Federico Davis on 07-16-2023 Monocytes/100 WBC (Bld) 15.1 % Normal . [facility] Comment on above: Performed By: #### S CAN CBC, LYTES, BUN ####[address] Automated neutrophil %Ordere d By: Federico Davis on 07-16-2023 Neutrophils/100 WBC (Bld) 75.7 % Normal . [facility] Comment on above: Performed By: #### S CAN CBC, LYTES, BUN ####[address] Carbon dioxide, total [Moles /volume] in Serum or PlasmaOrdered By: Federico Davis on 07-16-2023 CO2 [Moles/Vol] 26.8 mmol/L Normal 21.0-31.0 [facility] Comment on above: Performed By: #### S CAN CBC, LYTES, BUN ####[place] [address] [place] [address] [facility] Chloride [Moles/volume] in S jihan or PlasmaOrdered By: Federico Davis on 07-16-2023 Chloride [Moles/Vol] 103 mmol/L Normal 98-107 [facility] Comment on above: Performed By: #### S CAN CBC, LYTES, BUN ####[address] [address] [facility] Coagulation Profileon 2023 aPTT Coag (Bld) [Time] 30.2 s Normal 25.1-36.5 [facility] Comment on above: Result Comment: A he matocrit value greater than 55% may lead to inaccurate results in coagulation testing. Patients having hematocrit values >55% require a special collection tube for coagulation studies. Please contact the laboratory at [phone] for redraw instructions.PERFORMED BY:[address] [place], [place] [phone] MEDICAL DIRECTORAIRAM MAST M.D. Performed By: #### P P ####[address] [address] [facility] Creatinineon 07-16-2023 GFR/1.73 sq M.predicted MDRD (S/P/Bld) [Vol rate/Area] mL/min/{1.73_m2} Normal [facility] Comment on above: Result Comment: PERF ORMED BY:[address] [place], [place] [phone] MEDICAL DIRECTORAIRMA MAST M.D. Performed By: #### C REAT ####[address] [address] [facility] Creatinine [Mass/volume] in Serum or PlasmaOrdered By: Federico Davis on 07-16-2023 Creatinine [Mass/Vol] 0.71 mg/dL Normal 0.70-1.30 [facility] Comment on above: Performed By: #### C REAT ####[facility] [id number] [place] [address] [facility] ECG 12 lead ECGon 07-16-2023 ECG 12 lead ECG Normal [facility] ECG 12 lead ECG Normal [facility] Erythrocyte distribution wid th [Ratio] by Automated countOrdered By: Federico Davis on 07-16-2023 Erythrocyte distribution width (RBC) [Ratio] 16.5 % High 12.0-14.8 [facility] Comment on above: Performed By: #### S CAN CBC, LYTES, BUN ####[place] [address] [place] [address] [facility] Erythrocytes [#/volume] in B lood by Automated countOrdered By: Federico Davis on 07-16-2023 RBC (Bld) [#/Vol] 4.17 10*6/uL Normal 3.90-5.60 [facility] Comment on above: Performed By: #### S CAN CBC, LYTES, BUN ####[facility] [id number] [place] [address] [facility] Glucose Glucometer (BldC) [M ass/Vol]Ordered By: Federico Davis on 07-16-2023 Glucose [Mass/Vol] 398 mg/dL [facility] Comment on above: Random Glucose Refer ence Range is dependent on time and content of last meal. Glucose of more than 200 mg/dL in a nonstressed, ambulatory subject supports the diagnosis of Diabetes Mellitus. Glucose Poct Glucometerson 0 07-16-2023 Commemt1 Glu2: Cleaned Meter Normal [facility] Comment on above: Result Comment: PERF ORMED BY:[facility] [place], [place] [phone] MEDICAL DIRECTORAIRAM MAST M.D. Performed By: #### G LULS ####Point of Care testing, Glucose [Mass/Vol] 398 mg/dL Normal [facility] Comment on above: Result Comment: [place] Glucose Reference Range is dependent on time and content of last meal. Glucose of more than 200 mg/dL in a nonstressed, ambulatory subject supports the diagnosis of Diabetes Mellitus. Performed By: #### G LULS ####Point of Care testing, Glucose [Mass/Vol] 96 mg/dL Normal [facility] Comment on above: Result Comment: [facility] Glucose Reference Range is dependent on time and content of last meal. Glucose of more than 200 mg/dL in a nonstressed, ambulatory subject supports the diagnosis of Diabetes Mellitus.PERFORMED BY:[address] [place], [place] [phone] MEDICAL DIRECTORAIRAM MAST M.D. Performed By: #### G LUMARYA ####Point of Care testing, Hematocrit [Volume Fraction] of Blood by Automated countOrdered By: Federico Davis on 07-16-2023 Hematocrit (Bld) [Volume fraction] 33.5 % Low 38.8-50.0 [facility] Comment on above: Performed By: #### S CAN CBC, LYTES, BUN ####[place] [id number] [facility] Hemoglobin [Mass/volume] in BloodOrdered By: Federico Davis on 07-16-2023 Hemoglobin (Bld) [Mass/Vol] 11.0 g/dL Low 13.0-17.0 [facility] Comment on above: Performed By: #### S CAN CBC, LYTES, BUN ####[place] [id number] [facility] Hypochromia LM Ql (Bld)Order ed By: Federico Davis on 07-16-2023 Hypochromia Ql (Bld) Marked [facility] INR in Platelet poor plasma by Coagulation assayOrdered By: Federico Davis on 07-16-2023 INR Coag (PPP) [Relative time] 1.1 {INR} Normal [facility] Comment on above: INR Therapeutic Rang e [...] - 4.5 Performed By: #### P P ####[address] Leukocytes [#/volume] correc robert for nucleated erythrocytes in Blood by Automated counOrdered By: Federico Davis on 07-16-2023 WBC corrected for nucl RBC Auto (Bld) [#/Vol] 8.4 10*3/uL 4.1-10.5 [facility] Leukocytes [#/volume] in Blo od by Automated countOrdered By: Federico Davis on 07-16-2023 WBC (Bld) [#/Vol] 8.4 10*3/uL Normal 4.1-10.5 [facility] Comment on above: Performed By: #### S CAN CBC, LYTES, BUN ####[address] Lymphocytes [#/volume] in Bl ood by Automated countOrdered By: Federico Davis on 07-16-2023 Lymphocytes (Bld) [#/Vol] 0.7 10*3/uL Low 1.00-4.8 [facility] Comment on above: Performed By: #### S CAN CBC, LYTES, BUN ####[address] Lymphocytes/100 leukocytes i n Blood by Automated countOrdered By: Federico Davis on 07-16-2023 Lymphocytes/100 WBC (Bld) 8.4 % Normal . [facility] Comment on above: Performed By: #### S CAN CBC, LYTES, BUN ####[address] MCH [Entitic mass] by Automa robert countOrdered By: Federico Davis on 07-16-2023 MCH (RBC) [Entitic mass] 26.4 pg Low 27.5-35.2 [facility] Comment on above: Performed By: #### S CAN CBC, LYTES, BUN ####[place] [id number] MCHC Auto (RBC) [Mass/Vol]Or dered By: Federico Davis on 07-16-2023 MCHC (RBC) [Mass/Vol] 32.8 g/dL 32.5-35.6 [facility] MCV [Entitic volume] by Auto mated countOrdered By: Federico Davis on 07-16-2023 MCV (RBC) [Entitic vol] 80.4 fL Low 83.5-101 [facility] Comment on above: Performed By: #### S CAN CBC, LYTES, BUN ####[address] Macrocytes LM Ql (Bld)Ordere d By: Federico Davis on 07-16-2023 Macrocytes Ql (Bld) Slight [facility] Neutrophils [#/volume] in Bl ood by Automated countOrdered By: Federico Davis on 07-16-2023 Neutrophils (Bld) [#/Vol] 6.3 10*3/uL Normal 1.8-7.7 [facility] Comment on above: Performed By: #### S CAN CBC, LYTES, BUN ####[address] No Panel InformationOrdered By: Federico Davis on 07-16-2023 Bedside Glucose Comment Glu2: cleaned meter [facility] Estimated GFR (CKD-EPI) > 60.0 mL/Min [facility] Creatinine Clearance (Chem N/A [facility] Nucleated erythrocytes [Pres ence] in Blood by Automated countOrdered By: Federico Davis on 07-16-2023 Nucleated RBC Auto Ql (Bld) 0.1 /100{WBC} 0-0.5 [facility] Platelet adequacy [Presence] in Blood by Light microscopyOrdered By: Federico Davis on 07-16-2023 Platelets LM Ql (Bld) Normal Normal [facility] Platelet mean volume [Entiti c volume] in Blood by Automated countOrdered By: Federico Davis on 07-16-2023 Platelet mean volume (Bld) [Entitic vol] 10.1 fL Normal 6.6-10.1 [facility] Comment on above: Performed By: #### S CAN CBC, LYTES, BUN ####[place] [phone] Platelet morphology finding [Identifier] in BloodOrdered By: Federico Davis on 07-16-2023 Platelet morphology finding Nom (Bld) N/A [facility] Platelets Large [Presence] i n Blood by Light microscopyOrdered By: Federico Davis on 07-16-2023 Platelets Large LM Ql (Bld) Slight [facility] Platelets [#/volume] in Bloo d by Automated countOrdered By: Federico Davis on 07-16-2023 Platelets (Bld) [#/Vol] 243 10*3/uL Normal 150-450 [facility] Comment on above: Performed By: #### S CAN CBC, LYTES, BUN ####[address] Poikilocytosis [Presence] in Blood by Light microscopyOrdered By: Federico Davis on 07-16-2023 Poikilocytosis LM Ql (Bld) Moderate [facility] Polychromasia [Presence] in Blood by Light microscopyOrdered By: Federico Davis on 07-16-2023 Polychromasia LM Ql (Bld) Moderate [facility] Potassium [Moles/volume] in Serum or PlasmaOrdered By: Federico Davis on 07-16-2023 Potassium [Moles/Vol] 4.2 mmol/L Normal 3.5-5.1 [facility] Comment on above: Performed By: #### S CAN CBC, LYTES, BUN ####[place] [phone] [place] [id number] [facility] Prothrombin time (PT)Ordered By: Federico Davis on 07-16-2023 PT Coag (PPP) [Time] 12.3 s Normal 9.0-12.9 [facility] Comment on above: A hematocrit value g reater than 55% may lead to inaccurate results in coagulation testing. Patients having hematocrit values >55% require a special collection tube for coagulation studies. Please contact the laboratory at [phone] for redraw instructions. Result Comment: A he matocrit value greater than 55% may lead to inaccurate results in coagulation testing. Patients having hematocrit values >55% require a special collection tube for coagulation studies. Please contact the laboratory at [phone] for redraw instructions. Performed By: #### P P ####[place] [id number] [facility] RBC morphologyOrdered By: Federico Davis on 07-16-2023 RBC morphology finding Nom (Bld) N/A [facility] Scan and CBCon 07-16-2023 Hypochromasia Marked Normal [facility] Comment on above: Performed By: #### S CAN CBC, LYTES, BUN ####[place] [phone] [facility] Large Platelets Slight Normal [facility] Comment on above: Result Comment: PERF ORMED BY:[address] [place], [place] [phone] MEDICAL DIRECTORAIRAM MAST M.D. Performed By: #### S CAN CBC, LYTES, BUN ####[address] [address] [facility] Macrocytosis Slight Normal [facility] Comment on above: Performed By: #### S CAN CBC, LYTES, BUN ####[place] [phone] [facility] Mean Corpuscular HGB Conc 32.8 g/dL Normal 32.5-35.6 [facility] Comment on above: Performed By: #### S CAN CBC, LYTES, BUN ####[place] [id number] [facility] NRBC% 0.1 /100{WBC} Normal 0-0.5 [facility] Comment on above: Performed By: #### S CAN CBC, LYTES, BUN ####[place] [address] [place] [id number] [facility] Platelet Estimate Normal Normal Normal [facility] Comment on above: Performed By: #### S CAN CBC, LYTES, BUN ####[place] [address] [place] [id number] [facility] Poikilocytosis Moderate Normal [facility] Comment on above: Performed By: #### S CAN CBC, LYTES, BUN ####[place] [phone] Polychromasia Moderate Normal [facility] Comment on above: Performed By: #### S CAN CBC, LYTES, BUN ####[place] [phone] Schistocytes Slight Normal [facility] Comment on above: Performed By: #### S CAN CBC, LYTES, BUN ####[address] Target Cells Moderate Normal [facility] Comment on above: Performed By: #### S CAN CBC, LYTES, BUN ####[address] Schistocytes [Presence] in B lood by Light microscopyOrdered By: Federico Davis on 07-16-2023 Schistocytes LM Ql (Bld) Slight [facility] Serum or plasma anion gap de terminationOrdered By: Federico Davis on 07-16-2023 Anion gap [Moles/Vol] 12.4 mmol/L Normal 6.0-15.0 [facility] Comment on above: Performed By: #### S CAN CBC, LYTES, BUN ####[address] Sodium [Moles/volume] in Ser um or PlasmaOrdered By: Federico Davis on 07-16-2023 Sodium [Moles/Vol] 138 mmol/L Normal 136-145 [facility] Comment on above: Performed By: #### S CAN CBC, LYTES, BUN ####[address] Target cellsOrdered By: Federico espino on 07-16-2023 Target cells LM Ql (Bld) Moderate [facility] Urea nitrogen [Mass/volume] in Serum or PlasmaOrdered By: Federico Davis on 07-16-2023 Urea nitrogen [Mass/Vol] 16 mg/dL Normal 7-25 [facility] Comment on above: Result Comment: PERF ORMED BY:[facility] [place], [place] [phone] MEDICAL DIRECTORAIRAM MAST M.D. Performed By: #### S CAN CBC, LYTES, BUN ####[facility] [place] [address] [facility] XR femur RT 2V*on 06-11-2023 XR femur RT 2V* Normal [facility] Progress Noteson 06-02-2023 Electromedical Service Engineer Authentication Interface Message Text EMERGENCY TRIAGE, TREAT AND TRANSPORT (ET3) DOCUMENTATION OF TELEHEALTH VISIT Date / Time: 06/02/2023929 Name: Ifeanyi Vickers : 1935 SSN: (Not on file) EMS Agency: [facility] [x] Verbal consent obtained [] Implied [...] Disposition Reported: Same ET3 Encounter Completed by: eHrminio Weston MD Normal [facility] [facility] XR HIP 2 OR 3 VW [...] anterolateral ST T wave abnormality, abnormal ECG [facility] Work Phone: XR hip RT min 2V(w/wo pelvis )*on 05-21-2023 XR hip RT min 2V(w/wo pelvis)* Normal [facility] Glucose Glucometer (BldC) [M ass/Vol]Ordered By: Fredi Medrano on 05-08-2023 Glucose [Mass/Vol] 98 mg/dL [facility] Comment on above: Random Glucose Refer ence Range is dependent on time and content of last meal. Glucose of more than 200 mg/dL in a nonstressed, ambulatory subject supports the diagnosis of Diabetes Mellitus. Glucose Poct Glucometerson 1 Commemt1 Glu2: Cleaned Meter Normal [facility] Comment on above: Result Comment: PERF ORMED BY:[place] [address] [place], [place] [phone] MEDICAL DIRECTORAIRAM MAST M.D. Performed By: #### G LULS ####Point of Care testing, Glucose [Mass/Vol] 98 mg/dL Normal [facility] Comment on above: Result Comment: [place] om Glucose Reference Range is dependent on time and content of last meal. Glucose of more than 200 mg/dL in a nonstressed, ambulatory subject supports the diagnosis of Diabetes Mellitus. Performed By: #### G LULS ####Point of Care testing, No Panel InformationOrdered By: Fredi Medrano on 05-08-2023 Bedside Glucose Comment Glu2: cleaned meter [facility] Glucose Poct Glucometerson 1 Glucose [Mass/Vol] 146 mg/dL Normal [facility] Comment on above: Result Comment: [place] om Glucose Reference Range is dependent on time and content of last meal. Glucose of more than 200 mg/dL in a nonstressed, ambulatory subject supports the diagnosis of Diabetes Mellitus.PERFORMED BY:[place] [address] [place], [place] [phone] MEDICAL DIRECTORAIRAM MAST M.D. Performed By: #### G LULS ####Point of Care testing, Commemt1 Glu2: Cleaned Meter Normal [facility] Comment on above: Result Comment: PERF ORMED BY:[place] [address] [place] [phone] MEDICAL DIRECTORAIRAM MAST M.D. Performed By: #### G LULS ####Point of Care testing, Glucose [Mass/Vol] 164 mg/dL Normal [facility] Comment on above: Result Comment: [place] om Glucose Reference Range is dependent on time and content of last meal. Glucose of more than 200 mg/dL in a nonstressed, ambulatory subject supports the diagnosis of Diabetes Mellitus. Performed By: #### G LULS ####Point of Care testing, Commemt1 Glu2: Cleaned Meter Normal [facility] Comment on above: Result Comment: PERF ORMED BY:[place] [address] [place], [place] [phone] MEDICAL DIRECTORAIRAM MAST M.D. Performed By: #### G LULS ####Point of Care testing, Glucose [Mass/Vol] 238 mg/dL Normal [facility] Comment on above: Result Comment: [place] om Glucose Reference Range is dependent on time and content of last meal. Glucose of more than 200 mg/dL in a nonstressed, ambulatory subject supports the diagnosis of Diabetes Mellitus. Performed By: #### G LULS ####Point of Care testing, Glucose [Mass/Vol] 112 mg/dL Normal [facility] Comment on above: Result Comment: [place] om Glucose Reference Range is dependent on time and content of last meal. Glucose of more than 200 mg/dL in a nonstressed, ambulatory subject supports the diagnosis of Diabetes Mellitus.PERFORMED BY:[place] [address] [place], [place] [phone] MEDICAL HUMBLE MAST M.D. Performed By: #### G LULS ####Point of Care testing, Glucose [Mass/Vol] 67 mg/dL Normal [facility] Comment on above: Result Comment: [place] om Glucose Reference Range is dependent on time and content of last meal. Glucose of more than 200 mg/dL in a nonstressed, ambulatory subject supports the diagnosis of Diabetes Mellitus.PERFORMED BY:[place] [address] [place], [place] [phone] MEDICAL DIRECTORAIRAM MAST M.D. Performed By: #### G LULS ####Point of Care testing, Glucose Poct Glucometerson 1 Glucose [Mass/Vol] 258 mg/dL Normal [facility] Comment on above: Result Comment: [place] om Glucose Reference Range is dependent on time and content of last meal. Glucose of more than 200 mg/dL in a nonstressed, ambulatory subject supports the diagnosis of Diabetes Mellitus.PERFORMED BY:[place] [address] [place], [place] [phone] MEDICAL DIRECTORAIRAM MAST M.D. Performed By: #### G LULS ####Point of Care testing, Commemt1 Glu2: Cleaned Meter Normal [facility] Comment on above: Result Comment: PERF ORMED BY:[address] [place], [place] [phone] MEDICAL DIRECTORAIRAM MAST M.D. Performed By: #### G LULS ####Point of Care testing, Glucose [Mass/Vol] 308 mg/dL Normal [facility] Comment on above: Result Comment: [place] om Glucose Reference Range is dependent on time and content of last meal. Glucose of more than 200 mg/dL in a nonstressed, ambulatory subject supports the diagnosis of Diabetes Mellitus. Performed By: #### G LULS ####Point of Care testing, Commemt1 Glu2: Cleaned Meter Normal [facility] Comment on above: Result Comment: PERF ORMED BY:[address] [place], [place] [phone] MEDICAL DIRECTORAIRAM MAST M.D. Performed By: #### G LULS ####Point of Care testing, Glucose [Mass/Vol] 222 mg/dL Normal [facility] Comment on above: Result Comment: [place] om Glucose Reference Range is dependent on time and content of last meal. Glucose of more than 200 mg/dL in a nonstressed, ambulatory subject supports the diagnosis of Diabetes Mellitus. Performed By: #### G LULS ####Point of Care testing, Glucose [Mass/Vol] 114 mg/dL Normal [facility] Comment on above: Result Comment: [place] om Glucose Reference Range is dependent on time and content of last meal. Glucose of more than 200 mg/dL in a nonstressed, ambulatory subject supports the diagnosis of Diabetes Mellitus.PERFORMED BY:[place] [address] [place], [place] [phone] MEDICAL DIRECTORAIRAM MAST M.D. Performed By: #### G LULS ####Point of Care testing, Glucose Poct Glucometerson 1 Glucose [Mass/Vol] 141 mg/dL Normal [facility] Comment on above: Result Comment: [place] om Glucose Reference Range is dependent on time and content of last meal. Glucose of more than 200 mg/dL in a nonstressed, ambulatory subject supports the diagnosis of Diabetes Mellitus.PERFORMED BY:[address] [place], [place] [phone] MEDICAL HUMBLE MAST M.D. Performed By: #### G LULS ####Point of Care testing, Glucose [Mass/Vol] 153 mg/dL Normal [facility] Comment on above: Result Comment: [place] om Glucose Reference Range is dependent on time and content of last meal. Glucose of more than 200 mg/dL in a nonstressed, ambulatory subject supports the diagnosis of Diabetes Mellitus.PERFORMED BY:[place] [address] [place], [place] [phone] MEDICAL HUMBLE MAST M.D. Performed By: #### G LULS ####Point of Care testing, Commemt1 Glu2: Cleaned Meter Normal [facility] Comment on above: Result Comment: PERF ORMED BY:[place] [address] [address] [place], [place] [phone] KRYSTAL MAST M.D. Performed By: #### G LULS ####Point of Care testing, Glucose [Mass/Vol] 224 mg/dL Normal [facility] Comment on above: Result Comment: [place] om Glucose Reference Range is dependent on time and content of last meal. Glucose of more than 200 mg/dL in a nonstressed, ambulatory subject supports the diagnosis of Diabetes Mellitus. Performed By: #### G LULS ####Point of Care testing, Glucose [Mass/Vol] 106 mg/dL Normal [facility] Comment on above: Result Comment: [place] Glucose Reference Range is dependent on time and content of last meal. Glucose of more than 200 mg/dL in a nonstressed, ambulatory subject supports the diagnosis of Diabetes Mellitus.PERFORMED BY:[address] [place], [place] [phone] MEDICAL DIRECTORAIRAM MAST M.D. Performed By: #### G LUMARYA ####Point of Care testing, Glucose [Mass/Vol] 124 mg/dL Normal [facility] Comment on above: Result Comment: [facility] Glucose Reference Range is dependent on time and content of last meal. Glucose of more than 200 mg/dL in a nonstressed, ambulatory subject supports the diagnosis of Diabetes Mellitus.PERFORMED BY:[address] [place], [place] [phone] MEDICAL DIRECTORAIRAM MAST M.D. Performed By: #### G LUMARYA ####Point of Care testing, Alanine aminotransferase [En zymatic activity/volume] in Serum or PlasmaOrdered By: Fredi Medrano on 05-04-2023 ALT [Catalytic activity/Vol] 14 U/L 7-52 [facility] Albumin [Mass/volume] in Ser um or Plasma by Bromocresol green (BCG) dye binding methoOrdered By: Fredi Medrano on 05-04-2023 Albumin BCG dye [Mass/Vol] 2.9 g/dL 3.5-5.7 [facility] Alkaline phosphatase [Enzyma tic activity/volume] in Serum or PlasmaOrdered By: Fredi Merdano on 05-04-2023 ALP [Catalytic activity/Vol] 87 U/L 34-104 [facility] Aspartate aminotransferase [ Enzymatic activity/volume] in Serum or PlasmaOrdered By: Fredi Medrano on 05-04-2023 AST [Catalytic activity/Vol] 20 U/L 13-39 [facility] Basophils Auto (Bld) [#/Vol] Ordered By: Fredi Medrano on 05-04-2023 Basophils (Bld) [#/Vol] 0.0 10*3/uL 0.0-0.2 [facility] Basophils/100 WBC Auto (Bld) Ordered By: Baptism [facility] on 05-04-2023 Basophils/100 WBC (Bld) 0.7 % . [facility] Bilirubin.total [Mass/volume ] in Serum or PlasmaOrdered By: [facility] on 05-04-2023 Bilirubin [Mass/Vol] 0.5 mg/dL 0.3-1.0 [facility] Calcium [Mass/volume] in Ser um or PlasmaOrdered By: [facility] on 05-04-2023 Calcium [Mass/Vol] 8.0 mg/dL 8.6-10.3 [facility] Carbon dioxide, total [Moles /volume] in Serum or PlasmaOrdered By: Fredi [facility] on 05-04-2023 CO2 [Moles/Vol] 28.0 mmol/L 21.0-31.0 [facility] Chloride [Moles/volume] in S jihan or PlasmaOrdered By: [facility] on 05-04-2023 Chloride [Moles/Vol] 102 mmol/L 98-107 [facility] Complete Blood Count Auto Di ffon 05-04-2023 Basophils (Bld) [#/Vol] 0.0 10*3/uL Normal 0.0-0.2 [facility] Comment on above: Result Comment: PERF ORMED BY:[facility] [place], [place] [phone] MEDICAL DIRECTORAIRAM MAST M.D. Performed By: #### P AB, CBC, CMP ####[facility] [id number] [place] [address] [facility] Basophils/100 WBC (Bld) 0.7 % Normal . [facility] Comment on above: Performed By: #### P AB, CBC, CMP ####[address] Eosinophils (Bld) [#/Vol] 0.1 10*3/uL Normal 0.0-0.45 [facility] Comment on above: Performed By: #### P AB, CBC, CMP ####[address] Eosinophils/100 WBC (Bld) 1.5 % Normal . [facility] Comment on above: Performed By: #### P AB, CBC, CMP ####[address] Erythrocyte distribution width (RBC) [Ratio] 16.8 % High 12.0-14.8 [facility] Comment on above: Performed By: #### P AB, CBC, CMP ####[address] Hematocrit (Bld) [Volume fraction] 29.3 % Low 38.8-50.0 [facility] Comment on above: Performed By: #### P AB, CBC, CMP ####[address] Hemoglobin (Bld) [Mass/Vol] 9.7 g/dL Low 13.0-17.0 [facility] Comment on above: Performed By: #### P AB, CBC, CMP ####[address] Lymphocytes (Bld) [#/Vol] 1.6 10*3/uL Normal 1.00-4.8 [facility] Comment on above: Performed By: #### P AB, CBC, CMP ####[address] Lymphocytes/100 WBC (Bld) 23.0 % Normal . [facility] Comment on above: Performed By: #### P AB, CBC, CMP ####[address] MCH (RBC) [Entitic mass] 27.9 pg Normal 27.5-35.2 [facility] Comment on above: Performed By: #### P AB, CBC, CMP ####[address] MCV (RBC) [Entitic vol] 84.6 fL Normal 83.5-101 [facility] [facility] Comment on above: Performed By: #### P AB, CBC, CMP ####[address] Mean Corpuscular HGB Conc 33.0 g/dL Normal 32.5-35.6 [facility] Comment on above: Performed By: #### P AB, CBC, CMP ####[address] Monocytes (Bld) [#/Vol] 0.7 10*3/uL Normal 0.0-0.8 [facility] Comment on above: Performed By: #### P AB, CBC, CMP ####[address] Monocytes/100 WBC (Bld) 9.9 % Normal . [facility] Comment on above: Performed By: #### P AB, CBC, CMP ####[address] Neutrophils (Bld) [#/Vol] 4.6 10*3/uL Normal 1.8-7.7 [facility] Comment on above: Performed By: #### P AB, CBC, CMP ####[address] Neutrophils/100 WBC (Bld) 64.9 % Normal . [facility] Comment on above: Performed By: #### P AB, CBC, CMP ####[address] NRBC% 0.2 /100{WBC} Normal 0-0.5 The [facility] Comment on above: Performed By: #### P AB, CBC, CMP ####[address] Platelet mean volume (Bld) [Entitic vol] 8.9 fL Normal 6.6-10.1 The [facility] Comment on above: Performed By: #### P AB, CBC, CMP ####[address] Platelets (Bld) [#/Vol] 218 10*3/uL Normal 150-450 [facility] Comment on above: Performed By: #### P AB, CBC, CMP ####[address] RBC (Bld) [#/Vol] 3.46 10*6/uL Low 3.90-5.60 [facility] Comment on above: Performed By: #### P AB, CBC, CMP ####[address] WBC (Bld) [#/Vol] 7.2 10*3/uL Normal 4.1-10.5 [facility] Comment on above: Performed By: #### P AB, CBC, CMP ####[address] Comprehensive Metabolic Pane jairo 05-04-2023 Albumin [Mass/Vol] 2.9 g/dL Low 3.5-5.7 [facility] Comment on above: Performed By: #### P AB, CBC, CMP ####[address] Albumin/Globulin [Mass ratio] 1.2 {ratio} Normal [facility] Comment on above: Performed By: #### P AB, CBC, CMP ####[place] [id number] [facility] ALP [Catalytic activity/Vol] 87 U/L Normal 34-104 [facility] Comment on above: Performed By: #### P AB, CBC, CMP ####[place] [id number] [facility] ALT [Catalytic activity/Vol] 14 U/L Normal 7-52 [facility] Comment on above: Performed By: #### P AB, CBC, CMP ####[place] [id number] [facility] Anion gap [Moles/Vol] 8.6 mmol/L Normal 6.0-15.0 [facility] Comment on above: Performed By: #### P AB, CBC, CMP ####[place] [id number] [facility] AST [Catalytic activity/Vol] 20 U/L Normal 13-39 [facility] Comment on above: Performed By: #### P AB, CBC, CMP ####[place] [id number] [facility] Bilirubin [Mass/Vol] 0.5 mg/dL Normal 0.3-1.0 [facility] Comment on above: Performed By: #### P AB, CBC, CMP ####[place] [id number] [facility] Calcium [Mass/Vol] 8.0 mg/dL Low 8.6-10.3 The [facility] Comment on above: Performed By: #### P AB, CBC, CMP ####[place] [id number] [facility] Chloride [Moles/Vol] 102 mmol/L Normal 98-107 [facility] Comment on above: Performed By: #### P AB, CBC, CMP ####[place] [id number] [facility] CO2 [Moles/Vol] 28.0 mmol/L Normal 21.0-31.0 The [facility] Comment on above: Performed By: #### P AB, CBC, CMP ####[place] [id number] [facility] Creatinine [Mass/Vol] 0.61 mg/dL Low 0.70-1.30 [facility] Comment on above: Performed By: #### P AB, CBC, CMP ####[place] [id number] [facility] Creatinine Clr Calc Pharmacy 62.25 Normal [facility] Comment on above: Performed By: #### P AB, CBC, CMP ####[place] [id number] [place] GFR/1.73 sq M.predicted MDRD (S/P/Bld) [Vol rate/Area] mL/min/{1.73_m2} Normal [facility] Comment on above: Performed By: #### P AB, CBC, CMP ####[address] Globulin (S) [Mass/Vol] 2.5 g/dL Normal [facility] Comment on above: Performed By: #### P AB, CBC, CMP ####[address] Glucose [Mass/Vol] 120 mg/dL High 70-100 The [facility] Comment on above: Result Comment: [facility] Glucose Reference Range is dependent on time and content of last meal. Glucose of more than 200 mg/dL in a nonstressed, ambulatory subject supports the diagnosis of Diabetes Mellitus. ADA recommended reference range Performed By: #### P AB, CBC, CMP ####[address] Potassium [Moles/Vol] 4.6 mmol/L Normal 3.5-5.1 [facility] Comment on above: Performed By: #### P AB, CBC, CMP ####[address] Protein [Mass/Vol] 5.4 g/dL Low 6.4-8.9 [facility] Comment on above: Performed By: #### P AB, CBC, CMP ####[address] Sodium [Moles/Vol] 134 mmol/L Low 136-145 [facility] Comment on above: Performed By: #### P AB, CBC, CMP ####[address] Urea nitrogen [Mass/Vol] 22 mg/dL Normal 7-25 [facility] Comment on above: Performed By: #### P AB, CBC, CMP ####[address] Creatinine [Mass/volume] in Serum or PlasmaOrdered By: Fredi Medrano on 05-04-2023 Creatinine [Mass/Vol] 0.61 mg/dL 0.70-1.30 [facility] Eosinophils Auto (Bld) [#/Vo l]Ordered By: Fredi Medrano on 05-04-2023 Eosinophils (Bld) [#/Vol] 0.1 10*3/uL 0.0-0.45 [facility] Eosinophils/100 WBC Auto (Bl d)Ordered By: Fredi Medrano on 05-04-2023 Eosinophils/100 WBC (Bld) 1.5 % . [facility] Erythrocyte distribution wid th Auto (RBC) [Ratio]Ordered By: Fredi Medrano on 05-04-2023 Erythrocyte distribution width (RBC) [Ratio] 16.8 % 12.0-14.8 [facility] Globulin Calc (S) [Mass/Vol] Ordered By: Fredi Medrano on 05-04-2023 Globulin (S) [Mass/Vol] 2.5 g/dL [facility] Glucose Poct Glucometerson 1 Glucose [Mass/Vol] 125 mg/dL Normal [facility] Comment on above: Result Comment: [facility] Glucose Reference Range is dependent on time and content of last meal. Glucose of more than 200 mg/dL in a nonstressed, ambulatory subject supports the diagnosis of Diabetes Mellitus.PERFORMED BY:[place] [address] [place] [place], [place] [phone] MEDICAL HUMBLE MAST M.D. Performed By: #### G LULS ####Point of Care testing, Glucose [Mass/Vol] 210 mg/dL Normal [facility] Comment on above: Result Comment: [facility] Glucose Reference Range is dependent on time and content of last meal. Glucose of more than 200 mg/dL in a nonstressed, ambulatory subject supports the diagnosis of Diabetes Mellitus.PERFORMED BY:[place] [address] [place], [place] [phone] MEDICAL HUMBLE MAST M.D. Performed By: #### G LULS ####Point of Care testing, Glucose [Mass/Vol] 213 mg/dL Normal [facility] Comment on above: Result Comment: [place] [facility] Glucose Reference Range is dependent on time and content of last meal. Glucose of more than 200 mg/dL in a nonstressed, ambulatory subject supports the diagnosis of Diabetes Mellitus.PERFORMED BY:[place] [id number] [place], [place] [phone] MEDICAL DIRECTORAIRAM MAST M.D. Performed By: #### G LULS ####Point of Care testing, Commemt1 Glu2: Cleaned Meter Normal The [facility] Comment on above: Result Comment: PERF ORMED BY:[place] [address] [address] [place], [place] [phone] MEDICAL DIRECTORAIRAM MAST M.D. Performed By: #### G LULS ####Point of Care testing, Glucose [Mass/Vol] 197 mg/dL Normal [facility] Comment on above: Result Comment: [place] [facility] Glucose Reference Range is dependent on time and content of last meal. Glucose of more than 200 mg/dL in a nonstressed, ambulatory subject supports the diagnosis of Diabetes Mellitus. Performed By: #### G LULS ####Point of Care testing, Glucose [Mass/volume] in Ser um or PlasmaOrdered By: Fredi Medrano on 05-04-2023 Glucose [Mass/Vol] 120 mg/dL 70-100 [facility] Comment on above: ADA recommended refe rence rangeRandom Glucose Reference Range is dependent on time and content of last meal. Glucose of more than 200 mg/dL in a nonstressed, ambulatory subject supports the diagnosis of Diabetes Mellitus. Hematocrit Auto (Bld) [Volum e fraction]Ordered By: Fredi Medrano on 05-04-2023 Hematocrit (Bld) [Volume fraction] 29.3 % 38.8-50.0 [facility] Hemoglobin [Mass/volume] in BloodOrdered By: Fredi Medrano on 05-04-2023 Hemoglobin (Bld) [Mass/Vol] 9.7 g/dL 13.0-17.0 [facility] Leukocytes [#/volume] correc robert for nucleated erythrocytes in Blood by Automated counOrdered By: Fredi Medrano on 05-04-2023 WBC corrected for nucl RBC Auto (Bld) [#/Vol] 7.2 10*3/uL 4.1-10.5 [facility] Lymphocytes Auto (Bld) [#/Vo l]Ordered By: Fredi Medrano on 05-04-2023 Lymphocytes (Bld) [#/Vol] 1.6 10*3/uL 1.00-4.8 [facility] Lymphocytes/100 WBC Auto (Bl d)Ordered By: Fredi Medrano on 05-04-2023 Lymphocytes/100 WBC (Bld) 23.0 % . [facility] MCH Auto (RBC) [Entitic mass ]Ordered By: Fredi Medrano on 05-04-2023 MCH (RBC) [Entitic mass] 27.9 pg 27.5-35.2 [facility] MCHC Auto (RBC) [Mass/Vol]Or dered By: Fredi Medrano on 05-04-2023 MCHC (RBC) [Mass/Vol] 33.0 g/dL 32.5-35.6 [facility] MCV Auto (RBC) [Entitic vol] Ordered By: Fredi Medrano on 05-04-2023 MCV (RBC) [Entitic vol] 84.6 fL 83.5-101 [facility] Monocytes Auto (Bld) [#/Vol] Ordered By: Fredi Medrano on 05-04-2023 Monocytes (Bld) [#/Vol] 0.7 10*3/uL 0.0-0.8 [facility] Monocytes/100 WBC Auto (Bld) Ordered By: Fredi Medrano on 05-04-2023 Monocytes/100 WBC (Bld) 9.9 % . [facility] Neutrophils Auto (Bld) [#/Vo l]Ordered By: Fredi Medrano on 05-04-2023 Neutrophils (Bld) [#/Vol] 4.6 10*3/uL 1.8-7.7 [facility] Neutrophils/100 WBC Auto (Bl d)Ordered By: Fredi Medrano on 05-04-2023 Neutrophils/100 WBC (Bld) 64.9 % . [facility] No Panel InformationOrdered By: Fredi Medrano on 05-04-2023 Estimated GFR (CKD-EPI) > 60.0 mL/Min [facility] Creatinine Clearance (Chem 62.25 [facility] Nucleated erythrocytes [Pres ence] in Blood by Automated countOrdered By: Fredi Medrano on 05-04-2023 Nucleated RBC Auto Ql (Bld) 0.2 /100{WBC} 0-0.5 [facility] Platelet mean volume Auto (B ld) [Entitic vol]Ordered By: Fredi Medrano on 05-04-2023 Platelet mean volume (Bld) [Entitic vol] 8.9 fL 6.6-10.1 [facility] Platelets Auto (Bld) [#/Vol] Ordered By: Fredi Medrano on 05-04-2023 Platelets (Bld) [#/Vol] 218 10*3/uL 150-450 [facility] Potassium [Moles/volume] in Serum or PlasmaOrdered By: Fredi Medrano on 05-04-2023 Potassium [Moles/Vol] 4.6 mmol/L 3.5-5.1 [facility] Prealbuminon 05-04-2023 Prealbumin [Mass/Vol] 10.2 mg/dL Low 17.0-34.0 [facility] Comment on above: Result Comment: PERF ORMED BY:[facility] [place], [place] [phone] MEDICAL DIRECTORAIRAM MAST M.D. Performed By: #### P AB, CBC, CMP ####[facility] [place] [id number] [facility] Prealbumin [Mass/volume] in Serum or PlasmaOrdered By: Fredi Medrano on 05-04-2023 Prealbumin [Mass/Vol] 10.2 mg/dL 17.0-34.0 [facility] Protein [Mass/volume] in Ser um or PlasmaOrdered By: Frdei Medrano on 05-04-2023 Protein [Mass/Vol] 5.4 g/dL 6.4-8.9 [facility] RBC Auto (Bld) [#/Vol]Ordere d By: Fredi Medrano on 05-04-2023 RBC (Bld) [#/Vol] 3.46 10*6/uL 3.90-5.60 [facility] Serum or plasma albumin/glob ulin mass ratioOrdered By: Fredi Medrano on 05-04-2023 Albumin/Globulin [Mass ratio] 1.2 {ratio} [facility] Serum or plasma anion gap de terminationOrdered By: Fredi Medrano on 05-04-2023 Anion gap [Moles/Vol] 8.6 mmol/L 6.0-15.0 [facility] Sodium [Moles/volume] in Ser um or PlasmaOrdered By: Fredi Medrano on 05-04-2023 Sodium [Moles/Vol] 134 mmol/L 136-145 [facility] Urea nitrogen [Mass/volume] in Serum or PlasmaOrdered By: Fredi Medrano on 05-04-2023 Urea nitrogen [Mass/Vol] 22 mg/dL 7-25 [facility] WBC Auto (Bld) [#/Vol]Ordere d By: Fredi Medrano on 05-04-2023 WBC (Bld) [#/Vol] 7.2 10*3/uL 4.1-10.5 [facility] Cholesterol [Mass/volume] in Serum or PlasmaOrdered By: Anat Perez on 05-03-2023 Cholesterol [Mass/Vol] 98 mg/dL 140-200 [facility] Comment on above: Chol less than 200 m g/dl low riskChol 201-239 mg/dl borderline riskChol 240 mg/dl and greater high risk Cholesterol in LDL Calc [Mas s/Vol]Ordered By: Anat Perez on 05-03-2023 Cholesterol in LDL [Mass/Vol] 46 mg/dL 0-100 [facility] Comment on above: LDL ATP III CLASSIFI CATIONLDL less than 100 mg/dL OptimalLDL 100-129 mg/dL Near or above optimalLDL 130-159 mg/dL Borderline highLDL 160-189 mg/dL HighLDL greater than 189 mg/dL Very high Cholesterol in VLDL Calc [Ma ss/Vol]Ordered By: Anat Perez on 05-03-2023 Cholesterol in VLDL [Mass/Vol] 12 mg/dL [facility] Glucose Glucometer (BldC) [M ass/Vol]Ordered By: Humberto Diaz on 05-03-2023 Glucose [Mass/Vol] 388 mg/dL [facility] Comment on above: Random Glucose Refer ence Range is dependent on time and content of last meal. Glucose of more than 200 mg/dL in a nonstressed, ambulatory subject supports the diagnosis of Diabetes Mellitus. Glucose Poct Glucometerson 1 Glucose [Mass/Vol] 385 mg/dL Normal [facility] Comment on above: Result Comment: [place] Glucose Reference Range is dependent on time and content of last meal. Glucose of more than 200 mg/dL in a nonstressed, ambulatory subject supports the diagnosis of Diabetes Mellitus.PERFORMED BY:[address] [place], [place] [phone] MEDICAL DIRECTORAIRAM MAST M.D. Performed By: #### G LULS ####Point of Care testing, Glucose [Mass/Vol] 379 mg/dL Normal [facility] Comment on above: Result Comment: [place] Glucose Reference Range is dependent on time and content of last meal. Glucose of more than 200 mg/dL in a nonstressed, ambulatory subject supports the diagnosis of Diabetes Mellitus.PERFORMED BY:[place] [address] [place], [place] [phone] MEDICAL DIRECTORAIRAM MAST M.D. Performed By: #### G LULS ####Point of Care testing, Glucose [Mass/Vol] 388 mg/dL Normal [facility] Comment on above: Result Comment: [place] Glucose Reference Range is dependent on time and content of last meal. Glucose of more than 200 mg/dL in a nonstressed, ambulatory subject supports the diagnosis of Diabetes Mellitus.PERFORMED BY:[address], [place] [phone] MEDICAL DIRECTORAIRAM MAST M.D. Performed By: #### G RIOS ####Point of Care testing, Glucose [Mass/Vol] 310 mg/dL Normal [facility] Comment on above: Result Comment: [facility] Glucose Reference Range is dependent on time and content of last meal. Glucose of more than 200 mg/dL in a nonstressed, ambulatory subject supports the diagnosis of Diabetes Mellitus.PERFORMED BY:[place] [address] [place], [place] [phone] MEDICAL DIRECTORAIRAM MAST M.D. Performed By: #### G RIOS ####Point of Care testing, Lipid Panelon 05-03-2023 Cholesterol [Mass/Vol] 98 mg/dL Low 140-200 [facility] Comment on above: Result Comment: Chol less than 200 mg/dl low risk Chol 201-239 mg/dl borderline risk Chol 240 mg/dl and greater high risk Performed By: #### L IPID ####[address] [address] [facility] Cholesterol in HDL [Mass/Vol] 39 mg/dL Normal 23-92 [facility] Comment on above: Result Comment: HDL CHOL ATP-III CLASSIFICATION Cardiovascular Risk HDL > or equal to 60 mg/dL LOW HDL < 40 mg/dL HIGH Performed By: #### L IPID ####[address] [address] [facility] Cholesterol.total/Cho lesterol in HDL [Mass ratio] 2.5 {ratio} Normal <5.0 [facility] Comment on above: Result Comment: PERF ORMED BY:[place] [address] [place] [phone] MEDICAL DIRECTORAIRAM MAST M.D. Performed By: #### L IPID ####[address] [address] [facility] LDL Cholesterol,Calculate d 46 mg/dL Normal 0-100 [facility] Comment on above: Result Comment: LDL ATP III CLASSIFICATION LDL less than 100 mg/dL Optimal LDL 100-129 mg/dL Near or above optimal LDL 130-159 mg/dL Borderline high LDL 160-189 mg/dL High LDL greater than 189 mg/dL Very high Performed By: #### L IPID ####[facility] Triglyceride w/Reflex 64 mg/dL Normal 0-149 [facility] Comment on above: Result Comment: TRIG ATP III CLASSIFICATION TRIG less than 150 mg/dL Normal TRIG 150-199 mg/dL Borderline high TRIG 200-500 mg/dL High TRIG greater than 500 mg/dL Very high Standard traceable to the Center for Disease Conrtrol and Prevention (CDC) test method. Performed By: #### L IPID ####[facility] VLDL CHOLESTEROL 12 mg/dL Normal [facility] Comment on above: Performed By: #### L IPID ####[facility] Serum or plasma high density lipoprotein (HDL) cholesterol measurementOrdered By: Anat Perez on 05-03-2023 Cholesterol in HDL [Mass/Vol] 39 mg/dL [facility] Comment on above: HDL CHOL ATP-III CLA SSIFICATION Cardiovascular RiskHDL > or equal to 60 mg/dL LOWHDL < 40 mg/dL HIGH Serum or plasma total choles terol/high density lipoprotein (HDL) cholesterol mass ratOrdered By: Anat Perez on 05-03-2023 Cholesterol.total/Cho lesterol in HDL [Mass ratio] 2.5 {ratio} <5.0 [facility] Triglyceride [Mass/volume] i n Serum or PlasmaOrdered By: Anat Perez on 05-03-2023 Triglyceride [Mass/Vol] 64 mg/dL 0-149 [facility] Comment on above: TRIG ATP III CLASSIF ICATIONTRIG less than 150 mg/dL NormalTRIG 150-199 mg/dL Borderline highTRIG 200-500 mg/dL High TRIG greater than 500 mg/dL Very highStandard traceable to the Center for Disease Conrtrol and Prevention (CDC) test method. Basic Metabolic Panelon 04-12 Anion gap [Moles/Vol] 8.1 mmol/L Normal 6.0-15.0 [facility] Comment on above: Performed By: #### C DENISE BMP, LIPID ####[address] Calcium [Mass/Vol] 8.0 mg/dL Low 8.6-10.3 [facility] Comment on above: Performed By: #### C DENISE BMP, LIPID ####[address] Chloride [Moles/Vol] 97 mmol/L Low 98-107 [facility] Comment on above: Performed By: #### C SHARAN WALKER, LIPID ####[address] CO2 [Moles/Vol] 30.1 mmol/L Normal 21.0-31.0 [facility] Comment on above: Performed By: #### C SHRAAN WALKER, LIPID ####[address] Creatinine [Mass/Vol] 0.86 mg/dL Normal 0.70-1.30 [facility] Comment on above: Performed By: #### C SHARAN WALKER, LIPID ####[address] Creatinine Clr Calc Pharmacy 59.22 Normal [facility] Comment on above: Performed By: #### C SHARAN WALKER, LIPID ####[address] GFR/1.73 sq M.predicted MDRD (S/P/Bld) [Vol rate/Area] mL/min/{1.73_m2} Normal [facility] Comment on above: Performed By: #### C DENISE BMP, LIPID ####[address] Glucose [Mass/Vol] 87 mg/dL Normal 70-100 [facility] Comment on above: Result Comment: [place] Glucose Reference Range is dependent on time and content of last meal. Glucose of more than 200 mg/dL in a nonstressed, ambulatory subject supports the diagnosis of Diabetes Mellitus. ADA recommended reference range Performed By: #### C BC, BMP, LIPID ####[facility] Potassium [Moles/Vol] 4.2 mmol/L Normal 3.5-5.1 [facility] Comment on above: Performed By: #### C BC, BMP, LIPID ####[facility] Sodium [Moles/Vol] 131 mmol/L Low 136-145 [facility] Comment on above: Performed By: #### C BC, BMP, LIPID ####[facility] Urea nitrogen [Mass/Vol] 21 mg/dL Normal 7-25 [facility] Comment on above: Performed By: #### C BC, BMP, LIPID ####[facility] Basophils Auto (Bld) [#/Vol] Ordered By: Sushant Cordon on 05-02-2023 Basophils (Bld) [#/Vol] 0.0 10*3/uL 0.0-0.2 [facility] Basophils/100 WBC Auto (Bld) Ordered By: Sushant Cordon on 05-02-2023 Basophils/100 WBC (Bld) 0.1 % . [facility] Calcium [Mass/volume] in Ser um or PlasmaOrdered By: Sushant Cordon on 05-02-2023 Calcium [Mass/Vol] 8.0 mg/dL 8.6-10.3 [facility] Carbon dioxide, total [Moles /volume] in Serum or PlasmaOrdered By: Sushant Cordon on 05-02-2023 CO2 [Moles/Vol] 30.1 mmol/L 21.0-31.0 [facility] Chloride [Moles/volume] in S jihan or PlasmaOrdered By: Sushant Cordon on 10-22-2023 Chloride [Moles/Vol] 97 mmol/L 98-107 [facility] Complete Blood Count Auto Di ffon 05-02-2023 Basophils (Bld) [#/Vol] 0.0 10*3/uL Normal 0.0-0.2 [facility] Comment on above: Result Comment: PERF ORMED BY:[address] [place], [place] [phone] MEDICAL DIRECTORAIRAM MAST M.D. Performed By: #### C BC, BMP, LIPID ####[place] [id number] [facility] Basophils/100 WBC (Bld) 0.1 % Normal . [facility] Comment on above: Performed By: #### C BC, BMP, LIPID ####[address] [address] [facility] Eosinophils (Bld) [#/Vol] 0.1 10*3/uL Normal 0.0-0.45 [facility] Comment on above: Performed By: #### C BC, BMP, LIPID ####[place] [id number] [facility] Eosinophils/100 WBC (Bld) 0.8 % Normal . [facility] Comment on above: Performed By: #### C BC, BMP, LIPID ####[place] [id number] [facility] Erythrocyte distribution width (RBC) [Ratio] 17.0 % High 12.0-14.8 [facility] Comment on above: Performed By: #### C BC, BMP, LIPID ####[place] [id number] [facility] Hematocrit (Bld) [Volume fraction] 27.8 % Low 38.8-50.0 [facility] Comment on above: Performed By: #### C BC, BMP, LIPID ####[place] [id number] [facility] Hemoglobin (Bld) [Mass/Vol] 9.3 g/dL Low 13.0-17.0 [facility] Comment on above: Performed By: #### C BC, BMP, LIPID ####[address] Lymphocytes (Bld) [#/Vol] 1.2 10*3/uL Normal 1.00-4.8 [facility] Comment on above: Performed By: #### C BC, BMP, LIPID ####[address] Lymphocytes/100 WBC (Bld) 13.7 % Normal . [facility] Comment on above: Performed By: #### C BC, BMP, LIPID ####[address] MCH (RBC) [Entitic mass] 28.3 pg Normal 27.5-35.2 [facility] Comment on above: Performed By: #### C BC, BMP, LIPID ####[address] MCV (RBC) [Entitic vol] 84.2 fL Normal 83.5-101 [facility] Comment on above: Performed By: #### C BC, BMP, LIPID ####[address] Mean Corpuscular HGB Conc 33.6 g/dL Normal 32.5-35.6 [facility] Comment on above: Performed By: #### C BC, BMP, LIPID ####[address] Monocytes (Bld) [#/Vol] 1.2 10*3/uL High 0.0-0.8 [facility] Comment on above: Performed By: #### C BC, BMP, LIPID ####[address] Monocytes/100 WBC (Bld) 13.5 % Normal . [facility] Comment on above: Performed By: #### C BC, BMP, LIPID ####[address] Neutrophils (Bld) [#/Vol] 6.2 10*3/uL Normal 1.8-7.7 [facility] Comment on above: Performed By: #### C BC, BMP, LIPID ####[address] Neutrophils/100 WBC (Bld) 71.9 % Normal . [facility] Comment on above: Performed By: #### C BC, BMP, LIPID ####[address] NRBC% 0.0 /100{WBC} Normal 0-0.5 The [facility] Comment on above: Performed By: #### C BC, BMP, LIPID ####[address] Platelet mean volume (Bld) [Entitic vol] 9.3 fL Normal 6.6-10.1 The [facility] Comment on above: Performed By: #### C BC, BMP, LIPID ####[address] Platelets (Bld) [#/Vol] 168 10*3/uL Normal 150-450 [facility] Comment on above: Performed By: #### C BC, BMP, LIPID ####[address] RBC (Bld) [#/Vol] 3.29 10*6/uL Low 3.90-5.60 [facility] Comment on above: Performed By: #### C BC, BMP, LIPID ####[address] WBC (Bld) [#/Vol] 8.6 10*3/uL Normal 4.1-10.5 The [facility] Comment on above: Performed By: #### C BC, BMP, LIPID ####[address] Creatinine [Mass/volume] in Serum or PlasmaOrdered By: Sushant Cordon on 05-02-2023 Creatinine [Mass/Vol] 0.86 mg/dL 0.70-1.30 [facility] Eosinophils Auto (Bld) [#/Vo l]Ordered By: Sushant oCrdon on 05-02-2023 Eosinophils (Bld) [#/Vol] 0.1 10*3/uL 0.0-0.45 [facility] Eosinophils/100 WBC Auto (Bl d)Ordered By: Sushant Cordon on 05-02-2023 Eosinophils/100 WBC (Bld) 0.8 % . [facility] Erythrocyte distribution wid th Auto (RBC) [Ratio]Ordered By: Sushant Cordon on 05-02-2023 Erythrocyte distribution width (RBC) [Ratio] 17.0 % 12.0-14.8 [facility] Glucose Poct Glucometerson 1 Glucose [Mass/Vol] 323 mg/dL Normal The [facility] Comment on above: Result Comment: [facility] Glucose Reference Range is dependent on time and content of last meal. Glucose of more than 200 mg/dL in a nonstressed, ambulatory subject supports the diagnosis of Diabetes Mellitus.PERFORMED BY:[place] [address] [address] [place], [place] [phone] MEDICAL DIRECTORAIRAM MAST M.D. Performed By: #### G LULS ####Point of Care testing, Commemt1 Normal [facility] Comment on above: Result Comment: Glu2 : WILL NOTIFY /ROCÍOERFORMED BY:[place] [address] [address] [place], [place] [phone] MEDICAL DIRECTORAIRAM MAST M.D. Performed By: #### G LULS ####Point of Care testing, Glucose [Mass/Vol] 427 mg/dL Off scale high Th e [facility] Comment on above: Result Comment: [place] [facility] Glucose Reference Range is dependent on time and content of last meal. Glucose of more than 200 mg/dL in a nonstressed, ambulatory subject supports the diagnosis of Diabetes Mellitus. Performed By: #### G LULS ####Point of Care testing, Glucose [Mass/Vol] 376 mg/dL Normal [facility] Comment on above: Result Comment: [place] [facility] Glucose Reference Range is dependent on time and content of last meal. Glucose of more than 200 mg/dL in a nonstressed, ambulatory subject supports the diagnosis of Diabetes Mellitus.PERFORMED BY:[place] [address] [address] [place], [place] [phone] MEDICAL DIRECTORAIRAM MAST M.D. Performed By: #### G LULS ####Point of Care testing, Glucose [Mass/Vol] 73 mg/dL Normal [facility] Comment on above: Result Comment: [place] Glucose Reference Range is dependent on time and content of last meal. Glucose of more than 200 mg/dL in a nonstressed, ambulatory subject supports the diagnosis of Diabetes Mellitus.PERFORMED BY:[place] [address] [address] [place], [place] [phone] MEDICAL DIRECTORAIRAM MAST M.D. Performed By: #### G LULS ####Point of Care testing, Glucose [Mass/Vol] 92 mg/dL Normal [facility] Comment on above: Result Comment: [facility] Glucose Reference Range is dependent on time and content of last meal. Glucose of more than 200 mg/dL in a nonstressed, ambulatory subject supports the diagnosis of Diabetes Mellitus.PERFORMED BY:[place] [address] [address] [place], [place] [phone] MEDICAL DIRECTORAIRAM MAST M.D. Performed By: #### G LULS ####Point of Care testing, Glucose [Mass/volume] in Ser um or PlasmaOrdered By: Sushant Cordon on 05-02-2023 Glucose [Mass/Vol] 87 mg/dL 70-100 [facility] Comment on above: ADA recommended refe rence rangeRandom Glucose Reference Range is dependent on time and content of last meal. Glucose of more than 200 mg/dL in a nonstressed, ambulatory subject supports the diagnosis of Diabetes Mellitus. Hematocrit Auto (Bld) [Volum e fraction]Ordered By: Sushant Cordon on 05-02-2023 Hematocrit (Bld) [Volume fraction] 27.8 % 38.8-50.0 [facility] Hemoglobin [Mass/volume] in BloodOrdered By: Sushant Cordon on 05-02-2023 Hemoglobin (Bld) [Mass/Vol] 9.3 g/dL 13.0-17.0 [facility] Leukocytes [#/volume] correc robert for nucleated erythrocytes in Blood by Automated counOrdered By: Sushant Cordon on 05-02-2023 WBC corrected for nucl RBC Auto (Bld) [#/Vol] 8.6 10*3/uL 4.1-10.5 [facility] Lipid Panelon 05-02-2023 Cholesterol [Mass/Vol] 97 mg/dL Low 140-200 [facility] Comment on above: Result Comment: Chol less than 200 mg/dl low risk Chol 201-239 mg/dl borderline risk Chol 240 mg/dl and greater high risk Performed By: #### C BC, BMP, LIPID ####[place] [address] [place] [id number] [facility] Cholesterol in HDL [Mass/Vol] 43 mg/dL Normal 23-92 [facility] Comment on above: Result Comment: HDL CHOL ATP-III CLASSIFICATION Cardiovascular Risk HDL > or equal to 60 mg/dL LOW HDL < 40 mg/dL HIGH Performed By: #### C BC, BMP, LIPID ####[place] [address] [place] [address] [facility] Cholesterol.total/Cho lesterol in HDL [Mass ratio] 2.3 {ratio} Normal <5.0 [facility] Comment on above: Result Comment: PERF ORMED BY:[address] [place], [place] [phone] MEDICAL DIRECTORAIRAM MAST M.D. Performed By: #### C BC, BMP, LIPID ####[place] [address] [place] [address] [facility] LDL Cholesterol,Calculate d 43 mg/dL Normal 0-100 [facility] Comment on above: Result Comment: LDL ATP III CLASSIFICATION LDL less than 100 mg/dL Optimal LDL 100-129 mg/dL Near or above optimal LDL 130-159 mg/dL Borderline high LDL 160-189 mg/dL High LDL greater than 189 mg/dL Very high Performed By: #### C BC, BMP, LIPID ####[facility] [place] [id number] [facility] Triglyceride w/Reflex 53 mg/dL Normal 0-149 [facility] Comment on above: Result Comment: TRIG ATP III CLASSIFICATION TRIG less than 150 mg/dL Normal TRIG 150-199 mg/dL Borderline high TRIG 200-500 mg/dL High TRIG greater than 500 mg/dL Very high Standard traceable to the Center for Disease Conrtrol and Prevention (CDC) test method. Performed By: #### C BC, BMP, LIPID ####[facility] [id number] VLDL CHOLESTEROL 10 mg/dL Normal The [facility] Comment on above: Performed By: #### C BC, BMP, LIPID ####[facility] Lymphocytes Auto (Bld) [#/Vo l]Ordered By: Sushant Cordon on 05-02-2023 Lymphocytes (Bld) [#/Vol] 1.2 10*3/uL 1.00-4.8 [facility] Lymphocytes/100 WBC Auto (Bl d)Ordered By: Sushant Cordon on 05-02-2023 Lymphocytes/100 WBC (Bld) 13.7 % . [facility] MCH Auto (RBC) [Entitic mass ]Ordered By: Sushant Cordon on 05-02-2023 MCH (RBC) [Entitic mass] 28.3 pg 27.5-35.2 [facility] MCHC Auto (RBC) [Mass/Vol]Or dered By: Sushant Cordon on 05-02-2023 MCHC (RBC) [Mass/Vol] 33.6 g/dL 32.5-35.6 [facility] MCV Auto (RBC) [Entitic vol] Ordered By: Sushant Cordon on 05-02-2023 MCV (RBC) [Entitic vol] 84.2 fL 83.5-101 [facility] Monocytes Auto (Bld) [#/Vol] Ordered By: Sushant Cordon on 05-02-2023 Monocytes (Bld) [#/Vol] 1.2 10*3/uL 0.0-0.8 [facility] Monocytes/100 WBC Auto (Bld) Ordered By: Sushant Cordon on 05-02-2023 Monocytes/100 WBC (Bld) 13.5 % . [facility] Neutrophils Auto (Bld) [#/Vo l]Ordered By: Sushant Cordon on 05-02-2023 Neutrophils (Bld) [#/Vol] 6.2 10*3/uL 1.8-7.7 [facility] Neutrophils/100 WBC Auto (Bl d)Ordered By: Sushant Cordon on 05-02-2023 Neutrophils/100 WBC (Bld) 71.9 % . [facility] No Panel InformationOrdered By: Sushant Cordon on 05-02-2023 Bedside Glucose Comment See comment [facility] Comment on above: Glu2: WILL NOTIFY DR /RN Estimated GFR (CKD-EPI) > 60.0 mL/Min [facility] Creatinine Clearance (Chem 59.22 [facility] Nucleated erythrocytes [Pres ence] in Blood by Automated countOrdered By: Sushant Cordon on 05-02-2023 Nucleated RBC Auto Ql (Bld) 0.0 /100{WBC} 0-0.5 [facility] Platelet mean volume Auto (B ld) [Entitic vol]Ordered By: Sushant Cordon on 05-02-2023 Platelet mean volume (Bld) [Entitic vol] 9.3 fL 6.6-10.1 [facility] Platelets Auto (Bld) [#/Vol] Ordered By: Sushant Cordon on 05-02-2023 Platelets (Bld) [#/Vol] 168 10*3/uL 150-450 [facility] Potassium [Moles/volume] in Serum or PlasmaOrdered By: Sushant Cordon on 05-02-2023 Potassium [Moles/Vol] 4.2 mmol/L 3.5-5.1 [facility] RBC Auto (Bld) [#/Vol]Ordere d By: Sushant oCrdon on 05-02-2023 RBC (Bld) [#/Vol] 3.29 10*6/uL 3.90-5.60 [facility] Serum or plasma anion gap de terminationOrdered By: Sushant Cordon on 05-02-2023 Anion gap [Moles/Vol] 8.1 mmol/L 6.0-15.0 [facility] Sodium [Moles/volume] in Ser um or PlasmaOrdered By: Sushant Cordon on 05-02-2023 Sodium [Moles/Vol] 131 mmol/L 136-145 [facility] Urea nitrogen [Mass/volume] in Serum or PlasmaOrdered By: Sushant Cordon on 05-02-2023 Urea nitrogen [Mass/Vol] 21 mg/dL 7-25 [facility] WBC Auto (Bld) [#/Vol]Ordere d By: Sushant Cordon on 05-02-2023 WBC (Bld) [#/Vol] 8.6 10*3/uL 4.1-10.5 [facility] Basic Metabolic Panelon 04-12 Anion gap [Moles/Vol] 8.6 mmol/L Normal 6.0-15.0 [facility] Comment on above: Performed By: #### B MP, LIPID, CBC ####[facility] [place] [address] [facility] Calcium [Mass/Vol] 8.0 mg/dL Low 8.6-10.3 [facility] Comment on above: Performed By: #### B MP, LIPID, CBC ####[facility] [place] [address] [place] Chloride [Moles/Vol] 97 mmol/L Low 98-107 [facility] Comment on above: Performed By: #### B MP, LIPID, CBC ####[facility] [place] [address] [place] CO2 [Moles/Vol] 32.9 mmol/L High 21.0-31.0 [facility] Comment on above: Performed By: #### B MP, LIPID, CBC ####[place] [address] Creatinine [Mass/Vol] 0.77 mg/dL Normal 0.70-1.30 [facility] Comment on above: Performed By: #### B MP, LIPID, CBC ####[place] [id number] [facility] Creatinine Clr Calc Pharmacy 63.00 Normal [facility] Comment on above: Performed By: #### B MP, LIPID, CBC ####[place] [address] [place] GFR/1.73 sq M.predicted MDRD (S/P/Bld) [Vol rate/Area] mL/min/{1.73_m2} Normal [facility] Comment on above: Performed By: #### B MP, LIPID, CBC ####[address] Glucose [Mass/Vol] 86 mg/dL Normal 70-100 [facility] Comment on above: Result Comment: [facility] Glucose Reference Range is dependent on time and content of last meal. Glucose of more than 200 mg/dL in a nonstressed, ambulatory subject supports the diagnosis of Diabetes Mellitus. ADA recommended reference range Performed By: #### B MP, LIPID, CBC ####[address] Potassium [Moles/Vol] 4.5 mmol/L Normal 3.5-5.1 [facility] Comment on above: Performed By: #### B MP, LIPID, CBC ####[address] Sodium [Moles/Vol] 134 mmol/L Low 136-145 [facility] Comment on above: Performed By: #### B MP, LIPID, CBC ####[place] [id number] [facility] Urea nitrogen [Mass/Vol] 17 mg/dL Normal 7-25 [facility] Comment on above: Performed By: #### B MP, LIPID, CBC ####[address] [address] [facility] Complete Blood Count Auto Di ffon 05-01-2023 Basophils (Bld) [#/Vol] 0.0 10*3/uL Normal 0.0-0.2 [facility] Comment on above: Result Comment: PERF ORMED BY:[address] [place], [place] [phone] MEDICAL DIRECTORAIRAM MAST M.D. Performed By: #### B MP, LIPID, CBC ####[place] [id number] [facility] Basophils/100 WBC (Bld) 0.3 % Normal . [facility] Comment on above: Performed By: #### B MP, LIPID, CBC ####[address] Eosinophils (Bld) [#/Vol] 0.0 10*3/uL Normal 0.0-0.45 [facility] Comment on above: Performed By: #### B MP, LIPID, CBC ####[address] Eosinophils/100 WBC (Bld) 0.6 % Normal . [facility] Comment on above: Performed By: #### B MP, LIPID, CBC ####[address] Erythrocyte distribution width (RBC) [Ratio] 17.7 % High 12.0-14.8 [facility] Comment on above: Performed By: #### B MP, LIPID, CBC ####[place] [id number] [facility] Hematocrit (Bld) [Volume fraction] 29.9 % Low 38.8-50.0 [facility] Comment on above: Performed By: #### B MP, LIPID, CBC ####[address] Hemoglobin (Bld) [Mass/Vol] 9.8 g/dL Low 13.0-17.0 [facility] Comment on above: Performed By: #### B MP, LIPID, CBC ####[address] Lymphocytes (Bld) [#/Vol] 1.5 10*3/uL Normal 1.00-4.8 [facility] Comment on above: Performed By: #### B MP, LIPID, CBC ####[address] Lymphocytes/100 WBC (Bld) 16.8 % Normal . [facility] Comment on above: Performed By: #### B MP, LIPID, CBC ####[address] MCH (RBC) [Entitic mass] 27.8 pg Normal 27.5-35.2 [facility] Comment on above: Performed By: #### B MP, LIPID, CBC ####[address] MCV (RBC) [Entitic vol] 84.5 fL Normal 83.5-101 [facility] Comment on above: Performed By: #### B MP, LIPID, CBC ####[address] Mean Corpuscular HGB Conc 32.9 g/dL Normal 32.5-35.6 [facility] Comment on above: Performed By: #### B MP, LIPID, CBC ####[address] Monocytes (Bld) [#/Vol] 1.2 10*3/uL High 0.0-0.8 [facility] Comment on above: Performed By: #### B MP, LIPID, CBC ####[address] Monocytes/100 WBC (Bld) 14.1 % Normal . [facility] Comment on above: Performed By: #### B MP, LIPID, CBC ####[address] Neutrophils (Bld) [#/Vol] 6.0 10*3/uL Normal 1.8-7.7 [facility] Comment on above: Performed By: #### B MP, LIPID, CBC ####[place] [id number] [facility] Neutrophils/100 WBC (Bld) 68.2 % Normal . [facility] Comment on above: Performed By: #### B MP, LIPID, CBC ####[place] [id number] [facility] NRBC% 0.1 /100{WBC} Normal 0-0.5 [facility] Comment on above: Performed By: #### B MP, LIPID, CBC ####[place] [id number] [facility] Platelet mean volume (Bld) [Entitic vol] 9.5 fL Normal 6.6-10.1 [facility] Comment on above: Performed By: #### B MP, LIPID, CBC ####[address] Platelets (Bld) [#/Vol] 156 10*3/uL Normal 150-450 [facility] Comment on above: Performed By: #### B MP, LIPID, CBC ####[place] [id number] [facility] RBC (Bld) [#/Vol] 3.54 10*6/uL Low 3.90-5.60 [facility] Comment on above: Performed By: #### B MP, LIPID, CBC ####[place] [id number] [facility] WBC (Bld) [#/Vol] 8.8 10*3/uL Normal 4.1-10.5 [facility] Comment on above: Performed By: #### B MP, LIPID, CBC ####[place] [id number] [facility] Glucose Poct Glucometerson 1 Commemt1 Glu2: Cleaned Meter Normal [facility] Comment on above: Result Comment: PERF ORMED BY:[place] [address] [address] [place], [place] [phone] MEDICAL DIRECTORAIRAM MAST M.D. Performed By: #### G LULS ####Point of Care testing, Glucose [Mass/Vol] 340 mg/dL Normal [facility] Comment on above: Result Comment: [place] om Glucose Reference Range is dependent on time and content of last meal. Glucose of more than 200 mg/dL in a nonstressed, ambulatory subject supports the diagnosis of Diabetes Mellitus. Performed By: #### G LULS ####Point of Care testing, Glucose [Mass/Vol] 194 mg/dL Normal [facility] Comment on above: Result Comment: [place] om Glucose Reference Range is dependent on time and content of last meal. Glucose of more than 200 mg/dL in a nonstressed, ambulatory subject supports the diagnosis of Diabetes Mellitus.PERFORMED BY:[place] [address] [address] [place], [place] [phone] MEDICAL DIRECTORAIRAM MAST M.D. Performed By: #### G LULS ####Point of Care testing, Commemt1 Glu2: Cleaned Meter Normal [facility] Comment on above: Result Comment: PERF ORMED BY:[place] [address] [address] [place], [place] [phone] MEDICAL HUMBLE MAST M.D. Performed By: #### G LULS ####Point of Care testing, Glucose [Mass/Vol] 131 mg/dL Normal [facility] Comment on above: Result Comment: [place] om Glucose Reference Range is dependent on time and content of last meal. Glucose of more than 200 mg/dL in a nonstressed, ambulatory subject supports the diagnosis of Diabetes Mellitus. Performed By: #### G LULS ####Point of Care testing, Commemt1 Glu2: Cleaned Meter Normal [facility] Comment on above: Result Comment: PERF ORMED BY:[place] [address] [place], [place] [phone] MEDICAL DIRECTORAIRAM MAST M.D. Performed By: #### G LULS ####Point of Care testing, Glucose [Mass/Vol] 85 mg/dL Normal [facility] Comment on above: Result Comment: [place] om Glucose Reference Range is dependent on time and content of last meal. Glucose of more than 200 mg/dL in a nonstressed, ambulatory subject supports the diagnosis of Diabetes Mellitus. Performed By: #### G LUMARYA ####Point of Care testing, Glucose [Mass/Vol] 295 mg/dL Normal [facility] Comment on above: Result Comment: [place] om Glucose Reference Range is dependent on time and content of last meal. Glucose of more than 200 mg/dL in a nonstressed, ambulatory subject supports the diagnosis of Diabetes Mellitus.PERFORMED BY:[address] [place], [place] [phone] MEDICAL DIRECTORAIRAM MAST M.D. Performed By: #### G RIOS ####Point of Care testing, Lipid Panelon 05-01-2023 Cholesterol [Mass/Vol] 107 mg/dL Low 140-200 [facility] Comment on above: Result Comment: Chol less than 200 mg/dl low risk Chol 201-239 mg/dl borderline risk Chol 240 mg/dl and greater high risk Performed By: #### B MP, LIPID, CBC ####[place] [id number] [facility] Cholesterol in HDL [Mass/Vol] 51 mg/dL Normal 23-92 [facility] Comment on above: Result Comment: HDL CHOL ATP-III CLASSIFICATION Cardiovascular Risk HDL > or equal to 60 mg/dL LOW HDL < 40 mg/dL HIGH Performed By: #### B MP, LIPID, CBC ####[place] [id number] [facility] Cholesterol.total/Cho lesterol in HDL [Mass ratio] 2.1 {ratio} Normal <5.0 [facility] Comment on above: Result Comment: PERF ORMED BY:[place] [address] [place], [place] [phone] MEDICAL DIRECTORAIRAM MAST M.D. Performed By: #### B MP, LIPID, CBC ####[address] [place] [address] [facility] LDL Cholesterol,Calculate d 50 mg/dL Normal 0-100 [facility] Comment on above: Result Comment: LDL ATP III CLASSIFICATION LDL less than 100 mg/dL Optimal LDL 100-129 mg/dL Near or above optimal LDL 130-159 mg/dL Borderline high LDL 160-189 mg/dL High LDL greater than 189 mg/dL Very high Performed By: #### B MP, LIPID, CBC ####[place] [id number] [facility] Triglyceride w/Reflex 30 mg/dL Normal 0-149 [facility] Comment on above: Result Comment: TRIG ATP III CLASSIFICATION TRIG less than 150 mg/dL Normal TRIG 150-199 mg/dL Borderline high TRIG 200-500 mg/dL High TRIG greater than 500 mg/dL Very high Standard traceable to the Center for Disease Conrtrol and Prevention (CDC) test method. Performed By: #### B MP, LIPID, CBC ####[place] [id number] [facility] VLDL CHOLESTEROL 6 mg/dL Normal [facility] Comment on above: Performed By: #### B MP, LIPID, CBC ####[address] Activated partial thrombopla stin time (aPTT) in platelet poor plasma by coagulation aOrdered By: Anat Perez on 04-30-2023 aPTT Coag (PPP) [Time] 30.6 s 25.1-36.5 [facility] Comment on above: A hematocrit value g reater than 55% may lead to inaccurate results in coagulation testing. Patients having hematocrit values >55% require a special collection tube for coagulation studies. Please contact the laboratory at [phone] for redraw instructions. B-Type Natriuretic Peptideon 04-30-2023 Natriuretic peptide B (Bld) [Mass/Vol] 523.0 pg/mL High 5-100 [facility] Comment on above: Result Comment: PERF ORMED BY:[address] [place], [place] [phone] MEDICAL DIRECTORAIRAM MAST M.D. Performed By: #### B VP OF [employer] MARKETING ####[address] Natriuretic peptide B (Bld) [Mass/Vol] 630.0 pg/mL High 5-100 [facility] Comment on above: Result Comment: PERF ORMED BY:[place] [address] [place], [place] [phone] MEDICAL DIRECTORAIRAM MAST M.D. Performed By: #### H S TROP, BMP, BNP, PTT, PT, CBC ####[address] Basic Metabolic Panelon 10-2 -2022 Anion gap [Moles/Vol] 7.9 mmol/L Normal 6.0-15.0 [facility] Comment on above: Performed By: #### H S TROP, BMP, BNP, PTT, PT, CBC ####[address] Calcium [Mass/Vol] 8.4 mg/dL Low 8.6-10.3 [facility] Comment on above: Performed By: #### H S TROP, BMP, BNP, PTT, PT, CBC ####[address] Chloride [Moles/Vol] 96 mmol/L Low 98-107 [facility] Comment on above: Performed By: #### H S TROP, BMP, BNP, PTT, PT, CBC ####[address] CO2 [Moles/Vol] 33.2 mmol/L High 21.0-31.0 [facility] Comment on above: Performed By: #### H S TROP, BMP, BNP, PTT, PT, CBC ####[address] Creatinine [Mass/Vol] 0.68 mg/dL Low 0.70-1.30 [facility] Comment on above: Performed By: #### H S TROP, BMP, BNP, PTT, PT, CBC ####[place] [id number] [facility] Creatinine Clr Calc Pharmacy 57.66 Normal [facility] Comment on above: Result Comment: PERF ORMED BY:[address] [place], [place] [phone] MEDICAL DIRECTORAIRAM MAST M.D. Performed By: #### H S TROP, BMP, BNP, PTT, PT, CBC ####[place] [id number] [facility] GFR/1.73 sq M.predicted MDRD (S/P/Bld) [Vol rate/Area] mL/min/{1.73_m2} Normal [facility] Comment on above: Performed By: #### H S TROP, BMP, BNP, PTT, PT, CBC ####[address] Glucose [Mass/Vol] 163 mg/dL High 70-100 The [facility] Comment on above: Result Comment: [place] Glucose Reference Range is dependent on time and content of last meal. Glucose of more than 200 mg/dL in a nonstressed, ambulatory subject supports the diagnosis of Diabetes Mellitus. ADA recommended reference range Performed By: #### H S TROP, BMP, BNP, PTT, PT, CBC ####[place] [id number] [facility] Potassium [Moles/Vol] 4.1 mmol/L Normal 3.5-5.1 [facility] Comment on above: Performed By: #### H S TROP, BMP, BNP, PTT, PT, CBC ####[place] [id number] [facility] Sodium [Moles/Vol] 133 mmol/L Low 136-145 [facility] Comment on above: Performed By: #### H S TROP, BMP, BNP, PTT, PT, CBC ####[place] [id number] [facility] Urea nitrogen [Mass/Vol] 12 mg/dL Normal 7-25 [facility] Comment on above: Performed By: #### H S TROP, BMP, BNP, PTT, PT, CBC ####[facility] [place] [address] [facility] Anion gap [Moles/Vol] 5.4 mmol/L Low 6.0-15.0 [facility] Comment on above: Performed By: #### B MP, CBC ####[address] [address] [facility] Calcium [Mass/Vol] 8.5 mg/dL Low 8.6-10.3 [facility] Comment on above: Performed By: #### B MP, CBC ####[address] [address] [facility] Chloride [Moles/Vol] 98 mmol/L Normal 98-107 [facility] Comment on above: Performed By: #### B MP, CBC ####[address] [address] [facility] CO2 [Moles/Vol] 35.0 mmol/L High 21.0-31.0 [facility] Comment on above: Performed By: #### B MP, CBC ####[address] [address] [facility] Creatinine [Mass/Vol] 0.71 mg/dL Normal 0.70-1.30 [facility] Comment on above: Performed By: #### B MP, CBC ####[address] [address] [place] Creatinine Clr Calc Pharmacy 57.66 Normal [facility] Comment on above: Result Comment: PERF ORMED BY:[address] [place], [place] [phone] MEDICAL HUMBLE MAST M.D. Performed By: #### B MP, CBC ####[address] [address] [place] GFR/1.73 sq M.predicted MDRD (S/P/Bld) [Vol rate/Area] mL/min/{1.73_m2} Normal [facility] Comment on above: Performed By: #### B MP, CBC ####[address] [place] [address] [facility] Glucose [Mass/Vol] 72 mg/dL Normal 70-100 [facility] Comment on above: Result Comment: [place] Glucose Reference Range is dependent on time and content of last meal. Glucose of more than 200 mg/dL in a nonstressed, ambulatory subject supports the diagnosis of Diabetes Mellitus. ADA recommended reference range Performed By: #### B MP, CBC ####[place] [id number] [facility] Potassium [Moles/Vol] 4.4 mmol/L Normal 3.5-5.1 [facility] Comment on above: Performed By: #### B MP, CBC ####[address] Sodium [Moles/Vol] 134 mmol/L Low 136-145 [facility] Comment on above: Performed By: #### B MP, CBC ####[place] [id number] [facility] Urea nitrogen [Mass/Vol] 12 mg/dL Normal 7-25 [facility] Comment on above: Performed By: #### B MP, CBC ####[place] [id number] [facility] Coagulation Profileon 2022 aPTT Coag (Bld) [Time] 29.5 s Normal 25.1-36.5 [facility] Comment on above: Result Comment: A he matocrit value greater than 55% may lead to inaccurate results in coagulation testing. Patients having hematocrit values >55% require a special collection tube for coagulation studies. Please contact the laboratory at [phone] for redraw instructions.PERFORMED BY:[address] [place], [place] [phone] MEDICAL DIRECTORAIRAM MAST M.D. Performed By: #### P P ####[place] [id number] [facility] INR Coag (PPP) [Relative time] 1.2 {INR} Normal [facility] Comment on above: Result Comment: INR Therapeutic [...] - 4.5 Performed By: #### P P ####[address] PT Coag (PPP) [Time] 14.8 s High 9.0-12.9 [facility] Comment on above: Result Comment: A he matocrit value greater than 55% may lead to inaccurate results in coagulation testing. Patients having hematocrit values >55% require a special collection tube for coagulation studies. Please contact the laboratory at [phone] for redraw instructions. Performed By: #### P P ####[address] Complete Blood Count Auto Di ffon 04-30-2023 Basophils (Bld) [#/Vol] 0.0 10*3/uL Normal 0.0-0.2 [facility] Comment on above: Result Comment: PERF ORMED BY:[address] [place], [place] [phone] MEDICAL DIRECTORAIRAM MAST M.D. Performed By: #### H S TROP, BMP, BNP, PTT, PT, CBC ####[address] Basophils/100 WBC (Bld) 0.3 % Normal . [facility] Comment on above: Performed By: #### H S TROP, BMP, BNP, PTT, PT, CBC ####[address] Eosinophils (Bld) [#/Vol] 0.0 10*3/uL Normal 0.0-0.45 [facility] Comment on above: Performed By: #### H S TROP, BMP, BNP, PTT, PT, CBC ####[address] Eosinophils/100 WBC (Bld) 0.0 % Normal . [facility] Comment on above: Performed By: #### H S TROP, BMP, BNP, PTT, PT, CBC ####[address] Erythrocyte distribution width (RBC) [Ratio] 17.8 % High 12.0-14.8 [facility] Comment on above: Performed By: #### H S TROP, BMP, BNP, PTT, PT, CBC ####[address] Hematocrit (Bld) [Volume fraction] 35.8 % Low 38.8-50.0 [facility] Comment on above: Performed By: #### H S TROP, BMP, BNP, PTT, PT, CBC ####[address] Hemoglobin (Bld) [Mass/Vol] 11.8 g/dL Low 13.0-17.0 [facility] Comment on above: Performed By: #### H S TROP, BMP, BNP, PTT, PT, CBC ####[address] Lymphocytes (Bld) [#/Vol] 0.6 10*3/uL Low 1.00-4.8 [facility] Comment on above: Performed By: #### H S TROP, BMP, BNP, PTT, PT, CBC ####[address] Lymphocytes/100 WBC (Bld) 5.9 % Normal . [facility] Comment on above: Performed By: #### H S TROP, BMP, BNP, PTT, PT, CBC ####[address] MCH (RBC) [Entitic mass] 27.9 pg Normal 27.5-35.2 [facility] Comment on above: Performed By: #### H S TROP, BMP, BNP, PTT, PT, CBC ####[address] MCV (RBC) [Entitic vol] 84.7 fL Normal 83.5-101 [facility] Comment on above: Performed By: #### H S TROP, BMP, BNP, PTT, PT, CBC ####[address] Mean Corpuscular HGB Conc 32.9 g/dL Normal 32.5-35.6 [facility] Comment on above: Performed By: #### H S TROP, BMP, BNP, PTT, PT, CBC ####[address] Monocytes (Bld) [#/Vol] 1.4 10*3/uL High 0.0-0.8 [facility] Comment on above: Performed By: #### H S TROP, BMP, BNP, PTT, PT, CBC ####[address] Monocytes/100 WBC (Bld) 14.6 % Normal . [facility] Comment on above: Performed By: #### H S TROP, BMP, BNP, PTT, PT, CBC ####[address] Neutrophils (Bld) [#/Vol] 7.4 10*3/uL Normal 1.8-7.7 [facility] Comment on above: Performed By: #### H S TROP, BMP, BNP, PTT, PT, CBC ####[address] Neutrophils/100 WBC (Bld) 79.2 % Normal . [facility] Comment on above: Performed By: #### H S TROP, BMP, BNP, PTT, PT, CBC ####[address] NRBC% 0.1 /100{WBC} Normal 0-0.5 [facility] Comment on above: Performed By: #### H S TROP, BMP, BNP, PTT, PT, CBC ####[address] Platelet mean volume (Bld) [Entitic vol] 9.9 fL Normal 6.6-10.1 [facility] Comment on above: Performed By: #### H S TROP, BMP, BNP, PTT, PT, CBC ####[address] Platelets (Bld) [#/Vol] 194 10*3/uL Normal 150-450 [facility] Comment on above: Performed By: #### H S TROP, BMP, BNP, PTT, PT, CBC ####[address] RBC (Bld) [#/Vol] 4.23 10*6/uL Normal 3.90-5.60 [facility] Comment on above: Performed By: #### H S TROP, BMP, BNP, PTT, PT, CBC ####[address] WBC (Bld) [#/Vol] 9.3 10*3/uL Normal 4.1-10.5 [facility] Comment on above: Performed By: #### H S TROP, BMP, BNP, PTT, PT, CBC ####[address] Basophils (Bld) [#/Vol] 0.0 10*3/uL Normal 0.0-0.2 [facility] Comment on above: Result Comment: PERF ORMED BY:[address] [place], [place] [phone] MEDICAL DIRECTORAIRAM MAST M.D. Performed By: #### B MP, CBC ####[address] Basophils/100 WBC (Bld) 0.4 % Normal . [facility] Comment on above: Performed By: #### B MP, CBC ####[address] Eosinophils (Bld) [#/Vol] 0.1 10*3/uL Normal 0.0-0.45 [facility] Comment on above: Performed By: #### B MP, CBC ####[address] Eosinophils/100 WBC (Bld) 0.6 % Normal . [facility] Comment on above: Performed By: #### B MP, CBC ####[place] [id number] [facility] Erythrocyte distribution width (RBC) [Ratio] 18.0 % High 12.0-14.8 [facility] Comment on above: Performed By: #### B MP, CBC ####[address] Hematocrit (Bld) [Volume fraction] 33.7 % Low 38.8-50.0 [facility] Comment on above: Performed By: #### B MP, CBC ####[address] Hemoglobin (Bld) [Mass/Vol] 11.2 g/dL Low 13.0-17.0 [facility] Comment on above: Performed By: #### B MP, CBC ####[address] Lymphocytes (Bld) [#/Vol] 2.0 10*3/uL Normal 1.00-4.8 [facility] Comment on above: Performed By: #### B MP, CBC ####[address] Lymphocytes/100 WBC (Bld) 22.0 % Normal . [facility] Comment on above: Performed By: #### B MP, CBC ####[place] [id number] [facility] MCH (RBC) [Entitic mass] 28.1 pg Normal 27.5-35.2 [facility] Comment on above: Performed By: #### B MP, CBC ####[address] MCV (RBC) [Entitic vol] 84.7 fL Normal 83.5-101 [facility] Comment on above: Performed By: #### B MP, CBC ####[place] [id number] [facility] Mean Corpuscular HGB Conc 33.2 g/dL Normal 32.5-35.6 [facility] Comment on above: Performed By: #### B MP, CBC ####[address] [address] [facility] Monocytes (Bld) [#/Vol] 1.5 10*3/uL High 0.0-0.8 [facility] Comment on above: Performed By: #### B MP, CBC ####[place] [id number] [facility] Monocytes/100 WBC (Bld) 16.4 % Normal . [facility] Comment on above: Performed By: #### B MP, CBC ####[address] Neutrophils (Bld) [#/Vol] 5.4 10*3/uL Normal 1.8-7.7 [facility] Comment on above: Performed By: #### B MP, CBC ####[place] [id number] [facility] Neutrophils/100 WBC (Bld) 60.6 % Normal . [facility] Comment on above: Performed By: #### B MP, CBC ####[place] [id number] [facility] NRBC% 0.1 /100{WBC} Normal 0-0.5 [facility] Comment on above: Performed By: #### B MP, CBC ####[place] [id number] [facility] Platelet mean volume (Bld) [Entitic vol] 9.1 fL Normal 6.6-10.1 [facility] Comment on above: Performed By: #### B MP, CBC ####[address] [address] [facility] Platelets (Bld) [#/Vol] 173 10*3/uL Normal 150-450 [facility] Comment on above: Performed By: #### B MP, CBC ####[address] [address] [facility] RBC (Bld) [#/Vol] 3.98 10*6/uL Normal 3.90-5.60 [facility] Comment on above: Performed By: #### B MP, CBC ####[address] [address] [facility] WBC (Bld) [#/Vol] 9.0 10*3/uL Normal 4.1-10.5 [facility] Comment on above: Performed By: #### B MP, CBC ####[place] [id number] [facility] ECG 12 lead ECGon 04-30-2023 ECG 12 lead ECG Normal [facility] Glucose Poct Glucometerson 1 Commemt1 Glu2: Cleaned Meter Normal [facility] Comment on above: Result Comment: PERF ORMED BY:[address] [place], [place] [phone] MEDICAL DIRECTORAIRAM MAST M.D. Performed By: #### G LULS ####Point of Care testing, Glucose [Mass/Vol] 375 mg/dL Normal [facility] Comment on above: Result Comment: [place] Glucose Reference Range is dependent on time and content of last meal. Glucose of more than 200 mg/dL in a nonstressed, ambulatory subject supports the diagnosis of Diabetes Mellitus. Performed By: #### G LULS ####Point of Care testing, Glucose [Mass/Vol] 162 mg/dL Normal [facility] Comment on above: Result Comment: [place] om Glucose Reference Range is dependent on time and content of last meal. Glucose of more than 200 mg/dL in a nonstressed, ambulatory subject supports the diagnosis of Diabetes Mellitus.PERFORMED BY:[address] [place], [place] [phone] MEDICAL DIRECTORAIRAM MAST M.D. Performed By: #### G LULS ####Point of Care testing, Glucose [Mass/Vol] 149 mg/dL Normal [facility] Comment on above: Result Comment: [place] om Glucose Reference Range is dependent on time and content of last meal. Glucose of more than 200 mg/dL in a nonstressed, ambulatory subject supports the diagnosis of Diabetes Mellitus.PERFORMED BY:[place] [address] [place], [place] [phone] MEDICAL DIRECTORAIRAM MAST M.D. Performed By: #### G LULS ####Point of Care testing, Commemt1 Glu2: Cleaned Meter Normal [facility] Comment on above: Result Comment: PERF ORMED BY:[place] [address] [place], [place] [phone] MEDICAL DIRECTORAIRAM MAST M.D. Performed By: #### G LULS ####Point of Care testing, Glucose [Mass/Vol] 130 mg/dL Normal [facility] Comment on above: Result Comment: [place] om Glucose Reference Range is dependent on time and content of last meal. Glucose of more than 200 mg/dL in a nonstressed, ambulatory subject supports the diagnosis of Diabetes Mellitus. Performed By: #### G LULS ####Point of Care testing, Glucose [Mass/Vol] 118 mg/dL Normal [facility] Comment on above: Result Comment: [place] om Glucose Reference Range is dependent on time and content of last meal. Glucose of more than 200 mg/dL in a nonstressed, ambulatory subject supports the diagnosis of Diabetes Mellitus.PERFORMED BY:[place] [address] [place], [place] [phone] MEDICAL DIRECTORAIRAM MAST M.D. Performed By: #### G LULS ####Point of Care testing, Glucose [Mass/Vol] 83 mg/dL Normal [facility] Comment on above: Result Comment: [place] om Glucose Reference Range is dependent on time and content of last meal. Glucose of more than 200 mg/dL in a nonstressed, ambulatory subject supports the diagnosis of Diabetes Mellitus.PERFORMED BY:[place] [address] [place], [place] [phone] MEDICAL HUMBLE MAST M.D. Performed By: #### G LULS ####Point of Care testing, Commemt1 Normal [facility] Comment on above: Result Comment: Glu2 : WILL NOTIFY /ROCÍOERFORMED BY:[place] [address] [place], [place] [phone] MEDICAL HUMBLE MAST M.D. Performed By: #### G LULS ####Point of Care testing, Glucose [Mass/Vol] 53 mg/dL Off scale low [facility] Comment on above: Result Comment: [place] om Glucose Reference Range is dependent on time and content of last meal. Glucose of more than 200 mg/dL in a nonstressed, ambulatory subject supports the diagnosis of Diabetes Mellitus. Performed By: #### G LULS ####Point of Care testing, Glucose [Mass/Vol] 75 mg/dL Normal [facility] Comment on above: Result Comment: [place] om Glucose Reference Range is dependent on time and content of last meal. Glucose of more than 200 mg/dL in a nonstressed, ambulatory subject supports the diagnosis of Diabetes Mellitus.PERFORMED BY:[place] [address] [place], [place] [phone] MEDICAL HUMBLE MAST M.D. Performed By: #### G LULS ####Point of Care testing, Glucose [Mass/Vol] 63 mg/dL Normal [facility] Comment on above: Result Comment: [place] om Glucose Reference Range is dependent on time and content of last meal. Glucose of more than 200 mg/dL in a nonstressed, ambulatory subject supports the diagnosis of Diabetes Mellitus.PERFORMED BY:[place] [address] [place], [place] [phone] KRYSTAL MAST M.D. Performed By: #### G LULS ####Point of Care testing, Glucose [Mass/Vol] 133 mg/dL Normal [facility] Comment on above: Result Comment: [place] om Glucose Reference Range is dependent on time and content of last meal. Glucose of more than 200 mg/dL in a nonstressed, ambulatory subject supports the diagnosis of Diabetes Mellitus.PERFORMED BY:[place] [id number] [place] [phone] MEDICAL DIRECTORAIRAM MAST M.D. Performed By: #### G LULS ####Point of Care testing, Glucose [Mass/Vol] 68 mg/dL Normal [facility] Comment on above: Result Comment: [facility] Glucose Reference Range is dependent on time and content of last meal. Glucose of more than 200 mg/dL in a nonstressed, ambulatory subject supports the diagnosis of Diabetes Mellitus.PERFORMED BY:[place] [address] [id number] MEDICAL DIRECTORAIRAM MAST M.D. Performed By: #### G LULS ####Point of Care testing, INR in Platelet poor plasma by Coagulation assayOrdered By: Anat Perez on 04-30-2023 INR Coag (PPP) [Relative time] 1.3 {INR} [facility] Comment on above: INR Therapeutic Rang e [...] peptide B (Bld) [Mass/Vol] 523.0 pg/mL 5-100 [facility] Partial Thromboplastin Timeo n 04-30-2023 aPTT Coag (Bld) [Time] 30.6 s Normal 25.1-36.5 [facility] Comment on above: Result Comment: A he matocrit value greater than 55% may lead to inaccurate results in coagulation testing. Patients having hematocrit values >55% require a special collection tube for coagulation studies. Please contact the laboratory at [phone] for redraw instructions.PERFORMED BY:[facility] [place], [place] [phone] MEDICAL DIRECTORAIRAM MAST M.D. Performed By: #### H S TROP, BMP, BNP, PTT, PT, CBC ####[facility] [place] [address] [facility] Prothrombin Time INRon 04-30 INR Coag (PPP) [Relative time] 1.3 {INR} Normal [facility] Comment on above: Result Comment: INR Therapeutic [...] S TROP, BMP, BNP, PTT, PT, CBC ####[facility] [place] [address] [facility] PT Coag (PPP) [Time] 15.6 s High 9.0-12.9 [facility] Comment on above: Result Comment: A he matocrit value greater than 55% may lead to inaccurate results in coagulation testing. Patients having hematocrit values >55% require a special collection tube for coagulation studies. Please contact the laboratory at [phone] for redraw instructions. Performed By: #### H S TROP, BMP, BNP, PTT, PT, CBC ####[facility] [place] [address] [facility] Prothrombin time (PT)Ordered By: Anat Perez on 04-30-2023 PT Coag (PPP) [Time] 15.6 s 9.0-12.9 [facility] Comment on above: A hematocrit value g reater than 55% may lead to inaccurate results in coagulation testing. Patients having hematocrit values >55% require a special collection tube for coagulation studies. Please contact the laboratory at [phone] for redraw instructions. Troponin I High Sensitivityo n 04-30-2023 Troponin I High Sensitivity 53.7 pg/mL Off scale high 0.0-20.0 [facility] Comment on above: Result Comment: Crit ical Result : Called to and read back by: STEVEN BYRD at: 04/30/2023 19:24:20 by:[id number] BY:[place] [address] [place], [place] [phone] MEDICAL DIRECTORAIRAM MAST M.D. Performed By: #### H S TROP ####[address] [address] [facility] Troponin I High Sensitivity 26.1 pg/mL High 0.0-20.0 [facility] Comment on above: Result Comment: PERF ORMED BY:[place] [address] [place], [place] [phone] MEDICAL DIRECTORAIRAM MAST M.D. Performed By: #### H S TROP ####[address] [address] [facility] Troponin I High Sensitivity 24.6 pg/mL High 0.0-20.0 [facility] Comment on above: Result Comment: PERF ORMED BY:[place] [place], [place] [phone] MEDICAL HUMBLE MAST M.D. Performed By: #### H S TROP, BMP, BNP, PTT, PT, CBC ####[address] [address] [facility] Troponin I High Sensitivity 26.8 pg/mL High 0.0-20.0 [facility] Comment on above: Result Comment: PERF ORMED BY:[place] [place], [place] [phone] MEDICAL DIRECTORAIRAM MAST M.D. Performed By: #### H S TROP ####[address] [address] [facility] Troponin I.cardiac [Mass/vol ume] in Serum or Plasma by Detection limit <= 0.01 ng/Ordered By: Anat Perez on 10-20-2023 Troponin I.cardiac DL <= 0.01 ng/mL [Mass/Vol] 53.7 pg/mL 0.0-20.0 [facility] Comment on above: Critical Result : Ca lled to and read back by: STEVEN BYRD at: 04/30/2023 19:24:20 by:[id number] Type and Screenon 04-30-2023 ABO and Rh group Nom (Bld) Blood group A Rh(D) positive Normal [facility] Comment on above: Result Comment: PERF ORMED BY:[address] [place], [place] [phone] MEDICAL DIRECTORAIRAM MAST M.D. XR chest 1V portableon 04-30 XR chest 1V portable Normal [facility] XR hip RT min 2V(w/wo pelvis )*on 04-30-2023 XR hip RT min 2V(w/wo pelvis)* Normal [facility] Basic Metabolic Panelon 04-11 Anion gap [Moles/Vol] 8.5 mmol/L Normal 6.0-15.0 [facility] Comment on above: Order Comment: FASTI NG Y Performed By: #### F E and TIBC, CBC, MG, BMP, [id number], LIPID, CIARAN ####[place] [address] [place] [id number] [facility] Calcium [Mass/Vol] 8.4 mg/dL Low 8.6-10.3 [facility] Comment on above: Order Comment: FASTI NG Y Performed By: #### F E and TIBC, CBC, MG, BMP, [id number], LIPID, CIARAN ####[facility] [place] [address] [facility] Chloride [Moles/Vol] 100 mmol/L Normal 98-107 [facility] Comment on above: Order Comment: FASTI NG Y Performed By: #### F E and TIBC, CBC, MG, BMP, [id number], LIPID, CIARAN ####[address] [address] [facility] CO2 [Moles/Vol] 32.3 mmol/L High 21.0-31.0 [facility] Comment on above: Order Comment: FASTI NG Y Performed By: #### F E and TIBC, CBC, MG, BMP, [id number], LIPID, CIARAN ####[place] [address] Creatinine [Mass/Vol] 0.79 mg/dL Normal 0.70-1.30 [facility] Comment on above: Order Comment: FASTI NG Y Performed By: #### F E and TIBC, CBC, MG, BMP, [id number], LIPID, CIARAN ####[address] Creatinine Clr Calc Pharmacy 57.75 Normal [facility] Comment on above: Order Comment: FASTI NG Y Performed By: #### F E and TIBC, CBC, MG, BMP, [id number], LIPID, CIARAN ####[address] GFR/1.73 sq M.predicted MDRD (S/P/Bld) [Vol rate/Area] mL/min/{1.73_m2} Normal [facility] Comment on above: Order Comment: FASTI NG Y Performed By: #### F E and TIBC, CBC, MG, BMP, [id number], LIPID, CIARAN ####[address] Glucose [Mass/Vol] 106 mg/dL High 70-100 [facility] Comment on above: Order Comment: FASTI NG Y Result Comment: [place] Glucose Reference Range is dependent on time and content of last meal. Glucose of more than 200 mg/dL in a nonstressed, ambulatory subject supports the diagnosis of Diabetes Mellitus. ADA recommended reference range Performed By: #### F E and TIBC, CBC, MG, BMP, [id number], LIPID, CIARAN ####[place] [address] Potassium [Moles/Vol] 4.8 mmol/L Normal 3.5-5.1 [facility] Comment on above: Order Comment: FASTI NG Y Performed By: #### F E and TIBC, CBC, MG, BMP, [id number], LIPID, CIARAN ####[address] Sodium [Moles/Vol] 136 mmol/L Normal 136-145 [facility] Comment on above: Order Comment: FASTI NG Y Performed By: #### F E and TIBC, CBC, MG, BMP, [id number], LIPID, CIARAN ####[address] Urea nitrogen [Mass/Vol] 15 mg/dL Normal 7-25 [facility] Comment on above: Order Comment: FASTI NG Y Performed By: #### F E and TIBC, CBC, MG, BMP, [id number], LIPID, CIARAN ####[address] Complete Blood Count Auto Di ffon 04-29-2023 Basophils (Bld) [#/Vol] 0.0 10*3/uL Normal 0.0-0.2 [facility] Comment on above: Result Comment: PERF ORMED BY:[address] [place], [place] [phone] MEDICAL DIRECTORAIRAM MAST M.D. Performed By: #### F E and TIBC, CBC, MG, BMP, [id number], LIPID, CIARAN ####[address] Basophils/100 WBC (Bld) 0.3 % Normal . [facility] Comment on above: Performed By: #### F E and TIBC, CBC, MG, BMP, [id number], LIPID, CIARAN ####[address] Eosinophils (Bld) [#/Vol] 0.1 10*3/uL Normal 0.0-0.45 [facility] Comment on above: Performed By: #### F E and TIBC, CBC, MG, BMP, [id number], LIPID, CIARAN ####[address] Eosinophils/100 WBC (Bld) 1.3 % Normal . [facility] Comment on above: Performed By: #### F E and TIBC, CBC, MG, BMP, [id number], LIPID, CIARAN ####[address] Erythrocyte distribution width (RBC) [Ratio] 18.3 % High 12.0-14.8 [facility] Comment on above: Performed By: #### F E and TIBC, CBC, MG, BMP, [id number], LIPID, CIARAN ####[address] Hematocrit (Bld) [Volume fraction] 32.9 % Low 38.8-50.0 [facility] Comment on above: Performed By: #### F E and TIBC, CBC, MG, BMP, [id number], LIPID, CIARAN ####[address] Hemoglobin (Bld) [Mass/Vol] 10.9 g/dL Low 13.0-17.0 [facility] Comment on above: Performed By: #### F E and TIBC, CBC, MG, BMP, [id number], LIPID, CIARAN ####[address] Lymphocytes (Bld) [#/Vol] 2.0 10*3/uL Normal 1.00-4.8 [facility] Comment on above: Performed By: #### F E and TIBC, CBC, MG, BMP, [id number], LIPID, CIARAN ####[address] Lymphocytes/100 WBC (Bld) 26.5 % Normal . [facility] Comment on above: Performed By: #### F E and TIBC, CBC, MG, BMP, [id number], LIPID, CIARAN ####[address] MCH (RBC) [Entitic mass] 28.0 pg Normal 27.5-35.2 [facility] Comment on above: Performed By: #### F E and TIBC, CBC, MG, BMP, [id number], LIPID, CIARAN ####[address] MCV (RBC) [Entitic vol] 84.9 fL Normal 83.5-101 [facility] Comment on above: Performed By: #### F E and TIBC, CBC, MG, BMP, [id number], LIPID, CIARAN ####[address] Mean Corpuscular HGB Conc 33.0 g/dL Normal 32.5-35.6 [facility] Comment on above: Performed By: #### F E and TIBC, CBC, MG, BMP, [id number], LIPID, CIARAN ####[address] Monocytes (Bld) [#/Vol] 1.1 10*3/uL High 0.0-0.8 [facility] Comment on above: Performed By: #### F E and TIBC, CBC, MG, BMP, [id number], LIPID, CIARAN ####[address] Monocytes/100 WBC (Bld) 14.9 % Normal . [facility] Comment on above: Performed By: #### F E and TIBC, CBC, MG, BMP, [id number], LIPID, CIARAN ####[address] Neutrophils (Bld) [#/Vol] 4.3 10*3/uL Normal 1.8-7.7 [facility] Comment on above: Performed By: #### F E and TIBC, CBC, MG, BMP, [id number], LIPID, CIARAN ####[address] Neutrophils/100 WBC (Bld) 57.0 % Normal . [facility] Comment on above: Performed By: #### F E and TIBC, CBC, MG, BMP, [id number], LIPID, CIARAN ####[address] NRBC% 0.1 /100{WBC} Normal 0-0.5 [facility] Comment on above: Performed By: #### F E and TIBC, CBC, MG, BMP, [id number], LIPID, CIARAN ####[address] Platelet mean volume (Bld) [Entitic vol] 9.3 fL Normal 6.6-10.1 [facility] Comment on above: Performed By: #### F E and TIBC, CBC, MG, BMP, [id number], LIPID, CIARAN ####[address] Platelets (Bld) [#/Vol] 186 10*3/uL Normal 150-450 [facility] Comment on above: Performed By: #### F E and TIBC, CBC, MG, BMP, [id number], LIPID, CIARAN ####[address] RBC (Bld) [#/Vol] 3.88 10*6/uL Low 3.90-5.60 [facility] Comment on above: Performed By: #### F E and TIBC, CBC, MG, BMP, [id number], LIPID, CIARAN ####[address] WBC (Bld) [#/Vol] 7.5 10*3/uL Normal 4.1-10.5 [facility] Comment on above: Performed By: #### F E and TIBC, CBC, MG, BMP, [id number], LIPID, CIARAN ####[address] ECH echo transthoracicon ECH echo transthoracic Normal [facility] Ferritinon 04-29-2023 Ferritin [Mass/Vol] 41.5 ng/mL Normal 23.9-336.2 [facility] Comment on above: Order Comment: FASTI NG Y Performed By: #### F E and TIBC, CBC, MG, BMP, [id number], LIPID, CIARAN ####[facility] [id number] [place] [address] [facility] Ferritin [Mass/volume] in Se rum or PlasmaOrdered By: Sushant Cordon on 04-29-2023 Ferritin [Mass/Vol] 41.5 ng/mL 23.9-336.2 [facility] Folate [Mass/volume] in Seru m or PlasmaOrdered By: Sushant Cordon on 04-29-2023 Folate [Mass/Vol] 28.0 ng/mL >5.9 [facility] Comment on above: Folate reference ran ge: >5.9 ng/mlThe WHO technical consultation on folate and vitamin [id number] has determined that folate concentrations lessthan 4 ng/ml are considered deficient. Glucose Poct Glucometerson 1 Glucose [Mass/Vol] 323 mg/dL Normal [facility] Comment on above: Result Comment: [place] Glucose Reference Range is dependent on time and content of last meal. Glucose of more than 200 mg/dL in a nonstressed, ambulatory subject supports the diagnosis of Diabetes Mellitus.PERFORMED BY:[address] [place], [place] [phone] MEDICAL DIRECTORAIRAM MAST M.D. Performed By: #### G LULS ####Point of Care testing, Glucose [Mass/Vol] 238 mg/dL Normal [facility] Comment on above: Result Comment: [place] Glucose Reference Range is dependent on time and content of last meal. Glucose of more than 200 mg/dL in a nonstressed, ambulatory subject supports the diagnosis of Diabetes Mellitus.PERFORMED BY:[address] [place], [place] [phone] MEDICAL DIRECTORAIRAM MAST M.D. Performed By: #### G LULS ####Point of Care testing, Commemt1 Glu2: Cleaned Meter Normal [facility] Comment on above: Result Comment: PERF ORMED BY:[place] [place], [place] [phone] MEDICAL DIRECTORAIRAM MAST M.D. Performed By: #### G LULS ####Point of Care testing, Glucose [Mass/Vol] 81 mg/dL Normal [facility] Comment on above: Result Comment: [place] om Glucose Reference Range is dependent on time and content of last meal. Glucose of more than 200 mg/dL in a nonstressed, ambulatory subject supports the diagnosis of Diabetes Mellitus. Performed By: #### G LULS ####Point of Care testing, Glucose [Mass/Vol] 141 mg/dL Normal [facility] Comment on above: Result Comment: [place] om Glucose Reference Range is dependent on time and content of last meal. Glucose of more than 200 mg/dL in a nonstressed, ambulatory subject supports the diagnosis of Diabetes Mellitus.PERFORMED BY:[place] [place], [place] [phone] MEDICAL DIRECTORAIRAM MAST M.D. Performed By: #### G LULS ####Point of Care testing, Glucose [Mass/Vol] 87 mg/dL Normal [facility] Comment on above: Result Comment: [place] om Glucose Reference Range is dependent on time and content of last meal. Glucose of more than 200 mg/dL in a nonstressed, ambulatory subject supports the diagnosis of Diabetes Mellitus.PERFORMED BY:[place] [place], [place] [phone] MEDICAL DIRECTORAIRAM MAST M.D. Performed By: #### G LULS ####Point of Care testing, Commemt1 Glu2: Cleaned Meter Normal [facility] Comment on above: Performed By: #### G LULS ####Point of Care testing, Commemt2 WILL NOTIFY DR/KARIN Normal [facility] Comment on above: Result Comment: PERF ORMED BY:[place] [address] [place], [place] [phone] MEDICAL DIRECTORAIRAM MAST M.D. Performed By: #### G LULS ####Point of Care testing, Glucose [Mass/Vol] 53 mg/dL Off scale low [facility] Comment on above: Result Comment: [place] om Glucose Reference Range is dependent on time and content of last meal. Glucose of more than 200 mg/dL in a nonstressed, ambulatory subject supports the diagnosis of Diabetes Mellitus. Performed By: #### G LULS ####Point of Care testing, Commemt1 Glu2: Cleaned Meter Normal [facility] Comment on above: Performed By: #### G LULS ####Point of Care testing, Commemt2 WILL NOTIFY DR/RN [facility] Comment on above: Result Comment: PERF ORMED BY:[place] [address] [place], [place] [phone] MEDICAL DIRECTORAIRAM MAST M.D. Performed By: #### G LULS ####Point of Care testing, Glucose [Mass/Vol] 47 mg/dL Off scale low [facility] Comment on above: Result Comment: [place] om Glucose Reference Range is dependent on time and content of last meal. Glucose of more than 200 mg/dL in a nonstressed, ambulatory subject supports the diagnosis of Diabetes Mellitus. Performed By: #### G LULS ####Point of Care testing, Commemt1 Glu2: Cleaned Meter Normal [facility] Comment on above: Result Comment: PERF ORMED BY:[place] [address] [place], [place] [phone] MEDICAL DIRECTORAIRAM MAST M.D. Performed By: #### G LULS ####Point of Care testing, Glucose [Mass/Vol] 58 mg/dL Off scale [facility] Comment on above: Result Comment: [place] om Glucose Reference Range is dependent on time and content of last meal. Glucose of more than 200 mg/dL in a nonstressed, ambulatory subject supports the diagnosis of Diabetes Mellitus. Performed By: #### G LULS ####Point of Care testing, Commemt1 Glu2: Cleaned Meter Normal [facility] Comment on above: Result Comment: PERF ORMED BY:[address] [place], [place] [phone] MEDICAL DIRECTORAIRAM MAST M.D. Performed By: #### G LULS ####Point of Care testing, Glucose [Mass/Vol] 59 mg/dL Off scale low [facility] Comment on above: Result Comment: [facility] Glucose Reference Range is dependent on time and content of last meal. Glucose of more than 200 mg/dL in a nonstressed, ambulatory subject supports the diagnosis of Diabetes Mellitus. Performed By: #### G LULS ####Point of Care testing, Iron [Mass/volume] in Serum or PlasmaOrdered By: Sushant Cordon on 04-29-2023 Iron [Mass/Vol] 45 ug/dL 50-212 [facility] Iron and TIBC Profileon 04-11 % Iron Saturation 13.6 % Low 20-50 [facility] Comment on above: Order Comment: FASTI NG Y Performed By: #### F E and TIBC, CBC, MG, BMP, [id number], LIPID, CIARAN ####[place] [address] [place] [address] [facility] Iron [Mass/Vol] 45 ug/dL Low 50-212 [facility] Comment on above: Order Comment: FASTI NG Y Performed By: #### F E and TIBC, CBC, MG, BMP, [id number], LIPID, CIARAN ####[place] [address] [place] [address] [facility] Total Iron Binding Capacity 330 ug/dL Normal 255-450 [facility] Comment on above: Order Comment: FASTI NG Y Performed By: #### F E and TIBC, CBC, MG, BMP, [id number], LIPID, CIARAN ####[place] [address] [place] [address] [facility] Transferrin [Mass/Vol] 236 mg/dL Normal 203-362 [facility] Comment on above: Order Comment: FASTI NG Y Performed By: #### F E and TIBC, CBC, MG, BMP, [id number], LIPID, CIARAN ####[place] [address] Iron binding capacity [Mass/ volume] in Serum or PlasmaOrdered By: Sushant Cordon on 04-29-2023 Iron binding capacity [Mass/Vol] 330 ug/dL 255-450 [facility] Iron saturation [Mass Fracti on] in Serum or PlasmaOrdered By: Sushant Cordon on 04-29-2023 Iron saturation [Mass fraction] 13.6 % 20-50 [facility] Lipid Panelon 04-29-2023 Cholesterol [Mass/Vol] 143 mg/dL Normal 140-200 [facility] Comment on above: Order Comment: FASTI ARSLAN Y Result Comment: Chol less than 200 mg/dl low risk Chol 201-239 mg/dl borderline risk Chol 240 mg/dl and greater high risk Performed By: #### F E and TIBC, CBC, MG, BMP, [id number], LIPID, CIARAN ####[address] Cholesterol in HDL [Mass/Vol] 57 mg/dL Normal 23-92 [facility] Comment on above: Order Comment: FASTI ARSLAN Y Result Comment: HDL CHOL ATP-III CLASSIFICATION Cardiovascular Risk HDL > or equal to 60 mg/dL LOW HDL < 40 mg/dL HIGH Performed By: #### F E and TIBC, CBC, MG, BMP, [id number], LIPID, CIARAN ####[address] Cholesterol.total/Cho lesterol in HDL [Mass ratio] 2.5 {ratio} Normal <5.0 [facility] Comment on above: Order Comment: FASTI ARSLAN Y Performed By: #### F E and TIBC, CBC, MG, BMP, [id number], LIPID, CIARAN ####[place] [id number] [facility] LDL Cholesterol,Calculate d 80 mg/dL Normal 0-100 [facility] Comment on above: Order Comment: FASTI NG Y Result Comment: LDL ATP III CLASSIFICATION LDL less than 100 mg/dL Optimal LDL 100-129 mg/dL Near or above optimal LDL 130-159 mg/dL Borderline high LDL 160-189 mg/dL High LDL greater than 189 mg/dL Very high Performed By: #### F E and TIBC, CBC, MG, BMP, [id number], LIPID, CIARAN ####[place] [address] Triglyceride w/Reflex 32 mg/dL Normal 0-149 [facility] Comment on above: Order Comment: FASTI NG Y Result Comment: TRIG ATP III CLASSIFICATION TRIG less than 150 mg/dL Normal TRIG 150-199 mg/dL Borderline high TRIG 200-500 mg/dL High TRIG greater than 500 mg/dL Very high Standard traceable to the Center for Disease Conrtrol and Prevention (CDC) test method. Performed By: #### F E and TIBC, CBC, MG, BMP, [id number], LIPID, CIARAN ####[address] VLDL CHOLESTEROL 6 mg/dL Normal [facility] Comment on above: Order Comment: FASTI NG Y Performed By: #### F E and TIBC, CBC, MG, BMP, [id number], LIPID, CIARAN ####[place] [address] [place] [id number] [facility] Magnesiumon 04-29-2023 Magnesium [Mass/Vol] 1.9 mg/dL Normal 1.9-2.7 [facility] Physician Group Comment on above: Order Comment: FASTI NG Y Performed By: #### F E and TIBC, CBC, MG, BMP, [id number], LIPID, CIARAN ####[place] [id number] [facility] Magnesium [Mass/volume] in S jihan or PlasmaOrdered By: Sushant Cordon on 04-29-2023 Magnesium [Mass/Vol] 1.9 mg/dL 1.9-2.7 [facility] No Panel InformationOrdered By: Sushant Cordon on 04-29-2023 Bedside Glucose #[address]/rn [facility] Transferrin [Mass/volume] in Serum or PlasmaOrdered By: Sushant Cordon on 04-29-2023 Transferrin [Mass/Vol] 236 mg/dL 203-362 [facility] Troponin I High Sensitivityo n 04-29-2023 Troponin I High Sensitivity 32.5 pg/mL High 0.0-20.0 [facility] Comment on above: Result Comment: PERF ORMED BY:[address] [place], [place] [phone] MEDICAL DIRECTORAIRAM MAST M.D. Performed By: #### H S TROP ####[address] [address] [facility] Vit. B12/Folate Profileon Cobalamin (Vitamin B12) [Mass/Vol] 626 pg/mL Normal 180-914 [facility] Comment on above: Order Comment: FASTI NG Y Performed By: #### F E and TIBC, CBC, MG, BMP, [id number], LIPID, CIARAN ####[address] [address] [facility] Folate 28.0 ng/mL Normal >5.9 [facility] Comment on above: Order Comment: FASTI NG Y Result Comment: Lucretia te reference range: >5.9 ng/ml The WHO technical consultation on folate and vitamin b12 deficiencies has determined that folate concentrations less than 4 ng/ml are considered deficient.PERFORMED BY:[address] [place]ORDONOdalisHU[place], [place] [phone] MEDICAL DIRECTORAIRAM MAST M.D. Performed By: #### F E and TIBC, CBC, MG, BMP, [id number], LIPID, CIARAN ####[address] [address] [facility] Vitamin B12 ser/plasOrdered By: Sushant Cordon on 04-29-2023 Cobalamin (Vitamin B12) [Mass/Vol] 626 pg/mL 180-914 [facility] A1C with Estimated Average G luon 04-28-2023 Glucose [Mass/Vol] 309 mg/dL Normal [facility] Comment on above: Result Comment: PERF ORMED BY:[place] [address] [address] [place], [place] [phone] MEDICAL DIRECTORAIRAM MAST M.D. Performed By: #### A 1C [facility] eA ####[place] [address] [place] [address] [facility] HbA1c (Bld) [Mass fraction] 12.4 % High 4.3-5.6 [facility] Comment on above: Result Comment: Incr eased risk for diabetes: 5.7 - 6.4 diabetes: >6.4 glycemic control for adults with diabetes: <7.0 Performed By: #### A 1C [facility] eA ####[place] [address] [place] [address] [facility] ABO/Rh Retypeon 04-28-2023 ABO/RH Recheck Result Positive Normal [facility] Comment on above: Result Comment: PERF ORMED BY:[place] [address] [address] [place], [place] [phone] MEDICAL DIRECTORAIRAM MAST M.D. Activated partial thrombopla stin time (aPTT) in platelet poor plasma by coagulation aOrdered By: Vinnie Rivas on 04-28-2023 aPTT Coag (PPP) [Time] 27.8 s 25.1-36.5 [facility] Comment on above: A hematocrit value g reater than 55% may lead to inaccurate results in coagulation testing. Patients having hematocrit values >55% require a special collection tube for coagulation studies. Please contact the laboratory at [phone] for redraw instructions. Alanine aminotransferase [En zymatic activity/volume] in Serum or PlasmaOrdered By: Vinnie Rivas on 04-28-2023 ALT [Catalytic activity/Vol] 34 U/L 7-52 [facility] Albumin [Mass/volume] in Ser um or Plasma by Bromocresol green (BCG) dye binding methoOrdered By: Vinnie Rivas on 04-28-2023 Albumin BCG dye [Mass/Vol] 4.0 g/dL 3.5-5.7 [facility] Alkaline phosphatase [Enzyma tic activity/volume] in Serum or PlasmaOrdered By: Vinnie Rivas on 04-28-2023 ALP [Catalytic activity/Vol] 108 U/L 34-104 [facility] Aspartate aminotransferase [ Enzymatic activity/volume] in Serum or PlasmaOrdered By: Vinnie Rivas on 04-28-2023 AST [Catalytic activity/Vol] 46 U/L 13-39 [facility] Automated urine color determ inationOrdered By: Vinnie Rivas on 04-28-2023 Color (U) Yellow Normal Yellow [facility] Comment on above: Order Comment: Name Collection Type:: Kimble Catheter Performed By: #### U A ####[place] [id number] [place] [address] [facility] B-Type Natriuretic Peptideon 04-28-2023 Natriuretic peptide B (Bld) [Mass/Vol] 665.0 pg/mL High 5-100 [facility] Comment on above: Result Comment: PERF ORMED BY:[address] [place], [place] [phone] MEDICAL DIRECTORAIRAM MAST M.D. Performed By: #### C MP, HS TROP, PTT, PT, CBC, BNP ####[facility] [address] [place] [address] [facility] Basophils Auto (Bld) [#/Vol] Ordered By: Vinnie Rivas on 04-28-2023 Basophils (Bld) [#/Vol] 0.0 10*3/uL 0.0-0.2 [facility] Basophils/100 WBC Auto (Bld) Ordered By: Vinnie Rivas on 04-28-2023 Basophils/100 WBC (Bld) 0.4 % . [facility] Bilirubin Test strip Ql (U)O rdered By: Vinnie Rivas on 04-28-2023 Bilirubin Ql (U) Negative Negative [facility] Bilirubin.total [Mass/volume ] in Serum or PlasmaOrdered By: Vinnie Rivas on 04-28-2023 Bilirubin [Mass/Vol] 0.3 mg/dL 0.3-1.0 [facility] Calcium [Mass/volume] in Ser um or PlasmaOrdered By: Vinnie Rivas on 04-28-2023 Calcium [Mass/Vol] 9.0 mg/dL 8.6-10.3 [facility] Carbon dioxide, total [Moles /volume] in Serum or PlasmaOrdered By: Vinnie Rivas on 04-28-2023 CO2 [Moles/Vol] 30.4 mmol/L 21.0-31.0 [facility] Chloride [Moles/volume] in S jihan or PlasmaOrdered By: Vinnie Rivas on 04-28-2023 Chloride [Moles/Vol] 101 mmol/L 98-107 [facility] Complete Blood Count Auto Di ffon 04-28-2023 Basophils (Bld) [#/Vol] 0.0 10*3/uL Normal 0.0-0.2 [facility] Comment on above: Result Comment: PERF ORMED BY:[address] [place], [place] [phone] MEDICAL DIRECTORAIRAM MAST M.D. Performed By: #### C MP, HS TROP, PTT, PT, CBC, BNP ####[address] Basophils/100 WBC (Bld) 0.4 % Normal . [facility] Comment on above: Performed By: #### C MP, HS TROP, PTT, PT, CBC, BNP ####[address] Eosinophils (Bld) [#/Vol] 0.0 10*3/uL Normal 0.0-0.45 [facility] Comment on above: Performed By: #### C MP, HS TROP, PTT, PT, CBC, BNP ####[address] Eosinophils/100 WBC (Bld) 0.5 % Normal . [facility] Comment on above: Performed By: #### C MP, HS TROP, PTT, PT, CBC, BNP ####[address] Erythrocyte distribution width (RBC) [Ratio] 18.0 % High 12.0-14.8 [facility] Comment on above: Performed By: #### C MP, HS TROP, PTT, PT, CBC, BNP ####[address] Hematocrit (Bld) [Volume fraction] 34.8 % Low 38.8-50.0 [facility] Comment on above: Performed By: #### C MP, HS TROP, PTT, PT, CBC, BNP ####[address] Hemoglobin (Bld) [Mass/Vol] 11.5 g/dL Low 13.0-17.0 [facility] Comment on above: Performed By: #### C MP, HS TROP, PTT, PT, CBC, BNP ####[address] Lymphocytes (Bld) [#/Vol] 1.4 10*3/uL Normal 1.00-4.8 [facility] Comment on above: Performed By: #### C MP, HS TROP, PTT, PT, CBC, BNP ####[address] Lymphocytes/100 WBC (Bld) 14.8 % Normal . [facility] Comment on above: Performed By: #### C MP, HS TROP, PTT, PT, CBC, BNP ####[address] MCH (RBC) [Entitic mass] 28.0 pg Normal 27.5-35.2 [facility] Comment on above: Performed By: #### C MP, HS TROP, PTT, PT, CBC, BNP ####[address] MCV (RBC) [Entitic vol] 84.3 fL Normal 83.5-101 [facility] Comment on above: Performed By: #### C MP, HS TROP, PTT, PT, CBC, BNP ####[address] Mean Corpuscular HGB Conc 33.2 g/dL Normal 32.5-35.6 [facility] Comment on above: Performed By: #### C MP, HS TROP, PTT, PT, CBC, BNP ####[address] Monocytes (Bld) [#/Vol] 0.9 10*3/uL High 0.0-0.8 [facility] Comment on above: Performed By: #### C MP, HS TROP, PTT, PT, CBC, BNP ####[address] Monocytes/100 WBC (Bld) 18.61 % Normal 0.00-20.00 [facility] Comment on above: Performed By: #### C MP, HS TROP, PTT, PT, CBC, BNP ####[address] Monocytes/100 WBC (Bld) 9.3 % Normal . [facility] Comment on above: Performed By: #### C MP, HS TROP, PTT, PT, CBC, BNP ####[address] Neutrophils (Bld) [#/Vol] 7.3 10*3/uL Normal 1.8-7.7 [facility] Comment on above: Performed By: #### C MP, HS TROP, PTT, PT, CBC, BNP ####[address] Neutrophils/100 WBC (Bld) 75.0 % Normal . [facility] Comment on above: Performed By: #### C MP, HS TROP, PTT, PT, CBC, BNP ####[address] NRBC% 0.1 /100{WBC} Normal 0-0.5 [facility] Comment on above: Performed By: #### C MP, HS TROP, PTT, PT, CBC, BNP ####[address] Platelet mean volume (Bld) [Entitic vol] 9.3 fL Normal 6.6-10.1 [facility] Comment on above: Performed By: #### C MP, HS TROP, PTT, PT, CBC, BNP ####[place] [id number] [facility] Platelets (Bld) [#/Vol] 206 10*3/uL Normal 150-450 [facility] Comment on above: Performed By: #### C MP, HS TROP, PTT, PT, CBC, BNP ####[place] [id number] [facility] RBC (Bld) [#/Vol] 4.12 10*6/uL Normal 3.90-5.60 [facility] Comment on above: Performed By: #### C MP, HS TROP, PTT, PT, CBC, BNP ####[address] WBC (Bld) [#/Vol] 9.7 10*3/uL Normal 4.1-10.5 [facility] Comment on above: Performed By: #### C MP, HS TROP, PTT, PT, CBC, BNP ####[address] Comprehensive Metabolic Pane jairo 04-28-2023 Albumin [Mass/Vol] 4.0 g/dL Normal 3.5-5.7 [facility] Comment on above: Performed By: #### C MP, HS TROP, PTT, PT, CBC, BNP ####[address] Albumin/Globulin [Mass ratio] 1.3 {ratio} Normal [facility] Comment on above: Performed By: #### C MP, HS TROP, PTT, PT, CBC, BNP ####[address] ALP [Catalytic activity/Vol] 108 U/L High 34-104 [facility] Comment on above: Performed By: #### C MP, HS TROP, PTT, PT, CBC, BNP ####[address] ALT [Catalytic activity/Vol] 34 U/L Normal 7-52 [facility] Comment on above: Performed By: #### C MP, HS TROP, PTT, PT, CBC, BNP ####[address] Anion gap [Moles/Vol] 9.5 mmol/L Normal 6.0-15.0 [facility] Comment on above: Performed By: #### C MP, HS TROP, PTT, PT, CBC, BNP ####[address] AST [Catalytic activity/Vol] 46 U/L High 13-39 [facility] Comment on above: Performed By: #### C MP, HS TROP, PTT, PT, CBC, BNP ####[address] Bilirubin [Mass/Vol] 0.3 mg/dL Normal 0.3-1.0 [facility] Comment on above: Performed By: #### C MP, HS TROP, PTT, PT, CBC, BNP ####[address] Calcium [Mass/Vol] 9.0 mg/dL Normal 8.6-10.3 [facility] Comment on above: Performed By: #### C MP, HS TROP, PTT, PT, CBC, BNP ####[address] Chloride [Moles/Vol] 101 mmol/L Normal 98-107 [facility] Comment on above: Performed By: #### C MP, HS TROP, PTT, PT, CBC, BNP ####[address] CO2 [Moles/Vol] 30.4 mmol/L Normal 21.0-31.0 [facility] Comment on above: Performed By: #### C MP, HS TROP, PTT, PT, CBC, BNP ####[address] Creatinine [Mass/Vol] 0.71 mg/dL Normal 0.70-1.30 [facility] Comment on above: Performed By: #### C MP, HS TROP, PTT, PT, CBC, BNP ####[address] [address] [facility] Creatinine Clr Calc Pharmacy 60.38 Normal [facility] Comment on above: Result Comment: PERF ORMED BY:[address] [place], [place] [phone] MEDICAL HUMBLE MAST M.D. Performed By: #### C MP, HS TROP, PTT, PT, CBC, BNP ####[place] [id number] [facility] GFR/1.73 sq M.predicted MDRD (S/P/Bld) [Vol rate/Area] mL/min/{1.73_m2} Normal [facility] Comment on above: Performed By: #### C MP, HS TROP, PTT, PT, CBC, BNP ####[place] [id number] [facility] Globulin (S) [Mass/Vol] 3.2 g/dL Normal [facility] Comment on above: Performed By: #### C MP, HS TROP, PTT, PT, CBC, BNP ####[place] [id number] [facility] Glucose [Mass/Vol] 124 mg/dL High 70-100 [facility] Comment on above: Result Comment: [place] Glucose Reference Range is dependent on time and content of last meal. Glucose of more than 200 mg/dL in a nonstressed, ambulatory subject supports the diagnosis of Diabetes Mellitus. ADA recommended reference range Performed By: #### C MP, HS TROP, PTT, PT, CBC, BNP ####[place] [id number] [facility] Potassium [Moles/Vol] 4.9 mmol/L Normal 3.5-5.1 [facility] Comment on above: Performed By: #### C MP, HS TROP, PTT, PT, CBC, BNP ####[place] [id number] [facility] Protein [Mass/Vol] 7.2 g/dL Normal 6.4-8.9 [facility] Comment on above: Performed By: #### C MP, HS TROP, PTT, PT, CBC, BNP ####[facility] Sodium [Moles/Vol] 136 mmol/L Normal 136-145 [facility] Comment on above: Performed By: #### C MP, HS TROP, PTT, PT, CBC, BNP ####[facility] Urea nitrogen [Mass/Vol] 15 mg/dL Normal 7-25 [facility] Comment on above: Performed By: #### C MP, HS TROP, PTT, PT, CBC, BNP ####[facility] Creatinine [Mass/volume] in Serum or PlasmaOrdered By: Vinnie Rivas on 04-28-2023 Creatinine [Mass/Vol] 0.71 mg/dL 0.70-1.30 [facility] ECG 12 lead ECGon 04-28-2023 ECG 12 lead ECG Normal [facility] ECG 12 lead ECG Normal [facility] ECG 12 lead ECG Normal [facility] Eosinophils Auto (Bld) [#/Vo l]Ordered By: Vinnie Rivas on 04-28-2023 Eosinophils (Bld) [#/Vol] 0.0 10*3/uL 0.0-0.45 [facility] Eosinophils/100 WBC Auto (Bl d)Ordered By: Vinnie Rivas on 04-28-2023 Eosinophils/100 WBC (Bld) 0.5 % . [facility] Erythrocyte distribution wid th Auto (RBC) [Ratio]Ordered By: Vinnie Rivas on 04-28-2023 Erythrocyte distribution width (RBC) [Ratio] 18.0 % 12.0-14.8 [facility] Fructosamineon 04-28-2023 Fructosamine 565 umol/L High 0-285 [facility] Comment on above: Result Comment: Publ ished reference interval for apparently healthy subjects between age 20 and 60 is 205 - 285 umol/L and in a poorly controlled diabetic population is 228 - 563 umol/L with a mean of 396 umol/L. Performed at: - [facility] [address] [place], [place] [id number] [place]: Arturo Boles PhD, Phone: [phone] BY:[facility] [place], [place] [phone] MEDICAL DIRECTORAIRAM MAST M.D. Performed By: #### F RU ####[facility] , Fructosamine [Moles/volume] in Serum or PlasmaOrdered By: Sushant Cordon on 04-28-2023 Fructosamine [Moles/Vol] 565 umol/L 0-285 [facility] Comment on above: Published reference interval for apparently healthysubjects between age 20 and 60 is 205 - 285 umol/L and in apoorly controlled diabetic population is 228 - 563 umol/Lwith a mean of 396 umol/L.Performed at: - [facility] [place], [place] [id number] Director: Arturo Boles PhD, Phone: [phone] Globulin Calc (S) [Mass/Vol] Ordered By: Vinnie Rivas on 04-28-2023 Globulin (S) [Mass/Vol] 3.2 g/dL [facility] Glucose Glucometer (BldC) [M ass/Vol]Ordered By: Sushant Cordon on 04-28-2023 Glucose [Mass/Vol] 137 mg/dL [facility] Comment on above: Random Glucose Refer ence Range is dependent on time and content of last meal. Glucose of more than 200 mg/dL in a nonstressed, ambulatory subject supports the diagnosis of Diabetes Mellitus. Glucose Poct Glucometerson 1 Glucose [Mass/Vol] 399 mg/dL Normal [facility] Comment on above: Result Comment: [place] om Glucose Reference Range is dependent on time and content of last meal. Glucose of more than 200 mg/dL in a nonstressed, ambulatory subject supports the diagnosis of Diabetes Mellitus.PERFORMED BY:[facility] [place], [place] [phone] MEDICAL DIRECTORAIRAM MAST M.D. Performed By: #### G LULS ####Point of Care testing, Commemt1 Glu2: Cleaned Meter Normal [facility] Comment on above: Result Comment: PERF ORMED BY:[place] [address] [place], [place] [phone] MEDICAL DIRECTORAIRAM MAST M.D. Performed By: #### G LULS ####Point of Care testing, Glucose [Mass/Vol] 156 mg/dL Normal [facility] Comment on above: Result Comment: [place] om Glucose Reference Range is dependent on time and content of last meal. Glucose of more than 200 mg/dL in a nonstressed, ambulatory subject supports the diagnosis of Diabetes Mellitus. Performed By: #### G LULS ####Point of Care testing, Glucose [Mass/Vol] 137 mg/dL Normal [facility] Comment on above: Result Comment: [place] om Glucose Reference Range is dependent on time and content of last meal. Glucose of more than 200 mg/dL in a nonstressed, ambulatory subject supports the diagnosis of Diabetes Mellitus.PERFORMED BY:[place] [address] [place], [place] [phone] MEDICAL HUMBLE MAST M.D. Performed By: #### G LULS ####Point of Care testing, Commemt1 Glu2: Cleaned Meter Normal [facility] Comment on above: Performed By: #### G LULS ####Point of Care testing, Commemt2 WILL NOTIFY DR/RN Normal [facility] Comment on above: Result Comment: PERF ORMED BY:[place] [address] [place], [place] [phone] MEDICAL DIRECTORAIRAM MAST M.D. Performed By: #### G LULS ####Point of Care testing, Glucose [Mass/Vol] 171 mg/dL Normal [facility] Comment on above: Result Comment: [place] om Glucose Reference Range is dependent on time and content of last meal. Glucose of more than 200 mg/dL in a nonstressed, ambulatory subject supports the diagnosis of Diabetes Mellitus. Performed By: #### G LULS ####Point of Care testing, Glucose [Mass/volume] in Ser um or PlasmaOrdered By: Vinnie Rivas on 04-28-2023 Glucose [Mass/Vol] 124 mg/dL 70-100 [facility] Comment on above: ADA recommended refe [...] from glycated hemoglobin (Bld) [Mass/Vol] 309 mg/dL [facility] Hematocrit Auto (Bld) [Volum e fraction]Ordered By: Vinnie Rivas on 04-28-2023 Hematocrit (Bld) [Volume fraction] 34.8 % 38.8-50.0 [facility] Hemoglobin A1c percentageOrd ered By: Sushant Cordon on 04-28-2023 HbA1c (Bld) [Mass fraction] 12.4 % 4.3-5.6 [facility] Comment on above: Increased risk for d iabetes: 5.7 - 6.4diabetes: >6.4glycemic control for adults with diabetes: <7.0 Hemoglobin [Mass/volume] in BloodOrdered By: Vinnie Rivas on 04-28-2023 Hemoglobin (Bld) [Mass/Vol] 11.5 g/dL 13.0-17.0 [facility] INR in Platelet poor plasma by Coagulation assayOrdered By: Vinnie Rivas on 04-28-2023 INR Coag (PPP) [Relative time] 1.0 {INR} [facility] Comment on above: INR Therapeutic Rang e [...] on 04-28-2023 Ketones (U) [Mass/Vol] Negative Negative [facility] Leukocytes [#/volume] correc robert for nucleated erythrocytes in Blood by Automated counOrdered By: Vinnie Rivas on 04-28-2023 WBC corrected for nucl RBC Auto (Bld) [#/Vol] 9.7 10*3/uL 4.1-10.5 [facility] Lymphocytes Auto (Bld) [#/Vo l]Ordered By: Vinnie Rivas on 04-28-2023 Lymphocytes (Bld) [#/Vol] 1.4 10*3/uL 1.00-4.8 [facility] Lymphocytes/100 WBC Auto (Bl d)Ordered By: Vinnie Rivas on 04-28-2023 Lymphocytes/100 WBC (Bld) 14.8 % . [facility] MCH Auto (RBC) [Entitic mass ]Ordered By: Vinnie Rivas on 04-28-2023 MCH (RBC) [Entitic mass] 28.0 pg 27.5-35.2 [facility] MCHC Auto (RBC) [Mass/Vol]Or dered By: Vinnie Rivas on 04-28-2023 MCHC (RBC) [Mass/Vol] 33.2 g/dL 32.5-35.6 [facility] MCV Auto (RBC) [Entitic vol] Ordered By: Vinnie Rivas on 04-28-2023 MCV (RBC) [Entitic vol] 84.3 fL 83.5-101 [facility] Monocyte distribution width [Entitic volume] in Blood by AutomatedOrdered By: Vinnie Rivas on 04-28-2023 Monocyte distribution width Auto (Bld) [Entitic vol] 18.61 % 0.00-20.00 [facility] Monocytes Auto (Bld) [#/Vol] Ordered By: Vinnie Rivas on 04-28-2023 Monocytes (Bld) [#/Vol] 0.9 10*3/uL 0.0-0.8 [facility] Monocytes/100 WBC Auto (Bld) Ordered By: Vinnie Rivas on 04-28-2023 Monocytes/100 WBC (Bld) 9.3 % . [facility] Natriuretic peptide B [Mass/ Vol]Ordered By: Vinnie Rivas on 04-28-2023 Natriuretic peptide B (Bld) [Mass/Vol] 665.0 pg/mL 5-100 [facility] Neutrophils Auto (Bld) [#/Vo l]Ordered By: Vinnie Rivas on 04-28-2023 Neutrophils (Bld) [#/Vol] 7.3 10*3/uL 1.8-7.7 [facility] Neutrophils/100 WBC Auto (Bl d)Ordered By: Vinnie Rivas on 04-28-2023 Neutrophils/100 WBC (Bld) 75.0 % . [facility] Nitrite Test strip Ql (U)Ord ered By: Vinnie Rivas on 04-28-2023 Nitrite Ql (U) Negative Negative [facility] No Panel InformationOrdered By: Vinnie Rivas on 04-28-2023 Estimated GFR (CKD-EPI) > 60.0 mL/Min [facility] Pharmacy Creatinine Clearance (Chem 60.38 [facility] Nucleated erythrocytes [Pres ence] in Blood by Automated countOrdered By: Vinnie Rivas on 04-28-2023 Nucleated RBC Auto Ql (Bld) 0.1 /100{WBC} 0-0.5 [facility] Partial Thromboplastin Timeo n 04-28-2023 aPTT Coag (Bld) [Time] 27.8 s Normal 25.1-36.5 [facility] Comment on above: Result Comment: A he matocrit value greater than 55% may lead to inaccurate results in coagulation testing. Patients having hematocrit values >55% require a special collection tube for coagulation studies. Please contact the laboratory at [phone] for redraw instructions.PERFORMED BY:[facility] [place], [place] [phone] MEDICAL DIRECTORAIRAM MAST M.D. Performed By: #### C MP, HS TROP, PTT, PT, CBC, BNP ####[facility] [id number] [place] [address] [facility] Platelet mean volume Auto (B ld) [Entitic vol]Ordered By: Vinnie Rivas on 04-28-2023 Platelet mean volume (Bld) [Entitic vol] 9.3 fL 6.6-10.1 [facility] Platelets Auto (Bld) [#/Vol] Ordered By: Vinnie Rivas on 04-28-2023 Platelets (Bld) [#/Vol] 206 10*3/uL 150-450 [facility] Potassium [Moles/volume] in Serum or PlasmaOrdered By: Vinnie Rivas on 04-28-2023 Potassium [Moles/Vol] 4.9 mmol/L 3.5-5.1 [facility] Protein Auto test strip (U) [Mass/Vol]Ordered By: Vinnie Rivas on 04-28-2023 Protein (U) [Mass/Vol] Negative Negative [facility] Protein [Mass/volume] in Ser um or PlasmaOrdered By: Vinnie Rivas on 04-28-2023 Protein [Mass/Vol] 7.2 g/dL 6.4-8.9 [facility] Prothrombin Time INRon 04-28 INR Coag (PPP) [Relative time] 1.0 {INR} Normal [facility] Comment on above: Result Comment: INR Therapeutic [...] MP, HS TROP, PTT, PT, CBC, BNP ####[facility] [id number] PT Coag (PPP) [Time] 11.8 s Normal 9.0-12.9 [facility] Comment on above: Result Comment: A he matocrit value greater than 55% may lead to inaccurate results in coagulation testing. Patients having hematocrit values >55% require a special collection tube for coagulation studies. Please contact the laboratory at [phone] for redraw instructions. Performed By: #### C MP, HS TROP, PTT, PT, CBC, BNP ####[facility] [id number] [facility] Prothrombin time (PT)Ordered By: Vinnie Rivas on 04-28-2023 PT Coag (PPP) [Time] 11.8 s 9.0-12.9 [facility] Comment on above: A hematocrit value g reater than 55% may lead to inaccurate results in coagulation testing. Patients having hematocrit values >55% require a special collection tube for coagulation studies. Please contact the laboratory at [phone] for redraw instructions. RBC Auto (Bld) [#/Vol]Ordere d By: Vinnie Rivas on 04-28-2023 RBC (Bld) [#/Vol] 4.12 10*6/uL 3.90-5.60 [facility] Serum or plasma albumin/glob ulin mass ratioOrdered By: Vinnie Rivas on 04-28-2023 Albumin/Globulin [Mass ratio] 1.3 {ratio} [facility] Serum or plasma anion gap de terminationOrdered By: Vinnie Rivas on 04-28-2023 Anion gap [Moles/Vol] 9.5 mmol/L 6.0-15.0 [facility] Sodium [Moles/volume] in Ser um or PlasmaOrdered By: Vinnie Rivas on 04-28-2023 Sodium [Moles/Vol] 136 mmol/L 136-145 [facility] Specific gravity Auto test s trip (U) [Rel density]Ordered By: Vinnie Rivas on 04-28-2023 Specific gravity (U) [Rel density] 1.009 1.001-1.03 0 [facility] Troponin I High Sensitivityo n 04-28-2023 Troponin I High Sensitivity 38.9 pg/mL High 0.0-20.0 [facility] Comment on above: Result Comment: PERF ORMED BY:[facility] [place], [place] [phone] MEDICAL DIRECTORAIRAM AMST M.D. Performed By: #### H S TROP ####[facility] [id number] [place] [address] [facility] Troponin I High Sensitivity 38.6 pg/mL High 0.0-20.0 [facility] Comment on above: Result Comment: PERF ORMED BY:[address] [place] [place], [place] [phone] MEDICAL DIRECTORAIRAM MAST M.D. Performed By: #### H S TROP ####[address] [address] [facility] Troponin I High Sensitivity 38.3 pg/mL High 0.0-20.0 [facility] Comment on above: Result Comment: PERF ORMED BY:[place] [place] [place], [place] [phone] MEDICAL DIRECTORAIRAM MAST M.D. Performed By: #### H S TROP ####[address] [address] [facility] Troponin I High Sensitivity 35.5 pg/mL High 0.0-20.0 [facility] Comment on above: Result Comment: PERF ORMED BY:[address] [place], [place] [phone] MEDICAL DIRECTORAIRAM MAST M.D. Performed By: #### C MP, HS TROP, PTT, PT, CBC, BNP ####[address] [address] [facility] Troponin I.cardiac [Mass/vol ume] in Serum or Plasma by Detection limit <= 0.01 ng/Ordered By: Vinnie Rivas on 04-28-2023 Troponin I.cardiac DL <= 0.01 ng/mL [Mass/Vol] 38.3 pg/mL 0.0-20.0 [facility] Urea nitrogen [Mass/volume] in Serum or PlasmaOrdered By: Vinnie Rivas on 04-28-2023 Urea nitrogen [Mass/Vol] 15 mg/dL 7-25 [facility] Urinalysison 04-28-2023 Appearance (U) Clear Normal Clear [facility] Comment on above: Order Comment: Name Collection Type:: Kimble Catheter Performed By: #### U A ####[address] [address] [facility] Bilirubin,Urine Negative Normal Negative [facility] Comment on above: Order Comment: Name Collection Type:: Kimble Catheter Performed By: #### U A ####[address] [address] [facility] Glucose Ql (U) Normal Normal Normal [facility] Comment on above: Order Comment: Name Collection Type:: Kimble Catheter Performed By: #### U A ####[address] [address] [facility] Ketones Ql (U) Negative Normal Negative [facility] Comment on above: Order Comment: Name Collection Type:: Kimble Catheter Performed By: #### U A ####[address] [address] [facility] Leukocyte esterase Test strip Ql (U) Negative Normal Negative [facility] Comment on above: Order Comment: Name Collection Type:: Kimble Catheter Performed By: #### U A ####[address] [address] [facility] Nitrite,Urine Negative Normal Negative [facility] Comment on above: Order Comment: Name Collection Type:: Kimble Catheter Performed By: #### U A ####[address] [address] [facility] Occult Blood,Urine Negative Normal Negative [facility] Comment on above: Order Comment: Name Collection Type:: Kimble Catheter Result Comment: PERF ORMED BY:[address] [place], [place] [phone] MEDICAL HUMBLE MAST M.D. Performed By: #### U A ####[address] [address] [facility] Protein,Urine Negative Normal Negative [facility] Comment on above: Order Comment: Name Collection Type:: Kimble Catheter Performed By: #### U A ####[address] [address] [facility] Specificy [place],Urine 1.009 Normal 1.001-1.03 0 [facility] Comment on above: Order Comment: Name Collection Type:: Kimble Catheter Performed By: #### U A ####[facility] [place] [address] [facility] Urobilinogen,Urine Normal Normal Normal [facility] Comment on above: Order Comment: Name Collection Type:: Kimble Catheter Performed By: #### U A ####[address] [place] [address] [facility] Urine clarity by refractomet ry automatedOrdered By: Vinnie Rivas on 04-28-2023 Clarity Refractometry automated (U) Clear Clear [facility] Urine glucose measurement by automated test strip (mass/volume)Ordered By: Vinnie Rivas on 04-28-2023 Glucose Auto test strip (U) [Mass/Vol] Normal mg/dL Normal [facility] Urine hemoglobin detection b y automated test stripOrdered By: Vinnie Rivas on 04-28-2023 Hemoglobin Auto test strip Ql (U) Negative Negative [facility] Urine leukocyte esterase det ection by automated test stripOrdered By: Vinnie Rivas on 04-28-2023 Leukocyte esterase Auto test strip Ql (U) Negative Negative [facility] Urine pH measurement by auto mated test stripOrdered By: Vinnie Rivas on 04-28-2023 pH (U) 6.5 [pH] Normal 5.0-9.0 [facility] Comment on above: Order Comment: Name Collection Type:: Kimble Catheter Performed By: #### U A ####[facility] [place] [address] [facility] Urobilinogen Auto test strip (U) [Mass/Vol]Ordered By: Vinnie Rivas on 04-28-2023 Urobilinogen (U) [Mass/Vol] Normal mg/dL Normal [facility] WBC Auto (Bld) [#/Vol]Ordere d By: Vinnie Rivas on 04-28-2023 WBC (Bld) [#/Vol] 9.7 10*3/uL 4.1-10.5 [facility] XR femur RT 2V*on 04-28-2023 XR femur RT 2V* Normal [facility] Coding Summaryon 04-26-2023 Coding Summary HTMLBase 64 GjgtaqkqBYq2qKl+PGhlYWQ+PE 5KPWZiI99lnRMzbN5eT3JEGZnP GfffQVNIWNwBKtQqsiHqQS7akA NjZXJu IC8+VP2xKBEkDjybbEOtu0P1tB F7W32isn4tCRdyeGG4ZCNkPgZx sgnnc6xnqAp8MUogJcknXzZr LOJwaY50KIM5dN42Qc19yGCxcY Dbh4ctiSb5KlAtOHTsMEO4iNbz VXljo5YjQGCxV78ieKHwy8Y8 IWVjcSoroTXuSvQqqLD6lD8aDF mpylwyu5emubutHvn5lk31rLIc i9L9sLJ7D4MkumG2SPIbzYEc QhjfvGLSkX2rsxcqv0bkzawuCq LqUILcHYa2GAs9MWRaiIgrPyJf OH20HNP1WKUhoeNfZ6TcKKYh oCqwTnS4y2T1Fn0GP2FBWqriZ3 VNTUFSWTwvdGQ+BR65mc37Z3Fc QiuuToa2QNDjYBU5hRX6gA7h OYYgDTkdx1J0zJX8N5SypzRoap 6kk1eaTXMwWJvcI50zdTYek7I2 ZDDygXB4EGMcwLxpGwEvoI86 Oyc+WCUvhHcfs8KxLwnho0lkq7 xkjNt1MpcqNSKcpsNlmMjuNCR5 n6TpAr4xQGTkwPA4pGH6tT0j IaZrUcS6HHjaN916BsFuvLEqVp jfQ00vI3FlyXP+RMPjBwv5QMUm vGvgQC7qE7IpTVXufrkchOWj uLxsUU5xJUBghuyhBVMumA8iYI TeY3g6ClLdWyP7ODkkL2AeXDJd kjrsNv28mA0mAdMdGkS3NYsf X9BrwbE2XSHmfUAvHHbaNKS5G4 6ug4Q2ROCeOSEvRXU1yHD4jC9z bGlnbjogbGVmdDsgdmVydGlj IDqqSWivE473HUBhzVgvYqNvWT luZyBEYXRlOiAgMTAvMTYvMjAy MzwvdGQ+WJQqVIQ8pYnaZJYa bEFoCGizOb6roFvivCfjED2pCC OzrodfHKVqeM8eRENfkXHaoIkp YA1xDTMqnwnob764PmFkOJW3 GDVnjKUvJ0SvxH8cVkZxGBMaHB RvC4YonJSqLLoqZ670SZwyBuX3 CNGeifEtH8VaCPLmxXwnRcM8 y7T5Kn9Zv0OwrzpbG0RjyZSyPf NfCjlkMJr0Z0JuFqhmyBS+PC90 GWYnAI62BSw4CHO5xGrfBBtg UHTwF0TzwR5xPiBxFMIkDVPxMz c+PHRhYmxlIHdpZHRoPScxMDAl XhMjbOmcXV2wPb3tJVAjXMId sExazGYnDvWvn5maZJPkMPxaQF 1qiQlpP3UyeUL8SEIak9b5Wc79 L65sD6YylDA+QUQkwSS0gKM8 cP0wDmRxTsB4VNauX698GiUarN PoMaihb4vtr2nckTh6GvW9QTIo yjBhfKtpHFD6f8WyLx52N46j IHdpZHRoPSIxNSUiIHZhbGlnbj 8ljL7vQt2+LXFkgWM5hLK1eM1l FmJbUxO0HRfrP422KiEcaBYn Sinug5jpg2bfpPc0VkNaLVHppp OkiNezJIE6q8KwZd52A0WnhOhb p0DvLoo9yj26kSStr0C2pEM0 N2DrXADphgwyuJZjqHcvNX8uCB OfckaxFOGynJ3oKCJeC0j8EjMy AcX3KNxiI3IjigJ4QFLirRFf LGQgcSXLxO6tdvljv5jwdfcqFk HjBKBlPXb6ZRl5GFLgdOfkGkLe MES6XeW0QRT8fGIvqW4qqEid xgupzP8yMya+TDZ0wOOeqEGFDF 1lOjwvdGQ+URKeJAQ5fQbgJZdp UDEtjT6aDYXmN4y0SqRfMwY8 VXcqS9DraqR0YYOqfITdYGOfxA SYtA9jhozek0laxhpvRmOdVAFi UXx3WZl5KBIelVymKuFrTEN1 VaU2FAG9jEItzE8wbDcgeulssR 9wOyc+AsfigKodIZP9RZj7S0Zm Btn7MTSmjKgdFC1bfJRsTBty Kt8dePvgqQqaGL5vASLyryjts3 14PyFoa4lzFZGoyECsNQriROV6 G75hm3G4RNEsKPEhKWN4bOC9 aT0qeMwudegufGHivYbiikUwpB mwVBzfLDfiV176HMDeeJdbSrJz MRc9B5QpRle8VZFkaCdfNZ2n gJUiQNtfPr0aqXwysJknJH9eXX Nlsrala239JqDsb8dkYLUmfDUv YEiqNMM7U01pm8Y7HVYhIQAp THS4nJS5oK1cbHfxpesgcRThmT wwjaEahRalVXzkBGhwD849HZSz yGxiLkCiwUu7C8MmTal6IABe jYegMX1htCWyYGjwTq4aqKfwnL dgOZ7pIXHplncxw925YeRrj4mm XNHprOObFWioNSU9P69pu7L4 IKBfMKMeUJF0mRK8jE7fuVeuha ogbGVmdDsgdmVydGljYWwtYWxp L392ULRrvQixZmMoeZvlluXe ZEreCOz6R5MeNhbcoPI+PC90YW FmMC89qXDliEIgo5btfPw0GgMh FWUeCKI3gCvyIIkwn5MwNRFo L13kyBCne4N3CIXqxFfajBBxRj SugDW3nV7pQUxuqapmm5putfxf Rrthp6wrry24tB67N59nRCjb TQZkZBFgPPDbXFZjtEaqxh6mwO 9wIi8+BTZluHK5wVY7xP8uYGCc LwH5OMqeO388PkMusTLwAsip y0fxk4npvId4ZvC6SJVmqlSfiA kaUTR9x0IfCc13J93vXLubZBEd TWKhLMFtAKZcbVcpgi8wpM4y Ii8+UBFrbXF8aFJ3cR1mBjExKa R8BInhA293FvXjzBLpNqwxN44a C7NvjUL+GQXaJyg1UBSbrYve ZB5krONoTVltYc4uIHP9WtLeYc ThNHfoJ4QiJIPfvxjhwimipVE9 WCKjZTLjhO16Ol5ycEqqTTDo qMTYeE9bowtxv7mcvynoTsXtHU NqAVs1CLr3FGPlsVboWnUpQFT0 BkT7YTX5bQDirO7uzAxuwfgc tG4kY3CcHUEihigqRi31kK4nSv LxCrK7NGraVmd+G9GXKe8QNXID RN5QRXlhVnkeuUQ+PHRkIHN0 nNxpWOsoXAUwfZ3tTIFtC6b8Yb BfLiL9KMsdY4DvAVXqfxnzMq67 jK4uHcJyBiD9JWylT4ZjclV9 MRLiiXWcWUjvODF7Z83al1U4EL IiRRAsDAM7uJF9kA4srPavjfoc bGVmdDsgdmVydGljYWwtYWxp U890SRTorHefJoI5SaBpKxN3Ff s4O2HbZqq1TNSldVnfDK6vbYSy NCjdYq4rhOzroDpyKM0nHJKy uzxyJNUdxD4bNLTjsMPzrNqdIC 6lAPEcpxwbs466AbPeDBG9UWRt gNNbF8QzxR7zSuShMAQmSIHb W4IulOTcCNtgW497DAsmLnM4IQ XzgaSzP9OaESPizMddLvB3c3I2 Mu94TnGAKLLlfopqaKS+PHRk AHN1gLwnGCueLWPdiI6hVKMqW9 g1NvWxEqT4AKjcX4AaRGVkrwsj Fg65yF6mKgAkBbC8IMvcY9An pxX0EPWcjLRfXJoqDCB7W99xh2 O4XXSuRXAjSZS2uQJ5aM7maLms bjogbGVmdDsgdmVydGljYWwt SHecO079JZIwoQgdKg3JVQN1I3 FfLxx2ORIlgKwwOU0wqREoYKma Ll4acIljfLhpQV0oJOMdrkvj QIGhwI7pCJLwtAIecNudJX2cTN Izrgkqy299IvYcMIZ5IMSjzWWw R6JtoY6tDaZsSTTkAWTaA8Jh pZSzLGaaB262VKfzYbI6BAWzvs EeG3FcRGOygNsbCaQ8s8H2Qm0I UDwvdGQ+ZD64ad90X4PgSvrn Yek7UZDhHSK8uXX6yM6jHSFlHQ wwk4F7vOE2S1HnchTkwf0ks6mh RKRvMUzyQ95ooKDdm7P8ZGIl uOP8IINjqHswIdNgqD62Zln+PG PfzGkwb6MjVdyxu0dlk7ajoMh9 PzMfAYXelrTpwJqwOIE6e8Wy Ew63R12uLYdqLMDbEZKfUAKeDC OlsCvrin1jkW7gEr1+PGNvbCB3 ePZ4mU6mBvOtZhL7NNurH337 RpWtwINuCidea1ilj2lixXp9Zk EdSJUiacUwwLqvWCZ5l0IbXa09 E6HvdIxvy9NmYui4gr63zHTv a8C1wOG8D9EsNMCuesuisFUpgC guUS3vXAZjcrfjPWBnpU8eMXGv Y8u8BuAmFsL7LQvpO8XeteE1 KVOqrYVmYQTthOFMzU1yoykmv0 jqwvfgQeFqJOAcFRa6YMw8YDBa yUiuIzDjOWW8ZnS3WHX2dEWr xD6huUtdeqhgcH7aMqh+UGh5c2 lqmBQqDV5kiPE5JZ10NZ93rERh x3R6pZY5A3EcUQCnehjyffdh bNH5PKSpRQDviQ46Va3bfJydXp 6zPVEhMVR5NAKwcYIoL4UhkW4q MgUdEMCdPFWdV6TqyXAzZUfu Y364BInlElD8REUczlXjY2ZmAA HurMccRyQ9f6U7Ep4THK51OL00 YM08zTGgl5K9fDI3N3ZtHPYj czcwkfbucRF4CCCgHOJpqF89Dm 4ztFmvBb2eQVGvFSM9BHUrxTIn L1NemQ0eOzKdVVLiEANiT9Yb zNPsRUjwR382CKxmAuD6PMVxku JzU0WfUCJqwFonNhI1o7B5Oo6V Xg87UZ41AC07cPBtt5S6zAQ1 D0PmXDSewhbmiarrwFI4OJJoMW OvgO15Bz7smEzdEd7nPIPtNIW4 BGLraMVpH0PjeG0lMvGeKMDp KLKpR0KilRCeKKnaB641NEwkZy I2DLXopiDoW4KgBYPboUgcIdG2 s8O2Gb5PRVdtzxl6N7AcCskz dHI+KI62NOVpVW91gNAofSFzn8 ggtXu6NwCkABOaIFZ0hVjdADdi e5JcIWEpA00egROft4J8NAKx bGx (more content not included)... Normal [facility] Consent Formson 04-26-2023 Consent Forms [id number]#[id number] Normal [facility] BUN/Creat Ratioon 04-23-2023 eGFR Non AA >60 Invalid Interpretation Code [facility] Comment on above: Performed By: #### 1 [id number] #### [facility] (DEFAULT) [address] [place] [address] eGFR AA >60 Invalid Interpretation Code [facility] Comment on above: Performed By: #### 1 [id number] #### [facility] (DEFAULT) [address] [place] [address] Creatinine [Mass/Vol] 0.69 mg/dL Low 0.90-1.30 [facility] Comment on above: Performed By: #### 1 [id number] #### [facility] (DEFAULT) [address] [place] [address] Urea nitrogen [Mass/Vol] 14 mg/dL Normal 8- [facility] Comment on above: Performed By: #### 1 [id number] #### [facility] (DEFAULT) [address] [place] [address] Urea nitrogen/Creatinine [Mass ratio] 20.2 mg/mg High 4.6-16.2 [facility] Comment on above: Performed By: #### 1 [id number] #### [facility] (DEFAULT) [address] [place] [address] Urogramon 04-23-2023 CT Urogram CLINICAL HISTORY: [...] MD 04/23/23 3:17 pm Technologist: DARYA MANN [facility] Provider Orderson 04-21-2023 Provider Orders [id number]#[id number] F [facility] Provider Orderson 03-16-2023 Provider Orders [id number]#[id number] Normal [facility] UA RANDOMon 06-05-2022 Bilirubin Ql (U) Negative Normal NEGATIVE [facility] Comment on above: Performed By: #### C MP, LIPID #### [facility] [address] [place] [address] Dr. Kylee Bunch Clarity (U) CLEAR Normal CLEAR [facility] Comment on above: Performed By: #### C MP, LIPID #### [facility] [address] [address] [address] Kylee Bunch Color (U) YELLOW Normal YELLOW [facility] Comment on above: Performed By: #### C MP, LIPID #### [facility] [address] [place] [address] Dr. Kylee Bunch Glucose Ql (U) Negative Normal NEGATIVE [facility] Comment on above: Performed By: #### C MP, LIPID #### [facility] [address] [place] [address] Dr. Kylee Bunch Hemoglobin Ql (U) TRACE-INTACT Abnormal NEGATIVE [facility] Comment on above: Performed By: #### C MP, LIPID #### [facility] [address] [place] [address] Dr. Kylee Bunch Ketones Ql (U) TRACE Abnormal NEGATIVE [facility] Comment on above: Performed By: #### C MP, LIPID #### [facility] [address] [place] [address] Dr. Kylee Bunch LEUKOCYTES Negative Normal NEGATIVE [facility] Comment on above: Performed By: #### C MP, LIPID #### [facility] [address] [place] [address] Dr. Kylee Bunch Nitrite Ql (U) Negative Normal NEGATIVE [facility] Comment on above: Performed By: #### C MP, LIPID #### [facility] [address] [place] [address] Dr. Kylee Bunch pH (U) 5.5 [pH] Normal 5-9 [facility] Comment on above: Performed By: #### C MP, LIPID #### [facility] [address] [place] [address] Dr. Kylee Bunch SPEC GRAVITY >=1.030 Abnormal 1.005-<=1. 025 [facility] Comment on above: Performed By: #### C MP, LIPID #### [facility] [address] [place] [address] Dr. Kylee Bunch UA PROTEIN Negative Normal NEGATIVE/ TRACE [facility] Comment on above: Performed By: #### C MP, LIPID #### [facility] [address] [place] [address] Dr. Kylee Bunch Urobilinogen Qn (U) 0.2 {Gemini'U}/dL Normal 0.2 - 1. 0 [facility] Comment on above: Performed By: #### C MP, LIPID #### [facility] [address] [place] [address] Dr. Kylee Bunch CBC AUTO DIFFon 05-14-2022 BASO # 0.0 103/ul Normal 0.0-0.1 [facility] Comment on above: Performed By: #### C MP, LIPID #### [facility] [address] [place] [address] Dr. Kylee Bunch Basophils/100 WBC (Bld) 0.7 % Normal 0.2-2.0 [facility] Comment on above: Performed By: #### C MP, LIPID #### [facility] [address] [place] [address] Dr. Kylee Bunch EO # 0.1 103/ul Normal 0.0-0.7 [facility] Comment on above: Performed By: #### C MP, LIPID #### [facility] [address] [place] [address] Dr. Kylee Bunch Eosinophils/100 WBC (Bld) 2.6 % Normal 0.9-7.0 [facility] Comment on above: Performed By: #### C MP, LIPID #### [facility] [address] [place] [address] Dr. Kylee Bunch Erythrocyte distribution width (RBC) [Ratio] 17.2 % Critically high 11.0-15.0 [facility] Comment on above: Performed By: #### C MP, LIPID #### [facility] [address] [place] [address] Dr. Kylee Bunch Hematocrit (Bld) [Volume fraction] 36.1 % Critically low 42.0-54.0 [facility] Comment on above: Performed By: #### C MP, LIPID #### [facility] [address] [place] [address] Dr. Kylee Bunch Hemoglobin (Bld) [Mass/Vol] 12.1 g/dL Critically low 14.0-18.0 [facility] Comment on above: Performed By: #### C MP, LIPID #### [facility] [address] [place] [address] Dr. Kylee Bunch IG # 0.01 10e3/ul Normal 0.00-0.03 [facility] Comment on above: Performed By: #### C MP, LIPID #### [facility] [address] [place] [address] Dr. Kylee Bunch IG % 0.2 % Normal 0.0-0.5 [facility] Comment on above: Performed By: #### C MP, LIPID #### [facility] [address] [place] [address] Dr. Kylee Bunch LYMPH # 1.7 103/ul Normal 1.2-3.8 [facility] Comment on above: Performed By: #### C MP, LIPID #### [facility] [address] [place] [address] Dr. Kylee Bunch Lymphocytes/100 WBC (Bld) 30.9 % Normal 20.5-60.0 [facility] Comment on above: Performed By: #### C MP, LIPID #### [facility] [address] [place] [address] Dr. Kylee Bunch MANUAL DIFF REQ NO Normal [facility] Comment on above: Performed By: #### C MP, LIPID #### [facility] [address] [place] [address] Dr. Kylee Bunch MCH (RBC) [Entitic mass] 27.4 pg Normal 25.9-34.0 [facility] Comment on above: Performed By: #### C MP, LIPID #### [facility] [address] [address] [address] Kylee Bunch MCHC (RBC) [Mass/Vol] 33.5 g/dL Normal 29.9-35.2 [facility] Comment on above: Performed By: #### C MP, LIPID #### [facility] [address] [place] [address] Dr. Kylee Bunch MCV (RBC) [Entitic vol] 81.9 fL Normal 80.0-94.0 [facility] Comment on above: Performed By: #### C MP, LIPID #### [facility] [address] [place] [address] Dr. Kylee Bunch MONO # 0.7 103/ul Normal 0.3-0.8 [facility] Comment on above: Performed By: #### C MP, LIPID #### [facility] [address] [place] [address] Dr. Kylee Bunch Monocytes/100 WBC (Bld) 12.9 % Critically high 1.7-12.0 [facility] Comment on above: Performed By: #### C MP, LIPID #### [facility] [address] [place] [address] Dr. Kylee Bunch NEUT # 2.9 103/ul Normal 1.4-6.5 [facility] Comment on above: Performed By: #### C MP, LIPID #### [facility] [address] [place] [address] Dr. Kylee Bunch Neutrophils/100 WBC (Bld) 52.7 % Normal 43.0-75.0 [facility] Comment on above: Performed By: #### C MP, LIPID #### [facility] [address] [place] [address] Dr. Kylee Bunch PLT 213 103/ul Normal 150-450 [facility] Comment on above: Performed By: #### C MP, LIPID #### [facility] [address] [place] [address] Dr. Kylee Bunch RBC 4.41 106/ul Critically low 4.70-6.10 [facility] Comment on above: Performed By: #### C MP, LIPID #### [facility] [address] [address] [address] Kylee Bunch WBC 5.4 103/ul Normal 4.0-11.0 [facility] Comment on above: Performed By: #### C MP, LIPID #### [facility] [address] [address] [address] Kylee Bunch LIPID PROFILEon 05-14-2022 CHOL-HDL RATIO NORM SEE BELOW Normal [facility] [facility] Comment on above: Result Comment: 3.3 - 4.4 LOW RISK 4.4 - 7.1 AVERAGE RISK 7.1 - 11.0 MODERATE RISK >11.0 HIGH RISK Performed By: #### C MP, LIPID #### [facility] [address] [place] [address] Dr. Kylee Bunch Cholesterol [Mass/Vol] 166 mg/dL Normal <=200 [facility] Comment on above: Performed By: #### C MP, LIPID #### [facility] [address] [place] [address] Dr. Kylee Bunch Cholesterol in HDL [Mass/Vol] 71 mg/dL Critically high 40-60 [facility] Comment on above: Performed By: #### C MP, LIPID #### [facility] [address] [place] [address] Dr. Kylee Bunch Cholesterol in LDL [Mass/Vol] 84.8 mg/dL Normal [facility] Comment on above: Performed By: #### C MP, LIPID #### [facility] [address] [address] [address] Kylee Bunch Cholesterol.total/Cho lesterol in HDL [Mass ratio] 2.3 {ratio} Normal [facility] Comment on above: Performed By: #### C MP, LIPID #### [facility] [address] [place] [address] Dr. Kylee Bunch HDL NORMAL > or = 60 mg/dl - LO W CARDIOVASCULAR RISK <40 mg/dl - HIGH CARDIOVASCULAR RISK Normal [facility] Comment on above: Performed By: #### C MP, LIPID #### [facility] [address] [place] [address] Dr. Kylee Bunch LDL CALC NORMAL SEE BELOW Normal [facility] Comment on above: Result Comment: <100 mg/dl OPTIMAL 100 - 129 mg/dl NEAR OR ABOVE OPTIMAL 130 - 159 mg/dl BORDERLINE HIGH 160 - 189 mg/dl HIGH >190 mg/dl VERY HIGH Performed By: #### C MP, LIPID #### [facility] [address] [place] [address] Dr. Kylee Bunch Triglyceride [Mass/Vol] 51 mg/dL Normal <=150 [facility] Comment on above: Performed By: #### C MP, LIPID #### [facility] [address] [address] [address] Kylee Bunch VLDL CALC 10.2 mg/dL Normal [facility] Comment on above: Performed By: #### C MP, LIPID #### [facility] [address] [place] [address] Dr. Kylee Bunch MICROALBUMIN, RAND URon 11-0 mALB 3.0 mg/L Normal <=30.0 [facility] Comment on above: Performed By: #### M ALBR #### [facility] [address] [place] [address] Dr. Kylee Bunch PROF 14(COMP METB)on 022 Albumin [Mass/Vol] 3.5 g/dL Normal 3.4-5.0 [facility] Comment on above: Performed By: #### C MP, LIPID #### [facility] [address] [place] [address] Dr. Kylee Bunch Albumin/Globulin [Mass ratio] 1.0 {ratio} Normal [facility] Comment on above: Performed By: #### C MP, LIPID #### [facility] [address] [address] [address] Kylee Bunch ALP [Catalytic activity/Vol] 97 U/L Normal 46-116 [facility] Comment on above: Performed By: #### C MP, LIPID #### [facility] [address] [address] [address] Kylee Bunch ALT [Catalytic activity/Vol] 29 U/L Normal 16-63 [facility] Comment on above: Performed By: #### C MP, LIPID #### [facility] [address] [address] [address] Kylee Bunch Anion gap [Moles/Vol] 6.7 mmol/L Normal [facility] Comment on above: Performed By: #### C MP, LIPID #### [facility] [address] [address] [address] Kylee Bunch AST [Catalytic activity/Vol] 28 U/L Normal 15-37 [facility] Comment on above: Performed By: #### C MP, LIPID #### [facility] [address] [address] [address] Kylee Bunch Bilirubin [Mass/Vol] 0.4 mg/dL Normal 0.2-1.0 [facility] Comment on above: Performed By: #### C MP, LIPID #### [facility] [address] [address] [address] Kylee Bunch Calcium [Mass/Vol] 8.9 mg/dL Normal 8.5-10.1 [facility] Comment on above: Performed By: #### C MP, LIPID #### [facility] [address] [address] [address] Kylee Bunch Chloride [Moles/Vol] 99 mmol/L Normal 98-107 [facility] Comment on above: Performed By: #### C MP, LIPID #### [facility] [address] [address] [address] Kylee Bunch CO2 [Moles/Vol] 33.4 mmol/L Critically high 21.0-32.0 [facility] Comment on above: Performed By: #### C MP, LIPID #### [facility] [address] [address] [address] Kylee Bunch Creatinine [Mass/Vol] 0.80 mg/dL Normal 0.70-1.30 [facility] Comment on above: Performed By: #### C MP, LIPID #### [facility] [address] [address] [address] Kylee Bunch EGFR-AF SERBIAN >60 Normal >=60 [facility] Comment on above: Performed By: #### C MP, LIPID #### [facility] [address] [address] [address] Kylee Bunch EGFR-NON AF SERBIAN >60 Normal >=60 [facility] Comment on above: Performed By: #### C MP, LIPID #### [facility] [address] [address] [address] Kylee Bunch Globulin (S) [Mass/Vol] 3.4 g/dL Normal [facility] Comment on above: Performed By: #### C MP, LIPID #### [facility] [address] [address] [address] Kylee Bunch Glucose [Mass/Vol] 188 mg/dL Critically high 74-106 [facility] Comment on above: Performed By: #### C MP, LIPID #### [facility] [address] [place] [address] Dr. Kylee Bunch Potassium [Moles/Vol] 4.1 mmol/L Normal 3.5-5.1 [facility] Comment on above: Performed By: #### C MP, LIPID #### [facility] [address] [address] [address] Kylee Bunch Protein [Mass/Vol] 6.9 g/dL Normal 6.4-8.2 [facility] Comment on above: Performed By: #### C MP, LIPID #### [facility] [address] [address] [address] Kylee Bunch Sodium [Moles/Vol] 135 mmol/L Critically low 136-145 [facility] Comment on above: Performed By: #### C MP, LIPID #### [facility] [address] [address] [address] Kylee Bunch Urea nitrogen [Mass/Vol] 15.0 mg/dL Normal 7.0-18.0 [facility] Comment on above: Performed By: #### C MP, LIPID #### [facility] [address] [address] [address] Kylee Bunch Urea nitrogen/Creatinine [Mass ratio] 18.8 mg/mg Normal [facility] Comment on above: Performed By: #### C MP, LIPID #### [facility] [address] [place] [address] Dr. Kylee Bunch UA RANDOM W/MICROSCOPICon BACTERIA NONE SEEN Normal NONE SEEN [facility] Comment on above: Performed By: #### C MP, LIPID #### [facility] [address] [place] [address] Dr. Kylee Bunch Bilirubin Ql (U) Negative Normal NEGATIVE [facility] Comment on above: Performed By: #### C MP, LIPID #### [facility] [address] [place] [address] Dr. Kylee Bunch CAST NONE SEEN Normal NONE SEEN [facility] Comment on above: Performed By: #### C MP, LIPID #### [facility] [address] [place] [address] Dr. Kylee Bunch Clarity (U) CLEAR Normal CLEAR [facility] Comment on above: Performed By: #### C MP, LIPID #### [facility] [address] [place] [address] Dr. Kylee Bunch Color (U) LT. YELLOW Normal YELLOW [facility] Comment on above: Performed By: #### C MP, LIPID #### [facility] [address] [place] [address] Dr. Kylee Bunch Crystals LM Nom (Urine sed) NONE SEEN Normal NONE SEEN [facility] Comment on above: Performed By: #### C MP, LIPID #### [facility] [address] [place] [address] Dr. Kylee Bunch Epithelial cells LM Ql (Urine sed) FEW Abnormal NONE SEEN /RARE [facility] Comment on above: Performed By: #### C MP, LIPID #### [facility] [address] [place] [address] Dr. Kyele Bunch Glucose Ql (U) Negative Normal NEGATIVE [facility] Comment on above: Performed By: #### C MP, LIPID #### [facility] [address] [place] [address] Dr. Kylee Bunch Hemoglobin Ql (U) TRACE-LYSED Abnormal NEGATIVE [facility] Comment on above: Performed By: #### C MP, LIPID #### [facility] [address] [place] [address] Dr. Kylee Bunch Ketones Ql (U) Negative Normal NEGATIVE [facility] Comment on above: Performed By: #### C MP, LIPID #### [facility] [address] [place] [address] Dr. Kylee Bunch LEUKOCYTES Negative Normal NEGATIVE [facility] Comment on above: Performed By: #### C MP, LIPID #### [facility] [address] [place] [address] Dr. Kylee Bunch MUCOUS NONE SEEN Normal NONE SEEN [facility] Comment on above: Performed By: #### C MP, LIPID #### [facility] [address] [place] [address] Dr. Kylee Bunch Nitrite Ql (U) Negative Normal NEGATIVE [facility] Comment on above: Performed By: #### C MP, LIPID #### [facility] [address] [place] [address] Dr. Kylee Bunch pH (U) 6.0 [pH] Normal 5-9 [facility] Comment on above: Performed By: #### C MP, LIPID #### [facility] [address] [place] [address] Dr. Kylee Bunch RBC 2-5 Abnormal 0-2 [facility] Comment on above: Performed By: #### C MP, LIPID #### [facility] [address] [place] [address] Dr. Kylee Bunch SPEC GRAVITY 1.020 Normal 1.005-<=1. 025 [facility] Comment on above: Performed By: #### C MP, LIPID #### [facility] [address] [place] [address] Dr. Kylee Bunch UA PROTEIN Negative Normal NEGATIVE/ TRACE [facility] Comment on above: Performed By: #### C MP, LIPID #### [facility] [address] [place] [address] Dr. Kylee Bunch Urobilinogen Qn (U) 0.2 {Gemini'U}/dL Normal 0.2 - 1. 0 [facility] Comment on above: Performed By: #### C MP, LIPID #### [facility] [address] [place], [place] [address] Dr. Kylee Bunch WBC NONE SEEN Normal NONE SEEN [facility] Comment on above: Performed By: #### C MP, LIPID #### [facility] [address] [place], [place] [address] Dr. Kylee Bunch Basic Metab w/rfx MGon 01-07 (cont.) Normal [facility] Comment on above: Result Comment: Aver age GFR for 70 or more years old: 75 mL/min/1.73sq m Chronic Kidney Disease: <60 mL/min/1.73sq m Kidney failure: <15 mL/min/1.73sq m eGFR calculated using average adult body mass. Additional eGFR calculator available at: http://www.[employer]/multiple_crcl_2012.htm Performed By: #### C DP, MELVIN, BMPX, MG, IPF #### [facility] [employer] [address] [place] [id number] [place]: Francisco J Fonseca MD Anion gap [Moles/Vol] 9 mmol/L Normal 9-17 [facility] Comment on above: Performed By: #### C DP, MELVIN, BMPX, MG, IPF #### [facility] [employer] [address] [place] [id number] [place]: Francisco J Fonseca MD Calcium [Mass/Vol] 7.8 mg/dL Low 8.6-10.4 [facility] Comment on above: Performed By: #### C DP, MELVIN, BMPX, MG, IPF #### [facility] [employer] [address] [place] [id number] [place]: Francisco J Fonseca MD Chloride [Moles/Vol] 102 mmol/L Normal 98-107 [facility] Comment on above: Performed By: #### C DP, MELVIN, BMPX, MG, IPF #### [facility] [employer] [address] [place] [id number] [place]: Francisco J Fonseca MD CO2 [Moles/Vol] 24 mmol/L Normal 20-31 [facility] Comment on above: Performed By: #### C DP, MELVIN, BMPX, MG, IPF #### [facility] [address] [place] [phone] [place]: Francisco J Fonseca MD Creatinine [Mass/Vol] 0.49 mg/dL Low 0.70-1.20 [facility] Comment on above: Performed By: #### C DP, MELVIN, BMPX, MG, IPF #### [facility] [employer] [address] [place] [phone] [place]: Francisco J Fonseca MD GFR, Amer >60 Normal >[address] [facility] Comment on above: Performed By: #### C DP, MELVIN, BMPX, MG, IPF #### [facility] [employer] [address] [place] [address] [place]: Francisco J Fonseca MD GFR,non Amer >60 Normal >60 [facility] Comment on above: Performed By: #### C DP, MELVIN, BMPX, MG, IPF #### [facility] [employer] [address] [place] [address] [place]: Francisco J Fonseca MD Glucose [Mass/Vol] 79 mg/dL Normal 70-99 [facility] Comment on above: Performed By: #### C DP, MELVIN, BMPX, MG, IPF #### [facility] [address] [place] [address] [place]: Francisco J Fonseca MD Potassium [Moles/Vol] 3.5 mmol/L Low 3.7-5.3 [facility] Comment on above: Performed By: #### C DP, MELVIN, BMPX, MG, IPF #### [facility] [employer] [address] [place] [phone] [place]: Francisco J Fonseca MD Sodium [Moles/Vol] 135 mmol/L Normal 135-144 [facility] Comment on above: Performed By: #### C DP, MELVIN, BMPX, MG, IPF #### [address] [address] [place]: Francisco J Fonseca MD Urea nitrogen [Mass/Vol] 7 mg/dL Low 8-23 [facility] Comment on above: Performed By: #### C DP, MELVIN, BMPX, MG, IPF #### [address] [address] [place]: Francisco J Fonseca MD CBC with Diffon 01-07-2022 Abs. Basophil 0.00 k/uL Normal 0.0-0.2 [facility] Comment on above: Performed By: #### C DP #### [place] [address] [place]: Francisco J Fonseca MD Abs.Imm.Granulocyte 0.00 k/uL Normal 0.00-0.30 [facility] Comment on above: Performed By: #### C DP #### [address] [address] [place]: Francisco J Fonseca MD Abs.Neutrophil (Seg) 8.33 k/uL High 1.8-7.7 [facility] Comment on above: Performed By: #### C DP #### [address] [address] [place]: Francisco J Fonseca MD Eosinophils (Bld) [#/Vol] 0.11 10*3/uL Normal 0.0-0.4 [facility] Comment on above: Performed By: #### C DP #### [address] [address] [place]: Francisco J Fonseca MD Lymphocytes (Bld) [#/Vol] 1.22 10*3/uL Normal 1.0-4.8 [facility] Comment on above: Performed By: #### C DP #### [address] [address] [place]: Francisco J Fonseca MD Monocytes (Bld) [#/Vol] 1.44 10*3/uL High 0.1-0.8 [facility] Comment on above: Performed By: #### C DP #### [address] [address] [place]: Francisco J Fonseca MD Neutrophil (Seg) 75 % High 36-[address] [facility] Comment on above: Performed By: #### C DP #### [address] [address] [place]: Francisco J Fonseca MD NRBC Automated 0.0 per 100 WBC Normal 0.0 [facility] Comment on above: Performed By: #### C DP #### [address] [address] [place]: Francisco J Fonseca MD WBC (Bld) [#/Vol] 11.1 10*3/uL Normal 3.5-11.3 [facility] Comment on above: Performed By: #### C DP #### [address] [address] [place]: Francisco J Fonseca MD Basophils/100 WBC (Bld) 0 % Normal 0-2 [facility] Comment on above: Performed By: #### C DP #### [address] [address] [place]: Francisco J Fonseca MD Eosinophils/100 WBC (Bld) 1 % Normal 1-4 [facility] Comment on above: Performed By: #### C DP #### [address] [address] [place]: Francisco J Fonseca MD Immature granulocytes/100 WBC (Bld) 0 % Normal 0 [facility] Comment on above: Performed By: #### C DP #### [address] [address] [place]: Francisco J Fonseca MD Lymphocytes/100 WBC (Bld) 11 % Low 24-44 [facility] Comment on above: Performed By: #### C DP #### [address] [address] [place]: Francisco J Fonseca MD Monocytes/100 WBC (Bld) 13 % High 1-7 [facility] Comment on above: Performed By: #### C DP #### [address] [address] [place]: Francisco J Fonseca MD Morphology Walter (Bld) [Interp] ANISOCYTOSIS PRESENT Normal [facility] Comment on above: Result Comment: MICR OCYTOSIS PRESENT 1+ TARGET CELLS 1+ ACANTHOCYTES Performed By: #### C DP #### [place] [address] [place]: Francisco J Fonseca MD Erythrocyte distribution width (RBC) [Ratio] 17.3 % High 11.8-14.4 [facility] Comment on above: Performed By: #### C DP #### [place] [address] [place]: Francisco J Fonseca MD Hematocrit (Bld) [Volume fraction] 36.6 % Low 40.7-50.3 [facility] Comment on above: Performed By: #### C DP #### [address] [address] [place]: Francisco J Fonseca MD Hemoglobin (Bld) [Mass/Vol] 13.0 g/dL Normal 13.0-17.0 [facility] Comment on above: Performed By: #### C DP #### [address] [address] [place]: Francisco J Fonseca MD MCH (RBC) [Entitic mass] 26.5 pg Normal 25.2-33.5 [facility] Comment on above: Performed By: #### C DP #### [address] [address] [place]: Francisco J Fonseca MD MCHC (RBC) [Mass/Vol] 35.5 g/dL High 28.4-34.8 [facility] Comment on above: Performed By: #### C DP #### [address] [address] [place]: Francisco J Fonseca MD MCV (RBC) [Entitic vol] 74.5 fL Low 82.6-102.9 [facility] Comment on above: Performed By: #### C DP #### [address] [address] [place]: Francisco J Fonseca MD Platelet Count See Reflexed IPF Result Normal 138-453 [facility] Comment on above: Performed By: #### C DP #### [address] [address] [place]: Francisco J Fonseca MD RBC (Bld) [#/Vol] 4.91 10*6/uL Normal 4.21-5.77 [facility] Comment on above: Performed By: #### C DP #### [address] [address] [place]: Francisco J Fonseca MD Laboratory - Chemistry and C hemistry - challengeon 01-07-2022 Magnesium [Mass/Vol] 1.5 mg/dL Low 1.6 - 2 .6 mg/dL [facility] Anion gap [Moles/Vol] 9 mmol/L 9 - 17 mmol/L [facility] Calcium [Mass/Vol] 7.8 mg/dL Low 8.6 - 10. 4 mg/dL [facility] Chloride [Moles/Vol] 102 mmol/L 98 - 10 7 mmol/L [facility] CO2 [Moles/Vol] 24 mmol/L 20 - 31 mmol/L [facility] Creatinine [Mass/Vol] 0.49 mg/dL Low 0.70 - 1.20 mg/dL [facility] GFR/1.73 sq M.predicted MDRD (S/P/Bld) [Vol rate/Area] [facility] Comment on above: Average GFR for 70 o r more years old: 75 mL/min/1.73sq m Chronic Kidney Disease: <60 mL/min/1.73sq m Kidney failure: <15 mL/min/1.73sq m eGFR calculated using average adult body mass. Additional eGFR calculator available at: http://www.[employer]/multiple_crcl_2012.htm Glucose [Mass/Vol] 79 mg/dL 70 - 99 mg/dL [facility] Phosphate [Mass/Vol] 2.3 mg/dL Low 2.5 - 4 .5 mg/dL [facility] Potassium [Moles/Vol] 3.5 mmol/L Low 3.7 - 5.3 mmol/L [facility] Sodium [Moles/Vol] 135 mmol/L 135 - 144 mmol/L [facility] Urea nitrogen (BldV) [Mass/Vol] 7 mg/dL Low 8 - 23 mg/dL [facility] Laboratory - Hematology and Cell countson 01-07-2022 Basophils (Bld) [#/Vol] 0.00 10*3/uL [facility] Hematocrit (Bld) [Volume fraction] 36.6 % Low 40.7 - 50.3 % [facility] Hemoglobin (Bld) [Mass/Vol] 13.0 g/dL 13.0 - 17.0 g/dL [facility] MCH (RBC) [Entitic mass] 26.5 pg 25.2 - 33.5 pg [facility] MCHC (RBC) [Mass/Vol] 35.5 g/dL High 28.4 - 34.8 g/dL [facility] MCV (RBC) [Entitic vol] 74.5 fL Low 82.6 - 102.9 fL [facility] Morphology Walter (Bld) [Interp] MICROCYTOSIS PRESENT [facility] Morphology Walter (Bld) [Interp] 1+ TARGET CELLS [facility] [employer] Morphology Walter (Bld) [Interp] 1+ ACANTHOCYTES [facility] Platelet distribution width (Bld) [Ratio] 17.3 % High 11.8 - 14.4 % [facility] Platelets (Bld) [#/Vol] See Reflexed IPF Result [facility] RBC (Bld) [#/Vol] 4.91 10*6/uL 4.21 - 5.77 m/uL [facility] Segmented neutrophils/100 WBC (Bld) 75 % High 36 - 66 % [facility] WBC (Bld) [#/Vol] 11.1 10*3/uL [facility] [employer] [facility] Magnesiumon 01-07-2022 Magnesium [Mass/Vol] 1.5 mg/dL Low 1.6-2.6 [facility] Comment on above: Performed By: #### C DP #### [address] [place] [address] [place]: Francisco J Fonseca MD No Panel Informationon 01-07 Absolute Eos # 0.11 [facility] [employer] Absolute Immature Granulocyte 0.00 [facility] Absolute Lymph # 1.[address] Absolute [place] # 1.44 High [facility] Interpretation and review of laboratory results Abnormal [facility] NRBC Automated 0.0 0.0 per 100 WBC [facility] Segs Absolute 8.33 High [facility] Platelet, Fluorescence 230 [facility] Comment on above: ORDERED BY LAB Platelet, Immature Fraction 10.1 % 1.1 - 10.3 % [facility] Comment on above: ORDERED BY LAB [facility] Interpretation and review of laboratory results Abnormal [facility] GFR >60 >60 mL/min [facility] GFR Non- >60 >60 mL/min [facility] Interpretation and review of laboratory results Abnormal [facility] PLT, Immature Fract.on 01-07 Platelet, Fluoresc. 230 k/uL Normal 138-453 [facility] Comment on above: Result Comment: ORDE RED BY LAB Performed By: #### C DP #### [facility] [employer] [address] [place] [address] [phone] [place]: Francisco J Fonseca MD PLT, Immature Fract. 10.1 % Normal 1.1-10.3 [facility] Comment on above: Result Comment: ORDE RED BY LAB Performed By: #### C DP #### [address] [id number] [place]: Francisco J Fonseca MD Phosphorus, Inorg.on 022 Phosphorus, Inorg. 2.3 mg/dL Low 2.5-4.5 [facility] Comment on above: Performed By: #### C DP, MELVIN, BMPX, MG, IPF #### [address] [phone] [place]: Francisco J Fonseca MD Basic Metab w/rfx MGon 01-06 (cont.) Normal [facility] Comment on above: Result Comment: Aver age GFR for 70 or more years old: 75 mL/min/1.73sq m Chronic Kidney Disease: <60 mL/min/1.73sq m Kidney failure: <15 mL/min/1.73sq m eGFR calculated using average adult body mass. Additional eGFR calculator available at: http://www.[employer].com/multiple_crcl_2012.htm Performed By: #### C DP, MELVIN, BMPX, IPF #### [facility] [employer] [address] [place] [address] [id number] [employer] [place]: Francisco J Fonseca MD Anion gap [Moles/Vol] 11 mmol/L Normal 9-17 [facility] Comment on above: Performed By: #### C DP, MELVIN, BMPX, IPF #### [facility] [employer] [address] [place] [address] [place]: Francisco J Fonseca MD Calcium [Mass/Vol] 7.7 mg/dL Low 8.6-10.4 [facility] Comment on above: Performed By: #### C DP, MELVIN, BMPX, IPF #### [facility] [address] [place] [address] [place]: Francisco J Fonseca MD Chloride [Moles/Vol] 99 mmol/L Normal 98-107 [facility] Comment on above: Performed By: #### C DP, MELVIN, BMPX, IPF #### [facility] [employer] [address] [place] [address] [employer] [place]: Francisco J Fonseca MD CO2 [Moles/Vol] 23 mmol/L Normal 20-31 [facility] Comment on above: Performed By: #### C DP, MELVIN, BMPX, IPF #### [facility] [employer] [address] [place] [address] 14789 [employer] [place]: Francisco J Fonseca MD Creatinine [Mass/Vol] 0.50 mg/dL Low 0.70-1.20 [facility] Comment on above: Performed By: #### C DP, MELVIN, BMPX, IPF #### [facility] [address] [place] [address] 12634 [employer] [place]: Francisco J Fonseca MD GFR, Amer >60 Normal >[address] [facility] Comment on above: Performed By: #### C DP, MELVIN, BMPX, IPF #### [facility] [address] [place] [address] 17058 [employer] [place]: Francisco J Fonseca MD GFR,non Amer >60 Normal >60 [facility] Comment on above: Performed By: #### C DP, MELVIN, BMPX, IPF #### [address] [address] [employer] [place]: Francisco J Fonseca MD Glucose [Mass/Vol] 149 mg/dL High 70-99 [facility] Comment on above: Performed By: #### C DP, MELVIN, BMPX, IPF #### [address] [address] [employer] [place]: Francisco J Fonseca MD Potassium [Moles/Vol] 3.6 mmol/L Low 3.7-5.3 [facility] Comment on above: Performed By: #### C DP, MELVIN, BMPX, IPF #### [address] [address] [employer] [place]: Francisco J Fonseca MD Sodium [Moles/Vol] 133 mmol/L Low 135-144 [facility] Comment on above: Performed By: #### C DP, MELVIN, BMPX, IPF #### [address] [address] [employer] [place]: Francisco J Fosneca MD Urea nitrogen [Mass/Vol] 11 mg/dL Normal 8-23 [facility] Comment on above: Performed By: #### C DP, MELVIN, BMPX, IPF #### [place] [address] [employer] [place]: Francisco J Fonseca MD CBC with Diffon 01-06-2022 Abs. Basophil 0.03 k/uL Normal 0.00-0.20 [facility] Comment on above: Performed By: #### C DP, MELVIN, BMPX, IPF #### [facility] [employer] [address] [place] [address] 96694 [employer] [place]: Francisco J Fonseca MD Abs.Imm.Granulocyte 0.05 k/uL Normal 0.00-0.30 [facility] Comment on above: Performed By: #### C DP, MELVIN, BMPX, IPF #### [place] [address] [place]: Francisco J Fonseca MD Abs.Neutrophil (Seg) 11.21 k/uL High 1.50-8.10 [facility] Comment on above: Performed By: #### C DP, MELVIN, BMPX, IPF #### [place] [address] [employer] [place]: Francisco J Fonseca MD Basophils/100 WBC (Bld) 0 % Normal 0-2 [facility] Comment on above: Performed By: #### C DP, MELVIN, BMPX, IPF #### [place] [address] [employer] [place]: Francisco J Fonseca MD Eosinophils (Bld) [#/Vol] 0.09 10*3/uL Normal 0.00-0.44 [facility] Comment on above: Performed By: #### C DP, MELVIN, BMPX, IPF #### [place] [address] [employer] [place]: Francisco J Fonseca MD Eosinophils/100 WBC (Bld) 1 % Normal 1-4 [facility] Comment on above: Performed By: #### C DP, MELVIN, BMPX, IPF #### [facility] [employer] [address] [place] [address] [employer] [place]: Francisco J Fonseca MD Erythrocyte distribution width (RBC) [Ratio] 18.4 % High 11.8-14.4 [facility] Comment on above: Performed By: #### C DP, MELVIN, BMPX, IPF #### [facility] [employer] [address] [place] [address] [employer] [place]: Francisco J Fonseca MD Hematocrit (Bld) [Volume fraction] 38.2 % Low 40.7-50.3 [facility] Comment on above: Performed By: #### C DP, MELVIN, BMPX, IPF #### [address] [address] [employer] [place]: Francisco J Fonseca MD Hemoglobin (Bld) [Mass/Vol] 13.2 g/dL Normal 13.0-17.0 [facility] Comment on above: Performed By: #### C DP, MELVIN, BMPX, IPF #### [address] [address] [employer] [place]: Francisco J Fonseca MD Immature granulocytes/100 WBC (Bld) 0 % Normal 0 [facility] Comment on above: Performed By: #### C DP, MELVIN, BMPX, IPF #### [address] [address] [employer] [place]: Francisco J Fonseca MD Lymphocytes (Bld) [#/Vol] 0.82 10*3/uL Low 1.10-3.70 [facility] Comment on above: Performed By: #### C DP, MELVIN, BMPX, IPF #### [address] [address] [employer] [place]: Francisco J Fonseca MD Lymphocytes/100 WBC (Bld) 6 % Low 24-43 [facility] Comment on above: Performed By: #### C DP, MELVIN, BMPX, IPF #### [place] [address] [employer] [place]: Francisco J Fonseca MD MCH (RBC) [Entitic mass] 26.7 pg Normal 25.2-33.5 [facility] Comment on above: Performed By: #### C DP, MELVIN, BMPX, IPF #### [address] [address] [employer] [place]: Francisco J Fonseca MD MCHC (RBC) [Mass/Vol] 34.6 g/dL Normal 28.4-34.8 [facility] Comment on above: Performed By: #### C DP, MELVIN, BMPX, IPF #### [facility] [employer] [address] [place] [address] 14068 [employer] [place]: Francisco J Fonseca MD MCV (RBC) [Entitic vol] 77.2 fL Low 82.6-102.9 [facility] Comment on above: Performed By: #### C DP, MELVIN, BMPX, IPF #### [facility] [employer] [address] [place] [address]32 [employer] [place]: Francisco J Fonseca MD Monocytes (Bld) [#/Vol] 1.14 10*3/uL Normal 0.10-1.20 [facility] Comment on above: Performed By: #### C DP, MELVIN, BMPX, IPF #### [address] [address] [employer] [place]: Francisco J Fonseca MD Monocytes/100 WBC (Bld) 9 % Normal 3-12 [facility] Comment on above: Performed By: #### C DP, MELVIN, BMPX, IPF #### [address] [address] [employer] [place]: Francisco J Fonseca MD Neutrophil (Seg) 84 % High 36-[address] [facility] Comment on above: Performed By: #### C DP, MELVIN, BMPX, IPF #### [facility] [employer] [address] [place] [address]898 [employer] [place]: Francisco J Fonseca MD NRBC Automated 0.0 per 100 WBC Normal 0.0 [facility] Comment on above: Performed By: #### C DP, MELVIN, BMPX, IPF #### [facility] [employer] [address] [place] [address]26 [employer] [place]: Francisco J Fonseca MD Platelet Count See Reflexed IPF Result Normal 138-453 [facility] Comment on above: Performed By: #### C DP, MELVIN, BMPX, IPF #### [facility] [address] [place] [address] [employer] [place]: Francisco J Fonseca MD RBC (Bld) [#/Vol] 4.95 10*6/uL Normal 4.21-5.77 [facility] Comment on above: Performed By: #### C DP, MELVIN, BMPX, IPF #### [facility] [address] [place] [address] [place]: Francisco J Fonseca MD RBC morphology finding Nom (Bld) ANISOCYTOSIS PRESENT Normal [facility] Comment on above: Result Comment: MICR OCYTOSIS PRESENT Performed By: #### C DP, MELVIN, BMPX, IPF #### [facility] [place] [address] [employer] [place]: Francisco J Fonseca MD WBC (Bld) [#/Vol] 13.3 10*3/uL High 3.5-11.3 [facility] Comment on above: Performed By: #### C DP, MELVIN, BMPX, IPF #### [facility] [address] [place] [address] [place]: Francisco J Fonseca MD Laboratory - Chemistry and C hemistry - challengeon 01-06-2022 Anion gap [Moles/Vol] 11 mmol/L 9 - 17 mmol/L [facility] Calcium [Mass/Vol] 7.7 mg/dL Low 8.6 - 10. 4 mg/dL [facility] Chloride [Moles/Vol] 99 mmol/L 98 - 10 7 mmol/L [facility] CO2 [Moles/Vol] 23 mmol/L 20 - 31 mmol/L [facility] Creatinine [Mass/Vol] 0.5 mg/dL Low 0.70 - 1.20 mg/dL [facility] GFR/1.73 sq M.predicted MDRD (S/P/Bld) [Vol rate/Area] [facility] Comment on above: Average GFR for 70 o r more years old: 75 mL/min/1.73sq m Chronic Kidney Disease: <60 mL/min/1.73sq m Kidney failure: <15 mL/min/1.73sq m eGFR calculated using average adult body mass. Additional eGFR calculator available at: http://www.[employer]/multiple_crcl_2012.htm Glucose [Mass/Vol] 149 mg/dL High 70 - 99 mg/dL [facility] Phosphate [Mass/Vol] 2.5 mg/dL 2.5 - 4 .5 mg/dL [facility] Potassium [Moles/Vol] 3.6 mmol/L Low 3.7 - 5.3 mmol/L [facility] Sodium [Moles/Vol] 133 mmol/L Low 135 - 144 mmol/L [facility] Urea nitrogen (BldV) [Mass/Vol] 11 mg/dL 8 - 23 mg/dL [facility] Laboratory - Hematology and Cell countson 01-06-2022 Basophils (Bld) [#/Vol] 0.03 10*3/uL [facility] Basophils/100 WBC (Bld) 0 % 0 - 2 % [facility] Eosinophils/100 WBC (Bld) 1 % 1 - 4 % [facility] Hematocrit (Bld) [Volume fraction] 38.2 % Low 40.7 - 50.3 % [facility] Hemoglobin (Bld) [Mass/Vol] 13.2 g/dL 13.0 - 17.0 g/dL [facility] Immature granulocytes/100 WBC (Bld) 0 % 0 [facility] Lymphocytes/100 WBC (Bld) 6 % Low 24 - 43 % [facility] MCH (RBC) [Entitic mass] 26.7 pg 25.2 - 33.5 pg [facility] MCHC (RBC) [Mass/Vol] 34.6 g/dL 28.4 - 34.8 g/dL [facility] MCV (RBC) [Entitic vol] 77.2 fL Low 82.6 - 102.9 fL [facility] Monocytes/100 WBC (Bld) 9 % 3 - 12 % [facility] Platelet distribution width (Bld) [Ratio] 18.4 % High 11.8 - 14.4 % [facility] Platelets (Bld) [#/Vol] See Reflexed IPF Result [facility] RBC (Bld) [#/Vol] 4.95 10*6/uL 4.21 - 5.77 m/uL [facility] RBC (Bld) [#/Vol] ANISOCYTOSIS PRESENT [facility] Comment on above: MICROCYTOSIS PRESENT Segmented neutrophils/100 WBC (Bld) 84 % High 36 - 65 % [facility] WBC (Bld) [#/Vol] 13.3 10*3/uL High [facility] No Panel Informationon 01-06 Platelet, Fluorescence 252 [facility] Platelet, Immature Fraction 10.1 % 1.1 - 10.3 % [facility] Absolute Eos # 0.09 [facility] Absolute Immature Granulocyte 0.05 [facility] Absolute Lymph # 0.82 Low [facility] Absolute [place] # 1.14 [facility] Interpretation and review of laboratory results Abnormal [facility] NRBC Automated 0.0 0.0 per 100 WBC [facility] Segs Absolute 11.21 High [facility] GFR >60 >60 mL/min [facility] GFR Non- >60 >60 mL/min [facility] Interpretation and review of laboratory results Abnormal [facility] PLT, Immature Fract.on 01-06 Platelet, Fluoresc. 252 k/uL Normal 138-453 [facility] Comment on above: Performed By: #### C DP, MELVIN, BMPX, IPF #### [facility] [address] [place], [place] [id number] [employer] [place]: Francisco J Fonseca MD PLT, Immature Fract. 10.1 % Normal 1.1-10.3 [facility] Comment on above: Performed By: #### C DP, MELVIN, BMPX, IPF #### [facility] [address] [place], [place] [phone] [employer] [place]: Francisco J Fonseca MD Phosphorus, Inorg.on 022 Phosphorus, Inorg. 2.5 mg/dL Normal 2.5-4.5 [facility] Comment on above: Performed By: #### C DP, MELVIN, BMPX, IPF #### [address] [address] [place]: Francisco J Fonseca MD Basic Metab w/rfx MGon 01-05 Potassium [Moles/Vol] 3.4 mmol/L Low 3.7-5.3 [facility] Comment on above: Performed By: #### C DP, MELVIN, BMPX, IPF #### [address] [address] [employer] [place]: Francisco J Fonseca MD Urea nitrogen [Mass/Vol] 14 mg/dL Normal 8-23 [facility] Comment on above: Performed By: #### C DP, MELVIN, BMPX, IPF #### [address] [address] [employer] [place]: Francisco J Fonseca MD Anion gap [Moles/Vol] 12 mmol/L Normal 9-17 [facility] Comment on above: Performed By: #### C DP, MELVIN, BMPX, IPF #### [address] [address] [employer] [place]: Francisco J Fonseca MD Calcium [Mass/Vol] 8.1 mg/dL Low 8.6-10.4 [facility] Comment on above: Performed By: #### C DP, MELVIN, BMPX, IPF #### [facility] [employer] [address] [place] [address] [employer] [place]: Francisco J Fonseca MD Chloride [Moles/Vol] 98 mmol/L Normal 98-107 [facility] Comment on above: Performed By: #### C DP, MELVIN, BMPX, IPF #### [address] [address] [employer] [place]: Francisco J Fonseca MD CO2 [Moles/Vol] 24 mmol/L Normal 20-31 [facility] Comment on above: Performed By: #### C DP, MELVIN, BMPX, IPF #### [facility] [address] [place] [address] [employer] [place]: Francisco J Fonseca MD Creatinine [Mass/Vol] 0.54 mg/dL Low 0.70-1.20 [facility] Comment on above: Performed By: #### C DP, MELVIN, BMPX, IPF #### [facility] [employer] [address] [place] [address] [employer] [place]: Francisco J Fonseca MD Glucose [Mass/Vol] 122 mg/dL High 70-99 [facility] Comment on above: Performed By: #### C DP, MELVIN, BMPX, IPF #### [facility] [employer] [address] [place] [address] [employer] [place]: Francisco J Fonseca MD Sodium [Moles/Vol] 134 mmol/L Low 135-144 [facility] Comment on above: Performed By: #### C DP, MELVIN, BMPX, IPF #### [facility] [employer] [address] [place] [address] [employer] [place]: Francisco J Fonseca MD (cont.) [facility] Comment on above: Result Comment: Aver age GFR for 70 or more years old: 75 mL/min/1.73sq m Chronic Kidney Disease: <60 mL/min/1.73sq m Kidney failure: <15 mL/min/1.73sq m eGFR calculated using average adult body mass. Additional eGFR calculator available at: http://www.[employer].com/multiple_crcl_2012.htm Performed By: #### C DP, MELVIN, BMPX, IPF #### [facility] [employer] [address] [place] [address]34 [employer] [place]: Francisco J Fonseca MD Anion gap [Moles/Vol] 11 mmol/L Normal 9-17 [facility] Comment on above: Performed By: #### C DP, MELVIN, BMPX, IPF #### [facility] [employer] [address] [place] [address] [employer] [place]: Francisco J Fonseca MD Calcium [Mass/Vol] 9.1 mg/dL Normal 8.6-10.4 [facility] Comment on above: Performed By: #### C DP, MELVIN, BMPX, IPF #### [facility] [employer] [address] [place] [address] [employer] [place]: Francisco J Fonseca MD Chloride [Moles/Vol] 99 mmol/L Normal 98-107 [facility] Comment on above: Performed By: #### C DP, MELVIN, BMPX, IPF #### [facility] [employer] [address] [place] [address] [employer] [place]: Francisco J Fonseca MD CO2 [Moles/Vol] 25 mmol/L Normal 20-31 [facility] Comment on above: Performed By: #### C DP, MELVIN, BMPX, IPF #### [facility] [employer] [address] [place] [address] [employer] [place]: Francisco J Fonseca MD Creatinine [Mass/Vol] 0.57 mg/dL Low 0.70-1.20 [facility] Comment on above: Performed By: #### C DP, MELVIN, BMPX, IPF #### [facility] [employer] [address] [place] [address] [employer] [place]: Francisco J Fonseca MD GFR, Amer >60 Normal >[address] [facility] Comment on above: Performed By: #### C DP, MELVIN, BMPX, IPF #### [facility] [employer] [address] [place] [address] [employer] [place]: Francisco J Fonseca MD GFR,non Amer >60 Normal >60 [facility] Comment on above: Performed By: #### C DP, MELVIN, BMPX, IPF #### [facility] [address] [place] [address] [employer] [place]: Francisco J Fonseca MD Glucose [Mass/Vol] 129 mg/dL High 70-99 [facility] Comment on above: Performed By: #### C DP, MELVIN, BMPX, IPF #### [facility] [address] [place] [address] [employer]: Francisco J Fonseca MD Potassium [Moles/Vol] 3.5 mmol/L Low 3.7-5.3 [facility] Comment on above: Performed By: #### C DP, MELVIN, BMPX, IPF #### [address] [address] [employer] [place]: Francisco J Fonseca MD Sodium [Moles/Vol] 135 mmol/L Normal 135-144 [facility] Comment on above: Performed By: #### C DP, MELVIN, BMPX, IPF #### [address] [address] [employer]: Francisco J Fonseca MD Urea nitrogen [Mass/Vol] 15 mg/dL Normal 8-23 [facility] Comment on above: Performed By: #### C DP, MELVIN, BMPX, IPF #### [address] [address] [employer]: Francisco J Fonseca MD (cont.) Normal [facility] Comment on above: Result Comment: Aver age GFR for 70 or more years old: 75 mL/min/1.73sq m Chronic Kidney Disease: <60 mL/min/1.73sq m Kidney failure: <15 mL/min/1.73sq m eGFR calculated using average adult body mass. Additional eGFR calculator available at: http://www.[employer]/multiple_crcl_2012.htm Performed By: #### C DP, MELVIN, BMPX, IPF #### [facility] [employer] [address] [place] [address] [employer]: Francisco J Fonseca MD Anion gap [Moles/Vol] 15 mmol/L Normal 9-17 [facility] Comment on above: Performed By: #### C DP, MELVIN, BMPX, IPF #### [address] [address] [employer]: Francisco J Fonseca MD Calcium [Mass/Vol] 8.2 mg/dL Low 8.6-10.4 [facility] Comment on above: Performed By: #### C DP, MELVIN, BMPX, IPF #### [address] [address] [employer] [place]: Francisco J Fonseca MD Chloride [Moles/Vol] 98 mmol/L Normal 98-107 [facility] Comment on above: Performed By: #### C DP, MELVIN, BMPX, IPF #### [address] [address] [employer]: Francisco J Fonseca MD CO2 [Moles/Vol] 23 mmol/L Normal 20-31 [facility] Comment on above: Performed By: #### C DP, MELVIN, BMPX, IPF #### [facility] [employer] [address] [place] [address] [employer]: Francisco J Fonseca MD Creatinine [Mass/Vol] 0.66 mg/dL Low 0.70-1.20 [facility] Comment on above: Performed By: #### C DP, MELVIN, BMPX, IPF #### [facility] [employer] [address] [place] [address] [employer]: Francisco J Fonseca MD GFR, Amer >60 Normal >[address] [facility] Comment on above: Performed By: #### C DP, MELVIN, BMPX, IPF #### [facility] [employer] [address] [place] [address] [employer]: Francisco J Fonseca MD GFR,non Amer >60 Normal >60 [facility] Comment on above: Performed By: #### C DP, MELVIN, BMPX, IPF #### [facility] [employer] [address] [place] [address] [employer]: Francisco J Fonseca MD Glucose [Mass/Vol] 90 mg/dL Normal 70-99 [facility] Comment on above: Performed By: #### C DP, MELVIN, BMPX, IPF #### [facility] [employer] [address] [place] [address] [employer]: Francisco J Fonseca MD Potassium [Moles/Vol] 3.7 mmol/L Normal 3.7-5.3 [facility] Comment on above: Performed By: #### C DP, MELVIN, BMPX, IPF #### [address] [address] [employer]: Francisco J Fonseca MD Sodium [Moles/Vol] 136 mmol/L Normal 135-144 [facility] Comment on above: Performed By: #### C DP, MELVIN, BMPX, IPF #### [address] [address] [employer]: Francisco J Fonseca MD Urea nitrogen [Mass/Vol] 20 mg/dL Normal 8-23 [facility] Comment on above: Performed By: #### C DP, MELVIN, BMPX, IPF #### [facility] [employer] [address] [place] [address] [employer]: Francisco J Fonseca MD CBC with Diffon 01-05-2022 Abs. Basophil 0.04 k/uL Normal 0.00-0.20 [facility] Comment on above: Performed By: #### C DP, MELVIN, BMPX, IPF #### [facility] [employer] [address] [place] [address] [employer]: Francisco J Fonseca MD Abs.Imm.Granulocyte 0.08 k/uL Normal 0.00-0.30 [facility] Comment on above: Performed By: #### C DP, MELVIN, BMPX, IPF #### [address] [address] [employer]: Francisco J Fonseca MD Abs.Neutrophil (Seg) 14.26 k/uL High 1.50-8.10 [facility] Comment on above: Performed By: #### C DP, MELVIN, BMPX, IPF #### [facility] [employer] [address] [place] [address] [employer]: Francisco J Fonseca MD Basophils/100 WBC (Bld) 0 % Normal 0-2 [facility] Comment on above: Performed By: #### C DP, MELVIN, BMPX, IPF #### [place] [address] [employer]: Francisco J Fonseca MD Eosinophils (Bld) [#/Vol] 0.11 10*3/uL Normal 0.00-0.44 [facility] Comment on above: Performed By: #### C DP, MELVIN, BMPX, IPF #### [address] [address] [employer]: Francisco J Fonseca MD Eosinophils/100 WBC (Bld) 1 % Normal 1-4 [facility] Comment on above: Performed By: #### C DP, MELVIN, BMPX, IPF #### [facility] [employer] [address] [place] [address] [employer]: Francisco J Fonseca MD Immature granulocytes/100 WBC (Bld) 1 % High 0 [facility] Comment on above: Performed By: #### C DP, MELVIN, BMPX, IPF #### [facility] [employer] [address] [place] [address] [employer]: Francisco J Fonseca MD Lymphocytes (Bld) [#/Vol] 0.96 10*3/uL Low 1.10-3.70 [facility] Comment on above: Performed By: #### C DP, MELVIN, BMPX, IPF #### [facility] [employer] [address] [place] [address] [employer]: Francisco J Fonseca MD Lymphocytes/100 WBC (Bld) 6 % Low 24-43 [facility] Comment on above: Performed By: #### C DP, MELVIN, BMPX, IPF #### [facility] [address] [place] [address] [employer]: Francisco J Fonseca MD Monocytes (Bld) [#/Vol] 0.97 10*3/uL Normal 0.10-1.20 [facility] Comment on above: Performed By: #### C DP, MELVIN, BMPX, IPF #### [address] [address] [employer]: Francisco J Fonseca MD Monocytes/100 WBC (Bld) 6 % Normal 3-12 [facility] Comment on above: Performed By: #### C DP, MELVIN, BMPX, IPF #### [address] [address] [employer]: Francisco J Fonseca MD Neutrophil (Seg) 87 % High 36-[address] [facility] Comment on above: Performed By: #### C DP, MELVIN, BMPX, IPF #### [facility] [employer] [address] [place] [address] [employer]: Francisco J Fonseca MD Erythrocyte distribution width (RBC) [Ratio] 18.6 % High 11.8-14.4 [facility] Comment on above: Performed By: #### C DP, MELVIN, BMPX, IPF #### [facility] [employer] [address] [place] [address] [employer]: Francisco J Fonseca MD Hematocrit (Bld) [Volume fraction] 38.9 % Low 40.7-50.3 [facility] Comment on above: Performed By: #### C DP, MELVIN, BMPX, IPF #### [address] [address] [employer]: Francisco J Fonseca MD Hemoglobin (Bld) [Mass/Vol] 13.5 g/dL Normal 13.0-17.0 [facility] Comment on above: Performed By: #### C DP, MELVIN, BMPX, IPF #### [address] [address] [employer]: Francisco J Fonseca MD MCH (RBC) [Entitic mass] 26.8 pg Normal 25.2-33.5 [facility] Comment on above: Performed By: #### C DP, MELVIN, BMPX, IPF #### [address] [address] [employer]: Francisco J Fonseca MD MCHC (RBC) [Mass/Vol] 34.7 g/dL Normal 28.4-34.8 [facility] Comment on above: Performed By: #### C DP, MELVIN, BMPX, IPF #### [address] [address] [place]: Francisco J Fonseca MD MCV (RBC) [Entitic vol] 77.3 fL Low 82.6-102.9 [facility] Comment on above: Performed By: #### C DP, MELVIN, BMPX, IPF #### [address] [address] [place]: Francisco J Fonseca MD NRBC Automated 0.0 per 100 WBC Normal 0.0 [facility] Comment on above: Performed By: #### C DP, MELVIN, BMPX, IPF #### [address] [address] [place]: Francisco J Fonseca MD Platelet Count See Reflexed IPF Result Normal 138-453 [facility] Comment on above: Performed By: #### C DP, MELVIN, BMPX, IPF #### [facility] [employer] [address] [place] [address] [place]: Francisco J Fonseca MD RBC (Bld) [#/Vol] 5.03 10*6/uL Normal 4.21-5.77 [facility] Comment on above: Performed By: #### C DP, MELVIN, BMPX, IPF #### [facility] [address] [place] [address] [place]: Francisco J Fonseca MD RBC morphology finding Nom (Bld) ANISOCYTOSIS PRESENT Normal [facility] Comment on above: Result Comment: MICR OCYTOSIS PRESENT Performed By: #### C DP, MELVIN, BMPX, IPF #### [facility] [employer] [address] [place] [address] [place]: Francisco J Fonseca MD WBC (Bld) [#/Vol] 16.4 10*3/uL High 3.5-11.3 [facility] Comment on above: Performed By: #### C DP, MELVIN, BMPX, IPF #### [facility] [employer] [address] [place] [address] [place]: Francisco J Fonseca MD FL UGIon 01-05-2022 FL UGI EXAMINATION: SINGLE CONTRAST UPPER GI SERIES 01/05/2022 HISTORY: ORDERING SYSTEM PROVIDED HISTORY: repair perf ulcer TECHNOLOGIST PROVIDED HISTORY: repair perf ulcer COMPARISON: None. TECHNIQUE: Multiple single contrast images of the esophagus, gastroesophageal junction and stomach were obtained following the oral administration of water soluble contrast. FLUOROSCOPY DOSE AND TYPE OR TIME AND EXPOSURES: DAP [id number] FINDINGS: Contrast was administered through the indwelling [...] Howard Aldridge MD 01/05/22 Final result Normal [facility] Laboratory - Chemistry and C hemistry - challengeon 01-05-2022 Magnesium [Mass/Vol] 1.4 mg/dL Low 1.6 - 2 .6 mg/dL [facility] GFR/1.73 sq M.predicted MDRD (S/P/Bld) [Vol rate/Area] [facility] Comment on above: Average GFR for 70 o r more years old: 75 mL/min/1.73sq m Chronic Kidney Disease: <60 mL/min/1.73sq m Kidney failure: <15 mL/min/1.73sq m eGFR calculated using average adult body mass. Additional eGFR calculator available at: http://www.[employer]uitive [employer]/Options Away_crcl_2011.htm Potassium [Moles/Vol] 3.4 mmol/L Low 3.7 - 5.3 mmol/L [facility] Urea nitrogen (BldV) [Mass/Vol] 14 mg/dL 8 - 23 mg/dL [facility] Phosphate [Mass/Vol] 2.4 mg/dL Low 2.5 - 4 .5 mg/dL [facility] Magnesium [Mass/Vol] 1.5 mg/dL Low 1.6 - 2 .6 mg/dL [facility] Anion gap [Moles/Vol] 11 mmol/L 9 - 17 mmol/L [facility] Calcium [Mass/Vol] 9.1 mg/dL 8.6 - 10. 4 mg/dL [facility] Chloride [Moles/Vol] 99 mmol/L 98 - 10 7 mmol/L [facility] CO2 [Moles/Vol] 25 mmol/L 20 - 31 mmol/L [facility] Creatinine [Mass/Vol] 0.57 mg/dL Low 0.70 - 1.20 mg/dL [facility] GFR/1.73 sq M.predicted MDRD (S/P/Bld) [Vol rate/Area] [facility] Comment on above: Average GFR for 70 o r more years old: 75 mL/min/1.73sq m Chronic Kidney Disease: <60 mL/min/1.73sq m Kidney failure: <15 mL/min/1.73sq m eGFR calculated using average adult body mass. Additional eGFR calculator available at: http://www.[employer]uitive [employer]/multiple_crcl_2012.htm Glucose [Mass/Vol] 129 mg/dL High 70 - 99 mg/dL [facility] Phosphate [Mass/Vol] 2.4 mg/dL Low 2.5 - 4 .5 mg/dL [facility] Potassium [Moles/Vol] 3.5 mmol/L Low 3.7 - 5.3 mmol/L [facility] Sodium [Moles/Vol] 135 mmol/L 135 - 144 mmol/L [facility] Urea nitrogen (BldV) [Mass/Vol] 15 mg/dL 8 - 23 mg/dL [facility] Laboratory - Hematology and Cell countson 01-05-2022 Basophils (Bld) [#/Vol] 0.04 10*3/uL [facility] Basophils/100 WBC (Bld) 0 % 0 - 2 % [facility] Eosinophils/100 WBC (Bld) 1 % 1 - 4 % [facility] Hematocrit (Bld) [Volume fraction] 38.9 % Low 40.7 - 50.3 % [facility] Hemoglobin (Bld) [Mass/Vol] 13.5 g/dL 13.0 - 17.0 g/dL [facility] Immature granulocytes/100 WBC (Bld) 1 % High 0 [facility] Lymphocytes/100 WBC (Bld) 6 % Low 24 - 43 % [facility] MCH (RBC) [Entitic mass] 26.8 pg 25.2 - 33.5 pg [facility] MCHC (RBC) [Mass/Vol] 34.7 g/dL 28.4 - 34.8 g/dL [facility] MCV (RBC) [Entitic vol] 77.3 fL Low 82.6 - 102.9 fL [facility] Monocytes/100 WBC (Bld) 6 % 3 - 12 % [facility] Platelet distribution width (Bld) [Ratio] 18.6 % High 11.8 - 14.4 % [facility] Platelets (Bld) [#/Vol] See Reflexed IPF Result [facility] RBC (Bld) [#/Vol] 5.03 10*6/uL 4.21 - 5.77 m/uL [facility] RBC (Bld) [#/Vol] ANISOCYTOSIS PRESENT [facility] Comment on above: MICROCYTOSIS PRESENT Segmented neutrophils/100 WBC (Bld) 87 % High 36 - 65 % [facility] WBC (Bld) [#/Vol] 16.4 10*3/uL High [facility] Magnesiumon 01-05-2022 Magnesium [Mass/Vol] 1.4 mg/dL Low 1.6-2.6 [facility] Comment on above: Performed By: #### C DP, MELVIN, BMPX, IPF #### [facility] [address] [place], [place] [phone] [place]: Francisco J Fonseca MD Magnesium [Mass/Vol] 1.5 mg/dL Low 1.6-2.6 [facility] Comment on above: Performed By: #### C DP, MELVIN, BMPX, IPF #### [facility] [address] [place], [place] [id number] [place]: Francisco J Fonseca MD No Panel Informationon 01-05 1. No evidence for contrast leakage from the stomach or duodenum following repair of perforated ulcer. 2. Gastroesophageal reflux. [facility] EXAMINATION: SINGLE CONTRAST UPPER GI SERIES 01/05/2022 HISTORY: ORDERING SYSTEM PROVIDED HISTORY: repair perf ulcer TECHNOLOGIST PROVIDED HISTORY: repair perf ulcer COMPARISON: None. TECHNIQUE: Multiple single contrast images of the esophagus, gastroesophageal junction and stomach were obtained following the oral administration of water soluble contrast. FLUOROSCOPY DOSE AND TYPE OR TIME AND EXPOSURES: DAP [id number] FINDINGS: Contrast was administered through the indwelling NG tube. No extravasation of contrast from the stomach. There is normal filling of stomach and proximal small bowel loops. There was some reflux into the biliary tree. Gastroesophageal reflux is noted. [facility] Howard Aldridge MD - 01/05/2022 EXAMINATION: SINGLE CONTRAST UPPER GI SERIES 01/05/2022 HISTORY: ORDERING SYSTEM PROVIDED HISTORY: repair perf ulcer TECHNOLOGIST PROVIDED HISTORY: repair perf ulcer COMPARISON: None. TECHNIQUE: Multiple single contrast images of the esophagus, gastroesophageal junction and stomach were obtained following the oral administration of water soluble contrast. FLUOROSCOPY DOSE AND TYPE OR TIME AND EXPOSURES: DAP 16.590Nxor6 FINDINGS: Contrast was administered through the indwelling NG tube. No extravasation of contrast from the stomach. There is normal filling of stomach and proximal small bowel loops. There was some reflux into the biliary tree. Gastroesophageal reflux is noted. IMPRESSION: 1. No evidence for contrast leakage from the stomach or duodenum following repair of perforated ulcer. 2. Gastroesophageal reflux. [facility] Work Phone: Radiology Study observation (narrative) [facility] Work Phone: Interpretation and review of laboratory results Abnormal [facility] GFR >60 >60 mL/min [facility] GFR Non- >60 >60 mL/min [facility] Interpretation and review of laboratory results Abnormal [facility] Interpretation and review of laboratory results Abnormal [facility] Interpretation and review of laboratory results Abnormal [facility] Platelet, Fluorescence 250 [facility] Platelet, Immature Fraction 10.5 % High 1.1 - 10.3 % [facility] Absolute Eos # 0.11 [facility] Absolute Immature Granulocyte 0.08 [facility] Absolute Lymph # 0.96 Low [facility] Absolute [place] # 0.97 [facility] Interpretation and review of laboratory results Abnormal [facility] NRBC Automated 0.0 0.0 per 100 WBC [facility] Segs Absolute 14.26 High [facility] Interpretation and review of laboratory results Abnormal [facility] GFR >60 >60 mL/min [facility] GFR Non- >60 >60 mL/min [facility] Interpretation and review of laboratory results Abnormal [facility] No Panel InformationOrdered By: Howard Gonzalezkor on 01-05-2022 [facility] Work Phone: PLT, Immature Fract.on 01-05 Platelet, Fluoresc. 250 k/uL Normal 138-453 [facility] Comment on above: Performed By: #### C DP, MELVIN, BMPX, IPF #### [facility] [employer] [address] [place] [address] [place]: Francisco J Fonseca MD PLT, Immature Fract. 10.5 % High 1.1-10.3 [facility] Comment on above: Performed By: #### C DP, MELVIN, BMPX, IPF #### [facility] [employer] [address] [place] [address] [place]: Francisco J Fonseca MD Phosphorus, Inorg.on 022 Phosphorus, Inorg. 2.4 mg/dL Low 2.5-4.5 [facility] Comment on above: Performed By: #### C DP, MELVIN, BMPX, IPF #### [facility] [employer] [address] [place] [address] [place]: Francisco J Fonseca MD Phosphorus, Inorg. 1.9 mg/dL Low 2.5-4.5 [facility] Comment on above: Performed By: #### C DP, MELVIN, BMPX, IPF #### [facility] [employer] [address] [place] [address] [place]: Francisco J Fonseca MD Basic Metab w/rfx MGon 01-04 Potassium [Moles/Vol] 3.4 mmol/L Low 3.7-5.3 [facility] Comment on above: Performed By: #### C DP, MELVIN, BMPX, IPF #### [address] [address] [place]: Francisco J Fonseca MD (cont.) Normal [facility] Comment on above: Result Comment: Aver age GFR for 70 or more years old: 75 mL/min/1.73sq m Chronic Kidney Disease: <60 mL/min/1.73sq m Kidney failure: <15 mL/min/1.73sq m eGFR calculated using average adult body mass. Additional eGFR calculator available at: http://www.[employer]/multiple_crcl_2011.htm Performed By: #### C DP, MELVIN, BMPX, IPF #### [facility] [employer] [address] [place] [address] [place]: Francisco J Fonseca MD Anion gap [Moles/Vol] 12 mmol/L Normal 9-17 [facility] Comment on above: Performed By: #### C DP, MELVIN, BMPX, IPF #### [address] [address] [place]: Francisco J Fonseca MD Calcium [Mass/Vol] 8.1 mg/dL Low 8.6-10.4 [facility] Comment on above: Performed By: #### C DP, MELVIN, BMPX, IPF #### [address] [address] [place]: Francisco J Fonseca MD Chloride [Moles/Vol] 99 mmol/L Normal 98-107 [facility] Comment on above: Performed By: #### C DP, MELVIN, BMPX, IPF #### [facility] [employer] [address] [place] [address] [place]: Francisco J Fonseca MD CO2 [Moles/Vol] 23 mmol/L Normal 20-31 [facility] Comment on above: Performed By: #### C DP, MELVIN, BMPX, IPF #### [facility] [employer] [address] [place] [address] [place]: Francisco J Fonseca MD Creatinine [Mass/Vol] 0.61 mg/dL Low 0.70-1.20 [facility] Comment on above: Performed By: #### C DP, MELVIN, BMPX, IPF #### [address] [address] [place]: Francisco J Fonseca MD GFR, Amer >60 Normal >[address] [facility] Comment on above: Performed By: #### C DP, MELVIN, BMPX, IPF #### [address] [address] [place]: Francisco J Fonseca MD GFR,non Amer >60 Normal >60 [facility] Comment on above: Performed By: #### C DP, MELVIN, BMPX, IPF #### [address] [address] [place]: Francisco J Fonseca MD Glucose [Mass/Vol] 125 mg/dL High 70-99 [facility] Comment on above: Performed By: #### C DP, MELVIN, BMPX, IPF #### [address] [address] [place]: Francisco J Fonseca MD Sodium [Moles/Vol] 134 mmol/L Low 135-144 [facility] Comment on above: Performed By: #### C DP, MELVIN, BMPX, IPF #### [address] [address] [place]: Francisco J Fonseca MD Urea nitrogen [Mass/Vol] 19 mg/dL Normal 8-23 [facility] Comment on above: Performed By: #### C DP, MELVIN, BMPX, IPF #### [address] [address] [place]: Francisco J Fonseca MD (cont.) [facility] Comment on above: Result Comment: Aver age GFR for 70 or more years old: 75 mL/min/1.73sq m Chronic Kidney Disease: <60 mL/min/1.73sq m Kidney failure: <15 mL/min/1.73sq m eGFR calculated using average adult body mass. Additional eGFR calculator available at: http://www.[employer]/multiple_crcl_2012.htm Performed By: #### C DP, MELVIN, BMPX, IPF #### [facility] [employer] [address] [place] [address] [place]: Francisco J Fonseca MD Anion gap [Moles/Vol] 13 mmol/L Normal 9-17 [facility] Comment on above: Performed By: #### C DP, MELVIN, BMPX, IPF #### [facility] [employer] [address] [place] [address] [place]: Francisco J Fonseca MD Calcium [Mass/Vol] 8.4 mg/dL Low 8.6-10.4 [facility] Comment on above: Performed By: #### C DP, MELVIN, BMPX, IPF #### [facility] [address] [place] [address] [place]: Francisco J Fonseca MD Chloride [Moles/Vol] 101 mmol/L Normal 98-107 [facility] Comment on above: Performed By: #### C DP, MELVIN, BMPX, IPF #### [facility] [employer] [address] [place] [address] [place]: Francisco J Fonseca MD CO2 [Moles/Vol] 23 mmol/L Normal 20-31 [facility] Comment on above: Performed By: #### C DP, MELVIN, BMPX, IPF #### [facility] [address] [place] [address] [place]: Francisco J Fonseca MD Creatinine [Mass/Vol] 0.73 mg/dL Normal 0.70-1.20 [facility] Comment on above: Performed By: #### C DP, MELVIN, BMPX, IPF #### [facility] [address] [place] [phone] [place]: Francisco J Fonseca MD GFR, Amer >60 Normal >[address] [facility] Comment on above: Performed By: #### C DP, MELVIN, BMPX, IPF #### [facility] [employer] [address] [place] [address] [place]: Francisco J Fonseca MD GFR,non Amer >60 Normal >60 [facility] Comment on above: Performed By: #### C DP, MELVIN, BMPX, IPF #### [facility] [employer] [address] [place] [address] [place]: Francisco J Fonseca MD Glucose [Mass/Vol] 124 mg/dL High 70-99 [facility] Comment on above: Performed By: #### C DP, MELVIN, BMPX, IPF #### [address] [address] [place]: Francisco J Fonseca MD Potassium [Moles/Vol] 3.9 mmol/L Normal 3.7-5.3 [facility] Comment on above: Performed By: #### C DP, MELVIN, BMPX, IPF #### [facility] [employer] [address] [place] [address] [place]: Francisco J Fonseca MD Sodium [Moles/Vol] 137 mmol/L Normal 135-144 [facility] Comment on above: Performed By: #### C DP, MELVIN, BMPX, IPF #### [facility] [employer] [address] [place] [address] [place]: Francisco J Fonseca MD Urea nitrogen [Mass/Vol] 24 mg/dL High 8-23 [facility] Comment on above: Performed By: #### C DP, MELVIN, BMPX, IPF #### [facility] [employer] [address] [place] [address] [place]: Francisco J Fonseca MD (cont.) Normal [facility] Comment on above: Result Comment: Aver age GFR for 70 or more years old: 75 mL/min/1.73sq m Chronic Kidney Disease: <60 mL/min/1.73sq m Kidney failure: <15 mL/min/1.73sq m eGFR calculated using average adult body mass. Additional eGFR calculator available at: http://www.[employer]/multiple_crcl_2012.htm Performed By: #### B MPX, MELVIN #### [facility] [address] [place] [address] [place]: Francisco J Fonseca MD Anion gap [Moles/Vol] 12 mmol/L Normal 9-17 [facility] Comment on above: Performed By: #### B MPX, MELVIN #### [facility] [address] [address] [place]: Francisco J Fonseca MD Calcium [Mass/Vol] 8.5 mg/dL Low 8.6-10.4 [facility] Comment on above: Performed By: #### B MPX, MELVIN #### [address] [address] [place]: Francisco J Fonseca MD Chloride [Moles/Vol] 101 mmol/L Normal 98-107 [facility] Comment on above: Performed By: #### B MPX, MELVIN #### [address] [address] [place]: Francisco J Fonseca MD CO2 [Moles/Vol] 23 mmol/L Normal 20-31 [facility] Comment on above: Performed By: #### B MPX, MELVIN #### [address] [address] [place]: Francisco J Fonseca MD Creatinine [Mass/Vol] 0.82 mg/dL Normal 0.70-1.20 [facility] Comment on above: Performed By: #### B MPX, MELVIN #### [address] [place] [address] [place]: Francisco J Fonseca MD GFR, Amer >60 Normal >[address] [facility] Comment on above: Performed By: #### B MPX, MELVIN #### [facility] [address] [place] [address] [place]: Francisco J Fonseca MD GFR,non Amer >60 Normal >60 [facility] Comment on above: Performed By: #### B MPX, MELVIN #### [facility] [address] [place] [address] [place]: Francisco J Fonseca MD Glucose [Mass/Vol] 100 mg/dL High 70-99 [facility] Comment on above: Performed By: #### B MPX, MELVIN #### [address] [address] [place]: Francisco J Fonseca MD Potassium [Moles/Vol] 3.9 mmol/L Normal 3.7-5.3 [facility] Comment on above: Performed By: #### B MPX, MELVIN #### [address] [address] [place]: Francisco J Fonseca MD Sodium [Moles/Vol] 136 mmol/L Normal 135-144 [facility] Comment on above: Performed By: #### B MPX, MELVIN #### [facility] [address] [place] [address] [place]: Francisco J Fonseca MD Urea nitrogen [Mass/Vol] 26 mg/dL High 8-23 [facility] Comment on above: Performed By: #### B MPX, MELVIN #### [facility] [address] [place] [address] [place]: Francisco J Fonseca MD (cont.) Normal [facility] Comment on above: Result Comment: Aver age GFR for 70 or more years old: 75 mL/min/1.73sq m Chronic Kidney Disease: <60 mL/min/1.73sq m Kidney failure: <15 mL/min/1.73sq m eGFR calculated using average adult body mass. Additional eGFR calculator available at: http://www.[employer]/multiple_crcl_2012.htm Performed By: #### C DP #### [address] [address] [place]: Francisco J Fonseca MD Anion gap [Moles/Vol] 11 mmol/L Normal 9-17 [facility] Comment on above: Performed By: #### C DP #### [address] [address] [place]: Francisco J Fonseca MD Calcium [Mass/Vol] 8.3 mg/dL Low 8.6-10.4 [facility] Comment on above: Performed By: #### C DP #### [address] [address] [place]: Francisco J Fonseca MD Chloride [Moles/Vol] 104 mmol/L Normal 98-107 [facility] Comment on above: Performed By: #### C DP #### [address] [address] [place]: Francisco J Fonseca MD CO2 [Moles/Vol] 21 mmol/L Normal 20-31 [facility] Comment on above: Performed By: #### C DP #### [address] [address] [place]: Francisco J Fonseca MD Creatinine [Mass/Vol] 0.83 mg/dL Normal 0.70-1.20 [facility] Comment on above: Performed By: #### C DP #### [address] [address] [place]: Francisco J Fonseca MD GFR, Amer >60 Normal >[address] [facility] Comment on above: Performed By: #### C DP #### [address] [address] [place]: Francisco J Fonseca MD GFR,non Amer >60 Normal >60 [facility] Comment on above: Performed By: #### C DP #### [address] [address] [place]: Francisco J Fonseca MD Glucose [Mass/Vol] 71 mg/dL Normal 70-99 [facility] Comment on above: Performed By: #### C DP #### [address] [address] [place]: Francisco J Fonseca MD Potassium [Moles/Vol] 4.5 mmol/L Normal 3.7-5.3 [facility] Comment on above: Result Comment: SPEC IMEN SLIGHTLY HEMOLYZED, RESULTS MAY BE ADVERSELY AFFECTED. Performed By: #### C DP #### [address] [address] [place]: Francisco J Fonseca MD Sodium [Moles/Vol] 136 mmol/L Normal 135-144 [facility] Comment on above: Performed By: #### C DP #### [address] [address] [place]: Francisco J Fonseca MD Urea nitrogen [Mass/Vol] 29 mg/dL High 8-23 [facility] Comment on above: Performed By: #### C DP #### [address] [address] [place]: Francisco J Fonseca MD CBC with Diffon 01-04-2022 Abs. Basophil 0.04 k/uL Normal 0.00-0.20 [facility] Comment on above: Performed By: #### C DP #### [address] [address] [place]: Francisco J Fonseca MD Abs. Eosinophil <0.03 Normal 0.00-0.44 [facility] Comment on above: Performed By: #### C DP #### [address] [address] [place]: Francisco J Fonseca MD Abs.Imm.Granulocyte 0.20 k/uL Normal 0.00-0.30 [facility] Comment on above: Performed By: #### C DP #### [address] [address] [place]: Francisco J Fonseca MD Abs.Neutrophil (Seg) 18.94 k/uL High 1.50-8.10 [facility] Comment on above: Performed By: #### C DP #### [address] [address] [place]: Francisco J Fonseca MD Basophils/100 WBC (Bld) 0 % Normal 0-2 [facility] Comment on above: Performed By: #### C DP #### [address] [address] [place]: Francisco J Fonseca MD Eosinophils/100 WBC (Bld) 0 % Low 1-4 [facility] Comment on above: Performed By: #### C DP #### [address] [address] [place]: Francisco J Fonseca MD Erythrocyte distribution width (RBC) [Ratio] 19.0 % High 11.8-14.4 [facility] Comment on above: Performed By: #### C DP #### [address] [address] [place]: Francisco J Fonseca MD Hematocrit (Bld) [Volume fraction] 35.1 % Low 40.7-50.3 [facility] Comment on above: Performed By: #### C DP #### [address] [address] [place]: Francisco J Fonseca MD Hemoglobin (Bld) [Mass/Vol] 12.0 g/dL Low 13.0-17.0 [facility] Comment on above: Performed By: #### C DP #### [address] [address] [place]: Francisco J Fonseca MD Immature granulocytes/100 WBC (Bld) 1 % High 0 [facility] Comment on above: Performed By: #### C DP #### [address] [address] [place]: Francisco J Fonseca MD Lymphocytes (Bld) [#/Vol] 0.89 10*3/uL Low 1.10-3.70 [facility] Comment on above: Performed By: #### C DP #### [address] [address] [place]: Francisco J Fonseca MD Lymphocytes/100 WBC (Bld) 4 % Low 24-43 [facility] Comment on above: Performed By: #### C DP #### [address] [address] [place]: Francisco J Fonseca MD MCH (RBC) [Entitic mass] 27.6 pg Normal 25.2-33.5 [facility] Comment on above: Performed By: #### C DP #### [address] [address] [place]: Francisco J Fonseca MD MCHC (RBC) [Mass/Vol] 34.2 g/dL Normal 28.4-34.8 [facility] Comment on above: Performed By: #### C DP #### [address] [address] [place]: Francisco J Fonseca MD MCV (RBC) [Entitic vol] 80.7 fL Low 82.6-102.9 [facility] Comment on above: Performed By: #### C DP #### [address] [address] [place]: Francisco J Fonseca MD Monocytes (Bld) [#/Vol] 1.33 10*3/uL High 0.10-1.20 [facility] Comment on above: Performed By: #### C DP #### [address] [address] [place]: Francisco J Fonseca MD Monocytes/100 WBC (Bld) 6 % Normal 3-12 [facility] Comment on above: Performed By: #### C DP #### [place] [address] [place]: Francisco J Fonseca MD Neutrophil (Seg) 89 % High 36-[address] [facility] Comment on above: Performed By: #### C DP #### [address] [address] [place]: Francisco J Fonseca MD NRBC Automated 0.0 per 100 WBC Normal 0.0 [facility] Comment on above: Performed By: #### C DP #### [place] [address] [place]: Francisco J Fonseca MD Platelet mean volume (Bld) [Entitic vol] 12.3 fL Normal 8.1-13.5 [facility] Comment on above: Performed By: #### C DP #### [address] [address] [place]: Francisco J Fonseca MD Platelets (Bld) [#/Vol] 245 10*3/uL Normal 138-453 [facility] Comment on above: Performed By: #### C DP #### [address] [address] [place]: Francisco J Fonseca MD RBC (Bld) [#/Vol] 4.35 10*6/uL Normal 4.21-5.77 [facility] Comment on above: Performed By: #### C DP #### [address] [address] [place]: Francisco J Fonseca MD RBC morphology finding Nom (Bld) ANISOCYTOSIS PRESENT Normal [facility] Comment on above: Result Comment: MICR OCYTOSIS PRESENT Performed By: #### C DP #### [address] [address] [place]: Francisco J Fonseca MD WBC (Bld) [#/Vol] 21.4 10*3/uL High 3.5-11.3 [facility] Comment on above: Performed By: #### C DP #### [address] [address] [place]: Francisco J Fonseca MD Cult,Urineon 01-04-2022 Cult,Urine Specimen Description .INDWELLING CATH URINE Culture NO GROWTH Report Status FINAL 01/04/2022 Normal [facility] Comment on above: Performed By: #### C DP, MELVIN, BMPX, IPF #### [address] [address] [place]: Francisco J Fonseca MD Laboratory - Chemistry and C hemistry - challengeon 01-04-2022 Anion gap [Moles/Vol] 15 mmol/L 9 - 17 mmol/L [facility] Calcium [Mass/Vol] 8.2 mg/dL Low 8.6 - 10. 4 mg/dL [facility] Chloride [Moles/Vol] 98 mmol/L 98 - 10 7 mmol/L [facility] CO2 [Moles/Vol] 23 mmol/L 20 - 31 mmol/L [facility] Creatinine [Mass/Vol] 0.66 mg/dL Low 0.70 - 1.20 mg/dL [facility] GFR/1.73 sq M.predicted MDRD (S/P/Bld) [Vol rate/Area] [facility] Comment on above: Average GFR for 70 o r more years old: 75 mL/min/1.73sq m Chronic Kidney Disease: <60 mL/min/1.73sq m Kidney failure: <15 mL/min/1.73sq m eGFR calculated using average adult body mass. Additional eGFR calculator available at: http://www.[employer]/multiple_crcl_2012.htm Glucose [Mass/Vol] 90 mg/dL 70 - 99 mg/dL [facility] Phosphate [Mass/Vol] 1.9 mg/dL Low 2.5 - 4 .5 mg/dL [facility] Potassium [Moles/Vol] 3.7 mmol/L 3.7 - 5.3 mmol/L [facility] Sodium [Moles/Vol] 136 mmol/L 135 - 144 mmol/L [facility] Urea nitrogen (BldV) [Mass/Vol] 20 mg/dL 8 - 23 mg/dL [facility] Magnesium [Mass/Vol] 1.5 mg/dL Low 1.6 - 2 .6 mg/dL [facility] Anion gap [Moles/Vol] 12 mmol/L 9 - 17 mmol/L [facility] Calcium [Mass/Vol] 8.1 mg/dL Low 8.6 - 10. 4 mg/dL [facility] Chloride [Moles/Vol] 99 mmol/L 98 - 10 7 mmol/L [facility] CO2 [Moles/Vol] 23 mmol/L 20 - 31 mmol/L [facility] Creatinine [Mass/Vol] 0.61 mg/dL Low 0.70 - 1.20 mg/dL [facility] GFR/1.73 sq M.predicted MDRD (S/P/Bld) [Vol rate/Area] [facility] Comment on above: Average GFR for 70 o r more years old: 75 mL/min/1.73sq m Chronic Kidney Disease: <60 mL/min/1.73sq m Kidney failure: <15 mL/min/1.73sq m eGFR calculated using average adult body mass. Additional eGFR calculator available at: http://www.[employer]/multiple_crcl_2012.htm Glucose [Mass/Vol] 125 mg/dL High 70 - 99 mg/dL [facility] Potassium [Moles/Vol] 3.4 mmol/L Low 3.7 - 5.3 mmol/L [facility] Sodium [Moles/Vol] 134 mmol/L Low 135 - 144 mmol/L [facility] Urea nitrogen (BldV) [Mass/Vol] 19 mg/dL 8 - 23 mg/dL [facility] Phosphate [Mass/Vol] 2.2 mg/dL Low 2.5 - 4 .5 mg/dL [facility] Anion gap [Moles/Vol] 13 mmol/L 9 - 17 mmol/L [facility] Calcium [Mass/Vol] 8.4 mg/dL Low 8.6 - 10. 4 mg/dL [facility] Chloride [Moles/Vol] 101 mmol/L 98 - 10 7 mmol/L [facility] CO2 [Moles/Vol] 23 mmol/L 20 - 31 mmol/L [facility] Creatinine [Mass/Vol] 0.73 mg/dL 0.70 - 1.20 mg/dL [facility] GFR/1.73 sq M.predicted MDRD (S/P/Bld) [Vol rate/Area] [facility] Comment on above: Average GFR for 70 o r more years old: 75 mL/min/1.73sq m Chronic Kidney Disease: <60 mL/min/1.73sq m Kidney failure: <15 mL/min/1.73sq m eGFR calculated using average adult body mass. Additional eGFR calculator available at: http://www.[employer]/multiple_crcl_2012.htm Glucose [Mass/Vol] 124 mg/dL High 70 - 99 mg/dL [facility] Phosphate [Mass/Vol] 2.5 mg/dL 2.5 - 4 .5 mg/dL [facility] Potassium [Moles/Vol] 3.9 mmol/L 3.7 - 5.3 mmol/L [facility] Sodium [Moles/Vol] 137 mmol/L 135 - 144 mmol/L [facility] Urea nitrogen (BldV) [Mass/Vol] 24 mg/dL High 8 - 23 mg/dL [facility] Glucose [Mass/Vol] 108 mg/dL 75 - 110 mg/dL [facility] Anion gap [Moles/Vol] 12 mmol/L 9 - 17 mmol/L [facility] Calcium [Mass/Vol] 8.5 mg/dL Low 8.6 - 10. 4 mg/dL [facility] Chloride [Moles/Vol] 101 mmol/L 98 - 10 7 mmol/L [facility] CO2 [Moles/Vol] 23 mmol/L 20 - 31 mmol/L [facility] Creatinine [Mass/Vol] 0.82 mg/dL 0.70 - 1.20 mg/dL [facility] GFR/1.73 sq M.predicted MDRD (S/P/Bld) [Vol rate/Area] [facility] Comment on above: Average GFR for 70 o r more years old: 75 mL/min/1.73sq m Chronic Kidney Disease: <60 mL/min/1.73sq m Kidney failure: <15 mL/min/1.73sq m eGFR calculated using average adult body mass. Additional eGFR calculator available at: http://www.[employer]/multiple_crcl_2012.htm Glucose [Mass/Vol] 100 mg/dL High 70 - 99 mg/dL [facility] Phosphate [Mass/Vol] 2.7 mg/dL 2.5 - 4 .5 mg/dL [facility] Potassium [Moles/Vol] 3.9 mmol/L 3.7 - 5.3 mmol/L [facility] Sodium [Moles/Vol] 136 mmol/L 135 - 144 mmol/L [facility] Urea nitrogen (BldV) [Mass/Vol] 26 mg/dL High 8 - 23 mg/dL [facility] Glucose [Mass/Vol] 81 mg/dL 75 - 110 mg/dL [facility] Anion gap [Moles/Vol] 11 mmol/L 9 - 17 mmol/L [facility] Calcium [Mass/Vol] 8.3 mg/dL Low 8.6 - 10. 4 mg/dL [facility] Chloride [Moles/Vol] 104 mmol/L 98 - 10 7 mmol/L [facility] CO2 [Moles/Vol] 21 mmol/L 20 - 31 mmol/L [facility] Creatinine [Mass/Vol] 0.83 mg/dL 0.70 - 1.20 mg/dL [facility] GFR/1.73 sq M.predicted MDRD (S/P/Bld) [Vol rate/Area] [facility] Comment on above: Average GFR for 70 o r more years old: 75 mL/min/1.73sq m Chronic Kidney Disease: <60 mL/min/1.73sq m Kidney failure: <15 mL/min/1.73sq m eGFR calculated using average adult body mass. Additional eGFR calculator available at: http://www.[employer]/multiple_crcl_2012.htm Glucose [Mass/Vol] 71 mg/dL 70 - 99 mg/dL [facility] Phosphate [Mass/Vol] 3.2 mg/dL 2.5 - 4 .5 mg/dL [facility] Potassium [Moles/Vol] 4.5 mmol/L 3.7 - 5.3 mmol/L [facility] Comment on above: SPECIMEN SLIGHTLY HE MOLYZED, RESULTS MAY BE ADVERSELY AFFECTED. Sodium [Moles/Vol] 136 mmol/L 135 - 144 mmol/L [facility] Urea nitrogen (BldV) [Mass/Vol] 29 mg/dL High 8 - 23 mg/dL [facility] Laboratory - Hematology and Cell countson 01-04-2022 Basophils (Bld) [#/Vol] 0.04 10*3/uL [facility] Basophils/100 WBC (Bld) 0 % 0 - 2 % [facility] Eosinophils/100 WBC (Bld) 0 % Low 1 - 4 % [facility] Hematocrit (Bld) [Volume fraction] 35.1 % Low 40.7 - 50.3 % [facility] Hemoglobin (Bld) [Mass/Vol] 12.0 g/dL Low 13.0 - 17.0 g/dL [facility] Immature granulocytes/100 WBC (Bld) 1 % High 0 [facility] Lymphocytes/100 WBC (Bld) 4 % Low 24 - 43 % [facility] MCH (RBC) [Entitic mass] 27.6 pg 25.2 - 33.5 pg [facility] MCHC (RBC) [Mass/Vol] 34.2 g/dL 28.4 - 34.8 g/dL [facility] MCV (RBC) [Entitic vol] 80.7 fL Low 82.6 - 102.9 fL [facility] Monocytes/100 WBC (Bld) 6 % 3 - 12 % [facility] Platelet distribution width (Bld) [Ratio] 19.0 % High 11.8 - 14.4 % [facility] Platelet mean volume (Bld) [Entitic vol] 12.3 fL 8.1 - 13.5 fL [facility] Platelets (Bld) [#/Vol] 245 10*3/uL [facility] RBC (Bld) [#/Vol] 4.35 10*6/uL 4.21 - 5.77 m/uL [facility] RBC (Bld) [#/Vol] ANISOCYTOSIS PRESENT [facility] Comment on above: MICROCYTOSIS PRESENT Segmented neutrophils/100 WBC (Bld) 89 % High 36 - 65 % [facility] WBC (Bld) [#/Vol] 21.4 10*3/uL High [facility] Laboratory - Microbiology an d Antimicrobial susceptibilityon 01-04-2022 Bacteria identified Cx Nom (U) NO GROWTH [facility] Magnesiumon 01-04-2022 Magnesium [Mass/Vol] 1.5 mg/dL Low 1.6-2.6 [facility] Comment on above: Performed By: #### C DP, MELVIN, BMPX, IPF #### [facility] [address] [place] [address] [place]: Francisco J Fonseca MD No Panel Informationon 06-26 -2022 GFR >60 >60 mL/min [facility] GFR >60 >60 mL/min [facility] GFR Non- >60 >60 mL/min [facility] Interpretation and review of laboratory results Abnormal [facility] GFR >60 >60 mL/min [facility] GFR Non- >60 >60 mL/min [facility] Interpretation and review of laboratory results Abnormal [facility] Absolute Eos # <0.03 [facility] Absolute Immature Granulocyte 0.20 [facility] Absolute Lymph # 0.89 Low [facility] Absolute [place] # 1.33 High [facility] Interpretation and review of laboratory results Abnormal [facility] NRBC Automated 0.0 0.0 per 100 WBC [facility] Segs Absolute 18.94 High [facility] Specimen Description .INDWELLING CATH URINE [facility] Phosphorus, Inorg.on 022 Phosphorus, Inorg. 2.2 mg/dL Low 2.5-4.5 [facility] Comment on above: Performed By: #### C DP, MELVIN, BMPX, IPF #### [address] [address] [place]: Francisco J Fonseca MD Phosphorus, Inorg. 2.5 mg/dL Normal 2.5-4.5 [facility] Comment on above: Performed By: #### C DP, MELVIN, BMPX, IPF #### [address] [address] [place]: Francisco J Fonseca MD Phosphorus, Inorg. 2.7 mg/dL Normal 2.5-4.5 [facility] Comment on above: Performed By: #### B MPX, MELVIN #### [address] [address] [place]: Francisco J Fonseca MD Phosphorus, Inorg. 3.2 mg/dL Normal 2.5-4.5 [facility] Comment on above: Performed By: #### C DP #### [address] [address] [place]: Francisco J Fonseca MD Basic Metab w/rfx MGon 01-03 (cont.) Normal [facility] Comment on above: Result Comment: Aver age GFR for 70 or more years old: 75 mL/min/1.73sq m Chronic Kidney Disease: <60 mL/min/1.73sq m Kidney failure: <15 mL/min/1.73sq m eGFR calculated using average adult body mass. Additional eGFR calculator available at: http://www.[employer].com/multiple_crcl_2012.htm Performed By: #### C DP, MELVIN, BMPX, IPF #### [address] [address] [place]: Francisco J Fonseca MD Anion gap [Moles/Vol] 12 mmol/L Normal 9-17 [facility] Comment on above: Performed By: #### C DP, MELVIN, BMPX, IPF #### [address] [place] [address] [place]: Francisco J Fonseca MD Calcium [Mass/Vol] 8.3 mg/dL Low 8.6-10.4 [facility] Comment on above: Performed By: #### C DP, MELVIN, BMPX, IPF #### [facility] [address] [place] [address] [place]: Francisco J Fonseca MD Chloride [Moles/Vol] 102 mmol/L Normal 98-107 [facility] Comment on above: Performed By: #### C DP, MELVIN, BMPX, IPF #### [address] [address] [place]: Francisco J Fonseca MD CO2 [Moles/Vol] 21 mmol/L Normal 20-31 [facility] Comment on above: Performed By: #### C DP, MELVIN, BMPX, IPF #### [address] [address] [place]: Francisco J Fonseca MD Creatinine [Mass/Vol] 0.88 mg/dL Normal 0.70-1.20 [facility] Comment on above: Performed By: #### C DP, MELVIN, BMPX, IPF #### [address] [address] [place]: Francisco J Fonseca MD GFR, Amer >60 Normal >[address] [facility] Comment on above: Performed By: #### C DP, MELVIN, BMPX, IPF #### [facility] [address] [place] [address] [place]: Francisco J Fonseca MD GFR,non Amer >60 Normal >60 [facility] Comment on above: Performed By: #### C DP, MELVIN, BMPX, IPF #### [facility] [address] [place] [address] [place]: Francisco J Fonseca MD Glucose [Mass/Vol] 74 mg/dL Normal 70-99 [facility] Comment on above: Performed By: #### C DP, MELVIN, BMPX, IPF #### [address] [address] [place]: Francisco J Fonseca MD Potassium [Moles/Vol] 4.2 mmol/L Normal 3.7-5.3 [facility] Comment on above: Performed By: #### C DP, MELVIN, BMPX, IPF #### [facility] [employer] [address] [place] [address] [place]: Francisco J Fonseca MD Sodium [Moles/Vol] 135 mmol/L Normal 135-144 [facility] Comment on above: Performed By: #### C DP, MELVIN, BMPX, IPF #### [address] [address] [place]: Francisco J Fonseca MD Urea nitrogen [Mass/Vol] 29 mg/dL High 8-23 [facility] Comment on above: Performed By: #### C DP, MELVIN, BMPX, IPF #### [address] [address] [place]: Francisco J Fonseca MD (cont.) [facility] Comment on above: Result Comment: Aver age GFR for 70 or more years old: 75 mL/min/1.73sq m Chronic Kidney Disease: <60 mL/min/1.73sq m Kidney failure: <15 mL/min/1.73sq m eGFR calculated using average adult body mass. Additional eGFR calculator available at: http://www.[employer].com/multiple_crcl_2012.htm Performed By: #### C DP #### [facility] [employer] [address] [place] [address] [place]: Francisco J Fonseca MD Anion gap [Moles/Vol] 12 mmol/L Normal 9-17 [facility] Comment on above: Performed By: #### C DP #### [address] [address] [place]: Francisco J Fonseca MD Calcium [Mass/Vol] 8.4 mg/dL Low 8.6-10.4 [facility] Comment on above: Performed By: #### C DP #### [address] [address] [place]: Francisco J Fonseca MD Chloride [Moles/Vol] 103 mmol/L Normal 98-107 [facility] Comment on above: Performed By: #### C DP #### [address] [address] [place]: Francisco J Fonseca MD CO2 [Moles/Vol] 21 mmol/L Normal 20-31 [facility] Comment on above: Performed By: #### C DP #### [address] [address] [place]: Francisco J Fonseca MD Creatinine [Mass/Vol] 0.93 mg/dL Normal 0.70-1.20 [facility] Comment on above: Performed By: #### C DP #### [address] [address] [place]: Francisco J Fonseca MD GFR, Amer >60 Normal >[address] [facility] Comment on above: Performed By: #### C DP #### [address] [address] [place]: Francisco J Fonseca MD GFR,non Amer >60 Normal >60 [facility] Comment on above: Performed By: #### C DP #### [address] [address] [place]: Francisco J Fonseca MD Glucose [Mass/Vol] 155 mg/dL High 70-99 [facility] Comment on above: Performed By: #### C DP #### [address] [address] [place]: Francisco J Fonseca MD Potassium [Moles/Vol] 3.9 mmol/L Normal 3.7-5.3 [facility] Comment on above: Performed By: #### C DP #### [address] [address] [place]: Francisco J Fonseca MD Sodium [Moles/Vol] 136 mmol/L Normal 135-144 [facility] Comment on above: Performed By: #### C DP #### [address] [address] [place]: Francisco J Fonseca MD Urea nitrogen [Mass/Vol] 28 mg/dL High 8- [facility] Comment on above: Performed By: #### C DP #### [address] [address] [place]: Francisco J Fonseca MD (cont.) [facility] Comment on above: Result Comment: Aver age GFR for 70 or more years old: 75 mL/min/1.73sq m Chronic Kidney Disease: <60 mL/min/1.73sq m Kidney failure: <15 mL/min/1.73sq m eGFR calculated using average adult body mass. Additional eGFR calculator available at: http://www.[employer].com/multiple_crcl_2011.htm Performed By: #### C DP, MELVIN, BMPX, IPF #### [address] [address] [place]: Francisco J Fonseca MD Anion gap [Moles/Vol] 11 mmol/L Normal 9-17 [facility] Comment on above: Performed By: #### C DP, MELVIN, BMPX, IPF #### [address] [address] [place]: Francisco J Fonseca MD Calcium [Mass/Vol] 8.4 mg/dL Low 8.6-10.4 [facility] Comment on above: Performed By: #### C DP, MELVIN, BMPX, IPF #### [facility] [employer] [address] [place] [address] [place]: Francisco J Fonseca MD Chloride [Moles/Vol] 103 mmol/L Normal 98-107 [facility] Comment on above: Performed By: #### C DP, MELVIN, BMPX, IPF #### [facility] [address] [place] [address] [place]: Francisco J Fonseca MD CO2 [Moles/Vol] 24 mmol/L Normal 20-31 [facility] Comment on above: Performed By: #### C DP, MELVIN, BMPX, IPF #### [address] [address] [place]: Francisco J Fonseca MD Creatinine [Mass/Vol] 0.92 mg/dL Normal 0.70-1.20 [facility] Comment on above: Performed By: #### C DP, MELVIN, BMPX, IPF #### [address] [address] [place]: Francisco J Fonseca MD GFR, Amer >60 Normal >[address] [facility] Comment on above: Performed By: #### C DP, MELVIN, BMPX, IPF #### [facility] [employer] [address] [place] [address] [place]: Francisco J Fonseca MD GFR,non Amer >60 Normal >60 [facility] Comment on above: Performed By: #### C DP, MELVIN, BMPX, IPF #### [facility] [employer] [address] [place] [address] [place]: Francisco J Fonseca MD Glucose [Mass/Vol] 226 mg/dL High 70-99 [facility] Comment on above: Performed By: #### C DP, MELVIN, BMPX, IPF #### [address] [address] [place]: Francisco J Fonseca MD Potassium [Moles/Vol] 5.0 mmol/L Normal 3.7-5.3 [facility] Comment on above: Performed By: #### C DP, MELVIN, BMPX, IPF #### [facility] [employer] [address] [place] [address] [place]: Francisco J Fonseca MD Sodium [Moles/Vol] 138 mmol/L Normal 135-144 [facility] Comment on above: Performed By: #### C DP, MELVIN, BMPX, IPF #### [facility] [employer] [address] [place] [address] [place]: Francisco J Fonseca MD Urea nitrogen [Mass/Vol] 26 mg/dL High 8-23 [facility] Comment on above: Performed By: #### C DP, MELVIN, BMPX, IPF #### [address] [address] [place]: Francisco J Fonseca MD (cont.) [facility] Comment on above: Result Comment: Aver age GFR for 70 or more years old: 75 mL/min/1.73sq m Chronic Kidney Disease: <60 mL/min/1.73sq m Kidney failure: <15 mL/min/1.73sq m eGFR calculated using average adult body mass. Additional eGFR calculator available at: http://www.[employer].com/multiple_crcl_2012.htm Performed By: #### C DP, MELVIN, BMPX, IPF #### [facility] [employer] [address] [place] [address] [place]: Francisco J Fonseca MD Anion gap [Moles/Vol] 13 mmol/L Normal 9-17 [facility] Comment on above: Performed By: #### C DP, MELVIN, BMPX, IPF #### [facility] [address] [place] [address] [place]: Francisco J Fonseca MD Calcium [Mass/Vol] 8.4 mg/dL Low 8.6-10.4 [facility] Comment on above: Performed By: #### C DP, MELVIN, BMPX, IPF #### [facility] [address] [place] [address] [place]: Francisco J Fonseca MD Chloride [Moles/Vol] 104 mmol/L Normal 98-107 [facility] Comment on above: Performed By: #### C DP, MELVIN, BMPX, IPF #### [facility] [address] [place] [address] [place]: Francisco J Fonseca MD CO2 [Moles/Vol] 21 mmol/L Normal 20-31 [facility] Comment on above: Performed By: #### C DP, MELVIN, BMPX, IPF #### [facility] [address] [place] [address] [place]: Francisco J Fonseca MD Creatinine [Mass/Vol] 0.84 mg/dL Normal 0.70-1.20 [facility] Comment on above: Performed By: #### C DP, MELVIN, BMPX, IPF #### [facility] [employer] [address] [place] [address] [place]: Francisco J Fonseca MD GFR, Amer >60 Normal >[address] [facility] Comment on above: Performed By: #### C DP, MELVIN, BMPX, IPF #### [facility] [address] [place] [address] [place]: Francisco J Fonseca MD GFR,non Amer >60 Normal >60 [facility] Comment on above: Performed By: #### C DP, MELVIN, BMPX, IPF #### [facility] [address] [place] [address] [place]: Francisco J Fonseca MD Glucose [Mass/Vol] 176 mg/dL High 70-99 [facility] Comment on above: Performed By: #### C DP, MELVIN, BMPX, IPF #### [facility] [address] [place] [address] [place]: Francisco J Fonseca MD Potassium [Moles/Vol] 4.5 mmol/L Normal 3.7-5.3 [facility] Comment on above: Performed By: #### C DP, MELVIN, BMPX, IPF #### [address] [address] [place]: Francisco J Fonseca MD Sodium [Moles/Vol] 138 mmol/L Normal 135-144 [facility] Comment on above: Performed By: #### C DP, MELVIN, BMPX, IPF #### [facility] [employer] [address] [place] [address] [place]: Francisco J Fonseca MD Urea nitrogen [Mass/Vol] 21 mg/dL Normal 8-23 [facility] Comment on above: Performed By: #### C DP, MELVIN, BMPX, IPF #### [facility] [employer] [address] [place] [address] [place]: Francisco J Fonseca MD (cont.) Normal [facility] Comment on above: Result Comment: Aver age GFR for 70 or more years old: 75 mL/min/1.73sq m Chronic Kidney Disease: <60 mL/min/1.73sq m Kidney failure: <15 mL/min/1.73sq m eGFR calculated using average adult body mass. Additional eGFR calculator available at: http://www.[employer]/multiple_crcl_2012.htm Performed By: #### C DP, MELVIN, BMPX, IPF #### [facility] [employer] [address] [place] [address] [place]: Francisco J Fonseca MD Anion gap [Moles/Vol] 6 mmol/L Low 9-17 [facility] Comment on above: Performed By: #### C DP, MELVIN, BMPX, IPF #### [facility] [address] [place] [address] [place]: Francisco J Fonseca MD Calcium [Mass/Vol] 8.5 mg/dL Low 8.6-10.4 [facility] Comment on above: Performed By: #### C DP, MELVIN, BMPX, IPF #### [facility] [address] [place] [address] [place]: Francisco J Fonseca MD Chloride [Moles/Vol] 105 mmol/L Normal 98-107 [facility] Comment on above: Performed By: #### C DP, MELVIN, BMPX, IPF #### [facility] [employer] [address] [place] [address] [place]: Francisco J Fonseca MD CO2 [Moles/Vol] 25 mmol/L Normal 20-31 [facility] Comment on above: Performed By: #### C DP, MELVIN, BMPX, IPF #### [facility] [employer] [address] [place] [address] [employer] [place]: Francisco J Fonseca MD Creatinine [Mass/Vol] 0.75 mg/dL Normal 0.70-1.20 [facility] Comment on above: Performed By: #### C DP, MELVIN, BMPX, IPF #### [facility] [address] [place] [address] [employer] [place]: Francisco J Fonseca MD GFR, Amer >60 Normal >[address] [facility] Comment on above: Performed By: #### C DP, MELVIN, BMPX, IPF #### [facility] [address] [place] [address] [place]: Francisco J Fonseca MD GFR,non Amer >60 Normal >60 [facility] Comment on above: Performed By: #### C DP, MELVIN, BMPX, IPF #### [address] [address] [employer] [place]: Francisco J Fonseca MD Glucose [Mass/Vol] 81 mg/dL Normal 70-99 [facility] Comment on above: Performed By: #### C DP, MELVIN, BMPX, IPF #### [address] [address] [employer] [place]: Francisco J Fonseca MD Potassium [Moles/Vol] 4.6 mmol/L Normal 3.7-5.3 [facility] Comment on above: Performed By: #### C DP, MELVIN, BMPX, IPF #### [address] [address] [employer] [place]: Francisco J Fonseca MD Sodium [Moles/Vol] 136 mmol/L Normal 135-144 [facility] Comment on above: Performed By: #### C DP, MELVIN, BMPX, IPF #### [address] [address] [employer] [place]: Francisco J Fonseca MD Urea nitrogen [Mass/Vol] 18 mg/dL Normal 8-23 [facility] Comment on above: Performed By: #### C DP, MELVIN, BMPX, IPF #### [place] [address] [place]: Francisco J Fonseca MD CBC with Diffon 01-03-2022 Abs. Basophil 0.00 k/uL Normal 0.0-0.2 [facility] Comment on above: Performed By: #### C DP #### [facility] [employer] [address] [place] [address] [place]: Francisco J Fonseca MD Abs.Imm.Granulocyte 0.00 k/uL Normal 0.00-0.30 [facility] Comment on above: Performed By: #### C DP #### [address] [address] [employer] [place]: Francisco J Fonseca MD Abs.Neutrophil (Seg) 19.89 k/uL High 1.8-7.7 [facility] Comment on above: Performed By: #### C DP #### [address] [address] [place]: Francisco J Fonseca MD Basophils/100 WBC (Bld) 0 % Normal 0-2 [facility] Comment on above: Performed By: #### C DP #### [address] [address] [place]: Francisco J Fonseca MD Eosinophils (Bld) [#/Vol] 0.00 10*3/uL Normal 0.0-0.4 [facility] Comment on above: Performed By: #### C DP #### [address] [address] [employer] [place]: Francisco J Fonseca MD Eosinophils/100 WBC (Bld) 0 % Low 1-4 [facility] Comment on above: Performed By: #### C DP #### [address] [address] [employer] [place]: Francisco J Fonseca MD Immature granulocytes/100 WBC (Bld) 0 % Normal 0 [facility] Comment on above: Performed By: #### C DP #### [address] [address] [employer] [place]: Francisco J Fonseca MD Lymphocytes (Bld) [#/Vol] 0.88 10*3/uL Low 1.0-4.8 [facility] Comment on above: Performed By: #### C DP #### [address] [address] [employer] [place]: Francisco J Fonseca MD Lymphocytes/100 WBC (Bld) 4 % Low 24-44 [facility] Comment on above: Performed By: #### C DP #### [address] [address] [employer] [place]: Francisco J Fonseca MD Monocytes (Bld) [#/Vol] 1.33 10*3/uL High 0.1-0.8 [facility] Comment on above: Performed By: #### C DP #### [address] [address] [place]: Francisco J Fonseca MD Monocytes/100 WBC (Bld) 6 % Normal 1-7 [facility] Comment on above: Performed By: #### C DP #### [address] [address] [place]: Francisco J Fonseca MD Morphology Walter (Bld) [Interp] MICROCYTOSIS PRESENT Normal [facility] Comment on above: Result Comment: ANIS OCYTOSIS PRESENT 1+ ACANTHOCYTES Performed By: #### C DP #### [address] [address] [place]: Francisco J Fonseca MD Neutrophil (Seg) 90 % High 36-[address] [facility] Comment on above: Performed By: #### C DP #### [address] [address] [place]: Francisco J Fonseca MD Erythrocyte distribution width (RBC) [Ratio] 18.9 % High 11.8-14.4 [facility] Comment on above: Performed By: #### C DP #### [address] [address] [place]: Francisco J Fonseca MD Hematocrit (Bld) [Volume fraction] 37.4 % Low 40.7-50.3 [facility] Comment on above: Performed By: #### C DP #### [address] [place] [address] [place]: Francisco J Fonseca MD Hemoglobin (Bld) [Mass/Vol] 12.2 g/dL Low 13.0-17.0 [facility] Comment on above: Performed By: #### C DP #### [address] [address] [place]: Francisco J Fonseca MD MCH (RBC) [Entitic mass] 26.9 pg Normal 25.2-33.5 [facility] Comment on above: Performed By: #### C DP #### [address] [address] [place]: Francisco J Fonseca MD MCHC (RBC) [Mass/Vol] 32.6 g/dL Normal 28.4-34.8 [facility] Comment on above: Performed By: #### C DP #### [address] [address] [place]: Francisco J Fonseca MD MCV (RBC) [Entitic vol] 82.4 fL Low 82.6-102.9 [facility] Comment on above: Performed By: #### C DP #### [address] [address] [place]: Francisco J Fonseca MD NRBC Automated 0.0 per 100 WBC Normal 0.0 [facility] Comment on above: Performed By: #### C DP #### [address] [address] [employer] [place]: Francisco J Fonseca MD Platelet mean volume (Bld) [Entitic vol] 12.6 fL Normal 8.1-13.5 [facility] Comment on above: Performed By: #### C DP #### [address] [address] [employer] [place]: Francisco J Fonseca MD Platelets (Bld) [#/Vol] 292 10*3/uL Normal 138-453 [facility] Comment on above: Performed By: #### C DP #### [facility] [place] [address] [place]: Francisco J Fonseca MD RBC (Bld) [#/Vol] 4.54 10*6/uL Normal 4.21-5.77 [facility] Comment on above: Performed By: #### C DP #### [facility] [address] [place] [address] [employer] [place]: Francisco J Fonseca MD WBC (Bld) [#/Vol] 22.1 10*3/uL High 3.5-11.3 [facility] Comment on above: Performed By: #### C DP #### [address] [address] [place]: Francisco J Fonseca MD Hemoglobin A1Con 01-03-2022 Glucose [Mass/Vol] 223 mg/dL Normal [facility] Comment on above: Result Comment: The ADA and AACC recommend providing the estimated average glucose result to permit better patient understanding of their HBA1c result. Performed By: #### C DP, MELVIN, BMPX, IPF #### [facility] [employer] [address] [place] [address] [employer] [place]: Francisco J Fonseca MD HbA1c (Bld) [Mass fraction] 9.4 % High 4.0-6.0 [facility] Comment on above: Performed By: #### C DP, MELVIN, BMPX, IPF #### [facility] [place] [address] [place]: Francisco J Fonseca MD Laboratory - Chemistry and C hemistry - challengeon 01-03-2022 Anion gap [Moles/Vol] 12 mmol/L 9 - 17 mmol/L [facility] [employer] Calcium [Mass/Vol] 8.3 mg/dL Low 8.6 - 10. 4 mg/dL [facility] Chloride [Moles/Vol] 102 mmol/L 98 - 10 7 mmol/L [facility] CO2 [Moles/Vol] 21 mmol/L 20 - 31 mmol/L [facility] Creatinine [Mass/Vol] 0.88 mg/dL 0.70 - 1.20 mg/dL [facility] GFR/1.73 sq M.predicted MDRD (S/P/Bld) [Vol rate/Area] [facility] Comment on above: Average GFR for 70 o r more years old: 75 mL/min/1.73sq m Chronic Kidney Disease: <60 mL/min/1.73sq m Kidney failure: <15 mL/min/1.73sq m eGFR calculated using average adult body mass. Additional eGFR calculator available at: http://www.[employer]/multiple_crcl_2011.htm Glucose [Mass/Vol] 74 mg/dL 70 - 99 mg/dL [facility] Phosphate [Mass/Vol] 3.3 mg/dL 2.5 - 4 .5 mg/dL [facility] Potassium [Moles/Vol] 4.2 mmol/L 3.7 - 5.3 mmol/L [facility] Sodium [Moles/Vol] 135 mmol/L 135 - 144 mmol/L [facility] Urea nitrogen (BldV) [Mass/Vol] 29 mg/dL High 8 - 23 mg/dL [facility] Glucose [Mass/Vol] 69 mg/dL Low 75 - 110 mg/dL [facility] Glucose [Mass/Vol] 93 mg/dL 75 - 110 mg/dL [facility] Glucose [Mass/Vol] 55 mg/dL Low 75 - 110 mg/dL [facility] Comment on above: Critical Noted Glucose [Mass/Vol] 88 mg/dL 75 - 110 mg/dL [facility] Anion gap [Moles/Vol] 12 mmol/L 9 - 17 mmol/L [facility] [employer] Calcium [Mass/Vol] 8.4 mg/dL Low 8.6 - 10. 4 mg/dL [facility] Chloride [Moles/Vol] 103 mmol/L 98 - 10 7 mmol/L [facility] CO2 [Moles/Vol] 21 mmol/L 20 - 31 mmol/L [facility] Creatinine [Mass/Vol] 0.93 mg/dL 0.70 - 1.20 mg/dL [facility] GFR/1.73 sq M.predicted MDRD (S/P/Bld) [Vol rate/Area] [facility] Comment on above: Average GFR for 70 o r more years old: 75 mL/min/1.73sq m Chronic Kidney Disease: <60 mL/min/1.73sq m Kidney failure: <15 mL/min/1.73sq m eGFR calculated using average adult body mass. Additional eGFR calculator available at: http://www.[employer]/multiple_crcl_2011.htm Glucose [Mass/Vol] 155 mg/dL High 70 - 99 mg/dL [facility] Phosphate [Mass/Vol] 2.9 mg/dL 2.5 - 4 .5 mg/dL [facility] Potassium [Moles/Vol] 3.9 mmol/L 3.7 - 5.3 mmol/L [facility] Sodium [Moles/Vol] 136 mmol/L 135 - 144 mmol/L [facility] Urea nitrogen (BldV) [Mass/Vol] 28 mg/dL High 8 - 23 mg/dL [facility] Glucose [Mass/Vol] 152 mg/dL High 75 - 110 mg/dL [facility] Glucose [Mass/Vol] 216 mg/dL High 75 - 110 mg/dL [facility] Glucose [Mass/Vol] 242 mg/dL High 75 - 110 mg/dL [facility] Glucose [Mass/Vol] 243 mg/dL High 75 - 110 mg/dL [facility] Anion gap [Moles/Vol] 11 mmol/L 9 - 17 mmol/L [facility] Calcium [Mass/Vol] 8.4 mg/dL Low 8.6 - 10. 4 mg/dL [facility] Chloride [Moles/Vol] 103 mmol/L 98 - 10 7 mmol/L [facility] CO2 [Moles/Vol] 24 mmol/L 20 - 31 mmol/L [facility] Creatinine [Mass/Vol] 0.92 mg/dL 0.70 - 1.20 mg/dL [facility] GFR/1.73 sq M.predicted MDRD (S/P/Bld) [Vol rate/Area] [facility] Comment on above: Average GFR for 70 o r more years old: 75 mL/min/1.73sq m Chronic Kidney Disease: <60 mL/min/1.73sq m Kidney failure: <15 mL/min/1.73sq m eGFR calculated using average adult body mass. Additional eGFR calculator available at: http://www.[employer]/multiple_crcl_2012.htm Glucose [Mass/Vol] 226 mg/dL High 70 - 99 mg/dL [facility] [employer] Phosphate [Mass/Vol] 3.5 mg/dL 2.5 - 4 .5 mg/dL [facility] Potassium [Moles/Vol] 5.0 mmol/L 3.7 - 5.3 mmol/L [facility] Sodium [Moles/Vol] 138 mmol/L 135 - 144 mmol/L [facility] Urea nitrogen (BldV) [Mass/Vol] 26 mg/dL High 8 - 23 mg/dL [facility] Glucose [Mass/Vol] 214 mg/dL High 75 - 110 mg/dL [facility] Anion gap [Moles/Vol] 13 mmol/L 9 - 17 mmol/L [facility] Calcium [Mass/Vol] 8.4 mg/dL Low 8.6 - 10. 4 mg/dL [facility] Chloride [Moles/Vol] 104 mmol/L 98 - 10 7 mmol/L [facility] CO2 [Moles/Vol] 21 mmol/L 20 - 31 mmol/L [facility] Creatinine [Mass/Vol] 0.84 mg/dL 0.70 - 1.20 mg/dL [facility] GFR/1.73 sq M.predicted MDRD (S/P/Bld) [Vol rate/Area] [facility] Comment on above: Average GFR for 70 o r more years old: 75 mL/min/1.73sq m Chronic Kidney Disease: <60 mL/min/1.73sq m Kidney failure: <15 mL/min/1.73sq m eGFR calculated using average adult body mass. Additional eGFR calculator available at: http://www.[employer]/multiple_crcl_2012.htm Glucose [Mass/Vol] 176 mg/dL High 70 - 99 mg/dL [facility] [employer] Phosphate [Mass/Vol] 3.1 mg/dL 2.5 - 4 .5 mg/dL [facility] Potassium [Moles/Vol] 4.5 mmol/L 3.7 - 5.3 mmol/L [facility] Sodium [Moles/Vol] 138 mmol/L 135 - 144 mmol/L [facility] Urea nitrogen (BldV) [Mass/Vol] 21 mg/dL 8 - 23 mg/dL [facility] Glucose [Mass/Vol] 126 mg/dL High 75 - 110 mg/dL [facility] Glucose [Mass/Vol] 165 mg/dL High 75 - 110 mg/dL [facility] Glucose [Mass/Vol] 142 mg/dL High 75 - 110 mg/dL [facility] Glucose [Mass/Vol] 89 mg/dL 75 - 110 mg/dL [facility] Glucose [Mass/Vol] 71 mg/dL Low 75 - 110 mg/dL [facility] Glucose [Mass/Vol] 82 mg/dL 75 - 110 mg/dL [facility] Glucose [Mass/Vol] 128 mg/dL High 75 - 110 mg/dL [facility] Anion gap [Moles/Vol] 6 mmol/L Low 9 - 17 mmol/L [facility] Calcium [Mass/Vol] 8.5 mg/dL Low 8.6 - 10. 4 mg/dL [facility] Chloride [Moles/Vol] 105 mmol/L 98 - 10 7 mmol/L [facility] CO2 [Moles/Vol] 25 mmol/L 20 - 31 mmol/L [facility] Creatinine [Mass/Vol] 0.75 mg/dL 0.70 - 1.20 mg/dL [facility] GFR/1.73 sq M.predicted MDRD (S/P/Bld) [Vol rate/Area] [facility] Comment on above: Average GFR for 70 o r more years old: 75 mL/min/1.73sq m Chronic Kidney Disease: <60 mL/min/1.73sq m Kidney failure: <15 mL/min/1.73sq m eGFR calculated using average adult body mass. Additional eGFR calculator available at: http://www.[employer]/multiple_crcl_2012.htm Glucose [Mass/Vol] 81 mg/dL 70 - 99 mg/dL [facility] Phosphate [Mass/Vol] 2.5 mg/dL 2.5 - 4 .5 mg/dL [facility] Potassium [Moles/Vol] 4.6 mmol/L 3.7 - 5.3 mmol/L [facility] Sodium [Moles/Vol] 136 mmol/L 135 - 144 mmol/L [facility] Urea nitrogen (BldV) [Mass/Vol] 18 mg/dL 8 - 23 mg/dL [facility] Glucose [Mass/Vol] 187 mg/dL High 75 - 110 mg/dL [facility] Laboratory - Hematology and Cell countson 01-03-2022 Basophils (Bld) [#/Vol] 0.00 10*3/uL [facility] Basophils/100 WBC (Bld) 0 % 0 - 2 % [facility] Eosinophils/100 WBC (Bld) 0 % Low 1 - 4 % [facility] Hematocrit (Bld) [Volume fraction] 37.4 % Low 40.7 - 50.3 % [facility] Hemoglobin (Bld) [Mass/Vol] 12.2 g/dL Low 13.0 - 17.0 g/dL [facility] Immature granulocytes/100 WBC (Bld) 0 % 0 [facility] Lymphocytes/100 WBC (Bld) 4 % Low 24 - 44 % [facility] MCH (RBC) [Entitic mass] 26.9 pg 25.2 - 33.5 pg [facility] MCHC (RBC) [Mass/Vol] 32.6 g/dL 28.4 - 34.8 g/dL [facility] MCV (RBC) [Entitic vol] 82.4 fL Low 82.6 - 102.9 fL [facility] Monocytes/100 WBC (Bld) 6 % 1 - 7 % [facility] Morphology Walter (Bld) [Interp] MICROCYTOSIS PRESENT [facility] Morphology Walter (Bld) [Interp] ANISOCYTOSIS PRESENT [facility] Morphology Walter (Bld) [Interp] 1+ ACANTHOCYTES [facility] Platelet distribution width (Bld) [Ratio] 18.9 % High 11.8 - 14.4 % [facility] Platelet mean volume (Bld) [Entitic vol] 12.6 fL 8.1 - 13.5 fL [facility] Platelets (Bld) [#/Vol] 292 10*3/uL [facility] RBC (Bld) [#/Vol] 4.54 10*6/uL 4.21 - 5.77 m/uL [facility] Segmented neutrophils/100 WBC (Bld) 90 % High 36 - 66 % [facility] WBC (Bld) [#/Vol] 22.1 10*3/uL High [facility] No Panel Informationon 01-03 GFR >60 >60 [...] Low [facility] [employer] [place] # 1.33 High [facility] [...] 022 Phosphorus, Inorg. 3.3 mg/dL Normal 2.5-4.5 [facility] Comment on above: Performed By: #### C DP, MELVIN, BMPX, IPF #### [facility] [address] [place] [address] [place]: Francisco J Fonseca MD Phosphorus, Inorg. 2.9 mg/dL Normal 2.5-4.5 [facility] Comment on above: Performed By: #### C DP #### [facility] [address] [place] [address] [place]: Francisco J Fonseca MD Phosphorus, Inorg. 3.5 mg/dL Normal 2.5-4.5 [facility] Comment on above: Performed By: #### C DP, MELVIN, BMPX, IPF #### [facility] [address] [place] [address] [place]: Francisco J Fonseca MD Phosphorus, Inorg. 3.1 mg/dL Normal 2.5-4.5 [facility] Comment on above: Performed By: #### C DP, MELVIN, BMPX, IPF #### [facility] [address] [place] [address] [place]: Francisco J Fonseca MD Phosphorus, Inorg. 2.5 mg/dL Normal 2.5-4.5 [facility] Comment on above: Performed By: #### C DP, MELVIN, BMPX, IPF #### [facility] [address] [place] [address] [place]: Francisco J Fonseca MD XR ABDOMEN FOR [...] Eulogio Winslow MD 01/02/22 Final result Normal [facility] AMYLASEon 01-02-2022 Amylase [Catalytic activity/Vol] 13 U/L Critically low 25-115 [facility] Comment on above: Performed By: #### L IPA, TRE, LIVER, BMP #### [facility] [address] [place], [place] [address] Dr. Kylee Bunch Basic Metabolic Profon 01-02 Glucose [Mass/Vol] 452 mg/dL Critically high 70-99 M [facility] Comment on above: Performed By: #### C DP #### [address] [address] [place]: Francisco J Fonseca MD (cont.) Normal [facility] Comment on above: Result Comment: Aver age GFR for 70 or more years old: 75 mL/min/1.73sq m Chronic Kidney Disease: <60 mL/min/1.73sq m Kidney failure: <15 mL/min/1.73sq m eGFR calculated using average adult body mass. Additional eGFR calculator available at: http://www.[employer]/multiple_crcl_2012.htm Performed By: #### C DP #### [address] [address] [employer] [place]: Francisco J Fonseca MD Anion gap [Moles/Vol] 12 mmol/L Normal 9-17 [facility] Comment on above: Performed By: #### C DP #### [address] [address] [employer] [place]: Francisco J Fonseca MD Calcium [Mass/Vol] 8.6 mg/dL Normal 8.6-10.4 [facility] Comment on above: Performed By: #### C DP #### [address] [address] [employer] [place]: Francisco J Fonseca MD Chloride [Moles/Vol] 96 mmol/L Low 98-107 [facility] Comment on above: Performed By: #### C DP #### [address] [address] [employer] [place]: Francisco J Fonseca MD CO2 [Moles/Vol] 22 mmol/L Normal 20-31 [facility] Comment on above: Performed By: #### C DP #### [address] [address] [employer] [place]: Francisco J oFnseca MD Creatinine [Mass/Vol] 0.81 mg/dL Normal 0.70-1.20 [facility] Comment on above: Performed By: #### C DP #### [address] [address] [employer] [place]: Francisco J Fonseca MD GFR, Amer >60 Normal >[address] [facility] Comment on above: Performed By: #### C DP #### [address] [address] [employer]: Francisco J Fonseca MD GFR,non Amer >60 Normal >60 [facility] Comment on above: Performed By: #### C DP #### [address] [address] [employer] [place]: Francisco J Fonseca MD Potassium [Moles/Vol] 4.1 mmol/L Normal 3.7-5.3 [facility] Comment on above: Performed By: #### C DP #### [address] [address] [employer]: Francisco J Fonseca MD Sodium [Moles/Vol] 130 mmol/L Low 135-144 [facility] Comment on above: Performed By: #### C DP #### [address] [address] [employer] [place]: Francisco J Fonseca MD Urea nitrogen [Mass/Vol] 19 mg/dL Normal 8-23 [facility] Comment on above: Performed By: #### C DP #### [address] [address] [employer] [place]: Francisco J Fonseca MD CBC AUTO DIFFon 01-02-2022 BASO # 0.0 103/ul Normal 0.0-0.1 [facility] Comment on above: Performed By: #### C MP, LIPID #### [facility] [address] [place] [address] Dr. Kylee Bunch Basophils/100 WBC (Bld) 0.2 % Normal 0.2-2.0 [facility] Comment on above: Performed By: #### C MP, LIPID #### [facility] [address] [place] [address] Dr. Kylee Bunch EO # 0.1 103/ul Normal 0.0-0.7 [facility] Comment on above: Performed By: #### C MP, LIPID #### [facility] [address] [place] [address] Dr. Kylee Bunch Eosinophils/100 WBC (Bld) 0.5 % Critically low 0.9-7.0 [facility] Comment on above: Performed By: #### C MP, LIPID #### [facility] [address] [place] [address] Dr. Kylee Bunch Erythrocyte distribution width (RBC) [Ratio] 18.5 % Critically high 11.0-15.0 [facility] Comment on above: Performed By: #### C MP, LIPID #### [facility] [address] [place] [address] Dr. Kylee Bunch Hematocrit (Bld) [Volume fraction] 37.0 % Critically low 42.0-54.0 [facility] Comment on above: Performed By: #### C MP, LIPID #### [facility] [address] [place] [address] Dr. Kylee Bunch Hemoglobin (Bld) [Mass/Vol] 12.6 g/dL Critically low 14.0-18.0 [facility] Comment on above: Performed By: #### C MP, LIPID #### [facility] [address] [place] [address] Dr. Kylee Bunch IG # 0.02 10e3/ul Normal 0.00-0.03 [facility] Comment on above: Performed By: #### C MP, LIPID #### [facility] [address] [place] [address] Dr. Kylee Bunch IG % 0.2 % Normal 0.0-0.5 [facility] Comment on above: Performed By: #### C MP, LIPID #### [facility] [address] [address] [address] Kylee Bunch LYMPH # 1.2 103/ul Normal 1.2-3.8 [facility] Comment on above: Performed By: #### C MP, LIPID #### [facility] [address] [address] [address] Kylee Bunch Lymphocytes/100 WBC (Bld) 11.3 % Critically low 20.5-60.0 [facility] Comment on above: Performed By: #### C MP, LIPID #### [facility] [address] [place] [address] Dr. Kylee Bunch MANUAL DIFF REQ NO Normal [facility] Comment on above: Performed By: #### C MP, LIPID #### [facility] [address] [place] [address] Dr. Kylee Bunch MCH (RBC) [Entitic mass] 27.1 pg Normal 25.9-34.0 [facility] Comment on above: Performed By: #### C MP, LIPID #### [facility] [address] [address] [address] Kylee Bunch MCHC (RBC) [Mass/Vol] 34.1 g/dL Normal 29.9-35.2 [facility] Comment on above: Performed By: #### C MP, LIPID #### [facility] [address] [place] [address] Dr. Kylee Bunch MCV (RBC) [Entitic vol] 79.6 fL Critically low 80.0-94.0 [facility] Comment on above: Performed By: #### C MP, LIPID #### [facility] [address] [place] [address] Dr. Kylee Bunch MONO # 0.5 103/ul Normal 0.3-0.8 [facility] Comment on above: Performed By: #### C MP, LIPID #### [facility] [address] [place], [place] [id number] Dr. Kylee Bunch Monocytes/100 WBC (Bld) 4.5 % Normal 1.7-12.0 [facility] Comment on above: Performed By: #### C MP, LIPID #### [facility] [address] [place] [address] Dr. Kylee Bunch NEUT # 8.5 103/ul Critically high 1.4-6.5 [facility] Comment on above: Performed By: #### C MP, LIPID #### [facility] [address] [place] [address] Dr. Kylee Bunch Neutrophils/100 WBC (Bld) 83.3 % Critically high 43.0-75.0 [facility] Comment on above: Performed By: #### C MP, LIPID #### [facility] [address] [place] [address] Dr. Kylee Bunch Platelet mean volume (Bld) [Entitic vol] 12.6 fL Normal 9.5-13.5 [facility] Comment on above: Performed By: #### C MP, LIPID #### [facility] [address] [place] [address] Dr. Kylee Bunch PLT 335 103/ul Normal 150-450 [facility] Comment on above: Performed By: #### C MP, LIPID #### [facility] [address] [place] [address] Dr. Kylee Bunch RBC 4.65 106/ul Critically low 4.70-6.10 [facility] Comment on above: Performed By: #### C MP, LIPID #### [facility] [address] [place] [address] Dr. Kylee Bunch WBC 10.2 103/ul Normal 4.0-11.0 [facility] Comment on above: Performed By: #### C MP, LIPID #### [facility] [address] [place] [address] Dr. Kylee Bunch CBC with Diffon 01-02-2022 Abs. Basophil 0.00 k/uL Normal 0.00-0.20 [facility] Comment on above: Performed By: #### C DP, MELVIN, BMPX, IPF #### [facility] [employer] [address] [place] [address] [place]: Francisco J Fonseca MD Abs.Imm.Granulocyte 0.00 k/uL Normal 0.00-0.30 [facility] Comment on above: Performed By: #### C DP, MELVIN, BMPX, IPF #### [facility] [employer] [address] [place] [address] [place]: Francisco J Fonseca MD Abs.Neutrophil (Seg) 19.47 k/uL High 1.50-8.10 [facility] Comment on above: Performed By: #### C DP, MELVIN, BMPX, IPF #### [facility] [employer] [address] [place] [address] [place]: Francisco J Fonseca MD Basophils/100 WBC (Bld) 0 % Normal 0-2 [facility] Comment on above: Performed By: #### C DP, MELVIN, BMPX, IPF #### [facility] [employer] [address] [place] [address] [place]: Francisco J Fonseca MD Eosinophils (Bld) [#/Vol] 0.00 10*3/uL Normal 0.00-0.44 [facility] Comment on above: Performed By: #### C DP, MELVIN, BMPX, IPF #### [facility] [employer] [address] [place] [address] [place]: Francisco J Fonseca MD Eosinophils/100 WBC (Bld) 0 % Low 1-4 [facility] Comment on above: Performed By: #### C DP, MELVIN, BMPX, IPF #### [facility] [employer] [address] [place] [address] [place]: Francisco J Fonseca MD Immature granulocytes/100 WBC (Bld) 0 % Normal 0 [facility] Comment on above: Performed By: #### C DP, MELVIN, BMPX, IPF #### [address] [address] [place]: Francisco J Fonseca MD Lymphocytes (Bld) [#/Vol] 0.41 10*3/uL Low 1.10-3.70 [facility] Comment on above: Performed By: #### C DP, MELVIN, BMPX, IPF #### [address] [address] [place]: Francisco J Fonseca MD Lymphocytes/100 WBC (Bld) 2 % Low 24-43 [facility] Comment on above: Performed By: #### C DP, MELVIN, BMPX, IPF #### [address] [address] [place]: Francisco J Fonseca MD Monocytes (Bld) [#/Vol] 0.62 10*3/uL Normal 0.10-1.20 [facility] Comment on above: Performed By: #### C DP, MELVIN, BMPX, IPF #### [address] [address] [place]: Francisco J Fonseca MD Monocytes/100 WBC (Bld) 3 % Normal 3-12 [facility] Comment on above: Performed By: #### C DP, MELVIN, BMPX, IPF #### [address] [address] [place]: Francsico J Fonseca MD Morphology Walter (Bld) [Interp] ANISOCYTOSIS PRESENT Normal [facility] Comment on above: Performed By: #### C DP, MELVIN, BMPX, IPF #### [facility] [employer] [address] [place] [address] [place]: Francisco J Fonseca MD Neutrophil (Seg) 95 % High 36-[address] [facility] Comment on above: Performed By: #### C DP, MELVIN, BMPX, IPF #### [facility] [employer] [address] [place] [address] [place]: Francisco J Fonseca MD Erythrocyte distribution width (RBC) [Ratio] 18.3 % High 11.8-14.4 [facility] Comment on above: Performed By: #### C DP, MELVIN, BMPX, IPF #### [facility] [employer] [address] [place] [address] [place]: Francisco J Fonseca MD Hematocrit (Bld) [Volume fraction] 38.9 % Low 40.7-50.3 [facility] Comment on above: Performed By: #### C DP, MELVIN, BMPX, IPF #### [facility] [employer] [address] [place] [address] [place]: Francisco J Fonseca MD Hemoglobin (Bld) [Mass/Vol] 12.9 g/dL Low 13.0-17.0 [facility] Comment on above: Performed By: #### C DP, MELVIN, BMPX, IPF #### [facility] [employer] [address] [place] [address] [place]: Francisco J Fonseca MD MCH (RBC) [Entitic mass] 26.9 pg Normal 25.2-33.5 [facility] Comment on above: Performed By: #### C DP, MELVIN, BMPX, IPF #### [facility] [employer] [address] [place] [address] [place]: Francisco J Fonseca MD MCHC (RBC) [Mass/Vol] 33.2 g/dL Normal 28.4-34.8 [facility] Comment on above: Performed By: #### C DP, MELVIN, BMPX, IPF #### [facility] [employer] [address] [place] [address] [place]: Francisco J Fonseca MD MCV (RBC) [Entitic vol] 81.2 fL Low 82.6-102.9 [facility] Comment on above: Performed By: #### C DP, MELVIN, BMPX, IPF #### [address] [address] [place]: Francisco J Fonseca MD NRBC Automated 0.0 per 100 WBC Normal 0.0 [facility] Comment on above: Performed By: #### C DP, MELVIN, BMPX, IPF #### [address] [address] [place]: Francisco J Fonseca MD Platelet mean volume (Bld) [Entitic vol] 12.4 fL Normal 8.1-13.5 [facility] Comment on above: Performed By: #### C DP, MELVIN, BMPX, IPF #### [address] [address] [place]: Francisco J Fonseca MD Platelets (Bld) [#/Vol] 324 10*3/uL Normal 138-453 [facility] Comment on above: Performed By: #### C DP, MELVIN, BMPX, IPF #### [address] [address] [place]: Francisco J Fonseca MD RBC (Bld) [#/Vol] 4.79 10*6/uL Normal 4.21-5.77 [facility] Comment on above: Performed By: #### C DP, MELVIN, BMPX, IPF #### [address] [address] [place]: Francisco J Fonseca MD WBC (Bld) [#/Vol] 20.5 10*3/uL High 3.5-11.3 [facility] Comment on above: Performed By: #### C DP, MELVIN, BMPX, IPF #### [address] [address] [place]: Francisco J Fonseca MD CT ABD/PELV W [...] identified. Background diffuse body wall edema with aewrn-[id number] volume of abdominal and pelvic ascites noted. [...] ROLA HOLCOMB Date: 2022-01-02 09:27 Normal [facility] Covid-19 PCR (CVDTBH)on 12-11 SARS-CoV-2 (COVID-19) RNA ANASTASIA+probe Ql (Unsp spec) Not detected Normal NOT DETECTED [facility] Comment on above: Result Comment: When diagnostic [...] for this test is supported by the [place] of Health and Human Service's declaration that [...] used). Performed By: #### C VDTBH #### [facility] [address] [place] [address] Dr. Kylee Bunch ER URINE PROFILEon 2 Bilirubin Ql (U) Negative Normal NEGATIVE [facility] Comment on above: Performed By: #### C MP, LIPID #### [facility] [address] [place] [address] Dr. Kylee Bunch Clarity (U) CLEAR Normal CLEAR [facility] Comment on above: Performed By: #### C MP, LIPID #### [facility] [address] [place] [address] Dr. Kylee Bunch Color (U) LT. YELLOW Normal YELLOW [facility] Comment on above: Performed By: #### C MP, LIPID #### [facility] [address] [place] [address] Dr. Kylee Bunch ERUAHD A micrscopic examina tion will be performed if indicated. Normal [facility] Comment on above: Performed By: #### C MP, LIPID #### [facility] [address] [place] [address] Dr. Kylee Bunch Hemoglobin Ql (U) TRACE-INTACT Abnormal NEGATIVE [facility] Comment on above: Performed By: #### C MP, LIPID #### [facility] [address] [place] [address] Dr. Kylee Bunch Ketones Ql (U) 15 mg/dl Abnormal NEGATIVE [facility] Comment on above: Performed By: #### C MP, LIPID #### [facility] [address] [place] [address] Dr. Kylee Bunch LEUKOCYTES Negative Normal NEGATIVE [facility] Comment on above: Performed By: #### C MP, LIPID #### [facility] [address] [place] [address] Dr. Kylee Bunch Nitrite Ql (U) Negative Normal NEGATIVE [facility] Comment on above: Performed By: #### C MP, LIPID #### [facility] [address] [place] [address] Dr. Kylee Bunch pH (U) 5.5 [pH] Normal 5-9 [facility] Comment on above: Performed By: #### C MP, LIPID #### [facility] [address] [place] [address] Dr. Kylee Bunch SPEC GRAVITY 1.015 Normal 1.005-<=1. 025 [facility] Comment on above: Performed By: #### C MP, LIPID #### [facility] [address] [place] [address] Dr. Kylee Bunch UA PROTEIN Negative Normal NEGATIVE/ TRACE [facility] Comment on above: Performed By: #### C MP, LIPID #### [facility] [address] [place] [address] Dr. Kylee Bunch UR MICRO IND INDICATED Normal [facility] Comment on above: Performed By: #### C MP, LIPID #### [facility] [address] [place] [address] Dr. Kylee Bunch Urobilinogen Qn (U) 0.2 {Gemini'U}/dL Normal 0.2 - 1. 0 [facility] Comment on above: Performed By: #### C MP, LIPID #### [facility] [address] [place] [address] Dr. Kylee Bunch LIPASEon 01-02-2022 Lipase [Catalytic activity/Vol] 9.0 U/L Critically low 73.0-393.0 [facility] Comment on above: Performed By: #### L IPA, TRE, LIVER, BMP #### [facility] [address] [place] [address] Dr. Kylee Bunch LIVER PROFILEon 01-02-2022 Albumin [Mass/Vol] 3.3 g/dL Critically low 3.4-5.0 [facility] Comment on above: Performed By: #### L IPA, TRE, LIVER, BMP #### [facility] [address] [place] [address] Dr. Kylee Bunch Albumin/Globulin [Mass ratio] 0.9 {ratio} Normal [facility] Comment on above: Performed By: #### L IPA, TRE, LIVER, BMP #### [facility] [address] [address] [address] Kylee Bunch ALP [Catalytic activity/Vol] 116 U/L Normal 46-116 [facility] Comment on above: Performed By: #### L IPA, TRE, LIVER, BMP #### [facility] [address] [address] [address] Kylee Bunch ALT [Catalytic activity/Vol] 21 U/L Normal 16-63 [facility] Comment on above: Performed By: #### L IPA, TRE, LIVER, BMP #### [facility] [address] [place] [address] Dr. Kylee Bunch AST [Catalytic activity/Vol] 24 U/L Normal 15-37 [facility] Comment on above: Performed By: #### L IPA, TRE, LIVER, BMP #### [facility] [address] [place] [address] Dr. Kylee Bunch BILI, CONJUGATED 0.1 mg/dL Normal 0.0-0.2 [facility] Comment on above: Performed By: #### L IPA, TRE, LIVER, BMP #### [facility] [address] [place] [address] Dr. Kylee Bunch Bilirubin [Mass/Vol] 0.6 mg/dL Normal 0.2-1.0 [facility] Comment on above: Performed By: #### L IPA, TRE, LIVER, BMP #### [facility] [address] [place] [address] Dr. Kylee Bunch Globulin (S) [Mass/Vol] 3.6 g/dL Normal [facility] Comment on above: Performed By: #### L IPA, TRE, LIVER, BMP #### [facility] [address] [place] [address] Dr. Kylee Bunch Protein [Mass/Vol] 6.9 g/dL Normal 6.4-8.2 [facility] Comment on above: Performed By: #### L IPA, TRE, LIVER, BMP #### [facility] [address] [address] [address] Kylee Bunch Laboratory - Chemistry and C hemistry - challengeon 01-02-2022 Glucose [Mass/Vol] 223 mg/dL [facility] [employer] Comment on above: The ADA and AACC rec ommend providing the estimated average glucose result to permit better patient understanding of their HBA1c result. Glucose [Mass/Vol] 227 mg/dL High 75 - 110 mg/dL [facility] Glucose [Mass/Vol] 290 mg/dL High 75 - 110 mg/dL [facility] Glucose [Mass/Vol] 300 mg/dL High 75 - 110 mg/dL [facility] Glucose [Mass/Vol] 323 mg/dL High 75 - 110 mg/dL [facility] [employer] Anion gap [Moles/Vol] 12 mmol/L 9 - 17 mmol/L [facility] [employer] Calcium [Mass/Vol] 8.6 mg/dL 8.6 - 10. 4 mg/dL [facility] [employer] Chloride [Moles/Vol] 96 mmol/L Low 98 - 10 7 mmol/L [facility] [employer] CO2 [Moles/Vol] 22 mmol/L 20 - 31 mmol/L [facility] [employer] Creatinine [Mass/Vol] 0.81 mg/dL 0.70 - 1.20 mg/dL [facility] GFR/1.73 sq M.predicted MDRD (S/P/Bld) [Vol rate/Area] [facility] Comment on above: Average GFR for 70 o r more years old: 75 mL/min/1.73sq m Chronic Kidney Disease: <60 mL/min/1.73sq m Kidney failure: <15 mL/min/1.73sq m eGFR calculated using average adult body mass. Additional eGFR calculator available at: http://www.[employer]/multiple_crcl_2012.htm Glucose [Mass/Vol] 452 mg/dL Critically high 70 - 9 9 mg/dL [facility] [employer] Potassium [Moles/Vol] 4.1 mmol/L 3.7 - 5.3 mmol/L [facility] [employer] Sodium [Moles/Vol] 130 mmol/L Low 135 - 144 mmol/L [facility] Urea nitrogen (BldV) [Mass/Vol] 19 mg/dL 8 - 23 mg/dL [facility] Albumin [Mass/Vol] 3.6 g/dL 3.5 - 5.2 g/dL [facility] Albumin/Globulin [Mass ratio] 1.3 {ratio} [facility] ALP (Bld) [Catalytic activity/Vol] 100 U/L 40 - 129 U/L [facility] ALT [Catalytic activity/Vol] 15 U/L 5 - 41 U/L [facility] AST [Catalytic activity/Vol] 18 U/L <40 [facility] Bilirubin [Mass/Vol] 0.45 mg/dL 0.3 - 1 .2 mg/dL [facility] Bilirubin.indirect [Mass/Vol] 0.17 mg/dL <0.31 [facility] Free PSA/Total PSA [Mass fraction] 6.4 g/dL 6.4 - 8.3 g/dL [facility] Glucose [Mass/Vol] 433 mg/dL Critically high 75 - 1 10 mg/dL [facility] Comment on above: Critical Noted Laboratory - Coagulationon 0 01-02-2022 INR Coag (Bld) [Relative time] 1.2 {INR} [facility] Comment on above: Therapeutic Range: Moderate Anticoagulant Intensity: INR = 2.0-3.0 High Anticoagulant Intensity: INR = 2.5-3.5 PT Coag (PPP) [Time] 12.5 s High [facility] Laboratory - Hematology and Cell countson 01-02-2022 HbA1c (Bld) [Mass fraction] 9.4 % High 4.0 - 6.0 % [facility] Basophils (Bld) [#/Vol] 0.00 10*3/uL [facility] Basophils/100 WBC (Bld) 0 % 0 - 2 % [facility] Eosinophils/100 WBC (Bld) 0 % Low 1 - 4 % [facility] Hematocrit (Bld) [Volume fraction] 38.9 % Low 40.7 - 50.3 % [facility] Hemoglobin (Bld) [Mass/Vol] 12.9 g/dL Low 13.0 - 17.0 g/dL [facility] Immature granulocytes/100 WBC (Bld) 0 % 0 [facility] Lymphocytes/100 WBC (Bld) 2 % Low 24 - 43 % [facility] MCH (RBC) [Entitic mass] 26.9 pg 25.2 - 33.5 pg [facility] MCHC (RBC) [Mass/Vol] 33.2 g/dL 28.4 - 34.8 g/dL [facility] MCV (RBC) [Entitic vol] 81.2 fL Low 82.6 - 102.9 fL [facility] Monocytes/100 WBC (Bld) 3 % 3 - 12 % [facility] Morphology Walter (Bld) [Interp] ANISOCYTOSIS PRESENT [facility] Platelet distribution width (Bld) [Ratio] 18.3 % High 11.8 - 14.4 % [facility] Platelet mean volume (Bld) [Entitic vol] 12.4 fL 8.1 - 13.5 fL [facility] Platelets (Bld) [#/Vol] 324 10*3/uL [facility] RBC (Bld) [#/Vol] 4.79 10*6/uL 4.21 - 5.77 m/uL [facility] Segmented neutrophils/100 WBC (Bld) 95 % High 36 - 65 % [facility] WBC (Bld) [#/Vol] 20.5 10*3/uL High [facility] Lactate, Sepsison 01-02-2022 Lactic Acid,Sep Wbld 1.7 mmol/L Normal 0.5-1.9 [facility] Comment on above: Performed By: #### C DP, MELVIN, BMPX, IPF #### [facility] [address] [place] [address] [place]: Francisco J Fonseca MD Liver Profileon 01-02-2022 Albumin [Mass/Vol] 3.6 g/dL Normal 3.5-5.2 [facility] Comment on above: Performed By: #### C DP #### [address] [address] [place]: Francisco J Fonseca MD Albumin/Glob Ratio 1.3 Normal 1.0-2.5 [facility] Comment on above: Performed By: #### C DP #### [address] [address] [place]: Francisco J Fonseca MD Alkaline Phos 100 U/L Normal 40-129 [facility] Comment on above: Performed By: #### C DP #### [address] [address] [place]: Francisco J Fonseca MD ALT [Catalytic activity/Vol] 15 U/L Normal 5-41 [facility] Comment on above: Performed By: #### C DP #### [address] [address] [place]: Francisco J Fonseca MD AST [Catalytic activity/Vol] 18 U/L Normal <40 [facility] Comment on above: Performed By: #### C DP #### [address] [address] [place]: Francisco J Fonseca MD Bilirubin [Mass/Vol] 0.45 mg/dL Normal 0.3-1.2 [facility] Comment on above: Performed By: #### C DP #### [address] [address] [place]: Francisco J Fonseca MD Bilirubin, Indirect 0.28 mg/dL Normal 0.00-1.00 [facility] Comment on above: Performed By: #### C DP #### [address] [address] [place]: Francisco J Fonseca MD Bilirubin.indirect [Mass/Vol] 0.17 mg/dL Normal <0.31 [facility] Comment on above: Performed By: #### C DP #### [facility] [address] [place] [address] [place]: Francisco J Fonseca MD Protein [Mass/Vol] 6.4 g/dL Normal 6.4-8.3 [facility] Comment on above: Performed By: #### C DP #### [facility] [address] [place] [address] [place]: Francisco J Fonseca MD No Panel Informationon 01-02 Interpretation and review of laboratory results Abnormal [facility] [employer] Interpretation and review of laboratory results Abnormal [facility] [place] Enteric tube needs t o be advanced 10 cm. [facility] EXAMINATION: ONE SUPINE XRAY VIEW(S) [...] to be advanced at least 10 cm. [facility] Eulogio Winslow MD - 01/02/2022 [...] tube needs to be advanced 10 cm. [email or web address] Work Phone: Interpretation and review of laboratory results Abnormal [facility] Interpretation and review of laboratory results Abnormal [facility] Radiology Study observation (narrative) [facility] Work Phone: Absolute Eos # 0.00 [facility] Absolute Immature Granulocyte 0.00 [facility] Absolute Lymph # 0.41 Low [facility] Absolute [place] # 0.62 [facility] Interpretation and review of laboratory results Abnormal [facility] NRBC Automated 0.0 0.0 per 100 WBC [facility] Segs Absolute 19.47 High [facility] Interpretation and review of laboratory results Abnormal [facility] Interpretation and review of laboratory results Abnormal [facility] Lactic Acid, Sepsis, Whole Blood 1.7 mmol/L 0.5 - 1.9 mmol/L [facility] GFR >60 >60 mL/min [facility] GFR Non- >60 >60 mL/min [facility] Interpretation and review of laboratory results Abnormal [facility] Bilirubin, Indirect 0.28 mg/dL 0.00 - 1.00 mg/dL [facility] Interpretation and review of laboratory results Abnormal [facility] No Panel InformationOrdered By: Eulogio Winslow on 01-02-2022 [facility] Work Phone: POINT OF CARE GLUCOSEon 12-11 Glucose [Mass/Vol] 408 mg/dL Critically high 74-106 [facility] Comment on above: Performed By: #### P OCGLUC #### [facility] [facility] [address] [address] [address] Kylee Bunch PROF CHEM 8 (BAS METB)on Anion gap [Moles/Vol] 16.4 mmol/L Normal [facility] Comment on above: Performed By: #### L IPA, TRE, LIVER, BMP #### [facility] [address] [address] [address] Kylee Bunch Calcium [Mass/Vol] 8.8 mg/dL Normal 8.5-10.1 [facility] Comment on above: Performed By: #### L IPA, TRE, LIVER, BMP #### [facility] [address] [address] [address] Kylee Bunch Chloride [Moles/Vol] 96 mmol/L Critically low 98-107 [facility] Comment on above: Performed By: #### L IPA, TRE, LIVER, BMP #### [facility] [address] [address] [address] Kylee Bunch CO2 [Moles/Vol] 25.1 mmol/L Normal 21.0-32.0 [facility] Comment on above: Performed By: #### L IPA, TRE, LIVER, BMP #### [facility] [address] [address] [address] Kylee Bunch Creatinine [Mass/Vol] 1.22 mg/dL Normal 0.70-1.30 [facility] Comment on above: Performed By: #### L IPA, TRE, LIVER, BMP #### [facility] [address] [address] [address] Kylee Bunch EGFR-AF SERBIAN >60 Normal >=60 [facility] Comment on above: Performed By: #### L IPA, TRE, LIVER, BMP #### [facility] [address] [address] [address] Kylee Bunch EGFR-NON AF SERBIAN 57 mL/min/1.73m2 Critically low >=60 [facility] Comment on above: Performed By: #### L IPA, TRE, LIVER, BMP #### [facility] [address] [address] [address] Kylee Bunch Glucose [Mass/Vol] 579 mg/dL Critically high 74-106 [facility] Comment on above: Result Comment: repe ated Performed By: #### L IPA, TRE, LIVER, BMP #### [facility] [address] [address] [address] Kylee Bunch Potassium [Moles/Vol] 4.5 mmol/L Normal 3.5-5.1 [facility] Comment on above: Performed By: #### L IPA, TRE, LIVER, BMP #### [facility] [address] [address] [address] Kylee Bunch Sodium [Moles/Vol] 133 mmol/L Critically low 136-145 [facility] Comment on above: Performed By: #### L IPA, TRE, LIVER, BMP #### [facility] [address] [place] [address] Dr. Kylee Bunch Urea nitrogen [Mass/Vol] 19.0 mg/dL Critically high 7.0-18.0 [facility] Comment on above: Performed By: #### L IPA, TRE, LIVER, BMP #### [facility] [address] [place] [address] Dr. Kylee Bunch Urea nitrogen/Creatinine [Mass ratio] 15.6 mg/mg Normal [facility] Comment on above: Performed By: #### L IPA, TRE, LIVER, BMP #### [facility] [address] [place] [address] Dr. Kylee Bunch PTon 01-02-2022 INR Coag (PPP) [Relative time] 1.2 {INR} Normal [facility] Comment on above: Result Comment: Therapeutic Range: Moderate Anticoagulant Intensity: INR = 2.0-3.0 High Anticoagulant Intensity: INR = 2.5-3.5 Performed By: #### C DP, MELVIN, BMPX, IPF #### [facility] [employer] [address] [place] [address] [place]: Francisco J Fonseca MD PT Coag (PPP) [Time] 12.5 s High 9.1-12.3 [facility] Comment on above: Performed By: #### C DP, MELVIN, BMPX, IPF #### [facility] [address] [place] [address] [place]: Francisco J Fonseca MD URINE MICROSCOPIC ONLYon BACTERIA NONE SEEN Normal NONE SEEN [facility] Comment on above: Performed By: #### C MP, LIPID #### [facility] [address] [place] [address] Dr. Kylee Bunch Bacteria identified Cx Nom (U) NOT INDICATED Normal [facility] Comment on above: Performed By: #### C MP, LIPID #### [facility] [address] [place] [address] Dr. Kylee Bunch CAST NONE SEEN Normal NONE SEEN [facility] Comment on above: Performed By: #### C MP, LIPID #### [facility] [address] [place] [address] Dr. Kylee Bunch Crystals LM Nom (Urine sed) NONE SEEN Normal NONE SEEN [facility] Comment on above: Performed By: #### C MP, LIPID #### [facility] [address] [place] [address] Dr. Kylee Bunch Epithelial cells LM Ql (Urine sed) RARE Normal NONE SEEN /RARE [facility] Comment on above: Performed By: #### C MP, LIPID #### [facility] [address] [place] [address] Dr. Kylee Bunch MUCOUS NONE SEEN Normal NONE SEEN [facility] Comment on above: Performed By: #### C MP, LIPID #### [facility] [address] [place] [address] Dr. Kylee Bunch RBC 0-2 Normal 0-2 [facility] Comment on above: Performed By: #### C MP, LIPID #### [facility] [address] [place] [address] Dr. Kylee Bunch WBC NONE SEEN Normal NONE SEEN [facility] Comment on above: Performed By: #### C MP, LIPID #### [facility] [address] [place] [address] Dr. Kylee Bunch Reminderson 06-21-2019 Reminders - [...] going to have another colonoscopy mlc Normal [facility] HOSPon 06-23-2018 HOSP Patient Update (GENSMN) RANCHOASHWINI ([id number]) 1935 MDate Time Provider Wivyrbqhbu66/13/18 MARIE JULIAN During your visit today, we recorded the following information about you:Allergies As of Date: 06/23/2018(No Known Allergies)Date Reviewed: 06/14/2018Reviewed by: Marie Julian - Fully AssessedReason for Visit: CURE 08/08/18 [Other]Primary Visit Diagnosis:Preoperative examination [Z01.818]Order(s):CONSULT TO [facility] [5429107] Order #: [id number]: 1 TYPE + SCREEN,30 DAY [JTKNHA05] Order #: [id number] FUTURE CONFIRM BLOOD TYPE [SQCONABO] Order #: [id number] FUTURE CBC + DIFF [SQCBCDIF] Order #: [id number] FUTURE COMP METABOLIC PANEL [SQCMP] Order #: [id number] FUTURE XR CHEST 2V FRONTAL/LAT [5174841] Order #: [id number] FUTURE ECG COMPLETE W INTERPRETATION [ECG01] Order #: [id number] FUTURE REFER FOR ADMIT INTERVIEW [7414648] Order #: [id number] CONSULT TO GERIATRICS [90] Order #: [id number]: 1 CONSULT TO PATIENT EDUCATION [19990815] Order #: [id number]: 1 NITISH WHAT TO EXPECT DURING YOUR HOSPITAL STAY [2701506] Order #: [id number]: 1 NITISH PT ED GENERAL SURG [4207150] Order #: [id number]: 1 NITISH PT ED MISC [9044325] Order #: [id number]: 1 SURGICAL REQUEST - ELECTIVE [5472922] Order #: [id number]: 1Prescriptions as of 06/23/2018 Sig: ASPIRIN 81 MG TABLET,DELAYED * Take 81 mg by mouth once parul* CETIRIZINE 10 MG TABLET Take 10 mg by mouth once parul* CHOLECALCIFEROL (VITAMIN D3) * Take 2,000 Units by mouth onc* CENTRUM SILVER ORAL Take by mouth once daily. PROBIOTIC-10 ORAL Take by mouth once daily. FZSLVA-FSPUYHST-DIGNOMB 24,00* Take 2 capsules by mouth thre* LUTEIN-ZEAXANTHIN 25 MG-5 MG * Take by mouth once daily.Problem List As Of Date 06/23/2018 Noted Resolved IPMN (intraductal papillary mucinous neoplasm) *INVALID FOR* More...Follow-up and Disposition History RecordedEncounter Number: [id number] Status:Closed by BREANA FANG on 06/23/18 [facility] CNOVon 06-14-2018 CNOV Office Visit (LINDA) ASHWINI VICKERS ([id number]) 1935 [facility] Hhcgjywnrg84/4/18 9:30 AM MARIE JULIAN During your visit today, we recorded the following information about you: Temperature Pulse Blood pressure Weight 98.4 degrees 53/minute 182/84 70 kg Height 1.778 mMisty Jumana Aragon 06/14/2018 9:25 AM SignedWhat is the reason for your visit today? CONSULTWho is your referring physician? Dr. Castro.Marie you having poor oral intake? NOHave you had unintentional weight loss of 15 lbs/7 Kg in the last 3-6 months? NOBowels: regularWound: clean AND dryTemperature: NoDrains: Steven Montes 06/14/2018 1:32 PM SignedPancreatic Cyst HANDP InitialSamuel [id number] s consult was requested by Marie Castro, [...] cells. Paucicellular specimen.Serum LabsNo results found for: GIMSM30-4 (U/mL)Date Value04/19/2018 61 No results found for: [...] he would like to pursue surgicalintervention in [place]. 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 CONSULTWho is your referring physician? Dr. Castro., Marie OttAre you having poor oral intake? NOHave you had unintentional weight loss of 15 lbs/7 Kg in the last 3-6months? NOBowels: regularWound: clean AND dryTemperature: NoDrains: NoEncounter Number: [id number] Status:Closed by MARIE JULIAN MD on 06/14/18 Normal [facility] HISTORY PHYSICALon 8 HISTORY PHYSICAL HNO ID: [id number] thor: Marie Morris: (none)Author Type: PhysicianType: HANDPFiled: [...] and answering all of their questionsSIGNATURE:Andrei Julian MDPawan surgeryPager: [phone]: Normal [facility] HISTORY PHYSICAL HNO ID: [id number] thor: Josie Castellon (Res) GamaleldinService: (none)Author Type: ResidentType: HANDPFiled: 06/14/2018 1:32 PMNote Text:Pancreatic Cyst HANDP InitialLoma Linda University Medical Centerarmin [id number] s consult was requested by Marie Castro, for evaluation ofpancreatic cyst(s) My final recommendations will be communicated to therelea regional medical centering health care provider by way of the shared medical record or [facility] services.Brown Vickers is a 83 year old [...] cells. Paucicellular specimen.Serum LabsNo results found for: TIMRC63-3 (U/mL)Date Value04/19/2018 61 No results found for: [...] would like to pursue surgical intervention in [place].We have provided him with the [place] of [place] [facility] andrecommend that the procedure should be done by an HPB surgeon. Seen with Josie Méndez MD10:21 AM06/14/2018 Normal [facility] ANES Wilma 04-27-2018 ANES POST HNO ID: [id number] thor: Guille CastilloSerstephene: (none)Author Type: AnesthesiologistType: Anesthesia PostOpFiled: 04/27/2018 9:48 AMNote Text:POST ANESTHESIA EVALUATION NOTESERVICE DATE: 04/27/2018SERVICE TIME: 50DOB: 1935Vitals:There were no vitals filed for this [...] 27, 2018 : 9:48 AM PAGER/CONTACT #: [phone] Normal [facility] Amylase,Body Fluidon 018 Amylase,Body Fluid 97547 U/L Critically abnormal See Comment [facility] Comment on above: Result Comment: (NOT [...] CLSI document C49-A. BRAD Alarcon: Clinical LaboratoryStandards [place]; 2007.3. Denice CL[facility], Chantale RC, Tyson DJ. Use of cyst fluid CEA,CA19-9, and amylase for evaluation of pancreatic lesions. ClinicalBiochemistry. 2009;42:4955-4494.This test was developed and its performance characteristicsdetermined by [facility]'s [facility] Pathology andLablakeview [facility] Medicine [place] ([facility]).It has not been cleared or approved by the FDA. [facility] is regulatedunder CLIA as qualified to perform high-complexity testing.This test is used for clinical purposes. It should not be regarded asinvestigational or for research. Performed By: #### P T, CBCDIF, HFP, TSH, CA199 ####[facility] [address] [place], [place] [phone] Fluid Type Fluid-other Normal [facility] Comment on above: Result Comment: PANC REATIC CYST FLUID Performed By: #### P T, CBCDIF, HFP, TSH, CA199 ####[facility] [address]CRep[address], [place] [phone] CEA, Fluidon 04-27-2018 CEA, Fluid 24.7 ng/mL Normal [facility] Comment on above: Result Comment: (NOT E)INTERPRETIVE INFORMATION: Carcinoembryonic Antigen, FluidThe Jacques CEA electrochemiluminescent immunoassay was used.Results obtained with different assay methods or kits cannot beused interchangeably. The CEA assay value, regardless of level,should not be interpreted as evidence for the presence or absenceof malignant disease.For information on body fluid reference ranges and/or interpretiveguidance visit [email or web address]/Test developed and characteristics determined by [facility]. See Compliance Statement B: [employer]/CSPerformed by [employer],[address] ManuelDA[facility],[place] [address] ddb.[employer], Oswaldo Tellez MD, Lab. Director Performed By: #### P T, CBCDIF, HFP, TSH, CA199 ####[facility]levelW[address], [place] [phone] Source, Fluid Fluid-other Normal [facility] Comment on above: Result Comment: PANC REATIC CYST FLUID Performed By: #### P T, CBCDIF, HFP, TSH, CA199 ####[facility], [place] [phone] Glucose, Body Fluidon 2017 Glucose, Body Fluid <2 Critically abnormal See Comment [facility] Comment on above: Result Comment: Resu lt rechecked. Performed By: #### P T, CBCDIF, HFP, TSH, CA199 ####[facility], [place] [phone] CA 19-9on 04-19-2018 CA 19-9 61 U/mL High <36 [facility] Comment on above: Result Comment: Test analyzed by the Bk DxI method. Performed By: #### P T, CBCDIF, HFP, TSH, CA199 ####[facility], [place] [phone] CBC and Differentialon 04-19 Abs Baso <0.03 Normal <0.11 [facility] Comment on above: Performed By: #### P T, CBCDIF, HFP, TSH, CA199 ####[facility], [place] [phone] Abs Canóvan[place] 0.52 k/uL Normal <0.87 [facility] Comment on above: Performed By: #### P T, CBCDIF, HFP, TSH, CA199 ####[facility], [place] [phone] Abs Neut 3.73 k/uL Normal 1.45-7.50 [facility] Comment on above: Performed By: #### P T, CBCDIF, HFP, TSH, CA199 ####[address] [address] [address], [place] [phone] Absolute nRBC <0.01 Normal <0.01 [facility] Comment on above: Performed By: #### P T, CBCDIF, HFP, TSH, CA199 ####[address] [address] [address], [place] [phone] Basophils/100 WBC Auto (Bld) 0.3 % Normal [facility] Comment on above: Performed By: #### P T, CBCDIF, HFP, TSH, CA199 ####[address] [address] [address] [phone] DTYPE Auto Diff Normal [facility] Comment on above: Performed By: #### P T, CBCDIF, HFP, TSH, CA199 ####[address] [address] [address], [place] [phone] Eosinophils Auto #/vol (Bld) 0.09 10*3/uL Normal <0.46 [facility] Comment on above: Performed By: #### P T, CBCDIF, HFP, TSH, CA199 ####[facility] [phone] Eosinophils/100 WBC Auto (Bld) 1.5 % Normal [facility] Comment on above: Performed By: #### P T, CBCDIF, HFP, TSH, CA199 ####[address] [address] [address], [place] [phone] Erythrocyte distribution width Auto Ratio (RBC) 15.0 % Normal 11.5-15.0 [facility] Comment on above: Performed By: #### P T, CBCDIF, HFP, TSH, CA199 ####[address] [address] [address] [phone] Hematocrit Auto Volume Fraction (Bld) 44.6 % Normal 39.0-51.0 [facility] Comment on above: Performed By: #### P T, CBCDIF, HFP, TSH, CA199 ####[address] [place] [phone] Hemoglobin mass conc (Bld) 13.7 g/dL Normal 13.0-17.0 [facility] Comment on above: Performed By: #### P T, CBCDIF, HFP, TSH, CA199 ####[address] [phone] Lymphocytes Auto #/vol (Bld) 1.79 10*3/uL Normal 1.00-4.00 [facility] Comment on above: Performed By: #### P T, CBCDIF, HFP, TSH, CA199 ####[address] [phone] Lymphocytes/100 WBC Auto (Bld) 29.0 % Normal [facility] Comment on above: Performed By: #### P T, CBCDIF, HFP, TSH, CA199 ####[address] [phone] MCH Auto Entitic mass (RBC) 26.7 pG Normal 26.0-34.0 [facility] Comment on above: Performed By: #### P T, CBCDIF, HFP, TSH, CA199 ####[address] [place], [place] [phone] MCHC Auto mass conc (RBC) 30.7 g/dL Normal 30.5-36.0 [facility] Comment on above: Performed By: #### P T, CBCDIF, HFP, TSH, CA199 ####[facility], [place] [phone] MCV Auto Entitic volume (RBC) 86.8 fL Normal 80.0-100.0 [facility] Comment on above: Performed By: #### P T, CBCDIF, HFP, TSH, CA199 ####[address] [address] [address], [place] [phone] Monocytes/100 WBC Auto (Bld) 8.4 % Normal [facility] Comment on above: Performed By: #### P T, CBCDIF, HFP, TSH, CA199 ####[address] [address] [address], [place] [phone] Neutrophils/100 WBC Auto (Bld) 60.8 % Normal [facility] Comment on above: Performed By: #### P T, CBCDIF, HFP, TSH, CA199 ####[address] [address] [address], [place] [phone] NRBCs 0.0 /100 WBC Normal 0 [facility] Comment on above: Performed By: #### P T, CBCDIF, HFP, TSH, CA199 ####[facility], [place] [phone] Platelet mean volume Auto Entitic volume (Bld) 10.6 fL Normal 9.0-12.7 [facility] Comment on above: Performed By: #### P T, CBCDIF, HFP, TSH, CA199 ####[facility], [place] [phone] Platelets Auto #/vol (Bld) 130 10*3/uL Low 150-400 [facility] Comment on above: Result Comment: Resu lt checked and verifiedNo clot detected. Performed By: #### P T, CBCDIF, HFP, TSH, CA199 ####[address] [place] [address] [address], [place] [phone] RBC Auto #/vol (Bld) 5.14 10*6/uL Normal 4.20-6.00 [facility] Comment on above: Performed By: #### P T, CBCDIF, HFP, TSH, CA199 ####[facility] [address] [place], [place] [phone] WBC Auto #/vol (Bld) 6.17 10*3/uL Normal 3.70-11.00 [facility] Comment on above: Performed By: #### P T, CBCDIF, HFP, TSH, CA199 ####[facility] [address] [place], [place] [phone] CNOVon 04-19-2018 CNOV Office Visit (GASTMN) ASHWINI VICKERS ([id number]) 1935 [facility] Gwgvotkgqs17/9/18 7:40 AM MARINO POE GASTMN During your visit today, we recorded the following information about you: Temperature Pulse Blood pressure Weight 97.7 degrees 44/minute 150/68 65.7 kg Height 1.803 Gold Poe MD 04/19/2018 10:06 AM SignedNew Patient/ConsultREASON FOR VISITSamclive Vickers is a 83 year old male who is scheduled for a consult at [facility] of Marie Castro MD.PCPRobert Tru Castro MD.[facility] [address] COMPLAINTReferral for Pancreatic Cancer screeningWeight lossMy [...] heard, call me. 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 My office number is [phone] Number: [id number] Status:Closed by MARINO POE MD on 04/19/18 [facility] 04-19-2018 HOSP Patient:Julio Vickers lMRN: Height:5' [...] received? No need to getanother copy from [employer].Thanks,Rl Bonilla LPN, JACINTA 04/19/2018 12:26 PM SignedCalled pt to let him know the cd was received and no need to get a copy.Progress Notes (KIMBERLEE MAIN A30):Marino Poe MD 04/19/2018 10:06 AM SignedNew Patient/ConsultREASON FOR VISITSkary Vickers is a 83 year old male who is scheduled for a consult at [facility] of Marie Castro MD.PCPRobert Tru Castro MD.[facility] W. [facility], [address] COMPLAINTReferral for Pancreatic Cancer screeningWeight lossMy [...] discolorationSkin:no rashes, lesions, or jaundiceLymph:No abnormal adenopathyAssessmentIMPRES CHRISITNE AND PLANRapid unexplained weight loss, evolving pancreatic imaging findings suggestiveof main duct IPMN or obstructing cystic neoplasm. Plan for labs and EUS forfurther evaluation. Asked him to bring disc to appointment. Patient and familyagreeable with this plan. Questions answered.Marino Poe MDSparrow Ionia Hospital201710:36 AMPrevious VersionMarino Poe MD 04/19/2018 8:32 AM SignedExpect a call to schedule your endoscopy appointment today or tomorrow morning.If you haven't heard, call me. My office number is [phone] Normal [facility] Hepatic Functn Panelon 04-19 Albumin mass conc 4.3 g/dL Normal 3.9-4.9 [facility] Comment on above: Performed By: #### P T, CBCDIF, HFP, TSH, CA199 ####[facility] [address] [place], [place] [phone] ALP enzyme act/vol 83 U/L Normal 38-113 [facility] Comment on above: Performed By: #### P T, CBCDIF, HFP, TSH, CA199 ####[facility] [address]CRep[address], [place] [phone] ALT enzyme act/vol 12 U/L Normal 10-54 [facility] Comment on above: Performed By: #### P T, CBCDIF, HFP, TSH, CA199 ####[address] [phone] AST enzyme act/vol 18 U/L Normal 14-40 [facility] Comment on above: Performed By: #### P T, CBCDIF, HFP, TSH, CA199 ####[address] [place] [phone] Bilirubin mass conc 0.3 mg/dL Normal 0.2-1.3 [facility] Comment on above: Performed By: #### P T, CBCDIF, HFP, TSH, CA199 ####[address] [phone] Bilirubin,Conjugated <0.2 Normal <0.2 [facility] Comment on above: Performed By: #### P T, CBCDIF, HFP, TSH, CA199 ####[address] [phone] Protein mass conc 6.9 g/dL Normal 6.3-8.0 [facility] Comment on above: Performed By: #### P T, CBCDIF, HFP, TSH, CA199 ####[address] [phone] Protimeon 04-19-2018 INR Coag RelTime (Bld) 1.0 {INR} Normal 0.9-1.3 [facility] Comment on above: Result Comment: Robina min K Antagonist (VKA) Therapeutic Range: INR 2 to 3 (Target INR of 2.5)Note: For patients treated with VKA drugs, such as warfarin, the [employer] 2012 Guideline recommends [...] of 3).Ariadne GH, et al. Chest 2012, 141:7S-47SNishimeugenie RA, et al. [facility] 2017, 70: 252-289 Performed By: #### P T, CBCDIF, HFP, TSH, CA199 ####[facility] [place], [place] [phone] PT Sec 10.9 sec Normal 9.7-13.0 [facility] Comment on above: Performed By: #### P T, CBCDIF, HFP, TSH, CA199 ####[facility] [place], [place] [phone] TSHon 04-19-2018 Thyrotropin Qn 0.874 uU/mL Normal 0.400-5.50 0 [facility] Comment on above: Performed By: #### P T, CBCDIF, HFP, TSH, CA199 ####[id number] [place], [place] [id number] PROGRESSon 04-11-2018 Protein mass conc HNO ID: [id number] thor: Marino Cummings: (none)Author Type: PhysicianType: Progress NotesFiled: 04/19/2018 10:06 AMNote Text:New Patient/ConsultREASON FOR Jas Vickers is a 83 year old male who is scheduled for a consult at [facility] of Marie Castro MD.PCPRobert Tru Castro MD.[facility] Webb, [address] COMPLAINTReferral for Pancreatic Cancer screeningWeight lossMy final recommendations will be communicated back to the requestingphysician by the way of the shared medical record, fax, or via US Mail.HISTORY OF PRESENT ILLNESSThis patient has presented with several months of unexplained weight [id number] pounds. There are no gastrointestinal symptoms to [...] plan. Questionsanswered.Marino Poe MDOctober 201710:36 AM Normal [facility] CT OUTSIDE CD DICOM IMPORT - NBNRon 03-29-2018 CT OUTSIDE CD DICOM IMPORT -NBNR Images were obtained outside of [facility] [id number] Normal [facility] CT-CT abdomen pelvis wo/w co n IMPORTon 03-29-2018 CT-CT abdomen pelvis wo/w con IMPORT Images were obtained outside of [facility] [id number] Normal [facility] Vital Signs Date Time Vital Sign Value Performing Clinician Facility 10-28-2023 14:51-0400 Body height 177.8 cm DO Marie Yunk Work Phone: [facility] 10-28-2023 14:51-0400 Body mass index (BMI) [Ratio] 20.9 kg/m2 DO Marie Jamak Work Phone: [facility] 10-28-2023 14:51-0400 Body weight 66.22 kg DO Marie Jamak Work Phone: [facility] 10-28-2023 14:51-0400 Diastolic blood pressure 70 mm[Hg] DO Marie Jamak Work Phone: [facility] 10-28-2023 14:51-0400 Heart rate 64 /min DO Marie Yunk Work Phone: [facility] 10-28-2023 14:51-0400 Respiratory rate 18 /min DO Marie Yunk Work Phone: [facility] 10-28-2023 14:51-0400 SaO2% (BldA) [Mass fraction] 96 % DO Marie Jamak Work Phone: [facility] 10-28-2023 14:51-0400 Systolic blood pressure 144 mm[Hg] DO Marie Jamak Work Phone: [facility] 10-21-2023 08:36-0400 Body height 177.8 cm DO Marie Jamak Work Phone: [facility] 10-21-2023 08:36-0400 Body mass index (BMI) [Ratio] 21.2 kg/m2 DO Marie Jamak Work Phone: [facility] 10-21-2023 08:36-0400 Body weight 67.13 kg DO Marie Jamak Work Phone: [facility] 09-28-2023 10:26-0400 Body height 177.8 cm DO Marie Vaschak Work Phone: [facility] 09-28-2023 10:26-0400 Body mass index (BMI) [Ratio] 21.2 kg/m2 DO Marie Vaschak Work Phone: [facility] 09-28-2023 10:26-0400 Body weight 67.13 kg DO Marie Vaschak Work Phone: [facility] 09-27-2023 15:40-0400 Diastolic blood pressure 74 mm[Hg] DO Marie Vaschak Work Phone: [facility] 09-27-2023 15:40-0400 Heart rate 72 /min DO Maire Vaschak Work Phone: [facility] 09-27-2023 15:40-0400 Systolic blood pressure 140 mm[Hg] DO Marie Vaschak Work Phone: [facility] 09-06-2023 12:00-0500 Body temperature 98.4 [degF] DO Marie Vaschak Work Phone: [facility] 09-06-2023 12:00-0500 Diastolic blood pressure 62 mm[Hg] DO Marie Vaschak Work Phone: [facility] 09-06-2023 12:00-0500 Heart rate 67 /min DO Marie Vaschak Work Phone: [facility] 09-06-2023 12:00-0500 Respiratory rate 16 /min DO Marie Vaschak Work Phone: [facility] 09-06-2023 12:00-0500 SaO2% (BldA) [Mass fraction] 97 % DO Marie Vaschak Work Phone: [facility] 09-06-2023 12:00-0500 Systolic blood pressure 108 mm[Hg] DO Marie Vaschak Work Phone: [facility] 09-06-2023 06:00-0500 Body weight 68.2 kg DO Marie Xavichak Work Phone: [facility] 09-01-2023 15:42-0500 Body height 177.8 cm DO Marie Xavichak Work Phone: [facility] 08-16-2023 14:07-0500 Body height 177.8 cm Sammy Wolff GROUP TESTER-CUSTOMER OPERATIONS MANAGER Work Phone: [facility] 08-16-2023 14:07-0500 Body mass index (BMI) [Ratio] 20.09 kg/m2 Sammy Wolff GROUP TESTER-CUSTOMER OPERATIONS MANAGER Work Phone: [facility] 08-16-2023 14:07-0500 Body weight 63.5 kg Sammy Wolff GROUP TESTER-CUSTOMER OPERATIONS MANAGER Work Phone: [facility] 08-16-2023 14:07-0500 Diastolic blood pressure 80 mm[Hg] Sammy Wolff GROUP TESTER-CUSTOMER OPERATIONS MANAGER Work Phone: [facility] 08-16-2023 14:07-0500 Heart rate 72 /min Sammy Wolff GROUP TESTER-CUSTOMER OPERATIONS MANAGER Work Phone: [facility] 08-16-2023 14:07-0500 Systolic blood pressure 134 mm[Hg] Sammy Wolff GROUP TESTER-CUSTOMER OPERATIONS MANAGER Work Phone: [facility] 07-16-2023 22:45-0500 Diastolic blood pressure 95 mm[Hg] DO Marie Xavichak Work Phone: [facility] 07-16-2023 22:45-0500 Heart rate 69 /min DO Marie Xavichak Work Phone: [facility] 07-16-2023 22:45-0500 Respiratory rate 16 /min DO Marie Xavichak Work Phone: [facility] 07-16-2023 22:45-0500 SaO2% (BldA) [Mass fraction] 98 % DO Marie Xavichak Work Phone: [facility] 07-16-2023 22:45-0500 Systolic blood pressure 164 mm[Hg] DO Marie Jamak Work Phone: [facility] 07-16-2023 13:24-0500 Body height 177.8 cm DO Marie Jamak Work Phone: [facility] 07-16-2023 13:24-0500 Body temperature 96.7 [degF] DO Marie Xavichak Work Phone: [facility] 07-16-2023 13:24-0500 Body weight 63.95 kg DO Marie Jamak Work Phone: [facility] 05-25-2023 13:41-0500 Diastolic blood pressure 88 mm[Hg] Adrián Davis DO Work Phone: [facility] 05-25-2023 13:41-0500 Systolic blood pressure 136 mm[Hg] Adrián Davis DO Work Phone: [facility] 05-25-2023 13:37-0500 Body height 177.8 cm Adrián Davis DO Work Phone: [facility] 05-25-2023 13:37-0500 Body mass index (BMI) [Ratio] 19.51 kg/m2 Adrián Davis DO Work Phone: [facility] 05-25-2023 13:37-0500 Body weight 61.69 kg Adrián Davis DO Work Phone: [facility] 05-25-2023 13:37-0500 Heart rate 70 /min Adrián Davis DO Work Phone: [facility] 05-08-2023 10:33-0400 Diastolic blood pressure 85 mm[Hg] DO Marie Vaschak Work Phone: [facility] 05-08-2023 10:33-0400 Heart rate 97 /min DO Marie Jamak Work Phone: [facility] 05-08-2023 10:33-0400 Respiratory rate 18 /min DO Marie Vaschak Work Phone: [facility] 05-08-2023 10:33-0400 Systolic blood pressure 156 mm[Hg] DO Marie Vaschak Work Phone: [facility] 05-08-2023 05:00-0400 Body temperature 98.8 [degF] DO Marie Vaschak Work Phone: [facility] 05-08-2023 05:00-0400 SaO2% (BldA) [Mass fraction] 97 % DO Marie Vaschak Work Phone: [facility] 05-04-2023 11:00-0400 Body height 177.8 cm DO Marie Vaschak Work Phone: [facility] 05-03-2023 16:44-0400 Body weight 66.4 kg DO Marie Vaschak Work Phone: [facility] 05-03-2023 11:48-0400 Body temperature 98.1 [degF] DO Marie Vaschak Work Phone: [facility] 05-03-2023 11:48-0400 Diastolic blood pressure 77 mm[Hg] DO Marie Vaschak Work Phone: [facility] 05-03-2023 11:48-0400 Heart rate 55 /min DO Marie Vaschak Work Phone: [facility] 05-03-2023 11:48-0400 Respiratory rate 18 /min DO Marie Vaschak Work Phone: [facility] 05-03-2023 11:48-0400 SaO2% (BldA) [Mass fraction] 99 % DO Marie Vaschak Work Phone: [facility] 05-03-2023 11:48-0400 Systolic blood pressure 146 mm[Hg] DO Marie Vaschak Work Phone: [facility] 05-03-2023 05:40-0400 Body weight 67.6 kg DO Marie Xavichak Work Phone: [facility] 05-02-2023 00:00-0400 Inhaled oxygen flow rate 6 L/min DO Marie Xavichak Work Phone: [facility] 04-30-2023 15:31-0400 Body mass index (BMI) [Ratio] 18.8 kg/m2 DO Marie Xavichak Work Phone: [facility] 04-30-2023 15:25-0400 Body height 180.34 cm DO Marie Jamak Work Phone: [facility] 04-28-2023 16:32-0400 Heart rate 63 /min DO Marie Jamak Work Phone: [facility] 04-28-2023 16:24-0400 Diastolic blood pressure 83 mm[Hg] DO Marie Xavichak Work Phone: [facility] 04-28-2023 16:24-0400 Respiratory rate 18 /min DO Marie Matthew Work Phone: [facility] 04-28-2023 16:24-0400 SaO2% (BldA) [Mass fraction] 98 % DO Marie Xavichak Work Phone: [facility] 04-28-2023 16:24-0400 Systolic blood pressure 167 mm[Hg] DO Marie Xavichak Work Phone: [facility] 04-28-2023 13:34-0400 Body temperature 97.2 [degF] DO Marie Xavichak Work Phone: [facility] 04-28-2023 12:19-0400 Body height 180.34 cm DO Marie Xavichak Work Phone: [facility] 04-28-2023 12:19-0400 Body weight 64.41 kg DO Marie Xavichak Work Phone: [facility] 01-07-2022 09:35-0400 Diastolic blood pressure 95 mm[Hg] Gray Ross MD Work Phone: [email or web address] 01-07-2022 09:35-0400 Systolic blood pressure 160 mm[Hg] Gray Ross MD Work Phone: [email or web address] 01-07-2022 07:46-0400 Body temperature 97.81 [degF] Gray Ross MD Work Phone: [email or web address] 01-07-2022 07:46-0400 Heart rate 64 /min Gray Ross MD Work Phone: [email or web address] 01-07-2022 07:46-0400 Respiratory rate 15 /min Gray Ross MD Work Phone: [email or web address] 01-07-2022 07:46-0400 SaO2% (BldA) [Mass fraction] 98 % Gray Ross MD Work Phone: [email or web address] 01-03-2022 04:00-0400 Body height 177.8 cm Gray Ross MD Work Phone: [email or web address] 01-03-2022 04:00-0400 Body mass index (BMI) [Ratio] 20.81 kg/m2 Gray Ross MD Work Phone: [email or web address] 01-03-2022 04:00-0400 Body weight 65.8 kg Gray Ross MD Work Phone: [email or web address] 04-27-2018 10:48-0400 Body mass index (BMI) [Ratio] MARINO POE [facility] Encounters Encounter Date Encounter Type Care Provider Facility Start: 10-28-2023 End: 10-28-2023 ambulatory DO Marie Castro Work Phone: [facility] Work Phone: Start: 10-28-2023 End: 10-28-2023 Patient encounter procedure DO Marie Vaschak Work Phone: [facility] Work Phone: Start: 10-21-2023 End: 10-21-2023 ambulatory DO Marie Xavichak Work Phone: [facility] Work Phone: Start: 10-21-2023 End: 10-21-2023 Patient encounter procedure DO Marie Jamak Work Phone: [facility] G[facility]enter[facility] Work Phone: Start: 10-13-2023 End: 10-13-2023 ambulatory None Provider Facility:[facility] Start: 09-28-2023 End: 09-28-2023 ambulatory DO Marie Yunk Work Phone: [facility] Work Phone: Start: 09-28-2023 End: 09-28-2023 Patient encounter procedure DO Marie Jamak Work Phone: [facility] Neuro[facility] Work Phone: Start: 09-27-2023 End: 09-27-2023 ambulatory Candy Taoon Facility:[facility] Start: 09-27-2023 End: 09-27-2023 ambulatory DO Marie Jamak Work Phone: [facility] Work Phone: Start: 09-27-2023 End: 09-27-2023 Discharged Recurring DO Marie Jamak Work Phone: [facility]-Infusion Therapy - O/P Work Phone: Start: 09-24-2023 End: 09-24-2023 ambulatory Marie Jamak Facility:[facility] Start: 09-24-2023 End: 09-24-2023 ambulatory DO Marie Jamak Work Phone: [facility] Work Phone: Start: 09-24-2023 End: 09-24-2023 Patient encounter procedure DO Marie Castro Work Phone: [facility]-XRay [facility] [place] Work Phone: Start: 09-09-2023 End: 09-09-2023 ambulatory STALIN ALAMO Not Available Start: 09-06-2023 Non-patient / Non-visit DO Marie Castro Work Phone: [facility] Work Phone: Start: 08-31-2023 End: 09-06-2023 Evaluation and management of inpatient Marie Castro Facility:[facility] Start: 08-31-2023 Non-patient / Non-visit DO Marie Castro Work Phone: [facility] Work Phone: Start: 08-31-2023 End: 09-06-2023 Evaluation and management of inpatient DO Marie Castro Work Phone: [facility] Work Phone: Start: 08-30-2023 End: 08-30-2023 ambulatory MARIE CASTRO Not Available Start: 08-16-2023 End: 08-16-2023 ambulatory SAMMY WOLFF Merged With [facility] Other Start: 08-16-2023 End: 08-16-2023 Office outpatient visit 15 minutes Sammy Wolff GROUP TESTER-CUSTOMER OPERATIONS MANAGER Work Phone: [facility] Comment on above: Cardiomyopathy, isch emic (Primary Dx); ASHD (arteriosclerotic heart disease); BMI 20.0-20.9, adult; Orthopnea Start: 08-16-2023 Telephone encounter Anat JENKINS [facility] Start: 07-27-2023 End: 07-27-2023 ambulatory Marie Castro Facility:[facility] Start: 07-27-2023 End: 07-27-2023 ambulatory DO Marie Castro Work Phone: [facility] Work Phone: Start: 07-27-2023 End: 07-27-2023 Patient encounter procedure DO Marie Jamak Work Phone: [facility] Start: 07-16-2023 End: 07-17-2023 ambulatory Marie Vaschak Facility:[facility] Start: 07-16-2023 End: 07-16-2023 Admission to same day surgery center DO Marie Jamak Work Phone: [facility]-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 Work Phone: Start: 07-16-2023 End: 07-16-2023 ambulatory DO Marie Xavichak Work Phone: [facility] Work Phone: Start: 07-01-2023 ambulatory None Provider Facility: [facility] Start: 06-23-2023 End: 06-23-2023 ambulatory [facility] Start: 06-22-2023 End: 06-22-2023 ambulatory Ashwini Conrad Other [employer] Other Start: 06-22-2023 Telephone encounter [facility] Start: 06-11-2023 End: 06-11-2023 ambulatory Marie Jamak Facility:[facility] Start: 06-11-2023 End: 06-11-2023 ambulatory DO Marie Jamak Work Phone: [facility] Work Phone: Start: 06-11-2023 End: 06-11-2023 Patient encounter procedure DO Marie Jamak Work Phone: [facility] Start: 06-02-2023 End: 06-09-2023 ambulatory UNKNOWN PROVIDER Facility:[facility] Start: 05-26-2023 Telephone encounter [facility] Start: 05-26-2023 End: 05-27-2023 ambulatory DO Marie Vaschak Work Phone: [facility] Work Phone: Start: 05-26-2023 End: 05-26-2023 Patient encounter procedure DO Marie Castro Work Phone: [facility] Start: 05-25-2023 End: 05-25-[address] [facility] Ambulatory Start: 05-25-2023 End: 05-25-2023 Office consultation new/estab patient 60 min Adrián Davis DO Work Phone: [facility] Comment on above: NSTEMI (non-ST eleva robert myocardial infarction) ([facility]/HCC) (Primary Dx); Abnormal stress test; ASHD (arteriosclerotic heart disease); Essential hypertension; Diabetes mellitus type II, non insulin dependent (CMS/[facility]); Closed fracture of right hip, initial encounter ([facility]) Start: 05-21-2023 Postop follow up vis it related to original px [facility] Start: 05-21-2023 End: 05-21-2023 ambulatory Ashwini Conrad Merged With [facility] Other Start: 05-21-2023 End: 05-21-2023 Patient encounter procedure DO Marie Castro Work Phone: [facility] Start: 05-03-2023 End: 05-08-2023 Evaluation and management of inpatient Fredi Medrano Facility:[facility] Start: 05-03-2023 End: 05-08-2023 Evaluation and management of inpatient DO Marie Castro Work Phone: [facility] Work Phone: Start: 04-28-2023 End: 05-03-2023 Evaluation and management of inpatient Humberto Diaz Facility:[facility] Start: 04-28-2023 End: 05-03-2023 Evaluation and management of inpatient DO Marie Castro Work Phone: [facility] Work Phone: Start: 04-23-2023 End: 04-24-2023 ambulatory None Provider Facility:[facility] Start: 06-05-2022 End: 06-06-[address] MARIE CASTRO Facility:[facility] Start: 05-18-2022 Encounter for other specified special examinations DR MARIE CASTRO [facility] Start: 05-14-2022 End: 05-15-[address] MARIE CASTRO Facility:[facility] Start: 05-14-2022 End: 05-15-2022 Encounter for other specified special examinations DR MARIE CASTRO Facility:[facility] Start: 01-02-2022 End: 01-07-2022 Evaluation and management of inpatient PAUL Westfall [facility] Start: 01-02-2022 End: 01-07-2022 Evaluation and management of inpatient Gray Ross MD Work Phone: [id number] Comment on above: Acute gastric ulcer with perforation (HCC) (Primary Dx); Gastric perforation (HCC) Start: 01-02-2022 End: 01-02-[address] SALVADOR NARANJO Facility:[facility] Start: 06-14-2018 End: 06-15-2018 Patient encounter procedure MARIE JULIAN (FEL) [facility] Start: 04-27-2018 End: 04-27-2018 Patient encounter procedure MARINO POE [facility] Start: 04-19-2018 End: 04-20-2018 Patient encounter procedure MARINO POE [facility] Procedures Date Procedure Procedure Detail Performing Clinician Start: 09-24-2023 X-ray of cervical spine DO Marie Castro Work Phone: Start: 09-01-2023 X-ray of cervical spine DO Marie Castro Work Phone: Start: 09-01-2023 Antibody screen Ashwini Conrad Comment on above: Order Comment: Trans fuse now? Y Number of units to transfuse now? 1 Transfuse now? Y Number of units to transfuse now? 1 Transfuse now? Y Number of units to transfuse now? 1 Result Comment: PERF ORMED BY:[facility] [place] [id number] MEDICAL DIRECTORAIRAM MAST M.D. Start: 08-16-2023 FOLLOW UP IN CARDIOLOGY ADRIÁN DAVIS Start: 07-27-2023 Plain X-ray of right hip DO Marie Castro Work Phone: Start: 07-16-2023 CL PCI WINDOWS SYSTEMS ENGINEER Ea Add LAD D O Marie Castro [...] Castro Work Phone: Start: 04-30-2023 Antibody screen Ashwini Conrad Comment on above: Result Comment: PERF ORMED BY:[facility] [place], [place] [id number] MEDICAL DIRECTORAIRAM MAST M.D. Start: 04-30-2023 End: 04-30-2023 Plain X-ray of right hip DO Marie melendez Work Phone: Start: 04-30-2023 Open reduction of fr acture with internal fixation DO Marie Matthew Work Phone: Start: 04-30-2023 Plain chest X-ray DO Ro nathalia Matthew Work Phone: Start: 04-30-2023 CL [facility] Angio DO R davidmarsha Castro Work Phone: Start: 04-29-2023 Open reduction of fr acture with internal fixation DO Marie Matthew Work Phone: Start: 04-28-2023 Plain chest X-ray [...] REFLEX TO MG FOR LOW K Duncan N Francis MD Work Phone: Start: 01-03-2022 End: [...] reagent strip Paul denson DO Start: 01-03-2022 End: 01-03-2022 Assay of phosphorus inorganic Duncan Francis MD Work Phone: Start: 01-03-2022 BASIC METABOLIC PANE L W/ REFLEX TO MG FOR LOW K Duncan Francis MD Work Phone: Start: 01-03-2022 End: 01-03-2022 Glucose blood reagent strip Paul Hampton Start: 01-02-2022 Glucose blood reagent strip Paul [...] 01-02-2022 End: 01-02-2022 EGD DIAGNOSTIC ONLY Tristan Светлана Delatorre Work Phone: Start: 01-02-2022 Basic metabolic pane [...] DTaP/Tdap/Td vaccine (3 - Td or Tdap) [facility] Start: 03-18-2028 DTaP/Tdap/Td Vaccines (3 - Td or Tdap) DTaP/Tdap/Td Vaccines (3 - Td or Tdap) [facility] Start: 09-06-2023 [facility] Start: 09-06-2023 Referral to rehabilitation physician [facility] Start: 08-31-2023 Hospital admission [facility] Start: 08-31-2023 Consultation [facility] Start: 08-31-2023 Referral to wire straightening machine operator [facility] Start: 08-31-2023 Control Bleeding in Gastrointestinal Tract, Via Natural or Artificial Opening Endoscopic Control Bleeding in Gastrointestinal Tract, Via Natural or Artificial Opening Endoscopic [facility] Start: 08-31-2023 Excision of Esophagus, Via Natural or Artificial Opening Endoscopic, Diagnostic Excision of Esophagus, Via Natural or Artificial Opening Endoscopic, Diagnostic [facility] Start: 08-31-2023 Excision of Stomach, Pylorus, Via Natural or Artificial Opening Endoscopic, Diagnostic Excision of Stomach, Pylorus, Via Natural or Artificial Opening Endoscopic, Diagnostic [facility] Start: 08-16-2023 End: 08-16-2024 Basic metabolic 2000 panel - Serum or Plasma Basic Metabolic Panel Lab Routine Cardiomyopathy, ischemic Expected: 08/16/2023 (Approximate), Expires: 08/16/2024 [facility] Work Phone: Comment on above: Expected: 08/16/2023 (Approximate), Expi res: 08/16/2024 Start: 08-16-2023 End: 08-16-2024 Natriuretic peptide B [Mass/volume] in Blood B-Type Natriuretic Peptide Lab Routine Cardiomyopathy, ischemic Orthopnea Expected: 08/16/2023 (Approximate), Expires: 08/16/2024 [facility] Service Area Work Phone: Comment on above: Expected: 08/16/2023 (Approximate), Expi res: 08/16/2024 Start: 07-16-2023 End: 07-16-2023 [facility] Start: 07-13-2023 COVID-19 Vaccine (3 - Moderna series) COVID-19 Vaccine (3 - Moderna series) [facility] Start: 06-23-2023 End: 06-23-2023 Patient encounter procedure 06/23/2023 2:00 PM EST Office Visit [facility] [address] [place] [id number] Sammy Wolff, GROUP TESTER-CUSTOMER OPERATIONS MANAGER [address] [place] [address] [facility] Start: 05-07-2023 [facility] Start: 05-04-2023 Administration of prophylactic treatment [facility] Start: 05-03-2023 Hospital admission [facility] Start: 05-03-2023 Referral to clinical counter tacker [facility] Start: 05-03-2023 [facility] Start: 05-03-2023 Referral to rehabilitation physician [facility] Start: 05-02-2023 Blood chemistry [facility] Start: 05-02-2023 [facility] Start: 05-01-2023 Blood chemistry [facility] Start: 05-01-2023 [facility] Start: 04-30-2023 Referral to Kaiako Kura [facility] Start: 04-30-2023 Blood chemistry [facility] Start: 04-30-2023 End: 04-30-2023 [facility] Start: 04-29-2023 Blood chemistry [facility] Start: 04-29-2023 Lipid panel [facility] Start: 04-29-2023 [facility] Start: 04-28-2023 [facility] Start: 04-28-2023 Hospital admission [facility] Start: 04-28-2023 [facility] Start: 04-28-2023 Hospital admission [facility] Start: 04-28-2023 Consultation [facility] Start: 04-28-2023 Referral to fastener sewing machine operator [facility] Start: 04-28-2023 End: 04-28-2023 [facility] Start: 04-28-2023 Fluoroscopy of Left Heart using Low Osmolar Contrast Fluoroscopy of Left Heart using Low Osmolar Contrast [facility] Start: 04-28-2023 Fluoroscopy of Multiple Coronary Arteries using Low Osmolar Contrast Fluoroscopy of Multiple Coronary Arteries using Low Osmolar Contrast [facility] Start: 04-28-2023 Insertion of Intramedullary Internal Fixation Device into Right Upper Femur, Percutaneous Approach Insertion of Intramedullary Internal Fixation Device into Right Upper Femur, Percutaneous Approach [facility] Start: 04-28-2023 Measurement of Cardiac Sampling and Pressure, Left Heart, Percutaneous Approach Measurement of Cardiac Sampling and Pressure, Left Heart, Percutaneous Approach [facility] Start: 04-04-2022 Hemoglobin A1c measurement Diabetes: Hemoglobin A1C [facility] Start: 06-30-2021 Shingles vaccine (2 of 2) Shingles vaccine (2 of 2) [facility] Start: 01-19-2021 COVID-19 Vaccine (3 - Booster for Moderna series) COVID-19 Vaccine (3 - Booster for Moderna series) [facility] Start: 09-14-2020 Meningococcal B Vaccine (3 of 4 - Increased Risk Bexsero 2-dose series) Meningococcal B Vaccine (3 of 4 - Increased Risk Bexsero 2-dose series) [facility] Start: 1956 Urine screening for protein Diabetes: Urine Protein Screening [facility] Start: 1949 Depression Screen Depression Screen [facility] Start: 1947 Diabetic foot examination Diabetes: Foot Exam [facility] Start: 1947 Glaucoma screening Diabetes: Retinopathy Screening [facility] Start: 1947 Meningococcal B Vaccine (1 of 4 - Increased Risk) Meningococcal B Vaccine (1 of 4 - Increased Risk) [facility] Start: 1939 Meningococcal Vaccine (1 - Risk 2-dose series) Meningococcal Vaccine (1 - Risk 2-dose series) [facility] Start: 06-22-1938 HIB Vaccines (1 of 1 - Risk 1-dose series) HIB Vaccines (1 of 1 - Risk 1-dose series) [facility] Start: 1937 Annual Wellness Visit (AWV) Annual Wellness Visit (AWV) [email or web address] Start: 1937 Lipid panel Lipid Panel [facility] Start: 1937 Medicare Annual Wellness Visit Medicare Annual Wellness Visit (AWV) [facility] Start: 1937 Screening for osteoporosis Bone Density Scan [facility] Basic Metabolic Pane l w/ Reflex to MG Basic Metabolic Panel w/ Reflex to MG Lab Routine Daily until discontinued starting 01/06/2022, 2 completed [employer] Phone: Comment on above: Daily until discontinued starting 2021, 2 completed CBC W Auto Different ial panel - Blood CBC with Auto Differential Lab Routine Daily until discontinued starting 01/03/2022, 5 completed [employer] Phone: Comment on above: Daily until discontinued starting 2021, 5 completed Glucose [Mass/volume ] in Serum or Plasma POCT Glucose Point of Care Testing STAT As Needed until discontinued starting 01/02/2022 [employer] Phone: Comment on above: As Needed until discontinued starting Glucose [Mass/volume ] in Serum or Plasma POCT glucose Point of Care Testing Routine Now Then Every 4hr until discontinued starting 01/03/2022 [employer] Phone: Comment on above: Now Then Every 4hr until discontinued st arting 01/03/2022 Glucose measurement estimated from glycated hemoglobin [facility] Helicobacter pylori Ag [Presence] in Stool by Immunoassay [facility] Oxygen therapy [[facility] Data Set] Initiate Oxygen Therapy Protocol Respiratory Care Routine As Needed until discontinued starting 01/02/2022 [email or web address] Work Phone: Comment on above: As Needed until discontinued starting Patient Education [facility] Work Phone: Patient referral [facility] Work Phone: Phosphate [Mass/volu me] in Serum or Plasma Phosphorus Lab Routine Daily until discontinued starting 01/06/2022, 2 completed [employer] Phone: Comment on above: Daily until discontinued starting 2021, 2 completed Spirometry panel Incentive carolyn metry Respiratory Care Routine Every 2hr while awake until discontinued starting 01/03/2022 [employer] Phone: Comment on above: Every 2hr while awake until discontinued starting 01/03/2022 XR Cervical spine 3 Views [facility] Payers Date Payer Category Payer Unknown [id number] 2023 Self-pay [id number] 2002 Medicare MEDICARE MEDICAR E PART A AND B [id number] 2002-Present [address] [place] [address] [id number]. [id number] 1959 Medicare [id number] [id number]. [id number] 1959 Unknown [id number] 1.2.840.777959.1.13.239.2.7.3. [id number] 1937 Unknown [id number] 2.16.840.1.725320.3.579.2.175 1937 Unknown [id number] 2.16.840.1.950799.3.579.2.593 1937 Unknown [id number] 2.16.840.1.897872.3.579.2.593 1937 Unknown [id number] 2.16.840.1.025489.3.579.2.593 1937 Unknown [id number] 2.16.840.1.005590.3.579.2.732 1937 Unknown [id number] 2.16.840.1.825603.3.579.2.1259 1937 Unknown [id number] 2.16.840.1.576079.3.579.2.1259 1937 Unknown [id number] 2.16.840.1.446952.3.579.2.1259 1937 Unknown [id number] 2.16.840.1.556351.3.579.2.1259 1937 Unknown [id number] 2.16.840.1.109604.3.579.2.718 1937 Unknown [id number] 2.16.840.1.135189.3.579.2.718 1937 Unknown [id number] 2.16.840.1.834259.3.579.2.718 1937 Unknown [id number] 2.16.840.1.572354.3.579.2.1244 1937 Unknown [id number] 2.16.840.1.984615.3.579.2.124 1937 Unknown [id number] 2.16.840.1.619869.3.579.2.1244 Unknown [id number] 2.16.840.1.720462.3.579.2.531 Unknown [id number] 2.16.840.1.545326.3.579.2.531 Unknown [id number] 2.16.840.1.200939.3.579.2.531 Unknown [id number] 2.16.840.1.447144.3.579.2.531 Unknown [id number] 2.16.840.1.842764.3.579.2.531 Unknown [id number] 2.16.840.1.096014.3.579.2.531 Unknown [id number] 2.16.840.1.340902.3.579.2.531 Unknown [id number] 2.16.840.1.858190.3.579.2.531 Unknown [id number] 2.16.840.1.363888.3.579.2.531 Social History Date Type Detail Facility Start: 01-04-2022 End: 10-28-2023 Tobacco smoking status IDIS Ex-smoker [email or web address] End: 08-09-2022 History of tobacco use Cigarette Smoker [employer] Phone: Start: 01-04-2022 End: 08-16-2023 Tobacco use and exposure Smokeless tobacco non-user [employer] Phone: Start: 01-05-2022 Alcohol intake Ex-drinker (finding) [employer] Phone: Start: 1935 Sex Assigned At Not on file B ON [employer] Phone: Start: 12-24-2021 End: 08-16-2023 Exposure to SARS-CoV-2 (event) Not sure [email or web address] Start: 04-28-2023 End: 10-21-2023 Tobacco smoking status [facility] Current some day smoker [facility] Start: 1935 Sex Assigned At Male F [facility] Start: 05-25-2023 End: 02-05-2024 Sex Assigned At Merged With [facility] [employer] Other Start: 05-25-2023 End: 08-16-2023 Alcohol intake Current drinker of alcohol (finding) [facility] Work Phone: Start: 05-25-2023 End: 08-16-2023 Alcohol intake [facility] Work Phone: Start: 07-16-2023 End: 08-09-2022 Tobacco smoking status IDIS Smoker (finding) [facility] Medical Equipment Procedure Code Equipment Code Equipment Origin al Text Equipment Identifier Dates ORIF, hip Orthopaedic bone screw, non-bioabsorbable, non-sterile [id number] FDA Start: 04-30-2023 ORIF, hip Femur nail, sterile [id number] FDA Start: 04-30-2023 ORIF, hip Spiral blade [id number] FDA Start: 04-30-2023 CL STENT MARK FRONTIER [...] is Pro gressing Toward Baseline [facility] Work Phone: 07-16-2023 Functional status Patient at Baseline [facility] Work Phone: 05-08-2023 Functional status Patient is Pro gressing Toward Baseline [facility] Work Phone: 05-03-2023 Functional status Patient is Pro gressing Toward Baseline [facility] Work Phone: 04-28-2023 Functional status Patient Not at Baseline [facility] Work Phone: Mental Status Date Assessment Result Facility 09-06-2023 Cognitive function Cognitive Sta tus Patient at Baseline [facility] Work Phone: 07-16-2023 Cognitive function Cognitive Sta tus Patient at Baseline [facility] Work Phone: 05-08-2023 Cognitive function Cognitive Sta tus Patient is Progressing Toward Baseline [facility] Work Phone: 05-03-2023 Cognitive function Cognitive Sta tus Patient is Progressing Toward Baseline [facility] Work Phone: 04-28-2023 Cognitive function Cognitive Sta tus Patient at Baseline [facility] Work Phone: Clinical Notes 01-07-2022 to [...] and 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 pylori, patient completed quadruple therapy, he has been on Protonix 40 mg twice daily since the EGD. -Will arrange for EGD to assess ulcer healing and to confirm H. pylori eradication. -I discussed with the patient possible Lewis's diagnosis and recommended EGD every 3 to 5 years. 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 He will follow up with primary Cardiology next week [facility] Work Phone: 1(504) 901-729002-05-2024 Miscellaneous Notes* Assessment & Plan Note - [...] Problem(s): ASHD (arteriosclerotic heart disease) Jun 2023 [facility] presented due to mechanical fall. Incidental troponin elevations Echo EF 40-45% Cath: two-vessel disease; ef 40% anterior hypokinesis Elective PCI: Jul LAD: unsuccessful attempt - WINDOWS SYSTEMS ENGINEER oDiag PCI/Mark 3.5 x 18mm Daily activity < 4 METs documented in this encounterLake[facility] Work Phone: [phone]) 674-353702-05-2024 Evaluation + Plan note* Assessment & Plan Note - JAMIE Miramontes - 08/16/2023 2:37 PM ESTAssociated Problem(s): ASHD (arteriosclerotic heart disease) Jun 2023 [facility] presented due to mechanical fall. Incidental troponin elevations Echo EF 40-45% Cath: two-vessel disease; ef 40% anterior hypokinesis Elective PCI: Jul LAD: unsuccessful attempt - WINDOWS SYSTEMS ENGINEER oDiag PCI/Inman 3.5 x 18mm Daily activity < 4 METs [facility] Work Phone: 1([phone]) 590-332302-05-2024 History of Present illness Narrative* JAMIE Miramontes [...] been scheduled to date. Will be seeking [facility] primary fastener sewing machine operator. Patient reports that overall has complaint(s) [...] to Plavix. Will schedule follow-up with primary fastener sewing machine operator Dr. Perez next week. Review of [...] Assessment: ASHD (arteriosclerotic heart disease) Jun 2023 [facility] presented due to mechanical fall. Incidental troponin elevations Echo EF 40-45% Cath: two-vessel disease; ef 40% anterior hypokinesis Elective PCI: Jul LAD: unsuccessful attempt - WINDOWS SYSTEMS ENGINEER oDiag PCI/Mark 3.5 x 18mm Daily activity [...] medications to the office Sammy Wolff MSN, GROUP TESTER-CUSTOMER OPERATIONS MANAGER, PMHNP-[facility] Please excuse any errors in grammar or translation related to this dictation. Voice recognition software was utilized to prepare this document. documented in this encounterLake[facility] Work Phone: 1(266) 900-196002-05-2024 Instructions* Patient Instructions* JAMIE Miramontes - 08/16/2023 [...] medications to the office documented [facility]Un[facility] Work Phone: 1([phone]) 108-562701-05-2024 Discharge summary Author Federico Davis [facility] July 16, 2023 4:09pm Note Date/Time July 16, 2023 4: 06pm [facility] [address] [place] [address] Discharge Summary Signed Patient: Ashwini Vickers MR#: [id number] : 1935 Acct:[id number] Age/Sex: 88 / M Adm Date: 4 Loc: CL Room: Attending Dr: Federico Davis DO Copies to: Marie Castro,DO Federico Davis, DO~ Providers Date of Discharge: 07/16/23 Discharging Provider: Federico Davis Primary Care Provider: Marie Castro Discharge Diagnosis (1) Non-ST elevation myocardial infarction (NSTEMI), subendocardial infarction, subsequent episode of care: (2) Diabetes: (3) CAD (coronary artery disease): Final Diagnosis Final Discharge Diagnosis: 1. Recent non-ST elevation KS associated with fall and hip fracture 2. Severe two-vessel ASHD involving mid LAD and diagonal branch bifurcation 3. Mild LV dysfunction 4. Successful PCI ostial diagonal branch into the LAD with 3.5 x 18 mm Mark stent 5. Chronic total occlusion proximal/mid LAD Summary Hospital Course Hospital course: 88-year-old gentleman with recent fall and hip fracture complicated by non-ST elevation KS, abnormal stress imaging and subsequent diagnosis of [...] branch. LAD was attempted and deemed a WINDOWS SYSTEMS ENGINEER and therefore aborted, diagonal branch was stented with a 3.5 x 18 mm Inman stent without complications Patient will be discharged [...] % (Auto) 75.7, Lymph % (Auto) 8.4, [place] % (Auto) 15.1, Eos % (Auto) 0.3, Baso % (Auto) 0.5, Nucleat RBC Rel Count 0.1, Neut # (Auto) 6.3, Lymph # (Auto) 0.7 L, [place] # (Auto) 1.3 H, Eos # (Auto) [...] doctor or pharmacist, without first calling the fastener sewing machine operator who implanted the stent. If you [...] weight lifting, stair steppers, etc. until the fastener sewing machine operator approves these activities. Check with the fastener sewing machine operator on your first follow-up visit. CALL YOUR PHYSICIAN at [phone]: -If bleeding should occur from the catheter insertion site- apply pressure to the site then immediately call us. -Report any fever, redness, drainage, increased swelling, or firmness at the catheter insertion site. Some bruising or slight swelling may be present at thetime of discharge. -Should arm or leg become cold, numb, white, or blue, contact the fastener sewing machine operator immediately. -IF you should experience episodes [...] is recommended. Please call Central Scheduling at [phone] to schedule your appointment.] The attending fastener sewing machine operator or [facility] nurse clinician should provide you with specific instructions regarding activity, diet, medications, and further follow up for you. Follow the medication instructions provided on your discharge. If the dosages and instructions on this sheet differ from the dosage and instructions on the bottle, follow the instructions on the bottle. [facility] is not responsible for incorrect prescription information [...] 30 Days Qty: 30 0RF Follow Up: [facility] [Outside] - 08/16/23 2:00 pm Documented By: Federico Davis DO 07/16/23 1602 Signed By: <Electronically signed by Federico Davis DO> 07/16/23 1609 [facility] Work Phone: 1([phone]) 660-528801-05-2024 Procedure noteMount [facility] System11-14-2023 History of Present illness Narrative* Adrián Davis DO - 05/25/2023 1:00 PM EST Subjective Ashwini Vickers is a 88 y.o. male Chief Complaint Hospital Follow-up Seen in cardiology consultation at the request of Dr. Anat Perez for further evaluation and management in regards to coronary artery disease, recent non-ST elevation KS with moderately reduced left ventricular dysfunction and [...] Future 3. NSTEMI (non-ST elevated myocardial infarction) ([facility]/HCC) - Follow Up In Cardiology; Future 4. Essential hypertension 5. Diabetes mellitus type II, non insulin dependent (CMS/HCC) 6. Closed fracture of right hip, initial encounter (CMS/HCC) documented in this encounterLake[facility] Work Phone: 1(716) 397-566711-14-2023 Instructions* Patient Instructions* Lori Pelayo LPN - [...] time of your visit. documented in this encounterLake[facility] Work Phone: 1(244) 638-490311-10-2023 Evaluation note* Encounter Date Diagnosis Assessment Notes Treatment Notes Treatment Clinical Notes May, Closed displaced intertrochanteric fracture of right femur, initial encounter (ICD-10 - S72.141A) Radiographs of right hip was reviewed with the patient today, along with a physical examination. Patient should continue with PT. Continue use of pain medication to control pain. [employer] Other 10-27-2023 Progress note Author Fredi Medrano [facility] May 07, 2023 12:48pm Note Date/Time May 07, 2023 1 2:36pm [facility] [address] [place] [address] Physiatry(Rehab) Progress Note Signed Patient: Ashwini Vickers MR#: [id number] : 1935 Acct:[id number] Age/Sex: 88 / M Adm Date: 3 Loc: Room: [address] [place] [address] Type: ADM IN Attending Dr: Fredi Medrano [...] 40s. Patient was brought to [facility] ER where imaging demonstrated mildly [...] does not believe he has had an KS and is planning on performing an intervention [...] mg 05/03/23 16:59 Bisacodyl 10 Mg Supp.Rect NM 05/02/24 16:58 DAILY PRN Constipation Calcium Carbonate [...] 16:59 Docusate Enema 283 Mg/5 Ml Enema NM 05/02/24 16:58 DAILY PRN Constipation Enoxaparin Sodium [...] 05/02/24 16:59 6 units TID.WITH.MEALS [facility] Administration Protocol Insulin Aspart 0 units 05/03/23 18:00 05/07/23 12:13 Insulin Aspart 300 Units/3 Ml Insuln.Pen SUBCUT 05/02/24 17:59 2 units ACHS [facility] Administration Protocol Insulin Glargine 7 units 05/03/23 [...] Code(s): I25.10 - Atherosclerotic heart disease of [place] coronary artery without angina pectoris Status: Acute [...] Code(s): I25.10 - Atherosclerotic heart disease of [place] coronary artery without angina pectoris Status: Acute (9) Postoperative pain, acute, hip: Code(s): G89.18 - Other acute postprocedural pain; M25.559 - Pain in unspecified hip Status: Acute Plan 88-year-old male presenting to acute inpatient rehabilitation unit with functional impairments secondary to right hip fracture s/p repair. Hospital course complicated by non-KS troponin elevation. He was found to have [...] equipment to enhance the patient's a functional adventism Ensure adequate nutrition and hydration Sleep no issues Pain: Continue current regimen. Discharge planning Home with in 7 to 10 days. I spent greater than 15 minutes for services, including kbny-tb-oash encounter with the patient, discussion of the case, plan of care, and exam; and gkqalsr-ie-paif activities, such as reviewing pertinent applications consultant documentation, recent therapy notes, laboratory and radiology studies, and discussion of case with care team including physician, nursing, manager rn case, and therapists. More than 50 % of time was spent on patient/family counseling or coordination ofcare. Plan: I completed a substantive portion of this encounter, the medical decision makingportion of this note in its entirety, including Allied health note review, nursing note review, applications consultant note review, discussion with nursing and case management, and more than 50% of my time was spent on counseling and coordination of care, time spent 25 minutes Patient was personally seen by me, Dr. Medrano, on the day of encounter, reviewed the history and the relevant portions of the chart, including current orders, allied health and applications consultant notes, labs/imaging and performed smyth elements of exam and I formulated the plan of care and facilitated the medical decision making. Documented By: Fredi Medrano MD 1234 Signed By: <Electronically signed by Fredi Medrano MD> 05/07/23 1248 [facility] Work Phone: 1(315) 915-807310-26-2023 Progress note Author Fredi Medrano [facility] May 06, 2023 2:46pm Note Date/Time May 06, 2023 1 2:53pm [facility] [address] [place] [address] Physiatry(Rehab) Progress Note Signed Patient: Ashwini Vickers MR#: [id number] : 1935 Acct:[id number] Age/Sex: 88 / M Adm Date: 3 Loc: Room: [address] [place] [address] Type: ADM IN Attending Dr: Fredi Medrano [...] 40s. Patient was brought to [facility] ER where imaging demonstrated mildly [...] does not believe he has had an KS and is planning on performing an intervention [...] mg 05/03/23 16:59 Bisacodyl 10 Mg Supp.Rect NM 05/02/24 16:58 DAILY PRN Constipation Calcium Carbonate [...] 16:59 Docusate Enema 283 Mg/5 Ml Enema NM 05/02/24 16:58 DAILY PRN Constipation Enoxaparin Sodium [...] 05/02/24 16:59 7 units TID.WITH.MEALS [facility] Administration Protocol Insulin Aspart 0 units 05/03/23 18:00 05/06/23 06:38 Insulin Aspart 300 Units/3 Ml Insuln.Pen SUBCUT 05/02/24 17:59 Not Given ACHS [facility] Protocol Insulin Glargine 7 units 05/03/23 [...] 160 mg DAILY TAVIA Administration Assessment/Plan <Teena Victoria APRN - Last Filed: 05/06/23 13:14> Assessment/Plan (1) Closed intertrochanteric fracture of right hip: Code(s): S72.141A - Displaced intertrochanteric fracture of right femur, initial encounter for closed fracture Status: Acute (2) CAD (coronary artery disease): Code(s): I25.10 - Atherosclerotic heart disease of [place] coronary artery without angina pectoris Status: Acute [...] Code(s): I25.10 - Atherosclerotic heart disease of [place] coronary artery without angina pectoris Status: Acute (9) Postoperative pain, acute, hip: Code(s): G89.18 - Other acute postprocedural pain; M25.559 - Pain in unspecified hip Status: Acute Plan 88-year-old male presenting to acute inpatient rehabilitation unit with functional impairments secondary to right hip fracture s/p repair. Hospital course complicated by non-KS troponin elevation. He was found to have [...] equipment to enhance the patient's a functional adventism Ensure adequate nutrition and hydration Sleep no issues Pain: Continue current regimen. Discharge planning Home with in 7 to 10 days. I spent greater than 15 minutes for services, including sykj-mk-gauo encounter with the patient, discussion of the case, plan of care, and exam; and dyhzkcv-av-vyut activities, such as reviewing pertinent applications consultant documentation, recent therapy notes, laboratory and radiology studies, and discussion of case with care team including physician, nursing, manager rn case, and therapists. More than 50 % of [...] the chart, including currentorders, allied health and applications consultant notes, labs/imaging and plan of care as above. Documented By: Teena Victoria APRN 05/06/23 1 250 Signed By: <Electronically signed by AMADA Victoria> 05/06/23 1314 <Electronically signed by Fredi Medrano MD> 05/06/23 9324 [facility] Work Phone: 1(663) 438-690310-26-2023 Consult note Author Vidya Robert [facility] May 06, 2023 1:15pm Note Date/Time May 04, 2023 3 :49pm [facility] [address] [place] [address] Hospitalist Consult Note Signed Patient: Ashwini Vickers MR#: [id number] : 1935 Acct:[id number] Age/Sex: 88 / M Adm Date: 3 Loc: Room: [address] [place] [address] Type: ADM IN Attending Dr: Fredi Medrano [...] negative unless noted below or in HPI [facility] Medical History (Updated 05/04/23 @ 16:15 by [...] Allergies Allergy (Verified 04/28/23 12:20) Home Medications gmhiai-pvhfaxcf-iubjcxk 24,000-76,000-120,000 unit capsule,delayed rel (Creon) 2cap PO [...] mg 05/03/23 16:59 Bisacodyl 10 Mg Supp.Rect NM 05/02/24 16:58 DAILY PRN Constipation Calcium Carbonate [...] 16:59 Docusate Enema 283 Mg/5 Ml Enema NM 05/02/24 16:58 DAILY PRN Constipation Enoxaparin Sodium [...] % (Auto) 64.9, Lymph % (Auto) 23.0, [place] % (Auto) 9.9, Eos % (Auto) 1.5, Baso % (Auto) 0.7, Nucleat RBC Rel Count 0.2, Neut # (Auto) 4.6, Lymph # (Auto) 1.6, [place] # (Auto) 0.7, Eos # (Auto) 0.1, [...] Documented By: Nidia Wright APRN 04/12 11/01 8836 Signed By: <Electronically signed by AMADA Wright> 05/05/23 7120 <Electronically signed by Vidya Robert MD> 05/06/23 0565 [facility] Work Phone: 1([phone] 443-372410-25-2023 Progress note Author Fredi Medrano [facility] May 05, 2023 1:10pm Note Date/Time May 05, 2023 1 :11pm [facility] [address] [place] [address] Physiatry(Rehab) Progress Note Signed Patient: Ashwini Vickers MR#: [id number] : 1935 Acct:[id number] Age/Sex: 88 / M Adm Date: 3 Loc: Room: 4L5681-3 Type: ADM IN Attending Dr: Fredi Medrano [...] 40s. Patient was brought to [facility] ER where imaging demonstrated mildly [...] does not believe he has had an KS and is planning on performing an intervention [...] 65 17 172/88 H 100 Room Air 1025/23 05:00 05/05/23 05:00 05/05/23 05:00 05/05/23 05:00 [...] 05/05/23 11:35 Lipa/Prot/Amyla 24-76-120k [address] PO 05/03/24 [...] mg 05/03/23 16:59 Bisacodyl 10 Mg Supp.Rect NM 05/02/24 16:58 DAILY PRN Constipation Calcium Carbonate [...] 16:59 Docusate Enema 283 Mg/5 Ml Enema NM 05/02/24 16:58 DAILY PRN Constipation Enoxaparin Sodium [...] Code(s): I25.10 - Atherosclerotic heart disease of chitimacha coronary artery without angina pectoris Status: Acute [...] Code(s): I25.10 - Atherosclerotic heart disease of chitimacha coronary artery without angina pectoris Status: Acute (9) Postoperative pain, acute, hip: Code(s): G89.18 - Other acute postprocedural pain; M25.559 - Pain in unspecified hip Status: Acute Plan 88-year-old male presenting to acute inpatient rehabilitation unit with functional impairments secondary to right hip fracture s/p repair. Hospital course complicated by non-KS troponin elevation. He was found to have [...] equipment to enhance the patient's a functional adventism Ensure adequate nutrition and hydration Sleep no issues Pain: Continue current regimen. Discharge planning Home with in 7 to 10 days. Plan: I completed a substantive portion of this encounter, the medical decision makingportion of this note in its entirety, including Allied health note review, nursing note review, applications consultant note review, discussion with nursing and case management, and more than 50% of my time was spent on counseling and coordination of care, time spent 25 minutes Patient was personally seen by me, Dr. Medrano, on the day of encounter, reviewed the history and the relevant portions of the chart, including current orders, allied health and applications consultant notes, labs/imaging and performed smyth elements of exam and I formulated the plan of care and facilitated the medical decision making. Documented By: Fredi Medrano MD 1308 Signed By: <Electronically signed by Fredi Medrano MD> 05/05/23 1310 [facility] Work Phone: 1([phone]) 600-227310-25-2023 History and physical note Author Fredi Medrano [facility] May 05, 2023 10:01am Note Date/Time May 04, 2023 1 1:35am [facility] [address] [place] [address] Physiatry (Rehab) H&P Signed Patient: Ashwini Vickers MR#: [id number] : 1935 Acct:[id number] Age/Sex: 88 / M Adm Date: 3 Loc: Room: [address] [place] [address] Type: ADM IN Attending Dr: Fredi Medrano [...] 40s. Patient was brought to [facility] ER where imaging demonstrated mildly [...] does not believe he has had an KS and is planning on performing an intervention [...] two-story home. Does not use assistive devices. [facility] Medical History Anxiety and depression BPH (benign [...] 12:20) Home and Active Meds: Home Medications apfcvl-qszzelir-vypmzxg 24,000-76,000-120,000 unit capsule,delayed rel (Creon) 2cap PO [...] Bisacodyl (Bisacodyl 10 Mg Supp.Rect) 10 mg NM DAILY PRN PRN Reason: Constipation Stop: 05/02/24 [...] Enema 283 Mg/5 Ml Enema) 283 mg NM DAILY PRN PRN Reason: Constipation Stop: 05/02/24 16:58 Enoxaparin Sodium (Enoxaparin 40 Mg/0.4 Ml Syringe) 40 mg SUBCUT DAILY@1000 TAVIA Stop: 05/03/24 09:59 Insulin Aspart (Insulin Aspart 300 Units/3 Ml Insuln.Pen) 0 units SUBCUT TID.WITH.MEALS [facility]; Protocol Stop: 05/02/24 16:59 Last Admin: 05/04/23 08:27 Dose: 7 units Insulin Aspart (Insulin Aspart 300 Units/3 Ml Insuln.Pen) 0 units SUBCUT ACHS [facility]; Protocol Stop: 05/02/24 17:59 Last Admin: 05/04/23 08:27 Dose: 1 units Insulin Glargine (Insulin Glargine 300 Units/3 Ml Insuln.Pen) 7 units SUBCUT BID [facility] Stop: 05/02/24 20:59 Last Admin: 05/04/23 [...] Tablet) 30 mg PO DAILY [facility] Stop: 05/03/24 08:59 Last Admin: 05/04/23 [...] Cap.Er.24h) 0.4 mg PO DAILY [facility] Stop: 05/03/24 08:59 Last Admin: 05/04/23 08:10 Dose: 0.4 mg Triamcinolone Acetonide (Triamcinolone 0.1% Cream 15 Gm Tube) 1 applic TOPICAL QID PRN PRN Reason: Irritation Stop: 05/02/24 17:10 Valsartan (Valsartan 80 Mg Tablet) 80 mg PO DAILY [facility] Stop: 05/03/24 08:59 Last Admin: 05/04/23 [...] % (Auto) 64.9 Lymph % (Auto) 23.0 [place] % (Auto) 9.9 Eos % (Auto) 1.5 Baso % (Auto) 0.7 Nucleat RBC Rel Count 0.2 Neut # (Auto) 4.6 Lymph # (Auto) 1.6 [place] # (Auto) 0.7 Eos # (Auto) 0.1 [...] MPV Neut % (Auto) Lymph % (Auto) [place] % (Auto) Eos % (Auto) Baso % (Auto) Nucleat RBC Rel Count Neut # (Auto) Lymph # (Auto) [place] # (Auto) Eos # (Auto) Baso # [...] 24 hour daily monitoring and intervention from Associate Property Manager as well as other consulting physicians including internal medicine as well as 24 hour daily fiberglass roving winder nursing - for medical safe / optimal [...] Code(s): I25.10 - Atherosclerotic heart disease of chitimacha coronary artery without angina pectoris Status: Acute [...] Code(s): I25.10 - Atherosclerotic heart disease of chitimacha coronary artery without angina pectoris Status: Acute (9) Postoperative pain, acute, hip: Code(s): G89.18 - Other acute postprocedural pain; M25.559 - Pain in unspecified hip Status: Acute Plan 88-year-old male presenting to acute inpatient rehabilitation unit with functional impairments secondary to right hip fracture s/p repair. Hospital course complicated by non-KS troponin elevation. He was found to have [...] equipment to enhance the patient's a functional adventism Ensure adequate nutrition and hydration Sleep no issues Pain: Continue current regimen. Discharge planning Home with in 7 to 10 days. I spent greater than 45 minutes for services, including rufn-bc-jnck encounter with the patient, discussion of the case, plan of care, and exam; and tcldzhe-yb-qmvl activities, such as reviewing pertinent applications consultant documentation, recent therapy notes, laboratory and radiology studies, and discussion of case with care team including physician, nursing, manager rn case, and therapists. More than 50 % of time was spent on patient/family counseling or coordination ofcare. Plan: I completed a substantive portion of this encounter, the medical decision makingportion of this note in its entirety, including Allied health note review, nursing note review, applications consultant note review, discussion with nursing and case management, and more than 50% of my time was spent on counseling and coordination of care, time spent 70 minutes Patient was personally seen by me, Dr. Medrano, on the day of encounter, within 24 hours of rehab admission, reviewed the history and the relevant portions of the chart, including current orders, allied health and applications consultant notes, labs/imaging and performed smyth elements of exam and I formulated the planof care and facilitated the medical decision making. Documented By: Teena Victoria APRN 05/04/23 1 122 Signed By: <Electronically signed by AMADA Victoria> 05/04/23 1209 <Electronically signed by Fredi Medrano MD> 05/05/23 1001 [facility] Work Phone: 1(123) 294-156110-23-2023 Progress note Author Ashwini Conrad [facility] May 03, 2023 12:02pm Note Date/Time May 03, 2023 1 1:49am [facility] [address] [place] [address] Orthopedic Progress Note Signed Patient: Ashwini Vickers MR#: [id number] : 1935 Acct:[id number] Age/Sex: 88 / M Adm Date: 3 Loc: 4N Room: [address] [place] [address] Type: ADM IN Attending Dr: Humberto Diaz [...] Code(s): I25.10 - Atherosclerotic heart disease of chitimacha coronary artery without angina pectoris Status: Acute [...] signed by Ashwini Conrad MD> 05/03/23 1202 [facility] Work Phone: 1(534) 630-957410-22-2023 Progress note Author Sushant Cordon [facility] May 02, 2023 2:35pm Note Date/Time May 02, 2023 2 :35pm [facility] [address] [place] [address] Hospitalist Progress Note Signed Patient: Ashwini Vickers MR#: [id number] : 1935 Acct:[id number] Age/Sex: 88 / M Adm Date: 3 Loc: N Room: [address] [place] [address] Type: ADM IN Attending Dr: Sushant Cordon [...] Jesúsq PRN Reason Stop Dose Admin Acetaminophen 650 [...] mg 04/28/23 17:19 Bisacodyl 10 Mg Supp.Rect NM 04/27/24 17:18 DAILY PRN Constipation Calcium Carbonate [...] Insuln.Pen SUBCUT 05/01/24 16:59 TID.WITH.MEALS [facility] Protocol Insulin Glargine 7 units 05/01/23 [...] <Electronically signed by Sushant Cordon DO> 05/02/23 5022 [facility] Work Phone: 1(901) 760-741710-22-2023 Progress note Author Ashwini Conrad [facility] May 02, 2023 2:12pm Note Date/Time May 02, 2023 2 :12pm [facility] [address] [place] [address] Orthopedic Progress Note Signed Patient: Ashwini Vickers MR#: [id number] : 1935 Acct:[id number] Age/Sex: 88 / M Adm Date: 3 Loc: 4N Room: [address] [place] [address] Type: ADM IN Attending Dr: Sushant Cordon [...] MPV Neut % (Auto) Lymph % (Auto) [place] % (Auto) Eos % (Auto) Baso % (Auto) Nucleat RBC Rel Count Neut # (Auto) Lymph # (Auto) [place] # (Auto) Eos # (Auto) Baso # [...] % (Auto) 71.9 Lymph % (Auto) 13.7 [place] % (Auto) 13.5 Eos % (Auto) 0.8 Baso % (Auto) 0.1 Nucleat RBC Rel Count 0.0 Neut # (Auto) 6.2 Lymph # (Auto) 1.2 [place] # (Auto) 1.2 H Eos # (Auto) [...] MPV Neut % (Auto) Lymph % (Auto) [place] % (Auto) Eos % (Auto) Baso % (Auto) Nucleat RBC Rel Count Neut # (Auto) Lymph # (Auto) [place] # (Auto) Eos # (Auto) Baso # (Auto) PHA Creatinine Clear Sodium Potassium Chloride Carbon Dioxide Anion Gap BUN Creatinine Est GFR (CKD-EPI) Glucose POC Glucose 376 POC Glucose Comment Calcium Triglycerides Cholesterol LDL Cholesterol, Calc VLDL Cholesterol HDL Cholesterol Cholesterol/HDL Ratio Assessment / Plan Assessment and plan (1) Two-vessel coronary artery disease: Code(s): I25.10 - Atherosclerotic heart disease of chitimacha coronary artery without angina pectoris Status: Acute [...] Ashwini Conrad MD> 05/02/23 1412 [facility] Work Phone: [phone]) 372-622710-22-2023 Progress note Author Harsh Del Valle [facility] May 02, 2023 10:49am Note Date/Time May 02, 2023 1 0:49am [facility] [address] [place] [address] Cardiology Progress Note Signed Patient: Ashwini Vickers MR#: [id number] : 1935 Acct:[id number] Age/Sex: 88 / M Adm Date: 3 Loc: N Room: [address] [place] [address] Type: ADM IN Attending Dr: Sushant Cordon [...] is to be determined by her primary fastener sewing machine operator and Dr. 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 Status: Acute [...] intervention Documented By: Harsh Del Valle MD, [facility] 3 1047 Signed By: <Electronically signed by [facility] Harsh Del Valle> 05/02/23 1041 [facility] Work Phone: 1(365) 373-444510-21-2023 Progress note Author Sushant Cordon [facility] May 01, 2023 3:13pm Note Date/Time May 01, 2023 3 :09pm [facility] [address] [place] [address] Hospitalist Progress Note Signed Patient: Sberna,Ashwini J MR#: [id number] : 1935 Acct:[id number] Age/Sex: 88 / M Adm Date: 3 Loc: 4N Room: 7R3089-5 Type: ADM IN Attending Dr: Sushant Cordon [...] mg 04/28/23 17:19 Bisacodyl 10 Mg Supp.Rect NM 04/27/24 17:18 DAILY PRN Constipation Calcium Carbonate [...] 04/27/24 21:59 Not Given TID.WM.HS [facility] Protocol Insulin Glargine 7 units 05/01/23 21:00 Insulin Glargine 300 Units/3 Ml Insuln.Pen SUBCUT 04/30/24 20:59 BID [facility] Lidocaine HCl 0.1 ml 04/29/23 01:31 [...] <Electronically signed by Sushant Cordon DO> 05/01/23 5992 [facility] Work Phone: 1(431) 475-324410-21-2023 Progress note Author Hrash Del Valle [facility] May 01, 2023 12:24pm Note Date/Time May 01, 2023 1 2:21pm [facility] [address] [place], [place] [id number] Cardiology Progress Note Signed Patient: Ashwini Vickers MR#: [id number] : 1935 Acct:[id number] Age/Sex: 88 / M Adm Date: 3 Loc: 4N Room: 1U4547-0 Type: ADM IN Attending Dr: Sushant Cordon [...] MPV Neut % (Auto) Lymph % (Auto) [place] % (Auto) Eos % (Auto) Baso % (Auto) Nucleat RBC Rel Count Neut # (Auto) Lymph # (Auto) [place] # (Auto) Eos # (Auto) Baso # [...] MPV Neut % (Auto) Lymph % (Auto) [place] % (Auto) Eos % (Auto) Baso % (Auto) Nucleat RBC Rel Count Neut # (Auto) Lymph # (Auto) [place] # (Auto) Eos # (Auto) Baso # [...] MPV Neut % (Auto) Lymph % (Auto) [place] % (Auto) Eos % (Auto) Baso % (Auto) Nucleat RBC Rel Count Neut # (Auto) Lymph # (Auto) [place] # (Auto) Eos # (Auto) Baso # [...] MPV Neut % (Auto) Lymph % (Auto) [place] % (Auto) Eos % (Auto) Baso % (Auto) Nucleat RBC Rel Count Neut # (Auto) Lymph # (Auto) [place] # (Auto) Eos # (Auto) Baso # [...] % (Auto) 68.2 Lymph % (Auto) 16.8 [place] % (Auto) 14.1 Eos % (Auto) 0.6 Baso % (Auto) 0.3 Nucleat RBC Rel Count 0.1 Neut # (Auto) 6.0 Lymph # (Auto) 1.5 [place] # (Auto) 1.2 H Eos # (Auto) [...] MPV Neut % (Auto) Lymph % (Auto) [place] % (Auto) Eos % (Auto) Baso % (Auto) Nucleat RBC Rel Count Neut # (Auto) Lymph # (Auto) [place] # (Auto) Eos # (Auto) Baso # [...] Code(s): I25.10 - Atherosclerotic heart disease of chitim[place] coronary artery without angina pectoris Status: Acute [...] intervention Documented By: Harsh Del Valle MD, [facility] 3 1220 Signed By: <Electronically signed by [facility] Harsh Del Valle> 05/01/23 0552 [facility] Work Phone: 1(167) 297-734110-21-2023 Progress note Author Ashwini Conrad [facility] May 01, 2023 11:31am Note Date/Time May 01, 2023 1 1:31am [facility] [address] [place] [address] Orthopedic Progress Note Signed Patient: Ashwini Vickers MR#: [id number] : 1935 Acct:[id number] Age/Sex: 88 / M Adm Date: 3 Loc: 4N Room: 1I6559-7 Type: ADM IN Attending Dr: Sushant Cordon [...] % (Auto) 79.2 Lymph % (Auto) 5.9 [place] % (Auto) 14.6 Eos % (Auto) 0.0 Baso % (Auto) 0.3 Nucleat RBC Rel Count 0.1 Neut # (Auto) 7.4 Lymph # (Auto) 0.6 L [place] # (Auto) 1.4 H Eos # (Auto) [...] MPV Neut % (Auto) Lymph % (Auto) [place] % (Auto) Eos % (Auto) Baso % (Auto) Nucleat RBC Rel Count Neut # (Auto) Lymph # (Auto) [place] # (Auto) Eos # (Auto) Baso # [...] MPV Neut % (Auto) Lymph % (Auto) [place] % (Auto) Eos % (Auto) Baso % (Auto) Nucleat RBC Rel Count Neut # (Auto) Lymph # (Auto) [place] # (Auto) Eos # (Auto) Baso # [...] MPV Neut % (Auto) Lymph % (Auto) [place] % (Auto) Eos % (Auto) Baso % (Auto) Nucleat RBC Rel Count Neut # (Auto) Lymph # (Auto) [place] # (Auto) Eos # (Auto) Baso # [...] MPV Neut % (Auto) Lymph % (Auto) [place] % (Auto) Eos % (Auto) Baso % (Auto) Nucleat RBC Rel Count Neut # (Auto) Lymph # (Auto) [place] # (Auto) Eos # (Auto) Baso # [...] % (Auto) 68.2 Lymph % (Auto) 16.8 [place] % (Auto) 14.1 Eos % (Auto) 0.6 Baso % (Auto) 0.3 Nucleat RBC Rel Count 0.1 Neut # (Auto) 6.0 Lymph # (Auto) 1.5 [place] # (Auto) 1.2 H Eos # (Auto) [...] MPV Neut % (Auto) Lymph % (Auto) [place] % (Auto) Eos % (Auto) Baso % (Auto) Nucleat RBC Rel Count Neut # (Auto) Lymph # (Auto) [place] # (Auto) Eos # (Auto) Baso # [...] Code(s): I25.10 - Atherosclerotic heart disease of chitim[place] coronary artery without angina pectoris Status: Acute [...] signed by Ashwini Conrad MD> 05/01/23 1131 [facility] Work Phone: 1(140) 503-131910-20-2023 Progress note Author Sushant Cordon [facility] April 30, 2023 9:13pm Note Date/Time April 30, 2023 9 :13pm [facility] [address] [place] [address] Hospitalist Progress Note Signed Patient: Ashwini Vickers MR#: [id number] : 1935 Acct:[id number] Age/Sex: 88 / M Adm Date: 3 Loc: N Room: 0R4341-3 Type: ADM IN Attending Dr: Sushant Cordon [...] mg 04/28/23 17:19 Bisacodyl 10 Mg Supp.Rect NM 04/27/24 17:18 DAILY PRN Constipation Calcium Carbonate [...] Lactated Ringers IV 04/29/24 16:44 Not Given .[id number] TAVIA Cefazolin Sodium 1 gm in 50 [...] <Electronically signed by Sushant Cordon DO> 04/30/232112 [facility] Work Phone: 1(554) 361-837710-20-2023 Hospital Discharge instructions Additional Instructions Rehab to [...] high armed straight-backed chair. -May use toilet patient admitting representative on commode. -Continue to use walker or [...] OTHER -Any problems- Call the office at [phone] or return to Emergency Room. -If you are having excessive or persistent pain, swelling, fever (oral temp >101), yellow-green foul smelling drainage or bleeding from incision, excessive redness of incision, nausea, vomiting, or any other problems, you should first call your surgeon at [phone] for advice. If you are unable to contact your surgeon, seek help from a hospital emergency room. FOLLOW UP -Call my office the first business day after discharge and ask for assistance with post-discharge plans, and appointments.[facility] Work Phone: 1(163) 100-916910-20-2023 Progress note Author Anat Perez [facility] April 30, 2023 10:32am Note Date/Time April 30, 2023 1 0:32am [facility] [address] [place] [address] Cardiology Progress Note Signed Patient: Ashwini Vickers MR#: [id number] : 1935 Acct:[id number] Age/Sex: 88 / M Adm Date: 3 Loc: 4N Room: [address] [place] [address] Type: ADM IN Attending Dr: Sushant Cordon [...] events overnight. Denies chest pain or dyspnea. [facility] scheduled for this AM (findings as [...] MPV Neut % (Auto) Lymph % (Auto) [place] % (Auto) Eos % (Auto) Baso % (Auto) Nucleat RBC Rel Count Neut # (Auto) Lymph # (Auto) [place] # (Auto) Eos # (Auto) Baso # [...] MPV Neut % (Auto) Lymph % (Auto) [place] % (Auto) Eos % (Auto) Baso % (Auto) Nucleat RBC Rel Count Neut # (Auto) Lymph # (Auto) [place] # (Auto) Eos # (Auto) Baso # [...] % (Auto) 60.6 Lymph % (Auto) 22.0 [place] % (Auto) 16.4 Eos % (Auto) 0.6 Baso % (Auto) 0.4 Nucleat RBC Rel Count 0.1 Neut # (Auto) 5.4 Lymph # (Auto) 2.0 [place] # (Auto) 1.5 H Eos # (Auto) [...] MPV Neut % (Auto) Lymph % (Auto) [place] % (Auto) Eos % (Auto) Baso % (Auto) Nucleat RBC Rel Count Neut # (Auto) Lymph # (Auto) [place] # (Auto) Eos # (Auto) Baso # [...] MPV Neut % (Auto) Lymph % (Auto) [place] % (Auto) Eos % (Auto) Baso % (Auto) Nucleat RBC Rel Count Neut # (Auto) Lymph # (Auto) [place] # (Auto) Eos # (Auto) Baso # [...] 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 - Discussed with career guidance counselor- Dr Davis regarding timing of intervention- given that pt did not have KS on presentation and was very functional prior [...] signed by Anat Perez MD> 04/30/23 1032 [facility] Work Phone: 1(864) 489-187610-20-2023 [facility] Progress note Author Sushant Cordon [facility] April 29, 2023 6:28pm Note Date/Time April 29, 2023 6 :28pm [facility] [address] [place] [address] Hospitalist Progress Note Signed Patient: Ashwini Vickers MR#: [id number] : 1935 Acct:[id number] Age/Sex: 88 / M Adm Date: 3 Loc: 4N Room: [id number] Type: ADM IN Attending Dr: Sushant Cordon [...] Jesúsq PRN Reason Stop Dose Admin Acetaminophen 650 [...] mg 04/28/23 17:19 Bisacodyl 10 Mg Supp.Rect NM 04/27/24 17:18 DAILY PRN Constipation Calcium Carbonate [...] Dextrose-Lactated Ringers IV 04/27/24 17:14 125 mls/hr .[id number] TAVIA Administration Lactated Ringer's 1,000 mls @ [...] 04/28/23 17:19 Nitroglycerin 0.4 Mg Tab.Subl SUBLINGUAL 10/17/24 17:18 Q5M PRN Chest Pain Ondansetron HCl [...] <Electronically signed by Sushant Cordon DO> 04/29/231827 [facility] Work Phone: 1(260) 822-333010-19-2023 Consult note Author Anat Perez [facility] April 29, 2023 5:34pm Note Date/Time April 29, 2023 5 :07pm [facility] [address] [place] [address] Cardiology Consult Note Signed Patient: Ashwini Vickers MR#: [id number] : 1935 Acct:[id number] Age/Sex: 88 / M Adm Date: 3 Loc: N Room: [address] [place] [address] Type: ADM IN Attending Dr: Sushant Cordon [...] negative unless noted below or in HPI [facility] Medical History (Updated 04/29/23 @ 17:34 by [...] unit subcut HS 04/28/23 [History Confirmed 04/28/23] daantx-dyqtedcz-utifpqm 24,000-76,000-120,000 unit capsule,delayed rel (Creon) 2cap PO [...] x10E3/uL Lymph # (Auto) 2.0 (1.00-4.8) x10E3/uL [place] # (Auto) 1.1 H (0.0-0.8) x10E3/uL Eos [...] @ 125 mls/hr IV .Q8H [facility] Rx#:[id number] Oral 0 / 0 0 / 0 [...] disease) prior to surgery. -Will plan for [facility] tomorrow for further evaluation/risk stratification. NPO past midnight. Documented By: Anat Perez MD 04/29/231703 Signed By: <Electronically signed by Anat Perez MD> 04/29/231733 [facility] Work Phone: 1(877) 574-295910-18-2023 Consult note Author Ashwini Conrad [facility] April 28, 2023 6:47pm Note Date/Time April 28, 2023 6 :43pm [facility] [address] [place] [address] Orthopedic Consult Note Signed Patient: Ashwini Vickers MR#: [id number] : 1935 Acct:[id number] Age/Sex: 88 / M Adm Date: 3 Loc: 4N Room: 5R9033-6 Type: ADM IN Attending Dr: Sushant Cordon [...] negative unless noted below or in HPI [facility] Medical History (Updated 04/28/23 @ 17:35 by [...] unit subcut HS 04/28/23 [History Confirmed 04/28/23] xuuypp-blkckrju-ruvrhht 24,000-76,000-120,000 unit capsule,delayed rel (Creon) 2cap PO [...] Appearance Clear, Urine pH 6.5, Ur Specific [place] 1.009, Urine Protein Negative, Urine Glucose (UA) [...] % (Auto) 75.0, Lymph % (Auto) 14.8, [place] % (Auto) 9.3, Eos % (Auto) 0.5, Baso % (Auto) 0.4, Nucleat RBC Rel Count 0.1, Neut # (Auto) 7.3, Lymph # (Auto) 1.4, [place] # (Auto) 0.9 H, Eos # (Auto) 0.0, Baso # (Auto) 0.0, Monocyte Dist Width 18.61 H & H 04/28/23 Range/Units 13:20 Hgb 11.5 L (13.0-17.0) g/dL Hct 34.8 L (38.8-50.0) % Coagulation 04/28/23 Range/Units 13:20 INR 1.0 All other labs are normal. Imaging & Diagnostic Results Imaging/Diagnostics: XRAY ([facility] 04/28/2023) Right FEMUR/RIGHT HIP/PELVIS: AP of the [...] By: <Electronically signed by Ashwini Conrad MD> 04/28/237 [facility] Work Phone: 1(559) 176-348710-18-2023 History and physical note Author Sushant Cordon [facility] April 28, 2023 5:40pm Note Date/Time April 28, 2023 5 :40pm [facility] ENTER [address] [place] [address] Hospitalist H&P Signed Patient: Ashwini Vickers MR#: [id number] : 1935 Acct:[id number] Age/Sex: 88 / M Adm Date: 3 Loc: Room: [address] [place] [address] Type: ADM IN Attending Dr: Sushant Cordon [...] 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 This [...] had what sounds like an EGD in [place] about 15 months ago with what sounds like some gastritis. Otherwise his past medical history seems to include prostate hypertrophy. Social history: He does smoke a cigar daily after dinner. In the past he smoked0.25 of a pack per day of cigarettes. He does drink wine daily with dinner. Heis mainly retired from [employer] here in [place]. 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 Family history: A sister of an unspecified cancer. Another sibling ofwhat sounds like acute leukemia. Review of Systems Review of Systems Review of systems: 10 systems are reviewed and are negative except as mentioned elsewhere in the documentation. [facility] Medical History (Updated 04/28/23 @ 17:35 by [...] unit subcut HS 04/28/23 [History Confirmed 04/28/23] yarinp-taqbkyra-zvcitso 24,000-76,000-120,000 unit capsule,delayed rel (Creon) 2cap PO [...] % (Auto) 14.8 % (.) 04/28/23 13:20 [place] % (Auto) 9.3 % (.) 04/28/23 13:20 Eos % (Auto) 0.5 % (.) 04/28/23 13:20 Baso % (Auto) 0.4 % (.) 04/28/23 13:20 Nucleat RBC Rel Count 0.1 /100 WBC (0-0.5) 04/28/23 13:20 Neut # (Auto) 7.3 x10E3/uL (1.8-7.7) 04/28/23 13:20 Lymph # (Auto) 1.4 x10E3/uL (1.00-4.8) 04/28/23 13:20 [place] # (Auto) 0.9 x10E3/uL (0.0-0.8) H 04/28/23 [...] pH 6.5 (5.0-9.0) 04/28/23 15:00 Ur Specific [place] 1.009 (1.001-1.030) 04/28/23 15:00 Urine Protein Negative [...] did order an echocardiogram but the echocardiogram automotive service technician has likely gone home for the [...] days): 5 Documented By: Sushant Cordon DO 1724 Signed By: <Electronically signed by Sushant Cordon DO> 04/28/23 1740 [facility] Work Phone: 1(500) 984-501010-01-2023 Chief complaint+Reason for visit Narrative * Chief [...] pylori ulcer Helicobacter pylori (H. pylori) Hypertension [id number] Stomach ulcer [facility] Work Phone: 1(261) 662-691706-29-2022 History of Present illness Narrative* Courtney Singh - 01/07/2022 12:25 PM EDT CLINICAL PHARMACY NOTE: MEDS TO BEDS Total # of Prescriptions Filled: 3 The following medications were delivered to the patient: Sucralfate susp Amlodipine Pantoprazole Additional Documentation: Pharmacy dispensed all we had of the Sucralfate susp- will transfer the rest to the [facility] in [place], [place] $8.61 collected via [employer] * Jose Roberto Peñaloza MD - 01/06/2022 [...] (37.1 C) BP Systolic (24hrs), Av , Min:150 , [...] medical management per trauma team * Judi Ye OT - 01/03/2022 3:25 PM EDT Occupational Therapy Facility/Department: [address] Occupational Therapy Initial Assessment Name: Ashwini Vickers : 1935 Date of Service: 01/03/2022 Chief Complaint Patient presents with Abdominal Pain ulcer Discharge Recommendations: Patient would benefit from continued therapy after discharge OT Equipment Recommendations Equipment Needed: Yes Mobility Devices: ADL Assistive Devices ADL Assistive Devices: Equipment Superintendent;Long-handled Sponge;Long-handled Shoe Horn;Sock- Aid Hard;Grab Bars -shower [...] Ambulation Assistance: Independent Transfer Assistance: Independent Active Wire Straightening Machine Operator: Yes Mode of Transportation: [employer] Occupation: Retired Type of Occupation: Reports he has retired 4-5 times. Works on [employer] sometimes now debo wants. [employer]. Use to work for [employer]. Leisure & Hobbies: Golfing Additional Comments: 3-4 [...] AROM: WFL Hand Dominance Hand Dominance: Right [facility] Score [facility] Inpatient Daily Activity Raw Score: 19 (01/03/22 152) [facility] ADL T-Scale Score : 40.22 (01/03/22 152) ADL Inpatient CMS 0-100% Score: 42.8 (01/03/22 152) ADL Inpatient [facility] G-Code Modifier : CK (01/03/221524) Goals Short [...] 01/03/2022 12:40 PM EDT Physical Therapy Facility/Department: [address] [place] Physical Therapy Initial Assessment Name: Ashwini Vickers [...] Ambulation Assistance: Independent Transfer Assistance: Independent Active Wire Straightening Machine Operator: Yes Mode of Transportation: [facility] Occupation: Retired Type of Occupation: Reports he has retired 4-5 times. Works on [employer] sometimes now debo wants. [employer]. Use to work for [employer]. Leisure & Hobbies: [employer] Additional Comments: 3-4 weeks post open heart [...] 23 Minutes Ino Sylvester PT * Mercedes Davis DO - 01/03/2022 8:06 AM EDT Bariatric [...] turgor I/O last 3 completed shifts: In: 1957.5 [I.V.:1757.1; IV Piggyback:200.5] Out: 935 [Urine:700; Drains:210; Blood:25] Drain/tube output: In: 1957.5 [I.V.:1757.1] Out: 935 [Urine:700; Drains:210] LAB: CBC: Recent Labs 01/02/22185601/03/22626 WBC 20.5* 22.1* HGB 12.9* 12.2* HCT 38.9* 37.4* MCV 81.2* 82.4* PLT 324 292 BMP: Recent Labs 01/02/22185601/03/225 01/03/22626 NA 130* 136 138 K 4.1 4.6 [...] 01/03/2022 12:19 AM EDT Assessment forms from [place] note that pt stated he has bed bugs at home and although they have treated the house, they have not been able to get rid of them. Pt did not have any belongings transferred with him from the OR. documented in this encounterBON [facility] Work Phone: constqz note Author Tru Briceno [facility] May 03, 2023 3:17pm Note Date/Time May 03, 2023 2 :59pm [facility] ENTER [address] [place] [address] Physiatry (Rehab) Consult Note Signed Patient: Ashwini Vickers MR#: [id number] : 1935 Acct:[id number] Age/Sex: 88 / M Adm Date: 3 Loc: Room: [address] [place] [address] Type: ADM IN Attending Dr: Humberto Diaz [...] negative unless noted below or in HPI [facility] Medical History BPH (benign prostatic hyperplasia) Diabetes [...] unit subcut HS 04/28/23 [History Confirmed 04/28/23] vrnthk-urcgaoji-trjvfpf 24,000-76,000-120,000 unit capsule,delayed rel (Creon) 2cap PO [...] bisacodyl 10 mg rectal suppository 10 mg NM DAILY PRN Constipation #0 ea 05/03/23 [Rx] [...] Code(s): 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 Plan: I completed a substantive portion of this encounter, the medical decision making portion of this note in its entirety, including Allied health note review, nursing note review, applications consultant note review, discussion with nursing and case management, and more than 50% of my time was spent on counseling and coordination of care, time spent 65 minutes Patient was personally seen by me, Dr. Briceno, on the day of encounter, reviewed the history and the relevant portions of the chart, including current orders, allied health and applications consultant notes, labs/imaging and performed smyth elements of exam and I formulated the plan of care and facilitated the medical decision making. Documented By: Tru Briceno MD 05/03/23 1455 Signed By: <Electronically signed by Tru Briceno MD> 05/03/23 5111 [facility] Work Phone: Discharge summary Author Humberto Diaz [facility] May 03, 2023 2:54pm Note Date/Time May 03, 2023 2 :39pm [facility] EN[facility] [address] [place] [address] Discharge Summary Signed Patient: Ashwini Vickers MR#: [id number] : 1935 Acct:[id number] Age/Sex: 88 / M Adm Date: 3 Loc: Room: [address] [place] [address]: Humberto Diaz MD Copies to: MD Marie Ambrose,DO~ Providers Date of Discharge: 05/03/23 Discharging Provider: Humberto Diaz Primary Care Provider: Marie Catsro Consults: 04/28/23 17:14 Consult to Cardiology Routine [...] Discharge Plan Discharge Plan Patient Disposition: Rehab [facility] Diet: Diabetic Additional Instructions: Rehab to manage: [...] high armed straight-backed chair. -May use toilet patient admitting representative on commode. -Continue to use walker or [...] OTHER -Any problems- Call the office at [phone] or return to Emergency Room. -If you are having excessive or persistent pain, swelling, fever (oral temp >101), yellow-green foul smelling drainage or bleeding from incision, excessive redness of incision, nausea, vomiting, or any other problems, you should first call your surgeon at [phone] for advice. If you are unable to [...] 0RF bisacodyl 10 mg Suppository 10 mg NM DAILY PRN (Reason: Constipation) Qty: 0 0RF [...] (call at discharge from Rehab to see Hand Roller for future ANGIOPLASTY PROCEDURE) Marie Castro DO [...] <Electronically signed by Humberto Diaz MD> 05/03/23 1942 [facility] Work Phone: Evaluation note* Diagnosis [...] uncontrolled, or unspecified documented in this encounter [facility] Work Phone: evaluation note* Diagnosis Onset Date Resolution Status Abnormal EKG acute Closed intertrochanteric fracture of right hip acute Elevated troponin acute [facility] Work Phone: evaluation note* Diagnosis Onset Date Resolution Status Abnormal EKG acute Closed intertrochanteric fracture of right hip acute Diabetes acute Elevated troponin acute Impaired mobility and activities of daily living acute Mild left ventricular systolic dysfunction (LVSD) acute Nonsustained monomorphic ventricular tachycardia acute Postoperative pain, acute, hip acute Two-vessel coronary artery disease acute [facility] Work Phone: Evaluation note* Diagnosis [...] artery disease acute Uncontrolled diabetes mellitus acute [facility] Work Phone: Evaluation note* Diagnosis NSTEMI (non-ST elevated myocardial infarction) ([facility])- Primary Acute myocardial infarction, subendocardial infarction, episode of care unspecified Abnormal stress test Other nonspecific abnormal cardiovascular system function study ASHD (arteriosclerotic heart disease) Coronary atherosclerosis of unspecified type of vessel, ch[place]imacha or graft Essential hypertension Unspecified essential hypertension Diabetes mellitus type II, non insulin dependent ([facility]) Type II or unspecified type diabetes mellitus without mention of complication, not stated as uncontrolled Closed fracture of right hip, initial encounter ([facility]) documented in this encounter [facility] Work Phone: Evaluation noteNo InformationNortPrime Healthcare Services [place] Other Evaluation note* Diagnosis Onset Date Resolution Status Diabetes acute CAD (coronary artery disease) acute Diabetes acute [facility] Work Phone: Evaluation note* Diagnosis Cardiomyopathy, ischemic- Primary Other specified forms of chronic ischemic heart disease ASHD (arteriosclerotic heart disease) Coronary atherosclerosis of unspecified type of vessel, [place]im[place] or graft BMI 20.0-20.9, adult Orthopnea documented in this encounter [facility] Work Phone: Evaluation noteNo assessment information available [facility] Work Phone: Evaluation note* Diagnosis Onset Date Resolution Status Fracture of C5 vertebra, closed acute Vertebral fracture, closed a cute Barretts esophagus acute H pylori ulcer acute [facility] Work Phone: History general Narrative - Reported* Type Description Date Medical History stage 1 diabetes Surgical History pancreas and spleen removal Surgical History back surgery Surgical History tonsilectomy Surgical History HIP TFN Short 2022 Merged With [facility] Other Hospital Discharge instructions* Instructions* Viki Donovan, - 01/07/2022 Maintain CHARISSA drain. Strip tubing [...] scheduled appointment, please call the office at [phone]. Call Your Doctor If Any of the [...] through Care Everywhere. * Surgical Drain Care (Russian) documented in this encounterBON [facility]ERSON [facility] Work Phone: Hospital Discharge instructions Additional Instructions [...] -Dietary supplement: Glucerna 1 container twice a day.[facility] Work Phone: Hospital Discharge instructions Additional [...] doctor or pharmacist, without first calling the fastener sewing machine operator who implanted the stent. If you [...] weight lifting, stair steppers, etc. until the fastener sewing machine operator approves these activities. Check with the fastener sewing machine operator on your first follow-up visit. CALL YOUR PHYSICIAN at [phone]: -If bleeding should occur from the catheter insertion site- apply pressure to the site then immediately call us. -Report any fever, redness, drainage, increased swelling, or firmness at the catheter insertion site. Some bruising or slight swelling may be present at the time of discharge. -Should arm or leg become cold, numb, white, or blue, contact the fastener sewing machine operator immediately. -IF you should experience episodes [...] is recommended. Please call Central Scheduling at [phone] to schedule your appointment.] The attending fastener sewing machine operator or [facility] nurse clinician should provide you with specific instructions regarding activity, diet, medications, and further follow up for you. Follow the medication instructions provided on your discharge. If the dosages and instructions on this sheet differ from the dosage and instructions on the bottle, follow the instructions on the bottle. [facility] is not responsible for incorrect prescription information provided by the patient during their visit. Do not stop your medications without consulting your health care provider. Please take the list with you to your next doctor's appointment.[facility] Work Phone: Reason for referral (narrative)* Consultation (Routine) - Authorized Specialty Diagnoses / Procedures Referred By Corbin t Referred To Contact Cardiology Diagnoses Abnormal stress test ASHD (arteriosclerotic heart disease) NSTEMI (non-ST elevated myocardial infarction) ([facility]) Procedures Follow Up In Cardiology Adrián Davis, [address] [facility], [facility] [address] [place] [address] Adrián Davis DO [address] [facility] [address], [address] [place] [address] Referral ID Status Reason Start Date Expiration Date V isits Requested Visits Authorized [id number] Authorized 05/25/2023 05/24/2024 1 1 * Cardiovascular (Routine) - Pending Review Specialty Diagnoses / Procedures Referred By Contac t Referred To Contact Diagnoses Abnormal stress test ASHD (arteriosclerotic heart disease) Procedures ECG 12 Lead Adrián Davis DO [address] [facility] [address], [address] [address] Referral ID Status Reason Start Date Expiration Date V isits Requested Visits Authorized [id number] Pending Review 05/25/2023 05/24/2024 1 1 [facility] Work Phone: Summary Purpose Family History No Family History Records Found Relationship Condition Age at Onset Recorded Date/T madelyn brother Malignant neoplasm Unknown natural son Sarcoma Unknown Relationship Condition Age at Onset Recorded Date/T madelyn brother Malignant neoplasm Unknown natural son Sarcoma Unknown sister Leukemia Unknown Advance Directives No Advanced Directives Records [...] section and content) DATE CREATED AUTHOR 06/25/2018 [facility] DATE CREATED AUTHOR AUTHOR'S ORGANIZ ATION 06/21/2019 [facility] DATE CREATED AUTHOR AUTHOR'S ORGANIZ ATION 01/29/2022 [facility] DATE CREATED AUTHOR AUTHOR'S ORGANIZ ATION 06/11/2022 [facility] DATE CREATED AUTHOR AUTHOR'S ORGANIZ ATION 06/12/2023 [facility] DATE CREATED AUTHOR AUTHOR'S ORGANIZ ATION 09/11/2023 [facility] EPIC DATE CREATED AUTHOR AUTHOR'S ORGANIZ ATION 10/12/2023 [facility] DATE CREATED AUTHOR AUTHOR'S ORGANIZ ATION 10/23/2023 [facility] DATE CREATED AUTHOR AUTHOR'S ORGANIZ ATION 11/06/2023 [facility] ys[facility] Group Reason for Visit (unrecogniz ed section and content) Reason Comments Abdominal Pain ulcer Specialty Diagnoses / Procedures Referred By Corbin t Referred To Contact Diagnoses Acute gastric ulcer with perforation (HCC) Perforated viscus Paul Conn DO [address] [facility] [address] [place] [address] [facility] [address] [place] [address] Referral ID Status Reason Start Date Expiration Date Visits Re quested Visits Authorized [id number] 1 1 Reason Comments Hospital Follow-up [facility] 05/08/2023 Specialty Diagnoses / Procedures Referred By Contviky t Referred To Contact Diagnoses Abnormal stress test ASHD (arteriosclerotic heart disease) Procedures ECG 12 Lead Adrián Davis, [address] [facility], [address] [place] [address] Referral ID Status Reason Start Date Expiration Date V isits Requested Visits Authorized [id number] Pending Review 05/25/2023 05/24/2024 1 1 Reason Comments Follow-up PCI Specialty Diagnoses / Procedures Referred By Corbin bradshaw Referred To Contact Cardiology Diagnoses ASHD (arteriosclerotic heart disease) Procedures Follow Up In Cardiology WolffSammyPAULN-CUSTOMER OPERATIONS MANAGER [address] [facility], [address] [place] [address] Referral ID Status Reason Start Date Expiration Date V isits Requested Visits Authorized [id number] Authorized 06/23/2023 06/22/2024 1 1 Ordered Prescriptions [...] Baljit Sage RN)1725 (Stopped - Provider: Baljit Sage RN)2317 (New Bag - Provider: Queta Geiger, RN)2351 [...] Baljit Sage RN)1530 (Stopped - Provider: Baljit Sage, KARIN)1655 (New Bag - Provider: Baljit Sage RN)2123 (Stopped - Provider: Queta Geiger, KARIN)2312 (New Bag - Provider: Queta Geiger, RN) 0335 (Stopped - Provider: Queta Geiger, RN)0507 (New Bag - Provider: Queta Geiger, RN)0907 (Stopped - Provider: Baljit Sage RN)1104 [...] Geiger RN) 0938 (Not Given - Provider: Leatha [...] KARIN) 0621 (Given - Provider: Queta Geiger, KARIN)1211 (Given - Provider: Baljit Sage RN)1757 (Given - Provider: Baljit Sage RN)2350 (Given - Provider: Queta Geiger, KARIN) 0517 (Given - Provider: Queta Geiger RN)1217 (Given - Provider: Leatha Hudson, KRAIN)1800 (Due) Continuous Medication Order 01/05/2022 01/06/2022 01/07/2022 [...] dose, Starting on 01/05/22 at 0844, Until 01/05/22 at 0845, Other 0845 (Given - Provider: Kathy Ness) melatonin tablet 3 mg 3 mg, Oral, NIGHTLY PRN, Starting on 01/06/22 at 0000, Until Discontinued, Sleep 0022 (Given [...] Active Tru Briceno MD Other Provider Active Geodetic Survey Director Relationship Specialty Start Date End Date XaviMarie patel [address] [place] [address] PCP - General Internal Medicine 01/07/22 Team Status: Active Member Role Status Dates Marie Castro , DO Primary Care Provider Active BRAD Miranda-Arnaldo Emergency Provider Active Sushant Cordon , DO Admit Provider, Attending Brandon griggs Active Team Status: Inactive Member Role Status Dates Marie Castro , DO Primary Care Provider Active Fredi Medrano MD Admit Provider, Attending Provider Active Lois Rios , KARIN Other Provider Active Kavya Velazquez , KARIN Other Provider Active Gay Angulo , RN Other Provider Active Buffy Hernandez , KARIN Other Provider Active Fransisca Bentley , KARIN Other Provider Active Diamond Henry , KARIN Other Provider Active Chris Holm MD Other Provider Active Vivian Zavala , GROUP TESTER Other Provider Active Samantha Wilson , DO Other Provider Active Eric Major MD Other Provider Active Sushant Cordon , DO Other Provider Active Audi Gaming MD Other Provider Active Cecily Keen MD Other Provider Active Nidia Wright , GROUP TESTER Other Provider Active Daniel Reyes MD Other Provider Active Roberto Sevilla MD Other Provider Active Humberto Diaz MD Other Provider Active Marzena Otto MD Other Provider Active Gray Gilliam , DO Other Provider Active Mc Cornejo MD Other Provider Active Raymundo Angeles MD Other Provider Active Tre Mccauley , VP OF DIGITAL MARKETING-C Other Provider Active Indra Guillory MD Other Provider Active David Fonseca MD Other Provider Active Hai Aguilera MD Other Provider Active Esau Corrales MD Other Provider Active Leda Julian , DO Other Provider Active Guevara Mills , DO Other Provider Active Jose Roberto Felder , DO Other Provider Active Anat Obika , GROUP TESTER Other Provider Active Warren Gross , DO Other Provider Active Nayeli Jimenez MD Other Provider Active Nicole Wolff , GROUP TESTER Other Provider Active Melisa Pimentel , GROUP TESTER Other Provider Active Vidya Robert MD Other Provider Active Howard Burrell MD Other Provider Active Immanuel John , DO Other Provider Active Rosario Murdock , GROUP TESTER Other Provider Active Mauricio Drake , DO Other Provider Active Erma Morillo RN Other Provider Active Geodetic Survey Director Relationship Specialty Start Date End Date Matthew Marie Tru, DO [address] [place] [address] PCP - General Internal Medicine 05/18/23 Team [...] DO Primary Care Provider Active Federico Davis , DO Attending Provider Active Team Status: Inactive Member Role Status Dates Marie Castro DO Primary Care Provider Active Herminio Lakhani MD Attending Provider Active Geodetic Survey Director Relationship Specialty Start Date End Date Marie Castro, DO [address] [place] [address] PCP - General Internal Medicine 05/18/23 Team [...] Vidya Robert MD Other Provider Active Start: eb4 Team Status: Inactive Member Role Status Dates [...] BE BASED ON THE PRIMARY CLINICAL RECORDS. [employer] provides no warranty or guarantee of the accuracy or completeness of information in this document.
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
[2023-11-07 16:24] VITALS: BP 149/71; PULSE 9; TEMP 36.8; O2SAT 95; BMI 20.8
== END 2023-11-07 16:38 | disposition home or self-care (01) ==
PROVIDERS: Emergency Provider Emergency Medicine Emergency Medical Services; PCP Internal Medicine
DX: Z48.00 Encounter for change or removal of nonsurgical wound dressing (principal); Z79.899 Other long term (current) drug therapy; Z87.19 Personal history of other diseases of the digestive system; I25.10 Atherosclerotic heart disease of native coronary artery without angina pectoris; E11.9 Type 2 diabetes mellitus without complications; I70.90 Unspecified atherosclerosis; Z95.5 Presence of coronary angioplasty implant and graft; Z90.81 Acquired absence of spleen; Z90.410 Acquired total absence of pancreas; Z87.891 Personal history of nicotine dependence
CPT/HCPCS: 99282

== ENCOUNTER 2023-12-27 09:15 | Outpatient (OUT) | payer OTHER, MEDICARE, SELFPAY ==
--- NOTE | 2023-12-27 09:27 | MR_ITS ---
[address] [address] Patient Name: ASHWINI VICKERS MRN: [id number] date: 1935 Sex: M Assigned Patient Location: MRI Current Patient Location: Accession/Order Number: [id number] Exam Date: 12/27/2023 09:55 Report Date: 12/28/2023 09:34 At the request of: NON-STAFF PHYSICIAN Procedure: MR cervical spine wo con EXAMINATION: MR cervical spine wo con HISTORY: Left Hand Weakness R29.898, Left Arm Paresthesia R20.2 COMPARISON: CT cervical spine 08/31/2023 TECHNIQUE: A variety of imaging planes and parameters were utilized for visualization of suspected pathology without and/or with intravenous Dotarem contrast based on examination type. FINDINGS: CRANIOCERVICAL AREA: Normal foramen magnum with no Chiari malformation. PARASPINAL AREA: Normal with no visible mass. BONES: Stable alignment of remote fractures of posterior tip of spinous process of C4 and C5. No edema. CORD: Normal caliber, contour, and signal intensity. CERVICAL DISC LEVELS: C2-C3: Early degenerative disc disease is present without focal protrusion or neural impingement. C3-C4: Mild central canal and marked right, moderate left foramen narrowing. Mild diffuse disc bulging without significant disc height reduction. Moderate degenerative right facet arthropathy. C4-C5: Mild central canal narrowing and mild posterior disc protrusion contacting and slightly indenting the anterior margin of the cord. Moderate foramen narrowing bilaterally. Mild diffuse disc bulging without disc at reduction. Mild degenerative facet arthropathy bilaterally. C5-C6: Moderate central canal and moderate-marked bilateral foramen narrowing. Mild diffuse disc bulging and bilateral uncovertebral joint spurring. Marked disc height reduction. Moderate degenerative facet arthropathy, right greater than left. C6-C7: Moderate central canal and right foramen narrowing. Marked left foramen narrowing. Mild diffuse disc bulging and marked disc height reduction. Uncovertebral joint spurring. Mild to moderate degenerative facet arthropathy. C7-T1:. No central canal narrowing. Moderate foramen narrowing bilaterally. Mild diffuse disc bulging without disc at reduction. Mild degenerative facet arthropathy. MR/MR cervical spine wo con IMPRESSION: 1. Multilevel degenerative disc disease, greatest at C5-6 and C6-C7. 2. Moderate to marked foramen narrowing C3-4 through C6-7. 3. Moderate central canal narrowing C5-6, C6-7. Electronically authenticated by: MIMA GUZMAN Date: 12/28/2023 09:34
== END 2023-12-27 09:16 | disposition home or self-care (01) ==
PROVIDERS: PCP Internal Medicine
DX: R29.898 Other symptoms and signs involving the musculoskeletal system (principal); R20.2 Paresthesia of skin; S59.912D Unspecified injury of left forearm, subsequent encounter; M50.30 Other cervical disc degeneration, unspecified cervical region
CPT/HCPCS: 72141

== ENCOUNTER 2024-01-21 00:01 | Emergency (ER) | payer MEDICARE, OTHER, SELFPAY ==
[2024-01-21] VITALS (30 sets, daily range): BP systolic 110–174; BP diastolic 66–105; PULSE 63–150; TEMP 35.2–36.3; O2SAT 66–100; BMI 24.4
[2024-01-21 00:27] LABS: Glucometer 142 mg/dL (74-106)
--- NOTE | 2024-01-21 00:29 | ED_ITS ---
HPI HPI - General Adult General Chief complaint: Altered Mental Status Stated complaint: LOW BLOOD SUGAR Time Seen by Provider: 01/21/24 00:22 History of Present Illness HPI narrative: patient is not able to provide any history. Squad found him unresponsive at home with low BS on monitor. IV was started and he was given D10 and he arrives awake with BS 140s. States he does not remember what happen. Denies headache or neck pain. Has mild scratches on the left knee. Did complain of left leg pain initially but no longer. No weakness. No abdominal pain Related Data Home Medications ?Medication ?Instructions ?Recorded ?Confirmed clopidogrel 75 mg tablet 75 mg PO .qd 08/21/23 11/05/23 emeqcd-cagthlah-etqwcbm 2 cap PO TIDWM 08/21/23 11/05/23 24,000-76,000-120,000 unit capsule,delayed rel (Creon) nitroglycerin 0.4 mg sublingual 0.4 mg sublingual Q5M PRN chest 08/21/23 11/05/23 tablet pain tamsulosin 0.4 mg capsule 0.4 mg PO QAM 08/21/23 11/05/23 atorvastatin 80 mg tablet 80 mg PO DAILY 11/05/23 11/05/23 valsartan 80 mg tablet 80 mg PO DAILY 11/05/23 11/05/23 Previous Rx's ?Medication ?Instructions ?Recorded cephalexin 500 mg capsule 500 mg PO TID 7 days #21 caps 11/05/23 Allergies Allergy/AdvReac Type Severity Reaction Status Date / Time No Known Drug Allergies Allergy Verified 11/07/23 16:30 Opioid HPI Opioid Management Most Recent Opioid Data: Last Pain Scale 8 11/05/23 23:33 Review of Systems ROS Status of ROS unobtainable due to mental status [facility] Medical History (Updated 01/21/24 @ 06:43 by Paul Argueta MD) H/O chronic pancreatitis ?Z87.19 - Personal history of other diseases of the digestive system (ICD-10) CAD (coronary artery disease) ?I25.10 - Atherosclerotic heart disease of [place] coronary artery without angina pectoris (ICD-10) Insulin dependent diabetes mellitus Atherosclerosis ?I70.90 - Unspecified atherosclerosis (ICD-10) Closed fracture of right hip requiring operative repair ?S72.001A - Fracture of unspecified part of neck of right femur, initial encounter for closed fracture (ICD-10) Diabetes ?E11.9 - Type 2 diabetes mellitus without complications (ICD-10) Surgical History (Updated 08/22/23 @ 10:52 by Lamar Mahan) H/O heart artery stent ?Z95.5 - Presence of coronary angioplasty implant and graft (ICD-10) 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 (ICD-10) 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) Social History Smoking status: Former smoker Exam Constitutional Vital Signs, click to edit/add: Last Vital Signs Temp 97.4 F L 01/21/24 01:51 Pulse 73 01/21/24 06:00 Resp 7 L 01/21/24 06:00 BP 132/73 01/21/24 06:00 Pulse Ox 91 L 01/21/24 06:00 O2 Del Method Room Air 01/21/24 00:30 Common normals: no apparent distress, average body habitus, alert and well nourished HENNJ Common normals: normocephalic and head/scalp atraumatic Eye Common normals: EOMs intact bilaterally and conjunctivae normal Respiratory Common normals: normal respiratory effort, no retractions, no use of accessory muscles and clear to auscultation bilaterally Cardio Common normals: regular rate, regular rhythm, S1 normal heart sound and S2 normal heart sound GI Common normals: Normal to inspection, nondistended, normoactive bowel sounds present, soft to palpation and non-tender Extremity Common normals: full ROM Other: minor abrasions/scratches left knee. FROM of the knee without discomfort Neuro Sensorium/orientation: awake, alert, oriented to person and oriented to place Course Vital Signs Vital signs: Vital Signs Pulse Rate 81 01/21/24 00:18 Respiratory Rate 23 H 01/21/24 00:18 Pulse Oximetry 99 01/21/24 00:18 Temperature 97.4 F L 01/21/24 01:51 Pulse Rate 73 01/21/24 06:00 Respiratory Rate 7 L 01/21/24 06:00 Blood Pressure 132/73 01/21/24 06:00 Pulse Oximetry 91 L 01/21/24 06:00 Oxygen Delivery Method Room Air 01/21/24 00:30 Medical Decision Making MDM Narrative Medical decision making narrative: patient found on the floor when his family return home. Squad found him unresponsive . meter at seen read low for POC BS. IV established and patient given D10. Arrives to the ER awake but confused as to what happened. complains of pain left wrist. left wrist with ecchymosis and swelling. Head without evidence of injury. No complaint of chest pain or dyspnea. Past history of CAD and IDDM. workup demonstrated elevated elevated troponin and his blood sugar decreased again requiring IV D50. CT brain and neck without acute changes. Cxray with findings of atypical pneumonia possibly viral. COVID19 and influenza neg. family informed of the plan to transfer for cardiac care. [facility] contacted and they are without beds. Contacted [facility] and waiting for call back from Cardiology cardiology did not call back. Discussed with hospitalist at [facility] and patient accepted in transfer Lab Data Labs: Lab Results 01/21/24 01/21/24 01/21/24 Range/Units 00:08 00:20 00:50 WBC 15.9 H (4.0-11.0) 10^3/uL RBC 4.91 (4.70-6.10) 10^6/uL Hgb 12.1 L (14.0-18.0) g/dL Hct 35.8 L (42.0-54.0) % MCV 72.9 L (80.0-94.0) fL MCH 24.6 L (25.9-34.0) pg MCHC 33.8 (29.9-35.2) g/dL RDW 20.8 H (11.0-15.0) % Plt Count 307 (150-450) 10^3/uL Neut % (Auto) 82.7 H (43.0-75.0) % Lymph % (Auto) 6.9 L (20.5-60.0) % [place] % (Auto) 9.3 (1.7-12.0) % Eos % (Auto) 0.3 L (0.9-7.0) % Baso % (Auto) 0.2 (0.2-2.0) % Neut # (Auto) 13.2 H (1.4-6.5) 10^3/uL Lymph # (Auto) 1.1 L (1.2-3.8) 10^3/uL [place] # (Auto) 1.5 H (0.3-0.8) 10^3/uL Eos # (Auto) 0.0 (0.0-0.7) 10^3/uL Baso # (Auto) 0.0 (0.0-0.1) 10^3/uL Abs Immat Gran (auto) 0.09 H (0.00-0.03) 10^3/uL Imm/Tot Granulo (auto) 0.6 H (0.0-0.5) % Sodium 135 L (136-145) mmol/L Potassium 3.8 (3.5-5.1) mmol/L Chloride 99 (98-107) mmol/L Carbon Dioxide 25.4 (21.0-32.0) mmol/L Anion Gap 14.4 BUN 21.0 H (7.0-18.0) mg/dL Creatinine 1.04 (0.70-1.30) mg/dL Est GFR ( Amer) >60 (>=60) Est GFR (Non-Af Amer) >60 (>=60) BUN/Creatinine Ratio 20.2 Glucose 102 (74-106) mg/dL Lactate 3.5 H* (0.4-2.0) mmol/L Calcium 8.8 (8.5-10.1) mg/dL Ammonia 13 (11-32) umol/L Myoglobin (16-96) ng/mL Troponin I High Sens 120.3 H* (4.0-76.1) pg/mL Urine Color Lt. yellow (YELLOW) Urine Clarity Clear (CLEAR) Urine pH 6.0 (5.0-9.0) Ur Specific [place] 1.020 (1.005-1.025) Urine Protein 100 A (NEG/TRACE) mg/dL Urine Glucose (UA) Negative (NEGATIVE) mg/dL Urine Ketones Negative (NEGATIVE) mg/dL Urine Occult Blood Moderate A (NEGATIVE) Urine Nitrite Negative (NEGATIVE) Urine Bilirubin Negative (NEGATIVE) Urine Urobilinogen 0.2 (0.2-1.0) EU/dL Ur Leukocyte Esterase Negative (NEGATIVE) Urine RBC 5-10 A (0-2) #/HPF Urine WBC 0-2 A (NONE SEEN) #/HPF Ur Squamous Epith Cells None seen (NONE/RARE) #/LPF Urine Crystals None seen (None Seen) #/HPF Urine Bacteria None seen (NONE SEEN) #/HPF Urine Casts None seen (NONE SEEN) #/LPF Urine Mucus None seen (NONE SEEN) Ur Culture Indicated? No Salicylates 2.9 (<=19.9) mg/dL Acetaminophen <2.0 L (10.0-30.0) ug/mL Ethanol Quant <3 mg/dL Influenza Type A Ag Influenza Type B Ag SARS-CoV-2 Ag (CV2AG) (NEGATIVE) POC Glucose 142 H (74-106) mg/dL 01/21/24 01/21/24 01/21/24 Range/Units 01:50 02:55 04:01 WBC (4.0-11.0) 10^3/uL RBC (4.70-6.10) 10^6/uL Hgb (14.0-18.0) g/dL Hct (42.0-54.0) % MCV (80.0-94.0) fL MCH (25.9-34.0) pg MCHC (29.9-35.2) g/dL RDW (11.0-15.0) % Plt Count (150-450) 10^3/uL Neut % (Auto) (43.0-75.0) % Lymph % (Auto) (20.5-60.0) % [place] % (Auto) (1.7-12.0) % Eos % (Auto) (0.9-7.0) % Baso % (Auto) (0.2-2.0) % Neut # (Auto) (1.4-6.5) 10^3/uL Lymph # (Auto) (1.2-3.8) 10^3/uL [place] # (Auto) (0.3-0.8) 10^3/uL Eos # (Auto) (0.0-0.7) 10^3/uL Baso # (Auto) (0.0-0.1) 10^3/uL Abs Immat Gran (auto) (0.00-0.03) 10^3/uL Imm/Tot Granulo (auto) (0.0-0.5) % Sodium (136-145) mmol/L Potassium (3.5-5.1) mmol/L Chloride (98-107) mmol/L Carbon Dioxide (21.0-32.0) mmol/L Anion Gap BUN (7.0-18.0) mg/dL Creatinine (0.70-1.30) mg/dL Est GFR ( Amer) (>=60) Est GFR (Non-Af Amer) (>=60) BUN/Creatinine Ratio Glucose (74-106) mg/dL Lactate 1.2 (0.4-2.0) mmol/L Calcium (8.5-10.1) mg/dL Ammonia (11-32) umol/L Myoglobin 5293 H* (16-96) ng/mL Troponin I High Sens 210.3 H* (4.0-76.1) pg/mL Urine Color (YELLOW) Urine Clarity (CLEAR) Urine pH (5.0-9.0) Ur Specific [place] (1.005-1.025) Urine Protein (NEG/TRACE) mg/dL Urine Glucose (UA) (NEGATIVE) mg/dL Urine Ketones (NEGATIVE) mg/dL Urine Occult Blood (NEGATIVE) Urine Nitrite (NEGATIVE) Urine Bilirubin (NEGATIVE) Urine Urobilinogen (0.2-1.0) EU/dL Ur Leukocyte Esterase (NEGATIVE) Urine RBC (0-2) #/HPF Urine WBC (NONE SEEN) #/HPF Ur Squamous Epith Cells (NONE/RARE) #/LPF Urine Crystals (None Seen) #/HPF Urine Bacteria (NONE SEEN) #/HPF Urine Casts (NONE SEEN) #/LPF Urine Mucus (NONE SEEN) Ur Culture Indicated? Salicylates (<=19.9) mg/dL Acetaminophen (10.0-30.0) ug/mL Ethanol Quant mg/dL Influenza Type A Ag Influenza Type B Ag SARS-CoV-2 Ag (CV2AG) (NEGATIVE) POC Glucose 108 H 74 (74-106) mg/dL 01/21/24 Range/Units 05:10 WBC (4.0-11.0) 10^3/uL RBC (4.70-6.10) 10^6/uL Hgb (14.0-18.0) g/dL Hct (42.0-54.0) % MCV (80.0-94.0) fL MCH (25.9-34.0) pg MCHC (29.9-35.2) g/dL RDW (11.0-15.0) % Plt Count (150-450) 10^3/uL Neut % (Auto) (43.0-75.0) % Lymph % (Auto) (20.5-60.0) % [place] % (Auto) (1.7-12.0) % Eos % (Auto) (0.9-7.0) % Baso % (Auto) (0.2-2.0) % Neut # (Auto) (1.4-6.5) 10^3/uL Lymph # (Auto) (1.2-3.8) 10^3/uL [place] # (Auto) (0.3-0.8) 10^3/uL Eos # (Auto) (0.0-0.7) 10^3/uL Baso # (Auto) (0.0-0.1) 10^3/uL Abs Immat Gran (auto) (0.00-0.03) 10^3/uL Imm/Tot Granulo (auto) (0.0-0.5) % Sodium (136-145) mmol/L Potassium (3.5-5.1) mmol/L Chloride (98-107) mmol/L Carbon Dioxide (21.0-32.0) mmol/L Anion Gap BUN (7.0-18.0) mg/dL Creatinine (0.70-1.30) mg/dL Est GFR ( Amer) (>=60) Est GFR (Non-Af Amer) (>=60) BUN/Creatinine Ratio Glucose (74-106) mg/dL Lactate (0.4-2.0) mmol/L Calcium (8.5-10.1) mg/dL Ammonia (11-32) umol/L Myoglobin (16-96) ng/mL Troponin I High Sens (4.0-76.1) pg/mL Urine Color (YELLOW) Urine Clarity (CLEAR) Urine pH (5.0-9.0) Ur Specific [place] (1.005-1.025) Urine Protein (NEG/TRACE) mg/dL Urine Glucose (UA) (NEGATIVE) mg/dL Urine Ketones (NEGATIVE) mg/dL Urine Occult Blood (NEGATIVE) Urine Nitrite (NEGATIVE) Urine Bilirubin (NEGATIVE) Urine Urobilinogen (0.2-1.0) EU/dL Ur Leukocyte Esterase (NEGATIVE) Urine RBC (0-2) #/HPF Urine WBC (NONE SEEN) #/HPF Ur Squamous Epith Cells (NONE/RARE) #/LPF Urine Crystals (None Seen) #/HPF Urine Bacteria (NONE SEEN) #/HPF Urine Casts (NONE SEEN) #/LPF Urine Mucus (NONE SEEN) Ur Culture Indicated? Salicylates (<=19.9) mg/dL Acetaminophen (10.0-30.0) ug/mL Ethanol Quant mg/dL Influenza Type A Ag Negative Influenza Type B Ag Negative SARS-CoV-2 Ag (CV2AG) Negative (NEGATIVE) POC Glucose (74-106) mg/dL Imaging Data Chest x-ray: Radiologist's impression: ITS Impressions Cervical Spine CT 01/21/24 00:33 IMPRESSION: 1. No acute fracture or traumatic malalignment. 2. Chronic cervical spondylosis and degenerative changes as discussed. See details above. 3. Other chronic findings as discussed. Electronically authenticated by: ARLETTE COHEN Date: 01/21/2024 04:12 Chest X-Ray 01/21/24 00:33 IMPRESSION: Subtle interstitial opacities throughout left lung and right lower lobe, new since 08/31/2023. In the acute setting, rule out atypical pneumonia. Possibly viral. Follow up short-term for resolution. This report was generated with voice recognition software. Effort has been made to ensure accuracy of this report, however, occasional wording errors may persist. Please contact our office with any questions. Electronically authenticated by: ARLETTE COHEN Date: 01/21/2024 02:[address] 01/21/24 00:33 IMPRESSION: 1. Changes of chronic small vessel ischemia in the periventricular white matter with secondary bilateral cerebral cortical atrophy. 2. No acute intracranial pathology. Electronically authenticated by: ARLETTE COHEN Date: 01/21/2024 02:01 Elbow X-Ray 01/21/24 00:54 IMPRESSION: No acute bone or joint findings. Electronically authenticated by: ARLETTE COHEN Date: 01/21/2024 02:03 Wrist X-Ray 01/21/24 00:54 IMPRESSION: 1. Presumed acute nondisplaced intra-articular fracture of radial styloid process. There is significant adjacent and surrounding soft tissue swelling and edema at the radius. 2. 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 No acute subluxation or dislocation of joints. Electronically authenticated by: ARLETTE COHEN Date: 01/21/2024 02:00 Critical Care Time Critical Care Time Total Critical Care Time: 45 Discharge Plan Discharge Chief Complaint: Altered Mental Status Clinical Impression: Elevated troponin, Fracture of left wrist, Hypoglycemic episode in patient with diabetes mellitus, Rhabdomyolysis [facility]
--- NOTE | 2024-01-21 00:30 | ECG_ITS ---
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 Repeat ECG is requested 9150 abnormal ECG Electronically Signed On 01-21-2024 6:49:55 EDT by GAVINO COWART
--- NOTE | 2024-01-21 00:33 | XR_ITS ---
The [place] [id number] Patient Name: ASHWINI VICKERS MRN: [id number] date: 1935 Sex: M Assigned Patient Location: ER Current Patient Location: ER Accession/Order Number: [id number] Exam Date: 01/21/2024 01:20 Report Date: 01/21/2024 02:02 At the request of: KEAGAN JOHNSON Procedure: XR chest 1V SINGLE VIEW CHEST: 01/21/2024 1:20 AM EDT CLINICAL HISTORY:hypoglycemia COMPARISONS: Portable chest 08/31/2023 TECHNIQUE: Single frontal view of the chest, utilizing portable technique. Portable radiography should be considered a technically compromised study. Strongly consider dedicated PA and lateral chest radiographs, as clinically indicated. FINDINGS: LINES AND TUBES: None appreciated. CARDIAC SILHOUETTE: Within normal limits. MEDIASTINAL AND HILAR CONTOUR: Within normal limits. PULMONARY PARENCHYMA AND PLEURA: No pneumothorax or pleural effusion. Development of mild interstitial opacities left lung from upper lower lobe slightly more prominent left upper lobe and minimally right lower lobe. Correlate for atypical pneumonia. Lungs otherwise clear. OSSEOUS STRUCTURES:Nothing significant. OTHER COMMENTS:None. XR/XR chest 1V IMPRESSION: Subtle interstitial opacities throughout left lung and right lower lobe, new since 08/31/2023. In the acute setting, rule out atypical pneumonia. Possibly viral. Follow up short-term for resolution. This report was generated with voice recognition software. Effort has been made to ensure accuracy of this report, however, occasional wording errors may persist. Please contact our office with any questions. Electronically authenticated by: ARLETTE COHEN Date: 01/21/2024 02:02
--- NOTE | 2024-01-21 00:33 | ECG_ITS ---
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
--- NOTE | 2024-01-21 00:33 | CT_ITS ---
The [address] [address] Patient Name: ASHWINI VICKERS MRN: [id number] date: 1935 Sex: M Assigned Patient Location: ER Current Patient Location: ER Accession/Order Number: [id number] Exam Date: 01/21/2024 01:30 Report Date: 01/21/2024 02:01 At the request of: KEAGAN JOHNSON Procedure: CT head/brain wo con CT OF THE BRAIN WITHOUT CONTRAST: 01/21/2024 1:30 AM EDT HISTORY: 88-year-old with confusion. R41.82; altered mental status. Hypoglycemic. TECHNIQUE: Contiguous axially collimated images were obtained through the intracranial compartment, from the vertex through the foramen magnum. Coronal and Sagittal reformatted images were prepared on a separate workstation and reviewed on the PACS for anatomic correlation. No contrast was administered. This CT exam was performed using one or more of the following dose reduction techniques: Automated exposure control, adjustment of the mA and/or kV according to patient size, or use of iterative reconstruction technique. Thin section coronal and sagittal images were reconstructed from the axial data set. All images were reviewed and interpreted. COMPARISON: CT brain without 08/31/2023 FINDINGS: There is no intracranial hemorrhage or abnormal extra-axial fluid collection. To the extent of evaluated with noncontrast technique, there is no mass lesion appreciated. There is no mass-effect or shift of midline structures. There is global brain volume loss with prominence of the ventricles and CSF spaces. There is no evidence of hydrocephalus. There is no effacement of the basal cisterns. No evidence of acute ischemia. Patchy white matter low attenuation is nonspecific, but likely related to chronic small vessel ischemic change. There is no evidence of a lacunar infarct. The posterior fossa, brain stem, and fourth ventricle are normal. There is no tonsillar ectopy. The calvarium is intact, without destructive lesion or depressed fracture. No acute fractures. No scalp swelling or edema. Bilateral scleral orbital calcifications noted incidentally. The mastoid air cells are well-aerated. The paranasal sinuses are normally aerated. CT/CT head/brain wo con IMPRESSION: 1. Changes of chronic small vessel ischemia in the periventricular white matter with secondary bilateral cerebral cortical atrophy. 2. No acute intracranial pathology. Electronically authenticated by: ARLETTE COHEN Date: 01/21/2024 02:01
--- NOTE | 2024-01-21 00:33 | CT_ITS ---
The [address] [address] Patient Name: ASHWINI VICKERS MRN: [id number] date: 1935 Sex: M Assigned Patient Location: ER Current Patient Location: Accession/Order Number: [id number] Exam Date: 01/21/2024 01:30 Report Date: 01/21/2024 04:12 At the request of: KEAGAN JOHNSON Procedure: CT cervical spine wo con CT CERVICAL SPINE WITHOUT : 01/21/2024 1:30 AM EDT HISTORY: Neck pain. TECHNIQUE: Thin section axial CT images were obtained from the foramen magnum to the T1 vertebral body. This CT exam was performed using one or more of the following dose reduction techniques: Automated exposure control, adjustment of the mA and/or kV according to patient size, or use of iterative reconstruction technique. Thin section coronal and sagittal images were reconstructed from the axial data set. All images were reviewed and interpreted. CONTRAST: None. COMPARISON: None. FINDINGS: Old healed the C4 and C5 spinous process fractures. There are no acute fractures. Normal height and alignment of cervical vertebrae. Normal skull base and odontoid and posterior fossa structures. 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 Diffuse osseous demineralization suspected osteoporosis. There is no destructive osseous lesion. Normal anatomic alignment is maintained. There is no spondylolisthesis. Prevertebral paraspinal soft tissues are normal. Severe joint loss and narrowing of the anterior C1 arch and odontoid. There is chronic pannus and calcification posterior to the odontoid. Could be CPPD arthropathy related. Could be gout. C2-3: Diffuse bilateral facet joints. No central canal or neural foraminal narrowing. C3-4: Severe right uncovertebral joint and facet arthropathy causing severe right neural foraminal stenosis. Normal discs. No central canal or left neural foraminal narrowing. C4-5: Anterior endplate spondylosis. Mild disc bulge with preserved disc height. Severe left facet arthropathy. Mild left neural foraminal narrowing. No central canal or right neural foraminal stenosis. C5-6: Severe degenerative disc height loss with bilateral uncinate process hypertrophy, greater on the left. Preserved facets. Moderate to severe left neural foraminal stenosis. No canal or right neural foraminal narrowing. C6-7: Degenerative disc height loss with disc osteophyte bulge. Mild uncinate process hypertrophy. Mild neural foraminal narrowing bilaterally without canal stenosis. C7-T1: No central canal or neural foraminal narrowing. CT/CT cervical spine wo con IMPRESSION: 1. No acute fracture or traumatic malalignment. 2. Chronic cervical spondylosis and degenerative changes as discussed. See details above. 3. Other chronic findings as discussed. Electronically authenticated by: ARLETTE COHEN Date: 01/21/2024 04:12
[2024-01-21 00:52] LABS: Bilirubin Urine NEGATIVE (NEGATIVE); Blood Urine MODERATE (NEGATIVE); Clarity Urine CLEAR (CLEAR); Color Urine LT. YELLOW (YELLOW); Glucose Urine UA NEGATIVE (NEGATIVE); Ketones Urine NEGATIVE (NEGATIVE); Leukocyte Esterase Urine NEGATIVE (NEGATIVE); Nitrite Urine NEGATIVE (NEGATIVE); Protein Urine 100 mg/dL (NEG/TRACE); Urobilinogen Urine 0.2 EU/dL (0.2-1.0)
--- NOTE | 2024-01-21 00:54 | XR_ITS ---
The [place] [id number] Patient Name: ASHWINI VICKERS MRN: [id number] date: 1935 Sex: M Assigned Patient Location: ER Current Patient Location: Accession/Order Number: [id number] Exam Date: 01/21/2024 01:20 Report Date: 01/21/2024 02:00 At the request of: KEAGAN JOHNSON Procedure: XR wrist LT min 3V EXAM: XR wrist LT min 3V HISTORY: fall COMPARISON: None. TECHNIQUE: 3 views of left wrist submitted. FINDINGS: There is a subtle fracture at radial styloid process. There is significant overlying soft tissue swelling along the radial/lateral aspect of wrist and distal forearm likely from recent trauma. No displacement. Fracture is intra-articular. There is chronic ulnar positive variance estimated at 6 mm. There are multiple chronic scattered ossified loose bodies around the distal radioulnar joint, one proximal and a few in the distal joint and radiocarpal joint measuring 2 to 3 mm each. Approximately 3 noted. No other fractures are seen. There is osteoarthritis of radiocarpal joint and distal radioulnar joint. Severe osteoarthritis of STT joints and moderate at first CMC joint. No acute subluxation or dislocation of joints. There is also some soft tissue swelling around the ulna and dorsal wrist. More prominent radial aspect. XR/XR wrist LT min 3V IMPRESSION: 1. Presumed acute nondisplaced intra-articular fracture of radial styloid process. There is significant adjacent and surrounding soft tissue swelling and edema at the radius. 2. 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 No acute subluxation or dislocation of joints. Electronically authenticated by: ARLETTE COHEN Date: 01/21/2024 02:00
--- NOTE | 2024-01-21 00:54 | XR_ITS ---
The [address] [address] Patient Name: ASHWINI VICKERS MRN: [id number] date: 1935 Sex: M Assigned Patient Location: ER Current Patient Location: ER Accession/Order Number: [id number] Exam Date: 01/21/2024 01:20 Report Date: 01/21/2024 02:03 At the request of: KEAGAN JOHNSON Procedure: XR elbow LT min 3V EXAM: XR elbow LT min 3V HISTORY: fall COMPARISON: None. TECHNIQUE: 3 view left elbow. FINDINGS: Adequate bone mineralization for age. No acute fracture. Well-preserved joints. No narrowing or dislocation or subluxation. No joint effusion or fat pad elevation. A small olecranon enthesophytes at the distal triceps insertion. No lytic or blastic or destructive bone process. Mild hypertrophic bone changes at medial epicondyle. Correlate for chronic medial epicondylitis. No other osseous abnormality or pathology. XR/XR elbow LT min 3V IMPRESSION: No acute bone or joint findings. Electronically authenticated by: ARLETTE COHEN Date: 01/21/2024 02:03
[2024-01-21 00:56] LABS: Urine Microscopic Indicated YES
[2024-01-21 00:58] LABS: Lactate/Lactic Acid 3.5 mmol/L (0.4-2.0)
[2024-01-21 01:01] LABS: Bacteria Urine NONE SEEN #/HPF (NONE SEEN); Cast Seen? NONE SEEN #/LPF (NONE SEEN); Crystals Seen? None Seen #/HPF (None Seen); Mucus Urine NONE SEEN (NONE SEEN); Squamous Epithelial Cell Urine NONE SEEN #/LPF (NONE/RARE); Urine Culture Indicated NO; WBC Urine 0-2 #/HPF (NONE SEEN)
[2024-01-21 01:04] LABS: Anion Gap 14.4; BUN Creatinine Ratio 20.2; Calcium 8.8 mg/dL (8.5-10.1); Carbon Dioxide 25.4 mmol/L (21.0-32.0); Chloride 99 mmol/L (98-107); Estimated GFR (African America >60 (>=60); Estimated GFR (Non-African Ame >60 (>=60); Glucose 102 mg/dL (74-106); Potassium 3.8 mmol/L (3.5-5.1); Salicylate 2.9 mg/dL (<=19.9); Sodium 135 mmol/L (136-145)
--- NOTE | 2024-01-21 01:08 | PC.NURSE ---
Unable to obtain oral temperature, rectal temperature of 95.4. Alvarez hugger blanket applied, Dr. Argueta notified.
[2024-01-21 01:12] LABS: Basophils Percent Auto 0.2 % (0.2-2.0); Eosinophils Percent Auto 0.3 % (0.9-7.0); Hematocrit 35.8 % (42.0-54.0); Hemoglobin 12.1 g/dL (14.0-18.0); Immature Granulocytes Abs Auto 0.09 10^3/uL (0.00-0.03); Immature Granulocytes Pct Auto 0.6 % (0.0-0.5); Lymphocytes Absolute Auto 1.1 10^3/uL (1.2-3.8); Lymphocytes Percent Auto 6.9 % (20.5-60.0); Mean Corpuscular HGB Conc 33.8 g/dL (29.9-35.2); Mean Corpuscular Hemoglobin 24.6 pg (25.9-34.0); Mean Corpuscular Volume 72.9 fL (80.0-94.0); Monocytes Absolute Auto 1.5 10^3/uL (0.3-0.8); Monocytes Percent Auto 9.3 % (1.7-12.0); Neutrophils Absolute Auto 13.2 10^3/uL (1.4-6.5); Neutrophils Percent Auto 82.7 % (43.0-75.0); Platelet Count 307 10^3/uL (150-450); Red Blood Count 4.91 10^6/uL (4.70-6.10); Red Cell Distribution Width 20.8 % (11.0-15.0); White Blood Count 15.9 10^3/uL (4.0-11.0)
[2024-01-21] MEDS: DEXTROSE 50 %-WATER 25 GM/50 ML SYRINGE IV (01:12)
[2024-01-21 01:15] LABS: Acetaminophen <2.0 ug/mL (10.0-30.0); Ethanol <3 mg/dL; Troponin I High Sensitivity 120.3 pg/mL (4.0-76.1)
[2024-01-21 01:25] LABS: Ammonia 13 umol/L (11-32)
[2024-01-21 01:51] LABS: Glucometer 108 mg/dL (74-106)
[2024-01-21 03:20] LABS: Lactate/Lactic Acid 1.2 mmol/L (0.4-2.0)
[2024-01-21 03:24] LABS: Troponin I High Sensitivity 210.3 pg/mL (4.0-76.1)
--- NOTE | 2024-01-21 04:00 | ECG_ITS ---
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
[2024-01-21 04:02] LABS: Glucometer 74 mg/dL (74-106)
[2024-01-21] MEDS: HYDROCODONE/ACET 5-325 MG TABLET 2 TAB PO (05:04)
[2024-01-21] MEDS: DEXTROSE 5%-0.9% NACL 1,000 ML IV.SOLN 1000 ML IV (05:04)
[2024-01-21 05:16] LABS: Myoglobin 5293 ng/mL (16-96)
[2024-01-21 05:30] LABS: Influenza Virus A Antigen Negative; Influenza Virus B Antigen Negative; Internal Control Within Normal Limits; SARS-CoV-2 Ag NEGATIVE (NEGATIVE)
[2024-01-21] MEDS: HEPARIN SODIUM (PORCINE) 5,000 UNIT/ML VIAL 4000 UNIT IV (06:44)
[2024-01-21] MEDS: HEPARIN SODIUM,PORCINE/D5W 25,000 UNIT/500 ML IV.SOLN 19.595 UNIT IV (06:45)
[2024-01-21 07:14] LABS: Glucometer 268 mg/dL (74-106)
[2024-01-21] MEDS: CEFTRIAXONE 1,000 MG in 0.9 % SODIUM CHLORIDE 50 ML 100 MG IV (07:32)
[2024-01-21] MEDS: AZITHROMYCIN 500 MG in 0.9 % SODIUM CHLORIDE 250 ML 250 MG IV (08:11)
== END 2024-01-21 08:48 | disposition short-term general hospital (02) ==
PROVIDERS: Emergency Provider Internal Medicine; PCP Internal Medicine
DX: R79.89 Other specified abnormal findings of blood chemistry (principal); E11.649 Type 2 diabetes mellitus with hypoglycemia without coma; M62.82 Rhabdomyolysis; S52.515A Nondisplaced fracture of left radial styloid process, initial encounter for closed fracture; J18.9 Pneumonia, unspecified organism; X58.XXXA Exposure to other specified factors, initial encounter; Z87.891 Personal history of nicotine dependence; I25.10 Atherosclerotic heart disease of native coronary artery without angina pectoris; Z20.822 Contact with and (suspected) exposure to COVID-19; Z79.899 Other long term (current) drug therapy
CPT/HCPCS: 36415; 70450; 71045; 72125; 73080; 73110; 80048; 80179; 80320; 80329; 81001; 82140; 83605; 83874; 84484; 85025; 87804; 87811; 93005; 96365; 96367; 96375; 99285; J0456; J0696; J1644

== ENCOUNTER 2024-07-21 15:16 | Outpatient (OUT) | payer MEDICARE, OTHER, SELFPAY ==
[2024-07-21 16:21] LABS: Anion Gap 16.6; BUN Creatinine Ratio 19.6; Calcium 8.8 mg/dL (8.5-10.1); Carbon Dioxide 27.6 mmol/L (21.0-32.0); Chloride 99 mmol/L (98-107); Estimated GFR (African America >60 (>=60 mL/min/1.73m^2); Estimated GFR (Non-African Ame >60 (>=60 mL/min/1.73m^2); Glucose 297 mg/dL (74-106); Potassium 4.2 mmol/L (3.5-5.1); Sodium 139 mmol/L (136-145)
== END 2024-07-21 15:17 | disposition home or self-care (01) ==
LOC: LAB 15:18
PROVIDERS: PCP Internal Medicine; Visit Provider Nurse Practitioner Adult Health
DX: I50.22 Chronic systolic (congestive) heart failure (principal)
CPT/HCPCS: 36415; 80048

== ENCOUNTER 2024-09-13 09:06 | Outpatient (OUT) | payer MEDICARE, OTHER, SELFPAY ==
[2024-09-13 10:19] LABS: Anion Gap 13.1; BUN Creatinine Ratio 17.6; Carbon Dioxide 31.2 mmol/L (21.0-32.0); Chloride 99 mmol/L (98-107); Estimated GFR (African America >60 (>=60 mL/min/1.73m^2); Estimated GFR (Non-African Ame 52 (>=60 mL/min/1.73m^2); Glucose 385 mg/dL (74-106); Potassium 4.3 mmol/L (3.5-5.1); Sodium 139 mmol/L (136-145)
== END 2024-09-13 09:07 | disposition home or self-care (01) ==
LOC: LAB 09:08
PROVIDERS: PCP Internal Medicine; Visit Provider Internal Medicine
DX: R06.00 Dyspnea, unspecified (principal); I25.5 Ischemic cardiomyopathy; Z95.810 Presence of automatic (implantable) cardiac defibrillator; I25.10 Atherosclerotic heart disease of native coronary artery without angina pectoris; I10 Essential (primary) hypertension
CPT/HCPCS: 36415; 80048; 83880

== ENCOUNTER 2024-09-26 09:00 | Emergency (ER) | payer MEDICARE, OTHER, SELFPAY ==
[2024-09-26 09:03] VITALS: BP 167/92; PULSE 60; TEMP 36.4; O2SAT 96; BMI 20.8
[2024-09-26 09:16] LABS: Glucometer 175 mg/dL (74-106)
--- NOTE | 2024-09-26 09:19 | ED_ITS ---
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 Patient when arrived to us mentioned that his blood sugar today is running better than yesterday he has not increased his insulin since yesterday by his communications department head, the patient did not have any complaint at all Related Data Home Medications ?Medication ?Instructions ?Recorded ?Confirmed clopidogrel 75 mg tablet 75 mg PO .qd 08/21/23 11/05/23 [id number] 2 cap PO TIDWM 08/21/23 11/05/23 24,000-76,000-120,000 unit capsule,delayed rel (Creon) nitroglycerin 0.4 mg sublingual 0.4 mg sublingual Q5M PRN chest 08/21/23 11/05/23 tablet pain tamsulosin 0.4 mg capsule 0.4 mg PO QAM 08/21/23 11/05/23 atorvastatin 80 mg tablet 80 mg PO DAILY 11/05/23 11/05/23 valsartan 80 mg tablet 80 mg PO DAILY 11/05/23 11/05/23 Previous Rx's ?Medication ?Instructions ?Recorded cephalexin 500 mg capsule 500 mg PO TID 7 days #21 caps 11/05/23 Allergies Allergy/AdvReac Type Severity Reaction Status Date / Time No Known Drug Allergies Allergy Verified 09/26/24 09:11 Review of Systems ROS Status of ROS 10 or more systems reviewed and unremark able except as noted in history and below [facility] Medical History (Updated 09/26/24 @ 09:19 by Rayne Egan MD) H/O chronic pancreatitis ?Z87.19 - Personal history of other diseases of the digestive system (ICD-10) CAD (coronary artery disease) ?I25.10 - Atherosclerotic heart disease of [place] coronary artery without angina pectoris (ICD-10) Insulin dependent diabetes mellitus Atherosclerosis ?I70.90 - Unspecified atherosclerosis (ICD-10) Closed fracture of right hip requiring operative repair ?S72.001A - Fracture of unspecified part of neck of right femur, initial encounter for closed fracture (ICD-10) Diabetes ?E11.9 - Type 2 diabetes mellitus without complications (ICD-10) Surgical History (Updated 08/22/23 @ 10:52 by Lamar Mahan) H/O heart artery stent ?Z95.5 - Presence of coronary angioplasty implant and graft (ICD-10) 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 General: Well-appearing and in no apparent distress. Skin: Warm, dry, no pallor noted. No rash. Head: Normocephalic, atraumatic. Neck: Supple, non-tender. Respiratory: No accessory muscle use or respiratory distress. Back: No midline thoracic or lumbar vertebral tenderness. No CVA tenderness Musculoskeletal: normal ROM, no calf or popliteal tenderness, no lower extremity edema/swelling Neurological: A&O x4. No cranial nerve dysfunction observed. No truncal ataxia. Moves all extremities. Sensation intact. Psychiatric: Cooperative and interactive. Normal mood and affect. Constitutional Vital Signs, click to edit/add: Last Vital Signs Temp 97.5 F L 09/26/24 09:03 Pulse 60 09/26/24 09:03 Resp 16 09/26/24 09:03 BP 167/92 H 09/26/24 09:03 Pulse Ox 96 09/26/24 09:03 O2 Del Method Room Air 09/26/24 09:03 Course Vital Signs Vital signs: Vital Signs Temperature 97.5 F L 09/26/24 09:03 Pulse Rate 60 09/26/24 09:03 Respiratory Rate 16 09/26/24 09:03 Blood Pressure 167/92 H 09/26/24 09:03 Pulse Oximetry 96 09/26/24 09:03 Oxygen Delivery Method Room Air 09/26/24 09:03 Temperature 97.5 F L 09/26/24 09:03 Pulse Rate 60 09/26/24 09:03 Respiratory Rate 16 09/26/24 09:03 Blood Pressure 167/92 H 09/26/24 09:03 Pulse Oximetry 96 09/26/24 09:03 Oxygen Delivery Method Room Air 09/26/24 09:03 MDM - Recheck/Abnormal Lab/Rx MDM Narrative Medical decision making narrative: The patient denied any complain he mentioned that his blood sugar was controlled today and is a lot better than what it was before His blood sugar in the ER was 170 When I presented to bedside explained to him that he was sent to us for evaluation of his blood pressure That was done yesterday but it seemed that everything getting corrected, I offered the patient to redo his blood workup today but he did not want that to be done as long is not needed He was discharged home to come back in case of any concern or symptoms The patient is to follow up with primary care physician in next 2-3 days or to return to the emergency department should any of the signs or symptoms worsen or new symptoms develop. The patient agrees with the following Diagnosis and Treatment plan and the patient will be discharged home. Lab Data Labs: Lab Results 09/26/24 Range/Units 09:14 POC Glucose 175 H (74-106) mg/dL Discharge Plan Discharge Chief Complaint: Recheck/Abnormal Lab/Rx Clinical Impression: Abnormal blood test Patient Disposition: Home, Self-Care Time of Disposition Decision: 09:18 Condition: Good Prescriptions / Home Meds: No Action clopidogrel 75 mg tablet 75 mg PO .qd Creon 24,000-76,000 -120,000 unit capsule,delayed release(DR/EC) 2 cap PO TIDWM Rx Instructions: AND 1 CAPSULE WITH SNACKS DIRECTED nitroglycerin 0.4 mg tablet, sublingual 0.4 mg sublingual Q5M PRN (Reason: chest pain) tamsulosin 0.4 mg capsule 0.4 mg PO QAM atorvastatin 80 mg tablet 80 mg PO DAILY valsartan 80 mg tablet 80 mg PO DAILY cephalexin 500 mg capsule 500 mg PO TID 7 Days Qty: 21 0RF Print Language: Gibraltarian Instructions: Diabetic Hyperglycemia (ED) Referrals: MARIE TEJEDA [Primary Care Provider] - 1 week
[2024-09-26 09:29] VITALS: O2SAT 98
== END 2024-09-26 09:32 | disposition home or self-care (01) ==
PROVIDERS: Emergency Provider Emergency Medicine; PCP Internal Medicine
DX: R79.89 Other specified abnormal findings of blood chemistry (principal); E11.9 Type 2 diabetes mellitus without complications; Z96.41 Presence of insulin pump (external) (internal); Z79.4 Long term (current) use of insulin; Z95.5 Presence of coronary angioplasty implant and graft; Z87.891 Personal history of nicotine dependence; Z90.81 Acquired absence of spleen; Z90.410 Acquired total absence of pancreas
CPT/HCPCS: 36415; 82948; 99282

== ENCOUNTER 2024-10-23 11:53 | Outpatient (OUT) | payer MEDICARE, OTHER, SELFPAY ==
[2024-10-23 13:06] LABS: Anion Gap 12.4; Calcium 8.2 mg/dL (8.5-10.1); Carbon Dioxide 27.9 mmol/L (21.0-32.0); Chloride 101 mmol/L (98-107); Estimated GFR (African America 58 (>=60 mL/min/1.73m^2); Estimated GFR (Non-African Ame 48 (>=60 mL/min/1.73m^2); Glucose 355 mg/dL (74-106); Potassium 4.3 mmol/L (3.5-5.1); Sodium 137 mmol/L (136-145)
== END 2024-10-23 11:54 | disposition home or self-care (01) ==
LOC: LAB 11:55
PROVIDERS: PCP Internal Medicine; Visit Provider Internal Medicine
DX: I25.5 Ischemic cardiomyopathy (principal); R06.00 Dyspnea, unspecified
CPT/HCPCS: 36415; 80048; 83880

== ENCOUNTER 2025-02-13 10:23 | Outpatient (OUT) | payer MEDICARE, OTHER, SELFPAY ==
[2025-02-13 11:24] LABS: Glucose 141 mg/dL (74-106)
== END 2025-02-13 10:24 | disposition home or self-care (01) ==
PROVIDERS: PCP Internal Medicine; Visit Provider Nurse Practitioner Family
DX: E10.59 Type 1 diabetes mellitus with other circulatory complications (principal)
CPT/HCPCS: 36415; 82947; 83036; 84681; 86341

== ENCOUNTER 2025-04-02 11:35 | Outpatient (OUT) | payer MEDICARE, OTHER, SELFPAY ==
--- OUTSIDE RECORDS SUMMARY | 2025-04-02 11:40 | XMS_ITS | Encounter Summary ---
Author Organization [facility] Address [address] [place] [address] Care Team Providers Care Mortgage Protection Specialist Name Role Phone Arnold Castro DO Primary Care Provider [phone] Arnold Castro DO Unavailable Patrick Beard MD Unavailable [phone] Andrey Grullon MD Unavailable [phone] Saúl Davis MD Unavailable Encounter Details Date Type Department Care Team (Late st Contact Info) Description 02/07/2024 Orders Only [facility] [address] [facility] [address] [place] [phone] A, Unknown Practice [address] [place], [place] [id number] Social History Tobacco Use Types Packs/Day Years Used Date Smoking Tobacco: Every Day Cigarettes Started: 1948 Smokeless Tobacco: Never Comments:Has a history of ce ssation from smokin02/09/2018 Alcohol Use Standard Drinks/Week Comments Yes 0 (1 standard drink = 0.6 oz pur e alcohol) AUDIT-C Answer Date Recorded Q1: How often do you have a drink containing alc ohol? 2-4 times a month 01/20/2023 Q2: How many drinks containi ng alcohol do you have on a typical day when you are drinking? 1 or 2 01/20/2023 Q3: How often do you have si x or more drinks on one occasion? Never 01/20/2023 PHQ-2 Answer Date Recorded Patient Health Questionnaire-2 Score 0 05/26/2023 Sex and Gender Information Value Date Recorded Sex Assigned at Not on file Legal Sex Male 6:39 PM EDT Gender Identity Not on file Sexual Orientation Not on file documented as of this encounter Plan of Treatment Not on file documented as of this encounter Procedures Procedure Name Priority Date/Time Associated Diagnosis Comments XR RIBS 2 VIEWS LEFT Routine 02/06/2024 11:00 AM EDT ESOPHAGOSCOPY Routine 02/05/2024 11:29 AM EDT documented in this encounter Results * XR ribs 2 views left (02/06/2024 11:00 AM EDT) Anatomical Region Laterality Modality Rib, Abdomen Left Radiographic Ijeoma ging us Unknown Practice A IMG XR PROCEDURES Final Resul t * Esophagoscopy (02/05/2024 11:29 AM EDT) Anatomical Region Laterality Modality Endoscopy us Unknown Practice A ENDOSCOPY PROCEDURE ORDERABLE S Final Result documented in this encounter Visit Diagnoses Not on filedocumented in this encounter Additional Health Concerns Assessment Noted Time PHQ-9 Depression Total Score: 15 023 7:10 AM EDT documented as of this encounter Care Teams Mortgage Protection Specialist Relationship Specialty Start Date End Date Arnold Castro DO [address] [place] [address] PCP - General Internal Medicine 01/08/23 Arnold Castro DO [address] [place] [address] PCP - ACO Reach 09/10/23 Patrick Beard MD [address] [facility] [address] [place], [place] [id number] Referring Physician Gastroenterology 04/17/24 Andrey Grullon MD [address] [place] [address] Referring Physician Neurology 04/17/24 Saúl Davis MD [address] [facility] [address] [place] [address] Referring Physician Cardiology 04/17/24 documented as of this encounter
--- OUTSIDE RECORDS SUMMARY | 2025-04-02 11:40 | XMS_ITS | Encounter Summary ---
Author Organization [facility] Address [address] [facility] [place] [address] Care Team Providers Care Final Inspector Balance Wheel Name Role Phone Arnold Castro DO Primary Care Provider Arnold Castro DO Unavailable Patrick Beard MD Unavailable Andrey Grullon MD Unavailable Saúl Davis MD Unavailable [phone] Encounter Details Date Type Department Care Team (Late st Contact Info) Description 03/26/2025 Patient Outreach [facility] [address] [place] [id number] Alejandrina Santamaria LPN [address] [facility] [address] [place] [address] Social History Tobacco Use Types Packs/Day Years Used Date Smoking Tobacco: Every Day Cigarettes 0.3 30 Started: 07/12/1947 Smokeless Tobacco: Never Comments:Has a history of ce ssation from smokin02/09/2018 Alcohol Use Standard Drinks/Week Comments Yes 5 (1 standard drink = 0.6 oz pur [...] Date Recorded Patient Health Questionnaire-2 Score 0 04/17/2024 Sex and Gender Information Value Date Recorded Sex Assigned at Not on file Legal Sex Male 6:39 PM EDT Gender Identity Not on file Sexual Orientation Not on file documented as of this encounter Plan of Treatment Not on file documented as of this encounter Visit Diagnoses Diagnosis 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 insufficiency (HCC) Other specified disease of pancreas documented in this encounter Additional Health Concerns Assessment Noted Time PHQ-9 Depression Total Score: 15 023 7:10 AM EDT documented as of this encounter Care Teams Final Inspector Balance Wheel Relationship Specialty Start Date End Date Arnold Castro DO [address] [place] [address] PCP - General Internal Medicine 01/08/23 Arnold Castro DO [address] [facility] [address] [place] [address] PCP - ACO Reach 09/10/23 Patrick Beard MD [address] [facility] [address] [place] [address] Referring Physician Gastroenterology 04/17/24 Andrey Grullon MD [address] [facility] [address] [place] [address] Referring Physician Neurology 04/17/24 Saúl Davis MD [address] [facility] [address] [place] [address] Referring Physician Cardiology 04/17/24 documented as of this encounter
--- OUTSIDE RECORDS SUMMARY | 2025-04-02 11:40 | XMS_ITS | Encounter Summary ---
Author Organization [facility] Address [address] [place] [address] Phone Care Team Providers Care Guest Relations Representative Name Role Phone Arnold Castro DO Primary Care Provider Encounter Details Date Type Department Care Team (Late st Contact Info) Description 05/03/2023 Scanned Document [facility] [address] [place] [phone] Scanning, Generic Provider Social History Tobacco Use Types Packs/Day Years Used Date Smoking Tobacco: Never Assessed Sex and Gender Information Value Date Recorded Sex Assigned at Not on file Legal Sex Male 11:32 AM EDT Gender Identity Not on file Sexual Orientation Not on file documented as of this encounter Plan of Treatment Not on file documented as of this encounter Visit Diagnoses Not on filedocumented in this encounter Care Teams Guest Relations Representative Relationship Specialty Start Date End Date Arnold Castro DO [address] [place] [address] PCP - General Internal Medicine 05/18/23 documented as of this encounter
--- OUTSIDE RECORDS SUMMARY | 2025-04-02 11:40 | XMS_ITS | Clinical Summary ---
Author Organization [facility] Address [address] [place] [address] Care Team Providers Care Collector Of Port Name Role Phone Arnold Castro DO Primary Care Provider Arnold Castro DO Unavailable [phone] Patrick Beard MD Unavailable [phone] Andrey Grullon MD Unavailable Saúl Davis MD Unavailable [phone] Allergies No known active allergies Medications Lactobacillus (Probiotic Acidophilus) capsule 1 capsule 1 (one) time each day at the same time. Active Multiple Vitamins-Minerals (Centrum Silver 50+Men) tablet Take 1 tablet by mouth 1 (one) time each day. Active atorvastatin (Lipitor) 80 MG tablet Take 80 mg by mouth in the morning. Active aspirin 81 MG EC tablet Take 81 mg by mouth in the morning. Active Acetaminophen Extra Strength 500 MG tablet Daily. Active nitroglycerin (Nitrostat) 0.[address] 0.4 mg under the tongue. Active glucose blood (Contour Next Test) test stripIndications:T ype 1 diabetes mellitus with hyperosmolarity without nonketotic hyperglycemic hyperosmolar coma (HCC) 1 each by Other route in the morning and 1 each at noon and 1 each in the evening. Take before meals. Use as instructed. 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 (HCC) Basal: 12A 0.3, 7A 0.4, 9P 0.5, 10 units breakfast, 8 units with lunch, 7 dinner, ISF: 75 1 each Active albuterol HFA (ProAir HFA) 90 mcg/act inhalerIndications :Bronchitis Inhale 2 puffs every 4 (four) hours if needed for wheezing or shortness of breath 8.5 g 025 2025 Active PARoxetine (Paxil) 40 MG tabletIndications: Generalized anxiety disorder TAKE 1 TABLET BY MOUTH EVERY DAY IN THE MORNING 90 tablet 3 025 Active Gvoke HypoPen 1-Pack 1 MG/0.2ML injection Inject 1 mg under the skin 1 (one) time if needed Active Insulin Aspart 100 UNIT/ML solution ADMINISTER PER PUMP (MAX DAILY 75 UNITS) Active insulin glargine (Lantus SoloStar) 100 UNIT/ML pen Inject 12 Units under the skin at bedtime Active BD Pen Needle Marichuy 2nd Gen 32G X 4 MM misc Use with Insulin Once Daily in case of pump failure 025 Active loratadine (Claritin) 10 MG tablet Take 1 tablet by mouth Daily Active cholecalciferol (Vitamin D-3) 50 MCG (2000 UT) tablet Take 2,000 Units by mouth Daily Active tamsulosin (Flomax) 0.4 MG 24 hr capsule Take 1 capsule by mouth at bedtime Active metoprolol succinate XL (Toprol-XL) 50 MG 24 hr tablet Take 0.5 tablets by mouth in the morning and 0.5 tablets before bedtime. Do not crush or chew. Active omeprazole (PriLOSEC) [address] capsule Take 20 mg by mouth in the morning. Take before meals. Do not crush or chew. Active spironolactone (Aldactone) 25 MG tabletIndications: Chronic systolic CHF (congestive heart failure), NYHA class 2 ([facility]) Take 1 tablet (25 mg) by mouth Daily 90 tablet 3 025 Active pancrelipase, Ldb-Nkmo-Mpli, (Creon) 43733-39496 units capsuleIndications :Pancreatic insufficiency (HCC) TAKE 2 CAPSULES BY MOUTH DAILY WITH MEALS AND 1 WITH 2 SNACKS DAILY DIRECTED 250 capsule 025 Active pancrelipase, Lfm-Bhez-Uuwz, (Creon) 11065-66974 units capsuleIndications :Pancreatic insufficiency (HCC) TAKE 2 CAPSULES BY MOUTH DAILY WITH MEALS AND 1 CAPSULE BY MOUTH WITH SNACKS DIRECTED 240 capsule 3 025 2024 Discontinued Active Problems Problem Noted Date Diagnosed Date History of bleeding peptic ulcer 05/31/2024 Overview (05/31/2024): Hx HPylori Chronic systolic CHF (conges tive heart failure), NYHA class 2 05/31/2024 Overview (05/31/2024): Left Ventricle: Left ventricle appears normal in size. Systolic function is moderately to severely decreased with an ejection fraction of 30-35%. There is grade II (moderate) diastolic dysfunction and elevated left atrial pressure. Mitral Valve: There is moderate regurgitation. Nonrheumatic mitral valve regurgitation 05/31/20 24 Overview (05/31/2024): Mitral Valve: There is moderate regurgitation. There is no evidence of mitral valve stenosis. . Moderate pulmonary arterial systolic hypertensio n 05/31/2024 Overview (05/31/2024): Left Ventricle: Left ventricle appears normal in size. Systolic function is moderately to severely decreased with an ejection fraction of 30-35%. There is grade II (moderate) diastolic dysfunction and elevated left atrial pressure. Right Ventricle: Right ventricular size is mildly dilated. Systolic function is normal. Mitral Valve: There is moderate regurgitation. Tricuspid Valve: There is mild to moderate regurgitation. There is no evidence of tricuspid valve stenosis. The right ventricular systolic pressure is moderately elevated. RVSP calculated at 49 mmHg. There is moderate pulmonary hypertension. 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 Encouraged to check blood glucose throughout the day with some fasting and some PP readings. They are to bring their glucose meter/cgm in to all appointments. All of the patients questions, treatment options, and current care plan and goals were discussed. A copy of this along with pertinent instructions were given to the patient at the end of the appointment. The patient voices understanding of all of this and is to call in between appointments if they have any problems or questions. Manolo Roche is doing okay. , The patient is wearing their cgm on a daily basis and making decisions in regards to adjusting insulin daily as well for at least the last 60 days , Discussed dietary changes at length. Encouraged to limit simple carbs and focus more on healthy protein/fat with all meals and snacks. They should also avoid any sugary drinks. , Instructions given today include: Hypoglycemia management, Pump instructions, and Dietary education. He is to work on rotating his pump sites and try in the upper buttock region. I feel that he is having some failed sites/kinked sites due to scar tissue and very little fat. He is to monitor for this closely and gave him the instructions on what to do if they don't think pump is working. Made all corrections to his pump settings. He is to bring in his new pump for me to set up when it is charged. He is not to make any changes in his pump settings. Will work on getting him the dexcom G7. 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 Overview (05/02/2023): During pancreatic surgery Acquired total absence of pancreas 12/12/2019 Pancreatic insufficiency 04/03/2019 Overview (05/31/2024): EPI Coronary arteriosclerosis 01/31/2019 Resolved Problems Problem Noted Date Diagnosed Date Resolved Date Abdominal wall abscess 07/13/202408/30 Left carpal tunnel syndrome 02/28/2024 04/17/2024 Duodenal ulcer 09/09/2023 05/31/2024 Closed nondisplaced fracture of fourth cervical vertebra with routine healing 09/09/2023 1 07/31/2023 H pylori ulcer 09/07/2023 05/31/2024 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 08/30/2023 07/09/2024 Acute right hip pain 05/26/2023 024 Recent fracture of hip 05/26/202304/17 Overview (05/26/2023): 04/28 intertroch right hip - ORIF Right thigh pain 05/19/2023 09/09/2023 Hip fracture due to osteoporosis, sequela 05/19/2023 05/31/2024 Need for immunization against influenza 05/19/2023 04/17/2024 Sepsis due to Escherichia co li without acute organ dysfunction 05/02/2023 04/17/2024 Type 1 diabetes mellitus wit h hyperosmolarity without nonketotic hyperglycemic hyperosmolar coma 05/02/2023 04/26/2024 Dupuytren contracture 02/05/20232022 Ground glass opacity present on imaging of lung 02/05/2023 02/05/2023 Hematuria 02/05/2023 02/05/2023 Perforated gastric ulcer 02/05/2023 Medicare annual wellness visit, subsequent 01/20/2023 08/30/2023 Assessment & Plan (05/26/2023 2:22 PM EST): Patient here for annual Medicare Wellness visit. 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 Demographics were updated. Self-assessment was completed. Past medical, family, and social history were updated. The medication list, including supplements being taken, was updated. A list of other current medical providers was established/updated. Time was spent discussing health maintenance issues, ordering proper testing, and a schedule was provided regarding recommended screening. We discussed safety issues and fall risk. Depression screening was completed and addressed. Fall screening was completed and addressed. Cognitive function was assessed by direct observation and assessment of ability to perform ADL''s and IADL''s was done. We discussed about pt''s current BMI as well as the goal. Educated pt on healthy life style such as diet and exercise. Generalized anxiety disorder 01/08/2023 05/31/2024 Diabetes mellitus due to underlying condition 01/03/20 22 01/20/2023 IPMN (intraductal papillary mucinous neoplasm) 06/23/2018 02/05/2023 Overview (02/05/2023): Added automatically from request for surgery [id number] Smoker 2018 04/17/2024 Overview (02/01/2023): Dimitris and milds occasional Encounters Date Type Department Care Team Description 03/26/2025 Patient Outreach [facility] [address] [place] [address] Alejandrina Santamaria LPN 03/05/2025 Refill [facility] [address] [place] [phone] Arnold Castro DO Pancreatic insufficiency (HCC) 02/13/2025 Clinisync Result Encounter [facility] External Department Unsolicited Provider, Generic External Data 01/17/2025 Refill [facility] [address] [place] [phone] Arnold Castro DO Chronic systolic CHF (congestive heart failure), NYHA class 2 (HCC) 01/16/2025 11:30 AM EDT Ancillary Procedure [facility] [address] [place] [phone] Pleurisy 01/16/2025 Travel 01/08/2025 Orders Only [facility] External Department Unsolicited Arnold Castro DO 01/03/2025 Results Follow-Up [facility] [address] [place] [phone] Arnold Castro DO XR chest 2 views, CT angiogram chest 01/02/2025 12:30 PM EDT Ancillary Procedure [facility] [address] [place] [phone] Pleurisy 01/02/2025 11:30 AM EDT Office Visit [facility] [address] [place] [phone] Arnold Castro DO Pancreatic insufficiency (HCC) (Primary Dx); Pleurisy; Abnormal CT of the chest 01/02/2025 Travel from Last 3 Months Immunizations Immunization Administration Dates Next Due Hib (PRP-OMP) 08/18/2018 Influenza, High Dose Seasona l, Preservative Free 04/29/2022,04/29/2021,03/03/2017 Influenza, Seasonal, Quadriv alent, Adjuvanted 05/19/2023 Influenza, trivalent, adjuvanted 024,04/24/2020,04/03/2019,03/23 Meningococcal B, Omv 09/15/2019,08/18/2018 Meningococcal MCV4P 09/15/2019 Moderna Bivalent Booster Vaccination 05/26/2022 Moderna SARS-CoV-2 Vaccination 05/18/2023,2020,07/25/2020 Pneumococcal Conjugate PCV 13 12/26/2019, 019 Pneumococcal Polysaccharide PPSV23 09/15/2019, RSV, recombinant, protein melchor bunit RSVpreF, adjuvant reconstitu, 120mcg/0.5mL, PF (Arexvy) 05/18/2023 Td (adult), 5 Lf tetanus tox oid, preservative free, adsorbed 03/18/2018 Tdap 03/18/2015 Zoster, Recombinant 05/18/2023,05/02/2021 Zoster, live 05/05/2021 Family History Medical History Relation Name Comments Cancer Brother at age 75 from possible unknown cancer No Known Problems Father Passed bre y at age 82 Stroke Mother Ana Cancer Sister Carol Leukemia Sister Carol at age 33 from leukemia synovial cell cancer Son 1 Cancer Son 2 Saúl Relation Name Status Comments Brother Daughter 1 daughter Father Mother Ana Sister Carol Son 1 Alive 1 son Son 2 Saúl Social History Tobacco Use Types Packs/Day Years Used Date Smoking Tobacco: Every Day Cigarettes 0.3 30 Started: 07/12/1947 Smokeless Tobacco: Never Tobacco Cessation:Ready to Q uit: Not Asked; Counseling Given: Not Answered Comments:Has a history of cessation from smokin02/09/2018 Alcohol Use Standard Drinks/Week Comments [...] on file Sexual Orientation Not on file Last Filed Vital Signs Vital Sign Reading Time Taken Comments Blood Pressure 122/66 01/02/2025 11:38 AM EDT Pulse 64 01/02/2025 11:38 AM EDT Temperature 36.4 C (97.6 F) 12/13/2023 10:26 AM EDT Respiratory Rate 18 10/27/2023 1:15 PM EDT Oxygen Saturation 96% 01/02/2025 11:38 AM EDT Inhaled Oxygen Concentration - - Weight 62.6 kg (138 lb) 01/02/2025 11:38 AM EDT Height 177.8 cm (5' 10 ) 01/02/2025 11:38 AM EDT Body Mass Index 19.8 01/02/2025 11:38 AM EDT Plan of Treatment Health Maintenance Due Date Last Done Comments Diabetes: Retinopathy Screening 11/23/2024 11/23/2022, 11/19/2021, 11/16/2019 Diabetes: Hemoglobin A1C 01/25/2025 025, 07/06/2024, 04/17/2024, Additional history exists Influenza Vaccine (#1) 2025 , 05/19/2023, 04/29/2022, Additional history exists Medicare Annual Wellness (AWV) 04/17/2025 04/17/2024 , 04/29/2022 Diabetes: Urine Protein Screening 09/25/2025 09/25/2024, 09/25/2024, 06/05/2022, Additional history exists Pneumococcal Vaccine: 65+ Years Completed 12/26/2019, 09/15/2019, 08/18/2018, Additional history exists Procedures Procedure Name Priority Date/Time Associated Diagnosis Comments [facility]H GAD65 AB Routine 02/13/2025 10:53 AM EDT ALL C-PEPTIDE Routine 02/13/2025 10:53 AM EDT MLR HEMOGLOBIN A1C Routine 02/13/2025 10 :53 AM EDT TB[facility] GLUCOSE BLOOD Routine 02/13/2025 10: [address] ANGIOGRAM CHEST Routine 01/16/2025 11 :50 AM EDT Pleurisy CREATININE Routine 01/08/2025 10:56 AM EDT XR CHEST 2 VIEWS STAT 01/02/2025 12:2 9 PM EDT Pleurisy POCT GLYCOSYLATED HEMOGLOBIN (HGB A1C) Routine 04/17/2024 10:58 AM EDT 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 (HCC) COLOR FUNDUS PHOTOGRAPHY - OU - BOTH EYES Routine 11/23/2022 12:00 PM EDT MICROALBUMIN CREATININE RATIO, U Routine 05/05/2021 from Last 3 Months or Most Recently Relevant to Health Maintenance Results * UH GAD65 AB (02/13/2025 10:53 AM EDT) BIN-65 AUTOANTIBODY <5.0 0.0 - 5.0 U/mL [facility] Comment: Performed at: [address] [id number] Water Superintendent: Yany Jones MD, Phone: [phone] 02/13/2025 10:5 3 AM EDT 02/13/2025 10:57 AM EDT Narrative [facility] - 02/17/2025 4:09 PM EDT Generic External Data Provider [facility] F inal Result Performing Organization Address City/[facility]/ZIP Co de Phone Number [facility] TB * (ABNORMAL) [facility] GLUCOSE BLOOD (02/13/2025 10:53 AM EDT) GLUCOSE 141(H) 74 - 106 mg/dL TB 02/13/2025 10:5 3 AM EDT 02/13/2025 10:57 AM EDT Narrative [facility] - 02/13/2025 11:26 AM EDT Generic External Data Provider [facility] F inal Result Performing Organization Address [facility] Co de Phone Number [facility] TB * (ABNORMAL) MLR HEMOGLOBIN A1C (02/13/2025 10:53 AM EDT) GLYCOHEMOGLOBIN A1C 11.0(H) 4.5 - 6.2 % TB Comment: ADA RECOMMENDED LIMIT 4.0 - 6.0 ADA THERAPEUTIC TARGET < 7.0 ACTION SUGGESTED > 7.0 ESTIMATED AVERAGE GLUCOSE 269 mg/dL [facility]H 02/13/2025 10:5 3 AM EDT 02/13/2025 10:57 AM EDT Narrative [facility] - 02/13/2025 11:27 AM EDT Generic External Data Provider [facility] F inal Result Performing Organization Address City/[facility] Co de Phone Number [facility] TB * (ABNORMAL) ALL C-PEPTIDE (02/13/2025 10:53 AM EDT) C-PEPTIDE, SERUM <0.1(A) 1.1 - 4.4 ng/mL [facility] Comment: C-Peptide reference interval is for fasting patients. Performed at: [address] [id number] Water Superintendent: Arturo Boles PhD, Phone: [phone] 02/13/2025 10:5 3 AM EDT 02/13/2025 10:57 AM EDT Narrative [facility] - 02/14/2025 8:09 AM EDT us Generic External Data Provider [facility] F inal Result [facility] * CT angiogram chest (01/16/2025 11:50 AM EDT) Anatomical Region Laterality Modality Body, Chest Computed Tomogra phy 01/16/2025 1:41 PM EDT Impressions 01/16/2025 1:[address] evidence of acute pulmonary embolism or other acute process in the thorax. Airway findings as discussed including retained secretions within the central airways. Partially imaged bilateral hydronephrosis. ELECTRONICALLY SIGNED BY: Howard Mae MD Narrative 01/16/2025 1:46 PM EDT CLINICAL HISTORY: Chest pain. Technique: Spiral CTA acquisition of the chest from the thoracic inlet to the upper abdomen following IV contrast. Including MIP reconstructions in coronal and sagittal plane. Other sagittal and coronal reconstructions. Contrast: IV administration of 100 ml I[address] scans at this facility use dose modulation, iterative reconstruction, and/or weight based dosing when appropriate to reduce radiation dose to as low as reasonably achievable. Comparison: No prior CT available. Chest x-ray 01/02/2025. RESULT: Evaluation for thromboembolic disease: No evidence for thromboembolic disease in the main, lobar, segmental, and visualized subsegmental pulmonary arteries. No evidence for right heart strain. Lung parenchyma and pleura: Some retained secretions within the trachea at the level of the ascencion and also within the mainstem bronchi. Bronchiectasis. Dependent atelectasis. No consolidative opacity. Areas of probable atelectasis/scarring. No pleural effusion. No pneumothorax. No suspicious pulmonary nodules, within limits of motion. No suspicious pulm Thoracic inlet, heart, and mediastinum: Visualized thyroid unremarkable. No axillary, mediastinal, or hilar lymphadenopathy. Moderate thoracic aorta atherosclerotic calcifications without aneurysm. Cardiomegaly. Coronary calcifications and/or stents. Left-sided ICD. No pericardial effusion or thickening. Esophagus nondilated. Bones: No acute osseous findings. No destructive osseous lesions. Degenerative changes. Soft tissues: Unremarkable. Upper abdomen: Not well assessed on this study. Surgical clips. Apparent bilateral hydronephrosis, only partially imaged on this study. Cystic lesion right upper quadrant appearing to be exophytic cyst from the right kidney. Procedure Note Howard Mae MD - 01/16/2025 CLINICAL HISTORY: Chest pain. Technique: Spiral CTA acquisition of the chest from the thoracic inlet tothe upper abdomen following IV contrast. Including MIP reconstructions incoronal and sagittal plane. Other sagittal and coronal reconstructions. Contrast: IV administration of 100 ml Isovue [address] scans at this facility use dose modulation, iterativereconstruction, and/or weight based dosing when appropriate to reduceradiation dose to as low as reasonably achievable. Comparison: No prior CT available. Chest x-ray 01/02/2025. RESULT: Evaluation for thromboembolic disease: No evidence for thromboembolicdisease in the main, lobar, segmental, and visualized subsegmentalpulmonary arteries. No evidence for right heart strain. Lung parenchyma and pleura: Some retained secretions within the trachea atthe level of the ascencion and also within the mainstem bronchi.Bronchiectasis. Dependent atelectasis. No consolidative opacity. Areas ofprobable atelectasis/scarring. No pleural effusion. No pneumothorax. Nosuspicious pulmonary nodules, within limits of motion. No suspiciouspulm Thoracic inlet, heart, and mediastinum: Visualized thyroid unremarkable.No axillary, mediastinal, or hilar lymphadenopathy. Moderate thoracicaorta atherosclerotic calcifications without aneurysm. Cardiomegaly.Coronary calcifications and/or stents. Left-sided ICD. No pericardialeffusion or thickening. Esophagus nondilated. Bones: No acute osseous findings. No destructive osseous lesions.Degenerative changes. Soft tissues: Unremarkable. Upper abdomen: Not well assessed on this study. Surgical clips. Apparentbilateral hydronephrosis, only partially imaged on this study. Cysticlesion right upper quadrant appearing to be exophytic cyst from the rightkidney. IMPRESSION: No CT evidence of acute pulmonary embolism or other acute process in thethorax. Airway findings as discussed including retained secretions within thecentral airways. Partially imaged bilateral hydronephrosis. ELECTRONICALLY SIGNED BY: Howard Mae MD us Arnold Castro DO IMG CT PROCEDURES Final Resu lt * (ABNORMAL) Creatinine (01/08/2025 10:56 AM EDT) Creat 1.21 0.76 - 1.27 mg/dL [facility] EGFR 58(L) >59 mL/min/1.73 [facility] 01/08/2025 10:5 6 AM EDT 01/08/2025 Narrative [facility] - 01/08/2025 3:07 PM EDT Performed at: - [place] [address], [address], [place], [place] [id number] Water Superintendent: Hilario Chew MD, Phone: [phone] Arnold Castro DO LAB BLOOD ORDERABLES Final R esult [facility] * XR chest 2 views (01/02/2025 12:29 PM EDT) Anatomical Region Laterality Modality Chest Radiographic Ijeoma ging 01/02/2025 1:14 PM EDT Narrative 01/02/2025 1:14 PM EDT TITLE OF EXAM: XR CHEST 2 VIEWS REASON FOR EXAM: Left pleuritic pain TECHNIQUE: Two radiographs of the chest. COMPARISON: None FINDINGS: Lead cardiac conduction device with intact appearing leads, their tips project at the right atrial appendage and right ventricular apex. Hyperexpansion of the lungs with flattening of the hemidiaphragms. Mild diffuse small airway thickening/prominence and reticular opacities. No consolidation. No significant effusion or pneumothorax. The cardiomediastinal silhouette is normal. No acute osseous or upper abdominal abnormality. IMPRESSION: 1. No acute cardiopulmonary abnormality. 2. Radiographically mild chronic appearing small airways disease and fibrotic changes. 3. Findings supporting the provided diagnosis of COPD. DICTATED ON: 01/02/2025 11:03 AM This report has been electronically signed in approved by the interpreting radiologist. Procedure Note Yuval Gill MD - 01/02/2025 TITLE OF EXAM: XR CHEST 2 VIEWS REASON FOR EXAM: Left pleuritic pain TECHNIQUE: Two radiographs of the chest. COMPARISON: None FINDINGS: Lead cardiac conduction device with intact appearing leads, their tipsproject at the right atrial appendage and right ventricular apex. Hyperexpansion of the lungs with flattening of the hemidiaphragms. Milddiffuse small airway thickening/prominence and reticular opacities. Noconsolidation. No significant effusion or pneumothorax. Thecardiomediastinal silhouette is normal. No acute osseous or upperabdominal abnormality. IMPRESSION: 1. No acute cardiopulmonary abnormality. 2. Radiographically mild chronic appearing small airways disease andfibrotic changes. 3. Findings supporting the provided diagnosis of COPD. DICTATED ON: 01/02/2025 11:03 AM This report has been electronically signed in approved by the interpretingradiologist. Arnold Castro DO IMG XR PROCEDURES Final Resu lt * POCT glycosylated hemoglobin (Hb A1C) docked device (04/17/2024 10:58 AM EDT) Pathologist [facility] Hemoglobin A1C 9.8 Blood Venous blood specimen / Unknown 04/17/2024 10:58 AM EDT Arnold Castro DO POINT OF CARE TEST ENTER/TERE T ORDERABLES Final Result * Color Fundus Photography - OU - Both Eyes (11/23/2022 12:00 PM EDT) Anatomical Region Laterality Modality Head Fundus Photograp hy 11/23/2022 12:0 0 PM EDT Narrative 11/23/2022 12:00 PM EDT PERFORMED AT [facility] LOCATION:[id number] community health Procedure Note CONVERSION, GENERIC - 11/28/2022 PERFORMED AT [facility] LOCATION:[id number] community health us Arnold Castro DO OPHTH PHOTOGRAPHY Final Resu lt * (ABNORMAL) MICROALBUMIN CREATININE RATIO, U (05/05/2021) MALB 4.4 <=30.0 [facility] URINE CREAT 107.82 20.00 - 300.00 [facility] MALB CR RATIO 40.8(HH) 0.0 - 29.9 [facility] MALB CR RATIO RANGE SEE BELOW [facility] Comment:NO MICROALBUMINURIA 0-29 MG/G CLINICAL MICROALBUMINURIA 30-300 MG/G MACROALBUMINURIA >300 MG/G PERFORMING LAB: see note [facility] Comment:1 - [facility] [facility] [address] [address] ,Ext. [phone] 05/05/2021 Arnold Castro DO [facility] LABS Final Result [facility] from Last 3 Months or Most Recently Relevant to Health Maintenance Insurance MEDICARE [facility] Advance Directives * DNR-CCA (Latest Code Status on File) Date Activated Date Inactivated Comments 04/26/2024 7:43 AM Care Teams Collector Of Port Relationship Specialty Start Date End Date [place] Castro DO [address] [place] [address] PCP - General Internal Medicine 01/08/23 Arnold Castro DO [address] [place] [address] PCP - ACO Reach 09/10/23 Patrick Beard MD 1 [facility] [address] [place] [address] Referring Physician Gastroenterology 04/17/24 Andrey Grullon MD [address] [place] [address] Referring Physician Neurology 04/17/24 Saúl Davis MD 703 [facility] 2, [address] [place] [address] Referring Physician Cardiology 04/17/24
--- OUTSIDE RECORDS SUMMARY | 2025-04-02 11:40 | XMS_ITS | Encounter Summary ---
Author Organization [facility] Address [address] [place] [address] Phone Care Team Providers Care Co Founder And Ceo Name Role Phone Arnold Castro DO Primary Care Provider Encounter Details Date Type Department Care Team (Late st Contact Info) Description 04/30/2023 Scanned Document [facility] [address] [place] [id number] Scanning, Generic Provider Social History Tobacco Use [...] on filedocumented in this encounter Care Teams Co Founder And Ceo Relationship Specialty Start Date End Date [place] Castro DO [address] [place] [address] PCP - General Internal Medicine 05/18/23 documented as of this encounter
--- OUTSIDE RECORDS SUMMARY | 2025-04-02 11:40 | XMS_ITS | Encounter Summary ---
Author Organization [facility] Address [address] [place] [address] Care Team Providers Care Hostess Name Role Phone Marie Castro DO Primary Care Provider Marie Castro DO Unavailable [phone] Patrick Beard MD Unavailable [phone] Andrey Grullon MD Unavailable [phone] Saúl Davis MD Unavailable [phone] Encounter Details Date Type Department Care Team (Late st Contact Info) Description 12/28/2023 Clinisync Result Encounter [facility] External Department Unsolicited Provider, Generic External Data Social History Tobacco Use Types Packs/Day Years [...] Procedure Name Priority Date/Time Associated Diagnosis Comments MR CERVICAL SPINE WO CONTRAST 12/28/2023 9:34 AM EDT documented in this encounter Results * MR cervical spine wo contrast (12/28/2023 9:34 AM EDT) Anatomical Region Laterality Modality Spine, C-spine Magnetic Resonan ce 12/28/2023 9:34 AM EDT Narrative 12/28/2023 9:36 [place] [address] Magnetic Resonance Report Signed Patient: ASHWINI ROCHE MR#: [id number] : 1935 Acct:[id number] Age/Sex: 88 / M ADM Date: 12/27/23 Loc: MRI Attending Dr: Non-Staff Physician MBrandon Ordering Physician: Jones MortonStaff Mikel Date of Service: 12/27/23 Procedure(s): MR cervical spine wo con Accession Number(s): [id number] cc: PhysicianJonesStaff Mikel; MARIE CASTR[address] [id number] Patient Name: ASHWINI ROCHE MRN: [id number] date: 1935 Sex: M Assigned Patient Location: MRI Current Patient Location: Accession/Order Number: [id number] Exam Date: 12/27/2023 09:55 Report Date: 12/28/2023 09:34 At the request of: NON-STAFF PHYSICIAN Procedure: MR cervical spine wo con EXAMINATION: MR cervical spine wo con HISTORY: Left Hand Weakness R29.898, Left Arm Paresthesia R20.2 COMPARISON: CT cervical spine 08/31/2023 TECHNIQUE: A variety of imaging planes and parameters were utilized for visualization of suspected pathology without and/or with intravenous Dotarem contrast based on examination type. FINDINGS: CRANIOCERVICAL AREA: Normal foramen magnum with no Chiari malformation. PARASPINAL AREA: Normal with no visible mass. BONES: Stable alignment of remote fractures of posterior tip of spinous process of C4 and C5. No edema. CORD: Normal caliber, contour, and signal intensity. CERVICAL DISC LEVELS: C2-C3: Early degenerative disc disease is present without focal protrusion or neural impingement. C3-C4: Mild central canal and marked right, moderate left foramen narrowing. Mild diffuse disc bulging without significant disc height reduction. Moderate degenerative right facet arthropathy. C4-C5: Mild central canal narrowing and mild posterior disc protrusion contacting and slightly indenting the anterior margin of the cord. Moderate foramen narrowing bilaterally. Mild diffuse disc bulging without disc at reduction. Mild degenerative facet arthropathy bilaterally. C5-C6: Moderate central canal and moderate-marked bilateral foramen narrowing. Mild diffuse disc bulging and bilateral uncovertebral joint spurring. Marked disc height reduction. Moderate degenerative facet arthropathy, right greater than left. C6-C7: Moderate central canal and right foramen narrowing. Marked left foramen narrowing. Mild diffuse disc bulging and marked disc height reduction. Uncovertebral joint spurring. Mild to moderate degenerative facet arthropathy. C7-T1:. No central canal narrowing. Moderate foramen narrowing bilaterally. Mild diffuse disc bulging without disc at reduction. Mild degenerative facet arthropathy. MR/MR cervical spine wo con IMPRESSION: 1. Multilevel degenerative disc disease, greatest at C5-6 and C6-C7. 2. Moderate to marked foramen narrowing C3-4 through C6-7. 3. Moderate central canal narrowing C5-6, C6-7. Electronically authenticated by: BUTCH SALDAÑA Date: 12/28/2023 09:34 Dictated By: Butch Saldaña M.D. Signed By: 12/28/23 0936 DD/ TD/TT: Vegetable Canner: Procedure Note Radiology, Radiologist, MD - 12/28/2023 [address] [id number] Magnetic Resonance Report Signed Patient: ASHWINI ROCHE JMR#: [id number] : 7Acct:[id number] Age/Sex: 88 / MADM Date: 12/27/23 Loc: MRI Attending Dr: Non-Staff Physician MBrandon Ordering Physician: Physician,Non-Staff M.D. Date of Service: 12/27/23 Procedure(s): MR cervical spine wo con Accession Number(s): [id number] cc: Maci Morton M.D.; MARIE CASTRO [address] [address] Patient Name: ASHWINI ROCHE MRN: [id number] date: 1935 Sex: M Assigned Patient Location: MRI Current Patient Location: Accession/Order Number: [id number] Exam Date: 12/27/2023 09:55 Report Date: 12/28/2023 09:34 At the request of: NON-STAFF PHYSICIAN Procedure: MR cervical spine wo con EXAMINATION: MR cervical spine wo con HISTORY: Left Hand Weakness R29.898, Left Arm Paresthesia R20.2 COMPARISON: CT cervical spine 08/31/2023 TECHNIQUE: A variety of imaging planes and parameters were utilized for visualization of suspected pathology without and/or with intravenousDotarem contrast based on examination type. FINDINGS: CRANIOCERVICAL AREA: Normal foramen magnum with no Chiari malformation. PARASPINAL AREA: Normal with no visible mass. BONES: Stable alignment of remote fractures of posterior tip of spinous process of C4 and C5. No edema. CORD: Normal caliber, contour, and signal intensity. CERVICAL DISC LEVELS: C2-C3: Early degenerative disc disease is present without focal protrusionor neural impingement. C3-C4: Mild central canal and marked right, moderate left foramennarrowing. Mild diffuse disc bulging without significant disc height reduction.Moderate degenerative right facet arthropathy. C4-C5: Mild central canal narrowing and mild posterior disc protrusion contacting and slightly indenting the anterior margin of the cord.Moderate foramen narrowing bilaterally. Mild diffuse disc bulging without disc at reduction. Mild degenerative facet arthropathy bilaterally. C5-C6: Moderate central canal and moderate-marked bilateral foramennarrowing. Mild diffuse disc bulging and bilateral uncovertebral joint spurring.Marked disc height reduction. Moderate degenerative facet arthropathy, rightgreater than left. C6-C7: Moderate central canal and right foramen narrowing. Marked leftforamen narrowing. Mild diffuse disc bulging and marked disc height reduction. Uncovertebral joint spurring. Mild to moderate degenerative facetarthropathy. C7-T1:. No central canal narrowing. Moderate foramen narrowingbilaterally. Mild diffuse disc bulging without disc at reduction. Mild degenerativefacet arthropathy. MR/MR cervical spine wo con IMPRESSION: 1. Multilevel degenerative disc disease, greatest at C5-6 and C6-C7. 2. Moderate to marked foramen narrowing C3-4 through C6-7. 3. Moderate central canal narrowing C5-6, C6-7. Electronically authenticated by: BUTCH SALDAÑA Date: 12/28/2023 09:34 Dictated By: Butch Saldaña M.D. Signed By:12/28/2336 DD/ 3 TD/TT: Vegetable Canner: us Generic External Data Provider IMG MRI PROCEDURE S Final Result documented in this encounter Visit Diagnoses Not on filedocumented in this encounter Additional Health Concerns Assessment Noted Time PHQ-9 Depression Total Score: 15 023 7:10 AM EDT documented as of this encounter Care Teams Hostess Relationship Specialty Start Date End Date Marie Castro DO [address] [facility] [address] [place] [address] PCP - General Internal Medicine 01/08/23 Marie Castro DO [address] [facility] [address] [place] [address] PCP - ACO Reach 09/10/23 Patrick Beard MD 1 [facility] [address] [place], [place] [id number] Referring Physician Gastroenterology 04/17/24 Andrey Grullon MD [address] [facility] [address] [place] [address] Referring Physician Neurology 04/17/24 Saúl Davis MD [address] [place] [address] [address], [address] [place] [address] Referring Physician Cardiology 04/17/24 documented as of this encounter
--- OUTSIDE RECORDS SUMMARY | 2025-04-02 11:40 | XMS_ITS | Encounter Summary ---
Author Organization [facility] Address [address] [place] [address] Care Team Providers Care Head Of Housekeeping Name Role Phone [place] Castro DO Primary Care Provider [place] Castro DO Unavailable [phone] Patrick Beard MD Unavailable Andrey Grullon MD Unavailable [phone] Saúl Davis MD Unavailable [phone] Encounter Details Date Type Department Care Team (Late st Contact Info) Description 09/10/2023 Orders Only [facility] [address] [facility] [address] [place] [address] A, Unknown Practice [address] [place], [place] [id number] Social History Tobacco Use Types Packs/Day Years [...] Procedure Name Priority Date/Time Associated Diagnosis Comments SCANNED LABS Routine 09/05/2023 9:14 AM EST SCANNED LABS Routine 09/01/2023 9:15 AM EST documented in this encounter Results * SCANNED LABS (09/05/2023 9:14 AM EST) us Unknown Practice A LAB CHG PERFORMABLES Final Re sult * SCANNED LABS (09/01/2023 9:15 AM EST) us Unknown Practice A LAB CHG PERFORMABLES Final Re sult documented in this encounter Visit Diagnoses Not on filedocumented in this encounter Additional Health Concerns Assessment Noted Time PHQ-9 Depression Total Score: 15 023 7:10 AM EDT documented as of this encounter Care Teams Head Of Housekeeping Relationship Specialty Start Date End Date [place] Castro DO [address] [place] [address] PCP - General Internal Medicine 01/08/23 Arnold Castro DO [address] [place] [address] PCP - ACO Reach 09/10/23 Patrick Beard MD 1 [facility] [address] [place] [address] Referring Physician Gastroenterology 04/17/24 Andrey Grullon MD [address] [place] [address] Referring Physician Neurology 04/17/24 Saúl Davis MD 703 [facility] 2, [address] [id number] Referring Physician Cardiology 04/17/24 documented as of this encounter
--- OUTSIDE RECORDS SUMMARY | 2025-04-02 11:40 | XMS_ITS | Encounter Summary ---
Author Organization [facility] Address [address] [place] [address] Care Team Providers Care Furnace Repairer Name Role Phone Almita Deras DO Unavailable [phone] [place] Castro DO Primary Care Provider [place] Castro DO Unavailable [phone] Patrick Beard MD Unavailable [phone] Andrey Grullon MD Unavailable Saúl Davis MD Unavailable Encounter Details Date Type Department Care Team (Late st Contact Info) Description 04/30/2023 Orders Only [facility] [address] [facility] [address] [place] [address] A, Unknown Practice [address] [place], [place] [id number] Social History Tobacco Use Types Packs/Day Years Used Date Smoking Tobacco: Every Day Cigarettes Started: 1948 Smokeless Tobacco: Never Alcohol Use Standard Drinks/Week Comments Yes 0 (1 standard drink = 0.6 oz pur e alcohol) caffeine-1 cup per day AUDIT-C Answer Date Recorded Q1: How often [...] Answer Date Recorded Patient Health Questionnaire-2 Score 6 02/05/2023 Sex and Gender Information Value Date Recorded Sex Assigned at Not on file Legal Sex Male 6:39 PM EDT Gender Identity Not on file Sexual Orientation Not on file documented as of this encounter Plan of Treatment Not on file documented as of this encounter Procedures Procedure Name Priority Date/Time Associated Diagnosis Comments CARDIAC CATH Routine 04/28/2023 10:52 AM EDT documented in this encounter Results * CARDIAC CATH (04/28/2023 10:52 AM EDT) Anatomical Region Laterality Modality Radiographic Ijeoma ging us Unknown Practice A IMG XR PROCEDURES Final Resul t documented in this encounter Visit Diagnoses Not on filedocumented in this encounter Additional Health Concerns Assessment Noted Time PHQ-9 Depression Total Score: 15 023 7:10 AM EDT documented as of this encounter Care Teams Furnace Repairer Relationship Specialty Start Date End Date Almita Deras DO [address] [place] [address] PCP - ACO Reach 12/03/22 09/09/23 Arnold Castro DO [address] [place] [address] PCP - General Internal Medicine 01/08/23 Arnold Castro DO [address] [place] [address] PCP - ACO Reach 09/10/23 Patrick eBard MD 1 [facility] [address] [place], [place] [phone] Referring Physician Gastroenterology 04/17/24 Andrey rGullon MD [address] [place] [address] Referring Physician Neurology 04/17/24 Saúl Davis MD 703 [facility] 2, [address] [place] [address] Referring Physician Cardiology 04/17/24 documented as of this encounter
--- OUTSIDE RECORDS SUMMARY | 2025-04-02 11:40 | XMS_ITS | Encounter Summary ---
Author Organization [facility] Address [address] [place] [address] Phone Care Team Providers Care Narrow Fabric Loom Fixer Name Role Phone [place] Castro DO Primary Care Provider Encounter Details Date Type Department Care Team (Late st Contact Info) Description 02/06/2024 Scanned Document [facility] [address] [place] [phone] Scanning, Generic Provider Social History Tobacco Use Types Packs/Day Years Used Date Smoking Tobacco: Former Cigarettes Q uit: 08/09/2022 Smokeless Tobacco: Never Alcohol Use Standard Drinks/Week Comments Yes 7 (1 standard drink = 0.6 oz pur e alcohol) Sex and Gender Information Value Date Recorded Sex Assigned at Not on file Legal Sex Male 11:32 AM EDT Gender Identity Not on file Sexual Orientation Not on file documented as of this encounter Plan of Treatment Not on file documented as of this encounter Procedures Procedure Name Priority Date/Time Associated Diagnosis Comments ECHOCARDIOGRAM 02/06/2024 documented in this encounter Results * Echocardiogram (02/06/2024) Narrative 02/06/2024 Ordered by an unspecified provider. us Generic Provider Scanning CV ECHO PROCEDURES Fin al Result documented in this encounter Visit Diagnoses Not on filedocumented in this encounter Additional Health Concerns Assessment Noted Time A fall risk assessment has been complete d for the patient 08/16/2023 2:07 PM EST documented as of this encounter Care Teams Narrow Fabric Loom Fixer Relationship Specialty Start Date End Date [place] Castro DO [address] [place] [address] PCP - General Internal Medicine 05/18/23 documented as of this encounter
--- OUTSIDE RECORDS SUMMARY | 2025-04-02 11:40 | XMS_ITS | Encounter Summary ---
Author Organization [facility] Address [address] [place] [address] Care Team Providers Care Inspector Boiler Name Role Phone [place] Castro DO Primary Care Provider [place] Castro DO Unavailable Patrick Beard MD Unavailable [phone] Andrey Grullon MD Unavailable [phone] Saúl Davis MD Unavailable [phone] Encounter Details Date Type Department Care Team (Late st Contact Info) Description 01/21/2024 Orders Only [facility] [address] [facility] [address] [place] [phone] A, Unknown Practice [address] [place], [place] [phone] Social History Tobacco Use Types Packs/Day Years [...] Procedure Name Priority Date/Time Associated Diagnosis Comments CT CERVICAL SPINE WO IV CONTRAST Routine 01/21/2024 8:48 AM EDT XR ELBOW 3+ VIEWS LEFT Routine 01/21/2024 8:46 AM EDT XR CHEST 1 VIEW Routine 01/21/2024 8:[address] HEAD WO IV CONTRAST Routine 01/21/2024 8:42 AM EDT XR WRIST LT MIN 3V Routine 01/21/2024 8:40 AM EDT documented in this encounter Results * CT cervical spine wo IV contrast (01/21/2024 8:48 AM EDT) Anatomical Region Laterality Modality Spine, C-spine Computed Tomogra phy us Unknown Practice A IMG CT PROCEDURES Final Resul t * XR elbow 3+ views left (01/21/2024 8:46 AM EDT) Anatomical Region Laterality Modality Upper Extremities, Elbow Left Radiogr aphic Imaging us Unknown Practice A IMG XR PROCEDURES Final Resul t * XR chest 1 view (01/21/2024 8:43 AM EDT) Anatomical Region Laterality Modality Chest Radiographic Ijeoma ging us Unknown Practice A IMG XR PROCEDURES Final Resul t * CT head wo IV contrast (01/21/2024 8:42 AM EDT) Anatomical Region Laterality Modality Head, Neck Computed Tomogra phy us Unknown Practice A IMG CT PROCEDURES Final Resul t * XR WRIST LT MIN 3V (01/21/2024 8:40 AM EDT) Anatomical Region Laterality Modality Radiographic Ijeoma ging us Unknown Practice A IMG XR PROCEDURES Final Resul t documented in this encounter Visit Diagnoses Not on filedocumented in this encounter Additional Health Concerns Assessment Noted Time PHQ-9 Depression Total Score: 15 023 7:10 AM EDT documented as of this encounter Care Teams Inspector Boiler Relationship Specialty Start Date End Date Arnold Castro DO [address] [place] [address] PCP - General Internal Medicine 01/08/23 [place] Castro DO [address] [place] [address] PCP - ACO Reach 09/10/23 Patrick Beard MD 1 [facility] [address] [place] [address] Referring Physician Gastroenterology 04/17/24 Andrey Grullon MD [address] [place] [address] Referring Physician Neurology 04/17/24 Saúl Davis MD 703 [facility] 2, [address] [place] [address] Referring Physician Cardiology 04/17/24 documented as of this encounter
--- OUTSIDE RECORDS SUMMARY | 2025-04-02 11:40 | XMS_ITS | Clinical Summary ---
Author Organization [facility] Address [address] [facility], [address] [place] [address] Care Team Providers Care Computer Publisher Name Role Phone [place] Castro DO Primary Care Provider Allergies No known active allergies Medications PARoxetine (PAXIL) 30 MG tablet Take 30 mg by mouth every morning Active lipase-protease -amylase (CREON) 14535-[address] units delayed release capsule Take 1 capsule by mouth 3 times daily (with meals) Active lipase-protease -amylase (CREON) 48[address] units delayed release capsule Take 12,000 Units by mouth take with snacks Active Loratadine (CLARITIN PO) Take 10 mg by mouth Active Probiotic Product (PROBIOTIC-10 PO) Take 1 capsule by mouth daily Active Multiple Vitamins-Minera ls (LUTEIN-ZEAXANT HIN PO) Take 1 tablet by mouth daily Active pantoprazole (PROTONIX) 40 MG tablet Take 1 tablet by mouth every morning (before breakfast) 90 tablet 1 01/07/2022 Active sucralfate (CARAFATE) 1 GM/10ML suspension Take 10 mLs by mouth 4 times daily 1200 mL 3 01/07/2022 Active amLODIPine (NORVASC) 5 MG tablet Take 1 tablet by mouth daily 30 tablet 3 01/07/2022 Active Active Problems Problem Noted Date Diagnosed Date 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, 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 Social History Tobacco Use Types Packs/Day Years Used Date Smoking Tobacco: Former Cigarettes Smokeless Tobacco: Never Alcohol Use Standard Drinks/Week Comments Not Currently 0 (1 standard drink = 0.6 oz pur e alcohol) Sex and Gender Information Value Date Recorded Sex Assigned at Not on file Legal Sex Male 9:35 AM EDT Gender Identity Not on file Sexual Orientation Not on file Last Filed Vital Signs Vital Sign Reading Time Taken Comments Blood Pressure 130/68 01/08/2022 2:26 PM EDT Pulse 68 01/08/2022 2:26 PM EDT Temperature 36.4 C (97.5 F) 01/08/2022 2:26 PM EDT Respiratory Rate 20 01/08/2022 2:26 PM EDT Oxygen Saturation 98% 01/07/2022 7:46 AM EDT Inhaled Oxygen Concentration - - Weight 65.3 kg (144 lb) 01/08/2022 2:26 PM EDT Height 177.8 cm (5' 10 ) 01/08/2022 2:26 PM EDT Body Mass Index 20.66 01/08/2022 2:26 PM EDT Plan of Treatment Not on file Insurance [place] [address] [place] [address] [employer] [facility] MEDICARE Advance Directives * Full Code (Latest Code Status on File) Date Activated Date Inactivated Comments 01/02/2022 10:32 PM 01/07/2022 3:15 PM * Full Code Date Activated Date Inactivated Comments 01/02/2022 8:11 PM 01/02/2022 10:32 PM Healthcare Agents on File Name Relationship Healthcare Agent [facility] Communication Opal Monsivais Kaley Spouse Primary Decision Maker Saúl Kaley Child Secondary Decision Maker Care Teams Computer Publisher Relationship Specialty Start Date End Date [place] Castro DO [address] [facility] [address] [place] [address] PCP - General Internal Medicine 01/07/22
--- OUTSIDE RECORDS SUMMARY | 2025-04-02 11:40 | XMS_ITS | Encounter Summary ---
Author Organization [facility] Address [address] [place] [address] Care Team Providers Care Language Pathologist Name Role Phone Almita Deras DO Unavailable [phone] [place] Castro DO Primary Care Provider [place] Castro DO Unavailable [phone] Patrick Beard MD Unavailable [phone] Andrey Grullon MD Unavailable [phone] Saúl Davis MD Unavailable [phone] Encounter Details Date Type Department Care Team (Late st Contact Info) Description 09/01/2023 Orders Only [facility] [address] [facility] [address] [place] [phone] A, Unknown Practice [address] [place], [place] [phone] Social History Tobacco Use Types Packs/Day Years [...] Procedure Name Priority Date/Time Associated Diagnosis Comments ESOPHAGOSCOPY Routine 09/01/2023 1:06 PM EST documented in this encounter Results * Esophagoscopy (09/01/2023 1:06 PM EST) Anatomical Region Laterality Modality Endoscopy us Unknown Practice A ENDOSCOPY PROCEDURE ORDERABLE S Final Result documented in this encounter Visit Diagnoses Not on filedocumented in this encounter Additional Health Concerns Assessment Noted Time PHQ-9 Depression Total Score: 15 023 7:10 AM EDT documented as of this encounter Care Teams Language Pathologist Relationship Specialty Start Date End Date Almita Deras DO [address] [place] [address] PCP - ACO Reach 12/03/22 09/09/23 [place] Castro DO [address] [place] [address] PCP - General Internal Medicine 01/08/23 [place] Castro DO [address] [place] [address] PCP - ACO Reach 09/10/23 Patrick Beard MD 1 [place] [facility] [address] [place] [phone] Referring Physician Gastroenterology 04/17/24 Andrey Grullon MD [address] [place] [address] Referring Physician Neurology 04/17/24 Saúl Davis MD 703 [facility] 2, [address] [place] [address] Referring Physician Cardiology 04/17/24 documented as of this encounter
--- OUTSIDE RECORDS SUMMARY | 2025-04-02 11:40 | XMS_ITS | Encounter Summary ---
Author Organization [facility] Address [address] [place] [address] Phone Care Team Providers Care Director Clinical Applications Name Role Phone Arnold Castro DO Primary Care Provider Encounter Details Date Type Department Care Team (Late st Contact Info) Description 04/28/2023 Scanned Document [facility] [address] [place] [id number] Scanning, Generic Provider Social History Tobacco Use [...] Procedure Name Priority Date/Time Associated Diagnosis Comments OUTSIDE IMAGING SCAN 04/28/2023 ECHOCARDIOGRAM 04/28/2023 documented in this encounter Results * ECHOCARDIOGRAM (04/28/2023) Narrative 04/28/2023 Ordered by an unspecified provider. us Generic Provider Scanning CV ECHO PROCEDURES Fin al Result * OUTSIDE IMAGING SCAN (04/28/2023) Anatomical Region Laterality Modality Other Narrative 04/28/2023 Ordered by an unspecified provider. us Generic Provider Scanning OUTSIDE SCAN Final Result documented in this encounter Visit Diagnoses Not on filedocumented in this encounter Care Teams Director Clinical Applications Relationship Specialty Start Date End Date Arnold Castro DO [address] [facility] [address] [place] [id number] PCP - General Internal Medicine 05/18/23 documented as of this encounter
--- OUTSIDE RECORDS SUMMARY | 2025-04-02 11:40 | XMS_ITS | Encounter Summary ---
Author Organization [facility] Address [address] [place] [address] Phone Care Team Providers Care Denial Management Representative Name Role Phone Arnold Castro DO Primary Care Provider Encounter Details Date Type Department Care Team (Late st Contact Info) Description 07/16/2023 Scanned Document [facility] [address] [place] [phone] Scanning, Generic Provider Social History Tobacco Use Types Packs/Day Years Used Date Smoking Tobacco: Some Days Cigarettes Smokeless Tobacco: Never Alcohol Use Standard Drinks/Week Comments Yes 7 (1 standard drink = 0.6 oz pur e alcohol) Sex and Gender Information Value Date Recorded Sex Assigned at Not on file Legal Sex Male 11:32 AM EDT Gender Identity Not on file Sexual Orientation Not on file COVID-19 Exposure Response Date Recorded In the last 10 days, have yo u been in contact with someone who was confirmed or suspected to have Coronavirus/COVID-19? No / Unsure 06/23/2023 2:00 PM EST documented as of this encounter Plan of Treatment Not on file documented as of this encounter Visit Diagnoses Not on filedocumented in this encounter Additional Health Concerns Assessment Noted Time A fall risk assessment has been complete d for the patient 06/23/2023 2:11 PM EST documented as of this encounter Care Teams Denial Management Representative Relationship Specialty Start Date End Date Arnold Castro DO [address] [place] [address] PCP - General Internal Medicine 05/18/23 documented as of this encounter
--- OUTSIDE RECORDS SUMMARY | 2025-04-02 11:40 | XMS_ITS | Encounter Summary ---
Author Organization [facility] Address [address] [place] [address] Care Team Providers Care Pet Trainer Name Role Phone Almita Deras DO Unavailable [phone] Arnold Castro DO Primary Care Provider [phone] Arnold Castro DO Unavailable [phone] Patrick Beard MD Unavailable Andrey Grullon MD Unavailable Saúl Davis MD Unavailable [phone] Encounter Details Date Type Department Care Team (Late st Contact Info) Description 02/04/2023 Abstract [facility] [address] [facility] 230 [place] [phone] Almita Deras, DO [address] [facility] [address] [place] [address] Social History Tobacco Use Types Packs/Day Years [...] on file documented as of this encounter Functional Status * Over the past 2 weeks, how often have you been bothered by any of the following problems? Question Answer Date of Assessment Author Little interest or pleasure in doing things Nearly every day 02/05/2023 7:10 AM Andrei Barahona, DO Feeling down, depressed, or hopeless Nearly every day 02/05/2023 7:10 AM Arnold Barahona DO Patient Health Questionnaire-2 Score 6 02/05/2023 7:10 AM Arnold Barahona, DO * Question Answer Date of Assessment Author Trouble falling or staying asleep, or sleeping too much Nearly every day 02/05/2023 7:10 AM Arnold Barahona , DO Feeling tired or having little energy Nearly every day 02/05/2023 7:10 AM Arnold Barahona , DO Poor appetite or overeating Not at all 02/05/2023 7:10 AM Arnold Barahona , DO Feeling bad about yourself - or that you are a failure or have let yourself or your family down Nearly every day 02/05/2023 7:10 AM Arnold Baarhona , DO Trouble concentrating on things, such as reading the newspaper or watching television Not at all 02/05/2023 7:10 AM Arnold Barahona , DO Moving or speaking so slowly that other people could have noticed? Or the opposite - being so fidgety or restless that you have been moving around a lot more than usual. Not at all 02/05/2023 7:10 AM Arnold Barahona DO Thoughts that you would be better off or hurting yourself in some way Not at all 02/05/2023 7:10 AM Arnold Barahona DO Patient Health Questionnaire-9 Score 15 02/05/2023 7:10 AM EDT Arnold Castro DO documented as of this encounter Plan of Treatment Not on file documented as of this encounter Visit Diagnoses Not on filedocumented in this encounter Care Teams Pet Trainer Relationship Specialty Start Date End Date Almita Deras DO [address] [place] [address] PCP - ACO Reach 12/03/22 09/09/23 Arnold Castro DO [address] [place] [address] PCP - General Internal Medicine 01/08/23 Arnold Castro DO [address] [place] [address] PCP - ACO Reach 09/10/23 Patrick Beard MD 1 [facility] [address] [place] [address] Referring Physician Gastroenterology 04/17/24 Andrey Grullon MD [address] [place] [address] Referring Physician Neurology 04/17/24 Saúl Davis MD [address] [place] [address] [address], [address] [place] [address] Referring Physician Cardiology 04/17/24 documented as of this encounter
--- OUTSIDE RECORDS SUMMARY | 2025-04-02 11:40 | XMS_ITS | Clinical Summary ---
Author Organization [facility] Address [address] [place] [address] Phone Care Team Providers Care Solaris Administrator Name Role Phone Arnold Castro Primary Care Provider Allergies No known active allergies Medications insulin aspart (NovoLOG U-100 Insulin aspart) 100 unit/mL injection Inject 100 Units under the skin 3 times a day before meals. Take as directed per insulin instructions. Active insulin glargine (Lantus U-100 Insulin) 100 unit/mL injection Inject 24 Units under the skin once daily at bedtime. Take as directed per insulin instructions. Active lipase/protease /amylase (CREON ORAL) Take 24,000 mg by mouth 3 times a day. Active PARoxetine (Paxil) 30 mg tablet Take 1 tablet (30 mg) by mouth once daily in the morning. Active aspirin 81 mg EC tablet Take 1 tablet (81 mg) by mouth once daily. Active atorvastatin (Lipitor) 80 mg tablet Take 1 tablet (80 mg) by mouth once daily. Active nitroglycerin (Nitrostat) 0.4 mg SL tabletIndicatio ns:ASHD (arteriosclerot ic heart disease) Place 1 tablet (0.4 mg) under the tongue every 5 minutes if needed for chest pain. May repeat dose every 5 minutes for up to 3 doses total. 100 tablet 11 06/23/2023 Active multivit-min/fe rrous fumarate (MULTI VITAMIN ORAL) Take 1 tablet by mouth once daily. Active cetirizine (ZyrTEC) 10 mg tablet Take 1 tablet (10 mg) by mouth once daily. Active lutein 10 mg tablet Take 1 tablet by mouth once daily. Active cholecalciferol (Vitamin D3) 25 MCG (1000 UT) capsule Take 1 capsule (25 mcg) by mouth once daily. Active furosemide (Lasix) 20 mg tabletIndicatio ns:Cardiomyopat hy, ischemic Take 1 tablet (20 mg) by mouth once daily. 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 He will follow up with primary Cardiology next week Assessment & Plan (06/23/2023 2:37 PM EST): April 2023 TTE LVEF 40 to 45% LVH mild MR trace BMI 20.0-20.9, adult 06/23/2023 Mixed hyperlipidemia 06/23/2023 Abnormal stress test 05/25/2023 ASHD (arteriosclerotic heart disease) 05/25/2023 Assessment & Plan (08/16/2023 2:37 PM EST): Jun 2023 [facility] [place]. Incidental troponin elevations Echo EF 40-45% Cath: two-vessel disease; ef 40% anterior hypokinesis Elective PCI: Jul LAD: unsuccessful attempt - RUBBER TUBING BACKER oDiag PCI/Paris 3.5 x 18mm Daily activity < 4 METs Assessment & Plan (06/23/2023 2:36 PM EST): Apr 2023 cardiac cath: LAD 100% pD1 80% CX 50% Plan: PCI after recovers from hip repair NSTEMI (non-ST elevated myocardial infarction) ( Multi) 05/25/2023 Fractured hip (Multi) 05/25/2023 Essential hypertension 05/25/2023 Assessment & Plan (06/23/2023 2:37 PM EST): Optimal in office Diabetes mellitus type II, non insulin dependent (Multi) 05/25/2023 Assessment & Plan (06/23/2023 2:38 PM EST): On ARB/statin Family History Medical History Relation Name Comments No Known Problems Brother No Known Problems Father No Known Problems Mother Acute lymphoblastic leukemia Sister Relation Name Status Comments Brother Father Mother Sister Social History Tobacco Use Types Packs/Day Years Used Date Smoking Tobacco: Former Cigarettes Q uit: 08/09/2022 Smokeless Tobacco: Never Tobacco Cessation:Counseling Given: Not Answered Alcohol Use Standard Drinks/Week Comments Yes 7 (1 standard drink = 0.6 oz pur e alcohol) Sex and Gender Information Value Date Recorded Sex Assigned at Not on file Legal Sex Male 11:32 AM EDT Gender Identity Not on file Sexual Orientation Not on file Last Filed Vital Signs Vital Sign Reading Time Taken Comments Blood Pressure 134/80 08/16/2023 2:07 PM EST Pulse 72 08/16/2023 2:07 PM EST Temperature - - Respiratory Rate - - Oxygen Saturation - - Inhaled Oxygen Concentration - - Weight 63.5 kg (140 lb) 08/16/2023 2:07 PM EST Height 177.8 cm (5' 10 ) 08/16/2023 2:07 PM EST Body Mass Index 20.09 08/16/2023 2:07 PM EST Plan of Treatment Health Maintenance Due Date Last Done Comments Diabetes: Urine Protein Screening 1935 Lipid Panel 1935 Medicare Annual Wellness Visit (AWV) 1935 Diabetes: Retinopathy Screening 1945 Meningococcal Vaccine (2 - Risk 2-dose series) 11/10/2019 09/15/2019 Diabetes: Hemoglobin A1C 04/04/2022 01/02/2022 COVID-19 Vaccine ( season) 2025 05/18/2023, 05/26/2022, 08/22/2020, Additional history exists Influenza Vaccine (#1) 2025 , 04/29/2022, 04/29/2021, Additional history exists DTaP/Tdap/Td Vaccines (3 - Td or Tdap) 03/18/2028 03/18/2018, 03/18/2015 HIB Vaccines Completed 08/18/2018 Pneumococcal Vaccine Completed 12/26/2019, 09/15/2019, 08/18/2018, Additional history exists RSV High Risk: (Elderly (60+) or Population) Completed 05/18/2023 Zoster Vaccines Completed 05/18/2023, 04/12, 05/02/2021 HPV Vaccines Aged Out No longer eligi ble based on patient's age to complete this topic Hepatitis A Vaccines Aged Out No long er eligible based on patient's age to complete this topic Hepatitis B Vaccines Aged Out No long er eligible based on patient's age to complete this topic IPV Vaccines Aged Out No longer eligi ble based on patient's age to complete this topic Rotavirus Vaccines Aged Out No longer eligible based on patient's age to complete this topic Insurance MEDICARE PART A AND B MEDICARE PART A AND B Care Teams Solaris Administrator Relationship Specialty Start Date End Date Arnold Castro DO [address] [place] [address] PCP - General Internal Medicine 05/18/23
--- OUTSIDE RECORDS SUMMARY | 2025-04-02 11:40 | XMS_ITS | Encounter Summary ---
Author Organization [facility] Address [address] [place] [address] Care Team Providers Care Gauge Checker Name Role Phone Arnold Castro DO Primary Care Provider Arnold Castro DO Unavailable Patrick Beard MD Unavailable Andrey Grullon MD Unavailable Saúl Davis MD Unavailable [phone] Encounter Details Date Type Department Care Team (Late st Contact Info) Description 12/28/2023 Orders Only [facility] [address] [facility] [address] [place] [phone] A, Unknown Practice [address] [place], [place] [phone] Social History Tobacco Use Types Packs/Day Years [...] Diagnosis Comments MR CERVICAL SPINE WO CONTRAST Routine 12/27/2023 1:41 PM EDT documented in this encounter Results * MR cervical spine wo contrast (12/27/2023 1:41 PM EDT) Anatomical Region Laterality Modality Spine, C-spine Magnetic Resonan ce us Unknown Practice A IMG MRI PROCEDURES Final Resu lt documented in this encounter Visit Diagnoses Not on filedocumented in this encounter Additional Health Concerns Assessment Noted Time PHQ-9 Depression Total Score: 15 023 7:10 AM EDT documented as of this encounter Care Teams Gauge Checker Relationship Specialty Start Date End Date Arnold Castro DO [address] [place] [address] PCP - General Internal Medicine 01/08/23 Arnold Castro DO [address] [facility] [address] [place] [address] PCP - ACO Reach 09/10/23 Patrick Beard MD 1 [facility] [address] [place] [id number] Referring Physician Gastroenterology 04/17/24 Andrey Grullon MD [address] [place] [address] Referring Physician Neurology 04/17/24 Saúl Davis MD [address] [facility] 2, [address] [address] Referring Physician Cardiology 04/17/24 documented as of this encounter
--- OUTSIDE RECORDS SUMMARY | 2025-04-02 11:40 | XMS_ITS | Encounter Summary ---
Author Organization [facility] Address [address] [facility] [place] [address] Care Team Providers Care Life Care Planner Name Role Phone Arnold Castro DO Primary Care Provider [phone] Arnold Castro DO Unavailable [phone] Patrick Beard MD Unavailable [phone] Andrey Grullon MD Unavailable Saúl Davis MD Unavailable Encounter Details Date Type Department Care Team (Late st Contact Info) Description 06/19/2024 Orders Only [facility] [address] [facility] [address] [place] [address] A, Unknown Practice [address] [place], [place] [phone] Social History Tobacco Use Types Packs/Day Years Used Date Smoking Tobacco: Former Cigarettes 0.3 30 S tarted: 07/12/1947 Smokeless Tobacco: Never Comments:Has a history [...] Procedure Name Priority Date/Time Associated Diagnosis Comments CBC WITH AUTO DIFFERENTIAL Routine 06/18/2024 4:39 PM EST COMPREHENSIVE METABOLIC PANEL Routine 06/18/2024 4:[address] ABDOMEN PELVIS W AND WO IV CONTRAST Routine 06/16/2024 4:41 PM EST documented in this encounter Results * Comprehensive metabolic panel (06/18/2024 4:39 PM EST) Blood Venous blood specimen / Unknown us Unknown Practice A LAB BLOOD ORDERABLES Final Re sult * CBC auto differential (06/18/2024 4:39 PM EST) Blood Venous blood specimen / Unknown us Unknown Practice A LAB BLOOD ORDERABLES Final Re sult * CT abdomen pelvis w and wo IV contrast (06/16/2024 4:41 PM EST) Anatomical Region Laterality Modality Body, Pelvis, Abdomen Computed T omography us Unknown Practice A IMG CT PROCEDURES Final Resul t documented in this encounter Visit Diagnoses Not on filedocumented in this encounter Additional Health Concerns Assessment Noted Time PHQ-9 Depression Total Score: 15 023 7:10 AM EDT documented as of this encounter Care Teams Life Care Planner Relationship Specialty Start Date End Date Arnold Castro DO [address] [place] [address] PCP - General Internal Medicine 01/08/23 Arnold Castro DO [address] [place] [address] PCP - ACO Reach 09/10/23 Patrick Beard MD [address] [facility] [address] [place] [address] Referring Physician Gastroenterology 04/17/24 Andrey Grullon MD [address] [facility] [address] [place] [address] Referring Physician Neurology 04/17/24 Saúl Davis MD 703 [facility] 2, [address] [place] [address] Referring Physician Cardiology 04/17/24 documented as of this encounter
--- OUTSIDE RECORDS SUMMARY | 2025-04-02 11:40 | XMS_ITS | Encounter Summary ---
Author Organization [facility] Address [address] [place] [address] Care Team Providers Care Horologist Name Role Phone Almita Deras DO Unavailable [phone] Arnold Castro DO Primary Care Provider Arnold Castro DO Unavailable [phone] Patrick Beard MD Unavailable Andrey Grullon MD Unavailable Saúl Davis MD Unavailable Encounter Details Date Type Department Care Team (Late st Contact Info) Description 01/25/2023 Orders Only [facility] [address] [facility] [address] [place] [phone] Provider, MD Wilfrid [address] [place] [address] Social History Tobacco Use Types Packs/Day Years [...] Answer Date Recorded Patient Health Questionnaire-2 Score 2 01/20/2023 Sex and Gender Information Value Date Recorded Sex Assigned at Not on file Legal Sex Male 6:39 PM EDT Gender Identity Not on file Sexual Orientation Not on file documented as of this encounter Plan of Treatment Not on file documented as of this encounter Procedures Procedure Name Priority Date/Time Associated Diagnosis Comments SCANNED LABS Routine 01/22/2023 8:21 AM EDT SCANNED LABS Routine 01/22/2023 8:16 AM EDT documented in this encounter Results * SCANNED LABS (01/22/2023 8:21 AM EDT) us Historical Provider LAB CHG PERFORMABLES Edit ed Result - Final * SCANNED LABS (01/22/2023 8:16 AM EDT) us Historical Provider LAB CHAileen PERFORMABLES Edit ed Result - Final documented in this encounter Visit Diagnoses Not on filedocumented in this encounter Care Teams Horologist Relationship Specialty Start Date End Date Almita Deras DO [address] [place] [address] PCP - ACO Reach 12/03/22 09/09/23 Arnold Castro DO [address] [place] [address] PCP - General Internal Medicine 01/08/23 Arnold Castro DO [address] [place] [address] PCP - ACO Reach 09/10/23 Patrick Beard MD 1 [facility] [address] [place] [address] Referring Physician Gastroenterology 04/17/24 Andrey Grullon MD [address] [facility] [address] [place] [address] Referring Physician Neurology 04/17/24 Saúl Daivs MD 703 [facility] 2, [address] [place] [address] Referring Physician Cardiology 04/17/24 documented as of this encounter
--- OUTSIDE RECORDS SUMMARY | 2025-04-02 11:40 | XMS_ITS | Encounter Summary ---
Author Organization [facility] Address [address] [place] [address] Care Team Providers Care Supervisor Nuclear Medicine Name Role Phone Almita Deras DO Unavailable [phone] Arnold Castro DO Primary Care Provider Arnold Castro DO Unavailable [phone] Patrick Beard MD Unavailable Andrey Grullon MD Unavailable Saúl Davis MD Unavailable [phone] Encounter Details Date Type Department Care Team (Late st Contact Info) Description 08/23/2023 Orders Only [facility] [address] [facility] [address] [place] [phone] A, Unknown Practice [address] [place], [place] [phone] Social History Tobacco Use Types Packs/Day Years [...] Name Priority Date/Time Associated Diagnosis Comments CT HEAD FOR BRAINLAB W/O CONTRAST Routine 08/21/2023 10:35 AM EST documented in this encounter Results * CT HEAD FOR BRAINLAB W/O CONTRAST (08/21/2023 10:35 AM EST) Anatomical Region Laterality Modality Radiographic Ijeoma ging us Unknown Practice A IMG XR PROCEDURES Final Resul t documented in this encounter Visit Diagnoses Not on filedocumented in this encounter Additional Health Concerns Assessment Noted Time PHQ-9 Depression Total Score: 15 023 7:10 AM EDT documented as of this encounter Care Teams Supervisor Nuclear Medicine Relationship Specialty Start Date End Date Almita Deras DO [address] [place] [address] PCP - ACO Reach 12/03/22 09/09/23 Arnold Castro DO [address] [place] [address] PCP - General Internal Medicine 01/08/23 Arnold Castro DO [address] [place] [address] PCP - ACO Reach 09/10/23 Patrick Beard MD 1 [facility] [address] [place] [address] Referring Physician Gastroenterology 04/17/24 Andrey Grullon MD [address] [facility] [address] [place] [address] Referring Physician Neurology 04/17/24 Saúl Davis MD 703 [facility] 2, [address] [place] [address] Referring Physician Cardiology 04/17/24 documented as of this encounter
--- OUTSIDE RECORDS SUMMARY | 2025-04-02 11:40 | XMS_ITS | Encounter Summary ---
Author Organization [facility] Address [address] [place] [address] Care Team Providers Care Industrial Technology Teacher Name Role Phone Almita Deras DO Unavailable [phone] Arnold Castro DO Primary Care Provider [phone] Arnold Castro DO Unavailable [phone] Patrick Beard MD Unavailable Andrey Grullon MD Unavailable Saúl Davis MD Unavailable [phone] Encounter Details Date Type Department Care Team (Late st Contact Info) Description 01/23/2023 Abstract [facility] [address] [facility] 230 [place] [phone] Lit Guerrero, SUEDING MACHINE OPERATOR [address] [facility] 230 [place] [address] Social History Tobacco Use Types Packs/Day Years Used Date Smoking Tobacco: Every Day Cigarettes Started: 1948 Smokeless Tobacco: Never Tobacco Cessation:Ready to Q uit: Not Asked; Counseling Given: Not Answered Alcohol Use Standard Drinks/Week Comments Yes 0 [...] on filedocumented in this encounter Care Teams Industrial Technology Teacher Relationship Specialty Start Date End Date Almita Deras DO [address] [place] [address] PCP - ACO Reach 12/03/22 09/09/23 Arnold Castro DO [address] [place] [address] PCP - General Internal Medicine 01/08/23 Arnold Castro DO [address] [place] [address] PCP - ACO Reach 09/10/23 Patrick Beard MD 1 [facility] [address] [place] [address] Referring Physician Gastroenterology 04/17/24 Andrey Grullon MD [address] [place] [address] Referring Physician Neurology 04/17/24 Saúl Davis MD 703 [facility] 2, [address] [place] [address] Referring Physician Cardiology 04/17/24 documented as of this encounter
--- OUTSIDE RECORDS SUMMARY | 2025-04-02 11:40 | XMS_ITS | Encounter Summary ---
Author Organization [facility] Address [address] [facility] [place] [address] Care Team Providers Care Manager Heavy Equipment Name Role Phone Arnold Castro DO Primary Care Provider Arnold Castro DO Unavailable Patrick Beard MD Unavailable Andrey Grullon MD Unavailable Saúl Davis MD Unavailable [phone] Encounter Details Date Type Department Care Team (Late st Contact Info) Description 01/03/2025 [facility] [address] [facility] [address] [place] [phone] Arnold Castro DO [address] [facility] [address] [place] [address] XR chest 2 views, CT angiogram chest Social History Tobacco Use Types Packs/Day Years [...] documented as of this encounter Care Teams Manager Heavy Equipment Relationship Specialty Start Date End Date Arnold Castro DO [address] [place] [address] PCP - General Internal Medicine 01/08/23 Arnold Castro DO [address] [facility] [address] [place] [address] PCP - ACO Reach 09/10/23 Patrick Beard MD 1 [facility] [address] [place] [address] Referring Physician Gastroenterology 04/17/24 Andrey Grullon MD [address] [facility] [address] [place] [address] Referring Physician Neurology 04/17/24 Saúl Davis MD 703 [facility] 2, [address] [place] [address] Referring Physician Cardiology 04/17/24 documented as of this encounter
--- OUTSIDE RECORDS SUMMARY | 2025-04-02 11:40 | XMS_ITS | Encounter Summary ---
Author Organization [facility] Address [address] [place] [address] Phone Care Team Providers Care Bisque Grader Name Role Phone Arnold Castro DO Primary Care Provider Encounter Details Date Type Department Care Team (Late st Contact Info) Description 06/23/2023 Scanned Document [facility] [address] [place] [phone] Scanning, Generic Provider Social History Tobacco Use [...] documented as of this encounter Care Teams Bisque Grader Relationship Specialty Start Date End Date Arnold Castro DO [address] [place] [address] PCP - General Internal Medicine 05/18/23 documented as of this encounter
--- OUTSIDE RECORDS SUMMARY | 2025-04-02 11:40 | XMS_ITS | Encounter Summary ---
Author Organization [facility] Address [address] [place] [address] Care Team Providers Care Cat Wagon Operator Name Role Phone Arnold Castro DO Primary Care Provider Arnold Castro DO Unavailable Patrick Beard MD Unavailable Andrey Grullon MD Unavailable [phone] Saúl Davis MD Unavailable Encounter Details Date Type Department Care Team (Late st Contact Info) Description 09/23/2023 Orders Only [facility] [address] [facility] [address] [place] [address] A, Unknown Practice [address] [place], [place] [address] Social History Tobacco Use Types Packs/Day Years [...] Date/Time Associated Diagnosis Comments SCANNED LABS Routine 09/22/2023 2:10 PM EDT documented in this encounter Results * SCANNED LABS (09/22/2023 2:10 PM EDT) us Unknown Practice A LAB CHG PERFORMABLES Final Re sult documented in this encounter Visit Diagnoses Not on filedocumented in this encounter Additional Health Concerns Assessment Noted Time PHQ-9 Depression Total Score: 15 023 7:10 AM EDT documented as of this encounter Care Teams Cat Wagon Operator Relationship Specialty Start Date End Date Arnold Castro DO [address] [place] [address] PCP - General Internal Medicine 01/08/23 Arnold Castro DO [address] [place] [address] PCP - ACO Reach 09/10/23 Patrick Beard MD 1 [facility] [address] [place] [address] Referring Physician Gastroenterology 04/17/24 Andrey Grullon MD [address] [place] [address] Referring Physician Neurology 04/17/24 Saúl Davis MD 703 [facility] 2, [address] [place] [address] Referring Physician Cardiology 04/17/24 documented as of this encounter
--- OUTSIDE RECORDS SUMMARY | 2025-04-02 11:40 | XMS_ITS | Encounter Summary ---
Author Organization [facility] Address [address] [place] [address] Care Team Providers Care Key Cutter Name Role Phone Almita Deras DO Unavailable [phone] Arnold Castro DO Primary Care Provider Arnold Castro DO Unavailable [phone] Patrick Beard MD Unavailable [phone] Andrey Grullon MD Unavailable Saúl Davis MD Unavailable Encounter Details Date Type Department Care Team (Late st Contact Info) Description 02/01/2023 Orders Only [facility] [address] [facility] [address] [place] [phone] A, Unknown Practice [address] [place], [place] [phone] Social History Tobacco Use Types Packs/Day Years [...] Associated Diagnosis Comments SCANNED LABS Routine 01/22/2023 3:51 PM EDT documented in this encounter Results * SCANNED LABS (01/22/2023 3:51 PM EDT) us Unknown Practice A LAB CHG PERFORMABLES Final Re sult documented in this encounter Visit Diagnoses Not on filedocumented in this encounter Care Teams Key Cutter Relationship Specialty Start Date End Date Almita Deras DO [address] [place] [address] PCP - ACO Reach 12/03/22 09/09/23 Arnold Castro DO [address] [place] [address] PCP - General Internal Medicine 01/08/23 Arnold Castro DO [address] [place] [address] PCP - ACO Reach 09/10/23 Patrick Beard MD 1 [facility] [address] [place] [id number] Referring Physician Gastroenterology 04/17/24 Andrey Grullon MD [address] [place] [address] Referring Physician Neurology 04/17/24 Saúl Davis MD 703 [facility] 2, [address] [place] [address] Referring Physician Cardiology 04/17/24 documented as of this encounter
--- OUTSIDE RECORDS SUMMARY | 2025-04-02 11:40 | XMS_ITS | Encounter Summary ---
Author Organization [facility] Address [address] [facility] [place] [address] Care Team Providers Care Wildlife Biology Internship Name Role Phone Arnold Castro DO Primary Care Provider Arnold Castro DO Unavailable [phone] Patrick Beard MD Unavailable Andrey Grullon MD Unavailable Saúl Davis MD Unavailable Encounter Details Date Type Department Care Team (Late st Contact Info) Description 05/17/2024 Orders Only [facility] [address] [facility] [address] [place] [address] A, Unknown Practice [address] [place], [place] [address] Social History Tobacco Use Types Packs/Day Years [...] Procedure Name Priority Date/Time Associated Diagnosis Comments BASIC METABOLIC PANEL Routine 05/16/2024 3:52 PM EST documented in this encounter Results * Basic metabolic panel (05/16/2024 3:52 PM EST) Blood Venous blood specimen / Unknown us Unknown Practice A LAB BLOOD ORDERABLES Final Re sult documented in this encounter Visit Diagnoses Not on filedocumented in this encounter Additional Health Concerns Assessment Noted Time PHQ-9 Depression Total Score: 15 023 7:10 AM EDT documented as of this encounter Care Teams Wildlife Biology Internship Relationship Specialty Start Date End Date Arnold Castro DO [address] [place] [address] PCP - General Internal Medicine 01/08/23 Arnold Castro DO [address] [place] [address] PCP - ACO Reach 09/10/23 Patrick Beard MD 1 [facility] [address] [place] [phone] Referring Physician Gastroenterology 04/17/24 Andrey Grullon MD [address] [place] [address] Referring Physician Neurology 04/17/24 Saúl Davis MD 703 [facility] 2, [facility] [address] [place] [address] Referring Physician Cardiology 04/17/24 documented as of this encounter
--- OUTSIDE RECORDS SUMMARY | 2025-04-02 11:40 | XMS_ITS | Encounter Summary ---
Author Organization [facility] Address [address] [place] [address] Care Team Providers Care Sales Product Specialist Name Role Phone Almita Deras DO Unavailable [phone] Marie Castro DO Primary Care Provider [phone] Marie Castro DO Unavailable [phone] Patrick Beard MD Unavailable [phone] Andrey Grullon MD Unavailable [phone] Saúl Davis MD Unavailable [phone] Encounter Details Date Type Department Care Team (Late st Contact Info) Description 04/12/2023 Clinisync Result Encounter [facility] External Department Unsolicited [...] Procedure Name Priority Date/Time Associated Diagnosis Comments US RENAL AND BLADDER 04/12/2023 10:08 AM EDT documented in this encounter Results * US RENAL AND BLADDER (04/12/2023 10:08 AM EDT) Anatomical Region Laterality Modality Radiographic Ijeoma ging 04/12/2023 10:0 8 AM EDT Narrative 04/12/2023 10:08 [place] [address] Ultrasound Report Signed Patient: ASHWINI ROCHE MR#: [id number] : 1935 Acct:[id number] Age/Sex: 88 / M ADM Date: 04/12/23 Loc: US Attending Dr: Non-Staff Physician Mikel Ordering Physician: Maci Morton M.D. Date of Service: 04/12/23 Procedure(s): US renal bladder Accession Number(s): [id number] cc: PhysicianMaci M.D.; MARIE CASTRO [address] [address] Patient Name: ASHWINI ROCHE MRN: [id number] date: 1935 Sex: M Assigned Patient Location: US Current Patient Location: US Accession/Order Number: [id number] Exam Date: 04/12/2023 09:03 Report Date: 04/12/2023 10:08 At the request of: NON-STAFF PHYSICIAN Procedure: US renal bladder EXAM: US renal bladder HISTORY: Urinary Tract Infection N39.0 COMPARISON: None. TECHNIQUE: Ultrasound of the kidneys and urinary bladder FINDINGS: The right kidney measures 11.0 x 6.6 x 7.3 cm contains multiple cysts, largest measuring up to 4.3 cm. The left kidney measures 11.4 x 5.0 x 7.0 cm and contains a cyst measuring up to 2.3 cm. There is moderate hydronephrosis. No renal calculus is identified, bilaterally. Urinary bladder wall thickness taken containing multiple diverticula, largest measuring up to 1.3 cm. The prevoid volume was 469 cc. Postvoid volume was 226 cc. US/US renal bladder IMPRESSION: Moderate left hydronephrosis. Bilateral renal cysts. No nephrolithiasis, bilaterally. 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 Urinary retention. Electronically authenticated by: SERGEI VILLASENOR Date: 04/12/2023 10:08 Dictated By: Sergei Villasenor M.D. Signed By: 04/12/23 1011 DD/ 1008 TD/TT: [employer] Librarian: Procedure Note Radiology, Radiologist, - 04/15/2023 [place] [address] Ultrasound Report Signed Patient: ASHWINI ROCHE R#: [id number] : 1935cct:[id number] Age/Sex: 88 / MADM Date: 04/12/23 Loc: US Attending Dr: Haley-Staff Physician Morin Ordering Physician: Maci Morton M.D. Date of Service: 04/12/23 Procedure(s): US renal bladder Accession Number(s): [id number] cc: PhysicianMaci M.D.; MARIE CASTRO [place] [id number] Patient Name: ASHWINI ROCHE MRN: [id number] date: 1935 Sex: M Assigned Patient Location: US Current Patient Location: US Accession/Order Number: [id number] Exam Date: 04/12/2023 09:03 Report Date: 04/12/2023 10:08 At the request of: NON-STAFF PHYSICIAN Procedure: US renal bladder EXAM: US renal bladder HISTORY: Urinary Tract Infection N39.0 COMPARISON: None. TECHNIQUE: Ultrasound of the kidneys and urinary bladder FINDINGS: The right kidney measures 11.0 x 6.6 x 7.3 cm contains multiple cysts, largest measuring up to 4.3 cm. The left kidney measures 11.4 x 5.0x 7.0 cm and contains a cyst measuring up to 2.3 cm. There is moderate hydronephrosis. No renal calculus is identified, bilaterally. Urinarybladder wall thickness taken containing multiple diverticula, largest measuring upto 1.3 cm. The prevoid volume was 469 cc. Postvoid volume was 226 cc. US/US renal bladder IMPRESSION: Moderate left hydronephrosis. Bilateral renal cysts. No nephrolithiasis, bilaterally. 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 Urinaryretention. Electronically authenticated by: SERGEI VILLASENOR Date: 04/12/2023 10:08 Dictated By: Sergei Villasenor M.D. Signed By:04/12/23 1011 DD/ 1008 TD/TT: [employer] Librarian: us Generic External Data Provider IMG XR PROCEDURES Final Result documented in this encounter Visit Diagnoses Not on filedocumented in this encounter Additional Health Concerns Assessment Noted Time PHQ-9 Depression Total Score: 15 023 7:10 AM EDT documented as of this encounter Care Teams Sales Product Specialist Relationship Specialty Start Date End Date Almita Deras DO [address] [place] [address] PCP - ACO Reach 12/03/22 09/09/23 Marie Castro DO [address] [place] [address] PCP - General Internal Medicine 01/08/23 Marie Castro DO [address] [place] [address] PCP - ACO Reach 09/10/23 Patrick Beard MD 1 [facility] [address] [place], [place] [phone] Referring Physician Gastroenterology 04/17/24 Andrey Grullon MD [address] [place] [address] Referring Physician Neurology 04/17/24 Saúl Davis MD 703 [facility] 2, [address] [place] [address] Referring Physician Cardiology 04/17/24 documented as of this encounter
--- OUTSIDE RECORDS SUMMARY | 2025-04-02 11:40 | XMS_ITS | Encounter Summary ---
Author Organization [facility] Address [address] [place] [address] Care Team Providers Care Lawn Sprinkler Installer Name Role Phone Almita Deras DO Unavailable [phone] Arnold Castro DO Primary Care Provider Arnold Castro DO Unavailable [phone] Patrick Beard MD Unavailable Andrey Grullon MD Unavailable Saúl Davis MD Unavailable Encounter Details Date Type Department Care Team (Late st Contact Info) Description 04/12/2023 Orders Only [facility] [address] [facility] [address] [place] [address] A, Unknown Practice [address] [place], [place] [phone] Social History Tobacco Use Types Packs/Day Years [...] Priority Date/Time Associated Diagnosis Comments US RENAL KIDNEY AND BLADDER Routine 04/12/2023 11:24 AM EDT documented in this encounter Results * US RENAL KIDNEY AND BLADDER (04/12/2023 11:24 AM EDT) Anatomical Region Laterality Modality Radiographic Ijeoma ging us Unknown Practice A IMG XR PROCEDURES Final Resul t documented in this encounter Visit Diagnoses Not on filedocumented in this encounter Additional Health Concerns Assessment Noted Time PHQ-9 Depression Total Score: 15 023 7:10 AM EDT documented as of this encounter Care Teams Lawn Sprinkler Installer Relationship Specialty Start Date End Date Almita Deras DO [address] [place] [address] PCP - ACO Reach 12/03/22 09/09/23 Arnold Castro DO [address] [place] [address] PCP - General Internal Medicine 01/08/23 Arnold Castro DO [address] [place] [address] PCP - ACO Reach 09/10/23 Patrick Beard MD 1 [facility] [address] [place] [phone] Referring Physician Gastroenterology 04/17/24 Andrey Grullon MD [address] [place] [address] Referring Physician Neurology 04/17/24 Saúl Davis MD 703 [facility] 2, [address] [place] [address] Referring Physician Cardiology 04/17/24 documented as of this encounter
--- OUTSIDE RECORDS SUMMARY | 2025-04-02 11:40 | XMS_ITS | Encounter Summary ---
Author Organization [facility] Address [address] [place] [address] Care Team Providers Care Dixonac Operator Name Role Phone Almita Deras DO Unavailable [phone] Arnold Castro DO Primary Care Provider Arnold Castro DO Unavailable [phone] Patrick Beard MD Unavailable Andrey Grullon MD Unavailable [phone] Saúl Davis MD Unavailable [phone] Encounter Details Date Type Department Care Team (Late st Contact Info) Description 08/31/2023 Orders Only [facility] [address] [facility] [address] [place] [phone] A, Unknown Practice [address] [place], [place] [phone] Social History Tobacco Use Types Packs/Day Years [...] CT CERVICAL SPINE WO IV CONTRAST Routine 08/31/2023 9:29 AM EST XR CHEST 1 VIEW Routine 08/31/2023 8:[address] HEAD/BRAIN W & WO CONTRAST Routine 08/31/2023 8:57 AM EST documented in this encounter Results * CT cervical spine wo IV contrast (08/31/2023 9:29 AM EST) Anatomical Region Laterality Modality Spine, C-spine Computed Tomogra phy us Unknown Practice A IMG CT PROCEDURES Final Resul t * XR chest 1 view (08/31/2023 8:59 AM EST) Anatomical Region Laterality Modality Chest Radiographic Ijeoma ging us Unknown Practice A IMG XR PROCEDURES Final Resul t * CT HEAD/BRAIN W & WO CONTRAST (08/31/2023 8:57 AM EST) Anatomical Region Laterality Modality Radiographic Ijeoma ging us Unknown Practice A IMG XR PROCEDURES Final Resul t documented in this encounter Visit Diagnoses Not on filedocumented in this encounter Additional Health Concerns Assessment Noted Time PHQ-9 Depression Total Score: 15 023 7:10 AM EDT documented as of this encounter Care Teams Dixonac Operator Relationship Specialty Start Date End Date Almita Deras DO [address] [place] [address] PCP - ACO Reach 12/03/22 09/09/23 Arnold Castro DO [address] [place] [address] PCP - General Internal Medicine 01/08/23 Arnold Castro DO [address] [facility] [address] [place] [address] PCP - ACO Reach 09/10/23 Patrick Beard MD 1 [facility] [address] [place], [place] [phone] Referring Physician Gastroenterology 04/17/24 Andrey Grullon MD [address] [facility] [address] [place] [address] Referring Physician Neurology 04/17/24 Saúl Davis MD [address] [place] [address] [address], [address] [place] [address] Referring Physician Cardiology 04/17/24 documented as of this encounter
--- OUTSIDE RECORDS SUMMARY | 2025-04-02 11:41 | XMS_ITS | Clinical Summary ---
Author Organization [facility] Address [address] [facility] [place] [address] Care Team Providers Care Manager Nursing Home Name Role Phone Unavailable Primary Care Provider Unavailabl e Source Comments The following information is NOT included in Care Everywhere downloads:Psychiatric notes, ECG results, Cardiac Rehab notes, Pulmonary Function notes, data from SmartForms (includes but not limited toPregnancy data,audiograms, eye exams, pre-surgical evaluation notes, well-child exam data).[facility] Social History Tobacco Use Types Packs/Day Years Used Date Smoking Tobacco: Never Assessed Sex and Gender Information Value Date Recorded Sex Assigned at Not on file Legal Sex Male 9:47 AM EST Gender Identity Not on file Sexual Orientation Not on file Last Filed Vital Signs Vital Sign Reading Time Taken Comments Blood Pressure 142/70 06/02/2023 9:30 AM EST Pulse 77 06/02/2023 9:30 AM EST Temperature - - Respiratory Rate 15 06/02/2023 9:30 AM EST Oxygen Saturation 100% 06/02/2023 9:30 AM EST Inhaled Oxygen Concentration - - Weight - - Height - - Body Mass Index - - Plan of Treatment Health Maintenance Due Date Last Done Comments Tdap Booster 1953 Hepatitis A (HAV) Vaccine (optional start 19+ years) 0 1956 Pneumococcal Vaccine(s) (50+ yrs) (1 of 1 - PCV) 03/23 Shingles (RZV) Vaccine (1 of 2) 1987 Hepatitis B (HBV) Vaccine (optional start 60+ years) 0 1997 RSV vaccine (adult) (1 - 1-dose 75+ series) 2012 COVID-19 Vaccine (1 - 2023- season) 2025 Influenza Vaccine (#1) 2025
--- OUTSIDE RECORDS SUMMARY | 2025-04-02 11:41 | XMS_ITS | Encounter Summary ---
Author Organization [facility] Address [address] [place] [address] Care Team Providers Care Cooper Helper Name Role Phone Arnold Castro DO Primary Care Provider Anatoly Anne APRN.HUMAN PERFORMANCE CONSULTANT Unavailable [phone] Source Comments In the event this information is protected by the Federal Confidentiality of Alcohol and Drug AbusePatient Records regulations: The Federal rules restrict any use of the information to criminally investigate or prosecute any alcohol or drug abuse patient.[facility] Encounter Details Date Type Department Care Team ([facility] st Contact Info) Description 03/28/2025 Results Follow-Up Endocrinology [address] [place], [place] [phone] Sandra Christine LPN Social History Tobacco Use Types Packs/Day Years Used Date Smoking Tobacco: Former Cigarettes Q uit: 03/15/2018 Smokeless Tobacco: Never Alcohol Use Standard Drinks/Week Comments Yes 0 (1 standard drink = 0.6 oz pur e alcohol) social use Area Deprivation Index Answer Date Luis Alfredo rded National Score (1-100), lower number is lower ri sk 87 07/06/2024 State Score (1-10), lower number is lower risk 8 07/06/2024 Data from: https://www.neighborhoodatlas.medicine.[facility].edu/. Last address used for calculation [address] [facility] 07/06/2024 Sex and Gender Information Value Date Recorded Sex Assigned at Not on file Legal Sex Male 9:09 AM EDT Gender Identity Not on file Sexual Orientation Not on file documented as of this encounter Plan of Treatment Upcoming Encounters Date Type Department Care Team (Late st Contact Info) Description 04/09/2025 2:00 PM EDT Office Visit Endocrinology [address] [facility] [place] [address] Jessi oCmer, GROUNDS WORKER.HUMAN PERFORMANCE CONSULTANT [address] [facility] [place] [address] *R/S from 01/25 documented as of this encounter Visit Diagnoses Not on filedocumented in this encounter Care Teams Cooper Helper Relationship Specialty Start Date End Date Arnold Castro DO [address] [place] [address] PCP - General Internal Medicine 03/30/18 Anatoly Anne APRN.HUMAN PERFORMANCE CONSULTANT [address] [place] [address] Referring Internal Medicine 04/26/24 documented as of this encounter
--- OUTSIDE RECORDS SUMMARY | 2025-04-02 11:41 | XMS_ITS | Encounter Summary ---
Author Organization [employer] Address [facility] [id number] [address] [place] [address] Care Team Providers Care Seamer Name Role Phone Unavailable Primary Care Provider Unavailabl e Encounter Details Date Type Department Care Team (Latest Contact Info) Description 02/06/2024 Telephone [facility] Buffy Singh, YARELY Social History Tobacco Use Types Packs/Day Years Used Date Smoking Tobacco: Former Cigarettes Q uit: 04/11/2023 Smokeless Tobacco: Never Alcohol Use Standard Drinks/Week Comments Yes 16 (1 standard drink = 0.6 oz pu re alcohol) [facility] Utilities Answer Date Recorded In the past 12 months has [employer] electric, gas, oil, or water company threatened to shut off services in your home? No 01/21/2024 Social Connection and Isolat ion Panel [NHANES] Answer Date Recorded In a typical week, how many times do you talk on the phone with family, friends, or neighbors? More than three times a week 01/21/2024 How often do you get togethe r with friends or relatives? More than three times a week 01/21/2024 How often do you attend chur ch or judaism services? More than 4 times per year 01/21/2024 Do you belong to any clubs o r organizations such as yazidism groups, unions, fraternal or athletic groups, or school groups? Yes 01/21/2024 How often do you attend meet ings of the clubs or organizations you belong to? More than 4 times per year 01/21/2024 Are you , , di vorced, , never , or living with a partner? 01/21/2024 AUDIT-C Answer Date Recorded Q1: How often do you have a drink containing alcohol? 4 or more times a week 01/21/2024 Q2: How many drinks containi ng alcohol do you have on a typical day when you are drinking? 1 or 2 Q3: How often do you have si x or more drinks on one occasion? Never 01/21/2024 Overall Financial Resource Strain (CARDIA) Answe r Date Recorded How hard is it for you to pa y for the very basics like food, housing, medical care, and heating? Not hard at all 01/21/2024 PHQ-2 Answer Date Recorded Total Score 3 01/21/2024 [facility] - Occupational Stress Questionnaire Answer Date Recorded Do you feel stress - tense, restless, nervous, or anxious, or unable to sleep at night because your mind is troubled all the time - these days? Only a little 01/21/2024 Exercise Vital Sign Answer Date Recorde d On average, how many days pe r week do you engage in moderate to strenuous exercise (like a brisk walk)? 7 days 01/21/2024 On average, how many minutes do you engage in exercise at this level? 60 min 01/21/2024 PRAPARE - Transportation Answer Date Re corded In the past 12 months, has l ack of transportation kept you from medical appointments or from getting medications? No 01/09 In the past 12 months, has l ack of transportation kept you from meetings, work, or from getting things needed for daily living? No 01/21/2024 Housing Instability Answer Date Recorde d Are you worried or concerned that in the next two months you may not have stable housing that you own, rent or stay in as a part of a household? No 01/21/2024 Childcare Answer Date Recorded Do problems getting child ca re make it difficult for you to work or study? No 01/21/2024 Employment Answer Date Recorded Do you need help finding a [facility] career center and/or a training program? No 01/21/2024 Hunger Screening Answer Date Recorded Within the past 12 months we worried whether our food would run out before we got money to buy more. Never True 01/21/2024 Within the past 12 months th e food we bought just didn't last and we didn't have money to get more. Never True 01/21/2024 Purpose - Life Answer Date Recorded I have a purpose and direction in my life. Agree 01/21/2024 Sex and Gender Information Value Date Recorded Sex Assigned at Not on file Legal Sex Male 10:06 AM EST Gender Identity Male 01/21/2024 11:37 AM EDT Sexual Orientation Straight 01/21/2024 11 :37 AM EDT documented as of this encounter Plan of Treatment Not on file documented as of this encounter Visit Diagnoses Not on filedocumented in this encounter Additional Health Concerns Assessment Noted Time PHQ-9 Depression Total Score: 3 01/21/20 24 11:50 AM EDT documented as of this encounter
--- OUTSIDE RECORDS SUMMARY | 2025-04-02 11:41 | XMS_ITS | Clinical Summary ---
Author Organization [facility] Address [address] [place] [id number] Care Team Providers Care Top Dyeing Machine Loader Name Role Phone Arnold Castro Primary Care Provider Anatoly Anne APRN.CONSULTING SERVICES MANAGER Unavailable [phone] Allergies No known active allergies Medications folic acid/multivit-m in/lutein (CENTRUM SILVER ORAL) Take by mouth once daily. Active aspirin, enteric coated (ASPIRIN, ENTERIC COATED) 81 mg EC tablet Take 81 mg by mouth once daily. Active cholecalciferol (VITAMIN D-3) 2,000 unit tablet Take 2,000 Units by mouth once daily. Active cetirizine (ZYRTEC) 10 mg tablet Take 10 mg by mouth once daily. Active Lactobac no.41/Bifidobac t no.7 (PROBIOTIC-10 ORAL) Take by mouth once daily. Active lutein-zeaxanth in 25-5 mg cap Take by mouth once daily. Active lipase-protease -amylase (CREON) 24,000-76,000 -120,000 unit cpDR Take 2 capsules by mouth three times daily with meals. and 1 with snacks (8/day) 240 capsule 5 05/02/20 18 Active tamsulosin (FLOMAX) 0.4 mg Take 0.4 mg by mouth. Active Omeprazole Magnesium 20 mg tablet Take 20 mg by mouth. 04/05/20 24 025 Active metoprolol succinate ER (TOPROL XL) 50 mg 24 hr tablet Take 0.5 tablets by mouth every 12 hours. 06/21/20 24 Active PARoxetine (PAXIL) 40 mg tablet Take 40 mg by mouth every morning. Active lisinopril 2.5 mg tablet Take 2.5 mg by mouth. 03/27/20 24 Active glucagon (GVOKE HYPOPEN 2-PACK) 1 mg/0.2 mL auto-injector Inject 1 mg subcutaneously as needed. 0.4 mL 3 07/06/20 24 Active dapagliflozin propanediol (FARXIGA) 10 mg tablet Take 1 tablet by mouth once daily. 08/30/19 25 Active spironolactone (ALDACTONE) 25 mg tablet Take 25 mg by mouth once daily. Active atorvastatin (LIPITOR) 80 mg tablet Take 80 mg by mouth daily at bedtime. 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 3 each 11 01/02/20 25 Active Active Problems Problem Noted Date Diagnosed Date IPMN (intraductal papillary mucinous neoplasm) 1 08/24/2017 Overview (06/23/2018): Added automatically from request for surgery [id number] Encounters Date Type Department Care Team Description 03/30/2025 Patient [facility] HB-[address] [place] [address] Mariela Robertson RPh At your next appointment, choose [facility]. 03/28/2025 Results Follow-Up Endocrinology [address] [facility] [place] [address] Sandra Christine LPN 03/16/2025 Orders Only Endocrinology [address] [facility] [place] [address] Jessi Comer, ELECTRICAL DEVELOPMENT ENGINEER.CONSULTING SERVICES MANAGER 02/05/2025 Get Medical Advice Rheumatology [address] [facility] [place] [address] Anatoly Anne APRN.CONSULTING SERVICES MANAGER Blood test 02/05/2025 Telephone [facility]ocrinology [address] [facility] [place] [address] Jessi Comer, ELECTRICAL DEVELOPMENT ENGINEER.CONSULTING SERVICES MANAGER [facility] form 01/01/2025 Get Medical Advice Endocrinology [address] [facility] [place] [address] Jessi Comer, ELECTRICAL DEVELOPMENT ENGINEER.CONSULTING SERVICES MANAGER Rx for sensors from Last 3 Months Social History Tobacco Use Types Packs/Day Years Used Date Smoking Tobacco: Former Cigarettes Q uit: 03/15/2018 Smokeless Tobacco: Never Tobacco Cessation:Counseling Given: Not Answered Alcohol Use Standard Drinks/Week Comments Yes 0 (1 standard drink = 0.6 oz pur e alcohol) social use Area Deprivation Index Answer Date Luis Alfredo rded National Score (1-100), lower number is lower ri sk 87 07/06/2024 State Score (1-10), lower number is lower risk 8 07/06/2024 Data from: https://www.neighborhoodatlas.medicine.[facility].edu/. Last address used for calculation [address] [place] [address] 07/06/2024 Sex and Gender Information Value Date Recorded Sex Assigned at Not on file Legal Sex Male 9:09 AM EDT Gender Identity Not on file Sexual Orientation Not on file Last Filed Vital Signs Vital Sign Reading Time Taken Comments Blood Pressure 163/80 10/26/2024 12:09 PM EDT Pulse 60 10/26/2024 12:09 PM EDT Temperature 36.9 C (98.4 F) 06/14/2018 9:20 AM EST Respiratory Rate - - Oxygen Saturation 99% 10/26/2024 12:09 PM EDT Inhaled Oxygen Concentration - - Weight 61 kg (134 lb 7.7 oz) 10/26/2024 12:09 PM EDT Height 177.8 cm (5' 10 ) 10/26/2024 12:09 PM EDT Body Mass Index 19.3 10/26/2024 12:09 PM EDT Plan of Treatment Upcoming Encounters Date Type Department Care Team (Late st Contact Info) Description 04/09/2025 2:00 PM EDT Office Visit Endocrinology [address] [facility] [address] Jessi Comer, ELECTRICAL DEVELOPMENT ENGINEER.CONSULTING SERVICES MANAGER [address] [place] [address] *R/S from 01/25 Health Maintenance Due Date Last Done Comments Diabetic Foot Exam 1947 Dilated Retinal Exam 1947 Anxiety Screening 1955 Depression Screening 1953 Medicare Annual Wellness Visit 03/12/2002 Advance Directive Discussion 07/12/2024 HbA1C 01/25/2025 10/26/2024, 1212/2023, 04/17/2024, Additional history exists Influenza Vaccine (#1) 2025 , 05/19/2023, 04/29/2022, Additional history exists LDL Cholesterol 09/25/2025 09/25/2024, 09/25/2024 Urine Albumin:Creatinine Ratio 09/25/2025 09/25/2024 , 09/25/2024 DTaP,Tdap,Td Vaccine (4 - Td or Tdap) 11/04/2033 11/05/2023, 03/18/2018, 03/18/2015 Pneumococcal Vaccine: 50+ Completed 2019, 09/15/2019, 08/18/2018, Additional history exists RSV Vaccine Completed 05/18/2023 Shingrix Vaccine Completed 05/18/2023, , 05/02/2021 Procedures Procedure Name Priority Date/Time Associated Diagnosis Comments EXTERNAL LAB 03/19/2025 1:31 PM EDT EXTERNAL LAB 02/19/2025 2:21 PM EDT GLUTAMIC AC DECARBOXYLASE AB Routine 02/13/2025 HEMOGLOBIN A1C (POC) Routine 10/26/2024 12:16 PM EDT ALBUMIN/CREATININE RATIO, URINE Routine 09/25/2024 3:34 PM EDT 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 us External Provider PA-C LABORATORY Final Res ult * (ABNORMAL) GLUTAMIC AC DECARBOXYLASE AB (02/13/2025) Glutamic Acid Decarboxylase Ab 0.0(A) 0.0 - 5.0 IU/mL [facility] Comment:Actual Result <5.0 Blood BLOOD SPECIMEN / Unknown 02/13/2025 Jessi Comer APRN.CNP LABORATORY Edited Result - Final [address] [address] * (ABNORMAL) HEMOGLOBIN A1C (POC) (10/26/2024 12:16 PM EDT) Hemoglobin A1C (POCT) 12.0(A) 4.3 - 5.6 % [facility] Comment: Location:[facility], [address] [place] [address], [address] Point of care (POC) Hemoglobin A1c (HGBA1C) testing is intended to assess glucose control and provide a management tool for patients known to have diabetes and their healthcare providers. Target HGBA1C levels may depend on specific clinical circumstances. POC HGBA1C is not intended for use as a diagnostic or screening test; laboratory-based testing should be used for diagnostic purposes. The following information is supplemental and may not be applicable to specific diabetes management situations: The POC device certified nurse provides a normal range of 4.2% to 6.5% for the HGBA1C POC test. However, the [place] Diabetes Association guidelines indicate that patients with HGBA1C in the range of 5.7% to 6.4% are at increased risk for development of diabetes and that intervention by lifestyle modification may be beneficial. A HGBA1C level greater than or equal to 6.5% is considered diagnostic of diabetes, pending confirmatory testing. Use of HGBA1C testing to evaluate glucose control may not be appropriate for patients with hemoglobin variants or other conditions (e.g. anemia) that alter red blood cell lifespan. 10/26/2024 12:1 6 PM EDT us Jessi Comer ELECTRICAL DEVELOPMENT ENGINEER.KALANI POC TESTING Final Result [facility] POINT OF CARE [address] * (ABNORMAL) ALBUMIN/CREATININE RATIO, URINE (09/25/2024 3:34 PM EDT) Creatinine, Ur Random (UCRR) 19.1(L) 20.0 - 300.0 mg/dL 09/26/2024 5:17 AM EDT [facility] Albumin, Urine Random 20.2 mg/L 09/26/2024 5:17 AM EDT [facility] Albumin/Creat Ratio 106(H) <30 mg/g 09/26/2024 5:17 AM EDT [facility] Comment: Adult Male and Female Nephrotic Criteria: <30 mg/g is considered normal to mildly increased 30-300 mg/g is considered moderately increased >300 mg/g is considered severely increased KDIGO. (2013). KDIGO 2012 Clinical Practice Guideline for the Evaluation and Management of Chronic Kidney Disease. Official Journal of the International Society of Nephrology, 3(1), 1-150. Urine URINE SPECIMEN / Unknown Non Blood / Unknown 09/25/2024 3:34 PM EDT 09/25/2024 3:34 PM EDT us Jessi Souleymane ELECTRICAL DEVELOPMENT ENGINEER.CONSULTING SERVICES MANAGER LABORATORY Final Result [facility] [address] [facility] [address] [address], * (ABNORMAL) LIPID PANEL, NONFASTING (09/25/2024 3:20 PM EDT) Total Cholesterol, Nonfasting 144 <200 mg/dL 09/26/2024 6:29 AM T [facility] Comment: <200 mg/dL, Desirable 200-239 mg/dL, Borderline high >239 mg/dL, High Triglycerides, Nonfasting 168(H) <150 mg/dL 09/26/2024 6:29 AM T [facility] Comment: <150 mg/dL, Normal 150-199 mg/dL, Borderline high 200-499 mg/dL, High >499 mg/dL, Very high HDL Cholesterol, Nonfasting 51 >39 mg/dL 09/26/2024 6:29 AM T [facility] Comment: 40-59 mg/dL, Acceptable >59 mg/dL, High: Negative risk factor for coronary heart disease <40 mg/dL, Low: Positive risk factor for coronary heart disease LDL Cholesterol Calculated, Nonfasting 59 <100 mg/dL 09/26/2024 6:29 AM [facility] Comment: <100 mg/dL, Optimal 100-129 mg/dL, Near optimal/above optimal 130-159 mg/dL, Borderline high 160-189 mg/dL, High >189 mg/dL, Very high Secondary prevention optimal LDL Cholesterol levels are recommended to be < 70 mg/dL Non HDL Cholesterol, Nonfasting 93 <130 mg/dL 09/26/2024 6:29 AM T [facility] Comment: <130 mg/dL, Optimal 130-159 mg/dL, Near optimal/above optimal 160-189 mg/dL, Borderline high 190-219 mg/dL, High >219 mg/dL, Very high Secondary prevention optimal non HDL Cholesterol levels are recommended to be <100 mg/dL VLDL Cholesterol, Nonfasting 34(H) <30 mg/dL 09/26/2024 6:29 AM [facility] Total Chol/HDL Ratio, Nonfasting 2.82 <5.10 mg/dL 09/26/2024 6:29 AM EDT [facility] LDL/HDL Ratio, Nonfasting 1.16 <2.54 mg/dL 09/26/2024 6:29 AM EDT [facility] Comment: Reference: 1. National Cholesterol Education Program ATP III Guideline At-A-Glance Quick Desk Reference: National Heart, Lung, and Blood [place]. National Institutes of Health. 2001: NIH Publication No. 01-3305. 2. An International Atherosclerosis Society position paper: global recommendations for the management of dyslipidemia: executive summary, Atherosclerosis. 2014: 232(2):410-413. Blood BLOOD SPECIMEN / Unknown Venipuncture / Unknown 09/25/2024 3:20 PM EDT 09/25/2024 3:21 PM EDT us Jessi Comer ELECTRICAL DEVELOPMENT ENGINEER.CONSULTING SERVICES MANAGER LABORATORY Final Result [facility] [address] [address], from Last 3 Months or Most Recently Relevant to Health Maintenance Insurance MEDICARE Care Teams Top Dyeing Machine Loader Relationship Specialty Start Date End Date Arnold Castro DO [address] [facility] [address] [place] [address] PCP - General Internal Medicine 03/30/18 Anatoly Anne APRN.CONSULTING SERVICES MANAGER [address] [id number] Referring Internal Medicine 04/26/24
--- OUTSIDE RECORDS SUMMARY | 2025-04-02 11:41 | XMS_ITS ---
Author Organization [facility] Address [address] [place] [address] Care Team Providers Care Hand Packer/Packager Name Role Phone Arnold Castro DO Primary Care Provider Arnold Castro DO Unavailable [phone] Patrick Beard MD Unavailable [phone] Andrey Grullon MD Unavailable Saúl Davis MD Unavailable [phone] Chronic Care Management (CCM) Status:Enrolled (Active) Start date:11/26/2022 Enrollment date:11/26/2022 Overview 09/22/23, 10:06 AM - Bailey Monroy LPN- Patient gives verbal consent to be enrolled in CCM Program and understands there could be a bill for this service. Case Team Name Relationship Phone Alejandrina Santamaria LPN(Responsible Staff) Clinical Advocate [phone] Continued Care and Services Coordination
--- OUTSIDE RECORDS SUMMARY | 2025-04-02 11:41 | XMS_ITS | Clinical Summary ---
Author Organization [employer] tem Address [id number] [address] [place] [address] Care Team Providers Care Music Theory Professor Name Role Phone Unavailable Primary Care Provider Unavailabl e Medications clopidogreL (PLAVIX) 75 mg tablet Take 1 tablet (75 mg total) by mouth in the morning. Active lipase-protease -amylase (CREON) 24,000-76,000 -120,000 unit capsule,delayed release(DR/EC) Take 2 capsules (48,000 units of lipase total) by mouth in the morning and 2 capsules (48,000 units of lipase total) at noon and 2 capsules (48,000 units of lipase total) in the evening. Take with meals. Active nitroglycerin (NITROSTAT) 0.[address] 1 tablet (0.4 mg total) under the tongue every 5 (five) minutes as needed for chest pain. Active tamsulosin (FLOMAX) 0.4 mg capsule Take 1 capsule (0.4 mg total) by mouth in the morning. Active atorvastatin (LIPITOR) 80 mg tablet Take 1 tablet (80 mg total) by mouth in the morning. Active insulin pump cart,cont inf,BT (OMNIPOD DASH PODS, GEN 4,) cartridge Inject under the skin. Basal: 0.5 u/hr Carb: 0.5 u per 10 carbs Correction: unclear Active PARoxetine (PAXIL) 30 mg tablet Take 1 tablet (30 mg total) by mouth every morning. Active sacubitriL-vals alyssa (ENTRESTO) 24-26 mg tablet Take 1 tablet by mouth in the morning and 1 tablet before bedtime. 60 tablet 2 01/24/2024 Active metoprolol succinate XL (TOPROL XL) 25 mg 24 hr tablet Take 0.5 tablets (12.5 mg total) by mouth in the morning and 0.5 tablets (12.5 mg total) before bedtime. 30 tablet 2 01/24/2024 Active spironolactone (ALDACTONE) 25 mg tablet Take 1 tablet (25 mg total) by mouth in the morning. 30 tablet 2 01/24/2024 Active Active Problems Problem Noted Date Diagnosed Date NSTEMI (non-ST elevated myocardial infarction) 0 01/21/2024 Left radial fracture 01/21/2024 Pneumonia of both lungs due to infectious organi sm 01/21/2024 Sepsis without acute organ dysfunction Traumatic rhabdomyolysis 01/21/2024 Type 1 diabetes mellitus 01/21/2024 Anemia of chronic disease 01/21/2024 ASCVD (arteriosclerotic cardiovascular disease) 01/21/2024 Elevated d-dimer 01/21/2024 Hypomagnesemia 01/21/2024 Essential hypertension 01/21/2024 Dyslipidemia 01/21/2024 Pancreatic insufficiency 01/21/2024 Immunizations No known immunizations Family History Relation Name Status Comments Brother cancer Father old age Mother (Age 99) old age Sister acute leukemia Social History Tobacco Use Types Packs/Day Years Used Date Smoking Tobacco: Former Cigarettes Q uit: 04/11/2023 Smokeless Tobacco: Never Tobacco Cessation:Counseling Given: No Alcohol Use Standard Drinks/Week Comments Yes 16 (1 standard drink = 0.6 oz pu re alcohol) [facility] Utilities Answer Date Recorded In the past 12 months has [employer], gas, oil, or water company threatened to [...] week 01/21/2024 How often do you attend [facility] or baptist services? More than 4 times per year 01/21/2024 Do you belong to any clubs o r organizations such as anabaptism groups, unions, fraternal or athletic groups, or [...] Answer Date Recorded Total Score 3 01/21/2024 [facility] - Occupational Stress [...] Recorded Do you need help finding a [facility] career center and/or a training program? No [...] Orientation Straight 01/21/2024 11 :37 AM EDT Last Filed Vital Signs Vital Sign Reading Time Taken Comments Blood Pressure 132/69 01/24/2024 3:00 PM EDT Pulse 53 01/24/2024 3:00 PM EDT Temperature 36.3 C (97.4 F) 01/24/2024 3:00 PM EDT Respiratory Rate 19 01/24/2024 3:00 PM EDT Oxygen Saturation 94% 01/24/2024 3:00 PM EDT Inhaled Oxygen Concentration - - Weight 67.7 kg (149 lb 4 oz) 01/24/2024 1:25 AM EDT Height 180.3 cm (5' 11 ) 01/21/2024 10:43 AM EDT Body Mass Index 20.82 01/21/2024 10:43 AM EDT Plan of Treatment Health Maintenance Due Date Last Done Comments Fall Risk Screening 2002 Depression Screening 01/20/2025 01/21/2024 Tobacco Screening 01/22/2025 01/23/2024 COVID-19 Vaccine (2024-2 6 season) 2025 05/18/2023, 05/26/2022, 08/22/2020, Additional history exists Influenza Vaccine 03/12/2025 05/19/2023, , 04/29/2021, Additional history exists DTaP,Tdap and Td Vaccines (3 - Td or Tdap) 03/18/2028 03/18/2018, 03/18/2015 Zoster (Shingles) Vaccine Completed 2022, 05/05/2021, 05/02/2021 Medical Devices Not on file Insurance MEDICARE [facility] Advance Directives * Full Code (Latest Code Status on File) Date Activated Date Inactivated Comments 01/21/2024 10:15 AM 01/24/2024 8:16 PM
--- OUTSIDE RECORDS SUMMARY | 2025-04-02 11:41 | XMS_ITS | Encounter Summary ---
Author Organization [facility] Address [address] [place] [address] Care Team Providers Care Draw String Knotter Name Role Phone Arnold Castro DO Primary Care Provider Anatoly Anne APRN.SCHOOL PROGRAM DIRECTOR Unavailable [phone] Source Comments In the event this information is protected by the Federal Confidentiality of Alcohol and Drug AbusePatient Records regulations: The Federal rules restrict any use of the information to criminally investigate or prosecute any alcohol or drug abuse patient.[facility] Encounter Details Date Type Department Care Team (Late st Contact Info) Description 03/30/2025 Patient [facility] -[address] [place] [id number] Mariela Robertson RPh At your next appointment, choose [facility]. Social History Tobacco Use Types Packs/Day Years [...] is lower risk 8 07/06/2024 Data from: https://www.neighborhoodatlas.medicine.[facility].edu/. Last address used for calculation [address] [place] [address] 07/06/2024 Sex and Gender Information Value Date Recorded Sex Assigned at Not on file Legal Sex Male 9:09 AM EDT Gender Identity Not on file Sexual Orientation Not on file documented as of this encounter Plan of Treatment Upcoming Encounters Date Type Department Care Team (Late st Contact Info) Description 04/09/2025 2:00 PM EDT Office Visit Endocrinology [address] [facility] [place] [address] Jessi Comer, DIRECTOR OF PLANNING.SCHOOL PROGRAM DIRECTOR [address] [place] [address] *R/S from 01/25 documented as of this encounter Visit Diagnoses Not on filedocumented in this encounter Care Teams Draw String Knotter Relationship Specialty Start Date End Date Arnold Castro DO [address] [place] [address] PCP - General Internal Medicine 03/30/18 Anatoly Anne APRN.SCHOOL PROGRAM DIRECTOR [address] [place] [address] Referring Internal Medicine 04/26/24 documented as of this encounter
--- OUTSIDE RECORDS SUMMARY | 2025-04-02 11:41 | XMS_ITS | Clinical Summary ---
Author Organization [facility] Address [address] [place] [address] Care Team Providers Care Audit Intern Name Role Phone Patrick Beard MD Unavailable Arnold Castro MD Primary Care Provider [phone] Allergies No known active allergies Medications acetaminophen (Tylenol) 500 mg tablet 500 mg. 08/31/2023 Active spironolactone (Aldactone) 25 mg tablet Take 25 mg by mouth in the morning. 01/24/2024 Active lisinopril 2.5 mg tablet Take 2.5 mg by mouth in the morning. 03/27/2024 Active Jardiance 10 mg Take 10 mg by mouth 1 (one) time each day. Active atorvastatin (Lipitor) 80 mg tablet Take 80 mg by mouth in the morning. 02/28/2024 Active insulin glargine (Lantus) 100 unit/mL (3 mL) injection pen 8 Units. 02/21/2023 Activ e nitroglycerin (Nitrostat) 0.[address] 0.4 mg under the tongue every 5 (five) minutes if needed. 05/07/2023 Active lipase-protease -amylase (Creon) 24,000-76,000 -120,000 unit capsule Take 2 capsules by mouth with breakfast, with lunch, and with evening meal. 05/02/2018 Active sucralfate (Carafate) 100 mg/mL suspension Take 1 g by mouth every 6 (six) hours. 01/07/2022 Active pantoprazole (ProtoNix) 40 mg EC tablet Take 40 mg by mouth before breakfast. 01/07/2022 Active metoprolol succinate XL (Toprol-XL) 25 mg 24 hr tablet Take 25 mg by mouth in the morning. 01/24/2024 Active lutein 10 mg tablet Take 1 tablet by mouth in the morning. Active omeprazole OTC (PriLOSEC OTC) 20 mg EC tabletIndicatio ns:Gastrointest inal ulcer Take 1 tablet (20 mg) by mouth two times daily. Do not crush, chew, or split. 60 tablet 11 04/05/2024 04/05/20 Active Active Problems Problem Noted Date Diagnosed Date Abnormal electrocardiography 04/04/2024 Diabetes mellitus 04/04/2024 Acute GI bleeding 04/04/2024 Postoperative anemia 04/04/2024 Barretts esophagus 04/04/2024 Closed intertrochanteric fracture of right hip 0 04/04/2024 Fracture of C5 vertebra, closed 04/04/2024 Fracture of cervical spinous process 04/04/2024 Anxiety and depression 04/04/2024 Stomach ulcer 04/04/2024 Helicobacter pylori (H. pylori) 04/04/2024 History of pancreatectomy 04/04/2024 Impaired mobility and activities of daily living 04/04/2024 Iron deficiency 04/04/2024 Melena 04/04/2024 Mild left ventricular systolic dysfunction (LVSD ) 04/04/2024 Nonsustained monomorphic ventricular tachycardia 04/04/2024 Osteoporosis 04/04/2024 Protein-calorie malnutrition, mild 04/04/2024 S/P PTCA (percutaneous transluminal coronary ang ioplasty) 04/04/2024 Closed lumbar vertebral fracture 04/04/2024 Left carpal tunnel syndrome 02/28/2024 Anemia of chronic disease 01/21/2024 ASCVD (arteriosclerotic cardiovascular disease) 01/21/2024 Dyslipidemia 01/21/2024 Elevated d-dimer 01/21/2024 Hypomagnesemia 01/21/2024 Left radial fracture 01/21/2024 Pneumonia of both lungs due to infectious organi sm 01/21/2024 Sepsis without acute organ dysfunction Traumatic rhabdomyolysis 01/21/2024 Closed nondisplaced fracture of fourth cervical vertebra with routine healing 09/09/2023 Duodenal ulcer 09/09/2023 H pylori ulcer 09/07/2023 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 He will follow up with primary Cardiology next week Arthralgia of hip 05/26/2023 Recent fracture of hip 05/26/2023 Overview (04/04/2024): 04/28 intertroch right hip - ORIF Abnormal stress test 05/25/2023 Diabetes mellitus type II, non insulin dependent 05/25/2023 Overview (04/04/2024): Last Assessment & Plan: On ARB/statin Essential hypertension 05/25/2023 Overview (04/04/2024): Last Assessment & Plan: Optimal in office Fractured hip 05/25/2023 Non-ST elevation (NSTEMI) myocardial infarction 05/25/2023 Hip fracture due to osteoporosis, sequela 2022 Need for immunization against influenza 05/19/20 23 Type 1 diabetes mellitus wit h hyperosmolarity without nonketotic hyperglycemic hyperosmolar coma 05/02/[address] 05/02/2023 Sepsis due to Escherichia co li without acute organ dysfunction 05/02/2023 E coli infection 02/19/2023 Gram negative sepsis 02/19/2023 Leukemoid reaction 02/19/2023 Pyelonephritis 02/19/2023 Type 1 diabetes mellitus 02/16/2023 Sepsis due to urinary tract infection 02/16/2023 Current moderate episode of major 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 02/05/2023 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 Incidental troponin elevations Echo EF 40-45% Cath: two-vessel disease; ef 40% anterior hypokinesis Elective PCI: Jul LAD: unsuccessful attempt - [employer] oDiag PCI/Bovill 3.5 x 18mm Daily activity < 4 METs IPMN (intraductal papillary mucinous neoplasm) 1 08/24/2017 Overview (04/04/2024): Added automatically from request for surgery [id number] Smoker 2018 Overview (04/04/2024): Black and milds occasional Immunizations Immunization Administration Dates Next Due Influenza, High Dose Seasona l, Preservative Free 04/29/2022,04/29/2021,03/03/2017 Influenza, Seasonal, Quadriv alent, Adjuvanted 05/19/2023 Influenza, trivalent, adjuvanted 04/24/2020,03/13,2018 Moderna 12 YR UP Vaccine BiValent Booster 2022,08/22/2020,07/25/2020 Pneumococcal Conjugate PCV 13 12/26/2019 Pneumococcal Polysaccharide PPV23 12/25/2015 RSV, Adult, Recombinant 05/18/2023 Td (adult), 5 Lf tetanus tox oid, preservative free, adsorbed 03/18/2018 Tdap 03/18/2015 Zoster, Recombinant 05/18/2023,05/02/2021 Zoster, live 05/05/2021 Social History Tobacco Use Types Packs/Day Years Used Date Smoking Tobacco: Former Cigarettes Smokeless Tobacco: Former Tobacco Cessation:Counseling Given: Not Answered Alcohol Use Standard Drinks/Week Comments Yes 0 (1 standard drink = 0.6 oz pur e alcohol) occ Humiliation, Afraid, Rape, and Kick questionnair e Answer Date Recorded Within the last year, have y ou been afraid of your partner or ex-partner? No 04/05/2024 Within the last year, have y ou been humiliated or emotionally abused in other ways by your partner or ex-partner? No Within the last year, have y ou been kicked, hit, slapped, or otherwise physically hurt by your partner or ex-partner? No 04/05/2024 Within the last year, have y ou been raped or forced to have any kind of sexual activity by your partner or ex-partner? No 04/05/2024 PHQ-2 Answer Date Recorded Patient Health Questionnaire-2 Score 0 04/05/2024 Sex and Gender Information Value Date Recorded Sex Assigned at Male 04/05/2024 10:47 AM EDT Legal Sex Male 2:49 PM EDT Gender Identity Male 04/05/2024 10:47 AM EDT Sexual Orientation Don't know 04/05/2024 10 :47 AM EDT Last Filed Vital Signs Vital Sign Reading Time Taken Comments Blood Pressure 127/61 04/05/2024 11:02 AM EDT Pulse 52 04/05/2024 11:02 AM EDT Temperature - - Respiratory Rate - - Oxygen Saturation - - Inhaled Oxygen Concentration - - Weight 66.5 kg (146 lb 9.6 oz) 04/05/2024 11:02 AM EDT Height 180.3 cm (5' 11 ) 04/05/2024 11:02 AM EDT Body Mass Index 20.45 04/05/2024 11:02 AM EDT Plan of Treatment Health Maintenance Due Date Last Done Comments Medicare Annual Wellness (AWV) 1935 HIB Vaccines (1 of 1 - Risk 1-dose series) 06[birth year]22/1936 Meningococcal Vaccine (1 - Risk 2-dose series) 1939 Diabetes: Retinopathy Screening 1947 Meningococcal B Vaccine (1 of 5 - Increased Risk) 1947 Diabetes: Urine Protein Screening 1956 Diabetes: Hemoglobin A1C 04/22/2024 024, 02/18/2023, 02/16/2023, Additional history exists COVID-19 Vaccine ( season) 2025 05/18/2023, 05/18/2023, 05/26/2022, Additional history exists Influenza Vaccine (#1) 2025 , 05/19/2023, 04/29/2022, Additional history exists Depression Screening 04/05/2025 04/05/2024 Fall Risk Screening 04/05/2025 04/05/2024 Adult Tetanus 03/18/2028 03/18/2018, 03/18/2015 Pneumococcal Vaccine: 50+ Years Completed 12/26/2019, 12/25/2015 Zoster Vaccines Completed 05/18/2023, 04/12, 05/02/2021 HPV Vaccines Aged Out No longer eligi ble based on patient's age to complete this topic IPV Vaccines Aged Out No longer eligi ble based on patient's age to complete this topic Rotavirus Vaccines Aged Out No longer eligible based on patient's age to complete this topic Insurance MEDICARE [employer]IC [employer] Care Teams Audit Intern Relationship Specialty Start Date End Date Arnold Castro MD [address] [place] [address] PCP - General Internal Medicine 05/04/24 [facility] Beard [facility] [address] [facility] [address] [place] [id number] Gastroenterology 04/05/24
--- OUTSIDE RECORDS SUMMARY | 2025-04-02 11:41 | XMS_ITS | Patient Health Record ---
Author Organization [facility] Address [address] [place] [address] Care Team Providers Care Rock Wool Insulator Name Role Phone El Johnson Primary Care Provider Myriam Byrd Unavailable [phone] Reason For Referral No Information Medications Medication SIG (Take, Route, Fr equency, Duration) Notes Start Date End Date Status Naftin 1% 1 eliane applied topica lly to affected areas QAM for 30 day(s) 10/01/2011 Active econazole topical 1% 1 eliane applied topic ally once daily for 30 day(s) 10/02/2011 Active Aluvea 40% 1 eliane applied topica lly to affected area QHS for 30 day(s) 10/01/2011 Active Problems Problem Type SNOMED Code ICD Code Onset Dates Problem Status W/U Status Risk Notes Problem Tinea pedis (7133189) Tinea pedis (110.4) Active confirmed Problem Onychomycosis (352681541) Onychomycosis (110.1) Active confirmed Plan Of Treatment No Information Insurance Providers Payer Name Payer Address Payer Phone Subscriber Number Group Number Insured Name Patient Relationship to Insured Coverage Start Date Coverage End Date [place] [address] [address] [place] [phone] [id number] Ifeanyi Roche Self - patient is the insured Inactive ins do not add [place] [employer] [address] [place] [address] [phone] [id number] Ifeanyi Roche Self - patient is the insured Medical (General) History Medical History History ICD Code Denies history of skin cancer
--- OUTSIDE RECORDS SUMMARY | 2025-04-02 11:41 | XMS_ITS | Encounter Summary ---
Author Organization Address [address] [place] [address] Care Team Providers Care Clinical Specialist Vascular Name Role Phone Arnold Castro DO Primary Care Provider Anatoly Anne APRN.ENVIRONMENTAL REMEDIATION CONSULTANT Unavailable [phone] Source Comments In the event this information is protected by the Federal Confidentiality of Alcohol and Drug AbusePatient Records regulations: The Federal rules restrict any use of the information to criminally investigate or prosecute any alcohol or drug abuse patient. Encounter Details Date Type Department Care Team (Late st Contact Info) Description 10/11/2024 Get Medical Advice Endocrinology [address] [facility] [place] [address] Jessi Comer APRN.ENVIRONMENTAL REMEDIATION CONSULTANT [address] [facility] [place] [address] Dexcom supplies Social History Tobacco Use Types Packs/Day Years [...] is lower risk 8 07/06/2024 Data from: https://www.neighborhoodatlas.[facility]/. Last address used for calculation [address] [facility] 07/06/2024 Sex and Gender Information Value Date Recorded Sex Assigned at Not on file Legal Sex Male 9:09 AM EDT Gender Identity Not on file Sexual Orientation Not on file documented as of this encounter Plan of Treatment Upcoming Encounters Date Type Department Care Team (Late st Contact Info) Description 04/09/2025 2:00 PM EDT Office Visit Endocrinology [address] [place] [address] Jessi Comer, AMADA.ENVIRONMENTAL REMEDIATION CONSULTANT [address] [facility] [place] [address] *R/S from 01/25 documented as of this encounter Visit Diagnoses Not on filedocumented in this encounter Care Teams Clinical Specialist Vascular Relationship Specialty Start Date End Date Arnold Castro DO [address] [place] [address] PCP - General Internal Medicine 03/30/18 Anatoly Anne APRN.ENVIRONMENTAL REMEDIATION CONSULTANT [address] [place] [address] Referring Internal Medicine 04/26/24 documented as of this encounter
--- OUTSIDE RECORDS SUMMARY | 2025-04-02 11:41 | XMS_ITS | Encounter Summary ---
Author Organization [facility] Address [address] [place] [address] Care Team Providers Care Kinesiotherapist Name Role Phone Arnold Castro DO Primary Care Provider Anatoly Anne APRN.AUTOMOTIVE FUEL SYSTEMS CONVERTER Unavailable [phone] Source Comments In the event this information is protected by the Federal Confidentiality of Alcohol and Drug AbusePatient Records regulations: The Federal rules restrict any use of the information to criminally investigate or prosecute any alcohol or drug abuse patient.[facility] Encounter Details Date Type Department Care Team (Late st Contact Info) Description 10/04/2024 Patient Msg Diabetic Education [facility] [address] [place] [address] Gaye Mata, RN Omnipod 5 Social History Tobacco Use Types Packs/Day Years [...] is lower risk 8 07/06/2024 Data from: https://www.neighborhoodatlas.medicine.[facility].edu/. Last address used for calculation [address] [place] [address] 07/06/2024 Sex and Gender Information Value Date Recorded Sex Assigned at Not on file Legal Sex Male 9:09 AM EDT Gender Identity Not on file Sexual Orientation Not on file documented as of this encounter Plan of Treatment Upcoming Encounters Date Type Department Care Team (Late st Contact Info) Description 04/09/2025 2:00 PM EDT Office Visit Endocrinology [address] [place] [address] Jessi Comer, MILK DRIVER.AUTOMOTIVE FUEL SYSTEMS CONVERTER [address] [facility] [place] [address] *R/S from 01/25 documented as of this encounter Visit Diagnoses Not on filedocumented in this encounter Care Teams Kinesiotherapist Relationship Specialty Start Date End Date Arnold Castro DO [address] [place] [address] PCP - General Internal Medicine 03/30/18 Anatoly Anne APRN.AUTOMOTIVE FUEL SYSTEMS CONVERTER [address] [place] [address] Referring Internal Medicine 04/26/24 documented as of this encounter
--- OUTSIDE RECORDS SUMMARY | 2025-04-02 11:41 | XMS_ITS | Patient Health Record ---
Author Organization [facility] [place] Address [address] [place] [address] Care Team Providers Care Plant Technician/Control Room Operator Name Role Phone Arnold Castro DO Primary Care Provider Unavail able Allergies No Known Allergies Reason For Referral No Information Medications Medication SIG (Take, Route, Frequency, Duration) Notes Start Date End Date Status Aspirin Low Dose 81 MG TAKE 1 TABLET BY MOUTH EVERY DAY FOR 30 DAYS Oral; Duration: 30 Days Active NovoLOG 100 UNIT/ML ADMINISTER PER PUMP (MAX DAILY 60 UNITS) Injection; Duration: 90 Days Active Acetaminophen Extra Strength 500 MG TAKE 1 TABLET BY MOUTH EVERY 6 HOURS Oral; Duration: 22 Days Active Nitroglycerin 0.4 MG Sublingual; Duratio n: 30 Days Active Cyclobenzaprine HCl 5 MG Oral; Duration: 10 Days Active Tamsulosin HCl 0.4 MG 1 capsule Oral Onc e a day; Duration: 30 Days Active [employer]S Vitamin C 500 MG Oral; Duration: 30 Days Active PARoxetine HCl 30 MG Oral; Duration: 90 Days Active Creon 16155-37840 UNIT Oral; Duration: 30 Days Active Oyster Shell Calcium w/D 500-5 MG-MCG TAKE 1 TABLET BY MOUTH 3 TIMES A DAY WITH MEALS FOR 30 DAYS Oral; Duration: 30 Days Active Atorvastatin Calcium 80 MG Oral; Duration: 30 Days Active Omnipod DASH Pods (Gen 4) - ; Duration: 90 Days Active Lantus SoloStar 100 UNIT/ML PLEASE SEE A TTACHED FOR DETAILED DIRECTIONS Subcutaneous; Duration: 30 Days Active HYDROcodone-Acetaminophen 5-325 MG Oral; Duration: 7 Days Activ e Vitamin D3 Active Ferrous Sulfate 324 (65 Fe) MG TAKE 1 TABLET BY MOUTH EVERY DAY FOR 30 DAYS Oral; Duration: 30 Days Active Valsartan 160 MG Oral; Duration: 30 Days Active Multiple Vitamin Act tiffany Social History Tobacco Use: Social History Observation Description Date Details (start date - stop date) Current Smoker NA - NA Tobacco Use/Smoking Question Answer Notes Patient is a current smoker Alcohol Screen (Audit-C) Question Answer Notes Did you have a drink contain ing alcohol in the past year? Yes How often did you have a dri nk containing alcohol in the past year? 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) Active confirmed Problem Obstructive uropathy (5894656) Other obstructive and reflux uropathy (N13.8) Active confirmed Problem Hypoglycemia (894374883) Hypoglycemia (E16.2) Active confirmed Problem Lower urinary tract symptoms due to benign prostatic hypertrophy (58626503701789) Benign prostatic hyperplasia with lower urinary tract symptoms (N40.1) Active confirmed Plan Of Treatment No Information Insurance Providers Payer Name Payer Address Payer Phone Subscriber Number Group Number Insured Name Patient Relationship to Insured Coverage Start Date Coverage End Date [place]IC[place] [address] [place] [address] [phone] [id number] NabilmichelleManolo fitzgerald Self - patient is the insured 2 [facility] [address] [address] [place], [place] [id number] NabilmichelleManolo fitzgerald Self - patient is the insured 8 Medical (General) History Medical History History ICD Code Diabetes 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
--- OUTSIDE RECORDS SUMMARY | 2025-04-02 11:48 | XMS_ITS | CCD ---
Author Organization [facility] Care Team Providers Care Electrical Technology Instructor Name Role Phone Marie Castro Primary Care Provider DELON CONN Admitting Unavailable DELON CONN Attending Unavailable KINGS FRANCIS Consulting Unavailable MARIE CASTRO Primary Care Unavailable JOSE A, DR FRANCO Primary Care Unavailable KESHA DOBSON Admitting Unavailable KESHA DOBSON Attending Unavailable KESHA DOBSON Consulting Unavailable ZHANG, ROLA Consulting Unavailable ILEANA, DR SALAZAR Admitting Unavailable ILEANA, DR SALAZAR Attending Unavailable MISC, DR CHANEY Primary Care Unavailable ILEANA, DR SALAZAR Consulting Unavailable VASSIENNA, DR SALAZAR Admitting Unavailable ILEANA, DR SALAZAR Attending Unavailable BALL, DR FRANCO Primary Care Unavailable ILEANA, DR SALAZAR Consulting Unavailable DO Marie Castro Primary Care Provider JO Rivas Emergency Provider DO Sushant Cordon Admit Provider DO Sushant Cordon Attending Provider [phone] MD Ashwini Conrad Other Provider MD Chuck Velasco Other Provider [phone] MD Anat Perez Other Provider MD Humberto Diaz Attending Provider MD Tru rBiceno Other Provider MD Fredi Medrano Admit Provider [phone] MD Fredi Medrano Attending Provider [phone] KARIN Rios Other Provider Unavailable KARIN Velazquez Other Provider Unavailable KARIN Angulo Other Provider Unavailable David RN Buffy Other Provider Unavailable KARIN Bentley Other Provider Unavailable KARIN Henry Other Provider Unavailable MD Chris Holm Other Provider AMADA Zavala M Other Provider DO Samantha Wilson Other Provider MD Eric Major Other Provider DO Sushant Cordon Other Provider MD Audi Gaming Other Provider MD Cecily Keen Other Provider AMADA Wright Other Provider MD Daniel Reyes Other Provider [phone] MD Roberto Sevilla Other Provider MD Humberto Diaz Other Provider MD Marzena Otto Other Provider DO Gray Gilliam Other Provider MD Mc Cornejo Other Provider MD Raymundo Angeles Other Provider Parisa THREAD CHECKER-C Marga Westfall Other Provider [phone] MD Indra Guillory Other Provider MD David Fonseca Other Provider MD Hai Aguilera Other Provider MD Esau Corrales Other Provider DO Leda Urena Other Provider DO Guevara Mills Other Provider DO Jose Roberto Felder Other Provider [phone] AMADA Marte Other Provider DO Warren Gross Other Provider MD Nayeli Jimenez Other Provider AMADA Wolff Other Provider AMADA Pimentel Other Provider MD Vidya Robert Other Provider MD Howard Burrell Other Provider DO Jeevan John Other Provider [phone] AMADA Murdock Other Provider [phone] DO Mauricio Drake Other Provider KARIN Morillo Other Provider Unavailable Ashwini Conrad Unavailable Marie Castro DO Primary Care Provider DO Marie Castro Primary Care Provider JO Rivas Emergency Provider DO Sushant Cordon Admit Provider MD Ashwini Conrad R Other Provider MD Chuck Velasco Other Provider MD Anat Perez Other Provider MD Humberto Diaz Attending Provider [phone] MD Tru Briceno Other Provider MD [...] Provider MD Raymundo Angeles Other Provider ZOILA Mccauley-C Marga Westfall Other Provider MD Indra Guillory Other Provider MD David Fonseca Other Provider MD Hai Aguilera Other Provider MD Esau Corrales Other Provider DO Leda Urena Other Provider DO Guevara Mills Other Provider DO Jose Roberto Felder Other Provider AMADA Marte Other Provider DO Warren Gross Other Provider MD Nayeli Jimenez Other Provider AMADA Wolff Other Provider AMADA Pimentel Other Provider [phone] MD Vidya Robert Other Provider MD Howard Burrell Other Provider DO Jeevan John Other Provider AMADA Murdock Other Provider [phone] DO Mauricio Drake Other Provider KARIN Morillo Other Provider Unavailable MD Ashwini Conrad Attending Provider PROVIDER, UNKNOWN Attending Unavailable PROVIDER, UNKNOWN Admitting Unavailable MD Chuck Velasco Other Provider DO Federico Davis Attending Provider MD Herminio Lakhani Attending Provider Anat Perez Unavailable DO Marie Castro Primary Care Provider DO Federico Davis Attending Provider [phone] MD Herminio Lakhani Attending Provider MD Audi Gaming Admit Provider MD Manfred Imdanielle Other Provider MD Beka Roland Other Provider MD Tru Briceno Other Provider MD Vidya Robert Attending Provider [phone] MD Audi Gaming Attending Provider MARYANN Flores Attending Provider DO Marie Castro Primary Care Provider GOVIND DAVIS Attending Unavailable MARIE CASTRO Primary Care Unavailab GOVIND Sarmiento Referring Unavailable SAMMY WOLFF Attending Unavailable GOVIND DAVIS Referring Unavailable MARIE CASTRO Primary Care Unavailab SAMMY Sosa Attending Unavailable SAMMY WOLFF Referring Unavailable MARIE CASTRO Primary Care Unavailab le DO Marie Castro Primary Care Provider Provider, None Primary Care Unavailable Arian Balderas Admitting Unavailable Arian Balderas Attending Unavailable Provider, None Primary Care Unavailable Arian Balderas Admitting Unavailable Arian Balderas Attending Unavailable Provider, None Primary Care Unavailable Arian Balderas Admitting Unavailable Arian Balderas Attending Unavailable PERCY NG Admitting Unavailab PERCY Louis Attending Unavailab KEAGAN Yee Referring Unavailable GOVIND CLEMENT Consulting Unavailable JEEVAN LYNN Consulting Unavailable FATMATA BALDWIN Consulting Unavailable MAGDALENE PARMAR Referring Unavailable DO Marie Castro Primary Care Provider MD Alberto Shearer Attending Provider MD Paige Luther Emergency Provider DO Sushant Cordon Admit Provider [phone] DO Sushant Cordon Attending Provider MD Manuel Wolff Other Provider DO Warren Gross Attending Provider DO Marie Castro Primary Care Provider [phone] MD Anat Perez Attending Provider DO Warren Gross Other Provider MD Anat Perez Referring Provider MD Anat Perez Referring Provider Marie Castro DO Primary Care Provider Marie Castro DO Unavailable Patrick Beard MD Unavailable Adnrey Grullon MD Unavailable [phone] Saúl Davis MD Unavailable MD Abdulaziz Root Attending Provider PATRICK BEARD Attending Unavailable MANUEL WOLFF Referring Unavailable DO Marie Castro Primary Care Provider [phone] DO Warren Gross Attending Provider [phone] DO Marie Castro Primary Care Provider MD Anat Perez Attending Provider MD Anat Perez Referring Provider [phone] MD Abdulaziz Root Attending Provider Marie Castro DO Primary Care Provider Anat Perez MD Attending Provider Anat Perez MD Referring Provider Abdulaziz Root MD Attending Provider Ivett OGLESBY, Abdulaziz Admit Provider [phone] Marie Castro DO Primary Care Provider Cally TUBE BENDER HAND, Yuerong Unavailable Marie Castro DO Primary Care Provider Vargas Reis APRN Emergency Provider Karon OGLESBY, Jose Alfredo Admit Provider Jose Alfredo Brantley MD Attending Provider Gray Higgins MD Other Provider Sushant Cordon DO Admit Provider Sushant Cordon DO Attending Provider Stephanie Sheridan DO Other Provider Beto Russo MD Other Provider Thierno Corrales DO Other Provider Bertin Yepez DO Emergency Provider nIdra Burgess MD Admit Provider Indra Guillory MD Attending Provider Lisa Hidalgo MD Attending Provider [phone] Cally YBARRA.TUBE BENDER HAND, Yuerong Unavailable [phone] Marie Castro DO Primary Care Provider Marei Castro DO Primary Care Provider Yepez DO Bertin Han Emergency Provider Queenie Guillory MD, Indra Morrow Admit Provider Lisa Hidalgo MD Attending Provider Saúl Davis MD Unavailable [phone] Cally SILK SPOOLER.TUBE BENDER HAND, Staciaerong Unavailable MARIE CASTRO Attending Unavailable XAVICHAK, MARIE Westfall Attending Unavailable YOMI CHONG Referring Unavailable CHELSEA PETER Attending Unavailable VASCHAK, MARIE Westfall Referring Unavailable VASCHAK, MARIE Westfall Referring Unavailable VASCHAK, MARIE Westfall Attending Unavailable VASCHAK, MARIE Westfall Referring Unavailable VASCHAK, MARIE Westfall Attending Unavailable VASCHAK, MARIE Westfall Attending Unavailable VASCHAK, MARIE Westfall Referring Unavailable VASCHAK, MARIE Westfall Attending Unavailable BETO GARCIA Attending Unavailable STEPHANIE SHERIDAN Attending Unavailable MARIE CASTRO Referring Unavailable YOMI CHONG Attending Unavailable AYANA ZAVALA Attending Unavailable XAVICHAK, [facility] Care Unavailab AYANA Dudley Referring Unavailable VASCHAK, [facility] Care Unavailab le VASCHAK, [facility] Primary Care Unavailab AYANA Dudley Attending Unavailable CALLY, YUERONG Referring Unavailable AYANA ZAVALA Attending Unavailable VASCHAK, [facility] Care Unavailab le VASCHAK, [facility] Care Unavailab le VASCHAK, [facility] Primary Care Unavailab le Vaschak Marie CURTIS Primary Care Provider Anat Perez MD Other Provider Abdulaziz Root MD Attending Provider Marie Castro Primary Care Unavailable Stephanie Sheridan Unavailable Sushant Cordon Attending UnavailSushant Seo Admitting UnavailBeto Corbett Consulting Unavailable Thierno Corrales Consulting Unavailable Ileana, Marie Primary Care Unavailable Anat Perez Attending Unavailable Anat Perez Admitting Unavailable Ileana, Marie Primary Care Unavailable Abdulaziz Root Attending Unavailable Almahameed, Soufian Admitting Unavailable Vaschak, Marie Primary Care Unavailable Ana, Anat Referring Unavailable Almahameed, Soufian Admitting Unavailable Almahameed, Asadan Attending Unavailable Vaschak, Marie Primary Care Unavailable Ana, Anat Attending Unavailable Ana, Anat Admitting Unavailable Vaschak, Marie Primary Care Unavailable Almahameed, Abdulaziz Attending Unavailable Almahameed, Asadan Admitting Unavailable Vaschak, Marie Primary Care Unavailable Ana, Anat Attending Unavailable Ana, Anat Admitting Unavailable Vaschak, Marie Primary Care Unavailable Ana, Anat Attending Unavailable Ana, Anat Admitting Unavailable Ana, Anat Referring Unavailable Vaschak, Marie Primary Care Unavailable Almahameed, Abdulaziz Attending Unavailable Almahameed, Soufian Admitting Unavailable Vaschak, Marie Primary Care Unavailable Gray Higgins Consulting Unavailable Karon, Jose Alfredo Attending Unavailable Karon, Jose Alfredo Admitting Unavailable Indra Guillory Admitting Unavailab le Jamak, Marie Primary Care Unavailable Lisa Hidalgo Attending Unavailable Chela Charles Consulting Unavailable Yves Han Consulting Unavailable Chuck Velasco Consulting Queenie Perez, Anat Consulting Unavailable Ana OGLESBY, Anat Attending Provider [phone] Medications Current Medications Medication Drug Class(es) Dates Sig (Normalized) Sig (Original) [id number] 200 actuat albuterol 0.09 mg/actuat metered dose inhaler (11 sources) beta2-Adrenergic Agonist Start: 07-20-2024 End: 07-20-2025 take 2 puff(s) by inhalation every four hours for wheezing albuterol HFA (ProAir HFA) 90 mcg/act inhaler Indications: Bronchitis Inhale 2 puffs every 4 (four) hours if needed for wheezing or shortness of breath 8.5 g 07/20/2024 07/20/2025 Active amLODIPine 5 mg oral tablet (2 sources) [...] on 01/04/22 at 1500, Until Discontinued amylase [id number] unt / lipase 79297 unt / protease 60511 unt delayed release oral capsule (20 sources) Start: 08-15-2024 pancrelipase, Ymw-Ovto-Wclk, (Creon) 78142-29815 units capsule Indications: Pancreatic insufficiency (HCC) TAKE 2 CAPSULES BY MOUTH DAILY WITH MEALS AND 1 CAPSULE BY MOUTH WITH SNACKS DIRECTED 240 capsule 3 08/15/2024 Active Start: 01-25-2024 pancrelipase, Ltj-Qjbo-Dkuk, (Creon) 94639-04955 units capsule Indications: Pancreatic insufficiency (CMS/HCC) TAKE 2 CAPSULES BY MOUTH DAILY WITH MEALS AND 1 CAPSULE BY MOUTH WITH SNACKS DIRECTED 240 capsule 3 01/25/2024 Active Start: 05-07-2023 take 81515-23207 cap sules by mouth once Ovusmd-Oxwdyvdb-Cahfzou (Creon) 24,000-76,000 -120,000 unit Capsule,Delayed Release(Dr/Ec) Active 2 CAP PO 3x/Day with meals 120 May 07, 2023 12:00am Complies with drug therapy Start: 05-02-2018 End: 08-31-2024 fkyrqp-hcivcxsk-omboguh (CRE ON) 24,000-76,000 -120,000 unit cpDR Take 2 capsules by mouth three times daily with meals. and 1 with snacks (8/day) 240 capsule 5 05/02/2018 Active lipase-protease- amylase (CREON) 32789-74997 units delayed release capsule Take 12,000 Units by mouth take with snacks 0 Active aspirin 81 mg delayed release oral tablet (20 sources) Platelet Aggregation Inhibitor, Nonsteroidal Anti-inflammatory Drug Start: 05-03-2023 End: 05-07-2023 take 1 tablet by mouth once daily Aspirin 81 mg Tablet,Delayed Release (Dr/Ec) Active 81 MG PO Daily 30 May 07, 2023 12:00am Complies with drug therapy atorvastatin 40 mg oral tablet (20 sources) HMG-CoA Reductase Inhibitor Start: 03-27-2025 take 1 tablet by mouth once daily at bedtime Atorvastatin (Lipitor) 40 mg tablet Active 40 MG PO Daily at bedtime 90 90 March 27, 2025 12:00am Complies with drug therapy Start: 05-03-2023 End: 03-27-2025 take 1 tablet by mouth once daily at bedtime Atorvastatin 80 mg tablet Discontinued 80 MG PO Daily at bedtime 90 90 October 28, 2023 12:00am February 28, 2024 8:12am Blood Sugar Diagnostic (20 sources) Start: 09-05-2023 Blood Sugar Di agnostic Active STRIP 120 September 05, 2023 12:00am Fingerstick blood sugar ACHS Start: 09-05-2023 Blood Sugar Di agnostic Active STRIP 120 September 05, 2023 1:00am Fingerstick blood sugar ACHS Blood-Glucose Sensor (DEXCOM G7 SENSOR) delfin (8 sources) Start: 01-01-2025 Blood-Glucose Sensor (DEXCOM G7 SENSOR) delfin Indications: 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 3 each 12/25/2024 Active calcium carbonate 1250 mg oral tablet (1 source) take 1 tablet by mouth three times daily at mealtime calcium carbonate (Oscal) 500 mg calcium (1,250 mg) tablet Take 1 tablet (1,250 mg) by mouth 3 times a day with meals. 0 Active Centrum Silver - (4 sources) Centrum Silver - as directed Orally Active cetirizine hydrochloride 10 mg oral tablet (20 sources) Histamine-1 Receptor Antagonist End: take 1 tablet by mouth once daily cetirizine (ZYRTEC) 10 mg tablet Take 10 mg by mouth once daily. Active cholecalciferol 0.05 mg oral tablet (20 sources) Vitamin D Start: 024 End: 025 take 1 tablet by mouth once daily cholecalciferol (Vitamin D-3) 50 MCG (2000 UT) tablet Take 2,000 Units by mouth Daily 10/26/2023 Active Start: 10-26-2023 take 100 ug by mouth once daily Cholecalciferol (Vitamin D3) 125 mcg/0.5 mL (5K unit/0.5mL) drops Active 100 MCG PO Daily October 26, 2023 12:00am Complies with drug therapy Start: 10-26-2023 take 100 ug by mouth once daily Cholecalciferol (Vitamin D3) Active 100 MCG PO Daily October 25, 2023 11:00pm Start: 10-26-2023 take 100 ug by mouth once daily Cholecalciferol (Vitamin D3) Active 100 MCG PO Daily October 26, 2023 12:00am Start: 08-31-2023 End: 10-28-2023 take 1 tablet by mouth once daily Cholecalciferol (Vitamin D3) (Vitamin D3) 50 mcg (2,000 unit) tablet Discontinued 50 MCG PO Daily August 31, 2023 1:00am October 28, 2023 2:44pm End: 07-20-2024 take 1 capsule by mouth in the morning cholecalciferol (Vitamin D-3) 25 MCG (1000 UT) capsule Take 25 mcg by mouth in the morning. 07/20/2024 Discontinued (Therapy completed) Cholecalciferol (Vitamin D3) 125 mcg/0.5 mL (5K unit/0.5mL) drops (7 sources) Start: 10-26-2023 take 100 ug by mouth once daily Cholecalciferol (Vitamin D3) 125 mcg/0.5 mL (5K unit/0.5mL) drops Active 100 MCG PO Daily October 26, 2023 12:00am Start: 10-26-2023 take 100 ug by mouth once daily Cholecalciferol (Vitamin D3) 125 mcg/0.5 mL (5K unit/0.5mL) drops Active 100 MCG PO Daily October 25, 2023 11:00pm Creon 6000 UNIT (4 sources) Creon 6000 UNIT as directed Orally Active dapagliflozin 10 mg oral tablet (20 sources) Sodium-Glucose Cotransporter 2 Inhibitor Start: End: take 1 tablet by mouth once daily dapagliflozin propanediol (FARXIGA) 10 mg tablet Take 1 tablet by mouth once daily. 08/30/2024 Active doxycycline hyclate 100 mg oral capsule (2 sources) Tetracycline-class Drug Start: End: doxycycline (Vibramycin) 100 MG capsule Indications: Lower respiratory infection Take 1 capsule (100 mg) by mouth in the morning and 1 capsule (100 mg) before bedtime. Do all this for 5 days. Take with at least 8 ounces (large glass) of water, do not lie down for 30 minutes after. 10 capsule 08/30/2024 09/04/2024 Active folic acid/multivit-min/lut ein (CENTRUM SILVER ORAL) (20 sources) folic acid/multivit-min/lut ein (CENTRUM SILVER ORAL) Take by mouth once daily. Active 0.2 ml glucagon 5 mg/ml auto-injector (20 sources) Antihypoglycemic Agent Start: glucagon (GVOKE HYPOPEN 2-PACK) 1 mg/0.2 mL auto-injector Inject 1 mg subcutaneously as needed. 0.4 mL 3 07/06/2024 Active Start: 01-03-2022 glucagon (rDNA ) injection 1 mg inject 1 mg by subcu taneous injection once Gvoke HypoPen 1-Pack 1 MG/0.2ML injection Inject 1 mg under the skin 1 (one) time if needed Active 150 ml glucose 50 mg/ml inje ction (3 sources) Start: 01-03-2022 dextrose bolus 10% 125 mL Start: 01-02-2022 End: 01-04-2022 dextrose 5 % solution 1 ml hydrALAZINE hydrochloride 20 mg/ml injection (1 source) Arteriolar Vasodilator Start: 01-04-2022 hydrALAZINE (APRESOLINE) injection 10 mg Insulin Aspart U-100 (Novolog Flexpen U-100 Insulin) 100 unit/mL (3 mL) Insulin Pen (20 sources) Start: 09-03-2023 Insulin Aspart U-100 (Novolog Flexpen U-100 Insulin) 100 unit/mL (3 mL) Insulin Pen Active 0 UNIT SUBCUT 3X/Day with meals and bedtime 0 September 03, 2023 1:00am Please contact the information source for Protocol details. Start: 09-03-2023 End: 10-28-2023 Insulin Aspart U-100 (Novolo g Flexpen U-100 Insulin) 100 unit/mL (3 mL) Insulin Pen Discontinued 0 UNIT SUBCUT 3x/Day with meals 0 September 03, 2023 1:00am October 28, 2023 2:44pm On Hold: medication in twice Please contact the information source for Protocol details. Start: 09-03-2023 Insulin Aspart U-100 (Novolog Flexpen U-100 Insulin) 100 unit/mL (3 mL) Insulin Pen Active 0 UNIT SUBCUT 3X/Day with meals and bedtime 0 September 03, 2023 12:00am Please contact the information source for Protocol details. Start: 09-03-2023 End: 10-28-2023 Insulin Aspart U-100 (Novolo g Flexpen U-100 Insulin) 100 unit/mL (3 mL) Insulin Pen Discontinued 0 UNIT SUBCUT 3x/Day with meals 0 September 03, 2023 12:00am October 28, 2023 1:44pm On Hold: medication in twice Please contact the information source for Protocol details. Start: 09-03-2023 Insulin Aspart U-100 (Novolog Flexpen U-100 Insulin) 100 unit/mL (3 mL) Insulin Pen Active 0 UNIT SUBCUT 3X/Day with meals and bedtime 0 September 03, 2023 12:00am Start: 09-03-2023 End: 10-28-2023 Insulin Aspart U-100 (Novolo g Flexpen U-100 Insulin) 100 unit/mL (3 mL) Insulin Pen Discontinued 0 UNIT SUBCUT 3x/Day with meals 0 September 03, 2023 12:00am October 28, 2023 1:44pm Start: 09-03-2023 End: 10-28-2023 Insulin Aspart U-100 (Novolo g Flexpen U-100 [...] 03, 2023 1:00am Start: 05-07-2023 End: 09-05-2023 Insulin Aspart U-100 (Novolo g Flexpen U-100 Insulin) 100 unit/mL (3 mL) Insulin Pen Discontinued 0 UNITS SUBCUT 3x/Day with meals 0 May 07, 2023 12:00am September 05, 2023 3:28pm Please contact the information source for Protocol details. Start: 05-07-2023 End: 09-05-2023 Insulin Aspart U-100 (Novolo g Flexpen U-100 Insulin) 100 unit/mL (3 mL) Insulin Pen Discontinued 0 UNITS SUBCUT 3x/Day with meals 0 May 06, 2023 11:00pm September 05, 2023 2:28pm Please contact the information source for Protocol details. Start: 05-07-2023 End: 09-05-2023 inject 1 dose by subcutaneous injection at bedtime Insulin Aspart U-100 (Novolog Flexpen U-100 Insulin) 100 unit/mL (3 mL) Insulin Pen Discontinued 1 sliding scale dose SUBCUT Before meals and at bedtime May 06, 2023 11:00pm September 05, 2023 2:28pm Start: 05-07-2023 End: 09-05-2023 Insulin Aspart U-100 (Novolo g Flexpen U-100 Insulin) 100 unit/mL (3 mL) Insulin Pen Discontinued 0 UNITS SUBCUT 3x/Day with meals May 06, 2023 11:00pm September 05, 2023 2:28pm Start: 05-07-2023 End: 09-05-2023 inject 1 dose [...] UNITS SUBCUT 3x/Day with meals 0 May 07, 2023 12:00am September 05, 2023 [...] 03, 2023 12:00am May 03, 2023 5:09pm Please contact the information source for Protocol details. Start: 05-03-2023 End: 05-03-2023 Insulin Aspart U-100 (Novolo g Flexpen U-100 Insulin) 100 unit/mL (3 mL) Insulin Pen Discontinued 0 UNITS SUBCUT 3x/Day with meals May 02, 2023 11:00pm May 03, 2023 4:09pm Please contact the information source for Protocol details. 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, with long-term current use of insulin (HCC) ADMINISTER PER PUMP (MAX DAILY 60 UNITS) 20 mL 5 09/22/2024 10/04/2024 Discontinued Start: 09-03-2023 Insulin Aspart U-100 (Novolog Flexpen U-100 Insulin) 100 unit/mL (3 mL) Insulin Pen Active 0 UNIT SUBCUT 3X/Day with meals and bedtime Protocol: *If the corrective scale dose has been administered within the past 4 hours, do not use corrective scale again unless approved by prescriber* Condition: Corrective Scale #2 (TDI 26-50 UNITS) Condition: Dose/Route: Instructions: Condition: Fingerstick Blood Glucose Dose/Route: Insulin Units Condition: 150-199 mg/dl Dose/Route: 2 unit Condition: 200-249 mg/dl Dose/Route: 3 unit Condition: 250-299 mg/dl Dose/Route: 5 unit Condition: 300-349 mg/dl Dose/Route: 7 unit Condition: 350-399 mg/dl Dose/Route: 8 unit Condition: greater than or = 400 mg/dl Dose/Route: 9 unit Instructions: Call Provider 0 September 03, 2023 1:00am Please contact the information source for Protocol details. Complies with drug therapy Start: 08-31-2023 End: 09-05-2023 Insulin Aspart U-100 (Novolo g U-100 Insulin Aspart) 100 unit/mL solution Discontinued 50 UNIT CNTSUBQINF Daily August 31, 2023 1:00am September 05, 2023 3:28pm per insulin pump Start: 08-18-2023 End: 07-20-2024 NovoLOG FLEXPEN 100 UNIT/ML pen 08/18/2023 07/20/2024 Discontinued (Therapy completed) Start: 05-07-2023 End: 10-28-2023 Insulin Aspart U-100 (Novolo g Flexpen U-100 Insulin) 100 unit/mL (3 mL) Insulin Pen Discontinued 0 UNIT SUBCUT 3x/Day with meals Protocol: *Carb coverage 1:10*Give 1 unit of rapid-acting insulin for every 10 gm of carbohydrates eaten at meals 0 September 03, 2023 1:00am October 28, 2023 2:44pm On Hold: medication in twice Please contact the information source for Protocol details. Start: 05-03-2023 End: 05-07-2023 Insulin Aspart U-100 (Novolo g Flexpen U-100 Insulin) 100 unit/mL (3 mL) insulin pen Discontinued 0 units SUBCUT Before meals and at bedtime Protocol: If the corrective scale dose has been administered within the past 4 hours, do not use corrective scale again unless otherwise directed Condition: 150-199 mg/dL Dose/Route: 1 unit Condition: 200-249 mg/dL Dose/Route: 2 unit Condition: 250-299 mg/dL Dose/Route: 3 unit Condition: 300-349 mg/dL Dose/Route: 4 unit Condition: 350-399 mg/dL Dose/Route: 5 unit Condition: greater than or = 400 mg/dL Dose/Route: 6 unit May 03, 2023 5:09pm May 07, 2023 2:27pm Please contact the information source for Protocol details. Start: 04-28-2023 End: 05-03-2023 Insulin Aspart U-100 (Novolo g Flexpen U-100 Insulin) 100 unit/mL (3 mL) Insulin Pen Discontinued 0 UNITS SUBCUT 3x/Day with meals Protocol: *CARB COVERAGE 1:10*GIVE 1 UNIT OF ASPART FOR EVERY 10 GM CHO EATEN AT MEALS 0 May 03, 2023 12:00am May 03, 2023 5:09pm Please contact the information source for Protocol details. Start: 04-28-2023 End: 05-03-2023 inject 5 [IU] by subcutaneous injection after breakfast Insulin Aspart U-100 (Novolog Flexpen U-100 Insulin) 100 unit/mL (3 mL) insulin pen Discontinued 5 UNIT SUBCUT After breakfast and lunch April 28, 2023 12:00am May 03, 2023 5:10pm inject 100 [IU] by s ubcutaneous injection three times daily before mealtime insulin aspart (NovoLOG U-100 Insulin aspart) 100 unit/mL injection Inject 100 Units under the skin 3 times a day before meals. Take as directed per insulin instructions. 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) Basal: 12A 0.3, 7A 0.4, 9P 0.5, 10 units breakfast, 8 units with lunch, 7 dinner, ISF: 75 1 each 05/30/2024 Active Start: 02-04-2023 End: 05-30-2024 Insulin Disposable Pump (Omn ipod DASH PDM, Gen 4,) kit Indications: 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) Basal: 12A 0.3, 7A 0.4, 9P 0.5, 6 units breakfast/lunch, 7 dinner, ISF: 75 1 each 02/04/2023 05/30/2024 Discontinued (Reorder) Start: 02-04-2023 Insulin Dispos able Pump (Omnipod DASH PDM, Gen 4,) kit Indications: 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 For use in case of pump failure 15 mL 3 10/04/2024 Active Start: 10-04-2024 insulin glargi ne (Lantus SoloStar) 100 UNIT/ML pen Inject 12 Units under the skin at bedtime 10/04/2024 Active Start: 07-17-2024 inject 5 [IU] by sub cutaneous injection once daily at bedtime Insulin Glargine (Lantus Solostar U-100 Insulin) 100 unit/mL (3 mL) Insulin Pen Active 5 UNIT SUBCUT Daily at bedtime 0.5 July 17, 2024 1:00am Complies with drug therapy Start: 07-06-2024 End: 10-04-2024 insulin glargine (LANTUS) 10 0 unit/mL injection In case of pump failure 07/06/2024 10/04/2024 Discontinued Start: 06-02-2024 End: 08-31-2024 inject 12 [IU] by subcutaneous injection at bedtime insulin glargine (Lantus) 100 UNIT/ML injection Indications: 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) Inject 12 Units under the skin at bedtime 10 mL 06/02/2024 07/20/2024 Discontinued (Therapy completed) Start: 05-30-2024 End: 08-28-2024 inject 16 [IU] by subcutaneous injection at bedtime insulin glargine (Lantus) 100 UNIT/ML injection Indications: 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) Inject 16 Units under the skin at bedtime 10 mL 05/30/2024 08/28/2024 Active Start: 09-03-2023 End: 10-28-2023 Insulin Glargine (Lantus Renetta ostar U-100 Insulin) 100 unit/mL (3 mL) Insulin Pen Discontinued 24 UNIT SUBCUT Daily 0 September 03, 2023 1:00am October 28, 2023 2:43pm On Hold: medication in twice Start: 08-31-2023 End: 07-16-2024 Insulin Glargine (Lantus Renetta ostar U-100 Insulin) 100 unit/mL (3 mL) Insulin Pen Discontinued 16 UNIT SUBCUT Bedtime August 31, 2023 1:00am July 16, 2024 8:12pm Start: 08-31-2023 inject 8 [IU] by sub cutaneous injection at bedtime Insulin Glargine (Lantus Solostar U-100 Insulin) 100 unit/mL (3 mL) Insulin Pen Active 8 UNIT SUBCUT Bedtime August 31, 2023 1:00am Start: 08-30-2023 End: 05-30-2024 inject 8 [IU] by subcutaneous injection at bedtime insulin glargine (Lantus) 100 UNIT/ML injection Indications: 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 (CMS/HCC) Inject 8 Units under the skin at bedtime 08/30/2023 05/30/2024 Discontinued (Reorder) Start: 08-20-2023 End: 07-20-2024 Lantus SoloStar 100 UNIT/ML pen Inject 18 Units under the skin at bedtime 08/20/2023 07/20/2024 Discontinued (Therapy completed) Start: 05-03-2023 End: 08-31-2023 inject 7 [IU] [...] Insulin Pump - Bolus Dose (Patient Supplied) insulin pump cart,auto,BT,G6 /7 (OMNIPOD 5 G6-G7 PODS, GEN 5,) crtg (20 sources) Start: 12-12-2024 insulin pump c art,auto,BT,G6/7 (OMNIPOD 5 G6-G7 PODS, GEN 5,) crtg Indications: 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 10 Each 07/06/2024 Active Lactobac no.41/Bifidobact no.7 (PROBIOTIC-10 ORAL) (20 sources) Lactobac no.41/B ifidobact no.7 (PROBIOTIC-10 ORAL) Take by mouth once daily. Active Lactobacillus Combination No.4 (Probiotic) 3 billion cell capsule (5 sources) Start: 08-31-2024 take 3 capsules by mouth once daily Lactobacillus Combination No.4 (Probiotic) 3 billion cell capsule Active 3000 MMU CELLS PO Daily August 31, 2024 1:00am administer with a meal Complies with drug therapy Start: 08-31-2024 take 3 capsules by m outh once daily Start: 08-31-2024 take 3 capsules by m outh once daily Lactobacillus Combination No.4 (Probiotic) 3 billion cell capsule Active 3000 MMU CELLS PO Daily August 31, 2024 1:00am administer with a meal Start: 08-31-2024 take 3 capsules by m outh once daily Lactobacillus Combination No.4 (Probiotic) 3 billion cell capsule Active 3000 MMU CELLS PO Daily August 31, 2024 12:00am administer with a meal lipase/protease/amylase (CREON ORAL) (2 sources) take 96125 mg by mouth three times daily lipase/protease/amylase (CREON ORAL) Take 24,000 mg by mouth 3 times a day. 0 Active lisinopril 2.5 mg oral tablet (20 sources) Angiotensin Converting Enzyme Inhibitor Star t: 03-12 End: 11-28 lisinopril 2.5 mg tablet Take 2.5 mg by mouth. 03/27/2024 Active lutein 6 mg oral capsule (20 sources) Star t: 10-10 End: 03-31 take 1 capsule by mouth once daily Lutein 6 mg capsule Active 6 MG PO Daily October 26, 2023 12:00am give with meal/snack Complies with drug therapy take 1 capsule by co ut every twenty-four hours Lutein 6 MG 1 capsule with a meal Orally Once a day Active take 1 tablet by mouth once parul y lutein 10 mg tablet Take 1 tablet by mouth once daily. 0 Active take 1 capsule by mouth once luc ly Lutein 6 MG 1 capsule with a meal Orally Once a day Active lutein 25 mg / zeaxanthin 5 mg oral capsule (20 sources) lutein-zeaxanthi n 25-5 mg cap Take by mouth once daily. Active melatonin 1 mg oral tablet (1 source) Start: 2 melatonin tablet 3 mg 24 hr metoprolol succinate 25 mg extended release oral tablet (20 sources) beta-Adrenergic Sarah Start: 5 take 2 tablets by mouth once daily at bedtime Metoprolol Succinate 25 mg tablet extended release 24 hr Active 12.5 MG PO Daily at bedtime 45 90 March 27, 2025 12:00am Complies with drug therapy Start: 07-16-2024 End: 03-27-2025 take 2 tablets by mouth twice daily Metoprolol Succinate 25 mg tablet extended release 24 hr Discontinued 12.5 MG PO Twice daily 90 90 December 05, 2024 9:38am March 27, 2025 10:50am Start: 12-11-2024 take 0.5 tablet by m outh every twelve hours metoprolol succinate ER (TOPROL XL) 50 mg 24 hr tablet Take 0.5 tablets by mouth every 12 hours. 06/21/2024 Active Start: 05-25-2024 End: 07-16-2024 take 1 tablet by mouth twice daily Metoprolol Succinate 50 mg Tablet Extended Release 24 Hr Discontinued 50 MG PO Twice daily 60 30 May 25, 2024 1:00am July 16, 2024 8:14pm Start: 05-16-2024 End: 05-25-2024 take 2 tablets by mouth twice daily Metoprolol Succinate 25 mg tablet extended release 24 hr Discontinued 12.5 MG PO Twice daily May 16, 2024 1:00am May 25, 2024 10:49am Start: 05-16-2024 take 12.5 mg by mout h twice daily Metoprolol Succinate Active 12.5 MG PO Twice daily May 16, 2024 12:00am Start: 04-24-2024 End: 05-30-2024 take 0.5 tablet by mouth every twenty-four hours in the morning metoprolol succinate XL (Toprol-XL) 25 MG 24 hr tablet Indications: Coronary arteriosclerosis (CMS/HCC) Take 0.5 tablets (12.5 mg) by mouth in the morning and 0.5 tablets (12.5 mg) before bedtime. 180 tablet 3 04/24/2024 05/30/2024 Discontinued (Therapy completed) Start: 02-15-2024 End: 05-16-2024 take 2 tablets by mouth once daily Metoprolol Succinate 25 mg tablet extended release 24 hr Discontinued 12.5 MG PO Daily 45 February 15, 2024 12:00am May 16, 2024 1:54pm Start: 02-15-2024 End: 05-16-2024 take 12.5 mg by mouth once daily Metoprolol Succinate Discontinued 12.5 MG PO Daily 45 February 14, 2024 11:00pm May 16, 2024 12:54pm Start: 02-05-2024 End: 02-15-2024 take 2 tablets by mouth twice daily Metoprolol Succinate (Toprol Xl) 25 mg tablet extended release 24 hr Discontinued 12.5 MG PO Twice daily February 05, 2024 12:00am February 15, 2024 10:58am take 0.5 tablet by m outh every twenty-four hours in the morning metoprolol succinate XL (Toprol-XL) 50 MG 24 hr tablet Take 0.5 tablets by mouth in the morning and 0.5 tablets before bedtime. Do not crush or chew. Active End: 01-02-2025 take 1 tablet by mouth every twenty-four hours in the morning metoprolol succinate XL (Toprol-XL) 25 MG 24 hr tablet Take 12.5 mg by mouth in the morning and 12.5 mg before bedtime. Do not crush or chew.. 01/02/2025 Discontinued (Dose adjustment) Multiple Vitamins-Minerals (Centrum Silver 50+Men) tablet (20 sources) take 1 tablet by mouth once daily Multiple Vitamins-Minerals (Centrum Silver 50+Men) tablet Take 1 tablet by mouth 1 (one) time each day. Active Multiple Vitamins-Minerals (LUTEIN-ZEAXANTHIN PO) (1 source) take 1 tablet by mouth once daily Multiple Vitamins-Minerals (LUTEIN-ZEAXANTHIN PO) Take 1 tablet by mouth daily 0 Active Multivit With Min-Folic Acid (Centrum Adults) 12 mcg tablet,chewable (20 sources) Start: 10-26-2023 take 1 tablet by mouth once daily Multivit With Min-Folic Acid (Centrum Adults) 12 mcg tablet,chewable Active 1 TAB PO Daily October 26, 2023 12:00am Complies with drug therapy Start: 10-26-2023 take 1 tablet by mouth once da brittany Start: 10-26-2023 take 1 tablet by mouth once da brittany Multivit With Min-Folic Acid (Centrum Adults) 12 mcg tablet,chewable Active 1 TAB PO Daily October 25, 2023 11:00pm Start: 10-26-2023 take 1 tablet by mouth once da brittany Multivit With Min-Folic Acid (Centrum Adults) 12 mcg tablet,chewable Active 1 TAB PO Daily October 26, 2023 12:00am multivit-min/ferrous fumarate (MULTI VITAMIN ORAL) (1 source) take 1 tablet by mouth once daily multivit-min/ferrous fumarate (MULTI VITAMIN ORAL) Take 1 tablet by mouth once daily. 0 Active ondansetron (ZOFRAN-ODT) disintegrating tablet 4 mg (1 source) Start: 2021 ondansetron (ZOFRAN-ODT) disintegrating tablet 4 mg pantoprazole (PROTONIX) 40 mg in sodium chloride (PF) 10 mL injection (1 source) Start: 2021 40 mg, IntraVENous, EVERY 12 HOURS, First dose on Wed01/02/22 at 2300 Reconstitute with 10 mL 0.9 % sodium chloride and administer over at least 2 minutes. PARoxetine hydrochloride 40 mg oral tablet (20 sources) Serotonin Reuptake Inhibitor Start: 2023 End: 2023 take 1 tablet by mouth once daily in the morning Paroxetine Hcl 40 mg tablet Active 40 MG PO Every morning February 15, 2024 12:00am Complies with drug therapy Start: 04-28-2023 End: 04-17-2024 take 1 tablet by mouth once daily Paroxetine Hcl 30 mg Tablet Discontinued 30 MG PO Daily May 07, 2023 12:00am February 15, 2024 10:09am Start: 01-05-2022 take 30 mg by mouth [...] Midline or Central Line = 20 mL/lumen spironolactone 25 mg oral tablet (20 sources) Aldosterone Antagonist Start: 10-13-2024 End: 01-24-2025 take 1 tablet by mouth once daily Spironolactone 25 mg tablet Active 25 MG PO Daily January 24, 2025 8:09am Complies with drug therapy Start: 08-31-2024 End: 10-13-2024 Spironolactone 25 mg tablet Discontinued 12.5 MG PO Daily August 31, 2024 1:00am October 13, 2024 9:58am Start: 07-16-2024 End: 08-31-2024 take 1 tablet by mouth once daily Spironolactone 25 mg tablet Discontinued 25 MG PO Daily July 16, 2024 1:00am August 31, 2024 11:09am Start: 03-27-2024 End: 06-16-2024 Spironolactone 25 mg tablet Discontinued 12.5 MG PO Every morning May 16, 2024 1:00am June 16, 2024 7:21pm Start: 03-27-2024 End: 05-16-2024 take 12.5 mg by mouth once daily in the morning Spironolactone Active 12.5 MG PO Every morning May 16, 2024 12:00am Start: 02-05-2024 End: 03-27-2024 take 1 tablet by mouth once daily Spironolactone 25 mg Tablet Discontinued 25 MG PO Daily February 08, 2024 12:00am March 27, 2024 11:44am tamsulosin hydrochloride 0.4 mg oral capsule (20 sources) alpha-Adrenergic Sarah Start: 05-16-2024 take 1 capsule by mouth every twenty-four hours at bedtime tamsulosin (Flomax) 0.4 MG 24 hr capsule Take 1 capsule by mouth at bedtime 05/16/2024 Active Start: 04-28-2023 End: 08-31-2024 take 1 capsule by mouth once daily Tamsulosin 0.4 mg Capsule Discontinued 0.4 MG PO Daily May 07, 2023 12:00am May 16, 2024 1:54pm Vitamin D3 1506083 UNIT/GM (4 sources) Vitamin D3 94843 00 UNIT/GM as directed Active Completed/Discontinued Medications Medication Drug Class(es) Dates Sig (Normalized) Sig (Original) acetaminophen 500 mg oral tablet (20 sources) Start: 05-03-2023 End: 08-31-2024 take 1 tablet by mouth every six hours Acetaminophen 500 mg Tablet Discontinued 500 MG PO Every 6 hours May 07, 2023 12:00am August 31, 2023 3:53pm Start: 05-03-2023 End: 05-03-2023 take 1-3 tablets by mouth every four hours as needed for pain Acetaminophen (Tylenol) 325 mg Tablet Discontinued 650 MG PO Q4H as needed for Pain Scale 1 - 3 or fever 0 May 03, 2023 12:00am May 03, 2023 5:10pm Start: 05-03-2023 End: 05-03-2023 take 2 tablets by mouth every four hours Acetaminophen (Tylenol) 325 mg Tablet Discontinued 650 MG PO Q4H 0 May 02, 2023 11:00pm May 03, 2023 4:10pm Start: 01-06-2022 acetaminophen (TYLENOL) tablet 1,000 mg Acetaminophen Ex tra Strength 500 MG tablet Daily. Active acetaminophen 325 mg / HYDROcodone bitartrate 5 mg oral tablet (20 sources) Opioid Agonist Start: 05-03-2023 End: 08-31-2023 take 1 tablet by mouth every four hours as needed for pain Hydrocodone-Acetaminophen 5-325 mg Tablet Discontinued 1 TAB PO Q4H as needed for Pain 28 01May 07, 2023 August 31, 2023 4:51pm take 1-2 tablets by mouth every four to six hours as needed HYDROcodone-Acetaminophen 5-325 MG 1-2 t ablet as needed Orally every 4-6 hrs for 7 days ROSEANN # [id number] Active take 1 tablet by sondra th every six hours HYDROcodone-Acetaminophen 5-325 MG 1 tab let as needed Orally every 6 hrs Active aluminum hydroxide 40 mg/ml / magnesium hydroxide 40 mg/ml / simethicone 4 mg/ml oral suspension (20 sources) Start: 05-03-2023 End: 05-03-2023 take 1 mL by mouth every four hours as needed Alum-Mag Hydroxide-Simeth (Mag-Al Plus) 200-200-20 mg/5 mL Suspension Discontinued 30 ML PO Q4H as needed for Epigastric distress (Non-Card) 0 May 03, 2023 12:00am May 03, 2023 5:10pm amoxicillin 875 mg / clavulanate 125 mg oral tablet (2 sources) Penicillin-class Antibacterial Start: 04-17-2024 End: 04-22-2024 take 1 tablet by mouth in the morning amoxicillin-clavulana te (Augmentin) 875-125 MG tablet Indications: Bronchitis Take 1 tablet (875 mg) by mouth in the morning and 1 tablet (875 mg) before bedtime. Do all this for 5 days. 14 tablet 04/17/2024 04/22/2024 ascorbic acid 500 mg oral tablet (20 [...] (Therapy completed) bisacodyl 10 mg rectal suppository (20 sources) Stimulant Laxative Start: 05-03-2023 End: 05-03-2023 Bisacodyl 10 mg Suppository Discontinued 10 MG TX Daily as needed for Constipation 0 May 03, 2023 12:00am May 03, 2023 5:10pm Start: 05-03-2023 End: 05-03-2023 take 2 tablets by mouth once daily as needed for constipation Bisacodyl 5 mg Tablet,Delayed Release (Dr/Ec) Discontinued 10 MG PO Daily as needed for Constipation 0 May 03, 2023 12:00am May 03, 2023 5:10pm Start: 05-03-2023 End: 05-03-2023 take 10 mg by mouth once daily Bisacodyl Discontinued 10 MG PO Daily 0 May 02, 2023 11:00pm May 03, 2023 4:10pm Start: 01-02-2022 take 10 mg rectal ro [place] once daily as needed 10 mg, Rectal, DAILY PRN, Starting on Wed01/02/22 at 2231, Until Discontinued, Constipation First line therapy for constipation bismuth subsalicylate 17.5 mg/ml oral suspension (20 sources) Bismuth Start: 09-05-2023 End: 10-21-2023 take 300 mg by mouth four times daily Bismuth Subsalicylate (Stomach Relief) 262 mg/15 mL Suspension Discontinued 300 MG PO Four times daily 824.429 September 05, 2023 1:00am October 21, 2023 8:40am calcium carbonate 1250 mg / cholecalciferol 200 unt oral tablet (4 sources) Vitamin D Start: 05-03-2023 End: 08-31-2023 take 1 tablet by mouth once at mealtime Calcium Carbonate-Vitamin D3 (Oyster Shell Calcium-Vit D3) 500 mg-5 mcg (200 unit) Tablet Discontinued 1 TAB PO 3x/Day with meals May 07, 2023 12:00am August 31, 2023 4:56pm Calcium Carbonate-Vitamin D3 (Oyster Shell Calcium-Vit D3) 500 mg-5 mcg (200 unit) Tablet (20 sources) Start: 05-07-2023 End: 08-31-2023 take 1 tablet by mouth once at mealtime Calcium Carbonate-Vitamin D3 (Oyster Shell Calcium-Vit D3) 500 mg-5 mcg (200 unit) Tablet Discontinued 1 TAB PO 3x/Day with meals May 06, 2023 11:00pm August 31, 2023 3:56pm Start: 05-07-2023 End: 08-31-2023 take 1 tablet [...] 1 TAB PO 3x/Day with meals 0 May 03, 2023 12:00am calcium chloride 0.0014 meq/ml / potassium chloride 0.004 meq/ml / sodium chloride 0.103 meq/ml / sodium lactate 0.028 meq/ml injectable solution (1 source) Start: 01-02-2022 End: 01-05-2022 IntraVENous, at 125 mL/hr, CONTINUOUS, Starting on Wed01/02/22 at 2300 cephalexin 500 mg oral capsule (20 sources) Cephalosporin Antibacterial Start: 06-21-2024 End: 07-16-2024 take 1 capsule by mouth three times daily Cephalexin 500 mg capsule Discontinued 500 MG PO Three times daily 29 01June 21, 2024 11:28am July 16, 2024 8:10pm Start: 06-18-2024 End: 07-20-2024 take 1 capsule by mouth twice daily Cephalexin 500 mg capsule Discontinued 500 MG PO Twice daily 22 01June 18, 2024 1:00am June 21, 2024 11:28am clopidogrel 75 mg oral tablet (20 sources) [id number] Platelet Inhibitor Start: 08-16-2023 End: 08-15-2024 take 1 tablet by mouth once daily Clopidogrel 75 mg tablet Discontinued 75 MG PO Daily August 31, 2023 1:00am February 08, 2024 1:25pm collagenase Clostridium histolyticum (4 sources) Start: 04-16-2020 Xiaflex Apr, 0.01 mg cyclobenzaprine hydrochloride 5 mg oral tablet (20 sources) Muscle Relaxant Start: 05-07-2023 End: 08-31-2023 take 1 tablet by mouth every eight hours as needed for muscle spasms Cyclobenzaprine 5 mg Tablet Discontinued 5 MG PO Q8H as needed for Muscle Spasm May 07, 2023 12:00am August 31, 2023 4:51pm take 1 tablet by sondra th three times daily as needed for muscle spasms cyclobenzaprine (Flexeril) 5 mg tablet T tom 1 tablet (5 mg) by mouth 3 times a day as needed for muscle spasms. 0 Active empagliflozin 10 mg oral tablet (19 sources) Sodium-Glucose Cotransporter 2 Inhibitor Start: 03-27-2024 End: 05-16-2024 take 1 tablet by mouth once daily Empagliflozin (Jardiance) 10 mg tablet Discontinued 10 MG PO Daily March 27, 2024 12:00am May 16, 2024 1:44pm 0.4 ml enoxaparin sodium 100 mg/ml prefilled syringe (20 sources) Low Molecular Weight Heparin Start: 05-03-2023 End: 05-07-2023 Enoxaparin (Lovenox) 40 mg/0.4 mL Syringe Discontinued 40 MG SUBCUT DAILY@1000 0 May 03, 2023 12:00am May 07, 2023 2:27pm Start: 01-03-2022 enoxaparin (LO VENOX) injection 40 mg ferrous sulfate 324 mg delayed release oral tablet (20 sources) Start: 05-07-2023 End: 08-31-2023 take 1 tablet by mouth once daily Ferrous Sulfate 324 mg (65 mg iron) Tablet,Delayed Release (Dr/Ec) Discontinued 324 MG PO Daily May 07, [...] mg IVPB furosemide 20 mg oral tablet (20 sources) Loop Diuretic Start: 08-09-2024 End: 08-31-2024 take 1 tablet by mouth once daily in the morning Furosemide 20 mg tablet Discontinued 0 .ROUTE .COMPLEX 90 August 09, 2024 12:46pm August 31, 2024 11:10am TAKE 1 TABLET BY MOUTH EVERY DAY AT 8 AM Start: 07-17-2024 End: 08-09-2024 take 1 tablet by mouth once daily Furosemide 20 mg Tablet Discontinued 20 MG PO Daily at 0800 30 July 17, 2024 1:00am August 09, 2024 12:47pm Start: 02-15-2024 End: 02-15-2024 take 1 tablet by mouth once daily Furosemide (Lasix) 20 mg tablet Discontinued 20 MG PO Daily February 15, 2024 12:00am February 15, 2024 10:58am Start: 08-31-2023 End: 09-05-2023 Furosemide Discontinued MG T ABLET August 31, 2023 12:00am September 05, 2023 2:28pm Start: 08-16-2023 End: 10-21-2023 take 1 tablet by mouth once daily as needed Furosemide 20 mg tablet Discontinued 20 MG PO Daily as needed for as instructed 0 90 September 03, 2023 11:53am October 21, 2023 8:40am End: 08-30-2024 take 10 mg by mouth once daily furosemide (Lasix) 20 M G tablet Take 10 mg by mouth Daily 08/30/2024 Discontinued (Therapy completed) Insulin Aspart U-100 (Novolo g Flexpen U-100 Insulin) 100 unit/mL (3 mL) insulin pen (20 sources) Start: 05-03-2023 End: 05-07-2023 Insulin Aspart U-100 (Novolo g Flexpen U-100 Insulin) 100 unit/mL (3 mL) insulin pen Discontinued 0 units SUBCUT Before meals and at bedtime May 03, 2023 5:09pm May 07, 2023 2:27pm Please contact the information source for Protocol details. Start: 05-03-2023 End: 05-07-2023 Insulin Aspart U-100 (Novolo g Flexpen U-100 Insulin) 100 unit/mL (3 mL) insulin pen Discontinued 0 units SUBCUT Before meals and at bedtime May 03, 2023 4:09pm May 07, 2023 1:27pm Please contact the information source for Protocol details. Start: 05-03-2023 End: 05-07-2023 Insulin Aspart U-100 [...] April 28, 2023 12:00am Insulin Aspart U-100 (Novolo g U-100 Insulin Aspart) 100 unit/mL solution (20 sources) Start: 08-31-2023 End: 09-05-2023 Insulin Aspart U-100 (Novolo g U-100 Insulin Aspart) 100 unit/mL solution Discontinued 50 UNIT CNTSUBQINF Daily August 31, 2023 12:00am September 05, 2023 2:28pm per insulin pump Start: 08-31-2023 End: 09-05-2023 Insulin Aspart U-100 (Novolo g U-100 Insulin Aspart) 100 unit/mL solution Discontinued 50 UNIT CNTSUBQINF Daily August 31, 2023 1:00am September 05, 2023 3:28pm per insulin pump insulin regular (HUMULIN R;NOVOLIN R) 100 Units in sodium chloride 0.9 % 100 mL infusion (1 source) Start: 01-02-2022 End: 01-03-2022 insulin regular (HUMULIN R;NOVOLIN R) 100 Units in sodium chloride 0.9 % 100 mL infusion iohexol (OMNIPAQUE 240) injection 100 mL (1 source) Start: 01-05-2022 End: 01-05-2022 iohexol (OMNIPAQUE 240) injection 100 mL 10 ml iron sucrose 20 mg/ml injection (19 sources) Parenteral Iron Replacement Start: 02-18-2024 End: 03-15-2024 Iron Sucrose (Venofer) 200 mg iron/10 mL solution Discontinued 100 MG IV 3 Times a week February 18, 2024 12:00am March 15, 2024 10:49am administer over 30 mins lactobacillus acidophilus [id number] unt oral capsule (20 sources) Start: 08-31-2023 End: 09-05-2023 take 10 capsules by mouth once daily Lactobacillus Acidophilus (Probacap) 10 billion cell capsule Discontinued 100 MMU CELLS PO Daily August 31, 2023 1:00am September 05, 2023 3:28pm Lactobacillus (P robiotic Acidophilus) capsule 1 capsule 1 (one) time each day at the same time. Active lidocaine hydrochloride 10 mg/ml injectable solution (20 sources) Antiarrhythmic, Amide Local Anesthetic Start: 05-03-2023 End: 05-03-2023 Lidocaine Hcl (Xylocaine) 10 mg/mL (1 %) Solution Discontinued 0.1 ML INTRADERMA Pre-Op as needed for Venipuncture x 1 Dose 0 May 03, 2023 12:00am May 03, 2023 5:10pm loratadine 10 mg oral tablet (20 sources) Start: 10-26-2023 End: 08-31-2024 take 1 tablet by mouth once daily Loratadine (Claritin) 10 mg tablet Discontinued 1 TAB PO Daily October 26, 2023 12:00am August 31, 2024 11:10am FreeTextSi tablet Orally Once a day; Note: Source Status: Taking; Provider: Houston Maradiaga ( ) take 1 tablet by sondra th every twenty-four hours Claritin 10 MG 1 tablet Orally Once a day Active magnesium hydroxide 80 mg/ml oral suspension (20 sources) Start: 05-03-2023 End: 05-07-2023 take 1 mL by mouth twice daily as needed for constipation Magnesium Hydroxide (Milk Of Magnesia) 400 mg/5 mL Suspension Discontinued 30 ML PO Twice daily as needed for Constipation 0 May 03, 2023 12:00am May 07, 2023 2:27pm Start: 05-03-2023 End: 05-07-2023 take 1 mL by mouth twice daily as needed for constipation Magnesium Hydroxide (Milk Of Magnesia) 400 mg/5 mL Suspension Discontinued 30 ML PO Twice daily as needed for Constipation 0 May 03, 2023 12:00am May 07, 2023 2:27pm Start: 05-03-2023 End: 05-07-2023 take 1 mL by mouth twice daily as needed for constipation Magnesium Hydroxide (Milk Of Magnesia) 400 mg/5 mL Suspension Discontinued 30 ML PO Twice daily as needed for Constipation 0 May 02, 2023 11:00pm May 07, [...] at 2300 metroNIDAZOLE 500 mg oral tablet (20 sources) Nitroimidazole Antimicrobial Start: 09-05-2023 End: 10-21-2023 take 1 tablet by mouth three times daily Metronidazole 500 mg Tablet Discontinued 500 MG PO Three times daily 36 September 05, 2023 1:00am October 21, 2023 8:41am Multivitamin-[place] ls-Lutein (Multivitamin 50 Plus) tablet (20 sources) Start: 08-31-2023 End: 02-08-2024 Multivitamin-Adult Specialist als-Lutein (Multivitamin 50 Plus) tablet Discontinued 1 TAB PO Daily August 31, 2023 1:00am February 08, 2024 1:25pm On Hold: duplicate Start: 08-31-2023 End: 02-08-2024 Kxlmhehxfsbn-Bnsvjoju-Ybrfqd (Multivitamin 50 Plus) tablet Discontinued 1 TAB PO Daily August 31, 2023 12:00am February 08, 2024 12:25pm On Hold: duplicate Start: 08-31-2023 End: 02-08-2024 Jgxfwxlhynut-Oswkvucc-Hkbwoy (Multivitamin 50 Plus) tablet Discontinued 1 TAB PO Daily August 31, 2023 12:00am February 08, 2024 12:25pm Start: 08-31-2023 End: 02-08-2024 Rxxriqvpmbfi-Ssngithq-Gsacrt (Multivitamin 50 Plus) tablet Discontinued 1 TAB PO Daily August 31, 2023 1:00am February 08, 2024 1:25pm Start: 08-31-2023 Multivitamin-M inerals-Lutein (Multivitamin 50 Plus) tablet Active 1 TAB PO Daily August 31, 2023 1:00am nitroglycerin 0.4 mg sublingual tablet (20 sources) Nitrate Vasodilator Start: 05-03-2023 End: 06-22-2024 Nitroglycerin 0.4 mg tablet, sublingual Discontinued 0.4 MG SUBLINGUAL Q5M as needed for chest pain July 16, 2023 1:00am September 05, 2023 3:28pm until response; do not exceed 3 doses per event Nitroglycerin 0. 4 MG as directed Sublingual Active omeprazole 20 mg delayed release oral capsule (20 sources) Proton Pump Inhibitor Start: 05-16-2024 End: 08-31-2024 take 1 capsule by mouth twice daily Omeprazole 20 mg capsule,delayed release(DR/EC) Discontinued 20 MG PO Twice daily May 16, 2024 1:00am August 31, 2024 11:10am Start: 04-05-2024 End: 04-05-2025 Omeprazole Magnesium 20 mg t ablet Take 20 mg by mouth. 04/05/2024 04/05/2025 Active pantoprazole 40 mg oral granules (20 sources) Proton Pump Inhibitor Start: 02-08-2024 End: 02-15-2024 take 40 mg by mouth twice daily Pantoprazole (Protonix) [address] for susp in packet Discontinued 40 MG PO Twice daily 180 90 February 08, 2024 12:00am February 15, 2024 10:08am Start: 11-11-2023 End: 02-08-2024 take 1 tablet by mouth once daily, then take 1 tablet by mouth once daily Pantoprazole (Protonix) 40 mg tablet,delayed release (DR/EC) Discontinued 40 MG PO Daily 180 90 November 11, 2023 1:22pm February 08, 2024 1:25pm 40 mg p.o. twice daily x 2 weeks, followed by 40 mg p.o. daily. Please dispense accordingly. Start: 09-03-2023 End: 05-16-2024 take 1 tablet by mouth twice daily, then take 1 tablet by mouth once daily Pantoprazole (Protonix) 40 mg tablet,delayed release (DR/EC) Discontinued 40 MG PO Twice daily 180 90 February 08, 2024 1:22pm May 16, 2024 1:54pm 40 mg p.o. twice daily x 2 [...] (before breakfast) 90 tablet 1 01/07/2022 Active piperacillin-tazobactam (ZOS YN) 3,375 mg in [...] chloride 20 meq extended release oral tablet (20 sources) Start: 05-03-2023 End: 05-03-2023 Potassium Chloride (Klor-Con M20) 20 mEq Tablet,Er Particles/Crystals Discontinued 40 MEQ PO STAT as needed for Hypokalemia 0 May 03, 2023 12:00am May 03, [...] in dextrose 5 % 250 mL IVPB sacubitril 24 mg / valsartan 26 mg oral tablet (20 sources) Angiotensin 2 Receptor Sarah Start: 05-16-2024 End: 06-16-2024 take 1 tablet by mouth twice daily Sacubitril-Valsarta n (Entresto) 24-26 mg tablet Discontinued 1 TAB PO Twice daily May 16, 2024 1:00am June 16, 2024 7:21pm Start: 02-08-2024 End: 03-27-2024 take 1 tablet by mouth twice daily Sacubitril-Valsartan (Entresto) 24-26 mg Tablet Discontinued 1 TAB PO Twice daily 180 90 February 08, 2024 12:00am March 27, 2024 11:05am On Hold: hypotension End: 04-17-2024 take 1 tablet by mouth in the morning sacubitril-valsartan (Entresto) 24-26 MG tablet Take 1 tablet by mouth in the morning and 1 tablet before bedtime. 04/17/2024 Discontinued (Therapy completed) Sennosides (Senna Laxative) 8.6 mg Tablet (20 sources) Start: 05-03-2023 End: 05-03-2023 take 2 tablets by mouth at bedtime as needed for constipation Sennosides (Senna Laxative) 8.6 mg Tablet Discontinued 2 TAB PO Bedtime as needed for constipation 0 May 03, 2023 12:00am May 03, 2023 5:10pm Start: 05-03-2023 End: 05-03-2023 take 2 tablets by mouth at bedtime as needed for constipation Sennosides (Senna Laxative) 8.6 mg Tablet Discontinued 2 TAB PO Bedtime as needed for constipation 0 May 02, 2023 11:00pm May 03, 2023 4:10pm Start: 05-03-2023 End: 05-03-2023 take 2 tablets by mouth at bedtime Sennosides (Senna L axative) 8.6 mg Tablet Discontinued 2 TAB PO Bedtime 0 May 02, 2023 11:00pm May 03, 2023 4:10pm Start: 05-03-2023 End: 05-03-2023 take 2 tablets by mouth at bedtime Sennosides (Senna L axative) 8.6 mg Tablet Discontinued 2 TAB PO Bedtime 0 May 03, 2023 12:00am May 03, 2023 5:10pm Start: 05-03-2023 take 2 tablets by mouth at bed time Sennosides (Senna Laxative) 8.6 mg Tablet Active 2 TAB PO Bedtime 0 May 03, 2023 12:00am sennosides, group home 8.6 mg oral tablet (2 sources) Start: 05-03-2023 End: 05-03-2023 take 2 tablets by mouth at bedtime as needed for constipation Sennosides (Senna Laxative) 8.6 mg Tablet Discontinued 2 TAB PO Bedtime as needed for constipation 0 May 03, 2023 12:00am May 03, 2023 5:10pm sucralfate 1000 mg oral tablet (20 sources) Aluminum Complex Start: 02-08-2024 End: 04-26-2024 take 1 tablet by mouth every six hours Sucralfate 1 gram Tablet Discontinued 1 GM PO Every 6 hours 360 90 February 08, 2024 12:00am April 26, 2024 10:28am Start: 01-07-2022 take 10 mL by mouth [...] (CA RAFATE) 1 GM/10ML suspension 1 g tetracycline hydrochloride 500 mg oral capsule (20 sources) Tetracycline-class Antimicrobial Start: 09-06-2023 End: 10-21-2023 take 1 capsule by mouth four times daily Tetracycline 500 mg capsule Discontinued 500 MG PO Four times daily 112 September 06, 2023 1:00am October 21, 2023 8:42am Start: 09-05-2023 End: 10-21-2023 take 1 capsule by mouth four times daily Tetracycline 250 mg Capsule Discontinued 500 MG PO Four times daily 112 September 05, 2023 1:00am October 21, 2023 8:42am Start: 09-05-2023 End: 10-21-2023 take 500 mg by mouth four times daily Tetracycline Discontinued 500 MG PO Four times daily 112 September 05, 2023 12:00am October 21, 2023 7:42am ticagrelor 90 mg oral tablet (20 sources) Start: 07-16-2023 End: 09-05-2023 take 1 tablet by mouth twice daily Ticagrelor (Brilinta) 90 mg tablet Discontinued 90 MG PO Twice daily 180 July 16, 2023 1:00am September 05, 2023 3:28pm triamcinolone acetonide 1 mg/ml topical cream (20 sources) Corticosteroid Start: 05-03-2023 End: 10-28-2023 Triamcinolone Acetonide 0.1 % Cream Discontinued 1 APPLIC TOPICAL Four times daily as needed for Irritation May 07, 2023 12:00am October 28, 2023 10:38am Start: 04-16-2020 Kenalog -40 mg Apr, 40 mg Triamcinolone Ac etonide 0.1 % 1 application Externally Two times a Week Active Triamcinolone Ac etonide 0.1 % 1 application Externally Two times a Week Active valsartan 80 mg oral tablet (20 sources) Angiotensin 2 Receptor Sarah Start: 10-28-2023 End: 02-08-2024 take 1 tablet by mouth once daily Valsartan 80 mg tablet Discontinued 80 MG PO Daily October 28, 2023 12:00am February 08, 2024 1:25pm Start: 09-03-2023 End: 10-28-2023 Valsartan 160 mg Tablet Disc ontinued 80 MG PO Daily September 03, 2023 11:53am October 28, 2023 2:46pm Start: 09-03-2023 End: 10-28-2023 take 80 mg by mouth once daily Valsartan Discontinued 80 MG PO Daily September 03, 2023 10:53am October 28, 2023 1:46pm Start: 05-07-2023 End: 09-05-2023 take 1 tablet by mouth once daily Valsartan 160 mg Tablet Discontinued 160 MG PO Daily May 07, 2023 12:00am September 05, 2023 3:28pm Start: 05-03-2023 End: 05-07-2023 take 1 tablet by mouth once daily Valsartan 80 mg Tablet Discontinued 80 MG PO Daily May 03, 2023 12:00am May 07, 2023 2:27pm Problems Active Problems Problem Classification Problem Date Documented Da te Episodic/Chronic Acute myocardial infarction (20 sources) Myocardial infarction; Translations: [Non-ST elevation (NSTEMI) myocardial infarction] Onset: 3 05-25-2023 Chronic Administrative/social admission (20 sources) Other reduced mobility; Translations: [Impaired mobility and activities of daily living] 05-03-2023 Episodic Comment on above: Problem List clean-u p per request of Phys. EHR Cmte Anxiety disorders (20 sources) Mixed anxiety and depressive disorder; Translations: [Anxiety disorder, unspecified] Onset: 3 Resolved: 4 05-04-2023 Chronic Cardiac dysrhythmias (20 sources) Paroxysmal ventricular tachycardia; 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] 04-29-2023 Chronic Comment on above: Problem List clean-u p per request of Phys. EHR Cmte Cardiac dysrhythmias (20 sources) Bradycardia; Translations: [Bradycardia, unspecified] Onset: 4 04-26-2024 Episodic Chronic obstructive pulmonary disease and bronchiectasis (14 sources) Acute exacerbation of chronic obstructive airways disease; Translations: [Chronic obstructive pulmonary disease with (acute) exacerbation] Onset: 5 07-16-2024 Chronic Chronic obstructive pulmonary disease and bronchiectasis (4 sources) Bronchitis; Translations: [Bronchitis, not specified as acute or chronic] 04-26-2024 Episodic Conduction disorders (20 sources) H/O: cardiac pacemaker in situ; Translations: [Presence of automatic (implantable) cardiac defibrillator] Onset: 4 05-25-2024 Chronic Congestive heart failure; nonhypertensive (20 sources) Acute on chronic systolic heart failure; Translations: [Acute on chronic systolic (congestive) heart failure] Onset: 4 04-26-2024 Chronic Coronary atherosclerosis 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; Translations: [Atherosclerotic heart disease of [place] coronary artery without angina pectoris] Onset: 9 04-30-2023 Chronic Comment on above: Problem List clean-u p per request of Phys. EHR Cmte Coronary atherosclerosis and other heart disease (20 sources) Patient post percutaneous transluminal coronary angioplasty; Translations: [Coronary angioplasty status] 02-06-2024 Episodic Deficiency and other anemia (20 sources) Anemia; Translations: [Anemia, unspecified] 05-04-2023 Episodic Comment on above: Problem List clean-u p per request of Phys. EHR Cmte Deficiency and other anemia (3 sources) Anemia, unspecified; Translations: [Anemia, unspecified] 05-08-2023 Episodic Diabetes mellitus with complications (20 sources) Diabetes mellitus; Translations: [Uncontrolled diabetes mellitus] Onset: 3 Resolved: 4 05-04-2023 Chronic Comment on above: Problem List clean-u p per request of Phys. EHR Cmte Diabetes mellitus without complication (20 sources) Secondary diabetes mellitus; Translations: [Diabetes mellitus due to underlying condition without complications] Onset: 2 Resolved: 3 Chronic Comment on above: type 1- insulin pump in place. 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 EHR Cmte Fracture of upper limb (1 source) Other fracture of upper end of left radius, initial encounter for closed fracture; Translations: [Other fracture of upper end of left radius, initial encounter for closed fracture] Onset: 4 Episodic Gastroduodenal ulcer (except hemorrhage) (20 sources) Perforation of stomach; Translations: [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] Onset: 2 Resolved: Chronic Comment on above: previous rupture wit h repair. Gastrointestinal hemorrhage (20 sources) Melena; Translations: [Melena] 09-14-2023 Episodic Heart valve disorders (20 sources) Non-rheumatic mitral regurgitation ; Translations: [Nonrheumatic mitral (valve) insufficiency] Onset: 4 05-31-2024 Chronic Hyperplasia of prostate (20 sources) Benign prostatic hyperplasia; Translations: [Benign prostatic hyperplasia without lower urinary tract symptoms] Onset: 3 05-04-2023 Chronic Intestinal infection (20 sources) Infection caused by Helicobacter pylori; Translations: [Other specified bacterial intestinal infections] 10-21-2023 Episodic Mood disorders (20 sources) Moderate major depression, single episode; Translations: [Major depressive disorder, single episode, moderate] Onset: 3 02-05-2023 Chronic Nonspecific chest pain (1 source) Chest pain, unspecified; Translations: [Chest pain, unspecified] Onset: 4 Episodic Nutritional deficiencies (20 sources) Deficiency of macronutrients; Translations: [Mild protein-calorie malnutrition] 05-04-2023 Chronic Nutritional deficiencies (20 sources) Iron deficiency; Translations: [Iron deficiency] Onset: 4 02-18-2024 Episodic Osteoporosis (20 sources) Osteoporosis; Translations: [Age-related osteoporosis without current pathological fracture] 05-04-2023 Chronic Comment on above: Problem List clean-u p per request of Phys. EHR Cmte Other aftercare (2 sources) Post-discharge follow-up; Translations: [Encounter for follow-up examination after completed treatment for conditions other than malignant neoplasm] 05-31-2024 Episodic Other and ill-defined heart disease (20 sources) Left ventricular systolic dysfunction; Translations: [Other ill-defined heart diseases] 04-29-2023 Chronic Comment on above: Problem List clean-u p per request of Phys. EHR Cmte Other and ill-defined heart disease (7 sources) Other ill-defined heart diseases; Translations: [Heart disease, unspecified] 05-03-2023 Chronic Other and ill-defined heart disease (2 sources) Mild left ventricular systolic dysfunction; Translations: [Other ill-defined heart diseases] 06-23-2023 Chronic Comment on above: Problem List clean-u p per request of Phys. EHR Cmte Other circulatory disease (4 sources) Orthostatic hypotension; Translations: [Orthostatic hypotension] 04-26-2024 Episodic Other connective tissue disease (4 sources) Dupuytren contracture of right palm; Translations: [Palmar fascial fibromatosis [Dupuytren]] Episodic Other fractures (20 sources) Fracture of spinous process of cervical vertebra; Translations: [Fracture of neck, unspecified, initial encounter] 09-14-2023 Episodic Other fractures (20 sources) Fracture of cervical spine; Translations: [Fracture of neck, unspecified, initial encounter] 09-14-2023 Episodic Other fractures (20 sources) Closed fracture of vertebral column; Translations: [Closed fracture of vertebra] 09-28-2023 Episodic Other fractures (20 sources) Closed fracture of fifth cervical vertebra; [...] Orthopnea; Translations: [Orthopnea] Onset: 4 Episodic Other lower respiratory disease (8 sources) Pleuritic pain; Translations: [Pleurodynia] 07-16-2024 Episodic Other lower respiratory disease (2 sources) Lower respiratory tract infection; Translations: [Unspecified acute lower respiratory infection] 08-30-2024 Episodic Other nervous system disorders (4 sources) Carpal tunnel syndrome; Translations: [Carpal tunnel syndrome, left upper limb] Chronic Other nervous system disorders (20 sources) Hip pain; Translations: [Other acute postprocedural pain] Onset: 3 Resolved: 4 05-03-2023 Episodic Comment on above: Problem List clean-u p per request of Phys. EHR Cmte Other nervous system disorders (7 sources) Other acute postprocedural pain; Translations: [Pain in joint, pelvic region and thigh] 05-03-2023 Episodic Other nutritional; endocrine; and metabolic disorders (1 source) Hypomagnesemia; Translations: [Hypomagnesemia] Onset: 4 Chronic Other screening for suspected conditions (not mental disorders or infectious disease) (20 sources) Raised cardiac enzyme or marker; Translations: [Other specified abnormal findings of blood chemistry] Onset: 3 04-28-2023 Episodic Comment on above: Problem List clean-u p per request of Phys. 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] 02-06-2024 Chronic Residual codes; unclassified (4 sources) Acquired total absence of pancreas; 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] 02-08-2024 Chronic Residual codes; unclassified (2 sources) Body mass index 20-24 - normal; Translations: [Body mass index (BMI) 20.0-20.9, adult] Onset: 3 08-16-2023 Episodic Skin and subcutaneous tissue infections (20 sources) Abscess of abdominal wall; Translations: [Cutaneous abscess of abdominal wall] Onset: 4 Resolved: 5 07-03-2024 Episodic Unclassified (1 source) CONTACT W/AND (SUSP) EXPOS COVID-19; Translations: [CONTACT W/AND (SUSP) EXPOS COVID-19] Onset: 2 Unclassified (1 source) High Blood Sugar Onset: 5 Unclassified (1 source) I25.10 - Atherosclerotic heart disease of [place] coronary artery without angina pectoris,I25.5 - Ischemic cardiomyopathy,R06.00 - Dyspnea, unspecified Past or Other Problems Problem Classification Problem Date Documented Da te Episodic/Chronic Abdominal pain (3 sources) Upper abdominal pain, unspecified; Translations: [UPPER ABDOMINAL PAIN, UNSPECIFIED] Onset: 01-02-2022 Episodic Deficiency and other anemia (1 source) Iron deficiency anemia, unspecified; Translations: [Iron deficiency anemia, unspecified] Onset: 03-10-2024 Episodic Diabetes mellitus without complication (20 sources) Insulin pump present; Translations: [Presence of insulin pump (external) (internal)] Onset: 05-02-2023 05-02-2023 Episodic Gastroduodenal ulcer (except hemorrhage) (20 sources) Acute gastric ulcer with perforation; Translations: [Acute gastric ulcer with perforation] Onset: 05-31-2024 Episodic Genitourinary symptoms and ill-defined conditions (20 sources) Hematuria, unspecified; Translations: [Blood in urine] Onset: 06-05-2022 Resolved: 02-05-2023 Episodic Immunizations and screening for infectious disease (20 sources) Needs influenza immunization; Translations: [Encounter for immunization] Onset: 05-19-2023 Resolved: 04-17-2024 04-17-2024 Episodic Mood disorders (20 sources) Mood disorders Onset: 02-05-2023 02-05-2023 Neoplasms of unspecified nature or uncertain behavior (20 sources) Benign neoplasm of pancreas; Translations: [Neoplasm of unspecified behavior of digestive system] Onset: 06-23-2018 Resolved: 02-05-2023 02-05-2023 Episodic Other connective tissue disease (20 sources) Dupuytren's contracture; Translations: [Palmar fascial fibromatosis [Dupuytren]] Onset: 02-05-2023 Resolved: 02-05-2023 02-05-2023 Episodic Other connective tissue disease (20 sources) Pain of right thigh; Translations: [Pain in right thigh] Onset: 05-19-2023 Resolved: 09-09-2023 09-09-2023 Episodic Other fractures (20 sources) Closed fracture of fourth cervical vertebra; Translations: [Unspecified nondisplaced fracture of fourth cervical vertebra, subsequent encounter for fracture with routine healing] Onset: 09-09-2023 Resolved: 05-31-2024 09-09-2023 Episodic Other lower respiratory disease (20 sources) Other nonspecific abnormal finding of lung field; Translations: [Other nonspecific abnormal finding of lung field] Onset: 02-05-2023 Resolved: 02-05-2023 02-05-2023 Episodic Other lower respiratory disease (6 sources) Pleurodynia; Translations: [Painful respiration] Onset: 07-16-2024 07-16-2024 Episodic Other nervous system disorders (20 sources) Carpal tunnel syndrome of left wrist; Translations: [Carpal tunnel syndrome, left upper limb] Onset: 02-28-2024 Resolved: 04-17-2024 04-17-2024 Chronic Pancreatic disorders (not diabetes) (20 sources) Pancreatic insufficiency; Translations: [Other specified diseases of pancreas] Onset: 04-03-2019 04-24-2024 Episodic Pathological fracture (20 sources) Fracture of bone of hip region; Translations: [Age-related osteoporosis with current pathological fracture, unspecified femur, sequela] Onset: 05-19-2023 Resolved: 05-31-2024 05-19-2023 Episodic Residual codes; unclassified (2 sources) Body mass index (BMI) 20.0-20.9, adult; Translations: [Body mass index (BMI) 20.0-20.9, adult] Onset: 06-23-2023 Episodic Septicemia (except in labor) (20 sources) Sepsis due to Escherichia coli; Translations: [Sepsis due to Escherichia coli [E. coli]] Onset: 05-02-2023 Resolved: 04-17-2024 04-17-2024 Episodic Substance-related disorders (20 sources) Smoker; Translations: [Nicotine dependence, unspecified, uncomplicated] Onset: 2018 Resolved: 04-17-2024 04-17-2024 Chronic Unclassified (2 sources) Onset: 05-25-2023 Resolved: 08-16-2023 05-25-2023 Results Test Name Value Interpretation Reference Range Facility GLUTAMIC AC DECARBOXYLASE AB Ordered By: Erick Peguero on 02-13-2025 Glutamate decarboxylase 65 Ab Qn (S) -5.0 Abnormal [facility] MLR HEMOGLOBIN A1Con 025 Glucose [Mass/Vol] 269 mg/dL [facility] HbA1c (Bld) [Mass fraction] 11 % High 4.5 - 6.2 % [facility] Comment on above: ADA RECOMMENDED LIMI T 4.0 - 6.0 ADA THERAPEUTIC TARGET < 7.0 ACTION SUGGESTED > 7.0 Interpretation and review of laboratory results Abnormal [facility] No Panel Informationon 02-13 Interpretation and review of laboratory results Abnormal [facility] GLUCOSE BLOODon 02-14-20 25 Glucose [Mass/Vol] 141 mg/dL High 74 - 106 mg/dL [facility] CNPNon 02-05-2025 CNPN Telephone (ENDOLN) ----- MANOLO VICKERS ([id number]) 1935 M Date Time Provider Department 02/05/25 AYANA ZAVALA ENDOLN During your visit today, we recorded the following information about you: Ayana Zavala APRN.TUBE BENDER HAND 02/05/2025 11:17 AM Signed Medicare requires a C-peptide (insulin level) on record for patient when filling insulin via Part B to use in insulin pump. I do not see one completed. Please have patient obtain fasting lab. His BG needs to be under 225 mg/dL in the morning for this to be an accurate reading. 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 - insulin pump cart,auto,BT,G6/7 (OMNIPOD 5 G6-G7 PODS, GEN 5,) crtg Change every 72 hours. - insulin glargine (LANTUS SOLOSTAR U-100 INSULIN) 100 unit/mL (3 mL) Inject 12 Units subcutaneously daily at bedtime. For use in case of pump failure - insulin aspart U-100 (NOVOLOG U-100 INSULIN ASPART) 100 unit/mL ADMINISTER PER PUMP (MAX DAILY 75 UNITS) - Insulin Ewing, Disposable, (BD ULTRA-FINE MARICHUY PEN NEEDLE) 32 gauge x 5/32 Use with insulin once daily in case of pump failure - dapagliflozin propanediol (FARXIGA) 10 mg tablet Take 1 tablet by mouth once daily. - spironolactone (ALDACTONE) 25 mg tablet Take 25 mg by mouth once daily. - atorvastatin (LIPITOR) 80 mg tablet Take 80 mg by mouth daily at bedtime. - tamsulosin (FLOMAX) 0.4 mg Take 0.4 mg by mouth. - Omeprazole Magnesium 20 mg tablet Take 20 mg by mouth. - metoprolol succinate ER (TOPROL XL) 50 mg 24 hr tablet Take 0.5 tablets by mouth every 12 hours. - PARoxetine (PAXIL) 40 mg tablet Take 40 mg by mouth every morning. - lisinopril 2.5 mg tablet Take 2.5 mg by mouth. - glucagon (GVOKE HYPOPEN 2-PACK) 1 mg/0.2 mL auto-injector Inject 1 mg subcutaneously as needed. - pxmnlh-bwluaihl-szukldz (CREON) 24,000-76,000 -120,000 unit cpDR Take 2 capsules by mouth three times daily with meals. and 1 with snacks (8/day) - folic acid/multivit-min/lutein (CENTRUM SILVER ORAL) Take by mouth once daily. - aspirin, enteric coated (ASPIRIN, ENTERIC COATED) 81 mg EC tablet Take 81 mg by mouth once daily. - cholecalciferol (VITAMIN D-3) 2,000 unit tablet Take 2,000 Units by mouth once daily. - cetirizine (ZYRTEC) 10 mg tablet Take 10 mg by mouth once daily. - Lactobac no.41/Bifidobact no.7 (PROBIOTIC-10 ORAL) Take by mouth once daily. - lutein-zeaxanthin 25-5 mg cap Take by mouth once daily. Problem List As Of Date 02/05/2025 Noted Resolved IPMN (intraductal papillary mucinous neoplasm) *06/23/2018 Encounter Status:Closed by AYANA ZAVALA on 02/05/25 Normal [facility] CT ANGIOGRAM CHESTon -08-[address] ANGIOGRAM CHEST CLINICAL HISTORY: Ch est pain. Technique: Spiral CTA acquisition of the [...] be exophytic cyst from the right kidney. IMPRESSION: No CT evidence of acute pulmonary embolism or other acute process in the thorax. Airway findings as discussed including retained secretions within the central airways. Partially imaged bilateral hydronephrosis. ELECTRONICALLY SIGNED BY: Howard Mae MD Normal Not Available Creatinineon 01-08-2025 Creatinine [Mass/Vol] 1.21 mg/dL 0.76 - 1.27 mg/dL [facility] Creatinine [Mass/Vol]on 12-12 GFR/1.73 sq M.predicted among non-blacks MDRD (S/P/Bld) [Vol rate/Area] 58 mL/min/{1.73_m2} Low 59 - PINF mL/min/1.7 3 [facility] Interpretation and review of laboratory results Abnormal [facility] Performed at: - [facility] [address] , [address], [place], [place] [id number] Orthopedic Specialist: Hilario Chew MD, Phone: [phone] [facility] XR CHEST 2 VIEWSon 5 XR CHEST 2 VIEWS TITLE OF EXAM: XR CH EST 2 VIEWS REASON FOR EXAM: Left pleuritic [...] signed in approved by the interpreting radiologist. Normal Not Available XR Chest 2 Viewson 5 TITLE OF EXAM: XR CH EST 2 VIEWS REASON FOR EXAM: Left pleuritic [...] signed in approved by the interpreting radiologist. Yuval Perdomo MD - 01/02/2025 TITLE OF EXAM: XR [...] signed in approved by the interpreting radiologist. [facility] Radiology Study observation (narrative) [facility] XR Chest 2 ViewsOrdered By: Yuval Gill on 01-02-2025 [facility] [employer] Work Phone: Issa 12-19-2024 [facility] Telephone (ENDOLN) ----- MANOLO VICKERS ([id number]) 1935 M Date Time Provider Department 12/19/24 AYANA ZAVALA During your visit today, we recorded the following information about you: Sharonda Felipe 12/19/2024 12:07 PM Signed Pt needs refill on sensors. Do not see on current med list. Pt uses [facility] pharmacy in [facility]. Insurance is not going to pay for this until 01/03. Spouse is requesting to speak to a nurse about getting an alternative until then. Please review and advise. Patient has been identified by name and birthdate. Duration of symptoms: N/A Person calling: self Call patient at: on cell [phone] (cell) Was an appointment scheduled: No Closing statement: Results or non-symptom based questions: Thank you for calling [facility], your call will be returned within the next business day. Ayana Hess APRN.KALANI 12/25/2024 8:04 AM Addendum Rx sent however patient obtains typically from [facility], are they still having issues obtaining from there? Erick Peguero LPN 12/27/2024 11:08 AM Signed Spoke to pharmacy, the sensors are ready for picking machine operator helper. Relayed message to patient's . She states that they do usually receive sensors from [facility] but they are having issues receiving them. The patient uses more that prescribed and paid for by insurance because they fall out. She will picking machine operator helper those at pharmacy , if there are any further issues she will contact our office. 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 - insulin pump cart,auto,BT,G6/7 (OMNIPOD 5 G6-G7 PODS, GEN 5,) crtg Change every 72 hours. - insulin glargine (LANTUS SOLOSTAR U-100 INSULIN) 100 unit/mL (3 mL) Inject 12 Units subcutaneously daily at bedtime. For use in case of pump failure - insulin aspart U-100 (NOVOLOG U-100 INSULIN ASPART) 100 unit/mL ADMINISTER PER PUMP (MAX DAILY 75 UNITS) - Insulin Ewing, Disposable, (BD ULTRA-FINE MARICHUY PEN NEEDLE) 32 gauge x 5/32 Use with insulin once daily in case of pump failure - dapagliflozin propanediol (FARXIGA) 10 mg tablet Take 1 tablet by mouth once daily. - spironolactone (ALDACTONE) 25 mg tablet Take 25 mg by mouth once daily. - atorvastatin (LIPITOR) 80 mg tablet Take 80 mg by mouth daily at bedtime. - tamsulosin (FLOMAX) 0.4 mg Take 0.4 mg by mouth. - Omeprazole Magnesium 20 mg tablet Take 20 mg by mouth. - metoprolol succinate ER (TOPROL XL) 50 mg 24 hr tablet Take 0.5 tablets by mouth every 12 hours. - PARoxetine (PAXIL) 40 mg tablet Take 40 mg by mouth every morning. - lisinopril 2.5 mg tablet Take 2.5 mg by mouth. - glucagon (GVOKE HYPOPEN 2-PACK) 1 mg/0.2 mL auto-injector Inject 1 mg subcutaneously as needed. - pifyrh-gihtgxfo-iomvxgx (CREON) 24,000-76,000 -120,000 unit cpDR Take 2 capsules by mouth three times daily with meals. and 1 with snacks (8/day) - folic acid/multivit-min/lutein (CENTRUM SILVER ORAL) Take by mouth once daily. - aspirin, enteric coated (ASPIRIN, ENTERIC COATED) 81 mg EC tablet Take 81 mg by mouth once daily. - cholecalciferol (VITAMIN D-3) 2,000 unit tablet Take 2,000 Units by mouth once daily. - cetirizine (ZYRTEC) 10 mg tablet Take 10 mg by mouth once daily. - Lactobac no.41/Bifidobact no.7 (PROBIOTIC-10 ORAL) Take by mouth once daily. - lutein-zeaxanthin 25-5 mg cap Take by mouth once daily. Problem List As Of Date 12/19/2024 Noted Resolved IPMN (intraductal papillary mucinous neoplasm) *06/23/2018 Prescriptions ordered this encounter Disp Refills Start End [employer]7 SENSOR DEVICE 3 ea* 0 12/25/2024 Sig: Change every 10 days. Encounter Status:Closed by AYANA ZAVALA on 12/25/24 Normal [facility] CNOVon 10-26-2024 CNOV Office Visit (ENDOLN ) ----- MANOLO VICKERS ([id number]) 1935 M Date Time Provider Department 10/26/24 12:15 PM AYANA ZAVALA ENDOLN During your visit today, we recorded the following information about you: Pulse Blood pressure Weight Height 60/minute 163/80 61 kg 1.778 m Ayana Zavala APRN.TUBE BENDER HAND 10/26/2024 1:11 PM Signed Endocrinology Follow Up History of Present Illness Manolo Vickers is a 89 year old male presents today for follow up of DM Type 1. Here with . At [facility] 09/25/2024, basal rate settings were changed, sensor was reconnected with pump, and he was resumed in Automated Mode. At that time, labs revealed BG 614 mg/dL, anion gap 17 (with normal CO2 of 24). Patient was advised to go to the ER. When he was seen in the ER, sugar had normalized to the mid 100s and he was discharged home. Since then, sugars initially improved, but he has since had several issues. Had delayed shipment of CGMs from his supplier but did ultimately receive. He also had a pod failure recently and needed to change this. He has been following up closely with [facility]. Reports the past few weeks he has been doing ok with the pump. He is not currently in Automated Mode. He is not sure why he is not. His sensor is connected with his pump. He was previosly on Jardiance for CHF but this was d/c due to hypotension. Farixga was started by PCP 08/2024 instead. He has been on this for two months. just picked up refill of this and it was $200 for a 30 day supply. 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 No history of diabetes prior to this. He reports taking Lantus 12 units daily at bedtime in addition to his pump and has been doing this for awhile. He takes manual boluses for breakfast, lunch and dinner (10-8-7 units). He does not know how to carb count. He has significant fluctuations in his blood sugar, with frequent hypoglycemia typically overnight. He is eating more frequently to keep his glucose up and then having elevations later in the day. EMS has been called several times due to his low glucose. He does not have warning symptoms of his low blood sugars. Family reports they can usually have him correct with juice or honey but he is sometimes confused during low blood sugar episodes. Upgraded from Omnipod DASH to Omnipod 5 on 09/04/24. Date of Diagnosis: 2019 Last HbA1c: Hemoglobin A1C (POCT) (%) Date Value 10/26/2024 12.0 07/06/2024 10.1 Family history of diabetes includes none. Complications Microvascular: none Macrovascular: CAD s/p PCI Comorbidities: HTN, COPD, CAD, CHF, ICM, BPH, IPMN, pancreatitis Health Maintenance Topics Topic Date Due Dilated Retinal Exam Never done Diabetic Foot Exam Never done Prior DM Medications: Jardiance- stopped by cardiology Current DM Related Medications: Current Medications 10/26/2024 DIABETES THERAPIES Medication Dosage Pharm Subclass dapagliflozin propanediol (FARXIGA) 10 mg tablet Take 1 tablet by mouth once daily. Antihyperglycemic - Sodium Glucose Cotransporter-2 (SGLT2) Inhibitors insulin aspart U-100 (NOVOLOG U-100 INSULIN ASPART) 100 unit/mL ADMINISTER PER PUMP (MAX DAILY 75 UNITS) Insulin Analogs - Rapid Acting insulin glargine (LANTUS SOLOSTAR U-100 INSULIN) 100 unit/mL (3 mL) Inject 12 Units subcutaneously daily at bedtime. For use in case of pump failure Insulin Analogs - Long Acting CARDIOVASCULAR Medication Dosage Pharm Subclass atorvastatin (LIPITOR) 80 mg tablet Take 80 mg by mouth daily at bedtime. Antihyperlipidemic - HMG CoA Reductase Inhibitors (statins) lisinopril 2.5 mg tablet Take 2.5 mg by mouth. MIS Inhibitors metoprolol succinate ER (TOPROL XL) 50 mg 24 hr tablet Take 0.5 tablets by mouth every 12 hours. Beta Blockers Cardiac Selective DIURETICS Medication Dosage Pharm Subclass spironolactone (ALDACTONE) 25 mg tablet Take 25 mg by mouth once daily. Diuretic - Aldosterone Receptor Antagonist, Non-selective ANTI-PLATELET THERAPIES Medication Dosage Pharm Subclass aspirin, enteric coated (ASPIRIN, ENTERIC COATED) 81 mg EC tablet Take 81 mg by mouth once daily. Salicylate Analgesics ASPIRIN Medication Dosage Pharm Subclass aspirin, enteric coated (ASPIRIN, ENTERIC COATED) 81 mg EC tablet Take 81 mg by mouth once daily. Salicylate Analgesics OTHER Medication Dosage Pharm Subclass cetirizine (ZYRTEC) 10 mg tablet Take 10 mg by mouth once daily. Antihistamines - 2nd Generation cholecalciferol (VITAMIN D-3) 2,000 unit tablet Take 2,000 Units by mouth once daily. Vitamins - D Derivatives folic acid/multivit-min/lutein (CENTRUM SILVER ORAL) Take by mouth once daily. Multivitamin and Mineral Combinations glucagon (GVOKE HYPOPEN 2-PACK) 1 mg/0.2 mL auto-injector Inject 1 mg subcutaneously as n (more content not included)... Normal [facility] HEMOGLOBIN A1C (POC)on 10-26 HbA1c (Bld) [Mass fraction] 12 % Abnormal 4.3 - 5.6 % [facility] Comment on above: Location:[facility] [place], [place], [address] Point of care (POC) Hemoglobin A1c (HGBA1C) [...] specific diabetes management situations: The POC device healthcare applications analyst provides a normal range of 4.2% to 6.5% for the HGBA1C POC test. However, the [place] [employer] guidelines indicate that patients with [...] anemia) that alter red blood cell lifespan. Interpretation and review of laboratory results Abnormal [facility] BASIC METABOLIC PANELon 10-23-2024 Anion gap [Moles/Vol] 12.4 mmol/L [facility] Calcium [Mass/Vol] 8.2 mg/dL Low 8.5 - 10. 1 mg/dL [facility] Chloride [Moles/Vol] 101 mmol/L 98 - 10 7 mmol/L [facility] CO2 [Moles/Vol] 27.9 mmol/L 21.0 - 32.0 mmol/L [facility] Creatinine [Mass/Vol] 1.41 mg/dL High 0.70 - 1.30 mg/dL [facility] GFR/1.73 sq M.predicted CKD-EPI (S/P/Bld) [Vol rate/Area] 58 Low >=60 mL/min/1.7 3m 2 [facility] Glucose [Mass/Vol] 355 mg/dL High 74 - 106 mg/dL [facility] Potassium [Moles/Vol] 4.3 mmol/L 3.5 - 5.1 mmol/L [facility] Sodium [Moles/Vol] 137 mmol/L 136 - 145 mmol/L [facility] TBH EGFR-NON AF SENEGALESE 48 Low >=60 mL/min/1.7 3m 2 [facility] Urea nitrogen [Mass/Vol] 31 mg/dL High 7.0 - 18.0 mg/dL [facility] Urea nitrogen/Creatinine [Mass ratio] 22 mg/mg [facility] ALL PRO BNPon 10-23-2024 NT PRO B TYPE NATRIURETIC PEPT 6244 pg/mL Critically high NINF - 1800.0 pg/mL [facility] Comment on above: RESULTS CALLED TO Be karrie Sandoval RN No Panel Informationon 10-23 Interpretation and review of laboratory results Abnormal [facility] CNPNon 10-13-2024 JEVON Telephone ([facility]) ----- MANOLO VICKERS ([id number]) 1935 M Date Time Provider Department 10/13/24 GAYE MATA During your visit today, we recorded the following information about you: Gaye Mata, RN 10/13/2024 8:13 AM Signed LM for pt to return call. Patient appears to now be connected to the sensor. Advised how to treat hypoglycemia. Recommended see educator for appt to review pump and sensor operation Allergies As of Date: 10/13/2024 (No Known Allergies) Date Reviewed: 09/25/2024 Reviewed by: Ayana Zavala APRN.TUBE BENDER HAND - Fully Assessed Reason for Visit: Omnipod/Dexcom issues [Other] Prescriptions as of 10/13/2024 - insulin glargine (LANTUS SOLOSTAR U-100 INSULIN) 100 unit/mL (3 mL) Inject 12 Units subcutaneously daily at bedtime. For use in case of pump failure - insulin aspart U-100 (NOVOLOG U-100 INSULIN ASPART) 100 unit/mL ADMINISTER PER PUMP (MAX DAILY 75 UNITS) - insulin pump cart,auto,BT,G6/7 (OMNIPOD 5 G6-G7 PODS, GEN 5,) crtg Change every 72 hours. - Insulin Ewing, Disposable, (BD ULTRA-FINE MARICHUY PEN NEEDLE) 32 gauge x 5/32 Use with insulin once daily in case of pump failure - dapagliflozin propanediol (FARXIGA) 10 mg tablet Take 1 tablet by mouth once daily. - spironolactone (ALDACTONE) 25 mg tablet Take 25 mg by mouth once daily. - atorvastatin (LIPITOR) 80 mg tablet Take 80 mg by mouth daily at bedtime. - tamsulosin (FLOMAX) 0.4 mg Take 0.4 mg by mouth. - Omeprazole Magnesium 20 mg tablet Take 20 mg by mouth. - metoprolol succinate ER (TOPROL XL) 50 mg 24 hr tablet Take 0.5 tablets by mouth every 12 hours. - PARoxetine (PAXIL) 40 mg tablet Take 40 mg by mouth every morning. - lisinopril 2.5 mg tablet Take 2.5 mg by mouth. - glucagon (GVOKE HYPOPEN 2-PACK) 1 mg/0.2 mL auto-injector Inject 1 mg subcutaneously as needed. - lowcdz-kcurxmes-lcpprcg (CREON) 24,000-76,000 -120,000 unit cpDR Take 2 capsules by mouth three times daily with meals. and 1 with snacks (8/day) - folic acid/multivit-min/lutein (CENTRUM SILVER ORAL) Take by mouth once daily. - aspirin, enteric coated (ASPIRIN, ENTERIC COATED) 81 mg EC tablet Take 81 mg by mouth once daily. - cholecalciferol (VITAMIN D-3) 2,000 unit tablet Take 2,000 Units by mouth once daily. - cetirizine (ZYRTEC) 10 mg tablet Take 10 mg by mouth once daily. - Lactobac no.41/Bifidobact no.7 (PROBIOTIC-10 ORAL) Take by mouth once daily. - lutein-zeaxanthin 25-5 mg cap Take by mouth once daily. Problem List As Of Date 10/13/2024 Noted Resolved IPMN (intraductal papillary mucinous neoplasm) *06/23/2018 Encounter Status:Closed by GAYE MATA on 10/13/24 [facility] 10-11-2024 [facility] Telephone (DEMBHT) ----- MANOLO VICKERS ([id number]) 1935 M Date Time Provider Department 10/11/24 GAYE MATA During your visit today, we recorded the following information about you: Gaye Mata, KARIN 10/11/2024 4:23 PM Signed Patient's sent message patient had received Dexcom G7 CGM sensors from [place] last night. Patient applied Omnipod 6 insulin pump yesterday but is now getting a pod failure notice. Upon review of patient's [place] report, patient appears to be connected to the pod and CGM, however is having some lows around or below 50. Left message on how to not overestimate carb intake, treat hypoglycemia with 4 oz juice or hard candy, use Gvoke emergency pen and call 911 if needed if blood sugars continue to drop under 50 and are not coming up after 3 treatments. Recommended patient and return to educator for additional education on the pump and CGM in the next few days. Allergies As of Date: 10/11/2024 (No Known Allergies) Date Reviewed: 09/25/2024 Reviewed by: Ayana Zavala APRN.TUBE BENDER HAND - Fully Assessed Reason for Visit: Omnipod 5/Dexcom G7 issues [Other] Prescriptions as of 10/11/2024 - insulin glargine (LANTUS SOLOSTAR U-100 INSULIN) 100 unit/mL (3 mL) Inject 12 Units subcutaneously daily at bedtime. For use in case of pump failure - insulin aspart U-100 (NOVOLOG U-100 INSULIN ASPART) 100 unit/mL ADMINISTER PER PUMP (MAX DAILY 75 UNITS) - insulin pump cart,auto,BT,G6/7 (OMNIPOD 5 G6-G7 PODS, GEN 5,) crtg Change every 72 hours. - Insulin Ewing, Disposable, (BD ULTRA-FINE MARICHUY PEN NEEDLE) 32 gauge x 5/32 Use with insulin once daily in case of pump failure - dapagliflozin propanediol (FARXIGA) 10 mg tablet Take 1 tablet by mouth once daily. - spironolactone (ALDACTONE) 25 mg tablet Take 25 mg by mouth once daily. - atorvastatin (LIPITOR) 80 mg tablet Take 80 mg by mouth daily at bedtime. - tamsulosin (FLOMAX) 0.4 mg Take 0.4 mg by mouth. - Omeprazole Magnesium 20 mg tablet Take 20 mg by mouth. - metoprolol succinate ER (TOPROL XL) 50 mg 24 hr tablet Take 0.5 tablets by mouth every 12 hours. - PARoxetine (PAXIL) 40 mg tablet Take 40 mg by mouth every morning. - lisinopril 2.5 mg tablet Take 2.5 mg by mouth. - glucagon (GVOKE HYPOPEN 2-PACK) 1 mg/0.2 mL auto-injector Inject 1 mg subcutaneously as needed. - xmjtbl-jhdnlpxo-mgqjugs (CREON) 24,000-76,000 -120,000 unit cpDR Take 2 capsules by mouth three times daily with meals. and 1 with snacks (8/day) - folic acid/multivit-min/lutein (CENTRUM SILVER ORAL) Take by mouth once daily. - aspirin, enteric coated (ASPIRIN, ENTERIC COATED) 81 mg EC tablet Take 81 mg by mouth once daily. - cholecalciferol (VITAMIN D-3) 2,000 unit tablet Take 2,000 Units by mouth once daily. - cetirizine (ZYRTEC) 10 mg tablet Take 10 mg by mouth once daily. - Lactobac no.41/Bifidobact no.7 (PROBIOTIC-10 ORAL) Take by mouth once daily. - lutein-zeaxanthin 25-5 mg cap Take by mouth once daily. Problem List As Of Date 10/11/2024 Noted Resolved IPMN (intraductal papillary mucinous neoplasm) *06/23/2018 Encounter Status:Closed by GAYE MATA on 10/11/24 [facility] JEVON Telephone (ENDOLN) ----- MANOLO VICKERS ([id number]) 1935 M Date Time Provider Department 10/11/24 AYANA ZAVALA During your visit today, we recorded the following information about you: Ayana Zavala APRN.CNP 10/11/2024 8:08 AM Signed Received notice from pharmacy PA is request for Ominpod 5 pods. Please complete. Ruchi Rhoades 10/11/2024 11:37 AM Signed Initiated PA for insulin pump cart,auto,BT,G6/7 (OMNIPOD 5 G6-G7 PODS, GEN 5,) crtg through [employer] Medicare Chart notes attached Questions Completed Waiting for determination Ruchi Prior Dairy Nutrition Consultant Endocrinology and Metabolism [place] Ruchi Rhoades 10/11/2024 11:37 AM Signed Allergies As of Date: 10/11/2024 (No Known Allergies) Date Reviewed: 09/25/2024 Reviewed by: Ayana Zavala APRN.CNP - Fully Assessed Reason for Visit: Insurance Authorization [[id number]] Cmt: insulin pump cart,auto,BT,G6/7 (OMNIPOD 5 G6-G7 PODS, GEN 5,) crtg Prescriptions as of 10/11/2024 - insulin glargine (LANTUS SOLOSTAR U-100 INSULIN) 100 unit/mL (3 mL) Inject 12 Units subcutaneously daily at bedtime. For use in case of pump failure - insulin aspart U-100 (NOVOLOG U-100 INSULIN ASPART) 100 unit/mL ADMINISTER PER PUMP (MAX DAILY 75 UNITS) - insulin pump cart,auto,BT,G6/7 (OMNIPOD 5 G6-G7 PODS, GEN 5,) crtg Change every 72 hours. - Insulin Ewing, Disposable, (BD ULTRA-FINE MARICHUY PEN NEEDLE) 32 gauge x Use with insulin once daily in case of pump failure - dapagliflozin propanediol (FARXIGA) 10 mg tablet Take 1 tablet by mouth once daily. - spironolactone (ALDACTONE) 25 mg tablet Take 25 mg by mouth once daily. - atorvastatin (LIPITOR) 80 mg tablet Take 80 mg by mouth daily at bedtime. - tamsulosin (FLOMAX) 0.4 mg Take 0.4 mg by mouth. - Omeprazole Magnesium 20 mg tablet Take 20 mg by mouth. - metoprolol succinate ER (TOPROL XL) 50 mg 24 hr tablet Take 0.5 tablets by mouth every 12 hours. - PARoxetine (PAXIL) 40 mg tablet Take 40 mg by mouth every morning. - lisinopril 2.5 mg tablet Take 2.5 mg by mouth. - glucagon (GVOKE HYPOPEN 2-PACK) 1 mg/0.2 mL auto-injector Inject 1 mg subcutaneously as needed. - bhtbql-yrwjfuzz-ipexgpm (CREON) 24,000-76,000 -120,000 unit cpDR Take 2 capsules by mouth three times daily with meals. and 1 with snacks (8/day) - folic acid/multivit-min/lutein (CENTRUM SILVER ORAL) Take by mouth once daily. - aspirin, enteric coated (ASPIRIN, ENTERIC COATED) 81 mg EC tablet Take 81 mg by mouth once daily. - cholecalciferol (VITAMIN D-3) 2,000 unit tablet Take 2,000 Units by mouth once daily. - cetirizine (ZYRTEC) 10 mg tablet Take 10 mg by mouth once daily. - Lactobac no.41/Bifidobact no.7 (PROBIOTIC-10 ORAL) Take by mouth once daily. - lutein-zeaxanthin 25-5 mg cap Take by mouth once daily. Problem List As Of Date 10/11/2024 Noted Resolved IPMN (intraductal papillary mucinous neoplasm) *06/23/2018 Encounter Status:Closed by AYANA ZAVALA on 10/11/24 [facility] MANOLO VICK[facility] ([id number]) 1935 M Date Time Provider Department 10/10/24 GAYE MATA During your visit today, we recorded the following information about you: Gaye Mata, RN 10/10/2024 9:36 AM Signed Called and spoke with patient's . Patient called educator last week stating he has been having issues getting his Dexcom G7 CGM sensors from his [employer] company, [employer]. Patient states he called them a few times and they promised to ship out the sensors last week, however, patient has not received them. Patient and were both advised to contact the provider's office to see if there was any delays or issues regarding paperwork they were waiting on but they have not done so as of this date. Patient is not connected to the Omnipod 5 pump for the last few days. I offered to help them get reconnected to the pump once the Dexcom G7 sensors arrive. Patient's stated patient is frustrated and is considering going back to [facility]. She has my contact information to call for appointment to get him reconnected to the pump when ready. Message forwarded to patient's provider office for follow up. Erick Peguero LPN 10/10/2024 3:40 PM Signed Spoke to [employer] Rep, he reported that the Dexcom supplies should be delivered today vis [employer]. Tracking nbr [id number]. According to his notes it was out for delivery at 5:48 am 10/10/2024. I attempted to reach patient at both nbrs listed, no answer. VM left with update. I will send a [employer] message as well. Allergies As of Date: 10/10/2024 (No Known Allergies) Date Reviewed: 09/25/2024 Reviewed by: Ayana Zavala APRN.TUBE BENDER HAND - Fully Assessed Reason for Visit: Dexcom G7 CGM supply issues [Other] Prescriptions as of 10/10/2024 - insulin glargine (LANTUS SOLOSTAR U-100 INSULIN) 100 unit/mL (3 mL) Inject 12 Units subcutaneously daily at bedtime. For use in case of pump failure - insulin aspart U-100 (NOVOLOG U-100 INSULIN ASPART) 100 unit/mL ADMINISTER PER PUMP (MAX DAILY 75 UNITS) - insulin pump cart,auto,BT,G6/7 (OMNIPOD 5 G6-G7 PODS, GEN 5,) crtg Change every 72 hours. - Insulin Ewing, Disposable, (BD ULTRA-FINE MARICHUY PEN NEEDLE) 32 gauge x 5/32 Use with insulin once daily in case of pump failure - dapagliflozin propanediol (FARXIGA) 10 mg tablet Take 1 tablet by mouth once daily. - spironolactone (ALDACTONE) 25 mg tablet Take 25 mg by mouth once daily. - atorvastatin (LIPITOR) 80 mg tablet Take 80 mg by mouth daily at bedtime. - tamsulosin (FLOMAX) 0.4 mg Take 0.4 mg by mouth. - Omeprazole Magnesium 20 mg tablet Take 20 mg by mouth. - metoprolol succinate ER (TOPROL XL) 50 mg 24 hr tablet Take 0.5 tablets by mouth every 12 hours. - PARoxetine (PAXIL) 40 mg tablet Take 40 mg by mouth every morning. - lisinopril 2.5 mg tablet Take 2.5 mg by mouth. - glucagon (GVOKE HYPOPEN 2-PACK) 1 mg/0.2 mL auto-injector Inject 1 mg subcutaneously as needed. - aiyfwm-yozehwmc-akiqvin (CREON) 24,000-76,000 -120,000 unit cpDR Take 2 capsules by mouth three times daily with meals. and 1 with snacks (8/day) - folic acid/multivit-min/lutein (CENTRUM SILVER ORAL) Take by mouth once daily. - aspirin, enteric coated (ASPIRIN, ENTERIC COATED) 81 mg EC tablet Take 81 mg by mouth once daily. - cholecalciferol (VITAMIN D-3) 2,000 unit tablet Take 2,000 Units by mouth once daily. - cetirizine (ZYRTEC) 10 mg tablet Take 10 mg by mouth once daily. - Lactobac no.41/Bifidobact no.7 (PROBIOTIC-10 ORAL) Take by mouth once daily. - lutein-zeaxanthin 25-5 mg cap Take by mouth once daily. Problem List As Of Date 10/10/2024 Noted Resolved IPMN (intraductal papillary mucinous neoplasm) *06/23/2018 Encounter Status:Closed [facility] Telephone ([facility]) ----- MANOLO VICKERS ([id number]) 1935 M Date Time Provider Department 10/04/24 GAYE MATASarah During your visit today, we recorded the following information about you: Allergies As of Date: 10/04/2024 (No Known Allergies) Date Reviewed: 09/25/2024 Reviewed by: Ayana Zavala APRN.TUBE BENDER HAND - Fully Assessed Reason for Visit: Omnipod 5/Dexcom help [Other] Prescriptions as of 10/04/2024 - dapagliflozin propanediol (FARXIGA) 10 mg tablet Take 1 tablet by mouth once daily. - spironolactone (ALDACTONE) 25 mg tablet Take 25 mg by mouth once daily. - atorvastatin (LIPITOR) 80 mg tablet Take 80 mg by mouth daily at bedtime. - insulin aspart U-100 (NOVOLOG U-100 INSULIN ASPART) 100 unit/mL ADMINISTER PER PUMP (MAX DAILY 60 UNITS) - tamsulosin (FLOMAX) 0.4 mg Take 0.4 mg by mouth. - Omeprazole Magnesium 20 mg tablet Take 20 mg by mouth. - metoprolol succinate ER (TOPROL XL) 50 mg 24 hr tablet Take 0.5 tablets by mouth every 12 hours. - PARoxetine (PAXIL) 40 mg tablet Take 40 mg by mouth every morning. - lisinopril 2.5 mg tablet Take 2.5 mg by mouth. - glucagon (GVOKE HYPOPEN 2-PACK) 1 mg/0.2 mL auto-injector Inject 1 mg subcutaneously as needed. - insulin glargine (LANTUS) 100 unit/mL injection In case of pump failure - insulin pump cart,auto,BT,G6/7 (OMNIPOD 5 G6-G7 PODS, GEN 5,) crtg Change every 72 hours. - yxkqov-slkmalyc-abawdvv (CREON) 24,000-76,000 -120,000 unit cpDR Take 2 capsules by mouth three times daily with meals. and 1 with snacks (8/day) - folic acid/multivit-min/lutein (CENTRUM SILVER ORAL) Take by mouth once daily. - aspirin, enteric coated (ASPIRIN, ENTERIC COATED) 81 mg EC tablet Take 81 mg by mouth once daily. - cholecalciferol (VITAMIN D-3) 2,000 unit tablet Take 2,000 Units by mouth once daily. - cetirizine (ZYRTEC) 10 mg tablet Take 10 mg by mouth once daily. - Lactobac no.41/Bifidobact no.7 (PROBIOTIC-10 ORAL) Take by mouth once daily. - lutein-zeaxanthin 25-5 mg cap Take by mouth once daily. Problem List As Of Date 10/04/2024 Noted Resolved IPMN (intraductal papillary mucinous neoplasm) *06/23/2018 Encounter Status:Closed by GAYE MATA on 10/04/24 [facility] MANOL[facility] VICKERS ([id number]) 1935 M Date Time Provider Department 10/04/24 GAYE MATA During your visit today, we recorded the following information about you: Gaye Mata, RN 10/04/2024 4:41 PM Signed Patent called stating that he is out of Dexcom G7 CGM sensors and has been having difficulty getting the shipment from [employer], his DME supplier. Patient states he made 3 calls to them this week, one including a checking department supervisor at [facility], who promised that the shipment was sent and would be received in a day or two. Advised patient to contact his provider's office to see if they are able to help as they submitted all the original paperwork to [facility] back in August and I am not sure if they are waiting on something from the office. Patient was also told to see if the provider's office had Dexcom G7 sensor samples to provide until his shipment arrives so he does not have to drive out to [facility]. Patient verbalized understanding. Allergies As of Date: 10/04/2024 (No Known Allergies) Date Reviewed: 09/25/2024 Reviewed by: Ayana Zavala APRN.TUBE BENDER HAND - Fully Assessed Reason for Visit: Dexcom G7 CGM supply issues [Other] Prescriptions as of 10/04/2024 - insulin glargine (LANTUS SOLOSTAR U-100 INSULIN) 100 unit/mL (3 mL) Inject 12 Units subcutaneously daily at bedtime. For use in case of pump failure - insulin aspart U-100 (NOVOLOG U-100 INSULIN ASPART) 100 unit/mL ADMINISTER PER PUMP (MAX DAILY 75 UNITS) - insulin pump cart,auto,BT,G6/7 (OMNIPOD 5 G6-G7 PODS, GEN 5,) crtg Change every 72 hours. - dapagliflozin propanediol (FARXIGA) 10 mg tablet Take 1 tablet by mouth once daily. - spironolactone (ALDACTONE) 25 mg tablet Take 25 mg by mouth once daily. - atorvastatin (LIPITOR) 80 mg tablet Take 80 mg by mouth daily at bedtime. - tamsulosin (FLOMAX) 0.4 mg Take 0.4 mg by mouth. - Omeprazole Magnesium 20 mg tablet Take 20 mg by mouth. - metoprolol succinate ER (TOPROL XL) 50 mg 24 hr tablet Take 0.5 tablets by mouth every 12 hours. - PARoxetine (PAXIL) 40 mg tablet Take 40 mg by mouth every morning. - lisinopril 2.5 mg tablet Take 2.5 mg by mouth. - glucagon (GVOKE HYPOPEN 2-PACK) 1 mg/0.2 mL auto-injector Inject 1 mg subcutaneously as needed. - lgshse-zibdmiqi-uqkxdtg (CREON) 24,000-76,000 -120,000 unit cpDR Take 2 capsules by mouth three times daily with meals. and 1 with snacks (8/day) - folic acid/multivit-min/lutein (CENTRUM SILVER ORAL) Take by mouth once daily. - aspirin, enteric coated (ASPIRIN, ENTERIC COATED) 81 mg EC tablet Take 81 mg by mouth once daily. - cholecalciferol (VITAMIN D-3) 2,000 unit tablet Take 2,000 Units by mouth once daily. - cetirizine (ZYRTEC) 10 mg tablet Take 10 mg by mouth once daily. - Lactobac no.41/Bifidobact no.7 (PROBIOTIC-10 ORAL) Take by mouth once daily. - lutein-zeaxanthin 25-5 mg cap Take by mouth once daily. Problem List As Of Date 10/04/2024 Noted Resolved IPMN (intraductal papillary mucinous neoplasm) *06/23/2018 Encounter Status:Closed by GAYE MATA on 10/04/24 [facility] 09-27-2024 [facility] Telephone (ELIZABETHT) ----- MANOLO VICKERS ([id number]) 1935 M Date Time Provider Department 09/27/24 GAYE MATA During your visit today, we recorded the following information about you: Allergies As of Date: 09/27/2024 (No Known Allergies) Date Reviewed: 09/25/2024 Reviewed by: Ayana Zavala APRN.TUBE BENDER HAND - Fully Assessed Reason for Visit: Omnipod 5 pump follow up call [Other] Prescriptions as of 09/27/2024 - dapagliflozin propanediol (FARXIGA) 10 mg tablet Take 1 tablet by mouth once daily. - spironolactone (ALDACTONE) 25 mg tablet Take 25 mg by mouth once daily. - atorvastatin (LIPITOR) 80 mg tablet Take 80 mg by mouth daily at bedtime. - insulin aspart U-100 (NOVOLOG U-100 INSULIN ASPART) 100 unit/mL ADMINISTER PER PUMP (MAX DAILY 60 UNITS) - tamsulosin (FLOMAX) 0.4 mg Take 0.4 mg by mouth. - Omeprazole Magnesium 20 mg tablet Take 20 mg by mouth. - metoprolol succinate ER (TOPROL XL) 50 mg 24 hr tablet Take 0.5 tablets by mouth every 12 hours. - PARoxetine (PAXIL) 40 mg tablet Take 40 mg by mouth every morning. - lisinopril 2.5 mg tablet Take 2.5 mg by mouth. - glucagon (GVOKE HYPOPEN 2-PACK) 1 mg/0.2 mL auto-injector Inject 1 mg subcutaneously as needed. - insulin glargine (LANTUS) 100 unit/mL injection In case of pump failure - insulin pump cart,auto,BT,G6/7 (OMNIPOD 5 G6-G7 PODS, GEN 5,) crtg Change every 72 hours. - eacanv-btrmqusy-jpzkvig (CREON) 24,000-76,000 -120,000 unit cpDR Take 2 capsules by mouth three times daily with meals. and 1 with snacks (8/day) - folic acid/multivit-min/lutein (CENTRUM SILVER ORAL) Take by mouth once daily. - aspirin, enteric coated (ASPIRIN, ENTERIC COATED) 81 mg EC tablet Take 81 mg by mouth once daily. - cholecalciferol (VITAMIN D-3) 2,000 unit tablet Take 2,000 Units by mouth once daily. - cetirizine (ZYRTEC) 10 mg tablet Take 10 mg by mouth once daily. - Lactobac no.41/Bifidobact no.7 (PROBIOTIC-10 ORAL) Take by mouth once daily. - lutein-zeaxanthin 25-5 mg cap Take by mouth once daily. Problem List As Of Date 09/27/2024 Noted Resolved IPMN (intraductal papillary mucinous neoplasm) *06/23/2018 Encounter Status:Closed by GAYE MATA on 09/27/[facility] FREDDYMANOLO OSBORN ([id number]) 1935 M Date Time Provider Department 09/27/24 [facility] your visit today, we recorded the following information about you: Gaye Mata RN 09/27/2024 1:23 PM Signed In error Allergies As of Date: 09/27/2024 (No Known Allergies) Date Reviewed: 09/25/2024 Reviewed by: Ayana Zavala APRN.TUBE BENDER HAND - Fully Assessed Prescriptions as of 09/27/2024 - dapagliflozin propanediol (FARXIGA) 10 mg tablet Take 1 tablet by mouth once daily. - spironolactone (ALDACTONE) 25 mg tablet Take 25 mg by mouth once daily. - atorvastatin (LIPITOR) 80 mg tablet Take 80 mg by mouth daily at bedtime. - insulin aspart U-100 (NOVOLOG U-100 INSULIN ASPART) 100 unit/mL ADMINISTER PER PUMP (MAX DAILY 60 UNITS) - tamsulosin (FLOMAX) 0.4 mg Take 0.4 mg by mouth. - Omeprazole Magnesium 20 mg tablet Take 20 mg by mouth. - metoprolol succinate ER (TOPROL XL) 50 mg 24 hr tablet Take 0.5 tablets by mouth every 12 hours. - PARoxetine (PAXIL) 40 mg tablet Take 40 mg by mouth every morning. - lisinopril 2.5 mg tablet Take 2.5 mg by mouth. - glucagon (GVOKE HYPOPEN 2-PACK) 1 mg/0.2 mL auto-injector Inject 1 mg subcutaneously as needed. - insulin glargine (LANTUS) 100 unit/mL injection In case of pump failure - insulin pump cart,auto,BT,G6/7 (OMNIPOD 5 G6-G7 PODS, GEN 5,) crtg Change every 72 hours. - gnsrhy-jykeqsha-itifuav (CREON) 24,000-76,000 -120,000 unit cpDR Take 2 capsules by mouth three times daily with meals. and 1 with snacks (8/day) - folic acid/multivit-min/lutein (CENTRUM SILVER ORAL) Take by mouth once daily. - aspirin, enteric coated (ASPIRIN, ENTERIC COATED) 81 mg EC tablet Take 81 mg by mouth once daily. - cholecalciferol (VITAMIN D-3) 2,000 unit tablet Take 2,000 Units by mouth once daily. - cetirizine (ZYRTEC) 10 mg tablet Take 10 mg by mouth once daily. - Lactobac no.41/Bifidobact no.7 (PROBIOTIC-10 ORAL) Take by mouth once daily. - lutein-zeaxanthin 25-5 mg cap Take by mouth once daily. Problem List As Of Date 09/27/2024 Noted Resolved IPMN (intraductal papillary mucinous neoplasm) *06/23/2018 Encounter Status:Closed by GAYE MATA on 09/27/24 [facility] 09-26-2024 [facility] Telephone (ENDOLN) ----- MANOLO VICKERS ([id number]) 1935 M Date Time Provider Department 09/26/24 AYANA ZAVALA ENDOLN During your visit today, we recorded the following information about you: Ayana Zavala APRN.TUBE BENDER HAND 09/26/2024 7:40 AM Signed Received page regarding critical lab result of glucose 614 mg/dL. 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 Please call patient and instruct him to be seen in the ER immediately. Erick Peguero LPN 09/26/2024 7:52 AM Signed Attempted to reach patient at both numbers listed in demo. Left urgent messages on both Eric Cara, KARIN 09/26/2024 8:20 AM Signed Pt identified by name and Pt given message below Stated understanding will take pt to [facility] Advised to f/u with endo upon release When pt/ call for f/u please obtain permission to speak with re: results / medical info Pt was not available to obtain permission but based on emergency situation message was given to ( this will be documented in basics to obtain permission Sent back to endo as FYI Per chart review - appears is very involved in pt care - please document above to protect medical staff re : HIPAA in in basics in epic does attend ov ( see 09-25-2024) Will document this in epic/ basics Erick Peguero LPN 09/26/2024 8:18 AM Signed Left message on machine to call the office. Ayana Zavala APRN.CNP 09/26/2024 11:55 AM Addendum Provided report to [facility]. Informed of BG of 614 mg/dL on labs yesterday and AG of 17, patient needs to be evaluated for possible DKA. Yanique Griffin RN 09/26/2024 8:40 AM Signed Pt is identified by name and birthdate: Yes Spouse calls states she has received several phone calls and has been on phone all morning trying to get through She was on the way to ER with her spouse but turned back around d/t all the phone calls - Apologized for confusion - Advised: Per Provider for her to take Manolo to ER. She has already called Report to their ER Agreeable Ayana Zavala APRN.CNP 09/26/2024 12:08 PM Addendum It appears patient has been discharged from [facility] around 10:00 AM. His blood sugar has greatly improved and is at/near range per pump report today (see below). Please reach out to patient/ to see how patient is doing. I will also have Gaye (pump water trainer) reach out to them to review 1) how to enter his Dexcom G7 sensor info into the pump with each sensor change so he does not get disconnected again and 2) to have him placed back in Automated Mode/how to ensure he remains in this. Will closely follow pump report over the next few days. Erick Peguero LPN 09/26/2024 2:00 PM Signed Attempted to reach patient, left message on VM letting him know that we were checking in on him. No need for him to call back unless he has questions. I will try again later this afternoon. Fransisca Peguerorudi Westfall LPN 09/27/2024 5:50 PM Signed Please see Mychart message 09/27/24 Allergies As of Date: 09/26/2024 (No Known Allergies) Date Reviewed: 09/25/2024 Reviewed by: Ayana Zavala APRN.TUBE BENDER HAND - Fully Assessed Prescriptions as of 09/27/2024 - dapagliflozin propanediol (FARXIGA) 10 mg tablet Take 1 tablet by mouth once daily. - spironolactone (ALDACTONE) 25 mg tablet Take 25 mg by mouth once daily. - atorvastatin (LIPITOR) 80 mg tablet Take 80 mg by mouth daily at bedtime. - insulin aspart U-100 (NOVOLOG U-100 INSULIN ASPART) 100 unit/mL ADMINISTER PER PUMP (MAX DAILY 60 UNITS) - tamsulosin (FLOMAX) 0.4 mg Take 0.4 mg by mouth. - Omeprazole Magnesium 20 mg tablet Take 20 mg by mouth. - metoprolol succinate ER (TOPROL XL) 50 mg 24 hr tablet Take 0.5 tablets by mouth every 12 hours. - PARoxetine (PAXIL) 40 mg tablet Take 40 mg by mouth every morning. - lisinopril 2.5 mg tablet Take 2.5 mg by mouth. - glucagon (GVOKE HYPOPEN 2-PACK) 1 mg/0.2 mL auto-injector Inject 1 mg subcutaneously as needed. - insulin glargine (LANTUS) 100 unit/mL injection In case of pump failure - insulin pump cart,auto,BT,G6/7 (OMNIPOD 5 G6-G7 PODS, GEN 5,) crtg Change every 72 hours. - qkiaqk-wiswflkf-ydawtap (CREON) 24,000-76,000 -120,000 unit cpDR Take 2 capsules by mouth three times daily with meals. and 1 with snacks (8/day) - folic acid/multivit-min/lutein (CENTRUM SILVER ORAL) Take by mouth once daily. - aspirin, enteric coated (ASPIRIN, ENTERIC COATED) 81 mg EC tablet Take 81 mg by mouth once daily. - cholecalciferol (VITAMIN D-3) 2,000 unit tablet Take 2,000 Units by mouth once daily. - cetirizine (ZYRTEC) 10 mg tablet Take 10 mg by mouth once daily. - Lactobac no.41/Bifidobact no.7 (PROBIOTIC-10 ORAL) Take by mouth once daily. - lutein-zeaxanthin 25-5 mg cap Take by mouth once daily. Problem List As Of Date 09/26/2024 Noted Resolved IPMN (intraductal papillary mucinous (more content not included)... Normal [facility] ALBUMIN/CREATININE RATIO, UR INEon 09-25-2024 Albumin DL <= 20 mg/L (U) [Mass/Vol] 20.2 mg/L Normal [facility] Comment on above: Order Comment: Speci men Type: URINE SPECIMENOrdering Facility: [facility] Address: [address] [place] [address] Performed By: #### U ACR ####[facility] LABCLIA [id number] [place] [address] [place] Albumin/Creatinine (U) [Mass ratio] 106 mg/g High <30 [facility] Comment on above: Order Comment: Speci men Type: URINE SPECIMENOrdering Facility: [facility] Address: [address] [place] [address] Result Comment: Adul t Male and Female Nephrotic Criteria: <30 mg/g is considered normal to mildly increased 30-300 mg/g is considered moderately increased >300 mg/g is considered severely increased KDIGO. (2013). KDIGO 2012 Clinical Practice Guideline for the Evaluation and Management of Chronic Kidney Disease. Official Journal of the International Society of Nephrology, 3(1), 1-150. Performed By: #### U ACR ####[facility] LABCLIA [id number] [place] [address] [place] Creatinine (U) [Mass/Vol] 19.1 mg/dL Low 20.0-300.0 [facility] Comment on above: Order Comment: Speci men Type: URINE SPECIMENOrdering Facility: [facility] Address: [address] [place] [address] Performed By: #### U ACR ####[facility] ITZEL [id number] SAEED ARNOLD [id number] [place], [place] [id number] [place] CNOVon 09-25-2024 CNOV Office Visit (ENDOLN ) ----- MANOLO VICKERS ([id number]) 1935 M Date Time Provider Department 09/25/24 2:30 PM AYANA ZAVALA ENDOLN During your visit today, we recorded the following information about you: Pulse Blood pressure Weight 60/minute 162/93 63.1 kg Ayana Zavala APRN.TUBE BENDER HAND 09/26/2024 11:42 AM Addendum Endocrinology Follow Up History of Present Illness Manolo Vickers is a 89 year old male presents today for follow up of DM Type 1. Here with . Patient previously on Omnipod DASH. He was upgraded to Omnipod 5 on 09/04/24. He reports blood sugars have been very elevated recently. He is having polydipsia and polyuria. His Dexcom G7 is not connected with his pump currently. He reports remembering to put his sensor code in when he last changed this so is confused why that did not work. Reports he ran out of Novolog for his pump on Wednesday but he did have Novolog pens at home so did use this in the meantime, but was able to picking machine operator helper Novolog on 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 He did not use any backup Lantus, although he still has this at home. He was not entering in carbs until he was contacted by CDE on Wednesday instructing him he needs to do this. He was only entering in correction. has been helping him to count carbs. He denies any acute changes in appetite, nausea, or vomiting. He is generally feeling fatigued. 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 No history of diabetes prior to this. He reports taking Lantus 12 units daily at bedtime in addition to his pump and has been doing this for awhile. He takes manual boluses for breakfast, lunch and dinner (10-8-7 units). He does not know how to carb count. He has significant fluctuations in his blood sugar, with frequent hypoglycemia typically overnight. He is eating more frequently to keep his glucose up and then having elevations later in the day. EMS has been called several times due to his low glucose. He does not have warning symptoms of his low blood sugars. Family reports they can usually have him correct with juice or honey but he is sometimes confused during low blood sugar episodes. Date of Diagnosis: 2019 Last HbA1c: Hemoglobin A1C (POCT) (%) Date Value 07/06/2024 10.1 Family history of diabetes includes none. Complications Microvascular: none Macrovascular: CAD s/p PCI Comorbidities: HTN, COPD, CAD, ICM, BPH, IPMN, pancreatitis Diabetic Foot and Retinal Eye Exam not Overdue Prior DM Medications: Jardiance- stopped by cardiology Current DM Related Medications: Current Medications 09/25/2024 DIABETES THERAPIES Medication Dosage Pharm Subclass insulin aspart U-100 (NOVOLOG U-100 INSULIN ASPART) 100 unit/mL ADMINISTER PER PUMP (MAX DAILY 60 UNITS) Insulin Analogs - Rapid Acting insulin glargine (LANTUS) 100 unit/mL injection In case of pump failure Insulin Analogs - Long Acting CARDIOVASCULAR Medication Dosage Pharm Subclass lisinopril 2.5 mg tablet Take 2.5 mg by mouth. MIS Inhibitors metoprolol succinate ER (TOPROL XL) 50 mg 24 hr tablet Take 1 tablet by mouth every 12 hours. Beta Blockers Cardiac Selective ANTI-PLATELET THERAPIES Medication Dosage Pharm Subclass aspirin, enteric coated (ASPIRIN, ENTERIC COATED) 81 mg EC tablet Take 81 mg by mouth once daily. Salicylate Analgesics ASPIRIN Medication Dosage Pharm Subclass aspirin, enteric coated (ASPIRIN, ENTERIC COATED) 81 mg EC tablet Take 81 mg by mouth once daily. Salicylate Analgesics OTHER Medication Dosage Pharm Subclass cetirizine (ZYRTEC) 10 mg tablet Take 10 mg by mouth once daily. Antihistamines - 2nd Generation cholecalciferol (VITAMIN D-3) 2,000 unit tablet Take 2,000 Units by mouth once daily. Vitamins - D Derivatives folic acid/multivit-min/lutein (CENTRUM SILVER ORAL) Take by mouth once daily. Multivitamin and Mineral Combinations glucagon (GVOKE HYPOPEN 2-PACK) 1 mg/0.2 mL auto-injector Inject 1 mg subcutaneously as needed. Agents to treat Hypoglycemia (Hyperglycemics) insulin pump cart,auto,BT,G6/7 (OMNIPOD 5 G6-G7 PODS, GEN 5,) crtg Change every 72 hours. Medical Supply, FDB Superset Lactobac no.41/Bifidobact no.7 (PROBIOTIC-10 ORAL) Take by mouth once daily. Intestinal Chayo Modifiers sldstr-lqyizoin-yaefzpk (CREON) 24,000-76,000 -120,000 unit cpDR Take 2 capsules by mouth three times daily with meals. and 1 with snacks (8/day) Digestive Enzyme Mixtures lutein-zeaxanthin 25-5 mg cap Take by mouth once daily. Alternative Therapy - Antioxidant Omeprazole Magnesium 20 mg tablet Take 20 mg by mouth. Gastric Acid Secretion Chief Deputy Sheriff - Proton Pump Inhibitors (PPIs) PARoxetine (PAXIL) 40 mg tablet Take 40 mg by mouth every morning. Antidepressant - Selective Serotonin Reuptake Inhibitors (SSRIs) tamsulosin (more content not included)... Normal [facility] Comprehensive metabolic 2000 panelon 09-25-2024 Albumin [Mass/Vol] 3.9 g/dL Normal 3.9-4.9 [facility] Comment on above: Order Comment: Speci men Type: BLOOD SPECIMENOrdering Facility: [facility] Address: [address] [place] [address] Performed By: #### L KENNY, 47144-8 ####[facility] LABCLIA [id number] [place] [address] [place] ALP [Catalytic activity/Vol] 156 U/L High 38-113 [facility] Comment on above: Order Comment: Speci men Type: BLOOD SPECIMENOrdering Facility: [facility] Address: [address] [place] [address] Performed By: #### L IPHONG, 56750-7 ####[facility] LABCLIA [id number] [place] [address] [place] ALT [Catalytic activity/Vol] 43 U/L Normal 10-54 [facility] Comment on above: Order Comment: Speci men Type: BLOOD SPECIMENOrdering Facility: [facility] Address: [address] [id number] Performed By: #### L IPNF, ####[facility] LABCLIA [id number] [address] [address] [place] Anion gap [Moles/Vol] 17 mmol/L High 8-15 [facility] Comment on above: Order Comment: Speci men Type: BLOOD SPECIMENOrdering Facility: [facility] Address: [address] [place], [place] [id number] Performed By: #### L IPNF, ####[facility] LABCLIA [id number] [address] [address] [place] AST [Catalytic activity/Vol] 76 U/L High 14-40 [facility] Comment on above: Order Comment: Speci men Type: BLOOD SPECIMENOrdering Facility: [facility] Address: [address] [place], [place] [id number] Performed By: #### L IPNF, ####[facility] LABCLIA [id number] [place] [id number] [place] Bilirubin [Mass/Vol] 0.5 mg/dL Normal 0.2-1.3 [facility] Comment on above: Order Comment: Speci men Type: BLOOD SPECIMENOrdering Facility: [facility] Address: [address] [place] [address] Performed By: #### L IPNF, ####[facility] LABCLIA [id number] [address] [address] [place] Calcium [Mass/Vol] 9.3 mg/dL Normal 8.5-10.2 [facility] Comment on above: Order Comment: Speci men Type: BLOOD SPECIMENOrdering Facility: [facility] Address: [address] [place], [place] [address] Performed By: #### L IPNF, 85301-5 ####[facility] LABCLIA [id number] [address] [address] [place] Chloride [Moles/Vol] 86 mmol/L Low 98-107 [facility] Comment on above: Order Comment: Speci men Type: BLOOD SPECIMENOrdering Facility: [facility] Address: [address] [place] [address] Performed By: #### L IPNF, 35477-3 ####[facility] LABCLIA [id number] [place] [address] [place] CO2 [Moles/Vol] 24 mmol/L Normal 22-30 [facility] Comment on above: Order Comment: Speci men Type: BLOOD SPECIMENOrdering Facility: [facility] Address: [address] [place] [address] Performed By: #### L IPNF, 21433-7 ####[facility] LABCLIA [id number] [place] [id number] [place] Creatinine [Mass/Vol] 1.09 mg/dL Normal 0.73-1.22 [facility] Comment on above: Order Comment: Speci men Type: BLOOD SPECIMENOrdering Facility: [facility] Address: [address] [place] [address] Performed By: #### L IPNF, 98911-4 ####[facility] LABIA [id number] [place] [id number] [place] Creatinine and Glomerular filtration rate.predicted panel (S/P/Bld) 66 mL/min/1.73m??? Normal >=60 [facility] Comment on above: Order Comment: Speci men Type: BLOOD SPECIMENOrdering Facility: [facility] Address: [address] [place] [address] Result Comment: Ivy mated Glomerular Filtration Rate (eGFR) is calculated using the 2020 CKD-EPI creatinine equation. This equation utilizes serum creatinine, sex, and age as parameters. The creatinine assay has traceable calibration to isotope dilution-mass spectrometry. Refer to KDIGO guidelines for clinical interpretation. In patients with unstable renal function, e.g. those with acute kidney injury, the eGFR may not accurately reflect actual GFR. Performed By: #### L KENNY, 49848-6 ####[facility] LABCLIA [id number] [address] [address] [place] Glucose [Mass/Vol] 614 mg/dL High 74-99 [facility] Comment on above: Order Comment: Speci men Type: BLOOD SPECIMENOrdering Facility: [facility] Address: [address] [place] [address] Result Comment: The [place] Diabetes Association (ADA) provides guidance for cutoff values for fasting glucose and random glucose. The ADA defines fasting as no caloric intake for at least 8 hours. Fasting plasma glucose results between 100 to 125 mg/dL indicate increased risk for diabetes (prediabetes). Fasting plasma glucose results greater than or equal to 126 mg/dL meet the criteria for diagnosis of diabetes. In the absence of unequivocal hyperglycemia, results should be confirmed by repeat testing. In a patient with classic symptoms of hyperglycemia or hyperglycemic crisis, random plasma glucose results greater than or equal to 200 mg/dL meet the criteria for diagnosis of diabetes. Reference: Standards of Medical Care in Diabetes 2016, [place] Diabetes Association. Diabetes Care. 2016.39(Suppl 1). Performed By: #### L KENNY, 44582-5 ####[facility]CLIA [id number] [address] [address] [place] Potassium [Moles/Vol] 5.2 mmol/L High 3.7-5.1 [facility] Comment on above: Order Comment: Speci men Type: BLOOD SPECIMENOrdering Facility: [facility] Address: [address] [id number] Performed By: #### L KENNY, 18086-1 ####[facility] LABCLIA [id number] [address] [address] [place] Protein [Mass/Vol] 7.1 g/dL Normal 6.3-8.0 [facility] Comment on above: Order Comment: Speci men Type: BLOOD SPECIMENOrdering Facility: [facility] Address: [address] [place] [address] Performed By: #### L IPNF, ####[facility]CLIA [id number] [address] [address] [place] Sodium [Moles/Vol] 127 mmol/L Low 136-144 [facility] Comment on above: Order Comment: Speci men Type: BLOOD SPECIMENOrdering Facility: [facility] Address: [address] [place] [address] Performed By: #### L IPNF, ####[facility] LABCLIA [id number] [place] [address] [place] Urea nitrogen [Mass/Vol] 37 mg/dL High 9-24 [facility] Comment on above: Order Comment: Speci men Type: BLOOD SPECIMENOrdering Facility: [facility] Address: [address] [place] [address] Performed By: #### L IPNF, ####[facility]CLIA [id number] [address] [address] [place] LIPID PANEL, NONFASTINGon Cholesterol [Mass/Vol] 144 mg/dL Normal <200 [facility] Comment on above: Order Comment: Speci men Type: BLOOD SPECIMENOrdering Facility: [facility] Address: [address] [place], [place] [id number] Result Comment: <200 mg/dL, Desirable 200-239 mg/dL, Borderline high >239 mg/dL, High Performed By: #### L IPNF, ####[facility] LABCLIA [id number] [address] [address] [place] HDL CHOLESTEROL, NF 51 mg/dL Normal >39 [facility] Comment on above: Order Comment: Speci men Type: BLOOD SPECIMENOrdering Facility: [facility] Address: [address] [place] [address] Result Comment: 40-5 9 mg/dL, Acceptable >59 mg/dL, High: Negative risk factor for coronary heart disease <40 mg/dL, Low: Positive risk factor for coronary heart disease Performed By: #### L IPNF, 73988-6 ####[facility] LABCLIA [id number] [address] STATES OF [facility] LDL CHOLESTEROL, NF 59 mg/dL Normal <100 [facility] Comment on above: Order Comment: Zohrehi nataliya Type: BLOOD SPECIMENOrdering Facility: [facility] Address: [address] [place] [address] Result Comment: <100 mg/dL, Optimal 100-129 mg/dL, Near optimal/above optimal 130-159 mg/dL, Borderline high 160-189 mg/dL, High >189 mg/dL, Very high Secondary prevention optimal LDL Cholesterol levels are recommended to be < 70 mg/dL Performed By: #### L IPNF, 01728-6 ####[facility] LABCLIA [id number] [address] OF [facility] LDL/HDL RATIO, NF 1.16 mg/dL Normal <2.54 [facility] Comment on above: Order Comment: Latonya an Type: BLOOD SPECIMENOrdering Facility: [facility] Address: [address] [place] [address] Result Comment: Refe rence: 1. National Cholesterol Education Program ATP III Guideline At-A-Glance Quick Desk Reference: National Heart, Lung, and Blood [place]. National Institutes of Health. 2001: NIH Publication No. 01-3305. 2. An International Atherosclerosis Society position paper: global recommendations for the management of dyslipidemia: executive summary, Atherosclerosis. 2014: 232(2):410-413. Performed By: #### L IPNF, 16980-1 ####[facility] LABCLIA [id number] [address] [place] NON HDL CHOL, NF 93 mg/dL Normal <130 [facility] Comment on above: Order Comment: Speci men Type: BLOOD SPECIMENOrdering Facility: [facility] Address: [address] [place] [address] Result Comment: <130 mg/dL, Optimal 130-159 mg/dL, Near optimal/above optimal 160-189 mg/dL, Borderline high 190-219 mg/dL, High >219 mg/dL, Very high Secondary prevention optimal non HDL Cholesterol levels are recommended to be <100 mg/dL Performed By: #### L IPNF, ####[facility] LABCLIA [id number] [place] [address] [place] T CHOL/HDL RATIO NF 2.82 mg/dL Normal <5.10 [facility] Comment on above: Order Comment: Speci men Type: BLOOD SPECIMENOrdering Facility: [facility] Address: [address] [place] [address] Performed By: #### L IPNF, ####[facility] LABCLIA [id number] [place] [address] [place] TRIGLYCERIDES, NF 168 mg/dL High <150 [facility] Comment on above: Order Comment: Speci men Type: BLOOD SPECIMENOrdering Facility: [facility] Address: [address] [place] [address] Result Comment: <150 mg/dL, Normal 150-199 mg/dL, Borderline high 200-499 mg/dL, High >499 mg/dL, Very high Performed By: #### L IPNF, ####[facility] LABCLIA [id number] [place] [address] [place] VLDL CHOLESTEROL, NF 34 mg/dL High <30 [facility] Comment on above: Order Comment: Speci men Type: BLOOD SPECIMENOrdering Facility: [facility] Address: [address] [place] [address] Performed By: #### L IPNF, ####[facility] LABCLIA [id number] [place] ARN[place] [address] [address] [place] 09-22-2024 [facility] Telephone (ELIZABETHT) ----- MANOLO VICKERS ([id number]) 1935 M Date Time Provider Department 09/22/24 GAYE MATA During your visit today, we recorded the following information about you: Gaye Mata, RN 09/22/2024 4:31 PM Signed Spoke with patient's regarding issues with Omnipod 5 and Glooko reports. Patient is still sleeping and does not have access to the Omnipod controller. She noted the pod had fallen off at some point and was laying next to the patient's bed. She will return call once he wakes up to review pump issues. Allergies As of Date: 09/22/2024 (No Known Allergies) Date Reviewed: 07/06/2024 Reviewed by: Ayana Zavala APRN.[employer] - Fully Assessed Prescriptions as of 09/22/2024 - insulin aspart U-100 (NOVOLOG U-100 INSULIN ASPART) 100 unit/mL ADMINISTER PER PUMP (MAX DAILY 60 UNITS) - tamsulosin (FLOMAX) 0.4 mg Take 0.4 mg by mouth. - Omeprazole Magnesium 20 mg tablet Take 20 mg by mouth. - metoprolol succinate ER (TOPROL XL) 50 mg 24 hr tablet Take 1 tablet by mouth every 12 hours. - PARoxetine (PAXIL) 40 mg tablet Take 40 mg by mouth every morning. - lisinopril 2.5 mg tablet Take 2.5 mg by mouth. - glucagon (GVOKE HYPOPEN 2-PACK) 1 mg/0.2 mL auto-injector Inject 1 mg subcutaneously as needed. - insulin glargine (LANTUS) 100 unit/mL injection In case of pump failure - insulin pump cart,auto,BT,G6/7 (OMNIPOD 5 G6-G7 PODS, GEN 5,) crtg Change every 72 hours. - sjkysb-higcbupe-tgzwxpz (CREON) 24,000-76,000 -120,000 unit cpDR Take 2 capsules by mouth three times daily with meals. and 1 with snacks (8/day) - folic acid/multivit-min/lutein (CENTRUM SILVER ORAL) Take by mouth once daily. - aspirin, enteric coated (ASPIRIN, ENTERIC COATED) 81 mg EC tablet Take 81 mg by mouth once daily. - cholecalciferol (VITAMIN D-3) 2,000 unit tablet Take 2,000 Units by mouth once daily. - cetirizine (ZYRTEC) 10 mg tablet Take 10 mg by mouth once daily. - Lactobac no.41/Bifidobact no.7 (PROBIOTIC-10 ORAL) Take by mouth once daily. - lutein-zeaxanthin 25-5 mg cap Take by mouth once daily. 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 Encounter Status:Closed by GAYE MATA on 09/22/[address] [facility] Telephone (ELIZABETHBHT) ----- MANOLO VICKERS ([id number]) 1935 M Date Time Provider Department 09/22/24 GAYE MATA During your visit today, we recorded the following information about you: Gaye Mata, RN 09/22/2024 3:45 PM Signed Patient's called back. Discussed Glooko report and asked about the pauses in pump use and consist high glucose numbers. Patient 's stated the pod fell off and they had no Novolog insulin vials to put insulin into the pump. Advised they do have Lantus insulin pens and Novolog insulin pens and use these as discussed in pump training as emergency back up in these instances where he does not have an active pod. Patient was also advised to enter his carbs for all his meals and snacks and ask for corrections. Patient stated at first he did not know to do that, then his said, yes you do. Reinforced importance and why carbs need to be entered as the pump does not know when he eats and he will have elevated blood sugars unless he enters the carbs in the pump and asks for corrections when needed. Educator asked patient to check his Dexcom 7 eliane and do a fingerstick to confirm blood glucose - adivsed it reads HIGH . Educator asked several times if he gave himself insulin today from the pens and got different answers. He said he did not give the evening dose of Lantus last night, and gave 12 units of the Novolog at his late breakfast today. Advised patient to continue to use back up pens and dosing until pod is reapplied. Message sent to provider to send in script for Novolog insulin vials. Patient and told to keep appointment on 09/25/24 with Ayana Zavala APRN, CNP to review pump settings and reinforce education. Allergies As of Date: 09/22/2024 (No Known Allergies) Date Reviewed: 07/06/2024 Reviewed by: Ayana Zavala APRN.[employer] - Fully Assessed Reason for Visit: Omnipod 5 pump issue [Other] Prescriptions as of 09/22/2024 - insulin aspart U-100 (NOVOLOG U-100 INSULIN ASPART) 100 unit/mL ADMINISTER PER PUMP (MAX DAILY 60 UNITS) - tamsulosin (FLOMAX) 0.4 mg Take 0.4 mg by mouth. - Omeprazole Magnesium 20 mg tablet Take 20 mg by mouth. - metoprolol succinate ER (TOPROL XL) 50 mg 24 hr tablet Take 1 tablet by mouth every 12 hours. - PARoxetine (PAXIL) 40 mg tablet Take 40 mg by mouth every morning. - lisinopril 2.5 mg tablet Take 2.5 mg by mouth. - glucagon (GVOKE HYPOPEN 2-PACK) 1 mg/0.2 mL auto-injector Inject 1 mg subcutaneously as needed. - insulin glargine (LANTUS) 100 unit/mL injection In case of pump failure - insulin pump cart,auto,BT,G6/7 (OMNIPOD 5 G6-G7 PODS, GEN 5,) crtg Change every 72 hours. - frfvoz-dovtgyyp-sdpiswl (CREON) 24,000-76,000 -120,000 unit cpDR Take 2 capsules by mouth three times daily with meals. and 1 with snacks (8/day) - folic acid/multivit-min/lutein (CENTRUM SILVER ORAL) Take by mouth once daily. - aspirin, enteric coated (ASPIRIN, ENTERIC COATED) 81 mg EC tablet Take 81 mg by mouth once daily. - cholecalciferol (VITAMIN D-3) 2,000 unit tablet Take 2,000 Units by mouth once daily. - cetirizine (ZYRTEC) 10 mg tablet Take 10 mg by mouth once daily. - Lactobac no.41/Bifidobact no.7 (PROBIOTIC-10 ORAL) Take by mouth once daily. - lutein-zeaxanthin 25-5 mg cap Take by mouth once daily. 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 Encounter Status:Closed by GAYE MATA on 09/22/24 [facility] 09-21-2024 [facility] Telephone (DEMT) ----- MANOLO VICKERS ([id number]) 1935 M Date Time Provider Department 09/21/24 [facility] During your visit today, we recorded the following information about you: Allergies As of Date: 09/21/2024 (No Known Allergies) Date Reviewed: 07/06/2024 Reviewed by: Ayana Zavala APRN.[facility] - Fully Assessed Reason for Visit: Omipod 5 upgrade follow up call [Other] Prescriptions as of 09/21/2024 - insulin aspart U-100 (NOVOLOG U-100 INSULIN ASPART) 100 unit/mL ADMINISTER PER PUMP (MAX DAILY 60 UNITS) - tamsulosin (FLOMAX) 0.4 mg Take 0.4 mg by mouth. - Omeprazole Magnesium 20 mg tablet Take 20 mg by mouth. - metoprolol succinate ER (TOPROL XL) 50 mg 24 hr tablet Take 1 tablet by mouth every 12 hours. - PARoxetine (PAXIL) 40 mg tablet Take 40 mg by mouth every morning. - lisinopril 2.5 mg tablet Take 2.5 mg by mouth. - glucagon (GVOKE HYPOPEN 2-PACK) 1 mg/0.2 mL auto-injector Inject 1 mg subcutaneously as needed. - insulin glargine (LANTUS) 100 unit/mL injection In case of pump failure - insulin pump cart,auto,BT,G6/7 (OMNIPOD 5 G6-G7 PODS, GEN 5,) crtg Change every 72 hours. - yxmbio-xrxxdqim-kmtwiwo (CREON) 24,000-76,000 -120,000 unit cpDR Take 2 capsules by mouth three times daily with meals. and 1 with snacks (8/day) - folic acid/multivit-min/lutein (CENTRUM SILVER ORAL) Take by mouth once daily. - aspirin, enteric coated (ASPIRIN, ENTERIC COATED) 81 mg EC tablet Take 81 mg by mouth once daily. - cholecalciferol (VITAMIN D-3) 2,000 unit tablet Take 2,000 Units by mouth once daily. - cetirizine (ZYRTEC) 10 mg tablet Take 10 mg by mouth once daily. - Lactobac no.41/Bifidobact no.7 (PROBIOTIC-10 ORAL) Take by mouth once daily. - lutein-zeaxanthin 25-5 mg cap Take by mouth once daily. 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 1 mg/dL [facility] Chloride [Moles/Vol] 99 mmol/L 98 - 10 7 mmol/L [facility] CO2 [Moles/Vol] 31.2 mmol/L 21.0 - 32.0 mmol/L [facility] Creatinine [Mass/Vol] 1.31 mg/dL High 0.70 - 1.30 mg/dL [facility] GFR/1.73 sq M.predicted CKD-EPI (S/P/Bld) [Vol rate/Area] >60 >=60 mL/min/1.7 3m 2 [facility] Glucose [Mass/Vol] 385 mg/dL High 74 - 106 mg/dL [facility] Potassium [Moles/Vol] 4.3 mmol/L 3.5 - 5.1 mmol/L [facility] Sodium [Moles/Vol] 139 mmol/L 136 - 145 mmol/L [facility] TBH EGFR-NON AF [place] 52 Low >=60 mL/min/1.7 3m 2 [facility] Urea nitrogen [Mass/Vol] 23 mg/dL High 7.0 - 18.0 mg/dL [facility] Urea nitrogen/Creatinine [Mass ratio] 17.6 mg/mg [facility] ALL PRO BNPon 09-13-2024 NT PRO B TYPE NATRIURETIC PEPT 10421 pg/mL Critically high NINF - 1800.0 pg/mL [facility] Comment on above: RESULTS CALLED TO BE KARRIE SANDOVAL RN AT 1054 No Panel Informationon 09-13 Interpretation and review of laboratory results Abnormal [facility] CNNURSEon 09-04-2024 [facility] Nurse Visit (MOMOT) ----- MANOLO VICKERS ([id number]) 1935 M Date Time Provider Department 09/04/24 1:00 PM GAYE MATA During your visit today, we recorded the following information about you: Gaye Mata, KARIN 09/04/2024 3:22 PM Signed DIABETES SELF-MANAGEMENT EDUCATION AND SUPPORT FOLLOW-UP VISIT Type of Diabetes: Type 2 Location: [place] Type of visit: In person individual Types of DSMES: Initial/Comprehensive (add to or update ADA spreadsheet) PATIENT'S MAIN CONCERN TODAY: switch from Omnipod DASH with Dexcom G7 to Omnipod 5 with Dexcom g7 Support person present for education today: spouse Cognitive ability: Confused at times Forgetful, unable to remember Motivation to learn: Interested Learning barriers identified by educator: none Method of instruction: written, verbal, and demonstration DIABETES SELF-MANAGEMENT FINDINGS: Monitoring: using glucose meter for manual fingersticks, not connected to Omnipod DASH Type of visit: In person individual Patient started today on Omnipod 5 insulin pump. Type of training:upgrade from DASH If upgrade, patient was previously on the following pump:Omnipod DASH Pump programming done today by: patient with educator supervision Insulin information: Last long-acting insulin type, dose, and time: n/a on Omnipod DASH Temp basal rate set today:no temp basal set today Temp basal duration set today:no temp basal set today Rapid-acting insulin loaded into pump today: Humalog U100 See phone encounter dated 07/06/25 for pump settings approved by provider and programmed into pump today. Name: Manolo Vickers Date of : 1935 Report Created: 09/04/2024 Date Range: Aug 22, 2024 - Sep 04, 2024 - - - - - - - - - - - - - - - - - - - - - - - - - - - SUMMARY - CGM GMI (CGM): N/A Average Glucose (CGM): HI mg/dL Median (CGM): HI mg/dL SD (CGM): 0 mg/dL CV (CGM): 0% % Time CGM Active: 3.4% (0 days) Highest (CGM): HI mg/dL Lowest (CGM): HI mg/dL CGM Average Daily Time in Range (mg/dL) % Readings < 54: 0% % Readings < 70: 0% % Readings 70-180: 0% % Readings > 180: 100% % Readings > 250: 100% SUMMARY - BG Average Glucose (BG): 350 mg/dL Median (BG): 350 mg/dL SD (BG): 0 mg/dL Readings/Day: 0.1 Highest (BG): 350 mg/dL Lowest (BG): 350 mg/dL BG Average % in Range (mg/dL) % Readings < 54: 0% % Readings < 70: 0% % Readings 70-180: 0% % Readings > 180: 100% % Readings > 250: 100% - - - - - - - - - - - - - - - - - - - - - - - - - - - TIME OF DAY - CGM Morning Afternoon Evening Night (5AM-10AM) (10AM-3PM) (3PM-9PM) (9PM-5AM) % Readings < 70 mg/dL: 0% 0% 0% 0% % Readings 70-180 mg/dL: 0% 0% 0% 0% % Readings > 180 mg/dL: 0% 100% 0% 0% Readings: 0 5 0 0 Average (mg/dL): 0 HI 0 0 SD (mg/dL): 0 0 0 0 TIME OF DAY - BG Morning Afternoon Evening Night (5AM-10AM) (10AM-3PM) (3PM-9PM) (9PM-5AM) % Readings < 70 mg/dL: 0% 0% 0% 0% % Readings 70-180 mg/dL: 0% 0% 0% 0% % Readings > 180 mg/dL: 0% 100% 0% 0% Readings: 0 1 0 0 Average (mg/dL): 0 350 0 0 SD (mg/dL): 0 0 0 0 - - - - - - - - - - - - - - - - - - - - - - - - - - - DEVICES Device Name: Insulet Omnipod? 5 System Serial Number: [id number] Sync Date: 09/04/24 Device Time Offset (hh:mm): +00:00 Device Name: Insulet Omnipod Dash? System Serial Number: [id number] Sync Date: 03/05/22 Device Time Offset (hh:mm): +00:00 Device Name: Insulet Omnipod Dash? System Serial Number: [id number] Sync Date: 11/14/21 Device Time Offset (hh:mm): +00:00 Device Name: Insulet Omnipod DASH? [place] Serial Number: [id number] Sync Date: 09/19/20 Device Time Offset (hh:mm): +00:00 Device Name: Insulet Omnipod Dash? System Serial Number: [id number] Sync Date: 09/19/20 Device Time Offset (hh:mm): +00:00 - - - - - - - - - - - - - - - - - - - - - - - - - - - PUMP SETTINGS Basal1 - current Start Time Basal Rates Target BG Insulin to Carb Ratio Sensitivity (ISF) (Units/hr) (mg/dL) (g/Unit) (mg/dL/Unit) 12:00 AM 0.05 150 20 60 Total 1.2 Active Insulin Time: 3 hours Infusion set information: Infusion set name: Insulet Infusion set cannula length: 6 mm Infusion set insertion done today by:patient with educator supervision Infusion set inserted in left thigh Pre-pump training and pump safety information: Patient can demonstrate correct use of a carb ratio:No- patient is using set insulin amounts of 10 units breakfast, 8 units lunch, 7 units dinner. Patient was shown how to deliver a meal bolus or correction bolus by selecting use sensor on bolus calculator screen. Patient advised that if no number or arrow on the dashboard, do a manual fingerstick and enter that blood glucose number and pump will calculate correct dose of insulin. Patient shown how to add foods to the custom foods tab in the menu to create frequ (more content not included)... [facility] MANOLO VICKERS ([id number]) 1935 M Date Time Provider Department 08/31/24 GAYE MATA During your visit today, we recorded the following information about you: Gaye Mata, KARIN 08/31/2024 11:59 AM Signed Spoke with patient's regarding Omnipod 5 insulin pump start with Dexcom G7 on 09/04/24 at 1 pm. Patient is currently using DASH with reader. Advised to make sure patient brings his insulin, all login passwords for Omnipod, Glooko, and Dexcom G7, his smartphone, [employer] 5 controller phone fully charged and updated if needed so the pump start will go smoothly. requested email resent to her with instructions on day of training information to [email or web address] Allergies As of Date: 08/31/2024 (No Known Allergies) Date Reviewed: 07/06/2024 Reviewed by: Ayana Zavala APRN.TUBE BENDER HAND - Fully Assessed Reason for Visit: Appointment [186] Prescriptions as of 08/31/2024 - insulin aspart U-100 (NOVOLOG U-100 INSULIN ASPART) 100 unit/mL ADMINISTER PER PUMP (MAX DAILY 60 UNITS) - tamsulosin (FLOMAX) 0.4 mg Take 0.4 mg by mouth. - Omeprazole Magnesium 20 mg tablet Take 20 mg by mouth. - metoprolol succinate ER (TOPROL XL) 50 mg 24 hr tablet Take 1 tablet by mouth every 12 hours. - PARoxetine (PAXIL) 40 mg tablet Take 40 mg by mouth every morning. - lisinopril 2.5 mg tablet Take 2.5 mg by mouth. - glucagon (GVOKE HYPOPEN 2-PACK) 1 mg/0.2 mL auto-injector Inject 1 mg subcutaneously as needed. - insulin glargine (LANTUS) 100 unit/mL injection In case of pump failure - insulin pump cart,auto,BT,G6/7 (OMNIPOD 5 G6-G7 PODS, GEN 5,) crtg Change every 72 hours. - ubgaku-qfgqgajq-owzjwlz (CREON) 24,000-76,000 -120,000 unit cpDR Take 2 capsules by mouth three times daily with meals. and 1 with snacks (8/day) - folic acid/multivit-min/lutein (CENTRUM SILVER ORAL) Take by mouth once daily. - aspirin, enteric coated (ASPIRIN, ENTERIC COATED) 81 mg EC tablet Take 81 mg by mouth once daily. - cholecalciferol (VITAMIN D-3) 2,000 unit tablet Take 2,000 Units by mouth once daily. - cetirizine (ZYRTEC) 10 mg tablet Take 10 mg by mouth once daily. - Lactobac no.41/Bifidobact no.7 (PROBIOTIC-10 ORAL) Take by mouth once daily. - lutein-zeaxanthin 25-5 mg cap Take by mouth once daily. 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 Placed on Ayana's desk for signature on form and chart notes. Lit Goodwin MA 08/15/2024 11:57 AM Signed Form completed, faxed, confirmation received. Sent for scan. Allergies As of Date: 08/15/2024 (No Known Allergies) Date Reviewed: 07/06/2024 Reviewed by: Ayana Zavala APRN.TUBE BENDER HAND - Fully Assessed Reason for Visit: Forms [913] Cmt: [place]- Physcians order Prescriptions as of 08/15/2024 - insulin aspart U-100 (NOVOLOG U-100 INSULIN ASPART) 100 unit/mL ADMINISTER PER PUMP (MAX DAILY 60 UNITS) - tamsulosin (FLOMAX) 0.4 mg Take 0.4 mg by mouth. - Omeprazole Magnesium 20 mg tablet Take 20 mg by mouth. - metoprolol succinate ER (TOPROL XL) 50 mg 24 hr tablet Take 1 tablet by mouth every 12 hours. - PARoxetine (PAXIL) 40 mg tablet Take 40 mg by mouth every morning. - lisinopril 2.5 mg tablet Take 2.5 mg by mouth. - glucagon (GVOKE HYPOPEN 2-PACK) 1 mg/0.2 mL auto-injector Inject 1 mg subcutaneously as needed. - insulin glargine (LANTUS) 100 unit/mL injection In case of pump failure - insulin pump cart,auto,BT,G6/7 (OMNIPOD 5 G6-G7 PODS, GEN 5,) crtg Change every 72 hours. - dipfta-ffoqbmgk-gkzgxge (CREON) 24,000-76,000 -120,000 unit cpDR Take 2 capsules by mouth three times daily with meals. and 1 with snacks (8/day) - folic acid/multivit-min/lutein (CENTRUM SILVER ORAL) Take by mouth once daily. - aspirin, enteric coated (ASPIRIN, ENTERIC COATED) 81 mg EC tablet Take 81 mg by mouth once daily. - cholecalciferol (VITAMIN D-3) 2,000 unit tablet Take 2,000 Units by mouth once daily. - cetirizine (ZYRTEC) 10 mg tablet Take 10 mg by mouth once daily. - Lactobac no.41/Bifidobact no.7 (PROBIOTIC-10 ORAL) Take by mouth once daily. - lutein-zeaxanthin 25-5 mg cap Take by mouth once daily. 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 Faxed [facility] note 07/06/24 to [phone]. Confirmation received. Allergies As of Date: 08/09/2024 (No Known Allergies) Date Reviewed: 07/06/2024 Reviewed by: Ayana Zavala APRN.TUBE BENDER HAND - Fully Assessed Reason for Visit: Forms [913] Cmt: Noah SEGOVIA note Prescriptions as of 08/09/2024 - insulin aspart U-100 (NOVOLOG U-100 INSULIN ASPART) 100 unit/mL ADMINISTER PER PUMP (MAX DAILY 60 UNITS) - tamsulosin (FLOMAX) 0.4 mg Take 0.4 mg by mouth. - Omeprazole Magnesium 20 mg tablet Take 20 mg by mouth. - metoprolol succinate ER (TOPROL XL) 50 mg 24 hr tablet Take 1 tablet by mouth every 12 hours. - PARoxetine (PAXIL) 40 mg tablet Take 40 mg by mouth every morning. - lisinopril 2.5 mg tablet Take 2.5 mg by mouth. - glucagon (GVOKE HYPOPEN 2-PACK) 1 mg/0.2 mL auto-injector Inject 1 mg subcutaneously as needed. - insulin glargine (LANTUS) 100 unit/mL injection In case of pump failure - insulin pump cart,auto,BT,G6/7 (OMNIPOD 5 G6-G7 PODS, GEN 5,) crtg Change every 72 hours. - fbwmbl-mstkadaa-frtzsjx (CREON) 24,000-76,000 -120,000 unit cpDR Take 2 capsules by mouth three times daily with meals. and 1 with snacks (8/day) - folic acid/multivit-min/lutein (CENTRUM SILVER ORAL) Take by mouth once daily. - aspirin, enteric coated (ASPIRIN, ENTERIC COATED) 81 mg EC tablet Take 81 mg by mouth once daily. - cholecalciferol (VITAMIN D-3) 2,000 unit tablet Take 2,000 Units by mouth once daily. - cetirizine (ZYRTEC) 10 mg tablet Take 10 mg by mouth once daily. - Lactobac no.41/Bifidobact no.7 (PROBIOTIC-10 ORAL) Take by mouth once daily. - lutein-zeaxanthin 25-5 mg cap Take by mouth once daily. 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 Nurse Visit (ELIZABETHBHT) ----- MANOLO VICKERS ([id number]) 1935 M Date Time Provider Department 07/25/24 1:00 PM GAYE MATA During your visit today, we recorded the following information about you: Gaye Mata, RN 07/25/2024 5:09 PM Signed DIABETES CARE AND EDUCATION VISIT Location: [place] Type of visit: In person individual PATIENT'S MAIN CONCERN TODAY: switch Omnipod DASH to Omnipod 5 insulin pump with Dexcom g7 Support person present for education today: spouse Cognitive ability: Forgetful, unable to remember Motivation to learn: Interested Learning barriers identified by educator: forgetful, unable to remember passwords for log ins, did not bring insulin to appointment, unable to start Omnipod 5 insulin pump during this visit. Method of instruction: written and verbal DIABETES FINDINGS: Monitoring: wearing Dexcom G7 with reader Meal Planning: patient not carb counting, using set carb amounts at meals Medications: currently on Omnipdo DASH pump with Insulet infusion sets changes infusion sets q3days see below for current pump settings Name: Manolo Vickers Date of : 1935 Report Created: 07/25/2024 Date Range: Jun 23, 2024 - Jul 06, 2024 - - - - - - - - - - - - - - - - - - - - - - - - - - - SUMMARY - BG Average Glucose (BG): 158 mg/dL Median (BG): 136 mg/dL SD (BG): 89 mg/dL Readings/Day: 2.1 Highest (BG): 390 mg/dL Lowest (BG): 42 mg/dL BG Average % in Range (mg/dL) % Readings < 54: 7% % Readings < 70: 14% % Readings 70-180: 48% % Readings > 180: 38% % Readings > 250: 10% - - - - - - - - - - - - - - - - - - - - - - - - - - - TIME OF DAY - BG Morning Afternoon Evening Night (5AM-10AM) (10AM-3PM) (3PM-9PM) (9PM-5AM) % Readings < 70 mg/dL: 22% 10% 10% 0% % Readings 70-180 mg/dL: 78% 30% 40% 0% % Readings > 180 mg/dL: 0% 60% 50% 0% Readings: 9 10 10 0 Average (mg/dL): 97 181 191 0 SD (mg/dL): 28 75 113 0 - - - - - - - - - - - - - - - - - - - - - - - - - - - INSULIN - DEVICE From insulin pump Insulin/Day: 30.8 units Overrides (%): 0% (0 boluses) # Bolus/Day: 2.3 Bolus %/Day: 63% Basal %/Day: 37% Average Bolus: 8.4 units Correction Bolus/Day: 0 (0%) - - - - - - - - - - - - - - - - - - - - - - - - - - - DEVICES Device Name: [employer] OmnipCollibra? System Serial Number: [id number] Sync Date: 07/06/24 Device Time Offset (hh:mm): +00:00 - - - - - - - - - - - - - - - - - - - - - - - - - - - PUMP SETTINGS Basal 1 - current Start Time Basal Rates Target BG Insulin to Carb Ratio Sensitivity (ISF) (Units/hr) (mg/dL) (g/Unit) (mg/dL/Unit) 12:00 AM 0.5 150 20 60 Total 12 Active Insulin Time: 3.5 hours Problem Solving: not discussed Physical Activity: not discussed Reducing Risks: discussed hypo/hyperglycemia treatment while on insulin pumps Healthy Coping: not discussed INTERVENTIONS/TOPICS COVERED: -Monitoring: CGM basics AND daily use and CGM type: [employer] G7 with reader. Patient understand he will need to download [employer] G7 eliane on his Iphone SE. Patient unable to recall log in for Dexcom eliane. Patient downloaded G6 eliane, not G7 eliane. Educator needed to call [employer] for assistance in resetting password as patient unable to get into his email to obtain code to reset. -Medications: reviewed home DM meds, basal insulin, prandial insulin, prebolusing, stacking insulin and how to prevent it, injectable insulin discussed: using Omnipod DASH with Dexcom G7 controller, and insulin pump instruction: pump benefits , pump requirements of user, pump limitations , infusion set rotation, activity mode, and insulin pump terminology: basal, bolus, carb ratio, BG target, ebsmbag-gx-jalzo/duration , and patient did not bring insulin vials with him so we were unable to start pump today. Patient and leaving for [place] for a month tomorrow and has rescheduled pump start visit for 09/04/24. -Acute Complications: hypoglycemia s/sx/tx, hyperglycemia s/sx/tx, and traveling with diabetes HANDOUTS: None LEARNING RESPONSE: Healthy eating: Needs further instruction/review Taking medications: Demonstrated understanding/competency today or at previous visit Monitoring glucose: Demonstrated understanding/competency today or at previous visit Acute complications: Demonstrated understanding/competency today or at previous visit POSSIBLE FUTURE TOPICS: 1. Patient and to return after [place] trip to start Omnipod 5 switch from DASH. Patient advised to remember to bring insulin vials, Omnipod 5 pods, phone, controller, and Omnipod ID login and password to next visit. DIABETES CARE AND EDUCATION PLAN: Individual follow-up Patient does not have MyChart. Email sent prior to today's visit on what to bring to appointment. Patient did not read instructions and did not bring insulin vials or have eliane (more content not included)... Normal [facility] ALL BASIC METABOLIC PANELon 07-21-2024 Anion gap [Moles/Vol] 16.6 mmol/L NO [facility] Calcium [Mass/Vol] 8.8 mg/dL 8.5 - 10. 1 mg/dL [facility] Chloride [Moles/Vol] 99 mmol/L 98 - 10 7 mmol/L [facility] CO2 [Moles/Vol] 27.6 mmol/L 21.0 - 32.0 mmol/L [facility] Creatinine [Mass/Vol] 1.12 mg/dL 0.70 - 1.30 mg/dL [facility] GFR/1.73 sq M.predicted CKD-EPI (S/P/Bld) [Vol rate/Area] >60 >=60 mL/min/1.7 3m 2 [facility] Glucose [Mass/Vol] 297 mg/dL High 74 - 106 mg/dL [facility] Interpretation and review of laboratory results Abnormal [facility] Potassium [Moles/Vol] 4.2 mmol/L 3.5 - 5.1 mmol/L [facility] Sodium [Moles/Vol] 139 mmol/L 136 - 145 mmol/L [facility] TBH EGFR-NON AF S[place]ESE >60 >=60 mL/min/1.7 3m 2 [facility] Urea nitrogen [Mass/Vol] 22 mg/dL High 7.0 - 18.0 mg/dL [facility] Urea nitrogen/Creatinine [Mass ratio] 19.6 mg/mg [facility] CNPHaley 07-21-2024 [facility] Telephone ([facility]) ----- MANOLO VICKERS ([id number]) 1935 M Date Time Provider Department 07/21/24 GAYE MATASarah During your visit today, we recorded the following information about you: Allergies As of Date: 07/21/2024 (No Known Allergies) Date Reviewed: 07/06/2024 Reviewed by: Ayana Zavala APRN.TUBE BENDER HAND - Fully Assessed Reason for Visit: Appointment [186] Prescriptions as of 07/21/2024 - insulin aspart U-100 (NOVOLOG U-100 INSULIN ASPART) 100 unit/mL ADMINISTER PER PUMP (MAX DAILY 60 UNITS) - tamsulosin (FLOMAX) 0.4 mg Take 0.4 mg by mouth. - Omeprazole Magnesium 20 mg tablet Take 20 mg by mouth. - metoprolol succinate ER (TOPROL XL) 50 mg 24 hr tablet Take 1 tablet by mouth every 12 hours. - PARoxetine (PAXIL) 40 mg tablet Take 40 mg by mouth every morning. - lisinopril 2.5 mg tablet Take 2.5 mg by mouth. - glucagon (GVOKE HYPOPEN 2-PACK) 1 mg/0.2 mL auto-injector Inject 1 mg subcutaneously as needed. - insulin glargine (LANTUS) 100 unit/mL injection In case of pump failure - insulin pump cart,auto,BT,G6/7 (OMNIPOD 5 G6-G7 PODS, GEN 5,) crtg Change every 72 hours. - rhzokn-oiyzcfmy-oeffmxh (CREON) 24,000-76,000 -120,000 unit cpDR Take 2 capsules by mouth three times daily with meals. and 1 with snacks (8/day) - folic acid/multivit-min/lutein (CENTRUM SILVER ORAL) Take by mouth once daily. - aspirin, enteric coated (ASPIRIN, ENTERIC COATED) 81 mg EC tablet Take 81 mg by mouth once daily. - cholecalciferol (VITAMIN D-3) 2,000 unit tablet Take 2,000 Units by mouth once daily. - cetirizine (ZYRTEC) 10 mg tablet Take 10 mg by mouth once daily. - Lactobac no.41/Bifidobact no.7 (PROBIOTIC-10 ORAL) Take by mouth once daily. - lutein-zeaxanthin 25-5 mg cap Take by mouth once daily. 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 Performed By: #### G LULS #### Point of Care testing , HbA1c (Bld) [Mass fraction] 9.8 % High 4.3-5.6 [facility] Comment on above: Result Comment: Incr eased risk for diabetes: 5.7 - 6.4 diabetes: >6.4 glycemic control for adults with diabetes: <7.0 Performed By: #### G LULS #### Point of Care testing , Acanthocytes [Presence] in B lood by Light microscopyOrdered By: Indra Guillory on 07-17-2024 Acanthocytes LM Ql (Bld) Acanthocytes [Presence] in Blood by Light microscopy [facility] Alanine aminotransferase [En zymatic activity/volume] in Serum or PlasmaOrdered By: Indra Guillory on 07-17-2024 ALT [Catalytic activity/Vol] Alanine aminotransferase [Enzymatic activity/volume] in Serum or Plasma 7-52 [facility] Albumin [Mass/volume] in Ser um or Plasma by Bromocresol green (BCG) dye binding methoOrdered By: Indra Guillory on 07-17-2024 Albumin BCG dye [Mass/Vol] Albumin [Mass/volume] in Serum or Plasma by Bromocresol green (BCG) dye binding metho 3.5-5.7 [facility] Alkaline phosphatase [Enzyma tic activity/volume] in Serum or PlasmaOrdered By: Indra Guillory on 07-17-2024 ALP [Catalytic activity/Vol] Alkaline phosphatase [Enzymatic activity/volume] in Serum or Plasma High 34-104 [facility] Anisocytosis LM Ql (Bld)Orde red By: Indra Guillory on 07-17-2024 Anisocytosis Ql (Bld) Anisocytosis [Pres ence] in Blood by Light microscopy [facility] Aspartate aminotransferase [ Enzymatic activity/volume] in Serum or PlasmaOrdered By: Indra Guillory on 07-17-2024 AST [Catalytic activity/Vol] Aspartate aminotransferase [Enzymatic activity/volume] in Serum or Plasma 13-39 [facility] Band form neutrophils/100 WB C Manual cnt (Bld)Ordered By: Indra Guillory on 07-17-2024 Band form neutrophils/100 WBC (Bld) Peripheral white blood cell differential % bands, microscopic exam 0-5 [facility] Basophils Auto (Bld) [#/Vol] Ordered By: Indra Guillory on 07-17-2024 Basophils (Bld) [#/Vol] Automated basophil count [facility] Basophils/100 WBC Auto (Bld) Ordered By: Indra Guillory on 07-17-2024 Basophils/100 WBC (Bld) Automated basophil % [facility] Bilirubin.total [Mass/volume ] in Serum or PlasmaOrdered By: Indra Guillory on 07-17-2024 Bilirubin [Mass/Vol] Bilirubin.total [Mass/volume] in Serum or Plasma 0.3-1.0 [facility] BioFire Not Detectedon 07-17 BioFire Not Detected Not detected Normal Not Detecte [facility] Comment on above: Result Comment: This is a duplicate RP2.1 COVID (PCR) result to be used for statistical tracking purpose only. PERFORMED BY: [facility] [address] [place] [address] PATHOLOGIST QUEEN'S COUNSEL ANDRE PERALTA M.D. Performed By: #### G LULS #### Point of Care testing , Blood estimated average gluc ose determination by estimation from glycated hemoglobinOrdered By: Indra Guillory on 07-17-2024 Average glucose Estimated from glycated hemoglobin (Bld) [Mass/Vol] Glucose mean value [Mass/volume] in Blood Estimated from glycated hemoglobin [facility] Geo cells [Presence] in Blo od by Light microscopyOrdered By: Indra Guillory on 07-17-2024 Mcdermitt cells LM Ql (Bld) Geo cells [Prese nce] in Blood by Light microscopy [facility] COVID-19 Detected/Not Detect edOrdered By: Indra Guillory on 07-17-2024 SARS-CoV-2 (COVID-19) RNA ANASTASIA+non-probe Ql (Nph) Not detected Not Detecte [facility] Comment on above: This is a duplicate RP2.1 COVID (PCR) result to be used for statistical tracking purpose only. Calcium [Mass/volume] in Ser um or PlasmaOrdered By: Indra Guillory on 07-17-2024 Calcium [Mass/Vol] Calcium [Mass/volume ] in Serum or Plasma 8.6-10.3 [facility] Carbon dioxide, total [Moles /volume] in Serum or PlasmaOrdered By: Indra Guillory on 01-06-2025 CO2 [Moles/Vol] Carbon dioxide, tota l [Moles/volume] in Serum or Plasma 21.0-31.0 [facility] Chloride [Moles/volume] in S jihan or PlasmaOrdered By: Indra Guillory on 07-17-2024 Chloride [Moles/Vol] Chloride [Moles/vol ume] in Serum or Plasma Low 98-107 [facility] Comprehensive Metabolic Pane jairo 07-17-2024 Albumin [Mass/Vol] 3.6 g/dL Normal 3.5-5.7 [facility] Comment on above: Performed By: #### G LULS #### Point of Care testing , Albumin/Globulin [Mass ratio] 1.2 {ratio} Normal [facility] Comment on above: Performed By: #### G LULS #### Point of Care testing , ALP [Catalytic activity/Vol] 136 U/L High 34-104 [facility] Comment on above: Performed By: #### G LULS #### Point of Care testing , ALT [Catalytic activity/Vol] 18 U/L Normal 7-52 [facility] Comment on above: Performed By: #### G LULS #### Point of Care testing , Anion gap [Moles/Vol] 11.6 mmol/L Normal 6.0-15.0 [facility] Comment on above: Performed By: #### G LULS #### Point of Care testing , AST [Catalytic activity/Vol] 20 U/L Normal 13-39 [facility] Comment on above: Performed By: #### G LULS #### Point of Care testing , Bilirubin [Mass/Vol] 0.6 mg/dL Normal 0.3-1.0 [facility] Comment on above: Performed By: #### G LULS #### Point of Care testing , Calcium [Mass/Vol] 8.8 mg/dL Normal 8.6-10.3 [facility] Comment on above: Performed By: #### G LULS #### Point of Care testing , Chloride [Moles/Vol] 96 mmol/L Low 98-107 [facility] Comment on above: Performed By: #### G LULS #### Point of Care testing , CO2 [Moles/Vol] 28.2 mmol/L Normal 21.0-31.0 [facility] Comment on above: Performed By: #### G LULS #### Point of Care testing , Creatinine [Mass/Vol] 1.03 mg/dL Normal 0.70-1.30 [facility] Comment on above: Performed By: #### G LULS #### Point of Care testing , Creatinine Clr Calc Pharmacy 45.38 Normal [facility] Comment on above: Result Comment: PERF ORMED BY: [facility] [address] [place] [address] PATHOLOGIST QUEEN'S COUNSEL ANDRE PERALTA M.D. Performed By: #### G LULS #### Point of Care testing , GFR/1.73 sq M.predicted MDRD (S/P/Bld) [Vol rate/Area] mL/min/{1.73_m2} Normal [facility] Comment on above: Performed By: #### G LULS #### Point of Care testing , Globulin (S) [Mass/Vol] 3.0 g/dL Normal [facility] Comment on above: Performed By: #### G LULS #### Point of Care testing , Glucose [Mass/Vol] 443 mg/dL Significant change up 70-100 [facility] Comment on above: Result Comment: [facility] Glucose Reference Range is dependent on time and content of last meal. Glucose of more than 200 mg/dL in a nonstressed, ambulatory subject supports the diagnosis of Diabetes Mellitus. ADA recommended reference range Performed By: #### G LULS #### Point of Care testing , Potassium [Moles/Vol] 4.8 mmol/L Normal 3.5-5.1 [facility] Comment on above: Performed By: #### G LULS #### Point of Care testing , Protein [Mass/Vol] 6.6 g/dL Normal 6.4-8.9 [facility] Comment on above: Performed By: #### G LULS #### Point of Care testing , Sodium [Moles/Vol] 131 mmol/L Low 136-145 [facility] Comment on above: Performed By: #### G LULS #### Point of Care testing , Urea nitrogen [Mass/Vol] 20 mg/dL Normal 7-25 [facility] Comment on above: Performed By: #### G LULS #### Point of Care testing , Creatinine [Mass/volume] in Serum or PlasmaOrdered By: Indra Guillory on 07-17-2024 Creatinine [Mass/Vol] Creatinine [Mass/v olume] in Serum or Plasma 0.70-1.30 [facility] Diff and CBCon 07-17-2024 Acanthocytes Marked Normal [facility] Comment on above: Performed By: #### G LULS #### Point of Care testing , Anisocytosis Ql (Bld) Moderate Normal [facility] Comment on above: Performed By: #### G LULS #### Point of Care testing , Band form neutrophils/100 WBC (Bld) 1 % Normal 0-5 [facility] Comment on above: Performed By: #### G LULS #### Point of Care testing , Crenated RBC Moderate Normal [facility] Comment on above: Performed By: #### G LULS #### Point of Care testing , Erythrocyte distribution width (RBC) [Ratio] 19.7 % High 12.0-14.8 [facility] Comment on above: Performed By: #### G LULS #### Point of Care testing , Helmet Cells Slight Normal [facility] Comment on above: Performed By: #### G LULS #### Point of Care testing , Hematocrit (Bld) [Volume fraction] 37.8 % Low 38.8-50.0 [facility] Comment on above: Performed By: #### G LULS #### Point of Care testing , Hemoglobin (Bld) [Mass/Vol] 12.4 g/dL Low 13.0-17.0 [facility] Comment on above: Performed By: #### G LULS #### Point of Care testing , Hypochromasia Marked Normal [facility] Comment on above: Performed By: #### G LULS #### Point of Care testing , Lymphocytes/100 WBC (Bld) 18 % Normal 18-42 [facility] Comment on above: Performed By: #### G LULS #### Point of Care testing , MCH (RBC) [Entitic mass] 26.3 pg Low 27.5-35.2 [facility] Comment on above: Performed By: #### G LULS #### Point of Care testing , MCV (RBC) [Entitic vol] 80.0 fL Low 83.5-101 [facility] Comment on above: Performed By: #### G LULS #### Point of Care testing , Mean Corpuscular HGB Conc 32.8 g/dL Normal 32.5-35.6 [facility] Comment on above: Performed By: #### G LULS #### Point of Care testing , Microcytosis Slight Normal [facility] Comment on above: Performed By: #### G LULS #### Point of Care testing , Monocytes/100 WBC (Bld) 4 % Normal 2-11 [facility] Comment on above: Performed By: #### G LULS #### Point of Care testing , Platelet Estimate Normal Normal Normal [facility] Comment on above: Performed By: #### G LULS #### Point of Care testing , Platelet mean volume (Bld) [Entitic vol] 11.0 fL High 6.6-10.1 [facility] Comment on above: Performed By: #### G LULS #### Point of Care testing , Platelet Morphology Normal Normal Normal [facility] Comment on above: Result Comment: PERF ORMED BY: [facility] [address] [place] [address] PATHOLOGIST [employer]SEL ANDRE PERALTA M.D. Performed By: #### G LULS #### Point of Care testing , Platelets (Bld) [#/Vol] 229 10*3/uL Normal 150-450 [facility] Comment on above: Performed By: #### G LULS #### Point of Care testing , Poikilocytosis Marked Normal [facility] Comment on above: Performed By: #### G LULS #### Point of Care testing , Polychromasia Slight Normal [facility] Comment on above: Performed By: #### G LULS #### Point of Care testing , RBC (Bld) [#/Vol] 4.73 10*6/uL Normal 3.90-5.60 [facility] Comment on above: Performed By: #### G LULS #### Point of Care testing , Schistocytes Moderate Normal [facility] Comment on above: Performed By: #### G LULS #### Point of Care testing , Segmented neutrophils/100 WBC (Bld) 77 % High 50-70 [facility] Comment on above: Performed By: #### G LULS #### Point of Care testing , Target Cells Moderate Normal [facility] Comment on above: Performed By: #### G LULS #### Point of Care testing , WBC (Bld) [#/Vol] 4.8 10*3/uL Normal 4.1-10.5 [facility] Comment on above: Performed By: #### G LULS #### Point of Care testing , Eosinophils Auto (Bld) [#/Vo l]Ordered By: Indra Guillory on 07-17-2024 Eosinophils (Bld) [#/Vol] Automated eosinophil count [facility] Eosinophils/100 WBC Auto (Bl d)Ordered By: Indra Guillory on 07-17-2024 Eosinophils/100 WBC (Bld) Automated eosinophil % [facility] Erythrocyte distribution wid th Auto (RBC) [Ratio]Ordered By: Indra Guillory on 07-17-2024 Erythrocyte distribution width (RBC) [Ratio] Erythrocyte distribution width [Ratio] by Automated count High 12.0-14.8 [facility] Erythrocyte morphology findi ng [Identifier] in BloodOrdered By: Indra Guillory on 07-17-2024 RBC morphology finding Nom (Bld) RBC morphology [facility] Globulin Calc (S) [Mass/Vol] Ordered By: Indra Guillory on 07-17-2024 Globulin (S) [Mass/Vol] Serum globulin measurement by calculation (mass/volume) [facility] Glucose Glucometer (BldC) [M ass/Vol]Ordered By: Lisa Hidalgo on 07-17-2024 Glucose [Mass/Vol] Capillary blood gluc ose measurement by glucometer (mass/volume) [facility] Comment on above: Random Glucose Refer ence Range is dependent on time and content of last meal. Glucose of more than 200 mg/dL in a nonstressed, ambulatory subject supports the diagnosis of Diabetes Mellitus. Glucose Poct Glucometerson 0 07-17-2024 Glucose [Mass/Vol] 299 mg/dL Normal [facility] Comment on above: Result Comment: [facility] Glucose Reference Range is dependent on time and content of last meal. Glucose of more than 200 mg/dL in a nonstressed, ambulatory subject supports the diagnosis of Diabetes Mellitus. PERFORMED BY: [address] [place] [address] PATHOLOGIST [employer] COUNSEL ANDRE PERALTA M.D. Performed By: #### G LULS ####Point of Care testing, Glucose [Mass/Vol] 341 mg/dL Normal [facility] Comment on above: Result Comment: [facility] Glucose Reference Range is dependent on time and content of last meal. Glucose of more than 200 mg/dL in a nonstressed, ambulatory subject supports the diagnosis of Diabetes Mellitus. PERFORMED BY: [address] [place] [address] PATHOLOGIST [employer] COUNSEL ANDRE PERALTA M.D. Performed By: #### G LULS #### Point of Care testing , Glucose [Mass/Vol] 386 mg/dL Normal [facility] Comment on above: Result Comment: [facility] Glucose Reference Range is dependent on time and content of last meal. Glucose of more than 200 mg/dL in a nonstressed, ambulatory subject supports the diagnosis of Diabetes Mellitus. PERFORMED BY: [address] [place] [address] PATHOLOGIST [employer] COUNSEL ANDRE PERALTA M.D. Performed By: #### G LULS ####Point of Care testing, Commemt1 Normal [facility] Comment on above: Result Comment: Glu2 : Will Repeat Test Performed By: #### G LULS #### Point of Care testing , Commemt2 WILL NOTIFY DR/RN Normal [facility] Comment on above: Performed By: #### G LULS #### Point of Care testing , Commemt3 Cleaned Meter Normal [facility] Comment on above: Result Comment: PERF ORMED BY: [place] [address] PATHOLOGIST [employer] COUNSEL ANDRE PERALTA M.D. Performed By: #### G LULS #### Point of Care testing , Glucose [Mass/Vol] 406 mg/dL Off scale high [facility] Comment on above: Result Comment: [place] [facility] Glucose Reference Range is dependent on time and content of last meal. Glucose of more than 200 mg/dL in a nonstressed, ambulatory subject supports the diagnosis of Diabetes Mellitus. Performed By: #### G LULS #### Point of Care testing , Commemt1 Normal [facility] Comment on above: Result Comment: Glu2 : WILL NOTIFY DR/RN PERFORMED BY: [address] [place] [id number] PATHOLOGIST [employer] COUNSEL ANDRE PERALTA M.D. Performed By: #### G LULS #### Point of Care testing , Glucose [Mass/Vol] 451 mg/dL Off scale high [facility] Comment on above: Result Comment: [place] [facility] Glucose Reference Range is dependent on time and content of last meal. Glucose of more than 200 mg/dL in a nonstressed, ambulatory subject supports the diagnosis of Diabetes Mellitus. Performed By: #### G LULS #### Point of Care testing , Commemt1 Normal [facility] Comment on above: Result Comment: Glu2 : Will Repeat Test PERFORMED BY: [address] [place] [id number] PATHOLOGIST [employer]SEL ANDRE PERALTA M.D. Performed By: #### G LULS #### Point of Care testing , Glucose [Mass/Vol] 444 mg/dL Off scale high [facility] Comment on above: Result Comment: [place] [facility] Glucose Reference Range is dependent on time and content of last meal. Glucose of more than 200 mg/dL in a nonstressed, ambulatory subject supports the diagnosis of Diabetes Mellitus. Performed By: #### G LULS #### Point of Care testing , Glucose [Mass/volume] in Ser um or PlasmaOrdered By: Indra Guillory on 07-17-2024 Glucose [Mass/Vol] Glucose [Mass/volume ] in Serum or Plasma Invalid Interpretation Code 70-100 [facility] Comment on above: Delta: 191 on -1230ADA recommended reference rangeRandom Glucose Reference Range is dependent on time and content of last meal. Glucose of more than 200 mg/dL in a nonstressed, ambulatory subject supports the diagnosis of Diabetes Mellitus. Helmet cells [Presence] in B lood by Light microscopyOrdered By: Indra Guillory on 07-17-2024 Helmet cells LM Ql (Bld) Helmet cell detection [facility] Hematocrit Auto (Bld) [Volum e fraction]Ordered By: Indra Guillory on 07-17-2024 Hematocrit (Bld) [Volume fraction] Hematocrit [Volume Fraction] of Blood by Automated count Low 38.8-50.0 [facility] Hemoglobin A1c/Hemoglobin.to chrissy in BloodOrdered By: Indra Guillory on 07-17-2024 HbA1c (Bld) [Mass fraction] Hemoglobin A1c percentage High 4.3-5.6 [facility] Comment on above: Increased risk for d iabetes: 5.7 - 6.4diabetes: >6.4glycemic control for adults with diabetes: <7.0 Hemoglobin [Mass/volume] in BloodOrdered By: Indra Guillory on 07-17-2024 Hemoglobin (Bld) [Mass/Vol] Hemoglobin [Mass/volume] in Blood Low 13.0-17.0 [facility] Hypochromia LM Ql (Bld)Order ed By: Indra Guillory on 07-17-2024 Hypochromia Ql (Bld) Hypochromia [Presen ce] in Blood by Light microscopy [facility] INR in Platelet poor plasma by Coagulation assayOrdered By: Indra Guillory on 07-17-2024 INR Coag (PPP) [Relative time] INR in Platelet poor plasma by Coagulation assay [facility] Comment on above: INR Therapeutic [...] with mechanical heart valves: 3 - 4.5 Jairo 07-17-2024 L ----- Specimen: [id number] Received: 07/17/24 Status: LYUDMILA Rico Num: [id number] Spec Type: Impression Subm Dr: Indra Guillory MD Tissues: PATHPER Procedures: PATHREVIEW Age/ Patient Sex Location Account Attending Physician Manolo Vickers 89/M 4N [id number] Lisa Hidalgo MD SPEC NUM: [id number] RECD: 07/17/24 STATUS: LYUDMILA REBraulio NUM: [id number] MARANDA: 07/17/24- SUBM DR: Indra Guillory MD ENTERED: 07/17/[address]: SPEC TYPE: Impression DEPT: TX ORDERED: PATHREVIEW ORDERED: PATHREVIEW Pathologist Review Abnormal CBC for peripheral blood smear review: -Mild anemia of mild microcytic type, including moderate anisocytosis and mild poikilocytosis with mild hypochromia, mild microcytosis, quite a few target cells, few acanthocytes or crenated cells, and occasional schistocytes and spherocytes, rare ovalocytes, and at least rare polychromatophils -Few occasional large platelets and at least 1 giant platelet -No morphological abnormality of the leukocyte or platelet population Comment: -The cause of mild anemia in the elderly male patient is probably compatible with anemia of the chronic disease type including noted history of CHF. 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 Microcytosis with anemia is also a feature of iron deficiency, and may correspond to the stated history of GI bleeding. Continuous clinical correlation and CBC laboratory follow- ups are also suggested [facility] [id number] Specimen: Received: 07/17/24 Status: LOVESarah Gómez Num: [id number] Spec Type: Impression Subm Dr: Indra Guillory MD Tissues: PATHPER Procedures: PATHREVIEW Patient: Manolo Vickers [id number] (Continued) Specimen: Received: 07/17/24 (Continued) Signed (signature on file) Donovan Bunch MD 07/17/24 1128 Specimen: Received: 07/17/24 Status: LYUDMILA Gómez Num: [id number] Spec Type: Impression Subm Dr: Indra Guillory MD Tissues: PATHPER Procedures: PATHREVIEW Patient: Manolo Vickers [id number] (Continued) Specimen: [id number] Received: 07/17/24-851 (Continued) CBC Date Time Test Result Flag (u) Normal Range 07/16/24 1230 Neut % (Auto) 64.8 . % Lymp % (Auto) 18.9 . % [place] % (Auto) 12.8 . % Eos % (Auto) 2.7 . % Baso % (Auto) 0.8 . % NRBC% 0.2 0-0.5 /100 WBC Neut # (Auto) 4.7 1.8-7.7 x10E3/uL Lymph # (Auto) 1.4 1.00-4.8 x10E3/uL [place] # (Auto) 0.9 H 0.0-0.8 x10E3/uL Eos # (Auto) 0.2 0.0-0.45 x10E3/uL Baso# (Auto) 0.1 0.0-0.2 x10E3/uL 07/17/24 0521 WBC 4.8 4.1-10.5 X10E3/uL RBC 4.73 3.90-5.60 x10E6/uL HGB 12.4 L 13.0-17.0 g/dL HCT 37.8 L 38.8-50.0 % MCV 80.0 L 83.5-101 fl MCH 26.3 L 27.5-35.2 pg MCHC 32.8 32.5-35.6 g/dL RDW 19.7 H 12.0-14.8 % Plt 229 150-450 x10E3/uL MPV 11.0 H 6.6-10.1 fl Seg 77 H 50-70 % Band 1 0-5 % Lymph 18 18-42 % [place] 4 2-11 % Polychrom Slight Hypochrom Marked Poik Marked Aniso Moderate Micro Slight Schisto Moderate Target Moderate Helmet Cells Slight Crenated RBC Moderate Acantho Marked Plt Est Normal Normal Plt Morphology Normal Normal Specimen: [id number] Received: 07/17/24 Status: LOVESarah Gómez Num: [id number] Spec Type: Impression Subm Dr: Indra Guillory MD Tissues: PATHPER Procedures: PATHREVIEW Patient: Manolo Vickers [id number] (Continued) Signed (signature on file) IreneSalo Julio C (more content not included)... Normal [facility] Leukocytes [#/volume] correc robert for nucleated erythrocytes in Blood by Automated counOrdered By: Indra Guillory on 07-17-2024 WBC corrected for nucl RBC Auto (Bld) [#/Vol] Leukocytes [#/volume] corrected for nucleated erythrocytes in Blood by Automated coun 4.1-10.5 [facility] Lymphocytes Auto (Bld) [#/Vo l]Ordered By: Indra Guillory on 07-17-2024 Lymphocytes (Bld) [#/Vol] Lymphocytes [#/volume] in Blood by Automated count [facility] Lymphocytes/100 WBC Auto (Bl d)Ordered By: Indra Guillory on 07-17-2024 Lymphocytes/100 WBC (Bld) Lymphocytes/100 leukocytes in Blood by Automated count [facility] Lymphocytes/100 WBC Manual c nt (Bld)Ordered By: Indra Guillory on 07-17-2024 Lymphocytes/100 WBC (Bld) Lymphocytes/100 leukocytes in Blood by Manual count 18-42 [facility] MCH Auto (RBC) [Entitic mass ]Ordered By: Indra Guillory on 07-17-2024 MCH (RBC) [Entitic mass] MCH [Entitic mass] by Automated count Low 27.5-35.2 [facility] MCHC Auto (RBC) [Mass/Vol]Or dered By: Indra Guillory on 07-17-2024 MCHC (RBC) [Mass/Vol] MCHC [Mass/volume] by Automated count 32.5-35.6 [facility] MCV Auto (RBC) [Entitic vol] Ordered By: Indra Guillory on 07-17-2024 MCV (RBC) [Entitic vol] MCV [Entitic volume] by Automated count Low 83.5-101 [facility] Microcytes LM Ql (Bld)Ordere d By: Indra Guillory on 07-17-2024 Microcytes Ql (Bld) Microcytes [Presence ] in Blood by Light microscopy [facility] Monocytes Auto (Bld) [#/Vol] Ordered By: Indra Guillory on 07-17-2024 Monocytes (Bld) [#/Vol] Automated blood monocyte count [facility] Monocytes/100 WBC Auto (Bld) Ordered By: Indra Guillory on 07-17-2024 Monocytes/100 WBC (Bld) Automated monocyte % [facility] Monocytes/100 WBC Manual cnt (Bld)Ordered By: Indra Guillory on 07-17-2024 Monocytes/100 WBC (Bld) Monocytes/100 leukocytes in Blood by Manual count -11 [facility] Neutrophils Auto (Bld) [#/Vo l]Ordered By: Indra Guillory on 07-17-2024 Neutrophils (Bld) [#/Vol] Neutrophils [#/volume] in Blood by Automated count [facility] Neutrophils/100 WBC Auto (Bl d)Ordered By: Indra Guillory on 07-17-2024 Neutrophils/100 WBC (Bld) Automated neutrophil % [facility] No Panel InformationOrdered By: Indra Guillory on 07-17-2024 Bedside Glucose #[address]/rn [facility] Bedside Glucose #3 Comment Cleaned meter [facility] Bedside Glucose Comment See comment [facility] Comment on above: Glu2: Will Repeat Te st Estimated GFR (CKD-EPI) > 60.0 mL/Min [facility] Creatinine Clearance (Chem 45.38 [facility] Slides for Pathologist Review Ordered path review [facility] Nucleated erythrocytes [Pres ence] in Blood by Automated countOrdered By: Indra Guillory on 07-17-2024 Nucleated RBC Auto Ql (Bld) Nucleated erythrocytes [Presence] in Blood by Automated count [facility] Partial Thromboplastin Timeo n 07-17-2024 aPTT Coag (Bld) [Time] 30.6 s Normal 25.1-36.5 [facility] Comment on above: Result Comment: A he matocrit value greater than 55% may lead to inaccurate results in coagulation testing. Patients having hematocrit values >55% require a special collection tube for coagulation studies. Please contact the laboratory at [phone] for redraw instructions. PERFORMED BY: [facility] [address] [place] [address] PATHOLOGIST [employer] COUNSEL ANDRE PERALTA M.D. Performed By: #### G LULS #### Point of Care testing , Pathologist Slide Reviewon 0 07-17-2024 Pathologist Slide Review Ordered Path Review Normal [facility] Comment on above: Result Comment: PERF ORMED BY: [facility] [address] [place] [address] PATHOLOGIST [employer] COUNSEL ANDRE PERALTA M.D. Performed By: #### G LULS #### Point of Care testing , Pathology study report docum entOrdered By: Donovan Bunch on 07-17-2024 Pathology study [facility] Other Platelet adequacy [Presence] in Blood by Light microscopyOrdered By: Indra Guillory on 07-17-2024 Platelets LM Ql (Bld) Platelet adequacy [Presence] in Blood by Light microscopy Normal [facility] Platelet mean volume Auto (B ld) [Entitic vol]Ordered By: Indra Guillory on 07-17-2024 Platelet mean volume (Bld) [Entitic vol] Platelet mean volume [Entitic volume] in Blood by Automated count High 6.6-10.1 [facility] Platelet morphology finding [Identifier] in BloodOrdered By: Indra Guillory on 07-17-2024 Platelet morphology finding Nom (Bld) Platelet morphology finding [Identifier] in Blood Normal [facility] Platelets Auto (Bld) [#/Vol] Ordered By: Indra Guillory on 07-17-2024 Platelets (Bld) [#/Vol] Platelets [#/volume] in Blood by Automated count 150-450 [facility] Poikilocytosis [Presence] in Blood by Light microscopyOrdered By: Indra Guillory on 07-17-2024 Poikilocytosis LM Ql (Bld) Poikilocytosis [Presence] in Blood by Light microscopy [facility] Polychromasia [Presence] in Blood by Light microscopyOrdered By: Indra Guillory on 07-17-2024 Polychromasia LM Ql (Bld) Polychromasia [Presence] in Blood by Light microscopy [facility] Potassium [Moles/volume] in Serum or PlasmaOrdered By: Indra Guillory on 07-17-2024 Potassium [Moles/Vol] Potassium [Moles/v olume] in Serum or Plasma 3.5-5.1 [facility] Protein [Mass/volume] in Ser um or PlasmaOrdered By: Indra Guillory on 07-17-2024 Protein [Mass/Vol] Protein [Mass/volume ] in Serum or Plasma 6.4-8.9 [facility] Prothrombin Time INRon 07-17 INR Coag (PPP) [Relative time] 1.3 {INR} Normal [facility] Comment on above: Result [...] valves: 3 - 4.5 Performed By: #### G LULS #### Point of Care testing , PT Coag (PPP) [Time] 14.5 s High 9.0-12.9 [facility] Comment on above: Result Comment: A he matocrit value greater than 55% may lead to inaccurate results in coagulation testing. Patients having hematocrit values >55% require a special collection tube for coagulation studies. Please contact the laboratory at [phone] for redraw instructions. Performed By: #### G LULS #### Point of Care testing , Prothrombin time (PT)Ordered By: Indra Guillory on 07-17-2024 PT Coag (PPP) [Time] Prothrombin time (PT) High 9.0- 12.9 [facility] Comment on above: A hematocrit value g reater than 55% may lead to inaccurate results in coagulation testing. Patients having hematocrit values >55% require a special collection tube for coagulation studies. Please contact the laboratory at [phone] for redraw instructions. RBC Auto (Bld) [#/Vol]Ordere d By: Indra Guillory on 07-17-2024 RBC (Bld) [#/Vol] Erythrocytes [#/volu me] in Blood by Automated count 3.90-5.60 [facility] Respiratory (Upper) Panel, P CRon 07-17-2024 Respiratory (Upper) Panel, PCR Results called at 0548 on 07/17/24 Adenovirus Not detected Bordetella parapertussis Not detected Chlamydia pneumoniae Not detected Coronavirus 229E Not detected Coronavirus HKU1 Not detected Coronavirus NL63 Not detected Coronavirus OC43 Not detected Influenza A Not detected Influenza B Not detected Human Metapneumovirus Not detected Mycoplasma pneumoniae Not detected Parainfluenza Virus 1 Not detected Parainfluenza Virus 2 Not detected Parainfluenza Virus 3 Not detected Parainfluenza Virus 4 Not detected Bordetella pertussis-ptxP Not detected Human Rhino/Enterovirus Detected Resp. Syncytial Virus Not detected COVID-19 Detected/Not Detected Not detected Blank Space ---- FLUA TEST INCLUDES Influenza A tests for the following clinically FLUA TEST INCLUDES significant subtypes: FLUA TEST INCLUDES - Influenza A FLUA TEST INCLUDES - Influenza A H1 FLUA TEST INCLUDES - Influenza A H1 2009 FLUA TEST INCLUDES - Influenza A H3 Blank Space ---- PERFORMED BY: [facility] [place] [address] PATHOLOGIST [employer] COUN[employer] ANDER PERALTA M.D. Normal [facility] Comment on above: Performed By: #### G RIOS #### Point of Care testing , Respiratory pathogens DNA an d RNA panel - Nasopharynx by ANASTASIA with non-probe detectionOrdered By: Indra Guillory on 07-17-2024 Respiratory pathogens DNA and RNA panel ANASTASIA+non-probe (Nph) Respiratory pathogens DNA and RNA panel - Nasopharynx by ANASTASIA with non-probe detection [facility] Respiratory pathogens DNA and RNA panel ANASTASIA+non-probe (Nph) Respiratory pathogens DNA and RNA panel - Nasopharynx by ANASTASIA with non-probe detection [facility] Schistocytes [Presence] in B lood by Light microscopyOrdered By: Indra Guillory on 07-17-2024 Schistocytes LM Ql (Bld) Schistocytes [Presence] in Blood by Light microscopy [facility] Segmented neutrophils/100 WB C Manual cnt (Bld)Ordered By: Indra Guillory on 07-17-2024 Segmented neutrophils/100 WBC (Bld) Manual blood segmented neutrophils/100 leukocytes High 50-70 [facility] Serum or plasma albumin/glob ulin mass ratioOrdered By: Indra Guillory on 07-17-2024 Albumin/Globulin [Mass ratio] Serum or plasma albumin/globulin mass ratio [facility] Serum or plasma anion gap de terminationOrdered By: Indra Guillory on 07-17-2024 Anion gap [Moles/Vol] Serum or plasma an ion gap determination 6.0-15.0 [facility] Sodium [Moles/volume] in Ser um or PlasmaOrdered By: Indra Guillory on 07-17-2024 Sodium [Moles/Vol] Sodium [Moles/volume ] in Serum or Plasma Low 136-145 [facility] Target cells [Presence] in B lood by Light microscopyOrdered By: Indra Guillory on 07-17-2024 Target cells LM Ql (Bld) Target cells [facility] Urea nitrogen [Mass/volume] in Serum or PlasmaOrdered By: Indra Guillory on 07-17-2024 Urea nitrogen [Mass/Vol] Urea nitrogen [Mass/volume] in Serum or Plasma 7-25 [facility] WBC Auto (Bld) [#/Vol]Ordere d By: Indra Guillory on 07-17-2024 WBC (Bld) [#/Vol] Leukocytes [#/volume ] in Blood by Automated count 4.1-10.5 [facility] aPTT in Platelet poor plasma by Coagulation assayOrdered By: Indra Guillory on 07-17-2024 aPTT Coag (PPP) [Time] Activated partial thromboplastin time (aPTT) in platelet poor plasma by coagulation a 25.1-36.5 [facility] Comment on above: A hematocrit value g reater than 55% may lead to inaccurate results in coagulation testing. Patients having hematocrit values >55% require a special collection tube for coagulation studies. Please contact the laboratory at [phone] for redraw instructions. B-Type Natriuretic Peptideon 07-16-2024 Natriuretic peptide B (Bld) [Mass/Vol] 2052.0 pg/mL High 5-100 [facility] Comment on above: Result Comment: PERF ORMED BY: [facility] [address] [place] [address] PATHOLOGIST [employer] COUNSEL ANDRE PERALTA M.D. Performed By: #### P T, BMP, BNP, HS TROP, CK, CBC ####[place] [id number] [place] [id number] [facility] Basic Metabolic Panelon Anion gap [Moles/Vol] 10.2 mmol/L Normal 6.0-15.0 [facility] Comment on above: Performed By: #### P T, BMP, BNP, HS TROP, CK, CBC ####[place] [id number] [facility] Calcium [Mass/Vol] 8.8 mg/dL Normal 8.6-10.3 [facility] Comment on above: Performed By: #### P T, BMP, BNP, HS TROP, CK, CBC ####[place] [id number] [facility] Chloride [Moles/Vol] 99 mmol/L Normal 98-107 [facility] Comment on above: Performed By: #### P T, BMP, BNP, HS TROP, CK, CBC ####[place] [id number] [place] [id number] [facility] CO2 [Moles/Vol] 28.0 mmol/L Normal 21.0-31.0 [facility] Comment on above: Performed By: #### P T, BMP, BNP, HS TROP, CK, CBC ####[place] [id number] [facility] Creatinine [Mass/Vol] 0.82 mg/dL Normal 0.70-1.30 [facility] Comment on above: Performed By: #### P T, BMP, BNP, HS TROP, CK, CBC ####[address] Creatinine Clr Calc Pharmacy 60.91 Normal [facility] Comment on above: Result Comment: PERF ORMED BY: [facility] [address] [place] [address] PATHOLOGIST [employer] COUNSEL ANDRE PERALTA M.D. Performed By: #### P T, BMP, BNP, HS TROP, CK, CBC ####[address] GFR/1.73 sq M.predicted MDRD (S/P/Bld) [Vol rate/Area] mL/min/{1.73_m2} Normal [facility] Comment on above: Performed By: #### P T, BMP, BNP, HS TROP, CK, CBC ####[address] Glucose [Mass/Vol] 191 mg/dL High 70-100 [facility] Comment on above: Result Comment: Gray Glucose Reference Range is dependent on time and content of last meal. Glucose of more than 200 mg/dL in a nonstressed, ambulatory subject supports the diagnosis of Diabetes Mellitus. ADA recommended reference range Performed By: #### P T, BMP, BNP, HS TROP, CK, CBC ####[place] [id number] [facility] Potassium [Moles/Vol] 4.2 mmol/L Normal 3.5-5.1 [facility] Comment on above: Performed By: #### P T, BMP, BNP, HS TROP, CK, CBC ####[facility] [id number] Sodium [Moles/Vol] 133 mmol/L Low 136-145 [facility] Comment on above: Performed By: #### P T, BMP, BNP, HS TROP, CK, CBC ####[facility] Urea nitrogen [Mass/Vol] 18 mg/dL Normal 7-25 [facility] Comment on above: Performed By: #### P T, BMP, BNP, HS TROP, CK, CBC ####[facility] Basophils Auto (Bld) [#/Vol] Ordered By: PROVIDER TEMP on 07-16-2024 Basophils (Bld) [#/Vol] Automated basophil count 0.0-0.2 [facility] Basophils/100 WBC Auto (Bld) Ordered By: PROVIDER TEMP on 07-16-2024 Basophils/100 WBC (Bld) Automated basophil % . [facility] CT angio chest PE protocolon 07-16-2024 CT angio chest PE protocol [facility] [place] [address] [place] [address] CT Scan Report Signed Patient: Manolo Vickers MR#: [id number] 353 : 1935 Acct:[id number] Age/Sex: 89 / M ADM Date: 07/16/24 Loc: ER Room: Type: [facility] ER Attending Dr: Copies to: Bertin Yepez DO Ordering Provider: Bertin Yepez DO Date of Service: 07/16/24 CT/CT angio chest PE protocol: r/o pe CT angio chest PE protocol 07/16/2024 3:29 PM SIGN AND SYMPTOMS: Left-sided chest pain, rule out PE CONTRAST: 90 mL of intravenous Isovue-370 TECHNIQUE: Multidetector CT axial slices of the chest were obtained with IV contrast. Multiplanar and 3-D reformats were performed and viewed on a separate workstation and reviewed to further define anatomy and possible pathology. CT was performed with one or more of the following dose reduction techniques: Automated exposure control, adjustment of the mA and/or kV according to patient size, or use of iterative reconstruction technique. COMPARISON: 12/26/2018 and 05/25/2024. FINDINGS: Lower neck: Thyroid gland within normal limits, no supraclavicle adenopathy. Vessels: Atherosclerotic changes are noted in the thoracic aorta, origins of the great vessels, and coronary arteries. There is no evidence of pulmonary embolism. Mediastinum and Amna: Within normal limits. Heart: There is cardiomegaly. There is a small pericardial effusion.. Airways: Within normal limits Lungs: Interstitial prominence is noted with intralobular septal thickening in a few areas of nodular opacity possibly relating to volume overload and edema. Pleura: Within normal limits. Chest Wall: Within normal limits. Upper Abdomen: Simple cysts are noted in the renal cortices requiring no further follow-up. There is evidence of prior cholecystectomy. Bones: Degenerative changes are noted in the thoracolumbar spine. There is a compression deformity of the T5 superior endplate is unchanged when compared to radiographs from 05/25/2024. Degenerative changes are noted in the shoulders. CT/CT angio chest PE protocol IMPRESSION: There is no pulmonary embolism. There is cardiomegaly with a small pericardial effusion as well as interstitial edema in the areas of developing pulmonary edema suspicious for congestive heart failure. Impression dictated by: Fidencio Valentin M.D.07/16/2024 4:48 PM Dictation Location: [place] [address] Transcribed By: ERIBERTO 07/16/24 1648 Dictated By: Fidencio Valetnin II, MD 07/16/24 1636 Signed By: 07/16/24 1648 Normal [facility] Calcium [Mass/volume] in Ser um or PlasmaOrdered By: PROVIDER TEMP on 07-16-2024 Calcium [Mass/Vol] Calcium [Mass/volume ] in Serum or Plasma 8.6-10.3 [facility] Carbon dioxide, total [Moles /volume] in Serum or PlasmaOrdered By: PROVIDER TEMP on 07-16-2024 CO2 [Moles/Vol] Carbon dioxide, tota l [Moles/volume] in Serum or Plasma 21.0-31.0 [facility] Chloride [Moles/volume] in S jihan or PlasmaOrdered By: PROVIDER TEMP on 07-16-2024 Chloride [Moles/Vol] Chloride [Moles/vol ume] in Serum or Plasma 98-107 [facility] Complete Blood Count Auto Di ffon 07-16-2024 Basophils (Bld) [#/Vol] 0.1 10*3/uL Normal 0.0-0.2 [facility] Comment on above: Result Comment: PERF ORMED BY: [facility] [address] [place] [address] PATHOLOGIST [employer] COUNSEL ANDRE PERALTA M.D. Performed By: #### P T, BMP, BNP, HS TROP, CK, CBC ####[address] Basophils/100 WBC (Bld) 0.8 % Normal . [facility] Comment on above: Performed By: #### P T, BMP, BNP, HS TROP, CK, CBC ####[address] Eosinophils (Bld) [#/Vol] 0.2 10*3/uL Normal 0.0-0.45 [facility] Comment on above: Performed By: #### P T, BMP, BNP, HS TROP, CK, CBC ####[address] Eosinophils/100 WBC (Bld) 2.7 % Normal . [facility] Comment on above: Performed By: #### P T, BMP, BNP, HS TROP, CK, CBC ####[address] Erythrocyte distribution width (RBC) [Ratio] 19.9 % High 12.0-14.8 [facility] Comment on above: Performed By: #### P T, BMP, BNP, HS TROP, CK, CBC ####[address] Hematocrit (Bld) [Volume fraction] 35.8 % Low 38.8-50.0 [facility] Comment on above: Performed By: #### P T, BMP, BNP, HS TROP, CK, CBC ####[address] Hemoglobin (Bld) [Mass/Vol] 11.7 g/dL Low 13.0-17.0 [facility] Comment on above: Performed By: #### P T, BMP, BNP, HS TROP, CK, CBC ####[address] Lymphocytes (Bld) [#/Vol] 1.4 10*3/uL Normal 1.00-4.8 [facility] Comment on above: Performed By: #### P T, BMP, BNP, HS TROP, CK, CBC ####[address] Lymphocytes/100 WBC (Bld) 18.9 % Normal . [facility] Comment on above: Performed By: #### P T, BMP, BNP, HS TROP, CK, CBC ####[address] MCH (RBC) [Entitic mass] 25.9 pg Low 27.5-35.2 [facility] Comment on above: Performed By: #### P T, BMP, BNP, HS TROP, CK, CBC ####[address] MCV (RBC) [Entitic vol] 79.7 fL Low 83.5-101 [facility] Comment on above: Performed By: #### P T, BMP, BNP, HS TROP, CK, CBC ####[address] Mean Corpuscular HGB Conc 32.5 g/dL Normal 32.5-35.6 [facility] Comment on above: Performed By: #### P T, BMP, BNP, HS TROP, CK, CBC ####[address] Monocytes (Bld) [#/Vol] 0.9 10*3/uL High 0.0-0.8 [facility] Comment on above: Performed By: #### P T, BMP, BNP, HS TROP, CK, CBC ####[address] Monocytes/100 WBC (Bld) 17.82 % Normal 0.00-20.00 [facility] Comment on above: Result Comment: For adults in ED, MDW > 20.0 may be associated with a higher risk of sepsis during the first 12 hrs of hospital admission Performed By: #### P T, BMP, BNP, HS TROP, CK, CBC ####[address] Monocytes/100 WBC (Bld) 12.8 % Normal . [facility] Comment on above: Performed By: #### P T, BMP, BNP, HS TROP, CK, CBC ####[address] Neutrophils (Bld) [#/Vol] 4.7 10*3/uL Normal 1.8-7.7 [facility] Comment on above: Performed By: #### P T, BMP, BNP, HS TROP, CK, CBC ####[address] Neutrophils/100 WBC (Bld) 64.8 % Normal . [facility] Comment on above: Performed By: #### P T, BMP, BNP, HS TROP, CK, CBC ####[address] NRBC% 0.2 /100{WBC} Normal 0-0.5 [facility] Comment on above: Performed By: #### P T, BMP, BNP, HS TROP, CK, CBC ####[address] Platelet mean volume (Bld) [Entitic vol] 10.9 fL High 6.6-10.1 [facility] Comment on above: Performed By: #### P T, BMP, BNP, HS TROP, CK, CBC ####[address] Platelets (Bld) [#/Vol] 210 10*3/uL Normal 150-450 [facility] Comment on above: Performed By: #### P T, BMP, BNP, HS TROP, CK, CBC ####[address] RBC (Bld) [#/Vol] 4.50 10*6/uL Normal 3.90-5.60 [facility] Comment on above: Performed By: #### P T, BMP, BNP, HS TROP, CK, CBC ####[address] WBC (Bld) [#/Vol] 7.2 10*3/uL Normal 4.1-10.5 [facility] Comment on above: Performed By: #### P T, BMP, BNP, HS TROP, CK, CBC ####[place] [id number] [facility] Creatine Kinaseon 07-16-2024 CK [Catalytic activity/Vol] 136 U/L Normal 30-223 [facility] Comment on above: Performed By: #### P T, BMP, BNP, HS TROP, CK, CBC ####[address] Creatine kinase [Enzymatic a ctivity/volume] in Serum or PlasmaOrdered By: PROVIDER TEMP on 07-16-2024 CK [Catalytic activity/Vol] Creatine kinase [Enzymatic activity/volume] in Serum or Plasma 30-223 [facility] Creatinine [Mass/volume] in Serum or PlasmaOrdered By: PROVIDER TEMP on 07-16-2024 Creatinine [Mass/Vol] Creatinine [Mass/v olume] in Serum or Plasma 0.70-1.30 [facility] ECG 12 lead ECGon 07-16-2024 ECG 12 lead ECG [facility] [place] [address] [place] [address] Electrocardiograph Report Signed Patient: Manolo Vickers MR#: [id number] 353 : 1935 Acct:[id number] Age/Sex: 89 / M ADM Date: 07/16/24 Loc: Room: [address] [place] [address] Type: ADM INOo Attending Dr: Indra Guillory MD Ordering Provider: Bertin Yepez DO Date of Service: 07/16/2412/04/1411 ECG/ECG 12 lead ECG: Chest Pain Copies to: Test Reason : Blood Pressure : */* mmHG Vent. Rate : 61 BPM Atrial Rate : 61 BPM P-R Int : 116 ms QRS Dur : 96 ms QT Int : 478 ms P-R-T Axes : 70 69 255 degrees QTcB Int : 481 ms Atrial-paced rhythm Confirmed by Bertin Yepez DO ([id number]) on 07/16/2024 8:00:21 PM Referred By: Electronically Signed By: Bertin Yepez DO Transcribed By: MUS Signed By Bertin Yepez DO 1999 Normal [facility] ECG 12 lead ECG [place] [address] Electrocardiograph Report Signed Patient: Manolo Vickers MR#: [id number] 353 : 1935 Acct:[id number] Age/Sex: 89 / M ADM Date: 07/16/24 Loc: Room: [address] [place] [address] Type: ADM INOo Attending Dr: Indra Guillory MD Ordering Provider: Bertin Yepez DO Date of Service: 07/16/2412/03/1142 ECG/ECG 12 lead ECG: Chest Pain Copies to: Test Reason : Blood Pressure : 152/72 mmHG Vent. Rate : 63 BPM Atrial Rate : 63 BPM P-R Int : 242 ms QRS Dur : 102 ms QT Int : 476 ms P-R-T Axes : 73 77 241 degrees QTcB Int : 487 ms Atrial-paced rhythm Confirmed by Bertin Yepez DO ([id number]) on 07/16/2024 8:01:11 PM Referred By: Electronically Signed By: Bertin Yepez DO Transcribed By: MUS Signed By Bertin Yepez DO 2000 Normal [facility] Eosinophils Auto (Bld) [#/Vo l]Ordered By: PROVIDER TEMP on 07-16-2024 Eosinophils (Bld) [#/Vol] Automated eosinophil count 0.0-0.45 [facility] Eosinophils/100 WBC Auto (Bl d)Ordered By: PROVIDER TEMP on 07-16-2024 Eosinophils/100 WBC (Bld) Automated eosinophil % . [facility] Erythrocyte distribution wid th Auto (RBC) [Ratio]Ordered By: PROVIDER TEMP on 07-16-2024 Erythrocyte distribution width (RBC) [Ratio] Erythrocyte distribution width [Ratio] by Automated count High 12.0-14.8 [facility] Glucose Glucometer (BldC) [M ass/Vol]Ordered By: Indra Guillory on 07-16-2024 Glucose [Mass/Vol] Capillary blood gluc ose measurement by glucometer (mass/volume) [facility] Comment on above: Random Glucose Refer ence Range is dependent on time and content of last meal. Glucose of more than 200 mg/dL in a nonstressed, ambulatory subject supports the diagnosis of Diabetes Mellitus. Glucose Poct Glucometerson 0 07-16-2024 Glucose [Mass/Vol] 327 mg/dL Normal [facility] Comment on above: Result Comment: Gray om Glucose Reference Range is dependent on time and content of last meal. Glucose of more than 200 mg/dL in a nonstressed, ambulatory subject supports the diagnosis of Diabetes Mellitus. PERFORMED BY: [facility] [address] [place] [address] PATHOLOGIST QUEEN[employer] COUNSEL ANDRE PERALTA M.D. Performed By: #### G LUMARYA #### Point of Care testing , Glucose [Mass/volume] in Ser um or PlasmaOrdered By: PROVIDER TEMP on 07-16-2024 Glucose [Mass/Vol] Glucose [Mass/volume ] in Serum or Plasma High 70-100 [facility] Comment on above: ADA recommended refe rence rangeRandom Glucose Reference Range is dependent on time and content of last meal. Glucose of more than 200 mg/dL in a nonstressed, ambulatory subject supports the diagnosis of Diabetes Mellitus. Hematocrit Auto (Bld) [Volum e fraction]Ordered By: PROVIDER TEMP on 07-16-2024 Hematocrit (Bld) [Volume fraction] Hematocrit [Volume Fraction] of Blood by Automated count Low 38.8-50.0 [facility] Hemoglobin [Mass/volume] in BloodOrdered By: PROVIDER TEMP on 07-16-2024 Hemoglobin (Bld) [Mass/Vol] Hemoglobin [Mass/volume] in Blood Low 13.0-17.0 [facility] INR in Platelet poor plasma by Coagulation assayOrdered By: PROVIDER TEMP on 07-16-2024 INR Coag (PPP) [Relative time] INR in Platelet poor plasma by Coagulation assay [facility] Comment on above: INR Therapeutic [...] with mechanical heart valves: 3 - 4.5 Leukocytes [#/volume] correc robert for nucleated erythrocytes in Blood by Automated counOrdered By: PROVIDER TEMP on 07-16-2024 WBC corrected for nucl RBC Auto (Bld) [#/Vol] Leukocytes [#/volume] corrected for nucleated erythrocytes in Blood by Automated coun 4.1-10.5 [facility] Lymphocytes Auto (Bld) [#/Vo l]Ordered By: PROVIDER TEMP on 07-16-2024 Lymphocytes (Bld) [#/Vol] Lymphocytes [#/volume] in Blood by Automated count 1.00-4.8 [facility] Lymphocytes/100 WBC Auto (Bl d)Ordered By: PROVIDER TEMP on 07-16-2024 Lymphocytes/100 WBC (Bld) Lymphocytes/100 leukocytes in Blood by Automated count . [facility] MCH Auto (RBC) [Entitic mass ]Ordered By: PROVIDER TEMP on 07-16-2024 MCH (RBC) [Entitic mass] MCH [Entitic mass] by Automated count Low 27.5-35.2 [facility] MCHC Auto (RBC) [Mass/Vol]Or dered By: PROVIDER TEMP on 07-16-2024 MCHC (RBC) [Mass/Vol] MCHC [Mass/volume] by Automated count 32.5-35.6 [facility] MCV Auto (RBC) [Entitic vol] Ordered By: PROVIDER TEMP on 07-16-2024 MCV (RBC) [Entitic vol] MCV [Entitic volume] by Automated count Low 83.5-101 [facility] Monocyte distribution width [Entitic volume] in Blood by AutomatedOrdered By: PROVIDER TEMP on 07-16-2024 Monocyte distribution width Auto (Bld) [Entitic vol] Monocyte distribution width [Entitic volume] in Blood by Automated 0.00-20.00 [facility] Comment on above: For adults in ED, MD W > 20.0 may be associated with a higher risk of sepsis during the first 12 hrs of hospital admission Monocytes Auto (Bld) [#/Vol] Ordered By: PROVIDER TEMP on 07-16-2024 Monocytes (Bld) [#/Vol] Automated blood monocyte count High 0.0-0.8 [facility] Monocytes/100 WBC Auto (Bld) Ordered By: PROVIDER TEMP on 07-16-2024 Monocytes/100 WBC (Bld) Automated monocyte % . [facility] Natriuretic peptide B [Mass/ Vol]Ordered By: PROVIDER TEMP on 07-16-2024 Natriuretic peptide B (Bld) [Mass/Vol] BNP ser/plas High 5-100 [facility] Neutrophils Auto (Bld) [#/Vo l]Ordered By: PROVIDER TEMP on 07-16-2024 Neutrophils (Bld) [#/Vol] Neutrophils [#/volume] in Blood by Automated count 1.8-7.7 [facility] Neutrophils/100 WBC Auto (Bl d)Ordered By: PROVIDER TEMP on 07-16-2024 Neutrophils/100 WBC (Bld) Automated neutrophil % . [facility] No Panel InformationOrdered By: PROVIDER TEMP on 07-16-2024 Estimated GFR (CKD-EPI) > 60.0 mL/Min [facility] Creatinine Clearance (Chem 60.91 [facility] Nucleated erythrocytes [Pres ence] in Blood by Automated countOrdered By: PROVIDER TEMP on 07-16-2024 Nucleated RBC Auto Ql (Bld) Nucleated erythrocytes [Presence] in Blood by Automated count 0-0.5 [facility] Platelet mean volume Auto (B ld) [Entitic vol]Ordered By: PROVIDER TEMP on 07-16-2024 Platelet mean volume (Bld) [Entitic vol] Platelet mean volume [Entitic volume] in Blood by Automated count High 6.6-10.1 [facility] Platelets Auto (Bld) [#/Vol] Ordered By: PROVIDER TEMP on 07-16-2024 Platelets (Bld) [#/Vol] Platelets [#/volume] in Blood by Automated count 150-450 [facility] Potassium [Moles/volume] in Serum or PlasmaOrdered By: PROVIDER TEMP on 07-16-2024 Potassium [Moles/Vol] Potassium [Moles/v olume] in Serum or Plasma 3.5-5.1 [facility] Prothrombin Time INRon 07-16 INR Coag (PPP) [Relative time] 1.2 {INR} Normal [facility] Comment on above: Result [...] with mechanical heart valves: 3 - 4.5 PERFORMED BY: [facility] [address] [place] [address] PATHOLOGIST [employer] COUNSEL ANDRE PERALTA M.D. Performed By: #### P T, BMP, BNP, HS TROP, CK, CBC ####[place] [id number] [place] [id number] [facility] PT Coag (PPP) [Time] 14.3 s High 9.0-12.9 [facility] Comment on above: Result Comment: A he matocrit value greater than 55% may lead to inaccurate results in coagulation testing. Patients having hematocrit values >55% require a special collection tube for coagulation studies. Please contact the laboratory at [phone] for redraw instructions. Performed By: #### P T, BMP, BNP, HS TROP, CK, CBC ####[facility] [id number] [place] [address] [facility] Prothrombin time (PT)Ordered By: PROVIDER TEMP on 07-16-2024 PT Coag (PPP) [Time] Prothrombin time (PT) High 9.0- 12.9 [facility] Comment on above: A hematocrit value g reater than 55% may lead to inaccurate results in coagulation testing. Patients having hematocrit values >55% require a special collection tube for coagulation studies. Please contact the laboratory at [phone] for redraw instructions. RBC Auto (Bld) [#/Vol]Ordere d By: PROVIDER TEMP on 07-16-2024 RBC (Bld) [#/Vol] Erythrocytes [#/volu me] in Blood by Automated count 3.90-5.60 [facility] Serum or plasma anion gap de terminationOrdered By: PROVIDER TEMP on 07-16-2024 Anion gap [Moles/Vol] Serum or plasma an ion gap determination 6.0-15.0 [facility] Sodium [Moles/volume] in Ser um or PlasmaOrdered By: PROVIDER TEMP on 07-16-2024 Sodium [Moles/Vol] Sodium [Moles/volume ] in Serum or Plasma Low 136-145 [facility] Troponin I High Sensitivityo n 07-16-2024 Troponin I High Sensitivity 29.4 pg/mL High 0.0-20.0 [facility] Comment on above: Result Comment: PERF ORMED BY: [facility] [address] [place] [id number] PATHOLOGIST QUEEN'S COUNSEL ANDRE PERALTA M.D. Performed By: #### G LULS #### Point of Care testing , Troponin I High Sensitivity 32.1 pg/mL High 0.0-20.0 [facility] Comment on above: Result Comment: PERF ORMED BY: [facility] [address] [place] [address] PATHOLOGIST QUEEN'S COUNSEL ANDRE PERALTA M.D. Performed By: #### P T, BMP, BNP, HS TROP, CK, CBC ####[facility] [id number] [place] [address] [facility] Troponin I.cardiac [Mass/vol ume] in Serum or Plasma by Detection limit <= 0.01 ng/Ordered By: Bertin Yepez on 07-16-2024 Troponin I.cardiac DL <= 0.01 ng/mL [Mass/Vol] Troponin I.cardiac [Mass/volume] in Serum or Plasma by Detection limit <= 0.01 ng/ High 0.0-20.0 [facility] Urea nitrogen [Mass/volume] in Serum or PlasmaOrdered By: GLORIA DICKERSON on 07-16-2024 Urea nitrogen [Mass/Vol] Urea nitrogen [Mass/volume] in Serum or Plasma 7-25 [facility] WBC Auto (Bld) [#/Vol]Ordere d By: PROVIDER JAYLA on 07-16-2024 WBC (Bld) [#/Vol] Leukocytes [#/volume ] in Blood by Automated count 4.1-10.5 [facility] X-ray reportOrdered By: Fidencio Valentin on 07-16-2024 Study report [place] [address] XRay Report Signed Patient: Manolo Vickers MR#: [id number] : 1935 Acct:[id number] Age/Sex: 89 / M ADM Date: 5 Loc: ER Room: Type: PRE ER Attending Dr: Copies to: GLORIA DICKERSON~ Ordering Provider: GLORIA DICKERSON Date of Service: 07/16/24 XR/XR chest 2V*: Chest Pain XR chest 2V* 07/16/2024 11:44 AM SIGNS AND SYMPTOMS: Left-sided chest pain PROTOCOL: Frontal and lateral radiographs of the chest COMPARISON: 05/25/2024 FINDINGS: The trachea is midline. There is a dual lead pacer device on the left. The heart and mediastinal structures are within normal limits. Chronic interstitialchanges are redemonstrated. The lung parenchyma is clear, otherwise. The bony thorax is intact. Degenerative changes are noted in the thoracic spine and shoulders. XR/XR chest 2V* IMPRESSION: No acute cardiopulmonary pathology. Chronic findings are redemonstrated as above. Impression dictated by: Fidencio Valentin M.D.07/16/2024 1:03 PM Dictation Location: [place] [address] Transcribed By: [facility] 07/16/24 1303 Dictated By: Fidencio Valentin II, MD 07/16/24 1302 Signed By: 07/16/24 1303 [facility] Work Phone: XR chest 2V*on 07-16-2024 XR chest 2V* [facility] [address] [address] XRay Report Signed Patient: Manolo Vickers MR#: [id number] : 1935 Acct:[id number] Age/Sex: 89 / M ADM Date: 07/16/24 Loc: ER Room: Type: PRE ER Attending Dr: Copies to: GLORIA DICKERSON Ordering Provider: GLORIA DICKERSON Date of Service: 07/16/24 XR/XR chest 2V*: Chest Pain XR chest 2V* 07/16/2024 11:44 AM SIGNS AND SYMPTOMS: Left-sided chest pain PROTOCOL: Frontal and lateral radiographs of the chest COMPARISON: 05/25/2024 FINDINGS: The trachea is midline. There is a dual lead pacer device on the left. The heart and mediastinal structures are within normal limits. Chronic interstitial changes are redemonstrated. The lung parenchyma is clear, otherwise. The bony thorax is intact. Degenerative changes are noted in the thoracic spine and shoulders. XR/XR chest 2V* IMPRESSION: No acute cardiopulmonary pathology. Chronic findings are redemonstrated as above. Impression dictated by: Fidencio Valentin M.D.07/16/2024 1:03 PM Dictation Location: [facility]--17 Transcribed By: ERIBERTO 07/16/24 1303 Dictated By: Fidencio Valentin II, MD 07/16/24 1302 Signed By: 07/16/24 1303 Normal [facility] Issa 07-13-2024 JEVON Telephone ([facility]) ----- MANOLO VICKERS ([id number]) 1935 M Date Time Provider Department 07/13/24 GAYE MATA During your visit today, we recorded the following information about you: Gaye Mata, RN 07/13/2024 4:11 PM Signed Called and spoke with patient and to schedule Omnipod DASH to Omnipod 5 pump upgrade. Patient states he has the new pods and is wearing the Dexcom G6 CGM. Patient was scheduled for carb counting/insulin pump training for 07/25/24 at 1-3 pm at [facility]. Location. Patient's Mychart status is PENDING, invite resent via text and to create account. Email sent to [email or web address] with clinic address, time, date, and what to bring day of training. Carolina Juan 07/21/2024 9:07 AM Signed Patient's is calling in asking what the patient needs to bring in for appointment on Wednesday. Patient's states that they did not receive the email that was sent. Please call patient and and advise. Allergies As of Date: 07/13/2024 (No Known Allergies) Date Reviewed: 07/06/2024 Reviewed by: Ayana Zavala APRN.TUBE BENDER HAND - Fully Assessed Reason for Visit: Omnipod DASH to 5 pump upgrade [Other] Prescriptions as of 07/21/2024 - insulin aspart U-100 (NOVOLOG U-100 INSULIN ASPART) 100 unit/mL ADMINISTER PER PUMP (MAX DAILY 60 UNITS) - tamsulosin (FLOMAX) 0.4 mg Take 0.4 mg by mouth. - Omeprazole Magnesium 20 mg tablet Take 20 mg by mouth. - metoprolol succinate ER (TOPROL XL) 50 mg 24 hr tablet Take 1 tablet by mouth every 12 hours. - PARoxetine (PAXIL) 40 mg tablet Take 40 mg by mouth every morning. - lisinopril 2.5 mg tablet Take 2.5 mg by mouth. - glucagon (GVOKE HYPOPEN 2-PACK) 1 mg/0.2 mL auto-injector Inject 1 mg subcutaneously as needed. - insulin glargine (LANTUS) 100 unit/mL injection In case of pump failure - insulin pump cart,auto,BT,G6/7 (OMNIPOD 5 G6-G7 PODS, GEN 5,) crtg Change every 72 hours. - bvskpq-gazpyieq-bsbuvcj (CREON) 24,000-76,000 -120,000 unit cpDR Take 2 capsules by mouth three times daily with meals. and 1 with snacks (8/day) - folic acid/multivit-min/lutein (CENTRUM SILVER ORAL) Take by mouth once daily. - aspirin, enteric coated (ASPIRIN, ENTERIC COATED) 81 mg EC tablet Take 81 mg by mouth once daily. - cholecalciferol (VITAMIN D-3) 2,000 unit tablet Take 2,000 Units by mouth once daily. - cetirizine (ZYRTEC) 10 mg tablet Take 10 mg by mouth once daily. - Lactobac no.41/Bifidobact no.7 (PROBIOTIC-10 ORAL) Take by mouth once daily. - lutein-zeaxanthin 25-5 mg cap Take by mouth once daily. Problem List As Of Date 07/13/2024 Noted Resolved IPMN (intraductal papillary mucinous neoplasm) *06/23/2018 Encounter Status:Closed by [facility] MANOLO [facility]ICKERS ([id number]) 1935 M Date Time Provider Department 07/13/24 GAYE MATASarah During your visit today, we recorded the following information about you: Gaye Mata RN 07/13/2024 4:14 PM Signed In error Allergies As of Date: 07/13/2024 (No Known Allergies) Date Reviewed: 07/06/2024 Reviewed by: Ayana Zavala APRN.TUBE BENDER HAND - Fully Assessed Prescriptions as of 07/13/2024 - insulin aspart U-100 (NOVOLOG U-100 INSULIN ASPART) 100 unit/mL ADMINISTER PER PUMP (MAX DAILY 60 UNITS) - tamsulosin (FLOMAX) 0.4 mg Take 0.4 mg by mouth. - Omeprazole Magnesium 20 mg tablet Take 20 mg by mouth. - metoprolol succinate ER (TOPROL XL) 50 mg 24 hr tablet Take 1 tablet by mouth every 12 hours. - PARoxetine (PAXIL) 40 mg tablet Take 40 mg by mouth every morning. - lisinopril 2.5 mg tablet Take 2.5 mg by mouth. - glucagon (GVOKE HYPOPEN 2-PACK) 1 mg/0.2 mL auto-injector Inject 1 mg subcutaneously as needed. - insulin glargine (LANTUS) 100 unit/mL injection In case of pump failure - insulin pump cart,auto,BT,G6/7 (OMNIPOD 5 G6-G7 PODS, GEN 5,) crtg Change every 72 hours. - jujbjv-bzjrrndp-vcrrtpb (CREON) 24,000-76,000 -120,000 unit cpDR Take 2 capsules by mouth three times daily with meals. and 1 with snacks (8/day) - folic acid/multivit-min/lutein (CENTRUM SILVER ORAL) Take by mouth once daily. - aspirin, enteric coated (ASPIRIN, ENTERIC COATED) 81 mg EC tablet Take 81 mg by mouth once daily. - cholecalciferol (VITAMIN D-3) 2,000 unit tablet Take 2,000 Units by mouth once daily. - cetirizine (ZYRTEC) 10 mg tablet Take 10 mg by mouth once daily. - Lactobac no.41/Bifidobact no.7 (PROBIOTIC-10 ORAL) Take by mouth once daily. - lutein-zeaxanthin 25-5 mg cap Take by mouth once daily. Problem List As Of Date 07/13/2024 Noted Resolved IPMN (intraductal papillary mucinous neoplasm) *06/23/2018 Encounter Status:Closed by GAYE MATA on 07/13/24 [facility] CNOVon 07-06-2024 CNOV Office Visit ([facility] ) ----- MANOLO VICKERS ([id number]) 1935 M Date Time Provider Department 07/06/24 11:00 AM AYANA ZAVALA During your visit today, we recorded the following information about you: Pulse Blood pressure Weight 60/minute 114/69 68.3 kg Ayana Zavala APRN.CNP 07/06/2024 12:36 PM Signed Endocrinology Initial Diabetes Assessment Manolo Vickers is here for a consultation regarding: DM Type 2 My final recommendations will be communicated back to the requesting physician by way of shared Medical record or letter to requesting physician via US mail. PCP is DO Marie Rodriguez ([facility]) [address] [place] [address] History of Present Illness Manolo Vickers is a 89 year old male presents today for evaluation of DM Type 1. Here with and son. 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 No history of diabetes prior to this. Previous patient of Dr. Gómez. He is currently on Omnipod DASH and Dexcom G7. He reports taking Lantus 12 units daily at bedtime in addition to his pump and has been doing this for awhile. He takes manual boluses for breakfast, lunch and dinner (10-8-7 units). He does not know how to carb count. He has significant fluctuations in his blood sugar, with frequent hypoglycemia typically overnight. He is eating more frequently to keep his glucose up and then having elevations later in the day. EMS has been called several times due to his low glucose. He does not have warning symptoms of his low blood sugars. Family reports they can usually have him correct with juice or honey but he is sometimes confused during low blood sugar episodes. They do not have glucagon at home. Glucose during visit reading 72 on Dexcom. Apple juice was provided to patient. He is a current smoker. Reports he may have a glass of wine with dinner every few days. Date of Diagnosis: 2019 Last HbA1c: Hemoglobin A1C (POCT) (%) Date Value 07/06/2024 10.1 Family history of diabetes includes none. Complications Microvascular: none Macrovascular: CAD s/p PCI Comorbidities: HTN, COPD, CAD, ICM, BPH, IPMN, pancreatitis Diabetic Foot and Retinal Eye Exam not Overdue Prior DM Medications: Jardiance- stopped by cardiology Current DM Related Medications: Current Medications 07/06/2024 DIABETES THERAPIES Medication Dosage Pharm Subclass insulin aspart U-100 (NOVOLOG U-100 INSULIN ASPART) 100 unit/mL ADMINISTER PER PUMP (MAX DAILY 60 UNITS) Insulin Analogs - Rapid Acting insulin glargine (LANTUS) 100 unit/mL injection In case of pump failure Insulin Analogs - Long Acting CARDIOVASCULAR Medication Dosage Pharm Subclass lisinopril 2.5 mg tablet Take 2.5 mg by mouth. MIS Inhibitors metoprolol succinate ER (TOPROL XL) 50 mg 24 hr tablet Take 1 tablet by mouth every 12 hours. Beta Blockers Cardiac Selective ANTI-PLATELET THERAPIES Medication Dosage Pharm Subclass aspirin, enteric coated (ASPIRIN, ENTERIC COATED) 81 mg EC tablet Take 81 mg by mouth once daily. Salicylate Analgesics ASPIRIN Medication Dosage Pharm Subclass aspirin, enteric coated (ASPIRIN, ENTERIC COATED) 81 mg EC tablet Take 81 mg by mouth once daily. Salicylate Analgesics OTHER Medication Dosage Pharm Subclass cetirizine (ZYRTEC) 10 mg tablet Take 10 mg by mouth once daily. Antihistamines - 2nd Generation cholecalciferol (VITAMIN D-3) 2,000 unit tablet Take 2,000 Units by mouth once daily. Vitamins - D Derivatives folic acid/multivit-min/lutein (CENTRUM SILVER ORAL) Take by mouth once daily. Multivitamin and Mineral Combinations glucagon (GVOKE HYPOPEN 2-PACK) 1 mg/0.2 mL auto-injector Inject 1 mg subcutaneously as needed. Agents to treat Hypoglycemia (Hyperglycemics) Lactobac no.41/Bifidobact no.7 (PROBIOTIC-10 ORAL) Take by mouth once daily. qlppky-zpcyhamh-povgaqy (CREON) 24,000-76,000 -120,000 unit cpDR Take 2 capsules by mouth three times daily with meals. and 1 with snacks (8/day) Digestive Enzyme Mixtures lutein-zeaxanthin 25-5 mg cap Take by mouth once daily. Alternative Therapy - Antioxidant Omeprazole Magnesium 20 mg tablet Take 20 mg by mouth. Gastric Acid Secretion Chief Deputy Sheriff - Proton Pump Inhibitors (PPIs) PARoxetine (PAXIL) 40 mg tablet Take 40 mg by mouth every morning. Antidepressant - Selective Serotonin Reuptake Inhibitors (SSRIs) tamsulosin (FLOMAX) 0.4 mg Take 0.4 mg by mouth. Prostatic Hypertrophy Agent - urxrh-1-Liekxsfotpjy Antagonists Physical Activity: No formal program Diet: CHO Controlled Diet SMBG Frequency of Monitoring: Four times a Day Summary of Personal CGM Findings: Dates worn: 06/22/24-07/05/24 CGM Type: Dexcom 1- CGM recording is adequate for interpretation. Worn 93% of (more content not included)... [facility] ([facility] ----- MANOLO VICKERS ([id number]) 1935 M Date Time Provider Department 07/06/24 AYANA ZAVALA [facility] During your visit today, we recorded the following information about you: Ayana Zavala APRN.TUBE BENDER HAND 07/06/2024 4:09 PM Signed Please update patient that I called pharmacy and the glucagon pen is covered fully under their insurance, [facility] and should be in by later in the day tomorrow per pharmacist. I spoke with [employer]imum Interactive USAhang mary and she said since this just an upgrade she doesn't need to reach out to the patient and we can have them scheduled with one of our educators for training. I reached out to our receiving lead and am waiting to hear back, but hopefully can get him set up for training in the next two weeks. Sheryl Ny MA 07/07/2024 4:31 PM Signed Called patient. No answer. [facility] to call [phone] to retrieve below message from Ayana Mckinney APRN.TUBE BENDER HAND 07/13/2024 8:33 AM Signed Please call back patient to see how he is doing since we made adjustments to his regimen. I did reach out to the [employer] water trainer at [place] and she said she would be reaching out. I want to make sure this gets scheduled and that she was able to reach him. Buffy Arana MA 07/13/2024 4:06 PM Signed Called and spoke with patient He is doing well He stated that he just got scheduled with the water trainer today will call the office if he needs anything Ayana Zavala APRN.CNP 07/13/2024 4:14 PM Signed Noted, thank you! Allergies As of Date: 07/06/2024 (No Known Allergies) Date Reviewed: 07/06/2024 Reviewed by: Ayana Zavala APRN.TUBE BENDER HAND - Fully Assessed Prescriptions as of 07/13/2024 - insulin aspart U-100 (NOVOLOG U-100 INSULIN ASPART) 100 unit/mL ADMINISTER PER PUMP (MAX DAILY 60 UNITS) - tamsulosin (FLOMAX) 0.4 mg Take 0.4 mg by mouth. - Omeprazole Magnesium 20 mg tablet Take 20 mg by mouth. - metoprolol succinate ER (TOPROL XL) 50 mg 24 hr tablet Take 1 tablet by mouth every 12 hours. - PARoxetine (PAXIL) 40 mg tablet Take 40 mg by mouth every morning. - lisinopril 2.5 mg tablet Take 2.5 mg by mouth. - glucagon (GVOKE HYPOPEN 2-PACK) 1 mg/0.2 mL auto-injector Inject 1 mg subcutaneously as needed. - insulin glargine (LANTUS) 100 unit/mL injection In case of pump failure - insulin pump cart,auto,BT,G6/7 (OMNIPOD 5 G6-G7 PODS, GEN 5,) crtg Change every 72 hours. - otapda-mppxdgwr-pzmfgsx (CREON) 24,000-76,000 -120,000 unit cpDR Take 2 capsules by mouth three times daily with meals. and 1 with snacks (8/day) - folic acid/multivit-min/lutein (CENTRUM SILVER ORAL) Take by mouth once daily. - aspirin, enteric coated (ASPIRIN, ENTERIC COATED) 81 mg EC tablet Take 81 mg by mouth once daily. - cholecalciferol (VITAMIN D-3) 2,000 unit tablet Take 2,000 Units by mouth once daily. - cetirizine (ZYRTEC) 10 mg tablet Take 10 mg by mouth once daily. - Lactobac no.41/Bifidobact no.7 (PROBIOTIC-10 ORAL) Take by mouth once daily. - lutein-zeaxanthin 25-5 mg cap Take by mouth once daily. 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 [facility] GLUCOSE, BLOOD (POC)on 07-06 Glucose [Mass/Vol] 76 mg/dL 74 - 99 mg/dL [facility] Comment on above: Location:[facility], [address] [place] [address] The Accu-Chek Inform II glucose meter has not been approved for testing on patients receiving intensive medical intervention or therapy and results from this point of care glucose test should not be used for patient management decisions in these cases. Inaccurate results may also occur from other interfering factors, such as N-acetylcysteine (blood concentrations of greater than 5mg/dL), galactose, extremes of hematocrit (<10 or >65), or high doses of ascorbic acid (vitamin C) greater than 3mg/dL. Consider alternate testing mechanisms (e.g. core lab, blood gas instrument) in the above situations. [facility] HEMOGLOBIN A1C (POC)on 07-06 HbA1c (Bld) [Mass fraction] 10.1 % Abnormal 4.3 - 5.6 % [facility] Comment on above: Location:[facility], [address] [place] [address] Point of care (POC) Hemoglobin A1c (HGBA1C) [...] specific diabetes management situations: The POC device healthcare applications analyst provides a normal range of 4.2% to 6.5% for the HGBA1C POC test. However, the [place] [employer] guidelines indicate that patients with [...] anemia) that alter red blood cell lifespan. Interpretation and review of laboratory results Abnormal [facility] Glucose Glucometer (BldC) [M ass/Vol]Ordered By: Sushant Cordon on 06-21-2024 Glucose [Mass/Vol] Capillary blood gluc ose measurement by glucometer (mass/volume) Critically high [facility] Comment on above: Random Glucose Refer ence Range is dependent on time and content of last meal. Glucose of more than 200 mg/dL in a nonstressed, ambulatory subject supports the diagnosis of Diabetes Mellitus. Glucose Poct Glucometerson 1 08-22-2023 Commemt1 Normal [facility] Comment on above: Result Comment: Glu2 : Will Repeat Test Performed By: #### G LULS #### Point of Care testing , Commemt2 WILL NOTIFY DR/KARIN Normal [facility] Comment on above: Performed By: #### G LULS #### Point of Care testing , Commemt3 Cleaned Meter Normal [facility] Comment on above: Result Comment: PERF ORMED BY: [facility] [address] [place] [address] PATHOLOGIST QUEEN'S COUNSEL ANDRE PERALTA M.D. Performed By: #### G LULS #### Point of Care testing , Glucose [Mass/Vol] 572 mg/dL Off scale high e [facility] Comment on above: Result Comment: Gray Glucose Reference Range is dependent on time and content of last meal. Glucose of more than 200 mg/dL in a nonstressed, ambulatory subject supports the diagnosis of Diabetes Mellitus. Performed By: #### G LULS #### Point of Care testing , Commemt1 Normal [facility] Comment on above: Result Comment: Glu2 : Will Repeat Test Performed By: #### G LULS #### Point of Care testing , Commemt2 WILL NOTIFY DR/RN Normal [facility] Comment on above: Performed By: #### G LULS #### Point of Care testing , Commemt3 Cleaned Meter Normal [facility] Comment on above: Result Comment: PERF ORMED BY: [address] [place] [id number] PATHOLOGIST QUEEN'S COUNSEL ANDRE PERALTA M.D. Performed By: #### G LULS #### Point of Care testing , Glucose [Mass/Vol] 552 mg/dL Off scale high Th e [facility] Comment on above: Result Comment: Gray om Glucose Reference Range is dependent on time and content of last meal. Glucose of more than 200 mg/dL in a nonstressed, ambulatory subject supports the diagnosis of Diabetes Mellitus. Performed By: #### G LULS #### Point of Care testing , Glucose [Mass/Vol] 375 mg/dL Normal [facility] Comment on above: Result Comment: Gray om Glucose Reference Range is dependent on time and content of last meal. Glucose of more than 200 mg/dL in a nonstressed, ambulatory subject supports the diagnosis of Diabetes Mellitus. PERFORMED BY: [address] [place] [address] PATHOLOGIST QUEEN'S COUNSEL ANDRE PERALTA M.D. Performed By: #### G LULS #### Point of Care testing , Commemt1 Normal [facility] Comment on above: Result Comment: Glu2 : Will Repeat Test PERFORMED BY: [address] [place] [id number] PATHOLOGIST QUEEN'S COUNSEL ANDRE PERALTA M.D. Performed By: #### G LULS #### Point of Care testing , Glucose [Mass/Vol] 437 mg/dL Off scale high Th e [facility] Comment on above: Result Comment: Gray om Glucose Reference Range is dependent on time and content of last meal. Glucose of more than 200 mg/dL in a nonstressed, ambulatory subject supports the diagnosis of Diabetes Mellitus. Performed By: #### G LULS #### Point of Care testing , Glucose [Mass/Vol] 210 mg/dL Normal [facility] Comment on above: Result Comment: [facility] Glucose Reference Range is dependent on time and content of last meal. Glucose of more than 200 mg/dL in a nonstressed, ambulatory subject supports the diagnosis of Diabetes Mellitus. PERFORMED BY: [facility] [address] [place] [address] PATHOLOGIST QUEEN'S COUNSEL ANDRE PERALTA M.D. Performed By: #### G LULS #### Point of Care testing , Glucose [Mass/Vol] 332 mg/dL Normal [facility] Comment on above: Result Comment: [facility] Glucose Reference Range is dependent on time and content of last meal. Glucose of more than 200 mg/dL in a nonstressed, ambulatory subject supports the diagnosis of Diabetes Mellitus. PERFORMED BY: [facility] [address] [place] [address] PATHOLOGIST QUEEN'S COUNSEL ANDRE PERALTA M.D. Performed By: #### G LULS #### Point of Care testing , No Panel InformationOrdered By: Sushant Cordon on 06-21-2024 Bedside Glucose #[address]/rn [facility] Bedside Glucose #3 Comment Cleaned meter [facility] Bedside Glucose Comment See comment [facility] Comment on above: Glu2: Will Repeat Te st Aerobic Cultureon 06-20-2024 Aerobic Culture Comment deep wound culture of abdominal wound ORGANISM: Strep agalactiae - (group b) (O:STRAGA) Quantity of Growth Moderate Growth ORGANISM: Staphylococcus aureus (O:STAAUR) Quantity of Growth Light Growth Comment deep wound culture of abdominal wound No Anaerobes Isolated 3 Days Comment deep wound culture of abdominal wound Gram Stain Result 3+ White Blood Cells 1+ Gram Positive Cocci Aerobic DORON Charge (PCMIC38) SUSCEPTIBILITY ORGANISM: O:STAAUR ANTIBIOTIC INTERPRETATION DORON Azithromycin S <2 Ceftaroline S <0.5 Ciprofloxacin S <1 Clindamycin S 0.5 Daptomycin S 1 Levofloxacin S <1 Linezolid S 4 Oxacillin S 0.5 Penicillin MARIANNE >2 Tetracycline S <4 Trimethoprim/Sulfamethoxa zole S <0.5 Vancomycin S 2 S = SUSCEPTIBLE I = INTERMEDIATE R = RESISTANT BLANK = DATA NOT AVAILABLE, OR DRUG NOT ADVISABLE OR TESTED R* = RESISTANCE DUE TO EXTENDED SPECTRUM BETA-LACTAMASES ESBL = EXTENDED SPECTRUM BETA-LACTAMASE TFG = THYMIDINE-DEPENDENT STRAIN MARIANNE = BETA-LACTAMASE POSITIVE IB = INDUCIBLE BETA-LACTAMASE. APPEARS IN PLACE OF 'S' WITH SPECIES KNOWN TO POSSESS INDUCIBLE BETA-LACTAMASES. POTENTIALLY THEY MAY BECOME RESISTANT TO ALL B-LACTAM DRUGS. PERFORMED BY: [facility] [address] [place] [address] PATHOLOGIST [employer] ANDRE PERALTA M.D. Normal [facility] Comment on above: Performed By: #### G LULS #### Point of Care testing , Anaerobic cultureOrdered By: Stephanie Sheridan on 06-20-2024 Bacteria identified Anaer cx Nom (Unsp spec) Anaerobic culture [facility] Bacteria identified Aer cx N om (Unsp spec)Ordered By: Stephanie Sheridan on 06-20-2024 Aerobic Culture Abnormal [facility] B Strep (Streptococcus agalactiae) Group B Strep (Streptococcus agalactiae) Abnormal [facility] Glucose Poct Glucometerson 1 08-21-2023 Glucose [Mass/Vol] 134 mg/dL Normal [facility] Comment on above: Result Comment: Gray Glucose Reference Range is dependent on time and content of last meal. Glucose of more than 200 mg/dL in a nonstressed, ambulatory subject supports the diagnosis of Diabetes Mellitus. PERFORMED BY: [facility] [address] [address] PATHOLOGIST [employer] ANDRE PERALTA M.D. Performed By: #### G LULS #### Point of Care testing , Glucose [Mass/Vol] 65 mg/dL Normal [facility] Comment on above: Result Comment: [facility] Glucose Reference Range is dependent on time and content of last meal. Glucose of more than 200 mg/dL in a nonstressed, ambulatory subject supports the diagnosis of Diabetes Mellitus. PERFORMED BY: [address] [place] [address] PATHOLOGIST [employer] ANDRE PERALTA M.D. Performed By: #### G LULS #### Point of Care testing , Commemt1 Glu2: Cleaned Meter Normal [facility] Comment on above: Result Comment: PERF ORMED BY: [address] [place] [address] PATHOLOGIST [employer] ANDRE PERALTA M.D. Performed By: #### G LULS ####Point of Care testing, Glucose [Mass/Vol] 140 mg/dL Normal [facility] Comment on above: Result Comment: Gray om Glucose Reference Range is dependent on time and content of last meal. Glucose of more than 200 mg/dL in a nonstressed, ambulatory subject supports the diagnosis of Diabetes Mellitus. Performed By: #### G LULS ####Point of Care testing, Commemt1 Glu2: Cleaned Meter Normal [facility] Comment on above: Result Comment: PERF ORMED BY: [address] [place] [address] PATHOLOGIST [employer] ANDRE PERALTA M.D. Performed By: #### G LULS ####Point of Care testing, Glucose [Mass/Vol] 200 mg/dL Normal [facility] Comment on above: Result Comment: Gray om Glucose Reference Range is dependent on time and content of last meal. Glucose of more than 200 mg/dL in a nonstressed, ambulatory subject supports the diagnosis of Diabetes Mellitus. Performed By: #### G LULS ####Point of Care testing, Commemt1 Normal [facility] Comment on above: Result Comment: Glu2 : Will Repeat Test PERFORMED BY: [address] [place] [id number] PATHOLOGIST [employer] ANDRE PERALTA M.D. Performed By: #### G LULS #### Point of Care testing , Glucose [Mass/Vol] 425 mg/dL Off scale high [facility] Comment on above: Result Comment: Gray Glucose Reference Range is dependent on time and content of last meal. Glucose of more than 200 mg/dL in a nonstressed, ambulatory subject supports the diagnosis of Diabetes Mellitus. Performed By: #### G LULS #### Point of Care testing , Gram stain microscopyOrdered By: Stephanie Sheridan on 06-20-2024 Microscopic observation Gram stain Nom (Unsp spec) Gram stain microscopy [facility] A1C with Estimated Average G kirill 06-19-2024 Glucose [Mass/Vol] 255 mg/dL Normal [facility] Comment on above: Order Comment: ADD O N PER IFEANYI - PHLEB Result Comment: PERF ORMED BY: [facility] [address] [place] [address] PATHOLOGIST [employer] ANDRE PERALTA M.D. Performed By: #### G LULS #### Point of Care testing , HbA1c (Bld) [Mass fraction] 10.5 % High 4.3-5.6 [facility] Comment on above: Order Comment: ADD O N PER IFEANYI - PHLEB Result Comment: Incr eased risk for diabetes: 5.7 - 6.4 diabetes: >6.4 glycemic control for adults with diabetes: <7.0 Performed By: #### G LULS #### Point of Care testing , Acanthocytes [Presence] in B lood by Light microscopyOrdered By: Sushant Cordon on 06-19-2024 Acanthocytes LM Ql (Bld) Acanthocytes [Presence] in Blood by Light microscopy [facility] Anisocytosis LM Ql (Bld)Orde red By: Sushant Cordon on 06-19-2024 Anisocytosis Ql (Bld) Anisocytosis [Pres ence] in Blood by Light microscopy [facility] Basic Metabolic Panelon Anion gap [Moles/Vol] 10.4 mmol/L Normal 6.0-15.0 [facility] Comment on above: Performed By: #### G LULS #### Point of Care testing , Calcium [Mass/Vol] 9.0 mg/dL Normal 8.6-10.3 [facility] Comment on above: Result Comment: PERF ORMED BY: [facility] [place] [address] PATHOLOGIST [employer] ANDRE PERALTA M.D. Performed By: #### G LULS #### Point of Care testing , Chloride [Moles/Vol] 103 mmol/L Normal 98-107 [facility] Comment on above: Performed By: #### G LULS #### Point of Care testing , CO2 [Moles/Vol] 28.0 mmol/L Normal 21.0-31.0 [facility] Comment on above: Performed By: #### G LULS #### Point of Care testing , Creatinine [Mass/Vol] 0.96 mg/dL Normal 0.70-1.30 [facility] Comment on above: Performed By: #### G LULS #### Point of Care testing , GFR/1.73 sq M.predicted MDRD (S/P/Bld) [Vol rate/Area] mL/min/{1.73_m2} Normal [facility] Comment on above: Performed By: #### G LULS #### Point of Care testing , Glucose [Mass/Vol] 90 mg/dL Normal 70-100 [facility] Comment on above: Result Comment: Gray Glucose Reference Range is dependent on time and content of last meal. Glucose of more than 200 mg/dL in a nonstressed, ambulatory subject supports the diagnosis of Diabetes Mellitus. ADA recommended reference range Performed By: #### G LULS #### Point of Care testing , Potassium [Moles/Vol] 4.4 mmol/L Normal 3.5-5.1 [facility] Comment on above: Performed By: #### G LULS #### Point of Care testing , Sodium [Moles/Vol] 137 mmol/L Normal 136-145 [facility] Comment on above: Performed By: #### G LULS #### Point of Care testing , Urea nitrogen [Mass/Vol] 22 mg/dL Normal 7-25 [facility] Comment on above: Performed By: #### G LULS #### Point of Care testing , Basophils Auto (Bld) [#/Vol] Ordered By: Sushant Cordon on 06-19-2024 Basophils (Bld) [#/Vol] Automated basophil count 0.0-0.2 [facility] Basophils/100 WBC Auto (Bld) Ordered By: Sushant Cordon on 06-19-2024 Basophils/100 WBC (Bld) Automated basophil % . [facility] Blood estimated average gluc ose determination by estimation from glycated hemoglobinOrdered By: Sushant Cordon on 06-19-2024 Average glucose Estimated from glycated hemoglobin (Bld) [Mass/Vol] Glucose mean value [Mass/volume] in Blood Estimated from glycated hemoglobin [facility] Mcdermitt cells [Presence] in Blo od by Light microscopyOrdered By: Sushant Cordon on 06-19-2024 Geo cells LM Ql (Bld) Geo cells [Prese nce] in Blood by Light microscopy [facility] Calcium [Mass/volume] in Ser um or PlasmaOrdered By: Sushant Cordon on 06-19-2024 Calcium [Mass/Vol] Calcium [Mass/volume ] in Serum or Plasma 8.6-10.3 [facility] Carbon dioxide, total [Moles /volume] in Serum or PlasmaOrdered By: Sushant Cordon on 06-19-2024 CO2 [Moles/Vol] Carbon dioxide, tota l [Moles/volume] in Serum or Plasma 21.0-31.0 [facility] Chloride [Moles/volume] in S jihan or PlasmaOrdered By: Sushant Cordon on 06-19-2024 Chloride [Moles/Vol] Chloride [Moles/vol ume] in Serum or Plasma 98-107 [facility] Creatinine [Mass/volume] in Serum or PlasmaOrdered By: Sushant Cordon on 06-19-2024 Creatinine [Mass/Vol] Creatinine [Mass/v olume] in Serum or Plasma 0.70-1.30 [facility] Eosinophils Auto (Bld) [#/Vo l]Ordered By: Sushant Cordon on 06-19-2024 Eosinophils (Bld) [#/Vol] Automated eosinophil count 0.0-0.45 [facility] Eosinophils/100 WBC Auto (Bl d)Ordered By: Sushant Cordon on 06-19-2024 Eosinophils/100 WBC (Bld) Automated eosinophil % . [facility] Erythrocyte distribution wid th Auto (RBC) [Ratio]Ordered By: Sushant Cordon on 06-19-2024 Erythrocyte distribution width (RBC) [Ratio] Erythrocyte distribution width [Ratio] by Automated count High 12.0-14.8 [facility] Erythrocyte morphology findi ng [Identifier] in BloodOrdered By: Sushant Cordon on 06-19-2024 RBC morphology finding Nom (Bld) RBC morphology [facility] Glucose Poct Glucometerson 1 08-20-2023 Glucose [Mass/Vol] 101 mg/dL Normal [facility] Comment on above: Result Comment: Gray Glucose Reference Range is dependent on time and content of last meal. Glucose of more than 200 mg/dL in a nonstressed, ambulatory subject supports the diagnosis of Diabetes Mellitus. PERFORMED BY: [facility] [address] [place] [address] PATHOLOGIST [employer] ANDRE PERALTA M.D. Performed By: #### G RIOS #### Point of Care testing , Glucose [Mass/volume] in Ser um or PlasmaOrdered By: Sushant Cordon on 06-19-2024 Glucose [Mass/Vol] Glucose [Mass/volume ] in Serum or Plasma 70-100 [facility] Comment on above: ADA recommended refe rence rangeRandom Glucose Reference Range is dependent on time and content of last meal. Glucose of more than 200 mg/dL in a nonstressed, ambulatory subject supports the diagnosis of Diabetes Mellitus. Hematocrit Auto (Bld) [Volum e fraction]Ordered By: Sushant Cordon on 06-19-2024 Hematocrit (Bld) [Volume fraction] Hematocrit [Volume Fraction] of Blood by Automated count Low 38.8-50.0 [facility] Hemoglobin A1c/Hemoglobin.to chrissy in BloodOrdered By: Sushant Cordon on 06-19-2024 HbA1c (Bld) [Mass fraction] Hemoglobin A1c percentage High 4.3-5.6 [facility] Comment on above: Increased risk for d iabetes: 5.7 - 6.4diabetes: >6.4glycemic control for adults with diabetes: <7.0 Hemoglobin [Mass/volume] in BloodOrdered By: Sushant Cordon on 06-19-2024 Hemoglobin (Bld) [Mass/Vol] Hemoglobin [Mass/volume] in Blood Low 13.0-17.0 [facility] Hypochromia LM Ql (Bld)Order ed By: Sushant Cordon on 06-19-2024 Hypochromia Ql (Bld) Hypochromia [Presen ce] in Blood by Light microscopy [facility] INR in Platelet poor plasma by Coagulation assayOrdered By: Sushant Cordon on 06-19-2024 INR Coag (PPP) [Relative time] INR in Platelet poor plasma by Coagulation assay [facility] Comment on above: INR Therapeutic [...] with mechanical heart valves: 3 - 4.5 Leukocytes [#/volume] correc robert for nucleated erythrocytes in Blood by Automated counOrdered By: Sushant Cordon on 06-19-2024 WBC corrected for nucl RBC Auto (Bld) [#/Vol] Leukocytes [#/volume] corrected for nucleated erythrocytes in Blood by Automated coun 4.1-10.5 [facility] Lymphocytes Auto (Bld) [#/Vo l]Ordered By: Sushant Cordon on 06-19-2024 Lymphocytes (Bld) [#/Vol] Lymphocytes [#/volume] in Blood by Automated count 1.00-4.8 [facility] Lymphocytes/100 WBC Auto (Bl d)Ordered By: Sushant Cordon on 06-19-2024 Lymphocytes/100 WBC (Bld) Lymphocytes/100 leukocytes in Blood by Automated count . [facility] MCH Auto (RBC) [Entitic mass ]Ordered By: Sushant Cordon on 06-19-2024 MCH (RBC) [Entitic mass] MCH [Entitic mass] by Automated count Low 27.5-35.2 [facility] MCHC Auto (RBC) [Mass/Vol]Or dered By: Sushant Cordon on 06-19-2024 MCHC (RBC) [Mass/Vol] MCHC [Mass/volume] by Automated count 32.5-35.6 [facility] MCV Auto (RBC) [Entitic vol] Ordered By: Sushant Cordon on 06-19-2024 MCV (RBC) [Entitic vol] MCV [Entitic volume] by Automated count Low 83.5-101 [facility] Macrocytes LM Ql (Bld)Ordere d By: Sushant Cordon on 06-19-2024 Macrocytes Ql (Bld) Macrocytes [Presence ] in Blood by Light microscopy [facility] Microcytes LM Ql (Bld)Ordere d By: Sushant Cordon on 06-19-2024 Microcytes Ql (Bld) Microcytes [Presence ] in Blood by Light microscopy [facility] Monocytes Auto (Bld) [#/Vol] Ordered By: Sushant Cordon on 06-19-2024 Monocytes (Bld) [#/Vol] Automated blood monocyte count 0.0-0.8 [facility] Monocytes/100 WBC Auto (Bld) Ordered By: Sushant Cordon on 06-19-2024 Monocytes/100 WBC (Bld) Automated monocyte % . [facility] Neutrophils Auto (Bld) [#/Vo l]Ordered By: Sushant Cordon on 06-19-2024 Neutrophils (Bld) [#/Vol] Neutrophils [#/volume] in Blood by Automated count 1.8-7.7 [facility] Neutrophils/100 WBC Auto (Bl d)Ordered By: Sushant Cordon on 06-19-2024 Neutrophils/100 WBC (Bld) Automated neutrophil % . [facility] No Panel InformationOrdered By: Sushant Cordon on 06-19-2024 Estimated GFR (CKD-EPI) > 60.0 mL/Min [facility] Creatinine Clearance (Chem N/A [facility] Nucleated erythrocytes [Pres ence] in Blood by Automated countOrdered By: Sushant Cordon on 06-19-2024 Nucleated RBC Auto Ql (Bld) Nucleated erythrocytes [Presence] in Blood by Automated count 0-0.5 [facility] Ovalocytes [Presence] in Blo od by Light microscopyOrdered By: Sushant Cordon on 06-19-2024 Ovalocytes LM Ql (Bld) Ovalocyte detection [facility] Partial Thromboplastin Timeo n 06-19-2024 aPTT Coag (Bld) [Time] 29.4 s Normal 25.1-36.5 [facility] Comment on above: Result Comment: A he matocrit value greater than 55% may lead to inaccurate results in coagulation testing. Patients having hematocrit values >55% require a special collection tube for coagulation studies. Please contact the laboratory at [phone] for redraw instructions. PERFORMED BY: [facility] [address] [place] [address] PATHOLOGIST [employer] ANDRE PERALTA M.D. Performed By: #### G LUMARYA #### Point of Care testing , Platelet adequacy [Presence] in Blood by Light microscopyOrdered By: Sushant Cordon on 06-19-2024 Platelets LM Ql (Bld) Platelet adequacy [Presence] in Blood by Light microscopy Normal [facility] Platelet mean volume Auto (B ld) [Entitic vol]Ordered By: Sushant Cordon on 06-19-2024 Platelet mean volume (Bld) [Entitic vol] Platelet mean volume [Entitic volume] in Blood by Automated count 6.6-10.1 [facility] Platelet morphology finding [Identifier] in BloodOrdered By: Sushant Cordon on 06-19-2024 Platelet morphology finding Nom (Bld) Platelet morphology finding [Identifier] in Blood Normal [facility] Platelets Auto (Bld) [#/Vol] Ordered By: Sushant Cordon on 06-19-2024 Platelets (Bld) [#/Vol] Platelets [#/volume] in Blood by Automated count 150-450 [facility] Poikilocytosis [Presence] in Blood by Light microscopyOrdered By: Sushant Cordon on 06-19-2024 Poikilocytosis LM Ql (Bld) Poikilocytosis [Presence] in Blood by Light microscopy [facility] Potassium [Moles/volume] in Serum or PlasmaOrdered By: Sushant Cordon on 06-19-2024 Potassium [Moles/Vol] Potassium [Moles/v olume] in Serum or Plasma 3.5-5.1 [facility] Prothrombin Time INRon 06-19 INR Coag (PPP) [Relative time] 1.1 {INR} Normal [facility] Comment on above: Result [...] valves: 3 - 4.5 Performed By: #### G LULS #### Point of Care testing , PT Coag (PPP) [Time] 12.9 s Normal 9.0-12.9 [facility] Comment on above: Result Comment: A he matocrit value greater than 55% may lead to inaccurate results in coagulation testing. Patients having hematocrit values >55% require a special collection tube for coagulation studies. Please contact the laboratory at [phone] for redraw instructions. Performed By: #### G LULS #### Point of Care testing , Prothrombin time (PT)Ordered By: Sushant Cordon on 06-19-2024 PT Coag (PPP) [Time] Prothrombin time (PT) 9.0- 12.9 [facility] Comment on above: A hematocrit value g reater than 55% may lead to inaccurate results in coagulation testing. Patients having hematocrit values >55% require a special collection tube for coagulation studies. Please contact the laboratory at [phone] for redraw instructions. RBC Auto (Bld) [#/Vol]Ordere d By: Sushant Cordon on 06-19-2024 RBC (Bld) [#/Vol] Erythrocytes [#/volu me] in Blood by Automated count 3.90-5.60 [facility] Scan and CBCon 06-19-2024 Acanthocytes Moderate Normal [facility] Comment on above: Performed By: #### G LULS #### Point of Care testing , Anisocytosis Ql (Bld) Moderate Normal [facility] Comment on above: Performed By: #### G LULS #### Point of Care testing , Basophils (Bld) [#/Vol] 0.1 10*3/uL Normal 0.0-0.2 [facility] Comment on above: Result Comment: PERF ORMED BY: [facility] [address] [place] [address] PATHOLOGIST [employer] ANDRE PERALTA M.D. Performed By: #### G LULS #### Point of Care testing , Basophils/100 WBC (Bld) 1.8 % Normal . [facility] Comment on above: Performed By: #### G LULS #### Point of Care testing , Crenated RBC Slight Normal [facility] Comment on above: Performed By: #### G LULS #### Point of Care testing , Eosinophils (Bld) [#/Vol] 0.1 10*3/uL Normal 0.0-0.45 [facility] Comment on above: Performed By: #### G LULS #### Point of Care testing , Eosinophils/100 WBC (Bld) 1.3 % Normal . [facility] Comment on above: Performed By: #### G LULS #### Point of Care testing , Erythrocyte distribution width (RBC) [Ratio] 20.5 % High 12.0-14.8 [facility] Comment on above: Performed By: #### G LULS #### Point of Care testing , Hematocrit (Bld) [Volume fraction] 34.1 % Low 38.8-50.0 [facility] Comment on above: Performed By: #### G LULS #### Point of Care testing , Hemoglobin (Bld) [Mass/Vol] 11.3 g/dL Low 13.0-17.0 [facility] Comment on above: Performed By: #### G LULS #### Point of Care testing , Hypochromasia Moderate Normal [facility] Comment on above: Performed By: #### G LULS #### Point of Care testing , Lymphocytes (Bld) [#/Vol] 3.5 10*3/uL Normal 1.00-4.8 [facility] Comment on above: Performed By: #### G LULS #### Point of Care testing , Lymphocytes/100 WBC (Bld) 44.3 % Normal . [facility] Comment on above: Performed By: #### G LULS #### Point of Care testing , Macrocytosis Slight Normal [facility] Comment on above: Performed By: #### G LULS #### Point of Care testing , MCH (RBC) [Entitic mass] 25.5 pg Low 27.5-35.2 [facility] Comment on above: Performed By: #### G LULS #### Point of Care testing , MCV (RBC) [Entitic vol] 76.9 fL Low 83.5-101 [facility] Comment on above: Performed By: #### G LULS #### Point of Care testing , Mean Corpuscular HGB Conc 33.2 g/dL Normal 32.5-35.6 [facility] Comment on above: Performed By: #### G LULS #### Point of Care testing , Microcytosis Slight Normal [facility] Comment on above: Performed By: #### G LULS #### Point of Care testing , Monocytes (Bld) [#/Vol] 0.6 10*3/uL Normal 0.0-0.8 [facility] Comment on above: Performed By: #### G LULS #### Point of Care testing , Monocytes/100 WBC (Bld) 7.0 % Normal . [facility] Comment on above: Performed By: #### G LULS #### Point of Care testing , Neutrophils (Bld) [#/Vol] 3.6 10*3/uL Normal 1.8-7.7 [facility] Comment on above: Performed By: #### G LULS #### Point of Care testing , Neutrophils/100 WBC (Bld) 45.6 % Normal . [facility] Comment on above: Performed By: #### G LULS #### Point of Care testing , NRBC% 0.1 /100{WBC} Normal 0-0.5 [facility] Comment on above: Performed By: #### G LULS #### Point of Care testing , Ovalocytes Slight Normal [facility] Comment on above: Performed By: #### G LULS #### Point of Care testing , Platelet Estimate Normal Normal Normal [facility] Comment on above: Performed By: #### G LULS #### Point of Care testing , Platelet mean volume (Bld) [Entitic vol] 9.8 fL Normal 6.6-10.1 [facility] Comment on above: Performed By: #### G LULS #### Point of Care testing , Platelet Morphology Normal Normal Normal [facility] Comment on above: Result Comment: PERF ORMED BY: [facility] [address] [place] [address] PATHOLOGIST [employer] ANDRE PERALTA M.D. Performed By: #### G LULS #### Point of Care testing , Platelets (Bld) [#/Vol] 243 10*3/uL Normal 150-450 [facility] Comment on above: Performed By: #### G LULS #### Point of Care testing , Poikilocytosis Moderate Normal [facility] Comment on above: Performed By: #### G LULS #### Point of Care testing , RBC (Bld) [#/Vol] 4.43 10*6/uL Normal 3.90-5.60 [facility] Comment on above: Performed By: #### G LULS #### Point of Care testing , Schistocytes Slight Normal [facility] Comment on above: Performed By: #### G LULS #### Point of Care testing , Target Cells Slight Normal [facility] Comment on above: Performed By: #### G LULS #### Point of Care testing , WBC (Bld) [#/Vol] 7.9 10*3/uL Normal 4.1-10.5 [facility] Comment on above: Performed By: #### G LULS #### Point of Care testing , Schistocytes [Presence] in B lood by Light microscopyOrdered By: Sushant Cordon on 06-19-2024 Schistocytes LM Ql (Bld) Schistocytes [Presence] in Blood by Light microscopy [facility] Serum or plasma anion gap de terminationOrdered By: Sushant Cordon on 06-19-2024 Anion gap [Moles/Vol] Serum or plasma an ion gap determination 6.0-15.0 [facility] Sodium [Moles/volume] in Ser um or PlasmaOrdered By: Sushant Cordon on 06-19-2024 Sodium [Moles/Vol] Sodium [Moles/volume ] in Serum or Plasma 136-145 [facility] Target cells [Presence] in B lood by Light microscopyOrdered By: Sushant Cordon on 06-19-2024 Target cells LM Ql (Bld) Target cells [facility] Urea nitrogen [Mass/volume] in Serum or PlasmaOrdered By: Sushant Cordon on 06-19-2024 Urea nitrogen [Mass/Vol] Urea nitrogen [Mass/volume] in Serum or Plasma 7-25 [facility] WBC Auto (Bld) [#/Vol]Ordere d By: Sushant Cordon on 06-19-2024 WBC (Bld) [#/Vol] Leukocytes [#/volume ] in Blood by Automated count 4.1-10.5 [facility] aPTT in Platelet poor plasma by Coagulation assayOrdered By: Sushant Cordon on 06-19-2024 aPTT Coag (PPP) [Time] Activated partial thromboplastin time (aPTT) in platelet poor plasma by coagulation a 25.1-36.5 [facility] Comment on above: A hematocrit value g reater than 55% may lead to inaccurate results in coagulation testing. Patients having hematocrit values >55% require a special collection tube for coagulation studies. Please contact the laboratory at [phone] for redraw instructions. Acanthocytes [Presence] in B lood by Light microscopyOrdered By: Jose Alfredo Brantley on 06-18-2024 Acanthocytes LM Ql (Bld) Acanthocytes [Presence] in Blood by Light microscopy [facility] Alanine aminotransferase [En zymatic activity/volume] in Serum or PlasmaOrdered By: Jose Alfredo Brantley on 06-18-2024 ALT [Catalytic activity/Vol] Alanine aminotransferase [Enzymatic activity/volume] in Serum or Plasma 7-52 [facility] Albumin [Mass/volume] in Ser um or Plasma by Bromocresol green (BCG) dye binding methoOrdered By: Jose Alfredo Brantley on 06-18-2024 Albumin BCG dye [Mass/Vol] Albumin [Mass/volume] in Serum or Plasma by Bromocresol green (BCG) dye binding metho Low 3.5-5.7 [facility] Alkaline phosphatase [Enzyma tic activity/volume] in Serum or PlasmaOrdered By: Jose Alfredo Brantley on 06-18-2024 ALP [Catalytic activity/Vol] Alkaline phosphatase [Enzymatic activity/volume] in Serum or Plasma High 34-104 [facility] Anisocytosis LM Ql (Bld)Orde red By: Jose Alfredo Brantley on 06-18-2024 Anisocytosis Ql (Bld) Anisocytosis [Pres ence] in Blood by Light microscopy [facility] Aspartate aminotransferase [ Enzymatic activity/volume] in Serum or PlasmaOrdered By: Jose Alfredo Brantley on 06-18-2024 AST [Catalytic activity/Vol] Aspartate aminotransferase [Enzymatic activity/volume] in Serum or Plasma 13-39 [facility] Basophils Auto (Bld) [#/Vol] Ordered By: Jose Alfredo Brantley on 06-18-2024 Basophils (Bld) [#/Vol] Automated basophil count [facility] Basophils/100 WBC Auto (Bld) Ordered By: Jose Alfredo Brantley on 06-18-2024 Basophils/100 WBC (Bld) Automated basophil % [facility] Bilirubin.total [Mass/volume ] in Serum or PlasmaOrdered By: Jose Alfredo Brantley on 06-18-2024 Bilirubin [Mass/Vol] Bilirubin.total [Mass/volume] in Serum or Plasma 0.3-1.0 [facility] Geo cells [Presence] in Blo od by Light microscopyOrdered By: Jose Alfredo Brantley on 06-18-2024 Geo cells LM Ql (Bld) Geo cells [Prese nce] in Blood by Light microscopy [facility] Calcium [Mass/volume] in Ser um or PlasmaOrdered By: Jose Alfredo Brantley on 06-18-2024 Calcium [Mass/Vol] Calcium [Mass/volume ] in Serum or Plasma 8.6-10.3 [facility] Carbon dioxide, total [Moles /volume] in Serum or PlasmaOrdered By: Jose Alfredo Brantley on 06-18-2024 CO2 [Moles/Vol] Carbon dioxide, tota l [Moles/volume] in Serum or Plasma 21.0-31.0 [facility] Chloride [Moles/volume] in S jihan or PlasmaOrdered By: Jose Alfredo Brantley on 06-18-2024 Chloride [Moles/Vol] Chloride [Moles/vol ume] in Serum or Plasma 98-107 [facility] Comprehensive Metabolic Pane jairo 06-18-2024 Albumin [Mass/Vol] 3.4 g/dL Low 3.5-5.7 [facility] Comment on above: Performed By: #### D IFF CBC, CMP ####[facility] [id number] [place] [id number] [facility] Albumin/Globulin [Mass ratio] 1.1 {ratio} Normal [facility] Comment on above: Performed By: #### D IFF CBC, CMP ####[facility] [id number] [place] [address] [facility] ALP [Catalytic activity/Vol] 109 U/L High 34-104 [facility] Comment on above: Performed By: #### D IFF CBC, CMP ####[place] [id number] [place] [address] [facility] ALT [Catalytic activity/Vol] 14 U/L Normal 7-52 [facility] Comment on above: Performed By: #### D IFF CBC, CMP ####[place] [address] [place] [address] [facility] Anion gap [Moles/Vol] 11.4 mmol/L Normal 6.0-15.0 [facility] Comment on above: Performed By: #### D IFF CBC, CMP ####[place] [address] [place] [address] [facility] AST [Catalytic activity/Vol] 21 U/L Normal 13-39 [facility] Comment on above: Performed By: #### D IFF CBC, CMP ####[address] [address] [facility] Bilirubin [Mass/Vol] 0.4 mg/dL Normal 0.3-1.0 [facility] Comment on above: Performed By: #### D IFF CBC, CMP ####[address] [address] [facility] Calcium [Mass/Vol] 8.7 mg/dL Normal 8.6-10.3 [facility] Comment on above: Performed By: #### D IFF CBC, CMP ####[address] [address] [place] Chloride [Moles/Vol] 102 mmol/L Normal 98-107 [facility] Comment on above: Performed By: #### D IFF CBC, CMP ####[address] [address] [facility] CO2 [Moles/Vol] 27.6 mmol/L Normal 21.0-31.0 [facility] Comment on above: Performed By: #### D IFF CBC, CMP ####[place] [address] [place] [address] [facility] Creatinine [Mass/Vol] 0.96 mg/dL Normal 0.70-1.30 [facility] Comment on above: Performed By: #### D IFF CBC, CMP ####[place] [address] [place] [address] [facility] Creatinine Clr Calc Pharmacy 50.22 Normal [facility] Comment on above: Result Comment: PERF ORMED BY: [facility] [address] [id number] PATHOLOGIST [employer] ANDRE PERALTA M.D. Performed By: #### D IFF CBC, CMP ####[place] [address] [place] [id number] [place] GFR/1.73 sq M.predicted MDRD (S/P/Bld) [Vol rate/Area] mL/min/{1.73_m2} Normal [facility] Comment on above: Performed By: #### D IFF CBC, CMP ####[place] [id number] [facility] Globulin (S) [Mass/Vol] 3.0 g/dL Normal [facility] Comment on above: Performed By: #### D IFF CBC, CMP ####[place] [id number] [facility] Glucose [Mass/Vol] 85 mg/dL Normal 70-100 [facility] Comment on above: Result Comment: Gray Glucose Reference Range is dependent on time and content of last meal. Glucose of more than 200 mg/dL in a nonstressed, ambulatory subject supports the diagnosis of Diabetes Mellitus. ADA recommended reference range Performed By: #### D IFF CBC, CMP ####[place] [id number] [facility] Potassium [Moles/Vol] 4.0 mmol/L Normal 3.5-5.1 [facility] Comment on above: Performed By: #### D IFF CBC, CMP ####[place] [id number] [facility] Protein [Mass/Vol] 6.4 g/dL Normal 6.4-8.9 [facility] Comment on above: Performed By: #### D IFF CBC, CMP ####[address] Sodium [Moles/Vol] 137 mmol/L Normal 136-145 [facility] Comment on above: Performed By: #### D IFF CBC, CMP ####[address] Urea nitrogen [Mass/Vol] 21 mg/dL Normal 7-25 [facility] Comment on above: Performed By: #### D IFF CBC, CMP ####[address] Creatinine [Mass/volume] in Serum or PlasmaOrdered By: Jose Alfredo Brantley on 06-18-2024 Creatinine [Mass/Vol] Creatinine [Mass/v olume] in Serum or Plasma 0.70-1.30 [facility] Diff and CBCon 06-18-2024 Acanthocytes Marked Normal [facility] Comment on above: Performed By: #### D IFF CBC, CMP ####[address] Anisocytosis Ql (Bld) Marked Normal [facility] Comment on above: Performed By: #### D IFF CBC, CMP ####[address] Crenated RBC Moderate Normal [facility] Comment on above: Performed By: #### D IFF CBC, CMP ####[address] Eosinophils/100 WBC (Bld) 4 % High 1-3 [facility] Comment on above: Performed By: #### D IFF CBC, CMP ####[address] Erythrocyte distribution width (RBC) [Ratio] 20.2 % High 12.0-14.8 [facility] Comment on above: Performed By: #### D IFF CBC, CMP ####[address] Hematocrit (Bld) [Volume fraction] 35.5 % Low 38.8-50.0 [facility] Comment on above: Performed By: #### D IFF CBC, CMP ####[address] Hemoglobin (Bld) [Mass/Vol] 11.8 g/dL Low 13.0-17.0 [facility] Comment on above: Performed By: #### D IFF CBC, CMP ####[address] Hypochromasia Slight Normal [facility] Comment on above: Performed By: #### D IFF CBC, CMP ####[address] Large Platelets Slight Normal [facility] Comment on above: Result Comment: PERF ORMED BY: [facility] [address] [place] [address] PATHOLOGIST [employer] ANDRE PERALTA M.D. Performed By: #### D IFF CBC, CMP ####[address] Lymphocytes/100 WBC (Bld) 15 % Low 18-42 [facility] Comment on above: Performed By: #### D IFF CBC, CMP ####[address] Macrocytosis Slight Normal [facility] Comment on above: Performed By: #### D IFF CBC, CMP ####[address] MCH (RBC) [Entitic mass] 25.6 pg Low 27.5-35.2 [facility] Comment on above: Performed By: #### D IFF CBC, CMP ####[address] MCV (RBC) [Entitic vol] 76.7 fL Low 83.5-101 [facility] Comment on above: Performed By: #### D IFF CBC, CMP ####[address] Mean Corpuscular HGB Conc 33.3 g/dL Normal 32.5-35.6 [facility] Comment on above: Performed By: #### D IFF CBC, CMP ####[place] [id number] [facility] Microcytosis Slight Normal [facility] Comment on above: Performed By: #### D IFF CBC, CMP ####[place] [id number] [facility] Monocytes/100 WBC (Bld) 12 % High 2-11 [facility] Comment on above: Performed By: #### D IFF CBC, CMP ####[place] [id number] [facility] Platelet Estimate Normal Normal Normal [facility] Comment on above: Performed By: #### D IFF CBC, CMP ####[address] [address] [facility] Platelet mean volume (Bld) [Entitic vol] 10.1 fL Normal 6.6-10.1 [facility] Comment on above: Performed By: #### D IFF CBC, CMP ####[address] [address] [facility] Platelets (Bld) [#/Vol] 239 10*3/uL Normal 150-450 [facility] Comment on above: Performed By: #### D IFF CBC, CMP ####[address] [address] [facility] Poikilocytosis Marked Normal [facility] Comment on above: Performed By: #### D IFF CBC, CMP ####[address] [address] [facility] Polychromasia Slight Normal [facility] Comment on above: Performed By: #### D IFF CBC, CMP ####[address] [address] [facility] RBC (Bld) [#/Vol] 4.63 10*6/uL Normal 3.90-5.60 [facility] Comment on above: Performed By: #### D IFF CBC, CMP ####[facility] [id number] Schistocytes Moderate Normal [facility] Comment on above: Performed By: #### D IFF CBC, CMP ####[facility] Segmented neutrophils/100 WBC (Bld) 69 % Normal 50-70 [facility] Comment on above: Performed By: #### D IFF CBC, CMP ####[place] [address] Target Cells Moderate Normal [facility] Comment on above: Performed By: #### D IFF CBC, CMP ####[place] [address] WBC (Bld) [#/Vol] 7.3 10*3/uL Normal 4.1-10.5 [facility] Comment on above: Performed By: #### D IFF CBC, CMP ####[place] [address] Eosinophils Auto (Bld) [#/Vo l]Ordered By: Jose Alfredo Brantley on 06-18-2024 Eosinophils (Bld) [#/Vol] Automated eosinophil count [facility] Eosinophils/100 WBC Auto (Bl d)Ordered By: Jose Alfredo Brantley on 06-18-2024 Eosinophils/100 WBC (Bld) Automated eosinophil % [facility] Eosinophils/100 WBC Manual c nt (Bld)Ordered By: Jose Alfredo Brantley on 06-18-2024 Eosinophils/100 WBC (Bld) Eosinophils/100 leukocytes in Blood by Manual count High 1-3 [facility] Erythrocyte distribution wid th Auto (RBC) [Ratio]Ordered By: Jose Alfredo Brantley on 06-18-2024 Erythrocyte distribution width (RBC) [Ratio] Erythrocyte distribution width [Ratio] by Automated count High 12.0-14.8 [facility] Erythrocyte morphology findi ng [Identifier] in BloodOrdered By: Jose Alfredo Brantley on 06-18-2024 RBC morphology finding Nom (Bld) RBC morphology [facility] Globulin Calc (S) [Mass/Vol] Ordered By: Jose Alfredo Brantley on 06-18-2024 Globulin (S) [Mass/Vol] Serum globulin measurement by calculation (mass/volume) [facility] Glucose Glucometer (BldC) [M ass/Vol]Ordered By: Jose Alfredo Brantley on 06-18-2024 Glucose [Mass/Vol] Capillary blood gluc ose measurement by glucometer (mass/volume) [facility] Comment on above: Random Glucose Refer ence Range is dependent on time and content of last meal. Glucose of more than 200 mg/dL in a nonstressed, ambulatory subject supports the diagnosis of Diabetes Mellitus. Glucose Poct Glucometerson 1 08-19-2023 Glucose [Mass/Vol] 386 mg/dL Normal [facility] Comment on above: Result Comment: [facility] Glucose Reference Range is dependent on time and content of last meal. Glucose of more than 200 mg/dL in a nonstressed, ambulatory subject supports the diagnosis of Diabetes Mellitus. PERFORMED BY: [address] [place] [address] PATHOLOGIST [employer] ANDRE PERALTA M.D. Performed By: #### G LULS #### Point of Care testing , Commemt1 Normal [facility] Comment on above: Result Comment: Glu2 : Will Repeat Test Performed By: #### G LULS #### Point of Care testing , Commemt2 WILL NOTIFY /KARIN Normal [facility] Comment on above: Result Comment: PERF ORMED BY: [facility] [address] [facility] [place] [address] PATHOLOGIST [employer] ANDRE PERALTA M.D. Performed By: #### G LULS #### Point of Care testing , Glucose [Mass/Vol] 417 mg/dL Off scale high [facility] Comment on above: Result Comment: Gray Glucose Reference Range is dependent on time and content of last meal. Glucose of more than 200 mg/dL in a nonstressed, ambulatory subject supports the diagnosis of Diabetes Mellitus. Performed By: #### G LULS #### Point of Care testing , Commemt1 Normal [facility] Comment on above: Result Comment: Glu2 : Will Repeat Test PERFORMED BY: [address] [place] [address] PATHOLOGIST [employer] ANDRE PERALTA M.D. Performed By: #### G LULS #### Point of Care testing , Glucose [Mass/Vol] 483 mg/dL Off scale high [facility] Comment on above: Result Comment: Gray om Glucose Reference Range is dependent on time and content of last meal. Glucose of more than 200 mg/dL in a nonstressed, ambulatory subject supports the diagnosis of Diabetes Mellitus. Performed By: #### G LULS #### Point of Care testing , Glucose [Mass/Vol] 393 mg/dL Normal [facility] Comment on above: Result Comment: Gray om Glucose Reference Range is dependent on time and content of last meal. Glucose of more than 200 mg/dL in a nonstressed, ambulatory subject supports the diagnosis of Diabetes Mellitus. PERFORMED BY: [address] [place] [address] PATHOLOGIST [employer] ANDRE PERALTA M.D. Performed By: #### G LULS #### Point of Care testing , Glucose [Mass/Vol] 85 mg/dL Normal [facility] Comment on above: Result Comment: Gray om Glucose Reference Range is dependent on time and content of last meal. Glucose of more than 200 mg/dL in a nonstressed, ambulatory subject supports the diagnosis of Diabetes Mellitus. PERFORMED BY: [address] [place] [address] PATHOLOGIST [employer] ANDRE PERALTA M.D. Performed By: #### G LULS #### Point of Care testing , Glucose [Mass/volume] in Ser um or PlasmaOrdered By: Jose Alfredo Brantley on 06-18-2024 Glucose [Mass/Vol] Glucose [Mass/volume ] in Serum or Plasma 70-100 [facility] Comment on above: ADA recommended refe rence rangeRandom Glucose Reference Range is dependent on time and content of last meal. Glucose of more than 200 mg/dL in a nonstressed, ambulatory subject supports the diagnosis of Diabetes Mellitus. Hematocrit Auto (Bld) [Volum e fraction]Ordered By: Jose Alfredo Brantley on 06-18-2024 Hematocrit (Bld) [Volume fraction] Hematocrit [Volume Fraction] of Blood by Automated count Low 38.8-50.0 [facility] Hemoglobin [Mass/volume] in BloodOrdered By: Jose Alfredo Brantley on 06-18-2024 Hemoglobin (Bld) [Mass/Vol] Hemoglobin [Mass/volume] in Blood Low 13.0-17.0 [facility] Hypochromia LM Ql (Bld)Order ed By: Jose Alfredo Brantley on 06-18-2024 Hypochromia Ql (Bld) Hypochromia [Presen ce] in Blood by Light microscopy [facility] Leukocytes [#/volume] correc robert for nucleated erythrocytes in Blood by Automated counOrdered By: Jose Alfredo Brantley on 06-18-2024 WBC corrected for nucl RBC Auto (Bld) [#/Vol] Leukocytes [#/volume] corrected for nucleated erythrocytes in Blood by Automated coun 4.1-10.5 [facility] Lymphocytes Auto (Bld) [#/Vo l]Ordered By: Jose Alfredo Brantley on 06-18-2024 Lymphocytes (Bld) [#/Vol] Lymphocytes [#/volume] in Blood by Automated count [facility] Lymphocytes/100 WBC Auto (Bl d)Ordered By: Jose Alfredo Brantley on 06-18-2024 Lymphocytes/100 WBC (Bld) Lymphocytes/100 leukocytes in Blood by Automated count [facility] Lymphocytes/100 WBC Manual c nt (Bld)Ordered By: Jose Alfredo Brantley on 06-18-2024 Lymphocytes/100 WBC (Bld) Lymphocytes/100 leukocytes in Blood by Manual count Low 18-42 [facility] MCH Auto (RBC) [Entitic mass ]Ordered By: Jose Alfredo Brantley on 06-18-2024 MCH (RBC) [Entitic mass] MCH [Entitic mass] by Automated count Low 27.5-35.2 [facility] MCHC Auto (RBC) [Mass/Vol]Or dered By: Jose Alfredo Brantley on 06-18-2024 MCHC (RBC) [Mass/Vol] MCHC [Mass/volume] by Automated count 32.5-35.6 [facility] MCV Auto (RBC) [Entitic vol] Ordered By: Jose Alfredo Brantley on 06-18-2024 MCV (RBC) [Entitic vol] MCV [Entitic volume] by Automated count Low 83.5-101 [facility] Macrocytes LM Ql (Bld)Ordere d By: Jose Alfredo Brantley on 06-18-2024 Macrocytes Ql (Bld) Macrocytes [Presence ] in Blood by Light microscopy [facility] Microcytes LM Ql (Bld)Ordere d By: Jose Alfredo Brantley on 06-18-2024 Microcytes Ql (Bld) Microcytes [Presence ] in Blood by Light microscopy [facility] Monocytes Auto (Bld) [#/Vol] Ordered By: Jose Alfredo Brantley on 06-18-2024 Monocytes (Bld) [#/Vol] Automated blood monocyte count [facility] Monocytes/100 WBC Auto (Bld) Ordered By: Jose Alfredo Brantley on 06-18-2024 Monocytes/100 WBC (Bld) Automated monocyte % [facility] Monocytes/100 WBC Manual cnt (Bld)Ordered By: Jose Alfredo Brantley on 06-18-2024 Monocytes/100 WBC (Bld) Monocytes/100 leukocytes in Blood by Manual count High 2-11 [facility] Neutrophils Auto (Bld) [#/Vo l]Ordered By: Jose Alfredo Brantley on 06-18-2024 Neutrophils (Bld) [#/Vol] Neutrophils [#/volume] in Blood by Automated count [facility] Neutrophils/100 WBC Auto (Bl d)Ordered By: Jose Alfredo Brantley on 06-18-2024 Neutrophils/100 WBC (Bld) Automated neutrophil % [facility] No Panel InformationOrdered By: Jose Alfredo Brantley on 06-18-2024 Bedside Glucose #[address]/rn [facility] Bedside Glucose Comment See comment [facility] Comment on above: Glu2: Will Repeat Te st Estimated GFR (CKD-EPI) > 60.0 mL/Min [facility] Creatinine Clearance (Chem 50.22 [facility] Nucleated erythrocytes [Pres ence] in Blood by Automated countOrdered By: Jose Alfredo Brantley on 06-18-2024 Nucleated RBC Auto Ql (Bld) Nucleated erythrocytes [Presence] in Blood by Automated count [facility] Platelet adequacy [Presence] in Blood by Light microscopyOrdered By: Jose Alfredo Brantley on 06-18-2024 Platelets LM Ql (Bld) Platelet adequacy [Presence] in Blood by Light microscopy Normal [facility] Platelet mean volume Auto (B ld) [Entitic vol]Ordered By: Jose Alfredo Brantley on 06-18-2024 Platelet mean volume (Bld) [Entitic vol] Platelet mean volume [Entitic volume] in Blood by Automated count 6.6-10.1 [facility] Platelet morphology finding [Identifier] in BloodOrdered By: Jose Alfredo Brantley on 06-18-2024 Platelet morphology finding Nom (Bld) Platelet morphology finding [Identifier] in Blood [facility] Platelets Auto (Bld) [#/Vol] Ordered By: Jose Alfredo Brantley on 06-18-2024 Platelets (Bld) [#/Vol] Platelets [#/volume] in Blood by Automated count 150-450 [facility] Platelets Large [Presence] i n Blood by Light microscopyOrdered By: Jose Alfredo Brantley on 06-18-2024 Platelets Large LM Ql (Bld) Platelets Large [Presence] in Blood by Light microscopy [facility] Poikilocytosis [Presence] in Blood by Light microscopyOrdered By: Jose Alfredo Brantley on 06-18-2024 Poikilocytosis LM Ql (Bld) Poikilocytosis [Presence] in Blood by Light microscopy [facility] Polychromasia [Presence] in Blood by Light microscopyOrdered By: Jose Alfredo Brantley on 06-18-2024 Polychromasia LM Ql (Bld) Polychromasia [Presence] in Blood by Light microscopy [facility] Potassium [Moles/volume] in Serum or PlasmaOrdered By: Jose Alfredo Brantley on 06-18-2024 Potassium [Moles/Vol] Potassium [Moles/v olume] in Serum or Plasma 3.5-5.1 [facility] Protein [Mass/volume] in Ser um or PlasmaOrdered By: Jose Alfredo Brantley on 06-18-2024 Protein [Mass/Vol] Protein [Mass/volume ] in Serum or Plasma 6.4-8.9 [facility] RBC Auto (Bld) [#/Vol]Ordere d By: Jose Alfredo Brantley on 06-18-2024 RBC (Bld) [#/Vol] Erythrocytes [#/volu me] in Blood by Automated count 3.90-5.60 [facility] Schistocytes [Presence] in B lood by Light microscopyOrdered By: Jose Alfredo Brantley on 06-18-2024 Schistocytes LM Ql (Bld) Schistocytes [Presence] in Blood by Light microscopy [facility] Segmented neutrophils/100 WB C Manual cnt (Bld)Ordered By: Jose Alfredo Brantley on 06-18-2024 Segmented neutrophils/100 WBC (Bld) Manual blood segmented neutrophils/100 leukocytes 50-70 [facility] Serum or plasma albumin/glob ulin mass ratioOrdered By: Jose Alfredo Brantley on 06-18-2024 Albumin/Globulin [Mass ratio] Serum or plasma albumin/globulin mass ratio [facility] Serum or plasma anion gap de terminationOrdered By: Jose Alfredo Brantley on 06-18-2024 Anion gap [Moles/Vol] Serum or plasma an ion gap determination 6.0-15.0 [facility] Sodium [Moles/volume] in Ser um or PlasmaOrdered By: Jose Alfredo Brantley on 06-18-2024 Sodium [Moles/Vol] Sodium [Moles/volume ] in Serum or Plasma 136-145 [facility] Target cells [Presence] in B lood by Light microscopyOrdered By: Jose Alfredo Brantley on 06-18-2024 Target cells LM Ql (Bld) Target cells [facility] Urea nitrogen [Mass/volume] in Serum or PlasmaOrdered By: Jose Alfredo Brantley on 06-18-2024 Urea nitrogen [Mass/Vol] Urea nitrogen [Mass/volume] in Serum or Plasma 7-25 [facility] WBC Auto (Bld) [#/Vol]Ordere d By: Jose Alfredo Brantley on 06-18-2024 WBC (Bld) [#/Vol] Leukocytes [#/volume ] in Blood by Automated count 4.1-10.5 [facility] Comprehensive Metabolic Pane jairo 06-17-2024 Albumin [Mass/Vol] 3.3 g/dL Low 3.5-5.7 [facility] Comment on above: Performed By: #### C MP, SCAN CBC, PHOS, MG ####[place] [id number] [place] [id number] [facility] Albumin/Globulin [Mass ratio] 1.2 {ratio} Normal [facility] Comment on above: Performed By: #### C MP, SCAN CBC, PHOS, MG ####[place] [address] [place] [id number] [facility] ALP [Catalytic activity/Vol] 109 U/L High 34-104 [facility] Comment on above: Performed By: #### C MP, SCAN CBC, PHOS, MG ####[place] [address] [place] [id number] [facility] ALT [Catalytic activity/Vol] 12 U/L Normal 7-52 [facility] Comment on above: Performed By: #### C MP, SCAN CBC, PHOS, MG ####[place] [id number] [facility] Anion gap [Moles/Vol] 11.1 mmol/L Normal 6.0-15.0 [facility] Comment on above: Performed By: #### C MP, SCAN CBC, PHOS, MG ####[place] [id number] [facility] AST [Catalytic activity/Vol] 20 U/L Normal 13-39 [facility] Comment on above: Performed By: #### C MP, SCAN CBC, PHOS, MG ####[place] [id number] [facility] Bilirubin [Mass/Vol] 0.4 mg/dL Normal 0.3-1.0 [facility] Comment on above: Performed By: #### C MP, SCAN CBC, PHOS, MG ####[place] [id number] [facility] Calcium [Mass/Vol] 8.4 mg/dL Low 8.6-10.3 [facility] Comment on above: Performed By: #### C MP, SCAN CBC, PHOS, MG ####[place] [id number] [facility] Chloride [Moles/Vol] 101 mmol/L Normal 98-107 [facility] Comment on above: Performed By: #### C MP, SCAN CBC, PHOS, MG ####[address] CO2 [Moles/Vol] 27.8 mmol/L Normal 21.0-31.0 [facility] Comment on above: Performed By: #### C MP, SCAN CBC, PHOS, MG ####[address] Creatinine [Mass/Vol] 0.79 mg/dL Normal 0.70-1.30 [facility] Comment on above: Performed By: #### C MP, SCAN CBC, PHOS, MG ####[address] Creatinine Clr Calc Pharmacy 62.66 Normal [facility] Comment on above: Performed By: #### C MP, SCAN CBC, PHOS, MG ####[address] GFR/1.73 sq M.predicted MDRD (S/P/Bld) [Vol rate/Area] mL/min/{1.73_m2} Normal [facility] Comment on above: Performed By: #### C MP, SCAN CBC, PHOS, MG ####[address] Globulin (S) [Mass/Vol] 2.8 g/dL Normal [facility] Comment on above: Performed By: #### C MP, SCAN CBC, PHOS, MG ####[address] Glucose [Mass/Vol] 79 mg/dL Normal 70-100 [facility] Comment on above: Result Comment: Gray Glucose Reference Range is dependent on time and content of last meal. Glucose of more than 200 mg/dL in a nonstressed, ambulatory subject supports the diagnosis of Diabetes Mellitus. ADA recommended reference range Performed By: #### C MP, SCAN CBC, PHOS, MG ####[address] Potassium [Moles/Vol] 3.9 mmol/L Normal 3.5-5.1 [facility] Comment on above: Performed By: #### C MP, SCAN CBC, PHOS, MG ####[facility] [place] [address] [facility] Protein [Mass/Vol] 6.1 g/dL Low 6.4-8.9 [facility] Comment on above: Performed By: #### C MP, SCAN CBC, PHOS, MG ####[address] [address] [facility] Sodium [Moles/Vol] 136 mmol/L Normal 136-145 [facility] Comment on above: Performed By: #### C MP, SCAN CBC, PHOS, MG ####[place] [address] Urea nitrogen [Mass/Vol] 22 mg/dL Normal 7-25 [facility] Comment on above: Performed By: #### C MP, SCAN CBC, PHOS, MG ####[place] [id number] [facility] Glucose Poct Glucometerson 1 08-18-2023 Commemt1 Glu2: Cleaned Meter Normal [facility] Comment on above: Result Comment: PERF ORMED BY: [facility] [address] [facility] [place] [address] PATHOLOGIST QUEEN'[employer] COUNSEL ANDRE PERALTA M.D. Performed By: #### G LULS #### Point of Care testing , Glucose [Mass/Vol] 229 mg/dL Normal [facility] Comment on above: Result Comment: [facility] Glucose Reference Range is dependent on time and content of last meal. Glucose of more than 200 mg/dL in a nonstressed, ambulatory subject supports the diagnosis of Diabetes Mellitus. Performed By: #### G LULS #### Point of Care testing , Commemt1 Glu2: Cleaned Meter Normal [facility] Comment on above: Result Comment: PERF ORMED BY: [facility] [address] [address] [place] [id number] PATHOLOGIST QUEEN'S COUNSEL ANDRE PERALTA M.D. Performed By: #### G LULS #### Point of Care testing , Glucose [Mass/Vol] 250 mg/dL Normal [facility] Comment on above: Result Comment: Gray om Glucose Reference Range is dependent on time and content of last meal. Glucose of more than 200 mg/dL in a nonstressed, ambulatory subject supports the diagnosis of Diabetes Mellitus. Performed By: #### G LULS #### Point of Care testing , Glucose [Mass/Vol] 352 mg/dL Normal [facility] Comment on above: Result Comment: Gray om Glucose Reference Range is dependent on time and content of last meal. Glucose of more than 200 mg/dL in a nonstressed, ambulatory subject supports the diagnosis of Diabetes Mellitus. PERFORMED BY: [place] [address] PATHOLOGIST QUEEN'S COUNSEL ANDRE PERALTA M.D. Performed By: #### G LULS ####Point of Care testing, Glucose [Mass/Vol] 82 mg/dL Normal [facility] Comment on above: Result Comment: Gray om Glucose Reference Range is dependent on time and content of last meal. Glucose of more than 200 mg/dL in a nonstressed, ambulatory subject supports the diagnosis of Diabetes Mellitus. PERFORMED BY: [address] [address] PATHOLOGIST QUEEN'S COUNSEL ANDRE PERALTA M.D. Performed By: #### G LULS ####Point of Care testing, Magnesiumon 06-17-2024 Magnesium [Mass/Vol] 1.7 mg/dL Low 1.9-2.7 [facility] Comment on above: Result Comment: PERF ORMED BY: [address] [address] PATHOLOGIST QUEEN'S COUNSEL ANDRE PERALTA M.D. Performed By: #### C MP, SCAN CBC, PHOS, MG ####[facility] [address] [place] [id number] [facility] Magnesium [Mass/volume] in S jihan or PlasmaOrdered By: Jose Alfredo Brantley on 06-17-2024 Magnesium [Mass/Vol] Magnesium [Mass/vol ume] in Serum or Plasma Low 1.9-2.7 [facility] Phosphate [Mass/volume] in S jihan or PlasmaOrdered By: Jose Alfredo Brantley on 06-17-2024 Phosphate [Mass/Vol] Phosphate [Mass/vol ume] in Serum or Plasma 2.5-4.5 [facility] Phosphoruson 06-17-2024 Phosphate [Mass/Vol] 3.7 mg/dL Normal 2.5-4.5 [facility] Comment on above: Performed By: #### C MP, SCAN CBC, PHOS, MG ####[address] Scan and CBCon 06-17-2024 Acanthocytes Moderate Normal [facility] Comment on above: Performed By: #### C MP, SCAN CBC, PHOS, MG ####[address] Anisocytosis Ql (Bld) Marked Normal [facility] Comment on above: Performed By: #### C MP, SCAN CBC, PHOS, MG ####[address] Basophils (Bld) [#/Vol] 0.1 10*3/uL Normal 0.0-0.2 [facility] Comment on above: Performed By: #### C MP, SCAN CBC, PHOS, MG ####[address] Basophils/100 WBC (Bld) 0.9 % Normal . [facility] Comment on above: Performed By: #### C MP, SCAN CBC, PHOS, MG ####[address] Crenated RBC Slight Normal [facility] Comment on above: Performed By: #### C MP, SCAN CBC, PHOS, MG ####[address] Eosinophils (Bld) [#/Vol] 0.2 10*3/uL Normal 0.0-0.45 [facility] Comment on above: Performed By: #### C MP, SCAN CBC, PHOS, MG ####[address] Eosinophils/100 WBC (Bld) 2.0 % Normal . [facility] Comment on above: Performed By: #### C MP, SCAN CBC, PHOS, MG ####[address] Erythrocyte distribution width (RBC) [Ratio] 20.3 % High 12.0-14.8 [facility] Comment on above: Performed By: #### C MP, SCAN CBC, PHOS, MG ####[address] Hematocrit (Bld) [Volume fraction] 35.1 % Low 38.8-50.0 [facility] Comment on above: Performed By: #### C MP, SCAN CBC, PHOS, MG ####[address] Hemoglobin (Bld) [Mass/Vol] 11.5 g/dL Low 13.0-17.0 [facility] Comment on above: Performed By: #### C MP, SCAN CBC, PHOS, MG ####[address] Hypochromasia Moderate Normal [facility] Comment on above: Performed By: #### C MP, SCAN CBC, PHOS, MG ####[address] Large Platelets Slight Normal [facility] Comment on above: Result Comment: PERF ORMED BY: [facility] [address] [place] [address] PATHOLOGIST QUEEN'[employer] COUNSEL ANDRE PERALTA M.D. Performed By: #### C MP, SCAN CBC, PHOS, MG ####[address] Lymphocytes (Bld) [#/Vol] 1.7 10*3/uL Normal 1.00-4.8 [facility] Comment on above: Performed By: #### C MP, SCAN CBC, PHOS, MG ####[address] Lymphocytes/100 WBC (Bld) 19.4 % Normal . [facility] Comment on above: Performed By: #### C MP, SCAN CBC, PHOS, MG ####[address] MCH (RBC) [Entitic mass] 25.5 pg Low 27.5-35.2 [facility] Comment on above: Performed By: #### C MP, SCAN CBC, PHOS, MG ####[address] MCV (RBC) [Entitic vol] 77.8 fL Low 83.5-101 [facility] Comment on above: Performed By: #### C MP, SCAN CBC, PHOS, MG ####[address] Mean Corpuscular HGB Conc 32.8 g/dL Normal 32.5-35.6 [facility] Comment on above: Performed By: #### C MP, SCAN CBC, PHOS, MG ####[address] Microcytosis Slight Normal [facility] Comment on above: Performed By: #### C MP, SCAN CBC, PHOS, MG ####[address] Monocytes (Bld) [#/Vol] 1.2 10*3/uL High 0.0-0.8 [facility] Comment on above: Performed By: #### C MP, SCAN CBC, PHOS, MG ####[address] Monocytes/100 WBC (Bld) 14.4 % Normal . [facility] Comment on above: Performed By: #### C MP, SCAN CBC, PHOS, MG ####[address] Neutrophils (Bld) [#/Vol] 5.4 10*3/uL Normal 1.8-7.7 [facility] Comment on above: Performed By: #### C MP, SCAN CBC, PHOS, MG ####[address] Neutrophils/100 WBC (Bld) 63.3 % Normal . [facility] Comment on above: Performed By: #### C MP, SCAN CBC, PHOS, MG ####[address] NRBC% 0.0 /100{WBC} Normal 0-0.5 [facility] Comment on above: Performed By: #### C MP, SCAN CBC, PHOS, MG ####[address] Platelet Estimate Normal Normal Normal [facility] Comment on above: Performed By: #### C MP, SCAN CBC, PHOS, MG ####[address] Platelet mean volume (Bld) [Entitic vol] 10.2 fL High 6.6-10.1 [facility] Comment on above: Performed By: #### C MP, SCAN CBC, PHOS, MG ####[address] Platelets (Bld) [#/Vol] 213 10*3/uL Normal 150-450 [facility] Comment on above: Performed By: #### C MP, SCAN CBC, PHOS, MG ####[address] Poikilocytosis Marked Normal [facility] Comment on above: Performed By: #### C MP, SCAN CBC, PHOS, MG ####[address] Polychromasia Slight Normal [facility] Comment on above: Performed By: #### C MP, SCAN CBC, PHOS, MG ####[place] [address] [place] [id number] [facility] RBC (Bld) [#/Vol] 4.52 10*6/uL Normal 3.90-5.60 [facility] Comment on above: Performed By: #### C MP, SCAN CBC, PHOS, MG ####[place] [id number] [facility] Schistocytes Moderate Normal [facility] Comment on above: Performed By: #### C MP, SCAN CBC, PHOS, MG ####[address] Target Cells Moderate Normal [facility] Comment on above: Performed By: #### C MP, SCAN CBC, PHOS, MG ####[place] [address] [place] [id number] [facility] WBC (Bld) [#/Vol] 8.5 10*3/uL Normal 4.1-10.5 [facility] Comment on above: Performed By: #### C MP, SCAN CBC, PHOS, MG ####[place] [id number] [facility] Bacteria identified Aer cx N om (Unsp spec)Ordered By: Vargas Reis on 06-16-2024 Superficial Wound Culture Abnormal [facility] Blood Cultureon 06-16-2024 Bacteria identified Cx Nom (Bld) NO GROWTH 5 DAYS PERFORMED BY: [facility] [address] [place] [address] PATHOLOGIST QUEEN'S COUNSEL ANDRE PERALTA M.D. Normal [facility] Comment on above: Performed By: #### G LULS #### Point of Care testing , Bacteria identified Cx Nom (Bld) NO GROWTH 5 DAYS PERFORMED BY: [facility] [address] [place] [id number] PATHOLOGIST QUEEN'S COUNSEL ANDRE PERALTA M.D. Normal [facility] Comment on above: Performed By: #### G LULS #### Point of Care testing , Bacteria identified Cx Nom (Bld) NO GROWTH 5 DAYS PERFORMED BY: [place] [address] PATHOLOGIST QUEEN'S COUNSEL ANDRE PERALTA M.D. Normal [facility] Comment on above: Performed By: #### G LULS #### Point of Care testing , CT abdomen w conon 4 CT abdomen w con [facility] [place] [address] [place] [address] CT Scan Report Signed Patient: Manolo Vickers MR#: [id number] 353 : 1935 Acct:[id number] Age/Sex: 89 / M ADM Date: 06/16/24 Loc: ER Room: Type: [facility] ER Attending Dr: Copies to: Vargas Reis APRN Ordering Provider: Vargas Reis APRN Date of Service: 06/16/24 CT/CT abdomen w con: abscess left abd CT Abdomen with contrast TECHNIQUE: Axial imaging with 2-D reconstruction.90 cc of Isovue-300. The CT exam was performed using one or more the following dose reduction techniques: Automated exposure control, adjustment of the MA and/or Kv according to patient size, or use of the iterative reconstruction technique. COMPARISON: 03/29/2018 History: Redness and swelling surrounding the insulin pump. This is present in the left mid lower abdominal region. LIMITATIONS: None LOWER THORAX mild atelectasis. Coronary artery calcification. LIVER: Pneumobilia likely postsurgical. GALLBLADDER: No gallbladder abnormality identified. BILE DUCTS: No dilatation SPLEEN: Splenectomy PANCREAS: Pancreatic resection changes. ADRENAL GLANDS: Unremarkable KIDNEYS:Bilateral nephrolithiasis measuring up to 4 mm. Bilateral renal cyst measuring up to 4.8 cm. AORTA: No abdominal aortic aneurysm identified. Atherosclerosis RETROPERITONEUM: No significant retroperitoneal abnormalities identified. MESENTERY:Unremarkable SMALL BOWEL: The small bowel loops are nondistended. APPENDIX: The appendix is normal. COLON: Unremarkable PNEUMOPERITONEUM: None PERITONEAL FLUID:None BONY STRUCTURES: Similar thoracolumbar degenerative change. ABDOMINAL WALL: 15 mm subcutaneous hypodensity in the left lower quadrant identified. Measures up to 15 mm. May represent small abscess versus seroma. Adjacent inflammation and wall thickening, consistent with cellulitis. CT/CT abdomen w con IMPRESSION: 15 mm subcutaneous hypodensity in the left lower quadrant. Consider small abscess versus seroma. Left lower quadrant at skin thickening and inflammatory changes suggesting cellulitis. No subcutaneous air. No acute intra-abdominal finding. Nephrolithiasis in bilateral renal cysts. Impression dictated by: Sheldon Johnson M.D.06/16/2024 3:48 PM Dictation Location: [place] [address] Transcribed By: [facility] 06/16/24 1548 Dictated By: Sheldon Johnson DO 06/16/24 1535 Signed By: 06/16/24 1548 Normal [facility] Comprehensive Metabolic Pane jairo 06-16-2024 Albumin [Mass/Vol] 3.5 g/dL Normal 3.5-5.7 [facility] Comment on above: Performed By: #### G LULS #### Point of Care testing , Albumin/Globulin [Mass ratio] 1.2 {ratio} Normal [facility] Comment on above: Performed By: #### G LULS #### Point of Care testing , ALP [Catalytic activity/Vol] 116 U/L High 34-104 [facility] Comment on above: Performed By: #### G LULS #### Point of Care testing , ALT [Catalytic activity/Vol] 17 U/L Normal 7-52 [facility] Comment on above: Performed By: #### G LULS #### Point of Care testing , Anion gap [Moles/Vol] 10.2 mmol/L Normal 6.0-15.0 [facility] Comment on above: Performed By: #### G LULS #### Point of Care testing , AST [Catalytic activity/Vol] 24 U/L Normal 13-39 [facility] Comment on above: Performed By: #### G LULS #### Point of Care testing , Bilirubin [Mass/Vol] 0.4 mg/dL Normal 0.3-1.0 [facility] Comment on above: Performed By: #### G LULS #### Point of Care testing , Calcium [Mass/Vol] 8.8 mg/dL Normal 8.6-10.3 [facility] Comment on above: Performed By: #### G LULS #### Point of Care testing , Chloride [Moles/Vol] 98 mmol/L Normal 98-107 [facility] Comment on above: Performed By: #### G LULS #### Point of Care testing , CO2 [Moles/Vol] 30.4 mmol/L Normal 21.0-31.0 [facility] Comment on above: Performed By: #### G LULS #### Point of Care testing , Creatinine [Mass/Vol] 1.10 mg/dL Normal 0.70-1.30 [facility] Comment on above: Performed By: #### G LULS #### Point of Care testing , Creatinine Clr Calc Pharmacy 50.08 Normal [facility] Comment on above: Result Comment: PERF ORMED BY: [address] [place] [address] PATHOLOGIST QUEEN'S COUNSEL ANDRE PERALTA M.D. Performed By: #### G LULS #### Point of Care testing , GFR/1.73 sq M.predicted MDRD (S/P/Bld) [Vol rate/Area] mL/min/{1.73_m2} Normal [facility] Comment on above: Performed By: #### G LULS #### Point of Care testing , Globulin (S) [Mass/Vol] 3.0 g/dL Normal [facility] Comment on above: Performed By: #### G LULS #### Point of Care testing , Glucose [Mass/Vol] 118 mg/dL High 70-100 [facility] Comment on above: Result Comment: [place] Glucose Reference Range is dependent on time and content of last meal. Glucose of more than 200 mg/dL in a nonstressed, ambulatory subject supports the diagnosis of Diabetes Mellitus. ADA recommended reference range Performed By: #### G LULS #### Point of Care testing , Potassium [Moles/Vol] 4.6 mmol/L Normal 3.5-5.1 [facility] Comment on above: Performed By: #### G LULS #### Point of Care testing , Protein [Mass/Vol] 6.5 g/dL Normal 6.4-8.9 [facility] Comment on above: Performed By: #### G LULS #### Point of Care testing , Sodium [Moles/Vol] 134 mmol/L Low 136-145 [facility] Comment on above: Performed By: #### G LULS #### Point of Care testing , Urea nitrogen [Mass/Vol] 29 mg/dL High 7-25 [facility] Comment on above: Performed By: #### G LULS #### Point of Care testing , ECG 12 lead ECGon 06-16-2024 ECG 12 lead ECG [place] [address] Electrocardiograph Report Signed Patient: Manolo Vickers MR#: [id number] 353 : 1935 Acct:[id number] Age/Sex: 89 / M ADM Date: 06/16/24 Loc: Room: [address] [place] [address] Type: ADM IN Attending Dr: Jose Alfredo Brantley MD Ordering Provider: Vargas Reis APRN Date of Service: 06/16/2401/02/1347 ECG/ECG 12 lead ECG: Skin/Abscess/Foreign Body Copies to: Test Reason : Blood Pressure : */* mmHG Vent. 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 Glucose of more than 200 mg/dL in a nonstressed, ambulatory subject supports the diagnosis of Diabetes Mellitus. PERFORMED BY: [address] [place] [address] PATHOLOGIST QUEEN'S COUNSEL ANDRE PERALTA M.D. Performed By: #### G LULS ####Point of Care testing, Commemt1 Normal [facility] Comment on above: Result Comment: Glu2 : Will Repeat Test Performed By: #### G LULS ####Point of Care testing, Commemt2 WILL NOTIFY /KARIN Normal [facility] Comment on above: Result Comment: PERF ORMED BY: [address] [place] [address] PATHOLOGIST QUEEN'S COUNSEL ANDRE PERALTA M.D. Performed By: #### G LULS ####Point of Care testing, Glucose [Mass/Vol] 401 mg/dL Off scale high [facility] Comment on above: Result Comment: [facility] Glucose Reference Range is dependent on time and content of last meal. Glucose of more than 200 mg/dL in a nonstressed, ambulatory subject supports the diagnosis of Diabetes Mellitus. Performed By: #### G LULS ####Point of Care testing, Helmet cells [Presence] in B lood by Light microscopyOrdered By: Vargas Reis on 06-16-2024 Helmet cells LM Ql (Bld) Helmet cell detection [facility] - Microbiology an d Antimicrobial susceptibilityOrdered By: Marvin Kong on 06-16-2024 Bacteria identified Cx Nom (Bld) NO GROWTH 5 DAYS [facility] Bacteria identified Cx Nom (Bld) NO GROWTH 5 DAYS [facility] - Microbiology an d Antimicrobial susceptibilityOrdered By: Vargas Reis on 06-16-2024 Bacteria identified Cx Nom (Bld) NO GROWTH 5 DAYS [facility] Lactate [Moles/volume] in Se rum or PlasmaOrdered By: Marvin Kong on 06-16-2024 Lactate [Moles/Vol] Lactate [Moles/volum e] in Serum or Plasma 0.5-2.2 [facility] Lactic Acidon 06-16-2024 Lactate [Moles/Vol] 1.0 mmol/L Normal 0.5-2.2 [facility] Comment on above: Result Comment: PERF ORMED BY: [facility] [address] [place] [address] PATHOLOGIST QUEEN'S COUNSEL ANDRE PERALTA M.D. Performed By: #### G LULS #### Point of Care testing , Monocyte distribution width [Entitic volume] in Blood by AutomatedOrdered By: Vargas Reis on 06-16-2024 Monocyte distribution width Auto (Bld) [Entitic vol] Monocyte distribution width [Entitic volume] in Blood by Automated High 0.00-20.00 [facility] Comment on above: For adults in ED, MD W > 20.0 may be associated with a higher risk of sepsis during the first 12 hrs of hospital admission Scan and CBCon 06-16-2024 Acanthocytes Slight Normal [facility] Comment on above: Performed By: #### G LULS #### Point of Care testing , Anisocytosis Ql (Bld) Marked Normal [facility] Comment on above: Performed By: #### G LULS #### Point of Care testing , Basophils (Bld) [#/Vol] 0.0 10*3/uL Normal 0.0-0.2 [facility] [facility] Comment on above: Result Comment: PERF ORMED BY: [facility] [address] [place] [address] PATHOLOGIST QUEEN'S COUNSEL ANDRE PERALTA M.D. Performed By: #### G LULS #### Point of Care testing , Basophils/100 WBC (Bld) 0.4 % Normal . [facility] Comment on above: Performed By: #### G LULS #### Point of Care testing , Crenated RBC Slight Normal [facility] Comment on above: Performed By: #### G LULS #### Point of Care testing , Eosinophils (Bld) [#/Vol] 0.1 10*3/uL Normal 0.0-0.45 [facility] Comment on above: Performed By: #### G LULS #### Point of Care testing , Eosinophils/100 WBC (Bld) 0.5 % Normal . [facility] Comment on above: Performed By: #### G LULS #### Point of Care testing , Erythrocyte distribution width (RBC) [Ratio] 20.2 % High 12.0-14.8 [facility] Comment on above: Performed By: #### G LULS #### Point of Care testing , Helmet Cells Slight Normal [facility] Comment on above: Performed By: #### G LULS #### Point of Care testing , Hematocrit (Bld) [Volume fraction] 36.1 % Low 38.8-50.0 [facility] Comment on above: Performed By: #### G LULS #### Point of Care testing , Hemoglobin (Bld) [Mass/Vol] 11.9 g/dL Low 13.0-17.0 [facility] Comment on above: Performed By: #### G LULS #### Point of Care testing , Hypochromasia Moderate Normal [facility] Comment on above: Performed By: #### G LULS #### Point of Care testing , Lymphocytes (Bld) [#/Vol] 2.3 10*3/uL Normal 1.00-4.8 [facility] Comment on above: Performed By: #### G LULS #### Point of Care testing , Lymphocytes/100 WBC (Bld) 22.7 % Normal . [facility] Comment on above: Performed By: #### G LULS #### Point of Care testing , Macrocytosis Slight Normal [facility] Comment on above: Performed By: #### G LULS #### Point of Care testing , MCH (RBC) [Entitic mass] 25.5 pg Low 27.5-35.2 [facility] Comment on above: Performed By: #### G LULS #### Point of Care testing , MCV (RBC) [Entitic vol] 77.4 fL Low 83.5-101 [facility] Comment on above: Performed By: #### G LULS #### Point of Care testing , Mean Corpuscular HGB Conc 33.0 g/dL Normal 32.5-35.6 [facility] Comment on above: Performed By: #### G LULS #### Point of Care testing , Microcytosis Slight Normal [facility] Comment on above: Performed By: #### G LULS #### Point of Care testing , Monocytes (Bld) [#/Vol] 1.2 10*3/uL High 0.0-0.8 [facility] Comment on above: Performed By: #### G LULS #### Point of Care testing , Monocytes/100 WBC (Bld) 21.77 % High 0.00-20.00 [facility] Comment on above: Result Comment: For adults in ED, MDW > 20.0 may be associated with a higher risk of sepsis during the first 12 hrs of hospital admission Performed By: #### G LULS #### Point of Care testing , Monocytes/100 WBC (Bld) 11.5 % Normal . [facility] Comment on above: Performed By: #### G LULS #### Point of Care testing , Neutrophils (Bld) [#/Vol] 6.5 10*3/uL Normal 1.8-7.7 [facility] Comment on above: Performed By: #### G LULS #### Point of Care testing , Neutrophils/100 WBC (Bld) 64.9 % Normal . [facility] Comment on above: Performed By: #### G LULS #### Point of Care testing , NRBC% 0.1 /100{WBC} Normal 0-0.5 [facility] Comment on above: Performed By: #### G LULS #### Point of Care testing , Platelet Estimate Normal Normal Normal [facility] Comment on above: Performed By: #### G LULS #### Point of Care testing , Platelet mean volume (Bld) [Entitic vol] 10.9 fL High 6.6-10.1 [facility] Comment on above: Performed By: #### G LULS #### Point of Care testing , Platelet Morphology Normal Normal Normal [facility] Comment on above: Result Comment: PERF ORMED BY: [facility] [place] [address] PATHOLOGIST QUEEN'S COUNSEL ANDRE PERALTA M.D. Performed By: #### G LULS #### Point of Care testing , Platelets (Bld) [#/Vol] 233 10*3/uL Normal 150-450 [facility] Comment on above: Performed By: #### G LULS #### Point of Care testing , Poikilocytosis Marked Normal [facility] Comment on above: Performed By: #### G LULS #### Point of Care testing , Polychromasia Moderate Normal [facility] Comment on above: Performed By: #### G LULS #### Point of Care testing , RBC (Bld) [#/Vol] 4.67 10*6/uL Normal 3.90-5.60 [facility] Comment on above: Performed By: #### G LULS #### Point of Care testing , Schistocytes Moderate Normal [facility] Comment on above: Performed By: #### G LULS #### Point of Care testing , Target Cells Moderate Normal [facility] Comment on above: Performed By: #### G LULS #### Point of Care testing , WBC (Bld) [#/Vol] 10.1 10*3/uL Normal 4.1-10.5 [facility] Comment on above: Performed By: #### G LULS #### Point of Care testing , Superficial Wound Cultureon 06-16-2024 Superficial Wound Culture ORGANISM: Staphylococcus aureus (O:STAAUR) Quantity of Growth Moderate Growth Aerobic DORON Charge (PCMIC38) SUSCEPTIBILITY ORGANISM: O:STAAUR ANTIBIOTIC INTERPRETATION DORON Azithromycin S <2 Ceftaroline S <0.5 Ciprofloxacin S <1 Clindamycin S <0.25 Daptomycin S 1 Levofloxacin S <1 Linezolid S 2 Oxacillin S <0.25 Penicillin MARIANNE >2 Tetracycline S <4 Trimethoprim/Sulfamethoxa zole S <0.5 Vancomycin S 1 S = SUSCEPTIBLE I = INTERMEDIATE R = RESISTANT BLANK = DATA NOT AVAILABLE, OR DRUG NOT ADVISABLE OR TESTED R* = RESISTANCE DUE TO EXTENDED SPECTRUM BETA-LACTAMASES ESBL = EXTENDED SPECTRUM BETA-LACTAMASE TFG = THYMIDINE-DEPENDENT STRAIN MARIANNE = BETA-LACTAMASE POSITIVE IB = INDUCIBLE BETA-LACTAMASE. APPEARS IN PLACE OF 'S' WITH SPECIES KNOWN TO POSSESS INDUCIBLE BETA-LACTAMASES. POTENTIALLY THEY MAY BECOME RESISTANT TO ALL B-LACTAM DRUGS. PERFORMED BY: [facility] [place] [address] PATHOLOGIST QUEEN'S COUNSEL ANDRE PERALTA M.D. Normal [facility] Comment on above: Performed By: #### G LULS #### Point of Care testing , Basic Metabolic Panel 05-12 Anion gap [Moles/Vol] 11.5 mmol/L Normal 6.0-15.0 [facility] Comment on above: Performed By: #### G LULS #### Point of Care testing , Calcium [Mass/Vol] 8.6 mg/dL Normal 8.6-10.3 [facility] Comment on above: Performed By: #### G LULS #### Point of Care testing , Chloride [Moles/Vol] 103 mmol/L Normal 98-107 [facility] Comment on above: Performed By: #### G LULS #### Point of Care testing , CO2 [Moles/Vol] 27.5 mmol/L Normal 21.0-31.0 [facility] Comment on above: Performed By: #### G LULS #### Point of Care testing , Creatinine [Mass/Vol] 0.75 mg/dL Normal 0.70-1.30 [facility] Comment on above: Performed By: #### G LULS #### Point of Care testing , Creatinine Clr Calc Pharmacy 60.91 Normal [facility] Comment on above: Result Comment: PERF ORMED BY: [facility] [place] [address] PATHOLOGIST [employer]EN'S COUNSEL ANDRE PERALTA M.D. Performed By: #### G LULS #### Point of Care testing , GFR/1.73 sq M.predicted MDRD (S/P/Bld) [Vol rate/Area] mL/min/{1.73_m2} Normal [facility] Comment on above: Performed By: #### G LULS #### Point of Care testing , Glucose [Mass/Vol] 80 mg/dL Normal 70-100 [facility] Comment on above: Result Comment: Gray Glucose Reference Range is dependent on time and content of last meal. Glucose of more than 200 mg/dL in a nonstressed, ambulatory subject supports the diagnosis of Diabetes Mellitus. ADA recommended reference range Performed By: #### G LULS #### Point of Care testing , Potassium [Moles/Vol] 4.0 mmol/L Normal 3.5-5.1 [facility] Comment on above: Performed By: #### G LULS #### Point of Care testing , Sodium [Moles/Vol] 138 mmol/L Normal 136-145 [facility] Comment on above: Performed By: #### G LULS #### Point of Care testing , Urea nitrogen [Mass/Vol] 19 mg/dL Normal 7-25 [facility] Comment on above: Performed By: #### G LULS #### Point of Care testing , Calcium [Mass/volume] in Ser um or PlasmaOrdered By: Mikel Root on 05-25-2024 Calcium [Mass/Vol] Calcium [Mass/volume ] in Serum or Plasma 8.6-10.3 [facility] Carbon dioxide, total [Moles /volume] in Serum or PlasmaOrdered By: Mikel Root on 05-25-2024 CO2 [Moles/Vol] Carbon dioxide, tota l [Moles/volume] in Serum or Plasma 21.0-31.0 [facility] Chloride [Moles/volume] in S jihan or PlasmaOrdered By: Mikel Root on 05-25-2024 Chloride [Moles/Vol] Chloride [Moles/vol ume] in Serum or Plasma 98-107 [facility] Creatinine [Mass/volume] in Serum or PlasmaOrdered By: Mikel Root on 05-25-2024 Creatinine [Mass/Vol] Creatinine [Mass/v olume] in Serum or Plasma 0.70-1.30 [facility] Glucose Glucometer (BldC) [M ass/Vol]Ordered By: Mikel Root on 05-25-2024 Glucose [Mass/Vol] Capillary blood gluc ose measurement by glucometer (mass/volume) [facility] Comment on above: Random Glucose Refer ence Range is dependent on time and content of last meal. Glucose of more than 200 mg/dL in a nonstressed, ambulatory subject supports the diagnosis of Diabetes Mellitus. Glucose Poct Glucometerson 1 07-25-2023 Glucose [Mass/Vol] 87 mg/dL Normal [facility] Comment on above: Result Comment: Gray om Glucose Reference Range is dependent on time and content of last meal. Glucose of more than 200 mg/dL in a nonstressed, ambulatory subject supports the diagnosis of Diabetes Mellitus. PERFORMED BY: [facility] [address] [place] [address] PATHOLOGIST QUEEN'S COUNSEL ANDRE PERALTA M.D. Performed By: #### G LUMARYA #### Point of Care testing , Glucose [Mass/volume] in Ser um or PlasmaOrdered By: Mikel Root on 05-25-2024 Glucose [Mass/Vol] Glucose [Mass/volume ] in Serum or Plasma 70-100 [facility] Comment on above: ADA recommended refe rence rangeRandom Glucose Reference Range is dependent on time and content of last meal. Glucose of more than 200 mg/dL in a nonstressed, ambulatory subject supports the diagnosis of Diabetes Mellitus. No Panel InformationOrdered By: Mikel Root on 05-25-2024 Estimated GFR (CKD-EPI) > 60.0 mL/Min [facility] Creatinine Clearance (Chem 60.91 [facility] Potassium [Moles/volume] in Serum or PlasmaOrdered By: Mikel Root on 05-25-2024 Potassium [Moles/Vol] Potassium [Moles/v olume] in Serum or Plasma 3.5-5.1 [facility] Serum or plasma anion gap de terminationOrdered By: Mikel Root on 05-25-2024 Anion gap [Moles/Vol] Serum or plasma an ion gap determination 6.0-15.0 [facility] Sodium [Moles/volume] in Ser um or PlasmaOrdered By: Mikel Root on 05-25-2024 Sodium [Moles/Vol] Sodium [Moles/volume ] in Serum or Plasma 136-145 [facility] Urea nitrogen [Mass/volume] in Serum or PlasmaOrdered By: Mikel Root on 05-25-2024 Urea nitrogen [Mass/Vol] Urea nitrogen [Mass/volume] in Serum or Plasma 7-25 [facility] X-ray reportOrdered By: Thania Rosales on 05-25-2024 Study report [place] [address] XRay Report Signed Patient: Manolo Vickers MR#: [id number] : 1935 Acct:[id number] Age/Sex: 89 / M ADM Date: 4 Loc: Room: [address] [place] [address] Type: ADM IN Attending Dr: Abdulaziz Root MD Copies to: Abdulaziz Root M.D.~ Ordering Provider: Abdulaziz Root M.D. 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 The leads appear intact and in appropriate position. The lungs are hyperinflated. There is no focal parenchymal consolidation, effusion or pneumothorax. The cardiac, hilar and mediastinal silhouettes are stable. There is no vascular congestion. The visualized bony structures are osteopenic. There is mild endplate spurring. There is mild wedge deformity involving an upper thoracic vertebral body. XR/XR chest 2V* IMPRESSION: SATISFACTORY APPEARANCE OF PACEMAKER. OBSTRUCTIVE LUNG DISEASE. NO ACUTE PULMONARY FINDINGS. Impression dictated by: Sofia Rosales M.D.05/25/2024 8:13 AM Dictation Location: [facility]- Transcribed By: ERIBERTO 05/25/24812 Dictated By: Sofia Rosales MD 05/25/24809 Signed By: 05/25/24812 [facility] Work Phone: XR chest 2V*on 05-25-2024 XR chest 2V* [facility] [place] [address] [place] [address] XRay Report Signed Patient: Manolo Vickers MR#: [id number] : 1935 Acct:[id number] Age/Sex: 89 / M ADM Date: 05/24/24 Loc: Room: [address] [place] [address] Type: ADM IN Attending Dr: Abdulaziz Root MD Copies to: Abdulaziz Root M.D. Ordering Provider: Abdulaziz Root M.D. 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 The leads appear intact and in appropriate position. The lungs are hyperinflated. There is no focal parenchymal consolidation, effusion or pneumothorax. The cardiac, hilar and mediastinal silhouettes are stable. There is no vascular congestion. The visualized bony structures are osteopenic. There is mild endplate spurring. There is mild wedge deformity involving an upper thoracic vertebral body. XR/XR chest 2V* IMPRESSION: SATISFACTORY APPEARANCE OF PACEMAKER. OBSTRUCTIVE LUNG DISEASE. NO ACUTE PULMONARY FINDINGS. Impression dictated by: Sofia Rosales M.D.05/25/2024 8:13 AM Dictation Location: [place] [address] Transcribed By: [facility] 05/25/24812 Dictated By: Sofia Rosales MD 05/25/24809 Signed By: 05/25/24812 Normal [facility] Basic Metabolic Panelon 05-12 Anion gap [Moles/Vol] 11.9 mmol/L Normal 6.0-15.0 [facility] Comment on above: Performed By: #### B MP ####[address] [place] [address] [facility] Calcium [Mass/Vol] 8.8 mg/dL Normal 8.6-10.3 [facility] Comment on above: Performed By: #### B MP ####[address] [address] [facility] Chloride [Moles/Vol] 103 mmol/L Normal 98-107 [facility] Comment on above: Performed By: #### B MP ####[address] [address] [facility] CO2 [Moles/Vol] 27.0 mmol/L Normal 21.0-31.0 [facility] Comment on above: Performed By: #### B MP ####[address] [address] [facility] Creatinine [Mass/Vol] 0.82 mg/dL Normal 0.70-1.30 [facility] Comment on above: Performed By: #### B MP ####[address] [place] [address] [facility] Creatinine Clr Calc Pharmacy 61.04 Normal [facility] Comment on above: Result Comment: PERF ORMED BY: [facility] [address] [place] [address] PATHOLOGIST QUEEN'[employer] COUNSEL ANDRE PERALTA M.D. Performed By: #### B MP ####[place] [id number] [place] GFR/1.73 sq M.predicted MDRD (S/P/Bld) [Vol rate/Area] mL/min/{1.73_m2} Normal [facility] Comment on above: Performed By: #### B MP ####[address] [place] [id number] [facility] Glucose [Mass/Vol] 108 mg/dL High 70-100 [facility] Comment on above: Result Comment: Gray Glucose Reference Range is dependent on time and content of last meal. Glucose of more than 200 mg/dL in a nonstressed, ambulatory subject supports the diagnosis of Diabetes Mellitus. ADA recommended reference range Performed By: #### B MP ####[place] [id number] [facility] Potassium [Moles/Vol] 3.9 mmol/L Normal 3.5-5.1 [facility] Comment on above: Performed By: #### B MP ####[place] [id number] [facility] Sodium [Moles/Vol] 138 mmol/L Normal 136-145 [facility] Comment on above: Performed By: #### B MP ####[place] [id number] [facility] Urea nitrogen [Mass/Vol] 22 mg/dL Normal 7-25 [facility] Comment on above: Performed By: #### B MP ####[place] [id number] [facility] Coagulation Profileon 2023 aPTT Coag (Bld) [Time] 30.1 s Normal 25.1-36.5 [facility] Comment on above: Result Comment: A he matocrit value greater than 55% may lead to inaccurate results in coagulation testing. Patients having hematocrit values >55% require a special collection tube for coagulation studies. Please contact the laboratory at [phone] for redraw instructions. PERFORMED BY: [facility] [address] [place] [address] PATHOLOGIST QUEEN'S COUNSEL ANDRE PERALTA M.D. Performed By: #### P P ####[place] [address] [address] [place] [address] [facility] INR Coag (PPP) [Relative time] 1.1 {INR} Normal [facility] Comment on above: Result [...] - 4.5 Performed By: #### P P ####[address] [address] [facility] PT Coag (PPP) [Time] 12.9 s Normal 9.0-12.9 [facility] Comment on above: Result Comment: A he matocrit value greater than 55% may lead to inaccurate results in coagulation testing. Patients having hematocrit values >55% require a special collection tube for coagulation studies. Please contact the laboratory at [phone] for redraw instructions. Performed By: #### P P ####[address] [place] [address] [facility] Glucose Poct Glucometerson 07-24-2023 Glucose [Mass/Vol] 68 mg/dL Normal [facility] Comment on above: Result Comment: [facility] Glucose Reference Range is dependent on time and content of last meal. Glucose of more than 200 mg/dL in a nonstressed, ambulatory subject supports the diagnosis of Diabetes Mellitus. PERFORMED BY: [facility] [address] [place] [address] PATHOLOGIST QUEEN'S COUNSEL ANDRE PERALTA M.D. Performed By: #### G LULS #### Point of Care testing , Glucose [Mass/Vol] 87 mg/dL Normal [facility] Comment on above: Result Comment: Gray Glucose Reference Range is dependent on time and content of last meal. Glucose of more than 200 mg/dL in a nonstressed, ambulatory subject supports the diagnosis of Diabetes Mellitus. PERFORMED BY: [facility] [address] [place] [address] PATHOLOGIST QUEEN'S COUNSEL ANDRE PERALTA M.D. Performed By: #### G LULS #### Point of Care testing , Glucose [Mass/Vol] 100 mg/dL Normal [facility] Comment on above: Result Comment: Gray om Glucose Reference Range is dependent on time and content of last meal. Glucose of more than 200 mg/dL in a nonstressed, ambulatory subject supports the diagnosis of Diabetes Mellitus. PERFORMED BY: [address] [address] PATHOLOGIST QUEEN'S COUNSEL ANDRE PERALTA M.D. Performed By: #### G LULS #### Point of Care testing , Commemt1 Normal [facility] Comment on above: Result Comment: Glu2 : Result Not Confirmed PERFORMED BY: [address] [place] [address] PATHOLOGIST QUEEN'S COUNSEL ANDRE PERALTA M.D. Performed By: #### G LULS ####Point of Care testing, Glucose [Mass/Vol] 55 mg/dL Off scale low [facility] Comment on above: Result Comment: Gray om Glucose Reference Range is dependent on time and content of last meal. Glucose of more than 200 mg/dL in a nonstressed, ambulatory subject supports the diagnosis of Diabetes Mellitus. Performed By: #### G LULS ####Point of Care testing, INR in Platelet poor plasma by Coagulation assayOrdered By: Mikel Root on 05-24-2024 INR Coag (PPP) [Relative time] INR in Platelet poor plasma by Coagulation assay [facility] Comment on above: INR Therapeutic [...] with mechanical heart valves: 3 - 4.5 No Panel InformationOrdered By: Mikel Root on 05-24-2024 Bedside Glucose Comment See comment [facility] Comment on above: Glu2: Result Not Con firmed Prothrombin time (PT)Ordered By: Mikel Root on 05-24-2024 PT Coag (PPP) [Time] Prothrombin time (PT) 9.0- 12.9 [facility] Comment on above: A hematocrit value g reater than 55% may lead to inaccurate results in coagulation testing. Patients having hematocrit values >55% require a special collection tube for coagulation studies. Please contact the laboratory at [phone] for redraw instructions. aPTT in Platelet poor plasma by Coagulation assayOrdered By: Mikel Root on 05-24-2024 aPTT Coag (PPP) [Time] Activated partial thromboplastin time (aPTT) in platelet poor plasma by coagulation a 25.1-36.5 [facility] Comment on above: A hematocrit value g reater than 55% may lead to inaccurate results in coagulation testing. Patients having hematocrit values >55% require a special collection tube for coagulation studies. Please contact the laboratory at [phone] for redraw instructions. Acanthocytes [Presence] in B lood by Light microscopyOrdered By: Mikel Root on 05-16-2024 Acanthocytes LM Ql (Bld) Slight [facility] Acanthocytes LM Ql (Bld) Acanthocytes [Presence] in Blood by Light microscopy [facility] Anisocytosis LM Ql (Bld)Orde red By: Mikel Root on 05-16-2024 Anisocytosis Ql (Bld) Anisocytosis [Pres ence] in Blood by Light microscopy [facility] Anisocytosis [Presence] in B lood by Light microscopyOrdered By: Mikel Root on 05-16-2024 Anisocytosis Ql (Bld) Slight Normal [facility] Comment on above: Performed By: #### B MP, DIFF CBC ####[facility] [id number] [place] [address] [facility] Basic Metabolic Panelon 110 GFR/1.73 sq M.predicted MDRD (S/P/Bld) [Vol rate/Area] mL/min/{1.73_m2} Normal [facility] Comment on above: Performed By: #### B MP, DIFF CBC ####[address] [place] [address] [facility] Basophils Auto (Bld) [#/Vol] Ordered By: Mikel Root on 05-16-2024 Basophils (Bld) [#/Vol] N/A [facility] Basophils (Bld) [#/Vol] Automated basophil count [facility] Basophils/100 WBC Auto (Bld) Ordered By: Mikel Root on 05-16-2024 Basophils/100 WBC (Bld) N/A [facility] Basophils/100 WBC (Bld) Automated basophil % [facility] Basophils/100 WBC Manual cnt (Bld)Ordered By: Mikel Root on 05-16-2024 Basophils/100 WBC (Bld) Basophils/100 leukocytes in Blood by Manual count 0-2 [facility] Basophils/100 leukocytes in Blood by Manual countOrdered By: Mikel Root on 05-16-2024 Basophils/100 WBC (Bld) 1 % Normal 0-2 [facility] Comment on above: Performed By: #### B MP, DIFF CBC ####[address] [place] [address] [facility] Calcium [Mass/volume] in Ser um or PlasmaOrdered By: Mikel Roto on 05-16-2024 Calcium [Mass/Vol] 8.7 mg/dL Normal 8.6-10.3 [facility] Comment on above: Result Comment: PERF ORMED BY: [facility] [address] [place] [address] PATHOLOGIST QUEEN'S COUNSEL AIRAM MAST M.D. Performed By: #### B MP, DIFF CBC ####[id number] [place] [address] [facility] Calcium [Mass/Vol] Calcium [Mass/volume ] in Serum or Plasma 8.6-10.3 [facility] Carbon dioxide, total [Moles /volume] in Serum or PlasmaOrdered By: Mikel Root on 05-16-2024 CO2 [Moles/Vol] 26.6 mmol/L Normal 21.0-31.0 [facility] Comment on above: Performed By: #### B MP, DIFF CBC ####[address] CO2 [Moles/Vol] Carbon dioxide, tota l [Moles/volume] in Serum or Plasma 21.0-31.0 [facility] Chloride [Moles/volume] in S jihan or PlasmaOrdered By: Mikel Root on 05-16-2024 Chloride [Moles/Vol] 95 mmol/L Low 98-107 [facility] Comment on above: Performed By: #### B MP, DIFF CBC ####[address] Chloride [Moles/Vol] Chloride [Moles/vol ume] in Serum or Plasma Low 98-107 [facility] Creatinine [Mass/volume] in Serum or PlasmaOrdered By: Mikel Root on 05-16-2024 Creatinine [Mass/Vol] 1.06 mg/dL Normal 0.70-1.30 [facility] Comment on above: Performed By: #### B MP, DIFF CBC ####[address] Creatinine [Mass/Vol] Creatinine [Mass/v olume] in Serum or Plasma 0.70-1.30 [facility] Diff and CBCon 05-16-2024 Acanthocytes Slight Normal [facility] Comment on above: Performed By: #### B MP, DIFF CBC ####[address] Hypochromasia Marked Normal [facility] Comment on above: Performed By: #### B MP, DIFF CBC ####[address] Mean Corpuscular HGB Conc 32.2 g/dL Low 32.5-35.6 [facility] Comment on above: Performed By: #### B MP, DIFF CBC ####[address] [address] [facility] Microcytosis Slight Normal [facility] Comment on above: Performed By: #### B MP, DIFF CBC ####[address] [address] [facility] Platelet Estimate Normal Normal Normal [facility] Comment on above: Performed By: #### B MP, DIFF CBC ####[address] [address] [facility] Platelet Morphology Normal Normal Normal [facility] Comment on above: Result Comment: PERF ORMED BY: [facility] [address] [place] [address] PATHOLOGIST [employer] AIRAM MAST M.D. Performed By: #### B MP, DIFF CBC ####[address] [address] [facility] Poikilocytosis Moderate Normal [facility] Comment on above: Performed By: #### B MP, DIFF CBC ####[address] [address] [facility] Polychromasia Slight Normal [facility] Comment on above: Performed By: #### B MP, DIFF CBC ####[address] [id number] [facility] Schistocytes Slight Normal [facility] Comment on above: Performed By: #### B MP, DIFF CBC ####[address] [address] [facility] Target Cells Slight Normal [facility] Comment on above: Performed By: #### B MP, DIFF CBC ####[id number] [facility] ECG 12 lead ECGon 05-16-2024 ECG 12 lead ECG [facility] [address] [place] [address] [place] [address] Electrocardiograph Report Signed Patient: Manolo Vickers MR#: [id number] 353 : 1935 Acct:[id number] Age/Sex: 89 / M ADM Date: 05/16/24 Loc: PS Room: Type: [facility] Attending Dr: Abdulaziz Root MD Ordering Provider: Abdulaziz Root M.D. Date of Service: 05/16/2412/03/1211 ECG/ECG 12 lead ECG: pst Copies to: Test Reason : Blood Pressure : */* mmHG Vent. Rate : 54 BPM Atrial Rate : 54 BPM P-R Int : 194 ms QRS Dur : 98 ms QT Int : 506 ms P-R-T Axes : 72 -38 203 degrees QTcB Int : 479 ms Sinus bradycardia Left axis deviation Left ventricular hypertrophy with repolarization abnormality ( [place] product ) Septal infarct , age undetermined Abnormal ECG When compared with ECG of 15-Feb-2024 10:02, Significant changes have occurred Confirmed by CONRAD OGLESBY [facility], [place] ([id number]) on 05/16/2024 2:20:20 PM Referred By: Electronically Signed By: HARSH MARTINES MD FACC Transcribed By: MUS Signed By Harsh Martines MD, FACC 05/16/24 1420 Normal [facility] Eosinophils Auto (Bld) [#/Vo l]Ordered By: Mikel Root on 05-16-2024 Eosinophils (Bld) [#/Vol] N/A [facility] Eosinophils (Bld) [#/Vol] Automated eosinophil count [facility] Eosinophils/100 WBC Auto (Bl d)Ordered By: Mikel Root on 05-16-2024 Eosinophils/100 WBC (Bld) N/A [facility] Eosinophils/100 WBC (Bld) Automated eosinophil % [facility] Eosinophils/100 WBC Manual c nt (Bld)Ordered By: Mikel Root on 05-16-2024 Eosinophils/100 WBC (Bld) Eosinophils/100 leukocytes in Blood by Manual count 1-3 [facility] Eosinophils/100 leukocytes i n Blood by Manual countOrdered By: Mikel Root on 05-16-2024 Eosinophils/100 WBC (Bld) 2 % Normal 1-3 [facility] Comment on above: Performed By: #### B MP, DIFF CBC ####[address] [place] [id number] [facility] Erythrocyte distribution wid th Auto (RBC) [Ratio]Ordered By: Mikel Root on 05-16-2024 Erythrocyte distribution width (RBC) [Ratio] Erythrocyte distribution width [Ratio] by Automated count High 12.0-14.8 [facility] Erythrocyte distribution wid th [Ratio] by Automated countOrdered By: Mikel Root on 05-16-2024 Erythrocyte distribution width (RBC) [Ratio] 21.2 % High 12.0-14.8 [facility] Comment on above: Performed By: #### B MP, DIFF CBC ####[facility] [id number] [place] [id number] [facility] Erythrocyte morphology findi ng [Identifier] in BloodOrdered By: Mikel Root on 05-16-2024 RBC morphology finding Nom (Bld) RBC morphology [facility] Erythrocytes [#/volume] in B lood by Automated countOrdered By: Mikel Root on 05-16-2024 RBC (Bld) [#/Vol] 4.81 10*6/uL Normal 3.90-5.60 [facility] Comment on above: Performed By: #### B MP, DIFF CBC ####[place] [address] [id number] [facility] Glucose [Mass/volume] in Ser um or PlasmaOrdered By: Mikel Root on 05-16-2024 Glucose [Mass/Vol] 649 mg/dL Off scale high 70-100 [facility] Comment on above: Critical Result Call ed to and read back by: DREW BUITRAGO at: 05/16/2024 13:51 by:NOEL recommended reference rangeRandom Glucose Reference Range is dependent on time and content of last meal. Glucose of more than 200 mg/dL in a nonstressed, ambulatory subject supports the diagnosis of Diabetes Mellitus. Result Comment: Crit ical Result Called to and read back by: DREW BUITRAGO at: 05/16/2024 13:51 by:TANIA Random Glucose Reference Range is dependent on time and content of last meal. Glucose of more than 200 mg/dL in a nonstressed, ambulatory subject supports the diagnosis of Diabetes Mellitus. ADA recommended reference range Performed By: #### B MP, DIFF CBC ####[address] [id number] [facility] Glucose [Mass/Vol] Glucose [Mass/volume ] in Serum or Plasma Critically high 70-100 [facility] Comment on above: Critical Result Call ed to and read back by: DREW BUITRAGO at: 05/16/2024 13:51 by:TANIAADA recommended reference rangeRandom Glucose Reference Range is dependent on time and content of last meal. Glucose of more than 200 mg/dL in a nonstressed, ambulatory subject supports the diagnosis of Diabetes Mellitus. Hematocrit Auto (Bld) [Volum e fraction]Ordered By: Mikel Root on 05-16-2024 Hematocrit (Bld) [Volume fraction] Hematocrit [Volume Fraction] of Blood by Automated count Low 38.8-50.0 [facility] Hematocrit [Volume Fraction] of Blood by Automated countOrdered By: Mikel Root on 05-16-2024 Hematocrit (Bld) [Volume fraction] 38.1 % Low 38.8-50.0 [facility] Comment on above: Performed By: #### B MP, DIFF CBC ####[id number] [facility] Hemoglobin [Mass/volume] in BloodOrdered By: Mikel Root on 05-16-2024 Hemoglobin (Bld) [Mass/Vol] 12.3 g/dL Low 13.0-17.0 [facility] Comment on above: Performed By: #### B MP, DIFF CBC ####[address] [place] [address] [place] Hemoglobin (Bld) [Mass/Vol] Hemoglobin [Mass/volume] in Blood Low 13.0-17.0 [facility] Hypochromia LM Ql (Bld)Order ed By: Mikel Root on 05-16-2024 Hypochromia Ql (Bld) Marked [facility] Hypochromia Ql (Bld) Hypochromia [Presen ce] in Blood by Light microscopy [facility] Leukocytes [#/volume] correc robert for nucleated erythrocytes in Blood by Automated counOrdered By: Mikel Root on 05-16-2024 WBC corrected for nucl RBC Auto (Bld) [#/Vol] 5.0 10*3/uL 4.1-10.5 [facility] WBC corrected for nucl RBC Auto (Bld) [#/Vol] Leukocytes [#/volume] corrected for nucleated erythrocytes in Blood by Automated coun 4.1-10.5 [facility] Leukocytes [#/volume] in Blo od by Automated countOrdered By: Mikel Root on 05-16-2024 WBC (Bld) [#/Vol] 5.0 10*3/uL Normal 4.1-10.5 [facility] Comment on above: Performed By: #### B MP, DIFF CBC ####[facility] [id number] [place] [address] [facility] Lymphocytes Auto (Bld) [#/Vo l]Ordered By: Mikel Root on 05-16-2024 Lymphocytes (Bld) [#/Vol] N/A [facility] Lymphocytes (Bld) [#/Vol] Lymphocytes [#/volume] in Blood by Automated count [facility] Lymphocytes/100 WBC Auto (Bl d)Ordered By: Mikel Root on 05-16-2024 Lymphocytes/100 WBC (Bld) N/A [facility] Lymphocytes/100 WBC (Bld) Lymphocytes/100 leukocytes in Blood by Automated count [facility] Lymphocytes/100 WBC Manual c nt (Bld)Ordered By: Mikel Root on 05-16-2024 Lymphocytes/100 WBC (Bld) Lymphocytes/100 leukocytes in Blood by Manual count 18-42 [facility] Lymphocytes/100 leukocytes i n Blood by Manual countOrdered By: Mikel Root on 05-16-2024 Lymphocytes/100 WBC (Bld) 23 % Normal 18-42 [facility] Comment on above: Performed By: #### B MP, DIFF CBC ####[facility] [id number] MCH Auto (RBC) [Entitic mass ]Ordered By: Mikel Root on 05-16-2024 MCH (RBC) [Entitic mass] MCH [Entitic mass] by Automated count Low 27.5-35.2 [facility] MCH [Entitic mass] by Automa robert countOrdered By: Mikel Root on 05-16-2024 MCH (RBC) [Entitic mass] 25.5 pg Low 27.5-35.2 [facility] Comment on above: Performed By: #### B MP, DIFF CBC ####[address] MCHC Auto (RBC) [Mass/Vol]Or dered By: Mikel Root on 05-16-2024 MCHC (RBC) [Mass/Vol] 32.2 g/dL Low 32.5-35.6 [facility] MCHC (RBC) [Mass/Vol] MCHC [Mass/volume] by Automated count Low 32.5-35.6 [facility] MCV Auto (RBC) [Entitic vol] Ordered By: Mikel Root on 05-16-2024 MCV (RBC) [Entitic vol] MCV [Entitic volume] by Automated count Low 83.5-101 [facility] MCV [Entitic volume] by Auto mated countOrdered By: Mikel Root on 05-16-2024 MCV (RBC) [Entitic vol] 79.2 fL Low 83.5-101 [facility] Comment on above: Performed By: #### B MP, DIFF CBC ####[facility] [id number] Manual blood segmented neutr ophils/100 leukocytesOrdered By: Mikel Root on 05-16-2024 Segmented neutrophils/100 WBC (Bld) 67 % Normal 50-70 [facility] Comment on above: Performed By: #### B MP, DIFF CBC ####[facility] [id number] [place] [id number] [facility] Microcytes LM Ql (Bld)Ordere d By: Mikel Root on 05-16-2024 Microcytes Ql (Bld) Slight [facility] Microcytes Ql (Bld) Microcytes [Presence ] in Blood by Light microscopy [facility] Monocytes Auto (Bld) [#/Vol] Ordered By: Mikel Root on 05-16-2024 Monocytes (Bld) [#/Vol] N/A [facility] Monocytes (Bld) [#/Vol] Automated blood monocyte count [facility] Monocytes/100 WBC Auto (Bld) Ordered By: Mikel Root on 05-16-2024 Monocytes/100 WBC (Bld) N/A [facility] Monocytes/100 WBC (Bld) Automated monocyte % [facility] Monocytes/100 WBC Manual cnt (Bld)Ordered By: Mikel Root on 05-16-2024 Monocytes/100 WBC (Bld) Monocytes/100 leukocytes in Blood by Manual count 08-22 [facility] Monocytes/100 leukocytes in Blood by Manual countOrdered By: Mikel Root on 05-16-2024 Monocytes/100 WBC (Bld) 8 % Normal 08-22 [facility] Comment on above: Performed By: #### B MP, DIFF CBC ####[facility] [id number] [place] [id number] [place] Neutrophils Auto (Bld) [#/Vo l]Ordered By: Mikel Root on 05-16-2024 Neutrophils (Bld) [#/Vol] N/A [facility] Neutrophils (Bld) [#/Vol] Neutrophils [#/volume] in Blood by Automated count [facility] Neutrophils/100 WBC Auto (Bl d)Ordered By: Mikel Root on 05-16-2024 Neutrophils/100 WBC (Bld) N/A [facility] Neutrophils/100 WBC (Bld) Automated neutrophil % [facility] No Panel InformationOrdered By: Mikel Root on 05-16-2024 Estimated GFR (CKD-EPI) > 60.0 mL/Min [facility] Creatinine Clearance (Chem N/A [facility] Nucleated erythrocytes [Pres ence] in Blood by Automated countOrdered By: Mikel Root on 05-16-2024 Nucleated RBC Auto Ql (Bld) N/A [facility] Nucleated RBC Auto Ql (Bld) Nucleated erythrocytes [Presence] in Blood by Automated count [facility] Platelet adequacy [Presence] in Blood by Light microscopyOrdered By: Mikel Root on 05-16-2024 Platelets LM Ql (Bld) Normal Normal [facility] Platelets LM Ql (Bld) Platelet adequacy [Presence] in Blood by Light microscopy Normal [facility] Platelet mean volume Auto (B ld) [Entitic vol]Ordered By: Mikel Root on 05-16-2024 Platelet mean volume (Bld) [Entitic vol] Platelet mean volume [Entitic volume] in Blood by Automated count High 6.6-10.1 [facility] Platelet mean volume [Entiti c volume] in Blood by Automated countOrdered By: Mikel Root on 05-16-2024 Platelet mean volume (Bld) [Entitic vol] 11.3 fL High 6.6-10.1 [facility] Comment on above: Result Comment: PERF ORMED BY: [facility] [address] [place] [address] PATHOLOGIST [employer] AIRAM MAST M.D. Performed By: #### B MP, DIFF CBC ####[facility] [id number] [place] [address] [facility] Platelet morphology finding [Identifier] in BloodOrdered By: Mikel Root on 05-16-2024 Platelet morphology finding Nom (Bld) Normal Normal [facility] Platelet morphology finding Nom (Bld) Platelet morphology finding [Identifier] in Blood Normal [facility] Platelets Auto (Bld) [#/Vol] Ordered By: Mikel Root on 05-16-2024 Platelets (Bld) [#/Vol] Platelets [#/volume] in Blood by Automated count 150-450 [facility] Platelets [#/volume] in Bloo d by Automated countOrdered By: Mikel Root on 05-16-2024 Platelets (Bld) [#/Vol] 249 10*3/uL Normal 150-450 [facility] Comment on above: Performed By: #### B MP, DIFF CBC ####[facility] [id number] Poikilocytosis [Presence] in Blood by Light microscopyOrdered By: Mikel Root on 05-16-2024 Poikilocytosis LM Ql (Bld) Moderate [facility] Poikilocytosis LM Ql (Bld) Poikilocytosis [Presence] in Blood by Light microscopy [facility] Polychromasia [Presence] in Blood by Light microscopyOrdered By: Mikel Root on 05-16-2024 Polychromasia LM Ql (Bld) Slight [facility] Polychromasia LM Ql (Bld) Polychromasia [Presence] in Blood by Light microscopy [facility] Potassium [Moles/volume] in Serum or PlasmaOrdered By: Mikel Root on 05-16-2024 Potassium [Moles/Vol] 5.4 mmol/L High 3.5-5.1 [facility] Comment on above: Performed By: #### B MP, DIFF CBC ####[facility] [id number] [place] [address] [facility] Potassium [Moles/Vol] Potassium [Moles/v olume] in Serum or Plasma High 3.5-5.1 [facility] RBC Auto (Bld) [#/Vol]Ordere d By: Mikel Root on 05-16-2024 RBC (Bld) [#/Vol] Erythrocytes [#/volu me] in Blood by Automated count 3.90-5.60 [facility] RBC morphologyOrdered By: Asher Root on 05-16-2024 RBC morphology finding Nom (Bld) N/A [facility] Schistocytes [Presence] in B lood by Light microscopyOrdered By: Mikel Root on 05-16-2024 Schistocytes LM Ql (Bld) Slight [facility] Schistocytes LM Ql (Bld) Schistocytes [Presence] in Blood by Light microscopy [facility] Segmented neutrophils/100 WB C Manual cnt (Bld)Ordered By: Mikel Root on 05-16-2024 Segmented neutrophils/100 WBC (Bld) Manual blood segmented neutrophils/100 leukocytes 50-70 [facility] Serum or plasma anion gap de terminationOrdered By: Mikel Root on 05-16-2024 Anion gap [Moles/Vol] 11.8 mmol/L Normal 6.0-15.0 [facility] Comment on above: Performed By: #### B MP, DIFF CBC ####[facility] [id number] Anion gap [Moles/Vol] Serum or plasma an ion gap determination 6.0-15.0 [facility] Sodium [Moles/volume] in Ser um or PlasmaOrdered By: Mikel Root on 05-16-2024 Sodium [Moles/Vol] 128 mmol/L Low 136-145 [facility] Comment on above: Performed By: #### B MP, DIFF CBC ####[facility] [id number] Sodium [Moles/Vol] Sodium [Moles/volume ] in Serum or Plasma Low 136-145 [facility] Target cellsOrdered By: Mikel Root on 05-16-2024 Target cells LM Ql (Bld) Slight [facility] Target cells [Presence] in B lood by Light microscopyOrdered By: Mikel Root on 05-16-2024 Target cells LM Ql (Bld) Target cells [facility] Urea nitrogen [Mass/volume] in Serum or PlasmaOrdered By: Mikel Root on 05-16-2024 Urea nitrogen [Mass/Vol] 21 mg/dL Normal 02-02 [facility] Comment on above: Performed By: #### B MP, DIFF CBC ####[facility] [id number] Urea nitrogen [Mass/Vol] Urea nitrogen [Mass/volume] in Serum or Plasma 02-02 [facility] WBC Auto (Bld) [#/Vol]Ordere d By: Mikel Root on 05-16-2024 WBC (Bld) [#/Vol] Leukocytes [#/volume ] in Blood by Automated count 4.1-10.5 [facility] 36on 05-04-[address] Chirag Merritt's recommendation for an EGD was not only to test for H. pylori but also to assess the patient's history of peptic ulcer disease. The EGD is a safe procedure, and we are taking every precaution to avoid complications, as you mentioned. However, if the primary care physician or the patient is not inclined to proceed with the endoscopic evaluation recommended by the GI team, an alternative would be to test for H. pylori using a stool antigen test. Please note, this would only address the H. pylori workup and not provide an evaluation of the peptic ulcer disease as initially recommended. Best regards, Dr. Solomon Vasques [facility] 36on 04-26-[address] Jesus Alberto Castro's office (Internal Medicine) called to make sure that a message had been received to Dr. Beard regarding this patient and concerns Dr. Castro has regarding the patient having an EGD to confirm resolution of H. Pylori. This continuity writer could not find any message in chart or in workers' compensation mediator, so this message was created. The following is his note regarding this from the last OV on 04/17/24 (under his plan) please review: 2. Peptic Ulcer Disease. He has a history of peptic ulcer disease with a recent EGD finding of an ulcer at the anastomosis from prior surgery. He is currently on Prilosec. Sucralfate (Carafate) will be discontinued due to its potential to bind other medications and make them ineffective. A repeat EGD will be scheduled to follow up on the ulcer and possibly perform a biopsy to confirm the resolution of H. pylori. A note will be sent to the structural rigger to discuss the possibility of using a stool study instead of a biopsy to avoid disturbing the scarred area. Please advise and respond to Dr. Castro through this telephone call note or via a letter, as to what Dr. Beard's recommendation is regarding the above inquiry. Thank you. [facility] Telephoneon 04-26-2024 Telephone [id number] Ifeanyi Vickers 1935 [facility] Provider Department Center 04/26/2024 TIM KEE [facility] No family history on file [facility] HbA1c (Bld) [Mass fraction]o n 04-17-2024 [facility] Laboratory - Hematology and Cell countson 04-17-2024 HbA1c (Bld) [Mass fraction] 9.8 % [facility] Healthcare Office Visiton 04-05-2024 Follow-up visit [id number] Ifeanyi Vickers 1935 [facility] Provider Department Center 04/05/2024 PATRICK SPIVEY MP [facility] Medical [facility] No family history on file Level of Service:[id number] [place] OFFICE/OUTPATIENT NEW LOW MDM 30 MINUTES (GC) Reason for Visit and Comments: gastrointestinal ulcer [Other] - Pt says he's supposed to receive a procedure. [facility] E[facility] echo transthoracicon [facility] echo transthoracic [facility] [address] [place] [id number] Echocardiogram Signed Patient: Manolo Vickers MR#: [id number] 353 : 1935 Acct:[id number] Age/Sex: 88 / M ADM Date: 03/09/24 Loc: Room: Type: [facility] Attending Dr: Anat Perez MD Ordering Provider: Anat Perez MD Date of Service: 03/09/24 [facility] echo transthoracic: I25.10 - Atherosclerotic heart disease of [place] coronary... Copies to: Anat Perez MD Manolo VELASQUEZ Patient Location: : 1935 Gender: Male (MM/DD/YYYY) Age: 88 Years Ordering Physician: Anat Perez Height: 70 in Weight: 140.875 lb Performed By: MARK Hearn BSA: 1.80 m2 BP: 144 / 83 mmHg HR: 53 bpm Reason For Study: I25.10 - Atherosclerotic heart disease of [place] coronary... History: HTN, DM, Former Smoker, CAD, Stents, Life Vest, Cardiomyopathy + -+ Interpretation Summary Ejection Fraction = 25-30%. There is anteroseptal and apical wall akinesis. Mild concentric left ventricular hypertrophy. There is moderate mitral regurgitation. 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 The left atrium appears severely dilated. There is mild tricuspid regurgitation. No left ventricular thrombus or mass is seen. Right ventricular systolic pressure is elevated at 50-60mmHg. Compared to the previous ECHO, LVEF has decreased. Procedure/Quality: A two-dimensional transthoracic echocardiogram with color flow, Doppler and injection of contrast agent Definity was performed. The study was technically good in quality. Left Ventricle: The left ventricular size is normal. Mild concentric left ventricular hypertrophy. Ejection Fraction = 25-30%. There is anteroseptal and apical wall akinesis. No left ventricular thrombus or mass is seen. Left Atrium: The left atrium appears severely dilated. Right Atrium: The right atrium appears normal in size. Right Ventricle: The right ventricle is normal in size and function. Aortic Valve: The aortic valve is trileaflet. The aortic valve is moderately sclerotic. No hemodynamically significant valvular aortic stenosis. No aortic regurgitation is present. Mitral Valve: The mitral valve is normal in structure. No significant mitral valve stenosis. There is moderate mitral regurgitation. 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 Tricuspid Valve: The tricuspid valve is normal in structure. There is mild tricuspid regurgitation. Right ventricular systolic pressure is elevated at 50-60mmHg. Pulmonic Valve: The pulmonic valve is not well visualized. No significant pulmonic regurgitation. Arteries: The aortic root is normal size. Pericardium/Pleura: No pericardial effusion seen. There is no pleural effusion. IVC/Hepatic Veins: The inferior vena cava is normal in size, with a normal collapsibility index. MMode/2D Measurements Calculations IVSd (0.7-1.1 cm): 1.31 cm LVIDd (3.7-5.4 cm): 5.3 cm LVPWd (0.7-1.1 cm): 1.21 cm LVIDs (2.3-3.6 cm): 4.5 cm LA dimension (2.3-4.0 cm): 4.5 Ao root diam (2.0-3.2 cm): 3.5 cm cm FS: 16.7 % Ao root area: 9.4 cm2 EDV(Teich): 138.2 ml LVOT diam: 2.18 cm ESV(Teich): 90.2 ml LVOT area: 3.7 cm2 EF(Teich): 34.7 % LAV(MOD-sp2): 108.0 ml LAV(MOD-sp4): 83.9 ml LA A2 area: 27.9 cm2 LA A4 area: 26.2 cm2 LA length (vol): 6.5 cm LA vol: 95.2 ml LA vol index: 52.9 ml/m2 Doppler Measurements Calculations MV E max jon: 97.3 cm/sec Ao V2 max: 146.3 cm/sec MV A max jon: 90.0 cm/sec Ao max P.6 mmHg MR max jon: 481.7 cm/sec Ao mean P.9 mmHg MV V2 VTI: 30.3 cm Ao V2 mean: 92.1 cm/sec MV P1/2t: 55.8 msec Ao V2 VTI: 35.0 cm MV dec time: 0.25 sec JUNE(I,D): 2.7 cm2 MV dec slope: 574.6 cm/sec?? JUNE(V,D): 2.6 cm2 E/E' lat: 11.0 E/E' med: 15.6 TV max P.0 mmHg LV V1 max: 100.7 cm/sec TR max jon: 375.5 cm/sec LV V1 max P.1 mmHg TR max P.4 mmHg LV V1 mean: 64.5 cm/sec RAP systole: 5.0 mmHg LV V1 mean P.95 mmHg LV V1 VTI: 25.0 cm + + + + + --+ + : Electronically : : : : signed by: Anat : : Ana : : : : on: 03/09/2024, : : : : 11:53 PM : + --+ + Transcribed By: SCV Performed At: 03/09/24 1444 Signed By: Anat Perez MD 03/09/24 2353 Normal [facility] Erythrocyte distribution wid th Auto (RBC) [Ratio]Ordered By: Warren Gross on 02-16-2024 Erythrocyte distribution width (RBC) [Ratio] 20.0 % High 12.0-14.8 [facility] Ferritin [Mass/volume] in Se rum or PlasmaOrdered By: Anat Perez on 02-16-2024 Ferritin [Mass/Vol] 19.8 ng/mL Low 23.9-336.2 [facility] Hematocrit Auto (Bld) [Volum e fraction]Ordered By: Warren Gross on 02-16-2024 Hematocrit (Bld) [Volume fraction] 26.7 % Low 38.8-50.0 [facility] Hemoglobin [Mass/volume] in BloodOrdered By: Warren Gross on 02-16-2024 Hemoglobin (Bld) [Mass/Vol] 8.8 g/dL Low 13.0-17.0 [facility] Iron [Mass/volume] in Serum or PlasmaOrdered By: Anat Perez on 02-16-2024 Iron [Mass/Vol] 20 ug/dL Low 50-212 [facility] Iron binding capacity [Mass/ volume] in Serum or PlasmaOrdered By: Anat Perez on 02-16-2024 Iron binding capacity [Mass/Vol] 402 ug/dL 255-450 [facility] Iron saturation [Mass Fracti on] in Serum or PlasmaOrdered By: Anat Perez on 02-16-2024 Iron saturation [Mass fraction] 5.0 % Low 20-50 [facility] Leukocytes [#/volume] correc robert for nucleated erythrocytes in Blood by Automated counOrdered By: Warren Gross on 02-16-2024 WBC corrected for nucl RBC Auto (Bld) [#/Vol] 5.8 10*3/uL 4.1-10.5 [facility] MCH Auto (RBC) [Entitic mass ]Ordered By: Warren Gross on 02-16-2024 MCH (RBC) [Entitic mass] 26.8 pg Low 27.5-35.2 [facility] MCHC Auto (RBC) [Mass/Vol]Or dered By: Warren Gross on 02-16-2024 MCHC (RBC) [Mass/Vol] 32.9 g/dL 32.5-35.6 [facility] MCV Auto (RBC) [Entitic vol] Ordered By: Warren Gross on 02-16-2024 MCV (RBC) [Entitic vol] 81.4 fL Low 83.5-101 [facility] Platelet mean volume Auto (B ld) [Entitic vol]Ordered By: Warren Gross on 02-16-2024 Platelet mean volume (Bld) [Entitic vol] 10.3 fL High 6.6-10.1 [facility] Platelets Auto (Bld) [#/Vol] Ordered By: Warren Gross on 02-16-2024 Platelets (Bld) [#/Vol] 304 10*3/uL 150-450 [facility] RBC Auto (Bld) [#/Vol]Ordere d By: Warren Gross on 02-16-2024 RBC (Bld) [#/Vol] 3.28 10*6/uL Low 3.90-5.60 [facility] Transferrin [Mass/volume] in Serum or PlasmaOrdered By: Anat Perez on 02-16-2024 Transferrin [Mass/Vol] 287 mg/dL 203-362 [facility] Erythrocyte distribution wid th Auto (RBC) [Ratio]Ordered By: Warren Gross on 02-14-2024 Erythrocyte distribution width (RBC) [Ratio] 19.9 % High 12.0-14.8 [facility] Hematocrit Auto (Bld) [Volum e fraction]Ordered By: Warren Gross on 02-14-2024 Hematocrit (Bld) [Volume fraction] 26.4 % Low 38.8-50.0 [facility] Hemoglobin [Mass/volume] in BloodOrdered By: Warren Gross on 02-14-2024 Hemoglobin (Bld) [Mass/Vol] 8.7 g/dL Low 13.0-17.0 [facility] Leukocytes [#/volume] correc robert for nucleated erythrocytes in Blood by Automated counOrdered By: Warren Gross on 02-14-2024 WBC corrected for nucl RBC Auto (Bld) [#/Vol] 7.1 10*3/uL 4.1-10.5 [facility] MCH Auto (RBC) [Entitic mass ]Ordered By: Warren Gross on 02-14-2024 MCH (RBC) [Entitic mass] 26.8 pg Low 27.5-35.2 [facility] MCHC Auto (RBC) [Mass/Vol]Or dered By: Warren Gross on 02-14-2024 MCHC (RBC) [Mass/Vol] 32.9 g/dL 32.5-35.6 [facility] MCV Auto (RBC) [Entitic vol] Ordered By: Warren Gross on 02-14-2024 MCV (RBC) [Entitic vol] 81.6 fL Low 83.5-101 [facility] Platelet mean volume Auto (B ld) [Entitic vol]Ordered By: Warren Gross on 02-14-2024 Platelet mean volume (Bld) [Entitic vol] 9.6 fL 6.6-10.1 [facility] Platelets Auto (Bld) [#/Vol] Ordered By: Warren Gross on 02-14-2024 Platelets (Bld) [#/Vol] 278 10*3/uL 150-450 [facility] RBC Auto (Bld) [#/Vol]Ordere d By: Warren Gross on 02-14-2024 RBC (Bld) [#/Vol] 3.23 10*6/uL Low 3.90-5.60 [facility] Erythrocyte distribution wid th Auto (RBC) [Ratio]Ordered By: Warren Gross on 02-11-2024 Erythrocyte distribution width (RBC) [Ratio] 20.4 % High 12.0-14.8 [facility] Hematocrit Auto (Bld) [Volum e fraction]Ordered By: Warren Gross on 02-11-2024 Hematocrit (Bld) [Volume fraction] 26.8 % Low 38.8-50.0 [facility] Hemoglobin [Mass/volume] in BloodOrdered By: Warren Gross on 02-11-2024 Hemoglobin (Bld) [Mass/Vol] 8.8 g/dL Low 13.0-17.0 [facility] Leukocytes [#/volume] correc robert for nucleated erythrocytes in Blood by Automated counOrdered By: Warren Gross on 02-11-2024 WBC corrected for nucl RBC Auto (Bld) [#/Vol] 6.4 10*3/uL 4.1-10.5 [facility] MCH Auto (RBC) [Entitic mass ]Ordered By: Warren Gross on 02-11-2024 MCH (RBC) [Entitic mass] 26.8 pg Low 27.5-35.2 [facility] MCHC Auto (RBC) [Mass/Vol]Or dered By: Warren Gross on 02-11-2024 MCHC (RBC) [Mass/Vol] 32.8 g/dL 32.5-35.6 [facility] MCV Auto (RBC) [Entitic vol] Ordered By: Warren Gross on 02-11-2024 MCV (RBC) [Entitic vol] 81.9 fL Low 83.5-101 [facility] Platelet mean volume Auto (B ld) [Entitic vol]Ordered By: Warren Gross on 02-11-2024 Platelet mean volume (Bld) [Entitic vol] 10.2 fL High 6.6-10.1 [facility] Platelets Auto (Bld) [#/Vol] Ordered By: Warren Gross on 02-11-2024 Platelets (Bld) [#/Vol] 228 10*3/uL 150-450 [facility] RBC Auto (Bld) [#/Vol]Ordere d By: Warren Gross on 02-11-2024 RBC (Bld) [#/Vol] 3.27 10*6/uL Low 3.90-5.60 [facility] Basophils Auto (Bld) [#/Vol] Ordered By: Sushant Cordon on 02-08-2024 Basophils (Bld) [#/Vol] 0.1 10*3/uL 0.0-0.2 [facility] Basophils/100 WBC Auto (Bld) Ordered By: Sushant Cordon on 02-08-2024 Basophils/100 WBC (Bld) 1.3 % . [facility] Calcium [Mass/volume] in Ser um or PlasmaOrdered By: Sushant Cordon on 02-08-2024 Calcium [Mass/Vol] 8.1 mg/dL Low 8.6-10.3 [facility] Carbon dioxide, total [Moles /volume] in Serum or PlasmaOrdered By: Sushant Cordon on 02-08-2024 CO2 [Moles/Vol] 29.6 mmol/L 21.0-31.0 [facility] Chloride [Moles/volume] in S jihan or PlasmaOrdered By: Sushant Cordon on 02-08-2024 Chloride [Moles/Vol] 102 mmol/L 98-107 [facility] Creatinine [Mass/volume] in Serum or PlasmaOrdered By: Sushant Cordon on 02-08-2024 Creatinine [Mass/Vol] 0.82 mg/dL 0.70-1.30 [facility] Eosinophils Auto (Bld) [#/Vo l]Ordered By: Sushant Cordon on 02-08-2024 Eosinophils (Bld) [#/Vol] 0.4 10*3/uL 0.0-0.45 [facility] Eosinophils/100 WBC Auto (Bl d)Ordered By: Sushant Cordon on 02-08-2024 Eosinophils/100 WBC (Bld) 7.1 % . [facility] Erythrocyte distribution wid th Auto (RBC) [Ratio]Ordered By: Sushant Cordon on 02-08-2024 Erythrocyte distribution width (RBC) [Ratio] 19.3 % High 12.0-14.8 [facility] Glucose Glucometer (BldC) [M ass/Vol]Ordered By: Warren Gross on 02-08-2024 Glucose [Mass/Vol] 382 mg/dL [facility] Comment on above: Random Glucose Refer ence Range is dependent on time and content of last meal. Glucose of more than 200 mg/dL in a nonstressed, ambulatory subject supports the diagnosis of Diabetes Mellitus. Glucose [Mass/volume] in Ser um or PlasmaOrdered By: Sushant Cordon on 02-08-2024 Glucose [Mass/Vol] 320 mg/dL High 70-100 [facility] Comment on above: Delta: 171 on -620ADA recommended reference rangeRandom Glucose Reference Range is dependent on time and content of last meal. Glucose of more than 200 mg/dL in a nonstressed, ambulatory subject supports the diagnosis of Diabetes Mellitus. Hematocrit Auto (Bld) [Volum e fraction]Ordered By: Sushant Cordon on 02-08-2024 Hematocrit (Bld) [Volume fraction] 25.8 % Low 38.8-50.0 [facility] Hemoglobin [Mass/volume] in BloodOrdered By: Sushant Cordon on 02-08-2024 Hemoglobin (Bld) [Mass/Vol] 8.8 g/dL Low 13.0-17.0 [facility] Leukocytes [#/volume] correc robert for nucleated erythrocytes in Blood by Automated counOrdered By: Sushant Cordon on 02-08-2024 WBC corrected for nucl RBC Auto (Bld) [#/Vol] 5.7 10*3/uL 4.1-10.5 [facility] Lymphocytes Auto (Bld) [#/Vo l]Ordered By: Sushant Cordon on 02-08-2024 Lymphocytes (Bld) [#/Vol] 1.3 10*3/uL 1.00-4.8 [facility] Lymphocytes/100 WBC Auto (Bl d)Ordered By: Sushant Cordon on 02-08-2024 Lymphocytes/100 WBC (Bld) 22.3 % . [facility] MCH Auto (RBC) [Entitic mass ]Ordered By: Sushant Cordon on 02-08-2024 MCH (RBC) [Entitic mass] 27.1 pg Low 27.5-35.2 [facility] MCHC Auto (RBC) [Mass/Vol]Or dered By: Sushant Cordon on 02-08-2024 MCHC (RBC) [Mass/Vol] 33.9 g/dL 32.5-35.6 [facility] MCV Auto (RBC) [Entitic vol] Ordered By: Sushant Cordon on 02-08-2024 MCV (RBC) [Entitic vol] 79.9 fL Low 83.5-101 [facility] Magnesium [Mass/volume] in S jihan or PlasmaOrdered By: Sushant Cordon on 02-08-2024 Magnesium [Mass/Vol] 1.8 mg/dL Low 1.9-2.7 [facility] Monocytes Auto (Bld) [#/Vol] Ordered By: Sushant Cordon on 02-08-2024 Monocytes (Bld) [#/Vol] 1.0 10*3/uL High 0.0-0.8 [facility] Monocytes/100 WBC Auto (Bld) Ordered By: Sushant Cordon on 02-08-2024 Monocytes/100 WBC (Bld) 17.6 % . [facility] Neutrophils Auto (Bld) [#/Vo l]Ordered By: Sushant Cordon on 02-08-2024 Neutrophils (Bld) [#/Vol] 3.0 10*3/uL 1.8-7.7 [facility] Neutrophils/100 WBC Auto (Bl d)Ordered By: Sushant Cordon on 02-08-2024 Neutrophils/100 WBC (Bld) 51.7 % . [facility] No Panel InformationOrdered By: Sushant Cordon on 02-08-2024 Estimated GFR (CKD-EPI) > 60.0 mL/Min [facility] Creatinine Clearance (Chem 58.45 [facility] Nucleated erythrocytes [Pres ence] in Blood by Automated countOrdered By: Sushant Cordon on 02-08-2024 Nucleated RBC Auto Ql (Bld) 0.2 /100{WBC} 0-0.5 [facility] Platelet mean volume Auto (B ld) [Entitic vol]Ordered By: Sushant Cordon on 02-08-2024 Platelet mean volume (Bld) [Entitic vol] 11.2 fL High 6.6-10.1 [facility] Platelets Auto (Bld) [#/Vol] Ordered By: Sushant Cordon on 02-08-2024 Platelets (Bld) [#/Vol] 180 10*3/uL 150-450 [facility] Potassium [Moles/volume] in Serum or PlasmaOrdered By: Sushant Cordon on 02-08-2024 Potassium [Moles/Vol] 4.4 mmol/L 3.5-5.1 [facility] RBC Auto (Bld) [#/Vol]Ordere d By: Sushant Cordon on 02-08-2024 RBC (Bld) [#/Vol] 3.23 10*6/uL Low 3.90-5.60 [facility] Serum or plasma anion gap de terminationOrdered By: Sushant Cordon on 02-08-2024 Anion gap [Moles/Vol] 7.8 mmol/L 6.0-15.0 [facility] Sodium [Moles/volume] in Ser um or PlasmaOrdered By: Sushant Cordon on 02-08-2024 Sodium [Moles/Vol] 135 mmol/L Low 136-145 [facility] Urea nitrogen [Mass/volume] in Serum or PlasmaOrdered By: Sushant Cordon on 02-08-2024 Urea nitrogen [Mass/Vol] 24 mg/dL 02-02 [facility] WBC Auto (Bld) [#/Vol]Ordere d By: Sushant Cordon on 02-08-2024 WBC (Bld) [#/Vol] 5.7 10*3/uL 4.1-10.5 [facility] No Panel InformationOrdered By: Warren Gross on 02-07-2024 Bedside Glucose #[address]/rn [facility] Bedside Glucose Comment See comment [facility] Comment on above: Glu2: Will Repeat Te st Alanine aminotransferase [En zymatic activity/volume] in Serum or PlasmaOrdered By: Sushant Cordon on 02-06-2024 ALT [Catalytic activity/Vol] 12 U/L [facility] Albumin [Mass/volume] in Ser um or Plasma by Bromocresol green (BCG) dye binding methV[facility]ed By: Sushant Cordon on 02-06-2024 Albumin BCG dye [Mass/Vol] 3.2 g/dL Low 3.5-5.7 [facility] Alkaline phosphatase [Enzyma tic activity/volume] in Serum or PlasmaOrdered By: Sushant Cordon on 02-06-2024 ALP [Catalytic activity/Vol] 94 U/L 34-104 [facility] Aspartate aminotransferase [ Enzymatic activity/volume] in Serum or PlasmaOrdered By: Sushant Cordon on 02-06-2024 AST [Catalytic activity/Vol] 15 U/L 13-39 [facility] Bilirubin.direct [Mass/volum e] in Serum or PlasmaOrdered By: Sushant Cordon on 02-06-2024 Bilirubin.direct [Mass/Vol] 0.20 mg/dL High 0.03-0.18 [facility] Bilirubin.total [Mass/volume ] in Serum or PlasmaOrdered By: Sushant Cordon on 02-06-2024 Bilirubin [Mass/Vol] 1.2 mg/dL High 0.3-1.0 [facility] Globulin Calc (S) [Mass/Vol] Ordered By: Sushant Cordon on 02-06-2024 Globulin (S) [Mass/Vol] 2.0 g/dL [facility] Glucose mean value [Mass/vol ume] in Blood Estimated from glycated hemoglobinOrdered By: Sushant Cordon on 02-06-2024 Average glucose Estimated from glycated hemoglobin (Bld) [Mass/Vol] 194 mg/dL [facility] Hemoglobin A1c percentageOrd ered By: Sushant Cordon on 02-06-2024 HbA1c (Bld) [Mass fraction] 8.4 % High 4.3-5.6 [facility] Comment on above: Increased risk for d iabetes: 5.7 - 6.4diabetes: >6.4glycemic control for adults with diabetes: <7.0 No Panel InformationOrdered By: Nayeli Jimenez on 02-06-2024 Bedside Glucose #3 Comment Follow hypoglycemic [facility] Protein [Mass/volume] in Ser um or PlasmaOrdered By: Sushant Cordon on 02-06-2024 Protein [Mass/Vol] 5.2 g/dL Low 6.4-8.9 [facility] Serum or plasma albumin/glob ulin mass ratioOrdered By: Sushant Cordon on 02-06-2024 Albumin/Globulin [Mass ratio] 1.6 {ratio} [facility] Serum or plasma non-glucuron idated bilirubin measurement (mass/volume)Ordered By: Sushant Cordon on 02-06-2024 Bilirubin.indirect [Mass/Vol] 1.0 mg/dL [facility] Troponin I.cardiac [Mass/vol ume] in Serum or Plasma by Detection limit <= 0.01 ng/Ordered By: Sushant Cordon on 02-06-2024 Troponin I.cardiac DL <= 0.01 ng/mL [Mass/Vol] 60.3 pg/mL High 0.0-20.0 [facility] Comment on above: Critical Result : Ca lled to and read back by: PRAKASH BRICENO at: 02/06/2024 09:42:22 by:CYNTHIA Vitamin D+Metabolites [Mass/ volume] in Serum or PlasmaOrdered By: Sushant Cordon on 02-06-2024 Vitamin D+Metabolites [Mass/Vol] 25.0 ng/mL Low 30-100 [facility] Comment on above: VITAMIN D STATUS 25( [place])VITAMIN D RANGE (ng/mL) Deficient <20 Insufficient 20 to <30Sufficient 30 to 100Reference: Batsheva MF,Arcadio NC, Ramy MCGEE, et al. Evaluation,treatment, and prevention of vitamin D deficiency; an Endocrine Society clinical practice guideline. JCEM. 2010; 96(7):1911-30. Acanthocytes [Presence] in B lood by Light microscopyOrdered By: Paige Luther on 02-05-2024 Acanthocytes LM Ql (Bld) Slight [facility] Activated partial thrombopla stin time (aPTT) in platelet poor plasma by coagulation aOrdered By: Paige Luther on 02-05-2024 aPTT Coag (PPP) [Time] 23.6 s Low 25.1-36.5 [facility] Comment on above: A hematocrit value g reater than 55% may lead to inaccurate results in coagulation testing. Patients having hematocrit values >55% require a special collection tube for coagulation studies. Please contact the laboratory at [phone] for redraw instructions. Alanine aminotransferase [En zymatic activity/volume] in Serum or PlasmaOrdered By: Paige Luther on 02-05-2024 ALT [Catalytic activity/Vol] 15 U/L 7-52 [facility] Albumin [Mass/volume] in Ser um or Plasma by Bromocresol green (BCG) dye binding methoOrdered By: Paige Luther on 02-05-2024 Albumin BCG dye [Mass/Vol] 3.3 g/dL Low 3.5-5.7 [facility] Alkaline phosphatase [Enzyma tic activity/volume] in Serum or PlasmaOrdered By: Paige Luther on 02-05-2024 ALP [Catalytic activity/Vol] 104 U/L 34-104 [facility] Anisocytosis LM Ql (Bld)Orde red By: Paige Luther on 02-05-2024 Anisocytosis Ql (Bld) Moderate [facility] Aspartate aminotransferase [ Enzymatic activity/volume] in Serum or PlasmaOrdered By: Paige Luther on 02-05-2024 AST [Catalytic activity/Vol] 15 U/L 13-39 [facility] Basophils Auto (Bld) [#/Vol] Ordered By: Paige Luther on 02-05-2024 Basophils (Bld) [#/Vol] 0.0 10*3/uL 0.0-0.2 [facility] Basophils/100 WBC Auto (Bld) Ordered By: Paige Luther on 02-05-2024 Basophils/100 WBC (Bld) 0.4 % . [facility] Bilirubin.direct [Mass/volum e] in Serum or PlasmaOrdered By: Paige Luther on 02-05-2024 Bilirubin.direct [Mass/Vol] 0.10 mg/dL 0.03-0.18 [facility] Bilirubin.total [Mass/volume ] in Serum or PlasmaOrdered By: Paige Luther on 02-05-2024 Bilirubin [Mass/Vol] 0.5 mg/dL 0.3-1.0 [facility] Mcdermitt cells [Presence] in Blo od by Light microscopyOrdered By: Paige Luther on 02-05-2024 Geo cells LM Ql (Bld) [facility]light [facility] Calcium [Mass/volume] in Ser um or PlasmaOrdered By: Paige Luther on 02-05-2024 Calcium [Mass/Vol] 8.6 mg/dL 8.6-10.3 [facility] Carbon dioxide, total [Moles /volume] in Serum or PlasmaOrdered By: Paige Luther on 02-05-2024 CO2 [Moles/Vol] 23.1 mmol/L 21.0-31.0 [facility] Chloride [Moles/volume] in S jihan or PlasmaOrdered By: Paige Luther on 02-05-2024 Chloride [Moles/Vol] 103 mmol/L 98-107 [facility] Creatine kinase [Enzymatic a ctivity/volume] in Serum or PlasmaOrdered By: Paige Luther on 02-05-2024 CK [Catalytic activity/Vol] 114 U/L 30-223 [facility] Creatinine [Mass/volume] in Serum or PlasmaOrdered By: Paige Luther on 02-05-2024 Creatinine [Mass/Vol] 1.09 mg/dL 0.70-1.30 [facility] Eosinophils Auto (Bld) [#/Vo l]Ordered By: Paige Luther on 02-05-2024 Eosinophils (Bld) [#/Vol] 0.0 10*3/uL 0.0-0.45 [facility] Eosinophils/100 WBC Auto (Bl d)Ordered By: Paige Luther on 02-05-2024 Eosinophils/100 WBC (Bld) 0.2 % . [facility] Erythrocyte distribution wid th Auto (RBC) [Ratio]Ordered By: Paige Luther on 02-05-2024 Erythrocyte distribution width (RBC) [Ratio] 20.3 % High 12.0-14.8 [facility] Globulin Calc (S) [Mass/Vol] Ordered By: Paige Luther on 02-05-2024 Globulin (S) [Mass/Vol] 2.4 g/dL [facility] Glucose [Mass/volume] in Ser um or PlasmaOrdered By: Paige Luther on 02-05-2024 Glucose [Mass/Vol] 158 mg/dL High 70-100 [facility] Comment on above: ADA recommended refe rence rangeRandom Glucose Reference Range is dependent on time and content of last meal. Glucose of more than 200 mg/dL in a nonstressed, ambulatory subject supports the diagnosis of Diabetes Mellitus. Hematocrit Auto (Bld) [Volum e fraction]Ordered By: Paige Luther on 02-05-2024 Hematocrit (Bld) [Volume fraction] 23.7 % Low 38.8-50.0 [facility] Hemoglobin [Mass/volume] in BloodOrdered By: Paige Luther on 02-05-2024 Hemoglobin (Bld) [Mass/Vol] 7.7 g/dL Low 13.0-17.0 [facility] Hemoglobin.gastrointestinal [Presence] in StoolOrdered By: Paige Luther on 02-05-2024 Hemoglobin.gastrointes tinal Ql (Stl) [facility] Hypochromia LM Ql (Bld)Order ed By: Paige Luther on 02-05-2024 Hypochromia Ql (Bld) Marked [facility] INR in Platelet poor plasma by Coagulation assayOrdered By: Paige Luther on 02-05-2024 INR Coag (PPP) [Relative time] 1.3 {INR} [facility] Comment on above: INR Therapeutic [...] with mechanical heart valves: 3 - 4.5 Leukocytes [#/volume] correc robert for nucleated erythrocytes in Blood by Automated counOrdered By: Paige Luther on 02-05-2024 WBC corrected for nucl RBC Auto (Bld) [#/Vol] 9.0 10*3/uL 4.1-10.5 [facility] Lipase [Enzymatic activity/v olume] in Serum or PlasmaOrdered By: Paige Luther on 02-05-2024 Lipase [Catalytic activity/Vol] 5.0 U/L Low 11.0-82.0 [facility] Lymphocytes Auto (Bld) [#/Vo l]Ordered By: Paige Luther on 02-05-2024 Lymphocytes (Bld) [#/Vol] 1.5 10*3/uL 1.00-4.8 [facility] Lymphocytes/100 WBC Auto (Bl d)Ordered By: Paige Luther on 02-05-2024 Lymphocytes/100 WBC (Bld) 16.3 % . [facility] MCH Auto (RBC) [Entitic mass ]Ordered By: Paige Luther on 02-05-2024 MCH (RBC) [Entitic mass] 24.9 pg Low 27.5-35.2 [facility] MCHC Auto (RBC) [Mass/Vol]Or dered By: Paige Luther on 02-05-2024 MCHC (RBC) [Mass/Vol] 32.6 g/dL 32.5-35.6 [facility] MCV Auto (RBC) [Entitic vol] Ordered By: Paige Luther on 02-05-2024 MCV (RBC) [Entitic vol] 76.3 fL Low 83.5-101 [facility] Macrocytes LM Ql (Bld)Ordere d By: Paige Luther on 02-05-2024 Macrocytes Ql (Bld) Slight [facility] Microcytes LM Ql (Bld)Ordere d By: Paige Luther on 02-05-2024 Microcytes Ql (Bld) Slight [facility] Monocyte distribution width [Entitic volume] in Blood by AutomatedOrdered By: Paige Luther on 02-05-2024 Monocyte distribution width Auto (Bld) [Entitic vol] 17.22 % 0.00-20.00 [facility] Monocytes Auto (Bld) [#/Vol] Ordered By: Paige Luther on 02-05-2024 Monocytes (Bld) [#/Vol] 0.4 10*3/uL 0.0-0.8 [facility] Monocytes/100 WBC Auto (Bld) Ordered By: Paige Luther on 02-05-2024 Monocytes/100 WBC (Bld) 4.8 % . [facility] Natriuretic peptide B [Mass/ Vol]Ordered By: Paige Luther on 02-05-2024 Natriuretic peptide B (Bld) [Mass/Vol] 399.0 pg/mL High 5-100 [facility] Neutrophils Auto (Bld) [#/Vo l]Ordered By: Paige Luther on 02-05-2024 Neutrophils (Bld) [#/Vol] 7.0 10*3/uL 1.8-7.7 [facility] Neutrophils/100 WBC Auto (Bl d)Ordered By: Paige Luther on 02-05-2024 Neutrophils/100 WBC (Bld) 78.3 % . [facility] No Panel InformationOrdered By: Paige Luther on 02-05-2024 Estimated GFR (CKD-EPI) > 60.0 mL/Min [facility] Creatinine Clearance (Chem 45.07 [facility] Slides for Pathologist Review Ordered path review [facility] Nucleated erythrocytes [Pres ence] in Blood by Automated countOrdered By: Paige Luther on 02-05-2024 Nucleated RBC Auto Ql (Bld) 0.1 /100{WBC} 0-0.5 [facility] Platelet adequacy [Presence] in Blood by Light microscopyOrdered By: Paige Luther on 02-05-2024 Platelets LM Ql (Bld) Normal Normal [facility] Platelet mean volume Auto (B ld) [Entitic vol]Ordered By: Paige Luther on 02-05-2024 Platelet mean volume (Bld) [Entitic vol] 10.6 fL High 6.6-10.1 [facility] Platelet morphology finding [Identifier] in BloodOrdered By: Paige Luther on 02-05-2024 Platelet morphology finding Nom (Bld) Normal Normal [facility] Platelets Auto (Bld) [#/Vol] Ordered By: Paige Luther on 02-05-2024 Platelets (Bld) [#/Vol] 277 10*3/uL 150-450 [facility] [facility] Poikilocytosis [Presence] in Blood by Light microscopyOrdered By: Paige Luther on 02-05-2024 Poikilocytosis LM Ql (Bld) Marked [facility] Polychromasia [Presence] in Blood by Light microscopyOrdered By: Paige Luther on 02-05-2024 Polychromasia LM Ql (Bld) [facility] Potassium [Moles/volume] in Serum or PlasmaOrdered By: Paige Luther on 02-05-2024 Potassium [Moles/Vol] 5.1 mmol/L 3.5-5.1 [facility] Protein [Mass/volume] in Ser um or PlasmaOrdered By: Paige Luther on 02-05-2024 Protein [Mass/Vol] 5.7 g/dL Low 6.4-8.9 [facility] Prothrombin time (PT)Ordered By: Paige Luther on 02-05-2024 PT Coag (PPP) [Time] 15.5 s High 9.0-12.9 [facility] Comment on above: A hematocrit value g reater than 55% may lead to inaccurate results in coagulation testing. Patients having hematocrit values >55% require a special collection tube for coagulation studies. Please contact the laboratory at [phone] for redraw instructions. RBC Auto (Bld) [#/Vol]Ordere d By: Paige Luther on 02-05-2024 RBC (Bld) [#/Vol] 3.11 10*6/uL Low 3.90-5.60 [facility] RBC morphologyOrdered By: Malou Luther on 02-05-2024 RBC morphology finding Nom (Bld) N/A [facility] Schistocytes [Presence] in B lood by Light microscopyOrdered By: Paige Luther on 02-05-2024 Schistocytes LM Ql (Bld) [facility] Serum or plasma albumin/glob ulin mass ratioOrdered By: Paige Luther on 02-05-2024 Albumin/Globulin [Mass ratio] 1.4 {ratio} [facility] Serum or plasma anion gap de terminationOrdered By: Paige Luther on 02-05-2024 Anion gap [Moles/Vol] 12.0 mmol/L 6.0-15.0 [facility] Serum or plasma non-glucuron idated bilirubin measurement (mass/volume)Ordered By: Paige Luther on 02-05-2024 Bilirubin.indirect [Mass/Vol] 0.4 mg/dL [facility] Sodium [Moles/volume] in Ser um or PlasmaOrdered By: Paige Luther on 02-05-2024 Sodium [Moles/Vol] 133 mmol/L Low 136-145 [facility] Target cellsOrdered By: Michelle Luther on 02-05-2024 Target cells LM Ql (Bld) Slight [facility] Troponin I.cardiac [Mass/vol ume] in Serum or Plasma by Detection limit <= 0.01 ng/Ordered By: Paige Luther on 02-05-2024 Troponin I.cardiac DL <= 0.01 ng/mL [Mass/Vol] 85.5 pg/mL High 0.0-20.0 [facility] Comment on above: Critical Result : Ca lled to and read back by: PAIGE BENNETT at: 02/06/2024 00:36:33 by:[id number] Urea nitrogen [Mass/volume] in Serum or PlasmaOrdered By: Paige Luther on 02-05-2024 Urea nitrogen [Mass/Vol] 58 mg/dL High 7-25 [facility] WBC Auto (Bld) [#/Vol]Ordere d By: Paige Luther on 02-05-2024 WBC (Bld) [#/Vol] 9.0 10*3/uL 4.1-10.5 [facility] CBC AND AUTO DIFFon 01-24-20 24 ABSOLUTE BASOPHIL 0.1 X10E9/L Normal 0.0-0.2 [facility] Comment on above: Performed By: #### C BCA, 82098-1, PINR, 77947-6, 22827-5, 54652-6, 48964-4, THYR, 71443-2, CMP, 52453-4, 2157-6 #### [facility] ([id number]) [address] [place] [address] #### HA1C #### [facility] ([id number]) [address] [facility], [address] [place] [address] ACANTHOCYTE 1+ Abnormal NONE [facility] Comment on above: Performed By: #### C BCA, 63256-4, PINR, 43603-7, 28740-3, 82061-6, 05879-3, THYR, 03590-9, CMP, 03957-7, 2157-6 #### [facility] ([id number]) [address] [place] [address] #### HA1C #### [facility] ([id number]) [address], [address] [place] [address] Band form neutrophils/100 WBC (Bld) 1.0 % Normal [facility] Comment on above: Performed By: #### C BCA, 00365-6, PINR, 64143-8, 37855-1, 79915-9, 38415-9, THYR, 36675-9, CMP, 03070-9, 2156-6 #### [facility] ([id number]) [address] [place] [place] [address] #### HA1C #### [facility] ([id number]) [address] [facility], [address] [place] [address] Basophils/100 WBC (Bld) 1.0 % Normal [facility] Comment on above: Performed By: #### C BCA, 52340-7, PINR, 56511-4, 45805-7, 28325-2, 09983-3, THYR, 78478-0, CMP, 36016-1, 2156-6 #### [facility] ([id number]) [address] [place] [address] #### HA1C #### [facility] ([id number]) [address] [place] [address], [address] [place] [address] GEO 2+ Abnormal NONE [facility] Comment on above: Performed By: #### C BCA, 55377-4, PINR, 10412-0, 13517-6, 08208-0, 98230-7, THYR, 60170-4, CMP, 00371-2, 7-6 #### [facility] ([id number]) [address] [place] [address] #### HA1C #### [facility] ([id number]) [address], [address] [place] [address] Eosinophils (Bld) [#/Vol] 0.2 10*3/uL Normal 0.0-0.4 [facility] Comment on above: Performed By: #### C BCA, 34788-6, PINR, 29316-2, 24411-5, 77846-2, 58252-1, THYR, 45833-2, CMP, 58763-2, 2156-6 #### [facility] ([id number]) [address] [place] [address] #### HA1C #### [facility] ([id number]) [address] [facility], [address] [place] [address] Eosinophils/100 WBC (Bld) 1.9 % Normal [facility] Comment on above: Performed By: #### C BCA, 85073-2, PINR, 47271-2, 08399-8, 26091-2, 25717-0, THYR, 78366-1, CMP, 63713-8, 2156-6 #### [facility] ([id number]) [address] [place] [address] #### HA1C #### [facility] ([id number]) [address] [facility], [address] [place] [address] Erythrocyte distribution width (RBC) [Ratio] 19.3 % High 11.5-15.0 [facility] Comment on above: Performed By: #### C BCA, 63900-3, PINR, 72108-7, 98064-6, 27843-2, 48452-6, THYR, 88766-4, CMP, 48368-8, 2156-6 #### [facility] ([id number]) [address] [place], [place] [address] #### HA1C #### [facility] ([id number]) [address] [facility] [facility], [address] [place] [address] FRAGMENT 2+ Abnormal NONE [facility] Comment on above: Performed By: #### C BCA, 28657-2, PINR, 57361-6, 09562-9, 51750-6, 25397-5, THYR, 45981-2, CMP, 04585-6, 2157-6 #### [facility] ([id number]) [address] [place] [address] #### HA1C #### [facility] ([id number]) [address], [address] [place] [address] Hematocrit (Bld) [Volume fraction] 31.5 % Low 39-49 [facility] Comment on above: Performed By: #### C BCA, 13659-6, PINR, 23043-1, 00918-7, 25147-3, 83158-3, THYR, 50049-8, CMP, 35588-7, 2156-6 #### [facility] ([id number]) [address] [place] [address] #### HA1C #### [facility] ([id number]) [address], [address] [address] Hemoglobin (Bld) [Mass/Vol] 10.4 g/dL Low 13.0-17.0 [facility] Comment on above: Performed By: #### C BCA, 87195-0, PINR, 67055-2, 79261-8, 55984-1, 79526-2, THYR, 07598-8, CMP, 33980-7, 2156-6 #### [facility] ([id number]) [address] [place], [place] [address] #### HA1C #### [facility] ([id number]) [address], [address] [place] [address] HYPOCHROMIA 2+ Abnormal NONE [facility] Comment on above: Performed By: #### C BCA, 38234-1, PINR, 63489-9, 75318-1, 23138-8, 82009-4, THYR, 40476-7, CMP, 00603-2, 2156- #### [facility] ([id number]) [address] [place] [address] #### HA1C #### [facility] ([id number]) [address] [place] [address], [address] [place] [address] LYMPHOCYTE, ATYPICAL 1.0 % Normal [facility] Comment on above: Performed By: #### C BCA, 98849-3, PINR, 98238-8, 26747-4, 40771-6, 95841-0, THYR, 98852-3, CMP, 61666-6, 2156-12 #### [facility] ([id number]) [address] [place] [address] #### HA1C #### [facility] ([id number]) [address] [place] [address], [address] [address] Lymphocytes (Bld) [#/Vol] 1.9 10*3/uL Normal 1.0-3.5 [facility] Comment on above: Performed By: #### C BCA, 81351-3, PINR, 92845-3, 40780-9, 18816-9, 80352-0, THYR, 21979-7, CMP, 60157-5, 2156-12 #### [facility] ([id number]) [address] [place] [address] #### HA1C #### [facility] ([id number]) [address] [place] [address], [address] [address] Lymphocytes/100 WBC (Bld) 20.0 % Normal [facility] Comment on above: Performed By: #### C BCA, 63684-4, PINR, 31404-0, 62589-1, 83361-0, 83551-6, THYR, 19606-3, CMP, 51644-1, 2156-12 #### [facility] ([id number]) [address] [place] [address] #### HA1C #### [facility] ([id number]) [address] [place] [address], [address] [place] [address] MCH (RBC) [Entitic mass] 24.6 pg Low 27-34 [facility] Comment on above: Performed By: #### C BCA, 08698-8, PINR, 83534-4, 76023-5, 19962-0, 92868-2, THYR, 23776-2, CMP, 41062-4, 2156-12 #### [facility] ([id number]) [address] [place] [address] #### BALA #### [facility] ([id number]) [address] [place] [address], [address] [place] [address] MCHC (RBC) [Mass/Vol] 32.9 g/dL Normal 32-36 [facility] Comment on above: Performed By: #### C BCA, 54610-4, PINR, 95080-1, 16994-6, 36893-9, 74738-2, THYR, 66727-3, CMP, 39025-2, 2156-12 #### [facility] ([id number]) [address] [place] [address] #### HA1C #### [facility] ([id number]) [address] [place] [address], [address] [place] [address] MCV (RBC) [Entitic vol] 75 fL Low 80-100 [facility] Comment on above: Performed By: #### C BCA, 70352-8, PINR, 52606-8, 78594-1, 45269-4, 66469-9, THYR, 40854-2, CMP, 83388-2, 2156-12 #### [facility] ([id number]) [address] [place] [address] #### HA1C #### [facility] ([id number]) [address], [address] [place] [address] Monocytes (Bld) [#/Vol] 0.9 10*3/uL Normal 0-0.9 [facility] Comment on above: Performed By: #### C BCA, 56281-4, PINR, 33386-6, 86027-5, 03809-6, 70025-4, THYR, 86889-3, CMP, 11074-5, 2157-6 #### [facility] ([id number]) [address] [place] [address] #### HA1C #### [facility] ([id number]) [address] [place] [address], [address] [place] [address] Monocytes/100 WBC (Bld) 9.5 % Normal [facility] Comment on above: Performed By: #### C BCA, 62778-3, PINR, 41275-2, 91893-8, 89148-1, 10837-5, THYR, 87380-9, CMP, 22925-4, 2156-6 #### [facility] ([id number]) [address] [place] [address] #### HA1C #### [facility] ([id number]) [address] [place] [address], [address] [place] [address] Neutrophils (Bld) [#/Vol] 6.1 10*3/uL Normal 1.5-6.6 [facility] Comment on above: Performed By: #### C BCA, 54084-5, PINR, 45025-7, 78218-4, 90298-1, 54781-4, THYR, 48793-5, CMP, 61455-7, 2156-6 #### [facility] ([id number]) [address] [place] [address] #### HA1C #### [facility] ([id number]) [address] [place] [address], [address] [place] [address] Platelet mean volume (Bld) [Entitic vol] 10.6 fL Normal 7-12 [facility] Comment on above: Performed By: #### C BCA, 72373-0, PINR, 85267-4, 99492-3, 08646-0, 26921-6, THYR, 87273-7, CMP, 73697-7, 2157-6 #### [facility] ([id number]) [address] [place] [address] #### HA1C #### [facility] ([id number]) [address], [facility] [address] [place] [address] Platelets (Bld) [#/Vol] 245 10*3/uL Normal 150-450 [facility] Comment on above: Performed By: #### C BCA, 81501-0, PINR, 89090-4, 93934-3, 63450-6, 00064-8, THYR, 12007-7, CMP, 57380-7, 2156-6 #### [facility] ([id number]) [address] [place] [address] #### HA1C #### [facility] ([id number]) [address], [address] [place] [address] RBC COUNT 4.22 X10E12/L Normal 4.10-5.70 [facility] Comment on above: Performed By: #### C BCA, 04707-7, PINR, 65893-3, 17768-5, 70049-8, 43252-5, THYR, 13975-4, CMP, 63268-9, 2156-6 #### [facility] ([id number]) [address] [place] [address] #### HA1C #### [facility] ([id number]) [address], [address] [place] [address] SEG NEUTROPHIL 65.6 % Normal [facility] Comment on above: Performed By: #### C BCA, 72410-4, PINR, 11907-6, 28757-7, 07240-8, 14238-8, THYR, 09566-3, CMP, 51338-9, 7-6 #### [facility] ([id number]) [address] [place] [address] #### HA1C #### [facility] ([id number]) [address] [place] [address], [address] [place] [address] T[employer] 1+ Abnormal NONE [facility] Comment on above: Performed By: #### C BCA, 79543-5, PINR, 40651-1, 72893-6, 30976-9, 52740-8, THYR, 81951-6, CMP, 33396-4, 2156-6 #### [facility] ([id number]) [address] [place] [address] #### HA1C #### [facility] ([id number]) [address] [place] [address], [address] [place] [address] WBC (Bld) [#/Vol] 9.2 10*3/uL Normal 4.0-11.0 [facility] Comment on above: Performed By: #### C BCA, 64034-7, PINR, 18940-3, 49725-3, 85058-1, 86572-0, THYR, 78182-8, CMP, 91651-8, 2156-6 #### [facility] ([id number]) [address] [place] [address] #### HA1C #### [facility] ([id number]) [address] [place] [address], [address] [place] [address] CK [Catalytic activity/Vol]o n 01-24-2024 CPK 283 U/L High 24-195 [facility] Comment on above: Performed By: #### C BCA, 55165-4, PINR, 00703-4, 36888-6, 76344-4, 64688-2, THYR, 16238-7, CMP, 15920-6, 215-6 #### [facility] ([id number]) [address] [place] [address] #### HA1C #### [facility] ([id number]) [address] [facility] [address] [place] [address] CPK 350 U/L High 24-195 [facility] Comment on above: Performed By: #### C BCA, 53604-6, PINR, 78201-7, 47546-2, 63021-8, 50841-5, THYR, 36643-2, CMP, 53211-7, 2156-6 #### [facility] ([id number]) [address] [place] [address] #### HA1C #### [facility] ([id number]) [address] [facility], [address] [place] [address] COMPREHENSIVE METABOLIC PANE Jairo 01-24-2024 Albumin [Mass/Vol] 3.4 g/dL Normal 3.2-5.3 [facility] Comment on above: Performed By: #### C BCA, 79398-8, PINR, 10786-1, 35685-2, 79218-7, 67603-2, THYR, 06532-3, CMP, 55994-1, 2156-6 #### [facility] ([id number]) [address] [place] [address] #### HA1C #### [facility] ([id number]) [address] [facility] [place] [address] ALP [Catalytic activity/Vol] 102 U/L Normal 39-130 [facility] Comment on above: Performed By: #### C BCA, 62809-6, PINR, 70373-0, 35231-5, 88886-7, 43743-0, THYR, 36793-6, CMP, 62335-8, 2157-6 #### [facility] ([id number]) [address] [place] [address] #### HA1C #### [facility] ([id number]) [address] [place] [address], [address] [place] [address] ALT [Catalytic activity/Vol] 26 U/L Normal 0-40 [facility] Comment on above: Performed By: #### C BCA, 06615-8, PINR, 04826-7, 37395-8, 91729-7, 84545-5, THYR, 39534-7, CMP, 09787-2, 2156-6 #### [facility] ([id number]) [address] [place] [address] #### HA1C #### [facility] ([id number]) [address] [place] [address], [address] [place] [address] Anion gap [Moles/Vol] 9 mmol/L Normal 5-15 [facility] Comment on above: Performed By: #### C BCA, 97091-6, PINR, 72921-8, 78349-7, 37760-5, 91191-7, THYR, 11501-8, CMP, 47788-1, 2156-6 #### [facility] ([id number]) [address] [place] [address] #### HA1C #### [facility] ([id number]) [address] [place] [address], [address] [place] [address] AST [Catalytic activity/Vol] 31 U/L Normal 0-41 [facility] Comment on above: Performed By: #### C BCA, 12957-8, PINR, 63535-6, 31229-3, 83895-4, 24399-4, THYR, 93208-6, CMP, 02122-9, 2156-6 #### [facility] ([id number]) [address] [place], [place] [address] #### HA1C #### [facility] ([id number]) [address], [address] [place] [address] Bilirubin [Mass/Vol] 0.7 mg/dL Normal 0.3-1.2 [facility] Comment on above: Performed By: #### C BCA, 11834-7, PINR, 40863-3, 58618-1, 71549-4, 74683-3, THYR, 25969-2, CMP, 68381-8, 7-6 #### [facility] ([id number]) [address] [place] [address] #### HA1C #### [facility] ([id number]) [address], [address] [place] [address] Calcium [Mass/Vol] 8.5 mg/dL Normal 8.5-10.5 [facility] Comment on above: Performed By: #### C BCA, 19659-5, PINR, 38059-5, 68246-5, 20785-0, 70472-0, THYR, 26926-7, CMP, 91219-1, 2156-6 #### [facility] ([id number]) [address] [place] [address] #### HA1C #### [facility] ([id number]) [address], [address] [place] [address] Chloride [Moles/Vol] 103 mmol/L Normal 98-109 [facility] Comment on above: Performed By: #### C BCA, 66105-8, PINR, 21880-5, 84403-2, 22674-8, 96132-6, THYR, 25731-4, CMP, 43905-2, 2156-6 #### [facility] ([id number]) [address] [place] [address] #### HA1C #### [facility] ([id number]) [address], [address] [place] [address] CO2 [Moles/Vol] 24 mmol/L Normal 22-32 [facility] Comment on above: Performed By: #### C BCA, 91695-0, PINR, 28210-0, 77463-5, 02440-4, 85196-3, THYR, 07219-6, CMP, 97414-8, 2157-6 #### [facility] ([id number]) [address] [place] [address] #### HA1C #### [facility] ([id number]) [address] [facility], [address] [place] [address] Creatinine [Mass/Vol] 0.77 mg/dL Normal 0.60-1.30 [facility] Comment on above: Result Comment: METH OD TRACEABLE TO IDMS STANDARD Performed By: #### C BCA, 52574-4, PINR, 14087-6, 80445-2, 31473-2, 99138-6, THYR, 83570-1, CMP, 60703-0, 2156- #### [facility] ([id number]) [address] [place] [address] #### HA1C #### [facility] ([id number]) [address] [place] [address], [address] [place] [address] GFR/1.73 sq M.predicted among non-blacks MDRD (S/P/Bld) [Vol rate/Area] 87 mL/min/{1.73_m2} Normal >59 [facility] Comment on above: Result Comment: Reported eGFR is based on the CKD-EPI 2020 equation that does not use a race coefficient. Performed By: #### C BCA, 79657-6, PINR, 24265-1, 22221-5, 58019-2, 01048-2, THYR, 61847-0, CMP, 88921-8, 2156-6 #### [facility] ([id number]) [address] [place] [address] #### HA1C #### [facility] ([id number]) [address], [address] [place] [address] Glucose [Mass/Vol] 167 mg/dL High 65-99 [facility] Comment on above: Performed By: #### C BCA, 94539-0, PINR, 53241-7, 73546-9, 87843-6, 40830-6, THYR, 27153-8, CMP, 17664-5, 2157-6 #### [facility] ([id number]) [address] [place] [place] [address] #### HA1C #### [facility] ([id number]) [address], [address] [place] [address] Potassium [Moles/Vol] 4.0 mmol/L Normal 3.5-5.0 [facility] Comment on above: Performed By: #### C BCA, 58317-8, PINR, 51768-6, 72268-4, 60629-3, 29668-7, THYR, 34216-1, CMP, 33300-1, 2156-6 #### [facility] ([id number]) [address] [place] [address] #### HA1C #### [facility] ([id number]) [address], [address] [place] [address] Protein [Mass/Vol] 6.0 g/dL Normal 6.0-8.0 [facility] Comment on above: Performed By: #### C BCA, 12625-5, PINR, 00869-2, 26245-2, 46814-5, 63981-8, THYR, 16747-5, CMP, 71753-1, 2156-6 #### [facility] ([id number]) [address] [place] [address] #### HA1C #### [facility] ([id number]) [address] [place] [address] Sodium [Moles/Vol] 136 mmol/L Normal 134-146 [facility] Comment on above: Performed By: #### C BCA, 08217-5, PINR, 93757-0, 44365-9, 12600-6, 59763-8, THYR, 88766-0, CMP, 88191-4, 2156-6 #### [facility] ([id number]) [address] [place] [address] #### HA1C #### [facility] ([id number]) [address], [address] [place] [address] Urea nitrogen [Mass/Vol] 16 mg/dL Normal 5-27 [facility] Comment on above: Performed By: #### C BCA, 61225-5, PINR, 64908-6, 41735-3, 73048-4, 83064-2, THYR, 54100-6, CMP, 19778-3, 2156- #### [facility] ([id number]) [address] [place] [address] #### HA1C #### [facility] ([id number]) [address] [place] [address], [address] [place] [address] Glucose Glucometer (BldC) [M ass/Vol]on 01-24-2024 Glucose [Mass/Vol] 371 mg/dL High 65-99 [facility] Glucose [Mass/Vol] 181 mg/dL High 65-99 [facility] MAGNESIUMon 01-24-2024 Magnesium [Mass/Vol] 1.6 mg/dL Low 1.8-2.6 [facility] Comment on above: Performed By: #### C BCA, 89228-9, PINR, 37710-2, 16108-2, 07111-7, 48899-0, THYR, 17031-9, CMP, 18184-4, 2156-6 #### [facility] ([id number]) [facility] [place] [address] #### HA1C #### [facility] ([id number]) [address], [address] [place] [address] CK [Catalytic activity/Vol]o n 01-23-2024 CPK 471 U/L High 24-195 [facility] Comment on above: Performed By: #### C BCA, 98193-4, PINR, 52145-0, 16434-1, 37443-6, 98561-6, THYR, 88439-8, CMP, 24730-7, 2157-6 #### [facility] ([id number]) [address] [place] [address] #### HA1C #### [facility] ([id number]) [address] [place] [address], [address] [place] [address] CPK 591 U/L High 24-195 [facility] Comment on above: Performed By: #### C BCA, 51691-9, PINR, 49149-1, 64693-0, 21620-6, 95567-1, THYR, 70263-9, CMP, 45034-8, 2157-6 #### [facility] ([id number]) [address] [place], [place] [id number] #### HA1C #### [facility] ([id number]) [address] [place] [address], [address] [place] [address] CPK 875 U/L High 24-195 [facility] Comment on above: Performed By: #### C BCA, 97372-4, PINR, 65275-6, 95541-4, 63645-0, 53791-7, THYR, 06293-3, CMP, 86821-4, 2157-6 #### [facility] ([id number]) [address] [place], [place] [address] #### HA1C #### [facility] ([id number]) [address] [place] [address], [address] [place] [address] COMPLETE BLOOD COUNTon 01-22 Erythrocyte distribution width (RBC) [Ratio] 19.8 % High 11.5-15.0 [facility] Comment on above: Performed By: #### C BCA, 85600-7, PINR, 73344-0, 42017-3, 48253-2, 76063-8, THYR, 85664-5, CMP, 55925-3, 2157-6 #### [facility] ([id number]) [address] [place] [place] [address] #### HA1C #### [facility] ([id number]) [address], [address] [place] [address] Hematocrit (Bld) [Volume fraction] 34.0 % Low 39-49 [facility] Comment on above: Performed By: #### C BCA, 69925-7, PINR, 89918-7, 98337-6, 51194-5, 80935-8, THYR, 75029-5, CMP, 38532-8, 2156-6 #### [facility] ([id number]) [address] [place] [place] [address] #### HA1C #### [facility] ([id number]) [address], [address] [place] [address] Hemoglobin (Bld) [Mass/Vol] 11.0 g/dL Low 13.0-17.0 [facility] Comment on above: Performed By: #### C BCA, 57597-6, PINR, 98892-9, 99047-3, 89669-0, 78152-8, THYR, 11333-7, CMP, 78730-7, 2156-6 #### [facility] ([id number]) [address] [place], [place] [address] #### HA1C #### [facility] ([id number]) [address], [address] [place] [address] MCH (RBC) [Entitic mass] 24.3 pg Low 27-34 [facility] Comment on above: Performed By: #### C BCA, 68922-5, PINR, 07451-0, 50072-2, 49557-4, 41993-8, THYR, 64924-9, CMP, 23181-3, 2156-6 #### [facility] ([id number]) [address] [place] [address] #### HA1C #### [facility] ([id number]) [address] [place] [address], [address] [place] [address] MCHC (RBC) [Mass/Vol] 32.3 g/dL Normal 32-36 [facility] Comment on above: Performed By: #### C BCA, 85846-4, PINR, 11484-7, 61545-2, 69961-6, 87281-8, THYR, 94311-1, CMP, 46906-5, 2156-12 #### [facility] ([id number]) [address] [place] [address] #### HA1C #### [facility] ([id number]) [address] [place] [address], [address] [place] [address] MCV (RBC) [Entitic vol] 75 fL Low 80-100 [facility] Comment on above: Performed By: #### C BCA, 94035-3, PINR, 47524-0, 86266-4, 60010-0, 00467-2, THYR, 32588-8, CMP, 74786-2, 2156- #### [facility] ([id number]) [address] [place] [address] #### HA1C #### [facility] ([id number]) [address] [place] [address], [address] [place] [address] Platelet mean volume (Bld) [Entitic vol] 10.5 fL Normal 7-12 [facility] Comment on above: Performed By: #### C BCA, 93692-0, PINR, 66174-8, 03678-2, 67525-1, 68015-2, THYR, 15835-2, CMP, 43514-9, 2157-6 #### [facility] ([id number]) [address] [place] [address] #### HA1C #### [facility] ([id number]) [address], [address] [place] [address] Platelets (Bld) [#/Vol] 237 10*3/uL Normal 150-450 [facility] Comment on above: Performed By: #### C BCA, 40039-7, PINR, 90969-9, 79822-3, 91071-3, 81549-4, THYR, 84965-9, CMP, 74531-4, 7-6 #### [facility] ([id number]) [address] [place] [address] #### HA1C #### [facility] ([id number]) [address] [place] [address], [address] [place] [address] RBC COUNT 4.51 X10E12/L Normal 4.10-5.70 [facility] Comment on above: Performed By: #### C BCA, 21753-2, PINR, 43940-6, 21847-3, 60548-6, 95358-2, THYR, 74831-2, CMP, 00882-4, 7-6 #### [facility] ([id number]) [address] [place] [address] #### HA1C #### [facility] ([id number]) [address] [facility], [address] [place] [address] WBC (Bld) [#/Vol] 12.3 10*3/uL High 4.0-11.[address] [facility] Comment on above: Performed By: #### C BCA, 22195-4, PINR, 14695-8, 14800-4, 52672-3, 59106-3, THYR, 99444-8, CMP, 63662-8, 2157-6 #### [facility] ([id number]) [address] [place] [address] #### HA1C #### [facility] ([id number]) [address] [facility], [address] [place] [address] COMPREHENSIVE METABOLIC PANE Jairo 01-23-2024 Albumin [Mass/Vol] 3.7 g/dL Normal 3.2-5.3 [facility] Comment on above: Performed By: #### C BCA, 15666-0, PINR, 49812-4, 53207-7, 33899-1, 00962-1, THYR, 75630-6, CMP, 29357-4, 2157-6 #### [facility] ([id number]) [address] [place] [address] #### HA1C #### [facility] ([id number]) [address] [facility], [address] [place] [address] ALP [Catalytic activity/Vol] 117 U/L Normal 39-130 [facility] Comment on above: Performed By: #### C BCA, 31300-7, PINR, 89839-0, 52726-9, 04488-1, 30486-9, THYR, 18970-4, CMP, 86320-7, 2157-6 #### [facility] ([id number]) [address] [place] [address] #### HA1C #### [facility] ([id number]) [address] [facility], [address] [place] [address] ALT [Catalytic activity/Vol] 29 U/L Normal 0-40 [facility] Comment on above: Performed By: #### C BCA, 10023-5, PINR, 78034-0, 60302-7, 06610-6, 00044-7, THYR, 82755-0, CMP, 57585-1, 2157-6 #### [facility] ([id number]) [address] [place] [address] #### HA1C #### [facility] ([id number]) [address], [address] [place] [address] Anion gap [Moles/Vol] 13 mmol/L Normal 5-15 [facility] Comment on above: Performed By: #### C BCA, 25342-6, PINR, 29189-6, 20683-9, 99755-7, 56160-3, THYR, 40318-8, CMP, 52342-2, 2157-6 #### [facility] ([id number]) [address] [place], [place] [address] #### HA1C #### [facility] ([id number]) [address] [facility], [address] [place] [address] AST [Catalytic activity/Vol] 51 U/L High 0-41 [facility] Comment on above: Performed By: #### C BCA, 72604-2, PINR, 04736-0, 98857-7, 53411-2, 32460-3, THYR, 99287-7, CMP, 98705-0, 2157-6 #### [facility] ([id number]) [address] [place] [address] #### HA1C #### [facility] ([id number]) [address] [facility], [address] [place] [address] Bilirubin [Mass/Vol] 0.7 mg/dL Normal 0.3-1.2 [facility] Comment on above: Performed By: #### C BCA, 46419-8, PINR, 17349-0, 34241-2, 08548-5, 85504-4, THYR, 64124-7, CMP, 46332-1, 2157-6 #### [facility] ([id number]) [address] [place] [address] #### HA1C #### [facility] ([id number]) [address], [address] [place] [address] Calcium [Mass/Vol] 8.5 mg/dL Normal 8.5-10.5 [facility] Comment on above: Performed By: #### C BCA, 35658-4, PINR, 05513-3, 76465-9, 72392-6, 17463-2, THYR, 76893-2, CMP, 35081-8, 2157-6 #### [facility] ([id number]) [address] [place] [address] #### HA1C #### [facility] ([id number]) [address], [address] [place] [address] Chloride [Moles/Vol] 103 mmol/L Normal 98-109 [facility] Comment on above: Performed By: #### C BCA, 28443-6, PINR, 74338-3, 28236-8, 14674-8, 62868-4, THYR, 34600-9, CMP, 82272-6, 2156-6 #### [facility] ([id number]) [address] [place] [address] #### HA1C #### [facility] ([id number]) [address], [address] [place] [address] CO2 [Moles/Vol] 19 mmol/L Low 22-32 [facility] Comment on above: Performed By: #### C BCA, 33471-1, PINR, 10981-3, 83208-4, 30482-1, 69332-2, THYR, 64533-5, CMP, 34915-5, 7-6 #### [facility] ([id number]) [address] [place] [address] #### HA1C #### [facility] ([id number]) [address], [address] [place] [address] Creatinine [Mass/Vol] 0.72 mg/dL Normal 0.60-1.30 [facility] Comment on above: Result Comment: METH OD TRACEABLE TO IDMS STANDARD Performed By: #### C BCA, 71962-6, PINR, 52408-4, 10862-3, 00428-5, 10809-7, THYR, 60946-8, CMP, 67682-3, 2157-6 #### [facility] ([id number]) [address] [place] [address] #### HA1C #### [facility] ([id number]) [address] [facility] [facility] [address] [place] [address] GFR/1.73 sq M.predicted among non-blacks MDRD (S/P/Bld) [Vol rate/Area] 89 mL/min/{1.73_m2} Normal >59 [facility] Comment on above: Result Comment: Reported eGFR is based on the CKD-EPI 2020 equation that does not use a race coefficient. Performed By: #### C BCA, 05047-3, PINR, 36229-3, 85130-9, 33013-9, 32181-4, THYR, 81321-3, CMP, 47868-7, 2156-6 #### [facility] ([id number]) [address] [place] [address] #### HA1C #### [facility] ([id number]) [address] [place] [address], [address] [place] [address] Glucose [Mass/Vol] 208 mg/dL High 65-99 [facility] Comment on above: Performed By: #### C BCA, 33120-0, PINR, 45248-0, 15838-6, 41719-9, 04644-9, THYR, 12481-1, CMP, 44625-8, 2156-6 #### [facility] ([id number]) [address] [place] [address] #### HA1C #### [facility] ([id number]) [address] [place] [address], [address] [place] [address] Potassium [Moles/Vol] 4.2 mmol/L Normal 3.5-5.0 [facility] Comment on above: Performed By: #### C BCA, 61693-4, PINR, 76384-5, 40161-1, 44178-4, 61217-6, THYR, 04550-4, CMP, 08166-5, 2157-6 #### [facility] ([id number]) [address] [place] [place] [address] #### HA1C #### [facility] ([id number]) [address] [facility], [address] [place] [address] Protein [Mass/Vol] 6.6 g/dL Normal 6.0-8.0 [facility] Comment on above: Performed By: #### C BCA, 29886-2, PINR, 00479-5, 17445-0, 49460-6, 34641-8, THYR, 95010-4, CMP, 69286-8, 2156-6 #### [facility] ([id number]) [address] [place] [place] [address] #### HA1C #### [facility] ([id number]) [address] [facility], [address] [place] [address] Sodium [Moles/Vol] 135 mmol/L Normal 134-146 [facility] Comment on above: Performed By: #### C BCA, 66659-4, PINR, 83752-7, 97109-8, 88234-9, 76637-0, THYR, 00706-8, CMP, 68416-6, 2156-6 #### [facility] ([id number]) [address] [place] [address] #### HA1C #### [facility] ([id number]) [address], [address] [place] [address] Urea nitrogen [Mass/Vol] 18 mg/dL Normal 5-27 [facility] Comment on above: Performed By: #### C BCA, 32902-8, PINR, 77378-4, 32780-6, 00016-8, 25356-8, THYR, 30929-5, CMP, 75064-6, 2156-6 #### [facility] ([id number]) [address] [place] [address] #### HA1C #### [facility] ([id number]) [address], [address] [place] [address] DIFFERENTIALon 01-23-2024 ACANTHOCYTE 1+ Abnormal NONE [facility] Comment on above: Performed By: #### C BCA, 26668-8, PINR, 88543-9, 86148-3, 03825-2, 18969-6, THYR, 60984-4, CMP, 11839-8, 2156-6 #### [facility] ([id number]) [address] [place] [address] #### HA1C #### [facility] ([id number]) [address] [facility], [address] [place] [address] Anisocytosis Ql (Bld) 2+ Abnormal NONE [facility] Comment on above: Performed By: #### C BCA, 69130-4, PINR, 21642-0, 36500-2, 94686-5, 62232-3, THYR, 81703-7, CMP, 67371-8, 2156-6 #### [facility] ([id number]) [address] [place] [address] #### HA1C #### [facility] ([id number]) [address] [facility], [address] [place] [address] Band form neutrophils/100 WBC (Bld) 9.0 % Normal [facility] Comment on above: Performed By: #### C BCA, 07943-2, PINR, 89376-9, 72576-4, 82693-0, 87276-0, THYR, 21477-6, CMP, 69642-4, 2157-6 #### [facility] ([id number]) [address] [place] [place] [address] #### HA1C #### [facility] ([id number]) [address] [place] [address], [address] [place] [address] GEO 2+ Abnormal NONE [facility] Comment on above: Performed By: #### C BCA, 47069-8, PINR, 92200-8, 66639-8, 23053-8, 42610-0, THYR, 31552-7, CMP, 59918-6, 2156-6 #### [facility] ([id number]) [address] [place] [address] #### HA1C #### [facility] ([id number]) [address] [place] [address], [address] [place] [address] Eosinophils (Bld) [#/Vol] 0.1 10*3/uL Normal 0.0-0.4 [facility] Comment on above: Performed By: #### C BCA, 17236-0, PINR, 97003-0, 16164-0, 46567-9, 15046-0, THYR, 54760-8, CMP, 67596-7, 2156-6 #### [facility] ([id number]) [address] [place] [address] #### HA1C #### [facility] ([id number]) [address] [place] [address], [address] [place] [address] Eosinophils/100 WBC (Bld) 1.0 % Normal [facility] Comment on above: Performed By: #### C BCA, 37177-0, PINR, 78755-6, 84421-7, 98302-0, 83507-1, THYR, 77576-7, CMP, 51109-3, 2156-6 #### [facility] ([id number]) [address] [place] [address] #### HA1C #### [facility] ([id number]) [address], [address] [place] [address] FRAGMENT 1+ Abnormal [facility] Comment on above: Performed By: #### C BCA, 30782-6, PINR, 93530-8, 21653-3, 71626-7, 04274-1, THYR, 74858-6, CMP, 97145-7, 2157-6 #### [facility] ([id number]) [address] [place] [address] #### HA1C #### [facility] ([id number]) [address] [facility], [address] [place] [address] ARGUELLO-JOLLY BODY 1+ Abnormal NONE [facility] Comment on above: Performed By: #### C BCA, 52103-3, PINR, 39503-7, 86362-2, 42716-9, 86415-9, THYR, 70689-6, CMP, 76806-5, 7-6 #### [facility] ([id number]) [address] [place] [address] #### HA1C #### [facility] ([id number]) [address] [facility], [address] [place] [address] HYPOCHROMIA 1+ Abnormal [facility] Comment on above: Performed By: #### C BCA, 45452-2, PINR, 84692-9, 56158-5, 37485-0, 26483-3, THYR, 16113-4, CMP, 44537-0, 2157-6 #### [facility] ([id number]) [address] [place] [address] #### HA1C #### [facility] ([id number]) [address], [address] [place] [address] LYMPHOCYTE, ATYPICAL 1.0 % Normal [facility] Comment on above: Performed By: #### C BCA, 71071-3, PINR, 87194-6, 53421-6, 85348-7, 60447-6, THYR, 95101-4, CMP, 07486-5, 2156-6 #### [facility] ([id number]) [address] [place] [address] #### HA1C #### [facility] ([id number]) [address] [place] [address], [address] [place] [address] Lymphocytes (Bld) [#/Vol] 1.6 10*3/uL Normal 1.0-3.5 [facility] Comment on above: Performed By: #### C BCA, 51014-8, PINR, 46533-0, 72788-9, 43476-1, 96476-1, THYR, 10676-6, CMP, 74168-0, 2156-6 #### [facility] ([id number]) [address] [place] [address] #### HA1C #### [facility] ([id number]) [address] [place] [address], [address] [address] Lymphocytes/100 WBC (Bld) 12.0 % Normal [facility] Comment on above: Performed By: #### C BCA, 34620-7, PINR, 91619-7, 13194-4, 61305-9, 45592-8, THYR, 48633-0, CMP, 41405-9, 2156-6 #### [facility] ([id number]) [address] [place] [address] #### HA1C #### [facility] ([id number]) [address] [place] [address], [address] [place] [address] Monocytes (Bld) [#/Vol] 1.4 10*3/uL High 0-0.9 [facility] Comment on above: Performed By: #### C BCA, 62426-1, PINR, 79228-5, 57001-2, 86114-0, 13040-8, THYR, 51121-5, CMP, 05991-5, 2156-6 #### [facility] ([id number]) [address] [place] [place] [address] #### HA1C #### [facility] ([id number]) [address] [place] [address], [address] [place] [address] Monocytes/100 WBC (Bld) 11.0 % Normal [facility] Comment on above: Performed By: #### C BCA, 77337-7, PINR, 74175-0, 93480-7, 74969-6, 10292-1, THYR, 02163-5, CMP, 33232-6, 2156- #### [facility] ([id number]) [address] [place] [address] #### HA1C #### [facility] ([id number]) [address] [place] [address], [address] [place] [address] Neutrophils (Bld) [#/Vol] 9.2 10*3/uL High 1.5-6.6 [facility] Comment on above: Performed By: #### C BCA, 23687-0, PINR, 28774-5, 05083-4, 57017-1, 00315-7, THYR, 65240-3, CMP, 77360-7, 2156-12 #### [facility] ([id number]) [address] [place] [address] #### HA1C #### [facility] ([id number]) [address] [place] [address], [address] [place] [address] POLYCHROMASIA 1+ Abnormal NONE [facility] Comment on above: Performed By: #### C BCA, 53463-9, PINR, 26822-9, 52812-1, 89026-9, 94067-8, THYR, 87025-4, CMP, 18419-9, 2156-6 #### [facility] ([id number]) [address] [place] [address] #### HA1C #### [facility] ([id number]) [address], [address] [place] [address] SEG NEUTROPHIL 66.0 % Normal [facility] Comment on above: Performed By: #### C BCA, 42551-8, PINR, 10638-9, 64957-3, 32128-1, 25335-9, THYR, 79571-9, CMP, 14826-3, 2156- #### [facility] ([id number]) [address] [place] [address] #### HA1C #### [facility] ([id number]) [address] [facility], [address] [place] [address] SPHEROCYTE 1+ Abnormal NONE [facility] Comment on above: Performed By: #### C BCA, 99438-8, PINR, 80076-6, 90490-4, 13976-7, 76161-4, THYR, 60469-7, CMP, 21156-0, 2156-12 #### [facility] ([id number]) [address] [place] [address] #### HA1C #### [facility] ([id number]) [address], [address] [place] [address] TARGET 1+ Abnormal NONE [facility] Comment on above: Performed By: #### C BCA, 62172-4, PINR, 66069-7, 79014-5, 22792-1, 97280-2, THYR, 79883-7, CMP, 97126-6, 2156-12 #### [facility] ([id number]) [address] [place] [address] #### HA1C #### [facility] ([id number]) [address] [place] [address] Glucose Glucometer (BldC) [M ass/Vol]on 01-23-2024 Glucose [Mass/Vol] 274 mg/dL High 65-99 [facility] Glucose [Mass/Vol] 426 mg/dL Critically high 65-99 [facility] Glucose [Mass/Vol] 450 mg/dL Critically high 65-99 [facility] Glucose [Mass/Vol] 245 mg/dL High 65-99 [facility] Heparin unfractionated Chrom ogenic method Qn (PPP)on 01-23-2024 ANTI XA UFH 0.38 IU/mL Normal 0.30-0.70 [facility] Comment on above: Result Comment: Opti mal time for testing is 6 hrs post dosage This test is specific for monitoring patients on UFH, and is not recommended for use with other Anti-Xa medications. Performed By: #### C HEIDI, 72938-4, PINR, 40208-8, 57657-8, 52470-9, 32785-6, THYR, 00667-8, [facility], , 2156-12 #### [facility] ([id number]) [address] [place] [address] #### HA1C #### [facility] ([id number]) [address] [facility] [address] [place] [address] ANTI XA UFH 0.44 IU/mL Normal 0.30-0.70 [facility] Comment on above: Result Comment: Opti mal time for testing is 6 hrs post dosage This test is specific for monitoring patients on UFH, and is not recommended for use with other Anti-Xa medications. Performed By: #### C HEIDI, 93092-0, PINR, 69139-4, 98872-0, 25509-5, 19534-1, THYR, 53345-7, CMP, 43830-2, 2156- #### [facility] ([id number]) [address] [place] [address] #### HA1C #### [facility] ([id number]) [address], [address] [place] [address] MAGNESIUMon 01-23-2024 Magnesium [Mass/Vol] 1.8 mg/dL Normal 1.8-2.6 [facility] Comment on above: Performed By: #### C BCA, 42309-8, PINR, 79515-3, 25056-2, 99113-9, 12931-3, THYR, 00329-7, CMP, 02160-7, 2157-6 #### [facility] ([id number]) [address] [place] [address] #### HA1C #### [facility] ([id number]) [address], [address] [place] [address] CBC AND AUTO DIFFon 01-22-20 24 ACANTHOCYTE 1+ Abnormal NONE [facility] Comment on above: Performed By: #### C HEIDI, 67818-3, PINR, 63695-4, 89631-7, 25754-3, 65748-8, THYR, 68796-8, CMP, 33179-4, 2156-6 #### [facility] ([id number]) [address] [place] [address] #### HA1C #### [facility] ([id number]) [address], [address] [place] [address] Anisocytosis Ql (Bld) 2+ Abnormal NONE [facility] Comment on above: Performed By: #### C BCA, 73876-3, PINR, 89220-0, 59194-0, 13836-6, 22636-0, THYR, 99055-8, CMP, 22401-7, 2156-6 #### [facility] ([id number]) [address] [place] [address] #### HA1C #### [facility] ([id number]) [address], [address] [place] [address] Band form neutrophils/100 WBC (Bld) 7.0 % Normal [facility] Comment on above: Performed By: #### C BCA, 11845-1, PINR, 51670-0, 45108-6, 05370-7, 77396-4, THYR, 35963-5, CMP, 56937-9, 7-6 #### [facility] ([id number]) [address] [place] [address] #### HA1C #### [facility] ([id number]) [address] [address] [place] [address] GEO 1+ Abnormal NONE [facility] Comment on above: Performed By: #### C BCA, 23108-4, PINR, 00505-6, 67127-6, 90704-2, 54161-7, THYR, 76727-0, CMP, 16885-9, 2156-6 #### [facility] ([id number]) [address] [place] [address] #### HA1C #### [facility] ([id number]) [address] [facility] [place] [address] Eosinophils (Bld) [#/Vol] 0.6 10*3/uL High 0.0-0.4 [facility] Comment on above: Performed By: #### C BCA, 60528-7, PINR, 11642-5, 11518-0, 55578-7, 82835-5, THYR, 30713-3, CMP, 02040-2, 2156-6 #### [facility] ([id number]) [address] [place] [address] #### HA1C #### [facility] ([id number]) [address] [facility] [facility] [place] [address] Eosinophils/100 WBC (Bld) 7.0 % Normal [facility] Comment on above: Performed By: #### C BCA, 45742-3, PINR, 26183-4, 92311-7, 37456-9, 77753-0, THYR, 13725-4, CMP, 20180-0, 2157-6 #### [facility] ([id number]) [address] [place], [place] [address] #### HA1C #### [facility] ([id number]) [address], [address] [place] [address] Erythrocyte distribution width (RBC) [Ratio] 19.3 % High 11.5-15.0 [facility] Comment on above: Performed By: #### C BCA, 02500-6, PINR, 27355-2, 46443-0, 79637-3, 47849-6, THYR, 96408-5, CMP, 36475-3, 2156-6 #### [facility] ([id number]) [address] [place] [place] [address] #### HA1C #### [facility] ([id number]) [address], [address] [place] [address] FRAGMENT 1+ Abnormal NONE [facility] Comment on above: Performed By: #### C BCA, 40046-2, PINR, 59045-0, 07568-7, 99518-3, 49679-8, THYR, 16287-6, CMP, 50342-4, 2156-6 #### [facility] ([id number]) [address] [place] [place] [address] #### HA1C #### [facility] ([id number]) [address] [facility] [place] [address] Hematocrit (Bld) [Volume fraction] 29.9 % Low 39-49 [facility] Comment on above: Performed By: #### C BCA, 00206-3, PINR, 55662-2, 32871-9, 80042-9, 42059-1, THYR, 54604-1, CMP, 45070-8, 215-6 #### [facility] ([id number]) [address] [place] [address] #### HA1C #### [facility] ([id number]) [address], [address] [place] [address] Hemoglobin (Bld) [Mass/Vol] 10.0 g/dL Low 13.0-17.0 [facility] Comment on above: Performed By: #### C BCA, 61815-2, PINR, 59277-8, 78021-7, 25826-4, 93646-0, THYR, 46485-2, CMP, 66963-8, 2157-6 #### [facility] ([id number]) [address] [place] [address] #### HA1C #### [facility] ([id number]) [address], [address] [place] [address] ARGUELLO-JOLLY BODY 1+ Abnormal NONE [facility] Comment on above: Performed By: #### C BCA, 25861-4, PINR, 91082-9, 63494-9, 27904-3, 44332-1, THYR, 04240-9, CMP, 74760-8, 7-6 #### [facility] ([id number]) [address] [place] [address] #### HA1C #### [facility] ([id number]) [address], [address] [place] [address] HYPOCHROMIA 1+ Abnormal NONE [facility] Comment on above: Performed By: #### C BCA, 29331-3, PINR, 18159-5, 81920-3, 16767-3, 40590-1, THYR, 74030-0, CMP, 33051-3, 2157-6 #### [facility] ([id number]) [address] [place] [address] #### HA1C #### [facility] ([id number]) [address], [address] [place] [address] Lymphocytes (Bld) [#/Vol] 1.9 10*3/uL Normal 1.0-3.5 [facility] Comment on above: Performed By: #### C BCA, 91030-8, PINR, 79537-3, 85445-8, 13836-0, 94517-0, THYR, 01167-3, CMP, 14306-3, 2157-6 #### [facility] ([id number]) [address] [place] [address] #### HA1C #### [facility] ([id number]) [address], [address] [place] [address] Lymphocytes/100 WBC (Bld) 23.0 % Normal [facility] Comment on above: Performed By: #### C BCA, 88416-3, PINR, 64113-7, 67517-5, 71297-9, 93508-1, THYR, 38755-3, CMP, 44197-2, 2156-6 #### [facility] ([id number]) [address] [place] [address] #### HA1C #### [facility] ([id number]) [address], [address] [place] [address] MCH (RBC) [Entitic mass] 24.8 pg Low 27-34 [facility] Comment on above: Performed By: #### C BCA, 81099-8, PINR, 75604-1, 95811-9, 13735-5, 97396-8, THYR, 65847-2, CMP, 78218-2, 2156-6 #### [facility] ([id number]) [address] [place] [address] #### HA1C #### [facility] ([id number]) [address], [address] [place] [address] MCHC (RBC) [Mass/Vol] 33.4 g/dL Normal 32-36 [facility] Comment on above: Performed By: #### C BCA, 79371-8, PINR, 93221-1, 57735-1, 91967-7, 80174-5, THYR, 89205-9, CMP, 82674-6, 2156-6 #### [facility] ([id number]) [address] [place] [address] #### HA1C #### [facility] ([id number]) [address] [facility], [address] [place] [address] MCV (RBC) [Entitic vol] 74 fL Low 80-100 [facility] Comment on above: Performed By: #### C BCA, 97732-1, PINR, 61590-5, 44076-6, 74663-6, 85787-5, THYR, 60639-5, CMP, 06835-3, 2156- #### [facility] ([id number]) [address] [place] [address] #### HA1C #### [facility] ([id number]) [address] [place] [address], [address] [place] [address] Monocytes (Bld) [#/Vol] 0.6 10*3/uL Normal 0-0.9 [facility] Comment on above: Performed By: #### C BCA, 66886-3, PINR, 09520-3, 35980-6, 51175-9, 67415-7, THYR, 43183-5, CMP, 43803-2, 2156- #### [facility] ([id number]) [address] [place] [address] #### HA1C #### [facility] ([id number]) [address] [place] [address], [address] [place] [address] Monocytes/100 WBC (Bld) 7.0 % Normal [facility] Comment on above: Performed By: #### C BCA, 47484-0, PINR, 74204-8, 82170-9, 64894-9, 59561-5, THYR, 26285-7, CMP, 69820-4, 2157-6 #### [facility] ([id number]) [address] [place] [address] #### HA1C #### [facility] ([id number]) [address] [place] [address], [address] [place] [address] Neutrophils (Bld) [#/Vol] 5.1 10*3/uL Normal 1.5-6.6 [facility] Comment on above: Performed By: #### C BCA, 67080-9, PINR, 94584-1, 99777-7, 91126-5, 09468-7, THYR, 78055-7, CMP, 26879-6, 7-6 #### [facility] ([id number]) [address] [place] [address] #### HA1C #### [facility] ([id number]) [address] [place] [address], [address] [place] [address] Platelet mean volume (Bld) [Entitic vol] 10.1 fL Normal 7-12 [facility] Comment on above: Performed By: #### C BCA, 41741-8, PINR, 43985-7, 67647-8, 24891-4, 48440-0, THYR, 75230-9, CMP, 16918-1, 7-6 #### [facility] ([id number]) [address] [place] [address] #### HA1C #### [facility] ([id number]) [address] [place] [address], [address] [place] [address] Platelets (Bld) [#/Vol] 228 10*3/uL Normal 150-450 [facility] Comment on above: Performed By: #### C BCA, 13348-2, PINR, 83686-4, 57630-3, 33709-6, 45149-5, THYR, 71448-9, CMP, 67607-5, 2157-6 #### [facility] ([id number]) [address] [place] [address] #### HA1C #### [facility] ([id number]) [address] [facility], [address] [place] [address] POLYCHROMASIA 1+ Abnormal NONE [facility] Comment on above: Performed By: #### C BCA, 82664-7, PINR, 13950-6, 32289-7, 04835-3, 87616-3, THYR, 13081-2, CMP, 05592-1, 7-6 #### [facility] ([id number]) [address] [place] [address] #### HA1C #### [facility] ([id number]) [address] [facility], [address] [place] [address] RBC COUNT 4.03 X10E12/L Low 4.10-5.70 [facility] Comment on above: Performed By: #### C BCA, 69870-1, PINR, 09199-0, 17869-3, 90657-8, 57093-2, THYR, 56093-6, CMP, 82176-4, 2156-6 #### [facility] ([id number]) [address] [place] [address] #### HA1C #### [facility] ([id number]) [address] [facility], [address] [place] [address] SEG NEUTROPHIL 56.0 % Normal [facility] Comment on above: Performed By: #### C BCA, 97381-2, PINR, 38996-2, 54926-3, 49537-0, 66509-0, THYR, 39625-6, CMP, 39814-1, 2157-6 #### [facility] ([id number]) [address] [place] [address] #### HA1C #### [facility] ([id number]) [address], [address] [place] [address] SPHEROCYTE 1+ Abnormal NONE [facility] Comment on above: Performed By: #### C BCA, 39735-6, PINR, 41581-2, 82978-2, 40957-8, 79352-6, THYR, 33354-6, CMP, 71207-4, 2157-6 #### [facility] ([id number]) [address] [id number] #### HA1C #### [facility] ([id number]) [address] [facility], [address] [place] [address] TARGET 1+ Abnormal NONE [facility] Comment on above: Performed By: #### C BCA, 38259-8, PINR, 41404-0, 63623-8, 21427-6, 30944-9, THYR, 04090-3, CMP, 53508-9, 2156-6 #### [facility] ([id number]) [address] [place] [address] #### HA1C #### [facility] ([id number]) [address] [facility], [address] [place] [address] WBC (Bld) [#/Vol] 8.2 10*3/uL Normal 4.0-11.0 [facility] Comment on above: Performed By: #### C BCA, 92925-0, PINR, 33089-5, 38285-2, 15415-9, 86421-2, THYR, 52864-8, CMP, 78271-1, 7-6 #### [facility] ([id number]) [address] [place] [address] #### HA1C #### [facility] ([id number]) [address], [address] [place] [address] CK [Catalytic activity/Vol]o n 01-22-2024 CPK 1221 U/L High 24-195 [facility] Comment on above: Performed By: #### C BCA, 51361-2, PINR, 55775-4, 48696-5, 41741-5, 48756-8, THYR, 96694-6, CMP, 64379-5, 2157-6 #### [facility] ([id number]) [address] [place] [address] #### HA1C #### [facility] ([id number]) [address] [place] [address], [address] [place] [address] CPK 1777 U/L High 24-195 [facility] Comment on above: Performed By: #### C BCA, 45122-1, PINR, 95077-4, 71911-8, 53693-7, 30124-3, THYR, 59520-9, CMP, 97683-2, 2157-6 #### [facility] ([id number]) [address] [place] [address] #### HA1C #### [facility] ([id number]) [address] [place] [address], [address] [place] [address] CPK 1972 U/L High 24-195 [facility] Comment on above: Performed By: #### C BCA, 28102-9, PINR, 07272-5, 25955-9, 73308-1, 34072-5, THYR, 96074-2, CMP, 11298-7, 2157-6 #### [facility] ([id number]) [address] [place] [address] #### HA1C #### [facility] ([id number]) [address] [place] [address], [address] [place] [address] COMPREHENSIVE METABOLIC PANE Jairo 01-22-2024 Albumin [Mass/Vol] 3.4 g/dL Normal 3.2-5.3 [facility] Comment on above: Performed By: #### C BCA, 25069-4, PINR, 67777-2, 09947-1, 94328-2, 02228-0, THYR, 82271-8, CMP, 83958-7, 2157-6 #### [facility] ([id number]) [address] [place] [address] #### HA1C #### [facility] ([id number]) [address] [facility], [address] [place] [address] ALP [Catalytic activity/Vol] 109 U/L Normal 39-130 [facility] Comment on above: Performed By: #### C BCA, 27210-6, PINR, 74506-4, 05800-6, 82045-2, 95864-7, THYR, 35579-1, CMP, 04289-8, 7-6 #### [facility] ([id number]) [address] [place] [address] #### HA1C #### [facility] ([id number]) [address] [facility], [address] [place] [address] ALT [Catalytic activity/Vol] 27 U/L Normal 0-40 [facility] Comment on above: Performed By: #### C BCA, 06031-6, PINR, 63990-3, 69807-4, 81051-4, 97728-1, THYR, 70264-2, CMP, 02302-6, 7-6 #### [facility] ([id number]) [address] [place] [address] #### HA1C #### [facility] ([id number]) [address] [facility], [address] [place] [address] Anion gap [Moles/Vol] 10 mmol/L Normal 5-15 [facility] Comment on above: Performed By: #### C BCA, 05702-4, PINR, 90960-6, 32761-2, 50282-8, 86991-7, THYR, 06890-7, CMP, 63592-3, 2156-6 #### [facility] ([id number]) [address] [place] [place] [address] #### HA1C #### [facility] ([id number]) [address] [place] [address], [address] [place] [address] AST [Catalytic activity/Vol] 69 U/L High 0-41 [facility] Comment on above: Performed By: #### C BCA, 56406-0, PINR, 78520-3, 52652-8, 16048-8, 83086-9, THYR, 65167-9, CMP, 90719-9, 2156-6 #### [facility] ([id number]) [address] [place] [address] #### HA1C #### [facility] ([id number]) [address] [place] [address], [address] [place] [address] Bilirubin [Mass/Vol] 0.6 mg/dL Normal 0.3-1.2 [facility] Comment on above: Performed By: #### C BCA, 09020-9, PINR, 71010-2, 66284-2, 61697-4, 43326-0, THYR, 01783-2, CMP, 24908-3, 2156-12 #### [facility] ([id number]) [address] [place] [address] #### HA1C #### [facility] ([id number]) [address] [place] [address], [address] [place] [address] Calcium [Mass/Vol] 8.2 mg/dL Low 8.5-10.5 [facility] Comment on above: Performed By: #### C BCA, 32613-0, PINR, 35432-3, 73521-8, 97102-4, 30899-7, THYR, 53274-8, CMP, 73598-8, 2156-6 #### [facility] ([id number]) [address] [place] [address] #### HA1C #### [facility] ([id number]) [address], [address] [place] [address] Chloride [Moles/Vol] 105 mmol/L Normal 98-109 [facility] Comment on above: Performed By: #### C BCA, 82583-7, PINR, 74712-7, 03647-5, 76042-3, 32711-1, THYR, 95888-0, CMP, 40119-7, 2157-6 #### [facility] ([id number]) [address] [place] [address] #### HA1C #### [facility] ([id number]) [address] [facility], [address] [place] [address] CO2 [Moles/Vol] 20 mmol/L Low 22-32 [facility] Comment on above: Performed By: #### C BCA, 35104-1, PINR, 48667-5, 24636-9, 23758-1, 16378-7, THYR, 54730-8, CMP, 28232-0, 2156-6 #### [facility] ([id number]) [address] [address] #### HA1C #### [facility] ([id number]) [address] [facility], [address] [place] [address] Creatinine [Mass/Vol] 0.79 mg/dL Normal 0.60-1.30 [facility] Comment on above: Result Comment: METH OD TRACEABLE TO IDMS STANDARD Performed By: #### C BCA, 67616-8, PINR, 90836-6, 93899-0, 47216-9, 11340-6, THYR, 41941-9, CMP, 01473-4, 7-6 #### [facility] ([id number]) [address] [place] [address] #### HA1C #### [facility] ([id number]) [address] [facility] [place] [address] GFR/1.73 sq M.predicted among non-blacks MDRD (S/P/Bld) [Vol rate/Area] 87 mL/min/{1.73_m2} Normal >59 [facility] Comment on above: Result Comment: Reported eGFR is based on the CKD-EPI 2020 equation that does not use a race coefficient. Performed By: #### C BCA, 54755-8, PINR, 32805-9, 19795-4, 42882-6, 59308-9, THYR, 14516-8, CMP, 53646-1, 2156-6 #### [facility] ([id number]) [address] [place] [address] #### HA1C #### [facility] ([id number]) [address] [facility], [address] [place] [address] Glucose [Mass/Vol] 189 mg/dL High 65-99 [facility] Comment on above: Performed By: #### C BCA, 75717-3, PINR, 98451-8, 33883-3, 28657-3, 32885-2, THYR, 02213-9, CMP, 37237-2, 2156-6 #### [facility] ([id number]) [address] [place] [address] #### HA1C #### [facility] ([id number]) [address] [facility], [address] [place] [address] Potassium [Moles/Vol] 4.3 mmol/L Normal 3.5-5.0 [facility] Comment on above: Performed By: #### C BCA, 66053-9, PINR, 84021-3, 62212-0, 54581-4, 83738-3, THYR, 99116-1, CMP, 84778-9, 7-6 #### [facility] ([id number]) [address] [place] [address] #### HA1C #### [facility] ([id number]) [address], [address] [place] [address] Protein [Mass/Vol] 6.1 g/dL Normal 6.0-8.0 [facility] Comment on above: Performed By: #### C BCA, 55928-2, PINR, 83212-7, 65384-9, 94005-4, 40791-3, THYR, 16980-3, CMP, 27846-2, 2157-6 #### [facility] ([id number]) [address] [place] [address] #### HA1C #### [facility] ([id number]) [address] [facility], [address] [place] [address] Sodium [Moles/Vol] 135 mmol/L Normal 134-146 [facility] Comment on above: Performed By: #### C BCA, 24485-8, PINR, 44101-1, 45466-0, 61078-1, 95794-1, THYR, 46022-0, CMP, 58254-4, 2156-6 #### [facility] ([id number]) [address] [place] [address] #### HA1C #### [facility] ([id number]) [address] [facility], [address] [place] [address] Urea nitrogen [Mass/Vol] 21 mg/dL Normal 5-27 [facility] Comment on above: Performed By: #### C BCA, 52237-0, PINR, 65891-0, 44766-6, 86117-3, 46493-0, THYR, 18079-5, CMP, 30113-7, 7-6 #### [facility] ([id number]) [address] [place] [address] #### HA1C #### [facility] ([id number]) [address] [facility], [address] [place] [address] Glucose Glucometer (BldC) [M ass/Vol]on 01-22-2024 Glucose [Mass/Vol] 155 mg/dL High 65-99 [facility] Glucose [Mass/Vol] 238 mg/dL High 65-99 [facility] Glucose [Mass/Vol] 413 mg/dL Critically high 65-99 [facility] Glucose [Mass/Vol] 218 mg/dL High 65-99 [facility] Heparin unfractionated Chrom ogenic method Qn (PPP)on 01-22-2024 ANTI XA UFH 0.28 IU/mL Low 0.30-0.70 [facility] Comment on above: Result Comment: Opti mal time for testing is 6 hrs post dosage This test is specific for monitoring patients on UFH, and is not recommended for use with other Anti-Xa medications. Performed By: #### C HEIDI, 93490-6, PINR, 46718-9, 44788-6, 03938-3, 49275-5, THYR, 49638-6, CMP, 86884-4, 2156-12 #### [facility] ([id number]) [address] [place] [address] #### HA1C #### [facility] ([id number]) [address] [place] [address] [address] [place] [address] ANTI XA UFH 0.24 IU/mL Low 0.30-0.70 [facility] Comment on above: Result Comment: Opti mal time for testing is 6 hrs post dosage This test is specific for monitoring patients on UFH, and is not recommended for use with other Anti-Xa medications. Performed By: #### C HEIDI, 95592-3, PINR, 30122-1, 91281-8, 13928-7, 08002-4, THYR, 56819-3, CMP, 22885-3, 2156-12 #### [facility] ([id number]) [address] [place] [address] #### HA1C #### [facility] ([id number]) [address] [place] [address] [address] [place] [address] ANTI XA UFH 0.23 IU/mL Low 0.30-0.70 [facility] Comment on above: Result Comment: Opti mal time for testing is 6 hrs post dosage This test is specific for monitoring patients on UFH, and is not recommended for use with other Anti-Xa medications. Performed By: #### C BCA, 09277-4, PINR, 14676-5, 17675-4, 66056-7, 35702-4, THYR, 06316-2, CMP, 60977-9, 7-6 #### [facility] ([id number]) [address] [place] [address] #### HA1C #### [facility] ([id number]) [address] [place] [address], [address] [place] [address] Lipid 1996 panelon 4 Cholesterol [Mass/Vol] 97 mg/dL Low 150-200 Pr [facility] Comment on above: Performed By: #### C BCA, 30860-4, PINR, 12275-4, 46258-2, 08438-1, 95696-3, THYR, 96978-0, CMP, 01896-7, 2156-6 #### [facility] ([id number]) [address] [place] [address] #### HA1C #### [facility] ([id number]) [address] [place] [address], [address] [place] [address] Cholesterol in HDL [Mass/Vol] 50 mg/dL Normal >39 [facility] Comment on above: Result Comment: HDL <40 mg/dL - High Risk HDL > or = 40mg/dL- Desirable HDL >60 mg/dL - Negative Risk Performed By: #### C BCA, 76897-4, PINR, 97375-3, 05560-9, 85906-4, 12397-7, THYR, 20947-1, CMP, 24079-9, 2157-6 #### [facility] ([id number]) [address] [place] [address] #### HA1C #### [facility] ([id number]) [address] [facility], [address] [place] [address] Cholesterol in LDL [Mass/Vol] 39 mg/dL Normal <130 [facility] Comment on above: Result Comment: LDL <100 mg/dL - Desirable LDL >160 mg/dL - High Risk Performed By: #### C BCA, 50050-8, PINR, 63496-4, 57128-3, 57772-8, 60311-9, THYR, 51634-8, CMP, 40698-6, 2157-6 #### [facility] ([id number]) [address] [place] [address] #### HA1C #### [facility] ([id number]) [address] [place] [address], [address] [place] [address] Cholesterol in VLDL [Mass/Vol] 8 mg/dL Normal 0-30 [facility] Comment on above: Performed By: #### C BCA, 96902-8, PINR, 22890-1, 51503-1, 22631-8, 66170-4, THYR, 11405-9, CMP, 86390-6, 2157-6 #### [facility] ([id number]) [address] [place] [address] #### HA1C #### [facility] ([id number]) [address] [place] [address], [address] [place] [address] CHOLESTEROL:HDL 1.9 Normal 1.0-5.0 [facility] Comment on above: Performed By: #### C BCA, 89543-3, PINR, 36049-9, 03393-5, 96943-3, 46073-8, THYR, 26530-4, CMP, 34416-0, 2156- #### [facility] ([id number]) [address] [place] [address] #### HA1C #### [facility] ([id number]) [address] [place] [address], [address] [place] [address] Triglyceride [Mass/Vol] 38 mg/dL Normal 27-150 [facility] Comment on above: Performed By: #### C BCA, 38284-4, PINR, 32241-6, 53455-8, 57094-3, 19397-9, THYR, 51060-2, CMP, 90697-6, 2156- #### [facility] ([id number]) [address] [place] [address] #### HA1C #### [facility] ([id number]) [address] [place] [address], [address] [place] [address] MAGNESIUMon 01-22-2024 Magnesium [Mass/Vol] 2.0 mg/dL Normal 1.8-2.6 [facility] Comment on above: Performed By: #### C BCA, 52973-8, PINR, 94791-6, 96126-0, 24866-0, 68121-9, THYR, 74727-5, CMP, 08327-7, 2156-12 #### [facility] ([id number]) [address] [place] [address] #### HA1C #### [facility] ([id number]) [address] [place] [address], [address] [place] [address] Magnesium [Mass/Vol] 2.2 mg/dL Normal 1.8-2.6 [facility] Comment on above: Performed By: #### C BCA, 21931-0, PINR, 33225-5, 76578-4, 97729-9, 19157-7, THYR, 58897-2, CMP, 70592-3, 2157-6 #### [facility] ([id number]) [address] [place] [address] #### HA1C #### [facility] ([id number]) [address] [place] [address], [address] [place] [address] Procalcitonin IA [Mass/Vol]o n 01-22-2024 PROCALCITONIN 0.08 ng/mL High <0.05 [facility] Comment on above: Result Comment: NOTE <0.50 ng/mL - Low risk of severe sepsis and/or septic shock. <2.00 ng/mL - Recommend retesting within 6-24 hours. >2.00 ng/mL - High risk of sepsis and/or septic shock. Performed By: #### C BCA, 32621-8, PINR, 05570-5, 58136-3, 70651-6, 59538-7, THYR, 79005-6, CMP, 95726-3, 2157-6 #### [facility] ([id number]) [address] [place] [address] #### HA1C #### [facility] ([id number]) [address] [place] [address], [address] [place] [address] Troponin I.cardiac High sens itivity method [Mass/Vol]on 01-22-2024 3 HOUR TROP I, HIGH SENSITIVITY 54 ng/L High <21 [facility] Comment on above: Result Comment: Elevations of hs-Troponin may be due to causes other than myocardial ischemia. Recommend serial hs-Troponin testing be performed. For the initial evaluation and management of chest pain patients, refer to the algorithms linked below. Emergency Patient: [email or web address] Inpatient: [email or web address] Performed By: #### C BCA, 50862-4, PINR, 42454-6, 67895-0, 91128-5, 21383-8, THYR, 48073-4, CMP, 63822-2, 2157-6 #### [facility] ([id number]) [address] [place] [address] #### HA1C #### [facility] ([id number]) [address] [facility], [address] [place] [address] 3 HOUR TROP I, HIGH SENSITIVITY 75 ng/L High <21 [facility] Comment on above: Result Comment: Elevations of hs-Troponin may be due to causes other than myocardial ischemia. Recommend serial hs-Troponin testing be performed. For the initial evaluation and management of chest pain patients, refer to the algorithms linked below. Emergency Patient: [email or web address] Inpatient: [email or web address] Performed By: #### C BCA, 31195-1, PINR, 00737-3, 27749-5, 63970-1, 21036-4, THYR, 55026-7, CMP, 37406-5, 2157-6 #### [facility] ([id number]) [address] [place] [address] #### HA1C #### [facility] ([id number]) [address] [facility], [address] [place] [address] XR WRIST LT MIN 3 VWSon 07 XR WRIST LT MIN 3 VWS XR WRIST LT MIN 3 VWS History: Trauma. Exam/Technique: AP lateral oblique and scaphoid view. Comparison: None. Findings: Osteopenic bones. Underlying degenerative changes. Fragmentation around the ulna styloid and the distal radial styloid process are likely reflecting an acute fracture on a background of chronic previous trauma. Evidence of chondrocalcinosis. Lucency projected over the thenar eminence and the first metacarpal on the volar aspect likely reflects the presence of a soft tissue lipoma. This is likely incidental. Soft tissue swelling noted. IMPRESSION: Likely fracture of an acute nature or subacute nature through the radial styloid and the ulna styloid. There is a background of degenerative changes. 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 Finalized by Liam Cody MD on 01/22/2024 10:33 PM Normal [facility] BLOOD CULTUREon 01-21-2024 Bacteria identified Aer cx Nom (Bld) CULTURE RESULTS NO GROWTH 5 DAYS Normal [facility] Bacteria identified Aer cx Nom (Bld) CULTURE RESULTS NO GROWTH 5 DAYS Normal [facility] CBC AND AUTO DIFFon 01-21-20 ABSOLUTE BASOPHIL 0.1 X10E9/L Normal 0.0-0.2 [facility] Comment on above: Performed By: #### C BCA, 51609-0, PINR, 78868-1, 55593-6, 04684-0, 58449-9, THYR, 43814-8, CMP, 69630-3, 2157-6 #### [facility] ([id number]) [address] [place] [address] #### HA1C #### [facility] ([id number]) [address] [place] [address], [address] [place] [address] ABSOLUTE NEUTROPHIL 7.7 X10E9/L High 1.5-6.6 [facility] Comment on above: Performed By: #### C BCA, 97708-7, PINR, 16499-1, 98237-6, 18031-2, 53591-0, THYR, 31178-3, CMP, 76676-5, 2157-6 #### [facility] ([id number]) [address] [place] [address] 8[address] #### HA1C #### [facility] ([id number]) [address] [place] [address], [address] [place] [address] Anisocytosis Ql (Bld) 2+ Abnormal NONE [facility] Comment on above: Performed By: #### C BCA, 86763-5, PINR, 55984-0, 59858-2, 87987-2, 04743-3, THYR, 53986-1, CMP, 26523-7, 2157-6 #### [facility] ([id number]) [address] [place] [address] #### HA1C #### [facility] ([id number]) [address] [facility], [address] [place] [address] Basophils/100 WBC (Bld) 0.8 % Normal [facility] Comment on above: Performed By: #### C BCA, 55502-0, PINR, 72317-1, 75591-9, 24179-6, 81296-7, THYR, 89972-2, CMP, 18671-5, 7-6 #### [facility] ([id number]) [address] [place] [address] #### HA1C #### [facility] ([id number]) [address] [facility], [address] [place] [address] GEO 1+ Abnormal NONE [facility] Comment on above: Performed By: #### C BCA, 68770-3, PINR, 14441-2, 97582-7, 24597-5, 57598-5, THYR, 93969-9, CMP, 09979-4, 2156-6 #### [facility] ([id number]) [address] [place] [address] #### HA1C #### [facility] ([id number]) [address] [facility], [address] [place] [address] Eosinophils (Bld) [#/Vol] 0.1 10*3/uL Normal 0.0-0.4 [facility] Comment on above: Performed By: #### C BCA, 97917-4, PINR, 36817-5, 86330-9, 18901-8, 71930-5, THYR, 51852-6, CMP, 70627-5, 2156- #### [facility] ([id number]) [address] [place] [address] #### HA1C #### [facility] ([id number]) [address] [place] [address], [address] [place] [address] Eosinophils/100 WBC (Bld) 0.7 % Normal [facility] Comment on above: Performed By: #### C BCA, 18465-4, PINR, 72075-9, 58489-3, 35061-0, 91860-1, THYR, 47887-1, CMP, 11221-1, 2156- #### [facility] ([id number]) [address] [place] [place] [address] #### HA1C #### [facility] ([id number]) [address] [place] [address], [address] [place] [address] Erythrocyte distribution width (RBC) [Ratio] 19.9 % High 11.5-15.0 [facility] Comment on above: Performed By: #### C BCA, 37638-0, PINR, 10458-2, 83825-0, 87360-9, 99007-7, THYR, 04320-0, CMP, 32070-2, 2156- #### [facility] ([id number]) [address] [place] [address] #### HA1C #### [facility] ([id number]) [address] [place] [address], [address] [place] [address] FRAGMENT 1+ Abnormal NONE [facility] Comment on above: Performed By: #### C BCA, 23181-4, PINR, 66514-9, 64428-1, 53826-0, 44740-1, THYR, 26249-1, CMP, 38890-7, 2156-6 #### [facility] ([id number]) [address] [place], [place] [address] #### HA1C #### [facility] ([id number]) [address], [address] [place] [address] Hematocrit (Bld) [Volume fraction] 31.3 % Low 39-49 [facility] Comment on above: Performed By: #### C BCA, 15595-1, PINR, 10847-8, 78233-8, 96917-6, 02616-6, THYR, 34956-4, CMP, 86305-7, 2156-6 #### [facility] ([id number]) [address] [place] [place] [address] #### HA1C #### [facility] ([id number]) [address] [facility], [address] [place] [address] Hemoglobin (Bld) [Mass/Vol] 10.5 g/dL Low 13.0-17.0 [facility] Comment on above: Performed By: #### C BCA, 35558-1, PINR, 34005-5, 66109-2, 43657-9, 72757-7, THYR, 01401-1, CMP, 13144-8, 2156-6 #### [facility] ([id number]) [address] [place] [address] #### HA1C #### [facility] ([id number]) [address], [address] [place] [address] HYPOCHROMIA 1+ Abnormal NONE [facility] Comment on above: Performed By: #### C BCA, 83925-4, PINR, 50078-0, 69131-0, 51405-2, 70156-6, THYR, 70134-8, CMP, 27686-8, 2156-6 #### [facility] ([id number]) [address] [place], [place] [address] #### HA1C #### [facility] ([id number]) [address], [address] [place] [address] Lymphocytes (Bld) [#/Vol] 1.2 10*3/uL Normal 1.0-3.5 [facility] Comment on above: Performed By: #### C BCA, 26621-4, PINR, 82702-4, 69265-6, 60913-9, 88216-5, THYR, 75862-4, CMP, 65775-0, 2156-6 #### [facility] ([id number]) [address] [place], [place] [address] #### HA1C #### [facility] ([id number]) [address], [address] [place] [address] Lymphocytes/100 WBC (Bld) 11.9 % Normal [facility] Comment on above: Performed By: #### C BCA, 93243-8, PINR, 24492-8, 52319-1, 47419-8, 96530-9, THYR, 17873-1, CMP, 16760-6, 2156- #### [facility] ([id number]) [address] [place] [address] #### HA1C #### [facility] ([id number]) [address], [address] [place] [address] MCH (RBC) [Entitic mass] 24.8 pg Low 27-34 [facility] Comment on above: Performed By: #### C BCA, 10114-8, PINR, 00410-9, 25873-2, 15395-9, 97628-0, THYR, 21270-2, CMP, 70847-6, 2156- #### [facility] ([id number]) [address] [place] [address] #### HA1C #### [facility] ([id number]) [address], [address] [place] [address] MCHC (RBC) [Mass/Vol] 33.6 g/dL Normal 32-36 [facility] Comment on above: Performed By: #### C BCA, 54349-4, PINR, 95733-8, 74124-9, 53712-5, 54626-4, THYR, 06915-4, CMP, 42747-6, 2157-6 #### [facility] ([id number]) [address] [place] [address] #### HA1C #### [facility] ([id number]) [address] [facility], [address] [place] [address] MCV (RBC) [Entitic vol] 74 fL Low 80-100 [facility] Comment on above: Performed By: #### C HEIDI, 74228-6, PINR, 77874-5, 91107-4, 73883-7, 66472-0, THYR, 98870-2, CMP, 40873-8, 2156-6 #### [facility] ([id number]) [address] [place] [address] #### HA1C #### [facility] ([id number]) [address] [facility], [address] [place] [address] Monocytes (Bld) [#/Vol] 1.2 10*3/uL High 0-0.9 [facility] Comment on above: Performed By: #### C BCA, 45479-8, PINR, 76616-2, 67855-2, 76346-2, 04586-1, THYR, 04205-1, CMP, 88522-8, 2156- #### [facility] ([id number]) [address] [place] [address] #### HA1C #### [facility] ([id number]) [address] [facility], [address] [place] [address] Monocytes/100 WBC (Bld) 12.0 % Normal [facility] Comment on above: Performed By: #### C BCA, 38333-2, PINR, 43111-7, 11579-9, 09869-0, 52924-8, THYR, 74595-3, CMP, 82190-6, 2156-6 #### [facility] ([id number]) [address] [place] [address] #### HA1C #### [facility] ([id number]) [address] [facility], [address] [place] [address] Neutrophils/100 WBC (Bld) 74.6 % Normal [facility] Comment on above: Performed By: #### C BCA, 05720-8, PINR, 07398-3, 19910-0, 11121-1, 88673-7, THYR, 77147-3, CMP, 21448-7, 2156-6 #### [facility] ([id number]) [address] [place] [address] #### HA1C #### [facility] ([id number]) [address] [facility], [address] [place] [address] Platelet mean volume (Bld) [Entitic vol] 10.1 fL Normal 7-12 [facility] Comment on above: Performed By: #### C BCA, 91823-2, PINR, 27387-7, 76498-7, 45732-4, 31723-2, THYR, 99543-0, CMP, 79802-1, 2156-6 #### [facility] ([id number]) [address] [place] [address] #### HA1C #### [facility] ([id number]) [address] [facility], [address] [place] [address] Platelets (Bld) [#/Vol] 252 10*3/uL Normal 150-450 [facility] Comment on above: Performed By: #### C BCA, 29359-4, PINR, 20595-4, 85720-5, 53631-9, 68621-8, THYR, 12886-3, CMP, 67188-4, 2157-6 #### [facility] ([id number]) [address] [place], [place] [address] #### HA1C #### [facility] ([id number]) [address], [address] [place] [address] POLYCHROMASIA 1+ Abnormal NONE [facility] Comment on above: Performed By: #### C BCA, 00159-2, PINR, 72068-0, 17028-0, 96602-1, 43436-6, THYR, 72930-2, CMP, 69038-9, 2157-6 #### [facility] ([id number]) [address] [place] [address] #### HA1C #### [facility] ([id number]) [address], [address] [place] [address] RBC COUNT 4.24 X10E12/L Normal 4.10-5.70 [facility] Comment on above: Performed By: #### C BCA, 25528-3, PINR, 72111-7, 18891-6, 96229-8, 96504-3, THYR, 67325-0, CMP, 86674-1, 2157-6 #### [facility] ([id number]) [address] [place] [address] #### HA1C #### [facility] ([id number]) [address], [address] [place] [address] TARGET 1+ Abnormal NONE [facility] Comment on above: Performed By: #### C BCA, 42131-9, PINR, 91301-5, 00278-8, 60051-2, 91486-2, THYR, 40496-5, CMP, 76222-5, 2157-6 #### [facility] ([id number]) [address] [place], [place] [address] #### HA1C #### [facility] ([id number]) [address] [facility], [address] [place] [address] WBC (Bld) [#/Vol] 10.3 10*3/uL Normal 4.0-11.[address] [facility] Comment on above: Performed By: #### C BCA, 96319-2, PINR, 46188-6, 10907-2, 07689-9, 66734-2, THYR, 58704-0, CMP, 40240-7, 2157-6 #### [facility] ([id number]) [address] [place] [address] #### HA1C #### [facility] ([id number]) [address] [facility], [address] [place] [address] CK [Catalytic activity/Vol]o n 01-21-2024 CPK 2760 U/L [facility] 24-195 [facility] Comment on above: Performed By: #### C BCA, 31755-5, PINR, 48796-1, 23436-2, 19682-1, 56331-5, THYR, 67359-4, CMP, 14848-7, 2157-6 #### [facility] ([id number]) [address] [place] [address] #### HA1C #### [facility] ([id number]) [address] [place] [address], [address] [place] [address] CPK 2682 U/L [facility] 24-195 [facility] Comment on above: Performed By: #### C BCA, 42520-8, PINR, 44607-2, 77519-9, 58304-6, 20155-9, THYR, 00758-6, CMP, 00883-5, 2157-6 #### [facility] ([id number]) [address] [place], [place] [address] #### HA1C #### [facility] ([id number]) [address], [address] [place] [address] COMPREHENSIVE METABOLIC PANE Jairo 01-21-2024 Albumin [Mass/Vol] 3.6 g/dL Normal 3.2-5.3 [facility] Comment on above: Performed By: #### C BCA, 78401-4, PINR, 36063-7, 46165-1, 72309-4, 75829-4, THYR, 57936-2, CMP, 76854-1, 2157-6 #### [facility] ([id number]) [address] [place], [place] [address] #### HA1C #### [facility] ([id number]) [address], [address] [place] [address] ALP [Catalytic activity/Vol] 118 U/L Normal 39-130 [facility] Comment on above: Performed By: #### C BCA, 21279-4, PINR, 20335-3, 45265-6, 27965-3, 57866-4, THYR, 05946-7, CMP, 54312-3, 2157-6 #### [facility] ([id number]) [address] [place] [address] #### HA1C #### [facility] ([id number]) [address], [address] [place] [address] ALT [Catalytic activity/Vol] 26 U/L Normal 0-40 [facility] Comment on above: Performed By: #### C BCA, 56297-1, PINR, 44870-8, 76943-0, 99410-4, 89600-0, THYR, 05235-1, CMP, 78455-6, 2157-6 #### [facility] ([id number]) [address] [place] [address] #### HA1C #### [facility] ([id number]) [address] [facility], [address] [place] [address] Anion gap [Moles/Vol] 9 mmol/L Normal 5-15 [facility] Comment on above: Performed By: #### C BCA, 66514-0, PINR, 18177-4, 79282-3, 43718-3, 97710-4, THYR, 44661-0, CMP, 29249-6, 2157-6 #### [facility] ([id number]) [address] [place] [address] #### HA1C #### [facility] ([id number]) [address] [facility], [address] [place] [address] AST [Catalytic activity/Vol] 62 U/L High 0-41 [facility] Comment on above: Performed By: #### C BCA, 65463-4, PINR, 06021-7, 02005-4, 32387-2, 29883-6, THYR, 12798-5, CMP, 99676-9, 7-6 #### [facility] ([id number]) [address] [place] [address] #### HA1C #### [facility] ([id number]) [address] [place] [address], [address] [place] [address] Bilirubin [Mass/Vol] 0.6 mg/dL Normal 0.3-1.2 [facility] Comment on above: Performed By: #### C BCA, 13800-1, PINR, 25402-6, 30321-7, 32886-4, 00576-1, THYR, 69236-3, CMP, 50168-6, 7-6 #### [facility] ([id number]) [address] [place] [address] #### HA1C #### [facility] ([id number]) [address] [place] [address], [address] [place] [address] Calcium [Mass/Vol] 8.3 mg/dL Low 8.5-10.5 [facility] Comment on above: Performed By: #### C BCA, 35742-6, PINR, 53477-6, 92484-0, 15384-4, 95822-2, THYR, 86489-9, CMP, 71643-2, 7-6 #### [facility] ([id number]) [address] [place], [place] [address] #### HA1C #### [facility] ([id number]) [address] [facility], [address] [place] [address] Chloride [Moles/Vol] 102 mmol/L Normal 98-109 [facility] Comment on above: Performed By: #### C BCA, 76094-1, PINR, 15834-8, 83923-3, 77025-2, 81341-4, THYR, 21250-6, CMP, 16856-7, 2156-6 #### [facility] ([id number]) [address] [place] [address] #### HA1C #### [facility] ([id number]) [address] [facility], [address] [place] [address] CO2 [Moles/Vol] 22 mmol/L Normal 22-32 [facility] Comment on above: Performed By: #### C BCA, 31545-7, PINR, 67162-6, 91867-7, 85803-9, 57834-3, THYR, 75334-1, CMP, 79513-2, 2156-6 #### [facility] ([id number]) [address] [place], [place] [address] #### HA1C #### [facility] ([id number]) [address] [facility], [address] [place] [address] Creatinine [Mass/Vol] 0.83 mg/dL Normal 0.60-1.30 [facility] Comment on above: Result Comment: METH OD TRACEABLE TO IDMS STANDARD Performed By: #### C BCA, 44823-0, PINR, 24478-7, 17313-2, 12844-9, 18482-0, THYR, 44329-2, CMP, 20100-6, 2157-6 #### [facility] ([id number]) [address] [place] [address] #### HA1C #### [facility] ([id number]) [address] [facility], [address] [place] [address] GFR/1.73 sq M.predicted among non-blacks MDRD (S/P/Bld) [Vol rate/Area] 85 mL/min/{1.73_m2} Normal >59 [facility] Comment on above: Result Comment: Reported eGFR is based on the CKD-EPI 2020 equation that does not use a race coefficient. Performed By: #### C BCA, 38799-2, PINR, 43609-9, 46625-6, 25343-7, 04340-8, THYR, 71992-0, CMP, 58341-5, 2156-6 #### [facility] ([id number]) [address] [place] [address] #### HA1C #### [facility] ([id number]) [address] [place] [address], [address] [address] Glucose [Mass/Vol] 270 mg/dL High 65-99 [facility] Comment on above: Performed By: #### C BCA, 06702-4, PINR, 49777-0, 80560-5, 32332-4, 78670-1, THYR, 35146-3, CMP, 38893-9, 2156-6 #### [facility] ([id number]) [address] [place] [address] #### HA1C #### [facility] ([id number]) [address] [place] [address], [address] [place] [address] Potassium [Moles/Vol] 4.5 mmol/L Normal 3.5-5.0 [facility] Comment on above: Performed By: #### C BCA, 27248-3, PINR, 01074-3, 25608-8, 83147-6, 45825-6, THYR, 45293-9, CMP, 76265-6, 2156-6 #### [facility] ([id number]) [address] [place] [address] #### HA1C #### [facility] ([id number]) [address], [address] [place] [address] Protein [Mass/Vol] 6.4 g/dL Normal 6.0-8.0 [facility] Comment on above: Performed By: #### C BCA, 70482-8, PINR, 63546-7, 67690-6, 25663-7, 55578-0, THYR, 43101-2, CMP, 28647-6, 2156-6 #### [facility] ([id number]) [address] [place] [address] #### HA1C #### [facility] ([id number]) [address] [place] [address], [address] [place] [address] Sodium [Moles/Vol] 133 mmol/L Low 134-146 [facility] Comment on above: Performed By: #### C BCA, 06846-7, PINR, 08995-0, 28716-4, 49482-0, 72126-0, THYR, 28879-6, CMP, 80992-4, 2156-6 #### [facility] ([id number]) [address] [place], [place] [id number] #### HA1C #### [facility] ([id number]) [address] [place] [address], [address] [place] [address] Urea nitrogen [Mass/Vol] 23 mg/dL Normal 5-27 [facility] Comment on above: Performed By: #### C BCA, 00015-1, PINR, 28387-2, 82807-6, 87536-4, 77264-5, THYR, 35725-4, CMP, 28017-7, 2157-6 #### [facility] ([id number]) [address] [place] [address] #### HA1C #### [facility] ([id number]) [address], [address] [place] [address] CT CTA CHESTon 01-21-[address] CTA CHEST CLINICAL INFORMATION: Pulmonary embolism (PE) suspected, low to intermediate prob, positive D-dimer . Dyspnea. TECHNIQUE: CT CTA CHEST CTA of the chest was obtained. Intravenous contrast was administered. Post processed three-dimensional maximum intensity projection imaging was acquired and evaluated. Pulmonary vessels enhance normally without convincing evidence of emboli. Coronary arterial atherosclerotic calcification appreciated. Is also aortic atherosclerotic calcification. No mediastinal lymphadenopathy. Heart appears somewhat enlarged with atrial prominence. No pleural effusions seen. Pulmonary emphysematous changes noted. There is no focal parenchymal consolidation or significant infiltrate. Limited images the upper abdomen are grossly unremarkable 2 within the limits of this exam. IMPRESSION: No obvious pulmonary emboli. Cardiomegaly. Pulmonary emphysematous changes. All CT scans at this facility use dose modulation, iterative reconstruction, and/or weight based dosing when appropriate to reduce radiation dose to as low as reasonably achievable. Finalized by Arturo Alvarado MD on 01/21/2024 2:10 PM Normal [facility] Fibrin D-dimer DDU (PPP) [Ma ss/Vol]on 01-21-2024 D DIMER 2593 ng/mL DDU High <255 [facility] Comment on above: Result Comment: Results >=255ng/mL DDU: Results may be indicative of the presence of VTE. The use of the Wells score and further diagnostic tests should be considered. Elevated D-Dimer levels can also be associated with DIC, neoplasm, , trauma and liver disease. Elevated levels of rheumatoid factor may lead to an overestimation of the D-Dimer level. Performed By: #### C BCA, 35413-6, PINR, 90082-5, 91759-1, 47332-0, 85032-9, THYR, 03672-3, CMP, 76608-6, 2156-12 #### [facility] ([id number]) [address] [place] [address] #### HA1C #### [facility] ([id number]) [address] [place] [address], [address] [place] [address] Glucose Glucometer (BldC) [M ass/Vol]on 01-21-2024 Glucose [Mass/Vol] 305 mg/dL High 65-99 [facility] Glucose [Mass/Vol] 296 mg/dL High 65-99 [facility] Glucose [Mass/Vol] 266 mg/dL High 65-99 [facility] HGB A1C (GLYCO-HGB)on 2023 Glucose [Mass/Vol] 229 mg/dL Normal [facility] Comment on above: Performed By: #### C BCA, 65005-5, PINR, 63546-0, 37140-5, 76711-5, 91380-4, THYR, 43155-3, CMP, 31176-1, 2156-12 #### [facility] ([id number]) [address] [place] [address] #### HA1C #### [facility] ([id number]) [address] [place] [address], [address] [place] [address] HbA1c (Bld) [Mass fraction] 9.6 % High 4.4-5.6 [facility] Comment on above: Result Comment: NOTE ADA Guidelines Result HgbA1c Normal : less than 5.7 % Prediabetes : 5.7 % to 6.4 % Diabetes : > 6.4 % Use with caution in patients with abnormal hemoglobin variants as the half-life of red blood cells and in vivo glycation rates are affected. Performed By: #### C BCA, 36188-0, PINR, 02369-4, 12122-7, 68528-9, 75411-2, THYR, 57644-5, CMP, 49350-5, 2156- #### [facility] ([id number]) [address] [place] [address] #### HA1C #### [facility] ([id number]) [address] [place] [address], [address] [place] [address] Heparin unfractionated Chrom ogenic method Qn (PPP)on 01-21-2024 ANTI XA UFH 0.22 IU/mL Low 0.30-0.70 [facility] Comment on above: Result Comment: Opti mal time for testing is 6 hrs post dosage This test is specific for monitoring patients on UFH, and is not recommended for use with other Anti-Xa medications. Performed By: #### C HEIDI, 44424-4, PINR, 78484-4, 41654-1, 68820-5, 21799-9, THYR, 49559-8, CMP, 13790-4, 2156- #### [facility] ([id number]) [address] [place] [address] #### HA1C #### [facility] ([id number]) [address] [place] [address], [address] [place] [address] ANTI XA UFH 0.19 IU/mL Low 0.30-0.70 [facility] Comment on above: Result Comment: Opti mal time for testing is 6 hrs post dosage This test is specific for monitoring patients on UFH, and is not recommended for use with other Anti-Xa medications. Performed By: #### C BCA, 70018-2, PINR, 60609-1, 60020-5, 63321-3, 08909-6, THYR, 33092-1, CMP, 75451-3, 2156-6 #### [facility] ([id number]) [address] [place] [address] #### HA1C #### [facility] ([id number]) [address] [place] [address], [address] [place] [address] Lactate (P bobo) [Moles/Vol]o n 01-21-2024 LACTATE W/REFLEX 1.2 mmol/L Normal 0.4-2.0 [facility] Comment on above: Result Comment: Result did not trigger repeat Lactate, re-order if needed. Performed By: #### C BCA, 97813-1, PINR, 40300-5, 14629-0, 03092-4, 90146-5, THYR, 25732-8, CMP, 10652-9, 7-6 #### [facility] ([id number]) [address] [place] [address]87[address] #### HA1C #### [facility] ([id number]) [address] [facility], [address] [place] [address] MAGNESIUMon 01-21-2024 Magnesium [Mass/Vol] 1.6 mg/dL Low 1.8-2.6 [facility] Comment on above: Performed By: #### C BCA, 98585-9, PINR, 01639-1, 11745-6, 71779-4, 90849-0, THYR, 40202-9, CMP, 12628-2, 2156-6 #### [facility] ([id number]) [address] [place] [address] #### HA1C #### [facility] ([id number]) [address] [place] [address], [address] [place] [address] Natriuretic peptide B [Mass/ Vol]on 01-21-2024 Natriuretic peptide B (Bld) [Mass/Vol] 1320 pg/mL High <100.0 [facility] Comment on above: Performed By: #### C BCA, 84266-2, PINR, 41981-3, 54355-8, 43484-8, 17700-6, THYR, 58353-3, CMP, 94759-4, 2156-6 #### [facility] ([id number]) [address] [place] [address] #### HA1C #### [facility] ([id number]) [address] [facility], [address] [place] [address] PROTIME AND INRon 01-21-2024 INR Coag (PPP) [Relative time] 1.2 {INR} High 0.8-1.1 [facility] Comment on above: Performed By: #### C BCA, 59906-5, PINR, 28305-1, 00501-4, 44009-8, 96328-6, THYR, 95159-8, CMP, 67179-1, 2157-6 #### [facility] ([id number]) [address] [place] [address] #### HA1C #### [facility] ([id number]) [address] [facility], [address] [place] [address] PT Coag (PPP) [Time] 14.4 s High 9.8-13.2 [facility] Comment on above: Performed By: #### C BCA, 75472-2, PINR, 17335-4, 94403-8, 84574-7, 14072-2, THYR, 97987-9, CMP, 70086-1, 2156- #### [facility] ([id number]) [address] [place], [place] [address] #### HA1C #### [facility] ([id number]) [address] [place] [address], [address] [place] [address] Procalcitonin IA [Mass/Vol]o n 01-21-2024 PROCALCITONIN 0.06 ng/mL High <0.05 [facility] Comment on above: Result Comment: NOTE <0.50 ng/mL - Low risk of severe sepsis and/or septic shock. <2.00 ng/mL - Recommend retesting within 6-24 hours. >2.00 ng/mL - High risk of sepsis and/or septic shock. Performed By: #### C BCA, 65780-9, PINR, 31030-2, 43894-7, 47218-2, 48641-9, THYR, 90153-7, CMP, 89008-1, 2157-6 #### [facility] ([id number]) [address] [place] [address] #### HA1C #### [facility] ([id number]) [address] [place] [address], [address] [place] [address] RESP PATHOGENS/[id number]-[id number] 01-21-2024 Respiratory pathogens DNA and RNA panel ANASTASIA+non-probe (Nph) SPECIMEN SOURCE NASO PHARYNX ADENOVIRUS Not detected (qualifier value) CORONAVIRUS 229E Not detected (qualifier value) CORONAVIRUS HKU1 Not detected (qualifier value) CORONAVIRUS NL63 Not detected (qualifier value) CORONAVIRUS OC43 Not detected (qualifier value) HUMAN METAPNEUVIRUS Not detected (qualifier value) RHINO/ENTEROVIRUS Not detected (qualifier value) INFLUENZA A Not detected (qualifier value) INFLUENZA B Not detected (qualifier value) PARAINFLUENZA 1 Not detected (qualifier value) PARAINFLUENZA 2 Not detected (qualifier value) PARAINFLUENZA 3 Not detected (qualifier value) PARAINFLUENZA 4 Not detected (qualifier value) RESP SYNCYTIAL VIRUS Not detected (qualifier value) BORD PARAPERTUSSIS Not detected (qualifier value) BORDETELLA PERTUSSIS Not detected (qualifier value) CHLAM.PNEUMONIAE Not detected (qualifier value) MYCO. PNEUMONIAE Not detected (qualifier value) SARS CoV 2 Not detected (qualifier value) NOTE The S[employer]urle Respiratory Panel 2.1 (RP2.1) is a multiplexed nucleic acid test intended for the simultaneous qualitative detection and differentiation of nucleic acid from multiple viral and bacterial respiratory organisms, including nucleic acid from Severe Acute Respiratory Syndrome Coronavirus 2 (SARS-CoV-2), in nasopharyngeal swabs obtained from individuals suspected of COVID-19 by their healthcare provider. Testing is limited to laboratories certified under the Clinical Laboratory Improvement Amendments of 1988 (CLIA), to perform high complexity or moderate complexity tests. SARS-CoV-2 RNA and nucleic acids from the other respiratory viral and bacterial organisms identified by this test are generally detectable in nasopharyngeal swabs during the acute phase of infection. The detection and identification of specific viral and bacterial nucleic acids from individuals exhibiting signs and/or symptoms of respiratory infection is indicative of the presence of the identified microorganism and aids in the diagnosis of respiratory infection if used in conjunction with other clinical and epidemiological information. Positive results are indicative of the presence of the identified organism, but do not rule out co-infection with other pathogens. The agent(s) detected by the [employer] RP2.1 may not be the definite cause of disease and clinical correlation with patient history and other diagnostic information is necessary to determine patient infection status. Negative results in the setting of a respiratory illness may be due to infection with pathogens not detected by this test, or lower respiratory tract infection that may not be detected by a nasopharyngeal specimen. Negative results do not preclude SARS-CoV-2 infection and should not be used as the sole basis for patient management decisions. Negative HAYDE-CoV-2 results must be combined with clinical observations, patient history and epidemiological information. Negative results for other organisms identified by the test may require additional laboratory testing when evaluating a patient with possible respiratory tract infection. Normal [facility] Comment on above: Performed By: #### C HEIDI, 42396-5, PINR, 11815-3, 44654-9, 55350-5, 82629-0, THYR, 40863-6, CMP, 94601-5, 2157-6 #### [facility] ([id number]) [address] [place] [address] #### HA1C #### [facility] ([id number]) [address] [place] [address], [address] [address] THYROID PROFILEon 01-21-2024 Free T4 [Mass/Vol] 1.04 ng/dL Normal 0.61-1.60 [facility] Comment on above: Performed By: #### C HEIDI, 92786-7, PINR, 14305-0, 95463-1, 04117-4, 94400-1, THYR, 33025-3, CMP, 93020-6, 2157-6 #### [facility] ([id number]) [address] [place] [address] #### HA1C #### [facility] ([id number]) [address] [facility], [address] [place] [address] TSH 0.70 uIU/mL Normal 0.49-4.67 [facility] Comment on above: Performed By: #### C BCA, 05863-1, PINR, 77456-6, 62192-6, 44563-0, 17445-4, THYR, 83591-2, CMP, 67381-3, 2157-6 #### [facility] ([id number]) [address] [place] [address]87 #### HA1C #### [facility] ([id number]) [address] [facility], [address] [place] [address] Troponin I.cardiac High sens itivity method [Mass/Vol]on 01-21-2024 TROPONIN I, HIGH SENSITIVITY 211 ng/L High <21 [facility] Comment on above: Result Comment: Elevations of hs-Troponin may be due to causes other than myocardial ischemia. Recommend serial hs-Troponin testing be performed. For the initial evaluation and management of chest pain patients, refer to the algorithms linked below. Emergency Patient: [email or web address]& uh=acaea Inpatient: [email or web address]/[email or web address]& uh=acaea Performed By: #### C BCA, 41262-8, PINR, 94887-6, 71344-4, 56498-7, 92199-3, THYR, 37622-8, CMP, 10387-7, 2157-6 #### [facility] ([id number]) [address] [place] [address] #### HA1C #### [facility] ([id number]) [address] [facility], [address] [place] [address] 3 HOUR TROP I, HIGH SENSITIVITY 256 ng/L High <21 [facility] Comment on above: Result Comment: Elevations of hs-Troponin may be due to causes other than myocardial ischemia. Recommend serial hs-Troponin testing be performed. For the initial evaluation and management of chest pain patients, refer to the algorithms linked below. Emergency Patient: [email or web address]/[email or web address]& uh=acaea Inpatient: [email or web address]& uh=acaea Performed By: #### C BCA, 51184-1, PINR, 29245-6, 86601-6, 94335-5, 01553-3, THYR, 25377-0, CMP, 36703-5, 2157-6 #### [facility] ([id number]) [address] [place] [address] #### HA1C #### [facility] ([id number]) [address], [address] [place] [address] XR CHEST 1 VWon 01-21-2024 XR CHEST 1 VW XR CHEST 1 VW History: Congestion EXAM: Chest AP portable upright COMPARISON: None FINDINGS: Cardiac silhouette within normal limits. Mild interstitial prominence. No pneumothorax. No infiltrate or large pleural effusion. IMPRESSION: Mild interstitial edema Finalized by Butch Eaton MD on 01/21/2024 1:38 PM Normal [facility] aPTT Coag (PPP) [Time]on aPTT Coag (Bld) [Time] 54 s High 26-37 [facility] Comment on above: Performed By: #### C BCA, 21007-7, PINR, 04601-8, 46525-1, 39763-3, 52001-6, THYR, 43050-0, CMP, 67271-0, 2157-6 #### [facility] ([id number]) [address] [place] [address] #### HA1C #### [facility] ([id number]) [address], [address] [place] [address] Glucose Glucometer (BldC) [M ass/Vol]Ordered By: Alberto Shearer on 11-11-2023 Glucose [Mass/Vol] 83 mg/dL [facility] Comment on above: Random Glucose Refer ence Range is dependent on time and content of last meal. Glucose of more than 200 mg/dL in a nonstressed, ambulatory subject supports the diagnosis of Diabetes Mellitus. No Panel InformationOrdered By: Alberto Shearer on 11-11-2023 Bedside Glucose Comment Glu2: cleaned meter [facility] Bedside Glucose #2 Comment Cleaned meter [facility] Glucose Glucometer (BldC) [M ass/Vol]Ordered By: Yomi Flores on 09-27-2023 Glucose [Mass/Vol] 71 mg/dL [facility] Comment on above: Random Glucose Refer ence Range is dependent on time and content of last meal. Glucose of more than 200 mg/dL in a nonstressed, ambulatory subject supports the diagnosis of Diabetes Mellitus. Glucose Glucometer (BldC) [M ass/Vol]Ordered By: Vidya Robert on 09-06-2023 Glucose [Mass/Vol] 268 mg/dL [facility] Comment on above: Random Glucose Refer ence Range is dependent on time and content of last meal. Glucose of more than 200 mg/dL in a nonstressed, ambulatory subject supports the diagnosis of Diabetes Mellitus. No Panel InformationOrdered By: Vidya Robert on 09-06-2023 Bedside Glucose Comment Glu2: cleaned meter [facility] Erythrocyte distribution wid th Auto (RBC) [Ratio]Ordered By: [employer] on 09-05-2023 Erythrocyte distribution width (RBC) [Ratio] 16.7 % 12.0-14.8 [facility] Hematocrit Auto (Bld) [Volum e fraction]Ordered By: [employer] on 09-05-2023 Hematocrit (Bld) [Volume fraction] 22.7 % 38.8-50.0 [facility] Hemoglobin [Mass/volume] in BloodOrdered By: [employer] on 09-05-2023 Hemoglobin (Bld) [Mass/Vol] 7.8 g/dL 13.0-17.0 [facility] Leukocytes [#/volume] correc robert for nucleated erythrocytes in Blood by Automated counOrdered By: [employer] on 09-05-2023 WBC corrected for nucl RBC Auto (Bld) [#/Vol] 9.4 10*3/uL 4.1-10.5 [facility] MCH Auto (RBC) [Entitic mass ]Ordered By: [employer] on 09-05-2023 MCH (RBC) [Entitic mass] 28.7 pg 27.5-35.2 [facility] MCHC Auto (RBC) [Mass/Vol]Or dered By: [employer] on 09-05-2023 MCHC (RBC) [Mass/Vol] 34.1 g/dL 32.5-35.6 [facility] MCV Auto (RBC) [Entitic vol] Ordered By: [employer] on 09-05-2023 MCV (RBC) [Entitic vol] 84.1 fL 83.5-101 [facility] Platelet mean volume Auto (B ld) [Entitic vol]Ordered By: [employer] on 09-05-2023 Platelet mean volume (Bld) [Entitic vol] 9.8 fL 6.6-10.1 [facility] Platelets Auto (Bld) [#/Vol] Ordered By: [employer] on 09-05-2023 Platelets (Bld) [#/Vol] 236 10*3/uL 150-450 [facility] RBC Auto (Bld) [#/Vol]Ordere d By: [employer] on 09-05-2023 RBC (Bld) [#/Vol] 2.70 10*6/uL 3.90-5.60 [facility] Basophils Auto (Bld) [#/Vol] Ordered By: Jeevan Pinzon on 09-04-2023 Basophils (Bld) [#/Vol] 0.0 10*3/uL 0.0-0.2 [facility] Basophils/100 WBC Auto (Bld) Ordered By: Jeevan Pinzon on 09-04-2023 Basophils/100 WBC (Bld) 0.4 % . [facility] Eosinophils Auto (Bld) [#/Vo l]Ordered By: Jeevan Pinzon on 09-04-2023 Eosinophils (Bld) [#/Vol] 0.1 10*3/uL 0.0-0.45 [facility] Eosinophils/100 WBC Auto (Bl d)Ordered By: Jeevan Pinzon on 09-04-2023 Eosinophils/100 WBC (Bld) 0.8 % . [facility] Lymphocytes Auto (Bld) [#/Vo l]Ordered By: Jeevan Pinzon on 09-04-2023 Lymphocytes (Bld) [#/Vol] 1.3 10*3/uL 1.00-4.8 [facility] Lymphocytes/100 WBC Auto (Bl d)Ordered By: Jeevan Pinzon on 09-04-2023 Lymphocytes/100 WBC (Bld) 11.7 % . [facility] Monocytes Auto (Bld) [#/Vol] Ordered By: Jeevan Pinzon on 09-04-2023 Monocytes (Bld) [#/Vol] 1.9 10*3/uL 0.0-0.8 [facility] Monocytes/100 WBC Auto (Bld) Ordered By: Jeevan Pinzon on 09-04-2023 Monocytes/100 WBC (Bld) 17.9 % . [facility] Comment on above: Absolute monocytosis is commonly reactive in nature. However, if unexplained, recommend follow-up CBC in 3 months to evaluate for persistence. Neutrophils Auto (Bld) [#/Vo l]Ordered By: Jeevan Pinzon on 09-04-2023 Neutrophils (Bld) [#/Vol] 7.4 10*3/uL 1.8-7.7 [facility] Neutrophils/100 WBC Auto (Bl d)Ordered By: Jeevan Pinzon on 09-04-2023 Neutrophils/100 WBC (Bld) 69.2 % . [facility] Nucleated erythrocytes [Pres ence] in Blood by Automated countOrdered By: Jeevan Pinzon on 09-04-2023 Nucleated RBC Auto Ql (Bld) 0.2 /100{WBC} 0-0.5 [facility] WBC Auto (Bld) [#/Vol]Ordere d By: Jeevan Pinzon on 09-04-2023 WBC (Bld) [#/Vol] 10.7 10*3/uL 4.1-10.5 [facility] No Panel InformationOrdered By: [employer] on 09-02-2023 Bedside Glucose #2 Comment Will repeat test [facility] Acanthocytes [Presence] in B lood by Light microscopyOrdered By: [employer] on 09-01-2023 Acanthocytes LM Ql (Bld) Slight [facility] Anisocytosis LM Ql (Bld)Orde red By: [employer] on 09-01-2023 Anisocytosis Ql (Bld) Moderate [facility] Band form neutrophils/100 WB C Manual cnt (Bld)Ordered By: [employer] on 09-01-2023 Band form neutrophils/100 WBC (Bld) 4 % 0-5 [facility] Mcdermitt cells [Presence] in Blo od by Light microscopyOrdered By: [employer] on 09-01-2023 Mcdermitt cells LM Ql (Bld) Slight [facility] Calcium [Mass/volume] in Ser um or PlasmaOrdered By: [employer] on 09-01-2023 Calcium [Mass/Vol] 7.7 mg/dL 8.6-10.3 [facility] Carbon dioxide, total [Moles /volume] in Serum or PlasmaOrdered By: [employer] on 09-01-2023 CO2 [Moles/Vol] 27.3 mmol/L 21.0-31.0 [facility] Chloride [Moles/volume] in S jihan or PlasmaOrdered By: [employer] on 09-01-2023 Chloride [Moles/Vol] 106 mmol/L 98-107 [facility] Creatinine [Mass/volume] in Serum or PlasmaOrdered By: [employer] on 09-01-2023 Creatinine [Mass/Vol] 0.81 mg/dL 0.70-1.30 [facility] Glucose [Mass/volume] in Ser um or PlasmaOrdered By: [employer] on 09-01-2023 Glucose [Mass/Vol] 79 mg/dL 70-100 [facility] Comment on above: ADA recommended refe rence rangeRandom Glucose Reference Range is dependent on time and content of last meal. Glucose of more than 200 mg/dL in a nonstressed, ambulatory subject supports the diagnosis of Diabetes Mellitus. Hypochromia LM Ql (Bld)Order ed By: [employer] on 09-01-2023 Hypochromia Ql (Bld) Moderate [facility] Lymphocytes/100 WBC Manual c nt (Bld)Ordered By: [employer] on 09-01-2023 Lymphocytes/100 WBC (Bld) 9 % 18-42 [facility] Microcytes LM Ql (Bld)Ordere d By: [employer] on 09-01-2023 Microcytes Ql (Bld) Moderate [facility] Monocytes/100 WBC Manual cnt (Bld)Ordered By: [employer] on 09-01-2023 Monocytes/100 WBC (Bld) 7 % 2-11 [facility] No Panel InformationOrdered By: [employer] on 09-01-2023 Estimated GFR (CKD-EPI) > 60.0 mL/Min [facility] Creatinine Clearance (Chem 59.91 [facility] Ovalocyte detectionOrdered B y: [employer] on 09-01-2023 Ovalocytes LM Ql (Bld) Slight [facility] Platelet adequacy [Presence] in Blood by Light microscopyOrdered By: [employer] on 09-01-2023 Platelets LM Ql (Bld) Decreased Normal [facility] Platelet morphology finding [Identifier] in BloodOrdered By: [employer] on 09-01-2023 Platelet morphology finding Nom (Bld) N/A [facility] Platelets Large [Presence] i n Blood by Light microscopyOrdered By: [employer] on 09-01-2023 Platelets Large LM Ql (Bld) Slight [facility] Poikilocytosis [Presence] in Blood by Light microscopyOrdered By: [employer] on 09-01-2023 Poikilocytosis LM Ql (Bld) Moderate [facility] Polychromasia [Presence] in Blood by Light microscopyOrdered By: [employer] on 09-01-2023 Polychromasia LM Ql (Bld) [facility] Potassium [Moles/volume] in Serum or PlasmaOrdered By: [employer] on 09-01-2023 Potassium [Moles/Vol] 3.9 mmol/L 3.5-5.1 [facility] RBC morphologyOrdered By: Jenni [employer] on 09-01-2023 RBC morphology finding Nom (Bld) N/A [facility] Schistocytes [Presence] in B lood by Light microscopyOrdered By: [employer] on 09-01-2023 Schistocytes LM Ql (Bld) Slight [facility] Segmented neutrophils/100 WB C Manual cnt (Bld)Ordered By: [employer] on 09-01-2023 Segmented neutrophils/100 WBC (Bld) 81 % 50-70 [facility] Serum or plasma anion gap de terminationOrdered By: [employer] on 09-01-2023 Anion gap [Moles/Vol] 10.6 mmol/L 6.0-15.0 [facility] Sodium [Moles/volume] in Ser um or PlasmaOrdered By: [employer] on 09-01-2023 Sodium [Moles/Vol] 140 mmol/L 136-145 [facility] Target cellsOrdered By: Gamal [employer] on 09-01-2023 Target cells LM Ql (Bld) [facility] Troponin I.cardiac [Mass/vol ume] in Serum or Plasma by Detection limit <= 0.01 ng/Ordered By: [employer] on 09-01-2023 Troponin I.cardiac DL <= 0.01 ng/mL [Mass/Vol] 779.8 pg/mL 0.0-20.0 [facility] Comment on above: Critical Result : Ca lled to and read back by: EDNA MORALES at: 09/01/2023 06:23:23 by:TANIA Urea nitrogen [Mass/volume] in Serum or PlasmaOrdered By: [employer] on 09-01-2023 Urea nitrogen [Mass/Vol] 37 mg/dL 7-25 [facility] Activated partial thrombopla stin time (aPTT) in platelet poor plasma by coagulation aOrdered By: Federico Davis on 07-16-2023 aPTT Coag (PPP) [Time] 30.2 s 25.1-36.5 [facility] Comment on above: A hematocrit value g reater than 55% may lead to inaccurate results in coagulation testing. Patients having hematocrit values >55% require a special collection tube for coagulation studies. Please contact the laboratory at [phone] for redraw instructions. Anisocytosis LM Ql (Bld)Orde red By: Federico Davis on 07-16-2023 Anisocytosis Ql (Bld) Slight [facility] Basophils Auto (Bld) [#/Vol] Ordered By: Federico Davis on 07-16-2023 Basophils (Bld) [#/Vol] 0.0 10*3/uL 0.0-0.2 [facility] Basophils/100 WBC Auto (Bld) Ordered By: Federico Davis on 07-16-2023 Basophils/100 WBC (Bld) 0.5 % . [facility] Carbon dioxide, total [Moles /volume] in Serum or PlasmaOrdered By: Federico Davis on 07-16-2023 CO2 [Moles/Vol] 26.8 mmol/L 21.0-31.0 [facility] Chloride [Moles/volume] in S jihan or PlasmaOrdered By: Federico Davis on 07-16-2023 Chloride [Moles/Vol] 103 mmol/L 98-107 [facility] Creatinine [Mass/volume] in Serum or PlasmaOrdered By: Federico Davis on 07-16-2023 Creatinine [Mass/Vol] 0.71 mg/dL 0.70-1.30 [facility] Eosinophils Auto (Bld) [#/Vo l]Ordered By: Federico Davis on 07-16-2023 Eosinophils (Bld) [#/Vol] 0.0 10*3/uL 0.0-0.45 [facility] Eosinophils/100 WBC Auto (Bl d)Ordered By: Federico Davis on 07-16-2023 Eosinophils/100 WBC (Bld) 0.3 % . [facility] Erythrocyte distribution wid th Auto (RBC) [Ratio]Ordered By: Federico Davis on 07-16-2023 Erythrocyte distribution width (RBC) [Ratio] 16.5 % 12.0-14.8 [facility] Glucose Glucometer (BldC) [M ass/Vol]Ordered By: Federico Davis on 07-16-2023 Glucose [Mass/Vol] 398 mg/dL [facility] Comment on above: Random Glucose Refer ence Range is dependent on time and content of last meal. Glucose of more than 200 mg/dL in a nonstressed, ambulatory subject supports the diagnosis of Diabetes Mellitus. Hematocrit Auto (Bld) [Volum e fraction]Ordered By: Federico Davis on 07-16-2023 Hematocrit (Bld) [Volume fraction] 33.5 % 38.8-50.0 [facility] Hemoglobin [Mass/volume] in BloodOrdered By: Federico Davis on 07-16-2023 Hemoglobin (Bld) [Mass/Vol] 11.0 g/dL 13.0-17.0 [facility] Hypochromia LM Ql (Bld)Order ed By: Federico Davis on 07-16-2023 Hypochromia Ql (Bld) Marked [facility] INR in Platelet poor plasma by Coagulation assayOrdered By: Federico Davis on 07-16-2023 INR Coag (PPP) [Relative time] 1.1 {INR} [facility] Comment on above: INR Therapeutic [...] with mechanical heart valves: 3 - 4.5 Leukocytes [#/volume] correc robert for nucleated erythrocytes in Blood by Automated counOrdered By: Federico Davis on 07-16-2023 WBC corrected for nucl RBC Auto (Bld) [#/Vol] 8.4 10*3/uL 4.1-10.5 [facility] Lymphocytes Auto (Bld) [#/Vo l]Ordered By: Federico Davis on 07-16-2023 Lymphocytes (Bld) [#/Vol] 0.7 10*3/uL 1.00-4.8 [facility] Lymphocytes/100 WBC Auto (Bl d)Ordered By: Federico Davis on 07-16-2023 Lymphocytes/100 WBC (Bld) 8.4 % . [facility] MCH Auto (RBC) [Entitic mass ]Ordered By: Federico Davis on 07-16-2023 MCH (RBC) [Entitic mass] 26.4 pg 27.5-35.2 [facility] MCHC Auto (RBC) [Mass/Vol]Or dered By: Federico Davis on 07-16-2023 MCHC (RBC) [Mass/Vol] 32.8 g/dL 32.5-35.6 [facility] MCV Auto (RBC) [Entitic vol] Ordered By: Federico Davis on 07-16-2023 MCV (RBC) [Entitic vol] 80.4 fL 83.5-101 [facility] Macrocytes LM Ql (Bld)Ordere d By: Federico Davis on 07-16-2023 Macrocytes Ql (Bld) Slight [facility] Monocytes Auto (Bld) [#/Vol] Ordered By: Federico Davis on 07-16-2023 Monocytes (Bld) [#/Vol] 1.3 10*3/uL 0.0-0.8 [facility] Monocytes/100 WBC Auto (Bld) Ordered By: Fedreico Davis on 07-16-2023 Monocytes/100 WBC (Bld) 15.1 % . [facility] Neutrophils Auto (Bld) [#/Vo l]Ordered By: Federico Davis on 07-16-2023 Neutrophils (Bld) [#/Vol] 6.3 10*3/uL 1.8-7.7 [facility] Neutrophils/100 WBC Auto (Bl d)Ordered By: Federico Davis on 07-16-2023 Neutrophils/100 WBC (Bld) 75.7 % . [facility] No Panel InformationOrdered By: Federico Davis on 07-16-2023 Bedside Glucose Comment Glu2: cleaned meter [facility] Estimated GFR (CKD-EPI) > 60.0 mL/Min [facility] Creatinine Clearance (Chem N/A [facility] Nucleated erythrocytes [Pres ence] in Blood by Automated countOrdered By: Federico Davis on 07-16-2023 Nucleated RBC Auto Ql (Bld) 0.1 /100{WBC} 0-0.5 [facility] Platelet adequacy [Presence] in Blood by Light microscopyOrdered By: Federico Davis on 07-16-2023 Platelets LM Ql (Bld) Normal Normal [facility] Platelet mean volume Auto (B ld) [Entitic vol]Ordered By: Federico Davis on 07-16-2023 Platelet mean volume (Bld) [Entitic vol] 10.1 fL 6.6-10.1 [facility] Platelet morphology finding [Identifier] in BloodOrdered By: Federico Davis on 07-16-2023 Platelet morphology finding Nom (Bld) N/A [facility] Platelets Auto (Bld) [#/Vol] Ordered By: Federico Davis on 07-16-2023 Platelets (Bld) [#/Vol] 243 10*3/uL 150-450 [facility] Platelets Large [Presence] i n Blood by Light microscopyOrdered By: Federico Davis on 07-16-2023 Platelets Large LM Ql (Bld) Slight [facility] Poikilocytosis [Presence] in Blood by Light microscopyOrdered By: Federico Davis on 07-16-2023 Poikilocytosis LM Ql (Bld) Moderate [facility] Polychromasia [Presence] in Blood by Light microscopyOrdered By: Federico Davis on 07-16-2023 Polychromasia LM Ql (Bld) Moderate [facility] Potassium [Moles/volume] in Serum or PlasmaOrdered By: Federico Davis on 07-16-2023 Potassium [Moles/Vol] 4.2 mmol/L 3.5-5.1 [facility] Prothrombin time (PT)Ordered By: Federico Davis on 07-16-2023 PT Coag (PPP) [Time] 12.3 s 9.0-12.9 [facility] Comment on above: A hematocrit value g reater than 55% may lead to inaccurate results in coagulation testing. Patients having hematocrit values >55% require a special collection tube for coagulation studies. Please contact the laboratory at [phone] for redraw instructions. RBC Auto (Bld) [#/Vol]Ordere d By: Federico Davis on 07-16-2023 RBC (Bld) [#/Vol] 4.17 10*6/uL 3.90-5.60 [facility] RBC morphologyOrdered By: Federico Davis on 07-16-2023 RBC morphology finding Nom (Bld) N/A [facility] Schistocytes [Presence] in B lood by Light microscopyOrdered By: Federico Davis on 07-16-2023 Schistocytes LM Ql (Bld) Slight [facility] Serum or plasma anion gap de terminationOrdered By: Federico Davis on 07-16-2023 Anion gap [Moles/Vol] 12.4 mmol/L 6.0-15.0 [facility] Sodium [Moles/volume] in Ser um or PlasmaOrdered By: Federico Davis on 07-16-2023 Sodium [Moles/Vol] 138 mmol/L 136-145 [facility] Target cellsOrdered By: Federico espino on 07-16-2023 Target cells LM Ql (Bld) Moderate [facility] Urea nitrogen [Mass/volume] in Serum or PlasmaOrdered By: Federico Davis on 07-16-2023 Urea nitrogen [Mass/Vol] 16 mg/dL 7-25 [facility] WBC Auto (Bld) [#/Vol]Ordere d By: Federico Davis on 07-16-2023 WBC (Bld) [#/Vol] 8.4 10*3/uL 4.1-10.5 [facility] Progress Noteson 06-02-2023 [employer] Authentication Interface Message Text EMERGENCY TRIAGE, TREAT AND TRANSPORT (ET3) DOCUMENTATION OF TELEHEALTH VISIT Date / Time: 06/02/2023929 Name: Ifeanyi Vickers : 1935 SSN: (Not on file) EMS Agency: [facility] [x] Verbal consent obtained [...] Completed by: Herminio Weston MD Normal [facility] [employer] [facility] ECG 12 Leadon 05-25-2023 Normal sinus rhythm, anterolateral ST T wave abnormality, abnormal ECG [facility] Work Phone: Glucose Glucometer (BldC) [M ass/Vol]Ordered By: Fredi Medrano on 05-08-2023 Glucose [Mass/Vol] 98 mg/dL [facility] Comment on above: Random Glucose Refer ence Range is dependent on time and content of last meal. Glucose of more than 200 mg/dL in a nonstressed, ambulatory subject supports the diagnosis of Diabetes Mellitus. No Panel InformationOrdered By: Fredi Medrano on 05-08-2023 Bedside Glucose Comment Glu2: cleaned meter [facility] Alanine aminotransferase [En zymatic activity/volume] in Serum or PlasmaOrdered By: Fredi Medrano on 05-04-2023 ALT [Catalytic activity/Vol] 14 U/L 7-52 [facility] Albumin [Mass/volume] in Ser um or Plasma by Bromocresol green (BCG) dye binding methoOrdered By: Fredi Medrano on 05-04-2023 Albumin BCG dye [Mass/Vol] 2.9 g/dL 3.5-5.7 [facility] Alkaline phosphatase [Enzyma tic activity/volume] in Serum or PlasmaOrdered By: Fredi Medrano on 05-04-2023 ALP [Catalytic activity/Vol] 87 U/L 34-104 [facility] Aspartate aminotransferase [ Enzymatic activity/volume] in Serum or PlasmaOrdered By: Fredi Medrano on 05-04-2023 AST [Catalytic activity/Vol] 20 U/L 13-39 [facility] Basophils Auto (Bld) [#/Vol] Ordered By: Fredi Medrano on 05-04-2023 Basophils (Bld) [#/Vol] 0.0 10*3/uL 0.0-0.2 [facility] Basophils/100 WBC Auto (Bld) Ordered By: Fredi Medrano on 05-04-2023 Basophils/100 WBC (Bld) 0.7 % . [facility] Bilirubin.total [Mass/volume ] in Serum or PlasmaOrdered By: Fredi Medrano on 05-04-2023 Bilirubin [Mass/Vol] 0.5 mg/dL 0.3-1.0 [facility] Calcium [Mass/volume] in Ser um or PlasmaOrdered By: Fredi Medrano on 05-04-2023 Calcium [Mass/Vol] 8.0 mg/dL 8.6-10.3 [facility] Carbon dioxide, total [Moles /volume] in Serum or PlasmaOrdered By: Fredi Medrano on 05-04-2023 CO2 [Moles/Vol] 28.0 mmol/L 21.0-31.0 [facility] Chloride [Moles/volume] in S jihan or PlasmaOrdered By: Fredi Medrano on 05-04-2023 Chloride [Moles/Vol] 102 mmol/L 98-107 [facility] Creatinine [Mass/volume] in Serum or PlasmaOrdered By: Fredi Medrano on 05-04-2023 Creatinine [Mass/Vol] 0.61 mg/dL 0.70-1.30 [facility] Eosinophils Auto (Bld) [#/Vo l]Ordered By: Fredi Medrano on 05-04-2023 Eosinophils (Bld) [#/Vol] 0.1 10*3/uL 0.0-0.45 [facility] Eosinophils/100 WBC Auto (Bl d)Ordered By: Fredi Medrano on 05-04-2023 Eosinophils/100 WBC (Bld) 1.5 % . [facility] Erythrocyte distribution wid th Auto (RBC) [Ratio]Ordered By: Fredi Medrano on 05-04-2023 Erythrocyte distribution width (RBC) [Ratio] 16.8 % 12.0-14.8 [facility] Globulin Calc (S) [Mass/Vol] Ordered By: Fredi Medrano 05-04-2023 Globulin (S) [Mass/Vol] 2.5 g/dL [facility] Glucose [Mass/volume] in Ser um or PlasmaOrdered By: Fredi Medrano on 05-04-2023 Glucose [Mass/Vol] 120 mg/dL 70-100 [facility] Comment on above: ADA recommended refe rence rangeRandom Glucose Reference Range is dependent on time and content of last meal. Glucose of more than 200 mg/dL in a nonstressed, ambulatory subject supports the diagnosis of Diabetes Mellitus. Hematocrit Auto (Bld) [Volum e fraction]Ordered By: Fredi Medrano on 05-04-2023 Hematocrit (Bld) [Volume fraction] 29.3 % 38.8-50.0 [facility] Hemoglobin [Mass/volume] in BloodOrdered By: Fredi Medrano on 05-04-2023 Hemoglobin (Bld) [Mass/Vol] 9.7 g/dL 13.0-17.0 [facility] Leukocytes [#/volume] correc robert for nucleated erythrocytes in Blood by Automated counOrdered By: Fredi Medrano on 05-04-2023 WBC corrected for nucl RBC Auto (Bld) [#/Vol] 7.2 10*3/uL 4.1-10.5 [facility] Lymphocytes Auto (Bld) [#/Vo l]Ordered By: Fredi Medrano on 05-04-2023 Lymphocytes (Bld) [#/Vol] 1.6 10*3/uL 1.00-4.8 [facility] Lymphocytes/100 WBC Auto (Bl d)Ordered By: Fredi Medrano on 05-04-2023 Lymphocytes/100 WBC (Bld) 23.0 % . [facility] MCH Auto (RBC) [Entitic mass ]Ordered By: Fredi Medrano on 05-04-2023 MCH (RBC) [Entitic mass] 27.9 pg 27.5-35.2 [facility] MCHC Auto (RBC) [Mass/Vol]Or dered By: Fredi Medrano on 05-04-2023 MCHC (RBC) [Mass/Vol] 33.0 g/dL 32.5-35.6 [facility] MCV Auto (RBC) [Entitic vol] Ordered By: Fredi Medrano on 05-04-2023 MCV (RBC) [Entitic vol] 84.6 fL 83.5-101 [facility] Monocytes Auto (Bld) [#/Vol] Ordered By: Fredi Medrano on 05-04-2023 Monocytes (Bld) [#/Vol] 0.7 10*3/uL 0.0-0.8 [facility] Monocytes/100 WBC Auto (Bld) Ordered By: Fredi Medrano on 05-04-2023 Monocytes/100 WBC (Bld) 9.9 % . [facility] Neutrophils Auto (Bld) [#/Vo l]Ordered By: Fredi Medrano on 05-04-2023 Neutrophils (Bld) [#/Vol] 4.6 10*3/uL 1.8-7.7 [facility] Neutrophils/100 WBC Auto (Bl d)Ordered By: Fredi Medrano on 05-04-2023 Neutrophils/100 WBC (Bld) 64.9 % . [facility] No Panel InformationOrdered By: Fredi Medrano on 05-04-2023 Estimated GFR (CKD-EPI) > 60.0 mL/Min [facility] Creatinine Clearance (Chem 62.25 [facility] Nucleated erythrocytes [Pres ence] in Blood by Automated countOrdered By: Fredi Medrano on 05-04-2023 Nucleated RBC Auto Ql (Bld) 0.2 /100{WBC} 0-0.5 [facility] Platelet mean volume Auto (B ld) [Entitic vol]Ordered By: Fredi Medrano on 05-04-2023 Platelet mean volume (Bld) [Entitic vol] 8.9 fL 6.6-10.1 [facility] Platelets Auto (Bld) [#/Vol] Ordered By: Fredi Medrano on 05-04-2023 Platelets (Bld) [#/Vol] 218 10*3/uL 150-450 [facility] Potassium [Moles/volume] in Serum or PlasmaOrdered By: Fredi Medrano on 05-04-2023 Potassium [Moles/Vol] 4.6 mmol/L 3.5-5.1 [facility] Prealbumin [Mass/volume] in Serum or PlasmaOrdered By: Fredi Medrano on 05-04-2023 Prealbumin [Mass/Vol] 10.2 mg/dL 17.0-34.0 [facility] Protein [Mass/volume] in Ser um or PlasmaOrdered By: Fredi Medrano on 05-04-2023 Protein [Mass/Vol] 5.4 g/dL 6.4-8.9 [facility] RBC Auto (Bld) [#/Vol]Ordere d By: Fredi Medrano on 05-04-2023 RBC (Bld) [#/Vol] 3.46 10*6/uL 3.90-5.60 [facility] Serum or plasma albumin/glob ulin mass ratioOrdered By: Fredi Medrano on 05-04-2023 Albumin/Globulin [Mass ratio] 1.2 {ratio} [facility] Serum or plasma anion gap de terminationOrdered By: Fredi Medrano on 05-04-2023 Anion gap [Moles/Vol] 8.6 mmol/L 6.0-15.0 [facility] Sodium [Moles/volume] in Ser um or PlasmaOrdered By: Fredi Medrano on 05-04-2023 Sodium [Moles/Vol] 134 mmol/L 136-145 [facility] Urea nitrogen [Mass/volume] in Serum or PlasmaOrdered By: Fredi Medrano on 05-04-2023 Urea nitrogen [Mass/Vol] 22 mg/dL 7-25 [facility] WBC Auto (Bld) [#/Vol]Ordere d By: Fredi Medrano on 05-04-2023 WBC (Bld) [#/Vol] 7.2 10*3/uL 4.1-10.5 [facility] Cholesterol [Mass/volume] in Serum or PlasmaOrdered By: Anat Perez on 05-03-2023 Cholesterol [Mass/Vol] 98 mg/dL 140-200 [facility] Comment on above: Chol less than 200 m g/dl low riskChol 201-239 mg/dl borderline riskChol 240 mg/dl and greater high risk Cholesterol in LDL Calc [Mas s/Vol]Ordered By: Anat Perez on 05-03-2023 Cholesterol in LDL [Mass/Vol] 46 mg/dL 0-100 [facility] Comment on above: LDL ATP III CLASSIFI CATIONLDL less than 100 mg/dL OptimalLDL 100-129 mg/dL Near or above optimalLDL 130-159 mg/dL Borderline highLDL 160-189 mg/dL HighLDL greater than 189 mg/dL Very high Cholesterol in VLDL Calc [Ma ss/Vol]Ordered By: Anat Perez on 05-03-2023 Cholesterol in VLDL [Mass/Vol] 12 mg/dL [facility] Glucose Glucometer (BldC) [M ass/Vol]Ordered By: Humberto Diaz on 05-03-2023 Glucose [Mass/Vol] 388 mg/dL [facility] Comment on above: Random Glucose Refer ence Range is dependent on time and content of last meal. Glucose of more than 200 mg/dL in a nonstressed, ambulatory subject supports the diagnosis of Diabetes Mellitus. Serum or plasma high density lipoprotein (HDL) cholesterol measurementOrdered By: Anat Perez on 05-03-2023 Cholesterol in HDL [Mass/Vol] 39 mg/dL [facility] Comment on above: HDL CHOL ATP-III CLA SSIFICATION Cardiovascular RiskHDL > or equal to 60 mg/dL LOWHDL < 40 mg/dL HIGH Serum or plasma total choles terol/high density lipoprotein (HDL) cholesterol mass ratOrdered By: Anat Perez on 05-03-2023 Cholesterol.total/Chol esterol in HDL [Mass ratio] 2.5 {ratio} <5.0 [facility] Triglyceride [Mass/volume] i n Serum or PlasmaOrdered By: Anat Perez on 05-03-2023 Triglyceride [Mass/Vol] 64 mg/dL 0-149 [facility] Comment on above: TRIG ATP III CLASSIF ICATIONTRIG less than 150 mg/dL NormalTRIG 150-199 mg/dL Borderline highTRIG 200-500 mg/dL High TRIG greater than 500 mg/dL Very highStandard traceable to the Center for Disease Conrtrol and Prevention (CDC) test method. Basophils Auto (Bld) [#/Vol] Ordered By: Sushant Cordon on 05-02-2023 Basophils (Bld) [#/Vol] 0.0 10*3/uL 0.0-0.2 [facility] Basophils/100 WBC Auto (Bld) Ordered By: Sushant Cordon on 05-02-2023 Basophils/100 WBC (Bld) 0.1 % . [facility] Calcium [Mass/volume] in Ser um or PlasmaOrdered By: Sushant Cordon on 05-02-2023 Calcium [Mass/Vol] 8.0 mg/dL 8.6-10.3 [facility] Carbon dioxide, total [Moles /volume] in Serum or PlasmaOrdered By: Sushant Cordon on 05-02-2023 CO2 [Moles/Vol] 30.1 mmol/L 21.0-31.0 [facility] Chloride [Moles/volume] in S jihan or PlasmaOrdered By: Sushant Cordon on 05-02-2023 Chloride [Moles/Vol] 97 mmol/L 98-107 [facility] Creatinine [Mass/volume] in Serum or PlasmaOrdered By: Sushant Cordon on 05-02-2023 Creatinine [Mass/Vol] 0.86 mg/dL 0.70-1.30 [facility] Eosinophils Auto (Bld) [#/Vo l]Ordered By: Sushant Cordon on 05-02-2023 Eosinophils (Bld) [#/Vol] 0.1 10*3/uL 0.0-0.45 [facility] Eosinophils/100 WBC Auto (Bl d)Ordered By: Sushant Cordon on 05-02-2023 Eosinophils/100 WBC (Bld) 0.8 % . [facility] Erythrocyte distribution wid th Auto (RBC) [Ratio]Ordered By: Sushant Cordon on 05-02-2023 Erythrocyte distribution width (RBC) [Ratio] 17.0 % 12.0-14.8 [facility] Glucose [Mass/volume] in Ser um or PlasmaOrdered By: Sushant Cordon on 05-02-2023 Glucose [Mass/Vol] 87 mg/dL 70-100 [facility] Comment on above: ADA recommended refe rence rangeRandom Glucose Reference Range is dependent on time and content of last meal. Glucose of more than 200 mg/dL in a nonstressed, ambulatory subject supports the diagnosis of Diabetes Mellitus. Hematocrit Auto (Bld) [Volum e fraction]Ordered By: Sushant Cordon on 05-02-2023 Hematocrit (Bld) [Volume fraction] 27.8 % 38.8-50.0 [facility] Hemoglobin [Mass/volume] in BloodOrdered By: Sushant Cordon on 05-02-2023 Hemoglobin (Bld) [Mass/Vol] 9.3 g/dL 13.0-17.0 [facility] Leukocytes [#/volume] correc robert for nucleated erythrocytes in Blood by Automated counOrdered By: Sushant Cordon on 05-02-2023 WBC corrected for nucl RBC Auto (Bld) [#/Vol] 8.6 10*3/uL 4.1-10.5 [facility] Lymphocytes Auto (Bld) [#/Vo l]Ordered By: Sushant Cordon on 05-02-2023 Lymphocytes (Bld) [#/Vol] 1.2 10*3/uL 1.00-4.8 [facility] Lymphocytes/100 WBC Auto (Bl d)Ordered By: Sushant Cordon on 05-02-2023 Lymphocytes/100 WBC (Bld) 13.7 % . [facility] MCH Auto (RBC) [Entitic mass ]Ordered By: Sushant Cordon on 05-02-2023 MCH (RBC) [Entitic mass] 28.3 pg 27.5-35.2 [facility] MCHC Auto (RBC) [Mass/Vol]Or dered By: Sushant Cordon on 05-02-2023 MCHC (RBC) [Mass/Vol] 33.6 g/dL 32.5-35.6 [facility] MCV Auto (RBC) [Entitic vol] Ordered By: Sushant Cordon on 05-02-2023 MCV (RBC) [Entitic vol] 84.2 fL 83.5-101 [facility] Monocytes Auto (Bld) [#/Vol] Ordered By: Sushant Cordon on 05-02-2023 Monocytes (Bld) [#/Vol] 1.2 10*3/uL 0.0-0.8 [facility] Monocytes/100 WBC Auto (Bld) Ordered By: Sushant Cordon on 05-02-2023 Monocytes/100 WBC (Bld) 13.5 % . [facility] Neutrophils Auto (Bld) [#/Vo l]Ordered By: Sushant Cordon on 05-02-2023 Neutrophils (Bld) [#/Vol] 6.2 10*3/uL 1.8-7.7 [facility] Neutrophils/100 WBC Auto (Bl d)Ordered By: Sushant Cordon on 05-02-2023 Neutrophils/100 WBC (Bld) 71.9 % . [facility] No Panel InformationOrdered By: Sushant Cordon on 05-02-2023 Bedside Glucose Comment See comment [facility] Comment on above: Glu2: WILL NOTIFY DR /RN Estimated GFR (CKD-EPI) > 60.0 mL/Min [facility] Creatinine Clearance (Chem 59.22 [facility] Nucleated erythrocytes [Pres ence] in Blood by Automated countOrdered By: Sushant Cordon on 05-02-2023 Nucleated RBC Auto Ql (Bld) 0.0 /100{WBC} 0-0.5 [facility] Platelet mean volume Auto (B ld) [Entitic vol]Ordered By: Sushant Cordon on 05-02-2023 Platelet mean volume (Bld) [Entitic vol] 9.3 fL 6.6-10.1 [facility] Platelets Auto (Bld) [#/Vol] Ordered By: uSshant Cordon on 05-02-2023 Platelets (Bld) [#/Vol] 168 10*3/uL 150-450 [facility] Potassium [Moles/volume] in Serum or PlasmaOrdered By: Sushant Cordon on 05-02-2023 Potassium [Moles/Vol] 4.2 mmol/L 3.5-5.1 [facility] RBC Auto (Bld) [#/Vol]Ordere d By: Sushant Cordon on 05-02-2023 RBC (Bld) [#/Vol] 3.29 10*6/uL 3.90-5.60 [facility] Serum or plasma anion gap de terminationOrdered By: Sushant Cordon on 05-02-2023 Anion gap [Moles/Vol] 8.1 mmol/L 6.0-15.0 [facility] Sodium [Moles/volume] in Ser um or PlasmaOrdered By: Sushant Cordon on 05-02-2023 Sodium [Moles/Vol] 131 mmol/L 136-145 [facility] Urea nitrogen [Mass/volume] in Serum or PlasmaOrdered By: Sushant Cordon on 05-02-2023 Urea nitrogen [Mass/Vol] 21 mg/dL 7-25 [facility] WBC Auto (Bld) [#/Vol]Ordere d By: Sushant Cordon on 05-02-2023 WBC (Bld) [#/Vol] 8.6 10*3/uL 4.1-10.5 [facility] Activated partial thrombopla stin time (aPTT) in platelet poor plasma by coagulation aOrdered By: Anat Perez on 04-30-2023 aPTT Coag (PPP) [Time] 30.6 s 25.1-36.5 [facility] Comment on above: A hematocrit value g reater than 55% may lead to inaccurate results in coagulation testing. Patients having hematocrit values >55% require a special collection tube for coagulation studies. Please contact the laboratory at [phone] for redraw instructions. INR in Platelet poor plasma by Coagulation assayOrdered By: Anat Perez on 04-30-2023 INR Coag (PPP) [Relative time] 1.3 {INR} [facility] Comment on above: INR Therapeutic [...] peptide B (Bld) [Mass/Vol] 523.0 pg/mL 5-100 [facility] Prothrombin time (PT)Ordered By: Anat Perez on 04-30-2023 PT Coag (PPP) [Time] 15.6 s 9.0-12.9 [facility] Comment on above: A hematocrit value g reater than 55% may lead to inaccurate results in coagulation testing. Patients having hematocrit values >55% require a special collection tube for coagulation studies. Please contact the laboratory at [phone] for redraw instructions. Troponin I.cardiac [Mass/vol ume] in Serum or Plasma by Detection limit <= 0.01 ng/Ordered By: Anat Perez on 04-30-2023 Troponin I.cardiac DL <= 0.01 ng/mL [Mass/Vol] 53.7 pg/mL 0.0-20.0 [facility] Comment on above: Critical Result : Ca lled to and read back by: STEVEN BYRD at: 04/30/2023 19:24:20 by:[id number] Ferritin [Mass/volume] in Se rum or PlasmaOrdered By: Sushant Cordon on 04-29-2023 Ferritin [Mass/Vol] 41.5 ng/mL 23.9-336.2 [facility] Folate [Mass/volume] in Seru m or PlasmaOrdered By: Sushant Cordon on 04-29-2023 Folate [Mass/Vol] 28.0 ng/mL >5.9 [facility] Comment on above: Folate reference ran ge: >5.9 ng/mlThe WHO technical consultation on folate and vitamin [id number] has determined that folate concentrations lessthan 4 ng/ml are considered deficient. Iron [Mass/volume] in Serum or PlasmaOrdered By: Sushant Cordon on 04-29-2023 Iron [Mass/Vol] 45 ug/dL 50-212 [facility] Iron binding capacity [Mass/ volume] in Serum or PlasmaOrdered By: Sushant Cordon on 04-29-2023 Iron binding capacity [Mass/Vol] 330 ug/dL 255-450 [facility] Iron saturation [Mass Fracti on] in Serum or PlasmaOrdered By: Sushant Cordon on 04-29-2023 Iron saturation [Mass fraction] 13.6 % 20-50 [facility] Magnesium [Mass/volume] in S jihan or PlasmaOrdered By: Sushant Cordon on 04-29-2023 Magnesium [Mass/Vol] 1.9 mg/dL 1.9-2.7 [facility] No Panel InformationOrdered By: Sushant Cordon on 04-29-2023 Bedside Glucose #[address]/rn [facility] Transferrin [Mass/volume] in Serum or PlasmaOrdered By: Sushant Cordon on 04-29-2023 Transferrin [Mass/Vol] 236 mg/dL 203-362 [facility] Vitamin B12 ser/plasOrdered By: Sushant Cordon on 04-29-2023 Cobalamin (Vitamin B12) [Mass/Vol] 626 pg/mL 180-914 [facility] Activated partial thrombopla stin time (aPTT) in platelet poor plasma by coagulation aOrdered By: Vinnie Rivas on 04-28-2023 aPTT Coag (PPP) [Time] 27.8 s 25.1-36.5 [facility] Comment on above: A hematocrit value g reater than 55% may lead to inaccurate results in coagulation testing. Patients having hematocrit values >55% require a special collection tube for coagulation studies. Please contact the laboratory at [phone] for redraw instructions. Alanine aminotransferase [En zymatic activity/volume] in Serum or PlasmaOrdered By: Vinnie Rivas on 04-28-2023 ALT [Catalytic activity/Vol] 34 U/L 7-52 [facility] Albumin [Mass/volume] in Ser um or Plasma by Bromocresol green (BCG) dye binding methoOrdered By: Vinnie Rivas on 04-28-2023 Albumin BCG dye [Mass/Vol] 4.0 g/dL 3.5-5.7 [facility] Alkaline phosphatase [Enzyma tic activity/volume] in Serum or PlasmaOrdered By: Vinnie Rivas on 04-28-2023 ALP [Catalytic activity/Vol] 108 U/L 34-104 [facility] Aspartate aminotransferase [ Enzymatic activity/volume] in Serum or PlasmaOrdered By: Vinnie Rivas on 04-28-2023 AST [Catalytic activity/Vol] 46 U/L 13-39 [facility] Basophils Auto (Bld) [#/Vol] Ordered By: Vinnie Rivas on 04-28-2023 Basophils (Bld) [#/Vol] 0.0 10*3/uL 0.0-0.2 [facility] Basophils/100 WBC Auto (Bld) Ordered By: Vinnie Rivas on 04-28-2023 Basophils/100 WBC (Bld) 0.4 % . [facility] Bilirubin Test strip Ql (U)O rdered By: Vinnie Rivas on 04-28-2023 Bilirubin Ql (U) Negative Negative [facility] Bilirubin.total [Mass/volume ] in Serum or PlasmaOrdered By: Vinnie Rivas on 04-28-2023 Bilirubin [Mass/Vol] 0.3 mg/dL 0.3-1.0 [facility] Calcium [Mass/volume] in Ser um or PlasmaOrdered By: Vinnie Rivas on 04-28-2023 Calcium [Mass/Vol] 9.0 mg/dL 8.6-10.3 [facility] Carbon dioxide, total [Moles /volume] in Serum or PlasmaOrdered By: Vinnie Rivas on 04-28-2023 CO2 [Moles/Vol] 30.4 mmol/L 21.0-31.0 [facility] Chloride [Moles/volume] in S jihan or PlasmaOrdered By: Vinnie Rivas on 04-28-2023 Chloride [Moles/Vol] 101 mmol/L 98-107 [facility] Color Auto (U)Ordered By: Juan F Rivas on 04-28-2023 Color (U) Yellow Yellow [facility] Creatinine [Mass/volume] in Serum or PlasmaOrdered By: Vinnie Rivas on 04-28-2023 Creatinine [Mass/Vol] 0.71 mg/dL 0.70-1.30 [facility] Eosinophils Auto (Bld) [#/Vo l]Ordered By: Vinnie Rivas on 04-28-2023 Eosinophils (Bld) [#/Vol] 0.0 10*3/uL 0.0-0.45 [facility] Eosinophils/100 WBC Auto (Bl d)Ordered By: Vinnie Rivas on 04-28-2023 Eosinophils/100 WBC (Bld) 0.5 % . [facility] Erythrocyte distribution wid th Auto (RBC) [Ratio]Ordered By: Vinnie Rivas on 04-28-2023 Erythrocyte distribution width (RBC) [Ratio] 18.0 % 12.0-14.8 [facility] Fructosamine [Moles/volume] in Serum or PlasmaOrdered By: Sushant Cordon on 04-28-2023 Fructosamine [Moles/Vol] 565 umol/L 0-285 [facility] Comment on above: Published reference interval for apparently healthysubjects between age 20 and 60 is 205 - 285 umol/L and in apoorly controlled diabetic population is 228 - 563 umol/Lwith a mean of 396 umol/L.Performed at: [facility] [id number] Director: Arturo Boles PhD, Phone: [phone] Globulin Calc (S) [Mass/Vol] Ordered By: Vinnie Rivas on 04-28-2023 Globulin (S) [Mass/Vol] 3.2 g/dL [facility] Glucose Glucometer (BldC) [M ass/Vol]Ordered By: Sushant Cordon on 04-28-2023 Glucose [Mass/Vol] 137 mg/dL [facility] Comment on above: Random Glucose Refer ence Range is dependent on time and content of last meal. Glucose of more than 200 mg/dL in a nonstressed, ambulatory subject supports the diagnosis of Diabetes Mellitus. Glucose [Mass/volume] in Ser um or PlasmaOrdered By: Vinnie Rivas on 04-28-2023 Glucose [Mass/Vol] 124 mg/dL 70-100 [facility] Comment on above: ADA recommended refe [...] from glycated hemoglobin (Bld) [Mass/Vol] 309 mg/dL [facility] Hematocrit Auto (Bld) [Volum e fraction]Ordered By: Vinnie Rivas on 04-28-2023 Hematocrit (Bld) [Volume fraction] 34.8 % 38.8-50.0 [facility] Hemoglobin A1c percentageOrd ered By: Sushant Cordon on 04-28-2023 HbA1c (Bld) [Mass fraction] 12.4 % 4.3-5.6 [facility] Comment on above: Increased risk for d iabetes: 5.7 - 6.4diabetes: >6.4glycemic control for adults with diabetes: <7.0 Hemoglobin [Mass/volume] in BloodOrdered By: Vinnie Rivas on 04-28-2023 Hemoglobin (Bld) [Mass/Vol] 11.5 g/dL 13.0-17.0 [facility] INR in Platelet poor plasma by Coagulation assayOrdered By: Vinnie Rivas on 04-28-2023 INR Coag (PPP) [Relative time] 1.0 {INR} [facility] Comment on above: INR Therapeutic [...] on 04-28-2023 Ketones (U) [Mass/Vol] Negative Negative [facility] Leukocytes [#/volume] correc robert for nucleated erythrocytes in Blood by Automated counOrdered By: Vinnie Rivas on 04-28-2023 WBC corrected for nucl RBC Auto (Bld) [#/Vol] 9.7 10*3/uL 4.1-10.5 [facility] Lymphocytes Auto (Bld) [#/Vo l]Ordered By: Vinnie Rivas on 04-28-2023 Lymphocytes (Bld) [#/Vol] 1.4 10*3/uL 1.00-4.8 [facility] Lymphocytes/100 WBC Auto (Bl d)Ordered By: Vinnie Rivas on 04-28-2023 Lymphocytes/100 WBC (Bld) 14.8 % . [facility] MCH Auto (RBC) [Entitic mass ]Ordered By: Vinnie Rivas on 04-28-2023 MCH (RBC) [Entitic mass] 28.0 pg 27.5-35.2 [facility] MCHC Auto (RBC) [Mass/Vol]Or dered By: Vinnie Rivas on 04-28-2023 MCHC (RBC) [Mass/Vol] 33.2 g/dL 32.5-35.6 [facility] MCV Auto (RBC) [Entitic vol] Ordered By: Vinnie Rivas on 04-28-2023 MCV (RBC) [Entitic vol] 84.3 fL 83.5-101 [facility] Monocyte distribution width [Entitic volume] in Blood by AutomatedOrdered By: Vinnie Rivas on 04-28-2023 Monocyte distribution width Auto (Bld) [Entitic vol] 18.61 % 0.00-20.00 [facility] Monocytes Auto (Bld) [#/Vol] Ordered By: Vinnie Rivas on 04-28-2023 Monocytes (Bld) [#/Vol] 0.9 10*3/uL 0.0-0.8 [facility] Monocytes/100 WBC Auto (Bld) Ordered By: Vinnie Rivas on 04-28-2023 Monocytes/100 WBC (Bld) 9.3 % . [facility] Natriuretic peptide B [Mass/ Vol]Ordered By: Vinnie Rivas on 04-28-2023 Natriuretic peptide B (Bld) [Mass/Vol] 665.0 pg/mL 5-100 [facility] Neutrophils Auto (Bld) [#/Vo l]Ordered By: Vinnie Rivas on 04-28-2023 Neutrophils (Bld) [#/Vol] 7.3 10*3/uL 1.8-7.7 [facility] Neutrophils/100 WBC Auto (Bl d)Ordered By: Vinnie Rivas on 04-28-2023 Neutrophils/100 WBC (Bld) 75.0 % . [facility] Nitrite Test strip Ql (U)Ord ered By: Vinnie Rivas on 04-28-2023 Nitrite Ql (U) Negative Negative [facility] No Panel InformationOrdered By: Vinnie Rivas on 04-28-2023 Estimated GFR (CKD-EPI) > 60.0 mL/Min [facility] Creatinine Clearance (Chem 60.38 [facility] Nucleated erythrocytes [Pres ence] in Blood by Automated countOrdered By: Vinnie Rivas on 04-28-2023 Nucleated RBC Auto Ql (Bld) 0.1 /100{WBC} 0-0.5 [facility] Platelet mean volume Auto (B ld) [Entitic vol]Ordered By: Vinnie Rivas on 04-28-2023 Platelet mean volume (Bld) [Entitic vol] 9.3 fL 6.6-10.1 [facility] Platelets Auto (Bld) [#/Vol] Ordered By: Vinnie Rivas on 04-28-2023 Platelets (Bld) [#/Vol] 206 10*3/uL 150-450 [facility] Potassium [Moles/volume] in Serum or PlasmaOrdered By: Vinnie Rivas on 04-28-2023 Potassium [Moles/Vol] 4.9 mmol/L 3.5-5.1 [facility] Protein Auto test strip (U) [Mass/Vol]Ordered By: Vinnie Rivas on 04-28-2023 Protein (U) [Mass/Vol] Negative Negative [facility] Protein [Mass/volume] in Ser um or PlasmaOrdered By: Vinnie Rivas on 04-28-2023 Protein [Mass/Vol] 7.2 g/dL 6.4-8.9 [facility] Prothrombin time (PT)Ordered By: Vinnie Rivas on 04-28-2023 PT Coag (PPP) [Time] 11.8 s 9.0-12.9 [facility] Comment on above: A hematocrit value g reater than 55% may lead to inaccurate results in coagulation testing. Patients having hematocrit values >55% require a special collection tube for coagulation studies. Please contact the laboratory at [phone] for redraw instructions. RBC Auto (Bld) [#/Vol]Ordere d By: Vinnie Rivas on 04-28-2023 RBC (Bld) [#/Vol] 4.12 10*6/uL 3.90-5.60 [facility] Serum or plasma albumin/glob ulin mass ratioOrdered By: Vinnie Rivas on 04-28-2023 Albumin/Globulin [Mass ratio] 1.3 {ratio} [facility] Serum or plasma anion gap de terminationOrdered By: Vinnie Rivas on 04-28-2023 Anion gap [Moles/Vol] 9.5 mmol/L 6.0-15.0 [facility] Sodium [Moles/volume] in Ser um or PlasmaOrdered By: Vinnie Rivas on 04-28-2023 Sodium [Moles/Vol] 136 mmol/L 136-145 [facility] Specific gravity Auto test s trip (U) [Rel density]Ordered By: Vinnie Rivas on 04-28-2023 Specific gravity (U) [Rel density] 1.009 1.001-1.03 0 [facility] Troponin I.cardiac [Mass/vol ume] in Serum or Plasma by Detection limit <= 0.01 ng/Ordered By: Vinnie Rivas on 04-28-2023 Troponin I.cardiac DL <= 0.01 ng/mL [Mass/Vol] 38.3 pg/mL 0.0-20.0 [facility] Urea nitrogen [Mass/volume] in Serum or PlasmaOrdered By: Vinnie Rivas on 04-28-2023 Urea nitrogen [Mass/Vol] 15 mg/dL 7-25 [facility] Urine clarity by refractomet ry automatedOrdered By: Vinnie Rivas on 04-28-2023 Clarity Refractometry automated (U) Clear Clear [facility] Urine glucose measurement by automated test strip (mass/volume)Ordered By: Vinnie Rivas on 04-28-2023 Glucose Auto test strip (U) [Mass/Vol] Normal mg/dL Normal [facility] Urine hemoglobin detection b y automated test stripOrdered By: Vinnie Rivas on 04-28-2023 Hemoglobin Auto test strip Ql (U) Negative Negative [facility] Urine leukocyte esterase det ection by automated test stripOrdered By: Vinnie Rivas on 04-28-2023 Leukocyte esterase Auto test strip Ql (U) Negative Negative [facility] Urobilinogen Auto test strip (U) [Mass/Vol]Ordered By: Vinnie Rivas on 04-28-2023 Urobilinogen (U) [Mass/Vol] Normal mg/dL Normal [facility] WBC Auto (Bld) [#/Vol]Ordere d By: Vinnie Rivas on 04-28-2023 WBC (Bld) [#/Vol] 9.7 10*3/uL 4.1-10.5 [facility] pH Auto test strip (U)Ordere d By: Vinnie Rivas on 04-28-2023 pH (U) 6.5 [pH] 5.0-9.0 [facility] Coding Summaryon 04-26-2023 Coding Summary HTMLBase 64 PcxtyeehDFo7xNj+PGhlYWQ+P T1XFAZsE16atSGokE7bS6HKIF lOSywgQVBQTElOSyIgbmFtZT1 kaXNjZXJu IC8+EL1zTHYkGnnfsSRhf8H6s WI5V10ssa0nGEujuPG2HMRrBs Htgcubl2skgHl5XBdnTavkNzC t NXMzbQ73IFH9vM25Hz13wTAix BYpx9chvBa1AsBhHBZxXLC5oV qbFOerw5RbEIJfY09avZGkj8F 6 KTMulXawhZAyAsKchYF1hQ1jZ Sawtnnfy8qkgoabXqh2ek13cL Ewv6B7zOQ0I6QxwkT5AWEybTQ g TsvawEYEaY5hlazjr3zqgprtF oLpBQNzELq2AIw5GOSvmFdzIp FbCU63TFD6TEVxsxUdM2XqSUI s mLyqHpX1i2A4Zr1EV5NNAopbW 1VNTUFSWTwvdGQ+OS91wp64W3 YrVwufUzu2RCNqFPN4bKD3hA9 n MBWjZVugx2Y4nUI1B1EiahCcf g2dz0hrJPHlFXzyN56jwRQyi4 K0CIGwvEI3XORoqJblZpQijO1 3 Oyc+GBKtfEyvg4AgLamll9dij 5lbpMy9PtzxMIWqguRjqIbeEQ E3b2MyWe4jRMZojAU4fBE7oQ9 i JhTdVtJ9RFgiM971RuFdyKJyM uyeO28gZ2LyqHP+FNHgAeu1OI MpwZtsNW6yZ6DyPIDyvnxfqCH m nTyvCL1cHNLtfmqvLPPctM7aD DUtV2g2BpFoEuU2DZrrH8UsEQ TnmimiBk35rX9rDoCnXgD1JQv u S0GnteL9WTBmkCMgEDnxRWQ2M 08fw3B9HZRsODBnPEP3tIT8rU 1hbGlnbjogbGVmdDsgdmVydGl j HNtlUXyhB211VGQxnFnpYfCnM GluZyBEYXRlOiAgMTAvMTYvMj AyMzwvdGQ+ANVvPMV9xAiyQUK n kPHaZEraXn7wtRbxsMrxOX0tO XVxwdvqTGHwmQ2oZYSxoNRgkW omET7pEVVvuyrtb867GiPkRAJ 0 AJUksHJxB0VeqA7iSoQbVCOeZ MDuQ1ZjuVGjUCdeJ671YDboXr Y4RTHydtGoI5QfBJGnnAlxUvQ 0 n7K0Ud2Kf7InswlmS8TdtITeA mGrCnpwGEf1L3TwWfdvyVO+PC 94QYVuCO31XBp9HXR3gShdPXk i JBUyZ7BpsP6hLdVtCGPvHYHeI yc+PHRhYmxlIHdpZHRoPScxMD SaQrRwgEbePL2qXa6tTLKyJCS v xSexvNYkZwJap8ziYUVxJIofG K2lhHeyV7EjoQF6FFCaw6p8Kt 24Z16cZ9WpwKM+WGZxbBM4sBF 0 oV7iOkHgKxK5KYomM468PsDkd BUiWmkad4mzy5hadKx6NsU5UR BqwsYnjEclCBU5x9KfFm50E08 s IHdpZHRoPSIxNSUiIHZhbGlnb m4psY7yCb4+AOTrdNI1wNR8rL 5vMxOzQpA9WGfoC880ElGmnMX v Kotjw1vsf4dwfFb7TvAoFXFbl mAroBzxUJM5w3AfSx23C4XctR vcm8MgBhz2sp11kIEsz9H0gHD 9 S7UiNSUfbawizFKdqLxlGD8oJ ZHtkbduSANndC1hBMYhJ8s5Ca YeQuJ8ZBenK0QzqrM6OPNzaRL g IFNttTDDbH9xjymnc5xopwdbW iEmRDQrMCw9OKo2HTLglPhhYa WhKKD1KtP9ONG8rWFbdA3rgXx n yjcskQ7vIei+ZYP0xRMqjGGEN U8oRcsqbAA+MIClLZG7jNdjZH ooGARzlG5aCLXdM4c5EmSsAiK 1 IApbQ5KkabI9OYCcuOAbWHRee UBCjU1dytuvr5kzylssUfXlAC ImAZe0TKb4LKUnlKlcXvPcOIQ 0 RqS0SRE5tTWnxB9dnKdhivebp G9wOyc+XvxdzTvlQQY5TEo5J7 BfApu6TZWypCzhRW7uiKSxPZz u Qr2dhOzyuGvsCX9bLGZgwrxgk 979UwDbm5kvDHNzqFEnIMzlPL V1B55lh7W5UAWqUYWuJKG9vJB 4 qM9wnXnknkkylTLjdZapwyUnl UdrCChjPMjgG079UPMxdVvbFi ZhTZk9K2NjPvq0BUJvvHchLR7 n pCCvAZneGt8nsCdroHktPE7cZ SVgwnjel250UtJth9akALSvzS WvKJkzQJC2V47qn8U1ZFJtUQM w LBT2iLY7vQ7afWzvbnbfmMQmc SdrbpXqmSxoQEmcEZgfH287XM QnhPdhQnDbtGn6H5NlDpw3APC z dRntZC6ysPLoCXehXp9uhMzxk CcbLD0rCJHrowfuy853YnVxe8 qiHPNimSNbKPlhOMF8T74gn7A 6 NHVdLYVbIOS8cCC7pT0lmIjdo jogbGVmdDsgdmVydGljYWwtYW ddO384XMOyfBvgGfSogOabtaN g CWgjECx3J4KeIuvkaHJ+PC90Y GBvMA13uLBooXWkx9gulRp1Xv VlMVLuNAM7qKwoZWxzo5BcMSE t Q57drZIwk0J3QEHwmCucpZCvR jMatRC0dM5zGFvfwbfmt7trpm oyUdszs1nmuc62zR97N05iXXj p VBDqRQZkASAxTQDihFsqcn4ch G9wIi8+MMScnIR3wVX4iX5wQA AmSzI7UMxhO220PtVwsPOoUfg j x8juo4kisTl6CiL4BEWkixZcy NvrBMO5f9JaNf91S13zQTbkUY MhLKRcMFWvAGGxpEdagu2uyA9 w Ii8+ELVbrWC0aRV8pY1zUyBlT jH0NOsuM959IoAqrTMqAthgW0 5kC7EsiPD+GPClYvh3LMJfpLu s VX0gmLHoQKgbBt7kFUN2TdJjA nLhJNryP4TuUQCrndpodkkpkM R7ISXuTUTcdK76Rr4aiPyjYMQ w oQJXsJ9smejtv0quunqrHjRzA OSjMZb0GBs0DOIldPpjMfAyXH D1NyA1UJD2rFPdyF3ccMfupfm g oQ5sM5AmQPEdzherUr76cC8zX iInFeG4FMkyWtw+D2NGDu4BPH KJWT3UCNroYfeoyNB+PHRkIHN 0 yJwcAVfmWVDklM8mKKVeI0f2U vBlWvM1QOecA9SsIOQjefxvQd 75uJ9eNvMlTeR4TNmqU9QqyqM 6 JNVrgNYdZGvqWYR5D08bu9C6I VMvVKFnZXI6sMN7jK8pfLejjs ogbGVmdDsgdmVydGljYWwtYWx p D102WTFmqAthWdE5IcVtTcG8Y kd0H8CvNqq0RDJnzNypZP4ekT MsOFktKc6uhCwsvXjwYG5lGKR p snboFEKnmI3fFVOilXLsgGraG E5cFWUqtbzwb023WsVlZKG7WN XuuOOrL1PupB4eDlGbLPJfLYC w L7AngFSaIXiaS291SLkwVwV4D ESbgoHdQ8MmCBUlgQdoJsN7p4 E5Nn22SvKRVCRatgpkbKN+PHR k JXF4hFjnFVgiWFGlqB5pPSYbW 1w0DdKwNkR1WIblC8JjUBVhlj deXu49bS3cFgChCkO7ECpcQ3Q v trO3UEAjzRRpLXvgFUZ1T21da 0S1VTHqCKOfQEW6mIF3pY8bpL lnbjogbGVmdDsgdmVydGljYWw t BMrhI189ELRksKoiLk0JYYG1Y 0GaHco0VBMnzDntSL7gzVJeDE pwZq2kuQhnnHxaTJ6pERJzowr w XHFuaT9pCSVysJJgmMigBB4hI HEgiriqr599FtCtOPZ9YKPeyT UjA0MkdA6xGmFmOZKbNGUsW8O l kBIuJXakN660UXytFkL9VDKek nBlH4HcPJLzhVcmKdL5e4R6Jh 5PUDwvdGQ+VN07hn12B1DcMlf l Tjz8GYPzSIZ9hKA2wZ9bQKQiF Nejs7Y4uWB4F5KlngFgdp1re0 moUSMeRNlqF98sgAXjt5S3FHB t tBE5IWZhxPfvZsUsxF06Ufw+P BFncCjbl3AkLdvod7rxj3ilrB e5HvUxRARjhjIntCthHTA8l1B i Nz88P36sVEkiIKCsMCZeVIJeU VTqjKxayl5ohN7uCr2+PGNvbC C8jON6vV2yYtImPmW6RGoxS58 9 HqQddFKoQtjbi9vns6tuaGb7C xAeMLOhtmXudLdhEPD3z1DiKc 49X4WhhZcbj1PkWnc6pi95tNJ g n9I6yQQ9I3MiLHPqezmwdJJac XjrAG3sJPBoptnoDTCdzQ9kWP RfO5x1YiNtLaC3JMaiF6UnkhC 6 KLWedRGpJHUedXBTbM7rzmhav 7xzvsgnMsVnZLZxIHn5QZu9YG MqdEauLkMoOSX2HjC6SDS1cWI h sM5cxXiogbxszH0oHet+UGh5c 0homGJsVP2loML2ZI40GY23lQ Npy9D3kZN6E7VxAOQetantvan n nXH6GNHsUWRkkL38El1tdLdkK y6iYNWeJNT4JWJixERfS6LxqD 9fTvBuYOUrQGJdV3XzyYDjJAg p O553YKdqXnH0MVEqhwLwN9FgH GLiwMesFnO9l4O2Ps1NYB20NK 13FC96wQFnu8H4xJA2Z2AwNKU p bbfjhjitsCG4VFWyOADqmB29G r0qnNolZw2yTUUmWUY7RSVuzX JaP7WvzS3aPhDeJLItHFKzD6V l xRNbDRwxV548PXzyBuM8GLWxy cFkV5JyQFQsmUocWwP5k3M2Zg 4CXx92DN17RI84pJJnp3F5ySP 9 K8MkOYYhsgblamtdiZN5PLAmL IEleO01Td7khEneTg1hMFJeOJ U8PBEldJLnR2CyhE4tMsAdSTN w ZAZoN8PvwMWzIUfxW885KYbqL aR6YAHpkiCyP3MsQFLuyCgnMl Y9d5N6Sk0JEFnrpud4S9HmFxt v dHI+BQ72CQSyTD86rPPpmYJzi 7oluBq4UoPcTOQsCQG1xUooJZ okx3UpTRUfU77suUQmu7A4MZK v bGx (more content not included)... Normal [facility] Consent Formson 04-26-2023 Consent Forms [id number] F Normal [facility] BUN/Creat Ratioon 04-23-2023 eGFR Non AA >60 Invalid Interpretation Code [facility] Comment on above: Performed By: #### 1 [id number] #### [facility] (DEFAULT) [address] [place] [address] eGFR AA >60 Invalid Interpretation Code [facility] Comment on above: Performed By: #### 1 [id number] #### [facility] (DEFAULT) [address] [place] [address] Creatinine [Mass/Vol] 0.69 mg/dL Low 0.90-1.30 [facility] Comment on above: Performed By: #### 1 [id number] #### [facility] (DEFAULT) [address] [place] [address] Urea nitrogen [Mass/Vol] 14 mg/dL Normal 8-26 [facility] Comment on above: Performed By: #### 1 [id number] #### [facility] (DEFAULT) [address] [place] [address] Urea nitrogen/Creatinine [Mass ratio] 20.2 mg/mg High 4.6-16.2 [facility] Comment on above: Performed By: #### 1 [id number] #### [facility] (DEFAULT) [address] [place] [address] CT Urogramon 04-23-2023 CT Urogram CLINICAL HISTORY: [...] MD 04/23/23 3:17 pm Technologist: DARYA MANN [facility] Provider Orderson 04-21-2023 Provider Orders [id number] IFF [facility] Provider Orderson 03-16-2023 Provider Orders [id number] FF [facility] UA RANDOMon 06-05-2022 Bilirubin Ql (U) Negative Normal NEGATIVE [facility] Comment on above: Performed By: #### C MP, LIPID #### [facility] [address] [place] [address] Dr. Kylee Bunch Clarity (U) CLEAR Normal CLEAR [facility] Comment on above: Performed By: #### C MP, LIPID #### [facility] [address] [place] [address] Dr. Kylee Bunch Color (U) YELLOW Normal YELLOW [facility] Comment on above: Performed By: #### C MP, LIPID #### [facility] [address] [place] [address] Dr. Kylee Bunch Glucose Ql (U) Negative Normal NEGATIVE [facility] Comment on above: Performed By: #### C MP, LIPID #### [facility] [address] [place] [address] Dr. Kylee Bunch Hemoglobin Ql (U) TRACE-INTACT Abnormal NEGATIVE [facility] Comment on above: Performed By: #### C MP, LIPID #### [facility] [address] [place] [address] Dr. Kylee Bunch Ketones Ql (U) TRACE Abnormal NEGATIVE [facility] Comment on above: Performed By: #### C MP, LIPID #### [facility] [address] [place] [address] Dr. Kylee Bunch LEUKOCYTES Negative Normal NEGATIVE [facility] Comment on above: Performed By: #### C MP, LIPID #### [facility] [address] [place] [address] Dr. Kylee Bunch Nitrite Ql (U) Negative Normal NEGATIVE [facility] Comment on above: Performed By: #### C MP, LIPID #### [facility] [address] [place] [address] Dr. Kylee Bunch pH (U) 5.5 [pH] Normal 5-[address] [facility] Comment on above: Performed By: #### C MP, LIPID #### [facility] [address] [place] [address] Dr. Kylee Bunch SPEC GRAVITY >=1.030 Abnormal 1.005-<=1. [address] [facility] Comment on above: Performed By: #### C MP, LIPID #### [facility] [address] [place] [address] Dr. Kylee Bunch UA PROTEIN Negative Normal NEGATIVE/ TRACE [facility] Comment on above: Performed By: #### C MP, LIPID #### [facility] [address] [place] [address] Dr. Kylee Bunch Urobilinogen Qn (U) 0.2 {Gemini'U}/dL Normal 0.2 - 1. [address] [facility] Comment on above: Performed By: #### C MP, LIPID #### [facility] [address] [place] [address] Dr. Kylee Bunch CBC AUTO DIFFon 05-14-2022 BASO # 0.0 103/ul Normal 0.0-0.[address] [facility] Comment on above: Performed By: #### C MP, LIPID #### [facility] [address] [place] [address] Dr. Kylee Bunch Basophils/100 WBC (Bld) 0.7 % Normal 0.2-2.[address] [facility] Comment on above: Performed By: #### C MP, LIPID #### [facility] [address] [place] [address] Dr. Kylee Bunch EO # 0.1 103/ul Normal 0.0-0.[address] [facility] Comment on above: Performed By: #### C MP, LIPID #### [facility] [address] [place] [address] Dr. Kylee Bunch Eosinophils/100 WBC (Bld) 2.6 % Normal 0.9-7.[address] [facility] Comment on above: Performed By: #### C MP, LIPID #### [facility] [address] [place] [address] Dr. Kylee Bunch Erythrocyte distribution width (RBC) [Ratio] 17.2 % Critically high 11.0-15.[address] [facility] Comment on above: Performed By: #### C MP, LIPID #### [facility] [address] [place] [address] Dr. Kylee Bunch Hematocrit (Bld) [Volume fraction] 36.1 % Critically low 42.0-54.[address] [facility] Comment on above: Performed By: #### C MP, LIPID #### [facility] [address] [place] [address] Dr. Kylee Bunch Hemoglobin (Bld) [Mass/Vol] 12.1 g/dL Critically low 14.0-18.[address] [facility] Comment on above: Performed By: #### C MP, LIPID #### [facility] [address] [place] [address] Dr. Kylee Bunch IG # 0.01 10e3/ul Normal 0.00-0.03 [facility] Comment on above: Performed By: #### C MP, LIPID #### [facility] [address] [place] [address] Dr. Kylee Bunch IG % 0.2 % Normal 0.0-0.5 [facility] Comment on above: Performed By: #### C MP, LIPID #### [facility] [address] [place] [address] Dr. Kylee Bunch LYMPH # 1.7 103/ul Normal 1.2-3.8 [facility] Comment on above: Performed By: #### C MP, LIPID #### [facility] [address] [place] [address] Dr. Kylee Bunch Lymphocytes/100 WBC (Bld) 30.9 % Normal 20.5-60.[address] [facility] Comment on above: Performed By: #### C MP, LIPID #### [facility] [address] [place] [address] Dr. Kylee Bunch MANUAL DIFF REQ NO Normal [facility] Comment on above: Performed By: #### C MP, LIPID #### [facility] [address] [place] [address] Dr. Kylee Bunch MCH (RBC) [Entitic mass] 27.4 pg Normal 25.9-34.[address] [facility] [address] [facility] Comment on above: Performed By: #### C MP, LIPID #### [facility] [address] [place] [address] Dr. Kylee Bunch MCHC (RBC) [Mass/Vol] 33.5 g/dL Normal 29.9-35.2 [facility] Comment on above: Performed By: #### C MP, LIPID #### [facility] [address] [place] [address] Dr. Kylee Bunch MCV (RBC) [Entitic vol] 81.9 fL Normal 80.0-94.0 [facility] Comment on above: Performed By: #### C MP, LIPID #### [facility] [address] [place] [address] Dr. Kylee Bunch MONO # 0.7 103/ul Normal 0.3-0.8 [facility] Comment on above: Performed By: #### C MP, LIPID #### [facility] [address] [place] [address] Dr. Kylee Bunch Monocytes/100 WBC (Bld) 12.9 % Critically high 1.7-12.0 [facility] Comment on above: Performed By: #### C MP, LIPID #### [facility] [address] [place] [address] Dr. Kylee Bunch NEUT # 2.9 103/ul Normal 1.4-6.5 [facility] Comment on above: Performed By: #### C MP, LIPID #### [facility] [address] [place] [address] Dr. Kylee Bunch Neutrophils/100 WBC (Bld) 52.7 % Normal 43.0-75.0 [facility] Comment on above: Performed By: #### C MP, LIPID #### [facility] [address] [address] [address] Kylee Bunch PLT 213 103/ul Normal 150-[address] [facility] Comment on above: Performed By: #### C MP, LIPID #### [facility] [address] [address] [address] Kylee Bunch RBC 4.41 106/ul Critically low 4.70-6.10 [facility] Comment on above: Performed By: #### C MP, LIPID #### [facility] [address] [place] [address] Dr. Kylee Bunch WBC 5.4 103/ul Normal 4.0-11.[address] [facility] Comment on above: Performed By: #### C MP, LIPID #### [facility] [address] [place] [address] Dr. Kylee Bunch LIPID PROFILEon 05-14-2022 CHOL-HDL RATIO NORM SEE BELOW Normal [facility] Comment on above: Result Comment: 3.3 - 4.4 LOW RISK 4.4 - 7.1 AVERAGE RISK 7.1 - 11.0 MODERATE RISK >11.0 HIGH RISK Performed By: #### C MP, LIPID #### [facility] [address] [place] [address] Dr. Kylee Bunch Cholesterol [Mass/Vol] 166 mg/dL Normal <=200 [facility] Comment on above: Performed By: #### C MP, LIPID #### [facility] [address] [place] [address] Dr. Kylee Bunch Cholesterol in HDL [Mass/Vol] 71 mg/dL Critically high 40-[address] [facility] Comment on above: Performed By: #### C MP, LIPID #### [facility] [address] [address] [address] Kylee Bunch Cholesterol in LDL [Mass/Vol] 84.8 mg/dL Normal [facility] Comment on above: Performed By: #### C MP, LIPID #### [facility] [address] [place] [address] Dr. Kylee Bunch Cholesterol.total/Chol esterol in HDL [Mass ratio] 2.3 {ratio} Normal [facility] Comment on above: Performed By: #### C MP, LIPID #### [facility] [address] [address] [address] Kylee Bunch HDL NORMAL > or = 60 mg/dl - LO W CARDIOVASCULAR RISK <40 mg/dl - HIGH CARDIOVASCULAR RISK Normal [facility] Comment on above: Performed By: #### C MP, LIPID #### [facility] [address] [address] [address] Kylee Bunch LDL CALC NORMAL SEE BELOW Normal [facility] Comment on above: Result Comment: <100 mg/dl OPTIMAL 100 - 129 mg/dl NEAR OR ABOVE OPTIMAL 130 - 159 mg/dl BORDERLINE HIGH 160 - 189 mg/dl HIGH >190 mg/dl VERY HIGH Performed By: #### C MP, LIPID #### [facility] [address] [place] [address] Dr. Kylee Bunch Triglyceride [Mass/Vol] 51 mg/dL Normal <=[address] [facility] Comment on above: Performed By: #### C MP, LIPID #### [facility] [address] [place] [address] Dr. Kylee Bunch VLDL CALC 10.2 mg/dL Normal [facility] Comment on above: Performed By: #### C MP, LIPID #### [facility] [address] [place] [address] Dr. Kylee Bunch MICROALBUMIN, RAND URon 11-0 mALB 3.0 mg/L Normal <=30.[address] [facility] Comment on above: Performed By: #### M ALBR #### [facility] [address] [place] [address] Dr. Kylee Bunch PROF 14(COMP METB)on 022 Albumin [Mass/Vol] 3.5 g/dL Normal 3.4-5.0 [facility] Comment on above: Performed By: #### C MP, LIPID #### [facility] [address] [place] [address] Dr. Kylee Bunch Albumin/Globulin [Mass ratio] 1.0 {ratio} Normal [facility] Comment on above: Performed By: #### C MP, LIPID #### [facility] [address] [address] [address] Kylee Bunch ALP [Catalytic activity/Vol] 97 U/L Normal 46-[address] [facility] Comment on above: Performed By: #### C MP, LIPID #### [facility] [address] [address] [address] Kylee Bunch ALT [Catalytic activity/Vol] 29 U/L Normal 16-[address] [facility] Comment on above: Performed By: #### C MP, LIPID #### [facility] [address] [address] [address] Kylee Bunch Anion gap [Moles/Vol] 6.7 mmol/L Normal [facility] Comment on above: Performed By: #### C MP, LIPID #### [facility] [address] [address] [address] Kylee Bunch AST [Catalytic activity/Vol] 28 U/L Normal 15-[address] [facility] Comment on above: Performed By: #### C MP, LIPID #### [facility] [address] [address] [address] Kylee Bunch Bilirubin [Mass/Vol] 0.4 mg/dL Normal 0.2-1.[address] [facility] Comment on above: Performed By: #### C MP, LIPID #### [facility] [address] [address] [address] Kylee Bunch Calcium [Mass/Vol] 8.9 mg/dL Normal 8.5-10.1 [facility] Comment on above: Performed By: #### C MP, LIPID #### [facility] [address] [address] [address] Kylee Bunch Chloride [Moles/Vol] 99 mmol/L Normal 98-[address] [facility] Comment on above: Performed By: #### C MP, LIPID #### [facility] [address] [address] [address] Kylee Bunch CO2 [Moles/Vol] 33.4 mmol/L Critically high 21.0-32.[address] [facility] Comment on above: Performed By: #### C MP, LIPID #### [facility] [address] [address] [address] Kylee Bunch Creatinine [Mass/Vol] 0.80 mg/dL Normal 0.70-1.[address] [facility] Comment on above: Performed By: #### C MP, LIPID #### [facility] [address] [address] [address] Kylee Bunch EGFR-AF SENEGALESE >60 Normal >=60 [facility] Comment on above: Performed By: #### C MP, LIPID #### [facility] [address] [address] [address] Kylee Bunch EGFR-NON AF SENEGALESE >60 Normal >=[address] [facility] Comment on above: Performed By: #### C MP, LIPID #### [facility] [address] [address] [address] Kylee Bunch Globulin (S) [Mass/Vol] 3.4 g/dL Normal [facility] Comment on above: Performed By: #### C MP, LIPID #### [facility] [address] [address] [address] Kylee Bunch Glucose [Mass/Vol] 188 mg/dL Critically high 74-106 [facility] Comment on above: Performed By: #### C MP, LIPID #### [facility] [address] [place] [address] Dr. Kylee Bunch Potassium [Moles/Vol] 4.1 mmol/L Normal 3.5-5.[address] [facility] Comment on above: Performed By: #### C MP, LIPID #### [facility] [address] [address] [address] Kylee Bunch Protein [Mass/Vol] 6.9 g/dL Normal 6.4-8.2 [facility] Comment on above: Performed By: #### C MP, LIPID #### [facility] [address] [address] [address] Kylee Bunch Sodium [Moles/Vol] 135 mmol/L Critically low 136-145 [facility] Comment on above: Performed By: #### C MP, LIPID #### [facility] [address] [place] [address] Dr. Kylee Bunch Urea nitrogen [Mass/Vol] 15.0 mg/dL Normal 7.0-18.[address] [facility] Comment on above: Performed By: #### C MP, LIPID #### [facility] [address] [place] [address] Dr. Kylee Bunch Urea nitrogen/Creatinine [Mass ratio] 18.8 mg/mg Normal [facility] Comment on above: Performed By: #### C MP, LIPID #### [facility] [address] [place] [address] Dr. Kylee Bunch UA RANDOM W/MICROSCOPICon BACTERIA NONE SEEN Normal NONE SEEN [facility] Comment on above: Performed By: #### C MP, LIPID #### [facility] [address] [place] [address] Dr. Kylee Bunch Bilirubin Ql (U) Negative Normal NEGATIVE [facility] Comment on above: Performed By: #### C MP, LIPID #### [facility] [address] [place] [address] Dr. Kylee Bunch CAST NONE SEEN Normal NONE SEEN [facility] Comment on above: Performed By: #### C MP, LIPID #### [facility] [address] [place] [address] Dr. Kylee Bunch Clarity (U) CLEAR Normal CLEAR [facility] Comment on above: Performed By: #### C MP, LIPID #### [facility] [address] [place] [address] Dr. Kylee Bunch Color (U) LT. YELLOW Normal YELLOW [facility] Comment on above: Performed By: #### C MP, LIPID #### [facility] [address] [place] [address] Dr. Kylee Bunch Crystals LM Nom (Urine sed) NONE SEEN Normal NONE SEEN [facility] Comment on above: Performed By: #### C MP, LIPID #### [facility] [address] [place] [address] Dr. Kylee Bunch Epithelial cells LM Ql (Urine sed) FEW Abnormal NONE SEEN /RARE [facility] Comment on above: Performed By: #### C MP, LIPID #### [facility] [address] [address] [address] Kylee Bunch Glucose Ql (U) Negative Normal NEGATIVE [facility] Comment on above: Performed By: #### C MP, LIPID #### [facility] [address] [address] [address] Kylee Bunch Hemoglobin Ql (U) TRACE-LYSED Abnormal NEGATIVE [facility] Comment on above: Performed By: #### C MP, LIPID #### [facility] [address] [address] [address] Kylee Bunch Ketones Ql (U) Negative Normal NEGATIVE [facility] Comment on above: Performed By: #### C MP, LIPID #### [facility] [address] [place] [address] Dr. Kylee Bunch LEUKOCYTES Negative Normal NEGATIVE [facility] Comment on above: Performed By: #### C MP, LIPID #### [facility] [address] [address] [address] Kylee Bunch MUCOUS NONE SEEN Normal NONE SEEN [facility] Comment on above: Performed By: #### C MP, LIPID #### [facility] [address] [place] [address] Dr. Kylee Bunch Nitrite Ql (U) Negative Normal NEGATIVE [facility] Comment on above: Performed By: #### C MP, LIPID #### [facility] [address] [place] [address] Dr. Kylee Bunch pH (U) 6.0 [pH] Normal 5-[address] [facility] Comment on above: Performed By: #### C MP, LIPID #### [facility] [address] [place] [address] Dr. Kylee Bunch RBC 2-5 Abnormal 0-[address] [facility] Comment on above: Performed By: #### C MP, LIPID #### [facility] [address] [place] [address] Dr. Kylee Bunch SPEC GRAVITY 1.020 Normal 1.005-<=1. [address] [facility] Comment on above: Performed By: #### C MP, LIPID #### [facility] [address] [address] [address] Kylee Bunch UA PROTEIN Negative Normal NEGATIVE/ TRACE [facility] Comment on above: Performed By: #### C MP, LIPID #### [facility] [address] [place] [address] Dr. Kylee Bunch Urobilinogen Qn (U) 0.2 {Gemini'U}/dL Normal 0.2 - 1. [address] [facility] Comment on above: Performed By: #### C MP, LIPID #### [facility] [address] [address] [address] Kylee Bunch WBC NONE SEEN Normal NONE SEEN [facility] Comment on above: Performed By: #### C MP, LIPID #### [facility] [address] [place] [address] Dr. Kylee Bunch Basic Metab w/rfx MGon 01-07 (cont.) Normal [facility] Comment on above: Result Comment: Aver age GFR for 70 or more years old: 75 mL/min/1.73sq m Chronic Kidney Disease: <60 mL/min/1.73sq m Kidney failure: <15 mL/min/1.73sq m eGFR calculated using average adult body mass. Additional eGFR calculator available at: http://www.Visual[employer]/multiple_crcl_2012.htm Performed By: #### C DP, MELVIN, BMPX, MG, IPF #### [place] [id number] Orthopedic Specialist: Francisco J Fonseca MD Anion gap [Moles/Vol] 9 mmol/L Normal 9-17 [facility] Comment on above: Performed By: #### C DP, MELVIN, BMPX, MG, IPF #### [address] [id number] Orthopedic Specialist: Francisco J Fonseca MD Calcium [Mass/Vol] 7.8 mg/dL Low 8.6-10.4 [facility] Comment on above: Performed By: #### C DP, MELVIN, BMPX, MG, IPF #### [facility] [address] [place] [address] Orthopedic Specialist: Francisco J Fonseca MD Chloride [Moles/Vol] 102 mmol/L Normal 98-107 [facility] Comment on above: Performed By: #### C DP, MELVNI, BMPX, MG, IPF #### [facility] [address] [place] [address] Orthopedic Specialist: Francisco J Fonseca MD CO2 [Moles/Vol] 24 mmol/L Normal 20-31 [facility] Comment on above: Performed By: #### C DP, MELVIN, BMPX, MG, IPF #### [address] [address] Orthopedic Specialist: Francisco J Fonseca MD Creatinine [Mass/Vol] 0.49 mg/dL Low 0.70-1.20 [facility] Comment on above: Performed By: #### C DP, MELVIN, BMPX, MG, IPF #### [facility] [address] [place] [address] Orthopedic Specialist: Francisco J Fonseca MD GFR, Amer >60 Normal >60 [facility] Comment on above: Performed By: #### C DP, MELVIN, BMPX, MG, IPF #### [facility] [address] [place] [address] Orthopedic Specialist: Francisco J Fonseca MD GFR,non Amer >60 Normal >60 [facility] Comment on above: Performed By: #### C DP, MELVIN, BMPX, MG, IPF #### [facility] [address] [place] [address] Orthopedic Specialist: Francisco J Fonseca MD Glucose [Mass/Vol] 79 mg/dL Normal 70-99 [facility] Comment on above: Performed By: #### C DP, MELVIN, BMPX, MG, IPF #### [address] [address] Orthopedic Specialist: Francisco J Fonseca MD Potassium [Moles/Vol] 3.5 mmol/L Low 3.7-5.3 [facility] Comment on above: Performed By: #### C DP, MELVIN, BMPX, MG, IPF #### [address] [address] Orthopedic Specialist: Francisco J Fonseca MD Sodium [Moles/Vol] 135 mmol/L Normal 135-144 [facility] Comment on above: Performed By: #### C DP, MELVIN, BMPX, MG, IPF #### [address] [address] Orthopedic Specialist: Francisco J Fonseca MD Urea nitrogen [Mass/Vol] 7 mg/dL Low 8-23 [facility] Comment on above: Performed By: #### C DP, MELVIN, BMPX, MG, IPF #### [address] [address] Orthopedic Specialist: Francisco J Fonseca MD CBC with Diffon 01-07-2022 Abs. Basophil 0.00 k/uL Normal 0.0-0.2 [facility] Comment on above: Performed By: #### C DP #### [address] [address] Orthopedic Specialist: FranciscoJ Fonseca MD Abs.Imm.Granulocyte 0.00 k/uL Normal 0.00-0.30 [facility] Comment on above: Performed By: #### C DP #### [address] [address] Orthopedic Specialist: Francisco J Fonseca MD Abs.Neutrophil (Seg) 8.33 k/uL High 1.8-7.7 [facility] Comment on above: Performed By: #### C DP #### [address] [address] Orthopedic Specialist: Francisco J Fonseca MD Eosinophils (Bld) [#/Vol] 0.11 10*3/uL Normal 0.0-0.4 [facility] Comment on above: Performed By: #### C DP #### [address] [address] Orthopedic Specialist: Francisco J Fonseca MD Lymphocytes (Bld) [#/Vol] 1.22 10*3/uL Normal 1.0-4.8 [facility] Comment on above: Performed By: #### C DP #### [address] [address] Orthopedic Specialist: Francisco J Fonseca MD Monocytes (Bld) [#/Vol] 1.44 10*3/uL High 0.1-0.8 [facility] Comment on above: Performed By: #### C DP #### [address] [address] Orthopedic Specialist: Francisco J Fonseca MD Neutrophil (Seg) 75 % High 36-66 [facility] Comment on above: Performed By: #### C DP #### [address] [address] Orthopedic Specialist: Francisco J Fonseca MD NRBC Automated 0.0 per 100 WBC Normal 0.0 [facility] Comment on above: Performed By: #### C DP #### [address] [address] Orthopedic Specialist: Francisco J Fonseca MD WBC (Bld) [#/Vol] 11.1 10*3/uL Normal 3.5-11.3 [facility] Comment on above: Performed By: #### C DP #### [address] [address] Orthopedic Specialist: Francisco J Fonseca MD Basophils/100 WBC (Bld) 0 % Normal 0-2 [facility] Comment on above: Performed By: #### C DP #### [address] [address] Orthopedic Specialist: Francisco J Fonseca MD Eosinophils/100 WBC (Bld) 1 % Normal 1-4 [facility] Comment on above: Performed By: #### C DP #### [address] [address] Orthopedic Specialist: Francisco J Fonseca MD Immature granulocytes/100 WBC (Bld) 0 % Normal 0 [facility] Comment on above: Performed By: #### C DP #### [address] [address] Orthopedic Specialist: Francisco J Fonseca MD Lymphocytes/100 WBC (Bld) 11 % Low 24-44 [facility] Comment on above: Performed By: #### C DP #### [address] [address] Orthopedic Specialist: Francisco J Fonseca MD Monocytes/100 WBC (Bld) 13 % High 1-7 [facility] Comment on above: Performed By: #### C DP #### [address] [address] Orthopedic Specialist: Francisco J Fonseca MD Morphology Walter (Bld) [Interp] ANISOCYTOSIS PRESENT Normal [facility] Comment on above: Result Comment: MICR OCYTOSIS PRESENT 1+ TARGET CELLS 1+ ACANTHOCYTES Performed By: #### C DP #### [address] [address] Orthopedic Specialist: Francisco J Fonseca MD Erythrocyte distribution width (RBC) [Ratio] 17.3 % High 11.8-14.4 [facility] Comment on above: Performed By: #### C DP #### [address] [address] Orthopedic Specialist: Francisco J Fonseca MD Hematocrit (Bld) [Volume fraction] 36.6 % Low 40.7-50.3 [facility] Comment on above: Performed By: #### C DP #### [place] [address] Orthopedic Specialist: Francisco J Fonseca MD Hemoglobin (Bld) [Mass/Vol] 13.0 g/dL Normal 13.0-17.0 [facility] Comment on above: Performed By: #### C DP #### [place] [address] Orthopedic Specialist: Francisco J Fonseca MD MCH (RBC) [Entitic mass] 26.5 pg Normal 25.2-33.5 [facility] Comment on above: Performed By: #### C DP #### [place] [address] Orthopedic Specialist: Francisco J Fonseca MD MCHC (RBC) [Mass/Vol] 35.5 g/dL High 28.4-34.8 [facility] Comment on above: Performed By: #### C DP #### [place] [address] Orthopedic Specialist: Francisco J Fonseca MD MCV (RBC) [Entitic vol] 74.5 fL Low 82.6-102.9 [facility] Comment on above: Performed By: #### C DP #### [place] [address] Orthopedic Specialist: Francisco J Fonseca MD Platelet Count See Reflexed IPF Result Normal 138-453 [facility] Comment on above: Performed By: #### C DP #### [place] [address] Orthopedic Specialist: Francisco J Fonseca MD RBC (Bld) [#/Vol] 4.91 10*6/uL Normal 4.21-5.77 [facility] Comment on above: Performed By: #### C DP #### [facility] [address] [place] [address] Orthopedic Specialist: Francisco J Fonseca MD Laboratory - Chemistry and C hemistry - challengeon 01-07-2022 Magnesium [Mass/Vol] 1.5 mg/dL Low 1.6 - 2 .6 mg/dL [facility] Anion gap [Moles/Vol] 9 mmol/L 9 - 17 mmol/L [facility] Calcium [Mass/Vol] 7.8 mg/dL Low 8.6 - 10. 4 mg/dL [facility] [employer] Chloride [Moles/Vol] 102 mmol/L 98 - 10 7 mmol/L [facility] [employer] CO2 [Moles/Vol] 24 mmol/L 20 - 31 mmol/L [facility] [employer] Creatinine [Mass/Vol] 0.49 mg/dL Low 0.70 - 1.20 mg/dL [facility] GFR/1.73 sq M.predicted MDRD (S/P/Bld) [Vol rate/Area] [facility] Comment on above: Average GFR for 70 o r more years old: 75 mL/min/1.73sq m Chronic Kidney Disease: <60 mL/min/1.73sq m Kidney failure: <15 mL/min/1.73sq m eGFR calculated using average adult body mass. Additional eGFR calculator available at: http://www.Visual[employer]/multiple_crcl_2012.htm Glucose [Mass/Vol] 79 mg/dL 70 - 99 mg/dL [facility] Phosphate [Mass/Vol] 2.3 mg/dL Low 2.5 - 4 .5 mg/dL [facility] [employer] Potassium [Moles/Vol] 3.5 mmol/L Low 3.7 - 5.3 mmol/L [facility] [employer] [facility] Sodium [Moles/Vol] 135 mmol/L 135 - 144 mmol/L [facility] [employer] Urea nitrogen (BldV) [Mass/Vol] 7 mg/dL Low 8 - 23 mg/dL [facility] Laboratory - Hematology and Cell countson [...] 74.5 fL Low 82.6 - 102.9 fL [facility] Morphology Walter (Bld) [Interp] MICROCYTOSIS PRESENT [facility] Morphology Walter (Bld) [Interp] 1+ TARGET CELLS [facility] Morphology Walter (Bld) [Interp] 1+ ACANTHOCYTES [facility] Platelet distribution width (Bld) [Ratio] 17.3 % High 11.8 - 14.4 % [facility] Platelets (Bld) [#/Vol] See Reflexed IPF Result [facility] RBC (Bld) [#/Vol] 4.91 10*6/uL 4.21 - 5.77 m/uL [facility] Segmented neutrophils/100 WBC (Bld) 75 % High 36 - 66 % [facility] WBC (Bld) [#/Vol] 11.1 10*3/uL [facility] [employer] [facility] Magnesiumon 01-07-2022 Magnesium [Mass/Vol] 1.5 mg/dL Low 1.6-2.6 [facility] Comment on above: Performed By: #### C DP #### [facility] [address] [place] [address] Orthopedic Specialist: Francisco J Fonseca MD No Panel Informationon 01-07 Absolute Eos # 0.11 [facility] Absolute Immature Granulocyte 0.00 [facility] Absolute Lymph # 1.22 [facility] Absolute [place] # 1.44 High [facility] Interpretation and review of laboratory results Abnormal [facility] NRBC Automated 0.0 0.0 per 100 WBC [facility] Segs Absolute 8.33 High [facility] Platelet, Fluorescence [address] [facility] [facility] Comment on above: ORDERED BY LAB Platelet, Immature Fraction 10.1 % 1.1 - 10.3 % [facility] Comment on above: ORDERED BY LAB [facility] Interpretation and review of laboratory results Abnormal [facility] GFR >60 >60 mL/min [facility] GFR Non- >60 >60 mL/min [facility] Interpretation and review of laboratory results Abnormal [facility] PLT, Immature Fract.on 01-07 Platelet, Fluoresc. 230 k/uL Normal 138-453 [facility] Comment on above: Result Comment: ORDE RED BY LAB Performed By: #### C DP #### [facility] [address] [place] [address] Orthopedic Specialist: Francisco J Fonseca MD PLT, Immature Fract. 10.1 % Normal 1.1-10.3 [facility] Comment on above: Result Comment: ORDE RED BY LAB Performed By: #### C DP #### [facility] [place], [place] [id number] Orthopedic Specialist: Francisco J Fonseca MD Phosphorus, Inorg.on 022 Phosphorus, Inorg. 2.3 mg/dL Low 2.5-4.5 [facility] Comment on above: Performed By: #### C DP, MELVIN, BMPX, MG, IPF #### [facility] [address] [place], [place] [id number] Orthopedic Specialist: Francisco J Fonseca MD Basic Metab w/rfx MGon 01-06 (cont.) Normal [facility] Comment on above: Result Comment: Aver age GFR for 70 or more years old: 75 mL/min/1.73sq m Chronic Kidney Disease: <60 mL/min/1.73sq m Kidney failure: <15 mL/min/1.73sq m eGFR calculated using average adult body mass. Additional eGFR calculator available at: http://www.Krillion.[employer]able[employer]/multiple_crcl_2012.htm Performed By: #### C DP, MELVIN, BMPX, IPF #### [facility] [address] [place] [address] Orthopedic Specialist: Francisco J Fonseca MD Anion gap [Moles/Vol] 11 mmol/L Normal 9-17 [facility] Comment on above: Performed By: #### C DP, MELVIN, BMPX, IPF #### [facility] [address] [place] [address] Orthopedic Specialist: Francisco J Fonseca MD Calcium [Mass/Vol] 7.7 mg/dL Low 8.6-10.4 [facility] Comment on above: Performed By: #### C DP, MELVIN, BMPX, IPF #### [facility] [address] [place] [address] Orthopedic Specialist: Francisco J Fonseca MD Chloride [Moles/Vol] 99 mmol/L Normal 98-107 [facility] Comment on above: Performed By: #### C DP, MELVIN, BMPX, IPF #### [facility] [address] [place] [address] Orthopedic Specialist: Francisco J Fonseca MD CO2 [Moles/Vol] 23 mmol/L Normal 20-31 [facility] Comment on above: Performed By: #### C DP, MELVIN, BMPX, IPF #### [facility] [address] [place] [address] Orthopedic Specialist: Francisco J Fonseca MD Creatinine [Mass/Vol] 0.50 mg/dL Low 0.70-1.20 [facility] Comment on above: Performed By: #### C DP, MELVIN, BMPX, IPF #### [facility] [address] [place] [address] [phone] Orthopedic Specialist: Francisco J Fonseca MD GFR, Amer >60 Normal >60 [facility] Comment on above: Performed By: #### C DP, MELVIN, BMPX, IPF #### [facility] [address] [place] [address] Orthopedic Specialist: Francisco J Fonseca MD GFR,non Amer >60 Normal >60 [facility] Comment on above: Performed By: #### C DP, MELVIN, BMPX, IPF #### [facility] [address] [place] [address] Orthopedic Specialist: Francisco J Fonseca MD Glucose [Mass/Vol] 149 mg/dL High 70-99 [facility] Comment on above: Performed By: #### C DP, MELVIN, BMPX, IPF #### [address] [address] Orthopedic Specialist: Francisco J Fonseca MD Potassium [Moles/Vol] 3.6 mmol/L Low 3.7-5.3 [facility] Comment on above: Performed By: #### C DP, MELVIN, BMPX, IPF #### [facility] [address] [place] [address] Orthopedic Specialist: Francisco J Fonseca MD Sodium [Moles/Vol] 133 mmol/L Low 135-144 [facility] Comment on above: Performed By: #### C DP, MELVIN, BMPX, IPF #### [facility] [address] [place] [address] Orthopedic Specialist: Francisco J Fonseca MD Urea nitrogen [Mass/Vol] 11 mg/dL Normal 8-23 [facility] Comment on above: Performed By: #### C DP, MELVIN, BMPX, IPF #### [facility] [address] [place] [address] Orthopedic Specialist: Francisco J Fonseca MD CBC with Diffon 01-06-2022 Abs. Basophil 0.03 k/uL Normal 0.00-0.20 [facility] Comment on above: Performed By: #### C DP, MELVIN, BMPX, IPF #### [address] [address] Orthopedic Specialist: Francisco J Fonseca MD Abs.Imm.Granulocyte 0.05 k/uL Normal 0.00-0.30 [facility] Comment on above: Performed By: #### C DP, MELVIN, BMPX, IPF #### [address] [address] Orthopedic Specialist: Francisco J Fonseca MD Abs.Neutrophil (Seg) 11.21 k/uL High 1.50-8.10 [facility] Comment on above: Performed By: #### C DP, MELVIN, BMPX, IPF #### [place] [address] Orthopedic Specialist: Francisco J Fonseca MD Basophils/100 WBC (Bld) 0 % Normal 0-2 [facility] Comment on above: Performed By: #### C DP, MELVIN, BMPX, IPF #### [facility] [address] [place] [address] Orthopedic Specialist: Francisco J Fonseca MD Eosinophils (Bld) [#/Vol] 0.09 10*3/uL Normal 0.00-0.44 [facility] Comment on above: Performed By: #### C DP, MELVIN, BMPX, IPF #### [facility] [address] [place] [address] Orthopedic Specialist: Francisco J Fonseca MD Eosinophils/100 WBC (Bld) 1 % Normal 1-4 [facility] Comment on above: Performed By: #### C DP, MELVIN, BMPX, IPF #### [facility] [address] [place] [address] Orthopedic Specialist: Francisco J Fonseca MD Erythrocyte distribution width (RBC) [Ratio] 18.4 % High 11.8-14.4 [facility] Comment on above: Performed By: #### C DP, MELVIN, BMPX, IPF #### [facility] [address] [place] [address] Orthopedic Specialist: Francisco J Fonseca MD Hematocrit (Bld) [Volume fraction] 38.2 % Low 40.7-50.3 [facility] Comment on above: Performed By: #### C DP, MELVIN, BMPX, IPF #### [facility] [address] [place] [address] Orthopedic Specialist: Francisco J Fonseca MD Hemoglobin (Bld) [Mass/Vol] 13.2 g/dL Normal 13.0-17.0 [facility] Comment on above: Performed By: #### C DP, MELVIN, BMPX, IPF #### [address] [address] Orthopedic Specialist: Francisco J Fonseca MD Immature granulocytes/100 WBC (Bld) 0 % Normal 0 [facility] Comment on above: Performed By: #### C DP, MELVIN, BMPX, IPF #### [facility] [address] [place] [address] Orthopedic Specialist: Francisco J Fonseca MD Lymphocytes (Bld) [#/Vol] 0.82 10*3/uL Low 1.10-3.70 [facility] Comment on above: Performed By: #### C DP, MELVIN, BMPX, IPF #### [facility] [address] [place] [address] Orthopedic Specialist: Francisco J Fonseca MD Lymphocytes/100 WBC (Bld) 6 % Low 24-43 [facility] Comment on above: Performed By: #### C DP, MELVIN, BMPX, IPF #### [facility] [address] [place] [address] Orthopedic Specialist: Francisco J Fonseca MD MCH (RBC) [Entitic mass] 26.7 pg Normal 25.2-33.5 [facility] Comment on above: Performed By: #### C DP, MELVIN, BMPX, IPF #### [address] [address] Orthopedic Specialist: Francisco J Fonseca MD MCHC (RBC) [Mass/Vol] 34.6 g/dL Normal 28.4-34.8 [facility] Comment on above: Performed By: #### C DP, MELVIN, BMPX, IPF #### [address] [address] Orthopedic Specialist: Francisco J Fonseca MD MCV (RBC) [Entitic vol] 77.2 fL Low 82.6-102.9 [facility] Comment on above: Performed By: #### C DP, MELVIN, BMPX, IPF #### [address] [address] Orthopedic Specialist: Francisco J Fonseca MD Monocytes (Bld) [#/Vol] 1.14 10*3/uL Normal 0.10-1.20 [facility] Comment on above: Performed By: #### C DP, MELVIN, BMPX, IPF #### [address] [address] Orthopedic Specialist: Francisco J Fonseca MD Monocytes/100 WBC (Bld) 9 % Normal 3-12 [facility] Comment on above: Performed By: #### C DP, MELVIN, BMPX, IPF #### [address] [address] Orthopedic Specialist: Francisco J Fonseca MD Neutrophil (Seg) 84 % High 36-65 [facility] Comment on above: Performed By: #### C DP, MELVIN, BMPX, IPF #### [address] [address] Orthopedic Specialist: Francisco J Fonseca MD NRBC Automated 0.0 per 100 WBC Normal 0.0 [facility] Comment on above: Performed By: #### C DP, MELVIN, BMPX, IPF #### [facility] [address] [place] [address] Orthopedic Specialist: Francisco J Fonseca MD Platelet Count See Reflexed IPF Result Normal 138-453 [facility] Comment on above: Performed By: #### C DP, MELVIN, BMPX, IPF #### [facility] [address] [place] [address] Orthopedic Specialist: Francisco J Fonseca MD RBC (Bld) [#/Vol] 4.95 10*6/uL Normal 4.21-5.77 [facility] Comment on above: Performed By: #### C DP, MELVIN, BMPX, IPF #### [facility] [address] [place] [address] Orthopedic Specialist: Francisco J Fonseca MD RBC morphology finding Nom (Bld) ANISOCYTOSIS PRESENT Normal [facility] Comment on above: Result Comment: MICR OCYTOSIS PRESENT Performed By: #### C DP, MELVIN, BMPX, IPF #### [facility] [address] [place] [address] Orthopedic Specialist: Francisco J Fonseca MD WBC (Bld) [#/Vol] 13.3 10*3/uL High 3.5-11.3 [facility] Comment on above: Performed By: #### C DP, MELVIN, BMPX, IPF #### [facility] [address] [place] [address] Orthopedic Specialist: Francisco J Fonseca MD Laboratory - Chemistry and C hemistry - challengeon 01-06-2022 Anion gap [Moles/Vol] 11 mmol/L 9 - 17 mmol/L [facility] Calcium [Mass/Vol] 7.7 mg/dL Low 8.6 - 10. 4 mg/dL [employer] [facility] Chloride [Moles/Vol] 99 mmol/L 98 - 10 7 mmol/L [facility] CO2 [Moles/Vol] 23 mmol/L 20 - 31 mmol/L [facility] Creatinine [Mass/Vol] 0.5 mg/dL Low 0.70 - 1.20 mg/dL [facility] GFR/1.73 sq M.predicted MDRD (S/P/Bld) [Vol rate/Area] [facility] Comment on above: Average GFR for 70 o r more years old: 75 mL/min/1.73sq m Chronic Kidney Disease: <60 mL/min/1.73sq m Kidney failure: <15 mL/min/1.73sq m eGFR calculated using average adult body mass. Additional eGFR calculator available at: http://www.VisualDNA/ThermoCeramix_crcl_2011.htm Glucose [Mass/Vol] 149 mg/dL High 70 - [...] countson 01-06-2022 Basophils (Bld) [#/Vol] 0.03 10*3/uL [facility] Basophils/100 WBC (Bld) 0 % 0 - 2 % [facility] Eosinophils/100 WBC (Bld) 1 % 1 - 4 % [facility] Hematocrit (Bld) [Volume fraction] 38.2 % Low 40.7 - 50.3 % [facility] Hemoglobin (Bld) [Mass/Vol] 13.2 g/dL 13.0 - 17.0 g/dL [facility] Immature granulocytes/100 WBC (Bld) 0 % 0 [facility] Lymphocytes/100 WBC (Bld) 6 % Low 24 - 43 % [facility] MCH (RBC) [Entitic mass] 26.7 pg 25.2 - 33.5 pg [facility] MCHC (RBC) [Mass/Vol] 34.6 g/dL 28.4 - 34.8 g/dL [facility] MCV (RBC) [Entitic vol] 77.2 fL Low 82.6 - 102.9 fL [facility] Monocytes/100 WBC (Bld) 9 % 3 - 12 % [facility] Platelet distribution width (Bld) [Ratio] 18.4 % High 11.8 - 14.4 % [facility] Platelets (Bld) [#/Vol] See Reflexed IPF Result [facility] RBC (Bld) [#/Vol] 4.95 10*6/uL 4.21 - 5.77 m/uL [facility] RBC (Bld) [#/Vol] ANISOCYTOSIS PRESENT [facility] Comment on above: MICROCYTOSIS PRESENT Segmented neutrophils/100 WBC (Bld) 84 % High 36 - 65 % [facility] WBC (Bld) [#/Vol] 13.3 10*3/uL High [facility] No Panel Informationon 01-06 Platelet, Fluorescence 252 [facility] Platelet, Immature Fraction 10.1 % 1.1 - 10.3 % [facility] Absolute Eos # 0.09 [facility] Absolute Immature Granulocyte 0.05 [facility] Absolute Lymph # 0.82 Low [facility] Absolute [place] # 1.14 [facility] Interpretation and review of laboratory results Abnormal [facility] NRBC Automated 0.0 0.0 per 100 WBC [facility] Segs Absolute 11.21 High [facility] GFR >60 >60 mL/min [facility] GFR Non- >60 >60 mL/min [facility] Interpretation and review of laboratory results Abnormal [facility] PLT, Immature Fract.on 01-06 Platelet, Fluoresc. 252 k/uL Normal 138-453 [facility] Comment on above: Performed By: #### C DP, MELVIN, BMPX, IPF #### [facility] [address] [place] [address] Orthopedic Specialist: Francisco J Fonseca MD PLT, Immature Fract. 10.1 % Normal 1.1-10.3 [facility] Comment on above: Performed By: #### C DP, MELVIN, BMPX, IPF #### [facility] [address] [place] [address] Orthopedic Specialist: Francisco J Fonseca MD Phosphorus, Inorg.on 022 Phosphorus, Inorg. 2.5 mg/dL Normal 2.5-4.5 [facility] Comment on above: Performed By: #### C DP, MELVIN, BMPX, IPF #### [facility] [address] [place] [address] Orthopedic Specialist: Francisco J Fonseca MD Basic Metab w/rfx MGon 01-05 Potassium [Moles/Vol] 3.4 mmol/L Low 3.7-5.3 [facility] Comment on above: Performed By: #### C DP, MELVIN, BMPX, IPF #### [facility] [address] [place] [address] Orthopedic Specialist: Francisco J Fonseca MD Urea nitrogen [Mass/Vol] 14 mg/dL Normal 8-23 [facility] Comment on above: Performed By: #### C DP, MELVIN, BMPX, IPF #### [facility] [address] [place] [address] Orthopedic Specialist: Francisco J Fonseca MD Anion gap [Moles/Vol] 12 mmol/L Normal 9-17 [facility] Comment on above: Performed By: #### C DP, MELVIN, BMPX, IPF #### [facility] [address] [place] [address] Orthopedic Specialist: Francisco J Fonseca MD Calcium [Mass/Vol] 8.1 mg/dL Low 8.6-10.4 [facility] Comment on above: Performed By: #### C DP, MELVIN, BMPX, IPF #### [facility] [address] [place] [address] Orthopedic Specialist: Francisco J Fonseca MD Chloride [Moles/Vol] 98 mmol/L Normal 98-107 [facility] Comment on above: Performed By: #### C DP, MELVIN, BMPX, IPF #### [facility] [address] [place] [address] Orthopedic Specialist: Francisco J Fonseca MD CO2 [Moles/Vol] 24 mmol/L Normal 20-31 [facility] Comment on above: Performed By: #### C DP, MELVIN, BMPX, IPF #### [facility] [address] [place] [address] Orthopedic Specialist: Francisco J Fonseca MD Creatinine [Mass/Vol] 0.54 mg/dL Low 0.70-1.20 [facility] Comment on above: Performed By: #### C DP, MELVIN, BMPX, IPF #### [facility] [address] [place] [address] Orthopedic Specialist: Francisco J Fonseca MD Glucose [Mass/Vol] 122 mg/dL High 70-99 [facility] Comment on above: Performed By: #### C DP, MELVIN, BMPX, IPF #### [facility] [address] [place] [address] Orthopedic Specialist: Francisco J Fonseca MD Sodium [Moles/Vol] 134 mmol/L Low 135-144 [facility] Comment on above: Performed By: #### C DP, MELVIN, BMPX, IPF #### [facility] [address] [place] [address] Orthopedic Specialist: Francisco J Fonseca MD (cont.) [facility] Comment on above: Result Comment: Aver age GFR for 70 or more years old: 75 mL/min/1.73sq m Chronic Kidney Disease: <60 mL/min/1.73sq m Kidney failure: <15 mL/min/1.73sq m eGFR calculated using average adult body mass. Additional eGFR calculator available at: http://www.Krillion.[employer]able[employer]/multiple_crcl_2012.htm Performed By: #### C DP, MELVIN, BMPX, IPF #### [facility] [address] [place] [address] Orthopedic Specialist: Francisco J Fonseca MD Anion gap [Moles/Vol] 11 mmol/L Normal 9-17 [facility] Comment on above: Performed By: #### C DP, MELVIN, BMPX, IPF #### [address] [address] Orthopedic Specialist: Francisco J Fonseca MD Calcium [Mass/Vol] 9.1 mg/dL Normal 8.6-10.4 [facility] Comment on above: Performed By: #### C DP, MELVIN, BMPX, IPF #### [facility] [address] [place] [address] Orthopedic Specialist: Francisco J Fonseca MD Chloride [Moles/Vol] 99 mmol/L Normal 98-107 [facility] Comment on above: Performed By: #### C DP, MELVIN, BMPX, IPF #### [facility] [address] [place] [address] Orthopedic Specialist: Francisco J Fonseca MD CO2 [Moles/Vol] 25 mmol/L Normal 20-31 [facility] Comment on above: Performed By: #### C DP, MELVIN, BMPX, IPF #### [facility] [address] [place] [address] Orthopedic Specialist: Francisco J Fonseca MD Creatinine [Mass/Vol] 0.57 mg/dL Low 0.70-1.20 [facility] Comment on above: Performed By: #### C DP, MELVIN, BMPX, IPF #### [facility] [address] [place] [address] Orthopedic Specialist: Francisco J Fonseca MD GFR, Amer >60 Normal >60 [facility] Comment on above: Performed By: #### C DP, MELVIN, BMPX, IPF #### [address] [address] Orthopedic Specialist: Francisco J Fonseca MD GFR,non Amer >60 Normal >60 [facility] Comment on above: Performed By: #### C DP, MELVIN, BMPX, IPF #### [facility] [address] [place] [address] Orthopedic Specialist: Francisco J Fonseca MD Glucose [Mass/Vol] 129 mg/dL High 70-99 [facility] Comment on above: Performed By: #### C DP, MELVIN, BMPX, IPF #### [address] [address] Orthopedic Specialist: Francisco J Fonseca MD Potassium [Moles/Vol] 3.5 mmol/L Low 3.7-5.3 [facility] Comment on above: Performed By: #### C DP, MELVIN, BMPX, IPF #### [address] [address] Orthopedic Specialist: Francisco J Fonseca MD Sodium [Moles/Vol] 135 mmol/L Normal 135-144 [facility] Comment on above: Performed By: #### C DP, MELVIN, BMPX, IPF #### [facility] [address] [place] [address] Orthopedic Specialist: Francisco J Fonseca MD Urea nitrogen [Mass/Vol] 15 mg/dL Normal 8-23 [facility] Comment on above: Performed By: #### C DP, MELVIN, BMPX, IPF #### [facility] [address] [place] [phone] Orthopedic Specialist: Francisco J Fonseca MD (cont.) [facility] Comment on above: Result Comment: Aver age GFR for 70 or more years old: 75 mL/min/1.73sq m Chronic Kidney Disease: <60 mL/min/1.73sq m Kidney failure: <15 mL/min/1.73sq m eGFR calculated using average adult body mass. Additional eGFR calculator available at: http://www.VisualDNA/multiple_crcl_2012.htm Performed By: #### C DP, MELVIN, BMPX, IPF #### [facility] [address] [place] [address] Orthopedic Specialist: Francisco J Fonseca MD Anion gap [Moles/Vol] 15 mmol/L Normal 9-17 [facility] Comment on above: Performed By: #### C DP, MELVIN, BMPX, IPF #### [facility] [address] [place] [address] Orthopedic Specialist: Francisco J Fonseca MD Calcium [Mass/Vol] 8.2 mg/dL Low 8.6-10.4 [facility] Comment on above: Performed By: #### C DP, MELVIN, BMPX, IPF #### [employer] [address] [place] [address] Orthopedic Specialist: Francisco J Fonseca MD Chloride [Moles/Vol] 98 mmol/L Normal 98-107 [facility] Comment on above: Performed By: #### C DP, MELVIN, BMPX, IPF #### [employer] [address] [place] [address] Orthopedic Specialist: Francisco J Fonseca MD CO2 [Moles/Vol] 23 mmol/L Normal 20-31 [facility] Comment on above: Performed By: #### C DP, MELVIN, BMPX, IPF #### [employer] [address] [place] [address] Orthopedic Specialist: Francisco J Fonseca MD Creatinine [Mass/Vol] 0.66 mg/dL Low 0.70-1.20 [facility] Comment on above: Performed By: #### C DP, MELVIN, BMPX, IPF #### [facility] [address] [place] [address] Orthopedic Specialist: Francisco J Fonseca MD GFR, Amer >60 Normal >60 [facility] Comment on above: Performed By: #### C DP, MELVIN, BMPX, IPF #### [facility] [address] [place] [address] Orthopedic Specialist: Francisco J Fonseca MD GFR,non Amer >60 Normal >60 [facility] Comment on above: Performed By: #### C DP, MELVIN, BMPX, IPF #### [facility] [address] [place] [address] Orthopedic Specialist: Francisco J Fonseca MD Glucose [Mass/Vol] 90 mg/dL Normal 70-99 [facility] Comment on above: Performed By: #### C DP, MELVIN, BMPX, IPF #### [facility] [address] [place] [address] Orthopedic Specialist: Francisco J Fonseca MD Potassium [Moles/Vol] 3.7 mmol/L Normal 3.7-5.3 [facility] Comment on above: Performed By: #### C DP, MELVIN, BMPX, IPF #### [facility] [address] [place] [address] Orthopedic Specialist: Francisco J Fonseca MD Sodium [Moles/Vol] 136 mmol/L Normal 135-144 [facility] Comment on above: Performed By: #### C DP, MELVIN, BMPX, IPF #### [facility] [address] [place] [address] Orthopedic Specialist: Francisco J Fonseca MD Urea nitrogen [Mass/Vol] 20 mg/dL Normal 8-23 [facility] Comment on above: Performed By: #### C DP, MELVIN, BMPX, IPF #### [facility] [address] [place] [address] Orthopedic Specialist: Francisco J Fonseca MD CBC with Diffon 01-05-2022 Abs. Basophil 0.04 k/uL Normal 0.00-0.20 [facility] Comment on above: Performed By: #### C DP, MELVIN, BMPX, IPF #### [address] [address] Orthopedic Specialist: Francisco J Fonseca MD Abs.Imm.Granulocyte 0.08 k/uL Normal 0.00-0.30 [facility] Comment on above: Performed By: #### C DP, MELVIN, BMPX, IPF #### [place] [address] Orthopedic Specialist: Francisco J Fonseca MD Abs.Neutrophil (Seg) 14.26 k/uL High 1.50-8.10 [facility] Comment on above: Performed By: #### C DP, MELVIN, BMPX, IPF #### [place] [address] Orthopedic Specialist: Francisco J Fonseca MD Basophils/100 WBC (Bld) 0 % Normal 0-2 [facility] Comment on above: Performed By: #### C DP, MELVIN, BMPX, IPF #### [place] [address] Orthopedic Specialist: Francisco J Fonseca MD Eosinophils (Bld) [#/Vol] 0.11 10*3/uL Normal 0.00-0.44 [facility] Comment on above: Performed By: #### C DP, MELVIN, BMPX, IPF #### [place] [address] Orthopedic Specialist: Francisco J Fonseca MD Eosinophils/100 WBC (Bld) 1 % Normal 1-4 [facility] Comment on above: Performed By: #### C DP, MELVIN, BMPX, IPF #### [place] [address] Orthopedic Specialist: Francisco J Fonseca MD Immature granulocytes/100 WBC (Bld) 1 % High 0 [facility] Comment on above: Performed By: #### C DP, MELVIN, BMPX, IPF #### [facility] [address] [place] [address] Orthopedic Specialist: Francisco J Fonseca MD Lymphocytes (Bld) [#/Vol] 0.96 10*3/uL Low 1.10-3.70 [facility] Comment on above: Performed By: #### C DP, MELVIN, BMPX, IPF #### [facility] [address] [place] [address] Orthopedic Specialist: Francisco J Fonseca MD Lymphocytes/100 WBC (Bld) 6 % Low 24-43 [facility] Comment on above: Performed By: #### C DP, MELVIN, BMPX, IPF #### [facility] [address] [place] [address] Orthopedic Specialist: Francisco J Fonseca MD Monocytes (Bld) [#/Vol] 0.97 10*3/uL Normal 0.10-1.20 [facility] Comment on above: Performed By: #### C DP, MELVIN, BMPX, IPF #### [facility] [address] [place] [address] Orthopedic Specialist: Francisco J Fonseca MD Monocytes/100 WBC (Bld) 6 % Normal 3-12 [facility] Comment on above: Performed By: #### C DP, MELVIN, BMPX, IPF #### [facility] [address] [place] [address] Orthopedic Specialist: Francisco J Fonseca MD Neutrophil (Seg) 87 % High 36-65 [facility] Comment on above: Performed By: #### C DP, MELVIN, BMPX, IPF #### [facility] [address] [place] [address] Orthopedic Specialist: Francisco J Fonseca MD Erythrocyte distribution width (RBC) [Ratio] 18.6 % High 11.8-14.4 [facility] Comment on above: Performed By: #### C DP, MELVIN, BMPX, IPF #### [address] [address] Orthopedic Specialist: Francisco J Fonseca MD Hematocrit (Bld) [Volume fraction] 38.9 % Low 40.7-50.3 [facility] Comment on above: Performed By: #### C DP, MELVIN, BMPX, IPF #### [place] [address] Orthopedic Specialist: Francisco J Fonseca MD Hemoglobin (Bld) [Mass/Vol] 13.5 g/dL Normal 13.0-17.0 [facility] Comment on above: Performed By: #### C DP, MELVIN, BMPX, IPF #### [place] [address] Orthopedic Specialist: Francisco J Fonseca MD MCH (RBC) [Entitic mass] 26.8 pg Normal 25.2-33.5 [facility] Comment on above: Performed By: #### C DP, MELVIN, BMPX, IPF #### [place] [address] Orthopedic Specialist: Francisco J Fonseca MD MCHC (RBC) [Mass/Vol] 34.7 g/dL Normal 28.4-34.8 [facility] Comment on above: Performed By: #### C DP, MELVIN, BMPX, IPF #### [place] [address] Orthopedic Specialist: Francisco J Fonseca MD MCV (RBC) [Entitic vol] 77.3 fL Low 82.6-102.9 [facility] Comment on above: Performed By: #### C DP, MELVIN, BMPX, IPF #### [address] [place] [address] Orthopedic Specialist: Francisco J Fonseca MD NRBC Automated 0.0 per 100 WBC Normal 0.0 [facility] Comment on above: Performed By: #### C DP, MELVIN, BMPX, IPF #### [address] [address] Orthopedic Specialist: Francisco J Fonseca MD Platelet Count See Reflexed IPF Result Normal 138-453 [facility] Comment on above: Performed By: #### C DP, MELVIN, BMPX, IPF #### [facility] [address] [place] [address] Orthopedic Specialist: Francisco J Fonseca MD RBC (Bld) [#/Vol] 5.03 10*6/uL Normal 4.21-5.77 [facility] Comment on above: Performed By: #### C DP, MELVIN, BMPX, IPF #### [facility] [address] [place] [address] Orthopedic Specialist: Francisco J Fonseca MD RBC morphology finding Nom (Bld) ANISOCYTOSIS PRESENT Normal [facility] Comment on above: Result Comment: MICR OCYTOSIS PRESENT Performed By: #### C DP, MELVIN, BMPX, IPF #### [facility] [address] [place] [address] Orthopedic Specialist: Francisco J Fonseca MD WBC (Bld) [#/Vol] 16.4 10*3/uL High 3.5-11.3 [facility] Comment on above: Performed By: #### C DP, MELVIN, BMPX, IPF #### [facility] [address] [place] [address] Orthopedic Specialist: Francisco J Fonseca MD FL UGIon 01-05-2022 FL UGI EXAMINATION: SINGLE CONTRAST UPPER GI SERIES 01/05/2022 HISTORY: ORDERING SYSTEM PROVIDED HISTORY: repair perf ulcer TECHNOLOGIST PROVIDED HISTORY: repair perf ulcer COMPARISON: None. TECHNIQUE: Multiple single contrast images of the esophagus, gastroesophageal junction and stomach were obtained following the oral administration of water soluble contrast. FLUOROSCOPY DOSE AND TYPE OR TIME AND EXPOSURES: DAP [id number] FINDINGS: Contrast was administered through the indwelling [...] Howard Aldridge MD 01/05/22 Final result Normal [facility] - Chemistry and C hemistry - challengeon 01-05-2022 Magnesium [Mass/Vol] 1.4 mg/dL Low 1.6 - 2 .6 mg/dL [facility] GFR/1.73 sq M.predicted MDRD (S/P/Bld) [Vol rate/Area] [facility] [employer] [facility] Comment on above: Average GFR for 70 o r more years old: 75 mL/min/1.73sq m Chronic Kidney Disease: <60 mL/min/1.73sq m Kidney failure: <15 mL/min/1.73sq m eGFR calculated using average adult body mass. Additional eGFR calculator available at: http://www.VisualDNA/multiple_crcl_2011.htm Potassium [Moles/Vol] 3.4 mmol/L Low 3.7 - 5.3 mmol/L [facility] [employer] Urea nitrogen (BldV) [Mass/Vol] 14 mg/dL 8 - 23 mg/dL [facility] [employer] Phosphate [Mass/Vol] 2.4 mg/dL Low 2.5 - 4 .5 mg/dL [facility] Magnesium [Mass/Vol] 1.5 mg/dL Low 1.6 - 2 .6 mg/dL [facility] Anion gap [Moles/Vol] 11 mmol/L 9 - 17 mmol/L [facility] [employer] Calcium [Mass/Vol] 9.1 mg/dL 8.6 - 10. 4 mg/dL [facility] [employer] Chloride [Moles/Vol] 99 mmol/L 98 - 10 7 mmol/L [facility] CO2 [Moles/Vol] 25 mmol/L 20 - 31 [...] body mass. Additional eGFR calculator available at: http://www.VisualDNA/multiple_crcl_2011.htm Glucose [Mass/Vol] 129 mg/dL High 70 - 99 mg/dL [facility] countson 01-05-2022 Basophils (Bld) [#/Vol] 0.04 10*3/uL [facility] Basophils/100 WBC (Bld) 0 % 0 - 2 % [facility] Eosinophils/100 WBC (Bld) 1 % 1 - 4 % [facility] Hematocrit (Bld) [Volume fraction] 38.9 % Low 40.7 - 50.3 % [facility] Hemoglobin (Bld) [Mass/Vol] 13.5 g/dL 13.0 - 17.0 g/dL [facility] Immature granulocytes/100 WBC (Bld) 1 % High 0 [facility] Lymphocytes/100 WBC (Bld) 6 % Low 24 - 43 % [facility] MCH (RBC) [Entitic mass] 26.8 pg 25.2 - 33.5 pg [facility] MCHC (RBC) [Mass/Vol] 34.7 g/dL 28.4 - 34.8 g/dL [facility] MCV (RBC) [Entitic vol] 77.3 fL Low 82.6 - 102.9 fL [facility] Monocytes/100 WBC (Bld) 6 % 3 - 12 % [facility] Platelet distribution width (Bld) [Ratio] 18.6 % High 11.8 - 14.4 % [facility] Platelets (Bld) [#/Vol] See Reflexed IPF Result [facility] RBC (Bld) [#/Vol] 5.03 10*6/uL 4.21 - 5.77 m/uL [facility] RBC (Bld) [#/Vol] ANISOCYTOSIS PRESENT [facility] Comment on above: MICROCYTOSIS PRESENT Segmented neutrophils/100 WBC (Bld) 87 % High 36 - 65 % [facility] WBC (Bld) [#/Vol] 16.4 10*3/uL High [facility] Magnesiumon 01-05-2022 Magnesium [Mass/Vol] 1.4 mg/dL Low 1.6-2.6 [facility] Comment on above: Performed By: #### C DP, MELVIN, BMPX, IPF #### [employer] [address] [place], [place] [id number] Orthopedic Specialist: Francisco J Fonseca MD Magnesium [Mass/Vol] 1.5 mg/dL Low 1.6-2.6 [facility] Comment on above: Performed By: #### C DP, MELVIN, BMPX, IPF #### [facility] [address] [place], [place] [phone] Orthopedic Specialist: Francisco J Fonseca MD No Panel Informationon 01-05 1. No evidence for contrast leakage from the stomach or duodenum following repair of perforated ulcer. 2. Gastroesophageal reflux. [facility] RIS CONSOLIDATED EXAMINATION: SINGLE CONTRAST UPPER GI SERIES 01/05/2022 HISTORY: ORDERING SYSTEM PROVIDED HISTORY: repair perf ulcer TECHNOLOGIST PROVIDED HISTORY: repair perf ulcer COMPARISON: None. TECHNIQUE: Multiple single contrast images of the esophagus, gastroesophageal junction and stomach were obtained following the oral administration of water soluble contrast. FLUOROSCOPY DOSE AND TYPE OR TIME AND EXPOSURES: DAP [id number] FINDINGS: Contrast was administered through the indwelling NG tube. No extravasation of contrast from the stomach. There is normal filling of stomach and proximal small bowel loops. There was some reflux into the biliary tree. Gastroesophageal reflux is noted. [facility] Howard Aldridge MD - 01/05/2022 EXAMINATION: SINGLE CONTRAST UPPER GI SERIES 01/05/2022 HISTORY: ORDERING SYSTEM PROVIDED HISTORY: repair perf ulcer TECHNOLOGIST PROVIDED HISTORY: repair perf ulcer COMPARISON: None. TECHNIQUE: Multiple single contrast images of the esophagus, gastroesophageal junction and stomach were obtained following the oral administration of water soluble contrast. FLUOROSCOPY DOSE AND TYPE OR TIME AND EXPOSURES: DAP [id number] FINDINGS: Contrast was administered through the indwelling [...] Interpretation and review of laboratory results Abnormal [facility] GFR >60 >60 mL/min [facility] GFR Non- >60 >60 mL/min [facility] Interpretation and review of laboratory results Abnormal [facility] Interpretation and review of laboratory results Abnormal [facility] Interpretation and review of laboratory results Abnormal [facility] Platelet, Fluorescence [address] [facility] Platelet, Immature Fraction 10.5 % High 1.1 - 10.3 % [facility] Absolute Eos # 0.11 [facility] Absolute Immature Granulocyte 0.08 [facility] Absolute Lymph # 0.96 Low [facility] Absolute [place] # 0.97 [facility] Interpretation and review of laboratory results Abnormal [facility] NRBC Automated 0.0 0.0 per 100 WBC [facility] Segs Absolute 14.26 High [facility] Interpretation and review of laboratory results Abnormal [facility] GFR >60 >60 mL/min [facility] GFR Non- >60 >60 mL/min [facility] Interpretation and review of laboratory results Abnormal [facility] No Panel InformationOrdered By: Howard Aldridge on 01-05-2022 [facility] Work Phone: PLT, Immature Fract.on 01-05 Platelet, Fluoresc. 250 k/uL Normal 138-453 [facility] Comment on above: Performed By: #### C DP, MELVIN, BMPX, IPF #### [facility] [address] [place] [address] Orthopedic Specialist: Francisco J Fonseca MD PLT, Immature Fract. 10.5 % High 1.1-10.3 [facility] Comment on above: Performed By: #### C DP, MELVIN, BMPX, IPF #### [employer] [address] [place] [address] Orthopedic Specialist: Francisco J Fonseca MD Phosphorus, Inorg.on 022 Phosphorus, Inorg. 2.4 mg/dL Low 2.5-4.5 [facility] Comment on above: Performed By: #### C DP, MELVIN, BMPX, IPF #### [facility] [address] [place] [address] Orthopedic Specialist: Francisco J Fonseca MD Phosphorus, Inorg. 1.9 mg/dL Low 2.5-4.5 [facility] Comment on above: Performed By: #### C DP, MELVIN, BMPX, IPF #### [facility] [address] [place] [address] [phone] Orthopedic Specialist: Francisco J Fonseca MD Basic Metab w/rfx MGon 01-04 Potassium [Moles/Vol] 3.4 mmol/L Low 3.7-5.3 [facility] Comment on above: Performed By: #### C DP, MELVIN, BMPX, IPF #### [address] [address] Orthopedic Specialist: Francisco J Fonseca MD (cont.) Normal [facility] Comment on above: Result Comment: Aver age GFR for 70 or more years old: 75 mL/min/1.73sq m Chronic Kidney Disease: <60 mL/min/1.73sq m Kidney failure: <15 mL/min/1.73sq m eGFR calculated using average adult body mass. Additional eGFR calculator available at: http://www.VisualDNA/multiple_crcl_2011.htm Performed By: #### C DP, MELVIN, BMPX, IPF #### [facility] [address] [place] [address] Orthopedic Specialist: Francisco J Fonseca MD Anion gap [Moles/Vol] 12 mmol/L Normal 9-17 [facility] Comment on above: Performed By: #### C DP, MELVIN, BMPX, IPF #### [facility] [address] [place] [address] Orthopedic Specialist: Francisco J Fonseca MD Calcium [Mass/Vol] 8.1 mg/dL Low 8.6-10.4 [facility] Comment on above: Performed By: #### C DP, MELVIN, BMPX, IPF #### [facility] [address] [place] [address] Orthopedic Specialist: FranciscoJ Fonseca MD Chloride [Moles/Vol] 99 mmol/L Normal 98-107 [facility] Comment on above: Performed By: #### C DP, MELVIN, BMPX, IPF #### [facility] [address] [place] [address] Orthopedic Specialist: Francisco J Fonseca MD CO2 [Moles/Vol] 23 mmol/L Normal 20-31 [facility] Comment on above: Performed By: #### C DP, MELVIN, BMPX, IPF #### [facility] [address] [place] [address] Orthopedic Specialist: Francisco J Fonseca MD Creatinine [Mass/Vol] 0.61 mg/dL Low 0.70-1.20 [facility] Comment on above: Performed By: #### C DP, MELVIN, BMPX, IPF #### [facility] [address] [place] [address] Orthopedic Specialist: Francisco J Fonseca MD GFR, Amer >60 Normal >60 [facility] Comment on above: Performed By: #### C DP, MELVIN, BMPX, IPF #### [facility] [address] [place] [address] Orthopedic Specialist: Francisco J Fonseca MD GFR,non Amer >60 Normal >60 [facility] Comment on above: Performed By: #### C DP, MELVIN, BMPX, IPF #### [facility] [address] [place] [address] Orthopedic Specialist: Francisco J Fonseca MD Glucose [Mass/Vol] 125 mg/dL High 70-99 [facility] Comment on above: Performed By: #### C DP, MELVIN, BMPX, IPF #### [facility] [address] [place] [address] Orthopedic Specialist: Francisco J Fonseca MD Sodium [Moles/Vol] 134 mmol/L Low 135-144 [facility] Comment on above: Performed By: #### C DP, MELVIN, BMPX, IPF #### [facility] [address] [place] [address] Orthopedic Specialist: Francisco J Fonseca MD Urea nitrogen [Mass/Vol] 19 mg/dL Normal 8-23 [facility] Comment on above: Performed By: #### C DP, MELVIN, BMPX, IPF #### [place] [address] Orthopedic Specialist: Francisco J Fonseca MD (cont.) [facility] Comment on above: Result Comment: Aver age GFR for 70 or more years old: 75 mL/min/1.73sq m Chronic Kidney Disease: <60 mL/min/1.73sq m Kidney failure: <15 mL/min/1.73sq m eGFR calculated using average adult body mass. Additional eGFR calculator available at: http://www.VisualDNA/multiple_crcl_2011.htm Performed By: #### C DP, MELVIN, BMPX, IPF #### [facility] [address] [place] [address] Orthopedic Specialist: Francisco J Fonseca MD Anion gap [Moles/Vol] 13 mmol/L Normal 9-17 [facility] Comment on above: Performed By: #### C DP, MELVIN, BMPX, IPF #### [place] [address] Orthopedic Specialist: Francisco J Fonseca MD Calcium [Mass/Vol] 8.4 mg/dL Low 8.6-10.4 [facility] Comment on above: Performed By: #### C DP, MELVIN, BMPX, IPF #### [facility] [address] [place] [address] Orthopedic Specialist: Francisco J Fonseca MD Chloride [Moles/Vol] 101 mmol/L Normal 98-107 [facility] Comment on above: Performed By: #### C DP, MELVIN, BMPX, IPF #### [facility] [address] [place] [address] Orthopedic Specialist: Francisco J Fonseca MD CO2 [Moles/Vol] 23 mmol/L Normal 20-31 [facility] Comment on above: Performed By: #### C DP, MELVIN, BMPX, IPF #### [facility] [address] [place] [address] Orthopedic Specialist: Francisco J Fonseca MD Creatinine [Mass/Vol] 0.73 mg/dL Normal 0.70-1.20 [facility] Comment on above: Performed By: #### C DP, MELVIN, BMPX, IPF #### [facility] [address] [place] [address] Orthopedic Specialist: Francisco J Fonseca MD GFR, Amer >60 Normal >60 [facility] Comment on above: Performed By: #### C DP, MELVIN, BMPX, IPF #### [facility] [address] [place] [address] Orthopedic Specialist: Francisco J Fonseca MD GFR,non Amer >60 Normal >60 [facility] Comment on above: Performed By: #### C DP, MELVIN, BMPX, IPF #### [facility] [address] [place] [address] Orthopedic Specialist: Francisco J Fonseca MD Glucose [Mass/Vol] 124 mg/dL High 70-99 [facility] Comment on above: Performed By: #### C DP, MELVIN, BMPX, IPF #### [facility] [address] [place] [address] Orthopedic Specialist: Francisco J Fonseca MD Potassium [Moles/Vol] 3.9 mmol/L Normal 3.7-5.3 [facility] Comment on above: Performed By: #### C DP, MELVIN, BMPX, IPF #### [facility] [address] [place] [address] Orthopedic Specialist: Francisco J Fonseca MD Sodium [Moles/Vol] 137 mmol/L Normal 135-144 [facility] Comment on above: Performed By: #### C DP, MELVIN, BMPX, IPF #### [facility] [address] [place] [address] Orthopedic Specialist: Francisco J Fonseca MD Urea nitrogen [Mass/Vol] 24 mg/dL High 8-23 [facility] Comment on above: Performed By: #### C DP, MELVIN, BMPX, IPF #### [facility] [address] [place] [address] Orthopedic Specialist: Francisco J Fonseca MD (cont.) Normal [facility] Comment on above: Result Comment: Aver age GFR for 70 or more years old: 75 mL/min/1.73sq m Chronic Kidney Disease: <60 mL/min/1.73sq m Kidney failure: <15 mL/min/1.73sq m eGFR calculated using average adult body mass. Additional eGFR calculator available at: http://www.VisualDNA/multiple_crcl_2011.htm Performed By: #### B MPX, MELVIN #### [facility] [address] [place] [address] Orthopedic Specialist: Francisco J Fonseca MD Anion gap [Moles/Vol] 12 mmol/L Normal 9-17 [facility] Comment on above: Performed By: #### B MPX, MELVIN #### [facility] [address] [place] [address] Orthopedic Specialist: Francisco J Fonseca MD Calcium [Mass/Vol] 8.5 mg/dL Low 8.6-10.4 [facility] Comment on above: Performed By: #### B MPX, MELVIN #### [facility] [address] [place] [address] Orthopedic Specialist: Francisco J Fonseca MD Chloride [Moles/Vol] 101 mmol/L Normal 98-107 [facility] Comment on above: Performed By: #### B MPX, MELVIN #### [facility] [address] [place] [address] Orthopedic Specialist: Francisco J Fonseca MD CO2 [Moles/Vol] 23 mmol/L Normal 20-31 [facility] Comment on above: Performed By: #### B MPX, MELVIN #### [facility] [address] [place] [address] Orthopedic Specialist: Francisco J Fonseca MD Creatinine [Mass/Vol] 0.82 mg/dL Normal 0.70-1.20 [facility] Comment on above: Performed By: #### B MPX, MELVIN #### [facility] [address] [place] [address] Orthopedic Specialist: Francisco J Fonseca MD GFR, Amer >60 Normal >60 [facility] Comment on above: Performed By: #### B MPX, MELVIN #### [facility] [address] [place] [address] Orthopedic Specialist: Francisco J Fonseca MD GFR,non Amer >60 Normal >60 [facility] Comment on above: Performed By: #### B MPX, MELVIN #### [facility] [address] [place] [address] Orthopedic Specialist: Francisco J Fonseca MD Glucose [Mass/Vol] 100 mg/dL High 70-99 [facility] Comment on above: Performed By: #### B MPX, MELVIN #### [facility] [address] [place] [address] Orthopedic Specialist: Francisco J Fonseca MD Potassium [Moles/Vol] 3.9 mmol/L Normal 3.7-5.3 [facility] Comment on above: Performed By: #### B MPX, MELVIN #### [facility] [address] [place] [address] Orthopedic Specialist: Francisco J Fonseca MD Sodium [Moles/Vol] 136 mmol/L Normal 135-144 [facility] Comment on above: Performed By: #### B MPX, MELVIN #### [facility] [address] [place] [address] Orthopedic Specialist: Francisco J Fonseca MD Urea nitrogen [Mass/Vol] 26 mg/dL High 8-23 [facility] Comment on above: Performed By: #### B MPX, MELVIN #### [address] [address] Orthopedic Specialist: Francisco J Fonseca MD (cont.) Normal [facility] Comment on above: Result Comment: Aver age GFR for 70 or more years old: 75 mL/min/1.73sq m Chronic Kidney Disease: <60 mL/min/1.73sq m Kidney failure: <15 mL/min/1.73sq m eGFR calculated using average adult body mass. Additional eGFR calculator available at: http://www.VisualDNA/multiple_crcl_2011.htm Performed By: #### C DP #### [place] [address] Orthopedic Specialist: Francisco J Fonseca MD Anion gap [Moles/Vol] 11 mmol/L Normal 9-17 [facility] Comment on above: Performed By: #### C DP #### [place] [address] Orthopedic Specialist: Francisco J Fonseca MD Calcium [Mass/Vol] 8.3 mg/dL Low 8.6-10.4 [facility] Comment on above: Performed By: #### C DP #### [address] [address] Orthopedic Specialist: Francisco J Fonseca MD Chloride [Moles/Vol] 104 mmol/L Normal 98-107 [facility] Comment on above: Performed By: #### C DP #### [address] [address] Orthopedic Specialist: Francisco J Fonseca MD CO2 [Moles/Vol] 21 mmol/L Normal 20-31 [facility] Comment on above: Performed By: #### C DP #### [address] [address] Orthopedic Specialist: Francisco J Fonseca MD Creatinine [Mass/Vol] 0.83 mg/dL Normal 0.70-1.20 [facility] Comment on above: Performed By: #### C DP #### [address] [address] Orthopedic Specialist: Francisco J Fonseca MD GFR, Amer >60 Normal >60 [facility] Comment on above: Performed By: #### C DP #### [address] [address] Orthopedic Specialist: Francisco J Fonseca MD GFR,non Amer >60 Normal >60 [facility] Comment on above: Performed By: #### C DP #### [address] [address] Orthopedic Specialist: Francisco J Fonseca MD Glucose [Mass/Vol] 71 mg/dL Normal 70-99 [facility] Comment on above: Performed By: #### C DP #### [address] [address] Orthopedic Specialist: Francisco J Fonseca MD Potassium [Moles/Vol] 4.5 mmol/L Normal 3.7-5.3 [facility] Comment on above: Result Comment: SPEC IMEN SLIGHTLY HEMOLYZED, RESULTS MAY BE ADVERSELY AFFECTED. Performed By: #### C DP #### [address] [address] Orthopedic Specialist: Francisco J Fonseca MD Sodium [Moles/Vol] 136 mmol/L Normal 135-144 [facility] Comment on above: Performed By: #### C DP #### [address] [address] Orthopedic Specialist: Francisco J Fonseca MD Urea nitrogen [Mass/Vol] 29 mg/dL High 8-23 [facility] Comment on above: Performed By: #### C DP #### [address] [address] Orthopedic Specialist: Francisco J Fonseca MD CBC with Diffon 01-04-2022 Abs. Basophil 0.04 k/uL Normal 0.00-0.20 [facility] Comment on above: Performed By: #### C DP #### [address] [address] Orthopedic Specialist: Francisco J Fonseca MD Abs. Eosinophil <0.03 Normal 0.00-0.44 [facility] Comment on above: Performed By: #### C DP #### [address] [address] Orthopedic Specialist: Francisco J Fonseca MD Abs.Imm.Granulocyte 0.20 k/uL Normal 0.00-0.30 [facility] Comment on above: Performed By: #### C DP #### [address] [address] Orthopedic Specialist: Francisco J Fonseca MD Abs.Neutrophil (Seg) 18.94 k/uL High 1.50-8.10 [facility] Comment on above: Performed By: #### C DP #### [address] [address] Orthopedic Specialist: Francisco J Fonseca MD Basophils/100 WBC (Bld) 0 % Normal 0-2 [facility] Comment on above: Performed By: #### C DP #### [address] [address] Orthopedic Specialist: Francisco J Fonseca MD Eosinophils/100 WBC (Bld) 0 % Low 1-4 [facility] Comment on above: Performed By: #### C DP #### [address] [address] Orthopedic Specialist: Francisco J Fonseca MD Erythrocyte distribution width (RBC) [Ratio] 19.0 % High 11.8-14.4 [facility] Comment on above: Performed By: #### C DP #### [address] [address] Orthopedic Specialist: Francisco J Fonseca MD Hematocrit (Bld) [Volume fraction] 35.1 % Low 40.7-50.3 [facility] Comment on above: Performed By: #### C DP #### [place] [address] Orthopedic Specialist: Francisco J Fonseca MD Hemoglobin (Bld) [Mass/Vol] 12.0 g/dL Low 13.0-17.0 [facility] Comment on above: Performed By: #### C DP #### [place] [address] Orthopedic Specialist: Francisco J Fonseca MD Immature granulocytes/100 WBC (Bld) 1 % High 0 [facility] Comment on above: Performed By: #### C DP #### [place] [address] Orthopedic Specialist: Francisco J Fonseca MD Lymphocytes (Bld) [#/Vol] 0.89 10*3/uL Low 1.10-3.70 [facility] Comment on above: Performed By: #### C DP #### [place] [address] Orthopedic Specialist: Francisco J Fonseca MD Lymphocytes/100 WBC (Bld) 4 % Low 24-43 [facility] Comment on above: Performed By: #### C DP #### [place] [address] Orthopedic Specialist: Francisco J Fonseca MD MCH (RBC) [Entitic mass] 27.6 pg Normal 25.2-33.5 [facility] Comment on above: Performed By: #### C DP #### [address] [address] Orthopedic Specialist: Francisco J Fonseca MD MCHC (RBC) [Mass/Vol] 34.2 g/dL Normal 28.4-34.8 [facility] Comment on above: Performed By: #### C DP #### [address] [address] Orthopedic Specialist: Francisco J Fonseca MD MCV (RBC) [Entitic vol] 80.7 fL Low 82.6-102.9 [facility] Comment on above: Performed By: #### C DP #### [address] [address] Orthopedic Specialist: Francisco J Fonseca MD Monocytes (Bld) [#/Vol] 1.33 10*3/uL High 0.10-1.20 [facility] Comment on above: Performed By: #### C DP #### [address] [address] Orthopedic Specialist: Francisco J Fonseca MD Monocytes/100 WBC (Bld) 6 % Normal 3-12 [facility] Comment on above: Performed By: #### C DP #### [address] [address] Orthopedic Specialist: Francisco J Fonseca MD Neutrophil (Seg) 89 % High 36-65 [facility] Comment on above: Performed By: #### C DP #### [address] [address] Orthopedic Specialist: Francisco J Fonseca MD NRBC Automated 0.0 per 100 WBC Normal 0.0 [facility] Comment on above: Performed By: #### C DP #### [address] [address] Orthopedic Specialist: Francisco J Fonseca MD Platelet mean volume (Bld) [Entitic vol] 12.3 fL Normal 8.1-13.5 [facility] Comment on above: Performed By: #### C DP #### [address] [address] Orthopedic Specialist: Francisco J Fonseca MD Platelets (Bld) [#/Vol] 245 10*3/uL Normal 138-453 [facility] Comment on above: Performed By: #### C DP #### [address] [address] Orthopedic Specialist: Francisco J Fonseca MD RBC (Bld) [#/Vol] 4.35 10*6/uL Normal 4.21-5.77 [facility] Comment on above: Performed By: #### C DP #### [address] [address] Orthopedic Specialist: Francisco J Fonseca MD RBC morphology finding Nom (Bld) ANISOCYTOSIS PRESENT Normal [facility] Comment on above: Result Comment: MICR OCYTOSIS PRESENT Performed By: #### C DP #### [address] [address] Orthopedic Specialist: Francisco J Fonseca MD WBC (Bld) [#/Vol] 21.4 10*3/uL High 3.5-11.3 [facility] Comment on above: Performed By: #### C DP #### [address] [address] Orthopedic Specialist: Francisco J Fonseca MD Cult,Urineon 01-04-2022 Cult,Urine Specimen Description .INDWELLING CATH URINE Culture NO GROWTH Report Status FINAL 01/04/2022 Normal [facility] Comment on above: Performed By: #### C DP, MELVIN, BMPX, IPF #### [address] [address] Orthopedic Specialist: Francisco J Fonseca MD Laboratory - Chemistry and C hemistry - challengeon 01-04-2022 Anion gap [Moles/Vol] 15 mmol/L 9 - 17 mmol/L [facility] Calcium [Mass/Vol] 8.2 mg/dL Low 8.6 - 10. 4 mg/dL [facility] Chloride [Moles/Vol] 98 mmol/L 98 - 10 7 mmol/L [facility] CO2 [Moles/Vol] 23 mmol/L 20 - 31 mmol/L [facility] Creatinine [Mass/Vol] 0.66 mg/dL Low 0.70 - 1.20 mg/dL [facility] GFR/1.73 sq M.predicted MDRD (S/P/Bld) [Vol rate/Area] [facility] Comment on above: Average GFR for 70 o r more years old: 75 mL/min/1.73sq m Chronic Kidney Disease: <60 mL/min/1.73sq m Kidney failure: <15 mL/min/1.73sq m eGFR calculated using average adult body mass. Additional eGFR calculator available at: http://www.VisualDNA/multiple_crcl_2012.htm Glucose [Mass/Vol] 90 mg/dL 70 - 99 mg/dL [facility] Phosphate [Mass/Vol] 1.9 mg/dL Low 2.5 - 4 .5 mg/dL [facility] Potassium [Moles/Vol] 3.7 mmol/L 3.7 - 5.3 mmol/L [facility] Sodium [Moles/Vol] 136 mmol/L 135 - 144 mmol/L [facility] Urea nitrogen (BldV) [Mass/Vol] 20 mg/dL 8 - 23 mg/dL [facility] Magnesium [Mass/Vol] 1.5 mg/dL Low 1.6 - 2 .6 mg/dL [facility] Anion gap [Moles/Vol] 12 mmol/L 9 - 17 mmol/L [facility] Calcium [Mass/Vol] 8.1 mg/dL Low 8.6 - 10. 4 mg/dL [facility] Chloride [Moles/Vol] 99 mmol/L 98 - 10 7 mmol/L [facility] CO2 [Moles/Vol] 23 mmol/L 20 - 31 mmol/L [facility] Creatinine [Mass/Vol] 0.61 mg/dL Low 0.70 - 1.20 mg/dL [facility] GFR/1.73 sq M.predicted MDRD (S/P/Bld) [Vol rate/Area] [facility] Comment on above: Average GFR for 70 o r more years old: 75 mL/min/1.73sq m Chronic Kidney Disease: <60 mL/min/1.73sq m Kidney failure: <15 mL/min/1.73sq m eGFR calculated using average adult body mass. Additional eGFR calculator available at: http://www.VisualDNA/multiple_crcl_2011.htm Glucose [Mass/Vol] 125 mg/dL High 70 - 99 mg/dL [facility] Potassium [Moles/Vol] 3.4 mmol/L Low 3.7 - 5.3 mmol/L [facility] Sodium [Moles/Vol] 134 mmol/L Low 135 - 144 mmol/L [facility] Urea nitrogen (BldV) [Mass/Vol] 19 mg/dL 8 - 23 mg/dL [facility] Phosphate [Mass/Vol] 2.2 mg/dL Low 2.5 - 4 .5 mg/dL [facility] Anion gap [Moles/Vol] 13 mmol/L 9 - 17 mmol/L [facility] Calcium [Mass/Vol] 8.4 mg/dL Low 8.6 - 10. 4 mg/dL [facility] Chloride [Moles/Vol] 101 mmol/L 98 - 10 7 mmol/L [facility] CO2 [Moles/Vol] 23 mmol/L 20 - 31 mmol/L [facility] Creatinine [Mass/Vol] 0.73 mg/dL 0.70 - 1.20 mg/dL [facility] GFR/1.73 sq M.predicted MDRD (S/P/Bld) [Vol rate/Area] [facility] Comment on above: Average GFR for 70 o r more years old: 75 mL/min/1.73sq m Chronic Kidney Disease: <60 mL/min/1.73sq m Kidney failure: <15 mL/min/1.73sq m eGFR calculated using average adult body mass. Additional eGFR calculator available at: http://www.VisualDNA/multiple_crcl_2012.htm Glucose [Mass/Vol] 124 mg/dL High 70 - 99 mg/dL [facility] [...] body mass. Additional eGFR calculator available at: http://www.VisualDNA/multiple_crcl_2012.htm Glucose [Mass/Vol] 100 mg/dL High 70 - 99 mg/dL [facility] Phosphate [Mass/Vol] 2.7 mg/dL 2.5 - [...] body mass. Additional eGFR calculator available at: http://www.Krillion.Cable[employer]/multiple_crcl_2011.htm Glucose [Mass/Vol] 71 mg/dL 70 - 99 [...] HOSPITAL WBC (Bld) [#/Vol] 21.4 10*3/uL High [facility] Laboratory - Microbiology an d Antimicrobial susceptibilityon 01-04-2022 Bacteria identified Cx Nom (U) NO GROWTH [facility] Magnesiumon 01-04-2022 Magnesium [Mass/Vol] 1.5 mg/dL Low 1.6-2.6 [facility] Comment on above: Performed By: #### C DP, MELVIN, BMPX, IPF #### [facility] [address] [id number] Orthopedic Specialist: Francisco J Fonseca MD No Panel Informationon [...] Low [facility] Absolute [place] # 1.33 High [facility] Interpretation and review of laboratory results Abnormal [facility] NRBC Automated 0.0 0.0 per 100 WBC [facility] Segs Absolute 18.94 High [facility] Specimen Description .INDWELLING CATH URINE [facility] Phosphorus, Inorg.on 022 Phosphorus, Inorg. 2.2 mg/dL Low 2.5-4.5 [facility] Comment on above: Performed By: #### C DP, MELVIN, BMPX, IPF #### [facility] [address] [place] [address] Orthopedic Specialist: Francisco J Fonseca MD Phosphorus, Inorg. 2.5 mg/dL Normal 2.5-4.5 [facility] Comment on above: Performed By: #### C DP, MELVIN, BMPX, IPF #### [facility] [place] [address] Orthopedic Specialist: Francisco J Fonseca MD Phosphorus, Inorg. 2.7 mg/dL Normal 2.5-4.5 [facility] Comment on above: Performed By: #### B MPX, MELVIN #### [facility] [address] [place] [address] Orthopedic Specialist: Francisco J Fonseca MD Phosphorus, Inorg. 3.2 mg/dL Normal 2.5-4.5 [facility] Comment on above: Performed By: #### C DP #### [facility] [address] [place] [address] Orthopedic Specialist: Francisco J Fonseca MD Basic Metab w/rfx MGon 01-03 (cont.) Normal [facility] Comment on above: Result Comment: Aver age GFR for 70 or more years old: 75 mL/min/1.73sq m Chronic Kidney Disease: <60 mL/min/1.73sq m Kidney failure: <15 mL/min/1.73sq m eGFR calculated using average adult body mass. Additional eGFR calculator available at: http://www.Krillion.com/multiple_crcl_2012.htm Performed By: #### C DP, MELVIN, BMPX, IPF #### [facility] [address] [place] [address] Orthopedic Specialist: Francisco J Fonseca MD Anion gap [Moles/Vol] 12 mmol/L Normal 9-17 [facility] Comment on above: Performed By: #### C DP, MELVIN, BMPX, IPF #### [facility] [address] [place] [address] Orthopedic Specialist: Francisco J Fonseca MD Calcium [Mass/Vol] 8.3 mg/dL Low 8.6-10.4 [facility] Comment on above: Performed By: #### C DP, MELVIN, BMPX, IPF #### [facility] [address] [place] [address] Orthopedic Specialist: Francisco J Fonseca MD Chloride [Moles/Vol] 102 mmol/L Normal 98-107 [facility] Comment on above: Performed By: #### C DP, MELVIN, BMPX, IPF #### [facility] [address] [place] [address] Orthopedic Specialist: Francisco J Fonseca MD CO2 [Moles/Vol] 21 mmol/L Normal 20-31 [facility] Comment on above: Performed By: #### C DP, MELVIN, BMPX, IPF #### [facility] [address] [place] [address] Orthopedic Specialist: Francisco J Fonseca MD Creatinine [Mass/Vol] 0.88 mg/dL Normal 0.70-1.20 [facility] Comment on above: Performed By: #### C DP, MELVIN, BMPX, IPF #### [facility] [address] [place] [address] Orthopedic Specialist: Francisco J Fonseca MD GFR, Amer >60 Normal >60 [facility] Comment on above: Performed By: #### C DP, MELVIN, BMPX, IPF #### [address] [address] Orthopedic Specialist: Francisco J Fonseca MD GFR,non Amer >60 Normal >60 [facility] Comment on above: Performed By: #### C DP, MELVIN, BMPX, IPF #### [address] [address] Orthopedic Specialist: Francisco J Fonseca MD Glucose [Mass/Vol] 74 mg/dL Normal 70-99 [facility] Comment on above: Performed By: #### C DP, MELVIN, BMPX, IPF #### [address] [address] Orthopedic Specialist: Francisco J Fonseca MD Potassium [Moles/Vol] 4.2 mmol/L Normal 3.7-5.3 [facility] Comment on above: Performed By: #### C DP, MELVIN, BMPX, IPF #### [address] [address] Orthopedic Specialist: Francisco J Fonseca MD Sodium [Moles/Vol] 135 mmol/L Normal 135-144 [facility] Comment on above: Performed By: #### C DP, MELVIN, BMPX, IPF #### [address] [address] Orthopedic Specialist: Francisco J Fonseca MD Urea nitrogen [Mass/Vol] 29 mg/dL High 8-23 [facility] Comment on above: Performed By: #### C DP, MELVIN, BMPX, IPF #### [address] [address] Orthopedic Specialist: Francisco J Fonseca MD (cont.) [facility] Comment on above: Result Comment: Aver age GFR for 70 or more years old: 75 mL/min/1.73sq m Chronic Kidney Disease: <60 mL/min/1.73sq m Kidney failure: <15 mL/min/1.73sq m eGFR calculated using average adult body mass. Additional eGFR calculator available at: http://www.Krillion.CableMatrix Technologies/multiple_crcl_2011.htm Performed By: #### C DP #### [address] [address] Orthopedic Specialist: Francisco J Fonseca MD Anion gap [Moles/Vol] 12 mmol/L Normal 9-17 [facility] Comment on above: Performed By: #### C DP #### [address] [address] Orthopedic Specialist: Francisco J Fonseca MD Calcium [Mass/Vol] 8.4 mg/dL Low 8.6-10.4 [facility] Comment on above: Performed By: #### C DP #### [address] [address] Orthopedic Specialist: Francisco J Fonseca MD Chloride [Moles/Vol] 103 mmol/L Normal 98-107 [facility] Comment on above: Performed By: #### C DP #### [address] [address] Orthopedic Specialist: Francisco J Fonseca MD CO2 [Moles/Vol] 21 mmol/L Normal 20-31 [facility] Comment on above: Performed By: #### C DP #### [address] [address] Orthopedic Specialist: Francisco J Fonseca MD Creatinine [Mass/Vol] 0.93 mg/dL Normal 0.70-1.20 [facility] Comment on above: Performed By: #### C DP #### [address] [address] Orthopedic Specialist: Francisco J Fonseca MD GFR, Amer >60 Normal >60 [facility] Comment on above: Performed By: #### C DP #### [address] [place] [address] Orthopedic Specialist: Francisco J Fonseca MD GFR,non Amer >60 Normal >60 [facility] Comment on above: Performed By: #### C DP #### [address] [address] Orthopedic Specialist: Francisco J Fonseca MD Glucose [Mass/Vol] 155 mg/dL High 70-99 [facility] Comment on above: Performed By: #### C DP #### [address] [address] Orthopedic Specialist: Francisco J Fonseca MD Potassium [Moles/Vol] 3.9 mmol/L Normal 3.7-5.3 [facility] Comment on above: Performed By: #### C DP #### [address] [address] Orthopedic Specialist: Francisco J Fonseca MD Sodium [Moles/Vol] 136 mmol/L Normal 135-144 [facility] Comment on above: Performed By: #### C DP #### [address] [address] Orthopedic Specialist: Francisco J Fonseca MD Urea nitrogen [Mass/Vol] 28 mg/dL High 8-23 [facility] Comment on above: Performed By: #### C DP #### [address] [address] Orthopedic Specialist: Francisco J Fonseca MD (cont.) Normal [facility] Comment on above: Result Comment: Aver age GFR for 70 or more years old: 75 mL/min/1.73sq m Chronic Kidney Disease: <60 mL/min/1.73sq m Kidney failure: <15 mL/min/1.73sq m eGFR calculated using average adult body mass. Additional eGFR calculator available at: http://www.Krillion.[employer]able[employer]/multiple_crcl_2011.htm Performed By: #### C DP, MELVIN, BMPX, IPF #### [facility] [address] [place] [address] Orthopedic Specialist: Francisco J Fonseca MD Anion gap [Moles/Vol] 11 mmol/L Normal 9-17 [facility] Comment on above: Performed By: #### C DP, MELVIN, BMPX, IPF #### [facility] [address] [place] [address] Orthopedic Specialist: Franicsco J Fonseca MD Calcium [Mass/Vol] 8.4 mg/dL Low 8.6-10.4 [facility] Comment on above: Performed By: #### C DP, MELVIN, BMPX, IPF #### [address] [address] Orthopedic Specialist: Francisco J Fonseca MD Chloride [Moles/Vol] 103 mmol/L Normal 98-107 [facility] Comment on above: Performed By: #### C DP, MELVIN, BMPX, IPF #### [address] [address] Orthopedic Specialist: Francisco J Fonseca MD CO2 [Moles/Vol] 24 mmol/L Normal 20-31 [facility] Comment on above: Performed By: #### C DP, MELVIN, BMPX, IPF #### [facility] [address] [place] [address] Orthopedic Specialist: Francisco J Fonseca MD Creatinine [Mass/Vol] 0.92 mg/dL Normal 0.70-1.20 [facility] Comment on above: Performed By: #### C DP, MELVIN, BMPX, IPF #### [facility] [address] [place] [address] Orthopedic Specialist: Francisco J Fonseca MD GFR, Amer >60 Normal >60 [facility] Comment on above: Performed By: #### C DP, MELVIN, BMPX, IPF #### [facility] [address] [place] [address], [place] [address] Orthopedic Specialist: Francisco J Fonseca MD GFR,non Amer >60 Normal >60 [facility] Comment on above: Performed By: #### C DP, MELVIN, BMPX, IPF #### [address] [address] Orthopedic Specialist: Francisco J Fonseca MD Glucose [Mass/Vol] 226 mg/dL High 70-99 [facility] Comment on above: Performed By: #### C DP, MELVIN, BMPX, IPF #### [address] [address] Orthopedic Specialist: Francisc oJ Fonseca MD Potassium [Moles/Vol] 5.0 mmol/L Normal 3.7-5.3 [facility] Comment on above: Performed By: #### C DP, MELVIN, BMPX, IPF #### [address] [address] Orthopedic Specialist: Francisco J Fonseca MD Sodium [Moles/Vol] 138 mmol/L Normal 135-144 [facility] Comment on above: Performed By: #### C DP, MELVIN, BMPX, IPF #### [facility] [address] [place] [address] Orthopedic Specialist: Francisco J Fonseca MD Urea nitrogen [Mass/Vol] 26 mg/dL High 8-23 [facility] Comment on above: Performed By: #### C DP, MELVIN, BMPX, IPF #### [address] [address] Orthopedic Specialist: Francisco J Fonseca MD (cont.) [facility] Comment on above: Result Comment: Aver age GFR for 70 or more years old: 75 mL/min/1.73sq m Chronic Kidney Disease: <60 mL/min/1.73sq m Kidney failure: <15 mL/min/1.73sq m eGFR calculated using average adult body mass. Additional eGFR calculator available at: http://www.Krillion.com/multiple_crcl_2012.htm Performed By: #### C DP, MELVIN, BMPX, IPF #### [address] [address] Orthopedic Specialist: Francisco J Fonseca MD Anion gap [Moles/Vol] 13 mmol/L Normal 9-17 [facility] Comment on above: Performed By: #### C DP, MELVIN, BMPX, IPF #### [facility] [address] [place] [address] Orthopedic Specialist: Francisco J Fonseca MD Calcium [Mass/Vol] 8.4 mg/dL Low 8.6-10.4 [facility] Comment on above: Performed By: #### C DP, MELVIN, BMPX, IPF #### [address] [address] Orthopedic Specialist: Francisco J Fonseca MD Chloride [Moles/Vol] 104 mmol/L Normal 98-107 [facility] Comment on above: Performed By: #### C DP, MELVIN, BMPX, IPF #### [address] [address] Orthopedic Specialist: Francisco J Fonseca MD CO2 [Moles/Vol] 21 mmol/L Normal 20-31 [facility] Comment on above: Performed By: #### C DP, MELVIN, BMPX, IPF #### [facility] [address] [place] [address] Orthopedic Specialist: Francisco J Fonseca MD Creatinine [Mass/Vol] 0.84 mg/dL Normal 0.70-1.20 [facility] Comment on above: Performed By: #### C DP, MELVIN, BMPX, IPF #### [facility] [address] [place] [address] Orthopedic Specialist: Francisco J Fonseca MD GFR, Amer >60 Normal >60 [facility] Comment on above: Performed By: #### C DP, MELVIN, BMPX, IPF #### [address] [address] Orthopedic Specialist: Francisco J Fonseca MD GFR,non Amer >60 Normal >60 [facility] Comment on above: Performed By: #### C DP, MELVIN, BMPX, IPF #### [facility] [address] [place] [address] Orthopedic Specialist: Francisco J Fonseca MD Glucose [Mass/Vol] 176 mg/dL High 70-99 [facility] Comment on above: Performed By: #### C DP, MELVIN, BMPX, IPF #### [facility] [address] [place] [address] Orthopedic Specialist: Francisco J Fonseca MD Potassium [Moles/Vol] 4.5 mmol/L Normal 3.7-5.3 [facility] Comment on above: Performed By: #### C DP, MELVIN, BMPX, IPF #### [address] [address] Orthopedic Specialist: Francisco J Fonseca MD Sodium [Moles/Vol] 138 mmol/L Normal 135-144 [facility] Comment on above: Performed By: #### C DP, MELVIN, BMPX, IPF #### [address] [address] Orthopedic Specialist: Francisco J Fonseca MD Urea nitrogen [Mass/Vol] 21 mg/dL Normal 8-23 [facility] Comment on above: Performed By: #### C DP, MELVIN, BMPX, IPF #### [address] [address] Orthopedic Specialist: Francisco J Fonseca MD (cont.) [facility] Comment on above: Result Comment: Aver age GFR for 70 or more years old: 75 mL/min/1.73sq m Chronic Kidney Disease: <60 mL/min/1.73sq m Kidney failure: <15 mL/min/1.73sq m eGFR calculated using average adult body mass. Additional eGFR calculator available at: http://www.Krillion.[employer]/multiple_crcl_2012.htm Performed By: #### C DP, MELVIN, BMPX, IPF #### [facility] [address] [place] [address] Orthopedic Specialist: Francisco J Fonseca MD Anion gap [Moles/Vol] 6 mmol/L Low 9-17 [facility] Comment on above: Performed By: #### C DP, MELVIN, BMPX, IPF #### [facility] [address] [place], [place] [id number] Orthopedic Specialist: Francisco J Fonseca MD Calcium [Mass/Vol] 8.5 mg/dL Low 8.6-10.4 [facility] Comment on above: Performed By: #### C DP, MELVIN, BMPX, IPF #### [facility] [address] [place] [address] Orthopedic Specialist: Francisco J Fonseca MD Chloride [Moles/Vol] 105 mmol/L Normal 98-107 [facility] Comment on above: Performed By: #### C DP, MELVIN, BMPX, IPF #### [facility] [address] [place] [address] Orthopedic Specialist: Francisco J Fonseca MD CO2 [Moles/Vol] 25 mmol/L Normal 20-31 [facility] Comment on above: Performed By: #### C DP, MELVIN, BMPX, IPF #### [facility] [address] [place] [address] Orthopedic Specialist: Francisco J Fonseca MD Creatinine [Mass/Vol] 0.75 mg/dL Normal 0.70-1.20 [facility] Comment on above: Performed By: #### C DP, MELVIN, BMPX, IPF #### [facility] [address] [place] [address] Orthopedic Specialist: FranciscoJ Fonseca MD GFR, Amer >60 Normal >60 [facility] Comment on above: Performed By: #### C DP, MELVIN, BMPX, IPF #### [facility] [address] [place] [address] Orthopedic Specialist: Francisco J Fonseca MD GFR,non Amer >60 Normal >60 [facility] Comment on above: Performed By: #### C DP, MELVIN, BMPX, IPF #### [facility] [address] [place] [address] Orthopedic Specialist: Francisco J Fonseca MD Glucose [Mass/Vol] 81 mg/dL Normal 70-99 [facility] Comment on above: Performed By: #### C DP, MELVIN, BMPX, IPF #### [address] [address] Orthopedic Specialist: Francisco J Fonseca MD Potassium [Moles/Vol] 4.6 mmol/L Normal 3.7-5.3 [facility] Comment on above: Performed By: #### C DP, MELVIN, BMPX, IPF #### [facility] [address] [place] [address] Orthopedic Specialist: Francisco J Fonseca MD Sodium [Moles/Vol] 136 mmol/L Normal 135-144 [facility] Comment on above: Performed By: #### C DP, MELVIN, BMPX, IPF #### [facility] [address] [place] [address] Orthopedic Specialist: Francisco J Fonseca MD Urea nitrogen [Mass/Vol] 18 mg/dL Normal 8-23 [facility] Comment on above: Performed By: #### C DP, MELVIN, BMPX, IPF #### [facility] [address] [place] [address] Orthopedic Specialist: Francisco J Fonseca MD CBC with Diffon 01-03-2022 Abs. Basophil 0.00 k/uL Normal 0.0-0.2 [facility] Comment on above: Performed By: #### C DP #### [address] [address] Orthopedic Specialist: Francisco J Fonseca MD Abs.Imm.Granulocyte 0.00 k/uL Normal 0.00-0.30 [facility] Comment on above: Performed By: #### C DP #### [place] [address] Orthopedic Specialist: Francisco J Fonseca MD Abs.Neutrophil (Seg) 19.89 k/uL High 1.8-7.7 [facility] Comment on above: Performed By: #### C DP #### [place] [address] Orthopedic Specialist: Francisco J Fonseca MD Basophils/100 WBC (Bld) 0 % Normal 0-2 [facility] Comment on above: Performed By: #### C DP #### [place] [address] Orthopedic Specialist: Francisco J Fonseca MD Eosinophils (Bld) [#/Vol] 0.00 10*3/uL Normal 0.0-0.4 [facility] Comment on above: Performed By: #### C DP #### [place] [address] Orthopedic Specialist: Francisco J Fonseca MD Eosinophils/100 WBC (Bld) 0 % Low 1-4 [facility] Comment on above: Performed By: #### C DP #### [place] [address] Orthopedic Specialist: Francisco J Fonseca MD Immature granulocytes/100 WBC (Bld) 0 % Normal 0 [facility] Comment on above: Performed By: #### C DP #### [address] [address] Orthopedic Specialist: Francisco J Fonseca MD Lymphocytes (Bld) [#/Vol] 0.88 10*3/uL Low 1.0-4.8 [facility] Comment on above: Performed By: #### C DP #### [address] [address] Orthopedic Specialist: Francisco J Fonseca MD Lymphocytes/100 WBC (Bld) 4 % Low 24-44 [facility] Comment on above: Performed By: #### C DP #### [address] [address] Orthopedic Specialist: Francisco J Fonseca MD Monocytes (Bld) [#/Vol] 1.33 10*3/uL High 0.1-0.8 [facility] Comment on above: Performed By: #### C DP #### [address] [address] Orthopedic Specialist: Francisco J Fonseca MD Monocytes/100 WBC (Bld) 6 % Normal 1-7 [facility] Comment on above: Performed By: #### C DP #### [address] [address] Orthopedic Specialist: Francisco J Fonseca MD Morphology Walter (Bld) [Interp] MICROCYTOSIS PRESENT Normal [facility] Comment on above: Result Comment: ANIS OCYTOSIS PRESENT 1+ ACANTHOCYTES Performed By: #### C DP #### [address] [address] Orthopedic Specialist: Francisco J Fonseca MD Neutrophil (Seg) 90 % High 36-66 [facility] Comment on above: Performed By: #### C DP #### [address] [address] Orthopedic Specialist: Francisco J Fonseca MD Erythrocyte distribution width (RBC) [Ratio] 18.9 % High 11.8-14.4 [facility] Comment on above: Performed By: #### C DP #### [address] [address] Orthopedic Specialist: Francisco J Fonseca MD Hematocrit (Bld) [Volume fraction] 37.4 % Low 40.7-50.3 [facility] Comment on above: Performed By: #### C DP #### [address] [address] Orthopedic Specialist: Francisco J Fonseca MD Hemoglobin (Bld) [Mass/Vol] 12.2 g/dL Low 13.0-17.0 [facility] Comment on above: Performed By: #### C DP #### [address] [address] Orthopedic Specialist: Francisco J Fonseca MD MCH (RBC) [Entitic mass] 26.9 pg Normal 25.2-33.5 [facility] Comment on above: Performed By: #### C DP #### [address] [address] Orthopedic Specialist: Francisco J Fonseca MD MCHC (RBC) [Mass/Vol] 32.6 g/dL Normal 28.4-34.8 [facility] Comment on above: Performed By: #### C DP #### [place] [address] Orthopedic Specialist: Francisco J Fonseca MD MCV (RBC) [Entitic vol] 82.4 fL Low 82.6-102.9 [facility] Comment on above: Performed By: #### C DP #### [address] [address] Orthopedic Specialist: Francisco J Fonseca MD NRBC Automated 0.0 per 100 WBC Normal 0.0 [facility] Comment on above: Performed By: #### C DP #### [address] [place] [address] Orthopedic Specialist: Francisco J Fonseca MD Platelet mean volume (Bld) [Entitic vol] 12.6 fL Normal 8.1-13.5 [facility] Comment on above: Performed By: #### C DP #### [address] [address] Orthopedic Specialist: Francisco J Fonseca MD Platelets (Bld) [#/Vol] 292 10*3/uL Normal 138-453 [facility] Comment on above: Performed By: #### C DP #### [address] [address] Orthopedic Specialist: Francisco J Fonseca MD RBC (Bld) [#/Vol] 4.54 10*6/uL Normal 4.21-5.77 [facility] Comment on above: Performed By: #### C DP #### [address] [address] Orthopedic Specialist: Francisco J Fonseca MD WBC (Bld) [#/Vol] 22.1 10*3/uL High 3.5-11.3 [facility] Comment on above: Performed By: #### C DP #### [address] [address] Orthopedic Specialist: Francisco J Fonseca MD Hemoglobin A1Con 01-03-2022 Glucose [Mass/Vol] 223 mg/dL Normal [facility] Comment on above: Result Comment: The ADA and AACC recommend providing the estimated average glucose result to permit better patient understanding of their HBA1c result. Performed By: #### C DP MELVIN, BMPX, IPF #### [address] [address] Orthopedic Specialist: Francisco J Fonseca MD HbA1c (Bld) [Mass fraction] 9.4 % High 4.0-6.0 [facility] Comment on above: Performed By: #### C DP, MELVIN, BMPX, IPF #### [facility] [address] [place] [address] Orthopedic Specialist: Francisco J Fonseca MD Laboratory - Chemistry and C hemistry - challengeon 01-03-2022 Anion gap [Moles/Vol] 12 mmol/L 9 - 17 mmol/L [facility] [employer] Calcium [Mass/Vol] 8.3 mg/dL Low 8.6 - 10. 4 mg/dL [facility] Chloride [Moles/Vol] 102 mmol/L 98 - 10 7 mmol/L [facility] CO2 [Moles/Vol] 21 mmol/L 20 - 31 mmol/L [facility] Creatinine [Mass/Vol] 0.88 mg/dL 0.70 - 1.20 mg/dL [facility] GFR/1.73 sq M.predicted MDRD (S/P/Bld) [Vol rate/Area] [facility] Comment on above: Average GFR for 70 o r more years old: 75 mL/min/1.73sq m Chronic Kidney Disease: <60 mL/min/1.73sq m Kidney failure: <15 mL/min/1.73sq m eGFR calculated using average adult body mass. Additional eGFR calculator available at: http://www.VisualDNA/multiple_crcl_2011.htm Glucose [Mass/Vol] 74 mg/dL 70 - 99 mg/dL [facility] Phosphate [Mass/Vol] 3.3 mg/dL 2.5 - 4 .5 mg/dL [facility] Potassium [Moles/Vol] 4.2 mmol/L 3.7 - 5.3 mmol/L [facility] [employer] Sodium [Moles/Vol] 135 mmol/L 135 - 144 mmol/L [facility] [employer] Urea nitrogen (BldV) [Mass/Vol] 29 mg/dL High 8 - 23 mg/dL [facility] [employer] [facility] Glucose [Mass/Vol] 69 mg/dL Low 75 - 110 mg/dL [facility] Glucose [Mass/Vol] 93 mg/dL 75 - 110 mg/dL [facility] Glucose [Mass/Vol] 55 mg/dL Low 75 - 110 mg/dL [facility] Comment on above: Critical Noted Glucose [Mass/Vol] 88 mg/dL 75 - 110 mg/dL [facility] [Mass/Vol] 0.93 mg/dL 0.70 - 1.20 mg/dL [facility] GFR/1.73 sq M.predicted MDRD (S/P/Bld) [Vol rate/Area] [facility] Comment on above: Average GFR for 70 o r more years old: 75 mL/min/1.73sq m Chronic Kidney Disease: <60 mL/min/1.73sq m Kidney failure: <15 mL/min/1.73sq m eGFR calculated using average adult body mass. Additional eGFR calculator available at: http://www.VisualDNA/multiple_crcl_2011.htm Glucose [Mass/Vol] 155 mg/dL High 70 - 99 mg/dL [facility] Phosphate [Mass/Vol] 2.9 mg/dL 2.5 - 4 .5 mg/dL [facility] Potassium [Moles/Vol] 3.9 mmol/L 3.7 - 5.3 mmol/L [facility] Sodium [Moles/Vol] 136 mmol/L 135 - 144 mmol/L [facility] Urea nitrogen (BldV) [Mass/Vol] 28 mg/dL High 8 - 23 mg/dL [facility] Glucose [Mass/Vol] 152 mg/dL High 75 - 110 mg/dL [facility] Glucose [Mass/Vol] 216 mg/dL High 75 - 110 mg/dL [facility] Glucose [Mass/Vol] 242 mg/dL High 75 - 110 mg/dL [facility] Glucose [Mass/Vol] 243 mg/dL High 75 - 110 mg/dL [facility] Anion gap [Moles/Vol] 11 mmol/L 9 - 17 mmol/L [facility] Calcium [Mass/Vol] 8.4 mg/dL Low 8.6 - 10. 4 mg/dL [facility] Chloride [Moles/Vol] 103 mmol/L 98 - 10 7 mmol/L [facility] CO2 [Moles/Vol] 24 mmol/L 20 - 31 mmol/L [facility] Creatinine [Mass/Vol] 0.92 mg/dL 0.70 - 1.20 mg/dL [facility] GFR/1.73 sq M.predicted MDRD (S/P/Bld) [Vol rate/Area] [facility] Comment on above: Average GFR for 70 o r more years old: 75 mL/min/1.73sq m Chronic Kidney Disease: <60 mL/min/1.73sq m Kidney failure: <15 mL/min/1.73sq m eGFR calculated using average adult body mass. Additional eGFR calculator available at: http://www.VisualDNA/multiple_crcl_2012.htm Glucose [Mass/Vol] 226 mg/dL High 70 - 99 mg/dL [facility] Phosphate [Mass/Vol] 3.5 mg/dL 2.5 - 4 .5 mg/dL [facility] Potassium [Moles/Vol] 5.0 mmol/L 3.7 - 5.3 mmol/L [facility] Sodium [Moles/Vol] 138 mmol/L 135 - 144 mmol/L [facility] Urea nitrogen (BldV) [Mass/Vol] 26 mg/dL High 8 - 23 mg/dL [facility] Glucose [Mass/Vol] 214 mg/dL High 75 - 110 mg/dL [facility] Anion gap [Moles/Vol] 13 mmol/L 9 - 17 mmol/L [facility] Calcium [Mass/Vol] 8.4 mg/dL Low 8.6 - 10. 4 mg/dL [facility] Chloride [Moles/Vol] 104 mmol/L 98 - 10 7 mmol/L [facility] CO2 [Moles/Vol] 21 mmol/L 20 - 31 mmol/L [facility]ITALVertical KnowledgeSELECT [facility] Creatinine [Mass/Vol] 0.84 mg/dL 0.70 - 1.20 mg/dL [facility] GFR/1.73 sq M.predicted MDRD (S/P/Bld) [Vol rate/Area] [facility] Comment on above: Average GFR for 70 o r more years old: 75 mL/min/1.73sq m Chronic Kidney Disease: <60 mL/min/1.73sq m Kidney failure: <15 mL/min/1.73sq m eGFR calculated using average adult body mass. Additional eGFR calculator available at: http://www.VisualDNA/multiple_crcl_2011.htm Glucose [Mass/Vol] 176 mg/dL High 70 - 99 mg/dL [facility] [employer] Phosphate [Mass/Vol] 3.1 mg/dL 2.5 - 4 .5 mg/dL [facility] [employer] Potassium [Moles/Vol] 4.5 mmol/L 3.7 - 5.3 mmol/L [facility] Sodium [Moles/Vol] 138 mmol/L 135 - 144 mmol/L [facility] Urea nitrogen (BldV) [Mass/Vol] 21 mg/dL 8 - 23 mg/dL [facility] Glucose [Mass/Vol] 126 mg/dL High 75 - 110 mg/dL [facility] Glucose [Mass/Vol] 165 mg/dL High 75 - 110 mg/dL [facility] Glucose [Mass/Vol] 142 mg/dL High 75 - 110 mg/dL [facility] Glucose [Mass/Vol] 89 mg/dL 75 - 110 mg/dL [facility] Glucose [Mass/Vol] 71 mg/dL Low 75 - 110 mg/dL [facility] Glucose [Mass/Vol] 82 mg/dL 75 - 110 mg/dL [facility] Glucose [Mass/Vol] 128 mg/dL High 75 - 110 mg/dL [facility] [employer] Anion gap [Moles/Vol] 6 mmol/L Low 9 - 17 mmol/L [facility] [employer] Calcium [Mass/Vol] 8.5 mg/dL Low 8.6 - [...] body mass. Additional eGFR calculator available at: http://www.VisualDNA/multiple_crcl_2012.htm Glucose [Mass/Vol] 81 mg/dL 70 - 99 [...] Immature granulocytes/100 WBC (Bld) 0 % 0 [facility] Lymphocytes/100 WBC (Bld) 4 % Low 24 - 44 % [facility] MCH (RBC) [Entitic mass] 26.9 pg 25.2 - 33.5 pg [facility] MCHC (RBC) [Mass/Vol] 32.6 g/dL 28.4 - 34.8 g/dL [facility] MCV (RBC) [Entitic vol] 82.4 fL Low 82.6 - 102.9 fL [facility] Monocytes/100 WBC (Bld) 6 % 1 - 7 % [facility] Morphology Walter (Bld) [Interp] MICROCYTOSIS PRESENT [facility] Morphology Walter (Bld) [Interp] ANISOCYTOSIS PRESENT [facility] Morphology Walter (Bld) [Interp] 1+ ACANTHOCYTES [facility] Platelet distribution width (Bld) [Ratio] 18.9 % High 11.8 - 14.4 % [facility] Platelet mean volume (Bld) [Entitic vol] 12.6 fL 8.1 - 13.5 fL [facility] Platelets (Bld) [#/Vol] 292 10*3/uL [facility] RBC (Bld) [#/Vol] 4.54 10*6/uL 4.21 - 5.77 m/uL [facility] Segmented neutrophils/100 WBC (Bld) 90 % High 36 - 66 % [facility] WBC (Bld) [#/Vol] 22.1 10*3/uL High [facility] No Panel Informationon 01-03 GFR >60 >60 mL/min [facility] GFR Non- >60 >60 mL/min [facility] Interpretation and review of laboratory results Abnormal [facility] Interpretation and review of laboratory results Abnormal [facility] Interpretation and review of laboratory results Abnormal [facility] GFR >60 >60 mL/min [facility] GFR Non- >60 >60 mL/min [facility] Low [facility] Absolute [place] # 1.33 High [facility] Interpretation and review of [...] 022 Phosphorus, Inorg. 3.3 mg/dL Normal 2.5-4.5 [facility] Comment on above: Performed By: #### C DP, MELVIN, BMPX, IPF #### [facility] [address] [place] [address] Orthopedic Specialist: Francisco J Fonseca MD Phosphorus, Inorg. 2.9 mg/dL Normal 2.5-4.5 [facility] Comment on above: Performed By: #### C DP #### [facility] [address] [place] [address] Orthopedic Specialist: Francisco J Fonseca MD Phosphorus, Inorg. 3.5 mg/dL Normal 2.5-4.5 [facility] Comment on above: Performed By: #### C DP, MELVIN, BMPX, IPF #### [facility] [address] [place] [address] Orthopedic Specialist: Francisco J Fonseca MD Phosphorus, Inorg. 3.1 mg/dL Normal 2.5-4.5 [facility] Comment on above: Performed By: #### C DP, MELVIN, BMPX, IPF #### [facility] [address] [place] [address] Orthopedic Specialist: Francisco J Fonseca MD Phosphorus, Inorg. 2.5 mg/dL Normal 2.5-4.5 [facility] Comment on above: Performed By: #### C DP, MELVIN, BMPX, IPF #### [facility] [address] [place] [address] Orthopedic Specialist: Francisco J Fonseca MD XR ABDOMEN FOR [...] Eulogio Winslow MD 01/02/22 Final result Normal [facility] AMYLASEon 01-02-2022 Amylase [Catalytic activity/Vol] 13 U/L Critically low 25-[address] [facility] Comment on above: Performed By: #### L IPA, MARGA, LIVER, BMP #### [facility] [address] [place], [place] [address] Dr. Kylee Bunch Basic Metabolic Profon 01-02 Glucose [Mass/Vol] 452 mg/dL Critically high 70-99 [facility] Comment on above: Performed By: #### C DP #### [address] [address] Orthopedic Specialist: Francisco J Fonseca MD (cont.) Normal [facility] Comment on above: Result Comment: Aver age GFR for 70 or more years old: 75 mL/min/1.73sq m Chronic Kidney Disease: <60 mL/min/1.73sq m Kidney failure: <15 mL/min/1.73sq m eGFR calculated using average adult body mass. Additional eGFR calculator available at: http://www.VisualDNA/multiple_crcl_2012.htm Performed By: #### C DP #### [address] [address] Orthopedic Specialist: Francisco J Fonseca MD Anion gap [Moles/Vol] 12 mmol/L Normal 9-17 [facility] Comment on above: Performed By: #### C DP #### [address] [address] Orthopedic Specialist: Francisco J Fonseca MD Calcium [Mass/Vol] 8.6 mg/dL Normal 8.6-10.4 [facility] Comment on above: Performed By: #### C DP #### [address] [address] Orthopedic Specialist: Francisco J Fonseca MD Chloride [Moles/Vol] 96 mmol/L Low 98-107 [facility] Comment on above: Performed By: #### C DP #### [address] [address] Orthopedic Specialist: Francisco J Fonseca MD CO2 [Moles/Vol] 22 mmol/L Normal 20-31 [facility] Comment on above: Performed By: #### C DP #### [address] [address] Orthopedic Specialist: Francisco J Fonseca MD Creatinine [Mass/Vol] 0.81 mg/dL Normal 0.70-1.20 [facility] Comment on above: Performed By: #### C DP #### [address] [address] Orthopedic Specialist: Francisco J Fonseca MD GFR, Amer >60 Normal >60 [facility] Comment on above: Performed By: #### C DP #### [address] [address] Orthopedic Specialist: Francisco J Fonseca MD GFR,non Amer >60 Normal >60 [facility] Comment on above: Performed By: #### C DP #### [address] [address] Orthopedic Specialist: Francisco J Fonseca MD Potassium [Moles/Vol] 4.1 mmol/L Normal 3.7-5.3 [facility] Comment on above: Performed By: #### C DP #### [address] [address] Orthopedic Specialist: Francisco J Fonseca MD Sodium [Moles/Vol] 130 mmol/L Low 135-144 [facility] Comment on above: Performed By: #### C DP #### [address] [address] Orthopedic Specialist: Francisco J Fonseca MD Urea nitrogen [Mass/Vol] 19 mg/dL Normal 8-23 [facility] Comment on above: Performed By: #### C DP #### [facility] [address] [place], [place] [id number] Orthopedic Specialist: Francisco J Fonseca MD CBC AUTO DIFFon 01-02-2022 BASO # 0.0 103/ul Normal 0.0-0.[address] [facility] Comment on above: Performed By: #### C MP, LIPID #### [facility] [address] [place] [address] Dr. Kylee Bunch Basophils/100 WBC (Bld) 0.2 % Normal 0.2-2.[address] [facility] Comment on above: Performed By: #### C MP, LIPID #### [facility] [address] [place] [address] Dr. Kylee Bunch EO # 0.1 103/ul Normal 0.0-0.[address] [facility] Comment on above: Performed By: #### C MP, LIPID #### [facility] [address] [place] [address] [address] Kylee Bunch Eosinophils/100 WBC (Bld) 0.5 % Critically low 0.9-7.[address] [facility] Comment on above: Performed By: #### C MP, LIPID #### [facility] [address] [place] [address] [address] Kylee Bunch Erythrocyte distribution width (RBC) [Ratio] 18.5 % Critically high 11.0-15.[address] [facility] Comment on above: Performed By: #### C MP, LIPID #### [facility] [address] [place] [address] [address] Kylee Bunch Hematocrit (Bld) [Volume fraction] 37.0 % Critically low 42.0-54.[address] [facility] Comment on above: Performed By: #### C MP, LIPID #### [facility] [address] [place] [address] [address] Kylee Bunch Hemoglobin (Bld) [Mass/Vol] 12.6 g/dL Critically low 14.0-18.[address] [facility] Comment on above: Performed By: #### C MP, LIPID #### [facility] [address] [place] [address] Dr. Kylee Bunch IG # 0.02 10e3/ul Normal 0.00-0.[address] [facility] Comment on above: Performed By: #### C MP, LIPID #### [facility] [address] [place] [address] Dr. Kylee Bunch IG % 0.2 % Normal 0.0-0.[address] [facility] Comment on above: Performed By: #### C MP, LIPID #### [facility] [address] [place] [address] Dr. Kylee Bunch LYMPH # 1.2 103/ul Normal 1.2-3.[address] [facility] Comment on above: Performed By: #### C MP, LIPID #### [facility] [address] [place] [address] Dr. Kylee Bunch Lymphocytes/100 WBC (Bld) 11.3 % Critically low 20.5-60.[address] [facility] Comment on above: Performed By: #### C MP, LIPID #### [facility] [address] [place] [address] Dr. Kylee Bunch MANUAL DIFF REQ NO Normal [facility] Comment on above: Performed By: #### C MP, LIPID #### [facility] [address] [place] [address] Dr. Kylee Bunch MCH (RBC) [Entitic mass] 27.1 pg Normal 25.9-34.[address] [facility] Comment on above: Performed By: #### C MP, LIPID #### [facility] [address] [place] [address] Dr. Kylee Bunch MCHC (RBC) [Mass/Vol] 34.1 g/dL Normal 29.9-35.[address] [facility] Comment on above: Performed By: #### C MP, LIPID #### [facility] [address] [place] [address] Dr. Kylee Bunch MCV (RBC) [Entitic vol] 79.6 fL Critically low 80.0-94.0 [facility] Comment on above: Performed By: #### C MP, LIPID #### [facility] [address] [place] [address] Dr. Kylee Bunch MONO # 0.5 103/ul Normal 0.3-0.8 [facility] Comment on above: Performed By: #### C MP, LIPID #### [facility] [address] [place] [address] Dr. Kylee Bunch Monocytes/100 WBC (Bld) 4.5 % Normal 1.7-12.0 [facility] Comment on above: Performed By: #### C MP, LIPID #### [facility] [address] [place] [address] Dr. Kylee Bunch NEUT # 8.5 103/ul Critically high 1.4-6.5 [facility] Comment on above: Performed By: #### C MP, LIPID #### [facility] [address] [place] [address] Dr. Kylee Bunch Neutrophils/100 WBC (Bld) 83.3 % Critically high 43.0-75.[address] [facility] Comment on above: Performed By: #### C MP, LIPID #### [facility] [address] [place] [address] Dr. Kylee Bunch Platelet mean volume (Bld) [Entitic vol] 12.6 fL Normal 9.5-13.[address] [facility] Comment on above: Performed By: #### C MP, LIPID #### [facility] [address] [place] [address] Dr. Kylee Bunch PLT 335 103/ul Normal 150-450 [facility] Comment on above: Performed By: #### C MP, LIPID #### [facility] [address] [place] [address] Dr. Kylee Bunch RBC 4.65 106/ul Critically low 4.70-6.10 [facility] Comment on above: Performed By: #### C MP, LIPID #### [facility] [address] [place] [address] Dr. Kylee Bunch WBC 10.2 103/ul Normal 4.0-11.[address] [facility] Comment on above: Performed By: #### C MP, LIPID #### [facility] [address] [place], [place] [address] Dr. Kylee Bunch CBC with Diffon 01-02-2022 Abs. Basophil 0.00 k/uL Normal 0.00-0.20 [facility] Comment on above: Performed By: #### C DP, MELVIN, BMPX, IPF #### [facility] [address] [place] [address] Orthopedic Specialist: Francisco J Fonseca MD Abs.Imm.Granulocyte 0.00 k/uL Normal 0.00-0.30 [facility] Comment on above: Performed By: #### C DP, MELVIN, BMPX, IPF #### [place] [address] Orthopedic Specialist: Francisco J Fonseca MD Abs.Neutrophil (Seg) 19.47 k/uL High 1.50-8.10 [facility] Comment on above: Performed By: #### C DP, MELVIN, BMPX, IPF #### [place] [address] Orthopedic Specialist: Francisco J Fonseca MD Basophils/100 WBC (Bld) 0 % Normal 0-2 [facility] Comment on above: Performed By: #### C DP, MELVIN, BMPX, IPF #### [facility] [address] [place] [address] Orthopedic Specialist: Francisco J Fonseca MD Eosinophils (Bld) [#/Vol] 0.00 10*3/uL Normal 0.00-0.44 [facility] Comment on above: Performed By: #### C DP, MELVIN, BMPX, IPF #### [facility] [address] [place] [address] Orthopedic Specialist: Francisco J Fonseca MD Eosinophils/100 WBC (Bld) 0 % Low 1-4 [facility] Comment on above: Performed By: #### C DP, MELVIN, BMPX, IPF #### [address] [address] Orthopedic Specialist: Francisco J Fonseca MD Immature granulocytes/100 WBC (Bld) 0 % Normal 0 [facility] Comment on above: Performed By: #### C DP, MELVIN, BMPX, IPF #### [address] [address] Orthopedic Specialist: Francisco J Fonseca MD Lymphocytes (Bld) [#/Vol] 0.41 10*3/uL Low 1.10-3.70 [facility] Comment on above: Performed By: #### C DP, MELVIN, BMPX, IPF #### [address] [address] Orthopedic Specialist: Francisco J Fonseca MD Lymphocytes/100 WBC (Bld) 2 % Low 24-43 [facility] Comment on above: Performed By: #### C DP, MELVIN, BMPX, IPF #### [address] [address] Orthopedic Specialist: Francisco J Fonseca MD Monocytes (Bld) [#/Vol] 0.62 10*3/uL Normal 0.10-1.20 [facility] Comment on above: Performed By: #### C DP, MELVIN, BMPX, IPF #### [address] [address] Orthopedic Specialist: Francisco J Fonseca MD Monocytes/100 WBC (Bld) 3 % Normal 3-12 [facility] Comment on above: Performed By: #### C DP, MELVIN, BMPX, IPF #### [address] [address] Orthopedic Specialist: Francisco J Fonseca MD Morphology Walter (Bld) [Interp] ANISOCYTOSIS PRESENT Normal [facility] Comment on above: Performed By: #### C DP, MELVIN, BMPX, IPF #### [address] [address] Orthopedic Specialist: Francisco J Fonseca MD Neutrophil (Seg) 95 % High 36-65 [facility] Comment on above: Performed By: #### C DP, MELVIN, BMPX, IPF #### [place] [address] Orthopedic Specialist: Francisco J Fonseca MD Erythrocyte distribution width (RBC) [Ratio] 18.3 % High 11.8-14.4 [facility] Comment on above: Performed By: #### C DP, MELVIN, BMPX, IPF #### [address] [address] Orthopedic Specialist: Francisco J Fonseca MD Hematocrit (Bld) [Volume fraction] 38.9 % Low 40.7-50.3 [facility] Comment on above: Performed By: #### C DP, MELVIN, BMPX, IPF #### [address] [address] Orthopedic Specialist: Francisco J Fonseca MD Hemoglobin (Bld) [Mass/Vol] 12.9 g/dL Low 13.0-17.0 [facility] Comment on above: Performed By: #### C DP, MELVIN, BMPX, IPF #### [address] [address] Orthopedic Specialist: Francisco J Fonseca MD MCH (RBC) [Entitic mass] 26.9 pg Normal 25.2-33.5 [facility] Comment on above: Performed By: #### C DP, MELVIN, BMPX, IPF #### [address] [address] Orthopedic Specialist: Francisco J Fonseca MD MCHC (RBC) [Mass/Vol] 33.2 g/dL Normal 28.4-34.8 [facility] Comment on above: Performed By: #### C DP, MELVIN, BMPX, IPF #### [address] [address] Orthopedic Specialist: Francisco J Fonseca MD MCV (RBC) [Entitic vol] 81.2 fL Low 82.6-102.9 [facility] Comment on above: Performed By: #### C DP, MELVIN, BMPX, IPF #### [address] [address] Orthopedic Specialist: Francisco J Fonseca MD NRBC Automated 0.0 per 100 WBC Normal 0.0 [facility] Comment on above: Performed By: #### C DP, MELVIN, BMPX, IPF #### [address] [address] Orthopedic Specialist: Francisco J Fonseca MD Platelet mean volume (Bld) [Entitic vol] 12.4 fL Normal 8.1-13.5 [facility] Comment on above: Performed By: #### C DP, MELVIN, BMPX, IPF #### [address] [address] Orthopedic Specialist: Francisco J Fonseca MD Platelets (Bld) [#/Vol] 324 10*3/uL Normal 138-453 [facility] Comment on above: Performed By: #### C DP, MELVIN, BMPX, IPF #### [address] [address] Orthopedic Specialist: Francisco J Fonseca MD RBC (Bld) [#/Vol] 4.79 10*6/uL Normal 4.21-5.77 [facility] Comment on above: Performed By: #### C DP, MELVIN, BMPX, IPF #### [address] [address] Orthopedic Specialist: Francisco J Fonseca MD WBC (Bld) [#/Vol] 20.5 10*3/uL High 3.5-11.3 [facility] Comment on above: Performed By: #### C DP, MELVIN, BMPX, IPF #### [facility] [place] [address] Orthopedic Specialist: Francisco J Fonseca MD CT ABD/PELV W [...] identified. Background diffuse body wall edema with [id number] volume of abdominal and pelvic ascites noted. [...] ROLA HOLCOMB Date: 2022-01-02 09:27 Normal [facility] Covid-19 PCR (CVDTB)on 12-11 SARS-CoV-2 (COVID-19) RNA ANASTASIA+probe Ql (Unsp spec) Not detected Normal NOT DETECTED [facility] Comment on above: Result Comment: When [...] for this test is supported by the [place] of Health and Human Service's declaration that [...] used). Performed By: #### C VDTBH #### [facility] [address] [place] [address] Dr. Kylee Bunch ER URINE PROFILEon 2 Bilirubin Ql (U) Negative Normal NEGATIVE [facility] Comment on above: Performed By: #### C MP, LIPID #### [facility] [address] [place] [address] Dr. Kylee Bnuch Clarity (U) CLEAR Normal CLEAR [facility] Comment on above: Performed By: #### C MP, LIPID #### [facility] [address] [place] [address] Dr. Kylee Bunch Color (U) LT. YELLOW Normal YELLOW [facility] Comment on above: Performed By: #### C MP, LIPID #### [facility] [address] [place] [address] Dr. Kylee Bunch ERUAHD A micrscopic examina tion will be performed if indicated. Normal [facility] Comment on above: Performed By: #### C MP, LIPID #### [facility] [address] [place] [address] Dr. Kylee Bunch Hemoglobin Ql (U) TRACE-INTACT Abnormal NEGATIVE [facility] Comment on above: Performed By: #### C MP, LIPID #### [facility] [address] [place] [address] Dr. Kylee Bunch Ketones Ql (U) 15 mg/dl Abnormal NEGATIVE [facility] Comment on above: Performed By: #### C MP, LIPID #### [facility] [address] [place] [address] Dr. Kylee Bunch LEUKOCYTES Negative Normal NEGATIVE [facility] Comment on above: Performed By: #### C MP, LIPID #### [facility] [address] [place] [address] Dr. Kylee Bunch Nitrite Ql (U) Negative Normal NEGATIVE [facility] Comment on above: Performed By: #### C MP, LIPID #### [facility] [address] [place] [address] Dr. Kylee Bunch pH (U) 5.5 [pH] Normal 5-[address] [facility] Comment on above: Performed By: #### C MP, LIPID #### [facility] [address] [place] [address] Dr. Kylee Bunch SPEC GRAVITY 1.015 Normal 1.005-<=1. [address] [facility] Comment on above: Performed By: #### C MP, LIPID #### [facility] [address] [place] [address] Dr. Kylee Bunch UA PROTEIN Negative Normal NEGATIVE/ TRACE [facility] Comment on above: Performed By: #### C MP, LIPID #### [facility] [address] [place] [address] Dr. Kylee Bunch UR MICRO IND INDICATED Normal [facility] Comment on above: Performed By: #### C MP, LIPID #### [facility] [address] [place] [address] Dr. Kylee Bunch Urobilinogen Qn (U) 0.2 {Gemini'U}/dL Normal 0.2 - 1. [address] [facility] Comment on above: Performed By: #### C MP, LIPID #### [facility] [address] [place] [address] Dr. Kylee Bunch LIPASEon 01-02-2022 Lipase [Catalytic activity/Vol] 9.0 U/L Critically low 73.0-393.[address] [facility] Comment on above: Performed By: #### L IPA, MARGA, LIVER, BMP #### [facility] [address] [place] [address] [address] Kylee Bunch LIVER PROFILEon 01-02-2022 Albumin [Mass/Vol] 3.3 g/dL Critically low 3.4-5.0 [facility] Comment on above: Performed By: #### L IPA, MARGA, LIVER, BMP #### [facility] [address] [place] [address] Dr. Kylee Bunch Albumin/Globulin [Mass ratio] 0.9 {ratio} Normal [facility] Comment on above: Performed By: #### L IPA, MARGA, LIVER, BMP #### [facility] [address] [place] [address] Dr. Kylee Bunch ALP [Catalytic activity/Vol] 116 U/L Normal 46-[address] [facility] Comment on above: Performed By: #### L IPA, MARGA, LIVER, BMP #### [facility] [address] [place] [address] Dr. Kylee Bunch ALT [Catalytic activity/Vol] 21 U/L Normal 16-[address] [facility] Comment on above: Performed By: #### L IPA, MARGA, LIVER, BMP #### [facility] [address] [place] [address] Dr. Kylee Bunch AST [Catalytic activity/Vol] 24 U/L Normal 15-[address] [facility] Comment on above: Performed By: #### L IPA, MARGA, LIVER, BMP #### [facility] [address] [place] [address] Dr. Kylee Bunch BILI, CONJUGATED 0.1 mg/dL Normal 0.0-0.2 [facility] Comment on above: Performed By: #### L IPA, MARGA, LIVER, BMP #### [facility] [address] [place] [address] Dr. Kylee Bunch Bilirubin [Mass/Vol] 0.6 mg/dL Normal 0.2-1.[address] [facility] Comment on above: Performed By: #### L IPA, MARGA, LIVER, BMP #### [facility] [address] [place] [address] [address] Kylee Bunch Globulin (S) [Mass/Vol] 3.6 g/dL Normal [facility] Comment on above: Performed By: #### L IPA, MARGA, LIVER, BMP #### [facility] [address] [place], [place] [address] Dr. Kylee Bunch Protein [Mass/Vol] 6.9 g/dL Normal 6.4-8.2 [facility] Comment on above: Performed By: #### L IPA, MARGA, LIVER, BMP #### [facility] [address] [place], [place] [address] Dr. Kylee Bunch Laboratory - Chemistry and C hemistry - challengeon 01-02-2022 Glucose [Mass/Vol] 223 mg/dL [facility] [employer] [facility] Comment on above: The ADA and AACC rec ommend providing the estimated average glucose result to permit better patient understanding of their HBA1c result. Glucose [Mass/Vol] 227 mg/dL High 75 - 110 mg/dL [facility] Glucose [Mass/Vol] 290 mg/dL High 75 - 110 mg/dL [facility] [employer] Glucose [Mass/Vol] 300 mg/dL High 75 - 110 mg/dL [facility] [employer] Glucose [Mass/Vol] 323 mg/dL High 75 - 110 mg/dL [facility] Anion gap [Moles/Vol] 12 mmol/L 9 - 17 mmol/L [facility] [employer] Calcium [Mass/Vol] 8.6 mg/dL 8.6 - 10. 4 mg/dL [facility] [employer] Chloride [Moles/Vol] 96 mmol/L Low 98 - 10 7 mmol/L [facility] CO2 [Moles/Vol] 22 mmol/L 20 - 31 mmol/L [facility] Creatinine [Mass/Vol] 0.81 mg/dL 0.70 - 1.20 mg/dL [facility] GFR/1.73 sq M.predicted MDRD (S/P/Bld) [Vol rate/Area] [facility] [employer] Comment on above: Average GFR for 70 o r more years old: 75 mL/min/1.73sq m Chronic Kidney Disease: <60 mL/min/1.73sq m Kidney failure: <15 mL/min/1.73sq m eGFR calculated using average adult body mass. Additional eGFR calculator available at: http://www.Visual[employer]/multiple_crcl_2012.htm Glucose [Mass/Vol] 452 mg/dL Critically high 70 - 9 9 mg/dL [facility] Potassium [Moles/Vol] 4.1 mmol/L 3.7 - 5.3 mmol/L [facility] Sodium [Moles/Vol] 130 mmol/L Low [...] [facility] Basophils (Bld) [#/Vol] 0.00 10*3/uL [facility] Basophils/100 WBC (Bld) 0 % 0 - 2 % [facility] Eosinophils/100 WBC (Bld) 0 % Low [...] HOSPITAL WBC (Bld) [#/Vol] 20.5 10*3/uL High [facility] Lactate, Sepsison 01-02-2022 Lactic Acid,Sep Wbld 1.7 mmol/L Normal 0.5-1.9 [facility] Comment on above: Performed By: #### C DP, MELVIN, BMPX, IPF #### [address] [address] Orthopedic Specialist: Francisco J Fonseca MD Liver Profileon 01-02-2022 Albumin [Mass/Vol] 3.6 g/dL Normal 3.5-5.2 [facility] Comment on above: Performed By: #### C DP #### [address] [address] Orthopedic Specialist: Francisco J Fonseca MD Albumin/Glob Ratio 1.3 Normal 1.0-2.5 [facility] Comment on above: Performed By: #### C DP #### [address] [address] Orthopedic Specialist: Francisco J Fonseca MD Alkaline Phos 100 U/L Normal 40-129 [facility] Comment on above: Performed By: #### C DP #### [address] [address] Orthopedic Specialist: Francisco J Fonseca MD ALT [Catalytic activity/Vol] 15 U/L Normal 5-41 [facility] Comment on above: Performed By: #### C DP #### [address] [address] Orthopedic Specialist: Francisco J Fonseca MD AST [Catalytic activity/Vol] 18 U/L Normal <40 [facility] Comment on above: Performed By: #### C DP #### [address] [address] Orthopedic Specialist: Francisco J Fonseca MD Bilirubin [Mass/Vol] 0.45 mg/dL Normal 0.3-1.2 [facility] Comment on above: Performed By: #### C DP #### [address] [address] Orthopedic Specialist: Francisco J Fonseca MD Bilirubin, Indirect 0.28 mg/dL Normal 0.00-1.00 [facility] Comment on above: Performed By: #### C DP #### [facility] [address] [place] [address] Orthopedic Specialist: Francisco J Fonseca MD Bilirubin.indirect [Mass/Vol] 0.17 mg/dL Normal <0.31 [facility] Comment on above: Performed By: #### C DP #### [facility] [address] [place] [address] Orthopedic Specialist: Francisco J Fonseca MD Protein [Mass/Vol] 6.4 g/dL Normal 6.4-8.3 [facility] Comment on above: Performed By: #### C DP #### [facility] [address] [place] [id number] Orthopedic Specialist: Francisco J Fonseca MD No Panel Informationon 01-02 Interpretation and review of laboratory results Abnormal [facility] Interpretation and review of laboratory results Abnormal [facility] Enteric tube needs t o be advanced 10 cm. [facility] RIS CONSOLIDATED EXAMINATION: ONE [...] to be advanced at least 10 cm. [facility] RIS CONSOLIDATED Eulogio Winslow [...] tube needs to be advanced 10 cm. [facility] Work Phone: Interpretation and review of laboratory results Abnormal [facility] Interpretation and review of laboratory results Abnormal [facility] Radiology Study observation (narrative) [facility] Work Phone: Absolute Eos # 0.00 [facility] Absolute Immature Granulocyte 0.00 [facility] Absolute Lymph # 0.41 Low [facility] Absolute [place] # 0.62 [facility] Interpretation and review of laboratory results Abnormal [facility] NRBC Automated 0.0 0.0 per 100 WBC [facility] Segs Absolute 19.47 High [facility] Interpretation and review of laboratory results Abnormal [facility] Interpretation and review of laboratory results Abnormal [facility] Lactic Acid, Sepsis, Whole Blood 1.7 mmol/L 0.5 - 1.9 mmol/L [facility] GFR >60 >60 mL/min [facility] GFR Non- >60 >60 mL/min [facility] Interpretation and review of laboratory results Abnormal [facility] Bilirubin, Indirect 0.28 mg/dL 0.00 - 1.00 mg/dL [facility] Interpretation and review of laboratory results Abnormal [facility] No Panel InformationOrdered By: Eulogio Winslow on 01-02-2022 [facility] Work Phone: POINT OF CARE GLUCOSEon 12-11 Glucose [Mass/Vol] 408 mg/dL Critically high 74-106 [facility] Comment on above: Performed By: #### P OCGLUC #### [facility] [address] [place] [address] Dr. Kylee Bunch PROF CHEM 8 (BAS METB)on Anion gap [Moles/Vol] 16.4 mmol/L Normal [facility] Comment on above: Performed By: #### L IPA, MARGA, LIVER, BMP #### [facility] [address] [place] [address] Dr. Kylee Bunch Calcium [Mass/Vol] 8.8 mg/dL Normal 8.5-10.1 [facility] Comment on above: Performed By: #### L IPA, MARGA, LIVER, BMP #### [facility] [address] [place] [address] Dr. Kylee Bunch Chloride [Moles/Vol] 96 mmol/L Critically low 98-[address] [facility] Comment on above: Performed By: #### L IPA, MARGA, LIVER, BMP #### [facility] [address] [place] [address] Dr. Kylee Bunch CO2 [Moles/Vol] 25.1 mmol/L Normal 21.0-32.0 [facility] Comment on above: Performed By: #### L IPA, MARGA, LIVER, BMP #### [facility] [address] [place] [address] Dr. Kylee Bunch Creatinine [Mass/Vol] 1.22 mg/dL Normal 0.70-1.[address] [facility] Comment on above: Performed By: #### L IPA, MARGA, LIVER, BMP #### [facility] [address] [place] [address] Dr. Kylee Bunch EGFR-AF SENEGALESE >60 Normal >=60 [facility] Comment on above: Performed By: #### L IPA, MARGA, LIVER, BMP #### [facility] [address] [place] [address] Dr. Kylee Bunch EGFR-NON AF [place]ENEGALESE 57 mL/min/1.73m2 Critically low >=[address] [facility] Comment on above: Performed By: #### L IPA, MARGA, LIVER, BMP #### [facility] [address] [place] [address] [address] Kylee Bunch Glucose [Mass/Vol] 579 mg/dL Critically high 74-106 [facility] Comment on above: Result Comment: repe ated Performed By: #### L IPA, MARGA, LIVER, BMP #### [facility] [address] [place] [address] Dr. Kylee Bunch Potassium [Moles/Vol] 4.5 mmol/L Normal 3.5-5.[address] [facility] Comment on above: Performed By: #### L IPA, MARGA, LIVER, BMP #### [facility] [address] [place] [address] Dr. Kylee Bunch Sodium [Moles/Vol] 133 mmol/L Critically low 136-145 [facility] Comment on above: Performed By: #### L IPA, MARGA, LIVER, BMP #### [facility] [address] [place] [address] Dr. Kylee Bunch Urea nitrogen [Mass/Vol] 19.0 mg/dL Critically high 7.0-18.[address] [facility] Comment on above: Performed By: #### L IPA, MARGA, LIVER, BMP #### [facility] [address] [place] [address] Dr. Kylee Bunch Urea nitrogen/Creatinine [Mass ratio] 15.6 mg/mg Normal [facility] Comment on above: Performed By: #### L IPA, MARGA, LIVER, BMP #### [facility] [address] [place] [address] Dr. Kylee Bunch PTon 01-02-2022 INR Coag (PPP) [Relative time] 1.2 {INR} Normal [facility] Comment on above: Result Comment: Therapeutic Range: Moderate Anticoagulant Intensity: INR = 2.0-3.0 High Anticoagulant Intensity: INR = 2.5-3.5 Performed By: #### C DP, MELVIN, BMPX, IPF #### [facility] [place], [place] [id number] Orthopedic Specialist: Francisco J Fonseca MD PT Coag (PPP) [Time] 12.5 s High 9.1-12.3 [facility] Comment on above: Performed By: #### C DP, MELVIN, BMPX, IPF #### [facility] [address] [place] [address] Orthopedic Specialist: Francisco J Fonseca MD URINE MICROSCOPIC ONLYon BACTERIA NONE SEEN Normal NONE SEEN [facility] Comment on above: Performed By: #### C MP, LIPID #### [facility] [address] [place] [address] Dr. Kylee Bunch Bacteria identified Cx Nom (U) NOT INDICATED Normal [facility] Comment on above: Performed By: #### C MP, LIPID #### [facility] [address] [place] [address] Dr. Kylee Bunch CAST NONE SEEN Normal NONE SEEN [facility] Comment on above: Performed By: #### C MP, LIPID #### [facility] [address] [place] [address] Dr. Kylee Bunch Crystals LM Nom (Urine sed) NONE SEEN Normal NONE SEEN [facility] Comment on above: Performed By: #### C MP, LIPID #### [facility] [address] [place] [address] Dr. Kylee Bunch Epithelial cells LM Ql (Urine sed) RARE Normal NONE SEEN /RARE [facility] Comment on above: Performed By: #### C MP, LIPID #### [facility] [address] [place] [address] Dr. Kylee Bunch MUCOUS NONE SEEN Normal NONE SEEN [facility] Comment on above: Performed By: #### C MP, LIPID #### [facility] [address] [place] [address] Dr. Kylee Bunch RBC 0-2 Normal 0-2 [facility] Comment on above: Performed By: #### C MP, LIPID #### [facility] [address] [place] [address] Dr. Kylee Bunch WBC NONE SEEN Normal NONE SEEN [facility] Comment on above: Performed By: #### C MP, LIPID #### [facility] [address] [place] [address] Dr. Kylee Bunch Reminderson 06-21-2019 Reminders - [...] have another colonoscopy mlc Normal [facility] Vital Signs Date Time Vital Sign Value Performing Clinician Facility 03-27-2025 10:08-0400 Body height 177.8 cm Marie YunCloud Amenity DO Work Phone: [facility] 03-27-2025 10:08-0400 Body mass index (BMI) [Ratio] 19.5 kg/m2 Marie JamaCloud Amenity DO Work Phone: [facility] 03-27-2025 10:08-0400 Body weight 61.68 kg Marie JamaCloud Amenity DO Work Phone: [facility] 03-27-2025 10:08-0400 Diastolic blood pressure 72 mm[Hg] Marie Jamak DO Work Phone: [facility] 03-27-2025 10:08-0400 Heart rate 80 /min Marie JamaCloud Amenity DO Work Phone: [facility] 03-27-2025 10:08-0400 Respiratory rate 18 /min Marie Yunk DO Work Phone: [facility] 03-27-2025 10:08-0400 SaO2% (BldA) [Mass fraction] 98 % Marie Yunk DO Work Phone: [facility] 03-27-2025 10:08-0400 Systolic blood pressure 138 mm[Hg] Marie Jamak DO Work Phone: [facility] 01-02-2025 11:38-0400 Body height 177.8 cm Marie Castro DO Work Phone: [facility] 01-02-2025 11:38-0400 Body mass index (BMI) [Ratio] 19.8 kg/m2 Marie Yunk DO Work Phone: [facility] 01-02-2025 11:38-0400 Body weight 62.6 kg Marie Yunk DO Work Phone: [facility] 01-02-2025 11:38-0400 Diastolic blood pressure 66 mm[Hg] Marie Yunk DO Work Phone: [facility] 01-02-2025 11:38-0400 Heart rate 64 /min Marie Yunk DO Work Phone: [facility] 01-02-2025 11:38-0400 SaO2% (BldA) [Mass fraction] 96 % Marie Castro DO Work Phone: [facility] 01-02-2025 11:38-0400 Systolic blood pressure 122 mm[Hg] Marie Yunk DO Work Phone: [facility] 10-26-2024 12:09-0400 Body height 177.8 cm Ayana Zavala APRN.[employer] Work Phone: [facility] 10-26-2024 12:09-0400 Body mass index (BMI) [Ratio] 19.3 kg/m2 Ayana Zavala APRN.[employer] Work Phone: [facility] 10-26-2024 12:09-0400 Body weight 61 kg Ayana Zavala SILK SPOOLER.[employer] Work Phone: [facility] 10-26-2024 12:09-0400 Diastolic blood pressure 80 mm[Hg] Ayana Zavala APRN.[employer] Work Phone: [facility] 10-26-2024 12:09-0400 Heart rate 60 /min Ayana Zavala APRN.[employer] Work Phone: [facility] 10-26-2024 12:09-0400 SaO2% (BldA) [Mass fraction] 99 % Ayana Zavala SILK SPOOLER.[employer] Work Phone: [facility] 10-26-2024 12:09-0400 Systolic blood pressure 163 mm[Hg] Ayana Zavala SILK SPOOLER.[employer] Work Phone: [facility] 09-25-2024 14:27-0400 Body mass index (BMI) [Ratio] 19.96 kg/m2 Ayana Zavala SILK SPOOLER.[employer] Work Phone: [facility] 09-25-2024 14:27-0400 Body weight 63.1 kg Ayana Zavala SILK SPOOLER.[employer] Work Phone: [facility] 09-25-2024 14:27-0400 Diastolic blood pressure 93 mm[Hg] Ayana Zavala SILK SPOOLER.[employer] Work Phone: [facility] 09-25-2024 14:27-0400 Heart rate 60 /min Ayana Zavala SILK SPOOLER.[employer] Work Phone: [facility] 09-25-2024 14:27-0400 SaO2% (BldA) [Mass fraction] 100 % Ayana Zavala SILK SPOOLER.[employer] Work Phone: [facility] 09-25-2024 14:27-0400 Systolic blood pressure 162 mm[Hg] Ayana Zavala SILK SPOOLER.[employer] Work Phone: [facility] 08-31-2024 10:15-0500 Body height 177.8 cm Marei Castro DO Work Phone: [facility] 08-31-2024 10:15-0500 Body mass index (BMI) [Ratio] 20 kg/m2 Marie Castro DO Work Phone: [facility] 08-31-2024 10:15-0500 Body weight 63.5 kg Marie Castro DO Work Phone: [facility] 08-31-2024 10:15-0500 Diastolic blood pressure 78 mm[Hg] Marie Castro DO Work Phone: [facility] 08-31-2024 10:15-0500 Heart rate 60 /min Marie Vaschak DO Work Phone: [facility] 08-31-2024 10:15-0500 Respiratory rate 18 /min Marie Vaschak DO Work Phone: [facility] 08-31-2024 10:15-0500 SaO2% (BldA) [Mass fraction] 97 % Marie Vaschak DO Work Phone: [facility] 08-31-2024 10:15-0500 Systolic blood pressure 134 mm[Hg] Marie Vaschak DO Work Phone: [facility] 08-30-2024 13:54-0500 Diastolic blood pressure 70 mm[Hg] Marie Vaschak DO Work Phone: [facility] 08-30-2024 13:54-0500 Systolic blood pressure 120 mm[Hg] Marie Vaschak DO Work Phone: [facility] 08-30-2024 13:50-0500 Heart rate 61 /min Marie Vaschak DO Work Phone: [facility] 08-30-2024 13:50-0500 SaO2% (BldA) [Mass fraction] 98 % Marie Vaschak DO Work Phone: [facility] 07-20-2024 10:13-0500 Body mass index (BMI) [Ratio] 21.24 kg/m2 Yomi Chong THREAD CHECKER Work Phone: [facility] 07-20-2024 10:13-0500 Body weight 67.13 kg Yomi Chong THREAD CHECKER Work Phone: [facility] 07-20-2024 10:13-0500 Diastolic blood pressure 60 mm[Hg] Yomi Chong THREAD CHECKER Work Phone: [facility] 07-20-2024 10:13-0500 Heart rate 74 /min Yomi Chong THREAD CHECKER Work Phone: [facility] 07-20-2024 10:13-0500 SaO2% (BldA) [Mass fraction] 92 % Yomi Chiki THREAD CHECKER Work Phone: [facility] 07-20-2024 10:13-0500 Systolic blood pressure 122 mm[Hg] Yomi Chiki THREAD CHECKER Work Phone: [facility] 07-17-2024 13:57-0500 Diastolic blood pressure 70 mm[Hg] Marie Vaschak DO Work Phone: [facility] 07-17-2024 13:57-0500 Systolic blood pressure 127 mm[Hg] Marie Vaschak DO Work Phone: [facility] 07-17-2024 13:17-0500 Body height 177.8 cm Marie Vaschak DO Work Phone: [facility] 07-17-2024 12:03-0500 Body temperature 97.1 [degF] Marie Vaschak DO Work Phone: [facility] 07-17-2024 12:03-0500 Heart rate 60 /min Marie Vaschak DO Work Phone: [facility] 07-17-2024 12:03-0500 Respiratory rate 12 /min Marie Vaschak DO Work Phone: [facility] 07-17-2024 12:03-0500 SaO2% (BldA) [Mass fraction] 95 % Marie Vaschak DO Work Phone: [facility] 07-17-2024 03:36-0500 Body height 177.8 cm Marie Vaschak DO Work Phone: [facility] 07-17-2024 03:36-0500 Body temperature 97.6 [degF] Marie Vaschak DO Work Phone: [facility] 07-17-2024 03:36-0500 Body weight 63.5 kg Marie Vaschak DO Work Phone: [facility] 07-17-2024 03:36-0500 Diastolic blood pressure 92 mm[Hg] Marie Vaschak DO Work Phone: [facility] 07-17-2024 03:36-0500 Heart rate 61 /min Marie Yunk DO Work Phone: [facility] 07-17-2024 03:36-0500 Respiratory rate 15 /min Marie Vaschak DO Work Phone: [facility] 07-17-2024 03:36-0500 SaO2% (BldA) [Mass fraction] 91 % Marie Hurleychak DO Work Phone: [facility] 07-17-2024 03:36-0500 Systolic blood pressure 161 mm[Hg] Marie Xavichak DO Work Phone: [facility] 07-06-2024 11:15-0500 Body mass index (BMI) [Ratio] 21.61 kg/m2 Ayana Zavala SILK SPOOLER.[employer] Work Phone: [facility] 07-06-2024 11:15-0500 Body weight 68.3 kg Ayana Zavala SILK SPOOLER.[employer] Work Phone: [facility] 07-06-2024 11:15-0500 Diastolic blood pressure 69 mm[Hg] Ayana Zavala SILK SPOOLER.[employer] Work Phone: [facility] 07-06-2024 11:15-0500 Heart rate 60 /min Ayana Zavala SILK SPOOLER.[employer] Work Phone: [facility] 07-06-2024 11:15-0500 Systolic blood pressure 114 mm[Hg] Ayana Souleymane SILK SPOOLER.[employer] Work Phone: [facility] 07-03-2024 09:23-0500 Body height 177.8 cm Beto Oh MD Work Phone: [facility] 07-03-2024 09:23-0500 Body mass index (BMI) [Ratio] 20.37 kg/m2 Beto Oh MD Work Phone: [facility] 07-03-2024 09:23-0500 Body weight 64.41 kg Beto Oh MD Work Phone: [facility] 06-21-2024 12:00-0500 Body temperature 97.6 [degF] Marie Vaschak DO Work Phone: [facility] 06-21-2024 12:00-0500 Diastolic blood pressure 73 mm[Hg] Marie Vaschak DO Work Phone: [facility] 06-21-2024 12:00-0500 Heart rate 68 /min Marie Vaschak DO Work Phone: [facility] 06-21-2024 12:00-0500 Respiratory rate 16 /min Marie Vaschak DO Work Phone: [facility] 06-21-2024 12:00-0500 SaO2% (BldA) [Mass fraction] 98 % Marie Vaschak DO Work Phone: [facility] 06-21-2024 12:00-0500 Systolic blood pressure 136 mm[Hg] Marie Vaschak DO Work Phone: [facility] 06-21-2024 06:00-0500 Body weight 63.6 kg Marie Vaschak DO Work Phone: [facility] 06-20-2024 12:12-0500 Body height 180.34 cm Marie Vaschak DO Work Phone: [facility] 06-19-2024 14:59-0500 Body height 177.8 cm Marie Vaschak DO Work Phone: [facility] 06-19-2024 14:59-0500 Body mass index (BMI) [Ratio] 20.37 kg/m2 Marie Vaschak DO Work Phone: [facility] 06-19-2024 14:59-0500 Body weight 64.41 kg Marie Vaschak DO Work Phone: [facility] 06-19-2024 14:59-0500 Diastolic blood pressure 62 mm[Hg] Marie Vaschak DO Work Phone: [facility] 06-19-2024 14:59-0500 Heart rate 70 /min Marie Vaschak DO Work Phone: [facility] 06-19-2024 14:59-0500 Systolic blood pressure 118 mm[Hg] Marie Vaschak DO Work Phone: [facility] 06-18-2024 15:42-0500 Body temperature 97.6 [degF] Marie Vaschak DO Work Phone: [facility] 06-18-2024 15:42-0500 Diastolic blood pressure 94 mm[Hg] Marie Vaschak DO Work Phone: [facility] 06-18-2024 15:42-0500 Heart rate 60 /min Marie Xavichak DO Work Phone: [facility] 06-18-2024 15:42-0500 Respiratory rate 19 /min Marie Vaschak DO Work Phone: [facility] 06-18-2024 15:42-0500 SaO2% (BldA) [Mass fraction] 96 % Marie Vaschak DO Work Phone: [facility] 06-18-2024 15:42-0500 Systolic blood pressure 189 mm[Hg] Marie Jamak DO Work Phone: [facility] 06-18-2024 05:28-0500 Body weight 65.5 kg Marie Vaschak DO Work Phone: [facility] 06-16-2024 19:55-0500 Body height 177.8 cm Marie Vaschak DO Work Phone: [facility] 05-30-2024 14:20-0500 Body height 177.8 cm Marie Xavichak DO Work Phone: [facility] 05-30-2024 14:20-0500 Body mass index (BMI) [Ratio] 21.09 kg/m2 Marie Yunk DO Work Phone: [facility] 05-30-2024 14:20-0500 Body weight 66.68 kg Marie Hurleychak DO Work Phone: [facility] 05-30-2024 14:20-0500 Diastolic blood pressure 80 mm[Hg] Marie Vaschak DO Work Phone: [facility] 05-30-2024 14:20-0500 Heart rate 61 /min Marie Yunk DO Work Phone: [facility] 05-30-2024 14:20-0500 SaO2% (BldA) [Mass fraction] 97 % Marie Yunk DO Work Phone: [facility] 05-30-2024 14:20-0500 Systolic blood pressure 130 mm[Hg] Marie Yunk DO Work Phone: [facility] 05-25-2024 08:00-0500 Body temperature 98 [degF] Marie Yunk DO Work Phone: [facility] 05-25-2024 08:00-0500 Diastolic blood pressure 96 mm[Hg] Marie Hurleychak DO Work Phone: [facility] 05-25-2024 08:00-0500 Heart rate 60 /min Marie Vaschak DO Work Phone: [facility] 05-25-2024 08:00-0500 Respiratory rate 16 /min Marie Vaschak DO Work Phone: [facility] 05-25-2024 08:00-0500 SaO2% (BldA) [Mass fraction] 97 % Marie Yunk DO Work Phone: [facility] 05-25-2024 08:00-0500 Systolic blood pressure 151 mm[Hg] Marie Hurleychak DO Work Phone: [facility] 05-25-2024 06:00-0500 Body weight 66 kg Marie Vaspauk DO Work Phone: [facility] 05-24-2024 20:12-0500 Body height 177.8 cm Marie Vaschak DO Work Phone: [facility] 05-24-2024 19:25-0500 Inhaled oxygen flow rate 10 L/min Marie Vaschak DO Work Phone: [facility] 05-10-2024 11:10-0400 Diastolic blood pressure 68 mm[Hg] DO Marie Vaschak Work Phone: [facility] 05-10-2024 11:10-0400 Heart rate 61 /min DO Marie Vaschak Work Phone: [facility] 05-10-2024 11:10-0400 Systolic blood pressure 132 mm[Hg] DO Marie Vaschak Work Phone: [facility] 05-10-2024 11:00-0400 Body height 177.8 cm DO Marie Vaschak Work Phone: [facility] 05-10-2024 11:00-0400 Body mass index (BMI) [Ratio] 21.9 kg/m2 DO Marie Vaschak Work Phone: [facility] 05-10-2024 11:00-0400 Body weight 69.39 kg DO Marie Vaschak Work Phone: [facility] 05-10-2024 11:00-0400 Respiratory rate 18 /min DO Marie Vaschak Work Phone: [facility] 05-10-2024 11:00-0400 SaO2% (BldA) [Mass fraction] 98 % DO Marie Vaschak Work Phone: [facility] 04-26-2024 14:14-0400 Diastolic blood pressure 60 mm[Hg] DO Marie Vaschak Work Phone: [facility] 04-26-2024 14:14-0400 Systolic blood pressure 142 mm[Hg] DO Marie Vaschak Work Phone: [facility] 04-26-2024 13:23-0400 Body height 177.8 cm DO Marie Vaschak Work Phone: [facility] 04-26-2024 13:23-0400 Body mass index (BMI) [Ratio] 22.2 kg/m2 DO Marie Vaschak Work Phone: [facility] 04-26-2024 13:23-0400 Body weight 70.3 kg DO Marie Vaschak Work Phone: [facility] 04-26-2024 13:23-0400 Heart rate 56 /min DO Marie Vaschak Work Phone: [facility] 04-26-2024 13:23-0400 Respiratory rate 18 /min DO Marie Vaschak Work Phone: [facility] 04-26-2024 13:23-0400 SaO2% (BldA) [Mass fraction] 94 % DO Marie Vaschak Work Phone: [facility] 04-26-2024 10:24-0400 Diastolic blood pressure 70 mm[Hg] DO Marie Vaschak Work Phone: [facility] 04-26-2024 10:24-0400 Heart rate 55 /min DO Marie Vaschak Work Phone: [facility] 04-26-2024 10:24-0400 Respiratory rate 12 /min DO Marie Vaschak Work Phone: [facility] 04-26-2024 10:24-0400 SaO2% (BldA) [Mass fraction] 97 % DO Marie Vaschak Work Phone: [facility] 04-26-2024 10:24-0400 Systolic blood pressure 149 mm[Hg] DO Marie Vaschak Work Phone: [facility] 04-24-2024 15:59-0400 Diastolic blood pressure 50 mm[Hg] Anatoly Cally THREAD CHECKER Work Phone: [facility] 04-24-2024 15:59-0400 Heart rate 50 /min Staciaerong Cally THREAD CHECKER Work Phone: [facility] 04-24-2024 15:59-0400 SaO2% (BldA) [Mass fraction] 90 % Anatoly Cally THREAD CHECKER Work Phone: [facility] 04-24-2024 15:59-0400 Systolic blood pressure 110 mm[Hg] Anatoly Cally THREAD CHECKER Work Phone: [facility] 04-17-2024 10:52-0400 Diastolic blood pressure 50 mm[Hg] Marie Yunk DO Work Phone: [facility] 04-17-2024 10:52-0400 Heart rate 52 /min Marie Jamak DO Work Phone: [facility] 04-17-2024 10:52-0400 SaO2% (BldA) [Mass fraction] 94 % Marie Vaschak DO Work Phone: [facility] 04-17-2024 10:52-0400 Systolic blood pressure 90 mm[Hg] Marie Vaschak DO Work Phone: [facility] 04-17-2024 10:50-0400 Body height 177.8 cm Marie Jamak DO Work Phone: [facility] 04-17-2024 10:50-0400 Body mass index (BMI) [Ratio] 20.81 kg/m2 Marie Vaschak DO Work Phone: [facility] 04-17-2024 10:50-0400 Body weight 65.77 kg Mraie Vaschak DO Work Phone: [facility] 03-27-2024 11:09-0400 Body height 177.8 cm DO Marie Jamak Work Phone: [facility] 03-27-2024 11:09-0400 Body mass index (BMI) [Ratio] 20.9 kg/m2 DO Marie Vaschak Work Phone: [facility] 03-27-2024 11:09-0400 Body weight 66.22 kg DO Marie Vaschak Work Phone: [facility] 03-27-2024 11:09-0400 Diastolic blood pressure 56 mm[Hg] DO Marie Vaschak Work Phone: [facility] 03-27-2024 11:09-0400 Heart rate 61 /min DO Marie Vaschak Work Phone: [facility] 03-27-2024 11:09-0400 Respiratory rate 18 /min DO Marie Vaschak Work Phone: [facility] 03-27-2024 11:09-0400 SaO2% (BldA) [Mass fraction] 97 % DO Marie Vaschak Work Phone: [facility] 03-27-2024 11:09-0400 Systolic blood pressure 102 mm[Hg] DO Marie Vaschak Work Phone: [facility] 03-15-2024 11:08-0400 Diastolic blood pressure 58 mm[Hg] DO Marie Vaschak Work Phone: [facility] 03-15-2024 11:08-0400 Heart rate 59 /min DO Marie Vaschak Work Phone: [facility] 03-15-2024 11:08-0400 Systolic blood pressure 110 mm[Hg] DO Marie Vaschak Work Phone: [facility] 03-15-2024 11:07-0400 Respiratory rate 18 /min DO Marie Vaschak Work Phone: [facility] 03-15-2024 11:06-0400 Body height 177.8 cm DO Marie Vaschak Work Phone: [facility] 03-15-2024 11:06-0400 Body mass index (BMI) [Ratio] 21.5 kg/m2 DO Marie Vaschak Work Phone: [facility] 03-15-2024 11:06-0400 Body weight 68.03 kg DO Marie Vaschak Work Phone: [facility] 03-15-2024 11:06-0400 SaO2% (BldA) [Mass fraction] 95 % DO Marie Vaschak Work Phone: [facility] 03-10-2024 11:01-0400 Diastolic blood pressure 48 mm[Hg] DO Marie Vaschak Work Phone: [facility] 03-10-2024 11:01-0400 Heart rate 45 /min DO Marie Vaschak Work Phone: [facility] 03-10-2024 11:01-0400 Systolic blood pressure 108 mm[Hg] DO Marie Vaschak Work Phone: [facility] 03-08-2024 11:24-0400 Diastolic blood pressure 55 mm[Hg] DO Marie Vaschak Work Phone: [facility] 03-08-2024 11:24-0400 Heart rate 54 /min DO Marie Vaschak Work Phone: [facility] 03-08-2024 11:24-0400 Systolic blood pressure 107 mm[Hg] DO Marie Vaschak Work Phone: [facility] 03-01-2024 12:36-0400 Respiratory rate 18 /min DO Marie Vaschak Work Phone: [facility] 03-01-2024 12:36-0400 SaO2% (BldA) [Mass fraction] 97 % DO Marie Vaschak Work Phone: [facility] 02-29-2024 13:29-0400 Diastolic blood pressure 50 mm[Hg] DO Marie Vaschak Work Phone: [facility] 02-29-2024 13:29-0400 Heart rate 52 /min DO Marie Vaschak Work Phone: [facility] 02-29-2024 13:29-0400 Systolic blood pressure 96 mm[Hg] DO Marie Vaschak Work Phone: [facility] 02-29-2024 13:25-0400 Respiratory rate 18 /min DO Marie Vaschak Work Phone: [facility] 02-29-2024 13:24-0400 Body height 177.8 cm DO Marie Vaschak Work Phone: [facility] 02-29-2024 13:24-0400 Body mass index (BMI) [Ratio] 21.4 kg/m2 DO Marie Vaschak Work Phone: [facility] 02-29-2024 13:24-0400 Body weight 67.58 kg DO Marie Xavichak Work Phone: [facility] 02-29-2024 13:24-0400 SaO2% (BldA) [Mass fraction] 99 % DO Marei Xavichak Work Phone: [facility] 02-15-2024 10:12-0400 Diastolic blood pressure 40 mm[Hg] DO Marie Vaschak Work Phone: [facility] 02-15-2024 10:12-0400 Heart rate 48 /min DO Marie Xavichak Work Phone: [facility] 02-15-2024 10:12-0400 Systolic blood pressure 88 mm[Hg] DO Marie Vaschak Work Phone: [facility] 02-15-2024 10:11-0400 Body height 177.8 cm DO Marie Xavichak Work Phone: [facility] 02-15-2024 10:11-0400 Body mass index (BMI) [Ratio] 21.5 kg/m2 DO Marie Vaschak Work Phone: [facility] 02-15-2024 10:11-0400 Body weight 68.03 kg DO Marie Vaschak Work Phone: [facility] 02-15-2024 10:11-0400 Respiratory rate 18 /min DO Marie Vaschak Work Phone: [facility] 02-15-2024 10:11-0400 SaO2% (BldA) [Mass fraction] 97 % DO Marie Vaschak Work Phone: [facility] 02-08-2024 11:29-0400 Diastolic blood pressure 54 mm[Hg] DO Marie Vaschak Work Phone: [facility] 02-08-2024 11:29-0400 Heart rate 45 /min DO Marie Vaschak Work Phone: [facility] 02-08-2024 11:29-0400 Respiratory rate 16 /min DO Marie Vaschak Work Phone: [facility] 02-08-2024 11:29-0400 SaO2% (BldA) [Mass fraction] 98 % DO Marie Vaschak Work Phone: [facility] 02-08-2024 11:29-0400 Systolic blood pressure 124 mm[Hg] DO Marie Vaschak Work Phone: [facility] 02-08-2024 07:59-0400 Body temperature 97.8 [degF] DO Marie Vaschak Work Phone: [facility] 02-08-2024 05:37-0400 Body weight 63.9 kg DO Marie Vaschak Work Phone: [facility] 02-06-2024 15:56-0400 Body height 177.8 cm DO Marie Vaschak Work Phone: [facility] 02-06-2024 00:57-0400 Diastolic blood pressure 64 mm[Hg] DO Marie Vaschak Work Phone: [facility] 02-06-2024 00:57-0400 Heart rate 58 /min DO Marie Vaschak Work Phone: [facility] 02-06-2024 00:57-0400 Respiratory rate 18 /min DO Marie Vaschak Work Phone: [facility] 02-06-2024 00:57-0400 SaO2% (BldA) [Mass fraction] 100 % DO Marie Vaschak Work Phone: [facility] 02-06-2024 00:57-0400 Systolic blood pressure 130 mm[Hg] DO Marie Vaschak Work Phone: [facility] 02-05-2024 19:13-0400 Body height 179.07 cm DO Marie Vaschak Work Phone: [facility] 02-05-2024 19:13-0400 Body temperature 97.6 [degF] DO Marie Vaschak Work Phone: [facility] 02-05-2024 19:13-0400 Body weight 65.5 kg DO Marie Vaschak Work Phone: [facility] 11-11-2023 13:50-0400 Diastolic blood pressure 72 mm[Hg] DO Marie Vaschak Work Phone: [facility] 11-11-2023 13:50-0400 Heart rate 56 /min DO Marie Vaschak Work Phone: [facility] 11-11-2023 13:50-0400 Respiratory rate 16 /min DO Marie Vaschak Work Phone: [facility] 11-11-2023 13:50-0400 SaO2% (BldA) [Mass fraction] 97 % DO Marie Vaschak Work Phone: [facility] 11-11-2023 13:50-0400 Systolic blood pressure 125 mm[Hg] DO Marie Vaschak Work Phone: [facility] 11-11-2023 12:20-0400 Body height 177.8 cm DO Marie Vaschak Work Phone: [facility] 11-11-2023 12:20-0400 Body weight 65.77 kg DO Marie Vaschak Work Phone: [facility] 10-28-2023 14:51-0400 Body height 177.8 cm DO Marie Vaschak Work Phone: [facility] 10-28-2023 14:51-0400 Body mass index (BMI) [Ratio] 20.9 kg/m2 DO Marie Vaschak Work Phone: [facility] 10-28-2023 14:51-0400 Body weight 66.22 kg DO Marie Xavichak Work Phone: [facility] 10-28-2023 14:51-0400 Diastolic blood pressure 70 mm[Hg] DO Marie Vaschak Work Phone: [facility] 10-28-2023 14:51-0400 Heart rate 64 /min DO Marie Vaschak Work Phone: [facility] 10-28-2023 14:51-0400 Respiratory rate 18 /min DO Marie Xavichak Work Phone: [facility] 10-28-2023 14:51-0400 SaO2% (BldA) [Mass fraction] 96 % DO Marie Vaschak Work Phone: [facility] 10-28-2023 14:51-0400 Systolic blood pressure 144 mm[Hg] DO Marie Vaschak Work Phone: [facility] 10-21-2023 08:36-0400 Body height 177.8 cm DO Marie Vaschak Work Phone: [facility] 10-21-2023 08:36-0400 Body mass index (BMI) [Ratio] 21.2 kg/m2 DO Marie Vaschak Work Phone: [facility] 10-21-2023 08:36-0400 Body weight 67.13 kg DO Marie Vaschak Work Phone: [facility] 09-28-2023 10:26-0400 Body height 177.8 cm DO Marie Vaschak Work Phone: [facility] 09-28-2023 10:26-0400 Body mass index (BMI) [Ratio] 21.2 kg/m2 DO Marie Vaschak Work Phone: [facility] 09-28-2023 10:26-0400 Body weight 67.13 kg DO Marie Vaschak Work Phone: [facility] 09-27-2023 15:40-0400 Diastolic blood pressure 74 mm[Hg] DO Marie Vaschak Work Phone: [facility] 09-27-2023 15:40-0400 Heart rate 72 /min DO Marie Vaschak Work Phone: [facility] 09-27-2023 15:40-0400 Systolic blood pressure 140 mm[Hg] DO Marie Vaschak Work Phone: [facility] 09-06-2023 12:00-0500 Body temperature 98.4 [degF] DO Marie Vaschak Work Phone: [facility] 09-06-2023 12:00-0500 Diastolic blood pressure 62 mm[Hg] DO Marie Vaschak Work Phone: [facility] 09-06-2023 12:00-0500 Heart rate 67 /min DO Marie Vaschak Work Phone: [facility] 09-06-2023 12:00-0500 Respiratory rate 16 /min DO Marie Vaschak Work Phone: [facility] 09-06-2023 12:00-0500 SaO2% (BldA) [Mass fraction] 97 % DO Marie Vaschak Work Phone: [facility] 09-06-2023 12:00-0500 Systolic blood pressure 108 mm[Hg] DO Marie Vaschak Work Phone: [facility] 09-06-2023 06:00-0500 Body weight 68.2 kg DO Marie Xavichak Work Phone: [facility] 09-01-2023 15:42-0500 Body height 177.8 cm DO Marie Xavichak Work Phone: [facility] 08-16-2023 14:07-0500 Body height 177.8 cm Sammy Wolff [employer] Work Phone: [facility] 08-16-2023 14:07-0500 Body mass index (BMI) [Ratio] 20.09 kg/m2 Sammy Wolff [employer] Work Phone: [facility] 08-16-2023 14:07-0500 Body weight 63.5 kg Sammy Wolff [employer] Work Phone: [facility] 08-16-2023 14:07-0500 Diastolic blood pressure 80 mm[Hg] Sammy Wolff [employer] Work Phone: [facility] 08-16-2023 14:07-0500 Heart rate 72 /min Sammy Wolff [employer] Work Phone: [facility] 08-16-2023 14:07-0500 Systolic blood pressure 134 mm[Hg] Sammy Wolff [employer] Work Phone: [facility] 07-16-2023 22:45-0500 Diastolic blood pressure 95 mm[Hg] DO Marie Xavichak Work Phone: [facility] 07-16-2023 22:45-0500 Heart rate 69 /min DO Marie Xavichak Work Phone: [facility] 07-16-2023 22:45-0500 Respiratory rate 16 /min DO Marie Xavichak Work Phone: [facility] 07-16-2023 22:45-0500 SaO2% (BldA) [Mass fraction] 98 % DO Marie Castro Work Phone: [facility] 07-16-2023 22:45-0500 Systolic blood pressure 164 mm[Hg] DO Marie Yunk Work Phone: [facility] 07-16-2023 13:24-0500 Body height 177.8 cm DO Marie Castro Work Phone: [facility] 07-16-2023 13:24-0500 Body temperature 96.7 [degF] DO Marie Castro Work Phone: [facility] 07-16-2023 13:24-0500 Body weight 63.95 kg DO Marie Yunk Work Phone: [facility] 05-25-2023 13:41-0500 Diastolic blood pressure 88 mm[Hg] Govind Davis DO Work Phone: [facility] 05-25-2023 13:41-0500 Systolic blood pressure 136 mm[Hg] Govind Davis DO Work Phone: [facility] 05-25-2023 13:37-0500 Body height 177.8 cm Govind Davis DO Work Phone: [facility] 05-25-2023 13:37-0500 Body mass index (BMI) [Ratio] 19.51 kg/m2 Govind Davis DO Work Phone: [facility] 05-25-2023 13:37-0500 Body weight 61.69 kg Govind Davis DO Work Phone: [facility] 05-25-2023 13:37-0500 Heart rate 70 /min Govind Davis DO Work Phone: [facility] 05-08-2023 10:33-0400 Diastolic blood pressure 85 mm[Hg] DO Marie Xavichak Work Phone: [facility] 05-08-2023 10:33-0400 Heart rate 97 /min DO Marie Vaschak Work Phone: [facility] 05-08-2023 10:33-0400 Respiratory rate 18 /min DO Marie Vaschak Work Phone: [facility] 05-08-2023 10:33-0400 Systolic blood pressure 156 mm[Hg] DO Marie Vaschak Work Phone: [facility] 05-08-2023 05:00-0400 Body temperature 98.8 [degF] DO Marie Vaschak Work Phone: [facility] 05-08-2023 05:00-0400 SaO2% (BldA) [Mass fraction] 97 % DO Marie Vaschak Work Phone: [facility] 05-04-2023 11:00-0400 Body height 177.8 cm DO Marie Xavichak Work Phone: [facility] 05-03-2023 16:44-0400 Body weight 66.4 kg DO Marie Vaschak Work Phone: [facility] 05-03-2023 11:48-0400 Body temperature 98.1 [degF] DO Marie Xavichak Work Phone: [facility] 05-03-2023 11:48-0400 Diastolic blood pressure 77 mm[Hg] DO Marie Vaschak Work Phone: [facility] 05-03-2023 11:48-0400 Heart rate 55 /min DO Marie Vaschak Work Phone: [facility] 05-03-2023 11:48-0400 Respiratory rate 18 /min DO Marie Vaschak Work Phone: [facility] 05-03-2023 11:48-0400 SaO2% (BldA) [Mass fraction] 99 % DO Marie Vaschak Work Phone: [facility] 05-03-2023 11:48-0400 Systolic blood pressure 146 mm[Hg] DO Marie Jamak Work Phone: [facility] 05-03-2023 05:40-0400 Body weight 67.6 kg DO Marie Jamak Work Phone: [facility] 05-02-2023 00:00-0400 Inhaled oxygen flow rate 6 L/min DO Marie Ileana Work Phone: [facility] 04-30-2023 15:31-0400 Body mass index (BMI) [Ratio] 18.8 kg/m2 DO Marie Castro Work Phone: [facility] 04-30-2023 15:25-0400 Body height 180.34 cm DO Marie Castro Work Phone: [facility] 04-28-2023 16:32-0400 Heart rate 63 /min DO Marie Castro Work Phone: [facility] 04-28-2023 16:24-0400 Diastolic blood pressure 83 mm[Hg] DO Marie Castro Work Phone: [facility] 04-28-2023 16:24-0400 Respiratory rate 18 /min DO Marie Ileana Work Phone: [facility] 04-28-2023 16:24-0400 SaO2% (BldA) [Mass fraction] 98 % DO Marie Ileana Work Phone: [facility] 04-28-2023 16:24-0400 Systolic blood pressure 167 mm[Hg] DO Marie Jamak Work Phone: [facility] 04-28-2023 13:34-0400 Body temperature 97.2 [degF] DO Marie Jamak Work Phone: [facility] 04-28-2023 12:19-0400 Body height 180.34 cm DO Marie Jamak Work Phone: [facility] 04-28-2023 12:19-0400 Body weight 64.41 kg DO Marie Castro Work Phone: [facility] 01-07-2022 09:35-0400 Diastolic blood pressure 95 mm[Hg] Gray Ross MD Work Phone: [employer] 01-07-2022 09:35-0400 Systolic blood pressure 160 mm[Hg] Gray Ross MD Work Phone: [employer] 01-07-2022 07:46-0400 Body temperature 97.81 [degF] Gray Ross MD Work Phone: [employer] 01-07-2022 07:46-0400 Heart rate 64 /min Gray Ross MD Work Phone: [employer] 01-07-2022 07:46-0400 Respiratory rate 15 /min Gray Ross MD Work Phone: [employer] 01-07-2022 07:46-0400 SaO2% (BldA) [Mass fraction] 98 % Gray Ross MD Work Phone: [employer] 01-03-2022 04:00-0400 Body height 177.8 cm Gray Ross MD Work Phone: [employer] 01-03-2022 04:00-0400 Body mass index (BMI) [Ratio] 20.81 kg/m2 Gray Ross MD Work Phone: [employer] 01-03-2022 04:00-0400 Body weight 65.8 kg Gray Ross MD Work Phone: [employer] Encounters Encounter Date Encounter Type Care Provider Facility Start: 03-28-2025 End: 03-28-2025 Follow-up encounter Erick Peguero LPN Endocrinology Start: 03-27-2025 End: 03-27-2025 ambulatory Marie Castro DO Work Phone: [facility] Work Phone: Start: 03-27-2025 End: 03-27-2025 Patient encounter procedure Anat Perez MD -[facility] Work Phone: Start: 03-16-2025 End: 03-16-2025 Orders Only Ayana Zavala APRN.CNP Work Phone: Endocrinology Start: 03-02-2025 End: 03-02-2025 ambulatory Marie Castro Facility:[facility] Start: 03-02-2025 [facility] Start: 02-13-2025 End: 02-13-2025 Clinisync Result Encounter Generic External Data Provider [facility] External Department Unsolicited Start: 02-13-2025 End: 02-13-2025 Clinisync Result Encounter Generic External Data Provider [facility] External Department Unsolicited Start: 02-05-2025 End: 02-06-2025 ambulatory Anatoly Anne APRN.CNP Work Phone: Rheumatology Comment on above: Blood test Start: 02-05-2025 End: 02-05-2025 Telephone encounter Ayana Zavala APRN.CNP Work Phone: Endocrinology Start: 01-16-2025 End: 01-16-2025 ambulatory MARIE CASTRO Not Available Start: 01-08-2025 End: 01-08-2025 Orders Only Marie Castro DO Work Phone: [facility] External [facility] Unsolicited Start: 01-02-2025 End: 01-02-2025 Office outpatient visit 25 minutes Marie Castro DO Work Phone: [facility] Comment on above: Pancreatic insuffici ency (HCC) (Primary Dx); Pleurisy Start: 01-02-2025 End: 01-02-2025 ambulatory MARIE CASTRO Not Available Start: 01-01-2025 End: 01-01-2025 ambulatory Ayana Zavala APRN.CNP Work Phone: Endocrinology Comment on above: Rx for sensors Start: 12-26-2024 End: 12-27-2024 ambulatory Ayana Zavala APRN.CNP Work Phone: Endocrinology Comment on above: Sensors Start: 12-19-2024 End: 12-25-2024 Telephone encounter Ayana Souleymane MEEK Work Phone: Endocrinology Comment on above: Refill Request Start: 12-12-2024 End: 12-12-2024 Refill Ayana Zavala APRN.CNP Work Phone: Endocrinology Comment on above: Refill Request Start: 11-30-2024 End: 11-30-2024 ambulatory Marie Castro Facility:[facility] Start: 11-30-2024 Non-patient / Non-visit [facility] Start: 11-01-2024 End: 11-01-2024 ambulatory Ayana Zavala APRN.CNP Work Phone: Endocrinology Comment on above: Medication change Start: 10-26-2024 End: 10-26-2024 Patient encounter procedure Ayana Zavala APRN.CNP Work Phone: Endocrinology Comment on above: 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, 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); 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); Insulin pump status; Insulin pump titration Start: 10-26-2024 End: 10-26-2024 ambulatory MARIE CASTRO Facility:[facility] Start: 10-23-2024 End: 10-23-2024 Clinisync Result Encounter Generic External Data Provider [facility] External Department Unsolicited Start: 10-23-2024 End: 10-23-2024 Clinisync Result Encounter Generic External Data Provider [facility] External Department Unsolicited Start: 10-13-2024 End: 10-13-2024 Telephone encounter Gaye Mata RN [facility] Comment on above: Omnipod/Dexcom issue s Start: 10-13-2024 End: 10-13-2024 ambulatory Marie Castro DO Work Phone: [facility] Work Phone: Start: 10-13-2024 End: 10-13-2024 Patient encounter procedure Marie Castro DO Work Phone: [facility] Work Phone: Start: 10-11-2024 End: 10-11-2024 Telephone encounter Ayana Zavala APRN.CNP Work Phone: Endocrinology Comment on above: Insurance Authorizat ion (insulin pump cart,auto,BT,G6/7 (OMNIPOD 5 G6-G7 PODS, GEN 5,) crtg) Omnipod 5/Dexcom G7 issues Start: 10-10-2024 End: 10-10-2024 Telephone encounter Gaye Mata RN [facility] Comment on above: Dexcom G7 CGM supply issues Start: 10-04-2024 End: 10-11-2024 Refill Ayana Zavala APRN.CNP Work Phone: Endocrinology Comment on above: Med Change Request Start: 10-04-2024 End: 10-04-2024 Telephone encounter Gaye Mata RN [facility] Comment on above: Omnipod 5/Dexcom hel p Dexcom G7 CGM supply issues Start: 09-27-2024 End: 09-28-2024 ambulatory Ayana Zavala APRN.CNP Work Phone: Endocrinology Comment on above: Glucose Start: 09-27-2024 End: 09-27-2024 Telephone encounter Gaye Mata RN [facility] Comment on above: Omnipod 5 pump follo w up call Start: 09-26-2024 End: 09-26-2024 Follow-up encounter Ayana Zavala APRN.CNP Work Phone: Endocrinology Start: 09-26-2024 End: 09-26-2024 Telephone encounter Ayana Zavala APRN.CNP Work Phone: Endocrinology Start: 09-25-2024 End: 09-25-2024 ambulatory AYANA ZAVALA Facility:[facility] Start: 09-25-2024 End: 09-25-2024 Patient encounter procedure Ayana Zavala APRN.CNP Work Phone: Endocrinology Comment on above: 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, 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); 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); Insulin pump status; Insulin pump titration Start: 09-22-2024 End: 09-22-2024 Orders Only Ayana Zavala APRN.[employer] Work Phone: Endocrinology Comment on above: 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, 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) Omnipod 5 pump issue Start: 09-21-2024 End: 09-21-2024 Telephone encounter Gaye Mata RN [facility] Comment on above: Omipod 5 upgrade fol low up call Start: 09-13-2024 End: 09-13-2024 Clinisync Result Encounter Generic External Data Provider [facility] External Department Unsolicited Start: 09-13-2024 End: 09-13-2024 Clinisync Result Encounter Generic External Data Provider [facility] External Department Unsolicited Start: 09-04-2024 End: 09-04-2024 ambulatory MARIE CASTRO Facility:[facility] Start: 09-04-2024 End: 09-04-2024 Nursing evaluation of patient and report Gaye Mata RN [facility] Comment on above: 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, 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) Start: 08-31-2024 End: 08-31-2024 Telephone encounter Gaye Mata RN [facility] Comment on above: Appointment Start: 08-31-2024 End: 08-31-2024 ambulatory Marie Castro DO Work Phone: [facility] Work Phone: Start: 08-31-2024 End: 08-31-2024 Patient encounter procedure Marie Castro DO Work Phone[facility] Work Phone: Start: 08-30-2024 End: 08-30-2024 Office outpatient visit 40 minutes Marie Castro DO Work Phone: [facility] Comment on above: Abdominal wall absce ss; Acquired total absence of pancreas; Insulin pump in place; Lower respiratory infection; ICD (implantable cardioverter-defibrillator) in place; H/O splenectomy; 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); Chronic systolic CHF (congestive heart failure), NYHA class 2 (CMS/HCC); Nonrheumatic mitral valve regurgitation; Pancreatic insufficiency (CMS/HCC) Start: 08-30-2024 End: 08-30-2024 ambulatory MARIE CASTRO Not Available Start: 08-29-2024 End: 08-29-2024 ambulatory Marie Castro Facility:[facility] Start: 08-29-2024 Non-patient / Non-visit Marie Castro DO Work Phone: [facility] Start: 08-15-2024 End: 08-15-2024 Telephone encounter Ayana Zavala APRN.[employer] Work Phone: Endocrinology Comment on above: Forms ([facility] [employer] [facility] Physcians order) Start: 08-09-2024 End: 08-09-2024 Telephone encounter Ayana Zavala APRN.CNP Work Phone: Endocrinology Comment on above: Forms ([employer] [facility] note) Start: 07-25-2024 End: 07-25-2024 ambulatory MARIE CSATRO Facility:[facility] Start: 07-25-2024 End: 07-25-2024 Nursing evaluation of patient and report Gaye Mata RN [facility] Comment on above: 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, 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) Start: 07-21-2024 End: 07-21-2024 Clinisync Result Encounter Generic External Data Provider [facility] External Department Unsolicited Start: 07-21-2024 End: 07-21-2024 Clinisync Result Encounter Generic External Data Provider [facility] External Department Unsolicited Start: 07-21-2024 End: 07-21-2024 Telephone encounter Gaye Mata RN Diabetic [facility] Comment on above: Appointment Start: 07-20-2024 End: 07-20-2024 ambulatory MARIE CASTRO Not Available Start: 07-20-2024 End: 07-20-2024 Transitional care manage srvc 7 day discharge Yomi Chong THREAD CHECKER Work Phone: [facility] Comment on above: Chronic systolic CHF (congestive heart failure), NYHA class 2 (CMS/HCC) (Primary Dx); Pancreatic insufficiency (CMS/HCC); History of bleeding peptic ulcer; Coronary arteriosclerosis (CMS/HCC); 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); Orthostatic hypotension; Bronchitis Start: 07-17-2024 Non-patient / Non-visit Marie Castro DO Work Phone: [facility] Work Phone: Start: 07-16-2024 End: 07-17-2024 ambulatory Indra Guillory Facility:[facility] Start: 07-16-2024 End: 07-17-2024 Evaluation and management of inpatient Marie Castro DO Work Phone: [facility] [place] [facility] Work Phone: Start: 07-16-2024 End: 07-17-2024 observation encounter Marie Castro DO Work Phone: [facility] Work Phone: Start: 07-13-2024 End: 07-21-2024 E-mail encounter from caregiver Gaye Mata RN [facility] Start: 07-13-2024 End: 07-13-2024 Telephone encounter Gaye Mata RN Diabetic [facility] Comment on above: Omnipod DASH to 5 pu mp upgrade Start: 07-13-2024 End: 07-21-2024 ambulatory Gaye Mata RN Diabetic [facility] Start: 07-13-2024 End: 07-13-2024 Postop follow up visit related to original px Stephanie Sheridan DO Work Phone: [facility] Comment on above: Abdominal wall absce ss (Primary Dx) Start: 07-06-2024 End: 07-06-2024 Telephone encounter Ayana Zavala APRN.CNP Work Phone: Endocrinology Start: 07-06-2024 End: 07-06-2024 ambulatory YUERONG CALLY Facility:[facility] Start: 07-06-2024 End: 07-06-2024 Patient encounter procedure Ayana Zavala APRN.CNP Work Phone: Endocrinology Comment on above: 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, 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); 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); Insulin pump status Start: 07-03-2024 End: 07-03-2024 ambulatory BETO RUSSO V Not Available Start: 07-03-2024 End: 07-03-2024 Postop follow up visit related to original px Beto Russo MD Work Phone: [facility] Comment on above: Abdominal wall absce ss (Primary Dx) Start: 06-20-2024 End: 06-21-2024 External Result Encounter Stephanie H Itdonny DO Work Phone: [facility] External Department Unsolicited Start: 06-20-2024 End: 06-21-2024 External Result Encounter Stephanie H Itzkowitz DO Work Phone: [facility] External Department Unsolicited Start: 06-20-2024 Non-patient / Non-visit Marie Yunbrody Work Phone: [facility] Start: 06-19-2024 End: 06-21-2024 Evaluation and management of inpatient Marie Ileana CURTIS Work Phone: [facility] [place] [facility] [facility] Work Phone: Start: 06-19-2024 End: 06-21-2024 ambulatory Marie Castro Facility:[facility] Start: 06-19-2024 End: 06-19-2024 Office outpatient visit 40 minutes Marie Castro DO [facility] Comment on above: Abscess of abdominal wall (Primary Dx); ICD (implantable cardioverter-defibrillator) in place; H/O splenectomy; 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); Chronic systolic CHF (congestive heart failure), NYHA class 2 (CMS/HCC); Acquired total absence of pancreas Start: 06-19-2024 End: 06-19-2024 ambulatory MARIE CASTRO Not Available Start: 06-16-2024 End: 06-18-2024 Evaluation and management of inpatient Marie Castro DO Work Phone: [facility] [place] [facility] Work Phone: Start: 05-30-2024 End: 05-30-2024 Transitional care manage srvc 7 day discharge Marie Hurleysienna DO Work Phone: [facility] Comment on above: 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 (Primary Dx); Hospital discharge follow-up; 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); Acquired total absence of pancreas; Coronary arteriosclerosis (CMS/HCC); Insulin pump in place; 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); Moderate pulmonary arterial systolic hypertension (CMS/HCC); Nonrheumatic mitral valve regurgitation; Chronic systolic CHF (congestive heart failure), NYHA class 2 (CMS/HCC) Start: 05-30-2024 End: 05-30-2024 ambulatory MARIE Westfall JAMABrody Not Available Start: 05-25-2024 Non-patient / Non-visit Marie Hurleypuabrody CURTIS Work Phone: [facility] Work Phone: Start: 05-24-2024 End: 05-25-2024 Evaluation and management of inpatient Marie Castro DO Work Phone: [facility] [place] [facility] Work Phone: Start: 05-24-2024 Non-patient / Non-visit Marie Xavisienna CURTIS Work Phone: [facility] Start: 05-16-2024 End: 05-16-2024 Patient encounter procedure DO Marie Castro Work Phone: [facility] Work Phone: Start: 05-16-2024 End: 05-16-2024 ambulatory DO Marie Castro Work Phone: [facility] Work Phone: Start: 05-16-2024 Encounter for preprocedural laboratory examination Asadjenni Vancegilmascar [facility] Start: 05-10-2024 End: 05-10-2024 ambulatory DO Marie Castro Work Phone: [facility] Work Phone: Start: 05-10-2024 End: 05-10-2024 Patient encounter procedure DO Marie Castro Work Phone: [facility] Work Phone: Start: 04-26-2024 End: 04-26-2024 ambulatory DO Marie Castro Work Phone: [facility] Work Phone: Start: 04-26-2024 End: 04-26-2024 Patient encounter procedure DO Marie Castro Work Phone: [facility] Work Phone: Start: 04-26-2024 End: 04-26-2024 Patient encounter procedure DO Marie Ileana Work Phone: [facility] Start: 04-26-2024 End: 04-26-2024 ambulatory DO Marie Castro Work Phone: [facility] Work Phone: Start: 04-24-2024 End: 04-24-2024 Office outpatient visit 25 minutes Anatoly Anne NP Work Phone: [facility] Comment on above: Pancreatic insuffici ency (CMS/HCC) (Primary Dx); Coronary arteriosclerosis (CMS/HCC); 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 (CMS/HCC); 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); H pylori ulcer Start: 04-24-2024 End: 04-24-2024 ambulatory MARIE CASTRO Not Available Start: 04-17-2024 End: 04-17-2024 Office outpatient visit 40 minutes Marie Castro DO Work Phone: [facility] Comment on above: Bronchitis (Primary Dx); 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 (CMS/HCC); Generalized anxiety disorder (CMS/HCC); Need for immunization against influenza; Acquired total absence of pancreas; Benign prostatic hyperplasia with urinary frequency; 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); H/O splenectomy; H pylori ulcer; 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); Insulin pump in place; Pancreatic insufficiency ([facility]/HCC); Duodenal ulcer; Medicare annual wellness visit, subsequent; ACP (advance care planning); Bradycardia; Orthostatic hypotension; Acute on chronic systolic congestive heart failure ([facility]/HCC) Start: 04-17-2024 End: 04-17-2024 Patient encounter procedure Marie Castro DO Work Phone: [facility] Start: 04-17-2024 End: 04-17-2024 ambulatory MARIE CASTRO Not Available Start: 04-05-2024 End: 04-05-2024 ambulatory PATRICK BEARD [facility] Start: 03-27-2024 End: 03-27-2024 ambulatory DO Marie Castro Work Phone: [facility] Work Phone: Start: 03-27-2024 End: 03-27-2024 Patient encounter procedure DO Marie Castro Work Phone: [facility] Cardiology Work Phone: Start: 03-15-2024 End: 03-15-2024 ambulatory DO Marie Castro Work Phone: [facility] Work Phone: Start: 03-15-2024 End: 03-15-2024 Patient encounter procedure DO Marie Castro Work Phone: [facility] Work Phone: Start: 03-10-2024 End: 03-10-2024 ambulatory DO Marie Castro Work Phone: [facility] Work Phone: Start: 03-10-2024 End: 03-10-2024 Discharged Recurring DO Marie Castro Work Phone: [facility]-Infusion Therapy - O/P Work Phone: Start: 03-09-2024 End: 03-09-2024 Patient encounter procedure DO Marie Castro Work Phone: [facility]-Electrodiagnostics Work Phone: Start: 03-09-2024 End: 03-09-2024 ambulatory DO Marie Castro Work Phone: [facility] Work Phone: Start: 03-09-2024 Non-patient / Non-visit DO Andrei Castro Work Phone: [facility] Work Phone: Start: 03-08-2024 Registered Recurring DO Marie Castro Work Phone: [facility]-Infusion Therapy - O/P Work Phone: Start: 02-29-2024 End: 02-29-2024 ambulatory DO Marie Yunk Work Phone: [facility] Work Phone: Start: 02-29-2024 End: 02-29-2024 Patient encounter procedure DO Marie Yunk Work Phone: [facility] Work Phone: Start: 02-28-2024 End: 02-28-2024 ambulatory MARIE CASTRO Not Available Start: 02-16-2024 End: 02-16-2024 ambulatory DO Marie Yunk Work Phone: [facility] Work Phone: Start: 02-16-2024 End: 02-16-2024 Patient encounter procedure DO Marie Castro Work Phone: [facility]-Lab [facility] [place] Work Phone: Start: 02-15-2024 End: 02-15-2024 ambulatory DO Marie Castro Work Phone: [facility] Work Phone: Start: 02-15-2024 End: 02-15-2024 Patient encounter procedure DO Marie Castro Work Phone: [facility] Cardiology Work Phone: Start: 02-14-2024 End: 02-14-2024 Patient encounter procedure DO Marie Castro Work Phone: [facility] [place] Work Phone: Start: 02-14-2024 End: 02-14-2024 ambulatory DO Marie Castro Work Phone: [facility] Work Phone: Start: 02-11-2024 End: 02-11-2024 ambulatory DO Marie Castro Work Phone: [facility] Work Phone: Start: 02-11-2024 End: 02-11-2024 Patient encounter procedure DO Marie Castro Work Phone: [facility] [place] Work Phone: Start: 02-10-2024 End: 02-10-2024 ambulatory YOMI CHONG Not Available Start: 02-06-2024 Non-patient / Non-visit DO Andrei marsha Castro Work Phone: [facility] Work Phone: Start: 02-06-2024 Non-patient / Non-visit DO Andrei Yunk Work Phone: [facility] Gastroenterology Work Phone: Start: 02-05-2024 End: 02-08-2024 Evaluation and management of inpatient DO Marie Castro Work Phone: [facility] [place] [facility] Work Phone: Start: 01-24-2024 End: 01-24-2024 ambulatory MAGDALENE Hallman [facility] Start: 01-21-2024 End: 01-24-2024 Evaluation and management of inpatient [facility] Start: 11-11-2023 Non-patient / Non-visit DO Andrei Yunk Work Phone: [facility] Work Phone: Start: 11-11-2023 End: 11-11-2023 Admission to same day surgery center DO Marie Castro Work Phone: [facility]-Digestive Health Work Phone: Start: 11-04-2023 End: 11-04-2023 ambulatory None Provider Facility:[facility] Start: 10-28-2023 End: 10-28-2023 ambulatory DO Marie Castro Work Phone: [facility] Work Phone: Start: 10-28-2023 End: 10-28-2023 Patient encounter procedure DO Marie Castro Work Phone: [facility] Work Phone: Start: 10-21-2023 End: 10-21-2023 ambulatory DO Marie Yunk Work Phone: [facility] Work Phone: Start: 10-21-2023 End: 10-21-2023 Patient encounter procedure DO Marie Jamak Work Phone: [facility] Work Phone: Start: 10-13-2023 End: 10-13-2023 ambulatory None Provider Facility:[facility] Start: 09-28-2023 End: 09-28-2023 ambulatory DO Marie Yunk Work Phone: [facility] Work Phone: Start: 09-28-2023 End: 09-28-2023 Patient encounter procedure DO Marie Yunk Work Phone: [facility] Neurosurgery Work Phone: Start: 09-27-2023 End: 09-27-2023 ambulatory DO Marie Yunk Work Phone: [facility] Work Phone: Start: 09-27-2023 End: 09-27-2023 Discharged Recurring DO Marie Castro Work Phone: [facility]-Infusion Therapy - O/P Work Phone: Start: 09-24-2023 End: 09-24-2023 ambulatory DO Marie Yunk Work Phone: [facility] Work Phone: Start: 09-24-2023 End: 09-24-2023 Patient encounter procedure DO Marie Jamak Work Phone: [facility]-XRay [facility] [place] Work Phone: Start: 09-06-2023 Non-patient / Non-visit DO Andrei ert Vaschak Work Phone: [facility] Work Phone: Start: 08-31-2023 Non-patient / Non-visit DO Andrei ert Vaschak Work Phone: [facility] Work Phone: Start: 08-31-2023 End: 09-06-2023 Evaluation and management of inpatient DO Marie Castro Work Phone: [facility] [place] [facility] Work Phone: Start: 08-16-2023 End: 08-16-2023 ambulatory SAMMY WOLFF [facility] [employer] Other Start: 08-16-2023 End: 08-16-2023 Office outpatient visit 15 minutes Sammy Wolff SILK SPOOLER-TUBE BENDER HAND Work Phone: [facility] Comment on above: Cardiomyopathy, isch emic (Primary Dx); ASHD (arteriosclerotic heart disease); BMI 20.0-20.9, adult; Orthopnea Start: 08-16-2023 Telephone encounter Anat Gallagher [facility] Start: 07-27-2023 End: 07-27-2023 ambulatory DO Marie Castro Work Phone: [facility] Work Phone: Start: 07-27-2023 End: 07-27-2023 Patient encounter procedure DO Marie Castro Work Phone: [facility] Start: 07-16-2023 End: 07-16-2023 Admission to same day surgery center DO Marie Castro Work Phone: [facility]-Assessment Technician Work Phone: Start: 07-16-2023 End: 07-16-2023 ambulatory DO Marie Yunk Work Phone: [facility] Work Phone: Start: 06-23-2023 End: 06-23-2023 ambulatory SAMMY Skinner [facility] Amb[facility] Start: 06-22-2023 End: 06-22-2023 ambulatory Ashwini Conrad Other [facility] [employer] Other Start: 06-22-2023 Telephone encounter [facility] Start: 06-11-2023 End: 06-11-2023 ambulatory DO Marie Castro Work Phone: [facility] Work Phone: Start: 06-11-2023 End: 06-11-2023 Patient encounter procedure DO Marie Castro Work Phone: [facility] Start: 06-02-2023 End: 06-09-2023 ambulatory UNKNOWN PROVIDER Facility:[facility] Start: 05-26-2023 Telephone encounter [facility] Start: 05-26-2023 End: 05-26-2023 ambulatory DO Marie Castro Work Phone: [facility] Work Phone: Start: 05-26-2023 End: 05-26-2023 Patient encounter procedure DO Marie Castro Work Phone: [facility] Start: 05-25-2023 End: 05-25-2023 ambulatory [facility] Ambulatory Start: 05-25-2023 End: 05-25-2023 Office consultation new/estab patient 60 min [facility] DO Work Phone: [facility] Comment on above: NSTEMI (non-ST eleva robert myocardial infarction) ([facility]/HCC) (Primary Dx); Abnormal stress test; ASHD (arteriosclerotic heart disease); Essential hypertension; Diabetes mellitus type II, non insulin dependent (CMS/HCC); Closed fracture of right hip, initial encounter ([facility]) Start: 05-21-2023 End: 05-21-2023 ambulatory Ashwini Conrad Other [employer] Other Start: 05-21-2023 Postop follow up vis it related to original px Ashwini Conrad [facility] Start: 05-21-2023 End: 05-21-2023 Patient encounter procedure DO Marie Castro Work Phone: [facility] Start: 05-03-2023 End: 05-08-2023 Evaluation and management of inpatient DO Marie Castro Work Phone: [facility] [place] [facility] Work Phone: Start: 04-28-2023 End: 05-03-2023 Evaluation and management of inpatient DO Marie Castro Work Phone: [facility] Work Phone: Start: 04-23-2023 End: 04-24-2023 ambulatory None Provider Facility:[facility] Start: 01-20-2023 End: 08-30-2023 Patient encounter procedure Anatoly Cally THREAD CHECKER Work Phone: [facility] Start: 06-05-2022 End: 06-06-[address] MARIE CASTRO Facility:[facility] Start: 05-18-2022 Encounter for other specified special examinations DR MARIE CASTRO [facility] Start: 05-14-2022 End: 05-15-[address] MARIE CASTRO Facility:[facility] Start: 05-14-2022 End: 05-15-2022 Encounter for other specified special examinations DR MARIE CASTRO Facility:[facility] Start: 01-02-2022 End: 01-07-2022 Evaluation and management of inpatient DELON Westfall [facility] Start: 01-02-2022 End: 01-07-2022 Evaluation and management of inpatient Gray Ross MD Work Phone: [facility] 4B Stepdown Comment on above: Acute gastric ulcer with perforation (HCC) (Primary Dx); Gastric perforation (HCC) Start: 01-02-2022 End: 01-02-[address] SALVADOR NARANJO Facility:[facility] Procedures Date Procedure Procedure Detail Performing Clinician Start: 02-13-2025 GLUTAMIC AC DECARBOXYLASE AB Ayana Mar kenneth SILK SPOOLER.TUBE BENDER HAND Work Phone: Start: 02-13-2025 MLR HEMOGLOBIN A1C Generic External Data Provider Start: 02-13-2025 TBH GLUCOSE BLOOD Generic External Data Provider Start: 01-08-2025 Creatinine blood Marie Castro DO Work Phone: Start: 10-26-2024 Hemoglobin A1c/Hemoglobin.total in Blood Ayana Zavala APRN.TUBE BENDER HAND Work Phone: Start: 10-23-2024 ALL BASIC METABOLIC PANEL Generic Brine Room Laborer al Data Provider Start: 10-23-2024 ALL PRO BNP Generic External Data Provider Start: 09-13-2024 ALL BASIC METABOLIC PANEL Generic Brine Room Laborer al Data Provider Start: 09-13-2024 ALL PRO BNP Generic External Data Provider Start: 07-21-2024 ALL BASIC METABOLIC PANEL Generic Brine Room Laborer al Data Provider Start: 07-17-2024 Respiratory Panel (PCR) Marie Hurleysienna D O Work Phone: Start: 07-16-2024 CT angiography of thorax Marie Castro DO Work Phone: Start: 07-16-2024 Plain chest X-ray Marie Castro DO Work Phone: Start: 07-06-2024 Gluc bld gluc mntr dev cleared fda spec home use Ayana Zavala APRN.TUBE BENDER HAND Work Phone: Start: 07-06-2024 [employer] [facility] Provider Start: 07-06-2024 Hemoglobin A1c/Hemoglobin.total in Blood Ayana Zavala APRN.TUBE B[employer]ER [employer] Work Phone: Start: 06-20-2024 Debridement Marie Castro DO Work Phone: Start: 06-20-2024 Aerobic microbial culture Marie Castro DO Work Phone: Start: 06-20-2024 Anaerobic microbial culture Marie melendez DO Work Phone: Start: 06-20-2024 Gram stain microscopy Marie Castro DO Work Phone: Start: 06-20-2024 AEROBIC CULTURE Stephanie Sherdian DO Work Phone: Start: 06-20-2024 ANAEROBIC CULTURE Stephanie Sheridan DO Work Phone: Start: 06-16-2024 Aerobic microbial culture Marie Castro DO Work Phone: Start: 06-16-2024 Bacteria identified in Blood by Culture Marie Castro DO Work Phone: Start: 06-16-2024 CT of abdomen with contrast Marie melendez DO Work Phone: Start: 05-25-2024 Plain chest X-ray Marie Castro DO Work Phone: Start: 05-24-2024 Implantation of cardiac pacemaker Marie Castro DO Work Phone: Start: 04-17-2024 Hemoglobin glycosylated a1c Marie patel DO Work Phone: Start: 02-07-2024 Esophagogastroduodenoscopy DO Marie patel Work Phone: Start: 02-05-2024 CT cervical spine without contrast DO January nathalia Ileana Work Phone: Start: 02-05-2024 CT of head without contrast DO Marie campbell Work Phone: Start: 02-05-2024 Plain chest X-ray DO Marie Castro Work Phone: Start: 02-05-2024 Stool Occult Blood (DORON) DO Marie melendez Work Phone: Start: 11-11-2023 Esophagogastroduodenoscopy DO Marie patel Work Phone: Start: 09-24-2023 X-ray of cervical spine DO Marie skinner Work Phone: Start: 09-01-2023 X-ray of cervical spine DO Marie skinner Work Phone: Start: 08-16-2023 FOLLOW UP IN CARDIOLOGY GOVIND DAVIS Start: 07-27-2023 Plain X-ray of right hip DO Marie melendez Work Phone: Start: 07-16-2023 CL PCI CHIEF PHYSICAL THERAPIST Ea Add LAD DO Marie Castro Work Phone: Start: 07-16-2023 CL Stent 1st Vessel LAD BEKAH DO Marie campbell Work Phone: Start: 06-23-2023 FOLLOW UP IN CARDIOLOGY GOVIND DAVIS Start: 06-11-2023 Plain X-ray of right femur DO Marie patel Work Phone: Start: 05-25-2023 ECG 12-LEAD GOVIND DAVIS Start: 05-25-2023 Ecg routine ecg w/least 12 lds w/i&r Govind Davis DO Work Phone: Start: 05-21-2023 Plain X-ray of right hip DO Marie melendez Work Phone: Start: 04-30-2023 End: 04-30-2023 Plain X-ray of right hip DO Marie melendez Work Phone: Start: 04-30-2023 Open reduction of fracture with internal fixation DO Marie Castro Work Phone: Start: 04-30-2023 Plain chest X-ray DO Marie Castro Work Phone: Start: 04-30-2023 CL LHC & COR Angio DO Marie Castro Work Phone: Start: 04-29-2023 Open reduction of fracture with internal fixation DO Marie Castro Work Phone: Start: 04-28-2023 Plain chest X-ray DO Marie Castro Work Phone: Start: 04-28-2023 Plain X-ray of right femur DO Marie patel Work Phone: Start: 04-28-2023 Plain X-ray of right hip DO Marie melendez Work Phone: Start: 01-07-2022 Assay of magnesium Breana Johnson MD Work Phone: Start: 01-07-2022 BASIC METABOLIC PANEL W/ REFLEX TO MG FOR LOW K Bertin T Dayami DO Work Phone: Start: 01-07-2022 IMMATURE PLATELET FRACTION Breana Hallman Work Phone: Start: 01-06-2022 Assay of phosphorus inorganic Bertin Stock DO Work Phone: Start: 01-06-2022 BASIC METABOLIC PANEL W/ REFLEX TO MG FOR LOW K Bertin Stock DO Work Phone: Start: 01-06-2022 IMMATURE PLATELET FRACTION Breana Hallman Work Phone: Start: 01-05-2022 Radiologic exam upr gi trc single contrast study Breana Johnson MD Work Phone: Start: 01-05-2022 Assay of magnesium Kings Francis MD Work Phone: Start: 01-05-2022 BASIC METABOLIC PANEL W/ REFLEX TO MG FOR LOW K Kings Francis MD Work Phone: Start: 01-05-2022 IMMATURE PLATELET FRACTION Breana Hallman Work Phone: Start: 01-05-2022 Assay of magnesium Kings Francis MD Work Phone: Start: 01-05-2022 BASIC METABOLIC PANEL W/ REFLEX TO MG FOR LOW K Kings Francis MD Work Phone: Start: 01-04-2022 Assay of phosphorus inorganic Kings wang MD Work Phone: Start: 01-04-2022 BASIC METABOLIC PANEL W/ REFLEX TO MG FOR LOW K Kings Francis MD Work Phone: Start: 01-04-2022 Assay of magnesium Kings Francis MD Work Phone: Start: 01-04-2022 BASIC METABOLIC PANEL W/ REFLEX TO MG FOR LOW K Kings Francis MD Work Phone: Start: 01-04-2022 Assay of phosphorus inorganic Kings wang MD Work Phone: Start: 01-04-2022 BASIC METABOLIC PANEL W/ REFLEX TO MG FOR LOW K Kings Francis MD Work Phone: Start: 01-04-2022 End: 01-04-2022 Assay of phosphorus inorganic Kings wang MD Work Phone: Start: 01-04-2022 BASIC METABOLIC PANEL W/ REFLEX TO MG FOR LOW K Kings Francis MD Work Phone: Start: 01-04-2022 Glucose blood reagent strip Delon Hampton Start: 01-04-2022 End: 01-04-2022 Assay of phosphorus inorganic Kings wang MD Work Phone: Start: 01-04-2022 BASIC METABOLIC PANEL W/ REFLEX TO MG FOR LOW K Kings Francis MD Work Phone: Start: 01-03-2022 End: 01-03-2022 Assay of phosphorus inorganic Kings wang MD Work Phone: Start: 01-03-2022 BASIC METABOLIC PANEL W/ REFLEX TO MG FOR LOW K Kings Francis MD Work Phone: Start: 01-03-2022 End: 01-03-2022 Glucose blood reagent strip Delon Hampton Start: 01-03-2022 Glucose blood reagent strip Delon Hampton Start: 01-03-2022 End: 01-03-2022 Assay of phosphorus inorganic Kings wang MD Work Phone: Start: 01-03-2022 BASIC METABOLIC PANEL W/ REFLEX TO MG FOR LOW K Kings Francis MD Work Phone: Start: 01-03-2022 End: 01-03-2022 Glucose blood reagent strip Delon Hampton Start: 01-03-2022 Glucose blood reagent strip Delon Hampton Start: 01-03-2022 End: 01-03-2022 Assay of phosphorus inorganic Kings wang MD Work Phone: Start: 01-03-2022 BASIC METABOLIC PANEL W/ REFLEX TO MG FOR LOW K Kings Francis MD Work Phone: Start: 01-03-2022 End: 01-03-2022 Assay of phosphorus inorganic Kings wang MD Work Phone: Start: 01-03-2022 BASIC METABOLIC PANEL W/ REFLEX TO MG FOR LOW K Kings Francis MD Work Phone: Start: 01-03-2022 End: 01-03-2022 Glucose blood reagent strip Delon denson DO Start: 01-03-2022 End: 01-03-2022 Assay of phosphorus inorganic Kings wang MD Work Phone: Start: 01-03-2022 BASIC METABOLIC PANEL W/ REFLEX TO MG FOR LOW K Kings Francis MD Work Phone: Start: 01-03-2022 End: 01-03-2022 Glucose blood reagent strip Delon denson DO Start: 01-02-2022 Glucose blood reagent strip Delon denson DO Start: 01-02-2022 End: 01-02-2022 Glucose blood reagent strip Delon denson DO Start: 01-02-2022 Radiologic exam abdomen 1 view Emi Ki m DO Start: 01-02-2022 Culture bacterial quanttative colony count urine Tristan Bueno DO Work Phone: Start: 01-02-2022 End: 01-02-2022 Glucose blood reagent strip Delon denson DO Start: 01-02-2022 End: 01-02-2022 BOWEL RESECTION HEMICOLECTOMY LAPAROSCOPIC ROBOTIC Tristan Bueno DO Work Phone: Start: 01-02-2022 End: 01-02-2022 EGD DIAGNOSTIC ONLY Tristan Bueno DO Work Phone: Start: 01-02-2022 Basic metabolic panel calcium total Kim Johnson MD Work Phone: Start: 01-02-2022 Hepatic function panel Breana Johnson MD Work Phone: Start: 01-02-2022 LACTATE, SEPSIS Breana Johnson MD Work Phone: Start: 01-02-2022 Glucose blood reagent strip Gray Lan MD Work Phone: Start: 12-30-2019 H/O splenectomy H/O splenectomy Yumiguel Cally THREAD CHECKER Work Phone: H/O splenectomy H/O splenectomy Marie J Ileana DO Work Phone: H/O splenectomy H/O splenectomy Marie Castro DO Work Phone: H/O splenectomy H/O splenectomy Marie Castro DO Work Phone: Plan of Treatment Date Care Activity Detail Author Start: 11-04-2033 Urine microalbumin profile DTaP,Tdap,Td Vaccine (4 - Td or Tdap) [facility] Start: 03-18-2028 DTaP/Tdap/Td vaccine (3 - Td or Tdap) DTaP/Tdap/Td vaccine (3 - Td or Tdap) [facility] Start: 03-18-2028 DTaP/Tdap/Td Vaccines (3 - Td or Tdap) DTaP/Tdap/Td Vaccines (3 - Td or Tdap) [facility] Start: 07-06-2027 Diabetes Screening Diabetes Screening [facility] Start: 09-25-2025 Hepatitis B screening Urine Albumin:Creatinine Ratio [facility] Start: 09-25-2025 Hepatitis B surface antibody level LDL Cholesterol [facility] Start: 09-25-2025 Urine screening for protein Diabetes: Urine Protein Screening [facility] Start: 04-17-2025 Medicare Annual Wellness (AWV) Medicare Annual Wellness (AWV) [facility] Start: 04-09-2025 End: 04-09-2025 Patient encounter procedure 04/09/2025 2:00 PM EDT Office Visit Endocrinology [address] [place] [address] Ayana Zavala APRN.TUBE BENDER HAND [address] [place] [address] *R/S from 01/25 Endocrinology Comment on above: *R/S from 01/25 Start: 03-27-2025 Patient referral [facility] Work Phone: Start: 03-12-2025 Influenza vaccination Influenza Vaccine (#1) [facility] Start: 02-06-2025 End: 05-08-2025 Glutamate decarboxylase 65 Ab [Units/volume] in Serum GLUTAMIC AC DECARBOXYLASE AB Lab Routine 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, with long-term current use of insulin (HCC) Expected: 02/06/2025, Expires: 05/08/2025 [facility] Comment on above: Expected: 02/06/2025, Expires: Start: 02-06-2025 End: 05-08-2025 Hemoglobin A1c in Blood HEMOGLOBIN A1C Lab Routine 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, with long-term current use of insulin (HCC) Expected: 02/06/2025, Expires: 05/08/2025 [facility] Work Phone: Comment on above: Expected: 02/06/2025, Expires: Start: 02-05-2025 End: 05-07-2025 C peptide [Mass/volume] in Serum or Plasma C-PEPTIDE BLD Lab Routine 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, with long-term current use of insulin (HCC) Expected: 02/05/2025, Expires: 05/07/2025 [facility] Comment on above: Expected: 02/05/2025, Expires: Start: 02-05-2025 End: 05-07-2025 Fasting glucose [Mass/volume] in Serum or Plasma GLUCOSE, FASTING Lab Routine 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, with long-term current use of insulin (HCC) Expected: 02/05/2025, Expires: 05/07/2025 [facility] Work Phone: Comment on above: Expected: 02/05/2025, Expires: Start: 01-25-2025 Hemoglobin A1c measurement [facility] Start: 01-25-2025 End: 01-25-2025 Patient encounter procedure 01/25/2025 2:00 PM EDT Office Visit Endocrinology [address] [place] [address] Ayana Zavala, SILK SPOOLER.TUBE BENDER HAND [address] [place] [address] 2 month follow up DM Endocrinology Comment on above: 2 month follow up DM Start: 01-16-2025 End: 01-16-2025 Professional / ancillary services management 01/16/2025 11:30 AM EDT Ancillary Procedure [facility] CT [address] [place] [id number] [facility] [address] Start: 01-03-2025 End: 01-03-2026 Creatinine [Mass/volume] in Serum or Plasma Creatinine, Serum Lab Routine Pleurisy Expected: 01/03/2025 (Approximate), Expires: 01/03/2026 [facility] Comment on above: Expected: 01/03/2025 (Approximate), Expi res: 01/03/2026 Start: 01-03-2025 End: 04-05-2025 CTA Chest vessels WO and W contrast IV CT angiogram chest Imaging Routine Pleurisy Expected: 01/03/2025 (Approximate), Expires: 04/05/2025 [facility] Work Phone: Comment on above: Expected: 01/03/2025 (Approximate), Expi res: 04/05/2025 Start: 11-23-2024 Glaucoma screening Diabetes: Retinopathy Screening [facility] Start: 11-13-2024 Covid-19 Vaccine ( season) Covid-19 Vaccine () [facility] Start: 10-26-2024 End: 10-26-2024 Patient encounter procedure 10/26/2024 12:15 PM EDT Office Visit Endocrinology [address] [facility] [place] [address] Ayana Zavala, SILK SPOOLER.TUBE BENDER HAND [address] [facility] [place] [address] Return in about 4 weeks (around 10/23/2024). Endocrinology Comment on above: Return in about 4 weeks (around ). Start: 10-04-2024 Hemoglobin A1c measurement [facility] Start: 09-25-2024 End: 09-25-2024 Patient encounter procedure 09/25/2024 2:30 PM EDT Office Visit Endocrinology [address] [place] [address] Ayana Zavala, SILK SPOOLER.TUBE BENDER HAND [address] [facility] [place] [address] Return in about 6 weeks (around 08/17/2024). Endocrinology Comment on above: Return in about 6 weeks (around 08/17/2024 ). Start: 09-25-2024 End: 12-25-2024 Comprehensive metabolic 2000 panel - Serum or Plasma [facility] Work Phone: Comment on above: Expected: 09/25/2024, Expires: Start: 09-25-2024 End: 12-25-2024 LIPID PANEL, NONFASTING [facility] Comment on above: Expected: 09/25/2024, Expires: Start: 09-25-2024 End: 12-25-2024 Microalbumin/Creatinine [Mass Ratio] in Urine [facility] Comment on above: Expected: 09/25/2024, Expires: Start: 09-08-2024 Urine screening for protein Diabetes: Urine Protein Screening [facility] Start: 09-04-2024 End: 09-04-2024 Nursing evaluation of patient and report 09/04/2024 1:00 PM EST Nurse Visit Diabetic [facility] [address] [place] [address] Gaye Mata, KARIN Omnipod DASH to Omnipod 5 upgrade with Dexcom G7 training [facility] Comment on above: Omnipod DASH to Omnipod 5 upgrade with D excom G7 training Start: 08-29-2024 End: 08-29-2024 Patient encounter procedure 08/29/2024 1:30 PM EST Office Visit Endocrinology [address] [place] [address] Ayana Zavala APRN.TUBE BENDER HAND [address] [facility] [place] [address] Return in about 6 weeks (around 08/17/2024). Endocrinology Comment on above: Return in about 6 weeks (around 08/17/2024 ). Start: 08-18-2024 End: 08-18-2024 Patient encounter procedure 08/18/2024 8:30 AM EST Office Visit Endocrinology [address] [facility] [place] [address] Ayana Zavala APRN.TUBE BENDER HAND [address] [facility] [place] [address] Return in about 6 weeks (around 08/17/2024). Endocrinology Comment on above: Return in about 6 weeks (around 08/17/2024 ). Start: 08-02-2024 End: 08-02-2024 Patient encounter procedure 08/02/2024 10:00 AM EST Office Visit [facility] [address] [place] [phone] Marie Castro DO [address] [place] [address] [facility] Start: 07-25-2024 End: 07-25-2024 Nursing evaluation of patient and report 07/25/2024 1:00 PM EST Nurse Visit Diabetic [facility] [address] [place] [address] Gaye Mata, RN Omnipod 5 upgrade from DASH with Dexcom G6 CGM. Needs carb counting. Coming from [place], [place] with Diabetic [facility] Comment on above: Omnipod 5 upgrade from [employer] with Dexcom G6 CGM. Needs carb counting. Coming from [place], [place] with Start: 07-20-2024 End: 07-24-2024 Basic metabolic 1998 panel - Serum or Plasma Basic metabolic panel Lab Routine Chronic systolic CHF (congestive heart failure), NYHA class 2 (CMS/HCC) Expected: 07/20/2024 (Approximate), Expires: 07/24/2024 [facility] Work Phone: Comment on above: Expected: 07/20/2024 (Approximate), Expi res: 07/24/2024 Start: 07-18-2024 Hemoglobin A1c measurement Diabetes: Hemoglobin A1C [facility] Start: 07-17-2024 End: 07-17-2024 [facility] Start: 07-17-2024 Referral to spa manager [facility] Start: 07-17-2024 Respiratory pathogens DNA and RNA panel - Nasopharynx by ANASTASIA with non-probe detection [facility] Start: 07-17-2024 Physical therapy procedure [facility] Start: 07-17-2024 Referral to occupational therapist [facility] Start: 07-17-2024 [facility] Start: 07-16-2024 Hospital admission [facility] Start: 07-13-2024 End: 07-13-2024 Patient encounter procedure 07/13/2024 10:45 AM EST Office Visit [facility] [address] [place] [phone] Stephanie Sheridan DO [address] [place] [address] [facility] Start: 07-12-2024 Advance Directive Discussion Advance Directive Discussion [facility] Start: 07-03-2024 End: 07-03-2024 Patient encounter procedure 07/03/2024 9:00 AM EST Office Visit [facility] [address] [place] [phone] Beto Russo MD [address] [place] [address] [facility] Start: 06-21-2024 [facility] Start: 06-19-2024 Referral to general surgeon [facility] Start: 06-19-2024 Hospital admission [facility] Start: 06-19-2024 End: 06-19-2024 Patient encounter procedure 06/19/2024 3:00 PM EST Office Visit [facility] [address] [place] [phone] Marie Castro DO [address] [place] [address] [facility] Start: 06-18-2024 End: 06-18-2024 [facility] Start: 06-17-2024 [facility] Start: 06-16-2024 Hospital admission [facility] Start: 06-16-2024 Referral to infectious diseases physician [facility] Start: 06-16-2024 Drainage of Abdomen Subcutaneous Tissue and Fascia, Open Approach Drainage of Abdomen Subcutaneous Tissue and Fascia, Open Approach [facility] Start: 05-25-2024 [facility] Start: 05-25-2024 Hospital admission [facility] Start: 05-24-2024 [facility] Start: 05-24-2024 [facility] Start: 05-24-2024 Insertion of Defibrillator Generator into Chest Subcutaneous Tissue and Fascia, Open Approach Insertion of Defibrillator Generator into Chest Subcutaneous Tissue and Fascia, Open Approach [facility] Start: 05-24-2024 Insertion of Defibrillator Lead into Right Atrium, Percutaneous Approach Insertion of Defibrillator Lead into Right Atrium, Percutaneous Approach [facility] Start: 05-24-2024 Insertion of Defibrillator Lead into Right Ventricle, Percutaneous Approach Insertion of Defibrillator Lead into Right Ventricle, Percutaneous Approach [facility] Start: 02-15-2024 [facility] Start: 02-08-2024 [facility] Start: 02-06-2024 Referral to structural rigger [facility] Start: 02-05-2024 Hospital admission [facility] Start: 02-05-2024 CT cervical spine without contrast CT cervical spine wo [facility] Start: 02-05-2024 CT Cervical spine WO contrast [facility] Start: 02-05-2024 CT of head without contrast CT head/brain wo con [facility] Start: 02-05-2024 CT Unspecified body region WO contrast [facility] Start: 02-05-2024 Plain chest X-ray XR chest 1V portable [facility] Start: 02-05-2024 XR Chest Single view [facility] Start: 02-05-2024 Control Bleeding in Gastrointestinal Tract, Via Natural or Artificial Opening Endoscopic Control Bleeding in Gastrointestinal Tract, Via Natural or Artificial Opening Endoscopic [facility] Start: 11-11-2023 [facility] Start: 09-06-2023 [facility] Start: 09-06-2023 Referral to rehabilitation physician [facility] Start: 08-31-2023 Hospital admission [facility] Start: 08-31-2023 Consultation [facility] Start: 08-31-2023 Referral to structural rigger [facility] Start: 08-31-2023 Control Bleeding in Gastrointestinal Tract, Via Natural or Artificial Opening Endoscopic Control Bleeding in Gastrointestinal Tract, Via Natural or Artificial Opening Endoscopic [facility] Start: 08-31-2023 Excision of Esophagus, Via Natural or Artificial Opening Endoscopic, Diagnostic Excision of Esophagus, Via Natural or Artificial Opening Endoscopic, Diagnostic [facility] Start: 08-31-2023 Excision of Stomach, Pylorus, Via Natural or Artificial Opening Endoscopic, Diagnostic Excision of Stomach, Pylorus, Via Natural or Artificial Opening Endoscopic, Diagnostic [facility] Start: 08-16-2023 End: 08-16-2024 Basic metabolic 2000 panel - Serum or Plasma Basic Metabolic Panel Lab Routine Cardiomyopathy, ischemic Expected: 08/16/2023 (Approximate), Expires: 08/16/2024 [facility] Work Phone: Comment on above: Expected: 08/16/2023 (Approximate), Expi res: 08/16/2024 Start: 08-16-2023 End: 08-16-2024 Natriuretic peptide B [Mass/volume] in Blood B-Type Natriuretic Peptide Lab Routine Cardiomyopathy, ischemic Orthopnea Expected: 08/16/2023 (Approximate), Expires: 08/16/2024 [facility] Service Area Work Phone: Comment on above: Expected: 08/16/2023 (Approximate), Expi res: 08/16/2024 Start: 07-16-2023 End: 07-16-2023 [facility] Start: 07-13-2023 COVID-19 Vaccine (3 - Moderna series) COVID-19 Vaccine (3 - Moderna series) [facility] Start: 07-12-2023 Advance Directive Discussion Advance Directive Discussion [facility] Start: 06-23-2023 End: 06-23-2023 Patient encounter procedure 06/23/2023 2:00 PM EST Office Visit [facility] [address] [facility] [address] [place] [address] Sammy Wolff, SILK SPOOLER-TUBE BENDER HAND [address] [facility] [address] [place] [address] (work) [facility] Start: 06-05-2023 Urine screening for protein Diabetes: Urine Protein Screening [facility] Start: 05-07-2023 [facility] Start: 05-04-2023 Administration of prophylactic treatment [facility] Start: 05-03-2023 Hospital admission [facility] Start: 05-03-2023 Referral to clinical traveling engineer [facility] Start: 05-03-2023 [facility] Start: 05-03-2023 Referral to rehabilitation physician [facility] Start: 05-02-2023 Blood chemistry [facility] Start: 05-02-2023 [facility] Start: 05-01-2023 Blood chemistry [facility] Start: 05-01-2023 [facility] Start: 04-30-2023 Referral to Sexual Health Physician [facility] Start: 04-30-2023 Blood chemistry [facility] Start: 04-30-2023 End: 04-30-2023 [facility] Start: 04-29-2023 Blood chemistry [facility] Start: 04-29-2023 Lipid panel [facility] Start: 04-29-2023 [facility] Start: 04-28-2023 [facility] Start: 04-28-2023 Hospital admission [facility] Start: 04-28-2023 [facility] Start: 04-28-2023 Hospital admission [facility] Start: 04-28-2023 Consultation [facility] Start: 04-28-2023 Referral to spa manager [facility] Start: 04-28-2023 End: 04-28-2023 [facility] Start: 04-28-2023 Fluoroscopy of Left Heart using Low Osmolar Contrast Fluoroscopy of Left Heart using Low Osmolar Contrast [facility] Start: 04-28-2023 Fluoroscopy of Multiple Coronary Arteries using Low Osmolar Contrast Fluoroscopy of Multiple Coronary Arteries using Low Osmolar Contrast [facility] Start: 04-28-2023 Insertion of Intramedullary Internal Fixation Device into Right Upper Femur, Percutaneous Approach Insertion of Intramedullary Internal Fixation Device into Right Upper Femur, Percutaneous Approach [facility] Start: 04-28-2023 Measurement of Cardiac Sampling and Pressure, Left Heart, Percutaneous Approach Measurement of Cardiac Sampling and Pressure, Left Heart, Percutaneous Approach [facility] Start: 04-04-2022 Hemoglobin A1c measurement Diabetes: Hemoglobin A1C [facility] Start: 06-30-2021 Shingles vaccine (2 of [...] Increased Risk Bexsero 2-dose series) [facility] Start: 03-12-2002 Medicare Annual Wellness Visit Medicare Annual Wellness Visit [facility] Start: 1956 Urine screening for protein Diabetes: Urine Protein Screening [facility] Start: 1955 Anxiety Screening Anxiety Screening [facility] Start: 1955 Depression Screening Depression Screening [facility] Start: 1955 Hepatitis B surface antibody level LDL Cholesterol [facility] Start: 1949 Depression Screen Depression Screen [facility] Start: 1947 Diabetic foot examination [facility] Start: 1947 Glaucoma screening [facility] Start: 1947 Hepatitis B screening Urine Albumin:Creatinine Ratio [facility] Start: 1947 Meningococcal B Vaccine (1 of 4 - Increased Risk) Meningococcal B Vaccine (1 of 4 - Increased Risk) [facility] Start: 1939 Meningococcal Vaccine (1 - Risk 2-dose series) Meningococcal Vaccine (1 - Risk 2-dose series) [facility] Start: 06-22-1938 HIB Vaccines (1 of 1 - Risk 1-dose series) HIB Vaccines (1 of 1 - Risk 1-dose series) [facility] Start: 1937 Annual Wellness Visit (AWV) Annual Wellness Visit (AWV) [facility] Start: 1937 Lipid panel Lipid Panel [facility] Start: 1937 Medicare Annual Wellness Visit Medicare Annual Wellness Visit (AWV) [facility] Start: 1937 Screening for osteoporosis Bone Density Scan [facility] AEROBIC CULTURE AEROBIC CULTURE Lab Routine 06/20/2024 10:18 AM [employer] Work Phone: ANAEROBIC CULTURE ANAEROBIC CULT URE Lab Routine 06/20/2024 10:18 AM [employer] Basic Metabolic Pane l w/ Reflex to MG Basic Metabolic Panel w/ Reflex to MG Lab Routine Daily until discontinued starting 01/06/2022, 2 completed [employer] Work Phone: Comment on above: Daily until discontinued starting 2021, 2 completed CBC W Auto Different ial panel - Blood CBC with Auto Differential Lab Routine Daily until discontinued starting 01/03/2022, 5 completed [employer] Work Phone: Comment on above: Daily until discontinued starting 2021, 5 completed Comprehensive metabo lic 2000 panel - Serum or Plasma [facility] Glucose [Mass/volume ] in Serum or Plasma POCT Glucose Point of Care Testing STAT As Needed until discontinued starting 01/02/2022 [employer] Work Phone: Comment on above: As Needed until discontinued starting Glucose [Mass/volume ] in Serum or Plasma POCT glucose Point of Care Testing Routine Now Then Every 4hr until discontinued starting 01/03/2022 [employer] Work Phone: Comment on above: Now Then Every 4hr until discontinued st arting 01/03/2022 Glucose [Mass/volume ] in Serum or Plasma GLUCOSE, BLOOD (POC) Lab Routine 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, with long-term current use of insulin (HCC) Ordered: 07/06/2024 [facility] Work Phone: Comment on above: Ordered: 07/06/2024 Glucose measurement estimated from glycated hemoglobin [facility] Helicobacter pylori Ag [Presence] in Stool by Immunoassay [facility] Oxygen therapy [Mini mum Data Set] Initiate Oxygen Therapy Protocol Respiratory Care Routine As Needed until discontinued starting 01/02/2022 [employer] Work Phone: Comment on above: As Needed until discontinued starting Patient Education [facility] Work Phone: Patient referral [facility] Work Phone: Phosphate [Mass/volu me] in Serum or Plasma Phosphorus Lab Routine Daily until discontinued starting 01/06/2022, 2 completed [employer] Work Phone: Comment on above: Daily until discontinued starting 2021, 2 completed Spirometry panel Incentive carolyn metry Respiratory Care Routine Every 2hr while awake until discontinued starting 01/03/2022 [employer] Work Phone: Comment on above: Every 2hr while awake until discontinued starting 01/03/2022 US Heart Transthoracic [facility] US Heart Transthoracic [facility] XR Cervical spine 3 Views [facility] Immunizations Immunization Date Immunization Notes Care Provider [facility] 04-17-2024 Seasonal trivalent influenza vaccine, adjuvanted, preservative free Yuerong Cally THREAD CHECKER Work Phone: [facility] 04-17-2024 influenza virus vacc ine, unspecified formulation Marie Castro DO Work Phone: [facility] 05-19-2023 Influenza, Seasonal, Quadrivalent, Adjuvanted Yuerong Cally THREAD CHECKER Work Phone: [facility] 05-18-2023 COVID-19 (PFIZER) 12Y and older DO Marie Castro Work Phone: [facility] 05-18-2023 Moderna SARS-CoV-2 Vaccination Yuerong Cally THREAD CHECKER Work Phone: [facility] 05-18-2023 RSV, recombinant, protein subunit RSVpreF, adjuvant reconstitu, 120mcg/0.5mL, PF (Arexvy) Yuerong Cally THREAD CHECKER Work Phone: [facility] 05-18-2023 zoster vaccine recombinant Yuerong Cally THREAD CHECKER Work Phone: [facility] 05-26-2022 COVID-19 mRNA Bivale nt Booster (Pfizer) DO Marie Hurleysienna Work Phone: [facility] 05-26-2022 Moderna Bivalent Reynoso ster Vaccination Yuerong Cally THREAD CHECKER Work Phone: [facility] 04-29-2022 influenza, high dose seasonal, preservative-free Yuerong Cally THREAD CHECKER Work Phone: [facility] 05-05-2021 zoster vaccine, live Yuerong Cally THREAD CHECKER Work Phone: [facility] 05-02-2021 zoster vaccine recombinant Yuerong Cally THREAD CHECKER Work Phone: [facility] 04-29-2021 influenza, high dose seasonal, preservative-free Yuerong Cally THREAD CHECKER Work Phone: [facility] 08-22-2020 Moderna SARS-CoV-2 Vaccination Yuerong Cally THREAD CHECKER Work Phone: [facility] 07-25-2020 Moderna SARS-CoV-2 Vaccination Yuerong Cally THREAD CHECKER Work Phone: [facility] 04-24-2020 Seasonal trivalent influenza vaccine, adjuvanted, preservative free Yuerong Cally THREAD CHECKER Work Phone: [facility] 12-26-2019 pneumococcal conjuga te vaccine, 13 valent Yuerong Cally THREAD CHECKER Work Phone: [facility] 09-15-2019 meningococcal B vacc ine, recombinant, OMV, adjuvanted Marie Xavisienna DO Work Phone: [facility] 09-15-2019 meningococcal polysaccharide (groups A, C, Y and W-135) diphtheria toxoid conjugate vaccine (MCV4P) Marie [employer] DO Work Phone: [facility] 09-15-2019 pneumococcal polysaccharide vaccine, 23 valent Marie Vaschak DO Work Phone: [facility] 04-03-2019 Seasonal trivalent influenza vaccine, adjuvanted, preservative free Yuerong Cally THREAD CHECKER Work Phone: [facility] 08-18-2018 haemophilus influenz ae type b vaccine, PRP-OMP conjugate [facility] DO Work Phone: [facility] 08-18-2018 meningococcal B vacc ine, recombinant, OMV, adjuvanted Marie Mingyiank DO Work Phone: [facility] 08-18-2018 pneumococcal conjuga te vaccine, 13 valent Marie Mingyiank DO Work Phone: [facility] 2018 Seasonal trivalent influenza vaccine, adjuvanted, preservative free Yuerong Cally THREAD CHECKER Work Phone: [facility] 03-18-2018 tetanus and diphther ia toxoids, adsorbed, preservative free, for adult use (5 Lf of tetanus toxoid and 2 Lf of diphtheria toxoid) [employer] Cally THREAD CHECKER Work Phone: [facility] 03-03-2017 influenza, high dose seasonal, preservative-free Yuerong Cally THREAD CHECKER Work Phone: [facility] 12-25-2015 pneumococcal polysaccharide vaccine, 23 valent Yuerong Cally THREAD CHECKER Work Phone: [facility] 03-18-2015 tetanus toxoid, redu cristina diphtheria toxoid, and acellular pertussis vaccine, adsorbed Yuerong Cally THREAD CHECKER Work Phone: [facility] Payers Date Payer Category Payer Self-pay [id number] 2023 Unknown [id number] 2022 Private Health Insurance [facility] [id number] 2002 Medicare [id number]. [id number]. [id number] 1959 Medicare [id number] 1.2.840.742972.1.13.239. 2.7.3.464142.315 1959 Unknown [id number] 1.2.840.624893.1.13.239. 2.7.3.516475.315 1937 Unknown [id number] 2.16.840.1.469469.3.579. 2.175 1937 Unknown [id number] 2.16.840.1.573112.3.579. 2.593 1937 Unknown [id number] 2.16.840.1.961931.3.579. 2.593 1937 Unknown [id number] 2.16.840.1.842388.3.579. 2.593 1937 Unknown [id number] 2.16.840.1.485199.3.579. 2.732 1937 Unknown [id number] 2.16.840.1.894419.3.579. 2.1244 1937 Unknown [id number] 2.16.840.1.750073.3.579. 2.1244 1937 Unknown [id number] 2.16.840.1.039886.3.579. 2.1244 1937 Unknown [id number] 2.16.840.1.454798.3.579. 2.718 1937 Unknown [id number] 2.16.840.1.727284.3.579. 2. 1937 Unknown [id number] 2.16.840.1.638225.3.579. 2. 1937 Unknown [id number] 2.16.840.1.543715.3.579. 2.1285 1937 Unknown [id number] 2.16.840.1.550305.3.579. 2.1285 1937 Unknown [id number] 2.16.840.1.232616.3.579. 2.1258 1937 Unknown [id number] 2.16.840.1.572860.3.579. 2.1258 1937 Unknown [id number] 2.16.840.1.772240.3.579. 2.1258 1937 Unknown [id number] 2.16.840.1.354242.3.579. 2.1258 1937 Unknown [id number] 2.16.840.1.264701.3.579. 2.1258 1937 Unknown [id number] 2.16.840.1.898562.3.579. 2.1258 1937 Unknown [id number] 2.16.840.1.938722.3.579. 2.1258 1937 Unknown [id number] 2.16.840.1.442618.3.579. 2.1258 1937 Unknown [id number] 2.16.840.1.197938.3.579. 2.1258 1937 Unknown [id number] 2.16.840.1.250543.3.579. 2.1258 1937 Unknown [id number] 2.16.840.1.449967.3.579. 2.1259 1937 Unknown [id number] 2.16.840.1.285272.3.579. 2.1259 1937 Unknown [id number] 2.16.840.1.482605.3.579. 2.1259 1937 Unknown [id number] 2.16.840.1.765984.3.579. 2.1259 Unknown [id number] Unknown [id number] 2.16.840.1.640941.3.579. 2.531 Unknown [id number] 2.16.840.1.290128.3.579. 2.531 Unknown [id number] 2.16.840.1.286421.3.579. 2.531 Unknown [id number] 2.16.840.1.138851.3.579. 2.531 Unknown [id number] 2.16.840.1.091201.3.579. 2.531 Unknown [id number] 2.16.840.1.791757.3.579. 2.531 Unknown [id number] 2.16.840.1.095956.3.579. 2.531 Unknown [id number] 2.16.840.1.451088.3.579. 2.531 Unknown [id number] 2.16.840.1.712632.3.579. 2.531 Unknown [id number] 2.16.840.1.774720.3.579. 2.531 Unknown [id number] 2.16.840.1.320003.3.579. 2.531 Social History Date Type Detail Facility Start: 01-04-2022 End: 07-06-2024 Tobacco smoking status NHIS Ex-smoker [facility] Start: 07-12-1947 End: 08-09-2022 History of tobacco use Cigarette Smoker [facility] Work Phone: Start: 01-04-2022 End: 07-06-2024 Tobacco use and exposure Smokeless tobacco non-user [employer] Phone: Start: 01-05-2022 Alcohol intake Ex-drinker (finding) [employer] Phone: Start: 1937 Sex Assigned At Not on file [employer] Phone: Start: 12-24-2021 End: 08-16-2023 Exposure to SARS-CoV-2 (event) Not sure [employer] Start: 04-28-2023 End: 02-15-2024 Tobacco smoking status KYIS Current some day smoker [facility] Start: 1935 Sex Assigned At Male [facility] Start: 05-25-2023 End: 07-06-2024 Sex Assigned At [facility] Other Start: 05-25-2023 End: 10-26-2024 Alcohol intake Current drinker of alcohol (finding) [facility] Work Phone: Start: 05-25-2023 End: 07-06-2024 Alcohol intake [facility] Work Phone: Start: 07-12-1947 End: 08-09-2022 Tobacco smoking status NHIS Smoker (finding) [facility] How often to you hav e a drink containing alcohol? 2-4 times a month [facility] How many standard drinks containing alcohol do you have on a typical day? 1 or 2 [facility] How often do you hav e 6 or more drinks on 1 occasion? Never [facility] Start: 05-26-2023 Tobacco Comment Has a history of cessation from smokin02/09/2018 [facility] Start: 05-25-2024 End: 12-01-2024 Sex Male (finding) [facility] Start: 03-30-2018 National Score (1-10 0), lower number is lower risk 87 [facility] Start: 04-19-2018 Alcohol Comment [facility] Start: 07-12-1947 Tobacco smoking stat us KYIS Smokes tobacco daily [facility] Medical Equipment Procedure Code Equipment Code Equipment Origin al Text Equipment Identifier Dates ORIF, hip Orthopaedic bone screw, non-bioabsorbable, non-sterile [id number] FDA Start: 04-30-2023 ORIF, hip Femur nail, sterile [id number] FDA Start: 04-30-2023 ORIF, hip Spiral blade [id number] FDA Start: 04-30-2023 Insertion, pacemaker Endocardial defibrillation lead [id number] FDA Start: 05-24-2024 Insertion, pacemaker Dual-chamber implantable defibrillator ()[id number] FDA Start: 05-24-2024 Insertion, pacemaker Endocardial/interventr icular septal pacing lead ()[id number] FDA Start: 05-24-2024 CL STENT MARK FR ONTIER 3.5 X 18 FDA Start: 07-16-2023 CL STENT MARK FR ONTIER 3.5 X 18 FDA Start: 07-16-2023 Lancets Start: 09-05-2023 Pen Needle, Diab etic (Bd Ultra-Fine Marichuy Pen Needle) 32 gauge x 5/32 needle Start: 09-05-2023 CL STENT MARK FR ONTIER 3.5 X 18 FDA Start: 07-16-2023 Lancets Start: 09-05-2023 Pen Needle, Diab etic (Bd Ultra-Fine Marichuy Pen Needle) 32 gauge x 5/32 needle Start: 09-05-2023 CL STENT MARK FR ONTIER 3.5 X 18 FDA Start: 07-16-2023 Lancets Start: 09-05-2023 Pen Needle, Diab etic (Bd Ultra-Fine Marichuy Pen Needle) 32 gauge x 5/32 needle Start: 09-05-2023 CL STENT MARK FR ONTIER 3.5 X 18 FDA Start: 07-16-2023 Lancets Start: 09-05-2023 Pen Needle, Diab etic (Bd Ultra-Fine Marichuy Pen Needle) 32 gauge x 5/32 needle Start: 09-05-2023 CL STENT MARK FR ONTIER 3.5 X 18 FDA Start: 07-16-2023 Lancets Start: 09-05-2023 Pen Needle, Diab etic (Bd Ultra-Fine Marichuy Pen Needle) 32 gauge x 5/32 needle Start: 09-05-2023 CL STENT MARK FR ONTIER 3.5 X 18 FDA Start: 07-16-2023 Lancets Start: 09-05-2023 Pen Needle, Diab etic (Bd Ultra-Fine Marichuy Pen Needle) 32 gauge x 5/32 needle Start: 09-05-2023 CL STENT MARK FR ONTIER 3.5 X 18 FDA Start: 07-16-2023 Lancets Start: 09-05-2023 Pen Needle, Diab etic (Bd Ultra-Fine Marichuy Pen Needle) 32 gauge x 5/32 needle Start: 09-05-2023 CL STENT MARK FR ONTIER 3.5 X 18 FDA Start: 07-16-2023 Lancets Start: 09-05-2023 Pen Needle, Diab etic (Bd Ultra-Fine Marichuy Pen Needle) 32 gauge x 5/32 needle Start: 09-05-2023 CL STENT MARK FR ONTIER 3.5 X 18 FDA Start: 07-16-2023 Lancets Start: 09-05-2023 Pen Needle, Diab etic (Bd Ultra-Fine Marichuy Pen Needle) 32 gauge x 5/32 needle Start: 09-05-2023 CL STENT MARK FR ONTIER 3.5 X 18 FDA Start: 07-16-2023 Lancets Start: 09-05-2023 Pen Needle, Diab etic (Bd Ultra-Fine Marichuy Pen Needle) 32 gauge x 5/32 needle Start: 09-05-2023 CL STENT MARK FR ONTIER 3.5 X 18 FDA Start: 07-16-2023 Lancets Start: 09-05-2023 Pen Needle, Diab etic (Bd Ultra-Fine Marichuy Pen Needle) 32 gauge x 5/32 needle Start: 09-05-2023 CL STENT MARK FR ONTIER 3.5 X 18 FDA Start: 07-16-2023 Lancets Start: 09-05-2023 Pen Needle, Diab etic (Bd Ultra-Fine Marichuy Pen Needle) 32 gauge x 5/32 needle Start: 09-05-2023 CL STENT MARK FR ONTIER 3.5 X 18 FDA Start: 07-16-2023 Lancets Start: 09-05-2023 Pen Needle, Diab etic (Bd Ultra-Fine Marichuy Pen Needle) 32 gauge x 5/32 needle Start: 09-05-2023 CL STENT MARK FR ONTIER 3.5 X 18 FDA Start: 07-16-2023 Lancets Start: 09-05-2023 Pen Needle, Diab etic (Bd Ultra-Fine Marichuy Pen Needle) 32 gauge x 5/32 needle Start: 09-05-2023 CL STENT MARK FR ONTIER 3.5 X 18 FDA Start: 07-16-2023 Lancets Start: 09-05-2023 Pen Needle, Diab etic (Bd Ultra-Fine Marichuy Pen Needle) 32 gauge x 5/32 needle Start: 09-05-2023 CL STENT MARK FR ONTIER 3.5 X 18 FDA Start: 07-16-2023 Lancets Start: 09-05-2023 Pen Needle, Diab etic (Bd Ultra-Fine Marichuy Pen Needle) 32 gauge x 5/32 needle Start: 09-05-2023 [id number] Start: 07-15-2023 CL STENT MARK FR ONTIER 3.5 X 18 FDA Start: 07-16-2023 Lancets Start: 09-05-2023 Pen Needle, Diab etic (Bd Ultra-Fine Marichuy Pen Needle) 32 gauge x 5/32 needle Start: 09-05-2023 CL STENT MARK FR ONTIER 3.5 X 18 FDA Start: 07-16-2023 Lancets Start: 09-05-2023 Pen Needle, Diab etic (Bd Ultra-Fine Marichuy Pen Needle) 32 gauge x 5/32 needle Start: 09-05-2023 CL STENT MARK FR ONTIER 3.5 X 18 FDA Start: 07-16-2023 Lancets Start: 09-05-2023 Pen Needle, Diab etic (Bd Ultra-Fine Marichuy Pen Needle) 32 gauge x 5/32 needle Start: 09-05-2023 CL STENT MARK FR ONTIER 3.5 X 18 FDA Start: 07-16-2023 Lancets Start: 09-05-2023 Pen Needle, Diab etic (Bd Ultra-Fine Marichuy Pen Needle) 32 gauge x 5/32 needle Start: 09-05-2023 CL STENT MARK FR ONTIER 3.5 X 18 FDA Start: 07-16-2023 Lancets Start: 09-05-2023 Pen Needle, Diab etic (Bd Ultra-Fine Marichuy Pen Needle) 32 gauge x 5/32 needle Start: 09-05-2023 CL STENT MARK FR ONTIER 3.5 X 18 FDA Start: 07-16-2023 Blood Sugar Diag nostic strip Start: 09-05-2023 Lancets misc Start: 09-05-2023 Pen Needle, Diab etic (Bd Ultra-Fine Marichuy Pen Needle) 32 gauge x 5/32 needle Start: 09-05-2023 CL STENT MARK FR ONTIER 3.5 X 18 FDA Start: 07-16-2023 Blood Sugar Diag nostic strip Start: 09-05-2023 Lancets misc Start: 09-05-2023 Pen Needle, Diab etic (Bd Ultra-Fine Marichuy Pen Needle) 32 gauge x 5/32 needle Start: 09-05-2023 CL STENT MARK FR ONTIER 3.5 X 18 FDA Start: 07-16-2023 Blood Sugar Diag nostic strip Start: 09-05-2023 Lancets misc Start: 09-05-2023 Pen Needle, Diab etic (Bd Ultra-Fine Marichuy Pen Needle) 32 gauge x 5/32 needle Start: 09-05-2023 CL STENT MARK FR ONTIER 3.5 X 18 FDA Start: 07-16-2023 Blood Sugar Diag nostic strip Start: 09-05-2023 Lancets misc Start: 09-05-2023 Pen Needle, Diab etic (Bd Ultra-Fine Marichuy Pen Needle) 32 gauge x 5/32 needle Start: 09-05-2023 CL STENT MARK FR ONTIER 3.5 X 18 FDA Start: 07-16-2023 Blood Sugar Diag nostic strip Start: 09-05-2023 Lancets misc Start: 09-05-2023 Pen Needle, Diab etic (Bd Ultra-Fine Marichuy Pen Needle) 32 gauge x 5/32 needle Start: 09-05-2023 Use with insulin once daily in case of pump failure [id number] Start: 10-04-2024 CL STENT MARK FR ONTIER 3.5 X 18 FDA Start: 07-16-2023 Blood Sugar Diag nostic strip Start: 09-05-2023 Lancets misc Start: 09-05-2023 Pen Needle, Diab etic (Bd Ultra-Fine Marichuy Pen Needle) 32 gauge x 5/32 needle Start: 09-05-2023 CL STENT MARK FR ONTIER 3.5 X 18 FDA Start: 07-16-2023 Blood Sugar Diag nostic strip Start: 09-05-2023 Lancets misc Start: 09-05-2023 Pen Needle, Diab etic (Bd Ultra-Fine Marichuy Pen Needle) 32 gauge x 5/32 needle Start: 09-05-2023 CL STENT MARK FR ONTIER 3.5 X 18 FDA Start: 07-16-2023 Blood Sugar Diag nostic strip Start: 09-05-2023 Lancets misc Start: 09-05-2023 Pen Needle, Diab etic (Bd Ultra-Fine Marichuy Pen Needle) 32 gauge x 5/32 needle Start: 09-05-2023 CL STENT MARK FR ONTIER 3.5 X 18 FDA Start: 07-16-2023 Blood Sugar Diag nostic strip Start: 09-05-2023 Lancets misc Start: 09-05-2023 Pen Needle, Diab etic (Bd Ultra-Fine Marichuy Pen Needle) 32 gauge x 5/32 needle Start: 09-05-2023 Goals Date Patient Goal Desired Activity /State Functional Status Date Assessment Result Facility 07-17-2024 Functional status Patient at [facility] Work Phone: 07-17-2024 Functional status Patient at [facility] Work Phone: 06-21-2024 Functional status Patient is Pro gressing Toward [facility] Work Phone: 06-18-2024 Functional status Patient at [facility] Work Phone: 05-25-2024 Functional status Patient at [facility] Work Phone: 02-08-2024 Functional status Patient at [facility] Work Phone: 09-06-2023 Functional status Patient is Pro gressing Toward [facility] Work Phone: 07-16-2023 Functional status Patient at [facility] Work Phone: 05-08-2023 Functional status Patient is Pro gressing Toward [facility] Work Phone: 05-03-2023 Functional status Patient is Pro gressing Toward [facility] Work Phone: 04-28-2023 Functional status Patient Not at [facility] Work Phone: Mental Status Date Assessment Result Facility 07-17-2024 Cognitive function Cognitive Sta tus Patient at [facility] Work Phone: 07-17-2024 Cognitive function Cognitive Sta tus Patient at [facility] Work Phone: 06-21-2024 Cognitive function Cognitive Sta tus Patient at [facility] Work Phone: 06-18-2024 Cognitive function Cognitive Sta tus Patient at [facility] Work Phone: 05-25-2024 Cognitive function Cognitive Sta tus Patient at [facility] Work Phone: 02-08-2024 Cognitive function Cognitive Sta tus Patient at [facility] Work Phone: 09-06-2023 Cognitive function Cognitive Sta tus Patient at [facility] Work Phone: 07-16-2023 Cognitive function Cognitive Sta tus Patient at [facility] Work Phone: 05-08-2023 Cognitive function Cognitive Sta tus Patient is Progressing Toward [facility] Work Phone: 05-03-2023 Cognitive function Cognitive Sta tus Patient is Progressing Toward [facility] Work Phone: 04-28-2023 Cognitive function Cognitive Sta tus Patient at [facility] Work Phone: Clinical Notes 01-07-2022 to 02-06-2025 Telephone Encounter - Ayana Zavala APRN.CNP - 02/06/2025 11:55 AM EDTTelephone Encounter - Ayana Zavala APRN.CNP - 02/06/2025 11:55 AM EDRoberta Castro DO - 01/02/2025 11:30 AM EDT Note Date & Type Note Facility 02-06-2025 Telephone encounter Note Please fax labs to [facility]. See other encounter- Medicare is requiring documentation of his insulin level in order to cover his insulin under Part B. Please notify patient BG needs to be under 225 mg/dL in the AM in order for insulin level to be accurate. [facility] 02-06-2025 Miscellaneous Notes Please fax labs to [facility]. See other encounter- Medicare is requiring documentation of his insulin level in order to cover his insulin under Part B. Please notify patient BG needs to be under 225 mg/dL in the AM in order for insulin level to be accurate. documented in this encounter [facility] 02-05-2025 Telephone encounter Note Medicare requires a C-peptide (insulin level) on record for patient when filling insulin via Part B to use in insulin pump. I do not see one completed. Please have patient obtain fasting lab. His BG needs to be under 225 mg/dL in the morning for this to be an accurate reading. [facility] 02-05-2025 Miscellaneous Notes Medicare requires a C-peptide (insulin level) on record for patient when filling insulin via Part B to use in insulin pump. I do not see one completed. Please have patient obtain fasting lab. His BG needs to be under 225 mg/dL in the morning for this to be an accurate reading. documented in this encounter [facility] 01-02-2025 History of Present illness Narrative Images from the original note were not included. Manolo Vickers is a 89 y.o. male presents with chief complaint of Flank Pain (Left-side for 10 days, denies change in bowel movements, no known injury. Pain has been severe but intermittently) and lack of appetite (Wt loss of 10 lbs since last OV) HPI: History of Present Illness The patient presents for evaluation of pleurisy, diabetes, and end-stage heart failure. He reports a general feeling of malaise, characterized by fatigue, excessive sleepiness, loss of appetite, weight loss, and weakness. He experiences difficulty in performing simple tasks such as lifting a bag of mulch. His eating habits have been affected, with meals often leaving him feeling physically exhausted. Increased thirst and fluid intake, primarily water, are noted. He is not currently under the care of a pancreatic specialist but monitors his stool for any changes in color or consistency, which he has not observed. He reports no fevers, chills, or sweats. Shortness of breath is experienced, particularly when climbing stairs at home. He also reports balance issues, feeling lightheaded if he stands up too quickly. A history of coughing and chest congestion has improved significantly, although he still occasionally needs to clear his throat. Approximately 10 days ago, he experienced an episode of severe pain at 3:00 AM, described as similar to a bruised or cracked rib. This pain is exacerbated by certain breathing patterns and is located on the same side as a previous staph infection. Intermittent stomach pain is reported, which is not present at the time of the visit. He occasionally experiences a jerking sensation, similar to phantom pain. Overeating can exacerbate his symptoms, although this is a rare occurrence. Pain management has been with Tylenol. PAST SURGICAL HISTORY: Abdominal wall abscess resolved in 08/2024. I have reviewed and reconciled the history and medication list with the patient today. 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 (current) use of insulin (HCC) Lumbar spondylosis OA (osteoarthritis) Pancreatic insufficiency (HCC) Pancreatitis (HHS-HCC) Hospitalized Presence of insulin pump Rotator cuff tendonitis Type 1 diabetes mellitus with hyperglycemia (HCC) SURGICAL HISTORY: Past Surgical History: Procedure Laterality Date APPENDECTOMY 1948 CERVICAL DISCECTOMY [address] ANGIOGRAM HEART CORONARY 01/21/2024 CT ANGIOGRAM TAVR 01/21/2024 FINE NEEDLE ASPIRATION 04/2018 HEART CATH 04/2023 heart cath HIP SURGERY Right 04/2023 right hip surgery OTHER SURGICAL HISTORY 04/2024 ICD placement OTHER SURGICAL HISTORY abdominal I & D PARTIAL HIP ARTHROPLASTY Right 04/12/2023 TX TONSILLECTOMY & ADENOIDECTOMY <AGE 14 SPLENECTOMY, 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 STOMACH SURGERY 12/2021 Stomach Ulcer Surgery - [facility] VASECTOMY 1989 SOCIAL HISTORY: Social History Tobacco Use Smoking status: Every Day Average packs/day: 0.3 packs/day for 30.0 years (7.5 ttl pk-yrs) Types: Cigarettes Start date: 07/12/1947 Smokeless tobacco: Never Tobacco comments: Has a history of cessation from smokin02/09/2018 Substance Use Topics Alcohol use: Yes Alcohol/week: 5.0 standard drinks of alcohol Types: 5 Glasses of wine per week Drug use: Never Depression: Not at risk (04/17/2024) PHQ-2 PHQ-2 Score: 0 Recent Concern: Depression - At risk (01/21/2024) Received from [employer] PHQ-2 Total Score: 3 FAMILY HISTORY: Family History Problem Relation Name Age of Onset Stroke Mother Ana No Known Problems Father at age 82 Leukemia Sister Carol at age 33 from leukemia Cancer Sister Carol Cancer Brother at age 75 from possible unknown cancer Other (synovial cell cancer) Son Cancer Son Saúl MEDICATIONS: Current Outpatient Medications Medication Instructions Acetaminophen Extra Strength 500 MG tablet Daily albuterol HFA (ProAir HFA) 90 mcg/act inhaler 2 puffs, Inhalation, Every 4 hours PRN aspirin 81 mg, Daily atorvastatin (LIPITOR) 80 mg, Daily BD Pen Needle Marichuy 2nd Gen 32G X 4 MM misc Use with Insulin Once Daily in case of pump failure cholecalciferol (VITAMIN D-3) 2,000 Units, Daily glucose blood (Contour Next Test) test strip 1 each, Other, 3 times daily before meals, Use as instructed Gvoke HypoPen 1-Pack 1 mg, Once as needed Insulin Aspart 100 UNIT/ML solution ADMINISTER PER PUMP (MAX DAILY 75 UNITS) Insulin Disposable Pump (Omnipod DASH PDM, Gen 4,) kit Basal: 12A 0.3, 7A 0.4, 9P 0.5, 10 units breakfast, 8 units with lunch, 7 dinner, ISF: 75 Lactobacillus (Probiotic Acidophilus) capsule 1 capsule, Every 24 hours Lantus SoloStar 12 Units, Nightly lisinopril 2.5 mg, Daily loratadine (Claritin) 10 MG tablet 1 tablet, Daily metoprolol succinate XL (Toprol-XL) 50 MG 24 hr tablet 0.5 tablets, 2 times daily Multiple Vitamins-Minerals (Centrum Silver 50+Men) tablet 1 tablet, Daily nitroglycerin (NITROSTAT) 0.4 mg omeprazole (PRILOSEC) 20 mg, Daily before breakfast pancrelipase, Hqs-Rwil-Xwlu, (Creon) 28989-27244 units capsule TAKE 2 CAPSULES BY MOUTH DAILY WITH MEALS AND 1 CAPSULE BY MOUTH WITH SNACKS DIRECTED PARoxetine (PAXIL) 40 mg, Oral, Every morning spironolactone (Aldactone) 25 MG tablet 1 tablet, Daily tamsulosin (Flomax) 0.4 MG 24 hr capsule 1 capsule, Nightly ALLERGIES: No Known Allergies PHYSICAL EXAM: Visit Vitals BP 122/66 (BP Location: Left arm, Patient Position: Sitting) Pulse 64 Ht 5' 10 Wt 138 lb SpO2 96% BMI 19.80 kg/m Smoking Status Every Day BSA 1.76 m BP Readings from Last 3 Encounters: 01/02/25 122/66 08/30/24 120/70 07/20/24 122/60 Wt Readings from Last 3 Encounters: 01/02/25 138 lb 07/20/24 148 lb 07/03/24 142 lb Physical Exam Results ASSESSMENT AND PLAN: Assessment & Plan 1. Pleurisy. - Inflammation of the lung lining and fluid accumulation in the left lung noted. - Physical exam reveals dullness and crackles on the left side, consistent with fluid presence. - X-ray ordered today to investigate the cause of fluid accumulation. - Potential hospitalization for fluid removal and analysis if fluid is confirmed. 2. End-stage heart failure. - Classified as [place] Heart Association Class III/IV, indicating severe heart failure. - Experiences shortness of breath with minimal activity and significant fatigue. - Physical exam findings consistent with severe heart failure. - Continued monitoring and management of heart failure symptoms are essential. 3. Insulin-requiring diabetes mellitus. - Insulin-requiring diabetes being closely monitored by Dr. Kamilla Zavala. - Patient has experienced weight loss, which is concerning. - No changes in stool color noted; no fevers, chills, or sweats reported. - Continued diabetes management and monitoring are necessary. documented in this encounter [facility] 01-02-2025 Instructions Selma Wilcox LPN - 01/02/2025 11:30 AM EDT ?? ATTENTION: [employer] Policy Update - Effective 12/13/24 Beginning today, our nursing team will review [employer] messages twice daily and help determine the best next steps before involving your provider. If your message requires more than a quick, simple response, a nurse will follow up to decide whether an in-person appointment is needed or if your question can be handled through secure messaging. Please note: Some more detailed or complex medical questions may result in a charge, similar to a brief office visit, if handled via [employer]. We want you to feel informed and confident when using [employer], so here are a few examples to clarify: ? No Charge (Nonbillable Messages): Medication refill requests Lab Requests Sending in provider requested data/follow-ups from visit (e.g., blood pressure, blood sugar, symptoms after treatment, report medication response) Quick questions that can be answered in a sentence or two ?? May Result in a Charge: Questions about a new medical issue that hasn t been evaluated in the past 7 days Messages that require significant provider time, medical decision-making, or new prescriptions/orders We re committed to keeping communication open, clear, and helpful, while ensuring you get the right care at the right time. You will be notified prior to any communication charge. Thank you for partnering with us in your health! documented in this encounter [facility] 12-27-2024 Telephone encounter Note Spoke to patient's . The sensors are ready for picking machine operator helper at pharmacy. She will let us know where she would like the refills sent when they are ready, nothing further for now. [facility] 12-27-2024 Miscellaneous Notes Spoke to patient's . The sensors are ready for picking machine operator helper at pharmacy. She will let us know where she would like the refills sent when they are ready, nothing further for now. Please call [facility] to inquire what is needed from the office. documented in this encounter [facility] 12-27-2024 Telephone encounter Note Please call [facility] to inquire what is needed from the office. [facility] 12-25-2024 Telephone encounter Note Rx sent however patient obtains typically from [facility], are they still having issues obtaining from there? [facility] 12-25-2024 Miscellaneous Notes Rx sent however patient obtains typically from [facility], are they still having issues obtaining from there? Pt needs refill on sensors. Do not see on current med list. Pt uses [facility] in [facility]. Insurance is not going to pay for this until 01/03. Spouse is requesting to speak to a nurse about getting an alternative until then. Please review and advise. Patient has been identified by name and birthdate. Duration of symptoms: N/A Person calling: self Call patient at: on cell [phone] ([employer]) Was an appointment scheduled: No Closing statement: Results or non-symptom based questions: Thank you for calling [facility], your call will be returned within the next business day. Sharonda Kay documented in this encounter [facility] 12-19-2024 Telephone encounter Note Pt needs refill on sensors. Do not see on current med list. Pt uses [facility] pharmacy in [facility]. Insurance is not going to pay for this until 01/03. Spouse is requesting to speak to a nurse about getting an alternative until then. Please review and advise. Patient has been identified by name and birthdate. Duration of symptoms: N/A Person calling: self Call patient at: on cell [phone] ([employer]) Was an appointment scheduled: No Closing statement: Results or non-symptom based questions: Thank you for calling [facility], your call will be returned within the next business day. Sharonda Kay [facility] 12-12-2024 Telephone encounter Note Prescription Refill Information Pt states he needs this SID. The patient has been identified by name and date of : Yes Caregiver verified no other encounters exist for this prescription request: Yes Caregiver confirmed with patient/requestor that no other refills are due, in the near future, with this provider at this time: Yes The last office visit in the department: 10/26/24 Does the patient have a future office visit with this provider/department: Yes Requested Prescriptions Pending Prescriptions Disp Refills insulin pump cart,auto,BT,G6/7 (OMNIPOD 5 G6-G7 PODS, GEN 5,) crtg 10 each 5 Sig: Change every 72 hours. Steven Patrick December 12, 2024 3:37 PM [facility] 12-12-2024 Miscellaneous Notes Prescription Refill Information Pt states he needs this SID. The patient has been identified by name and date of : Yes Caregiver verified no other encounters exist for this prescription request: Yes Caregiver confirmed with patient/requestor that no other refills are due, in the near future, with this provider at this time: Yes The last office visit in the department: 10/26/24 Does the patient have a future office visit with this provider/department: Yes Requested Prescriptions Pending Prescriptions Disp Refills insulin pump cart,auto,BT,G6/7 (OMNIPOD 5 G6-G7 PODS, GEN 5,) crtg 10 each 5 Sig: Change every 72 hours. Steven Patrick December 12, 2024 3:37 PM documented in this encounter [facility] 11-01-2024 Telephone encounter Note Please call pharmacy to inquire which insulin is covered or what they need prescription to say- do they need it sent as brand Novolog? [facility] 11-01-2024 Miscellaneous Notes Please call pharmacy to inquire which insulin is covered or what they need prescription to say- do they need it sent as brand Novolog? documented in this encounter [facility] 10-26-2024 Instructions Ayana Zavala APRN.KALANI - 10/26/2024 12:38 PM EDT Plan Basal 12am 0.4 8am 0.5 ICR 12am 15 ISF 12am 60 BG Correction Threshold 12am 150 BG Target 12am 150 Recommend discontinuing Farxiga due to risk of euglycemic diabetic ketoacidosis- discussed with PCP / spa manager BACKUP INSULIN PLAN: Only use this if you are to be off of your insulin pump Do not resume your pump until 24 hours after your last Lantus dose Lantus 12 units daily Novolog 4 units with meals + sliding scale If Blood Glucose (mg/dL) is <150 Give 0 extra units 151-200 Give 1 extra unit 201-250 Give 2 extra units 251-300 Give 3 extra units 301-350 Give 4 extra units 351-400 Give 5 extra units >400 Give 6 extra units Check your blood glucose 4 times per day using CGM Glucose targets as: Fasting 80-130, before meals 100-130, and bedtime 100-150 mg/dL. Call the office with blood sugars less than 70 Follow up in 8 weeks documented in this encounter [facility] 10-26-2024 Note HNO ID: [id number] Author: AYANA ZAVALA APRN.KALANI Service: ? Author Type: Nurse Practitioner Type: Progress Notes Filed: 10/26/2024 13:11 Note Text: Endocrinology Follow Up History of Present Illness Manolo Vickers is a 89 year old male presents today for follow up of DM Type 1. Here with . At [facility] 09/25/2024, basal rate settings were changed, sensor was reconnected with pump, and he was resumed in Automated Mode. At that time, labs revealed BG 614 mg/dL, anion gap 17 (with normal CO2 of 24). Patient was advised to go to the ER. When he was seen in the ER, sugar had normalized to the mid 100s and he was discharged home. Since then, sugars initially improved, but he has since had several issues. Had delayed shipment of CGMs from his supplier but did ultimately receive. He also had a pod failure recently and needed to change this. He has been following up closely with CDE. Reports the past few weeks he has been doing ok with the pump. He is not currently in Automated Mode. He is not sure why he is not. His sensor is connected with his pump. He was previosly on Jardiance for CHF but this was d/c due to hypotension. Farixga was started by PCP 08/2024 instead. He has been on this for two months. just picked up refill of this and it was $200 for a 30 day supply. 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 No history of diabetes prior to this. He reports taking Lantus 12 units daily at bedtime in addition to his pump and has been doing this for awhile. He takes manual boluses for breakfast, lunch and dinner (10-8-7 units). He does not know how to carb count. He has significant fluctuations in his blood sugar, with frequent hypoglycemia typically overnight. He is eating more frequently to keep his glucose up and then having elevations later in the day. EMS has been called several times due to his low glucose. He does not have warning symptoms of his low blood sugars. Family reports they can usually have him correct with juice or honey but he is sometimes confused during low blood sugar episodes. Upgraded from Omnipod DASH to Omnipod 5 on 09/04/24. Date of Diagnosis: 2019 Last HbA1c: Hemoglobin A1C (POCT) (%) Date Value 10/26/2024 12.0 07/06/2024 10.1 Family history of diabetes includes none. Complications Microvascular: none Macrovascular: CAD s/p PCI Comorbidities: HTN, COPD, CAD, CHF, ICM, BPH, IPMN, pancreatitis Health Maintenance Topics Topic Date Due Dilated Retinal Exam Never done Diabetic Foot Exam Never done Prior DM Medications: Jardiance- stopped by cardiology Current DM Related Medications: Current Medications 10/26/2024 DIABETES THERAPIES Medication Dosage Pharm Subclass dapagliflozin propanediol (FARXIGA) 10 mg tablet Take 1 tablet by mouth once daily. Antihyperglycemic - Sodium Glucose Cotransporter-2 (SGLT2) Inhibitors insulin aspart U-100 (NOVOLOG U-100 INSULIN ASPART) 100 unit/mL ADMINISTER PER PUMP (MAX DAILY 75 UNITS) Insulin Analogs - Rapid Acting insulin glargine (LANTUS SOLOSTAR U-100 INSULIN) 100 unit/mL (3 mL) Inject 12 Units subcutaneously daily at bedtime. For use in case of pump failure Insulin Analogs - Long Acting CARDIOVASCULAR Medication Dosage Pharm Subclass atorvastatin (LIPITOR) 80 mg tablet Take 80 mg by mouth daily at bedtime. Antihyperlipidemic - HMG CoA Reductase Inhibitors (statins) lisinopril 2.5 mg tablet Take 2.5 mg by mouth. MIS Inhibitors metoprolol succinate ER (TOPROL XL) 50 mg 24 hr tablet Take 0.5 tablets by mouth every 12 hours. Beta Blockers Cardiac Selective DIURETICS Medication Dosage Pharm Subclass spironolactone (ALDACTONE) 25 mg tablet Take 25 mg by mouth once daily. Diuretic - Aldosterone Receptor Antagonist, Non-selective ANTI-PLATELET THERAPIES Medication Dosage Pharm Subclass aspirin, enteric coated (ASPIRIN, ENTERIC COATED) 81 mg EC tablet Take 81 mg by mouth once daily. Salicylate Analgesics ASPIRIN Medication Dosage Pharm Subclass aspirin, enteric coated (ASPIRIN, ENTERIC COATED) 81 mg EC tablet Take 81 mg by mouth once daily. Salicylate Analgesics OTHER Medication Dosage Pharm Subclass cetirizine (ZYRTEC) 10 mg tablet Take 10 mg by mouth once daily. Antihistamines - 2nd Generation cholecalciferol (VITAMIN D-3) 2,000 unit tablet Take 2,000 Units by mouth once daily. Vitamins - D Derivatives folic acid/multivit-min/lutein (CENTRUM SILVER ORAL) Take by mouth once daily. Multivitamin and Mineral Combinations glucagon (GVOKE HYPOPEN 2-PACK) 1 mg/0.2 mL auto-injector Inject 1 mg subcutaneously as needed. Agents to treat Hypoglycemia (Hyperglycemics) Insulin Ewing, Disposable, (BD ULTRA-FINE MARICHUY PEN NEEDLE) 32 gauge x 5/32 Use with insulin once daily in case of pump failure Medical Supplies and DME - Insulin Ewing-Syringes and Admin Supp (more content not included)... [facility] 10-26-2024 History of Present illness Narrative Endocrinology Follow Up History of Present Illness Manolo Vickers is a 89 year old male presents today for follow up of DM Type 1. Here with . At [facility] 09/25/2024, basal rate settings were changed, sensor was reconnected with pump, and he was resumed in Automated Mode. At that time, labs revealed BG 614 mg/dL, anion gap 17 (with normal CO2 of 24). Patient was advised to go to the ER. When he was seen in the ER, sugar had normalized to the mid 100s and he was discharged home. Since then, sugars initially improved, but he has since had several issues. Had delayed shipment of CGMs from his supplier but did ultimately receive. He also had a pod failure recently and needed to change this. He has been following up closely with CDE. Reports the past few weeks he has been doing ok with the pump. He is not currently in Automated Mode. He is not sure why he is not. His sensor is connected with his pump. He was previosly on Jardiance for CHF but this was d/c due to hypotension. Farixga was started by PCP 08/2024 instead. He has been on this for two months. just picked up refill of this and it was $200 for a 30 day supply. 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 No history of diabetes prior to this. He reports taking Lantus 12 units daily at bedtime in addition to his pump and has been doing this for awhile. He takes manual boluses for breakfast, lunch and dinner (10-8-7 units). He does not know how to carb count. He has significant fluctuations in his blood sugar, with frequent hypoglycemia typically overnight. He is eating more frequently to keep his glucose up and then having elevations later in the day. EMS has been called several times due to his low glucose. He does not have warning symptoms of his low blood sugars. Family reports they can usually have him correct with juice or honey but he is sometimes confused during low blood sugar episodes. Upgraded from Omnipod DASH to Omnipod 5 on 09/04/24. Date of Diagnosis: 2019 Last HbA1c: Hemoglobin A1C (POCT) (%) Date Value 10/26/2024 12.0 07/06/2024 10.1 Family history of diabetes includes none. Complications Microvascular: none Macrovascular: CAD s/p PCI Comorbidities: HTN, COPD, CAD, CHF, ICM, BPH, IPMN, pancreatitis Health Maintenance Topics Topic Date Due Dilated Retinal Exam Never done Diabetic Foot Exam Never done Prior DM Medications: Jardiance- stopped by cardiology Current DM Related Medications: Current Medications 10/26/2024 DIABETES THERAPIES Medication Dosage Pharm Subclass dapagliflozin propanediol (FARXIGA) 10 mg tablet Take 1 tablet by mouth once daily. Antihyperglycemic - Sodium Glucose Cotransporter-2 (SGLT2) Inhibitors insulin aspart U-100 (NOVOLOG U-100 INSULIN ASPART) 100 unit/mL ADMINISTER PER PUMP (MAX DAILY 75 UNITS) Insulin Analogs - Rapid Acting insulin glargine (LANTUS SOLOSTAR U-100 INSULIN) 100 unit/mL (3 mL) Inject 12 Units subcutaneously daily at bedtime. For use in case of pump failure Insulin Analogs - Long Acting CARDIOVASCULAR Medication Dosage Pharm Subclass atorvastatin (LIPITOR) 80 mg tablet Take 80 mg by mouth daily at bedtime. Antihyperlipidemic - HMG CoA Reductase Inhibitors (statins) lisinopril 2.5 mg tablet Take 2.5 mg by mouth. MIS Inhibitors metoprolol succinate ER (TOPROL XL) 50 mg 24 hr tablet Take 0.5 tablets by mouth every 12 hours. Beta Blockers Cardiac Selective DIURETICS Medication Dosage Pharm Subclass spironolactone (ALDACTONE) 25 mg tablet Take 25 mg by mouth once daily. Diuretic - Aldosterone Receptor Antagonist, Non-selective ANTI-PLATELET THERAPIES Medication Dosage Pharm Subclass aspirin, enteric coated (ASPIRIN, ENTERIC COATED) 81 mg EC tablet Take 81 mg by mouth once daily. Salicylate Analgesics ASPIRIN Medication Dosage Pharm Subclass aspirin, enteric coated (ASPIRIN, ENTERIC COATED) 81 mg EC tablet Take 81 mg by mouth once daily. Salicylate Analgesics OTHER Medication Dosage Pharm Subclass cetirizine (ZYRTEC) 10 mg tablet Take 10 mg by mouth once daily. Antihistamines - 2nd Generation cholecalciferol (VITAMIN D-3) 2,000 unit tablet Take 2,000 Units by mouth once daily. Vitamins - D Derivatives folic acid/multivit-min/lutein (CENTRUM SILVER ORAL) Take by mouth once daily. Multivitamin and Mineral Combinations glucagon (GVOKE HYPOPEN 2-PACK) 1 mg/0.2 mL auto-injector Inject 1 mg subcutaneously as needed. Agents to treat Hypoglycemia (Hyperglycemics) Insulin Ewing, Disposable, (BD ULTRA-FINE MARICHUY PEN NEEDLE) 32 gauge x Use with insulin once daily in case of pump failure Medical Supplies and DME - Insulin Ewing-Syringes and Admin Supplies insulin pump cart,auto,BT,G6/7 (OMNIPOD 5 G6-G7 PODS, GEN 5,) crtg Change every 72 hours. Medical Supply, FDB Superset Lactobac no.41/Bifidobact no.7 (PROBIOTIC-10 ORAL) Take by mouth once daily. Intestinal Chayo Modifiers rinwpl-szjtojka-igpdido (CREON) 24,000-76,000 -120,000 unit cpDR Take 2 capsules by mouth three times daily with meals. and 1 with snacks (8/day) Digestive Enzyme Mixtures lutein-zeaxanthin 25-5 mg cap Take by mouth once daily. Alternative Therapy - Antioxidant Omeprazole Magnesium 20 mg tablet Take 20 mg by mouth. Gastric Acid Secretion Chief Deputy Sheriff - Proton Pump Inhibitors (PPIs) PARoxetine (PAXIL) 40 mg tablet Take 40 mg by mouth every morning. Antidepressant - Selective Serotonin Reuptake Inhibitors (SSRIs) tamsulosin (FLOMAX) 0.4 mg Take 0.4 mg by mouth. Prostatic Hypertrophy Agent - [id number] Antagonists Physical Activity: No formal program Diet: CHO Controlled Diet SMBG Frequency of Monitoring: Four times a Day Summary of Personal CGM Findings: Dates worn: 10/12/2024-10/25/2024 CGM Type: Enerkem 1- CGM recording is adequate for interpretation. Worn 68% of time. 2- Average glucose is 255 mg/dl. 3. 26% time in range 70-180mg/dL 4. Coefficient of variation: 40% 5. Total frequency of hypoglycemia: 1% with BG<70 * Hypoglycemia patterns: early AM *Nocturnal hypoglycemia noted 6- Hyperglycemic episodes 73% with BG>180 * Hyperglycemia Patterns: postprandial Pump Settings: Omnipod 5 Basal 12am 0.5 ICR 12am 15 ISF 12am 60 BG Correction Threshold 12am 150 BG Target 12am 150 TDD 19.4 units Basal 59%, Bolus 41% In Automated Mode 22% of the time Past History, Medications, Allergies No past medical history on file. PAST SURGICAL HISTORY Procedure Laterality Date APPENDECTOMY HX BACK SURGERY HX TONSILLECTOMY HX ALLERGIES No Known Allergies No family history on file. Social History Tobacco Use Smoking status: Former Current packs/day: 0.00 Types: Cigarettes Quit date: 03/15/2018 Years since quittin.6 Smokeless tobacco: Never Substance Use Topics Alcohol use: Yes Comment: social use Drug use: No Review of Systems GENERAL: No weight loss, malaise or fevers RESPIRATORY: Negative for cough, hemoptysis, wheezing, COPD, dyspnea or shortness of breath CARDIOVASCULAR: Negative for chest pain, leg swelling, CHF or palpitations GI: No nausea, vomiting, or diarrhea ENDOCRINE: Negative for cold or heat intolerance, polyuria, polydipsia and goiter NEUROLOGIC:Negative for focal numbness or weakness, headaches and dizziness or syncope. Physical examination BP 163/80 (BP Site: Left Arm, BP Position: Sitting, BP Cuff Size: Large Adult) Pulse 60 Ht 177.8 cm (5' 10 ) Wt 61 kg (134 lb 7.7 oz) SpO2 99% BMI 19.30 kg/m General appearance: Well appearing, alert, in no acute distress, well-hydrated, well nourished. Skin: Skin color, texture, turgor normal, no suspicious rashes or lesions HEART: normal rate LUNGS: unlabored, normal respiratory rate EXTREMITIES No deformities, No skin discoloration and No edema NEURO: Speech normal, mental status intact, no tremor noted. Previous Laboratory Results LABS Glucose (mg/dL) Date Value 09/25/2024 614 Potassium (mmol/L) Date Value 09/25/2024 5.2 Sodium (mmol/L) Date Value 09/25/2024 127 Chloride (mmol/L) Date Value 09/25/2024 86 CO2 (mmol/L) Date Value 09/25/2024 24 Creatinine (mg/dL) Date Value 09/25/2024 1.09 BUN (mg/dL) Date Value 09/25/2024 37 Anion Gap (mmol/L) Date Value 09/25/2024 17 Calcium, Total (mg/dL) Date Value 09/25/2024 9.3 Estimated Glomerular Filtration Rate (mL/min/1.73m ) Date Value 09/25/2024 66 ALT (U/L) Date Value 09/25/2024 43 04/19/2018 12 TSH Date Value Ref Range Status 04/19/2018 0.874 0.400 - 5.500 uU/mL Final Impression/Recommendations IMPRESSION Manolo Vickers is a 89 year old here for 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 RECOMMENDATIONS: 1. Glycemic control: Target HbA1C is less than 7.0% per ADA guidelines. This patient is not at target. Has had several technical issues and supply issues, along with inconsistent carb entry, which has lead to inadequate control. He is not currently in Automated Mode. Trend when out of Automated Mode is for steep declines overnight and postprandial elevations. When he is in Automated Mode, glucose is much better controlled, without lows overnight and improvement in postprandial elevations. ICR and ISF seem sufficient when utilizing closed loop and entering in carbs consistently. Goal would be for him to stay in Automated Mode as much as possible and be vigilant with carb entry. Reviewed how to enter back into Automated Mode and how to check if he is in this from the main screen- patient expressed understanding. We reviewed need for consistent carb entry. Will reduce basal rate overnight in the case he is in manual mode, however, given steep declines overnight in these circumstances. Given he is insulin dependent from total pancreatectomy, I would not recommend a SGLT2i for this patient. Advised to discuss further with PCP / spa manager, but from our standpoint he would be at a high risk of diabetic ketoacidosis given poor control and insulin deficiency. I did have discussion with patient and of appropriateness of managing his diabetes with an insulin pump given knowledge gap in managing pump properly. When presenting the idea of switching to MDI, patient expressed he wishes to remain on the pump. Will continue to provide close follow up and support with our office and CDE but will need to readdress if safety in managing pump continues to be a concern. Plan Basal 12am 0.4 8am 0.5 ICR 12am 15 ISF 12am 60 BG Correction Threshold 12am 150 BG Target 12am 150 Recommend discontinuing Farxiga- discussed with PCP / spa manager BACKUP INSULIN PLAN: Only use this if you are to be off of your insulin pump Do not resume your pump until 24 hours after your last Lantus dose Lantus 12 units daily Novolog 4 units with meals + sliding scale If Blood Glucose (mg/dL) is <150 Give 0 extra units 151-200 Give 1 extra unit 201-250 Give 2 extra units 251-300 Give 3 extra units 301-350 Give 4 extra units 351-400 Give 5 extra units >400 Give 6 extra units Check your blood glucose 4 times per day using CGM Glucose targets as: Fasting 80-130, before meals 100-130, and bedtime 100-150 mg/dL. Call the office with blood sugars less than 70 Follow up in 8 weeks Patient to continue to follow up with his PCP and with other consultants regarding his other medical problems. The patient was reminded to check their blood glucose as directed and to record the data in a logbook. This patient was advised to bring their logbook to each office visit. I recommended at least 150 minutes per week of moderate physical activity, such as walking and to reduce carbohydrates and overall caloric intake. 2. Hypertension/BP control: BP goal for patients with diabetes is 130/80. -- This patient is not at target on their current regimen. Managed by PCP. 3. Lipids: Target LDL cholesterol in patients with diabetes is less than 100, less than 70 if patient has overt CVD. Several studies have shown cardiovascular benefits of statin therapy in all patients with diabetes over age 40 with at least 1 CVD risk factor. Total Cholesterol, Nonfasting Date Value Ref Range Status 09/25/2024 144 <200 mg/dL Final Comment: <200 mg/dL, Desirable 200-239 mg/dL, Borderline high >239 mg/dL, High HDL Cholesterol, Nonfasting Date Value Ref Range Status 09/25/2024 51 >39 mg/dL Final Comment: 40-59 mg/dL, Acceptable >59 mg/dL, High: Negative risk factor for coronary heart disease <40 mg/dL, Low: Positive risk factor for coronary heart disease LDL Cholesterol, Nonfasting Date Value Ref Range Status 09/25/2024 59 <100 mg/dL Final Comment: <100 mg/dL, Optimal 100-129 mg/dL, Near optimal/above optimal 130-159 mg/dL, Borderline high 160-189 mg/dL, High >189 mg/dL, Very high Secondary prevention optimal LDL Cholesterol levels are recommended to be < 70 mg/dL Triglycerides, Nonfasting Date Value Ref Range Status 09/25/2024 168 (H) <150 mg/dL Final Comment: <150 mg/dL, Normal 150-199 mg/dL, Borderline high 200-499 mg/dL, High >499 mg/dL, Very high -- This patient is currently at target. Not on statin. 4. Nephropathy screening: Annual measurement of urine albumin excretion is recommended in patients with diabetes. 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 5. Ophthalmology: Annual dilated eye exams are recommended for patients with type 1 and type 2 diabetes. -- Follows yearly with outside ophthalmology- no DR per patient report. Any part of this document that has been added/copied & pasted from other documents has been reviewed for accuracy and updated as appropriate at the time of the patient encounter Ayana Zavala APRN.KALANI (Signed electronically to expedite mailing) documented in this encounter [facility] 10-13-2024 Evaluation note Diagnosis Onset Date Resolution Ischemic cardiomyopathy acute A pri2024 9:10am Type 1 diabetes mellitus acute October 13, 2024 9:10am Acute GI bleeding resolved October 132024 9:10am Coronary artery disease involving [place] coronary artery of [place] heart wi inactive October 13, 2024 9:10am Hypertension inactive October 13, 025 9:10am S/P PTCA (percutaneous transluminal coronary angioplasty) inactive October 13, 2024 9:10am [facility] Work Phone: [phone]) 119-985704-02-2025 Telephone encounter Note* Telephone Encounter - Gaye Mata RN - 10/11/2024 4:17 PM EDT Patient's sent message patient had received Dexcom G7 CGM sensors from [employer] lastnight. Patient applied Omnipod 6 insulin pump yesterday but is now getting a pod failure notice. Upon review of patient's [place] report, patient appears to be connected to the pod and CGM, however ishaving some lows around or below 50. Left message on how to not overestimate carb intake, treat hypoglycemia with 4 oz juice or hard candy, use Gvoke emergency pen and call 911 if needed if blood sugars continue to drop under 50 and are not coming up after 3 treatments. Recommended patient and wifereturn to educator for additional education on the pump and CGM in the next few days. [place] [id number] Miscellaneous Notes* Telephone Encounter - Gaye Mata RN - 10/11/2024 4:17 PM EDT Patient's sent message patient had received Dexcom G7 CGM sensors from [employer] lastnight. Patient applied Omnipod 6 insulin pump yesterday but is now getting a pod failure notice. Upon review of patient's [place] report, patient appears to be connected to the pod and CGM, however ishaving some lows around or below 50. Left message on how to not overestimate carb intake, treat hypoglycemia with 4 oz juice or hard candy, use Gvoke emergency pen and call 911 if needed if blood sugars continue to drop under 50 and are not coming up after 3 treatments. Recommended patient and wifereturn to educator for additional education on the pump and CGM in the next few days. [facility] Miscellaneous Notes* Telephone Encounter - Gaye Mata RN - 10/11/2024 4:00 PM EDT LM VM for pt to return call. Patient appears to now be connected to the sensor. Advised how to treat hypoglycemia. Recommended see educator for appt to review pump and sensor operation [facility] Telephone encounter Note * Telephone Encounter - Gaye Mata RN - 10/11/2024 4:00 PM EDT LM VM for pt to return call. Patient appears to now be connected to the sensor. Advised how to treat hypoglycemia. Recommended see educator for appt to review pump and sensor operation [facility]04-02-2025 Telephone encounter Note* Telephone Encounter - Ruchi Rhoades - 10/11/2024 11:37 AM EDT Images from the original note were not included. [facility]04-02-2025 Miscellaneous Notes* Telephone Encounter - Ruchi Rhoades - 10/11/2024 11:37 AM EDT Images from the original note were not included. * Telephone Encounter - Ruchi Rhoades - 10/11/2024 11:31 AM EDT Images from the original note were not included. Initiated PA for insulin pump cart,auto,BT,G6/7 (OMNIPOD 5 G6-G7 PODS, GEN 5,) crtg through [employer] Medicare Chart notes attached Questions Completed Waiting for determination [facility] Prior Dairy Nutrition Consultant Endocrinology and Metabolism [place] * Telephone Encounter - Ayana Zavala APRN.CNP - 10/11/2024 8:07 AM EDT Received notice from pharmacy PA is request for Ominpod 5 pods. Please complete. documented in this encounterC[facility] Telephone encounter Note * Telephone Encounter - Ruchi Rhoades - 10/11/2024 11:31 AM EDT Images from the original note were not included. Initiated PA for insulin pump cart,auto,BT,G6/7 (OMNIPOD 5 G6-G7 PODS, GEN 5,) crtg through [employer] Medicare Chart notes attached Questions Completed Waiting for determination [facility] Prior Dairy Nutrition Consultant Endocrinology and Metabolism [place] [facility]04-02-2025 Telephone encounter Note* Telephone Encounter - Ayana Zavala APRN.CNP - 10/11/2024 8:07 AM EDT Received notice from pharmacy PA is request for Ominpod 5 pods. Please complete. [facility]04-02-2025 Telephone encounter Note* Telephone Encounter - Ayana Zavala APRN.CNP - 10/11/2024 8:06 AM EDT Will send PA request in other encounter to PA team. [facility]04-02-2025 Miscellaneous Notes* Telephone Encounter - Ayana Zavala APRN.CNP - 10/11/2024 8:06 AM EDT Will send PA request in other encounter to PA team. documented in this encounterC[facility] Telephone encounter Note * Telephone Encounter - Erick Peguero LPN - 10/10/2024 3:28 PM EDT Spoke to [facility] Rep, he reported that the Dexcom supplies should be delivered today vis [employer]. Tracking nbr [id number]. According to his notes it was out for delivery at 5:48 am 10/10/2024. I attempted to reach patient at both nbrs listed, no answer. left with update. I will send a [employer] message as well. [facility]04-01-2025 Miscellaneous Notes* Telephone Encounter - Erick Peguero LPN - 10/10/2024 3:28 PM EDT Spoke to [facility] Rep, he reported that the Dexcom supplies should be delivered today vis [employer]. Tracking nbr [id number]. According to his notes it was out for delivery at 5:48 am 10/10/2024. I attempted to reach patient at both nbrs listed, no answer. VM left with update. I will send a [employer] message as well. * Telephone Encounter - Gaye Mata RN - 10/10/2024 9:31 AM EDT Called and spoke with patient's . Patient called educator last week stating he has been having issues getting his Dexcom G7 CGM sensors from his DME company, [employer]. Patient states he called thema few times and they promised to ship out the sensors last week, however, patient has not received them. Patient and were both advised to contact the provider's office to see if there was any delays or issues regarding paperwork they were waiting on but they have not done so as of this date. Patient is not connected to the Omnipod 5 pump for the last few days. I offered to help them get reconnected to the pump once the Dexcom G7 sensors arrive. Patient's stated patient is frustratedand is considering going back to [facility]. She has my contact information to call for appointment to gethim reconnected to the pump when ready. Message forwarded to patient's provider office for follow up. documented in this encounterC[facility] Telephone encounter Note * Telephone Encounter - Gaye Mata RN - 10/10/2024 9:31 AM EDT Called and spoke with patient's . Patient called educator last week stating he has been having issues getting his Dexcom G7 CGM sensors from his DME company, [employer]. Patient states he called thema few times and they promised to ship out the sensors last week, however, patient has not received them. Patient and were both advised to contact the provider's office to see if there was any delays or issues regarding paperwork they were waiting on but they have not done so as of this date. Patient is not connected to the Omnipod 5 pump for the last few days. I offered to help them get reconnected to the pump once the Dexcom G7 sensors arrive. Patient's stated patient is frustratedand is considering going back to [facility]. She has my contact information to call for appointment to gethim reconnected to the pump when ready. Message forwarded to patient's provider office for follow up. [facility]03-26-2025 Telephone encounter Note* Telephone Encounter - Gaye Mata RN - 10/04/2024 4:38 PM EDT [employer] called stating that he is out of Dexcom G7 CGM sensors and has been having difficulty getting the shipment from [employer], his DME supplier. Patient states he made 3 calls to them this week, one including a checking department supervisor at [facility], who promised that the shipment was sent and would be received in a day or two. Advised patient to contact his provider's office to see if they are able to help as they submitted all the original paperwork to [facility] back in August and I am not sure if they are waiting on something from the office. Patient was also told to see if the provider's office had Dexcom G7 sensor samples to provide until his shipment arrives so he does not have to drive out to [facility]. Patient verbalized understanding. [facility]03-26-2025 Miscellaneous Notes* Telephone Encounter - Gaye Mata RN - 10/04/2024 4:38 PM EDT [employer] called stating that he is out of Dexcom G7 CGM sensors and has been having difficulty getting the shipment from [employer], his DME supplier. Patient states he made 3 calls to them this week, one including a checking department supervisor at [facility], who promised that the shipment was sent and would be received in a day or two. Advised patient to contact his provider's office to see if they are able to help as they submitted all the original paperwork to [employer] back in August and I am not sure if they are waiting on something from the office. Patient was also told to see if the provider's office had Dexcom G7 sensor samples to provide until his shipment arrives so he does not have to drive out to [facility]. Patient verbalized understanding. documented in this encounterCinc[facility]03[facility] Telephone encounter Note * Telephone Encounter - Gaye Mata RN - 09/27/2024 1:22 PM EDT In error [facility]03-19-2025 Miscellaneous Notes* Telephone Encounter - Gaye Mata RN - 09/27/2024 1:22 PM EDT In error documented in this encounterCinc[facility]03[facility] Telephone encounter Note * Telephone Encounter - Yanique Griffin RN - 09/26/2024 8:38 AM EDT Pt is identified by name and birthdate: Yes Spouse calls states she has received several phone calls and has been on phone all morning trying to get through She was on the way to ER with her spouse but turned back around d/t all the phone calls - Apologized for confusion - Advised: Per Provider for her to take Manolo to ER. She has already called Report to their ER Agreeable [facility]03-18-2025 Miscellaneous Notes* Telephone Encounter - Yanique Griffin RN - 09/26/2024 8:38 AM EDT Pt is identified by name and birthdate: Yes Spouse calls states she has received several phone calls and has been on phone all morning trying to get through She was on the way to ER with her spouse but turned back around d/t all the phone calls - Apologized for confusion - Advised: Per Provider for her to take Manolo to ER. She has already called Report to their ER Agreeable * Telephone Encounter - Ayana Zavala APRN.CNP - 09/26/2024 8:29 AM EDT Provided report to [facility]. * Telephone Encounter - Erick Peguero LPN - 09/26/2024 8:18 AM EDT Left message on machine to call the office. * Telephone Encounter - Ramya Crandall RN - 09/26/2024 8:10 AM EDT Pt identified by name and Pt given message below Stated understanding will take pt to [facility] Advised to f/u with endo upon release When pt/ call for f/u please obtain permission to speak with re: results / medical info Pt was not available to obtain permission but based on emergency situation message was given to ( this will be documented in basics to obtain permission Sent back to endo as FYI Per chart review - appears is very involved in pt care - please document above to protect medical staff re : HIPAA in in basics in epic does attend ov ( see 09-25-2024) Will document this in epic/ basics * Telephone Encounter - Erick Peguero LPN - 09/26/2024 7:47 AM EDT Attempted to reach patient at both numbers listed in demo. Left urgent messages on both V M * Telephone Encounter - Ayana Zavala APRN.CNP - 09/26/2024 7:39 AM EDT Received page regarding critical lab result of glucose 614 mg/dL. 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 Please call patient and instruct him to be seen in the ER immediately. documented in this encounterC[facility] Telephone encounter Note * Telephone Encounter - Ayana Zavala APRN.CNP - 09/26/2024 8:29 AM EDT Provided report to [facility]. [facility]03-18-2025 Telephone encounter Note* Telephone Encounter - Erick Peguero LPN - 09/26/2024 8:18 AM EDT Left message on machine to call the office. [facility]03-18-2025 Telephone encounter Note* Telephone Encounter - Ramya Crandall RN - 09/26/2024 8:10 AM EDT Pt identified by name and Pt given message below Stated understanding will take pt to [facility] Advised to f/u with endo upon release When pt/ call for f/u please obtain permission to speak with re: results / medical info Pt was not available to obtain permission but based on emergency situation message was given to ( this will be documented in basics to obtain permission Sent back to endo as FYI Per chart review - appears is very involved in pt care - please document above to protect medical staff re : HIPAA in in basics in epic does attend ov ( see 09-25-2024) Will document this in epic/ basics [facility]03-18-2025 Telephone encounter Note* Telephone Encounter - Erick Peguero LPN - 09/26/2024 7:47 AM EDT Attempted to reach patient at both numbers listed in demo. Left urgent messages on both V M [facility]03-18-2025 Telephone encounter Note* Telephone Encounter - Ayana Zavala APRN.CNP - 09/26/2024 7:39 AM EDT Received page regarding critical lab result of glucose 614 mg/dL. 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 Please call patient and instruct him to be seen in the ER immediately. [facility]03-17-2025 Instructions* Patient Instructions* Ayana Zavala APRN.CNP - 09/25/2024 2:48 PM EDT Plan Basal 12am 0.05-->0.5 ICR 12am 20-->15 ISF 12am 60 BG Correction Threshold 12am 150 BG Target 12am 150 BACKUP INSULIN PLAN: Only use this if you are to be off of your insulin pump Do not resume your pump until 24 hours after your last Lantus dose Lantus 12 units daily Novolog 4 units with meals + sliding scale If Blood Glucose (mg/dL) is <150 Give 0 extra units 151-200 Give 1 extra unit 201-250 Give 2 extra units 251-300 Give 3 extra units 301-350 Give 4 extra units 351-400 Give 5 extra units >400 Give 6 extra units Check your blood glucose 4 times per day using CGM Glucose targets as: Fasting 80-130, before meals 100-130, and bedtime 100-150 mg/dL. Call the office with blood sugars less than 70 Follow up with me in 4 weeks documented in this encounterCinc[facility]03-[facility]-2025 NoteHNO ID: [id number] Author: AYANA ZAVALA APRN.CNP Service: ? Author Type: Nurse Practitioner Type: Progress Notes Filed: 09/26/2024 11:42 Note Text: Endocrinology Follow Up History of Present Illness Manolo Vickers is a 89 year old male presents today for follow up of DM Type 1. Here with . Patient previously on Omnipod DASH. He was upgraded to Omnipod 5 on 09/04/24. He reports blood sugars have been very elevated recently. He is having polydipsia and polyuria. His Dexcom G7 is not connected with his pump currently. He reports remembering to put his sensor code in when he last changed this so is confused why that did not work. Reports he ran out of Novolog for his pump on Wednesday but he did have Novolog pens at home so did use this in the meantime, but was able to picking machine operator helper Novolog on 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 He did not use any backup Lantus, although he still has this at home. He was not entering in carbs until he was contacted by CDE on Wednesday instructing him he needs to do this. He was only entering in correction. has been helping him to count carbs. He denies any acute changes in appetite, nausea, or vomiting. He is generally feeling fatigued. 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 No history of diabetes prior to this. He reports taking Lantus 12 units daily at bedtime in addition to his pump and has been doing this for awhile. He takes manual boluses for breakfast, lunch and dinner (10-8-7 units). He does not know how to carb count. He has significant fluctuations in his blood sugar, with frequent hypoglycemia typically overnight. He is eating more frequently to keep his glucose up and then having elevations later in the day. EMS has been called several times due to his low glucose. He does not have warning symptoms of his low blood sugars. Family reports they can usually have him correct with juice or honey but he is sometimes confused during low blood sugar episodes. Date of Diagnosis: 2019 Last HbA1c: Hemoglobin A1C (POCT) (%) Date Value 07/06/2024 10.1 Family history of diabetes includes none. Complications Microvascular: none Macrovascular: CAD s/p PCI Comorbidities: HTN, COPD, CAD, ICM, BPH, IPMN, pancreatitis Diabetic Foot and Retinal Eye Exam not Overdue Prior DM Medications: Jardiance- stopped by cardiology Current DM Related Medications: Current Medications 09/25/2024 DIABETES THERAPIES Medication Dosage Pharm Subclass insulin aspart U-100 (NOVOLOG U-100 INSULIN ASPART) 100 unit/mL ADMINISTER PER PUMP (MAX DAILY 60 UNITS) Insulin Analogs - Rapid Acting insulin glargine (LANTUS) 100 unit/mL injection In case of pump failure Insulin Analogs - Long Acting CARDIOVASCULAR Medication Dosage Pharm Subclass lisinopril 2.5 mg tablet Take 2.5 mg by mouth. MIS Inhibitors metoprolol succinate ER (TOPROL XL) 50 mg 24 hr tablet Take 1 tablet by mouth every 12 hours. Beta Blockers Cardiac Selective ANTI-PLATELET THERAPIES Medication Dosage Pharm Subclass aspirin, enteric coated (ASPIRIN, ENTERIC COATED) 81 mg EC tablet Take 81 mg by mouth once daily. Salicylate Analgesics ASPIRIN Medication Dosage Pharm Subclass aspirin, enteric coated (ASPIRIN, ENTERIC COATED) 81 mg EC tablet Take 81 mg by mouth once daily. Salicylate Analgesics OTHER Medication Dosage Pharm Subclass cetirizine (ZYRTEC) 10 mg tablet Take 10 mg by mouth once daily. Antihistamines - 2nd Generation cholecalciferol (VITAMIN D-3) 2,000 unit tablet Take 2,000 Units by mouth once daily. Vitamins - D Derivatives folic acid/multivit-min/lutein (CENTRUM SILVER ORAL) Take by mouth once daily. Multivitamin and Mineral Combinations glucagon (GVOKE HYPOPEN 2-PACK) 1 mg/0.2 mL auto-injector Inject 1 mg subcutaneously as needed. Agents to treat Hypoglycemia (Hyperglycemics) insulin pump cart,auto,BT,G6/7 (OMNIPOD 5 G6-G7 PODS, GEN 5,) crtg Change every 72 hours. Medical Supply, [employer]DB Superset Lactobac no.41/Bifidobact no.7 (PROBIOTIC-10 ORAL) Take by mouth once daily. Intestinal Chayo Modifiers emffdd-zegkmpjk-nitpxlf (CREON) 24,000-76,000 -120,000 unit cpDR Take 2 capsules by mouth three times daily with meals. and 1 with snacks (8/day) Digestive Enzyme Mixtures lutein-zeaxanthin 25-5 mg cap Take by mouth once daily. Alternative Therapy - Antioxidant Omeprazole Magnesium 20 mg tablet Take 20 mg by mouth. Gastric Acid Secretion Chief Deputy Sheriff - Proton Pump Inhibitors (PPIs) PARoxetine (PAXIL) 40 mg tablet Take 40 mg by mouth every morning. Antidepressant - Selective Serotonin Reuptake Inhibitors (SSRIs) tamsulosin (FLOMAX) 0.4 mg Take 0.4 mg by mouth. Prostatic Hypertrophy Agent - bakbf-2-Vkjxrdaumvao Antagonists Physical Activity: No formal program Diet: CHO Controlled Diet SMBG Frequency of Monitoring: Four times a Day Not connected with pump (more content not included)...[facility] 09-25-2024 History of Present illness Narrative* Ayana Zavala APRN.[facility] - 09/25/2024 2:25 PM EDT Images from the original note were not included. Endocrinology Follow Up History of Present Illness Manolo Vickers is a 89 year old male presents today for follow up of DM Type 1. Here with . Patient previously on Omnipod DASH. He was upgraded to Omnipod 5 on 09/04/24. He reports blood sugars have been very elevated recently. He is having polydipsia and polyuria. HisDexcom G7 is not connected with his pump currently. He reports remembering to put his sensor code in when he last changed this so is confused why that did not work. Reports he ran out of Novolog for his pump on Wednesday but he did have Novolog pens at home so did use this in the meantime, but was able to picking machine operator helper Novolog on 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 He did not use any backup Lantus, although he still hasthis at home. He was not entering in carbs until he was contacted by CDE on Wednesday instructing him he needs to do this. He was only entering in correction. has been helping him to count carbs. He denies any acute changes in appetite, nausea, or vomiting. He is generally feeling fatigued. 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 No history of diabetes prior to this. He reports taking Lantus 12 units daily at bedtime in addition to his pump and has been doing this for awhile. He takes manual boluses for breakfast, lunch and dinner (10-8-7 units). He does not knowhow to carb count. He has significant fluctuations in his blood sugar, with frequent hypoglycemia typically overnight.He is eating more frequently to keep his glucose up and then having elevations later in the day. EMS has been called several times due to his low glucose. He does not have warning symptoms of his lowblood sugars. Family reports they can usually have him correct with juice or honey but he is sometimes confused during low blood sugar episodes. Date of Diagnosis: 2019 HbA1c: Hemoglobin A1C (POCT) (%) Date Value 07/06/2024 10.1 Family history of diabetes includes none. Complications Microvascular: none Macrovascular: CAD s/p PCI Comorbidities: HTN, COPD, CAD, ICM, BPH, IPMN, pancreatitis Diabetic Foot and Retinal Eye Exam not Overdue Prior DM Medications: Jardiance- stopped by cardiology Current DM Related Medications: Current Medications 09/25/2024 DIABETES THERAPIES Medication Dosage Pharm Subclass insulin aspart U-100 (NOVOLOG U-100 INSULIN ASPART) 100 unit/mL ADMINISTER PER PUMP (MAX DAILY 60 UNITS) Insulin Analogs - Rapid Acting insulin glargine (LANTUS) 100 unit/mL injection In case of pump failure Insulin Analogs - Long Acting CARDIOVASCULAR Medication Dosage Pharm Subclass lisinopril 2.5 mg tablet Take 2.5 mg by mouth. MIS Inhibitors metoprolol succinate ER (TOPROL XL) 50 mg 24 hr tablet Take 1 tablet by mouth every 12 hours. Beta Blockers Cardiac Selective ANTI-PLATELET THERAPIES Medication Dosage Pharm Subclass aspirin, enteric coated (ASPIRIN, ENTERIC COATED) 81 mg EC tablet Take 81 mg by mouth once daily. Salicylate Analgesics ASPIRIN Medication Dosage Pharm Subclass aspirin, enteric coated (ASPIRIN, ENTERIC COATED) 81 mg EC tablet Take 81 mg by mouth once daily. Salicylate Analgesics OTHER Medication Dosage Pharm Subclass cetirizine (ZYRTEC) 10 mg tablet Take 10 mg by mouth once daily. Antihistamines - 2nd Generation cholecalciferol (VITAMIN D-3) 2,000 unit tablet Take 2,000 Units by mouth once daily. Vitamins - D Derivatives folic acid/multivit-min/lutein (CENTRUM SILVER ORAL) Take by mouth once daily. Multivitamin and Mineral Combinations glucagon (GVOKE HYPOPEN 2-PACK) 1 mg/0.2 mL auto-injector Inject 1 mg subcutaneously as needed. Agents to treat Hypoglycemia (Hyperglycemics) insulin pump cart,auto,BT,G6/7 (OMNIPOD 5 G6-G7 PODS, GEN 5,) crtg Change every 72 hours. Medical Supply, FDB Superset Lactobac no.41/Bifidobact no.7 (PROBIOTIC-10 ORAL) Take by mouth once daily. Intestinal Chayo Modifiers yudftw-fgfhnfvh-opqxtgw (CREON) 24,000-76,000 -120,000 unit cpDR Take 2 capsules by mouth three times daily with meals. and 1 with snacks (8/day) Digestive Enzyme Mixtures lutein-zeaxanthin 25-5 mg cap Take by mouth once daily. Alternative Therapy - Antioxidant Omeprazole Magnesium 20 mg tablet Take 20 mg by mouth. Gastric Acid Secretion Chief Deputy Sheriff - Proton PumpInhibitors (PPIs) PARoxetine (PAXIL) 40 mg tablet Take 40 mg by mouth every morning. Antidepressant - Selective Serotonin Reuptake Inhibitors (SSRIs) tamsulosin (FLOMAX) 0.4 mg Take 0.4 mg by mouth. Prostatic Hypertrophy Agent - glcgf-4-UsuufnshtnldBmyeggbqazb Physical Activity: No formal program Diet: CHO Controlled Diet SMBG Frequency of Monitoring: Four times a Day Not connected with pump Pump Settings: Omnipod 5 Basal 12am 0.05 ICR 12am 20 ISF 12am 60 BG Correction Threshold 12am 150 BG Target 12am 150 TDD 10.2 units Basal 11%, Bolus 89% In Automated Mode 35% of the time Past History, Medications, Allergies History reviewed. No pertinent past medical history. PAST SURGICAL HISTORY Procedure Laterality Date APPENDECTOMY HX BACK SURGERY HX TONSILLECTOMY HX ALLERGIES No Known Allergies History reviewed. No pertinent family history. Social History Tobacco Use Smoking status: Former Current packs/day: 0.00 Types: Cigarettes Quit date: 03/15/2018 Years since quittin.5 Smokeless tobacco: Never Substance Use Topics Alcohol use: Yes Comment: social use Drug use: No Review of Systems GENERAL: No weight loss, malaise or fevers RESPIRATORY: Negative for cough, hemoptysis, wheezing, COPD, dyspnea or shortness of breath CARDIOVASCULAR: Negative for chest pain, leg swelling, CHF or palpitations GI: No nausea, vomiting, or diarrhea ENDOCRINE: Negative for cold or heat intolerance, polyuria, polydipsia and goiter NEUROLOGIC:Negative for focal numbness or weakness, headaches and dizziness or syncope. Physical examination BP 162/93 (BP Site: Left Arm, BP Position: Sitting, BP Cuff Size: Regular Adult) Pulse 60 Wt 63.1 kg (139 lb 1.8 oz) SpO2 100% BMI 19.96 kg/m General appearance: Well appearing, alert, in no acute distress, well-hydrated, well nourished. Skin: Skin color, texture, turgor normal, no suspicious rashes or lesions HEART: normal rate LUNGS: unlabored, normal respiratory rate EXTREMITIES No deformities, No skin discoloration and No edema NEURO: Speech normal, mental status intact, no tremor noted. Previous Laboratory Results LABS No results found for: GLUC , K , NA , CHLOR , CO2 , CREAT , BUN , ANION , CA , GFR , EGFRAA , EGFROTH ALT (U/L) Date Value 04/19/2018 12 TSH Date Value Ref Range Status 04/19/2018 0.874 0.400 - 5.500 uU/mL Final ALL BASIC METABOLIC PANEL Component Ref Range & Units 12 d ago SODIUM 136 - 145 mmol/L 139 POTASSIUM 3.5 - 5.1 mmol/L 4.3 CHLORIDE 98 - 107 mmol/L 99 CARBON DIOXIDE 21.0 - 32.0 mmol/L 31.2 ANION GAP 13.1 GLUCOSE 74 - 106 mg/dL 385 High BLOOD UREA NITROGEN 7.0 - 18.0 mg/dL 23 High CREATININE 0.70 - 1.30 mg/dL 1.31 High TBH EGFR-AF SENE[place] >=60 mL/min/1.73m 2 >60 TBH EGFR-NON AF [place] >=60 mL/min/1.73m 2 52 Low BUN CREATININE RATIO 17.6 CALCIUM 8.5 - 10.1 mg/dL 9 Resulting Agency [facility] Specimen Collected: 09/13/24 9:23 AM Performed by: [employer] Last Resulted: 09/13/24 10:54 AM Received From: [employer] Result Received: 09/25/24 2:18 PM Impression/Recommendations IMPRESSION Manolo Vickers is a 89 year old here for 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 RECOMMENDATIONS: 1. Glycemic control: Target HbA1C is less than 7.0% per ADA guidelines. This patient is not at target. He was transitioned to Omnipod 5 from Omnipod DASH on 09/04/24. Has been having hyperglycemia since transitioning. Current basal rate is set to 0.05 (on prior pump was set to 0.5, ordered to transition prior settings to new pump). Adjusted basal rate in office today along with ICR. He is appropriately entering in carbs since this was reinforced with him by CDE last week. He was however not in Automated Mode as his Dexcom sensor was not connected with his pump. This was updated today in the office as well. Expect improvements with updated settings and returning to Automated Mode. Will follow report closely over the next few days. I did have discussion with patient and of appropriateness of managing his diabetes with an insulin pump given knowledge gap in managing pump properly. When presenting the idea of switching to MDI, patient expressed he wishes to remain on the pump. Will continue to provide close follow up and support with our office and CDE but will need to readdress if safety in managing pump continues to darell concern. Will perform labs today. Discussed with patient and symptoms of DKA that should prompt immediate evaluation in ER. Back up insulin plan in case of pump failure reviewed with patient and he expressed understanding. Plan Basal 12am 0.05-->0.5 ICR 12am 20-->15 ISF 12am 60 BG Correction Threshold 12am 150 BG Target 12am 150 BACKUP INSULIN PLAN: Only use this if you are to be off of your insulin pump Do not resume your pump until 24 hours after your last Lantus dose Lantus 12 units daily Novolog 4 units with meals + sliding scale If Blood Glucose (mg/dL) is <150 Give 0 extra units 151-200 Give 1 extra unit 201-250 Give 2 extra units 251-300 Give 3 extra units 301-350 Give 4 extra units 351-400 Give 5 extra units >400 Give 6 extra units Check your blood glucose 4 times per day using CGM Glucose targets as: Fasting 80-130, before meals 100-130, and bedtime 100-150 mg/dL. Call the office with blood sugars less than 70 Follow up with me in 4 weeks Patient to continue to follow up with his PCP and with other consultants regarding his other medical problems. The patient was reminded to check their blood glucose as directed and to record the data in a logbook. This patient was advised to bring their logbook to each office visit. I recommended at least 150minutes per week of moderate physical activity, such as walking and to reduce carbohydrates and overall caloric intake. 2. Hypertension/BP control: BP goal for patients with diabetes is 130/80. -- This patient is at target on their current regimen. 3. Lipids: Target LDL cholesterol in patients with diabetes is less than 100, less than 70 if patient has overt CVD. Several studies have shown cardiovascular benefits of statin therapy in all patients with diabetes over age 40 with at least 1 CVD risk factor. No results found for: CHOL , HDL , LDL , TG LIPID PANEL (EXTERNAL) Order: [id number] Component Ref Range & Units Cholesterol 150 - 200 mg/dL 97 Low Triglycerides 27 - 150 mg/dL 38 HDL Cholesterol >39 mg/dL 50 VLDL 0 - 30 mg/dL 8 LDL (calc) <130 mg/dL 39 Cholesterol:HDL Ratio 1.0 - 5.0 1.9 Resulting Agency [facility] Specimen Collected: 01/22/24 6:06 AM Performed by: [email or web address] Last Resulted: 01/22/24 1:58 PM Received From: [email or web address] Result Received: 07/06/24 9:37 AM -- This patient is currently at target. Not on statin. 4. Nephropathy screening: Annual measurement of urine albumin excretion is recommended in patients with diabetes. No results found for: UALBCR , UPROT , UCR , UCRR , UALB -- UACR ordered. 5. Ophthalmology: Annual dilated eye exams are recommended for patients with type 1 and type 2 diabetes. -- Will address at follow up. Any part of this document that has been added/copied & pasted from other documents has been reviewed for accuracy and updated as appropriate at the time of the patient encounter Ayana Zavala APRN.[employer] (Signed electronically to expedite mailing) documented in [facility] Telephone encounter Note * Telephone Encounter - Gaye Mata RN - 09/22/2024 4:29 PM EDT Spoke with patient's regarding issues with Omnipod 5 and Glooko reports. Patient is still sleeping and does not have access to the Omnipod controller. She noted the pod had fallen off at some point and was laying next to the patient's bed. She will return call once he wakes up to reviewpump issues. [facility]03-14-[facility]25 Miscellaneous Notes* Telephone Encounter - Gaye Mata RN - 09/22/2024 4:29 PM EDT Spoke with patient's regarding issues with Omnipod 5 and Glooko reports. Patient is still sleeping and does not have access to the Omnipod controller. She noted the pod had fallen off at some point and was laying next to the patient's bed. She will return call once he wakes up to reviewpump issues. documented in this encounterC[facility] Telephone encounter Note * Telephone Encounter - Gaye Mata RN - 09/22/2024 3:39 PM EDT Patient's called back. Discussed Glooko report and asked about the pauses in pump use and consist high glucose numbers. Patient 's stated the pod fell off and they had no Novolog insulin vials to put insulin into the pump. Advised they do have Lantus insulin pens and Novolog insulin pens and use these as discussed in pump training as emergency back up in these instances where he does not have an active pod. Patient was also advised to enter his carbs for all his meals and snacks and ask for corrections. Patient stated at first he did not know to do that, then his said, yes you do. Reinforced importance and why carbs need to be entered as the pump does not know when he eats and he will have elevated blood sugars unless he enters the carbs in the pump and asks for corrections when needed. Educator asked patient to check his Dexcom 7 eliane and do a fingerstick to confirm blood glucose - adivsed it reads HIGH . Educator asked several times if he gave himself insulin today from the pens and got different answers. He said he did not give the evening dose of Lantus last night, and gave 12units of the Novolog at his late breakfast today. Advised patient to continue to use back up pens and dosing until pod is reapplied. Message sent to provider to send in script for Novolog insulin vials. Patient and told to keepappointment on 09/25/24 with Ayana Zavala APRN, CNP to review pump settings and reinforce education. [facility]03[facility] Miscellaneous Notes* Telephone Encounter - Gaye Mata RN - 09/22/2024 3:39 PM EDT Patient's called back. Discussed Glooko report and asked about the pauses in pump use and consist high glucose numbers. Patient 's stated the pod fell off and they had no Novolog insulin vials to put insulin into the pump. Advised they do have Lantus insulin pens and Novolog insulin pens and use these as discussed in pump training as emergency back up in these instances where he does not have an active pod. Patient was also advised to enter his carbs for all his meals and snacks and ask for corrections. Patient stated at first he did not know to do that, then his said, yes you do. Reinforced importance and why carbs need to be entered as the pump does not know when he eats and he will have elevated blood sugars unless he enters the carbs in the pump and asks for corrections when needed. Educator asked patient to check his Dexcom 7 eliane and do a fingerstick to confirm blood glucose - adivsed it reads HIGH . Educator asked several times if he gave himself insulin today from the pens and got different answers. He said he did not give the evening dose of Lantus last night, and gave 12units of the Novolog at his late breakfast today. Advised patient to continue to use back up pens and dosing until pod is reapplied. Message sent to provider to send in script for Novolog insulin vials. Patient and told to keepappointment on 09/25/24 with Ayana Zavala APRN, CNP to review pump settings and reinforce education. documented in this encounterC[facility] History of Present illness Narrative* Gaye Mata RN - 09/04/2024 1:00 PM EST DIABETES SELF-MANAGEMENT EDUCATION AND SUPPORT FOLLOW-UP VISIT Type of Diabetes: Type 2 Location: [place] Type of visit: In person individual Types of DSMES: Initial/Comprehensive (add to or update ADA spreadsheet) PATIENT'S MAIN CONCERN TODAY: switch from Omnipod DASH with Dexcom G7 to Omnipod 5 with Dexcom g7 Support person present for education today: spouse Cognitive ability: Confused at times Forgetful, unable to remember Motivation to learn: Interested Learning barriers identified by educator: none Method of instruction: written, verbal, and demonstration DIABETES SELF-MANAGEMENT FINDINGS: Monitoring: using glucose meter for manual fingersticks, not connected to Omnipod DASH Type of visit: In person individual Patient started today on Omnipod 5 insulin pump. Type of training:upgrade from DASH If upgrade, patient was previously on the following pump:Omnipod DASH Pump programming done today by: patient with educator supervision Insulin information: Last long-acting insulin type, dose, and time: n/a on Omnipod DASH Temp basal rate set today:no temp basal set today Temp basal duration set today:no temp basal set today Rapid-acting insulin loaded into pump today: Humalog U100 See phone encounter dated 07/06/25 for pump settings approved by provider and programmed into pump today. Name: Manolo Vickers Date of : 1935 Report Created: 09/04/2024 Date Range: Aug 22, 2024 - Sep 04, 2024 - - - - - - - - - - - - - - - - - - - - - - - - - - - SUMMARY - CGM GMI (CGM): N/A Average Glucose (CGM): HI mg/dL Median (CGM): HI mg/dL SD (CGM): 0 mg/dL CV (CGM): 0% % Time CGM Active: 3.4% (0 days) Highest (CGM): HI mg/dL Lowest (CGM): HI mg/dL CGM Average Daily Time in Range (mg/dL) % Readings < 54: 0% % Readings < 70: 0% % Readings 70-180: 0% % Readings > 180: 100% % Readings > 250: 100% SUMMARY - BG Average Glucose (BG): 350 mg/dL Median (BG): 350 mg/dL SD (BG): 0 mg/dL Readings/Day: 0.1 Highest (BG): 350 mg/dL Lowest (BG): 350 mg/dL BG Average % in Range (mg/dL) % Readings < 54: 0% % Readings < 70: 0% % Readings 70-180: 0% % Readings > 180: 100% % Readings > 250: 100% - - - - - - - - - - - - - - - - - - - - - - - - - - - TIME OF DAY - CGM Morning Afternoon Evening Night (5AM-10AM) (10AM-3PM) (3PM-9PM) (9PM-5AM) % Readings < 70 mg/dL: 0% 0% 0% 0% % Readings 70-180 mg/dL: 0% 0% 0% 0% % Readings > 180 mg/dL: 0% 100% 0% 0% Readings: 0 5 0 0 Average (mg/dL): 0 HI 0 0 SD (mg/dL): 0 0 0 0 TIME OF DAY - BG Morning Afternoon Evening Night (5AM-10AM) (10AM-3PM) (3PM-9PM) (9PM-5AM) % Readings < 70 mg/dL: 0% 0% 0% 0% % Readings 70-180 mg/dL: 0% 0% 0% 0% % Readings > 180 mg/dL: 0% 100% 0% 0% Readings: 0 1 0 0 Average (mg/dL): 0 350 0 0 SD (mg/dL): 0 0 0 0 - - - - - - - - - - - - - - - - - - - - - - - - - - - DEVICES Device Name: Insulet Omnipod 5 System Serial Number: [id number] Syn Date: 09/04/24 Device Time Offset (hh:mm): +00:00 Device Name: Insulet Omnipod Dash System Serial Number: [id number] Syn Date: 03/05/22 Device Time Offset (hh:mm): +00:00 Device Name: Insulet Omnipod Dash System Serial Number: [id number] Sync Date: 11/14/21 Device Time Offset (hh:mm): +00:00 Device Name: Insulet Omnipod DASH [place] Serial Number: Carley Desai Sync Date: 09/19/20 Device Time Offset (hh:mm): +00:00 Device Name: Insulet Omnipod Dash System Serial Number: [id number] Sync Date: 09/19/20 Device Time Offset (hh:mm): +00:00 - - - - - - - - - - - - - - - - - - - - - - - - - - - PUMP SETTINGS Basal1 - current Start Time Basal Rates Target BG Insulin to Carb Ratio Sensitivity (ISF) (Units/hr) (mg/dL) (g/Unit) (mg/dL/Unit) 12:00 AM 0.05 150 20 60 Total 1.2 Active Insulin Time: 3 hours Infusion set information: Infusion set name: Insulet Infusion set cannula length: 6 mm Infusion set insertion done today by:patient with educator supervision Infusion set inserted in left thigh Pre-pump training and pump safety information: Patient can demonstrate correct use of a carb ratio:No- patient is using set insulin amounts of 10 units breakfast, 8 units lunch, 7 units dinner. Patient was shown how to deliver a meal bolus or correction bolus by selecting use sensor on bolus calculator screen. Patient advised that if no number or arrow on the dashboard, do a manual fingerstick and enter that blood glucose number and pump will calculate correct dose of insulin. Patient shown how to add foods to the custom foods tab in the menu to create frequently eaten meals which will auto populate when selected in the bolus screen. Patient Verbalizes rules regarding when to change infusion set due to hyperglycemia: Yes Patient verbalizes importance of carrying a pump emergency kit:Yes Patient verbalizes back-up plan for pump failure:Yes - patient reminded not to take any long or short acting injections while on the insulin pump to avoid hypoglycemia Follow-up plan for glucose management given to patient: patient will upload pump for educator review in 3 day(s). Patient has numbers for Dexcom and Insulet in case of questions along with educator's contact info. Provider advised that patient is now connected to Omnipod 5 with Dexcom G7 sensor on controller Follow-up plan for education: Follow-up training needed:advanced pump features and carb counting review Follow-up training to be done via:in-person education visit Patient instructed to schedule follow-up training in 2-4 weeks. This is a non-billable encounter through [employer] but will be billed to the following pump company: n/a- pump upgrade, billed as DSME visit . This visit note will be communicated to the healthcare provider via access to shared medical record. I spent 120 minutes with this patient today. Gaye Mata RN Meal Planning: reviewed basic carb counting and foods that are considered carbs. Medications: currently on Omnipod DASH pump with Insulet infusion sets changes infusion sets q3 days see below for current pump settings Problem Solving: reviewed how to use new pump features and difference between DASH and Omnipod 5 using Dexcom G7 sensor Physical Activity: not discussed Reducing Risks: Discussed how to avoid hyper/hypoglycemia episodes while on an insulin pump Healthy Coping: not discussed INTERVENTIONS/TOPICS COVERED: -Diabetes Pathophysiology: insulin resistance -Monitoring: CGM adhesion techniques, CGM basics & daily use, CGM insertion steps, CGM type: Dexcom G7, and using a home glucose monitor -Healthy Eating: impact of carbs on BG, using an ICR to determine prandial insulin dosing, and how to use custom food feature with Omnipod 5 bolus calculator for commonly eaten foods and meals -Medications: site selection/rotation, vial/syringe injection instruction, reviewed home DM meds, prebolusing, and stacking insulin and how to prevent it Note: Patient did not know how to properly draw up insulin from a vial. Patient was not drawing up air first and then inserting into vial. Patient states he was never taught that . Patient states that sometimes he does not hear the two beeps when inserting insulin in the DASH pods. Advised that could mean he did not enter the minimum amount of insulin in the pod. Patient also states he did notknow to check for the pink box once the pod self injects. This was all reinforced in today's education with both patient and spouse. -Physical Activity: benefits of exercise and impact of exercise on BG -Acute Complications: hypoglycemia s/sx/tx, hyperglycemia s/sx/tx, risk for DKA on a pump, and hypoglycemia management on closed loop pumps -Chronic Complications: importance of BG control to reduce risks -Healthy Coping and Support: benefits of a support system, types of support (ex:family, friends, support groups, diabetes groups on social media) EDUCATION HANDOUTS: Healthy You: Survival Skills, Healthy You: Planning Healthy Meals, and Omnipod 5 podder central patient handouts, DKA prevention, new pump user video workshop flyer LEARNING RESPONSE: Diabetes pathophysiology: Demonstrated understanding/competency today or at previous visit Healthy eating: Needs further instruction/review Being active: Demonstrated understanding/competency today or at previous visit Taking medications: Demonstrated understanding/competency today or at previous visit Monitoring glucose: Demonstrated understanding/competency today or at previous visit Acute complications: Demonstrated understanding/competency today or at previous visit Chronic complications: Demonstrated understanding/competency today or at previous visit Healthy coping: Demonstrated understanding/competency today or at previous visit Diabetes distress and support: Demonstrated understanding/competency today or at previous visit GOAL FOLLOW-UP Patient will use Omnipod 5 custom foods feature and Dexcom G7 CGM sensor to help maximize blood glucose management within 4 weeks POSSIBLE FUTURE TOPICS: 1. The following topics were not assessed due to time limitations, but should be assessed at the next visit: sleep. 2. The following topics should be taught or reinforced at the next visit: healthy eating , being active, monitoring glucose, acute complications, and chronic complications. DIABETES EDUCATION PLAN: Individual follow-up Individual follow-up for patient selected goal(s) with dietitian and/or perinatal educator within 2-4 weeks/months via office visit, [employer] message, email, or phone call. Contactinformation provided to patient for perinatal educator. Educator to contact patient in 3 days on or about 09/07- after first pod change. Annual diabetes education follow up is important for helping you maintain healthy behaviors and achieve your treatment goals. Medicare programs cover 1 hr of 1:1 instruction and 9 hrs of group education the first year of diagnosis and up to 2 hours of follow up training each year after the initial Diabetes Self- Management Training (DSMT). Commercial insurances for diabetes education coverage may vary based on the plan requirements. Call [phone] to schedule a diabetes education follow up visit. Time Spent (Minutes): 120 This visit note will be communicated to the healthcare provider via access to shared medical record. SIGNATURE: Gaye Mata RN PATIENT NAME: Manolo Vickers DATE: September 04, 2024 TIME: 12:45 PM PAGER: documented in this encounterC[facility] NoteHNO ID: [id number] Author: GAYE MATA, RN Service: ? Author Type: Registered Nurse Type: Progress Notes Filed: 09/04/2024 15:22 Note Text: DIABETES SELF-MANAGEMENT EDUCATION AND SUPPORT FOLLOW-UP VISIT Type of Diabetes: Type 2 Location: [place] Type of visit: In person individual Types of DSMES: Initial/Comprehensive (add to or update ADA spreadsheet) PATIENT'S MAIN CONCERN TODAY: switch from Omnipod DASH with Dexcom G7 to Omnipod 5 with Dexcom g7 Support person present for education today: spouse Cognitive ability: Confused at times Forgetful, unable to remember Motivation to learn: Interested Learning barriers identified by educator: none Method of instruction: written, verbal, and demonstration DIABETES SELF-MANAGEMENT FINDINGS: Monitoring: using glucose meter for manual fingersticks, not connected to Omnipod DASH Type of visit: In person individual Patient started today on Omnipod 5 insulin pump. Type of training:upgrade from DASH If upgrade, patient was previously on the following pump:Omnipod DASH Pump programming done today by: patient with educator supervision Insulin information: Last long-acting insulin type, dose, and time: n/a on Omnipod DASH Temp basal rate set today:no temp basal set today Temp basal duration set today:no temp basal set today Rapid-acting insulin loaded into pump today: Humalog U100 See phone encounter dated 07/06/25 for pump settings approved by provider and programmed into pump today. Name: Manolo Vickers Date of : 1935 Report Created: 09/04/2024 Date Range: Aug 22, 2024 - Sep 04, 2024 - - - - - - - - - - - - - - - - - - - - - - - - - - - SUMMARY - CGM GMI (CGM): N/A Average Glucose (CGM): HI mg/dL Median (CGM): HI mg/dL SD (CGM): 0 mg/dL CV (CGM): 0% % Time CGM Active: 3.4% (0 days) Highest (CGM): HI mg/dL Lowest (CGM): HI mg/dL CGM Average Daily Time in Range (mg/dL) % Readings < 54: 0% % Readings < 70: 0% % Readings 70-180: 0% % Readings > 180: 100% % Readings > 250: 100% SUMMARY - BG Average Glucose (BG): 350 mg/dL Median (BG): 350 mg/dL SD (BG): 0 mg/dL Readings/Day: 0.1 Highest (BG): 350 mg/dL Lowest (BG): 350 mg/dL BG Average % in Range (mg/dL) % Readings < 54: 0% % Readings < 70: 0% % Readings 70-180: 0% % Readings > 180: 100% % Readings > 250: 100% - - - - - - - - - - - - - - - - - - - - - - - - - - - TIME OF DAY - CGM Morning Afternoon Evening Night (5AM-10AM) (10AM-3PM) (3PM-9PM) (9PM-5AM) % Readings < 70 mg/dL: 0% 0% 0% 0% % Readings 70-180 mg/dL: 0% 0% 0% 0% % Readings > 180 mg/dL: 0% 100% 0% 0% Readings: 0 5 0 0 Average (mg/dL): 0 HI 0 0 SD (mg/dL): 0 0 0 0 TIME OF DAY - BG Morning Afternoon Evening Night (5AM-10AM) (10AM-3PM) (3PM-9PM) (9PM-5AM) % Readings < 70 mg/dL: 0% 0% 0% 0% % Readings 70-180 mg/dL: 0% 0% 0% 0% % Readings > 180 mg/dL: 0% 100% 0% 0% Readings: 0 1 0 0 Average (mg/dL): 0 350 0 0 SD (mg/dL): 0 0 0 0 - - - - - - - - - - - - - - - - - - - - - - - - - - - DEVICES Device Name: Insulet Omnipod? 5 System Serial Number: [id number] Sync Date: 09/04/24 Device Time Offset (hh:mm): +00:00 Device Name: Insulet Omnipod Dash? System Serial Number: [id number] Sync Date: 03/05/22 Device Time Offset (hh:mm): +00:00 Device Name: Insulet Omnipod Dash? System Serial Number: [id number] Sync Date: 11/14/21 Device Time Offset (hh:mm): +00:00 Device Name: Insulet Omnipod DASH? [place] Serial Number: Insulet Dash Sync Date: 09/19/20 Device Time Offset (hh:mm): +00:00 Device Name: Insulet Omnipod Dash? System Serial Number: [id number] Sync Date: 09/19/20 Device Time Offset (hh:mm): +00:00 - - - - - - - - - - - - - - - - - - - - - - - - - - - PUMP SETTINGS Basal1 - current Start Time Basal Rates Target BG Insulin to Carb Ratio Sensitivity (ISF) (Units/hr) (mg/dL) (g/Unit) (mg/dL/Unit) 12:00 AM 0.05 150 20 60 Total 1.2 Active Insulin Time: 3 hours Infusion set information: Infusion set name: Insulet Infusion set cannula length: 6 mm Infusion set insertion done today by:patient with educator supervision Infusion set inserted in left thigh Pre-pump training and pump safety information: Patient can demonstrate correct use of a carb ratio:No- patient is using set insulin amounts of 10 units breakfast, 8 units lunch, 7 units dinner. Patient was shown how to deliver a meal bolus or correction bolus by selecting use sensor on bolus calculator screen. Patient advised that if no number or arrow on the dashboard, do a manual fingerstick and enter that blood glucose number and pump will calculate correct dose of insulin. Patient shown how to add foods to the custom foods tab in the menu to create frequently eaten meals which will auto populate when selected in the bolus screen. Patient Verbalizes rules regarding when to change infusion set due to hyperglycemia: Yes Patient (more content not included)...[facility]02-20-2025 Telephone encounter Note* Telephone Encounter - Gaye Mata RN - 08/31/2024 11:57 AM EST Spoke with patient's regarding Omnipod 5 insulin pump start with Dexcom G7 on 09/04/24 at 1 pm.Patient is currently using DASH with reader. Advised to make sure patient brings his insulin, all login passwords for Omnipod, Glooko, and Dexcom G7, his smartphone, Omnipod 5 controller phone fully charged and updated if needed so the pump start will go smoothly. requested email resent to her with instructions on day of training information to [employer] [facility]02-20-2025 Miscellaneous Notes* Telephone Encounter - Gaye Mata RN - 08/31/2024 11:57 AM EST Spoke with patient's regarding Omnipod 5 insulin pump start with Dexcom G7 on 09/04/24 at 1 pm.Patient is currently using DASH with reader. Advised to make sure patient brings his insulin, all login passwords for Omnipod, Glooko, and Dexcom G7, his smartphone, [employer] USAipod 5 controller phone fully charged and updated if needed so the pump start will go smoothly. requested email resent to her with instructions on day of training information to [employer] documented in this encounterC[facility] History of Present illness Narrative* Marie Castro, - 08/30/2024 1:30 PM EST Images from the original note were not included. Subjective Manolo Vickers is a 89 y.o. male who presents for One Month OV (Patient had his Lasix cut in half for his Dizziness. Today reports his dizziness is still the same as when he was last here. He will need another script of Lasix if he is to continue this medication.) and Off balance (Patient reports this is not getting any better. He feels like he is walking slow but doing poorly) History of Present Illness The patient presents for evaluation of diabetes, heart failure, cough, asthma, and orthostatic hypotension. Here with his He has been experiencing an improvement in his overall health status following the discontinuation of several medications. He has been managing his diabetes with the assistance of a healthcare professional from the [facility], who has introduced a new monitor that simplifies carbohydrate counting. Today, he experienced a hypoglycemic episode while driving, characterized by a sensation of instability. He was able to restore his blood glucose levels by consuming orange juice. He currently uses an insulin pump tiffanie G7 sensor for glucose monitoring. He is scheduled to receive a new device next month. He has beencommunicating with his healthcare team via [employer] and reports no feelings of depression. He has been experiencing a persistent cough for the past 2 to 3 months, which is productive of yellowish phlegm. He reports no symptoms of wheezing, shortness of breath, postnasal drainage, or sinus complaints.No fevers/chills/night sweats/nausea/headache/body aches/chest pain He has been cautious going from sit to stand and stands for a minute ambulating. No falls He has a known history of heart failure, with an ejection fraction of 30 to 35 percent. He does nothave an AICD in place. He has previously been on spironolactone, Jardiance, but these were discontinued due to their impact on his blood pressure. He is scheduled to see Dr Anat Ramirez tomorrow. Supplemental Information His abscess has resolved. ALLERGIES The patient has no known allergies. IMMUNIZATIONS He is up to date with his immunizations. Review of Systems Objective 140/80 seated Standing 126/74 asymptomatioc Physical Exam The patient appears well and does not appear to be ill. No jugular venous distention (JVD) in the neck. Lungs are clear both anteriorly and posteriorly. Heart has a regular rhythm and rate. Soft PAULA apex Extremities are without edema. Sit to stand is brisk. Vital Signs Blood pressure is 140/80 when seated and 126/74 when standing. It was 126/80. Results Testing Assessment & Plan 1. 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 He is currently under the care of a diabetic specialist at the [facility] and is managing well without any episodes of hypoglycemia. He is utilizing an insulin pump and a continuous glucose monitoring device, with plans to upgrade to a device with cross-talk capabilities. The importance of maintaining regular communication with his specialist, particularly in the event of hypoglycemic episodes, was emphasized. 2. Systolic congestive heart failure. His ejection fraction is between 30 to 35 percent, accompanied by mild mitral regurgitation, placing him in the [place] Heart [employer] class 1/2. He is currently on a regimen of lisinopril 2.5 mgdaily, Lasix 20 mg daily, and metoprolol 12.5 mg twice daily. Previous attempts to initiate guideline-directed therapy resulted in severe orthostatic hypotension, necessitating a reduction in medication. He has an AICD in place. He is scheduled for a cardiology appointment tomorrow. The initiation of Farxiga 10 mg daily was recommended, and a 2-month supply of samples was provided. Lasix will be temporarily discontinued. The plan involves weekly visits to either the cardiology department or ouroffice for blood pressure monitoring and gradual addition of therapy as tolerated. Once all guideline-directed therapies are in place, dose adjustments will be made. 3. Cough. He has been experiencing a cough productive of yellowish phlegm for the past 2 months. There are noassociated symptoms such as wheezing, shortness of breath, postnasal drainage, or sinus complaints.A bacterial superinfection of the lower respiratory system is suspected. Doxycycline 100 mg twice daily for 5 days was recommended. He is advised to contact us if there is any worsening of symptoms or if there is no resolution within the next week. 4. Asthma. He has a long-standing history of asthma and has been using an inhaler for management. He ran out of his inhaler while in [place] and was unable to refill it at the local pharmacy. He has been without his inhaler for a couple of weeks but reports no exacerbation of wheezing or coughing. He is currently on Singulair for asthma management. 5. Orthostatic hypotension. He has been experiencing orthostatic changes in blood pressure, necessitating a pause after standing up from a seated position. He is currently on a regimen of lisinopril and metoprolol. 6. Health maintenance. Prevnar 20 vaccine will be administered today. PROCEDURE The patient has an AICD in place. Diagnosis Plan 1. Abdominal wall abscess completely resolved surgical site well healed no sequelae 2. Acquired total absence of pancreas 3. Insulin pump in place 4. Lower respiratory infection 5. 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 Chronic systolic CHF (congestive heart failure), NYHA class 2 ([facility]/HCC) 9. Nonrheumatic mitral valve regurgitation 10. Pancreatic insufficiency (CMS/HCC) 60' documented in this encounterSoutheast Missouri Community Treatment [id number] Telephone encounter Note* Telephone Encounter - Lit Goodwin MA - 08/15/2024 11:55 AM EST Form completed, faxed, confirmation received. Sent for scan. [facility]02-04-2025 Miscellaneous Notes* Telephone Encounter - Lit Goodwin MA - 08/15/2024 11:55 AM EST Form completed, faxed, confirmation received. Sent for scan. * Telephone Encounter - Lit Goodwin MA - 08/15/2024 10:23 AM EST Received a fax from [employer] for a physician's order. Placed on Convore's desk for signature on form and chart notes. documented in this encounterCincinnati [facility] Center02-04-2025 Telephone encounter Note * Telephone Encounter - Lit Goodwin MA - 08/15/2024 10:23 AM EST Received a fax from [employer] for a physician's order. Placed on Convore's desk for signature on form and chart notes. [facility]01-29-2025 Telephone encounter Note* Telephone Encounter - Sheryl Ny MA - 08/09/2024 10:38 AM EST A form has been received from [employer] for [facility] note. Faxed [facility] note 07/06/24 to [phone]. Confirmation received. [facility]01-29-2025 Miscellaneous Notes* Telephone Encounter - Sheryl Ny MA - 08/09/2024 10:38 AM EST A form has been received from [employer] for [facility] note. Faxed [employer] note 07/06/24 to [phone]. Confirmation received. documented in this encounterCinc[facility] Center01-14-2025 NoteHNO ID: [id number] Author: GAYE MATA RN Service: ? Author Type: Registered Nurse Type: Progress Notes Filed: 07/25/2024 17:09 Note Text: DIABETES CARE AND EDUCATION VISIT Location: [place] Type of visit: In person individual PATIENT'S MAIN CONCERN TODAY: switch Omnipod DASH to Omnipod 5 insulin pump with Dexcom g7 Support person present for education today: spouse Cognitive ability: Forgetful, unable to remember Motivation to learn: Interested Learning barriers identified by educator: forgetful, unable to remember passwords for log ins, did not bring insulin to appointment, unable to start Omnipod 5 insulin pump during this visit. Method of instruction: written and verbal DIABETES FINDINGS: Monitoring: wearing Dexcom G7 with reader Meal Planning: patient not carb counting, using set carb amounts at meals Medications: currently on Omnipdo DASH pump with Insulet infusion sets changes infusion sets q3days see below for current pump settings Name: Manolo Vickers Date of : 1935 Report Created: 07/25/2024 Date Range: Jun 23, 2024 - Jul 06, 2024 - - - - - - - - - - - - - - - - - - - - - - - - - - - SUMMARY - BG Average Glucose (BG): 158 mg/dL Median (BG): 136 mg/dL SD (BG): 89 mg/dL Readings/Day: 2.1 Highest (BG): 390 mg/dL Lowest (BG): 42 mg/dL BG Average % in Range (mg/dL) % Readings < 54: 7% % Readings < 70: 14% % Readings 70-180: 48% % Readings > 180: 38% % Readings > 250: 10% - - - - - - - - - - - - - - - - - - - - - - - - - - - TIME OF DAY - BG Morning Afternoon Evening Night (5AM-10AM) (10AM-3PM) (3PM-9PM) (9PM-5AM) % Readings < 70 mg/dL: 22% 10% 10% 0% % Readings 70-180 mg/dL: 78% 30% 40% 0% % Readings > 180 mg/dL: 0% 60% 50% 0% Readings: 9 10 10 0 Average (mg/dL): 97 181 191 0 SD (mg/dL): 28 75 113 0 - - - - - - - - - - - - - - - - - - - - - - - - - - - INSULIN - DEVICE From insulin pump Insulin/Day: 30.8 units Overrides (%): 0% (0 boluses) # Bolus/Day: 2.3 Bolus %/Day: 63% Basal %/Day: 37% Average Bolus: 8.4 units Correction Bolus/Day: 0 (0%) - - - - - - - - - - - - - - - - - - - - - - - - - - - DEVICES Device Name: Carley Desai? System Serial Number: [id number] Sync Date: 07/06/24 Device Time Offset (hh:mm): +00:00 - - - - - - - - - - - - - - - - - - - - - - - - - - - PUMP SETTINGS Basal 1 - current Start Time Basal Rates Target BG Insulin to Carb Ratio Sensitivity (ISF) (Units/hr) (mg/dL) (g/Unit) (mg/dL/Unit) 12:00 AM 0.5 150 20 60 Total 12 Active Insulin Time: 3.5 hours Problem Solving: not discussed Physical Activity: not discussed Reducing Risks: discussed hypo/hyperglycemia treatment while on insulin pumps Healthy Coping: not discussed INTERVENTIONS/TOPICS COVERED: -Monitoring: CGM basics AND daily use and CGM type: [employer] with reader. Patient understand he will need to download Dexcom G7 eliane on his Iphone SE. Patient unable to recall log in for Dexcom eliane. Patient downloaded G6 eliane, not G7 eliane. Educator needed to call [employer] for assistance in resetting password as patient unable to get into his email to obtain code to reset. -Medications: reviewed home DM meds, basal insulin, prandial insulin, prebolusing, stacking insulin and how to prevent it, injectable insulin discussed: using Omnipod DASH with Dexcom G7 controller, and insulin pump instruction: pump benefits , pump requirements of user, pump limitations , infusion set rotation, activity mode, and insulin pump terminology: basal, bolus, carb ratio, BG target, uakrvrn-fm-kmswe/duration, and patient did not bring insulin vials with him so we were unable to start pump today. Patient and leaving for [place] for a month tomorrow and has rescheduled pump start visit for 09/04/24. -Acute Complications: hypoglycemia s/sx/tx, hyperglycemia s/sx/tx, and traveling with diabetes HANDOUTS: None LEARNING RESPONSE: Healthy eating: Needs further instruction/review Taking medications: Demonstrated understanding/competency today or at previous visit Monitoring glucose: Demonstrated understanding/competency today or at previous visit Acute complications: Demonstrated understanding/competency today or at previous visit POSSIBLE FUTURE TOPICS: 1. Patient and to return after [place] trip to start Omnipod 5 switch from DASH. Patient advised to remember to bring insulin vials, Omnipod 5 pods, phone, controller, and Omnipod ID login and password to next visit. DIABETES CARE AND EDUCATION PLAN: Individual follow-up Patient does not have MyChart. Email sent prior to today's visit on what to bring to appointment. Patient did not read instructions and did not bring insulin vials or have eliane downloaded on Iphone for Dexcom G7 as he will not be able to use reader. Patient will need additional education on carb counting. Time Spent (Minutes): 60 This visit note tapan (more content not included)...[facility] 07-25-2024 History of Present illness Narrative* Gaye Mata RN - 07/25/2024 1:04 PM EST DIABETES CARE AND EDUCATION VISIT Location: [place] Type of visit: In person individual PATIENT'S MAIN CONCERN TODAY: switch Omnipod DASH to Omnipod 5 insulin pump with Dexcom g7 Support person present for education today: spouse Cognitive ability: Forgetful, unable to remember Motivation to learn: Interested Learning barriers identified by educator: forgetful, unable to remember passwords for log ins, did not bring insulin to appointment, unable to start Omnipod 5 insulin pump during this visit. Method of instruction: written and verbal DIABETES FINDINGS: Monitoring: wearing Dexcom G7 with reader Meal Planning: patient not carb counting, using set carb amounts at meals Medications: currently on Omnipdo DASH pump with Insulet infusion sets changes infusion sets q3days see below for current pump settings Name: Manolo Vickers Date of : 1935 Report Created: 07/25/2024 Date Range: Jun 23, 2024 - Jul 06, 2024 - - - - - - - - - - - - - - - - - - - - - - - - - - - SUMMARY - BG Average Glucose (BG): 158 mg/dL Median (BG): 136 mg/dL SD (BG): 89 mg/dL Readings/Day: 2.1 Highest (BG): 390 mg/dL Lowest (BG): 42 mg/dL BG Average % in Range (mg/dL) % Readings < 54: 7% % Readings < 70: 14% % Readings 70-180: 48% % Readings > 180: 38% % Readings > 250: 10% - - - - - - - - - - - - - - - - - - - - - - - - - - - TIME OF DAY - BG Morning Afternoon Evening Night (5AM-10AM) (10AM-3PM) (3PM-9PM) (9PM-5AM) % Readings < 70 mg/dL: 22% 10% 10% 0% % Readings 70-180 mg/dL: 78% 30% 40% 0% % Readings > 180 mg/dL: 0% 60% 50% 0% Readings: 9 10 10 0 Average (mg/dL): 97 181 191 0 SD (mg/dL): 28 75 113 0 - - - - - - - - - - - - - - - - - - - - - - - - - - - INSULIN - DEVICE From insulin pump Insulin/Day: 30.8 units Overrides (%): 0% (0 boluses) # Bolus/Day: 2.3 Bolus %/Day: 63% Basal %/Day: 37% Average Bolus: 8.4 units Correction Bolus/Day: 0 (0%) - - - - - - - - - - - - - - - - - - - - - - - - - - - DEVICES Device Name: Insulet [employer] System Serial Number: [id number] Sync Date: 07/06/24 Device Time Offset (hh:mm): +00:00 - - - - - - - - - - - - - - - - - - - - - - - - - - - PUMP SETTINGS Basal 1 - current Start Time Basal Rates Target BG Insulin to Carb Ratio Sensitivity (ISF) (Units/hr) (mg/dL) (g/Unit) (mg/dL/Unit) 12:00 AM 0.5 150 20 60 Total 12 Active Insulin Time: 3.5 hours Problem Solving: not discussed Physical Activity: not discussed Reducing Risks: discussed hypo/hyperglycemia treatment while on insulin pumps Healthy Coping: not discussed INTERVENTIONS/TOPICS COVERED: -Monitoring: CGM basics & daily use and CGM type: [employer] with reader. Patient understand he will need to download [employer] eliane on his Iphone SE. Patient unable to recall log in for [employer] eliane. Patient downloaded G6 eliane, not G7 eliane. Educator needed to call [employer] for assistance in resetting password as patient unable to get into his email to obtain code to reset. -Medications: reviewed home DM meds, basal insulin, prandial insulin, prebolusing, stacking insulinand how to prevent it, injectable insulin discussed: using [employer] with [employer] G7 controller, and insulin pump instruction: pump benefits , pump requirements of user, pump limitations , infusionset rotation, activity mode, and insulin pump terminology: basal, bolus, carb ratio, BG target, dlsmcle-yw-hvpch/duration, and patient did not bring insulin vials with him so we were unable to start pump today. Patient and leaving for [place] for a month tomorrow and has rescheduled pump startvisit for 09/04/24. -Acute Complications: hypoglycemia s/sx/tx, hyperglycemia s/sx/tx, and traveling with diabetes HANDOUTS: None LEARNING RESPONSE: Healthy eating: Needs further instruction/review Taking medications: Demonstrated understanding/competency today or at previous visit Monitoring glucose: Demonstrated understanding/competency today or at previous visit Acute complications: Demonstrated understanding/competency today or at previous visit POSSIBLE FUTURE TOPICS: 1. Patient and to return after [place] trip to start Omnipod 5 switch from DASH. Patient advised to remember to bring insulin vials, Omnipod 5 pods, phone, controller, and Omnipod ID login and password to next visit. DIABETES CARE AND EDUCATION PLAN: Individual follow-up Patient does not have MyChart. Email sent prior to today's visit on what to bring to appointment. Patient did not read instructions and did not bring insulin vials or have eliane downloaded on Iphone for Dexcom G7 as he will not be able to use reader. Patient will need additional education on carb counting. Time Spent (Minutes): 60 This visit note will be communicated to the healthcare provider via access to shared medical record. SIGNATURE: Gaye Mata RN PATIENT NAME: Manolo Vickers DATE: July 25, 2024 TIME: 2:52 PM PAGER: n/a documented in this encounterCinc[facility] Center01-10-2025 Telephone encounter Note * Telephone Encounter - Gaye Mata RN - 07/21/2024 12:09 PM EST In error - patient does not have [employer] set up, status still PENDING. Patient's sent text with code again to create account [facility]01-10-2025 Miscellaneous Notes* Telephone Encounter - Gaye Mata RN - 07/21/2024 12:09 PM EST In error - patient does not have MyChart set up, status still PENDING. Patient's sent text with code again to create account documented in this encounterCinc[facility] Center01-09-2025 History of Present illness Narrative* Yomi E Chiki, THREAD CHECKER - 07/20/2024 10:00 AM EST Images from the original note were not included. Manolo Vickers is a 89 y.o. male presents with chief complaint of Hospital Follow-up HPI: HPI Seeing Ayana Zavala as endocrinology through [facility]. Had I and D of abdominal wall abscess done Dr. Sheridan in June. Family is questioning if Lasix needs to be continued. PFTS ordered in February of 2024. Spirometry was normal but the rest of the test was unable to be completed. History of Present Illness The patient presents for evaluation of chest pain, cough, dizziness, and hypertension. He experienced an episode of chest pain on 07/16/2024, which was exacerbated by deep inhalation andpalpitations. This led to a hospital visit where a scan was performed to exclude the possibility ofa pulmonary embolism. The initial suspicion was heart failure, but subsequent tests revealed no abnormalities. He has a pacemaker and defibrillator in place. He reports no current pain or respiratorydistress. He was also evaluated for bronchitis during his hospital stay, which necessitated an overnight observation period. He was prescribed Lasix, to be taken daily at 8 AM, due to suspected fluid accumulation around his lungs. He has been compliant with this medication. He has a scheduled appointment with his spa manager, Dr. Coppola, in the coming weeks. He admits to feeling off balance with changes in position. He has been experiencing a persistent cough and rhinorrhea. He does not own an albuterol inhaler and has never used one. He has not been diagnosed with COPD. He experiences dyspnea upon exertion, such as climbing stairs. He does not monitor his blood pressure at home. He reports no presyncope but experiences dizziness upon standing. Supplemental Information He is under the care of an loan secretary, Dr. Awa Zavala, at [facility]. He is recovering well from an I and D of his abdominal wall. ALLERGIES The patient has no known allergies. MEDICATIONS Current: Tylenol, aspirin 81 mg, Lipitor 80 mg, vitamin D, insulin pump, lactobacilli (probiotic), lisinopril 2.5 mg, metoprolol 12.5 mg twice a day, multivitamin, nitroglycerin (as needed), paroxetine 40 mg, Lasix, omeprazole. Discontinued: Lantus, Keflex, NovoLog FlexPen. I have reviewed and reconciled the history and medication list with the patient today. HISTORIES: PAST MEDICAL HISTORY: Past Medical History: Diagnosis Date Anastomotic ulcer Anxiety BPH (benign prostatic hyperplasia) COPD (chronic obstructive pulmonary disease) ([facility]) Diabetes mellitus ([facility]/HCC) 10/04/2019 Ground glass opacity present on imaging of lung 02/05/2023 Hypertension ([facility]/HCC) ICD (implantable cardioverter-defibrillator) in place IPMN (intraductal papillary mucinous neoplasm) 06/23/2018 Added automatically from request for surgery [id number] Left ventricular dysfunction Lumbar spondylosis OA (osteoarthritis) Pancreatitis Hospitalized Rotator cuff tendonitis SURGICAL HISTORY: Past Surgical History: Procedure Laterality Date APPENDECTOMY 1948 CERVICAL DISCECTOMY [address] ANGIOGRAM HEART CORONARY 01/21/2024 CT ANGIOGRAM TAVR 01/21/2024 FINE NEEDLE ASPIRATION 04/2018 HEART CATH 04/2023 heart cath HIP SURGERY Right 04/2023 right hip surgery OTHER SURGICAL HISTORY 04/2024 ICD placement OTHER SURGICAL HISTORY abdominal I & D PARTIAL HIP ARTHROPLASTY Right 04/12/2023 TX TONSILLECTOMY & ADENOIDECTOMY <AGE 14 SPLENECTOMY, 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 V' Blum VASECTOMY 1989 SOCIAL HISTORY: Social History Tobacco Use Smoking status: Former Average packs/day: 0.3 packs/day for 30.0 years (7.5 ttl pk-yrs) Types: Cigarettes Start date: 07/12/1947 Smokeless tobacco: Never Tobacco comments: Has a history of cessation from smokin02/09/2018 Substance Use Topics Alcohol use: Yes Alcohol/week: 5.0 standard drinks of alcohol Types: 5 Glasses of wine per week Drug use: Never Depression: Not at risk (04/17/2024) PHQ-2 PHQ-2 Score: 0 Recent Concern: Depression - At risk (01/21/2024) Received from [employer] PHQ-2 Total Score: 3 FAMILY HISTORY: Family History Problem Relation Name Age of Onset Stroke Mother Ana No Known Problems Father at age 82 Leukemia Sister Carol at age 33 from leukemia Cancer Sister Carol Cancer Brother at age 75 from possible unknown cancer Other (synovial cell cancer) Son Cancer Son Saúl MEDICATIONS: Current Outpatient Medications Medication Instructions Acetaminophen Extra Strength 500 MG tablet Daily albuterol HFA (ProAir HFA) 90 mcg/act inhaler 2 puffs, Inhalation, Every 4 hours PRN aspirin 81 mg, Daily atorvastatin (LIPITOR) 80 mg, Daily cholecalciferol (Vitamin D-3) 50 MCG (1999 UT) tablet Daily furosemide (LASIX) 10 mg, Oral, Daily glucose blood (Contour Next Test) test strip 1 each, Other, 3 times daily before meals, Use as instructed Insulin Disposable Pump (Omnipod DASH PDM, Gen 4,) kit Basal: 12A 0.3, 7A 0.4, 9P 0.5, 10 units breakfast, 8 units with lunch, 7 dinner, ISF: 75 Lactobacillus (Probiotic Acidophilus) capsule 1 capsule, Every 24 hours lisinopril 2.5 mg, Daily metoprolol succinate XL (TOPROL-XL) 12.5 mg, 2 times daily Multiple Vitamins-Minerals (Centrum Silver 50+Men) tablet 1 tablet, Daily nitroglycerin (NITROSTAT) 0.4 mg pancrelipase, Vej-Ffru-Uwmu, (Creon) 30532-75513 units capsule TAKE 2 CAPSULES BY MOUTH DAILY WITH MEALS AND 1 CAPSULE BY MOUTH WITH SNACKS DIRECTED PARoxetine (PAXIL) 40 mg, Oral, Every morning ALLERGIES: No Known Allergies PHYSICAL EXAM: Visit Vitals BP 122/60 Pulse 74 Wt 148 lb SpO2 92% BMI 21.24 kg/m Smoking Status Former BSA 1.82 m BP Readings from Last 3 Encounters: 07/20/24 122/60 06/19/24 118/62 05/30/24 130/80 Wt Readings from Last 3 Encounters: 07/20/24 148 lb 07/03/24 142 lb 06/19/24 142 lb Physical Exam Cardiovascular: Rate and Rhythm: Normal rate and regular rhythm. Heart sounds: Normal heart sounds. Pulmonary: Effort: Pulmonary effort is normal. Breath sounds: Normal breath sounds. Abdominal: General: Bowel sounds are normal. Palpations: Abdomen is soft. Musculoskeletal: Cervical back: Neck supple. Skin: General: Skin is warm. Neurological: Mental Status: He is alert. Mental status is at baseline. Psychiatric: Mood and Affect: Mood normal. Physical Exam Lungs were auscultated. Vital Signs The patient's weight is 148 pounds. Blood pressure is 122/60, 118/60 sitting and 105/55 standing. Results ASSESSMENT AND PLAN: Diagnosis Plan 1. Chronic systolic CHF (congestive heart failure), NYHA class 2 ([facility]) Basic metabolic panel Basic metabolic panel 2. Pancreatic insufficiency ([facility]) 3. History of bleeding peptic ulcer 4. Coronary arteriosclerosis ([facility]) 5. 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 Orthostatic hypotension 7. Bronchitis albuterol HFA (ProAir HFA) 90 mcg/act inhaler Assessment & Plan 1. CAD/CHF He experienced chest pain on July 16, which worsened with deep breaths and heartbeats. A scan ruled out a pulmonary embolism, and heart failure was not confirmed. The pain has since resolved. He was advised to continue monitoring his symptoms and follow up with his spa manager in a couple of weeks. Pain is not reproducible here. No pain with inspiration. Check BMP due to changes in Lasix doses. 2. Hypertension. His blood pressure readings were 122/60 mmHg, 118/60 mmHg sitting, and 105/55 mmHg standing. He is currently on Lisinopril 2.5 mg and Metoprolol 12.5 mg twice a day. The dosage of Lasix will be reduced to half a tablet to manage his blood pressure better and decrease frequent urination. He was advised to take it first thing in the morning. A follow-up appointment is scheduled for August 02 at 10AM to monitor his blood pressure and ensure it does not drop too low. 3. Cough/bronchitis He has been experiencing a persistent cough, which may be due to chronic smoking. He was not previously diagnosed with COPD. PFTs nondiagnositc. An albuterol inhaler will be prescribed for use duringsevere coughing episodes. 4. Orthostasis He reports dizziness, especially when standing up, which has been ongoing for quite a while. He hasa history of orthostasis. Systolic BP drops from 118 to 105 when standing up in the office today. Will decrease Lasix dose. May need to stop. He does not feel like he will pass out but needs to be careful when moving. The reduction in Lasix dosage is expected to help manage this symptom. Follow-up The patient will follow up on 08/02/2024 at 10:00 AM. PROCEDURE The patient has a pacemaker and defibrillator in place. He is recovering well from an I and D of his abdominal wall. documented in this encounterSoutheast Missouri Community Treatment [id number] Consult [place] [id number] Cardiology Consult Note Signed Patient: Manolo Vickers MR#: [id number] : 1935 Acct:[id number] Age/Sex: 89 / M Adm Date: 5 Loc: Room: [address] [place] [address] Type: ADM INOo Attending Dr: Lisa Hidalgo MD Copies to: MD Lisa Varner MD Robert J Vaschak,DO~ Cardiology HPI History of Present Illness Consult Date: 07/17/24 Reason for Consult: Chest pain HPI: Mr. Vickers is a 89 year old male with a past medical history below who presents to the hospital forchest pain. Pain was located in the lower chest wall. It wasworse on deep inspiration. It was unusual for him and lasted all day long. He did have an upper respiratory infection and has been coughinga lot. Workup in the hospital shows marginally elevated troponins of 32--29. His chest x-ray is completely normal. CTA chest was negative for PE, but does not show any pericardial effusion. There aremildly increased interstitial markings on the CTbut it is not suggestive of any significant CHF. Review of Systems Review of Systems All other systems reviewed & are negative unless noted below or in HPI [facility] Medical History Type 1 diabetes mellitus CAD (coronary artery disease) Former smoker BPH (benign prostatic hyperplasia) Urinary frequency Cardiomyopathy wearing external defib Coronary artery disease involving [place] coronary artery of [place] heart withoutangina pectoris GI bleeding Dupuytren's contracture of right hand Carpal tunnel syndrome of left wrist Cervical spine fracture Fracture of cervical spinous process Stomach ulcer previous rupture with repair. Melena Anxiety and depression Hypertension Protein-calorie malnutrition, mild BPH (benign prostatic hyperplasia) Surgical History AICD (automatic cardioverter/defibrillator) present History of bilateral cataract extraction History of appendectomy History of cardiac catheterization S/P PTCA (percutaneous transluminal coronary angioplasty) History of tonsillectomy History of resection of pancreas due to cysts of pancreas and weight loss History of back surgery 1985 H/O heart artery stent History of repair of hip fracture R side with 3 nails in. H/O splenectomy Family History Brother Cancer Son Sarcoma Mother No problems noted. Father No problems noted. Sister Leukemia Social History Smoking Status: Former smoker Tobacco Type: cigarettes Substance Use Type: None Substance Abuse Comment: Pt states he drinks 1 glass of wine every night Meds Medications and Allergies Allergies No Known Allergies Allergy (Verified 07/16/24 11:43) Home Medications aspirin 81 mg tablet,delayed release 81 mg PO DAILY 30 days #30 tabs 05/07/23 [Rx Confirmed 07/16/24] [id number]-lwfmatuy-oumsmdz 24,000-76,000-120,000 unit capsule,delayed rel (Creon) 2cap PO TID.WITH.MEALS 30 days #120 caps 05/07/23 [Rx Confirmed 07/16/24] nitroglycerin 0.4 mg sublingual tablet 0.4 mg sublingual Q5M PRN Chest Pain 30 days #30 tabs 05/07/23 [Rx Confirmed 07/16/24] acetaminophen 500 mg tablet 500 mg PO Q6HR PRN pain 08/31/23 [History Confirmed 06/16/24] insulin aspart U-100 100 unit/mL (3 mL) subcutaneous pen (Novolog FlexPen U-100 Insulin aspart) SeeProtocol subcut TID.WM.HS #0 mL 09/03/23 [Rx Confirmed 07/16/24] blood sugar diagnostic #120 ea 09/05/23 [Rx Confirmed 07/16/24] lancets #120 ea 09/05/23 [Rx Confirmed 07/16/24] pen needle, diabetic 32 gauge x 5/32 (BD Ultra-Fine Marichuy Pen Needle) #100 ea 09/05/23 [Rx Confirmed 07/16/24] cholecalciferol (vitamin D3) 100 mcg PO DAILY 10/26/23 [History Confirmed 07/16/24] loratadine 10 mg tablet (Claritin) 1 tab PO DAILY 10/26/23 [History Confirmed 07/16/24] lutein 6 mg capsule 6 mg PO DAILY 10/26/23 [History Confirmed 07/16/24] multivitamin with minerals-folic acid 12 mcg chewable tablet (Centrum Adults) 1 tab PO DAILY 10/26/23 [History Confirmed 07/16/24] qpojys-lpyxasgq-oipleki 24,000-76,000-120,000 unit capsule,delayed rel (Creon) 1cap PO TID PRN gastrointestinal spasms or cramping 02/05/24 [History Confirmed 07/16/24] paroxetine HCl 40 mg tablet 40 mg PO QAM 02/15/24 [History Confirmed 07/16/24] atorvastatin 80 mg tablet 80 mg PO QHS 90 days #90 tabs 02/28/24 [Rx Confirmed 07/16/24] lisinopril 2.5 mg tablet 2.5 mg PO QAM 05/16/24 [History Confirmed 07/16/24] omeprazole 20 mg capsule,delayed release 20 mg PO BID 05/16/24 [History Confirmed 07/16/24] tamsulosin 0.4 mg capsule 0.4 mg PO QPM 05/16/24 [History Confirmed 07/16/24] metoprolol succinate 25 mg tablet,extended release 24 hr 12.5 mg PO BID 07/16/24[History Confirmed 07/16/24] spironolactone 25 mg tablet 25 mg PO DAILY 07/16/24 [History Confirmed 07/16/24] furosemide 20 mg tablet 20 mg PO DAILY.8A #30 tabs 07/17/24 [Rx] insulin glargine 100 unit/mL (3 mL) subcutaneous pen (Lantus Solostar U-100 Insulin) 5 unit (0.05 mL) subcut QHS 10 days #0.5 mL 07/17/24 [Rx] Exam Physical Exam Vital Signs: Temp Pulse Resp BP Pulse Ox O2 Del Method 97.1 F L 60 12 127/70 95 Room Air 07/17/24 12:03 07/17/24 12:03 07/17/24 12:03 07/17/24 13:57 07/17/24 12:03 07/17/24 08:12 Narrative: Physical Exam: General: NAD, A&Ox3, Cooperative Head, Eyes: NC/AT, EOMI Lungs: Good air entry; No crackles/rhonchi/wheezes Heart: S1S2 normal, Regular rhythm, No murmurs/rubs/gallop, No JVD Extremities: No edema. Abdomen: Soft, non-tender, non-distended. Neuro: CN grossly intact, No focal deficits. Psych: Normal mood & affect. Results - Cardiology Labs 07/17/24 05:21 07/17/24 05:21 Lab results: Cardiac Enzymes 07/17/24 Range/Units 05:21 AST 20 (13-39) U/L CBC 07/17/24 Range/Units 05:21 RBC 4.73 (3.90-5.60) x10E6/uL Hgb 12.4 L (13.0-17.0) g/dL Hct 37.8 L (38.8-50.0) % Plt Count 229 (150-450) x10E3/uL Neut # (Auto) N/A Lymph # (Auto) N/A [place] # (Auto) N/A Eos # (Auto) N/A Baso # (Auto) N/A Comprehensive Metabolic Panel 07/17/24 Range/Units 05:21 Sodium 131 L (136-145) mmol/L Potassium 4.8 (3.5-5.1) mmol/L Chloride 96 L (98-107) mmol/L Carbon Dioxide 28.2 (21.0-31.0) mmol/L BUN 20 (7-25) mg/dL Creatinine 1.03 (0.70-1.30) mg/dL Glucose 443 H D (70-100) mg/dL Calcium 8.8 (8.6-10.3) mg/dL AST 20 (13-39) U/L ALT 18 (7-52) U/L Alkaline Phosphatase 136 H (34-104) U/L Total Protein 6.6 (6.4-8.9) gm/dL Albumin 3.6 (3.5-5.7) gm/dL Intake and Output 07/17/24 07/17/24 07/17/24 06:59 14:59 22:59 Output Total 700 / 700 Balance -700 / -700 Output: Urine 700 / 700 Other: Weight 63.5 kg Date of Last Bowel Movement 07/16/24 07/16/24 Lab 07/16/24 07/17/24 12:30 05:21 PT 14.3 H 14.5 H INR 1.2 1.3 APTT 30.6 A&P - Cardiology (1) COPD with acute exacerbation: Code(s): J44.1 - Chronic obstructive pulmonary disease with (acute) exacerbation (2) Pleuritic chest pain: Code(s): R07.81 - Pleurodynia (3) CAD (coronary artery disease): Code(s): I25.10 - Atherosclerotic heart disease of [place] coronary artery without angina pectoris (4) S/P ICD (internal cardiac defibrillator) procedure: Code(s): Z95.810 - Presence of automatic (implantable) cardiac defibrillator (5) Ischemic cardiomyopathy: Code(s): I25.5 - Ischemic cardiomyopathy Plan # Chest pain on admission - is musculoskeletal and pleuritic likely due to his URI and cough. # CAD s/p PCI in Jul 2023. 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 Current smoker. [facility] 04/30/23 - Two-vessel coronary artery disease- 100% prox LAD occlusion; 80% D1; LCx has 50% prox stenosis with 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 Echo 04/28/23 - EF 40-45%, mild LVH, trace MR and TR. [facility] 07/16/22 - Successful PCI ostial/proximal LAD-diagonal branch; true CHIEF PHYSICAL THERAPIST proximal/mid LAD (attempted wiring with balloon). ECHO in January [address] [facility] ([place], [place]): EF 30-35% ECHO 03/09/2024: ECHO which showed persistently low EF 25-30% with anteroseptal and apical wall akinesis and moderate MR. -His chest x-ray is normal. CTA chest was negative for PE, but does not show any significant pericardial effusion. There are mildly increased interstitial markings on the CT but is not impressive forCHF. -He received one dose of diuretic in the ER. Clinically he is completely euvolemic and has absolutely no peripheral edema, crackles or JVD. Will add a daily oral diuretic to his regimen. Script for Lasix 20mg daily sent to his pharmacy. -ICD site is normal. -Continue current regimen for CAD and HF. -Will see as needed. Please call with any questions. Follow up with [facility] Cardiology as scheduled. Documented By: Chuck Velasco MD 01/03 Signed By: 07/17/24 1652 [facility]01-06-2025 History and physical note Author Indra Guillory [facility] Note Date/Time July 17, 2024 1: 48am [facility] [address] [place] [address] Hospitalist H&P Signed Patient: Manolo Vickers MR#: [id number] : 1935 Acct:[id number] Age/Sex: 89 / M Adm Date: 5 Loc: Room: [address] [place] [address] Type: ADM INOo Attending Dr: Indra Guillory MD Copies to: MD Marie Keller,DO~ HPI DATE OF EXAMINATION: 07/17/24 CHIEF COMPLAINT: Chest pain HISTORY OF PRESENT ILLNESS: Mr. Vickers is an 89-year-old male with PMH of type 1 diabetes mellitus, CAD, BPH, ischemic cardiomyopathy status post ICD who presents to the emergency department with complaints of chest pain over the past 2 to 3 days. Patient notes that with deep inspiration he has significant discomfort in the left side of his chest. He has not experienced pain like this before. Pain is left-sidedand below where his ICD is placed. He does note that it is superficial and upondeep inspiration. Given that the symptoms persisted over the last few days he decided to come into the emergency department for further evaluation. He does note some associated dizziness with the chest pain, but no other major symptoms otherwise. In the emergency department, vital signs are largely within normal limits, though patient is moderately hypertensive. Lab work is noteworthy for elevated BNP of 2052, CPK 136, initial troponin 32 and repeat troponin 29. Patient underwent CT imaging of the chest to rule out PE. There was no evidence of pulmonary embolism, but there was cardiomegaly with small pericardial effusion as well as interstitial edema consistent with possible congestive heart failure. Patient was given Bumex x 1 dose, 2 DuoNeb treatments and Solu-Medrol. Case was discussed between myself and ED attending and patient was admitted to hospitalist service for further management. Review of Systems Review of Systems Review of systems: 10 point ROS reviewed and is neg except for that which is noted above in HPI [facility] Medical History Type 1 diabetes mellitus CAD (coronary artery disease) Former smoker BPH (benign prostatic hyperplasia) Urinary frequency Cardiomyopathy wearing external defib Coronary artery disease involving [place] coronary artery of [place] heart withoutangina pectoris GI bleeding Dupuytren's contracture of right hand Carpal tunnel syndrome of left wrist Cervical spine fracture Fracture of cervical spinous process Stomach ulcer previous rupture with repair. Melena Anxiety and depression Hypertension Protein-calorie malnutrition, mild BPH (benign prostatic hyperplasia) Surgical History AICD (automatic cardioverter/defibrillator) present History of bilateral cataract extraction History of appendectomy History of cardiac catheterization S/P PTCA (percutaneous transluminal coronary angioplasty) History of tonsillectomy History of resection of pancreas due to cysts of pancreas and weight loss History of back surgery 1985 H/O heart artery stent History of repair of hip fracture R side with 3 nails in. H/O splenectomy Family History Brother Cancer Son Sarcoma Mother No problems noted. Father No problems noted. Sister Leukemia Social History Smoking Status: Former smoker Tobacco Type: cigarettes Substance Use Type: Alcohol Substance Abuse Comment: Pt states he drinks 1 glass of wine every night Meds Medications and Allergies Allergies No Known Allergies Allergy (Verified 07/16/24 11:43) Home Medications aspirin 81 mg tablet,delayed release 81 mg PO DAILY 30 days #30 tabs 05/07/23 [Rx Confirmed 07/16/24] bkmcva-godafnay-wgrslux 24,000-76,000-120,000 unit capsule,delayed rel (Creon) 2cap PO TID.WITH.MEALS 30 days #120 caps 05/07/23 [Rx Confirmed 07/16/24] nitroglycerin 0.4 mg sublingual tablet 0.4 mg sublingual Q5M PRN Chest Pain 30 days #30 tabs 05/07/23 [Rx Confirmed 07/16/24] acetaminophen 500 mg tablet 500 mg PO Q6HR PRN pain 08/31/23 [History Confirmed 06/16/24] insulin aspart U-100 100 unit/mL (3 mL) subcutaneous pen (Novolog FlexPen U-100 Insulin aspart) See Protocol subcut TID.WM.HS #0 mL 09/03/23 [Rx Confirmed 07/16/24] blood sugar diagnostic #120 ea 09/05/23 [Rx Confirmed 07/16/24] lancets #120 ea 09/05/23 [Rx Confirmed 07/16/24] pen needle, diabetic 32 gauge x 5/32 (BD Ultra-Fine Marichuy Pen Needle) #100 ea 09/05/23 [Rx Confirmed 07/16/24] cholecalciferol (vitamin D3) 100 mcg PO DAILY 10/26/23 [History Confirmed 07/16/24] loratadine 10 mg tablet (Claritin) 1 tab PO DAILY 10/26/23 [History Confirmed 07/16/24] lutein 6 mg capsule 6 mg PO DAILY 10/26/23 [History Confirmed 07/16/24] multivitamin with minerals-folic acid 12 mcg chewable tablet (Centrum Adults) 1 tab PO DAILY 10/26/23 [History Confirmed 07/16/24] wfblbk-qqqvmmmk-pqvxpar 24,000-76,000-120,000 unit capsule,delayed rel (Creon) 1cap PO TID PRN gastrointestinal spasms or cramping 02/05/24 [History Confirmed 07/16/24] paroxetine HCl 40 mg tablet 40 mg PO QAM 02/15/24 [History Confirmed 07/16/24] atorvastatin 80 mg tablet 80 mg PO QHS 90 days #90 tabs 02/28/24 [Rx Confirmed 07/16/24] lisinopril 2.5 mg tablet 2.5 mg PO QAM 05/16/24 [History Confirmed 07/16/24] omeprazole 20 mg capsule,delayed release 20 mg PO BID 05/16/24 [History Confirmed 07/16/24] tamsulosin 0.4 mg capsule 0.4 mg PO QPM 05/16/24 [History Confirmed 07/16/24] metoprolol succinate 25 mg tablet,extended release 24 hr 12.5 mg PO BID 07/16/24[History Confirmed 07/16/24] spironolactone 25 mg tablet 25 mg PO DAILY 07/16/24 [History Confirmed 07/16/24] Exam Physical Exam Vital Signs: Temp Pulse Resp BP Pulse Ox O2 Del Method 98.3 F 60 20 133/65 93 L Room Air 07/16/24 21:13 07/16/24 21:13 07/16/24 21:13 07/16/24 21:13 07/16/24 21:13 07/16/24 21:13 Narrative: Constitutional: Middle-aged WM, resting in bed comfortably HEENT: Moist mucous membranes, neck supple Cardiovascular: RRR, no M/R/G, normal S1 and S2, no JVD Respiratory: Lungs clear to auscultation bilaterally, no wheezes, rales or rhonchi GI: Soft, NTND, normoactive bowel sounds : Deferred Neuro: AAO x3, no focal deficits. CN III-XII grossly intact, Strength 5/5 throughout Extremities: No clubbing, cyanosis or edema Psych: Patient calm, cooperative and conversant Results - Hospitalist H&P Lab Results Labs: Laboratory Last Values Corrected WBC 7.2 X10E3/uL (4.1-10.5) 07/16/24 12:30 Uncorrected WBC Count 7.2 x10E3/uL (4.1-10.5) 07/16/24 12:30 RBC 4.50 x10E6/uL (3.90-5.60) 07/16/24 12:30 Hgb 11.7 g/dL (13.0-17.0) L 07/16/24 12:30 Hct 35.8 % (38.8-50.0) L 07/16/24 12:30 MCV 79.7 fl (83.5-101) L 07/16/24 12:30 MCH 25.9 pg (27.5-35.2) L 07/16/24 12:30 MCHC 32.5 g/dL (32.5-35.6) 07/16/24 12:30 RDW 19.9 % (12.0-14.8) H 07/16/24 12:30 Plt Count 210 x10E3/uL (150-450) 07/16/24 12:30 MPV 10.9 fl (6.6-10.1) H 07/16/24 12:30 Neut % (Auto) 64.8 % (.) 07/16/24 12:30 Lymph % (Auto) 18.9 % (.) 07/16/24 12:30 [place] % (Auto) 12.8 % (.) 07/16/24 12:30 Eos % (Auto) 2.7 % (.) 07/16/24 12:30 Baso % (Auto) 0.8 % (.) 07/16/24 12:30 Nucleat RBC Rel Count 0.2 /100 WBC (0-0.5) 07/16/24 12:30 Neut # (Auto) 4.7 x10E3/uL (1.8-7.7) 07/16/24 12:30 Lymph # (Auto) 1.4 x10E3/uL (1.00-4.8) 07/16/24 12:30 [place] # (Auto) 0.9 x10E3/uL (0.0-0.8) H 07/16/24 12:30 Eos # (Auto) 0.2 x10E3/uL (0.0-0.45) 07/16/24 12:30 Baso # (Auto) 0.1 x10E3/uL (0.0-0.2) 07/16/24 12:30 Monocyte Dist Width 17.82 % (0.00-20.00) 07/16/24 12:30 PT 14.3 Seconds (9.0-12.9) H 07/16/24 12:30 INR 1.2 07/16/24 12:30 PHA Creatinine Clear 60.91 07/16/24 12:30 Sodium 133 mmol/L (136-145) L 07/16/24 12:30 Potassium 4.2 mmol/L (3.5-5.1) 07/16/24 12:30 Chloride 99 mmol/L (98-107) 07/16/24 12:30 Carbon Dioxide 28.0 mmol/L (21.0-31.0) 07/16/24 12:30 Anion Gap 10.2 mEq/L (6.0-15.0) 07/16/24 12:30 BUN 18 mg/dL (7-25) 07/16/24 12:30 Creatinine 0.82 mg/dL (0.70-1.30) 07/16/24 12:30 Est GFR (CKD-EPI) > 60.0 mL/Min 07/16/24 12:30 Glucose 191 mg/dL (70-100) H 07/16/24 12:30 POC Glucose 327 mg/dl 07/16/24 19:58 Calcium 8.8 mg/dL (8.6-10.3) 07/16/24 12:30 Total Creatine Kinase 136 U/L (30-223) 07/16/24 12:30 Troponin I High Sens 29.4 pg/mL (0.0-20.0) H 07/16/24 14:37 B-Natriuretic Peptide 2052.0 pg/mL (5-100) H 07/16/24 12:30 Assessment & Plan Assessment/Plan (1) Acute exacerbation of CHF (congestive heart failure): (2) Pleuritic chest pain: (3) Type 1 diabetes mellitus: (4) CAD (coronary artery disease): (5) S/P ICD (internal cardiac defibrillator) procedure: (6) Ischemic cardiomyopathy: Plan Mr. Vickers is an 89-year-old male with PMH of type 1 diabetes mellitus, CAD, BPH, ischemic cardiomyopathy status post ICD who presents to the emergency department with complaints of pleuritic chest pain over the past 2 to 3 days. Patient is no longer having the pain on my assessment in the emergency department. His breathing is nonlabored and lungs sound clear. There is some reproducibility of the chest pain below his ICD/pacer. Suspecting this is more of a superficial chest wall pain and discomfort. CT of the chest does demonstrate small pericardial effusion and evidence of volume overload. He seems to have done well with the 1 dose of IV Bumex. Will consult cardiology for their assessment of patient's cardiac complaints. I will continue IV Bumex,but patient is not severely volume overloaded. Will hold on further treatment for COPD exacerbation including steroids and DuoNebs, as this does not appear carlos consistent with the history I obtained. Will continue home meds otherwise. CODE STATUS: Full code. IP vs OBS Justification Based on differential dx, clinical care plan, and risk of adverse events, if untreated, in my clinical judgement this patient requires an acute care setting as: OBSERVATION because of an expectation of an under 2 midnight stay. Estimated length of stay (# of days): 2 Documented By: Indra Guillory MD [id number] Signed By: <Electronically signed by Indra Guillory MD> 07/17/24 0148 [facility] Work Phone: 1(406) 363-723601-06-2025 [place] [address] Hospitalist H&P Signed Patient: Manolo Vickers MR#: [id number] : 1935 Acct:[id number] Age/Sex: 89 / M Adm Date: 5 Loc: Room: [address] [place] [address] Type: ADM INOo Attending Dr: Indra Guillory MD Copies to: MD Marie Keller,DO~ HPI DATE OF EXAMINATION: 07/17/24 CHIEF COMPLAINT: Chest pain HISTORY OF PRESENT ILLNESS: Mr. Vickers is an 89-year-old male with PMH of type 1 diabetes mellitus, CAD, BPH, ischemic cardiomyopathy status post ICD who presents to the emergency department with complaints of chest pain over the past 2 to 3 days. Patient notes that with deep inspiration he has significant discomfort in the left side of his chest. He has not experienced pain like this before. Pain is left- sidedand below where his ICD is placed. He does note that it is superficial and upondeep inspiration. Given that the symptoms persisted over the last few days he decided to come into the emergency department for further evaluation. He does note some associated dizziness with the chest pain, but no other major symptoms otherwise. In the emergency department, vital signs are largely within normal limits, though patient is moderately hypertensive. Lab work is noteworthy for elevated BNP of 2052, CPK 136, initial troponin 32 andrepeat troponin 29. Patient underwent CT imaging of the chest to rule out PE. There was no evidenceof pulmonary embolism, but there was cardiomegaly with small pericardial effusion as well as interstitial edema consistent with possible congestive heart failure. Patient was given Bumex x 1 dose, 2 DuoNeb treatments and Solu-Medrol. Case was discussed between myself and ED attending and patient was admitted to hospitalist service for further management. Review of Systems Review of Systems Review of systems: 10 point ROS reviewed and is neg except for that which is noted above in HPI [facility] Medical History Type 1 diabetes mellitus CAD (coronary artery disease) Former smoker BPH (benign prostatic hyperplasia) Urinary frequency Cardiomyopathy wearing external defib Coronary artery disease involving [place] coronary artery of [place] heart withoutangina pectoris GI bleeding Dupuytren's contracture of right hand Carpal tunnel syndrome of left wrist Cervical spine fracture Fracture of cervical spinous process Stomach ulcer previous rupture with repair. Melena Anxiety and depression Hypertension Protein-calorie malnutrition, mild BPH (benign prostatic hyperplasia) Surgical History AICD (automatic cardioverter/defibrillator) present History of bilateral cataract extraction History of appendectomy History of cardiac catheterization S/P PTCA (percutaneous transluminal coronary angioplasty) History of tonsillectomy History of resection of pancreas due to cysts of pancreas and weight loss History of back surgery 1985 H/O heart artery stent History of repair of hip fracture R side with 3 nails in. H/O splenectomy Family History Brother Cancer Son Sarcoma Mother No problems noted. Father No problems noted. Sister Leukemia Social History Smoking Status: Former smoker Tobacco Type: cigarettes Substance Use Type: Alcohol Substance Abuse Comment: Pt states he drinks 1 glass of wine every night Meds Medications and Allergies Allergies No Known Allergies Allergy (Verified 07/16/24 11:43) Home Medications aspirin 81 mg tablet,delayed release 81 mg PO DAILY 30 days #30 tabs 05/07/23 [Rx Confirmed 07/16/24] kltjxn-xyrntadl-vpnbnmv 24,000-76,000-120,000 unit capsule,delayed rel (Creon) 2cap PO TID.WITH.MEALS 30 days #120 caps 05/07/23 [Rx Confirmed 07/16/24] nitroglycerin 0.4 mg sublingual tablet 0.4 mg sublingual Q5M PRN Chest Pain 30 days #30 tabs 05/07/23 [Rx Confirmed 07/16/24] acetaminophen 500 mg tablet 500 mg PO Q6HR PRN pain 08/31/23 [History Confirmed 06/16/24] insulin aspart U-100 100 unit/mL (3 mL) subcutaneous pen (Novolog FlexPen U-100 Insulin aspart) SeeProtocol subcut TID.WM.HS #0 mL 09/03/23 [Rx Confirmed 07/16/24] blood sugar diagnostic #120 ea 09/05/23 [Rx Confirmed 07/16/24] lancets #120 ea 09/05/23 [Rx Confirmed 07/16/24] pen needle, diabetic 32 gauge x 5/32 (BD Ultra-Fine Marichuy Pen Needle) #100 ea 09/05/23 [Rx Confirmed 07/16/24] cholecalciferol (vitamin D3) 100 mcg PO DAILY 10/26/23 [History Confirmed 07/16/24] loratadine 10 mg tablet (Claritin) 1 tab PO DAILY 10/26/23 [History Confirmed 07/16/24] lutein 6 mg capsule 6 mg PO DAILY 10/26/23 [History Confirmed 07/16/24] multivitamin with minerals-folic acid 12 mcg chewable tablet (Centrum Adults) 1 tab PO DAILY 10/26/23 [History Confirmed 07/16/24] eolqbl-cipfmpez-edmdkhk 24,000-76,000-120,000 unit capsule,delayed rel (Creon) 1cap PO TID PRN gastrointestinal spasms or cramping 02/05/24 [History Confirmed 07/16/24] paroxetine HCl 40 mg tablet 40 mg PO QAM 02/15/24 [History Confirmed 07/16/24] atorvastatin 80 mg tablet 80 mg PO QHS 90 days #90 tabs 02/28/24 [Rx Confirmed 07/16/24] lisinopril 2.5 mg tablet 2.5 mg PO QAM 05/16/24 [History Confirmed 07/16/24] omeprazole 20 mg capsule,delayed release 20 mg PO BID 05/16/24 [History Confirmed 07/16/24] tamsulosin 0.4 mg capsule 0.4 mg PO QPM 05/16/24 [History Confirmed 07/16/24] metoprolol succinate 25 mg tablet,extended release 24 hr 12.5 mg PO BID 07/16/24[History Confirmed 07/16/24] spironolactone 25 mg tablet 25 mg PO DAILY 07/16/24 [History Confirmed 07/16/24] Exam Physical Exam Vital Signs: Temp Pulse Resp BP Pulse Ox O2 Del Method 98.3 F 60 20 133/65 93 L Room Air 07/16/24 21:13 07/16/24 21:13 07/16/24 21:13 07/16/24 21:13 07/16/24 21:13 07/16/24 21:13 Narrative: Constitutional: Middle-aged WM, resting in bed comfortably HEENT: Moist mucous membranes, neck supple Cardiovascular: RRR, no M/R/G, normal S1 and S2, no JVD Respiratory: Lungs clear to auscultation bilaterally, no wheezes, rales or rhonchi GI: Soft, NTND, normoactive bowel sounds : Deferred Neuro: AAO x3, no focal deficits. CN III-XII grossly intact, Strength 5/5 throughout Extremities: No clubbing, cyanosis or edema Psych: Patient calm, cooperative and conversant Results - Hospitalist H&P Lab Results Labs: Laboratory Last Values Corrected WBC 7.2 X10E3/uL (4.1-10.5) 07/16/24 12:30 Uncorrected WBC Count 7.2 x10E3/uL (4.1-10.5) 07/16/24 12:30 RBC 4.50 x10E6/uL (3.90-5.60) 07/16/24 12:30 Hgb 11.7 g/dL (13.0-17.0) L 07/16/24 12:30 Hct 35.8 % (38.8-50.0) L 07/16/24 12:30 MCV 79.7 fl (83.5-101) L 07/16/24 12:30 MCH 25.9 pg (27.5-35.2) L 07/16/24 12:30 MCHC 32.5 g/dL (32.5-35.6) 07/16/24 12:30 RDW 19.9 % (12.0-14.8) H 07/16/24 12:30 Plt Count 210 x10E3/uL (150-450) 07/16/24 12:30 MPV 10.9 fl (6.6-10.1) H 07/16/24 12:30 Neut % (Auto) 64.8 % (.) 07/16/24 12:30 Lymph % (Auto) 18.9 % (.) 07/16/24 12:30 [place] % (Auto) 12.8 % (.) 07/16/24 12:30 Eos % (Auto) 2.7 % (.) 07/16/24 12:30 Baso % (Auto) 0.8 % (.) 07/16/24 12:30 Nucleat RBC Rel Count 0.2 /100 WBC (0-0.5) 07/16/24 12:30 Neut # (Auto) 4.7 x10E3/uL (1.8-7.7) 07/16/24 12:30 Lymph # (Auto) 1.4 x10E3/uL (1.00-4.8) 07/16/24 12:30 [place] # (Auto) 0.9 x10E3/uL (0.0-0.8) H 07/16/24 12:30 Eos # (Auto) 0.2 x10E3/uL (0.0-0.45) 07/16/24 12:30 Baso # (Auto) 0.1 x10E3/uL (0.0-0.2) 07/16/24 12:30 Monocyte Dist Width 17.82 % (0.00-20.00) 07/16/24 12:30 PT 14.3 Seconds (9.0-12.9) H 07/16/24 12:30 INR 1.2 07/16/24 12:30 PHA Creatinine Clear 60.91 07/16/24 12:30 Sodium 133 mmol/L (136-145) L 07/16/24 12:30 Potassium 4.2 mmol/L (3.5-5.1) 07/16/24 12:30 Chloride 99 mmol/L (98-107) 07/16/24 12:30 Carbon Dioxide 28.0 mmol/L (21.0-31.0) 07/16/24 12:30 Anion Gap 10.2 mEq/L (6.0-15.0) 07/16/24 12:30 BUN 18 mg/dL (7-25) 07/16/24 12:30 Creatinine 0.82 mg/dL (0.70-1.30) 07/16/24 12:30 Est GFR (CKD-EPI) > 60.0 mL/Min 07/16/24 12:30 Glucose 191 mg/dL (70-100) H 07/16/24 12:30 POC Glucose 327 mg/dl 07/16/24 19:58 Calcium 8.8 mg/dL (8.6-10.3) 07/16/24 12:30 Total Creatine Kinase 136 U/L (30-223) 07/16/24 12:30 Troponin I High Sens 29.4 pg/mL (0.0-20.0) H 07/16/24 14:37 B-Natriuretic Peptide 2052.0 pg/mL (5-100) H 07/16/24 12:30 Assessment & Plan Assessment/Plan (1) Acute exacerbation of CHF (congestive heart failure): (2) Pleuritic chest pain: (3) Type 1 diabetes mellitus: (4) CAD (coronary artery disease): (5) S/P ICD (internal cardiac defibrillator) procedure: (6) Ischemic cardiomyopathy: Plan Mr. Vickers is an 89-year-old male with PMH of type 1 diabetes mellitus, CAD, BPH, ischemic cardiomyopathy status post ICD who presents to the emergency department with complaints of pleuritic chest pain over the past 2 to 3 days. Patient is no longer having the pain on my assessment in the emergency department. His breathing is nonlabored and lungs sound clear. There is some reproducibility of the chest pain below his ICD/pacer. Suspecting this is more of a superficial chest wall pain and discomfort. CT of the chest does demonstrate small pericardial effusion and evidence of volume overload. He seems to have done well with the 1 dose of IV Bumex. Will consult cardiology for their assessmentof patient's cardiac complaints. I will continue IV Bumex,but patient is not severely volume overloaded. Will hold on further treatment for COPD exacerbation including steroids and DuoNebs, as this does not appear carlos consistent with the history I obtained. Will continue home meds otherwise. CODE STATUS: Full code. IP vs OBS Justification Based on differential dx, clinical care plan, and risk of adverse events, if untreated, in my clinical judgement this patient requires an acute care setting as: OBSERVATION because of an expectation of an under 2 midnight stay. Estimated length of stay (# of days): 2 Documented By: Indra Guillory MD 5 [id number] Signed By: 07/17/24 0148 [facility]01-05-2025 Evaluation note* Diagnosis Onset Date Resolution Status Admit Date CAD (coronary artery disease) acute July 16, 2024 6:08pm Ischemic cardiomyopathy acute J anuary 2024 6:08pm S/P ICD (internal cardiac defibrillator) procedure acute July 16, 2024 6:08pm Type 1 diabetes mellitus acute July 16, 2024 6:08pm Acute exacerbation of CHF (congestive heart failure) resolved 2024 6:08pm COPD with acute exacerbation resolve d July 16, 2024 6:08pm Pleuritic chest pain resolved [id number] 6:08pm Ischemic cardiomyopathy acute F ebruary 2024 9:56am Type 1 diabetes mellitus acute August 31, 2024 9:56am Acute GI bleeding resolved 2024 9:56am Coronary artery disease involving [place] coronary artery of [place] heart [place] inactive 2024 9:56am Hypertension inactive August 9:56am S/P PTCA (percutaneous transluminal coronary angioplasty) inactive August 31, 2 025 9:56am Ischemic cardiomyopathy acute A pril 2024 9:10am Type 1 diabetes mellitus acute October 13, 2024 9:10am Acute GI bleeding resolved October 132024 9:10am Coronary artery disease involving [place] coronary artery of [place] heart wi inactive October 13, 2024 9:10am Hypertension inactive October 13, 2 025 9:10am S/P PTCA (percutaneous transluminal coronary angioplasty) inactive October 13, 2024 9:10am [facility] Work Phone: 1(783) 779-544901-05-2025 [facility]iology [facility] [place] [address] CT Scan Report Signed Patient: Manolo Vickers MR#: [id number] : 1935 Acct:[id number] Age/Sex: 89 / M ADM Date: 5 Loc: ER Room: Type: [facility] ER Attending Dr: Copies to: Bertin Yepez DO~ Ordering Provider: Bertin Yepez DO Date of Service: 07/16/24 CT/CT angio chest PE protocol: r/o pe CT angio chest PE protocol 07/16/2024 3:29 PM SIGN AND SYMPTOMS: Left-sided chest pain, rule out PE CONTRAST: 90 mL of intravenous Isovue-370 TECHNIQUE: Multidetector CT axial slices of the chest were obtained with IV contrast. Multiplanar and 3-D reformats were performed and viewed on a separate workstation and reviewed to further define anatomy and possible pathology. CT was performed with one or more of the following dose reduction techniques: Automated exposure control, adjustment of the mA and/or kV according to patient size, or use of iterative reconstruction technique. COMPARISON: 12/26/2018 and 05/25/2024. FINDINGS: Lower neck: Thyroid gland within normal limits, no supraclavicle adenopathy. Vessels: Atherosclerotic changes are noted in the thoracic aorta, origins of thegreat vessels, and coronary arteries. There is no evidence of pulmonary embolism. Mediastinum and Amna: Within normal limits. Heart: There is cardiomegaly. There is a small pericardial effusion.. Airways: Within normal limits Lungs: Interstitial prominence is noted with intralobular septal thickening in afew areas of nodular opacity possibly relating to volume overload and edema. Pleura: Within normal limits. Chest Wall: Within normal limits. Upper Abdomen: Simple cysts are noted in the renal cortices requiring no furtherfollow-up. There isevidence of prior cholecystectomy. Bones: Degenerative changes are noted in the thoracolumbar spine. There is a compression deformity of the T5 superior endplate is unchanged when compared to radiographs from 05/25/2024. Degenerative changes are noted in the shoulders. CT/CT angio chest PE protocol IMPRESSION: There is no pulmonary embolism. There is cardiomegaly with a small pericardial effusion as well as interstitial edema in the areas of developing pulmonary edema suspicious for congestive heartfailure. Impression dictated by: Fidencio Valentin M.D.07/16/2024 4:48 PM Dictation Location: [facility]- Transcribed By: ERIBERTO 07/16/24 7027 Dictated By: Fidencio Valentin II, MD 07/16/24 1636 Signed By: 07/16/24 164 [facility] Work Phone: 1(933) 354-221501-02-2025 Telephone encounter Note* Telephone Encounter - Gaye Mata RN - 07/13/2024 4:14 PM EST In error [facility]01-02-2025 Miscellaneous Notes* Telephone Encounter - Gaye Mata RN - 07/13/2024 4:14 PM EST In error documented in this encounterC[facility] Telephone encounter Note * Telephone Encounter - Gaye Mata RN - 07/13/2024 4:09 PM EST Called and spoke with patient and to schedule Omnipod DASH to Omnipod 5 pump upgrade. Patient states he has the new pods and is wearing the Dexcom G6 CGM. Patient was scheduled for carb counting/insulin pump training for 07/25/24 at 1-3 pm at [facility]. Location. Patient's Mychart status is PENDING, invite resent via text and to create account. Email sent to [employer] with clinic address, time, date, and what to bring day of training. [facility]01-02-2025 Miscellaneous Notes* Telephone Encounter - Gaye Mata RN - 07/13/2024 4:09 PM EST Called and spoke with patient and to schedule Omnipod DASH to Omnipod 5 pump upgrade. Patient states he has the new pods and is wearing the Dexcom G6 CGM. Patient was scheduled for carb counting/insulin pump training for 07/25/24 at 1-3 pm at [facility]. Location. Patient's Mychart status is PENDING, invite resent via text and to create account. Email sent to [employer] with clinic address, time, date, and what to bring day of training. documented in this encounterC[facility]01[facility] History of Present illness Narrative* Stephanie Sheridan DO - 07/13/2024 10:45 AM EST Images from the original note were not included. Manolo Vickers is a 89 y.o. male presents for 3rd pow I&D Lt. abd. wall abscess HPI: HPI Ifeanyi is 3 weeks post-op from I&D of abdominal wall abscess, he is doing well, no issues OBJECTIVE: Physical Exam Left lower abdominal incision is healed ASSESSMENT AND PLAN: Assessment/Plan Problem List Items Addressed This Visit Abdominal wall abscess - Primary The wound is healed, no further treatment needed. I'll discharge him and see him PRN documented in this encounterSoutheast Missouri Community Treatment [id number] Miscellaneous Notes* Telephone Encounter - Ayana Zavala APRN.CNP - 07/06/2024 4:07 PM EST Please update patient that I called pharmacy and the glucagon pen is covered fully under their insurance, [facility] just has to order it and should be in by later in the day tomorrow per pharmacist. I spoke with Mary mary and she said since this just an upgrade she doesn't need to reach out to the patient and we can have them scheduled with one of our educators for training. I reached out to our receiving lead and am waiting to hear back, but hopefully can get him set up for training in the next two weeks. documented in this encounterC[facility]12-26-2024 Telephone encounter Note * Telephone Encounter - Ayana Zavala APRN.CNP - 07/06/2024 4:07 PM EST Please update patient that I called pharmacy and the glucagon pen is covered fully under their insurance, [facility] just has [facility] it and should be in by later in the day tomorrow per pharmacist. I spoke with Omnipod rep and she said since this just an upgrade she doesn't need to reach out to the patient and we can have them scheduled with one of our educators for training. I reached out to our receiving lead and am waiting to hear back, but hopefully can get him set up for training in the next two weeks. [facility]12-26-2024 Note* Addendum Note - Ayana Zavala APRN.CNP - 07/06/2024 1:16 PM ESTAddended by: AYANA ZAVALA on: 07/06/2024 01:16 PM Modules accepted: Orders [facility]12-26-2024 Miscellaneous Notes* Addendum Note - Ayana Zavala APRN.CNP - 07/06/2024 1:16 PM ESTAddended by: AYANA ZAVALA on: 07/06/2024 01:16 PM Modules accepted: Orders documented in this encounterCincinnati [facility] Center12-26-2024 Instructions* Patient Instructions* Ayana Zavala APRN.CNP - 07/06/2024 11:59 AM EST Plan Stop: Lantus 12 units at night Continue current pump settings Plan to upgrade to Omnipod 5 Check your blood glucose 4 times per day using CGM Glucose targets as: Fasting 80-130, before meals 100-130, and bedtime 100-150 mg/dL. Call the office with blood sugars less than 70 Follow up with me in 6 weeks LOW BLOOD SUGARS TREATMENTS RULE OF 15 IF POSSIBLE CHECK YOUR BLOOD SUGAR TREAT IF BELOW 70 mg/dL or HAVING SYMPTOMS OF LOW BLOOD SUGAR Treat with 1 carb choice or 15 grams of carbohydrates as listed 3-4 round glucose tablets OR 4 oz of juice OR 4 oz regular soda pop OR 1 tube instant glucose gel OR 3-5 pieces of hard candy chewed (not sugar free) Wait 15 minutes. Retest. If your blood sugar is less than 70 mg/dL or your still have symptoms, repeat treatment. If you still do not feel better after 3 treatments, call your healthcare provider or 911 Record this episode, date and time of the low blood sugar and any possible causes, along with what your did to treat it. If your next meal is more than one hour away, follow up with a small snack, one that has both protein and carbohydrates in it. Examples of a snack include one of the following Snack Ideas (15 grams of carbohydrate and 1 ounce protein) 150 calories or less [place] (1 slice bread, 1-2 slices turkey or lean meat), lettuce, tomato, 1 tsp light mayonnaise 2 slices light or reduced-calorie bread, 1 Tbsp peanut butter cup blueberries, raspberries, or blackberries, 1 slice string cheese (choose a low fat cheese with 3 grams fat or less per slice) cup fresh pineapple with cup low fat cottage cheese 5-6 crackers with cup tuna salad or tuna kit 3 cups popcorn (try light version or mini bag popcorn) 1 small piece fruit (one that you can tuck in your palm), 10 nuts (try the 100 calorie packs of nuts to limit the portion size since these are high in calories) 1 small granola bar (Voodoo Oats makes smaller granola bar or Special K bar), 10 nuts (try using the 100 calorie snack nut packs to limit the portion) Protein Cereal Bar (such as a Korrio Protein Bar) Low Calorie Protein Shake (EAS Advantage Carb Control), 1 small apple, orange, peach, pear (one that you can tuck in your palm) Serbian Yogurt (has 20 grams of carb, 2 ounces of lean protein) or 6 ounce light yogurt 1/3 cup hummus with celery sticks and baby carrots Low Carb Light Wrap (1-2 slices lean meat), lettuce, tomato, 1 tsp light German dressing (There are many options which are both high in fiber and low in calories--100 calories or less per wrap) documented in this encounterCincinnati [facility]12-26-2024 History of Present illness Narrative* Ayana Zavala APRN.TUBE BENDER HAND - 07/06/2024 11:00 AM EST Images from the original note were not included. Endocrinology Initial Diabetes Assessment Manolo Vickers is here for a consultation regarding: DM Type 2 My final recommendations will be communicated back to the requesting physician by way of shared Medical record or letter to requesting physician via US mail. PCP is DO Marie Rodriguez ([facility]) [address] [place] [address] History of Present Illness Manolo Vickers is a 89 year old male presents today for evaluation of DM Type 1. Here with and son. 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 No history of diabetes prior to this. Previous patient of Dr. Gómez. He is currently on Omnipod DASH and Dexcom G7. He reports taking Lantus 12 units daily at bedtime in addition to his pump and has been doing this for awhile. He takes manual boluses for breakfast, lunch and dinner (10-8-7 units). He does not knowhow to carb count. He has significant fluctuations in his blood sugar, with frequent hypoglycemia typically overnight.He is eating more frequently to keep his glucose up and then having elevations later in the day. EMS has been called several times due to his low glucose. He does not have warning symptoms of his lowblood sugars. Family reports they can usually have him correct with juice or honey but he is sometim es confused during low blood sugar episodes. They do not have glucagon at home. Glucose during visit reading 72 on Dexcom. Apple juice was provided to patient. He is a current smoker. Reports he may have a glass of wine with dinner every few days. Date of Diagnosis: 2019 Last HbA1c: Hemoglobin A1C (POCT) (%) Date Value 07/06/2024 10.1 Family history of diabetes includes none. Complications Microvascular: none Macrovascular: CAD s/p PCI Comorbidities: HTN, COPD, CAD, ICM, BPH, IPMN, pancreatitis Diabetic Foot and Retinal Eye Exam not Overdue Prior DM Medications: Jardiance- stopped by cardiology Current DM Related Medications: Current Medications 07/06/2024 DIABETES THERAPIES Medication Dosage Pharm Subclass insulin aspart U-100 (NOVOLOG U-100 INSULIN ASPART) 100 unit/mL ADMINISTER PER PUMP (MAX DAILY 60 UNITS) Insulin Analogs - Rapid Acting insulin glargine (LANTUS) 100 unit/mL injection In case of pump failure Insulin Analogs - Long Acting CARDIOVASCULAR Medication Dosage Pharm Subclass lisinopril 2.5 mg tablet Take 2.5 mg by mouth. MIS Inhibitors metoprolol succinate ER (TOPROL XL) 50 mg 24 hr tablet Take 1 tablet by mouth every 12 hours. Beta Blockers Cardiac Selective ANTI-PLATELET THERAPIES Medication Dosage Pharm Subclass aspirin, enteric coated (ASPIRIN, ENTERIC COATED) 81 mg EC tablet Take 81 mg by mouth once daily. Salicylate Analgesics ASPIRIN Medication Dosage Pharm Subclass aspirin, enteric coated (ASPIRIN, ENTERIC COATED) 81 mg EC tablet Take 81 mg by mouth once daily. Salicylate Analgesics OTHER Medication Dosage Pharm Subclass cetirizine (ZYRTEC) 10 mg tablet Take 10 mg by mouth once daily. Antihistamines - 2nd Generation cholecalciferol (VITAMIN D-3) 2,000 unit tablet Take 2,000 Units by mouth once daily. Vitamins - D Derivatives folic acid/multivit-min/lutein (CENTRUM SILVER ORAL) Take by mouth once daily. Multivitamin and Mineral Combinations glucagon (GVOKE HYPOPEN 2-PACK) 1 mg/0.2 mL auto-injector Inject 1 mg subcutaneously as needed. Agents to treat Hypoglycemia (Hyperglycemics) Lactobac no.41/Bifidobact no.7 (PROBIOTIC-10 ORAL) Take by mouth once daily. wssjra-oriypvmw-wvatuib (CREON) 24,000-76,000 -120,000 unit cpDR Take 2 capsules by mouth three times daily with meals. and 1 with snacks (8/day) Digestive Enzyme Mixtures lutein-zeaxanthin 25-5 mg cap Take by mouth once daily. Alternative Therapy - Antioxidant Omeprazole Magnesium 20 mg tablet Take 20 mg by mouth. Gastric Acid Secretion Chief Deputy Sheriff - Proton PumpInhibitors (PPIs) PARoxetine (PAXIL) 40 mg tablet Take 40 mg by mouth every morning. Antidepressant - Selective Serotonin Reuptake Inhibitors (SSRIs) tamsulosin (FLOMAX) 0.4 mg Take 0.4 mg by mouth. Prostatic Hypertrophy Agent - vzozc-6-IelduvjodlujBthdqvbmzet Physical Activity: No formal program Diet: CHO Controlled Diet SMBG Frequency of Monitoring: Four times a Day Summary of Personal CGM Findings: Dates worn: 06/22/24-07/05/24 CGM Type: Dexcom 1- CGM recording is adequate for interpretation. Worn 93% of time. 2- Average glucose is 176 mg/dl. 3. 42% time in range 70-180mg/dL 4. Coefficient of variation: 61% 5. Total frequency of hypoglycemia: 18% with BG<70 * Hypoglycemia patterns: overnight and after meals *Nocturnal hypoglycemia noted 6- Hyperglycemic episodes 40% with BG>180 * Hyperglycemia Patterns: postprandial Pump Settings: Omnipod DASH Basal 12am 0.5 ICR 12am 20 ISF 12am 60 BG Correction Threshold 12am 165 BG Target 12am 150 Past History, Medications, Allergies No past medical history on file. PAST SURGICAL HISTORY Procedure Laterality Date APPENDECTOMY HX BACK SURGERY HX TONSILLECTOMY HX ALLERGIES No Known Allergies No family history on file. Social History Tobacco Use Smoking status: Former Current packs/day: 0.00 Types: Cigarettes Quit date: 03/15/2018 Years since quittin.3 Smokeless tobacco: Never Substance Use Topics Alcohol use: Yes Comment: social use Drug use: No Review of Systems GENERAL: No weight loss, malaise or fevers RESPIRATORY: Negative for cough, hemoptysis, wheezing, COPD, dyspnea or shortness of breath CARDIOVASCULAR: Negative for chest pain, leg swelling, or palpitations GI: No nausea, vomiting, or diarrhea ENDOCRINE: Negative for cold or heat intolerance, polyuria, polydipsia and goiter NEUROLOGIC:Negative for focal numbness or weakness, headaches and dizziness or syncope. Physical examination BP 114/69 (BP Site: Left Arm, BP Position: Sitting, BP Cuff Size: Regular Adult) Pulse 60 Wt 68.3 kg (150 lb 9.2 oz) BMI 21.61 kg/m General appearance: Well appearing, alert, in no acute distress, well-hydrated, well nourished. Skin: Skin color, texture, turgor normal, no suspicious rashes or lesions HEART: RRR LUNGS: unlabored, normal respiratory rate, coarse breath sounds b/l bases EXTREMITIES No deformities, No skin discoloration and No edema NEURO: Speech normal, mental status intact, no tremor noted. Previous Laboratory Results LABS No results found for: GLUC , K , NA , CHLOR , CO2 , CREAT , BUN , ANION , CA , GFR , EGFRAA , EGFROTH ALT (U/L) Date Value 04/19/2018 12 TSH Date Value Ref Range Status 04/19/2018 0.874 0.400 - 5.500 uU/mL Final ains abnormal data COMPREHENSIVE METABOLIC PANEL Order: [id number] Component Ref Range & Units 5 mo ago Sodium 134 - 146 mmol/L 136 Potassium 3.5 - 5.0 mmol/L 4 Chloride 98 - 109 mmol/L 103 Carbon Dioxide 22 - 32 mmol/L 24 Anion Gap 5 - 15 mmol/L 9 BUN 5 - 27 mg/dL 16 Creatinine, External 0.60 - 1.30 mg/dL 0.77 Comment: METHOD TRACEABLE TO IDMS STANDARD Glucose 65 - 99 mg/dL 167 High Calcium 8.5 - 10.5 mg/dL 8.5 Total Protein 6.0 - 8.0 g/dL 6 Albumin 3.2 - 5.3 g/dL 3.4 Alkaline Phosphatase 39 - 130 U/L 102 AST 0 - 41 U/L 31 ALT 0 - 40 U/L 26 Total bilirubin 0.3 - 1.2 mg/dL 0.7 eGFR (CKD-EPI)non-race dependent >59 ml/min/1.73sq.m 87 Comment: Reported eGFR is based on the CKD-EPI 2020 equation that does not use a race coefficient. 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 RECOMMENDATIONS: 1. Glycemic control: Target HbA1C is less than 7.0% per ADA guidelines. This patient is not at target. He is having significant lability in glucose and excessive hypoglycemia d/t taking additional basal insulin subcutaneously in addition to his insulin pump. Lows most prominent in the early AM hours but are occurring throughout the day as well. We discussed he should not be on a basal insulin while on the insulin pump, as this is providing basal coverage for him. Plan to upgrade patient to Omnipod 5 as soon as possible as a closed loop system will provide protection from hypoglycemia and improve overall lability. Continue set boluses with meals as he is for now, until report can be viewed while using pump for basal insulin alone. Plan to review report in 2 weeks but will expedite upgrade to OP5. Glucagon sent to pharmacy. Extensive teaching provided regarding hypoglycemia protocols and provide detailed instructions on AVS. Discussed avoiding alcohol use and driving for the time being given extent of hypoglycemia. Patient was monitored in office until low blood sugar resolved. Plan Stop: Lantus 12 units at night Continue current pump settings Plan to upgrade to Omnipod 5 Check your blood glucose 4 times per day using CGM Glucose targets as: Fasting 80-130, before meals 100-130, and bedtime 100-150 mg/dL. Call the office with blood sugars less than 70 Follow up with me in 6 weeks Patient to continue to follow up with his PCP and with other consultants regarding his other medical problems. The patient was reminded to check their blood glucose as directed and to record the data in a logbook. This patient was advised to bring their logbook to each office visit. I recommended at least 150minutes per week of moderate physical activity, such as walking and to reduce carbohydrates and overall caloric intake. 2. Hypertension/BP control: BP goal for patients with diabetes is 130/80. -- This patient is at target on their current regimen. 3. Lipids: Target LDL cholesterol in patients with diabetes is less than 100, less than 70 if patient has overt CVD. Several studies have shown cardiovascular benefits of statin therapy in all patients with diabetes over age 40 with at least 1 CVD risk factor. No results found for: CHOL , HDL , LDL , TG LIPID PANEL (EXTERNAL) Order: [id number] Component Ref Range & Units 5 mo ago Cholesterol 150 - 200 mg/dL 97 Low Triglycerides 27 - 150 mg/dL 38 HDL Cholesterol >39 mg/dL 50 VLDL 0 - 30 mg/dL 8 LDL (calc) <130 mg/dL 39 Cholesterol:HDL Ratio 1.0 - 5.0 1.9 Resulting Agency [facility] Specimen Collected: 01/22/24 6:06 AM Performed by: bunkersofa Last Resulted: 01/22/24 1:58 PM Received From: [email or web address] Result Received: 07/06/24 9:37 AM -- This patient is currently at target. Not on statin. 4. Nephropathy screening: Annual measurement of urine albumin excretion is recommended in patients with diabetes. No results found for: UALBCR , UPROT , UCR , UCRR , UALB -- Will address at follow up. 5. Ophthalmology: Annual dilated eye exams are recommended for patients with type 1 and type 2 diabetes. -- Will address at follow up. Any part of this document that has been added/copied & pasted from other documents has been reviewed for accuracy and updated as appropriate at the time of the patient encounter I spent a total of 67 minutes on the date of the service which included preparing to see the patient, [id number] patient care, completing clinical documentation, counseling and educating the patient/family/caregiver, ordering medications, tests, or procedures, and communicating results to the mary ent/family/caregiver. Ayana Zavala APRN.KALANI (Signed electronically to expedite mailing) documented in this [facility]24 NoteHNO ID: [id number] Author: AYANA ZAVALA APRN.KALANI Service: ? Author Type: Nurse Practitioner Type: Progress Notes Filed: 07/06/2024 12:36 Note Text: Endocrinology Initial Diabetes Assessment Manolo Vickers is here for a consultation regarding: DM Type 2 My final recommendations will be communicated back to the requesting physician by way of shared Medical record or letter to requesting physician via US mail. PCP is DO Marie Rodriguez (Arnaldo) [address] [phone] History of Present Illness Manolo Vickers is a 89 year old male presents today for evaluation of DM Type 1. Here with and son. 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 No history of diabetes prior to this. Previous patient of Dr. Gómez. He is currently on Omnipod DASH and Dexcom G7. He reports taking Lantus 12 units daily at bedtime in addition to his pump and has been doing this for awhile. He takes manual boluses for breakfast, lunch and dinner (10-8-7 units). He does not know how to carb count. He has significant fluctuations in his blood sugar, with frequent hypoglycemia typically overnight. He is eating more frequently to keep his glucose up and then having elevations later in the day. EMS has been called several times due to his low glucose. He does not have warning symptoms of his low blood sugars. Family reports they can usually have him correct with juice or honey but he is sometimes confused during low blood sugar episodes. They do not have glucagon at home. Glucose during visit reading 72 on Dexcom. Apple juice was provided to patient. He is a current smoker. Reports he may have a glass of wine with dinner every few days. Date of Diagnosis: 2019 HbA1c: Hemoglobin A1C (POCT) (%) Date Value 07/06/2024 10.1 Family history of diabetes includes none. Complications Microvascular: none Macrovascular: CAD s/p PCI Comorbidities: HTN, COPD, CAD, ICM, BPH, IPMN, pancreatitis Diabetic Foot and Retinal Eye Exam not Overdue Prior DM Medications: Jardiance- stopped by cardiology Current DM Related Medications: Current Medications 07/06/2024 DIABETES THERAPIES Medication Dosage Pharm Subclass insulin aspart U-100 (NOVOLOG U-100 INSULIN ASPART) 100 unit/mL ADMINISTER PER PUMP (MAX DAILY 60 UNITS) Insulin Analogs - Rapid Acting insulin glargine (LANTUS) 100 unit/mL injection In case of pump failure Insulin Analogs - Long Acting CARDIOVASCULAR Medication Dosage Pharm Subclass lisinopril 2.5 mg tablet Take 2.5 mg by mouth. MIS Inhibitors metoprolol succinate ER (TOPROL XL) 50 mg 24 hr tablet Take 1 tablet by mouth every 12 hours. Beta Blockers Cardiac Selective ANTI-PLATELET THERAPIES Medication Dosage Pharm Subclass aspirin, enteric coated (ASPIRIN, ENTERIC COATED) 81 mg EC tablet Take 81 mg by mouth once daily. Salicylate Analgesics ASPIRIN Medication Dosage Pharm Subclass aspirin, enteric coated (ASPIRIN, ENTERIC COATED) 81 mg EC tablet Take 81 mg by mouth once daily. Salicylate Analgesics OTHER Medication Dosage Pharm Subclass cetirizine (ZYRTEC) 10 mg tablet Take 10 mg by mouth once daily. Antihistamines - 2nd Generation cholecalciferol (VITAMIN D-3) 2,000 unit tablet Take 2,000 Units by mouth once daily. Vitamins - D Derivatives folic acid/multivit-min/lutein (CENTRUM SILVER ORAL) Take by mouth once daily. Multivitamin and Mineral Combinations glucagon (GVOKE HYPOPEN 2-PACK) 1 mg/0.2 mL auto-injector Inject 1 mg subcutaneously as needed. Agents to treat Hypoglycemia (Hyperglycemics) Lactobac no.41/Bifidobact no.7 (PROBIOTIC-10 ORAL) Take by mouth once daily. tvitlx-dbxuapoz-mmizhrw (CREON) 24,000-76,000 -120,000 unit cpDR Take 2 capsules by mouth three times daily with meals. and 1 with snacks (8/day) Digestive Enzyme Mixtures lutein-zeaxanthin 25-5 mg cap Take by mouth once daily. Alternative Therapy - Antioxidant Omeprazole Magnesium 20 mg tablet Take 20 mg by mouth. Gastric Acid Secretion Chief Deputy Sheriff - Proton Pump Inhibitors (PPIs) PARoxetine (PAXIL) 40 mg tablet Take 40 mg by mouth every morning. Antidepressant - Selective Serotonin Reuptake Inhibitors (SSRIs) tamsulosin (FLOMAX) 0.4 mg Take 0.4 mg by mouth. Prostatic Hypertrophy Agent - [id number] Antagonists Physical Activity: No formal program Diet: CHO Controlled Diet SMBG Frequency of Monitoring: Four times a Day Summary of Personal CGM Findings: Dates worn: 06/22/24-07/05/24 CGM Type: Enerkem 1- CGM recording is adequate for interpretation. Worn 93% of time. 2- Average glucose is 176 mg/dl. 3. 42% time in range 70-180mg/dL 4. Coefficient of variation: 61% 5. Total frequency of hypoglycemia: 18% with BG<70 * Hypoglycemia patterns: overnight and after meals *Nocturnal hypoglycemia n (more content not included)...[facility]12-23-2024 History of Present illness Narrative* Beto Oh MD - 07/03/2024 9:00 AM EST Images from the original note were not included. The patient is a follow-up from hospital. He is status post incision drainage of abdominal abscess by Dr. Sheridan. Patient continues on antibiotics. He has home health for dressing changes. He was initially on a wound VAC and has since been discontinued. On examination, he is awake alert and in no acute distress. Left abdominal incision site is clean. There is a small sliver of open area with pink granulation tissue. There is a scant amount of serous drainage. 1. Abdominal wall abscess Patient will continue with dressing changes. He has home health. Will follow up with Dr. Sheridan in 1-2 weeks. documented in this encounterSoutheast Missouri [facility] Treatment [id number] History of Present illness Narrative* Marie Westfall Ileana, DO - 06/19/2024 3:00 PM EST Images from the original note were not included. Manolo Vickers is a 89 y.o. male presents with chief complaint of Two-month office visit and Hospital Follow-up HPI: HPI History of Present Illness HISTORIES: PAST MEDICAL HISTORY: Past Medical History: Diagnosis Date Anastomotic ulcer Anxiety BPH (benign prostatic hyperplasia) COPD (chronic obstructive pulmonary disease) (CMS/HCC) Diabetes mellitus (CMS/HCC) 10/04/2019 Ground glass opacity present on imaging of lung 02/05/2023 Hypertension (CMS/HCC) ICD (implantable cardioverter-defibrillator) in place IPMN (intraductal papillary mucinous neoplasm) 06/23/2018 Added automatically from request for surgery [id number] Left ventricular dysfunction Lumbar spondylosis OA (osteoarthritis) Pancreatitis Hospitalized Rotator cuff tendonitis SURGICAL HISTORY: Past Surgical History: Procedure Laterality Date APPENDECTOMY 194 CERVICAL DISCECTOMY [address] ANGIOGRAM HEART CORONARY 01/21/2024 CT ANGIOGRAM TAVR 01/21/2024 FINE NEEDLE ASPIRATION 04/2018 HEART CATH 04/2023 heart cath HIP SURGERY Right 04/2023 right hip surgery OTHER SURGICAL HISTORY 04/2024 ICD placement PARTIAL HIP ARTHROPLASTY Right 04/12/2023 TX TONSILLECTOMY & ADENOIDECTOMY <AGE 14 SPLENECTOMY, 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 VASECTOMY 1989 SOCIAL HISTORY: Social History Tobacco Use Smoking status: Former Average packs/day: 0.3 packs/day for 30.0 years (7.5 ttl pk-yrs) Types: Cigarettes Start date: 07/12/1947 Smokeless tobacco: Never Tobacco comments: Has a history of cessation from smokin02/09/2018 Substance Use Topics Alcohol use: Yes Alcohol/week: 5.0 standard drinks of alcohol Types: 5 Glasses of wine per week Drug use: Never Depression: Not at risk (04/17/2024) PHQ-2 PHQ-2 Score: 0 Recent Concern: Depression - At risk (01/21/2024) Received from Gloss48 PHQ-2 Total Score: 3 FAMILY HISTORY: Family History Problem Relation Name Age of Onset Stroke Mother Ana No Known Problems Father at age 82 Leukemia Sister Carol at age 33 from leukemia Cancer Sister Carol Cancer Brother at age 75 from possible unknown cancer Other (synovial cell cancer) Son Cancer Son Saúl MEDICATIONS: Current Outpatient Medications Medication Instructions Acetaminophen Extra Strength 500 MG tablet Daily aspirin 81 mg, Daily atorvastatin (LIPITOR) 80 mg, Daily cephalexin (Keflex) 500 MG capsule 2 times daily cholecalciferol (Vitamin D-3) 50 MCG (1999 UT) tablet Daily cholecalciferol (VITAMIN D-3) 25 mcg, Daily RT glucose blood (Contour Next Test) test strip 1 each, Other, 3 times daily before meals, Use as instructed Insulin Disposable Pump (Omnipod DASH PDM, Gen 4,) kit Basal: 12A 0.3, 7A 0.4, 9P 0.5, 10 units breakfast, 8 units with lunch, 7 dinner, ISF: 75 insulin glargine (LANTUS) 12 Units, Subcutaneous, Nightly Lactobacillus (Probiotic Acidophilus) capsule 1 capsule, Every 24 hours Lantus SoloStar 18 Units, Nightly lisinopril 2.5 mg, Daily Lutein 6 mg, Daily metoprolol succinate XL (TOPROL-XL) 12.5 mg, 2 times daily Multiple Vitamins-Minerals (Centrum Silver 50+Men) tablet 1 tablet, Daily nitroglycerin (NITROSTAT) 0.4 mg NovoLOG FLEXPEN 100 UNIT/ML pen omeprazole (PRILOSEC) 20 mg, 2 times daily before meals pancrelipase, Yuj-Mymf-Vycu, (Creon) 48678-06168 units capsule TAKE 2 CAPSULES BY MOUTH DAILY WITH MEALS AND 1 CAPSULE BY MOUTH WITH SNACKS DIRECTED PARoxetine (PAXIL) 40 mg, Oral, Every morning ALLERGIES: No Known Allergies PHYSICAL EXAM: Visit Vitals Smoking Status Former BP Readings from Last 3 Encounters: 05/30/24 130/80 04/24/24 110/50 04/17/24 90/50 Wt Readings from Last 3 Encounters: 05/30/24 147 lb 04/17/24 145 lb 02/14/24 148 lb Physical Exam Physical Exam Does not appear ill HRRR PAULA at apex, no gallop/rub LCTA LLQ with large abscess , no drainage. POCUS Abd Cobblestoning skin, In large area abdominal wall , multiple septated anechoic regions Results ASSESSMENT AND PLAN: Assessment & Plan Diagnosis Plan 1. Abscess of abdominal wall incomplete I & D performed recent hospitalization-- it is a very large abscess as confirmed by POCUS 2. ICD (implantable cardioverter-defibrillator) in place 3. H/O splenectomy Places at risk sepsis -if encapsulated oraganism 4. 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 Chronic systolic CHF (congestive heart failure), NYHA class 2 (CMS/HCC) Stage 2 6. Acquired total absence of pancreas NEEDS INSULIN TO SURVIVE . Discussed with pt the absolute need for surgical intervention of this large abdominal wall abscess- Discussed with pt and with Hospitalist - needs surgical I&D and debridement , best done in surgical suite with hopefully Abdominal wall pain block as he is quite upset that during recent hospitalization , I & D done with inadequate local . 60' spent coordinating care ( I requested direct admission as opposed to ER) - talked with multiplepeople until Hospitalist . Reviewed recent hospitalization documented in this encounterSoutheast [facility] [id number] Evaluation note* Diagnosis Onset Date Resolution Status Admit Date Iron deficiency acute June 16, 2024 4:58pm Ischemic cardiomyopathy acute D ecember 2023 4:58pm S/P ICD (internal cardiac defibrillator) procedure acute Decembe r 2023 4:58pm Sinus bradycardia acute Decembe r 2023 4:58pm Abdominal abscess resolved Decembe r 2023 4:58pm Abdominal wall abscess resolved De 2023 4:58pm Type 1 diabetes mellitus acute June 19, 2024 6:26pm Abdominal abscess resolved Decembe r 2023 6:26pm Abdominal wall abscess resolved De 2023 6:26pm CAD (coronary artery disease) acute July 16, 2024 6:08pm Ischemic cardiomyopathy acute J anuary 2024 6:08pm S/P ICD (internal cardiac defibrillator) procedure acute July 16, 2024 6:08pm Type 1 diabetes mellitus acute July 16, 2024 6:08pm Acute exacerbation of CHF (congestive heart failure) resolved 2024 6:08pm COPD with acute exacerbation resolve d July 16, 2024 6:08pm Pleuritic chest pain resolved Zander 2024 6:08pm [facility] Work Phone: 1(240) 501-583012-06-2024 Evaluation note* Diagnosis Onset Date Resolution Status Admit Date Iron deficiency acute June 16, 2024 4:58pm Ischemic cardiomyopathy acute D ecember 2023 4:58pm S/P ICD (internal cardiac defibrillator) procedure acute Decembe r 2023 4:58pm Sinus bradycardia acute Decembe r 2023 4:58pm Abdominal abscess resolved Decembe r 2023 4:58pm Abdominal wall abscess resolved De cem2023 4:58pm Type 1 diabetes mellitus acute June 19, 2024 6:26pm Abdominal abscess resolved Decembe r 2023 6:26pm Abdominal wall abscess resolved De cember 2023 6:26pm CAD (coronary artery disease) acute July 16, 2024 6:08pm Ischemic cardiomyopathy acute J anuary 2024 6:08pm S/P ICD (internal cardiac defibrillator) procedure acute July 16, 2024 6:08pm Type 1 diabetes mellitus acute July 16, 2024 6:08pm Acute exacerbation of CHF (congestive heart failure) resolved 2024 6:08pm COPD with acute exacerbation resolve d July 16, 2024 6:08pm Pleuritic chest pain resolved Zander 2024 6:08pm Ischemic cardiomyopathy acute F ebruary 2024 9:56am Type 1 diabetes mellitus acute August 31, 2024 9:56am Acute GI bleeding resolved 2024 9:56am Coronary artery disease involving [place] coronary artery of [place] heart wi inactive 2024 9:56am Hypertension inactive August 9:56am S/P PTCA (percutaneous transluminal coronary angioplasty) inactive August 31, 2 025 9:56am [facility] Work Phone: 1(620) 764-987811-19-2024 History of Present illness Narrative* Marie Castro, DO - 05/30/2024 2:00 PM EST Images from the original note were not included. Manolo Vickers is a 89 y.o. male presents with chief complaint of Hospital Follow-up HPI: HPI History of Present Illness The patient presents for evaluation of multiple medical concerns. He is managing his insulin pump independently, with an upcoming appointment with his loan secretary on 07/06/2024. His blood sugar levels have been elevated, leading to frequent urination throughoutthe night. Previously, Dr. Gómez managed his pump, but it has been 4 to 5 months since their lastconsultation. He uses a Dexcom monitor to track his blood sugar levels, which have been fluctuating. His current regimen includes 6 units of NovoLog with breakfast and lunch, and 7 units with dinner,administered via an OmniPod. He also takes 18 units of Lantus at bedtime. Recently, he has experienced low blood sugar levels upon waking, with a reading as low as 44 in the past few weeks. To counteract these lows, he consumes apple or orange juice. He has a pacemaker and recently experienced a fall, resulting in a bruise over the device. His metoprolol dosage was increased from 2.5 mg twice daily to 50 mg twice daily, and then to 100 mg twice daily. However, he found the 100 mg dose too high and has since reduced it. He reports feeling fatigued and has a follow- up appointment with Dr. Beal on 06/21/2024. Flowsheet Row Patient Outreach from 05/29/2024 in [facility] with Alejandrina Santamaria LPN Hospital Information ED, Hospital or Custodial Facility Discharge? Hospital Patient has been contacted within two business days of discharge Yes Diagnosis ICD placement Discharge Date 05/25/24 Discharged To: Home Setting Discharge [facility] Engagement Call Start Time 1019 Admission Date 05/24/24 Medications Discharge medications reviewed and reconciled from hospital? Yes [Increased Metoptolol to 50 mg BID] Does the patient have all medications ordered at discharge? Yes Nursing Interventions Nurse provided patient education Is the patient taking all medications as directed (includes completed medication regime)? Yes Appointments Does the patient have a primary care provider? Yes Nursing Interventions Verified appointment date/time/provider Self Management Has home health visited the patient within 72 hours of discharge? Not applicable Patient Teaching Does the patient have access to their discharge instructions? Yes What is the patient's perception of their health status since discharge? Improving Wrap Up Call End Time 1021 HISTORIES: PAST MEDICAL HISTORY: Past Medical History: Diagnosis Date Anastomotic ulcer Anxiety BPH (benign prostatic hyperplasia) COPD (chronic obstructive pulmonary disease) (CMS/HCC) Diabetes mellitus (CMS/HCC) 10/04/2019 Ground glass opacity present on imaging of lung 02/05/2023 Hypertension ([facility]/HCC) ICD (implantable cardioverter-defibrillator) in place IPMN (intraductal papillary mucinous neoplasm) 06/23/2018 Added automatically from request for surgery [id number] Left ventricular dysfunction Lumbar spondylosis OA (osteoarthritis) Pancreatitis Hospitalized Rotator cuff tendonitis SURGICAL HISTORY: Past Surgical History: Procedure Laterality Date APPENDECTOMY 1948 CERVICAL DISCECTOMY [address] ANGIOGRAM HEART CORONARY 01/21/2024 CT ANGIOGRAM TAVR 01/21/2024 FINE NEEDLE ASPIRATION 04/2018 HEART CATH 04/2023 heart cath HIP SURGERY Right 04/2023 right hip surgery PARTIAL HIP ARTHROPLASTY Right 04/12/2023 TX TONSILLECTOMY & ADENOIDECTOMY <AGE 14 SPLENECTOMY, 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 VASECTOMY 1989 SOCIAL HISTORY: Social History Tobacco Use Smoking status: Former Average packs/day: 0.3 packs/day for 30.0 years (7.5 ttl pk-yrs) Types: Cigarettes Start date: 07/12/1947 Smokeless tobacco: Never Tobacco comments: Has a history of cessation from smokin02/09/2018 Substance Use Topics Alcohol use: Yes Alcohol/week: 5.0 standard drinks of alcohol Types: 5 Glasses of wine per week Drug use: Never Depression: Not at risk (04/17/2024) PHQ-2 PHQ-2 Score: 0 Recent Concern: Depression - At risk (01/21/2024) Received from Gloss48 PHQ-2 Total Score: 3 FAMILY HISTORY: Family History Problem Relation Name Age of Onset Stroke Mother Ana No Known Problems Father at age 82 Leukemia Sister Carol at age 33 from leukemia Cancer Sister Carol Cancer Brother at age 75 from possible unknown cancer Other (synovial cell cancer) Son Cancer Son Saúl MEDICATIONS: Current Outpatient Medications Medication Instructions Acetaminophen Extra Strength 500 MG tablet Daily aspirin 81 mg, Daily atorvastatin (LIPITOR) 80 mg, Daily cholecalciferol (VITAMIN D-3) 25 mcg, Daily RT glucose blood (Contour Next Test) test strip 1 each, Other, 3 times daily before meals, Use as instructed Insulin Disposable Pump (Omnipod DASH PDM, Gen 4,) kit Basal: 12A 0.3, 7A 0.4, 9P 0.5, 6 units breakfast/lunch, 7 dinner, ISF: 75 insulin glargine (LANTUS) 8 Units, Subcutaneous, Nightly Lactobacillus (Probiotic Acidophilus) capsule 1 capsule, Every 24 hours Lantus SoloStar 18 Units, Nightly Lutein 6 mg, Daily metoprolol succinate XL (TOPROL-XL) 12.5 mg, Oral, 2 times daily Multiple Vitamins-Minerals (Centrum Silver 50+Men) tablet 1 tablet, Daily nitroglycerin (NITROSTAT) 0.4 mg NovoLOG FLEXPEN 100 UNIT/ML pen omeprazole (PRILOSEC) 20 mg, 2 times daily before meals pancrelipase, Qoa-Lulu-Rrhh, (Creon) [id number] units capsule TAKE 2 CAPSULES BY MOUTH DAILY WITH MEALS AND 1 CAPSULE BY MOUTH WITH SNACKS DIRECTED PARoxetine (PAXIL) 40 mg, Oral, Every morning ALLERGIES: No Known Allergies PHYSICAL EXAM: Visit Vitals Smoking Status Former BP Readings from Last 3 Encounters: 04/24/24 110/50 04/17/24 90/50 02/14/24 (!) 100/42 Wt Readings from Last 3 Encounters: 04/17/24 145 lb 02/14/24 148 lb 01/17/24 146 lb Physical Exam Constitutional: Appearance: Normal appearance. Neck: Vascular: No carotid bruit. Cardiovascular: Rate and Rhythm: Normal rate and regular rhythm. Pulmonary: Effort: Pulmonary effort is normal. Breath sounds: Normal breath sounds. Abdominal: General: Bowel sounds are normal. Palpations: Abdomen is soft. Musculoskeletal: General: No swelling. Neurological: Mental Status: He is alert. Physical Exam Results Laboratory Studies Average blood sugar over 14 days is 267. Blood sugar was over 600 at the time of blood draw. ASSESSMENT AND PLAN: Assessment & Plan Suspect AM hypoglycemia w/ hyperglycemic response (Somogyi) coupled with excess sugary beverages totreat, Daytime sugars uncontrolled from insulin insufficiency Lantus dosage will be reduced to 16 units. NovoLog dosage will be adjusted to 10 units with breakfast, 8 units with lunch, and 7 units with dinner. Liz will monitor his blood glucose levels every few days to help regulate them over the next month until his appointment with the loan secretary on July 06, 2024. Endo apt at the end of June. Reviewed Dexcom device. Diagnosis Plan 1. ICD (implantable cardioverter-defibrillator) in place 2. Hospital discharge follow-up 3. 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(CMS/HCC) insulin glargine (Lantus) 100 UNIT/ML injection 4. 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 documented in this [facility]11-14-2024 [place] [address] Discharge Summary Signed Patient: Manolo Vickers MR#: [id number] : 1935 Acct:[id number] Age/Sex: 89 / M Adm Date: 4 Loc: Room: [address] [place] [address]: Abdulaziz Root MD Copies to: MD Marie Varner DO Soufian Almahameed, M.D.~ Providers Date of Discharge: 05/25/24 Discharging Provider: Chuck Velasco Primary Care Provider: Marie Castro Discharge Diagnosis (1) S/P ICD (internal cardiac defibrillator) procedure: (2) Ischemic cardiomyopathy: (3) Sinus bradycardia: (4) Non-ST elevation myocardial infarction (NSTEMI), subendocardial infarction, subsequent episode of care: Final Diagnosis Final Discharge Diagnosis: Ischemic cardiomyopathy status post ICD placement Summary Hospital Course Hospital course: Mr Vickers is an 88 year old male with past medical history significant for CAD s/p PCI to LAD and Diag 1, DM s/p pancreatectomy, BPH who initially presented [facility] in Apr 2023 following a mechanical fall and sustained right intertrochanteric hip fracture. He was found to have ischemic cardiomyopathy with an EF of 25-30%. He was on a LifeVest for 3 months after which LV function had not improved. He was therefore referred to electrophysiology for ICD assessment. He saw Dr. Root on 04/26/2024 for ASD assessment and met criteria for implantation. Implant was performed on 05/24/2024. Postopday one he has no complaints. ICD implantation site has no swelling, bruising or tenderness. Chest x-ray and ICD interrogation show normal pacemaker functioning and no pneumothorax. Now that he has apacemaker device his GDMT for heart failure will be uptitrated with increased dose of metoprolol. He has thus met criteria for discharge and will follow-up with his spa manager as well as electrophysiology in the pacemaker clinic. Time Spent with Patient Time spent providing/coordinating discharge services (# min): 30 Surgeries and Procedures Operation Date: 05/24/24 18:00 Actual Procedures p OR Pacemaker Insertion- Dual Chamber(Not Applicable) - Abdulaziz Root MD Discharge Plan Discharge Plan Patient Disposition: Home Additional Instructions: DISCHARGE INSTRUCTIONS FOR POST-PROCEDURE PACEMAKER: Activities: - Take the rest of today off and rest - Use the sling for one more day during the day. Use the sling when sleeping forthe next five days.Avoid using the sling after that. - No driving for one week. - Keep the affected arm from twisting movements. Do not put it behind your back for the next 3 weeks. - Do not lift more than 10 pounds with the affected arm for the next 3 weeks. Diet: - Resume your usual prescribed diet. Wound Care: - Remove the dressing after 3 days on 05/27/2024. - Do not remove the steri-strips. Leave the white steri-strips over the incision. These will fall off on their own over time. - Keep the incision site dry for one week. - Do not itch or touch the incision site. - You may take a sponge bath in the first 7 days without wetting the incision area; the incision must stay dry. - You may take a shower after 7 days on , 06/01/24. - Do not use ointment, cream, or lotion on the incision site. - Mild redness and puffiness are expected and should get better with time. - Any drainage from the incision, fever, chills, pain, and firm swelling requireimmediate medical attention and warrant a visit or at least a telephone call to notify the surgery team. Follow-up: - Wound care: after 10 days on June 01, 2024 at 1:00pm at [facility] - Device check: Will be scheduled at wound check appointment. Instructions: Know your Meds Prescriptions: New metoprolol succinate 50 mg Tablet Extended Release 24 Hr 50 mg PO BID 30 Days Qty: 60 3RF Continued atorvastatin 80 mg tablet 80 mg PO QHS 90 Days Qty: 90 1RF acetaminophen 500 mg Tablet 500 mg PO Q6HR PRN (Reason: pain) insulin glargine [Lantus Solostar U-100 Insulin] 100 unit/mL (3 mL) Insulin Pen 18 unit subcut HS insulin aspart U-100 [Novolog FlexPen U-100 Insulin] 100 unit/mL (3 mL) Insulin Pen See Protocol subcut TID.WM.HS Qty: 0 0RF Protocol: Corrective Scale #2 (TDI 26-50 UNITS) Condition: Corrective Scale #2 (TDI 26-50 UNITS) Condition: Dose/Route: Instruction: Condition: Fingerstick Blood Glucose Dose/Route: Insulin Units Condition: 150-199 mg/dl Dose/Route: 2 unit Condition: 200-249 mg/dl Dose/Route: 3 unit Condition: 250-299 mg/dl Dose/Route: 5 unit Condition: 300-349 mg/dl Dose/Route: 7 unit Condition: 350-399 mg/dl Dose/Route: 8 unit Condition: greater than or = 400 mg/dl Dose/Route: 9 unit Instruction: CallProvider Protocol Text: *If the corrective scale dose has been administered within the past 4 hours, do not use corrective scale again unless approved by prescriber* Patient Comments: 6 units with meals (TID) (DME) blood sugar diagnostic Strip Qty: 120 3RF Rx Instructions: Fingerstick blood sugar ACHS (DME) lancets Misc Qty: 120 3RF Rx Instructions: Fingerstick blood sugar ACHS (DME) pen needle, diabetic [BD Ultra-Fine Marichuy Pen Needle] 32 gauge x 5/32 needle Qty: 100 3RF Rx Instructions: Sliding scale, carb coverage, long acting insulin lisinopril 2.5 mg tablet 2.5 mg PO QAM omeprazole 20 mg capsule,delayed release(DR/EC) 20 mg PO BID Entresto 24-26 mg tablet 1 tab PO BID spironolactone 25 mg tablet 12.5 mg PO QAM tamsulosin 0.4 mg Capsule 0.4 mg PO QPM aspirin 81 mg Tablet,Delayed Release (Dr/Ec) 81 mg PO DAILY 30 Days Qty: 30 0RF nitroglycerin 0.4 mg Tablet, Sublingual 0.4 mg sublingual Q5M PRN (Reason: Chest Pain) 30 Days Qty: 30 0RF Creon 24,000-76,000 -120,000 unit Capsule,Delayed Release(Dr/Ec) 2 cap PO TID.WITH.MEALS 30 Days Qty: 120 0RF Creon 24,000-76,000 -120,000 unit capsule,delayed release(DR/EC) 1 cap PO TID PRN (Reason: gastrointestinal spasms or cramping) Rx Instructions: administer one cap with snacks paroxetine HCl 40 mg tablet 40 mg PO QAM loratadine [Claritin] 10 mg tablet 1 tab PO DAILY Rx Instructions: FreeTextSi tablet Orally Once a day; Note: Source Status: Taking; Provider: Houston Maradiaga ( ) cholecalciferol (vitamin D3) 125 mcg/0.5 mL (5K unit/0.5mL) drops 100 mcg PO DAILY lutein 6 mg capsule 6 mg PO DAILY Rx Instructions: give with meal/snack Centrum Adults 12 mcg tablet,chewable 1 tab PO DAILY Discontinued metoprolol succinate 25 mg tablet extended release 24 hr 12.5 mg PO BID Follow Up: Anat Perez MD [Active Staff] - 06/21/24 11:00 am Exam Physical Exam Vital Signs: Temp Pulse Resp BP Pulse Ox O2 Del Method O2 Flow Rate 98.0 F 60 16 151/96 H 97 Room Air 10 05/25/24 08:00 05/25/24 08:00 05/25/24 08:00 05/25/24 08:00 05/25/24 08:00 05/25/24 08:00 05/24/24 19:25 Narrative: Physical Exam: General: NAD, A&Ox3, Cooperative Head, Eyes: NC/AT, EOMI Lungs: Good air entry; No crackles/rhonchi/wheezes Chest: Left upper chest CIED Heart: S1S2 normal, Regular rhythm, No murmurs/rubs/gallop, No JVD Extremities: No edema. Abdomen: Soft, non-tender, non-distended. Neuro: CN grossly intact, No focal deficits. Psych: Normal mood & affect. Diagnostic Studies Completed and Pending Studies Labs on day of discharge: 05/25/24 07:18: POC Glucose 87 05/25/24 04:44: PHA Creatinine Clear 60.91, Sodium 138, Potassium 4.0, Chloride 103, Carbon Dmabjlw43.5, Anion Gap 11.5, BUN 19, Creatinine 0.75, Est GFR (CKD- EPI) > 60.0, Glucose 80, Calcium 8.6 05/24/24 20:20: POC Glucose 68 05/24/24 19:31: POC Glucose 87 05/24/24 16:40: PT 12.9, INR 1.1, APTT 30.1, PHA Creatinine Clear 61.04, Sodium 138, Potassium 3.9,Chloride 103, Carbon Dioxide 27.0, Anion Gap 11.9, BUN 22, Creatinine 0.82, Est GFR (CKD-EPI) > 60.0, Glucose 108 H, Calcium 8.8 05/24/24 16:36: POC Glucose 100 05/24/24 16:15: POC Glucose 55 L*, POC Glucose Comment Documented By: Chuck Velasco MD 05/12 11/02 1135 Signed By: 05/25/24 1139 [facility]11-14-2024 [place] [address] Cardiology Progress Note Signed Patient: Manolo Vickers MR#: [id number] : 1935 Acct:[id number] Age/Sex: 89 / M Adm Date: 4 Loc: 4 Room: 4V3156-7 Type: ADM IN Attending Dr: Abdulaziz Root MD Copies to: ~ Date of Service: 05/25/2024 Subjective Interval history: Pacemaker insertion site has no swelling, tenderness or oozing. Does have mild bruising which is expected. Chest x-ray is negative for pneumothorax. Pacemaker interrogation is normal. Telemetry: Regular paced rhythm. Exam Physical Exam Vital Signs: Temp Pulse Resp BP Pulse Ox O2 Del Method O2 Flow Rate 98.0 F 60 16 151/96 H 97 Room Air 10 05/25/24 08:00 05/25/24 08:00 05/25/24 08:00 05/25/24 08:00 05/25/24 08:00 05/25/24 08:00 05/24/24 19:25 Narrative: Physical Exam: General: NAD, A&Ox3, Cooperative Head, Eyes: NC/AT, EOMI Lungs: Good air entry; No crackles/rhonchi/wheezes Chest: Left upper chest CIED Heart: S1S2 normal, Regular rhythm, No murmurs/rubs/gallop, No JVD Extremities: No edema. Abdomen: Soft, non-tender, non-distended. Neuro: CN grossly intact, No focal deficits. Psych: Normal mood & affect. Objective Labs 05/25/24 04:44 Labs: Laboratory Results - last 24 hr 05/24/24 05/24/24 05/24/24 16:15 16:36 16:40 PT 12.9 INR 1.1 APTT 30.1 PHA Creatinine Clear 61.04 Sodium 138 Potassium 3.9 Chloride 103 Carbon Dioxide 27.0 Anion Gap 11.9 BUN 22 Creatinine 0.82 Est GFR (CKD-EPI) > 60.0 Glucose 108 H POC Glucose 55 L* 100 POC Glucose Comment Calcium 8.8 05/24/24 05/24/24 05/25/24 19:31 20:20 04:44 PT INR APTT PHA Creatinine Clear 60.91 Sodium 138 Potassium 4.0 Chloride 103 Carbon Dioxide 27.5 Anion Gap 11.5 BUN 19 Creatinine 0.75 Est GFR (CKD-EPI) > 60.0 Glucose 80 POC Glucose 87 68 POC Glucose Comment Calcium 8.6 05/25/24 07:18 PT INR APTT PHA Creatinine Clear Sodium Potassium Chloride Carbon Dioxide Anion Gap BUN Creatinine Est GFR (CKD-EPI) Glucose POC Glucose 87 POC Glucose Comment Calcium A&P - Cardiology (1) S/P ICD (internal cardiac defibrillator) procedure: Code(s): Z95.810 - Presence of automatic (implantable) cardiac defibrillator (2) Non-ST elevation myocardial infarction (NSTEMI), subendocardial infarction, subsequent episode of care: Code(s): I21.4 - Non-ST elevation (NSTEMI) myocardial infarction (3) Ischemic cardiomyopathy: Code(s): I25.5 - Ischemic cardiomyopathy (4) Sinus bradycardia: Code(s): R00.1 - Bradycardia, unspecified Plan # CAD s/p PCI in Jul 2023. 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 Current smoker. ECHO 03/09/2024: ECHO which showed persistently low EF 25-30% with anteroseptal and apical wall akinesis and moderate MR. -S/p ICD placement for primary prevention of SCD. -Increase metoprolol to 50 mg BID. Continue other elements of GDMT. -Okay to discharge home today. Documented By: Chuck Velasco MD 05/12 11/02 1035 Signed By: 05/25/24 1041 [facility]11-13-2024 Discharge summary Author Chuck Velasco [facility] Note Date/Time May 25, 2024 11:39am [facility] [address] [place] [address] Discharge Summary Signed Patient: Manolo Vickers MR#: [id number] : 1935 Acct:[id number] Age/Sex: 89 / M Adm Date: 4 Loc: Room: [address] [place] [address]: Abdulaziz Root MD Copies to: MD Marie Varner,DO Abdulaziz Root M.D.~ Providers Date of Discharge: 05/25/24 Discharging Provider: Chuck Velasco Primary Care Provider: Marie Castro Discharge Diagnosis (1) S/P ICD (internal cardiac defibrillator) procedure: (2) Ischemic cardiomyopathy: (3) Sinus bradycardia: (4) Non-ST elevation myocardial infarction (NSTEMI), subendocardial infarction, subsequent episode of care: Final Diagnosis Final Discharge Diagnosis: Ischemic cardiomyopathy status post ICD placement Summary Hospital Course Hospital course: Mr Vickers is an 88 year old male with past medical history significant for CAD s/p PCI to LAD and Diag 1, DM s/p pancreatectomy, BPH who initially presented [facility] in Apr 2023 following a mechanical fall and sustained right intertrochanteric hip fracture. He was found to have ischemic cardiomyopathy with an EF of 25-30%. He was on a LifeVest for 3 months after which LV function had not improved. He was therefore referred to electrophysiology for ICD assessment. He saw Dr. Root on 04/26/2024 for ASD assessment and met criteria for implantation. Implant was performed on 05/24/2024. Postop day one he has no complaints. ICD implantation site has no swelling, bruising or tenderness. Chest x-ray and ICD interrogation show normal pacemaker functioning and no pneumothorax. Now that he has a pacemaker device his GDMT for heart failure will be uptitrated with increased dose of metoprolol. He has thus met criteria for discharge and will follow-up with his spa manager as well as electrophysiology in the pacemaker clinic. Time Spent with Patient Time spent providing/coordinating discharge services (# min): 30 Surgeries and Procedures Operation Date: 05/24/24 18:00 Actual Procedures p OR Pacemaker Insertion- Dual Chamber(Not Applicable) - Abdulaziz Root MD Discharge Plan Discharge Plan Patient Disposition: Home Additional Instructions: DISCHARGE INSTRUCTIONS FOR POST-PROCEDURE PACEMAKER: Activities: - Take the rest of today off and rest - Use the sling for one more day during the day. Use the sling when sleeping forthe next five days. Avoid using the sling after that. - No driving for one week. - Keep the affected arm from twisting movements. Do not put it behind your back for the next 3 weeks. - Do not lift more than 10 pounds with the affected arm for the next 3 weeks. Diet: - Resume your usual prescribed diet. Wound Care: - Remove the dressing after 3 days on 05/27/2024. - Do not remove the steri-strips. Leave the white steri-strips over the incision. These will fall off on their own over time. - Keep the incision site dry for one week. - Do not itch or touch the incision site. - You may take a sponge bath in the first 7 days without wetting the incision area; the incision must stay dry. - You may take a shower after 7 days on , 06/01/24. - Do not use ointment, cream, or lotion on the incision site. - Mild redness and puffiness are expected and should get better with time. - Any drainage from the incision, fever, chills, pain, and firm swelling requireimmediate medical attention and warrant a visit or at least a telephone call to notify the surgery team. Follow-up: - Wound care: after 10 days on June 01, 2024 at 1:00pm at [facility] - Device check: Will be scheduled at wound check appointment. Instructions: Know your Meds Prescriptions: New metoprolol succinate 50 mg Tablet Extended Release 24 Hr 50 mg PO BID 30 Days Qty: 60 3RF Continued atorvastatin 80 mg tablet 80 mg PO QHS 90 Days Qty: 90 1RF acetaminophen 500 mg Tablet 500 mg PO Q6HR PRN (Reason: pain) insulin glargine [Lantus Solostar U-100 Insulin] 100 unit/mL (3 mL) Insulin Pen 18 unit subcut HS insulin aspart U-100 [Novolog FlexPen U-100 Insulin] 100 unit/mL (3 mL) Insulin Pen See Protocol subcut TID.WM.HS Qty: 0 0RF Protocol: Corrective Scale #2 (TDI 26-50 UNITS) Condition: Corrective Scale #2 (TDI 26-50 UNITS) Condition: Dose/Route: Instruction: Condition: Fingerstick Blood Glucose Dose/Route: Insulin Units Condition: 150-199 mg/dl Dose/Route: 2 unit Condition: 200-249 mg/dl Dose/Route: 3 unit Condition: 250-299 mg/dl Dose/Route: 5 unit Condition: 300-349 mg/dl Dose/Route: 7 unit Condition: 350-399 mg/dl Dose/Route: 8 unit Condition: greater than or = 400 mg/dl Dose/Route: 9 unit Instruction: CallProvider Protocol Text: *If the corrective scale dose has been administered within the past 4 hours, do not use corrective scale again unless approved by prescriber* Patient Comments: 6 units with meals (TID) (DME) blood sugar diagnostic Strip Qty: 120 3RF Rx Instructions: Fingerstick blood sugar ACHS (DME) lancets Misc Qty: 120 3RF Rx Instructions: Fingerstick blood sugar ACHS (DME) pen needle, diabetic [BD Ultra-Fine Marichuy Pen Needle] 32 gauge x 5/32 needle Qty: 100 3RF Rx Instructions: Sliding scale, carb coverage, long acting insulin lisinopril 2.5 mg tablet 2.5 mg PO QAM omeprazole 20 mg capsule,delayed release(DR/EC) 20 mg PO BID Entresto 24-26 mg tablet 1 tab PO BID spironolactone 25 mg tablet 12.5 mg PO QAM tamsulosin 0.4 mg Capsule 0.4 mg PO QPM aspirin 81 mg Tablet,Delayed Release (Dr/Ec) 81 mg PO DAILY 30 Days Qty: 30 0RF nitroglycerin 0.4 mg Tablet, Sublingual 0.4 mg sublingual Q5M PRN (Reason: Chest Pain) 30 Days Qty: 30 0RF Creon 24,000-76,000 -120,000 unit Capsule,Delayed Release(Dr/Ec) 2 cap PO TID.WITH.MEALS 30 Days Qty: 120 0RF Creon 24,000-76,000 -120,000 unit capsule,delayed release(DR/EC) 1 cap PO TID PRN (Reason: gastrointestinal spasms or cramping) Rx Instructions: administer one cap with snacks paroxetine HCl 40 mg tablet 40 mg PO QAM loratadine [Claritin] 10 mg tablet 1 tab PO DAILY Rx Instructions: FreeTextSi tablet Orally Once a day; Note: Source Status: Taking; Provider: Houston Maradiaga ( ) cholecalciferol (vitamin D3) 125 mcg/0.5 mL (5K unit/0.5mL) drops 100 mcg PO DAILY lutein 6 mg capsule 6 mg PO DAILY Rx Instructions: give with meal/snack Centrum Adults 12 mcg tablet,chewable 1 tab PO DAILY Discontinued metoprolol succinate 25 mg tablet extended release 24 hr 12.5 mg PO BID Follow Up: Anat Perez MD [Active Staff] - 06/21/24 11:00 am Exam Physical Exam Vital Signs: Temp Pulse Resp BP Pulse Ox O2 Del Method O2 Flow Rate 98.0 F 60 16 151/96 H 97 Room Air 10 05/25/24 08:00 05/25/24 08:00 05/25/24 08:00 05/25/24 08:00 05/25/24 08:00 05/25/24 08:00 05/24/24 19:25 Narrative: Physical Exam: General: NAD, A&Ox3, Cooperative Head, Eyes: NC/AT, EOMI Lungs: Good air entry; No crackles/rhonchi/wheezes Chest: Left upper chest CIED Heart: S1S2 normal, Regular rhythm, No murmurs/rubs/gallop, No JVD Extremities: No edema. Abdomen: Soft, non-tender, non-distended. Neuro: CN grossly intact, No focal deficits. Psych: Normal mood & affect. Diagnostic Studies Completed and Pending Studies Labs on day of discharge: 05/25/24 07:18: POC Glucose 87 05/25/24 04:44: PHA Creatinine Clear 60.91, Sodium 138, Potassium 4.0, Chloride 103, Carbon Dioxide 27.5, Anion Gap 11.5, BUN 19, Creatinine 0.75, Est GFR (CKD-EPI) > 60.0, Glucose 80, Calcium 8.6 05/24/24 20:20: POC Glucose 68 05/24/24 19:31: POC Glucose 87 05/24/24 16:40: PT 12.9, INR 1.1, APTT 30.1, PHA Creatinine Clear 61.04, Sodium 138, Potassium 3.9, Chloride 103, Carbon Dioxide 27.0, Anion Gap 11.9, BUN 22, Creatinine 0.82, Est GFR (CKD-EPI) > 60.0, Glucose 108 H, Calcium 8.8 05/24/24 16:36: POC Glucose 100 05/24/24 16:15: POC Glucose 55 L*, POC Glucose Comment Documented By: Chuck Velasco MD 05/12 11/02 1135 Signed By: <Electronically signed by Chuck Velasco MD> 05/25/24 1139 [facility] Work Phone: [phone] 961-497610-16-2024 Evaluation note* Author Anat Powelloroge [facility] Authored April 26, 2024 3 :55pm # CAD s/p PCI in Jul 2023. 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 Current smoker. [facility] 04/30/23 - Two-vessel coronary artery disease- 100% prox LAD occlusion; 80% D1; LCx has 50% prox stenosis with 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 Echo 04/28/23 - EF 40-45%, mild LVH, trace MR and TR. [facility] 07/16/22 - Successful PCI ostial/proximal LAD-diagonal branch; true CHIEF PHYSICAL THERAPIST proximal/mid LAD (attempted wiring with balloon). EKG 09/07/23 - sinus peace 56 bpm, anterolateral TWI. EKG 09/08/23 - sinus peace 58 bpm, anterolateral and inferior TWI. ECHO in January [address] [facility] ([place], [place]): EF 30-35% ECHO 03/09/2024: ECHO which showed persistently low EF 25-30% with anteroseptal and apical wall akinesis and moderate MR. Plan: - Doing well today. He was not able to tolerate Lisinopril due to hypotension. He feels well since this was discontinued. BP is above goal today. - GDMT: Unable to tolerate ACEi/ARNI; Continue spironolactone to 12.5mg daily & Jardiance 10mg daily. - 2 week nurse visit for BP check. He will also get labs done- BMP and BNP prior - Continues to wear LifeVest. Pt was evaluated by EP today. He is planned for ICD for primary SCD prevention - Follow up in 2 months in HF clinic. [facility] Work Phone: [phone]) 961-227910-16-2024 Evaluation note* Author Anat Powelloroge [facility] Authored April 26, 2024 2 :55pm # CAD s/p PCI in Jul 2023. 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 Current smoker. [facility] 04/30/23 - Two-vessel coronary artery disease- 100% prox LAD occlusion; 80% D1; LCx has 50% prox stenosis with 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 Echo 04/28/23 - EF 40-45%, mild LVH, trace MR and TR. [facility] 07/16/22 - Successful PCI ostial/proximal LAD-diagonal branch; true CHIEF PHYSICAL THERAPIST proximal/mid LAD (attempted wiring with balloon). EKG 09/07/23 - sinus epace 56 bpm, anterolateral TWI. EKG 09/08/23 - sinus peace 58 bpm, anterolateral and inferior TWI. ECHO in January [address] [facility] ([place], [place]): EF 30-35% ECHO 03/09/2024: ECHO which showed persistently low EF 25-30% with anteroseptal and apical wall akinesis and moderate MR. Plan: - Doing well today. He was not able to tolerate Lisinopril due to hypotension. He feels well since this was discontinued. BP is above goal today. - GDMT: Unable to tolerate ACEi/ARNI; Continue spironolactone to 12.5mg daily & Jardiance 10mg daily. - 2 week nurse visit for BP check. He will also get labs done- BMP and BNP prior - Continues to wear LifeVest. Pt was evaluated by EP today. He is planned for ICD for primary SCD prevention - Follow up in 2 months in HF clinic. [facility] Work Phone: [phone] 895-943410-16-2024 Chief complaint+Reason for visit Narrative * Chief Complaint Admit Date evaluation for ICD April 26, 2024 1 0:19am evaluation for ICD April 26, 2024 1 0:23am [facility] April 26, 2024 1 :15pm BP WITH ORTHO May 10, 2024 1 0:52am Cardiomyopathy May 16, 2024 1 1:59am Cardiomyopathy May 24, 2024 7:21pm Cardiomyopathy May 24, 2024 8:30pm Cardiomyopathy May 25, 2024 12:00am Cardiomyopathy May 25, 2024 10:35am abd pain-swelling June 16, 2024 4 :58pm Abdominal Wall abcess June 19, 2024 6:26pm Abdominal Wall abcess June 20 12:00am chest pain July 16, 2024 6: 08pm Reason for Visit Admit Date Ischemic cardiomyopathy April 26 10:23am Sinus bradycardia April 26, 2024 1 0:23am Non-ST elevation myocardial infarction (NSTEMI), subendocardial infarction, April 26, 2024 10:23am H pylori ulcer April 26, 2024 1 :15pm Iron deficiency April 26, 2024 1 :15pm Ischemic cardiomyopathy April 26 1:15pm Non-ST elevation myocardial infarction (NSTEMI), subendocardial infarction, April 26, 2024 1:15pm Ischemic cardiomyopathy May 10 10:52am Ischemic cardiomyopathy May 24, 2 024 8:30pm S/P ICD (internal cardiac defibrillator) procedure May 24, 2024 8:30pm Sinus bradycardia May 24, 2024 8:30pm Non-ST elevation myocardial infarction (NSTEMI), subendocardial infarction, May 24, 2024 8:30pm Iron deficiency June 16, 2024 4 :58pm Ischemic cardiomyopathy June 16 4:58pm S/P ICD (internal cardiac defibrillator) procedure June 16, 2024 4:58pm Sinus bradycardia June 16, 2024 4 :58pm Abdominal abscess June 16, 2024 4 :58pm Abdominal wall abscess June 16 4:58pm Type 1 diabetes mellitus June 19, 024 6:26pm Abdominal abscess June 19, 2024 6 :26pm Abdominal wall abscess June 19 6:26pm Acute exacerbation of CHF (congestive he art failure) July 16, 2024 6:08pm CAD (coronary artery disease) July 6:08pm COPD with acute exacerbation July 6:08pm Ischemic cardiomyopathy July 16 6:08pm Pleuritic chest pain July 16, 2024 6 :08pm S/P ICD (internal cardiac defibrillator) procedure July 16, 2024 6:08pm Type 1 diabetes mellitus July 16 6:08pm [facility] Work Phone: 1(448) 320-538910-16-2024 Chief complaint+Reason for visit Narrative * Chief Complaint Admit Date evaluation for ICD April 26, 2024 1 0:19am evaluation for ICD April 26, 2024 1 0:23am HFC April 26, 2024 1 :15pm BP WITH ORTHO May 10, 2024 1 0:52am Cardiomyopathy May 16, 2024 1 1:59am Cardiomyopathy May 24, 2024 7:21pm Cardiomyopathy May 24, 2024 8:30pm Cardiomyopathy May 25, 2024 12:00am Cardiomyopathy May 25, 2024 10:35am abd pain-swelling June 16, 2024 4 :58pm Abdominal Wall abcess June 19, 2024 6:26pm Abdominal Wall abcess June 20 12:00am chest pain July 16, 2024 6: 08pm chest pain July 17, 2024 4: 37pm Reason for Visit Admit Date Ischemic cardiomyopathy April 26 10:23am Sinus bradycardia April 26, 2024 1 0:23am Non-ST elevation myocardial infarction (NSTEMI), subendocardial infarction, April 26, 2024 10:23am H pylori ulcer April 26, 2024 1 :15pm Iron deficiency April 26, 2024 1 :15pm Ischemic cardiomyopathy April 26 1:15pm Non-ST elevation myocardial infarction (NSTEMI), subendocardial infarction, April 26, 2024 1:15pm Ischemic cardiomyopathy May 10 10:52am Ischemic cardiomyopathy May 24, 2 024 8:30pm S/P ICD (internal cardiac defibrillator) procedure May 24, 2024 8:30pm Sinus bradycardia May 24, 2024 8:30pm Non-ST elevation myocardial infarction (NSTEMI), subendocardial infarction, May 24, 2024 8:30pm Iron deficiency June 16, 2024 4 :58pm Ischemic cardiomyopathy June 16 4:58pm S/P ICD (internal cardiac defibrillator) procedure June 16, 2024 4:58pm Sinus bradycardia June 16, 2024 4 :58pm Abdominal abscess June 16, 2024 4 :58pm Abdominal wall abscess June 16 4:58pm Type 1 diabetes mellitus June 19, 2 024 6:26pm Abdominal abscess June 19, 2024 6 :26pm Abdominal wall abscess June 19 6:26pm Acute exacerbation of CHF (congestive he art failure) July 16, 2024 6:08pm CAD (coronary artery disease) July 6:08pm COPD with acute exacerbation July 6:08pm Ischemic cardiomyopathy July 16 6:08pm Pleuritic chest pain July 16, 2024 6 :08pm S/P ICD (internal cardiac defibrillator) procedure July 16, 2024 6:08pm Type 1 diabetes mellitus July 16 6:08pm [facility] Work Phone: 1(564) 479-963210-14-2024 History of Present illness Narrative* Agnes Moreno LPN - 04/24/2024 4:00 PM EDT Images from the original note were not included. Manolo Vickers is a 89 y.o. male presents with chief complaint of One-week office visit (Today patient reports he is feeling better after taking the atb.) HPI: HPI History of Present Illness HISTORIES: PAST MEDICAL HISTORY: Past Medical History: Diagnosis Date Anastomotic ulcer Anxiety BPH (benign prostatic hyperplasia) COPD (chronic obstructive pulmonary disease) (CMS/HCC) Diabetes mellitus (CMS/HCC) 10/04/2019 Ground glass opacity present on imaging of lung 02/05/2023 Hypertension (CMS/HCC) IPMN (intraductal papillary mucinous neoplasm) 06/23/2018 Added automatically from request for surgery [id number] Left ventricular dysfunction Lumbar spondylosis OA (osteoarthritis) Pancreatitis Hospitalized Rotator cuff tendonitis SURGICAL HISTORY: Past Surgical History: Procedure Laterality Date APPENDECTOMY 1949 CERVICAL DISCECTOMY [address] ANGIOGRAM HEART CORONARY 01/21/2024 CT ANGIOGRAM TAVR 01/21/2024 FINE NEEDLE ASPIRATION 04/2018 HEART CATH 04/2023 heart cath HIP SURGERY Right 04/2023 right hip surgery PARTIAL HIP ARTHROPLASTY Right 04/12/2023 TX TONSILLECTOMY & ADENOIDECTOMY <AGE 14 SPLENECTOMY, 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 VASECTOMY 1989 SOCIAL HISTORY: Social History Tobacco Use Smoking status: Former Average packs/day: 0.3 packs/day for 30.0 years (7.5 ttl pk-yrs) Types: Cigarettes Start date: 07/12/1947 Smokeless tobacco: Never Tobacco comments: Has a history of cessation from smokin02/09/2018 Substance Use Topics Alcohol use: Yes Alcohol/week: 5.0 standard drinks of alcohol Types: 5 Glasses of wine per week Drug use: Never Depression: Not at risk (04/17/2024) PHQ-2 PHQ-2 Score: 0 Recent Concern: Depression - At risk (01/21/2024) Received from [facility] PHQ-2 Total Score: 3 FAMILY HISTORY: Family History Problem Relation Name Age of Onset Stroke Mother Ana No Known Problems Father at age 82 Leukemia Sister Carol at age 33 from leukemia Cancer Sister Carol Cancer Brother at age 75 from possible unknown cancer Other (synovial cell cancer) Son Cancer Son Saúl MEDICATIONS: Current Outpatient Medications Medication Instructions Acetaminophen Extra Strength 500 MG tablet Daily aspirin 81 mg, Daily atorvastatin (LIPITOR) 80 mg, Daily cetirizine (ZYRTEC) 10 mg, Daily RT cholecalciferol (VITAMIN D-3) 25 mcg, Daily RT empagliflozin (JARDIANCE) 10 mg, Daily glucose blood (Contour Next Test) test strip 1 each, Other, 3 times daily before meals, Use as instructed Insulin Disposable Pump (Omnipod DASH PDM, Gen 4,) kit Basal: 12A 0.3, 7A 0.4, 9P 0.5, 6 units breakfast/lunch, 7 dinner, ISF: 75 insulin glargine (LANTUS) 8 Units, Subcutaneous, Nightly Lactobacillus (Probiotic Acidophilus) capsule 1 capsule, Every 24 hours Lantus SoloStar 18 Units, Nightly lisinopril 2.5 mg, Oral, Daily Lutein 6 mg, Daily metoprolol succinate XL (TOPROL-XL) 12.5 mg, 2 times daily Multiple Vitamins-Minerals (Centrum Silver 50+Men) tablet 1 tablet, Daily nitroglycerin (NITROSTAT) 0.4 mg NovoLOG FLEXPEN 100 UNIT/ML pen omeprazole (PRILOSEC) 20 mg, 2 times daily before meals pancrelipase, Wiu-Xfby-Deuc, (Creon) 22578-42405 units capsule TAKE 2 CAPSULES BY MOUTH DAILY WITH MEALS AND 1 CAPSULE BY MOUTH WITH SNACKS DIRECTED PARoxetine (PAXIL) 40 mg, Oral, Every morning spironolactone (ALDACTONE) 12.5 mg, Daily sucralfate (CARAFATE) 1 g, Every 6 hours scheduled tamsulosin (Flomax) 0.4 MG 24 hr capsule TAKE 1 CAPSULE BY MOUTH EVERY DAY IN THE MORNING ALLERGIES: No Known Allergies PHYSICAL EXAM: Visit Vitals BP 100/50 Pulse 50 SpO2 90% Smoking Status Former BP Readings from Last 3 Encounters: 04/24/24 100/50 04/17/24 90/50 02/14/24 (!) 100/42 Wt Readings from Last 3 Encounters: 04/17/24 145 lb 02/14/24 148 lb 01/17/24 146 lb Physical Exam Physical Exam Results ASSESSMENT AND PLAN: Assessment & Plan * Anatoly Anne NP - 04/24/2024 4:00 PM EDT Images from the original note were not included. Manolo Vickers is a 89 y.o. male presents with chief complaint of One-week office visit (Today patient reports he is feeling better after taking the atb.) HPI: HPI History of Present Illness The patient is an 89-year-old male who presents for evaluation of multiple medical concerns. He is experiencing difficulty managing his blood sugar levels, which are either too high or too low. He is under the care of Dr. Gómez for this issue. He experiences lightheadedness when standing up quickly or attempting to walk. To prevent this, he stands up and relaxes for a minute before walking. He reports no issues with coughing. He has been in contact with his structural rigger, but has notreceived any further communication. He was informed that a scope procedure was not necessary. He has an upcoming appointment with Dr. Ramirez in a week. He has completed his course of Augmentin. He has a LifeVest and is hoping that Dr. Way will tell him to get rid of it soon. IMMUNIZATIONS He had RSV vaccine in 05/2023. He had influenza and pneumonia vaccines. He had both COVID-19 boosters. HISTORIES: PAST MEDICAL HISTORY: Past Medical History: Diagnosis Date Anastomotic ulcer Anxiety BPH (benign prostatic hyperplasia) COPD (chronic obstructive pulmonary disease) (CMS/HCC) Diabetes mellitus (CMS/HCC) 10/04/2019 Ground glass opacity present on imaging of lung 02/05/2023 Hypertension (CMS/HCC) IPMN (intraductal papillary mucinous neoplasm) 06/23/2018 Added automatically from request for surgery [id number] Left ventricular dysfunction Lumbar spondylosis OA (osteoarthritis) Pancreatitis Hospitalized Rotator cuff tendonitis SURGICAL HISTORY: Past Surgical History: Procedure Laterality Date APPENDECTOMY 194 CERVICAL DISCECTOMY [address] ANGIOGRAM HEART CORONARY 01/21/2024 CT ANGIOGRAM TAVR 01/21/2024 FINE NEEDLE ASPIRATION 04/2018 HEART CATH 04/2023 heart cath HIP SURGERY Right 04/2023 right hip surgery PARTIAL HIP ARTHROPLASTY Right 04/12/2023 TX TONSILLECTOMY & ADENOIDECTOMY <AGE 14 SPLENECTOMY, 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 VASECTOMY 1989 SOCIAL HISTORY: Social History Tobacco Use Smoking status: Former Average packs/day: 0.3 packs/day for 30.0 years (7.5 ttl pk-yrs) Types: Cigarettes Start date: 07/12/1949 Smokeless tobacco: Never Tobacco comments: Has a history of cessation from smokin02/09/2018 Substance Use Topics Alcohol use: Yes Alcohol/week: 5.0 standard drinks of alcohol Types: 5 Glasses of wine per week Drug use: Never Depression: Not at risk (04/17/2024) PHQ-2 PHQ-2 Score: 0 Recent Concern: Depression - At risk (01/21/2024) Received from [facility] PHQ-2 Total Score: 3 FAMILY HISTORY: Family History Problem Relation Name Age of Onset Stroke Mother Ana No Known Problems Father at age 82 Leukemia Sister Carol at age 33 from leukemia Cancer Sister Carol Cancer Brother at age 75 from possible unknown cancer Other (synovial cell cancer) Son Cancer Son Saúl MEDICATIONS: Current Outpatient Medications Medication Instructions Acetaminophen Extra Strength 500 MG tablet Daily aspirin 81 mg, Daily atorvastatin (LIPITOR) 80 mg, Daily cetirizine (ZYRTEC) 10 mg, Daily RT cholecalciferol (VITAMIN D-3) 25 mcg, Daily RT empagliflozin (JARDIANCE) 10 mg, Daily glucose blood (Contour Next Test) test strip 1 each, Other, 3 times daily before meals, Use as instructed Insulin Disposable Pump (Omnipod DASH PDM, Gen 4,) kit Basal: 12A 0.3, 7A 0.4, 9P 0.5, 6 units breakfast/lunch, 7 dinner, ISF: 75 insulin glargine (LANTUS) 8 Units, Subcutaneous, Nightly Lactobacillus (Probiotic Acidophilus) capsule 1 capsule, Every 24 hours Lantus SoloStar 18 Units, Nightly lisinopril 2.5 mg, Oral, Daily Lutein 6 mg, Daily metoprolol succinate XL (TOPROL-XL) 12.5 mg, Oral, 2 times daily Multiple Vitamins-Minerals (Centrum Silver 50+Men) tablet 1 tablet, Daily nitroglycerin (NITROSTAT) 0.4 mg NovoLOG FLEXPEN 100 UNIT/ML pen omeprazole (PRILOSEC) 20 mg, 2 times daily before meals pancrelipase, Oxt-Asxq-Flgq, (Creon) [id number] units capsule TAKE 2 CAPSULES BY MOUTH DAILY WITH MEALS AND 1 CAPSULE BY MOUTH WITH SNACKS DIRECTED PARoxetine (PAXIL) 40 mg, Oral, Every morning spironolactone (ALDACTONE) 12.5 mg, Daily sucralfate (CARAFATE) 1 g, Every 6 hours scheduled tamsulosin (Flomax) 0.4 MG 24 hr capsule TAKE 1 CAPSULE BY MOUTH EVERY DAY IN THE MORNING ALLERGIES: No Known Allergies PHYSICAL EXAM: Visit Vitals BP 100/50 Pulse 50 SpO2 90% Smoking Status Former BP Readings from Last 3 Encounters: 04/24/24 100/50 04/17/24 90/50 02/14/24 (!) 100/42 Wt Readings from Last 3 Encounters: 04/17/24 145 lb 02/14/24 148 lb 01/17/24 146 lb Physical Exam Constitutional: Appearance: Normal appearance. Neck: Vascular: No carotid bruit. Cardiovascular: Rate and Rhythm: Normal rate and regular rhythm. Comments: No JVD No leg edema Pulmonary: Effort: Pulmonary effort is normal. Breath sounds: Normal breath sounds. Comments: Intermittent moist cough in office Musculoskeletal: General: No swelling. Neurological: Mental Status: He is alert. Physical Exam Vital Signs Blood pressure measures at 100/50. Results ASSESSMENT AND PLAN: Assessment & Plan Suspect Aspiration Pneumonia. He was recently hospitalized due to aspiration pneumonia and has completed his course of Augmentin.He reports no further problems with coughing. 2. Gastrointestinal Ulcer. He had an appointment with Kulwant ESPINAL on 04/05/2024. There was a discussion about scheduling an EGD,but it has not been scheduled yet. Dr. Castro wrote a letter to the GI office to ensure the EGD isscheduled. FABIEN Pinto, will assist in communicating with the [facility] office to schedule the EGD. 3. Heart Failure. He is on the lowest doses of heart failure medications, which may be contributing to his low blood pressure and heart rate. He reports feeling lightheaded if he stands up quickly. He has been advisedto maintain adequate hydration to prevent dehydration. He is currently wearing a LifeVest and is bre iting further instructions from Dr. Ramirez regarding its discontinuation. 4. Diabetes Mellitus. He has a complicated diabetes management due to the absence of his pancreas, resulting in fluctuating blood sugar levels. A referral to an loan secretary, Dr. Liyah Yeung, has been made to better manage his diabetes. 5. Health Maintenance. He received the RSV vaccine in May 2023, which is effective for at least two years. He does not need another dose this year. He has received the flu shot and pneumonia shot. A booster dose of the pneumonia vaccine will be administered next year. Follow-up Return in early June 2024 for follow-up. Diagnosis Plan 1. Pancreatic insufficiency (CMS/HCC) Ambulatory referral to Endocrinology 2. Coronary arteriosclerosis (CMS/HCC) metoprolol succinate XL (Toprol-XL) 25 MG 24 hr tablet 3. 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(CMS/HCC) Ambulatory referral to Endocrinology 4. 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 I am following Dr Castro's established plan of care for these issues. Dr Castro is in the office suite today and is supervising patient care. documented in this encounterSoutheast Missouri Community Treatment [id number] History of Present illness Narrative* Marie Castro, - 04/17/2024 10:30 AM EDT Images from the original note were not included. Manolo Vickers is a 89 y.o. male presents with chief complaint of Medicare Annual Wellness Visit Subsequent and Three-month ov HPI: HPI History of Present Illness The patient is an 89-year-old male who presents for evaluation of multiple medical concerns. He is accompanied by his Two weeks ago was prescribed Jardiance, along with his usual insulin,in pump and Lantus. His morning blood sugars are typically low. He experiences dry mouth when his glucose levels are high, which he manages by drinking ample water. He engages in regular physical activity due to frequent urination and bowel movements. If he doesn't have bowel movements, he urinates frequently throughout the night. His blood sugar levels tend todrop quickly, sometimes reaching the 40s for several days, but subsequently normalizing. Despite maintaining a healthy diet, his blood sugar levels remain low. He uses a sensor to monitor his blood sugar levels. He has had two instances of bleeding at the site of his previous surgery. One month ago, he was so weak that he could not rise from bed, requiring EMS services. He was initially prescribed medication, which improved his symptoms. However, his stool was black, leading to his transfer to [facility]. He had an ulnar fracture and a heart attack at that time. He was discharged with a LifeVest. He was diagnosed with peptic ulcer disease due to H. pylori and nonsteroidal use. He continues to take Creon every 6 hours and Pepto-Bismol before meals. He has had a cough for some time, which initially felt like a cold with congestion. He takes Zyrtecdaily, which seems to be effective. He does not cough while eating or sleeping. His cough is productive, producing yellowish phlegm. He has no history of allergies. He works outside frequently. He experiences lightheadedness and dizziness upon standing. He has had 5 iron infusions. He takes Tylenol, aspirin, Lipitor, vitamin D, lutein, metoprolol, vitamins, Prilosec, Paxil, Aldactone, sulfa, and tamsulosin. SOCIAL HISTORY He is not smoking anymore. IMMUNIZATIONS He received his influenza vaccine today. CURRENT PCP/CARE TEAM: Patient Care Team: Marie Castro DO as PCP - General (Internal Medicine) Marie Castro DO as PCP - ACO Reach Patrick Beard MD as Referring Physician (Gastroenterology) Andrey Grullon MD as Referring Physician (Neurology) Dr Anat Ramirez Cardiology Dr Gómez Endocrine HISTORIES: PAST MEDICAL HISTORY: Past Medical History: Diagnosis Date Anastomotic ulcer Anxiety BPH (benign prostatic hyperplasia) COPD (chronic obstructive pulmonary disease) (CMS/HCC) Diabetes mellitus (CMS/HCC) 10/04/2019 Ground glass opacity present on imaging of lung 02/05/2023 Hypertension (CMS/HCC) IPMN (intraductal papillary mucinous neoplasm) 06/23/2018 Added automatically from request for surgery [id number] Left ventricular dysfunction Lumbar spondylosis OA (osteoarthritis) Pancreatitis Hospitalized Rotator cuff tendonitis SURGICAL HISTORY: Past Surgical History: Procedure Laterality Date APPENDECTOMY 1948 CERVICAL DISCECTOMY [address] ANGIOGRAM HEART CORONARY 01/21/2024 CT ANGIOGRAM TAVR 01/21/2024 FINE NEEDLE ASPIRATION 04/2018 HEART CATH 04/2023 heart cath HIP SURGERY Right 04/2023 right hip surgery PARTIAL HIP ARTHROPLASTY Right 04/12/2023 TX TONSILLECTOMY & ADENOIDECTOMY <AGE 14 SPLENECTOMY, 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 STOMACH SURGERY 12/2021 Stomach Ulcer Surgery - [facility] VASECTOMY 1989 SOCIAL HISTORY: Social History Tobacco Use Smoking status: Former Average packs/day: 0.3 packs/day for 30.0 years (7.5 ttl pk-yrs) Types: Cigarettes Start date: 07/12/1949 Smokeless tobacco: Never Tobacco comments: Has a history of cessation from smokin02/09/2018 Substance Use Topics Alcohol use: Yes Alcohol/week: 5.0 standard drinks of alcohol Types: 5 Glasses of wine per week Drug use: Never Depression: Not at risk (04/05/2024) Received from [facility] PHQ-2 Patient Health Questionnaire-2 Score: 0 Recent Concern: Depression - At risk (01/21/2024) Received from [facility] PHQ-2 Total Score: 3 FAMILY HISTORY: Family History Problem Relation Name Age of Onset Stroke Mother Ana No Known Problems Father at age 82 Leukemia Sister Carol at age 33 from leukemia Cancer Sister Carol Cancer Brother at age 75 from possible unknown cancer Other (synovial cell cancer) Son Cancer Son Saúl MEDICATIONS: Current Outpatient Medications Medication Instructions Acetaminophen Extra Strength 500 MG tablet Daily aspirin 81 mg, Oral, Daily atorvastatin (LIPITOR) 80 mg, Oral, Daily cetirizine (ZYRTEC) 10 mg, Oral, Daily RT cholecalciferol (VITAMIN D-3) 25 mcg, Oral, Daily RT glucose blood (Contour Next Test) test strip 1 each, Other, 3 times daily before meals, Use as instructed Insulin Disposable Pump (Omnipod DASH PDM, Gen 4,) kit Basal: 12A 0.3, 7A 0.4, 9P 0.5, 6 units breakfast/lunch, 7 dinner, ISF: 75 insulin glargine (LANTUS) 8 Units, Subcutaneous, Nightly Lactobacillus (Probiotic Acidophilus) capsule 1 capsule, Every 24 hours Lantus SoloStar 100 UNIT/ML pen Subcutaneous Lutein 6 mg, Oral, Daily metoprolol succinate XL (TOPROL-XL) 12.5 mg, Oral, Daily Multiple Vitamins-Minerals (Centrum Silver 50+Men) tablet 1 tablet, Oral, Daily nitroglycerin (NITROSTAT) 0.4 mg, Sublingual NovoLOG FLEXPEN 100 UNIT/ML pen pancrelipase, Cng-Nepo-Kaem, (Creon) [id number] units capsule TAKE 2 CAPSULES BY MOUTH DAILY WITH MEALS AND 1 CAPSULE BY MOUTH WITH SNACKS DIRECTED pantoprazole (PROTONIX) 40 mg, Oral PARoxetine (PAXIL) 30 mg, Oral, Every morning PARoxetine (PAXIL) 40 mg, Oral, Every morning sacubitril-valsartan (Entresto) 24-26 MG tablet 1 tablet, Oral, 2 times daily spironolactone (ALDACTONE) 25 mg, Oral, Daily sucralfate (CARAFATE) 1 g, Oral, Every 6 hours scheduled tamsulosin (Flomax) 0.4 MG 24 hr capsule TAKE 1 CAPSULE BY MOUTH EVERY DAY IN THE MORNING ALLERGIES: No Known Allergies PHYSICAL EXAM: Visit Vitals Smoking Status Former BP Readings from Last 3 Encounters: 02/14/24 (!) 100/42 01/17/24 110/60 12/13/23 120/60 Wt Readings from Last 3 Encounters: 02/14/24 148 lb 01/17/24 146 lb 12/13/23 146 lb Physical Exam Physical Exam He appears chronically ill RR normal Apical impulse is diffuse , soft S3 Right lung exhibits rhonci/rales mid lung Abdomen scaphoid nontender Mood/affect approrpitae Cognition normal- clock draw normal Up and go normal Balance normal Gait/gait speed normal Vital Signs Heart rate is 44. Blood pressure is 118 systolic while lying, but drops to 80 upon standing. Results Laboratory Studies A1c is 9.8%. ASSESSMENT AND PLAN: Assessment & Plan Diagnosis Plan 1. Bronchitis amoxicillin-clavulanate (Augmentin) 875-125 MG tablet rx with augmentin as as has been present > 1 week with no improvement and ongoing s/s infectiousetiology 2. 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([facility]) POCT glycosylated hemoglobin (Hb A1C) docked device 3. Generalized anxiety disorder ([facility]) PARoxetine (Paxil) 40 MG tablet 4. Need for immunization against influenza Flu vaccine, trivalent, adjuvanted, preservative free 5. Acquired total absence of pancreas 6. Benign prostatic hyperplasia with urinary frequency 7. 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 ([facility]) 8. 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 H pylori ulcer see note to GI 10. 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 I recommended referral to specialty clinic for DM/pancreatectomy 11. Insulin pump in place 12. Pancreatic insufficiency ([facility]) 13. Duodenal ulcer see letter to GI cont PPI stop carafate - out of concern for binding meds 14. Medicare annual wellness visit, subsequent 15. ACP (advance care planning) 16. Bradycardia on low dose BB no changes for now 17. Orthostatic hypotension all BP meds stopped except for BB 18. Acute on chronic systolic congestive heart failure ([facility]) NYHA 3 Stgae D educated on importance of slow med additions/titrations and cocktail of meds beneficial for low EF CHF spoke with Dr Ramirez 1. Diabetes Mellitus. His A1c level is elevated at 9.8 percent, indicating uncontrolled blood sugar levels. He is experiencing frequent urination and dehydration due to high blood sugar levels. Jardiance will be discontinued. I discussed w/ Dr. Anat Ramirez (cardiology) my findings and plans with phi Regarding his diabetes management. He will be referred to [facility] with specialty interestin treatment DM from pancraetectomy 2. Peptic Ulcer Disease. He has a history of peptic ulcer disease with a recent EGD finding of an ulcer at the anastomosis from prior surgery. He is currently on Prilosec. Sucralfate (Carafate) will be discontinued due to its potential to bind other medications and make them ineffective. A repeat EGD will be scheduled to follow up on the ulcer and possibly perform a biopsy to confirm the resolution of H. pylori. A note will be sent to the structural rigger to discuss the possibility of using a stool study instead of abiopsy to avoid disturbing the scarred area. 3. Chronic Cough. He has a persistent cough with yellowish phlegm, which may indicate a minor infection. A chest x-ray will be performed today. An antibiotic, Augmentin, will be prescribed for 5 days. Zyrtec will be discontinued as it may contribute to his tiredness. 4. Lightheadedness and Dizziness. His weakness and dizziness are likely due to a combination of low blood pressure and dehydration from uncontrolled blood sugar levels. His blood pressure drops significantly upon standing, and his heart rate is low at 44 bpm. Aldactone and tamsulosin will be discontinued. If he experiences hesitancy with urination or dribbling, he may resume tamsulosin. A note will be sent to Dr. Coppola regarding his heart rate and blood pressure management. 5. Medication Management. He is currently taking multiple medications, including Tylenol, aspirin, Lipitor, vitamin D, Lantus, metoprolol, Paxil, and Creon. He will continue these medications as prescribed. 6. Health Maintenance. He received his flu shot today. He is advised to get the RSV and Covid vaccines as well. Follow-up Return next Wednesday for follow-up. 90+' documented in this encounterSoutheast Missouri Community Treatment [id number] Note Attestation signed by Patrick Beard MD at 04/14/2024 12:12 PM I saw and evaluated the patient. I reviewed the resident's/fellow's note and agree with the findings and plan documents in the resident's/fellow's note [facility] Gastroenterology New Patient Visit - History & Physical CHIEF COMPLAINT Chief Complaint Patient presents with gastrointestinal ulcer Pt says he's supposed to receive a procedure. 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 Patient was referred for the gastroenterology clinic to be established as a new patient regarding his history of peptic ulcer disease with a recent EGD finding in [facility] in February 04, 2024 after he was admitted there for an upper GI bleed. He has a history of duodenal anastomotic ulcer with endoclip placement after presenting with abdominal pain and was recently hospitalized in January 2024 for melena and acute blood loss anemia secondary to an anastomosis ulcer with a visible vessel, confirmed on EGD. He was discharged on pantoprazole 40 mg twice daily and sucralfate four times daily and has been taking Creon 24,000 units twice daily for pancreatic insufficiency without residual symptoms. His confirmed he completed a full course of treatment for H. pylori and has not been recently treated for a recurrence. We discussed the need for a repeat EGD to follow up on the anastomosis ulcer and potentially perform a biopsy to confirm the resolution of H. pylori, which the patient and his family agreed to. He will continue omeprazole 20 mg twice daily and sucralfate for now, with outpatient follow-up scheduled. PREVIOUS LABS/IMAGING/ENDOSCOPY: EGD 02/05/2024 in [facility]: Showing gastritis with anastomosis ulcer with visible blood vessel the duodenum. 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 ([facility]/HCC) Diabetes mellitus type II, non insulin dependent (CMS/HCC) Acquired total absence of pancreas Pancreatic insufficiency 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 ([facility]/HCC) Type 1 diabetes mellitus (CMS/HCC) Diabetes mellitus ([facility]/HCC) Acute GI bleeding Anemia of chronic disease Postoperative anemia Arthralgia of hip ASCVD (arteriosclerotic cardiovascular disease) Barretts esophagus Benign prostatic hyperplasia BMI 20.0-20.9, adult Closed intertrochanteric fracture of right hip (CMS/HCC) Closed nondisplaced fracture of fourth cervical vertebra with routine healing Fracture of C5 vertebra, closed (CMS/HCC) Current moderate episode of major 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 (CMS/HCC) Dyslipidemia E coli infection Elevated d-dimer Essential hypertension Fracture of cervical spinous process ([facility]/HCC) Fractured hip ([facility]) Hip fracture due to osteoporosis, sequela Anxiety and depression Generalized anxiety disorder Gram negative sepsis ([facility]/HCC) Duodenal ulcer H pylori ulcer Stomach ulcer H/O splenectomy Helicobacter pylori (H. 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) Hypomagnesemia Impaired mobility and activities of daily living Insulin pump in place IPMN (intraductal papillary mucinous neoplasm) Iron deficiency Ischemic myocardial dysfunction Left carpal tunnel syndrome Left radial fracture Leukemoid reaction Melena Mild left ventricular systolic dysfunction (LVSD) Mixed hyperlipidemia Need for immunization against influenza Non-ST elevation (NSTEMI) myocardial infarction ([facility]) Nonsustained monomorphic ventricular tachycardia ([facility]) Osteoporosis Perforated viscus Pneumonia of both lungs due to infectious organism Protein-calorie malnutrition, mild (CMS/HCC) Pyelonephritis Recent fracture of hip (CMS/HCC) Smoker Sepsis without acute organ dysfunction ([facility]/HCC) Sepsis due to Escherichia coli without acute organ dysfunction ([facility]/HCC) S/P PTCA (percutaneous transluminal coronary angioplasty) Sepsis due to urinary tract infection ([facility]/HCC) Traumatic rhabdomyolysis ([facility]/HCC) Two-vessel coronary artery disease Closed lumbar vertebral fracture ([facility]) Past Medical History: History reviewed. No pertinent past medical history. Past Surgical History: History reviewed. No p (more content not included)...[facility]09-04-2024 Anthony left a message last week for summer school coordinator Irish with [facility] regarding a referral from Dr. Wolff's office to get clarification on what needs done this patient. Spoke with Irish and patient needs to be seen in the office for a second opinion regarding a gastrojejunal ulcer. Did call and leave a message for Mr. Vickers to call and schedule an office appointment with Dr. Valerio Plummer and call back # of [phone]. [facility]07-29-2024 Progress note Author Anat Perez [facility] February 07, 2024 5:07pm Note Date/Time February 07, 2024 3:18 pm [facility] [address] [place] [address] Cardiology Progress Note Signed Patient: Manolo Vickers MR#: [id number] : 1935 Acct:[id number] Age/Sex: 88 / M Adm Date: 4 Loc: Room: [address] [place] [address] Type: ADM IN Attending Dr: Warren Gross DO Copies to: ~ Date of Service: 02/07/2024 Subjective Interval history: Mr. Vickers is a 88yo M with the H below who is admitted to [facility] on 02/06/24 for melanotic stool and a syncopal episode at home. He has been feeling weak and lightheaded x several days. He has a history of PUD and recent EGD on 09/01/23 found a 2 cm ulcer with a nonbleeding visible vessel at the bulb of the duodenum. It was injected with epinephrine and then treated with electrocoagulation. He has a known h/o CAD with PCI to LAD in Jul 2023 and knownCTO of mid LAD. Also has cardiomyopathy and was found to be wearing a LifeVest that apparently was ordered for him after recent hospital stay in [place]. On admission, stool occult blood was positive. Severe anemia of 7.7, with normal Plt of 277. Troponin was mildly elevated at 50--77--85. EKG shows sinus peace with anterolateral and inferior TWI. Interim evaluation 02/07/2024: Pt had EGD completed this am that showed an anastomotic ulcer with an exposed bleeding vessel and he remains at high risk of rebleeding. Denies chest pain, dyspnea, BLE edema, orthopnea or PND. Hemodynamically stable. Exam Physical Exam Vital Signs: Temp Pulse Resp BP Pulse Ox O2 Del Method 98 F 51 L 14 168/86 H 99 Room Air 02/07/24 10:57 02/07/24 10:57 02/07/24 10:57 02/07/24 10:57 02/07/24 10:57 02/07/24 12:48 Narrative: GEN: AAOx3. No acute distress. Neck: No JVD. Lungs: Clear to auscultation bilaterally Heart: Regular rate and rhythm. Normal S1 and S2. No murmurs or rubs appreciated. Abdomen: Soft, nontender, nondistended, bowel sounds present. Extremities: No BLE edema. Neuro: AAOx3. No focal deficits. Objective Labs 02/07/24 06:21 02/07/24 06:21 Labs: Laboratory Results - last 24 hr 02/05/24 02/06/24 02/06/24 19:34 08:20 16:33 Corrected WBC Uncorrected WBC Count RBC Hgb Hct MCV MCH MCHC RDW Plt Count MPV Neut % (Auto) Lymph % (Auto) [place] % (Auto) Eos % (Auto) Baso % (Auto) Nucleat RBC Rel Count Neut # (Auto) Lymph # (Auto) [place] # (Auto) Eos # (Auto) Baso # (Auto) PHA Creatinine Clear Sodium Potassium Chloride Carbon Dioxide Anion Gap BUN Creatinine Est GFR (CKD-EPI) Glucose POC Glucose 377 POC Glucose Comment Glu2: cleaned meter Estimat Average Glucose 194 Hemoglobin A1c 8.4 H Calcium Magnesium Blood Type A Positive Antibody Screen Negative Crossmatch ([facility]) See Detail 02/06/24 02/06/24 02/06/24 20:51 20:51 20:53 Corrected WBC Uncorrected WBC Count RBC Hgb Hct MCV MCH MCHC RDW Plt Count MPV Neut % (Auto) Lymph % (Auto) [place] % (Auto) Eos % (Auto) Baso % (Auto) Nucleat RBC Rel Count Neut # (Auto) Lymph # (Auto) [place] # (Auto) Eos # (Auto) Baso # (Auto) PHA Creatinine Clear Sodium Potassium Chloride Carbon Dioxide Anion Gap BUN Creatinine Est GFR (CKD-EPI) Glucose POC Glucose 547 H* 523 H* POC Glucose Comment Will notify dr/rn Glu2: cleaned meter Estimat Average Glucose Hemoglobin A1c Calcium Magnesium Blood Type Antibody Screen Crossmatch ([facility]) 02/06/24 02/06/24 02/06/24 20:53 20:53 22:12 Corrected WBC Uncorrected WBC Count RBC Hgb 9.0 L Hct 26.4 L MCV MCH MCHC RDW Plt Count MPV Neut % (Auto) Lymph % (Auto) [place] % (Auto) Eos % (Auto) Baso % (Auto) Nucleat RBC Rel Count Neut # (Auto) Lymph # (Auto) [place] # (Auto) Eos # (Auto) Baso # (Auto) PHA Creatinine Clear Sodium Potassium Chloride Carbon Dioxide Anion Gap BUN Creatinine Est GFR (CKD-EPI) Glucose POC Glucose POC Glucose Comment Will notify dr/rn Follow hypoglycemic Estimat Average Glucose Hemoglobin A1c Calcium Magnesium Blood Type Antibody Screen Crossmatch ([facility]) 02/07/24 02/07/24 02/07/24 06:21 06:35 11:12 Corrected WBC 7.2 Uncorrected WBC Count 7.2 RBC 3.24 L Hgb 8.7 L Hct 25.3 L MCV 78.1 L MCH 26.7 L MCHC 34.2 RDW 19.3 H Plt Count 184 MPV 10.8 H Neut % (Auto) 47.8 Lymph % (Auto) 28.8 [place] % (Auto) 16.7 Eos % (Auto) 5.5 Baso % (Auto) 1.2 Nucleat RBC Rel Count 0.2 Neut # (Auto) 3.4 Lymph # (Auto) 2.1 [place] # (Auto) 1.2 H Eos # (Auto) 0.4 Baso # (Auto) 0.1 PHA Creatinine Clear 56.91 Sodium 137 Potassium 4.1 Chloride 106 Carbon Dioxide 27.7 Anion Gap 7.4 BUN 37 H Creatinine 0.85 Est GFR (CKD-EPI) > 60.0 Glucose 171 H POC Glucose 200 177 POC Glucose Comment Estimat Average Glucose Hemoglobin A1c Calcium 8.0 L Magnesium 1.6 L Blood Type Antibody Screen Crossmatch ([facility]) A&P - Cardiology (1) Acute GI bleeding: Code(s): K92.2 - Gastrointestinal hemorrhage, unspecified (2) Elevated troponin: Code(s): R79.89 - Other specified abnormal findings of blood chemistry (3) Coronary artery disease involving [place] coronary artery of [place] heart without angina pectoris: Code(s): I25.10 - Atherosclerotic heart disease of [place] coronary artery without angina pectoris (4) S/P PTCA (percutaneous transluminal coronary angioplasty): Code(s): Z98.61 - Coronary angioplasty status Plan # Acute recurrent GI Bleed in setting of known PUD (recent EGD on 09/01/23 found a 2 cm ulcer with a nonbleeding visible vessel at the bulb of the duodenum). # CAD s/p PCI in Jul 2023. # Ischemic Cardiomyopathy s/p LifeVest ordered in [place] - Well compensated. # Non-ACS myocardial injury - Is due to demand-supply mismatch 2/2 acute anemia. 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 Current smoker. [facility] 04/30/23 - Two-vessel coronary artery disease- 100% prox LAD occlusion; 80% D1; LCx has 50% prox stenosis with 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 Echo 04/28/24 - EF 40-45%, mild LVH, trace MR and TR. [facility] 07/16/22 - Successful PCI ostial/proximal LAD-diagonal branch; true CHIEF PHYSICAL THERAPIST proximal/mid LAD (attempted wiring with balloon). EKG 09/07/23 - sinus peace 56 bpm, anterolateral TWI. EKG 09/08/23 - sinus peace 58 bpm, anterolateral and inferior TWI. - Pt is currently 6 months out from PCI. Will stop Plavix and if Hb remains stable, continue ASA 81mg daily. - Reviewed records from hospitalization at [facility] in [place]. He was hospitalized for NSTEMI and PNA. Elevated troponin was deemed to be due to rhabdomyolysis. ECHO at the time showed LVEF of 30-35% and Life Vest was placed. - Personally reviewed ECHO images from today. EF is ~30%. Continue LifeVest. - GI bleed management per GI. Keep Hgb > 8. - GDMT: Resume home Toprol, Valsartan and Aldactone. - Will plan on repeat ECHO 3 months after being on maximally tolerated GDMT to determine need for ICD. - Will follow Documented By: Anat Perez MD 02/07/24 3746 Signed By: <Electronically signed by Anat Perez MD> 02/07/24 [address] [facility] Work Phone: 1(368) 439-167007-29-2024 Progress note Author Warren Gross [facility] February 07, 2024 12:28pm Note Date/Time February 07, 2024 12:2 9pm [facility] [address] [place] [address] Hospitalist Progress Note Signed Patient: Manolo Vickers MR#: [id number] : 1935 Acct:[id number] Age/Sex: 88 / M Adm Date: 4 Loc: Room: [address] [place] [address] Type: ADM IN Attending Dr: Warren Gross DO Copies to: ~ Date of Service: 02/07/2024 Subjective Subjective Narrative: Seen and evaluated, patient had had his EGD this morning and the results reviewed with him. He had explained to him that he will be on a liquid diet today, plan to resume his antiplatelet therapy patient is currently remains at ahigh risk of further bleeding and if he does not have a rebleed he will need to be transferred to tertiary care center for either IR or open surgery. Patient is agreeable and understands this. Denies any complaints this point in time andis overall quite satisfied with his treatment here. Exam Physical Exam Vital Signs: Temp Pulse Resp BP Pulse Ox O2 Del Method 98 F 51 L 14 168/86 H 99 Room Air 02/07/24 10:57 02/07/24 10:57 02/07/24 10:57 02/07/24 10:57 02/07/24 10:57 02/07/24 10:57 Narrative: General: Awake alert, no acute distress, resting bed comfortably HEENT: head atraumatic, normocephalic, moist mucous membranes Neck: supple no masses, no lymphadenopathy CVS: regular rate and rhythm, no murmurs or gallops Respiratory: clear to auscultation bilaterally, no wheezing or crackles, symmetric expansion GI: soft, nondistended, nontender, positive bowel sounds with no organomegaly Extremity: moves all extremities, no restrictions of movements, no calf tenderness, no edema Neuro: AOx3, CN II-VII intact. Moves all extremities in all planes of motion. Skin: dry, intact no rashes or lesions Objective Lab Results 02/07/24 06:21 02/07/24 06:21 Meds Allergies and Active Meds Allergies No Known Allergies Allergy (Verified 02/05/24 19:08) Active Meds: Active Medications Generic Name Dose Route Start Last Admin Trade Name Che PRN Reason Stop Dose Admin Acetaminophen 650 mg 02/06/24 02:14 Acetaminophen 325 Mg Tablet PO 02/05/25 02:13 Q6HR PRN Pain Scale 1 - 3 or fever Lipase/Protease/Amylase 2 cap 02/06/24 08:00 02/07/24 10:59 Lipa/Prot/Amyla 24-76-120k [address] SUNSHINE 02/05/25 07:59 Not Given TID.WITH.MEALS TAVIA Aspirin 81 mg 02/08/24 09:00 Aspirin 81 Mg Tablet. PO 02/07/25 08:59 DAILY TAVIA Atorvastatin Calcium 80 mg 02/06/24 22:00 02/06/24 21:23 Atorvastatin 80 Mg Tablet PO 02/05/25 21:59 80 mg QHS TAVIA Administration Clopidogrel Bisulfate 75 mg 02/08/24 09:00 Clopidogrel Bisulfate 75 Mg Tablet PO 02/07/25 08:59 DAILY TAVIA Dextrose 0 gm 02/06/24 02:48 Dextrose 50% In Water 25 Gm/50 Ml Syringe IV-PUSH 02/05/25 02:47 PRN PRN Hypoglycemia Furosemide 20 mg 02/07/24 08:00 02/07/24 10:58 Furosemide 20 Mg/2 Ml Vial IV-PUSH 02/06/25 07:59 20 mg DAILY.8A TAVIA Administration Glucose 0 gm 02/06/24 02:48 Dextrose 40% Gel 15 Gm Tube PO 02/05/25 02:47 PRN PRN Hypoglycemia Pantoprazole Sodium 80 mg/ 100 mls @ 10 mls/hr 02/05/24 23:15 02/07/24 05:28 Sodium Chloride IV 02/04/25 23:14 8 mg/hr .Q10H TAVIA 10 mls/hr Administration 8 MG/HR Sodium Chloride 500 mls @ 20 mls/hr 02/06/24 14:21 0.9 % Sodium Chloride IV 02/07/24 14:20 PROTOCOL PRN BLOOD TRANSFUSION Sodium Chloride 1,000 mls @ 30 mls/hr 02/07/24 08:30 02/07/24 08:20 0.9% Sodium Chloride 1,000 Ml IV 02/06/25 08:29 30 mls/hr .Q24H TAVIA Administration Insulin Aspart 0 units 02/06/24 22:00 02/07/24 10:58 Insulin Aspart 300 Units/3 Ml Insuln.Pen SUBCUT 02/05/25 21:59 Not Given TID.WM.HS TAVIA Protocol Insulin Aspart 0 units 02/07/24 08:00 02/07/24 10:58 Insulin Aspart 300 Units/3 Ml Insuln.Pen SUBCUT 02/06/25 07:59 Not Given TID.WITH.MEALS [facility] Protocol Insulin Glargine 6 units 02/07/24 09:00 Insulin Glargine 300 Units/3 Ml Insuln.Pen SUBCUT 02/06/25 08:59 BID TAVIA Metoprolol Succinate 12.5 mg 02/06/24 09:00 02/06/24 20:17 Metoprolol Succinate 25 Mg Tab.Er.24h PO 02/05/25 08:59 12.5 mg BID TAVIA Administration Paroxetine HCl 30 mg 02/06/24 09:00 02/06/24 09:23 Paroxetine 30 Mg Tablet PO 02/05/25 08:59 30 mg DAILY TAVIA Administration Sodium Chloride 0 ml 02/05/24 19:07 Sodium Chloride 0.9 % 10 Ml Syringe IV-PUSH 02/04/25 19:06 PRN PRN Flush Sodium Chloride 0 ml 02/06/24 06:00 02/07/24 05:28 Sodium Chloride 0.9 % 10 Ml Syringe IV-PUSH 02/05/25 05:59 10 ml QSHIFT TAVIA Administration Sucralfate 1 gm 02/06/24 12:00 02/07/24 05:26 Sucralfate 1 Gm Tablet PO 02/05/25 11:59 1 gm Q6HR TAVIA Administration Tamsulosin HCl 0.4 mg 02/06/24 09:00 02/06/24 09:23 Tamsulosin 0.4 Mg Cap.Er.24h PO 02/05/25 08:59 0.4 mg DAILY TAVIA Administration Valsartan 80 mg 02/06/24 21:25 02/06/24 22:01 Valsartan 80 Mg Tablet PO 02/05/25 21:24 80 mg DAILY TAVIA Administration Vitamin D 50 mcg 02/07/24 09:00 Cholecalciferol 25 Mcg (1,000 Units) Tablet PO 02/06/25 08:59 DAILY [facility] A&P - Hospitalist Assessment/Plan (1) Acute GI bleeding: (2) Elevated troponin: (3) CAD (coronary artery disease): (4) Hypertension: (5) History of pancreatectomy: (6) Type 1 diabetes mellitus: Plan Assessment: Acute symptomatic anemia with lightheadedness and syncope and collapse. Acute, recurrent, upper GI bleeding. Coronary artery disease with drug-eluting stents placed in July 2023. 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 Resulting type 1 diabetes, managed with continuous insulin pump and jean paul continuous glucose monitor. 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 Right now his congestive heart failure is extremely well compensated with no legedema and entirely clear lungs to auscultation. Plan: Status post EGD this morning, findings show an ulcer at the anastomosis and because of the scar tissue from prior surgery with exposed vessel. A clip was placed however he remains at high risk for further rebleeding requiring IR intervention or surgical closure. Continue Protonix IV 40 mg twice daily Continue sucralfate 4 times daily Continue home aspirin 81 mg daily and hold home Plavix 81 mg daily with caution Sleeve compression devices only for DVT prophylaxis. Cardiology and GI on consult ? Morning CBC to assess for any further bleeding Discussed with patient at bedside, all question answered, patient is in agreement with above plan Documented By: Warren Gross DO 02/07/241223 Signed By: <Electronically signed by Warren Gross DO> 02/07/248 [facility] Work Phone: 1(646) 411-554407-29-2024 [facility] Progress note Author Sushant Cordon [facility] February 06, 2024 9:45pm Note Date/Time February 06, 2024 9:45 pm [facility] [address] [place] [address] Progress Note Signed Patient: Manolo Vickers MR#: [id number] : 1935 Acct:[id number] Age/Sex: 88 / M Adm Date: 4 Loc: Room: [address] [place] [address] Type: ADM IN Attending Dr: Nayeli Jimenez MD Copies to: ~ Date of Service: 02/06/2024 Progress Narrative Note PROGRESS NOTE Progress Note: Today the patient has developed progressively worsening hyperglycemia. The patient has history of total pancreatectomy a few years ago when he lived [facility]. He uses a G7 continuous glucose monitoring device and an Omnipod continuous insulin system. Nursing staff talk to the patient tonight and found out that the OmniPod ran outof insulin. I went to go see the patient. It is unclear when the OmniPod ran out of insulin. This may have happened during the daytime on Wednesday when the patientwas feeling really bad at home. Using his device with his permission what I can tell from the Omnipod is that itgives him 0.5 units of insulin per hour, for a total of 12 units every 24 hours. The patient does not know what his carbohydrate counting ratio is and I suspect that he actually does not use carbohydrate counting and he does not know what his sliding scale corrective factor is. I encouraged the patient to have his bring in an OmniPod and make sure thatthe G7 is up-to-date as well. Hopefully this can happen during the daytime tomorrow on Wednesday. For now I will start Lantus insulin at 10 units divided twice a day, first dose now, and sliding scale insulin level 1. Nursing staff will check in between 2:00 and 3:00 in the morning to see if he is coming down and not developing acute hypoglycemia. I also put in a 1 unit for every 20 g of carbohydrates sliding scale especially to be used once his diet is able to be advanced. I placed an order for him to be n.p.o. after midnight in anticipation that he can get the endoscopy procedure tomorrow on Wednesday. Documented By: Sushant Cordon DO [id number] Signed By: <Electronically signed by Sushant Cordon, > 02/06/242144 [facility] Work Phone: 1(334) 629-956807-28-2024 Consult note Author Chuck Velasco [facility] February 06, 2024 2:44pm Note Date/Time February 06, 2024 2:36 pm [facility] [address] [place] [address] Cardiology Consult Note Signed Patient: Manolo Vickers MR#: [id number] : 1935 Acct:[id number] Age/Sex: 88 / M Adm Date: 4 Loc: Room: [address] [place] [address] Type: ADM IN Attending Dr: Nayeli Jimenez MD Copies to: MD Nayeli Varner MD Robert J Vaschak,DO~ Cardiology HPI History of Present Illness Consult Date: 02/06/24 Reason for Consult: GI Bleeding HPI: Mr. Vickers is a 88yo M with the PMH below who is admitted to [facility] on 02/06/24 for melanotic stool and a syncopal episode at home. He has been feeling weak and lightheaded x several days. He has a history of PUD and recent EGD on 09/01/23 found a 2 cm ulcer with a nonbleeding visible vessel at the bulb of the duodenum. It was injected with epinephrine and then treated with electrocoagulation. He has a known h/o CAD with PCI to LAD in Jul 2023 and knownCTO of mid LAD. Also has cardiomyopathy and was found to be wearing a LifeVest that apparently was ordered for him after recent hospital stay in [place]. On admission, stool occult blood was positive. Severe anemia of 7.7, with normal Plt of 277. Troponin was mildly elevated at 50--77--85. EKG shows sinus peace with anterolateral and inferior TWI. Review of Systems Review of Systems All other systems reviewed & are negative unless noted below or in HPI [facility] Medical History Hypertension CAD (coronary artery disease) Type 1 diabetes mellitus Dupuytren's contracture of right hand Carpal tunnel syndrome of left wrist Cervical spine fracture Fracture of cervical spinous process Stomach ulcer previous rupture with repair. Melena Anxiety and depression Protein-calorie malnutrition, mild BPH (benign prostatic hyperplasia) Diabetes type 1- insulin pump in place. Surgical History History of tonsillectomy History of resection of pancreas History of back surgery H/O heart artery stent History of repair of hip fracture R side with 3 nails in. H/O splenectomy History of pancreatectomy Family History Brother Cancer Son Sarcoma Mother No problems noted. Father No problems noted. Sister Leukemia Social History Smoking Status: Current some day smoker Tobacco Type: cigarettes Substance Use Type: None Meds Medications and Allergies Allergies No Known Allergies Allergy (Verified 02/05/24 19:08) Home Medications aspirin 81 mg tablet,delayed release 81 mg PO DAILY 30 days #30 tabs 05/07/23 [Rx Confirmed 02/05/24] rbhikh-wnyisscd-dueghgz 24,000-76,000-120,000 unit capsule,delayed rel (Creon) 2cap PO TID.WITH.MEALS 30 days #120 caps 05/07/23 [Rx Confirmed 02/06/24] nitroglycerin 0.4 mg sublingual tablet 0.4 mg sublingual Q5M PRN Chest Pain 30 days #30 tabs 05/07/23 [Rx Confirmed 02/05/24] paroxetine HCl 30 mg tablet 30 mg PO DAILY 30 days #30 tabs 05/07/23 [Rx Confirmed 02/05/24] tamsulosin 0.4 mg capsule 0.4 mg PO DAILY 30 days #30 caps 05/07/23 [Rx Confirmed 02/05/24] acetaminophen 500 mg tablet 500 mg PO Q6HR PRN pain 08/31/23 [History Confirmed 10/28/23] clopidogrel 75 mg tablet 75 mg PO DAILY 08/31/23 [History Confirmed 02/05/24] insulin glargine 100 unit/mL (3 mL) subcutaneous pen (Lantus Solostar U-100 Insulin) 8 unit subcut HS 08/31/23 [History Confirmed 10/28/23] zonutgvdcdux-ujyqqptr-qhriad tablet (Multivitamin 50 Plus tablet) 1 tab PO DAILY08/31/23 [History Confirmed 10/28/23] insulin aspart U-100 100 unit/mL (3 mL) subcutaneous pen (Novolog FlexPen U-100 Insulin aspart) See Protocol subcut TID.WM.HS #0 mL 09/03/23 [Rx Confirmed 10/28/23] blood sugar diagnostic #120 ea 09/05/23 [Rx Confirmed 09/28/23] lancets #120 ea 09/05/23 [Rx Confirmed 09/28/23] pen needle, diabetic 32 gauge x 5/32 (BD Ultra-Fine Marichuy Pen Needle) #100 ea 09/05/23 [Rx Confirmed 09/28/23] cholecalciferol (vitamin D3) 100 mcg PO DAILY 10/26/23 [History Confirmed 10/28/23] loratadine 10 mg tablet (Claritin) 1 tab PO DAILY 10/26/23 [History Confirmed 10/28/23] lutein 6 mg capsule 6 mg PO DAILY 10/26/23 [History Confirmed 10/28/23] multivitamin with minerals-folic acid 12 mcg chewable tablet (Centrum Adults) 1 tab PO DAILY 10/26/23 [History Confirmed 10/28/23] atorvastatin 80 mg tablet 80 mg PO QHS 90 days #90 tabs 10/28/23 [Rx Confirmed 02/05/24] valsartan 80 mg tablet 80 mg PO DAILY 90 days #90 tabs 10/28/23 [Rx Confirmed 02/05/24] pantoprazole 40 mg tablet,delayed release (Protonix) 40 mg PO DAILY 90 days #180tabs 11/11/23 [Rx Confirmed 10/28/23] stvecl-kvopjzig-xsyslpg 24,000-76,000-120,000 unit capsule,delayed rel (Creon) 1cap PO TID PRN gastrointestinal spasms or cramping 02/05/24 [History Confirmed 02/06/24] metoprolol succinate 25 mg tablet,extended release 24 hr (Toprol XL) 12.5 mg PO BID 02/05/24 [History Confirmed 02/05/24] spironolactone 25 mg tablet (Aldactone) 25 mg PO QAM 02/05/24 [History Confirmed 02/05/24] Exam Physical Exam Vital Signs: Temp Pulse Resp BP Pulse Ox O2 Del Method 98 F 54 L 18 140/70 99 Room Air 02/06/24 13:15 02/06/24 13:15 02/06/24 13:15 02/06/24 13:15 02/06/24 13:15 02/06/24 07:56 Narrative: Physical Exam: General: NAD, A&Ox3, Cooperative Head, Eyes: NC/AT, EOMI Lungs: Good air entry; No crackles/rhonchi/wheezes Heart: S1S2 normal, Regular rhythm, No murmurs/rubs/gallop, No JVD Extremities: No edema. Abdomen: Soft, non-tender, non-distended. Neuro: CN grossly intact, No focal deficits. Psych: Normal mood & affect. Results - Cardiology Labs 02/06/24 12:59 02/06/24 08:20 Lab results: Cardiac Enzymes 02/05/24 02/06/24 Range/Units 19:34 08:20 AST 15 15 (13-39) U/L Total Creatine Kinase 114 (30-223) U/L B-Natriuretic Peptide 399.0 H (5-100) pg/mL CBC 02/05/24 02/06/24 02/06/24 Range/Units 19:34 08:20 12:59 RBC 3.11 L 2.99 L (3.90-5.60) X10E6/uL Hgb 7.7 L 7.7 L 8.4 L (13.0-17.0) g/dL Hct 23.7 L 22.9 L 25.2 L (38.8-50.0) % Plt Count 277 230 (150-450) x10E3/uL Neut # (Auto) 7.0 6.9 (1.8-7.7) x10E3/uL Lymph # (Auto) 1.5 1.8 (1.00-4.8) x10E3/uL [place] # (Auto) 0.4 0.7 (0.0-0.8) x10E3/uL Eos # (Auto) 0.0 0.1 (0.0-0.45) x10E3/uL Baso # (Auto) 0.0 0.1 (0.0-0.2) x10E3/uL Comprehensive Metabolic Panel 02/05/24 02/06/24 Range/Units 19:34 08:20 Sodium 133 L 138 (136-145) mmol/L Potassium 5.1 4.8 (3.5-5.1) mmol/L Chloride 103 107 (98-107) mmol/L Carbon Dioxide 23.1 25.7 (21.0-31.0) mmol/L BUN 58 H 57 H (7-25) mg/dL Creatinine 1.09 1.00 (0.70-1.30) mg/dL Glucose 158 H 129 H (70-100) mg/dL Calcium 8.6 8.4 L (8.6-10.3) mg/dL Direct Bilirubin 0.10 0.20 H (0.03-0.18) mg/dL Indirect Bilirubin 0.4 1.0 mg/dL AST 15 15 (13-39) U/L ALT 15 12 (7-52) U/L Alkaline Phosphatase 104 94 (34-104) U/L Total Protein 5.7 L 5.2 L (6.4-8.9) gm/dL Albumin 3.3 L 3.2 L (3.5-5.7) gm/dL Intake and Output 02/05/24 02/06/24 02/06/24 22:59 06:59 14:59 Intake Total 1100 / 1100 100 / 100 Output Total 350 / 350 Balance 750 / 750 100 / 100 Intake: IV 1100 / 1100 100 / 100 Pantoprazole 80 mg In Sodium 100 / 100 100 / 100 Chloride 0.9% 100 ml 100 ml @ 8 MG/HR 10 mls/hr IV .Q10H TAVIA Rx#:[id number] Sodium Chloride 0.9% 1,000 ml 1 1000 / 1000 ,000 ml @ 999 mls/hr IV .Q1H1M ONE Rx#:[id number] Oral 0 / 0 Output: Urine 350 / 350 Other: Total Intake (Blood Product) Cumulative Amt Leukocyte Reduced Rbc Unit 325 [id number] Leukocyte Reduced Rbc Unit 325 [id number] Weight 65.5 kg 65.5 kg Date of Last Bowel Movement 02/06/24 02/06/24 Lab 02/05/24 19:34 PT 15.5 H INR 1.3 APTT 23.6 L A&P - Cardiology (1) Acute GI bleeding: Code(s): K92.2 - Gastrointestinal hemorrhage, unspecified (2) Elevated troponin: Code(s): R79.89 - Other specified abnormal findings of blood chemistry (3) Coronary artery disease involving [place] coronary artery of [place] heart without angina pectoris: Code(s): I25.10 - Atherosclerotic heart disease of [place] coronary artery without angina pectoris (4) S/P PTCA (percutaneous transluminal coronary angioplasty): Code(s): Z98.61 - Coronary angioplasty status Plan # Acute recurrent GI Bleed in setting of known PUD (recent EGD on 09/01/23 found a 2 cm ulcer with a nonbleeding visible vessel at the bulb of the duodenum). # CAD s/p PCI in Jul 2023. # Cardiomyopathy s/p LifeVest ordered in [place] - Well compensated. # Non-ACS myocardial injury - Is due to demand-supply mismatch 2/2 acute anemia. 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 Current smoker. [facility] 04/30/23 - Two-vessel coronary artery disease- 100% prox LAD occlusion; 80% D1; LCx has 50% prox stenosis with 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 Echo 04/28/24 - EF 40-45%, mild LVH, trace MR and TR. [facility] 07/16/22 - Successful PCI ostial/proximal LAD-diagonal branch; true [employer]IE[employer] PHYSICAL THERAPIST proximal/mid LAD (attempted wiring with balloon). EKG 09/07/23 - sinus peace 56 bpm, anterolateral TWI. EKG 09/08/23 - sinus peace 58 bpm, anterolateral and inferior TWI. - Get records from [place] on recent hospitalization and LifeVest. - GI management of bleed. Keep Hgb > 8. - Given acute bleed, need to hold ASA and Plavix until GI workup then resume. - Currently holding home Lipitor, valsartan, metoprolol and Aldactone as pt is NPO. - No active ACS and workup of GI bleed is urgent (DAPT is on hold until this is done). No additional cardiac testing is indicated prior to EGD. Documented By: Chuck Velasco MD 01/10 03/04 [id number] Signed By: <Electronically signed by Chuck Velasco MD> 02/06/24 [id number] [facility] Work Phone: 1(953) 661-959007-28-2024 Progress note Author Nayeli Jimenez [facility] February 06, 2024 12:35pm Note Date/Time February 06, 2024 12:3 5pm [facility] [address] [place] [address] Hospitalist Progress Note Signed Patient: Manolo Vickers MR#: [id number] : 1935 Acct:[id number] Age/Sex: 88 / M Adm Date: 4 Loc: 3T Room: [address] [place] [address] Type: ADM IN Attending Dr: Nayeli Jimenez MD Copies to: ~ Date of Service: 02/06/2024 Subjective Subjective Narrative: Patient was seen evaluated at bedside, remained afebrile, hemodynamically appears stable, patient denies any BMs while here. Seen by GI team recommended cardiac clearance given his cardiac hx. Will obtain records from [place] as pt recently been there for concerns for NSTEMI with decision for outpatient cath, pt states he did have cath few month ago and followed with Dr. Coppola however he is uncertain. Cardiology been consulted. Pt wearing life Vest. Exam Physical Exam Vital Signs: Temp Pulse Resp BP Pulse Ox O2 Del Method 98.5 F 55 L 16 147/75 H 100 Room Air 02/06/24 12:18 02/06/24 12:18 02/06/24 12:18 02/06/24 12:18 02/06/24 12:18 02/06/24 07:56 Narrative: Const General: cooperative HEENT Normal oropharyngeal mucosa without any ulcers or exudates Eyes: Conjunctiva normal Pulmonary Auscultation: clear to auscultation , no crackles, no wheezes Cardiovascular Rate: Slightly bradycardic Rhythm: regular rhythm Heart Sounds: S1 normal, S2 normal and no murmurs GI Inspection: non-distended Palpation: soft, not firm and nontender. No rigidity or rebound. Deferred Neuro General: alert, awake and oriented x3. No obvious new focal deficit Musculoskeletal: normal range of motion Extrem General: no cyanosis, no pedal edema Psych Appearance: appropriate affect. Grossly normal Objective Lab Results 02/06/24 08:20 02/06/24 08:20 Microbiology Results Microbiology 02/05/24 19:30 Stool Stool Occult Blood (DORON) - Final Meds Allergies and Active Meds Allergies No Known Allergies Allergy (Verified 02/05/24 19:08) Active Meds: Active Medications Generic Name Dose Route Start Last Admin Trade Name Freq PRN Reason Stop Dose Admin Acetaminophen 650 mg 02/06/24 02:14 Acetaminophen 325 Mg Tablet PO 02/05/25 02:13 Q6HR PRN Pain Scale 1 - 3 or fever Lipase/Protease/Amylase 1 cap 02/06/24 09:00 Lipa/Prot/Amyla 24-76-120k [address] SUNSHINE 02/05/25 08:59 TID TAVIA Lipase/Protease/Amylase 2 cap 02/06/24 08:00 Lipa/Prot/Amyla 24-76-120k [address] SUNSHINE 02/05/25 07:59 TID.WITH.MEALS TAVIA Atorvastatin Calcium 80 mg 02/06/24 22:00 Atorvastatin 80 Mg Tablet PO 02/05/25 21:59 QHS TAVIA Dextrose 0 gm 02/06/24 02:48 Dextrose 50% In Water 25 Gm/50 Ml Syringe IV-PUSH 02/05/25 02:47 PRN PRN Hypoglycemia Glucose 0 gm 02/06/24 02:48 Dextrose 40% Gel 15 Gm Tube PO 02/05/25 02:47 PRN PRN Hypoglycemia Pantoprazole Sodium 80 mg/ 100 mls @ 10 mls/hr 02/05/24 23:15 02/06/24 09:23 Sodium Chloride IV 02/04/25 23:14 8 mg/hr .Q10H TAVIA 10 mls/hr Administration 8 MG/HR Sodium Chloride 500 mls @ 20 mls/hr 02/06/24 02:14 0.9 % Sodium Chloride IV 02/07/24 02:13 PROTOCOL PRN BLOOD TRANSFUSION Magnesium Sulfate 2 gm in 50 mls @ 25 mls/hr 02/06/24 02:17 Magnesium Sulf 2gm-*Swfi* IV 02/05/25 02:16 DAILY PRN Hypomagnesemia Magnesium Oxide 400 mg 02/06/24 12:29 Magnesium Oxide 400 Mg Tablet PO 02/06/24 12:30 ONCE ONE Metoprolol Succinate 12.5 mg 02/06/24 09:00 02/06/24 09:23 Metoprolol Succinate 25 Mg Tab.Er.24h PO 02/05/25 08:59 12.5 mg BID TAVIA Administration Paroxetine HCl 30 mg 02/06/24 09:00 02/06/24 09:23 Paroxetine 30 Mg Tablet PO 02/05/25 08:59 30 mg DAILY TAVIA Administration Sodium Chloride 0 ml 02/05/24 19:07 Sodium Chloride 0.9 % 10 Ml Syringe IV-PUSH 02/04/25 19:06 PRN PRN Flush Sodium Chloride 0 ml 02/06/24 06:00 02/06/24 05:15 Sodium Chloride 0.9 % 10 Ml Syringe IV-PUSH 02/05/25 05:59 Not Given QSHIFT TAVIA Sucralfate 1 gm 02/06/24 12:00 Sucralfate 1 Gm Tablet PO 02/05/25 11:59 Q6HR TAVIA Tamsulosin HCl 0.4 mg 02/06/24 09:00 02/06/24 09:23 Tamsulosin 0.4 Mg Cap.Er.24h PO 02/05/25 08:59 0.4 mg DAILY TAVIA Administration Vitamin D 50 mcg 02/07/24 09:00 Cholecalciferol 25 Mcg (1,000 Units) Tablet PO 02/06/25 08:59 DAILY TAVIA A&P - Hospitalist Assessment/Plan (1) Acute GI bleeding: (2) Elevated troponin: (3) CAD (coronary artery disease): (4) Hypertension: (5) History of pancreatectomy: (6) Type 1 diabetes mellitus: Plan Assessment: Acute symptomatic anemia with lightheadedness and syncope and collapse. Acute, recurrent, upper GI bleeding. Coronary artery disease with drug-eluting stents placed in July 2023. 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 Resulting type 1 diabetes, managed with continuous insulin pump and jean paul continuous glucose monitor. 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 Right now his congestive heart failure is extremely well compensated with no legedema and entirely clear lungs to auscultation. Plan: Continue blood transfuse 1 unit of packed red blood cells this morning and then get a.m. labs Continue Protonix IV Hold home aspirin 81 mg daily and hold home Plavix 81 mg daily. Sleeve compression devices only for DVT prophylaxis. GI consulted. plan for EGD once cleared by cardiology. Input appreciated. Cardiology consulted for perioperative cardiac evaluation Discussed with patient at bedside, all question answered, patient is in agreement with above plan Documented By: Nayeli Jimenez MD 02/06/24 12 30 Signed By: <Electronically signed by Nayeli Jimenez MD> 02/06/24 [address] [facility] Work Phone: [phone]) 586-270907-28-2024 Consult note Author Manuel Wolff [facility] February 06, 2024 9:36am Note Date/Time February 06, 2024 9:00 am [facility] [address] [place] [address] Gastroenterology Consult Note Signed Patient: Manolo Vickers MR#: [id number] : 1935 Acct:[id number] Age/Sex: 88 / M Adm Date: 4 Loc: Room: [address] [place] [address] Type: ADM IN Attending Dr: Nayeli Jimenez MD Copies to: MD Nayeli Rendon MD Robert J Vaschak,DO~ HPI Data of Consult Date of Consultation: 02/06/24 Requesting Physician: Nayeli Jimenez MD Consult Narrative History of present illness: Mr. Vickers is a 88 year old male admitted with syncopal episode. Briefly, the patient presented earlier this month to the [facility] after being found down, unresponsive noted low blood sugars. He was ultimately transferred to [facility] in [place]. Noted a nondisplaced ulnar fracture, atypical PNA, having an NSTEMI at the time saw cardiology there. Per the patients she states theheart doctors there told them his heart was extremely weak and not pumping well . Full records are not available but he was discharged with a LifeVest. Regarding his GI history he has a history of PUD secondary to H. pylori and NSAID use. Status post H. pylori eradication on quad therapy. Negative endoscopy in 11/2023. The patients states that he does not use NSAIDs besides 81 mg asa, only Tylenol for back pain since his history of ulcers and admission. Patient thinks he may have had a single Aleve about 4 weeks ago, prior to his admission in [place]. She does not think he is on his PPI any longer, she believes he completed treatment with that. Remote colonoscopy she reports as normal. On admission BPs initially soft, but fluid responsive. Hgb down ~2 gram from discharge from [place] 2 weeks ago. Uptrending troponin. [place] dynamic ST changes on EKG. He denies any complaints at this time. Denies further BMs. Denies tenesmus or urge to have BM. No abdominal pain. Feeling [place]. cc:: CC: Nayeli Jimenez MD Review of Systems Constitutional Constitutional: Denies poor appetite and Denies weight loss Eyes Eyes: Denies change in vision and Denies eye discharge ENT Ears, Nose, Mouth, and Throat: Denies nasal discharge, Denies sore throat and Denies vertigo Cardiovascular Cardiovascular: Denies chest pain and Denies dyspnea on exertion Respiratory Respiratory: Denies chest congestion, Denies cough and Denies dyspnea on exertion Gastrointestinal Gastrointestinal: Reports as per HPI Musculoskeletal Musculoskeletal: Denies arthralgias, Denies muscle weakness and Denies numbness Integumentary/Breasts Skin/Breast: Denies change in pigmentation and Denies rash Neurologic Neurologic: Denies numbness and Denies vertigo Psychiatric Psychiatric: Denies anxiety and Denies depression Hematologic/Lymphatic Hematologic/Lymphatic: Denies easy bruising and Denies lymphadenopathy [facility] Medical History (Updated 02/06/24 @ 02:47 by Sushant Cordon DO) Hypertension CAD (coronary artery disease) Type 1 diabetes mellitus Dupuytren's contracture of right hand Carpal tunnel syndrome of left wrist Cervical spine fracture Fracture of cervical spinous process Stomach ulcer previous rupture with repair. Melena Anxiety and depression Protein-calorie malnutrition, mild BPH (benign prostatic hyperplasia) Diabetes type 1- insulin pump in place. Surgical History (Updated 02/06/24 @ 02:45 by Sushant Cordon DO) History of tonsillectomy History of resection of pancreas History of back surgery H/O heart artery stent History of repair of hip fracture R side with 3 nails in. H/O splenectomy History of pancreatectomy Family History Brother Cancer Son Sarcoma Mother No problems noted. Father No problems noted. Sister Leukemia Social History Smoking Status: Current some day smoker Tobacco Type: cigarettes Substance Use Type: None Meds Medications and Allergies Allergies No Known Allergies Allergy (Verified 02/05/24 19:08) Home Medications aspirin 81 mg tablet,delayed release 81 mg PO DAILY 30 days #30 tabs 05/07/23 [Rx Confirmed 02/05/24] ruuoyn-snzvurrv-maajvqt 24,000-76,000-120,000 unit capsule,delayed rel (Creon) 2cap PO TID.WITH.MEALS 30 days #120 caps 05/07/23 [Rx Confirmed 02/06/24] nitroglycerin 0.4 mg sublingual tablet 0.4 mg sublingual Q5M PRN Chest Pain 30 days #30 tabs 05/07/23 [Rx Confirmed 02/05/24] paroxetine HCl 30 mg tablet 30 mg PO DAILY 30 days #30 tabs 05/07/23 [Rx Confirmed 02/05/24] tamsulosin 0.4 mg capsule 0.4 mg PO DAILY 30 days #30 caps 05/07/23 [Rx Confirmed 02/05/24] acetaminophen 500 mg tablet 500 mg PO Q6HR PRN pain 08/31/23 [History Confirmed 10/28/23] clopidogrel 75 mg tablet 75 mg PO DAILY 08/31/23 [History Confirmed 02/05/24] insulin glargine 100 unit/mL (3 mL) subcutaneous pen (Lantus Solostar U-100 Insulin) 8 unit subcut HS 08/31/23 [History Confirmed 10/28/23] efsymaamijbz-chuhcpon-ljfffq tablet (Multivitamin 50 Plus tablet) 1 tab PO DAILY08/31/23 [History Confirmed 10/28/23] insulin aspart U-100 100 unit/mL (3 mL) subcutaneous pen (Novolog FlexPen U-100 Insulin aspart) See Protocol subcut TID.WM.HS #0 mL 09/03/23 [Rx Confirmed 10/28/23] blood sugar diagnostic #120 ea 09/05/23 [Rx Confirmed 09/28/23] lancets #120 ea 09/05/23 [Rx Confirmed 09/28/23] pen needle, diabetic 32 gauge x 5/32 (BD Ultra-Fine Marichuy Pen Needle) #100 ea 09/05/23 [Rx Confirmed 09/28/23] cholecalciferol (vitamin D3) 100 mcg PO DAILY 10/26/23 [History Confirmed 10/28/23] loratadine 10 mg tablet (Claritin) 1 tab PO DAILY 10/26/23 [History Confirmed 10/28/23] lutein 6 mg capsule 6 mg PO DAILY 10/26/23 [History Confirmed 10/28/23] multivitamin with minerals-folic acid 12 mcg chewable tablet (Centrum Adults) 1 tab PO DAILY 10/26/23 [History Confirmed 10/28/23] atorvastatin 80 mg tablet 80 mg PO QHS 90 days #90 tabs 10/28/23 [Rx Confirmed 02/05/24] valsartan 80 mg tablet 80 mg PO DAILY 90 days #90 tabs 10/28/23 [Rx Confirmed 02/05/24] pantoprazole 40 mg tablet,delayed release (Protonix) 40 mg PO DAILY 90 days #180tabs 11/11/23 [Rx Confirmed 10/28/23] vcayhp-xcadrrcm-uquascx 24,000-76,000-120,000 unit capsule,delayed rel (Creon) 1cap PO TID 02/05/24 [History Confirmed 02/05/24] metoprolol succinate 25 mg tablet,extended release 24 hr (Toprol XL) 12.5 mg PO BID 02/05/24 [History Confirmed 02/05/24] spironolactone 25 mg tablet (Aldactone) 25 mg PO QAM 02/05/24 [History Confirmed 02/05/24] Exam Physical Exam Vital Signs: Temp Pulse Resp BP Pulse Ox O2 Del Method 98.1 F 51 L 16 151/73 H 98 Room Air 02/06/24 07:31 02/06/24 07:31 02/06/24 07:31 02/06/24 07:31 02/06/24 07:31 02/06/24 07:56 Const General: no acute distress and well developed HEENT Head: normocephalic and atraumatic Mouth: moist mucous membranes Eyes Sclera: sclerae normal (no scleral icterus) EOM: EOM intact bilaterally Neck Other: trachea midline Resp Effort & Inspection: normal respiratory effort and able to speak in complete sentences GI Inspection: normal to inspection and non-distended Palpation: soft and nontender Skin General: turgor normal and no jaundice Neuro General: patient alert and patient oriented x3 Psych Appearance: grossly normal Mental Status: mental status grossly normal Results - Gastroenterology Labs Labs: Laboratory Results - last 24 hr 02/05/24 02/05/24 02/05/24 19:34 21:33 23:44 Corrected WBC 9.0 Uncorrected WBC Count 9.0 RBC 3.11 L Hgb 7.7 L Hct 23.7 L MCV 76.3 L MCH 24.9 L MCHC 32.6 RDW 20.3 H Plt Count 277 MPV 10.6 H Neut % (Auto) 78.3 Lymph % (Auto) 16.3 [place] % (Auto) 4.8 Eos % (Auto) 0.2 Baso % (Auto) 0.4 Nucleat RBC Rel Count 0.1 Neut # (Auto) 7.0 Lymph # (Auto) 1.5 [place] # (Auto) 0.4 Eos # (Auto) 0.0 Baso # (Auto) 0.0 Monocyte Dist Width 17.22 Platelet Estimate Normal Plt Morphology Comment Normal RBC Morphology N/A Polychromasia Moderate Hypochromasia Marked Poikilocytosis Marked Anisocytosis Moderate Microcytosis Slight Macrocytosis Slight Target Cells Slight Crenated Cell Slight Acanthocytes (Spur) Slight Schistocytes Moderate PT 15.5 H INR 1.3 APTT 23.6 L PHA Creatinine Clear 45.07 Sodium 133 L Potassium 5.1 Chloride 103 Carbon Dioxide 23.1 Anion Gap 12.0 BUN 58 H Creatinine 1.09 Est GFR (CKD-EPI) > 60.0 Glucose 158 H POC Glucose Calcium 8.6 Total Bilirubin 0.5 Direct Bilirubin 0.10 Indirect Bilirubin 0.4 AST 15 ALT 15 Alkaline Phosphatase 104 Total Creatine Kinase 114 Troponin I High Sens 50.8 H* 77.7 H* 85.5 H* B-Natriuretic Peptide 399.0 H Total Protein 5.7 L Albumin 3.3 L Globulin 2.4 Albumin/Globulin Ratio 1.4 Lipase 5.0 L Slides for Path Review Ordered path review Blood Type A Positive Antibody Screen Negative Crossmatch (AHG) See Detail 02/06/24 06:56 Corrected WBC Uncorrected WBC Count RBC Hgb Hct MCV MCH MCHC RDW Plt Count MPV Neut % (Auto) Lymph % (Auto) [place] % (Auto) Eos % (Auto) Baso % (Auto) Nucleat RBC Rel Count Neut # (Auto) Lymph # (Auto) [place] # (Auto) Eos # (Auto) Baso # (Auto) Monocyte Dist Width Platelet Estimate Plt Morphology Comment RBC Morphology Polychromasia Hypochromasia Poikilocytosis Anisocytosis Microcytosis Macrocytosis Target Cells Crenated Cell Acanthocytes (Spur) Schistocytes PT INR APTT PHA Creatinine Clear Sodium Potassium Chloride Carbon Dioxide Anion Gap BUN Creatinine Est GFR (CKD-EPI) Glucose POC Glucose 138 Calcium Total Bilirubin Direct Bilirubin Indirect Bilirubin AST ALT Alkaline Phosphatase Total Creatine Kinase Troponin I High Sens B-Natriuretic Peptide Total Protein Albumin Globulin Albumin/Globulin Ratio Lipase Slides for Path Review Blood Type Antibody Screen Crossmatch (AHG) A&P - Gastroenterology Assessment/Plan (1) History of pancreatectomy: (2) Acute GI bleeding: (3) Acute electrocardiogram changes: (4) Elevated troponin: (5) CAD (coronary artery disease): Plan -Pt with EKG changes and recent admission with NSTEMI requiring heparinization and d/c with lifevest -will need cardiac clearance prior to anesthesia -consider repeat TTE -ensure adequate IV access -recommend more liberal transfusion goal Hgb >9 until ACS ruled out -okay for CLD -If patient develops hemodynamic instability then recommend emergent transfer for CTA+embolization -plan for EGD once clear from a cardiac standpoint for MAC -continue high dose PPIs pending endoscopic evaluation -with hx of bowel-bowel anastomosis and recent ischemia/reduced EF he is at riskfor anastomotic ulcers (ischemic), will add sucralfate as well Thank you for this consult, will follow. Documented By: Manuel Wolff MD 02/06/24 0847 Signed By: <Electronically signed by Manuel Wolff MD> 02/06/24 0936 [facility] Work Phone: [phone] 607-188607-28-2024 History and physical note Author Sushant Cordon [facility] February 06, 2024 2:52am Note Date/Time February 06, 2024 2:22 am [facility] [address] [place] [address] Hospitalist H&P Signed Patient: Manolo Vickers MR#: [id number] : 1935 Acct:[id number] Age/Sex: 88 / M Adm Date: 4 Loc: Room: [address] [place] [address] Type: ADM IN Attending Dr: Sushant Cordon DO Copies to: DO Marie Cooper DO~ HPI DATE OF EXAMINATION: 02/06/24 CHIEF COMPLAINT: melanotic stool. HISTORY OF PRESENT ILLNESS: This is an 88-year-old man who was brought to the emergency room on Wednesday evening with reports of melanotic stool. He had a syncopal event at home. EMS had to be summoned to help get the patient back up. He became syncopal as they were carrying him down the stairs. Incidentally he was found to be wearing a LifeVest that apparently was ordered for him after recent hospital stay in [place]. In the emergency room the reason why the patient was hospitalized in [place] or where was unknown to the patient or his . Per the ER doctor's discussion with me the said that the patient only takes aspirin but seem to be very unclear about his medications. His stool was occult positive in the emergency room. While he was in the emergency room his troponin did trend upwards mildly going from 50.8 up to 77.7 and then 85.5. Chart is reviewed. On 07/16/2023 the patient had cardiac catheterization with PCI with drug eluting stents to the ostial/proximal LAD and also to diagonal branch. Will antiplatelet medication was recommended for 6 months. On 09/01/23 patient had an EGD by Dr. Shearer that found a 2 cm ulcer with a nonbleeding visible vessel and noted in the bulb of the duodenum. It was injected with epinephrine and then treated with bipolar electrocoagulation. The stomach was normal. Then on 11/11/2023 the patient had a follow-up EGD that showed anatomicchanges consistent with previous duodenectomy otherwise mucosa appeared normal. There was erythematous mucosa noted in the entire stomach and biopsies were taken to assess for H. pylori and it was recommended that he take Protonix of 40mg p.o. daily. When I see the patient in his room at 2:30 in the morning he wakens up fairly easily. 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 He describes that yesterday was terrible feeling very weak andlightheaded and he actually passed out several times. It seems like he was going back and forth between voiding urine and having bowel movements. He is able to explain that when he takes my Creon he always has nice lewis to yellow bowel movements. And his noticed that the bowel movement he was having wasblack and tarry. He did not have any abdominal pain with that. He did not haveany nausea or vomiting. He does not know his medications and relies on his Rose to set out his medications. When I asked him about NSAID use he did state that after coming home from the [facility] with the LifeVest he beganusing Aleve due to the discomfort the LifeVest was causing on his back. He doessay I never took more than prescribed. He does recall getting the endoscopy by Dr. Shearer back in November but did not really seem to fully comprehend the results. He says that now a [facility] was he originally went to [facility] where they did an EKG and then promptly transported him to [facility]. At [facility] he does not know all the testing done but he does not describe a cardiac catheterization, but he does describe an echocardiogram and then placement of the LifeVest. This patient does have a history of pancreatectomy somewhere in the year 2019 that apparently was done due to numerous cysts and lingering obstruction of the pancreatic duct and P told me in the past that the surgeon who performed a complete pancreatectomy told him that this would have turned into cancer eventually. And after that he developed diabetes that has been managed with a jean paul and a insulin pump Review of Systems Review of Systems Review of systems: 10 systems are reviewed and are negative except as mentioned elsewhere in the documentation. [facility] Medical History (Updated 02/06/24 @ 02:47 by Sushant Cordon DO) Hypertension CAD (coronary artery disease) Type 1 diabetes mellitus Dupuytren's contracture of right hand Carpal tunnel syndrome of left wrist Cervical spine fracture Fracture of cervical spinous process Stomach ulcer previous rupture with repair. Melena Anxiety and depression Protein-calorie malnutrition, mild BPH (benign prostatic hyperplasia) Diabetes type 1- insulin pump in place. Surgical History (Updated 02/06/24 @ 02:45 by Sushant Cordon DO) History of tonsillectomy History of resection of pancreas History of back surgery H/O heart artery stent History of repair of hip fracture R side with 3 nails in. H/O splenectomy History of pancreatectomy Family History Brother Cancer Son Sarcoma Mother No problems noted. Father No problems noted. Sister Leukemia Social History Smoking Status: Current some day smoker Tobacco Type: cigarettes Substance Use Type: None Meds Medications and Allergies Allergies No Known Allergies Allergy (Verified 02/05/24 19:08) Home Medications aspirin 81 mg tablet,delayed release 81 mg PO DAILY 30 days #30 tabs 05/07/23 [Rx Confirmed 02/05/24] pxyjrp-bhutziwo-mkqvsjf 24,000-76,000-120,000 unit capsule,delayed rel (Creon) 2cap PO TID.WITH.MEALS 30 days #120 caps 05/07/23 [Rx Confirmed 02/06/24] nitroglycerin 0.4 mg sublingual tablet 0.4 mg sublingual Q5M PRN Chest Pain 30 days #30 tabs 05/07/23 [Rx Confirmed 02/05/24] paroxetine HCl 30 mg tablet 30 mg PO DAILY 30 days #30 tabs 05/07/23 [Rx Confirmed 02/05/24] tamsulosin 0.4 mg capsule 0.4 mg PO DAILY 30 days #30 caps 05/07/23 [Rx Confirmed 02/05/24] acetaminophen 500 mg tablet 500 mg PO Q6HR PRN pain 08/31/23 [History Confirmed 10/28/23] clopidogrel 75 mg tablet 75 mg PO DAILY 08/31/23 [History Confirmed 02/05/24] insulin glargine 100 unit/mL (3 mL) subcutaneous pen (Lantus Solostar U-100 Insulin) 8 unit subcut HS 08/31/23 [History Confirmed 10/28/23] vswytlxjtblo-yaypfzcs-zpeytj tablet (Multivitamin 50 Plus tablet) 1 tab PO DAILY08/31/23 [History Confirmed 10/28/23] insulin aspart U-100 100 unit/mL (3 mL) subcutaneous pen (Novolog FlexPen U-100 Insulin aspart) See Protocol subcut TID.WM.HS #0 mL 09/03/23 [Rx Confirmed 10/28/23] blood sugar diagnostic #120 ea 09/05/23 [Rx Confirmed 09/28/23] lancets #120 ea 09/05/23 [Rx Confirmed 09/28/23] pen needle, diabetic 32 gauge x 5/32 (BD Ultra-Fine Marichuy Pen Needle) #100 ea 09/05/23 [Rx Confirmed 09/28/23] cholecalciferol (vitamin D3) 100 mcg PO DAILY 10/26/23 [History Confirmed 10/28/23] loratadine 10 mg tablet (Claritin) 1 tab PO DAILY 10/26/23 [History Confirmed 10/28/23] lutein 6 mg capsule 6 mg PO DAILY 10/26/23 [History Confirmed 10/28/23] multivitamin with minerals-folic acid 12 mcg chewable tablet (Centrum Adults) 1 tab PO DAILY 10/26/23 [History Confirmed 10/28/23] atorvastatin 80 mg tablet 80 mg PO QHS 90 days #90 tabs 10/28/23 [Rx Confirmed 02/05/24] valsartan 80 mg tablet 80 mg PO DAILY 90 days #90 tabs 10/28/23 [Rx Confirmed 02/05/24] pantoprazole 40 mg tablet,delayed release (Protonix) 40 mg PO DAILY 90 days #180tabs 11/11/23 [Rx Confirmed 10/28/23] jkfsws-msbacdtb-obcoqbw 24,000-76,000-120,000 unit capsule,delayed rel (Creon) 1cap PO TID 02/05/24 [History Confirmed 02/05/24] metoprolol succinate 25 mg tablet,extended release 24 hr (Toprol XL) 12.5 mg PO BID 02/05/24 [History Confirmed 02/05/24] spironolactone 25 mg tablet (Aldactone) 25 mg PO QAM 02/05/24 [History Confirmed 02/05/24] Allergy/Medication Comments: Please note that the home medication list may contain elements that are not accurate. This list of home medications will be updated during the hospital stay as more information becomes available. Exam Physical Exam Vital Signs: Temp Pulse Resp BP Pulse Ox O2 Del Method 97.6 F 60 14 123/62 93 L Room Air 02/05/24 19:13 02/06/24 01:50 02/06/24 01:50 02/06/24 01:50 02/06/24 01:50 02/06/24 01:50 Narrative: GEN: Awake, alert, oriented x 3. Fairly well conversant for his age and the touch up worker hour. He is wearing the [employer]. Jean Paul continuous glucose monitoring device on his arm. Insulin pump in place. Head: Normal Cephalic, Atraumatic. Eyes: Conjunctiva and sclera clear bilaterally. Nose: External nose and nares normal bilaterally. Mouth: Lips and tongue normal. Neck: No JVD. No thyromegaly. No lymphadenopathy. Lungs: Are entirely clear to auscultation bilaterally, no wheezing, no crackles. Heart: Regular rate and rhythm, no murmurs, rubs, or gallops. Abdomen: Soft, normal bowel sounds, no rigidity, guarding, or acute peritoneal signs. Extremities: No swelling or cords in the calves bilaterally, absolutely zero edema throughout both legs bilaterally Skin: No systemic rashes or lesions. Psychiatric: Calm. Conversant. Cooperative. Neuro: Moves all 4 extremities well so I do not detect any gross or focal or lateralizing deficits. Results - Hospitalist H&P Lab Results Labs: Laboratory Last Values Corrected WBC 9.0 X10E3/uL (4.1-10.5) 02/05/24 19:34 Uncorrected WBC Count 9.0 x10E3/uL (4.1-10.5) 02/05/24 19:34 RBC 3.11 X10E6/uL (3.90-5.60) L 02/05/24 19:34 Hgb 7.7 g/dL (13.0-17.0) L 02/05/24 19:34 Hct 23.7 % (38.8-50.0) L 02/05/24 19:34 MCV 76.3 fl (83.5-101) L 02/05/24 19:34 MCH 24.9 pg (27.5-35.2) L 02/05/24 19:34 MCHC 32.6 g/dL (32.5-35.6) 02/05/24 19:34 RDW 20.3 % (12.0-14.8) H 02/05/24 19:34 Plt Count 277 x10E3/uL (150-450) 02/05/24 19:34 MPV 10.6 fl (6.6-10.1) H 02/05/24 19:34 Neut % (Auto) 78.3 % (.) 02/05/24 19:34 Lymph % (Auto) 16.3 % (.) 02/05/24 19:34 [place] % (Auto) 4.8 % (.) 02/05/24 19:34 Eos % (Auto) 0.2 % (.) 02/05/24 19:34 Baso % (Auto) 0.4 % (.) 02/05/24 19:34 Nucleat RBC Rel Count 0.1 /100 WBC (0-0.5) 02/05/24 19:34 Neut # (Auto) 7.0 x10E3/uL (1.8-7.7) 02/05/24 19:34 Lymph # (Auto) 1.5 x10E3/uL (1.00-4.8) 02/05/24 19:34 [place] # (Auto) 0.4 x10E3/uL (0.0-0.8) 02/05/24 19:34 Eos # (Auto) 0.0 x10E3/uL (0.0-0.45) 02/05/24 19:34 Baso # (Auto) 0.0 x10E3/uL (0.0-0.2) 02/05/24 19:34 Monocyte Dist Width 17.22 % (0.00-20.00) 02/05/24 19:34 Platelet Estimate Normal (Normal) 02/05/24 19:34 Plt Morphology Comment Normal (Normal) 02/05/24 19:34 RBC Morphology N/A 02/05/24 19:34 Polychromasia Moderate 02/05/24 19:34 Hypochromasia Marked 02/05/24 19:34 Poikilocytosis Marked 02/05/24 19:34 Anisocytosis Moderate 02/05/24 19:34 Microcytosis Slight 02/05/24 19:34 Macrocytosis Slight 02/05/24 19:34 Target Cells Slight 02/05/24 19:34 Crenated Cell Slight 02/05/24 19:34 Acanthocytes (Spur) Slight 02/05/24 19:34 Schistocytes Moderate 02/05/24 19:34 PT 15.5 Seconds (9.0-12.9) H 02/05/24 19:34 INR 1.3 02/05/24 19:34 APTT 23.6 Seconds (25.1-36.5) L 02/05/24 19:34 PHA Creatinine Clear 45.07 02/05/24 19:34 Sodium 133 mmol/L (136-145) L 02/05/24 19:34 Potassium 5.1 mmol/L (3.5-5.1) 02/05/24 19:34 Chloride 103 mmol/L (98-107) 02/05/24 19:34 Carbon Dioxide 23.1 mmol/L (21.0-31.0) 02/05/24 19:34 Anion Gap 12.0 mEq/L (6.0-15.0) 02/05/24 19:34 BUN 58 mg/dL (7-25) H 02/05/24 19:34 Creatinine 1.09 mg/dL (0.70-1.30) 02/05/24 19:34 Est GFR (CKD-EPI) > 60.0 mL/Min 02/05/24 19:34 Glucose 158 mg/dL (70-100) H 02/05/24 19:34 Calcium 8.6 mg/dL (8.6-10.3) 02/05/24 19:34 Total Bilirubin 0.5 mg/dl (0.3-1.0) 02/05/24 19:34 Direct Bilirubin 0.10 mg/dL (0.03-0.18) 02/05/24 19:34 Indirect Bilirubin 0.4 mg/dL 02/05/24 19:34 AST 15 U/L (13-39) 02/05/24 19:34 ALT 15 U/L (7-52) 02/05/24 19:34 Alkaline Phosphatase 104 U/L (34-104) 02/05/24 19:34 Total Creatine Kinase 114 U/L (30-223) 02/05/24 19:34 Troponin I High Sens 85.5 pg/mL (0.0-20.0) H* 02/05/24 23:44 B-Natriuretic Peptide 399.0 pg/mL (5-100) H 02/05/24 19:34 Total Protein 5.7 gm/dL (6.4-8.9) L 02/05/24 19:34 Albumin 3.3 gm/dL (3.5-5.7) L 02/05/24 19:34 Globulin 2.4 gm/dL 02/05/24 19:34 Albumin/Globulin Ratio 1.4 02/05/24 19:34 Lipase 5.0 U/L (11.0-82.0) L 02/05/24 19:34 Slides for Path Review Ordered path review 02/05/24 19:34 Crossmatch (AHG) See Detail 02/05/24 19:34 Microbiology Results Micro: Microbiology - Results from entire visit 02/05/24 19:30 Stool Stool Occult Blood (DORON) - Final Assessment & Plan Assessment/Plan (1) Acute GI bleeding: (2) Elevated troponin: (3) CAD (coronary artery disease): (4) Hypertension: (5) History of pancreatectomy: (6) Type 1 diabetes mellitus: Plan Assessment: Acute symptomatic anemia with lightheadedness and syncope and collapse. Acute, recurrent, upper GI bleeding. Recent NSAID use. Coronary artery disease with drug-eluting stents placed in July 2023. 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 Resulting type 1 diabetes, managed with continuous insulin pump and jean paul continuous glucose monitor. 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 Right now his congestive heart failure is extremely well compensated with no legedema and entirely clear lungs to auscultation. Plan: Hospital admission, inpatient status. Will transfuse 1 unit of packed red blood cells this morning and then get a.m. labs and then likely transfuse a second unit of packed red blood cells. Given his coronary artery disease I favor keeping his goal hemoglobin closer to 8.0. I anticipate further reduction in his hemoglobin count due to the recent nature of the bleeding. The emergency room did provide a an 80 mg Protonix IV bolus and Protonix 8 mg anhour infusion continues. Hold home aspirin 81 mg daily and hold home Plavix 81 mg daily. Sleeve compression devices only for DVT prophylaxis. It is okay for the patient to use his home insulin pump and his continuous glucose monitoring device but I favor having our nurses check his blood sugars before meals and at bedtime for completeness. N.p.o. except for needed medications with sip of water. Consult to gastroenterology. Consult to cardiology regarding the elevated troponin level and ongoing management for his heart failure with reduced ejection fraction in the future. IP vs OBS Justification Based on differential dx, clinical care plan, and risk of adverse events, if untreated, in my clinical judgement this patient requires an acute care setting as: INPATIENT because of an expectation of an over 2 midnight stay. Estimated length of stay (# of days): 5 Documented By: Sushant Cordon DO 8 Signed By: <Electronically signed by Sushant Cordon DO> 02/06/24251 [facility] Work Phone: 1(416) 818-226304-11-2024 Evaluation note* Author [facility] Authored October 21, 2023 8:5 8am 88-year-old man with history of coronary artery disease s/p stent placement on 07/16/2023 who was recently hospitalized for melena s/p EGD with control of bleeding who came today for follow-up. 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 pylori, patient completed quadruple therapy, he has been on Protonix 40 mg twice daily since the EGD. -Will arrange for EGD to assess ulcer healing and to confirm H. pylori eradication. -I discussed with the patient possible Lewis's diagnosis and recommended EGD every 3 to 5 years. 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 He will follow up with primary Cardiology next week [facility] Work Phone: 1([phone]) 978-607502-05-2024 Miscellaneous Notes* Assessment & Plan Note - [...] Problem(s): ASHD (arteriosclerotic heart disease) Jun 2023 [facility] presented due to mechanical fall. Incidental troponin elevations Echo EF 40-45% Cath: two-vessel disease; ef 40% anterior hypokinesis Elective PCI: Jul LAD: unsuccessful attempt - CHIEF PHYSICAL THERAPIST oDiag PCI/[place] 3.5 x 18mm Daily activity < 4 METs documented in this encounterUniversity [facility]als [facility] Work Phone: [phone]) 675-285002-05-2024 Evaluation + Plan note* Assessment & Plan Note - JAMIE Miramontes - 08/16/2023 2:37 PM ESTAssociated Problem(s): ASHD (arteriosclerotic heart disease) Jun 2023 [facility] presented due to mechanical fall. Incidental troponin elevations Echo EF 40-45% Cath: two-vessel disease; ef 40% anterior hypokinesis Elective PCI: Jul LAD: unsuccessful attempt - CHIEF PHYSICAL THERAPIST oDiag PCI/[place] 3.5 x 18mm Daily activity < 4 METs [facility] Work Phone: [phone]) 156-749302-05-2024 History of Present illness Narrative* JAMIE Miramontes [...] to date. Will be seeking POCfrom primary spa manager. Patient reports that overall has complaint(s) of [...] to Plavix. Will schedule follow-up with primary spa manager Dr. Perez next week. Review of Systems [...] Assessment: ASHD (arteriosclerotic heart disease) Jun 2023 [facility] presented due to mechanical fall. Incidental troponin elevations Echo EF 40-45% Cath: two-vessel disease; ef 40% anterior hypokinesis Elective PCI: Jul LAD: unsuccessful attempt - CHIEF PHYSICAL THERAPIST oDiag PCI/[place] 3.5 x 18mm Daily activity [...] medications to the office Sammy Wolff MSN, [employer]K [employer]TU[employer]ENDER [employer], PMHNP-[facility] Please excuse any errors in grammar or translation related to this dictation. Voice recognition software was utilized to prepare this document. documented in this encounterUniversity [facility]als [facility] Work Phone: 1([phone]) 333-536102-05-2024 Instructions* Patient Instructions* JAMIE Miramontes - 08/16/2023 [...] medications to the office documented in this encounterUniversity [facility]als [facility] Work Phone: [phone]) 360-645001-05-2024 Discharge summary Author Federico Davis [facility] July 16, 2023 4:09pm Note Date/Time July 16, 2023 4: 06pm [facility] [address] [place] [address] Discharge Summary Signed Patient: Manolo Vickers MR#: [id number] : 1935 Acct:[id number] Age/Sex: 88 / M Adm Date: 4 [...] Final Discharge Diagnosis: 1. Recent non-ST elevation [place] associated with fall and hip fracture 2. Severe two-vessel ASHD involving mid LAD and diagonal branch bifurcation 3. Mild LV dysfunction 4. Successful PCI ostial diagonal branch into the LAD with 3.5 x 18 mm [place] stent 5. Chronic total occlusion proximal/mid LAD Summary Hospital Course Hospital course: 88-year-old gentleman with recent fall and hip fracture complicated by non-ST elevation [place], abnormal stress imaging and subsequent diagnosis of [...] branch. LAD was attempted and deemed a CHIEF PHYSICAL THERAPIST and therefore aborted, diagonal branch was stented [...] % (Auto) 75.7, Lymph % (Auto) 8.4, [place] % (Auto) 15.1, Eos % (Auto) 0.3, Baso % (Auto) 0.5, Nucleat RBC Rel Count 0.1, Neut # (Auto) 6.3, Lymph # (Auto) 0.7 L, [place] # (Auto) 1.3 H, Eos # (Auto) [...] doctor or pharmacist, without first calling the spa manager who implanted the stent. If you require [...] weight lifting, stair steppers, etc. until the spa manager approves these activities. Check with the spa manager on your first follow-up visit. CALL YOUR PHYSICIAN at [phone]: -If bleeding should occur from the catheter insertion site- apply pressure to the site then immediately call us. -Report any fever, redness, drainage, increased swelling, or firmness at the catheter insertion site. Some bruising or slight swelling may be present at thetime of discharge. -Should arm or leg become cold, numb, white, or blue, contact the spa manager immediately. -IF you should experience episodes of [...] is recommended. Please call Central Scheduling at [phone] to schedule your appointment.] The attending spa manager or [facility] nurse clinician should provide you with specific instructions regarding activity, diet, medications, and further follow up for you. Follow the medication instructions provided on your discharge. If the dosages and instructions on this sheet differ from the dosage and instructions on the bottle, follow the instructions on the bottle. [facility] is not responsible for incorrect [...] Days Qty: 30 0RF Follow Up: [facility] [Outside] - 08/16/23 2:00 pm Documented By: Federico Davis DO 07/16/23 1602 Signed By: <Electronically signed by Federico Davis DO> 07/16/23 1609 [facility] Work Phone: [phone]) 195-836601-05-2024 [facility]11[facility] History of Present illness Narrative* Govind Davis DO - 05/25/2023 1:00 PM EST Subjective Manolo Vickers is a 88 y.o. male Chief Complaint Hospital Follow-up Seen in cardiology consultation at the request of Dr. Anat Perez for further evaluation and management in regards to coronary artery disease, recent non-ST elevation [place] with moderately reduced left ventricular dysfunction and [...] Future 3. NSTEMI (non-ST elevated myocardial infarction) ([facility]/HCC) - Follow Up In Cardiology; Future 4. Essential hypertension 5. Diabetes mellitus type II, non insulin dependent (CMS/HCC) 6. Closed fracture of right hip, initial encounter (CMS/HCC) [facility] Work Phone: 1(288) 555-288311-14-2023 Instructions* Patient Instructions* Lori Pelayo LPN - [...] your visit. documented in this encounterUniversity Hospitals [facility] Work Phone: [phone]) 527-201711-10-2023 Evaluation note* Encounter Date Diagnosis Assessment Notes Treatment Notes Treatment Clinical Notes May, Closed displaced intertrochanteric fracture of right femur, initial encounter (ICD-10 - S72.141A) Radiographs of right hip was reviewed with the patient today, along with a physical examination. Patient should continue with PT. Continue use of pain medication to control pain. [employer] [employer] Other 10-27-2023 Progress note Author Fredi Medrano [facility] May 07, 2023 12:48pm Note Date/Time May 07, 2023 1 2:36pm [facility] [address] [place] [address] Physiatry(Rehab) Progress Note Signed Patient: Manolo Vickers MR#: [id number] : 1935 Acct:[id number] Age/Sex: 88 / M Adm Date: 3 Loc: Room: 6F2284-5 Type: ADM IN Attending Dr: Fredi Medrano [...] hypoglycemic in 40s. Patient was brought to [facility] ER where imaging demonstrated mildly displaced right [...] does not believe he has had an [place] and is planning on performing an intervention [...] mg 05/03/23 16:59 Bisacodyl 10 Mg Supp.Rect TX 05/02/24 16:58 DAILY PRN Constipation Calcium Carbonate [...] 16:59 Docusate Enema 283 Mg/5 Ml Enema [place] 05/02/24 16:58 DAILY PRN Constipation Enoxaparin Sodium [...] Insuln.Pen SUBCUT 05/02/24 16:59 6 units TID.WITH.MEALS [facility] Administration Protocol Insulin Aspart 0 units [...] Code(s): I25.10 - Atherosclerotic heart disease of [place] coronary artery without angina pectoris Status: Acute [...] Code(s): I25.10 - Atherosclerotic heart disease of [place] coronary artery without angina pectoris Status: Acute (9) Postoperative pain, acute, hip: Code(s): G89.18 - Other acute postprocedural pain; M25.559 - Pain in unspecified hip Status: Acute Plan 88-year-old male presenting to acute inpatient rehabilitation unit with functional impairments secondary to right hip fracture s/p repair. Hospital course complicated by non-[place] troponin elevation. He was found to have [...] equipment to enhance the patient's a functional cheondoism Ensure adequate nutrition and hydration Sleep no issues Pain: Continue current regimen. Discharge planning Home with in 7 to 10 days. I spent greater than 15 minutes for services, including ocpe-mx-czes encounter with the patient, discussion of the case, plan of care, and exam; and hwlmsny-xj-nyvu activities, such as reviewing pertinent oncology consultant documentation, recent therapy notes, laboratory and radiology studies, and discussion of case with care team including physician, nursing, catalytic case operator, and therapists. More than 50 % of time was spent on patient/family counseling or coordination ofcare. Plan: I completed a substantive portion of this encounter, the medical decision makingportion of this note in its entirety, including Allied health note review, nursing note review, oncology consultant note review, discussion with nursing and case management, and more than 50% of my time was spent on counseling and coordination of care, time spent 25 minutes Patient was personally seen by me, Dr. Medrano, on the day of encounter, reviewed the history and the relevant portions of the chart, including current orders, allied health and oncology consultant notes, labs/imaging and performed smyth elements of exam and I formulated the plan of care and facilitated the medical decision making. Documented By: Fredi Medrano MD 1234 Signed By: <Electronically signed by Fredi Medrano MD> 05/07/23 1248 [facility] Work Phone: 1(874) 103-523210-26-2023 Progress note Author Fredi Medrano [facility] May 06, 2023 2:46pm Note Date/Time May 06, 2023 1 2:53pm [facility] [address] [place] [address] Physiatry(Rehab) Progress Note Signed Patient: Manolo Vickers MR#: [id number] : 1935 Acct:[id number] Age/Sex: 88 / M Adm Date: 3 Loc: Room: [address] [place] [address] Type: ADM IN Attending Dr: Fredi Medrano [...] hypoglycemic in 40s. Patient was brought to [facility] ER where imaging demonstrated mildly displaced right [...] does not believe he has had an [place] and is planning on performing an intervention [...] and affect appropriate. Normal speech. Objective <Teena Victoria, SILK SPOOLER - Last Filed: 05/06/23 13:14> Labs 05/04/23 [...] mg 05/03/23 16:59 Bisacodyl 10 Mg Supp.Rect TX 05/02/24 16:58 DAILY PRN Constipation Calcium Carbonate [...] 16:59 Docusate Enema 283 Mg/5 Ml Enema TX 05/02/24 16:58 DAILY PRN Constipation Enoxaparin Sodium [...] Insuln.Pen SUBCUT 05/02/24 17:59 Not Given ACHS [facility] Protocol Insulin Glargine 7 units 05/03/23 [...] Code(s): I25.10 - Atherosclerotic heart disease of [place] coronary artery without angina pectoris Status: Acute [...] Code(s): I25.10 - Atherosclerotic heart disease of [place] coronary artery without angina pectoris Status: Acute (9) Postoperative pain, acute, hip: Code(s): G89.18 - Other acute postprocedural pain; M25.559 - Pain in unspecified hip Status: Acute Plan 88-year-old male presenting to acute inpatient rehabilitation unit with functional impairments secondary to right hip fracture s/p repair. Hospital course complicated by non-[place] troponin elevation. He was found to have [...] equipment to enhance the patient's a functional cheondoism Ensure adequate nutrition and hydration Sleep no issues Pain: Continue current regimen. Discharge planning Home with in 7 to 10 days. I spent greater than 15 minutes for services, including kwmh-no-jkph encounter with the patient, discussion of the case, plan of care, and exam; and tiyynff-fw-hflp activities, such as reviewing pertinent oncology consultant documentation, recent therapy notes, laboratory and radiology studies, and discussion of case with care team including physician, nursing, catalytic case operator, and therapists. More than 50 [...] the chart, including currentorders, allied health and oncology consultant notes, labs/imaging and plan of care as above. Documented By: Teena Victoria APRN 05/06/23 1 250 Signed By: <Electronically signed by AMADA Victoria> 05/06/23 1314 <Electronically signed by Fredi Medrano MD> 05/06/23 7012 [facility] Work Phone: 1([phone] 709-792510-26-2023 Consult note Author Vidya Robert [facility] May 06, 2023 1:15pm Note Date/Time May 04, 2023 3 :49pm [facility] [address] [place] [address] Hospitalist Consult Note Signed Patient: Manolo Vickers MR#: [id number] : 1935 Acct:[id number] Age/Sex: 88 / M Adm Date: 3 Loc: Room: 6U0258-7 Type: ADM IN Attending Dr: Fredi Medrano [...] noted below or in HPI [facility] Medical History (Updated 05/04/23 @ 16:15 [...] Allergies Allergy (Verified 04/28/23 12:20) Home Medications jvenvg-uxxrnale-txyhzpp 24,000-76,000-120,000 unit capsule,delayed rel (Creon) 2cap PO [...] mg 05/03/23 16:59 Bisacodyl 10 Mg Supp.Rect TX 05/02/24 16:58 DAILY PRN Constipation Calcium Carbonate [...] 16:59 Docusate Enema 283 Mg/5 Ml Enema TX 05/02/24 16:58 DAILY PRN Constipation Enoxaparin Sodium 40 mg 05/04/23 10:00 05/04/23 11:25 Enoxaparin 40 Mg/0.4 Ml Syringe SUBCUT 05/03/24 09:59 40 mg DAILY@1000 TAVIA Administration Insulin Aspart 0 units 05/03/23 17:00 05/04/23 13:00 Insulin Aspart 300 Units/3 Ml Insuln.Pen SUBCUT 05/02/24 16:59 7 units TID.WITH.MEALS [facility] Administration Protocol Insulin Aspart 0 units 05/03/23 18:00 05/04/23 12:35 Insulin Aspart 300 Units/3 Ml Insuln.Pen SUBCUT 05/02/24 17:59 2 units ACHS [facility] Administration Protocol Insulin Glargine 7 units [...] % (Auto) 64.9, Lymph % (Auto) 23.0, [place] % (Auto) 9.9, Eos % (Auto) 1.5, Baso % (Auto) 0.7, Nucleat RBC Rel Count 0.2, Neut # (Auto) 4.6, Lymph # (Auto) 1.6, [place] # (Auto) 0.7, Eos # (Auto) 0.1, [...] Documented By: Nidia Wright APRN 04/12 11/01 9312 Signed By: <Electronically signed by AMADA Wright> 05/05/23 5381 <Electronically signed by Vidya Robert MD> 05/06/23 2258 [facility] Work Phone: 1([phone]) 333-736410-25-2023 Progress note Author Fredi Medrano [facility] May 05, 2023 1:10pm Note Date/Time May 05, 2023 1 :11pm [facility] [address] [place] [address] Physiatry(Rehab) Progress Note Signed Patient: Manolo Vickers MR#: [id number] : 1935 Acct:[id number] Age/Sex: 88 / M Adm Date: 3 Loc: Room: [address] [place] [address] Type: ADM IN Attending Dr: Fredi Medrano [...] hypoglycemic in 40s. Patient was brought to [facility] ER where imaging demonstrated mildly displaced right [...] does not believe he has had an [place] and is planning on performing an intervention [...] mg 05/03/23 16:59 Bisacodyl 10 Mg Supp.Rect TX 05/02/24 16:58 DAILY PRN Constipation Calcium Carbonate [...] 16:59 Docusate Enema 283 Mg/5 Ml Enema TX 05/02/24 16:58 DAILY PRN Constipation Enoxaparin Sodium [...] Code(s): I25.10 - Atherosclerotic heart disease of [place] coronary artery without angina pectoris Status: Acute [...] Code(s): I25.10 - Atherosclerotic heart disease of [place] coronary artery without angina pectoris Status: Acute (9) Postoperative pain, acute, hip: Code(s): G89.18 - Other acute postprocedural pain; M25.559 - Pain in unspecified hip Status: Acute Plan 88-year-old male presenting to acute inpatient rehabilitation unit with functional impairments secondary to right hip fracture s/p repair. Hospital course complicated by non-[place] troponin elevation. He was found to have [...] equipment to enhance the patient's a functional cheondoism Ensure adequate nutrition and hydration Sleep no issues Pain: Continue current regimen. Discharge planning Home with in 7 to 10 days. Plan: I completed a substantive portion of this encounter, the medical decision makingportion of this note in its entirety, including Allied health note review, nursing note review, oncology consultant note review, discussion with nursing and case management, and more than 50% of my time was spent on counseling and coordination of care, time spent 25 minutes Patient was personally seen by me, Dr. Medrano, on the day of encounter, reviewed the history and the relevant portions of the chart, including current orders, allied health and oncology consultant notes, labs/imaging and performed smyth elements of exam and I formulated the plan of care and facilitated the medical decision making. Documented By: Fredi Medrano MD 1308 Signed By: <Electronically signed by Fredi Medrano MD> 05/05/23 1310 [facility] Work Phone: 1([phone]) 818-989610-25-2023 History and physical note Author Fredi Medrano [facility] May 05, 2023 10:01am Note Date/Time May 04, 2023 1 1:35am [facility] [address] [place] [address] Physiatry (Rehab) H&P Signed Patient: Manolo Vickers MR#: [id number] : 1935 Acct:[id number] Age/Sex: 88 / M Adm Date: 3 Loc: Room: [address] [place] [address] Type: ADM IN Attending Dr: Fredi Medrano [...] hypoglycemic in 40s. Patient was brought to [facility] ER where imaging demonstrated mildly displaced right [...] does not believe he has had an [place] and is planning on performing an intervention [...] Does not use assistive devices. [facility] Medical History Anxiety and depression BPH [...] 12:20) Home and Active Meds: Home Medications tfutwh-iexugcki-rlzrkko 24,000-76,000-120,000 unit capsule,delayed rel (Creon) 2cap PO [...] 500 Mg Tablet) 500 mg PO Q6HR [facility] Stop: 05/02/24 17:59 Last Admin: 05/04/23 05:22 [...] Bisacodyl (Bisacodyl 10 Mg Supp.Rect) 10 mg [place] DAILY PRN PRN Reason: Constipation Stop: 05/02/24 16:58 Calcium Carbonate (Calcium Carbonate/Vitamin D3 500 Mg/200 Unit Tablet) 1 tab PO TID.WITH.MEALS [facility] Stop: 05/03/24 07:59 Last Admin: 05/04/23 08:10 Dose: 1 tab Cyclobenzaprine HCl (Cyclobenzaprine 5 Mg Tablet) 5 mg PO Q8H PRN PRN Reason: Muscle Spasm Stop: 05/03/24 10:29 Docusate Sodium (Docusate 100 Mg Capsule) 100 mg PO BID PRN PRN Reason: Constipation Stop: 05/02/24 16:58 Docusate Sodium (Docusate Enema 283 Mg/5 Ml Enema) 283 mg TX DAILY PRN PRN Reason: Constipation Stop: 05/02/24 16:58 Enoxaparin Sodium (Enoxaparin 40 Mg/0.4 Ml Syringe) 40 mg SUBCUT DAILY@1000 TAVIA Stop: 05/03/24 09:59 Insulin Aspart (Insulin Aspart 300 Units/3 Ml Insuln.Pen) 0 units SUBCUT TID.WITH.MEALS [facility]; Protocol Stop: 05/02/24 16:59 Last Admin: 05/04/23 08:27 Dose: 7 units Insulin Aspart (Insulin Aspart 300 Units/3 Ml Insuln.Pen) 0 units SUBCUT ACHS [facility]; Protocol Stop: 05/02/24 17:59 Last Admin: 05/04/23 08:27 Dose: 1 units Insulin Glargine (Insulin Glargine 300 Units/3 Ml Insuln.Pen) 7 units SUBCUT BID [facility] Stop: 05/02/24 20:59 Last Admin: 05/04/23 08:16 [...] 30 Mg Tablet) 30 mg PO DAILY [facility] Stop: 05/03/24 08:59 Last Admin: 05/04/23 08:10 Dose: 30 mg Sennosides (Sennosides 8.6 Mg Tablet) 2 tab PO DAILY@12 PRN PRN Reason: If no BM in 2 days Stop: 05/03/24 11:59 Sodium Chloride (Sodium Chloride 0.9 % 10 Ml Syringe) 0 ml IV-PUSH PRN PRN PRN Reason: Flush Stop: 05/02/24 16:58 Tamsulosin HCl (Tamsulosin 0.4 Mg Cap.Er.24h) 0.4 mg PO DAILY TAVIA Stop: 05/03/24 08:59 Last Admin: 05/04/23 08:10 Dose: 0.4 mg Triamcinolone Acetonide (Triamcinolone 0.1% Cream 15 Gm Tube) 1 applic TOPICAL QID PRN PRN Reason: Irritation Stop: 05/02/24 17:10 Valsartan (Valsartan 80 Mg Tablet) 80 mg PO DAILY [facility] Stop: 05/03/24 08:59 Last Admin: 05/04/23 [...] % (Auto) 64.9 Lymph % (Auto) 23.0 [place] % (Auto) 9.9 Eos % (Auto) 1.5 Baso % (Auto) 0.7 Nucleat RBC Rel Count 0.2 Neut # (Auto) 4.6 Lymph # (Auto) 1.6 [place] # (Auto) 0.7 Eos # (Auto) 0.1 [...] MPV Neut % (Auto) Lymph % (Auto) [place] % (Auto) Eos % (Auto) Baso % (Auto) Nucleat RBC Rel Count Neut # (Auto) Lymph # (Auto) [place] # (Auto) Eos # (Auto) Baso # [...] 24 hour daily monitoring and intervention from Camera Systems Engineer as well as other consulting physicians including internal medicine as well as 24 hour daily broomcorn press feeder nursing - for medical safe / optimal [...] Code(s): I25.10 - Atherosclerotic heart disease of [place] coronary artery without angina pectoris Status: Acute [...] Code(s): I25.10 - Atherosclerotic heart disease of [place] coronary artery without angina pectoris Status: Acute (9) Postoperative pain, acute, hip: Code(s): G89.18 - Other acute postprocedural pain; M25.559 - Pain in unspecified hip Status: Acute Plan 88-year-old male presenting to acute inpatient rehabilitation unit with functional impairments secondary to right hip fracture s/p repair. Hospital course complicated by non-[place] troponin elevation. He was found to have [...] equipment to enhance the patient's a functional cheondoism Ensure adequate nutrition and hydration Sleep no issues Pain: Continue current regimen. Discharge planning Home with in 7 to 10 days. I spent greater than 45 minutes for services, including ukgi-sg-pvxv encounter with the patient, discussion of the case, plan of care, and exam; and zgjjdir-cv-ddqp activities, such as reviewing pertinent oncology consultant documentation, recent therapy notes, laboratory and radiology studies, and discussion of case with care team including physician, nursing, catalytic case operator, and therapists. More than 50 % of time was spent on patient/family counseling or coordination ofcare. Plan: I completed a substantive portion of this encounter, the medical decision makingportion of this note in its entirety, including Allied health note review, nursing note review, oncology consultant note review, discussion with nursing and case management, and more than 50% of my time was spent on counseling and coordination of care, time spent 70 minutes Patient was personally seen by me, Dr. Medrano, on the day of encounter, within 24 hours of rehab admission, reviewed the history and the relevant portions of the chart, including current orders, allied health and oncology consultant notes, labs/imaging and performed smyth elements of exam and I formulated the planof care and facilitated the medical decision making. Documented By: Teena Victoria APRN 05/04/23 1 122 Signed By: <Electronically signed by AMADA Victoria> 05/04/23 1209 <Electronically signed by Fredi Medrano MD> 05/05/23 1001 [facility] Work Phone: [phone] 430-586510-23-2023 Progress note Author Ashwini Conrad [facility] May 03, 2023 12:02pm Note Date/Time May 03, 2023 1 1:49am [facility] [address] [place] [address] Orthopedic Progress Note Signed Patient: Manolo Vickers MR#: [id number] : 1935 Acct:[id number] Age/Sex: 88 / M Adm Date: 3 Loc: Room: [address] [place] [address] Type: ADM IN Attending Dr: Humberto Diaz [...] Code(s): I25.10 - Atherosclerotic heart disease of [place] coronary artery without angina pectoris Status: Acute [...] signed by Ashwini Conrad MD> 05/03/23 1202 [facility] Work Phone: [phone] 600-128410-22-2023 Progress note Author Sushant Cordon [facility] May 02, 2023 2:35pm Note Date/Time May 02, 2023 2 :35pm [facility] [address] [place] [address] Hospitalist Progress Note Signed Patient: Manolo Vickers MR#: [id number] : 1935 Acct:[id number] Age/Sex: 88 / M Adm Date: 3 Loc: 4N Room: [id number] Type: ADM IN Attending Dr: Sushant Cordon DO Copies to: ~ Date of Service: 05/02/2023 Subjective Subjective Narrative: I discussed the case earlier today on rounds with cardiology with Dr. Bal Martines. He indicates that cardiac catheterization can be [...] mg 04/28/23 17:19 Bisacodyl 10 Mg Supp.Rect TX 04/27/24 17:18 DAILY PRN Constipation Calcium Carbonate [...] Units/3 Ml Insuln.Pen SUBCUT 05/01/24 16:59 TID.WITH.MEALS [facility] Protocol Insulin Glargine 7 units 05/01/23 [...] signed by Sushant Cordon DO> 05/02/23 1435 [facility] Work Phone: 1([phone]) 907-568010-22-2023 Progress note Author Ashwini Conrad [facility] May 02, 2023 2:12pm Note Date/Time May 02, 2023 2 :12pm [facility] [address] [place] [address] Orthopedic Progress Note Signed Patient: Manolo Vickers MR#: [id number] : 1935 Acct:[id number] Age/Sex: 88 / M Adm Date: 3 Loc: 4N Room: 5L1781-6 Type: ADM IN Attending Dr: Sushant Cordon [...] MPV Neut % (Auto) Lymph % (Auto) [place] % (Auto) Eos % (Auto) Baso % (Auto) Nucleat RBC Rel Count Neut # (Auto) Lymph # (Auto) [place] # (Auto) Eos # (Auto) Baso # [...] % (Auto) 71.9 Lymph % (Auto) 13.7 [place] % (Auto) 13.5 Eos % (Auto) 0.8 Baso % (Auto) 0.1 Nucleat RBC Rel Count 0.0 Neut # (Auto) 6.2 Lymph # (Auto) 1.2 [place] # (Auto) 1.2 H Eos # (Auto) [...] MPV Neut % (Auto) Lymph % (Auto) [place] % (Auto) Eos % (Auto) Baso % (Auto) Nucleat RBC Rel Count Neut # (Auto) Lymph # (Auto) [place] # (Auto) Eos # (Auto) Baso # (Auto) PHA Creatinine Clear Sodium Potassium Chloride Carbon Dioxide Anion Gap BUN Creatinine Est GFR (CKD-EPI) Glucose POC Glucose 376 POC Glucose Comment Calcium Triglycerides Cholesterol LDL Cholesterol, Calc VLDL Cholesterol HDL Cholesterol Cholesterol/HDL Ratio Assessment / Plan Assessment and plan (1) Two-vessel coronary artery disease: Code(s): I25.10 - Atherosclerotic heart disease of [place] coronary artery without angina pectoris Status: Acute [...] signed by Ashwini Conrad MD> 05/02/23 1412 [facility] Work Phone: [phone] 344-477710-22-2023 Progress note Author Harsh Martines [facility] May 02, 2023 10:49am Note Date/Time May 02, 2023 1 0:49am [facility] [address] [place] [address] Cardiology Progress Note Signed Patient: Manolo Vickers MR#: [id number] : 1935 Acct:[id number] Age/Sex: 88 / M Adm Date: 3 Loc: Room: [address] [place] [address] Type: ADM IN Attending Dr: Sushant Cordon [...] is to be determined by her primary spa manager and Dr. Davis Exam Physical Exam Vital [...] MPV Neut % (Auto) Lymph % (Auto) [place] % (Auto) Eos % (Auto) Baso % (Auto) Nucleat RBC Rel Count Neut # (Auto) Lymph # (Auto) [place] # (Auto) Eos # (Auto) Baso # [...] % (Auto) 71.9 Lymph % (Auto) 13.7 [place] % (Auto) 13.5 Eos % (Auto) 0.8 Baso % (Auto) 0.1 Nucleat RBC Rel Count 0.0 Neut # (Auto) 6.2 Lymph # (Auto) 1.2 [place] # (Auto) 1.2 H Eos # (Auto) [...] MPV Neut % (Auto) Lymph % (Auto) [place] % (Auto) Eos % (Auto) Baso % (Auto) Nucleat RBC Rel Count Neut # (Auto) Lymph # (Auto) [place] # (Auto) Eos # (Auto) Baso # [...] Code(s): I25.10 - Atherosclerotic heart disease of [place] coronary artery without angina pectoris Status: Acute [...] now, later coronary intervention Documented By: Harsh Martines MD, [facility] 3 1047 Signed By: <Electronically signed by MD JOAO Martines> 05/02/23 1049 [facility] Work Phone: 1(405) 184-190510-21-2023 Progress note Author Sushant Cordon [facility] May 01, 2023 3:13pm Note Date/Time May 01, 2023 3 :09pm [facility] [address] [place], [place] [id number] Hospitalist Progress Note Signed Patient: Manolo Vickers MR#: [id number] : 1935 Acct:[id number] Age/Sex: 88 / M Adm Date: 3 Loc: 4N Room: 4U5249-3 Type: ADM IN Attending Dr: Sushant Cordon [...] 81 mg 05/02/23 09:00 Aspirin 81 Mg Tablet.Dr SUNSHINE 05/01/24 08:59 DAILY TAVIA Atorvastatin Calcium 80 mg 05/01/23 21:00 Atorvastatin 80 Mg Tablet PO 04/30/24 20:59 QPM TAVIA Bisacodyl 10 mg 04/28/23 17:19 Bisacodyl 5 Mg Tablet.Dr PO 04/27/24 17:18 DAILY PRN Constipation Bisacodyl 10 mg 04/28/23 17:19 Bisacodyl 10 Mg Supp.Rect TX 04/27/24 17:18 DAILY PRN Constipation Calcium Carbonate [...] Insuln.Pen SUBCUT 04/27/24 21:59 Not Given TID.WM.HS [facility] Protocol Insulin Glargine 7 units 05/01/23 21:00 Insulin Glargine 300 Units/3 Ml Insuln.Pen SUBCUT 04/30/24 20:59 BID [facility] Lidocaine HCl 0.1 ml 04/29/23 01:31 [...] signed by Sushant Cordon DO> 05/01/23 1513 [facility] Work Phone: [phone] 918-358510-21-2023 Progress note Author Harsh Martines [facility] May 01, 2023 12:24pm Note Date/Time May 01, 2023 1 2:21pm [facility] [address] [place] [address] Cardiology Progress Note Signed Patient: Manolo Vickers MR#: [id number] : 1935 Acct:[id number] Age/Sex: 88 / M Adm Date: 3 Loc: 4N Room: [address] [place] [address] Type: ADM IN Attending Dr: Sushant Cordon [...] MPV Neut % (Auto) Lymph % (Auto) [place] % (Auto) Eos % (Auto) Baso % (Auto) Nucleat RBC Rel Count Neut # (Auto) Lymph # (Auto) [place] # (Auto) Eos # (Auto) Baso # [...] MPV Neut % (Auto) Lymph % (Auto) [place] % (Auto) Eos % (Auto) Baso % (Auto) Nucleat RBC Rel Count Neut # (Auto) Lymph # (Auto) [place] # (Auto) Eos # (Auto) Baso # [...] MPV Neut % (Auto) Lymph % (Auto) [place] % (Auto) Eos % (Auto) Baso % (Auto) Nucleat RBC Rel Count Neut # (Auto) Lymph # (Auto) [place] # (Auto) Eos # (Auto) Baso # [...] MPV Neut % (Auto) Lymph % (Auto) [place] % (Auto) Eos % (Auto) Baso % (Auto) Nucleat RBC Rel Count Neut # (Auto) Lymph # (Auto) [place] # (Auto) Eos # (Auto) Baso # [...] % (Auto) 68.2 Lymph % (Auto) 16.8 [place] % (Auto) 14.1 Eos % (Auto) 0.6 Baso % (Auto) 0.3 Nucleat RBC Rel Count 0.1 Neut # (Auto) 6.0 Lymph # (Auto) 1.5 [place] # (Auto) 1.2 H Eos # (Auto) [...] MPV Neut % (Auto) Lymph % (Auto) [place] % (Auto) Eos % (Auto) Baso % (Auto) Nucleat RBC Rel Count Neut # (Auto) Lymph # (Auto) [place] # (Auto) Eos # (Auto) Baso # [...] Code(s): I25.10 - Atherosclerotic heart disease of [place] coronary artery without angina pectoris Status: Acute [...] now, later coronary intervention Documented By: Harsh Martines MD, [facility] 3 1220 Signed By: <Electronically signed by MD JOAO Martines> 05/01/23 1220 [facility] Work Phone: [phone]) 794-226510-21-2023 Progress note Author Ashwini Conrad [facility] May 01, 2023 11:31am Note Date/Time May 01, 2023 1 1:31am [facility] [address] [place] [id number] Orthopedic Progress Note Signed Patient: Manolo Vickers MR#: [id number] : 1935 Acct:[id number] Age/Sex: 88 / M Adm Date: 3 Loc: Room: 7X3854-8 Type: ADM IN Attending Dr: Sushant Cordon [...] % (Auto) 79.2 Lymph % (Auto) 5.9 [place] % (Auto) 14.6 Eos % (Auto) 0.0 Baso % (Auto) 0.3 Nucleat RBC Rel Count 0.1 Neut # (Auto) 7.4 Lymph # (Auto) 0.6 L [place] # (Auto) 1.4 H Eos # (Auto) [...] MPV Neut % (Auto) Lymph % (Auto) [place] % (Auto) Eos % (Auto) Baso % (Auto) Nucleat RBC Rel Count Neut # (Auto) Lymph # (Auto) [place] # (Auto) Eos # (Auto) Baso # [...] MPV Neut % (Auto) Lymph % (Auto) [place] % (Auto) Eos % (Auto) Baso % (Auto) Nucleat RBC Rel Count Neut # (Auto) Lymph # (Auto) [place] # (Auto) Eos # (Auto) Baso # [...] MPV Neut % (Auto) Lymph % (Auto) [place] % (Auto) Eos % (Auto) Baso % (Auto) Nucleat RBC Rel Count Neut # (Auto) Lymph # (Auto) [place] # (Auto) Eos # (Auto) Baso # [...] MPV Neut % (Auto) Lymph % (Auto) [place] % (Auto) Eos % (Auto) Baso % (Auto) Nucleat RBC Rel Count Neut # (Auto) Lymph # (Auto) [place] # (Auto) Eos # (Auto) Baso # [...] % (Auto) 68.2 Lymph % (Auto) 16.8 [place] % (Auto) 14.1 Eos % (Auto) 0.6 Baso % (Auto) 0.3 Nucleat RBC Rel Count 0.1 Neut # (Auto) 6.0 Lymph # (Auto) 1.5 [place] # (Auto) 1.2 H Eos # (Auto) [...] MPV Neut % (Auto) Lymph % (Auto) [place] % (Auto) Eos % (Auto) Baso % (Auto) Nucleat RBC Rel Count Neut # (Auto) Lymph # (Auto) [place] # (Auto) Eos # (Auto) Baso # [...] Code(s): I25.10 - Atherosclerotic heart disease of [place] coronary artery without angina pectoris Status: Acute [...] signed by Ashwini Conrad MD> 05/01/23 1131 [facility] Work Phone: 1(507) 338-570010-20-2023 Progress note Author Sushant Cordon [facility] April 30, 2023 9:13pm Note Date/Time April 30, 2023 9 :13pm [facility] [address] [place] [address] Hospitalist Progress Note Signed Patient: Manolo Vickers MR#: [id number] : 1935 Acct:[id number] Age/Sex: 88 / M Adm Date: 3 Loc: 4N Room: [id number] Type: ADM IN Attending Dr: Sushant Cordon [...] mg 04/28/23 17:19 Bisacodyl 10 Mg Supp.Rect TX 04/27/24 17:18 DAILY PRN Constipation Calcium Carbonate [...] Mg/0.4 Ml Syringe SUBCUT 04/30/24 09:59 DAILY@1000 [facility] Glucose 0 gm 04/28/23 17:14 04/30/23 [...] Lactated Ringers IV 04/29/24 16:44 Not Given .[id number] TAVIA Cefazolin Sodium 1 gm in 50 [...] 2108 Signed By: <Electronically signed by Sushant Cordon, > 04/30/232112 [facility] Work Phone: 1(925) 917-555510-20-2023 Hospital Discharge instructions Additional Instructions Rehab to [...] high armed straight-backed chair. -May use toilet horse rider on commode. -Continue to use walker or [...] OTHER -Any problems- Call the office at [phone] or return to Emergency Room. -If you are having excessive or persistent pain, swelling, fever (oral temp >101), yellow-green foul smelling drainage or bleeding from incision, excessive redness of incision, nausea, vomiting, or any other problems, you should first call your surgeon at [phone] for advice. If you are unable to contact your surgeon, seek help from a hospital emergency room. FOLLOW UP -Call my office the first business day after discharge and ask for assistance with post-discharge plans, and appointments.[facility] Work Phone: 1(630) 498-332310-20-2023 Progress note Author Anat Perez [facility] April 30, 2023 10:32am Note Date/Time April 30, 2023 1 0:32am [facility] [address] [place], [place] [id number] Cardiology Progress Note Signed Patient: Manolo Vickers MR#: [id number] : 1935 Acct:[id number] Age/Sex: 88 / M Adm Date: 3 Loc: 4N Room: [address] [place] [address] Type: ADM IN Attending Dr: Sushant Cordon [...] events overnight. Denies chest pain or dyspnea. [facility] scheduled for this AM (findings as [...] MPV Neut % (Auto) Lymph % (Auto) [place] % (Auto) Eos % (Auto) Baso % (Auto) Nucleat RBC Rel Count Neut # (Auto) Lymph # (Auto) [place] # (Auto) Eos # (Auto) Baso # [...] MPV Neut % (Auto) Lymph % (Auto) [place] % (Auto) Eos % (Auto) Baso % (Auto) Nucleat RBC Rel Count Neut # (Auto) Lymph # (Auto) [place] # (Auto) Eos # (Auto) Baso # [...] % (Auto) 60.6 Lymph % (Auto) 22.0 [place] % (Auto) 16.4 Eos % (Auto) 0.6 Baso % (Auto) 0.4 Nucleat RBC Rel Count 0.1 Neut # (Auto) 5.4 Lymph # (Auto) 2.0 [place] # (Auto) 1.5 H Eos # (Auto) [...] MPV Neut % (Auto) Lymph % (Auto) [place] % (Auto) Eos % (Auto) Baso % (Auto) Nucleat RBC Rel Count Neut # (Auto) Lymph # (Auto) [place] # (Auto) Eos # (Auto) Baso # [...] MPV Neut % (Auto) Lymph % (Auto) [place] % (Auto) Eos % (Auto) Baso % (Auto) Nucleat RBC Rel Count Neut # (Auto) Lymph # (Auto) [place] # (Auto) Eos # (Auto) Baso # [...] Dizziness/syncope due to recurrent hypoglycemia Recommendations: - [facility] this am is significant for two-vessel coronary artery disease- 100% prox LAD occlusion; 80% D1; LCx has 50% prox stenosis with 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 - Discussed with superintendent generating plant- Dr Davis regarding timing of intervention- given that pt did not have [place] on presentation and was very functional prior [...] signed by Anat Perez MD> 04/30/23 1032 [facility] Work Phone: [phone] 397-499710-20-2023 Procedure [facility]10-19-2023 Progress note Author Sushant Cordon [facility] April 29, 2023 6:28pm Note Date/Time April 29, 2023 6 :28pm [facility] [address] [place] [address] Hospitalist Progress Note Signed Patient: Manolo Vickers MR#: [id number] : 1935 Acct:[id number] Age/Sex: 88 / M Adm Date: 3 Loc: Room: [address] [place] [address] Type: ADM IN Attending Dr: Sushant Cordon [...] mg 04/28/23 17:19 Bisacodyl 10 Mg Supp.Rect TX 04/27/24 17:18 DAILY PRN Constipation Calcium Carbonate [...] Dextrose-Lactated Ringers IV 04/27/24 17:14 125 mls/hr .[id number] TAVIA Administration Lactated Ringer's 1,000 mls @ [...] Cap.Er.24h PO 04/28/24 08:59 Not Given DAILY [facility] A&P - Hospitalist Assessment/Plan (1) Closed intertrochanteric [...] <Electronically signed by Sushant Cordon DO> 04/29/231827 [facility] Work Phone: 1(768) 593-727910-19-2023 Consult note Author Anat Perez [facility] April 29, 2023 5:34pm Note Date/Time April 29, 2023 5 :07pm [facility] [address] [place] [address] Cardiology Consult Note Signed Patient: Manolo Vickers MR#: [id number] : 1935 Acct:[id number] Age/Sex: 88 / M Adm Date: 3 Loc: 4N Room: [id number] Type: ADM IN Attending Dr: Sushant Cordon [...] noted below or in HPI [facility] Medical History (Updated 04/29/23 @ 17:34 [...] unit subcut HS 04/28/23 [History Confirmed 04/28/23] ymirdj-strengkw-anqlwsi 24,000-76,000-120,000 unit capsule,delayed rel (Creon) 2cap PO [...] x10E3/uL Lymph # (Auto) 2.0 (1.00-4.8) x10E3/uL [place] # (Auto) 1.1 H (0.0-0.8) x10E3/uL Eos [...] ,000 ml @ 125 mls/hr IV .Q8H [facility] Rx#:[id number] Oral 0 / 0 0 / 0 [...] disease) prior to surgery. -Will plan for [facility] tomorrow for further evaluation/risk stratification. NPO past midnight. Documented By: Anat Perez MD 04/29/231703 Signed By: <Electronically signed by Anat Perez MD> 04/29/231733 [facility] Work Phone: 1(638) 872-664110-18-2023 Consult note Author Ashwini Conrad [facility] April 28, 2023 6:47pm Note Date/Time April 28, 2023 6 :43pm [facility] [address] [place] [address] Orthopedic Consult Note Signed Patient: Manolo Vickers MR#: [id number] : 1935 Acct:[id number] Age/Sex: 88 / M Adm Date: 10/18/2 3 Loc: 4N Room: [id number] Type: ADM IN Attending Dr: Sushant Cordon [...] noted below or in HPI [facility] Medical History (Updated 04/28/23 @ 17:35 [...] unit subcut HS 04/28/23 [History Confirmed 04/28/23] qvngtf-hdcmbulr-szfytcb 24,000-76,000-120,000 unit capsule,delayed rel (Creon) 2cap PO [...] Appearance Clear, Urine pH 6.5, Ur Specific [place] 1.009, Urine Protein Negative, Urine Glucose (UA) [...] % (Auto) 75.0, Lymph % (Auto) 14.8, [place] % (Auto) 9.3, Eos % (Auto) 0.5, Baso % (Auto) 0.4, Nucleat RBC Rel Count 0.1, Neut # (Auto) 7.3, Lymph # (Auto) 1.4, [place] # (Auto) 0.9 H, Eos # (Auto) 0.0, Baso # (Auto) 0.0, Monocyte Dist Width 18.61 H & H 04/28/23 Range/Units 13:20 Hgb 11.5 L (13.0-17.0) g/dL Hct 34.8 L (38.8-50.0) % Coagulation 04/28/23 Range/Units 13:20 INR 1.0 All other labs are normal. Imaging & Diagnostic Results Imaging/Diagnostics: XRAY ([facility] 04/28/2023) Right FEMUR/RIGHT HIP/PELVIS: AP of [...] By: <Electronically signed by Ashwini Conrad MD> [id number] [facility] Work Phone: 1(953) 172-768210-18-2023 History and physical note Author Sushant Cordon [facility] April 28, 2023 5:40pm Note Date/Time April 28, 2023 5 :40pm [facility] [address] [place] [address] Hospitalist H&P Signed Patient: Manolo Vickers MR#: [id number] : 1935 Acct:[id number] Age/Sex: 88 / M Adm Date: 3 Loc: 4 Room: [address] [place] [address] Type: ADM IN Attending Dr: Sushant Cordon [...] 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 Otherwise his past medical history seems to include prostate hypertrophy. Social history: He does smoke a cigar daily after dinner. In the past he smoked0.25 of a pack per day of cigarettes. He does drink wine daily with dinner. Heis mainly retired from [employer] here in [place]. 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 Family history: A sister of an unspecified cancer. Another sibling ofwhat sounds like acute leukemia. Review of Systems Review of Systems Review of systems: 10 systems are reviewed and are negative except as mentioned elsewhere in the documentation. [facility] Medical History (Updated 04/28/23 @ 17:35 [...] unit subcut HS 04/28/23 [History Confirmed 04/28/23] rfucva-xqadaazw-uivgpof 24,000-76,000-120,000 unit capsule,delayed rel (Creon) 2cap PO [...] % (Auto) 14.8 % (.) 04/28/23 13:20 [place] % (Auto) 9.3 % (.) 04/28/23 13:20 Eos % (Auto) 0.5 % (.) 04/28/23 13:20 Baso % (Auto) 0.4 % (.) 04/28/23 13:20 Nucleat RBC Rel Count 0.1 /100 WBC (0-0.5) 04/28/23 13:20 Neut # (Auto) 7.3 x10E3/uL (1.8-7.7) 04/28/23 13:20 Lymph # (Auto) 1.4 x10E3/uL (1.00-4.8) 04/28/23 13:20 [place] # (Auto) 0.9 x10E3/uL (0.0-0.8) H 04/28/23 [...] pH 6.5 (5.0-9.0) 04/28/23 15:00 Ur Specific [place] 1.009 (1.001-1.030) 04/28/23 15:00 Urine Protein Negative [...] did order an echocardiogram but the echocardiogram system support technician has likely gone home for the [...] signed by Sushant Cordon DO> 04/28/23 1740 [facility] Work Phone: 1(123) 940-600210-01-2023 Chief complaint+Reason for visit Narrative * Chief [...] pylori ulcer Helicobacter pylori (H. pylori) Hypertension [id number] Stomach ulcer [facility] Work Phone: 1(349) 354-571306-29-2022 History of Present illness Narrative* Courtney Singh - 01/07/2022 12:25 PM EDT CLINICAL PHARMACY NOTE: MEDS TO BEDS Total # of Prescriptions Filled: 3 The following medications were delivered to the patient: Sucralfate susp Amlodipine Pantoprazole Additional Documentation: Pharmacy dispensed all we had of the Sucralfate susp- will transfer the rest to the [facility] in [place], [place] $8.61 collected via [employer] * Jose Roberto Peñaloza MD - 01/06/2022 8:56 AM EDT Images from the original note were not included. PROGRESS NOTE PATIENT NAME: Manolo Vickers DATE: 01/06/2022 SURGEON: Dr Conn PRIMARY [...] IVF NS UO 0.3 cc/kg/hr Stool x2 JEFF drain w/ 300 cc home pump insulin PT/OT SUBJECTIVE Manolo Vickers seen and examined at bedside. resting [...] clean dry and intact withglue in place, JEFF drain with minimal serous drainage MUSCULOSKELETAL: full [...] and directed the medical decision making with Resident/ELIANE afterthe physical/radiologic exam and laboratory values were reviewed and confirmed. UGI ok, slowly advance diet. Jose Roberto Peñaloza MD * Tj Kate, DO - 01/06/2022 7:30 AM EDT Bariatric Surgery: Daily Progress Note PATIENT NAME: Manolo Vickers TODAY'S DATE: 01/06/2022, 7:30 AM CC: [...] wheezing. Abdomen: Soft, mildly tender to palpation, JEFF drain in RUQ w/ serous output, incisions [...] Bariatric Surgery: Daily Progress Note PATIENT NAME: Manolo Vickers TODAY'S DATE: 01/05/2022, 7:15 AM CC: [...] wheezing. Abdomen: Soft, mildly tender to palpation, EJFF drain in RUQ w/ serous output, incisions [...] were not included. PROGRESS NOTE PATIENT NAME: Manolo Vickers DATE: 01/04/2022 SURGEON: Dr Conn PRIMARY [...] 10. home pump insulin 11. PT/OT SUBJECTIVE Manolo Vickers seen and examined at bedside. AF, [...] clean dry and intact withglue in place, JEFF drain with minimal serous drainage MUSCULOSKELETAL: full [...] and directed the medical decision making with Resident/ELIANE afterthe physical/radiologic exam and laboratory values were reviewed and confirmed. UGI in am. Jose Roberto Peñaloza MD * Mercedes Davis, DO - 01/04/2022 7:29 AM EDT Bariatric Surgery: Daily Progress Note PATIENT NAME: Manolo Vickers TODAY'S DATE: 01/04/2022, 7:29 AM CC: feeling better SUBJECTIVE: Pt seen and examined at bedside. Vital signs are normal and pt reports his pain is well controlled.JEFF drain had 85 out overnight. Denies passing [...] wheezing. Abdomen: Soft, mildly tender to palpation, JEFF drain in RUQ, incisions clean, dry and [...] 01/03/2022 3:25 PM EDT Occupational Therapy Facility/Department: [address] [facility]ational Therapy Initial Assessment Name: Manolo Vickers : 1935 Date of Service: 01/03/2022 Chief Complaint Patient presents with Abdominal Pain ulcer Discharge Recommendations: Patient would benefit from continued therapy after discharge OT Equipment Recommendations Equipment Needed: Yes Mobility Devices: ADL Assistive Devices ADL Assistive Devices: Diagnostic Assistant;Long-handled Sponge;Long-handled Shoe Horn;Sock- Aid Hard;Grab Bars -shower [...] Ambulation Assistance: Independent Transfer Assistance: Independent Active Toll Settlement Clerk: Yes Mode of Transportation: [facility] Occupation: Retired Type of Occupation: Reports he has retired 4-5 times. Works on [employer] sometimes now debo wants. [employer]. Use to work for [employer]. Leisure & Hobbies: [employer] Additional Comments: 3-4 weeks post open heart [...] Daily Activity Raw Score: 19 (01/03/22 152) AM-PAC Inpatient ADL T-Scale Score : 40.22 (01/03/22 152) ADL Inpatient CMS 0-100% Score: 42.8 (01/03/22 1525) ADL Inpatient CMS G-Code Modifier : CK (01/03/221524) Goals Short [...] 01/03/2022 12:40 PM EDT Physical Therapy Facility/Department: [address] [facility] Physical Therapy Initial Assessment Name: Manolo Vickers : 1935 Date of Service: 01/03/2022 [...] Ambulation Assistance: Independent Transfer Assistance: Independent Active Toll Settlement Clerk: Yes Mode of Transportation: SUV Occupation: Retired Type of Occupation: Reports he has retired 4-5 times. 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 dynamic activities AM-PAC Score [facility] Inpatient Mobility Raw Score : 18 (01/03/22 1239) AM-PAC Inpatient T-Scale Score : 43.63 (01/03/22 1239) Mobility Inpatient CMS 0-100% Score: 46.58 (01/03/22 1239) Mobility Inpatient [facility] G-Code Modifier : CK (01/03/22 1239) Goals Short Term Goals Time Frame for [...] Bariatric Surgery: Daily Progress Note PATIENT NAME: Manolo Vickers TODAY'S DATE: 01/03/2022, 8:06 AM CC: feeling better SUBJECTIVE: Pt seen and examined at bedside. Vital signs are normal and pt reports his pain is well controlled.JEFF drain had 210 out overnight. Denies passing [...] wheezing. Abdomen: Soft, mildly tender to palpation, JEFF drain in RUQ, incisions clean, dry and [...] were not included. PROGRESS NOTE PATIENT NAME: Manolo Vickers DATE: 01/03/2022 SURGEON: Dr Conn PRIMARY [...] vs transition to sliding scalecoverage PT/OT SUBJECTIVE Manolo Vickers seen and examined at bedside. Vital signs stable. Afebrile. Pain is controlled. Urineoutput adequate 0.9 cc per cake per hour. JEFF drain with 210 cc of serous output [...] clean dry and intact withglue in place, JEFF drain with minimal serous drainage MUSCULOSKELETAL: full range of motion noted SKIN: normal coloration and turgor I/O last 3 completed shifts: In: 1956.5 [I.V.:1757.1; IV Piggyback:200.5] Out: 935 [Urine:700; Drains:210; Blood:25] Drain/tube output: In: 7.5 [I.V.:1757.1] Out: 935 [Urine:700; Drains:210] LAB: CBC: Recent Labs 01/02/22185601/03/22 06 WBC 20.5* 22.1* HGB 12.9* 12.2* HCT 38.9* 37.4* MCV 81.2* 82.4* PLT 324 292 BMP: Recent Labs 01/02/22185601/03/22 0155 01/03/22 0627 NA 130* 136 138 K 4.1 4.6 4.5 CL 96* 105 104 CO2 25 21 BUN 19 18 21 CREATININE 0.81 0.75 0.84 GLUCOSE 452* 81 176* COAGS: Recent Labs 01/02/22 1857 PROT 6.4 INR 1.2 Breana Johnson MD 01/03/22, 7:51 AM Attestation signed by Jose Roberto Peñaloza MD I personally evaluated the patient and directed the medical decision making with Resident/ELIANE afterthe physical/radiologic exam and laboratory values were reviewed and confirmed. Feeling better, to bring in insulin pump. Jose Roberto Peñaloza MD * Queta Geiger RN - 01/03/2022 12:19 AM EDT Assessment forms from [facility] note that pt stated he has bed bugs at home and although they have treated the house, they have not been able to get rid of them. Pt did not have any belongings transferred with him from the OR. [facility] Work Phone: chief complaint+Reason for visit Narrative* Chief Complaint bp check I25.10 E61.1,K92.2 2 weeks bp 6 weeks evaluation for ICD evaluation for ICD HFC BP WITH ORTHO Cardiomyopathy Reason for Visit Iron deficiency Ischemic cardiomyopathy Ischemic cardiomyopathy Ischemic cardiomyopathy Acute GI bleeding Ischemic cardiomyopathy [id number] Sinus bradycardia H pylori ulcer Iron deficiency Ischemic cardiomyopathy [id number] Ischemic cardiomyopathy [facility] Work Phone: Consult note Author Tru Briceno [facility] May 03, 2023 3:17pm Note Date/Time May 03, 2023 2 :59pm [facility] [address] [place] [address] Physiatry (Rehab) Consult Note Signed Patient: Manolo Vickers MR#: [id number] : 1935 Acct:[id number] Age/Sex: 88 / M Adm Date: 3 Loc: 4N Room: [address] [place] [address] Type: ADM IN Attending Dr: Humberto Diaz MD Copies to: MD Humberto Mendieta MD Robert J Vaschak, DO~ Etiologic Dx/Impairment Group Narrative Narrative: 02.19 HPI Consult Date: 05/03/23 Requesting Physician: Humberto Diza MD Primary Care Provider: Marie Castro DO [...] noted below or in HPI [facility] Medical History BPH (benign prostatic hyperplasia) [...] unit subcut HS 04/28/23 [History Confirmed 04/28/23] xzefya-ipitucnv-jqlfirz 24,000-76,000-120,000 unit capsule,delayed rel (Creon) 2cap PO [...] bisacodyl 10 mg rectal suppository 10 mg TX DAILY PRN Constipation #0 ea 05/03/23 [Rx] [...] Laboratory Results - last 24 hr 05/02/23 05/02/2305/03/23 16:49 20:39 05:14 POC Glucose 427 H* [...] Code(s): I25.10 - Atherosclerotic heart disease of [place] coronary artery without angina pectoris Status: Acute [...] at least 3 times weekly encounters with petroleum supply specialist for medical management and for plan of care review / changes. Plan: I completed a substantive portion of this encounter, the medical decision making portion of this note in its entirety, including Allied health note review, nursing note review, oncology consultant note review, discussion with nursing and case management, and more than 50% of my time was spent on counseling and coordination of care, time spent 65 minutes Patient was personally seen by me, Dr. Briceno, on the day of encounter, reviewed the history and the relevant portions of the chart, including current orders, allied health and oncology consultant notes, labs/imaging and performed smyth elements of exam and I formulated the plan of care and facilitated the medical decision making. Documented By: Tru Briceno MD 05/03/23 6167 Signed By: <Electronically signed by Tru Briceno MD> 05/03/23 3945 [facility] Work Phone: Consult note Author Chuck Velasco [facility] Note Date/Time July 17, 2024 4: 52pm [facility] [address] [place] [address] Cardiology Consult Note Signed Patient: Manolo Vickers MR#: [id number] : 1935 Acct:[id number] Age/Sex: 89 / M Adm Date: 5 Loc: Room: [address] [place] [address] Type: ADM INOo Attending Dr: Lisa Hidalgo MD Copies to: MD Lisa Varner MD Robert J Vaschak,DO~ Cardiology HPI History of Present Illness Consult Date: 07/17/24 Reason for Consult: Chest pain HPI: Mr. Vickers is a 89 year old male with a past medical history below who presents to the hospital for chest pain. Pain was located in the lower chest wall. It wasworse on deep inspiration. It was unusual for him and lasted all day long. He did have an upper respiratory infection and has been coughing a lot. Workup in the hospital shows marginally elevated troponins of 32--29. His chest x-ray is completely normal. CTA chest was negative for PE, but does not show any pericardial effusion. There are mildly increased interstitial markings on the CTbut it is not suggestive of any significant CHF. Review of Systems Review of Systems All other systems reviewed & are negative unless noted below or in HPI [facility] Medical History Type 1 diabetes mellitus CAD (coronary artery disease) Former smoker BPH (benign prostatic hyperplasia) Urinary frequency Cardiomyopathy wearing external defib Coronary artery disease involving [place] coronary artery of [place] heart withoutangina pectoris GI bleeding Dupuytren's contracture of right hand Carpal tunnel syndrome of left wrist Cervical spine fracture Fracture of cervical spinous process Stomach ulcer previous rupture with repair. Melena Anxiety and depression Hypertension Protein-calorie malnutrition, mild BPH (benign prostatic hyperplasia) Surgical History AICD (automatic cardioverter/defibrillator) present History of bilateral cataract extraction History of appendectomy History of cardiac catheterization S/P PTCA (percutaneous transluminal coronary angioplasty) History of tonsillectomy History of resection of pancreas due to cysts of pancreas and weight loss History of back surgery 1985 H/O heart artery stent History of repair of hip fracture R side with 3 nails in. H/O splenectomy Family History Brother Cancer Son Sarcoma Mother No problems noted. Father No problems noted. Sister Leukemia Social History Smoking Status: Former smoker Tobacco Type: cigarettes Substance Use Type: None Substance Abuse Comment: Pt states he drinks 1 glass of wine every night Meds Medications and Allergies Allergies No Known Allergies Allergy (Verified 07/16/24 11:43) Home Medications aspirin 81 mg tablet,delayed release 81 mg PO DAILY 30 days #30 tabs 05/07/23 [Rx Confirmed 07/16/24] wotpde-iayoyveg-ptqwisq 24,000-76,000-120,000 unit capsule,delayed rel (Creon) 2cap PO TID.WITH.MEALS 30 days #120 caps 05/07/23 [Rx Confirmed 07/16/24] nitroglycerin 0.4 mg sublingual tablet 0.4 mg sublingual Q5M PRN Chest Pain 30 days #30 tabs 05/07/23 [Rx Confirmed 07/16/24] acetaminophen 500 mg tablet 500 mg PO Q6HR PRN pain 02/20/24 [History Confirmed 06/16/24] insulin aspart U-100 100 unit/mL (3 mL) subcutaneous pen (Novolog FlexPen U-100 Insulin aspart) See Protocol subcut TID.WM.HS #0 mL 09/03/23 [Rx Confirmed 07/16/24] blood sugar diagnostic #120 ea 09/05/23 [Rx Confirmed 07/16/24] lancets #120 ea 09/05/23 [Rx Confirmed 07/16/24] pen needle, diabetic 32 gauge x 5/32 (BD Ultra-Fine Marichuy Pen Needle) #100 ea 09/05/23 [Rx Confirmed 07/16/24] cholecalciferol (vitamin D3) 100 mcg PO DAILY 10/26/23 [History Confirmed 07/16/24] loratadine 10 mg tablet (Claritin) 1 tab PO DAILY 10/26/23 [History Confirmed 07/16/24] lutein 6 mg capsule 6 mg PO DAILY 10/26/23 [History Confirmed 07/16/24] multivitamin with minerals-folic acid 12 mcg chewable tablet (Centrum Adults) 1 tab PO DAILY 10/26/23 [History Confirmed 07/16/24] jcaugy-rfawmfjs-dlekhks 24,000-76,000-120,000 unit capsule,delayed rel (Creon) 1cap PO TID PRN gastrointestinal spasms or cramping 02/05/24 [History Confirmed 07/16/24] paroxetine HCl 40 mg tablet 40 mg PO QAM 02/15/24 [History Confirmed 07/16/24] atorvastatin 80 mg tablet 80 mg PO QHS 90 days #90 tabs 02/28/24 [Rx Confirmed 07/16/24] lisinopril 2.5 mg tablet 2.5 mg PO QAM 05/16/24 [History Confirmed 07/16/24] omeprazole 20 mg capsule,delayed release 20 mg PO BID 05/16/24 [History Confirmed 07/16/24] tamsulosin 0.4 mg capsule 0.4 mg PO QPM 05/16/24 [History Confirmed 07/16/24] metoprolol succinate 25 mg tablet,extended release 24 hr 12.5 mg PO BID 07/16/24[History Confirmed 07/16/24] spironolactone 25 mg tablet 25 mg PO DAILY 07/16/24 [History Confirmed 07/16/24] furosemide 20 mg tablet 20 mg PO DAILY.8A #30 tabs 07/17/24 [Rx] insulin glargine 100 unit/mL (3 mL) subcutaneous pen (Lantus Solostar U-100 Insulin) 5 unit (0.05 mL) subcut QHS 10 days #0.5 mL 07/17/24 [Rx] Exam Physical Exam Vital Signs: Temp Pulse Resp BP Pulse Ox O2 Del Method 97.1 F L 60 12 127/70 95 Room Air 07/17/24 12:03 07/17/24 12:03 07/17/24 12:03 07/17/24 13:57 07/17/24 12:03 07/17/24 08:12 Narrative: Physical Exam: General: NAD, A&Ox3, Cooperative Head, Eyes: NC/AT, EOMI Lungs: Good air entry; No crackles/rhonchi/wheezes Heart: S1S2 normal, Regular rhythm, No murmurs/rubs/gallop, No JVD Extremities: No edema. Abdomen: Soft, non-tender, non-distended. Neuro: CN grossly intact, No focal deficits. Psych: Normal mood & affect. Results - Cardiology Labs 07/17/24 05:21 07/17/24 05:21 Lab results: Cardiac Enzymes 07/17/24 Range/Units 05:21 AST 20 (13-39) U/L CBC 07/17/24 Range/Units 05:21 RBC 4.73 (3.90-5.60) x10E6/uL Hgb 12.4 L (13.0-17.0) g/dL Hct 37.8 L (38.8-50.0) % Plt Count 229 (150-450) x10E3/uL Neut # (Auto) N/A Lymph # (Auto) N/A [place] # (Auto) N/A Eos # (Auto) N/A Baso # (Auto) N/A Comprehensive Metabolic Panel 07/17/24 Range/Units 05:21 Sodium 131 L (136-145) mmol/L Potassium 4.8 (3.5-5.1) mmol/L Chloride 96 L (98-107) mmol/L Carbon Dioxide 28.2 (21.0-31.0) mmol/L BUN 20 (7-25) mg/dL Creatinine 1.03 (0.70-1.30) mg/dL Glucose 443 H D (70-100) mg/dL Calcium 8.8 (8.6-10.3) mg/dL AST 20 (13-39) U/L ALT 18 (7-52) U/L Alkaline Phosphatase 136 H (34-104) U/L Total Protein 6.6 (6.4-8.9) gm/dL Albumin 3.6 (3.5-5.7) gm/dL Intake and Output 07/17/24 07/17/24 07/17/24 06:59 14:59 22:59 Output Total 700 / 700 Balance -700 / -700 Output: Urine 700 / 700 Other: Weight 63.5 kg Date of Last Bowel Movement 07/16/24 07/16/24 Lab 07/16/24 07/17/24 12:30 05:21 PT 14.3 H 14.5 H INR 1.2 1.3 APTT 30.6 A&P - Cardiology (1) COPD with acute exacerbation: Code(s): J44.1 - Chronic obstructive pulmonary disease with (acute) exacerbation (2) Pleuritic chest pain: Code(s): R07.81 - Pleurodynia (3) CAD (coronary artery disease): Code(s): I25.10 - Atherosclerotic heart disease of [place] coronary artery without angina pectoris (4) S/P ICD (internal cardiac defibrillator) procedure: Code(s): Z95.810 - Presence of automatic (implantable) cardiac defibrillator (5) Ischemic cardiomyopathy: Code(s): I25.5 - Ischemic cardiomyopathy Plan # Chest pain on admission - is musculoskeletal and pleuritic likely due to his URI and cough. # CAD s/p PCI in Jul 2023. 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 Current smoker. [facility] 04/30/23 - Two-vessel coronary artery disease- 100% prox LAD occlusion; 80% D1; LCx has 50% prox stenosis with 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 Echo 04/28/23 - EF 40-45%, mild LVH, trace MR and TR. [facility] 07/16/22 - Successful PCI ostial/proximal LAD-diagonal branch; true CHIEF PHYSICAL THERAPIST proximal/mid LAD (attempted wiring with balloon). ECHO in January [address] [facility] ([place], [place]): EF 30-35% ECHO 03/09/2024: ECHO which showed persistently low EF 25-30% with anteroseptal and apical wall akinesis and moderate MR. -His chest x-ray is normal. CTA chest was negative for PE, but does not show any significant pericardial effusion. There are mildly increased interstitial markings on the CT but is not impressive for CHF. -He received one dose of diuretic in the ER. Clinically he is completely euvolemic and has absolutely no peripheral edema, crackles or JVD. Will add a daily oral diuretic to his regimen. Script for Lasix 20mg daily sent to his pharmacy. -ICD site is normal. -Continue current regimen for CAD and HF. -Will see as needed. Please call with any questions. Follow up with [facility] Cardiology as scheduled. Documented By: Chuck Velasco MD 01/03 1637 Signed By: <Electronically signed by Chuck Velasco MD> 07/17/24 1652 [facility] Work Phone: Discharge summary Author Humberto Diaz [facility] May 03, 2023 2:54pm Note Date/Time May 03, 2023 2 :39pm [facility] [address] [place] [address] Discharge Summary Signed Patient: Manolo Vickers MR#: [id number] : 1935 Acct:[id number] Age/Sex: 88 / M Adm Date: 3 Loc: Room: 3X2259-[address]: Humberto Diaz MD Copies to: [...] Actual Procedures p CL [facility] Vicente - Anat Perez MD Operation Date: 04/30/23 [...] Discharge Plan Discharge Plan Patient Disposition: Rehab [facility] Diet: Diabetic Additional Instructions: Rehab to [...] high armed straight-backed chair. -May use toilet horse rider on commode. -Continue to use walker or [...] OTHER -Any problems- Call the office at [phone] or return to Emergency Room. -If you are having excessive or persistent pain, swelling, fever (oral temp >101), yellow-green foul smelling drainage or bleeding from incision, excessive redness of incision, nausea, vomiting, or any other problems, you should first call your surgeon at [phone] for advice. If you are unable to [...] 0RF bisacodyl 10 mg Suppository 10 mg TX DAILY PRN (Reason: Constipation) Qty: 0 0RF [...] (call at discharge from Rehab to see Grill Chef for future ANGIOPLASTY PROCEDURE) Marie Castro DO [...] <Electronically signed by Humberto Diaz MD> 05/03/23 1454 [facility] Work Phone: [place] [address] Discharge Summary Signed Patient: Manolo Vickers MR#: [id number] : 1935 Acct:[id number] Age/Sex: 89 / M Adm Date: 5 Loc: Room: [address] [place] [address]: Lisa Hidalgo MD Copies to: MD Marie Knapp DO~ Providers Date of Discharge: 07/17/24 Discharging Provider: Lisa Hidalgo Primary Care Provider: Marie Castro Consults: 07/17/24 00:31 Consult to Occupational Therapy Routine Comment: Physician Instructions: Consult to OT for:: Evaluation and Treat Consult to Physical Therapy Routine Comment: Physician Instructions: Consult to PT for:: Evaluation and Treat 07/17/24 01:31 Consult to Cardiology Routine Comment: Consulting Provider: [facility] - Cardiology Reason For Exam: Pleuritic Chest Pain Has Provider Been Notified: Yes Date of Notification: 07/17/24 Time of Notification: 07:20 Discharge Diagnosis (1) COPD with acute exacerbation: (2) Pleuritic chest pain: (3) CAD (coronary artery disease): (4) S/P ICD (internal cardiac defibrillator) procedure: (5) Ischemic cardiomyopathy: Final Diagnosis Final Discharge Diagnosis: Chest pain Summary Hospital Course Hospital course: Mr. Vickers is an 89-year-old male with PMH of type 1 diabetes mellitus, CAD, BPH, ischemic cardiomyopathy status post ICD who presents to the emergency department with complaints of chest pain over the past 2 to 3 days. Patient notes that with deep inspiration he has significant discomfort in the left side of his chest. He has not experienced pain like this before. Pain is left- sidedand below where his ICD is placed. He does note that it is superficial and upondeep inspiration. Given that the symptoms persisted over the last few days he decided to come into the emergency department for further evaluation. He does note some associated dizziness with the chest pain, but no other major symptoms otherwise. In the emergency department, vital signs are largely within normal limits, though patient is moderately hypertensive. Lab work is noteworthy for elevated BNP of 2052, CPK 136, initial troponin 32 andrepeat troponin 29. Patient underwent CT imaging of the chest to rule out PE. There was no evidenceof pulmonary embolism, but there was cardiomegaly with small pericardial effusion as well as interstitial edema consistent with possible congestive heart failure. Patient was given Bumex x 1 dose, 2 DuoNeb treatments and Solu-Medrol. Case was discussed between myself and ED attending and patient was admitted to hospitalist service for further management. PT saw the patient recommended homeas disposition. Cardiology consulted, recommended to follow: C 04/30/23 - Two-vessel coronary artery disease- 100% prox LAD occlusion; 80% D1; LCx has 50% prox stenosis with 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 Echo 04/28/23 - EF 40-45%, mild LVH, trace MR and TR. [facility] 07/16/22 - Successful PCI ostial/proximal LAD-diagonal branch; true CHIEF PHYSICAL THERAPIST proximal/mid LAD (attempted wiring with balloon). ECHO in January [address] [facility] ([place], [place]): EF 30-35% ECHO 03/09/2024: ECHO which showed persistently low EF 25-30% with anteroseptal and apical wall akinesis and moderate MR. -His chest x-ray is normal. CTA chest was negative for PE, but does not show anysignificant pericardial effusion. There are mildly increased interstitial markings on the CT but is not impressive for CHF. -He received one dose of diuretic in the ER. Clinically he is completely euvolemic and has absolutely no peripheral edema, crackles or JVD. Will add a daily oral diuretic to his regimen. Script for Lasix 20mg daily sent to his pharmacy. -ICD site is normal. -Continue current regimen for CAD and HF. -Will see as needed. Please call with any questions. Follow up with [facility] Cardiology as scheduled. Patient was cleared by cardiology for discharge today. He is hemodynamically stable for discharge. He was very happy being discharged. Condition Condition at Discharge: Stable Status at Discharge Overall status at discharge: patient is back to baseline Time Spent with Patient Time spent providing/coordinating discharge services (# min): 55 Discharge Plan Discharge Plan Patient Disposition: Home Activity: Ambulate as Tolerated Diet: Diabetic Instructions: Know your Meds Prescriptions: New insulin glargine [Lantus Solostar U-100 Insulin] 100 unit/mL (3 mL) Insulin Pen 5 unit subcut QHS 10 Days Qty: 0.5 0RF furosemide 20 mg Tablet 20 mg PO DAILY.8A Qty: 30 1RF Continued atorvastatin 80 mg tablet 80 mg PO QHS 90 Days Qty: 90 1RF acetaminophen 500 mg Tablet 500 mg PO Q6HR PRN (Reason: pain) insulin aspart U-100 [Novolog FlexPen U-100 Insulin] 100 unit/mL (3 mL) Insulin Pen See Protocol subcut TID.WM.HS Qty: 0 0RF Protocol: Corrective Scale #2 (TDI 26-50 UNITS) Condition: Corrective Scale #2 (TDI 26-50 UNITS) Condition: Dose/Route: Instruction: Condition: Fingerstick Blood Glucose Dose/Route: Insulin Units Condition: 150-199 mg/dl Dose/Route: 2 unit Condition: 200-249 mg/dl Dose/Route: 3 unit Condition: 250-299 mg/dl Dose/Route: 5 unit Condition: 300-349 mg/dl Dose/Route: 7 unit Condition: 350-399 mg/dl Dose/Route: 8 unit Condition: greater than or = 400 mg/dl Dose/Route: 9 unit Instruction: CallProvider Protocol Text: *If the corrective scale dose has been administered within the past 4 hours, do not use corrective scale again unless approved by prescriber* Patient Comments: 10 units for breakfast 8 units for lunch 7 units for dinner (DME) blood sugar diagnostic Strip Qty: 120 3RF Rx Instructions: Fingerstick blood sugar ACHS (DME) lancets Misc Qty: 120 3RF Rx Instructions: Fingerstick blood sugar ACHS (DME) pen needle, diabetic [BD Ultra-Fine Marichuy Pen Needle] 32 gauge x 5/32 needle Qty: 100 3RF Rx Instructions: Sliding scale, carb coverage, long acting insulin lisinopril 2.5 mg tablet 2.5 mg PO QAM omeprazole 20 mg capsule,delayed release(DR/EC) 20 mg PO BID tamsulosin 0.4 mg Capsule 0.4 mg PO QPM aspirin 81 mg Tablet,Delayed Release (Dr/Ec) 81 mg PO DAILY 30 Days Qty: 30 0RF nitroglycerin 0.4 mg Tablet, Sublingual 0.4 mg sublingual Q5M PRN (Reason: Chest Pain) 30 Days Qty: 30 0RF Creon 24,000-76,000 -120,000 unit Capsule,Delayed Release(Dr/Ec) 2 cap PO TID.WITH.MEALS 30 Days Qty: 120 0RF Creon 24,000-76,000 -120,000 unit capsule,delayed release(DR/EC) 1 cap PO TID PRN (Reason: gastrointestinal spasms or cramping) Rx Instructions: administer one cap with snacks spironolactone 25 mg tablet 25 mg PO DAILY metoprolol succinate 25 mg tablet extended release 24 hr 12.5 mg PO BID paroxetine HCl 40 mg tablet 40 mg PO QAM loratadine [Claritin] 10 mg tablet 1 tab PO DAILY Rx Instructions: FreeTextSi tablet Orally Once a day; Note: Source Status: Taking; Provider: Houston Maradiaga ( ) cholecalciferol (vitamin D3) 125 mcg/0.5 mL (5K unit/0.5mL) drops 100 mcg PO DAILY lutein 6 mg capsule 6 mg PO DAILY Rx Instructions: give with meal/snack Centrum Adults 12 mcg tablet,chewable 1 tab PO DAILY Follow Up: Marie Castro DO [Primary Care Provider] - 07/20/24 1:00 pm (Post hospital appointment. Please call to reschedule if needed. This appointment is scheduled with his Nurse Practitioner.) Anat Perez MD [Active Staff] - 08/31/24 8:40 am Exam Physical Exam Vital Signs: Temp Pulse Resp BP Pulse Ox O2 Del Method 97.1 F L 60 12 127/70 95 Room Air 07/17/24 12:03 07/17/24 12:03 07/17/24 12:03 07/17/24 13:57 07/17/24 12:03 07/17/24 08:12 Documented By: Lisa Hidalgo MD 07/18/241899 Signed By: 07/18/241901 [facility]idal[facility] Note Date/Time July 18, 2024 7: 02pm [facility] [address] [place] [address] Discharge Summary Signed Patient: Manolo Vickers MR#: [id number] : 1935 Acct:[id number] Age/Sex: 89 / M Adm Date: 5 Loc: Room: [address] [place] [address]: Lisa Hidalgo MD Copies to: MD Marie Knapp DO~ Providers Date of Discharge: 07/17/24 Discharging Provider: Lisa Hidalgo Primary Care Provider: Marie Castro Consults: 07/17/24 00:31 Consult to Occupational Therapy Routine Comment: Physician Instructions: Consult to OT for:: Evaluation and Treat Consult to Physical Therapy Routine Comment: Physician Instructions: Consult to PT for:: Evaluation and Treat 07/17/24 01:31 Consult to Cardiology Routine Comment: Consulting Provider: [facility] - Cardiology Reason For Exam: Pleuritic Chest Pain Has Provider Been Notified: Yes Date of Notification: 07/17/24 Time of Notification: 07:20 Discharge Diagnosis (1) COPD with acute exacerbation: (2) Pleuritic chest pain: (3) CAD (coronary artery disease): (4) S/P ICD (internal cardiac defibrillator) procedure: (5) Ischemic cardiomyopathy: Final Diagnosis Final Discharge Diagnosis: Chest pain Summary Hospital Course Hospital course: Mr. Vickers is an 89-year-old male with PMH of type 1 diabetes mellitus, CAD, BPH, ischemic cardiomyopathy status post ICD who presents to the emergency department with complaints of chest pain over the past 2 to 3 days. Patient notes that with deep inspiration he has significant discomfort in the left side of his chest. He has not experienced pain like this before. Pain is left-sidedand below where his ICD is placed. He does note that it is superficial and upondeep inspiration. Given that the symptoms persisted over the last few days he decided to come into the emergency department for further evaluation. He does note some associated dizziness with the chest pain, but no other major symptoms otherwise. In the emergency department, vital signs are largely within normal limits, though patient is moderately hypertensive. Lab work is noteworthy for elevated BNP of 2052, CPK 136, initial troponin 32 and repeat troponin 29. Patient underwent CT imaging of the chest to rule out PE. There was no evidence of pulmonary embolism, but there was cardiomegaly with small pericardial effusion as well as interstitial edema consistent with possible congestive heart failure. Patient was given Bumex x 1 dose, 2 DuoNeb treatments and Solu-Medrol. Case was discussed between myself and ED attending and patient was admitted to hospitalist service for further management. PT saw the patient recommended homeas disposition. Cardiology consulted, recommended to follow: C 04/30/23 - Two-vessel coronary artery disease- 100% prox LAD occlusion; 80% D1; LCx has 50% prox stenosis with 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 Echo 04/28/23 - EF 40-45%, mild LVH, trace MR and TR. [facility] 07/16/22 - Successful PCI ostial/proximal LAD-diagonal branch; true CHIEF PHYSICAL THERAPIST proximal/mid LAD (attempted wiring with balloon). ECHO in January [address] [facility] ([place], [place]): EF 30-35% ECHO 03/09/2024: ECHO which showed persistently low EF 25-30% with anteroseptal and apical wall akinesis and moderate MR. -His chest x-ray is normal. CTA chest was negative for PE, but does not show anysignificant pericardial effusion. There are mildly increased interstitial markings on the CT but is not impressive for CHF. -He received one dose of diuretic in the ER. Clinically he is completely euvolemic and has absolutely no peripheral edema, crackles or JVD. Will add a daily oral diuretic to his regimen. Script for Lasix 20mg daily sent to his pharmacy. -ICD site is normal. -Continue current regimen for CAD and HF. -Will see as needed. Please call with any questions. Follow up with [facility] Cardiology as scheduled. Patient was cleared by cardiology for discharge today. He is hemodynamically stable for discharge. He was very happy being discharged. Condition Condition at Discharge: Stable Status at Discharge Overall status at discharge: patient is back to baseline Time Spent with Patient Time spent providing/coordinating discharge services (# min): 55 Discharge Plan Discharge Plan Patient Disposition: Home Activity: Ambulate as Tolerated Diet: Diabetic Instructions: Know your Meds Prescriptions: New insulin glargine [Lantus Solostar U-100 Insulin] 100 unit/mL (3 mL) Insulin Pen 5 unit subcut QHS 10 Days Qty: 0.5 0RF furosemide 20 mg Tablet 20 mg PO DAILY.8A Qty: 30 1RF Continued atorvastatin 80 mg tablet 80 mg PO QHS 90 Days Qty: 90 1RF acetaminophen 500 mg Tablet 500 mg PO Q6HR PRN (Reason: pain) insulin aspart U-100 [Novolog FlexPen U-100 Insulin] 100 unit/mL (3 mL) Insulin Pen See Protocol subcut TID.WM.HS Qty: 0 0RF Protocol: Corrective Scale #2 (TDI 26-50 UNITS) Condition: Corrective Scale #2 (TDI 26-50 UNITS) Condition: Dose/Route: Instruction: Condition: Fingerstick Blood Glucose Dose/Route: Insulin Units Condition: 150-199 mg/dl Dose/Route: 2 unit Condition: 200-249 mg/dl Dose/Route: 3 unit Condition: 250-299 mg/dl Dose/Route: 5 unit Condition: 300-349 mg/dl Dose/Route: 7 unit Condition: 350-399 mg/dl Dose/Route: 8 unit Condition: greater than or = 400 mg/dl Dose/Route: 9 unit Instruction: CallProvider Protocol Text: *If the corrective scale dose has been administered within the past 4 hours, do not use corrective scale again unless approved by prescriber* Patient Comments: 10 units for breakfast 8 units for lunch 7 units for dinner (DME) blood sugar diagnostic Strip Qty: 120 3RF Rx Instructions: Fingerstick blood sugar ACHS (DME) lancets Misc Qty: 120 3RF Rx Instructions: Fingerstick blood sugar ACHS (DME) pen needle, diabetic [BD Ultra-Fine Marichuy Pen Needle] 32 gauge x 5/32 needle Qty: 100 3RF Rx Instructions: Sliding scale, carb coverage, long acting insulin lisinopril 2.5 mg tablet 2.5 mg PO QAM omeprazole 20 mg capsule,delayed release(DR/EC) 20 mg PO BID tamsulosin 0.4 mg Capsule 0.4 mg PO QPM aspirin 81 mg Tablet,Delayed Release (Dr/Ec) 81 mg PO DAILY 30 Days Qty: 30 0RF nitroglycerin 0.4 mg Tablet, Sublingual 0.4 mg sublingual Q5M PRN (Reason: Chest Pain) 30 Days Qty: 30 0RF Creon 24,000-76,000 -120,000 unit Capsule,Delayed Release(Dr/Ec) 2 cap PO TID.WITH.MEALS 30 Days Qty: 120 0RF Creon 24,000-76,000 -120,000 unit capsule,delayed release(DR/EC) 1 cap PO TID PRN (Reason: gastrointestinal spasms or cramping) Rx Instructions: administer one cap with snacks spironolactone 25 mg tablet 25 mg PO DAILY metoprolol succinate 25 mg tablet extended release 24 hr 12.5 mg PO BID paroxetine HCl 40 mg tablet 40 mg PO QAM loratadine [Claritin] 10 mg tablet 1 tab PO DAILY Rx Instructions: FreeTextSi tablet Orally Once a day; Note: Source Status: Taking; Provider: Houston Maradiaga ( ) cholecalciferol (vitamin D3) 125 mcg/0.5 mL (5K unit/0.5mL) drops 100 mcg PO DAILY lutein 6 mg capsule 6 mg PO DAILY Rx Instructions: give with meal/snack Centrum Adults 12 mcg tablet,chewable 1 tab PO DAILY Follow Up: Marie Castro DO [Primary Care Provider] - 07/20/24 1:00 pm (Post hospital appointment. Please call to reschedule if needed. This appointment is scheduled with his Nurse Practitioner.) Anat Perez MD [Active Staff] - 08/31/24 8:40 am Exam Physical Exam Vital Signs: Temp Pulse Resp BP Pulse Ox O2 Del Method 97.1 F L 60 12 127/70 95 Room Air 07/17/24 12:03 07/17/24 12:03 07/17/24 12:03 07/17/24 13:57 07/17/24 12:03 07/17/24 08:12 Documented By: Lisa Hidalgo MD 07/18/241899 Signed By: <Electronically signed by Lisa Hidalgo MD> 07/18/24 190 [facility] Work Phone: Evaluation note* Diagnosis Perforated viscus- [...] of right hip acute Elevated troponin acute [facility] Work Phone: Evaluation note* Diagnosis Onset Date Resolution Status Abnormal EKG acute Closed intertrochanteric fracture of right hip acute Diabetes acute Elevated troponin acute Impaired mobility and activities of daily living acute Mild left ventricular systolic dysfunction (LVSD) acute Nonsustained monomorphic ventricular tachycardia acute Postoperative pain, acute, hip acute Two-vessel coronary artery disease acute [facility] Work Phone: Evaluation note* Diagnosis Onset Date [...] artery disease acute Uncontrolled diabetes mellitus acute [facility] Work Phone: Evaluation note* Diagnosis NSTEMI (non-ST elevated myocardial infarction) ([facility])- Primary Acute myocardial infarction, subendocardial infarction, episode of care unspecified Abnormal stress test Other nonspecific abnormal cardiovascular system function study ASHD (arteriosclerotic heart disease) Coronary atherosclerosis of unspecified type of vessel, [place] or graft Essential hypertension Unspecified essential hypertension Diabetes mellitus type II, non insulin dependent ([facility]) Type II or unspecified type diabetes mellitus without mention of complication, not stated as uncontrolled Closed fracture of right hip, initial encounter ([facility]) documented in this encounter [facility] Work Phone: Evaluation noteNo [email or web address] Other Evaluation note* Diagnosis Onset Date Resolution Status Diabetes acute CAD (coronary artery disease) acute Diabetes acute [facility] Work Phone: Evaluation note* Diagnosis Cardiomyopathy, ischemic- Primary Other specified forms of chronic ischemic heart disease ASHD (arteriosclerotic heart disease) Coronary atherosclerosis of unspecified type of vessel, [place] or graft BMI 20.0-20.9, adult Orthopnea documented in this encounter [facility] Work Phone: Evaluation noteNo assessment information available [facility] Work Phone: evaluation note* Diagnosis Onset Date Resolution Status Fracture of C5 vertebra, closed acute Vertebral fracture, closed a cute Barretts esophagus acute H pylori ulcer acute [facility] Work Phone: evaluation note* Diagnosis Onset Date Resolution Status Acute electrocardiogram changes acute Acute GI bleeding acute Elevated troponin acute GI bleeding acute [facility] Work Phone: evaluation note* Diagnosis Onset Date Resolution Status Acute electrocardiogram changes acute Acute GI bleeding acute CAD (coronary artery disease) acute [id number] acute Elevated troponin acute GI bleeding acute History of pancreatectomy ac [place] Hypertension acute S/P PTCA (percutaneous trans luminal coronary angioplasty) acute Type 1 diabetes mellitus acu te [facility] Work Phone: evaluation note* Diagnosis Onset Date Resolution Status Acute electrocardiogram changes resolved Acute GI bleeding resolved Elevated troponin resolved Ischemic cardiomyopathy acut e Acute GI bleeding resolved [facility] Work Phone: evaluation note* Diagnosis Onset Date Resolution Status Acute electrocardiogram changes resolved Acute GI bleeding resolved Elevated troponin resolved Ischemic cardiomyopathy acut e Acute GI bleeding resolved Iron deficiency acute Ischemic cardiomyopathy acut e [facility] Work Phone: evaluation note* Diagnosis Onset Date Resolution Status Acute electrocardiogram changes resolved Acute GI bleeding resolved Elevated troponin resolved Ischemic cardiomyopathy acut e Acute GI bleeding resolved Iron deficiency acute Ischemic cardiomyopathy acut e Ischemic cardiomyopathy acut e Ischemic cardiomyopathy acut e Acute GI bleeding resolved [facility] Work Phone: evaluation note* Diagnosis 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 (CMS/HCC) Pancreatic insufficiency (CMS/HCC)- Primary Other specified disease of pancreas Coronary arteriosclerosis (CMS/HCC) Coronary atherosclerosis of unspecified type of vessel, [place] or graft 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 (CMS/HCC) 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) H pylori ulcer Chronic ulcer of unspecified site [facility] Diagnosis 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 (CMS/HCC) Bronchitis- Primary Bronchitis, not specified as acute or chronic 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 (CMS/HCC) Generalized anxiety disorder (CMS/HCC) Generalized anxiety disorder Need for immunization against influenza Need for prophylactic vaccination and inoculation against influenza 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 H pylori ulcer Chronic ulcer of unspecified site 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) Insulin pump in place Insulin pump status Pancreatic insufficiency (CMS/HCC) Other specified disease of pancreas Duodenal ulcer Medicare annual wellness visit, subsequent ACP (advance care planning) Other specified counseling Bradycardia Other specified cardiac dysrhythmias Orthostatic hypotension Acute on chronic systolic congestive heart failure (CMS/HCC) documented in this encounter [facility]* Diagnosis 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 (CMS/HCC) ICD (implantable cardioverter-defibrillator) in place- Primary Hospital discharge follow-up Other follow-up examination 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 (CMS/HCC) Coronary atherosclerosis of unspecified type of vessel, [place] or graft Insulin pump in place Insulin pump status 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) Moderate pulmonary arterial systolic hypertension (CMS/HCC) Nonrheumatic mitral valve regurgitation Chronic systolic CHF (congestive heart failure), NYHA class 2 (CMS/HCC) documented in this encounter [facility]* Diagnosis 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 (CMS/HCC) Abdominal wall abscess- Primary Cellulitis and abscess of trunk documented in this encounter [facility]* Diagnosis 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, with long-term current use of insulin (HCC)- Primary 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) Insulin pump status [facility] 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 (CMS/HCC) Abscess of abdominal wall- Primary Cellulitis and abscess of trunk 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) Chronic systolic CHF (congestive heart failure), NYHA class 2 (CMS/HCC) Acquired total absence of pancreas documented in this encounter [facility]* Diagnosis 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 (CMS/HCC) Abdominal wall abscess- Primary Cellulitis and abscess of trunk documented in this encounter [facility]* Diagnosis 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 (CMS/HCC) Chronic systolic CHF (congestive heart failure), NYHA class 2 (CMS/HCC)- Primary Pancreatic insufficiency (CMS/HCC) Other specified disease of pancreas History of bleeding peptic ulcer Coronary arteriosclerosis (CMS/HCC) Coronary atherosclerosis of unspecified type of vessel, [place] or graft 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) Orthostatic hypotension Bronchitis Bronchitis, not specified as acute or chronic documented in this encounter [facility]* Diagnosis 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, with long-term current use of insulin (HCC)- Primary [facility] Diagnosis 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 (CMS/HCC) Abdominal wall abscess Cellulitis and abscess of trunk Acquired total absence of pancreas Insulin pump in place Insulin pump status Lower respiratory infection Other diseases of respiratory system, not elsewhere classified 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) Chronic systolic CHF (congestive heart failure), NYHA class 2 (CMS/HCC) Nonrheumatic mitral valve regurgitation Pancreatic insufficiency (CMS/HCC) Other specified disease of pancreas documented in this encounter [facility]* Diagnosis 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, with long-term current use of insulin (HCC)- Primary [facility] Diagnosis 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, with long-term current use of insulin (HCC)- Primary 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) Insulin pump status Insulin pump titration Fitting and adjustment of insulin pump [facility] Diagnosis 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, with long-term current use of insulin ([facility]) [facility]* Diagnosis 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, with long-term current use of insulin (HCC)- Primary 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) Insulin pump status Insulin pump titration Fitting and adjustment of insulin pump [facility]* Diagnosis 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, with long-term current use of insulin (HCC)- Primary documented in this encounter [facility] note* Diagnosis 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, with long-term current use of insulin (HCC) [facility]* Diagnosis 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, with long-term current use of insulin (HCC) [facility]* Diagnosis 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 Type 1 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 (HCC) Pancreatic insufficiency (HCC)- Primary Other specified disease of pancreas Pleurisy Pleurisy without mention of effusion or current tuberculosis Pleurisy Pleurisy without mention of effusion or current tuberculosis documented in this encounter [facility] note* Diagnosis 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, with long-term current use of insulin (HCC)- Primary documented in this encounter [facility] note* Diagnosis 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, with long-term current use of insulin (HCC)- Primary documented in this encounter [facility] note* Diagnosis Onset Date Resolution Status Admit Date Ischemic cardiomyopathy acute S eptember 2024 9:54am Type 1 diabetes mellitus acute March 27, 2025 9:54am Acute GI bleeding resolved Sept2024 9:54am Coronary artery disease involving [place] coronary artery of [place] heart wi inactive 2024 9:54am Hypertension inactive March 272024 9:54am S/P PTCA (percutaneous transluminal coronary angioplasty) inactive March 27, 2025 9:54am [facility] Work Phone: History and physical note Author Indra Guillory [facility] Note Date/Time July 17, 2024 1: 48am [facility] [address] [place] [address] Hospitalist H&P Signed Patient: Manolo Vickers MR#: [id number] : 1935 Acct:[id number] Age/Sex: 89 / M Adm Date: 5 Loc: Room: [address] [place] [address] Type: ADM INOo Attending Dr: Indra Guillory MD Copies to: MD Marie Keller DO~ HPI DATE OF EXAMINATION: 07/17/24 CHIEF COMPLAINT: Chest pain HISTORY OF PRESENT ILLNESS: Mr. Vickers is an 89-year-old male with PMH of type 1 diabetes mellitus, CAD, BPH, ischemic cardiomyopathy status post ICD who presents to the emergency department with complaints of chest pain over the past 2 to 3 days. Patient notes that with deep inspiration he has significant discomfort in the left side of his chest. He has not experienced pain like this before. Pain is left-sidedand below where his ICD is placed. He does note that it is superficial and upondeep inspiration. Given that the symptoms persisted over the last few days he decided to come into the emergency department for further evaluation. He does note some associated dizziness with the chest pain, but no other major symptoms otherwise. In the emergency department, vital signs are largely within normal limits, though patient is moderately hypertensive. Lab work is noteworthy for elevated BNP of 2052, CPK 136, initial troponin 32 and repeat troponin 29. Patient underwent CT imaging of the chest to rule out PE. There was no evidence of pulmonary embolism, but there was cardiomegaly with small pericardial effusion as well as interstitial edema consistent with possible congestive heart failure. Patient was given Bumex x 1 dose, 2 DuoNeb treatments and Solu-Medrol. Case was discussed between myself and ED attending and patient was admitted to hospitalist service for further management. Review of Systems Review of Systems Review of systems: 10 point ROS reviewed and is neg except for that which is noted above in HPI [facility] Medical History Type 1 diabetes mellitus CAD (coronary artery disease) Former smoker BPH (benign prostatic hyperplasia) Urinary frequency Cardiomyopathy wearing external defib Coronary artery disease involving [place] coronary artery of [place] heart withoutangina pectoris GI bleeding Dupuytren's contracture of right hand Carpal tunnel syndrome of left wrist Cervical spine fracture Fracture of cervical spinous process Stomach ulcer previous rupture with repair. Melena Anxiety and depression Hypertension Protein-calorie malnutrition, mild BPH (benign prostatic hyperplasia) Surgical History AICD (automatic cardioverter/defibrillator) present History of bilateral cataract extraction History of appendectomy History of cardiac catheterization S/P PTCA (percutaneous transluminal coronary angioplasty) History of tonsillectomy History of resection of pancreas due to cysts of pancreas and weight loss History of back surgery 1985 H/O heart artery stent History of repair of hip fracture R side with 3 nails in. H/O splenectomy Family History Brother Cancer Son Sarcoma Mother No problems noted. Father No problems noted. Sister Leukemia Social History Smoking Status: Former smoker Tobacco Type: cigarettes Substance Use Type: Alcohol Substance Abuse Comment: Pt states he drinks 1 glass of wine every night Meds Medications and Allergies Allergies No Known Allergies Allergy (Verified 07/16/24 11:43) Home Medications aspirin 81 mg tablet,delayed release 81 mg PO DAILY 30 days #30 tabs 05/07/23 [Rx Confirmed 07/16/24] xtcizm-cuhstccl-cgjqhya 24,000-76,000-120,000 unit capsule,delayed rel (Creon) 2cap PO TID.WITH.MEALS 30 days #120 caps 05/07/23 [Rx Confirmed 07/16/24] nitroglycerin 0.4 mg sublingual tablet 0.4 mg sublingual Q5M PRN Chest Pain 30 days #30 tabs 05/07/23 [Rx Confirmed 07/16/24] acetaminophen 500 mg tablet 500 mg PO Q6HR PRN pain 08/31/23 [History Confirmed 06/16/24] insulin aspart U-100 100 unit/mL (3 mL) subcutaneous pen (Novolog FlexPen U-100 Insulin aspart) See Protocol subcut TID.WM.HS #0 mL 09/03/23 [Rx Confirmed 07/16/24] blood sugar diagnostic #120 ea 09/05/23 [Rx Confirmed 07/16/24] lancets #120 ea 09/05/23 [Rx Confirmed 07/16/24] pen needle, diabetic 32 gauge x 5/32 (BD Ultra-Fine [place] Pen Needle) #100 ea 09/05/23 [Rx Confirmed 07/16/24] cholecalciferol (vitamin D3) 100 mcg PO DAILY 10/26/23 [History Confirmed 07/16/24] loratadine 10 mg tablet (Claritin) 1 tab PO DAILY 10/26/23 [History Confirmed 07/16/24] lutein 6 mg capsule 6 mg PO DAILY 10/26/23 [History Confirmed 07/16/24] multivitamin with minerals-folic acid 12 mcg chewable tablet (Centrum Adults) 1 tab PO DAILY 10/26/23 [History Confirmed 07/16/24] pcuhqq-ogpzxzdv-pivgtxe 24,000-76,000-120,000 unit capsule,delayed rel (Creon) 1cap PO TID PRN gastrointestinal spasms or cramping 02/05/24 [History Confirmed 07/16/24] paroxetine HCl 40 mg tablet 40 mg PO QAM 02/15/24 [History Confirmed 07/16/24] atorvastatin 80 mg tablet 80 mg PO QHS 90 days #90 tabs 02/28/24 [Rx Confirmed 07/16/24] lisinopril 2.5 mg tablet 2.5 mg PO QAM 05/16/24 [History Confirmed 07/16/24] omeprazole 20 mg capsule,delayed release 20 mg PO BID 05/16/24 [History Confirmed 07/16/24] tamsulosin 0.4 mg capsule 0.4 mg PO QPM 05/16/24 [History Confirmed 07/16/24] metoprolol succinate 25 mg tablet,extended release 24 hr 12.5 mg PO BID 07/16/24[History Confirmed 07/16/24] spironolactone 25 mg tablet 25 mg PO DAILY 07/16/24 [History Confirmed 07/16/24] Exam Physical Exam Vital Signs: Temp Pulse Resp BP Pulse Ox O2 Del Method 98.3 F 60 20 133/65 93 L Room Air 07/16/24 21:13 07/16/24 21:13 07/16/24 21:13 07/16/24 21:13 07/16/24 21:13 07/16/24 21:13 Narrative: Constitutional: Middle-aged WM, resting in bed comfortably HEENT: Moist mucous membranes, neck supple Cardiovascular: RRR, no M/R/G, normal S1 and S2, no JVD Respiratory: Lungs clear to auscultation bilaterally, no wheezes, rales or rhonchi GI: Soft, NTND, normoactive bowel sounds : Deferred Neuro: AAO x3, no focal deficits. CN III-XII grossly intact, Strength 5/5 throughout Extremities: No clubbing, cyanosis or edema Psych: Patient calm, cooperative and conversant Results - Hospitalist H&P Lab Results Labs: Laboratory Last Values Corrected WBC 7.2 X10E3/uL (4.1-10.5) 07/16/24 12:30 Uncorrected WBC Count 7.2 x10E3/uL (4.1-10.5) 07/16/24 12:30 RBC 4.50 x10E6/uL (3.90-5.60) 07/16/24 12:30 Hgb 11.7 g/dL (13.0-17.0) L 07/16/24 12:30 Hct 35.8 % (38.8-50.0) L 07/16/24 12:30 MCV 79.7 fl (83.5-101) L 07/16/24 12:30 MCH 25.9 pg (27.5-35.2) L 07/16/24 12:30 MCHC 32.5 g/dL (32.5-35.6) 07/16/24 12:30 RDW 19.9 % (12.0-14.8) H 07/16/24 12:30 Plt Count 210 x10E3/uL (150-450) 07/16/24 12:30 MPV 10.9 fl (6.6-10.1) H 07/16/24 12:30 Neut % (Auto) 64.8 % (.) 07/16/24 12:30 Lymph % (Auto) 18.9 % (.) 07/16/24 12:30 [place] % (Auto) 12.8 % (.) 07/16/24 12:30 Eos % (Auto) 2.7 % (.) 07/16/24 12:30 Baso % (Auto) 0.8 % (.) 07/16/24 12:30 Nucleat RBC Rel Count 0.2 /100 WBC (0-0.5) 07/16/24 12:30 Neut # (Auto) 4.7 x10E3/uL (1.8-7.7) 07/16/24 12:30 Lymph # (Auto) 1.4 x10E3/uL (1.00-4.8) 07/16/24 12:30 [place] # (Auto) 0.9 x10E3/uL (0.0-0.8) H 07/16/24 12:30 Eos # (Auto) 0.2 x10E3/uL (0.0-0.45) 07/16/24 12:30 Baso # (Auto) 0.1 x10E3/uL (0.0-0.2) 07/16/24 12:30 Monocyte Dist Width 17.82 % (0.00-20.00) 07/16/24 12:30 PT 14.3 Seconds (9.0-12.9) H 07/16/24 12:30 INR 1.2 07/16/24 12:30 PHA Creatinine Clear 60.91 07/16/24 12:30 Sodium 133 mmol/L (136-145) L 07/16/24 12:30 Potassium 4.2 mmol/L (3.5-5.1) 07/16/24 12:30 Chloride 99 mmol/L (98-107) 07/16/24 12:30 Carbon Dioxide 28.0 mmol/L (21.0-31.0) 07/16/24 12:30 Anion Gap 10.2 mEq/L (6.0-15.0) 07/16/24 12:30 BUN 18 mg/dL (7-25) 07/16/24 12:30 Creatinine 0.82 mg/dL (0.70-1.30) 07/16/24 12:30 Est GFR (CKD-EPI) > 60.0 mL/Min 07/16/24 12:30 Glucose 191 mg/dL (70-100) H 07/16/24 12:30 POC Glucose 327 mg/dl 07/16/24 19:58 Calcium 8.8 mg/dL (8.6-10.3) 07/16/24 12:30 Total Creatine Kinase 136 U/L (30-223) 07/16/24 12:30 Troponin I High Sens 29.4 pg/mL (0.0-20.0) H 07/16/24 14:37 B-Natriuretic Peptide 2052.0 pg/mL (5-100) H 07/16/24 12:30 Assessment & Plan Assessment/Plan (1) Acute exacerbation of CHF (congestive heart failure): (2) Pleuritic chest pain: (3) Type 1 diabetes mellitus: (4) CAD (coronary artery disease): (5) S/P ICD (internal cardiac defibrillator) procedure: (6) Ischemic cardiomyopathy: Plan Mr. Vickers is an 89-year-old male with PMH of type 1 diabetes mellitus, CAD, BPH, ischemic cardiomyopathy status post ICD who presents to the emergency department with complaints of pleuritic chest pain over the past 2 to 3 days. Patient is no longer having the pain on my assessment in the emergency department. His breathing is nonlabored and lungs sound clear. There is some reproducibility of the chest pain below his ICD/pacer. Suspecting this is more of a superficial chest wall pain and discomfort. CT of the chest does demonstrate small pericardial effusion and evidence of volume overload. He seems to have done well with the 1 dose of IV Bumex. Will consult cardiology for their assessment of patient's cardiac complaints. I will continue IV Bumex,but patient is not severely volume overloaded. Will hold on further treatment for COPD exacerbation including steroids and DuoNebs, as this does not appear carlos consistent with the history I obtained. Will continue home meds otherwise. CODE STATUS: Full code. IP vs OBS Justification Based on differential dx, clinical care plan, and risk of adverse events, if untreated, in my clinical judgement this patient requires an acute care setting as: OBSERVATION because of an expectation of an under 2 midnight stay. Estimated length of stay (# of days): 2 Documented By: Indra Guillory MD 5 [id number] Signed By: <Electronically signed by Indra Guillory MD> 07/17/24 0148 [facility] Work Phone: History general Narrative - Reported* Type Description Date Medical History stage 1 diabetes Surgical History pancreas and spleen removal Surgical History back surgery Surgical History tonsilectomy Surgical History HIP TFN Short 2022 [place] [employer] Other Hospital Discharge instructions* Instructions* Viki Donovan DO - 01/07/2022 Maintain JEFF drain. Strip tubing daily. Empty jeff drain daily and record output Wash daily [...] medications with your primary care provider at yourfoll up office vis Follow-up Follow up with your primary care physician in one week. Follow up with Dr. Bueno in 1 week. If you don't already have a scheduled appointment, please call the office at [phone]. Call Your Doctor If Any of the [...] through Care Everywhere. * Surgical Drain Care ([place]) [facility] Work Phone: Hospital Discharge instructions Additional Instructions [...] -Dietary supplement: Glucerna 1 container twice a day.[facility] Work Phone: Hospital Discharge instructions Additional Instructions [...] doctor or pharmacist, without first calling the spa manager who implanted the stent. If you require [...] weight lifting, stair steppers, etc. until the spa manager approves these activities. Check with the spa manager on your first follow-up visit. CALL YOUR PHYSICIAN at [phone]: -If bleeding should occur from the catheter insertion site- apply pressure to the site then immediately call us. -Report any fever, redness, drainage, increased swelling, or firmness at the catheter insertion site. Some bruising or slight swelling may be present at the time of discharge. -Should arm or leg become cold, numb, white, or blue, contact the spa manager immediately. -IF you should experience episodes of [...] is recommended. Please call Central Scheduling at [phone] to schedule your appointment.] The attending spa manager or [facility] nurse clinician should provide you with specific instructions regarding activity, diet, medications, and further follow up for you. Follow the medication instructions provided on your discharge. If the dosages and instructions on this sheet differ from the dosage and instructions on the bottle, follow the instructions on the bottle. [facility] is not responsible for incorrect prescription information provided by the patient during their visit. Do not stop your medications without consulting your health care provider. Please take the list with you to your next doctor's appointment.[facility] Work Phone: Hospital Discharge instructionsAmbulatory Orders* Referral to Cardiac Rehab Location: None Selected [facility] Work Phone: Progress note Author Anat Perez [facility] February 08, 2024 2:07pm Note Date/Time February 08, 2024 2:04 pm [facility] [address] [place] [address] Cardiology Progress Note Signed Patient: Manolo Vickers MR#: [id number] : 1935 Acct:[id number] Age/Sex: 88 / M Adm Date: 4 Loc: Room: [address] [place] [address] Type: ADM IN Attending Dr: Warren Gross DO Copies to: ~ Date of Service: 02/08/2024 Subjective Interval history: No acute events overnight. Doing well this am. Reports some dark stools this am; Hb stable. Denies chest pain, dyspnea, orthopnea or BLE edema. Exam Physical Exam Vital Signs: Temp Pulse Resp BP Pulse Ox O2 Del Method 97.8 F 45 L 16 124/54 L 98 Room Air 02/08/24 07:59 02/08/24 11:29 02/08/24 11:29 02/08/24 11:29 02/08/24 11:29 02/08/24 11:29 Narrative: GEN: AAOx3. No acute distress. Neck: No JVD. Lungs: Clear to auscultation bilaterally Heart: Regular rate and rhythm. Normal S1 and S2. No murmurs or rubs appreciated. Abdomen: Soft, nontender, nondistended, bowel sounds present. Extremities: No BLE edema. Neuro: AAOx3. No focal deficits. Objective Labs 02/08/24 07:23 02/08/24 07:23 Labs: Laboratory Results - last 24 hr 02/07/24 02/07/24 02/07/24 20:34 20:34 20:36 Corrected WBC Uncorrected WBC Count RBC Hgb Hct MCV MCH MCHC RDW Plt Count MPV Neut % (Auto) Lymph % (Auto) [place] % (Auto) Eos % (Auto) Baso % (Auto) Nucleat RBC Rel Count Neut # (Auto) Lymph # (Auto) [place] # (Auto) Eos # (Auto) Baso # (Auto) PHA Creatinine Clear Sodium Potassium Chloride Carbon Dioxide Anion Gap BUN Creatinine Est GFR (CKD-EPI) Glucose POC Glucose 473 H* 477 H* POC Glucose Comment Will notify /karin Calcium Magnesium 02/07/24 02/08/24 02/08/24 20:36 06:35 07:23 Corrected WBC 5.7 Uncorrected WBC Count 5.7 RBC 3.23 L Hgb 8.8 L Hct 25.8 L MCV 79.9 L MCH 27.1 L MCHC 33.9 RDW 19.3 H Plt Count 180 MPV 11.2 H Neut % (Auto) 51.7 Lymph % (Auto) 22.3 [place] % (Auto) 17.6 Eos % (Auto) 7.1 Baso % (Auto) 1.3 Nucleat RBC Rel Count 0.2 Neut # (Auto) 3.0 Lymph # (Auto) 1.3 [place] # (Auto) 1.0 H Eos # (Auto) 0.4 Baso # (Auto) 0.1 PHA Creatinine Clear 58.45 Sodium 135 L Potassium 4.4 Chloride 102 Carbon Dioxide 29.6 Anion Gap 7.8 BUN 24 Creatinine 0.82 Est GFR (CKD-EPI) > 60.0 Glucose 320 H D POC Glucose 365 POC Glucose Comment Will notify eloise Calcium 8.1 L Magnesium 1.8 L 02/08/24 11:23 Corrected WBC Uncorrected WBC Count RBC Hgb Hct MCV MCH MCHC RDW Plt Count MPV Neut % (Auto) Lymph % (Auto) [place] % (Auto) Eos % (Auto) Baso % (Auto) Nucleat RBC Rel Count Neut # (Auto) Lymph # (Auto) [place] # (Auto) Eos # (Auto) Baso # (Auto) PHA Creatinine Clear Sodium Potassium Chloride Carbon Dioxide Anion Gap BUN Creatinine Est GFR (CKD-EPI) Glucose POC Glucose 382 POC Glucose Comment Calcium Magnesium A&P - Cardiology (1) Acute GI bleeding: Code(s): K92.2 - Gastrointestinal hemorrhage, unspecified (2) Elevated troponin: Code(s): R79.89 - Other specified abnormal findings of blood chemistry (3) Coronary artery disease involving [place] coronary artery of [place] heart without angina pectoris: Code(s): I25.10 - Atherosclerotic heart disease of [place] coronary artery without angina pectoris (4) S/P PTCA (percutaneous transluminal coronary angioplasty): Code(s): Z98.61 - Coronary angioplasty status Plan # Acute recurrent GI Bleed in setting of known PUD (recent EGD on 09/01/23 found a 2 cm ulcer with a nonbleeding visible vessel at the bulb of the duodenum). # CAD s/p PCI in Jul 2023. # Ischemic Cardiomyopathy s/p LifeVest ordered in [place] - Well compensated. # Non-ACS myocardial injury - Is due to demand-supply mismatch 2/2 acute anemia. 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 Current smoker. [facility] 04/30/23 - Two-vessel coronary artery disease- 100% prox LAD occlusion; 80% D1; LCx has 50% prox stenosis with 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 Echo 04/28/24 - EF 40-45%, mild LVH, trace MR and TR. [facility] 07/16/22 - Successful PCI ostial/proximal LAD-diagonal branch; true [employer]IE[employer] PHYSICAL THERAPIST proximal/mid LAD (attempted wiring with balloon). EKG 09/07/23 - sinus peace 56 bpm, anterolateral TWI. EKG 09/08/23 - sinus peace 58 bpm, anterolateral and inferior TWI. - Pt is currently 6 months out from PCI. Plavix stopped. Continue ASA 81mg dailyand monitor Hb - Reviewed records from recent hospitalization at [facility] in [place]. He was hospitalized for NSTEMI and PNA. Elevated troponin was deemed to be due to rhabdomyolysis. ECHO at the time showed LVEF of 30-35% and Life Vest was placed. - Personally reviewed ECHO images from this hospitalization EF is ~30%. ContinueLifeVest. - GDMT: Switch Valsartan to Entresto; continue Toprol and spironolactone. SGLT2i as outpatient. He is euvolemic. Switch to lasix PO 20mg daily. - Follow up with [facility] cardiology as scheduled on 03/02/24. Will plan on repeat ECHO 3 months after being on maximally tolerated GDMT to determine need for ICD. - Cardiology will sign off. Please call with questions. Documented By: Anat Perez MD 02/08/24 9025 Signed By: <Electronically signed by Anat Perez MD> 02/08/24 [id number] [facility] Work Phone: Progress note Author Chuck Velasco [facility] Note Date/Time May 25, 2024 10:41am [facility] [address] [place] [address] Cardiology Progress Note Signed Patient: Manolo Vickers MR#: [id number] : 1935 Acct:[id number] Age/Sex: 89 / M Adm Date: 4 Loc: 4 Room: [address] [place] [address] Type: ADM IN Attending Dr: Abdulaziz Root MD Copies to: ~ Date of Service: 05/25/2024 Subjective Interval history: Pacemaker insertion site has no swelling, tenderness or oozing. Does have mild bruising which is expected. Chest x-ray is negative for pneumothorax. Pacemaker interrogation is normal. Telemetry: Regular paced rhythm. Exam Physical Exam Vital Signs: Temp Pulse Resp BP Pulse Ox O2 Del Method O2 Flow Rate 98.0 F 60 16 151/96 H 97 Room Air 10 05/25/24 08:00 05/25/24 08:00 05/25/24 08:00 05/25/24 08:00 05/25/24 08:00 05/25/24 08:00 05/24/24 19:25 Narrative: Physical Exam: General: NAD, A&Ox3, Cooperative Head, Eyes: NC/AT, EOMI Lungs: Good air entry; No crackles/rhonchi/wheezes Chest: Left upper chest CIED Heart: S1S2 normal, Regular rhythm, No murmurs/rubs/gallop, No JVD Extremities: No edema. Abdomen: Soft, non-tender, non-distended. Neuro: CN grossly intact, No focal deficits. Psych: Normal mood & affect. Objective Labs 05/25/24 04:44 Labs: Laboratory Results - last 24 hr 05/24/24 05/24/24 05/24/24 16:15 16:36 16:40 PT 12.9 INR 1.1 APTT 30.1 PHA Creatinine Clear 61.04 Sodium 138 Potassium 3.9 Chloride 103 Carbon Dioxide 27.0 Anion Gap 11.9 BUN 22 Creatinine 0.82 Est GFR (CKD-EPI) > 60.0 Glucose 108 H POC Glucose 55 L* 100 POC Glucose Comment Calcium 8.8 05/24/24 05/24/24 05/25/24 19:31 20:20 04:44 PT INR APTT PHA Creatinine Clear 60.91 Sodium 138 Potassium 4.0 Chloride 103 Carbon Dioxide 27.5 Anion Gap 11.5 BUN 19 Creatinine 0.75 Est GFR (CKD-EPI) > 60.0 Glucose 80 POC Glucose 87 68 POC Glucose Comment Calcium 8.6 05/25/24 07:18 PT INR APTT PHA Creatinine Clear Sodium Potassium Chloride Carbon Dioxide Anion Gap BUN Creatinine Est GFR (CKD-EPI) Glucose POC Glucose 87 POC Glucose Comment Calcium A&P - Cardiology (1) S/P ICD (internal cardiac defibrillator) procedure: Code(s): Z95.810 - Presence of automatic (implantable) cardiac defibrillator (2) Non-ST elevation myocardial infarction (NSTEMI), subendocardial infarction, subsequent episode of care: Code(s): I21.4 - Non-ST elevation (NSTEMI) myocardial infarction (3) Ischemic cardiomyopathy: Code(s): I25.5 - Ischemic cardiomyopathy (4) Sinus bradycardia: Code(s): R00.1 - Bradycardia, unspecified Plan # CAD s/p PCI in Jul 2023. 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 Current smoker. ECHO 03/09/2024: ECHO which showed persistently low EF 25-30% with anteroseptal and apical wall akinesis and moderate MR. -S/p ICD placement for primary prevention of SCD. -Increase metoprolol to 50 mg BID. Continue other elements of GDMT. -Okay to discharge home today. Documented By: Chuck Velasco MD 05/12 11/02 1035 Signed By: <Electronically signed by Chuck Velasco MD> 05/25/24 1041 [facility] Work Phone: Reason for referral (narrative)* Consultation (Routine) - Authorized Specialty Diagnoses / Procedures Referred By Contac t Referred To Contact Cardiology Diagnoses Abnormal stress test ASHD (arteriosclerotic heart disease) NSTEMI (non-ST elevated myocardial infarction) ([facility]/HCC) Procedures Follow Up In Cardiology Govind Davis, DO [address] [facility], [address] [address] Govind Davis, DO [facility] [facility], [place] [id number] Referral ID Status Reason Start Date Expiration Date V isits Requested Visits Authorized [id number] Authorized 05/25/2023 05/24/2024 1 1 * Cardiovascular (Routine) - Pending Review Specialty Diagnoses / Procedures Referred By Contac t Referred To Contact Diagnoses Abnormal stress test ASHD (arteriosclerotic heart disease) Procedures ECG 12 Lead Govind Davis, DO [address] [facility], [place] [id number] Referral ID Status Reason Start Date Expiration Date V isits Requested Visits Authorized [id number] Pending Review 05/25/2023 05/24/2024 1 1 [facility] Work Phone: Reason for referral (narrative)No reason for referral information [facility] Work Phone: Summary Purpose Family History Relationship Condition Age at Onset Recorded Date/T madelyn brother Malignant neoplasm Unknown natural son Sarcoma Unknown Relationship Condition Age at Onset Recorded Date/T madelyn brother Malignant neoplasm Unknown natural son Sarcoma Unknown sister Leukemia Unknown Relationship Condition Age at Onset Recorded Date/T madelyn brother Malignant neoplasm Unknown son Sarcoma Unknown sister Leukemia Unknown Relationship Condition Age at Onset Recorded Date/T madelyn brother Malignant neoplasm Unknown Unknown son Sarcoma Unknown sister Leukemia Unknown Advance Directives Latest Code Status on File Code Status Date Activated Date Inactivated Comments Full Code 01/02/2022 10:32 PM Full Code 01/02/2022 8:11 PM 01/02/2022 10:32 PM Healthcare Agents on File Name Relationship [facility] Opal Vickers Spouse Primary Decision Maker Saúl Vickers Child Secondary Decision Maker Advance Directive Response Recorded Date/ Time Advance Directives No March 5:30pm Advance Directive Response Recorded Date/ Time Advance Directives No March 4:30pm Date Activated Date Inactivated Comments 04/26/2024 7:43 AM Date Activated Date Inactivated Comments 04/26/2024 7:43 AM Chief Complaint and Reason for Visit Chief [...] fracture, closed Barretts esophagus H pylori ulcer Chief Complaint gastric ulcer gastric ulcer Dizziness Reason for Visit Acute electrocardiog jose changes Acute GI bleeding Elevated troponin GI bleeding Chief Complaint gastric ulcer gastric ulcer Dizziness Dizziness Dizziness Reason for Visit Acute electrocardiog jose changes Acute GI bleeding CAD (coronary artery disease) [id number] Elevated troponin GI bleeding History of pancreatectomy Hypertension S/P PTCA (percutaneous transluminal coronary angioplasty) Type 1 diabetes mellitus Chief Complaint Dizziness Dizziness Dizziness K92.2 Reason for Visit Acute electrocardiog jose changes Acute GI bleeding CAD (coronary artery disease) [id number] Elevated troponin GI bleeding History of pancreatectomy Hypertension S/P PTCA (percutaneous transluminal coronary angioplasty) Type 1 diabetes mellitus Chief Complaint Dizziness Dizziness Dizziness K92.2 K92.2 Reason for Visit Acute electrocardiog jose changes Acute GI bleeding CAD (coronary artery disease) [id number] Elevated troponin GI bleeding History of pancreatectomy Hypertension S/P PTCA (percutaneous transluminal coronary angioplasty) Type 1 diabetes mellitus Chief Complaint Dizziness Dizziness Dizziness K92.2 K92.2 [facility] 02/06 Reason for Visit Acute electrocardiog jose changes Acute GI bleeding CAD (coronary artery disease) [id number] Elevated troponin GI bleeding History of pancreatectomy Hypertension S/P PTCA (percutaneous transluminal coronary angioplasty) Type 1 diabetes mellitus Chief Complaint Dizziness Dizziness Dizziness K92.2 K92.2 [facility] 02/06 k92.2 d50.9 r00.1 Reason for Visit Acute electrocardiog jose changes Acute GI bleeding Elevated troponin Ischemic cardiomyopathy Acute GI bleeding Chief Complaint Dizziness Dizziness Dizziness K92.2 K92.2 [facility] 02/06 r00.1 k92.2 d50.9 r00.1 bp check Reason for Visit Acute electrocardiog jose changes Acute GI bleeding Elevated troponin Ischemic cardiomyopathy Acute GI bleeding Chief Complaint Dizziness Dizziness Dizziness K92.2 K92.2 [facility] 02/06 r00.1 k92.2 d50.9 r00.1 bp check E61.1,K92.2 I25.10 Reason for Visit Acute electrocardiog jose changes Acute GI bleeding Elevated troponin Ischemic cardiomyopathy Acute GI bleeding Iron deficiency Ischemic cardiomyopathy Chief Complaint Dizziness Dizziness Dizziness K92.2 K92.2 [facility] 02/06 r00.1 k92.2 d50.9 r00.1 bp check I25.10 E61.1,K92.2 Reason for Visit Acute electrocardiog jose changes Acute GI bleeding Elevated troponin Ischemic cardiomyopathy Acute GI bleeding Iron deficiency Ischemic cardiomyopathy Chief Complaint Dizziness Dizziness Dizziness K92.2 K92.2 [facility] 02/06 r00.1 k92.2 d50.9 r00.1 bp check I25.10 E61.1,K92.2 2 weeks bp Reason for Visit Acute electrocardiog jose changes Acute GI bleeding Elevated troponin Ischemic cardiomyopathy Acute GI bleeding Iron deficiency Ischemic cardiomyopathy Chief Complaint Dizziness Dizziness Dizziness K92.2 K92.2 [facility] 02/06 r00.1 k92.2 d50.9 r00.1 bp check I25.10 E61.1,K92.2 2 weeks bp 6 weeks Reason for Visit Acute electrocardiog jose changes Acute GI bleeding Elevated troponin Ischemic cardiomyopathy Acute GI bleeding Iron deficiency Ischemic cardiomyopathy Ischemic cardiomyopathy Ischemic cardiomyopathy Acute GI bleeding Chief Complaint Dizziness Dizziness Dizziness K92.2 K92.2 [facility] 02/06 r00.1 k92.2 d50.9 r00.1 bp check I25.10 E61.1,K92.2 2 weeks bp 6 weeks evaluation for ICD evaluation for ICD Reason for Visit Acute electrocardiog jose changes Acute GI bleeding Elevated troponin Ischemic cardiomyopathy Acute GI bleeding Iron deficiency Ischemic cardiomyopathy Ischemic cardiomyopathy Ischemic cardiomyopathy Acute GI bleeding Chief Complaint Dizziness Dizziness Dizziness K92.2 K92.2 [facility] 02/06 r00.1 k92.2 d50.9 r00.1 bp check I25.10 E61.1,K92.2 2 weeks bp 6 weeks evaluation for ICD evaluation for ICD HFC Reason for Visit Acute electrocardiog jose changes Acute GI bleeding Elevated troponin Ischemic cardiomyopathy Acute GI bleeding Iron deficiency Ischemic cardiomyopathy Ischemic cardiomyopathy Ischemic cardiomyopathy Acute GI bleeding Chief Complaint Dizziness Dizziness Dizziness K92.2 K92.2 [facility] 02/06 r00.1 k92.2 d50.9 r00.1 bp check I25.10 E61.1,K92.2 2 weeks bp 6 weeks evaluation for ICD evaluation for ICD HFC Reason for Visit Acute electrocardiog jsoe changes Acute GI bleeding Elevated troponin Ischemic cardiomyopathy Acute GI bleeding Iron deficiency Ischemic cardiomyopathy Ischemic cardiomyopathy Ischemic cardiomyopathy Acute GI bleeding Ischemic cardiomyopathy [id number] Sinus bradycardia H pylori ulcer Iron deficiency Ischemic cardiomyopathy [id number] Chief Complaint K92.2 K92.2 [facility] 02/06 r00.1 k92.2 d50.9 r00.1 bp check I25.10 E61.1,K92.2 2 weeks bp 6 weeks evaluation for ICD evaluation for ICD HFC BP WITH ORTHO Reason for Visit Ischemic cardiomyopa thy Acute GI bleeding Iron deficiency Ischemic cardiomyopathy Ischemic cardiomyopathy Ischemic cardiomyopathy Acute GI bleeding Ischemic cardiomyopathy [id number] Sinus bradycardia H pylori ulcer Iron deficiency Ischemic cardiomyopathy [id number] Chief Complaint Admit Date bp check February 29, 2024 12 :54pm I25.10 March 09, 2024 2: 17pm E61.1,K92.2 March 10, 2024 10 :30am 2 weeks bp March 15, 2024 10:29am 6 weeks March 27, 2024 10:57am evaluation for ICD April 26, 2024 1 0:19am evaluation for ICD April 26, 2024 1 0:23am HFC April 26, 2024 1 :15pm BP WITH ORTHO May 10, 2024 1 0:52am Cardiomyopathy May 16, 2024 1 1:59am Cardiomyopathy May 24, 2024 7:21pm Cardiomyopathy May 24, 2024 8:30pm Cardiomyopathy May 25, 2024 12:00am Cardiomyopathy May 25, 2024 10:35am Reason for Visit Admit Date Iron deficiency February 29, 2024 12 :54pm Ischemic cardiomyopathy February 28 12:54pm Ischemic cardiomyopathy March 15, 2 024 10:29am Ischemic cardiomyopathy March 27, 2024 10:57am Acute GI bleeding March 27, 2024 10:57am Coronary artery disease invo lving [place] coronary artery of [place] heart [place] March 27, 2024 10:57am Hypertension March 27, 2024 10:57am S/P PTCA (percutaneous trans luminal coronary angioplasty) March 27, 2024 10:57am Type 1 diabetes mellitus March 27, 2024 10:57am Ischemic cardiomyopathy April 26 10:23am Non-ST elevation myocardial infarction (NSTEMI), subendocardial infarction, April 26, 2024 10:23am Sinus bradycardia April 26, 2024 1 0:23am H pylori ulcer April 26, 2024 1 :15pm Iron deficiency April 26, 2024 1 :15pm Ischemic cardiomyopathy April 26 1:15pm Non-ST elevation myocardial infarction (NSTEMI), subendocardial infarction, April 26, 2024 1:15pm Ischemic cardiomyopathy May 10 10:52am Ischemic cardiomyopathy May 24 024 8:30pm Non-ST elevation myocardial infarction (NSTEMI), subendocardial infarction, May 24, 2024 8:30pm S/P ICD (internal cardiac defibrillator) procedure May 24, 2024 8:30pm Sinus bradycardia May 24, 2024 8:30pm Chief Complaint Admit Date abd pain-swelling June 16, 2024 4 :58pm Abdominal Wall abcess June 19, 2024 6:26pm Abdominal Wall abcess June 20 12:00am chest pain July 16, 2024 6: 08pm chest pain July 17, 2024 4: 37pm I47.2 Z95.810 August 29, 2024 1:28pm Reason for Visit Admit Date Iron deficiency June 16, 2024 4 :58pm Ischemic cardiomyopathy June 16 4:58pm S/P ICD (internal cardiac defibrillator) procedure June 16, 2024 4:58pm Sinus bradycardia June 16, 2024 4 :58pm Abdominal abscess June 16, 2024 4 :58pm Abdominal wall abscess June 16 4:58pm Type 1 diabetes mellitus June 19, 2 024 6:26pm Abdominal abscess June 19, 2024 6 :26pm Abdominal wall abscess June 19 6:26pm CAD (coronary artery disease) July 6:08pm Ischemic cardiomyopathy July 16 6:08pm S/P ICD (internal cardiac defibrillator) procedure July 16, 2024 6:08pm Type 1 diabetes mellitus July 16 6:08pm Acute exacerbation of CHF (congestive he art failure) July 16, 2024 6:08pm COPD with acute exacerbation July 6:08pm Pleuritic chest pain July 16, 2024 6 :08pm Chief Complaint Admit Date abd pain-swelling June 16, 2024 4 :58pm Abdominal Wall abcess June 19, 2024 6:26pm Abdominal Wall abcess June 20 12:00am chest pain July 16, 2024 6: 08pm chest pain July 17, 2024 4: 37pm I47.2 Z95.810 August 29, 2024 1:28pm [facility] 07/17August 31, 2024 9:56am Reason for Visit Admit Date Iron deficiency June 16, 2024 4 :58pm Ischemic cardiomyopathy June 16 4:58pm S/P ICD (internal cardiac defibrillator) procedure June 16, 2024 4:58pm Sinus bradycardia June 16, 2024 4 :58pm Abdominal abscess June 16, 2024 4 :58pm Abdominal wall abscess June 16 4:58pm Type 1 diabetes mellitus June 19, 2 024 6:26pm Abdominal abscess June 19, 2024 6 :26pm Abdominal wall abscess June 19 6:26pm CAD (coronary artery disease) July 6:08pm Ischemic cardiomyopathy July 16 6:08pm S/P ICD (internal cardiac defibrillator) procedure July 16, 2024 6:08pm Type 1 diabetes mellitus July 16 6:08pm Acute exacerbation of CHF (congestive he art failure) July 16, 2024 6:08pm COPD with acute exacerbation July 6:08pm Pleuritic chest pain July 16, 2024 6 :08pm Ischemic cardiomyopathy August 31, 2 025 9:56am Type 1 diabetes mellitus August 31, 2024 9:56am Acute GI bleeding August 31, 2024 9:56am Coronary artery disease invo lving [place] coronary artery of [place] heart wi August 31, 2024 9:56am Hypertension August 31, 2024 9:56am S/P PTCA (percutaneous transluminal mounika nary angioplasty) August 31, 2024 9:56am Chief Complaint Admit Date chest pain July 16, 2024 6: 08pm chest pain July 17, 2024 4: 37pm I47.2 Z95.810 August 29, 2024 1:28pm [facility] 07/17August 31, 2024 9:56am 6 weeks October 13, 2024 9:10 am Reason for Visit Admit Date CAD (coronary artery disease) July 6:08pm Ischemic cardiomyopathy July 16 6:08pm S/P ICD (internal cardiac defibrillator) procedure July 16, 2024 6:08pm Type 1 diabetes mellitus July 16 6:08pm Acute exacerbation of CHF (congestive he art failure) July 16, 2024 6:08pm COPD with acute exacerbation July 6:08pm Pleuritic chest pain July 16, 2024 6 :08pm Ischemic cardiomyopathy August 31 025 9:56am Type 1 diabetes mellitus August 31, 2024 9:56am Acute GI bleeding August 31, 2024 9:56am Coronary artery disease invo lving [place] coronary artery of [place] heart wi August 31, 2024 9:56am Hypertension August 31, 2024 9:56am S/P PTCA (percutaneous transluminal mounika nary angioplasty) August 31, 2024 9:56am Ischemic cardiomyopathy October 13, 2024 9:10am Type 1 diabetes mellitus October 13, 2024 9:10am Acute GI bleeding October 13, 2024 9:10 am Coronary artery disease invo lving [place] coronary artery of [place] heart wi October 13, 2024 9:10am Hypertension October 13, 2024 9:10 am S/P PTCA (percutaneous transluminal mounika nary angioplasty) October 13, 2024 9:10am Chief Complaint Admit Date 6 weeks October 13, 2024 9:10 am I47.2 Z95.810 November 30, 2024 1:39p m Reason for Visit Admit Date Ischemic cardiomyopathy October 13, 2024 9:10am Type 1 diabetes mellitus October 13, 2024 9:10am Acute GI bleeding October 13, 2024 9:10 am Coronary artery disease invo lving [place] coronary artery of [place] heart wi October 13, 2024 9:10am Hypertension October 13, 2024 9:10 am S/P PTCA (percutaneous transluminal mounika nary angioplasty) October 13, 2024 9:10am Chief Complaint Admit Date I47.2 Z95.810 March 02, 2025 11 :36am Reason for Visit Admit Date Ischemic cardiomyopathy March 27, 2025 9:54am Type 1 diabetes mellitus March 27, 2025 9:54am Acute GI bleeding March 27, 2025 9:54am Coronary artery disease invo lving [place] coronary artery of [place] heart wi March 27, 2025 9:54am Hypertension March 27, 2025 9:54am S/P PTCA (percutaneous transluminal mounika nary angioplasty) March 27, 2025 9:54am Additional Source Comments (unrecognized sect ion and content) No Status Records FoundNo Status Records FoundNo Status Records FoundNo Status Records FoundNo Status Records FoundNo Status Records FoundNo Status Records FoundNo Status Records FoundNo Status Records FoundNo Status Records FoundNo Status Records Found INFORMATION SOURCE (unrecogn ized section and content) DATE CREATED AUTHOR 06/21/2019 [facility] DATE CREATED AUTHOR AUTHOR'S ORGANIZ ATION 01/29/2022 [facility] DATE CREATED AUTHOR AUTHOR'S ORGANIZ ATION 06/11/[address] [facility] DATE CREATED AUTHOR AUTHOR'S ORGANIZ ATION 06/12/2023 [facility] DATE CREATED AUTHOR AUTHOR'S ORGANIZ ATION 10/23/2023 [facility] DATE CREATED AUTHOR AUTHOR'S ORGANIZ ATION 11/18/2023 [facility] DATE CREATED AUTHOR AUTHOR'S ORGANIZ ATION 01/27/2024 [facility] DATE CREATED AUTHOR AUTHOR'S ORGANIZ ATION 05/05/2024 [facility] DATE CREATED AUTHOR AUTHOR'S ORGANIZ ATION 01/20/2025 [facility] EPIC DATE CREATED AUTHOR AUTHOR'S ORGANIZ ATION 02/17/2025 [facility] DATE CREATED AUTHOR AUTHOR'S ORGANIZ ATION 03/08/2025 [facility] Reason for Visit (unrecogniz ed section and content) Reason Comments Abdominal Pain ulcer Specialty Diagnoses / Procedures Referred By Corbin t Referred To Contact Diagnoses Acute gastric ulcer with perforation (HCC) Perforated viscus Delon Conn, DO [address] [facility] [address] [place] [address] [facility] [address] [place] [address] Referral ID Status Reason Start Date Expiration Date Visits Re quested Visits Authorized [id number] 1 1 Reason Comments Hospital Follow-up [facility] 05/08/2023 Specialty Diagnoses / Procedures Referred By Corbin bradshaw Referred To Contact Diagnoses Abnormal stress test ASHD (arteriosclerotic heart disease) Procedures ECG 12 Lead Govind Davis, DO [address] [facility] [address] [place] [address] Referral ID Status Reason Start Date Expiration Date V isits Requested Visits Authorized [id number] Pending Review 05/25/2023 05/24/2024 1 1 Reason Comments Follow-up PCI Specialty Diagnoses / Procedures Referred By Corbin bradshaw Referred To Contact Cardiology Diagnoses ASHD (arteriosclerotic heart disease) Procedures Follow Up In Cardiology Sammy Wolff, AMADA-TUBE BENDER HAND [address] [facility] [address] [place] [address] Referral ID Status Reason Start Date Expiration Date V isits Requested Visits Authorized [id number] Authorized 06/23/2023 06/22/2024 1 1 Reason Comments One-week office visit Today patient repo rts he is feeling better after taking the atb. Reason Comments Medicare Annual Wellness Visit Subsequen t Three-month ov Hyperglycemia Patient report his B G have been running as high as 300. He also very thirst. Cough At night for the las t several weeks Dizziness Reason Comments Hospital Follow-up Fall Patient reports he t ook a fall on Sat, hitting the area of the pacemaker. This area is tender coordinator and itchy. 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 abd. wall abscess Reason Comments Omnipod DASH to 5 pump upgrade Reason Comments Hospital Follow-up Reason Comments Appointment Reason Comments Diabetes Self Management Education Reason Comments Forms [facility] note Reason Comments Forms [facility]- Physcians order Reason Comments One Month OV Patient had his Lasi x cut in half for his Dizziness. Today reports his dizziness is still the same as when he was last here. He will need another script of Lasix if he is to continue this medication. Off balance Patient reports this is not getting any better. He feels like he is walking slow but doing poorly Reason Comments Omipod 5 upgrade follow up call Reason Comments Omnipod 5 pump issue Reason Comments Diabetes Reason Comments Omnipod 5 pump follow up call Reason Comments Omnipod 5/Dexcom help Reason Comments Dexcom G7 CGM supply issues Reason Comments Med Change Request Reason Comments Insurance Authorization insulin pump car t,auto,BT,G6/7 (OMNIPOD 5 G6-G7 PODS, GEN 5,) crtg Reason Comments Omnipod 5/Dexcom G7 issues Reason Comments Omnipod/Dexcom issues Reason Comments High Blood Sugar Reason Onset Date Comments Refill Request 12/19/2024 Reason Onset Date Comments Refill Request 12/12/2024 Reason Comments Flank Pain Left-side for 10 day s, denies change in bowel movements, no known injury. Pain has been severe but intermittently lack of appetite Wt loss of 10 lbs si nce last OV Ordered Prescriptions (unrec ognized section and content) [...] Sage RN)2350 (Given - Provider: Queta Geiger, RN) 0517 (Given - Provider: Queta Geiger, RN)1400 (Due)2200 (Due) amLODIPine (NORVASC) tablet 5 [...] RN) 0815 (Patient/Family Admin - Provider: Leatha Hudson, KARIN) Insulin Pump - Bolus Dose (Patient Supplied) SubCUTAneous, EVERY 4 HOURS, First dose on Wed01/03/22 at 1600, Patient to bolus using insulin [...] Comment: [phone] (Not Given - Provider: Baljit Saeg RN - Reason: Order parameters not met)1928 [...] mL/hr, Administer over 2 Hours, ONCE, On 01/05/22 at 0630, For 1 dose, Recommended infusion [...] Sage RN)2317 (New Bag - Provider: Queta Geiger RN)2351 (Stopped - Provider: Queta Geiger RN) 0506 (New Bag - Provider: Queta Geiger, KARIN)0536 (Stopped - Provider: Courtney Yao RN)1104 (New Bag - Provider: Baljit Sage RN)1134 (Stopped - Provider: Baljit Sage RN) pantoprazole (PROTONIX) 40 mg in sodium chloride (PF) 10 mL injection 40 mg, IntraVENous, EVERY 12 HOURS, First dose on Wed01/02/22 at 2300, Reconstitute with 10 mL 0.9 % sodium chloride and administer over at least 2 minutes. 1132 (Given - Provider: Baljit Sage RN)2300 (Given - Provider: Queta Geiger RN) 1100 (Given - Provider: Baljit Sage RN)2355 (Given - Provider: Queta Geiger RN) 0939 (Given - Provider: Leatha Hudson, KAIRN)2300 (Due) PARoxetine (PAXIL) tablet 30 mg 30 [...] Sage RN)192 (Given - Provider: Queta Geiger, KARIN) 0938 (Not Given - Provider: Leatha Hudson [...] Sage RN)2306 (Given - Provider: Queta Geiger, RN) 0621 (Given - Provider: Queta Geiger, RN)1211 (Given - Provider: Baljit Sage RN)1757 (Given - Provider: Baljit Sage RN)2350 (Given - Provider: Queta Geiger, RN) 0517 (Given - Provider: Queta Geiger, RN)1217 (Given - Provider: Leatha Hudson RN)1800 (Due) Continuous Medication Order 01/05/2022 01/06/2022 01/07/2022 0.9 % sodium chloride infusion IntraVENous, at 75 mL/hr, CONTINUOUS, Starting on Wed01/06/22 at 0830 0807 (New Bag - Provider: Baljit Sage RN)2349 (New Bag - Provider: Queta Geiger RN) lactated ringers infusion (CANCELED) IntraVENous, at 125 [...] Discontinued, Sleep 0022 (Given - Provider: Queta Geiger, KARIN) ondansetron (ZOFRAN) injection 4 mg(Linked Group 2) [...] Active Tru Briceno MD Other Provider Active Electrical Technology Instructor Relationship Specialty Start Date End Date Marie Castro [facility] [address] [place] [address] PCP - General Internal Medicine 01/07/22 Team Status: Active Member Role Status Dates Marie Castro DO Primary Care Provider Active Vinnie Rivas PA-C Emergency Provider Active Sushant Cordon DO Admit Provider, Attending Pr ovider Active Team Status: Inactive Member Role Status Dates Marie Castro DO Primary Care Provider Active Fredi Medrano MD Admit Provider, Attending Provider Active Lois Blanca , RN Other Provider Active Kavya Velazquez , RN Other Provider Active Gay Angulo , RN Other Provider Active Buffy Hernandez , RN Other Provider Active Fransisca Bentley , RN Other Provider Active Diamond Henry , KARIN Other Provider Active Chris Holm MD Other Provider Active Vivian Zavala , SILK SPOOLER Other Provider Active Samantha Wilson , DO Other Provider Active Eirc Major MD Other Provider Active Sushant Cordon , DO Other Provider Active Audi Gaming MD Other Provider Active Cecily Keen MD Other Provider Active Nidia Wright , SILK SPOOLER Other Provider Active Daniel Reyes MD Other Provider Active Roberto Sevilla MD Other Provider Active Humberto Diaz MD Other Provider Active Marzena Otto MD Other Provider Active Gray Gilliam , DO Other Provider Active Mc Cornejo MD Other Provider Active Raymundo Angeles MD Other Provider Active Marga Mccauley , THREAD CHECKER-C Other Provider Active Indra Guillory MD Other Provider Active David Fonseca MD Other Provider Active Hai Aguilera MD Other Provider Active Esau Corrales MD Other Provider Active Leda Urena , DO Other Provider Active Guevara Mills , DO Other Provider Active Jose Roberto Felder , DO Other Provider Active Anat Marte , SILK SPOOLER Other Provider Active Warren Gross , DO Other Provider Active Nayeli Jimenez MD Other Provider Active Nicole Wolff , SILK SPOOLER Other Provider Active Melisa Pimentel , SILK SPOOLER Other Provider Active Vidya Robert MD Other Provider Active Howard Burrell MD Other Provider Active Jeevan John , DO Other Provider Active Rosario Murdock SILK SPOOLER Other Provider Active Mauricio Drake , DO Other Provider Active Erma Morillo , KARIN Other Provider Active Electrical Technology Instructor Relationship Specialty Start Date End Date Marie Castro, [address] [place] [address] PCP - General Internal Medicine 05/18/23 Team [...] Active Herminio Lakhani MD Attending Provider Active Electrical Technology Instructor Relationship Specialty Start Date End Date Marie Castro DO [address] [place] [address] PCP - General Internal Medicine 05/18/23 Team [...] Shearer MD Other Provider Active Start: Aug louie 2023 End: September 06, 2023 Beka Roland MD [...] Vidya Robert MD Other Provider Active Start: 2023 Team Status: Inactive Member Role Status Dates Marie Castro DO Primary Care Provider Active Start: September 24, 2023 End: September 24, 2023 Audi Gaming MD Attending Provider Active St art: September 24, 2023 End: September 24, 2023 Team Status: Inactive Member Role Status Denis Castro DO Primary Care Provider Active Start: [...] October 28, 2023 End: October 28, 2023 Team Status: Active Member Role Status Dates Anat Perez MD Grill Chef Active Marie Castro DO Primary Care Provider Active Team Status: Inactive Member Role Status Dates Marie Castro DO Primary Care Provider Active Start: November 11, 2023 End: November 11, 2023 Alberto Shearer MD Attending Provider Active Start: November 11, 2023 End: November 11, 2023 Team Status: Active Member Role Status Dates Marie Castro DO Primary Care Provider Active Start: November 11, 2023 Alberto Shearer MD Attending Provider, Other Provider Act tiffany Start: November 11, 2023 Team Status: Active Member Role Status Dates Marie Castro DO Primary Care Provider Active Start: February 05, 2024 Paige Luther MD Emergency Provider Active Start: February 05, 2024 Sushant Cordon DO Admit Provider , Attending Provider Active Start: February 05, 2024 Team Status: Inactive Member Role Status Dates Marie Castro DO Primary Care Provider Active Start: February 05, 2024 End: February 08, 2024 Paige Luther MD Emergency Provider Active Start: February 05, 2024 End: February 08, 2024 Sushant Cordon DO Admit Provider Active Start: February 05, 2024 End: February 08, 2024 Manuel Wolff MD Other Provider Active Start : February 05, 2024 End: February 08, 2024 Warren Gross DO Attending Provider Active St art: February 05, 2024 End: February 08, 2024 Team Status: Active Member Role Status Dates Marie Castro DO Primary Care Provider Active Start: February 06, 2024 Paige Luther MD Emergency Provider Active Start: February 06, 2024 Sushant Cordon DO Admit Provider Active Start: February 06, 2024 Nayeli Jimenez MD Other Provider Active Sta rt: February 06, 2024 Chela Charles RN Other Provider Active Star t: February 06, 2024 Yves Han MD Other Provider Active Start: J diallo 2023 Chuck Velasco MD Other Provider Active Start: February 05 Anat Perez MD Other Provider Active Start: February 06, 2024 Lois Yen DO Other Provider Active Start: February 06, 2024 Manuel Wolff MD Attending Provider, Other Provider Active Start: February 06, 2024 Team Status: Active Member Role Status Dates Marie Castro DO Primary Care Provider Active Start: February 06, 2024 Paige Luther MD Emergency Provider Active Start: February 06, 2024 Sushant Cordon DO Admit Provider Active Start: February 06, 2024 Nayeli Jimenez MD Other Provider Active Sta rt: February 06, 2024 Chela Charles RN Other Provider Active Star t: February 06, 2024 Yves Han MD Other Provider Active Start: J diallo 2023 Chuck Velasco MD Attending Provider, Other Provider Active Start: February 06, 2024 Anat Perez MD Other Provider Active Start: February 06, 2024 Lois Yen DO Other Provider Active Start: February 06, 2024 Manuel Wolff MD Other Provider Active Start : February 06, 2024 Team Status: Inactive Member Role Status Dates Marie Castro DO Primary Care Provider Active Start: February 11, 2024 End: February 11, 2024 Warren Gross DO Attending Provider Active St art: February 11, 2024 End: February 11, 2024 Team Status: Inactive Member Role Status Dates Marie Castro DO Primary Care Provider Active Start: February 14, 2024 End: February 14, 2024 Warren Gross DO Attending Provider Active St art: February 14, 2024 End: February 14, 2024 Team Status: Inactive Member Role Status Dates Marie Castro DO Primary Care Provider Active Start: February 15, 2024 End: February 15, 2024 Anat Perez MD Attending Provider Active Sta rt: February 15, 2024 End: February 15, 2024 Team Status: Active Member Role Status Dates Marie Castro DO Primary Care Provider Active Start: February 15, 2024 Anat Perez MD Attending Provider Active Sta rt: February 15, 2024 Team Status: Inactive Member Role Status Dates Marie Castro DO Primary Care Provider Active Start: February 16, 2024 End: February 16, 2024 Anat Perez MD Attending Provider Active Sta rt: February 16, 2024 End: February 16, 2024 Warren Gross DO Other Provider Active Start: February 16, 2024 End: February 16, 2024 Team Status: Inactive Member Role Status Dates Marie Castro DO Primary Care Provider Active Start: February 29, 2024 End: February 29, 2024 Anat Perez MD Attending Provider Active Sta rt: February 29, 2024 End: February 29, 2024 Team Status: Active Member Role Status Dates Marie Castro DO Primary Care Provider Active Start: March 08, 2024 Anat Perez MD Attending Provider, Referring Provider Active Start: March 08, 2024 Team Status: Inactive Member Role Status Denis Castro DO Primary Care Provider Active Start: March 09, 2024 End: March 09, 2024 Anat Perez MD Attending Provider Active Sta rt: March 09, 2024 End: March 09, 2024 Team Status: Inactive Member Role Status Denis Castro DO Primary Care Provider Active Start: March 10, 2024 End: March 10, 2024 Anat Perez MD Attending Provider, Referring Provider Active Start: March 10, 2024 End: March 10, 2024 Team Status: Inactive Member Role Status Dates Marie Castro DO Primary Care Provider Active Start: March 15, 2024 End: March 15, 2024 Anat Perez MD Attending Provider Active Sta rt: March 15, 2024 End: March 15, 2024 Team Status: Active Member Role Status Denis Castro DO Primary Care Provider Active Start: March 09, 2024 Anat Perez MD Attending Provider, Other Provider Active Start: March 09, 2024 Team Status: Inactive Member Role Status Dates Marie Castro DO Primary Care Provider Active Start: March 27, 2024 End: March 27, 2024 Anat Perez MD Attending Provider Active Sta rt: March 27, 2024 End: March 27, 2024 Electrical Technology Instructor Relationship Specialty Start Date End Date Marie Castro DO [address] [place] [address] PCP - General Internal Medicine 01/08/23 Marie Castro DO [address] [place] [address] PCP - ACO Reach 09/10/23 Patrick Beard MD [address] [facility] [address] [place] [address] Referring Physician Gastroenterology 04/17/24 Andrey Grullon MD [address] [place] [address] Referring Physician Neurology 04/17/24 Saúl Davis MD [address] [facility] [address] [place] [address] Referring Physician Cardiology 04/17/24 Team Status: Active Member Role Status Dates Marie Castro DO Primary Care Provider Active Start: April 26, 2024 Abdulaziz Root MD Attending Provider Active Start: April 26, 2024 Team Status: Inactive Member Role Status Dates Marie Castro DO Primary Care Provider Active Start: April 26, 2024 End: April 26, 2024 Abdulaziz Root MD Attending Provider Active Start: April 26, 2024 End: April 26, 2024 Team Status: Inactive Member Role Status Dates Marie Castro DO Primary Care Provider Active Start: April 26, 2024 End: April 26, 2024 Anat Perez MD Attending Provider Active Sta rt: April 26, 2024 End: April 26, 2024 Electrical Technology Instructor Relationship Specialty Start Date End Date Marie Castro DO [address] [facility] [address] [place] [address] PCP - General Internal Medicine 01/08/23 Marie Castro DO [address] [facility] [address] [place] [address] PCP - ACO Reach 09/10/23 Patrick Beard MD [address] [facility] [address] [place], [place] [id number] Referring Physician Gastroenterology 04/17/24 Andrey Grullon MD [address] [facility] [address] [place] [address] Referring Physician Neurology 04/17/24 Saúl Davis MD [address] [facility] [address] [place] [address] Referring Physician Cardiology 04/17/24 Team Status: Inactive Member Role Status Dates Marie Castro DO Primary Care Provider Active Start: May 10, 2024 End: May 10, 2024 Anat Perez MD Attending Provider Active Sta rt: May 10, 2024 End: May 10, 2024 Team Status: Inactive Member Role Status Dates Marie Castro DO Primary Care Provider Active Start: May 16, 2024 End: May 16, 2024 Abdulaziz Root MD Attending Provider Active Start: May 16, 2024 End: May 16, 2024 Team Status: Active Member Role Status Dates Marie Castro DO Primary Care Provider Active Start: May 24, 2024 Abdulaziz Root MD Attending Provid er, Other Provider Active Start: May 24, 2024 Team Status: Inactive Member Role Status Dates Marie Castro DO Primary Care Provider Active Start: May 24, 2024 End: May 25, 2024 Abdulaziz Root MD Admit Provider, Attending Provider Active Start: May 24, 2024 End: May 25, 2024 Team Status: Active Member Role Status Denis Castro DO Primary Care Provider Active Start: May 25, 2024 Abdulaziz Root MD Admit Provider, Attending Provider, Other Provider Active Start: May 25, 2024 Team Status: Active Member Role Status Denis Castro DO Primary Care Provider Active Start: May 25, 2024 Abdulaziz Root MD Admit Provider, Other Provider Active Start: May 25, 2024 Chuck Velasco MD Attending Provider Active Start: May Electrical Technology Instructor Relationship Specialty Start Date End Date Marie Castro DO [address] [place] [address] PCP - General Internal Medicine 01/08/23 Marie Castro DO [address] [place] [address] PCP - ACO Reach 09/10/23 Patrick Beard MD [address] [facility] [address] [place], [place] [id number] Referring Physician Gastroenterology 04/17/24 Andrey Grullon MD [address] [place] [address] Referring Physician Neurology 04/17/24 Saúl Davis MD [address] [facility] [address] [place] [address] Referring Physician Cardiology 04/17/24 Electrical Technology Instructor Relationship Specialty Start Date End Date Marie Castro DO [address] [place] [address] PCP - General Internal Medicine 01/08/23 Marie Castro DO [address] [place] [address] PCP - ACO Reach 09/10/23 Patrick Beard MD [address] [facility] [address] [place] [address] Referring Physician Gastroenterology 04/17/24 Andrey Grullon MD [address] [place] [address] Referring Physician Neurology 04/17/24 Saúl Davis MD [address] [place] [address] [address] [place] [address] Referring Physician Cardiology 04/17/24 Electrical Technology Instructor Relationship Specialty Start Date End Date Marie Castro DO [address] [place] [address] PCP - General Internal Medicine 03/30/18 Anatoly Anne CNP [address] [place] [address] Referring Internal Medicine 04/26/24 Electrical Technology Instructor Relationship Specialty Start Date End Date Marie Castro DO [address] [place] [address] PCP - General Internal Medicine 03/30/18 Anatoly Anne CNP [address] [place] [address] Referring Internal Medicine 04/26/24 Electrical Technology Instructor Relationship Specialty Start Date End Date Marie Castro DO [address] [place] [address] PCP - General Internal Medicine 01/08/23 Marie Castro DO [address] [place] [address] PCP - ACO Reach 09/10/23 Patrick Beard MD [address] [id number] Referring Physician Gastroenterology 04/17/24 Andrey Grullon MD [address] [place] [address] Referring Physician Neurology 04/17/24 Saúl Davis MD [address] [place] [address] [address] [place] [address] Referring Physician Cardiology 04/17/24 Electrical Technology Instructor Relationship Specialty Start Date End Date Marie Castro DO [address] [place] [address] PCP - General Internal Medicine 01/08/23 Marie Castro DO [address] [place] [address] PCP - ACO Reach 09/10/23 Patrick Beard MD [address] [id number] Referring Physician Gastroenterology 04/17/24 Andrey Grullon MD [address] [place] [address] Referring Physician Neurology 04/17/24 Saúl Davis MD [address] [facility] [address] [place] [address] Referring Physician Cardiology 04/17/24 Electrical Technology Instructor Relationship Specialty Start Date End Date Marie Castro DO [address] [place] [address] PCP - General Internal Medicine 03/30/18 Anatoly Anne CNP [address] [place] [address] Referring Internal Medicine 04/26/24 Electrical Technology Instructor Relationship Specialty Start Date End Date Marie Castro DO [address] [place] [address] PCP - General Internal Medicine 03/30/18 Anatloy Anne CNP [address] [place] [address] Referring Internal Medicine 04/26/24 Team Status: Inactive Member Role Status Dates Marie Castro DO Primary Care Provider Active Start: June 16, 2024 End: June 18, 2024 Vargas Reis APRN Emergency Provider Active Start: June 16, 2024 End: June 18, 2024 Jose Alfredo Brantley MD Admit Provider, Atte nding Provider Active Start: June 16, 2024 End: June 18, 2024 Gray Higgins MD Other Provider Active Start: June 16, 2024 End: June 18, 2024 Team Status: Inactive Member Role Status Dates Marie Castro DO Primary Care Provider Active Start: June 19, 2024 End: June 21, 2024 Sushant Cordon DO Admit Provider , Attending Provider Active Start: June 19, 2024 End: June 21, 2024 Stephanie Sheridan DO Other Provider Active Sta rt: June 19, 2024 End: June 21, 2024 Beto Russo MD Other Provider Active Start: June 19, 2024 End: June 21, 2024 Thierno Corrales DO Other Provider Active Start: 2023 End: June 21, 2024 Team Status: Active Member Role Status Dates Marie Castro DO Primary Care Provider Active Start: June 20, 2024 Sushant Cordon DO Admit Provider , Other Provider Active Start: June 20, 2024 Stephanie Sheridan , DO Other Provider Active Sta rt: June 20, 2024 Beto Russo MD Other Provider Active Start: June 20, 2024 Thierno Corrales DO Other Provider Active Start: 2023 Abdulaziz Root MD Attending Provider Active Start: June 20, 2024 Team Status: Active Member Role Status Dates Marie Castro DO Primary Care Provider Active Start: July 16, 2024 Bretin Yepez DO Emergency Provider Active Start: July 16, 2024 Indar Guillory MD Admit Provide r, Attending Provider Active Start: July 16, 2024 Team Status: Inactive Member Role Status Dates Marie Castro DO Primary Care Provider Active Start: July 16, 2024 End: July 17, 2024 Bertin Yepez DO Emergency Provider Active Start: July 16, 2024 End: July 17, 2024 Indra Guillory MD Admit Provider Active Start: July 16, 2024 End: July 17, 2024 Lisa Hidalgo MD Attending Provider Active Star t: July 16, 2024 End: July 17, 2024 Team Status: Active Member Role Status Dates Marie Castro DO Primary Care Provider Active Start: July 17, 2024 Bertin Yepez DO Emergency Provider Active Start: July 17, 2024 Indra Guillory MD Admit Provider Active Start: July 17, 2024 Lisa Hdialgo MD Other Provider Active Start: J anuary 2024 Chuck Velasco MD Attending Provider Activ e Start: July 17, 2024 Electrical Technology Instructor Relationship Specialty Start Date End Date Marie Castro DO [address] [place] [address] PCP - General Internal Medicine 01/08/23 Marie Castro DO [address] [place] [address] PCP - ACO Reach 09/10/23 Patrick Beard MD [address] [address] Referring Physician Gastroenterology 04/17/24 Andrey Grullon MD [address] [place] [address] Referring Physician Neurology 04/17/24 Saúl Davis MD 703 [facility] [address] [place] [address] Referring Physician Cardiology 04/17/24 Electrical Technology Instructor Relationship Specialty Start Date End Date Marie Castro DO [address] [place] [address] PCP - General Internal Medicine 01/08/23 Marie Castro DO [address] [place] [address] PCP - ACO Reach 09/10/23 Patrick Beard MD 1 [facility] [address] [place] [address] Referring Physician Gastroenterology 04/17/24 Andrey Grullon MD [address] [place] [address] Referring Physician Neurology 04/17/24 Saúl Davis MD [address] [facility] [address] [place] [address] Referring Physician Cardiology 04/17/24 Electrical Technology Instructor Relationship Specialty Start Date End Date Marie Castro DO [address] [place] [address] PCP - General Internal Medicine 03/30/18 Anatoly Anne CNP [address] [place] [address] Referring Internal Medicine 04/26/24 Electrical Technology Instructor Relationship Specialty Start Date End Date Marie Castro DO [address] [place] [address] PCP - General Internal Medicine 03/30/18 Anatoly Anne CNP [address] [place] [address] Referring Internal Medicine 04/26/24 Electrical Technology Instructor Relationship Specialty Start Date End Date Marie Castro DO [address] [place] [address] PCP - General Internal Medicine 03/30/18 Anatoly Anne APRN.KALANI [address] [place] [address] Referring Internal Medicine 04/26/24 Team Status: Active Member Role Status Dates Marie Castro DO Primary Care Provider Active Start: August 29, 2024 Anat Perez MD Referring Provider Active Sta rt: August 29, 2024 Abdulaziz Root MD Attending Provid er, Other Provider Active Start: August 29, 2024 Electrical Technology Instructor Relationship Specialty Start Date End Date Marie Castro DO [address] [facility] [address] [place] [address] PCP - General Internal Medicine 01/08/23 Marie Castro DO [address] [facility] [address] [place] [address] PCP - ACO Reach 09/10/23 Patrick Beard MD 1 [facility] [address] [place] [address] Referring Physician Gastroenterology 04/17/24 Andrey Grullon MD [address] [place] [address] Referring Physician Neurology 04/17/24 Saúl Davis MD 703 [facility] [address] [place] [address] Referring Physician Cardiology 04/17/24 Team Status: Inactive Member Role Status Dates Marie Castro DO Primary Care Provider Active Start: August 31, 2024 End: August 31, 2024 Anat Perez MD Attending Provider Active Sta rt: August 31, 2024 End: August 31, 2024 Electrical Technology Instructor Relationship Specialty Start Date End Date Marie Castro DO [address] [facility] [address] [place] [address] PCP - General Internal Medicine 03/30/18 Anatoly Anne, AMADA.TUBE BENDER HAND [address] [place] [address] Referring Internal Medicine 04/26/24 Electrical Technology Instructor Relationship Specialty Start Date End Date Marie Castro DO [address] [place] [address] PCP - General Internal Medicine 03/30/18 Anatoly Anne, AMADA.TUBE BENDER HAND [address] [place] [address] Referring Internal Medicine 04/26/24 Electrical Technology Instructor Relationship Specialty Start Date End Date Marie Castro DO [address] [place] [address] PCP - General Internal Medicine 01/08/23 Marie Castro DO [address] [place] [address] PCP - ACO Reach 09/10/23 Patrick Beard MD 1 [facility] [address] [place] [address] Referring Physician Gastroenterology 04/17/24 Andrey Grullon MD [address] [place] [address] Referring Physician Neurology 04/17/24 Saúl Davis MD [address] [place] [address] [address] [place] [address] Referring Physician Cardiology 04/17/24 Electrical Technology Instructor Relationship Specialty Start Date End Date Marie Castro [address] [place] [address] PCP - General Internal Medicine 03/30/18 Anatoly Anne, SILK SPOOLER.TUBE BENDER HAND [address] [place] [address] Referring Internal Medicine 04/26/24 Electrical Technology Instructor Relationship Specialty Start Date End Date Marie CastroDO [address] [place] [address] PCP - General Internal Medicine 03/30/18 Anatoly Anne, SILK SPOOLER.TUBE BENDER HAND [address] [place] [address] Referring Internal Medicine 04/26/24 Electrical Technology Instructor Relationship Specialty Start Date End Date Marie CastroDO [address] [place] [address] PCP - General Internal Medicine 03/30/18 Anatoly Anne, SILK SPOOLER.TUBE BENDER HAND [address] [place] [address] Referring Internal Medicine 04/26/24 Electrical Technology Instructor Relationship Specialty Start Date End Date Marie Castro DO [address] [place] [address] PCP - General Internal Medicine 03/30/18 Anatoly Anne, SILK SPOOLER.TUBE BENDER HAND [address] [place] [address] Referring Internal Medicine 04/26/24 Electrical Technology Instructor Relationship Specialty Start Date End Date Marie Castro DO [address] [place] [address] PCP - General Internal Medicine 03/30/18 Anatoly Anne, SILK SPOOLER.TUBE BENDER HAND [address] [place] [address] Referring Internal Medicine 04/26/24 Electrical Technology Instructor Relationship Specialty Start Date End Date Marie CastroDO [address] [place] [address] PCP - General Internal Medicine 03/30/18 Anatoly Anne, SILK SPOOLER.TUBE BENDER HAND [address] [place] [address] Referring Internal Medicine 04/26/24 Electrical Technology Instructor Relationship Specialty Start Date End Date Marie Castro, DO [address] [place] [address] PCP - General Internal Medicine 03/30/18 Anatoly Anne, SILK SPOOLER.TUBE BENDER HAND [address] [place] [address] Referring Internal Medicine 04/26/24 Electrical Technology Instructor Relationship Specialty Start Date End Date Marie Castro, DO [address] [place] [address] PCP - General Internal Medicine 03/30/18 Anatoly Anne, SILK SPOOLER.TUBE BENDER HAND [address] [place] [address] Referring Internal Medicine 04/26/24 Electrical Technology Instructor Relationship Specialty Start Date End Date Marie Castro DO [address] [place] [address] PCP - General Internal Medicine 03/30/18 Anatoly Anne APRN.TUBE BENDER HAND [address] [place] [address] Referring Internal Medicine 04/26/24 Team Status: Inactive Member Role Status Dates Marie Castro DO Primary Care Provider Active Start: October 13, 2024 End: October 13, 2024 Anat Perez MD Attending Provider Active Sta rt: October 13, 2024 End: October 13, 2024 Electrical Technology Instructor Relationship Specialty Start Date End Date Marie Castro DO [address] [place] [address] PCP - General Internal Medicine 01/08/23 Marie Castro DO [address] [place] [address] PCP - ACO Reach 09/10/23 Patrick Beard MD 1 [facility] [address] [place] [address] Referring Physician Gastroenterology 04/17/24 Andrey Grullon MD [address] [place] [address] Referring Physician Neurology 04/17/24 Saúl Davis MD [address] [place] [address] Referring Physician Cardiology 04/17/24 Electrical Technology Instructor Relationship Specialty Start Date End Date Marie Castro DO [address] [place] [address] PCP - General Internal Medicine 03/30/18 Anatoly Anne, SILK SPOOLER.TUBE BENDER HAND [address] [place] [address] Referring Internal Medicine 04/26/24 Electrical Technology Instructor Relationship Specialty Start Date End Date aMrie Castro DO [address] [place] [address] PCP - General Internal Medicine 03/30/18 Anatoly Anne, SILK SPOOLER.TUBE BENDER HAND [address] [place] [address] Referring Internal Medicine 04/26/24 Team Status: Active Member Role Status Dates Marie Castro DO Primary Care Provider Active Start: November 30, 2024 Anat Perez MD Other Provider Active Start: November 30, 2024 Abdulaziz Root MD Attending Provider Active Start: November 30, 2024 Electrical Technology Instructor Relationship Specialty Start Date End Date Marie Castro DO [address] [place] [address] PCP - General Internal Medicine 03/30/18 Anatoly Anne, SILK SPOOLER.TUBE BENDER HAND [address] [place] [address] Referring Internal Medicine 04/26/24 Electrical Technology Instructor Relationship Specialty Start Date End Date Marie Castro DO [address] [place] [address] PCP - General Internal Medicine 03/30/18 Anatoly Anne, AMADA.TUBE BENDER HAND [address] [place] [address] Referring Internal Medicine 04/26/24 Electrical Technology Instructor Relationship Specialty Start Date End Date Marie Castro DO [address] [place] [address] PCP - General Internal Medicine 03/30/18 Anatoly Anne, AMADA.TUBE BENDER HAND [address] [place] [address] Referring Internal Medicine 04/26/24 Electrical Technology Instructor Relationship Specialty Start Date End Date Marie Castro DO [address] [place] [address] PCP - General Internal Medicine 01/08/23 Marie Castro DO [address] [place] [address] PCP - ACO Reach 09/10/23 Patrick Beard MD 1 [facility] [address] [place] [address] Referring Physician Gastroenterology 04/17/24 Andrey Grullon MD [address] [place] [address] Referring Physician Neurology 04/17/24 Saúl Davis MD 703 [facility] [address] [place] [address] Referring Physician Cardiology 04/17/24 Electrical Technology Instructor Relationship Specialty Start Date End Date Marie Castro DO [address] [place] [address] PCP - General Internal Medicine 01/08/23 Marie Castro DO [address] [place] [address] PCP - ACO Reach 09/10/23 Patrick Beard MD [address] [address] Referring Physician Gastroenterology 04/17/24 Andrey Grullon MD [address] [place] [address] Referring Physician Neurology 04/17/24 Saúl Davis MD 703 [facility] [address] [place] [address] Referring Physician Cardiology 04/17/24 Electrical Technology Instructor Relationship Specialty Start Date End Date Marie Castro DO [address] [place] [address] PCP - General Internal Medicine 01/08/23 Marie Castro DO [address] [place] [address] PCP - ACO Reach 09/10/23 Patrick Beard MD 1 [facility] [address] [place] [address] Referring Physician Gastroenterology 04/17/24 Andrey Grullon MD [address] [facility] [address] [place] [address] Referring Physician Neurology 04/17/24 Saúl Davis MD 703 [facility] [address] [place] [address] Referring Physician Cardiology 04/17/24 Team Status: Active Member Role Status Dates Marie Castro DO Primary Care Provider Active Start: March 02, 2025 Anat Perez MD Other Provider Active Start: March 02, 2025 Abdulaziz Root MD Attending Provider Active Start: March 02, 2025 Electrical Technology Instructor Relationship Specialty Start Date End Date Marie Castro DO [address] [facility] [address] [place] [address] PCP - General Internal Medicine 03/30/18 Anatoly Anne APRN.TUBE BENDER HAND [facility] W [facility] [address] [place] [address] Referring Internal Medicine 04/26/24 Team Status: Inactive Member Role Status Dates Marie Castro DO Primary Care Provider Active Start: March 27, 2025 End: March 27, 2025 Anat Perez MD Attending Provider Active Sta rt: March 27, 2025 End: March 27, 2025 Source Comments (unrecognize d section and content) In the event this informatio n is protected by the Federal Confidentiality of Alcohol and Drug Abuse Patient Records regulations: The Federal rules restrict any use of the information to criminally investigate or prosecute any alcohol or drug abuse patient.[facility] Center[facility] the event this information is protected by the Federal Confidentiality of Alcohol and Drug Abuse Patient Records regulations: The Federal rules restrict any use of the information to criminally investigate or prosecute any alcohol or drug abuse patient.[facility] CenterIn the event this information is protected by the Federal Confidentiality of Alcohol and Drug Abuse Patient Records regulations: The Federal rules restrict any use of the information to criminally investigate or prosecute any alcohol or drug abuse patient.[facility] CenterIn the event this information is protected by the Federal Confidentiality of Alcohol and Drug Abuse Patient Records regulations: The Federal rules restrict any use of the information to criminally investigate or prosecute any alcohol or drug abuse patient.[facility] CenterIn the event this information is protected by the Federal Confidentiality of Alcohol and Drug Abuse Patient Records regulations: The Federal rules restrict any use of the information to criminally investigate or prosecute any alcohol or drug abuse patient.[facility] CenterIn the event this information is protected by the Federal Confidentiality of Alcohol and Drug Abuse Patient Records regulations: The Federal rules restrict any use of the information to criminally investigate or prosecute any alcohol or drug abuse patient.[facility] CenterIn the event this information is protected by the Federal Confidentiality of Alcohol and Drug Abuse Patient Records regulations: The Federal rules restrict any use of the information to criminally investigate or prosecute any alcohol or drug abuse patient.[facility] CenterIn the event this information is protected by the Federal Confidentiality of Alcohol and Drug Abuse Patient Records regulations: The Federal rules restrict any use of the information to criminally investigate or prosecute any alcohol or drug abuse patient.[facility] CenterIn the event this information is protected by the Federal Confidentiality of Alcohol and Drug Abuse Patient Records regulations: The Federal rules restrict any use of the information to criminally investigate or prosecute any alcohol or drug abuse patient.[facility] CenterIn the event this information is protected by the Federal Confidentiality of Alcohol and Drug Abuse Patient Records regulations: The Federal rules restrict any use of the information to criminally investigate or prosecute any alcohol or drug abuse patient.[facility] CenterIn the event this information is protected by the Federal Confidentiality of Alcohol and Drug Abuse Patient Records regulations: The Federal rules restrict any use of the information to criminally investigate or prosecute any alcohol or drug abuse patient.[facility] CenterIn the event this information is protected by the Federal Confidentiality of Alcohol and Drug Abuse Patient Records regulations: The Federal rules restrict any use of the information to criminally investigate or prosecute any alcohol or drug abuse patient.[facility] CenterIn the event this information is protected by the Federal Confidentiality of Alcohol and Drug Abuse Patient Records regulations: The Federal rules restrict any use of the information to criminally investigate or prosecute any alcohol or drug abuse patient.[facility] CenterIn the event this information is protected by the Federal Confidentiality of Alcohol and Drug Abuse Patient Records regulations: The Federal rules restrict any use of the information to criminally investigate or prosecute any alcohol or drug abuse patient.[facility] CenterIn the event this information is protected by the Federal Confidentiality of Alcohol and Drug Abuse Patient Records regulations: The Federal rules restrict any use of the information to criminally investigate or prosecute any alcohol or drug abuse patient.[facility] CenterIn the event this information is protected by the Federal Confidentiality of Alcohol and Drug Abuse Patient Records regulations: The Federal rules restrict any use of the information to criminally investigate or prosecute any alcohol or drug abuse patient.[facility] CenterIn the event this information is protected by the Federal Confidentiality of Alcohol and Drug Abuse Patient Records regulations: The Federal rules restrict any use of the information to criminally investigate or prosecute any alcohol or drug abuse patient.[facility] CenterIn the event this information is protected by the Federal Confidentiality of Alcohol and Drug Abuse Patient Records regulations: The Federal rules restrict any use of the information to criminally investigate or prosecute any alcohol or drug abuse patient.[facility] CenterIn the event this information is protected by the Federal Confidentiality of Alcohol and Drug Abuse Patient Records regulations: The Federal rules restrict any use of the information to criminally investigate or prosecute any alcohol or drug abuse patient.[facility] CenterIn the event this information is protected by the Federal Confidentiality of Alcohol and Drug Abuse Patient Records regulations: The Federal rules restrict any use of the information to criminally investigate or prosecute any alcohol or drug abuse patient.[facility] CenterIn the event this information is protected by the Federal Confidentiality of Alcohol and Drug Abuse Patient Records regulations: The Federal rules restrict any use of the information to criminally investigate or prosecute any alcohol or drug abuse patient.[facility] CenterIn the event this information is protected by the Federal Confidentiality of Alcohol and Drug Abuse Patient Records regulations: The Federal rules restrict any use of the information to criminally investigate or prosecute any alcohol or drug abuse patient.[facility] CenterIn the event this information is protected by the Federal Confidentiality of Alcohol and Drug Abuse Patient Records regulations: The Federal rules restrict any use of the information to criminally investigate or prosecute any alcohol or drug abuse patient.[facility] CenterIn the event this information is protected by the Federal Confidentiality of Alcohol and Drug Abuse Patient Records regulations: The Federal rules restrict any use of the information to criminally investigate or prosecute any alcohol or drug abuse patient.[facility] CenterIn the event this information is protected by the Federal Confidentiality of Alcohol and Drug Abuse Patient Records regulations: The Federal rules restrict any use of the information to criminally investigate or prosecute any alcohol or drug abuse patient.[facility] CenterIn the event this information is protected by the Federal Confidentiality of Alcohol and Drug Abuse Patient Records regulations: The Federal rules restrict any use of the information to criminally investigate or prosecute any alcohol or drug abuse patient.[facility] CenterIn the event this information is protected by the Federal Confidentiality of Alcohol and Drug Abuse Patient Records regulations: The Federal rules restrict any use of the information to criminally investigate or prosecute any alcohol or drug abuse patient.[facility] CenterIn the event this information is protected by the Federal Confidentiality of Alcohol and Drug Abuse Patient Records regulations: The Federal rules restrict any use of the information to criminally investigate or prosecute any alcohol or drug abuse patient.[facility] CenterIn the event this information is protected by the Federal Confidentiality of Alcohol and Drug Abuse Patient Records regulations: The Federal rules restrict any use of the information to criminally investigate or prosecute any alcohol or drug abuse patient.[facility] CenterIn the event this information is protected by the Federal Confidentiality of Alcohol and Drug Abuse Patient Records regulations: The Federal rules restrict any use of the information to criminally investigate or prosecute any alcohol or drug abuse patient.[facility] CenterIn the event this information is protected by the Federal Confidentiality of Alcohol and Drug Abuse Patient Records regulations: The Federal rules restrict any use of the information to criminally investigate or prosecute any alcohol or drug abuse patient.[facility] CenterIn the event this information is protected by the Federal Confidentiality of Alcohol and Drug Abuse Patient Records regulations: The Federal rules restrict any use of the information to criminally investigate or prosecute any alcohol or drug abuse patient.[facility] CenterIn the event this information is protected by the Federal Confidentiality of Alcohol and Drug Abuse Patient Records regulations: The Federal rules restrict any use of the information to criminally investigate or prosecute any alcohol or drug abuse patient.[facility] CenterIn the event this information is protected by the Federal Confidentiality of Alcohol and Drug Abuse Patient Records regulations: The Federal rules restrict any use of the information to criminally investigate or prosecute any alcohol or drug abuse patient.[facility] CenterIn the event this information is protected by the Federal Confidentiality of Alcohol and Drug Abuse Patient Records regulations: The Federal rules restrict any use of the information to criminally investigate or prosecute any alcohol or drug abuse patient.[facility] CenterIn the event this information is protected by the Federal Confidentiality of Alcohol and Drug Abuse Patient Records regulations: The Federal rules restrict any use of the information to criminally investigate or prosecute any alcohol or drug abuse patient.[facility] CenterIn the event this information is protected by the Federal Confidentiality of Alcohol and Drug Abuse Patient Records regulations: The Federal rules restrict any use of the information to criminally investigate or prosecute any alcohol or drug abuse patient.[facility] CenterIn the event this information is protected by the Federal Confidentiality of Alcohol and Drug Abuse Patient Records regulations: The Federal rules restrict any use of the information to criminally investigate or prosecute any alcohol or drug abuse patient.[facility] Goals (unrecognized section and content) Goals may be documented in a n alternate section FOR RECORDS PERTAINING TO PATIENTS WHO ARE [...] BE BASED ON THE PRIMARY CLINICAL RECORDS. [facility]. provides no warranty or guarantee of the accuracy or completeness of information in this document.
[2025-04-02 12:22] LABS: Alanine Aminotransferase 112 U/L (16-63); Albumin Globulin Ratio 0.9; Albumin Level 3.2 g/dL (3.4-5.0); Alkaline Phosphatase 207 U/L (46-116); Anion Gap 11.7; Aspartate Amino Transferase 196 U/L (15-37); Blood Urea Nitrogen 73.0 mg/dL (7.0-18.0); Calcium 8.2 mg/dL (8.5-10.1); Carbon Dioxide 29.0 mmol/L (21.0-32.0); Chloride 93 mmol/L (98-107); Estimated GFR (African America 30 (>=60 mL/min/1.73m^2); Estimated GFR (Non-African Ame 25 (>=60 mL/min/1.73m^2); Globulin 3.7 g/dL; Potassium 4.7 mmol/L (3.5-5.1); Sodium 129 mmol/L (136-145); Total Protein 6.9 g/dL (6.4-8.2)
[2025-04-02 12:30] LABS: Glucose 581 mg/dL (74-106); NT Pro B Type Natriuretic Pept 8588.0 pg/mL (<=1800.0)
[2025-04-02 14:00] LABS: Hematocrit 34.2 % (42.0-54.0); Hemoglobin 11.5 g/dL (14.0-18.0); Immature Granulocytes Abs Auto 0.01 10^3/uL (0.00-0.03); Immature Granulocytes Pct Auto 0.2 % (0.0-0.5); Lymphocytes Absolute Auto 0.9 10^3/uL (1.2-3.8); Mean Corpuscular HGB Conc 33.6 g/dL (29.9-35.2); Mean Corpuscular Hemoglobin 29.4 pg (25.9-34.0); Mean Corpuscular Volume 87.5 fL (80.0-94.0); Platelet Count 116 10^3/uL (150-450); Red Blood Count 3.91 10^6/uL (4.70-6.10); White Blood Count 5.4 10^3/uL (4.0-11.0)
== END 2025-04-02 11:36 | disposition home or self-care (01) ==
PROVIDERS: PCP Internal Medicine; Visit Provider Internal Medicine
DX: I25.10 Atherosclerotic heart disease of native coronary artery without angina pectoris (principal); I25.5 Ischemic cardiomyopathy; R06.00 Dyspnea, unspecified
CPT/HCPCS: 36415; 80053; 83880; 85025

== ENCOUNTER 2025-04-09 22:01 | Inpatient (IN) | payer MEDICARE, OTHER, SELFPAY ==
--- OUTSIDE RECORDS SUMMARY | 2025-04-09 13:08 | XMS_ITS ---
Author Name Auto Generated Organization OHIP Support Name Relationship Address Phone Luis Angel Vickers Next of Kin [address] [place] [address], [place] [address] + [place] [address] [phone] LUIS ANGEL VICKERS Next of Kin Unknown + LUIS ANGEL VICKERS Next of Kin Unknown + LUIS ANGEL VICKERS Next of Kin Unknown + Luis Angel Vickesr Next of Kin [address] [place] [address], [place] [address] + [place] [address] [phone] LUIS ANGEL VICKERS Next of Kin Unknown + Luis Angel Vickers Next of Kin [address] [place] [phone] + Rancho, [place] [address] +[phone] LUIS ANGEL VICKERS Next of Kin Unknown + Luis Angel Vickers Next of Kin [address] [place] [address], [place] [address] + Saú[place] [address] +[phone] LUIS ANGEL VICKERS Next of Kin Unknown + LUIS ANGEL VICKERS Next of Kin Unknown + Luis Angel Vickers Next of Kin [address] [place] [address] + [place] [address] +[phone] SBERNA, LUIS ANGEL Next of Kin Unknown + Sberna, Luis Angel Monsivais Next of Kin [address] [place] [phone] + Sberamilcar, [place] [address] +[phone] SBERNA, LUIS ANGEL Next of Kin Unknown + Sberna, Luis Angel Monsivais Next of Kin [address] [place] [address] + Sberna, [place] [address] +[phone] Sberna, Luis Angel Monsivais Next of Kin [address] [place] [address] + Sberamilcar, [place] [address] +[phone] Sberamilcar, Luis Angel Monsivais Next of [address] [address] + Sberamilcar, [place] [address] +[phone] SBERAMILCAR, LUIS ANGEL Next of Kin Unknown + SBERAMILCAR, LUIS ANGEL Next of Kin Unknown + Care Team Providers Care Supervisor Type Photography Name Role Phone MARIE CASTRO Attending Unavailable MARIE CASTRO Attending Unavailable MARIE CASTRO Referring Unavailable MARIE CASTRO Attending Unavailable MARIE CASTRO Referring Unavailable MARIE CASTRO Attending Unavailable MARIE CASTRO Attending Unavailable MARIE CASTRO Referring Unavailable MARIE CASTRO Attending Unavailable ALFA GARCIA Attending Unavailable STEPHANIE SHERIDAN Attending Unavailable MARIE CASTRO Referring Unavailable YOMI CHONG Attending Unavailable MARIE CASTRO Referring Unavailable Marie Castro Primary Care Unavailable Ivett, Soufijae Admitting Unavailable AlmAbdulaziz perez Attending Unavailable Jose Alfredo Brantley Admitting Unavailable Jose Alfredo Brantley Attending Unavailable Gray Higgins Unavailable Marie Castro Primary Care Unavailable Marie Castro Primary Care Unavailable Almgilmaameed, Soufijae Admitting Unavailable Almahscar, Abdulaziz Attending Unavailable DoamekporIndra E Admitting Unavailab Chela Estevez Consulting Unavailable Lisa Hidalgo Attending Unavailable Matthew [place] Primary Care Unavailable Yves Han Consulting Unavailable Chuck Velasco Consulting Unasebastian Perez, Anat Consulting Unavailable Sushant Cordon Admitting UnavailSushant Seo Attending Unavailgregor Sheridan, Stephanie Consulting Unavailable Matthew, [place] Primary Care Unavailable Alfa Russo Consulting Unavailable Thierno Corrales Consulting Unavailable Matthew Marie Primary Care Unavailable Almahameed, Asadan Admitting Unavailable Almahameed, Abdulaziz Attending Unavailable Matthew Marie Primary Care Unavailable AnaAnat pagan Attending Unavailable AnaAnat pagan Admitting Unavailable Ana, Anat Admitting Unavailable Anat Perez Attending Unavailable Matthew [facility] Care Unavailable Anat Perez Referring Unavailable Almahameed, Abdulaziz Attending Unavailable Almahameed, Sammifian Admitting Unavailable [facility] Care Unavailable VASCHABrody, [facility] Unavailab JESSI Dudley Attending Unavailable VASSIENNA [facility] Unavailab le MATTHEW [facility] Unavailab timmy CASTRO [facility] Unavailab JESSI Dudley Attending Unavailable STALIN ALAMO Referring Unavailable MATTHEW, [facility] Unavailab JESSI Dudley Attending Unavailable MATTHEW [facility] Unavailab JESSI Dudley Referring Unavailable [facility] Unavailab JESSI Dudley Attending Unavailable MATTHEW [facility] Unavailab JESSI Dudley Referring Unavailable PROBLEMS DATE TYPE CONDITION / CODE ATTENDING STATUS [facility] 04/09/2025 Active Hypoglycemia steffanie wareness associated with type 1 diabetes mellitus (HCC) / E10.649(ICD-10) JESSI ZAVALA Active [facility] 04/09/2025 Active Insulin pump sta tus / Z96.41(ICD-10) JESSI ZAVALA Active [facility] 03/02/2025 Unknown Encounter for ad justment and management of automatic implantable cardiac defibrillator / Z45.02(ICD-10) Anat Perez [facility] 10/26/2024 Active High Blood Sugar / UNK(Unknown) JESSI ZAVALA [facility] 09/25/2024 Active 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, with long-term current use of insulin (HCC) / E10.59(ICD-10) JESSI ZAVALA [facility] 07/16/2024 Unknown Heart failure, unspecified / I50.9(ICD-10) [facility] 07/16/2024 Unknown Pleurodynia / R07.81(ICD-10) [facility] 07/16/2024 Unknown Type 1 diabetes mellitus without complications / E10.9(ICD-10) [facility] 07/16/2024 Unknown Atherosclerotic heart disease of [place] coronary artery without angina pectoris / I25.10(ICD-10) [facility] 07/16/2024 Unknown 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 / J44.1(ICD-10) [facility] 06/16/2024 Unknown Cutaneous absces s of abdominal wall / L02.211(ICD-10) [facility] Bradycardia, uns pecified / R00.1(ICD-10) [facility] Iron deficiency / E61.1(ICD-10) [facility] Ischemic cardiom yopathy / I25.5(ICD-10) [facility] Unknown Non-ST elevation (NSTEMI) myocardial infarction / I21.4(ICD-10) [place] 05/24/2024 Unknown 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 Author Type: Nurse Practitioner Type: Progress Notes Filed: 04/09/2025 14:53 Note Text: Endocrinology Follow Up History of Present Illness Ashwini Vickers is a 89 year old male presents today for follow up of DM Type 1. Here with . At [facility] 10/2024, basal rate was reduced overnight. He continues to have very elevated blood sugars while on the pump. He has continued to have issues with obtaining his supplies. He has been off his pump for a few days as pharmacy could not fill as they keep falling off. He has not taken Lantus and is using Novolog only instead. admits he is not using Novolog consistently. He continues to have polyuria and polydipsia along with significant fatigue. He was called from his [employer] operations intelligence officer's office after receiving labwork and BG was >500. recalls he is not bolusing consistently and will ignore his Omnipod alarms at times. Patient recalls being consistent with his Novolog and Lantus injections when he was on these. 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 Per patient, this was done due to [...] cardiology Current DM Related Medications: Current Medications 04/09/2025 DIABETES THERAPIES Medication Dosage Pharm Subclass dapagliflozin [...] Salicylate Analgesics OTHER Medication Dosage Pharm Subclass Blood-Glucose Sensor ([employer] G7 SENSOR) delfin Change every 10 days. Medical Supplies and DME - Glucose Monitoring Test Supplies cetirizine (ZYRTEC) 10 mg tablet Take 10 [...] needed. Agents to treat Hypoglycemia (Hyperglycemics) Insulin [place], Disposable, (BD ULTRA-FINE ROSALVA PEN NEEDLE) 32 gauge x 5/32 Use with insulin once daily in case of pump failure Medical Supplies and DME - Insulin [place]-Syringes and Admin Supplies insulin pump cart,auto,BT,G6/7 (OMNIPOD 5 G6-G7 PODS, GEN 5,) crtg Change every 72 hours. Medical Supply, FDB Superset Lactobac no.41/Bifidobact no.7 (PROBIOTIC-10 ORAL) Take by mouth once daily. Intestinal Chayo Modifiers hbkteh-ecmybmrg-fnmvvqg (CREON) 24,000-76,000 -120,000 unit cpDR Take 2 capsules by mouth three times daily with meals. and 1 with snacks (8/day) Digestive Enzyme Mixtures lutein-zeaxanthin 25-5 mg cap Take by mouth once daily. Alternative Therapy - Antioxidant Omeprazole Magnesium 20 mg tablet Take 20 mg by mouth. Gastric Acid Secretion Edge Bonder - Proton Pump Inhibitors (PPIs) PARoxetine (PAXIL) 40 mg tablet Take 40 mg by mouth every morning. Antidepressant - Selective Serotonin Reuptake Inhibitors (SSRIs) tamsulosin (FLOMAX) 0.4 mg Take 0.4 mg by mouth. Prostatic Hypertrophy Agent - xbthf-6-Ruyfcsjmaemb Antagonists Physical Activity: No formal program Diet: CHO Controlled Diet SMBG Interpretation: Significant hyperglycemia, especially while out of Automated Mode, due to lack of consistent bolusing. Pump Settings: Omnipod 5 Basal 12am 0.4 8am 0.5 ICR 12am 15 ISF 12am 60 BG Correction Threshold 12am 150 BG Target 12am 150 Past History, Medications, Allergies No past medical history on file. PAST SURGICAL HISTORY Procedure Laterality Date APPENDECTOMY HX BACK SURGERY HX TONSILLECTOMY HX ALLERGIES No Known Allergies No family history on file. Social History Tobacco Use Smoking status: Former Current packs/day: 0.00 Types: Cigarettes Quit date: 03/15/2018 Years since quittin.0 Smokeless tobacco: Never Substance Use Topics Alcohol use: Yes Comment: social use Drug use: No Review of Systems GENERAL: No weight loss, malaise or fevers RESPIRATORY: Negative for cough, hemoptysis, wheezing, COPD, dyspnea or shortness of breath CARDIOVASCULAR: Negative for chest pain, leg swelling, CHF or palpitations GI: No nausea, vomiting, or diarrhea ENDOCRINE: +polyuria, +polydipsia NEUROLOGIC:Negative for focal numbness or weakness, headaches and dizziness or syncope. Physical examination BP 162/86 (BP Site: Left Arm, BP Position: Sitting, BP Cuff Size: Regular Adult) Pulse 60 Wt 62.9 kg (138 lb 10.7 oz) BMI 19.90 kg/m? 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 RECOMMENDATIONS: 1. Glycemic control: Target HbA1C is less than 7.0% per ADA guidelines. This patient is not at target. HbA1c is pending from this AM. Continues to have significant hyperglycemia due to not being in Automated Mode consistently and lack of regular carbohydrate entry. While in closed loop, his settings seem sufficient, however his time out of Automated Mode and missed boluses are negatively impacting his glycemic control. He is having significant symptoms of hyperglycemia and is at high risk for diabetic ketoacidosis. We discussed at length today regarding importance of blood sugar control and risk acute and chronic complications, including hospitalization, if blood sugar is not better managed. I have concerns for his safety remaining on the insulin pump. Will resume insulin injections and monitor control on MDI after one month. Patient and are agreeable with this plan. There is consideration for iLet as this would provide consistent insulin delivery even in the setting of missed boluses. Will have him meet with CDE prior to next visit. Plan Stop Omnipod pump Start: Lantus 12 units daily Novolog 4 units [...] sugars less than 70 Follow up in 4 weeks with CDE and me Patient to continue to follow up with [...] coronary heart disease LDL Cholesterol Calculated, Nonfasting Date Value Ref Range Status 09/25/2024 [...] of this document that has been added/copied AND pasted from other documents has been reviewed for accuracy and updated as appropriate at the time of the patient encounter Jessi Zavala APRN.KALANI (Signed electronically to expedite mailing) CNOV Observed: 04/09/2025 2:00 PM Status: COMPLETED Source: [facility] Office Visit (ENDOLN) ASHWINI VICKERS ([id number]) 1935 M Date Time Provider Department 04/09/25 2:00 PM JESSI ZAVALA During your visit today, we recorded the following information about you: Pulse Blood pressure Weight 60/minute 162/86 62.9 kg Jessi Zavala APRN.CNP 04/09/2025 2:53 PM Signed Endocrinology Follow Up History of Present Illness Ashwini Vickers is a 89 year old male presents today for follow up of DM Type 1. Here with . At [facility] 10/2024, basal rate was reduced overnight. He continues to have very elevated blood sugars while on the pump. He has continued to have issues with obtaining his supplies. He has been off his pump for a few days as pharmacy could not fill as they keep falling off. He has not taken Lantus and is using Novolog only instead. admits he is not using Novolog consistently. He continues to have polyuria and polydipsia along with significant fatigue. He was called from his [employer] operations intelligence officer's office after receiving labwork and BG was >500. recalls he is not bolusing consistently and will ignore his Omnipod alarms at times. Patient recalls being consistent with his Novolog and Lantus injections when he was on these. 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 Per patient, this was done due to [...] cardiology Current DM Related Medications: Current Medications 04/09/2025 DIABETES THERAPIES Medication Dosage Pharm Subclass dapagliflozin [...] Salicylate Analgesics OTHER Medication Dosage Pharm Subclass Blood-Glucose Sensor (DEXCOM G7 SENSOR) delfin Change every 10 days. Medical Supplies and DME - Glucose Monitoring Test Supplies cetirizine (ZYRTEC) 10 mg tablet Take 10 [...] needed. Agents to treat Hypoglycemia (Hyperglycemics) Insulin [place], Disposable, (BD ULTRA-FINE ROSALVA PEN NEEDLE) 32 gauge x /32 Use with insulin once daily in case of pump failure Medical Supplies and DME - Insulin [place]-Syringes and Admin Supplies insulin pump cart,auto,BT,G6/7 (OMNIPOD 5 G6-G7 PODS, GEN 5,) crtg Change every 72 hours. Medical Supply, FDB Superset Lactobac no.41/Bifidobact no.7 (PROBIOTIC-10 ORAL) Take by mouth once daily. Intestinal Chayo Modifiers dplnwv-pysjxdpv-fjwptqr (CREON) 24,000-76,000 -120,000 unit cpDR Take 2 capsules by mouth three times daily with meals. and 1 with snacks (8/day) Digestive Enzyme Mixtures lutein-zeaxanthin 25-5 mg cap Take by mouth once daily. Alternative Therapy - Antioxidant Omeprazole Magnesium 20 mg tablet Take 20 mg by mouth. Gastric Acid Secretion Edge Bonder - Proton Pump Inhibitors (PPIs) PARoxetine (PAXIL) 40 mg tablet Take 40 mg by mouth every morning. Antidepressant - Selective Serotonin Reuptake Inhibitors (SSRIs) tamsulosin (FLOMAX) 0.4 mg Take 0.4 mg by mouth. Prostatic Hypertrophy Agent - evtmg-5-Idijnmgiuzze Antagonists Physical Activity: No formal program Diet: CHO Controlled Diet SMBG Interpretation: Significant hyperglycemia, especially while out of Automated Mode, due to lack of consistent bolusing. Pump Settings: Omnipod 5 Basal 12am 0.4 8am 0.5 ICR 12am 15 ISF 12am 60 BG Correction Threshold 12am 150 BG Target 12am 150 Past History, Medications, Allergies No past medical history on file. PAST SURGICAL HISTORY Procedure Laterality Date APPENDECTOMY HX BACK SURGERY HX TONSILLECTOMY HX ALLERGIES No Known Allergies No family history on file. Social History Tobacco Use Smoking status: Former Current packs/day: 0.00 Types: Cigarettes Quit date: 03/15/2018 Years since quittin.0 Smokeless tobacco: Never Substance Use Topics Alcohol use: Yes Comment: social use Drug use: No Review of Systems GENERAL: No weight loss, malaise or fevers RESPIRATORY: Negative for cough, hemoptysis, wheezing, COPD, dyspnea or shortness of breath CARDIOVASCULAR: Negative for chest pain, leg swelling, CHF or palpitations GI: No nausea, vomiting, or diarrhea ENDOCRINE: +polyuria, +polydipsia NEUROLOGIC:Negative for focal numbness or weakness, headaches and dizziness or syncope. Physical examination BP 162/86 (BP Site: Left Arm, BP Position: Sitting, BP Cuff Size: Regular Adult) Pulse 60 Wt 62.9 kg (138 lb 10.7 oz) BMI 19.90 kg/m? 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 RECOMMENDATIONS: 1. Glycemic control: Target HbA1C is less than 7.0% per ADA guidelines. This patient is not at target. HbA1c is pending from this AM. Continues to have significant hyperglycemia due to not being in Automated Mode consistently and lack of regular carbohydrate entry. While in closed loop, his settings seem sufficient, however his time out of Automated Mode and missed boluses are negatively impacting his glycemic control. He is having significant symptoms of hyperglycemia and is at high risk for diabetic ketoacidosis. We discussed at length today regarding importance of blood sugar control and risk acute and chronic complications, including hospitalization, if blood sugar is not better managed. I have concerns for his safety remaining on the insulin pump. Will resume insulin injections and monitor control on MDI after one month. Patient and are agreeable with this plan. There is consideration for iLet as this would provide consistent insulin delivery even in the setting of missed boluses. Will have him meet with CDE prior to next visit. Plan Stop Omnipod pump Start: Lantus 12 units daily Novolog 4 units [...] sugars less than 70 Follow up in 4 weeks with CDE and me Patient to continue to follow up with [...] coronary heart disease LDL Cholesterol Calculated, Nonfasting Date Value Ref Range Status 09/25/2024 [...] of this document that has been added/copied AND pasted from other documents has been reviewed for accuracy and updated as appropriate at the time of the patient encounter Jessi Zavala APRN.KALANI (Signed electronically to expedite mailing) Jessi Zavala APRN.CNP 04/09/2025 2:38 PM Signed Plan Stop Omnipod pump Start: Lantus 12 units daily Novolog 4 units [...] sugars less than 70 Follow up in 4 weeks Allergies As of Date: 04/09/2025 (No Known Allergies) Date Reviewed: 04/09/2025 Reviewed by: Jessi Zavala APRN.APPLIED PSYCHOLOGY CHAIR - Fully Assessed Reason for Visit: Diabetes [34] Primary Visit Diagnosis: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, with long-term current use of insulin (HCC) [E10.59] Other Visit Diagnoses: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) [E10.649] Insulin pump status [Z96.41] Order(s):insulin glargine (LANTUS SOLOSTAR U-100 INSULIN) 100 unit/mL (3 mL)Inject 12 Units subcutaneously daily at bedtime.Disp: 15 mLRfl: 3 insulin aspart U-100 (NOVOLOG FLEXPEN U-100 INSULIN) 100 unit/mL (3 mL) penInject 4 units with meals plus sliding scale (Max daily dose of 30 units daily)Disp: 30 mLRfl: 3 Insulin [place], Disposable, (BD ULTRA-FINE ROSALVA PEN NEEDLE) 32 gauge x 5/32 Use four times daily with insulin pensDisp: 400 eachRfl: 3 CONSULT TO DIABETES EDUCATION DSME [[id number]] Order #: [id number]: 2 FUTURE Prescriptions as of 04/09/2025 - insulin glargine (LANTUS SOLOSTAR U-100 INSULIN) 100 unit/mL (3 mL) Inject 12 Units subcutaneously daily at bedtime. - insulin aspart U-100 (NOVOLOG FLEXPEN U-100 INSULIN) 100 unit/mL (3 mL) pen Inject 4 units with meals plus sliding scale (Max daily dose of 30 units daily) - Insulin [place], Disposable, (BD ULTRA-FINE ROSALVA PEN NEEDLE) 32 gauge x 5/32 Use four times daily with insulin pens - Blood-Glucose Sensor (DEXCOM G7 SENSOR) delfin Change every 10 days. - insulin pump cart,auto,BT,G6/7 (OMNIPOD 5 G6-G7 PODS, GEN 5,) crtg Change every 72 hours. - insulin aspart U-100 (NOVOLOG U-100 INSULIN ASPART) 100 unit/mL ADMINISTER PER PUMP (MAX DAILY 75 UNITS) - spironolactone (ALDACTONE) 25 mg tablet Take [...] Inject 1 mg subcutaneously as needed. - xtracp-vifvqriv-rtizsdu (CREON) 24,000-76,000 -120,000 unit cpDR Take 2 [...] once daily. 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 Route: SQ Sig: Inject 12 Units subcutaneously daily at bedtime. INSULIN ASPART (U-100) 100 UNIT/ML (* 30 mL 3 04/09/2025 Sig: Inject 4 units with meals plus sliding scale (Max daily dose of 30 units daily) PEN NEEDLE, DIABETIC 32 GAUGE X 5/32 400 * 3 04/09/2025 Sig: Use four times daily with insulin pens Medications Discontinued During This Encounter Prescriptions - dapagliflozin propanediol (FARXIGA) 10 mg tablet (Discontinued) Reported on 04/09/2025 - insulin glargine (LANTUS SOLOSTAR U-100 INSULIN) 100 unit/mL (3 mL) (Discontinued) Inject 12 Units subcutaneously daily at bedtime. For use in case of pump failure - Insulin [place], Disposable, (BD ULTRA-FINE ROSALVA PEN NEEDLE) 32 gauge x 5/32 (Discontinued) Use with insulin once daily in case of pump failure Disposition: Return in about 4 weeks (around 05/07/2025). Follow-up and Disposition History for Encounter Date Provider Department Center 04/09/2025 [id number] ZAVALA [facility] Encounter Status:Closed by JESSI ZAVALA on 04/09/25 GLUCOSE P FAST SERPL-MCNC Collected: 9:56 AM Status: F Source: [facility] Order Comment: Specimen Type : BLOOD SPECIMEN Ordering Facility: [facility] Address: [address] [place] [address] TYPE CODE TESTS RESULT OUT OF RANGE REFERENCE UNITS LAB 1558-6([facility]) Glucose p fast SerPl-mCnc 751 High 74-99 mg/dL Result Comment: [place] [employer] guidelines state that a diabetes mellitus diagnosis is preliminarily made when the fasting plasma glucose meets or exceeds 126 mg/dL. In the absence of unequivocal hyperglycemia, results should be confirmed with repeat testing. Patients are at increased risk for diabetes mellitus (prediabetes) when the fasting glucose is 100 to 125 mg/dL. Performed By: #### [id number] ## ## [facility] CLIA [id number] [address] [place] [address] [place] CNPN Observed: 02/05/2025 12:00 AM Status: COMPLETED Source: [facility] Telephone (ENDOLN) ASHWINI VICKERS ([id number]) 1935 M Date Time Provider Department 02/05/25 JESSI ZAVALA ENDOLN During your visit today, we recorded the following information about you: Jessi Zavala APRN.CNP 02/05/2025 11:17 AM Signed Medicare requires a [...] result received Copy made and placed on Jessi's desk And copy sent to Buffy Roche MA 02/15/2025 10:09 AM Signed [facility] [place] Part B Insulin RX form completed and faxed Confirmation received Allergies As of Date: 02/05/2025 (No Known Allergies) Date Reviewed: 10/26/2024 Reviewed by: Jessi Zavala APRN.CNP - Fully Assessed Reason for Visit: Legal [facility] form [Other] Primary Visit Diagnosis: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 - lojrra-bfyalmah-tqufyav (CREON) 24,000-76,000 -120,000 unit cpDR Take 2 [...] papillary mucinous neoplasm) *06/23/2018 Encounter Status:Closed by JESSI ZAVALA on 02/05/25 CT ANGIOGRAM CHEST Observed: 01/16/2025 11:15 AM Status: F Source: [facility] CLINICAL HISTORY: Chest pain . Technique: Spiral CTA acquisition of the chest [...] hydronephrosis. ELECTRONICALLY SIGNED BY: Howard Mae MD XR CHEST 2 VIEWS Observed: 01/02/2025 12:20 PM Status: F Source: [facility] TITLE OF EXAM: XR CHEST 2 EWS REASON FOR EXAM: Left pleuritic pain TECHNIQUE: [...] signed in approved by the interpreting radiologist. JEVON Observed: 12/19/2024 12:00 AM Status: COMPLETED Source: [facility] Telephone (ENDOLN) ASHWINI VICKERS ([id number]) 1935 M Date Time Provider Department 12/19/24 JESSI ZAVALA During your visit today, we recorded the following information about you: Sharonda Felipe 12/19/2024 12:07 PM Signed Pt needs refill on sensors. Do not see on current med list. Pt uses [facility] pharmacy in [facility]. Insurance is not going to pay for this until 01/03. Spouse is requesting to speak to a nurse about getting an alternative until then. Please review and advise. Patient has been identified by name and birthdate. Duration of symptoms: N/A Person calling: self Call patient at: on cell [phone] (cell) Was an appointment scheduled: No Closing statement: Results or non-symptom based questions: Thank you for calling [facility], your call will be returned within the next business day. Jessi Hess APRN.KALANI 12/25/2024 8:04 AM Addendum Rx sent however [facility], are they still having issues obtaining from there? Sandra Peguero LPN 12/27/2024 11:08 AM Signed Spoke to pharmacy, the sensors are ready for strip picker. Relayed message to patient's . She states that they do usually receive sensors from [facility] but they are having issues receiving them. The patient uses more that prescribed and paid for by insurance because they fall out. She will strip picker those at pharmacy , if there are any further issues she will contact our office. Allergies As of Date: 12/19/2024 (No Known Allergies) Date Reviewed: 10/26/2024 Reviewed by: Jessi Zavala APRN.APPLIED PSYCHOLOGY CHAIR - Fully Assessed Reason for Visit: Refill [...] PUMP (MAX DAILY 75 UNITS) - Insulin Wappapello, Disposable, (BD ULTRA-FINE ROSALVA PEN NEEDLE) 32 [...] Inject 1 mg subcutaneously as needed. - mhdzfh-gurpnvui-aztpcpb (CREON) 24,000-76,000 -120,000 unit cpDR Take 2 [...] ordered this encounter Disp Refills Start End DEXCOM G7 SENSOR DEVICE 3 ea* 0 12/25/2024 Sig: Change every 10 days. Encounter Status:Closed by JESSI ZAVALA on 12/25/24 CNOV Observed: 10/26/2024 12:15 PM Status: COMPLETED Source: [facility] Office Visit (ENDOLN) ASHWINI VICKERS ([id number]) 1935 M Date Time Provider Department 10/26/24 12:15 PM JESSI ZAVALA ENDOLN During your visit today, we recorded the following information about you: Pulse Blood pressure Weight Height 60/minute 163/80 61 kg 1.778 m Jessi Zavala, FANTASMA 10/26/2024 1:11 PM Signed Endocrinology Follow Up History of Present Illness Ashwini Vickers is a 89 year old male presents today for follow up of DM Type 1. Here with . 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 Per patient, this was done due to [...] needed. Agents to treat Hypoglycemia (Hyperglycemics) Insulin Wappapello, Disposable, (BD ULTRA-FINE ROSALVA PEN NEEDLE) 32 gauge x Use with insulin once daily in case of pump failure Medical Supplies and DME - Insulin Wappapello-Syringes and Admin Supplies insulin pump cart,auto,BT,G6/7 (OMNIPOD 5 G6-G7 PODS, GEN 5,) crtg Change every 72 hours. Medical Supply, FDB Superset Lactobac no.41/Bifidobact no.7 (PROBIOTIC-10 ORAL) Take by mouth once daily. Intestinal Chayo Modifiers umdgla-ydnuisjo-cigoart (CREON) 24,000-76,000 -120,000 unit cpDR Take 2 capsules by mouth three times daily with meals. and 1 with snacks (8/day) Digestive Enzyme Mixtures lutein-zeaxanthin 25-5 mg cap Take by mouth once daily. Alternative Therapy - Antioxidant Omeprazole Magnesium 20 mg tablet Take 20 mg by mouth. Gastric Acid Secretion Edge Bonder - Proton Pump Inhibitors (PPIs) PARoxetine (PAXIL) 40 mg tablet Take 40 mg by mouth every morning. Antidepressant - Selective Serotonin Reuptake Inhibitors (SSRIs) tamsulosin (FLOMAX) 0.4 mg Take 0.4 mg by mouth. Prostatic Hypertrophy Agent - naizx-1-Nguyuelxiytj Antagonists Physical Activity: No formal program Diet: CHO Controlled Diet SMBG Frequency of Monitoring: Four times a Day Summary of Personal CGM Findings: Dates worn: 10/12/2024-10/25/2024 CGM Type: Dexcom 1- CGM recording is [...] lb 7.7 oz) SpO2 99% BMI 19.30 kg/m? General appearance: Well appearing, alert, in no [...] Value 09/25/2024 9.3 Estimated Glomerular Filtration Rate (mL/min/1.73m?) Date Value 09/25/2024 66 ALT (U/L) Date Value 09/25/2024 43 04/19/2018 12 TSH Date Value Ref Range Status 04/19/2018 0.874 0.400 - 5.500 uU/mL Final Impression/Recommendations IMPRESSION Ashwini Vickers is a 89 year old here [...] Advised to discuss further with PCP / aoc operations intelligence officer, but from our standpoint he would be [...] Recommend discontinuing Farxiga- discussed with PCP / aoc operations intelligence officer BACKUP INSULIN PLAN: Only use this if [...] of this document that has been added/copied AND pasted from other documents has been reviewed for accuracy and updated as appropriate at the time of the patient encounter Jessi Zavala APRN.KALANI (Signed electronically to expedite mailing) Jessi Zavala APRN.CNP 10/26/2024 12:48 PM Addendum Plan Basal 12am 0.4 8am 0.5 ICR 12am 15 ISF 12am 60 BG Correction Threshold 12am 150 BG Target 12am 150 Recommend discontinuing Farxiga due to risk of euglycemic diabetic ketoacidosis- discussed with PCP / aoc operations intelligence officer BACKUP INSULIN PLAN: Only use this if [...] than 70 Follow up in 8 weeks Allergies As of Date: 10/26/2024 (No Known Allergies) Date Reviewed: 10/26/2024 Reviewed by: Jessi Zavala APRN.CNP - Fully Assessed Reason for Visit: High Blood Sugar [212] Primary Visit Diagnosis: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 #:[id number] Prescriptions as of 10/26/2024 - insulin glargine (LANTUS SOLOSTAR U-100 INSULIN) 100 unit/mL (3 mL) Inject 12 Units subcutaneously daily at bedtime. For use in case of pump failure - insulin aspart U-100 (NOVOLOG U-100 INSULIN ASPART) 100 unit/mL ADMINISTER PER PUMP (MAX DAILY 75 UNITS) - insulin pump cart,auto,BT,G6/7 (OMNIPOD 5 G6-G7 PODS, GEN 5,) crtg Change every 72 hours. - Insulin Wappapello, Disposable, (BD ULTRA-FINE ROSALVA PEN NEEDLE) 32 [...] Inject 1 mg subcutaneously as needed. - nbynrh-pqwmcmtn-kzugobv (CREON) 24,000-76,000 -120,000 unit cpDR Take 2 [...] once daily. Problem List As Of Date 10/26/2024 Noted Resolved IPMN (intraductal papillary mucinous neoplasm) *06/23/2018 Other instructions from your clinician: Plan Basal 12am 0.4 8am 0.5 ICR 12am 15 ISF 12am 60 BG Correction Threshold 12am 150 BG Target 12am 150 Recommend discontinuing Farxiga due to risk of euglycemic diabetic ketoacidosis- discussed with PCP / aoc operations intelligence officer BACKUP INSULIN PLAN: Only use this if [...] than 70 Follow up in 8 weeks Disposition: Return in about 2 months (around 12/26/2024). Follow-up and Disposition History for Encounter Date Provider Department Center 10/26/2024 [id number] ZAVALA [facility] Encounter Status:Closed by JESSI ZAVALA on 10/26/24 PROGRESS Observed: 10/26/2024 12:05 PM Status: COMPLETED Source: [facility] ID: [id number] Author: JESSI ZAVALA APRN.APPLIED PSYCHOLOGY CHAIR Service: ? Author Type: Nurse Practitioner Type: Progress Notes Filed: 10/26/2024 13:11 Note Text: Endocrinology Follow Up History of Present Illness Ashwini Vickers is a 89 year old male presents today for follow up of DM Type 1. Here with . 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 Per patient, this was done due to [...] needed. Agents to treat Hypoglycemia (Hyperglycemics) Insulin Wappapello, Disposable, (BD ULTRA-FINE ROSALVA PEN NEEDLE) 32 gauge x Use with insulin once daily in case of pump failure Medical Supplies and DME - Insulin Wappapello-Syringes and Admin Supplies insulin pump cart,auto,BT,G6/7 (OMNIPOD 5 G6-G7 PODS, GEN 5,) crtg Change every 72 hours. Medical Supply, FDB Superset Lactobac no.41/Bifidobact no.7 (PROBIOTIC-10 ORAL) Take by mouth once daily. Intestinal Chayo Modifiers sbqcss-wnjnszms-nhsclum (CREON) 24,000-76,000 -120,000 unit cpDR Take 2 capsules by mouth three times daily with meals. and 1 with snacks (8/day) Digestive Enzyme Mixtures lutein-zeaxanthin 25-5 mg cap Take by mouth once daily. Alternative Therapy - Antioxidant Omeprazole Magnesium 20 mg tablet Take 20 mg by mouth. Gastric Acid Secretion Edge Bonder - Proton Pump Inhibitors (PPIs) PARoxetine (PAXIL) 40 mg tablet Take 40 mg by mouth every morning. Antidepressant - Selective Serotonin Reuptake Inhibitors (SSRIs) tamsulosin (FLOMAX) 0.4 mg Take 0.4 mg by mouth. Prostatic Hypertrophy Agent - lacsa-1-Gdeektfxrkjw Antagonists Physical Activity: No formal program Diet: CHO Controlled Diet SMBG Frequency of Monitoring: Four times a Day Summary of Personal CGM Findings: Dates worn: 10/12/2024-10/25/2024 CGM Type: Double R Group 1- CGM recording is adequate for interpretation. [...] lb 7.7 oz) SpO2 99% BMI 19.30 kg/m? General appearance: Well appearing, alert, in no [...] Value 09/25/2024 9.3 Estimated Glomerular Filtration Rate (mL/min/1.73m?) Date Value 09/25/2024 66 ALT (U/L) Date Value 09/25/2024 43 04/19/2018 12 TSH Date Value Ref Range Status 04/19/2018 0.874 0.400 - 5.500 uU/mL Final Impression/Recommendations IMPRESSION Ashwini Vickers is a 89 year old here [...] Advised to discuss further with PCP / aoc operations intelligence officer, but from our standpoint he would be [...] Recommend discontinuing Farxiga- discussed with PCP / aoc operations intelligence officer BACKUP INSULIN PLAN: Only use this if [...] of this document that has been added/copied AND pasted from other documents has been reviewed for accuracy and updated as appropriate at the time of the patient encounter Jessi Zavala APRN.KALANI (Signed electronically to expedite mailing) JEVON Observed: 10/13/2024 12:00 AM Status: COMPLETED Source: [facility] Telephone ([employer]) ASHWINI VICKERS ([id number]) 1935 M Date Time Provider Department 10/13/24 GAYE MATASarah During your visit today, we recorded the following information about you: Gaye Mata RN 10/13/2024 8:13 AM Signed LM for pt to return call. Patient appears to now be connected to the sensor. Advised how to treat hypoglycemia. Recommended see educator for appt to review pump and sensor operation Allergies As of Date: 10/13/2024 (No Known Allergies) Date Reviewed: 09/25/2024 Reviewed by: Jessi Zavala APRN.APPLIED PSYCHOLOGY CHAIR - Fully Assessed Reason for Visit: Omnipod/Dexcom [...] crtg Change every 72 hours. - Insulin Wapp[place]ello, Disposable, (BD ULTRA-FINE ROSALVA PEN NEEDLE) 32 [...] Inject 1 mg subcutaneously as needed. - dfqwob-kwzaxbnz-anejmwo (CREON) 24,000-76,000 -120,000 unit cpDR Take 2 [...] Encounter Status:Closed by GAYE MATA on 10/13/24 JEVON Observed: 10/11/2024 12:00 AM Status: COMPLETED Source: [facility] ASHWIN[facility] VICK[facility] ([id number]) 1935 M Date Time Provider Department 10/11/24 GAYE MATA During your visit today, we recorded the following information about you: Gaye Mata, RN 10/11/2024 4:23 PM Signed Patient's sent message patient had received Dexcom G7 CGM sensors from [employer] last night. Patient applied Omnipod 6 insulin [...] Known Allergies) Date Reviewed: 09/25/2024 Reviewed by: Jessi Zavala APRN.APPLIED PSYCHOLOGY CHAIR - Fully Assessed Reason for Visit: Omnipod [...] crtg Change every 72 hours. - Insulin Wappapello, Disposable, (BD ULTRA-FINE ROSALVA PEN NEEDLE) 32 [...] Inject 1 mg subcutaneously as needed. - mijxfw-dhkdkwwr-vqsxosf (CREON) 24,000-76,000 -120,000 unit cpDR Take 2 [...] Encounter Status:Closed by GAYE MATA on 10/11/24 JEVON Observed: 10/11/2024 12:00 AM Status: COMPLETED Source: [facility] Telephone (ENDOLN) ASHWINI VICKERS ([id number]) 1935 M Date Time Provider Department 10/11/24 JESSI ZAVALA During your visit today, we recorded the following information about you: Jessi Zavala APRN.CNP 10/11/2024 8:08 AM Signed Received notice from pharmacy PA is request for Ominpod 5 pods. Please complete. Ruchi Rhoades 10/11/2024 11:37 AM Signed Initiated PA for insulin pump cart,auto,BT,G6/7 (OMNIPOD 5 G6-G7 PODS, GEN 5,) crtg through [employer] Medicare Chart notes attached Questions Completed Waiting for determination [facility] Prior [facility] [place] Ruchi Rhoades 10/11/2024 11:37 AM Signed Allergies As of Date: 10/11/2024 (No Known Allergies) Date Reviewed: 09/25/2024 Reviewed by: Jessi Zavala APRN.KALANI - Fully Assessed Reason for Visit: Insurance Authorization [[id number]] Cmt: insulin pump cart,auto,BT,G6/7 (OMNIPOD 5 G6-G7 [...] crtg Change every 72 hours. - Insulin Wappapello, Disposable, (BD ULTRA-FINE ROSALVA PEN NEEDLE) 32 [...] Inject 1 mg subcutaneously as needed. - xizckq-ztburyxp-xjufnxu (CREON) 24,000-76,000 -120,000 unit cpDR Take 2 [...] papillary mucinous neoplasm) *06/23/2018 Encounter Status:Closed by JESSI ZAVALA on 10/11/24 JEVON Observed: 10/10/2024 12:00 AM Status: COMPLETED Source: [facility] Telephone (MOMOT) ASHWINI VICKERS ([id number]) 1935 M Date Time Provider Department 10/10/24 GAYE MATA During your visit today, we recorded the following information about you: Gaye Mata, RN 10/10/2024 9:36 AM Signed Called and spoke with patient's . Patient called educator last week stating he has been having issues getting his Dexcom G7 CGM sensors from his DME company, [employer]. Patient states he called them a [...] to patient's provider office for follow up. Sandra Peguero LPN 10/10/2024 3:40 PM Signed Spoke to [employer] Rep, he reported that the Dexcom supplies should be delivered today vis [employer]. Tracking nbr [id number]. According to his notes it was out for delivery at 5:48 am 10/10/2024. I attempted to reach patient at both nbrs listed, no answer. VM left with update. I will send a Quanlight message as well. Allergies As of Date: 10/10/2024 (No Known Allergies) Date Reviewed: 09/25/2024 Reviewed by: Jessi Zavala APRN.APPLIED PSYCHOLOGY CHAIR - Fully Assessed Reason for Visit: Dexcom [...] crtg Change every 72 hours. - Insulin Wappapello, Disposable, (BD ULTRA-FINE ROSALVA PEN NEEDLE) 32 gauge x 32 Use with insulin once daily in case [...] Inject 1 mg subcutaneously as needed. - pkkasf-vgqfdekd-exnzeos (CREON) 24,000-76,000 -120,000 unit cpDR Take 2 [...] Encounter Status:Closed by GAYE MATA on 10/10/24 JEVON Observed: 10/04/2024 12:00 AM Status: COMPLETED Source: [facility] Telephone (DEMT) NABILASHWINI OSBORN ([id number]) 1935 M Date Time Provider Department 10/04/24 ROSEANNALEGAYE MOTT During your visit today, we recorded the following information about you: Allergies As of Date: 10/04/2024 (No Known Allergies) Date Reviewed: 09/25/2024 Reviewed by: Jessi Zavala APRN.APPLIED PSYCHOLOGY CHAIR - Fully Assessed Reason for Visit: Omnipod [...] 5,) crtg Change every 72 hours. - suxoeo-yaomkkhd-spxheyc (CREON) 24,000-76,000 -120,000 unit cpDR Take 2 [...] Encounter Status:Closed by GAYE MATA on 10/04/24 JEVON Observed: 10/04/2024 12:00 AM Status: COMPLETED Source: [facility] Telephone ([employer]) ASHWINI VICKERS ([id number]) 1935 M Date Time Provider Department 10/04/24 GAYE MATA During your visit today, we recorded the following information about you: Gaye Mata, KARIN 10/04/2024 4:41 PM Signed Patent called stating that he is out of Double R Group G7 CGM sensors and has been having difficulty getting the shipment from [employer], his DME supplier. Patient states he made 3 calls to them this week, one including a electrical & instrumentation supervisor at [employer], who promised that the shipment was sent and would be received in a day or two. Advised patient to contact his provider's office to see if they are able to help as they submitted all the original paperwork to [employer] back in August and I am not sure if they are waiting on something from the office. Patient was also told to see if the provider's office had Dexcom G7 sensor samples to provide until his shipment arrives so he does not have to drive out to [facility]. Patient verbalized understanding. Allergies As of Date: 10/04/2024 (No Known Allergies) Date Reviewed: 09/25/2024 Reviewed by: Jessi Zavala APRN.APPLIED PSYCHOLOGY CHAIR - Fully Assessed Reason for Visit: Double R Group G7 CGM supply issues [Other] Prescriptions as [...] Inject 1 mg subcutaneously as needed. - dbozqz-vbfttozc-kycvwja (CREON) 24,000-76,000 -120,000 unit cpDR Take 2 [...] Encounter Status:Closed by GAYE MATA on 10/04/24 KALANIN Observed: 09/27/2024 12:00 AM Status: COMPLETED Source: [facility] Telephone ([employer]) ASHWINI VICKERS ([id number]) 1935 M Date Time Provider Department 09/27/24 GAYE MATASarah During your visit today, we recorded the following information about you: Allergies As of Date: 09/27/2024 (No Known Allergies) Date Reviewed: 09/25/2024 Reviewed by: Jessi Zavala APRN.[facility] - Fully Assessed Reason for Visit: [employer] 5 pump follow up call [Other] Prescriptions [...] 5,) crtg Change every 72 hours. - ogulct-mxalilhj-irgyqfl (CREON) 24,000-76,000 -120,000 unit cpDR Take 2 [...] Encounter Status:Closed by GAYE MATA on 09/27/24 [facility]: 09/27/2024 12:00 AM Status: COMPLETED Source: [facility] Telephone (LIANNA) ASHWINI VICKERS ([id number]) 1935 M Date Time Provider Department 09/27/24 GAYE MATA During your visit today, we recorded the following information about you: Gaye Mata RN 09/27/2024 1:23 PM Signed In error Allergies As of Date: 09/27/2024 (No Known Allergies) Date Reviewed: 09/25/2024 Reviewed by: Jessi Zavala APRN.APPLIED PSYCHOLOGY CHAIR - Fully Assessed Prescriptions as of 09/27/2024 [...] 5,) crtg Change every 72 hours. - lcdppp-lqvxuxlv-wainiqi (CREON) 24,000-76,000 -120,000 unit cpDR Take 2 [...] Encounter Status:Closed by GAYE MATA on 09/27/24 JEVON Observed: 09/26/2024 12:00 AM Status: COMPLETED Source: [facility] Telephone (ENDOLN) ASHWINI VICKERS ([id number]) 1935 M Date Time Provider Department 09/26/24 JESSI ZAVALA ENDOLN During your visit today, we recorded the following information about you: Jessi Zavala APRN.KALANI 09/26/2024 7:40 AM Signed Received page regarding critical lab result of glucose 614 mg/dL. 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 Please call patient and instruct him to be seen in the ER immediately. Sandra Peguero LPN 09/26/2024 7:52 AM Signed Attempted to reach patient at both numbers listed in demo. Left urgent messages on both V Ramya Salvador, RN 09/26/2024 8:20 AM Signed Pt identified by name and Pt given message below Stated understanding will take pt to [facility] Advised to f/u with endo upon release [...] 09-25-2024) Will document this in epic/ basics Sandra Peguero LPN 09/26/2024 8:18 AM Signed Left message on machine to call the office. Jessi Zavala APRN.CNP 09/26/2024 11:55 AM Addendum Provided report to [place] ER. Informed of BG of 614 mg/dL on labs yesterday and AG of 17, patient needs to be evaluated for possible DKA. Yanique Griffin, RN 09/26/2024 8:40 AM Signed Pt is [...] Advised: Per Provider for her to take Ashwini to ER. She has already called Report to their ER Agreeable Jessi Zavala APRN.KALANI 09/26/2024 12:08 PM Addendum It appears patient has been discharged from [place] ER around 10:00 AM. His blood sugar has greatly improved and is at/near range per pump report today (see below). Please reach out to patient/ to see how patient is doing. I will also have Gaye (pump parent trainer) reach out to them to review 1) how to enter his Dexcom G7 sensor info into the pump with each sensor change so he does not get disconnected again and 2) to have him placed back in Automated Mode/how to ensure he remains in this. Will closely follow pump report over the next few days. Sandra Peguero LPN 09/26/2024 2:00 PM Signed Attempted to reach patient, left message on VM letting him know that we were checking in on him. No need for him to call back unless he has questions. I will try again later this afternoon. Sandra Peguero LPN 09/27/2024 5:50 PM Signed Please see [place] message 09/27/24 Allergies As of Date: 09/26/2024 (No Known Allergies) Date Reviewed: 09/25/2024 Reviewed by: Jessi Zavala APRN.KALANI - Fully Assessed Prescriptions as of 09/27/2024 [...] 5,) crtg Change every 72 hours. - skaadp-uenfuobn-scisgpc (CREON) 24,000-76,000 -120,000 unit cpDR Take 2 [...] 09/26/2024 Noted Resolved IPMN (intraductal papillary mucinous neoplasm) *06/23/2018 Encounter Status:Closed by JESSI ZAVALA on 09/26/24 ALBUMIN/CREATININE RATIO, URINE Collect ed: 09/25/2024 3:34 PM Status: F Source: [facility] Order Comment: Specimen Type : URINE SPECIMEN Ordering Facility: [facility] Address: [address] [place], [place] [id number] TYPE CODE TESTS RESULT OUT OF RANGE REFERENCE UNITS LAB 2161-8(LOINC) Creat Ur-mCnc 19.1 Low 20.0-300.0 m g/dL LAB 51360-3(LOINC ) Microalbumin Ur-mCnc 20.2 mg/L LAB 9318-7(LOINC) Albumin/Creat Ur 106 High <30 mg/g Result Comment: Adult Male a nd Female Nephrotic Criteria: <30 mg/g is considered normal to mildly increased 30-300 mg/g is considered moderately increased >300 mg/g is considered severely increased KDIGO. (2013). KDIGO 2012 Clinical Practice Guideline for the Evaluation and Management of Chronic Kidney Disease. Official Journal of the International Society of Nephrology, 3(1), 1-150. Performed By: #### UACR #### [facility] CLIA [id number] [address] [place] [address] [place] COMP METAB 2000 PNL SERPL Collected: 3:20 PM Status: F Source: [facility] Order Comment: Specimen Type : BLOOD SPECIMEN Ordering Facility: [facility] Address: [address] [place] [address] TYPE CODE TESTS RESULT OUT OF RANGE REFERENCE UNITS LAB 2885-2(LOINC) Prot SerPl-mCnc 7.1 6.3-8.0 g/dL LAB 1751-7(LOINC) Albumin SerPl-mCnc 3.9 3.9-4.9 g/dL LAB 28639-2(LOINC) Calcium SerPl-mCnc 9.3 8.5-10.2 mg/dL LAB 1975-2(LOINC) Bilirub SerPl-mCnc 0.5 0.2-1.3 mg/dL LAB 6768-6(LOINC) ALP SerPl-cCnc 156 High 38-113 U/L LAB 1920-8(LOINC) AST SerPl-cCnc 76 High 14-40 U/L LAB 1742-6(LOINC) ALT SerPl-cCnc 43 10-54 U/L LAB 2345-7(LOINC) Glucose SerPl-mCnc 614 High 74-99 mg/dL Result Comment: The [place] Diabetes Association (ADA) provides guidance for cutoff [...] Standards of Medical Care in Diabetes 2016, [place] Diabetes Association. Diabetes Care. 2016.39(Suppl 1). LAB 3094-0(LOINC) BUN SerPl-mCnc 37 High 9-24 mg/ dL LAB 2160-0(LOINC) Creat SerPl-mCnc 1.09 0.73-1.22 mg/dL LAB 2951-2(LOINC) Sodium SerPl-sCnc 127 Low 136-144 mmol/L LAB 2823-3(LOINC) Potassium SerPl-sCnc 5.2 High 3.7-5.1 mmol/L LAB 2075-0(LOINC) Chloride SerPl-sCnc 86 Low 98-107 mmol/L LAB 2028-9(LOINC) CO2 SerPl-sCnc 24 22-30 mmo l/L LAB 94059-7(LOINC) Anion Gap SerPl-sCnc 17 High 8-15 mmol/L LAB 46536-3(LOINC) Creatinine + eGFR Pnl SerPlBld 66 >=60 mL/min/1 .73m??? Result Comment: Estimated Gl omerular Filtration Rate (eGFR) is calculated using the 2020 CKD-EPI creatinine equation. This equation utilizes serum creatinine, sex, and age as parameters. The creatinine assay has traceable calibration to isotope dilution-mass spectrometry. Refer to KDIGO guidelines for clinical interpretation. In patients with unstable renal function, e.g. those with acute kidney injury, the eGFR may not accurately reflect actual GFR. Performed By: #### LIPHONG, 24 323-8 #### [facility] CLIA [id number] [address] [place] [address] [place] LIPID PANEL, NONFASTING Collected: 09/25/2024 3:20 PM Status: F Source: [facility] Order Comment: Specimen Type : BLOOD SPECIMEN Ordering Facility: [facility] Address: [address], [place] [address] TYPE CODE TESTS RESULT OUT OF RANGE REFERENCE UNITS LAB CHOLNF TOTAL CHOLESTEROL NF 144 <200 mg/dL Result Comment: <200 mg/dL, Desirable 200-239 mg/dL, Borderline high >239 mg/dL, High LAB TRIGNF TRIGLYCERIDES, NF 168 High <150 mg/dL Result Comment: <150 mg/dL, Normal 150-199 mg/dL, Borderline high 200-499 mg/dL, High >499 mg/dL, Very high LAB HDLNF HDL CHOLESTEROL, NF 51 >39 mg/dL Result Comment: 40-59 mg/dL, Acceptable >59 mg/dL, High: Negative risk factor for coronary heart disease <40 mg/dL, Low: Positive risk factor for coronary heart disease LAB LDLNF LDL CHOLESTEROL, NF 59 <100 mg/dL Result Comment: <100 mg/dL, Optimal 100-129 mg/dL, Near optimal/above optimal 130-159 mg/dL, Borderline high 160-189 mg/dL, High >189 mg/dL, Very high Secondary prevention optimal LDL Cholesterol levels are recommended to be < 70 mg/dL LAB NOHDLN NON HDL CHOL, NF 93 <130 mg/dL Result Comment: <130 mg/dL, Optimal 130-159 mg/dL, Near optimal/above optimal 160-189 mg/dL, Borderline high 190-219 mg/dL, High >219 mg/dL, Very high Secondary prevention optimal non HDL Cholesterol levels are recommended to be <100 mg/dL LAB VLDLNF VLDL CHOLESTEROL, NF 34 High <30 mg/dL LAB TCHDLN T CHOL/HDL RATIO NF 2.82 <5.10 mg/dL LAB LDLHDN LDL/HDL RATIO, NF 1.16 <2.54 mg/dL Result Comment: Reference: 1. National Cholesterol Education Program ATP III Guideline At-A-Glance Quick Desk Reference: National Heart, Lung, and Blood [place]. National Institutes of Health. 2001: NIH Publication No. 01-3305. 2. An International Atherosclerosis Society position paper: global recommendations for the management of dyslipidemia: executive summary, Atherosclerosis. 2014: 232(2):410-413. Performed By: #### LIPNF, 24 323-8 #### [facility] CLIA [id number] [address] [place] [address] [place] CNOV Observed: 09/25/2024 2:30 PM Status: COMPLETED Source: [facility] Office Visit (ENDOLN) NABILASHWINI OSBORN ([id number]) 1935 M Date Time Provider Department 09/25/24 2:30 PM JESSI ZAVALA ENDOLN During your visit today, we recorded the following information about you: Pulse Blood pressure Weight 60/minute 162/93 63.1 kg Jessi Zavala APRN.APPLIED PSYCHOLOGY CHAIR 09/26/2024 11:42 AM Addendum Endocrinology Follow Up History of Present Illness Ashwini Vickers is a 89 year old male [...] in the meantime, but was able to strip picker Novolog on 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 He did not [...] pancreatectomy in September 2019 at [facility] in [place]. Per patient, this was done due to [...] by mouth once daily. Intestinal Chayo Modifiers qxhwvb-fvsatpgj-emsbqrd (CREON) 24,000-76,000 -120,000 unit cpDR Take 2 capsules by mouth three times daily with meals. and 1 with snacks (8/day) Digestive Enzyme Mixtures lutein-zeaxanthin 25-5 mg cap Take by mouth once daily. Alternative Therapy - Antioxidant Omeprazole Magnesium 20 mg tablet Take 20 mg by mouth. Gastric Acid Secretion Edge Bonder - Proton Pump Inhibitors (PPIs) PARoxetine (PAXIL) 40 mg tablet Take 40 mg by mouth every morning. Antidepressant - Selective Serotonin Reuptake Inhibitors (SSRIs) tamsulosin (FLOMAX) 0.4 mg Take 0.4 mg by mouth. Prostatic Hypertrophy Agent - kpbum-9-Imgqrvkqsjfk Antagonists Physical Activity: No formal program Diet: [...] lb 1.8 oz) SpO2 100% BMI 19.96 kg/m? General appearance: Well appearing, alert, in no [...] ALL BASIC METABOLIC PANEL Component Ref Range AND Units 12 d ago SODIUM 136 - 145 mmol/L 139 POTASSIUM 3.5 - 5.1 mmol/L 4.3 CHLORIDE 98 - 107 mmol/L 99 CARBON DIOXIDE 21.0 - 32.0 mmol/L 31.2 ANION GAP 13.1 GLUCOSE 74 - 106 mg/dL 385 High BLOOD UREA NITROGEN 7.0 - 18.0 mg/dL 23 High CREATININE 0.70 - 1.30 mg/dL 1.31 High TBH EGFR-AF SPANISH >=60 mL/min/1.73m 2 >60 TBH EGFR-NON AF SPANISH >=60 mL/min/1.73m 2 52 Low BUN CREATININE RATIO 17.6 CALCIUM 8.5 - 10.1 mg/dL 9 Resulting Agency TB Specimen Collected: 09/13/24 9:23 AM Performed by: [facility] Last Resulted: 09/13/24 10:54 AM Received From: [facility] Result Received: 09/25/24 2:18 PM Impression/Recommendations IMPRESSION Ashwini Vickers is a 89 year old here [...] managing pump continues to be a concern. Will perform labs today. Discussed with [...] LDL , TG LIPID PANEL (EXTERNAL) Order: [id number] Component Ref Range AND Units Cholesterol 150 - 200 mg/dL 97 Low Triglycerides 27 - 150 mg/dL 38 HDL Cholesterol >39 mg/dL 50 VLDL 0 - 30 mg/dL 8 LDL (calc) <130 mg/dL 39 Cholesterol:HDL Ratio 1.0 - 5.0 1.9 Resulting Agency [facility] Specimen Collected: 01/22/24 6:06 AM Performed by: [employer] Last Resulted: 01/22/24 1:58 PM Received From: [facility] Result Received: 07/06/24 9:37 AM -- This [...] of this document that has been added/copied AND pasted from other documents has been reviewed for accuracy and updated as appropriate at the time of the patient encounter Jessi Zavala APRN.KALANI (Signed electronically to expedite mailing) Jessi Zavala APRN.CNP 09/25/2024 3:06 PM Addendum Plan Basal 12am 0.05-->0.5 ICR 12am 20-->15 [...] Follow up with me in 4 weeks Allergies As of Date: 09/25/2024 (No Known Allergies) Date Reviewed: 09/25/2024 Reviewed by: Jessi Zavala APRN.APPLIED PSYCHOLOGY CHAIR - Fully Assessed Reason for Visit: Diabetes [34] Primary Visit Diagnosis: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 - icruav-pazyyrdy-dadqkhy (CREON) 24,000-76,000 -120,000 unit cpDR Take 2 [...] once daily. Problem List As Of Date 09/25/2024 Noted Resolved IPMN (intraductal papillary mucinous neoplasm) *06/23/2018 Other instructions from your clinician: Plan Basal 12am 0.05-->0.5 ICR 12am 20-->15 [...] Follow up with me in 4 weeks Disposition: Return in about 4 weeks (around 10/23/2024). Follow-up and Disposition History for Encounter Date Provider Department Center 09/25/2024 [id number], KIRSTEN KALEY Gorman [facility] Encounter Status:Closed by JESSI ZAVALA on 09/25/24 PROGRESS Observed: 09/25/2024 2:25 PM Status: COMPLETED Source: [facility] ID: [id number] Author: JESSI ZAVALA APRN.APPLIED PSYCHOLOGY CHAIR Service: ? Author Type: Nurse Practitioner Type: Progress Notes Filed: 09/26/2024 11:42 Note Text: Endocrinology Follow Up History of Present Illness Ashwini Vickers is a 89 year old male [...] in the meantime, but was able to strip picker Novolog on 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 He did not [...] pancreatectomy in September 2019 at [facility] in [place]. Per patient, this was done due to [...] by mouth once daily. Intestinal Chayo Modifiers icvunn-nefodmwx-tbzubqn (CREON) 24,000-76,000 -120,000 unit cpDR Take 2 capsules by mouth three times daily with meals. and 1 with snacks (8/day) Digestive Enzyme Mixtures lutein-zeaxanthin 25-5 mg cap Take by mouth once daily. Alternative Therapy - Antioxidant Omeprazole Magnesium 20 mg tablet Take 20 mg by mouth. Gastric Acid Secretion Edge Bonder - Proton Pump Inhibitors (PPIs) PARoxetine (PAXIL) 40 mg tablet Take 40 mg by mouth every morning. Antidepressant - Selective Serotonin Reuptake Inhibitors (SSRIs) tamsulosin (FLOMAX) 0.4 mg Take 0.4 mg by mouth. Prostatic Hypertrophy Agent - xzlkt-6-Aayhjbjepiih Antagonists Physical Activity: No formal program Diet: [...] lb 1.8 oz) SpO2 100% BMI 19.96 kg/m? General appearance: Well appearing, alert, in no [...] ALL BASIC METABOLIC PANEL Component Ref Range AND Units 12 d ago SODIUM 136 - 145 mmol/L 139 POTASSIUM 3.5 - 5.1 mmol/L 4.3 CHLORIDE 98 - 107 mmol/L 99 CARBON DIOXIDE 21.0 - 32.0 mmol/L 31.2 ANION GAP 13.1 GLUCOSE 74 - 106 mg/dL 385 High BLOOD UREA NITROGEN 7.0 - 18.0 mg/dL 23 High CREATININE 0.70 - 1.30 mg/dL 1.31 High TBH EGFR-AF SPANISH >=60 mL/min/1.73m 2 >60 TBH EGFR-NON AF SPANISH >=60 mL/min/1.73m 2 52 Low BUN CREATININE RATIO 17.6 CALCIUM 8.5 - 10.1 mg/dL 9 Resulting Agency TB Specimen Collected: 09/13/24 9:23 AM Performed by: [facility] Last Resulted: 09/13/24 10:54 AM Received From: [facility] Result Received: 09/25/24 2:18 PM Impression/Recommendations IMPRESSION Ashwini Vickers is a 89 year old here [...] managing pump continues to be a concern. Will perform labs today. Discussed with [...] LDL , TG LIPID PANEL (EXTERNAL) Order: [id number] Component Ref Range AND Units Cholesterol 150 - 200 mg/dL 97 Low Triglycerides 27 - 150 mg/dL 38 HDL Cholesterol >39 mg/dL 50 VLDL 0 - 30 mg/dL 8 LDL (calc) <130 mg/dL 39 Cholesterol:HDL Ratio 1.0 - 5.0 1.9 Resulting Agency [facility] Specimen Collected: 01/22/24 6:06 AM Performed by: [employer] Last Resulted: 01/22/24 1:58 PM Received From: [facility] Result Received: 07/06/24 9:37 AM -- This [...] of this document that has been added/copied AND pasted from other documents has been reviewed for accuracy and updated as appropriate at the time of the patient encounter Jessi Zavala APRN.KALANI (Signed electronically to expedite mailing) JEVON Observed: 09/22/2024 12:00 AM Status: COMPLETED Source: [facility] Telephone (ELIZABETHZeta InteractiveSarah) ASHWINI VICKERS ([id number]) 1935 M Date Time Provider Department 09/22/24 [...] Known Allergies) Date Reviewed: 07/06/2024 Reviewed by: Jessi Zavala APRN.APPLIED PSYCHOLOGY CHAIR - Fully Assessed Prescriptions as of 09/22/2024 [...] 5,) crtg Change every 72 hours. - tolthk-dxmpuvcd-ozwmnpy (CREON) 24,000-76,000 -120,000 unit cpDR Take 2 [...] Encounter Status:Closed by GAYE MATA on 09/22/24 JEVON Observed: 09/22/2024 12:00 AM Status: COMPLETED Source: [facility] Telephone (Golimi) ASHWINI VICKERS ([id number]) 1935 M Date Time Provider Department 09/22/24 [...] told to keep appointment on 09/25/24 with Jessi Zavala APRN, CNP to review pump settings and reinforce education. Allergies As of Date: 09/22/2024 (No Known Allergies) Date Reviewed: 07/06/2024 Reviewed by: Jessi Zavala APRN.APPLIED PSYCHOLOGY CHAIR - Fully Assessed Reason for Visit: Omnipod [...] 5,) crtg Change every 72 hours. - mnvkxu-ddnzqcjr-gfpiyxr (CREON) 24,000-76,000 -120,000 unit cpDR Take 2 [...] Encounter Status:Closed by GAYE MATA on 09/22/24 JEVON Observed: 09/21/2024 12:00 AM Status: COMPLETED Source: [facility] Telephone (Golimi) ASHWINI VICKERS ([id number]) 1935 M Date Time Provider Department 09/21/24 GAYE MATA During your visit today, we recorded the following information about you: Allergies As of Date: 09/21/2024 (No Known Allergies) Date Reviewed: 07/06/2024 Reviewed by: Jessi Zavala APRN.APPLIED PSYCHOLOGY CHAIR - Fully Assessed Reason for Visit: Omipod [...] 5,) crtg Change every 72 hours. - nbpwjr-kzlmdilh-modpsjv (CREON) 24,000-76,000 -120,000 unit cpDR Take 2 [...] Encounter Status:Closed by GAYE MATA on 09/21/24 CNNURSE Observed: 09/04/2024 1:00 PM Status: COMPLETED Source: [facility] Nurse Visit (ELIZABETHBHT) ASHWINI VICKERS ([id number]) 1935 M Date Time Provider Department 09/04/24 1:00 PM GAYE MATA During your visit today, we recorded the following information about you: Gaye Mata, KARIN 09/04/2024 3:22 PM Signed DIABETES SELF-MANAGEMENT EDUCATION AND SUPPORT FOLLOW-UP VISIT Type of Diabetes: Type 2 Location: [place] Type of visit: In person individual Types [...] meter for manual fingersticks, not connected to Fashion Republicipod [employer] Type of visit: In person individual Patient started today on Omnipod 5 insulin pump. Type of training:upgrade from [employer] If upgrade, patient was previously on the [...] provider and programmed into pump today. Name: Ashwini Vickers Date of : 1935 Report Created: [...] Name: Insulet Omnipod? 5 System Serial Number: [id number] Sync Date: 09/04/24 Device Time Offset (hh:mm): +00:00 Device Name: Insulet Omnipod Dash? System Serial Number: [id number] Sync Date: 03/05/22 Device Time Offset (hh:mm): +00:00 Device Name: Insulet Omnipod Dash? System Serial Number: [id number] Sync Date: 11/14/21 Device Time Offset (hh:mm): +00:00 Device Name: Insulet Omnipod DASH? Mcnairy Serial Number: Insulet Dash Sync Date: 09/19/20 Device Time Offset (hh:mm): +00:00 Device Name: Insulet Omnipod Dash? System Serial Number: [id number] Sync Date: 09/19/20 Device Time Offset (hh:mm): [...] weeks. This is a non-billable encounter through [employer] but will be billed to the following pump company: n/a - pump upgrade, billed as DSME visit . [...] resistance -Monitoring: CGM adhesion techniques, CGM basics AND daily use, CGM insertion steps, CGM type: [...] the pod. Patient also states he did not know to check for the pink box once [...] for patient selected goal(s) with dietitian and/or mate chief within 2-4 weeks/months via office visit, Quanlight message, email, or phone call. Contact information provided to patient for mate chief. Educator to contact patient in 3 days [...] training each year after the initial Diabetes Self-Management Training (DSMT). Commercial insurances for diabetes education coverage may vary based on the plan requirements. Call [phone] to schedule a diabetes education follow up visit. Time Spent (Minutes): 120 This visit note will be communicated to the healthcare provider via access to shared medical record. 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 - hmollr-ekdygusm-kihruvt (CREON) 24,000-76,000 -120,000 unit cpDR Take 2 [...] once daily. Problem List As Of Date 09/04/2024 Noted Resolved IPMN (intraductal papillary mucinous neoplasm) *06/23/2018 Encounter Status:Closed by GAYE MATA on 09/04/24 PROGRESS Observed: 09/04/2024 1:00 PM Status: COMPLETED Source: [facility] ID: [id number] Author: GAYE MATA RN Service: ? Author Type: Registered Nurse Type: Progress Notes Filed: 09/04/2024 15:22 Note Text: DIABETES SELF-MANAGEMENT EDUCATION AND SUPPORT FOLLOW-UP VISIT Type of Diabetes: Type 2 Location: [place] Type of visit: In person individual Types [...] provider and programmed into pump today. Name: Ashwini Vickers Date of : 1935 Report Created: [...] Name: Insulet Omnipod? 5 System Serial Number: [id number] Sync Date: 09/04/24 Device Time Offset (hh:mm): +00:00 Device Name: Insulet Omnipod Dash? System Serial Number: [id number] Sync Date: 03/05/22 Device Time Offset (hh:mm): +00:00 Device Name: Insulet Omnipod Dash? System Serial Number: [id number] Sync Date: 11/14/21 Device Time Offset (hh:mm): +00:00 Device Name: Insulet Omnipod DASH? Mcnairy Serial Number: Insulet Dash Sync Date: 09/19/20 Device Time Offset (hh:mm): +00:00 Device Name: Insulet Omnipod Dash? System Serial Number: [id number] [facility] Date: 09/19/20 Device Time Offset (hh:mm): +00:00 [...] weeks. This is a non-billable encounter through [employer] but will be billed to the following pump company: n/a - pump upgrade, billed as DSME visit . [...] resistance -Monitoring: CGM adhesion techniques, CGM basics AND daily use, CGM insertion steps, CGM type: [...] the pod. Patient also states he did not know to check for the pink box once [...] previous visit GOAL FOLLOW-UP Patient will use [employer] 5 custom foods feature and Dexcom G7 [...] for patient selected goal(s) with dietitian and/or mate chief within 2-4 weeks/months via office visit, Quanlight message, email, or phone call. Contact information provided to patient for mate chief. Educator to contact patient in 3 days [...] training each year after the initial Diabetes Self-Management Training (DSMT). Commercial insurances for diabetes education coverage may vary based on the plan requirements. Call [phone] to schedule a diabetes education follow up visit. Time Spent (Minutes): 120 This visit note will be communicated to the healthcare provider via access to shared medical record. SIGNATURE: Gaye Mata RN PATIENT NAME: Ashwini Vickers DATE: September 04, 2024 TIME: 12:45 PM PAGER: JEVON Observed: 08/31/2024 12:00 AM Status: COMPLETED Source: [facility] Telephone (DEMBHT) ASHWINI VICKERS ([id number]) 1935 M Date Time Provider Department 08/31/24 GAYE MATA During your visit today, we recorded the following information about you: Gaye Mata, RN 08/31/2024 11:59 AM Signed Spoke with patient's regarding Omnipod 5 insulin pump start with Dexcom G7 on 09/04/24 at 1 pm. Patient is currently using DASH with reader. Advised to make sure patient brings his insulin, all login passwords for Omnipod, Glooko, and Dexcom G7, his smartphone, [employer] 5 controller phone fully charged and updated if needed so the pump start will go smoothly. requested email resent to her with instructions on day of training information to [email or web address] Allergies As of Date: 08/31/2024 (No Known Allergies) Date Reviewed: 07/06/2024 Reviewed by: Jessi Zavala APRN.APPLIED PSYCHOLOGY CHAIR - Fully Assessed Reason for Visit: Appointment [...] 5,) crtg Change every 72 hours. - ptyskw-vgtxuzqa-veszdin (CREON) 24,000-76,000 -120,000 unit cpDR Take 2 [...] Encounter Status:Closed by GAYE MATA on 08/31/24 KALANIN Observed: 08/15/2024 12:00 AM Status: COMPLETED Source: [facility] Telephone (ENDOLN) ASHWINI VICKERS ([id number]) 1935 M Date Time Provider Department 08/15/24 JESSI ZAVALA During your visit today, we recorded the following information about you: Lit Goodwin MA 08/15/2024 10:24 AM Signed Received a fax from [employer] for a physician's order. Placed on Jessi's desk for signature on form and chart notes. Lit Goodwin MA 08/15/2024 11:57 AM Signed Form completed, faxed, confirmation received. Sent for scan. Allergies As of Date: 08/15/2024 (No Known Allergies) Date Reviewed: 07/06/2024 Reviewed by: Souleymane, Jessi, ART THERAPY SPECIALIST.APPLIED PSYCHOLOGY CHAIR - Fully Assessed Reason for Visit: Forms [913] Cmt: [employer] [facility] [employer]- Physcians order Prescriptions as of 08/15/2024 - [...] 5,) crtg Change every 72 hours. - xqrdnc-wgdlzsxh-uddyogc (CREON) 24,000-76,000 -120,000 unit cpDR Take 2 [...] papillary mucinous neoplasm) *06/23/2018 Encounter Status:Closed by SANDRA PEGUERO on 08/15/24 CNPN Observed: 08/09/2024 12:00 AM Status: COMPLETED Source: [facility] Telephone (ENDOLN) ASHWINI VICKERS ([id number]) 1935 M Date Time Provider Department 08/09/24 JESSI ZAVALA During your visit today, we recorded the following information about you: Mireya Ny MA 08/09/2024 10:39 AM Signed A form has been received from [facility] for [facility]CA steen. Faxed LUCA note 07/06/24 to [phone]. Confirmation received. Allergies As of Date: 08/09/2024 (No Known Allergies) Date Reviewed: 07/06/2024 Reviewed by: Jessi Zavala APRN.APPLIED PSYCHOLOGY CHAIR - Fully Assessed Reason for Visit: Forms [193] Cmt: Justin - LUCA note Prescriptions as of 08/09/2024 - insulin [...] 5,) crtg Change every 72 hours. - wpjovs-qceecmqd-obkuqlx (CREON) 24,000-76,000 -120,000 unit cpDR Take 2 [...] papillary mucinous neoplasm) *06/23/2018 Encounter Status:Closed by MIREYA NY on 08/09/24 PROGRESS Observed: 07/25/2024 1:04 PM Status: COMPLETED Source: [facility] ID: [id number] Author: GAYE MATA RN Service: ? Author Type: Registered Nurse Type: Progress Notes Filed: 07/25/2024 17:09 Note Text: DIABETES CARE AND EDUCATION VISIT Location: [place] Type of visit: In person individual PATIENT'S [...] see below for current pump settings Name: Ashwini Vickers Date of : 1935 Report Created: [...] - - - DEVICES Device Name: Carley Hernandez Dash? System Serial Number: [id number] Syn Date: 07/06/24 Device Time Offset (hh:mm): +00:00 [...] basics AND daily use and CGM type: Dexcom G7 with reader. Patient understand he will need to download Dexcom G7 eliane on his Iphone SE. Patient unable to recall log in for Dexcom eliane. Patient downloaded G6 eliane, not G7 eliane. Educator needed to call [employer] for assistance in resetting password as patient [...] terminology: basal, bolus, carb ratio, BG target, yzteglo-en-ghgaw/duration, and patient did not bring insulin vials with him so we were unable to start pump today. Patient and leaving for [place] for a month tomorrow and has rescheduled [...] TOPICS: 1. Patient and to return after [place] trip to start Omnipod 5 switch from DASH. Patient advised to remember to bring insulin vials, Omnipod 5 pods, phone, controller, and Omnipod ID login and password to next visit. DIABETES CARE AND EDUCATION PLAN: Individual follow-up Patient does not have [employer]. Email sent prior to today's visit on [...] record. SIGNATURE: Gaye Mata RN PATIENT NAME: Ashwini Vickers DATE: July 25, 2024 TIME: 2:52 PM PAGER: n/a CNNURSE Observed: 07/25/2024 1:00 PM Status: COMPLETED Source: [facility] Nurse Visit (MOMOT) ASHWINI VICKERS ([id number]) 1935 M Date Time Provider Department 07/25/24 1:00 PM GAYE MATA During your visit today, we recorded the following information about you: Gaye Mata, KARIN 07/25/2024 5:09 PM Signed DIABETES CARE AND EDUCATION VISIT Location: [place] Type of visit: In person individual PATIENT'S [...] see below for current pump settings Name: Ashwini Vickers Date of : 1935 Report Created: [...] Device Name: Carley Desai? System Serial Number: [id number] Sync Date: 07/06/24 Device Time Offset (hh:mm): [...] basics AND daily use and CGM type: iCook.tw with reader. Patient understand he will need to download Dexcom G7 eliane on his Iphone SE. Patient unable to recall log in for Dexcom eliane. Patient downloaded G6 eliane, not G7 eliane. Educator needed to call [employer] for assistance in resetting password as patient [...] terminology: basal, bolus, carb ratio, BG target, mylcopc-tm-waasl/duration, and patient did not bring insulin vials with him so we were unable to start pump today. Patient and leaving for [place] for a month tomorrow and has rescheduled [...] TOPICS: 1. Patient and to return after [place] trip to start Omnipod 5 switch from [employer]. Patient advised to remember to bring insulin vials, Omnipod 5 pods, phone, controller, and Omnipod ID login and password to next visit. DIABETES CARE AND EDUCATION PLAN: Individual follow-up [facility] Email sent prior to today's visit on [...] record. 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 - rdojcc-nddgzloz-bymdhky (CREON) 24,000-76,000 -120,000 unit cpDR Take 2 [...] once daily. Problem List As Of Date 07/25/2024 Noted Resolved IPMN (intraductal papillary mucinous neoplasm) *06/23/2018 Encounter Status:Closed by GAYE MATA on 07/25/24 JEVON Observed: 07/21/2024 12:00 AM Status: COMPLETED Source: [facility] Telephone ([employer] RANCHOASHWINI ([id number]) 1935 M Date Time Provider Department 07/21/24 GAYE MATA [facility] During your visit today, we recorded the following information about you: Allergies As of Date: 07/21/2024 (No Known Allergies) Date Reviewed: 07/06/2024 Reviewed by: Jessi Zavala APRN.APPLIED PSYCHOLOGY CHAIR - Fully Assessed Reason for Visit: Appointment [...] 5,) crtg Change every 72 hours. - gxpwje-ugbzznxt-iddstuh (CREON) 24,000-76,000 -120,000 unit cpDR Take 2 [...] Encounter Status:Closed by GAYE MATA on 07/21/24 GLUCOSE POCT GLUCOMETERS Collected: 07/17/2024 4:16 P M Status: F Source: [facility] TYPE CODE TESTS RESULT OUT OF RANGE REFERENCE UNITS LAB GLUPOC Glucose Poc Glucometers 299 mg/dL Result Comment: Random Gluco se Reference Range is dependent on time and content of last meal. Glucose of more than 200 mg/dL in a nonstressed, ambulatory subject supports the diagnosis of Diabetes Mellitus. PERFORMED BY: [facility] [address] [place] [address] PATHOLOGIST SPECIAL OFFICER [employer] ANDRE PREALTA M.D. Performed By: #### GLULS ### # Point of Care testing , GLUCOSE POCT GLUCOMETERS Collected: 07/17/2024 11:57 AM Status: F Source: [facility] TYPE CODE TESTS RESULT OUT OF RANGE REFERENCE UNITS LAB GLUPOC Glucose Poc Glucometers 341 mg/dL Result Comment: Random Gluco se Reference Range is dependent on time and content of last meal. Glucose of more than 200 mg/dL in a nonstressed, ambulatory subject supports the diagnosis of Diabetes Mellitus. PERFORMED BY: [facility] [address] [place] [address] PATHOLOGIST SPECIAL OFFICER [employer] ANDRE PERALTA M.D. Performed By: #### GLULS ### # Point of Care testing , GLUCOSE POCT GLUCOMETERS Collected: 07/17/2024 9:27 A M Status: F Source: [facility] TYPE CODE TESTS RESULT OUT OF RANGE REFERENCE UNITS LAB GLUPOC Glucose Poc Glucometers 386 mg/dL Result Comment: Random Gluco se Reference Range is dependent on time and content of last meal. Glucose of more than 200 mg/dL in a nonstressed, ambulatory subject supports the diagnosis of Diabetes Mellitus. PERFORMED BY: [address] [address] PATHOLOGIST SPECIAL OFFICER [employer] ANDRE PERALTA M.D. Performed By: #### GLULS ### # Point of Care testing , GLUCOSE POCT GLUCOMETERS Collected: 07/17/2024 9:25 A M Status: F Source: [facility] TYPE CODE TESTS RESULT OUT OF RANGE REFERENCE UNITS LAB GLUPOC Glucose Poc Glucometers 406 High Off Scale mg/dL Result Comment: Random Gluco se Reference Range is dependent on time and content of last meal. Glucose of more than 200 mg/dL in a nonstressed, ambulatory subject supports the diagnosis of Diabetes Mellitus. LAB COMM1 Commemt1 Result Comment: Glu2: Will R epeat Test LAB COMM2 Commemt2 WILL NOTIFY DR/CORE BAKER COMM3 Commemt3 Cleaned Meter Result Comment: PERFORMED BY : [address] [address] PATHOLOGIST SPECIAL OFFICER [employer] ANDRE PERALTA M.D. Performed By: #### GLULS ### # Point of Care testing , GLUCOSE POCT GLUCOMETERS Collected: 07/17/2024 7:39 A M Status: F Source: [facility] TYPE CODE TESTS RESULT OUT OF RANGE REFERENCE UNITS LAB GLUPOC Glucose Poc Glucometers 451 High Off Scale mg/dL Result Comment: Random Gluco se Reference Range is dependent on time and content of last meal. Glucose of more than 200 mg/dL in a nonstressed, ambulatory subject supports the diagnosis of Diabetes Mellitus. LAB COMM1 Commemt1 Result Comment: Glu2: WILL N OTIFY /KARIN PERFORMED BY: [address] [address] PATHOLOGIST SPECIAL OFFICER [employer] ANDRE PERALTA M.D. Performed By: #### GLULS ### # Point of Care testing , GLUCOSE POCT GLUCOMETERS Collected: 07/17/2024 7:37 A M Status: F Source: [facility] TYPE CODE TESTS RESULT OUT OF RANGE REFERENCE UNITS LAB GLUPOC Glucose Poc Glucometers 444 High Off Scale mg/dL Result Comment: Random Gluco se Reference Range is dependent on time and content of last meal. Glucose of more than 200 mg/dL in a nonstressed, ambulatory subject supports the diagnosis of Diabetes Mellitus. LAB COMM1 Commemt1 Result Comment: Glu2: Will R epeat Test PERFORMED BY: [facility] [address] [place] [address] PATHOLOGIST SPECIAL OFFICER [employer] ANDRE PERALTA M.D. Performed By: #### GLULS ### # Point of Care testing , PROTHROMBIN TIME INR Collected: 07/17/2024 5:21 AM S tatus: F Source: [facility] TYPE CODE TESTS RESULT OUT OF RANGE REFERENCE UNITS LAB R PT Prothrombin Time 14.5 High 9.0-12.9 s Result Comment: A hematocrit value greater than 55% may lead to inaccurate results in coagulation testing. Patients having hematocrit values >55% require a special collection tube for coagulation studies. Please contact the laboratory at [phone] for redraw instructions. LAB INR INR 1.3 Result Comment: INR Therapeu tic Range A) Pre- and Peroperative OAT started [...] valves: 3 - 4.5 Performed By: #### PT, CMP, A1C WTH eA, PTT, PATH SLIDE REV, DIFF CBC #### [facility] [address] [place] [id number] [place] PARTIAL THROMBOPLASTIN TIME Collected: 07/17/2024 5:2 1 AM Status: F Source: [facility] TYPE CODE TESTS RESULT OUT OF RANGE REFERENCE UNITS LAB PTT Partial Thromboplastin Time 30.6 Normal 25.1-36.5 s Result Comment: A hematocrit value greater than 55% may lead to inaccurate results in coagulation testing. Patients having hematocrit values >55% require a special collection tube for coagulation studies. Please contact the laboratory at [phone] for redraw instructions. PERFORMED BY: [facility] [address] [place] [address] PATHOLOGIST SPECIAL OFFICER [employer] ANDRE PERALTA M.D. Performed By: #### PT, CMP, A1C WTH eA, PTT, PATH SLIDE REV, DIFF CBC #### [facility] [address] [place] [address] [facility] COMPREHENSIVE METABOLIC PANEL Collected: 07/17/2024 5:21 AM Status: F Source: [facility] TYPE CODE TESTS RESULT OUT OF RANGE REFERENCE UNITS LAB GLU Glucose 443 Increased 70-100 mg/dL Result Comment: Random Gluco se Reference Range is dependent on time and content of last meal. Glucose of more than 200 mg/dL in a nonstressed, ambulatory subject supports the diagnosis of Diabetes Mellitus. ADA recommended reference range LAB BUN Blood Urea Nitrogen 20 Normal 7-25 mg/dL LAB CREATT Creatinine 1.03 Normal 0.70-1.30 mg/dL LAB GFReNR Estimated GFR >60.0 mL/Min LAB NA Sodium 131 Low 136-145 mmol/L LAB K Potassium 4.8 Normal 3.5-5.1 mmol/L LAB CL Chloride 96 Low 98-107 mmol/L LAB CO2 Carbon Dioxide 28.2 Normal 21.0-31.0 mmol/L LAB GAP Anion Gap 11.6 Normal 6.0-15.0 meq/L LAB CA Calcium 8.8 Normal 8.6-10.3 mg/dL LAB TP Total Protein 6.6 Normal 6.4-8.9 g/dL LAB ALB Albumin Level 3.6 Normal 3.5-5.7 g/dL LAB GLOB Globulin 3.0 g/dL LAB AGRATIO Albumin/Globulin Ratio 1.2 LAB BILIT Bilirubin,Total 0.6 Normal 0.3-1.0 mg/dL LAB AST Aspartate Amino Transferase 20 Normal 13-39 U/L LAB ALT Alanine Aminotransferase 18 Normal 7-52 U/L LAB ALP Alkaline Phosphatase 136 High 34-104 U/L LAB CRCLPHA Creatinine Clr Calc Pharmacy 45.38 Result Comment: PERFORMED BY : [facility] [address] [facility] [place] [address] PATHOLOGIST SPECIAL OFFICER [employer] ANDRE PERALTA M.D. Performed By: #### PT, CMP, A1C WTH eA, PTT, PATH SLIDE REV, DIFF CBC #### [facility] [address] [place] [id number] [facility] DIFF AND CBC Collected: 07/17/2024 5:21 AM Status: F Source: [facility] TYPE CODE TESTS RESULT OUT OF RANGE REFERENCE UNITS LAB WBC White Blood Count 4.8 Normal 4.1-10.5 10*3/ uL LAB UNWBC Uncorrected WBC 4.8 Normal 4.1-10.5 10*3/uL LAB RBC Red Blood Count 4.73 Normal 3.90-5.60 10*6/u L LAB HGB Hemoglobin 12.4 Low 13.0-17.0 g/dL LAB HCT Hematocrit 37.8 Low 38.8-50.0 % LAB MCV Mean Corpuscular Volume 80.0 Low 83.5-101 fL LAB MCH Mean Corpuscular Hemoglobin 26.3 Low 27.5-35.2 pg LAB MCHC Mean Corpuscular HGB Conc 32.8 Normal 32.5-35.6 g/dL LAB RDW Red Cell Distribution Width 19.7 High 12.0-14.8 % LAB PLT Platelet Count 229 Normal 150-450 10*3/uL LAB MPV Mean Platelet Volume 11.0 High 6.6-10.1 fL LAB SEG Segmented Neutrophils 77 High 50-70 % LAB BAND Band Neutrophils 1 Normal 0-5 % LAB LYMPH Lymphocytes 18 Normal 18-42 % LAB MON Monocytes 4 Normal 2-11 % LAB POLY Polychromasia Slight LAB HYPO Hypochromasia Marked LAB POIK Poikilocytosis Marked LAB ANISO Anisocytosis Moderate LAB MICR Microcytosis Slight LAB TAVIA Schistocytes Moderate LAB TRGT Target Cells Moderate LAB HELM Helmet Cells Slight LAB CREN Crenated RBC Moderate LAB ACAN Acanthocytes Marked LAB PLT EST Platelet Estimate Normal Normal LAB PLTM Platelet Morphology Normal Normal Result Comment: PERFORMED BY : [facility] [address] [place] [address] PATHOLOGIST SPECIAL OFFICER [employer] ANDRE PERALTA M.D. Performed By: #### PT, CMP, A1C WTH eA, PTT, PATH SLIDE REV, DIFF CBC #### [facility] [address] [place] [id number] [facility] PATHOLOGIST SLIDE REVIEW Collected: 07/17/2024 5:21 A M Status: F Source: [facility] TYPE CODE TESTS RESULT OUT OF RANGE REFERENCE UNITS LAB PATH SLIDE REV Pathologist Slide Review Ordered Path Review Result Comment: PERFORMED BY : [place] [address] PATHOLOGIST SPECIAL OFFICER [employer] ANDRE PERALTA M.D. Performed By: #### PT, CMP, A1C WTH eA, PTT, PATH SLIDE REV, DIFF CBC #### [facility] [address] [place] [id number] [facility] A1C WITH ESTIMATED AVERAGE GLU Collected: 07/17/2024 5:21 AM Status: F Source: [facility] TYPE CODE TESTS RESULT OUT OF RANGE REFERENCE UNITS LAB .A1C Hemoglobin A1C 9.8 High 4.3-5.6 % Result Comment: Increased ri sk for diabetes: 5.7 - 6.4 diabetes: >6.4 glycemic control for adults with diabetes: <7.0 LAB eAG Estimated Average Glucose 235 mg/dL Result Comment: PERFORMED BY : [place] [address] PATHOLOGIST SPECIAL OFFICER [employer] ANDRE PERALTA M.D. Performed By: #### PT, CMP, A1C WTH eA, PTT, PATH SLIDE REV, DIFF CBC #### [place] [id number] [facility] RESPIRATORY (UPPER) PANEL, PCR Observed: 07/17/2024 4:15 AM Status: F Source: [facility] Results called at 0548 on 07/17/24 Adenovirus [...] COVID-19 Detected/Not Detected Not detected Blank Space FLUA TEST INCLUDES Influenza A tests for the following clinically FLUA TEST INCLUDES significant subtypes: FLUA TEST INCLUDES - Influenza A FLUA TEST INCLUDES - Influenza A H1 FLUA TEST INCLUDES - Influenza A H1 2009 FLUA TEST INCLUDES - Influenza A H3 Blank Space PERFORMED BY: [place] [address] PATHOLOGIST SPECIAL OFFICER [employer] ANDRE PERALTA M.D. Performed By: #### RESP PANE L UPP., BIOFIRECOVNOTDE #### [facility] [address] [place] [address] BIOFIRE NOT DETECTED Collected: 07/17/2024 4:15 AM S tatus: F Source: [facility] TYPE CODE TESTS RESULT OUT OF RANGE REFERENCE UNITS LAB BIOFIRECOVNOTDE BioFire Not Detected Not Detected Not Detecte Result Comment: This is a du plicate RP2.1 COVID (PCR) result to be used for statistical tracking purpose only. PERFORMED BY: [place] [id number] PATHOLOGIST SPECIAL OFFICER [employer] ANDRE PERALTA M.D. Performed By: #### RESP PANE L UPP., BIOFIRECOVNOTDE #### [facility] [address] [place], [place] [id number] [facility] L Observed: 07/17/2024 12:00 AM Status: F Source: [facility] ----- ------- Specimen: Received: 07/17/24 Status: LYUDMILA Sangeetha Num: [id number] Spec Type: Impression Subm Dr: Indra Guillory MD Tissues: PATHPER Procedures: PATHREVIEW ----- ------- Age/ Patient Sex Location Account Attending Physician ----- ------- Ashwini Vickers 89/M 4N [id number] Lisa Hidalgo MD ----- ------- SPEC NUM: [id number] RECD: 07/17/24 STATUS: LYUDMILA SANGEETHA NUM: [id number] MARANDA: 07/17/24- SUBM DR: Indra Guillory MD ENTERED: 07/17/[address]: SPEC TYPE: Impression DEPT: DC ORDERED: PATHREVIEW ORDERED: PATHREVIEW Pathologist Review Abnormal [...] CBC laboratory follow- ups are also suggested [facility] [id number] ----- ------- Specimen: [id number] Received: 07/17/24 Status: LYUDMILA Sangeetha Num: [id number] Spec Type: Impression Subm Dr: Indra Guillory MD Tissues: PATHPER Procedures: PATHREVIEW ----- ------- Patient: NabilisaakAshwini J [id number] (Continued) ----- ------- Specimen: Received: 07/17/24 (Continued) Signed (signature on file) Donovan Bunch MD 07/17/24 1128 ----- ------- Specimen: Received: 07/17/24 Status: LYUDMILA Gómez Num: [id number] Spec Type: Impression Subm Dr: Indra Guillory MD Tissues: PATHPER Procedures: PATHREVIEW ----- ------- Patient: Ashwini Vickers [id number] (Continued) ----- ------- Specimen: Received: 07/17/24 (Continued) CBC Date Time Test Result Flag (u) Normal Range 07/16/24 1230 Neut % (Auto) 64.8 . % Lymp % (Auto) 18.9 . % [place] % (Auto) 12.8 . % Eos % (Auto) 2.7 . % Baso % (Auto) 0.8 . % NRBC% 0.2 0-0.5 /100 WBC Neut # (Auto) 4.7 1.8-7.7 x10E3/uL Lymph # (Auto) 1.4 1.00-4.8 x10E3/uL [place] # (Auto) 0.9 H 0.0-0.8 x10E3/uL Eos [...] 1 0-5 % Lymph 18 18-42 % [place] 4 2-11 % Polychrom Slight Hypochrom Marked Poik Marked Aniso Moderate Micro Slight Schisto Moderate Target Moderate Helmet Cells Slight Crenated RBC Moderate Acantho Marked Plt Est Normal Normal Plt Morphology Normal Normal ----- ------- ----- ------- Specimen: [id number] Received: 07/17/24 Status: LYUDMILA Gómez Num: [id number] Spec Type: Impression Subm Dr: Indra Guillory MD Tissues: PATHPER Procedures: PATHREVIEW ----- ------- Patient: RanchoAshwini J [id number] (Continued) ----- ------- Signed (signature on file) Donovan Bunch MD 07/17/24 1128 GLUCOSE POCT GLUCOMETERS Collected: 07/16/2024 7:58 P M Status: F Source: [facility] TYPE CODE TESTS RESULT OUT OF RANGE REFERENCE UNITS LAB GLUPOC Glucose Poc Glucometers 327 mg/dL Result Comment: Random Gluco se Reference Range is dependent on time and content of last meal. Glucose of more than 200 mg/dL in a nonstressed, ambulatory subject supports the diagnosis of Diabetes Mellitus. PERFORMED BY: [facility] [place] [address] PATHOLOGIST SPECIAL OFFICER [employer] ANDRE PERALTA M.D. Performed By: #### GLULS ### # Point of Care testing , CT ANGIO CHEST PE PROTOCOL Observed: 11/2024 4:36 PM Status: COMPLETED Source: [facility] [place] [address] [place] [address] CT Scan Report Signed Patient: Ashiwni Vickers MR#: [id number] 353 : 1935 Acct:[id number] Age/Sex: 89 / M ADM Date: 07/16/24 Loc: ER Room: Type: [facility] ER Attending Dr: Copies to: Bertin [...] Fidencio Valentin M.D.07/16/2024 4:48 PM Dictation Location: [place] [address] Transcribed By: [facility] 07/16/24 1648 Dictated By: Fidencio Valentin II, MD 07/16/24 1636 Signed By: <Electronically signed by Fidencio Valentin II, MD in OV> 07/16/24 1648 TROPONIN I HIGH SENSITIVITY Collected: 07/16/2024 2:3 7 PM Status: F Source: [facility] TYPE CODE TESTS RESULT OUT OF RANGE REFERENCE UNITS LAB HS TROP Troponin I High Sensitivity 29.4 High 0.0-20.0 pg/mL Result Comment: PERFORMED BY : [place] [address] PATHOLOGIST SPECIAL OFFICER [employer] ANDRE PERALTA M.D. Performed By: #### HS TROP # ### [address] ECG 12 LEAD ECG Observed: 07/16/2024 2:04 PM Status: COMPLETED Source: [facility] [place] [address] Electrocardiograph Report Signed Patient: Ashwini Vickers MR#: [id number] 353 : 1935 Acct:[id number] Age/Sex: 89 / M ADM Date: 07/16/24 Loc: Room: [address] [place] [address] Type: ADM INOo Attending Dr: Indra Guillory MD Ordering Provider: Bertin eYpez DO Date of Service: 07/16/2412/04/1411 ECG/ECG 12 [...] Atrial-paced rhythm Confirmed by Bertin Yepez DO ([id number]) on 07/16/2024 8:00:21 PM Referred By: Electronically Signed By: Bertin Yepez DO Transcribed By: MUS Signed By Bertin Yepez DO 1999 XR CHEST 2V* Observed: 07/16/2024 1:02 PM Status: COMPLETED Source: [facility] [place] [id number] XRay Report Signed Patient: Ashwini Vickers MR#: [id number] 353 : 1935 Acct:[id number] Age/Sex: 89 / M ADM Date: 07/16/24 [...] Fidencio Valentin M.D.07/16/2024 1:03 PM Dictation Location: [id number]-17 Transcribed By: [facility] 07/16/24 1303 Dictated By: Fidencio Valentin II, MD 07/16/24 1302 Signed By: <Electronically signed by Fidencio Valentin II, MD in OV> 07/16/24 1303 COMPLETE BLOOD COUNT AUTO DIFF Collected: 07/16/2024 12:30 PM Status: F Source: [facility] TYPE CODE TESTS RESULT OUT OF RANGE REFERENCE UNITS LAB WBC White Blood Count 7.2 Normal 4.1-10.5 10*3/uL LAB UNWBC Uncorrected WBC 7.2 Normal 4.1-10.5 10*3/uL LAB RBC Red Blood Count 4.50 Normal 3.90-5.60 10*6/u L LAB HGB Hemoglobin 11.7 Low 13.0-17.0 g/dL LAB HCT Hematocrit 35.8 Low 38.8-50.0 % LAB MCV Mean Corpuscular Volume 79.7 Low 83.5-101 fL LAB MCH Mean Corpuscular Hemoglobin 25.9 Low 27.5-35.2 pg LAB MCHC Mean Corpuscular HGB Conc 32.5 Normal 32.5-35.6 g/dL LAB RDW Red Cell Distribution Width 19.9 High 12.0-14.8 % LAB PLT Platelet Count 210 Normal 150-450 10*3/uL LAB MPV Mean Platelet Volume 10.9 High 6.6-10.1 fL LAB MDW Monocyte Distribution Width 17.82 Normal 0.00-20.00 % Result Comment: For adults i n ED, MDW > 20.0 may be associated with a higher risk of sepsis during the first 12 hrs of hospital admission LAB NE% Neutrophils % (Auto) 64.8 . % LAB LY% Lymphocytes % (Auto) 18.9 . % LAB MO% Monocytes % (Auto) 12.8 . % LAB EO% Eosinophils % (Auto) 2.7 . % LAB BA% Basophils % (Auto) 0.8 . % LAB NRBC% NRBC% 0.2 Normal 0-0.5 /100{WBC } LAB NE# Neutrophils # (Auto) 4.7 Normal 1.8-7.7 10*3/uL LAB LY# Lymphocytes # (Auto) 1.4 Normal 1.00-4.8 10*3/uL LAB MO# Monocytes # (Auto) 0.9 High 0.0-0.8 10*3/uL LAB EO# Eosinophils # (Auto) 0.2 Normal 0.0-0.45 10*3/uL LAB BA# Basophils # (Auto) 0.1 Normal 0.0-0.2 10*3/uL Result Comment: PERFORMED BY : [address] [address] PATHOLOGIST SPECIAL OFFICER [employer] ANDRE PERALTA M.D. Performed By: #### PT, BMP, BNP, HS TROP, CK, CBC #### [facility] [address] [place] [id number] [facility] BASIC METABOLIC PANEL Collected: 2024 12:30 PM Status: F Source: [facility] TYPE CODE TESTS RESULT OUT OF RANGE REFERENCE UNITS LAB GLU Glucose 191 High 70-100 mg/dL Result Comment: Random Gluco se Reference Range is dependent on time and content of last meal. Glucose of more than 200 mg/dL in a nonstressed, ambulatory subject supports the diagnosis of Diabetes Mellitus. ADA recommended reference range LAB BUN Blood Urea Nitrogen 18 Normal 7-25 mg/dL LAB CREATT Creatinine 0.82 Normal 0.70-1.30 mg/dL LAB GFReNR Estimated GFR >60.0 mL/Min LAB NA Sodium 133 Low 136-145 mmol/L LAB K Potassium 4.2 Normal 3.5-5.1 mmol/L LAB CL Chloride 99 Normal 98-107 mmol/L LAB CO2 Carbon Dioxide 28.0 Normal 21.0-31.0 mmol/L LAB GAP Anion Gap 10.2 Normal 6.0-15.0 meq/L LAB CA Calcium 8.8 Normal 8.6-10.3 mg/dL LAB CRCLPHA Creatinine Clr Calc Pharmacy 60.91 Result Comment: PERFORMED BY : [place] [address] PATHOLOGIST SPECIAL OFFICER [employer] ANDRE PERALTA M.D. Performed By: #### PT, BMP, BNP, HS TROP, CK, CBC #### [place] [id number] [facility] B-TYPE NATRIURETIC PEPTIDE Collected: 07/16/2024 12:3 0 PM Status: F Source: [facility] TYPE CODE TESTS RESULT OUT OF RANGE REFERENCE UNITS LAB BNP B-Type Natriuretic Peptide 2052.0 High 5-100 pg/mL Result Comment: PERFORMED BY : [place] [id number] PATHOLOGIST SPECIAL OFFICER [employer] ANDRE PERALTA M.D. Performed By: #### PT, BMP, BNP, HS TROP, CK, CBC #### [facility] [address] [place] [id number] [facility] CREATINE KINASE Collected: 12:30 PM Status: F Source: [facility] TYPE CODE TESTS RESULT OUT OF RANGE REFERENCE UNITS LAB CK Creatine Kinase 136 Normal 30-223 U/L Performed By: #### PT, BMP, BNP, HS TROP, CK, CBC #### [place] [id number] [facility] TROPONIN I HIGH SENSITIVITY Collected: 07/16/2024 12: 30 PM Status: F Source: [facility] TYPE CODE TESTS RESULT OUT OF RANGE REFERENCE UNITS LAB HS TROP Troponin I High Sensitivity 32.1 High 0.0-20.0 pg/mL Result Comment: PERFORMED BY : [place] [address] PATHOLOGIST SPECIAL OFFICER [employer] ANDRE PERALTA M.D. Performed By: #### PT, BMP, BNP, HS TROP, CK, CBC #### [place] [id number] [facility] PROTHROMBIN TIME INR Collected: 12:30 PM Status: F Source: [facility] TYPE CODE TESTS RESULT OUT OF RANGE REFERENCE UNITS LAB R PT Prothrombin Time 14.3 High 9.0-12.9 s Result Comment: A hematocrit value greater than 55% may lead to inaccurate results in coagulation testing. Patients having hematocrit values >55% require a special collection tube for coagulation studies. Please contact the laboratory at [phone] for redraw instructions. LAB INR INR 1.2 Result Comment: INR Therapeu tic Range A) Pre- and Peroperative OAT started [...] heart valves: 3 - 4.5 PERFORMED BY: [place] [address] PATHOLOGIST SPECIAL OFFICER [employer] ANDRE PERALTA M.D. Performed By: #### PT, BMP, BNP, HS TROP, CK, CBC #### [address] [address] [facility] ECG 12 LEAD ECG Observed: 07/16/2024 11:42 AM Status: COMPLETED Source: [facility] [place] [address] Electrocardiograph Report Signed Patient: Ashwini Vickers MR#: [id number] : 1935 Acct:[id number] Age/Sex: 89 / M ADM Date: 07/16/24 Loc: Room: [address] [place] [address] Type: ADM INOo Attending Dr: Indra Guillory [...] Atrial-paced rhythm Confirmed by Bertin Yepez DO ([id number]) on 07/16/2024 8:01:11 PM Referred By: Electronically Signed By: Bertin Yepez DO Transcribed By: MUS Signed By Bertin Yepez DO 2000 CNPN Observed: 07/13/2024 12:00 AM Status: COMPLETED Source: [facility] Telephone ([employer]) ASHWINI VICKERS ([id number]) 1935 M Date Time Provider Department 07/13/24 [...] training for 07/25/24 at 1-3 pm at [facility]. Location. Patient's Mychart status is PENDING, invite resent via text and to create account. Email sent to [email or web address] with clinic address, time, date, and what [...] Known Allergies) Date Reviewed: 07/06/2024 Reviewed by: Jessi Zavala APRN.APPLIED PSYCHOLOGY CHAIR - Fully Assessed Reason for Visit: Omnipod [...] 5,) crtg Change every 72 hours. - uvornq-vahjamrw-elxdurb (CREON) 24,000-76,000 -120,000 unit cpDR Take 2 [...] Encounter Status:Closed by GAYE MATA on 07/13/24 KALANIN Observed: 07/13/2024 12:00 AM Status: COMPLETED Source: [facility] Telephone ([employer]) ASHWINI VICKERS ([id number]) 1935 M Date Time Provider Department 07/13/24 GAYE MATASarah During your visit today, we recorded the following information about you: Gaye Mata RN 07/13/2024 4:14 PM Signed In error Allergies As of Date: 07/13/2024 (No Known Allergies) Date Reviewed: 07/06/2024 Reviewed by: Jessi Zavala APRN.APPLIED PSYCHOLOGY CHAIR - Fully Assessed Prescriptions as of 07/13/2024 [...] 5,) crtg Change every 72 hours. - qrxkzs-tqggnbqw-ccpnaqk (CREON) 24,000-76,000 -120,000 unit cpDR Take 2 [...] Encounter Status:Closed by GAYE MATA on 07/13/24 CNOV Observed: 07/06/2024 11:00 AM Status: COMPLETED Source: [facility] Office Visit (ENDOLN) ASHWINI VICKERS ([id number]) 1935 M Date Time Provider Department 07/06/24 11:00 AM JESSI ZAVALA ENDOLN During your visit today, we recorded the following information about you: Pulse Blood pressure Weight 60/minute 114/69 68.3 kg Jessi Zavala APRN.CNP 07/06/2024 12:36 PM Signed Endocrinology Initial Diabetes Assessment Ashwini Vickers is here for a consultation regarding: DM Type 2 My final recommendations will be communicated back to the requesting physician by way of shared Medical record or letter to requesting physician via US mail. PCP is DO Marie Rodriguez ([facility]) [address] [place] [address] History of Present Illness Ashwini Vickers is a 89 year old male presents today for evaluation of DM Type 1. Here with and son. 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 Per patient, this was done due to [...] (PROBIOTIC-10 ORAL) Take by mouth once daily. xmbato-drnqhyzs-gvofjms (CREON) 24,000-76,000 -120,000 unit cpDR Take 2 capsules by mouth three times daily with meals. and 1 with snacks (8/day) Digestive Enzyme Mixtures lutein-zeaxanthin 25-5 mg cap Take by mouth once daily. Alternative Therapy - Antioxidant Omeprazole Magnesium 20 mg tablet Take 20 mg by mouth. Gastric Acid Secretion Edge Bonder - Proton Pump Inhibitors (PPIs) PARoxetine (PAXIL) 40 mg tablet Take 40 mg by mouth every morning. Antidepressant - Selective Serotonin Reuptake Inhibitors (SSRIs) tamsulosin (FLOMAX) 0.4 mg Take 0.4 mg by mouth. Prostatic Hypertrophy Agent - kimqw-3-Uxvmfnmjpqcy Antagonists Physical Activity: No formal program Diet: [...] kg (150 lb 9.2 oz) BMI 21.61 kg/m? General appearance: Well appearing, alert, in no [...] ains abnormal data COMPREHENSIVE METABOLIC PANEL Order: [id number] Component Ref Range AND Units 5 mo ago Sodium 134 - [...] that does not use a race coefficient. Resulting [facility] MAIN LAB Specimen Collected: 01/24/24 6:05 AM Performed by: [employer] Last Resulted: 01/24/24 7:22 AM Received From: [facility] Result Received: 07/06/24 9:37 AM Impression/Recommendations IMPRESSION Ashwini Vickers is a 89 year old here [...] LDL , TG LIPID PANEL (EXTERNAL) Order: [id number] Component Ref Range AND Units 5 mo ago Cholesterol 150 - 200 mg/dL 97 Low Triglycerides 27 - 150 mg/dL 38 HDL Cholesterol >39 mg/dL 50 VLDL 0 - 30 mg/dL 8 LDL (calc) <130 mg/dL 39 Cholesterol:HDL Ratio 1.0 - 5.0 1.9 Resulting Agency [facility] LAB Specimen Collected: 01/22/24 6:06 AM Performed by: [employer] Last Resulted: 01/22/24 1:58 PM Received From: [facility] Result Received: 07/06/24 9:37 AM -- This [...] of this document that has been added/copied AND pasted from other documents has been reviewed for accuracy and updated as appropriate at the time of the patient encounter I spent a total of 67 minutes on the date of the service which included preparing to see the patient, iesf-pc-ucbl patient care, completing clinical documentation, counseling and educating the patient/family/caregiver, ordering medications, tests, or procedures, and communicating results to the patient/family/caregiver. Jessi Zavala APRN.CNP (Signed electronically to expedite mailing) Jessi Zavala APRN.CNP 07/06/2024 11:59 AM Signed Plan Stop: Lantus 12 units at night [...] 1 ounce protein) 150 calories or less ? [place] (1 slice bread, 1-2 slices turkey or lean meat), lettuce, tomato, 1 tsp light mayonnaise 2 slices light or reduced-calorie bread, 1 Tbsp peanut butter ? cup blueberries, raspberries, or blackberries, 1 slice string cheese (choose a low fat cheese with 3 grams fat or less per slice) ? cup fresh pineapple with ? cup low fat cottage cheese 5-6 crackers with ? cup tuna salad or tuna kit 3 cups popcorn (try light version or ? mini bag popcorn) 1 small piece fruit (one that you can tuck in your palm), 10 nuts (try the 100 calorie packs of nuts to limit the portion size since these are high in calories) 1 small granola bar (Lutheran Oats makes smaller granola bar or Special K bar), 10 nuts (try using the 100 calorie snack nut packs to limit the portion) Protein Cereal Bar (such as a [employer] Protein Bar) Low Calorie Protein Shake (EAS Advantage Carb Control), 1 small apple, orange, peach, pear (one that you can tuck in your palm) Slovak Yogurt (has 20 grams of carb, 2 ounces of lean protein) or 6 ounce light yogurt 1/3 cup hummus with celery sticks and baby carrots ? 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 #[id number] HEMOGLOBIN A1C (POC) [1837746] Order #: [id number]. #:[id number] glucagon (GVOKE HYPOPEN 2-PACK) 1 mg/0.2 mL auto-injectorInject 1 mg subcutaneously as needed.Disp: 0.4 mLRfl: 3 insulin glargine (LANTUS) 100 unit/mL injectionIn case of pump failureDisp: Rfl: GLUCOSE, BLOOD (POC) [6892711] Order #: [id number] GLUCOSE, BLOOD (POC) [2227590] Order #: [id number]. #:[id number] insulin pump cart,auto,BT,G6/7 (OMNIPOD 5 G6-G7 PODS, GEN 5,) crtgChange every 72 hours.Disp: 10 EachRfl: 5 Prescriptions as of 07/10/2024 - insulin aspart U-100 (NOVOLOG U-100 INSULIN [...] 5,) crtg Change every 72 hours. - hmemnt-qyamzuor-slbmkul (CREON) 24,000-76,000 -120,000 unit cpDR Take 2 [...] Resolved IPMN (intraductal papillary mucinous neoplasm) *06/23/2018 Other instructions from your clinician: Plan Stop: Lantus 12 units at night [...] 1 ounce protein) 150 calories or less ? [place] (1 slice bread, 1-2 slices turkey or lean meat), lettuce, tomato, 1 tsp light mayonnaise 2 slices light or reduced-calorie bread, 1 Tbsp peanut butter ? cup blueberries, raspberries, or blackberries, 1 slice string cheese (choose a low fat cheese with 3 grams fat or less per slice) ? cup fresh pineapple with ? cup low fat cottage cheese 5-6 crackers with ? cup tuna salad or tuna kit 3 cups popcorn (try light version or ? mini bag popcorn) 1 small piece fruit (one that you can tuck in your palm), 10 nuts (try the 100 calorie packs of nuts to limit the portion size since these are high in calories) 1 small granola bar (Lutheran Oats makes smaller granola bar or Special K bar), 10 nuts (try using the 100 calorie snack nut packs to limit the portion) Protein Cereal Bar (such as a [employer] Protein Bar) Low Calorie Protein Shake (EAS Advantage Carb Control), 1 small apple, orange, peach, pear (one that you can tuck in your palm) Slovak Yogurt (has 20 grams of carb, 2 ounces of lean protein) or 6 ounce light yogurt 1/3 cup hummus with celery sticks and baby carrots ? Low Carb Light Wrap (1-2 slices lean meat), lettuce, tomato, 1 tsp light Maori dressing (There are many options which are both high in fiber and low in calories--100 calories or less per wrap) Prescriptions ordered this encounter Disp Refills Start End GVOKE HYPOPEN 2-PACK 1 MG/0.2 ML SUB* 0.4 * 3 07/06/2024 Route: SUBCUTANEOUS Sig: Inject 1 mg subcutaneously as needed. INSULIN GLARGINE (U-100) 100 UNIT/ML* 07/06/2024 Class: Med Update Cmt: Generic or brand: dispense product preferred by patient/insurance unless NORMA flag is selected. Sig: In case of pump failure OMNIPOD 5 G6-G7 PODS (GEN 5) SUBCUTA* 10 E* 5 07/06/2024 Sig: Change every 72 hours. Medications Discontinued During This Encounter Prescriptions - insulin glargine (LANTUS) 100 unit/mL injection (Discontinued) Inject 12 Units subcutaneously. Disposition: Return in about 6 weeks (around 08/17/2024). Follow-up and Disposition History for Encounter Date Provider Department Center 07/06/2024 [id number], KIRSTEN ENDOLN [facility] Encounter Status:Closed by JESSI ZAVALA on 07/06/24 PROGRESS Observed: 07/06/2024 11:00 AM Status: COMPLETED Source: [facility] ID: [id number] Author: JESSI ZAVALA APRN.APPLIED PSYCHOLOGY CHAIR Service: ? Author Type: Nurse Practitioner Type: Progress Notes Filed: 07/06/2024 12:36 Note Text: Endocrinology Initial Diabetes Assessment Ashwini Vickers is here for a consultation regarding: DM Type 2 My final recommendations will be communicated back to the requesting physician by way of shared Medical record or letter to requesting physician via US mail. PCP is DO Marie Rodriguez ([facility]) [address] [place] [address] History of Present Illness Ashwini Vickers is a 89 year old male presents today for evaluation of DM Type 1. Here with and son. 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 Per patient, this was done due to [...] (PROBIOTIC-10 ORAL) Take by mouth once daily. wnzoeh-afuxgtbe-cyonnrd (CREON) 24,000-76,000 -120,000 unit cpDR Take 2 capsules by mouth three times daily with meals. and 1 with snacks (8/day) Digestive Enzyme Mixtures lutein-zeaxanthin 25-5 mg cap Take by mouth once daily. Alternative Therapy - Antioxidant Omeprazole Magnesium 20 mg tablet Take 20 mg by mouth. Gastric Acid Secretion Edge Bonder - Proton Pump Inhibitors (PPIs) PARoxetine (PAXIL) 40 mg tablet Take 40 mg by mouth every morning. Antidepressant - Selective Serotonin Reuptake Inhibitors (SSRIs) tamsulosin (FLOMAX) 0.4 mg Take 0.4 mg by mouth. Prostatic Hypertrophy Agent - sezdl-5-Edrfqhhcjcaw Antagonists Physical Activity: No formal program Diet: [...] kg (150 lb 9.2 oz) BMI 21.61 kg/m? General appearance: Well appearing, alert, in no [...] ains abnormal data COMPREHENSIVE METABOLIC PANEL Order: [id number] Component Ref Range AND Units 5 mo ago Sodium 134 - [...] that does not use a race coefficient. Resulting [facility] MAIN LAB Specimen Collected: 01/24/24 6:05 AM Performed by: [employer] Last Resulted: 01/24/24 7:22 AM Received From: [facility] Result Received: 07/06/24 9:37 AM Impression/Recommendations IMPRESSION Ashwini Vickers is a 89 year old here [...] Glucagon sent to pharmacy. Extensive teaching provided regardinghypoglycemia protocols and provide detailed instructions on AVS. [...] LDL , TG LIPID PANEL (EXTERNAL) Order: [id number] Component Ref Range AND Units 5 mo ago Cholesterol 150 - 200 mg/dL 97 Low Triglycerides 27 - 150 mg/dL 38 HDL Cholesterol >39 mg/dL 50 VLDL 0 - 30 mg/dL 8 LDL (calc) <130 mg/dL 39 Cholesterol:HDL Ratio 1.0 - 5.0 1.9 Resulting Agency [facility] LAB Specimen Collected: 01/22/24 6:06 AM Performed by: [employer] Last Resulted: 01/22/24 1:58 PM Received From: [facility] Result Received: 07/06/24 9:37 AM -- This [...] of this document that has been added/copied AND pasted from other documents has been reviewed for accuracy and updated as appropriate at the time of the patient encounter I spent a total of 67 minutes on the date of the service which included preparing to see the patient, vafd-yj-zkca patient care, completing clinical documentation, counseling and educating the patient/family/caregiver, ordering medications, tests, or procedures, and communicating results to the patient/family/caregiver. Jessi Zavala APRN.KALANI (Signed electronically to expedite mailing) JEVON Observed: 07/06/2024 12:00 AM Status: COMPLETED Source: [facility] Telephone (ENDOLN) ASHWINI VICKERS ([id number]) 1935 M Date Time Provider Department 07/06/24 JESSI ZAVALA During your visit today, we recorded the following information about you: Jessi Zavala APRN.KALANI 07/06/2024 4:09 PM Signed Please update patient [...] for training. I reached out to our lead presser and am waiting to hear back, but hopefully can get him set up for training in the next two weeks. Mireya Ny MA 07/07/2024 4:31 PM Signed Called patient. No answer. [facility] to call [phone] to retrieve below message from Jessi Mckinney APRN.CNP 07/13/2024 8:33 AM Signed Please call back patient to see how he is doing since we made adjustments to his regimen. I did reach out to the Omnipod parent trainer at [place] and she said she would be reaching out. I want to make sure this gets scheduled and that she was able to reach him. Buffy Arana MA 07/13/2024 4:06 PM Signed Called and spoke with patient He is doing well He stated that he just got scheduled with the parent trainer today will call the office if he needs anything Jessi Zavala APRN.CNP 07/13/2024 4:14 PM Signed Noted, thank you! Allergies As of Date: 07/06/2024 (No Known Allergies) Date Reviewed: 07/06/2024 Reviewed by: Jessi Zavala APRN.KALANI - Fully Assessed Prescriptions as of 07/13/2024 [...] 5,) crtg Change every 72 hours. - yuqfxi-odiewtpf-lamypis (CREON) 24,000-76,000 -120,000 unit cpDR Take 2 [...] papillary mucinous neoplasm) *06/23/2018 Encounter Status:Closed by JESSI ZAVALA on 07/06/24 GLUCOSE POCT GLUCOMETERS Collected: 06/21/2024 2:33 P M Status: F Source: [facility] TYPE CODE TESTS RESULT OUT OF RANGE REFERENCE UNITS LAB GLUPOC Glucose Poc Glucometers 572 High Off Scale mg/dL Result Comment: Random Gluco se Reference Range is dependent on time and content of last meal. Glucose of more than 200 mg/dL in a nonstressed, ambulatory subject supports the diagnosis of Diabetes Mellitus. LAB COMM1 Commemt1 Result Comment: Glu2: Will R epeat Test LAB COMM2 Commemt2 WILL NOTIFY DR/CORE BAKER COMM3 Commemt3 Cleaned Meter Result Comment: PERFORMED BY : [address] [place] [address] PATHOLOGIST SPECIAL OFFICER [employer]OMAT ANDRE PERALTA M.D. Performed By: #### GLULS ### # Point of Care testing , GLUCOSE POCT GLUCOMETERS Collected: 06/21/2024 2:32 P M Status: F Source: [facility] TYPE CODE TESTS RESULT OUT OF RANGE REFERENCE UNITS LAB GLUPOC Glucose Poc Glucometers 552 High Off Scale mg/dL Result Comment: Random Gluco se Reference Range is dependent on time and content of last meal. Glucose of more than 200 mg/dL in a nonstressed, ambulatory subject supports the diagnosis of Diabetes Mellitus. LAB COMM1 Commemt1 Result Comment: Glu2: Will R epeat Test LAB COMM2 Commemt2 WILL NOTIFY DR/CORE BAKER COMM3 Commemt3 Cleaned Meter Result Comment: PERFORMED BY : [facility] [address] [address] PATHOLOGIST SPECIAL OFFICER [employer] ANDRE PERALTA M.D. Performed By: #### GLULS ### # Point of Care testing , GLUCOSE POCT GLUCOMETERS Collected: 06/21/2024 11:49 AM Status: F Source: [facility] TYPE CODE TESTS RESULT OUT OF RANGE REFERENCE UNITS LAB GLUPOC Glucose Poc Glucometers 375 mg/dL Result Comment: Random Gluco se Reference Range is dependent on time and content of last meal. Glucose of more than 200 mg/dL in a nonstressed, ambulatory subject supports the diagnosis of Diabetes Mellitus. PERFORMED BY: [address] [place] [address] PATHOLOGIST SPECIAL OFFICER [employer] ANDRE PERALTA M.D. Performed By: #### GLULS ### # Point of Care testing , GLUCOSE POCT GLUCOMETERS Collected: 06/21/2024 11:48 AM Status: F Source: [facility] TYPE CODE TESTS RESULT OUT OF RANGE REFERENCE UNITS LAB GLUPOC Glucose Poc Glucometers 437 High Off Scale mg/dL Result Comment: Random Gluco se Reference Range is dependent on time and content of last meal. Glucose of more than 200 mg/dL in a nonstressed, ambulatory subject supports the diagnosis of Diabetes Mellitus. LAB COMM1 Commemt1 Result Comment: Glu2: Will R epeat Test PERFORMED BY: [facility] [address] [place] [address] PATHOLOGIST SPECIAL OFFICER [employer] ANDRE PERALTA M.D. Performed By: #### GLULS ### # Point of Care testing , GLUCOSE POCT GLUCOMETERS Collected: 06/21/2024 7:53 A M Status: F Source: [facility] TYPE CODE TESTS RESULT OUT OF RANGE REFERENCE UNITS LAB GLUPOC Glucose Poc Glucometers 210 mg/dL Result Comment: Random Gluco se Reference Range is dependent on time and content of last meal. Glucose of more than 200 mg/dL in a nonstressed, ambulatory subject supports the diagnosis of Diabetes Mellitus. PERFORMED BY: [facility] [address] [place] [address] PATHOLOGIST SPECIAL OFFICER [employer] ANDRE PERALTA M.D. Performed By: #### GLULS ### # Point of Care testing , GLUCOSE POCT GLUCOMETERS Collected: 06/21/2024 1:53 A M Status: F Source: [facility] TYPE CODE TESTS RESULT OUT OF RANGE REFERENCE UNITS LAB GLUPOC Glucose Poc Glucometers 332 mg/dL Result Comment: Random Gluco se Reference Range is dependent on time and content of last meal. Glucose of more than 200 mg/dL in a nonstressed, ambulatory subject supports the diagnosis of Diabetes Mellitus. PERFORMED BY: [address] [address] PATHOLOGIST SPECIAL OFFICER [employer] ANDRE PERALTA M.D. Performed By: #### GLULS ### # Point of Care testing , GLUCOSE POCT GLUCOMETERS Collected: 06/20/2024 8:50 P M Status: F Source: [facility] TYPE CODE TESTS RESULT OUT OF RANGE REFERENCE UNITS LAB GLUPOC Glucose Poc Glucometers 134 mg/dL Result Comment: Random Gluco se Reference Range is dependent on time and content of last meal. Glucose of more than 200 mg/dL in a nonstressed, ambulatory subject supports the diagnosis of Diabetes Mellitus. PERFORMED BY: [address] [address] PATHOLOGIST SPECIAL OFFICER [employer] ANDRE PERALTA M.D. Performed By: #### GLULS ### # Point of Care testing , GLUCOSE POCT GLUCOMETERS Collected: 06/20/2024 4:52 P M Status: F Source: [facility] TYPE CODE TESTS RESULT OUT OF RANGE REFERENCE UNITS LAB GLUPOC Glucose Poc Glucometers 65 mg/dL Result Comment: Random Gluco se Reference Range is dependent on time and content of last meal. Glucose of more than 200 mg/dL in a nonstressed, ambulatory subject supports the diagnosis of Diabetes Mellitus. PERFORMED BY: [facility] [address] [facility] [place] [address] PATHOLOGIST SPECIAL OFFICER [employer] ANDRE PERALTA M.D. Performed By: #### GLULS ### # Point of Care testing , GLUCOSE POCT GLUCOMETERS Collected: 06/20/2024 12:06 PM Status: F Source: [facility] TYPE CODE TESTS RESULT OUT OF RANGE REFERENCE UNITS LAB GLUPOC Glucose Poc Glucometers 140 mg/dL Result Comment: Random Gluco se Reference Range is dependent on time and content of last meal. Glucose of more than 200 mg/dL in a nonstressed, ambulatory subject supports the diagnosis of Diabetes Mellitus. LAB COMM1 Commemt1 Glu2: Cleaned Meter Result Comment: PERFORMED BY : [place] [address] PATHOLOGIST SPECIAL OFFICER [employer] ANDRE PERALTA M.D. Performed By: #### GLULS ### # Point of Care testing , AEROBIC CULTURE Observed: 06/20/2024 10:18 AM Status: F Source: [facility] Comment deep wound culture o f abdominal wound ORGANISM: Strep agalactiae - (group [...] 0.5 Penicillin MARIANNE >2 Tetracycline S <4 Trimethoprim/Sulfamethoxazole S <0.5 Vancomycin S 2 S = [...] RESISTANT TO ALL B-LACTAM DRUGS. PERFORMED BY: [place] [address] PATHOLOGIST SPECIAL OFFICER [employer] ANDRE PERALTA M.D. Performed By: #### AERC #### [address] [address] [facility] GLUCOSE POCT GLUCOMETERS Collected: 06/20/2024 7:47 A M Status: F Source: [facility] TYPE CODE TESTS RESULT OUT OF RANGE REFERENCE UNITS LAB GLUPOC Glucose Poc Glucometers 200 mg/dL Result Comment: Random Gluco se Reference Range is dependent on time and content of last meal. Glucose of more than 200 mg/dL in a nonstressed, ambulatory subject supports the diagnosis of Diabetes Mellitus. LAB COMM1 Commemt1 Glu2: Cleaned Meter Result Comment: PERFORMED BY : [place] [id number] PATHOLOGIST SPECIAL OFFICER [employer] ANDRE PERALTA M.D. Performed By: #### GLULS ### # Point of Care testing , GLUCOSE POCT GLUCOMETERS Collected: 06/20/2024 2:14 A M Status: F Source: [facility] TYPE CODE TESTS RESULT OUT OF RANGE REFERENCE UNITS LAB GLUPOC Glucose Poc Glucometers 425 High Off Scale mg/dL Result Comment: Random Gluco se Reference Range is dependent on time and content of last meal. Glucose of more than 200 mg/dL in a nonstressed, ambulatory subject supports the diagnosis of Diabetes Mellitus. LAB COMM1 Commemt1 Result Comment: Glu2: Will R epeat Test PERFORMED BY: [address] [address] PATHOLOGIST SPECIAL OFFICER [employer] ANDRE PERALTA M.D. Performed By: #### GLULS ### # Point of Care testing , GLUCOSE POCT GLUCOMETERS Collected: 06/19/2024 8:37 P M Status: F Source: [facility] TYPE CODE TESTS RESULT OUT OF RANGE REFERENCE UNITS LAB GLUPOC Glucose Poc Glucometers 101 mg/dL Result Comment: Random Gluco se Reference Range is dependent on time and content of last meal. Glucose of more than 200 mg/dL in a nonstressed, ambulatory subject supports the diagnosis of Diabetes Mellitus. PERFORMED BY: [address] [address] PATHOLOGIST SPECIAL OFFICER [employer] ANDRE PERALTA M.D. Performed By: #### GLULS ### # Point of Care testing , BASIC METABOLIC PANEL Collected: 06/19/2024 7:28 PM Status: F Source: [facility] TYPE CODE TESTS RESULT OUT OF RANGE REFERENCE UNITS LAB GLU Glucose 90 Normal 70-100 mg/dL Result Comment: Random Gluco se Reference Range is dependent on time and content of last meal. Glucose of more than 200 mg/dL in a nonstressed, ambulatory subject supports the diagnosis of Diabetes Mellitus. ADA recommended reference range LAB BUN Blood Urea Nitrogen 22 Normal 7-25 mg/dL LAB CREATT Creatinine 0.96 Normal 0.70-1.30 mg/dL LAB GFReNR Estimated GFR >60.0 mL/Min LAB NA Sodium 137 Normal 136-145 mmol/L LAB K Potassium 4.4 Normal 3.5-5.1 mmol/L LAB CL Chloride 103 Normal 98-107 mmol/L LAB CO2 Carbon Dioxide 28.0 Normal 21.0-31.0 mmol/L LAB GAP Anion Gap 10.4 Normal 6.0-15.0 meq/L LAB CA Calcium 9.0 Normal 8.6-10.3 mg/dL Result Comment: PERFORMED BY : [place] [address] PATHOLOGIST SPECIAL [employer] ANDRE PERALTA M.D. Performed By: #### PT, PTT, SCAN CBC, BMP #### [address] PROTHROMBIN TIME INR Collected: 06/19/2024 7:28 PM S tatus: F Source: [facility] TYPE CODE TESTS RESULT OUT OF RANGE REFERENCE UNITS LAB R PT Prothrombin Time 12.9 Normal 9.0-12.9 s Result Comment: A hematocrit value greater than 55% may lead to inaccurate results in coagulation testing. Patients having hematocrit values >55% require a special collection tube for coagulation studies. Please contact the laboratory at [phone] for redraw instructions. LAB INR INR 1.1 Result Comment: INR Therapeu tic Range A) Pre- and Peroperative OAT started [...] valves: 3 - 4.5 Performed By: #### PT, PTT, SCAN CBC, BMP #### [facility] [address] [place] [address] [facility] PARTIAL THROMBOPLASTIN TIME Collected: 06/19/2024 7:2 8 PM Status: F Source: [facility] TYPE CODE TESTS RESULT OUT OF RANGE REFERENCE UNITS LAB PTT Partial Thromboplastin Time 29.4 Normal 25.1-36.5 s Result Comment: A hematocrit value greater than 55% may lead to inaccurate results in coagulation testing. Patients having hematocrit values >55% require a special collection tube for coagulation studies. Please contact the laboratory at [phone] for redraw instructions. PERFORMED BY: [facility] [address] [place] [id number] PATHOLOGIST SPECIAL OFF[employer] ANDRE PERALTA M.D. Performed By: #### PT, PTT, SCAN CBC, BMP #### [facility] [address] [place] [address] [facility] SCAN AND CBC Collected: 06/19/2024 7:28 PM Status: F Source: [facility] TYPE CODE TESTS RESULT OUT OF RANGE REFERENCE UNITS LAB WBC White Blood Count 7.9 Normal 4.1-10.5 10*3/ uL LAB UNWBC Uncorrected WBC 7.9 Normal 4.1-10.5 10*3/uL LAB RBC Red Blood Count 4.43 Normal 3.90-5.60 10*6/u L LAB HGB Hemoglobin 11.3 Low 13.0-17.0 g/dL LAB HCT Hematocrit 34.1 Low 38.8-50.0 % LAB MCV Mean Corpuscular Volume 76.9 Low 83.5-101 fL LAB MCH Mean Corpuscular Hemoglobin 25.5 Low 27.5-35.2 pg LAB MCHC Mean Corpuscular HGB Conc 33.2 Normal 32.5-35.6 g/dL LAB RDW Red Cell Distribution Width 20.5 High 12.0-14.8 % LAB PLT Platelet Count 243 Normal 150-450 10*3/uL LAB MPV Mean Platelet Volume 9.8 Normal 6.6-10.1 fL LAB NE% Neutrophils % (Auto) 45.6 . % LAB LY% Lymphocytes % (Auto) 44.3 . % LAB MO% Monocytes % (Auto) 7.0 . % LAB EO% Eosinophils % (Auto) 1.3 . % LAB BA% Basophils % (Auto) 1.8 . % LAB NRBC% NRBC% 0.1 Normal 0-0.5 /100{WBC } LAB NE# Neutrophils # (Auto) 3.6 Normal 1.8-7.7 10*3/uL LAB LY# Lymphocytes # (Auto) 3.5 Normal 1.00-4.8 10*3/uL LAB MO# Monocytes # (Auto) 0.6 Normal 0.0-0.8 10*3/ uL LAB EO# Eosinophils # (Auto) 0.1 Normal 0.0-0.45 10*3/uL LAB BA# Basophils # (Auto) 0.1 Normal 0.0-0.2 10*3/ uL Result Comment: PERFORMED BY : [place] [address] PATHOLOGIST SPECIAL OFF[employer] ANDRE PERALTA M.D. LAB HYPO Hypochromasia Moderate LAB POIK Poikilocytosis Moderate LAB ANISO Anisocytosis Moderate LAB MICR Microcytosis Slight LAB MACR Macrocytosis Slight LAB TAVIA Schistocytes Slight LAB TRGT Target Cells Slight LAB OVAL Ovalocytes Slight LAB CREN Crenated RBC Slight LAB ACAN Acanthocytes Moderate LAB PLT EST Platelet Estimate Normal Normal LAB PLTM Platelet Morphology Normal Normal Result Comment: PERFORMED BY : [place] [address] PATHOLOGIST SPECIAL [employer] ANDRE PERALTA M.D. Performed By: #### PT, PTT, SCAN CBC, BMP #### [facility] [address] [place] [address] [place] A1C WITH ESTIMATED AVERAGE GLU Collected: 06/19/2024 7:28 PM Status: F Source: [facility] Order Comment: ADD ON PER AB BY - PHLEB TYPE CODE TESTS RESULT OUT OF RANGE REFERENCE UNITS LAB .A1C Hemoglobin A1C 10.5 High 4.3-5.6 % Result Comment: Increased ri sk for diabetes: 5.7 - 6.4 diabetes: >6.4 glycemic control for adults with diabetes: <7.0 LAB eAG Estimated Average Glucose 255 mg/dL Result Comment: PERFORMED BY : [place] [id number] PATHOLOGIST SPECIAL OFF[employer] ANDRE PERALTA M.D. Performed By: #### A1C [facility] odalys Cutler #### [place] [id number] [place] GLUCOSE POCT GLUCOMETERS Collected: 06/18/2024 11:51 AM Status: F Source: [facility] TYPE CODE TESTS RESULT OUT OF RANGE REFERENCE UNITS LAB GLUPOC Glucose Poc Glucometers 386 mg/dL Result Comment: Random Gluco se Reference Range is dependent on time and content of last meal. Glucose of more than 200 mg/dL in a nonstressed, ambulatory subject supports the diagnosis of Diabetes Mellitus. PERFORMED BY: [place] [address] PATHOLOGIST SPECIAL OFF[employer] ANDRE PERALTA M.D. Performed By: #### GLULS ### # Point of Care testing , GLUCOSE POCT GLUCOMETERS Collected: 06/18/2024 11:49 AM Status: F Source: [facility] TYPE CODE TESTS RESULT OUT OF RANGE REFERENCE UNITS LAB GLUPOC Glucose Poc Glucometers 417 High Off Scale mg/dL Result Comment: Random Gluco se Reference Range is dependent on time and content of last meal. Glucose of more than 200 mg/dL in a nonstressed, ambulatory subject supports the diagnosis of Diabetes Mellitus. LAB COMM1 Commemt1 Result Comment: Glu2: Will R epeat Test LAB COMM2 Commemt2 WILL NOTIFY DR/RN Result Comment: PERFORMED BY : [place] [id number] PATHOLOGIST SPECIAL OFF[employer] ANDRE PERALTA M.D. Performed By: #### GLULS ### # Point of Care testing , GLUCOSE POCT GLUCOMETERS Collected: 06/18/2024 11:48 AM Status: F Source: [facility] TYPE CODE TESTS RESULT OUT OF RANGE REFERENCE UNITS LAB GLUPOC Glucose Poc Glucometers 483 High Off Scale mg/dL Result Comment: Random Gluco se Reference Range is dependent on time and content of last meal. Glucose of more than 200 mg/dL in a nonstressed, ambulatory subject supports the diagnosis of Diabetes Mellitus. LAB COMM1 Commemt1 Result Comment: Glu2: Will R epeat Test PERFORMED BY: [address] [address] PATHOLOGIST SPECIAL OFF[employer]ER [employer] ANDRE PERALTA M.D. Performed By: #### GLULS ### # Point of Care testing , GLUCOSE POCT GLUCOMETERS Collected: 06/18/2024 11:46 AM Status: F Source: [facility] TYPE CODE TESTS RESULT OUT OF RANGE REFERENCE UNITS LAB GLUPOC Glucose Poc Glucometers 393 mg/dL Result Comment: Random Gluco se Reference Range is dependent on time and content of last meal. Glucose of more than 200 mg/dL in a nonstressed, ambulatory subject supports the diagnosis of Diabetes Mellitus. PERFORMED BY: [address] [address] PATHOLOGIST SPECIAL OFF[employer] ANDRE PERALTA M.D. Performed By: #### GLULS ### # Point of Care testing , GLUCOSE POCT GLUCOMETERS Collected: 06/18/2024 6:22 A M Status: F Source: [facility] TYPE CODE TESTS RESULT OUT OF RANGE REFERENCE UNITS LAB GLUPOC Glucose Poc Glucometers 85 mg/dL Result Comment: Random Gluco se Reference Range is dependent on time and content of last meal. Glucose of more than 200 mg/dL in a nonstressed, ambulatory subject supports the diagnosis of Diabetes Mellitus. PERFORMED BY: [address] [address] PATHOLOGIST SPECIAL OFF[employer] ANDRE PERALTA M.D. Performed By: #### GLULS ### # Point of Care testing , COMPREHENSIVE METABOLIC PANEL Collected: 06/18/2024 6 :16 AM Status: F Source: [facility] TYPE CODE TESTS RESULT OUT OF RANGE REFERENCE UNITS LAB GLU Glucose 85 Normal 70-100 mg/dL Result Comment: Random Gluco se Reference Range is dependent on time and content of last meal. Glucose of more than 200 mg/dL in a nonstressed, ambulatory subject supports the diagnosis of Diabetes Mellitus. ADA recommended reference range LAB BUN Blood Urea Nitrogen 21 Normal 7-25 mg/d L LAB CREATT Creatinine 0.96 Normal 0.70-1.30 mg/dL LAB GFReNR Estimated GFR >60.0 mL/Min LAB NA Sodium 137 Normal 136-145 mmol/L LAB K Potassium 4.0 Normal 3.5-5.1 mmol/L LAB CL Chloride 102 Normal 98-107 mmol/L LAB CO2 Carbon Dioxide 27.6 Normal 21.0-31.0 mmol/L LAB GAP Anion Gap 11.4 Normal 6.0-15.0 meq/L LAB CA Calcium 8.7 Normal 8.6-10.3 mg/dL LAB TP Total Protein 6.4 Normal 6.4-8.9 g/dL LAB ALB Albumin Level 3.4 Low 3.5-5.7 g/dL LAB GLOB Globulin 3.0 g/dL LAB AGRATIO Albumin/Globulin Ratio 1.1 LAB BILIT Bilirubin,Total 0.4 Normal 0.3-1.0 mg/dL LAB AST Aspartate Amino Transferase 21 Normal 13-39 U/L LAB ALT Alanine Aminotransferase 14 Normal 7-52 U/L LAB ALP Alkaline Phosphatase 109 High 34-104 U/L LAB CRCLPHA Creatinine Clr C alc Pharmacy 50.22 Result Comment: PERFORMED BY : [place] [address] PATHOLOGIST SPECIAL OFF[employer] ANDRE PERALTA M.D. Performed By: #### DIFF CBC, CMP #### [address] DIFF AND CBC Collected: 06/18/2024 6:16 AM Status: F Source: [facility] TYPE CODE TESTS RESULT OUT OF RANGE REFERENCE UNITS LAB WBC White Blood Count 7.3 Normal 4.1-10.5 10*3/ uL LAB UNWBC Uncorrected WBC 7.3 Normal 4.1-10.5 10*3/uL LAB RBC Red Blood Count 4.63 Normal 3.90-5.60 10*6/u L LAB HGB Hemoglobin 11.8 Low 13.0-17.0 g/dL LAB HCT Hematocrit 35.5 Low 38.8-50.0 % LAB MCV Mean Corpuscular Volume 76.7 Low 83.5-101 fL LAB MCH Mean Corpuscular Hemoglobin 25.6 Low 27.5-35.2 pg LAB MCHC Mean Corpuscular HGB Conc 33.3 Normal 32.5-35.6 g/dL LAB RDW Red Cell Distribution Width 20.2 High 12.0-14.8 % LAB PLT Platelet Count 239 Normal 150-450 10*3/uL LAB MPV Mean Platelet Volume 10.1 Normal 6.6-10.1 fL LAB SEG Segmented Neutrophils 69 Normal 50-70 % LAB LYMPH Lymphocytes 15 Low 18-42 % LAB MON Monocytes 12 High 2-11 % LAB EOS Eosinophils 4 High 1-3 % LAB POLY Polychromasia Slight LAB HYPO Hypochromasia Slight LAB POIK Poikilocytosis Marked LAB ANISO Anisocytosis Marked LAB MICR Microcytosis Slight LAB MACR Macrocytosis Slight LAB TAVIA Schistocytes Moderate LAB TRGT Target Cells Moderate LAB CREN Crenated RBC Moderate LAB ACAN Acanthocytes Marked LAB PLT EST Platelet Estimate Normal Normal LAB LGPLT Large Platelets Slight Result Comment: PERFORMED BY : [place] [address] PATHOLOGIST SPECIAL OFF[employer] ANDRE PERALTA M.D. Performed By: #### DIFF CBC, CMP #### [facility] [address] [place] [address] [place] GLUCOSE POCT GLUCOMETERS Collected: 06/17/2024 8:54 P M Status: F Source: [facility] TYPE CODE TESTS RESULT OUT OF RANGE REFERENCE UNITS LAB GLUPOC Glucose Poc Glucometers 229 mg/dL Result Comment: Random Gluco se Reference Range is dependent on time and content of last meal. Glucose of more than 200 mg/dL in a nonstressed, ambulatory subject supports the diagnosis of Diabetes Mellitus. LAB COMM1 Commemt1 Glu2: Cleaned Meter Result Comment: PERFORMED BY : [place] [address] PATHOLOGIST SPECIAL OFF[employer] ANDRE PERALTA M.D. Performed By: #### GLULS ### # Point of Care testing , GLUCOSE POCT GLUCOMETERS Collected: 06/17/2024 4:19 P M Status: F Source: [facility] TYPE CODE TESTS RESULT OUT OF RANGE REFERENCE UNITS LAB GLUPOC Glucose Poc Glucometers 250 mg/dL Result Comment: Random Gluco se Reference Range is dependent on time and content of last meal. Glucose of more than 200 mg/dL in a nonstressed, ambulatory subject supports the diagnosis of Diabetes Mellitus. LAB COMM1 Commemt1 Glu2: Cleaned Meter Result Comment: PERFORMED BY : [address] [place] [address] PATHOLOGIST SPECIAL OFF[employer] ANDRE PERALTA M.D. Performed By: #### GLULS ### # Point of Care testing , GLUCOSE POCT GLUCOMETERS Collected: 06/17/2024 11:16 AM Status: F Source: [facility] TYPE CODE TESTS RESULT OUT OF RANGE REFERENCE UNITS LAB GLUPOC Glucose Poc Glucometers 352 mg/dL Result Comment: Random Gluco se Reference Range is dependent on time and content of last meal. Glucose of more than 200 mg/dL in a nonstressed, ambulatory subject supports the diagnosis of Diabetes Mellitus. PERFORMED BY: [address] [address] PATHOLOGIST SPECIAL OFF[employer] ANDRE PERALTA M.D. Performed By: #### GLULS ### # Point of Care testing , GLUCOSE POCT GLUCOMETERS Collected: 06/17/2024 6:29 A M Status: F Source: [facility] TYPE CODE TESTS RESULT OUT OF RANGE REFERENCE UNITS LAB GLUPOC Glucose Poc Glucometers 82 mg/dL Result Comment: Random Gluco se Reference Range is dependent on time and content of last meal. Glucose of more than 200 mg/dL in a nonstressed, ambulatory subject supports the diagnosis of Diabetes Mellitus. PERFORMED BY: [address] [address] PATHOLOGIST SPECIAL OFF[employer] ANDRE PERALTA M.D. Performed By: #### GLULS ### # Point of Care testing , COMPREHENSIVE METABOLIC PANEL Collected: 06/17/2024 5 :47 AM Status: F Source: [facility] TYPE CODE TESTS RESULT OUT OF RANGE REFERENCE UNITS LAB GLU Glucose 79 Normal 70-100 mg/dL Result Comment: Random Gluco se Reference Range is dependent on time and content of last meal. Glucose of more than 200 mg/dL in a nonstressed, ambulatory subject supports the diagnosis of Diabetes Mellitus. ADA recommended reference range LAB BUN Blood Urea Nitrogen 22 Normal 7-25 mg/d L LAB CREATT Creatinine 0.79 Normal 0.70-1.30 mg/dL LAB GFReNR Estimated GFR >60.0 mL/Min LAB NA Sodium 136 Normal 136-145 mmol/L LAB K Potassium 3.9 Normal 3.5-5.1 mmol/L LAB CL Chloride 101 Normal 98-107 mmol/L LAB CO2 Carbon Dioxide 27.8 Normal 21.0-31.0 mmol/L LAB GAP Anion Gap 11.1 Normal 6.0-15.0 meq/L LAB CA Calcium 8.4 Low 8.6-10.3 mg/dL LAB TP Total Protein 6.1 Low 6.4-8.9 g/dL LAB ALB Albumin Level 3.3 Low 3.5-5.7 g/dL LAB GLOB Globulin 2.8 g/dL LAB AGRATIO Albumin/Globulin Ratio 1.2 LAB BILIT Bilirubin,Total 0.4 Normal 0.3-1.0 mg/dL LAB AST Aspartate Amino Transferase 20 Normal 13-39 U/L LAB ALT Alanine Aminotransferase 12 Normal 7-52 U/L LAB ALP Alkaline Phosphatase 109 High 34-104 U/L LAB CRCLPHA Creatinine Clr C alc Pharmacy 62.66 Performed By: #### CMP, SCAN CBC, PHOS, MG #### [facility] [address] PHOSPHORUS Collected: 4 5:47 AM Status: F Source: [facility] TYPE CODE TESTS RESULT OUT OF RANGE REFERENCE UNITS LAB PHOS Phosphorus 3.7 Normal 2.5-4.5 mg/dL Performed By: #### CMP, SCAN CBC, PHOS, MG #### [facility] [address] MAGNESIUM Collected: 4 5:47 AM Status: F Source: [facility] TYPE CODE TESTS RESULT OUT OF RANGE REFERENCE UNITS LAB MG Magnesium 1.7 Low 1.9-2.7 mg/dL Result Comment: PERFORMED BY : [place] [address] PATHOLOGIST SPECIAL OFF[employer] ANDRE PERALTA M.D. Performed By: #### CMP, SCAN CBC, PHOS, MG #### [facility] [address] [place] [address] [facility] SCAN AND CBC Collected: 06/17/2024 5:47 AM Status: F Source: [facility] TYPE CODE TESTS RESULT OUT OF RANGE REFERENCE UNITS LAB WBC White Blood Count 8.5 Normal 4.1-10.5 10*3/ uL LAB UNWBC Uncorrected WBC 8.5 Normal 4.1-10.5 10*3/uL LAB RBC Red Blood Count 4.52 Normal 3.90-5.60 10*6/u L LAB HGB Hemoglobin 11.5 Low 13.0-17.0 g/dL LAB HCT Hematocrit 35.1 Low 38.8-50.0 % LAB MCV Mean Corpuscular Volume 77.8 Low 83.5-101 fL LAB MCH Mean Corpuscular Hemoglobin 25.5 Low 27.5-35.2 pg LAB MCHC Mean Corpuscular HGB Conc 32.8 Normal 32.5-35.6 g/dL LAB RDW Red Cell Distribution Width 20.3 High 12.0-14.8 % LAB PLT Platelet Count 213 Normal 150-450 10*3/uL LAB MPV Mean Platelet Volume 10.2 High 6.6-10.1 fL LAB NE% Neutrophils % (Auto) 63.3 . % LAB LY% Lymphocytes % (Auto) 19.4 . % LAB MO% Monocytes % (Auto) 14.4 . % LAB EO% Eosinophils % (Auto) 2.0 . % LAB BA% Basophils % (Auto) 0.9 . % LAB NRBC% NRBC% 0.0 Normal 0-0.5 /100{WBC } LAB NE# Neutrophils # (Auto) 5.4 Normal 1.8-7.7 10*3/uL LAB LY# Lymphocytes # (Auto) 1.7 Normal 1.00-4.8 10*3/uL LAB MO# Monocytes # (Auto) 1.2 High 0.0-0.8 10*3/ uL LAB EO# Eosinophils # (Auto) 0.2 Normal 0.0-0.45 10*3/uL LAB BA# Basophils # (Auto) 0.1 Normal 0.0-0.2 10*3/ uL LAB POLY Polychromasia Slight LAB HYPO Hypochromasia Moderate LAB POIK Poikilocytosis Marked LAB ANISO Anisocytosis Marked LAB MICR Microcytosis Slight LAB TAIVA Schistocytes Moderate LAB TRGT Target Cells Moderate LAB CREN Crenated RBC Slight LAB ACAN Acanthocytes Moderate LAB PLT EST Platelet Estimate Normal Normal LAB LGPLT Large Platelets Slight Result Comment: PERFORMED BY : [place] [address] PATHOLOGIST SPECIAL [employer] ANDRE PERALTA M.D. Performed By: #### CMP, SCAN CBC, PHOS, MG #### [facility] [address] [place] [address] BLOOD CULTURE Observed: 06/16/2024 8:37 PM Status: F Source: [facility] NO GROWTH 5 DAYS PERFORMED BY: [place] [address] PATHOLOGIST SPECIAL OFF[employer] ANDRE PERALTA M.D. Performed By: #### JESSICA MERRILL CTIC #### [address] BLOOD CULTURE Observed: 06/16/2024 8:32 PM Status: F Source: [facility] NO GROWTH 5 DAYS PERFORMED BY: [place] [address] PATHOLOGIST SPECIAL OFF[employer] ANDRE PERALTA M.D. Performed By: #### JESSICA MERRILL CTIC #### [address] GLUCOSE POCT GLUCOMETERS Collected: 06/16/2024 8:26 P M Status: F Source: [facility] TYPE CODE TESTS RESULT OUT OF RANGE REFERENCE UNITS LAB GLUPOC Glucose Poc Glucometers 385 mg/dL Result Comment: Random Gluco se Reference Range is dependent on time and content of last meal. Glucose of more than 200 mg/dL in a nonstressed, ambulatory subject supports the diagnosis of Diabetes Mellitus. PERFORMED BY: [place] [address] PATHOLOGIST SPECIAL OFF[employer] ANDRE PERALTA M.D. Performed By: #### GLULS ### # Point of Care testing , GLUCOSE POCT GLUCOMETERS Collected: 06/16/2024 8:24 P M Status: F Source: [facility] TYPE CODE TESTS RESULT OUT OF RANGE REFERENCE UNITS LAB GLUPOC Glucose Poc Glucometers 401 High Off Scale mg/dL Result Comment: Random Gluco se Reference Range is dependent on time and content of last meal. Glucose of more than 200 mg/dL in a nonstressed, ambulatory subject supports the diagnosis of Diabetes Mellitus. LAB COMM1 Commemt1 Result Comment: Glu2: Will R epeat Test LAB COMM2 Commemt2 WILL NOTIFY DR/RN Result Comment: PERFORMED BY : [place] [address] PATHOLOGIST SPECIAL OFF[employer] ANDRE PERALTA M.D. Performed By: #### GLULS ### # Point of Care testing , LACTIC ACID Collected: 5:11 PM Status: F Source: [facility] TYPE CODE TESTS RESULT OUT OF RANGE REFERENCE UNITS LAB LACTIC Lactic Acid 1.0 0.5-2.2 mmol/L Result Comment: PERFORMED BY : [place] [address] PATHOLOGIST SPECIAL OFF[employer] ANDRE PERALTA M.D. Performed By: #### CUBLDJESSICA CTIC #### [address] ABDOMEN W CON Observed: 06/16/2024 3:35 PM Status: COMPLETED Source: [facility] [place] [address] CT Scan Report Signed Patient: Ashwini Vickers MR#: [id number] : 1935 Acct:[id number] Age/Sex: 89 / M ADM Date: 06/16/24 Loc: ER Room: Type: [facility] ER Attending Dr: Copies to: Vargas [...] Sheldon Johnson M.D.06/16/2024 3:48 PM Dictation Location: [facility] Transcribed By: [facility] 06/16/24 1548 Dictated By: Sheldon Johnson DO 06/16/24 1535 Signed By: <Electronically signed by Sheldon Johnson DO in OV> 06/16/24 1548 BLOOD CULTURE Observed: 06/16/2024 2:15 PM Status: F Source: [facility] NO GROWTH 5 DAYS PERFORMED BY: [place] [address] PATHOLOGIST SPECIAL OFF[employer] ANDRE PERALTA M.D. Performed By: #### CUBLD ### # [address] ECG 12 LEAD ECG Observed: 06/16/2024 2:13 PM Status: COMPLETED Source: [facility] [place] [address] [place] [address] Electrocardiograph Report Signed Patient: Ashwini Vickers MR#: [id number] : 1935 Acct:[id number] Age/Sex: 89 / M ADM Date: 06/16/24 Loc: Room: [address] [place] [address] Type: ADM IN Attending Dr: Jose Alfredo [...] less evident in Anterior leads Confirmed by ÁLVARO KONG DO ([id number]) on 06/16/2024 7:24:37 PM Referred By: Electronically Signed By: ÁLVARO KONG DO Transcribed By: MUS Signed By Álvaro Kong DO 06/16 COMPREHENSIVE METABOLIC PANEL Collected: 06/16/2024 2 :00 PM Status: F Source: [facility] TYPE CODE TESTS RESULT OUT OF RANGE REFERENCE UNITS LAB GLU Glucose 118 High 70-100 mg/dL Result Comment: Random Gluco se Reference Range is dependent on time and content of last meal. Glucose of more than 200 mg/dL in a nonstressed, ambulatory subject supports the diagnosis of Diabetes Mellitus. ADA recommended reference range LAB BUN Blood Urea Nitrogen 29 High 7-25 mg/d L LAB CREATT Creatinine 1.10 Normal 0.70-1.30 mg/dL LAB GFReNR Estimated GFR >60.0 mL/Min LAB NA Sodium 134 Low 136-145 mmol/L LAB K Potassium 4.6 Normal 3.5-5.1 mmol/L LAB CL Chloride 98 Normal 98-107 mmol/L LAB CO2 Carbon Dioxide 30.4 Normal 21.0-31.0 mmol/L LAB GAP Anion Gap 10.2 Normal 6.0-15.0 meq/L LAB CA Calcium 8.8 Normal 8.6-10.3 mg/dL LAB TP Total Protein 6.5 Normal 6.4-8.9 g/dL LAB ALB Albumin Level 3.5 Normal 3.5-5.7 g/dL LAB GLOB Globulin 3.0 g/dL LAB AGRATIO Albumin/Globulin Ratio 1.2 LAB BILIT Bilirubin,Total 0.4 Normal 0.3-1.0 mg/dL LAB AST Aspartate Amino Transferase 24 Normal 13-39 U/L LAB ALT Alanine Aminotransferase 17 Normal 7-52 U/L LAB ALP Alkaline Phosphatase 116 High 34-104 U/L LAB CRCLPHA Creatinine Clr C alc Pharmacy 50.08 Result Comment: PERFORMED BY : [place] [address] PATHOLOGIST SPECIAL OFF[employer] ANDRE PERALTA M.D. Performed By: #### CMP, SCAN CBC #### [facility] [address] [place] [address] SCAN AND CBC Collected: 06/16/2024 2:00 PM Status: F Source: [facility] TYPE CODE TESTS RESULT OUT OF RANGE REFERENCE UNITS LAB WBC White Blood Count 10.1 Normal 4.1-10.5 10*3/ uL LAB UNWBC Uncorrected WBC 10.1 Normal 4.1-10.5 10*3/uL LAB RBC Red Blood Count 4.67 Normal 3.90-5.60 10*6/u L LAB HGB Hemoglobin 11.9 Low 13.0-17.0 g/dL LAB HCT Hematocrit 36.1 Low 38.8-50.0 % LAB MCV Mean Corpuscular Volume 77.4 Low 83.5-101 fL LAB MCH Mean Corpuscular Hemoglobin 25.5 Low 27.5-35.2 pg LAB MCHC Mean Corpuscular HGB Conc 33.0 Normal 32.5-35.6 g/dL LAB RDW Red Cell Distribution Width 20.2 High 12.0-14.8 % LAB PLT Platelet Count 233 Normal 150-450 10*3/uL LAB MPV Mean Platelet Volume 10.9 High 6.6-10.1 fL LAB MDW Monocyte Distribution Width 21.77 High 0.00-20.00 % Result Comment: For adults i n ED, MDW > 20.0 may be associated with a higher risk of sepsis during the first 12 hrs of hospital admission LAB NE% Neutrophils % (Auto) 64.9 . % LAB LY% Lymphocytes % (Auto) 22.7 . % LAB MO% Monocytes % (Auto) 11.5 . % LAB EO% Eosinophils % (Auto) 0.5 . % LAB BA% Basophils % (Auto) 0.4 . % LAB NRBC% NRBC% 0.1 Normal 0-0.5 /100{WBC } LAB NE# Neutrophils # (Auto) 6.5 Normal 1.8-7.7 10*3/uL LAB LY# Lymphocytes # (Auto) 2.3 Normal 1.00-4.8 10*3/uL LAB MO# Monocytes # (Auto) 1.2 High 0.0-0.8 10*3/uL LAB EO# Eosinophils # (Auto) 0.1 Normal 0.0-0.45 10*3/uL LAB BA# Basophils # (Auto) 0.0 Normal 0.0-0.2 10*3/uL Result Comment: PERFORMED BY : [facility] [address] [place] [address] PATHOLOGIST SPECIAL [employer] ANDRE PERALTA M.D. LAB POLY Polychromasia Moderate LAB HYPO Hypochromasia Moderate LAB POIK Poikilocytosis Marked LAB ANISO Anisocytosis Marked LAB MICR Microcytosis Slight LAB MACR Macrocytosis Slight LAB TAVIA Schistocytes Moderate LAB TRGT Target Cells Moderate LAB HELM Helmet Cells Slight LAB CREN Crenated RBC Slight LAB ACAN Acanthocytes Slight LAB PLT EST Platelet Estimate Normal Normal LAB PLTM Platelet Morphology Normal Normal Result Comment: PERFORMED BY : [address] [address] PATHOLOGIST SPECIAL OFFICER AUTOMAT ANDRE PERALTA M.D. Performed By: #### CMP, SCAN CBC #### [address] [address] [facility] BLOOD CULTURE Observed: 06/16/2024 2:00 PM Status: F Source: [facility] NO GROWTH 5 DAYS PERFORMED BY: [place] [id number] PATHOLOGIST SPECIAL OFFICER AUTOMAT ANDRE PERALTA M.D. Performed By: #### CUBLD ### # [facility] [address] [place], [place] [id number] [facility] SUPERFICIAL WOUND CULTURE Observed: 12/2023 1:55 PM Status: F Source: [facility] ORGANISM: Staphylococcus aur eus (O:STAAUR) Quantity of Growth Moderate Growth Aerobic DORON Charge (PCMIC38) SUSCEPTIBILITY ORGANISM: O:STAAUR ANTIBIOTIC INTERPRETATION DORON Azithromycin S <2 Ceftaroline S <0.5 Ciprofloxacin S <1 Clindamycin S <0.25 Daptomycin S 1 Levofloxacin S <1 Linezolid S 2 Oxacillin S <0.25 Penicillin MARIANNE >2 Tetracycline S <4 Trimethoprim/Sulfamethoxazole S <0.5 Vancomycin S 1 S = [...] RESISTANT TO ALL B-LACTAM DRUGS. PERFORMED BY: [place] [address] PATHOLOGIST SPECIAL OFFICER AUTOMAT ANDRE PERALTA M.D. Performed By: #### CUSUP ### # [facility] [address] [place], [place] [id number] [facility] XR CHEST 2V* Observed: 05/25/2024 8:10 AM Status: COMPLETED Source: [facility] [place] [address] [address] XRay Report Signed Patient: Ashwini Vickers MR#: [id number] 353 : 1935 Acct:[id number] Age/Sex: 89 / M ADM Date: 05/24/24 Loc: Room: [address] [place] [address] Type: ADM IN Attending Dr: Abdulaziz Root [...] Sofia Rosales M.D.05/25/2024 8:13 AM Dictation Location: [place] [address] Transcribed By: [facility] 05/25/[address] Dictated By: Sofia Rosales MD 05/25/24 0810 Signed By: <Electronically signed by MD Sofia Rosales in OV> 05/25/24 0813 GLUCOSE POCT GLUCOMETERS Collected: 05/25/2024 7:18 A M Status: F Source: [facility] TYPE CODE TESTS RESULT OUT OF RANGE REFERENCE UNITS LAB GLUPOC Glucose Poc Glucometers 87 mg/dL Result Comment: Random Gluco se Reference Range is dependent on time and content of last meal. Glucose of more than 200 mg/dL in a nonstressed, ambulatory subject supports the diagnosis of Diabetes Mellitus. PERFORMED BY: [facility] [address] [place] [address] PATHOLOGIST SPECIAL OFFICER AUTOMAT ANDRE PERALTA M.D. Performed By: #### GLULS ### # Point of Care testing , BASIC METABOLIC PANEL Collected: 05/25/2024 4:44 AM Status: F Source: [facility] TYPE CODE TESTS RESULT OUT OF RANGE REFERENCE UNITS LAB GLU Glucose 80 Normal 70-100 mg/dL Result Comment: Random Gluco se Reference Range is dependent on time and content of last meal. Glucose of more than 200 mg/dL in a nonstressed, ambulatory subject supports the diagnosis of Diabetes Mellitus. ADA recommended reference range LAB BUN Blood Urea Nitrogen 19 Normal 7-25 mg/dL LAB CREATT Creatinine 0.75 Normal 0.70-1.30 mg/dL LAB GFReNR Estimated GFR >60.0 mL/Min LAB NA Sodium 138 Normal 136-145 mmol/L LAB K Potassium 4.0 Normal 3.5-5.1 mmol/L LAB CL Chloride 103 Normal 98-107 mmol/L LAB CO2 Carbon Dioxide 27.5 Normal 21.0-31.0 mmol/L LAB GAP Anion Gap 11.5 Normal 6.0-15.0 meq/L LAB CA Calcium 8.6 Normal 8.6-10.3 mg/dL LAB CRCLPHA Creatinine Clr Calc Pharmacy 60.91 Result Comment: PERFORMED BY : [place] [address] PATHOLOGIST SPECIAL OFFICER AUTOMAT ANDRE PERALTA M.D. Performed By: #### BMP #### [address] GLUCOSE POCT GLUCOMETERS Collected: 05/24/2024 8:20 P M Status: F Source: [facility] TYPE CODE TESTS RESULT OUT OF RANGE REFERENCE UNITS LAB GLUPOC Glucose Poc Glucometers 68 mg/dL Result Comment: Random Gluco se Reference Range is dependent on time and content of last meal. Glucose of more than 200 mg/dL in a nonstressed, ambulatory subject supports the diagnosis of Diabetes Mellitus. PERFORMED BY: [place] [address] PATHOLOGIST SPECIAL OFFICER AUTOMAT ANDRE PERALTA M.D. Performed By: #### GLULS ### # Point of Care testing , GLUCOSE POCT GLUCOMETERS Collected: 05/24/2024 7:31 P M Status: F Source: [facility] TYPE CODE TESTS RESULT OUT OF RANGE REFERENCE UNITS LAB GLUPOC Glucose Poc Glucometers 87 mg/dL Result Comment: Random Gluco se Reference Range is dependent on time and content of last meal. Glucose of more than 200 mg/dL in a nonstressed, ambulatory subject supports the diagnosis of Diabetes Mellitus. PERFORMED BY: [address] [address] PATHOLOGIST SPECIAL OFFICER AUTOMAT ANDRE PERALTA M.D. Performed By: #### GLULS ### # Point of Care testing , BASIC METABOLIC PANEL Collected: 05/24/2024 4:40 PM Status: F Source: [facility] TYPE CODE TESTS RESULT OUT OF RANGE REFERENCE UNITS LAB GLU Glucose 108 High 70-100 mg/dL Result Comment: Random Gluco se Reference Range is dependent on time and content of last meal. Glucose of more than 200 mg/dL in a nonstressed, ambulatory subject supports the diagnosis of Diabetes Mellitus. ADA recommended reference range LAB BUN Blood Urea Nitrogen 22 Normal 7-25 mg/dL LAB CREATT Creatinine 0.82 Normal 0.70-1.30 mg/dL LAB GFReNR Estimated GFR >60.0 LAB NA Sodium 138 Normal 136-145 mmol/L LAB K Potassium 3.9 Normal 3.5-5.1 mmol/L LAB CL Chloride 103 Normal 98-107 mmol/L LAB CO2 Carbon Dioxide 27.0 Normal 21.0-31.0 mmol/L LAB GAP Anion Gap 11.9 Normal 6.0-15.0 meq/L LAB CA Calcium 8.8 Normal 8.6-10.3 mg/dL LAB CRCLPHA Creatinine Clr Calc Pharmacy 61.04 Result Comment: PERFORMED BY : [place] [id number] PATHOLOGIST SPECIAL OFFICER AUTOMAT ANDRE PERALTA M.D. Performed By: #### BMP #### [address] [address] [facility] COAGULATION PROFILE Collected: 05/24/2024 4:[address] atus: F Source: [facility] TYPE CODE TESTS RESULT OUT OF RANGE REFERENCE UNITS LAB R PT Prothrombin Time 12.9 Normal 9.0-12.9 s Result Comment: A hematocrit value greater than 55% may lead to inaccurate results in coagulation testing. Patients having hematocrit values >55% require a special collection tube for coagulation studies. Please contact the laboratory at [phone] for redraw instructions. LAB INR INR 1.1 Result Comment: INR Therapeu tic Range A) Pre- and Peroperative OAT started two weeks before surgery. NOT HIP SURGERY: 1.5 - 2.5 HIP SURGERY: 2 - 3 B) Primary and secondary prevention of venous THROMBOSIS: 2 - 3 C) Active venous thrombosis, pulmonary embolism and prevention of recurrent venous thrombosis: 2 - 3 D) Prevention of arterial thromboembolism including patients with mechanical heart valves: 3 - 4.5 LAB PTT Partial Thromboplastin Time 30.1 Normal 25.1-36.5 s Result Comment: A hematocrit value greater than 55% may lead to inaccurate results in coagulation testing. Patients having hematocrit values >55% require a special collection tube for coagulation studies. Please contact the laboratory at [phone] for redraw instructions. PERFORMED BY: [place] [address] PATHOLOGIST SPECIAL OFFICER AUTOMAT ANDRE PERALTA M.D. Performed By: #### PP #### [address] GLUCOSE POCT GLUCOMETERS Collected: 05/24/2024 4:36 P M Status: F Source: [facility] TYPE CODE TESTS RESULT OUT OF RANGE REFERENCE UNITS LAB GLUPOC Glucose Poc Glucometers 100 mg/dL Result Comment: Random Gluco se Reference Range is dependent on time and content of last meal. Glucose of more than 200 mg/dL in a nonstressed, ambulatory subject supports the diagnosis of Diabetes Mellitus. PERFORMED BY: [place] [address] PATHOLOGIST SPECIAL OFFICER AUTOMAT ANDRE PERALTA M.D. Performed By: #### GLULS ### # Point of Care testing , GLUCOSE POCT GLUCOMETERS Collected: 05/24/2024 4:15 P M Status: F Source: [facility] TYPE CODE TESTS RESULT OUT OF RANGE REFERENCE UNITS LAB GLUPOC Glucose Poc Glucometers 55 Low Off Scale mg/dL Result Comment: Random Gluco se Reference Range is dependent on time and content of last meal. Glucose of more than 200 mg/dL in a nonstressed, ambulatory subject supports the diagnosis of Diabetes Mellitus. LAB COMM1 Commemt1 Result Comment: Glu2: Result Not Confirmed PERFORMED BY: [place] [address] PATHOLOGIST SPECIAL OFFICER AUTOMAT ANDRE PERALTA M.D. Performed By: #### GLULS ### # Point of Care testing , BASIC METABOLIC PANEL Collected: 05/16/2024 1:15 PM Status: F Source: [facility] TYPE CODE TESTS RESULT OUT OF RANGE REFERENCE UNITS LAB GLU Glucose 649 High Off Scale 70-100 mg/dL Result Comment: Critical Res ult Called to and read back by: DREW BUITRAGO at: 05/16/2024 13:51 by:TANIA Random Glucose Reference Range is dependent on time and content of last meal. Glucose of more than 200 mg/dL in a nonstressed, ambulatory subject supports the diagnosis of Diabetes Mellitus. ADA recommended reference range LAB BUN Blood Urea Nitrogen 21 Normal 7-25 mg/dL LAB CREATT Creatinine 1.06 Normal 0.70-1.30 mg/dL LAB GFReNR Estimated GFR > 60.0 LAB NA Sodium 128 Low 136-145 mmol/L LAB K Potassium 5.4 High 3.5-5.1 mmol/L LAB CL Chloride 95 Low 98-107 mmol/L LAB CO2 Carbon Dioxide 26.6 Normal 21.0-31.0 mmol/L LAB GAP Anion Gap 11.8 Normal 6.0-15.0 LAB CA Calcium 8.7 Normal 8.6-10.3 mg/dL Result Comment: PERFORMED BY : [place] [address] PATHOLOGIST SPECIAL OFFICER AUTOMAT AIRAM MAST M.D. Performed By: #### BMP, DIFF CBC #### [address] DIFF AND CBC Collected: 05/16/2024 1:15 PM Status: F Source: [facility] TYPE CODE TESTS RESULT OUT OF RANGE REFERENCE UNITS LAB WBC White Blood Count 5.0 Normal 4.1-10.5 10*3/ uL LAB UNWBC Uncorrected WBC 5.0 Normal 4.1-10.5 10*3/uL LAB RBC Red Blood Count 4.81 Normal 3.90-5.60 LAB HGB Hemoglobin 12.3 Low 13.0-17.0 g/dL LAB HCT Hematocrit 38.1 Low 38.8-50.0 % LAB MCV Mean Corpuscular Volume 79.2 Low 83.5-101 fL LAB MCH Mean Corpuscular Hemoglobin 25.5 Low 27.5-35.2 pg LAB MCHC Mean Corpuscular HGB Conc 32.2 Low 32.5-35.6 g/dL LAB RDW Red Cell Distribution Width 21.2 High 12.0-14.8 % LAB PLT Platelet Count 249 Normal 150-450 10*3/uL LAB MPV Mean Platelet Volume 11.3 High 6.6-10.1 fL Result Comment: PERFORMED BY : [place] [address] PATHOLOGIST SPECIAL OFFICER AUTOMAT AIRAM MAST M.D. LAB SEG Segmented Neutrophils 67 Normal 50-70 % LAB LYMPH Lymphocytes 23 Normal 18-42 % LAB MON Monocytes 8 Normal 2-11 % LAB EOS Eosinophils 2 Normal 1-3 % LAB BASO Basophils 1 Normal 0-2 % LAB POLY Polychromasia Slight LAB HYPO Hypochromasia Marked LAB POIK Poikilocytosis Moderate LAB ANISO Anisocytosis Slight LAB MICR Microcytosis Slight LAB TAVIA Schistocytes Slight LAB TRGT Target Cells Slight LAB ACAN Acanthocytes Slight LAB PLT EST Platelet Estimate Normal Normal LAB PLTM Platelet Morphology Normal Normal Result Comment: PERFORMED BY : [place] [address] PATHOLOGIST SPECIAL OFFICER AUTOMAT AIRAM MAST M.D. Performed By: #### BMP, DIFF CBC #### [facility] [address] [place], [place] [address] [facility] ECG 12 LEAD ECG Observed: 05/16/2024 12:25 PM Status: COMPLETED Source: [facility] [place] [address] [place] [address] Electrocardiograph Report Signed Patient: Ashwini Vickers MR#: [id number] 353 : 1935 Acct:[id number] Age/Sex: 89 / M ADM Date: 05/16/24 Loc: PS Room: Type: [facility] CLI Attending Dr: Abdulaziz Root MD Ordering Provider: [...] Left ventricular hypertrophy with repolarization abnormality ( Mark product ) Septal infarct , age undetermined Abnormal ECG When compared with ECG of 15-Feb-2024 10:02, Significant changes have occurred Confirmed by CONRAD OGLESBY [facility] [place] (137) on 05/16/2024 2:20:20 PM Referred By: Electronically Signed By: HARSH MARTINES MD [facility] Transcribed By: MUS Signed By Harsh Martines MD, [facility] 05/16/24 1420 36 Observed: 05/04/2024 9:39 AM Status: COMPLETED Source: [facility] Dr. Chirag Merritt's recommendation for an EGD [...] disease as initially recommended. Best regards, Dr. Carbajal 36 Observed: 04/26/2024 10:25 AM Status: COMPLETED Source: [facility] Millie from Dr. Marie melendez's office (Internal Medicine) called to make sure that a message had been received to Dr. Beard regarding this patient and concerns Dr. Castro has regarding the patient having an EGD to confirm resolution of H. Pylori. This medical technical writer could not find any message in chart or in web content & social media manager, so this message was created. The following [...] A note will be sent to the network engineer administrator to discuss the possibility of using a stool study instead of a biopsy to avoid disturbing the scarred area. Please advise and respond to Dr. Castro through this telephone call note or via a letter, as to what Dr. Beard's recommendation is regarding the above inquiry. Thank you. TELEPHONE Observed: 04/26/2024 12:00 AM Status: COMPLETED Source: [facility] [id number] Ashwini Vickers [birth year] M Date Provider Department Center 04/26/2024 [id number], BETH [facility] No family history on file ALLERGIES DATE TYPE / CODE NAME / CODE REACTION SEVERITY SOURCE 10/13/2024 Drug Allergy/18324404 2(SNOMED CT) No Known Allergies/[id number] (RXNORM) Unknown [facility] Drug Class/509838781( SNOMED CT) NO KNOWN ALLERGIES [facility] ENCOUNTERS ADMIT/DISCHARGE ACCOUNT NUMBER ADMITTING ENCOUNTER CLASS LOCATION SOURCE 04/09/2025/04/09/20 25 [id number] Ambulatory [facility] HospitalBuil ding:LNEC [facility] 04/09/2025/04/09/20 25 [id number] [facility]ulatory [place] [facility]LNLB [facility] 03/02/2025/03/02/20 25 [id number] [facility] 01/16/2025/01/17/20 25 [id number] Ambulatory Building:NOM SSHCT [facility] 01/02/2025/01/03/20 25 [id number] Ambulatory Building:NOM SSWSIMG [facility] 01/02/2025/01/03/20 25 [id number] Ambulatory Building:NOM [facility] 11/30/2024/12/01/19 25 [id number] [facility] 10/26/2024/10/27/19 25 [id number] Ambulatory [facility] HospitalBuil ding:LNEC [facility] 09/25/2024/09/26/19 25 [id number] Ambulatory [facility] HospitalBuil ding:LNLB [facility] 09/25/2024/09/26/19 25 [id number] Ambulatory [facility] HospitalBuil ding:LNEC [facility] 09/04/2024/09/04/19 25 [id number] Ambulatory [place] [facility]:ELIZABETHBHT [facility] 08/30/2024/08/30/19 25 [id number] Ambulatory Building:NOM [facility] Medical [facility] 08/29/2024/08/29/19 25 [id number] Abdulaziz [facility] 07/25/2024/07/25/19 25 [id number] [facility]ulatory [facility] 07/20/2024/07/20/19 25 [id number] Ambulatory Building:NOM [facility] Medical [facility] 07/16/2024/07/17/19 25 [id number] Indra Guillory [facility] n[facility]: [id number]: 1 [facility] 07/13/2024/07/13/19 25 [id number] Ambulatory Building:NOM S [facility] 07/06/2024/07/06/20 24 [id number] Ambulatory [facility] HospitalBuil ding:LNEC [facility] 07/03/2024/07/03/20 24 [id number] Ambulatory Building:NOM S [facility] Medical [facility] 06/19/2024/06/21/20 24 [id number] PardeepamaurySushant Ambulatory [facility] nNRoom: [id number]: 1 [facility] 06/19/2024/06/19/20 24 [id number] Ambulatory Building:NOM [facility] 06/16/2024/06/18/20 24 [id number] Karon Jose Alfredo Inpatient Encounter [facility] nTRoom: [id number]: 1 [facility] 05/30/2024/05/30/20 24 [id number] Ambulatory Building:NOM [facility] 05/24/2024/05/25/20 24 [id number] Abdulaziz Root Inpatient Encounter [facility] nPRoom: [phone]: 1 [facility] 05/16/2024/05/16/20 24 [id number] Sammi Rootfijae Ambulatory [facility] ng:[facility] 04/26/2024/04/26/20 24 [id number] Sammi Rootfijae Ambulatory [facility] ng:[facility] 04/24/2024/04/24/20 24 [id number] Ambulatory Building:NOM [facility] 04/17/2024/04/17/20 24 [id number] Ambulatory Building:NOM [facility] Medical [facility] PAYERS ENCOUNTER GUARANTOR PAYER SUBSCRIBER SOURCE 04/09/2025 Primary Insurance:MEDICARE A AND BPolicy Number: [id number] Date:6904-30-40Ujzk Name:Jaydon MARADIAGA LATESHA: [id number] [place] [address] [facility] 04/09/2025 Primary Insurance:MEDICARE A AND BPolicy Number: [id number] Date:3789-39-00Xlxn Name:Jaydon MARADIAGA PHILLB: [id number] [place] [address] [facility] 03/02/2025 Ashwini [place] [id number] [place] [address]Ozj: (HP) Primary Insurance:MedicarePol icy Number: [id number] Date:2024-12-01 Ashwini Westfall JoannanaDOB: [id number] [place] [address]Mqo: (HP) [facility] 03/02/2025 Secondary Insurance:[employer] InsuranPolicy Number: [id number] Date:7229-72-32EE [address] [address]WA: Ashwini Westfall JoannanaB: [id number] [place] [address]Nxm: (HP) [facility] 03/02/2025 Tertiary Insurance:Self PayPolicy Number: Effective Date:2024-12-01 [facility] 01/16/2025 ASHWINI Westfall PHILLB: [place] [address]Nwm: (HP) Primary Insurance:MEDICAREPol icy Number: [id number] Date:2356-51-74Kfkk Name:Medicare ASHWINI Westfall PHILLB: [id number] [place] [address] [facility] EPIC 01/16/2025 Secondary Insurance:SPANISH [employer] LIFE INS CO OF [place]Policy Number: [id number] Date:2022-07-12 ASHWINI Westfall PHILLB: [id number] [place] [address] [facility] EPIC 01/02/2025 ASHWINI Khoi SNOWDENNAB: [place] [address]Utv: (HP) Primary Insurance:MEDICAREPol icy Number: [id number] Date:2443-08-06Nlhd Name:Medicare SAMUEL J SBERNADOB: [id number] [facility] TERRISHIREENDAVID [place] [phone] [facility] EPIC 01/02/2025 Secondary Insurance:SPANISH [employer] INS [facility]AMPolicy Number: [id number] Date:2022-07-12 ASHWINI FERRERERNADOB: [id number] [place] [id number] [facility] EPIC 01/02/2025 ASHWINI Westfall SBERNADOB: [place] [address]Tel: (HP) Primary Insurance:MEDICAREPol icy Number: [id number] Date:4699-76-49Gnjj Name:Medicare SAMUEL J SBERNADOB: [id number] [place] [address] [facility] EPIC 01/02/2025 Secondary Insurance:SPANISH [employer] INS [facility] BRENHAMPolicy Number: [id number] Date:2022-07-12 ASHWINI FERRERERNADOB: [id number] [facility] CLINICSHIREENDAVID V[place] [phone] [facility] EPIC 11/30/2024 Ashwini Ferrererna749 [place] [address]Ldp: (HP) Primary Insurance:MedicarePol icy Number: [id number] Date:2024-08-31 Ashwini FerrerernaDOB: [id number] [address] [facility] [place] [address]Lsp: (HP) [facility] 11/30/2024 Secondary Insurance:[employer] InsuranPolicy Number: [id number] Date:7860-07-55ZA[address] [address]BN: Ashwini Westfall NabilisaakDOB: [id number] [place] [address]Prz: (HP) [facility] 11/30/2024 Tertiary Insurance:Self PayPolicy Number: Effective Date:2024-08-31 NOT GIVENUNK [facility] 10/26/2024 Primary Insurance:MEDICARE A AND BPolicy Number: [id number] Date:7641-81-76Qzoj Name:Jaydon POLLOCKB: [id number] [address] 09/25/2024 Primary Insurance:MEDICARE A AND BPolicy Number: [id number] Date:8928-58-68Ionc Name:Jaydon POLLOCKB: [id number] [address] 09/25/2024 Primary Insurance:MEDICARE A AND BPolicy Number: [id number] Date:1590-83-46Vtwz Name:Jaydon POLLOCKB: [id number] [address] 09/04/2024 Primary Insurance:MEDICARE A AND BPolicy Number: [id number] Date:4503-93-26Uzwr Name:Jaydon POLLOCKB: [id number] [address] 08/30/2024 ASHWINI Westfall NABILMARCIENADOB: [place] [address]Scb: (HP) Primary Insurance:MEDICAREPol icy Number: [id number] Date:8083-86-47Tpsj Name:Medicare SAMUEL J NABILISAAKDOB: [id number] [place] [address] [facility] 08/30/2024 Secondary Insurance:Bkam INS [place] OF [place] Number: [id number] Date:2022-07-12 ASHWINI Westfall JOANNANADOB: [id number] [facility] [place] [address] [facility] 08/29/2024 Ashwini Westfall [id number] [place] [address]Dth: (HP) Primary Insurance:MedicarePol icy Number: [id number] Date:2024-06-02 Ashwini Westfall JoannanaDOB: [id number] [place] [address]Ylm: (HP) [facility] 08/29/2024 Secondary Insurance:[place] [employer] InsuranPolicy Number: [id number] Date:8121-58-95ZV[address] [address]WI: Ashwini Westfall PhillB: [id number] [place] [address]Wza: (HP) [facility] 08/29/2024 Tertiary Insurance:Self PayPolicy Number: Effective Date:2024-06-02 [facility] 07/25/2024 Primary Insurance:MEDICARE A AND BPolicy Number: [id number] Date:8470-85-08Ffyt Name:Jaydon POLLOCKB: [id number] [place] [address] [facility] 07/20/2024 ASHWINI Khoi POLLOCKB: [id number] [facility] [place] [address]Eyb: (HP) Primary Insurance:MEDICAREPol icy Number: [id number] Date:9781-32-79Mfjr Name:Medicare ASHWINI Khoi POLLOCKB: [id number] [place] [address] [facility] EPIC 07/20/2024 Secondary Insurance:SP[employer]ISH [employer] INS CO OF [place]Policy Number: [id number] Date:2022-07-12 ASHWINI Westfall PHILLB: [id number] [place] [address] [facility] EPIC 07/16/2024 Ashwini Westfall [id number] [place] [address]Thg: (HP) Primary Insurance:MedicarePol icy Number: [id number] Date:2024-07-16 Ashwini Westfall PhillB: [id number] [address] StUniversity Hospitals Sam[facility] [place] [address]Tng: (HP) [facility] 07/16/2024 Secondary Insurance:[employer] InsuranPolicy Number: [id number] Date:9905-84-94ZL[address] [address]HJ: Ashwini Westfall PhillB: [id number] [facility] [place] [address]Ffx: () [facility] 07/16/2024 Tertiary Insurance:Self PayPolicy Number: Effective Date:2024-07-16 [facility] ASHWINI Westfall PHILLB: [place] [address]Ess: (HP) Primary Insurance:MEDICAREPol icy Number: [id number] Date:4671-53-74Cxll Name:Medicare ASHWINI Westfall PHILLB: [id number] [place] [address] [facility] EPIC 07/13/2024 Secondary Insurance:[employer] [place]: [id number] Date:2022-07-12 ASHWINI Westfall PHILLB: [id number] [place] [address] [facility] EPIC 07/06/2024 Primary Insurance:MEDICARE A AND BPolicy Number: [id number] Date:8908-48-54Xfjv Name:Jaydon POLLOCKB: [id number] [place] [address] [facility] 07/03/2024 ASHWINI Westfall RANCHODOB: [place] [address]Odv: (HP) Primary Insurance:MEDICAREPol icy Number: [id number] Date:8387-83-85Sikq Name:Medicare SAMUEL J RANCHODOB: [id number] [place] [address] [facility] EPIC 07/03/2024 Secondary Insurance:SP[place] [employer] INS [facility] [place] Number: [id number] Date:2022-07-12 ASHWINI Westfall PHILLB: [id number] [place] [address] [facility] EPIC 06/19/2024 Ashwini Westfall [id number] [place] [address]Dbo: (HP) Primary Insurance:MedicarePol icy Number: [id number] Date:2024-06-19 Ashwini Westfall JoannanaDOB: [id number] [place] [address]Yuv: (HP) [facility] 06/19/2024 Secondary Insurance:[employer] InsuranPolicy Number: [id number] Date:4286-40-58FX Arabella [address] [place] [address]YT: Ashwini Westfall JoannanaDOB: [id number] [place] [address]Knt: (HP) [facility] 06/19/2024 Tertiary Insurance:Self PayPolicy Number: Effective Date:2024-06-19 NOT GIVENUNK [facility] 06/19/2024 ASHWINI Westfall JOANNANADOB: [place] [address]Mhu: (HP) Primary Insurance:MEDICAREPol icy Number: [id number] Date:2190-18-63Cahi Name:Medicare ASHWINI Westfall NABILERNADOB: [id number] [place] [address] [facility] EPIC 06/19/2024 Secondary Insurance:[place] [employer] LIFE INS [place] OF [place]Policy Number: [id number] Date:2022-07-12 ASHWINI Westfall PHILLB: [id number] [place] [address] [facility] EPIC 06/16/2024 Ashwini Westfall [id number] [place] [address]Lqp: (HP) Primary Insurance:MedicarePol icy Number: [id number] Date:2024-06-16 Ashwini Westfall JoannanaDOB: 0750-60-93WBW796 [place] [address]Wws: (HP) [facility] 06/16/2024 Secondary Insurance:[employer] [employer] InsuranPolicy Number: [id number] Date:8642-64-30MJ[address] [address]UX: Ashwini Westfall JoannanaDOB: 6193-84-54YDM785 [place] [address]Ojk: (HP) [facility] 06/16/2024 Tertiary Insurance:Self PayPolicy Number: Effective Date:2024-06-16 NOT GIVENUNK [facility] 05/30/2024 ASHWINI Westfall NABILERNADOB: [id number] [place] [address]Nfh: (HP) Primary Insurance:MEDICAREPol icy Number: [id number] Date:1825-09-04Qodb Name:Medicare SAMUEL J NABILERNADOB: [id number] [place] [address] [facility] EPIC 05/30/2024 Secondary Insurance:[employer] [employer] INS [facility] [place]Policy Number: [id number] Date:2022-07-12 ASHWINI Westfall JOANNANADOB: [id number] [place] [address] [facility] EPIC 05/24/2024 Ashwini Westfall [id number] [place] [address]Ikt: (HP) Primary Insurance:MedicarePol icy Number: [id number] Date:2024-05-15 Ashwini Westfall JoannanaDOB: [id number] [place] [address]Pam: () [facility] 05/24/2024 Secondary Insurance:[employer] InsuranPolicy Number: [id number] Date:1988-90-87[address] [address]IV: Ashwini Westfall NabilernaDOB: 2701-53-50BQI503 [place] [address]Bim: (HP) [facility] 05/24/2024 Tertiary Insurance:Self PayPolicy Number: Effective Date:2024-05-15 [facility]/16/2024 Ashwini Westfall [id number] [place] [address]Iye: (HP) Primary Insurance:MedicarePol icy Number: [id number] Date:2024-05-15 Ashwini Westfall NabilernaDOB: [id number] [place] [address]Pjo: () [facility] 05/16/2024 Secondary Insurance:[place] [employer] InsuranPolicy Number: [id number] Date:8935-45-80GS [address] [place] [address]QI: Ashwini Westfall NabilernaDOB: 2750-08-82YYY180 [place] [address]Oco: () [facility] 05/16/2024 Tertiary Insurance:Self PayPolicy Number: Effective Date:2024-05-15 [facility] 04/26/2024 Ashwini Westfall [id number] [place] [address]Tel: () Primary Insurance:MedicarePol icy Number: [id number] Date:2024-03-27 Ashwini Westfall PhillB: [id number] [place] [address]Tel: () [facility] 04/26/2024 Secondary Insurance:[place] [employer] InsuranPolicy Number: [id number] Date:4040-91-24FA [address] [place] [address]YN: Ashwini Westfall PhillB: [id number] [place] [address]Zda: () [facility] 04/26/2024 Tertiary Insurance:Self PayPolicy Number: Effective Date:2024-03-27 [facility] 04/24/2024 ASHWINI Khoi POLLOCKB: [place] [address]Hxg: (HP) Primary Insurance:MEDICAREPol icy Number: [id number] Date:8762-65-33Bneu Name:Medicare SAMUEL J PHILLB: [id number] [place] [address] [facility] EPIC 04/24/2024 Secondary Insurance:[facility] [employer] INS [facility] [place]: [id number] Date:2022-07-12 ASHWINI Westfall PHILLB: [id number] [place] [address] [facility] EPIC 04/17/2024 ASHWINI Westfall PHILLB: [place] [address]Vgn: (HP) Primary Insurance:MEDICAREPol icy Number: [id number] Date:0120-03-12Zhor Name:Medicare SAMUEL J PHILLB: [id number] [place] [address] [facility] EPIC 04/17/2024 Secondary Insurance:[employer] [employer] INS [facility] [place]Policy Number: [id number] Date:2022-07-12 ASHWINI Westfall PHILLB: [id number] [place] [address] [facility] EPIC
--- OUTSIDE RECORDS SUMMARY | 2025-04-09 13:08 | XMS_ITS ---
Author Name Auto Generated Organization OHIP Support Name Relationship Address Phone Luis Angel Vickers Next of Kin [address] [place] [address], [place] [address] + [place] [address] [phone] LUIS ANGEL VICKERS Next of Kin Unknown + LUIS ANGEL VICKERS Next of Kin Unknown + LUIS ANGEL VICKERS Next of Kin Unknown + Luis Angel Vickers Next of Kin [address] [place] [address], [place] [address] + [place] [address] [phone] LUIS ANGEL VICKERS Next of Kin Unknown + Luis Angel Vickers Next of Kin [address] [place] [address] + Rancho, [place] [address] [phone] LUIS ANGEL VICKERS Next of Kin Unknown + Luis Angel Vickers Next of Kin [address] [place] [address], [place] [address] + [place] [address] [phone] LUIS ANGEL VICKERS Next of Kin Unknown + LUIS ANGEL VICKERS Next of Kin Unknown + Luis Angel Vickers Next of Kin [address] [place] [address] + [place] [address] [phone] SBERNA, LUIS ANGEL Next of Kin Unknown + Sberna, Luis Angel Monsivais Next of Kin [address] [place] [address] + SberSaú[place] [address] [phone] SBERLUIS ANGEL FITZGERALD Next of Kin Unknown + Sberna, Luis Angel Monsivais Next of Kin [address] [place] [address] + Sberna, [place] [address] [phone] Sberna, Luis Angel Monsivais Next of Kin [address] [place] [address] + Sberamilcar, [place] [address] [phone] Sberamilcar, Luis Angel Monsivais Next of Kevin [address] [place] [phone] + Sberna, [place] [address] [phone] SBERAMILCAR, LUI SANGEL Next of Kin Unknown + SBERAMILCAR, LUIS ANGEL Next of Kin Unknown + Care Team Providers Care Antique Furniture Restorer Name Role Phone MARIE CASTRO Attending Unavailable MARIE CASTRO Attending Unavailable MARIE CASTRO Referring Unavailable VASMARIE EL Attending Unavailable VASMARIE EL Referring Unavailable VASCHAMARIE Skinner Attending Unavailable VASMARIE EL Attending Unavailable VASCHAMARIE Skinner Referring Unavailable VASCHAMARIE Skinner Attending Unavailable ALFA GARCIA Attending Unavailable STEPHANIE SHERIDAN Attending Unavailable MARIE CASTRO Referring Unavailable YOMI CHONG Attending Unavailable MARIE CASTRO Referring Unavailable JESSI ZAVALA Attending Unavailable MARIE CASTRO Primary Care Unavailab JESSI Dudley Attending Unavailable STALIN ALAMO Referring Unavailable VASCHAMARIE Skinner Primary Care Unavailab le VASCHAMARIE Skinner Primary Care Unavailab le VASCHAMARIE Skinner Primary Care Unavailab JESSI Dudley Attending Unavailable MARIE CASTRO Primary Care Unavailab JESSI Dudley Referring Unavailable VASCHAKMARIE [facility] Care Unavailab JESSI Dudley Attending Unavailable VASCHAK, [facility] Care Unavailab JESSI Dudley Referring Unavailable [facility] Care Unavailab le [facility] Marie Primary Care Unavailable Almahameed, Soufian Admitting Unavailable Almahameed, Soufian Attending Unavailable Karon, Jose Alfredo Admitting Unavailable Karon, Jose Alfredo Attending Unavailable Gray Higgins Consulting Unavailable [facility] Marie Primary Care Unavailable Vaschak, Marie Primary Care Unavailable Almahameed, Soufian Admitting Unavailable Almahameed, Soufian Attending Unavailable Indra Guillory Admitting Unavailab Chela Estevez Consulting Unavailable Lisa Hidalgo Attending Unavailable Xavichabrody, Marie Primary Care Unavailable Yves Han Consulting Unavailable Chuck Velasco Consulting Anat Kingston Consulting Unavailable Sushant Cordon Admitting UnavailSushant Seo Attending UnavailStephanie Orosco Consulting Unavailable Vaschak, Marie Primary Care Unavailable Alfa Russo Consulting Unavailable Thierno Corrales Consulting Unavailable [facility], Marie Primary Care Unavailable Almahameed, Soufian Admitting Unavailable Almahameed, Soufian Attending Unavailable Vaschabrody, Marie Primary Care Unavailable Anat Perez Attending Unavailable Jenifer Pereza Admitting Unavailable Ana, Anat Admitting Unavailable Ana, Anat Attending Unavailable Marie Castro Primary Care Unavailable Jenifer Pereza Referring Unavailable Almahameed, Soufian Attending Unavailable Almahameed, Soufian Admitting Unavailable [facility], Marie Primary Care Unavailable PROBLEMS DATE TYPE CONDITION / CODE ATTENDING STATUS [facility] 04/09/2025 Active 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, with long-term current use of insulin (HCC) / E10.59(ICD-10) JESSI ZAVALA Active [facility] 04/09/2025 Active Hypoglycemia steffanie wareness associated with type 1 diabetes mellitus (HCC) / E10.649(ICD-10) JESSI ZAVALA Active [facility] 04/09/2025 Active Insulin pump sta tus / Z96.41(ICD-10) JESSI ZAVALA [facility] 03/02/2025 Unknown Encounter for ad justment and management of automatic implantable cardiac defibrillator / Z45.02(ICD-10) Anat Perez [facility] 10/26/2024 Active High Blood Sugar / UNK(Unknown) JESSI ZAVALA [facility] 07/16/2024 Unknown Heart failure, unspecified / I50.9(ICD-10) [place] 07/16/2024 Unknown Pleurodynia / R07.81(ICD-10) [facility] 07/16/2024 Unknown Type 1 diabetes mellitus without complications / E10.9(ICD-10) [facility] 07/16/2024 Unknown 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(ICD-10) [facility] 07/16/2024 Unknown 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 / J44.1(ICD-10) [facility] 06/16/2024 Unknown Cutaneous absces s of abdominal wall / L02.211(ICD-10) [facility] 06/16/2024 Unknown Bradycardia, uns pecified / R00.1(ICD-10) [facility] Iron deficiency / [facility]61.1(ICD-10[facility] Ischemic cardiom yopathy / I25.5(ICD-10) [facility] Non-ST elevation (NSTEMI) myocardial infarction / I21.4(ICD-10) [facility] 05/24/2024 Unknown 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 Author Type: Nurse Practitioner Type: Progress Notes Filed: 04/09/2025 14:53 Note Text: Endocrinology Follow Up History of Present Illness Ashwini Vickers is a 89 year old male presents today for follow up of DM Type 1. Here with . At [facility] 10/2024, basal rate was reduced overnight. He [...] significant fatigue. 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 recalls he is not bolusing consistently and will ignore his Omnipod alarms at times. Patient recalls being consistent with his Novolog and Lantus injections when he was on these. 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 Per patient, this was done due to [...] OTHER Medication Dosage Pharm Subclass Blood-Glucose Sensor (Instacart G7 SENSOR) delfin Change every 10 days. [...] needed. Agents to treat Hypoglycemia (Hyperglycemics) Insulin Hazel, Disposable, (BD ULTRA-FINE ROSALVA PEN NEEDLE) 32 gauge x 5/32 Use with insulin once daily in case of pump failure Medical Supplies and DME - Insulin Hazel-Syringes and Admin Supplies insulin pump cart,auto,BT,G6/7 (OMNIPOD 5 G6-G7 PODS, GEN 5,) crtg Change every 72 hours. Medical Supply, FDB Superset Lactobac no.41/Bifidobact no.7 (PROBIOTIC-10 ORAL) Take by mouth once daily. Intestinal Chayo Modifiers feyqbk-mnrqexph-jmxcwla (CREON) 24,000-76,000 -120,000 unit cpDR Take 2 capsules by mouth three times daily with meals. and 1 with snacks (8/day) Digestive Enzyme Mixtures lutein-zeaxanthin 25-5 mg cap Take by mouth once daily. Alternative Therapy - Antioxidant Omeprazole Magnesium 20 mg tablet Take 20 mg by mouth. Gastric Acid Secretion Compounding And Finishing Supervisor - Proton Pump Inhibitors (PPIs) PARoxetine (PAXIL) 40 mg tablet Take 40 mg by mouth every morning. Antidepressant - Selective Serotonin Reuptake Inhibitors (SSRIs) tamsulosin (FLOMAX) 0.4 mg Take 0.4 mg by mouth. Prostatic Hypertrophy Agent - llstz-4-Otbkqwifsiot Antagonists Physical Activity: No formal program Diet: [...] Observed: 04/09/2025 2:00 PM Status: COMPLETED Source: [facility] Office Visit (ENDOLN) ASHWINI VICKERS ([id number]) 1935 M Date Time Provider Department 04/09/25 [...] DM Type 1. Here with . At [facility] 10/2024, basal rate was reduced overnight. He [...] significant fatigue. 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 recalls he is not bolusing consistently and will ignore his Omnipod alarms at times. Patient recalls being consistent with his Novolog and Lantus injections when he was on these. 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 Per patient, this was done due to [...] needed. Agents to treat Hypoglycemia (Hyperglycemics) Insulin Hazel, Disposable, (BD ULTRA-FINE ROSALVA PEN NEEDLE) 32 gauge x /32 Use with insulin once daily in case of pump failure Medical Supplies and DME - Insulin Hazel-Syringes and Admin Supplies insulin pump cart,auto,BT,G6/7 (OMNIPOD 5 G6-G7 PODS, GEN 5,) crtg Change every 72 hours. Medical Supply, FDB Superset Lactobac no.41/Bifidobact no.7 (PROBIOTIC-10 ORAL) Take by mouth once daily. Intestinal Chayo Modifiers gukiai-jfkkushn-auegama (CREON) 24,000-76,000 -120,000 unit cpDR Take 2 capsules by mouth three times daily with meals. and 1 with snacks (8/day) Digestive Enzyme Mixtures lutein-zeaxanthin 25-5 mg cap Take by mouth once daily. Alternative Therapy - Antioxidant Omeprazole Magnesium 20 mg tablet Take 20 mg by mouth. Gastric Acid Secretion Compounding And Finishing Supervisor - Proton Pump Inhibitors (PPIs) PARoxetine (PAXIL) 40 mg tablet Take 40 mg by mouth every morning. Antidepressant - Selective Serotonin Reuptake Inhibitors (SSRIs) tamsulosin (FLOMAX) 0.4 mg Take 0.4 mg by mouth. Prostatic Hypertrophy Agent - grpzk-5-Ylkdcfnkeshy Antagonists Physical Activity: No formal program Diet: [...] Date Reviewed: 04/09/2025 Reviewed by: Jessi Zavala APRN.PARI MUTUAL TICKET CHECKER - Fully Assessed Reason for Visit: Diabetes [...] 30 units daily)Disp: 30 mLRfl: 3 Insulin Hazel, Disposable, (BD ULTRA-FINE ROSALVA PEN NEEDLE) 32 gauge x 5/32 Use four times daily with insulin pensDisp: 400 eachRfl: 3 CONSULT TO DIABETES EDUCATION DSME [[id number]] Order #: [id number]: 2 FUTURE Prescriptions as of 04/09/2025 - insulin glargine (LANTUS SOLOSTAR U-100 INSULIN) 100 unit/mL (3 mL) Inject 12 Units subcutaneously daily at bedtime. - insulin aspart U-100 (NOVOLOG FLEXPEN U-100 INSULIN) 100 unit/mL (3 mL) pen Inject 4 units with meals plus sliding scale (Max daily dose of 30 units daily) - Insulin Hazel, Disposable, (BD ULTRA-FINE ROSALVA PEN NEEDLE) 32 [...] Inject 1 mg subcutaneously as needed. - rqlogb-ocfdxfma-pzjhwxw (CREON) 24,000-76,000 -120,000 unit cpDR Take 2 [...] in case of pump failure - Insulin Hazel, Disposable, (BD ULTRA-FINE ROSALVA PEN NEEDLE) 32 gauge x 5/32 (Discontinued) Use with insulin once daily in case of pump failure Disposition: Return in about 4 weeks (around 05/07/2025). Follow-up and Disposition History for Encounter Date Provider Department Center 04/09/2025 [id number] ZAVALA [facility] Encounter Status:Closed by JESSI ZAVALA on 04/09/25 GLUCOSE P FAST SERPL-MCNC Collected: 9:56 AM Status: F Source: [facility] Order Comment: Specimen Type : BLOOD SPECIMEN Ordering Facility: [facility] Address: [address] [place] [address] TYPE CODE TESTS RESULT OUT OF RANGE REFERENCE UNITS LAB 1558-6([facility]) Glucose p fast SerPl-mCnc 751 High 74-99 mg/dL Result Comment: [place] Liz betes [employer] guidelines state that a diabetes mellitus diagnosis is preliminarily made when the fasting plasma glucose meets or exceeds 126 mg/dL. In the absence of unequivocal hyperglycemia, results should be confirmed with repeat testing. Patients are at increased risk for diabetes mellitus (prediabetes) when the fasting glucose is 100 to 125 mg/dL. Performed By: #### 1558-6 ## ## [facility] CLIA [id number] [address] [place] [address] [place] CNPN Observed: 02/05/2025 12:00 AM Status: COMPLETED Source: [facility] Telephone (ENDOLN) ASHWINI VICKERS ([id number]) 1935 M Date Time Provider Department 02/05/25 [...] Buffy Roche MA 02/15/2025 10:09 AM Signed [facility] [employer] Part B Insulin RX form completed and faxed Confirmation received Allergies As of Date: 02/05/2025 (No Known Allergies) Date Reviewed: 10/26/2024 Reviewed by: Jessi Zavala APRN.CNP - Fully Assessed Reason for Visit: [employer] form [Other] Primary Visit Diagnosis: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 - gcjlem-rzhesmvn-uxhinrz (CREON) 24,000-76,000 -120,000 unit cpDR Take 2 [...] Observed: 01/16/2025 11:15 AM Status: F Source: [facility] CLINICAL HISTORY: Chest pain . Technique: Spiral [...] Observed: 01/02/2025 12:20 PM Status: F Source: [facility] TITLE OF EXAM: XR CHEST 2 EWS [...] Observed: 12/19/2024 12:00 AM Status: COMPLETED Source: [facility] Telephone (ENDOLN) ASHWINI VICKERS ([id number]) 1935 M Date Time Provider Department 12/19/24 JESSI ZAVALA During your visit today, we recorded the following information about you: Sharonda Felipe 12/19/2024 12:07 PM Signed Pt needs refill on sensors. Do not see on current med list. Pt uses [facility] pharmacy in [facility]. Insurance is not going to pay for this until 01/03. Spouse is requesting to speak to a nurse about getting an alternative until then. Please review and advise. Patient has been identified by name and birthdate. Duration of symptoms: N/A Person calling: self Call patient at: on cell [phone] (cell) Was an appointment scheduled: No Closing statement: Results or non-symptom based questions: Thank you for calling [facility], your call will be returned within the next business day. Jessi Hess APRN.KALANI 12/25/2024 8:04 AM Addendum Rx sent however patient obtains typically from [facility], are they still having issues obtaining from there? Sandra Peguero LPN 12/27/2024 11:08 AM Signed Spoke to pharmacy, the sensors are ready for picker. Relayed message to patient's . She states that they do usually receive sensors from [facility] but they are having issues receiving them. The patient uses more that prescribed and paid for by insurance because they fall out. She will picker those at pharmacy , if there are any further issues she will contact our office. Allergies As of Date: 12/19/2024 (No Known Allergies) Date Reviewed: 10/26/2024 Reviewed by: Jessi Zavala APRN.PARI MUTUAL TICKET CHECKER - Fully Assessed Reason for Visit: Refill [...] PUMP (MAX DAILY 75 UNITS) - Insulin Hazel, Disposable, (BD ULTRA-FINE ROSALVA PEN NEEDLE) 32 [...] Inject 1 mg subcutaneously as needed. - npgjvv-fqcnouml-iariize (CREON) 24,000-76,000 -120,000 unit cpDR Take 2 [...] Observed: 10/26/2024 12:15 PM Status: COMPLETED Source: [facility] Office Visit (ENDOLN) ASHWINI VICKERS ([id number]) 1935 M Date Time Provider Department 10/26/24 [...] DM Type 1. Here with . 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 Per patient, this was done due to [...] needed. Agents to treat Hypoglycemia (Hyperglycemics) Insulin Hazel, Disposable, (BD ULTRA-FINE ROSALVA PEN NEEDLE) 32 gauge x Use with insulin once daily in case of pump failure Medical Supplies and DME - Insulin Hazel-Syringes and Admin Supplies insulin pump cart,auto,BT,G6/7 (OMNIPOD 5 G6-G7 PODS, GEN 5,) crtg Change every 72 hours. Medical Supply, FDB Superset Lactobac no.41/Bifidobact no.7 (PROBIOTIC-10 ORAL) Take by mouth once daily. Intestinal Chayo Modifiers hkxfgs-bzaftmmf-wcvpttp (CREON) 24,000-76,000 -120,000 unit cpDR Take 2 capsules by mouth three times daily with meals. and 1 with snacks (8/day) Digestive Enzyme Mixtures lutein-zeaxanthin 25-5 mg cap Take by mouth once daily. Alternative Therapy - Antioxidant Omeprazole Magnesium 20 mg tablet Take 20 mg by mouth. Gastric Acid Secretion Compounding And Finishing Supervisor - Proton Pump Inhibitors (PPIs) PARoxetine (PAXIL) 40 mg tablet Take 40 mg by mouth every morning. Antidepressant - Selective Serotonin Reuptake Inhibitors (SSRIs) tamsulosin (FLOMAX) 0.4 mg Take 0.4 mg by mouth. Prostatic Hypertrophy Agent - wqiel-4-Owwwgyudmifn Antagonists Physical Activity: No formal program Diet: [...] Advised to discuss further with PCP / thimble press operator, but from our standpoint he would be [...] Recommend discontinuing Farxiga- discussed with PCP / thimble press operator BACKUP INSULIN PLAN: Only use this if [...] euglycemic diabetic ketoacidosis- discussed with PCP / thimble press operator BACKUP INSULIN PLAN: Only use this if [...] Insulin pump titration [Z46.81] Order(s):HEMOGLOBIN A1C (POC) [[id number]] Order #: [id number]. #:[id number] Prescriptions as of 10/26/2024 - insulin glargine (LANTUS SOLOSTAR U-100 INSULIN) 100 unit/mL (3 mL) Inject 12 Units subcutaneously daily at bedtime. For use in case of pump failure - insulin aspart U-100 (NOVOLOG U-100 INSULIN ASPART) 100 unit/mL ADMINISTER PER PUMP (MAX DAILY 75 UNITS) - insulin pump cart,auto,BT,G6/7 (OMNIPOD 5 G6-G7 PODS, GEN 5,) crtg Change every 72 hours. - Insulin Hazel, Disposable, (BD ULTRA-FINE ROSALVA PEN NEEDLE) 32 [...] Inject 1 mg subcutaneously as needed. - hlmgva-ppvheimd-xabvjbk (CREON) 24,000-76,000 -120,000 unit cpDR Take 2 [...] euglycemic diabetic ketoacidosis- discussed with PCP / thimble press operator BACKUP INSULIN PLAN: Only use this if [...] for Encounter Date Provider Department Center 10/26/2024 [id number] ZAVALA [facility] Encounter Status:Closed by JESSI ZAVALA on 10/26/24 PROGRESS Observed: 10/26/2024 12:05 PM Status: COMPLETED Source: [facility] ID: [id number] Author: JESSI ZAVALA APRN.PARI MUTUAL TICKET CHECKER Service: ? Author Type: Nurse Practitioner Type: Progress Notes Filed: 10/26/2024 13:11 Note Text: Endocrinology Follow Up History of Present Illness Ashwini Vickers is a 89 year old male presents today for follow up of DM Type 1. Here with . 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 Per patient, this was done due to [...] needed. Agents to treat Hypoglycemia (Hyperglycemics) Insulin Hazel, Disposable, (BD ULTRA-FINE ROSALVA PEN NEEDLE) 32 gauge x Use with insulin once daily in case of pump failure Medical Supplies and DME - Insulin Hazel-Syringes and Admin Supplies insulin pump cart,auto,BT,G6/7 (OMNIPOD 5 G6-G7 PODS, GEN 5,) crtg Change every 72 hours. Medical Supply, FDB Superset Lactobac no.41/Bifidobact no.7 (PROBIOTIC-10 ORAL) Take by mouth once daily. Intestinal Chayo Modifiers wfheun-eelsbwyh-kspeely (CREON) 24,000-76,000 -120,000 unit cpDR Take 2 capsules by mouth three times daily with meals. and 1 with snacks (8/day) Digestive Enzyme Mixtures lutein-zeaxanthin 25-5 mg cap Take by mouth once daily. Alternative Therapy - Antioxidant Omeprazole Magnesium 20 mg tablet Take 20 mg by mouth. Gastric Acid Secretion Compounding And Finishing Supervisor - Proton Pump Inhibitors (PPIs) PARoxetine (PAXIL) 40 mg tablet Take 40 mg by mouth every morning. Antidepressant - Selective Serotonin Reuptake Inhibitors (SSRIs) tamsulosin (FLOMAX) 0.4 mg Take 0.4 mg by mouth. Prostatic Hypertrophy Agent - wtrhp-3-Owgznjeylulq Antagonists Physical Activity: No formal program Diet: CHO Controlled Diet SMBG Frequency of Monitoring: Four times a Day Summary of Personal CGM Findings: Dates worn: 10/12/2024-10/25/2024 CGM Type: Vimbly 1- CGM recording is adequate for interpretation. [...] Advised to discuss further with PCP / thimble press operator, but from our standpoint he would be [...] Recommend discontinuing Farxiga- discussed with PCP / thimble press operator BACKUP INSULIN PLAN: Only use this if [...] Observed: 10/13/2024 12:00 AM Status: COMPLETED Source: [facility] Telephone (ZEALERT) ASHWINI VICKERS ([id number]) 1935 M Date Time Provider Department 10/13/24 [...] Date Reviewed: 09/25/2024 Reviewed by: Jessi Zavala APRN.PARI MUTUAL TICKET CHECKER - Fully Assessed Reason for Visit: Omnipod/Dexcom [...] crtg Change every 72 hours. - Insulin Hazel, Disposable, (BD ULTRA-FINE ROSALVA PEN NEEDLE) 32 [...] Inject 1 mg subcutaneously as needed. - vzulxj-sjjfjrxy-mapfvne (CREON) 24,000-76,000 -120,000 unit cpDR Take 2 [...] Observed: 10/11/2024 12:00 AM Status: COMPLETED Source: [facility] ASHWINI VICKERS ([id number]) 1935 M Date Time Provider Department 10/11/24 GAYE MATA During your visit today, we recorded the following information about you: Gaye Mata, RN 10/11/2024 4:23 PM Signed Patient's sent message patient had received Dexcom G7 CGM sensors from [employer] last night. Patient applied Omnipod 6 insulin [...] Date Reviewed: 09/25/2024 Reviewed by: Jessi Zavala APRN.PARI MUTUAL TICKET CHECKER - Fully Assessed Reason for Visit: Omnipod [...] crtg Change every 72 hours. - Insulin Hazel, Disposable, (BD ULTRA-FINE ROSALVA PEN NEEDLE) 32 [...] Inject 1 mg subcutaneously as needed. - vkndkn-chshmjgf-mqcosxb (CREON) 24,000-76,000 -120,000 unit cpDR Take 2 [...] Observed: 10/11/2024 12:00 AM Status: COMPLETED Source: [facility] Telephone (ENDOLN) ASHWINI VICKERS ([id number]) 1935 M Date Time Provider Department 10/11/24 [...] notes attached Questions Completed Waiting for determination [facility] Prior Internet Media Planner Endocrinology and Metabolism [place] Ruchi Rhoades 10/11/2024 11:37 AM Signed Allergies [...] crtg Change every 72 hours. - Insulin Hazel, Disposable, (BD ULTRA-FINE ROSALVA PEN NEEDLE) 32 [...] Inject 1 mg subcutaneously as needed. - gszewx-srzwefst-hnystwu (CREON) 24,000-76,000 -120,000 unit cpDR Take 2 [...] Observed: 10/10/2024 12:00 AM Status: COMPLETED Source: [facility] Telephone ([facility]) ASHWINI VICKERS ([id number]) 1935 M Date Time Provider Department 10/10/24 GAYE MATA During your visit today, we recorded the following information about you: Gaye Mata, RN 10/10/2024 9:36 AM Signed Called and spoke with patient's . Patient called educator last week stating he has been having issues getting his Dexcom G7 CGM sensors from his DME company, [employer]. Patient states he called them a few [...] LPN 10/10/2024 3:40 PM Signed Spoke to [employer] Rep, he reported that the Dexcom supplies should be delivered today vis [employer]. Tracking nbr [id number]. According to his notes it was out for delivery at 5:48 am 10/10/2024. I attempted to reach patient at both nbrs listed, no answer. VM left with update. I will send a Novogy message as well. Allergies As of Date: 10/10/2024 (No Known Allergies) Date Reviewed: 09/25/2024 Reviewed by: Jessi Zavala APRN.PARI MUTUAL TICKET CHECKER - Fully Assessed Reason for Visit: Dexcom [...] crtg Change every 72 hours. - Insulin Hazel, Disposable, (BD ULTRA-FINE ROSALVA PEN NEEDLE) 32 [...] Inject 1 mg subcutaneously as needed. - xkwtya-yrytitra-uzbloib (CREON) 24,000-76,000 -120,000 unit cpDR Take 2 [...] Observed: 10/04/2024 12:00 AM Status: COMPLETED Source: [facility] Telephone (DEMT) NABILASHWINI OSBORN ([id number]) 1935 M Date Time Provider Department 10/04/24 ROSEANNALEGAYE MOTT During your visit today, we recorded the following information about you: Allergies As of Date: 10/04/2024 (No Known Allergies) Date Reviewed: 09/25/2024 Reviewed by: Jessi Zavala APRN.PARI MUTUAL TICKET CHECKER - Fully Assessed Reason for Visit: Omnipod [...] 5,) crtg Change every 72 hours. - yvqpxz-vsefzczr-cbqrokn (CREON) 24,000-76,000 -120,000 unit cpDR Take 2 [...] Observed: 10/04/2024 12:00 AM Status: COMPLETED Source: [facility] Telephone (ZEALERT) ASHWINI VICKERS ([id number]) 1935 M Date Time Provider Department 10/04/24 GAYE MATA During your visit today, we recorded the following information about you: Gaye Mata, KARIN 10/04/2024 4:41 PM Signed Patent called stating that he is out of Vimbly G7 CGM sensors and has been having difficulty getting the shipment from [employer], his DME supplier. Patient states he made 3 calls to them this week, one including a slitting and shipping supervisor at [employer], who promised that the shipment was sent and would be received in a day or two. Advised patient to contact his provider's office to see if they are able to help as they submitted all the original paperwork to [employer] back in August and I am not sure if they are waiting on something from the office. Patient was also told to see if the provider's office had Dexcom G7 sensor samples to provide until his shipment arrives so he does not have to drive out to [facility]. Patient verbalized understanding. Allergies As of Date: 10/04/2024 (No Known Allergies) Date Reviewed: 09/25/2024 Reviewed by: Jessi Zavala APRN.PARI MUTUAL TICKET CHECKER - Fully Assessed Reason for Visit: Vimbly G7 CGM supply issues [Other] Prescriptions as [...] Inject 1 mg subcutaneously as needed. - xwofnf-ogcszkxo-kjbcdmx (CREON) 24,000-76,000 -120,000 unit cpDR Take 2 [...] Observed: 09/27/2024 12:00 AM Status: COMPLETED Source: [facility] Telephone (ZEALERT) ASHWINI VICKERS ([id number]) 1935 M Date Time Provider Department 09/27/24 GAYE MATASarah During your visit today, we recorded the following information about you: Allergies As of Date: 09/27/2024 (No Known Allergies) Date Reviewed: 09/25/2024 Reviewed by: Jessi Zavala APRN.[facility] - Fully Assessed Reason for Visit: [employer] 5 pump follow up call [Other] Prescriptions [...] 5,) crtg Change every 72 hours. - jjhmbb-hldorzhq-qsxpaed (CREON) 24,000-76,000 -120,000 unit cpDR Take 2 [...] Encounter Status:Closed by GAYE MATA on 09/27/24 [facility] Observed: 09/27/2024 12:00 AM Status: COMPLETED Source: [facility] Telephone (LIANNA) ASHWINI VICKERS ([id number]) 1935 M Date Time Provider Department 09/27/24 GAYE MATA During your visit today, we recorded the following information about you: Gaye Mata RN 09/27/2024 1:23 PM Signed In error Allergies As of Date: 09/27/2024 (No Known Allergies) Date Reviewed: 09/25/2024 Reviewed by: Jessi Zavala APRN.PARI MUTUAL TICKET CHECKER - Fully Assessed Prescriptions as of 09/27/2024 [...] 5,) crtg Change every 72 hours. - xvkjlx-gmzexdfo-tdwmphw (CREON) 24,000-76,000 -120,000 unit cpDR Take 2 [...] Observed: 09/26/2024 12:00 AM Status: COMPLETED Source: [facility] Telephone (ENDOLN) ASHWINI VICKERS ([id number]) 1935 M Date Time Provider Department 09/26/24 [...] below Stated understanding [facility] Advised to f/u with endo [...] 09/26/2024 11:55 AM Addendum Provided report to [facility]. Informed of BG of 614 mg/dL [...] It appears patient has been discharged from [facility] around 10:00 AM. His blood sugar has greatly improved and is at/near range per pump report today (see below). Please reach out to patient/ to see how patient is doing. I will also have Gaye (pump dog trainer) reach out to them to review [...] LPN 09/27/2024 5:50 PM Signed Please see [email or web address].iot message 09/27/24 Allergies As of Date: 09/26/2024 [...] 5,) crtg Change every 72 hours. - pwvjds-pbpusbxi-xxdnxbg (CREON) 24,000-76,000 -120,000 unit cpDR Take 2 [...] ed: 09/25/2024 3:34 PM Status: F Source: [facility] Order Comment: Specimen Type : URINE SPECIMEN Ordering Facility: [facility] Address: [address] [place], [place] [id number] TYPE CODE TESTS RESULT OUT OF RANGE REFERENCE UNITS LAB 2161-8(LOINC) Creat Ur-mCnc 19.1 Low 20.0-300.0 m g/dL LAB 42482-4(LOINC ) Microalbumin Ur-mCnc 20.2 mg/L LAB 9318-7(LOINC) [...] 3(1), 1-150. Performed By: #### UACR #### [facility] CLIA [id number] [address] [place] [address] [place] COMP METAB 2000 PNL SERPL Collected: 3:20 PM Status: F Source: [facility] Order Comment: Specimen Type : BLOOD SPECIMEN Ordering Facility: [facility] Address: [address] [place] [address] TYPE CODE TESTS RESULT OUT OF RANGE REFERENCE UNITS LAB 2885-2(LOINC) Prot SerPl-mCnc 7.1 6.3-8.0 g/dL LAB 1751-7(LOINC) Albumin SerPl-mCnc 3.9 3.9-4.9 g/dL LAB 77387-6(LOINC) Calcium SerPl-mCnc 9.3 8.5-10.2 mg/dL LAB 1975-2(LOINC) Bilirub SerPl-mCnc 0.5 0.2-1.3 mg/dL LAB 6768-6(LOINC) ALP SerPl-cCnc 156 High 38-113 U/L LAB 1920-8(LOINC) AST SerPl-cCnc 76 High 14-40 U/L LAB 1742-6(LOINC) ALT SerPl-cCnc 43 10-54 U/L LAB 2345-7(LOINC) Glucose SerPl-mCnc 614 High 74-99 mg/dL Result Comment: The [place] Diabetes Association (ADA) provides guidance for cutoff [...] Standards of Medical Care in Diabetes 2016, [place] Diabetes Association. Diabetes Care. 2016.39(Suppl 1). LAB 3094-0(LOINC) BUN SerPl-mCnc 37 High 9-24 mg/ dL LAB 2160-0(LOINC) Creat SerPl-mCnc 1.09 0.73-1.22 mg/dL LAB 2951-2(LOINC) Sodium SerPl-sCnc 127 Low 136-144 mmol/L LAB 2823-3(LOINC) Potassium SerPl-sCnc 5.2 High 3.7-5.1 mmol/L LAB 2075-0(LOINC) Chloride SerPl-sCnc 86 Low 98-107 mmol/L LAB 2028-9(LOINC) CO2 SerPl-sCnc 24 22-30 mmo l/L LAB 33997-2(LOINC) Anion Gap SerPl-sCnc 17 High 8-15 mmol/L LAB 11337-2(LOINC) Creatinine + eGFR Pnl SerPlBld 66 >=60 [...] Performed By: #### LIPHONG, 24 323-8 #### [facility] CLIA [id number] [address] [place] [address] [place] LIPID PANEL, NONFASTING Collected: 09/25/2024 3:20 PM Status: F Source: [facility] Order Comment: Specimen Type : BLOOD SPECIMEN Ordering Facility: [facility] Address: [address], [place] [address] TYPE CODE TESTS RESULT OUT OF RANGE [...] Desk Reference: National Heart, Lung, and Blood [place]. National Institutes of Health. 2001: NIH Publication No. 01-3305. 2. An International Atherosclerosis Society position paper: global recommendations for the management of dyslipidemia: executive summary, Atherosclerosis. 2014: 232(2):410-413. Performed By: #### LIPNF, 24 323-8 #### [facility] CLIA [id number] [address] [place] [address] [place] CNOV Observed: 09/25/2024 2:30 PM Status: COMPLETED Source: [facility] Office Visit (ENDOLN) NABILASHWINI OSBORN ([id number]) 1935 M Date Time Provider Department 09/25/24 2:30 PM JESSI ZAVALA ENDOLN During your visit today, we recorded the following information about you: Pulse Blood pressure Weight 60/minute 162/93 63.1 kg Jessi Zavala APRN.[employer]I MUTUAL TICKET CHECKER 09/26/2024 11:42 AM Addendum Endocrinology Follow Up [...] in the meantime, but was able to picker Novolog on 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 Per patient, this was done due to [...] by mouth once daily. Intestinal Chayo Modifiers luwdgr-tijpcxqw-dpyrdmv (CREON) 24,000-76,000 -120,000 unit cpDR Take 2 capsules by mouth three times daily with meals. and 1 with snacks (8/day) Digestive Enzyme Mixtures lutein-zeaxanthin 25-5 mg cap Take by mouth once daily. Alternative Therapy - Antioxidant Omeprazole Magnesium 20 mg tablet Take 20 mg by mouth. Gastric Acid Secretion Compounding And Finishing Supervisor - Proton Pump Inhibitors (PPIs) PARoxetine (PAXIL) 40 mg tablet Take 40 mg by mouth every morning. Antidepressant - Selective Serotonin Reuptake Inhibitors (SSRIs) tamsulosin (FLOMAX) 0.4 mg Take 0.4 mg by mouth. Prostatic Hypertrophy Agent - clsfe-1-Jpldidcbwqhr Antagonists Physical Activity: No formal program Diet: [...] - 1.30 mg/dL 1.31 High TBH EGFR-AF BHUTANESE >=60 mL/min/1.73m 2 >60 TBH EGFR-NON AF BHUTANESE >=60 mL/min/1.73m 2 52 Low BUN CREATININE RATIO 17.6 CALCIUM 8.5 - 10.1 mg/dL 9 Resulting Agency TB Specimen Collected: 09/13/24 9:23 AM Performed by: [employer] Last Resulted: 09/13/24 10:54 AM Received From: ZUGGI Result Received: 09/25/24 2:18 PM Impression/Recommendations IMPRESSION [...] LDL , TG LIPID PANEL (EXTERNAL) Order: [id number] Component Ref Range AND Units Cholesterol 150 - 200 mg/dL 97 Low Triglycerides 27 - 150 mg/dL 38 HDL Cholesterol >39 mg/dL 50 VLDL 0 - 30 mg/dL 8 LDL (calc) <130 mg/dL 39 Cholesterol:HDL Ratio 1.0 - 5.0 1.9 Resulting Agency [facility] Specimen Collected: 01/22/24 6:06 AM Performed by: OpenX Last Resulted: 01/22/24 1:58 PM Received From: [facility] Result Received: 07/06/24 9:37 AM -- This [...] Date Reviewed: 09/25/2024 Reviewed by: Jessi Zavala APRN.[employer]I M[employer]UAL TICKET CHECKER - Fully Assessed Reason for Visit: Diabetes [34] Primary Visit Diagnosis: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 - rywgch-czlrbnfz-caqpsbg (CREON) 24,000-76,000 -120,000 unit cpDR Take 2 [...] for Encounter Date Provider Department Center 09/25/2024 [id number], [facility] Encounter Status:Closed by JESSI ZAVALA on 09/25/24 PROGRESS Observed: 09/25/2024 2:25 PM Status: COMPLETED Source: [facility] ID: [id number] Author: JESSI ZAVALA APRN.PARI MUTUAL TICKET CHECKER Service: ? Author Type: Nurse Practitioner Type: [...] in the meantime, but was able to picker Novolog on 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 Per patient, this was done due to [...] by mouth once daily. Intestinal Chayo Modifiers soofmn-pmslcpcs-njqgtqa (CREON) 24,000-76,000 -120,000 unit cpDR Take 2 capsules by mouth three times daily with meals. and 1 with snacks (8/day) Digestive Enzyme Mixtures lutein-zeaxanthin 25-5 mg cap Take by mouth once daily. Alternative Therapy - Antioxidant Omeprazole Magnesium 20 mg tablet Take 20 mg by mouth. Gastric Acid Secretion Compounding And Finishing Supervisor - Proton Pump Inhibitors (PPIs) PARoxetine (PAXIL) 40 mg tablet Take 40 mg by mouth every morning. Antidepressant - Selective Serotonin Reuptake Inhibitors (SSRIs) tamsulosin (FLOMAX) 0.4 mg Take 0.4 mg by mouth. Prostatic Hypertrophy Agent - dcjfa-5-Ierwkmdysffo Antagonists Physical Activity: No formal program Diet: [...] - 1.30 mg/dL 1.31 High TBH EGFR-AF BHUTANESE >=60 mL/min/1.73m 2 >60 TBH EGFR-NON AF BHUTANESE >=60 mL/min/1.73m 2 52 Low BUN CREATININE RATIO 17.6 CALCIUM 8.5 - 10.1 mg/dL 9 Resulting Agency TB Specimen Collected: 09/13/24 9:23 AM Performed by: [employer] Last Resulted: 09/13/24 10:54 AM Received From: ZUGGI Result Received: 09/25/24 2:18 PM Impression/Recommendations IMPRESSION [...] LDL , TG LIPID PANEL (EXTERNAL) Order: [id number] Component Ref Range AND Units Cholesterol 150 - 200 mg/dL 97 Low Triglycerides 27 - 150 mg/dL 38 HDL Cholesterol >39 mg/dL 50 VLDL 0 - 30 mg/dL 8 LDL (calc) <130 mg/dL 39 Cholesterol:HDL Ratio 1.0 - 5.0 1.9 Resulting Agency [facility] Specimen Collected: 01/22/24 6:06 AM Performed by: [facility] Last Resulted: 01/22/24 1:58 PM Received From: [facility] Result Received: 07/06/24 9:37 AM -- This [...] Observed: 09/22/2024 12:00 AM Status: COMPLETED Source: [facility] Telephone (ELIZABETHPackbackSarah) ASHWINI VICKERS ([id number]) 1935 M Date Time Provider Department 09/22/24 [...] Date Reviewed: 07/06/2024 Reviewed by: Jessi Zavala APRN.[employer]I M[employer]UAL TICKET CHECKER - Fully Assessed Prescriptions as of 09/22/2024 [...] 5,) crtg Change every 72 hours. - vhvxtm-xlboplvm-yajcfrb (CREON) 24,000-76,000 -120,000 unit cpDR Take 2 [...] Observed: 09/22/2024 12:00 AM Status: COMPLETED Source: [facility] Telephone (iSentium) ASHWINI VICKERS ([id number]) 1935 M Date Time Provider Department 09/22/24 [...] Date Reviewed: 07/06/2024 Reviewed by: Jessi Zavala APRN.[employer]I M[employer]UAL TICKET CHECKER - Fully Assessed Reason for Visit: Omnipod [...] 5,) crtg Change every 72 hours. - lxwxla-bnbwjfbw-tivulpg (CREON) 24,000-76,000 -120,000 unit cpDR Take 2 [...] Observed: 09/21/2024 12:00 AM Status: COMPLETED Source: [facility] Telephone (iSentium) ASHWINI VICKERS ([id number]) 1935 M Date Time Provider Department 09/21/24 GAYE MATA During your visit today, we recorded the following information about you: Allergies As of Date: 09/21/2024 (No Known Allergies) Date Reviewed: 07/06/2024 Reviewed by: Jessi Zavala APRN.[employer]I MUTUAL TICKET CHECKER - Fully Assessed Reason for Visit: Omipod [...] 5,) crtg Change every 72 hours. - cognof-gxlpzqrj-nmeqrqj (CREON) 24,000-76,000 -120,000 unit cpDR Take 2 [...] Observed: 09/04/2024 1:00 PM Status: COMPLETED Source: [facility] Nurse Visit (ELIZABETHBHT) ASHWINI VICKERS ([id number]) 1935 M Date Time Provider Department 09/04/24 1:00 PM GAYE MATA During your visit today, we recorded the following information about you: Gaye Mata, KARIN 09/04/2024 3:22 PM Signed DIABETES SELF-MANAGEMENT EDUCATION AND SUPPORT FOLLOW-UP VISIT Type of Diabetes: Type 2 Location: [place] Type of visit: In person individual Types [...] meter for manual fingersticks, not connected to [employer]ug[employer] Telebit Type of visit: In person individual Patient started today on Omnipod 5 insulin pump. Type of training:upgrade from Telebit If upgrade, patient was previously on the [...] Name: Insulet Omnipod? 5 System Serial Number: [id number] Sync Date: 09/04/24 Device Time Offset (hh:mm): +00:00 Device Name: Insulet Omnipod Dash? System Serial Number: [id number] Sync Date: 03/05/22 Device Time Offset (hh:mm): +00:00 Device Name: Insulet Omnipod Dash? System Serial Number: [id number] Sync Date: 11/14/21 Device Time Offset (hh:mm): +00:00 Device Name: Insulet Omnipod DASH? [place] Serial Number: Insulet Dash Sync Date: 09/19/20 Device Time Offset (hh:mm): +00:00 Device Name: Insulet Omnipod Dash? System Serial Number: [id number] Sync Date: 09/19/20 Device Time Offset (hh:mm): [...] weeks. This is a non-billable encounter through flikdate but will be billed to the following [...] for patient selected goal(s) with dietitian and/or particle board supervisor within 2-4 weeks/months via office visit, Novogy message, email, or phone call. Contact information provided to patient for particle board supervisor. Educator to contact patient in 3 days [...] vary based on the plan requirements. Call [phone] to schedule a diabetes education follow up visit. Time Spent (Minutes): 120 This visit note will be communicated to the healthcare provider via access to shared medical record. SIGNATURE: Gaye Mata RN PATIENT NAME: Ashwini Vickers DATE: September 04, 2024 TIME: 12:45 PM PAGER: Allergies As of Date: 09/04/2024 (No Known Allergies) Date Reviewed: 07/06/2024 Reviewed by: Jessi Zavala APRN.[employer]I MUTUAL TICKET CHECKER - Fully Assessed Reason for Visit: Diabetes Self Management Education [9667] Primary Visit Diagnosis:Type 1 diabetes mellitus with [...] 5,) crtg Change every 72 hours. - cnizzp-ezbktfzx-emhhvpf (CREON) 24,000-76,000 -120,000 unit cpDR Take 2 [...] Observed: 09/04/2024 1:00 PM Status: COMPLETED Source: [facility] ID: [id number] Author: GAYE MATA RN Service: ? Author Type: Registered Nurse Type: Progress Notes Filed: 09/04/2024 15:22 Note Text: DIABETES SELF-MANAGEMENT EDUCATION AND SUPPORT FOLLOW-UP VISIT Type of Diabetes: Type 2 Location: [place] Type of visit: In person individual Types [...] Name: Insulet Omnipod? 5 System Serial Number: [id number] Sync Date: 09/04/24 Device Time Offset (hh:mm): +00:00 Device Name: Insulet Omnipod Dash? System Serial Number: [id number] Sync Date: 03/05/22 Device Time Offset (hh:mm): +00:00 Device Name: Insulet Omnipod Dash? System Serial Number: [id number] Sync Date: 11/14/21 Device Time Offset (hh:mm): +00:00 Device Name: Insulet Omnipod DASH? [place] Serial Number: Insulet Dash Sync Date: 09/19/20 Device Time Offset (hh:mm): +00:00 Device Name: Insulet Omnipod Dash? System Serial Number: [id number] [facility] Date: 09/19/20 Device Time Offset (hh:mm): +00:00 [...] weeks. This is a non-billable encounter through flikdate but will be billed to the following [...] previous visit GOAL FOLLOW-UP Patient will use [employer] Whale 5 custom foods feature and Dexcom G7 [...] for patient selected goal(s) with dietitian and/or particle board supervisor within 2-4 weeks/months via office visit, Novogy message, email, or phone call. Contact information provided to patient for particle board supervisor. Educator to contact patient in 3 days [...] vary based on the plan requirements. Call [phone] to schedule a diabetes education follow up visit. Time Spent (Minutes): 120 This visit note will be communicated to the healthcare provider via access to shared medical record. SIGNATURE: Gaye Mata RN PATIENT NAME: Ashwini Vickers DATE: September 04, 2024 TIME: 12:45 PM PAGER: JEVON Observed: 08/31/2024 12:00 AM Status: COMPLETED Source: [facility] Telephone (DEMBHT) ASHWINI VICKERS ([id number]) 1935 M Date Time Provider Department 08/31/24 [...] Omnipod, Glooko, and Dexcom G7, his smartphone, OmnCellworks 5 controller phone fully charged and updated if needed so the pump start will go smoothly. requested email resent to her with instructions on day of training information to [email or web address] Allergies As of Date: 08/31/2024 (No Known Allergies) Date Reviewed: 07/06/2024 Reviewed by: Jessi Zavala APRN.PARI MUTUAL TICKET CHECKER - Fully Assessed Reason for Visit: Appointment [...] 5,) crtg Change every 72 hours. - qhakgp-tkqxrlbj-vimxicg (CREON) 24,000-76,000 -120,000 unit cpDR Take 2 [...] Observed: 08/15/2024 12:00 AM Status: COMPLETED Source: [facility] Telephone (ENDOLN) ASHWINI VICKERS ([id number]) 1935 M Date Time Provider Department 08/15/24 JESSI ZAVALA During your visit today, we recorded the following information about you: Lit Goodwin MA 08/15/2024 10:24 AM Signed Received a fax from [facility] for a physician's order. Placed on Jessi's desk for signature on form and chart notes. Lit Goodwin MA 08/15/2024 11:57 AM Signed Form completed, faxed, confirmation received. Sent for scan. Allergies As of Date: 08/15/2024 (No Known Allergies) Date Reviewed: 07/06/2024 Reviewed by: Souleymane, Jessi, OUTSOLE SPLICER.PARI MUTUAL TICKET CHECKER - Fully Assessed Reason for Visit: Forms [913] Cmt: [employer]- Physcians order Prescriptions as of [...] 5,) crtg Change every 72 hours. - lrctbe-heyvwfzn-spggomk (CREON) 24,000-76,000 -120,000 unit cpDR Take 2 [...] Observed: 08/09/2024 12:00 AM Status: COMPLETED Source: [facility] Telephone (ENDOLN) ASHWINI VICKERS ([id number]) 1935 M Date Time Provider Department 08/09/24 JESSI ZAVALA During your visit today, we recorded the following information about you: Mireya Ny MA 08/09/2024 10:39 AM Signed A form has been received from [facility] for [facility] steen. Faxed [facility] note 07/06/24 to [phone]. Confirmation received. Allergies As of Date: 08/09/2024 (No Known Allergies) Date Reviewed: 07/06/2024 Reviewed by: Jessi Zavala APRN.PARI MUTUAL TICKET CHECKER - Fully Assessed Reason for Visit: Forms [...] 5,) crtg Change every 72 hours. - aswrwr-ysnqzvym-kaykcon (CREON) 24,000-76,000 -120,000 unit cpDR Take 2 [...] Observed: 07/25/2024 1:04 PM Status: COMPLETED Source: [facility] ID: [id number] Author: GAYE MATA RN Service: ? Author Type: Registered Nurse Type: Progress Notes Filed: 07/25/2024 17:09 Note Text: DIABETES CARE AND EDUCATION VISIT Location: [place] Type of visit: In person individual PATIENT'S [...] Name: Carley Hernandez Dash? System Serial Number: [id number] Syn Date: 07/06/24 Device Time Offset (hh:mm): [...] not G7 eliane. Educator needed to call Vimbly for assistance in resetting password as patient [...] terminology: basal, bolus, carb ratio, BG target, arwosun-br-qzeoe/duration, and patient did not bring insulin vials with him so we were unable to start pump today. Patient and leaving for [place] for a month tomorrow and has rescheduled [...] TOPICS: 1. Patient and to return after [place] trip to start Omnipod 5 switch from DASH. Patient advised to remember to bring insulin vials, Omnipod 5 pods, phone, controller, and Omnipod ID login and password to next visit. DIABETES CARE AND EDUCATION PLAN: Individual follow-up Patient does not have [facility]. Email sent prior to today's visit on [...] Observed: 07/25/2024 1:00 PM Status: COMPLETED Source: [facility] Nurse Visit (MOMOT) ASHWINI VICKERS ([id number]) 1935 M Date Time Provider Department 07/25/24 1:00 PM GAYE MATA During your visit today, we recorded the following information about you: Gaye Mata, KARIN 07/25/2024 5:09 PM Signed DIABETES CARE AND EDUCATION VISIT Location: [place] Type of visit: In person individual PATIENT'S [...] Device Name: Carley Desai? System Serial Number: [id number] Sync Date: 07/06/24 Device Time Offset (hh:mm): [...] basics AND daily use and CGM type: L8 SmartLight with reader. Patient understand he will need to download Dexcom G7 eliane on his Iphone SE. Patient unable to recall log in for Dexcom eliane. Patient downloaded G6 eliane, not G7 eliane. Educator needed to call Vimbly for assistance in resetting password as patient [...] terminology: basal, bolus, carb ratio, BG target, gbaqnmq-gr-iwzuk/duration, and patient did not bring insulin vials with him so we were unable to start pump today. Patient and leaving for [place] for a month tomorrow and has rescheduled [...] TOPICS: 1. Patient and to return after [place] trip to start Omnipod 5 switch from DASH. Patient advised to remember to bring insulin vials, Omnipod 5 pods, phone, controller, and Omnipod ID login and password to next visit. DIABETES CARE AND EDUCATION PLAN: Individual follow-up [facility] Email sent prior to today's visit on [...] Date Reviewed: 07/06/2024 Reviewed by: Jessi Zavala APRN.PARI MUTUAL TICKET CHECKER - Fully Assessed Reason for Visit: Diabetes [...] 5,) crtg Change every 72 hours. - mxspsv-bnjlgdku-furbzuw (CREON) 24,000-76,000 -120,000 unit cpDR Take 2 [...] Observed: 07/21/2024 12:00 AM Status: COMPLETED Source: [facility] Telephone (ZEALERT) RANCHOASHWINI ([id number]) 1935 M Date Time Provider Department 07/21/24 [facility] During your visit today, we recorded the following information about you: Allergies As of Date: 07/21/2024 (No Known Allergies) Date Reviewed: 07/06/2024 Reviewed by: Jessi Zavala APRN.PARI MUTUAL TICKET CHECKER - Fully Assessed Reason for Visit: Appointment [...] 5,) crtg Change every 72 hours. - vraluo-jwtbiihk-ntjrlid (CREON) 24,000-76,000 -120,000 unit cpDR Take 2 [...] 07/17/2024 4:16 P M Status: F Source: [facility] TYPE CODE TESTS RESULT OUT OF RANGE REFERENCE UNITS LAB GLUPOC Glucose Poc Glucometers 299 mg/dL Result Comment: Random Gluco se Reference Range is dependent on time and content of last meal. Glucose of more than 200 mg/dL in a nonstressed, ambulatory subject supports the diagnosis of Diabetes Mellitus. PERFORMED BY: [facility] [address] [facility] [place] [address] PATHOLOGIST LAB ASST ANDRE PERALTA M.D. Performed By: #### GLULS ### # Point of Care testing , GLUCOSE POCT GLUCOMETERS Collected: 07/17/2024 11:57 AM Status: F Source: [facility] TYPE CODE TESTS RESULT OUT OF RANGE REFERENCE UNITS LAB GLUPOC Glucose Poc Glucometers 341 mg/dL Result Comment: Random Gluco se Reference Range is dependent on time and content of last meal. Glucose of more than 200 mg/dL in a nonstressed, ambulatory subject supports the diagnosis of Diabetes Mellitus. PERFORMED BY: [facility] [address] [place] [address] PATHOLOGIST LAB ASST ANDRE PERALTA M.D. Performed By: #### GLULS ### # Point of Care testing , GLUCOSE POCT GLUCOMETERS Collected: 07/17/2024 9:27 A M Status: F Source: [facility] TYPE CODE TESTS RESULT OUT OF RANGE REFERENCE UNITS LAB GLUPOC Glucose Poc Glucometers 386 mg/dL Result Comment: Random Gluco se Reference Range is dependent on time and content of last meal. Glucose of more than 200 mg/dL in a nonstressed, ambulatory subject supports the diagnosis of Diabetes Mellitus. PERFORMED BY: [address] [address] PATHOLOGIST LAB ASST ANDRE PERALTA M.D. Performed By: #### GLULS ### # Point of Care testing , GLUCOSE POCT GLUCOMETERS Collected: 07/17/2024 9:25 A M Status: F Source: [facility] TYPE CODE TESTS RESULT [...] epeat Test LAB COMM2 Commemt2 WILL NOTIFY DR/PLANT AND EQUIPMENT WORKER COMM3 Commemt3 Cleaned Meter Result Comment: PERFORMED BY : [address] [address] PATHOLOGIST LAB ASST ANDRE PERALTA M.D. Performed By: #### GLULS ### # Point of Care testing , GLUCOSE POCT GLUCOMETERS Collected: 07/17/2024 7:39 A M Status: F Source: [facility] TYPE CODE TESTS RESULT [...] Glu2: WILL N OTIFY /KARIN PERFORMED BY: [address] [address] PATHOLOGIST LAB ASST ANDRE PERALTA M.D. Performed By: #### GLULS ### # Point of Care testing , GLUCOSE POCT GLUCOMETERS Collected: 07/17/2024 7:37 A M Status: F Source: [facility] TYPE CODE TESTS RESULT [...] Glu2: Will R epeat Test PERFORMED BY: [facility] [address] [place] [address] PATHOLOGIST LAB ASST ANDRE PERALTA M.D. Performed By: #### GLULS ### # Point of Care testing , PROTHROMBIN TIME INR Collected: 07/17/2024 5:21 AM S tatus: F Source: [facility] TYPE CODE TESTS RESULT OUT OF RANGE REFERENCE UNITS LAB R PT Prothrombin Time 14.5 High 9.0-12.9 s Result Comment: A hematocrit value greater than 55% may lead to inaccurate results in coagulation testing. Patients having hematocrit values >55% require a special collection tube for coagulation studies. Please contact the laboratory at [phone] for redraw instructions. LAB INR INR 1.3 [...] PTT, PATH SLIDE REV, DIFF CBC #### [facility] [address] [place] [id number] [place] PARTIAL THROMBOPLASTIN TIME Collected: 07/17/2024 5:2 1 AM Status: F Source: [facility] TYPE CODE TESTS RESULT OUT OF RANGE REFERENCE UNITS LAB PTT Partial Thromboplastin Time 30.6 Normal 25.1-36.5 s Result Comment: A hematocrit value greater than 55% may lead to inaccurate results in coagulation testing. Patients having hematocrit values >55% require a special collection tube for coagulation studies. Please contact the laboratory at [phone] for redraw instructions. PERFORMED BY: [facility] [address] [place] [address] PATHOLOGIST LAB ASST ANDRE PERALTA M.D. Performed By: #### PT, CMP, A1C WTH eA, PTT, PATH SLIDE REV, DIFF CBC #### [facility] [address] [place] [address] [facility] COMPREHENSIVE METABOLIC PANEL Collected: 07/17/2024 5:21 AM Status: F Source: [facility] TYPE CODE TESTS RESULT OUT OF [...] Pharmacy 45.38 Result Comment: PERFORMED BY : [facility] [address] [place] [address] PATHOLOGIST LAB ASST ANDRE PERALTA M.D. Performed By: #### PT, CMP, A1C WTH eA, PTT, PATH SLIDE REV, DIFF CBC #### [facility] [address] [place] [id number] [facility] DIFF AND CBC Collected: 07/17/2024 5:21 AM Status: F Source: [facility] TYPE CODE TESTS RESULT [...] Normal Normal Result Comment: PERFORMED BY : [facility] [address] [place] [address] PATHOLOGIST LAB ASST ANDRE PERALTA M.D. Performed By: #### PT, CMP, A1C WTH eA, PTT, PATH SLIDE REV, DIFF CBC #### [facility] [address] [place] [id number] [facility] PATHOLOGIST SLIDE REVIEW Collected: 07/17/2024 5:21 A M Status: F Source: [facility] TYPE CODE TESTS RESULT OUT OF RANGE REFERENCE UNITS LAB PATH SLIDE REV Pathologist Slide Review Ordered Path Review Result Comment: PERFORMED BY : [place] [address] PATHOLOGIST LAB ASST ANDRE PERALTA M.D. Performed By: #### PT, CMP, A1C WTH eA, PTT, PATH SLIDE REV, DIFF CBC #### [facility] [address] [place] [id number] [facility] A1C WITH ESTIMATED AVERAGE GLU Collected: 07/17/2024 5:21 AM Status: F Source: [facility] TYPE CODE TESTS RESULT OUT OF RANGE REFERENCE UNITS LAB .A1C Hemoglobin A1C 9.8 High 4.3-5.6 % Result Comment: Increased ri sk for diabetes: 5.7 - 6.4 diabetes: >6.4 glycemic control for adults with diabetes: <7.0 LAB eAG Estimated Average Glucose 235 mg/dL Result Comment: PERFORMED BY : [place] [address] PATHOLOGIST LAB ASST ANDRE PERALTA M.D. Performed By: #### PT, CMP, A1C WTH eA, PTT, PATH SLIDE REV, DIFF CBC #### [place] [id number] [facility] RESPIRATORY (UPPER) PANEL, PCR Observed: 07/17/2024 4:15 AM Status: F Source: [facility] Results called at 0548 on 07/17/24 Adenovirus [...] Influenza A H3 Blank Space PERFORMED BY: [place] [address] PATHOLOGIST LAB ASST ANDRE PERALTA M.D. Performed By: #### RESP PANE L UPP., BIOFIRECOVNOTDE #### [facility] [address] [place] [address] BIOFIRE NOT DETECTED Collected: 07/17/2024 4:15 AM S tatus: F Source: [facility] TYPE CODE TESTS RESULT OUT OF RANGE REFERENCE UNITS LAB BIOFIRECOVNOTDE BioFire Not Detected Not Detected Not Detecte Result Comment: This is a du plicate RP2.1 COVID (PCR) result to be used for statistical tracking purpose only. PERFORMED BY: [place] [id number] PATHOLOGIST LAB ASST ANDRE PERALTA M.D. Performed By: #### RESP PANE L UPP., BIOFIRECOVNOTDE #### [facility] [address] [place], [place] [id number] [facility] L Observed: 07/17/2024 12:00 AM Status: F Source: [facility] ----- ------- Specimen: Received: 07/17/24 Status: LYUDMILA Sangeetha Num: [id number] Spec Type: Impression Subm Dr: Indra Guillory MD Tissues: PATHPER Procedures: PATHREVIEW ----- ------- Age/ Patient Sex Location Account Attending Physician ----- ------- Ashwini Vickers 89/M 4N [id number] Lisa Hidalgo MD ----- ------- SPEC NUM: [id number] RECD: 07/17/24 STATUS: LYUDMILA SANGEETHA NUM: [id number] MARANDA: 07/17/24- SUBM DR: Indra Guillory MD ENTERED: 07/17/[address]: SPEC TYPE: Impression DEPT: IA ORDERED: PATHREVIEW ORDERED: PATHREVIEW Pathologist Review Abnormal [...] CBC laboratory follow- ups are also suggested [facility] [address] ----- ------- Specimen: [id number] Received: 07/17/24 Status: LYUDMILA Sangeetha Num: [id number] Spec Type: Impression Subm Dr: Indra Guillory MD Tissues: PATHPER Procedures: PATHREVIEW ----- ------- Patient: NabilisaakAshwini J [id number] (Continued) ----- ------- Specimen: Received: 07/17/24 (Continued) Signed (signature on file) Donovan Bunch MD 07/17/24 1128 ----- ------- Specimen: Received: 07/17/24 Status: LYUDMILA Gómez Num: [id number] Spec Type: Impression Subm Dr: Indra Guillroy MD Tissues: PATHPER Procedures: PATHREVIEW ----- ------- Patient: Ashwini Vickers [id number] (Continued) ----- ------- Specimen: Received: 07/17/24 (Continued) CBC Date Time Test Result Flag (u) Normal Range 07/16/24 1230 Neut % (Auto) 64.8 . % Lymp % (Auto) 18.9 . % [place] % (Auto) 12.8 . % Eos % (Auto) 2.7 . % Baso % (Auto) 0.8 . % NRBC% 0.2 0-0.5 /100 WBC Neut # (Auto) 4.7 1.8-7.7 x10E3/uL Lymph # (Auto) 1.4 1.00-4.8 x10E3/uL [place] # (Auto) 0.9 H 0.0-0.8 x10E3/uL Eos [...] 1 0-5 % Lymph 18 18-42 % [place] 4 2-11 % Polychrom Slight Hypochrom Marked Poik Marked Aniso Moderate Micro Slight Schisto Moderate Target Moderate Helmet Cells Slight Crenated RBC Moderate Acantho Marked Plt Est Normal Normal Plt Morphology Normal Normal ----- ------- ----- ------- Specimen: [id number] Received: 07/17/24 Status: LYUDMILA Gómez Num: [id number] Spec Type: Impression Subm Dr: Indra Guillory MD Tissues: PATHPER Procedures: PATHREVIEW ----- ------- Patient: RanchoAshwini J [id number] (Continued) ----- ------- Signed (signature on file) Donovan Bunch MD 07/17/24 1128 GLUCOSE POCT GLUCOMETERS Collected: 07/16/2024 7:58 P M Status: F Source: [facility] TYPE CODE TESTS RESULT OUT OF RANGE REFERENCE UNITS LAB GLUPOC Glucose Poc Glucometers 327 mg/dL Result Comment: Random Gluco se Reference Range is dependent on time and content of last meal. Glucose of more than 200 mg/dL in a nonstressed, ambulatory subject supports the diagnosis of Diabetes Mellitus. PERFORMED BY: [facility] [place] [address] PATHOLOGIST LAB ASST ANDRE PERALTA M.D. Performed By: #### GLULS ### # Point of Care testing , CT ANGIO CHEST PE PROTOCOL Observed: 11/2024 4:36 PM Status: COMPLETED Source: [facility] Main [place] [address] [place] [address] CT Scan Report Signed Patient: Ashwini Vickers MR#: [id number] 353 : 1935 Acct:[id number] Age/Sex: 89 / M ADM Date: 07/16/24 Loc: ER Room: Type: [facility] ER Attending Dr: Copies to: [...] Fidencio Valentin M.D.07/16/2024 4:48 PM Dictation Location: [place] [address] Transcribed By: [facility] 07/16/24 1648 Dictated By: Fidencio Valentin II, MD 07/16/24 1636 Signed By: <Electronically signed by Fidencio Valentin II, MD in OV> 07/16/24 1648 TROPONIN I HIGH SENSITIVITY Collected: 07/16/2024 2:3 7 PM Status: F Source: [facility] TYPE CODE TESTS RESULT OUT OF RANGE REFERENCE UNITS LAB HS TROP Troponin I High Sensitivity 29.4 High 0.0-20.0 pg/mL Result Comment: PERFORMED BY : [place] [address] PATHOLOGIST LAB ASST ANDRE PERALTA M.D. Performed By: #### HS TROP # ### [address] ECG 12 LEAD ECG Observed: 07/16/2024 2:04 PM Status: COMPLETED Source: [facility] [address] Electrocardiograph Report Signed Patient: Ashwini Vickers MR#: [id number] 353 : 1935 Acct:[id number] Age/Sex: 89 / M ADM Date: 07/16/24 Loc: Room: [address] [place] [address] Type: ADM INOo Attending Dr: Indra Guillory [...] Atrial-paced rhythm Confirmed by Bertin Yepez DO ([id number]) on 07/16/2024 8:00:21 PM Referred By: Electronically Signed By: Bertin Yepez DO Transcribed By: MUS Signed By Bertin Yepez DO 1999 XR CHEST 2V* Observed: 07/16/2024 1:02 PM Status: COMPLETED Source: [facility] Main [place] [id number] XRay Report Signed Patient: sAhwini Vickers MR#: [id number] 353 : 1935 Acct:[id number] Age/Sex: 89 / M ADM Date: 07/16/24 [...] 1:03 PM Dictation Location: RADIO-PC-17 Transcribed By: [facility] 07/16/24 1303 Dictated By: Fidencio Valentin II, MD 07/16/24 1302 Signed By: <Electronically signed by Fidencio Valentin II, MD in OV> 07/16/24 1303 COMPLETE BLOOD COUNT AUTO DIFF Collected: 07/16/2024 12:30 PM Status: F Source: [facility] TYPE CODE TESTS RESULT [...] 0.0-0.2 10*3/uL Result Comment: PERFORMED BY : [address] [address] PATHOLOGIST LAB ASST ANDRE PERALTA M.D. Performed By: #### PT, BMP, BNP, HS TROP, CK, CBC #### [facility] [address] [place] [id number] [facility] BASIC METABOLIC PANEL Collected: 2024 12:30 PM Status: F Source: [facility] TYPE CODE TESTS RESULT [...] Pharmacy 60.91 Result Comment: PERFORMED BY : [place] [address] PATHOLOGIST LAB ASST ANDRE PERALTA M.D. Performed By: #### PT, BMP, BNP, HS TROP, CK, CBC #### [place] [id number] [facility] B-TYPE NATRIURETIC PEPTIDE Collected: 07/16/2024 12:3 0 PM Status: F Source: [facility] TYPE CODE TESTS RESULT OUT OF RANGE REFERENCE UNITS LAB BNP B-Type Natriuretic Peptide 2052.0 High 5-100 pg/mL Result Comment: PERFORMED BY : [place] [id number] PATHOLOGIST LAB ASST ANDRE PERALTA M.D. Performed By: #### PT, BMP, BNP, HS TROP, CK, CBC #### [facility] [address] [place] [id number] [facility] CREATINE KINASE Collected: 12:30 PM Status: F Source: [facility] TYPE CODE TESTS RESULT OUT OF RANGE REFERENCE UNITS LAB CK Creatine Kinase 136 Normal 30-223 U/L Performed By: #### PT, BMP, BNP, HS TROP, CK, CBC #### [place] [id number] [facility] TROPONIN I HIGH SENSITIVITY Collected: 07/16/2024 12: 30 PM Status: F Source: [facility] TYPE CODE TESTS RESULT OUT OF RANGE REFERENCE UNITS LAB HS TROP Troponin I High Sensitivity 32.1 High 0.0-20.0 pg/mL Result Comment: PERFORMED BY : [place] [address] PATHOLOGIST LAB ASST ANDRE PERALTA M.D. Performed By: #### PT, BMP, BNP, HS TROP, CK, CBC #### [place] [id number] [facility] PROTHROMBIN TIME INR Collected: 12:30 PM Status: F Source: [facility] TYPE CODE TESTS RESULT OUT OF RANGE REFERENCE UNITS LAB R PT Prothrombin Time 14.3 High 9.0-12.9 s Result Comment: A hematocrit value greater than 55% may lead to inaccurate results in coagulation testing. Patients having hematocrit values >55% require a special collection tube for coagulation studies. Please contact the laboratory at [phone] for redraw instructions. LAB INR INR 1.2 [...] heart valves: 3 - 4.5 PERFORMED BY: [place] [address] PATHOLOGIST LAB ASST ANDRE PERALTA M.D. Performed By: #### PT, BMP, BNP, HS TROP, CK, CBC #### [address] [address] [facility] ECG 12 LEAD ECG Observed: 07/16/2024 11:42 AM Status: COMPLETED Source: [facility] [address] Electrocardiograph Report Signed Patient: Ashwini Vickers MR#: [id number] 353 : 1935 Acct:[id number] Age/Sex: 89 / M ADM Date: 07/16/24 Loc: Room: [address] [place] [address] Type: ADM INOo Attending Dr: Indra Guillory [...] Atrial-paced rhythm Confirmed by Bertin Yepez DO ([id number]) on 07/16/2024 8:01:11 PM Referred By: Electronically Signed By: Bertin Yepez DO Transcribed By: MUS Signed By Bertin Yepez DO 2000 CNPN Observed: 07/13/2024 12:00 AM Status: COMPLETED Source: [facility] Telephone (ZEALERT) ASHWINI VICKERS ([id number]) 1935 M Date Time Provider Department 07/13/24 [...] training for 07/25/24 at 1-3 pm at [facility]. Location. Patient's Mychart status is PENDING, invite resent via text and to create account. Email sent to [email or web address] with clinic address, time, date, and what [...] Date Reviewed: 07/06/2024 Reviewed by: Jessi Zavala APRN.PARI MUTUAL TICKET CHECKER - Fully Assessed Reason for Visit: Omnipod [...] 5,) crtg Change every 72 hours. - rdiocd-mbdsupyh-vbsviio (CREON) 24,000-76,000 -120,000 unit cpDR Take 2 [...] Observed: 07/13/2024 12:00 AM Status: COMPLETED Source: [facility] Telephone (ZEALERT) ASHWINI VICKERS ([id number]) 1935 M Date Time Provider Department 07/13/24 GAYE MATASarah During your visit today, we recorded the following information about you: Gaye Mata RN 07/13/2024 4:14 PM Signed In error Allergies As of Date: 07/13/2024 (No Known Allergies) Date Reviewed: 07/06/2024 Reviewed by: Jessi Zavala APRN.PARI MUTUAL TICKET CHECKER - Fully Assessed Prescriptions as of 07/13/2024 [...] 5,) crtg Change every 72 hours. - wgrows-lpvragwk-wciflgg (CREON) 24,000-76,000 -120,000 unit cpDR Take 2 [...] Observed: 07/06/2024 11:00 AM Status: COMPLETED Source: [facility] Office Visit (ENDOLN) ASHWINI VICKERS ([id number]) 1935 M Date Time Provider Department 07/06/24 [...] US mail. PCP is DO Marie Rodriguez ([facility]) [address] [place] [address] History of Present Illness Ashwini Vickers is a 89 year old male presents today for evaluation of DM Type 1. Here with and son. 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 Per patient, this was done due to [...] (PROBIOTIC-10 ORAL) Take by mouth once daily. gymmdr-askyapka-blzwqfs (CREON) 24,000-76,000 -120,000 unit cpDR Take 2 capsules by mouth three times daily with meals. and 1 with snacks (8/day) Digestive Enzyme Mixtures lutein-zeaxanthin 25-5 mg cap Take by mouth once daily. Alternative Therapy - Antioxidant Omeprazole Magnesium 20 mg tablet Take 20 mg by mouth. Gastric Acid Secretion Compounding And Finishing Supervisor - Proton Pump Inhibitors (PPIs) PARoxetine (PAXIL) 40 mg tablet Take 40 mg by mouth every morning. Antidepressant - Selective Serotonin Reuptake Inhibitors (SSRIs) tamsulosin (FLOMAX) 0.4 mg Take 0.4 mg by mouth. Prostatic Hypertrophy Agent - jgekn-0-Gqsjkynmpflr Antagonists Physical Activity: No formal program Diet: [...] ains abnormal data COMPREHENSIVE METABOLIC PANEL Order: [id number] Component Ref Range AND Units 5 mo [...] does not use a race coefficient. Resulting [facility] MAIN LAB Specimen Collected: 01/24/24 6:05 AM Performed by: [facility] Last Resulted: 01/24/24 7:22 AM Received From: [facility] Result Received: 07/06/24 9:37 AM Impression/Recommendations IMPRESSION [...] LDL , TG LIPID PANEL (EXTERNAL) Order: [id number] Component Ref Range AND Units 5 mo ago Cholesterol 150 - 200 mg/dL 97 Low Triglycerides 27 - 150 mg/dL 38 HDL Cholesterol >39 mg/dL 50 VLDL 0 - 30 mg/dL 8 LDL (calc) <130 mg/dL 39 Cholesterol:HDL Ratio 1.0 - 5.0 1.9 Resulting Agency [facility] LAB Specimen Collected: 01/22/24 6:06 AM Performed by: [facility] Last Resulted: 01/22/24 1:58 PM Received From: [facility] Result Received: 07/06/24 9:37 AM -- This [...] which included preparing to see the patient, bxec-rt-usky patient care, completing clinical documentation, counseling and [...] ounce protein) 150 calories or less ? [place] (1 slice bread, 1-2 slices turkey or [...] high in calories) 1 small granola bar (Judaism Oats makes smaller granola bar or Special K bar), 10 nuts (try using the 100 calorie snack nut packs to limit the portion) Protein Cereal Bar (such as a Chicfy Protein Bar) Low Calorie Protein Shake (EAS Advantage Carb Control), 1 small apple, orange, peach, pear (one that you can tuck in your palm) Martiniquais Yogurt (has 20 grams of carb, 2 ounces of lean protein) or 6 ounce light yogurt 1/3 cup hummus with celery sticks and baby carrots ? 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 #[id number] HEMOGLOBIN A1C (POC) [9654838] Order #: [id number]. #:[id number] glucagon (GVOKE HYPOPEN 2-PACK) 1 mg/0.2 mL auto-injectorInject 1 mg subcutaneously as needed.Disp: 0.4 mLRfl: 3 insulin glargine (LANTUS) 100 unit/mL injectionIn case of pump failureDisp: Rfl: GLUCOSE, BLOOD (POC) [9740921] Order #: [id number] GLUCOSE, BLOOD (POC) [9210453] Order #: [id number]. #:[id number] insulin pump cart,auto,BT,G6/7 (OMNIPOD 5 G6-G7 PODS, [...] 5,) crtg Change every 72 hours. - tjmoal-slojxoqq-pyvohlg (CREON) 24,000-76,000 -120,000 unit cpDR Take 2 [...] ounce protein) 150 calories or less ? [place] (1 slice bread, 1-2 slices turkey or [...] high in calories) 1 small granola bar (Judaism Oats makes smaller granola bar or Special K bar), 10 nuts (try using the 100 calorie snack nut packs to limit the portion) Protein Cereal Bar (such as a Nature Mapkin Protein Bar) Low Calorie Protein Shake (EAS Advantage Carb Control), 1 small apple, orange, peach, pear (one that you can tuck in your palm) Martiniquais Yogurt (has 20 grams of carb, 2 ounces of lean protein) or 6 ounce light yogurt 1/3 cup hummus with celery sticks and baby carrots ? Low Carb Light Wrap (1-2 slices lean meat), lettuce, tomato, 1 tsp light Telugu dressing (There are many options which are [...] for Encounter Date Provider Department Center 07/06/2024 [id number], KIRSTEN ENDOLN [facility] Encounter Status:Closed by JESSI ZAVALA on 07/06/24 PROGRESS Observed: 07/06/2024 11:00 AM Status: COMPLETED Source: [facility] ID: [id number] Author: JESSI ZAVALA APRN.PARI MUTUAL TICKET CHECKER Service: ? Author Type: Nurse Practitioner Type: Progress Notes Filed: 07/06/2024 12:36 Note Text: Endocrinology Initial Diabetes Assessment Ashwini Vickers is here for a consultation regarding: DM Type 2 My final recommendations will be communicated back to the requesting physician by way of shared Medical record or letter to requesting physician via US mail. PCP is DO Marie Rodriguez ([facility]) [address] [place] [address] History of Present Illness Ashwini Vickers is a 89 year old male presents today for evaluation of DM Type 1. Here with and son. 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 Per patient, this was done due to [...] (PROBIOTIC-10 ORAL) Take by mouth once daily. qviyhf-vpxrlcdf-kswcmiy (CREON) 24,000-76,000 -120,000 unit cpDR Take 2 capsules by mouth three times daily with meals. and 1 with snacks (8/day) Digestive Enzyme Mixtures lutein-zeaxanthin 25-5 mg cap Take by mouth once daily. Alternative Therapy - Antioxidant Omeprazole Magnesium 20 mg tablet Take 20 mg by mouth. Gastric Acid Secretion Compounding And Finishing Supervisor - Proton Pump Inhibitors (PPIs) PARoxetine (PAXIL) 40 mg tablet Take 40 mg by mouth every morning. Antidepressant - Selective Serotonin Reuptake Inhibitors (SSRIs) tamsulosin (FLOMAX) 0.4 mg Take 0.4 mg by mouth. Prostatic Hypertrophy Agent - [id number] Antagonists Physical Activity: No formal program Diet: [...] ains abnormal data COMPREHENSIVE METABOLIC PANEL Order: [id number] Component Ref Range AND Units 5 mo [...] does not use a race coefficient. Resulting [facility] MAIN LAB Specimen Collected: 01/24/24 6:05 AM Performed by: OpenX Last Resulted: 01/24/24 7:22 AM Received From: [facility] Result Received: 07/06/24 9:37 AM Impression/Recommendations IMPRESSION [...] LDL , TG LIPID PANEL (EXTERNAL) Order: [id number] Component Ref Range AND Units 5 mo ago Cholesterol 150 - 200 mg/dL 97 Low Triglycerides 27 - 150 mg/dL 38 HDL Cholesterol >39 mg/dL 50 VLDL 0 - 30 mg/dL 8 LDL (calc) <130 mg/dL 39 Cholesterol:HDL Ratio 1.0 - 5.0 1.9 Resulting Agency [facility] LAB Specimen Collected: 01/22/24 6:06 AM Performed by: OpenX Last Resulted: 01/22/24 1:58 PM Received From: [facility]Ops Result Received: 07/06/24 9:37 AM -- This [...] which included preparing to see the patient, [id number] patient care, completing clinical documentation, counseling and educating the patient/family/caregiver, ordering medications, tests, or procedures, and communicating results to the patient/family/caregiver. Jessi Zavala APRN.KALANI (Signed electronically to expedite mailing) JEVON Observed: 07/06/2024 12:00 AM Status: COMPLETED Source: [facility] Telephone (ENDOLN) ASHWINI VICKERS ([id number]) 1935 M Date Time Provider Department 07/06/24 [...] for training. I reached out to our production leader and am waiting to hear back, but hopefully can get him set up for training in the next two weeks. Mireya Ny MA 07/07/2024 4:31 PM Signed Called patient. No answer. [facility] to call [phone] to retrieve below message from Jessi Mckinney APRN.CNP 07/13/2024 8:33 AM Signed Please call back patient to see how he is doing since we made adjustments to his regimen. I did reach out to the [employer] dog trainer at [place] and she said she would be reaching out. I want to make sure this gets scheduled and that she was able to reach him. Buffy Arana MA 07/13/2024 4:06 PM Signed Called and spoke with patient He is doing well He stated that he just got scheduled with the dog trainer today will call the office if [...] 5,) crtg Change every 72 hours. - sidmlt-xudpamlm-lmprabe (CREON) 24,000-76,000 -120,000 unit cpDR Take 2 [...] 06/21/2024 2:33 P M Status: F Source: [facility] TYPE CODE TESTS RESULT [...] epeat Test LAB COMM2 Commemt2 WILL NOTIFY DR/PLANT AND EQUIPMENT WORKER COMM3 Commemt3 Cleaned Meter Result Comment: PERFORMED BY : [address] [place] [address] PATHOLOGIST LAB ASST ANDRE PERALTA M.D. Performed By: #### GLULS ### # Point of Care testing , GLUCOSE POCT GLUCOMETERS Collected: 06/21/2024 2:32 P M Status: F Source: [facility] TYPE CODE TESTS RESULT [...] epeat Test LAB COMM2 Commemt2 WILL NOTIFY DR/PLANT AND EQUIPMENT WORKER COMM3 Commemt3 Cleaned Meter Result Comment: PERFORMED BY : [facility] [address] [place] [address] PATHOLOGIST LAB ASST ANDRE PERALTA M.D. Performed By: #### GLULS ### # Point of Care testing , GLUCOSE POCT GLUCOMETERS Collected: 06/21/2024 11:49 AM Status: F Source: [facility] TYPE CODE TESTS RESULT OUT OF RANGE REFERENCE UNITS LAB GLUPOC Glucose Poc Glucometers 375 mg/dL Result Comment: Random Gluco se Reference Range is dependent on time and content of last meal. Glucose of more than 200 mg/dL in a nonstressed, ambulatory subject supports the diagnosis of Diabetes Mellitus. PERFORMED BY: [address] [place] [address] PATHOLOGIST LAB ASST ANDRE PERALTA M.D. Performed By: #### GLULS ### # Point of Care testing , GLUCOSE POCT GLUCOMETERS Collected: 06/21/2024 11:48 AM Status: F Source: [facility] TYPE CODE TESTS RESULT [...] Glu2: Will R epeat Test PERFORMED BY: [facility] [address] [address] PATHOLOGIST LAB ASST ANDRE PERALTA M.D. Performed By: #### GLULS ### # Point of Care testing , GLUCOSE POCT GLUCOMETERS Collected: 06/21/2024 7:53 A M Status: F Source: [facility] TYPE CODE TESTS RESULT OUT OF RANGE REFERENCE UNITS LAB GLUPOC Glucose Poc Glucometers 210 mg/dL Result Comment: Random Gluco se Reference Range is dependent on time and content of last meal. Glucose of more than 200 mg/dL in a nonstressed, ambulatory subject supports the diagnosis of Diabetes Mellitus. PERFORMED BY: [facility] [address] [place] [address] PATHOLOGIST LAB ASST ANDRE PERALTA M.D. Performed By: #### GLULS ### # Point of Care testing , GLUCOSE POCT GLUCOMETERS Collected: 06/21/2024 1:53 A M Status: F Source: [facility] TYPE CODE TESTS RESULT OUT OF RANGE REFERENCE UNITS LAB GLUPOC Glucose Poc Glucometers 332 mg/dL Result Comment: Random Gluco se Reference Range is dependent on time and content of last meal. Glucose of more than 200 mg/dL in a nonstressed, ambulatory subject supports the diagnosis of Diabetes Mellitus. PERFORMED BY: [address] [address] PATHOLOGIST LAB ASST ANDRE PERALTA M.D. Performed By: #### GLULS ### # Point of Care testing , GLUCOSE POCT GLUCOMETERS Collected: 06/20/2024 8:50 P M Status: F Source: [facility] TYPE CODE TESTS RESULT OUT OF RANGE REFERENCE UNITS LAB GLUPOC Glucose Poc Glucometers 134 mg/dL Result Comment: Random Gluco se Reference Range is dependent on time and content of last meal. Glucose of more than 200 mg/dL in a nonstressed, ambulatory subject supports the diagnosis of Diabetes Mellitus. PERFORMED BY: [address] [address] PATHOLOGIST LAB ASST ANDRE PERALTA M.D. Performed By: #### GLULS ### # Point of Care testing , GLUCOSE POCT GLUCOMETERS Collected: 06/20/2024 4:52 P M Status: F Source: [facility] TYPE CODE TESTS RESULT OUT OF RANGE REFERENCE UNITS LAB GLUPOC Glucose Poc Glucometers 65 mg/dL Result Comment: Random Gluco se Reference Range is dependent on time and content of last meal. Glucose of more than 200 mg/dL in a nonstressed, ambulatory subject supports the diagnosis of Diabetes Mellitus. PERFORMED BY: [facility] [address] [place] [place] [address] PATHOLOGIST LAB ASST ANDRE PERALTA M.D. Performed By: #### GLULS ### # Point of Care testing , GLUCOSE POCT GLUCOMETERS Collected: 06/20/2024 12:06 PM Status: F Source: [facility] TYPE CODE TESTS RESULT OUT OF RANGE REFERENCE UNITS LAB GLUPOC Glucose Poc Glucometers 140 mg/dL Result Comment: Random Gluco se Reference Range is dependent on time and content of last meal. Glucose of more than 200 mg/dL in a nonstressed, ambulatory subject supports the diagnosis of Diabetes Mellitus. LAB COMM1 Commemt1 Glu2: Cleaned Meter Result Comment: PERFORMED BY : [place] [address] PATHOLOGIST LAB ASST ANDRE PERALTA M.D. Performed By: #### GLULS ### # Point of Care testing , AEROBIC CULTURE Observed: 06/20/2024 10:18 AM Status: F Source: [facility] Comment deep wound culture o f abdominal [...] RESISTANT TO ALL B-LACTAM DRUGS. PERFORMED BY: [place] [address] PATHOLOGIST LAB ASST ANDRE PERALTA M.D. Performed By: #### AERC #### [address] [address] [facility] GLUCOSE POCT GLUCOMETERS Collected: 06/20/2024 7:47 A M Status: F Source: [facility] TYPE CODE TESTS RESULT OUT OF RANGE REFERENCE UNITS LAB GLUPOC Glucose Poc Glucometers 200 mg/dL Result Comment: Random Gluco se Reference Range is dependent on time and content of last meal. Glucose of more than 200 mg/dL in a nonstressed, ambulatory subject supports the diagnosis of Diabetes Mellitus. LAB COMM1 Commemt1 Glu2: Cleaned Meter Result Comment: PERFORMED BY : [place] [id number] PATHOLOGIST LAB ASST ANDRE PERALTA M.D. Performed By: #### GLULS ### # Point of Care testing , GLUCOSE POCT GLUCOMETERS Collected: 06/20/2024 2:14 A M Status: F Source: [facility] TYPE CODE TESTS RESULT [...] Glu2: Will R epeat Test PERFORMED BY: [address] [address] PATHOLOGIST LAB ASST ANDRE PERALTA M.D. Performed By: #### GLULS ### # Point of Care testing , GLUCOSE POCT GLUCOMETERS Collected: 06/19/2024 8:37 P M Status: F Source: [facility] TYPE CODE TESTS RESULT OUT OF RANGE REFERENCE UNITS LAB GLUPOC Glucose Poc Glucometers 101 mg/dL Result Comment: Random Gluco se Reference Range is dependent on time and content of last meal. Glucose of more than 200 mg/dL in a nonstressed, ambulatory subject supports the diagnosis of Diabetes Mellitus. PERFORMED BY: [address] [address] PATHOLOGIST LAB ASST ANDRE PERALTA M.D. Performed By: #### GLULS ### # Point of Care testing , BASIC METABOLIC PANEL Collected: 06/19/2024 7:28 PM Status: F Source: [facility] TYPE CODE TESTS RESULT [...] 8.6-10.3 mg/dL Result Comment: PERFORMED BY : [place] [address] PATHOLOGIST LAB ASST ANDRE PERALTA M.D. Performed By: #### PT, PTT, SCAN CBC, BMP #### [address] PROTHROMBIN TIME INR Collected: 06/19/2024 7:28 PM S tatus: F Source: [facility] TYPE CODE TESTS RESULT OUT OF RANGE REFERENCE UNITS LAB R PT Prothrombin Time 12.9 Normal 9.0-12.9 s Result Comment: A hematocrit value greater than 55% may lead to inaccurate results in coagulation testing. Patients having hematocrit values >55% require a special collection tube for coagulation studies. Please contact the laboratory at [phone] for redraw instructions. LAB INR INR 1.1 [...] #### PT, PTT, SCAN CBC, BMP #### [facility] [address] [place] [address] [facility] PARTIAL THROMBOPLASTIN TIME Collected: 06/19/2024 7:2 8 PM Status: F Source: [facility] TYPE CODE TESTS RESULT OUT OF RANGE REFERENCE UNITS LAB PTT Partial Thromboplastin Time 29.4 Normal 25.1-36.5 s Result Comment: A hematocrit value greater than 55% may lead to inaccurate results in coagulation testing. Patients having hematocrit values >55% require a special collection tube for coagulation studies. Please contact the laboratory at [phone] for redraw instructions. PERFORMED BY: [facility] [address] [place] [id number] PATHOLOGIST LAB ASST ANDRE PERALTA M.D. Performed By: #### PT, PTT, SCAN CBC, BMP #### [facility] [address] [place] [address] [facility] SCAN AND CBC Collected: 06/19/2024 7:28 PM Status: F Source: [facility] TYPE CODE TESTS RESULT [...] 10*3/ uL Result Comment: PERFORMED BY : [place] [address] PATHOLOGIST LAB ASST ANDRE PERALTA M.D. LAB HYPO Hypochromasia Moderate LAB POIK Poikilocytosis Moderate LAB ANISO Anisocytosis Moderate LAB MICR Microcytosis Slight LAB MACR Macrocytosis Slight LAB TAVIA Schistocytes Slight LAB TRGT Target Cells Slight LAB OVAL Ovalocytes Slight LAB CREN Crenated RBC Slight LAB ACAN Acanthocytes Moderate LAB PLT EST Platelet Estimate Normal Normal LAB PLTM Platelet Morphology Normal Normal Result Comment: PERFORMED BY : [place] [address] PATHOLOGIST LAB ASST ANDRE PERALTA M.D. Performed By: #### PT, PTT, SCAN CBC, BMP #### [facility] [address] [place] [address] [place] A1C WITH ESTIMATED AVERAGE GLU Collected: 06/19/2024 7:28 PM Status: F Source: [facility] Order Comment: ADD ON PER AB BY - PHLEB TYPE CODE TESTS RESULT OUT OF RANGE REFERENCE UNITS LAB .A1C Hemoglobin A1C 10.5 High 4.3-5.6 % Result Comment: Increased ri sk for diabetes: 5.7 - 6.4 diabetes: >6.4 glycemic control for adults with diabetes: <7.0 LAB eAG Estimated Average Glucose 255 mg/dL Result Comment: PERFORMED BY : [place] [id number] PATHOLOGIST LAB ASST ANDRE PERALTA M.D. Performed By: #### A1C [facility] odalys Cutler #### [place] [id number] [place] GLUCOSE POCT GLUCOMETERS Collected: 06/18/2024 11:51 AM Status: F Source: [facility] TYPE CODE TESTS RESULT OUT OF RANGE REFERENCE UNITS LAB GLUPOC Glucose Poc Glucometers 386 mg/dL Result Comment: Random Gluco se Reference Range is dependent on time and content of last meal. Glucose of more than 200 mg/dL in a nonstressed, ambulatory subject supports the diagnosis of Diabetes Mellitus. PERFORMED BY: [place] [address] PATHOLOGIST LAB ASST ANDRE PERALTA M.D. Performed By: #### GLULS ### # Point of Care testing , GLUCOSE POCT GLUCOMETERS Collected: 06/18/2024 11:49 AM Status: F Source: [facility] TYPE CODE TESTS RESULT [...] NOTIFY DR/RN Result Comment: PERFORMED BY : [place] [id number] PATHOLOGIST LAB ASST ANDRE PERALTA M.D. Performed By: #### GLULS ### # Point of Care testing , GLUCOSE POCT GLUCOMETERS Collected: 06/18/2024 11:48 AM Status: F Source: [facility] TYPE CODE TESTS RESULT [...] Glu2: Will R epeat Test PERFORMED BY: [address] [address] PATHOLOGIST LAB ASST ANDRE PERALTA M.D. Performed By: #### GLULS ### # Point of Care testing , GLUCOSE POCT GLUCOMETERS Collected: 06/18/2024 11:46 AM Status: F Source: [facility] TYPE CODE TESTS RESULT OUT OF RANGE REFERENCE UNITS LAB GLUPOC Glucose Poc Glucometers 393 mg/dL Result Comment: Random Gluco se Reference Range is dependent on time and content of last meal. Glucose of more than 200 mg/dL in a nonstressed, ambulatory subject supports the diagnosis of Diabetes Mellitus. PERFORMED BY: [address] [address] PATHOLOGIST LAB ASST ANDRE PERALTA M.D. Performed By: #### GLULS ### # Point of Care testing , GLUCOSE POCT GLUCOMETERS Collected: 06/18/2024 6:22 A M Status: F Source: [facility] TYPE CODE TESTS RESULT OUT OF RANGE REFERENCE UNITS LAB GLUPOC Glucose Poc Glucometers 85 mg/dL Result Comment: Random Gluco se Reference Range is dependent on time and content of last meal. Glucose of more than 200 mg/dL in a nonstressed, ambulatory subject supports the diagnosis of Diabetes Mellitus. PERFORMED BY: [address] [address] PATHOLOGIST LAB ASST ANDRE PERALTA M.D. Performed By: #### GLULS ### # Point of Care testing , COMPREHENSIVE METABOLIC PANEL Collected: 06/18/2024 6 :16 AM Status: F Source: [facility] TYPE CODE TESTS RESULT [...] Pharmacy 50.22 Result Comment: PERFORMED BY : [place] [address] PATHOLOGIST LAB ASST ANDRE PERALTA M.D. Performed By: #### DIFF CBC, CMP #### [address] DIFF AND CBC Collected: 06/18/2024 6:16 AM Status: F Source: [facility] TYPE CODE TESTS RESULT [...] Platelets Slight Result Comment: PERFORMED BY : [place] [address] PATHOLOGIST LAB ASST ANDRE PERALTA M.D. Performed By: #### DIFF CBC, CMP #### [facility] [address] [place] [address] [place] GLUCOSE POCT GLUCOMETERS Collected: 06/17/2024 8:54 P M Status: F Source: [facility] TYPE CODE TESTS RESULT OUT OF RANGE REFERENCE UNITS LAB GLUPOC Glucose Poc Glucometers 229 mg/dL Result Comment: Random Gluco se Reference Range is dependent on time and content of last meal. Glucose of more than 200 mg/dL in a nonstressed, ambulatory subject supports the diagnosis of Diabetes Mellitus. LAB COMM1 Commemt1 Glu2: Cleaned Meter Result Comment: PERFORMED BY : [place] [address] PATHOLOGIST LAB ASST ANDRE PERALTA M.D. Performed By: #### GLULS ### # Point of Care testing , GLUCOSE POCT GLUCOMETERS Collected: 06/17/2024 4:19 P M Status: F Source: [facility] TYPE CODE TESTS RESULT OUT OF RANGE REFERENCE UNITS LAB GLUPOC Glucose Poc Glucometers 250 mg/dL Result Comment: Random Gluco se Reference Range is dependent on time and content of last meal. Glucose of more than 200 mg/dL in a nonstressed, ambulatory subject supports the diagnosis of Diabetes Mellitus. LAB COMM1 Commemt1 Glu2: Cleaned Meter Result Comment: PERFORMED BY : [address] [place] [address] PATHOLOGIST LAB ASST ANDRE PERALTA M.D. Performed By: #### GLULS ### # Point of Care testing , GLUCOSE POCT GLUCOMETERS Collected: 06/17/2024 11:16 AM Status: F Source: [facility] TYPE CODE TESTS RESULT OUT OF RANGE REFERENCE UNITS LAB GLUPOC Glucose Poc Glucometers 352 mg/dL Result Comment: Random Gluco se Reference Range is dependent on time and content of last meal. Glucose of more than 200 mg/dL in a nonstressed, ambulatory subject supports the diagnosis of Diabetes Mellitus. PERFORMED BY: [address] [address] PATHOLOGIST LAB ASST ANDRE PERALTA M.D. Performed By: #### GLULS ### # Point of Care testing , GLUCOSE POCT GLUCOMETERS Collected: 06/17/2024 6:29 A M Status: F Source: [facility] TYPE CODE TESTS RESULT OUT OF RANGE REFERENCE UNITS LAB GLUPOC Glucose Poc Glucometers 82 mg/dL Result Comment: Random Gluco se Reference Range is dependent on time and content of last meal. Glucose of more than 200 mg/dL in a nonstressed, ambulatory subject supports the diagnosis of Diabetes Mellitus. PERFORMED BY: [address] [address] PATHOLOGIST LAB ASST ANDRE PERALTA M.D. Performed By: #### GLULS ### # Point of Care testing , COMPREHENSIVE METABOLIC PANEL Collected: 06/17/2024 5 :47 AM Status: F Source: [facility] TYPE CODE TESTS RESULT [...] #### CMP, SCAN CBC, PHOS, MG #### [facility] [address] PHOSPHORUS Collected: 4 5:47 AM Status: F Source: [facility] TYPE CODE TESTS RESULT OUT OF RANGE REFERENCE UNITS LAB PHOS Phosphorus 3.7 Normal 2.5-4.5 mg/dL Performed By: #### CMP, SCAN CBC, PHOS, MG #### [facility] [address] MAGNESIUM Collected: 4 5:47 AM Status: F Source: [facility] TYPE CODE TESTS RESULT OUT OF RANGE REFERENCE UNITS LAB MG Magnesium 1.7 Low 1.9-2.7 mg/dL Result Comment: PERFORMED BY : [place] [address] PATHOLOGIST LAB ASST ANDRE PERALTA M.D. Performed By: #### CMP, SCAN CBC, PHOS, MG #### [facility] [address] [place] [address] [facility] SCAN AND CBC Collected: 06/17/2024 5:47 AM Status: F Source: [facility] TYPE CODE TESTS RESULT [...] Anisocytosis Marked LAB MICR Microcytosis Slight LAB TAVIA Schistocytes Moderate LAB TRGT Target Cells Moderate LAB CREN Crenated RBC Slight LAB ACAN Acanthocytes Moderate LAB PLT EST Platelet Estimate Normal Normal LAB LGPLT Large Platelets Slight Result Comment: PERFORMED BY : [place] [address] PATHOLOGIST LAB ASST ANDRE PERALTA M.D. Performed By: #### CMP, SCAN CBC, PHOS, MG #### [facility] [address] [place] [address] BLOOD CULTURE Observed: 06/16/2024 8:37 PM Status: F Source: [facility] NO GROWTH 5 DAYS PERFORMED BY: [place] [address] PATHOLOGIST LAB ASST ANDRE PERALTA M.D. Performed By: #### JESSICA MERRILL CTIC #### [address] BLOOD CULTURE Observed: 06/16/2024 8:32 PM Status: F Source: [facility] NO GROWTH 5 DAYS PERFORMED BY: [place] [address] PATHOLOGIST LAB ASST ANDRE PERALTA M.D. Performed By: #### JESSICA MERRILL CTIC #### [address] GLUCOSE POCT GLUCOMETERS Collected: 06/16/2024 8:26 P M Status: F Source: [facility] TYPE CODE TESTS RESULT OUT OF RANGE REFERENCE UNITS LAB GLUPOC Glucose Poc Glucometers 385 mg/dL Result Comment: Random Gluco se Reference Range is dependent on time and content of last meal. Glucose of more than 200 mg/dL in a nonstressed, ambulatory subject supports the diagnosis of Diabetes Mellitus. PERFORMED BY: [place] [address] PATHOLOGIST LAB ASST ANDRE PERALTA M.D. Performed By: #### GLULS ### # Point of Care testing , GLUCOSE POCT GLUCOMETERS Collected: 06/16/2024 8:24 P M Status: F Source: [facility] TYPE CODE TESTS RESULT [...] NOTIFY DR/RN Result Comment: PERFORMED BY : [place] [address] PATHOLOGIST LAB ASST ANDRE PERALTA M.D. Performed By: #### GLULS ### # Point of Care testing , LACTIC ACID Collected: 5:11 PM Status: F Source: [facility] TYPE CODE TESTS RESULT OUT OF RANGE REFERENCE UNITS LAB LACTIC Lactic Acid 1.0 0.5-2.2 mmol/L Result Comment: PERFORMED BY : [place] [address] PATHOLOGIST LAB ASST ANDRE PERALTA M.D. Performed By: #### CUBLDJESSICA CTIC #### [address] ABDOMEN W CON Observed: 06/16/2024 3:35 PM Status: COMPLETED Source: [facility] [place] [address] CT Scan Report Signed Patient: Ashwini Vickers MR#: [id number] 353 : 1935 Acct:[id number] Age/Sex: 89 / M ADM Date: 06/16/24 Loc: ER Room: Type: [facility] ER Attending Dr: Copies to: [...] Sheldon Johnson M.D.06/16/2024 3:48 PM Dictation Location: [facility] Transcribed By: [facility] 06/16/24 1548 Dictated By: Sheldon Johnson DO 06/16/24 1535 Signed By: <Electronically signed by Sheldon Johnson DO in OV> 06/16/24 1548 BLOOD CULTURE Observed: 06/16/2024 2:15 PM Status: F Source: [facility] NO GROWTH 5 DAYS PERFORMED BY: [place] [address] PATHOLOGIST LAB ASST ANDRE PERALTA M.D. Performed By: #### CUBLD ### # [address] ECG 12 LEAD ECG Observed: 06/16/2024 2:13 PM Status: COMPLETED Source: [facility] Main [place] [address] [place] [address] Electrocardiograph Report Signed Patient: Ashwini Vickers MR#: [id number] 353 : 1935 Acct:[id number] Age/Sex: 89 / M ADM Date: 06/16/24 Loc: Room: [address] [place] [address] Type: ADM IN Attending Dr: Jose Alfredo [...] Anterior leads Confirmed by ÁLVARO KONG DO ([id number]) on 06/16/2024 7:24:37 PM Referred By: Electronically Signed By: ÁLVARO KONG DO Transcribed By: MUS Signed By Álvaro Kong DO 06/16 BLOOD CULTURE Observed: 06/16/2024 2:00 PM Status: F Source: [facility] NO GROWTH 5 DAYS PERFORMED BY: [place] [address] PATHOLOGIST LAB ASST ANDRE PERALTA M.D. Performed By: #### CUBLD ### # [address] COMPREHENSIVE METABOLIC PANEL Collected: 06/16/2024 2 :00 PM Status: F Source: [facility] TYPE CODE TESTS RESULT [...] Pharmacy 50.08 Result Comment: PERFORMED BY : [place] [address] PATHOLOGIST LAB ASST ANDRE PERALTA M.D. Performed By: #### CMP, SCAN CBC #### [facility] [address] [place] [address] SCAN AND CBC Collected: 06/16/2024 2:00 PM Status: F Source: [facility] TYPE CODE TESTS RESULT [...] 0.0-0.2 10*3/uL Result Comment: PERFORMED BY : [facility] [address] [place] [address] PATHOLOGIST LAB ASST ANDRE PERALTA M.D. LAB POLY Polychromasia Moderate [...] Normal Normal Result Comment: PERFORMED BY : [place] [address] PATHOLOGIST LAB ASST ANDRE PERALTA M.D. Performed By: #### CMP, SCAN CBC #### [place] [id number] [facility] SUPERFICIAL WOUND CULTURE Observed: 12/2023 1:55 PM Status: F Source: [facility] ORGANISM: Staphylococcus aur eus (O:STAAUR) Quantity of [...] RESISTANT TO ALL B-LACTAM DRUGS. PERFORMED BY: [place] [address] PATHOLOGIST LAB ASST ANDRE PERALTA M.D. Performed By: #### CUSUP ### # [facility] [address] [place], [place] [id number] [facility] XR CHEST 2V* Observed: 05/25/2024 8:10 AM Status: COMPLETED Source: [facility] Main [place] [id number] XRay Report Signed Patient: Ashwini Vickers MR#: [id number] 353 : 1935 Acct:[id number] Age/Sex: 89 / M ADM Date: 05/24/24 Loc: Room: [address] [place] [address] Type: ADM IN Attending Dr: Abdulaziz Root [...] Sofia Rosales M.D.05/25/2024 8:13 AM Dictation Location: [place] [address] Transcribed By: [facility] 05/25/[address] Dictated By: Sofia Rosales MD 05/25/24 0810 Signed By: <Electronically signed by MD Sofia Rosales in OV> 05/25/24 0813 GLUCOSE POCT GLUCOMETERS Collected: 05/25/2024 7:18 A M Status: F Source: [facility] TYPE CODE TESTS RESULT OUT OF RANGE REFERENCE UNITS LAB GLUPOC Glucose Poc Glucometers 87 mg/dL Result Comment: Random Gluco se Reference Range is dependent on time and content of last meal. Glucose of more than 200 mg/dL in a nonstressed, ambulatory subject supports the diagnosis of Diabetes Mellitus. PERFORMED BY: [facility] [address] [place] [address] PATHOLOGIST LAB ASST ANDRE PERALTA M.D. Performed By: #### GLULS ### # Point of Care testing , BASIC METABOLIC PANEL Collected: 05/25/2024 4:44 AM Status: F Source: [facility] TYPE CODE TESTS RESULT [...] Pharmacy 60.91 Result Comment: PERFORMED BY : [place] [address] PATHOLOGIST LAB ASST ANDRE PERALTA M.D. Performed By: #### BMP #### [address] GLUCOSE POCT GLUCOMETERS Collected: 05/24/2024 8:20 P M Status: F Source: [facility] TYPE CODE TESTS RESULT OUT OF RANGE REFERENCE UNITS LAB GLUPOC Glucose Poc Glucometers 68 mg/dL Result Comment: Random Gluco se Reference Range is dependent on time and content of last meal. Glucose of more than 200 mg/dL in a nonstressed, ambulatory subject supports the diagnosis of Diabetes Mellitus. PERFORMED BY: [place] [address] PATHOLOGIST LAB ASST ANDRE PERALTA M.D. Performed By: #### GLULS ### # Point of Care testing , GLUCOSE POCT GLUCOMETERS Collected: 05/24/2024 7:31 P M Status: F Source: [facility] TYPE CODE TESTS RESULT OUT OF RANGE REFERENCE UNITS LAB GLUPOC Glucose Poc Glucometers 87 mg/dL Result Comment: Random Gluco se Reference Range is dependent on time and content of last meal. Glucose of more than 200 mg/dL in a nonstressed, ambulatory subject supports the diagnosis of Diabetes Mellitus. PERFORMED BY: [address] [address] PATHOLOGIST LAB ASST ANDRE PERALTA M.D. Performed By: #### GLULS ### # Point of Care testing , BASIC METABOLIC PANEL Collected: 05/24/2024 4:40 PM Status: F Source: [facility] TYPE CODE TESTS RESULT [...] Pharmacy 61.04 Result Comment: PERFORMED BY : [place] [id number] PATHOLOGIST LAB ASST ANDRE PERALTA M.D. Performed By: #### BMP #### [address] [address] [facility] COAGULATION PROFILE Collected: 05/24/2024 4:[address] atus: F Source: [facility] TYPE CODE TESTS RESULT OUT OF RANGE REFERENCE UNITS LAB R PT Prothrombin Time 12.9 Normal 9.0-12.9 s Result Comment: A hematocrit value greater than 55% may lead to inaccurate results in coagulation testing. Patients having hematocrit values >55% require a special collection tube for coagulation studies. Please contact the laboratory at [phone] for redraw instructions. LAB INR INR 1.1 [...] coagulation studies. Please contact the laboratory at [phone] for redraw instructions. PERFORMED BY: [place] [address] PATHOLOGIST LAB ASST ANDRE PERALTA M.D. Performed By: #### PP #### [address] GLUCOSE POCT GLUCOMETERS Collected: 05/24/2024 4:36 P M Status: F Source: [facility] TYPE CODE TESTS RESULT OUT OF RANGE REFERENCE UNITS LAB GLUPOC Glucose Poc Glucometers 100 mg/dL Result Comment: Random Gluco se Reference Range is dependent on time and content of last meal. Glucose of more than 200 mg/dL in a nonstressed, ambulatory subject supports the diagnosis of Diabetes Mellitus. PERFORMED BY: [place] [address] PATHOLOGIST LAB ASST ANDRE PERALTA M.D. Performed By: #### GLULS ### # Point of Care testing , GLUCOSE POCT GLUCOMETERS Collected: 05/24/2024 4:15 P M Status: F Source: [facility] TYPE CODE TESTS RESULT [...] Comment: Glu2: Result Not Confirmed PERFORMED BY: [place] [address] PATHOLOGIST LAB ASST ANDRE PERALTA M.D. Performed By: #### GLULS ### # Point of Care testing , BASIC METABOLIC PANEL Collected: 05/16/2024 1:15 PM Status: F Source: [facility] TYPE CODE TESTS RESULT [...] 8.6-10.3 mg/dL Result Comment: PERFORMED BY : [place] [address] PATHOLOGIST LAB ASST AIRAM MAST M.D. Performed By: #### BMP, DIFF CBC #### [address] DIFF AND CBC Collected: 05/16/2024 1:15 PM Status: F Source: [facility] TYPE CODE TESTS RESULT [...] 6.6-10.1 fL Result Comment: PERFORMED BY : [place] [address] PATHOLOGIST LAB ASST AIRAM MAST M.D. LAB SEG Segmented Neutrophils [...] Normal Normal Result Comment: PERFORMED BY : [place] [address] PATHOLOGIST LAB ASST AIRAM MAST M.D. Performed By: #### BMP, DIFF CBC #### [facility] [address] [place], [place] [id number] [facility] ECG 12 LEAD ECG Observed: 05/16/2024 12:25 PM Status: COMPLETED Source: [facility] Main [place] [address] [place] [address] Electrocardiograph Report Signed Patient: Ashwini Vickers MR#: [id number] : 1935 Acct:[id number] Age/Sex: 89 / M ADM Date: 05/16/24 Loc: PS Room: Type: [facility] CLI Attending Dr: Abdulaziz Root MD [...] changes have occurred Confirmed by CONRAD OGLESBY [facility], [place] (137) on 05/16/2024 2:20:20 PM Referred By: Electronically Signed By: HARSH MARTINES MD [facility] Transcribed By: MUS Signed By Harsh Martines MD, [facility] 05/16/24 1420 36 Observed: 05/04/2024 9:39 AM Status: COMPLETED Source: [facility] Dr. Chirag Merritt's recommendation for an EGD [...] Observed: 04/26/2024 10:25 AM Status: COMPLETED Source: [facility] Millie from Dr. Marie melendez's office (Internal Medicine) called to make sure that a message had been received to Dr. Beard regarding this patient and concerns Dr. Castro has regarding the patient having an EGD to confirm resolution of H. Pylori. This blog writer could not find any message in chart or in internet media planner, so this message was created. The following [...] A note will be sent to the experimental rocketsled mechanic to discuss the possibility of using a stool study instead of a biopsy to avoid disturbing the scarred area. Please advise and respond to Dr. Castro through this telephone call note or via a letter, as to what Dr. Beard's recommendation is regarding the above inquiry. Thank you. TELEPHONE Observed: 04/26/2024 12:00 AM Status: COMPLETED Source: [facility] [id number] Ashwini Vickers [birth year] M Date Provider Department Center 04/26/2024 [id number], [facility] No family history on file ALLERGIES DATE TYPE / CODE NAME / CODE REACTION SEVERITY SOURCE 10/13/2024 Drug Allergy/37414244 2(SNOMED CT) No Known Allergies/[id number] (RXNORM) Unknown [facility] Drug Class/356251741( SNOMED CT) NO KNOWN ALLERGIES [facility] ENCOUNTERS ADMIT/DISCHARGE ACCOUNT NUMBER ADMITTING ENCOUNTER CLASS LOCATION SOURCE 04/09/2025/04/09/20 [id number] Ambulatory [facility] HospitalBuil ding:LNEC [facility] 04/09/2025 [id number] [facility] 03/02/2025/03/02/20 [id number] [facility] [address] HospitalBuildi ng:[facility] 01/16/2025/01/17/20 25 [id number] Ambulatory Building:NOM SSHCT [facility] Medical [facility] 01/02/2025/01/03/20 25 [id number] Ambulatory Building:NOM SSWSIMG [facility] Medical [facility] 01/02/2025/01/03/20 25 [id number] Ambulatory Building:NOM [facility] Medical Specialists [facility] 11/30/2024/12/01/19 [id number] HospitalBuildi ng:[facility] 10/26/2024/10/27/19 25 [id number] Ambulatory [facility] HospitalBuil ding:LNEC [facility] 09/25/2024/09/26/19 25 [id number] Ambulatory [facility] HospitalBuil ding:LNLB [facility] 09/25/2024/09/26/19 25 [id number] Ambulatory [facility] HospitalBuil ding:LNEC [facility] 09/04/2024/09/04/19 25 [id number] Ambulatory [facility] HospitalBuil ding:LIANNA [facility] 08/30/2024/08/30/19 25 [id number] Ambulatory Building:NOM [facility] Medical [facility] 08/29/2024/08/29/19 [id number] HospitalBuildi ng:[facility] 07/25/2024/07/25/19 25 [id number] [facility]20/[facility]24/07/20/19 25 [id number] Ambulatory Building:NOM [facility] Medical [facility] 07/16/2024/07/17/[id number] HospitalBuildi nNRoom: [id number]: 1 [facility] 07/13/2024/07/13/19 25 [id number] Ambulatory Building:NOM [facility] Medical Specialists [facility] 07/06/2024/07/06/20 24 [id number] Ambulatory [facility] HospitalBuil ding:LNEC [facility] 07/03/2024/07/03/20 24 [id number] Ambulatory Building:NOM [facility] Medical Specialists [facility] 06/19/2024/06/21/20 24 [id number] Sushant Cordon Ambulatory [facility] nNRoom: [id number]: 1 [facility] 06/19/2024/06/19/20 24 [id number] Ambulatory Building:NOM [facility] Specialists [facility] 06/16/2024/06/18/20 24 [id number] Jose Alfredo Brantley Inpatient Encounter [facility] nTRoom: [id number]: 1 [facility] 05/30/2024/05/30/20 24 [id number] Ambulatory Building:NOM [facility] Medical Specialists [facility] 05/24/2024/05/25/20 24 [id number] Abdulaziz Root Inpatient Encounter [facility] nPRoom: [id number]: 1 [facility] 05/16/2024/05/16/20 24 [id number] Almchris Soufian Ambulatory [facility] ng:[facility] 04/26/2024/04/26/20 24 [id number] Ivett Soufian Ambulatory [facility] ng:[facility] 04/24/2024/04/24/20 24 [id number] Ambulatory Building:NOM [facility] Medical Specialists [facility] 04/17/2024/04/17/20 24 [id number] Ambulatory Building:NOM [facility] Medical [facility] PAYERS ENCOUNTER GUARANTOR PAYER SUBSCRIBER SOURCE 04/09/2025 Primary Insurance:MEDICARE A AND BPolicy Number: [id number] Date:3800-05-23Odzf Name:Jaydon ASHWINI HENNESSY: [id number] [place] [address] [facility] 04/09/2025 Primary Insurance:MEDICARE A AND BPolicy Number: [id number] Date:8769-01-83Hwtj Name:Jaydon HENNESSY: [id number] [place] [address] [facility] 03/02/2025 Ashwini Westfall [id number] [place] [address]Fkf: (HP) Primary Insurance:MedicarePol icy Number: [id number] Date:2024-12-01 Ashwini Westfall NabilernaDOB: [id number] [address] [place] [address]Zbc: (HP) [facility] 03/02/2025 Secondary Insurance:Vietnamese Aircare InsuranPolicy Number: [id number] Date:0031-10-01JS[address] [address]SG: Ashwini Westfall JoannanaB: [id number] [address] [facility] [place] [address]Ntf: (HP) [facility] 03/02/2025 Tertiary Insurance:Self PayPolicy Number: Effective Date:2024-12-01 [facility]/16/2025 ASHWINI Westfall JOANNANADOB: [place] [address]Sfc: (HP) Primary Insurance:MEDICAREPol icy Number: [id number] Date:1302-84-53Qnca Name:Medicare ASHWINI Westfall PHILLB: [id number] [place] [address] [facility] Medical Specialists EP[facility] 01/16/2025 Secondary Insurance:BHUTANESE Medstory LIFE INS CO OF [place] Number: [id number] Date:2022-07-12 ASHWINI Westfall JOANNANAB: [id number] [facility] [place] [address] [facility] 01/02/2025 ASHWINI Westfall NABILERNADOB: [place] [address]Fun: (HP) Primary Insurance:MEDICAREPol icy Number: [id number] Date:3521-05-65Buti Name:Medicare ASHWINI Westfall NABILERNADOB: [id number] [facility]IREEN[facility] [phone] [facility] EP[facility] 01/02/2025 Secondary Insurance:BHUTANESE DJZ INS [facility] GRAPEVINEPolicy Number: [id number] Date:2022-07-12 ASHWINI Westfall RANCHODOB: [id number] [facility] [phone] [facility] EP[facility] 01/02/2025 ASHWINI Westfall NABILERNADOB: [facility] [place] [address]Iaz: (HP) Primary Insurance:MEDICAREPol icy Number: [id number] Date:7301-22-14Cokw Name:Medicare ASHWINI Westfall RANCHODOB: [id number] [place] [address] [facility] 01/02/2025 Secondary Insurance:BHUTANESE DJZ INS [facility] – GRAPEVINEPolicy Number: [id number] Date:2022-07-12 ASHWINI Westfall PHILLB: [id number] [facility] [place] [phone] [facility] EP[facility] 11/30/2024 Ashwini Westfall [id number] [place] [address]Ztx: (HP) Primary Insurance:MedicarePol icy Number: [id number] Date:2024-08-31 Ashwini Westfall NabilernaDOB: [id number] [place] [address]Bqk: (HP) [facility] 11/30/2024 Secondary Insurance:[employer] InsuranPolicy Number: [id number] Date:6285-12-36[address] [place] [address]QH: Ashwini Hennessy: [id number] [place] [address]Was: (HP) [facility] 11/30/2024 Tertiary Insurance:Self PayPolicy Number: Effective Date:2024-08-31 NOT GIVENUNK [facility] 10/26/2024 Primary Insurance:MEDICARE A AND BPolicy Number: [id number] Date:0537-05-86Bxih Name:Jaydon POLLOCKB: [id number] [place] [address] [facility] 09/25/2024 Primary Insurance:MEDICARE A AND BPolicy Number: [id number] Date:7246-95-11Sqvr Name:Jaydon POLLOCKB: [id number] [place] [address] [facility] 09/25/2024 Primary Insurance:MEDICARE A AND BPolicy Number: [id number] Date:4656-98-13Gibk Name:Jaydon POLLOCKB: [id number] [place] [address] [facility] 09/04/2024 Primary Insurance:MEDICARE A AND BPolicy Number: [id number] Date:2488-08-10Vdff Name:Jaydon POLLOCKB: [id number] [place] [address] [facility] 08/30/2024 ASHWINI Westfall NABILMARCIESAIMAB: [id number] [place] [address]Aew: (HP) Primary Insurance:MEDICAREPol icy Number: [id number] Date:5685-93-35Rwrb Name:Medicare SAMUEL J NABILISAAKDOB: [id number] [place] [address] [facility] Medical [facility] 08/30/2024 Secondary Insurance:[place]UT[place] DJZ INS [place]: [id number] Date:2022-07-12 ASHWINI Westfall PHILLB: [id number] [place] [address] [facility] Medical Specialists [facility] 08/29/2024 Ashwini Westfall [id number] [place] [address]Dre: (HP) Primary Insurance:MedicarePol icy Number: [id number] Date:2024-06-02 Ashwini Westfall PhillB: [id number] [place] [address]Qnd: (HP) [facility] 08/29/2024 Secondary Insurance:Vietnamese National Life InsuranPolicy Number: [id number] Date:8214-58-17CB[address] [address]UI: Ashwini Westfall PhillB: [id number] [place] [address]Dht: (HP) [facility] 08/29/2024 Tertiary Insurance:Self PayPolicy Number: Effective Date:2024-06-02 [facility] 07/25/2024 Primary Insurance:MEDICARE A AND BPolicy Number: [id number] Date:9272-24-55Iamm Name:Jaydon HENNESSY: [id number] [place] [address] [facility] 07/20/2024 ASHWINI Westfall PHILLB: [id number] [place] [address]Hrc: () Primary Insurance:MEDICAREPol icy Number: [id number] Date:7929-96-94Ioow Name:Medicare ASHWINI Westfall PHILLB: [id number] [place] [address] [facility] Medical [facility] 07/20/2024 Secondary Insurance:BHUTANESE [employer] LIFE INS CO OF [place]Policy Number: [id number] Date:2022-07-12 ASHWINI Westfall PHILLB: [id number] [place] [address] [facility] Medical Specialists [facility] 07/16/2024 Ashwini Westfall [id number] [place] [address]Duu: (HP) Primary Insurance:MedicarePol icy Number: [id number] Date:2024-07-16 Ashwini Westfall PhillB: [id number] [address] [facility] [place] [address]Ajc: (HP) [facility] 07/16/2024 Secondary Insurance:Vietnamese Aircare InsuranPolicy Number: [id number] Date:5364-53-31ZX[address] [address]BM: Ashwini Westfall PhillB: [id number] [place] [address]Phj: () [facility] 07/16/2024 Tertiary Insurance:Self PayPolicy Number: Effective Date:2024-07-16 [facility] 07/13/2024 ASHWINI Khoi POLLOCKB: [place] [address]Znu: (HP) Primary Insurance:MEDICAREPol icy Number: [id number] Date:8056-87-41Oypo Name:Medicare ASHWINI Westfall LATESHA: [id number] [place] [address] [facility] Medical Specialists [facility] 07/13/2024 Secondary Insurance:BHUTANESE DJZ INS [place] OF [place]Policy Number: [id number] Date:2022-07-12 ASHWINI Khoi POLLOCKB: [id number] [place] [address] [facility] 07/06/2024 Primary Insurance:MEDICARE A AND BPolicy Number: [id number] Date:5364-58-13Adqz Name:Jaydon POLLOCKB: [id number] [place] [address] [facility] 07/03/2024 ASHWINI Westfall PHILLB: [place] [address]Bas: (HP) Primary Insurance:MEDICAREPol icy Number: [id number] Date:7222-07-62Kcgr Name:Medicare SAMUEL J SBERNAB: [id number] [place] [address] [facility] 07/03/2024 Secondary Insurance:BHUTANESE DJZ INS [place] Number: [id number] Date:2022-07-12 ASHWINI Westfall PHILLB: [id number] [place] [address] [facility] 06/19/2024 Ashwini Westfall [id number] [place] [address]Peg: (HP) Primary Insurance:MedicarePol icy Number: [id number] Date:2024-06-19 Ashwini Westfall PhillB: [id number] [place] [address]Mva: (HP) [facility] 06/19/2024 Secondary Insurance:[employer] InsuranPolicy Number: [id number] Date:1773-11-97[address]DegdlyoktuzSHMUEL Sanchez [address]VV: Ashwini Westfall RanchoDOB: 0237-24-80AZP685 [place] [address]Eur: (HP) [facility] 06/19/2024 Tertiary Insurance:Self PayPolicy Number: Effective Date:2024-06-19 NOT GIVENUNK [facility] 06/19/2024 ASHWINI Westfall PHILLB: [place] [address]Cfv: (HP) Primary Insurance:MEDICAREPol icy Number: [id number] Date:7553-70-12Vtxd Name:Medicare ASHWINI Westfall JOANNANADOB: [id number] [facility] [place] [address] [facility] 06/19/2024 Secondary Insurance:BHUTANESE [employer] LIFE INS CO [place]Policy Number: [id number] Date:2022-07-12 ASHWINI Westfall PHILLB: [id number] [facility] [place] [address] [facility] 06/16/2024 Ashwini Westfall [id number] [place] [address]Zcs: (HP) Primary Insurance:MedicarePol icy Number: [id number] Date:2024-06-16 Ashwini Westfall PhillB: [id number] [place] [address]Yld: (HP) [facility] 06/16/2024 Secondary Insurance:Vietnamese [employer] Life InsuranPolicy Number: [id number] Date:0742-82-39FC[address] [address]NP: Ashwini Westfall PhillB: [id number] [place] [address]Tel: (HP) [facility] 06/16/2024 Tertiary Insurance:Self PayPolicy Number: Effective Date:2024-06-16 [facility] 05/30/2024 ASHWINI Westfall SBERNADOB: [id number] [place] [address]Tkn: (HP) Primary Insurance:MEDICAREPol icy Number: [id number] Date:2105-42-16Ucxg Name:Medicare SAMUEL J SBERNADOB: [id number] [place] [address] [facility] 05/30/2024 Secondary Insurance:BHUTANESE [employer] LIFE INS [place]Policy Number: [id number] Date:2022-07-12 ASHWINI Westfall NABILERNADOB: [id number] [place] [address] [facility] 05/24/2024 Ashwini Vickers[address] [place] [address]Wad: (HP) Primary Insurance:MedicarePol icy Number: [id number] Date:2024-05-15 Ashwini FerrerernaDOB: 5398-67-92ZOC870 [place] [address]Qbs: (HP) [facility] 05/24/2024 Secondary Insurance:[employer] InsuranPolicy Number: [id number] Date:7240-91-31CC[address] [address]OZ: Ashwini MarshallnaDOB: 2504-47-28JOX455 [place] [address]Eym: (HP) [facility] 05/24/2024 Tertiary Insurance:Self PayPolicy Number: Effective Date:2024-05-15 [facility] 05/16/2024 Ashwini Marshallna7[address] [place] [address]Pvf: (HP) Primary Insurance:MedicarePol icy Number: [id number] Date:2024-05-15 Ashwini Westfall NabilernaDOB: 1422-45-82BGX492 [place] [address]Huk: () [facility] 05/16/2024 Secondary Insurance:[employer] InsuranPolicy Number: [id number] Date:9723-82-99MC [address] [place] [address]EW: Ashwini Westfall NabilernaDOB: 6742-18-21APW250 [place] [address]Vlf: () [facility] 05/16/2024 Tertiary Insurance:Self PayPolicy Number: Effective Date:2024-05-15 [facility] 04/26/2024 Ashwini Westfall [id number] [place] [address]Weh: () Primary Insurance:MedicarePol icy Number: [id number] Date:2024-03-27 Ashwini Westfall NbailernaDOB: 9936-50-09JFG393 [place] [address]Mjz: () [facility] 04/26/2024 Secondary Insurance:[employer] InsuranPolicy Number: [id number] Date:4540-03-13JU [address] [place] [address]YT: Ashwini Westfall NabilernaDOB: 0270-68-02SAJ132 [place] [address]Ksw: () [facility] 04/26/2024 Tertiary Insurance:Self PayPolicy Number: Effective Date:2024-03-27 [facility] 04/24/2024 ASHWINI Westfall NABILERNADOB: [place] [address]Bjj: (HP) Primary Insurance:MEDICAREPol icy Number: [id number] Date:7794-02-13Vgyk Name:Medicare SAMUEL J PHILLB: [id number] [address] [place] [address] [facility] EP[facility] 04/24/2024 Secondary Insurance:ON LICENSE OF [facility] INS [facility] GRAPEVINEPolicy Number: [id number] Date:2022-07-12 ASHWINI Westfall PHILLB: [id number] [place] [address] [facility] [facility] EPIC 04/17/2024 ASHWINI Westfall PHILLB: [place] [address]Qbm: (HP) Primary Insurance:MEDICAREPol icy Number: [id number] Date:[id number] Name:Medicare SAMUEL J PHILLB: [id number] [place] [address] [facility] EPIC 04/17/2024 Secondary Insurance:BHUTANESE DJZ INS [facility] GRAPEVINEPolicy Number: [id number] Date:2022-07-12 ASHWINI Westfall PHILLB: [id number] [place] [address] [facility] EPIC
--- OUTSIDE RECORDS SUMMARY | 2025-04-09 22:06 | XMS_ITS | Clinical Summary ---
Author Organization [facility] Address [address] [facility] [place] [address] Care Team Providers Care Reel Worker Name Role Phone Unavailable Primary Care Provider Unavailabl e Source Comments The following information is NOT included in Care Everywhere downloads:Psychiatric notes, ECG results, Cardiac Rehab notes, Pulmonary Function notes, data from SmartForms (includes but not limited toPregnancy data,audiograms, eye exams, pre-surgical evaluation notes, well-child exam data).[facility] Social History Tobacco Use Types [...]
--- OUTSIDE RECORDS SUMMARY | 2025-04-09 22:06 | XMS_ITS | Encounter Summary ---
Author Organization [facility] Address [address] [place] [address] Phone Care Team Providers Care Silo Tender Name Role Phone Arnold Castro DO Primary Care Provider Encounter Details Date Type Department Care Team (Late st Contact Info) Description 04/30/2023 Scanned Document [facility] [address] [place] [phone] Scanning, Generic Provider Social History Tobacco Use [...] on filedocumented in this encounter Care Teams Silo Tender Relationship Specialty Start Date End Date Arnold Castro DO [address] [place] [address] PCP - General Internal Medicine 05/18/23 documented as of this encounter
--- OUTSIDE RECORDS SUMMARY | 2025-04-09 22:06 | XMS_ITS | Encounter Summary ---
Author Organization [facility] Address [address] [place] [address] Phone Care Team Providers Care Manager Enterprise Content Management Name Role Phone Arnold Castro DO Primary Care Provider Encounter Details Date Type Department Care Team (Late st Contact Info) Description 07/16/2023 Scanned Document [facility] [address] [place] [phone] Scanning, Generic Provider Social History Tobacco Use [...] as of this encounter Care Teams Manager Enterprise Content Management Relationship Specialty Start Date End Date Arnold Castro DO [address] [place] [address] PCP - General Internal Medicine 05/18/23 documented as of this encounter
--- OUTSIDE RECORDS SUMMARY | 2025-04-09 22:06 | XMS_ITS | Patient Health Record ---
Author Organization [facility] Address [address] [place] [address] Care Team Providers Care Bookmobile Driver Name Role Phone El Johnson Primary Care Provider Myriam Byrd Unavailable [phone] Reason For Referral No Information Medications Medication [...] W/U Status Risk Notes Problem Tinea pedis (5064736) Tinea pedis (110.4) Active confirmed Problem Onychomycosis (406811686) Onychomycosis (110.1) Active confirmed Plan Of Treatment No Information Insurance Providers Payer Name Payer Address Payer Phone Subscriber Number Group Number Insured Name Patient Relationship to Insured Coverage Start Date Coverage End Date [place] [address] [address] [place] [id number] [phone] [id number] Ifeanyi Roche Self - patient is the insured Inactive ins do not add [employer] [address] [place] [address] [phone] [id number] Ifeanyi Roche Self - patient is the insured Medical (General) History Medical History History ICD Code Denies history of skin cancer
--- OUTSIDE RECORDS SUMMARY | 2025-04-09 22:06 | XMS_ITS | Encounter Summary ---
Author Organization [facility] Address [address] [place] [address] Phone Care Team Providers Care Passenger Relations Representative Name Role Phone Arnold Castro DO Primary Care Provider Encounter Details Date Type Department Care Team (Late st Contact Info) Description 04/28/2023 Scanned Document [facility] [address] [place] [phone] Scanning, Generic Provider Social History Tobacco Use [...] on filedocumented in this encounter Care Teams Passenger Relations Representative Relationship Specialty Start Date End Date Arnold Castro DO [address] [facility] [address] [place] [id number] PCP - General Internal Medicine 05/18/23 documented as of this encounter
--- OUTSIDE RECORDS SUMMARY | 2025-04-09 22:06 | XMS_ITS | Encounter Summary ---
Author Organization [facility] Address [address] [place] [address] Phone Care Team Providers Care Assistant Construction Superintendent Name Role Phone Arnold Castro DO Primary Care Provider Encounter Details Date Type Department Care Team (Late st Contact Info) Description 06/23/2023 Scanned Document [facility] [address] [place] [phone] Scanning, Generic Provider Social History Tobacco Use [...] PM EST documented as of this encounter Functional Status * Question Answer Date of Assessment Author BP 110/54 06/23/2023 2:11 PM EST Oren Mayes MA Pulse 78 06/23/2023 2:11 PM EST Oren Mayes MA * Communicable Disease Screening Question Answer Date of Assessment Author Do you have any of the following new or worsening symptoms? None of these 06/23/2023 2:00 PM EST Irving Bird E documented as of this encounter Plan of Treatment Not on file documented as of this encounter Visit Diagnoses Not on filedocumented in this encounter Additional Health Concerns Assessment Noted Time A fall risk assessment has been complete d for the patient 06/23/2023 2:11 PM EST documented as of this encounter Care Teams Assistant Construction Superintendent Relationship Specialty Start Date End Date Arnold Castro DO [address] [place] [address] PCP - General Internal Medicine 05/18/23 documented as of this encounter
--- OUTSIDE RECORDS SUMMARY | 2025-04-09 22:06 | XMS_ITS | Clinical Summary ---
Author Organization [facility] Address [address] [place] [address] Phone Care Team Providers Care Summer Clerk Name Role Phone Arnold Castro Primary Care [...] Plan (08/16/2023 2:37 PM EST): Jun 2023 [facility] presented due to mechanical fall. 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
--- OUTSIDE RECORDS SUMMARY | 2025-04-09 22:06 | XMS_ITS | Clinical Summary ---
Author Organization [facility] Address [address] [place] [address] Care Team Providers Care Analytics Analyst Name Role Phone Patrick Beard MD Unavailable [phone] Arnold Castro MD Primary Care Provider [phone] Allergies No known active allergies Medications acetaminophen [...] chew, or split. 60 tablet 11 04/05/2024 Active Active Problems Problem Noted Date Diagnosed [...] (04/04/2024): Last Assessment & Plan: Jun 2023 [facility] presented due to mechanical fall. 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 oDiag PCI/[place] 3.5 x 18mm Daily activity < 4 METs IPMN (intraductal papillary mucinous neoplasm) 1 08/24/2017 Overview (04/04/2024): Added automatically from request for surgery [id number] Smoker 2018 Overview (04/04/2024): Black and milds [...] Urine Protein Screening 1954 Diabetes: Hemoglobin A1C 04/22/20242 024, 02/18/2023, 02/16/2023, Additional history exists COVID-19 [...] topic Insurance MEDICARE GENERIC COMMERCIAL Care Teams Analytics Analyst Relationship Specialty Start Date End Date Arnold Castro MD [address] [facility] [address] [place] [address] PCP - General Internal Medicine 05/04/24 Patrick Beard MD [address] [facility] [address] [place] [address] Gastroenterology 04/05/24
--- OUTSIDE RECORDS SUMMARY | 2025-04-09 22:06 | XMS_ITS | Patient Health Record ---
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 Problem Hypoglycemia (406428479) Hypoglycemia (E16.2) Active confirmed Problem Lower urinary tract symptoms due to benign prostatic hypertrophy (40994397358055) Benign prostatic hyperplasia with lower urinary tract symptoms (N40.1) Active confirmed Plan Of Treatment No Information Insurance Providers Payer Name Payer Address Payer Phone Subscriber Number Group Number Insured Name Patient Relationship to Insured Coverage Start Date Coverage End Date [place]IC[place] [address] [place] [address] [id number] Manolo Roche Self - patient is the insured 2 [facility] [address] [address] [place], [place] [id number] [phone] [id number] Manolo Roche Self - patient is the insured 8 Medical (General) History Medical History History ICD Code Diabetes 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
--- OUTSIDE RECORDS SUMMARY | 2025-04-09 22:06 | XMS_ITS | Encounter Summary ---
Author Organization [facility] Address [address] [place] [address] Phone Care Team Providers Care Operator Engineer Name Role Phone Arnold Castro DO Primary Care Provider Encounter Details Date Type Department Care Team (Late st Contact Info) Description 05/03/2023 Scanned Document [facility] [address] [place] [phone] Scanning, Generic Provider Social History Tobacco Use [...] on filedocumented in this encounter Care Teams Operator Engineer Relationship Specialty Start Date End Date Arnold Castro DO [address] [place] [address] PCP - General Internal Medicine 05/18/23 documented as of this encounter
--- OUTSIDE RECORDS SUMMARY | 2025-04-09 22:06 | XMS_ITS | Encounter Summary ---
Author Organization [facility] Address [address] [place] [address] Phone Care Team Providers Care Inspector Penetrant Name Role Phone Arnold Castro DO Primary Care Provider Encounter Details Date Type Department Care Team (Late st Contact Info) Description 02/06/2024 Scanned Document [facility] [address] [place] [phone] Scanning, Generic Provider Social History Tobacco Use [...] as of this encounter Care Teams Inspector Penetrant Relationship Specialty Start Date End Date Arnold Castro DO [address] [place] [address] PCP - General Internal Medicine 05/18/23 documented as of this encounter
--- OUTSIDE RECORDS SUMMARY | 2025-04-09 22:06 | XMS_ITS | Clinical Summary ---
Author Organization [facility] Address [address], [address] [place] [address] Care Team Providers Care Manager User Interface Name Role Phone Arnold Castro DO Primary Care Provider [phone] Allergies No known active allergies Medications PARoxetine (PAXIL) 30 MG tablet Take 30 mg by mouth every morning Active lipase-protease -amylase (CREON) [address] units delayed release capsule Take 1 capsule by mouth 3 times daily (with meals) Active lipase-protease -amylase (CREON) [address] units delayed release capsule Take 12,000 Units [...] of Treatment Not on file Insurance [place] [address] [place] [address] Loans [employer] [facility] MEDICARE Advance Directives * Full Code (Latest Code Status on File) Date Activated Date Inactivated Comments 01/02/2022 10:32 PM 01/07/2022 3:15 PM * Full Code Date Activated Date Inactivated Comments 01/02/2022 8:11 PM 01/02/2022 10:32 PM Healthcare Agents on File Name Relationship Healthcare Agent [facility] Communication Opal Monsivais Kaley Spouse Primary Decision Maker Saúl Kaley Child Secondary Decision Maker Care Teams Manager User Interface Relationship Specialty Start Date End Date Arnold Castro DO [address] [facility] [address] [place] [address] PCP - General Internal Medicine 01/07/22
[2025-04-09 22:48] VITALS: BP 195/101; PULSE 60; TEMP 36.8; O2SAT 97
--- NOTE | 2025-04-09 23:06 | ECG_ITS ---
[facility] Test Date: 2025-04-09 Pat Name: ASHWINI VICKERS Department: Room: - Gender: Male Senior Database Programmer: : 1935 Requested By: [id number] Order Number: [id number] MD: ASIYA ROACH M.D. Measurements Intervals Bixby Rate: 60 P: 10 WY: 202 QRS: -5 QRSD: 114 T: 200 QT: 464 QTc: 464 Interpretive Statements 73021 Electronic atrial pacemaker 5234 Left ventricular hypertrophy with repolarization abnormality 9150 abnormal ECG Compared to ECG 01/21/2024 04:38:04 Left ventricular hypertrophy now present Early repolarization now present Sinus rhythm no longer present Ventricular premature complex(es) no longer present gmoukPossible ischemia no longer present Electronically Signed On 04-10-2025 19:56:27 EDT by ASIYA ROACH M.D.
[2025-04-09 23:38] LABS: Hematocrit 32.2 % (42.0-54.0); Hemoglobin 11.0 g/dL (14.0-18.0); Immature Granulocytes Abs Auto 0.02 10^3/uL (0.00-0.03); Immature Granulocytes Pct Auto 0.2 % (0.0-0.5); Lymphocytes Absolute Auto 0.7 10^3/uL (1.2-3.8); Mean Corpuscular HGB Conc 34.2 g/dL (29.9-35.2); Mean Corpuscular Hemoglobin 29.1 pg (25.9-34.0); Mean Corpuscular Volume 85.2 fL (80.0-94.0); PCO2 VBG 41.7 mmHg (40.0-52.0); Platelet Count 140 10^3/uL (150-450); Red Blood Count 3.78 10^6/uL (4.70-6.10); White Blood Count 9.2 10^3/uL (4.0-11.0); pH VBG 7.396 (7.330-7.430)
--- NOTE | 2025-04-09 23:38 | ED_ITS ---
HPI HPI - General Adult General Chief complaint: Weakness Stated complaint: ABNORMAL LAB Time Seen by Provider: 04/09/25 22:15 Source: patient Mode of arrival: Wheelchair History of Present Illness HPI narrative: This 89-year-old male with a history of diabetes presents for evaluation of hyperglycemia. He was seen by his nurse practitioner from [facility] earlier today. His sugar has been high today. His Omni device is out of insulin. He does have Lantus and Humulin insulin pens but has not used any. He denies any chest pain or shortness of breath. He has no abdominal pain nausea or vomiting. He states he is very thirsty and his mucous membranes are dry. Related Data Home Medications ?Medication ?Instructions ?Recorded ?Confirmed fgowof-prebnvph-kxvxqps 2 cap PO TIDWM 08/21/2303/14 24,000-76,000-120,000 unit capsule,delayed rel (Creon) nitroglycerin 0.4 mg sublingual 0.4 mg sublingual Q5M PRN chest 08/21/23 04/10/25 tablet pain tamsulosin 0.4 mg capsule 0.4 mg PO QAM 08/21/2304/10 atorvastatin 80 mg tablet 80 mg PO DAILY 11/05/2303/14 dapagliflozin propanediol 10 mg mg 04/10/25 tablet (Farxiga) glucagon 1 mg/0.2 mL subcutaneous mg subcut 04/10/25 auto-injector (Gvoke HypoPen 1-Pack) insulin glargine-yfgn 100 unit/mL unit subcut 04/10/25 (3 mL) subcutaneous pen metoprolol succinate 25 mg mg PO 04/10/25 tablet,extended release 24 hr spironolactone 25 mg tablet mg 04/10/25 Allergies Allergy/AdvReac Type Severity Reaction Status Date / Time No Known Drug Allergies Allergy Verified 04/09/25 23:05 Opioid HPI Opioid Management Most Recent Opioid Data: Last Pain Scale 7 Today, 03:23 Last SEP Pain Assessment Today, 03:02 Review of Systems ROS Status of ROS 10 or more systems reviewed and unremark able except as noted in history and below [facility] Medical History (Updated 04/10/25 @ 04:51 by Sandra Paiz MD) H/O chronic pancreatitis ?Z87.19 - Personal history of other diseases of the digestive system (ICD-10) CAD (coronary artery disease) ?I25.10 - Atherosclerotic heart disease of [place] coronary artery without angina pectoris (ICD-10) Insulin dependent diabetes mellitus Atherosclerosis ?I70.90 - Unspecified atherosclerosis (ICD-10) Closed fracture of right hip requiring operative repair ?S72.001A - Fracture of unspecified part of neck of right femur, initial encounter for closed fracture (ICD-10) Diabetes ?E11.9 - Type 2 diabetes mellitus without complications (ICD-10) Surgical History (Updated 08/22/23 @ 10:52 by Lamra Mahan) H/O heart artery stent ?Z95.5 - Presence of coronary angioplasty implant and graft (ICD-10) 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 (ICD-10) 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) Social History Smoking status: Former smoker Little interest or pleasure in doing things: not at all Feeling down, depressed, or hopeless: not at all Exam Narrative Exam Narrative: Vital signs and Nursing Notes reviewed: Patient is afebrile with normal pulse, blood pressure is elevated 195/101, he is not hypoxic with pulse ox of 97% on room air General: Awake, alert, oriented, no acute distress, lying comfortably on the stretcher HEENT: Normocephalic atraumatic, mucous membranes are pink and dry, no swelling of the tongue, uvular pharyngeal soft tissues Neck: Supple, no meningeal signs, no anterior or posterior cervical lymphadenopathy, no JVD Chest: Lungs are clear to auscultation with good air entry, there is no wheezing rhonchi or rales appreciated no accessory muscle use, patient is speaking in complete sentences- CVS: Regular rate and rhythm S1-S2, no murmurs rubs or gallops, pulses are brisk and equal bilaterally ABD: Soft, nondistended, nontender, no rebound guarding or rigidity, bowel sounds are normal, no pulsatile masses appreciated Extremities: Moving all extremities, no lower extremity tenderness or swelling noted, negative Homans' sign, pulses are brisk and equal bilaterally Skin: Normal in appearance without rash,pallor, petechiae or purpura Neuro: No focal deficits Constitutional Vital Signs, click to edit/add: Last Vital Signs Temp 98.2 F 04/09/25 22:48 Pulse 63 04/10/25 03:40 Resp 17 04/10/25 03:40 BP 106/50 04/10/25 03:31 Pulse Ox 97 04/09/25 22:48 O2 Del Method Room Air 04/09/25 22:48 Course Vital Signs Vital signs: Vital Signs Temperature 98.2 F 04/09/25 22:48 Pulse Rate 60 04/09/25 22:48 Respiratory Rate 20 04/09/25 22:48 Blood Pressure 195/101 H 04/09/25 22:48 Pulse Oximetry 97 04/09/25 22:48 Oxygen Delivery Method Room Air 04/09/25 22:48 Temperature 98.2 F 04/09/25 22:48 Pulse Rate 63 04/10/25 03:40 Respiratory Rate 17 04/10/25 03:40 Blood Pressure 106/50 04/10/25 03:31 Pulse Oximetry 97 04/09/25 22:48 Oxygen Delivery Method Room Air 04/09/25 22:48 Medical Decision Making MDM Narrative Medical decision making narrative: This 89-year-old male with a history of diabetes and heart disease who has a pacemaker is brought to the emergency department by his after he was referred to the emergency department by his back panel padder for elevated glucose. He saw his nurse practitioner from [facility] earlier today. Routine labs were ordered and he was referred to the emergency department. He states he was being seen because he has been out of the insulin for his Omni insulin device for the past 2 to 3 days. He has polyuria and polydipsia. He denies any complaints of pain. He has not had any fever. An Accu-Chek done upon arrival was greater than 600. He had lab work for comparison on 04/02/2025. An EKG done upon arrival is a paced rhythm at 60 bpm with no acute findings. An IV was placed and routine labs were ordered. He was started on IV fluids at the time of his blood draw. He has a normal white count, hemoglobin is mildly low at 11. There is no sign of any active bleeding. His sodium is low at 119 with correction for his elevated glucose of 853 his sodium is between 131 and 137. Potassium is elevated at 5.5 with no EKG changes to reflect hyperkalemia. BUN and creatinine are elevated today at 79 and 2.32 which is similar to his blood work done on 04/02/2025 but markedly elevated compared to his baseline. pCO2 on his comprehensive metabolic panel file was 26.4, acetone is negative. His venous pH is 7.39. Venous pCO2 is 41.7. Urine is negative for infection but positive for glucose. Troponin is elevated at 121. He was given 10 units of IV insulin as well as IV fluids and started on an insulin drip at 5units/hr. His blood pressure was noted to be markedly elevated upon arrival in the 190s over 100s and he was given 10 mg of IV hydralazine. Blood pressure responded well to the hydralazine and went into the 140s/70s. Due to the acute kidney injury and elevated troponin he will likely not be amenable to admission at this facility. The case was discussed with the hospitalist at [facility] and he is accepted for transfer. Dr. Hidalgo is the accepting physician and requested a noncontrast CT scan of the abdomen pelvis to rule out obstructive symptoms causing the acute kidney injury prior to being transferred. The patient has been urinating reasonably well but the CT scan did show that his bladder was full of urine after receiving IV fluids. Bladder scan revealed greater than 600 cc of retained urine in his bladder and a Chase catheter was placed for decompression of his bladder. 1200 cc of urine was drained from his bladder after the chase catheter was placed. CXR was ordered and shows chronic changes with no sign of fluid overload. Repeat labs were ordered; CPK is 369, delta troponin is 116 and repeat glucose is 729. CT scan of the abdomen pelvis shows bilateral hydronephrosis and hydroureter with no ureteral calculus which appears partially chronic in nature. There is no small bowel obstruction no free air to suggest perforation no significant free fluid or loculated fluid collection. Repeat BMP was ordered. Glucose is now 565. BUN and creatinine remain elevated with mild improvement. Patient was continually reevaluated and started having cramps in his feet and legs making him uncomfortable. He was given 2 mg then 4 mg of morphine and Zofran with clinical improvement. 0330 Urine output is 3300 Repeat glucose is 419. BUN and creatinine are improving after IVF and the chase catheter. We will discontinue the insulin drip at this time and continue fluids Case was discussed with the hospitalist and he is accepted for admission to this facility. Medical Records Medical records reviewed: Yes I reviewed the patient's medical records Lab Data Lab results reviewed: Yes I reviewed the patient's lab results Labs: Lab Results 04/09/25 04/09/25 04/10/25 Range/Units 23:20 23:30 01:40 WBC 9.2 (4.0-11.0) 10^3/uL RBC 3.78 L (4.70-6.10) 10^6/uL Hgb 11.0 L (14.0-18.0) g/dL Hct 32.2 L (42.0-54.0) % MCV 85.2 (80.0-94.0) fL MCH 29.1 (25.9-34.0) pg MCHC 34.2 (29.9-35.2) g/dL RDW 15.9 H (11.0-15.0) % Plt Count 140 L (150-450) 10^3/uL Neut % (Auto) 83.7 H (43.0-75.0) % Lymph % (Auto) 7.8 L (20.5-60.0) % Baldwin % (Auto) 7.9 (1.7-12.0) % Eos % (Auto) 0.2 L (0.9-7.0) % Baso % (Auto) 0.2 (0.2-2.0) % Neut # (Auto) 7.7 H (1.4-6.5) 10^3/uL Lymph # (Auto) 0.7 L (1.2-3.8) 10^3/uL Baldwin # (Auto) 0.7 (0.3-0.8) 10^3/uL Eos # (Auto) 0.0 (0.0-0.7) 10^3/uL Baso # (Auto) 0.0 (0.0-0.1) 10^3/uL Abs Immat Gran (auto) 0.02 (0.00-0.03) 10^3/uL Imm/Tot Granulo (auto) 0.2 (0.0-0.5) % VBG pH 7.396 (7.330-7.430) VBG pCO2 41.7 (40.0-52.0) mmHg Sodium 119 L* (136-145) mmol/L Potassium 5.5 H (3.5-5.1) mmol/L Chloride 85 L (98-107) mmol/L Carbon Dioxide 26.4 (21.0-32.0) mmol/L Anion Gap 13.1 BUN 79.0 H* (7.0-18.0) mg/dL Creatinine 2.32 H (0.70-1.30) mg/dL Est GFR ( Amer) 32 L (>=60 mL/min/1.73m^2) Est GFR (Non-Af Amer) 27 L (>=60 mL/min/1.73m^2) BUN/Creatinine Ratio 34.1 Glucose 853 H* (74-106) mg/dL Calcium 8.6 (8.5-10.1) mg/dL Total Bilirubin 0.5 (0.2-1.0) mg/dL AST 41 H (15-37) U/L ALT 49 (16-63) U/L Alkaline Phosphatase 159 H (46-116) U/L Total Creatine Kinase 369 H* (39-308) U/L Troponin I High Sens 121.2 H* 116.3 H* (4.0-76.1) pg/mL Total Protein 6.9 (6.4-8.2) g/dL Albumin 3.2 L (3.4-5.0) g/dL Globulin 3.7 g/dL Albumin/Globulin Ratio 0.9 Urine Color Lt. yellow (YELLOW) Urine Clarity Clear (CLEAR) Urine pH 6.0 (5.0-9.0) Ur Specific [place] <=1.005 A (1.005-1.025) Urine Protein Negative (NEG/TRACE) mg/dL Urine Glucose (UA) >=1000 A (NEGATIVE) mg/dL Urine Ketones Negative (NEGATIVE) mg/dL Urine Occult Blood Trace-i (NEGATIVE) Urine Nitrite Negative (NEGATIVE) Urine Bilirubin Negative (NEGATIVE) Urine Urobilinogen 0.2 (0.2-1.0) EU/dL Ur Leukocyte Esterase Negative (NEGATIVE) Urine RBC 0-2 (0-2) #/HPF Urine WBC None seen (NONE SEEN) #/HPF Ur Squamous Epith Cells None seen (NONE/RARE) #/LPF Urine Crystals None seen (None Seen) #/HPF Urine Bacteria None seen (NONE SEEN) #/HPF Urine Casts None seen (NONE SEEN) #/LPF Urine Mucus None seen (NONE SEEN) Urine Yeast Seen A (NONE SEEN) Ur Culture Indicated? No Acetone, Qual Negative (NEGATIVE) 04/10/25 04/10/25 04/10/25 Range/Units 01:45 03:00 04:15 WBC (4.0-11.0) 10^3/uL RBC (4.70-6.10) 10^6/uL Hgb (14.0-18.0) g/dL Hct (42.0-54.0) % MCV (80.0-94.0) fL MCH (25.9-34.0) pg MCHC (29.9-35.2) g/dL RDW (11.0-15.0) % Plt Count (150-450) 10^3/uL Neut % (Auto) (43.0-75.0) % Lymph % (Auto) (20.5-60.0) % Baldwin % (Auto) (1.7-12.0) % Eos % (Auto) (0.9-7.0) % Baso % (Auto) (0.2-2.0) % Neut # (Auto) (1.4-6.5) 10^3/uL Lymph # (Auto) (1.2-3.8) 10^3/uL Baldwin # (Auto) (0.3-0.8) 10^3/uL Eos # (Auto) (0.0-0.7) 10^3/uL Baso # (Auto) (0.0-0.1) 10^3/uL Abs Immat Gran (auto) (0.00-0.03) 10^3/uL Imm/Tot Granulo (auto) (0.0-0.5) % VBG pH (7.330-7.430) VBG pCO2 (40.0-52.0) mmHg Sodium 130 L 131 L (136-145) mmol/L Potassium 3.8 3.5 (3.5-5.1) mmol/L Chloride 92 L 96 L (98-107) mmol/L Carbon Dioxide 26.9 25.3 (21.0-32.0) mmol/L Anion Gap 14.9 13.2 BUN 74.0 H 69.0 H (7.0-18.0) mg/dL Creatinine 2.38 H 1.98 H (0.70-1.30) mg/dL Est GFR ( Amer) 31 L 39 L (>=60 mL/min/1.73m^2) Est GFR (Non-Af Amer) 26 L 32 L (>=60 mL/min/1.73m^2) BUN/Creatinine Ratio 31.1 34.8 Glucose 726 H* 565 H* 419 H (74-106) mg/dL Calcium 8.6 7.7 L (8.5-10.1) mg/dL Total Bilirubin (0.2-1.0) mg/dL AST (15-37) U/L ALT (16-63) U/L Alkaline Phosphatase (46-116) U/L Total Creatine Kinase (39-308) U/L Troponin I High Sens (4.0-76.1) pg/mL Total Protein (6.4-8.2) g/dL Albumin (3.4-5.0) g/dL Globulin g/dL Albumin/Globulin Ratio Urine Color (YELLOW) Urine Clarity (CLEAR) Urine pH (5.0-9.0) Ur Specific [place] (1.005-1.025) Urine Protein (NEG/TRACE) mg/dL Urine Glucose (UA) (NEGATIVE) mg/dL Urine Ketones (NEGATIVE) mg/dL Urine Occult Blood (NEGATIVE) Urine Nitrite (NEGATIVE) Urine Bilirubin (NEGATIVE) Urine Urobilinogen (0.2-1.0) EU/dL Ur Leukocyte Esterase (NEGATIVE) Urine RBC (0-2) #/HPF Urine WBC (NONE SEEN) #/HPF Ur Squamous Epith Cells (NONE/RARE) #/LPF Urine Crystals (None Seen) #/HPF Urine Bacteria (NONE SEEN) #/HPF Urine Casts (NONE SEEN) #/LPF Urine Mucus (NONE SEEN) Urine Yeast (NONE SEEN) Ur Culture Indicated? Acetone, Qual (NEGATIVE) ECG Data Attestation: I personally reviewed and interpreted this ECG as follows: (Paced rhythm at 60 bpm otherwise normal EKG) Critical Care Time Critical Care Time Total Critical Care Time: 35 Attestation: Due to this patient's presentation with marked hyperglycemia and acute kidney injury with elevated troponins and markedly elevated blood pressure upon arrival requiring IV management of his blood pressure and IV management of his hyperglycemia and the high probability of sudden clinically significant deterioration in his condition he required the highest level of my preparedness to intervene urgently. I provided critical care time including documentation time medication orders and management reevaluation vital sign assessment ordering reviewing of tests, ordering and reviewing of radiographic studies consultation with other physicians in consultation with hospitalist, agreed critical care time is 35 minutes including only time during which I was engaged in work directly due to his care Discharge Plan Discharge Chief Complaint: Weakness Clinical Impression: Elevated troponin, Hyperglycemia due to diabetes mellitus, Acute kidney injury, Uncontrolled hypertension, Hydronephrosis Patient Disposition: Admitted as Observation Time of Disposition Decision: 01:05 Condition: Fair
[2025-04-09 23:39] LABS: Glucose Urine UA >=1000 mg/dL (NEGATIVE)
[2025-04-09] MEDS: 0.9 % SODIUM CHLORIDE 1,000 ML 1000 ML IV (23:46)
[2025-04-09 23:48] LABS: Cast Seen? NONE SEEN #/LPF (NONE SEEN); Crystals Seen? None Seen #/HPF (None Seen); Urine Culture Indicated NO
[2025-04-09 23:52] VITALS: PULSE 60
[2025-04-09 23:53] VITALS: PULSE 60
[2025-04-09 23:56] VITALS: BP 177/107
[2025-04-09 23:57] LABS: Alanine Aminotransferase 49 U/L (16-63); Albumin Globulin Ratio 0.9; Albumin Level 3.2 g/dL (3.4-5.0); Alkaline Phosphatase 159 U/L (46-116); Anion Gap 13.1; Aspartate Amino Transferase 41 U/L (15-37); Calcium 8.6 mg/dL (8.5-10.1); Carbon Dioxide 26.4 mmol/L (21.0-32.0); Chloride 85 mmol/L (98-107); Estimated GFR (African America 32 (>=60 mL/min/1.73m^2); Estimated GFR (Non-African Ame 27 (>=60 mL/min/1.73m^2); Globulin 3.7 g/dL; Potassium 5.5 mmol/L (3.5-5.1); Total Protein 6.9 g/dL (6.4-8.2)
[2025-04-10] VITALS (50 sets, daily range): BP systolic 90–193; BP diastolic 47–91; PULSE 61–79; TEMP 36.4–37.2; O2SAT 90–95; BMI 19.2
[2025-04-10] LABS: Blood Urea Nitrogen 79.0 mg/dL (7.0-18.0); Glucose 853 mg/dL (74-106); Sodium 119 mmol/L (136-145)
[2025-04-10] MEDS: HYDRALAZINE HCL 20 MG/ML VIAL 10 MG IVP (00:21)
[2025-04-10] MEDS: INSULIN REGULAR IN 0.9 % NACL 100 UNIT/100 ML PLAST..BAG 430.915 UNIT IV (00:26)
[2025-04-10] MEDS: INSULIN REGULAR, HUMAN (100 UNIT/ML) 10 ML MDV 10 UNIT IV (01:00)
--- NOTE | 2025-04-10 01:27 | PC.NURSE ---
PVR done and is greater than 696 ml. Cath done. !200 ml of clear pale yellow urine out. Pt voided 300 ml 3 times prior to Kimble placement. Pt states that he feels so much better after the Kimble placed.
--- NOTE | 2025-04-10 01:46 | PC.NURSE ---
repeat trop and glucose redrawn. Glucometer unable to read too high
--- NOTE | 2025-04-10 02:01 | XR_ITS ---
The [address] [address] Patient Name: ASHWINI VICKERS MRN: [id number] date: 1935 Sex: M Assigned Patient Location: ER Current Patient Location: [place] Accession/Order Number: [id number] Exam Date: 04/10/2025 02:19 Report Date: 04/10/2025 07:54 At the request of: ERICK KAPOOR MD Procedure: XR chest 1V XR chest 1V 04/10/2025 2:21 AM SIGNS AND SYMPTOMS: ^cough PROTOCOL: Frontal radiograph of the chest COMPARISON: 01/21/2024 FINDINGS: The trachea is midline. There has been interval placement of a dual lead pacer device in the left chest wall. The leads are intact and satisfactory position. The heart and mediastinal structures are within normal limits. Chronic appearing hazy airspace opacities are noted with interstitial prominence. Degenerative changes are noted in the shoulders and thoracic spine. The bony thorax is intact. XR/XR chest 1V IMPRESSION: No acute cardiopulmonary pathology. Interval placement of a left-sided pacer device. Chronic interstitial prominence and hazy airspace opacities are redemonstrated. Impression dictated by: Fidencio Valentin M.D. 04/10/2025 7:54 AM Dictation Location: [facility] Electronically authenticated by: [id number] Y Date: 04/10/2025 07:54
[2025-04-10 02:07] LABS: Creatine Kinase 369 U/L (39-308)
[2025-04-10 02:07] LABS: Glucose 726 mg/dL (74-106)
[2025-04-10] MEDS: MORPHINE SULFATE 2 MG/ML SYRINGE IV (03:02)
[2025-04-10] MEDS: 0.9 % SODIUM CHLORIDE 1,000 ML 125 ML IV (03:02)
[2025-04-10] MEDS: MORPHINE SULFATE 4 MG/ML VIAL IV (03:23)
[2025-04-10 03:25] LABS: Anion Gap 14.9; Blood Urea Nitrogen 74.0 mg/dL (7.0-18.0); Calcium 8.6 mg/dL (8.5-10.1); Carbon Dioxide 26.9 mmol/L (21.0-32.0); Chloride 92 mmol/L (98-107); Estimated GFR (African America 31 (>=60 mL/min/1.73m^2); Estimated GFR (Non-African Ame 26 (>=60 mL/min/1.73m^2); Potassium 3.8 mmol/L (3.5-5.1); Sodium 130 mmol/L (136-145)
[2025-04-10 03:26] LABS: Glucose 565 mg/dL (74-106)
--- NOTE | 2025-04-10 03:26 | PC.NURSE ---
Lab calls result of [phone]. [phone]. Will call [facility] because we also have CT results. Dr Hidalgo called back.
--- NOTE | 2025-04-10 03:46 | PC.NURSE ---
Pt will not leave the SPO2 monitor on his finger. Spo2 spot check is 94% RA with a RR of 14.
[2025-04-10 04:29] LABS: Anion Gap 13.2; Blood Urea Nitrogen 69.0 mg/dL (7.0-18.0); Calcium 7.7 mg/dL (8.5-10.1); Carbon Dioxide 25.3 mmol/L (21.0-32.0); Chloride 96 mmol/L (98-107); Estimated GFR (African America 39 (>=60 mL/min/1.73m^2); Estimated GFR (Non-African Ame 32 (>=60 mL/min/1.73m^2); Glucose 419 mg/dL (74-106); Potassium 3.5 mmol/L (3.5-5.1); Sodium 131 mmol/L (136-145)
--- NOTE | 2025-04-10 05:14 | CA_ITS ---
Patient Name: ASHWINI VICKERS MR#: [id number] : 1935 Exam Date: 04/10/2025 Ordering Doctor: DURGA MORGAN ECHOCARDIOGRAM REPORT PROCEDURE: CA ECHO DOPPLER COMPLETE INDICATIONS: CAD, pacemaker, diabetes, cardiac stent COMPARISON: None. DESCRIPTION: COMPLETE ECHOCARDIOGRAM Real-time transthoracic echocardiography with 2D, M-mode, spectral and color flow Doppler performed. QUALITY: Technical quality was good. LEFT VENTRICLE: Normal chamber size. Normal left ventricular wall thickness. There is akinesis of the mid and distal septum and apex. The remaining segments appear to contract well. Global systolic function is moderately reduced. Estimated left ventricular ejection fraction is 35-40%. LV EF: Moderately reduced left ventricular ejection fraction, (35-40%). DIASTOLIC: Grade II diastolic dysfunction. ATRIAL SEPTUM: LEFT ATRIUM: Moderate dilatation. RIGHT ATRIUM: Mild dilatation. RIGHT VENTRICLE: Normal chamber size. Normal systolic function. Pacer wire present. TRICUSPID VALVE: Normal mobility and thickness. No stenosis with mild regurgitation. No evidence of pulmonary hypertension. RVSP 28 mmHg MITRAL VALVE: Mildly thickened with normal mobility. No evidence of mitral valve stenosis. Mild mitral annular calcification. No mitral regurgitation. AORTIC VALVE: Normal trileaflet appearance. Mildly calcified aortic valve. Normal leaflet mobility. No evidence of aortic valve stenosis. No aortic regurgitation. AORTIC ROOT: Normal diameter and appearance, measuring 3.7 cm. PULMONIC VALVE: Not well visualized. No stenosis. No regurgitation. PERICARDIUM: No evidence of pericardial effusion. IVC: Collapses with inspiration. IVC is normal in size. PLEURA: CONCLUSION: 1. The left ventricle is normal in size and exhibits moderately reduced global systolic function with segmental wall motion abnormalities. Estimated LVEF is 35 to 40%. 2. Normal right ventricular size and systolic function. 3. Mild to moderate biatrial dilatation. 4. Mild tricuspid regurgitation. 5. Normal right-sided pressures. Adult Echocardiography Procedure Report Left Ventricle LVEDD (3.7 - 5.6 cm): 4.55 cm LVESD (2.2 - 4.0 cm): 2.81 cm LVIVS thickness (0.6 - 1.2 cm): 1.05 cm LVPW thickness (0.5 - 1.0 cm): 1.15 cm e': 0.07 m/s E - e': 4.77 LVOT Max Gradient: 4.72 mm[Hg] LVOT Area (cm2): 1.09 m/s Peak Velocity (LVOT): 1.09 m/s Mean Velocity (LVOT): 0.60 m/s LVOT Diameter 2.42 cm Left Atrium LA Volume Index (2D A2C): 47.34 ml/m2 Left Atrium Systolic Dimension: 3.14 cm Mitral Valve MV E to A Ratio: 0.54 Mitral Valve A-Wave Peak Velocity: 0.64 m/s Mitral Valve E-Wave Peak Velocity: 0.34 m/s Right Ventricle Aorta AO Root Diam: 3.72 cm Aortic Valve AoV Area (Peak Gerald): 4.19 cm2, 4.19 cm2 AoV Area (VTI): 3.85 cm2, 3.85 cm2 Peak Velocity(Antegrade Flow): 1.20 m/s Peak Gradient(Antegrade Flow): 5.71 mm[Hg] Mean Velocity(Antegrade Flow): 0.74 m/s Mean Gradient(Antegrade Flow): 2.65 mm[Hg] Velocity Time Integral: 20.80 cm Tricuspid Valve Peak Velocity (Regurgitant Flow): 2.50 m/s Pulmonic Valve Peak Velocity: 0.67 m/s Peak Gradient: 1.82 mm[Hg] Right Atrium Right Atrium Systolic Pressure: 72.72 ml, 72.72 ml Dictated by: Chuck Gaviria M.D. on 04/10/2025 at 19:20 Approved by: Chuck Gaviria M.D. on 04/10/2025 at 19:27
[2025-04-10 05:26] LABS: Magnesium 1.6 mg/dL (1.8-2.4)
--- NOTE | 2025-04-10 05:49 | PC.NURSE ---
Student Recruiter contacted pt's Rose to inform that admitted here to room 219.
[2025-04-10] MEDS: HEPARIN SODIUM (PORCINE) 5,000 UNIT/ML VIAL 5000 UNIT SUBQ (06:27)
[2025-04-10] MEDS: INSULIN GLARGINE 300 UNIT/3 ML INSULN.PEN 15 UNIT SQ (09:04)
--- NOTE | 2025-04-10 09:29 | CM.NOTE ---
Rounded with . PT/OT ordered. Consult to Cardiology.
[2025-04-10 11:38] LABS: Alanine Aminotransferase 43 U/L (16-63); Albumin Globulin Ratio 0.9; Albumin Level 3.0 g/dL (3.4-5.0); Alkaline Phosphatase 130 U/L (46-116); Anion Gap 12.5; Aspartate Amino Transferase 44 U/L (15-37); Blood Urea Nitrogen 71.0 mg/dL (7.0-18.0); Calcium 8.8 mg/dL (8.5-10.1); Carbon Dioxide 28.3 mmol/L (21.0-32.0); Chloride 96 mmol/L (98-107); Estimated GFR (African America 45 (>=60 mL/min/1.73m^2); Estimated GFR (Non-African Ame 37 (>=60 mL/min/1.73m^2); Globulin 3.5 g/dL; Glucose 58 mg/dL (74-106); Potassium 3.8 mmol/L (3.5-5.1); Sodium 133 mmol/L (136-145); Total Protein 6.5 g/dL (6.4-8.2)
--- NOTE | 2025-04-10 12:26 | CM.NOTE ---
CM went in to speak with pt regarding Omnipod for Diabetes. Pt states the machine had come off while he was sleeping and he did not have supplies to reattach the Omnipod. Spoke with pt about getting more supplies, pt was unsure about getting more supplies or where his machine is at. Pt states his will be back in at some point today and she will know more about his machine. CM will stop back and speak with regarding plan at discharge with Omnipod.
--- NOTE | 2025-04-10 13:07 | CM.NOTE ---
CM back out to speak with , had already left. Spoke with service secretary Yanique, she will notify CM when returns.
--- NOTE | 2025-04-10 13:38 | PM.HP ---
HPI H&P: HPI History of Present Illness Chief complaint: ABNORMAL LAB Narrative: Mr Roche is an 89-year-old gentleman with a known diagnosis of diabetes. He has insulin pump. His market asset protection manager asked him to go to the emergency room due to his blood sugar reading high. On arrival to the emergency room department his blood sugar was 850. Patient did not have any acidosis or elevation of the anion gap. Patient stated that his pump was not working. No fever or chills. No seroconversion. He was found to have elevated troponin. He has a paced rhythm. Patient denies any chest pain or discomfort He was found to have acute on chronic kidney failure as well as urinary retention. CAT scan of the abdomen showed bilateral hydronephrosis secondary to distended bladder. Patient is on Flomax at home. Kimble catheter was drained about 700 mL of urine. Patient felt comfortable after that. Patient was found to have hypertensive emergency. Systolic blood pressure was 193. He was given multiple medications for that. Currently patient is chest pain-free. Opioid HPI Opioid Management Most Recent Pain and Opioid Data: Last Pain Scale 3 Today, 07:55 Last Pain Assessment Today, 06:00 Last MAR Pain Assessment Today, 03:02 Last ORT Total Score 0 Today, 05:44 Last ORT Risk Category Low Risk Today, 05:44 [facility] Medical History (Updated 04/10/25 @ 13:40 by Chris Holm MD) H/O chronic pancreatitis ?Z87.19 - Personal history of other diseases of the digestive system (ICD-10) CAD (coronary artery disease) ?I25.10 - Atherosclerotic heart disease of [place] coronary artery without angina pectoris (ICD-10) Insulin dependent diabetes mellitus Atherosclerosis ?I70.90 - Unspecified atherosclerosis (ICD-10) Closed fracture of right hip requiring operative repair ?S72.001A - Fracture of unspecified part of neck of right femur, initial encounter for closed fracture (ICD-10) Diabetes ?E11.9 - Type 2 diabetes mellitus without complications (ICD-10) Surgical History (Updated 08/22/23 @ 10:52 by Lamar Mahan) H/O heart artery stent ?Z95.5 - Presence of coronary angioplasty implant and graft (ICD-10) 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 (ICD-10) 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) Family History (Updated 04/10/25 @ 05:51 by Thania Zhang RN) Other Family history of myocardial infarction Social History (Updated 04/10/25 @ 05:52 by Thania Zhang RN) Within the past year, how often did you have a drink containing alcohol: monthly or less Smoking status: Former smoker Non-prescribed substance use: denies use Highest level of school completed/degree received: some college, no degree Are you now , , , , never or living with a partner: In a typical week, how many times do you talk on the telephone with family, friends, or neighbors: twice per week How often do you get together with friends or relatives: twice per week Little interest or pleasure in doing things: more than half the days Feeling down, depressed, or hopeless: more than half the days Feel stressed/tense/nervous/anxious/difficulty sleeping: to some extent Do you think of yourself as: straight/heterosexual Gender Identity: male Meds Home Medications and Allergies Home Medications ?Medication ?Instructions ?Recorded ?Confirmed ?Type umfawm-[id number]-oadpeuf 2 cap PO TIDWM 08/21/23 04/10/25 History 24,000-76,000-120,000 unit capsule,delayed rel (Creon) nitroglycerin 0.4 mg sublingual 0.4 mg sublingual Q5M PRN chest 08/21/23 04/10/25 History tablet pain tamsulosin 0.4 mg capsule 0.4 mg PO QAM 08/21/23 11/05/23 History atorvastatin 40 mg tablet 40 mg PO .qhs 04/10/25 04/10/25 History blood-glucose sensor (Dexcom G7 04/10/25 04/10/25 History Sensor device) insulin aspart U-100 100 unit/mL subcut 04/10/25 History (3 mL) subcutaneous pen (Novolog FlexPen U-100 Insulin aspart) insulin aspart U-100 100 unit/mL 75 unit continuous subcutaneous 04/10/25 04/10/25 History subcutaneous solution infusion Q24H insulin glargine 100 unit/mL (3 unit subcut 04/10/25 History mL) subcutaneous pen (Lantus Solostar U-100 Insulin) insulin pump cart,auto,BT,G6/7 04/10/25 04/10/25 History (Omnipod 5 G6-G7 Pods (Gen 5) subcutaneous cartridge) metoprolol succinate 25 mg 12.5 mg PO BID 04/10/25 04/10/25 History tablet,extended release 24 hr paroxetine HCl 40 mg tablet 40 mg PO .qd 04/10/25 04/10/25 History spironolactone 25 mg tablet 25 mg PO .qd 04/10/25 04/10/25 History Allergies Allergy/AdvReac Type Severity Reaction Status Date / Time No Known Drug Allergies Allergy Verified 04/09/25 23:05 Exam Narrative Exam Narrative: [pt is awake and alert. oriented to place, time and person HEENT: [place] conjunctiva and NL buccal mucosa Neck: Supple, no tenderness Endocrine: No Thyromegaly. Vascular: No JVD or carotid bruit. Lymphatic: No cervical lymphadenopathy. Chest: CTA no DTP. Heart RRR, no extra sound or murmur. Abd: Soft, no tenderness, no rebound and no rigidity. Increase abd girth therefore clinically I could not exclude the possibility of intra abd mass or organomegaly. LE: No cyanosis or clubbing, no varices or edema. Neuro: A A O. Nl speech, comprehension and attention. Nl and symetrical motor and tone examination through out. []] Constitutional Vital Signs, click to edit/add: Last Vital Signs Temp 98.0 F 04/10/25 11:06 Pulse 71 04/10/25 11:51 Resp 18 04/10/25 11:06 BP 111/47 L 04/10/25 11:06 Pulse Ox 91 L 04/10/25 11:06 O2 Del Method Room Air 04/10/25 11:06 Results Labs Labs: Short CBC 04/09/25 Range/Units 23:20 WBC 9.2 (4.0-11.0) 10^3/uL Hgb 11.0 L (14.0-18.0) g/dL Hct 32.2 L (42.0-54.0) % Plt Count 140 L (150-450) 10^3/uL BMP 04/09/25 04/10/25 04/10/25 23:20 01:45 03:00 Sodium 119 L* 130 L Potassium 5.5 H 3.8 Chloride 85 L 92 L Carbon Dioxide 26.4 26.9 BUN 79.0 H* 74.0 H Creatinine 2.32 H 2.38 H Glucose 853 H* 726 H* 565 H* Calcium 8.6 8.6 04/10/25 04/10/25 04:15 10:54 Sodium 131 L 133 L Potassium 3.5 3.8 Chloride 96 L 96 L Carbon Dioxide 25.3 28.3 BUN 69.0 H 71.0 H Creatinine 1.98 H 1.76 H Glucose 419 H 58 L Calcium 7.7 L 8.8 Cardiac Enzymes 04/10/25 Range/Units 01:40 Total Creatine Kinase 369 H* (39-308) U/L Liver Function 04/09/25 04/10/25 Range/Units 23:20 10:54 Total Bilirubin 0.5 0.4 (0.2-1.0) mg/dL AST 41 H 44 H (15-37) U/L ALT 49 43 (16-63) U/L Alkaline Phosphatase 159 H 130 H (46-116) U/L Albumin 3.2 L 3.0 L (3.4-5.0) g/dL Urine 04/09/25 Range/Units 23:30 Urine Color Lt. yellow (YELLOW) Urine Clarity Clear (CLEAR) Urine pH 6.0 (5.0-9.0) Ur Specific [place] <=1.005 A (1.005-1.025) Urine Protein Negative (NEG/TRACE) mg/dL Urine Glucose (UA) >=1000 A (NEGATIVE) mg/dL ABG ABG results: 04/09/25 23:20 VBG pH 7.396 VBG pCO2 41.7 Assessment and Plan Assessment and Plan (1) Hydronephrosis: (2) Uncontrolled hypertension: (3) Acute kidney injury: (4) CKD (chronic kidney disease): (5) Hyperglycemia due to diabetes mellitus: Plan Severe hyperglycemia at 850 associated with pseudohyponatremia Patient stated that his pump is not working or ran out of insulin. Likely patient does not have DKA. Patient was started on insulin drip in the emergency room department which was subsequently discontinued. Patient is on sliding scale coverage at this time. Elevated troponin. Patient has chronic elevation of the troponin. Ranging between 82 and 210. Patient denies any chest pain. EKG showed paced rhythm. Likely caused by severe hyperglycemia and hypertensive urgency. Requested echocardiogram Resume home beta-sarah. 1 dose of Plavix. Start patient on aspirin and Lovenox therapeutic dose, dose adjusted for CKD/DENISHA. Cardiac consultation. Defer further needed diagnostic and therapeutic invention as relates to cardiovascular status in the timing of that to cardiology team given their expertise. Patient follows up with a tobacco drummer in [place]. Hypertensive urgency likely triggered by severe urinary retention Resolved continue beta-sarah. Severe urinary retention associated with DENISHA on CKD. Imaging showed bilateral hydronephrosis. Patient is on Flomax at home. Kimble catheter was inserted. Continue IV fluid infusion due to suspected postoperative diuresis. Check PSA. Keep Kimble in for 7 to 10 days and follow-up with urology. Patient may need to have additional urological investigation which may include but not limited to prostate exam, cystoscopy, urodynamic study and others. Hypomagnesemia Magnesium supplementation Anemia, no evidence of acute blood loss. Patient will likely require to have anemia workup to be done in the outpatient setting to be handled by PCP in collaboration with other needed outpatient providers. This may include but not limited to EGD, colonoscopy, referral to see hematology and other needed age-appropriate cancer screening. Chronic, subacute medical conditions not listed above, abnormal labs and imaging. These would need to be addressed. Could be addressed later on or in the outpatient setting by PCP collaboration with other needed outpatient providers when time and condition are appropriate. Urinary Catheter Management Urinary Catheter Management Urethral: Cath placed during this visit: yes Urethral indwelling: No Insertion date: 04/10/25 Insertion time: 01:32
--- NOTE | 2025-04-10 13:43 | SWNOTE1 ---
Pt was eating lunch earlier and then pt was sleeping when SW returned. SW called and left a message for pt's Latosha, waiting for call back.
[2025-04-10] MEDS: 0.9 % SODIUM CHLORIDE 1,000 ML 100 ML IV (14:00)
--- NOTE | 2025-04-10 14:21 | P.URCN_ITS ---
Urology - CN: HPI Date of Consult Consult date: 04/10/25 Requesting Physician: Chris Holm MD Primary Care Provider: MARIE TEJEDA Consult Narrative Reason for consult IM: Urinary retention, hydronephrosis Narrative: Thank for consultation on this 89-year-old white male who was actually admitted with a hypertensive emergency significantly elevated blood glucose levels. During the course of the workup he is found to have urinary retention of about 700 cc and an indwelling Kimble catheter was placed. He was found to have bilateral hydronephrosis upon imaging. He has been maintained on tamsulosin for a longstanding history of BPH although upon questioning he is denying any significant difficulties with urination. The entire past medical history, past surgical history, systems review, family history, social history, medications and allergies are as noted in the admission history and physical performed by Dr. Holm and is unchanged. cc:: CC: Chris Holm MD [facility] Medical History (Updated 04/10/25 @ 14:24 by Tristan Melchor MD) H/O chronic pancreatitis ?Z87.19 - Personal history of other diseases of the digestive system (ICD-10) CAD (coronary artery disease) ?I25.10 - Atherosclerotic heart disease of [place] coronary artery without angina pectoris (ICD-10) Insulin dependent diabetes mellitus Atherosclerosis ?I70.90 - Unspecified atherosclerosis (ICD-10) Closed fracture of right hip requiring operative repair ?S72.001A - Fracture of unspecified part of neck of right femur, initial encounter for closed fracture (ICD-10) Diabetes ?E11.9 - Type 2 diabetes mellitus without complications (ICD-10) Surgical History (Updated 08/22/23 @ 10:52 by Lamar Mahan) H/O heart artery stent ?Z95.5 - Presence of coronary angioplasty implant and graft (ICD-10) 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 (ICD-10) 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) Family History (Updated 04/10/25 @ 05:51 by Thania Zhang RN) Other Family history of myocardial infarction Social History (Updated 04/10/25 @ 05:52 by Thania Zhang RN) Within the past year, how often did you have a drink containing alcohol: monthly or less Smoking status: Former smoker Non-prescribed substance use: denies use Highest level of school completed/degree received: some college, no degree Are you now , , , , never or living with a partner: In a typical week, how many times do you talk on the telephone with family, friends, or neighbors: twice per week How often do you get together with friends or relatives: twice per week Little interest or pleasure in doing things: more than half the days Feeling down, depressed, or hopeless: more than half the days Feel stressed/tense/nervous/anxious/difficulty sleeping: to some extent Do you think of yourself as: straight/heterosexual Gender Identity: male Meds Home Medications and Allergies Home Medications ?Medication ?Instructions ?Recorded ?Confirmed ?Type [id number]-pzbgqpbw-yzwscub 2 cap PO TIDWM 08/21/2303/14 History 24,000-76,000-120,000 unit capsule,delayed rel (Creon) nitroglycerin 0.4 mg sublingual 0.4 mg sublingual Q5M PRN chest 08/21/23 04/10/25 History tablet pain tamsulosin 0.4 mg capsule 0.4 mg PO QAM 08/21/2311/04 History atorvastatin 40 mg tablet 40 mg PO .qhs 04/10/2504/10 History blood-glucose sensor (Dexcom G7 04/10/25 04/10/25 His tory Sensor device) insulin aspart U-100 100 unit/mL subcut 04/10/25 Hist ory (3 mL) subcutaneous pen (Novolog FlexPen U-100 Insulin aspart) insulin aspart U-100 100 unit/mL 75 unit continuous melchor bcutaneous 04/10/25 04/10/25 History subcutaneous solution infusion Q24H insulin glargine 100 unit/mL (3 unit subcut 04/10/25 History mL) subcutaneous pen (Lantus Solostar U-100 Insulin) insulin pump cart,auto,BT,G6/7 04/10/25 04/10/25 Hist ory (Omnipod 5 G6-G7 Pods (Gen 5) subcutaneous cartridge) metoprolol succinate 25 mg 12.5 mg PO BID 04/10/25 History tablet,extended release 24 hr paroxetine HCl 40 mg tablet 40 mg PO .qd 04/10/2503/14 History spironolactone 25 mg tablet 25 mg PO .qd 04/10/2503/14 History Allergies Allergy/AdvReac Type Severity Reaction Status Date / Time No Known Drug Allergies Allergy Verified 04/09/25 23:05 Exam Narrative Exam Narrative: HEENT is within normal limits heart regular rate and rhythm Lungs clear Abdomen soft, nontender without bladder distention. Negative peritoneal signs Normal external male genitalia. Penis testicles within normal limits. Lower extremities without edema. Awake alert oriented. Constitutional Vital Signs, click to edit/add: Last Vital Signs Temp 98.0 F 04/10/25 11:06 Pulse 61 04/10/25 14:00 Resp 18 04/10/25 11:06 BP 111/47 L 04/10/25 11:06 Pulse Ox 91 L 04/10/25 11:06 O2 Del Method Room Air 04/10/25 11:06 Results Labs Labs: Short CBC 04/09/25 Range/Units 23:20 WBC 9.2 (4.0-11.0) 10^3/uL Hgb 11.0 L (14.0-18.0) g/dL Hct 32.2 L (42.0-54.0) % Plt Count 140 L (150-450) 10^3/uL BMP 04/09/25 04/10/25 04/10/25 23:20 01:45 03:00 Sodium 119 L* 130 L Potassium 5.5 H 3.8 Chloride 85 L 92 L Carbon Dioxide 26.4 26.9 BUN 79.0 H* 74.0 H Creatinine 2.32 H 2.38 H Glucose 853 H* 726 H* 565 H* Calcium 8.6 8.6 04/10/25 04/10/25 04:15 10:54 Sodium 131 L 133 L Potassium 3.5 3.8 Chloride 96 L 96 L Carbon Dioxide 25.3 28.3 BUN 69.0 H 71.0 H Creatinine 1.98 H 1.76 H Glucose 419 H 58 L Calcium 7.7 L 8.8 Cardiac Enzymes 04/10/25 Range/Units 01:40 Total Creatine Kinase 369 H* (39-308) U/L Liver Function 04/09/25 04/10/25 Range/Units 23:20 10:54 Total Bilirubin 0.5 0.4 (0.2-1.0) mg/dL AST 41 H 44 H (15-37) U/L ALT 49 43 (16-63) U/L Alkaline Phosphatase 159 H 130 H (46-116) U/L Albumin 3.2 L 3.0 L (3.4-5.0) g/dL Urine 04/09/25 Range/Units 23:30 Urine Color Lt. yellow (YELLOW) Urine Clarity Clear (CLEAR) Urine pH 6.0 (5.0-9.0) Ur Specific [place] <=1.005 A (1.005-1.025) Urine Protein Negative (NEG/TRACE) mg/dL Urine Glucose (UA) >=1000 A (NEGATIVE) mg/dL ABG ABG results: 04/09/25 23:20 VBG pH 7.396 VBG pCO2 41.7 Urology Assessment and Plan Assessment and Plan (1) Hydronephrosis: (2) Acute kidney injury: (3) Urinary retention: (4) BPH (benign prostatic hyperplasia): Plan Discussed with the patient and the nursing staff. He has 700 cc urinary retention associated with bilateral hydronephrosis and DENISHA on top of chronic kidney disease. Recommendation from the urologic standpoint is to keep the indwelling Kimble catheter for now. He can be discharged home at primary service discretion with indwelling catheter to leg bag. Next step from the urologic standpoint will be outpatient cystoscopic evaluation with consideration for urodynamics depending upon findings. Hopefully renal function will improve with simple drainage of the urinary bladder. Discussed this with the patient and he was in agreement with the plan. In the meantime he should stay on his Flomax 0.4 mg daily for bladder outlet relaxation. Thank for consultation.
--- NOTE | 2025-04-10 14:28 | SWNOTE1 ---
Important Message from Medicare reviewed and discussed with patient's , Rose, over the phone. Rose verbalized understanding and SW signed the form that it was reviewed. Original placed in pt's room and copy placed in patient?s chart.
--- NOTE | 2025-04-10 14:28 | SWNOTE1 ---
SW called pt's PCP to get the correct contact information for pt's . Phone number is [phone]. Sorry correct face sheet on chart. VANE called and spoke with pt's , Rose. Pt does have a walker and cane at home that he does use when needed. She voiced he walks pretty slow and can be unsteady at times. She also stated it is a 2 story home and the bedroom is upstairs, it is greater than 5 steps. VANE asked if he has ever been to rehab in the past? She stated no, he has only been to outpt therapy. SW did advise that therapy worked with him this morning, but he was pretty tired and a little out of it. They do recommend skilled at this time for rehab to get stronger. VANE advised that we can see how pt is doing tomorrow to determine discharge plans. Pt's in agreement.
--- NOTE | 2025-04-10 14:39 | CM.NOTE ---
CM spoke with pt's on telephone regarding home insulin pump. states pt had been becoming forgetful with dosing insulin, making sure cartridge was changed and dosing. states they went back to see code machine operator and have decided it would be in pt's best interest to go back to insulin pen for the next month. SENIOR ANALYSIS SPECIALIST encouraged pt to leave glucose monitor on for BS readings, states the monitor is not interacting with phone. SENIOR ANALYSIS SPECIALIST has set up for pt and to come back to office at the end of April for more education regarding the Omnipod. states with pt using pen, she can see that he injects insulin where as the monitor she was unsure. CM will look at pt's phone to see if monitor is connecting.
[2025-04-10] MEDS: ENOXAPARIN SODIUM 60 MG/0.6 ML SYRINGE SUBQ (14:53)
[2025-04-10] MEDS: ASPIRIN 81 MG TAB.CHEW PO (14:53)
[2025-04-10] MEDS: CLOPIDOGREL BISULFATE 75 MG TABLET PO (14:53)
[2025-04-10] MEDS: PAROXETINE HCL 20 MG TABLET 40 MG PO (14:53)
[2025-04-10 14:54] LABS: Thyroid Stimulating Hormone 2.529 uIU/mL (0.358-3.740)
--- NOTE | 2025-04-10 15:08 | CM.NOTE ---
Updated Dr. Holm on reason for pt not using Omnipod at this time d/u underlying confusion/forgetful. Pt has omnipod on at this time and will not communicate BS unless filled with insulin. states plan is not to use insulin pump at discharge. Spoke with [facility], in pt's retail history appears HADOOP ARCHITECT called in script for Dexcom monitor while pt changing over to insulin pen. Discussed this with RN Agnes Osman.
[2025-04-10] MEDS: TAMSULOSIN HCL 0.4 MG CAPSULE PO (15:32)
[2025-04-10] MEDS: INSULIN ASPART 300 UNIT/3 ML PEN SUBQ (15:48)
--- NOTE | 2025-04-10 17:10 | PM.CACN ---
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 [place] [facility] was consulted due to elevated troponin levels. Pt typically follows with [facility]. We attempted to get records from them prior to consult but no such luck. Pt has also been treated for uncontrolled HTN and urinary retention. Pt denies any c/o chest pain prior to admission nor during admission. He denies c/o dyspnea, orthopnea, PND, LE edema, dizziness/LH, palpitations. He had an ECHO this AM, results are pending. [facility] Medical History (Updated 04/10/25 @ 14:24 by Tristan Melchor MD) H/O chronic pancreatitis ?Z87.19 - Personal history of other diseases of the digestive system (ICD-10) CAD (coronary artery disease) ?I25.10 - Atherosclerotic heart disease of [place] coronary artery without angina pectoris (ICD-10) Insulin dependent diabetes mellitus Atherosclerosis ?I70.90 - Unspecified atherosclerosis (ICD-10) Closed fracture of right hip requiring operative repair ?S72.001A - Fracture of unspecified part of neck of right femur, initial encounter for closed fracture (ICD-10) Diabetes ?E11.9 - Type 2 diabetes mellitus without complications (ICD-10) Surgical History (Updated 08/22/23 @ 10:52 by Lamar Mahan) H/O heart artery stent ?Z95.5 - Presence of coronary angioplasty implant and graft (ICD-10) 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 (ICD-10) 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) Family History (Updated 04/10/25 @ 05:51 by Thania Zhang RN) Other Family history of myocardial infarction Social History (Updated 04/10/25 @ 05:52 by Thania Zhang RN) Within the past year, how often did you have a drink containing alcohol: monthly or less Smoking status: Former smoker Non-prescribed substance use: denies use Highest level of school completed/degree received: some college, no degree Are you now , , , , never or living with a partner: In a typical week, how many times do you talk on the telephone with family, friends, or neighbors: twice per week How often do you get together with friends or relatives: twice per week Little interest or pleasure in doing things: more than half the days Feeling down, depressed, or hopeless: more than half the days Feel stressed/tense/nervous/anxious/difficulty sleeping: to some extent Do you think of yourself as: straight/heterosexual Gender Identity: male Meds Home Medications and Allergies Home Medications ?Medication ?Instructions ?Recorded ?Confirmed ?Type icyqif-yqgwvjtj-[id number] 2 cap PO TIDWM 08/21/23 04/10/25 History 24,000-76,000-120,000 unit capsule,delayed rel (Creon) nitroglycerin 0.4 mg sublingual 0.4 mg sublingual Q5M PRN chest 08/21/23 04/10/25 History tablet pain atorvastatin 40 mg tablet 40 mg PO .qhs 04/10/25 04/10/25 History blood-glucose sensor (Dexcom G7 04/10/25 04/10/25 History Sensor device) insulin aspart U-100 100 unit/mL 4 unit subcut TIDWM 04/10/25 04/10/25 History (3 mL) subcutaneous pen (Novolog FlexPen U-100 Insulin aspart) insulin aspart U-100 100 unit/mL 75 unit continuous subcutaneous 04/10/25 04/10/25 History subcutaneous solution infusion Q24H insulin glargine 100 unit/mL (3 12 unit subcut DAILY 04/10/25 04/10/25 History mL) subcutaneous pen (Lantus Solostar U-100 Insulin) insulin pump cart,auto,BT,G6/7 04/10/25 04/10/25 History (Omnipod 5 G6-G7 Pods (Gen 5) subcutaneous cartridge) metoprolol succinate 25 mg 12.5 mg PO BID 04/10/25 04/10/25 History tablet,extended release 24 hr paroxetine HCl 40 mg tablet 40 mg PO .qd 04/10/25 04/10/25 History spironolactone 25 mg tablet 25 mg PO .qd 04/10/25 04/10/25 History Allergies Allergy/AdvReac Type Severity Reaction Status Date / Time No Known Drug Allergies Allergy Verified 04/09/25 23:05 Exam Constitutional Vital Signs, click to edit/add: Last Vital Signs Temp 97.7 F 04/10/25 15:33 Pulse 61 04/10/25 16:00 Resp 16 04/10/25 15:33 BP 110/67 04/10/25 15:33 Pulse Ox 94 L 04/10/25 15:33 O2 Del Method Room Air 04/10/25 15:33 Results Labs and Meds Lab results: Cardiac Enzymes 04/09/25 04/10/25 Range/Units 23:20 10:54 AST 41 H 44 H (15-37) U/L CBC 04/09/25 Range/Units 23:20 WBC 9.2 (4.0-11.0) 10^3/uL RBC 3.78 L (4.70-6.10) 10^6/uL Hgb 11.0 L (14.0-18.0) g/dL Hct 32.2 L (42.0-54.0) % Plt Count 140 L (150-450) 10^3/uL Neut # (Auto) 7.7 H (1.4-6.5) 10^3/uL Lymph # (Auto) 0.7 L (1.2-3.8) 10^3/uL [place] # (Auto) 0.7 (0.3-0.8) 10^3/uL Eos # (Auto) 0.0 (0.0-0.7) 10^3/uL Baso # (Auto) 0.0 (0.0-0.1) 10^3/uL Comprehensive Metabolic Panel 04/09/25 04/10/25 04/10/25 Range/Units 23:20 01:45 03:00 Sodium 119 L* 130 L (136-145) mmol/L Potassium 5.5 H 3.8 (3.5-5.1) mmol/L Chloride 85 L 92 L (98-107) mmol/L Carbon Dioxide 26.4 26.9 (21.0-32.0) mmol/L BUN 79.0 H* 74.0 H (7.0-18.0) mg/dL Creatinine 2.32 H 2.38 H (0.70-1.30) mg/dL Glucose 853 H* 726 H* 565 H* (74-106) mg/dL Calcium 8.6 8.6 (8.5-10.1) mg/dL AST 41 H (15-37) U/L ALT 49 (16-63) U/L Alkaline Phosphatase 159 H (46-116) U/L Total Protein 6.9 (6.4-8.2) g/dL Albumin 3.2 L (3.4-5.0) g/dL 04/10/25 04/10/25 Range/Units 04:15 10:54 Sodium 131 L 133 L (136-145) mmol/L Potassium 3.5 3.8 (3.5-5.1) mmol/L Chloride 96 L 96 L (98-107) mmol/L Carbon Dioxide 25.3 28.3 (21.0-32.0) mmol/L BUN 69.0 H 71.0 H (7.0-18.0) mg/dL Creatinine 1.98 H 1.76 H (0.70-1.30) mg/dL Glucose 419 H 58 L (74-106) mg/dL Calcium 7.7 L 8.8 (8.5-10.1) mg/dL AST 44 H (15-37) U/L ALT 43 (16-63) U/L Alkaline Phosphatase 130 H (46-116) U/L Total Protein 6.5 (6.4-8.2) g/dL Albumin 3.0 L (3.4-5.0) g/dL Intake and Output 04/10/25 04/10/25 04/10/25 07:59 15:59 23:59 Intake Total 4100.000 / 4100.000 Output Total 2300 / 2300 800 / 800 Balance 1800.000 / 1800.000 -800 / -800 Intake: Oral 1999 / 1999 IV 2100.000 / 2100.000 0.9 % Sodium Chloride 1,000 ml 2000.000 / 1999.000 @ 125 mls/hr IV .Q8H ONE Rx#: [id number] Insulin Regular in 0.9 % NaCl 100 / 100 100 unit In 100 ml @ 5 UNIT/KG/ HR 430.915 mls/hr IV TITR ONE Rx#:[id number] Output: Urine Amount (Catheter) 2300 / 2300 800 / 800 Urethral 2300 / 2300 800 / 800 Other: CBI Fluid - Amount Instilled Urethral 600 Other Intake Source Saline Solution Weight 60.6 kg Imaging and Cardiology Echo: report reviewed (ECHO 01/21/2024: EF 30-35%, grade II DD, mod MR, mild to mod TR, RVSP 49) Assessment and Plan Assessment and Plan (1) Hydronephrosis: (2) Acute kidney injury: (3) Urinary retention: (4) BPH (benign prostatic hyperplasia): (5) Elevated troponin: (6) H/O heart artery stent: (7) CAD (coronary artery disease): Qualifiers: Coronary Disease-Associated Artery/Lesion type: [place] artery [place] vs. 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 -Pt has had no c/o of chest pain prior or during current admission. He also denies dyspnea. -Suspect demand ischemia in the setting of uncontrolled HTN, DENISHA, etc. -Recommend medical management at this time with aspirin 81mg daily, statin, and beta sarah. -If ECHO shows no significant changes compared to last years ECHO, pt to follow-up with his primary material reprocessing associate within 4 weeks after discharge. #Chronic HFrEF -EF 30-35% per 01/2024 ECHO -Follow-up ECHO done, pending results. -He appears compensated on exam. Noted to have anasarca on his CT abd/pelvis which is likely related to his DENISHA, hydronephrosis, and low albumin levels. -Pending ECHO results, clinical course and renal function, consider some diuresis if needed. -GDMT: once renal function normalizes, resume Farxiga. Primary material reprocessing associate recently stopped spironolactone - pt is unsure why. #HTN -Better controlled, continue current medications. #Permanent pacemaker -Sensing/pacing appropriately per EKG Please call if any further questions or concerns. Thank you. Rachel Kc APRN-[facility] Cardiovascular Medicine
[2025-04-10] MEDS: LIPASE PROTEASE AMYLASE 2 EACH PO (17:24)
[2025-04-10] MEDS: ATORVASTATIN CALCIUM 40 MG TABLET PO (23:00)
[2025-04-11] VITALS (17 sets, daily range): BP systolic 107–137; BP diastolic 60–80; PULSE 60–69; TEMP 36.4–36.8; O2SAT 90–93
[2025-04-11 04:07] LABS: PSA, Free 0.18 ng/mL
[2025-04-11 06:27] LABS: Hematocrit 29.3 % (42.0-54.0); Hemoglobin 10.5 g/dL (14.0-18.0); Mean Corpuscular HGB Conc 35.8 g/dL (29.9-35.2); Mean Corpuscular Hemoglobin 29.5 pg (25.9-34.0); Mean Corpuscular Volume 82.3 fL (80.0-94.0); Platelet Count 148 10^3/uL (150-450); Red Blood Count 3.56 10^6/uL (4.70-6.10); White Blood Count 9.9 10^3/uL (4.0-11.0)
[2025-04-11 06:49] LABS: Alanine Aminotransferase 37 U/L (16-63); Albumin Globulin Ratio 0.8; Albumin Level 2.8 g/dL (3.4-5.0); Alkaline Phosphatase 123 U/L (46-116); Anion Gap 11.3; Aspartate Amino Transferase 48 U/L (15-37); Blood Urea Nitrogen 72.0 mg/dL (7.0-18.0); Calcium 8.6 mg/dL (8.5-10.1); Carbon Dioxide 27.7 mmol/L (21.0-32.0); Chloride 99 mmol/L (98-107); Estimated GFR (African America 45 (>=60 mL/min/1.73m^2); Estimated GFR (Non-African Ame 37 (>=60 mL/min/1.73m^2); Globulin 3.4 g/dL; Glucose 62 mg/dL (74-106); Magnesium 1.8 mg/dL (1.8-2.4); Potassium 4.0 mmol/L (3.5-5.1); Sodium 134 mmol/L (136-145); Total Protein 6.2 g/dL (6.4-8.2)
--- NOTE | 2025-04-11 08:25 | CM.NOTE ---
Rounds made with Dr. Holm, no discharge today. SW will speak with again today regarding discharge planning and skilled needs. Spoke with RN, brought in Dexcom monitor and RN was able to get monitor on pt and phone set up to read Dexcom.
[2025-04-11] MEDS: METOPROLOL SUCCINATE 25 MG TAB.ER.24H 12.5 MG PO ×2 (08:32→21:56)
[2025-04-11] MEDS: TAMSULOSIN HCL 0.4 MG CAPSULE PO (08:32)
[2025-04-11] MEDS: ASPIRIN 81 MG TAB.CHEW PO (08:32)
[2025-04-11] MEDS: INSULIN GLARGINE 300 UNIT/3 ML INSULN.PEN 15 UNIT SQ (08:33)
[2025-04-11] MEDS: LIPASE PROTEASE AMYLASE 2 EACH PO ×3 (08:33→16:32)
[2025-04-11] MEDS: PAROXETINE HCL 20 MG TABLET 40 MG PO (08:33)
[2025-04-11] MEDS: INSULIN ASPART 300 UNIT/3 ML PEN SUBQ ×2 (11:25→21:59)
[2025-04-11] MEDS: ENOXAPARIN SODIUM 60 MG/0.6 ML SYRINGE SUBQ (11:29)
--- NOTE | 2025-04-11 12:27 | PM.PN ---
Progress Note: Subjective Subjective Interval history: Patient is feeling fairly well. Uneventful night. No chest pain. No abdominal pain. No nausea or vomiting. Exam Narrative Exam Narrative: [pt is awake and alert. oriented to place, time and person HEENT: [place] conjunctiva and NL buccal mucosa Neck: Supple, no tenderness Endocrine: No Thyromegaly. Vascular: No JVD or carotid bruit. Lymphatic: No cervical lymphadenopathy. Chest: CTA no DTP. Heart RRR, no extra sound or murmur. Abd: Soft, no tenderness, no rebound and no rigidity. Increase abd girth therefore clinically I could not exclude the possibility of intra abd mass or organomegaly. LE: No cyanosis or clubbing, no varices or edema. Neuro: A A O. Nl speech, comprehension and attention. Nl and symetrical motor and tone examination through out. Muscle wasting and atrophy []] Constitutional Vital Signs, click to edit/add: Last Vital Signs Temp 98.1 F 04/11/25 11:30 Pulse 60 04/11/25 11:58 Resp 18 04/11/25 11:30 BP 125/80 04/11/25 11:30 Pulse Ox 92 L 04/11/25 11:30 O2 Del Method Room Air 04/11/25 11:30 Progress Note: Objective Labs Labs: Short CBC 04/11/25 Range/Units 05:35 WBC 9.9 (4.0-11.0) 10^3/uL Hgb 10.5 L (14.0-18.0) g/dL Hct 29.3 L (42.0-54.0) % Plt Count 148 L (150-450) 10^3/uL BMP 04/11/25 05:35 Sodium 134 L Potassium 4.0 Chloride 99 Carbon Dioxide 27.7 BUN 72.0 H Creatinine 1.73 H Glucose 62 L Calcium 8.6 Liver Function 04/11/25 Range/Units 05:35 Total Bilirubin 0.3 (0.2-1.0) mg/dL AST 48 H (15-37) U/L ALT 37 (16-63) U/L Alkaline Phosphatase 123 H (46-116) U/L Albumin 2.8 L (3.4-5.0) g/dL Progress Note: A&P Assessment and Plan (1) Hydronephrosis: (2) Acute kidney injury: (3) Urinary retention: (4) BPH (benign prostatic hyperplasia): (5) Elevated troponin: (6) H/O heart artery stent: (7) CAD (coronary artery disease): Qualifiers: Coronary Disease-Associated Artery/Lesion type: [place] artery [place] vs. transplanted heart: [place] heart Associated angina: without angina Qualified Code(s): I25.10 - Atherosclerotic heart disease of [place] coronary artery without angina pectoris Plan Severe hyperglycemia at 850 associated with pseudohyponatremia Patient stated that his pump is not working or ran out of insulin. Likely patient does not have DKA. Patient was started on insulin drip in the emergency room department which was subsequently discontinued. Patient is on sliding scale coverage at this time. A1c is 14. Patient seems to be having trouble with the insulin pump. He may not comprehend the complexity of the pump. Keep him on insulin pen injection. Gave him a long-acting insulin as well as sliding scale. Titrate to keep blood sugar between 125 and 180. Elevated troponin. Patient has chronic elevation of the troponin. Ranging between 82 and 210. Patient denies any chest pain. EKG showed paced rhythm. Likely caused by severe hyperglycemia and hypertensive urgency. Requested echocardiogram which showed ejection fraction of 35%. Patient is known to have cardiomyopathy. Previously his ejection fraction was lower than before. Resume home beta-sarah. 1 dose of Plavix. Start patient on aspirin and Lovenox therapeutic dose, dose adjusted for CKD/DENISHA. Discontinue therapeutic dose of Lovenox and Plavix due to history of duodenal ulcer bleed. Cardiac consultation. Patient was seen by cardiology team. Please refer to note for details. No recommendation for intervention or transfer to [facility] or [place]. Defer further needed diagnostic and therapeutic invention as relates to cardiovascular status in the timing of that to cardiology team given their expertise. Patient follows up with a propeller inspector in [place]. Hypertensive urgency likely triggered by severe urinary retention and severe discomfort Resolved continue beta-sarah. Severe urinary retention associated with DENISHA on CKD. Imaging showed bilateral hydronephrosis. Patient is on Flomax at home. Kimble catheter was inserted. Continue IV fluid infusion due to suspected postoperative diuresis. Check PSA. Keep Kimble in for 7 to 10 days and follow-up with urology. Patient may need to have additional urological investigation which may include but not limited to prostate exam, cystoscopy, urodynamic study and others. Patient was seen by Dr. Melchor who is in agreement with the aforementioned plan. Hypomagnesemia Magnesium supplementation Functional cognitive impairment Working with case management, social security specialist, PT OT to determine best disposition place for him. Likely short-term skilled followed by home health care. Anemia, no evidence of acute blood loss. I reviewed his [facility] record. Patient had duodenal ulcer bleed last year Avoid therapeutic dose of anticoagulation. Patient will likely require to have recurrent anemia workup to be done in the outpatient setting to be handled by PCP in collaboration with other needed outpatient providers. This may include but not limited to EGD, colonoscopy, referral to see hematology and other needed age-appropriate cancer screening. Chronic, subacute medical conditions not listed above, abnormal labs and imaging. These would need to be addressed. Could be addressed later on or in the outpatient setting by PCP collaboration with other needed outpatient providers when time and condition are appropriate. Urinary Catheter Management Urinary Catheter Management Urethral: Cath placed during this visit: yes Urethral indwelling: No Insertion date: 04/10/25 Insertion time: 01:32
[2025-04-11] MEDS: POLYETHYLENE GLYCOL 3350 17 GM POWDER PACKET PO (12:43)
[2025-04-11] MEDS: PANTOPRAZOLE SODIUM 40 MG TABLET.DR PO (12:43)
[2025-04-11] MEDS: SENNOSIDES/DOCUSATE SODIUM 1 TAB TABLET 2 TAB PO (12:43)
--- NOTE | 2025-04-11 12:50 | SWNOTE1 ---
SW called and spoke with pt's , Latosha, to discuss rehab. Pt's in agreement that he does need it. Pt's asked where it would be. SW advsied it can be at any facility. Pt and live in [place]. SW let her know of the 2 facilities in [place], [facility] and [facility]. She asked if pt agreed, SW advised that SW has not been in to see him yet today, but will go speak with him. She is in agreement with plan as long as pt is. She stated pt will likely want [facility] just from knowing friends who have been there. SW to speak with pt.
--- NOTE | 2025-04-11 13:21 | SWNOTE1 ---
SW stopped in and spoke with pt. Pt was sleeping, but woke right up to speak with SW. SW advsied pt that SW has spoke to his in regards to discharge planning. SW let pt know recommendation of SNF at discharge for a short time to get stronger. SW let pt know that there is 2 facilities in [place]. [facility] and [facility]. SW can also look outside of [place]. Pt voiced he may get lost in [facility]. SW let him know that he would go to the rehab part of the [facility]. Pt is in agreement with going to rehab for a short time to get strength built back up. He voiced he does not have a preference. SW called Latosha, pt's , back and let her know pt is agreeable. Pt's would like SW to look in to [facility]. Referral sent to [facility]. Referral included face sheet, ED note, H&P, provider notes, case management report, nursing notes, diagnostic imaging, med list, and PT/OT notes.
--- NOTE | 2025-04-11 13:27 | SWNOTE1 ---
SW also faxed Urology consult, Cardiology consult, and Medicare card to Seamus and Raina at [facility].
[2025-04-11] MEDS: ATORVASTATIN CALCIUM 40 MG TABLET PO (21:56)
[2025-04-12] VITALS (20 sets, daily range): BP systolic 115–126; BP diastolic 55–71; PULSE 59–100; TEMP 36.4–37; O2SAT 93–98
[2025-04-12 06:04] LABS: Alanine Aminotransferase 37 U/L (16-63); Albumin Globulin Ratio 0.8; Albumin Level 2.6 g/dL (3.4-5.0); Alkaline Phosphatase 118 U/L (46-116); Anion Gap 10.7; Aspartate Amino Transferase 47 U/L (15-37); Blood Urea Nitrogen 58.0 mg/dL (7.0-18.0); Calcium 8.2 mg/dL (8.5-10.1); Carbon Dioxide 28.2 mmol/L (21.0-32.0); Chloride 101 mmol/L (98-107); Estimated GFR (African America 56 (>=60 mL/min/1.73m^2); Estimated GFR (Non-African Ame 46 (>=60 mL/min/1.73m^2); Globulin 3.2 g/dL; Glucose 127 mg/dL (74-106); Potassium 3.9 mmol/L (3.5-5.1); Sodium 136 mmol/L (136-145); Total Protein 5.8 g/dL (6.4-8.2)
--- NOTE | 2025-04-12 09:01 | SWNOTE1 ---
SW received an email from Loretta at [facility] and they can accept pt once he is ready for discharge.
[2025-04-12] MEDS: ASPIRIN 81 MG TAB.CHEW PO (09:03)
[2025-04-12] MEDS: TAMSULOSIN HCL 0.4 MG CAPSULE PO (09:03)
[2025-04-12] MEDS: PAROXETINE HCL 20 MG TABLET 40 MG PO (09:03)
[2025-04-12] MEDS: METOPROLOL SUCCINATE 25 MG TAB.ER.24H 12.5 MG PO ×2 (09:03→21:48)
[2025-04-12] MEDS: PANTOPRAZOLE SODIUM 40 MG TABLET.DR PO (09:03)
[2025-04-12] MEDS: LIPASE PROTEASE AMYLASE 2 EACH PO ×3 (09:06→16:46)
[2025-04-12] MEDS: INSULIN GLARGINE 300 UNIT/3 ML INSULN.PEN 15 UNIT SQ (09:06)
[2025-04-12] MEDS: ENOXAPARIN SODIUM 30 MG/0.3 ML SYRINGE SUBQ (11:49)
[2025-04-12] MEDS: INSULIN ASPART 300 UNIT/3 ML PEN SUBQ ×3 (11:49→21:49)
--- NOTE | 2025-04-12 13:34 | PM.PN ---
Progress Note: Subjective Subjective Interval history: Patient is feeling fairly well. Uneventful night. No chest pain. No abdominal pain. No nausea or vomiting. Exam Narrative Exam Narrative: [pt is awake and alert. oriented to place, time and person HEENT: [place] conjunctiva and NL buccal mucosa Neck: Supple, no tenderness Endocrine: No Thyromegaly. Vascular: No JVD or carotid bruit. Lymphatic: No cervical lymphadenopathy. Chest: CTA no DTP. Heart RRR, no extra sound or murmur. Abd: Soft, no tenderness, no rebound and no rigidity. Increase abd girth therefore clinically I could not exclude the possibility of intra abd mass or organomegaly. LE: No cyanosis or clubbing, no varices or edema. Neuro: A A O. Nl speech, comprehension and attention. Nl and symetrical motor and tone examination through out. Muscle wasting and atrophy []] Constitutional Vital Signs, click to edit/add: Last Vital Signs Temp 97.5 F L 04/12/25 08:30 Pulse 63 04/12/25 12:00 Resp 18 04/12/25 08:30 BP 124/64 04/12/25 08:30 Pulse Ox 98 04/12/25 08:30 O2 Del Method Room Air 04/12/25 08:30 O2 Flow Rate 40 04/12/25 02:32 FiO2 50 04/12/25 02:32 Progress Note: Objective Labs Labs: [facility] 04/12/25 05:21 Sodium 136 Potassium 3.9 Chloride 101 Carbon Dioxide 28.2 BUN 58.0 H Creatinine 1.45 H Glucose 127 H Calcium 8.2 L Liver Function 04/12/25 Range/Units 05:21 Total Bilirubin 0.3 (0.2-1.0) mg/dL AST 47 H (15-37) U/L ALT 37 (16-63) U/L Alkaline Phosphatase 118 H (46-116) U/L Albumin 2.6 L (3.4-5.0) g/dL Progress Note: A&P Assessment and Plan (1) Hydronephrosis: (2) Acute kidney injury: (3) Urinary retention: (4) BPH (benign prostatic hyperplasia): (5) Elevated troponin: (6) H/O heart artery stent: (7) CAD (coronary artery disease): Qualifiers: Coronary Disease-Associated Artery/Lesion type: [place] artery [place] vs. transplanted heart: [place] heart Associated angina: without angina Qualified Code(s): I25.10 - Atherosclerotic heart disease of [place] coronary artery without angina pectoris Plan Severe hyperglycemia at 850 associated with pseudohyponatremia Patient stated that his pump is not working or ran out of insulin. Likely patient does not have DKA. Patient was started on insulin drip in the emergency room department which was subsequently discontinued. Patient is on sliding scale coverage at this time. A1c is 14. Patient seems to be having trouble with the insulin pump. He may not comprehend the complexity of the pump. Keep him on insulin pen injection. Continue long-acting insulin as well as sliding scale. Titrate to keep blood sugar between 125 and 180. Blood sugar has been stable over the last 48 hours Elevated troponin. Patient has chronic elevation of the troponin. Ranging between 82 and 210. Troponin is trending down. Patient denies any chest pain. EKG showed paced rhythm. Likely caused by severe hyperglycemia and hypertensive urgency. Requested echocardiogram which showed ejection fraction of 35%. Patient is known to have cardiomyopathy. Previously his ejection fraction was lower than before. Resume home beta-sarah. 1 dose of Plavix. Start patient on aspirin and Lovenox therapeutic dose, dose adjusted for CKD/DENISHA. Discontinue therapeutic dose of Lovenox and Plavix due to history of duodenal ulcer bleed. Cardiac consultation. Patient was seen by cardiology team. Please refer to note for details. No recommendation for intervention or transfer to [facility] or [place]. Defer further needed diagnostic and therapeutic invention as relates to cardiovascular status in the timing of that to cardiology team given their expertise. Patient follows up with a information technology consultant in [place]. Hypertensive urgency likely triggered by severe urinary retention and severe discomfort Resolved continue beta-sarah. Blood pressure has been stable for 48 hours Severe urinary retention associated with DENISHA on CKD. Imaging showed bilateral hydronephrosis. Patient is on Flomax at home. Kimble catheter was inserted. Continue IV fluid infusion due to suspected postoperative diuresis. Check PSA. PSA is normal. Keep Kimble in for 7 to 10 days and follow-up with urology. Patient may need to have additional urological investigation which may include but not limited to prostate exam, cystoscopy, urodynamic study and others. Patient was seen by Dr. Melchor who is in agreement with the aforementioned plan. Hypomagnesemia Magnesium supplementation Functional cognitive impairment Working with case management, delinquency prevention social worker, PT OT to determine best disposition place for him. Likely short-term skilled followed by home health care. Anemia, no evidence of acute blood loss. I reviewed his [facility] record. Patient had duodenal ulcer bleed last year Avoid therapeutic dose of anticoagulation. Patient will likely require to have recurrent anemia workup to be done in the outpatient setting to be handled by PCP in collaboration with other needed outpatient providers. This may include but not limited to EGD, colonoscopy, referral to see hematology and other needed age-appropriate cancer screening. Chronic, subacute medical conditions not listed above, abnormal labs and imaging. These would need to be addressed. Could be addressed later on or in the outpatient setting by PCP collaboration with other needed outpatient providers when time and condition are appropriate. I discussed case with case management. Urinary Catheter Management Urinary Catheter Management Urethral: Cath placed during this visit: yes Urethral indwelling: No Insertion date: 04/10/25 Insertion time: 01:32
--- NOTE | 2025-04-12 14:00 | CM.NOTE ---
[address] Holm for rounds. Patient agreeable skilled rehab at discharge potentially [place]. Earliest Discharge is 04/13.
--- NOTE | 2025-04-12 14:04 | SWNOTE1 ---
VANE faxed updates to Loretta at [facility], updates included PT/OT, physician notes, vitals, and nursing notes.
[2025-04-12] MEDS: ATORVASTATIN CALCIUM 40 MG TABLET PO (21:48)
[2025-04-13] VITALS (9 sets, daily range): BP systolic 124–145; BP diastolic 63–80; PULSE 60–63; TEMP 36.4–36.6; O2SAT 92–94
[2025-04-13 06:42] LABS: Anion Gap 12.8; Blood Urea Nitrogen 47.0 mg/dL (7.0-18.0); Calcium 8.0 mg/dL (8.5-10.1); Carbon Dioxide 26.0 mmol/L (21.0-32.0); Chloride 100 mmol/L (98-107); Estimated GFR (African America 55 (>=60 mL/min/1.73m^2); Estimated GFR (Non-African Ame 45 (>=60 mL/min/1.73m^2); Glucose 181 mg/dL (74-106); Potassium 3.8 mmol/L (3.5-5.1); Sodium 135 mmol/L (136-145)
--- NOTE | 2025-04-13 08:20 | CM.NOTE ---
Rounds made with Dr. Holm, pt will discharge to [facility] today for skilled therapy. Pt verbalizes understanding. SW will call [facility] and set up transportation.
[2025-04-13] MEDS: INSULIN ASPART 300 UNIT/3 ML PEN SUBQ ×2 (08:29→11:46)
[2025-04-13] MEDS: LIPASE PROTEASE AMYLASE 2 EACH PO ×2 (08:30→11:51)
[2025-04-13] MEDS: INSULIN GLARGINE 300 UNIT/3 ML INSULN.PEN 15 UNIT SQ (08:30)
--- NOTE | 2025-04-13 08:40 | CM.NOTE ---
Pt will need to f/u with urology, cardiology and program support assistant. Pt verbalizes understanding.
[2025-04-13] MEDS: ASPIRIN 81 MG TAB.CHEW PO (09:00)
[2025-04-13] MEDS: PANTOPRAZOLE SODIUM 40 MG TABLET.DR PO (09:00)
[2025-04-13] MEDS: TAMSULOSIN HCL 0.4 MG CAPSULE PO (09:00)
[2025-04-13] MEDS: METOPROLOL SUCCINATE 25 MG TAB.ER.24H 12.5 MG PO (09:00)
[2025-04-13] MEDS: PAROXETINE HCL 20 MG TABLET 40 MG PO (09:01)
--- NOTE | 2025-04-13 10:00 | CM.NOTE ---
CRF completed and signed by Dr. Holm for skilled facility. SW will set up transport and notify facility.
--- NOTE | 2025-04-13 11:17 | PM.DS1 ---
DS: Providers Provider Date of admission: 04/10/25 04:55 Primary care physician: MARIE TEJEDA Consults: 04/10/25 Consult to Dietitian Routine Reason for consultation: poor appetite Has provider been notified: No Occupational Therapy Eval and Treat Routine Reason for consultation: WEAKNESS Has provider been notified: Yes Physical Therapy Eval and Treat Routine Reason for consultation: WEAKNESS Has provider been notified: Yes 04/10/25 05:14 Consult to Cardiology Routine Reason for consultation: Elevated Trop 04/10/25 13:28 Consult to Urology Routine Consulting Provider: Tristan Melchor Reason for consultation: Hydronephrosis, urinary retention DS: Diagnosis Discharge Diagnosis (1) Hydronephrosis: (2) Acute kidney injury: (3) Urinary retention: (4) BPH (benign prostatic hyperplasia): (5) Elevated troponin: (6) H/O heart artery stent: (7) CAD (coronary artery disease): Qualifiers: Coronary Disease-Associated Artery/Lesion type: [place] artery [place] vs. transplanted heart: [place] heart Associated angina: without angina Qualified Code(s): I25.10 - Atherosclerotic heart disease of [place] coronary artery without angina pectoris Plan As listed above, below and others that are not listed DS: Summary Hospital Course Hospital Course: Mr. Roche is an 89-year-old gentleman who came in as instructed by his individualized education plan aide due to high blood sugar above 600. Severe hyperglycemia at 850 associated with dehydration, volume loss and pseudohyponatremia. No DKA Patient stated that his pump is not working or ran out of insulin. Patient was started on insulin drip in the emergency room department which was subsequently discontinued. Patient is on sliding scale coverage at this time. A1c is 14. Patient seems to be having trouble with the insulin pump. He may not comprehend the complexity of the pump. Keep him on insulin pen injection. Continue long-acting insulin as well as sliding scale. Titrate to keep blood sugar between 125 and 180. Blood sugar has been stable over the last 48 hours A1c is 14. Patient was on 70 units of insulin at home. Currently his blood pressure is stable with only 15 units of long-acting insulin as well as sliding scale. I doubt that the patient had been taking his insulin appropriately at home. Elevated troponin. Cardiomyopathy. EF is 35-40% Patient has chronic elevation of the troponin. Ranging between 82 and 210. Troponin is trending down. Patient denies any chest pain. EKG showed paced rhythm. Likely caused by severe hyperglycemia and hypertensive urgency. Requested echocardiogram which showed ejection fraction of 35%. Patient is known to have cardiomyopathy. Previously his ejection fraction was lower than before. Resumed home beta-sarah. Resumed aspirin. Troponin is trending down. No chest pain. 1 dose of Plavix. Start patient on aspirin and Lovenox therapeutic dose, dose adjusted for CKD/DENISHA. Discontinue therapeutic dose of Lovenox and Plavix due to history of duodenal ulcer bleed. Cardiac consultation. Patient was seen by cardiology team. Please refer to note for details. No recommendation for intervention or transfer to [facility] or [place]. Defer further needed diagnostic and therapeutic invention as relates to cardiovascular status in the timing of that to cardiology team given their expertise. Patient follows up with a regional flatbed truck driver in [place] Dr. Anat Johnson Patient is on beta-sarah and spironolactone. I added losartan 25 mg daily. Continue to monitor his kidney function. If his kidney function continues to be stable, consider switching ARB to ARNI Consider the initiation of SGLT 1 by his regional flatbed truck driver in the outpatient setting Hypertensive urgency likely triggered by severe urinary retention and severe discomfort Resolved continue beta-sarah. Blood pressure has been stable for 72 hours Severe urinary retention associated with DENISHA on CKD. Imaging showed bilateral hydronephrosis. Patient is on Flomax at home. Kimble catheter was inserted. Continue IV fluid infusion due to suspected postoperative diuresis. Check PSA. PSA is normal. Keep Kimble in for 7 to 10 days and follow-up with urology. Patient may need to have additional urological investigation which may include but not limited to prostate exam, cystoscopy, urodynamic study and others. Patient was seen by Dr. Melchor who is in agreement with the aforementioned plan. Patient will be discharged to the skilled nursing with Kimble catheter. Hypomagnesemia Magnesium supplementation Functional cognitive impairment Working with case management, social sciences instructor, PT OT to determine best disposition place for him. Likely short-term skilled followed by home health care. Patient will be discharged today to a [facility] facility. Anemia, no evidence of acute blood loss. I reviewed his [facility] record. Patient had duodenal ulcer bleed last year Avoid therapeutic dose of anticoagulation. Continue PPI Patient will likely require to have recurrent anemia workup to be done in the outpatient setting to be handled by PCP in collaboration with other needed outpatient providers. This may include but not limited to EGD, colonoscopy, referral to see hematology and other needed age-appropriate cancer screening. Chronic, subacute medical conditions not listed above, abnormal labs and imaging. These would need to be addressed. Could be addressed later on or in the outpatient setting by PCP collaboration with other needed outpatient providers when time and condition are appropriate. Patient has multiple complex medical issues as listed above and others that are not listed. All appear to be stable. I do not have any clear or strong clinical justification to extend inpatient hospitalization. Patient however will require close and frequent monitoring as well as additional work-up, investigation and therapeutic intervention that could take place from this point on post discharge. That is to prevent relapse, decompensation, rehospitalization and other medical implications.. I instructed patient to ask her primary care doctor to obtain [facility] record entirely to address abnormalities seen on labs and imaging that I have and have not addressed during this hospitalization, follow-up on pending blood work, imaging and pathology is if available and to follow-up on needed medical care in the outpatient setting. Time Spent with Patient Time attestation: Total time spent providing and/or coordinating discharge services: Exam Narrative Exam Narrative: [pt is awake and alert. oriented to place, time and person HEENT: [place] conjunctiva and NL buccal mucosa Neck: Supple, no tenderness Endocrine: No Thyromegaly. Vascular: No JVD or carotid bruit. Lymphatic: No cervical lymphadenopathy. Chest: CTA no DTP. Heart RRR, no extra sound or murmur. Abd: Soft, no tenderness, no rebound and no rigidity. Increase abd girth therefore clinically I could not exclude the possibility of intra abd mass or organomegaly. LE: No cyanosis or clubbing, no varices or edema. Neuro: A A O. Nl speech, comprehension and attention. Nl and symetrical motor and tone examination through out. Muscle wasting and atrophy []] Constitutional Vital Signs, click to edit/add: Last Vital Signs Temp 97.6 F 04/13/25 08:36 Pulse 60 04/13/25 09:55 Resp 16 04/13/25 08:36 BP 124/63 04/13/25 08:36 Pulse Ox 92 L 04/13/25 08:36 O2 Del Method Room Air 04/13/25 08:36 O2 Flow Rate 40 04/12/25 02:32 FiO2 50 04/12/25 02:32 DS: Data Data Completed and Pending Labs on day of discharge: Labs from last 24 hours 04/13/25 04/12/25 04/12/25 05:52 21:48 16:39 Sodium 135 L Potassium 3.8 Chloride 100 Carbon Dioxide 26.0 Anion Gap 12.8 BUN 47.0 H Creatinine 1.47 H Est GFR ( Amer) 55 L Est GFR (Non-Af Amer) 45 L BUN/Creatinine Ratio 32.0 Glucose 181 H Calcium 8.0 L POC Glucose 141 H 217 H 04/12/25 11:06 Sodium Potassium Chloride Carbon Dioxide Anion Gap BUN Creatinine Est GFR ( Amer) Est GFR (Non-Af Amer) BUN/Creatinine Ratio Glucose Calcium POC Glucose 291 H Discharge Plan Discharge Disposition: Xfer SNF Condition: Fair Discharge Medications: New sennosides-docusate sodium 8.6-50 mg Tablet 2 tab PO QD Qty: 0 0RF tamsulosin 0.4 mg Capsule 0.4 mg PO QD Qty: 0 0RF pantoprazole 40 mg Tablet,Delayed Release (Dr/Ec) 40 mg PO DAILY Qty: 0 0RF aspirin 81 mg Tablet,Chewable 81 mg PO QD Qty: 0 0RF Glucagon Emergency Kit (human) 1 mg Recon Soln 1 mg IV Q15M PRN (Reason: Hypoglycemia) Qty: 0 0RF insulin aspart U-100 [Novolog FlexPen U-100 Insulin] 100 unit/mL (3 mL) Insulin Pen 3 - 15 unit subcut ACHS Qty: 0 0RF insulin glargine [Lantus Solostar U-100 Insulin] 100 unit/mL (3 mL) Insulin Pen 15 unit SQ QD Qty: 0 0RF Insta-Glucose (with dextrin) 24 gram/31 gram Gel 31 g PO Q15M PRN (Reason: Hypoglycemia) Qty: 0 0RF losartan 25 mg tablet 25 mg PO DAILY Qty: 30 0RF Continued Creon 24,000-76,000 -120,000 unit capsule,delayed release(DR/EC) 2 cap PO TIDWM Rx Instructions: AND 1 CAPSULE WITH SNACKS DIRECTED nitroglycerin 0.4 mg tablet, sublingual 0.4 mg sublingual Q5M PRN (Reason: chest pain) spironolactone 25 mg tablet 25 mg PO .qd atorvastatin 40 mg tablet 40 mg PO .qhs insulin aspart U-100 [Novolog FlexPen U-100 Insulin] 100 unit/mL (3 mL) insulin pen 4 unit SUBCUT TIDWM (DME) Dexcom G7 Sensor Device MISCELLANEOUS (DME) Omnipod 5 G6-G7 Pods (Gen 5) Cartridge SUBCUT Changed paroxetine HCl 40 mg tablet 20 mg PO .qd Qty: 0 0RF metoprolol succinate 25 mg tablet extended release 24 hr 25 mg PO DAILY Qty: 0 0RF Discontinued insulin aspart U-100 100 unit/mL solution 75 unit continuous subcutaneous infusion Q24H Rx Instructions: ADMINISTER PER PUMP (MAX DAILY 75 UNITS) insulin glargine [Lantus Solostar U-100 Insulin] 100 unit/mL (3 mL) insulin pen 12 unit SUBCUT DAILY Print Language: Ukrainian Activity Restrictions/Additional Instructions: I may not have addressed or treated all of your medical illnesses or the abnormal blood work or imaging studies during this hospitalization. Please ask your primary care provider to obtain [facility] records entirely to follow up on all of the abnormal physical, laboratory, and imaging findings that I have not addressed. Please return back to the emergency room or seek medical attention if your symptoms worsen or return. For skilled nursing providers: Fall risk Keep Kimble in until patient sees Dr. Melchor on 04/18. Recommend CBC and BMP weekly for 3 weeks Check blood sugar 3 times a day before meals. Communicate with skilled nursing provider if your blood sugar is under 100 or above 300 on 2 consecutive checks. Communicate with skilled nursing provider if you have any questions about your diabetes medications. Signs of a low blood sugar include sweating, racing heart, dizziness and/or weakness. Check your blood sugar if you have any of the symptoms. Discharging you from [facility] does not mean that your medical care ends here and now. You may still need additional monitoring, work up, investigation, and treatment plan to be handled from this point on by out patient providers including your primary care provider and specialists. For any medication question, please contact your retail pharmacist or your primary care provider. Thank you. 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 Melchor [facility], [address] [place] [address] [address], [place] [phone] . 04/19 @ 8:30am with Dr. Matthew Alvarado [facility] [phone] Wed. 04/25 @ 2:20pm with [facility] at [facility] [phone] Keep previously scheduled appt. at the end of April with Endocrinology
--- NOTE | 2025-04-13 11:52 | SWNOTE1 ---
Pt is ready for discharge today. Pt will be going to [facility]. VANE faxed over dc med rec to Raina at [facility]. [facility] and [facility] had no availability for transport. VANE called and spoke with pt's , Latosha. She is able and willing to transport. She will be here at 1:00. VANE notified pt's nurse and [facility] of time. VANE took packet and CRF to nurses station. VANE to complete [facility] 7000 online.
--- NOTE | 2025-04-13 12:00 | PT.DAILY ---
Physical Therapy Daily Note PT Daily Note/Assess Start: 04/11/25 11:33 Freq: Status: Active Protocol: Document 04/13/25 11:52 [id number] (Rec: 04/13/25 12:00 [id number]) Physical Therapy Daily Note/Assessment Time In/Time Out Time In 11:20 Time Out 11:35 Pain In Pain Level 0 Pain Out Pain Level 0 Subjective Subjective Patient received supine in bed. Patient states he was just thinking about getting and would like PT to help. Therapeutic Activity Time Therapeutic Activity 15 Minutes (minutes) Therapeutic Activity 1 Units Therapeutic Activity Treatment Bed Mobility Ability Contact Guard Assist Chair Transfer Contact Guard Assist Ability Therapeutic Activity Bed mobility: supine to L sit with use of bedrail is Comments CGA +1. Patient is able to sit EOB w/o UE support. Gait belt donned. Transfer: sit to stand to 2WW is CGA +1. Verbal cues for safe hand placement on bed to push up. Patient reports slight dizziness once in standing. Patient stood at bedside ~45 seconds and reports he is okay to walk. Patient ambulated ~80 feet x 1 with 2WW w/ CGA +1. Patient returned to chair at bedside with chair alarm engaged. Patient performed MELVA LE isometrics and antigravity ther ex at 20 reps for LE strengthening to improve walking and functional mobility with ADL's. Patient leg elevated and covered with blanket, CBWR and all needs met. Total Physical Therapy Time Total Therapy 15 Minutes Total Physical 1 Therapy Units Summary Daily Note Summary Patient experiences unsteady balance due to dizziness with functional transfers from sit to stand. Patient demonstrates increased ambulation distance this date. Patient verbalizes fatigue post walking. Patient would benefit from skilled placement post DC to address functional deficits for return to PLOF.
--- NOTE | 2025-04-13 12:16 | SWNOTE1 ---
SW completed [employer] 7000 online.
--- NOTE | 2025-04-13 13:50 | PC.NURSE ---
Therapist attempted to call [facility] to give report on patient but was on hold for almost 10 minutes so administrative underwriter was not able to give report.
== END 2025-04-13 13:31 | DRG 638 ==
LOC: ER 04-10 04:51 → MS 04-10 05:11
PROVIDERS: Admitting Provider Internal Medicine; Emergency Provider Emergency Medicine; PCP Internal Medicine; Visit Provider Internal Medicine
DX: E10.65 Type 1 diabetes mellitus with hyperglycemia (principal); E87.1 Hypo-osmolality and hyponatremia; N17.9 Acute kidney failure, unspecified; I16.1 Hypertensive emergency; I43 Cardiomyopathy in diseases classified elsewhere; I13.0 Hypertensive heart and chronic kidney disease with heart failure and stage 1 through stage 4 chronic kidney disease, or unspecified chronic kidney disease; I50.22 Chronic systolic (congestive) heart failure; N13.30 Unspecified hydronephrosis; N18.9 Chronic kidney disease, unspecified; Z79.4 Long term (current) use of insulin; Z96.41 Presence of insulin pump (external) (internal); T85.898A Other specified complication of other internal prosthetic devices, implants and grafts, initial encounter; R79.89 Other specified abnormal findings of blood chemistry; R33.9 Retention of urine, unspecified; I16.0 Hypertensive urgency; E83.42 Hypomagnesemia; D64.9 Anemia, unspecified; I25.10 Atherosclerotic heart disease of native coronary artery without angina pectoris; E10.22 Type 1 diabetes mellitus with diabetic chronic kidney disease; Z87.891 Personal history of nicotine dependence; Z95.5 Presence of coronary angioplasty implant and graft; Z95.0 Presence of cardiac pacemaker; Z90.81 Acquired absence of spleen; Z90.410 Acquired total absence of pancreas; M62.50 Muscle wasting and atrophy, not elsewhere classified, unspecified site; N40.1 Benign prostatic hyperplasia with lower urinary tract symptoms; E86.0 Dehydration; I25.2 Old myocardial infarction; E78.5 Hyperlipidemia, unspecified
CPT/HCPCS: 36415; 51702; 71045; 74176; 80048; 80053; 81001; 82009; 82550; 82800; 82947; 82948; 83036; 83735; 84100; 84153; 84154; 84443; 84484; 85025; 85027; 93005; 93306; 93356; 97161; 97165; 97530; 97535; 99285; J0360; J1644; J1650; J1817; J2270; J2405

== ENCOUNTER 2025-04-18 08:20 | Emergency (ER) | payer MEDICARE, OTHER, SELFPAY ==
[2025-04-18 08:25] VITALS: BP 190/60; PULSE 58; O2SAT 99; BMI 19.0
--- NOTE | 2025-04-18 08:32 | ECG_ITS ---
[facility] Test Date: 2025-04-18 Pat Name: ASHWINI VICKERS Department: Room: - Gender: Male Shirt Maker: : [id number] Requested By: [id number] Order Number: [id number] Reading MD: MELINA ESCAMILLA Measurements Intervals [place] Rate: 64 P: -[id number] KS: -[id number] QRS: 63 QRSD: 102 T: 238 QT: 440 QTc: 449 Interpretive Statements 1210 Atrial fibrillation 2420 RSR (QR) in lead V1/V2, consistent with right ventricular conduction delay [address] depression, [place] 26265 Twave abnormality, possible anterolateral ischemia or digitalis effect 39557 Twave abnormality, possible inferior ischemia or digitalis effect 9150 abnormal ECG Compared to ECG 04/09/2025 23:52:29 ST (T wave) deviation now present Possible ischemia now present Atrial-paced complex(es) or rhythm no longer present Left ventricular hypertrophy no longer present Early repolarization no longer present Electronically Signed On 04-18-2025 11:19:02 EDT by MELINA ESCAMILLA
--- OUTSIDE RECORDS SUMMARY | 2025-04-18 08:39 | XMS_ITS | CCD ---
Author Organization [facility] Care Team Providers Care Roll Builder Name Role Phone Marie Castro Primary Care [...] Care Unavailable ILEANA, DR SALAZAR Consulting Unavailable ILEANA, DR SALAZAR Admitting Unavailable ILEANA, DR SALAZAR Attending Unavailable BALL, DR FRANCO Primary Care Unavailable ILEANA, DR SALAZAR Consulting Unavailable DO Marie Castro Primary Care Provider [phone] JO Rivas Emergency Provider DO Sushant Cordon Admit Provider DO Sushant Cordon Attending Provider MD Ashwini Conrad Other Provider MD Chuck Velasco Other Provider MD Anat Perez Other Provider MD Humberto Diaz Attending Provider [phone] MD Tru Briceno Other Provider MD Fredi Medrano Admit Provider [phone] MD Fredi Medrano Attending Provider [phone] KARIN Rios Other Provider Unavailable KARIN Velazquez Other Provider Unavailable Kev RN Gay Other Provider Unavailable David RN Buffy Other Provider Unavailable KARIN Bentley Other Provider Unavailable KARIN Henry Other Provider Unavailable MD Chris Holm Other Provider PAUL ZavalaN Vivian M Other Provider [phone] DO Samantha Wilson Other Provider MD Eric Major Other Provider DO Sushant Cordon Other Provider MD Audi Gaming Other Provider [phone] MD Cecily Keen Other Provider AMADA [...] Leda Urena Other Provider DO Guevara Mills R Other Provider DO Jose Roberto Felder Other Provider AMADA Marte Other Provider DO Warren Gross Other Provider MD Naylei Jimenez Other Provider AMADA Wolff Other Provider AMADA Pimentel Other Provider [phone] MD Vidya Robert Other Provider MD Howard Burrell Other Provider DO Jeevan John Other Provider AMADA Murdock Other Provider DO Mauricio Drake Other Provider KARIN Morillo Other Provider Unavailable Ashwini Conrad Unavailable Marie Castro DO Primary Care Provider DO Marie Castro Primary Care Provider JO Rivas Emergency Provider [phone] DO Sushant Corodn Admit Provider MD Ashwini Conrad R Other Provider MD Chuck Velasco Other Provider MD Anat Perez Other Provider MD Humberto Diaz Attending Provider [phone] MD Tru Briceno Other Provider MD [...] Provider ZOILA Mccauley-C Marga Westfall Other Provider [phone] MD [...] John Other Provider AMADA Murdock Other Provider [phone] Vidal, DO Martínez Other Provider KARIN Morillo Other Provider Unavailable MD Ashwini Conrad Attending Provider PROVIDER, UNKNOWN Attending Unavailable PROVIDER, UNKNOWN Admitting Unavailable MD Chuck Velasco Other Provider DO Federico Davis Attending Provider MD Herminio Lakhani Attending Provider Anat Perez Unavailable DO Marie Castro Primary Care Provider DO Federico Davis Attending Provider MD Herminio Lakhani Attending Provider MD Audi [employer] Admit Provider MD Alberto Shearer Other Provider MD Beka Roland Other Provider MD Tru Briceno Other Provider MD Vidya Robert Attending Provider MD Audi Gaming Attending Provider MARYANN Flores Attending Provider DO Marie Castro Primary Care Provider [phone] GOVIND DAVIS Attending Unavailable MARIE CASTRO Primary [...] Balderas Admitting Unavailable Arian Balderas Attending Unavailable HERNANDEZ, PERCY FELIX R Admitting Unavailab le HERNANDEZ, PERCY GOSCOTTA R Attending Unavailab KEAGAN Yee Referring Unavailable GOVIND CLEMENT Consulting Unavailable JEEVAN LYNN Consulting Unavailable FATMATA BALDWIN Consulting Unavailable MAGDALENE PARMAR Referring Unavailable DO Marie Castro Primary Care Provider [phone] MD Alberto Shearer Attending Provider MD Paige Luther Emergency Provider DO Sushant Cordon Admit Provider DO Sushant Cordon Attending Provider [phone] MD Manuel Wolff Other Provider [phone] DO Warren Gross Attending Provider DO Marie Castro Primary Care Provider [phone] MD Anat Perez Attending Provider [phone] DO Warren Gross Other Provider MD Anat Perez Referring Provider MD Anat Perez Referring Provider Marie Castro DO Primary Care Provider Marie Castro DO Unavailable Chirag OGLESBY, Patrick Unavailable Mitchel OGLESBY, Andrey Caballero Unavailable [phone] Saúl Davis MD Unavailable MD Abdulaziz Root Attending Provider PATRICK BEARD Attending Unavailable MANUEL WOLFF Referring Unavailable DO Marie Castro Primary Care Provider DO Warren Gross Attending Provider [phone] DO Marie Castro Primary Care Provider MD Anat Perez Attending Provider MD Anat Perez Referring Provider MD Abdulaziz Root Attending Provider Marie Castro DO Primary Care Provider Anat Perez MD Attending Provider Anat Perez MD Referring Provider Abdulaziz Root MD Attending Provider Ivett OGLESBY, Abdulaziz Admit Provider Marie Castro DO Littcarr Primary Care Provider Omid INTER COM INSTALLER, Yuerong Unavailable [phone] Marie Castro DO Primary Care Provider Vargas Reis APRN Emergency Provider [phone] Jose Alfredo Brantley MD Admit Provider Jose Alfredo Brantley MD Attending Provider Gray Higgins MD Other Provider Sushant Cordon DO Admit Provider [phone] Sushant Cordon DO Attending Provider [phone] Stephanie Sheridan DO Other Provider Beto Russo MD Other Provider Thierno Corrales DO Other Provider Bertin Yepez DO Emergency Provider Indra Burgess MD Admit Provider Indra Guillory MD Attending Provider Lisa Hidalgo MD Attending Provider Omid YBARRA.INTER COM INSTALLER, Yuerong Unavailable Marie Castro DO Primary Care Provider Marie Castro DO Primary Care Provider Bertin Yepez DO Emergency Provider Queenie Guillory MD, Indra Morrow Admit Provider Lisa Hidalgo MD Attending Provider Saúl Davis MD Unavailable Omid GRAIN FARMWORKER.INTER COM INSTALLER, Staciaerong Unavailable MARIE CASTRO Attending Unavailable VASCHAK, MARIE Westfall Attending Unavailable YOMI CHONG Referring Unavailable DIDION, CHELSEA Thayer Attending Unavailable VASCHAK, MARIE Westfall Referring Unavailable VASCHAK, MARIE Westfall Referring Unavailable VASCHAK, MARIE Westfall Attending Unavailable VASCHAK, MARIE Westfall Referring Unavailable VASCHAK, MARIE Westfall Attending Unavailable VASCHAK, MARIE Westfall Attending Unavailable VASCHAK, MARIE Westfall Referring Unavailable VASCHAK, MARIE Westfall Attending Unavailable BETO GARCIA Attending Unavailable STEPHANIE SHERIDAN Attending Unavailable XAVICHAMARIE Skinner Referring Unavailable YOMI CHONG Attending Unavailable Marie Castro DO Primary Care Provider Anat Perez MD Other Provider Abdulaziz Root MD Attending Provider Marie Castro Primary Care Unavailable Stephanie Sheridan Unavailable Sushant Cordon Attending UnavailSushant Seo Admitting UnavailBeto Corbett Consulting Unavailable Thierno Corrales Unavailable Marie Castro Primary Care Unavailable Anat Perez Attending Unavailable Anat Perez Admitting Unavailable Marie Castro Primary Care Unavailable Abdulaziz Root Attending Unavailable Abdulaziz Root Admitting Unavailable Marie Castro Primary Care Unavailable Anat Perez Referring Unavailable Abdulaziz Root Admitting Unavailable Abdulaziz Root Attending Unavailable Marie Castro Primary Care Unavailable Anat Perez Attending Unavailable Anat Perez Admitting Unavailable Marie Castro Primary Care Unavailable Abdulaziz Root Attending Unavailable Almchris, Abdulaziz Admitting Unavailable Vaschak, Marie Primary Care Unavailable Ana, Anat Attending Unavailable Ana, Anat Admitting Unavailable Vaschak, Marie Primary Care Unavailable Ana, Anat Attending Unavailable Ana, Anat Admitting Unavailable Ana, Anat Referring Unavailable [facility], Marie Primary Care Unavailable Almahamebill, Abdulaziz Attending Unavailable Almahscar, Asadan Admitting Unavailable Vaschak, Marie Primary Care Unavailable Gray Higgins Consulting Unavailable Karon, Jose Alfredo Attending Unavailable Karon, Jose Alfredo Admitting Unavailable Doyeyo, Indra Morrow Admitting Unavailab le Vaschak, Heber Primary Care Unavailable Lisa Hidalgo Attending Unavailable Araceli, Chela Consulting Unavailable Guille, Yves Consulting Unavailable Chuck Velasco Consulting Queenie Perez, Anat Consulting Unavailable Ana OGLESBY, Anat Attending Provider [phone] ILEANA [facility] UnavailAYANA Farley Attending Unavailable XAVICHAK, [facility] Unavailab AYANA Dudley Attending Unavailable STALIN ALAMO Referring Unavailable VASCHAK, [facility] Unavailab le VASCHAK, [facility] Unavailab le VASCHAK, [facility] Unavailab AYANA Dudley Attending Unavailable [facility] UnavailAYANA Farley Referring Unavailable [facility] UnavailAYANA Farley Attending Unavailable [facility], [facility] Unavailab AYANA Dudley Referring Unavailable Tristan KIM Attending Unavailable Tristan KIM Attending Unavailable Tristan KIM Referring Unavailable Medications Current Medications Medication Drug Class(es) Dates Sig (Normalized) Sig (Original) [id number] 200 actuat albuterol 0.09 mg/actuat metered dose inhaler (13 sources) beta2-Adrenergic Agonist Start: 07-20-2024 End: 07-20-2025 [...] on 01/04/22 at 1500, Until Discontinued amylase 601841 unt / lipase 32611 unt / protease 60106 unt delayed release oral capsule (20 sources) Start: 04-09-2025 Creon 38903-39 000 units capsule Indications: Pancreatic insufficiency (HCC) TAKE 2 CAPSULES BY MOUTH DAILY WITH MEALS AND 1 WITH 2 SNACKS DAILY DIRECTED 250 capsule 04/09/2025 Active Start: 03-05-2025 pancrelipase, Lqr-Koct-Edke, (Creon) 94216-81047 units capsule Indications: Pancreatic insufficiency (HCC) TAKE 2 CAPSULES BY MOUTH DAILY WITH MEALS AND 1 WITH 2 SNACKS DAILY DIRECTED 250 capsule 03/05/2025 Active Start: 08-15-2024 pancrelipase, Wgq-Xnad-Etxk, (Creon) 71316-71509 units capsule Indications: Pancreatic insufficiency (HCC) TAKE 2 CAPSULES BY MOUTH DAILY WITH MEALS AND 1 CAPSULE BY MOUTH WITH SNACKS DIRECTED 240 capsule 3 08/15/2024 Active Start: 01-25-2024 pancrelipase, Zhq-Yvmx-Iqpw, (Creon) 99429-29354 units capsule Indications: Pancreatic insufficiency (CMS/HCC) TAKE 2 CAPSULES BY MOUTH DAILY WITH MEALS AND 1 CAPSULE BY MOUTH WITH SNACKS DIRECTED 240 capsule 3 01/25/2024 Active Start: 05-07-2023 take 86573-81638 cap sules by mouth once Utrxof-Ircnudbh-Rwfnliw (Creon) 24,000-76,000 -120,000 unit Capsule,Delayed Release(Dr/Ec) Active 2 CAP PO 3x/Day with meals 120 May 07, 2023 12:00am Complies with drug therapy Start: 05-02-2018 End: 08-31-2024 yplllz-wkcjreer-sjnflcm (CRE ON) 24,000-76,000 -120,000 unit cpDR Take 2 capsules by mouth three times daily with meals. 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 For use in case of pump failure 15 mL 3 10/04/2024 Active Start: 07-17-2024 inject 5 [IU] [...] (HCC) Change every 72 hours. 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 10 Each 07/06/2024 10/04/2024 Discontinued Start: 07-06-2024 insulin pump [...] meal lipase/protease/amylase (CREON ORAL) (2 sources) take 35600 mg by mouth three times daily lipase/protease/amylase (CREON ORAL) Take 24,000 mg by mouth 3 times a day. 0 Active lisinopril 2.5 mg oral tablet (20 sources) Angiotensin Converting Enzyme Inhibitor Star t: 03-12 End: 11-28 25 lisinopril 2.5 mg tablet Take 2.5 mg by mouth. 03/27/2024 Active loratadine 10 mg oral tablet (20 sources) Star t: 10-10 End: 08-13 25 take 1 tablet by mouth once daily loratadine (Claritin) 10 MG tablet Take 1 tablet by mouth Daily 10/26/2023 Active take 1 tablet by sondra every twenty-four hours Claritin 10 MG 1 tablet Orally Once a day Active lutein 6 mg oral capsule (20 sources) Start: 10-26-2023 End: 07-20-2024 take 1 capsule by mouth once daily Lutein 6 mg capsule Active 6 MG PO Daily October 26, 2023 12:00am give with meal/snack Complies with drug therapy take 1 capsule by mo [facility] every twenty-four hours Lutein 6 MG 1 [...] 2024 9:38am March 27, 2025 10:50am Start: 06-21-2024 take 0.5 tablet by m outh every [...] tablet (20 sources) Serotonin Reuptake Inhibitor Start: 2024 take 1 tablet by mouth once daily in the morning PARoxetine (Paxil) 40 MG tablet Indications: Generalized anxiety disorder TAKE 1 TABLET BY MOUTH EVERY DAY IN THE MORNING 90 tablet 3 08/11/2024 Active Start: 02-15-2024 End: 04-17-2024 take 1 tablet by mouth [...] take 1 tablet by mouth once daily spironolactone (Aldactone) 25 MG tablet Indications: Chronic systolic CHF (congestive heart failure), NYHA class 2 (HCC) Take 1 tablet (25 mg) by mouth Daily 90 tablet 3 01/17/2025 Active Start: 08-31-2024 End: 10-13-2024 Spironolactone 25 mg [...] 12:00am May 16, 2024 1:54pm Vitamin D3 [id number] UNIT/GM (4 sources) Vitamin D3 31526 00 UNIT/GM as directed Active Completed/Discontinued Medications [...] 4-6 hrs for 7 days ROSEANN # [id number] Active take 1 tablet by sondra th [...] Q4H as needed for Epigastric distress (Non-Card) May 03, 2023 12:00am May 03, 2023 [...] Bisacodyl 10 mg Suppository Discontinued 10 MG TN Daily as needed for Constipation May 03, 2023 12:00am May 03, 2023 [...] 3x/Day with meals May 03, 2023 12:00am calcium chloride 0.0014 [...] 20 mg tablet Discontinued 0 .ROUTE .COMPLEX August 09, 2024 12:46pm August 31, 2024 11:10am TAKE 1 TABLET BY MOUTH EVERY DAY AT 8 AM Start: 07-17-2024 End: 08-09-2024 take 1 tablet by mouth once daily Furosemide 20 mg Tablet Discontinued 20 MG PO Daily at 0800 July 17, 2024 1:00am August 09, 2024 [...] 10:49am administer over 30 mins lactobacillus acidophilus [id number] unt oral capsule (20 sources) Start: 08-31-2023 [...] 03, 2023 12:00am May 03, 2023 5:10pm magnesium hydroxide 80 mg/ml oral suspension (20 [...] tablet (20 sources) Start: 08-31-2023 End: 02-08-2024 Multivitamin-Cuevitas als-Lutein (Multivitamin 50 Plus) tablet Discontinued 1 TAB PO Daily August 31, 2023 1:00am February 08, 2024 1:25pm On Hold: duplicate Start: 08-31-2023 End: 02-08-2024 Dkemeztxhxyb-Ksfkacju-Jzrcxd (Multivitamin 50 Plus) tablet Discontinued 1 TAB PO Daily August 31, 2023 12:00am February 08, 2024 12:25pm On Hold: duplicate Start: 08-31-2023 End: 02-08-2024 Nmpvysvtzivm-Zzkrpfvy-Ulbtwf (Multivitamin 50 Plus) tablet Discontinued 1 TAB PO Daily August 31, 2023 12:00am February 08, 2024 12:25pm Start: 08-31-2023 End: 02-08-2024 Ibiltrculjzm-Olsocirh-Inrdms (Multivitamin 50 Plus) tablet Discontinued 1 TAB [...] oral tablet (1 source) Start: 01-07-2022 End: 06-29-2022 potassium bicarb-citric acid (EFFER-K) effervescent tablet 40 [...] Bedtime 0 May 03, 2023 12:00am sennosides, intermediate 8.6 mg oral tablet (2 sources) Start: [...] tablet Discontinued 90 MG PO Twice daily July 16, 2023 1:00am September 05, 2023 [...] mg tablet Discontinued 80 MG PO Daily 90 90 October 28, 2023 12:00am February 08, 2024 [...] Translations: [Non-ST elevation (NSTEMI) myocardial infarction] Onset: 05-25-2023 05-25-2023 Chronic Administrative/social admission (20 sources) Other reduced mobility; Translations: [Impaired mobility and activities of daily living] 05-03-2023 Episodic Comment on above: Problem List clean-u p per request of Phys. 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 EHR Cmte Cardiac dysrhythmias (20 sources) Bradycardia; Translations: [Bradycardia, unspecified] Onset: 05-24-2024 04-26-2024 Episodic Chronic obstructive pulmonary disease and bronchiectasis (14 sources) Acute exacerbation of chronic obstructive airways disease; Translations: [Chronic obstructive pulmonary disease with (acute) exacerbation] Onset: 07-16-2024 07-16-2024 Chronic Chronic obstructive pulmonary disease and bronchiectasis (4 sources) Bronchitis; Translations: [Bronchitis, not specified as acute or chronic] 04-26-2024 Episodic Conduction disorders (20 sources) H/O: cardiac pacemaker in situ; Translations: [Presence of automatic (implantable) cardiac defibrillator] Onset: 05-24-2024 05-25-2024 Chronic Congestive heart failure; nonhypertensive (20 sources) Acute on chronic systolic heart failure; Translations: [Acute on chronic systolic (congestive) heart failure] Onset: 05-31-2024 04-26-2024 Chronic Coronary atherosclerosis 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; Translations: [Atherosclerotic heart disease of circle coronary artery without angina pectoris] Onset: 01-31-2019 04-30-2023 Chronic Comment on above: Problem List [...] Diabetes mellitus; Translations: [Uncontrolled diabetes mellitus] Onset: 05-02-2023 Resolved: 07-09-2024 05-04-2023 Chronic Comment on above: Problem List clean-u p per request of Phys. 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] 10-21-2023 Chronic Essential hypertension (20 sources) Hypertensive disorder; Translations: [Essential (primary) hypertension] Onset: 05-25-2023 05-04-2023 Chronic Fracture of upper limb (1 source) Other fracture of upper end of left radius, initial encounter for closed fracture; Translations: [Other fracture of upper end of left radius, initial encounter for closed fracture] Onset: 01-21-2024 Episodic Gastrointestinal hemorrhage (20 sources) Melena; Translations: [Melena] 09-14-2023 Episodic Heart valve disorders (20 sources) Non-rheumatic mitral regurgitation ; Translations: [Nonrheumatic mitral (valve) insufficiency] Onset: 05-31-2024 05-31-2024 Chronic Hyperplasia of prostate (20 sources) Benign prostatic hyperplasia; Translations: [Benign prostatic hyperplasia without lower urinary tract symptoms] Onset: 01-20-2023 05-04-2023 Chronic Intestinal infection (20 sources) Infection caused by Helicobacter pylori; Translations: [Other specified bacterial intestinal infections] 10-21-2023 Episodic Mood disorders (20 sources) Moderate major depression, single episode; Translations: [Major depressive disorder, single episode, moderate] Onset: 02-05-2023 02-05-2023 Chronic Nonspecific chest pain (1 source) Chest pain, unspecified; Translations: [Chest pain, unspecified] Onset: 01-21-2024 Episodic Nutritional deficiencies (20 sources) Deficiency of macronutrients; Translations: [Mild protein-calorie malnutrition] 05-04-2023 Chronic Nutritional deficiencies (20 sources) Iron deficiency; Translations: [Iron deficiency] Onset: 06-16-2024 02-18-2024 Episodic Osteoporosis (20 sources) Osteoporosis; Translations: [...] involving the digestive system and abdomen] Onset: 01-02-2022 Episodic Other lower respiratory disease (2 sources) Orthopnea; Translations: [Orthopnea] Onset: 08-16-2023 08-16-2023 Episodic Other lower respiratory disease (1 source) Orthopnea; Translations: [Orthopnea] Onset: 08-16-2023 Episodic Other lower respiratory disease (8 sources) Pleuritic pain; Translations: [Pleurodynia] 07-16-2024 Episodic Other lower respiratory disease (2 sources) Lower respiratory tract infection; Translations: [Unspecified acute lower respiratory infection] 08-30-2024 Episodic Other nervous system disorders (4 sources) Carpal tunnel syndrome; Translations: [Carpal tunnel syndrome, left upper limb] Chronic Other nervous system disorders (7 sources) Other acute postprocedural pain; Translations: [Pain in joint, pelvic region and thigh] 05-03-2023 Episodic Other nutritional; endocrine; and metabolic disorders (1 source) Hypomagnesemia; Translations: [Hypomagnesemia] Onset: 01-21-2024 Chronic Other screening for suspected conditions (not mental disorders or infectious disease) (20 sources) Raised cardiac enzyme or marker; Translations: [Other specified abnormal findings of blood chemistry] Onset: 05-25-2023 04-28-2023 Episodic Comment on above: Problem List clean-u p per request of Phys. 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] 02-06-2024 Chronic Residual codes; unclassified (4 sources) Acquired total absence of pancreas; 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] 02-08-2024 Chronic Residual codes; unclassified (2 sources) Body mass index 20-24 - normal; Translations: [Body mass index (BMI) 20.0-20.9, adult] Onset: 06-23-2023 08-16-2023 Episodic Unclassified (1 source) CONTACT W/AND (SUSP) EXPOS COVID-19; Translations: [CONTACT W/AND (SUSP) EXPOS COVID-19] Onset: 01-06-2022 Unclassified (1 source) I25.10 - Atherosclerotic heart disease of circle coronary artery without angina pectoris,I25.5 - Ischemic cardiomyopathy,R06.00 - Dyspnea, unspecified Unclassified (1 source) High Blood Sugar Onset: 10-26-2024 Past or Other Problems Problem Classification Problem Date Documented Date Episodic/Chronic Abdominal pain (3 sources) Upper abdominal pain, unspecified; Translations: [UPPER ABDOMINAL PAIN, UNSPECIFIED] Onset: 01-02-2022 Episodic Anxiety disorders (20 sources) Mixed anxiety and depressive disorder; Translations: [Anxiety disorder, unspecified] Onset: 01-08-2023 Resolved: 05-31-2024 05-04-2023 Chronic Deficiency and other anemia (1 source) Iron deficiency anemia, unspecified; Translations: [Iron deficiency anemia, unspecified] Onset: 03-10-2024 Episodic Diabetes mellitus without complication (20 sources) Secondary diabetes mellitus; Translations: [Diabetes mellitus due to underlying condition without complications] Onset: 01-02-2022 Resolved: 01-20-2023 Chronic Comment on above: type 1- insulin pump in place. Fracture of neck of femur (hip) (20 sources) Closed intertrochanteric fracture; Translations: [Displaced intertrochanteric fracture of right femur, initial encounter for closed fracture] Onset: 05-25-2023 Resolved: 04-17-2024 04-28-2023 Episodic Comment on above: Problem List clean-u p per request of Phys. 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 Gastroduodenal ulcer (except hemorrhage) (20 sources) Acute [...] limb] Onset: 02-28-2024 Resolved: 04-17-2024 04-17-2024 Chronic Other nervous system disorders (20 sources) Hip pain; Translations: [Other acute postprocedural pain] Onset: 05-26-2023 Resolved: 04-17-2024 05-03-2023 Episodic Comment on above: Problem List clean-u p per request of Phys. EHR Cmte Pancreatic disorders (not diabetes) (20 sources) Pancreatic [...] coli]] Onset: 05-02-2023 Resolved: 04-17-2024 04-17-2024 Episodic Skin and subcutaneous tissue infections (20 sources) Abscess of abdominal wall; Translations: [Cutaneous abscess of abdominal wall] Onset: 06-19-2024 Resolved: 08-30-2024 07-03-2024 Episodic Substance-related disorders (20 sources) Smoker; Translations: [Nicotine dependence, unspecified, uncomplicated] Onset: 2018 Resolved: 04-17-2024 04-17-2024 Chronic Unclassified (2 sources) Onset: 05-25-2023 Resolved: 08-16-2023 05-25-2023 Results Test Name Value Interpretation Reference Range [facility] peptide [Mass/Vol] <0.1 Low 1.1-4.4 [facility] Comment on above: Order Comment: Speci men Type: BLOOD SPECIMEN Ordering Facility: [facility] Address: [address] [place] [address] Performed By: #### 1 986-9 #### [facility] CLIA [id number] [address] [place] [address] [place] [facility] GLUCOSE P FAST LASHONDA-LULY Lugo 04-09-2025 Glucose [Mass/Vol] 751 mg/dL High 74 - 99 mg/dL [facility] Comment on above: [place] Diabetes As sociation guidelines state that a diabetes mellitus diagnosis is preliminarily made when the fasting plasma glucose meets or exceeds 126 mg/dL. In the absence of unequivocal hyperglycemia, results should be confirmed with repeat testing. Patients are at increased risk for diabetes mellitus (prediabetes) when the fasting glucose is 100 to 125 mg/dL. Interpretation and review of laboratory results Abnormal [facility] Specimen Type: BLOOD SPECIMEN Ordering Facility: [facility] Address: [address] [place] [address] Original Ordering Provider: AYANA LARA [facility] CNOVon 04-09-2025 CNOV Office Visit (ENDOLN ) ----- MANOLO VICKERS ([id number]) 1935 M Date Time Provider Department 04/09/25 2:00 PM AYANA ZAVALA ENDOLN During your visit today, we recorded the following information about you: Pulse Blood pressure Weight 60/minute 162/86 62.9 kg Ayana Zavala, AMADA.INTER COM INSTALLER 04/10/2025 8:17 AM Addendum Endocrinology Follow Up History of Present Illness Manolo Vickers is a 89 year old male presents today for follow up of DM Type 1. Here with . At [facility] 10/2024, basal rate was reduced overnight. He continues to have very elevated blood sugars while on the pump. He has continued to have issues with obtaining his supplies. He has been off his pump for a few days afternoon as pharmacy could not fill as they keep falling off. He has not taken Lantus and is using Novolog only instead. admits he is not using Novolog consistently. He continues to have longstanding polyuria and polydipsia along with significant fatigue. No nausea or vomiting. 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 Labwork from this AM is pending. recalls he is not bolusing consistently and will ignore his Omnipod alarms at times. Patient recalls being consistent with his Novolog and Lantus injections when he was on these. 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 Per patient, this was done due to [...] 5 on 09/04/24. Date of Diagnosis: 2019 HbA1c: Hemoglobin A1C [...] OTHER Medication Dosage Pharm Subclass Blood-Glucose Sensor (Onevest G7 SENSOR) delfin Change every 10 days. [...] subcutaneously as needed. Agents to treat Hypoglycemia (Hyperg (more content not included)... Normal [facility] GAD65 Ab Ser-aCncon 04-09-20 25 Glutamate decarboxylase 65 Ab Qn (S) <5.0 Normal <=5.0 [facility] Comment on above: Order Comment: Latonya an Type: BLOOD SPECIMENOrdering Facility: [facility] Address: [address] [place] [address] Result Comment: Anti -glutamic acid decarboxylase antibody (GAD65) test usually in conjunction with another test such as IA-2 antibody is used as an aid in establishing the autoimmune nature of previously-diagnosed type I diabetes mellitus or in predicting of progression to type I diabetes mellitus in patients with certain autoimmune diseases including autoimmune gastritis among others. It is also used as an aid in diagnosis of stiff person syndrome and certain autoimmune nervous system diseases. Clinical correlation is required. Performed By: #### 1 3926-1 ####[facility] [id number] [place] [address] [place] Glucose p fast [facility] 04-09-2025 Glucose post fast [Mass/Vol] 751 mg/dL High 74-99 [facility] Comment on above: Order Comment: Latonya an Type: BLOOD SPECIMENOrdering Facility: [facility] Address: [address] [place] [address] Result Comment: [place] ican Diabetes Association guidelines state that a diabetes mellitus diagnosis is preliminarily made when the fasting plasma glucose meets or exceeds 126 mg/dL. In the absence of unequivocal hyperglycemia, results should be confirmed with repeat testing. Patients are at increased risk for diabetes mellitus (prediabetes) when the fasting glucose is 100 to 125 mg/dL. Performed By: #### 1 558-6 ####[facility] [id number] [place] [address] [place] Glutamate decarboxylase 65 A b Qn (S)on 04-09-2025 GLUTAMIC ACID DECARBOXYLAS AB QUALITATIVE Negative Normal Negative [facility] Comment on above: Order Comment: Speci men Type: BLOOD SPECIMENOrdering Facility: [facility] Address: [address] [place] [address] Performed By: #### 1 3926-1 ####[facility] [id number] [address] [facility] HbA1c (Bld)on 04-09-2025 Average glucose Estimated from glycated hemoglobin (Bld) [Mass/Vol] 321 mg/dL Normal [facility] Comment on above: Order Comment: Speci men Type: BLOOD SPECIMENOrdering Facility: [facility] Address: [address] [place] [address] Result Comment: eAG: (Estimated average glucose) is a calculated value from HgbA1c and is pharmaceutical representative of the average blood glucose level in the last 2-3 month period. Performed By: #### 5 5454-3 ####[facility] [id number] [address] STATES [facility] HbA1c (Bld) [Mass fraction] 12.8 % High 4.3-5.6 [facility] Comment on above: Order Comment: Speci men Type: BLOOD SPECIMENOrdering Facility: [facility] Address: [address] [place] [address] Result Comment: Amer ican Diabetes Association guidelines indicate that patients with HgbA1c in the range 5.7-6.4% are at increased risk for development of diabetes, and intervention by lifestyle modification may be beneficial. HgbA1c greater or equal to 6.5% is considered diagnostic of diabetes. Performed By: #### 5 5454-3 ####[facility] [id number] [address] [facility] ALL PRO BNPon 04-02-2025 NT PRO B TYPE NATRIURETIC PEPT 8588 pg/mL Critically high NINF - 1800.0 pg/mL [facility] Comment on above: RESULTS CALLED TO BE KARRIE SANDOVAL RN [facility] CMP (CMP) (FOR REMOTE FH C USE)on 04-02-2025 Albumin [Mass/Vol] 3.2 g/dL Low 3.4 - 5.0 g/dL [facility] ALBUMIN GLOBULIN RATIO 0.9 NO [facility] ALP [Catalytic activity/Vol] 207 U/L High 46 - 116 U/L [facility] ALT [Catalytic activity/Vol] 112 U/L High 16 - 63 U/L [facility] Anion gap [Moles/Vol] 11.7 mmol/L NO [facility] AST [Catalytic activity/Vol] 196 U/L High 15 - 37 U/L [facility] Bilirubin [Mass/Vol] 0.5 mg/dL 0.2 - 1 .0 mg/dL [facility] Calcium [Mass/Vol] 8.2 mg/dL Low 8.5 - 10. 1 mg/dL [facility] Chloride [Moles/Vol] 93 mmol/L Low 98 - 10 7 mmol/L [facility] CO2 [Moles/Vol] 29 mmol/L 21.0 - 32.0 mmol/L [facility] Creatinine [Mass/Vol] 2.48 mg/dL High 0.70 - 1.30 mg/dL [facility] GFR/1.73 sq M.predicted CKD-EPI (S/P/Bld) [Vol rate/Area] 30 Low >=60 mL/min/1.7 3m 2 [facility] Globulin (S) [Mass/Vol] 3.7 g/dL [facility] Glucose [Mass/Vol] 581 mg/dL Critically high 74 - 1 06 mg/dL [facility] Comment on above: RESULTS CALLED TO BE KARRIE SANDOVAL RN Potassium [Moles/Vol] 4.7 mmol/L 3.5 - 5.1 mmol/L [facility] Protein [Mass/Vol] 6.9 g/dL 6.4 - 8.2 g/dL [facility] Sodium [Moles/Vol] 129 mmol/L Low 136 - 145 mmol/L [facility] TB EGFR-NON AF AUSTRIAN 25 Low >=60 mL/min/1.7 3m 2 [facility] Urea nitrogen [Mass/Vol] 73 mg/dL High 7.0 - 18.0 mg/dL [facility] Urea nitrogen/Creatinine [Mass ratio] 29.4 mg/mg [facility] No Panel Informationon 04-02 Interpretation and review of laboratory results Abnormal [facility] GLUTAMIC AC DECARBOXYLASE AB Ordered By: Erick Peguero on 02-13-2025 Glutamate decarboxylase 65 Ab Qn (S) -5.0 Abnormal [facility] MLR HEMOGLOBIN A1Con 025 Glucose [Mass/Vol] 269 mg/dL [facility] HbA1c (Bld) [Mass fraction] 11 % High 4.5 - 6.2 % [facility] Comment on above: ADA RECOMMENDED LIMI T 4.0 - 6.0 ADA THERAPEUTIC TARGET < 7.0 ACTION SUGGESTED > 7.0 Interpretation and review of laboratory results Abnormal [facility] No Panel Informationon 02-13 Interpretation and review of laboratory results Abnormal [facility] GLUCOSE BLOODon 02-14-20 25 Glucose [Mass/Vol] 141 mg/dL High 74 - 106 mg/dL [facility] 02-05-2025 CNPN Telephone (ENDOLN) ----- MANOLO VICKERS ([id number]) 1935 M Date Time Provider Department 02/05/25 AYANA ZAVALA ENDOLN During your visit today, we recorded the following information about you: Ayana Zavala APRN.INTER COM INSTALLER 02/05/2025 11:17 AM Signed Medicare requires a [...] Buffy Roche MA 02/15/2025 10:09 AM Signed [facility] Health-Medicare Part B Insulin RX form completed and faxed Confirmation received Allergies As of Date: 02/05/2025 (No Known Allergies) Date Reviewed: 10/26/2024 Reviewed by: Ayana Zavala APRN.INTER COM INSTALLER - Fully Assessed Reason for Visit: [employer] [facility] form [Other] Primary Visit Diagnosis: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 - yaxlzj-uycuqutn-vgvaxqb (CREON) 24,000-76,000 -120,000 unit cpDR Take 2 [...] Status:Closed by AYANA ZAVALA on 02/05/25 Normal [facility] CT ANGIOGRAM CHESTon 01-16-[address] ANGIOGRAM CHEST CLINICAL HISTORY: Ch [...] [Mass/Vol] 1.21 mg/dL 0.76 - 1.27 mg/dL [facility] Creatinine [Mass/Vol]on 12-12 GFR/1.73 sq M.predicted among non-blacks MDRD (S/P/Bld) [Vol rate/Area] 58 mL/min/{1.73_m2} Low 59 - PINF mL/min/1.7 3 [facility] Interpretation and review of laboratory results Abnormal [facility] Performed at: - [facility] [address] , [address], [place], [place] [id number] Wheat Buyer: Hilario Chew MD, Phone: [phone] [facility] XR CHEST 2 VIEWSon 5 XR CHEST [...] Normal Not Available XR Chest 2 Viewson TITLE OF EXAM: XR CH EST 2 [...] signed in approved by the interpreting radiologist. IMAGING Yuval Gill MD - 01/02/2025 TITLE OF [...] signed in approved by the interpreting radiologist. [facility] Radiology Study observation (narrative) [facility] XR Chest 2 ViewsOrdered By: Yuval Gill on 01-02-2025 [facility] i'mma Work Phone: Issa 12-19-2024 [facility] Telephone (ENDOLN) ----- MANOLO VICKERS ([id number]) 1935 M Date Time Provider Department 12/19/24 AYANA ZAVALA During your visit today, we recorded the following information about you: Sharonda Felipe 12/19/2024 12:07 PM Signed Pt needs refill on sensors. Do not see on current med list. Pt uses [facility] pharmacy in [facility]. Insurance is not going to pay for this until 01/03. Spouse is requesting to speak to a nurse about getting an alternative until then. Please review and advise. Patient has been identified by name and birthdate. Duration of symptoms: N/A Person calling: self Call patient at: on cell [phone] (cell) Was an appointment scheduled: No Closing statement: Results or non-symptom based questions: Thank you for calling [facility], your call will be returned within the next business day. Ayana Hess APRN.INTER COM INSTALLER 12/25/2024 8:04 AM Addendum Rx sent however patient obtains typically from [employer], are they still having issues obtaining from there? Erick Peguero LPN 12/27/2024 11:08 AM Signed Spoke to pharmacy, the sensors are ready for merchandise pickup/receiving associate. Relayed message to patient's . She states that they do usually receive sensors from [facility] but they are having issues receiving them. The patient uses more that prescribed and paid for by insurance because they fall out. She will merchandise pickup/receiving associate those at pharmacy , if there are any further issues she will contact our office. Allergies As of Date: 12/19/2024 (No Known Allergies) Date Reviewed: 10/26/2024 Reviewed by: Ayana Zavala APRN.INTER COM INSTALLER - Fully Assessed Reason for Visit: Refill [...] PUMP (MAX DAILY 75 UNITS) - Insulin [place], Disposable, (BD ULTRA-FINE MARICHUY PEN NEEDLE) 32 [...] Inject 1 mg subcutaneously as needed. - kqcais-likbriyp-rgmuclh (CREON) 24,000-76,000 -120,000 unit cpDR Take 2 [...] Status:Closed by AYANA ZAVALA on 12/25/24 Normal [facility] CNOVon 10-26-2024 CNOV Office Visit (ENDOLN ) ----- MANOLO VICKERS ([id number]) 1935 M Date Time Provider Department 10/26/24 12:15 PM AYANA ZAVALA ENDOLN During your visit today, we recorded the following information about you: Pulse Blood pressure Weight Height 60/minute 163/80 61 kg 1.778 m Ayana Zavala APRN.CNP 10/26/2024 1:11 PM Signed Endocrinology Follow Up History of Present Illness Manolo Isiamilcar is a 89 year old male presents today for follow up of DM Type 1. Here with . 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 Per patient, this was done due to [...] as n (more content not included)... Normal [facility] HEMOGLOBIN A1C (POC)on 10-26 HbA1c (Bld) [Mass fraction] 12 % Abnormal 4.3 - 5.6 % [facility] Comment on above: Location:[facility], [address], [place], [place], [address] Point of care (POC) Hemoglobin A1c (HGBA1C) [...] specific diabetes management situations: The POC device fire apparatus sprinkler inspector provides a normal range of 4.2% to 6.5% for the HGBA1C POC test. However, the [place] Diabetes Association guidelines indicate that patients with [...] Interpretation and review of laboratory results Abnormal [facility] ALL BASIC METABOLIC PANELon 10-23-2024 Anion gap [Moles/Vol] 12.4 mmol/L NO [facility] Calcium [Mass/Vol] 8.2 mg/dL Low 8.5 - 10. 1 mg/dL [facility] Chloride [Moles/Vol] 101 mmol/L 98 - 10 7 mmol/L [facility] CO2 [Moles/Vol] 27.9 mmol/L 21.0 - 32.0 mmol/L [facility] Creatinine [Mass/Vol] 1.41 mg/dL High 0.70 - 1.30 mg/dL [facility] GFR/1.73 sq M.predicted CKD-EPI (S/P/Bld) [Vol rate/Area] 58 Low >=60 mL/min/1.7 3m 2 [facility] Glucose [Mass/Vol] 355 mg/dL High 74 - 106 mg/dL [facility] Potassium [Moles/Vol] 4.3 mmol/L 3.5 - 5.1 mmol/L [facility] Sodium [Moles/Vol] 137 mmol/L 136 - 145 mmol/L [facility] TBH EGFR-NON AF AUSTRIAN 48 Low >=60 mL/min/1.7 3m 2 [facility] Urea nitrogen [Mass/Vol] 31 mg/dL High 7.0 - 18.0 mg/dL [facility] Urea nitrogen/Creatinine [Mass ratio] 22 mg/mg [facility] ALL PRO BNPon 10-23-2024 NT PRO B TYPE NATRIURETIC PEPT 6244 pg/mL Critically high NINF - 1800.0 pg/mL [facility] Comment on above: RESULTS CALLED TO Be cky Singler, RN No Panel Informationon 10-23 Interpretation and review of laboratory results Abnormal [facility] CLINISYNC [facility] CNPNon 10-13-2024 CNPN Telephone (ELIZABETHT) ----- MANOLO VICKERS ([id number]) 1935 M Date Time Provider Department 10/13/24 GAYE MATASarah During your visit today, we recorded the following information about you: Gaye Mata RN 10/13/2024 8:13 AM Signed LM VM for pt to return call. Patient appears to now be connected to the sensor. Advised how to treat hypoglycemia. Recommended see educator for appt to review pump and sensor operation Allergies As of Date: 10/13/2024 (No Known Allergies) Date Reviewed: 09/25/2024 Reviewed by: Ayana Zavala APRN.INTER COM INSTALLER - Fully Assessed Reason for Visit: Omnipod/Dexcom [...] crtg Change every 72 hours. - Insulin [place], Disposable, (BD ULTRA-FINE MARICHUY PEN NEEDLE) 32 [...] Inject 1 mg subcutaneously as needed. - pbudce-haptzyib-dmudxng (CREON) 24,000-76,000 -120,000 unit cpDR Take 2 [...] Encounter Status:Closed by GAYE MATA on 10/13/24 [facility] 10-11-2024 [facility] Telephone (ELIZABETHSarah) ----- MANOLO VICKERS ([id number]) 1935 M Date Time Provider Department 10/11/24 GAYE MATASarah During your visit today, we recorded the following information about you: Gaye Mata, RN 10/11/2024 4:23 PM Signed Patient's sent message patient had received Dexcom G7 CGM sensors from [employer] last night. Patient applied Omnipod 6 insulin [...] Date Reviewed: 09/25/2024 Reviewed by: Ayana Zavala APRN.INTER COM INSTALLER - Fully Assessed Reason for Visit: Omnipod [...] crtg Change every 72 hours. - Insulin [place], Disposable, (BD ULTRA-FINE MARICHUY PEN NEEDLE) 32 [...] Inject 1 mg subcutaneously as needed. - mrxsdr-eiinamee-ipujxul (CREON) 24,000-76,000 -120,000 unit cpDR Take 2 [...] Encounter Status:Closed by GAYE MATA on 10/11/24 [facility] KALANIN Telephone (ENDOLN) ----- MANOLO VICKERS ([id number]) 1935 M Date Time Provider Department 10/11/24 AYANA ZAVALA During your visit today, we recorded the following information about you: Ayana Zavala APRN.[facility] 10/11/2024 8:08 AM Signed Received notice from pharmacy PA is request for Ominpod 5 pods. Please complete. Ruchi Rhoades 10/11/2024 11:37 AM Signed Initiated PA for insulin pump cart,auto,BT,G6/7 (OMNIPOD 5 G6-G7 PODS, GEN 5,) crtg through [employer] Medicare Chart notes attached Questions Completed Waiting for determination Ruchi Prior Disability Services Coordinator Endocrinology and Metabolism [place] Ruchi Rhoades 10/11/2024 11:37 AM Signed Allergies As of Date: 10/11/2024 (No Known Allergies) Date Reviewed: 09/25/2024 Reviewed by: Ayana Zavala APRN.INTER COM INSTALLER - Fully Assessed Reason for Visit: Insurance Authorization [1163] Cmt: insulin pump cart,auto,BT,G6/7 (OMNIPOD 5 G6-G7 [...] crtg Change every 72 hours. - Insulin [place], Disposable, (BD ULTRA-FINE MARICHUY PEN NEEDLE) 32 [...] Inject 1 mg subcutaneously as needed. - zwtecb-ilxaiula-sinhdmv (CREON) 24,000-76,000 -120,000 unit cpDR Take 2 [...] Encounter Status:Closed by AYANA ZAVALA on 10/11/24 [facility] 10-10-2024 [facility] Telephone (ELIZABETHSarah) ----- MANOLO VICKERS ([id number]) 1935 M Date Time Provider Department 10/10/24 GAYE MATA During your visit today, we recorded the following information about you: Gaye Mata, KARIN 10/10/2024 9:36 AM Signed Called and spoke with patient's . Patient called educator last week stating he has been having issues getting his Dexcom G7 CGM sensors from his [employer] company, [employer]. Patient states he called them a few [...] LPN 10/10/2024 3:40 PM Signed Spoke to Noah Mary, he reported that the Dexcom supplies should be delivered today vis [employer]. Tracking nbr [id number]. According to his notes it was out for delivery at 5:48 am 10/10/2024. I attempted to reach patient at both nbrs listed, no answer. VM left with update. I will send a [employer] message as well. Allergies As of Date: 10/10/2024 (No Known Allergies) Date Reviewed: 09/25/2024 Reviewed by: Ayana Zavala APRN.INTER COM INSTALLER - Fully Assessed Reason for Visit: Dexcom [...] crtg Change every 72 hours. - Insulin [place], Disposable, (BD ULTRA-FINE MARICHUY PEN NEEDLE) 32 [...] Inject 1 mg subcutaneously as needed. - xhenpf-ggnpbbmh-yoqqbtf (CREON) 24,000-76,000 -120,000 unit cpDR Take 2 [...] Encounter Status:Closed by GAYE MATA on 10/10/24 [facility] 10-04-2024 [facility] Telephone (ELIZABETHSarah) ----- MANOLO VICKERS ([id number]) 1935 M Date Time Provider Department 10/04/24 GAYE MATA During your visit today, we recorded the following information about you: Allergies As of Date: 10/04/2024 (No Known Allergies) Date Reviewed: 09/25/2024 Reviewed by: Ayana Zavala APRN.INTER COM INSTALLER - Fully Assessed Reason for Visit: Omnipod [...] 5,) crtg Change every 72 hours. - jppptc-euzonoai-cobjfzj (CREON) 24,000-76,000 -120,000 unit cpDR Take 2 [...] Encounter Status:Closed by [facility] MANOLO VICK[facility] ([id number]) 1935 M Date Time Provider Department 10/04/24 GAYE MATASarah During your visit today, we recorded the following information about you: Gaye Mata, RN 10/04/2024 4:41 PM Signed Patent called stating that he is out of Dexcom G7 CGM sensors and has been having difficulty getting the shipment from [employer], his DME supplier. Patient states he made 3 calls to them this week, one including a crop supervisor at [employer], who promised that the shipment was sent and would be received in a day or two. Advised patient to contact his provider's office to see if they are able to help as they submitted all the original paperwork to [employer] back in August and I am not sure if they are waiting on something from the office. Patient was also told to see if the provider's office had Dexcom G7 sensor samples to provide until his shipment arrives so he does not have to drive out to [facility]. Patient verbalized understanding. Allergies As of Date: 10/04/2024 (No Known Allergies) Date Reviewed: 09/25/2024 Reviewed by: Ayana Zavala APRN.INTER COM INSTALLER - Fully Assessed Reason for Visit: Dexcom [...] Inject 1 mg subcutaneously as needed. - gonapt-oukqkgwj-bmgmmhy (CREON) 24,000-76,000 -120,000 unit cpDR Take 2 [...] Encounter Status:Closed by GAYE MATA on 10/04/24 [facility] [place] 09-27-2024 [facility] Telephone ([facility]) ----- MANOLO VICKERS ([id number]) 1935 M Date Time Provider Department 09/27/24 GAYE MATA During your visit today, we recorded the following information about you: Allergies As of Date: 09/27/2024 (No Known Allergies) Date Reviewed: 09/25/2024 Reviewed by: Ayana Zavala APRN.INTER COM INSTALLER - Fully Assessed Reason for Visit: Omnipod [...] 5,) crtg Change every 72 hours. - yfwitx-nnddymwu-debsjst (CREON) 24,000-76,000 -120,000 unit cpDR Take 2 [...] Encounter Status:Closed by [facility] ----- MANOLO VICKERS ([id number]) 1935 M Date Time Provider Department 09/27[facility] During your visit today, we recorded the following information about you: Gaye Mata RN 09/27/2024 1:23 PM Signed In error Allergies As of Date: 09/27/2024 (No Known Allergies) Date Reviewed: 09/25/2024 Reviewed by: Ayana Zavala APRN.[facility] - Fully Assessed Prescriptions as of 09/27/2024 [...] 5,) crtg Change every 72 hours. - bmukne-hkontbdf-zvjpvgv (CREON) 24,000-76,000 -120,000 unit cpDR Take 2 [...] Encounter Status:Closed by GAYE MATA on 09/27/24 [facility] [place] 09-26-2024 CNP Telephone (ENDOLN) ----- MANOLO VICKERS ([id number]) 1935 M Date Time Provider Department 09/26/24 AYAAN ZAVALA ENDOLN During your visit today, we recorded the following information about you: Ayana Zavala APRN.CNP 09/26/2024 7:40 AM Signed Received page regarding critical lab result of glucose 614 mg/dL. 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 Please call patient and instruct him to be seen in the ER immediately. Erick Peguero LPN 09/26/2024 7:52 AM Signed Attempted to reach patient at both numbers listed in demo. Left urgent messages on both V Ramya Salvador RN 09/26/2024 8:20 AM Signed Pt identified by name and Pt given message below Stated understanding will take pt to [facility] Advised to f/u with endo upon release [...] re : HIPAA in in basics in MyFit does attend ov ( see 09-25-2024) Will document this in MyFit/ WeTags Erick Peguero LPN 09/26/2024 8:18 AM Signed Left message on machine to call the office. Ayana Zavala APRN.KALANI 09/26/2024 11:55 AM Addendum Provided report to [place] [facility]. Informed of BG of 614 mg/dL [...] Report to their ER Agreeable Ayana Zavala APRN.KALANI 09/26/2024 12:08 PM Addendum It appears patient has been discharged from [facility] around 10:00 AM. His blood sugar has greatly improved and is at/near range per pump report today (see below). Please reach out to patient/ to see how patient is doing. I will also have Gaye (pump labor trainer) reach out to them to review [...] I will try again later this afternoon. Erick Peguero LPN 09/27/2024 5:50 PM Signed Please see [employer] message 09/27/24 Allergies As of Date: 09/26/2024 (No Known Allergies) Date Reviewed: 09/25/2024 Reviewed by: Ayana Zavala APRN.INTER COM INSTALLER - Fully Assessed Prescriptions as of 09/27/2024 [...] 5,) crtg Change every 72 hours. - qejspy-jrwueyzg-wykjeoo (CREON) 24,000-76,000 -120,000 unit cpDR Take 2 [...] papillary mucinous (more content not included)... Normal [facility] ALBUMIN/CREATININE RATIO, UR INEon 09-25-2024 Albumin DL <= 20 mg/L (U) [Mass/Vol] 20.2 mg/L Normal [facility] Comment on above: Order Comment: Speci men Type: URINE SPECIMENOrdering Facility: [facility] Address: [address] [place] [address] Performed By: #### U ACR ####[facility] [id number] [place] [address] [place] Albumin/Creatinine (U) [Mass ratio] 106 mg/g High <30 [facility] Comment on above: Order Comment: Speci men Type: URINE SPECIMENOrdering Facility: [facility] Address: [address] [place] [address] Result Comment: Adul t Male and Female Nephrotic Criteria: <30 mg/g is considered normal to mildly increased 30-300 mg/g is considered moderately increased >300 mg/g is considered severely increased KDIGO. (2013). KDIGO 2012 Clinical Practice Guideline for the Evaluation and Management of Chronic Kidney Disease. Official Journal of the International Society of Nephrology, 3(1), 1-150. Performed By: #### U ACR ####[facility] [id number] [place] [address] [place] Creatinine (U) [Mass/Vol] 19.1 mg/dL Low 20.0-300.0 [facility] Comment on above: Order Comment: Speci men Type: URINE SPECIMENOrdering Facility: [facility] Address: [address] [place] [address] Performed By: #### U ACR ####[facility] [id number] [address] [facility] CNOVon 09-25-2024 CNOV Office Visit (ENDOLN ) ----- ISIMANOLO PORRAS ([id number]) 1935 M Date Time Provider Department 09/25/24 2:30 PM AYANA ZAVALA ENDOLN During your visit today, we recorded the following information about you: Pulse Blood pressure Weight 60/minute 162/93 63.1 kg Ayana Zavala APRN.INTER COM INSTALLER 09/26/2024 11:42 AM Addendum Endocrinology Follow Up [...] in the meantime, but 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 Per patient, this was done due to [...] by mouth once daily. Intestinal Chayo Modifiers yhjtmx-cleqvpje-klbglsg (CREON) 24,000-76,000 -120,000 unit cpDR Take 2 capsules by mouth three times daily with meals. and 1 with snacks (8/day) Digestive Enzyme Mixtures lutein-zeaxanthin 25-5 mg cap Take by mouth once daily. Alternative Therapy - Antioxidant Omeprazole Magnesium 20 mg tablet Take 20 mg by mouth. Gastric Acid Secretion Reactor Service Operator - Proton Pump Inhibitors (PPIs) PARoxetine (PAXIL) 40 mg tablet Take 40 mg by mouth every morning. Antidepressant - Selective Serotonin Reuptake Inhibitors (SSRIs) tamsulosin (more content not included)... Normal [facility] Comprehensive metabolic 2000 panelon 09-25-2024 Albumin [Mass/Vol] 3.9 g/dL Normal 3.9-4.9 [facility] Comment on above: Order Comment: Speci men Type: BLOOD SPECIMEN [facility] Address: [address] [place] [address] Performed By: #### 2 4323-8, LIPNF #### [facility] CLIA [id number] [address] [place] [address] [place] [address] [place] ALP [Catalytic activity/Vol] 156 U/L High 38-113 [facility] Comment on above: Order Comment: Speci men Type: BLOOD SPECIMEN [facility] Address: [address] [place] [address] Performed By: #### 2 4323-8, LIPNF #### [facility] CLIA [id number] [address] [place] [address] [place] ALT [Catalytic activity/Vol] 43 U/L Normal 10-54 [facility] Comment on above: Order Comment: Speci men Type: BLOOD SPECIMEN [facility] Address: [address] [place] [address] Performed By: #### 2 4323-8, LIPNF #### [facility] CLIA [id number] [address] [place] [address] [place] Anion gap [Moles/Vol] 17 mmol/L High 8-15 [facility] Comment on above: Order Comment: Speci men Type: BLOOD SPECIMEN [facility] Address: [address] [place] [address] Performed By: #### 2 4323-8, LIPNF #### [facility] CLIA [id number] [address] [place] [address] [place] AST [Catalytic activity/Vol] 76 U/L High 14-40 [facility] Comment on above: Order Comment: Speci men Type: BLOOD SPECIMEN [facility] Address: [address] [place] [address] Performed By: #### 2 4323-8, LIPNF #### [facility] CLIA [id number] [address] [place] [address] [place] Bilirubin [Mass/Vol] 0.5 mg/dL Normal 0.2-1.3 [facility] Comment on above: Order Comment: Speci men Type: BLOOD SPECIMEN [facility] Address: [address] [place] [address] Performed By: #### 2 4323-8, LIPNF #### [facility] CLIA [id number] [address] [place] [address] [place] Calcium [Mass/Vol] 9.3 mg/dL Normal 8.5-10.2 [facility] Comment on above: Order Comment: Speci men Type: BLOOD SPECIMEN [facility] Address: [address] [place] [address] Performed By: #### 2 4323-8, LIPNF #### [facility] CLIA [id number] [address] [place] [address] [place] Chloride [Moles/Vol] 86 mmol/L Low 98-107 [facility] Comment on above: Order Comment: Speci men Type: BLOOD SPECIMEN [facility] Address: [address] [place] [address] Performed By: #### 2 4323-8, LIPNF #### [facility] CLIA [id number] [address] [place] [address] [place] CO2 [Moles/Vol] 24 mmol/L Normal 22-30 [facility] Comment on above: Order Comment: Speci men Type: BLOOD SPECIMEN [facility] Address: [address] [place] [address] Performed By: #### 2 4323-8, LIPNF #### [facility] CLIA [id number] [address] [place], [place] [address] [place] Creatinine [Mass/Vol] 1.09 mg/dL Normal 0.73-1.22 [facility] Comment on above: Order Comment: Speci men Type: BLOOD SPECIMEN [facility] Address: [address] [place], [place] [address] Performed By: #### 2 4323-8, LIPNF #### [facility] CLIA [id number] [address] [place], [place] [address] [place] Creatinine and Glomerular filtration rate.predicted panel (S/P/Bld) 66 mL/min/1.73m??? Normal >=60 [facility] Comment on above: Order Comment: Latonya an Type: BLOOD SPECIMEN [facility] Address: [address] [place] [address] Result Comment: Ivy mated Glomerular Filtration Rate [...] accurately reflect actual GFR. Performed By: #### 2 4323-8, LIPNF #### [facility] CLIA [id number] [address] [place] [address] [place] Glucose [Mass/Vol] 614 mg/dL High 74-99 [facility] Comment on above: Order Comment: Latonya an Type: BLOOD SPECIMEN [facility] Address: [address] [place] [address] Result Comment: The [place] Diabetes Association (ADA) provides guidance for cutoff [...] Standards of Medical Care in Diabetes 2016, [place] Diabetes Association. Diabetes Care. 2016.39(Suppl 1). Performed By: #### 2 4323-8, LIPNF #### [facility] CLIA [id number] [address] [place] [address] [place] Potassium [Moles/Vol] 5.2 mmol/L High 3.7-5.1 [facility] Comment on above: Order Comment: Speci men Type: BLOOD SPECIMEN [facility] Address: [address] [place] [address] Performed By: #### 2 4323-8, LIPNF #### [facility] CLIA [id number] [address] [place] [address] [place] Protein [Mass/Vol] 7.1 g/dL Normal 6.3-8.0 [facility] Comment on above: Order Comment: Speci men Type: BLOOD SPECIMEN [facility] Address: [address] [place] [address] Performed By: #### 2 4323-8, LIPNF #### [facility] CLIA [id number] [address] [place] [address] [place] Sodium [Moles/Vol] 127 mmol/L Low 136-144 [facility] Comment on above: Order Comment: Speci men Type: BLOOD SPECIMEN [facility] Address: [address] [place] [address] Performed By: #### 2 4323-8, LIPNF #### [facility] CLIA [id number] [address] [place] [address] [place] Urea nitrogen [Mass/Vol] 37 mg/dL High 9-24 [facility] Comment on above: Order Comment: Speci men Type: BLOOD SPECIMEN [facility] Address: [address] [place] [address] Performed By: #### 2 4323-8, LIPNF #### [facility] CLIA [id number] [address] [place] [address] [place] LIPID PANEL, NONFASTINGon Cholesterol [Mass/Vol] 144 mg/dL Normal <200 [facility] Comment on above: Order Comment: Speci men Type: BLOOD SPECIMEN [facility] Address: [address] [place], [place] [address] Result Comment: <200 mg/dL, Desirable 200-239 mg/dL, Borderline high >239 mg/dL, High Performed By: #### 2 4323-8, LIPNF #### [facility] CLIA [id number] [address] [facility] [place] [address] [place] HDL CHOLESTEROL, NF 51 mg/dL Normal >[address] [facility] Comment on above: Order Comment: Latonya men Type: BLOOD SPECIMEN [facility] Address: [address] [place] [address] Result Comment: 40-5 9 mg/dL, Acceptable >59 mg/dL, High: Negative risk factor for coronary heart disease <40 mg/dL, Low: Positive risk factor for coronary heart disease Performed By: #### 2 4323-8, LIPNF #### [facility] CLIA [id number] [address] [facility] [address] [address] [facility] LDL CHOLESTEROL, NF 59 mg/dL Normal <[address] [facility] Comment on above: Order Comment: Latonya an Type: BLOOD SPECIMEN [facility] Address: [address] [place] [address] Result Comment: <100 mg/dL, Optimal 100-129 mg/dL, Near optimal/above optimal 130-159 mg/dL, Borderline high 160-189 mg/dL, High >189 mg/dL, Very high Secondary prevention optimal LDL Cholesterol levels are recommended to be < 70 mg/dL Performed By: #### 2 4323-8, LIPNF #### [facility] CLIA [id number] [address] [facility] [address] [address] [place] LDL/HDL RATIO, NF 1.16 mg/dL Normal <2.54 [facility] Comment on above: Order Comment: Latonya men Type: BLOOD SPECIMEN [facility] Address: [address] [place] [address] Result Comment: Refe rence: 1. National Cholesterol Education Program ATP III Guideline At-A-Glance Quick Desk Reference: National Heart, Lung, and Blood [place]. National Institutes of Health. 2001: NIH Publication No. 01-3305. 2. An International Atherosclerosis Society position paper: global recommendations for the management of dyslipidemia: executive summary, Atherosclerosis. 2014: 232(2):410-413. Performed By: #### 2 4323-8, LIPNF #### [facility] CLIA [id number] [address] [place] [address] [place] NON HDL CHOL, NF 93 mg/dL Normal <130 [facility] Comment on above: Order Comment: Specdarlene an Type: BLOOD SPECIMEN [facility] Address: [address] [place] [address] Result Comment: <130 mg/dL, Optimal 130-159 mg/dL, Near optimal/above optimal 160-189 mg/dL, Borderline high 190-219 mg/dL, High >219 mg/dL, Very high Secondary prevention optimal non HDL Cholesterol levels are recommended to be <100 mg/dL Performed By: #### 2 4323-8, LIPNF #### [facility] CLIA [id number] [address] [place] [address] [place] T CHOL/HDL RATIO NF 2.82 mg/dL Normal <5.[address] [facility] Comment on above: Order Comment: Latonya an Type: BLOOD SPECIMEN [facility] Address: [address] [place] [address] Performed By: #### 2 4323-8, LIPNF #### [facility] CLIA [id number] [address] [place] [address] [place] TRIGLYCERIDES, NF 168 mg/dL High <150 [facility] Comment on above: Order Comment: Latonya an Type: BLOOD SPECIMEN [facility] Address: [address] [place] [address] Result Comment: <150 mg/dL, Normal 150-199 mg/dL, Borderline high 200-499 mg/dL, High >499 mg/dL, Very high Performed By: #### 2 4323-8, LIPNF #### [facility] CLIA [id number] [address] [place] [address] [place] VLDL CHOLESTEROL, NF 34 mg/dL High <30 [facility] Comment on above: Order Comment: Speci men Type: BLOOD SPECIMEN [facility] Address: [address] [place] [address] Performed By: #### 2 4323-8, LIPNF #### [facility] CLIA [id number] [address] [place] [address] [place] 09-22-2024 [facility] ----- MANOLO VICKERS ([id number]) 1935 M Date Time Provider Department 09/22/24 [...] Date Reviewed: 07/06/2024 Reviewed by: Ayana Zavala APRN.INTER COM INSTALLER - Fully Assessed Prescriptions as of 09/22/2024 [...] 5,) crtg Change every 72 hours. - kbvdsz-wngvzqaw-tppbhdp (CREON) 24,000-76,000 -120,000 unit cpDR Take 2 [...] Encounter Status:Closed by GAYE MATA on 09/22/24 [facility] Telephone ([facility]IZABETHSarah) ----- MANOLO VICKERS ([id number]) 1935 M Date Time Provider Department 09/22/24 [...] Date Reviewed: 07/06/2024 Reviewed by: Ayana Zavala APRN.INTER COM INSTALLER - Fully Assessed Reason for Visit: Omnipod [...] 5,) crtg Change every 72 hours. - jfrdrc-rncpruaw-tkitcij (CREON) 24,000-76,000 -120,000 unit cpDR Take 2 [...] Encounter Status:Closed by GAYE MATA on 09/22/24 [facility] 09-21-2024 [facility] ----- MANOLO VICKERS ([id number]) 1935 M Date Time Provider Department 09/21/24 GAYE MATASarah During your visit today, we recorded the following information about you: Allergies As of Date: 09/21/2024 (No Known Allergies) Date Reviewed: 07/06/2024 Reviewed by: Ayana Zavala APRN.CNP - Fully Assessed Reason for Visit: Omipod [...] 5,) crtg Change every 72 hours. - xnlhgi-khtjezlc-rhjtigm (CREON) 24,000-76,000 -120,000 unit cpDR Take 2 [...] Status:Closed by GAYE MATA on 09/21/24 Normal [facility] ALL BASIC METABOLIC PANELon 09-13-2024 Anion gap [Moles/Vol] 13.1 mmol/L [facility] Calcium [Mass/Vol] 9 mg/dL 8.5 - 10. 1 mg/dL [facility] Chloride [Moles/Vol] 99 mmol/L 98 - 10 7 mmol/L [facility] CO2 [Moles/Vol] 31.2 mmol/L 21.0 - 32.0 mmol/L [facility] Creatinine [Mass/Vol] 1.31 mg/dL High 0.70 - 1.30 mg/dL [facility] GFR/1.73 sq M.predicted CKD-EPI (S/P/Bld) [Vol rate/Area] >60 >=60 mL/min/1.7 3m 2 [facility] Glucose [Mass/Vol] 385 mg/dL High 74 - 106 mg/dL [facility] Potassium [Moles/Vol] 4.3 mmol/L 3.5 - 5.1 mmol/L [facility] Sodium [Moles/Vol] 139 mmol/L 136 - 145 mmol/L [facility] TB EGFR-NON AF AUSTRIAN 52 Low >=60 mL/min/1.7 3m 2 [facility] Urea nitrogen [Mass/Vol] 23 mg/dL High 7.0 - 18.0 mg/dL [facility] Urea nitrogen/Creatinine [Mass ratio] 17.6 mg/mg [facility] ALL PRO BNPon 09-13-2024 NT PRO B TYPE NATRIURETIC PEPT 43691 pg/mL Critically high NINF - 1800.0 pg/mL [facility] Comment on above: RESULTS CALLED TO BE KARRIE SANDOVAL RN AT 1054 No Panel Informationon 09-13 Interpretation and review of laboratory results Abnormal [facility]ISYNC [facility] CNNURSEon 09-04-2024 CNNURSE Nurse Visit (DEMBHT) ----- MANOLO VICKERS ([id number]) 1935 M Date Time Provider Department 09/04/24 1:00 PM GAYE MATA During your visit today, we recorded the following information about you: Gaye Mata, RN 09/04/2024 3:22 PM Signed DIABETES SELF-MANAGEMENT EDUCATION AND SUPPORT FOLLOW-UP VISIT Type of Diabetes: Type 2 Location: [place] Type of visit: In person individual Types [...] Name: Insulet Omnipod? 5 System Serial Number: [id number] Sync Date: 09/04/24 Device Time Offset (hh:mm): +00:00 Device Name: Insulet Omnipod Dash? System Serial Number: [id number] Sync Date: 03/05/22 Device Time Offset (hh:mm): +00:00 Device Name: Insulet Omnipod Dash? System Serial Number: [id number] Sync Date: 11/14/21 Device Time Offset (hh:mm): +00:00 Device Name: Insulet Omnipod DASH? Owen Serial Number: Insulet Dash Sync Date: 09/19/20 Device Time Offset (hh:mm): +00:00 Device Name: Insulet Omnipod Dash? System Serial Number: [id number] Sync Date: 09/19/20 Device Time Offset (hh:mm): [...] create frequ (more content not included)... Normal [facility] [place] 08-31-2024 KALANIN Telephone (DEMT) ----- MANOLO VICKERS ([id number]) 1935 M Date Time Provider Department 2/20/25 GAYE MATA During your visit today, we recorded the following information about you: Gaye Mata, RN 08/31/2024 11:59 AM Signed Spoke with patient's regarding Omnipod 5 insulin pump start with Dexcom G7 on 09/04/24 at 1 pm. Patient is currently using DASH with reader. Advised to make sure patient brings his insulin, all login passwords for Omnipod, Glooko, and Dexcom G7, his smartphone, OmnipOnepager 5 controller phone fully charged and updated if needed so the pump start will go smoothly. requested email resent to her with instructions on day of training information to [email or web address] As of Date: 08/31/2024 (No Known Allergies) Date Reviewed: 07/06/2024 Reviewed by: Ayana Zavala APRN.INTER COM INSTALLER - Fully Assessed Reason for Visit: Appointment [...] 5,) crtg Change every 72 hours. - yqqdjg-pcoiqtfq-otaruqa (CREON) 24,000-76,000 -120,000 unit cpDR Take 2 [...] Encounter Status:Closed by GAYE MATA on 08/31/24 [facility] [place] 08-15-2024 JEVON Telephone (ENDOLN) ----- MANOLO VICKERS ([id number]) 1935 M Date Time Provider Department 08/15/24 AYANA ZAVALA During your visit today, we recorded the following information about you: Lit Goodwin MA 08/15/2024 10:24 AM Signed Received a fax from [employer] for a physician's order. Placed on Ayana's desk for signature on form and chart notes. Lit Goodwin MA 08/15/2024 11:57 AM Signed Form completed, faxed, confirmation received. Sent for scan. Allergies As of Date: 08/15/2024 (No Known Allergies) Date Reviewed: 07/06/2024 Reviewed by: Ayana Zavala APRN.INTER COM INSTALLER - Fully Assessed Reason for Visit: Forms [913] Cmt: [email or web address]- Physcians order Prescriptions as of 08/15/2024 - [...] 5,) crtg Change every 72 hours. - qzaoob-hymcipda-jqdzstr (CREON) 24,000-76,000 -120,000 unit cpDR Take 2 [...] Encounter Status:Closed by ERICK PEGUERO on 08/15/24 [facility] [place] 08-09-2024 KALANI Telephone (ENDOLN) ----- MANOLO VICKERS ([id number]) 1935 M Date Time Provider Department 08/09/24 AYANA ZAVALA During your visit today, we recorded the following information about you: Sheryl Ny MA 08/09/2024 10:39 AM Signed [facility]. Faxed [facility] note 07/06/24 to [phone]. Confirmation received. Allergies As of Date: 08/09/2024 (No Known Allergies) Date Reviewed: 07/06/2024 Reviewed by: Ayana Zavala APRN.INTER COM INSTALLER - Fully Assessed Reason for Visit: Forms [136] Cmt: Justin - LUCA note Prescriptions as [...] 5,) crtg Change every 72 hours. - otecag-xzgbylrr-rljeqkb (CREON) 24,000-76,000 -120,000 unit cpDR Take 2 [...] Encounter Status:Closed by SHERYL [place] on 08/09/24 [facility] CNNURSEon 07-25-2024 [facility] Nurse Visit (DEMBHT) ----- MANOLO VICKERS ([id number]) 1935 Date Time Provider Department 07/25/24 1:00 PM GAYE MATA During your visit today, we recorded the following information about you: Gaye Mata, KARIN 07/25/2024 5:09 PM Signed DIABETES CARE AND EDUCATION VISIT Location: [place] Type of visit: In person individual PATIENT'S [...] - - - - DEVICES Device Name: Insulyndsey Omnipod Dash? System Serial Number: [id number] Sync Date: 07/06/24 Device Time Offset (hh:mm): [...] not G7 eliane. Educator needed to call [facility] for assistance in resetting password as patient [...] terminology: basal, bolus, carb ratio, BG target, ypqpiuy-og-roori/duration , and patient did not bring insulin vials with him so we were unable to start pump today. Patient and leaving for [place] for a month tomorrow and has rescheduled [...] TOPICS: 1. Patient and to return after [place] trip to start Omnipod 5 switch from [...] have eliane (more content not included)... Normal [facility] ALL BASIC METABOLIC PANELon 07-21-2024 Anion gap [Moles/Vol] 16.6 mmol/L NO [facility] Calcium [Mass/Vol] 8.8 mg/dL 8.5 - 10. 1 mg/dL [facility] Chloride [Moles/Vol] 99 mmol/L 98 - 10 7 mmol/L [facility] CO2 [Moles/Vol] 27.6 mmol/L 21.0 - 32.0 mmol/L [facility] Creatinine [Mass/Vol] 1.12 mg/dL 0.70 - 1.30 mg/dL [facility] GFR/1.73 sq M.predicted CKD-EPI (S/P/Bld) [Vol rate/Area] >60 >=60 mL/min/1.7 3m 2 [facility] Glucose [Mass/Vol] 297 mg/dL High 74 - 106 mg/dL [facility] Interpretation and review of laboratory results Abnormal [facility] Potassium [Moles/Vol] 4.2 mmol/L 3.5 - 5.1 mmol/L [facility] Sodium [Moles/Vol] 139 mmol/L 136 - 145 mmol/L [facility] TBH EGFR-NON AF AUSTRIAN >60 >=60 mL/min/1.7 3m 2 [facility] Urea nitrogen [Mass/Vol] 22 mg/dL High 7.0 - 18.0 mg/dL [facility] Urea nitrogen/Creatinine [Mass ratio] 19.6 mg/mg [facility] CNPHaley 07-21-2024 [facility] ----- MANOLO VICKERS ([id number]) 1935 M Date Time Provider Department 07/21/24 GAYE MATA During your visit today, we recorded the following information about you: Allergies As of Date: 07/21/2024 (No Known Allergies) Date Reviewed: 07/06/2024 Reviewed by: Ayana Zavala APRN.INTER COM INSTALLER - Fully Assessed Reason for Visit: Appointment [...] 5,) crtg Change every 72 hours. - rldgyl-ybkqwkml-qbgzsvt (CREON) 24,000-76,000 -120,000 unit cpDR Take 2 [...] mucinous neoplasm) *06/23/2018 Encounter Status:Closed by GAYE MAAT on 07/21/24 Normal [facility] A1C with Estimated Average G aguedacayla 07-17-2024 Glucose [Mass/Vol] 235 mg/dL Normal [facility] Comment on above: Result Comment: PERF ORMED BY: [facility] [address] [place] [address] PATHOLOGIST CREDIT BALANCE SPECIALIST ANDRE PERALTA M.D. Performed By: #### G LULS #### Point of Care testing , HbA1c (Bld) [Mass fraction] 9.8 % High 4.3-5.6 [facility] Comment on above: Result Comment: Incr eased risk for diabetes: 5.7 - 6.4 diabetes: >6.4 glycemic control for adults with diabetes: <7.0 Performed By: #### G LULS #### Point of Care testing , Acanthocytes [Presence] in B lood by Light microscopyOrdered By: Indra Guillory on 07-17-2024 Acanthocytes LM Ql (Bld) Acanthocytes [Presence] in Blood by Light microscopy [facility] Alanine aminotransferase [En zymatic activity/volume] in Serum or PlasmaOrdered By: Indra Guillory on 07-17-2024 ALT [Catalytic activity/Vol] Alanine aminotransferase [Enzymatic activity/volume] in Serum or Plasma [facility] Albumin [Mass/volume] in Ser um or Plasma by Bromocresol green (BCG) dye binding methoOrdered By: Indra Guillory on 07-17-2024 Albumin BCG dye [Mass/Vol] Albumin [Mass/volume] in Serum or Plasma by Bromocresol green (BCG) dye binding metho 3.5-5.7 [facility] Alkaline phosphatase [Enzyma tic activity/volume] in Serum or PlasmaOrdered By: Indra Guillory on 07-17-2024 ALP [Catalytic activity/Vol] Alkaline phosphatase [Enzymatic activity/volume] in Serum or Plasma High 34-104 [facility] Anisocytosis LM Ql (Bld)Orde red By: Indra Guillory on 07-17-2024 Anisocytosis Ql (Bld) Anisocytosis [Pres ence] in Blood by Light microscopy [facility] Aspartate aminotransferase [ Enzymatic activity/volume] in Serum or PlasmaOrdered By: Indra Guillory on 07-17-2024 AST [Catalytic activity/Vol] Aspartate aminotransferase [Enzymatic activity/volume] in Serum or Plasma 13-39 [facility] Band form neutrophils/100 WB C Manual cnt (Bld)Ordered By: Indra Guillory on 07-17-2024 Band form neutrophils/100 WBC (Bld) Peripheral white blood cell differential % bands, microscopic exam 0-5 [facility] Basophils Auto (Bld) [#/Vol] Ordered By: Indra Guillory on 07-17-2024 Basophils (Bld) [#/Vol] Automated basophil count [facility] Basophils/100 WBC Auto (Bld) Ordered By: Indra Guillory on 07-17-2024 Basophils/100 WBC (Bld) Automated basophil % [facility] Bilirubin.total [Mass/volume ] in Serum or PlasmaOrdered By: Indra Guillory on 07-17-2024 Bilirubin [Mass/Vol] Bilirubin.total [Mass/volume] in Serum or Plasma 0.3-1.0 [facility] BioFire Not Detectedon 07-17 BioFire Not Detected Not detected Normal Not Detecte [facility] Comment on above: Result Comment: This is a duplicate RP2.1 COVID (PCR) result to be used for statistical tracking purpose only. PERFORMED BY: [facility] [address] [place] [address] PATHOLOGIST CREDIT BALANCE SPECIALIST ANDRE PERALTA M.D. Performed By: #### G LUMARYA #### Point of Care testing , Blood estimated average gluc ose determination by estimation from glycated hemoglobinOrdered By: Indra Guillory on 07-17-2024 Average glucose Estimated from glycated hemoglobin (Bld) [Mass/Vol] Glucose mean value [Mass/volume] in Blood Estimated from glycated hemoglobin [facility] [place] cells [Presence] in Blo od by Light microscopyOrdered By: Indra Guillory on 07-17-2024 [place] cells LM Ql (Bld) Geo cells [Prese nce] in Blood by Light microscopy [facility] COVID-19 Detected/Not Detect edOrdered By: Indra Guillory on 07-17-2024 SARS-CoV-2 (COVID-19) RNA ANASTASIA+non-probe Ql (Nph) Not detected Not Detecte [facility] Comment on above: This is a duplicate RP2.1 COVID (PCR) result to be used for statistical tracking purpose only. Calcium [Mass/volume] in Ser um or PlasmaOrdered By: Indra Guillory on 07-17-2024 Calcium [Mass/Vol] Calcium [Mass/volume ] in Serum or Plasma 8.6-10.3 [facility] Carbon dioxide, total [Moles /volume] in Serum or PlasmaOrdered By: Indra Guillory on 07-17-2024 CO2 [Moles/Vol] Carbon dioxide, tota l [Moles/volume] in Serum or Plasma 21.0-31.0 [facility] Chloride [Moles/volume] in S jihan or PlasmaOrdered By: Indra Guillory on 07-17-2024 Chloride [Moles/Vol] Chloride [Moles/vol ume] in Serum or Plasma Low 98-107 [facility] Comprehensive Metabolic Pane jairo 07-17-2024 Albumin [Mass/Vol] 3.6 g/dL Normal 3.5-5.7 [facility] Comment on above: Performed By: #### G LULS #### Point of Care testing , Albumin/Globulin [Mass ratio] 1.2 {ratio} Normal [facility] Comment on above: Performed By: #### G LULS #### Point of Care testing , ALP [Catalytic activity/Vol] 136 U/L High 34-104 [facility] Comment on above: Performed By: #### G LULS #### Point of Care testing , ALT [Catalytic activity/Vol] 18 U/L Normal 7-52 [facility] Comment on above: Performed By: #### G LULS #### Point of Care testing , Anion gap [Moles/Vol] 11.6 mmol/L Normal 6.0-15.0 [facility] Comment on above: Performed By: #### G LULS #### Point of Care testing , AST [Catalytic activity/Vol] 20 U/L Normal 13-39 [facility] Comment on above: Performed By: #### G LULS #### Point of Care testing , Bilirubin [Mass/Vol] 0.6 mg/dL Normal 0.3-1.0 [facility] Comment on above: Performed By: #### G LULS #### Point of Care testing , Calcium [Mass/Vol] 8.8 mg/dL Normal 8.6-10.3 [facility] Comment on above: Performed By: #### G LULS #### Point of Care testing , Chloride [Moles/Vol] 96 mmol/L Low 98-107 [facility] Comment on above: Performed By: #### G LULS #### Point of Care testing , CO2 [Moles/Vol] 28.2 mmol/L Normal 21.0-31.0 [facility] Comment on above: Performed By: #### G LULS #### Point of Care testing , Creatinine [Mass/Vol] 1.03 mg/dL Normal 0.70-1.30 [facility] Comment on above: Performed By: #### G LULS #### Point of Care testing , Creatinine Clr Calc Pharmacy 45.38 Normal [facility] Comment on above: Result Comment: PERF ORMED BY: [facility] [address] [place] [address] PATHOLOGIST CREDIT BALANCE SPECIALIST ANDRE PERALTA M.D. Performed By: #### G LULS #### Point of Care testing , GFR/1.73 sq M.predicted MDRD (S/P/Bld) [Vol rate/Area] mL/min/{1.73_m2} Normal [facility] Comment on above: Performed By: #### G LULS #### Point of Care testing , Globulin (S) [Mass/Vol] 3.0 g/dL Normal [facility] Comment on above: Performed By: #### G LULS #### Point of Care testing , Glucose [Mass/Vol] 443 mg/dL Significant change up 70-100 [facility] Comment on above: Result Comment: [place] Glucose Reference Range is dependent on time and content of last meal. Glucose of more than 200 mg/dL in a nonstressed, ambulatory subject supports the diagnosis of Diabetes Mellitus. ADA recommended reference range Performed By: #### G LULS #### Point of Care testing , Potassium [Moles/Vol] 4.8 mmol/L Normal 3.5-5.1 [facility] Comment on above: Performed By: #### G LULS #### Point of Care testing , Protein [Mass/Vol] 6.6 g/dL Normal 6.4-8.9 [facility] Comment on above: Performed By: #### G LULS #### Point of Care testing , Sodium [Moles/Vol] 131 mmol/L Low 136-145 [facility] Comment on above: Performed By: #### G LULS #### Point of Care testing , Urea nitrogen [Mass/Vol] 20 mg/dL Normal 7-25 [facility] Comment on above: Performed By: #### G LULS #### Point of Care testing , Creatinine [Mass/volume] in Serum or PlasmaOrdered By: Indra Guillory on 07-17-2024 Creatinine [Mass/Vol] Creatinine [Mass/v olume] in Serum or Plasma 0.70-1.30 [facility] Diff and CBCon 07-17-2024 Acanthocytes Marked Normal [facility] Comment on above: Performed By: #### G LULS #### Point of Care testing , Anisocytosis Ql (Bld) Moderate Normal [facility] Comment on above: Performed By: #### G LULS #### Point of Care testing , Band form neutrophils/100 WBC (Bld) 1 % Normal 0-5 [facility] Comment on above: Performed By: #### G LULS #### Point of Care testing , Crenated RBC Moderate Normal [facility] Comment on above: Performed By: #### G LULS #### Point of Care testing , Erythrocyte distribution width (RBC) [Ratio] 19.7 % High 12.0-14.8 [facility] Comment on above: Performed By: #### G LULS #### Point of Care testing , Helmet Cells Slight Normal [facility] Comment on above: Performed By: #### G LULS #### Point of Care testing , Hematocrit (Bld) [Volume fraction] 37.8 % Low 38.8-50.0 [facility] Comment on above: Performed By: #### G LULS #### Point of Care testing , Hemoglobin (Bld) [Mass/Vol] 12.4 g/dL Low 13.0-17.0 [facility] Comment on above: Performed By: #### G LULS #### Point of Care testing , Hypochromasia Marked Normal [facility] Comment on above: Performed By: #### G LULS #### Point of Care testing , Lymphocytes/100 WBC (Bld) 18 % Normal 18-42 [facility] Comment on above: Performed By: #### G LULS #### Point of Care testing , MCH (RBC) [Entitic mass] 26.3 pg Low 27.5-35.2 [facility] Comment on above: Performed By: #### G LULS #### Point of Care testing , MCV (RBC) [Entitic vol] 80.0 fL Low 83.5-101 [facility] Comment on above: Performed By: #### G LULS #### Point of Care testing , Mean Corpuscular HGB Conc 32.8 g/dL Normal 32.5-35.6 [facility] Comment on above: Performed By: #### G LULS #### Point of Care testing , Microcytosis Slight Normal [facility] Comment on above: Performed By: #### G LULS #### Point of Care testing , Monocytes/100 WBC (Bld) 4 % Normal 2-11 [facility] Comment on above: Performed By: #### G LULS #### Point of Care testing , Platelet Estimate Normal Normal Normal [facility] Comment on above: Performed By: #### G LULS #### Point of Care testing , Platelet mean volume (Bld) [Entitic vol] 11.0 fL High 6.6-10.1 [facility] Comment on above: Performed By: #### G LULS #### Point of Care testing , Platelet Morphology Normal Normal Normal [facility] Comment on above: Result Comment: PERF ORMED BY: [facility] [address] PATHOLOGIST CREDIT BALANCE SPECIALIST ANDRE PERALTA M.D. Performed By: #### G LULS #### Point of Care testing , Platelets (Bld) [#/Vol] 229 10*3/uL Normal 150-450 [facility] Comment on above: Performed By: #### G LULS #### Point of Care testing , Poikilocytosis Marked Normal [facility] Comment on above: Performed By: #### G LULS #### Point of Care testing , Polychromasia Slight Normal [facility] Comment on above: Performed By: #### G LULS #### Point of Care testing , RBC (Bld) [#/Vol] 4.73 10*6/uL Normal 3.90-5.60 [facility] Comment on above: Performed By: #### G LULS #### Point of Care testing , Schistocytes Moderate Normal [facility] Comment on above: Performed By: #### G LULS #### Point of Care testing , Segmented neutrophils/100 WBC (Bld) 77 % High 50-70 [facility] Comment on above: Performed By: #### G LULS #### Point of Care testing , Target Cells Moderate Normal [facility] Comment on above: Performed By: #### G LULS #### Point of Care testing , WBC (Bld) [#/Vol] 4.8 10*3/uL Normal 4.1-10.5 [facility] Comment on above: Performed By: #### G LULS #### Point of Care testing , Eosinophils Auto (Bld) [#/Vo l]Ordered By: Indra Guillory on 07-17-2024 Eosinophils (Bld) [#/Vol] Automated eosinophil count [facility] Eosinophils/100 WBC Auto (Bl d)Ordered By: Indra Guillory on 07-17-2024 Eosinophils/100 WBC (Bld) Automated eosinophil % [facility] Erythrocyte distribution wid th Auto (RBC) [Ratio]Ordered By: Indra Guillory on 07-17-2024 Erythrocyte distribution width (RBC) [Ratio] Erythrocyte distribution width [Ratio] by Automated count High 12.0-14.8 [facility] Erythrocyte morphology findi ng [Identifier] in BloodOrdered By: Indra Guillory on 07-17-2024 RBC morphology finding Nom (Bld) RBC morphology [facility] Globulin Calc (S) [Mass/Vol] Ordered By: Indra Guillory on 07-17-2024 Globulin (S) [Mass/Vol] Serum globulin measurement by calculation (mass/volume) [facility] Glucose Glucometer (BldC) [M ass/Vol]Ordered By: Lisa Hidalgo on 07-17-2024 Glucose [Mass/Vol] Capillary blood gluc ose measurement by glucometer (mass/volume) [facility] Comment on above: Random Glucose Refer ence Range is dependent on time and content of last meal. Glucose of more than 200 mg/dL in a nonstressed, ambulatory subject supports the diagnosis of Diabetes Mellitus. Glucose Poct Glucometerson 0 07-17-2024 Glucose [Mass/Vol] 299 mg/dL Normal [facility] Comment on above: Result Comment: [facility] Glucose Reference Range is dependent on time and content of last meal. Glucose of more than 200 mg/dL in a nonstressed, ambulatory subject supports the diagnosis of Diabetes Mellitus. PERFORMED BY: [address] [place] [address] PATHOLOGIST CREDIT BALANCE SPECIALIST ANDRE PERALTA M.D. Performed By: #### G LULS ####Point of Care testing, Glucose [Mass/Vol] 341 mg/dL Normal [facility] Comment on above: Result Comment: [facility] Glucose Reference Range is dependent on time and content of last meal. Glucose of more than 200 mg/dL in a nonstressed, ambulatory subject supports the diagnosis of Diabetes Mellitus. PERFORMED BY: [facility] [address] [place] [address] PATHOLOGIST CREDIT BALANCE SPECIALIST ANDRE PERALTA M.D. Performed By: #### G LULS #### Point of Care testing , Glucose [Mass/Vol] 386 mg/dL Normal [facility] Comment on above: Result Comment: [place] om Glucose Reference Range is dependent on time and content of last meal. Glucose of more than 200 mg/dL in a nonstressed, ambulatory subject supports the diagnosis of Diabetes Mellitus. PERFORMED BY: [place] [address] PATHOLOGIST CREDIT BALANCE SPECIALIST ANDRE PERALTA M.D. Performed By: #### G LULS ####Point of Care testing, Commemt1 Normal [facility] Comment on above: Result Comment: Glu2 : Will Repeat Test Performed By: #### G LULS #### Point of Care testing , Commemt2 WILL NOTIFY DR/KARIN Normal [facility] Comment on above: Performed By: #### G LULS #### Point of Care testing , Commemt3 Cleaned Meter Normal [facility] Comment on above: Result Comment: PERF ORMED BY: [facility] [address] [place] [address] PATHOLOGIST CREDIT BALANCE SPECIALIST ANDRE PERALTA M.D. Performed By: #### G LULS #### Point of Care testing , Glucose [Mass/Vol] 406 mg/dL Off scale high Th e [facility] Comment on above: Result Comment: [place] om Glucose Reference Range is dependent on time and content of last meal. Glucose of more than 200 mg/dL in a nonstressed, ambulatory subject supports the diagnosis of Diabetes Mellitus. Performed By: #### G LULS #### Point of Care testing , Commemt1 Normal [facility] Comment on above: Result Comment: Glu2 : WILL NOTIFY DR/RN PERFORMED BY: [place] [address] PATHOLOGIST CREDIT BALANCE SPECIALIST ANDRE PERALTA M.D. Performed By: #### G LULS #### Point of Care testing , Glucose [Mass/Vol] 451 mg/dL Off scale high Th e [facility] Comment on above: Result Comment: [place] om Glucose Reference Range is dependent on time and content of last meal. Glucose of more than 200 mg/dL in a nonstressed, ambulatory subject supports the diagnosis of Diabetes Mellitus. Performed By: #### G LULS #### Point of Care testing , Commemt1 Normal [facility] Comment on above: Result Comment: Glu2 : Will Repeat Test PERFORMED BY: [facility] [address] PATHOLOGIST CREDIT BALANCE SPECIALIST ANDRE PERALTA M.D. Performed By: #### G LULS #### Point of Care testing , Glucose [Mass/Vol] 444 mg/dL Off scale high Th e [facility] Comment on above: Result Comment: [place] om Glucose Reference Range is dependent on [...] Serum or Plasma Invalid Interpretation Code 70-100 [facility] Comment on above: Delta: 191 on -1230ADA recommended reference rangeRandom Glucose Reference Range is dependent on time and content of last meal. Glucose of more than 200 mg/dL in a nonstressed, ambulatory subject supports the diagnosis of Diabetes Mellitus. Helmet cells [Presence] in B lood by Light microscopyOrdered By: Indra Guillory on 07-17-2024 Helmet cells LM Ql (Bld) Helmet cell detection [facility] Hematocrit Auto (Bld) [Volum e fraction]Ordered By: Indra Guillory on 07-17-2024 Hematocrit (Bld) [Volume fraction] Hematocrit [Volume Fraction] of Blood by Automated count Low 38.8-50.0 [facility] Hemoglobin A1c/Hemoglobin.to chrissy in BloodOrdered By: Indra Guillory on 07-17-2024 HbA1c (Bld) [Mass fraction] Hemoglobin A1c percentage High 4.3-5.6 [facility] Comment on above: Increased risk for d iabetes: 5.7 - 6.4diabetes: >6.4glycemic control for adults with diabetes: <7.0 Hemoglobin [Mass/volume] in BloodOrdered By: Indra Guillory on 07-17-2024 Hemoglobin (Bld) [Mass/Vol] Hemoglobin [Mass/volume] in Blood Low 13.0-17.0 [facility] Hypochromia LM Ql (Bld)Order ed By: Indra Guillory on 07-17-2024 Hypochromia Ql (Bld) Hypochromia [Presen ce] in Blood by Light microscopy [facility] INR in Platelet poor plasma by Coagulation assayOrdered By: Indra Guillory on 07-17-2024 INR Coag (PPP) [Relative time] INR in Platelet poor plasma by Coagulation assay [facility] Comment on above: INR Therapeutic Rang e [...] L ----- Specimen: [id number] Received: 07/17/24 Status: LOVESarah Vivas Num: [id number] Spec Type: Impression Subm Dr: Indra Guillory MD Tissues: PATHPER Procedures: PATHREVIEW Age/ Patient Sex Location Account Attending Physician Manolo Vickers 89/M 4N [id number] Lisa Hidalgo MD SPEC NUM: [id number] RECD: 07/17/2452 STATUS: LYUDMILA VIVAS NUM: [id number] MARANDA: 07/17/24- SUBM DR: Indra Guillory MD ENTERED: 07/17/24 ARMANI WONG: DARREN TYPE: Impression DEPT: TN ORDERED: PATHREVIEW ORDERED: PATHREVIEW Pathologist Review Abnormal [...] CBC laboratory follow- ups are also suggested [facility] [id number] Specimen: [id number] Received: 07/17/24 Status: LYUDMILA Vivas Num: [id number] Spec Type: Impression Subm Dr: Indra Guillory MD Tissues: PATHPER Procedures: PATHREVIEW Patient: Manolo Vickers [id number] (Continued) Specimen: [id number] Received: 07/17/24 (Continued) Signed (signature on file) Donovan Bunch MD 07/17/24 1128 Specimen: Received: 07/17/24 Status: LYUDMILA Vivas Num: [id number] Spec Type: Impression Subm Dr: Indra Guillory MD Tissues: PATHPER Procedures: PATHREVIEW Patient: Manolo Vickers Khoi [id number] (Continued) Specimen: Received: 07/17/24 (Continued) CBC Date Time Test Result Flag (u) Normal Range 07/16/24 1230 Neut % (Auto) 64.8 . % Lymp % (Auto) 18.9 . % [place] % (Auto) 12.8 . % Eos % (Auto) 2.7 . % Baso % (Auto) 0.8 . % NRBC% 0.2 0-0.5 /100 WBC Neut # (Auto) 4.7 1.8-7.7 x10E3/uL Lymph # (Auto) 1.4 1.00-4.8 x10E3/uL [place] # (Auto) 0.9 H 0.0-0.8 x10E3/uL Eos [...] 1 0-5 % Lymph 18 18-42 % [place] 4 2-11 % Polychrom Slight Hypochrom Marked Poik Marked Aniso Moderate Micro Slight Schisto Moderate Target Moderate Helmet Cells Slight Crenated RBC Moderate Acantho Marked Plt Est Normal Normal Plt Morphology Normal Normal Specimen: [id number] Received: 07/17/24 Status: LYUDMILA Rico Num: [id number] Spec Type: Impression Subm Dr: Indra Guillory MD Tissues: PATHPER Procedures: PATHREVIEW Patient: Manolo Vickers [id number] (Continued) Signed (signature on file) Donovan Bunch (more content not included)... Normal [facility] Leukocytes [#/volume] correc robert for nucleated erythrocytes in Blood by Automated counOrdered By: Indra Guillory on 07-17-2024 WBC corrected for nucl RBC Auto (Bld) [#/Vol] Leukocytes [#/volume] corrected for nucleated erythrocytes in Blood by Automated coun 4.1-10.5 [facility] Lymphocytes Auto (Bld) [#/Vo l]Ordered By: Indra Guillory on 07-17-2024 Lymphocytes (Bld) [#/Vol] Lymphocytes [#/volume] in Blood by Automated count [facility] Lymphocytes/100 WBC Auto (Bl d)Ordered By: nIdra Guillory on 07-17-2024 Lymphocytes/100 WBC (Bld) Lymphocytes/100 leukocytes in Blood by Automated count [facility] Lymphocytes/100 WBC Manual c nt (Bld)Ordered By: Indra Guillory on 07-17-2024 Lymphocytes/100 WBC (Bld) Lymphocytes/100 leukocytes in Blood by Manual count 18-42 [facility] MCH Auto (RBC) [Entitic mass ]Ordered By: Indra Guillory on 07-17-2024 MCH (RBC) [Entitic mass] MCH [Entitic mass] by Automated count Low 27.5-35.2 [facility] MCHC Auto (RBC) [Mass/Vol]Or dered By: Indra Guillory on 07-17-2024 MCHC (RBC) [Mass/Vol] MCHC [Mass/volume] by Automated count 32.5-35.6 [facility] MCV Auto (RBC) [Entitic vol] Ordered By: Indra Guillory on 07-17-2024 MCV (RBC) [Entitic vol] MCV [Entitic volume] by Automated count Low 83.5-101 [facility] Microcytes LM Ql (Bld)Ordere d By: Indra Guillory on 07-17-2024 Microcytes Ql (Bld) Microcytes [Presence ] in Blood by Light microscopy [facility] Monocytes Auto (Bld) [#/Vol] Ordered By: Indra Guillory on 07-17-2024 Monocytes (Bld) [#/Vol] Automated blood monocyte count [facility] Monocytes/100 WBC Auto (Bld) Ordered By: Indra Guillory on 07-17-2024 Monocytes/100 WBC (Bld) Automated monocyte % [facility] Monocytes/100 WBC Manual cnt (Bld)Ordered By: Indra Guillory on 07-17-2024 Monocytes/100 WBC (Bld) Monocytes/100 leukocytes in Blood by Manual count 2-11 [facility] Neutrophils Auto (Bld) [#/Vo l]Ordered By: Indra Guillory on 07-17-2024 Neutrophils (Bld) [#/Vol] Neutrophils [#/volume] in Blood by Automated count [facility] Neutrophils/100 WBC Auto (Bl d)Ordered By: Indra Guillory on 07-17-2024 Neutrophils/100 WBC (Bld) Automated neutrophil % [facility] No Panel InformationOrdered By: Indra Guilolry on 07-17-2024 Bedside Glucose #[address]/rn [facility] Bedside Glucose #3 Comment Cleaned meter [facility] Bedside Glucose Comment See comment [facility] Comment on above: Glu2: Will Repeat Te st Estimated GFR (CKD-EPI) > 60.0 mL/Min [facility] Creatinine Clearance (Chem 45.38 [facility] Slides for Pathologist Review Ordered path review [facility] Nucleated erythrocytes [Pres ence] in Blood by Automated countOrdered By: Indra Guillory on 07-17-2024 Nucleated RBC Auto Ql (Bld) Nucleated erythrocytes [Presence] in Blood by Automated count [facility] Partial Thromboplastin Timeo n 07-17-2024 aPTT Coag (Bld) [Time] 30.6 s Normal 25.1-36.5 [facility] Comment on above: Result Comment: A he matocrit value greater than 55% may lead to inaccurate results in coagulation testing. Patients having hematocrit values >55% require a special collection tube for coagulation studies. Please contact the laboratory at [phone] for redraw instructions. PERFORMED BY: [address] [place] [address] PATHOLOGIST CREDIT BALANCE SPECIALIST ANDRE PERALTA M.D. Performed By: #### G LULS #### Point of Care testing , Pathologist Slide Reviewon 0 07-17-2024 Pathologist Slide Review Ordered Path Review Normal [facility] Comment on above: Result Comment: PERF ORMED BY: [facility] [address] [place] [address] PATHOLOGIST CREDIT BALANCE SPECIALIST ANDRE PERALTA M.D. Performed By: #### G LULS #### Point of Care testing , Pathology study report docum entOrdered By: Donovan Bunch on 07-17-2024 Pathology study [facility] Other Platelet adequacy [Presence] in Blood by Light microscopyOrdered By: Indra Guillory on 07-17-2024 Platelets LM Ql (Bld) Platelet adequacy [Presence] in Blood by Light microscopy Normal [facility] Platelet mean volume Auto (B ld) [Entitic vol]Ordered By: Indra Guillory on 07-17-2024 Platelet mean volume (Bld) [Entitic vol] Platelet mean volume [Entitic volume] in Blood by Automated count High 6.6-10.1 [facility] Platelet morphology finding [Identifier] in BloodOrdered By: Indra Guillory on 07-17-2024 Platelet morphology finding Nom (Bld) Platelet morphology finding [Identifier] in Blood Normal [facility] Platelets Auto (Bld) [#/Vol] Ordered By: Indra Guillory on 07-17-2024 Platelets (Bld) [#/Vol] Platelets [#/volume] in Blood by Automated count 150-450 [facility] Poikilocytosis [Presence] in Blood by Light microscopyOrdered By: Indra Guillory on 07-17-2024 Poikilocytosis LM Ql (Bld) Poikilocytosis [Presence] in Blood by Light microscopy [facility] Polychromasia [Presence] in Blood by Light microscopyOrdered By: Indra Guillory on 07-17-2024 Polychromasia LM Ql (Bld) Polychromasia [Presence] in Blood by Light microscopy [facility] Potassium [Moles/volume] in Serum or PlasmaOrdered By: Indra Guillory on 07-17-2024 Potassium [Moles/Vol] Potassium [Moles/v olume] in Serum or Plasma 3.5-5.1 [facility] Protein [Mass/volume] in Ser um or PlasmaOrdered By: Indra Guillory on 07-17-2024 Protein [Mass/Vol] Protein [Mass/volume ] in Serum or Plasma 6.4-8.9 [facility] Prothrombin Time INRon 07-17 INR Coag (PPP) [Relative time] 1.3 {INR} Normal [facility] Comment on above: Result [...] 3 - 4.5 Performed By: #### G LUMARYA #### Point of Care testing , PT Coag (PPP) [Time] 14.5 s High 9.0-12.9 [facility] Comment on above: Result Comment: A he matocrit value greater than 55% may lead to inaccurate results in coagulation testing. Patients having hematocrit values >55% require a special collection tube for coagulation studies. Please contact the laboratory at [phone] for redraw instructions. Performed By: #### G LULS #### Point of Care testing , Prothrombin time (PT)Ordered By: Indra Guillory on 07-17-2024 PT Coag (PPP) [Time] Prothrombin time (PT) High 9.0- 12.9 [facility] Comment on above: A hematocrit value g reater than 55% may lead to inaccurate results in coagulation testing. Patients having hematocrit values >55% require a special collection tube for coagulation studies. Please contact the laboratory at [phone] for redraw instructions. RBC Auto (Bld) [#/Vol]Ordere d By: Indra Guillory on 07-17-2024 RBC (Bld) [#/Vol] Erythrocytes [#/volu me] in Blood by Automated count 3.90-5.60 [facility] Respiratory (Upper) Panel, P CRon 07-17-2024 Respiratory [...] A H3 Blank Space ---- PERFORMED BY: [facility] [address] PATHOLOGIST CREDIT BALANCE SPECIALIST ANDER PERALTA M.D. Normal [facility] Comment on above: Performed By: #### G LULS #### Point of Care testing , Respiratory pathogens DNA an d RNA panel - Nasopharynx by ANASTASIA with non-probe detectionOrdered By: Indra Guillory on 07-17-2024 Respiratory pathogens DNA and RNA panel ANASTASIA+non-probe (Nph) Respiratory pathogens DNA and RNA panel - Nasopharynx by ANASTASIA with non-probe detection [facility] Respiratory pathogens DNA and RNA panel ANASTASIA+non-probe (Nph) Respiratory pathogens DNA and RNA panel - Nasopharynx by ANASTASIA with non-probe detection [facility] Schistocytes [Presence] in B lood by Light microscopyOrdered By: Indra Guillory on 07-17-2024 Schistocytes LM Ql (Bld) Schistocytes [Presence] in Blood by Light microscopy [facility] Segmented neutrophils/100 WB C Manual cnt (Bld)Ordered By: Indra Guillory on 07-17-2024 Segmented neutrophils/100 WBC (Bld) Manual blood segmented neutrophils/100 leukocytes High 50-70 [facility] Serum or plasma albumin/glob ulin mass ratioOrdered By: Indra Guillory on 07-17-2024 Albumin/Globulin [Mass ratio] Serum or plasma albumin/globulin mass ratio [facility] Serum or plasma anion gap de terminationOrdered By: Indra Guillory on 07-17-2024 Anion gap [Moles/Vol] Serum or plasma an ion gap determination 6.0-15.0 [facility] Sodium [Moles/volume] in Ser um or PlasmaOrdered By: Indra Guillory on 07-17-2024 Sodium [Moles/Vol] Sodium [Moles/volume ] in Serum or Plasma Low 136-145 [facility] Target cells [Presence] in B lood by Light microscopyOrdered By: Indra Guillory on 07-17-2024 Target cells LM Ql (Bld) Target cells [facility] Urea nitrogen [Mass/volume] in Serum or PlasmaOrdered By: Indra Guillory on 07-17-2024 Urea nitrogen [Mass/Vol] Urea nitrogen [Mass/volume] in Serum or Plasma 7-25 [facility] WBC Auto (Bld) [#/Vol]Ordere d By: Indra Guillory on 07-17-2024 WBC (Bld) [#/Vol] Leukocytes [#/volume ] in Blood by Automated count 4.1-10.5 [facility] aPTT in Platelet poor plasma by Coagulation assayOrdered By: Indra Guillory on 07-17-2024 aPTT Coag (PPP) [Time] Activated partial thromboplastin time (aPTT) in platelet poor plasma by coagulation a 25.1-36.5 [facility] Comment on above: A hematocrit value g reater than 55% may lead to inaccurate results in coagulation testing. Patients having hematocrit values >55% require a special collection tube for coagulation studies. Please contact the laboratory at [phone] for redraw instructions. B-Type Natriuretic Peptideon 07-16-2024 Natriuretic peptide B (Bld) [Mass/Vol] 2052.0 pg/mL High 5-100 [facility] Comment on above: Result Comment: PERF ORMED BY: [facility] [address] [place] [id number] PATHOLOGIST CREDIT BALANCE SPECIALIST ANDRE PERALTA M.D. Performed By: #### P T, BMP, BNP, HS TROP, CK, CBC ####[place] [address] [place] [address] [facility] Basic Metabolic Panelon Anion gap [Moles/Vol] 10.2 mmol/L Normal 6.0-15.0 [facility] Comment on above: Performed By: #### P T, BMP, BNP, HS TROP, CK, CBC ####[id number] [place] [id number] [facility] Calcium [Mass/Vol] 8.8 mg/dL Normal 8.6-10.3 [facility] Comment on above: Performed By: #### P T, BMP, BNP, HS TROP, CK, CBC ####[address] Chloride [Moles/Vol] 99 mmol/L Normal 98-107 [facility] Comment on above: Performed By: #### P T, BMP, BNP, HS TROP, CK, CBC ####[address] CO2 [Moles/Vol] 28.0 mmol/L Normal 21.0-31.0 [facility] Comment on above: Performed By: #### P T, BMP, BNP, HS TROP, CK, CBC ####[address] Creatinine [Mass/Vol] 0.82 mg/dL Normal 0.70-1.30 [facility] Comment on above: Performed By: #### P T, BMP, BNP, HS TROP, CK, CBC ####[address] Creatinine Clr Calc Pharmacy 60.91 Normal [facility] Comment on above: Result Comment: PERF ORMED BY: [facility] [address] [place] [address] PATHOLOGIST CREDIT BALANCE SPECIALIST ANDRE PERALTA M.D. Performed By: #### P T, BMP, BNP, HS TROP, CK, CBC ####[address] GFR/1.73 sq M.predicted MDRD (S/P/Bld) [Vol rate/Area] mL/min/{1.73_m2} Normal [facility] Comment on above: Performed By: #### P T, BMP, BNP, HS TROP, CK, CBC ####[address] Glucose [Mass/Vol] 191 mg/dL High 70-100 [facility] Comment on above: Result Comment: [place] om Glucose Reference Range is dependent on time and content of last meal. Glucose of more than 200 mg/dL in a nonstressed, ambulatory subject supports the diagnosis of Diabetes Mellitus. ADA recommended reference range Performed By: #### P T, BMP, BNP, HS TROP, CK, CBC ####[facility] [place] [id number] [facility] Potassium [Moles/Vol] 4.2 mmol/L Normal 3.5-5.1 [facility] Comment on above: Performed By: #### P T, BMP, BNP, HS TROP, CK, CBC ####[facility] [place] [id number] [facility] Sodium [Moles/Vol] 133 mmol/L Low 136-145 [facility] Comment on above: Performed By: #### P T, BMP, BNP, HS TROP, CK, CBC ####[facility] Urea nitrogen [Mass/Vol] 18 mg/dL Normal 7-25 [facility] Comment on above: Performed By: #### P T, BMP, BNP, HS TROP, CK, CBC ####[facility] Basophils Auto (Bld) [#/Vol] Ordered By: PROVIDER TEMP on 07-16-2024 Basophils (Bld) [#/Vol] Automated basophil count 0.0-0.2 [facility] Basophils/100 WBC Auto (Bld) Ordered By: PROVIDER TEMP on 07-16-2024 Basophils/100 WBC (Bld) Automated basophil % . [facility] CT angio chest PE protocolon 07-16-2024 CT angio chest PE protocol [facility] [address] [place] [address] CT Scan Report Signed Patient: Manolo Vickers MR#: [id number] 353 : 1935 Acct:[id number] Age/Sex: 89 / M ADM Date: 07/16/24 Loc: ER Room: Type: [facility] ER Attending Dr: Copies to: Bertin [...] Fidencio Valentin M.D.07/16/2024 4:48 PM Dictation Location: [place] [address] Transcribed By: ERIBERTO 07/16/24 9505 Dictated By: Fidencio Valentin II, MD 07/16/24 1636 Signed By: 07/16/24 1648 Normal [facility] Calcium [Mass/volume] in Ser um or PlasmaOrdered By: PROVIDER TEMP on 07-16-2024 Calcium [Mass/Vol] Calcium [Mass/volume ] in Serum or Plasma 8.6-10.3 [facility] Carbon dioxide, total [Moles /volume] in Serum or PlasmaOrdered By: PROVIDER TEMP on 07-16-2024 CO2 [Moles/Vol] Carbon dioxide, tota l [Moles/volume] in Serum or Plasma 21.0-31.0 [facility] Chloride [Moles/volume] in S jihan or PlasmaOrdered By: PROVIDER TEMP on 07-16-2024 Chloride [Moles/Vol] Chloride [Moles/vol ume] in Serum or Plasma 98-107 [facility] Complete Blood Count Auto Di ffon 07-16-2024 Basophils (Bld) [#/Vol] 0.1 10*3/uL Normal 0.0-0.2 [facility] Comment on above: Result Comment: PERF ORMED BY: [facility] [address] [facility] [address] PATHOLOGIST CREDIT BALANCE SPECIALIST ANDRE PERALTA M.D. Performed By: #### P T, BMP, BNP, HS TROP, CK, CBC ####[address] Basophils/100 WBC (Bld) 0.8 % Normal . [facility] Comment on above: Performed By: #### P T, BMP, BNP, HS TROP, CK, CBC ####[address] Eosinophils (Bld) [#/Vol] 0.2 10*3/uL Normal 0.0-0.45 [facility] Comment on above: Performed By: #### P T, BMP, BNP, HS TROP, CK, CBC ####[address] Eosinophils/100 WBC (Bld) 2.7 % Normal . [facility] Comment on above: Performed By: #### P T, BMP, BNP, HS TROP, CK, CBC ####[address] [place] [address] [place] Erythrocyte distribution width (RBC) [Ratio] 19.9 % High 12.0-14.8 [facility] Comment on above: Performed By: #### P T, BMP, BNP, HS TROP, CK, CBC ####[address] Hematocrit (Bld) [Volume fraction] 35.8 % Low 38.8-50.0 [facility] Comment on above: Performed By: #### P T, BMP, BNP, HS TROP, CK, CBC ####[address] Hemoglobin (Bld) [Mass/Vol] 11.7 g/dL Low 13.0-17.0 [facility] Comment on above: Performed By: #### P T, BMP, BNP, HS TROP, CK, CBC ####[address] Lymphocytes (Bld) [#/Vol] 1.4 10*3/uL Normal 1.00-4.8 [facility] Comment on above: Performed By: #### P T, BMP, BNP, HS TROP, CK, CBC ####[address] Lymphocytes/100 WBC (Bld) 18.9 % Normal . [facility] Comment on above: Performed By: #### P T, BMP, BNP, HS TROP, CK, CBC ####[address] MCH (RBC) [Entitic mass] 25.9 pg Low 27.5-35.2 [facility] Comment on above: Performed By: #### P T, BMP, BNP, HS TROP, CK, CBC ####[address] MCV (RBC) [Entitic vol] 79.7 fL Low 83.5-101 [facility] Comment on above: Performed By: #### P T, BMP, BNP, HS TROP, CK, CBC ####[address] Mean Corpuscular HGB Conc 32.5 g/dL Normal 32.5-35.6 [facility] Comment on above: Performed By: #### P T, BMP, BNP, HS TROP, CK, CBC ####[address] Monocytes (Bld) [#/Vol] 0.9 10*3/uL High 0.0-0.8 [facility] Comment on above: Performed By: #### P T, BMP, BNP, HS TROP, CK, CBC ####[address] Monocytes/100 WBC (Bld) 17.82 % Normal 0.00-20.00 [facility] Comment on above: Result Comment: For adults in ED, MDW > 20.0 may be associated with a higher risk of sepsis during the first 12 hrs of hospital admission Performed By: #### P T, BMP, BNP, HS TROP, CK, CBC ####[address] Monocytes/100 WBC (Bld) 12.8 % Normal . [facility] Comment on above: Performed By: #### P T, BMP, BNP, HS TROP, CK, CBC ####[address] Neutrophils (Bld) [#/Vol] 4.7 10*3/uL Normal 1.8-7.7 [facility] Comment on above: Performed By: #### P T, BMP, BNP, HS TROP, CK, CBC ####[address] Neutrophils/100 WBC (Bld) 64.8 % Normal . [facility] Comment on above: Performed By: #### P T, BMP, BNP, HS TROP, CK, CBC ####[address] NRBC% 0.2 /100{WBC} Normal 0-0.5 [facility] Comment on above: Performed By: #### P T, BMP, BNP, HS TROP, CK, CBC ####[address] Platelet mean volume (Bld) [Entitic vol] 10.9 fL High 6.6-10.1 [facility] Comment on above: Performed By: #### P T, BMP, BNP, HS TROP, CK, CBC ####[address] Platelets (Bld) [#/Vol] 210 10*3/uL Normal 150-450 [facility] Comment on above: Performed By: #### P T, BMP, BNP, HS TROP, CK, CBC ####[address] RBC (Bld) [#/Vol] 4.50 10*6/uL Normal 3.90-5.60 [facility] Comment on above: Performed By: #### P T, BMP, BNP, HS TROP, CK, CBC ####[address] WBC (Bld) [#/Vol] 7.2 10*3/uL Normal 4.1-10.5 [facility] Comment on above: Performed By: #### P T, BMP, BNP, HS TROP, CK, CBC ####[place] [id number] [facility] Creatine Kinaseon 07-16-2024 CK [Catalytic activity/Vol] 136 U/L Normal 30-223 [facility] Comment on above: Performed By: #### P T, BMP, BNP, HS TROP, CK, CBC ####[address] Creatine kinase [Enzymatic a ctivity/volume] in Serum or PlasmaOrdered By: PROVIDER TEMP on 07-16-2024 CK [Catalytic activity/Vol] Creatine kinase [Enzymatic activity/volume] in Serum or Plasma 30-223 [facility] Creatinine [Mass/volume] in Serum or PlasmaOrdered By: PROVIDER TEMP on 07-16-2024 Creatinine [Mass/Vol] Creatinine [Mass/v olume] in Serum or Plasma 0.70-1.30 [facility] ECG 12 lead ECGon 07-16-2024 ECG 12 lead ECG [place] [id number] Electrocardiograph Report Signed Patient: Manolo Vickers MR#: [id number] 353 : 1935 Acct:[id number] Age/Sex: 89 / M ADM Date: 07/16/24 Loc: Room: [address] [place] [address] Type: ADM INOo Attending Dr: Indra Guillory [...] Atrial-paced rhythm Confirmed by Bertin Yepez DO ([id number]) on 07/16/2024 8:00:21 PM Referred By: Electronically Signed By: Betrin Yepez DO Transcribed By: MUS Signed By Bertin Yepez DO 1999 Normal [facility] ECG 12 lead ECG [place] [id number] Electrocardiograph Report Signed Patient: Manolo Vickers MR#: [id number] 353 : 1935 Acct:[id number] Age/Sex: 89 / M ADM Date: 07/16/24 Loc: Room: [address] [place] [address] Type: ADM INOo Attending Dr: Indra Guillory [...] Atrial-paced rhythm Confirmed by Bertin Yepez DO ([id number]) on 07/16/2024 8:01:11 PM Referred By: Electronically Signed By: Bertin Yepez DO Transcribed By: MUS Signed By Bertin Yepez DO 2000 Normal [facility] Eosinophils Auto (Bld) [#/Vo l]Ordered By: PROVIDER TEMP on 07-16-2024 Eosinophils (Bld) [#/Vol] Automated eosinophil count 0.0-0.45 [facility] Eosinophils/100 WBC Auto (Bl d)Ordered By: PROVIDER TEMP on 07-16-2024 Eosinophils/100 WBC (Bld) Automated eosinophil % . [facility] Erythrocyte distribution wid th Auto (RBC) [Ratio]Ordered By: PROVIDER TEMP on 07-16-2024 Erythrocyte distribution width (RBC) [Ratio] Erythrocyte distribution width [Ratio] by Automated count High 12.0-14.8 [facility] Glucose Glucometer (BldC) [M ass/Vol]Ordered By: Indra Guillory on 07-16-2024 Glucose [Mass/Vol] Capillary blood gluc ose measurement by glucometer (mass/volume) [facility] Comment on above: Random Glucose Refer ence Range is dependent on time and content of last meal. Glucose of more than 200 mg/dL in a nonstressed, ambulatory subject supports the diagnosis of Diabetes Mellitus. Glucose Poct Glucometerson 0 07-16-2024 Glucose [Mass/Vol] 327 mg/dL Normal [facility] Comment on above: Result Comment: [place] om Glucose Reference Range is dependent on time and content of last meal. Glucose of more than 200 mg/dL in a nonstressed, ambulatory subject supports the diagnosis of Diabetes Mellitus. PERFORMED BY: [facility] [address] [place] [address] PATHOLOGIST CREDIT BALANCE SPECIALIST ANDRE PERALTA M.D. Performed By: #### G LULS #### Point of Care testing , Glucose [Mass/volume] in Ser um or PlasmaOrdered By: PROVIDER TEMP on 07-16-2024 Glucose [Mass/Vol] Glucose [Mass/volume ] in Serum or Plasma High 70-100 [facility] Comment on above: ADA recommended refe rence rangeRandom Glucose Reference Range is dependent on time and content of last meal. Glucose of more than 200 mg/dL in a nonstressed, ambulatory subject supports the diagnosis of Diabetes Mellitus. Hematocrit Auto (Bld) [Volum e fraction]Ordered By: PROVIDER TEMP on 07-16-2024 Hematocrit (Bld) [Volume fraction] Hematocrit [Volume Fraction] of Blood by Automated count Low 38.8-50.0 [facility] Hemoglobin [Mass/volume] in BloodOrdered By: PROVIDER TEMP on 07-16-2024 Hemoglobin (Bld) [Mass/Vol] Hemoglobin [Mass/volume] in Blood Low 13.0-17.0 [facility] INR in Platelet poor plasma by Coagulation assayOrdered By: PROVIDER TEMP on 07-16-2024 INR Coag (PPP) [Relative time] INR in Platelet poor plasma by Coagulation assay [facility] Comment on above: INR Therapeutic Rang e [...] erythrocytes in Blood by Automated coun 4.1-10.5 [facility] Lymphocytes Auto (Bld) [#/Vo l]Ordered By: PROVIDER TEMP on 07-16-2024 Lymphocytes (Bld) [#/Vol] Lymphocytes [#/volume] in Blood by Automated count 1.00-4.8 [facility] Lymphocytes/100 WBC Auto (Bl d)Ordered By: PROVIDER TEMP on 07-16-2024 Lymphocytes/100 WBC (Bld) Lymphocytes/100 leukocytes in Blood by Automated count . [facility] MCH Auto (RBC) [Entitic mass ]Ordered By: PROVIDER TEMP on 07-16-2024 MCH (RBC) [Entitic mass] MCH [Entitic mass] by Automated count Low 27.5-35.2 [facility] MCHC Auto (RBC) [Mass/Vol]Or dered By: PROVIDER TEMP on 07-16-2024 MCHC (RBC) [Mass/Vol] MCHC [Mass/volume] by Automated count 32.5-35.6 [facility] MCV Auto (RBC) [Entitic vol] Ordered By: PROVIDER TEMP on 07-16-2024 MCV (RBC) [Entitic vol] MCV [Entitic volume] by Automated count Low 83.5-101 [facility] Monocyte distribution width [Entitic volume] in Blood by AutomatedOrdered By: PROVIDER TEMP on 07-16-2024 Monocyte distribution width Auto (Bld) [Entitic vol] Monocyte distribution width [Entitic volume] in Blood by Automated 0.00-20.00 [facility] Comment on above: For adults in ED, MD W > 20.0 may be associated with a higher risk of sepsis during the first 12 hrs of hospital admission Monocytes Auto (Bld) [#/Vol] Ordered By: PROVIDER TEMP on 07-16-2024 Monocytes (Bld) [#/Vol] Automated blood monocyte count High 0.0-0.8 [facility] Monocytes/100 WBC Auto (Bld) Ordered By: PROVIDER TEMP on 07-16-2024 Monocytes/100 WBC (Bld) Automated monocyte % . [facility] Natriuretic peptide B [Mass/ Vol]Ordered By: PROVIDER TEMP on 07-16-2024 Natriuretic peptide B (Bld) [Mass/Vol] BNP ser/plas High 5-100 [facility] Neutrophils Auto (Bld) [#/Vo l]Ordered By: PROVIDER TEMP on 07-16-2024 Neutrophils (Bld) [#/Vol] Neutrophils [#/volume] in Blood by Automated count 1.8-7.7 [facility] Neutrophils/100 WBC Auto (Bl d)Ordered By: PROVIDER TEMP on 07-16-2024 Neutrophils/100 WBC (Bld) Automated neutrophil % . [facility] No Panel InformationOrdered By: PROVIDER TEMP on 07-16-2024 Estimated GFR (CKD-EPI) > 60.0 mL/Min [facility] Creatinine Clearance (Chem 60.91 [facility] Nucleated erythrocytes [Pres ence] in Blood by Automated countOrdered By: PROVIDER TEMP on 07-16-2024 Nucleated RBC Auto Ql (Bld) Nucleated erythrocytes [Presence] in Blood by Automated count 0-0.5 [facility] Platelet mean volume Auto (B ld) [Entitic vol]Ordered By: PROVIDER TEMP on 07-16-2024 Platelet mean volume (Bld) [Entitic vol] Platelet mean volume [Entitic volume] in Blood by Automated count High 6.6-10.1 [facility] Platelets Auto (Bld) [#/Vol] Ordered By: PROVIDER TEMP on 07-16-2024 Platelets (Bld) [#/Vol] Platelets [#/volume] in Blood by Automated count 150-450 [facility] Potassium [Moles/volume] in Serum or PlasmaOrdered By: PROVIDER TEMP on 07-16-2024 Potassium [Moles/Vol] Potassium [Moles/v olume] in Serum or Plasma 3.5-5.1 [facility] Prothrombin Time INRon 07-16 INR Coag (PPP) [Relative time] 1.2 {INR} Normal [facility] Comment on above: Result [...] heart valves: 3 - 4.5 PERFORMED BY: [facility] [address] [place] [address] PATHOLOGIST CREDIT BALANCE SPECIALIST ANDRE PERALTA M.D. Performed By: #### P T, BMP, BNP, HS TROP, CK, CBC ####[facility] [id number] [place] [address] [facility] PT Coag (PPP) [Time] 14.3 s High 9.0-12.9 [facility] Comment on above: Result Comment: A he matocrit value greater than 55% may lead to inaccurate results in coagulation testing. Patients having hematocrit values >55% require a special collection tube for coagulation studies. Please contact the laboratory at [phone] for redraw instructions. Performed By: #### P T, BMP, BNP, HS TROP, CK, CBC ####[facility] [id number] [place] [address] [facility] Prothrombin time (PT)Ordered By: PROVIDER TEMP on 07-16-2024 PT Coag (PPP) [Time] Prothrombin time (PT) High 9.0- 12.9 [facility] Comment on above: A hematocrit value g reater than 55% may lead to inaccurate results in coagulation testing. Patients having hematocrit values >55% require a special collection tube for coagulation studies. Please contact the laboratory at [phone] for redraw instructions. RBC Auto (Bld) [#/Vol]Ordere d By: PROVIDER TEMP on 07-16-2024 RBC (Bld) [#/Vol] Erythrocytes [#/volu me] in Blood by Automated count 3.90-5.60 [facility] Serum or plasma anion gap de terminationOrdered By: PROVIDER TEMP on 07-16-2024 Anion gap [Moles/Vol] Serum or plasma an ion gap determination 6.0-15.0 [facility] Sodium [Moles/volume] in Ser um or PlasmaOrdered By: PROVIDER TEMP on 07-16-2024 Sodium [Moles/Vol] Sodium [Moles/volume ] in Serum or Plasma Low 136-145 [facility] Troponin I High Sensitivityo n 07-16-2024 Troponin I High Sensitivity 29.4 pg/mL High 0.0-20.0 [facility] Comment on above: Result Comment: PERF ORMED BY: [facility] [address] [place] [address] PATHOLOGIST CREDIT BALANCE SPECIALIST ANDRE PERALTA M.D. Performed By: #### G LULS #### Point of Care testing , Troponin I High Sensitivity 32.1 pg/mL High 0.0-20.0 [facility] Comment on above: Result Comment: PERF ORMED BY: [facility] [place] [place] [id number] PATHOLOGIST CREDIT BALANCE SPECIALIST ANDRE PERALTA M.D. Performed By: #### P T, BMP, BNP, HS TROP, CK, CBC ####[facility] [id number] [place] [id number] [facility] Troponin I.cardiac [Mass/vol ume] in Serum or Plasma by Detection limit <= 0.01 ng/Ordered By: Bertin Yepez on 07-16-2024 Troponin I.cardiac DL <= 0.01 ng/mL [Mass/Vol] Troponin I.cardiac [Mass/volume] in Serum or Plasma by Detection limit <= 0.01 ng/ High 0.0-20.0 [facility] Urea nitrogen [Mass/volume] in Serum or PlasmaOrdered By: PROVIDER JAYLA on 07-16-2024 Urea nitrogen [Mass/Vol] Urea nitrogen [Mass/volume] in Serum or Plasma 7-25 [facility] WBC Auto (Bld) [#/Vol]Ordere d By: PROVIDER JAYLA on 07-16-2024 WBC (Bld) [#/Vol] Leukocytes [#/volume ] in Blood by Automated count 4.1-10.5 [facility] X-ray reportOrdered By: Fidencio Valentin on 07-16-2024 Study report [facility] [address] [place] [id number] XRay Report Signed Patient: Manolo Vickers MR#: [id number] : 1935 Acct:[id number] Age/Sex: 89 / M ADM Date: 5 [...] 1:03 PM Dictation Location: RADIO-PC-17 Transcribed By: ERIBERTO 07/16/24 1303 Dictated By: Fidencio Valentin II, MD 07/16/24 1302 Signed By: 07/16/24 1303 [facility] Work Phone: XR chest 2V*on 07-16-2024 XR chest 2V* [facility] Main [place] [address] [place] [address] XRay Report Signed Patient: Manolo Vickers MR#: [id number] : 1935 Acct:[id number] Age/Sex: 89 / M ADM Date: 07/16/24 [...] 1:03 PM Dictation Location: RADIO-PC-17 Transcribed By: ERIBERTO 07/16/24 1303 Dictated By: Fidencio Valentin II, MD 07/16/24 1302 Signed By: 07/16/24 1303 Normal [facility] Issa 07-13-2024 CNPN Telephone (DEMT) ----- RANCHOGIOVANIMANOLO ([id number]) 1935 M Date Time Provider Department 07/13/24 GAYE MATASarah During your visit today, we recorded the following information about you: Gaye Mata RN 07/13/2024 4:14 PM Signed In error Allergies As of Date: 07/13/2024 (No Known Allergies) Date Reviewed: 07/06/2024 Reviewed by: Ayana Zavala APRN.INTER COM INSTALLER - Fully Assessed Prescriptions as of 07/13/2024 [...] 5,) crtg Change every 72 hours. - dnchtv-xwvmepmu-asrjlap (CREON) 24,000-76,000 -120,000 unit cpDR Take 2 [...] Encounter Status:Closed by [facility]AYE [facility]ATA [facility] MANOLO VICKERS ([id number]) 1935 M Date Time Provider Department 07/13/24 GAYE MATA During your visit today, we recorded the following information about you: Gaye Mata, KARIN 07/13/2024 4:11 PM Signed Called and spoke with patient and to schedule Omnipod DASH to Omnipod 5 pump upgrade. Patient states he has the new pods and is wearing the Dexcom G6 CGM. Patient was scheduled for carb counting/insulin pump training for 07/25/24 at 1-3 pm at [facility]. Location. Patient's Mychart status is PENDING, invite resent via text and to create account. Email sent to [email or web address] with clinic address, time, date, and what [...] Date Reviewed: 07/06/2024 Reviewed by: Ayana Zavala APRN.INTER COM INSTALLER - Fully Assessed Reason for Visit: Omnipod [...] 5,) crtg Change every 72 hours. - ejjcln-jpfwdcdp-moxvmru (CREON) 24,000-76,000 -120,000 unit cpDR Take 2 [...] Encounter Status:Closed by GAYE MATA on 07/13/24 [facility] CNOVon 07-06-2024 CNOV Office Visit (ENDOLN ) ----- MANOLO VICKERS ([id number]) 1935 M Date Time Provider Department 07/06/24 11:00 AM AYANA ZAVALA ENDOLN During your visit today, [...] US mail. PCP is DO Marie Rodriguez (Johny) [address] [facility] [address] [place] [id number] History of Present Illness Manolo Vickers is a 89 year old male presents today for evaluation of DM Type 1. Here with and son. 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 Per patient, this was done due to [...] (PROBIOTIC-10 ORAL) Take by mouth once daily. hivnks-wbvdtkbq-dmxsvgp (CREON) 24,000-76,000 -120,000 unit cpDR Take 2 capsules by mouth three times daily with meals. and 1 with snacks (8/day) Digestive Enzyme Mixtures lutein-zeaxanthin 25-5 mg cap Take by mouth once daily. Alternative Therapy - Antioxidant Omeprazole Magnesium 20 mg tablet Take 20 mg by mouth. Gastric Acid Secretion Reactor Service Operator - Proton Pump Inhibitors (PPIs) PARoxetine (PAXIL) 40 mg tablet Take 40 mg by mouth every morning. Antidepressant - Selective Serotonin Reuptake Inhibitors (SSRIs) tamsulosin (FLOMAX) 0.4 mg Take 0.4 mg by mouth. Prostatic Hypertrophy Agent - tzkon-2-Kxmwdewkwett Antagonists Physical Activity: No formal program Diet: CHO Controlled Diet SMBG Frequency of Monitoring: Four times a Day Summary of Personal CGM Findings: Dates worn: 06/22/24-07/05/24 CGM Type: Dexcom 1- CGM recording is adequate for interpretation. Worn 93% of (more content not included)... Normal [facility] 07-06-2024 CNPN Telephone (ENDOLN) ----- MANOLO VICKERS ([id number]) 1935 M Date Time Provider Department 07/06/24 AYANA ZAVALA ENDOLN During your visit today, we recorded the following information about you: Ayana Zavala APRN.[facility] 07/06/2024 4:09 PM Signed Please update patient [...] training. I reached out to our lead custodian and am waiting to hear back, but hopefully can get him set up for training in the next two weeks. Sheryl Ny MA 07/07/2024 4:31 PM Signed Called patient. No answer. [facility] to call [phone] to retrieve below message from Ayana Mckinney APRN.KALANI 07/13/2024 8:33 AM Signed Please call back patient to see how he is doing since we made adjustments to his regimen. I did reach out to the Omnipod labor trainer at [facility] and she said she would be reaching out. I want to make sure this gets scheduled and that she was able to reach him. Buffy Arana MA 07/13/2024 4:06 PM Signed Called and spoke with patient He is doing well He stated that he just got scheduled with the labor trainer today will call the office if he needs anything Ayana Zavala APRN.KALANI 07/13/2024 4:14 PM Signed Noted, thank you! Allergies As of Date: 07/06/2024 (No Known Allergies) Date Reviewed: 07/06/2024 Reviewed by: Ayana Zavala APRN.INTER COM INSTALLER - Fully Assessed Prescriptions as of 07/13/2024 [...] 5,) crtg Change every 72 hours. - ptmfwf-dxjdsrbl-qfewpjm (CREON) 24,000-76,000 -120,000 unit cpDR Take 2 [...] Status:Closed by AYANA ZAVALA on 07/06/24 Normal [facility] GLOOKO ON DEMANDon Ordered by an unspec ified provider. [facility] GLUCOSE, BLOOD (POC)on 07-06 Glucose [Mass/Vol] 76 mg/dL 74 - 99 mg/dL [facility] Comment on above: Location:[facility], [address] [place] [address] The Accu-Chek Inform II glucose meter has [...] blood gas instrument) in the above situations. [facility] HEMOGLOBIN A1C (POC)on 07-06 HbA1c (Bld) [Mass fraction] 10.1 % Abnormal 4.3 - 5.6 % [facility] Comment on above: Location:[facility], [address] [place] [address] Point of care (POC) Hemoglobin A1c (HGBA1C) [...] specific diabetes management situations: The POC device fire apparatus sprinkler inspector provides a normal range of 4.2% to 6.5% for the HGBA1C POC test. However, the [place] [employer] guidelines indicate that patients with [...] Interpretation and review of laboratory results Abnormal [facility] Glucose Glucometer (dC) [M ass/Vol]Ordered By: Sushant Cordon on 06-21-2024 Glucose [Mass/Vol] Capillary blood gluc ose measurement by glucometer (mass/volume) [facility] Comment on above: Random Glucose Refer ence Range is dependent on time and content of last meal. Glucose of more than 200 mg/dL in a nonstressed, ambulatory subject supports the diagnosis of Diabetes Mellitus. Glucose Poct Glucometerson 1 08-22-2023 Commemt1 Normal [facility] Comment on above: Result Comment: Glu2 : Will Repeat Test Performed By: #### G LULS #### Point of Care testing , Commemt2 WILL NOTIFY DR/KARIN Normal [facility] Comment on above: Performed By: #### G LULS #### Point of Care testing , Commemt3 Cleaned Meter Normal [facility] Comment on above: Result Comment: PERF ORMED BY: [facility] [address] [place] [address] PATHOLOGIST CREDIT BALANCE SPECIALIST ANDRE PERALTA M.D. Performed By: #### G LULS #### Point of Care testing , Glucose [Mass/Vol] 572 mg/dL Off scale high [facility] Comment on above: Result Comment: [place] om Glucose Reference Range is dependent on time and content of last meal. Glucose of more than 200 mg/dL in a nonstressed, ambulatory subject supports the diagnosis of Diabetes Mellitus. Performed By: #### G LULS #### Point of Care testing , Commemt1 Normal [facility] Comment on above: Result Comment: Glu2 : Will Repeat Test Performed By: #### G LULS #### Point of Care testing , Commemt2 WILL NOTIFY DR/RN Normal [facility] Comment on above: Performed By: #### G LULS #### Point of Care testing , Commemt3 Cleaned Meter Normal [facility] Comment on above: Result Comment: PERF ORMED BY: [address] [place] [address] PATHOLOGIST CREDIT BALANCE SPECIALIST ANDRE PERALTA M.D. Performed By: #### G LULS #### Point of Care testing , Glucose [Mass/Vol] 552 mg/dL Off scale [facility] Comment on above: Result Comment: [place] om Glucose Reference Range is dependent on time and content of last meal. Glucose of more than 200 mg/dL in a nonstressed, ambulatory subject supports the diagnosis of Diabetes Mellitus. Performed By: #### G LULS #### Point of Care testing , Glucose [Mass/Vol] 375 mg/dL Normal [facility] Comment on above: Result Comment: [place] om Glucose Reference Range is dependent on time and content of last meal. Glucose of more than 200 mg/dL in a nonstressed, ambulatory subject supports the diagnosis of Diabetes Mellitus. PERFORMED BY: [address] [place] [id number] PATHOLOGIST CREDIT BALANCE SPECIALIST ANDRE PERALTA M.D. Performed By: #### G LULS #### Point of Care testing , Commemt1 Normal [facility] Comment on above: Result Comment: Glu2 : Will Repeat Test PERFORMED BY: [address] [place] [address] PATHOLOGIST CREDIT BALANCE SPECIALIST ANDRE PERALTA M.D. Performed By: #### G LULS #### Point of Care testing , Glucose [Mass/Vol] 437 mg/dL Off scale high Th [facility] Comment on above: Result Comment: [place] om Glucose Reference Range is dependent on time and content of last meal. Glucose of more than 200 mg/dL in a nonstressed, ambulatory subject supports the diagnosis of Diabetes Mellitus. Performed By: #### G LULS #### Point of Care testing , Glucose [Mass/Vol] 210 mg/dL Normal [facility] Comment on above: Result Comment: [place] om Glucose Reference Range is dependent on time and content of last meal. Glucose of more than 200 mg/dL in a nonstressed, ambulatory subject supports the diagnosis of Diabetes Mellitus. PERFORMED BY: [address] [place] [address] PATHOLOGIST CREDIT BALANCE SPECIALIST ANDRE PERALTA M.D. Performed By: #### G LULS #### Point of Care testing , Glucose [Mass/Vol] 332 mg/dL Normal [facility] Comment on above: Result Comment: [place] om Glucose Reference Range is dependent on time and content of last meal. Glucose of more than 200 mg/dL in a nonstressed, ambulatory subject supports the diagnosis of Diabetes Mellitus. PERFORMED BY: [address] [place] [address] PATHOLOGIST CREDIT BALANCE SPECIALIST ANDRE PERALTA M.D. Performed By: #### G LULS #### Point of Care testing , No Panel InformationOrdered By: Sushant Cordon on 06-21-2024 Bedside Glucose #[address]/karin [facility] Bedside Glucose #3 Comment Cleaned meter [facility] Bedside Glucose Comment See comment [facility] Comment on above: Glu2: Will Repeat Te [...] RESISTANT TO ALL B-LACTAM DRUGS. PERFORMED BY: [address] [place] [address] PATHOLOGIST CREDIT BALANCE SPECIALIST ANDRE PERALTA M.D. Normal [facility] Comment on above: Performed By: #### G LUMARYA #### Point of Care testing , Anaerobic cultureOrdered By: Stephanie Sheridan on 06-20-2024 Bacteria identified Anaer cx Nom (Unsp spec) Anaerobic culture [facility] Bacteria identified Aer cx N om (Unsp spec)Ordered By: Stephanie Sheridan on 06-20-2024 Aerobic Culture Abnormal [facility] Group B Strep (Streptococcus agalactiae) Group B Strep (Streptococcus agalactiae) Abnormal [facility] Glucose Poct Glucometerson 1 08-21-2023 Glucose [Mass/Vol] 134 mg/dL Normal [facility] Comment on above: Result Comment: [place] om Glucose Reference Range is dependent on time and content of last meal. Glucose of more than 200 mg/dL in a nonstressed, ambulatory subject supports the diagnosis of Diabetes Mellitus. PERFORMED BY: [address] [place] [id number] PATHOLOGIST CREDIT BALANCE SPECIALIST ANDRE PERALTA M.D. Performed By: #### G LULS #### Point of Care testing , Glucose [Mass/Vol] 65 mg/dL Normal [facility] Comment on above: Result Comment: [place] om Glucose Reference Range is dependent on time and content of last meal. Glucose of more than 200 mg/dL in a nonstressed, ambulatory subject supports the diagnosis of Diabetes Mellitus. PERFORMED BY: [place] [address] PATHOLOGIST CREDIT BALANCE SPECIALIST ANDRE PERALTA M.D. Performed By: #### G LULS #### Point of Care testing , Commemt1 Glu2: Cleaned Meter Normal [facility] Comment on above: Result Comment: PERF ORMED BY: [address] [place] [id number] PATHOLOGIST CREDIT BALANCE SPECIALIST ANDRE PERALTA M.D. Performed By: #### G LULS ####Point of Care testing, Glucose [Mass/Vol] 140 mg/dL Normal [facility] Comment on above: Result Comment: [place] om Glucose Reference Range is dependent on time and content of last meal. Glucose of more than 200 mg/dL in a nonstressed, ambulatory subject supports the diagnosis of Diabetes Mellitus. Performed By: #### G LULS ####Point of Care testing, Commemt1 Glu2: Cleaned Meter Normal [facility] Comment on above: Result Comment: PERF ORMED BY: [address] [place] [id number] PATHOLOGIST CREDIT BALANCE SPECIALIST ANDRE PERALTA M.D. Performed By: #### G LULS ####Point of Care testing, Glucose [Mass/Vol] 200 mg/dL Normal [facility] Comment on above: Result Comment: [place] om Glucose Reference Range is dependent on time and content of last meal. Glucose of more than 200 mg/dL in a nonstressed, ambulatory subject supports the diagnosis of Diabetes Mellitus. Performed By: #### G LULS ####Point of Care testing, Commemt1 Normal [facility] Comment on above: Result Comment: Glu2 : Will Repeat Test PERFORMED BY: [facility] [place] [address] PATHOLOGIST CREDIT BALANCE SPECIALIST ANDRE PERALTA M.D. Performed By: #### G LULS #### Point of Care testing , Glucose [Mass/Vol] 425 mg/dL Off scale high [facility] Comment on above: Result Comment: [facility] [...] stain Nom (Unsp spec) Gram stain microscopy [facility] A1C with Estimated Average G aguedan 06-19-2024 Glucose [Mass/Vol] 255 mg/dL Normal [facility] Comment on above: Order Comment: ADD O N PER IFEANYI - PHLEB Result Comment: PERF ORMED BY: [place] [address] [place] [address] PATHOLOGIST CREDIT BALANCE SPECIALIST ANDRE PERALTA M.D. Performed By: #### G LULS #### Point of Care testing , HbA1c (Bld) [Mass fraction] 10.5 % High 4.3-5.6 [facility] Comment on above: Order [...] Acanthocytes [Presence] in Blood by Light microscopy [facility] Anisocytosis LM Ql (Bld)Orde red By: Sushant Cordon on 06-19-2024 Anisocytosis Ql (Bld) Anisocytosis [Pres ence] in Blood by Light microscopy [facility] Basic Metabolic Panelon 12-0 Anion gap [Moles/Vol] 10.4 mmol/L Normal 6.0-15.0 [facility] Comment on above: Performed By: #### G LULS #### Point of Care testing , Calcium [Mass/Vol] 9.0 mg/dL Normal 8.6-10.3 [facility] Comment on above: Result Comment: PERF ORMED BY: [facility] [address] [place] [address] PATHOLOGIST CREDIT BALANCE SPECIALIST ANDRE PERALTA M.D. Performed By: #### G LULS #### Point of Care testing , Chloride [Moles/Vol] 103 mmol/L Normal 98-107 [facility] Comment on above: Performed By: #### G LULS #### Point of Care testing , CO2 [Moles/Vol] 28.0 mmol/L Normal 21.0-31.0 [facility] Comment on above: Performed By: #### G LULS #### Point of Care testing , Creatinine [Mass/Vol] 0.96 mg/dL Normal 0.70-1.30 [facility] Comment on above: Performed By: #### G LULS #### Point of Care testing , GFR/1.73 sq M.predicted MDRD (S/P/Bld) [Vol rate/Area] mL/min/{1.73_m2} Normal [facility] Comment on above: Performed By: #### G LULS #### Point of Care testing , Glucose [Mass/Vol] 90 mg/dL Normal 70-100 [facility] Comment on above: Result Comment: [place] Glucose Reference Range is dependent on time and content of last meal. Glucose of more than 200 mg/dL in a nonstressed, ambulatory subject supports the diagnosis of Diabetes Mellitus. ADA recommended reference range Performed By: #### G LULS #### Point of Care testing , Potassium [Moles/Vol] 4.4 mmol/L Normal 3.5-5.1 [facility] Comment on above: Performed By: #### G LULS #### Point of Care testing , Sodium [Moles/Vol] 137 mmol/L Normal 136-145 [facility] Comment on above: Performed By: #### G LULS #### Point of Care testing , Urea nitrogen [Mass/Vol] 22 mg/dL Normal 7-25 [facility] Comment on above: Performed By: #### G LULS #### Point of Care testing , Basophils Auto (Bld) [#/Vol] Ordered By: Sushant Cordon on 06-19-2024 Basophils (Bld) [#/Vol] Automated basophil count 0.0-0.2 [facility] Basophils/100 WBC Auto (Bld) Ordered By: Sushant Cordon on 06-19-2024 Basophils/100 WBC (Bld) Automated basophil % . [facility] Blood estimated average gluc ose determination by estimation from glycated hemoglobinOrdered By: Sushant Cordon on 06-19-2024 Average glucose Estimated from glycated hemoglobin (Bld) [Mass/Vol] Glucose mean value [Mass/volume] in Blood Estimated from glycated hemoglobin [facility] [place] cells [Presence] in Blo od by Light microscopyOrdered By: Sushant Cordon on 06-19-2024 Geo cells LM Ql (Bld) [place] cells [Prese nce] in Blood by Light microscopy [facility] Calcium [Mass/volume] in Ser um or PlasmaOrdered By: Sushant Cordon on 06-19-2024 Calcium [Mass/Vol] Calcium [Mass/volume ] in Serum or Plasma 8.6-10.3 [facility] Carbon dioxide, total [Moles /volume] in Serum or PlasmaOrdered By: Sushant Cordon on 06-19-2024 CO2 [Moles/Vol] Carbon dioxide, tota l [Moles/volume] in Serum or Plasma 21.0-31.0 [facility] Chloride [Moles/volume] in S jihan or PlasmaOrdered By: Sushant oCrdon on 06-19-2024 Chloride [Moles/Vol] Chloride [Moles/vol ume] in Serum or Plasma 98-107 [facility] Creatinine [Mass/volume] in Serum or PlasmaOrdered By: Sushant Cordon on 06-19-2024 Creatinine [Mass/Vol] Creatinine [Mass/v olume] in Serum or Plasma 0.70-1.30 [facility] Eosinophils Auto (Bld) [#/Vo l]Ordered By: Sushant Cordon on 06-19-2024 Eosinophils (Bld) [#/Vol] Automated eosinophil count 0.0-0.45 [facility] Eosinophils/100 WBC Auto (Bl d)Ordered By: Sushant Cordon on 06-19-2024 Eosinophils/100 WBC (Bld) Automated eosinophil % . [facility] Erythrocyte distribution wid th Auto (RBC) [Ratio]Ordered By: Sushant Cordon on 06-19-2024 Erythrocyte distribution width (RBC) [Ratio] Erythrocyte distribution width [Ratio] by Automated count High 12.0-14.8 [facility] Erythrocyte morphology findi ng [Identifier] in BloodOrdered By: Sushant Cordon on 06-19-2024 RBC morphology finding Nom (Bld) RBC morphology [facility] Glucose Poct Glucometerson 1 08-20-2023 Glucose [Mass/Vol] 101 mg/dL Normal [facility] Comment on above: Result Comment: [facility] Glucose Reference Range is dependent on time and content of last meal. Glucose of more than 200 mg/dL in a nonstressed, ambulatory subject supports the diagnosis of Diabetes Mellitus. PERFORMED BY: [facility] [address] [place] [address] PATHOLOGIST CREDIT BALANCE SPECIALIST ANDRE PERALTA M.D. Performed By: #### G LULS #### Point of Care testing , Glucose [Mass/volume] in Ser um or PlasmaOrdered By: Sushant Cordon on 06-19-2024 Glucose [Mass/Vol] Glucose [Mass/volume ] in Serum or Plasma 70-100 [facility] Comment on above: ADA recommended refe rence rangeRandom Glucose Reference Range is dependent on time and content of last meal. Glucose of more than 200 mg/dL in a nonstressed, ambulatory subject supports the diagnosis of Diabetes Mellitus. Hematocrit Auto (Bld) [Volum e fraction]Ordered By: Sushant Cordon on 06-19-2024 Hematocrit (Bld) [Volume fraction] Hematocrit [Volume Fraction] of Blood by Automated count Low 38.8-50.0 [facility] Hemoglobin A1c/Hemoglobin.to chrissy in BloodOrdered By: Sushant Cordon on 06-19-2024 HbA1c (Bld) [Mass fraction] Hemoglobin A1c percentage High 4.3-5.6 [facility] Comment on above: Increased risk for d iabetes: 5.7 - 6.4diabetes: >6.4glycemic control for adults with diabetes: <7.0 Hemoglobin [Mass/volume] in BloodOrdered By: Sushant Cordon on 06-19-2024 Hemoglobin (Bld) [Mass/Vol] Hemoglobin [Mass/volume] in Blood Low 13.0-17.0 [facility] Hypochromia LM Ql (Bld)Order ed By: Sushant Cordon on 06-19-2024 Hypochromia Ql (Bld) Hypochromia [Presen ce] in Blood by Light microscopy [facility] INR in Platelet poor plasma by Coagulation assayOrdered By: Sushant Cordon on 06-19-2024 INR Coag (PPP) [Relative time] INR in Platelet poor plasma by Coagulation assay [facility] Comment on above: INR Therapeutic Rang e [...] erythrocytes in Blood by Automated coun 4.1-10.5 [facility] Lymphocytes Auto (Bld) [#/Vo l]Ordered By: Sushant Cordon on 06-19-2024 Lymphocytes (Bld) [#/Vol] Lymphocytes [#/volume] in Blood by Automated count 1.00-4.8 [facility] Lymphocytes/100 WBC Auto (Bl d)Ordered By: Sushant Cordon on 06-19-2024 Lymphocytes/100 WBC (Bld) Lymphocytes/100 leukocytes in Blood by Automated count . [facility] MCH Auto (RBC) [Entitic mass ]Ordered By: Sushant Cordon on 06-19-2024 MCH (RBC) [Entitic mass] MCH [Entitic mass] by Automated count Low 27.5-35.2 [facility] MCHC Auto (RBC) [Mass/Vol]Or dered By: Sushant Cordon on 06-19-2024 MCHC (RBC) [Mass/Vol] MCHC [Mass/volume] by Automated count 32.5-35.6 [facility] MCV Auto (RBC) [Entitic vol] Ordered By: Sushant Cordon on 06-19-2024 MCV (RBC) [Entitic vol] MCV [Entitic volume] by Automated count Low 83.5-101 [facility] Macrocytes LM Ql (Bld)Ordere d By: Sushant Cordon on 06-19-2024 Macrocytes Ql (Bld) Macrocytes [Presence ] in Blood by Light microscopy [facility] Microcytes LM Ql (Bld)Ordere d By: Sushant Cordon on 06-19-2024 Microcytes Ql (Bld) Microcytes [Presence ] in Blood by Light microscopy [facility] Monocytes Auto (Bld) [#/Vol] Ordered By: Sushant Cordon on 06-19-2024 Monocytes (Bld) [#/Vol] Automated blood monocyte count 0.0-0.8 [facility] Monocytes/100 WBC Auto (Bld) Ordered By: Sushant Cordon on 06-19-2024 Monocytes/100 WBC (Bld) Automated monocyte % . [facility] Neutrophils Auto (Bld) [#/Vo l]Ordered By: Sushant Cordon on 06-19-2024 Neutrophils (Bld) [#/Vol] Neutrophils [#/volume] in Blood by Automated count 1.8-7.7 [facility] Neutrophils/100 WBC Auto (Bl d)Ordered By: Sushant Cordon on 06-19-2024 Neutrophils/100 WBC (Bld) Automated neutrophil % . [facility] No Panel InformationOrdered By: Sushant Cordon on 06-19-2024 Estimated GFR (CKD-EPI) > 60.0 mL/Min [facility] Creatinine Clearance (Chem N/A [facility] Nucleated erythrocytes [Pres ence] in Blood by Automated countOrdered By: Sushant Cordon on 06-19-2024 Nucleated RBC Auto Ql (Bld) Nucleated erythrocytes [Presence] in Blood by Automated count 0-0.5 [facility] Ovalocytes [Presence] in Blo od by Light microscopyOrdered By: Sushant Cordon on 06-19-2024 Ovalocytes LM Ql (Bld) Ovalocyte detection [facility] Partial Thromboplastin Timeo n 06-19-2024 aPTT Coag (Bld) [Time] 29.4 s Normal 25.1-36.5 [facility] Comment on above: Result Comment: A he matocrit value greater than 55% may lead to inaccurate results in coagulation testing. Patients having hematocrit values >55% require a special collection tube for coagulation studies. Please contact the laboratory at [phone] for redraw instructions. PERFORMED BY: [place] [address] [place] [address] PATHOLOGIST CREDIT BALANCE SPECIALIST ANDRE PERALTA M.D. Performed By: #### G LULS #### Point of Care testing , Platelet adequacy [Presence] in Blood by Light microscopyOrdered By: Sushant Cordon on 06-19-2024 Platelets LM Ql (Bld) Platelet adequacy [Presence] in Blood by Light microscopy Normal [facility] Platelet mean volume Auto (B ld) [Entitic vol]Ordered By: Sushant Cordon on 06-19-2024 Platelet mean volume (Bld) [Entitic vol] Platelet mean volume [Entitic volume] in Blood by Automated count 6.6-10.1 [facility] Platelet morphology finding [Identifier] in BloodOrdered By: Sushant Cordon on 06-19-2024 Platelet morphology finding Nom (Bld) Platelet morphology finding [Identifier] in Blood Normal [facility] Platelets Auto (Bld) [#/Vol] Ordered By: Sushant Cordon on 06-19-2024 Platelets (Bld) [#/Vol] Platelets [#/volume] in Blood by Automated count 150-450 [facility] Poikilocytosis [Presence] in Blood by Light microscopyOrdered By: Sushant Cordon on 06-19-2024 Poikilocytosis LM Ql (Bld) Poikilocytosis [Presence] in Blood by Light microscopy [facility] Potassium [Moles/volume] in Serum or PlasmaOrdered By: Sushant Cordon on 06-19-2024 Potassium [Moles/Vol] Potassium [Moles/v olume] in Serum or Plasma 3.5-5.1 [facility] Prothrombin Time INRon 06-19 INR Coag (PPP) [Relative time] 1.1 {INR} Normal [facility] Comment on above: Result [...] (PPP) [Time] 12.9 s Normal 9.0-12.9 [facility] Comment on above: Result Comment: A he matocrit value greater than 55% may lead to inaccurate results in coagulation testing. Patients having hematocrit values >55% require a special collection tube for coagulation studies. Please contact the laboratory at [phone] for redraw instructions. Performed By: #### G LULS #### Point of Care testing , Prothrombin time (PT)Ordered By: Sushant Cordon on 06-19-2024 PT Coag (PPP) [Time] Prothrombin time (PT) 9.0- 12.9 [facility] Comment on above: A hematocrit value g reater than 55% may lead to inaccurate results in coagulation testing. Patients having hematocrit values >55% require a special collection tube for coagulation studies. Please contact the laboratory at [phone] for redraw instructions. RBC Auto (Bld) [#/Vol]Ordere d By: Sushant Cordon on 06-19-2024 RBC (Bld) [#/Vol] Erythrocytes [#/volu me] in Blood by Automated count 3.90-5.60 [facility] Scan and CBCon 06-19-2024 Acanthocytes Moderate Normal [facility] Comment on above: Performed By: #### G LULS #### Point of Care testing , Anisocytosis Ql (Bld) Moderate Normal [facility] Comment on above: Performed By: #### G LULS #### Point of Care testing , Basophils (Bld) [#/Vol] 0.1 10*3/uL Normal 0.0-0.2 [facility] Comment on above: Result Comment: PERF ORMED BY: [facility] [address] [place] [address] PATHOLOGIST CREDIT BALANCE SPECIALIST ANDRE PERALTA M.D. Performed By: #### G LULS #### Point of Care testing , Basophils/100 WBC (Bld) 1.8 % Normal . [facility] Comment on above: Performed By: #### G LULS #### Point of Care testing , Crenated RBC Slight Normal [facility] Comment on above: Performed By: #### G LULS #### Point of Care testing , Eosinophils (Bld) [#/Vol] 0.1 10*3/uL Normal 0.0-0.45 [facility] Comment on above: Performed By: #### G LULS #### Point of Care testing , Eosinophils/100 WBC (Bld) 1.3 % Normal . [facility] Comment on above: Performed By: #### G LULS #### Point of Care testing , Erythrocyte distribution width (RBC) [Ratio] 20.5 % High 12.0-14.8 [facility] Comment on above: Performed By: #### G LULS #### Point of Care testing , Hematocrit (Bld) [Volume fraction] 34.1 % Low 38.8-50.0 [facility] Comment on above: Performed By: #### G LULS #### Point of Care testing , Hemoglobin (Bld) [Mass/Vol] 11.3 g/dL Low 13.0-17.0 [facility] Comment on above: Performed By: #### G LULS #### Point of Care testing , Hypochromasia Moderate Normal [facility] Comment on above: Performed By: #### G LULS #### Point of Care testing , Lymphocytes (Bld) [#/Vol] 3.5 10*3/uL Normal 1.00-4.8 [facility] Comment on above: Performed By: #### G LULS #### Point of Care testing , Lymphocytes/100 WBC (Bld) 44.3 % Normal . [facility] Comment on above: Performed By: #### G LULS #### Point of Care testing , Macrocytosis Slight Normal [facility] Comment on above: Performed By: #### G LULS #### Point of Care testing , MCH (RBC) [Entitic mass] 25.5 pg Low 27.5-35.2 [facility] Comment on above: Performed By: #### G LULS #### Point of Care testing , MCV (RBC) [Entitic vol] 76.9 fL Low 83.5-101 [facility] Comment on above: Performed By: #### G LULS #### Point of Care testing , Mean Corpuscular HGB Conc 33.2 g/dL Normal 32.5-35.6 [facility] Comment on above: Performed By: #### G LULS #### Point of Care testing , Microcytosis Slight Normal [facility] Comment on above: Performed By: #### G LULS #### Point of Care testing , Monocytes (Bld) [#/Vol] 0.6 10*3/uL Normal 0.0-0.8 [facility] Comment on above: Performed By: #### G LULS #### Point of Care testing , Monocytes/100 WBC (Bld) 7.0 % Normal . [facility] Comment on above: Performed By: #### G LULS #### Point of Care testing , Neutrophils (Bld) [#/Vol] 3.6 10*3/uL Normal 1.8-7.7 [facility] Comment on above: Performed By: #### G LULS #### Point of Care testing , Neutrophils/100 WBC (Bld) 45.6 % Normal . [facility] Comment on above: Performed By: #### G LULS #### Point of Care testing , NRBC% 0.1 /100{WBC} Normal 0-0.5 [facility] Comment on above: Performed By: #### G LULS #### Point of Care testing , Ovalocytes Slight Normal [facility] Comment on above: Performed By: #### G LULS #### Point of Care testing , Platelet Estimate Normal Normal Normal [facility] Comment on above: Performed By: #### G LULS #### Point of Care testing , Platelet mean volume (Bld) [Entitic vol] 9.8 fL Normal 6.6-10.1 [facility] Comment on above: Performed By: #### G LULS #### Point of Care testing , Platelet Morphology Normal Normal Normal [facility] Comment on above: Result Comment: PERF ORMED BY: [place] [address] [place] [address] PATHOLOGIST CREDIT BALANCE SPECIALIST MOHAMED M EL-FAKHARANY M.D. Performed By: #### G LULS #### Point of Care testing , Platelets (Bld) [#/Vol] 243 10*3/uL Normal 150-450 [facility] Comment on above: Performed By: #### G LULS #### Point of Care testing , Poikilocytosis Moderate Normal [facility] Comment on above: Performed By: #### G LULS #### Point of Care testing , RBC (Bld) [#/Vol] 4.43 10*6/uL Normal 3.90-5.60 [facility] Comment on above: Performed By: #### G LULS #### Point of Care testing , Schistocytes Slight Normal [facility] Comment on above: Performed By: #### G LULS #### Point of Care testing , Target Cells Slight Normal [facility] Comment on above: Performed By: #### G LULS #### Point of Care testing , WBC (Bld) [#/Vol] 7.9 10*3/uL Normal 4.1-10.5 [facility] Comment on above: Performed By: #### G LULS #### Point of Care testing , Schistocytes [Presence] in B lood by Light microscopyOrdered By: Sushant Cordon on 06-19-2024 Schistocytes LM Ql (Bld) Schistocytes [Presence] in Blood by Light microscopy [facility] Serum or plasma anion gap de terminationOrdered By: Sushant Cordon on 06-19-2024 Anion gap [Moles/Vol] Serum or plasma an ion gap determination 6.0-15.0 [facility] Sodium [Moles/volume] in Ser um or PlasmaOrdered By: Sushant Cordon on 06-19-2024 Sodium [Moles/Vol] Sodium [Moles/volume ] in Serum or Plasma 136-145 [facility] Target cells [Presence] in B lood by Light microscopyOrdered By: Sushant Cordon on 06-19-2024 Target cells LM Ql (Bld) Target cells [facility] Urea nitrogen [Mass/volume] in Serum or PlasmaOrdered By: Sushant Cordon on 06-19-2024 Urea nitrogen [Mass/Vol] Urea nitrogen [Mass/volume] in Serum or Plasma 02-02 [facility] WBC Auto (Bld) [#/Vol]Ordere d By: Sushant Cordon on 06-19-2024 WBC (Bld) [#/Vol] Leukocytes [#/volume ] in Blood by Automated count 4.1-10.5 [facility] aPTT in Platelet poor plasma by Coagulation assayOrdered By: Sushant Cordon on 06-19-2024 aPTT Coag (PPP) [Time] Activated partial thromboplastin time (aPTT) in platelet poor plasma by coagulation a 25.1-36.5 [facility] Comment on above: A hematocrit value g reater than 55% may lead to inaccurate results in coagulation testing. Patients having hematocrit values >55% require a special collection tube for coagulation studies. Please contact the laboratory at [phone] for redraw instructions. Acanthocytes [Presence] in B lood by Light microscopyOrdered By: Jose Alfredo Brantley on 06-18-2024 Acanthocytes LM Ql (Bld) Acanthocytes [Presence] in Blood by Light microscopy [facility] Alanine aminotransferase [En zymatic activity/volume] in Serum or PlasmaOrdered By: Jose Alfredo Brantley on 06-18-2024 ALT [Catalytic activity/Vol] Alanine aminotransferase [Enzymatic activity/volume] in Serum or Plasma [facility] Albumin [Mass/volume] in Ser um or Plasma by Bromocresol green (BCG) dye binding methoOrdered By: Jose Alfredo Brantley on 06-18-2024 Albumin BCG dye [Mass/Vol] Albumin [Mass/volume] in Serum or Plasma by Bromocresol green (BCG) dye binding metho Low 3.5-5.7 [facility] Alkaline phosphatase [Enzyma tic activity/volume] in Serum or PlasmaOrdered By: Jose Alfredo Brantley on 06-18-2024 ALP [Catalytic activity/Vol] Alkaline phosphatase [Enzymatic activity/volume] in Serum or Plasma High 34-104 [facility] Anisocytosis LM Ql (Bld)Orde red By: Jose Alfredo Brantley on 06-18-2024 Anisocytosis Ql (Bld) Anisocytosis [Pres ence] in Blood by Light microscopy [facility] Aspartate aminotransferase [ Enzymatic activity/volume] in Serum or PlasmaOrdered By: Jose Alfredo Brantley on 06-18-2024 AST [Catalytic activity/Vol] Aspartate aminotransferase [Enzymatic activity/volume] in Serum or Plasma 13-39 [facility] Basophils Auto (Bld) [#/Vol] Ordered By: Jose Alfredo Brantley on 06-18-2024 Basophils (Bld) [#/Vol] Automated basophil count [facility] Basophils/100 WBC Auto (Bld) Ordered By: Jose Alfredo Brantley on 06-18-2024 Basophils/100 WBC (Bld) Automated basophil % [facility] Bilirubin.total [Mass/volume ] in Serum or PlasmaOrdered By: Jose Alfredo Brantley on 06-18-2024 Bilirubin [Mass/Vol] Bilirubin.total [Mass/volume] in Serum or Plasma 0.3-1.0 [facility] [place] cells [Presence] in Blo od by Light microscopyOrdered By: Jose Alfredo Brantley on 06-18-2024 [place] cells LM Ql (Bld) Geo cells [Prese nce] in Blood by Light microscopy [facility] Calcium [Mass/volume] in Ser um or PlasmaOrdered By: Jose Alfredo Brantley on 06-18-2024 Calcium [Mass/Vol] Calcium [Mass/volume ] in Serum or Plasma 8.6-10.3 [facility] Carbon dioxide, total [Moles /volume] in Serum or PlasmaOrdered By: Jose Alfredo Brantley on 06-18-2024 CO2 [Moles/Vol] Carbon dioxide, tota l [Moles/volume] in Serum or Plasma 21.0-31.0 [facility] Chloride [Moles/volume] in S jihan or PlasmaOrdered By: Jose Alfredo Brantley on 06-18-2024 Chloride [Moles/Vol] Chloride [Moles/vol ume] in Serum or Plasma 98-107 [facility] Comprehensive Metabolic Pane jairo 06-18-2024 Albumin [Mass/Vol] 3.4 g/dL Low 3.5-5.7 [facility] Comment on above: Performed By: #### D IFF CBC, CMP ####[facility] [place] [address] [facility] Albumin/Globulin [Mass ratio] 1.1 {ratio} Normal [facility] Comment on above: Performed By: #### D IFF CBC, CMP ####[facility] [place] [address] [facility] ALP [Catalytic activity/Vol] 109 U/L High 34-104 [facility] Comment on above: Performed By: #### D IFF CBC, CMP ####[address] [place] [address] [facility] ALT [Catalytic activity/Vol] 14 U/L Normal 7-52 [facility] Comment on above: Performed By: #### D IFF CBC, CMP ####[address] [place] [address] [facility] Anion gap [Moles/Vol] 11.4 mmol/L Normal 6.0-15.0 [facility] Comment on above: Performed By: #### D IFF CBC, CMP ####[address] [address] [facility] AST [Catalytic activity/Vol] 21 U/L Normal 13-39 [facility] Comment on above: Performed By: #### D IFF CBC, CMP ####[address] [address] [facility] Bilirubin [Mass/Vol] 0.4 mg/dL Normal 0.3-1.0 [facility] Comment on above: Performed By: #### D IFF CBC, CMP ####[address] [address] [facility] Calcium [Mass/Vol] 8.7 mg/dL Normal 8.6-10.3 [facility] Comment on above: Performed By: #### D IFF CBC, CMP ####[address] [place] [address] [facility] Chloride [Moles/Vol] 102 mmol/L Normal 98-107 [facility] Comment on above: Performed By: #### D IFF CBC, CMP ####[place] [address] [place] [id number] [facility] CO2 [Moles/Vol] 27.6 mmol/L Normal 21.0-31.0 [facility] Comment on above: Performed By: #### D IFF CBC, CMP ####[place] [address] [place] [id number] [facility] Creatinine [Mass/Vol] 0.96 mg/dL Normal 0.70-1.30 [facility] Comment on above: Performed By: #### D IFF CBC, CMP ####[address] Creatinine Clr Calc Pharmacy 50.22 Normal [facility] Comment on above: Result Comment: PERF ORMED BY: [facility] [address] [place] [address] PATHOLOGIST CREDIT BALANCE SPECIALIST ANDRE PERALTA M.D. Performed By: #### D IFF CBC, CMP ####[address] GFR/1.73 sq M.predicted MDRD (S/P/Bld) [Vol rate/Area] mL/min/{1.73_m2} Normal [facility] Comment on above: Performed By: #### D IFF CBC, CMP ####[place] [id number] [facility] Globulin (S) [Mass/Vol] 3.0 g/dL Normal [facility] Comment on above: Performed By: #### D IFF CBC, CMP ####[place] [id number] [facility] Glucose [Mass/Vol] 85 mg/dL Normal 70-100 [facility] Comment on above: Result Comment: [place] Glucose Reference Range is dependent on time and content of last meal. Glucose of more than 200 mg/dL in a nonstressed, ambulatory subject supports the diagnosis of Diabetes Mellitus. ADA recommended reference range Performed By: #### D IFF CBC, CMP ####[place] [id number] [facility] Potassium [Moles/Vol] 4.0 mmol/L Normal 3.5-5.1 [facility] Comment on above: Performed By: #### D IFF CBC, CMP ####[address] Protein [Mass/Vol] 6.4 g/dL Normal 6.4-8.9 [facility] Comment on above: Performed By: #### D IFF CBC, CMP ####[address] Sodium [Moles/Vol] 137 mmol/L Normal 136-145 [facility] Comment on above: Performed By: #### D IFF CBC, CMP ####[address] Urea nitrogen [Mass/Vol] 21 mg/dL Normal 7-25 [facility] Comment on above: Performed By: #### D IFF CBC, CMP ####[address] Creatinine [Mass/volume] in Serum or PlasmaOrdered By: Jose Alfredo Brantley on 06-18-2024 Creatinine [Mass/Vol] Creatinine [Mass/v olume] in Serum or Plasma 0.70-1.30 [facility] Diff and CBCon 06-18-2024 Acanthocytes Marked Normal [facility] Comment on above: Performed By: #### D IFF CBC, CMP ####[address] Anisocytosis Ql (Bld) Marked Normal [facility] Comment on above: Performed By: #### D IFF CBC, CMP ####[address] Crenated RBC Moderate Normal [facility] Comment on above: Performed By: #### D IFF CBC, CMP ####[address] Eosinophils/100 WBC (Bld) 4 % High 1-3 [facility] Comment on above: Performed By: #### D IFF CBC, CMP ####[address] Erythrocyte distribution width (RBC) [Ratio] 20.2 % High 12.0-14.8 [facility] Comment on above: Performed By: #### D IFF CBC, CMP ####[address] Hematocrit (Bld) [Volume fraction] 35.5 % Low 38.8-50.0 [facility] [facility] Comment on above: Performed By: #### D IFF CBC, CMP ####[address] Hemoglobin (Bld) [Mass/Vol] 11.8 g/dL Low 13.0-17.0 [facility] Comment on above: Performed By: #### D IFF CBC, CMP ####[address] Hypochromasia Slight Normal The [facility] Comment on above: Performed By: #### D IFF CBC, CMP ####[address] Large Platelets Slight Normal The [facility] Comment on above: Result Comment: PERF ORMED BY: [facility] [address] [place] [address] PATHOLOGIST CREDIT BALANCE SPECIALIST ANDRE PERALTA M.D. Performed By: #### D IFF CBC, CMP ####[address] Lymphocytes/100 WBC (Bld) 15 % Low 18-42 [facility] Comment on above: Performed By: #### D IFF CBC, CMP ####[address] Macrocytosis Slight Normal The [facility] Comment on above: Performed By: #### D IFF CBC, CMP ####[address] MCH (RBC) [Entitic mass] 25.6 pg Low 27.5-35.2 [facility] Comment on above: Performed By: #### D IFF CBC, CMP ####[address] [place] [address] [facility] MCV (RBC) [Entitic vol] 76.7 fL Low 83.5-101 [facility] Comment on above: Performed By: #### D IFF CBC, CMP ####[address] [address] [facility] Mean Corpuscular HGB Conc 33.3 g/dL Normal 32.5-35.6 [facility] Comment on above: Performed By: #### D IFF CBC, CMP ####[address] [place] [address] [facility] Microcytosis Slight Normal The [facility] Comment on above: Performed By: #### D IFF CBC, CMP ####[address] [address] [facility] Monocytes/100 WBC (Bld) 12 % High 2-11 [facility] Comment on above: Performed By: #### D IFF CBC, CMP ####[address] [address] [facility] Platelet Estimate Normal Normal Normal The [facility] Comment on above: Performed By: #### D IFF CBC, CMP ####[address] [address] [facility] Platelet mean volume (Bld) [Entitic vol] 10.1 fL Normal 6.6-10.1 [facility] Comment on above: Performed By: #### D IFF CBC, CMP ####[address] [address] [facility] Platelets (Bld) [#/Vol] 239 10*3/uL Normal 150-450 [facility] Comment on above: Performed By: #### D IFF CBC, CMP ####[address] [place] [address] [facility] Poikilocytosis Marked Normal The [facility] Comment on above: Performed By: #### D IFF CBC, CMP ####[address] Polychromasia Slight Normal The [facility] Comment on above: Performed By: #### D IFF CBC, CMP ####[address] RBC (Bld) [#/Vol] 4.63 10*6/uL Normal 3.90-5.60 The [facility] Comment on above: Performed By: #### D IFF CBC, CMP ####[address] Schistocytes Moderate Normal The [facility] Comment on above: Performed By: #### D IFF CBC, CMP ####[address] Segmented neutrophils/100 WBC (Bld) 69 % Normal 50-70 [facility] Comment on above: Performed By: #### D IFF CBC, CMP ####[address] Target Cells Moderate Normal [facility] Comment on above: Performed By: #### D IFF CBC, CMP ####[address] WBC (Bld) [#/Vol] 7.3 10*3/uL Normal 4.1-10.5 The [facility] Comment on above: Performed By: #### D IFF CBC, CMP ####[address] Eosinophils Auto (Bld) [#/Vo l]Ordered By: Jose Alfredo Brantley on 06-18-2024 Eosinophils (Bld) [#/Vol] Automated eosinophil count [facility] Eosinophils/100 WBC Auto (Bl d)Ordered By: Jose Alfredo Brantley on 06-18-2024 Eosinophils/100 WBC (Bld) Automated eosinophil % [facility] Eosinophils/100 WBC Manual c nt (Bld)Ordered By: Jose Alfredo Brantley on 06-18-2024 Eosinophils/100 WBC (Bld) Eosinophils/100 leukocytes in Blood by Manual count High 1-3 [facility] Erythrocyte distribution wid th Auto (RBC) [Ratio]Ordered By: Jose Alfredo Brantley on 06-18-2024 Erythrocyte distribution width (RBC) [Ratio] Erythrocyte distribution width [Ratio] by Automated count High 12.0-14.8 [facility] Erythrocyte morphology findi ng [Identifier] in BloodOrdered By: Jose Alfredo Brantley on 06-18-2024 RBC morphology finding Nom (Bld) RBC morphology [facility] Globulin Calc (S) [Mass/Vol] Ordered By: Jose Alfredo Brantley on 06-18-2024 Globulin (S) [Mass/Vol] Serum globulin measurement by calculation (mass/volume) [facility] Glucose Glucometer (BldC) [M ass/Vol]Ordered By: Jose Alfredo Brantley on 06-18-2024 Glucose [Mass/Vol] Capillary blood gluc ose measurement by glucometer (mass/volume) [facility] Comment on above: Random Glucose Refer ence Range is dependent on time and content of last meal. Glucose of more than 200 mg/dL in a nonstressed, ambulatory subject supports the diagnosis of Diabetes Mellitus. Glucose Poct Glucometerson 1 08-19-2023 Glucose [Mass/Vol] 386 mg/dL Normal The [facility] Comment on above: Result Comment: [place] Glucose Reference Range is dependent on time and content of last meal. Glucose of more than 200 mg/dL in a nonstressed, ambulatory subject supports the diagnosis of Diabetes Mellitus. PERFORMED BY: [address] [place] [address] PATHOLOGIST CREDIT BALANCE SPECIALIST ANDRE PERALTA M.D. Performed By: #### G LULS #### Point of Care testing , Commemt1 Normal [facility] Comment on above: Result Comment: Glu2 : Will Repeat Test Performed By: #### G LULS #### Point of Care testing , Commemt2 WILL NOTIFY /KARIN Vasques The [facility] Comment on above: Result Comment: PERF ORMED BY: [facility] [address] [place] [address] PATHOLOGIST CREDIT BALANCE SPECIALIST ANDRE PERALTA M.D. Performed By: #### G LULS #### Point of Care testing , Glucose [Mass/Vol] 417 mg/dL Off scale high Th e [facility] Comment on above: Result Comment: [place] om Glucose Reference Range is dependent on time and content of last meal. Glucose of more than 200 mg/dL in a nonstressed, ambulatory subject supports the diagnosis of Diabetes Mellitus. Performed By: #### G LULS #### Point of Care testing , Commemt1 Normal [facility] Comment on above: Result Comment: Glu2 : Will Repeat Test PERFORMED BY: [place] [id number] PATHOLOGIST CREDIT BALANCE SPECIALIST ANDRE PERALTA M.D. Performed By: #### G LULS #### Point of Care testing , Glucose [Mass/Vol] 483 mg/dL Off scale high Th e [facility] Comment on above: Result Comment: [place] om Glucose Reference Range is dependent on time and content of last meal. Glucose of more than 200 mg/dL in a nonstressed, ambulatory subject supports the diagnosis of Diabetes Mellitus. Performed By: #### G LULS #### Point of Care testing , Glucose [Mass/Vol] 393 mg/dL Normal The [facility] Comment on above: Result Comment: [place] om Glucose Reference Range is dependent on time and content of last meal. Glucose of more than 200 mg/dL in a nonstressed, ambulatory subject supports the diagnosis of Diabetes Mellitus. PERFORMED BY: [address] [address] PATHOLOGIST CREDIT BALANCE SPECIALIST ANDRE PERALTA M.D. Performed By: #### G LULS #### Point of Care testing , Glucose [Mass/Vol] 85 mg/dL Normal [facility] Comment on above: Result Comment: [place] om Glucose Reference Range is dependent on time and content of last meal. Glucose of more than 200 mg/dL in a nonstressed, ambulatory subject supports the diagnosis of Diabetes Mellitus. PERFORMED BY: [address] [address] PATHOLOGIST CREDIT BALANCE SPECIALIST ANDRE PERALTA M.D. Performed By: #### G LULS #### Point of Care testing , Glucose [Mass/volume] in Ser um or PlasmaOrdered By: Jose Alfredo Brantley on 06-18-2024 Glucose [Mass/Vol] Glucose [Mass/volume ] in Serum or Plasma 70-100 [facility] Comment on above: ADA recommended refe rence rangeRandom Glucose Reference Range is dependent on time and content of last meal. Glucose of more than 200 mg/dL in a nonstressed, ambulatory subject supports the diagnosis of Diabetes Mellitus. Hematocrit Auto (Bld) [Volum e fraction]Ordered By: Jose Alfredo Brantley on 06-18-2024 Hematocrit (Bld) [Volume fraction] Hematocrit [Volume Fraction] of Blood by Automated count Low 38.8-50.0 [facility] Hemoglobin [Mass/volume] in BloodOrdered By: Jose Alfredo Brantley on 06-18-2024 Hemoglobin (Bld) [Mass/Vol] Hemoglobin [Mass/volume] in Blood Low 13.0-17.0 [facility] Hypochromia LM Ql (Bld)Order ed By: Jose Alfredo Brantley on 06-18-2024 Hypochromia Ql (Bld) Hypochromia [Presen ce] in Blood by Light microscopy [facility] Leukocytes [#/volume] correc robert for nucleated erythrocytes in Blood by Automated counOrdered By: Jose Alfredo Brantley on 06-18-2024 WBC corrected for nucl RBC Auto (Bld) [#/Vol] Leukocytes [#/volume] corrected for nucleated erythrocytes in Blood by Automated coun 4.1-10.5 [facility] Lymphocytes Auto (Bld) [#/Vo l]Ordered By: Jose Alfredo Brantley on 06-18-2024 Lymphocytes (Bld) [#/Vol] Lymphocytes [#/volume] in Blood by Automated count [facility] Lymphocytes/100 WBC Auto (Bl d)Ordered By: Jose Alfredo Brantley on 06-18-2024 Lymphocytes/100 WBC (Bld) Lymphocytes/100 leukocytes in Blood by Automated count [facility] Lymphocytes/100 WBC Manual c nt (Bld)Ordered By: Jose Alfredo Brantley on 06-18-2024 Lymphocytes/100 WBC (Bld) Lymphocytes/100 leukocytes in Blood by Manual count Low 18-42 [facility] MCH Auto (RBC) [Entitic mass ]Ordered By: Jose Alfredo Brantley on 06-18-2024 MCH (RBC) [Entitic mass] MCH [Entitic mass] by Automated count Low 27.5-35.2 [facility] MCHC Auto (RBC) [Mass/Vol]Or dered By: Jose Alfredo Brantley on 06-18-2024 MCHC (RBC) [Mass/Vol] MCHC [Mass/volume] by Automated count 32.5-35.6 [facility] MCV Auto (RBC) [Entitic vol] Ordered By: Jose Alfredo Brantley on 06-18-2024 MCV (RBC) [Entitic vol] MCV [Entitic volume] by Automated count Low 83.5-101 [facility] Macrocytes LM Ql (Bld)Ordere d By: Jose Alfredo Brantley on 06-18-2024 Macrocytes Ql (Bld) Macrocytes [Presence ] in Blood by Light microscopy [facility] Microcytes LM Ql (Bld)Ordere d By: Jose Alfredo Brantley on 06-18-2024 Microcytes Ql (Bld) Microcytes [Presence ] in Blood by Light microscopy [facility] Monocytes Auto (Bld) [#/Vol] Ordered By: Jose Alfredo Brantley on 06-18-2024 Monocytes (Bld) [#/Vol] Automated blood monocyte count [facility] Monocytes/100 WBC Auto (Bld) Ordered By: Jose Alfredo Brantley on 06-18-2024 Monocytes/100 WBC (Bld) Automated monocyte % [facility] Monocytes/100 WBC Manual cnt (Bld)Ordered By: Jose Alfredo Brantley on 06-18-2024 Monocytes/100 WBC (Bld) Monocytes/100 leukocytes in Blood by Manual count High 2-11 [facility] Neutrophils Auto (Bld) [#/Vo l]Ordered By: Jose Alfredo Brantley on 06-18-2024 Neutrophils (Bld) [#/Vol] Neutrophils [#/volume] in Blood by Automated count [facility] Neutrophils/100 WBC Auto (Bl d)Ordered By: Jose Alfredo Brantley on 06-18-2024 Neutrophils/100 WBC (Bld) Automated neutrophil % [facility] No Panel InformationOrdered By: Jose Alfredo Brantley on 12-08-2024 Bedside Glucose #[address]/rn [facility] Bedside Glucose Comment See comment [facility] Comment on above: Glu2: Will Repeat Te st Estimated GFR (CKD-EPI) > 60.0 mL/Min [facility] Creatinine Clearance (Chem 50.22 [facility] Nucleated erythrocytes [Pres ence] in Blood by Automated countOrdered By: Jose Alfredo Brantley on 06-18-2024 Nucleated RBC Auto Ql (Bld) Nucleated erythrocytes [Presence] in Blood by Automated count [facility] Platelet adequacy [Presence] in Blood by Light microscopyOrdered By: Jose Alfredo Brantley on 06-18-2024 Platelets LM Ql (Bld) Platelet adequacy [Presence] in Blood by Light microscopy Normal [facility] Platelet mean volume Auto (B ld) [Entitic vol]Ordered By: Jose Alfredo Brantley on 06-18-2024 Platelet mean volume (Bld) [Entitic vol] Platelet mean volume [Entitic volume] in Blood by Automated count 6.6-10.1 [facility] Platelet morphology finding [Identifier] in BloodOrdered By: Jose Alfredo Brantley on 06-18-2024 Platelet morphology finding Nom (Bld) Platelet morphology finding [Identifier] in Blood [facility] Platelets Auto (Bld) [#/Vol] Ordered By: Jose Alfredo Brantley on 06-18-2024 Platelets (Bld) [#/Vol] Platelets [#/volume] in Blood by Automated count 150-450 [facility] Platelets Large [Presence] i n Blood by Light microscopyOrdered By: Jose Alfredo Brantley on 06-18-2024 Platelets Large LM Ql (Bld) Platelets Large [Presence] in Blood by Light microscopy [facility] Poikilocytosis [Presence] in Blood by Light microscopyOrdered By: Jose Alfredo Brantley on 06-18-2024 Poikilocytosis LM Ql (Bld) Poikilocytosis [Presence] in Blood by Light microscopy [facility] Polychromasia [Presence] in Blood by Light microscopyOrdered By: Jose Alfredo Brantley on 06-18-2024 Polychromasia LM Ql (Bld) Polychromasia [Presence] in Blood by Light microscopy [facility] Potassium [Moles/volume] in Serum or PlasmaOrdered By: Jose Alfredo Brantley on 06-18-2024 Potassium [Moles/Vol] Potassium [Moles/v olume] in Serum or Plasma 3.5-5.1 [facility] Protein [Mass/volume] in Ser um or PlasmaOrdered By: Jose Alfredo Brantley on 06-18-2024 Protein [Mass/Vol] Protein [Mass/volume ] in Serum or Plasma 6.4-8.9 [facility] RBC Auto (Bld) [#/Vol]Ordere d By: Jose Alfredo Brantley on 06-18-2024 RBC (Bld) [#/Vol] Erythrocytes [#/volu me] in Blood by Automated count 3.90-5.60 [facility] Schistocytes [Presence] in B lood by Light microscopyOrdered By: Jose Alfredo Brantley on 06-18-2024 Schistocytes LM Ql (Bld) Schistocytes [Presence] in Blood by Light microscopy [facility] Segmented neutrophils/100 WB C Manual cnt (Bld)Ordered By: Jose Alfredo Brantley on 06-18-2024 Segmented neutrophils/100 WBC (Bld) Manual blood segmented neutrophils/100 leukocytes 50-70 [facility] Serum or plasma albumin/glob ulin mass ratioOrdered By: Jose Alfredo Brantley on 06-18-2024 Albumin/Globulin [Mass ratio] Serum or plasma albumin/globulin mass ratio [facility] Serum or plasma anion gap de terminationOrdered By: Jose Alfredo Brantley on 06-18-2024 Anion gap [Moles/Vol] Serum or plasma an ion gap determination 6.0-15.0 [facility] Sodium [Moles/volume] in Ser um or PlasmaOrdered By: Jose Alfredo Brantley on 06-18-2024 Sodium [Moles/Vol] Sodium [Moles/volume ] in Serum or Plasma 136-145 [facility] Target cells [Presence] in B lood by Light microscopyOrdered By: Jose Alfredo Brantley on 06-18-2024 Target cells LM Ql (Bld) Target cells [facility] Urea nitrogen [Mass/volume] in Serum or PlasmaOrdered By: Jose Alfredo Brantley on 06-18-2024 Urea nitrogen [Mass/Vol] Urea nitrogen [Mass/volume] in Serum or Plasma 7-25 [facility] WBC Auto (Bld) [#/Vol]Ordere d By: Jose Alfredo Karon on 06-18-2024 WBC (Bld) [#/Vol] Leukocytes [#/volume ] in Blood by Automated count 4.1-10.5 [facility] Comprehensive Metabolic Pane jairo 06-17-2024 Albumin [Mass/Vol] 3.3 g/dL Low 3.5-5.7 [facility] Comment on above: Performed By: #### C MP, SCAN CBC, PHOS, MG ####[address] [place] [id number] [facility] Albumin/Globulin [Mass ratio] 1.2 {ratio} Normal [facility] Comment on above: Performed By: #### C MP, SCAN CBC, PHOS, MG ####[address] [place] [id number] [facility] ALP [Catalytic activity/Vol] 109 U/L High 34-104 [facility] Comment on above: Performed By: #### C MP, SCAN CBC, PHOS, MG ####[address] [place] [id number] [facility] ALT [Catalytic activity/Vol] 12 U/L Normal 7-52 [facility] Comment on above: Performed By: #### C MP, SCAN CBC, PHOS, MG ####[place] [id number] [facility] Anion gap [Moles/Vol] 11.1 mmol/L Normal 6.0-15.0 Th e [facility] Comment on above: Performed By: #### C MP, SCAN CBC, PHOS, MG ####[place] [id number] [facility] AST [Catalytic activity/Vol] 20 U/L Normal 13-39 [facility] Comment on above: Performed By: #### C MP, SCAN CBC, PHOS, MG ####[place] [id number] [facility] Bilirubin [Mass/Vol] 0.4 mg/dL Normal 0.3-1.0 [facility] Comment on above: Performed By: #### C MP, SCAN CBC, PHOS, MG ####[address] Calcium [Mass/Vol] 8.4 mg/dL Low 8.6-10.3 [facility] Comment on above: Performed By: #### C MP, SCAN CBC, PHOS, MG ####[address] Chloride [Moles/Vol] 101 mmol/L Normal 98-107 [facility] Comment on above: Performed By: #### C MP, SCAN CBC, PHOS, MG ####[address] CO2 [Moles/Vol] 27.8 mmol/L Normal 21.0-31.0 [facility] Comment on above: Performed By: #### C MP, SCAN CBC, PHOS, MG ####[address] Creatinine [Mass/Vol] 0.79 mg/dL Normal 0.70-1.30 [facility] Comment on above: Performed By: #### C MP, SCAN CBC, PHOS, MG ####[address] Creatinine Clr Calc Pharmacy 62.66 Normal [facility] Comment on above: Performed By: #### C MP, SCAN CBC, PHOS, MG ####[address] GFR/1.73 sq M.predicted MDRD (S/P/Bld) [Vol rate/Area] mL/min/{1.73_m2} Normal [facility] Comment on above: Performed By: #### C MP, SCAN CBC, PHOS, MG ####[address] Globulin (S) [Mass/Vol] 2.8 g/dL Normal [facility] Comment on above: Performed By: #### C MP, SCAN CBC, PHOS, MG ####[address] Glucose [Mass/Vol] 79 mg/dL Normal 70-100 [facility] Comment on above: Result Comment: [facility] Glucose Reference Range is dependent on time and content of last meal. Glucose of more than 200 mg/dL in a nonstressed, ambulatory subject supports the diagnosis of Diabetes Mellitus. ADA recommended reference range Performed By: #### C MP, SCAN CBC, PHOS, MG ####[address] Potassium [Moles/Vol] 3.9 mmol/L Normal 3.5-5.1 [facility] Comment on above: Performed By: #### C MP, SCAN CBC, PHOS, MG ####[place] [address] Protein [Mass/Vol] 6.1 g/dL Low 6.4-8.9 [facility] Comment on above: Performed By: #### C MP, SCAN CBC, PHOS, MG ####[address] Sodium [Moles/Vol] 136 mmol/L Normal 136-145 [facility] Comment on above: Performed By: #### C MP, SCAN CBC, PHOS, MG ####[address] Urea nitrogen [Mass/Vol] 22 mg/dL Normal 7-25 [facility] Comment on above: Performed By: #### C MP, SCAN CBC, PHOS, MG ####[address] Glucose Poct Glucometerson 1 08-18-2023 Commemt1 Glu2: Cleaned Meter Normal [facility] Comment on above: Result Comment: PERF ORMED BY: [facility] [address] [place] [address] PATHOLOGIST CREDIT BALANCE SPECIALIST ANDRE PERALTA M.D. Performed By: #### G LULS #### Point of Care testing , Glucose [Mass/Vol] 229 mg/dL Normal [facility] Comment on above: Result Comment: [place] om Glucose Reference Range is dependent on time and content of last meal. Glucose of more than 200 mg/dL in a nonstressed, ambulatory subject supports the diagnosis of Diabetes Mellitus. Performed By: #### G LULS #### Point of Care testing , Commemt1 Glu2: Cleaned Meter Normal [facility] Comment on above: Result Comment: PERF ORMED BY: [address] [place] [address] PATHOLOGIST CREDIT BALANCE SPECIALIST ANDRE PERALTA M.D. Performed By: #### G LULS #### Point of Care testing , Glucose [Mass/Vol] 250 mg/dL Normal [facility] Comment on above: Result Comment: [place] om Glucose Reference Range is dependent on time and content of last meal. Glucose of more than 200 mg/dL in a nonstressed, ambulatory subject supports the diagnosis of Diabetes Mellitus. Performed By: #### G LULS #### Point of Care testing , Glucose [Mass/Vol] 352 mg/dL Normal [facility] Comment on above: Result Comment: [place] om Glucose Reference Range is dependent on time and content of last meal. Glucose of more than 200 mg/dL in a nonstressed, ambulatory subject supports the diagnosis of Diabetes Mellitus. PERFORMED BY: [address] [place] [address] PATHOLOGIST CREDIT BALANCE SPECIALIST ANDRE PERALTA M.D. Performed By: #### G LULS ####Point of Care testing, Glucose [Mass/Vol] 82 mg/dL Normal [facility] Comment on above: Result Comment: [place] om Glucose Reference Range is dependent on time and content of last meal. Glucose of more than 200 mg/dL in a nonstressed, ambulatory subject supports the diagnosis of Diabetes Mellitus. PERFORMED BY: [address] [place] [address] PATHOLOGIST CREDIT BALANCE SPECIALIST ANDRE PERALTA M.D. Performed By: #### G LULS ####Point of Care testing, Magnesiumon 06-17-2024 Magnesium [Mass/Vol] 1.7 mg/dL Low 1.9-2.7 [facility] Comment on above: Result Comment: PERF ORMED BY: [facility] [address] [place] [address] PATHOLOGIST CREDIT BALANCE SPECIALIST ANDRE PERALTA M.D. Performed By: #### C MP, SCAN CBC, PHOS, MG ####[address] Magnesium [Mass/volume] in S jihan or PlasmaOrdered By: Jose Alfredo Brantley on 06-17-2024 Magnesium [Mass/Vol] Magnesium [Mass/vol ume] in Serum or Plasma Low 1.9-2.7 [facility] Phosphate [Mass/volume] in S jihan or PlasmaOrdered By: Jose Alfredo Brantley on 06-17-2024 Phosphate [Mass/Vol] Phosphate [Mass/vol ume] in Serum or Plasma 2.5-4.5 [facility] Phosphoruson 06-17-2024 Phosphate [Mass/Vol] 3.7 mg/dL Normal 2.5-4.5 [facility] Comment on above: Performed By: #### C MP, SCAN CBC, PHOS, MG ####[address] Scan and CBCon 06-17-2024 Acanthocytes Moderate Normal [facility] Comment on above: Performed By: #### C MP, SCAN CBC, PHOS, MG ####[address] Anisocytosis Ql (Bld) Marked Normal [facility] Comment on above: Performed By: #### C MP, SCAN CBC, PHOS, MG ####[address] Basophils (Bld) [#/Vol] 0.1 10*3/uL Normal 0.0-0.2 [facility] Comment on above: Performed By: #### C MP, SCAN CBC, PHOS, MG ####[address] Basophils/100 WBC (Bld) 0.9 % Normal . [facility] Comment on above: Performed By: #### C MP, SCAN CBC, PHOS, MG ####[address] Crenated RBC Slight Normal [facility] Comment on above: Performed By: #### C MP, SCAN CBC, PHOS, MG ####[address] Eosinophils (Bld) [#/Vol] 0.2 10*3/uL Normal 0.0-0.45 [facility] Comment on above: Performed By: #### C MP, SCAN CBC, PHOS, MG ####[address] [address] Eosinophils/100 WBC (Bld) 2.0 % Normal . [facility] Comment on above: Performed By: #### C MP, SCAN CBC, PHOS, MG ####[address] Erythrocyte distribution width (RBC) [Ratio] 20.3 % High 12.0-14.8 [facility] Comment on above: Performed By: #### C MP, SCAN CBC, PHOS, MG ####[address] Hematocrit (Bld) [Volume fraction] 35.1 % Low 38.8-50.0 [facility] Comment on above: Performed By: #### C MP, SCAN CBC, PHOS, MG ####[address] Hemoglobin (Bld) [Mass/Vol] 11.5 g/dL Low 13.0-17.0 [facility] Comment on above: Performed By: #### C MP, SCAN CBC, PHOS, MG ####[address] Hypochromasia Moderate Normal The [facility] Comment on above: Performed By: #### C MP, SCAN CBC, PHOS, MG ####[address] [place] [address] [place] Large Platelets Slight Normal The [facility] Comment on above: Result Comment: PERF ORMED BY: [facility] [place] [address] PATHOLOGIST CREDIT BALANCE SPECIALIST ANDRE PERALTA M.D. Performed By: #### C MP, SCAN CBC, PHOS, MG ####[address] Lymphocytes (Bld) [#/Vol] 1.7 10*3/uL Normal 1.00-4.8 [facility] Comment on above: Performed By: #### C MP, SCAN CBC, PHOS, MG ####[address] Lymphocytes/100 WBC (Bld) 19.4 % Normal . [facility] Comment on above: Performed By: #### C MP, SCAN CBC, PHOS, MG ####[address] MCH (RBC) [Entitic mass] 25.5 pg Low 27.5-35.2 [facility] Comment on above: Performed By: #### C MP, SCAN CBC, PHOS, MG ####[address] MCV (RBC) [Entitic vol] 77.8 fL Low 83.5-101 [facility] Comment on above: Performed By: #### C MP, SCAN CBC, PHOS, MG ####[address] Mean Corpuscular HGB Conc 32.8 g/dL Normal 32.5-35.6 [facility] Comment on above: Performed By: #### C MP, SCAN CBC, PHOS, MG ####[address] Microcytosis Slight Normal The [facility] Comment on above: Performed By: #### C MP, SCAN CBC, PHOS, MG ####[address] [address] [facility] Monocytes (Bld) [#/Vol] 1.2 10*3/uL High 0.0-0.8 [facility] Comment on above: Performed By: #### C MP, SCAN CBC, PHOS, MG ####[place] [id number] [facility] Monocytes/100 WBC (Bld) 14.4 % Normal . [facility] Comment on above: Performed By: #### C MP, SCAN CBC, PHOS, MG ####[address] Neutrophils (Bld) [#/Vol] 5.4 10*3/uL Normal 1.8-7.7 [facility] Comment on above: Performed By: #### C MP, SCAN CBC, PHOS, MG ####[address] Neutrophils/100 WBC (Bld) 63.3 % Normal . [facility] Comment on above: Performed By: #### C MP, SCAN CBC, PHOS, MG ####[address] NRBC% 0.0 /100{WBC} Normal 0-0.5 [facility] Comment on above: Performed By: #### C MP, SCAN CBC, PHOS, MG ####[place] [id number] [facility] Platelet Estimate Normal Normal Normal The [facility] Comment on above: Performed By: #### C MP, SCAN CBC, PHOS, MG ####[place] [id number] [facility] Platelet mean volume (Bld) [Entitic vol] 10.2 fL High 6.6-10.1 [facility] Comment on above: Performed By: #### C MP, SCAN CBC, PHOS, MG ####[place] [id number] [facility] Platelets (Bld) [#/Vol] 213 10*3/uL Normal 150-450 [facility] Comment on above: Performed By: #### C MP, SCAN CBC, PHOS, MG ####[facility] [place] [address] [facility] Poikilocytosis Marked Normal The [facility] Comment on above: Performed By: #### C MP, SCAN CBC, PHOS, MG ####[facility] [place] [address] [facility] Polychromasia Slight Normal The [facility] Comment on above: Performed By: #### C MP, SCAN CBC, PHOS, MG ####[facility] [place] [address] [facility] RBC (Bld) [#/Vol] 4.52 10*6/uL Normal 3.90-5.60 The [facility] Comment on above: Performed By: #### C MP, SCAN CBC, PHOS, MG ####[address] [address] [facility] Schistocytes Moderate Normal The [facility] Comment on above: Performed By: #### C MP, SCAN CBC, PHOS, MG ####[address] [address] [facility] Target Cells Moderate Normal [facility] Comment on above: Performed By: #### C MP, SCAN CBC, PHOS, MG ####[facility] [place] [address] [facility] WBC (Bld) [#/Vol] 8.5 10*3/uL Normal 4.1-10.5 [facility] Comment on above: Performed By: #### C MP, SCAN CBC, PHOS, MG ####[address] [address] [facility] Bacteria identified Aer cx N om (Unsp spec)Ordered By: Vargas Reis on 06-16-2024 Superficial Wound Culture Abnormal [facility] Blood Cultureon 06-16-2024 Bacteria identified Cx Nom (Bld) NO GROWTH 5 DAYS PERFORMED BY: [facility] [address] [place] [id number] PATHOLOGIST CREDIT BALANCE SPECIALIST ANDRE PERALTA M.D. Normal [facility] Comment on above: Performed By: #### G LULS #### Point of Care testing , Bacteria identified Cx Nom (Bld) NO GROWTH 5 DAYS PERFORMED BY: [place] [address] PATHOLOGIST CREDIT BALANCE SPECIALIST ANDRE PERALTA M.D. Normal [facility] Comment on above: Performed By: #### G LULS #### Point of Care testing , Bacteria identified Cx Nom (Bld) NO GROWTH 5 DAYS PERFORMED BY: [place] [address] PATHOLOGIST CREDIT BALANCE SPECIALIST ANDRE PERALTA M.D. Normal [facility] Comment on above: Performed By: #### G LULS #### Point of Care testing , CT abdomen w conon 4 CT abdomen w con [facility] [place] [address] CT Scan Report Signed Patient: Manolo Vickers MR#: [id number] 353 : 1935 Acct:[id number] Age/Sex: 89 / M ADM Date: 06/16/24 Loc: ER Room: Type: [facility] ER Attending Dr: Copies to: Vargas [...] Sheldon Johnson M.D.06/16/2024 3:48 PM Dictation Location: [place] [address] Transcribed By: [facility] 06/16/24 1548 Dictated By: Sheldon Johnson DO 06/16/24 1535 Signed By: 06/16/24 1548 Normal [facility] Comprehensive Metabolic Pane jairo 06-16-2024 Albumin [Mass/Vol] 3.5 g/dL Normal 3.5-5.7 The [facility] Comment on above: Performed By: #### G LULS #### Point of Care testing , Albumin/Globulin [Mass ratio] 1.2 {ratio} Normal [facility] Comment on above: Performed By: #### G LULS #### Point of Care testing , ALP [Catalytic activity/Vol] 116 U/L High 34-104 [facility] Comment on above: Performed By: #### G LULS #### Point of Care testing , ALT [Catalytic activity/Vol] 17 U/L Normal 7-52 [facility] Comment on above: Performed By: #### G LULS #### Point of Care testing , Anion gap [Moles/Vol] 10.2 mmol/L Normal 6.0-15.0 Th e [facility] Comment on above: Performed By: #### G LULS #### Point of Care testing , AST [Catalytic activity/Vol] 24 U/L Normal 13-39 [facility] Comment on above: Performed By: #### G LULS #### Point of Care testing , Bilirubin [Mass/Vol] 0.4 mg/dL Normal 0.3-1.0 [facility] Comment on above: Performed By: #### G LULS #### Point of Care testing , Calcium [Mass/Vol] 8.8 mg/dL Normal 8.6-10.3 [facility] Comment on above: Performed By: #### G LULS #### Point of Care testing , Chloride [Moles/Vol] 98 mmol/L Normal 98-107 [facility] Comment on above: Performed By: #### G LULS #### Point of Care testing , CO2 [Moles/Vol] 30.4 mmol/L Normal 21.0-31.0 The [facility] Comment on above: Performed By: #### G LULS #### Point of Care testing , Creatinine [Mass/Vol] 1.10 mg/dL Normal 0.70-1.30 [facility] Comment on above: Performed By: #### G LULS #### Point of Care testing , Creatinine Clr Calc Pharmacy 50.08 Normal [facility] Comment on above: Result Comment: PERF ORMED BY: [address] [place] [address] PATHOLOGIST CREDIT BALANCE SPECIALIST ANDRE PERALTA M.D. Performed By: #### G LULS #### Point of Care testing , GFR/1.73 sq M.predicted MDRD (S/P/Bld) [Vol rate/Area] mL/min/{1.73_m2} Normal [facility] Comment on above: Performed By: #### G LULS #### Point of Care testing , Globulin (S) [Mass/Vol] 3.0 g/dL Normal [facility] Comment on above: Performed By: #### G LULS #### Point of Care testing , Glucose [Mass/Vol] 118 mg/dL High 70-100 [facility] Comment on above: Result Comment: [place] Glucose Reference Range is dependent on time and content of last meal. Glucose of more than 200 mg/dL in a nonstressed, ambulatory subject supports the diagnosis of Diabetes Mellitus. ADA recommended reference range Performed By: #### G LULS #### Point of Care testing , Potassium [Moles/Vol] 4.6 mmol/L Normal 3.5-5.1 [facility] Comment on above: Performed By: #### G LULS #### Point of Care testing , Protein [Mass/Vol] 6.5 g/dL Normal 6.4-8.9 [facility] Comment on above: Performed By: #### G LULS #### Point of Care testing , Sodium [Moles/Vol] 134 mmol/L Low 136-145 [facility] Comment on above: Performed By: #### G LULS #### Point of Care testing , Urea nitrogen [Mass/Vol] 29 mg/dL High 7-25 [facility] Comment on above: Performed By: #### G LULS #### Point of Care testing , ECG 12 lead ECGon 06-16-2024 ECG 12 lead ECG [facility] [place] [address] Electrocardiograph Report Signed Patient: Manolo Vickers MR#: [id number] 353 : 1935 Acct:[id number] Age/Sex: 89 / M ADM Date: 06/16/24 Loc: Room: [address] [place] [address] Type: ADM IN Attending Dr: Jose Alfredo [...] Abnormal ECG When compared with ECG of 05-Nov-2024 12:25, 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 Sinus rhythm Minimal criteria for Septal infarct are no longer present T wave inversion less evident in Anterior leads Confirmed by MARVIN KONG DO ([id number]) on 06/16/2024 7:24:37 PM Referred By: Electronically Signed By: MARVIN KONG DO Transcribed By: MUS Signed By Marvin Kong DO 06/16 Normal [facility] Glucose Poct Glucometerson 1 08-17-2023 Glucose [Mass/Vol] 385 mg/dL Normal [facility] Comment on above: Result Comment: [facility] Glucose Reference Range is dependent on time and content of last meal. Glucose of more than 200 mg/dL in a nonstressed, ambulatory subject supports the diagnosis of Diabetes Mellitus. PERFORMED BY: [address] [place] [address] PATHOLOGIST CREDIT BALANCE SPECIALIST ANDRE PERALTA M.D. Performed By: #### G LULS ####Point of Care testing, Commemt1 Normal [facility] Comment on above: Result Comment: Glu2 : Will Repeat Test Performed By: #### G LULS ####Point of Care testing, Commemt2 WILL NOTIFY /KARIN Normal [facility] Comment on above: Result Comment: PERF ORMED BY: [address] [place] [address] PATHOLOGIST CREDIT BALANCE SPECIALIST ANDRE PERALTA M.D. Performed By: #### G LULS ####Point of Care testing, Glucose [Mass/Vol] 401 mg/dL Off scale high Th e [facility] Comment on above: Result Comment: [facility] [...] cells LM Ql (Bld) Helmet cell detection [facility] - Microbiology an d Antimicrobial susceptibilityOrdered By: Marvin Kong on 06-16-2024 Bacteria identified Cx Nom (Bld) NO GROWTH 5 DAYS [facility] Bacteria identified Cx Nom (Bld) NO GROWTH 5 DAYS [facility] - Microbiology an d Antimicrobial susceptibilityOrdered By: Vargas Reis on 06-16-2024 Bacteria identified Cx Nom (Bld) NO GROWTH 5 DAYS [facility] Lactate [Moles/volume] in Se rum or PlasmaOrdered By: Marvin Kong on 06-16-2024 Lactate [Moles/Vol] Lactate [Moles/volum e] in Serum or Plasma 0.5-2.2 [facility] Lactic Acidon 06-16-2024 Lactate [Moles/Vol] 1.0 mmol/L Normal 0.5-2.2 [facility] Comment on above: Result Comment: PERF ORMED BY: [address] [place] [id number] PATHOLOGIST CREDIT BALANCE SPECIALIST ANDRE PERALTA M.D. Performed By: #### G LULS #### Point of Care testing , Monocyte distribution width [Entitic volume] in Blood by AutomatedOrdered By: Vargas Reis on 06-16-2024 Monocyte distribution width Auto (Bld) [Entitic vol] Monocyte distribution width [Entitic volume] in Blood by Automated High 0.00-20.00 [facility] Comment on above: For adults in ED, MD W > 20.0 may be associated with a higher risk of sepsis during the first 12 hrs of hospital admission Scan and CBCon 06-16-2024 Acanthocytes Slight Normal [facility] Comment on above: Performed By: #### G LULS #### Point of Care testing , Anisocytosis Ql (Bld) Marked Normal [facility] Comment on above: Performed By: #### G LULS #### Point of Care testing , Basophils (Bld) [#/Vol] 0.0 10*3/uL Normal 0.0-0.2 [facility] Comment on above: Result Comment: PERF ORMED BY: [facility] [address] [place] [address] PATHOLOGIST CREDIT BALANCE SPECIALIST ANDRE PERALTA M.D. Performed By: #### G LULS #### Point of Care testing , Basophils/100 WBC (Bld) 0.4 % Normal . [facility] Comment on above: Performed By: #### G LULS #### Point of Care testing , Crenated RBC Slight Normal [facility] Comment on above: Performed By: #### G LULS #### Point of Care testing , Eosinophils (Bld) [#/Vol] 0.1 10*3/uL Normal 0.0-0.45 [facility] Comment on above: Performed By: #### G LULS #### Point of Care testing , Eosinophils/100 WBC (Bld) 0.5 % Normal . [facility] Comment on above: Performed By: #### G LULS #### Point of Care testing , Erythrocyte distribution width (RBC) [Ratio] 20.2 % High 12.0-14.8 [facility] Comment on above: Performed By: #### G LULS #### Point of Care testing , Helmet Cells Slight Normal [facility] Comment on above: Performed By: #### G LULS #### Point of Care testing , Hematocrit (Bld) [Volume fraction] 36.1 % Low 38.8-50.0 [facility] Comment on above: Performed By: #### G LULS #### Point of Care testing , Hemoglobin (Bld) [Mass/Vol] 11.9 g/dL Low 13.0-17.0 [facility] Comment on above: Performed By: #### G LULS #### Point of Care testing , Hypochromasia Moderate Normal [facility] Comment on above: Performed By: #### G LULS #### Point of Care testing , Lymphocytes (Bld) [#/Vol] 2.3 10*3/uL Normal 1.00-4.8 [facility] Comment on above: Performed By: #### G LULS #### Point of Care testing , Lymphocytes/100 WBC (Bld) 22.7 % Normal . [facility] Comment on above: Performed By: #### G LULS #### Point of Care testing , Macrocytosis Slight Normal [facility] Comment on above: Performed By: #### G LULS #### Point of Care testing , MCH (RBC) [Entitic mass] 25.5 pg Low 27.5-35.2 [facility] Comment on above: Performed By: #### G LULS #### Point of Care testing , MCV (RBC) [Entitic vol] 77.4 fL Low 83.5-101 [facility] Comment on above: Performed By: #### G LULS #### Point of Care testing , Mean Corpuscular HGB Conc 33.0 g/dL Normal 32.5-35.6 [facility] Comment on above: Performed By: #### G LULS #### Point of Care testing , Microcytosis Slight Normal [facility] Comment on above: Performed By: #### G LULS #### Point of Care testing , Monocytes (Bld) [#/Vol] 1.2 10*3/uL High 0.0-0.8 [facility] Comment on above: Performed By: #### G LULS #### Point of Care testing , Monocytes/100 WBC (Bld) 21.77 % High 0.00-20.00 [facility] Comment on above: Result Comment: For adults in ED, MDW > 20.0 may be associated with a higher risk of sepsis during the first 12 hrs of hospital admission Performed By: #### G LULS #### Point of Care testing , Monocytes/100 WBC (Bld) 11.5 % Normal . [facility] Comment on above: Performed By: #### G LULS #### Point of Care testing , Neutrophils (Bld) [#/Vol] 6.5 10*3/uL Normal 1.8-7.7 [facility] Comment on above: Performed By: #### G LULS #### Point of Care testing , Neutrophils/100 WBC (Bld) 64.9 % Normal . [facility] Comment on above: Performed By: #### G LULS #### Point of Care testing , NRBC% 0.1 /100{WBC} Normal 0-0.5 [facility] Comment on above: Performed By: #### G LULS #### Point of Care testing , Platelet Estimate Normal Normal Normal [facility] Comment on above: Performed By: #### G LULS #### Point of Care testing , Platelet mean volume (Bld) [Entitic vol] 10.9 fL High 6.6-10.1 [facility] Comment on above: Performed By: #### G LULS #### Point of Care testing , Platelet Morphology Normal Normal Normal [facility] Comment on above: Result Comment: PERF ORMED BY: [facility] [address] [place] [address] PATHOLOGIST CREDIT BALANCE SPECIALIST ANDRE PERALTA M.D. Performed By: #### G LULS #### Point of Care testing , Platelets (Bld) [#/Vol] 233 10*3/uL Normal 150-450 [facility] Comment on above: Performed By: #### G LULS #### Point of Care testing , Poikilocytosis Marked Normal [facility] Comment on above: Performed By: #### G LULS #### Point of Care testing , Polychromasia Moderate Normal [facility] Comment on above: Performed By: #### G LULS #### Point of Care testing , RBC (Bld) [#/Vol] 4.67 10*6/uL Normal 3.90-5.60 [facility] Comment on above: Performed By: #### G LULS #### Point of Care testing , Schistocytes Moderate Normal [facility] Comment on above: Performed By: #### G LULS #### Point of Care testing , Target Cells Moderate Normal [facility] Comment on above: Performed By: #### G LULS #### Point of Care testing , WBC (Bld) [#/Vol] 10.1 10*3/uL Normal 4.1-10.5 [facility] Comment on above: Performed By: [...] RESISTANT TO ALL B-LACTAM DRUGS. PERFORMED BY: [address] [place] [address] PATHOLOGIST CREDIT BALANCE SPECIALIST ANDRE PERALTA M.D. Normal [facility] Comment on above: Performed By: #### G LULS #### Point of Care testing , Basic Metabolic Panelon 05-12 Anion gap [Moles/Vol] 11.5 mmol/L Normal 6.0-15.0 Th e [facility] Comment on above: Performed By: #### G LULS #### Point of Care testing , Calcium [Mass/Vol] 8.6 mg/dL Normal 8.6-10.3 [facility] Comment on above: Performed By: #### G LULS #### Point of Care testing , Chloride [Moles/Vol] 103 mmol/L Normal 98-107 [facility] Comment on above: Performed By: #### G LULS #### Point of Care testing , CO2 [Moles/Vol] 27.5 mmol/L Normal 21.0-31.0 [facility] Comment on above: Performed By: #### G LULS #### Point of Care testing , Creatinine [Mass/Vol] 0.75 mg/dL Normal 0.70-1.30 [facility] Comment on above: Performed By: #### G LULS #### Point of Care testing , Creatinine Clr Calc Pharmacy 60.91 Normal [facility] Comment on above: Result Comment: PERF ORMED BY: [facility] [address] [place] [address] PATHOLOGIST CREDIT BALANCE SPECIALIST ANDRE PERALTA M.D. Performed By: #### G LULS #### Point of Care testing , GFR/1.73 sq M.predicted MDRD (S/P/Bld) [Vol rate/Area] mL/min/{1.73_m2} Normal [facility] Comment on above: Performed By: #### G LULS #### Point of Care testing , Glucose [Mass/Vol] 80 mg/dL Normal 70-100 [facility] Comment on above: Result Comment: [facility] Glucose Reference Range is dependent on time and content of last meal. Glucose of more than 200 mg/dL in a nonstressed, ambulatory subject supports the diagnosis of Diabetes Mellitus. ADA recommended reference range Performed By: #### G LULS #### Point of Care testing , Potassium [Moles/Vol] 4.0 mmol/L Normal 3.5-5.1 [facility] Comment on above: Performed By: #### G LULS #### Point of Care testing , Sodium [Moles/Vol] 138 mmol/L Normal 136-145 [facility] Comment on above: Performed By: #### G LULS #### Point of Care testing , Urea nitrogen [Mass/Vol] 19 mg/dL Normal 7-25 [facility] Comment on above: Performed By: #### G LULS #### Point of Care testing , Calcium [Mass/volume] in Ser um or PlasmaOrdered By: Mikel Root on 05-25-2024 Calcium [Mass/Vol] Calcium [Mass/volume ] in Serum or Plasma 8.6-10.3 [facility] Carbon dioxide, total [Moles /volume] in Serum or PlasmaOrdered By: Mikel Root on 05-25-2024 CO2 [Moles/Vol] Carbon dioxide, tota l [Moles/volume] in Serum or Plasma 21.0-31.0 [facility] Chloride [Moles/volume] in S jihan or PlasmaOrdered By: Mikel Root on 05-25-2024 Chloride [Moles/Vol] Chloride [Moles/vol ume] in Serum or Plasma 98-107 [facility] Creatinine [Mass/volume] in Serum or PlasmaOrdered By: Mikel Root on 05-25-2024 Creatinine [Mass/Vol] Creatinine [Mass/v olume] in Serum or Plasma 0.70-1.30 [facility] Glucose Glucometer (BldC) [M ass/Vol]Ordered By: Mikel Root on 05-25-2024 Glucose [Mass/Vol] Capillary blood gluc ose measurement by glucometer (mass/volume) [facility] Comment on above: Random Glucose Refer ence Range is dependent on time and content of last meal. Glucose of more than 200 mg/dL in a nonstressed, ambulatory subject supports the diagnosis of Diabetes Mellitus. Glucose Poct Glucometerson 1 07-25-2023 Glucose [Mass/Vol] 87 mg/dL Normal [facility] Comment on above: Result Comment: [facility] Glucose Reference Range is dependent on time and content of last meal. Glucose of more than 200 mg/dL in a nonstressed, ambulatory subject supports the diagnosis of Diabetes Mellitus. PERFORMED BY: [place] [address] [place] [address] PATHOLOGIST CREDIT BALANCE SPECIALIST ANDRE PERALTA M.D. Performed By: #### G LULS #### Point of Care testing , Glucose [Mass/volume] in Ser um or PlasmaOrdered By: Mikel Root on 05-25-2024 Glucose [Mass/Vol] Glucose [Mass/volume ] in Serum or Plasma 70-100 [facility] Comment on above: ADA recommended refe rence rangeRandom Glucose Reference Range is dependent on time and content of last meal. Glucose of more than 200 mg/dL in a nonstressed, ambulatory subject supports the diagnosis of Diabetes Mellitus. No Panel InformationOrdered By: Mikel Root on 05-25-2024 Estimated GFR (CKD-EPI) > 60.0 mL/Min [facility] Creatinine Clearance (Chem 60.91 [facility] Potassium [Moles/volume] in Serum or PlasmaOrdered By: Mikel Root on 05-25-2024 Potassium [Moles/Vol] Potassium [Moles/v olume] in Serum or Plasma 3.5-5.1 [facility] Serum or plasma anion gap de terminationOrdered By: Mikel Root on 05-25-2024 Anion gap [Moles/Vol] Serum or plasma an ion gap determination 6.0-15.0 [facility] Sodium [Moles/volume] in Ser um or PlasmaOrdered By: Mikel Root on 05-25-2024 Sodium [Moles/Vol] Sodium [Moles/volume ] in Serum or Plasma 136-145 [facility] Urea nitrogen [Mass/volume] in Serum or PlasmaOrdered By: Mikel Root on 05-25-2024 Urea nitrogen [Mass/Vol] Urea nitrogen [Mass/volume] in Serum or Plasma 7-25 [facility] X-ray reportOrdered By: Thania Rosales on 05-25-2024 Study report [facility] [place] [address] XRay Report Signed Patient: Manolo Vickers MR#: [id number] : 1935 Acct:[id number] Age/Sex: 89 / M ADM Date: 4 Loc: Room: [address] [place] [address] Type: ADM IN Attending Dr: Abdulaziz Root [...] Sofia Rosales M.D.05/25/2024 8:13 AM Dictation Location: [place] [address] Transcribed By: [facility] 05/25/24812 Dictated By: Sofia Rosales MD 05/25/24809 Signed By: 05/25/24812 [facility] Work Phone: XR chest 2V*on 05-25-2024 XR chest 2V* [facility] Main [place] [address] [place] [address] XRay Report Signed Patient: Manolo Vickers MR#: [id number] : 1935 Acct:[id number] Age/Sex: 89 / M ADM Date: 05/24/24 Loc: Room: [address] [place] [address] Type: ADM IN Attending Dr: Abdulaziz Root [...] Sofia Rosales M.D.05/25/2024 8:13 AM Dictation Location: [place] [address] Transcribed By: ERIBERTO 05/25/24812 Dictated By: Sofia Rosales MD 05/25/24809 Signed By: 05/25/24812 Normal [facility] Basic Metabolic Panelon 05-12 Anion gap [Moles/Vol] 11.9 mmol/L Normal 6.0-15.0 e [facility] Comment on above: Performed By: #### B MP ####[place] [id number] [facility] Calcium [Mass/Vol] 8.8 mg/dL Normal 8.6-10.3 [facility] Comment on above: Performed By: #### B MP ####[place] [id number] [facility] Chloride [Moles/Vol] 103 mmol/L Normal 98-107 [facility] Comment on above: Performed By: #### B MP ####[place] [id number] [facility] CO2 [Moles/Vol] 27.0 mmol/L Normal 21.0-31.0 [facility] Comment on above: Performed By: #### B MP ####[place] [id number] [facility] Creatinine [Mass/Vol] 0.82 mg/dL Normal 0.70-1.30 [facility] Comment on above: Performed By: #### B MP ####[address] [address] [facility] Creatinine Clr Calc Pharmacy 61.04 Normal [facility] Comment on above: Result Comment: PERF ORMED BY: [facility] [place] [id number] PATHOLOGIST CREDIT BALANCE SPECIALIST ANDRE PERALTA M.D. Performed By: #### B MP ####[place] [id number] [facility] GFR/1.73 sq M.predicted MDRD (S/P/Bld) [Vol rate/Area] mL/min/{1.73_m2} Normal [facility] Comment on above: Performed By: #### B MP ####[address] Glucose [Mass/Vol] 108 mg/dL High 70-100 [facility] Comment on above: Result Comment: [place] Glucose Reference Range is dependent on time and content of last meal. Glucose of more than 200 mg/dL in a nonstressed, ambulatory subject supports the diagnosis of Diabetes Mellitus. ADA recommended reference range Performed By: #### B MP ####[place] [id number] [facility] Potassium [Moles/Vol] 3.9 mmol/L Normal 3.5-5.1 [facility] Comment on above: Performed By: #### B MP ####[place] [id number] [facility] Sodium [Moles/Vol] 138 mmol/L Normal 136-145 [facility] Comment on above: Performed By: #### B MP ####[place] [id number] [facility] Urea nitrogen [Mass/Vol] 22 mg/dL Normal 7-25 [facility] Comment on above: Performed By: #### B MP ####[place] [id number] [facility] Coagulation Profileon 2023 aPTT Coag (Bld) [Time] 30.1 s Normal 25.1-36.5 Th e [facility] Comment on above: Result Comment: A he matocrit value greater than 55% may lead to inaccurate results in coagulation testing. Patients having hematocrit values >55% require a special collection tube for coagulation studies. Please contact the laboratory at [phone] for redraw instructions. PERFORMED BY: [facility] [address] [place] [address] PATHOLOGIST CREDIT BALANCE SPECIALIST ANDRE PERALTA M.D. Performed By: #### P P ####[place] [id number] [facility] INR Coag (PPP) [Relative time] 1.1 {INR} Normal [facility] Comment on above: Result [...] - 4.5 Performed By: #### P P ####[place] [id number] [facility] PT Coag (PPP) [Time] 12.9 s Normal 9.0-12.9 [facility] Comment on above: Result Comment: A he matocrit value greater than 55% may lead to inaccurate results in coagulation testing. Patients having hematocrit values >55% require a special collection tube for coagulation studies. Please contact the laboratory at [phone] for redraw instructions. Performed By: #### P P ####[address] [address] [facility] Glucose Poct Glucometerson 07-24-2023 Glucose [Mass/Vol] 68 mg/dL Normal [facility] Comment on above: Result Comment: [facility] Glucose Reference Range is dependent on time and content of last meal. Glucose of more than 200 mg/dL in a nonstressed, ambulatory subject supports the diagnosis of Diabetes Mellitus. PERFORMED BY: [facility] [address] [place] [address] PATHOLOGIST CREDIT BALANCE SPECIALIST ANDRE PERALTA M.D. Performed By: #### G LULS #### Point of Care testing , Glucose [Mass/Vol] 87 mg/dL Normal [facility] Comment on above: Result Comment: [place] Glucose Reference Range is dependent on time and content of last meal. Glucose of more than 200 mg/dL in a nonstressed, ambulatory subject supports the diagnosis of Diabetes Mellitus. PERFORMED BY: [place] [address] PATHOLOGIST CREDIT BALANCE SPECIALIST ANDRE PERALTA M.D. Performed By: #### G LULS #### Point of Care testing , Glucose [Mass/Vol] 100 mg/dL Normal [facility] Comment on above: Result Comment: [facility] Glucose Reference Range is dependent on time and content of last meal. Glucose of more than 200 mg/dL in a nonstressed, ambulatory subject supports the diagnosis of Diabetes Mellitus. PERFORMED BY: [address] [place] [id number] PATHOLOGIST CREDIT BALANCE SPECIALIST ANDRE PERALTA M.D. Performed By: #### G LULS #### Point of Care testing , Commemt1 Normal [facility] Comment on above: Result Comment: Glu2 : Result Not Confirmed PERFORMED BY: [address] [place] [id number] PATHOLOGIST CREDIT BALANCE SPECIALIST ANDRE PERALTA M.D. Performed By: #### G LULS ####Point of Care testing, Glucose [Mass/Vol] 55 mg/dL Off scale low [facility] Comment on above: Result Comment: [facility] [...] in Platelet poor plasma by Coagulation assay [facility] Comment on above: INR Therapeutic Rang e [...] on 05-24-2024 Bedside Glucose Comment See comment [facility] Comment on above: Glu2: Result Not Con firmed Prothrombin time (PT)Ordered By: Mikel Root on 05-24-2024 PT Coag (PPP) [Time] Prothrombin time (PT) 9.0- 12.9 [facility] Comment on above: A hematocrit value g reater than 55% may lead to inaccurate results in coagulation testing. Patients having hematocrit values >55% require a special collection tube for coagulation studies. Please contact the laboratory at [phone] for redraw instructions. aPTT in Platelet poor plasma by Coagulation assayOrdered By: Mikel Root on 05-24-2024 aPTT Coag (PPP) [Time] Activated partial thromboplastin time (aPTT) in platelet poor plasma by coagulation a 25.1-36.5 [facility] Comment on above: A hematocrit value g reater than 55% may lead to inaccurate results in coagulation testing. Patients having hematocrit values >55% require a special collection tube for coagulation studies. Please contact the laboratory at [phone] for redraw instructions. Acanthocytes [Presence] in B lood by Light microscopyOrdered By: Mikel Root on 05-16-2024 Acanthocytes LM Ql (Bld) Slight [facility] Acanthocytes LM Ql (Bld) Acanthocytes [Presence] in Blood by Light microscopy [facility] Anisocytosis LM Ql (Bld)Orde red By: Mikel Root on 05-16-2024 Anisocytosis Ql (Bld) Anisocytosis [Pres ence] in Blood by Light microscopy [facility] Anisocytosis [Presence] in B lood by Light microscopyOrdered By: Mikel Root on 05-16-2024 Anisocytosis Ql (Bld) Slight Normal [facility] Comment on above: Performed By: #### B MP, DIFF CBC ####[facility] [id number] Basic Metabolic Panelon GFR/1.73 sq M.predicted MDRD (S/P/Bld) [Vol rate/Area] mL/min/{1.73_m2} Normal [facility] Comment on above: Performed By: #### B MP, DIFF CBC ####[facility] [id number] [address] Basophils Auto (Bld) [#/Vol] Ordered By: Mikel Root on 05-16-2024 Basophils (Bld) [#/Vol] N/A [facility] Basophils (Bld) [#/Vol] Automated basophil count [facility] Basophils/100 WBC Auto (Bld) Ordered By: Mikel Root on 05-16-2024 Basophils/100 WBC (Bld) N/A [facility] Basophils/100 WBC (Bld) Automated basophil % [facility] Basophils/100 WBC Manual cnt (Bld)Ordered By: Mikel Root on 05-16-2024 Basophils/100 WBC (Bld) Basophils/100 leukocytes in Blood by Manual count 0-2 [facility] Basophils/100 leukocytes in Blood by Manual countOrdered By: Mikel Root on 05-16-2024 Basophils/100 WBC (Bld) 1 % Normal 0-2 [facility] Comment on above: Performed By: #### B MP, DIFF CBC ####[facility] [id number] [address] Calcium [Mass/volume] in Ser um or PlasmaOrdered By: Mikel Root on 05-16-2024 Calcium [Mass/Vol] 8.7 mg/dL Normal 8.6-10.3 [facility] Comment on above: Result Comment: PERF ORMED BY: [facility] [address] [place] [place] [place] [id number] PATHOLOGIST CREDIT BALANCE SPECIALIST AIRAM MAST M.D. Performed By: #### B MP, DIFF CBC ####[facility] [id number] [place] [address] [facility] Calcium [Mass/Vol] Calcium [Mass/volume ] in Serum or Plasma 8.6-10.3 [facility] Carbon dioxide, total [Moles /volume] in Serum or PlasmaOrdered By: Mikel Root on 05-16-2024 CO2 [Moles/Vol] 26.6 mmol/L Normal 21.0-31.0 [facility] Comment on above: Performed By: #### B MP, DIFF CBC ####[place] [id number] [facility] CO2 [Moles/Vol] Carbon dioxide, tota l [Moles/volume] in Serum or Plasma 21.0-31.0 [facility] Chloride [Moles/volume] in S jihan or PlasmaOrdered By: Mikel Root on 05-16-2024 Chloride [Moles/Vol] 95 mmol/L Low 98-107 [facility] Comment on above: Performed By: #### B MP, DIFF CBC ####[address] [address] [place] Chloride [Moles/Vol] Chloride [Moles/vol ume] in Serum or Plasma Low 98-107 [facility] Creatinine [Mass/volume] in Serum or PlasmaOrdered By: Mikel Root on 05-16-2024 Creatinine [Mass/Vol] 1.06 mg/dL Normal 0.70-1.30 [facility] Comment on above: Performed By: #### B MP, DIFF CBC ####[address] [address] [facility] Creatinine [Mass/Vol] Creatinine [Mass/v olume] in Serum or Plasma 0.70-1.30 [facility] Diff and CBCon 05-16-2024 Acanthocytes Slight Normal [facility] Comment on above: Performed By: #### B MP, DIFF CBC ####[address] [address] [facility] Hypochromasia Marked Normal [facility] Comment on above: Performed By: #### B MP, DIFF CBC ####[address] [address] [facility] Mean Corpuscular HGB Conc 32.2 g/dL Low 32.5-35.6 [facility] Comment on above: Performed By: #### B MP, DIFF CBC ####[address] [address] [facility] Microcytosis Slight Normal [facility] Comment on above: Performed By: #### B MP, DIFF CBC ####[address] [address] [facility] Platelet Estimate Normal Normal Normal [facility] Comment on above: Performed By: #### B MP, DIFF CBC ####[address] [address] [facility] Platelet Morphology Normal Normal Normal [facility] Comment on above: Result Comment: PERF ORMED BY: [facility] [address] [place] [id number] PATHOLOGIST CREDIT BALANCE SPECIALIST AIRAM MAST M.D. Performed By: #### B MP, DIFF CBC ####[address] [address] [facility] Poikilocytosis Moderate Normal [facility] Comment on above: Performed By: #### B MP, DIFF CBC ####[address] [address] [facility] Polychromasia Slight Normal [facility] Comment on above: Performed By: #### B MP, DIFF CBC ####[address] [address] [facility] Schistocytes Slight Normal [facility] Comment on above: Performed By: #### B MP, DIFF CBC ####[address] [place] [address] [place] Target Cells Slight Normal [facility] Comment on above: Performed By: #### B MP, DIFF CBC ####[address] ECG 12 lead ECGon 05-16-2024 ECG 12 lead ECG [facility] Main [place] [address] [place] [address] Electrocardiograph Report Signed Patient: Manolo Vickers MR#: [id number] : 1935 Acct:[id number] Age/Sex: 89 / M ADM Date: 05/16/24 Loc: Room: [facility] Attending Dr: Abdulaziz Root MD Ordering [...] changes have occurred Confirmed by CONRAD OGLESBY [facility], HARSH ([id number]) on 05/16/2024 2:20:20 PM Referred By: Electronically Signed By: HARSH MARTINES MD [facility] Transcribed By: MUS Signed By Harsh Martines MD, FACC 05/16/24 1420 Normal [facility] Eosinophils Auto (Bld) [#/Vo l]Ordered By: Mikel Root on 05-16-2024 Eosinophils (Bld) [#/Vol] N/A [facility] Eosinophils (Bld) [#/Vol] Automated eosinophil count [facility] Eosinophils/100 WBC Auto (Bl d)Ordered By: Mikel Root on 05-16-2024 Eosinophils/100 WBC (Bld) N/A [facility] Eosinophils/100 WBC (Bld) Automated eosinophil % [facility] Eosinophils/100 WBC Manual c nt (Bld)Ordered By: Mikel Root on 05-16-2024 Eosinophils/100 WBC (Bld) Eosinophils/100 leukocytes in Blood by Manual count 1-3 [facility] Eosinophils/100 leukocytes i n Blood by Manual countOrdered By: Mikel Root on 05-16-2024 Eosinophils/100 WBC (Bld) 2 % Normal 1-3 [facility] Comment on above: Performed By: #### B MP, DIFF CBC ####[facility] [id number] [address] Erythrocyte distribution wid th Auto (RBC) [Ratio]Ordered By: Mikel Root on 05-16-2024 Erythrocyte distribution width (RBC) [Ratio] Erythrocyte distribution width [Ratio] by Automated count High 12.0-14.8 [facility] Erythrocyte distribution wid th [Ratio] by Automated countOrdered By: Mikel Root on 05-16-2024 Erythrocyte distribution width (RBC) [Ratio] 21.2 % High 12.0-14.8 [facility] Comment on above: Performed By: #### B MP, DIFF CBC ####[facility] [id number] [address] Erythrocyte morphology findi ng [Identifier] in BloodOrdered By: Mikel Root on 05-16-2024 RBC morphology finding Nom (Bld) RBC morphology [facility] Erythrocytes [#/volume] in B lood by Automated countOrdered By: Mikel Root on 05-16-2024 RBC (Bld) [#/Vol] 4.81 10*6/uL Normal 3.90-5.60 [facility] Comment on above: Performed By: #### B MP, DIFF CBC ####[facility] [id number] [address] Glucose [Mass/volume] in Ser um or PlasmaOrdered [...] back by: DREW BUITRAGO at: 05/16/2024 13:51 by:RG Random Glucose Reference Range is dependent on time and content of last meal. Glucose of more than 200 mg/dL in a nonstressed, ambulatory subject supports the diagnosis of Diabetes Mellitus. ADA recommended reference range Performed By: #### B MP, DIFF CBC ####[place] [id number] [place] [id number] [facility] Glucose [Mass/Vol] Glucose [Mass/volume ] in Serum or Plasma Critically high 70-100 [facility] Comment on above: Critical Result Call ed to and read back by: DREW BUITRAGO at: 05/16/2024 13:51 by:RGADA recommended reference rangeRandom Glucose Reference Range is dependent on time and content of last meal. Glucose of more than 200 mg/dL in a nonstressed, ambulatory subject supports the diagnosis of Diabetes Mellitus. Hematocrit Auto (Bld) [Volum e fraction]Ordered By: Mikel Root on 05-16-2024 Hematocrit (Bld) [Volume fraction] Hematocrit [Volume Fraction] of Blood by Automated count Low 38.8-50.0 [facility] Hematocrit [Volume Fraction] of Blood by Automated countOrdered By: Mikel Root on 05-16-2024 Hematocrit (Bld) [Volume fraction] 38.1 % Low 38.8-50.0 [facility] Comment on above: Performed By: #### B MP, DIFF CBC ####[facility] [place] [address] [facility] Hemoglobin [Mass/volume] in BloodOrdered By: Mikel Root on 05-16-2024 Hemoglobin (Bld) [Mass/Vol] 12.3 g/dL Low 13.0-17.0 [facility] Comment on above: Performed By: #### B MP, DIFF CBC ####[facility] [id number] [place] [id number] [facility] Hemoglobin (Bld) [Mass/Vol] Hemoglobin [Mass/volume] in Blood Low 13.0-17.0 [facility] Hypochromia LM Ql (Bld)Order ed By: Mikel Root on 05-16-2024 Hypochromia Ql (Bld) Marked [facility] Hypochromia Ql (Bld) Hypochromia [Presen ce] in Blood by Light microscopy [facility] Leukocytes [#/volume] correc robert for nucleated erythrocytes in Blood by Automated counOrdered By: Mikel Root on 05-16-2024 WBC corrected for nucl RBC Auto (Bld) [#/Vol] 5.0 10*3/uL 4.1-10.5 [facility] WBC corrected for nucl RBC Auto (Bld) [#/Vol] Leukocytes [#/volume] corrected for nucleated erythrocytes in Blood by Automated coun 4.1-10.5 [facility] Leukocytes [#/volume] in Blo od by Automated countOrdered By: Mikel Root on 05-16-2024 WBC (Bld) [#/Vol] 5.0 10*3/uL Normal 4.1-10.5 [facility] Comment on above: Performed By: #### B MP, DIFF CBC ####[facility] [id number] [place] [address] [facility] Lymphocytes Auto (Bld) [#/Vo l]Ordered By: Mikel Root on 05-16-2024 Lymphocytes (Bld) [#/Vol] N/A [facility] Lymphocytes (Bld) [#/Vol] Lymphocytes [#/volume] in Blood by Automated count [facility] Lymphocytes/100 WBC Auto (Bl d)Ordered By: Mikel Root on 05-16-2024 Lymphocytes/100 WBC (Bld) N/A [facility] Lymphocytes/100 WBC (Bld) Lymphocytes/100 leukocytes in Blood by Automated count [facility] Lymphocytes/100 WBC Manual c nt (Bld)Ordered By: Mikel Root on 05-16-2024 Lymphocytes/100 WBC (Bld) Lymphocytes/100 leukocytes in Blood by Manual count [facility] Lymphocytes/100 leukocytes i n Blood by Manual countOrdered By: Mikel Root on 05-16-2024 Lymphocytes/100 WBC (Bld) 23 % Normal [facility] Comment on above: Performed By: #### B MP, DIFF CBC ####[facility] [id number] [address] MCH Auto (RBC) [Entitic mass ]Ordered By: Mikel Root on 05-16-2024 MCH (RBC) [Entitic mass] MCH [Entitic mass] by Automated count Low 27.5-35.2 [facility] MCH [Entitic mass] by Automa robert countOrdered By: Mikel Root on 05-16-2024 MCH (RBC) [Entitic mass] 25.5 pg Low 27.5-35.2 [facility] Comment on above: Performed By: #### B MP, DIFF CBC ####[facility] [id number] [place] [address] MCHC Auto (RBC) [Mass/Vol]Or dered By: Mikel Root on 05-16-2024 MCHC (RBC) [Mass/Vol] 32.2 g/dL Low 32.5-35.6 [facility] MCHC (RBC) [Mass/Vol] MCHC [Mass/volume] by Automated count Low 32.5-35.6 [facility] MCV Auto (RBC) [Entitic vol] Ordered By: Mikel Root on 05-16-2024 MCV (RBC) [Entitic vol] MCV [Entitic volume] by Automated count Low 83.5-101 [facility] MCV [Entitic volume] by Auto mated countOrdered By: Mikel Root on 05-16-2024 MCV (RBC) [Entitic vol] 79.2 fL Low 83.5-101 [facility] Comment on above: Performed By: #### B MP, DIFF CBC ####[facility] [id number] [address] Manual blood segmented neutr ophils/100 leukocytesOrdered By: Mikel Root on 05-16-2024 Segmented neutrophils/100 WBC (Bld) 67 % Normal 50-70 [facility] Comment on above: Performed By: #### B MP, DIFF CBC ####[facility] [id number] [address] Microcytes LM Ql (Bld)Ordere d By: Mikel Root on 05-16-2024 Microcytes Ql (Bld) Slight [facility] Microcytes Ql (Bld) Microcytes [Presence ] in Blood by Light microscopy [facility] Monocytes Auto (Bld) [#/Vol] Ordered By: Mikel Root on 05-16-2024 Monocytes (Bld) [#/Vol] N/A [facility] Monocytes (Bld) [#/Vol] Automated blood monocyte count [facility] Monocytes/100 WBC Auto (Bld) Ordered By: Mikel Root on 05-16-2024 Monocytes/100 WBC (Bld) N/A [facility] Monocytes/100 WBC (Bld) Automated monocyte % [facility] Monocytes/100 WBC Manual cnt (Bld)Ordered By: Mikel Root on 05-16-2024 Monocytes/100 WBC (Bld) Monocytes/100 leukocytes in Blood by Manual count 08-22 [facility] Monocytes/100 leukocytes in Blood by Manual countOrdered By: Mikel Root on 05-16-2024 Monocytes/100 WBC (Bld) 8 % Normal 08-22 [facility] Comment on above: Performed By: #### B MP, DIFF CBC ####[facility] [id number] [place] [id number] [facility] Neutrophils Auto (Bld) [#/Vo l]Ordered By: Mikel Root on 05-16-2024 Neutrophils (Bld) [#/Vol] N/A [facility] Neutrophils (Bld) [#/Vol] Neutrophils [#/volume] in Blood by Automated count [facility] Neutrophils/100 WBC Auto (Bl d)Ordered By: Mikel Root on 05-16-2024 Neutrophils/100 WBC (Bld) N/A [facility] Neutrophils/100 WBC (Bld) Automated neutrophil % [facility] No Panel InformationOrdered By: Mikel Root on 05-16-2024 Estimated GFR (CKD-EPI) > 60.0 mL/Min [facility] Creatinine Clearance (Chem N/A [facility] Nucleated erythrocytes [Pres ence] in Blood by Automated countOrdered By: Mikel Root on 05-16-2024 Nucleated RBC Auto Ql (Bld) N/A [facility] Nucleated RBC Auto Ql (Bld) Nucleated erythrocytes [Presence] in Blood by Automated count [facility] Platelet adequacy [Presence] in Blood by Light microscopyOrdered By: Mikel Root on 05-16-2024 Platelets LM Ql (Bld) Normal Normal [facility] Platelets LM Ql (Bld) Platelet adequacy [Presence] in Blood by Light microscopy Normal [facility] Platelet mean volume Auto (B ld) [Entitic vol]Ordered By: Mikel Root on 05-16-2024 Platelet mean volume (Bld) [Entitic vol] Platelet mean volume [Entitic volume] in Blood by Automated count High 6.6-10.1 [facility] Platelet mean volume [Entiti c volume] in Blood by Automated countOrdered By: Mikel Root on 05-16-2024 Platelet mean volume (Bld) [Entitic vol] 11.3 fL High 6.6-10.1 [facility] Comment on above: Result Comment: PERF ORMED BY: [facility] [address] [place] [address] PATHOLOGIST CREDIT BALANCE SPECIALIST AIRAM MAST M.D. Performed By: #### B MP, DIFF CBC ####[facility] [place] [id number] Platelet morphology finding [Identifier] in BloodOrdered By: Mikel Root on 05-16-2024 Platelet morphology finding Nom (Bld) Normal Normal [facility] Platelet morphology finding Nom (Bld) Platelet morphology finding [Identifier] in Blood Normal [facility] Platelets Auto (Bld) [#/Vol] Ordered By: Mikel Root on 05-16-2024 Platelets (Bld) [#/Vol] Platelets [#/volume] in Blood by Automated count 150-450 [facility] Platelets [#/volume] in Bloo d by Automated countOrdered By: Mikel Root on 05-16-2024 Platelets (Bld) [#/Vol] 249 10*3/uL Normal 150-450 [facility] Comment on above: Performed By: #### B MP, DIFF CBC ####[facility] Poikilocytosis [Presence] in Blood by Light microscopyOrdered By: Mikel Root on 05-16-2024 Poikilocytosis LM Ql (Bld) Moderate [facility] Poikilocytosis LM Ql (Bld) Poikilocytosis [Presence] in Blood by Light microscopy [facility] Polychromasia [Presence] in Blood by Light microscopyOrdered By: Mikel Root on 05-16-2024 Polychromasia LM Ql (Bld) Slight [facility] Polychromasia LM Ql (Bld) Polychromasia [Presence] in Blood by Light microscopy [facility] Potassium [Moles/volume] in Serum or PlasmaOrdered By: Mikel Root on 05-16-2024 Potassium [Moles/Vol] 5.4 mmol/L High 3.5-5.1 [facility] Comment on above: Performed By: #### B MP, DIFF CBC ####[facility] [place] [id number] [place] [id number] [facility] Potassium [Moles/Vol] Potassium [Moles/v olume] in Serum or Plasma High 3.5-5.1 [facility] RBC Auto (Bld) [#/Vol]Ordere d By: Mikel Root on 05-16-2024 RBC (Bld) [#/Vol] Erythrocytes [#/volu me] in Blood by Automated count 3.90-5.60 [facility] RBC morphologyOrdered By: Asher Root on 05-16-2024 RBC morphology finding Nom (Bld) N/A [facility] Schistocytes [Presence] in B lood by Light microscopyOrdered By: Mikel Root on 05-16-2024 Schistocytes LM Ql (Bld) Slight [facility] Schistocytes LM Ql (Bld) Schistocytes [Presence] in Blood by Light microscopy [facility] Segmented neutrophils/100 WB C Manual cnt (Bld)Ordered By: Mikel Root on 05-16-2024 Segmented neutrophils/100 WBC (Bld) Manual blood segmented neutrophils/100 leukocytes 50-70 [facility] Serum or plasma anion gap de terminationOrdered By: Mikel Root on 05-16-2024 Anion gap [Moles/Vol] 11.8 mmol/L Normal 6.0-15.0 [facility] Comment on above: Performed By: #### B MP, DIFF CBC ####[facility] [place] [id number] [place] [id number] [facility] Anion gap [Moles/Vol] Serum or plasma an ion gap determination 6.0-15.0 [facility] Sodium [Moles/volume] in Ser um or PlasmaOrdered By: Mikel Root on 05-16-2024 Sodium [Moles/Vol] 128 mmol/L Low 136-145 [facility] Comment on above: Performed By: #### B MP, DIFF CBC ####[facility] [place] [address] [facility] Sodium [Moles/Vol] Sodium [Moles/volume ] in Serum or Plasma Low 136-145 [facility] Target cellsOrdered By: Mikel Root on 05-16-2024 Target cells LM Ql (Bld) Slight [facility] Target cells [Presence] in B lood by Light microscopyOrdered By: Mikel Root on 05-16-2024 Target cells LM Ql (Bld) Target cells [facility] Urea nitrogen [Mass/volume] in Serum or PlasmaOrdered By: Mikel Root on 05-16-2024 Urea nitrogen [Mass/Vol] 21 mg/dL Normal 02-02 [facility] Comment on above: Performed By: #### B MP, DIFF CBC ####[facility] [place] [address] [facility] Urea nitrogen [Mass/Vol] Urea nitrogen [Mass/volume] in Serum or Plasma 02-02 [facility] WBC Auto (Bld) [#/Vol]Ordere d By: Mikel Root on 05-16-2024 WBC (Bld) [#/Vol] Leukocytes [#/volume ] in Blood by Automated count 4.1-10.5 [facility] 36on 05-04-[address] Chirag Merritt's recommendation [...] as initially recommended. Best regards, Dr. Carbajal [facility] 36on 04-26-[address] Jesus Alberto Castro's office (Internal Medicine) called to make sure that a message had been received to Dr. Beard regarding this patient and concerns Dr. Castro has regarding the patient having an EGD to confirm resolution of H. Pylori. This medical writer could not find any message in chart or in remedial project manager, so this message was created. The [...] A note will be sent to the high school social science teacher to discuss the possibility of using a stool study instead of a biopsy to avoid disturbing the scarred area. Please advise and respond to Dr. Castro through this telephone call note or via a letter, as to what Dr. Beard's recommendation is regarding the above inquiry. Thank you. [facility] Telephoneon 04-26-2024 Telephone [id number] Giovani Vickers 1935 [facility] Provider [facility] Center 04/26/2024 TIM KEE [facility] No family history on file [facility] HbA1c (Bld) [Mass fraction]o n 04-17-2024 [facility] Laboratory - Hematology and Cell countson 04-17-2024 HbA1c (Bld) [Mass fraction] 9.8 % [facility] Healthcare Office Visiton 04-05-2024 Follow-up visit [id number] Giovani Vickers 1935 Provider Department Center 04/05/2024 Nadeen-PATRICK BEARD MP [facility] No family history on file Level of Service:28450 [place] OFFICE/OUTPATIENT NEW LOW MDM 30 MINUTES (GC) Reason for Visit and Comments: gastrointestinal ulcer [Other] - Pt says he's supposed to receive a procedure. 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 History: HTN, DM, Former Smoker, CAD, [...] 2.7 cm2 MV dec slope: 574.6 cm/sec?? JNUE(V,D): 2.6 cm2 E/E' lat: 11.0 E/E' med: [...] 1444 Signed By: Anat Perez MD 03/09/24 9658 Normal [facility] Erythrocyte distribution wid th Auto (RBC) [Ratio]Ordered By: Warren Gross on 02-16-2024 Erythrocyte distribution width (RBC) [Ratio] 20.0 % High 12.0-14.8 [facility] Ferritin [Mass/volume] in Se rum or PlasmaOrdered By: Anat Perez on 02-16-2024 Ferritin [Mass/Vol] 19.8 ng/mL Low 23.9-336.2 [facility] Hematocrit Auto (Bld) [Volum e fraction]Ordered By: Warren Gross on 02-16-2024 Hematocrit (Bld) [Volume fraction] 26.7 % Low 38.8-50.0 [facility] Hemoglobin [Mass/volume] in BloodOrdered By: Warren Gross on 02-16-2024 Hemoglobin (Bld) [Mass/Vol] 8.8 g/dL Low 13.0-17.0 [facility] Iron [Mass/volume] in Serum or PlasmaOrdered By: Anat Perez on 02-16-2024 Iron [Mass/Vol] 20 ug/dL Low 50-212 [facility] Iron binding capacity [Mass/ volume] in Serum or PlasmaOrdered By: Anat Perez on 02-16-2024 Iron binding capacity [Mass/Vol] 402 ug/dL 255-450 [facility] Iron saturation [Mass Fracti on] in Serum or PlasmaOrdered By: Anat Perez on 02-16-2024 Iron saturation [Mass fraction] 5.0 % Low 20-50 [facility] Leukocytes [#/volume] correc robert for nucleated erythrocytes in Blood by Automated counOrdered By: Warren Gross on 02-16-2024 WBC corrected for nucl RBC Auto (Bld) [#/Vol] 5.8 10*3/uL 4.1-10.5 [facility] MCH Auto (RBC) [Entitic mass ]Ordered By: Warren Gross on 02-16-2024 MCH (RBC) [Entitic mass] 26.8 pg Low 27.5-35.2 [facility] MCHC Auto (RBC) [Mass/Vol]Or dered By: Warren Gross on 02-16-2024 MCHC (RBC) [Mass/Vol] 32.9 g/dL 32.5-35.6 [facility] MCV Auto (RBC) [Entitic vol] Ordered By: Warren Gross on 02-16-2024 MCV (RBC) [Entitic vol] 81.4 fL Low 83.5-101 [facility] Platelet mean volume Auto (B ld) [Entitic vol]Ordered By: Warren Gross on 02-16-2024 Platelet mean volume (Bld) [Entitic vol] 10.3 fL High 6.6-10.1 [facility] Platelets Auto (Bld) [#/Vol] Ordered By: Warren Gross on 02-16-2024 Platelets (Bld) [#/Vol] 304 10*3/uL 150-450 [facility] RBC Auto (Bld) [#/Vol]Ordere d By: Warren Gross on 02-16-2024 RBC (Bld) [#/Vol] 3.28 10*6/uL Low 3.90-5.60 [facility] Transferrin [Mass/volume] in Serum or PlasmaOrdered By: Anat Perez on 02-16-2024 Transferrin [Mass/Vol] 287 mg/dL 203-362 [facility] Erythrocyte distribution wid th Auto (RBC) [Ratio]Ordered By: Warren Gross on 02-14-2024 Erythrocyte distribution width (RBC) [Ratio] 19.9 % High 12.0-14.8 [facility] Hematocrit Auto (Bld) [Volum e fraction]Ordered By: Warren Gross on 02-14-2024 Hematocrit (Bld) [Volume fraction] 26.4 % Low 38.8-50.0 [facility] Hemoglobin [Mass/volume] in BloodOrdered By: Warren Gross on 02-14-2024 Hemoglobin (Bld) [Mass/Vol] 8.7 g/dL Low 13.0-17.0 [facility] Leukocytes [#/volume] correc robert for nucleated erythrocytes in Blood by Automated counOrdered By: Warren Gross on 02-14-2024 WBC corrected for nucl RBC Auto (Bld) [#/Vol] 7.1 10*3/uL 4.1-10.5 [facility] MCH Auto (RBC) [Entitic mass ]Ordered By: Warren Gross on 02-14-2024 MCH (RBC) [Entitic mass] 26.8 pg Low 27.5-35.2 [facility] MCHC Auto (RBC) [Mass/Vol]Or dered By: Warren Gross on 02-14-2024 MCHC (RBC) [Mass/Vol] 32.9 g/dL 32.5-35.6 [facility] MCV Auto (RBC) [Entitic vol] Ordered By: Warren Gross on 02-14-2024 MCV (RBC) [Entitic vol] 81.6 fL Low 83.5-101 [facility] Platelet mean volume Auto (B ld) [Entitic vol]Ordered By: Warren Gross on 02-14-2024 Platelet mean volume (Bld) [Entitic vol] 9.6 fL 6.6-10.1 [facility] Platelets Auto (Bld) [#/Vol] Ordered By: Warren Gross on 02-14-2024 Platelets (Bld) [#/Vol] 278 10*3/uL 150-450 [facility] RBC Auto (Bld) [#/Vol]Ordere d By: Warren Gross on 02-14-2024 RBC (Bld) [#/Vol] 3.23 10*6/uL Low 3.90-5.60 [facility] Erythrocyte distribution wid th Auto (RBC) [Ratio]Ordered By: Warren Gross on 02-11-2024 Erythrocyte distribution width (RBC) [Ratio] 20.4 % High 12.0-14.8 [facility] Hematocrit Auto (Bld) [Volum e fraction]Ordered By: Warren Gross on 02-11-2024 Hematocrit (Bld) [Volume fraction] 26.8 % Low 38.8-50.0 [facility] Hemoglobin [Mass/volume] in BloodOrdered By: Warren Gross on 02-11-2024 Hemoglobin (Bld) [Mass/Vol] 8.8 g/dL Low 13.0-17.0 [facility] Leukocytes [#/volume] correc robert for nucleated erythrocytes in Blood by Automated counOrdered By: Warren Gross on 02-11-2024 WBC corrected for nucl RBC Auto (Bld) [#/Vol] 6.4 10*3/uL 4.1-10.5 [facility] MCH Auto (RBC) [Entitic mass ]Ordered By: Warren Gross on 02-11-2024 MCH (RBC) [Entitic mass] 26.8 pg Low 27.5-35.2 [facility] MCHC Auto (RBC) [Mass/Vol]Or dered By: Warren Gross on 02-11-2024 MCHC (RBC) [Mass/Vol] 32.8 g/dL 32.5-35.6 [facility] MCV Auto (RBC) [Entitic vol] Ordered By: Warren Gross on 02-11-2024 MCV (RBC) [Entitic vol] 81.9 fL Low 83.5-101 [facility] Platelet mean volume Auto (B ld) [Entitic vol]Ordered By: Warren Gross on 02-11-2024 Platelet mean volume (Bld) [Entitic vol] 10.2 fL High 6.6-10.1 [facility] Platelets Auto (Bld) [#/Vol] Ordered By: Warren Gross on 02-11-2024 Platelets (Bld) [#/Vol] 228 10*3/uL 150-450 [facility] RBC Auto (Bld) [#/Vol]Ordere d By: Warren Gross on 02-11-2024 RBC (Bld) [#/Vol] 3.27 10*6/uL Low 3.90-5.60 [facility] Basophils Auto (Bld) [#/Vol] Ordered By: Sushant Cordon on 02-08-2024 Basophils (Bld) [#/Vol] 0.1 10*3/uL 0.0-0.2 [facility] Basophils/100 WBC Auto (Bld) Ordered By: Sushant Cordon on 02-08-2024 Basophils/100 WBC (Bld) 1.3 % . [facility] Calcium [Mass/volume] in Ser um or PlasmaOrdered By: Sushant Cordon on 02-08-2024 Calcium [Mass/Vol] 8.1 mg/dL Low 8.6-10.3 [facility] Carbon dioxide, total [Moles /volume] in Serum or PlasmaOrdered By: Sushant Cordon on 02-08-2024 CO2 [Moles/Vol] 29.6 mmol/L 21.0-31.0 [facility] Chloride [Moles/volume] in S jihan or PlasmaOrdered By: Sushant Cordon on 02-08-2024 Chloride [Moles/Vol] 102 mmol/L 98-107 [facility] Creatinine [Mass/volume] in Serum or PlasmaOrdered By: Sushant Cordon on 02-08-2024 Creatinine [Mass/Vol] 0.82 mg/dL 0.70-1.30 [facility] Eosinophils Auto (Bld) [#/Vo l]Ordered By: Sushant Cordon on 02-08-2024 Eosinophils (Bld) [#/Vol] 0.4 10*3/uL 0.0-0.45 [facility] Eosinophils/100 WBC Auto (Bl d)Ordered By: Sushant Cordon on 02-08-2024 Eosinophils/100 WBC (Bld) 7.1 % . [facility] Erythrocyte distribution wid th Auto (RBC) [Ratio]Ordered By: Sushant Cordon on 02-08-2024 Erythrocyte distribution width (RBC) [Ratio] 19.3 % High 12.0-14.8 [facility] Glucose Glucometer (BldC) [M ass/Vol]Ordered By: Warren Gross on 02-08-2024 Glucose [Mass/Vol] 382 mg/dL [facility] Comment on above: Random Glucose Refer ence Range is dependent on time and content of last meal. Glucose of more than 200 mg/dL in a nonstressed, ambulatory subject supports the diagnosis of Diabetes Mellitus. Glucose [Mass/volume] in Ser um or PlasmaOrdered By: Sushant Cordon on 02-08-2024 Glucose [Mass/Vol] 320 mg/dL High 70-100 [facility] Comment on above: Delta: 171 on -620ADA recommended reference rangeRandom Glucose Reference Range is dependent on time and content of last meal. Glucose of more than 200 mg/dL in a nonstressed, ambulatory subject supports the diagnosis of Diabetes Mellitus. Hematocrit Auto (Bld) [Volum e fraction]Ordered By: Sushant Cordon on 02-08-2024 Hematocrit (Bld) [Volume fraction] 25.8 % Low 38.8-50.0 [facility] Hemoglobin [Mass/volume] in BloodOrdered By: Sushant Cordon on 02-08-2024 Hemoglobin (Bld) [Mass/Vol] 8.8 g/dL Low 13.0-17.0 [facility] Leukocytes [#/volume] correc robert for nucleated erythrocytes in Blood by Automated counOrdered By: Sushant Cordon on 02-08-2024 WBC corrected for nucl RBC Auto (Bld) [#/Vol] 5.7 10*3/uL 4.1-10.5 [facility] Lymphocytes Auto (Bld) [#/Vo l]Ordered By: Sushant Cordon on 02-08-2024 Lymphocytes (Bld) [#/Vol] 1.3 10*3/uL 1.00-4.8 [facility] Lymphocytes/100 WBC Auto (Bl d)Ordered By: Sushant Cordon on 02-08-2024 Lymphocytes/100 WBC (Bld) 22.3 % . [facility] MCH Auto (RBC) [Entitic mass ]Ordered By: Sushant Cordon on 02-08-2024 MCH (RBC) [Entitic mass] 27.1 pg Low 27.5-35.2 [facility] MCHC Auto (RBC) [Mass/Vol]Or dered By: Sushant Cordon on 02-08-2024 MCHC (RBC) [Mass/Vol] 33.9 g/dL 32.5-35.6 [facility] MCV Auto (RBC) [Entitic vol] Ordered By: Sushant Cordon on 02-08-2024 MCV (RBC) [Entitic vol] 79.9 fL Low 83.5-101 [facility] Magnesium [Mass/volume] in S jihan or PlasmaOrdered By: Sushant Cordon on 02-08-2024 Magnesium [Mass/Vol] 1.8 mg/dL Low 1.9-2.7 [facility] Monocytes Auto (Bld) [#/Vol] Ordered By: Sushant Cordon on 02-08-2024 Monocytes (Bld) [#/Vol] 1.0 10*3/uL High 0.0-0.8 [facility] Monocytes/100 WBC Auto (Bld) Ordered By: Sushant Cordon on 02-08-2024 Monocytes/100 WBC (Bld) 17.6 % . [facility] Neutrophils Auto (Bld) [#/Vo l]Ordered By: Sushant Cordon on 02-08-2024 Neutrophils (Bld) [#/Vol] 3.0 10*3/uL 1.8-7.7 [facility] Neutrophils/100 WBC Auto (Bl d)Ordered By: Sushant Cordon on 02-08-2024 Neutrophils/100 WBC (Bld) 51.7 % . [facility] No Panel InformationOrdered By: Sushant Cordon on 02-08-2024 Estimated GFR (CKD-EPI) > 60.0 mL/Min [facility] Creatinine Clearance (Chem 58.45 [facility] Nucleated erythrocytes [Pres ence] in Blood by Automated countOrdered By: Sushant Cordon on 02-08-2024 Nucleated RBC Auto Ql (Bld) 0.2 /100{WBC} 0-0.5 [facility] Platelet mean volume Auto (B ld) [Entitic vol]Ordered By: Sushant Cordon on 02-08-2024 Platelet mean volume (Bld) [Entitic vol] 11.2 fL High 6.6-10.1 [facility] Platelets Auto (Bld) [#/Vol] Ordered By: Sushant Cordon on 02-08-2024 Platelets (Bld) [#/Vol] 180 10*3/uL 150-450 [facility] Potassium [Moles/volume] in Serum or PlasmaOrdered By: Sushant Cordon on 02-08-2024 Potassium [Moles/Vol] 4.4 mmol/L 3.5-5.1 [facility] RBC Auto (Bld) [#/Vol]Ordere d By: Sushant Cordon on 02-08-2024 RBC (Bld) [#/Vol] 3.23 10*6/uL Low 3.90-5.60 [facility] Serum or plasma anion gap de terminationOrdered By: Sushant Cordon on 02-08-2024 Anion gap [Moles/Vol] 7.8 mmol/L 6.0-15.0 [facility] Sodium [Moles/volume] in Ser um or PlasmaOrdered By: Sushant Cordon on 02-08-2024 Sodium [Moles/Vol] 135 mmol/L Low 136-145 [facility] Urea nitrogen [Mass/volume] in Serum or PlasmaOrdered By: Sushant Cordon on 02-08-2024 Urea nitrogen [Mass/Vol] 24 mg/dL 7-25 [facility] WBC Auto (Bld) [#/Vol]Ordere d By: Sushant Cordon on 02-08-2024 WBC (Bld) [#/Vol] 5.7 10*3/uL 4.1-10.5 [facility] No Panel InformationOrdered By: Warren Gross on 02-07-2024 Bedside Glucose #[address]/rn [facility] Bedside Glucose Comment See comment [facility] Comment on above: Glu2: Will Repeat Te st Alanine aminotransferase [En zymatic activity/volume] in Serum or PlasmaOrdered By: Sushant Cordon on 02-06-2024 ALT [Catalytic activity/Vol] 12 U/L 7-52 [facility] Albumin [Mass/volume] in Ser um or Plasma by Bromocresol green (BCG) dye binding methoOrdered By: Sushant Cordon on 02-06-2024 Albumin BCG dye [Mass/Vol] 3.2 g/dL Low 3.5-5.7 [facility] Alkaline phosphatase [Enzyma tic activity/volume] in Serum or PlasmaOrdered By: Sushant Cordon on 02-06-2024 ALP [Catalytic activity/Vol] 94 U/L 34-104 [facility] Aspartate aminotransferase [ Enzymatic activity/volume] in Serum or PlasmaOrdered By: Sushant Cordon on 02-06-2024 AST [Catalytic activity/Vol] 15 U/L 13-39 [facility] Bilirubin.direct [Mass/volum e] in Serum or PlasmaOrdered By: Sushant Cordon on 02-06-2024 Bilirubin.direct [Mass/Vol] 0.20 mg/dL High 0.03-0.18 [facility] Bilirubin.total [Mass/volume ] in Serum or PlasmaOrdered By: Sushant Cordon on 02-06-2024 Bilirubin [Mass/Vol] 1.2 mg/dL High 0.3-1.0 [facility] Globulin Calc (S) [Mass/Vol] Ordered By: Sushant Cordon on 02-06-2024 Globulin (S) [Mass/Vol] 2.0 g/dL [facility] Glucose mean value [Mass/vol ume] in Blood Estimated from glycated hemoglobinOrdered By: Sushant Cordon on 02-06-2024 Average glucose Estimated from glycated hemoglobin (Bld) [Mass/Vol] 194 mg/dL [facility] Hemoglobin A1c percentageOrd ered By: Sushant Cordon on 02-06-2024 HbA1c (Bld) [Mass fraction] 8.4 % High 4.3-5.6 [facility] Comment on above: Increased risk for d iabetes: 5.7 - 6.4diabetes: >6.4glycemic control for adults with diabetes: <7.0 No Panel InformationOrdered By: Nayeli Jimenez on 02-06-2024 Bedside Glucose #3 Comment Follow hypoglycemic [facility] Protein [Mass/volume] in Ser um or PlasmaOrdered By: Sushant Cordon on 02-06-2024 Protein [Mass/Vol] 5.2 g/dL Low 6.4-8.9 [facility] Serum or plasma albumin/glob ulin mass ratioOrdered By: Sushant Cordon on 02-06-2024 Albumin/Globulin [Mass ratio] 1.6 {ratio} [facility] Serum or plasma non-glucuron idated bilirubin measurement (mass/volume)Ordered By: Sushant Cordon on 02-06-2024 Bilirubin.indirect [Mass/Vol] 1.0 mg/dL [facility] Troponin I.cardiac [Mass/vol ume] in Serum or Plasma by Detection limit <= 0.01 ng/Ordered By: Sushant Cordon on 02-06-2024 Troponin I.cardiac DL <= 0.01 ng/mL [Mass/Vol] 60.3 pg/mL High 0.0-20.0 [facility] Comment on above: Critical Result : Ca lled to and read back by: PRAKASH BRICENO at: 02/06/2024 09:42:22 by:CYNTHIA Vitamin D+Metabolites [Mass/ volume] in Serum or PlasmaOrdered By: Sushant Cordon on 02-06-2024 Vitamin D+Metabolites [Mass/Vol] 25.0 ng/mL Low 30-100 [facility] Comment on above: VITAMIN D STATUS 25( [place])VITAMIN D RANGE (ng/mL) Deficient <20 Insufficient 20 to <30Sufficient 30 to 100Reference: Batsheva MF,Arcadio NC, Ramy MCGEE, et al. Evaluation,treatment, and prevention of vitamin D deficiency; an Endocrine Society clinical practice guideline. JCEM. 2010; 96(7):1911-30. Acanthocytes [Presence] in B lood by Light microscopyOrdered By: Paige Luther on 02-05-2024 Acanthocytes LM Ql (Bld) Slight [facility] Activated partial thrombopla stin time (aPTT) in [...] coagulation studies. Please contact the laboratory at [phone] for redraw instructions. Alanine aminotransferase [En zymatic activity/volume] in Serum or PlasmaOrdered By: Paige Luther on 02-05-2024 ALT [Catalytic activity/Vol] 15 U/L 7-52 [facility] Albumin [Mass/volume] in Ser um or Plasma by Bromocresol green (BCG) dye binding methoOrdered By: Paige Luther on 02-05-2024 Albumin BCG dye [Mass/Vol] 3.3 g/dL Low 3.5-5.7 [facility] Alkaline phosphatase [Enzyma tic activity/volume] in Serum or PlasmaOrdered By: Paige Luther on 02-05-2024 ALP [Catalytic activity/Vol] 104 U/L 34-104 [facility] Anisocytosis LM Ql (Bld)Orde red By: Paige Luther on 02-05-2024 Anisocytosis Ql (Bld) Moderate [facility] Aspartate aminotransferase [ Enzymatic activity/volume] in Serum or PlasmaOrdered By: Paige Luther on 02-05-2024 AST [Catalytic activity/Vol] 15 U/L 13-39 [facility] Basophils Auto (Bld) [#/Vol] Ordered By: Paige Luther on 02-05-2024 Basophils (Bld) [#/Vol] 0.0 10*3/uL 0.0-0.2 [facility] Basophils/100 WBC Auto (Bld) Ordered By: Paige Luther on 02-05-2024 Basophils/100 WBC (Bld) 0.4 % . [facility] Bilirubin.direct [Mass/volum e] in Serum or PlasmaOrdered By: Paige Luther on 02-05-2024 Bilirubin.direct [Mass/Vol] 0.10 mg/dL 0.03-0.18 [facility] Bilirubin.total [Mass/volume ] in Serum or PlasmaOrdered By: Paige Luther on 02-05-2024 Bilirubin [Mass/Vol] 0.5 mg/dL 0.3-1.0 [facility] Montgomery cells [Presence] in Blo od by Light microscopyOrdered By: Paige Luther on 02-05-2024 Geo cells LM Ql (Bld) Slight [facility] [facility] Calcium [Mass/volume] in Ser um or PlasmaOrdered By: Paige Luther on 02-05-2024 Calcium [Mass/Vol] 8.6 mg/dL 8.6-10.3 [facility] Carbon dioxide, total [Moles /volume] in Serum or PlasmaOrdered By: Paige Luther on 02-05-2024 CO2 [Moles/Vol] 23.1 mmol/L 21.0-31.0 [facility] Chloride [Moles/volume] in S jihan or PlasmaOrdered By: Paige Luther on 02-05-2024 Chloride [Moles/Vol] 103 mmol/L 98-107 [facility] Creatine kinase [Enzymatic a ctivity/volume] in Serum or PlasmaOrdered By: Paige Luther on 02-05-2024 CK [Catalytic activity/Vol] 114 U/L 30-223 [facility] Creatinine [Mass/volume] in Serum or PlasmaOrdered By: Paige Luther on 02-05-2024 Creatinine [Mass/Vol] 1.09 mg/dL 0.70-1.30 [facility] Eosinophils Auto (Bld) [#/Vo l]Ordered By: Paige Luther on 02-05-2024 Eosinophils (Bld) [#/Vol] 0.0 10*3/uL 0.0-0.45 [facility] Eosinophils/100 WBC Auto (Bl d)Ordered By: Paige Luther on 02-05-2024 Eosinophils/100 WBC (Bld) 0.2 % . [facility] Erythrocyte distribution wid th Auto (RBC) [Ratio]Ordered By: Paige Luther on 02-05-2024 Erythrocyte distribution width (RBC) [Ratio] 20.3 % High 12.0-14.8 [facility] Globulin Calc (S) [Mass/Vol] Ordered By: Paige Luther on 02-05-2024 Globulin (S) [Mass/Vol] 2.4 g/dL [facility] Glucose [Mass/volume] in Ser um or PlasmaOrdered By: Paige Luther on 02-05-2024 Glucose [Mass/Vol] 158 mg/dL High 70-100 [facility] Comment on above: ADA recommended refe rence rangeRandom Glucose Reference Range is dependent on time and content of last meal. Glucose of more than 200 mg/dL in a nonstressed, ambulatory subject supports the diagnosis of Diabetes Mellitus. Hematocrit Auto (Bld) [Volum e fraction]Ordered By: Paige Luther on 02-05-2024 Hematocrit (Bld) [Volume fraction] 23.7 % Low 38.8-50.0 [facility] Hemoglobin [Mass/volume] in BloodOrdered By: Paige Luther on 02-05-2024 Hemoglobin (Bld) [Mass/Vol] 7.7 g/dL Low 13.0-17.0 [facility] Hemoglobin.gastrointestinal [Presence] in StoolOrdered By: Paige Luther on 02-05-2024 Hemoglobin.gastrointes tinal Ql (Stl) [facility] Hypochromia LM Ql (Bld)Order ed By: Paige Luther on 02-05-2024 Hypochromia Ql (Bld) Marked [facility] INR in Platelet poor plasma by Coagulation assayOrdered By: Paige Luther on 02-05-2024 INR Coag (PPP) [Relative time] 1.3 {INR} [facility] Comment on above: INR Therapeutic Rang e [...] RBC Auto (Bld) [#/Vol] 9.0 10*3/uL 4.1-10.5 [facility] Lipase [Enzymatic activity/v olume] in Serum or PlasmaOrdered By: Paige Luther on 02-05-2024 Lipase [Catalytic activity/Vol] 5.0 U/L Low 11.0-82.0 [facility] Lymphocytes Auto (Bld) [#/Vo l]Ordered By: Paige Luther on 02-05-2024 Lymphocytes (Bld) [#/Vol] 1.5 10*3/uL 1.00-4.8 [facility] Lymphocytes/100 WBC Auto (Bl d)Ordered By: Paige Luther on 02-05-2024 Lymphocytes/100 WBC (Bld) 16.3 % . [facility] MCH Auto (RBC) [Entitic mass ]Ordered By: Paige Luther on 02-05-2024 MCH (RBC) [Entitic mass] 24.9 pg Low 27.5-35.2 [facility] MCHC Auto (RBC) [Mass/Vol]Or dered By: Paige Luther on 02-05-2024 MCHC (RBC) [Mass/Vol] 32.6 g/dL 32.5-35.6 [facility] MCV Auto (RBC) [Entitic vol] Ordered By: Paige Luther on 02-05-2024 MCV (RBC) [Entitic vol] 76.3 fL Low 83.5-101 [facility] Macrocytes LM Ql (Bld)Ordere d By: Paige Luther on 02-05-2024 Macrocytes Ql (Bld) Slight [facility] Microcytes LM Ql (Bld)Ordere d By: Paige Luther on 02-05-2024 Microcytes Ql (Bld) Slight [facility] Monocyte distribution width [Entitic volume] in Blood by AutomatedOrdered By: Paige Luther on 02-05-2024 Monocyte distribution width Auto (Bld) [Entitic vol] 17.22 % 0.00-20.00 [facility] Monocytes Auto (Bld) [#/Vol] Ordered By: Paige Luther on 02-05-2024 Monocytes (Bld) [#/Vol] 0.4 10*3/uL 0.0-0.8 [facility] Monocytes/100 WBC Auto (Bld) Ordered By: Paige Luther on 02-05-2024 Monocytes/100 WBC (Bld) 4.8 % . [facility] Natriuretic peptide B [Mass/ Vol]Ordered By: Paige Luther on 02-05-2024 Natriuretic peptide B (Bld) [Mass/Vol] 399.0 pg/mL High 5-100 [facility] Neutrophils Auto (Bld) [#/Vo l]Ordered By: Paige Luther on 02-05-2024 Neutrophils (Bld) [#/Vol] 7.0 10*3/uL 1.8-7.7 [facility] Neutrophils/100 WBC Auto (Bl d)Ordered By: Paige Luther on 02-05-2024 Neutrophils/100 WBC (Bld) 78.3 % . [facility] No Panel InformationOrdered By: Paige Luther on 02-05-2024 Estimated GFR (CKD-EPI) > 60.0 mL/Min [facility] Creatinine Clearance (Chem 45.07 [facility] Slides for Pathologist Review Ordered path review [facility] Nucleated erythrocytes [Pres ence] in Blood by Automated countOrdered By: Paige Luther on 02-05-2024 Nucleated RBC Auto Ql (Bld) 0.1 /100{WBC} 0-0.5 [facility] Platelet adequacy [Presence] in Blood by Light microscopyOrdered By: Paige Luther on 02-05-2024 Platelets LM Ql (Bld) Normal Normal [facility] Platelet mean volume Auto (B ld) [Entitic vol]Ordered By: Paige Luther on 02-05-2024 Platelet mean volume (Bld) [Entitic vol] 10.6 fL High 6.6-10.1 [facility] Platelet morphology finding [Identifier] in BloodOrdered By: Paige Luther on 02-05-2024 Platelet morphology finding Nom (Bld) Normal Normal [facility] Platelets Auto (Bld) [#/Vol] Ordered By: Paige Luther on 02-05-2024 Platelets (Bld) [#/Vol] 277 10*3/uL 150-450 [facility] Poikilocytosis [Presence] in Blood by Light microscopyOrdered By: Paige Luther on 02-05-2024 Poikilocytosis LM Ql (Bld) Marked [facility] Polychromasia [Presence] in Blood by Light microscopyOrdered By: Paige Luther on 02-05-2024 Polychromasia LM Ql (Bld) Moderate [facility] Potassium [Moles/volume] in Serum or PlasmaOrdered By: Paige Luther on 02-05-2024 Potassium [Moles/Vol] 5.1 mmol/L 3.5-5.1 [facility] Protein [Mass/volume] in Ser um or PlasmaOrdered By: Paige Luther on 02-05-2024 Protein [Mass/Vol] 5.7 g/dL Low 6.4-8.9 [facility] Prothrombin time (PT)Ordered By: Paige Luther on 02-05-2024 PT Coag (PPP) [Time] 15.5 s High 9.0-12.9 [facility] Comment on above: A hematocrit value g reater than 55% may lead to inaccurate results in coagulation testing. Patients having hematocrit values >55% require a special collection tube for coagulation studies. Please contact the laboratory at [phone] for redraw instructions. RBC Auto (Bld) [#/Vol]Ordere d By: Paige Luther on 02-05-2024 RBC (Bld) [#/Vol] 3.11 10*6/uL Low 3.90-5.60 [facility] RBC morphologyOrdered By: Malou Luther on 02-05-2024 RBC morphology finding Nom (Bld) N/A [facility] Schistocytes [Presence] in B lood by Light microscopyOrdered By: Paige Luther on 02-05-2024 Schistocytes LM Ql (Bld) Moderate [facility] Serum or plasma albumin/glob ulin mass ratioOrdered By: Paige Luther on 02-05-2024 Albumin/Globulin [Mass ratio] 1.4 {ratio} [facility] Serum or plasma anion gap de terminationOrdered By: Paige Luther on 02-05-2024 Anion gap [Moles/Vol] 12.0 mmol/L 6.0-15.0 [facility] Serum or plasma non-glucuron idated bilirubin measurement (mass/volume)Ordered By: Paige Luther on 02-05-2024 Bilirubin.indirect [Mass/Vol] 0.4 mg/dL [facility] Sodium [Moles/volume] in Ser um or PlasmaOrdered By: Paige Luther on 02-05-2024 Sodium [Moles/Vol] 133 mmol/L Low 136-145 [facility] Target cellsOrdered By: Michelle Luther on 02-05-2024 Target cells LM Ql (Bld) Slight [facility] Troponin I.cardiac [Mass/vol ume] in Serum or Plasma by Detection limit <= 0.01 ng/Ordered By: Paige Luther on 02-05-2024 Troponin I.cardiac DL <= 0.01 ng/mL [Mass/Vol] 85.5 pg/mL High 0.0-20.0 [facility] Comment on above: Critical Result : Ca lled to and read back by: PAIGE BENNETT at: 02/06/2024 00:36:33 by:[id number] Urea nitrogen [Mass/volume] in Serum or PlasmaOrdered By: Paige Luther on 02-05-2024 Urea nitrogen [Mass/Vol] 58 mg/dL High 7-25 [facility] WBC Auto (Bld) [#/Vol]Ordere d By: Paige Luther on 02-05-2024 WBC (Bld) [#/Vol] 9.0 10*3/uL 4.1-10.5 [facility] CBC AND AUTO DIFFon 01-24-20 24 ABSOLUTE BASOPHIL 0.1 X10E9/L Normal 0.0-0.2 [facility] Comment on above: Performed By: #### C BCA, 40945-4, PINR, 06684-9, 06614-9, 30261-9, 97357-0, THYR, 25953-0, CMP, 34126-5, 2157-6 #### [facility] ([id number]) [address] [id number] #### HA1C #### [facility] ([id number]) [address], [address] [place] [address] ACANTHOCYTE 1+ Abnormal NONE [facility] Comment on above: Performed By: #### C BCA, 94956-5, PINR, 12983-6, 21702-8, 29317-5, 75668-0, THYR, 29112-7, CMP, 51738-4, 2157-6 #### [facility] ([id number]) [address] [place] [address] #### HA1C #### [facility] ([id number]) [address], [address] [place] [address] Band form neutrophils/100 WBC (Bld) 1.0 % Normal [facility] Comment on above: Performed By: #### C BCA, 36326-1, PINR, 02288-7, 78047-7, 76656-0, 26537-1, THYR, 62451-5, CMP, 44167-4, 2156-6 #### [facility] ([id number]) [address] [place] [address] #### HA1C #### [facility] ([id number]) [address], [address] [place] [address] Basophils/100 WBC (Bld) 1.0 % Normal [facility] Comment on above: Performed By: #### C BCA, 39642-8, PINR, 96426-8, 75223-3, 38000-4, 67299-6, THYR, 41743-7, CMP, 58965-3, 2157-6 #### [facility] ([id number]) [address] [place] [address] #### HA1C #### [facility] ([id number]) [address], [address] [place] [address] GEO 2+ Abnormal NONE [facility] Comment on above: Performed By: #### C BCA, 10302-1, PINR, 03483-0, 68744-5, 35206-0, 44140-4, THYR, 73092-8, CMP, 50605-6, 2156-6 #### [facility] ([id number]) [address] [place] [address] #### HA1C #### [facility] ([id number]) [address] [place] [address], [address] [place] [address] Eosinophils (Bld) [#/Vol] 0.2 10*3/uL Normal 0.0-0.4 [facility] Comment on above: Performed By: #### C BCA, 36068-8, PINR, 80006-6, 20422-9, 57790-1, 66857-3, THYR, 38532-0, CMP, 34222-8, 2156-6 #### [facility] ([id number]) [address] [place] [address] #### HA1C #### [facility] ([id number]) [address] [place] [address], [address] [place] [address] Eosinophils/100 WBC (Bld) 1.9 % Normal [facility] Comment on above: Performed By: #### C BCA, 47595-3, PINR, 87637-7, 31329-8, 09617-6, 66719-7, THYR, 65598-6, CMP, 59897-7, 2156- #### [facility] ([id number]) [address] [place] [address] #### HA1C #### [facility] ([id number]) [address] [place] [address], [address] [place] [address] Erythrocyte distribution width (RBC) [Ratio] 19.3 % High 11.5-15.0 [facility] Comment on above: Performed By: #### C BCA, 65181-9, PINR, 51991-2, 49605-3, 97914-3, 71881-5, THYR, 33689-7, CMP, 24543-8, 2156- #### [facility] ([id number]) [address] [place] [address] #### HA1C #### [facility] ([id number]) [address], [address] [place] [address] FRAGMENT 2+ Abnormal NONE [facility] Comment on above: Performed By: #### C BCA, 68669-1, PINR, 42032-7, 23709-2, 76211-1, 52080-8, THYR, 16387-5, CMP, 24180-7, 2156- #### [facility] ([id number]) [address] [place] [address] #### HA1C #### [facility] ([id number]) [address], [address] [place] [address] Hematocrit (Bld) [Volume fraction] 31.5 % Low 39-49 [facility] Comment on above: Performed By: #### C BCA, 00852-2, PINR, 47430-0, 67014-3, 03639-6, 22847-4, THYR, 46623-9, CMP, 19443-7, 2156- #### [facility] ([id number]) [address] [place] [address] #### HA1C #### [facility] ([id number]) [address], [address] [place] [address] Hemoglobin (Bld) [Mass/Vol] 10.4 g/dL Low 13.0-17.0 [facility] Comment on above: Performed By: #### C BCA, 02281-9, PINR, 15150-4, 40288-3, 45867-3, 68223-1, THYR, 98563-2, CMP, 44344-1, 2157-6 #### [facility] ([id number]) [address] [place] [address] #### HA1C #### [facility] ([id number]) [address], [address] [place] [address] HYPOCHROMIA 2+ Abnormal NONE [facility] Comment on above: Performed By: #### C BCA, 69001-2, PINR, 77043-1, 49287-7, 40908-4, 76136-9, THYR, 33926-8, CMP, 11816-5, 2156-6 #### [facility] ([id number]) [address] [place], [place] [address] #### HA1C #### [facility] ([id number]) [address], [address] [place] [address] LYMPHOCYTE, ATYPICAL 1.0 % Normal [facility] Comment on above: Performed By: #### C BCA, 35401-2, PINR, 95940-6, 55318-2, 22480-0, 59121-0, THYR, 32027-9, CMP, 21948-2, 2156- #### [facility] ([id number]) [address] [place] [address] #### HA1C #### [facility] ([id number]) [address], [address] [place] [address] Lymphocytes (Bld) [#/Vol] 1.9 10*3/uL Normal 1.0-3.5 [facility] Comment on above: Performed By: #### C BCA, 53457-6, PINR, 71114-2, 93659-1, 55086-1, 99983-4, THYR, 51331-3, CMP, 04043-8, 2156-6 #### [facility] ([id number]) [address] [place] [address] #### HA1C #### [facility] ([id number]) [address], [address] [place] [address] Lymphocytes/100 WBC (Bld) 20.0 % Normal [facility] Comment on above: Performed By: #### C BCA, 13490-6, PINR, 29776-6, 06696-1, 26312-2, 05203-3, THYR, 88119-2, CMP, 35191-2, 2157-6 #### [facility] ([id number]) [address] [place] [address] #### HA1C #### [facility] ([id number]) [address], [address] [place] [address] MCH (RBC) [Entitic mass] 24.6 pg Low 27-34 [facility] Comment on above: Performed By: #### C BCA, 81976-0, PINR, 49524-7, 12233-4, 48158-7, 58034-6, THYR, 46254-0, CMP, 40055-7, 2156-6 #### [facility] ([id number]) [address] [place] [address] #### HA1C #### [facility] ([id number]) [address], [address] [place] [address] MCHC (RBC) [Mass/Vol] 32.9 g/dL Normal 32-36 [facility] Comment on above: Performed By: #### C BCA, 46957-9, PINR, 77256-1, 25272-4, 97084-9, 21440-5, THYR, 46407-8, CMP, 70144-0, 2156-6 #### [facility] ([id number]) [address] [place] [address] #### HA1C #### [facility] ([id number]) [address], [address] [place] [address] MCV (RBC) [Entitic vol] 75 fL Low 80-100 [facility] Comment on above: Performed By: #### C BCA, 67686-0, PINR, 85641-1, 48013-5, 85778-7, 94380-8, THYR, 58089-3, CMP, 59170-0, 2156-6 #### [facility] ([id number]) [address] [place] [address] #### HA1C #### [facility] ([id number]) [address] [facility], [address] [place] [address] Monocytes (Bld) [#/Vol] 0.9 10*3/uL Normal 0-0.9 [facility] Comment on above: Performed By: #### C BCA, 02370-1, PINR, 71798-7, 16022-6, 19370-3, 24308-0, THYR, 42135-6, CMP, 64343-1, 2156-6 #### [facility] ([id number]) [address] [place] [address] #### HA1C #### [facility] ([id number]) [address] [place] [address], [address] [place] [address] Monocytes/100 WBC (Bld) 9.5 % Normal [facility] Comment on above: Performed By: #### C HEIDI, 78228-6, PINR, 00550-5, 52356-8, 87617-1, 08825-8, THYR, 10332-2, CMP, 73535-2, 2156- #### [facility] ([id number]) [address] [place] [address] #### HA1C #### [facility] ([id number]) [address] [place] [address], [address] [place] [address] Neutrophils (Bld) [#/Vol] 6.1 10*3/uL Normal 1.5-6.6 [facility] Comment on above: Performed By: #### C BCA, 58248-0, PINR, 57384-1, 69768-7, 60836-5, 53241-7, THYR, 36736-0, CMP, 69177-9, 2156-6 #### [facility] ([id number]) [facility] [place] [address] #### HA1C #### [facility] ([id number]) [address] [facility], [address] [place] [address] Platelet mean volume (Bld) [Entitic vol] 10.6 fL Normal 7-12 [facility] Comment on above: Performed By: #### C BCA, 56717-7, PINR, 00147-0, 77259-1, 31505-2, 24002-3, THYR, 92152-1, CMP, 61868-1, 2156-6 #### [facility] ([id number]) [address] [place] [address] #### HA1C #### [facility] ([id number]) [address] [facility], [address] [place] [address] Platelets (Bld) [#/Vol] 245 10*3/uL Normal 150-450 [facility] Comment on above: Performed By: #### C BCA, 74188-6, PINR, 35655-1, 21424-0, 54696-9, 60719-3, THYR, 39429-2, CMP, 25371-4, 2156-6 #### [facility] ([id number]) [address] [place] [address] #### HA1C #### [facility] ([id number]) [address] [facility], [address] [place] [address] RBC COUNT 4.22 X10E12/L Normal 4.10-5.70 [facility] Comment on above: Performed By: #### C BCA, 79859-6, PINR, 34641-6, 58550-6, 77028-2, 66224-6, THYR, 03310-0, CMP, 56616-3, 2157-6 #### [facility] ([id number]) [address] [place] [address] #### HA1C #### [facility] ([id number]) [address], [address] [place] [address] SEG NEUTROPHIL 65.6 % Normal [facility] Comment on above: Performed By: #### C BCA, 16402-1, PINR, 45981-9, 81235-9, 96668-3, 73305-4, THYR, 78565-9, CMP, 27898-7, 2156-6 #### [facility] ([id number]) [address] [place] [address] #### HA1C #### [facility] ([id number]) [address], [address] [place] [address] TARGET 1+ Abnormal NONE [facility] Comment on above: Performed By: #### C BCA, 10370-0, PINR, 05609-3, 44463-9, 86294-4, 17456-3, THYR, 71991-8, CMP, 44373-7, 2156-6 #### [facility] ([id number]) [address] [place] [address] #### HA1C #### [facility] ([id number]) [address], [address] [place] [address] WBC (Bld) [#/Vol] 9.2 10*3/uL Normal 4.0-11.0 [facility] Comment on above: Performed By: #### C BCA, 46294-5, PINR, 12873-2, 32902-3, 98837-8, 60647-5, THYR, 79369-7, CMP, 23053-7, 2157-6 #### [facility] ([id number]) [address] [place] [address] #### HA1C #### [facility] ([id number]) [address] [facility], [address] [place] [address] CK [Catalytic activity/Vol]o n 01-24-2024 CPK 283 U/L High 24-195 [facility] Comment on above: Performed By: #### C BCA, 54387-3, PINR, 01439-4, 61853-8, 09627-6, 14903-7, THYR, 74178-5, CMP, 79821-6, 2157-6 #### [facility] ([id number]) [address] [place] [address] #### HA1C #### [facility] ([id number]) [address] [facility], [address] [place] [address] CPK 350 U/L High 24-195 [facility] Comment on above: Performed By: #### C BCA, 87611-7, PINR, 82259-9, 76662-2, 79283-9, 61099-7, THYR, 72305-8, CMP, 48002-5, 2157-6 #### [facility] ([id number]) [address] [place] [address] #### HA1C #### [facility] ([id number]) [address] [place] [address], [address] [place] [address] COMPREHENSIVE METABOLIC PANE Jairo 01-24-2024 Albumin [Mass/Vol] 3.4 g/dL Normal 3.2-5.3 [facility] Comment on above: Performed By: #### C BCA, 22720-7, PINR, 57832-2, 97159-8, 63298-1, 64378-3, THYR, 41184-0, CMP, 87663-9, 2157-6 #### [facility] ([id number]) [address] [place] [address] #### HA1C #### [facility] ([id number]) [address], [address] [place] [address] ALP [Catalytic activity/Vol] 102 U/L Normal 39-130 [facility] Comment on above: Performed By: #### C BCA, 00909-4, PINR, 74424-4, 56568-8, 23536-5, 16282-4, THYR, 23909-4, CMP, 93719-0, 2157-6 #### [facility] ([id number]) [address] [place] [address] #### HA1C #### [facility] ([id number]) [address] [facility], [address] [place] [address] ALT [Catalytic activity/Vol] 26 U/L Normal 0-40 [facility] Comment on above: Performed By: #### C BCA, 94400-4, PINR, 69025-6, 50572-6, 62266-8, 21032-6, THYR, 79443-4, CMP, 72381-9, 2157-6 #### [facility] ([id number]) [address] [place] [address] #### HA1C #### [facility] ([id number]) [address], [address] [place] [address] Anion gap [Moles/Vol] 9 mmol/L Normal 5-15 [facility] Comment on above: Performed By: #### C BCA, 98782-6, PINR, 60146-3, 51560-5, 28178-8, 22630-1, THYR, 75110-6, CMP, 40743-7, 2157-6 #### [facility] ([id number]) [address] [place], [place] [id number] #### HA1C #### [facility] ([id number]) [address], [address] [place] [address] AST [Catalytic activity/Vol] 31 U/L Normal 0-41 [facility] Comment on above: Performed By: #### C BCA, 00328-3, PINR, 24867-1, 34528-9, 06547-6, 52390-0, THYR, 17147-3, CMP, 40826-7, 7-6 #### [facility] ([id number]) [address] [place] [address] #### HA1C #### [facility] ([id number]) [address] [place] [address], [address] [place] [address] Bilirubin [Mass/Vol] 0.7 mg/dL Normal 0.3-1.2 [facility] Comment on above: Performed By: #### C BCA, 43444-9, PINR, 43126-9, 59114-2, 22692-1, 23511-2, THYR, 37522-7, CMP, 71611-4, 2156-6 #### [facility] ([id number]) [address] [place] [address] #### HA1C #### [facility] ([id number]) [address] [place] [address], [address] [place] [address] Calcium [Mass/Vol] 8.5 mg/dL Normal 8.5-10.5 [facility] Comment on above: Performed By: #### C BCA, 39608-9, PINR, 69228-6, 67477-7, 91371-4, 54000-5, THYR, 16346-6, CMP, 47331-2, 2156-6 #### [facility] ([id number]) [address] [place] [address] #### HA1C #### [facility] ([id number]) [address] [place] [address], [address] [place] [address] Chloride [Moles/Vol] 103 mmol/L Normal 98-109 [facility] Comment on above: Performed By: #### C BCA, 77231-9, PINR, 61146-2, 78144-0, 87865-2, 32527-7, THYR, 19908-0, CMP, 16974-4, 2157-6 #### [facility] ([id number]) [address] [place] [address] #### HA1C #### [facility] ([id number]) [address], [address] [place] [address] CO2 [Moles/Vol] 24 mmol/L Normal 22-32 [facility] Comment on above: Performed By: #### C BCA, 39565-7, PINR, 91097-2, 33631-5, 95778-7, 79031-3, THYR, 99058-7, CMP, 31243-1, 7-6 #### [facility] ([id number]) [address] [place] [address] #### HA1C #### [facility] ([id number]) [address] [facility], [address] [address] Creatinine [Mass/Vol] 0.77 mg/dL Normal 0.60-1.30 [facility] Comment on above: Result Comment: METH OD TRACEABLE TO IDMS STANDARD Performed By: #### C BCA, 47125-9, PINR, 48121-6, 15317-9, 38024-6, 15230-1, THYR, 56117-1, CMP, 36743-6, 2157-6 #### [facility] [facility] ([id number]) [address] [place] [address] #### HA1C #### [facility] ([id number]) [address] [place] [address] GFR/1.73 sq M.predicted among non-blacks MDRD (S/P/Bld) [Vol rate/Area] 87 mL/min/{1.73_m2} Normal >59 [facility] Comment on above: Result Comment: Reported eGFR is based on the CKD-EPI 2020 equation that does not use a race coefficient. Performed By: #### C BCA, 63774-0, PINR, 20324-1, 83227-3, 20544-2, 33949-1, THYR, 38816-2, CMP, 46431-7, 2156-6 #### [facility] ([id number]) [address] [place] [address] #### HA1C #### [facility] ([id number]) [address] [place] [address], [address] [place] [address] Glucose [Mass/Vol] 167 mg/dL High 65-99 [facility] Comment on above: Performed By: #### C BCA, 75418-2, PINR, 47969-1, 51411-4, 61888-4, 96990-5, THYR, 77137-4, CMP, 00164-2, 2156- #### [facility] ([id number]) [address] [place] [address] #### HA1C #### [facility] ([id number]) [address] [place] [address], [address] [place] [address] Potassium [Moles/Vol] 4.0 mmol/L Normal 3.5-5.0 [facility] Comment on above: Performed By: #### C BCA, 60868-8, PINR, 02908-4, 86412-8, 58216-5, 85486-0, THYR, 20882-9, CMP, 01761-2, 2156- #### [facility] ([id number]) [address] [place] [address] #### HA1C #### [facility] ([id number]) [address] [place] [address], [address] [place] [address] Protein [Mass/Vol] 6.0 g/dL Normal 6.0-8.0 [facility] Comment on above: Performed By: #### C BCA, 77799-3, PINR, 83882-2, 93936-1, 32633-4, 11483-1, THYR, 13220-0, CMP, 08275-0, 2157-6 #### [facility] ([id number]) [address] [place] [address] #### HA1C #### [facility] ([id number]) [address], [address] [place] [address] Sodium [Moles/Vol] 136 mmol/L Normal 134-146 [facility] Comment on above: Performed By: #### C BCA, 71381-1, PINR, 78043-4, 31086-2, 25594-7, 76252-1, THYR, 67590-6, CMP, 38859-7, 7-6 #### [facility] ([id number]) [address] [place] [address] #### HA1C #### [facility] ([id number]) [address], [address] [place] [address] Urea nitrogen [Mass/Vol] 16 mg/dL Normal 5-27 [facility] Comment on above: Performed By: #### C BCA, 48331-7, PINR, 93542-1, 15969-0, 39758-4, 90075-8, THYR, 99037-0, CMP, 31735-3, 7-6 #### [facility] ([id number]) [address] [place] [address] #### HA1C #### [facility] ([id number]) [address], [address] [place] [address] Glucose Glucometer (dC) [M ass/Vol]on 01-24-2024 Glucose [Mass/Vol] 371 mg/dL High 65-99 [facility] Glucose [Mass/Vol] 181 mg/dL High 65-99 [facility] MAGNESIUMon 01-24-2024 Magnesium [Mass/Vol] 1.6 mg/dL Low 1.8-2.6 [facility] Comment on above: Performed By: #### C BCA, 79472-6, PINR, 73078-8, 38027-9, 87285-8, 45712-6, THYR, 28066-8, CMP, 51818-3, 2157-6 #### [facility] ([id number]) [address] [place] [address] #### HA1C #### [facility] ([id number]) [address] [place] [address], [address] [place] [address] CK [Catalytic activity/Vol]o n 01-23-2024 CPK 471 U/L High 24-195 [facility] Comment on above: Performed By: #### C BCA, 97421-6, PINR, 13003-1, 11526-1, 22306-2, 71361-6, THYR, 37827-2, CMP, 99197-3, 2157-6 #### [facility] ([id number]) [address] [place] [address] #### HA1C #### [facility] ([id number]) [address] [place] [address], [address] [place] [address] CPK 591 U/L High 24-195 [facility] Comment on above: Performed By: #### C BCA, 15253-5, PINR, 97891-0, 02885-2, 24287-8, 87898-9, THYR, 68325-8, CMP, 00876-7, 2156-6 #### [facility] ([id number]) [address] [place] [address] #### HA1C #### [facility] ([id number]) [address] [place] [address], [address] [place] [address] CPK 875 U/L High 24-195 [facility] Comment on above: Performed By: #### C BCA, 85098-2, PINR, 87906-3, 40966-8, 53630-7, 71211-0, THYR, 79944-3, CMP, 61978-1, 7-6 #### [facility] ([id number]) [address] [place] [address] #### HA1C #### [facility] ([id number]) [address], [address] [place] [address] COMPLETE BLOOD COUNTon 01-22 Erythrocyte distribution width (RBC) [Ratio] 19.8 % High 11.5-15.0 [facility] Comment on above: Performed By: #### C BCA, 66094-7, PINR, 01982-8, 68944-8, 46928-6, 81166-7, THYR, 82441-7, CMP, 01020-9, 2156-6 #### [facility] ([id number]) [address] [place] [address] #### HA1C #### [facility] ([id number]) [address], [address] [place] [address] Hematocrit (Bld) [Volume fraction] 34.0 % Low 39-49 [facility] Comment on above: Performed By: #### C BCA, 64933-7, PINR, 69631-1, 51148-6, 97865-2, 73853-3, THYR, 03753-9, CMP, 39295-1, 2156- #### [facility] ([id number]) [address] [place] [address] #### HA1C #### [facility] ([id number]) [address] [facility], [address] [place] [address] Hemoglobin (Bld) [Mass/Vol] 11.0 g/dL Low 13.0-17.0 [facility] Comment on above: Performed By: #### C BCA, 09801-2, PINR, 63578-0, 72439-2, 98438-6, 38556-4, THYR, 62256-4, CMP, 60630-5, 2157-6 #### [facility] ([id number]) [address] [place] [address] #### HA1C #### [facility] ([id number]) [address], [address] [place] [address] MCH (RBC) [Entitic mass] 24.3 pg Low 27-34 [facility] Comment on above: Performed By: #### C BCA, 48198-5, PINR, 83593-8, 57564-0, 62599-0, 41262-9, THYR, 69756-2, CMP, 14916-9, 2156-6 #### [facility] ([id number]) [address] [place] [address] #### HA1C #### [facility] ([id number]) [address], [address] [place] [address] MCHC (RBC) [Mass/Vol] 32.3 g/dL Normal 32-36 [facility] Comment on above: Performed By: #### C BCA, 05611-1, PINR, 42785-1, 64483-6, 05170-1, 52323-3, THYR, 75095-2, CMP, 35448-5, 2156-6 #### [facility] ([id number]) [address] [place] [address] #### HA1C #### [facility] ([id number]) [address], [address] [place] [address] MCV (RBC) [Entitic vol] 75 fL Low 80-100 [facility] Comment on above: Performed By: #### C BCA, 96387-3, PINR, 28568-8, 60223-5, 61195-1, 73651-1, THYR, 34066-1, CMP, 79200-5, 2156-6 #### [facility] ([id number]) [address] [place] [address] #### HA1C #### [facility] ([id number]) [address] [place] [address], [facility] [address] [place] [address] Platelet mean volume (Bld) [Entitic vol] 10.5 fL Normal 7-12 [facility] Comment on above: Performed By: #### C BCA, 98740-9, PINR, 09522-5, 74616-6, 58640-4, 01017-9, THYR, 46580-1, CMP, 72333-4, 2157-6 #### [facility] ([id number]) [address] [place] [address] #### HA1C #### [facility] ([id number]) [address] [place] [address], [address] [address] Platelets (Bld) [#/Vol] 237 10*3/uL Normal 150-450 [facility] Comment on above: Performed By: #### C BCA, 10482-8, PINR, 67179-8, 78291-7, 27701-6, 28020-6, THYR, 85983-9, CMP, 33470-9, 2156-6 #### [facility] ([id number]) [address] [place] [address] #### HA1C #### [facility] ([id number]) [facility], [address] [place] [address] RBC COUNT 4.51 X10E12/L Normal 4.10-5.70 [facility] Comment on above: Performed By: #### C BCA, 91693-3, PINR, 50032-5, 62789-4, 51012-7, 38934-3, THYR, 54040-0, CMP, 35325-1, 2157-6 #### [facility] ([id number]) [address] [place] [address] #### HA1C #### [facility] ([id number]) [address] [facility], [address] [place] [address] WBC (Bld) [#/Vol] 12.3 10*3/uL High 4.0-11.0 [facility] Comment on above: Performed By: #### C BCA, 96234-1, PINR, 70415-6, 47822-0, 20558-4, 29451-1, THYR, 87755-8, CMP, 30861-1, 2157-6 #### [facility] ([id number]) [address] [place] [address] #### HA1C #### [facility] ([id number]) [address] [facility], [address] [place] [address] COMPREHENSIVE METABOLIC PANE Jairo 01-23-2024 Albumin [Mass/Vol] 3.7 g/dL Normal 3.2-5.3 [facility] Comment on above: Performed By: #### C BCA, 25278-1, PINR, 70646-7, 97978-3, 43254-5, 91567-1, THYR, 41021-0, CMP, 98969-2, 2156-6 #### [facility] ([id number]) [address] [place] [address] #### HA1C #### [facility] ([id number]) [address] [place] [address], [address] [place] [address] ALP [Catalytic activity/Vol] 117 U/L Normal 39-130 [facility] Comment on above: Performed By: #### C BCA, 02045-8, PINR, 99139-7, 44915-9, 70288-9, 70698-9, THYR, 44618-5, CMP, 20036-3, 7-6 #### [facility] ([id number]) [address] [place] [address] #### HA1C #### [facility] ([id number]) [address], [address] [place] [address] ALT [Catalytic activity/Vol] 29 U/L Normal 0-40 [facility] Comment on above: Performed By: #### C BCA, 84984-7, PINR, 94873-0, 26009-8, 76762-0, 75372-2, THYR, 73066-2, CMP, 93146-1, 2157-6 #### [facility] ([id number]) [facility] [place] [address] #### HA1C #### [facility] ([id number]) [address] [facility], [address] [place] [address] Anion gap [Moles/Vol] 13 mmol/L Normal 5-15 [facility] Comment on above: Performed By: #### C BCA, 05043-4, PINR, 04564-7, 76180-8, 76884-3, 79412-5, THYR, 81762-8, CMP, 06988-5, 2157-6 #### [facility] ([id number]) [address] [place] [address] #### HA1C #### [facility] ([id number]) [address] [facility], [address] [place] [address] AST [Catalytic activity/Vol] 51 U/L High 0-41 [facility] Comment on above: Performed By: #### C BCA, 80897-4, PINR, 78070-6, 03059-0, 06346-7, 19393-6, THYR, 78782-5, CMP, 44659-7, 2157-6 #### [facility] ([id number]) [address] [place], [place] [address] #### HA1C #### [facility] ([id number]) [address], [address] [place] [address] Bilirubin [Mass/Vol] 0.7 mg/dL Normal 0.3-1.2 [facility] Comment on above: Performed By: #### C BCA, 48344-2, PINR, 89435-4, 19431-3, 02182-2, 61598-2, THYR, 33236-9, CMP, 47580-7, 2156-6 #### [facility] ([id number]) [address] [place] [address] #### HA1C #### [facility] ([id number]) [address] [place] [address], [address] [place] [address] Calcium [Mass/Vol] 8.5 mg/dL Normal 8.5-10.5 [facility] Comment on above: Performed By: #### C BCA, 72497-3, PINR, 67869-3, 23891-2, 53952-6, 75556-6, THYR, 81150-6, CMP, 00271-7, 2156-6 #### [facility] ([id number]) [address] [place] [address] #### HA1C #### [facility] ([id number]) [address] [place] [address], [address] [place] [address] Chloride [Moles/Vol] 103 mmol/L Normal 98-109 [facility] Comment on above: Performed By: #### C BCA, 82279-7, PINR, 98209-1, 62226-1, 01283-0, 69126-9, THYR, 97456-8, CMP, 44312-2, 2156-6 #### [facility] ([id number]) [address] [place] [address] #### HA1C #### [facility] ([id number]) [address] [place] [address], [address] [place] [address] CO2 [Moles/Vol] 19 mmol/L Low 22-32 [facility] Comment on above: Performed By: #### C BCA, 13757-9, PINR, 38940-1, 78852-2, 58070-7, 44905-6, THYR, 73681-5, CMP, 22077-5, 2157-6 #### [facility] ([id number]) [facility] [place] [address] #### HA1C #### [facility] ([id number]) [address] [facility], [address] [place] [address] Creatinine [Mass/Vol] 0.72 mg/dL Normal 0.60-1.30 [facility] Comment on above: Result Comment: METH OD TRACEABLE TO IDMS STANDARD Performed By: #### C BCA, 51376-2, PINR, 28767-1, 91205-0, 71995-6, 32022-0, THYR, 91031-7, CMP, 87782-5, 2156-6 #### [facility] ([id number]) [address] [place] [address] #### HA1C #### [facility] ([id number]) [address] [facility], [address] [place] [address] GFR/1.73 sq M.predicted among non-blacks MDRD (S/P/Bld) [Vol rate/Area] 89 mL/min/{1.73_m2} Normal >59 [facility] Comment on above: Result Comment: Reported eGFR is based on the CKD-EPI 2020 equation that does not use a race coefficient. Performed By: #### C BCA, 10138-5, PINR, 13010-2, 83073-2, 64193-2, 87924-8, THYR, 45547-4, CMP, 08094-5, 7-6 #### [facility] ([id number]) [facility] [place] [address] #### HA1C #### [facility] ([id number]) [address] [facility], [address] [place] [address] Glucose [Mass/Vol] 208 mg/dL High 65-99 [facility] Comment on above: Performed By: #### C BCA, 54701-6, PINR, 99266-2, 13939-4, 14174-9, 11142-8, THYR, 51955-4, CMP, 88084-5, 2156-6 #### [facility] ([id number]) [address] [place] [address] #### HA1C #### [facility] ([id number]) [address] [facility], [address] [place] [address] Potassium [Moles/Vol] 4.2 mmol/L Normal 3.5-5.0 [facility] Comment on above: Performed By: #### C BCA, 15992-9, PINR, 90346-2, 99087-0, 98742-9, 41480-6, THYR, 30336-2, CMP, 49223-6, 2156- #### [facility] ([id number]) [address] [place] [address] #### HA1C #### [facility] ([id number]) [address] [facility], [address] [place] [address] Protein [Mass/Vol] 6.6 g/dL Normal 6.0-8.0 [facility] Comment on above: Performed By: #### C BCA, 02423-9, PINR, 44913-5, 75062-2, 60575-8, 75277-2, THYR, 92224-2, CMP, 72042-6, 2156- #### [facility] ([id number]) [address] [place] [address] #### HA1C #### [facility] ([id number]) [address] [facility], [address] [place] [address] Sodium [Moles/Vol] 135 mmol/L Normal 134-146 [facility] Comment on above: Performed By: #### C BCA, 73152-3, PINR, 60197-7, 46831-1, 70276-2, 22640-1, THYR, 28958-7, CMP, 95753-1, 2157-6 #### [facility] ([id number]) [address] [place] [address] #### HA1C #### [facility] ([id number]) [address] [facility], [address] [place] [address] Urea nitrogen [Mass/Vol] 18 mg/dL Normal 5-27 [facility] Comment on above: Performed By: #### C BCA, 06178-8, PINR, 53281-2, 29910-3, 51631-9, 49101-9, THYR, 14000-2, CMP, 56455-0, 2156-6 #### [facility] ([id number]) [address] [place] [address] #### HA1C #### [facility] ([id number]) [address] [facility], [address] [place] [address] DIFFERENTIALon 01-23-2024 ACANTHOCYTE 1+ Abnormal NONE [facility] Comment on above: Performed By: #### C BCA, 71378-0, PINR, 27557-4, 20643-2, 96805-4, 90179-5, THYR, 03799-6, CMP, 03063-1, 2156-6 #### [facility] ([id number]) [address] [place] [address] #### HA1C #### [facility] ([id number]) [address] [facility], [address] [place] [address] Anisocytosis Ql (Bld) 2+ Abnormal NONE [facility] Comment on above: Performed By: #### C BCA, 41383-5, PINR, 32139-4, 34633-0, 40388-7, 46056-2, THYR, 57486-0, CMP, 91410-8, 2157-6 #### [facility] ([id number]) [address] [place] [address] #### HA1C #### [facility] ([id number]) [address], [address] [place] [address] Band form neutrophils/100 WBC (Bld) 9.0 % Normal [facility] Comment on above: Performed By: #### C BCA, 26917-2, PINR, 88518-4, 70914-0, 62086-9, 75736-2, THYR, 77438-1, CMP, 96947-5, 7-6 #### [facility] ([id number]) [address] [place] [address] #### HA1C #### [facility] ([id number]) [address] [address] GEO 2+ Abnormal NONE [facility] Comment on above: Performed By: #### C BCA, 05238-8, PINR, 40803-5, 90652-6, 56395-1, 95539-8, THYR, 59914-8, CMP, 39608-4, 2156-6 #### [facility] ([id number]) [address] [place], [place] [address] #### HA1C #### [facility] ([id number]) [address] [facility] [address] [place] [address] Eosinophils (Bld) [#/Vol] 0.1 10*3/uL Normal 0.0-0.4 [facility] Comment on above: Performed By: #### C BCA, 64094-4, PINR, 50345-8, 39380-7, 09452-3, 56253-7, THYR, 21419-2, CMP, 95482-9, 2156-6 #### [facility] ([id number]) [address] [place] [address] #### HA1C #### [facility] ([id number]) [address] [facility], [address] [place] [address] Eosinophils/100 WBC (Bld) 1.0 % Normal [facility] Comment on above: Performed By: #### C BCA, 63510-4, PINR, 15489-3, 63306-5, 06738-1, 99466-4, THYR, 47607-6, CMP, 64411-7, 2157-6 #### [facility] ([id number]) [address] [place] [address] #### HA1C #### [facility] ([id number]) [address], [address] [place] [address] FRAGMENT 1+ Abnormal [facility] Comment on above: Performed By: #### C BCA, 30121-7, PINR, 81397-9, 52275-9, 07554-9, 79340-9, THYR, 33194-9, CMP, 34627-5, 2157-6 #### [facility] ([id number]) [address] [place] [address] #### HA1C #### [facility] ([id number]) [address], [address] [place] [address] ARGUELLO-JOLLY BODY 1+ Abnormal NONE [facility] Comment on above: Performed By: #### C BCA, 26255-0, PINR, 24670-4, 80081-1, 56342-1, 71078-5, THYR, 97074-4, CMP, 23549-6, 2157-6 #### [facility] ([id number]) [facility] [place] [address] #### HA1C #### [facility] ([id number]) [address], [address] [place] [address] HYPOCHROMIA 1+ Abnormal NONE [facility] Comment on above: Performed By: #### C BCA, 07176-5, PINR, 55178-3, 62775-6, 05980-8, 36698-1, THYR, 34651-4, CMP, 00728-7, 2157-6 #### [facility] ([id number]) [address] [place] [address] #### HA1C #### [facility] ([id number]) [address] [facility], [address] [place] [address] LYMPHOCYTE, ATYPICAL 1.0 % Normal [facility] Comment on above: Performed By: #### C BCA, 79672-5, PINR, 80723-2, 82543-3, 48234-5, 65731-6, THYR, 82899-1, CMP, 35124-9, 2156- #### [facility] ([id number]) [address] [place] [address] #### HA1C #### [facility] ([id number]) [address] [facility], [address] [place] [address] Lymphocytes (Bld) [#/Vol] 1.6 10*3/uL Normal 1.0-3.5 [facility] Comment on above: Performed By: #### C BCA, 62532-6, PINR, 76451-7, 77316-6, 64090-6, 01318-7, THYR, 78780-7, CMP, 76049-6, 2156- #### [facility] ([id number]) [address] [place] [address] #### HA1C #### [facility] ([id number]) [address] [facility], [address] [place] [address] Lymphocytes/100 WBC (Bld) 12.0 % Normal [facility] Comment on above: Performed By: #### C BCA, 42937-4, PINR, 43546-0, 83800-8, 03451-9, 35740-5, THYR, 32617-7, CMP, 38829-8, 2156- #### [facility] ([id number]) [address] [place] [address] #### HA1C #### [facility] ([id number]) [address] [facility], [address] [place] [address] Monocytes (Bld) [#/Vol] 1.4 10*3/uL High 0-0.9 [facility] Comment on above: Performed By: #### C BCA, 00436-7, PINR, 79686-8, 27426-3, 36343-1, 65954-5, THYR, 54253-8, CMP, 64232-2, 2157-6 #### [facility] ([id number]) [address] [place] [address] #### EVERARDO1C #### [facility] ([id number]) [address] [place] [address], [address] [place] [address] Monocytes/100 WBC (Bld) 11.0 % Normal [facility] Comment on above: Performed By: #### C BCA, 74146-7, PINR, 66543-3, 27927-0, 59418-4, 72558-3, THYR, 87104-4, CMP, 60569-1, 2157-6 #### [facility] ([id number]) [address] [place] [address] #### HA1C #### [facility] ([id number]) [address] [facility], [address] [place] [address] Neutrophils (Bld) [#/Vol] 9.2 10*3/uL High 1.5-6.6 [facility] Comment on above: Performed By: #### C BCA, 90067-3, PINR, 78566-8, 79365-3, 94621-1, 76358-5, THYR, 28220-0, CMP, 99743-4, 2157-6 #### [facility] ([id number]) [address] [place] [address] #### HA1C #### [facility] ([id number]) [address], [address] [place] [address] POLYCHROMASIA 1+ Abnormal [facility] Comment on above: Performed By: #### C BCA, 94614-0, PINR, 28719-9, 16301-0, 69196-6, 86487-6, THYR, 04455-0, CMP, 77203-8, 2157-6 #### [facility] ([id number]) [address] [place] [address] #### HA1C #### [facility] ([id number]) [address], [address] [place] [address] SEG NEUTROPHIL 66.0 % Normal [facility] Comment on above: Performed By: #### C BCA, 77304-3, PINR, 61163-6, 41785-2, 58146-9, 57020-6, THYR, 21636-0, CMP, 09894-9, 2157-6 #### [facility] ([id number]) [address] [place] [address] #### HA1C #### [facility] ([id number]) [address], [address] [place] [address] SPHEROCYTE 1+ Abnormal [facility] Comment on above: Performed By: #### C BCA, 18811-5, PINR, 87322-0, 23406-1, 89539-5, 63342-7, THYR, 46317-2, CMP, 50284-4, 2157-6 #### [facility] ([id number]) [address] [place] [address] #### HA1C #### [facility] ([id number]) [address], [address] [place] [address] TARGET 1+ Abnormal NONE [facility] Comment on above: Performed By: #### C BCA, 85143-9, PINR, 74182-8, 29357-7, 22377-9, 88761-7, THYR, 55544-1, CMP, 73322-8, 2156-6 #### [facility] ([id number]) [address] [place] [address] #### HA1C #### [facility] ([id number]) [address] [facility], [address] [place] [address] Glucose Glucometer (BldC) [M ass/Vol]on 01-23-2024 Glucose [Mass/Vol] 274 mg/dL High 65-99 [facility] Glucose [Mass/Vol] 426 mg/dL Critically high 65-99 [facility] Glucose [Mass/Vol] 450 mg/dL Critically high 65-99 [facility] Glucose [Mass/Vol] 245 mg/dL High 65-99 [facility] Heparin unfractionated Chrom ogenic method Qn (PPP)on 01-23-2024 ANTI XA UFH 0.38 IU/mL Normal 0.30-0.70 [facility] Comment on above: Result Comment: Opti mal time for testing is 6 hrs post dosage This test is specific for monitoring patients on UFH, and is not recommended for use with other Anti-Xa medications. Performed By: #### C BCA, 52138-4, PINR, 47124-2, 05137-9, 88193-7, 18636-1, THYR, 58809-9, CMP, 21417-9, 2156- #### [facility] ([id number]) [address] [place], [place] [address] #### HA1C #### [facility] ([id number]) [address] [facility], [address] [place] [address] ANTI XA UFH 0.44 IU/mL Normal 0.30-0.70 [facility] Comment on above: Result Comment: Opti mal time for testing is 6 hrs post dosage This test is specific for monitoring patients on UFH, and is not recommended for use with other Anti-Xa medications. Performed By: #### C BCA, 58131-6, PINR, 39666-1, 43706-7, 05813-5, 97657-7, THYR, 29448-9, CMP, 02918-0, 2156-6 #### [facility] ([id number]) [address] [place] [address] #### HA1C #### [facility] ([id number]) [address] [place] [address], [address] [place] [address] MAGNESIUMon 01-23-2024 Magnesium [Mass/Vol] 1.8 mg/dL Normal 1.8-2.6 [facility] Comment on above: Performed By: #### C BCA, 54214-7, PINR, 67343-5, 63418-7, 31697-3, 18093-1, THYR, 59694-2, CMP, 41064-1, 2156-12 #### [facility] ([id number]) [address] [place] [address] #### HA1C #### [facility] ([id number]) [address] [place] [address], [address] [place] [address] CBC AND AUTO DIFFon 01-22-20 24 ACANTHOCYTE 1+ Abnormal NONE [facility] Comment on above: Performed By: #### C BCA, 75488-3, PINR, 76293-4, 07993-2, 29723-8, 32752-9, THYR, 42046-4, CMP, 48060-5, 2156- #### [facility] ([id number]) [address] [place] [address] #### HA1C #### [facility] ([id number]) [address] [place] [address], [address] [place] [address] Anisocytosis Ql (Bld) 2+ Abnormal NONE [facility] Comment on above: Performed By: #### C BCA, 62281-2, PINR, 84954-1, 11390-4, 33190-5, 58098-8, THYR, 85954-3, CMP, 10432-6, 2157-6 #### [facility] ([id number]) [address] [place] [address] #### HA1C #### [facility] ([id number]) [address], [address] [place] [address] Band form neutrophils/100 WBC (Bld) 7.0 % Normal [facility] Comment on above: Performed By: #### C BCA, 11165-0, PINR, 90353-3, 79567-3, 30426-3, 91902-2, THYR, 18426-1, CMP, 43062-1, 2156-6 #### [facility] ([id number]) [address] [place] [address] #### HA1C #### [facility] ([id number]) [address], [address] [place] [address] GEO 1+ Abnormal NONE [facility] Comment on above: Performed By: #### C BCA, 31427-8, PINR, 41594-6, 83605-3, 57378-2, 91463-9, THYR, 46657-7, CMP, 67119-0, 2156- #### [facility] ([id number]) [address] [place] [address] #### HA1C #### [facility] ([id number]) [address], [address] [place] [address] Eosinophils (Bld) [#/Vol] 0.6 10*3/uL High 0.0-0.4 [facility] Comment on above: Performed By: #### C BCA, 82383-9, PINR, 78799-9, 11951-2, 30934-6, 14663-0, THYR, 65847-4, CMP, 78999-1, 2156- #### [facility] ([id number]) [address] [place] [address] #### HA1C #### [facility] ([id number]) [address] [facility], [facility] [address] [place] [address] Eosinophils/100 WBC (Bld) 7.0 % Normal [facility] Comment on above: Performed By: #### C BCA, 90474-4, PINR, 81878-0, 24655-7, 49403-9, 90054-6, THYR, 87739-7, CMP, 32550-3, 7-6 #### [facility] ([id number]) [address] [place] [address] #### HA1C #### [facility] ([id number]) [address] [facility], [facility] [address] [place] [address] Erythrocyte distribution width (RBC) [Ratio] 19.3 % High 11.5-15.0 [facility] Comment on above: Performed By: #### C BCA, 65683-5, PINR, 29592-2, 02732-3, 85211-1, 90414-0, THYR, 52131-8, CMP, 26980-2, 7-6 #### [facility] ([id number]) [address] [place] [address] #### HA1C #### [facility] ([id number]) [address] [place] [address], [facility] [address] [place] [address] FRAGMENT 1+ Abnormal NONE [facility] Comment on above: Performed By: #### C BCA, 75616-2, PINR, 74863-2, 83109-5, 86910-5, 13266-9, THYR, 90573-1, CMP, 60010-5, 2156-6 #### [facility] ([id number]) [address] [place] [address] #### HA1C #### [facility] ([id number]) [address], [address] [place] [address] Hematocrit (Bld) [Volume fraction] 29.9 % Low 39-49 [facility] Comment on above: Performed By: #### C BCA, 05866-7, PINR, 47528-5, 35394-2, 97596-9, 05210-7, THYR, 70513-9, CMP, 04154-8, 2157-6 #### [facility] ([id number]) [address] [place] [address] #### HA1C #### [facility] ([id number]) [address], [address] [place] [address] Hemoglobin (Bld) [Mass/Vol] 10.0 g/dL Low 13.0-17.0 [facility] Comment on above: Performed By: #### C BCA, 20075-6, PINR, 07878-8, 84872-7, 70463-7, 04980-9, THYR, 66664-6, CMP, 09466-7, 2156-6 #### [facility] ([id number]) [address] [place] [address] #### HA1C #### [facility] ([id number]) [address], [address] [place] [address] ARGUELLO-JOLLY BODY 1+ Abnormal NONE [facility] Comment on above: Performed By: #### C BCA, 12615-3, PINR, 10237-8, 93386-2, 37561-2, 29219-2, THYR, 45189-7, CMP, 03897-5, 2156-6 #### [facility] ([id number]) [address] [place] [address] #### HA1C #### [facility] ([id number]) [address], [address] [place] [address] HYPOCHROMIA 1+ Abnormal NONE [facility] Comment on above: Performed By: #### C BCA, 53692-3, PINR, 59175-4, 11765-1, 10447-1, 37284-5, THYR, 92713-0, CMP, 35381-6, 2156-6 #### [facility] ([id number]) [address] [place] [address] #### HA1C #### [facility] ([id number]) [address] [place] [address], [address] [place] [address] Lymphocytes (Bld) [#/Vol] 1.9 10*3/uL Normal 1.0-3.5 [facility] Comment on above: Performed By: #### C BCA, 98248-3, PINR, 36543-8, 09261-3, 50586-4, 27401-8, THYR, 71167-2, CMP, 15375-2, 2156- #### [facility] ([id number]) [address] [place] [address] #### HA1C #### [facility] ([id number]) [address] [place] [address], [address] [place] [address] Lymphocytes/100 WBC (Bld) 23.0 % Normal [facility] Comment on above: Performed By: #### C BCA, 65231-3, PINR, 64498-6, 56507-1, 84164-7, 36145-3, THYR, 06257-6, CMP, 09968-8, 2156- #### [facility] ([id number]) [address] [place] [address] #### HA1C #### [facility] ([id number]) [address] [place] [address], [address] [place] [address] MCH (RBC) [Entitic mass] 24.8 pg Low 27-34 [facility] Comment on above: Performed By: #### C BCA, 45538-0, PINR, 29135-8, 72157-4, 64677-7, 36330-2, THYR, 22260-8, CMP, 34418-8, 2157-6 #### [facility] ([id number]) [address] [place] [address] #### HA1C #### [facility] ([id number]) [address] [place] [address], [address] [place] [address] MCHC (RBC) [Mass/Vol] 33.4 g/dL Normal 32-36 [facility] Comment on above: Performed By: #### C BCA, 81907-8, PINR, 66937-9, 05815-6, 31498-8, 13607-8, THYR, 32502-3, CMP, 04316-6, 2156-6 #### [facility] ([id number]) [address] [place] [address] #### HA1C #### [facility] ([id number]) [address] [place] [address], [address] [place] [address] MCV (RBC) [Entitic vol] 74 fL Low 80-100 [facility] Comment on above: Performed By: #### C BCA, 94204-7, PINR, 24287-1, 80025-6, 64812-5, 92830-3, THYR, 27786-0, CMP, 78986-3, 2156-6 #### [facility] ([id number]) [address] [place] [address] #### HA1C #### [facility] ([id number]) [address] [place] [address], [address] [place] [address] Monocytes (Bld) [#/Vol] 0.6 10*3/uL Normal 0-0.9 [facility] Comment on above: Performed By: #### C BCA, 51258-0, PINR, 70088-9, 32548-8, 53214-6, 76083-0, THYR, 37417-5, CMP, 70854-3, 2157-6 #### [facility] ([id number]) [address] [place] [address] #### HA1C #### [facility] ([id number]) [address] [place] [address], [address] [place] [address] Monocytes/100 WBC (Bld) 7.0 % Normal [facility] Comment on above: Performed By: #### C BCA, 28174-1, PINR, 04228-6, 22601-5, 30552-9, 28826-4, THYR, 29571-7, CMP, 75165-2, 2156-12 #### [facility] ([id number]) [address] [place] [address] #### HA1C #### [facility] ([id number]) [address] [place] [address], [address] [place] [address] Neutrophils (Bld) [#/Vol] 5.1 10*3/uL Normal 1.5-6.6 [facility] Comment on above: Performed By: #### C BCA, 40653-5, PINR, 62983-4, 54867-9, 48998-8, 08591-4, THYR, 67376-1, CMP, 59538-8, 2156-12 #### [facility] ([id number]) [address] [place] [address] #### HA1C #### [facility] ([id number]) [address] [place] [address], [address] [place] [address] Platelet mean volume (Bld) [Entitic vol] 10.1 fL Normal 7-12 [facility] Comment on above: Performed By: #### C BCA, 08870-8, PINR, 72537-2, 60521-7, 48798-4, 80109-2, THYR, 90553-5, CMP, 98309-6, 2156-6 #### [facility] ([id number]) [address] [place] [address] #### HA1C #### [facility] ([id number]) [address], [address] [place] [address] Platelets (Bld) [#/Vol] 228 10*3/uL Normal 150-450 [facility] Comment on above: Performed By: #### C BCA, 02325-4, PINR, 10917-4, 47519-4, 34323-9, 17103-1, THYR, 43997-1, CMP, 68353-0, 2157-6 #### [facility] ([id number]) [address] [place] [address] #### HA1C #### [facility] ([id number]) [address], [address] [place] [address] POLYCHROMASIA 1+ Abnormal NONE [facility] Comment on above: Performed By: #### C BCA, 25204-7, PINR, 01573-0, 72353-1, 71478-6, 49295-3, THYR, 15549-3, CMP, 25016-5, 2156-6 #### [facility] ([id number]) [address] [place] [address] #### HA1C #### [facility] ([id number]) [address], [address] [place] [address] RBC COUNT 4.03 X10E12/L Low 4.10-5.70 [facility] Comment on above: Performed By: #### C BCA, 54546-7, PINR, 65743-3, 69180-3, 40437-8, 73427-0, THYR, 64397-9, CMP, 64045-1, 7-6 #### [facility] ([id number]) [facility] [place] [address] #### HA1C #### [facility] ([id number]) [address], [address] [place] [address] SEG NEUTROPHIL 56.0 % Normal [facility] Comment on above: Performed By: #### C BCA, 49210-1, PINR, 42175-9, 07150-0, 07454-4, 54535-4, THYR, 27849-3, CMP, 57175-2, 2157-6 #### [facility] ([id number]) [address] [place] [address] #### HA1C #### [facility] ([id number]) [address] [facility], [address] [place] [address] SPHEROCYTE 1+ Abnormal NONE [facility] Comment on above: Performed By: #### C BCA, 06996-6, PINR, 08124-7, 12948-6, 29202-6, 37017-4, THYR, 36328-1, CMP, 21568-6, 2157-6 #### [facility] ([id number]) [address] [place] [address] #### HA1C #### [facility] ([id number]) [address] [place] [address], [address] [place] [address] TARGET 1+ Abnormal NONE [facility] Comment on above: Performed By: #### C BCA, 00061-1, PINR, 61802-6, 16160-3, 49355-8, 87008-3, THYR, 16270-2, CMP, 90651-2, 2157-6 #### [facility] ([id number]) [address] [place] [address] #### HA1C #### [facility] ([id number]) [address] [place] [address], [address] [place] [address] WBC (Bld) [#/Vol] 8.2 10*3/uL Normal 4.0-11.0 [facility] Comment on above: Performed By: #### C BCA, 72593-8, PINR, 83093-9, 82636-8, 79098-7, 49813-1, THYR, 16095-5, CMP, 73563-7, 2157-6 #### [facility] ([id number]) [address] [place] [address] #### HA1C #### [facility] ([id number]) [address] [facility], [address] [place] [address] CK [Catalytic activity/Vol]o n 01-22-2024 CPK 1221 U/L High 24-195 [facility] Comment on above: Performed By: #### C BCA, 98734-6, PINR, 65543-4, 55380-7, 14923-9, 66488-7, THYR, 84349-0, CMP, 51033-6, 2157-6 #### [facility] ([id number]) [address] [place] [address] #### HA1C #### [facility] ([id number]) [address] [place] [address], [address] [place] [address] CPK 1777 U/L High 24-195 [facility] Comment on above: Performed By: #### C BCA, 76462-2, PINR, 33649-1, 73045-1, 77986-7, 41068-8, THYR, 59302-3, CMP, 04236-3, 2157-6 #### [facility] ([id number]) [address] [place] [address] #### HA1C #### [facility] ([id number]) [address] [facility], [address] [place] [address] CPK 1972 U/L High 24-195 [facility] Comment on above: Performed By: #### C BCA, 77305-7, PINR, 39312-6, 84142-0, 95268-5, 51651-4, THYR, 66736-3, CMP, 52861-6, 2157-6 #### [facility] ([id number]) [address] [place] [address] #### HA1C #### [facility] ([id number]) [address] [place] [address], [address] [place] [address] COMPREHENSIVE METABOLIC PANE [facility] 01-22-2024 Albumin [Mass/Vol] 3.4 g/dL Normal 3.2-5.3 [facility] Comment on above: Performed By: #### C BCA, 51389-3, PINR, 45804-5, 26554-9, 57588-6, 38599-7, THYR, 87164-0, CMP, 80432-6, 2157-6 #### [facility] ([id number]) [address] [place] [address] #### HA1C #### [facility] ([id number]) [address] [place] [address], [address] [place] [address] ALP [Catalytic activity/Vol] 109 U/L Normal 39-130 [facility] Comment on above: Performed By: #### C BCA, 31122-5, PINR, 64062-9, 52603-3, 03353-5, 99671-1, THYR, 69797-1, CMP, 48293-9, 2157-6 #### [facility] ([id number]) [address] [place], [place] [address] #### HA1C #### [facility] ([id number]) [address] [place] [address], [address] [place] [address] ALT [Catalytic activity/Vol] 27 U/L Normal 0-40 [facility] Comment on above: Performed By: #### C BCA, 03844-9, PINR, 35064-7, 41899-0, 62224-9, 91156-0, THYR, 32180-1, CMP, 55043-7, 2157-6 #### [facility] ([id number]) [address] [place], [place] [address] #### HA1C #### [facility] ([id number]) [address], [address] [place] [address] Anion gap [Moles/Vol] 10 mmol/L Normal 5-15 [facility] Comment on above: Performed By: #### C BCA, 83208-3, PINR, 16390-2, 76301-1, 00754-4, 05186-2, THYR, 52395-7, CMP, 54791-3, 2157-6 #### [facility] ([id number]) [address] [place] [address] #### HA1C #### [facility] ([id number]) [address] [facility], [address] [place] [address] AST [Catalytic activity/Vol] 69 U/L High 0-41 [facility] Comment on above: Performed By: #### C BCA, 43460-9, PINR, 41197-0, 08355-1, 30690-9, 23338-6, THYR, 46276-6, CMP, 60590-0, 2156-6 #### [facility] ([id number]) [address] [place] [address] #### HA1C #### [facility] ([id number]) [address] [facility], [address] [place] [address] Bilirubin [Mass/Vol] 0.6 mg/dL Normal 0.3-1.2 [facility] Comment on above: Performed By: #### C BCA, 16309-7, PINR, 39805-5, 22334-3, 84071-5, 88486-2, THYR, 41812-7, CMP, 52471-6, 7-6 #### [facility] ([id number]) [address] [place] [address] #### HA1C #### [facility] ([id number]) [address], [address] [place] [address] Calcium [Mass/Vol] 8.2 mg/dL Low 8.5-10.5 [facility] Comment on above: Performed By: #### C BCA, 87216-8, PINR, 36404-6, 42389-9, 84125-5, 96208-7, THYR, 05261-5, CMP, 75408-4, 2157-6 #### [facility] ([id number]) [address] [place] [address] #### HA1C #### [facility] ([id number]) [address], [address] [place] [address] Chloride [Moles/Vol] 105 mmol/L Normal 98-109 [facility] Comment on above: Performed By: #### C BCA, 76113-0, PINR, 36632-9, 28433-8, 23575-7, 21816-1, THYR, 56882-8, CMP, 37474-1, 7-6 #### [facility] ([id number]) [address] [place] [address] #### HA1C #### [facility] ([id number]) [address], [address] [place] [address] CO2 [Moles/Vol] 20 mmol/L Low 22-32 [facility] Comment on above: Performed By: #### C BCA, 00459-7, PINR, 31814-9, 15270-0, 45917-6, 99276-9, THYR, 24120-0, CMP, 51086-4, 7-6 #### [facility] ([id number]) [address] [place] [address] #### HA1C #### [facility] ([id number]) [address], [address] [place] [address] Creatinine [Mass/Vol] 0.79 mg/dL Normal 0.60-1.30 [facility] Comment on above: Result Comment: METH OD TRACEABLE TO IDMS STANDARD Performed By: #### C BCA, 17032-4, PINR, 21611-0, 94040-7, 84122-5, 51623-6, THYR, 66197-2, CMP, 44855-0, 7-6 #### [facility] ([id number]) [address] [place] [address] #### HA1C #### [facility] ([id number]) [address] [facility], [address] [place] [address] GFR/1.73 sq M.predicted among non-blacks MDRD (S/P/Bld) [Vol rate/Area] 87 mL/min/{1.73_m2} Normal >59 [facility] Comment on above: Result Comment: Reported eGFR is based on the CKD-EPI 2020 equation that does not use a race coefficient. Performed By: #### C BCA, 04768-2, PINR, 16640-7, 20767-9, 50593-7, 75576-9, THYR, 09883-3, CMP, 55142-5, 2156- #### [facility] ([id number]) [address] [place] [address] #### HA1C #### [facility] ([id number]) [address] [facility], [address] [place] [address] Glucose [Mass/Vol] 189 mg/dL High 65-99 [facility] Comment on above: Performed By: #### C BCA, 65083-9, PINR, 08601-4, 95316-0, 21692-5, 88975-9, THYR, 16166-1, CMP, 51427-1, 2156-6 #### [facility] ([id number]) [address] [place] [address] #### HA1C #### [facility] ([id number]) [address] [facility], [address] [place] [address] Potassium [Moles/Vol] 4.3 mmol/L Normal 3.5-5.0 [facility] Comment on above: Performed By: #### C BCA, 68474-1, PINR, 01253-2, 60411-0, 09912-8, 64843-6, THYR, 61938-4, CMP, 99735-2, 2157-6 #### [facility] ([id number]) [address] [place] [address] #### HA1C #### [facility] ([id number]) [address] [facility], [address] [place] [address] Protein [Mass/Vol] 6.1 g/dL Normal 6.0-8.0 [facility] Comment on above: Performed By: #### C BCA, 38027-3, PINR, 13478-2, 66449-6, 13054-7, 22659-7, THYR, 82884-7, CMP, 38930-0, 7-6 #### [facility] ([id number]) [address] [place] [address] #### HA1C #### [facility] ([id number]) [address] [place] [address], [address] [place] [address] Sodium [Moles/Vol] 135 mmol/L Normal 134-146 [facility] Comment on above: Performed By: #### C BCA, 70806-5, PINR, 03137-0, 90100-7, 43398-5, 83159-8, THYR, 70648-2, CMP, 52724-2, 7-6 #### [facility] ([id number]) [address] [place] [address] #### HA1C #### [facility] ([id number]) [address] [place] [address], [address] [place] [address] Urea nitrogen [Mass/Vol] 21 mg/dL Normal 5-27 [facility] Comment on above: Performed By: #### C BCA, 87413-0, PINR, 84137-3, 47799-8, 69881-1, 81785-3, THYR, 04188-5, CMP, 75104-1, 2156-6 #### [facility] ([id number]) [address] [place] [address] #### HA1C #### [facility] ([id number]) [address] [facility], [address] [place] [address] Glucose Glucometer (BldC) [M ass/Vol]on 01-22-2024 Glucose [Mass/Vol] 155 mg/dL High 65-99 [facility] Glucose [Mass/Vol] 238 mg/dL High 65-99 [facility] Glucose [Mass/Vol] 413 mg/dL Critically high 65-99 [facility] [Mass/Vol] 218 mg/dL High 65-99 [facility] Heparin unfractionated Chrom ogenic method Qn (PPP)on 01-22-2024 ANTI XA UFH 0.28 IU/mL Low 0.30-0.70 [facility] Comment on above: Result Comment: Opti mal time for testing is 6 hrs post dosage This test is specific for monitoring patients on UFH, and is not recommended for use with other Anti-Xa medications. Performed By: #### C BCA, 15576-1, PINR, 21778-4, 82133-0, 75426-3, 36098-4, THYR, 12220-4, CMP, 47843-5, 2156- #### [facility] ([id number]) [address] [place] [address] #### HA1C #### [facility] ([id number]) [address] [place] [address], [address] [place] [address] ANTI XA UFH 0.24 IU/mL Low 0.30-0.70 [facility] Comment on above: Result Comment: Opti mal time for testing is 6 hrs post dosage This test is specific for monitoring patients on UFH, and is not recommended for use with other Anti-Xa medications. Performed By: #### C BCA, 02357-5, PINR, 71397-0, 11305-2, 17052-1, 89295-9, THYR, 48039-0, CMP, 27848-0, 2156-6 #### [facility] ([id number]) [address] [place] [address] #### HA1C #### [facility] ([id number]) [address] [facility], [address] [place] [address] ANTI XA UFH 0.23 IU/mL Low 0.30-0.70 [facility] Comment on above: Result Comment: Opti mal time for testing is 6 hrs post dosage This test is specific for monitoring patients on UFH, and is not recommended for use with other Anti-Xa medications. Performed By: #### C BCA, 04681-7, PINR, 77681-4, 62797-8, 55080-0, 83148-8, THYR, 16124-1, CMP, 43351-5, 2156- #### [facility] ([id number]) [address] [place] [address] #### HA1C #### [facility] ([id number]) [address] [facility], [address] [place] [address] Lipid 1996 panelon 4 Cholesterol [Mass/Vol] 97 mg/dL Low 150-200 [facility] Comment on above: Performed By: #### C BCA, 23365-9, PINR, 85526-1, 59678-4, 66651-4, 42564-6, THYR, 95723-9, CMP, 55741-7, 2156-6 #### [facility] ([id number]) [address] [place] [address] #### HA1C #### [facility] ([id number]) [address] [facility], [address] [place] [address] Cholesterol in HDL [Mass/Vol] 50 mg/dL Normal >39 [facility] Comment on above: Result Comment: HDL <40 mg/dL - High Risk HDL > or = 40mg/dL- Desirable HDL >60 mg/dL - Negative Risk Performed By: #### C BCA, 63634-3, PINR, 89651-4, 52791-8, 94902-7, 29387-7, THYR, 26688-9, CMP, 88316-9, 2157-6 #### [facility] ([id number]) [address] [place] [address] #### HA1C #### [facility] ([id number]) [address] [facility], [address] [place] [address] Cholesterol in LDL [Mass/Vol] 39 mg/dL Normal <130 [facility] Comment on above: Result Comment: LDL <100 mg/dL - Desirable LDL >160 mg/dL - High Risk Performed By: #### C BCA, 32149-7, PINR, 25713-9, 91787-6, 53386-2, 17948-7, THYR, 87166-7, CMP, 93364-7, 7-6 #### [facility] ([id number]) [address] [place], [place] [address] #### HA1C #### [facility] ([id number]) [address] [facility], [address] [place] [address] Cholesterol in VLDL [Mass/Vol] 8 mg/dL Normal 0-30 [facility] Comment on above: Performed By: #### C BCA, 25136-5, PINR, 83563-8, 70184-8, 50719-6, 77956-7, THYR, 53248-4, CMP, 92975-1, 2156-6 #### [facility] ([id number]) [address] [place] [address] #### HA1C #### [facility] ([id number]) [address] [place] [address], [address] [place] [address] CHOLESTEROL:HDL 1.9 Normal 1.0-5.0 [facility] Comment on above: Performed By: #### C BCA, 61599-7, PINR, 69693-7, 24084-8, 49750-1, 10957-1, THYR, 36617-8, CMP, 78137-3, 2156-6 #### [facility] ([id number]) [address] [place] [address] #### HA1C #### [facility] ([id number]) [address] [place] [address], [address] [place] [address] Triglyceride [Mass/Vol] 38 mg/dL Normal 27-150 [facility] Comment on above: Performed By: #### C BCA, 83126-1, PINR, 66776-4, 64084-3, 41668-4, 37570-5, THYR, 88034-6, CMP, 34233-6, 2156- #### [facility] ([id number]) [address] [place] [address] #### HA1C #### [facility] ([id number]) [address] [place] [address], [address] [place] [address] MAGNESIUMon 01-22-2024 Magnesium [Mass/Vol] 2.0 mg/dL Normal 1.8-2.6 [facility] Comment on above: Performed By: #### C BCA, 30742-7, PINR, 08403-8, 84928-0, 33459-5, 07506-6, THYR, 57805-8, CMP, 56997-0, 2156-6 #### [facility] ([id number]) [address] [place] [address] #### HA1C #### [facility] ([id number]) [address] [place] [address], [address] [address] Magnesium [Mass/Vol] 2.2 mg/dL Normal 1.8-2.6 [facility] Comment on above: Performed By: #### C BCA, 56941-7, PINR, 74981-4, 94716-3, 46865-6, 19168-4, THYR, 05172-8, CMP, 24913-1, 7-6 #### [facility] ([id number]) [address] [place] [address] #### HA1C #### [facility] ([id number]) [address] [place] [address], [address] [address] Procalcitonin IA [Mass/Vol]o n 01-22-2024 PROCALCITONIN 0.08 ng/mL High <0.05 [facility] Comment on above: Result Comment: NOTE <0.50 ng/mL - Low risk of severe sepsis and/or septic shock. <2.00 ng/mL - Recommend retesting within 6-24 hours. >2.00 ng/mL - High risk of sepsis and/or septic shock. Performed By: #### C BCA, 96393-9, PINR, 05751-8, 01358-7, 45649-6, 72672-9, THYR, 90454-5, CMP, 83585-7, 7-6 #### [facility] ([id number]) [address] [place] [address] #### HA1C #### [facility] ([id number]) [address] [place] [address] Troponin I.cardiac High sens itivity method [Mass/Vol]on 01-22-2024 3 HOUR TROP I, HIGH SENSITIVITY 54 ng/L High <21 [facility] Comment on above: Result Comment: Elevations of hs-Troponin may be due to causes other than myocardial ischemia. Recommend serial hs-Troponin testing be performed. For the initial evaluation and management of chest pain patients, refer to the algorithms linked below. Emergency Patient: [email or web address] Inpatient: [email or web address] uh=[email or web address] Performed By: #### C BCA, 84319-1, PINR, 51765-4, 97599-4, 17753-8, 93901-7, THYR, 97058-4, CMP, 71304-6, 2157-6 #### [facility] ([id number]) [facility] [place] [address] #### HA1C #### [facility] ([id number]) [address] [place] [address], [address] [place] [address] 3 HOUR TROP I, HIGH SENSITIVITY 75 ng/L High <21 [facility] Comment on above: Result Comment: Elevations of hs-Troponin may be due to causes other than myocardial ischemia. Recommend serial hs-Troponin testing be performed. For the initial evaluation and management of chest pain patients, refer to the algorithms linked below. Emergency Patient: [email or web address] Inpatient: [email or web address] uh=[email or web address] Performed By: #### C BCA, 57155-5, PINR, 21293-8, 68922-8, 44447-9, 18612-6, THYR, 42659-7, CMP, 13817-4, 2157-6 #### [facility] ([id number]) [facility] [place] [address] #### HA1C #### [facility] ([id number]) [address] [facility], [address] [place] [address] XR WRIST LT MIN 3 VWSon 01-09 XR WRIST LT MIN 3 VWS XR [...] Cody MD on 01/22/2024 10:33 PM Normal [facility] BLOOD CULTUREon 01-21-2024 Bacteria identified Aer cx Nom (Bld) CULTURE RESULTS NO GROWTH 5 DAYS Normal [facility] Bacteria identified Aer cx Nom (Bld) CULTURE RESULTS NO GROWTH 5 DAYS Normal [facility] CBC AND AUTO DIFFon 01-21-20 24 ABSOLUTE BASOPHIL 0.1 X10E9/L Normal 0.0-0.2 [facility] Comment on above: Performed By: #### C BCA, 78757-5, PINR, 15327-0, 12692-6, 09226-6, 01373-4, THYR, 21377-3, CMP, 48810-6, 2157-6 #### [facility] ([id number]) [address] [place] [address] #### HA1C #### [facility] ([id number]) [address] [facility], [address] [place] [address] ABSOLUTE NEUTROPHIL 7.7 X10E9/L High 1.5-6.6 [facility] Comment on above: Performed By: #### C BCA, 07133-7, PINR, 51354-4, 54237-5, 42039-3, 36305-5, THYR, 74138-2, CMP, 55723-5, 2156-6 #### [facility] ([id number]) [address] [place] [address] #### HA1C #### [facility] ([id number]) [address] [place] [address], [address] [place] [address] Anisocytosis Ql (Bld) 2+ Abnormal NONE [facility] Comment on above: Performed By: #### C BCA, 48525-1, PINR, 03378-1, 78186-0, 71627-9, 07319-4, THYR, 03208-7, CMP, 79627-6, 2156- #### [facility] ([id number]) [address] [place] [address] #### HA1C #### [facility] ([id number]) [address] [place] [address], [address] [place] [address] Basophils/100 WBC (Bld) 0.8 % Normal [facility] Comment on above: Performed By: #### C BCA, 44014-8, PINR, 45245-3, 89311-3, 71704-4, 13147-6, THYR, 05777-7, CMP, 95752-5, 2156- #### [facility] ([id number]) [address] [place] [address] #### HA1C #### [facility] ([id number]) [address] [place] [address], [address] [place] [address] GEO 1+ Abnormal NONE [facility] Comment on above: Performed By: #### C BCA, 05326-2, PINR, 62218-2, 51829-8, 81486-7, 64596-3, THYR, 53302-3, CMP, 16264-5, 2156-12 #### [facility] ([id number]) [address] [place] [address] #### HA1C #### [facility] ([id number]) [address] [place] [address], [address] [place] [address] Eosinophils (Bld) [#/Vol] 0.1 10*3/uL Normal 0.0-0.4 [facility] Comment on above: Performed By: #### C BCA, 82996-4, PINR, 39354-7, 55256-6, 46351-7, 27384-1, THYR, 71954-7, CMP, 56222-8, 2156-12 #### [facility] ([id number]) [address] [place] [address] #### HA1C #### [facility] ([id number]) [address] [place] [address], [address] [place] [address] Eosinophils/100 WBC (Bld) 0.7 % Normal [facility] Comment on above: Performed By: #### C BCA, 39551-5, PINR, 25253-6, 35932-4, 97502-4, 34710-3, THYR, 81165-9, CMP, 99833-3, 2156-12 #### [facility] ([id number]) [address] [place] [address] #### HA1C #### [facility] ([id number]) [address] [place] [address], [address] [place] [address] Erythrocyte distribution width (RBC) [Ratio] 19.9 % High 11.5-15.0 [facility] Comment on above: Performed By: #### C BCA, 73075-6, PINR, 60592-7, 48905-9, 11055-8, 70569-6, THYR, 41185-7, CMP, 33469-2, 2156-12 #### [facility] ([id number]) [address] [place] [address] #### HA1C #### [facility] ([id number]) [address], [address] [place] [address] FRAGMENT 1+ Abnormal NONE [facility] Comment on above: Performed By: #### C BCA, 94017-2, PINR, 84112-4, 21243-3, 90456-0, 54958-9, THYR, 31367-5, CMP, 79107-9, 2157-6 #### [facility] ([id number]) [address] [place] [address] #### HA1C #### [facility] ([id number]) [address], [address] [place] [address] Hematocrit (Bld) [Volume fraction] 31.3 % Low 39-49 [facility] Comment on above: Performed By: #### C BCA, 25270-9, PINR, 07578-5, 72555-1, 03455-8, 26620-5, THYR, 88928-7, CMP, 70812-0, 2156- #### [facility] ([id number]) [address] [place] [address] #### HA1C #### [facility] ([id number]) [address], [address] [place] [address] Hemoglobin (Bld) [Mass/Vol] 10.5 g/dL Low 13.0-17.0 [facility] Comment on above: Performed By: #### C BCA, 92266-9, PINR, 82656-1, 81087-0, 41008-2, 25445-7, THYR, 48590-4, CMP, 64808-4, 2156- #### [facility] ([id number]) [facility] [place] [address] #### HA1C #### [facility] ([id number]) [address], [address] [place] [address] HYPOCHROMIA 1+ Abnormal NONE [facility] Comment on above: Performed By: #### C BCA, 11469-8, PINR, 59786-2, 57898-4, 43027-9, 97009-1, THYR, 96486-8, CMP, 53736-9, 2157-6 #### [facility] ([id number]) [address] [place] [address] #### HA1C #### [facility] ([id number]) [address] [facility], [address] [place] [address] Lymphocytes (Bld) [#/Vol] 1.2 10*3/uL Normal 1.0-3.5 [facility] Comment on above: Performed By: #### C BCA, 41478-2, PINR, 43747-6, 14873-8, 77967-2, 47258-3, THYR, 14098-6, CMP, 35523-8, 2156-6 #### [facility] ([id number]) [address] [place] [address] #### HA1C #### [facility] ([id number]) [address] [facility], [address] [place] [address] Lymphocytes/100 WBC (Bld) 11.9 % Normal [facility] Comment on above: Performed By: #### C HEIDI, 96293-6, PINR, 72009-1, 48596-4, 90163-6, 08415-8, THYR, 49602-0, CMP, 85556-5, 2156-6 #### [facility] ([id number]) [address] [place] [address] #### HA1C #### [facility] ([id number]) [address] [facility], [address] [place] [address] MCH (RBC) [Entitic mass] 24.8 pg Low 27-34 [facility] Comment on above: Performed By: #### C BCA, 86136-2, PINR, 91486-6, 03000-2, 59454-1, 62672-7, THYR, 45679-1, CMP, 70853-8, 7-6 #### [facility] ([id number]) [address] [place] [address] #### HA1C #### [facility] ([id number]) [address] [facility], [address] [place] [address] MCHC (RBC) [Mass/Vol] 33.6 g/dL Normal 32-36 [facility] Comment on above: Performed By: #### C BCA, 82884-3, PINR, 04678-6, 64227-7, 38539-6, 72653-4, THYR, 28024-4, CMP, 65898-6, 2156-6 #### [facility] ([id number]) [address] [place] [address] #### HA1C #### [facility] ([id number]) [address] [facility], [address] [place] [address] MCV (RBC) [Entitic vol] 74 fL Low 80-100 [facility] Comment on above: Performed By: #### C BCA, 39573-0, PINR, 98762-9, 02365-0, 84235-9, 85422-5, THYR, 69814-3, CMP, 70969-4, 2156-6 #### [facility] ([id number]) [address] [place] [address] #### HA1C #### [facility] ([id number]) [address] [facility], [address] [place] [address] Monocytes (Bld) [#/Vol] 1.2 10*3/uL High 0-0.9 [facility] Comment on above: Performed By: #### C BCA, 54773-2, PINR, 94018-0, 01590-4, 39385-2, 57990-7, THYR, 30463-9, CMP, 32022-8, 2157-6 #### [facility] ([id number]) [address] [place] [address] #### HA1C #### [facility] ([id number]) [address], [address] [place] [address] Monocytes/100 WBC (Bld) 12.0 % Normal [facility] Comment on above: Performed By: #### C BCA, 63781-2, PINR, 92778-2, 45167-5, 27873-5, 57211-1, THYR, 01806-7, CMP, 87827-1, 2157-6 #### [facility] ([id number]) [address] [place] [address] #### HA1C #### [facility] ([id number]) [address] [facility], [address] [place] [address] Neutrophils/100 WBC (Bld) 74.6 % Normal [facility] Comment on above: Performed By: #### C BCA, 32903-4, PINR, 65992-0, 35209-1, 18751-8, 57771-8, THYR, 28582-8, CMP, 15537-8, 2156-6 #### [facility] ([id number]) [address] [place] [address] #### HA1C #### [facility] ([id number]) [address], [address] [place] [address] Platelet mean volume (Bld) [Entitic vol] 10.1 fL Normal 7-12 [facility] Comment on above: Performed By: #### C BCA, 83679-8, PINR, 93362-1, 63994-1, 41927-1, 31313-0, THYR, 63606-3, CMP, 06179-0, 2157-6 #### [facility] ([id number]) [address] [place] [address] #### HA1C #### [facility] ([id number]) [address] [facility], [address] [place] [address] Platelets (Bld) [#/Vol] 252 10*3/uL Normal 150-450 [facility] Comment on above: Performed By: #### C BCA, 96749-8, PINR, 80927-6, 60914-8, 80596-6, 87067-0, THYR, 86580-2, CMP, 96258-9, 2157-6 #### [facility] ([id number]) [address] [place] [address] #### HA1C #### [facility] ([id number]) [address] [place] [address], [address] [place] [address] POLYCHROMASIA 1+ Abnormal NONE [facility] Comment on above: Performed By: #### C BCA, 38767-5, PINR, 54296-9, 70246-5, 80596-3, 59552-2, THYR, 00999-7, CMP, 22965-9, 7-6 #### [facility] ([id number]) [address] [place] [address] #### HA1C #### [facility] ([id number]) [address] [place] [address], [address] [place] [address] RBC COUNT 4.24 X10E12/L Normal 4.10-5.70 [facility] Comment on above: Performed By: #### C BCA, 75454-9, PINR, 67658-9, 81408-4, 42689-6, 64275-4, THYR, 78029-1, CMP, 35836-0, 2157-6 #### [facility] ([id number]) [address] [place] [address] #### HA1C #### [facility] ([id number]) [address] [place] [address], [address] [place] [address] [employer] 1+ Abnormal NONE [facility] Comment on above: Performed By: #### C BCA, 68866-6, PINR, 44504-6, 94351-5, 22904-8, 82802-1, THYR, 19279-4, CMP, 72618-1, 2157-6 #### [facility] ([id number]) [facility] [place] [address] #### HA1C #### [facility] ([id number]) [address], [address] [place] [address] WBC (Bld) [#/Vol] 10.3 10*3/uL Normal 4.0-11.0 [facility] Comment on above: Performed By: #### C BCA, 11937-2, PINR, 10513-8, 78966-4, 93092-4, 09328-4, THYR, 51682-3, CMP, 00990-0, 2157-6 #### [facility] ([id number]) [address] [place], [place] [address] #### HA1C #### [facility] ([id number]) [address], [address] [place] [address] CK [Catalytic activity/Vol]o n 01-21-2024 CPK 2760 U/L High 24-195 [facility] Comment on above: Performed By: #### C BCA, 95776-0, PINR, 94752-8, 38823-9, 68917-5, 99287-3, THYR, 58980-6, CMP, 64828-8, 2157-6 #### [facility] ([id number]) [address] [place] [address] #### HA1C #### [facility] ([id number]) [address], [address] [place] [address] CPK 2682 U/L High 24-195 [facility] Comment on above: Performed By: #### C BCA, 20279-7, PINR, 26607-3, 32484-4, 54545-7, 10558-2, THYR, 43536-2, CMP, 08173-6, 2157-6 #### [facility] ([id number]) [address] [place] [address] #### HA1C #### [facility] ([id number]) [address] [place] [address], [address] [place] [address] COMPREHENSIVE METABOLIC PANE [facility] 01-21-2024 Albumin [Mass/Vol] 3.6 g/dL Normal 3.2-5.3 [facility] Comment on above: Performed By: #### C BCA, 62420-5, PINR, 82937-5, 50889-6, 09744-0, 94308-2, THYR, 42857-1, CMP, 57328-9, 2157-6 #### [facility] ([id number]) [address] [place] [address] #### HA1C #### [facility] ([id number]) [address] [place] [address], [address] [place] [address] ALP [Catalytic activity/Vol] 118 U/L Normal 39-130 [facility] Comment on above: Performed By: #### C BCA, 71641-6, PINR, 30353-4, 24373-0, 88729-1, 44953-5, THYR, 02105-1, CMP, 53546-8, 7-6 #### [facility] ([id number]) [address] [place] [address] #### HA1C #### [facility] ([id number]) [address] [place] [address], [address] [place] [address] ALT [Catalytic activity/Vol] 26 U/L Normal 0-40 [facility] Comment on above: Performed By: #### C BCA, 33874-8, PINR, 14053-7, 04882-8, 80435-6, 68622-4, THYR, 86240-2, CMP, 31159-6, 2157-6 #### [facility] ([id number]) [address] [place], [place] [address] #### HA1C #### [facility] ([id number]) [address], [address] [place] [address] Anion gap [Moles/Vol] 9 mmol/L Normal 5-15 [facility] Comment on above: Performed By: #### C BCA, 58694-0, PINR, 06660-8, 34623-9, 52181-1, 99348-9, THYR, 80493-2, CMP, 63367-5, 2156-6 #### [facility] ([id number]) [address] [place] [address] #### HA1C #### [facility] ([id number]) [address], [address] [place] [address] AST [Catalytic activity/Vol] 62 U/L High 0-41 [facility] Comment on above: Performed By: #### C BCA, 33588-0, PINR, 02737-7, 16226-7, 00378-9, 52921-3, THYR, 24314-5, CMP, 44260-0, 2156-6 #### [facility] ([id number]) [address] [place] [address] #### HA1C #### [facility] ([id number]) [address], [address] [place] [address] Bilirubin [Mass/Vol] 0.6 mg/dL Normal 0.3-1.2 [facility] Comment on above: Performed By: #### C BCA, 73404-5, PINR, 30651-2, 46169-5, 76541-9, 95716-5, THYR, 59880-5, CMP, 32030-4, 2157-6 #### [facility] ([id number]) [address] [place] [address] #### HA1C #### [facility] ([id number]) [address] [place] [address], [address] [place] [address] Calcium [Mass/Vol] 8.3 mg/dL Low 8.5-10.5 [facility] Comment on above: Performed By: #### C BCA, 29796-9, PINR, 55187-7, 13824-0, 15725-4, 51459-1, THYR, 09123-1, CMP, 61570-1, 2156- #### [facility] ([id number]) [address] [place] [address] #### HA1C #### [facility] ([id number]) [address] [place] [address], [address] [place] [address] Chloride [Moles/Vol] 102 mmol/L Normal 98-109 [facility] Comment on above: Performed By: #### C BCA, 84724-9, PINR, 47757-6, 94026-9, 99930-7, 54501-4, THYR, 65014-3, CMP, 89883-0, 2156-12 #### [facility] ([id number]) [address] [place] [address] #### HA1C #### [facility] ([id number]) [address] [place] [address], [address] [place] [address] CO2 [Moles/Vol] 22 mmol/L Normal 22-32 [facility] Comment on above: Performed By: #### C BCA, 56335-7, PINR, 96812-4, 30524-8, 23976-1, 41358-9, THYR, 33938-9, CMP, 29661-5, 2156- #### [facility] ([id number]) [address] [place] [address] #### HA1C #### [facility] ([id number]) [address], [address] [place] [address] Creatinine [Mass/Vol] 0.83 mg/dL Normal 0.60-1.30 [facility] Comment on above: Result Comment: METH OD TRACEABLE TO IDMS STANDARD Performed By: #### C BCA, 16615-6, PINR, 54396-9, 38465-2, 24288-0, 48470-4, THYR, 00052-7, CMP, 55032-5, 2156- #### [facility] ([id number]) [address] [place] [address] #### HA1C #### [facility] ([id number]) [address] [facility], [address] [place] [address] GFR/1.73 sq M.predicted among non-blacks MDRD (S/P/Bld) [Vol rate/Area] 85 mL/min/{1.73_m2} Normal >59 [facility] Comment on above: Result Comment: Reported eGFR is based on the CKD-EPI 2020 equation that does not use a race coefficient. Performed By: #### C BCA, 24002-7, PINR, 70753-4, 16645-3, 58454-5, 42028-6, THYR, 12503-6, CMP, 52747-9, 2156- #### [facility] ([id number]) [address] [place] [address] #### HA1C #### [facility] ([id number]) [address], [address] [place] [address] Glucose [Mass/Vol] 270 mg/dL High 65-99 [facility] Comment on above: Performed By: #### C BCA, 96869-4, PINR, 69160-0, 57375-7, 89013-7, 26789-7, THYR, 56452-3, CMP, 74766-3, 2156- #### [facility] ([id number]) [address] [place] [address] #### HA1C #### [facility] ([id number]) [address] [facility], [address] [place] [address] Potassium [Moles/Vol] 4.5 mmol/L Normal 3.5-5.0 [facility] Comment on above: Performed By: #### C BCA, 92433-9, PINR, 35094-8, 61548-1, 27530-0, 66682-0, THYR, 96426-9, CMP, 23689-8, 7-6 #### [facility] ([id number]) [address] [place] [address] #### HA1C #### [facility] ([id number]) [address] [place] [address], [address] [place] [address] Protein [Mass/Vol] 6.4 g/dL Normal 6.0-8.0 [facility] Comment on above: Performed By: #### C BCA, 44971-0, PINR, 61324-3, 28913-2, 97445-6, 48501-3, THYR, 68237-0, CMP, 97378-4, 2156-6 #### [facility] ([id number]) [address] [place] [address] #### HA1C #### [facility] ([id number]) [address] [facility], [address] [place] [address] Sodium [Moles/Vol] 133 mmol/L Low 134-146 [facility] Comment on above: Performed By: #### C BCA, 92399-6, PINR, 92969-0, 20175-0, 11038-2, 16898-9, THYR, 09958-1, CMP, 99402-8, 7-6 #### [facility] ([id number]) [address] [place] [address] #### HA1C #### [facility] ([id number]) [address] [facility], [address] [place] [address] Urea nitrogen [Mass/Vol] 23 mg/dL Normal 5-27 [facility] Comment on above: Performed By: #### C BCA, 30660-7, PINR, 06104-3, 76886-4, 25157-9, 29204-6, THYR, 35874-9, CMP, 15167-5, 2157-6 #### [facility] ([id number]) [address] [place] [address] #### HA1C #### [facility] ([id number]) [address] [facility], [address] [place] [address] CT CTA CHESTon 01-21-2024 CT CTA CHEST [...] Alvarado MD on 01/21/2024 2:10 PM Normal [facility] Fibrin D-dimer DDU (PPP) [Ma ss/Vol]on 01-21-2024 D DIMER 2593 ng/mL DDU High <255 [facility] Comment on above: Result Comment: Results [...] D-Dimer level. Performed By: #### C BCA, 78656-6, PINR, 26925-6, 48513-2, 37443-8, 07364-6, THYR, 28227-9, CMP, 42005-0, 2157-6 #### [facility] ([id number]) [address] [place] [address] #### HA1C #### [facility] ([id number]) [address] [place] [address], [address] [place] [address] Glucose Glucometer (BldC) [M ass/Vol]on 01-21-2024 Glucose [Mass/Vol] 305 mg/dL High 65-99 [facility] Glucose [Mass/Vol] 296 mg/dL High 65-99 [facility] Glucose [Mass/Vol] 266 mg/dL High 65-99 [facility] HGB A1C (GLYCO-HGB)on 2023 Glucose [Mass/Vol] 229 mg/dL Normal [facility] Comment on above: Performed By: #### C BCA, 03180-5, PINR, 08196-8, 57599-8, 41862-7, 35121-9, THYR, 65877-5, CMP, 93092-7, 2157-6 #### [facility] ([id number]) [address] [place] [address] #### HA1C #### [facility] ([id number]) [address] [place] [address], [facility] [address] [place] [address] HbA1c (Bld) [Mass fraction] 9.6 % High 4.4-5.6 [facility] Comment on above: Result Comment: NOTE ADA Guidelines Result HgbA1c Normal : less than 5.7 % Prediabetes : 5.7 % to 6.4 % Diabetes : > 6.4 % Use with caution in patients with abnormal hemoglobin variants as the half-life of red blood cells and in vivo glycation rates are affected. Performed By: #### C BCA, 65827-6, PINR, 97804-0, 32998-7, 42258-1, 02314-2, THYR, 73037-6, CMP, 52909-9, 7-6 #### [facility] ([id number]) [address] [place] [address] #### HA1C #### [facility] ([id number]) [address] [place] [address], [address] [place] [address] Heparin unfractionated Chrom ogenic method Qn (PPP)on 01-21-2024 ANTI XA UFH 0.22 IU/mL Low 0.30-0.70 [facility] Comment on above: Result Comment: Opti mal time for testing is 6 hrs post dosage This test is specific for monitoring patients on UFH, and is not recommended for use with other Anti-Xa medications. Performed By: #### C BCA, 78539-2, PINR, 62869-3, 06301-5, 32062-9, 07325-7, THYR, 22514-0, CMP, 51613-7, 2156- #### [facility] ([id number]) [address] [place] [address] #### HA1C #### [facility] ([id number]) [address] [place] [address], [address] [place] [address] ANTI XA UFH 0.19 IU/mL Low 0.30-0.70 [facility] Comment on above: Result Comment: Opti mal time for testing is 6 hrs post dosage This test is specific for monitoring patients on UFH, and is not recommended for use with other Anti-Xa medications. Performed By: #### C BCA, 20996-5, PINR, 60013-8, 73224-5, 51065-0, 26193-0, THYR, 86488-6, CMP, 46863-9, 2157-6 #### [facility] ([id number]) [address] [place] [address] #### HA1C #### [facility] ([id number]) [address] [place] [address], [address] [place] [address] Lactate (P bobo) [Moles/Vol]o n 01-21-2024 LACTATE W/REFLEX 1.2 mmol/L Normal 0.4-2.0 [facility] Comment on above: Result Comment: Result did not trigger repeat Lactate, re-order if needed. Performed By: #### C BCA, 70481-7, PINR, 25379-2, 35347-6, 50648-6, 88127-5, THYR, 67416-7, CMP, , 2156-12 #### [facility] ([id number]) [address] [place] [address] #### HA1C #### [facility] ([id number]) [address] [place] [address], [address] [address] MAGNESIUMon 01-21-2024 Magnesium [Mass/Vol] 1.6 mg/dL Low 1.8-2.6 [facility] Comment on above: Performed By: #### C BCA, 34265-1, PINR, 79507-5, 01136-7, 26961-8, 41705-9, THYR, 39508-1, CMP, , 2156-12 #### [facility] ([id number]) [address] [place] [address] #### HA1C #### [facility] ([id number]) [address] [place] [address], [address] [place] [address] Natriuretic peptide B [Mass/ Vol]on 01-21-2024 Natriuretic peptide B (Bld) [Mass/Vol] 1320 pg/mL High <100.0 [facility] Comment on above: Performed By: #### C BCA, 63110-4, PINR, 98159-6, 39231-2, 29637-7, 94224-1, THYR, 12523-5, CMP, 53590-4, 2157-6 #### [facility] ([id number]) [facility] [place] [address] #### HA1C #### [facility] ([id number]) [address] [facility], [address] [place] [address] PROTIME AND INRon 01-21-2024 INR Coag (PPP) [Relative time] 1.2 {INR} High 0.8-1.1 [facility] Comment on above: Performed By: #### C BCA, 59950-3, PINR, 68701-7, 37071-8, 23749-6, 62963-0, THYR, 97768-3, CMP, 91814-9, 2156-6 #### [facility] ([id number]) [address] [place], [place] [address] #### HA1C #### [facility] ([id number]) [address] [facility], [address] [place] [address] PT Coag (PPP) [Time] 14.4 s High 9.8-13.2 [facility] Comment on above: Performed By: #### C BCA, 74867-9, PINR, 32959-0, 59057-1, 74020-5, 93243-9, THYR, 78352-2, CMP, 80579-9, 2156-6 #### [facility] ([id number]) [address] [place] [address] #### HA1C #### [facility] ([id number]) [address] [facility], [address] [place] [address] Procalcitonin IA [Mass/Vol]o n 01-21-2024 PROCALCITONIN 0.06 ng/mL High <0.05 [facility] Comment on above: Result Comment: NOTE <0.50 ng/mL - Low risk of severe sepsis and/or septic shock. <2.00 ng/mL - Recommend retesting within 6-24 hours. >2.00 ng/mL - High risk of sepsis and/or septic shock. Performed By: #### C BCA, 21189-3, PINR, 68626-9, 21148-1, 64360-3, 53526-9, THYR, 95276-7, CMP, 72171-0, 2157-6 #### [facility] ([id number]) [address] [place] [address] #### HA1C #### [facility] ([id number]) [address] [place] [address], [address] [place] [address] RESP PATHOGENS/YCRK-CvM-[id number] 01-21-2024 Respiratory pathogens DNA and RNA panel [...] 2 Not detected (qualifier value) NOTE The [employer] Respiratory Panel 2.1 (RP2.1) is a multiplexed [...] other pathogens. The agent(s) detected by the [employer] RP2.1 may not be the definite cause [...] patient with possible respiratory tract infection. Normal [facility] Comment on above: Performed By: #### C BCA, 59734-6, PINR, 00667-0, 50179-6, 11892-8, 75934-7, THYR, 14276-3, CMP, 67482-7, 2157-6 #### [facility] ([id number]) [address] [place] [address] #### HA1C #### [facility] ([id number]) [address] [place] [address], [address] [place] [address] THYROID PROFILEon 01-21-2024 Free T4 [Mass/Vol] 1.04 ng/dL Normal 0.61-1.60 [facility] Comment on above: Performed By: #### C BCA, 15501-1, PINR, 44121-0, 86467-8, 65919-3, 94717-3, THYR, 72476-5, CMP, 88048-1, 2157-6 #### [facility] ([id number]) [address] [place] [address] #### HA1C #### [facility] ([id number]) [address] [facility], [address] [place] [address] TSH 0.70 uIU/mL Normal 0.49-4.67 [facility] Comment on above: Performed By: #### C BCA, 82982-5, PINR, 23204-0, 51447-1, 64475-2, 12984-4, THYR, 04688-8, CMP, 27247-4, 7-6 #### [facility] ([id number]) [address] [place] [address] #### HA1C #### [facility] ([id number]) [address] [facility], [address] [place] [address] Troponin I.cardiac High sens itivity method [Mass/Vol]on 01-21-2024 TROPONIN I, HIGH SENSITIVITY 211 ng/L High <21 [facility] Comment on above: Result Comment: Elevations of hs-Troponin may be due to causes other than myocardial ischemia. Recommend serial hs-Troponin testing be performed. For the initial evaluation and management of chest pain patients, refer to the algorithms linked below. Emergency Patient: [email or web address] uh=[email or web address] Inpatient: [email or web address] uh=acaea Performed By: #### C BCA, 40472-0, PINR, 67745-8, 21012-3, 35899-2, 46490-1, THYR, 36145-0, CMP, 56285-5, 2157-6 #### [facility] ([id number]) [address] [place] [address] #### HA1C #### [facility] ([id number]) [address] [facility], [address] [place] [address] 3 HOUR TROP I, HIGH SENSITIVITY 256 ng/L High <21 [facility] Comment on above: Result Comment: Elevations of hs-Troponin may be due to causes other than myocardial ischemia. Recommend serial hs-Troponin testing be performed. For the initial evaluation and management of chest pain patients, refer to the algorithms linked below. Emergency Patient: [email or web address] uh=[email or web address] Inpatient: [email or web address] uh=[email or web address] Performed By: #### C BCA, 61250-3, PINR, 26172-3, 75213-1, 65562-3, 86614-5, THYR, 55939-7, CMP, 76772-6, 2157-6 #### [facility] ([id number]) [address] [place] [address] #### HA1C #### [facility] ([id number]) [address] [place] [address], [address] [place] [address] XR CHEST 1 VWon 01-21-2024 XR CHEST 1 VW XR CHEST 1 VW History: Congestion EXAM: Chest AP portable upright COMPARISON: None FINDINGS: Cardiac silhouette within normal limits. Mild interstitial prominence. No pneumothorax. No infiltrate or large pleural effusion. IMPRESSION: Mild interstitial edema Finalized by Butch Eaton MD on 01/21/2024 1:38 PM Normal [facility] aPTT Coag (PPP) [Time]on aPTT Coag (Bld) [Time] 54 s High 26-37 [facility] Comment on above: Performed By: #### C BCA, 83999-0, PINR, 26761-2, 92047-7, 96160-6, 17801-5, THYR, 09402-7, CMP, 33443-1, 2157-6 #### [facility] ([id number]) [address] [place] [address] #### HA1C #### [facility] ([id number]) [address] [facility], [address] [place] [address] Glucose Glucometer (BldC) [M ass/Vol]Ordered By: Alberto Shearer on 11-11-2023 Glucose [Mass/Vol] 83 mg/dL [facility] Comment on above: Random Glucose Refer ence Range is dependent on time and content of last meal. Glucose of more than 200 mg/dL in a nonstressed, ambulatory subject supports the diagnosis of Diabetes Mellitus. No Panel InformationOrdered By: Alberto Shearer on 11-11-2023 Bedside Glucose Comment Glu2: cleaned meter [facility] Bedside Glucose #2 Comment Cleaned meter [facility] Glucose Glucometer (BldC) [M ass/Vol]Ordered By: Yomi Flores on 09-27-2023 Glucose [Mass/Vol] 71 mg/dL [facility] Comment on above: Random Glucose Refer ence Range is dependent on time and content of last meal. Glucose of more than 200 mg/dL in a nonstressed, ambulatory subject supports the diagnosis of Diabetes Mellitus. Glucose Glucometer (BldC) [M ass/Vol]Ordered By: Vidya Robert on 09-06-2023 Glucose [Mass/Vol] 268 mg/dL [facility] Comment on above: Random Glucose Refer ence Range is dependent on time and content of last meal. Glucose of more than 200 mg/dL in a nonstressed, ambulatory subject supports the diagnosis of Diabetes Mellitus. No Panel InformationOrdered By: Vidya Robert on 09-06-2023 Bedside Glucose Comment Glu2: cleaned meter [facility] Erythrocyte distribution wid th Auto (RBC) [Ratio]Ordered By: [employer] on 09-05-2023 Erythrocyte distribution width (RBC) [Ratio] 16.7 % 12.0-14.8 [facility] Hematocrit Auto (Bld) [Volum e fraction]Ordered By: [employer] on 09-05-2023 Hematocrit (Bld) [Volume fraction] 22.7 % 38.8-50.0 [facility] Hemoglobin [Mass/volume] in BloodOrdered By: [employer] on 09-05-2023 Hemoglobin (Bld) [Mass/Vol] 7.8 g/dL 13.0-17.0 [facility] Leukocytes [#/volume] correc robert for nucleated erythrocytes in Blood by Automated counOrdered By: [employer] on 09-05-2023 WBC corrected for nucl RBC Auto (Bld) [#/Vol] 9.4 10*3/uL 4.1-10.5 [facility] MCH Auto (RBC) [Entitic mass ]Ordered By: [employer] on 09-05-2023 MCH (RBC) [Entitic mass] 28.7 pg 27.5-35.2 [facility] MCHC Auto (RBC) [Mass/Vol]Or dered By: [employer] on 09-05-2023 MCHC (RBC) [Mass/Vol] 34.1 g/dL 32.5-35.6 [facility] MCV Auto (RBC) [Entitic vol] Ordered By: [employer] on 09-05-2023 MCV (RBC) [Entitic vol] 84.1 fL 83.5-101 [facility] Platelet mean volume Auto (B ld) [Entitic vol]Ordered By: [employer] on 09-05-2023 Platelet mean volume (Bld) [Entitic vol] 9.8 fL 6.6-10.1 [facility] Platelets Auto (Bld) [#/Vol] Ordered By: [employer] on 09-05-2023 Platelets (Bld) [#/Vol] 236 10*3/uL 150-450 [facility] RBC Auto (Bld) [#/Vol]Ordere d By: [employer] on 09-05-2023 RBC (Bld) [#/Vol] 2.70 10*6/uL 3.90-5.60 [facility] Basophils Auto (Bld) [#/Vol] Ordered By: Jeevan Pinzon on 09-04-2023 Basophils (Bld) [#/Vol] 0.0 10*3/uL 0.0-0.2 [facility] Basophils/100 WBC Auto (Bld) Ordered By: Jeevan Pinzon on 09-04-2023 Basophils/100 WBC (Bld) 0.4 % . [facility] Eosinophils Auto (Bld) [#/Vo l]Ordered By: Jeevan Pinzon on 09-04-2023 Eosinophils (Bld) [#/Vol] 0.1 10*3/uL 0.0-0.45 [facility] Eosinophils/100 WBC Auto (Bl d)Ordered By: Jeevan Pinzon on 09-04-2023 Eosinophils/100 WBC (Bld) 0.8 % . [facility] Lymphocytes Auto (Bld) [#/Vo l]Ordered By: Jeevan Pinzon on 09-04-2023 Lymphocytes (Bld) [#/Vol] 1.3 10*3/uL 1.00-4.8 [facility] Lymphocytes/100 WBC Auto (Bl d)Ordered By: Jeevan Pinzon on 09-04-2023 Lymphocytes/100 WBC (Bld) 11.7 % . [facility] Monocytes Auto (Bld) [#/Vol] Ordered By: Jeevan Pinzon on 09-04-2023 Monocytes (Bld) [#/Vol] 1.9 10*3/uL 0.0-0.8 [facility] Monocytes/100 WBC Auto (Bld) Ordered By: Jeevan Pinzon on 09-04-2023 Monocytes/100 WBC (Bld) 17.9 % . [facility] Comment on above: Absolute monocytosis is commonly reactive in nature. However, if unexplained, recommend follow-up CBC in 3 months to evaluate for persistence. Neutrophils Auto (Bld) [#/Vo l]Ordered By: Jeevan Pinzon on 09-04-2023 Neutrophils (Bld) [#/Vol] 7.4 10*3/uL 1.8-7.7 [facility] Neutrophils/100 WBC Auto (Bl d)Ordered By: Jeevan Pinzon on 09-04-2023 Neutrophils/100 WBC (Bld) 69.2 % . [facility] Nucleated erythrocytes [Pres ence] in Blood by Automated countOrdered By: Jeevan Pinzon on 09-04-2023 Nucleated RBC Auto Ql (Bld) 0.2 /100{WBC} 0-0.5 [facility] WBC Auto (Bld) [#/Vol]Ordere d By: Jeevan Pinzon on 09-04-2023 WBC (Bld) [#/Vol] 10.7 10*3/uL 4.1-10.5 [facility] No Panel InformationOrdered By: [employer] on 09-02-2023 Bedside Glucose #2 Comment Will repeat test [facility] Acanthocytes [Presence] in B lood by Light microscopyOrdered By: [employer] on 09-01-2023 Acanthocytes LM Ql (Bld) Slight [facility] Anisocytosis LM Ql (Bld)Orde red By: [employer] on 09-01-2023 Anisocytosis Ql (Bld) Moderate [facility] Band form neutrophils/100 WB C Manual cnt (Bld)Ordered By: [employer] on 09-01-2023 Band form neutrophils/100 WBC (Bld) 4 % 0-5 [facility] Geo cells [Presence] in Blo od by Light microscopyOrdered By: [employer] on 09-01-2023 Geo cells LM Ql (Bld) Slight [facility] Calcium [Mass/volume] in Ser um or PlasmaOrdered By: [employer] on 09-01-2023 Calcium [Mass/Vol] 7.7 mg/dL 8.6-10.3 [facility] Carbon dioxide, total [Moles /volume] in Serum or PlasmaOrdered By: [employer] on 09-01-2023 CO2 [Moles/Vol] 27.3 mmol/L 21.0-31.0 [facility] Chloride [Moles/volume] in S jihan or PlasmaOrdered By: [employer] on 09-01-2023 Chloride [Moles/Vol] 106 mmol/L 98-107 [facility] Creatinine [Mass/volume] in Serum or PlasmaOrdered By: [employer] on 09-01-2023 Creatinine [Mass/Vol] 0.81 mg/dL 0.70-1.30 [facility] Glucose [Mass/volume] in Ser um or PlasmaOrdered By: [employer] on 09-01-2023 Glucose [Mass/Vol] 79 mg/dL 70-100 [facility] Comment on above: ADA recommended refe rence rangeRandom Glucose Reference Range is dependent on time and content of last meal. Glucose of more than 200 mg/dL in a nonstressed, ambulatory subject supports the diagnosis of Diabetes Mellitus. Hypochromia LM Ql (Bld)Order ed By: [employer] on 09-01-2023 Hypochromia Ql (Bld) Moderate [facility] Lymphocytes/100 WBC Manual c nt (Bld)Ordered By: [employer] on 09-01-2023 Lymphocytes/100 WBC (Bld) 9 % 18-42 [facility] Microcytes LM Ql (Bld)Ordere d By: [employer] on 09-01-2023 Microcytes Ql (Bld) Moderate [facility] Monocytes/100 WBC Manual cnt (Bld)Ordered By: [employer] on 09-01-2023 Monocytes/100 WBC (Bld) 7 % 2-11 [facility] No Panel InformationOrdered By: [employer] on 09-01-2023 Estimated GFR (CKD-EPI) > 60.0 mL/Min [facility] Creatinine Clearance (Chem 59.91 [facility] Ovalocyte detectionOrdered B y: [employer] on 09-01-2023 Ovalocytes LM Ql (Bld) Slight [facility] Platelet adequacy [Presence] in Blood by Light microscopyOrdered By: [employer] on 09-01-2023 Platelets LM Ql (Bld) Decreased Normal [facility] Platelet morphology finding [Identifier] in BloodOrdered By: [employer] on 09-01-2023 Platelet morphology finding Nom (Bld) N/A [facility] Platelets Large [Presence] i n Blood by Light microscopyOrdered By: [employer] on 09-01-2023 Platelets Large LM Ql (Bld) Slight [facility] Poikilocytosis [Presence] in Blood by Light microscopyOrdered By: [employer] on 09-01-2023 Poikilocytosis LM Ql (Bld) Moderate [facility] Polychromasia [Presence] in Blood by Light microscopyOrdered By: [employer] on 09-01-2023 Polychromasia LM Ql (Bld) Slight [facility] Potassium [Moles/volume] in Serum or PlasmaOrdered By: [employer] on 09-01-2023 Potassium [Moles/Vol] 3.9 mmol/L 3.5-5.1 [facility] RBC morphologyOrdered By: Jenni Gaming on 09-01-2023 RBC morphology finding Nom (Bld) N/A [facility] Schistocytes [Presence] in B lood by Light microscopyOrdered By: [employer] on 09-01-2023 Schistocytes LM Ql (Bld) [facility] Segmented neutrophils/100 WB C Manual cnt (Bld)Ordered By: [employer] on 09-01-2023 Segmented neutrophils/100 WBC (Bld) 81 % 50-70 [facility] Serum or plasma anion gap de terminationOrdered By: [employer] on 09-01-2023 Anion gap [Moles/Vol] 10.6 mmol/L 6.0-15.0 [facility] Sodium [Moles/volume] in Ser um or PlasmaOrdered By: [employer] on 09-01-2023 Sodium [Moles/Vol] 140 mmol/L 136-145 [facility] Target cellsOrdered By: Gamal Gaming on 09-01-2023 Target cells LM Ql (Bld) [facility] Troponin I.cardiac [Mass/vol ume] in Serum or Plasma by Detection limit <= 0.01 ng/Ordered By: [employer] on 09-01-2023 Troponin I.cardiac DL <= 0.01 ng/mL [Mass/Vol] 779.8 pg/mL 0.0-20.0 [facility] Comment on above: Critical Result : Ca lled to and read back by: EDNA MORALES at: 09/01/2023 06:23:23 by:TANIA Urea nitrogen [Mass/volume] in Serum or PlasmaOrdered By: [employer] on 09-01-2023 Urea nitrogen [Mass/Vol] 37 mg/dL 7-25 [facility] Activated partial thrombopla stin time (aPTT) in [...] coagulation studies. Please contact the laboratory at [phone] for redraw instructions. Anisocytosis LM Ql (Bld)Orde red By: Federico Davis on 07-16-2023 Anisocytosis Ql (Bld) Slight [facility] Basophils Auto (Bld) [#/Vol] Ordered By: Federico Davis on 07-16-2023 Basophils (Bld) [#/Vol] 0.0 10*3/uL 0.0-0.2 [facility] Basophils/100 WBC Auto (Bld) Ordered By: Federico Davis on 07-16-2023 Basophils/100 WBC (Bld) 0.5 % . [facility] Carbon dioxide, total [Moles /volume] in Serum or PlasmaOrdered By: Federico Davis on 07-16-2023 CO2 [Moles/Vol] 26.8 mmol/L 21.0-31.0 [facility] Chloride [Moles/volume] in S jihan or PlasmaOrdered By: Federico Davis on 07-16-2023 Chloride [Moles/Vol] 103 mmol/L 98-107 [facility] Creatinine [Mass/volume] in Serum or PlasmaOrdered By: Federico Davis on 07-16-2023 Creatinine [Mass/Vol] 0.71 mg/dL 0.70-1.30 [facility] Eosinophils Auto (Bld) [#/Vo l]Ordered By: Federico Davis on 07-16-2023 Eosinophils (Bld) [#/Vol] 0.0 10*3/uL 0.0-0.45 [facility] Eosinophils/100 WBC Auto (Bl d)Ordered By: Federico Davis on 07-16-2023 Eosinophils/100 WBC (Bld) 0.3 % . [facility] Erythrocyte distribution wid th Auto (RBC) [Ratio]Ordered By: Federico Davis on 07-16-2023 Erythrocyte distribution width (RBC) [Ratio] 16.5 % 12.0-14.8 [facility] Glucose Glucometer (BldC) [M ass/Vol]Ordered By: Federico Davis on 07-16-2023 Glucose [Mass/Vol] 398 mg/dL [facility] Comment on above: Random Glucose Refer ence Range is dependent on time and content of last meal. Glucose of more than 200 mg/dL in a nonstressed, ambulatory subject supports the diagnosis of Diabetes Mellitus. Hematocrit Auto (Bld) [Volum e fraction]Ordered By: Federico Davis on 07-16-2023 Hematocrit (Bld) [Volume fraction] 33.5 % 38.8-50.0 [facility] Hemoglobin [Mass/volume] in BloodOrdered By: Federico Davis on 07-16-2023 Hemoglobin (Bld) [Mass/Vol] 11.0 g/dL 13.0-17.0 [facility] Hypochromia LM Ql (Bld)Order ed By: Federico Davis on 07-16-2023 Hypochromia Ql (Bld) Marked [facility] INR in Platelet poor plasma by Coagulation assayOrdered By: Federico Davis on 07-16-2023 INR Coag (PPP) [Relative time] 1.1 {INR} [facility] Comment on above: INR Therapeutic Rang e [...] RBC Auto (Bld) [#/Vol] 8.4 10*3/uL 4.1-10.5 [facility] Lymphocytes Auto (Bld) [#/Vo l]Ordered By: Federico Davis on 07-16-2023 Lymphocytes (Bld) [#/Vol] 0.7 10*3/uL 1.00-4.8 [facility] Lymphocytes/100 WBC Auto (Bl d)Ordered By: Federico Davis on 07-16-2023 Lymphocytes/100 WBC (Bld) 8.4 % . [facility] MCH Auto (RBC) [Entitic mass ]Ordered By: Federico Davis on 07-16-2023 MCH (RBC) [Entitic mass] 26.4 pg 27.5-35.2 [facility] MCHC Auto (RBC) [Mass/Vol]Or dered By: Federico Davis on 07-16-2023 MCHC (RBC) [Mass/Vol] 32.8 g/dL 32.5-35.6 [facility] MCV Auto (RBC) [Entitic vol] Ordered By: Federico Davis on 07-16-2023 MCV (RBC) [Entitic vol] 80.4 fL 83.5-101 [facility] Macrocytes LM Ql (Bld)Ordere d By: Federico Davis on 07-16-2023 Macrocytes Ql (Bld) Slight [facility] Monocytes Auto (Bld) [#/Vol] Ordered By: Federico Davis on 07-16-2023 Monocytes (Bld) [#/Vol] 1.3 10*3/uL 0.0-0.8 [facility] Monocytes/100 WBC Auto (Bld) Ordered By: Federico Davis on 07-16-2023 Monocytes/100 WBC (Bld) 15.1 % . [facility] Neutrophils Auto (Bld) [#/Vo l]Ordered By: Federico Davis on 07-16-2023 Neutrophils (Bld) [#/Vol] 6.3 10*3/uL 1.8-7.7 [facility] Neutrophils/100 WBC Auto (Bl d)Ordered By: Federico Davis on 07-16-2023 Neutrophils/100 WBC (Bld) 75.7 % . [facility] No Panel InformationOrdered By: Federico Davis on 07-16-2023 Bedside Glucose Comment Glu2: cleaned meter [facility] Estimated GFR (CKD-EPI) > 60.0 mL/Min [facility] Creatinine Clearance (Chem N/A [facility] Nucleated erythrocytes [Pres ence] in Blood by Automated countOrdered By: Federico Davis on 07-16-2023 Nucleated RBC Auto Ql (Bld) 0.1 /100{WBC} 0-0.5 [facility] Platelet adequacy [Presence] in Blood by Light microscopyOrdered By: Federico Davis on 07-16-2023 Platelets LM Ql (Bld) Normal Normal [facility] Platelet mean volume Auto (B ld) [Entitic vol]Ordered By: Federico Dvais on 07-16-2023 Platelet mean volume (Bld) [Entitic vol] 10.1 fL 6.6-10.1 [facility] Platelet morphology finding [Identifier] in BloodOrdered By: Federico Davis on 07-16-2023 Platelet morphology finding Nom (Bld) N/A [facility] Platelets Auto (Bld) [#/Vol] Ordered By: Federico Davis on 07-16-2023 Platelets (Bld) [#/Vol] 243 10*3/uL 150-450 [facility] Platelets Large [Presence] i n Blood by Light microscopyOrdered By: Federico Davis on 07-16-2023 Platelets Large LM Ql (Bld) Slight [facility] Poikilocytosis [Presence] in Blood by Light microscopyOrdered By: Federico Davis on 07-16-2023 Poikilocytosis LM Ql (Bld) Moderate [facility] Polychromasia [Presence] in Blood by Light microscopyOrdered By: Federico Davis on 07-16-2023 Polychromasia LM Ql (Bld) Moderate [facility] Potassium [Moles/volume] in Serum or PlasmaOrdered By: Federico Davis on 07-16-2023 Potassium [Moles/Vol] 4.2 mmol/L 3.5-5.1 [facility] Prothrombin time (PT)Ordered By: Federico Davis on 07-16-2023 PT Coag (PPP) [Time] 12.3 s 9.0-12.9 [facility] Comment on above: A hematocrit value g reater than 55% may lead to inaccurate results in coagulation testing. Patients having hematocrit values >55% require a special collection tube for coagulation studies. Please contact the laboratory at [phone] for redraw instructions. RBC Auto (Bld) [#/Vol]Ordere d By: Federico Davis on 07-16-2023 RBC (Bld) [#/Vol] 4.17 10*6/uL 3.90-5.60 [facility] RBC morphologyOrdered By: Federico Davis on 07-16-2023 RBC morphology finding Nom (Bld) N/A [facility] Schistocytes [Presence] in B lood by Light microscopyOrdered By: Federico Davis on 07-16-2023 Schistocytes LM Ql (Bld) Slight [facility] Serum or plasma anion gap de terminationOrdered By: Federico Davis on 07-16-2023 Anion gap [Moles/Vol] 12.4 mmol/L 6.0-15.0 [facility] Sodium [Moles/volume] in Ser um or PlasmaOrdered By: Federico Davis on 07-16-2023 Sodium [Moles/Vol] 138 mmol/L 136-145 [facility] Target cellsOrdered By: Federico espino on 07-16-2023 Target cells LM Ql (Bld) Moderate [facility] Urea nitrogen [Mass/volume] in Serum or PlasmaOrdered By: Federico Davis on 07-16-2023 Urea nitrogen [Mass/Vol] 16 mg/dL 7-25 [facility] WBC Auto (Bld) [#/Vol]Ordere d By: Federico Davis on 07-16-2023 WBC (Bld) [#/Vol] 8.4 10*3/uL 4.1-10.5 [facility] Progress Noteson 06-02-2023 Resident Physician In Radiology Authentication Interface Message Text EMERGENCY TRIAGE, TREAT AND TRANSPORT (ET3) DOCUMENTATION OF TELEHEALTH VISIT Date / Time: 06/02/2023929 Name: Giovani Vickers : 1935 SSN: (Not on file) EMS Agency: [facility] [x] Verbal consent obtained [] [...] Completed by: Herminio Weston MD Normal [employer] ECG 12 [place] 05-25-2023 Normal sinus rhythm, anterolateral ST T wave abnormality, abnormal ECG [facility] Work Phone: Glucose Glucometer (BldC) [M ass/Vol]Ordered By: Fredi Medrano on 05-08-2023 Glucose [Mass/Vol] 98 mg/dL [facility] Comment on above: Random Glucose Refer ence Range is dependent on time and content of last meal. Glucose of more than 200 mg/dL in a nonstressed, ambulatory subject supports the diagnosis of Diabetes Mellitus. No Panel InformationOrdered By: Fredi Medrano on 05-08-2023 Bedside Glucose Comment Glu2: cleaned meter [facility] Alanine aminotransferase [En zymatic activity/volume] in Serum or PlasmaOrdered By: Fredi Medrano on 05-04-2023 ALT [Catalytic activity/Vol] 14 U/L 7-52 [facility] Albumin [Mass/volume] in Ser um or Plasma by Bromocresol green (BCG) dye binding methoOrdered By: Fredi Medrano on 05-04-2023 Albumin BCG dye [Mass/Vol] 2.9 g/dL 3.5-5.7 [facility] Alkaline phosphatase [Enzyma tic activity/volume] in Serum or PlasmaOrdered By: Fredi Medrano on 05-04-2023 ALP [Catalytic activity/Vol] 87 U/L 34-104 [facility] Aspartate aminotransferase [ Enzymatic activity/volume] in Serum or PlasmaOrdered By: Fredi Medrano on 05-04-2023 AST [Catalytic activity/Vol] 20 U/L 13-39 [facility] Basophils Auto (Bld) [#/Vol] Ordered By: Fredi Medrano on 05-04-2023 Basophils (Bld) [#/Vol] 0.0 10*3/uL 0.0-0.2 [facility] Basophils/100 WBC Auto (Bld) Ordered By: Fredi Medrano on 05-04-2023 Basophils/100 WBC (Bld) 0.7 % . [facility] Bilirubin.total [Mass/volume ] in Serum or PlasmaOrdered By: Fredi Medrano on 05-04-2023 Bilirubin [Mass/Vol] 0.5 mg/dL 0.3-1.0 [facility] Calcium [Mass/volume] in Ser um or PlasmaOrdered By: Fredi Medrano on 05-04-2023 Calcium [Mass/Vol] 8.0 mg/dL 8.6-10.3 [facility] Carbon dioxide, total [Moles /volume] in Serum or PlasmaOrdered By: Fredi Medrano on 05-04-2023 CO2 [Moles/Vol] 28.0 mmol/L 21.0-31.0 [facility] Chloride [Moles/volume] in S jihan or PlasmaOrdered By: Fredi Medrano on 05-04-2023 Chloride [Moles/Vol] 102 mmol/L 98-107 [facility] Creatinine [Mass/volume] in Serum or PlasmaOrdered By: Fredi Medrano on 05-04-2023 Creatinine [Mass/Vol] 0.61 mg/dL 0.70-1.30 [facility] Eosinophils Auto (Bld) [#/Vo l]Ordered By: Fredi Medrano on 05-04-2023 Eosinophils (Bld) [#/Vol] 0.1 10*3/uL 0.0-0.45 [facility] Eosinophils/100 WBC Auto (Bl d)Ordered By: Fredi Medrano on 05-04-2023 Eosinophils/100 WBC (Bld) 1.5 % . [facility] Erythrocyte distribution wid th Auto (RBC) [Ratio]Ordered By: Fredi Medrano on 05-04-2023 Erythrocyte distribution width (RBC) [Ratio] 16.8 % 12.0-14.8 [facility] Globulin Calc (S) [Mass/Vol] Ordered By: Fredi Medrano on 05-04-2023 Globulin (S) [Mass/Vol] 2.5 g/dL [facility] Glucose [Mass/volume] in Ser um or PlasmaOrdered By: Fredi Medrano on 05-04-2023 Glucose [Mass/Vol] 120 mg/dL 70-100 [facility] Comment on above: ADA recommended refe rence rangeRandom Glucose Reference Range is dependent on time and content of last meal. Glucose of more than 200 mg/dL in a nonstressed, ambulatory subject supports the diagnosis of Diabetes Mellitus. Hematocrit Auto (Bld) [Volum e fraction]Ordered By: Fredi Medrano on 05-04-2023 Hematocrit (Bld) [Volume fraction] 29.3 % 38.8-50.0 [facility] Hemoglobin [Mass/volume] in BloodOrdered By: Fredi Medrano on 05-04-2023 Hemoglobin (Bld) [Mass/Vol] 9.7 g/dL 13.0-17.0 [facility] Leukocytes [#/volume] correc robert for nucleated erythrocytes in Blood by Automated counOrdered By: Fredi Medrano on 05-04-2023 WBC corrected for nucl RBC Auto (Bld) [#/Vol] 7.2 10*3/uL 4.1-10.5 [facility] Lymphocytes Auto (Bld) [#/Vo l]Ordered By: Fredi Medrano on 05-04-2023 Lymphocytes (Bld) [#/Vol] 1.6 10*3/uL 1.00-4.8 [facility] Lymphocytes/100 WBC Auto (Bl d)Ordered By: Fredi Medrano on 05-04-2023 Lymphocytes/100 WBC (Bld) 23.0 % . [facility] MCH Auto (RBC) [Entitic mass ]Ordered By: Fredi Medrano on 05-04-2023 MCH (RBC) [Entitic mass] 27.9 pg 27.5-35.2 [facility] MCHC Auto (RBC) [Mass/Vol]Or dered By: Fredi Medrano on 05-04-2023 MCHC (RBC) [Mass/Vol] 33.0 g/dL 32.5-35.6 [facility] MCV Auto (RBC) [Entitic vol] Ordered By: Fredi Medrano on 05-04-2023 MCV (RBC) [Entitic vol] 84.6 fL 83.5-101 [facility] Monocytes Auto (Bld) [#/Vol] Ordered By: Fredi Medrano on 05-04-2023 Monocytes (Bld) [#/Vol] 0.7 10*3/uL 0.0-0.8 [facility] Monocytes/100 WBC Auto (Bld) Ordered By: Fredi Medrano on 05-04-2023 Monocytes/100 WBC (Bld) 9.9 % . [facility] Neutrophils Auto (Bld) [#/Vo l]Ordered By: Fredi Medrano on 05-04-2023 Neutrophils (Bld) [#/Vol] 4.6 10*3/uL 1.8-7.7 [facility] Neutrophils/100 WBC Auto (Bl d)Ordered By: Fredi Medrano on 05-04-2023 Neutrophils/100 WBC (Bld) 64.9 % . [facility] No Panel InformationOrdered By: Fredi Medrano on 05-04-2023 Estimated GFR (CKD-EPI) > 60.0 mL/Min [facility] Creatinine Clearance (Chem 62.25 [facility] Nucleated erythrocytes [Pres ence] in Blood by Automated countOrdered By: Fredi Medrano on 05-04-2023 Nucleated RBC Auto Ql (Bld) 0.2 /100{WBC} 0-0.5 [facility] Platelet mean volume Auto (B ld) [Entitic vol]Ordered By: Fredi Medrano on 05-04-2023 Platelet mean volume (Bld) [Entitic vol] 8.9 fL 6.6-10.1 [facility] Platelets Auto (Bld) [#/Vol] Ordered By: Fredi Medrano on 05-04-2023 Platelets (Bld) [#/Vol] 218 10*3/uL 150-450 [facility] Potassium [Moles/volume] in Serum or PlasmaOrdered By: Fredi Medrano on 05-04-2023 Potassium [Moles/Vol] 4.6 mmol/L 3.5-5.1 [facility] Prealbumin [Mass/volume] in Serum or PlasmaOrdered By: Fredi Medrano on 05-04-2023 Prealbumin [Mass/Vol] 10.2 mg/dL 17.0-34.0 [facility] Protein [Mass/volume] in Ser um or PlasmaOrdered By: Fredi Medrano on 05-04-2023 Protein [Mass/Vol] 5.4 g/dL 6.4-8.9 [facility] RBC Auto (Bld) [#/Vol]Ordere d By: Fredi Medrano on 05-04-2023 RBC (Bld) [#/Vol] 3.46 10*6/uL 3.90-5.60 [facility] Serum or plasma albumin/glob ulin mass ratioOrdered By: Fredi Medrano on 05-04-2023 Albumin/Globulin [Mass ratio] 1.2 {ratio} [facility] Serum or plasma anion gap de terminationOrdered By: Fredi Medrano on 05-04-2023 Anion gap [Moles/Vol] 8.6 mmol/L 6.0-15.0 [facility] Sodium [Moles/volume] in Ser um or PlasmaOrdered By: Fredi Medrano on 05-04-2023 Sodium [Moles/Vol] 134 mmol/L 136-145 [facility] Urea nitrogen [Mass/volume] in Serum or PlasmaOrdered By: Fredi Medrano on 05-04-2023 Urea nitrogen [Mass/Vol] 22 mg/dL 7-25 [facility] WBC Auto (Bld) [#/Vol]Ordere d By: Fredi Medrano on 05-04-2023 WBC (Bld) [#/Vol] 7.2 10*3/uL 4.1-10.5 [facility] Cholesterol [Mass/volume] in Serum or PlasmaOrdered By: Anat Perez on 05-03-2023 Cholesterol [Mass/Vol] 98 mg/dL 140-200 [facility] Comment on above: Chol less than 200 m g/dl low riskChol 201-239 mg/dl borderline riskChol 240 mg/dl and greater high risk Cholesterol in LDL Calc [Mas s/Vol]Ordered By: Anat Perez on 05-03-2023 Cholesterol in LDL [Mass/Vol] 46 mg/dL 0-100 [facility] Comment on above: LDL ATP III CLASSIFI CATIONLDL less than 100 mg/dL OptimalLDL 100-129 mg/dL Near or above optimalLDL 130-159 mg/dL Borderline highLDL 160-189 mg/dL HighLDL greater than 189 mg/dL Very high Cholesterol in VLDL Calc [Ma ss/Vol]Ordered By: Anat Perez on 05-03-2023 Cholesterol in VLDL [Mass/Vol] 12 mg/dL [facility] Glucose Glucometer (BldC) [M ass/Vol]Ordered By: Humberto Diaz on 05-03-2023 Glucose [Mass/Vol] 388 mg/dL [facility] Comment on above: Random Glucose Refer ence Range is dependent on time and content of last meal. Glucose of more than 200 mg/dL in a nonstressed, ambulatory subject supports the diagnosis of Diabetes Mellitus. Serum or plasma high density lipoprotein (HDL) cholesterol measurementOrdered By: Anat Perez on 05-03-2023 Cholesterol in HDL [Mass/Vol] 39 mg/dL [facility] Comment on above: HDL CHOL ATP-III CLA SSIFICATION Cardiovascular RiskHDL > or equal to 60 mg/dL LOWHDL < 40 mg/dL HIGH Serum or plasma total choles terol/high density lipoprotein (HDL) cholesterol mass ratOrdered By: Anat Perez on 05-03-2023 Cholesterol.total/Chol esterol in HDL [Mass ratio] 2.5 {ratio} <5.0 [facility] Triglyceride [Mass/volume] i n Serum or PlasmaOrdered By: Anat Perez on 05-03-2023 Triglyceride [Mass/Vol] 64 mg/dL 0-149 [facility] Comment on above: TRIG ATP III CLASSIF ICATIONTRIG less than 150 mg/dL NormalTRIG 150-199 mg/dL Borderline highTRIG 200-500 mg/dL High TRIG greater than 500 mg/dL Very highStandard traceable to the Center for Disease Conrtrol and Prevention (CDC) test method. Basophils Auto (Bld) [#/Vol] Ordered By: Sushant Cordon on 05-02-2023 Basophils (Bld) [#/Vol] 0.0 10*3/uL 0.0-0.2 [facility] Basophils/100 WBC Auto (Bld) Ordered By: Sushant Cordon on 05-02-2023 Basophils/100 WBC (Bld) 0.1 % . [facility] Calcium [Mass/volume] in Ser um or PlasmaOrdered By: Sushant Cordon on 05-02-2023 Calcium [Mass/Vol] 8.0 mg/dL 8.6-10.3 [facility] Carbon dioxide, total [Moles /volume] in Serum or PlasmaOrdered By: Sushant Cordon on 05-02-2023 CO2 [Moles/Vol] 30.1 mmol/L 21.0-31.0 [facility] Chloride [Moles/volume] in S jihan or PlasmaOrdered By: Sushant Cordon on 05-02-2023 Chloride [Moles/Vol] 97 mmol/L 98-107 [facility] Creatinine [Mass/volume] in Serum or PlasmaOrdered By: Sushant Cordon on 05-02-2023 Creatinine [Mass/Vol] 0.86 mg/dL 0.70-1.30 [facility] Eosinophils Auto (Bld) [#/Vo l]Ordered By: Sushant Cordon on 05-02-2023 Eosinophils (Bld) [#/Vol] 0.1 10*3/uL 0.0-0.45 [facility] Eosinophils/100 WBC Auto (Bl d)Ordered By: Sushant Cordon on 05-02-2023 Eosinophils/100 WBC (Bld) 0.8 % . [facility] Erythrocyte distribution wid th Auto (RBC) [Ratio]Ordered By: Sushant Cordon on 05-02-2023 Erythrocyte distribution width (RBC) [Ratio] 17.0 % 12.0-14.8 [facility] Glucose [Mass/volume] in Ser um or PlasmaOrdered By: Sushant Cordon on 05-02-2023 Glucose [Mass/Vol] 87 mg/dL 70-100 [facility] Comment on above: ADA recommended refe rence rangeRandom Glucose Reference Range is dependent on time and content of last meal. Glucose of more than 200 mg/dL in a nonstressed, ambulatory subject supports the diagnosis of Diabetes Mellitus. Hematocrit Auto (Bld) [Volum e fraction]Ordered By: Sushant Cordon on 05-02-2023 Hematocrit (Bld) [Volume fraction] 27.8 % 38.8-50.0 [facility] Hemoglobin [Mass/volume] in BloodOrdered By: Sushant Cordon on 05-02-2023 Hemoglobin (Bld) [Mass/Vol] 9.3 g/dL 13.0-17.0 [facility] Leukocytes [#/volume] correc robert for nucleated erythrocytes in Blood by Automated counOrdered By: Sushant Cordon on 05-02-2023 WBC corrected for nucl RBC Auto (Bld) [#/Vol] 8.6 10*3/uL 4.1-10.5 [facility] Lymphocytes Auto (Bld) [#/Vo l]Ordered By: Sushant Cordon on 05-02-2023 Lymphocytes (Bld) [#/Vol] 1.2 10*3/uL 1.00-4.8 [facility] Lymphocytes/100 WBC Auto (Bl d)Ordered By: Sushant Cordon on 05-02-2023 Lymphocytes/100 WBC (Bld) 13.7 % . [facility] MCH Auto (RBC) [Entitic mass ]Ordered By: Sushant Cordon on 05-02-2023 MCH (RBC) [Entitic mass] 28.3 pg 27.5-35.2 [facility] MCHC Auto (RBC) [Mass/Vol]Or dered By: Sushant Cordon on 05-02-2023 MCHC (RBC) [Mass/Vol] 33.6 g/dL 32.5-35.6 [facility] MCV Auto (RBC) [Entitic vol] Ordered By: Sushant Cordon on 05-02-2023 MCV (RBC) [Entitic vol] 84.2 fL 83.5-101 [facility] Monocytes Auto (Bld) [#/Vol] Ordered By: Sushant Cordon on 05-02-2023 Monocytes (Bld) [#/Vol] 1.2 10*3/uL 0.0-0.8 [facility] Monocytes/100 WBC Auto (Bld) Ordered By: Sushant Cordon on 05-02-2023 Monocytes/100 WBC (Bld) 13.5 % . [facility] Neutrophils Auto (Bld) [#/Vo l]Ordered By: Sushant Cordon on 05-02-2023 Neutrophils (Bld) [#/Vol] 6.2 10*3/uL 1.8-7.7 [facility] Neutrophils/100 WBC Auto (Bl d)Ordered By: Sushant Cordon on 05-02-2023 Neutrophils/100 WBC (Bld) 71.9 % . [facility] No Panel InformationOrdered By: Sushant Cordon on 05-02-2023 Bedside Glucose Comment See comment [facility] Comment on above: Glu2: WILL NOTIFY DR /RN Estimated GFR (CKD-EPI) > 60.0 mL/Min [facility] Creatinine Clearance (Chem 59.22 [facility] Nucleated erythrocytes [Pres ence] in Blood by Automated countOrdered By: Sushant Cordon on 05-02-2023 Nucleated RBC Auto Ql (Bld) 0.0 /100{WBC} 0-0.5 [facility] Platelet mean volume Auto (B ld) [Entitic vol]Ordered By: Sushant Cordon on 05-02-2023 Platelet mean volume (Bld) [Entitic vol] 9.3 fL 6.6-10.1 [facility] Platelets Auto (Bld) [#/Vol] Ordered By: Sushant Cordon on 05-02-2023 Platelets (Bld) [#/Vol] 168 10*3/uL 150-450 [facility] Potassium [Moles/volume] in Serum or PlasmaOrdered By: Sushant Cordon on 05-02-2023 Potassium [Moles/Vol] 4.2 mmol/L 3.5-5.1 [facility] RBC Auto (Bld) [#/Vol]Ordere d By: Sushant Cordon on 05-02-2023 RBC (Bld) [#/Vol] 3.29 10*6/uL 3.90-5.60 [facility] Serum or plasma anion gap de terminationOrdered By: Sushant Cordon on 05-02-2023 Anion gap [Moles/Vol] 8.1 mmol/L 6.0-15.0 [facility] Sodium [Moles/volume] in Ser um or PlasmaOrdered By: Sushant Cordon on 05-02-2023 Sodium [Moles/Vol] 131 mmol/L 136-145 [facility] Urea nitrogen [Mass/volume] in Serum or PlasmaOrdered By: Sushant Cordon on 05-02-2023 Urea nitrogen [Mass/Vol] 21 mg/dL 7-25 [facility] WBC Auto (Bld) [#/Vol]Ordere d By: Sushant Cordon on 05-02-2023 WBC (Bld) [#/Vol] 8.6 10*3/uL 4.1-10.5 [facility] Activated partial thrombopla stin time (aPTT) [...] coagulation studies. Please contact the laboratory at [phone] for redraw instructions. INR in Platelet poor plasma by Coagulation assayOrdered By: Anat Perez on 04-30-2023 INR Coag (PPP) [Relative time] 1.3 {INR} [facility] Comment on above: INR Therapeutic Rang e [...] peptide B (Bld) [Mass/Vol] 523.0 pg/mL 5-100 [facility] Prothrombin time (PT)Ordered By: Anat Perez on 04-30-2023 PT Coag (PPP) [Time] 15.6 s 9.0-12.9 [facility] Comment on above: A hematocrit value g reater than 55% may lead to inaccurate results in coagulation testing. Patients having hematocrit values >55% require a special collection tube for coagulation studies. Please contact the laboratory at [phone] for redraw instructions. Troponin I.cardiac [Mass/vol ume] in Serum or Plasma by Detection limit <= 0.01 ng/Ordered By: Anat Perez on 04-30-2023 Troponin I.cardiac DL <= 0.01 ng/mL [Mass/Vol] 53.7 pg/mL 0.0-20.0 [facility] Comment on above: Critical Result : Ca lled to and read back by: STEVEN BYRD at: 04/30/2023 19:24:20 by:[id number] Ferritin [Mass/volume] in Se rum or PlasmaOrdered By: Sushant Cordon on 04-29-2023 Ferritin [Mass/Vol] 41.5 ng/mL 23.9-336.2 [facility] Folate [Mass/volume] in Seru m or PlasmaOrdered By: Sushant Cordon on 04-29-2023 Folate [Mass/Vol] 28.0 ng/mL >5.9 [facility] Comment on above: Folate reference ran ge: >5.9 ng/mlThe WHO technical consultation on folate and vitamin [id number] has determined that folate concentrations lessthan 4 ng/ml are considered deficient. Iron [Mass/volume] in Serum or PlasmaOrdered By: Sushant Cordon on 04-29-2023 Iron [Mass/Vol] 45 ug/dL 50-212 [facility] Iron binding capacity [Mass/ volume] in Serum or PlasmaOrdered By: Sushant Cordon on 04-29-2023 Iron binding capacity [Mass/Vol] 330 ug/dL 255-450 [facility] Iron saturation [Mass Fracti on] in Serum or PlasmaOrdered By: Sushant Cordon on 04-29-2023 Iron saturation [Mass fraction] 13.6 % 20-50 [facility] Magnesium [Mass/volume] in S jihan or PlasmaOrdered By: Sushant Cordon on 04-29-2023 Magnesium [Mass/Vol] 1.9 mg/dL 1.9-2.7 [facility] No Panel InformationOrdered By: Sushant Cordon on 04-29-2023 Bedside Glucose #[address]/rn [facility] Transferrin [Mass/volume] in Serum or PlasmaOrdered By: Sushant Cordon on 04-29-2023 Transferrin [Mass/Vol] 236 mg/dL 203-362 [facility] Vitamin B12 ser/plasOrdered By: Sushant Cordon on 04-29-2023 Cobalamin (Vitamin B12) [Mass/Vol] 626 pg/mL 180-914 [facility] Activated partial thrombopla stin time (aPTT) in [...] coagulation studies. Please contact the laboratory at [phone] for redraw instructions. Alanine aminotransferase [En zymatic activity/volume] in Serum or PlasmaOrdered By: Vinnie Rivas on 04-28-2023 ALT [Catalytic activity/Vol] 34 U/L 7-52 [facility] Albumin [Mass/volume] in Ser um or Plasma by Bromocresol green (BCG) dye binding methoOrdered By: Vinnie Rivas on 04-28-2023 Albumin BCG dye [Mass/Vol] 4.0 g/dL 3.5-5.7 [facility] Alkaline phosphatase [Enzyma tic activity/volume] in Serum or PlasmaOrdered By: Vinnie Rivas on 04-28-2023 ALP [Catalytic activity/Vol] 108 U/L 34-104 [facility] Aspartate aminotransferase [ Enzymatic activity/volume] in Serum or PlasmaOrdered By: Vinnie Rivas on 04-28-2023 AST [Catalytic activity/Vol] 46 U/L 13-39 [facility] Basophils Auto (Bld) [#/Vol] Ordered By: Vinnie Rivas on 04-28-2023 Basophils (Bld) [#/Vol] 0.0 10*3/uL 0.0-0.2 [facility] Basophils/100 WBC Auto (Bld) Ordered By: Vinnie Rivas on 04-28-2023 Basophils/100 WBC (Bld) 0.4 % . [facility] Bilirubin Test strip Ql (U)O rdered By: Vinnie Rivas on 04-28-2023 Bilirubin Ql (U) Negative Negative [facility] Bilirubin.total [Mass/volume ] in Serum or PlasmaOrdered By: Vinnie Rivas on 04-28-2023 Bilirubin [Mass/Vol] 0.3 mg/dL 0.3-1.0 [facility] Calcium [Mass/volume] in Ser um or PlasmaOrdered By: Vinnie Rivas on 04-28-2023 Calcium [Mass/Vol] 9.0 mg/dL 8.6-10.3 [facility] Carbon dioxide, total [Moles /volume] in Serum or PlasmaOrdered By: Vinnie Rivas on 04-28-2023 CO2 [Moles/Vol] 30.4 mmol/L 21.0-31.0 [facility] Chloride [Moles/volume] in S jihan or PlasmaOrdered By: Vinnie Rivas on 04-28-2023 Chloride [Moles/Vol] 101 mmol/L 98-107 [facility] Color Auto (U)Ordered By: Juan F Rivas on 04-28-2023 Color (U) Yellow Yellow [facility] Creatinine [Mass/volume] in Serum or PlasmaOrdered By: Vinnie Rivas on 04-28-2023 Creatinine [Mass/Vol] 0.71 mg/dL 0.70-1.30 [facility] Eosinophils Auto (Bld) [#/Vo l]Ordered By: Vinnie Rivas on 04-28-2023 Eosinophils (Bld) [#/Vol] 0.0 10*3/uL 0.0-0.45 [facility] Eosinophils/100 WBC Auto (Bl d)Ordered By: Vinnie Rivas on 04-28-2023 Eosinophils/100 WBC (Bld) 0.5 % . [facility] Erythrocyte distribution wid th Auto (RBC) [Ratio]Ordered By: Vinnie Rivas on 04-28-2023 Erythrocyte distribution width (RBC) [Ratio] 18.0 % 12.0-14.8 [facility] Fructosamine [Moles/volume] in Serum or PlasmaOrdered By: Sushant Cordon on 04-28-2023 Fructosamine [Moles/Vol] 565 umol/L 0-285 [facility] Comment on above: Published reference interval for apparently healthysubjects between age 20 and 60 is 205 - 285 umol/L and in apoorly controlled diabetic population is 228 - 563 umol/Lwith a mean of 396 umol/L.Performed at: [employer] Director: Arturo Boles PhD, Phone: [phone] Globulin Calc (S) [Mass/Vol] Ordered By: Vinnie Rivas on 04-28-2023 Globulin (S) [Mass/Vol] 3.2 g/dL [facility] Glucose Glucometer (BldC) [M ass/Vol]Ordered By: Sushant Cordon on 04-28-2023 Glucose [Mass/Vol] 137 mg/dL [facility] Comment on above: Random Glucose Refer ence Range is dependent on time and content of last meal. Glucose of more than 200 mg/dL in a nonstressed, ambulatory subject supports the diagnosis of Diabetes Mellitus. Glucose [Mass/volume] in Ser um or PlasmaOrdered By: Vinnie Rivas on 04-28-2023 Glucose [Mass/Vol] 124 mg/dL 70-100 [facility] Comment on above: ADA recommended refe [...] from glycated hemoglobin (Bld) [Mass/Vol] 309 mg/dL [facility] Hematocrit Auto (Bld) [Volum e fraction]Ordered By: Vinnie Rivas on 04-28-2023 Hematocrit (Bld) [Volume fraction] 34.8 % 38.8-50.0 [facility] Hemoglobin A1c percentageOrd ered By: Sushant Cordon on 04-28-2023 HbA1c (Bld) [Mass fraction] 12.4 % 4.3-5.6 [facility] Comment on above: Increased risk for d iabetes: 5.7 - 6.4diabetes: >6.4glycemic control for adults with diabetes: <7.0 Hemoglobin [Mass/volume] in BloodOrdered By: Vinnie Rivas on 04-28-2023 Hemoglobin (Bld) [Mass/Vol] 11.5 g/dL 13.0-17.0 [facility] INR in Platelet poor plasma by Coagulation assayOrdered By: Vinnie Rivas on 04-28-2023 INR Coag (PPP) [Relative time] 1.0 {INR} [facility] Comment on above: INR Therapeutic Rang e [...] 04-28-2023 Ketones (U) [Mass/Vol] Negative Negative Fi [facility] Leukocytes [#/volume] correc robert for nucleated erythrocytes in Blood by Automated counOrdered By: Vinnie Rivas on 04-28-2023 WBC corrected for nucl RBC Auto (Bld) [#/Vol] 9.7 10*3/uL 4.1-10.5 [facility] Lymphocytes Auto (Bld) [#/Vo l]Ordered By: Vinnie Rivas on 04-28-2023 Lymphocytes (Bld) [#/Vol] 1.4 10*3/uL 1.00-4.8 [facility] Lymphocytes/100 WBC Auto (Bl d)Ordered By: Vinnie Rivas on 04-28-2023 Lymphocytes/100 WBC (Bld) 14.8 % . [facility] MCH Auto (RBC) [Entitic mass ]Ordered By: Vinnie Rivas on 04-28-2023 MCH (RBC) [Entitic mass] 28.0 pg 27.5-35.2 [facility] MCHC Auto (RBC) [Mass/Vol]Or dered By: Vinnie Rivas on 04-28-2023 MCHC (RBC) [Mass/Vol] 33.2 g/dL 32.5-35.6 [facility] MCV Auto (RBC) [Entitic vol] Ordered By: Vinnie Rivas on 04-28-2023 MCV (RBC) [Entitic vol] 84.3 fL 83.5-101 [facility] Monocyte distribution width [Entitic volume] in Blood by AutomatedOrdered By: Vinnie Rivas on 04-28-2023 Monocyte distribution width Auto (Bld) [Entitic vol] 18.61 % 0.00-20.00 [facility] Monocytes Auto (Bld) [#/Vol] Ordered By: Vinnie Rivas on 04-28-2023 Monocytes (Bld) [#/Vol] 0.9 10*3/uL 0.0-0.8 [facility] Monocytes/100 WBC Auto (Bld) Ordered By: Vinnie Rivas on 04-28-2023 Monocytes/100 WBC (Bld) 9.3 % . [facility] Natriuretic peptide B [Mass/ Vol]Ordered By: Vinnie Rivas on 04-28-2023 Natriuretic peptide B (Bld) [Mass/Vol] 665.0 pg/mL 5-100 [facility] Neutrophils Auto (Bld) [#/Vo l]Ordered By: Vinnie Rivas on 04-28-2023 Neutrophils (Bld) [#/Vol] 7.3 10*3/uL 1.8-7.7 [facility] Neutrophils/100 WBC Auto (Bl d)Ordered By: Vinnie Rivas on 10-18-2023 Neutrophils/100 WBC (Bld) 75.0 % . [facility] Nitrite Test strip Ql (U)Ord ered By: Vinnie Rivas on 04-28-2023 Nitrite Ql (U) Negative Negative [facility] No Panel InformationOrdered By: Vinnie Rivas on 04-28-2023 Estimated GFR (CKD-EPI) > 60.0 mL/Min [facility] Creatinine Clearance (Chem 60.38 [facility] Nucleated erythrocytes [Pres ence] in Blood by Automated countOrdered By: Vinnie Rivas on 04-28-2023 Nucleated RBC Auto Ql (Bld) 0.1 /100{WBC} 0-0.5 [facility] Platelet mean volume Auto (B ld) [Entitic vol]Ordered By: Vinnie Rivas on 04-28-2023 Platelet mean volume (Bld) [Entitic vol] 9.3 fL 6.6-10.1 [facility] Platelets Auto (Bld) [#/Vol] Ordered By: Vinnie Rivas on 04-28-2023 Platelets (Bld) [#/Vol] 206 10*3/uL 150-450 [facility] Potassium [Moles/volume] in Serum or PlasmaOrdered By: Vinnie Rivas on 04-28-2023 Potassium [Moles/Vol] 4.9 mmol/L 3.5-5.1 [facility] Protein Auto test strip (U) [Mass/Vol]Ordered By: Vinnie Rivas on 04-28-2023 Protein (U) [Mass/Vol] Negative Negative [facility] Protein [Mass/volume] in Ser um or PlasmaOrdered By: Vinnie Rivas on 04-28-2023 Protein [Mass/Vol] 7.2 g/dL 6.4-8.9 [facility] Prothrombin time (PT)Ordered By: Vinnie Rivas on 04-28-2023 PT Coag (PPP) [Time] 11.8 s 9.0-12.9 [facility] Comment on above: A hematocrit value g reater than 55% may lead to inaccurate results in coagulation testing. Patients having hematocrit values >55% require a special collection tube for coagulation studies. Please contact the laboratory at [phone] for redraw instructions. RBC Auto (Bld) [#/Vol]Ordere d By: Vinnie Rivas on 04-28-2023 RBC (Bld) [#/Vol] 4.12 10*6/uL 3.90-5.60 [facility] Serum or plasma albumin/glob ulin mass ratioOrdered By: Vinnie Rivas on 04-28-2023 Albumin/Globulin [Mass ratio] 1.3 {ratio} [facility] Serum or plasma anion gap de terminationOrdered By: Vinnie Rivas on 04-28-2023 Anion gap [Moles/Vol] 9.5 mmol/L 6.0-15.0 [facility] Sodium [Moles/volume] in Ser um or PlasmaOrdered By: Vinnie Rivas on 04-28-2023 Sodium [Moles/Vol] 136 mmol/L 136-145 [facility] Specific gravity Auto test s trip (U) [Rel density]Ordered By: Vinnie Rivas on 04-28-2023 Specific gravity (U) [Rel density] 1.009 1.001-1.03 0 [facility] Troponin I.cardiac [Mass/vol ume] in Serum or Plasma by Detection limit <= 0.01 ng/Ordered By: Vinnie Rivas on 04-28-2023 Troponin I.cardiac DL <= 0.01 ng/mL [Mass/Vol] 38.3 pg/mL 0.0-20.0 [facility] Urea nitrogen [Mass/volume] in Serum or PlasmaOrdered By: Vinnie Rivas 04-28-2023 Urea nitrogen [Mass/Vol] 15 mg/dL 7-25 [facility] Urine clarity by refractomet ry automatedOrdered By: Vinnie Rivas on 04-28-2023 Clarity Refractometry automated (U) Clear Clear [facility] Urine glucose measurement by automated test strip (mass/volume)Ordered By: Vinnie Rivas on 04-28-2023 Glucose Auto test strip (U) [Mass/Vol] Normal mg/dL Normal [facility] Urine hemoglobin detection b y automated test stripOrdered By: Vinnie Rivas on 04-28-2023 Hemoglobin Auto test strip Ql (U) Negative Negative [facility] Urine leukocyte esterase det ection by automated test stripOrdered By: Vinnie Rivas on 04-28-2023 Leukocyte esterase Auto test strip Ql (U) Negative Negative [facility] Urobilinogen Auto test strip (U) [Mass/Vol]Ordered By: Vinnie Rivas on 04-28-2023 Urobilinogen (U) [Mass/Vol] Normal mg/dL Normal [facility] WBC Auto (Bld) [#/Vol]Ordere d By: Vinnie Rivas on 04-28-2023 WBC (Bld) [#/Vol] 9.7 10*3/uL 4.1-10.5 [facility] pH Auto test strip (U)Ordere d By: Vinnie Rivas on 04-28-2023 pH (U) 6.5 [pH] 5.0-9.0 [facility] Coding Summaryon 04-26-2023 Coding Summary HTMLBase 64 CggpwthxATj6pCp+PGhlYWQ+P A1UNPVgF25lbBBbrS9dH8PJAW lOSywgQVBQTElOSyIgbmFtZT1 kaXNjZXJu IC8+OI4sFYGpIigxxWFaw0Z5i RR6L62czp1iLJjcaNM0OEEyHe Ezvrsrz9umsMa6XLjzBfjcXpA t MRMzzZ77CDN4qL31Lb97iEArp XObj0fviKc2BqDzFMMtBUV8aA wgTMdwu6FoRKYhY35ndKMqv2V 6 CQOwiUvnpZFuLlFijIX7tA1cW Ojvkwojc8psxtgzSfr8qg93mU Ksk3C6rOZ7O6WryhJ6MPKkkCG g FaebsAVClY0lfvuzv2mobwycX xKyFMZxHFo4QAc9ORVewOmfUt FlOS39UFN8XBQixoNkF9HzDVM s xRvhHnD5x1Q1Sv7HY8LYQpqbV 1VNTUFSWTwvdGQ+ST55ry87K7 KpCuitEbv4REMbOCS1uJC4dO0 n HCTnCRkwa0X9hYH3K0UxzvOxw k7pv5lnTSOrQWwwJ64axNVzx4 P9YNYugEX4QINghMtgTwMbyQ1 3 Oyc+QIVfgZysw8ZkZxfah5vrk 9lxmSu4QyokHGNatoGyeJbfYO B3c5YmQp1lCHMegQU9eRX8cY2 i MaYqLvA7KCwlJ581GrBauTJfZ iluV70hX7PbyBL+ZHKiGin7ML AenUdtJA7oO5ZuVJTmosfwqRH m bEwyRU2kIJJathrcOZFuiA8pO VUpP3j1OeZaLlO1JYrvG1BpOU DmlrueOi92dF2wYjBwWfL9LRb u F3HpedT6VFYdwETeETceZVJ2U 99ux7E3EIXuMNMrRVQ0rLQ4hM 1hbGlnbjogbGVmdDsgdmVydGl j YDypWYvdD230JZPanFmqUgGdE GluZyBEYXRlOiAgMTAvMTYvMj AyMzwvdGQ+VOLjHGW4dTopRIQ n nGSoSNieJm4rdKlwgBiiXB9iE BVwaomrUPJcwP7pUGJqnLNgvE uwSG4iSILweuxsk872RjWcHYY 0 PGDcwJHoX1AqwB4uExIeMWYtG GChZ1DprPIcIIlcY230ZYbgUx V6IEWjppSdM2KbKCQooJdzAvS 0 b5V7Qh9Db2CkhrbmN8EppIJiV pZyRnbiREc8F6ToZmfvqWP+PC 75FRAyHK52VOs8XSS5qMrqNDq i IEFeD3VmlF2sDsKsLNDhDIHuA yc+PHRhYmxlIHdpZHRoPScxMD LvAuSyeRxwZX9ySo8wWCMmSKY v eDbohHEaPfZgv6wyHMDlTNrlT D8sdIfjX9ObmCG6BICvq1q2Hu 31U21aE8BnuIJ+FELgrVB9qYX 0 rU9oTfLfOuR7TQjcF407HjIwg SPkHiwgk0jbh1lvoOb0JrV4BG HcquGunZkfRLR4b2LhWi17M14 s IHdpZHRoPSIxNSUiIHZhbGlnb z4tkT7hVm2+LFThhVL0cZT2rC 9xNkLdQbN2BRzfB583XrGmeJE v Xvgti4isl4afqXw5UxZbHEIak xJsbByhVGT5u4LgMe40C3YlwY pln4MdSof4kx75yZScv2A2tKW 9 U2JkUWEwgkscmWPejHfyLQ5jD RMgelxgIKVwaQ1lWMRcB4m9Am ZuSiO2FXscK1TagoQ7ICJqnYL g EERnzMKHfX0nlupzm3egrdldQ eKsPRMrRNa2SPw2OPQdpZbrXp CiDFE4MkH5FMH3rFAguE0chNa n lxurxM8aQne+WAV0oOMteOJSM X5mAqpjlUU+RLQvUCW6dGkcZN yuQFApoD9eBPArJ2z1SmBlPiZ 1 LWliP9YgniF9OQBjuCFqJXUcy NOXrG3rnsmzu9xtkazoHiKxFM LjPAu5PKy0EMNudBwxVkUzSLW 0 AlJ1CRG2wOFblS2gbOjkzwbdm G9wOyc+DibbdRcmRXL6OPv3E2 SvDpx1XWBxqPybIA4xrBUyFIr u Fg9tlWhkrUiiPK8eVYKfxpbcf 766RrNxe8tdTDSjtSTgAGtgPU E6F63wn7T3ATJvZJVlDWB0mBX 4 oK1dwGzadxlafANhvGdixkOog DizQHkdZAonF005DCEcgAoxWa XpKRm6Y3ZlIna8IXFrdKfhPQ6 n eSMfOMhuMo5cnMesfXzvHX2aU TSupbyss376WnIgb9jbFBNmeO TyKVicGJY9W67df3N3KHDtRCG w OQR8aLM7bH5prYmcekbtcYRlq DuqqkUdsEknARvoJOmmK726YU UthHswBbAttGd1F7JvAwe0XJA z cQukQY3kgBXmCEjwPj9bqScnr HvhPA4tVCOfgsdyf872EwBfz9 khCUWkwARsRWvgUWF1S30lk7Z 6 FJFgOWWpZLV5aIV2rJ7wmRvoz jogbGVmdDsgdmVydGljYWwtYW dmM721DXUxuVtiDxEojZtdcrX g PAonQRt9V2RlWdomoQA+PC90Y SFyLQ21mIEnzSJmj1aylRn5Uu FdZZOuPVS3lZjgWAbgm9RgIYQ t F70upPSmf3Z1IANcwDlldTQgJ uYosAV9cX7kLOjnsnhrg1skqv hkXbgkl8uykg08nJ12E42cCDn p FPWmFPReCXJyVQUzeIliqr1nk G9wIi8+PFJnsBW0oCB9vH3tDY HcXdE7MFakC892BdCsuTReJtb j j5iiv5fjyPb7EaX3MWEhwrFas EfiWHR1i3JsKz90L66eCHgpQC XaNPUvSKEqKZQkoShaop6dnQ0 w Ii8+LCTgxNH2xSV5yH8vSyTbR dB5LRlwF590OgKdiINgAscuC5 8oA3LlmFN+VFPlEtg8XOCncJk s DF4vvMYcPBqkFv6eZXU2NiHyD nOuYUzdX1PmMLXwqswibfisiB B9VCQaYRFcqP58Jj9kyXthQIR w oFTLiO8ptbiyd8qzjvseUrVwV YNdVIz9PMz6DZYfrLgfWeXwOE H9ZzS7TFT5qERrsB8jtAgfwvd g hV9tL1BdXFMdkrywEf52fA7pE cKgHzU3IKksQhf+U9SBZw5XJS PJVQ6XFFzwMyqxhSA+PHRkIHN 0 nFsrFPeyBMGowC0hPTRvC3z8A jZwKdG1BYdjZ0BqSWOiuntdBp 27mF2wVbMbCzR1VMxpW5DaiyV 6 OPMmxYAdUTkjOSM0B60rx0S0U MRwWZPdDGH5nGQ6zY2arWjhdg ogbGVmdDsgdmVydGljYWwtYWx p M305AECqnHusNcG8GiCrPtY7P sc1A5FsVzq0OJFqoPlaJN2mfL GbNRtzBa5ngMpjyPfvOT0eIRE p efrpUQPclD2rBCRhrNHotPwsW H9tSUSvpnrmd247DkSfREH5DY CzbJBtH0DadI2vCqMuKPTkSUG w K5LwcYOnYScdD323IOhuFkT8R KVdibWmI2QaNFLbbPtaNiB8m3 E0Cn70SdWBGMBejrxnuKL+PHR k XEX7pQeePKuvYZQngU4xQRDoZ 7d7DiCxExY8PIhpP2LvRTWfjq qlAa84lZ8fNaJzOtA4AUyvY8H v gdB0EYHskDQfDSaiERM1L98qq 0S3JXKyGKWmGPD9aQX5sJ2rmM lnbjogbGVmdDsgdmVydGljYWw t NOtmW261FCRswHqqRy1PDUU3G 9JzNrn8FUWelAtbGS7xzNNeSK umMx3fkDgimDcyKL8mBNUbmhs w UFQplL3bIYWdkEFhdZwlBT2zN QAcbgwxh525WyKbYGE5MWSjdJ SvP6JgeE8iCwLmXZEfWTUcJ1E l gZIuRKcnS086YWbzVmZ2BKJci lMxO0SwYJApfThiDsK4b8V7Pz 5PUDwvdGQ+GJ91yf72I8NxMqh l Jnt5ZZJgXVG5gIX1wF5gDJZnO Nmbs5T4vBJ0I5CckzZazm3bf3 ksMROvCZgzP54geUVzy1Q7VWS t iLF0GFTnhSpzPdHlrW20Xnk+P CUuzCcll6TmGevtc8kgk7dnpK h6AkLcPJPiisPieQanZOZ8b9W i Bp47T49jBGyrIIQrDPUcEHMaB LGhtLvxan9qtU7eOa1+PGNvbC O3iBT1rS9gEpGaDxQ0AUyjU33 9 MfWgeCMmHlukg7fqq6tzaXw1D sJsRHPchjWmuMbaDVL6v5GsOo 34F6GxsIyqg4TfBeb1fa98yMG g i5W2aNZ7B6KlTYYtaezzsXHlh AhhZR6nDKUnmkamUKWwzF5fJP MsR2y2IgOfJiU8NGogR3OqxfY 6 TSMooVMeTKVyqRRBzW5hsieel 7fsobbxMmNbXTVnBDa6HWe5WI BrqJahXhPrUTQ7ViI8PPF3wPP h iY6cvXsthkvdzC9cMgm+UGh5c 0zyjEWaUZ0teWC3OF94SJ76jR Zjf8Q5xQG4E9XgBUVukctgntz n pUZ0UBTmVJPwyC65Xx5vtEgeR l1eDZGdGBL5OLFmvVKcT9NiuE 5aGqYdJQVcWEYsG9CypUDqOOx p A957JNyxKbR7SSJmdpGtC7FyW UPciSajStJ5f6R9Ot6ZTR12OE 38SP75wTJcz4I6rME3W0BjBXF p ugullpaxoYF5WYJrQRVjpY22X l7vgYtcSw4pGUDcSKD8YGZomR JtC4OlyM9rXnAlGURjWSVzD3O l yIGkSLqhC237NSruOcN0DRGdh qFpG5CrOFDknPujCgK6s0C3Gw 6YHj75EF62DX21mORcb7Z2hMY 9 T8BzRYOlixpaccokiPU9XKImW JJguB77Km3yuUxgNo3vREXqFJ N0LILohEKiA1JgvQ2rNvCcNVX w QZKgX1KfePMxEUdbA777EYhtI yI6WPUafpItH4ZgCOBvjOxgBm M4x6R2Yd5RWEuhmsz6J0WfAkg v dHI+WP82GGQgZW46sTZfjCIhg 7wwtBd0YdOaXNSjXJI2lUnaWU uvg5ZrDMToU26hsZEqz7J1DYZ v bGx (more content not included)... Normal [facility] Consent Formson 04-26-2023 Consent Forms [id number] F [facility] BUN/Creat Ratioon 04-23-2023 eGFR Non AA >60 Invalid Interpretation Code [facility] Comment on above: Performed By: #### 1 [id number] #### [facility] (DEFAULT) [address] [place] [address] 13030 eGFR AA >60 Invalid Interpretation Code [facility] Comment on above: Performed By: #### 1 [id number] #### [facility] (DEFAULT) [address] [place] [address] Creatinine [Mass/Vol] 0.69 mg/dL Low 0.90-1.[address] [facility] Comment on above: Performed By: #### 1 [id number] #### [facility] (DEFAULT) [address] [place] [address]30 Urea nitrogen [Mass/Vol] 14 mg/dL Normal 8-26 [facility] Comment on above: Performed By: #### 1 [id number] #### [facility] (DEFAULT) [address] [place] [address] Urea nitrogen/Creatinine [Mass ratio] 20.2 mg/mg High 4.6-16.2 [facility] Comment on above: Performed By: #### 1 [id number] #### [facility] (DEFAULT) [address] [place] [address] CT Urogramon 04-23-2023 CT Urogram CLINICAL HISTORY: [...] MD 04/23/23 3:17 pm Technologist: DARYA MANN [facility] Provider Orderson 04-21-2023 Provider Orders [id number] IFF [facility] Provider Orderson 03-16-2023 Provider Orders [id number] FF [facility] UA RANDOMon 06-05-2022 Bilirubin Ql (U) Negative Normal NEGATIVE [facility] Comment on above: Performed By: #### C MP, LIPID #### [facility] [address] [place] [address] Dr. Kylee Bunch Clarity (U) CLEAR Normal CLEAR [facility] Comment on above: Performed By: #### C MP, LIPID #### [facility] [address] [place] [address] Dr. Kylee Bunch Color (U) YELLOW Normal YELLOW [facility] Comment on above: Performed By: #### C MP, LIPID #### [facility] [address] [place] [address] Dr. Kylee Bunch Glucose Ql (U) Negative Normal NEGATIVE [facility] Comment on above: Performed By: #### C MP, LIPID #### [facility] [address] [place] [address] Dr. Kylee Bunch Hemoglobin Ql (U) TRACE-INTACT Abnormal NEGATIVE [facility] Comment on above: Performed By: #### C MP, LIPID #### [facility] [address] [place], [place] [id number] Dr. Kylee Bunch Ketones Ql (U) TRACE Abnormal NEGATIVE [facility] Comment on above: Performed By: #### C MP, LIPID #### [facility] [address] [place] [address] Dr. Kylee Bunch LEUKOCYTES Negative Normal NEGATIVE [facility] Comment on above: Performed By: #### C MP, LIPID #### [facility] [address] [place] [address] Dr. Kylee Bunch Nitrite Ql (U) Negative Normal NEGATIVE [facility] Comment on above: Performed By: #### C MP, LIPID #### [facility] [address] [place] [address] Dr. Kylee Bunch pH (U) 5.5 [pH] Normal 5-9 [facility] Comment on above: Performed By: #### C MP, LIPID #### [facility] [address] [place] [address] Dr. Kylee Bunch SPEC GRAVITY >=1.030 Abnormal 1.005-<=1. 025 [facility] Comment on above: Performed By: #### C MP, LIPID #### [facility] [address] [place] [address] Dr. Kylee Bunch UA PROTEIN Negative Normal NEGATIVE/ TRACE [facility] Comment on above: Performed By: #### C MP, LIPID #### [facility] [address] [place] [address] Dr. Kylee Bunch Urobilinogen Qn (U) 0.2 {Gemini'U}/dL Normal 0.2 - 1. 0 [facility] Comment on above: Performed By: #### C MP, LIPID #### [facility] [address] [place] [address] Dr. Kylee Bunch CBC AUTO DIFFon 05-14-2022 BASO # 0.0 103/ul Normal 0.0-0.1 [facility] Comment on above: Performed By: #### C MP, LIPID #### [facility] [address] [place] [address] Dr. Kylee Bunch Basophils/100 WBC (Bld) 0.7 % Normal 0.2-2.0 [facility] Comment on above: Performed By: #### C MP, LIPID #### [facility] [address] [place] [address] Dr. Kylee Bunch EO # 0.1 103/ul Normal 0.0-0.7 [facility] Comment on above: Performed By: #### C MP, LIPID #### [facility] [address] [place] [address] Dr. Kylee Bunch Eosinophils/100 WBC (Bld) 2.6 % Normal 0.9-7.0 [facility] Comment on above: Performed By: #### C MP, LIPID #### [facility] [address] [place] [address] Dr. Kylee Bunch Erythrocyte distribution width (RBC) [Ratio] 17.2 % Critically high 11.0-15.0 [facility] Comment on above: Performed By: #### C MP, LIPID #### [facility] [address] [place] [address] Dr. Kylee Bunch Hematocrit (Bld) [Volume fraction] 36.1 % Critically low 42.0-54.0 [facility] Comment on above: Performed By: #### C MP, LIPID #### [facility] [address] [place] [address] Dr. Kylee Bunch Hemoglobin (Bld) [Mass/Vol] 12.1 g/dL Critically low 14.0-18.0 [facility] Comment on above: Performed By: #### C MP, LIPID #### [facility] [address] [place] [address] Dr. Kylee Bunch IG # 0.01 10e3/ul Normal 0.00-0.03 [facility] Comment on above: Performed By: #### C MP, LIPID #### [facility] [address] [place] [address] Dr. Kylee Bunch IG % 0.2 % Normal 0.0-0.5 [facility] Comment on above: Performed By: #### C MP, LIPID #### [facility] [address] [place] [address] Dr. Kylee Bunch LYMPH # 1.7 103/ul Normal 1.2-3.8 [facility] Comment on above: Performed By: #### C MP, LIPID #### [facility] [address] [place] [address] Dr. Kylee Bunch Lymphocytes/100 WBC (Bld) 30.9 % Normal 20.5-60.0 [facility] Comment on above: Performed By: #### C MP, LIPID #### [facility] [address] [place] [address] Dr. Kylee Bunch MANUAL DIFF REQ NO Normal [facility] Comment on above: Performed By: #### C MP, LIPID #### [facility] [address] [place] [address] Dr. Kylee Bunch MCH (RBC) [Entitic mass] 27.4 pg Normal 25.9-34.0 [facility] Comment on above: Performed By: #### C MP, LIPID #### [facility] [address] [place] [address] Dr. Kylee Bunch MCHC (RBC) [Mass/Vol] 33.5 g/dL Normal 29.9-35.2 [facility] Comment on above: Performed By: #### C MP, LIPID #### [facility] [address] [place] [address] Dr. Kylee Bunch MCV (RBC) [Entitic vol] 81.9 fL Normal 80.0-94.0 [facility] Comment on above: Performed By: #### C MP, LIPID #### [facility] [address] [place] [address] Dr. Kylee Bunch MONO # 0.7 103/ul Normal 0.3-0.8 [facility] Comment on above: Performed By: #### C MP, LIPID #### [facility] [address] [place] [address] Dr. Kylee Bunch Monocytes/100 WBC (Bld) 12.9 % Critically high 1.7-12.0 [facility] Comment on above: Performed By: #### C MP, LIPID #### [facility] [address] [place] [address] Dr. Kylee Bunch NEUT # 2.9 103/ul Normal 1.4-6.5 [facility] Comment on above: Performed By: #### C MP, LIPID #### [facility] [address] [address] [address] Kylee Bunch Neutrophils/100 WBC (Bld) 52.7 % Normal 43.0-75.0 [facility] Comment on above: Performed By: #### C MP, LIPID #### [facility] [address] [address] [address] Kylee Bunch PLT 213 103/ul Normal 150-450 [facility] Comment on above: Performed By: #### C MP, LIPID #### [facility] [address] [address] [address] Kylee Bunch RBC 4.41 106/ul Critically low 4.70-6.10 [facility] Comment on above: Performed By: #### C MP, LIPID #### [facility] [address] [place] [address] Dr. Kylee Bunch WBC 5.4 103/ul Normal 4.0-11.0 [facility] Comment on above: Performed By: #### C MP, LIPID #### [facility] [address] [place] [address] Dr. Kylee Bunch LIPID PROFILEon 05-14-2022 CHOL-HDL RATIO NORM SEE BELOW Normal [facility] Comment on above: Result Comment: 3.3 - 4.4 LOW RISK 4.4 - 7.1 AVERAGE RISK 7.1 - 11.0 MODERATE RISK >11.0 HIGH RISK Performed By: #### C MP, LIPID #### [facility] [address] [place] [address] Dr. Kylee Bunch Cholesterol [Mass/Vol] 166 mg/dL Normal <=200 [facility] Comment on above: Performed By: #### C MP, LIPID #### [facility] [address] [place] [address] Dr. Kylee Bunch Cholesterol in HDL [Mass/Vol] 71 mg/dL Critically high 40-60 [facility] Comment on above: Performed By: #### C MP, LIPID #### [facility] [address] [address] [address] Kylee Bunch Cholesterol in LDL [Mass/Vol] 84.8 mg/dL Normal [facility] Comment on above: Performed By: #### C MP, LIPID #### [facility] [address] [address] [address] Kylee Bunch Cholesterol.total/Chol esterol in HDL [Mass ratio] 2.3 {ratio} Normal [facility] Comment on above: Performed By: #### C MP, LIPID #### [facility] [address] [place] [address] Dr. Kylee Bunch HDL NORMAL > or = 60 mg/dl - LO W CARDIOVASCULAR RISK <40 mg/dl - HIGH CARDIOVASCULAR RISK Normal [facility] Comment on above: Performed By: #### C MP, LIPID #### [facility] [address] [place] [address] Dr. Kylee Bunch LDL CALC NORMAL SEE BELOW Normal [facility] Comment on above: Result Comment: <100 mg/dl OPTIMAL 100 - 129 mg/dl NEAR OR ABOVE OPTIMAL 130 - 159 mg/dl BORDERLINE HIGH 160 - 189 mg/dl HIGH >190 mg/dl VERY HIGH Performed By: #### C MP, LIPID #### [facility] [address] [place] [address] Dr. Kylee Bunch Triglyceride [Mass/Vol] 51 mg/dL Normal <=150 [facility] Comment on above: Performed By: #### C MP, LIPID #### [facility] [address] [place] [address] Dr. Kylee Bunch VLDL CALC 10.2 mg/dL Normal [facility] Comment on above: Performed By: #### C MP, LIPID #### [facility] [address] [place] [address] Dr. Kylee Bunch MICROALBUMIN, RAND URon 11-0 mALB 3.0 mg/L Normal <=30.0 [facility] Comment on above: Performed By: #### M ALBR #### [facility] [address] [place] [address] Dr. Kylee Bunch PROF 14(COMP METB)on 022 Albumin [Mass/Vol] 3.5 g/dL Normal 3.4-5.0 [facility] Comment on above: Performed By: #### C MP, LIPID #### [facility] [address] [address] [address] Kylee Bunch Albumin/Globulin [Mass ratio] 1.0 {ratio} Normal [facility] Comment on above: Performed By: #### C MP, LIPID #### [facility] [address] [place] [address] Dr. Kylee Bunch ALP [Catalytic activity/Vol] 97 U/L Normal 46-116 [facility] Comment on above: Performed By: #### C MP, LIPID #### [facility] [address] [place] [address] Dr. Kylee Bunch ALT [Catalytic activity/Vol] 29 U/L Normal 16-63 [facility] Comment on above: Performed By: #### C MP, LIPID #### [facility] [address] [place] [address] Dr. Kylee Bunch Anion gap [Moles/Vol] 6.7 mmol/L Normal [facility] Comment on above: Performed By: #### C MP, LIPID #### [facility] [address] [place] [address] Dr. Kylee Bunch AST [Catalytic activity/Vol] 28 U/L Normal 15-37 [facility] Comment on above: Performed By: #### C MP, LIPID #### [facility] [address] [place] [address] Dr. Kylee Bunch Bilirubin [Mass/Vol] 0.4 mg/dL Normal 0.2-1.0 [facility] Comment on above: Performed By: #### C MP, LIPID #### [facility] [address] [address] [address] Kylee Bunch Calcium [Mass/Vol] 8.9 mg/dL Normal 8.5-10.1 [facility] Comment on above: Performed By: #### C MP, LIPID #### [facility] [address] [address] [address] Kylee Bunch Chloride [Moles/Vol] 99 mmol/L Normal 98-107 [facility] Comment on above: Performed By: #### C MP, LIPID #### [facility] [address] [place] [address] Dr. Kylee Bunch CO2 [Moles/Vol] 33.4 mmol/L Critically high 21.0-32.0 [facility] Comment on above: Performed By: #### C MP, LIPID #### [facility] [address] [place] [address] Dr. Kylee Bunch Creatinine [Mass/Vol] 0.80 mg/dL Normal 0.70-1.30 [facility] Comment on above: Performed By: #### C MP, LIPID #### [facility] [address] [place] [address] Dr. Kylee Bunch EGFR-AF AUSTRIAN >60 Normal >=60 [facility] Comment on above: Performed By: #### C MP, LIPID #### [facility] [address] [place] [address] Dr. Kylee Bunch EGFR-NON AF AUSTRIAN >60 Normal >=60 [facility] Comment on above: Performed By: #### C MP, LIPID #### [facility] [address] [place] [address] Dr. Kylee Bunch Globulin (S) [Mass/Vol] 3.4 g/dL Normal [facility] Comment on above: Performed By: #### C MP, LIPID #### [facility] [address] [place] [address] Dr. Kylee Bunch Glucose [Mass/Vol] 188 mg/dL Critically high 74-106 [facility] Comment on above: Performed By: #### C MP, LIPID #### [facility] [address] [place] [address] Dr. Kylee Bunch Potassium [Moles/Vol] 4.1 mmol/L Normal 3.5-5.1 [facility] Comment on above: Performed By: #### C MP, LIPID #### [facility] [address] [place] [address] Dr. Kylee Bunch Protein [Mass/Vol] 6.9 g/dL Normal 6.4-8.2 [facility] Comment on above: Performed By: #### C MP, LIPID #### [facility] [address] [place] [address] Dr. Kylee Bunch Sodium [Moles/Vol] 135 mmol/L Critically low 136-145 [facility] Comment on above: Performed By: #### C MP, LIPID #### [facility] [address] [place] [address] Dr. Kylee Bunch Urea nitrogen [Mass/Vol] 15.0 mg/dL Normal 7.0-18.0 [facility] Comment on above: Performed By: #### C MP, LIPID #### [facility] [address] [place] [address] Dr. Kylee Bunch Urea nitrogen/Creatinine [Mass ratio] 18.8 mg/mg Normal [facility] Comment on above: Performed By: #### C MP, LIPID #### [facility] [address] [place] [address] Dr. Kylee Bunch UA RANDOM W/MICROSCOPICon BACTERIA NONE SEEN Normal NONE SEEN [facility] Comment on above: Performed By: #### C MP, LIPID #### [facility] [address] [place] [address] Dr. Kylee Bunch Bilirubin Ql (U) Negative Normal NEGATIVE [facility] Comment on above: Performed By: #### C MP, LIPID #### [facility] [address] [place] [address] Dr. Kylee Bunch CAST NONE SEEN Normal NONE SEEN [facility] Comment on above: Performed By: #### C MP, LIPID #### [facility] [address] [place] [address] Dr. Kylee Bunch Clarity (U) CLEAR Normal CLEAR [facility] Comment on above: Performed By: #### C MP, LIPID #### [facility] [address] [place] [address] Dr. Kylee Bunch Color (U) LT. YELLOW Normal YELLOW [facility] Comment on above: Performed By: #### C MP, LIPID #### [facility] [address] [place] [address] Dr. Kylee Bunch Crystals LM Nom (Urine sed) NONE SEEN Normal NONE SEEN [facility] Comment on above: Performed By: #### C MP, LIPID #### [facility] [address] [place] [address] Dr. Kylee Bunch Epithelial cells LM Ql (Urine sed) FEW Abnormal NONE SEEN /RARE [facility] Comment on above: Performed By: #### C MP, LIPID #### [facility] [address] [place] [address] Dr. Kylee Bunch Glucose Ql (U) Negative Normal NEGATIVE [facility] Comment on above: Performed By: #### C MP, LIPID #### [facility] [address] [place] [address] Dr. Kylee Bunch Hemoglobin Ql (U) TRACE-LYSED Abnormal NEGATIVE [facility] Comment on above: Performed By: #### C MP, LIPID #### [facility] [address] [place] [address] Dr. Kylee Bunch Ketones Ql (U) Negative Normal NEGATIVE [facility] Comment on above: Performed By: #### C MP, LIPID #### [facility] [address] [place] [address] Dr. Kylee Bunch LEUKOCYTES Negative Normal NEGATIVE [facility] Comment on above: Performed By: #### C MP, LIPID #### [facility] [address] [place] [address] Dr. Kylee Bunch MUCOUS NONE SEEN Normal NONE SEEN [facility] Comment on above: Performed By: #### C MP, LIPID #### [facility] [address] [place] [address] Dr. Kylee Bunch Nitrite Ql (U) Negative Normal NEGATIVE [facility] Comment on above: Performed By: #### C MP, LIPID #### [facility] [address] [place] [address] Dr. Kylee Bunch pH (U) 6.0 [pH] Normal 5-9 [facility] Comment on above: Performed By: #### C MP, LIPID #### [facility] [address] [place] [address] Dr. Kylee Bunch RBC 2-5 Abnormal 0-2 [facility] Comment on above: Performed By: #### C MP, LIPID #### [facility] [address] [place] [address] Dr. Kylee Bunch SPEC GRAVITY 1.020 Normal 1.005-<=1. 025 [facility] Comment on above: Performed By: #### C MP, LIPID #### [facility] [address] [place] [address] Dr. Kylee Bunch UA PROTEIN Negative Normal NEGATIVE/ TRACE [facility] Comment on above: Performed By: #### C MP, LIPID #### [facility] [address] [place] [address] Dr. Kylee Bunch Urobilinogen Qn (U) 0.2 {Gemini'U}/dL Normal 0.2 - 1. 0 [facility] Comment on above: Performed By: #### C MP, LIPID #### [facility] [address] [place] [address] Dr. Kylee Bunch WBC NONE SEEN Normal NONE SEEN [facility] Comment on above: Performed By: #### C MP, LIPID #### [facility] [address] [place] [address] Dr. Kylee Bunch Basic Metab w/rfx MGon 01-07 (cont.) Normal [facility] Comment on above: Result Comment: Aver age GFR for 70 or more years old: 75 mL/min/1.73sq m Chronic Kidney Disease: <60 mL/min/1.73sq m Kidney failure: <15 mL/min/1.73sq m eGFR calculated using average adult body mass. Additional eGFR calculator available at: http://www.[address] [address] [employer]/multiple_crcl_2012.htm Performed By: #### C DP, MELVIN, BMPX, MG, IPF #### [place] [address] [employer]er: Francisco J Fonseca MD Anion gap [Moles/Vol] 9 mmol/L Normal 9-17 [facility] Comment on above: Performed By: #### C DP, MELVIN, BMPX, MG, IPF #### [facility] [address] [place] [phone] [employer]er: Francisco J Fonseca MD Calcium [Mass/Vol] 7.8 mg/dL Low 8.6-10.4 [facility] Comment on above: Performed By: #### C DP, MELVIN, BMPX, MG, IPF #### [facility] [address] [place] [address] [employer]er: Francisco J Fonseca MD Chloride [Moles/Vol] 102 mmol/L Normal 98-107 [facility] Comment on above: Performed By: #### C DP, MELVIN, BMPX, MG, IPF #### [facility] [address] [place] [phone] [employer]er: Francisco J Fonseca MD CO2 [Moles/Vol] 24 mmol/L Normal 20-31 [facility] Comment on above: Performed By: #### C DP, MELVIN, BMPX, MG, IPF #### [facility] [address] [place] [phone] [employer]er: Francisco J Fonseca MD Creatinine [Mass/Vol] 0.49 mg/dL Low 0.70-1.20 [facility] Comment on above: Performed By: #### C DP, MELVIN, BMPX, MG, IPF #### [facility] [address] [place] [phone] [employer]er: Francisco J Fonseca MD GFR, Amer >60 Normal >[address] [facility] Comment on above: Performed By: #### C DP, MELVIN, BMPX, MG, IPF #### [facility] [address] [place] [phone] [employer]er: Francisco J Fonseca MD GFR,non Amer >60 Normal >60 [facility] Comment on above: Performed By: #### C DP, MELVIN, BMPX, MG, IPF #### [facility] [address] [place] [phone] [employer]er: Francisco J Fonseca MD Glucose [Mass/Vol] 79 mg/dL Normal 70-99 [facility] Comment on above: Performed By: #### C DP, MELVIN, BMPX, MG, IPF #### [place] [address] [employer]er: Francisco J Fonseca MD Potassium [Moles/Vol] 3.5 mmol/L Low 3.7-5.3 [facility] Comment on above: Performed By: #### C DP, MELVIN, BMPX, MG, IPF #### [place] [address] [employer]er: Francisco J Fonseca MD Sodium [Moles/Vol] 135 mmol/L Normal 135-144 [facility] Comment on above: Performed By: #### C DP, MELVIN, BMPX, MG, IPF #### [place] [address] [employer]er: Francisco J Fonseca MD Urea nitrogen [Mass/Vol] 7 mg/dL Low 8-23 [facility] Comment on above: Performed By: #### C DP, MELVIN, BMPX, MG, IPF #### [place] [address] [employer]er: Francisco J Fonseca MD CBC with Diffon 01-07-2022 Abs. Basophil 0.00 k/uL Normal 0.0-0.2 [facility] Comment on above: Performed By: #### C DP #### [facility] [address] [place] [address] [employer]er: Francisco J Fonseca MD Abs.Imm.Granulocyte 0.00 k/uL Normal 0.00-0.30 [facility] Comment on above: Performed By: #### C DP #### [address] [address] [employer] Buyer: Francisco J Fonseca MD Abs.Neutrophil (Seg) 8.33 k/uL High 1.8-7.7 [facility] Comment on above: Performed By: #### C DP #### [address] [address] [employer] Buyer: Francisco J Fonseca MD Eosinophils (Bld) [#/Vol] 0.11 10*3/uL Normal 0.0-0.4 [facility] Comment on above: Performed By: #### C DP #### [address] [address] [employer] Buyer: Francisco J Fonseca MD Lymphocytes (Bld) [#/Vol] 1.22 10*3/uL Normal 1.0-4.8 [facility] Comment on above: Performed By: #### C DP #### [address] [address] [employer] Buyer: Francisco J Fonseca MD Monocytes (Bld) [#/Vol] 1.44 10*3/uL High 0.1-0.8 [facility] Comment on above: Performed By: #### C DP #### [address] [address] [employer] Buyer: Francisco J Fonseca MD Neutrophil (Seg) 75 % High 36-[address] [facility] Comment on above: Performed By: #### C DP #### [address] [address] [employer]er: Francisco J Fonseca MD NRBC Automated 0.0 per 100 WBC Normal 0.0 [facility] Comment on above: Performed By: #### C DP #### [address] [address] [employer]er: Francisco J Fonseca MD WBC (Bld) [#/Vol] 11.1 10*3/uL Normal 3.5-11.3 [facility] Comment on above: Performed By: #### C DP #### [address] [address] [employer]er: Francisco J Fonseca MD Basophils/100 WBC (Bld) 0 % Normal 0-2 [facility] Comment on above: Performed By: #### C DP #### [address] [address] [employer]er: Francisco J Fonseca MD Eosinophils/100 WBC (Bld) 1 % Normal 1-4 [facility] Comment on above: Performed By: #### C DP #### [address] [address] [employer]er: Francisco J Fonseca MD Immature granulocytes/100 WBC (Bld) 0 % Normal 0 [facility] Comment on above: Performed By: #### C DP #### [address] [address] [employer]er: Francisco J Fonseca MD Lymphocytes/100 WBC (Bld) 11 % Low 24-44 [facility] Comment on above: Performed By: #### C DP #### [address] [address] [employer]er: Francisco J Fonseca MD Monocytes/100 WBC (Bld) 13 % High 1-7 [facility] Comment on above: Performed By: #### C DP #### [address] [address] [employer]er: Francisco J Fonseca MD Morphology Walter (Bld) [Interp] ANISOCYTOSIS PRESENT Normal [facility] Comment on above: Result Comment: MICR OCYTOSIS PRESENT 1+ TARGET CELLS 1+ ACANTHOCYTES Performed By: #### C DP #### [address] [address] [employer] Buyer: Francisco J Fonseca MD Erythrocyte distribution width (RBC) [Ratio] 17.3 % High 11.8-14.4 [facility] Comment on above: Performed By: #### C DP #### [address] [address] [employer]er: Francisco J Fonseca MD Hematocrit (Bld) [Volume fraction] 36.6 % Low 40.7-50.3 [facility] Comment on above: Performed By: #### C DP #### [address] [address] [employer]er: Francisco J Fonseca MD Hemoglobin (Bld) [Mass/Vol] 13.0 g/dL Normal 13.0-17.0 [facility] Comment on above: Performed By: #### C DP #### [address] [address] [employer]er: Francisco J Fonseca MD MCH (RBC) [Entitic mass] 26.5 pg Normal 25.2-33.5 [facility] Comment on above: Performed By: #### C DP #### [address] [address] [employer] Buyer: Francisco J Fonseca MD MCHC (RBC) [Mass/Vol] 35.5 g/dL High 28.4-34.8 [facility] Comment on above: Performed By: #### C DP #### [address] [address] [employer] Buyer: Francisco J Fonseca MD MCV (RBC) [Entitic vol] 74.5 fL Low 82.6-102.9 [facility] Comment on above: Performed By: #### C DP #### [address] [address] [employer] Buyer: Francisco J Fonseca MD Platelet Count See Reflexed IPF Result Normal 138-453 [facility] Comment on above: Performed By: #### C DP #### [employer] [address] [place], [place] [phone] [employer] Buyer: Francisco J Fonseca MD RBC (Bld) [#/Vol] 4.91 10*6/uL Normal 4.21-5.77 [facility] Comment on above: Performed By: #### C DP #### [employer] [address] [place], [place] [phone] [employer] Buyer: Francisco J Fonseca MD Laboratory - Chemistry and C hemistry - challengeon 01-07-2022 Magnesium [Mass/Vol] 1.5 mg/dL Low 1.6 - 2 .6 mg/dL [employer] Anion gap [Moles/Vol] 9 mmol/L 9 - 17 mmol/L [facility] [employer] Calcium [Mass/Vol] 7.8 mg/dL Low 8.6 - 10. 4 mg/dL [facility] Chloride [Moles/Vol] 102 mmol/L 98 - 10 7 mmol/L [facility] CO2 [Moles/Vol] 24 mmol/L 20 - 31 mmol/L [facility] [employer] Creatinine [Mass/Vol] 0.49 mg/dL Low 0.70 - 1.20 mg/dL [employer] GFR/1.73 sq M.predicted MDRD (S/P/Bld) [Vol rate/Area] [facility] Comment on above: Average GFR for 70 o r more years old: 75 mL/min/1.73sq m Chronic Kidney Disease: <60 mL/min/1.73sq m Kidney failure: <15 mL/min/1.73sq m eGFR calculated using average adult body mass. Additional eGFR calculator available at: http://www.[address] [employer]/multiple_crcl_2012.htm Glucose [Mass/Vol] 79 mg/dL 70 - 99 mg/dL [employer] Phosphate [Mass/Vol] 2.3 mg/dL Low 2.5 - 4 .5 mg/dL [facility] [employer] Potassium [Moles/Vol] 3.5 mmol/L Low 3.7 - 5.3 mmol/L [facility] Sodium [Moles/Vol] 135 mmol/L 135 - 144 mmol/L [facility] Urea nitrogen (BldV) [Mass/Vol] 7 mg/dL Low 8 - 23 mg/dL [facility] Laboratory - Hematology and Cell countson 01-07-2022 Basophils (Bld) [#/Vol] 0.00 10*3/uL [facility] Hematocrit (Bld) [Volume fraction] 36.6 % Low 40.7 - 50.3 % [facility] Hemoglobin (Bld) [Mass/Vol] 13.0 g/dL 13.0 - 17.0 g/dL [facility] MCH (RBC) [Entitic mass] 26.5 pg 25.2 - 33.5 pg [facility] MCHC (RBC) [Mass/Vol] 35.5 g/dL High 28.4 - 34.8 g/dL [facility] MCV (RBC) [Entitic vol] 74.5 fL Low 82.6 - 102.9 fL [facility] Morphology Walter (Bld) [Interp] MICROCYTOSIS PRESENT [facility] Morphology Walter (Bld) [Interp] 1+ TARGET CELLS [facility] Morphology Walter (Bld) [Interp] 1+ ACANTHOCYTES [facility] Platelet distribution width (Bld) [Ratio] 17.3 % High 11.8 - 14.4 % [facility] Platelets (Bld) [#/Vol] See Reflexed IPF Result [facility] RBC (Bld) [#/Vol] 4.91 10*6/uL 4.21 - 5.77 m/uL [facility] Segmented neutrophils/100 WBC (Bld) 75 % High 36 - 66 % [facility] WBC (Bld) [#/Vol] 11.1 10*3/uL [facility] Magnesiumon 01-07-2022 Magnesium [Mass/Vol] 1.5 mg/dL Low 1.6-2.6 [facility] Comment on above: Performed By: #### C DP #### [employer] [address] [place], [place] [phone] [employer] Buyer: Francisco J Fonseca MD No Panel Informationon 01-07 Absolute Eos # 0.11 [facility] Absolute Immature Granulocyte 0.00 [facility] Absolute Lymph # 1.22 [facility] Absolute Merrick # 1.44 High [facility] Interpretation and review of laboratory results Abnormal [facility] NRBC Automated 0.0 0.0 per 100 WBC [facility] Segs Absolute 8.33 High [facility] Platelet, Fluorescence [address] [facility] [address] [facility] [employer] Comment on above: ORDERED BY LAB Platelet, Immature Fraction 10.1 % 1.1 - 10.3 % [facility] Comment on above: ORDERED BY LAB [facility] Interpretation and review of laboratory results Abnormal [facility] [place] [facility] GFR >60 >60 mL/min [facility] [place] [facility] GFR Non- >60 >60 mL/min [facility] [place] [facility] Interpretation and review of laboratory results Abnormal [facility] PLT, Immature Fract.on 01-07 Platelet, Fluoresc. 230 k/uL Normal 138-453 [facility] Comment on above: Result Comment: ORDE RED BY LAB Performed By: #### C DP #### [facility] [address] [place] [address] [phone] [employer]er: Francisco J Fonseca MD PLT, Immature Fract. 10.1 % Normal 1.1-10.3 [facility] Comment on above: Result Comment: ORDE RED BY LAB Performed By: #### C DP #### [facility] [address] [place] [address] [phone] [employer]er: Francisco J Fonseca MD Phosphorus, Inorg.on 022 Phosphorus, Inorg. 2.3 mg/dL Low 2.5-4.5 [facility] Comment on above: Performed By: #### C DP, MELVIN, BMPX, MG, IPF #### [facility] [address] [place] [phone] [employer]er: Francisco J Fonseca MD Basic Metab w/rfx MGon 01-06 (cont.) Normal [facility] Comment on above: Result Comment: Aver age GFR for 70 or more years old: 75 mL/min/1.73sq m Chronic Kidney Disease: <60 mL/min/1.73sq m Kidney failure: <15 mL/min/1.73sq m eGFR calculated using average adult body mass. Additional eGFR calculator available at: http://www.[employer]/multiple_crcl_2011.htm Performed By: #### C DP, MELVIN, BMPX, IPF #### [facility] [address] [place] [phone] [employer]er: Francisco J Fonseca MD Anion gap [Moles/Vol] 11 mmol/L Normal 9-17 [facility] Comment on above: Performed By: #### C DP, MELVIN, BMPX, IPF #### [facility] [address] [place] [address] [phone] [employer]er: Francisco J Fonseca MD Calcium [Mass/Vol] 7.7 mg/dL Low 8.6-10.4 [facility] Comment on above: Performed By: #### C DP, MELVIN, BMPX, IPF #### [facility] [address] [place] [address] [phone] [employer]er: Francisco J Fonseca MD Chloride [Moles/Vol] 99 mmol/L Normal 98-107 [facility] Comment on above: Performed By: #### C DP, MELVIN, BMPX, IPF #### [facility] [address] [place] [phone] [employer]er: Francisco J Fonseca MD CO2 [Moles/Vol] 23 mmol/L Normal 20-31 [facility] Comment on above: Performed By: #### C DP, MELVIN, BMPX, IPF #### [facility] [address] [place] [phone] [employer]er: Francisco J Fonseca MD Creatinine [Mass/Vol] 0.50 mg/dL Low 0.70-1.20 [facility] Comment on above: Performed By: #### C DP, MELVIN, BMPX, IPF #### [facility] [address] [place] [phone] [employer]er: Francisco J Fonseca MD GFR, Amer >60 Normal >[address] [facility] Comment on above: Performed By: #### C DP, MELVIN, BMPX, IPF #### [facility] [address] [place] [phone] [employer]er: Francisco J Fonseca MD GFR,non Amer >60 Normal >60 [facility] Comment on above: Performed By: #### C DP, MELVIN, BMPX, IPF #### [facility] [address] [place] [phone] [employer]er: Francisco J Fonseca MD Glucose [Mass/Vol] 149 mg/dL High 70-99 [facility] Comment on above: Performed By: #### C DP, MELVIN, BMPX, IPF #### [facility] [address] [place] [phone] [employer]er: Francisco J Fonseca MD Potassium [Moles/Vol] 3.6 mmol/L Low 3.7-5.3 [facility] Comment on above: Performed By: #### C DP, MELVIN, BMPX, IPF #### [facility] [address] [place] [phone] [employer]er: Francisco J Fonseca MD Sodium [Moles/Vol] 133 mmol/L Low 135-144 [facility] Comment on above: Performed By: #### C DP, MELVIN, BMPX, IPF #### [facility] [address] [place] [phone] [employer]er: Francisco J Fonseca MD Urea nitrogen [Mass/Vol] 11 mg/dL Normal 8-23 [facility] Comment on above: Performed By: #### C DP, MELVIN, BMPX, IPF #### [address] [address] [employer]er: Francisco J Fonseca MD CBC with Diffon 01-06-2022 Abs. Basophil 0.03 k/uL Normal 0.00-0.20 [facility] Comment on above: Performed By: #### C DP, MELVIN, BMPX, IPF #### [place] [address] [employer]er: Francisco J Fonseca MD Abs.Imm.Granulocyte 0.05 k/uL Normal 0.00-0.30 [facility] Comment on above: Performed By: #### C DP, MELVIN, BMPX, IPF #### [facility] [address] [place] [address] [employer]er: Francisco J Fonseca MD Abs.Neutrophil (Seg) 11.21 k/uL High 1.50-8.10 [facility] Comment on above: Performed By: #### C DP, MELVIN, BMPX, IPF #### [facility] [address] [place] [address] [employer]er: Francisco J Fonseca MD Basophils/100 WBC (Bld) 0 % Normal 0-2 [facility] Comment on above: Performed By: #### C DP, MELVIN, BMPX, IPF #### [facility] [address] [place] [phone] [employer]er: Francisco J Fonseca MD Eosinophils (Bld) [#/Vol] 0.09 10*3/uL Normal 0.00-0.44 [facility] Comment on above: Performed By: #### C DP, MELVIN, BMPX, IPF #### [facility] [address] [place] [address] [employer]er: Francisco J Fonseca MD Eosinophils/100 WBC (Bld) 1 % Normal 1-4 [facility] Comment on above: Performed By: #### C DP, MELVIN, BMPX, IPF #### [facility] [address] [place] [address] [employer]er: Francisco J Fonseca MD Erythrocyte distribution width (RBC) [Ratio] 18.4 % High 11.8-14.4 [facility] Comment on above: Performed By: #### C DP, MELVIN, BMPX, IPF #### [facility] [address] [place] [address] Wheat Buyer: Francisco J Fonseca MD Hematocrit (Bld) [Volume fraction] 38.2 % Low 40.7-50.3 [facility] Comment on above: Performed By: #### C DP, MELVIN, BMPX, IPF #### [facility] [address] [place] [address] Wheat Buyer: Francisco J Fonseca MD Hemoglobin (Bld) [Mass/Vol] 13.2 g/dL Normal 13.0-17.0 [facility] Comment on above: Performed By: #### C DP, MELVIN, BMPX, IPF #### [facility] [address] [place] [address] Wheat Buyer: Francisco J Fonseca MD Immature granulocytes/100 WBC (Bld) 0 % Normal 0 [facility] Comment on above: Performed By: #### C DP, MELVIN, BMPX, IPF #### [facility] [address] [place] [address] Wheat Buyer: Francisco J Fonseca MD Lymphocytes (Bld) [#/Vol] 0.82 10*3/uL Low 1.10-3.70 [facility] Comment on above: Performed By: #### C DP, MELVIN, BMPX, IPF #### [facility] [address] [place] [address] Wheat Buyer: Francisco J Fonseca MD Lymphocytes/100 WBC (Bld) 6 % Low 24-43 [facility] Comment on above: Performed By: #### C DP, MELVIN, BMPX, IPF #### [address] [address] Wheat Buyer: Francisco J Fonseca MD MCH (RBC) [Entitic mass] 26.7 pg Normal 25.2-33.5 [facility] Comment on above: Performed By: #### C DP, MELVIN, BMPX, IPF #### [address] [address] Wheat Buyer: Francisoc J Fonseca MD MCHC (RBC) [Mass/Vol] 34.6 g/dL Normal 28.4-34.8 [facility] Comment on above: Performed By: #### C DP, MELVIN, BMPX, IPF #### [address] [address] Wheat Buyer: Francisco J Fonseca MD MCV (RBC) [Entitic vol] 77.2 fL Low 82.6-102.9 [facility] Comment on above: Performed By: #### C DP, MELVIN, BMPX, IPF #### [address] [address] Wheat Buyer: Francisco J Fonseca MD Monocytes (Bld) [#/Vol] 1.14 10*3/uL Normal 0.10-1.20 [facility] Comment on above: Performed By: #### C DP, MELVIN, BMPX, IPF #### [address] [address] Wheat Buyer: Francisco J Fonseca MD Monocytes/100 WBC (Bld) 9 % Normal 3-12 [facility] Comment on above: Performed By: #### C DP, MELVIN, BMPX, IPF #### [address] [address] Wheat Buyer: Francisco J Fonseca MD Neutrophil (Seg) 84 % High 36-[address] [facility] Comment on above: Performed By: #### C DP, MELVIN, BMPX, IPF #### [address] [address] Wheat Buyer: Francisco J Fonseca MD NRBC Automated 0.0 per 100 WBC Normal 0.0 [facility] Comment on above: Performed By: #### C DP, MELVIN, BMPX, IPF #### [address] [address] Wheat Buyer: Francisco J Fonseca MD Platelet Count See Reflexed IPF Result Normal 138-453 [facility] Comment on above: Performed By: #### C DP, MELVIN, BMPX, IPF #### [address] [address] Wheat Buyer: Francisco J Fonseca MD RBC (Bld) [#/Vol] 4.95 10*6/uL Normal 4.21-5.77 [facility] Comment on above: Performed By: #### C DP, MELVIN, BMPX, IPF #### [address] [address] Wheat Buyer: Francisco J Fonseca MD RBC morphology finding Nom (Bld) ANISOCYTOSIS PRESENT Normal [facility] Comment on above: Result Comment: MICR OCYTOSIS PRESENT Performed By: #### C DP, MELVIN, BMPX, IPF #### [address] [address] Wheat Buyer: Francisco J Fonseca MD WBC (Bld) [#/Vol] 13.3 10*3/uL High 3.5-11.3 [facility] Comment on above: Performed By: #### C DP, MELVIN, BMPX, IPF #### [address] [address] Wheat Buyer: Francisco J Fonseca MD Laboratory - Chemistry and C hemistry - challengeon 01-06-2022 Anion gap [Moles/Vol] 11 mmol/L 9 - 17 mmol/L [facility] Calcium [Mass/Vol] 7.7 mg/dL Low 8.6 - 10. 4 mg/dL [facility] Chloride [Moles/Vol] 99 mmol/L 98 - 10 7 mmol/L [facility] CO2 [Moles/Vol] 23 mmol/L 20 - 31 mmol/L [facility] Creatinine [Mass/Vol] 0.5 mg/dL Low 0.70 - 1.20 mg/dL [facility] GFR/1.73 sq M.predicted MDRD (S/P/Bld) [Vol rate/Area] [facility] Comment on above: Average GFR for 70 o r more years old: 75 mL/min/1.73sq m Chronic Kidney Disease: <60 mL/min/1.73sq m Kidney failure: <15 mL/min/1.73sq m eGFR calculated using average adult body mass. Additional eGFR calculator available at: http://www.[employer]/multiple_crcl_2012.htm Glucose [Mass/Vol] 149 mg/dL High 70 - 99 mg/dL [facility] Phosphate [Mass/Vol] 2.5 mg/dL 2.5 - 4 .5 mg/dL [facility] Potassium [Moles/Vol] 3.6 mmol/L Low 3.7 - 5.3 mmol/L [facility] Sodium [Moles/Vol] 133 mmol/L Low 135 - 144 mmol/L [facility] Urea nitrogen (BldV) [Mass/Vol] 11 mg/dL 8 - 23 mg/dL [facility] Laboratory - Hematology and Cell countson 01-06-2022 Basophils (Bld) [#/Vol] 0.03 10*3/uL [facility] Basophils/100 WBC (Bld) 0 % 0 - 2 % [facility] Eosinophils/100 WBC (Bld) 1 % 1 - 4 % [facility] Hematocrit (Bld) [Volume fraction] 38.2 % Low 40.7 - 50.3 % [facility] Hemoglobin (Bld) [Mass/Vol] 13.2 g/dL 13.0 - 17.0 g/dL [facility] Immature granulocytes/100 WBC (Bld) 0 % 0 [facility] Lymphocytes/100 WBC (Bld) 6 % Low 24 - 43 % [facility] MCH (RBC) [Entitic mass] 26.7 pg 25.2 - 33.5 pg [facility] MCHC (RBC) [Mass/Vol] 34.6 g/dL 28.4 - 34.8 g/dL [facility] MCV (RBC) [Entitic vol] 77.2 fL Low 82.6 - 102.9 fL [facility] Monocytes/100 WBC (Bld) 9 % 3 - 12 % [facility] Platelet distribution width (Bld) [Ratio] 18.4 % High 11.8 - 14.4 % [facility] Platelets (Bld) [#/Vol] See Reflexed IPF Result [facility] RBC (Bld) [#/Vol] 4.95 10*6/uL 4.21 - 5.77 m/uL [facility] RBC (Bld) [#/Vol] ANISOCYTOSIS PRESENT [facility] Comment on above: MICROCYTOSIS PRESENT Segmented neutrophils/100 WBC (Bld) 84 % High 36 - 65 % [facility] WBC (Bld) [#/Vol] 13.3 10*3/uL High [facility] No Panel Informationon 01-06 Platelet, Fluorescence 252 [facility] Platelet, Immature Fraction 10.1 % 1.1 - 10.3 % [facility] Absolute Eos # 0.09 [facility] Absolute Immature Granulocyte 0.05 [facility] Absolute Lymph # 0.82 Low [facility] Absolute Merrick # 1.14 [facility] Interpretation and review of laboratory results Abnormal [facility] NRBC Automated 0.0 0.0 per 100 WBC [facility] Segs Absolute 11.[address] [facility] GFR >60 >60 mL/min [facility] GFR Non- >60 >60 mL/min [facility] Interpretation and review of laboratory results Abnormal [facility] PLT, Immature Fract.on 01-06 Platelet, Fluoresc. 252 k/uL Normal 138-453 [facility] Comment on above: Performed By: #### C DP, MELVIN, BMPX, IPF #### [employer] [address] [place] [address] Wheat Buyer: Francisco J Fonseca MD PLT, Immature Fract. 10.1 % Normal 1.1-10.3 [facility] Comment on above: Performed By: #### C DP, MELVIN, BMPX, IPF #### [facility] [address] [place] [address] Wheat Buyer: Francisco J Fonseca MD Phosphorus, Inorg.on 022 Phosphorus, Inorg. 2.5 mg/dL Normal 2.5-4.5 [facility] Comment on above: Performed By: #### C DP, MELVIN, BMPX, IPF #### [facility] [address] [place] [address] Wheat Buyer: Francisco J Fonseca MD Basic Metab w/rfx MGon 01-05 Potassium [Moles/Vol] 3.4 mmol/L Low 3.7-5.3 [facility] Comment on above: Performed By: #### C DP, MELVIN, BMPX, IPF #### [facility] [address] [place] [address] Wheat Buyer: Francisco J Fonseca MD Urea nitrogen [Mass/Vol] 14 mg/dL Normal 8- [facility] Comment on above: Performed By: #### C DP, MELVIN, BMPX, IPF #### [facility] [address] [place] [address] Wheat Buyer: Francisco J Fonseca MD Anion gap [Moles/Vol] 12 mmol/L Normal 9-17 [facility] Comment on above: Performed By: #### C DP, MELVIN, BMPX, IPF #### [employer] [address] [place] [address] Wheat Buyer: Farncisco J Fonseca MD Calcium [Mass/Vol] 8.1 mg/dL Low 8.6-10.4 [facility] Comment on above: Performed By: #### C DP, MELVIN, BMPX, IPF #### [employer] [address] [place] [address] Wheat Buyer: Francisco J Fonseca MD Chloride [Moles/Vol] 98 mmol/L Normal 98-107 [facility] Comment on above: Performed By: #### C DP, MELVIN, BMPX, IPF #### [employer] [address] [place] [address] Wheat Buyer: Francisco J Fonseca MD CO2 [Moles/Vol] 24 mmol/L Normal 20-31 [facility] Comment on above: Performed By: #### C DP, MELVIN, BMPX, IPF #### [employer] [address] [place] [address] Wheat Buyer: Francisco J Fonseca MD Creatinine [Mass/Vol] 0.54 mg/dL Low 0.70-1.20 [facility] Comment on above: Performed By: #### C DP, MELVIN, BMPX, IPF #### [employer] [address] [place] [address] Wheat Buyer: Francisco J Fonseca MD Glucose [Mass/Vol] 122 mg/dL High 70-99 [facility] Comment on above: Performed By: #### C DP, MELVIN, BMPX, IPF #### [employer] [address] [place] [address] Wheat Buyer: Francisco J Fonseca MD Sodium [Moles/Vol] 134 mmol/L Low 135-144 [facility] Comment on above: Performed By: #### C DP, MELVIN, BMPX, IPF #### [address] [phone] Wheat Buyer: Francisco J Fonseca MD (cont.) [facility] Comment on above: Result Comment: Aver age GFR for 70 or more years old: 75 mL/min/1.73sq m Chronic Kidney Disease: <60 mL/min/1.73sq m Kidney failure: <15 mL/min/1.73sq m eGFR calculated using average adult body mass. Additional eGFR calculator available at: http://www.[employer]/multiple_crcl_2011.htm Performed By: #### C DP, MELVIN, BMPX, IPF #### [place] [address] Wheat Buyer: Francisco J Fonseca MD Anion gap [Moles/Vol] 11 mmol/L Normal 9-17 [facility] Comment on above: Performed By: #### C DP, MELVIN, BMPX, IPF #### [place] [address] Wheat Buyer: Francisco J Fonseca MD Calcium [Mass/Vol] 9.1 mg/dL Normal 8.6-10.4 [facility] Comment on above: Performed By: #### C DP, MELVIN, BMPX, IPF #### [address] [address] Wheat Buyer: Francisco J Fonseca MD Chloride [Moles/Vol] 99 mmol/L Normal 98-107 [facility] Comment on above: Performed By: #### C DP, MELVIN, BMPX, IPF #### [address] [address] Wheat Buyer: Francisco J Fonseca MD CO2 [Moles/Vol] 25 mmol/L Normal 20-31 [facility] Comment on above: Performed By: #### C DP, MELVIN, BMPX, IPF #### [facility] [address] [place] [address] Wheat Buyer: Francisco J Fonseca MD Creatinine [Mass/Vol] 0.57 mg/dL Low 0.70-1.20 [facility] Comment on above: Performed By: #### C DP, MELVIN, BMPX, IPF #### [facility] [address] [place] [address] Wheat Buyer: Francisco J Fonseca MD GFR, Amer >60 Normal >[address] [facility] Comment on above: Performed By: #### C DP, MELVIN, BMPX, IPF #### [facility] [address] [place] [address] Wheat Buyer: Francisco J Fonseca MD GFR,non Amer >60 Normal >60 [facility] Comment on above: Performed By: #### C DP, MELVIN, BMPX, IPF #### [facility] [address] [place] [address] Wheat Buyer: Francisco J Fonseca MD Glucose [Mass/Vol] 129 mg/dL High 70-99 [facility] Comment on above: Performed By: #### C DP, MELVIN, BMPX, IPF #### [facility] [address] [place] [address] Wheat Buyer: Francisco J Fonseca MD Potassium [Moles/Vol] 3.5 mmol/L Low 3.7-5.3 [facility] Comment on above: Performed By: #### C DP, MELVIN, BMPX, IPF #### [facility] [address] [place] [address] Wheat Buyer: Francisco J Fonseca MD Sodium [Moles/Vol] 135 mmol/L Normal 135-144 [facility] Comment on above: Performed By: #### C DP, MELVIN, BMPX, IPF #### [facility] [address] [place] [address] Wheat Buyer: Francisco J Fonseca MD Urea nitrogen [Mass/Vol] 15 mg/dL Normal 8-23 [facility] Comment on above: Performed By: #### C DP, MELVIN, BMPX, IPF #### [address] [address] Wheat Buyer: Francisco J Fonseca MD (cont.) Normal [facility] Comment on above: Result Comment: Aver age GFR for 70 or more years old: 75 mL/min/1.73sq m Chronic Kidney Disease: <60 mL/min/1.73sq m Kidney failure: <15 mL/min/1.73sq m eGFR calculated using average adult body mass. Additional eGFR calculator available at: http://www.[employer]ang[employer]/multiple_crcl_2012.htm Performed By: #### C DP, MELVIN, BMPX, IPF #### [address] [address] Wheat Buyer: Francisco J Fonseca MD Anion gap [Moles/Vol] 15 mmol/L Normal 9-17 [facility] Comment on above: Performed By: #### C DP, MELVIN, BMPX, IPF #### [address] [address] Wheat Buyer: Francisco J Fonseca MD Calcium [Mass/Vol] 8.2 mg/dL Low 8.6-10.4 [facility] Comment on above: Performed By: #### C DP, MELVIN, BMPX, IPF #### [facility] [address] [place] [address] Wheat Buyer: Francisco J Fonseca MD Chloride [Moles/Vol] 98 mmol/L Normal 98-107 [facility] Comment on above: Performed By: #### C DP, MELVIN, BMPX, IPF #### [facility] [address] [place] [address] Wheat Buyer: Francisco J Fonseca MD CO2 [Moles/Vol] 23 mmol/L Normal 20-31 [facility] Comment on above: Performed By: #### C DP, MELVIN, BMPX, IPF #### [facility] [address] [place] [address] Wheat Buyer: Francisco J Fonseca MD Creatinine [Mass/Vol] 0.66 mg/dL Low 0.70-1.20 [facility] Comment on above: Performed By: #### C DP, MELVIN, BMPX, IPF #### [facility] [address] [place] [address] Wheat Buyer: Francisco J Fonseca MD GFR, Amer >60 Normal >[address] [facility] Comment on above: Performed By: #### C DP, MELVIN, BMPX, IPF #### [address] [address] Wheat Buyer: Francisco J Fonseca MD GFR,non Amer >60 Normal >60 [facility] Comment on above: Performed By: #### C DP, MELVIN, BMPX, IPF #### [address] [address] Wheat Buyer: Francisco J Fonseca MD Glucose [Mass/Vol] 90 mg/dL Normal 70-99 [facility] Comment on above: Performed By: #### C DP, MELVIN, BMPX, IPF #### [facility] [address] [place] [address] Wheat Buyer: Francisco J Fonseca MD Potassium [Moles/Vol] 3.7 mmol/L Normal 3.7-5.3 [facility] Comment on above: Performed By: #### C DP, MELVIN, BMPX, IPF #### [facility] [address] [place] [address] Wheat Buyer: Francisco J Fonseca MD Sodium [Moles/Vol] 136 mmol/L Normal 135-144 [facility] Comment on above: Performed By: #### C DP, MELVIN, BMPX, IPF #### [facility] [address] [place] [address] Wheat Buyer: Francisco J Fonseca MD Urea nitrogen [Mass/Vol] 20 mg/dL Normal 8-23 [facility] Comment on above: Performed By: #### C DP, MELVIN, BMPX, IPF #### [place] [address] Wheat Buyer: Francisc oJ Fonseca MD CBC with Diffon 01-05-2022 Abs. Basophil 0.04 k/uL Normal 0.00-0.20 [facility] Comment on above: Performed By: #### C DP, MELVIN, BMPX, IPF #### [place] [address] Wheat Buyer: Francisco J Fonseca MD Abs.Imm.Granulocyte 0.08 k/uL Normal 0.00-0.30 [facility] Comment on above: Performed By: #### C DP, MELVIN, BMPX, IPF #### [place] [address] Wheat Buyer: Francisco J Fonseca MD Abs.Neutrophil (Seg) 14.26 k/uL High 1.50-8.10 [facility] Comment on above: Performed By: #### C DP, MELVIN, BMPX, IPF #### [facility] [address] [place] [address] Wheat Buyer: Francisco J Fonseca MD Basophils/100 WBC (Bld) 0 % Normal 0-2 [facility] Comment on above: Performed By: #### C DP, MELVIN, BMPX, IPF #### [facility] [address] [place] [address] Wheat Buyer: Francisco J Fonseca MD Eosinophils (Bld) [#/Vol] 0.11 10*3/uL Normal 0.00-0.44 [facility] Comment on above: Performed By: #### C DP, MELVIN, BMPX, IPF #### [address] [address] Wheat Buyer: Francisco J Fonseca MD Eosinophils/100 WBC (Bld) 1 % Normal 1-4 [facility] Comment on above: Performed By: #### C DP, MELVIN, BMPX, IPF #### [place] [address] Wheat Buyer: Francisco J Fonseca MD Immature granulocytes/100 WBC (Bld) 1 % High 0 [facility] Comment on above: Performed By: #### C DP, MELVIN, BMPX, IPF #### [place] [address] Wheat Buyer: Francisco J Fonseca MD Lymphocytes (Bld) [#/Vol] 0.96 10*3/uL Low 1.10-3.70 [facility] Comment on above: Performed By: #### C DP, MELVIN, BMPX, IPF #### [address] [address] Wheat Buyer: Francisco J Fonseca MD Lymphocytes/100 WBC (Bld) 6 % Low 24-43 [facility] Comment on above: Performed By: #### C DP, MELVIN, BMPX, IPF #### [place] [address] Wheat Buyer: Francisco J Fonseca MD Monocytes (Bld) [#/Vol] 0.97 10*3/uL Normal 0.10-1.20 [facility] Comment on above: Performed By: #### C DP, MELVIN, BMPX, IPF #### [address] [address] Wheat Buyer: Francisco J Fonseca MD Monocytes/100 WBC (Bld) 6 % Normal 3-12 [facility] Comment on above: Performed By: #### C DP, MELVIN, BMPX, IPF #### [address] [address] Wheat Buyer: Francisco J Fonseca MD Neutrophil (Seg) 87 % High 36-[address] [facility] Comment on above: Performed By: #### C DP, MELVIN, BMPX, IPF #### [address] [address] Wheat Buyer: Francisco J Fonseca MD Erythrocyte distribution width (RBC) [Ratio] 18.6 % High 11.8-14.4 [facility] Comment on above: Performed By: #### C DP, MELVIN, BMPX, IPF #### [address] [address] Wheat Buyer: Francisco J Fonseca MD Hematocrit (Bld) [Volume fraction] 38.9 % Low 40.7-50.3 [facility] Comment on above: Performed By: #### C DP, MELVIN, BMPX, IPF #### [address] [address] Wheat Buyer: Francisco J Fonseca MD Hemoglobin (Bld) [Mass/Vol] 13.5 g/dL Normal 13.0-17.0 [facility] Comment on above: Performed By: #### C DP, MELVIN, BMPX, IPF #### [facility] [address] [place] [address] Wheat Buyer: Francisco J Fonseca MD MCH (RBC) [Entitic mass] 26.8 pg Normal 25.2-33.5 [facility] Comment on above: Performed By: #### C DP, MELVIN, BMPX, IPF #### [facility] [address] [place] [address] Wheat Buyer: Francisco J Fonseca MD MCHC (RBC) [Mass/Vol] 34.7 g/dL Normal 28.4-34.8 [facility] Comment on above: Performed By: #### C DP, MELVIN, BMPX, IPF #### [address] [address] Wheat Buyer: Francisco J Fonseca MD MCV (RBC) [Entitic vol] 77.3 fL Low 82.6-102.9 [facility] Comment on above: Performed By: #### C DP, MELVIN, BMPX, IPF #### [address] [address] Wheat Buyer: Francisco J Fonseca MD NRBC Automated 0.0 per 100 WBC Normal 0.0 [facility] Comment on above: Performed By: #### C DP, MELVIN, BMPX, IPF #### [address] [address] Wheat Buyer: Francisco J Fonseca MD Platelet Count See Reflexed IPF Result Normal 138-453 [facility] Comment on above: Performed By: #### C DP, MELVIN, BMPX, IPF #### [address] [address] Wheat Buyer: Francisco J Fonseca MD RBC (Bld) [#/Vol] 5.03 10*6/uL Normal 4.21-5.77 [facility] Comment on above: Performed By: #### C DP, MELVIN, BMPX, IPF #### [address] [address] Wheat Buyer: Francisco J Fonseca MD RBC morphology finding Nom (Bld) ANISOCYTOSIS PRESENT Normal [facility] Comment on above: Result Comment: MICR OCYTOSIS PRESENT Performed By: #### C DP, MELVIN, BMPX, IPF #### [address] [address] Wheat Buyer: Francisco J Fonseca MD WBC (Bld) [#/Vol] 16.4 10*3/uL High 3.5-11.3 [facility] Comment on above: Performed By: #### C DP, MELVIN, BMPX, IPF #### [employer] [address] [phone] Wheat Buyer: Francisco J Fonseca MD IN UGIon 01-05-2022 [place] UGI EXAMINATION: SINGLE CONTRAST UPPER GI SERIES 01/05/2022 HISTORY: ORDERING SYSTEM PROVIDED HISTORY: repair perf ulcer TECHNOLOGIST PROVIDED HISTORY: repair perf ulcer COMPARISON: None. TECHNIQUE: Multiple single contrast images of the esophagus, gastroesophageal junction and stomach were obtained following the oral administration of water soluble contrast. FLUOROSCOPY DOSE AND TYPE OR TIME AND EXPOSURES: DAP [id number] FINDINGS: Contrast was administered through the indwelling [...] Howard Aldridge MD 01/05/22 Final result Normal [facility] - Chemistry and C hemistry - challengeon 01-05-2022 Magnesium [Mass/Vol] 1.4 mg/dL Low 1.6 - 2 .6 mg/dL [employer] GFR/1.73 sq M.predicted MDRD (S/P/Bld) [Vol rate/Area] [facility] [employer] Comment on above: Average GFR for 70 o r more years old: 75 mL/min/1.73sq m Chronic Kidney Disease: <60 mL/min/1.73sq m Kidney failure: <15 mL/min/1.73sq m eGFR calculated using average adult body mass. Additional eGFR calculator available at: http://www.[employer].com/multiple_crcl_2012.htm Potassium [Moles/Vol] 3.4 mmol/L Low 3.7 - 5.3 mmol/L [employer] Urea nitrogen (BldV) [Mass/Vol] 14 mg/dL 8 - 23 mg/dL [employer] Phosphate [Mass/Vol] 2.4 mg/dL Low 2.5 - 4 .5 mg/dL [facility] Magnesium [Mass/Vol] 1.5 mg/dL Low 1.6 - 2 .6 mg/dL [facility] Anion gap [Moles/Vol] 11 mmol/L 9 - 17 mmol/L [facility] Calcium [Mass/Vol] 9.1 mg/dL 8.6 - 10. 4 mg/dL [facility] Chloride [Moles/Vol] 99 mmol/L 98 - 10 7 mmol/L [facility] CO2 [Moles/Vol] 25 mmol/L 20 - 31 mmol/L [facility] Creatinine [Mass/Vol] 0.57 mg/dL Low 0.70 - 1.20 mg/dL [facility] GFR/1.73 sq M.predicted MDRD (S/P/Bld) [Vol rate/Area] [facility] Comment on above: Average GFR for 70 o r more years old: 75 mL/min/1.73sq m Chronic Kidney Disease: <60 mL/min/1.73sq m Kidney failure: <15 mL/min/1.73sq m eGFR calculated using average adult body mass. Additional eGFR calculator available at: http://www.[employer]/multiple_crcl_2012.htm Glucose [Mass/Vol] 129 mg/dL High 70 - 99 mg/dL [facility] Phosphate [Mass/Vol] 2.4 mg/dL Low 2.5 - 4 .5 mg/dL [facility] Potassium [Moles/Vol] 3.5 mmol/L Low 3.7 - 5.3 mmol/L [facility] Sodium [Moles/Vol] 135 mmol/L 135 - 144 mmol/L [facility] Urea nitrogen (BldV) [Mass/Vol] 15 mg/dL 8 - 23 mg/dL [facility] Laboratory - Hematology and Cell countson 01-05-2022 Basophils (Bld) [#/Vol] 0.04 10*3/uL [facility] Basophils/100 WBC (Bld) 0 % 0 - 2 % [facility] Eosinophils/100 WBC (Bld) 1 % 1 - 4 % [facility] Hematocrit (Bld) [Volume fraction] 38.9 % Low 40.7 - 50.3 % [facility] Hemoglobin (Bld) [Mass/Vol] 13.5 g/dL 13.0 - 17.0 g/dL [facility] Immature granulocytes/100 WBC (Bld) 1 % High 0 [facility] Lymphocytes/100 WBC (Bld) 6 % Low 24 - 43 % [facility] MCH (RBC) [Entitic mass] 26.8 pg 25.2 - 33.5 pg [facility] MCHC (RBC) [Mass/Vol] 34.7 g/dL 28.4 - 34.8 g/dL [facility] MCV (RBC) [Entitic vol] 77.3 fL Low 82.6 - 102.9 fL [facility] Monocytes/100 WBC (Bld) 6 % 3 - 12 % [facility] [facility] Platelet distribution width (Bld) [Ratio] 18.6 % High 11.8 - 14.4 % [facility] Platelets (Bld) [#/Vol] See Reflexed IPF Result [facility] RBC (Bld) [#/Vol] 5.03 10*6/uL 4.21 - 5.77 m/uL [facility] RBC (Bld) [#/Vol] ANISOCYTOSIS PRESENT [facility] Comment on above: MICROCYTOSIS PRESENT Segmented neutrophils/100 WBC (Bld) 87 % High 36 - 65 % [facility] WBC (Bld) [#/Vol] 16.4 10*3/uL High [facility] Magnesiumon 01-05-2022 Magnesium [Mass/Vol] 1.4 mg/dL Low 1.6-2.6 [facility] Comment on above: Performed By: #### C DP, MELVIN, BMPX, IPF #### [employer] [address] [place] [address] Wheat Buyer: Francisco J Fonseca MD Magnesium [Mass/Vol] 1.5 mg/dL Low 1.6-2.6 [facility] Comment on above: Performed By: #### C DP, MELVIN, BMPX, IPF #### [employer] [address] [place] [address] Wheat Buyer: Francisco J Fonseca MD No Panel Informationon 01-05 1. No evidence for contrast leakage from the stomach or duodenum following repair of perforated ulcer. 2. Gastroesophageal reflux. [facility] EXAMINATION: SINGLE CONTRAST UPPER GI SERIES 01/05/2022 HISTORY: ORDERING SYSTEM PROVIDED HISTORY: repair perf ulcer TECHNOLOGIST PROVIDED HISTORY: repair perf ulcer COMPARISON: None. TECHNIQUE: Multiple single contrast images of the esophagus, gastroesophageal junction and stomach were obtained following the oral administration of water soluble contrast. FLUOROSCOPY DOSE AND TYPE OR TIME AND EXPOSURES: DAP 16.153Ptig3 FINDINGS: Contrast was administered through the indwelling NG tube. No extravasation of contrast from the stomach. There is normal filling of stomach and proximal small bowel loops. There was some reflux into the biliary tree. Gastroesophageal reflux is noted. [facility] Howard Aldridge MD - 01/05/2022 EXAMINATION: SINGLE CONTRAST UPPER GI SERIES 01/05/2022 HISTORY: ORDERING SYSTEM PROVIDED HISTORY: repair perf ulcer TECHNOLOGIST PROVIDED HISTORY: repair perf ulcer COMPARISON: None. TECHNIQUE: Multiple single contrast images of the esophagus, gastroesophageal junction and stomach were obtained following the oral administration of water soluble contrast. FLUOROSCOPY DOSE AND TYPE OR TIME AND EXPOSURES: DAP 16.993Oqao3 FINDINGS: Contrast was administered through the indwelling NG tube. No extravasation of contrast from the stomach. There is normal filling of stomach and proximal small bowel loops. There was some reflux into the biliary tree. Gastroesophageal reflux is noted. IMPRESSION: 1. No evidence for contrast leakage from the stomach or duodenum following repair of perforated ulcer. 2. Gastroesophageal reflux. [employer] Work Phone: Radiology Study observation (narrative) [employer] Work Phone: Interpretation and review of laboratory results Abnormal [facility] GFR >60 >60 mL/min [facility] GFR Non- >60 >60 mL/min [facility] Interpretation and review of laboratory results Abnormal [facility] Interpretation and review of laboratory results Abnormal [facility] Interpretation and review of laboratory results Abnormal [facility] Platelet, Fluorescence [address] [facility] Platelet, Immature Fraction 10.5 % High 1.1 - 10.3 % [facility] Absolute Eos # 0.11 [facility] Absolute Immature Granulocyte 0.08 [facility] Absolute Lymph # 0.96 Low [facility] Absolute Merrick # 0.97 [facility] Interpretation and review of laboratory results Abnormal [facility] NRBC Automated 0.0 0.0 per 100 WBC [facility] Segs Absolute 14.[address] [facility] Interpretation and review of laboratory results Abnormal [facility] GFR >60 >60 mL/min [facility] GFR Non- >60 >60 mL/min [facility] Interpretation and review of laboratory results Abnormal [facility] No Panel InformationOrdered By: Howard Aldridge on 01-05-2022 [facility] Work Phone: PLT, Immature Fract.on 01-05 Platelet, Fluoresc. 250 k/uL Normal 138-453 [facility] Comment on above: Performed By: #### C DP, MELVIN, BMPX, IPF #### [employer] [address] [place], [place] [id number] Wheat Buyer: Francisco J Fonseca MD PLT, Immature Fract. 10.5 % High 1.1-10.3 [facility] Comment on above: Performed By: #### C DP, MELVIN, BMPX, IPF #### [employer] [address] [place], [place] [id number] Wheat Buyer: Francisco J Fonseca MD Phosphorus, Inorg.on 022 Phosphorus, Inorg. 2.4 mg/dL Low 2.5-4.5 [facility] Comment on above: Performed By: #### C DP, MELVIN, BMPX, IPF #### [facility] [address] [place] [address] Wheat Buyer: Francisco J Fonseca MD Phosphorus, Inorg. 1.9 mg/dL Low 2.5-4.5 [facility] Comment on above: Performed By: #### C DP, MELVIN, BMPX, IPF #### [address] [phone] Wheat Buyer: Francisco J Fonseca MD Basic Metab w/rfx MGon 01-04 Potassium [Moles/Vol] 3.4 mmol/L Low 3.7-5.3 [facility] Comment on above: Performed By: #### C DP, MELVIN, BMPX, IPF #### [address] [address] Wheat Buyer: Francisco J Fonseca MD (cont.) Normal [facility] Comment on above: Result Comment: Aver age GFR for 70 or more years old: 75 mL/min/1.73sq m Chronic Kidney Disease: <60 mL/min/1.73sq m Kidney failure: <15 mL/min/1.73sq m eGFR calculated using average adult body mass. Additional eGFR calculator available at: http://www.[employer]/multiple_crcl_2012.htm Performed By: #### C DP, MELVIN, BMPX, IPF #### [address] [phone] Wheat Buyer: Francisco J Fonseca MD Anion gap [Moles/Vol] 12 mmol/L Normal 9-17 [facility] Comment on above: Performed By: #### C DP, MELVIN, BMPX, IPF #### [facility] [address] [place] [address] Wheat Buyer: Francisco J Fonseca MD Calcium [Mass/Vol] 8.1 mg/dL Low 8.6-10.4 [facility] Comment on above: Performed By: #### C DP, MELVIN, BMPX, IPF #### [facility] [address] [place] [address] Wheat Buyer: Francisco J Fonseca MD Chloride [Moles/Vol] 99 mmol/L Normal 98-107 [facility] Comment on above: Performed By: #### C DP, MELVIN, BMPX, IPF #### [facility] [address] [place] [address] Wheat Buyer: Francisco J Fonseca MD CO2 [Moles/Vol] 23 mmol/L Normal 20-31 [facility] Comment on above: Performed By: #### C DP, MELVIN, BMPX, IPF #### [facility] [address] [place] [address] Wheat Buyer: Francisco J Fonseca MD Creatinine [Mass/Vol] 0.61 mg/dL Low 0.70-1.20 [facility] Comment on above: Performed By: #### C DP, MELVIN, BMPX, IPF #### [facility] [address] [place] [address] Wheat Buyer: Francisco J Fosneca MD GFR, Amer >60 Normal >[address] [facility] Comment on above: Performed By: #### C DP, MELVIN, BMPX, IPF #### [facility] [address] [place] [address] Wheat Buyer: Francisco J Fonseca MD GFR,non Amer >60 Normal >60 [facility] Comment on above: Performed By: #### C DP, MELVIN, BMPX, IPF #### [facility] [address] [place] [address] Wheat Buyer: Francisco J Fonseca MD Glucose [Mass/Vol] 125 mg/dL High 70-99 [facility] Comment on above: Performed By: #### C DP, MELVIN, BMPX, IPF #### [facility] [address] [place] [address] Wheat Buyer: Francisco J Fonseca MD Sodium [Moles/Vol] 134 mmol/L Low 135-144 [facility] Comment on above: Performed By: #### C DP, MELVIN, BMPX, IPF #### [facility] [address] [place] [address] Wheat Buyer: Francisco J Fonseca MD Urea nitrogen [Mass/Vol] 19 mg/dL Normal 8-23 [facility] Comment on above: Performed By: #### C DP, MELVIN, BMPX, IPF #### [address] [address] Wheat Buyer: Francisco J Fonseca MD (cont.) [facility] Comment on above: Result Comment: Aver age GFR for 70 or more years old: 75 mL/min/1.73sq m Chronic Kidney Disease: <60 mL/min/1.73sq m Kidney failure: <15 mL/min/1.73sq m eGFR calculated using average adult body mass. Additional eGFR calculator available at: http://www.[address] [employer]/multiple_crcl_2012.htm Performed By: #### C DP, MELVIN, BMPX, IPF #### [address] [address] Wheat Buyer: Francisco J Fonseca MD Anion gap [Moles/Vol] 13 mmol/L Normal 9-17 [facility] Comment on above: Performed By: #### C DP, MELVIN, BMPX, IPF #### [facility] [address] [place] [address] Wheat Buyer: Francisco J Fonseca MD Calcium [Mass/Vol] 8.4 mg/dL Low 8.6-10.4 [facility] Comment on above: Performed By: #### C DP, MELVIN, BMPX, IPF #### [facility] [address] [place] [address] Wheat Buyer: Francisco J Fonseca MD Chloride [Moles/Vol] 101 mmol/L Normal 98-107 [facility] Comment on above: Performed By: #### C DP, MELVIN, BMPX, IPF #### [facility] [address] [place] [address] Wheat Buyer: Francisco J Fonseca MD CO2 [Moles/Vol] 23 mmol/L Normal 20-31 [facility] Comment on above: Performed By: #### C DP, MELVIN, BMPX, IPF #### [facility] [address] [place] [address] Wheat Buyer: Francisco J Fonseca MD Creatinine [Mass/Vol] 0.73 mg/dL Normal 0.70-1.20 [facility] Comment on above: Performed By: #### C DP, MELVIN, BMPX, IPF #### [facility] [address] [place] [address] Wheat Buyer: Francisco J Fonseca MD GFR, Amer >60 Normal >[address] [facility] Comment on above: Performed By: #### C DP, MELVIN, BMPX, IPF #### [facility] [address] [place] [address] Wheat Buyer: Francisco J Fonseca MD GFR,non Amer >60 Normal >60 [facility] Comment on above: Performed By: #### C DP, MELVIN, BMPX, IPF #### [facility] [address] [place] [address] Wheat Buyer: Francisco J Fonseca MD Glucose [Mass/Vol] 124 mg/dL High 70-99 [facility] Comment on above: Performed By: #### C DP, MELVIN, BMPX, IPF #### [facility] [address] [place] [address] Wheat Buyer: Francisco J Fonseca MD Potassium [Moles/Vol] 3.9 mmol/L Normal 3.7-5.3 [facility] Comment on above: Performed By: #### C DP, MELVIN, BMPX, IPF #### [facility] [address] [place] [address] Wheat Buyer: Francisco J Fonseca MD Sodium [Moles/Vol] 137 mmol/L Normal 135-144 [facility] Comment on above: Performed By: #### C DP, MELVIN, BMPX, IPF #### [facility] [address] [place] [address] Wheat Buyer: Francisco J Fonseca MD Urea nitrogen [Mass/Vol] 24 mg/dL High 8-23 [facility] Comment on above: Performed By: #### C DP, MELVIN, BMPX, IPF #### [facility] [address] [place] [address] Wheat Buyer: Francisco J Fonseca MD (cont.) [facility] Comment on above: Result Comment: Aver age GFR for 70 or more years old: 75 mL/min/1.73sq m Chronic Kidney Disease: <60 mL/min/1.73sq m Kidney failure: <15 mL/min/1.73sq m eGFR calculated using average adult body mass. Additional eGFR calculator available at: http://www.[address] [employer].StyleSaint/multiple_crcl_2012.htm Performed By: #### B MPX, MELVIN #### [facility] [address] [place] [address] Wheat Buyer: Francisco J Fonseca MD Anion gap [Moles/Vol] 12 mmol/L Normal 9-17 [facility] Comment on above: Performed By: #### B MPX, MELVIN #### [facility] [address] [place] [address] Wheat Buyer: Francisco J Fonseca MD Calcium [Mass/Vol] 8.5 mg/dL Low 8.6-10.4 [facility] Comment on above: Performed By: #### B MPX, MELVIN #### [facility] [address] [place] [address] Wheat Buyer: Francisco J Fonseca MD Chloride [Moles/Vol] 101 mmol/L Normal 98-107 [facility] Comment on above: Performed By: #### B MPX, MELVIN #### [facility] [address] [place] [address] Wheat Buyer: Francisco J Fonseca MD CO2 [Moles/Vol] 23 mmol/L Normal 20-31 [facility] Comment on above: Performed By: #### B MPX, MELVIN #### [address] [address] Wheat Buyer: Francisco J Fonseca MD Creatinine [Mass/Vol] 0.82 mg/dL Normal 0.70-1.20 [facility] Comment on above: Performed By: #### B MPX, MELVIN #### [address] [address] Wheat Buyer: Francisco J Fonseca MD GFR, Amer >60 Normal >[address] [facility] Comment on above: Performed By: #### B MPX, MELVIN #### [address] [address] Wheat Buyer: Francisco J Fonseca MD GFR,non Amer >60 Normal >60 [facility] Comment on above: Performed By: #### B MPX, MELVIN #### [address] [address] Wheat Buyer: Francisco J Fonseca MD Glucose [Mass/Vol] 100 mg/dL High 70-99 [facility] Comment on above: Performed By: #### B MPX, MELVIN #### [address] [address] Wheat Buyer: Francisco J Fonseca MD Potassium [Moles/Vol] 3.9 mmol/L Normal 3.7-5.3 [facility] Comment on above: Performed By: #### B MPX, MELVIN #### [facility] [address] [place] [address] Wheat Buyer: Francisco J Fonseca MD Sodium [Moles/Vol] 136 mmol/L Normal 135-144 [facility] Comment on above: Performed By: #### B MPX, MELVIN #### [facility] [address] [place] [address] Wheat Buyer: Francisco J Fonseca MD Urea nitrogen [Mass/Vol] 26 mg/dL High 8-23 [facility] Comment on above: Performed By: #### B MPX, MELVIN #### [address] [address] Wheat Buyer: Francisco J Fonseca MD (cont.) [facility] Comment on above: Result Comment: Aver age GFR for 70 or more years old: 75 mL/min/1.73sq m Chronic Kidney Disease: <60 mL/min/1.73sq m Kidney failure: <15 mL/min/1.73sq m eGFR calculated using average adult body mass. Additional eGFR calculator available at: http://www.[employer]/multiple_crcl_2012.htm Performed By: #### C DP #### [address] [address] Wheat Buyer: Francisco J Fonseca MD Anion gap [Moles/Vol] 11 mmol/L Normal 9-17 [facility] Comment on above: Performed By: #### C DP #### [facility] [address] [place] [address] Wheat Buyer: Francisco J Fonseca MD Calcium [Mass/Vol] 8.3 mg/dL Low 8.6-10.4 [facility] Comment on above: Performed By: #### C DP #### [facility] [address] [place] [address] Wheat Buyer: Francisco J Fonseca MD Chloride [Moles/Vol] 104 mmol/L Normal 98-107 [facility] Comment on above: Performed By: #### C DP #### [address] [address] Wheat Buyer: Francisco J Fonseca MD CO2 [Moles/Vol] 21 mmol/L Normal 20-31 [facility] Comment on above: Performed By: #### C DP #### [address] [address] Wheat Buyer: Francisco J Fonseca MD Creatinine [Mass/Vol] 0.83 mg/dL Normal 0.70-1.20 [facility] Comment on above: Performed By: #### C DP #### [address] [address] Wheat Buyer: Francisco J Fonseca MD GFR, Amer >60 Normal >[address] [facility] Comment on above: Performed By: #### C DP #### [address] [address] Wheat Buyer: Francisco J Fonseca MD GFR,non Amer >60 Normal >60 [facility] Comment on above: Performed By: #### C DP #### [address] [address] Wheat Buyer: Francisco J Fonseca MD Glucose [Mass/Vol] 71 mg/dL Normal 70-99 [facility] Comment on above: Performed By: #### C DP #### [address] [address] Wheat Buyer: Francisco J Fonseca MD Potassium [Moles/Vol] 4.5 mmol/L Normal 3.7-5.3 [facility] Comment on above: Result Comment: SPEC IMEN SLIGHTLY HEMOLYZED, RESULTS MAY BE ADVERSELY AFFECTED. Performed By: #### C DP #### [address] [address] Wheat Buyer: Francisco J Fonseca MD Sodium [Moles/Vol] 136 mmol/L Normal 135-144 [facility] Comment on above: Performed By: #### C DP #### [place] [address] [employer] Buyer: Francisco J Fonseca MD Urea nitrogen [Mass/Vol] 29 mg/dL High 8-23 [facility] Comment on above: Performed By: #### C DP #### [place] [address] Wheat Buyer: Francisco J Fonseca MD CBC with Diffon 01-04-2022 Abs. Basophil 0.04 k/uL Normal 0.00-0.20 [facility] Comment on above: Performed By: #### C DP #### [place] [address] Wheat Buyer: Francisco J Fonseca MD Abs. Eosinophil <0.03 Normal 0.00-0.44 [facility] Comment on above: Performed By: #### C DP #### [place] [address] Wheat Buyer: Francisco J Fonseca MD Abs.Imm.Granulocyte 0.20 k/uL Normal 0.00-0.30 [facility] Comment on above: Performed By: #### C DP #### [place] [address] Wheat Buyer: Francisco J Fonseca MD Abs.Neutrophil (Seg) 18.94 k/uL High 1.50-8.10 [facility] Comment on above: Performed By: #### C DP #### [place] [address] Wheat Buyer: Francisco J Fonseca MD Basophils/100 WBC (Bld) 0 % Normal 0-2 [facility] Comment on above: Performed By: #### C DP #### [address] [address] Wheat Buyer: Francisco J Fonseca MD Eosinophils/100 WBC (Bld) 0 % Low 1-4 [facility] Comment on above: Performed By: #### C DP #### [address] [address] Wheat Buyer: Francisco J Fonseca MD Erythrocyte distribution width (RBC) [Ratio] 19.0 % High 11.8-14.4 [facility] Comment on above: Performed By: #### C DP #### [address] [address] Wheat Buyer: Francisco J Fonseca MD Hematocrit (Bld) [Volume fraction] 35.1 % Low 40.7-50.3 [facility] Comment on above: Performed By: #### C DP #### [address] [address] Wheat Buyer: Francisco J Fonseca MD Hemoglobin (Bld) [Mass/Vol] 12.0 g/dL Low 13.0-17.0 [facility] Comment on above: Performed By: #### C DP #### [address] [address] Wheat Buyer: Francisco J Fonseca MD Immature granulocytes/100 WBC (Bld) 1 % High 0 [facility] Comment on above: Performed By: #### C DP #### [address] [address] Wheat Buyer: Francisco J Fonseca MD Lymphocytes (Bld) [#/Vol] 0.89 10*3/uL Low 1.10-3.70 [facility] Comment on above: Performed By: #### C DP #### [address] [address] Wheat Buyer: Francisco J Fonseca MD Lymphocytes/100 WBC (Bld) 4 % Low 24-43 [facility] Comment on above: Performed By: #### C DP #### [address] [address] Wheat Buyer: Francisco J Fonseca MD MCH (RBC) [Entitic mass] 27.6 pg Normal 25.2-33.5 [facility] Comment on above: Performed By: #### C DP #### [address] [address] Wheat Buyer: Francisco J Fonseca MD MCHC (RBC) [Mass/Vol] 34.2 g/dL Normal 28.4-34.8 [facility] Comment on above: Performed By: #### C DP #### [address] [address] Wheat Buyer: Francisco J Fonseca MD MCV (RBC) [Entitic vol] 80.7 fL Low 82.6-102.9 [facility] Comment on above: Performed By: #### C DP #### [address] [address] Wheat Buyer: Francisco J Fonseca MD Monocytes (Bld) [#/Vol] 1.33 10*3/uL High 0.10-1.20 [facility] Comment on above: Performed By: #### C DP #### [address] [address] Wheat Buyer: Francisco J Fonseca MD Monocytes/100 WBC (Bld) 6 % Normal 3-12 [facility] Comment on above: Performed By: #### C DP #### [address] [address] Wheat Buyer: Francisco J Fonseca MD Neutrophil (Seg) 89 % High 36-[address] [facility] Comment on above: Performed By: #### C DP #### [address] [address] Wheat Buyer: Francisco J Fonseca MD NRBC Automated 0.0 per 100 WBC Normal 0.0 [facility] Comment on above: Performed By: #### C DP #### [address] [address] Wheat Buyer: Francisco J Fonseca MD Platelet mean volume (Bld) [Entitic vol] 12.3 fL Normal 8.1-13.5 [facility] Comment on above: Performed By: #### C DP #### [address] [address] Wheat Buyer: Francisco J Fonseca MD Platelets (Bld) [#/Vol] 245 10*3/uL Normal 138-453 [facility] Comment on above: Performed By: #### C DP #### [address] [address] Wheat Buyer: Francisco J Fonseca MD RBC (Bld) [#/Vol] 4.35 10*6/uL Normal 4.21-5.77 [facility] Comment on above: Performed By: #### C DP #### [address] [address] Wheat Buyer: Francisco J Fonseca MD RBC morphology finding Nom (Bld) ANISOCYTOSIS PRESENT Normal [facility] Comment on above: Result Comment: MICR OCYTOSIS PRESENT Performed By: #### C DP #### [address] [address] Wheat Buyer: Francisco J Fonseca MD WBC (Bld) [#/Vol] 21.4 10*3/uL High 3.5-11.3 [facility] Comment on above: Performed By: #### C DP #### [address] [address] Wheat Buyer: Francisco J Fonseca MD Cult,Urineon 01-04-2022 Cult,Urine Specimen Description .INDWELLING CATH URINE Culture NO GROWTH Report Status FINAL 01/04/2022 Normal [facility] Comment on above: Performed By: #### C DP, MELVIN, BMPX, IPF #### [facility] [address] [id number] Wheat Buyer: Francisco J Fonseca MD Laboratory - Chemistry and C hemistry - challengeon 01-04-2022 Anion gap [Moles/Vol] 15 mmol/L 9 - 17 mmol/L [employer] Calcium [Mass/Vol] 8.2 mg/dL Low 8.6 - 10. 4 mg/dL [facility] Chloride [Moles/Vol] 98 mmol/L 98 - 10 7 mmol/L [facility] CO2 [Moles/Vol] 23 mmol/L 20 - 31 mmol/L [facility] Creatinine [Mass/Vol] 0.66 mg/dL Low 0.70 - 1.20 mg/dL [facility] GFR/1.73 sq M.predicted MDRD (S/P/Bld) [Vol rate/Area] [facility] Comment on above: Average GFR for 70 o r more years old: 75 mL/min/1.73sq m Chronic Kidney Disease: <60 mL/min/1.73sq m Kidney failure: <15 mL/min/1.73sq m eGFR calculated using average adult body mass. Additional eGFR calculator available at: http://www.[address] [employer]/multiple_crcl_2011.htm Glucose [Mass/Vol] 90 mg/dL 70 - 99 mg/dL [employer] Phosphate [Mass/Vol] 1.9 mg/dL Low 2.5 - 4 .5 mg/dL [facility] Potassium [Moles/Vol] 3.7 mmol/L 3.7 - 5.3 mmol/L [facility] Sodium [Moles/Vol] 136 mmol/L 135 - 144 mmol/L [facility] Urea nitrogen (BldV) [Mass/Vol] 20 mg/dL 8 - 23 mg/dL [facility] Magnesium [Mass/Vol] 1.5 mg/dL Low 1.6 - 2 .6 mg/dL [facility] Anion gap [Moles/Vol] 12 mmol/L 9 - 17 mmol/L [facility] Calcium [Mass/Vol] 8.1 mg/dL Low 8.6 - 10. 4 mg/dL [facility] Chloride [Moles/Vol] 99 mmol/L 98 - 10 7 mmol/L [facility] CO2 [Moles/Vol] 23 mmol/L 20 - 31 mmol/L [facility] Creatinine [Mass/Vol] 0.61 mg/dL Low 0.70 - 1.20 mg/dL [facility] GFR/1.73 sq M.predicted MDRD (S/P/Bld) [Vol rate/Area] [facility] Comment on above: Average GFR for 70 o r more years old: 75 mL/min/1.73sq m Chronic Kidney Disease: <60 mL/min/1.73sq m Kidney failure: <15 mL/min/1.73sq m eGFR calculated using average adult body mass. Additional eGFR calculator available at: http://www.[employer]/multiple_crcl_2012.htm Glucose [Mass/Vol] 125 mg/dL High 70 - 99 mg/dL [facility] Potassium [Moles/Vol] 3.4 mmol/L Low 3.7 - 5.3 mmol/L [facility] Sodium [Moles/Vol] 134 mmol/L Low 135 - 144 mmol/L [facility] Urea nitrogen (BldV) [Mass/Vol] 19 mg/dL 8 - 23 mg/dL [facility] Phosphate [Mass/Vol] 2.2 mg/dL Low 2.5 - 4 .5 mg/dL [facility] Anion gap [Moles/Vol] 13 mmol/L 9 - 17 mmol/L [facility] Calcium [Mass/Vol] 8.4 mg/dL Low 8.6 - 10. 4 mg/dL [facility] Chloride [Moles/Vol] 101 mmol/L 98 - 10 7 mmol/L [facility] CO2 [Moles/Vol] 23 mmol/L 20 - 31 mmol/L [facility] Creatinine [Mass/Vol] 0.73 mg/dL 0.70 - 1.20 mg/dL [facility] GFR/1.73 sq M.predicted MDRD (S/P/Bld) [Vol rate/Area] [facility] Comment on above: Average GFR for 70 o r more years old: 75 mL/min/1.73sq m Chronic Kidney Disease: <60 mL/min/1.73sq m Kidney failure: <15 mL/min/1.73sq m eGFR calculated using average adult body mass. Additional eGFR calculator available at: http://www.Jangl SMS/multiple_crcl_2012.htm Glucose [Mass/Vol] 124 mg/dL High 70 - 99 mg/dL [facility] [employer] Phosphate [Mass/Vol] 2.5 mg/dL 2.5 - 4 .5 mg/dL [facility] Potassium [Moles/Vol] 3.9 mmol/L 3.7 - 5.3 mmol/L [facility] Sodium [Moles/Vol] 137 mmol/L 135 - 144 mmol/L [facility] Urea nitrogen (BldV) [Mass/Vol] 24 mg/dL High 8 - 23 mg/dL [facility] Glucose [Mass/Vol] 108 mg/dL 75 - 110 mg/dL [facility] Anion gap [Moles/Vol] 12 mmol/L 9 - 17 mmol/L [facility] [employer] Calcium [Mass/Vol] 8.5 mg/dL Low 8.6 - 10. 4 mg/dL [facility] Chloride [Moles/Vol] 101 mmol/L 98 - 10 7 mmol/L [facility] CO2 [Moles/Vol] 23 mmol/L 20 - 31 mmol/L [facility] Creatinine [Mass/Vol] 0.82 mg/dL 0.70 - 1.20 mg/dL [facility] GFR/1.73 sq M.predicted MDRD (S/P/Bld) [Vol rate/Area] [facility] Comment on above: Average GFR for 70 o r more years old: 75 mL/min/1.73sq m Chronic Kidney Disease: <60 mL/min/1.73sq m Kidney failure: <15 mL/min/1.73sq m eGFR calculated using average adult body mass. Additional eGFR calculator available at: http://www.Jangl SMS/multiple_crcl_2012.htm Glucose [Mass/Vol] 100 mg/dL High 70 - 99 mg/dL [facility] [employer] Phosphate [Mass/Vol] 2.7 mg/dL 2.5 - 4 .5 mg/dL [facility] Potassium [Moles/Vol] 3.9 mmol/L 3.7 - 5.3 mmol/L [facility] Sodium [Moles/Vol] 136 mmol/L 135 - 144 mmol/L [facility] Urea nitrogen (BldV) [Mass/Vol] 26 mg/dL High 8 - 23 mg/dL [facility] Glucose [Mass/Vol] 81 mg/dL 75 - 110 mg/dL [facility] Anion gap [Moles/Vol] 11 mmol/L 9 - 17 mmol/L [facility] Calcium [Mass/Vol] 8.3 mg/dL Low 8.6 - 10. 4 mg/dL [facility] Chloride [Moles/Vol] 104 mmol/L 98 - 10 7 mmol/L [facility] CO2 [Moles/Vol] 21 mmol/L 20 - 31 mmol/L [facility] Creatinine [Mass/Vol] 0.83 mg/dL 0.70 - 1.20 mg/dL [facility] GFR/1.73 sq M.predicted MDRD (S/P/Bld) [Vol rate/Area] [facility] Comment on above: Average GFR for 70 o r more years old: 75 mL/min/1.73sq m Chronic Kidney Disease: <60 mL/min/1.73sq m Kidney failure: <15 mL/min/1.73sq m eGFR calculated using average adult body mass. Additional eGFR calculator available at: http://www.Jangl SMS/multiple_crcl_2012.htm Glucose [Mass/Vol] 71 mg/dL 70 - 99 mg/dL [email or web address] [employer] Phosphate [Mass/Vol] 3.2 mg/dL 2.5 - 4 .5 mg/dL [facility] Potassium [Moles/Vol] 4.5 mmol/L 3.7 - 5.3 mmol/L [facility] Comment on above: SPECIMEN SLIGHTLY HE MOLYZED, RESULTS MAY BE ADVERSELY AFFECTED. Sodium [Moles/Vol] 136 mmol/L 135 - 144 mmol/L [facility] Urea nitrogen (BldV) [Mass/Vol] 29 mg/dL High 8 - 23 mg/dL [facility] Laboratory - Hematology and Cell countson 01-04-2022 Basophils (Bld) [#/Vol] 0.04 10*3/uL [facility] Basophils/100 WBC (Bld) 0 % 0 - 2 % [facility] Eosinophils/100 WBC (Bld) 0 % Low 1 - 4 % [facility] Hematocrit (Bld) [Volume fraction] 35.1 % Low 40.7 - 50.3 % [facility] Hemoglobin (Bld) [Mass/Vol] 12.0 g/dL Low 13.0 - 17.0 g/dL [facility] Immature granulocytes/100 WBC (Bld) 1 % High 0 [facility] Lymphocytes/100 WBC (Bld) 4 % Low 24 - 43 % [facility] MCH (RBC) [Entitic mass] 27.6 pg 25.2 - 33.5 pg [facility] MCHC (RBC) [Mass/Vol] 34.2 g/dL 28.4 - 34.8 g/dL [facility] MCV (RBC) [Entitic vol] 80.7 fL Low 82.6 - 102.9 fL [facility] Monocytes/100 WBC (Bld) 6 % 3 - 12 % [facility] Platelet distribution width (Bld) [Ratio] 19.0 % High 11.8 - 14.4 % [facility] Platelet mean volume (Bld) [Entitic vol] 12.3 fL 8.1 - 13.5 fL [facility] Platelets (Bld) [#/Vol] 245 10*3/uL [facility] RBC (Bld) [#/Vol] 4.35 10*6/uL 4.21 - 5.77 m/uL [facility] RBC (Bld) [#/Vol] ANISOCYTOSIS PRESENT [facility] Comment on above: MICROCYTOSIS PRESENT Segmented neutrophils/100 WBC (Bld) 89 % High 36 - 65 % [facility] WBC (Bld) [#/Vol] 21.4 10*3/uL High [facility] Laboratory - Microbiology an d Antimicrobial susceptibilityon 01-04-2022 Bacteria identified Cx Nom (U) NO GROWTH [facility] Magnesiumon 01-04-2022 Magnesium [Mass/Vol] 1.5 mg/dL Low 1.6-2.6 [facility] Comment on above: Performed By: #### C DP, MELVIN, BMPX, IPF #### [employer] [address] [place] [address] [employer]er: Francisco J Fonseca MD No Panel Informationon [...] [facility] GFR Non- >60 >60 mL/min [facility] Interpretation and review of laboratory results Abnormal [facility] Absolute Eos # <0.03 [facility] Absolute Immature Granulocyte 0.20 [facility] Absolute Lymph # 0.89 Low [facility] Absolute Merrick # 1.33 High [facility] Interpretation and review of laboratory results Abnormal [facility] NRBC Automated 0.0 0.0 per 100 WBC [facility] Segs Absolute 18.[address] [facility] Specimen Description .INDWELLING CATH URINE [facility] Phosphorus, Inorg.on 022 Phosphorus, Inorg. 2.2 mg/dL Low 2.5-4.5 [facility] Comment on above: Performed By: #### C DP, MELVIN, BMPX, IPF #### [facility] [address] [place] [address] [employer]er: Francisco J Fonseca MD Phosphorus, Inorg. 2.5 mg/dL Normal 2.5-4.5 [facility] Comment on above: Performed By: #### C DP, MELVIN, BMPX, IPF #### [facility] [address] [place] [address] [employer] Buyer: Francisco J Fonseca MD Phosphorus, Inorg. 2.7 mg/dL Normal 2.5-4.5 [facility] Comment on above: Performed By: #### B MPX, MELVIN #### [facility] [address] [place] [address] Wheat Buyer: Francisco J Fonseca MD Phosphorus, Inorg. 3.2 mg/dL Normal 2.5-4.5 [facility] Comment on above: Performed By: #### C DP #### [facility] [place] [address] Wheat Buyer: Francisco J Fonseca MD Basic Metab w/rfx MGon 01-03 (cont.) Normal [facility] Comment on above: Result Comment: Aver age GFR for 70 or more years old: 75 mL/min/1.73sq m Chronic Kidney Disease: <60 mL/min/1.73sq m Kidney failure: <15 mL/min/1.73sq m eGFR calculated using average adult body mass. Additional eGFR calculator available at: http://www.Jangl SMS/multiple_crcl_2011.htm Performed By: #### C DP, MELVIN, BMPX, IPF #### [facility] [address] [place] [address] [employer]er: Francisco J Fonseca MD Anion gap [Moles/Vol] 12 mmol/L Normal 9-17 [facility] Comment on above: Performed By: #### C DP, MELVIN, BMPX, IPF #### [address] [address] [employer] Buyer: Francisco J Fonseca MD Calcium [Mass/Vol] 8.3 mg/dL Low 8.6-10.4 [facility] Comment on above: Performed By: #### C DP, MELVIN, BMPX, IPF #### [facility] [address] [place] [address] [employer] Buyer: Francisco J Fonseca MD Chloride [Moles/Vol] 102 mmol/L Normal 98-107 [facility] Comment on above: Performed By: #### C DP, MELVIN, BMPX, IPF #### [facility] [address] [place] [address] Wheat Buyer: Francisco J Fonseca MD CO2 [Moles/Vol] 21 mmol/L Normal 20-31 [facility] Comment on above: Performed By: #### C DP, MELVIN, BMPX, IPF #### [facility] [address] [place] [address] [employer] Buyer: Francisco J Fonseca MD Creatinine [Mass/Vol] 0.88 mg/dL Normal 0.70-1.20 [facility] Comment on above: Performed By: #### C DP, MELVIN, BMPX, IPF #### [facility] [address] [place] [address] [employer]er: Francisco J Fonseca MD GFR, Amer >60 Normal >[address] [facility] Comment on above: Performed By: #### C DP, MELVIN, BMPX, IPF #### [facility] [address] [place] [address] Wheat Buyer: Francisco J Fonseca MD GFR,non Amer >60 Normal >60 [facility] Comment on above: Performed By: #### C DP, MELVIN, BMPX, IPF #### [facility] [address] [place] [address] [employer] Buyer: Francisco J Fonseca MD Glucose [Mass/Vol] 74 mg/dL Normal 70-99 [facility] Comment on above: Performed By: #### C DP, MELVIN, BMPX, IPF #### [facility] [address] [place] [address] Wheat Buyer: Francisco J Fonseca MD Potassium [Moles/Vol] 4.2 mmol/L Normal 3.7-5.3 [facility] Comment on above: Performed By: #### C DP, MELVIN, BMPX, IPF #### [facility] [address] [place] [address] [employer] Buyer: Francisco J Fonseca MD Sodium [Moles/Vol] 135 mmol/L Normal 135-144 [facility] Comment on above: Performed By: #### C DP, MELVIN, BMPX, IPF #### [facility] [address] [place] [address] [employer] Buyer: Francisco J Fonseca MD Urea nitrogen [Mass/Vol] 29 mg/dL High 8-23 [facility] Comment on above: Performed By: #### C DP, MELVIN, BMPX, IPF #### [address] [address] Wheat Buyer: Francsico J Fonseca MD (cont.) [facility] Comment on above: Result Comment: Aver age GFR for 70 or more years old: 75 mL/min/1.73sq m Chronic Kidney Disease: <60 mL/min/1.73sq m Kidney failure: <15 mL/min/1.73sq m eGFR calculated using average adult body mass. Additional eGFR calculator available at: http://www.Jangl SMS/multiple_crcl_2012.htm Performed By: #### C DP #### [address] [address] Wheat Buyer: Francisco J Fonseca MD Anion gap [Moles/Vol] 12 mmol/L Normal 9-17 [facility] Comment on above: Performed By: #### C DP #### [address] [address] Wheat Buyer: Francisco J Fonseca MD Calcium [Mass/Vol] 8.4 mg/dL Low 8.6-10.4 [facility] Comment on above: Performed By: #### C DP #### [address] [address] Wheat Buyer: Francisco J Fonseca MD Chloride [Moles/Vol] 103 mmol/L Normal 98-107 [facility] Comment on above: Performed By: #### C DP #### [address] [address] Wheat Buyer: Francisco J Fonseca MD CO2 [Moles/Vol] 21 mmol/L Normal 20-31 [facility] Comment on above: Performed By: #### C DP #### [address] [address] Wheat Buyer: Francisco J Fonseca MD Creatinine [Mass/Vol] 0.93 mg/dL Normal 0.70-1.20 [facility] Comment on above: Performed By: #### C DP #### [address] [address] Wheat Buyer: Francisco J Fonseca MD GFR, Amer >60 Normal >[address] [facility] Comment on above: Performed By: #### C DP #### [address] [address] Wheat Buyer: Francisco J Fonseca MD GFR,non Amer >60 Normal >60 [facility] Comment on above: Performed By: #### C DP #### [address] [address] Wheat Buyer: Francisco J Fonseca MD Glucose [Mass/Vol] 155 mg/dL High 70-99 [facility] Comment on above: Performed By: #### C DP #### [address] [address] Wheat Buyer: Francisco J Fonseca MD Potassium [Moles/Vol] 3.9 mmol/L Normal 3.7-5.3 [facility] Comment on above: Performed By: #### C DP #### [address] [address] Wheat Buyer: Francisco J Fonseca MD Sodium [Moles/Vol] 136 mmol/L Normal 135-144 [facility] Comment on above: Performed By: #### C DP #### [address] [address] Wheat Buyer: Francisco J Fonseca MD Urea nitrogen [Mass/Vol] 28 mg/dL High 8-23 [facility] Comment on above: Performed By: #### C DP #### [address] [address] Wheat Buyer: Francisco J Fonseca MD (cont.) Normal [facility] Comment on above: Result Comment: Aver age GFR for 70 or more years old: 75 mL/min/1.73sq m Chronic Kidney Disease: <60 mL/min/1.73sq m Kidney failure: <15 mL/min/1.73sq m eGFR calculated using average adult body mass. Additional eGFR calculator available at: http://www.Jangl SMS/multiple_crcl_2011.htm Performed By: #### C DP, MELVIN, BMPX, IPF #### [facility] [address] [place] [address] Wheat Buyer: Francisco J Fonseca MD Anion gap [Moles/Vol] 11 mmol/L Normal 9-17 [facility] Comment on above: Performed By: #### C DP, MELVIN, BMPX, IPF #### [address] [address] [employer] Buyer: Francisco J Fonseca MD Calcium [Mass/Vol] 8.4 mg/dL Low 8.6-10.4 [facility] Comment on above: Performed By: #### C DP, MELVIN, BMPX, IPF #### [address] [address] Wheat Buyer: Francisco J Fonseca MD Chloride [Moles/Vol] 103 mmol/L Normal 98-107 [facility] Comment on above: Performed By: #### C DP, MELVIN, BMPX, IPF #### [facility] [address] [place] [address] Wheat Buyer: Francisco J Fonseca MD CO2 [Moles/Vol] 24 mmol/L Normal 20-31 [facility] Comment on above: Performed By: #### C DP, MELVIN, BMPX, IPF #### [facility] [address] [place] [address] Wheat Buyer: Francisco J Fonseca MD Creatinine [Mass/Vol] 0.92 mg/dL Normal 0.70-1.20 [facility] Comment on above: Performed By: #### C DP, MELVIN, BMPX, IPF #### [facility] [address] [place] [address] Wheat Buyer: Francisco J Fonseca MD GFR, Amer >60 Normal >[address] [facility] Comment on above: Performed By: #### C DP, MELVIN, BMPX, IPF #### [facility] [address] [place] [address] Wheat Buyer: Francisco J Fonseca MD GFR,non Amer >60 Normal >60 [facility] Comment on above: Performed By: #### C DP, MELVIN, BMPX, IPF #### [facility] [address] [place] [address] Wheat Buyer: Francisco J Fonseca MD Glucose [Mass/Vol] 226 mg/dL High 70-99 [facility] Comment on above: Performed By: #### C DP, MELVIN, BMPX, IPF #### [facility] [address] [place] [address] Wheat Buyer: Francisco J Fonseca MD Potassium [Moles/Vol] 5.0 mmol/L Normal 3.7-5.3 [facility] Comment on above: Performed By: #### C DP, MELVIN, BMPX, IPF #### [facility] [address] [place] [address] Wheat Buyer: Francisco J Fonseca MD Sodium [Moles/Vol] 138 mmol/L Normal 135-144 [facility] Comment on above: Performed By: #### C DP, MELVIN, BMPX, IPF #### [facility] [address] [place] [address] Wheat Buyer: Francisco J Fonseca MD Urea nitrogen [Mass/Vol] 26 mg/dL High 8-23 [facility] Comment on above: Performed By: #### C DP, MELVIN, BMPX, IPF #### [address] [address] Wheat Buyer: Francisco J Fonseca MD (cont.) [facility] Comment on above: Result Comment: Aver age GFR for 70 or more years old: 75 mL/min/1.73sq m Chronic Kidney Disease: <60 mL/min/1.73sq m Kidney failure: <15 mL/min/1.73sq m eGFR calculated using average adult body mass. Additional eGFR calculator available at: http://www.Jangl SMS/multiple_crcl_2012.htm Performed By: #### C DP, MELVIN, BMPX, IPF #### [address] [address] [employer] Buyer: Francisco J Fonseca MD Anion gap [Moles/Vol] 13 mmol/L Normal 9-17 [facility] Comment on above: Performed By: #### C DP, MELVIN, BMPX, IPF #### [address] [address] Wheat Buyer: Francisco J Fonseca MD Calcium [Mass/Vol] 8.4 mg/dL Low 8.6-10.4 [facility] Comment on above: Performed By: #### C DP, MELVIN, BMPX, IPF #### [address] [address] Wheat Buyer: Francisco J Fonseca MD Chloride [Moles/Vol] 104 mmol/L Normal 98-107 [facility] Comment on above: Performed By: #### C DP, MELVIN, BMPX, IPF #### [address] [address] Wheat Buyer: Francisco J Fonseca MD CO2 [Moles/Vol] 21 mmol/L Normal 20-31 [facility] Comment on above: Performed By: #### C DP, MELVIN, BMPX, IPF #### [address] [phone] Wheat Buyer: Francisco J Fonseca MD Creatinine [Mass/Vol] 0.84 mg/dL Normal 0.70-1.20 [facility] Comment on above: Performed By: #### C DP, MELVIN, BMPX, IPF #### [facility] [address] [place] [address] Wheat Buyer: Francisco J Fonseca MD GFR, Amer >60 Normal >[address] [facility] Comment on above: Performed By: #### C DP, MELVIN, BMPX, IPF #### [facility] [address] [place] [address] Wheat Buyer: Francisco J Fonseca MD GFR,non Amer >60 Normal >60 [facility] Comment on above: Performed By: #### C DP, MELVIN, BMPX, IPF #### [facility] [address] [place] [address] Wheat Buyer: Francisco J Fonseca MD Glucose [Mass/Vol] 176 mg/dL High 70-99 [facility] Comment on above: Performed By: #### C DP, MELVIN, BMPX, IPF #### [facility] [address] [place] [address] Wheat Buyer: Francisco J Fonseca MD Potassium [Moles/Vol] 4.5 mmol/L Normal 3.7-5.3 [facility] Comment on above: Performed By: #### C DP, MELVIN, BMPX, IPF #### [facility] [address] [place] [address] Wheat Buyer: Francisco J Fonseca MD Sodium [Moles/Vol] 138 mmol/L Normal 135-144 [facility] Comment on above: Performed By: #### C DP, MELVIN, BMPX, IPF #### [facility] [address] [place] [address] Wheat Buyer: Francisco J Fonseca MD Urea nitrogen [Mass/Vol] 21 mg/dL Normal 8-23 [facility] Comment on above: Performed By: #### C DP, MELVIN, BMPX, IPF #### [place] [address] Wheat Buyer: Francisco J Fonseca MD (cont.) [facility] Comment on above: Result Comment: Aver age GFR for 70 or more years old: 75 mL/min/1.73sq m Chronic Kidney Disease: <60 mL/min/1.73sq m Kidney failure: <15 mL/min/1.73sq m eGFR calculated using average adult body mass. Additional eGFR calculator available at: http://www.Jangl SMS/uSpeak_crcl_2011.htm Performed By: #### C DP, MELVIN, BMPX, IPF #### [place] [address] Wheat Buyer: Francisco J Fonseca MD Anion gap [Moles/Vol] 6 mmol/L Low 9-17 [facility] Comment on above: Performed By: #### C DP, MELVIN, BMPX, IPF #### [place] [address] Wheat Buyer: Francisco J Fonseca MD Calcium [Mass/Vol] 8.5 mg/dL Low 8.6-10.4 [facility] Comment on above: Performed By: #### C DP, MELVIN, BMPX, IPF #### [facility] [address] [place] [address] Wheat Buyer: Francisco J Fonseca MD Chloride [Moles/Vol] 105 mmol/L Normal 98-107 [facility] Comment on above: Performed By: #### C DP, MELVIN, BMPX, IPF #### [facility] [address] [place] [address] Wheat Buyer: Francisco J Fonseca MD CO2 [Moles/Vol] 25 mmol/L Normal 20-31 [facility] Comment on above: Performed By: #### C DP, MELVIN, BMPX, IPF #### [facility] [address] [place] [address] Wheat Buyer: Francisco J Fonseca MD Creatinine [Mass/Vol] 0.75 mg/dL Normal 0.70-1.20 [facility] Comment on above: Performed By: #### C DP, MELVIN, BMPX, IPF #### [facility] [address] [place] [address] Wheat Buyer: Francisco J Fonseca MD GFR, Amer >60 Normal >[address] [facility] Comment on above: Performed By: #### C DP, MELVIN, BMPX, IPF #### [facility] [address] [place] [address] Wheat Buyer: Francisco J Fonseca MD GFR,non Amer >60 Normal >60 [facility] Comment on above: Performed By: #### C DP, MELVIN, BMPX, IPF #### [facility] [address] [place] [address] Wheat Buyer: Francisco J Fonseca MD Glucose [Mass/Vol] 81 mg/dL Normal 70-99 [facility] Comment on above: Performed By: #### C DP, MELVIN, BMPX, IPF #### [facility] [address] [place] [address] Wheat Buyer: Francisco J Fonseca MD Potassium [Moles/Vol] 4.6 mmol/L Normal 3.7-5.3 [facility] Comment on above: Performed By: #### C DP, MELVIN, BMPX, IPF #### [facility] [address] [place] [address] Wheat Buyer: Francisco J Fonseca MD Sodium [Moles/Vol] 136 mmol/L Normal 135-144 [facility] Comment on above: Performed By: #### C DP, MELVIN, BMPX, IPF #### [facility] [address] [place] [address] Wheat Buyer: Francisco J Fonseca MD Urea nitrogen [Mass/Vol] 18 mg/dL Normal 8-23 [facility] Comment on above: Performed By: #### C DP, MELVIN, BMPX, IPF #### [address] [address] Wheat Buyer: Francisco J Fonseca MD CBC with Diffon 01-03-2022 Abs. Basophil 0.00 k/uL Normal 0.0-0.2 [facility] Comment on above: Performed By: #### C DP #### [place] [address] Wheat Buyer: Francisco J Fonseca MD Abs.Imm.Granulocyte 0.00 k/uL Normal 0.00-0.30 [facility] Comment on above: Performed By: #### C DP #### [place] [address] Wheat Buyer: Francisco J Fonseca MD Abs.Neutrophil (Seg) 19.89 k/uL High 1.8-7.7 [facility] Comment on above: Performed By: #### C DP #### [address] [address] Wheat Buyer: Francisco J Fonseca MD Basophils/100 WBC (Bld) 0 % Normal 0-2 [facility] Comment on above: Performed By: #### C DP #### [address] [address] Wheat Buyer: Francisco J Fonseca MD Eosinophils (Bld) [#/Vol] 0.00 10*3/uL Normal 0.0-0.4 [facility] Comment on above: Performed By: #### C DP #### [address] [address] Wheat Buyer: Francisco J Fonseca MD Eosinophils/100 WBC (Bld) 0 % Low 1-4 [facility] Comment on above: Performed By: #### C DP #### [address] [address] Wheat Buyer: Francisco J Fonseca MD Immature granulocytes/100 WBC (Bld) 0 % Normal 0 [facility] Comment on above: Performed By: #### C DP #### [address] [address] Wheat Buyer: Francisco J Fonseca MD Lymphocytes (Bld) [#/Vol] 0.88 10*3/uL Low 1.0-4.8 [facility] Comment on above: Performed By: #### C DP #### [address] [address] Wheat Buyer: Francisco J Fonseca MD Lymphocytes/100 WBC (Bld) 4 % Low 24-44 [facility] Comment on above: Performed By: #### C DP #### [address] [address] Wheat Buyer: Francisco J Fonseca MD Monocytes (Bld) [#/Vol] 1.33 10*3/uL High 0.1-0.8 [facility] Comment on above: Performed By: #### C DP #### [address] [address] Wheat Buyer: Francisco J Fonseca MD Monocytes/100 WBC (Bld) 6 % Normal 1-7 [facility] Comment on above: Performed By: #### C DP #### [address] [address] Wheat Buyer: Francisco J Fonseca MD Morphology Walter (Bld) [Interp] MICROCYTOSIS PRESENT Normal [facility] Comment on above: Result Comment: ANIS OCYTOSIS PRESENT 1+ ACANTHOCYTES Performed By: #### C DP #### [address] [address] Wheat Buyer: Francisco J Fonseca MD Neutrophil (Seg) 90 % High 36-[address] [facility] Comment on above: Performed By: #### C DP #### [address] [address] Wheat Buyer: Francisco J Fonseca MD Erythrocyte distribution width (RBC) [Ratio] 18.9 % High 11.8-14.4 [facility] Comment on above: Performed By: #### C DP #### [address] [address] [employer] Buyer: Francisco J Fonseca MD Hematocrit (Bld) [Volume fraction] 37.4 % Low 40.7-50.3 [facility] Comment on above: Performed By: #### C DP #### [address] [address] Wheat Buyer: Francisco J Fonseca MD Hemoglobin (Bld) [Mass/Vol] 12.2 g/dL Low 13.0-17.0 [facility] Comment on above: Performed By: #### C DP #### [address] [address] Wheat Buyer: Francisco J Fonseca MD MCH (RBC) [Entitic mass] 26.9 pg Normal 25.2-33.5 [facility] Comment on above: Performed By: #### C DP #### [address] [address] Wheat Buyer: Francisco J Fonseca MD MCHC (RBC) [Mass/Vol] 32.6 g/dL Normal 28.4-34.8 [facility] Comment on above: Performed By: #### C DP #### [address] [address] Wheat Buyer: Francisco J Fonseca MD MCV (RBC) [Entitic vol] 82.4 fL Low 82.6-102.9 [facility] Comment on above: Performed By: #### C DP #### [address] [address] Wheat Buyer: Francisco J Fonseca MD NRBC Automated 0.0 per 100 WBC Normal 0.0 [facility] Comment on above: Performed By: #### C DP #### [address] [address] [employer] Buyer: Francisco J Fonseca MD Platelet mean volume (Bld) [Entitic vol] 12.6 fL Normal 8.1-13.5 [facility] Comment on above: Performed By: #### C DP #### [address] [address] Wheat Buyer: Francisco J Fonseca MD Platelets (Bld) [#/Vol] 292 10*3/uL Normal 138-453 [facility] Comment on above: Performed By: #### C DP #### [address] [address] [employer] Buyer: Francisco J Fonseca MD RBC (Bld) [#/Vol] 4.54 10*6/uL Normal 4.21-5.77 [facility] Comment on above: Performed By: #### C DP #### [address] [address] Wheat Buyer: Francisco J Fonseca MD WBC (Bld) [#/Vol] 22.1 10*3/uL High 3.5-11.3 [facility] Comment on above: Performed By: #### C DP #### [address] [address] Wheat Buyer: Francisco J Fonseca MD Hemoglobin A1Con 01-03-2022 Glucose [Mass/Vol] 223 mg/dL Normal [facility] Comment on above: Result Comment: The ADA and AACC recommend providing the estimated average glucose result to permit better patient understanding of their HBA1c result. Performed By: #### C DP, MELVIN, BMPX, IPF #### [facility] [address] [place], [place] [id number] Wheat Buyer: Francisco J Fonseca MD HbA1c (Bld) [Mass fraction] 9.4 % High 4.0-6.0 [facility] Comment on above: Performed By: #### C DP, MELVIN, BMPX, IPF #### [facility] [address] [place], [place] [id number] Wheat Buyer: Francisco J Fonseca MD Laboratory - Chemistry and C hemistry - challengeon 01-03-2022 Anion gap [Moles/Vol] 12 mmol/L 9 - 17 mmol/L [facility] Calcium [Mass/Vol] 8.3 mg/dL Low 8.6 - 10. 4 mg/dL [facility] Chloride [Moles/Vol] 102 mmol/L 98 - 10 7 mmol/L [facility] CO2 [Moles/Vol] 21 mmol/L 20 - 31 mmol/L [facility] Creatinine [Mass/Vol] 0.88 mg/dL 0.70 - 1.20 mg/dL [facility] GFR/1.73 sq M.predicted MDRD (S/P/Bld) [Vol rate/Area] [facility] Comment on above: Average GFR for 70 o r more years old: 75 mL/min/1.73sq m Chronic Kidney Disease: <60 mL/min/1.73sq m Kidney failure: <15 mL/min/1.73sq m eGFR calculated using average adult body mass. Additional eGFR calculator available at: http://www.[employer].com/multiple_crcl_2012.htm Glucose [Mass/Vol] 74 mg/dL 70 - 99 mg/dL [facility] Phosphate [Mass/Vol] 3.3 mg/dL 2.5 - 4 .5 mg/dL [facility] Potassium [Moles/Vol] 4.2 mmol/L 3.7 - 5.3 mmol/L [facility] Sodium [Moles/Vol] 135 mmol/L 135 - 144 mmol/L [facility] Urea nitrogen (BldV) [Mass/Vol] 29 mg/dL High 8 - 23 mg/dL [facility] Glucose [Mass/Vol] 69 mg/dL Low 75 - 110 mg/dL [facility] Glucose [Mass/Vol] 93 mg/dL 75 - 110 mg/dL [facility] Glucose [Mass/Vol] 55 mg/dL Low 75 - 110 mg/dL [facility] Comment on above: Critical Noted Glucose [Mass/Vol] 88 mg/dL 75 - 110 mg/dL [facility] Anion gap [Moles/Vol] 12 mmol/L 9 - 17 mmol/L [facility] Calcium [Mass/Vol] 8.4 mg/dL Low 8.6 - 10. 4 mg/dL [facility] Chloride [Moles/Vol] 103 mmol/L 98 - 10 7 mmol/L [facility] CO2 [Moles/Vol] 21 mmol/L 20 - 31 mmol/L [facility] Creatinine [Mass/Vol] 0.93 mg/dL 0.70 - 1.20 mg/dL [facility] GFR/1.73 sq M.predicted MDRD (S/P/Bld) [Vol rate/Area] [facility] Comment on above: Average GFR for 70 o r more years old: 75 mL/min/1.73sq m Chronic Kidney Disease: <60 mL/min/1.73sq m Kidney failure: <15 mL/min/1.73sq m eGFR calculated using average adult body mass. Additional eGFR calculator available at: http://www.[employer]/multiple_crcl_2012.htm Glucose [Mass/Vol] 155 mg/dL High 70 - 99 mg/dL [facility] Phosphate [Mass/Vol] 2.9 mg/dL 2.5 - 4 .5 mg/dL [facility] Potassium [Moles/Vol] 3.9 mmol/L 3.7 - 5.3 mmol/L [facility] Sodium [Moles/Vol] 136 mmol/L 135 - 144 mmol/L [facility] Urea nitrogen (BldV) [Mass/Vol] 28 mg/dL High 8 - 23 mg/dL [facility] Glucose [Mass/Vol] 152 mg/dL High 75 - 110 mg/dL [facility] Glucose [Mass/Vol] 216 mg/dL High 75 - 110 mg/dL [facility] Glucose [Mass/Vol] 242 mg/dL High 75 - 110 mg/dL [facility] Glucose [Mass/Vol] 243 mg/dL High 75 - 110 mg/dL [facility] Anion gap [Moles/Vol] 11 mmol/L 9 - 17 mmol/L [facility] Calcium [Mass/Vol] 8.4 mg/dL Low 8.6 - 10. 4 mg/dL [facility] Chloride [Moles/Vol] 103 mmol/L 98 - 10 7 mmol/L [facility] CO2 [Moles/Vol] 24 mmol/L 20 - 31 mmol/L [facility] Creatinine [Mass/Vol] 0.92 mg/dL 0.70 - 1.20 mg/dL [facility] GFR/1.73 sq M.predicted MDRD (S/P/Bld) [Vol rate/Area] [facility] Comment on above: Average GFR for 70 o r more years old: 75 mL/min/1.73sq m Chronic Kidney Disease: <60 mL/min/1.73sq m Kidney failure: <15 mL/min/1.73sq m eGFR calculated using average adult body mass. Additional eGFR calculator available at: http://www.[employer]/multiple_crcl_2012.htm Glucose [Mass/Vol] 226 mg/dL High 70 - 99 mg/dL [facility] Phosphate [Mass/Vol] 3.5 mg/dL 2.5 - 4 .5 mg/dL [facility] Potassium [Moles/Vol] 5.0 mmol/L 3.7 - 5.3 mmol/L [facility] Sodium [Moles/Vol] 138 mmol/L 135 - 144 mmol/L [facility] Urea nitrogen (BldV) [Mass/Vol] 26 mg/dL High 8 - 23 mg/dL [facility] Glucose [Mass/Vol] 214 mg/dL High 75 - 110 mg/dL [facility] Anion gap [Moles/Vol] 13 mmol/L 9 - 17 mmol/L [facility] Calcium [Mass/Vol] 8.4 mg/dL Low 8.6 - 10. 4 mg/dL [facility] Chloride [Moles/Vol] 104 mmol/L 98 - 10 7 mmol/L [facility] CO2 [Moles/Vol] 21 mmol/L 20 - 31 mmol/L [facility] Creatinine [Mass/Vol] 0.84 mg/dL 0.70 - 1.20 mg/dL [facility] GFR/1.73 sq M.predicted MDRD (S/P/Bld) [Vol rate/Area] [facility] Comment on above: Average GFR for 70 o r more years old: 75 mL/min/1.73sq m Chronic Kidney Disease: <60 mL/min/1.73sq m Kidney failure: <15 mL/min/1.73sq m eGFR calculated using average adult body mass. Additional eGFR calculator available at: http://www.[employer]/multiple_crcl_2012.htm Glucose [Mass/Vol] 176 mg/dL High 70 - 99 mg/dL [facility] Phosphate [Mass/Vol] 3.1 mg/dL 2.5 - 4 .5 mg/dL [facility] Potassium [Moles/Vol] 4.5 mmol/L 3.7 - 5.3 mmol/L [facility] Sodium [Moles/Vol] 138 mmol/L 135 - 144 mmol/L [facility] Urea nitrogen (BldV) [Mass/Vol] 21 mg/dL 8 - 23 mg/dL [facility] Glucose [Mass/Vol] 126 mg/dL High 75 - 110 mg/dL [facility] Glucose [Mass/Vol] 165 mg/dL High 75 - 110 mg/dL [facility] Glucose [Mass/Vol] 142 mg/dL High 75 - 110 mg/dL [facility] Glucose [Mass/Vol] 89 mg/dL 75 - 110 mg/dL [facility] Glucose [Mass/Vol] 71 mg/dL Low 75 - 110 mg/dL [facility] Glucose [Mass/Vol] 82 mg/dL 75 - 110 mg/dL [facility] Glucose [Mass/Vol] 128 mg/dL High 75 - 110 mg/dL [facility] Anion gap [Moles/Vol] 6 mmol/L Low 9 - 17 mmol/L [facility] Calcium [Mass/Vol] 8.5 mg/dL Low 8.6 - 10. 4 mg/dL [facility] Chloride [Moles/Vol] 105 mmol/L 98 - 10 7 mmol/L [facility] CO2 [Moles/Vol] 25 mmol/L 20 - 31 mmol/L [facility] Creatinine [Mass/Vol] 0.75 mg/dL 0.70 - 1.20 mg/dL [facility] GFR/1.73 sq M.predicted MDRD (S/P/Bld) [Vol rate/Area] [facility] Comment on above: Average GFR for 70 o r more years old: 75 mL/min/1.73sq m Chronic Kidney Disease: <60 mL/min/1.73sq m Kidney failure: <15 mL/min/1.73sq m eGFR calculated using average adult body mass. Additional eGFR calculator available at: http://www.[employer]/multiple_crcl_2012.htm Glucose [Mass/Vol] 81 mg/dL 70 - 99 mg/dL [facility] Phosphate [Mass/Vol] 2.5 mg/dL 2.5 - 4 .5 mg/dL [facility] Potassium [Moles/Vol] 4.6 mmol/L 3.7 - 5.3 mmol/L [facility] Sodium [Moles/Vol] 136 mmol/L 135 - 144 mmol/L [facility] Urea nitrogen (BldV) [Mass/Vol] 18 mg/dL 8 - 23 mg/dL [facility] Glucose [Mass/Vol] 187 mg/dL High 75 - 110 mg/dL [facility] Laboratory - Hematology and Cell countson 01-03-2022 Basophils (Bld) [#/Vol] 0.00 10*3/uL [facility] Basophils/100 WBC (Bld) 0 % 0 - 2 % [facility] Eosinophils/100 WBC (Bld) 0 % Low 1 - 4 % [facility] Hematocrit (Bld) [Volume fraction] 37.4 % Low 40.7 - 50.3 % [facility] Hemoglobin (Bld) [Mass/Vol] 12.2 g/dL Low 13.0 - 17.0 g/dL [facility] Immature granulocytes/100 WBC (Bld) 0 % 0 [facility] Lymphocytes/100 WBC (Bld) 4 % Low 24 - 44 % [facility] MCH (RBC) [Entitic mass] 26.9 pg 25.2 - 33.5 pg [facility] MCHC (RBC) [Mass/Vol] 32.6 g/dL 28.4 - 34.8 g/dL [facility] MCV (RBC) [Entitic vol] 82.4 fL Low 82.6 - 102.9 fL [facility] Monocytes/100 WBC (Bld) 6 % 1 - 7 % [facility] Morphology Walter (Bld) [Interp] MICROCYTOSIS PRESENT [facility] Morphology Walter (Bld) [Interp] ANISOCYTOSIS PRESENT [facility] Morphology Walter (Bld) [Interp] 1+ ACANTHOCYTES [facility] Platelet distribution width (Bld) [Ratio] 18.9 % High 11.8 - 14.4 % [facility] Platelet mean volume (Bld) [Entitic vol] 12.6 fL 8.1 - 13.5 fL [facility] Platelets (Bld) [#/Vol] 292 10*3/uL [facility] RBC (Bld) [#/Vol] 4.54 10*6/uL 4.21 - 5.77 m/uL [facility] Segmented neutrophils/100 WBC (Bld) 90 % High 36 - 66 % [facility] WBC (Bld) [#/Vol] 22.1 10*3/uL High [facility] [employer] No Panel Informationon 01-03 GFR >60 >60 [...] Low [facility] Absolute Merrick # 1.33 High [facility] G[facility] Non- >60 >60 mL/min [facility] Interpretation and review of laboratory results Abnormal [facility] Interpretation and review of laboratory results Abnormal [facility] Phosphorus, Inorg.on 022 Phosphorus, Inorg. 3.3 mg/dL Normal 2.5-4.5 [facility] Comment on above: Performed By: #### C DP, MELVIN, BMPX, IPF #### [facility] [address] [place] [phone] [employer] Buyer: Francisco J Fonseca MD Phosphorus, Inorg. 2.9 mg/dL Normal 2.5-4.5 [facility] Comment on above: Performed By: #### C DP #### [facility] [address] [place] [address] Wheat Buyer: Francisco J Fonseca MD Phosphorus, Inorg. 3.5 mg/dL Normal 2.5-4.5 [facility] Comment on above: Performed By: #### C DP, MELVIN, BMPX, IPF #### [facility] [address] [place] [address] [employer] Buyer: Francisco J Fonseca MD Phosphorus, Inorg. 3.1 mg/dL Normal 2.5-4.5 [facility] Comment on above: Performed By: #### C DP, MELVIN, BMPX, IPF #### [facility] [address] [place] [phone] [employer] Buyer: Francisco J Fonseca MD Phosphorus, Inorg. 2.5 mg/dL Normal 2.5-4.5 [facility] Comment on above: Performed By: #### C DP, MELVIN, BMPX, IPF #### [facility] [address] [place] [address] [employer] Buyer: Francisco J Fonseca MD XR ABDOMEN FOR [...] Eulogio Winslow MD 01/02/22 Final result Normal [facility] AMYLASEon 01-02-2022 Amylase [Catalytic activity/Vol] 13 U/L Critically low 25-115 [facility] Comment on above: Performed By: #### L IPA, MARGA, LIVER, BMP #### [facility] [address] [address] [address] Kylee Bunch Basic Metabolic Profon 01-02 Glucose [Mass/Vol] 452 mg/dL Critically high 70-99 [facility] Comment on above: Performed By: #### C DP #### [place] [address] [employer] Buyer: Francisco J Fonseca MD (cont.) [facility] Comment on above: Result Comment: Aver age GFR for 70 or more years old: 75 mL/min/1.73sq m Chronic Kidney Disease: <60 mL/min/1.73sq m Kidney failure: <15 mL/min/1.73sq m eGFR calculated using average adult body mass. Additional eGFR calculator available at: http://www.[employer]/multiple_crcl_2012.htm Performed By: #### C DP #### [address] [address] [employer] Buyer: Francisco J Fonseca MD Anion gap [Moles/Vol] 12 mmol/L Normal 9-17 [facility] Comment on above: Performed By: #### C DP #### [address] [address] [employer] Buyer: Francisco J Fonseca MD Calcium [Mass/Vol] 8.6 mg/dL Normal 8.6-10.4 [facility] Comment on above: Performed By: #### C DP #### [address] [address] [employer] Buyer: Francisco J Fonseca MD Chloride [Moles/Vol] 96 mmol/L Low 98-107 [facility] Comment on above: Performed By: #### C DP #### [address] [address] [employer] Buyer: Francisco J Fonseca MD CO2 [Moles/Vol] 22 mmol/L Normal 20-31 [facility] Comment on above: Performed By: #### C DP #### [address] [address] [employer] Buyer: Francisco J Fonseca MD Creatinine [Mass/Vol] 0.81 mg/dL Normal 0.70-1.20 [facility] Comment on above: Performed By: #### C DP #### [address] [address] [employer] Buyer: Francisco J Fonseca MD GFR, Amer >60 Normal >[address] [facility] Comment on above: Performed By: #### C DP #### [address] [address] [employer] Buyer: Francisco J Fonseca MD GFR,non Amer >60 Normal >60 [facility] Comment on above: Performed By: #### C DP #### [address] [address] [employer] Buyer: Francisco J Fonseca MD Potassium [Moles/Vol] 4.1 mmol/L Normal 3.7-5.3 [facility] Comment on above: Performed By: #### C DP #### [facility] [place], [place] [phone] Wheat Buyer: Francisco J Fonseca MD Sodium [Moles/Vol] 130 mmol/L Low 135-144 [facility] Comment on above: Performed By: #### C DP #### [address] [id number] [employer] Buyer: Francisco J Fonseca MD Urea nitrogen [Mass/Vol] 19 mg/dL Normal 8-23 [facility] Comment on above: Performed By: #### C DP #### [address] [address] [employer] Buyer: Francisco J Fonseca MD CBC AUTO DIFFon 01-02-2022 BASO # 0.0 103/ul Normal 0.0-0.1 [facility] Comment on above: Performed By: #### C MP, LIPID #### [facility] [address] [address] [address] Kylee Bunch Basophils/100 WBC (Bld) 0.2 % Normal 0.2-2.0 [facility] Comment on above: Performed By: #### C MP, LIPID #### [facility] [address] [place] [address] Dr. Kylee Bunch EO # 0.1 103/ul Normal 0.0-0.7 [facility] Comment on above: Performed By: #### C MP, LIPID #### [facility] [address] [address] [address] Kylee Bunch Eosinophils/100 WBC (Bld) 0.5 % Critically low 0.9-7.0 [facility] Comment on above: Performed By: #### C MP, LIPID #### [facility] [address] [address] [address] Kylee Bunch Erythrocyte distribution width (RBC) [Ratio] 18.5 % Critically high 11.0-15.0 [facility] Comment on above: Performed By: #### C MP, LIPID #### [facility] [address] [place] [address] Dr. Kylee Bunch Hematocrit (Bld) [Volume fraction] 37.0 % Critically low 42.0-54.0 [facility] Comment on above: Performed By: #### C MP, LIPID #### [facility] [address] [place] [address] Dr. Kylee Bunch Hemoglobin (Bld) [Mass/Vol] 12.6 g/dL Critically low 14.0-18.0 [facility] Comment on above: Performed By: #### C MP, LIPID #### [facility] [address] [place] [address] Dr. Kylee Bunch IG # 0.02 10e3/ul Normal 0.00-0.03 [facility] Comment on above: Performed By: #### C MP, LIPID #### [facility] [address] [place] [address] Dr. Kylee Bunch IG % 0.2 % Normal 0.0-0.5 [facility] Comment on above: Performed By: #### C MP, LIPID #### [facility] [address] [place] [address] Dr. Kylee Bunch LYMPH # 1.2 103/ul Normal 1.2-3.8 [facility] Comment on above: Performed By: #### C MP, LIPID #### [facility] [address] [place] [address] Dr. Kyele Bunch Lymphocytes/100 WBC (Bld) 11.3 % Critically low 20.5-60.0 [facility] Comment on above: Performed By: #### C MP, LIPID #### [facility] [address] [place] [address] Dr. Kylee Bunch MANUAL DIFF REQ NO Normal [facility] Comment on above: Performed By: #### C MP, LIPID #### [facility] [address] [place] [address] Dr. Kylee Bunch MCH (RBC) [Entitic mass] 27.1 pg Normal 25.9-34.0 [facility] Comment on above: Performed By: #### C MP, LIPID #### [facility] [address] [place] [address] Dr. Kylee Bunch MCHC (RBC) [Mass/Vol] 34.1 g/dL Normal 29.9-35.2 [facility] Comment on above: Performed By: #### C MP, LIPID #### [facility] [address] [place] [address] Dr. Kylee Bunch MCV (RBC) [Entitic vol] 79.6 fL Critically low 80.0-94.0 [facility] Comment on above: Performed By: #### C MP, LIPID #### [facility] [address] [place] [address] Dr. Kylee Bunch MONO # 0.5 103/ul Normal 0.3-0.8 [facility] Comment on above: Performed By: #### C MP, LIPID #### [facility] [address] [place] [address] Dr. Kylee Bunch Monocytes/100 WBC (Bld) 4.5 % Normal 1.7-12.0 [facility] Comment on above: Performed By: #### C MP, LIPID #### [facility] [address] [place] [address] Dr. Kylee Bunch NEUT # 8.5 103/ul Critically high 1.4-6.5 [facility] Comment on above: Performed By: #### C MP, LIPID #### [facility] [address] [place] [address] Dr. Kylee Bunch Neutrophils/100 WBC (Bld) 83.3 % Critically high 43.0-75.0 [facility] Comment on above: Performed By: #### C MP, LIPID #### [facility] [address] [place] [address] Dr. Kylee Bunch Platelet mean volume (Bld) [Entitic vol] 12.6 fL Normal 9.5-13.5 [facility] Comment on above: Performed By: #### C MP, LIPID #### [facility] [address] [place] [address] Dr. Kylee Bunch PLT 335 103/ul Normal 150-450 [facility] Comment on above: Performed By: #### C MP, LIPID #### [facility] [address] [place], [place] [address] Dr. Kylee Bunch RBC 4.65 106/ul Critically low 4.70-6.10 [facility] Comment on above: Performed By: #### C MP, LIPID #### [facility] [address] [place], [place] [address] Dr. Kylee Bunch WBC 10.2 103/ul Normal 4.0-11.0 [facility] Comment on above: Performed By: #### C MP, LIPID #### [facility] [address] [place], [place] [address] Dr. Kylee Bunch CBC with Diffon 01-02-2022 Abs. Basophil 0.00 k/uL Normal 0.00-0.20 [facility] Comment on above: Performed By: #### C DP, MELVIN, BMPX, IPF #### [facility] [address] [place] [address] [employer]er: Francisco J Fonseca MD Abs.Imm.Granulocyte 0.00 k/uL Normal 0.00-0.30 [facility] Comment on above: Performed By: #### C DP, MELVIN, BMPX, IPF #### [facility] [address] [place] [address] [employer] Buyer: Francisco J Fonseca MD Abs.Neutrophil (Seg) 19.47 k/uL High 1.50-8.10 [facility] Comment on above: Performed By: #### C DP, MELVIN, BMPX, IPF #### [facility] [address] [place] [phone] [employer] Buyer: Francisco J Fonseca MD Basophils/100 WBC (Bld) 0 % Normal 0-2 [facility] Comment on above: Performed By: #### C DP, MELVIN, BMPX, IPF #### [facility] [address] [place] [address] Wheat Buyer: Francisco J Fonseca MD Eosinophils (Bld) [#/Vol] 0.00 10*3/uL Normal 0.00-0.44 [facility] Comment on above: Performed By: #### C DP, MELVIN, BMPX, IPF #### [facility] [address] [place] [address] [employer] Buyer: Francisco J Fonseca MD Eosinophils/100 WBC (Bld) 0 % Low 1-4 [facility] Comment on above: Performed By: #### C DP, MELVIN, BMPX, IPF #### [address] [address] [employer]er: Francisco J Fonseca MD Immature granulocytes/100 WBC (Bld) 0 % Normal 0 [facility] Comment on above: Performed By: #### C DP, MELVIN, BMPX, IPF #### [address] [address] [employer] Buyer: Francisco J Fonseca MD Lymphocytes (Bld) [#/Vol] 0.41 10*3/uL Low 1.10-3.70 [facility] Comment on above: Performed By: #### C DP, MELVIN, BMPX, IPF #### [facility] [address] [place] [address] [employer] Buyer: Francisco J Fonseca MD Lymphocytes/100 WBC (Bld) 2 % Low 24-43 [facility] Comment on above: Performed By: #### C DP, MELVIN, BMPX, IPF #### [facility] [address] [place] [address] [employer] Buyer: Francisco J Fonseca MD Monocytes (Bld) [#/Vol] 0.62 10*3/uL Normal 0.10-1.20 [facility] Comment on above: Performed By: #### C DP, MELVIN, BMPX, IPF #### [facility] [address] [place] [address] [employer]er: Francisco J Fonseca MD Monocytes/100 WBC (Bld) 3 % Normal 3-12 [facility] Comment on above: Performed By: #### C DP, MELVIN, BMPX, IPF #### [facility] [address] [place] [phone] [employer] Buyer: Francisco J Fonseca MD Morphology Walter (Bld) [Interp] ANISOCYTOSIS PRESENT Normal [facility] Comment on above: Performed By: #### C DP, MELVIN, BMPX, IPF #### [facility] [address] [place] [id number] Wheat Buyer: Francisco J Fonseca MD Neutrophil (Seg) 95 % High 36-[address] [facility] Comment on above: Performed By: #### C DP, MELVIN, BMPX, IPF #### [facility] [address] [place] [address] Wheat Buyer: Francisco J Fonseca MD Erythrocyte distribution width (RBC) [Ratio] 18.3 % High 11.8-14.4 [facility] Comment on above: Performed By: #### C DP, MELVIN, BMPX, IPF #### [facility] [address] [place] [address] Wheat Buyer: Francisco J Fonseca MD Hematocrit (Bld) [Volume fraction] 38.9 % Low 40.7-50.3 [facility] Comment on above: Performed By: #### C DP, MELVIN, BMPX, IPF #### [facility] [address] [place] [address] Wheat Buyer: Francisco J Fonseca MD Hemoglobin (Bld) [Mass/Vol] 12.9 g/dL Low 13.0-17.0 [facility] Comment on above: Performed By: #### C DP, MELVIN, BMPX, IPF #### [facility] [address] [place] [address] Wheat Buyer: Francicso J Fonseca MD MCH (RBC) [Entitic mass] 26.9 pg Normal 25.2-33.5 [facility] Comment on above: Performed By: #### C DP, MELVIN, BMPX, IPF #### [address] [address] Wheat Buyer: Francisco J Fonseca MD MCHC (RBC) [Mass/Vol] 33.2 g/dL Normal 28.4-34.8 [facility] Comment on above: Performed By: #### C DP, MELVIN, BMPX, IPF #### [address] [address] Wheat Buyer: Francisco J Fonseca MD MCV (RBC) [Entitic vol] 81.2 fL Low 82.6-102.9 [facility] Comment on above: Performed By: #### C DP, MELVIN, BMPX, IPF #### [address] [address] Wheat Buyer: Francisco J Fonseca MD NRBC Automated 0.0 per 100 WBC Normal 0.0 [facility] Comment on above: Performed By: #### C DP, MELVIN, BMPX, IPF #### [address] [address] Wheat Buyer: Francisco J Fonseca MD Platelet mean volume (Bld) [Entitic vol] 12.4 fL Normal 8.1-13.5 [facility] Comment on above: Performed By: #### C DP, MELVIN, BMPX, IPF #### [address] [address] Wheat Buyer: Francisco J Fonseca MD Platelets (Bld) [#/Vol] 324 10*3/uL Normal 138-453 [facility] Comment on above: Performed By: #### C DP, MELVIN, BMPX, IPF #### [address] [address] Wheat Buyer: Francisco J Fonseca MD RBC (Bld) [#/Vol] 4.79 10*6/uL Normal 4.21-5.77 [facility] Comment on above: Performed By: #### C DP, MELVIN, BMPX, IPF #### [facility] [address] [place] [address] Wheat Buyer: Francisco J Fonseca MD WBC (Bld) [#/Vol] 20.5 10*3/uL High 3.5-11.3 [facility] Comment on above: Performed By: #### C DP, MELVIN, BMPX, IPF #### [facility] [address] [place] [address] Wheat Buyer: Francisco J Fonseca MD CT ABD/PELV W [...] identified. Background diffuse body wall edema with [id number] volume of abdominal and pelvic ascites noted. [...] ROLA HOLCOMB Date: 2022-01-02 09:27 Normal [facility] Covid-19 PCR (CVDTB)on 12-11 SARS-CoV-2 (COVID-19) RNA ANASTASIA+probe Ql (Unsp spec) Not detected Normal NOT DETECTED [facility] Comment on above: Result Comment: When [...] for this test is supported by the Measurement Psychologist of Health and Human Service's declaration that [...] used). Performed By: #### C VDTBH #### [facility] [address] [place] [address] Dr. Kylee Bunch ER URINE PROFILEon Bilirubin Ql (U) Negative Normal NEGATIVE [facility] Comment on above: Performed By: #### C MP, LIPID #### [facility] [address] [place] [address] Dr. Kylee Bunch Clarity (U) CLEAR Normal CLEAR [facility] Comment on above: Performed By: #### C MP, LIPID #### [facility] [address] [place] [address] Dr. Kylee Bunch Color (U) LT. YELLOW Normal YELLOW [facility] Comment on above: Performed By: #### C MP, LIPID #### [facility] [address] [place] [address] DrOdalis AGUIRRE A micrscopic examina tion will be performed if indicated. Normal [facility] Comment on above: Performed By: #### C MP, LIPID #### [facility] [address] [place] [address] Dr. Kylee Bunch Hemoglobin Ql (U) TRACE-INTACT Abnormal NEGATIVE [facility] Comment on above: Performed By: #### C MP, LIPID #### [facility] [address] [place] [address] Dr. Kylee Bunch Ketones Ql (U) 15 mg/dl Abnormal NEGATIVE [facility] Comment on above: Performed By: #### C MP, LIPID #### [facility] [address] [place] [address] Dr. Kylee Bunch LEUKOCYTES Negative Normal NEGATIVE [facility] Comment on above: Performed By: #### C MP, LIPID #### [facility] [address] [place] [address] Dr. Kylee Bunch Nitrite Ql (U) Negative Normal NEGATIVE [facility] Comment on above: Performed By: #### C MP, LIPID #### [facility] [address] [place] [address] Dr. Kylee Bunch pH (U) 5.5 [pH] Normal 5-9 [facility] Comment on above: Performed By: #### C MP, LIPID #### [facility] [address] [place] [address] Dr. Kylee Bunch SPEC GRAVITY 1.015 Normal 1.005-<=1. 025 [facility] Comment on above: Performed By: #### C MP, LIPID #### [facility] [address] [place] [address] Dr. Kylee Bunch UA PROTEIN Negative Normal NEGATIVE/ TRACE [facility] Comment on above: Performed By: #### C MP, LIPID #### [facility] [address] [place] [address] Dr. Kylee Bunch UR MICRO IND INDICATED Normal [facility] Comment on above: Performed By: #### C MP, LIPID #### [facility] [address] [place] [address] Dr. Kylee Bunch Urobilinogen Qn (U) 0.2 {Gemini'U}/dL Normal 0.2 - 1. 0 [facility] Comment on above: Performed By: #### C MP, LIPID #### [facility] [address] [address] [address] Kylee Bunch LIPASEon 01-02-2022 Lipase [Catalytic activity/Vol] 9.0 U/L Critically low 73.0-393.0 [facility] Comment on above: Performed By: #### L IPA, MARGA, LIVER, BMP #### [facility] [address] [address] [address] Kylee Bunch LIVER PROFILEon 01-02-2022 Albumin [Mass/Vol] 3.3 g/dL Critically low 3.4-5.0 [facility] Comment on above: Performed By: #### L IPA, MARGA, LIVER, BMP #### [facility] [address] [address] [address] Kylee Bunch Albumin/Globulin [Mass ratio] 0.9 {ratio} Normal [facility] Comment on above: Performed By: #### L IPA, MARGA, LIVER, BMP #### [facility] [address] [address] [address] Kylee Bunch ALP [Catalytic activity/Vol] 116 U/L Normal 46-116 [facility] Comment on above: Performed By: #### L IPA, MARGA, LIVER, BMP #### [facility] [address] [address] [address] Kylee Bunch ALT [Catalytic activity/Vol] 21 U/L Normal 16-63 [facility] Comment on above: Performed By: #### L IPA, MARGA, LIVER, BMP #### [facility] [address] [address] [address] Kylee Bunch AST [Catalytic activity/Vol] 24 U/L Normal 15-37 [facility] Comment on above: Performed By: #### L IPA, MARGA, LIVER, BMP #### [facility] [address] [address] [address] Kylee Bunch BILI, CONJUGATED 0.1 mg/dL Normal 0.0-0.2 [facility] Comment on above: Performed By: #### L IPA, MARGA, LIVER, BMP #### [facility] [address] [address] [address] Kylee Bunch Bilirubin [Mass/Vol] 0.6 mg/dL Normal 0.2-1.0 [facility] Comment on above: Performed By: #### L IPA, MARGA, LIVER, BMP #### [facility] [address] [address] [address] Kylee Bunch Globulin (S) [Mass/Vol] 3.6 g/dL Normal [facility] Comment on above: Performed By: #### L IPA, MARGA, LIVER, BMP #### [facility] [address] [address] [address] Kylee Bunch Protein [Mass/Vol] 6.9 g/dL Normal 6.4-8.2 [facility] Comment on above: Performed By: #### L IPA, MARGA, LIVER, BMP #### [facility] [address] [address] [address] Kylee Bunch Laboratory - Chemistry and C hemistry - challengeon 01-02-2022 Glucose [Mass/Vol] 223 mg/dL [facility] [employer] Comment on above: The ADA and AACC rec ommend providing the estimated average glucose result to permit better patient understanding of their HBA1c result. Glucose [Mass/Vol] 227 mg/dL High 75 - 110 mg/dL [facility] [employer] Glucose [Mass/Vol] 290 mg/dL High 75 - 110 mg/dL [facility] [employer] Glucose [Mass/Vol] 300 mg/dL High 75 - 110 mg/dL [facility] [employer] Glucose [Mass/Vol] 323 mg/dL High 75 - 110 mg/dL [facility] [employer] Anion gap [Moles/Vol] 12 mmol/L 9 - 17 mmol/L [facility] [employer] Calcium [Mass/Vol] 8.6 mg/dL 8.6 - 10. 4 mg/dL [facility] [employer] Chloride [Moles/Vol] 96 mmol/L Low 98 - 10 7 mmol/L [facility] [employer] CO2 [Moles/Vol] 22 mmol/L 20 - 31 mmol/L [facility] Creatinine [Mass/Vol] 0.81 mg/dL 0.70 - 1.20 mg/dL [facility] GFR/1.73 sq M.predicted MDRD (S/P/Bld) [Vol rate/Area] [facility] Comment on above: Average GFR for 70 o r more years old: 75 mL/min/1.73sq m Chronic Kidney Disease: <60 mL/min/1.73sq m Kidney failure: <15 mL/min/1.73sq m eGFR calculated using average adult body mass. Additional eGFR calculator available at: http://www.[employer]/multiple_crcl_2011.htm Glucose [Mass/Vol] 452 mg/dL Critically high 70 - 9 9 mg/dL [facility] Potassium [Moles/Vol] 4.1 mmol/L 3.7 - 5.3 mmol/L [facility] Sodium [Moles/Vol] 130 mmol/L Low 135 - 144 mmol/L [facility] Urea nitrogen (BldV) [Mass/Vol] 19 mg/dL 8 - 23 mg/dL [facility] Albumin [Mass/Vol] 3.6 g/dL 3.5 - 5.2 g/dL [facility] Albumin/Globulin [Mass ratio] 1.3 {ratio} [facility] ALP (Bld) [Catalytic activity/Vol] 100 U/L 40 - 129 U/L [facility] ALT [Catalytic activity/Vol] 15 U/L 5 - 41 U/L [facility] AST [Catalytic activity/Vol] 18 U/L <40 [facility] Bilirubin [Mass/Vol] 0.45 mg/dL 0.3 - 1 .2 mg/dL [facility] Bilirubin.indirect [Mass/Vol] 0.17 mg/dL <0.31 [facility] Free PSA/Total PSA [Mass fraction] 6.4 g/dL 6.4 - 8.3 g/dL [facility] Glucose [Mass/Vol] 433 mg/dL Critically high 75 - 1 10 mg/dL [facility] Comment on above: Critical Noted Laboratory - Coagulationon 0 6-24-2022 INR Coag (Bld) [Relative time] 1.2 {INR} [facility] Comment on above: Therapeutic Range: Moderate Anticoagulant Intensity: INR = 2.0-3.0 High Anticoagulant Intensity: INR = 2.5-3.5 PT Coag (PPP) [Time] 12.5 s High [facility] Laboratory - Hematology and Cell countson 01-02-2022 HbA1c (Bld) [Mass fraction] 9.4 % High 4.0 - 6.0 % [facility] Basophils (Bld) [#/Vol] 0.00 10*3/uL [facility] Basophils/100 WBC (Bld) 0 % 0 - 2 % [facility] Eosinophils/100 WBC (Bld) 0 % Low 1 - 4 % [facility] Hematocrit (Bld) [Volume fraction] 38.9 % Low 40.7 - 50.3 % [facility] Hemoglobin (Bld) [Mass/Vol] 12.9 g/dL Low 13.0 - 17.0 g/dL [facility] Immature granulocytes/100 WBC (Bld) 0 % 0 [facility] Lymphocytes/100 WBC (Bld) 2 % Low 24 - 43 % [facility] MCH (RBC) [Entitic mass] 26.9 pg 25.2 - 33.5 pg [facility] MCHC (RBC) [Mass/Vol] 33.2 g/dL 28.4 - 34.8 g/dL [facility] MCV (RBC) [Entitic vol] 81.2 fL Low 82.6 - 102.9 fL [facility] Monocytes/100 WBC (Bld) 3 % 3 - 12 % [facility] Morphology Walter (Bld) [Interp] ANISOCYTOSIS PRESENT [facility] Platelet distribution width (Bld) [Ratio] 18.3 % High 11.8 - 14.4 % [facility] Platelet mean volume (Bld) [Entitic vol] 12.4 fL 8.1 - 13.5 fL [facility] Platelets (Bld) [#/Vol] 324 10*3/uL [facility] RBC (Bld) [#/Vol] 4.79 10*6/uL 4.21 - 5.77 m/uL [facility] Segmented neutrophils/100 WBC (Bld) 95 % High 36 - 65 % [facility] WBC (Bld) [#/Vol] 20.5 10*3/uL High [facility] Lactate, Sepsison 01-02-2022 Lactic Acid,Sep Wbld 1.7 mmol/L Normal 0.5-1.9 [facility] Comment on above: Performed By: #### C DP, MELVIN, BMPX, IPF #### [address] [address] Wheat Buyer: Francisco J Fonseca MD Liver Profileon 01-02-2022 Albumin [Mass/Vol] 3.6 g/dL Normal 3.5-5.2 [facility] Comment on above: Performed By: #### C DP #### [address] [address] Wheat Buyer: Francisco J Fonseca MD Albumin/Glob Ratio 1.3 Normal 1.0-2.5 [facility] Comment on above: Performed By: #### C DP #### [address] [address] Wheat Buyer: Francisco J Fonseca MD Alkaline Phos 100 U/L Normal 40-129 [facility] Comment on above: Performed By: #### C DP #### [address] [address] Wheat Buyer: Francisco J Fonseca MD ALT [Catalytic activity/Vol] 15 U/L Normal 5-41 [facility] Comment on above: Performed By: #### C DP #### [address] [address] Wheat Buyer: Francisco J Fonseca MD AST [Catalytic activity/Vol] 18 U/L Normal <40 [facility] Comment on above: Performed By: #### C DP #### [employer] [facility] [place] [address] Wheat Buyer: Francisco J Fonseca MD Bilirubin [Mass/Vol] 0.45 mg/dL Normal 0.3-1.2 [facility] Comment on above: Performed By: #### C DP #### [facility] [address] [place] [address] Wheat Buyer: Francisco J Fonseca MD Bilirubin, Indirect 0.28 mg/dL Normal 0.00-1.00 [facility] Comment on above: Performed By: #### C DP #### [facility] [address] [place] [address] Wheat Buyer: Francisco J Fonseca MD Bilirubin.indirect [Mass/Vol] 0.17 mg/dL Normal <0.31 [facility] Comment on above: Performed By: #### C DP #### [facility] [address] [place] [address] Wheat Buyer: Francisco J Fonseca MD Protein [Mass/Vol] 6.4 g/dL Normal 6.4-8.3 [facility] Comment on above: Performed By: #### C DP #### [address] [address] Wheat Buyer: Francisco J Fonseca MD No Panel Informationon 01-02 Interpretation and review of laboratory results Abnormal [facility] Interpretation and review of laboratory results Abnormal [facility] Enteric tube needs t o be advanced 10 cm. MHPN RIS CONSOLIDATED EXAMINATION: ONE SUPINE XRAY VIEW(S) [...] to be advanced at least 10 cm. PN RIS Eulogio Rodriges MD - 01/02/2022 EXAMINATION: ONE SUPINE XRAY [...] tube needs to be advanced 10 cm. [facility] Work Phone: Interpretation and review of laboratory results Abnormal [facility] Interpretation and review of laboratory results Abnormal [facility] Radiology Study observation (narrative) [facility] Work Phone: Absolute Eos # 0.00 [facility] Absolute Immature Granulocyte 0.00 [facility] Absolute Lymph # 0.41 Low [facility] Absolute Merrick # 0.62 [facility] Interpretation and review of laboratory results Abnormal [facility] NRBC Automated 0.0 0.0 per 100 WBC [facility] Segs Absolute 19.[address] [facility] Interpretation and review of laboratory results Abnormal [facility] Interpretation and review of laboratory results Abnormal [facility] Lactic Acid, Sepsis, Whole Blood 1.7 mmol/L 0.5 - 1.9 mmol/L [facility] GFR >60 >60 mL/min [facility] GFR Non- >60 >60 mL/min [facility] Interpretation and review of laboratory results Abnormal [facility] Bilirubin, Indirect 0.28 mg/dL 0.00 - 1.00 mg/dL [facility] Interpretation and review of laboratory results Abnormal [facility] No Panel InformationOrdered By: Eulogio Winslow on 01-02-2022 [facility] Work Phone: POINT OF CARE GLUCOSEon 12-11 Glucose [Mass/Vol] 408 mg/dL Critically high 74-106 [facility] Comment on above: Performed By: #### P OCGLUC #### [facility] [address] [address] [address] Kylee Bunch PROF CHEM 8 (BAS METB)on Anion gap [Moles/Vol] 16.4 mmol/L Normal [facility] Comment on above: Performed By: #### L IPA, MARGA, LIVER, BMP #### [facility] [address] [place] [address] Dr. Kylee Bunch Calcium [Mass/Vol] 8.8 mg/dL Normal 8.5-10.1 [facility] Comment on above: Performed By: #### L IPA, MARGA, LIVER, BMP #### [facility] [address] [address] [address] Kylee Bunch Chloride [Moles/Vol] 96 mmol/L Critically low 98-107 [facility] Comment on above: Performed By: #### L IPA, MARGA, LIVER, BMP #### [facility] [address] [address] [address] Kylee Bunch CO2 [Moles/Vol] 25.1 mmol/L Normal 21.0-32.0 [facility] Comment on above: Performed By: #### L IPA, MARGA, LIVER, BMP #### [facility] [address] [place] [address] Dr. Kylee Bunch Creatinine [Mass/Vol] 1.22 mg/dL Normal 0.70-1.30 [facility] Comment on above: Performed By: #### L IPA, MARGA, LIVER, BMP #### [facility] [address] [place] [address] Dr. Kylee Bunch EGFR-AF AUSTRIAN >60 Normal >=60 [facility] Comment on above: Performed By: #### L IPA, MARGA, LIVER, BMP #### [facility] [address] [address] [address] Kylee Bunch EGFR-NON AF AUSTRIAN 57 mL/min/1.73m2 Critically low >=60 [facility] Comment on above: Performed By: #### L IPA, MARGA, LIVER, BMP #### [facility] [address] [address] [address] Kylee Bunch Glucose [Mass/Vol] 579 mg/dL Critically high 74-106 [facility] Comment on above: Result Comment: repe ated Performed By: #### L IPA, MARGA, LIVER, BMP #### [facility] [address] [place] [address] Dr. Kylee Bunch Potassium [Moles/Vol] 4.5 mmol/L Normal 3.5-5.1 [facility] Comment on above: Performed By: #### L IPA, MARGA, LIVER, BMP #### [facility] [address] [address] [address] Kylee Bunch Sodium [Moles/Vol] 133 mmol/L Critically low 136-145 [facility] Comment on above: Performed By: #### L IPA, MARGA, LIVER, BMP #### [facility] [address] [place] [address] Dr. Kylee Bunch Urea nitrogen [Mass/Vol] 19.0 mg/dL Critically high 7.0-18.0 [facility] Comment on above: Performed By: #### L IPA, MARGA, LIVER, BMP #### [facility] [address] [address] [address] Kylee Bunch Urea nitrogen/Creatinine [Mass ratio] 15.6 mg/mg Normal [facility] Comment on above: Performed By: #### L IPA, MARGA, LIVER, BMP #### [facility] [address] [address] [address] Kylee Bunch PTon 01-02-2022 INR Coag (PPP) [Relative time] 1.2 {INR} Normal [facility] Comment on above: Result Comment: Therapeutic Range: Moderate Anticoagulant Intensity: INR = 2.0-3.0 High Anticoagulant Intensity: INR = 2.5-3.5 Performed By: #### C DP, MELVIN, BMPX, IPF #### [facility] [address] [place], [place] [id number] Wheat Buyer: Francisco J Fonseca MD PT Coag (PPP) [Time] 12.5 s High 9.1-12.3 [facility] Comment on above: Performed By: #### C DP, MELVIN, BMPX, IPF #### [facility] [place], [place] [id number] Wheat Buyer: Francisco J Fonseca MD URINE MICROSCOPIC ONLYon BACTERIA NONE SEEN Normal NONE SEEN [facility] Comment on above: Performed By: #### C MP, LIPID #### [facility] [address] [place] [address] Dr. Kylee Bunch Bacteria identified Cx Nom (U) NOT INDICATED Normal [facility] Comment on above: Performed By: #### C MP, LIPID #### [facility] [address] [place] [address] Dr. Kylee Bunch CAST NONE SEEN Normal NONE SEEN [facility] Comment on above: Performed By: #### C MP, LIPID #### [facility] [address] [place] [address] Dr. Kylee Bunch Crystals LM Nom (Urine sed) NONE SEEN Normal NONE SEEN [facility] Comment on above: Performed By: #### C MP, LIPID #### [facility] [address] [place] [address] Dr. Kylee Bunch Epithelial cells LM Ql (Urine sed) RARE Normal NONE SEEN /RARE [facility] Comment on above: Performed By: #### C MP, LIPID #### [facility] [address] [place] [address] Dr. Kylee Bunch MUCOUS NONE SEEN Normal NONE SEEN [facility] Comment on above: Performed By: #### C MP, LIPID #### [facility] [address] [place] [address] Dr. Kylee Bunch RBC 0-2 Normal 0-2 [facility] Comment on above: Performed By: #### C MP, LIPID #### [facility] [address] [address] [address] Kylee Bunch WBC NONE SEEN Normal NONE SEEN [facility] Comment on above: Performed By: #### C MP, LIPID #### [facility] [address] [address] [address] Kylee Bunch Vital Signs Date Time Vital Sign Value Performing Clinician Facility 03-27-2025 10:08-0400 Body height 177.8 cm Marie HurleypauReach.ly DO Work Phone: [facility] 03-27-2025 10:08-0400 Body mass index (BMI) [Ratio] 19.5 kg/m2 Marie JamaReach.ly DO Work Phone: [facility] 03-27-2025 10:08-0400 Body weight 61.68 kg Marie JamaReach.ly DO Work Phone: [facility] 03-27-2025 10:08-0400 Diastolic blood pressure 72 mm[Hg] Marie [employer] DO Work Phone: [facility] 03-27-2025 10:08-0400 Heart rate 80 /min Marie Jamak DO Work Phone: [facility] 03-27-2025 10:08-0400 Respiratory rate 18 /min Marie Jamak DO Work Phone: [facility] 03-27-2025 10:08-0400 SaO2% (BldA) [Mass fraction] 98 % Marie Jamak DO Work Phone: [facility] 03-27-2025 10:08-0400 Systolic blood pressure 138 mm[Hg] Marie Xavipauk DO Work Phone: [facility] 01-02-2025 11:38-0400 Body height 177.8 cm Marie Xav[employer] DO Work Phone: [facility] 01-02-2025 11:38-0400 Body mass index (BMI) [Ratio] 19.8 kg/m2 Marie Castro DO Work Phone: [facility] 01-02-2025 11:38-0400 Body weight 62.6 kg Marie Castro DO Work Phone: [facility] [facility] 11:38-0400 Diastolic blood pressure 66 mm[Hg] Marie Castro DO Work Phone: [facility] 01-02-2025 11:38-0400 Heart rate 64 /min Marie Castro DO Work Phone: [facility] 01-02-2025 11:38-0400 SaO2% (BldA) [Mass fraction] 96 % Marie Castro DO Work Phone: [facility] 01-02-2025 11:38-0400 Systolic blood pressure 122 mm[Hg] Marie Castro DO Work Phone: [facility] 10-26-2024 12:09-0400 Body height 177.8 cm Ayana Zavala GRAIN FARMWORKER.INTER COM INSTALLER Work Phone: [facility] 10-26-2024 12:09-0400 Body mass index (BMI) [Ratio] 19.3 kg/m2 Ayana Zavala GRAIN FARMWORKER.INTER COM INSTALLER Work Phone: [facility] 10-26-2024 12:09-0400 Body weight 61 kg Ayana Zavala GRAIN FARMWORKER.INTER COM INSTALLER Work Phone: [facility] 10-26-2024 12:09-0400 Diastolic blood pressure 80 mm[Hg] Ayana Zavala GRAIN FARMWORKER.INTER COM INSTALLER Work Phone: [facility] 10-26-2024 12:09-0400 Heart rate 60 /min yAana Zavala GRAIN FARMWORKER.INTER COM INSTALLER Work Phone: [facility] 10-26-2024 12:09-0400 SaO2% (BldA) [Mass fraction] 99 % Ayana Zavala GRAIN FARMWORKER.INTER COM INSTALLER Work Phone: [facility] 10-26-2024 12:09-0400 Systolic blood pressure 163 mm[Hg] Ayana Zavala GRAIN FARMWORKER.INTER COM INSTALLER Work Phone: [facility] 09-25-2024 14:27-0400 Body mass index (BMI) [Ratio] 19.96 kg/m2 Ayana Zavala GRAIN FARMWORKER.INTER COM INSTALLER Work Phone: [facility] 09-25-2024 14:27-0400 Body weight 63.1 kg Ayana Zavala GRAIN FARMWORKER.INTER COM INSTALLER Work Phone: [facility] 09-25-2024 14:27-0400 Diastolic blood pressure 93 mm[Hg] Ayana Zavala GRAIN FARMWORKER.INTER COM INSTALLER Work Phone: [facility] 09-25-2024 14:27-0400 Heart rate 60 /min Ayana Zavala GRAIN FARMWORKER.INTER COM INSTALLER Work Phone: [facility] 09-25-2024 14:27-0400 SaO2% (BldA) [Mass fraction] 100 % Ayana Zavala GRAIN FARMWORKER.INTER COM INSTALLER Work Phone: [facility] 09-25-2024 14:27-0400 Systolic blood pressure 162 mm[Hg] Ayana Zavala GRAIN FARMWORKER.INTER COM INSTALLER Work Phone: [facility] 08-31-2024 10:15-0500 Body height 177.8 cm Marie Castro DO Work Phone: [facility] 08-31-2024 10:15-0500 Body mass index (BMI) [Ratio] 20 kg/m2 Marie Castro DO Work Phone: [facility] 08-31-2024 10:15-0500 Body weight 63.5 kg Marie Yunk DO Work Phone: [facility] 08-31-2024 10:15-0500 Diastolic blood pressure 78 mm[Hg] Marie Yunk DO Work Phone: [facility] 08-31-2024 10:15-0500 Heart rate 60 /min Marie Yunk DO Work Phone: [facility] 08-31-2024 10:15-0500 Respiratory rate 18 /min Marie Castro DO Work Phone: [facility] 08-31-2024 10:15-0500 SaO2% (BldA) [Mass fraction] 97 % Marie Castro DO Work Phone: [facility] 08-31-2024 10:15-0500 Systolic blood pressure 134 mm[Hg] Marie Castro DO Work Phone: [facility] 08-30-2024 13:54-0500 Diastolic blood pressure 70 mm[Hg] Marie Castro DO Work Phone: [facility] 08-30-2024 13:54-0500 Systolic blood pressure 120 mm[Hg] Marie Castro DO Work Phone: [facility] 08-30-2024 13:50-0500 Heart rate 61 /min Marie Castro DO Work Phone: [facility] 08-30-2024 13:50-0500 SaO2% (BldA) [Mass fraction] 98 % Marie Castro DO Work Phone: [facility] 07-20-2024 10:13-0500 Body mass index (BMI) [Ratio] 21.24 kg/m2 Yomi Chong CAMPAIGN CONSULTANT Work Phone: [facility] 07-20-2024 10:13-0500 Body weight 67.13 kg Yomi Chong CAMPAIGN CONSULTANT Work Phone: [facility] 07-20-2024 10:13-0500 Diastolic blood pressure 60 mm[Hg] Yomi Chong CAMPAIGN CONSULTANT Work Phone: [facility] 07-20-2024 10:13-0500 Heart rate 74 /min Yomi Chong CAMPAIGN CONSULTANT Work Phone: [facility] 07-20-2024 10:13-0500 SaO2% (BldA) [Mass fraction] 92 % Yomi Chong CAMPAIGN CONSULTANT Work Phone: [facility] 07-20-2024 10:13-0500 Systolic blood pressure 122 mm[Hg] Yomi Chong CAMPAIGN CONSULTANT Work Phone: [facility] 07-17-2024 13:57-0500 Diastolic blood pressure 70 mm[Hg] Marie Vaschak DO Work Phone: [facility] 07-17-2024 13:57-0500 Systolic blood pressure 127 mm[Hg] Marie Vaschak DO Work Phone: [facility] 07-17-2024 13:17-0500 Body height 177.8 cm Marie Vaschak DO Work Phone: [facility] 07-17-2024 12:03-0500 Body temperature 97.1 [degF] Marie Vaschak DO Work Phone: [facility] 07-17-2024 12:03-0500 Heart rate 60 /min Marie Vaschak DO Work Phone: [facility] 07-17-2024 12:03-0500 Respiratory rate 12 /min Marie Vaschak DO Work Phone: [facility] 07-17-2024 12:03-0500 SaO2% (BldA) [Mass fraction] 95 % Marie Vaschak DO Work Phone: [facility] 07-17-2024 03:36-0500 Body height 177.8 cm Marie Vaschak DO Work Phone: [facility] 07-17-2024 03:36-0500 Body temperature 97.6 [degF] Marie Vaschak DO Work Phone: [facility] 07-17-2024 03:36-0500 Body weight 63.5 kg Marie Vaschak DO Work Phone: [facility] 07-17-2024 03:36-0500 Diastolic blood pressure 92 mm[Hg] Marie Vaschak DO Work Phone: [facility] 07-17-2024 03:36-0500 Heart rate 61 /min Marie Yunk DO Work Phone: [facility] 07-17-2024 03:36-0500 Respiratory rate 15 /min Marie Yunk DO Work Phone: [facility] 07-17-2024 03:36-0500 SaO2% (BldA) [Mass fraction] 91 % Marie Yunk DO Work Phone: [facility] 07-17-2024 03:36-0500 Systolic blood pressure 161 mm[Hg] Marie Yunk DO Work Phone: [facility] 07-06-2024 11:15-0500 Body mass index (BMI) [Ratio] 21.61 kg/m2 Ayana Zavala GRAIN FARMWORKER.INTER COM INSTALLER Work Phone: [facility] 07-06-2024 11:15-0500 Body weight 68.3 kg Ayana Zavala GRAIN FARMWORKER.INTER COM INSTALLER Work Phone: [facility] 07-06-2024 11:15-0500 Diastolic blood pressure 69 mm[Hg] Ayana Souleymane GRAIN FARMWORKER.INTER COM INSTALLER Work Phone: [facility] 07-06-2024 11:15-0500 Heart rate 60 /min Ayana Zavala GRAIN FARMWORKER.INTER COM INSTALLER Work Phone: [facility] 07-06-2024 11:15-0500 Systolic blood pressure 114 mm[Hg] Ayana Zavala GRAIN FARMWORKER.INTER COM INSTALLER Work Phone: [facility] 07-03-2024 09:23-0500 Body height 177.8 cm Beto Oh MD Work Phone: [facility] 07-03-2024 09:23-0500 Body mass index (BMI) [Ratio] 20.37 kg/m2 Beto Oh MD Work Phone: [facility] 07-03-2024 09:23-0500 Body weight 64.41 kg Beto Oh MD Work Phone: [facility] 06-21-2024 12:00-0500 Body temperature 97.6 [degF] Marie Yunk DO Work Phone: [facility] 06-21-2024 12:00-0500 Diastolic blood pressure 73 mm[Hg] Marie Yunk DO Work Phone: [facility] 06-21-2024 12:00-0500 Heart rate 68 /min Marie Yunk DO Work Phone: [facility] 06-21-2024 12:00-0500 Respiratory rate 16 /min Marie Castro DO Work Phone: [facility] 06-21-2024 12:00-0500 SaO2% (BldA) [Mass fraction] 98 % Marie Yunk DO Work Phone: [facility] 06-21-2024 12:00-0500 Systolic blood pressure 136 mm[Hg] Marie Yunk DO Work Phone: [facility] 06-21-2024 06:00-0500 Body weight 63.6 kg Marie Castro DO Work Phone: [facility] 06-20-2024 12:12-0500 Body height 180.34 cm Marie Castro DO Work Phone: [facility] 06-19-2024 14:59-0500 Body height 177.8 cm Marie Castro DO Work Phone: [facility] 06-19-2024 14:59-0500 Body mass index (BMI) [Ratio] 20.37 kg/m2 Marie Yunk DO Work Phone: [facility] 06-19-2024 14:59-0500 Body weight 64.41 kg Marie Yunk DO Work Phone: [facility] 06-19-2024 14:59-0500 Diastolic blood pressure 62 mm[Hg] Marie Yunk DO Work Phone: [facility] 06-19-2024 14:59-0500 Heart rate 70 /min Marie Yunk DO Work Phone: [facility] 06-19-2024 14:59-0500 Systolic blood pressure 118 mm[Hg] Marie Yunk DO Work Phone: [facility] 06-18-2024 15:42-0500 Body temperature 97.6 [degF] Marie Yunk DO Work Phone: [facility] 06-18-2024 15:42-0500 Diastolic blood pressure 94 mm[Hg] Marie Yunk DO Work Phone: [facility] 06-18-2024 15:42-0500 Heart rate 60 /min Marie Yunk DO Work Phone: [facility] 06-18-2024 15:42-0500 Respiratory rate 19 /min Marie Yunk DO Work Phone: [facility] 06-18-2024 15:42-0500 SaO2% (BldA) [Mass fraction] 96 % Marie Yunk DO Work Phone: [facility] 06-18-2024 15:42-0500 Systolic blood pressure 189 mm[Hg] Marie Yunk DO Work Phone: [facility] 06-18-2024 05:28-0500 Body weight 65.5 kg Marie Yunk DO Work Phone: [facility] 06-16-2024 19:55-0500 Body height 177.8 cm Marie Xavichak DO Work Phone: [facility] 05-30-2024 14:20-0500 Body height 177.8 cm Marie Yunk DO Work Phone: [facility] 05-30-2024 14:20-0500 Body mass index (BMI) [Ratio] 21.09 kg/m2 Marie aXvichak DO Work Phone: [facility] 05-30-2024 14:20-0500 Body weight 66.68 kg Marie Jamak DO Work Phone: [facility] 05-30-2024 14:20-0500 Diastolic blood pressure 80 mm[Hg] Marie Vaschak DO Work Phone: [facility] 05-30-2024 14:20-0500 Heart rate 61 /min Marie Vaschak DO Work Phone: [facility] 05-30-2024 14:20-0500 SaO2% (BldA) [Mass fraction] 97 % Marie Xavichak DO Work Phone: [facility] 05-30-2024 14:20-0500 Systolic blood pressure 130 mm[Hg] Marie Vaschak DO Work Phone: [facility] 05-25-2024 08:00-0500 Body temperature 98 [degF] Marie Hurleychak DO Work Phone: [facility] 05-25-2024 08:00-0500 Diastolic blood pressure 96 mm[Hg] Marie Vaschak DO Work Phone: [facility] 05-25-2024 08:00-0500 Heart rate 60 /min Marie Vaschak DO Work Phone: [facility] 05-25-2024 08:00-0500 Respiratory rate 16 /min Marie Yunk DO Work Phone: [facility] 05-25-2024 08:00-0500 SaO2% (BldA) [Mass fraction] 97 % Marie Xavichak DO Work Phone: [facility] 05-25-2024 08:00-0500 Systolic blood pressure 151 mm[Hg] Marie Vaschak DO Work Phone: [facility] 05-25-2024 06:00-0500 Body weight 66 kg Marie Jamak DO Work Phone: [facility] 05-24-2024 20:12-0500 Body height 177.8 cm Marie Vaspauk DO Work Phone: [facility] 05-24-2024 19:25-0500 Inhaled oxygen flow rate 10 L/min Marie Vaschak DO Work Phone: [facility] 05-10-2024 11:10-0400 Diastolic blood pressure 68 mm[Hg] DO Marie Vaschak Work Phone: [facility] 05-10-2024 11:10-0400 Heart rate 61 /min DO Marie Vaschak Work Phone: [facility] 05-10-2024 11:10-0400 Systolic blood pressure 132 mm[Hg] DO Marie Vaschak Work Phone: [facility] 05-10-2024 11:00-0400 Body height 177.8 cm DO Marie Vaschak Work Phone: [facility] 05-10-2024 11:00-0400 Body mass index (BMI) [Ratio] 21.9 kg/m2 DO Marie Vaschak Work Phone: [facility] 05-10-2024 11:00-0400 Body weight 69.39 kg DO Marie Vaschak Work Phone: [facility] 05-10-2024 11:00-0400 Respiratory rate 18 /min DO Marie Vaschak Work Phone: [facility] 05-10-2024 11:00-0400 SaO2% (BldA) [Mass fraction] 98 % DO Marie Vaschak Work Phone: [facility] 04-26-2024 14:14-0400 Diastolic blood pressure 60 mm[Hg] DO Marie Vaschak Work Phone: [facility] 04-26-2024 14:14-0400 Systolic blood pressure 142 mm[Hg] DO Marie Vaschak Work Phone: [facility] 04-26-2024 13:23-0400 Body height 177.8 cm DO Marie Jamak Work Phone: [facility] 04-26-2024 13:23-0400 Body mass index (BMI) [Ratio] 22.2 kg/m2 DO Marie Jamak Work Phone: [facility] 04-26-2024 13:23-0400 Body weight 70.3 kg DO Marie Ileana Work Phone: [facility] 04-26-2024 13:23-0400 Heart rate 56 /min DO Marie Jamak Work Phone: [facility] 04-26-2024 13:23-0400 Respiratory rate 18 /min DO Marie Jamak Work Phone: [facility] 04-26-2024 13:23-0400 SaO2% (BldA) [Mass fraction] 94 % DO Marie Ileana Work Phone: [facility] 04-26-2024 10:24-0400 Diastolic blood pressure 70 mm[Hg] DO Marie Ileana Work Phone: [facility] 04-26-2024 10:24-0400 Heart rate 55 /min DO Marie Ileana Work Phone: [facility] 04-26-2024 10:24-0400 Respiratory rate 12 /min DO Marie Ileana Work Phone: [facility] 04-26-2024 10:24-0400 SaO2% (BldA) [Mass fraction] 97 % DO Marie Jamak Work Phone: [facility] 04-26-2024 10:24-0400 Systolic blood pressure 149 mm[Hg] DO Marie Vaschak Work Phone: [facility] 04-24-2024 15:59-0400 Diastolic blood pressure 50 mm[Hg] Stalin Alamo NP Work Phone: [facility] 04-24-2024 15:59-0400 Heart rate 50 /min Stalin Alamo CAMPAIGN CONSULTANT Work Phone: [facility] 04-24-2024 15:59-0400 SaO2% (BldA) [Mass fraction] 90 % Stalin Omid CAMPAIGN CONSULTANT Work Phone: [facility] 04-24-2024 15:59-0400 Systolic blood pressure 110 mm[Hg] Stalin Alamo CAMPAIGN CONSULTANT Work Phone: [facility] 04-17-2024 10:52-0400 Diastolic blood pressure 50 mm[Hg] Marie Vaschak DO Work Phone: [facility] 04-17-2024 10:52-0400 Heart rate 52 /min Marie Vaschak DO Work Phone: [facility] 04-17-2024 10:52-0400 SaO2% (BldA) [Mass fraction] 94 % Marie Vaschak DO Work Phone: [facility] 04-17-2024 10:52-0400 Systolic blood pressure 90 mm[Hg] Marie Vaschak DO Work Phone: [facility] 04-17-2024 10:50-0400 Body height 177.8 cm Marie Vaschak DO Work Phone: [facility] 04-17-2024 10:50-0400 Body mass index (BMI) [Ratio] 20.81 kg/m2 Marie Vaschak DO Work Phone: [facility] 04-17-2024 10:50-0400 Body weight 65.77 kg Marie Vaschak DO Work Phone: [facility] 03-27-2024 11:09-0400 Body height 177.8 cm DO Marie Vaschak Work Phone: [facility] 03-27-2024 11:09-0400 Body mass index (BMI) [Ratio] 20.9 kg/m2 DO Marie Vaschak Work Phone: [facility] 03-27-2024 11:09-0400 Body weight 66.22 kg DO Marie Vaschak Work Phone: [facility] 03-27-2024 11:09-0400 Diastolic blood pressure 56 mm[Hg] DO Marie Vaschak Work Phone: [facility] 03-27-2024 11:09-0400 Heart rate 61 /min DO Marie Vaschak Work Phone: [facility] 03-27-2024 11:09-0400 Respiratory rate 18 /min DO Marie Vaschak Work Phone: [facility] 03-27-2024 11:09-0400 SaO2% (BldA) [Mass fraction] 97 % DO Marie Vaschak Work Phone: [facility] 03-27-2024 11:09-0400 Systolic blood pressure 102 mm[Hg] DO Marie Vaschak Work Phone: [facility] 03-15-2024 11:08-0400 Diastolic blood pressure 58 mm[Hg] DO Marie Vaschak Work Phone: [facility] 03-15-2024 11:08-0400 Heart rate 59 /min DO Marie Vaschak Work Phone: [facility] 03-15-2024 11:08-0400 Systolic blood pressure 110 mm[Hg] DO Marie Vaschak Work Phone: [facility] 03-15-2024 11:07-0400 Respiratory rate 18 /min DO Marie Vaschak Work Phone: [facility] 03-15-2024 11:06-0400 Body height 177.8 cm DO Marie Vaschak Work Phone: [facility] 03-15-2024 11:06-0400 Body mass index (BMI) [Ratio] 21.5 kg/m2 DO Marie Vaschak Work Phone: [facility] 03-15-2024 11:06-0400 Body weight 68.03 kg DO Marie Vaschak Work Phone: [facility] 03-15-2024 11:06-0400 SaO2% (BldA) [Mass fraction] 95 % DO Marie Vaschak Work Phone: [facility] 03-10-2024 11:01-0400 Diastolic blood pressure 48 mm[Hg] DO Marie Vaschak Work Phone: [facility] 03-10-2024 11:01-0400 Heart rate 45 /min DO Marie Vaschak Work Phone: [facility] 03-10-2024 11:01-0400 Systolic blood pressure 108 mm[Hg] DO Marie Vaschak Work Phone: [facility] 03-08-2024 11:24-0400 Diastolic blood pressure 55 mm[Hg] DO Marie Vaschak Work Phone: [facility] 03-08-2024 11:24-0400 Heart rate 54 /min DO Marie Vaschak Work Phone: [facility] 03-08-2024 11:24-0400 Systolic blood pressure 107 mm[Hg] DO Marie Vaschak Work Phone: [facility] 03-01-2024 12:36-0400 Respiratory rate 18 /min DO Marie Vaschak Work Phone: [facility] 03-01-2024 12:36-0400 SaO2% (BldA) [Mass fraction] 97 % DO Marie Vaschak Work Phone: [facility] 02-29-2024 13:29-0400 Diastolic blood pressure 50 mm[Hg] DO Marie Vaschak Work Phone: [facility] 02-29-2024 13:29-0400 Heart rate 52 /min DO Marie Vaschak Work Phone: [facility] 02-29-2024 13:29-0400 Systolic blood pressure 96 mm[Hg] DO Marie Vaschak Work Phone: [facility] 02-29-2024 13:25-0400 Respiratory rate 18 /min DO Marie Vaschak Work Phone: [facility] 02-29-2024 13:24-0400 Body height 177.8 cm DO Marie Vaschak Work Phone: [facility] 02-29-2024 13:24-0400 Body mass index (BMI) [Ratio] 21.4 kg/m2 DO Marie Vaschak Work Phone: [facility] 02-29-2024 13:24-0400 Body weight 67.58 kg DO Marie Vaschak Work Phone: [facility] 02-29-2024 13:24-0400 SaO2% (BldA) [Mass fraction] 99 % DO Marie Vaschak Work Phone: [facility] 02-15-2024 10:12-0400 Diastolic blood pressure 40 mm[Hg] DO Marie Vaschak Work Phone: [facility] 02-15-2024 10:12-0400 Heart rate 48 /min DO Marie Vaschak Work Phone: [facility] 02-15-2024 10:12-0400 Systolic blood pressure 88 mm[Hg] DO Marie Vaschak Work Phone: [facility] 02-15-2024 10:11-0400 Body height 177.8 cm DO Marie Vaschak Work Phone: [facility] 02-15-2024 10:11-0400 Body mass index (BMI) [Ratio] 21.5 kg/m2 DO Marie Vaschak Work Phone: [facility] 02-15-2024 10:11-0400 Body weight 68.03 kg DO Marie Vaschak Work Phone: [facility] 02-15-2024 10:11-0400 Respiratory rate 18 /min DO Marie Vaschak Work Phone: [facility] 02-15-2024 10:11-0400 SaO2% (BldA) [Mass fraction] 97 % DO Marie Vaschak Work Phone: [facility] 02-08-2024 11:29-0400 Diastolic blood pressure 54 mm[Hg] DO Marie Vaschak Work Phone: [facility] 02-08-2024 11:29-0400 Heart rate 45 /min DO Marie Vaschak Work Phone: [facility] 02-08-2024 11:29-0400 Respiratory rate 16 /min DO Marie Vaschak Work Phone: [facility] 02-08-2024 11:29-0400 SaO2% (BldA) [Mass fraction] 98 % DO Marie Vaschak Work Phone: [facility] 02-08-2024 11:29-0400 Systolic blood pressure 124 mm[Hg] DO Marie Vaschak Work Phone: [facility] 02-08-2024 07:59-0400 Body temperature 97.8 [degF] DO Marie Vaschak Work Phone: [facility] 02-08-2024 05:37-0400 Body weight 63.9 kg DO Marie Vaschak Work Phone: [facility] 02-06-2024 15:56-0400 Body height 177.8 cm DO Marie Vaschak Work Phone: [facility] 02-06-2024 00:57-0400 Diastolic blood pressure 64 mm[Hg] DO Marie Vaschak Work Phone: [facility] 02-06-2024 00:57-0400 Heart rate 58 /min DO Marie Vaschak Work Phone: [facility] 02-06-2024 00:57-0400 Respiratory rate 18 /min DO Marie Vaschak Work Phone: [facility] 02-06-2024 00:57-0400 SaO2% (BldA) [Mass fraction] 100 % DO Marie Vaschak Work Phone: [facility] 02-06-2024 00:57-0400 Systolic blood pressure 130 mm[Hg] DO Marie Vaschak Work Phone: [facility] 02-05-2024 19:13-0400 Body height 179.07 cm DO Marie Vaschak Work Phone: [facility] 02-05-2024 19:13-0400 Body temperature 97.6 [degF] DO Marie Vaschak Work Phone: [facility] 02-05-2024 19:13-0400 Body weight 65.5 kg DO Marie Vaschak Work Phone: [facility] 11-11-2023 13:50-0400 Diastolic blood pressure 72 mm[Hg] DO Marie Vaschak Work Phone: [facility] 11-11-2023 13:50-0400 Heart rate 56 /min DO Marie Vaschak Work Phone: [facility] 11-11-2023 13:50-0400 Respiratory rate 16 /min DO Marie Vaschak Work Phone: [facility] 11-11-2023 13:50-0400 SaO2% (BldA) [Mass fraction] 97 % DO Marie Vaschak Work Phone: [facility] 11-11-2023 13:50-0400 Systolic blood pressure 125 mm[Hg] DO Marie Vaschak Work Phone: [facility] 11-11-2023 12:20-0400 Body height 177.8 cm DO Marie Vaschak Work Phone: [facility] 11-11-2023 12:20-0400 Body weight 65.77 kg DO Marie Vaschak Work Phone: [facility] 10-28-2023 14:51-0400 Body height 177.8 cm DO Marie Vaschak Work Phone: [facility] 10-28-2023 14:51-0400 Body mass index (BMI) [Ratio] 20.9 kg/m2 DO Marie Vaschak Work Phone: [facility] 10-28-2023 14:51-0400 Body weight 66.22 kg DO Marie Vaschak Work Phone: [facility] 10-28-2023 14:51-0400 Diastolic blood pressure 70 mm[Hg] DO Marie Vaschak Work Phone: [facility] 10-28-2023 14:51-0400 Heart rate 64 /min DO Marie Vaschak Work Phone: [facility] 10-28-2023 14:51-0400 Respiratory rate 18 /min DO Marie Vaschak Work Phone: [facility] 10-28-2023 14:51-0400 SaO2% (BldA) [Mass fraction] 96 % DO Marie Vaschak Work Phone: [facility] 10-28-2023 14:51-0400 Systolic blood pressure 144 mm[Hg] DO Marie Vaschak Work Phone: [facility] 10-21-2023 08:36-0400 Body height 177.8 cm DO Marie Vaschak Work Phone: [facility] 10-21-2023 08:36-0400 Body mass index (BMI) [Ratio] 21.2 kg/m2 DO Marie Vaschak Work Phone: [facility] 10-21-2023 08:36-0400 Body weight 67.13 kg DO Marie Vaschak Work Phone: [facility] 09-28-2023 10:26-0400 Body height 177.8 cm DO Marie Vaschak Work Phone: [facility] 09-28-2023 10:26-0400 Body mass index (BMI) [Ratio] 21.2 kg/m2 DO Marie Vaschak Work Phone: [facility] 09-28-2023 10:26-0400 Body weight 67.13 kg DO Marie Vaschak Work Phone: [facility] 09-27-2023 15:40-0400 Diastolic blood pressure 74 mm[Hg] DO Marie Vaschak Work Phone: [facility] 09-27-2023 15:40-0400 Heart rate 72 /min DO Marie Vaschak Work Phone: [facility] 09-27-2023 15:40-0400 Systolic blood pressure 140 mm[Hg] DO Marie Vaschak Work Phone: [facility] 09-06-2023 12:00-0500 Body temperature 98.4 [degF] DO Marie Vaschak Work Phone: [facility] 09-06-2023 12:00-0500 Diastolic blood pressure 62 mm[Hg] DO Marie Vaschak Work Phone: [facility] 09-06-2023 12:00-0500 Heart rate 67 /min DO Marie Vaschak Work Phone: [facility] 09-06-2023 12:00-0500 Respiratory rate 16 /min DO Marie Vaschak Work Phone: [facility] 09-06-2023 12:00-0500 SaO2% (BldA) [Mass fraction] 97 % DO Marie Vaschak Work Phone: [facility] 09-06-2023 12:00-0500 Systolic blood pressure 108 mm[Hg] DO Marie Vaschak Work Phone: [facility] 09-06-2023 06:00-0500 Body weight 68.2 kg DO Marie Hurleychak Work Phone: [facility] 09-01-2023 15:42-0500 Body height 177.8 cm DO Marie Hurleychak Work Phone: [facility] 08-16-2023 14:07-0500 Body height 177.8 cm Sammy Wolff GRAIN FARMWORKER-INTER COM INSTALLER Work Phone: [facility] 08-16-2023 14:07-0500 Body mass index (BMI) [Ratio] 20.09 kg/m2 Sammy Wolff GRAIN FARMWORKER-INTER COM INSTALLER Work Phone: [facility] 08-16-2023 14:07-0500 Body weight 63.5 kg Sammy Wolff GRAIN FARMWORKER-INTER COM INSTALLER Work Phone: [facility] 08-16-2023 14:07-0500 Diastolic blood pressure 80 mm[Hg] Sammy Wolff GRAIN FARMWORKER-INTER COM INSTALLER Work Phone: [facility] 08-16-2023 14:07-0500 Heart rate 72 /min Sammy Wolff GRAIN FARMWORKER-INTER COM INSTALLER Work Phone: [facility] 08-16-2023 14:07-0500 Systolic blood pressure 134 mm[Hg] Sammy Wolff GRAIN FARMWORKER-INTER COM INSTALLER Work Phone: [facility] 07-16-2023 22:45-0500 Diastolic blood pressure 95 mm[Hg] DO Marie Hurleychak Work Phone: [facility] 07-16-2023 22:45-0500 Heart rate 69 /min DO Marie Hurleychak Work Phone: [facility] 07-16-2023 22:45-0500 Respiratory rate 16 /min DO Marie Hurleychak Work Phone: [facility] 07-16-2023 22:45-0500 SaO2% (BldA) [Mass fraction] 98 % DO Marie Vaschak Work Phone: [facility] 07-16-2023 22:45-0500 Systolic blood pressure 164 mm[Hg] DO Marie Ileana Work Phone: [facility] 07-16-2023 13:24-0500 Body height 177.8 cm DO Marie Castro Work Phone: [facility] 07-16-2023 13:24-0500 Body temperature 96.7 [degF] DO Marie Castro Work Phone: [facility] 07-16-2023 13:24-0500 Body weight 63.95 kg DO Marie Castro Work Phone: [facility] 05-25-2023 13:41-0500 Diastolic blood pressure 88 mm[Hg] Govind Davis DO Work Phone: [facility] 05-25-2023 13:41-0500 Systolic blood pressure 136 mm[Hg] Govind Davis DO Work Phone: [facility] 05-25-2023 13:37-0500 Body height 177.8 cm Govind Davis DO Work Phone: [facility] 05-25-2023 13:37-0500 Body mass index (BMI) [Ratio] 19.51 kg/m2 Govind Davis DO Work Phone: [facility] 05-25-2023 13:37-0500 Body weight 61.69 kg Govind Davis DO Work Phone: [facility] 05-25-2023 13:37-0500 Heart rate 70 /min Govind Davis DO Work Phone: [facility] 05-08-2023 10:33-0400 Diastolic blood pressure 85 mm[Hg] DO Marie Ileana Work Phone: [facility] 05-08-2023 10:33-0400 Heart rate 97 /min DO Marie Castro Work Phone: [facility] 05-08-2023 10:33-0400 Respiratory rate 18 /min DO Marie Vaschak Work Phone: [facility] 05-08-2023 10:33-0400 Systolic blood pressure 156 mm[Hg] DO Marie Vaschak Work Phone: [facility] 05-08-2023 05:00-0400 Body temperature 98.8 [degF] DO Marie Vaschak Work Phone: [facility] 05-08-2023 05:00-0400 SaO2% (BldA) [Mass fraction] 97 % DO Marie Vaschak Work Phone: [facility] 05-04-2023 11:00-0400 Body height 177.8 cm DO Marie Vaschak Work Phone: [facility] 05-03-2023 16:44-0400 Body weight 66.4 kg DO Marie Vaschak Work Phone: [facility] 05-03-2023 11:48-0400 Body temperature 98.1 [degF] DO Marie Vaschak Work Phone: [facility] 05-03-2023 11:48-0400 Diastolic blood pressure 77 mm[Hg] DO Marie Vaschak Work Phone: [facility] 05-03-2023 11:48-0400 Heart rate 55 /min DO Marie Vaschak Work Phone: [facility] 05-03-2023 11:48-0400 Respiratory rate 18 /min DO Marie Vaschak Work Phone: [facility] 05-03-2023 11:48-0400 SaO2% (BldA) [Mass fraction] 99 % DO Marie Vaschak Work Phone: [facility] 05-03-2023 11:48-0400 Systolic blood pressure 146 mm[Hg] DO Marie Vaschak Work Phone: [facility] 05-03-2023 05:40-0400 Body weight 67.6 kg DO Marie Castro Work Phone: [facility] 05-02-2023 00:00-0400 Inhaled oxygen flow rate 6 L/min DO Marie Ileana Work Phone: [facility] 04-30-2023 15:31-0400 Body mass index (BMI) [Ratio] 18.8 kg/m2 DO Marie Ileana Work Phone: [facility] 04-30-2023 15:25-0400 Body height 180.34 cm DO Marie Castro Work Phone: [facility] 04-28-2023 16:32-0400 Heart rate 63 /min DO Marie Castro Work Phone: [facility] 04-28-2023 16:24-0400 Diastolic blood pressure 83 mm[Hg] DO Marie Ileana Work Phone: [facility] 04-28-2023 16:24-0400 Respiratory rate 18 /min DO Marie Castro Work Phone: [facility] 04-28-2023 16:24-0400 SaO2% (BldA) [Mass fraction] 98 % DO Marie Castro Work Phone: [facility] 04-28-2023 16:24-0400 Systolic blood pressure 167 mm[Hg] DO Marie Jamak Work Phone: [facility] 04-28-2023 13:34-0400 Body temperature 97.2 [degF] DO Marie Jamak Work Phone: [facility] 04-28-2023 12:19-0400 Body height 180.34 cm DO Marie Ileana Work Phone: [facility] 04-28-2023 12:19-0400 Body weight 64.41 kg DO Marie Jamak Work Phone: [facility] 01-07-2022 09:35-0400 Diastolic blood pressure 95 mm[Hg] Gray Ross MD Work Phone: [employer] 01-07-2022 09:35-0400 Systolic blood pressure 160 mm[Hg] Gray Ross MD Work Phone: [employer] 01-07-2022 07:46-0400 Body temperature 97.81 [degF] Gray Ross MD Work Phone: [employer] 01-07-2022 07:46-0400 Heart rate 64 /min Gray Ross MD Work Phone: [employer] 01-07-2022 07:46-0400 Respiratory rate 15 /min Gray Ross MD Work Phone: [employer] 01-07-2022 07:46-0400 SaO2% (BldA) [Mass fraction] 98 % Gray Ross MD Work Phone: [employer] 01-03-2022 04:00-0400 Body height 177.8 cm Gray Ross MD Work Phone: [employer] 01-03-2022 04:00-0400 Body mass index (BMI) [Ratio] 20.81 kg/m2 Gray Ross MD Work Phone: [employer] 01-03-2022 04:00-0400 Body weight 65.8 kg Gray Ross MD Work Phone: [employer] Encounters Encounter Date Encounter Type Care Provider Facility Start: 04-11-2025 ambulatory Tristan [place] Facility:[facility] Start: 04-09-2025 End: 04-09-2025 Clinisync Result Encounter Generic External Data Provider [facility] External Department Unsolicited Start: 04-09-2025 End: 04-09-2025 Clinisync Result Encounter Generic External Data Provider [facility] External Department Unsolicited Start: 04-09-2025 End: 04-09-2025 ambulatory MARIE CASTRO Facility:[facility] Start: 04-09-2025 End: 04-10-2025 ambulatory MARIE CASTRO Facility:[facility] Start: 04-02-2025 End: 04-02-2025 Clinisync Result Encounter Generic External Data Provider [facility] External Department Unsolicited Start: 04-02-2025 End: 04-02-2025 Clinisync Result Encounter Generic External Data Provider [facility] External Department Unsolicited Start: 03-28-2025 End: 03-28-2025 Follow-up encounter Erick Khoi Peguero LPN Endocrinology Start: 03-27-2025 End: 03-27-2025 ambulatory Marie Castro DO Work Phone: [facility] Work Phone: Start: 03-27-2025 End: 03-27-2025 Patient encounter procedure Anat Perez MD -[facility] Work Phone: Start: 03-16-2025 End: 03-16-2025 Orders Only Ayana Zavala APRN.CNP Work Phone: Endocrinology Start: 03-02-2025 End: 03-02-2025 ambulatory Marie Castro Facility:[facility] Start: 03-02-2025 Non-patient / Non-visit [facility] Padilla [facility] Start: 02-13-2025 End: 02-13-2025 Clinisync Result Encounter Generic External Data Provider [facility] External Department Unsolicited Start: 02-13-2025 End: 02-13-2025 Clinisync Result Encounter Generic External Data Provider [facility] External Department Unsolicited Start: 02-05-2025 End: 02-06-2025 ambulatory Stalin Alamo APRN.INTER COM INSTALLER Work Phone: Rheumatology Comment on above: Blood test Start: 02-05-2025 End: 02-05-2025 Telephone encounter Ayana Zavala APRN.CNP Work Phone: Endocrinology Start: 01-16-2025 End: 01-16-2025 ambulatory MARIE CSATRO Not Available Start: 01-08-2025 End: 01-08-2025 Orders [...] Start: 12-19-2024 End: 12-25-2024 Telephone encounter Ayana Zavala APRN.INTER COM INSTALLER Work Phone: Endocrinology Comment on above: Refill Request Start: 12-12-2024 End: 12-12-2024 Refill Ayana Zavala APRN.INTER COM INSTALLER Work Phone: Endocrinology Comment on above: Refill Request Start: 11-30-2024 End: 11-30-2024 ambulatory Marie Castro Facility:[facility] Start: 11-30-2024 Non-patient / Non-visit [facility] Start: 11-01-2024 [...] Start: 10-26-2024 End: 10-26-2024 ambulatory MARIE CASTRO Facility:[facility] Start: 10-23-2024 End: 10-23-2024 Clinisync Result Encounter Generic External Data Provider [facility] External Department Unsolicited Start: 10-23-2024 End: 10-23-2024 Clinisync Result Encounter Generic External Data Provider [facility] External Department Unsolicited Start: 10-13-2024 End: 10-13-2024 Telephone encounter Gaye Mata RN [facility] Comment on above: Omnipod/Dexcom issue s Start: 10-13-2024 End: 10-13-2024 ambulatory Marie Castro DO Work Phone: [facility] Work Phone: Start: 10-13-2024 End: 10-13-2024 Patient encounter procedure Marie Castro DO Work Phone: [facility] Work Phone: Start: 10-11-2024 End: 10-11-2024 Telephone encounter Ayana Zavala APRN.CNP Work Phone: Endocrinology Comment on above: Insurance Authorizat ion (insulin pump cart,auto,BT,G6/7 (OMNIPOD 5 G6-G7 PODS, GEN 5,) crtg) Omnipod 5/Dexcom G7 issues Start: 10-10-2024 End: 10-10-2024 Telephone encounter Gaye Mata RN [facility] Comment on above: Dexcom G7 CGM supply issues Start: 10-04-2024 End: 10-11-2024 Refill Ayana Zavala APRN.CNP Work Phone: Endocrinology Comment on above: Med Change Request Start: 10-04-2024 End: 10-04-2024 Telephone encounter Gaye Mata RN [facility] Comment on above: Omnipod 5/Dexcom hel p Dexcom G7 CGM supply issues Start: 09-27-2024 End: 09-28-2024 ambulatory Ayana Zavala APRN.CNP Work Phone: Endocrinology Comment on above: Glucose Start: 09-27-2024 End: 09-27-2024 Telephone encounter Gaye Mata RN [facility] Comment on above: Omnipod 5 pump follo w up call Start: 09-26-2024 End: 09-26-2024 Follow-up encounter Ayana Zavala APRN.CNP Work Phone: Endocrinology Start: 09-26-2024 End: 09-26-2024 Telephone encounter Ayana Zavala APRN.CNP Work Phone: Endocrinology Start: 09-25-2024 End: 09-25-2024 ambulatory [facility] Facility:[facility] Start: 09-25-2024 End: 09-25-2024 Patient encounter procedure Ayana Zavala APRN.CNP Work Phone: Endocrinology Comment on above: 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, 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); 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); Insulin pump status; Insulin pump titration Start: 09-22-2024 End: 09-22-2024 Orders Only Ayana Zavala APRN.CNP Work Phone: Endocrinology Comment on above: 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, 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) Omnipod 5 pump issue Start: 09-21-2024 End: 09-21-2024 Telephone encounter Gaye Mata RN [facility] Comment on above: Omipod 5 upgrade fol low up call Start: 09-13-2024 End: 09-13-2024 Clinisync Result Encounter Generic External Data Provider [facility] External Department Unsolicited Start: 09-13-2024 End: 09-13-2024 Clinisync Result Encounter Generic External Data Provider [facility] External Department Unsolicited Start: 09-04-2024 End: 09-04-2024 ambulatory [facility] Facility:[facility] Start: 09-04-2024 End: 09-04-2024 Nursing evaluation of patient and report Gaye Mata RN [facility] Comment on above: 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, 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) Start: 08-31-2024 End: 08-31-2024 Telephone encounter Gaye Mata RN [facility] Comment on above: Appointment Start: 08-31-2024 End: 08-31-2024 ambulatory Marie Castro DO Work Phone: [facility] Work Phone: Start: 08-31-2024 End: 08-31-2024 Patient encounter procedure Marie Castro DO Work Phone: [facility] Work Phone: Start: 08-30-2024 End: 08-30-2024 Office outpatient visit 40 minutes Marie Hurleyjorge Work Phone: [facility] Comment on above: Abdominal wall absce [...] Start: 08-29-2024 End: 08-29-2024 ambulatory Marie Castro Facility:[facility] Start: 08-29-2024 Non-patient / Non-visit Marie Castro Work Phone: [facility] Start: 08-15-2024 End: 08-15-2024 Telephone encounter Ayana Zavala APRN.CNP Work Phone: Endocrinology Comment on above: Forms ([employer] Physcians order) Start: 08-09-2024 End: 08-09-2024 Telephone encounter Ayana Zavala APRN.CNP Work Phone: Endocrinology Comment on above: Forms ([employer] [facility] note) Start: 07-25-2024 End: 07-25-2024 ambulatory MARIE CASTRO Facility:[facility] Start: 07-25-2024 End: 07-25-2024 Nursing evaluation of patient and report Gaye Mata RN [facility] Comment on above: 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, 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) Start: 07-21-2024 End: 07-21-2024 Clinisync Result Encounter Generic External Data Provider [facility] External Department Unsolicited Start: 07-21-2024 End: 07-21-2024 Clinisync Result Encounter Generic External Data Provider [facility] External Department Unsolicited Start: 07-21-2024 End: 07-21-2024 Telephone encounter Gaye Mata RN [facility] Comment on above: Appointment Start: 07-20-2024 End: 07-20-2024 ambulatory MAREI CASTRO Not Available Start: 07-20-2024 End: 07-20-2024 Transitional care manage srvc 7 day discharge Yomi Chong NP Work Phone: [facility] Comment on above: Chronic systolic CHF (congestive heart failure), NYHA class 2 (CMS/HCC) (Primary Dx); Pancreatic insufficiency (CMS/HCC); History of bleeding peptic ulcer; Coronary arteriosclerosis (CMS/HCC); 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); Orthostatic hypotension; Bronchitis Start: 07-17-2024 Non-patient / Non-visit Marie Castro DO Work Phone: [facility] Work Phone: Start: 07-16-2024 End: 07-17-2024 ambulatory Indranara Morrow Dodeepthileeroythomas Facility:[facility] Start: 07-16-2024 End: 07-17-2024 Evaluation and management of inpatient Marie Ileana CURTIS Work Phone: [facility] Work Phone: Start: 07-16-2024 End: 07-17-2024 observation encounter Marie Castro DO Work Phone: [facility] Work Phone: Start: 07-13-2024 End: 07-21-2024 E-mail encounter from caregiver Gaye Mata RN [facility] Start: 07-13-2024 End: 07-13-2024 Telephone encounter Gaye Mata RN [facility] Comment on above: Omnipod DASH to 5 pu mp upgrade Start: 07-13-2024 End: 07-21-2024 ambulatory Gaye Mata RN [facility] Start: 07-13-2024 End: 07-13-2024 Postop follow up visit related to original px Stephanie H Shreyas DO Work Phone: [facility] Comment on above: Abdominal wall absce ss (Primary Dx) Start: 07-06-2024 End: 07-06-2024 Telephone encounter Ayana Zavala APRN.CNP Work Phone: Endocrinology Start: 07-06-2024 End: 07-06-2024 ambulatory MARIE CASTRO Facility:[facility] Start: 07-06-2024 End: 07-06-2024 Patient encounter procedure [...] 06-20-2024 End: 06-21-2024 External Result Encounter Stephanie Dirk Shreyas DO Work Phone: [facility] External Department Unsolicited Start: 06-20-2024 End: 06-21-2024 External Result Encounter Stephanie H Shreyas DO Work Phone: [facility] External Department Unsolicited Start: 06-20-2024 Non-patient / Non-visit Marie Castro DO Work Phone: [facility] Start: 06-19-2024 End: 06-21-2024 Evaluation and management of inpatient Marie Castro DO Work Phone: [facility] Work Phone: Start: 06-19-2024 End: 06-21-2024 ambulatory Marie Castro Facility:[facility] Start: 06-19-2024 End: 06-19-2024 Office outpatient visit 40 minutes Marie Castro DO Work Phone: [facility] Comment on above: Abscess of abdominal wall (Primary Dx); ICD (implantable cardioverter-defibrillator) in place; H/O splenectomy; 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); Chronic systolic CHF (congestive heart failure), NYHA class 2 (CMS/HCC); Acquired total absence of pancreas Start: 06-19-2024 End: 06-19-2024 ambulatory MARIE CASTRO Not Available Start: 06-16-2024 End: 06-18-2024 Evaluation and management of inpatient Marie Castro DO Work Phone: [facility] Work Phone: Start: 05-30-2024 End: 05-30-2024 Transitional care manage srvc 7 day discharge Marie Castro DO Work Phone: [facility] Comment on above: ICD (implantable [...] (CMS/HCC) Start: 05-30-2024 End: 05-30-2024 ambulatory MARIE CASTRO Not Available Start: 05-25-2024 Non-patient / Non-visit Marie Castro DO Work Phone: [facility] Work Phone: Start: 05-24-2024 End: 05-25-2024 Evaluation and management of inpatient Marie Castro DO Work Phone: [facility] Work Phone: Start: 05-24-2024 Non-patient / Non-visit Marie Castro DO Work Phone: [facility] Start: 05-16-2024 End: 05-16-2024 Patient encounter procedure DO Marie Castro Work Phone: [facility]-Pre-Surgical Testing Work Phone: Start: 05-16-2024 End: 05-16-2024 ambulatory DO Marie Castro Work Phone: [facility] Work Phone: Start: 05-16-2024 Encounter for preprocedural laboratory examination Abdulaziz Singleton [facility] Start: 05-10-2024 End: 05-10-2024 ambulatory DO Marie Castro Work Phone: [facility] Work Phone: Start: 05-10-2024 End: 05-10-2024 Patient encounter procedure DO Marie Castro Work Phone: [facility] Work Phone: Start: 04-26-2024 End: 04-26-2024 ambulatory DO Marie Yunk Work Phone: [facility] Work Phone: Start: 04-26-2024 End: 04-26-2024 Patient encounter procedure DO Marie Yunk Work Phone: [facility] Work Phone: Start: 04-26-2024 End: 04-26-2024 Patient encounter procedure DO Marie Castro Work Phone: [facility] Start: 04-26-2024 End: 04-26-2024 ambulatory DO Marie Castro Work Phone: [facility] Work Phone: Start: 04-24-2024 End: 04-24-2024 Office outpatient visit 25 minutes Stalin Alamo NP Work Phone: [facility] Comment on above: Pancreatic insuffici ency (CMS/HCC) (Primary Dx); Coronary arteriosclerosis (CMS/HCC); 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 (CMS/HCC); 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); H pylori ulcer Start: 04-24-2024 End: 04-24-2024 ambulatory MARIE CASTRO Not Available Start: 04-17-2024 End: 04-17-2024 Office outpatient visit 40 minutes Marie Castro DO Work Phone: [facility] Comment on above: Bronchitis (Primary Dx); Type [...] (CMS/HCC); Insulin pump in place; Pancreatic insufficiency (CMS/HCC); Duodenal ulcer; Medicare annual wellness visit, subsequent; ACP (advance care planning); Bradycardia; Orthostatic hypotension; Acute on chronic systolic congestive heart failure (CMS/HCC) Start: 04-17-2024 End: 04-17-2024 Patient encounter procedure Marie Castro DO Work Phone: [facility] Start: 04-17-2024 End: 04-17-2024 ambulatory MARIE J VASCHAK Not Available Start: 04-05-2024 End: 04-05-2024 ambulatory [facility] Start: 03-27-2024 End: 03-27-2024 ambulatory DO Marie Hurleychak Work Phone: [facility] Work Phone: Start: 03-27-2024 End: 03-27-2024 Patient encounter procedure DO Marie Xavichak Work Phone: [facility] Work Phone: Start: 03-15-2024 End: 03-15-2024 ambulatory DO Marie Hurleychak Work Phone: [facility] Work Phone: Start: 03-15-2024 End: 03-15-2024 Patient encounter procedure DO Marie Xavichak Work Phone: [facility] Work Phone: Start: 03-10-2024 End: 03-10-2024 ambulatory DO Marie Yunk Work Phone: [facility] Work Phone: Start: 03-10-2024 End: 03-10-2024 Discharged Recurring DO Marie Yunk Work Phone: [facility]-Infusion Therapy - O/P Work Phone: Start: 03-09-2024 End: 03-09-2024 Patient encounter procedure DO Marie Yunk Work Phone: [facility]-Electrodiagnostics Work Phone: Start: 03-09-2024 End: 03-09-2024 ambulatory DO Marie Yunk Work Phone: [facility] Work Phone: Start: 03-09-2024 Non-patient / Non-visit DO Andrei marsha Jamak Work Phone: [facility] Work Phone: Start: 03-08-2024 Registered Recurring DO Marie Xavichak Work Phone: [facility]-Infusion Therapy - O/P Work Phone: Start: 02-29-2024 End: 02-29-2024 ambulatory DO Marie Yunk Work Phone: [facility] Work Phone: Start: 02-29-2024 End: 02-29-2024 Patient encounter procedure DO Marie Jamak Work Phone: [facility] Work Phone: Start: 02-28-2024 End: 02-28-2024 ambulatory MARIE YUNK Not Available Start: 02-16-2024 End: 02-16-2024 ambulatory DO Marie Jamak Work Phone: [facility] Work Phone: Start: 02-16-2024 End: 02-16-2024 Patient encounter procedure DO Marie Jamak Work Phone: [facility] [place] Work Phone: Start: 02-15-2024 End: 02-15-2024 ambulatory DO Marie Yunk Work Phone: [facility] Work Phone: Start: 02-15-2024 End: 02-15-2024 Patient encounter procedure DO Marie Jamak Work Phone: [facility] Work Phone: Start: 02-14-2024 End: 02-14-2024 Patient encounter procedure DO Marie Jamak Work Phone: [facility] [place] Work Phone: Start: 02-14-2024 End: 02-14-2024 ambulatory DO Marie Jamak Work Phone: [facility] Work Phone: Start: 02-11-2024 End: 02-11-2024 ambulatory DO Marie Castro Work Phone: [facility] Work Phone: Start: 02-11-2024 End: 02-11-2024 Patient encounter procedure DO Marie Castro Work Phone: [facility] [place] Work Phone: Start: 02-10-2024 End: 02-10-2024 ambulatory YOMI E ARLETTE Not Available Start: 02-06-2024 Non-patient / Non-visit DO Andrei ert Vaschak Work Phone: [facility] Work Phone: Start: 02-06-2024 Non-patient / Non-visit DO Andrei ert Vaschak Work Phone: [facility] Work Phone: Start: 02-05-2024 End: 02-08-2024 Evaluation and management of inpatient DO Marie Castro Work Phone: [facility] Work Phone: Start: 01-24-2024 End: 01-24-2024 ambulatory MAGDALENE Hallman [facility] Start: 01-21-2024 End: 01-24-2024 Evaluation and management of inpatient PERCY RENNYHEMPSTEAD Светлана [facility] Start: 11-11-2023 Non-patient / Non-visit DO Andrei ert Vaschak Work Phone: [facility] Work Phone: Start: 11-11-2023 End: 11-11-2023 Admission to same day surgery center DO Marie Yunk Work Phone: [facility]-Digestive Health Work Phone: Start: 11-04-2023 End: 11-04-2023 ambulatory None Provider Facility:[facility] Start: 10-28-2023 End: 10-28-2023 ambulatory DO Marie Jamak Work Phone: [facility] Work Phone: Start: 10-28-2023 End: 10-28-2023 Patient encounter procedure DO Marie Xavichak Work Phone: [facility] Work Phone: Start: 10-21-2023 End: 10-21-2023 ambulatory DO Marie Vaschak Work Phone: [facility] Work Phone: Start: 10-21-2023 End: 10-21-2023 Patient encounter procedure DO Marie Xavichak Work Phone: [facility] G[facility]ology Work Phone: Start: 10-13-2023 End: 10-13-2023 ambulatory None Provider Facility:[facility] Start: 09-28-2023 End: 09-28-2023 ambulatory DO Marie Xavichak Work Phone: [facility] Work Phone: Start: 09-28-2023 End: 09-28-2023 Patient encounter procedure DO Marie Jamak Work Phone: [facility] Neurosurgery Work Phone: Start: 09-27-2023 End: 09-27-2023 ambulatory DO Marie Xavichak Work Phone: [facility] Work Phone: Start: 09-27-2023 End: 09-27-2023 Discharged Recurring DO Marie Xavichak Work Phone: [facility]-Infusion Therapy - O/P Work Phone: Start: 09-24-2023 End: 09-24-2023 ambulatory DO Marie Vaschak Work Phone: [facility] Work Phone: Start: 09-24-2023 End: 09-24-2023 Patient encounter procedure DO Marie Castro Work Phone: [facility]-XRay [facility] [place] Work Phone: Start: 09-06-2023 Non-patient / Non-visit DO Andrei Yunk Work Phone: [facility] Re[facility] Spine Work Phone: Start: 08-31-2023 Non-patient / Non-visit DO Andrei ert Jamak Work Phone: [facility] G[facility] Work Phone: Start: 08-31-2023 End: 09-06-2023 Evaluation and management of inpatient DO Marie Castro Work Phone: [facility]-4 [facility] Work Phone: Start: 08-16-2023 End: 08-16-2023 ambulatory SAMMY WOLFF [facility] [employer] Other Start: 08-16-2023 End: 08-16-2023 Office outpatient visit 15 minutes Sammy Wolff GRAIN FARMWORKER-INTER COM INSTALLER Work Phone: [facility] Comment on above: Cardiomyopathy, isch emic (Primary Dx); ASHD (arteriosclerotic heart disease); BMI 20.0-20.9, adult; Orthopnea Start: 08-16-2023 Telephone encounter Anat JENKINS [facility] Start: 07-27-2023 End: 07-27-2023 ambulatory DO Marie Castro Work Phone: [facility] Work Phone: Start: 07-27-2023 End: 07-27-2023 Patient encounter procedure DO Marie Castro Work Phone: [facility] Start: 07-16-2023 End: 07-16-2023 Admission to same day surgery center DO Marie Vaschak Work Phone: [facility]-Food And Beverage Manager Work Phone: Start: 07-16-2023 End: 07-16-2023 ambulatory DO Marie Vaschak Work Phone: [facility] Work Phone: Start: 06-23-2023 End: 06-23-2023 ambulatory [facility] Ambulatory Start: 06-22-2023 End: 06-22-2023 ambulatory Ashwini Conrad Other [employer] Other Start: 06-22-2023 Telephone encounter Ashwini Tillman [facility] Start: 06-11-2023 End: 06-11-2023 ambulatory DO Marie Yunk Work Phone: [facility] Work Phone: Start: 06-11-2023 End: 06-11-2023 Patient encounter procedure DO Marie Jamak Work Phone: [facility] Start: 06-02-2023 End: 06-09-2023 ambulatory UNKNOWN PROVIDER Facility:[facility] Start: 05-26-2023 Telephone encounter Ashwini Tillman [facility] Start: 05-26-2023 End: 05-26-2023 ambulatory DO Marie Jamak Work Phone: [facility] Work Phone: Start: 05-26-2023 End: 05-26-2023 Patient encounter procedure DO Marie Vaschak Work Phone: [facility] Start: 05-25-2023 End: 05-25-2023 ambulatory [facility] Ambulatory Start: 05-25-2023 End: 05-25-2023 Office consultation new/estab patient 60 min [facility] DO Work Phone: [facility] Comment on above: NSTEMI (non-ST eleva robert myocardial infarction) ([facility]/HCC) (Primary Dx); Abnormal stress test; ASHD (arteriosclerotic heart disease); Essential hypertension; Diabetes mellitus type II, non insulin dependent (CMS/HCC); Closed fracture of right hip, initial encounter (CMS/HCC) Start: 05-21-2023 End: 05-21-2023 ambulatory Ashwini Conrad Other [employer] Other Start: 05-21-2023 Postop follow up vis it related to original px Ashwini Howiebrittni [facility] Start: 05-21-2023 End: 05-21-2023 Patient encounter procedure DO Marie Castro Work Phone: [facility] [place] Start: 05-03-2023 End: 05-08-2023 Evaluation and management of inpatient DO Marie Castro Work Phone: [facility] Work Phone: Start: 04-28-2023 End: 05-03-2023 Evaluation and management of inpatient DO Marie Castro Work Phone: [facility]-4 [facility] Work Phone: Start: 04-23-2023 End: 04-24-2023 ambulatory None Provider Facility:[facility] Start: 01-20-2023 End: 08-30-2023 Patient encounter procedure Stalin Alamo NP Work Phone: [facility] Start: 06-05-2022 End: 06-06-[address] MARIE CASTRO Facility:[facility] Start: 05-18-2022 Encounter for other specified special examinations DR MARIE CASTRO [facility] Start: 05-14-2022 End: 05-15-[address] MARIE CASTRO Facility:[facility] Start: 05-14-2022 End: 05-15-2022 Encounter for other specified special examinations DR MARIE CASTRO Facility:[facility] Start: 01-02-2022 End: 01-07-2022 Evaluation and management of inpatient ADRI LESKOVAN [facility] Start: 01-02-2022 End: 01-07-2022 Evaluation and management of inpatient Gray Ross MD Work Phone: [id number] Comment on above: Acute gastric ulcer with perforation (HCC) (Primary Dx); Gastric perforation (HCC) Start: 01-02-2022 End: 01-02-[address] SALVADOR NARANJO Facility:[facility] Procedures Date Procedure Procedure Detail Performing Clinician Start: 04-09-2025 [facility] GLUCOSE P FAST SERPL-[facility] Generic Ex ternal Data Provider Start: 04-02-2025 ALL PRO BNP Generic External Data Provider Start: 04-02-2025 [facility] CMP (CMP) (FOR REMOTE [facility] USE) Gener ic External Data Provider Start: 02-13-2025 GLUTAMIC AC DECARBOXYLASE AB Ayana cooper APRN.INTER COM INSTALLER Work Phone: Start: 02-13-2025 [facility] HEMOGLOBIN A1C Generic External Data Provider Start: 02-13-2025 [facility] GLUCOSE BLOOD Generic External Data Provider Start: 01-08-2025 Creatinine blood Marie Castro DO Work Phone: Start: 10-26-2024 Hemoglobin A1c/Hemoglobin.total in Blood Ayana Zavala APRN.INTER COM INSTALLER Work Phone: Start: 10-23-2024 ALL BASIC METABOLIC PANEL Generic Millinery Copyist al Data Provider Start: 10-23-2024 ALL PRO BNP Generic External Data Provider Start: 09-13-2024 ALL BASIC METABOLIC PANEL Generic Mill[employer] Copyist al Data Provider Start: 09-13-2024 ALL PRO BNP Generic External Data Provider Start: 07-21-2024 ALL BASIC METABOLIC PANEL Generic Millinery Copyist al Data Provider Start: 07-17-2024 Respiratory Panel (PCR) Marie Delatorre Work Phone: Start: 07-16-2024 CT angiography of thorax Marie Castro DO Work Phone: Start: 07-16-2024 Plain chest X-ray Marie Castro DO Work Phone: Start: 07-06-2024 Gluc bld gluc mntr dev cleared fda spec home use Ayana Zavala APRN.INTER COM INSTALLER Work Phone: Start: 07-06-2024 GLOOKO ON DEMAND [facility] Provider Start: 07-06-2024 Hemoglobin A1c/Hemoglobin.total in Blood Ayana Zavala INTER COM INSTALLER Work Phone: Start: 06-20-2024 Debridement Marie Castro DO Work Phone: Start: 06-20-2024 Aerobic microbial culture Marie Castro DO Work Phone: Start: 06-20-2024 Anaerobic microbial culture Marie melendez DO Work Phone: Start: 06-20-2024 Gram stain microscopy Marie Castro DO Work Phone: Start: 06-20-2024 AEROBIC CULTURE Stephanie H Marquiseranditiffanienahomy DO Work Phone: Start: 06-20-2024 ANAEROBIC CULTURE Stephanie H Itterezarandiquentin DO Work Phone: Start: 06-16-2024 Aerobic microbial [...] CT cervical spine without contrast DO January sloan Xavijorge Work Phone: Start: 02-05-2024 CT of head without contrast DO Marie Iyer shannan Work Phone: Start: 02-05-2024 Plain chest X-ray [...] melendez Work Phone: Start: 07-16-2023 CL PCI ASSOCIATE CREATIVE DIRECTOR Ea Add LAD DO Marie Castro Work [...] Start: 01-04-2022 Assay of phosphorus inorganic Kings Cayla wang MD Work Phone: Start: 01-04-2022 BASIC METABOLIC PANEL W/ REFLEX TO MG FOR LOW K Kings Francis MD Work Phone: Start: 01-04-2022 End: 01-04-2022 Assay of phosphorus inorganic Kings Cayla wang MD Work Phone: Start: 01-04-2022 BASIC [...] End: 01-03-2022 Assay of phosphorus inorganic Kings N Brayan wang MD Work Phone: Start: 01-03-2022 BASIC [...] Glucose blood reagent strip Delon Hampton Start: 01-02-2022 Glucose blood reagent strip Delon Hampton Start: 01-02-2022 End: 01-02-2022 Glucose blood reagent strip Delon Hampton Start: 01-02-2022 Radiologic exam abdomen 1 view Emi Ki m DO Start: 01-02-2022 Culture bacterial quanttative colony count urine Tristan Bueno DO Work Phone: Start: 01-02-2022 End: 01-02-2022 Glucose blood reagent strip Delon Hampton Start: 01-02-2022 End: 01-02-2022 BOWEL RESECTION HEMICOLECTOMY LAPAROSCOPIC ROBOTIC Tristan Bueno DO Work Phone: Start: 01-02-2022 End: 01-02-2022 EGD DIAGNOSTIC ONLY Tristan Sotomayor Bueno DO Work Phone: Start: 01-02-2022 Basic metabolic panel calcium total Kim Johnson MD Work Phone: Start: 01-02-2022 Hepatic function panel Breana Johnosn MD Work Phone: Start: 01-02-2022 LACTATE, SEPSIS Breana Johnson MD Work Phone: Start: 01-02-2022 Glucose blood reagent strip Gray Lan MD Work Phone: Start: 12-30-2019 H/O splenectomy H/O splenectomy Staciajamilanasima Omid CAMPAIGN CONSULTANT Work Phone: H/O splenectomy H/O splenectomy Marie J Vaschak DO Work Phone: H/O splenectomy H/O splenectomy Marie J Vaschak DO Work Phone: H/O splenectomy H/O splenectomy Marie J Vaschak DO Work Phone: Plan of Treatment Date Care Activity Detail Author Start: 11-04-2033 Urine microalbumin profile DTaP,Tdap,Td Vaccine (4 - Td or Tdap) [facility] Start: 03-18-2028 DTaP/Tdap/Td vaccine (3 - Td or Tdap) DTaP/Tdap/Td vaccine (3 - Td or Tdap) [facility] Start: 03-18-2028 DTaP/Tdap/Td Vaccines (3 - Td or Tdap) DTaP/Tdap/Td Vaccines (3 - Td or Tdap) [facility] Start: 07-06-2027 Diabetes Screening Diabetes Screening [facility] Start: 09-25-2025 Hepatitis B screening Urine Albumin:Creatinine Ratio [facility] Start: 09-25-2025 Hepatitis B surface antibody level LDL Cholesterol [facility] Start: 09-25-2025 Urine screening for protein Diabetes: Urine Protein Screening [facility] Start: 04-18-2025 ambulatory Ambulatory Facility:[facility] Start: 04-17-2025 Medicare Annual Wellness (AWV) Medicare Annual Wellness (AWV) [facility] Start: 04-09-2025 End: 04-09-2025 Patient encounter procedure 04/09/2025 2:00 PM EDT Office Visit Endocrinology [address] [facility] [place] [address] Ayana Zavala APRN.INTER COM INSTALLER [address] [place] [address] *R/S from 01/25 Endocrinology Comment on above: *R/S from 01/25 Start: 03-27-2025 Patient referral [facility] Work Phone: Start: 03-12-2025 Influenza vaccination Influenza Vaccine (#1) [facility] Start: 02-06-2025 End: 05-08-2025 Glutamate decarboxylase 65 Ab [Units/volume] in Serum GLUTAMIC AC DECARBOXYLASE AB Lab Routine 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, with long-term current use of insulin (HCC) Expected: 02/06/2025, Expires: 05/08/2025 [facility] Comment on above: Expected: 02/06/2025, Expires: Start: 02-06-2025 End: 05-08-2025 Hemoglobin A1c in Blood HEMOGLOBIN A1C Lab Routine 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, with long-term current use of insulin (HCC) Expected: 02/06/2025, Expires: 05/08/2025 [facility] Work Phone: Comment on above: Expected: 02/06/2025, Expires: Start: 02-05-2025 End: 05-07-2025 C peptide [Mass/volume] in Serum or Plasma C-PEPTIDE BLD Lab Routine 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, with long-term current use of insulin (HCC) Expected: 02/05/2025, Expires: 05/07/2025 [facility] Comment on above: Expected: 02/05/2025, Expires: Start: 02-05-2025 End: 05-07-2025 Fasting glucose [Mass/volume] in Serum or Plasma GLUCOSE, FASTING Lab Routine 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, with long-term current use of insulin (HCC) Expected: 02/05/2025, Expires: 05/07/2025 [facility] Work Phone: Comment on above: Expected: 02/05/2025, Expires: Start: 01-25-2025 Hemoglobin A1c measurement [facility] Start: 01-25-2025 End: 01-25-2025 Patient encounter procedure 01/25/2025 2:00 PM EDT Office Visit Endocrinology [address] [facility] [place], [place] [id number] Ayana Zavala, GRAIN FARMWORKER.INTER COM INSTALLER [address] [place] [address] 2 month follow up DM Endocrinology Comment on above: 2 month follow up DM Start: 01-16-2025 End: 01-16-2025 Professional / ancillary services management 01/16/2025 11:30 AM EDT Ancillary Procedure [facility] [address] [place] [address] [facility] [address] Start: 01-03-2025 End: 01-03-2026 Creatinine [Mass/volume] in Serum or Plasma Creatinine, Serum Lab Routine Pleurisy Expected: 01/03/2025 (Approximate), Expires: 01/03/2026 [facility] Comment on above: Expected: 01/03/2025 (Approximate), Expi res: 01/03/2026 Start: 01-03-2025 End: 04-05-2025 CTA Chest vessels WO and W contrast IV CT angiogram chest Imaging Routine Pleurisy Expected: 01/03/2025 (Approximate), Expires: 04/05/2025 [facility] Work Phone: Comment on above: Expected: 01/03/2025 (Approximate), Expi res: 04/05/2025 Start: 11-23-2024 Glaucoma screening Diabetes: Retinopathy Screening [facility] Start: 11-13-2024 Covid-19 Vaccine ( season) Covid-19 Vaccine ( season) [facility] Start: 10-26-2024 End: 10-26-2024 Patient encounter procedure 10/26/2024 12:15 PM EDT Office Visit Endocrinology [address] [place] [address] Ayana Zavala, AMADA.INTER COM INSTALLER [address] [facility] [place] [address] Return in about 4 weeks (around 10/23/2024). Endocrinology Comment on above: Return in about 4 weeks (around ). Start: 10-04-2024 Hemoglobin A1c measurement [facility] Start: 09-25-2024 End: 09-25-2024 Patient encounter procedure 09/25/2024 2:30 PM EDT Office Visit Endocrinology [address] [place] [address] Ayana Zavala, GRAIN FARMWORKER.INTER COM INSTALLER [address] [place] [address] Return in about 6 weeks (around 08/17/2024). Endocrinology Comment on above: Return in about 6 weeks (around 08/17/2024 ). Start: 09-25-2024 End: 12-25-2024 Comprehensive metabolic 2000 panel - Serum or Plasma [facility] Work Phone: Comment on above: Expected: 09/25/2024, Expires: Start: 09-25-2024 End: 12-25-2024 LIPID PANEL, NONFASTING [facility] Comment on above: Expected: 09/25/2024, Expires: Start: 09-25-2024 End: 12-25-2024 Microalbumin/Creatinine [Mass Ratio] in Urine [facility] Comment on above: Expected: 09/25/2024, Expires: Start: 09-08-2024 Urine screening for protein Diabetes: Urine Protein Screening [facility] Start: 09-04-2024 End: 09-04-2024 Nursing evaluation of patient and report 09/04/2024 1:00 PM EST Nurse Visit Diabetic Education [facility] [address] [place] [address] Gaye Mata, KARIN Omnipod DASH to Omnipod 5 upgrade with Dexcom G7 training [facility] Comment on above: Omnipod DASH to Omnipod 5 upgrade with D excom G7 training Start: 08-29-2024 End: 08-29-2024 Patient encounter procedure 08/29/2024 1:30 PM EST Office Visit Endocrinology [address] [facility] [place] [address] Ayana Zavala, GRAIN FARMWORKER.INTER COM INSTALLER [address] [place] [address] Return in about 6 weeks (around 08/17/2024). Endocrinology Comment on above: Return in about 6 weeks (around 08/17/2024 ). Start: 08-18-2024 End: 08-18-2024 Patient encounter procedure 08/18/2024 8:30 AM EST Office Visit Endocrinology [address] [facility] [place] [address] Ayana Zavala, GRAIN FARMWORKER.INTER COM INSTALLER [address] [place] [address] Return in about 6 weeks (around 08/17/2024). Endocrinology Comment on above: Return in about 6 weeks (around 08/17/2024 ). Start: 08-02-2024 End: 08-02-2024 Patient encounter procedure 08/02/2024 10:00 AM EST Office Visit [facility] [address] [facility] [address] [place] [phone] Marie Castro DO [address] [place] [address] [facility] Start: 07-25-2024 End: 07-25-2024 Nursing evaluation of patient and report 07/25/2024 1:00 PM EST Nurse Visit [facility] [address] [place] [address] Gaye Mata, RN Omnipod 5 upgrade from DASH with Dexcom G6 CGM. Needs carb counting. Coming from [place], [place] with Diabetic [facility] Comment on above: Omnipod 5 upgrade from DASH with Dexcom G6 CGM. Needs carb counting. Coming from [place] with Start: 07-20-2024 End: 07-24-2024 Basic metabolic 1998 panel - Serum or Plasma Basic metabolic panel Lab Routine Chronic systolic CHF (congestive heart failure), NYHA class 2 (CMS/HCC) Expected: 07/20/2024 (Approximate), Expires: 07/24/2024 [facility] Work Phone: Comment on above: Expected: 07/20/2024 (Approximate), Expi res: 07/24/2024 Start: 07-18-2024 Hemoglobin A1c measurement Diabetes: Hemoglobin A1C [facility] Start: 07-17-2024 End: 07-17-2024 [facility] Start: 07-17-2024 Referral to emergency vehicle technician [facility] Start: 07-17-2024 Respiratory pathogens DNA and RNA panel - Nasopharynx by ANASTASIA with non-probe detection [facility] Start: 07-17-2024 Physical therapy procedure [facility] Start: 07-17-2024 Referral to occupational therapist [facility] Start: 07-17-2024 [facility] Start: 07-16-2024 Hospital admission [facility] Start: 07-13-2024 End: 07-13-2024 Patient encounter procedure 07/13/2024 10:45 AM EST Office Visit [facility] [address] [place] [address] Stephanie Sheridan DO [address] [place] [address] [facility] Start: 07-12-2024 Advance Directive Discussion Advance Directive Discussion [facility] Start: 07-03-2024 End: 07-03-2024 Patient encounter procedure 07/03/2024 9:00 AM EST Office [facility] [address] [place] [id number] Beto Russo MD [address] [place] [address] [facility] Start: 06-21-2024 [facility] Start: 06-19-2024 Referral to general surgeon [facility] Start: 06-19-2024 Hospital admission [facility] Start: 06-19-2024 End: 06-19-2024 Patient encounter procedure 06/19/2024 3:00 PM EST Office Visit [facility] [address] [place] [phone] Marie Castro DO [address] [place] [address] [facility] Start: 06-18-2024 End: 06-18-2024 [facility] Start: 06-17-2024 [facility] Start: 06-16-2024 Hospital admission [facility] Start: 06-16-2024 Referral to infectious diseases physician [facility] Start: 06-16-2024 Drainage of Abdomen Subcutaneous Tissue and Fascia, Open Approach Drainage of Abdomen Subcutaneous Tissue and Fascia, Open Approach [facility] Start: 05-25-2024 [facility] Start: 05-25-2024 Hospital admission [facility] Start: 05-24-2024 [facility] Start: 05-24-2024 [facility] Start: 05-24-2024 Insertion of Defibrillator Generator into Chest Subcutaneous Tissue and Fascia, Open Approach Insertion of Defibrillator Generator into Chest Subcutaneous Tissue and Fascia, Open Approach [facility] Start: 05-24-2024 Insertion of Defibrillator Lead into Right Atrium, Percutaneous Approach Insertion of Defibrillator Lead into Right Atrium, Percutaneous Approach [facility] Start: 05-24-2024 Insertion of Defibrillator Lead into Right Ventricle, Percutaneous Approach Insertion of Defibrillator Lead into Right Ventricle, Percutaneous Approach [facility] Start: 02-15-2024 [facility] Start: 02-08-2024 [facility] Start: 02-06-2024 Referral to high school social science teacher [facility] Start: 02-05-2024 Hospital admission [facility] Start: 02-05-2024 CT cervical spine without contrast CT cervical spine wo [facility] Start: 02-05-2024 CT Cervical spine WO contrast [facility] Start: 02-05-2024 CT of head without contrast CT head/brain wo con [facility] Start: 02-05-2024 CT Unspecified body region WO contrast [facility] Start: 02-05-2024 Plain chest X-ray XR chest 1V portable [facility] Start: 02-05-2024 XR Chest Single view [facility] Start: 02-05-2024 Control Bleeding in Gastrointestinal Tract, Via Natural or Artificial Opening Endoscopic Control Bleeding in Gastrointestinal Tract, Via Natural or Artificial Opening Endoscopic [facility] Start: 11-11-2023 [facility] Start: 09-06-2023 [facility] Start: 09-06-2023 Referral to rehabilitation physician [facility] Start: 08-31-2023 Hospital admission [facility] Start: 08-31-2023 Consultation [facility] Start: 08-31-2023 Referral to high school social science teacher [facility] Start: 08-31-2023 Control Bleeding in Gastrointestinal Tract, Via Natural or Artificial Opening Endoscopic Control Bleeding in Gastrointestinal Tract, Via Natural or Artificial Opening Endoscopic [facility] Start: 08-31-2023 Excision of Esophagus, Via Natural or Artificial Opening Endoscopic, Diagnostic Excision of Esophagus, Via Natural or Artificial Opening Endoscopic, Diagnostic [facility] Start: 08-31-2023 Excision of Stomach, Pylorus, Via Natural or Artificial Opening Endoscopic, Diagnostic Excision of Stomach, Pylorus, Via Natural or Artificial Opening Endoscopic, Diagnostic [facility] Start: 08-16-2023 End: 08-16-2024 Basic metabolic 2000 panel - Serum or Plasma Basic Metabolic Panel Lab Routine Cardiomyopathy, ischemic Expected: 08/16/2023 (Approximate), Expires: 08/16/2024 [facility] Work Phone: Comment on above: Expected: 08/16/2023 (Approximate), Expi res: 08/16/2024 Start: 08-16-2023 End: 08-16-2024 Natriuretic peptide B [Mass/volume] in Blood B-Type Natriuretic Peptide Lab Routine Cardiomyopathy, ischemic Orthopnea Expected: 08/16/2023 (Approximate), Expires: 08/16/2024 [facility] Service Area Work Phone: Comment on above: Expected: 08/16/2023 (Approximate), Expi res: 08/16/2024 Start: 07-16-2023 End: 07-16-2023 [facility] Start: 07-13-2023 COVID-19 Vaccine (3 - Moderna series) COVID-19 Vaccine (3 - Moderna series) [facility] Start: 07-12-2023 Advance Directive Discussion Advance Directive Discussion [facility] Start: 06-23-2023 End: 06-23-2023 Patient encounter procedure 06/23/2023 2:00 PM EST Office Visit [facility] [address] [facility] [address] [place], [place] [id number] Sammy Wolff, GRAIN FARMWORKER-INTER COM INSTALLER [address] [facility] [address] [place] [address] [facility] Start: 06-05-2023 Urine screening for protein Diabetes: Urine Protein Screening [facility] Start: 05-07-2023 [facility] Start: 05-04-2023 Administration of prophylactic treatment [facility] Start: 05-03-2023 Hospital admission [facility] Start: 05-03-2023 Referral to clinical stonecutter hand [facility] Start: 05-03-2023 [facility] Start: 05-03-2023 Referral to rehabilitation physician [facility] Start: 05-02-2023 Blood chemistry [facility] Start: 05-02-2023 [facility] Start: 05-01-2023 Blood chemistry [facility] Start: 05-01-2023 [facility] Start: 04-30-2023 Referral to Reinforcing Steel Worker Wire Mesh [facility] Start: 04-30-2023 Blood chemistry [facility] Start: 04-30-2023 End: 04-30-2023 [facility] Start: 04-29-2023 Blood chemistry [facility] Start: 04-29-2023 Lipid panel [facility] Start: 04-29-2023 [facility] Start: 04-28-2023 [facility] Start: 04-28-2023 Hospital admission [facility] Start: 04-28-2023 [facility] Start: 04-28-2023 Hospital admission [facility] Start: 04-28-2023 Consultation [facility] Start: 04-28-2023 Referral to emergency vehicle technician [facility] Start: 04-28-2023 End: 04-28-2023 [facility] Start: 04-28-2023 Fluoroscopy of Left Heart using Low Osmolar Contrast Fluoroscopy of Left Heart using Low Osmolar Contrast [facility] Start: 04-28-2023 Fluoroscopy of Multiple Coronary Arteries using Low Osmolar Contrast Fluoroscopy of Multiple Coronary Arteries using Low Osmolar Contrast [facility] Start: 04-28-2023 Insertion of Intramedullary Internal Fixation Device into Right Upper Femur, Percutaneous Approach Insertion of Intramedullary Internal Fixation Device into Right Upper Femur, Percutaneous Approach [facility] Start: 04-28-2023 Measurement of Cardiac Sampling and Pressure, Left Heart, Percutaneous Approach Measurement of Cardiac Sampling and Pressure, Left Heart, Percutaneous Approach [facility] Start: 04-04-2022 Hemoglobin A1c measurement Diabetes: Hemoglobin A1C [facility] Start: 06-30-2021 Shingles vaccine (2 of 2) Shingles vaccine (2 of 2) [facility] Start: 01-19-2021 COVID-19 Vaccine (3 - Booster for Moderna series) COVID-19 Vaccine (3 - Booster for Moderna series) [facility] Start: 09-14-2020 Meningococcal B Vaccine (3 of 4 - Increased Risk Bexsero 2-dose series) Meningococcal B Vaccine (3 of 4 - Increased Risk Bexsero 2-dose series) [facility] Start: 03-12-2002 Medicare Annual Wellness Visit Medicare Annual Wellness Visit [facility] Start: 1956 Urine screening for protein Diabetes: Urine Protein Screening [facility] Start: 1955 Anxiety Screening Anxiety Screening [facility] Start: 1955 Depression Screening Depression Screening [facility] Start: 1955 Hepatitis B surface antibody level LDL Cholesterol [facility] Start: 1949 Depression Screen Depression Screen [facility] Start: 1947 Diabetic foot examination [facility] Start: 1947 Glaucoma screening [facility] Start: 1947 Hepatitis B screening Urine Albumin:Creatinine Ratio [facility] Start: 1947 Meningococcal B Vaccine (1 of 4 - Increased Risk) Meningococcal B Vaccine (1 of 4 - Increased Risk) [facility] Start: 1939 Meningococcal Vaccine (1 - Risk 2-dose series) Meningococcal Vaccine (1 - Risk 2-dose series) [facility] Start: 06-22-1938 HIB Vaccines (1 of 1 - Risk 1-dose series) HIB Vaccines (1 of 1 - Risk 1-dose series) [facility] Start: 1937 Annual Wellness Visit (AWV) Annual Wellness Visit (AWV) [facility] Start: 1937 Lipid panel Lipid Panel [facility] Start: 1937 Medicare Annual Wellness Visit Medicare Annual Wellness Visit (AWV) [facility] Start: 1937 Screening for osteoporosis Bone Density Scan [facility] AEROBIC CULTURE AEROBIC CULTURE Lab Routine 06/20/2024 10:18 AM [employer] Work Phone: ANAEROBIC CULTURE ANAEROBIC CULT URE Lab Routine 06/20/2024 10:18 AM [employer] Basic Metabolic Pane l w/ Reflex to MG Basic Metabolic Panel w/ Reflex to MG Lab Routine Daily until discontinued starting 01/06/2022, 2 completed [employer] Work Phone: Comment on above: Daily until discontinued starting 2021, 2 completed CBC W Auto Different ial panel - Blood CBC with Auto Differential Lab Routine Daily until discontinued starting 01/03/2022, 5 completed [employer] Phone: Comment on above: Daily until discontinued starting 2021, 5 completed Comprehensive metabo lic 2000 panel - Serum or Plasma [facility] Glucose [Mass/volume ] in Serum or Plasma POCT Glucose Point of Care Testing STAT As Needed until discontinued starting 01/02/2022 [employer] Work Phone: Comment on above: As Needed until discontinued starting Glucose [Mass/volume ] in Serum or Plasma POCT glucose Point of Care Testing Routine Now Then Every 4hr until discontinued starting 01/03/2022 [facility] [employer] Work Phone: Comment on above: Now Then Every 4hr until discontinued st arting 01/03/2022 Glucose [Mass/volume ] in Serum or Plasma GLUCOSE, BLOOD (POC) Lab Routine 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 Data Set] Initiate Oxygen Therapy Protocol Respiratory Care Routine As Needed until discontinued starting 01/02/2022 [email or web address] [employer] Work Phone: Comment on above: As Needed until discontinued starting Patient Education [facility] Work Phone: Patient referral [facility] Work Phone: Phosphate [Mass/volu me] in Serum or Plasma Phosphorus Lab Routine Daily until discontinued starting 01/06/2022, 2 completed [employer] Work Phone: Comment on above: Daily until discontinued starting 2021, 2 completed Spirometry panel Incentive carolyn metry Respiratory Care Routine Every 2hr while awake until discontinued starting 01/03/2022 [facility] [employer] Phone: Comment on above: Every 2hr while awake until discontinued starting 01/03/2022 US Heart Transthoracic [facility] US Heart Transthoracic [facility] XR Cervical spine 3 Views [facility] Immunizations Immunization Date Immunization Notes Care Provider Rosie bowie 04-17-2024 Seasonal trivalent influenza vaccine, adjuvanted, preservative free Yuerong Omid CAMPAIGN CONSULTANT Work Phone: [facility] 04-17-2024 influenza virus vacc ine, unspecified formulation Marie Castro DO Work Phone: [facility] 05-19-2023 Influenza, Seasonal, Quadrivalent, Adjuvanted Yuerong Omid CAMPAIGN CONSULTANT Work Phone: [facility] 05-18-2023 COVID-19 (PFIZER) 12Y and older DO Marie Castro Work Phone: [facility] 05-18-2023 Moderna SARS-CoV-2 Vaccination Yuerong Omid CAMPAIGN CONSULTANT Work Phone: [facility] 05-18-2023 RSV, recombinant, protein subunit RSVpreF, adjuvant reconstitu, 120mcg/0.5mL, PF (Arexvy) Yuerong Omid CAMPAIGN CONSULTANT Work Phone: [facility] 05-18-2023 zoster vaccine recombinant Yuerong Omid CAMPAIGN CONSULTANT Work Phone: [facility] 05-26-2022 COVID-19 mRNA Bivale nt Booster (Pfizer) DO Marie Hurleyjorge Work Phone: [facility] 05-26-2022 Moderna Bivalent Reynoso ster Vaccination Yuerong Omid CAMPAIGN CONSULTANT Work Phone: [facility] 04-29-2022 influenza, high dose seasonal, preservative-free Yuerong Omid CAMPAIGN CONSULTANT Work Phone: [facility] 05-05-2021 zoster vaccine, live Yuerong Omid CAMPAIGN CONSULTANT Work Phone: [facility] 10-22-2021 zoster vaccine recombinant Yuerong Omid CAMPAIGN CONSULTANT Work Phone: [facility] 04-29-2021 influenza, high dose seasonal, preservative-free Yuerong Omid CAMPAIGN CONSULTANT Work Phone: [facility] 08-22-2020 Moderna SARS-CoV-2 Vaccination Yuerong Omid CAMPAIGN CONSULTANT Work Phone: [facility] 07-25-2020 Moderna SARS-CoV-2 Vaccination Yuerong Omid CAMPAIGN CONSULTANT Work Phone: [facility] 04-24-2020 Seasonal trivalent influenza vaccine, adjuvanted, preservative free Yuerong Omid CAMPAIGN CONSULTANT Work Phone: [facility] 12-26-2019 pneumococcal conjuga te vaccine, 13 valent [email or web address] CAMPAIGN CONSULTANT Work Phone: [facility] 09-15-2019 meningococcal B vacc ine, recombinant, OMV, adjuvanted [employer] DO Work Phone: [facility] 09-15-2019 meningococcal polysaccharide (groups A, C, Y and W-135) diphtheria toxoid conjugate vaccine (MCV4P) [employer] DO Work Phone: [facility] 09-15-2019 pneumococcal polysaccharide vaccine, 23 valent [employer] DO Work Phone: [facility] 04-03-2019 Seasonal trivalent influenza vaccine, adjuvanted, preservative free [employer] CAMPAIGN CONSULTANT Work Phone: [facility] 08-18-2018 haemophilus influenz ae type b vaccine, PRP-OMP conjugate [employer] DO Work Phone: [facility] 08-18-2018 meningococcal B vacc ine, recombinant, OMV, adjuvanted [employer] DO Work Phone: [facility] 08-18-2018 pneumococcal conjuga te vaccine, 13 valent [employer] DO Work Phone: [facility] 2018 Seasonal trivalent influenza vaccine, adjuvanted, preservative free [employer] Omid CAMPAIGN CONSULTANT Work Phone: [facility] 03-18-2018 tetanus and diphther ia toxoids, adsorbed, preservative free, for adult use (5 Lf of tetanus toxoid and 2 Lf of diphtheria toxoid) Stalin Omid CAMPAIGN CONSULTANT Work Phone: [facility] 03-03-2017 influenza, high dose seasonal, preservative-free Stalin Omid CAMPAIGN CONSULTANT Work Phone: [facility] 12-25-2015 pneumococcal polysaccharide vaccine, 23 valent Staciaeronasima Omid CAMPAIGN CONSULTANT Work Phone: [facility] 03-18-2015 tetanus toxoid, redu cristina diphtheria toxoid, and acellular pertussis vaccine, adsorbed Stalin Omid CAMPAIGN CONSULTANT Work Phone: [facility] Payers Date Payer Category Payer Self-pay [id number] 2023 Unknown [id number] 2022 Private Health Insurance [facility] [id number] 2002 Medicare [id number]. 1.13.647. 2.7.3.783683.315 1959 Medicare [id number] 1.2.840.064605.1.13.239. 2.7.3.769923.315 1959 Unknown [id number] 1.2.840.071012.1.13.239. 2.7.3.398313.315 1937 Unknown [id number] 2.16.840.1.749046.3.579. 2.175 1937 Unknown [id number] 2.16.840.1.503921.3.579. 2.593 1937 Unknown [id number] 2.16.840.1.600241.3.579. 2.593 1937 Unknown [id number] 2.16.840.1.133868.3.579. 2.593 1937 Unknown [id number] 2.16.840.1.926159.3.579. 2.732 1937 Unknown [id number] 2.16.840.1.804578.3.579. 2.1244 1937 Unknown [id number] 2.16.840.1.271589.3.579. 2.1244 1937 Unknown [id number] 2.16.840.1.638720.3.579. 2.1244 1937 Unknown [id number] 2.16.840.1.811865.3.579. 2.718 1937 Unknown [id number] 2.16.840.1.224843.3.579. 2.718 1937 Unknown [id number] 2.16.840.1.499399.3.579. 2.718 1937 Unknown [id number] 2.16.840.1.014484.3.579. 2.1286 1937 Unknown [id number] 2.16.840.1.403208.3.579. 2.1286 1937 Unknown [id number] 2.16.840.1.387660.3.579. 2.1259 1937 Unknown [id number] 2.16.840.1.880518.3.579. 2.1259 1937 Unknown [id number] 2.16.840.1.987309.3.579. 2.1258 1937 Unknown [id number] 2.16.840.1.775036.3.579. 2.1258 1937 Unknown [id number] 2.16.840.1.944155.3.579. 2.1258 1937 Unknown [id number] 2.16.840.1.919435.3.579. 2.1258 1937 Unknown [id number] 2.16.840.1.715389.3.579. 2.1258 1937 Unknown [id number] 2.16.840.1.591965.3.579. 2.1258 1937 Unknown [id number] 2.16.840.1.241789.3.579. 2.1258 1937 Unknown [id number] 2.16.840.1.332352.3.579. 2.1258 1937 Unknown [id number] 2.16.840.1.722713.3.579. 2.1258 1937 Unknown [id number] 2.16.840.1.975817.3.579. 2.1258 1937 Unknown [id number] 2.16.840.1.508740.3.579. 2.1258 1937 Unknown [id number] 2.16.840.1.622843.3.579. 2.1258 1937 Unknown [id number] 2.16.840.1.246291.3.579. 2.727 Unknown [id number] Unknown [id number] 2.16.840.1.355820.3.579. 2.531 Unknown [id number] 2.16.840.1.103884.3.579. 2.531 Unknown [id number] 2.16.840.1.889543.3.579. 2.531 Unknown [id number] 2.16.840.1.888228.3.579. 2.531 Unknown [id number] 2.16.840.1.391162.3.579. 2.531 Unknown [id number] 2.16.840.1.543832.3.579. 2.531 Unknown [id number] 2.16.840.1.131624.3.579. 2.531 Unknown [id number] 2.16.840.1.054629.3.579. 2.531 Unknown [id number] 2.16.840.1.756034.3.579. 2.531 Unknown [id number] 2.16.840.1.521084.3.579. 2.531 Unknown [id number] 2.16.840.1.505866.3.579. 2.531 Social History Date Type Detail Facility Start: 01-04-2022 End: 07-06-2024 Tobacco smoking status IDIS Ex-smoker [employer] Start: 07-12-1947 End: 08-09-2022 History of tobacco use Cigarette Smoker [employer] Phone: Start: 01-04-2022 End: 01-02-2025 Tobacco use and exposure Smokeless tobacco non-user [employer] Phone: Start: 01-05-2022 Alcohol intake Ex-drinker (finding) [employer] Phone: Start: 1935 Sex Assigned At Not on file B ON [employer] Phone: Start: 12-24-2021 End: 08-16-2023 Exposure to SARS-CoV-2 (event) Not sure [employer] Start: 04-28-2023 End: 02-15-2024 Tobacco smoking status RUST Current some day smoker [facility] Start: 1935 Sex Assigned At Male [facility] Start: 05-25-2023 End: 04-17-2024 Sex Assigned At [facility] [employer] Other Start: 05-25-2023 End: 01-16-2025 Alcohol intake Current drinker of alcohol (finding) [facility] Work Phone: Start: 05-25-2023 End: 04-17-2024 Alcohol intake [facility] Work Phone: Start: 07-12-1947 End: 08-09-2022 Tobacco smoking status NHIS Smoker (finding) [facility] How often to you hav e a [...] Start: 05-25-2024 End: 12-01-2024 Sex Male (finding) [facility] Start: 03-30-2018 National Score (1-10 0), lower number is lower risk 87 [facility] Start: 04-19-2018 Alcohol Comment social use [facility] Start: 07-12-1947 Tobacco smoking stat us IDIS Smokes tobacco daily [facility] Medical Equipment Procedure Code Equipment Code Equipment Origin al Text Equipment Identifier Dates ORIF, hip Orthopaedic bone screw, non-bioabsorbable, non-sterile [id number] FDA Start: 04-30-2023 ORIF, hip Femur nail, sterile [id number] FDA Start: 04-30-2023 ORIF, hip Spiral blade [id number] FDA Start: 04-30-2023 Insertion, pacemaker Endocardial defibrillation lead [id number] FDA Start: 05-24-2024 Insertion, pacemaker Dual-chamber implantable defibrillator [id number] FDA Start: 05-24-2024 Insertion, pacemaker Endocardial/interventr icular septal pacing lead ()[id number] FDA Start: 05-24-2024 CL STENT MARK FR [...] 32 gauge x 5/32 needle Start: 09-05-2023 [id number] Start: 07-15-2023 CL STENT MARK FR ONTIER [...] x 5/32 needle Start: 09-05-2023 CL STENT AMRK FR ONTIER 3.5 X 18 FDA Start: [...] once daily in case of pump failure [id number] Start: 10-04-2024 CL STENT MARK FR ONTIER [...] Facility 07-17-2024 Functional status Patient at Baseline [facility] Work Phone: 07-17-2024 Functional status Patient at Baseline [facility] Work Phone: 06-21-2024 Functional status Patient is Pro gressing Toward Baseline [facility] Work Phone: 06-18-2024 Functional status Patient at Baseline [facility] Work Phone: 05-25-2024 Functional status Patient at Baseline [facility] Work Phone: 02-08-2024 Functional status Patient at Baseline [facility] Work Phone: 09-06-2023 Functional status Patient is Pro gressing Toward Baseline [facility] Work Phone: 07-16-2023 Functional status Patient at Baseline [facility] Work Phone: 05-08-2023 Functional status Patient is Pro gressing Toward Baseline [facility] Work Phone: 05-03-2023 Functional status Patient is Pro gressing Toward Baseline [facility] Work Phone: 04-28-2023 Functional status Patient Not at Baseline [facility] Work Phone: Mental Status Date Assessment Result Facility 07-17-2024 Cognitive function Cognitive Sta tus Patient at Baseline [facility] Work Phone: 07-17-2024 Cognitive function Cognitive Sta tus Patient at Baseline [facility] Work Phone: 06-21-2024 Cognitive function Cognitive Sta tus Patient at Baseline [facility] Work Phone: 06-18-2024 Cognitive function Cognitive Sta tus Patient at Baseline [facility] Work Phone: 05-25-2024 Cognitive function Cognitive Sta tus Patient at Baseline [facility] Work Phone: 02-08-2024 Cognitive function Cognitive Sta tus Patient at Baseline [facility] Work Phone: 09-06-2023 Cognitive function Cognitive Sta tus Patient at Baseline [facility] Work Phone: 07-16-2023 Cognitive function Cognitive Sta tus Patient at Baseline [facility] Work Phone: 05-08-2023 Cognitive function Cognitive Sta tus Patient is Progressing Toward Baseline [facility] Work Phone: 05-03-2023 Cognitive function Cognitive Sta tus Patient is Progressing Toward Baseline [facility] Work Phone: 04-28-2023 Cognitive function Cognitive Sta tus Patient at Baseline [facility] Work Phone: Clinical Notes 01-07-2022 to 04-09-2025 Telephone Encounter - Ayana Zavala APRN.CNP - 02/06/2025 11:55 AM EDTTelephone Encounter - Ayana Zavala APRN.CNP - 02/06/2025 11:55 AM Emmanuel Castro DO - 01/02/2025 11:30 AM EDT Note Date & Type Note Facility 04-09-2025 Note HNO ID: [id number] Author: AYANA ZAVALA APRN.KALANI Service: ? Author Type: Nurse Practitioner Type: Progress Notes Filed: 04/10/2025 08:17 Note Text: Endocrinology Follow Up History of Present Illness Manolo Vickers is a 89 year old male presents today for follow up of DM Type 1. Here with . At [facility] 10/2024, basal rate was reduced overnight. He continues to have very elevated blood sugars while on the pump. He has continued to have issues with obtaining his supplies. He has been off his pump for a few days afternoon as pharmacy could not fill as they keep falling off. He has not taken Lantus and is using Novolog only instead. admits he is not using Novolog consistently. He continues to have longstanding polyuria and polydipsia along with significant fatigue. No nausea or vomiting. 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 Labwork from this AM is pending. recalls he is not bolusing consistently and will ignore his Omnipod alarms at times. Patient recalls being consistent with his Novolog and Lantus injections when he was on these. 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 Per patient, this was done due to [...] OTHER Medication Dosage Pharm Subclass Blood-Glucose Sensor (Onevest G7 SENSOR) delfin Change every 10 days. [...] needed. Agents to treat Hypoglycemia (Hyperglycemics) Insulin [place], Disposable, (BD ULTRA-FINE [place] PEN NEEDLE) 32 gauge x 5/32 Use with insulin once daily in case of pump failure Medical Supplies and DME - Insulin [place]-Syringes and Admin Supplies insulin pump cart,auto,B (more content not included)... [facility] 02-06-2025 Telephone encounter Note Please fax labs to [facility]. See other encounter- Medicare is requiring documentation of his insulin level in order to cover his insulin under Part B. Please notify patient BG needs to be under 225 mg/dL in the AM in order for insulin level to be accurate. [facility] 02-06-2025 Miscellaneous Notes Please fax labs to [place] [facility]. See other encounter- Medicare is requiring documentation of his insulin level in order to cover his insulin under Part B. Please notify patient BG needs to be under 225 mg/dL in the AM in order for insulin level to be accurate. documented in this encounter [facility] 02-05-2025 Telephone encounter Note Medicare requires a C-peptide (insulin level) on record for patient when filling insulin via Part B to use in insulin pump. I do not see one completed. Please have patient obtain fasting lab. His BG needs to be under 225 mg/dL in the morning for this to be an accurate reading. [facility] 02-05-2025 Miscellaneous Notes Medicare requires a C-peptide (insulin level) on record for patient when filling insulin via Part B to use in insulin pump. I do not see one completed. Please have patient obtain fasting lab. His BG needs to be under 225 mg/dL in the morning for this to be an accurate reading. 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 [facility] [place] VASECTOMY 1989 SOCIAL HISTORY: Social History Tobacco [...] Depression - At risk (01/21/2024) Received from [employer] PHQ-2 Total Score: 3 FAMILY HISTORY: Family [...] (PRILOSEC) 20 mg, Daily before breakfast pancrelipase, Leo-Urrv-Ejyh, (Creon) [id number] units capsule TAKE 2 CAPSULES BY MOUTH [...] 2. End-stage heart failure. - Classified as [place] [employer] Class III/IV, indicating severe heart [...] monitoring are necessary. documented in this encounter [facility] 01-02-2025 Instructions Selma Wilcox LPN - 01/02/2025 11:30 AM EDT ?? ATTENTION: [employer] Policy Update - Effective 12/13/24 Beginning today, our nursing team will review [employer] messages twice daily and help determine the [...] a brief office visit, if handled via [employer]. We want you to feel informed and confident when using [employer], so here are a few examples to [...] in your health! documented in this encounter [facility] 12-27-2024 Telephone encounter Note Spoke to patient's . The sensors are ready for merchandise pickup/receiving associate at pharmacy. She will let us know where she would like the refills sent when they are ready, nothing further for now. [facility] 12-27-2024 Miscellaneous Notes Spoke to patient's . The sensors are ready for merchandise pickup/receiving associate at pharmacy. She will let us know where she would like the refills sent when they are ready, nothing further for now. Please call [facility] to inquire what is needed from the office. documented in this encounter [facility] 12-27-2024 Telephone encounter Note Please call [facility] to inquire what is needed from the office. [facility] 12-25-2024 Telephone encounter Note Rx sent however patient obtains typically from [facility], are they still having issues obtaining from there? [facility] 12-25-2024 Miscellaneous Notes Rx sent however patient obtains typically from [facility], are they still having issues obtaining from there? Pt needs refill on sensors. Do not see on current med list. Pt uses [facility] pharmacy in [facility]. Insurance is not going to pay for this until 01/03. Spouse is requesting to speak to a nurse about getting an alternative until then. Please review and advise. Patient has been identified by name and birthdate. Duration of symptoms: N/A Person calling: self Call patient at: on cell [phone] (cell) Was an appointment scheduled: No Closing statement: Results or non-symptom based questions: Thank you for calling [facility], your call will be returned within the next business day. Sharonda Kay documented in this encounter [facility] 12-19-2024 Telephone encounter Note Pt needs refill on sensors. Do not see on current med list. Pt uses [facility] pharmacy in [facility]. Insurance is not going to pay for this until 01/03. Spouse is requesting to speak to a nurse about getting an alternative until then. Please review and advise. Patient has been identified by name and birthdate. Duration of symptoms: N/A Person calling: self Call patient at: on cell [phone] (cell) Was an appointment scheduled: No Closing statement: Results or non-symptom based questions: Thank you for calling [facility], your call will be returned within the next business day. Sharonda Kay [facility] 12-12-2024 Telephone encounter Note Prescription Refill Information [...] Steven Patrick December 12, 2024 3:37 PM [facility] 12-12-2024 Miscellaneous Notes Prescription Refill Information Pt [...] 2024 3:37 PM documented in this encounter [facility] 11-01-2024 Telephone encounter Note Please call pharmacy to inquire which insulin is covered or what they need prescription to say- do they need it sent as brand Novolog? [facility] 11-01-2024 Miscellaneous Notes Please call pharmacy to inquire which insulin is covered or what they need prescription to say- do they need it sent as brand Novolog? documented in this encounter [facility] 10-26-2024 Instructions Ayana Zavala APRN.CNP - 10/26/2024 12:38 PM EDT Plan Basal 12am 0.4 8am 0.5 ICR 12am 15 ISF 12am 60 BG Correction Threshold 12am 150 BG Target 12am 150 Recommend discontinuing Farxiga due to risk of euglycemic diabetic ketoacidosis- discussed with PCP / emergency vehicle technician BACKUP INSULIN PLAN: Only use this if [...] in 8 weeks documented in this encounter [facility] 10-26-2024 Note HNO ID: [id number] Author: AYANA ZAVALA APRN.KALANI Service: ? Author Type: Nurse Practitioner Type: Progress Notes Filed: 10/26/2024 13:11 Note Text: Endocrinology Follow Up History of Present Illness Manolo Vickers is a 89 year old male presents today for follow up of DM Type 1. Here with . 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 Per patient, this was done due to [...] needed. Agents to treat Hypoglycemia (Hyperglycemics) Insulin [place], Disposable, (BD ULTRA-FINE MARICHUY PEN NEEDLE) 32 gauge x 5/32 Use with insulin once daily in case of pump failure Medical Supplies and DME - Insulin [place]-Syringes and Admin Supp (more content not included)... [facility] 10-26-2024 History of Present illness Narrative Endocrinology Follow Up History of Present Illness Manolo Vickers is a 89 year old male presents today for follow up of DM Type 1. Here with . 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 Per patient, this was done due to [...] needed. Agents to treat Hypoglycemia (Hyperglycemics) Insulin [place], Disposable, (BD ULTRA-FINE MAR[place]Y PEN NEEDLE) 32 gauge x 5/32 Use with insulin once daily in case of pump failure Medical Supplies and DME - Insulin [place]-Syringes and Admin Supplies insulin pump cart,auto,BT,G6/7 (OMNIPOD 5 G6-G7 PODS, GEN 5,) crtg Change every 72 hours. Medical Supply, FDB Superset Lactobac no.41/Bifidobact no.7 (PROBIOTIC-10 ORAL) Take by mouth once daily. Intestinal Chayo Modifiers pezzpj-bgwfwegc-wzpiool (CREON) 24,000-76,000 -120,000 unit cpDR Take 2 capsules by mouth three times daily with meals. and 1 with snacks (8/day) Digestive Enzyme Mixtures lutein-zeaxanthin 25-5 mg cap Take by mouth once daily. Alternative Therapy - Antioxidant Omeprazole Magnesium 20 mg tablet Take 20 mg by mouth. Gastric Acid Secretion Reactor Service Operator - Proton Pump Inhibitors (PPIs) PARoxetine (PAXIL) 40 mg tablet Take 40 mg by mouth every morning. Antidepressant - Selective Serotonin Reuptake Inhibitors (SSRIs) tamsulosin (FLOMAX) 0.4 mg Take 0.4 mg by mouth. Prostatic Hypertrophy Agent - ixptm-8-Umbogerchfgt Antagonists Physical Activity: No formal program Diet: [...] Advised to discuss further with PCP / emergency vehicle technician, but from our standpoint he would be [...] Recommend discontinuing Farxiga- discussed with PCP / emergency vehicle technician BACKUP INSULIN PLAN: Only use this if [...] time of the patient encounter Ayana Zavala APRN.INTER COM INSTALLER (Signed electronically to expedite mailing) documented in this encounter [facility] 10-13-2024 Evaluation note Diagnosis Onset Date Resolution Ischemic cardiomyopathy acute A pril 2024 9:10am Type 1 diabetes mellitus acute October 13, 2024 9:10am Acute GI bleeding resolved October 132024 9:10am Coronary artery disease involving circle coronary artery of circle heart wi inactive October 13, 2024 9:10am Hypertension inactive October 13, 025 9:10am S/P PTCA (percutaneous transluminal coronary angioplasty) inactive October 13, 2024 9:10am [facility] Work Phone: 1(561) 348-416704-02-2025 Telephone encounter Note* Telephone Encounter - Gaye Mata RN - 10/11/2024 4:17 PM EDT Patient's sent message patient had received Dexcom G7 CGM sensors from [employer] lastnight. Patient applied Omnipod 6 insulin pump [...] and CGM in the next few days. [facility]04-02-2025 Miscellaneous Notes* Telephone Encounter - Gaye Mata RN - 10/11/2024 4:17 PM EDT Patient's sent message patient had received Dexcom G7 CGM sensors from [employer] lastnight. Patient applied Omnipod 6 insulin pump [...] the next few days. documented in [facility] Miscellaneous Notes* Telephone Encounter - Gaye Mata RN - 10/11/2024 4:00 PM EDT [facility] for pt to return call. Patient appears to now be connected to the sensor. Advised how to treat hypoglycemia. Recommended see educator for appt to review pump and sensor operation documented in [facility]25 Telephone encounter Note * Telephone Encounter - Gaye Mata RN - 10/11/2024 4:00 PM EDT [facility] for pt to return call. Patient appears to now be connected to the sensor. Advised how to treat hypoglycemia. Recommended see educator for appt to review pump and sensor operation [facility]04-02-2025 Telephone encounter Note* Telephone Encounter - Ruchi Rhoades - 10/11/2024 11:37 AM EDT Images from the original note were not included. [facility]04-02-2025 Miscellaneous Notes* Telephone Encounter - Ruchi Rhoades [...] Questions Completed Waiting for determination Ruchi Prior Disability Services Coordinator Endocrinology and Metabolism [place] * Telephone Encounter - Ayana Zavala APRN.CNP - 10/11/2024 8:07 AM EDT Received notice from pharmacy PA is request for Ominpod 5 pods. Please complete. documented in this encounterOhio[facility]04-[facility]-2025 Telephone encounter Note * Telephone Encounter - Ruchi Rhoades - 10/11/2024 11:31 AM EDT Images from the original note were not included. Initiated PA for insulin pump cart,auto,BT,G6/7 (OMNIPOD 5 G6-G7 PODS, GEN 5,) crtg through [employer] Medicare Chart notes attached Questions Completed Waiting for determination Ruchi Prior Disability Services Coordinator Endocrinology and Metabolism [place] [facility]04-02-2025 Telephone encounter Note* Telephone Encounter - Ayana Zavala APRN.CNP - 10/11/2024 8:07 AM EDT Received notice from pharmacy PA is request for Ominpod 5 pods. Please complete. [facility]04-02-2025 Telephone encounter Note* Telephone Encounter - Ayana Zavala APRN.CNP - 10/11/2024 8:06 AM EDT Will send PA request in other encounter to PA team. [facility]04-02-2025 Miscellaneous Notes* Telephone Encounter - Ayana Zavala APRN.CNP - 10/11/2024 8:06 AM EDT Will send PA request in other encounter to PA team. documented in this encounterOhio[facility]04-01-2025 Telephone encounter Note * Telephone Encounter - Erick Peguero LPN - 10/10/2024 3:28 PM EDT Spoke to [facility], he reported that the Dexcom supplies should be delivered today vis [employer]. Tracking nbr [id number]. According to his notes it was out for delivery at 5:48 am 10/10/2024. I attempted to reach patient at both nbrs listed, no answer. VM left with update. I will send a MyChart message as well. [facility]04-01-2025 Miscellaneous Notes* Telephone Encounter - Erick Peguero LPN - 10/10/2024 3:28 PM EDT [facility], he reported that the Dexcom supplies should be delivered today vis [employer]. Tracking nbr [id number]. According to his notes it was out for delivery at 5:48 am 10/10/2024. I attempted to reach patient at both nbrs listed, no answer. ELVER left with update. I will send a MyChart message as well. * Telephone Encounter - [...] office for follow up. documented in this encounterOhio[facility]04-01-2025 Telephone encounter Note * Telephone Encounter - [...] to patient's provider office for follow up. [facility]03-26-2025 Telephone encounter Note* Telephone Encounter - Gaye Mata RN - 10/04/2024 4:38 PM EDT [employer] called stating that he is out of Dexcom G7 CGM sensors and has been having difficulty getting the shipment from [facility], his DME supplier. Patient states he made 3 calls to them this week, one including a crop supervisor at [facility], who promised that the shipment was sent and would be received in a day or two. Advised patient to contact his provider's office to see if they are able to help as they submitted all the original paperwork to [facility] back in August and I am not sure if they are waiting on something from the office. Patient was also told to see if the provider's office had Dexcom G7 sensor samples to provide until his shipment arrives so he does not have to drive out to [facility]. Patient verbalized understanding. [facility]03-26-2025 Miscellaneous Notes* Telephone Encounter - Gaye Mata RN - 10/04/2024 4:38 PM EDT [employer] called stating that he is out of Dexcom G7 CGM sensors and has been having difficulty getting the shipment from [facility] [facility], his DME supplier. Patient states he made 3 calls to them this week, one including a crop supervisor at [facility], who promised that the shipment was sent and would be received in a day or two. Advised patient to contact his provider's office to see if they are able to help as they submitted all the original paperwork to [facility] back in August and I am not sure if they are waiting on something from the office. Patient was also told to see if the provider's office had Dexcom G7 sensor samples to provide until his shipment arrives so he does not have to drive out to [facility]. Patient verbalized understanding. documented in this encounterOhio[facility]03-19-2025 Telephone encounter Note * Telephone Encounter - Gaye Mata RN - 09/27/2024 1:22 PM EDT In error [facility]03-19-2025 Miscellaneous Notes* Telephone Encounter - Gaye Mata RN - 09/27/2024 1:22 PM EDT In error documented in this encounterOhiohealth [facility] Hospital03-18-2025 Telephone encounter Note * Telephone Encounter - [...] already called Report to their ER Agreeable [facility]03-18-2025 Miscellaneous Notes* Telephone Encounter - Yanique Griffin [...] Agreeable * Telephone Encounter - Ayana Zavala APRN.KALANI - 09/26/2024 8:29 AM EDT Provided report to [facility]. * Telephone Encounter - Erick Peguero LPN - 09/26/2024 8:18 AM EDT Left message on machine to call the office. * Telephone Encounter - Ramya Crandall, KARIN - 09/26/2024 8:10 AM EDT Pt identified by name and Pt given message below Stated understanding will take pt to [facility] Advised to f/u with endo upon release [...] in the ER immediately. documented in this encounterOhiohealth [facility] Hospital03-18-2025 Telephone encounter Note * Telephone Encounter - Ayana Zavala APRN.KALANI - 09/26/2024 8:29 AM EDT Provided report to [facility]. [facility]03-18-2025 Telephone encounter Note* Telephone Encounter - Erick Peguero LPN - 09/26/2024 8:18 AM EDT Left message on machine to call the office. [facility]03-18-2025 Telephone encounter Note* Telephone Encounter - Ramya Crandall, KARIN - 09/26/2024 8:10 AM EDT Pt identified by name and Pt given message below Stated understanding will take pt to [facility] Advised to f/u with endo upon release [...] 09-25-2024) Will document this in epic/ basics [facility]03-18-2025 Telephone encounter Note* Telephone Encounter - Erick Peguero LPN - 09/26/2024 7:47 AM EDT Attempted to reach patient at both numbers listed in demo. Left urgent messages on both V M [facility]03-18-2025 Telephone encounter Note* Telephone Encounter - Ayana Zavala APRN.CNP - 09/26/2024 7:39 AM EDT Received page regarding critical lab result of glucose 614 mg/dL. 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 Please call patient and instruct him to be seen in the ER immediately. [facility]03-17-2025 Instructions* Patient Instructions* Ayana Zavala APRN.CNP - [...] me in 4 weeks documented in this encounterOhiohealth Doctors Hospital03-17-2025 NoteHNO ID: [id number] Author: AYANA ZAVALA APRN.CNP Service: ? Author [...] in the meantime, but 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 Per patient, this was done due to [...] by mouth once daily. Intestinal Chayo Modifiers xqpycx-iprdjhrn-gophmvd (CREON) 24,000-76,000 -120,000 unit cpDR Take 2 capsules by mouth three times daily with meals. and 1 with snacks (8/day) Digestive Enzyme Mixtures lutein-zeaxanthin 25-5 mg cap Take by mouth once daily. Alternative Therapy - Antioxidant Omeprazole Magnesium 20 mg tablet Take 20 mg by mouth. Gastric Acid Secretion Reactor Service Operator - Proton Pump Inhibitors (PPIs) PARoxetine (PAXIL) 40 mg tablet Take 40 mg by mouth every morning. Antidepressant - Selective Serotonin Reuptake Inhibitors (SSRIs) tamsulosin (FLOMAX) 0.4 mg Take 0.4 mg by mouth. Prostatic Hypertrophy Agent - bixfi-4-Ularpywkotyg Antagonists Physical Activity: No formal program Diet: CHO Controlled Diet SMBG Frequency of Monitoring: Four times a Day Not connected with pump (more content not included)...[facility] 09-25-2024 History of Present illness Narrative* Ayana Zvaala APRN.INTER COM INSTALLER - 09/25/2024 2:25 PM EDT Images from [...] in the meantime, but 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 Per patient, this was done due to [...] by mouth once daily. Intestinal Chayo Modifiers hesjkp-wrxykqqo-tjhfctx (CREON) 24,000-76,000 -120,000 unit cpDR Take 2 capsules by mouth three times daily with meals. and 1 with snacks (8/day) Digestive Enzyme Mixtures lutein-zeaxanthin 25-5 mg cap Take by mouth once daily. Alternative Therapy - Antioxidant Omeprazole Magnesium 20 mg tablet Take 20 mg by mouth. Gastric Acid Secretion Reactor Service Operator - Proton PumpInhibitors (PPIs) PARoxetine (PAXIL) 40 mg tablet Take 40 mg by mouth every morning. Antidepressant - Selective Serotonin Reuptake Inhibitors (SSRIs) tamsulosin (FLOMAX) 0.4 mg Take 0.4 mg by mouth. Prostatic Hypertrophy Agent - gtfws-0-IiamgauglkvbThhwhvscibi Physical Activity: No formal program Diet: CHO [...] - 1.30 mg/dL 1.31 High [facility]H EGFR-AF AUSTRIAN >=60 mL/min/1.73m 2 >60 [facility] EGFR-NON AF AUSTRIAN >=60 mL/min/1.73m 2 52 Low BUN CREATININE RATIO 17.6 CALCIUM 8.5 - 10.1 mg/dL 9 Resulting Agency [facility] Specimen Collected: 09/13/24 9:23 AM Performed by: [employer] Last Resulted: 09/13/24 10:54 AM Received From: [employer] Result Received: 09/25/24 2:18 PM Impression/Recommendations IMPRESSION [...] LDL , TG LIPID PANEL (EXTERNAL) Order: [id number] Component Ref Range & Units Cholesterol 150 - 200 mg/dL 97 Low Triglycerides 27 - 150 mg/dL 38 HDL Cholesterol >39 mg/dL 50 VLDL 0 - 30 mg/dL 8 LDL (calc) <130 mg/dL 39 Cholesterol:HDL Ratio 1.0 - 5.0 1.9 Resulting Agency [facility] Specimen Collected: 01/22/24 6:06 AM Performed by: [employer] Last Resulted: 01/22/24 1:58 PM Received From: [employer] Result Received: 07/06/24 9:37 AM -- This [...] time of the patient encounter Ayana Zavala APRN.INTER COM INSTALLER (Signed electronically to expedite mailing) documented in this encounterOhio[facility]03-14-2025 Telephone encounter Note * Telephone Encounter - [...] once he wakes up to reviewpump issues. [facility]03-14-2025 Miscellaneous Notes* Telephone Encounter - Gaye Mata [...] up to reviewpump issues. documented in this encounterOhiohealth Doctors Hospital03-14-2025 Telephone encounter Note * Telephone Encounter - [...] to review pump settings and reinforce education. [facility]03-14-2025 Miscellaneous Notes* Telephone Encounter - Gaye Mata [...] settings and reinforce education. documented in this encounterOhiohealth Doctors Hospital02-24-2025 History of Present illness Narrative* Gaye Mata RN - 09/04/2024 1:00 PM EST DIABETES SELF-MANAGEMENT EDUCATION AND SUPPORT FOLLOW-UP VISIT Type of Diabetes: Type 2 Location: [place] Type of visit: In person individual Types [...] Name: Insulet Omnipod 5 System Serial Number: [id number] Sync Date: 09/04/24 Device Time Offset (hh:mm): +00:00 Device Name: Insulet Omnipod Dash System Serial Number: [id number] Sync Date: 03/05/22 Device Time Offset (hh:mm): +00:00 Device Name: Insulet Omnipod Dash System Serial Number: [id number] Sync Date: 11/14/21 Device Time Offset (hh:mm): +00:00 Device Name: Insulet Omnipod DASH Owen Serial Number: Insulet Dash Sync Date: 09/19/20 Device Time Offset (hh:mm): +00:00 Device Name: Insulet Omnipod Dash System Serial Number: [id number] Sync Date: 09/19/20 Device Time Offset (hh:mm): [...] weeks. This is a non-billable encounter through [employer] but will be billed to the following [...] for patient selected goal(s) with dietitian and/or inclusion special educator within 2-4 weeks/months via office visit, [employer] message, email, or phone call. Contactinformation provided to patient for inclusion special educator. Educator to contact patient in 3 [...] vary based on the plan requirements. Call [phone] to schedule a diabetes education follow up visit. Time Spent (Minutes): 120 This visit note will be communicated to the healthcare provider via access to shared medical record. SIGNATURE: Gaye Mata RN PATIENT NAME: Manolo Vickers DATE: September 04, 2024 TIME: 12:45 PM PAGER: documented in this encounterOhiohealth [facility] Hospital02-24-2025 NoteHNO ID: [id number] Author: GAYE MATA RN Service: ? Author Type: Registered Nurse Type: Progress Notes Filed: 09/04/2024 15:22 Note Text: DIABETES SELF-MANAGEMENT EDUCATION AND SUPPORT FOLLOW-UP VISIT Type of Diabetes: Type 2 Location: [place] Type of visit: In person individual Types [...] Name: Insulet Omnipod? 5 System Serial Number: [id number] Sync Date: 09/04/24 Device Time Offset (hh:mm): +00:00 Device Name: Insulet Omnipod Dash? System Serial Number: [id number] Sync Date: 03/05/22 Device Time Offset (hh:mm): +00:00 Device Name: Insulet Omnipod Dash? System Serial Number: [id number] Sync Date: 11/14/21 Device Time Offset (hh:mm): +00:00 Device Name: Insulet Omnipod DASH? Owen Serial Number: Insulet Dash Sync Date: 09/19/20 Device Time Offset (hh:mm): +00:00 Device Name: Carley Caldwellod Dash? System Serial Number: [id number] Sync Date: 09/19/20 Device Time Offset (hh:mm): [...] to hyperglycemia: Yes Patient (more content not included)...[facility]02-20-2025 Telephone encounter Note* Telephone Encounter - Gaye [...] instructions on day of training information to [employer] [facility]02-20-2025 Miscellaneous Notes* Telephone Encounter - Gaye Mata RN - 08/31/2024 11:57 AM EST Spoke with patient's regarding Omnipod 5 insulin pump start with Dexcom G7 on 09/04/24 at 1 pm.Patient is currently using DASH with reader. Advised to make sure patient brings his insulin, all login passwords for Omnipod, Glooko, and Dexcom G7, his smartphone, Sprooki 5 controller phone fully charged and updated if needed so the pump start will go smoothly. requested email resent to her with instructions on day of training information to [employer] documented in this encounterOhiohealth Doctors Hospital02-19-2025 History of Present illness Narrative* Marie Castro, [...] assistance of a healthcare professional from the [facility], who has introduced a new monitor that [...] has beencommunicating with his healthcare team via [employer] and reports no feelings of depression. He [...] care of a diabetic specialist at the [facility] and is managing well without any episodes [...] mild mitral regurgitation, placing him in the [place] [employer] class 1/2. He is currently [...] ran out of his inhaler while in [place] and was unable to refill it at [...] (congestive heart failure), NYHA class 2 (CMS/HCC) 9. Nonrheumatic mitral valve regurgitation 10. Pancreatic insufficiency (CMS/HCC) 60' documented in [facility]Met[facility] [id number] Telephone encounter Note* Telephone Encounter - Lit Goodwin MA - 08/15/2024 11:55 AM EST Form completed, faxed, confirmation received. Sent for scan. [facility]02-04-2025 Miscellaneous Notes* Telephone Encounter - Lit Goodwin MA - 08/15/2024 11:55 AM EST Form completed, faxed, confirmation received. Sent for scan. * Telephone Encounter - Lit Goodwin MA - 08/15/2024 10:23 AM EST Received a fax from [employer] for a physician's order. Placed on [employer]'s desk for signature on form and chart notes. documented in this encounterOhiohealth Doctors Hospital02-04-2025 Telephone encounter Note * Telephone Encounter - Lit Goodwin MA - 08/15/2024 10:23 AM EST Received a fax from [employer] for a physician's order. Placed on [employer]'s desk for signature on form and chart notes. [facility]01-29-2025 Telephone encounter Note* Telephone Encounter - Sheryl Ny MA - 08/09/2024 10:38 AM EST A form has been received from [facility] for LUCA note. Faxed LUCA note 07/06/24 to [phone]. Confirmation received. [facility]01-29-2025 Miscellaneous Notes* Telephone Encounter - Sheryl Ny MA - 08/09/2024 10:38 AM EST A form has been received from [facility] for LUCA note. Faxed LUCA note 07/06/24 to [phone]. Confirmation received. documented in this encounterOhiohealth Doctors Hospital01-14-2025 NoteHNO ID: [id number] Author: GAYE MATA RN Service: ? Author Type: Registered Nurse Type: Progress Notes Filed: 07/25/2024 17:09 Note Text: DIABETES CARE AND EDUCATION VISIT Location: [place] Type of visit: In person individual PATIENT'S [...] - - - DEVICES Device Name: Insulet Manzama? System Serial Number: [id number] Sync Date: 07/06/24 Device Time Offset (hh:mm): [...] basics AND daily use and CGM type: Vascular Closure G7 with reader. Patient understand he will need to download Vascular Closure G7 eliane on his Iphone SE. Patient unable to recall log in for [employer] eliane. Patient downloaded G6 eliane, not G7 eliane. Educator needed to call Vascular Closure for assistance in resetting password as patient [...] terminology: basal, bolus, carb ratio, BG target, pqzdbhh-bv-gnbat/duration, and patient did not bring insulin vials with him so we were unable to start pump today. Patient and leaving for [place] for a month tomorrow and has rescheduled [...] TOPICS: 1. Patient and to return after [place] trip to start Omnipod 5 switch from [...] This visit note tapan (more content not included)...[facility] 07-25-2024 History of Present illness Narrative* Gaye Mata RN - 07/25/2024 1:04 PM EST DIABETES CARE AND EDUCATION VISIT Location: [place] Type of visit: In person individual PATIENT'S [...] Insulet infusion sets changes infusion sets q3 see below for current pump settings Name: [...] - - - DEVICES Device Name: Insulet OmnipOnepager Dash System Serial Number: [id number] Sync Date: 07/06/24 Device Time Offset (hh:mm): [...] basics & daily use and CGM type: Vascular Closure G7 with reader. Patient understand he will need to download [employer]7 eliane on his Iphone SE. Patient unable to recall log in for Vascular Closure eliane. Patient downloaded G6 eliane, not G7 eliane. Educator needed to call Vascular Closure for assistance in resetting password as patient [...] terminology: basal, bolus, carb ratio, BG target, fuxfjob-yv-mvmxe/duration, and patient did not bring insulin vials with him so we were unable to start pump today. Patient and leaving for [place] for a month tomorrow and has rescheduled [...] TOPICS: 1. Patient and to return after [place] trip to start Omnipod 5 switch from [...] 2:52 PM PAGER: n/a documented in this encounterOhiohealth Doctors Hospital01-10-2025 Telephone encounter Note * Telephone Encounter - Gaye Mata RN - 07/21/2024 12:09 PM EST In error - patient does not have MyChart set up, status still PENDING. Patient's sent text with code again to create account [facility]01-10-2025 Miscellaneous Notes* Telephone Encounter - Gaye Mata RN - 07/21/2024 12:09 PM EST In error - patient does not have MyChart set up, status still PENDING. Patient's sent text with code again to create account documented in this encounterOhiohealth Doctors Hospital01-09-2025 History of Present illness Narrative* Yomi Chong NP - 07/20/2024 10:00 AM EST Images from [...] He has a scheduled appointment with his emergency vehicle technician, Dr. Coppola, in the coming weeks. He [...] He is under the care of an music worker, Dr. Awa Zavala, at [facility]. He is recovering well from an I [...] prostatic hyperplasia) COPD (chronic obstructive pulmonary disease) ([facility]) Diabetes mellitus ([facility]) 10/04/2019 Ground glass opacity present on imaging of lung 02/05/2023 Hypertension (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 STOMACH SURGERY 12/2021 Stomach Ulcer Surgery - [facility] [place] VASECTOMY 1989 SOCIAL HISTORY: Social History Tobacco [...] Depression - At risk (01/21/2024) Received from [employer] System PHQ-2 Total Score: 3 FAMILY HISTORY: Family [...] mg, Daily cholecalciferol (Vitamin D-3) 50 MCG (2000 UT) tablet Daily furosemide (LASIX) 10 mg, [...] tablet, Daily nitroglycerin (NITROSTAT) 0.4 mg pancrelipase, Pkz-Gzsb-Qvaq, (Creon) 44142-05120 units capsule TAKE 2 CAPSULES BY MOUTH [...] (congestive heart failure), NYHA class 2 (CMS/HCC) Basic metabolic panel Basic metabolic panel 2. Pancreatic insufficiency (CMS/HCC) 3. History of bleeding peptic ulcer 4. Coronary arteriosclerosis (CMS/HCC) 5. 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 Orthostatic hypotension 7. Bronchitis albuterol HFA (ProAir HFA) 90 mcg/act inhaler Assessment & Plan 1. CAD/CHF He experienced chest pain on July 16, which worsened with deep breaths and heartbeats. A scan ruled out a pulmonary embolism, and heart failure was not confirmed. The pain has since resolved. He was advised to continue monitoring his symptoms and follow up with his emergency vehicle technician in a couple of weeks. Pain is [...] of his abdominal wall. documented in this encounterMetropolitan Saint Louis Psychiatric [id number] Consult [place]He[place] [id number] Cardiology Consult Note Signed Patient: Manolo Vickers MR#: [id number] : 1935 Acct:[id number] Age/Sex: 89 / M Adm Date: 5 Loc: 4N Room: 8P8069-1 Type: ADM INOo Attending Dr: Lisa Hidalgo [...] negative unless noted below or in HPI [facility] Medical History Type 1 diabetes mellitus CAD (coronary artery disease) Former smoker BPH (benign prostatic hyperplasia) Urinary frequency Cardiomyopathy wearing external defib Coronary artery disease involving circle coronary artery of circle heart withoutangina pectoris GI bleeding Dupuytren's contracture [...] days #30 tabs 05/07/23 [Rx Confirmed 07/16/24] kurixg-ujwfzhbd-bcncxoe 24,000-76,000-120,000 unit capsule,delayed rel (Creon) 2cap PO [...] tab PO DAILY 10/26/23 [History Confirmed 07/16/24] elnniq-fisraxbs-qulsvlm 24,000-76,000-120,000 unit capsule,delayed rel (Creon) 1cap PO [...] # (Auto) N/A Lymph # (Auto) N/A Merrick # (Auto) N/A Eos # (Auto) N/A [...] Code(s): I25.10 - Atherosclerotic heart disease of circle coronary artery without angina pectoris (4) S/P [...] H/o PUD, BPH, Anxiety, depression. Current smoker. [facility] 04/30/23 - Two-vessel coronary artery disease- 100% prox LAD occlusion; 80% D1; LCx has 50% prox stenosis with 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 Echo 04/28/23 - EF 40-45%, mild LVH, trace MR and TR. [facility] 07/16/22 - Successful PCI ostial/proximal LAD-diagonal branch; true ASSOCIATE CREATIVE DIRECTOR proximal/mid LAD (attempted wiring with balloon). ECHO in January [address] [facility]: EF 30-35% ECHO 03/09/2024: ECHO which showed [...] call with any questions. Follow up with [facility] Cardiology as scheduled. Documented By: Chuck Velasco MD 01/03 5831 Signed By: 07/17/24 5609 [facility]01-06-2025 History and physical note Author Indra Guillory [facility] Note Date/Time July 17, 2024 1: 48am [facility] [address] [place] [address] Hospitalist H&P Signed Patient: Manolo Vickers MR#: [id number] : 1935 Acct:[id number] Age/Sex: 89 / M Adm Date: 5 Loc: 3T Room: [address] [place] [address] Type: ADM INOo Attending Dr: Indra Guillory [...] that which is noted above in HPI [facility] Medical History Type 1 diabetes mellitus CAD (coronary artery disease) Former smoker BPH (benign prostatic hyperplasia) Urinary frequency Cardiomyopathy wearing external defib Coronary artery disease involving circle coronary artery of circle heart withoutangina pectoris GI bleeding Dupuytren's contracture [...] days #30 tabs 05/07/23 [Rx Confirmed 07/16/24] xtbdeg-zuxrvgel-cpyzmmj 24,000-76,000-120,000 unit capsule,delayed rel (Creon) 2cap PO [...] tab PO DAILY 10/26/23 [History Confirmed 07/16/24] wnsiix-xiitgrfs-rokhled 24,000-76,000-120,000 unit capsule,delayed rel (Creon) 1cap PO [...] % (Auto) 18.9 % (.) 07/16/24 12:30 Merrick % (Auto) 12.8 % (.) 07/16/24 12:30 Eos % (Auto) 2.7 % (.) 07/16/24 12:30 Baso % (Auto) 0.8 % (.) 07/16/24 12:30 Nucleat RBC Rel Count 0.2 /100 WBC (0-0.5) 07/16/24 12:30 Neut # (Auto) 4.7 x10E3/uL (1.8-7.7) 07/16/24 12:30 Lymph # (Auto) 1.4 x10E3/uL (1.00-4.8) 07/16/24 12:30 Merrick # (Auto) 0.9 x10E3/uL (0.0-0.8) H 07/16/24 [...] 2 Documented By: Indra Guillory MD 5 [id number] Signed By: <Electronically signed by Indra Guillory MD> 07/17/24 0148 [facility] Work Phone: 1(740) 923-450301-06-2025 [place] [address] Hospitalist H&P Signed Patient: Manolo Vickers MR#: [id number] : 1935 Acct:[id number] Age/Sex: 89 / M Adm Date: 5 Loc: 3T Room: [address] [place] [address] Type: ADM INOo Attending Dr: Indra Guillory [...] that which is noted above in HPI [facility] Medical History Type 1 diabetes mellitus CAD (coronary artery disease) Former smoker BPH (benign prostatic hyperplasia) Urinary frequency Cardiomyopathy wearing external defib Coronary artery disease involving circle coronary artery of circle heart withoutangina pectoris GI bleeding Dupuytren's contracture [...] days #30 tabs 05/07/23 [Rx Confirmed 07/16/24] fcvfas-jqnrhgpd-ibicimc 24,000-76,000-120,000 unit capsule,delayed rel (Creon) 2cap PO [...] tab PO DAILY 10/26/23 [History Confirmed 07/16/24] fepsmu-mxxwywba-xulmtqw 24,000-76,000-120,000 unit capsule,delayed rel (Creon) 1cap PO [...] % (Auto) 18.9 % (.) 07/16/24 12:30 Merrick % (Auto) 12.8 % (.) 07/16/24 12:30 Eos % (Auto) 2.7 % (.) 07/16/24 12:30 Baso % (Auto) 0.8 % (.) 07/16/24 12:30 Nucleat RBC Rel Count 0.2 /100 WBC (0-0.5) 07/16/24 12:30 Neut # (Auto) 4.7 x10E3/uL (1.8-7.7) 07/16/24 12:30 Lymph # (Auto) 1.4 x10E3/uL (1.00-4.8) 07/16/24 12:30 Merrick # (Auto) 0.9 x10E3/uL (0.0-0.8) H 07/16/24 [...] 2 Documented By: Indra Guillory MD 5 [id number] Signed By: 07/17/24 0148 [facility]01-05-2025 Evaluation note* Diagnosis Onset Date Resolution Status Admit Date CAD (coronary artery disease) acute July 16, 2024 6:08pm Ischemic cardiomyopathy acute J anuary 2024 6:08pm S/P ICD (internal cardiac defibrillator) procedure acute July 16, 2024 6:08pm Type 1 diabetes mellitus acute July 16, 2024 6:08pm Acute exacerbation of CHF (congestive heart failure) resolved Jan2024 6:08pm COPD with acute exacerbation resolve d July 16, 2024 6:08pm Pleuritic chest pain resolved Zander aguiary 2024 6:08pm Ischemic cardiomyopathy acute F ebruary 2024 9:56am Type 1 diabetes mellitus acute August 31, 2024 9:56am Acute GI bleeding resolved 2024 9:56am Coronary artery disease involving circle coronary artery of circle heart wi inactive 2024 9:56am Hypertension inactive August 9:56am S/P PTCA (percutaneous transluminal coronary angioplasty) inactive August 31, 025 9:56am Ischemic cardiomyopathy acute A pril 2024 9:10am Type 1 diabetes mellitus acute October 13, 2024 9:10am Acute GI bleeding resolved October 132024 9:10am Coronary artery disease involving circle coronary artery of circle heart wi inactive October 13, 2024 9:10am Hypertension inactive October 13, 025 9:10am S/P PTCA (percutaneous transluminal coronary angioplasty) inactive October 13, 2024 9:10am [facility] Work Phone: 1(730) 836-290001-05-2025 Radiology Diagnostic study [facility] [place] [address] [place] [address] CT Scan Report Signed Patient: Manolo Vickers MR#: [id number] : 1935 Acct:[id number] Age/Sex: 89 / M ADM Date: 5 Loc: ER Room: Type: [facility] ER Attending Dr: Copies to: Bertin [...] suspicious for congestive heartfailure. Impression dictated by: Fiedncio Valentin M.D.07/16/2024 4:48 PM Dictation Location: [place] [address] Transcribed By: [facility] 07/16/24 1648 Dictated By: Fidencio Valentin II, MD 07/16/24 1636 Signed By: 07/16/24 1648 [facility] Work Phone: 1(469) 977-641501-02-2025 Telephone encounter Note* Telephone Encounter - Gaye Mata RN - 07/13/2024 4:14 PM EST In error [facility]01-02-2025 Miscellaneous Notes* Telephone Encounter - Gaye Mata RN - 07/13/2024 4:14 PM EST In error documented in this encounterOhiohealth Doctors Hospital01-02-2025 Telephone encounter Note * Telephone Encounter - Gaye Mata RN - 07/13/2024 4:09 PM EST Called and spoke with patient and to schedule Omnipod DASH to Omnipod 5 pump upgrade. Patient states he has the new pods and is wearing the Dexcom G6 CGM. Patient was scheduled for carb counting/insulin pump training for 07/25/24 at 1-3 pm at [facility]. Location. Patient's Mychart status is PENDING, invite resent via text and to create account. Email sent to [employer] with clinic address, time, date, and what to bring day of training. [facility]01-02-2025 Miscellaneous Notes* Telephone Encounter - Gaye Mata RN - 07/13/2024 4:09 PM EST Called and spoke with patient and to schedule Omnipod DASH to Omnipod 5 pump upgrade. Patient states he has the new pods and is wearing the Dexcom G6 CGM. Patient was scheduled for carb counting/insulin pump training for 07/25/24 at 1-3 pm at [facility]. Location. Patient's Mychart status is PENDING, invite resent via text and to create account. Email sent to [employer] with clinic address, time, date, and what to bring day of training. documented in this encounterOhiohealth Doctors Hospital01-02-2025 History of Present illness Narrative* Stephanie Sheridan, - 07/13/2024 10:45 AM EST Images from the original note were not included. Manolo Vickers is a 89 y.o. male presents for 3rd pow I&D Lt. abd. wall abscess HPI: HPI Giovani is 3 weeks post-op from I&D of abdominal wall abscess, he is doing well, no issues OBJECTIVE: Physical Exam Left lower abdominal incision is healed ASSESSMENT AND PLAN: Assessment/Plan Problem List Items Addressed This Visit Abdominal wall abscess - Primary The wound is healed, no further treatment needed. I'll discharge him and see him PRN documented in this encounterMetropolitan Saint Louis Psychiatric CenterTutnrltmtz38-59-7194 Miscellaneous Notes* Telephone Encounter - Ayana Zavala [...] training. I reached out to our lead custodian and am waiting to hear back, but hopefully can get him set up for training in the next two weeks. documented in this encounterOhiohealth Doctors Hospital12-26-2024 Telephone encounter Note * Telephone Encounter - [...] training. I reached out to our lead custodian and am waiting to hear back, but hopefully can get him set up for training in the next two weeks. [facility]12-26-2024 Note* Addendum Note - Ayana Zavala APRN.CNP - 07/06/2024 1:16 PM ESTAddended by: AYANA ZAVALA on: 07/06/2024 01:16 PM Modules accepted: Orders [facility]12-26-2024 Miscellaneous Notes* Addendum Note - Ayana Zavala APRN.CNP - 07/06/2024 1:16 PM ESTAddended by: AYANA ZAVALA on: 07/06/2024 01:16 PM Modules accepted: Orders documented in this encounterOhiohealth Doctors Hospital12-26-2024 Instructions* Patient Instructions* Ayana Zavala APRN.CNP - [...] 1 ounce protein) 150 calories or less [place] (1 slice bread, 1-2 slices turkey or [...] high in calories) 1 small granola bar ([employer]ats makes smaller granola bar or Special K bar), 10 nuts (try using the 100 calorie snack nut packs to limit the portion) Protein Cereal Bar (such as a [employer] Protein Bar) Low Calorie Protein Shake (EAS Advantage Carb Control), 1 small apple, orange, peach, pear (one that you can tuck in your palm) Danish Yogurt (has 20 grams of carb, 2 ounces of lean protein) or 6 ounce light yogurt 1/3 cup hummus with celery sticks and baby carrots Low Carb Light Wrap (1-2 slices lean meat), lettuce, tomato, 1 tsp light British dressing (There are many options which are both high in fiber and low in calories--100 calories or less per wrap) documented in this encounterOhiohealth Doctors Hospital12-26-2024 History of Present illness Narrative* Ayana Zavala APRN.KALANI - 07/06/2024 11:00 AM EST Images from the original note were not included. Endocrinology Initial Diabetes Assessment aMnolo Vickers is here for a consultation regarding: DM Type 2 My final recommendations will be communicated back to the requesting physician by way of shared Medical record or letter to requesting physician via US mail. PCP is DO Marie Rodriguez ([place]) [address] [place] [address] History of Present Illness Manolo Vickesr is a 89 year old male presents today for evaluation of DM Type 1. Here with and son. 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 Per patient, this was done due to [...] (PROBIOTIC-10 ORAL) Take by mouth once daily. frtyql-mbhjnbjy-ygdlhao (CREON) 24,000-76,000 -120,000 unit cpDR Take 2 capsules by mouth three times daily with meals. and 1 with snacks (8/day) Digestive Enzyme Mixtures lutein-zeaxanthin 25-5 mg cap Take by mouth once daily. Alternative Therapy - Antioxidant Omeprazole Magnesium 20 mg tablet Take 20 mg by mouth. Gastric Acid Secretion Reactor Service Operator - Proton PumpInhibitors (PPIs) PARoxetine (PAXIL) 40 mg tablet Take 40 mg by mouth every morning. Antidepressant - Selective Serotonin Reuptake Inhibitors (SSRIs) tamsulosin (FLOMAX) 0.4 mg Take 0.4 mg by mouth. Prostatic Hypertrophy Agent - cawdm-6-WfoosiuopnrgBgnhlcrozaf Physical Activity: No formal program Diet: CHO Controlled Diet SMBG Frequency of Monitoring: Four times a Day Summary of Personal CGM Findings: Dates worn: 06/22/24-07/05/24 CGM Type: [employer] 1- CGM recording is adequate for interpretation. [...] ains abnormal data COMPREHENSIVE METABOLIC PANEL Order: [id number] Component Ref Range & Units 5 mo [...] does not use a race coefficient. Resulting [facility] MAIN LAB Specimen Collected: 01/24/24 6:05 AM Performed by: LEROY Last Resulted: 01/24/24 7:22 AM Received From: [employer] Result Received: 07/06/24 9:37 AM Impression/Recommendations IMPRESSION Manolo Vickers is a 89 [...] LDL , TG LIPID PANEL (EXTERNAL) Order: [id number] Component Ref Range & Units 5 mo ago Cholesterol 150 - 200 mg/dL 97 Low Triglycerides 27 - 150 mg/dL 38 HDL Cholesterol >39 mg/dL 50 VLDL 0 - 30 mg/dL 8 LDL (calc) <130 mg/dL 39 Cholesterol:HDL Ratio 1.0 - 5.0 1.9 Resulting Agency [facility] Specimen Collected: 01/22/24 6:06 AM Performed by: LEROY Last Resulted: 01/22/24 1:58 PM Received From: [employer] Result Received: 07/06/24 9:37 AM -- This [...] which included preparing to see the patient, zcmp-lh-ctvt patient care, completing clinical documentation, counseling and educating the patient/family/caregiver, ordering medications, tests, or procedures, and communicating results to the mary ent/family/caregiver. Ayana Zavala APRN.KALANI (Signed electronically to expedite mailing) documented in this encounterOhiohealth Doctors Hospital12-26-2024 NoteHNO ID: [id number] Author: AYANA ZAVALA APRN.KALANI Service: ? Author Type: Nurse Practitioner Type: Progress Notes Filed: 07/06/2024 12:36 Note Text: Endocrinology Initial Diabetes Assessment Manolo Vickers is here for a consultation regarding: DM Type 2 My final recommendations will be communicated back to the requesting physician by way of shared Medical record or letter to requesting physician via US mail. PCP is DO Marie Rodriguez ([facility]) [address] [facility] [address] [place] [address] History of Present Illness Manolo Vickers is a 89 year old male presents today for evaluation of DM Type 1. Here with and son. 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 Per patient, this was done due to [...] (PROBIOTIC-10 ORAL) Take by mouth once daily. fophoq-ejobovgq-jznjdcf (CREON) 24,000-76,000 -120,000 unit cpDR Take 2 capsules by mouth three times daily with meals. and 1 with snacks (8/day) Digestive Enzyme Mixtures lutein-zeaxanthin 25-5 mg cap Take by mouth once daily. Alternative Therapy - Antioxidant Omeprazole Magnesium 20 mg tablet Take 20 mg by mouth. Gastric Acid Secretion Reactor Service Operator - Proton Pump Inhibitors (PPIs) PARoxetine (PAXIL) 40 mg tablet Take 40 mg by mouth every morning. Antidepressant - Selective Serotonin Reuptake Inhibitors (SSRIs) tamsulosin (FLOMAX) 0.4 mg Take 0.4 mg by mouth. Prostatic Hypertrophy Agent - nwrdr-7-Zixyjoukacwi Antagonists Physical Activity: No formal program Diet: [...] meals *Nocturnal hypoglycemia n (more content not included)...[facility]12-23-2024 History of Present illness Narrative* Beto Oh [...] Sheridan in 1-2 weeks. documented in this encounterMetropolitan Saint Louis Psychiatric [id number] History of Present illness Narrative* Marie Castro, - 06/19/2024 3:00 PM EST Images from [...] 06/23/2018 Added automatically from request for surgery [id number] Left ventricular dysfunction Lumbar spondylosis OA (osteoarthritis) Pancreatitis Hospitalized Rotator cuff tendonitis SURGICAL HISTORY: Past Surgical History: Procedure Laterality Date APPENDECTOMY 1948 CERVICAL DISCECTOMY [address] ANGIOGRAM HEART CORONARY 01/21/2024 CT ANGIOGRAM TAVR 01/21/2024 FINE NEEDLE ASPIRATION 04/2018 HEART CATH 04/2023 heart cath HIP SURGERY Right 04/2023 right hip surgery OTHER SURGICAL HISTORY 04/2024 ICD placement PARTIAL HIP ARTHROPLASTY Right 04/12/2023 [place] TONSILLECTOMY & ADENOIDECTOMY <AGE 14 SPLENECTOMY, 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 [facility] [place] VASECTOMY 1989 SOCIAL HISTORY: Social History Tobacco [...] Depression - At risk (01/21/2024) Received from [employer] PHQ-2 Total Score: 3 FAMILY HISTORY: Family [...] mg, 2 times daily before meals pancrelipase, Vfs-Qlcx-Jocp, (Creon) 32518-44240 units capsule TAKE 2 CAPSULES BY MOUTH [...] . Reviewed recent hospitalization documented in this encounterMetropolitan Saint Louis Psychiatric [id number] Evaluation note* Diagnosis Onset Date Resolution Status Admit Date Iron deficiency acute June 16, 2024 4:58pm Ischemic cardiomyopathy acute D ec2023 4:58pm S/P ICD (internal cardiac defibrillator) procedure [...] exacerbation of CHF (congestive heart failure) resolved Janua ry 2024 6:08pm COPD with acute exacerbation resolve d July 16, 2024 6:08pm Pleuritic chest pain resolved Zander mcbride 2024 6:08pm [facility] Work Phone: 1(560) 962-913812-06-2024 Evaluation note* Diagnosis Onset Date Resolution Status Admit Date Iron deficiency acute June 16, 2024 4:58pm Ischemic cardiomyopathy acute D ec2023 4:58pm S/P ICD (internal cardiac defibrillator) procedure acute Decembe r 2023 4:58pm Sinus bradycardia acute Decembe r 2023 4:58pm Abdominal abscess resolved Decembe r 2023 4:58pm Abdominal wall abscess resolved De 2023 4:58pm Type 1 diabetes mellitus acute June 19, 2024 6:26pm Abdominal abscess resolved Decembe r 2023 6:26pm Abdominal wall abscess resolved 2023 6:26pm CAD (coronary artery disease) acute [...] resolved 2024 9:56am Coronary artery disease involving circle coronary artery of circle heart wi inactive 2024 9:56am Hypertension inactive August 9:56am S/P PTCA (percutaneous transluminal coronary angioplasty) inactive August 31, 9:56am [facility] Work Phone: 1(967) 974-268111-19-2024 History of Present illness Narrative* Marie Castro, DO - 05/30/2024 2:00 PM EST Images from the original note were not included. Manolo Vickers is a 89 y.o. male presents with chief complaint of Hospital Follow-up HPI: HPI History of Present Illness The patient presents for evaluation of multiple medical concerns. He is managing his insulin pump independently, with an upcoming appointment with his music worker on 07/06/2024. His blood sugar levels have [...] Flowsheet Row Patient Outreach from 05/29/2024 in [facility] with Alejandrina Santamaria LPN Hospital Information ED, Hospital or Care Home Facility Discharge? Hospital Patient has been contacted within two business days of discharge Yes Diagnosis ICD placement Discharge Date 05/25/24 Discharged To: Home Setting Discharge Hospital [facility] Engagement Call Start Time 1019 Admission Date [...] prostatic hyperplasia) COPD (chronic obstructive pulmonary disease) ([facility]) Diabetes mellitus ([facility]) 10/04/2019 Ground glass opacity present on imaging of lung 02/05/2023 Hypertension ([facility]) ICD (implantable cardioverter-defibrillator) in place IPMN (intraductal papillary mucinous neoplasm) 06/23/2018 Added automatically from request for surgery [id number] Left ventricular dysfunction Lumbar spondylosis OA (osteoarthritis) Pancreatitis Hospitalized Rotator cuff tendonitis SURGICAL HISTORY: Past Surgical History: Procedure Laterality Date APPENDECTOMY 194 CERVICAL DISCECTOMY [address] ANGIOGRAM HEART CORONARY 01/21/2024 CT ANGIOGRAM TAVR 01/21/2024 FINE NEEDLE ASPIRATION 04/2018 HEART CATH 04/2023 heart cath HIP SURGERY Right 04/2023 right hip surgery PARTIAL HIP ARTHROPLASTY Right 04/12/2023 TN TONSILLECTOMY & ADENOIDECTOMY <AGE 14 SPLENECTOMY, 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 [facility] [place] VASECTOMY 1989 SOCIAL HISTORY: Social History Tobacco [...] Depression - At risk (01/21/2024) Received from [employer] PHQ-2 Total Score: 3 FAMILY HISTORY: Family History Problem Relation Name Age of Onset Stroke Mother Ana No Known Problems Father at age 82 Leukemia Sister aCrol at age 33 from leukemia Cancer Sister [...] mg, 2 times daily before meals pancrelipase, Epj-Dwqp-Fbkm, (Creon) 76694-53510 units capsule TAKE 2 CAPSULES BY MOUTH [...] next month until his appointment with the music worker on July 06, 2024. Endo apt at [...] assistance of MARYANN Hedrick. documented in this encounterMetropolitan Saint Louis Psychiatric [id number] [place] [address] Discharge Summary Signed Patient: Manolo Vickers MR#: [id number] : 1935 Acct:[id number] Age/Sex: 89 / M Adm Date: 4 Loc: Room: [address] [place] [address]: Abdulaziz Root MD Copies to: [...] DM s/p pancreatectomy, BPH who initially presented [facility] in Apr 2023 following a mechanical fall [...] for discharge and will follow-up with his emergency vehicle technician as well as electrophysiology in the pacemaker [...] on June 01, 2024 at 1:00pm at [facility] - Device check: Will [...] Sodium 138, Potassium 4.0, Chloride 103, Carbon Ghxiblj93.5, Anion Gap 11.5, BUN 19, Creatinine 0.75, [...] 05/12 11/02 1135 Signed By: 05/25/24 1139 [facility]11-14-2024 [place] [address] Cardiology Progress Note Signed Patient: Manolo Vickers MR#: [id number] : 1935 Acct:[id number] Age/Sex: 89 / M Adm Date: 4 Loc: Room: [address] [place] [address] Type: ADM IN Attending Dr: Abdulaziz Root [...] 05/12 11/02 1035 Signed By: 05/25/24 1041 [facility]11-13-2024 Discharge summary Author Chuck Velasco [facility] Note Date/Time May 25, 2024 11:39am [facility] [address] [place] [address] Discharge Summary Signed Patient: Manolo Vickers MR#: [id number] : 1935 Acct:[id number] Age/Sex: 89 / M Adm Date: 4 Loc: Room: [address] [place] [address]: Abdulaziz Root MD Copies to: [...] DM s/p pancreatectomy, BPH [facility] a [facility] [...] for discharge and will follow-up with his emergency vehicle technician as well as electrophysiology in the pacemaker [...] on June 01, 2024 at 1:00pm at [facility] - Device check: Will [...] L*, POC Glucose Comment Documented By: Chuck Vealsco MD 05/12 11/02 113 Signed By: <Electronically signed by Chuck Velasco MD> 05/25/24 1139 [facility] Work Phone: 1(441) 845-706510-16-2024 Evaluation note* Author Anat Perez [facility] Authored April 26, 2024 3 :55pm # CAD s/p PCI in Jul 2023. 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 Current smoker. [facility] 04/30/23 - Two-vessel coronary artery disease- 100% prox LAD occlusion; 80% D1; LCx has 50% prox stenosis with 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 Echo 04/28/23 - EF 40-45%, mild LVH, trace MR and TR. [facility] 07/16/22 - Successful PCI ostial/proximal LAD-diagonal branch; true ASSOCIATE CREATIVE DIRECTOR proximal/mid LAD (attempted wiring with balloon). EKG 09/07/23 - sinus peace 56 bpm, anterolateral TWI. EKG 09/08/23 - sinus peace 58 bpm, anterolateral and inferior TWI. ECHO in January [address] [facility]: EF 30-35% ECHO 03/09/2024: ECHO which showed [...] up in 2 months in HF clinic. [facility] Work Phone: 1(719) 668-337010-16-2024 Evaluation note* Author Anat Perez [facility] Authored April 26, 2024 2 :55pm # CAD s/p PCI in Jul 2023. 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 Current smoker. [facility] 04/30/23 - Two-vessel coronary artery disease- 100% prox LAD occlusion; 80% D1; LCx has 50% prox stenosis with 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 Echo 04/28/23 - EF 40-45%, mild LVH, trace MR and TR. [facility] 07/16/22 - Successful PCI ostial/proximal LAD-diagonal branch; true ASSOCIATE CREATIVE DIRECTOR proximal/mid LAD (attempted wiring with balloon). EKG 09/07/23 - sinus peace 56 bpm, anterolateral TWI. EKG 09/08/23 - sinus peace 58 bpm, anterolateral and inferior TWI. ECHO in January [address] [facility]: EF 30-35% ECHO 03/09/2024: ECHO which showed [...] up in 2 months in HF clinic. [facility] Work Phone: [phone] 173-455510-16-2024 Chief complaint+Reason for visit Narrative * Chief [...] Type 1 diabetes mellitus July 16 6:08pm [facility] Work Phone: [phone]) 668-403710-16-2024 Chief complaint+Reason for visit Narrative * Chief [...] Type 1 diabetes mellitus July 16 6:08pm [facility] Work Phone: 1(240) 178-739810-14-2024 History of Present illness Narrative* Agnes KayJACINTA - 04/24/2024 4:00 PM EDT Images from [...] 06/23/2018 Added automatically from request for surgery [id number] Left ventricular dysfunction Lumbar spondylosis OA (osteoarthritis) Pancreatitis Hospitalized Rotator cuff tendonitis SURGICAL HISTORY: Past Surgical History: Procedure Laterality Date APPENDECTOMY 194 CERVICAL DISCECTOMY [address] ANGIOGRAM HEART CORONARY 01/21/2024 CT ANGIOGRAM TAVR 01/21/2024 FINE NEEDLE ASPIRATION 04/2018 HEART CATH 04/2023 heart cath HIP SURGERY Right 04/2023 right hip surgery PARTIAL HIP ARTHROPLASTY Right 04/12/2023 TN TONSILLECTOMY & ADENOIDECTOMY <AGE 14 SPLENECTOMY, 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 VASECTOMY 1989 SOCIAL HISTORY: Social History Tobacco [...] Depression - At risk (01/21/2024) Received from [employer] [facility] PHQ-2 Total Score: 3 FAMILY HISTORY: Family [...] meals, Use as instructed Insulin Disposable Pump (K1 Speedipod DASH PDM, Gen 4,) kit Basal: 12A [...] mg, 2 times daily before meals pancrelipase, Ixh-Owcj-Dpcv, (Creon) 29836-84393 units capsule TAKE 2 CAPSULES BY MOUTH [...] ASSESSMENT AND PLAN: Assessment & Plan * Stalin Omid, CAMPAIGN CONSULTANT - 04/24/2024 4:00 PM EDT Images from [...] He has been in contact with his high school social science teacher, but has notreceived any further communication. He [...] present on imaging of lung 02/05/2023 Hypertension ([facility]) IPMN (intraductal papillary mucinous neoplasm) 06/23/2018 Added automatically from request for surgery [id number] Left ventricular dysfunction Lumbar spondylosis OA (osteoarthritis) Pancreatitis Hospitalized Rotator cuff tendonitis SURGICAL HISTORY: Past Surgical History: Procedure Laterality Date APPENDECTOMY 1948 CERVICAL DISCECTOMY [address] ANGIOGRAM HEART CORONARY 01/21/2024 CT ANGIOGRAM TAVR 01/21/2024 FINE NEEDLE ASPIRATION 04/2018 HEART CATH 04/2023 heart cath HIP SURGERY Right 04/2023 right hip surgery PARTIAL HIP ARTHROPLASTY Right 04/12/2023 TN TONSILLECTOMY & ADENOIDECTOMY <AGE 14 SPLENECTOMY, 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 VASECTOMY 1989 SOCIAL HISTORY: Social History Tobacco [...] Depression - At risk (01/21/2024) Received from [employer] PHQ-2 Total Score: 3 FAMILY HISTORY: Family [...] mg, 2 times daily before meals pancrelipase, Aaa-Rjeq-Cwta, (Creon) 13173-29668 units capsule TAKE 2 CAPSULES BY MOUTH [...] Gastrointestinal Ulcer. He had an appointment with [facility] on 04/05/2024. There was a discussion about scheduling an EGD,but it has not been scheduled yet. Dr. Castro wrote a letter to the GI office to ensure the EGD isscheduled. FABIEN Pinto, will assist in communicating with the [facility] office to schedule the EGD. 3. Heart [...] blood sugar levels. A referral to an music worker, Dr. Liyah Yeung, has been made to [...] for follow-up. Diagnosis Plan 1. Pancreatic insufficiency ([facility]/HCC) Ambulatory referral to Endocrinology 2. Coronary arteriosclerosis ([facility]) metoprolol succinate XL (Toprol-XL) 25 MG 24 hr tablet 3. 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([facility]) Ambulatory referral to Endocrinology 4. 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) Ambulatory referral to Endocrinology Patient is here for follow up of chronic conditions. I am following Dr Castro's established plan of care for these issues. Dr Castro is in the office suite today and is supervising patient care. documented in this encounterMetropolitan Saint Louis Psychiatric [id number] History of Present illness Narrative* Marie Castro, DO - 04/17/2024 10:30 AM EDT Images from [...] was black, leading to his transfer to [facility]. He had an ulnar fracture and [...] 06/23/2018 Added automatically from request for surgery [id number] Left ventricular dysfunction Lumbar spondylosis OA (osteoarthritis) Pancreatitis Hospitalized Rotator cuff tendonitis SURGICAL HISTORY: Past Surgical History: Procedure Laterality Date APPENDECTOMY 1948 CERVICAL DISCECTOMY [address] ANGIOGRAM HEART CORONARY 01/21/2024 CT ANGIOGRAM TAVR 01/21/2024 FINE NEEDLE ASPIRATION 04/2018 HEART CATH 04/2023 heart cath HIP SURGERY Right 04/2023 right hip surgery PARTIAL HIP ARTHROPLASTY Right 04/12/2023 TN TONSILLECTOMY & ADENOIDECTOMY <AGE 14 SPLENECTOMY, 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 STOMACH SURGERY 12/2021 Stomach Ulcer Surgery - [facility] [place] VASECTOMY 1989 SOCIAL HISTORY: Social History Tobacco [...] Not at risk (04/05/2024) Received from [facility] PHQ-2 Patient Health Questionnaire-2 Score: 0 Recent Concern: Depression - At risk (01/21/2024) Received from [employer] PHQ-2 Total Score: 3 FAMILY HISTORY: Family [...] Sublingual NovoLOG FLEXPEN 100 UNIT/ML pen pancrelipase, Onv-Fgmn-Jlww, (Creon) 25591-28771 units capsule TAKE 2 CAPSULES BY MOUTH [...] mellitus with hyperosmolarity without nonketotic hyperglycemic hyperosmolar coma([facility]) POCT glycosylated hemoglobin (Hb A1C) docked device 3. Generalized anxiety disorder ([facility]) PARoxetine (Paxil) 40 MG tablet 4. Need for immunization against influenza Flu vaccine, trivalent, adjuvanted, preservative free 5. Acquired total absence of pancreas 6. Benign prostatic hyperplasia with urinary frequency 7. 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) 8. 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 H pylori ulcer see note to GI 10. 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) discussed absolute need to have this under control. I recommended referral to specialty clinic for DM/pancreatectomy 11. Insulin pump in place 12. Pancreatic insufficiency ([facility]) 13. Duodenal ulcer see letter to GI cont PPI stop carafate - out of concern for binding meds 14. Medicare annual wellness visit, subsequent 15. ACP (advance care planning) 16. Bradycardia on low dose BB no changes for now 17. Orthostatic hypotension all BP meds stopped except for BB 18. Acute on chronic systolic congestive heart failure ([facility]) NYHA 3 Stgae D educated on importance [...] A note will be sent to the high school social science teacher to discuss the possibility of using a [...] Wednesday for follow-up. 90+' documented in this encounterMetropolitan Saint Louis Psychiatric [id number] Note Attestation signed by Patrick Beard MD at 04/14/2024 12:12 PM I saw and evaluated the patient. I reviewed the resident's/fellow's note and agree with the findings and plan documents in the resident's/fellow's note [facility] Gastroenterology New Patient Visit - History [...] duodenal jejunostomy and splenectomy in 2019 at [facility] in [place]. Patient was referred for the gastroenterology clinic to be established as a new patient regarding his history of peptic ulcer disease with a recent EGD finding in [facility] in February 04, 2024 after he [...] follow-up scheduled. PREVIOUS LABS/IMAGING/ENDOSCOPY: EGD 02/05/2024 in [facility]: Showing gastritis with anastomosis ulcer with visible blood vessel the duodenum. 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) Diabetes mellitus type II, non insulin dependent (CMS/HCC) Acquired total absence of pancreas Pancreatic insufficiency 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 (CMS/HCC) Type 1 diabetes mellitus (CMS/HCC) Diabetes mellitus (CMS/HCC) Acute GI bleeding Anemia of chronic disease [...] Essential hypertension Fracture of cervical spinous process (CMS/HCC) Fractured hip (CMS/HCC) Hip fracture due to osteoporosis, sequela Anxiety and depression Generalized anxiety disorder Gram negative sepsis (CMS/HCC) Duodenal ulcer H pylori ulcer Stomach ulcer [...] against influenza Non-ST elevation (NSTEMI) myocardial infarction ([facility]/HCC) Nonsustained monomorphic ventricular tachycardia ([facility]/HCC) Osteoporosis Perforated viscus Pneumonia of both lungs due to infectious organism Protein-calorie malnutrition, mild (CMS/HCC) Pyelonephritis Recent fracture of hip (CMS/HCC) Smoker Sepsis without acute organ dysfunction (CMS/HCC) Sepsis due to Escherichia coli without acute organ dysfunction ([facility]/HCC) S/P PTCA (percutaneous transluminal coronary angioplasty) Sepsis due to urinary tract infection ([facility]/HCC) Traumatic rhabdomyolysis ([facility]/HCC) Two-vessel coronary artery disease Closed lumbar vertebral fracture ([facility]/HCC) Past Medical History: History reviewed. No pertinent past medical history. Past Surgical History: History reviewed. No p (more content not included)...[facility]09-04-2024 NoteHad left a message last week for assistance coordinator Irish with [facility] regarding a referral from [...] Valerio Plummer and call back # of [phone]. [facility]07-29-2024 Progress note Author Anat Perez [facility] February 07, 2024 5:07pm Note Date/Time February 07, 2024 3:18 pm [facility] [address] [place], [place] [id number] Cardiology Progress Note Signed Patient: Manolo Vickers MR#: [id number] : 1935 Acct:[id number] Age/Sex: 88 / M Adm Date: 4 Loc: Room: [address] [place] [address] Type: ADM IN Attending Dr: Warren Gross DO Copies to: ~ Date of Service: 02/07/2024 Subjective Interval history: Mr. Vickers is a 88yo M with the PMH below who is admitted to [facility] on 02/06/24 for melanotic stool and [...] for him after recent hospital stay in [place]. On admission, stool occult blood was positive. [...] MPV Neut % (Auto) Lymph % (Auto) Merrick % (Auto) Eos % (Auto) Baso % (Auto) Nucleat RBC Rel Count Neut # (Auto) Lymph # (Auto) Merrick # (Auto) Eos # (Auto) Baso # (Auto) PHA Creatinine Clear Sodium Potassium Chloride Carbon Dioxide Anion Gap BUN Creatinine Est GFR (CKD-EPI) Glucose POC Glucose 377 POC Glucose Comment Glu2: cleaned meter Estimat Average Glucose 194 Hemoglobin A1c 8.4 H Calcium Magnesium Blood Type A Positive Antibody Screen Negative Crossmatch ([facility]) See Detail 02/06/24 02/06/24 02/06/24 20:51 20:51 20:53 Corrected WBC Uncorrected WBC Count RBC Hgb Hct MCV MCH MCHC RDW Plt Count MPV Neut % (Auto) Lymph % (Auto) Merrick % (Auto) Eos % (Auto) Baso % (Auto) Nucleat RBC Rel Count Neut # (Auto) Lymph # (Auto) Merrick # (Auto) Eos # (Auto) Baso # (Auto) PHA Creatinine Clear Sodium Potassium Chloride Carbon Dioxide Anion Gap BUN Creatinine Est GFR (CKD-EPI) Glucose POC Glucose 547 H* 523 H* POC Glucose Comment Will notify dr/rn Glu2: cleaned meter Estimat Average Glucose Hemoglobin A1c Calcium Magnesium Blood Type Antibody Screen Crossmatch ([facility]) 02/06/24 02/06/24 02/06/24 20:53 20:53 22:12 Corrected WBC Uncorrected WBC Count RBC Hgb 9.0 L Hct 26.4 L MCV MCH MCHC RDW Plt Count MPV Neut % (Auto) Lymph % (Auto) Merrick % (Auto) Eos % (Auto) Baso % (Auto) Nucleat RBC Rel Count Neut # (Auto) Lymph # (Auto) Merrick # (Auto) Eos # (Auto) Baso # (Auto) PHA Creatinine Clear Sodium Potassium Chloride Carbon Dioxide Anion Gap BUN Creatinine Est GFR (CKD-EPI) Glucose POC Glucose POC Glucose Comment Will notify dr/rn Follow hypoglycemic Estimat Average Glucose Hemoglobin A1c Calcium Magnesium Blood Type Antibody Screen Crossmatch ([facility]) 02/07/24 02/07/24 02/07/24 06:21 06:35 11:12 Corrected WBC 7.2 Uncorrected WBC Count 7.2 RBC 3.24 L Hgb 8.7 L Hct 25.3 L MCV 78.1 L MCH 26.7 L MCHC 34.2 RDW 19.3 H Plt Count 184 MPV 10.8 H Neut % (Auto) 47.8 Lymph % (Auto) 28.8 Merrick % (Auto) 16.7 Eos % (Auto) 5.5 Baso % (Auto) 1.2 Nucleat RBC Rel Count 0.2 Neut # (Auto) 3.4 Lymph # (Auto) 2.1 Merrick # (Auto) 1.2 H Eos # (Auto) [...] 1.6 L Blood Type Antibody Screen Crossmatch ([facility]) A&P - Cardiology (1) Acute GI bleeding: Code(s): K92.2 - Gastrointestinal hemorrhage, unspecified (2) Elevated troponin: Code(s): R79.89 - Other specified abnormal findings of blood chemistry (3) Coronary artery disease involving circle coronary artery of circle heart without angina pectoris: Code(s): I25.10 - Atherosclerotic heart disease of circle coronary artery without angina pectoris (4) S/P PTCA (percutaneous transluminal coronary angioplasty): Code(s): Z98.61 - Coronary angioplasty status Plan # Acute recurrent GI Bleed in setting of known PUD (recent EGD on 09/01/23 found a 2 cm ulcer with a nonbleeding visible vessel at the bulb of the duodenum). # CAD s/p PCI in Jul 2023. # Ischemic Cardiomyopathy s/p LifeVest ordered in [place] - Well compensated. # Non-ACS myocardial injury - Is due to demand-supply mismatch 2/2 acute anemia. 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 Current smoker. [facility] 04/30/23 - Two-vessel coronary artery disease- 100% prox LAD occlusion; 80% D1; LCx has 50% prox stenosis with 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 Echo 04/28/24 - EF 40-45%, mild LVH, trace MR and TR. [facility] 07/16/22 - Successful PCI ostial/proximal LAD-diagonal branch; true ASSOCIATE CREATIVE DIRECTOR proximal/mid LAD (attempted wiring with balloon). EKG 09/07/23 - sinus peace 56 bpm, anterolateral TWI. EKG 09/08/23 - sinus peace 58 bpm, anterolateral and inferior TWI. - Pt is currently 6 months out from PCI. Will stop Plavix and if Hb remains stable, continue ASA 81mg daily. - Reviewed records from hospitalization at [facility] in [place]. He was hospitalized for NSTEMI and PNA. [...] follow Documented By: Anat Perez MD 02/07/24 7339 Signed By: <Electronically signed by Anat Perez MD> 02/07/24 8788 [facility] Work Phone: 1(671) 301-629707-29-2024 Progress note Author Warren Gross [facility] February 07, 2024 12:28pm Note Date/Time February 07, 2024 12:2 9pm [facility] [address] [place] [address] Hospitalist Progress Note Signed Patient: Manolo Vickers MR#: [id number] : 1935 Acct:[id number] Age/Sex: 88 / M Adm Date: 4 Loc: 3T Room: [address] [place] [address] Type: ADM IN Attending Dr: Warren Gross DO Copies to: ~ Date of Service: 02/07/2024 Subjective Subjective Narrative: Seen and evaluated, patient had had his EGD this morning and the results reviewed with him. He had explained to him that he will be on a liquid diet today, plan to resume his antiplatelet therapy patient is currently remains at [facility] risk of further bleeding and if he [...] 08:00 02/07/24 10:59 Lipa/Prot/Amyla 24-76-120k 1 Cap Capsule. PO 02/05/25 07:59 Not Given TID.WITH.MEALS TAVIA Aspirin [...] Insuln.Pen SUBCUT 02/06/25 07:59 Not Given TID.WITH.MEALS [facility] Protocol Insulin Glargine 6 units 02/07/24 09:00 [...] (1,000 Units) Tablet PO 02/06/25 08:59 DAILY [facility] A&P - Hospitalist Assessment/Plan (1) Acute GI [...] By: <Electronically signed by Warren Gross DO> 02/07/24 1228 [facility] Work Phone: 1([phone]) 578-424407-29-2024 Procedure [facility]07-28-2024 Progress note Author Sushant Cordon [facility] February 06, 2024 9:45pm Note Date/Time February 06, 2024 9:45 pm [facility] [address] [place] [address] Progress Note Signed Patient: Manolo Vickers MR#: [id number] : 1935 Acct:[id number] Age/Sex: 88 / M Adm Date: 4 Loc: Room: [address] [place] [address] Type: ADM IN Attending Dr: Nayeli Jimenez MD Copies to: ~ Date of Service: 02/06/2024 Progress Narrative Note PROGRESS NOTE Progress Note: Today the patient has developed progressively worsening hyperglycemia. The patient has history of total pancreatectomy a few years ago when he lived [facility]. He uses a G7 continuous glucose monitoring [...] <Electronically signed by Sushant Cordon, > 02/06/242144 [facility] Work Phone: 1([phone]) 789-168107-28-2024 Consult note Author Chuck Velasco [facility] February 06, 2024 2:44pm Note Date/Time February 06, 2024 2:36 pm [facility] [address] [place] [address] Cardiology Consult Note Signed Patient: Manolo Vickers MR#: [id number] : 1935 Acct:[id number] Age/Sex: 88 / M Adm Date: 4 Loc: Room: [address] [place] [address] Type: ADM IN Attending Dr: Nayeli Jimenez MD Copies to: MD Nayeli Varner MD Robert J Vaschak,DO~ Cardiology HPI History of Present Illness Consult Date: 02/06/24 Reason for Consult: GI Bleeding HPI: Mr. Vickers is a 88yo M with the PMH below who is admitted to [facility] on 02/06/24 for melanotic stool and [...] for him after recent hospital stay in [place]. On admission, stool occult blood was positive. Severe anemia of 7.7, with normal Plt of 277. Troponin was mildly elevated at 50--77--85. EKG shows sinus peace with anterolateral and inferior TWI. Review of Systems Review of Systems All other systems reviewed & are negative unless noted below or in HPI [facility] Medical History Hypertension CAD (coronary artery disease) [...] days #30 tabs 05/07/23 [Rx Confirmed 02/05/24] pharqj-brucjzye-qvgoysv 24,000-76,000-120,000 unit capsule,delayed rel (Creon) 2cap PO [...] unit subcut HS 08/31/23 [History Confirmed 10/28/23] sqnoaeidrgab-cfokdyaw-ctqqgg tablet (Multivitamin 50 Plus tablet) 1 tab [...] 90 days #180tabs 11/11/23 [Rx Confirmed 10/28/23] ejbggn-ngibjpcj-kxvcvvh 24,000-76,000-120,000 unit capsule,delayed rel (Creon) 1cap PO [...] Lymph # (Auto) 1.5 1.8 (1.00-4.8) x10E3/uL Merrick # (Auto) 0.4 0.7 (0.0-0.8) x10E3/uL Eos [...] 8 MG/HR 10 mls/hr IV .Q10H TAVIA Rx#:[id number] Sodium Chloride 0.9% 1,000 ml 1 1000 / 1000 ,000 ml @ 999 mls/hr IV .Q1H1M ONE Rx#:[id number] Oral 0 / 0 Output: Urine 350 / 350 Other: Total Intake (Blood Product) Cumulative Amt Leukocyte Reduced Rbc Unit 325 [id number] Leukocyte Reduced Rbc Unit 325 [id number] Weight 65.5 kg 65.5 kg Date of Last Bowel Movement 02/06/24 02/06/24 Lab 02/05/24 19:34 PT 15.5 H INR 1.3 APTT 23.6 L A&P - Cardiology (1) Acute GI bleeding: Code(s): K92.2 - Gastrointestinal hemorrhage, unspecified (2) Elevated troponin: Code(s): R79.89 - Other specified abnormal findings of blood chemistry (3) Coronary artery disease involving circle coronary artery of circle heart without angina pectoris: Code(s): I25.10 - Atherosclerotic heart disease of circle coronary artery without angina pectoris (4) S/P PTCA (percutaneous transluminal coronary angioplasty): Code(s): Z98.61 - Coronary angioplasty status Plan # Acute recurrent GI Bleed in setting of known PUD (recent EGD on 09/01/23 found a 2 cm ulcer with a nonbleeding visible vessel at the bulb of the duodenum). # CAD s/p PCI in Jul 2023. # Cardiomyopathy s/p LifeVest ordered in [place] - Well compensated. # Non-ACS myocardial injury - Is due to demand-supply mismatch 2/2 acute anemia. 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 Current smoker. [facility] 04/30/23 - Two-vessel coronary artery disease- 100% prox LAD occlusion; 80% D1; LCx has 50% prox stenosis with 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 Echo 04/28/24 - EF 40-45%, mild LVH, trace MR and TR. [facility] 07/16/22 - Successful PCI ostial/proximal LAD-diagonal branch; true ASSOCIATE CREATIVE DIRECTOR proximal/mid LAD (attempted wiring with balloon). EKG 09/07/23 - sinus peace 56 bpm, anterolateral TWI. EKG 09/08/23 - sinus peace 58 bpm, anterolateral and inferior TWI. - Get records from [place] on recent hospitalization and LifeVest. - GI [...] Documented By: Chuck Velasco MD 01/10 03/04 1336 Signed By: <Electronically signed by Chuck Velasco MD> 02/06/24 1445 [facility] Work Phone: 1(530) 339-473807-28-2024 Progress note Author Nayeli Jimenez [facility] February 06, 2024 12:35pm Note Date/Time February 06, 2024 12:3 5pm [facility] [address] [place] [address] Hospitalist Progress Note Signed Patient: Manolo Vickers MR#: [id number] : 1935 Acct:[id number] Age/Sex: 88 / M Adm Date: 4 Loc: Room: [address] [place] [address] Type: ADM IN Attending Dr: Nayeli Jimenez MD Copies to: ~ Date of Service: 02/06/2024 Subjective Subjective Narrative: Patient was seen evaluated at bedside, remained afebrile, hemodynamically appears stable, patient denies any BMs while here. Seen by GI team recommended cardiac clearance given his cardiac hx. Will obtain records from [place] as pt recently been there for concerns [...] <Electronically signed by Nayeli Jimenez MD> 02/06/24 1235 [facility] Work Phone: 1([phone]) [phone] Consult note Author Manuel Wolff [facility] February 06, 2024 9:36am Note Date/Time February 06, 2024 9:00 am [facility] [address] [place] [address] Gastroenterology Consult Note Signed Patient: Manolo Vickers MR#: [id number] : 1935 Acct:[id number] Age/Sex: 88 / M Adm Date: 4 Loc: 3T Room: [address] [place] [address] Type: ADM IN Attending Dr: Nayeli Jimenez MD Copies to: MD Nayeli Rendon MD Marie Castro,DO~ HPI Data of Consult Date of Consultation: 02/06/24 Requesting Physician: Nayeli Jimenez MD Consult Narrative History of present illness: Mr. Vickers is a 88 year old male admitted with syncopal episode. Briefly, the patient presented earlier this month to the [facility] after being found down, unresponsive noted low blood sugars. He was ultimately transferred to [facility] in [place]. Noted a nondisplaced ulnar fracture, atypical PNA, [...] weeks ago, prior to his admission in [place]. She does not think he is on his PPI any longer, she believes he completed treatment with that. Remote colonoscopy she reports as normal. On admission BPs initially soft, but fluid responsive. Hgb down ~2 gram from discharge from [place] 2 weeks ago. Uptrending troponin. Havingsome dynamic [...] Hematologic/Lymphatic: Denies easy bruising and Denies lymphadenopathy [facility] Medical History (Updated 02/06/24 @ 02:47 by [...] days #30 tabs 05/07/23 [Rx Confirmed 02/05/24] zldwtr-wbqhimls-tdznnzb 24,000-76,000-120,000 unit capsule,delayed rel (Creon) 2cap PO [...] unit subcut HS 08/31/23 [History Confirmed 10/28/23] wctyegrtswdi-glaukcil-xijsif tablet (Multivitamin 50 Plus tablet) 1 tab [...] 90 days #180tabs 11/11/23 [Rx Confirmed 10/28/23] gdtdod-ejnuhslt-wmqwims 24,000-76,000-120,000 unit capsule,delayed rel (Creon) 1cap PO [...] % (Auto) 78.3 Lymph % (Auto) 16.3 Merrick % (Auto) 4.8 Eos % (Auto) 0.2 Baso % (Auto) 0.4 Nucleat RBC Rel Count 0.1 Neut # (Auto) 7.0 Lymph # (Auto) 1.5 Merrick # (Auto) 0.4 Eos # (Auto) 0.0 [...] MPV Neut % (Auto) Lymph % (Auto) Merrick % (Auto) Eos % (Auto) Baso % (Auto) Nucleat RBC Rel Count Neut # (Auto) Lymph # (Auto) Merrick # (Auto) Eos # (Auto) Baso # [...] signed by Manuel Wolff MD> 02/06/24 0936 [facility] Work Phone: 1(186) 468-555307-28-2024 History and physical note Author Sushant Cordon [facility] February 06, 2024 2:52am Note Date/Time February 06, 2024 2:22 am [facility] [address] [place] [address] Hospitalist H&P Signed Patient: Manolo Vickers MR#: [id number] : 1935 Acct:[id number] Age/Sex: 88 / M Adm Date: 4 Loc: Room: [address] [place] [address] Type: ADM IN Attending Dr: Sushant Cordon [...] for him after recent hospital stay in [place]. In the emergency room the reason why the patient was hospitalized in [place] or where was unknown to the patient [...] historians, which could be because of the curb attendant hours. He describes that yesterday was terrible [...] state that [facility] he beganusing Aleve due to the discomfort the LifeVest was causing on his back. He doessay I never took more than prescribed. He does recall getting the endoscopy by Dr. Shearer back in November but did not really seem to fully comprehend the results. He says that now a [facility] was he originally went to [facility] where they did an EKG and [facility]. At [facility] he does not know all the testing [...] except as mentioned elsewhere in the documentation. [facility] Medical History (Updated 02/06/24 @ 02:47 by [...] days #30 tabs 05/07/23 [Rx Confirmed 02/05/24] mzpmbr-goxuammf-lrgkvud 24,000-76,000-120,000 unit capsule,delayed rel (Creon) 2cap PO [...] unit subcut HS 08/31/23 [History Confirmed 10/28/23] vmjgkgopcqvp-sorfvglx-vlfenc tablet (Multivitamin 50 Plus tablet) 1 tab [...] 90 days #180tabs 11/11/23 [Rx Confirmed 10/28/23] ckljsc-najmdlua-wsextit 24,000-76,000-120,000 unit capsule,delayed rel (Creon) 1cap PO [...] well conversant for his age and the curb attendant hour. He is wearing the Plaid. Jean Paul continuous glucose monitoring device on [...] % (Auto) 16.3 % (.) 02/05/24 19:34 Merrick % (Auto) 4.8 % (.) 02/05/24 19:34 Eos % (Auto) 0.2 % (.) 02/05/24 19:34 Baso % (Auto) 0.4 % (.) 02/05/24 19:34 Nucleat RBC Rel Count 0.1 /100 WBC (0-0.5) 02/05/24 19:34 Neut # (Auto) 7.0 x10E3/uL (1.8-7.7) 02/05/24 19:34 Lymph # (Auto) 1.5 x10E3/uL (1.00-4.8) 02/05/24 19:34 Merrick # (Auto) 0.4 x10E3/uL (0.0-0.8) 02/05/24 19:34 [...] days): 5 Documented By: Sushant Cordon DO 0218 Signed By: <Electronically signed by Sushant Cordon DO> 02/06/24 0252 [facility] Work Phone: 1([phone]) [phone] Evaluation note* Author Alberto [facility] Authored October 21, 2023 8:5 8am 88-year-old man with history of coronary artery disease s/p stent placement on 07/16/2023 who was recently hospitalized for melena s/p EGD with control of bleeding who came today for follow-up. 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 pylori, patient completed quadruple therapy, he has been on Protonix 40 mg twice daily since the EGD. -Will arrange for EGD to assess ulcer healing and to confirm H. pylori eradication. -I discussed with the patient possible Lewis's diagnosis and recommended EGD every 3 to 5 years. 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 He will follow up with primary Cardiology next week [facility] Work Phone: 1([phone]) 636-498902-05-2024 Miscellaneous Notes* Assessment & Plan Note - [...] Problem(s): ASHD (arteriosclerotic heart disease) Jun 2023 [facility] presented due to mechanical fall. Incidental troponin elevations Echo EF 40-45% Cath: two-vessel disease; ef 40% anterior hypokinesis Elective PCI: Jul LAD: unsuccessful attempt - ASSOCIATE CREATIVE DIRECTOR oDiag PCI/Mark 3.5 x 18mm Daily activity < 4 METs documented in this encounterUnTri[facility] Work Phone: [phone]) 768-999102-05-2024 Evaluation + Plan note* Assessment & Plan Note - JAMIE Miramontes - 08/16/2023 2:37 PM ESTAssociated Problem(s): ASHD (arteriosclerotic heart disease) Jun 2023 [facility] presented due to mechanical fall. Incidental troponin elevations Echo EF 40-45% Cath: two-vessel disease; ef 40% anterior hypokinesis Elective PCI: Jul LAD: unsuccessful attempt - ASSOCIATE CREATIVE DIRECTOR oDiag PCI/Mark 3.5 x 18mm Daily activity < 4 METs [facility] Work Phone: 1([phone]) 173-294102-05-2024 History of Present illness Narrative* JAMIE Miramontes [...] to date. Will be seeking POCfrom primary emergency vehicle technician. Patient reports that overall has complaint(s) of [...] to Plavix. Will schedule follow-up with primary emergency vehicle technician Dr. Perez next week. Review of Systems [...] Assessment: ASHD (arteriosclerotic heart disease) Jun 2023 [facility] presented due to mechanical fall. Incidental troponin elevations Echo EF 40-45% Cath: two-vessel disease; ef 40% anterior hypokinesis Elective PCI: Jul LAD: unsuccessful attempt - ASSOCIATE CREATIVE DIRECTOR oDiag PCI/Hig[place]um 3.5 x 18mm Daily activity < 4 [...] medications to the office Sammy Wolff MSN, GRAIN FARMWORKER-INTER COM INSTALLER, PMHNP-[facility] Please excuse any errors in grammar or translation related to this dictation. Voice recognition software was utilized to prepare this document. documented in this encounterMer[facility] Work Phone: [phone] 463-261002-05-2024 Instructions* Patient Instructions* JAMIE Miramontes - 08/16/2023 [...] medications to the office documented in [facility]Mer[facility] Work Phone: [phone]) 942-653101-05-2024 Discharge summary Author Federico Davis [facility] July 16, 2023 4:09pm Note Date/Time July 16, 2023 4: 06pm [facility] [address] [place] [address] Discharge Summary Signed Patient: Manolo Vickers MR#: [id number] : 1935 Acct:[id number] Age/Sex: 88 / M Adm Date: 4 [...] the LAD with 3.5 x 18 mm Hig[place]um stent 5. Chronic total occlusion proximal/mid LAD [...] branch. LAD was attempted and deemed a ASSOCIATE CREATIVE DIRECTOR and therefore aborted, diagonal branch was stented with a 3.5 x 18 mm Hig[place]um stent without complications Patient will be discharged at 10 PM on dual antiplatelet therapy to follow-up with [facility] cardiology Condition Condition at Discharge: Stable Status [...] % (Auto) 75.7, Lymph % (Auto) 8.4, Merrick % (Auto) 15.1, Eos % (Auto) 0.3, Baso % (Auto) 0.5, Nucleat RBC Rel Count 0.1, Neut # (Auto) 6.3, Lymph # (Auto) 0.7 L, Merrick # (Auto) 1.3 H, Eos # (Auto) [...] doctor or pharmacist, without first calling the emergency vehicle technician who implanted the stent. If you require [...] weight lifting, stair steppers, etc. until the emergency vehicle technician approves these activities. Check with the emergency vehicle technician on your first follow-up visit. CALL YOUR PHYSICIAN at [phone]: -If bleeding should occur from the catheter insertion site- apply pressure to the site then immediately call us. -Report any fever, redness, drainage, increased swelling, or firmness at the catheter insertion site. Some bruising or slight swelling may be present at thetime of discharge. -Should arm or leg become cold, numb, white, or blue, contact the emergency vehicle technician immediately. -IF you should experience episodes of [...] is recommended. Please call Central Scheduling at [phone] to schedule your appointment.] The attending emergency vehicle technician or [facility] nurse clinician should provide you with specific instructions regarding activity, diet, medications, and further follow up for you. Follow the medication instructions provided on your discharge. If the dosages and instructions on this sheet differ from the dosage and instructions on the bottle, follow the instructions on the bottle. [facility] is not responsible for incorrect [...] 30 Days Qty: 30 0RF Follow Up: [facility] [Outside] - 08/16/23 2:00 pm Documented By: Federico Davis DO 07/16/23 1602 Signed By: <Electronically signed by Federico Davis DO> 07/16/23 1609 [facility] Work Phone: [phone]) 360-335001-05-2024 [facility]11-14-2023 History of Present illness Narrative* Govind Davis [...] Future 3. NSTEMI (non-ST elevated myocardial infarction) ([facility]/HCC) - Follow Up In Cardiology; Future 4. Essential hypertension 5. Diabetes mellitus type II, non insulin dependent ([facility]) 6. Closed fracture of right hip, initial encounter ([facility]) documented in this encounterMer[facility] Work Phone: [phone]) 486-770511-14-2023 Instructions* Patient Instructions* Lori Pelayo LPN - [...] your visit. documented in this encounterMer[facility] Work Phone: [phone]) 699-660511-10-2023 Evaluation note* Encounter Date Diagnosis Assessment Notes Treatment Notes Treatment Clinical Notes May, Closed displaced intertrochanteric fracture of right femur, initial encounter (ICD-10 - S72.141A) Radiographs of right hip was reviewed with the patient today, along with a physical examination. Patient should continue with PT. Continue use of pain medication to control pain. [employer] Other 10-27-2023 Progress note Author Fredi Medrano [facility] May 07, 2023 12:48pm Note Date/Time May 07, 2023 1 2:36pm [facility] [address] [place] [address] Physiatry(Rehab) Progress Note Signed Patient: Manolo Vickers MR#: [id number] : 1935 Acct:[id number] Age/Sex: 88 / M Adm Date: 3 Loc: Room: [address] [place] [address] Type: ADM IN Attending Dr: Fredi Medrano [...] hypoglycemic in 40s. Patient was brought to [facility] ER where imaging demonstrated mildly displaced [...] mg 05/03/23 16:59 Bisacodyl 10 Mg Supp.Rect TN 05/02/24 16:58 DAILY PRN Constipation Calcium Carbonate [...] 16:59 Docusate Enema 283 Mg/5 Ml Enema TN 05/02/24 16:58 DAILY PRN Constipation Enoxaparin Sodium [...] units TID.WITH.MEALS [facility] Administration Protocol Insulin Aspart 0 units 05/03/23 18:00 05/07/23 12:13 Insulin Aspart 300 Units/3 Ml Insuln.Pen SUBCUT 05/02/24 17:59 2 units ACHS [facility] Administration Protocol Insulin Glargine 7 units 05/03/23 [...] Code(s): I25.10 - Atherosclerotic heart disease of circle coronary artery without angina pectoris Status: Acute [...] Code(s): I25.10 - Atherosclerotic heart disease of circle coronary artery without angina pectoris Status: Acute [...] equipment to enhance the patient's a functional holiness Ensure adequate nutrition and hydration Sleep no issues Pain: Continue current regimen. Discharge planning Home with in 7 to 10 days. I spent greater than 15 minutes for services, including zbwm-mi-acaq encounter with the patient, discussion of the case, plan of care, and exam; and utxrhcc-cg-tdov activities, such as reviewing pertinent wellness consultant documentation, recent therapy notes, laboratory and radiology studies, and discussion of case with care team including physician, nursing, family service caseworker, and therapists. More than 50 % of time was spent on patient/family counseling or coordination ofcare. Plan: I completed a substantive portion of this encounter, the medical decision makingportion of this note in its entirety, including Allied health note review, nursing note review, wellness consultant note review, discussion with nursing and case management, and more than 50% of my time was spent on counseling and coordination of care, time spent 25 minutes Patient was personally seen by me, Dr. Medrano, on the day of encounter, reviewed the history and the relevant portions of the chart, including current orders, allied health and wellness consultant notes, labs/imaging and performed smyth elements of exam and I formulated the plan of care and facilitated the medical decision making. Documented By: Fredi Medrano MD 1234 Signed By: <Electronically signed by Fredi Medrano MD> 05/07/23 1248 [facility] Work Phone: 1([phone]) 201-351010-26-2023 Progress note Author Fredi Medrano [facility] May 06, 2023 2:46pm Note Date/Time May 06, 2023 1 2:53pm [facility] [address] [place] [address] Physiatry(Rehab) Progress Note Signed Patient: Manolo Vickers MR#: [id number] : 1935 Acct:[id number] Age/Sex: 88 / M Adm Date: 3 Loc: Room: [address] [place] [address] Type: ADM IN Attending Dr: Fredi Medrano [...] hypoglycemic in 40s. Patient was brought to [facility] ER where imaging demonstrated mildly displaced [...] mg 05/03/23 16:59 Bisacodyl 10 Mg Supp.Rect TN 05/02/24 16:58 DAILY PRN Constipation Calcium Carbonate [...] 16:59 Docusate Enema 283 Mg/5 Ml Enema TN 05/02/24 16:58 DAILY PRN Constipation Enoxaparin Sodium [...] units TID.WITH.MEALS [facility] Administration Protocol Insulin Aspart 0 units 05/03/23 18:00 05/06/23 06:38 Insulin Aspart 300 Units/3 Ml Insuln.Pen SUBCUT 05/02/24 17:59 Not Given ACHS [facility] Protocol Insulin Glargine 7 units 05/03/23 21:00 [...] Code(s): I25.10 - Atherosclerotic heart disease of circle coronary artery without angina pectoris Status: Acute [...] Code(s): I25.10 - Atherosclerotic heart disease of circle coronary artery without angina pectoris Status: Acute [...] equipment to enhance the patient's a functional holiness Ensure adequate nutrition and hydration Sleep no issues Pain: Continue current regimen. Discharge planning Home with in 7 to 10 days. I spent greater than 15 minutes for services, including nygk-qs-mjvy encounter with the patient, discussion of the case, plan of care, and exam; and wfxpjlu-ug-reqh activities, such as reviewing pertinent wellness consultant documentation, recent therapy notes, laboratory and radiology studies, and discussion of case with care team including physician, nursing, family service caseworker, and therapists. More than 50 % of [...] the chart, including currentorders, allied health and wellness consultant notes, labs/imaging and plan of care as above. Documented By: Teena Victoria APRN 05/06/23 1 250 Signed By: <Electronically signed by MAADA Victoria> 05/06/23 1314 <Electronically signed by Fredi Medrano MD> 05/06/23 4876 [facility] Work Phone: [phone]) 559-842710-26-2023 Consult note Author Vidya Robert [facility] May 06, 2023 1:15pm Note Date/Time May 04, 2023 3 :49pm [facility] [address] [place] [address] Hospitalist Consult Note Signed Patient: Manolo Vickers MR#: [id number] : 1935 Acct:[id number] Age/Sex: 88 / M Adm Date: 3 Loc: Room: 0D8599-9 Type: ADM IN Attending Dr: Fredi Medrano [...] negative unless noted below or in HPI [facility] Medical History (Updated 05/04/23 @ [...] Allergies Allergy (Verified 04/28/23 12:20) Home Medications sqxfkv-gizvjwor-dcyrvlt 24,000-76,000-120,000 unit capsule,delayed rel (Creon) 2cap PO [...] mg 05/03/23 16:59 Bisacodyl 10 Mg Supp.Rect TN 05/02/24 16:58 DAILY PRN Constipation Calcium Carbonate [...] 16:59 Docusate Enema 283 Mg/5 Ml Enema TN 05/02/24 16:58 DAILY PRN Constipation Enoxaparin Sodium [...] % (Auto) 64.9, Lymph % (Auto) 23.0, Merrick % (Auto) 9.9, Eos % (Auto) 1.5, Baso % (Auto) 0.7, Nucleat RBC Rel Count 0.2, Neut # (Auto) 4.6, Lymph # (Auto) 1.6, Merrick # (Auto) 0.7, Eos # (Auto) 0.1, [...] Documented By: Nidia Wright APRN 04/12 11/01 1544 Signed By: <Electronically signed by AMADA Wright> 05/05/23 0859 <Electronically signed by Vidya Robert MD> 05/06/23 1315 [facility] Work Phone: 1([phone]) 996-144510-25-2023 Progress note Author Fredi Medrano [facility] May 05, 2023 1:10pm Note Date/Time May 05, 2023 1 :11pm [facility] [address] [place] [address] Physiatry(Rehab) Progress Note Signed Patient: Manolo Vickers MR#: [id number] : 1935 Acct:[id number] Age/Sex: 88 / M Adm Date: 3 Loc: 5T Room: 6Q6085-1 Type: ADM IN Attending Dr: Fredi Medrano [...] hypoglycemic in 40s. Patient was brought to [facility] ER where imaging demonstrated mildly displaced [...] mg 05/03/23 16:59 Bisacodyl 10 Mg Supp.Rect TN 05/02/24 16:58 DAILY PRN Constipation Calcium Carbonate [...] 16:59 Docusate Enema 283 Mg/5 Ml Enema TN 05/02/24 16:58 DAILY PRN Constipation Enoxaparin Sodium [...] Code(s): I25.10 - Atherosclerotic heart disease of circle coronary artery without angina pectoris Status: Acute [...] Code(s): I25.10 - Atherosclerotic heart disease of circle coronary artery without angina pectoris Status: Acute [...] equipment to enhance the patient's a functional holiness Ensure adequate nutrition and hydration Sleep no issues Pain: Continue current regimen. Discharge planning Home with in 7 to 10 days. Plan: I completed a substantive portion of this encounter, the medical decision makingportion of this note in its entirety, including Allied health note review, nursing note review, wellness consultant note review, discussion with nursing and case management, and more than 50% of my time was spent on counseling and coordination of care, time spent 25 minutes Patient was personally seen by me, Dr. Medrano, on the day of encounter, reviewed the history and the relevant portions of the chart, including current orders, allied health and wellness consultant notes, labs/imaging and performed smyth elements of exam and I formulated the plan of care and facilitated the medical decision making. Documented By: Fredi Medrano MD 1308 Signed By: <Electronically signed by Fredi Medrano MD> 05/05/23 1310 [facility] Work Phone: 1(121) 696-152410-25-2023 History and physical note Author Fredi Medrano [facility] May 05, 2023 10:01am Note Date/Time May 04, 2023 1 1:35am [facility] [address] [place] [address] Physiatry (Rehab) H&P Signed Patient: Manolo Vickers MR#: [id number] : 1935 Acct:[id number] Age/Sex: 88 / M Adm Date: 3 Loc: Room: [address] [place] [address] Type: ADM IN Attending Dr: Fredi Medrano [...] hypoglycemic in 40s. Patient was brought to [facility] ER where imaging demonstrated mildly displaced [...] two-story home. Does not use assistive devices. [facility] Medical History Anxiety and depression [...] 12:20) Home and Active Meds: Home Medications kdtyrg-rwokykgq-zjaazdf 24,000-76,000-120,000 unit capsule,delayed rel (Creon) 2cap PO [...] Bisacodyl (Bisacodyl 10 Mg Supp.Rect) 10 mg TN DAILY PRN PRN Reason: Constipation Stop: 05/02/24 [...] Enema 283 Mg/5 Ml Enema) 283 mg TN DAILY PRN PRN Reason: Constipation Stop: 05/02/24 16:58 Enoxaparin Sodium (Enoxaparin 40 Mg/0.4 Ml Syringe) 40 mg SUBCUT DAILY@1000 [facility] Stop: 05/03/24 09:59 Insulin Aspart (Insulin Aspart 300 Units/3 Ml Insuln.Pen) 0 units SUBCUT TID.WITH.MEALS [facility]; Protocol Stop: 05/02/24 16:59 Last Admin: 05/04/23 08:27 Dose: 7 units Insulin Aspart (Insulin Aspart 300 Units/3 Ml Insuln.Pen) 0 units SUBCUT ACHS [facility]; Protocol Stop: 05/02/24 17:59 Last Admin: 05/04/23 08:27 Dose: 1 units Insulin Glargine (Insulin Glargine 300 Units/3 Ml Insuln.Pen) 7 units SUBCUT BID [facility] Stop: 05/02/24 20:59 Last Admin: 05/04/23 08:16 [...] PO DAILY [facility] Stop: 05/03/24 08:59 Last Admin: 05/04/23 08:10 [...] PO DAILY [facility] Stop: 05/03/24 08:59 Last Admin: 05/04/23 08:10 Dose: 0.4 mg Triamcinolone Acetonide (Triamcinolone 0.1% Cream 15 Gm Tube) 1 applic TOPICAL QID PRN PRN Reason: Irritation Stop: 05/02/24 17:10 Valsartan (Valsartan 80 Mg Tablet) 80 mg PO DAILY [facility] Stop: 05/03/24 08:59 Last Admin: 05/04/23 08:10 [...] % (Auto) 64.9 Lymph % (Auto) 23.0 Merrick % (Auto) 9.9 Eos % (Auto) 1.5 Baso % (Auto) 0.7 Nucleat RBC Rel Count 0.2 Neut # (Auto) 4.6 Lymph # (Auto) 1.6 Merrick # (Auto) 0.7 Eos # (Auto) 0.1 [...] MPV Neut % (Auto) Lymph % (Auto) Merrick % (Auto) Eos % (Auto) Baso % (Auto) Nucleat RBC Rel Count Neut # (Auto) Lymph # (Auto) Merrick # (Auto) Eos # (Auto) Baso # [...] 24 hour daily monitoring and intervention from Coal Chute Worker as well as other consulting physicians including internal medicine as well as 24 hour daily environmental technical officer nursing - for medical safe / optimal [...] Code(s): I25.10 - Atherosclerotic heart disease of circle coronary artery without angina pectoris Status: Acute [...] Code(s): I25.10 - Atherosclerotic heart disease of circle coronary artery without angina pectoris Status: Acute [...] equipment to enhance the patient's a functional holiness Ensure adequate nutrition and hydration Sleep no issues Pain: Continue current regimen. Discharge planning Home with in 7 to 10 days. I spent greater than 45 minutes for services, including saru-ct-ucqf encounter with the patient, discussion of the case, plan of care, and exam; and lewflkk-bh-sccv activities, such as reviewing pertinent wellness consultant documentation, recent therapy notes, laboratory and radiology studies, and discussion of case with care team including physician, nursing, family service caseworker, and therapists. More than 50 % of time was spent on patient/family counseling or coordination ofcare. Plan: I completed a substantive portion of this encounter, the medical decision makingportion of this note in its entirety, including Allied health note review, nursing note review, wellness consultant note review, discussion with nursing and case management, and more than 50% of my time was spent on counseling and coordination of care, time spent 70 minutes Patient was personally seen by me, Dr. Medrano, on the day of encounter, within 24 hours of rehab admission, reviewed the history and the relevant portions of the chart, including current orders, allied health and wellness consultant notes, labs/imaging and performed smyth elements of exam and I formulated the planof care and facilitated the medical decision making. Documented By: Teena Victoria APRN 05/04/23 1 122 Signed By: <Electronically signed by AMADA Victoria> 05/04/23 1209 <Electronically signed by Fredi Medrano MD> 05/05/23 1001 [facility] Work Phone: 1(888) 917-975610-23-2023 Progress note Author Ashwini Conrad [facility] May 03, 2023 12:02pm Note Date/Time May 03, 2023 1 1:49am [facility] [address] [place] [address] Orthopedic Progress Note Signed Patient: Manolo Vickers MR#: [id number] : 1935 Acct:[id number] Age/Sex: 88 / M Adm Date: 3 Loc: 4N Room: 0R6565-7 Type: ADM IN Attending Dr: Humberto Diaz [...] Code(s): I25.10 - Atherosclerotic heart disease of circle coronary artery without angina pectoris Status: Acute [...] signed by Ashwini Conrad MD> 05/03/23 1202 [facility] Work Phone: 1(729) 605-332210-22-2023 Progress note Author Sushant Cordon [facility] May 02, 2023 2:35pm Note Date/Time May 02, 2023 2 :35pm [facility] [address] [place] [address] Hospitalist Progress Note Signed Patient: Manolo Vickers MR#: [id number] : 1935 Acct:[id number] Age/Sex: 88 / M Adm Date: 3 Loc: Room: 7O7023-4 Type: ADM IN Attending Dr: Sushant Cordon [...] 12 163/71 H 96 Room Air 6 10/22/23 08:12 05/02/23 12:48 05/02/23 12:48 05/02/23 12:48 [...] 08:00 05/02/23 12:16 Lipa/Prot/Amyla 24-76-120k [address] PO 04/28/24 [...] mg 04/28/23 17:19 Bisacodyl 10 Mg Supp.Rect TN 04/27/24 17:18 DAILY PRN Constipation Calcium Carbonate [...] 16:59 TID.WITH.MEALS [facility] Protocol Insulin Glargine 7 units 05/01/23 21:00 [...] additional questions. Documented By: Sushant Cordon DO 143 Signed By: <Electronically signed by Sushant Cordon DO> 05/02/23 5077 [facility] Work Phone: 1(461) 283-316210-22-2023 Progress note Author Ashwini Conrad [facility] May 02, 2023 2:12pm Note Date/Time May 02, 2023 2 :12pm [facility] [address] [place] [address] Orthopedic Progress Note Signed Patient: Manolo Vickers MR#: [id number] : 1935 Acct:[id number] Age/Sex: 88 / M Adm Date: 3 Loc: 4N Room: 5K7922-2 Type: ADM IN Attending Dr: Sushant Cordon [...] MPV Neut % (Auto) Lymph % (Auto) Merrick % (Auto) Eos % (Auto) Baso % (Auto) Nucleat RBC Rel Count Neut # (Auto) Lymph # (Auto) Merrick # (Auto) Eos # (Auto) Baso # [...] % (Auto) 71.9 Lymph % (Auto) 13.7 Merrick % (Auto) 13.5 Eos % (Auto) 0.8 Baso % (Auto) 0.1 Nucleat RBC Rel Count 0.0 Neut # (Auto) 6.2 Lymph # (Auto) 1.2 Merrick # (Auto) 1.2 H Eos # (Auto) [...] MPV Neut % (Auto) Lymph % (Auto) Merrick % (Auto) Eos % (Auto) Baso % (Auto) Nucleat RBC Rel Count Neut # (Auto) Lymph # (Auto) Merrick # (Auto) Eos # (Auto) Baso # (Auto) PHA Creatinine Clear Sodium Potassium Chloride Carbon Dioxide Anion Gap BUN Creatinine Est GFR (CKD-EPI) Glucose POC Glucose 376 POC Glucose Comment Calcium Triglycerides Cholesterol LDL Cholesterol, Calc VLDL Cholesterol HDL Cholesterol Cholesterol/HDL Ratio Assessment / Plan Assessment and plan (1) Two-vessel coronary artery disease: Code(s): I25.10 - Atherosclerotic heart disease of circle coronary artery without angina pectoris Status: Acute [...] Ashwini Conrad MD> 05/02/23 1412 [facility] Work Phone: [phone]) 578-701710-22-2023 Progress note Author Harsh Martines [facility] May 02, 2023 10:49am Note Date/Time May 02, 2023 1 0:49am [facility] [address] [place] [address] Cardiology Progress Note Signed Patient: Manolo Vickers MR#: [id number] : 1935 Acct:[id number] Age/Sex: 88 / M Adm Date: 3 Loc: 4N Room: [address] [place] [address] Type: ADM IN Attending Dr: Sushant Cordon [...] is to be determined by her primary emergency vehicle technician and Dr. Davis Exam Physical Exam Vital [...] MPV Neut % (Auto) Lymph % (Auto) Merrick % (Auto) Eos % (Auto) Baso % (Auto) Nucleat RBC Rel Count Neut # (Auto) Lymph # (Auto) Merrick # (Auto) Eos # (Auto) Baso # [...] % (Auto) 71.9 Lymph % (Auto) 13.7 Merrick % (Auto) 13.5 Eos % (Auto) 0.8 Baso % (Auto) 0.1 Nucleat RBC Rel Count 0.0 Neut # (Auto) 6.2 Lymph # (Auto) 1.2 Merrick # (Auto) 1.2 H Eos # (Auto) [...] MPV Neut % (Auto) Lymph % (Auto) Merrick % (Auto) Eos % (Auto) Baso % (Auto) Nucleat RBC Rel Count Neut # (Auto) Lymph # (Auto) Merrick # (Auto) Eos # (Auto) Baso # [...] Code(s): I25.10 - Atherosclerotic heart disease of circle coronary artery without angina pectoris Status: Acute [...] coronary intervention Documented By: Harsh Martines MD, [facility] 3 1047 Signed By: <Electronically signed by [facility] Harsh Martines> 05/02/23 1049 [facility] Work Phone: [phone]) [phone] Progress note Author Sushant Cordon [facility] May 01, 2023 3:13pm Note Date/Time May 01, 2023 3 :09pm [facility] [address] [place] [address] Hospitalist Progress Note Signed Patient: Manolo Vickers MR#: [id number] : 1935 Acct:[id number] Age/Sex: 88 / M Adm Date: 3 Loc: 4N Room: 1L2384-1 Type: ADM IN Attending Dr: Sushant Cordon [...] mg 04/28/23 17:19 Bisacodyl 10 Mg Supp.Rect TN 04/27/24 17:18 DAILY PRN Constipation Calcium Carbonate [...] Capsule PO 04/27/24 20:59 200 mg BID [facility] Administration Enoxaparin Sodium 40 mg 05/01/23 10:00 05/01/23 09:31 Enoxaparin 40 Mg/0.4 Ml Syringe SUBCUT 04/30/24 09:59 40 mg DAILY@1000 [facility] Administration Glucose 0 gm 04/28/23 17:14 04/30/23 08:42 Dextrose 40% Gel 15 Gm Tube PO 04/27/24 17:13 15 gm PRN PRN Administration Hypoglycemia Hydromorphone HCl 1 mg 04/28/23 17:19 05/01/23 14:16 Hydromorphone 1 Mg/Ml Syringe IV-PUSH 1 mg Q4H PRN Administration Pain Insulin Aspart 0 units 04/28/23 22:00 05/01/23 12:00 Insulin Aspart 300 Units/3 Ml Insuln.Pen SUBCUT 04/27/24 21:59 Not Given TID.[facility] Protocol Insulin Glargine 7 units 05/01/23 21:00 Insulin Glargine 300 Units/3 Ml Insuln.Pen SUBCUT 04/30/24 20:59 BID [facility] Lidocaine HCl 0.1 ml 04/29/23 01:31 Lidocaine [...] signed by Sushant Cordon DO> 05/01/23 1513 [facility] Work Phone: 1(703) 869-418810-21-2023 Progress note Author Harsh Martines [facility] May 01, 2023 12:24pm Note Date/Time May 01, 2023 1 2:21pm [facility] [address] [place] [address] Cardiology Progress Note Signed Patient: Manolo Vickers MR#: [id number] : 1935 Acct:[id number] Age/Sex: 88 / M Adm Date: 3 Loc: 4N Room: [address] [place] [address] Type: ADM IN Attending Dr: Sushant Cordon [...] MPV Neut % (Auto) Lymph % (Auto) Merrick % (Auto) Eos % (Auto) Baso % (Auto) Nucleat RBC Rel Count Neut # (Auto) Lymph # (Auto) Merrick # (Auto) Eos # (Auto) Baso # [...] MPV Neut % (Auto) Lymph % (Auto) Merrick % (Auto) Eos % (Auto) Baso % (Auto) Nucleat RBC Rel Count Neut # (Auto) Lymph # (Auto) Merrick # (Auto) Eos # (Auto) Baso # [...] MPV Neut % (Auto) Lymph % (Auto) Merrick % (Auto) Eos % (Auto) Baso % (Auto) Nucleat RBC Rel Count Neut # (Auto) Lymph # (Auto) Merrick # (Auto) Eos # (Auto) Baso # [...] MPV Neut % (Auto) Lymph % (Auto) Merrick % (Auto) Eos % (Auto) Baso % (Auto) Nucleat RBC Rel Count Neut # (Auto) Lymph # (Auto) Merrick # (Auto) Eos # (Auto) Baso # [...] % (Auto) 68.2 Lymph % (Auto) 16.8 Merrick % (Auto) 14.1 Eos % (Auto) 0.6 Baso % (Auto) 0.3 Nucleat RBC Rel Count 0.1 Neut # (Auto) 6.0 Lymph # (Auto) 1.5 Merrick # (Auto) 1.2 H Eos # (Auto) [...] MPV Neut % (Auto) Lymph % (Auto) Merrick % (Auto) Eos % (Auto) Baso % (Auto) Nucleat RBC Rel Count Neut # (Auto) Lymph # (Auto) Merrick # (Auto) Eos # (Auto) Baso # [...] Code(s): I25.10 - Atherosclerotic heart disease of circle coronary artery without angina pectoris Status: Acute [...] coronary intervention Documented By: Harsh Martines MD, [facility] 3 1220 Signed By: <Electronically signed by [facility] Harsh Martines> 05/01/23 1224 [facility] Work Phone: 1([phone]) 191-296410-21-2023 Progress note Author Ashwini Conrad [facility] May 01, 2023 11:31am Note Date/Time May 01, 2023 1 1:31am [facility] [address] [place] [address] Orthopedic Progress Note Signed Patient: Manolo Vickers MR#: [id number] : 1935 Acct:[id number] Age/Sex: 88 / M Adm Date: 3 Loc: 4N Room: 0E2431-6 Type: ADM IN Attending Dr: Sushant Cordon [...] % (Auto) 79.2 Lymph % (Auto) 5.9 Merrick % (Auto) 14.6 Eos % (Auto) 0.0 Baso % (Auto) 0.3 Nucleat RBC Rel Count 0.1 Neut # (Auto) 7.4 Lymph # (Auto) 0.6 L Merrick # (Auto) 1.4 H Eos # (Auto) [...] MPV Neut % (Auto) Lymph % (Auto) Merrick % (Auto) Eos % (Auto) Baso % (Auto) Nucleat RBC Rel Count Neut # (Auto) Lymph # (Auto) Merrick # (Auto) Eos # (Auto) Baso # [...] MPV Neut % (Auto) Lymph % (Auto) Merrick % (Auto) Eos % (Auto) Baso % (Auto) Nucleat RBC Rel Count Neut # (Auto) Lymph # (Auto) Merrick # (Auto) Eos # (Auto) Baso # [...] MPV Neut % (Auto) Lymph % (Auto) Merrick % (Auto) Eos % (Auto) Baso % (Auto) Nucleat RBC Rel Count Neut # (Auto) Lymph # (Auto) Merrick # (Auto) Eos # (Auto) Baso # [...] MPV Neut % (Auto) Lymph % (Auto) Merrick % (Auto) Eos % (Auto) Baso % (Auto) Nucleat RBC Rel Count Neut # (Auto) Lymph # (Auto) Merrick # (Auto) Eos # (Auto) Baso # [...] % (Auto) 68.2 Lymph % (Auto) 16.8 Merrick % (Auto) 14.1 Eos % (Auto) 0.6 Baso % (Auto) 0.3 Nucleat RBC Rel Count 0.1 Neut # (Auto) 6.0 Lymph # (Auto) 1.5 Merrick # (Auto) 1.2 H Eos # (Auto) [...] MPV Neut % (Auto) Lymph % (Auto) Merrick % (Auto) Eos % (Auto) Baso % (Auto) Nucleat RBC Rel Count Neut # (Auto) Lymph # (Auto) Merrick # (Auto) Eos # (Auto) Baso # [...] Code(s): I25.10 - Atherosclerotic heart disease of circle coronary artery without angina pectoris Status: Acute [...] signed by Ashwini Conrad MD> 05/01/23 1131 [facility] Work Phone: 1(355) 605-537310-20-2023 Progress note Author Sushant Cordon [facility] April 30, 2023 9:13pm Note Date/Time April 30, 2023 9 :13pm [facility] [address] [place] [address] Hospitalist Progress Note Signed Patient: Manolo Vickers MR#: [id number] : 1935 Acct:[id number] Age/Sex: 88 / M Adm Date: 3 Loc: 4N Room: [address] [place] [address] Type: ADM IN Attending Dr: Sushant Cordon [...] mg 04/28/23 17:19 Bisacodyl 10 Mg Supp.Rect TN 04/27/24 17:18 DAILY PRN Constipation Calcium Carbonate [...] 09:59 DAILY@1000 [facility] Glucose 0 gm 04/28/23 17:14 04/30/23 08:42 [...] Lactated Ringers IV 04/29/24 16:44 Not Given .[id number] TAVIA Cefazolin Sodium 1 gm in 50 [...] Cap.Er.24h PO 04/28/24 08:59 Not Given DAILY ATVIA Triamcinolone Acetonide 1 applic 04/30/23 09:42 Triamcinolone [...] <Electronically signed by Sushant Cordon, > 04/30/232112 [facility] Work Phone: 1([phone]) 379-375910-20-2023 Hospital Discharge instructions Additional Instructions Rehab to [...] high armed straight-backed chair. 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 -Continue to use walker or [...] OTHER -Any problems- Call the office at [phone] or return to Emergency Room. -If you are having excessive or persistent pain, swelling, fever (oral temp >101), yellow-green foul smelling drainage or bleeding from incision, excessive redness of incision, nausea, vomiting, or any other problems, you should first call your surgeon at [phone] for advice. If you are unable to contact your surgeon, seek help from a hospital emergency room. FOLLOW UP -Call my office the first business day after discharge and ask for assistance with post-discharge plans, and appointments.[facility] Work Phone: 1(671) 606-104010-20-2023 Progress note Author Anat Perez [facility] April 30, 2023 10:32am Note Date/Time April 30, 2023 1 0:32am [facility] [address] [place] [address] Cardiology Progress Note Signed Patient: Manolo Vickers MR#: [id number] : 1935 Acct:[id number] Age/Sex: 88 / M Adm Date: 3 Loc: 4N Room: 7K6938-5 Type: ADM IN Attending Dr: Sushant Cordon [...] overnight. Denies chest pain or dyspnea. [facility] scheduled for this AM (findings [...] MPV Neut % (Auto) Lymph % (Auto) Merrick % (Auto) Eos % (Auto) Baso % (Auto) Nucleat RBC Rel Count Neut # (Auto) Lymph # (Auto) Merrick # (Auto) Eos # (Auto) Baso # [...] MPV Neut % (Auto) Lymph % (Auto) Merrick % (Auto) Eos % (Auto) Baso % (Auto) Nucleat RBC Rel Count Neut # (Auto) Lymph # (Auto) Merrick # (Auto) Eos # (Auto) Baso # [...] % (Auto) 60.6 Lymph % (Auto) 22.0 Merrick % (Auto) 16.4 Eos % (Auto) 0.6 Baso % (Auto) 0.4 Nucleat RBC Rel Count 0.1 Neut # (Auto) 5.4 Lymph # (Auto) 2.0 Merrick # (Auto) 1.5 H Eos # (Auto) [...] MPV Neut % (Auto) Lymph % (Auto) Merrick % (Auto) Eos % (Auto) Baso % (Auto) Nucleat RBC Rel Count Neut # (Auto) Lymph # (Auto) Merrick # (Auto) Eos # (Auto) Baso # [...] MPV Neut % (Auto) Lymph % (Auto) Merrick % (Auto) Eos % (Auto) Baso % (Auto) Nucleat RBC Rel Count Neut # (Auto) Lymph # (Auto) Merrick # (Auto) Eos # (Auto) Baso # [...] Dizziness/syncope due to recurrent hypoglycemia Recommendations: - LHC this am is significant for two-vessel coronary artery disease- 100% prox LAD occlusion; 80% D1; LCx has 50% prox stenosis with 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 - Discussed with solutions operator- Dr Davis regarding timing of intervention- [...] signed by Anat Perez MD> 04/30/23 1032 [facility] Work Phone: 1(340) 782-596910-20-2023 [facility] Progress note Author Sushant Cordon [facility] April 29, 2023 6:28pm Note Date/Time April 29, 2023 6 :28pm [facility] [address] [place] [address] Hospitalist Progress Note Signed Patient: Manolo Vickers MR#: [id number] : 1935 Acct:[id number] Age/Sex: 88 / M Adm Date: 3 Loc: 4 Room: [address] [place] [address] Type: ADM IN Attending Dr: Sushant Cordon [...] mg 04/28/23 17:19 Bisacodyl 10 Mg Supp.Rect TN 04/27/24 17:18 DAILY PRN Constipation Calcium Carbonate [...] Dextrose-Lactated Ringers IV 04/27/24 17:14 125 mls/hr .[id number] TAVIA Administration Lactated Ringer's 1,000 mls @ [...] by Sushant Cordon DO> 04/29/231827 [facility] Work Phone: 1(432) 438-676210-19-2023 Consult note Author Anat Perez [facility] April 29, 2023 5:34pm Note Date/Time April 29, 2023 5 :07pm [facility] [address] [place] [address] Cardiology Consult Note Signed Patient: Manolo Vickers MR#: [id number] : 1935 Acct:[id number] Age/Sex: 88 / M Adm Date: 3 Loc: Room: [address] [place] [address] Type: ADM IN Attending Dr: Sushant Cordon [...] negative unless noted below or in HPI [facility] Medical History (Updated 04/29/23 @ 17:34 by Anat Perez MD) BPH (benign prostatic hyperplasia) Diabetes type 1 Surgical History (Updated 04/28/23 @ 17:34 by Sushant Cordon DO) History of pancreatectomy Family History (Updated 04/28/23 @ 16:16 by Viivan Munoz RN) Brother Cancer Son Sarcoma Social [...] unit subcut HS 04/28/23 [History Confirmed 04/28/23] ejcxxv-gstkxwqs-wwkyayd 24,000-76,000-120,000 unit capsule,delayed rel (Creon) 2cap PO [...] x10E3/uL Lymph # (Auto) 2.0 (1.00-4.8) x10E3/uL Merrick # (Auto) 1.1 H (0.0-0.8) x10E3/uL Eos [...] IV .Q8H [facility] Rx#:[id number] Oral 0 / 0 0 / 0 [...] prior to surgery. -Will plan for [facility] tomorrow for further evaluation/risk stratification. NPO past midnight. Documented By: Anat Perez MD 04/29/231703 Signed By: <Electronically signed by Anat Perez MD> 04/29/23 1734 [facility] Work Phone: 1(357) [phone] Consult note Author Ashwini Conrad [facility] April 28, 2023 6:47pm Note Date/Time April 28, 2023 6 :43pm [facility] [address] [place] [address] Orthopedic Consult Note Signed Patient: Manolo Vickers MR#: [id number] : 1935 Acct:[id number] Age/Sex: 88 / M Adm Date: 3 Loc: Room: [address] [place] [address] Type: ADM IN Attending Dr: Sushant Cordon [...] negative unless noted below or in HPI [facility] Medical History (Updated 04/28/23 @ [...] unit subcut HS 04/28/23 [History Confirmed 04/28/23] aittoj-ncnfbsdu-dmlsnot 24,000-76,000-120,000 unit capsule,delayed rel (Creon) 2cap PO [...] Appearance Clear, Urine pH 6.5, Ur Specific [place] 1.009, Urine Protein Negative, Urine Glucose (UA) [...] % (Auto) 75.0, Lymph % (Auto) 14.8, Merrick % (Auto) 9.3, Eos % (Auto) 0.5, Baso % (Auto) 0.4, Nucleat RBC Rel Count 0.1, Neut # (Auto) 7.3, Lymph # (Auto) 1.4, Merrick # (Auto) 0.9 H, Eos # (Auto) 0.0, Baso # (Auto) 0.0, Monocyte Dist Width 18.61 H & H 04/28/23 Range/Units 13:20 Hgb 11.5 L (13.0-17.0) g/dL Hct 34.8 L (38.8-50.0) % Coagulation 04/28/23 Range/Units 13:20 INR 1.0 All other labs are normal. Imaging & Diagnostic Results Imaging/Diagnostics: XRAY ([facility] 04/28/2023) Right FEMUR/RIGHT HIP/PELVIS: AP of the [...] <Electronically signed by Ashwini Conrad MD> 04/28/237 [facility] [facility] Work Phone: 1(517) 791-938910-18-2023 History and physical note Author Sushant Cordon [facility] April 28, 2023 5:40pm Note Date/Time April 28, 2023 5 :40pm [facility] [address] [place] [address] Hospitalist H&P Signed Patient: Manolo Vickers MR#: [id number] : 1935 Acct:[id number] Age/Sex: 88 / M Adm Date: 3 Loc: 4N Room: 1A8797-4 Type: ADM IN Attending Dr: Sushant Cordon DO Copies to: DO Marie Cooper Khoi CastroDO~ HPI DATE OF EXAMINATION: 04/28/23 CHIEF COMPLAINT: [...] for a total pancreatectomy performed at the [facility] in [facility] about 3 years ago. This was done [...] had what sounds like an EGD in [place] about 15 months ago with what sounds like some gastritis. Otherwise his past medical history seems to include prostate hypertrophy. Social history: He does smoke a cigar daily after dinner. In the past he smoked0.25 of a pack per day of cigarettes. He does drink wine daily with dinner. Heis mainly retired from [employer] here in [place]. He has continued to do other jobsever since his residential. Family history: A sister of an unspecified cancer. Another sibling ofwhat sounds like acute leukemia. Review of Systems Review of Systems Review of systems: 10 systems are reviewed and are negative except as mentioned elsewhere in the documentation. [facility] Medical History (Updated 04/28/23 @ [...] unit subcut HS 04/28/23 [History Confirmed 04/28/23] wiqpcf-cgnjqcna-gldhjfu 24,000-76,000-120,000 unit capsule,delayed rel (Creon) 2cap PO [...] % (Auto) 14.8 % (.) 04/28/23 13:20 Merrick % (Auto) 9.3 % (.) 04/28/23 13:20 Eos % (Auto) 0.5 % (.) 04/28/23 13:20 Baso % (Auto) 0.4 % (.) 04/28/23 13:20 Nucleat RBC Rel Count 0.1 /100 WBC (0-0.5) 04/28/23 13:20 Neut # (Auto) 7.3 x10E3/uL (1.8-7.7) 04/28/23 13:20 Lymph # (Auto) 1.4 x10E3/uL (1.00-4.8) 04/28/23 13:20 Merrick # (Auto) 0.9 x10E3/uL (0.0-0.8) H 04/28/23 [...] pH 6.5 (5.0-9.0) 04/28/23 15:00 Ur Specific Marquette 1.009 (1.001-1.030) 04/28/23 15:00 Urine Protein Negative [...] did order an echocardiogram but the echocardiogram technician submarine cable equipment has likely gone home for the day. [...] 1725 Signed By: <Electronically signed by Sushant Cordon DO> 04/28/23 1740 [facility] Work Phone: 1(757) 563-935610-01-2023 Chief complaint+Reason for visit Narrative * Chief [...] pylori ulcer Helicobacter pylori (H. pylori) Hypertension [id number] Stomach ulcer [facility] Work Phone: 1(946) 466-609806-29-2022 History of Present illness Narrative* Courtney Singh - 01/07/2022 12:25 PM EDT CLINICAL PHARMACY NOTE: MEDS TO BEDS Total # of Prescriptions Filled: 3 The following medications were delivered to the patient: Sucralfate susp Amlodipine Pantoprazole Additional Documentation: Pharmacy dispensed all we had of the Sucralfate susp- will transfer the rest to the [facility] in [place], [place] $8.61 collected via clover * Jose [...] 245 BMP: Recent Labs 01/03/22 1436 01/03/22 20501/04/22 0150 NA 136 135 136 K 3.9 4.2 4.5 CL 103 102 104 CO2 21 21 21 BUN 28* 29* 29* CREATININE 0.93 0.88 0.83 GLUCOSE 155* 74 71 COAGS: Recent Labs 01/02/22 185 PROT 6.4 INR 1.2 Viki Donovan, DO [...] 01/03/2022 3:25 PM EDT Occupational Therapy Facility/Department: [address] [facility] Therapy Initial Assessment Name: Manolo Vickers : 1935 Date of Service: 01/03/2022 Chief Complaint Patient presents with Abdominal Pain ulcer Discharge Recommendations: Patient would benefit from continued therapy after discharge OT Equipment Recommendations Equipment Needed: Yes Mobility Devices: ADL Assistive Devices ADL Assistive Devices: Construction Project Manager;Long-handled Sponge;Long-handled Shoe Horn;Sock- Aid Hard;Grab Bars -shower [...] Ambulation Assistance: Independent Transfer Assistance: Independent Active Roaster Helper: Yes Mode of Transportation: groopify Occupation: Retired Type of Occupation: Reports he has retired 4-5 times. Works on [employer] sometimes now debo wants. [employer]. Use to work for [employer]. Leisure & Hobbies: Golfing Additional Comments: 3-4 [...] AROM: WFL Hand Dominance Hand Dominance: Right [facility] Score [facility] Inpatient Daily Activity Raw Score: 19 (01/03/22 1525) [facility] Inpatient ADL T-Scale Score : 40.22 (01/03/22 1525) ADL Inpatient [facility] 0-100% Score: 42.8 (01/03/22 1525) ADL Inpatient [facility] G-Code Modifier : CK (01/03/22 152) Goals Short Term Goals Time Frame for [...] 01/03/2022 12:40 PM EDT Physical Therapy Facility/Department: [address] [facility] Physical Therapy Initial Assessment Name: [...] Ambulation Assistance: Independent Transfer Assistance: Independent Active Roaster Helper: Yes Mode of Transportation: [facility] Occupation: Retired Type of Occupation: Reports he has retired 4-5 times. 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 Pt did not have any belongings transferred with him from the OR. [facility] Work Phone: chief complaint+Reason for visit Narrative* Chief Complaint bp check I25.10 E61.1,K92.2 2 weeks bp 6 weeks evaluation for ICD evaluation for ICD HFC BP WITH ORTHO Cardiomyopathy Reason for Visit Iron deficiency Ischemic cardiomyopathy Ischemic cardiomyopathy Ischemic cardiomyopathy Acute GI bleeding Ischemic cardiomyopathy [id number] Sinus bradycardia H pylori ulcer Iron deficiency Ischemic cardiomyopathy [id number] Ischemic cardiomyopathy [facility] Work Phone: Consult note Author Tru Briceno [facility] May 03, 2023 3:17pm Note Date/Time May 03, 2023 2 :59pm [facility] [address] [place] [address] Physiatry (Rehab) Consult Note Signed Patient: Manolo Vickers MR#: [id number] : 1935 Acct:[id number] Age/Sex: 88 / M Adm Date: 3 Loc: 4N Room: [address] [place] [address] Type: ADM IN Attending Dr: Humberto Diaz MD Copies to: MD Humberto Mendieta MD Robert J Vaschak, DO~ Etiologic Dx/Impairment Group Narrative Narrative: 08.11 HPI Consult Date: 05/03/23 Requesting Physician: Humberto Diaz MD Primary Care Provider: Marie Vaschak, DO Consult Narrative Reason for consult: hip [...] negative unless noted below or in HPI [facility] Medical History BPH (benign prostatic [...] unit subcut HS 04/28/23 [History Confirmed 04/28/23] llljgr-okuloirm-jekxtbi 24,000-76,000-120,000 unit capsule,delayed rel (Creon) 2cap PO [...] bisacodyl 10 mg rectal suppository 10 mg TN DAILY PRN Constipation #0 ea 05/03/23 [Rx] [...] Code(s): I25.10 - Atherosclerotic heart disease of circle coronary artery without angina pectoris Status: Acute [...] at least 3 times weekly encounters with marine diver for medical management and for plan of care review / changes. Plan: I completed a substantive portion of this encounter, the medical decision making portion of this note in its entirety, including Allied health note review, nursing note review, wellness consultant note review, discussion with nursing and case management, and more than 50% of my time was spent on counseling and coordination of care, time spent 65 minutes Patient was personally seen by me, Dr. Briceno, on the day of encounter, reviewed the history and the relevant portions of the chart, including current orders, allied health and wellness consultant notes, labs/imaging and performed smyth elements of exam and I formulated the plan of care and facilitated the medical decision making. Documented By: Tru Briceno MD 05/03/23 9426 Signed By: <Electronically signed by Tru Briceno MD> 05/03/23 7314 [facility] Work Phone: Consult note Author Chuck Velasco [facility] Note Date/Time July 17, 2024 4: 52pm [facility] [address] [place] [address] Cardiology Consult Note Signed Patient: Manolo Vickers MR#: [id number] : 1935 Acct:[id number] Age/Sex: 89 / M Adm Date: 5 Loc: Room: [address] [place] [address] Type: ADM INOo Attending Dr: Lisa Hidalgo [...] negative unless noted below or in HPI [facility] Medical History Type 1 diabetes mellitus CAD (coronary artery disease) Former smoker BPH (benign prostatic hyperplasia) Urinary frequency Cardiomyopathy wearing external defib Coronary artery disease involving circle coronary artery of circle heart withoutangina pectoris GI bleeding Dupuytren's contracture [...] days #30 tabs 05/07/23 [Rx Confirmed 07/16/24] ikmajx-rktymkiv-yyazkqo 24,000-76,000-120,000 unit capsule,delayed rel (Creon) 2cap PO [...] tab PO DAILY 10/26/23 [History Confirmed 07/16/24] ehmhlo-epmciave-uawhkfg 24,000-76,000-120,000 unit capsule,delayed rel (Creon) 1cap PO [...] # (Auto) N/A Lymph # (Auto) N/A Merrick # (Auto) N/A Eos # (Auto) N/A [...] Code(s): I25.10 - Atherosclerotic heart disease of circle coronary artery without angina pectoris (4) S/P [...] H/o PUD, BPH, Anxiety, depression. Current smoker. [facility] 04/30/23 - Two-vessel coronary artery disease- 100% prox LAD occlusion; 80% D1; LCx has 50% prox stenosis with 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 Echo 04/28/23 - EF 40-45%, mild LVH, trace MR and TR. [facility] 07/16/22 - Successful PCI ostial/proximal LAD-diagonal branch; true ASSOCIATE CREATIVE DIRECTOR proximal/mid LAD (attempted wiring with balloon). ECHO in January [address] [facility]: EF 30-35% ECHO 03/09/2024: ECHO which showed [...] call with any questions. Follow up with [facility] Cardiology as scheduled. Documented By: Chuck Velasco MD 01/03 2417 Signed By: <Electronically signed by Chuck Velasco MD> 07/17/24 0553 [facility] Work Phone: Discharge summary Author Humberto Diaz [facility] May 03, 2023 2:54pm Note Date/Time May 03, 2023 2 :39pm [facility] [address] [place] [address] Discharge Summary Signed Patient: Manolo Vickers MR#: [id number] : 1935 Acct:[id number] Age/Sex: 88 / M Adm Date: 3 Loc: Room: [address] [place] [address]: Humberto Diaz MD Copies to: [...] Discharge Plan Discharge Plan Patient Disposition: Rehab [facility] Diet: Diabetic Additional Instructions: Rehab to manage: [...] high armed straight-backed chair. 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 -Continue to use walker or [...] OTHER -Any problems- Call the office at [phone] or return to Emergency Room. -If you are having excessive or persistent pain, swelling, fever (oral temp >101), yellow-green foul smelling drainage or bleeding from incision, excessive redness of incision, nausea, vomiting, or any other problems, you should first call your surgeon at [phone] for advice. If you are unable to [...] 0RF bisacodyl 10 mg Suppository 10 mg TN DAILY PRN (Reason: Constipation) Qty: 0 0RF [...] (call at discharge from Rehab to see Supervisor [employer] for future ANGIOPLASTY PROCEDURE) Marie Castro DO [...] signed by Humberto Diaz MD> 05/03/23 1454 [facility] Work Phone: [place] [address] Discharge Summary Signed Patient: Manolo Vickers MR#: [id number] : 1935 Acct:[id number] Age/Sex: 89 / M Adm Date: 5 Loc: Room: [address] [place] [address]: Lisa Hidalgo MD Copies to: [...] homeas disposition. Cardiology consulted, recommended to follow: [facility] 04/30/23 - Two-vessel coronary artery disease- 100% prox LAD occlusion; 80% D1; LCx has 50% prox stenosis with 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 Echo 04/28/23 - EF 40-45%, mild LVH, trace MR and TR. [facility] 07/16/22 - Successful PCI ostial/proximal LAD-diagonal branch; true ASSOCIATE CREATIVE DIRECTOR proximal/mid LAD (attempted wiring with balloon). ECHO in January [address] [facility]: EF 30-35% ECHO 03/09/2024: ECHO which showed [...] call with any questions. Follow up with [facility] Cardiology as scheduled. Patient was cleared [...] Lisa Hidalgo MD 07/18/241899 Signed By: 07/18/241901 [facility] Author Lisa Hidalgo [facility] Note Date/Time July 18, 2024 7: 02pm [facility] [address] [place] [address] Discharge Summary Signed Patient: Manolo Vickers MR#: [id number] : 1935 Acct:[id number] Age/Sex: 89 / M Adm Date: 5 Loc: Room: 6K4128-[address]: Lisa Hidalgo MD Copies to: [...] homeas disposition. Cardiology consulted, recommended to follow: [facility] 04/30/23 - Two-vessel coronary artery disease- 100% prox LAD occlusion; 80% D1; LCx has 50% prox stenosis with 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 Echo 04/28/23 - EF 40-45%, mild LVH, trace MR and TR. [facility] 07/16/22 - Successful PCI ostial/proximal LAD-diagonal branch; true ASSOCIATE CREATIVE DIRECTOR proximal/mid LAD (attempted wiring with balloon). ECHO in January [address] [facility]: EF 30-35% ECHO 03/09/2024: ECHO which showed [...] call with any questions. Follow up with [facility] Cardiology as scheduled. Patient was cleared [...] signed by Lisa Hidalgo MD> 07/18/24 190 [facility] Work Phone: Evaluation note* Diagnosis [...] uncontrolled, or unspecified documented in this encounter [facility] Work Phone: evaluation note* Diagnosis Onset Date Resolution Status Abnormal EKG acute Closed intertrochanteric fracture of right hip acute Elevated troponin acute [facility] Work Phone: Evaluation note* Diagnosis Onset Date Resolution Status Abnormal EKG acute Closed intertrochanteric fracture of right hip acute Diabetes acute Elevated troponin acute Impaired mobility and activities of daily living acute Mild left ventricular systolic dysfunction (LVSD) acute Nonsustained monomorphic ventricular tachycardia acute Postoperative pain, acute, hip acute Two-vessel coronary artery disease acute [facility] Work Phone: evaluation note* Diagnosis [...] artery disease acute Uncontrolled diabetes mellitus acute [facility] Work Phone: Evaluation note* Diagnosis NSTEMI (non-ST elevated myocardial infarction) ([facility])- Primary Acute myocardial infarction, subendocardial infarction, episode of care unspecified Abnormal stress test Other nonspecific abnormal cardiovascular system function study ASHD (arteriosclerotic heart disease) Coronary atherosclerosis of unspecified type of vessel, circle or graft Essential hypertension Unspecified essential hypertension Diabetes mellitus type II, non insulin dependent ([facility]) Type II or unspecified type diabetes mellitus without mention of complication, not stated as uncontrolled Closed fracture of right hip, initial encounter ([facility]) documented in this encounter [facility] Work Phone: Evaluation noteNo InformationNouniversity health [facility] [email or web address] Other Evaluation note* Diagnosis Onset Date Resolution Status Diabetes acute CAD (coronary artery disease) acute Diabetes acute [facility] Work Phone: Evaluation note* Diagnosis Cardiomyopathy, ischemic- Primary Other specified forms of chronic ischemic heart disease ASHD (arteriosclerotic heart disease) Coronary atherosclerosis of unspecified type of vessel, circle or graft BMI 20.0-20.9, adult Orthopnea documented in this encounter [facility] Work Phone: Evaluation noteNo assessment information available [facility] Work Phone: Evaluation note* Diagnosis Onset Date Resolution Status Fracture of C5 vertebra, closed acute Vertebral fracture, closed a cute Barretts esophagus acute H pylori ulcer acute [facility] Work Phone: Evaluation note* Diagnosis Onset Date Resolution Status Acute electrocardiogram changes acute Acute GI bleeding acute Elevated troponin acute GI bleeding acute [facility] Work Phone: Evaluation note* Diagnosis Onset Date Resolution Status Acute electrocardiogram changes acute Acute GI bleeding acute CAD (coronary artery disease) acute [id number] acute Elevated troponin acute GI bleeding acute History of pancreatectomy ac felicia Hypertension acute S/P PTCA (percutaneous trans luminal coronary angioplasty) acute Type 1 diabetes mellitus acu te [facility] Work Phone: Evaluation note* Diagnosis Onset Date Resolution Status Acute electrocardiogram changes resolved Acute GI bleeding resolved Elevated troponin resolved Ischemic cardiomyopathy acut e Acute GI bleeding resolved [facility] Work Phone: Evaluation note* Diagnosis Onset Date Resolution Status Acute electrocardiogram changes resolved Acute GI bleeding resolved Elevated troponin resolved Ischemic cardiomyopathy acut e Acute GI bleeding resolved Iron deficiency acute Ischemic cardiomyopathy acut e [facility] Work Phone: Evaluation note* Diagnosis Onset Date Resolution Status Acute electrocardiogram changes resolved Acute GI bleeding resolved Elevated troponin resolved Ischemic cardiomyopathy acut e Acute GI bleeding resolved Iron deficiency acute Ischemic cardiomyopathy acut e Ischemic cardiomyopathy acut e Ischemic cardiomyopathy acut e Acute GI bleeding resolved [facility] Work Phone: Evaluation note* Diagnosis 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 (CMS/HCC) Pancreatic insufficiency (CMS/HCC)- Primary Other specified disease of pancreas Coronary arteriosclerosis (CMS/HCC) Coronary atherosclerosis of unspecified type of vessel, circle or graft 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 (CMS/HCC) 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) H pylori ulcer Chronic ulcer of unspecified site documented in this encounter [facility]* Diagnosis Diabetes mellitus secondary [...] heart failure (CMS/HCC) documented in this encounter [facility] Healthcare[facility] note* Diagnosis 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 (CMS/HCC) ICD (implantable cardioverter-defibrillator) in place- Primary Hospital discharge follow-up Other follow-up examination 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 (CMS/HCC) Coronary atherosclerosis of unspecified type of vessel, circle or graft Insulin pump in place Insulin pump status 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) Moderate pulmonary arterial systolic hypertension (CMS/HCC) Nonrheumatic mitral valve regurgitation Chronic systolic CHF (congestive heart failure), NYHA class 2 (CMS/HCC) documented in this encounter [facility]* Diagnosis 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 (CMS/HCC) Abdominal wall abscess- Primary Cellulitis and abscess of trunk documented in this encounter [facility]* Diagnosis 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, with long-term current use of insulin (HCC)- Primary 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) Insulin pump status [facility] 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 (CMS/HCC) Abscess of abdominal wall- Primary Cellulitis and abscess of trunk 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) Chronic systolic CHF (congestive heart failure), NYHA class 2 (CMS/HCC) Acquired total absence of pancreas documented in this encounter [facility]* Diagnosis 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 (CMS/HCC) Abdominal wall abscess- Primary Cellulitis and abscess of trunk documented in this encounter [facility]* Diagnosis 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 (CMS/HCC) Chronic systolic CHF (congestive heart failure), NYHA class 2 (CMS/HCC)- Primary Pancreatic insufficiency (CMS/HCC) Other specified disease of pancreas History of bleeding peptic ulcer Coronary arteriosclerosis (CMS/HCC) Coronary atherosclerosis of unspecified type of vessel, circle or graft 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) Orthostatic hypotension Bronchitis Bronchitis, not specified as acute or chronic documented in this encounter [facility]* Diagnosis 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, with long-term current use of insulin (HCC)- Primary [facility] Diabetes mellitus secondary to pancreatic [...] disease of pancreas documented in this encounter [facility]* Diagnosis 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, with long-term current use of insulin (HCC)- Primary [facility] Diagnosis 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, with long-term current use of insulin (HCC)- Primary 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) Insulin pump status Insulin pump titration Fitting and adjustment of insulin pump [facility] Diagnosis 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, with long-term current use of insulin (HCC) [facility] Diagnosis 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, with long-term current use of insulin (HCC)- Primary 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) Insulin pump status Insulin pump titration Fitting and adjustment of insulin pump [facility] Diagnosis 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, with long-term current use of insulin (HCC)- Primary [facility] Diagnosis 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, with long-term current use of insulin (HCC) [facility] Diagnosis 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, with long-term current use of insulin (HCC) [facility] Diagnosis 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 Type 1 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 (HCC) Pancreatic insufficiency (HCC)- Primary Other specified disease of pancreas Pleurisy Pleurisy without mention of effusion or current tuberculosis Pleurisy Pleurisy without mention of effusion or current tuberculosis documented in this encounter [facility] Diagnosis 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, with long-term current use of insulin (HCC)- Primary [facility] Diagnosis 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, with long-term current use of insulin (HCC)- Primary documented in this encounter [facility]* Diagnosis Onset Date Resolution Status Admit Date Ischemic cardiomyopathy acute S eptember 2024 9:54am Type 1 diabetes mellitus acute March 27, 2025 9:54am Acute GI bleeding resolved Sept er 2024 9:54am Coronary artery disease involving circle coronary artery of circle heart wi inactive 2024 9:54am Hypertension inactive March 272024 9:54am S/P PTCA (percutaneous transluminal coronary angioplasty) inactive March 27, 2025 9:54am [facility] Work Phone: History and physical note Author Indra Guillory [facility] Note Date/Time July 17, 2024 1: 48am [facility] [address] [place] [address] Hospitalist H&P Signed Patient: Manolo Vickers MR#: [id number] : 1935 Acct:[id number] Age/Sex: 89 / M Adm Date: 5 Loc: Room: [address] [place] [address] Type: ADM INOo Attending Dr: Indra Guillory [...] that which is noted above in HPI [facility] Medical History Type 1 diabetes mellitus CAD (coronary artery disease) Former smoker BPH (benign prostatic hyperplasia) Urinary frequency Cardiomyopathy wearing external defib Coronary artery disease involving circle coronary artery of circle heart withoutangina pectoris GI bleeding Dupuytren's contracture [...] and weight loss History of back surgery 1986 H/O heart artery stent History of repair [...] days #30 tabs 05/07/23 [Rx Confirmed 07/16/24] gmbrsx-xrwmfhur-wckwqtr 24,000-76,000-120,000 unit capsule,delayed rel (Creon) 2cap PO [...] tab PO DAILY 10/26/23 [History Confirmed 07/16/24] xiwmam-rjhgujou-fdshbqn 24,000-76,000-120,000 unit capsule,delayed rel (Creon) 1cap PO [...] 07/16/24 12:30 MCHC 32.5 g/dL (32.5-35.6) 07/16/24 12: RDW 19.9 % (12.0-14.8) H 07/16/24 12:30 Plt Count 210 x10E3/uL (150-450) 07/16/24 12: MPV 10.9 fl (6.6-10.1) H 07/16/24 12:30 Neut % (Auto) 64.8 % (.) 07/16/24 12:30 Lymph % (Auto) 18.9 % (.) 07/16/24 12:30 Merrick % (Auto) 12.8 % (.) 07/16/24 12:30 Eos % (Auto) 2.7 % (.) 07/16/24 12:30 Baso % (Auto) 0.8 % (.) 07/16/24 12:30 Nucleat RBC Rel Count 0.2 /100 WBC (0-0.5) 07/16/24 12:30 Neut # (Auto) 4.7 x10E3/uL (1.8-7.7) 07/16/24 12:30 Lymph # (Auto) 1.4 x10E3/uL (1.00-4.8) 07/16/24 12:30 Merrick # (Auto) 0.9 x10E3/uL (0.0-0.8) H 07/16/24 [...] 2 Documented By: Indra Guillory MD 5 [id number] Signed By: <Electronically signed by Indra Guillory MD> 07/17/24 0148 [facility] Work Phone: History general Narrative - Reported* Type Description Date Medical History stage 1 diabetes Surgical History pancreas and spleen removal Surgical History back surgery Surgical History tonsilectomy Surgical History HIP TFN Short 2022 [employer] Other Hospital Discharge instructions* Instructions* Viki Donovan [...] scheduled appointment, please call the office at [phone]. Call Your Doctor If Any of the [...] through Care Everywhere. * [facility] (Danish[facility] [employer] Work Phone: Hospital Discharge instructions Additional Instructions [...] -Dietary supplement: Glucerna 1 container twice a day.[facility] Work Phone: Hospital Discharge instructions Additional [...] doctor or pharmacist, without first calling the emergency vehicle technician who implanted the stent. If you require [...] weight lifting, stair steppers, etc. until the emergency vehicle technician approves these activities. Check with the emergency vehicle technician on your first follow-up visit. CALL YOUR PHYSICIAN at [phone]: -If bleeding should occur from the catheter insertion site- apply pressure to the site then immediately call us. -Report any fever, redness, drainage, increased swelling, or firmness at the catheter insertion site. Some bruising or slight swelling may be present at the time of discharge. -Should arm or leg become cold, numb, white, or blue, contact the emergency vehicle technician immediately. -IF you should experience episodes of [...] is recommended. Please call Central Scheduling at [phone] to schedule your appointment.] The attending emergency vehicle technician or [facility] nurse clinician should provide you with specific instructions regarding activity, diet, medications, and further follow up for you. Follow the medication instructions provided on your discharge. If the dosages and instructions on this sheet differ from the dosage and instructions on the bottle, follow the instructions on the bottle. [facility] is not responsible for incorrect prescription information provided by the patient during their visit. Do not stop your medications without consulting your health care provider. Please take the list with you to your next doctor's appointment.[facility] Work Phone: Hospital Discharge instructionsAmbulatory Orders* Referral to Cardiac Rehab Location: None Selected [facility] Work Phone: Progress note Author Anat Perez [facility] February 08, 2024 2:07pm Note Date/Time February 08, 2024 2:04 pm [facility] [address] [place] [address] Cardiology Progress Note Signed Patient: Manolo Vickers MR#: [id number] : 1935 Acct:[id number] Age/Sex: 88 / M Adm Date: 4 Loc: 3T Room: [address] [place] [address] Type: ADM IN Attending Dr: Warren Gross [...] MPV Neut % (Auto) Lymph % (Auto) Merrick % (Auto) Eos % (Auto) Baso % (Auto) Nucleat RBC Rel Count Neut # (Auto) Lymph # (Auto) Merrick # (Auto) Eos # (Auto) Baso # [...] % (Auto) 51.7 Lymph % (Auto) 22.3 Merrick % (Auto) 17.6 Eos % (Auto) 7.1 Baso % (Auto) 1.3 Nucleat RBC Rel Count 0.2 Neut # (Auto) 3.0 Lymph # (Auto) 1.3 Merrick # (Auto) 1.0 H Eos # (Auto) 0.4 Baso # (Auto) 0.1 PHA Creatinine Clear 58.45 Sodium 135 L Potassium 4.4 Chloride 102 Carbon Dioxide 29.6 Anion Gap 7.8 BUN 24 Creatinine 0.82 Est GFR (CKD-EPI) > 60.0 Glucose 320 H D POC Glucose 365 POC Glucose Comment Will notify dr/rn Calcium 8.1 L Magnesium 1.8 L 02/08/24 11:23 Corrected WBC Uncorrected WBC Count RBC Hgb Hct MCV MCH MCHC RDW Plt Count MPV Neut % (Auto) Lymph % (Auto) Merrick % (Auto) Eos % (Auto) Baso % (Auto) Nucleat RBC Rel Count Neut # (Auto) Lymph # (Auto) Merrick # (Auto) Eos # (Auto) Baso # (Auto) PHA Creatinine Clear Sodium Potassium Chloride Carbon Dioxide Anion Gap BUN Creatinine Est GFR (CKD-EPI) Glucose POC Glucose 382 POC Glucose Comment Calcium Magnesium A&P - Cardiology (1) Acute GI bleeding: Code(s): K92.2 - Gastrointestinal hemorrhage, unspecified (2) Elevated troponin: Code(s): R79.89 - Other specified abnormal findings of blood chemistry (3) Coronary artery disease involving circle coronary artery of circle heart without angina pectoris: Code(s): I25.10 - Atherosclerotic heart disease of circle coronary artery without angina pectoris (4) S/P PTCA (percutaneous transluminal coronary angioplasty): Code(s): Z98.61 - Coronary angioplasty status Plan # Acute recurrent GI Bleed in setting of known PUD (recent EGD on 09/01/23 found a 2 cm ulcer with a nonbleeding visible vessel at the bulb of the duodenum). # CAD s/p PCI in Jul 2023. # Ischemic Cardiomyopathy s/p LifeVest ordered in [place] - Well compensated. # Non-ACS myocardial injury - Is due to demand-supply mismatch 2/2 acute anemia. 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 Current smoker. [facility] 04/30/23 - Two-vessel coronary artery disease- 100% prox LAD occlusion; 80% D1; LCx has 50% prox stenosis with 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 Echo 04/28/24 - EF 40-45%, mild LVH, trace MR and TR. [facility] 07/16/22 - Successful PCI ostial/proximal LAD-diagonal branch; true ASSOCIATE CREATIVE DIRECTOR proximal/mid LAD (attempted wiring with balloon). EKG 09/07/23 - sinus peace 56 bpm, anterolateral TWI. EKG 09/08/23 - sinus peace 58 bpm, anterolateral and inferior TWI. - Pt is currently 6 months out from PCI. Plavix stopped. Continue ASA 81mg dailyand monitor Hb - Reviewed records from recent hospitalization at [facility] in [place]. He was hospitalized for NSTEMI and PNA. [...] PO 20mg daily. - Follow up with [facility] cardiology as scheduled on 03/02/24. Will plan on repeat ECHO 3 months after being on maximally tolerated GDMT to determine need for ICD. - Cardiology will sign off. Please call with questions. Documented By: Anat Perez MD 02/08/24 2538 Signed By: <Electronically signed by Anat Perez MD> 02/08/24 140 [facility] Work Phone: Progress note Author Chuck Velasco [facility] Note Date/Time May 25, 2024 10:41am [facility] [address] [place], [place] [id number] Cardiology Progress Note Signed Patient: Manolo Vickers MR#: [id number] : 1935 Acct:[id number] Age/Sex: 89 / M Adm Date: 4 Loc: 4 Room: [address] [place] [address] Type: ADM IN Attending Dr: Abdulaziz Root [...] signed by Chuck Velasco MD> 05/25/24 1041 [facility] Work Phone: Reason for referral (narrative)* Consultation (Routine) - Authorized Specialty Diagnoses / Procedures Referred By Contac t Referred To Contact Cardiology Diagnoses Abnormal stress test ASHD (arteriosclerotic heart disease) NSTEMI (non-ST elevated myocardial infarction) ([facility]) Procedures Follow Up In Cardiology Govind Davis DO [address] [facility] [address] [place] [address] Govind Davis DO [address] [facility] [address] [place] [address] Referral ID Status Reason Start Date Expiration Date V isits Requested Visits Authorized [id number] Authorized 05/25/2023 05/24/2024 1 1 * Cardiovascular (Routine) - Pending Review Specialty Diagnoses / Procedures Referred By Corbin t Referred To Contact Diagnoses Abnormal stress test ASHD (arteriosclerotic heart disease) Procedures ECG 12 Lead Govind Davis DO [address] [facility] [address] [place] [address] Referral ID Status Reason Start Date Expiration Date V isits Requested Visits Authorized [id number] Pending Review 05/25/2023 05/24/2024 1 1 [facility] Work Phone: Reason for referral (narrative)No reason for referral [facility] Work Phone: Advance Directives No Advanced Directives Records FoundLatest [...] Activated Date Inactivated Comments 04/26/2024 7:43 AM Summary Purpose Family History No Family History [...] Unknown son Sarcoma Unknown sister Leukemia Unknown Chief Complaint and Reason for Visit Chief [...] Acute GI bleeding CAD (coronary artery disease) [id number] Elevated troponin GI bleeding History of pancreatectomy Hypertension S/P PTCA (percutaneous transluminal coronary angioplasty) Type 1 diabetes mellitus Chief Complaint Dizziness Dizziness Dizziness K92.2 Reason for Visit Acute electrocardiog jose changes Acute GI bleeding CAD (coronary artery disease) [id number] Elevated troponin GI bleeding History of pancreatectomy Hypertension S/P PTCA (percutaneous transluminal coronary angioplasty) Type 1 diabetes mellitus Chief Complaint Dizziness Dizziness Dizziness K92.2 K92.2 Reason for Visit Acute electrocardiog jose changes Acute GI bleeding CAD (coronary artery disease) [id number] Elevated troponin GI bleeding History of pancreatectomy Hypertension S/P PTCA (percutaneous transluminal coronary angioplasty) Type 1 diabetes mellitus Chief Complaint Dizziness Dizziness Dizziness K92.2 K92.2 [facility] 02/06 Reason for Visit Acute electrocardiog jose changes Acute GI bleeding CAD (coronary artery disease) [id number] Elevated troponin GI bleeding History of pancreatectomy Hypertension S/P PTCA (percutaneous transluminal coronary angioplasty) Type 1 diabetes mellitus Chief Complaint Dizziness Dizziness Dizziness K92.2 K92.2 [facility] 02/06 k92.2 d50.9 r00.1 Reason for Visit Acute electrocardiog jose changes Acute GI bleeding Elevated troponin Ischemic cardiomyopathy Acute GI bleeding Chief Complaint Dizziness Dizziness Dizziness K92.2 K92.2 [facility] 02/06 r00.1 k92.2 d50.9 r00.1 bp check Reason for Visit Acute electrocardiog jose changes Acute GI bleeding Elevated troponin Ischemic cardiomyopathy Acute GI bleeding Chief Complaint Dizziness Dizziness Dizziness K92.2 K92.2 [facility] 02/06 r00.1 k92.2 d50.9 r00.1 bp check E61.1,K92.2 I25.10 Reason for Visit Acute electrocardiog jose changes Acute GI bleeding Elevated troponin Ischemic cardiomyopathy Acute GI bleeding Iron deficiency Ischemic cardiomyopathy Chief Complaint Dizziness Dizziness Dizziness K92.2 K92.2 [facility] 02/06 r00.1 k92.2 d50.9 r00.1 bp check I25.10 E61.1,K92.2 Reason for Visit Acute electrocardiog jose changes Acute GI bleeding Elevated troponin Ischemic cardiomyopathy Acute GI bleeding Iron deficiency Ischemic cardiomyopathy Chief Complaint Dizziness Dizziness Dizziness K92.2 K92.2 [facility] 02/06 r00.1 k92.2 d50.9 r00.1 bp check I25.10 E61.1,K92.2 2 weeks bp Reason for Visit Acute electrocardiog jose changes Acute GI bleeding Elevated troponin Ischemic cardiomyopathy Acute GI bleeding Iron deficiency Ischemic cardiomyopathy Chief Complaint Dizziness Dizziness Dizziness K92.2 K92.2 [facility] 02/06 r00.1 k92.2 d50.9 r00.1 bp check I25.10 E61.1,K92.2 2 weeks bp 6 weeks Reason for Visit Acute electrocardiog jose changes Acute GI bleeding Elevated troponin Ischemic cardiomyopathy Acute GI bleeding Iron deficiency Ischemic cardiomyopathy Ischemic cardiomyopathy Ischemic cardiomyopathy Acute GI bleeding Chief Complaint Dizziness Dizziness Dizziness K92.2 K92.2 [facility] 02/06 r00.1 k92.2 d50.9 r00.1 bp check I25.10 E61.1,K92.2 2 weeks bp 6 weeks evaluation for ICD evaluation for ICD Reason for Visit Acute electrocardiog jose changes Acute GI bleeding Elevated troponin Ischemic cardiomyopathy Acute GI bleeding Iron deficiency Ischemic cardiomyopathy Ischemic cardiomyopathy Ischemic cardiomyopathy Acute GI bleeding Chief Complaint Dizziness Dizziness Dizziness K92.2 K92.2 [facility] 02/06 r00.1 k92.2 d50.9 r00.1 bp check I25.10 E61.1,K92.2 2 weeks bp 6 weeks evaluation for ICD evaluation for ICD HFC Reason for Visit Acute electrocardiog jose changes Acute GI bleeding Elevated troponin Ischemic cardiomyopathy Acute GI bleeding Iron deficiency Ischemic cardiomyopathy Ischemic cardiomyopathy Ischemic cardiomyopathy Acute GI bleeding Chief Complaint Dizziness Dizziness Dizziness K92.2 K92.2 [facility] 02/06 r00.1 k92.2 d50.9 r00.1 bp check I25.10 E61.1,K92.2 2 weeks bp 6 weeks evaluation for ICD evaluation for ICD HFC Reason for Visit Acute electrocardiog jose changes Acute GI bleeding Elevated troponin Ischemic cardiomyopathy Acute GI bleeding Iron deficiency Ischemic cardiomyopathy Ischemic cardiomyopathy Ischemic cardiomyopathy Acute GI bleeding Ischemic cardiomyopathy [id number] Sinus bradycardia H pylori ulcer Iron deficiency Ischemic cardiomyopathy [id number] Chief Complaint K92.2 K92.2 [facility] 02/06 r00.1 k92.2 d50.9 r00.1 bp check I25.10 E61.1,K92.2 2 weeks bp 6 weeks evaluation for ICD evaluation for ICD HFC BP WITH ORTHO Reason for Visit Ischemic cardiomyopa thy Acute GI bleeding Iron deficiency Ischemic cardiomyopathy Ischemic cardiomyopathy Ischemic cardiomyopathy Acute GI bleeding Ischemic cardiomyopathy [id number] Sinus bradycardia H pylori ulcer Iron deficiency Ischemic cardiomyopathy [id number] Chief Complaint Admit Date bp check February [...] 2024 10:57am Coronary artery disease invo lving circle coronary artery of circle heart wi March 27, 2024 10:57am Hypertension [...] Ischemic cardiomyopathy May 24, 2 024 8:30pm Non-ST elevation myocardial infarction (NSTEMI), [...] 37pm I47.2 Z95.810 August 29, 2024 1:28pm [facility] 07/17August 31, 2024 9:56am Reason for Visit [...] 2024 9:56am Coronary artery disease invo lving circle coronary artery of circle heart wi August 31, 2024 9:56am Hypertension August 31, 2024 9:56am S/P PTCA (percutaneous transluminal mounika nary angioplasty) August 31, 2024 9:56am Chief Complaint Admit Date chest pain July 16, 2024 6: 08pm chest pain July 17, 2024 4: 37pm I47.2 Z95.810 August 29, 2024 1:28pm [facility] 07/17August 31, 2024 9:56am 6 weeks October [...] 2024 6 :08pm Ischemic cardiomyopathy August 31 9:56am Type 1 diabetes mellitus August 31, 2024 9:56am Acute GI bleeding August 31, 2024 9:56am Coronary artery disease invo lving circle coronary artery of circle heart wi August 31, 2024 9:56am Hypertension August 31, 2024 9:56am S/P PTCA (percutaneous transluminal mounika nary angioplasty) August 31, 2024 9:56am Ischemic cardiomyopathy October 13, 2024 9:10am Type 1 diabetes mellitus October 13, 2024 9:10am Acute GI bleeding October 13, 2024 9:10 am Coronary artery disease invo lving circle coronary artery of circle heart wi October 13, 2024 9:10am Hypertension [...] 9:10 am Coronary artery disease invo lving circle coronary artery of circle heart wi October 13, 2024 9:10am Hypertension [...] 2025 9:54am Coronary artery disease invo lving circle coronary artery of circle heart wi March 27, 2025 9:54am Hypertension March 27, 2025 9:54am S/P PTCA (percutaneous transluminal mounika nary angioplasty) March 27, 2025 9:54am Additional Source Comments Reason for Visit (unrecogniz ed section and content) Reason Comments Abdominal Pain ulcer Specialty Diagnoses / Procedures Referred By Corbin bradshaw Referred To Contact Diagnoses Acute gastric ulcer with perforation (HCC) Perforated viscus Delon Conn, DO [address] [place] [address] [facility] [address] [place] [address] Referral ID Status Reason Start Date Expiration Date Visits Re quested Visits Authorized [id number] 1 1 Reason Comments Hospital Follow-up [facility] 05/08/2023 Specialty Diagnoses / Procedures Referred By Corbin bradshaw Referred To Contact Diagnoses Abnormal stress test ASHD (arteriosclerotic heart disease) Procedures ECG 12 Lead Govind Davis, DO [address] [facility] [address] [place] [address] Referral ID Status Reason Start Date Expiration Date V isits Requested Visits Authorized [id number] Pending Review 05/25/2023 05/24/2024 1 1 Reason Comments Follow-up PCI Specialty Diagnoses / Procedures Referred By Corbin bradshaw Referred To Contact Cardiology Diagnoses ASHD (arteriosclerotic heart disease) Procedures Follow Up In Cardiology Sammy Wolff, GRAIN FARMWORKER-INTER COM INSTALLER [address] [place] [address] Referral ID Status Reason Start Date Expiration Date V isits Requested Visits Authorized [id number] Authorized 06/23/2023 06/22/2024 1 1 Reason Comments [...] area of the pacemaker. 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) Procedures OFFICE/OUTPATIENT NEW HIGH MDM 60 MINUTES [id number] (SNOMED CT) - AMB REFERRAL TO ENDOCRINOLOGY Stalin Alamo, KALANI [address] [place] [address] Madelyn Reese MD, PhD [address] [place] [address] Referral ID Status Reason Start Date Expiration Date V isits Requested Visits Authorized [id number] Pending Review 04/25/2024 10/22/2024 1 1 Reason [...] 400 mg, Oral, ONCE, 1 dose, On 01/07/22 at 1030 1218 (Given - Provider: Leatha [...] Queta Geiger, KARIN)2351 (Stopped - Provider: Queta Geiger, KARIN) 0506 (New Bag - Provider: Queta Geiger RN)0536 (Stopped - Provider: Courtney Yao RN)1104 (New Bag - Provider: Baljit Sage RN)1134 (Stopped - Provider: Baljit Sage, KARIN) pantoprazole (PROTONIX) 40 mg in sodium chloride (PF) 10 mL injection 40 mg, IntraVENous, EVERY 12 HOURS, First dose on Wed01/02/22 at 2300, Reconstitute with 10 mL 0.9 % sodium chloride and administer over at least 2 minutes. 1132 (Given - Provider: Baljit Sage RN)2300 (Given - Provider: Queta Geiger, KARIN) 1100 (Given - Provider: Baljit Sage RN)2355 (Given - Provider: Queta Geiger, KARIN) 0939 [...] Active Humberto Diaz MD Attending Provider Active Tur Briceno MD Other Provider Active Roll Builder Relationship Specialty Start Date End Date [address] [place] [address] PCP - General Internal Medicine 01/07/22 Team Status: Active Member Role Status Dates Marie Vaschak , DO Primary Care Provider Active Vinnie Rivas PA-C Emergency Provider Active Sushant Cordon , DO Admit Provider, Attending Pr sonyaer Active Team Status: Inactive Member Role Status Dates Marie Castro , DO Primary Care Provider Active Fredi Medrano MD Admit Provider, Attending Provider Active Lois Rios , RN Other Provider Active Kavya Velazquez , KARIN Other Provider Active Gay Angulo , RN Other Provider Active Buffy Hernandez , KARIN Other Provider Active Fransisca Bentley RN Other Provider Active Diamond Henry RN Other Provider Active Chris Holm MD Other Provider Active Vivian Zavala , GRAIN FARMWORKER Other Provider Active Samantha Wilson , DO Other Provider Active Eric Major MD Other Provider Active Sushant Cordon , DO Other Provider Active Audi Gaming MD Other Provider Active Cecily Keen MD Other Provider Active Nidia Wright , GRAIN FARMWORKER Other Provider Active Daniel Reyes MD Other Provider Active Roberto Sevilla MD Other Provider Active Humberto Diaz MD Other Provider Active Marzena Otto MD Other Provider Active Gray Gilliam , DO Other Provider Active Mc Cornejo MD Other Provider Active Raymundo Angeles MD Other Provider Active Marga Mccauley CAMPAIGN CONSULTANT-C Other Provider Active Indra Guillory MD Other Provider Active David Fonseca MD Other Provider Active Hai Aguilera MD Other Provider Active Esau Corrales MD Other Provider Active Leda Urena , DO Other Provider Active Guevara Mills , DO Other Provider Active Jose Roberto Felder , DO Other Provider Active Anat Marte , GRAIN FARMWORKER Other Provider Active Warren Gross , DO Other Provider Active Nayeli Jimenez MD Other Provider Active Nicole Wolff GRAIN FARMWORKER Other Provider Active Melisa Pimentel , GRAIN FARMWORKER Other Provider Active Vidya Robert MD Other Provider Active Howard Burrell MD Other Provider Active Jeevan John , DO Other Provider Active Rosario Murdock , GRAIN FARMWORKER Other Provider Active Mauricio Drake , DO Other Provider Active Erma Morillo , KARIN Other Provider Active Roll Builder Relationship Specialty Start Date End Date Marie Castro DO [address] [place] [address] PCP - General Internal Medicine 05/18/23 Team [...] Active Herminio Lakhani MD Attending Provider Active Roll Builder Relationship Specialty Start Date End Date Marie Castro DO [address] [place] [address] PCP - General Internal Medicine 05/18/23 Team [...] Member Role Status Dates Anat Perez MD Supervisor Mattress And Boxsprings Active Marie Castro DO Primary Care Provider Active Team Status: Inactive Member Role Status Dates Marie Castro DO Primary Care Provider Active Start: November 11, 2023 End: November 11, 2023 Alberto Shearer MD Attending Provider Active Start: November 11, 2023 End: November 11, 2023 Team Status: Active Member Role Status Denis [...] Yves Han MD Other Provider Active Start: 2023 Chuck Velasco MD Other Provider Active [...] Yves Han MD Other Provider Active Start: 2023 Chuck Velasco MD Attending Provider, Other Provider Active Start: February 06, 2024 Aant Perez MD Other Provider Active Start: February [...] March 27, 2024 End: March 27, 2024 Roll Builder Relationship Specialty Start Date End Date Marie Castro DO [address] [place] [address] PCP - General Internal Medicine 01/08/23 Marie Castro DO [address] [place] [address] PCP - ACO Reach 09/10/23 Patrick Beard MD 1 [facility] [address] [place] [address] Referring Physician Gastroenterology 04/17/24 Andrey Grullon MD [address] [place] [address] Referring Physician Neurology 04/17/24 Saúl Davis MD 703 [facility] [address] [place] [address] Referring Physician Cardiology 04/17/24 Team Status: Active [...] April 26, 2024 End: April 26, 2024 Roll Builder Relationship Specialty Start Date End Date Marie Castro DO [address] [facility] [address] [place] [address] PCP - General Internal Medicine 01/08/23 Marie Castro DO [address] [facility] [address] [place] [address] PCP - ACO Reach 09/10/23 Patrick Beard MD 1 [facility] [address] [place] [phone] Referring Physician Gastroenterology 04/17/24 Andrey Grullon MD [address] [facility] [address] [place] [address] Referring Physician Neurology 04/17/24 Saúl Davis MD [address] [place] [address] [address] [place] [address] Referring Physician Cardiology 04/17/24 Team Status: Inactive [...] Velasco MD Attending Provider Active Start: May Roll Builder Relationship Specialty Start Date End Date Marie Castro DO [address] [place] [address] PCP - General Internal Medicine 01/08/23 Marie Castro DO [address] [place] [address] PCP - ACO Reach 09/10/23 Patrick Beard MD 1 [facility] [address] [place], [place] [phone] Referring Physician Gastroenterology 04/17/24 Andrey Grullon MD [address] [place] [address] Referring Physician Neurology 04/17/24 Saúl Davis MD 703 [facility] [address] [place] [address] Referring Physician Cardiology 04/17/24 Roll Builder Relationship Specialty Start Date End Date Marie Castro DO [address] [place] [address] PCP - General Internal Medicine 01/08/23 Marie Castro DO [address] [place] [address] PCP - ACO Reach 09/10/23 Patrick Beard MD 1 [facility] [address] [place] [address] Referring Physician Gastroenterology 04/17/24 Andrey Grullon MD [address] [place] [address] Referring Physician Neurology 04/17/24 Saúl Davis MD 7[address] [facility] [address] [place] [address] Referring Physician Cardiology 04/17/24 Roll Builder Relationship Specialty Start Date End Date Marie Castro DO [address] [place] [address] PCP - General Internal Medicine 03/30/18 Stalin Alamo CNP [address] [place] [address] Referring Internal Medicine 04/26/24 Roll Builder Relationship Specialty Start Date End Date Marie Castro DO [address] [place] [address] PCP - General Internal Medicine 03/30/18 Stalin Alamo KALANI [address] [place] [address] Referring Internal Medicine 04/26/24 Roll Builder Relationship Specialty Start Date End Date Marie Castro DO [address] [place] [address] PCP - General Internal Medicine 01/08/23 Marie Castro DO [address] [place] [address] PCP - ACO Reach 09/10/23 Patrick Beard MD 1 [facility] [address] [place] [address] Referring Physician Gastroenterology 04/17/24 Andrey Grullon MD [address] [place] [address] Referring Physician Neurology 04/17/24 Saúl Davis MD [address] [place] [address] [address] [place] [address] Referring Physician Cardiology 04/17/24 Roll Builder Relationship Specialty Start Date End Date Marie Castro DO [address] [place] [address] PCP - General Internal Medicine 01/08/23 Marie Castro DO [address] [place] [address] PCP - ACO Reach 09/10/23 Patrick Beard MD 1 [facility] [address] [place] [address] Referring Physician Gastroenterology 04/17/24 Andrey Grullon MD [address] [place] [address] Referring Physician Neurology 04/17/24 Saúl Davis MD [address] [facility] [address] [place] [address] Referring Physician Cardiology 04/17/24 Roll Builder Relationship Specialty Start Date End Date Marie Castro DO [address] [place] [address] PCP - General Internal Medicine 03/30/18 Stalin Alamo CNP [address] [place] [address] Referring Internal Medicine 04/26/24 Roll Builder Relationship Specialty Start Date End Date Marie Castro DO [address] [place] [address] PCP - General Internal Medicine 03/30/18 Stalin Alamo CNP [address] [place] [address] Referring Internal Medicine 04/26/24 Team Status: Inactive [...] Active Start: June 20, 2024 Stephanie Sheridan DO Other Provider Active Sta rt: June 20, 2024 Beto Russo MD Other Provider Active Start: June 20, 2024 Thierno Corrales DO Other Provider Active Start: 2023 Abdulaziz Root MD Attending Provider Active Start: June 20, 2024 Team Status: Active Member Role Status Dates Marie Castro DO Primary Care Provider Active Start: July 16, 2024 Bertin Yepez DO Emergency Provider Active Start: July 16, 2024 Indra Guillory MD Admit Provide r, Attending Provider [...] Provider Active Start: July 17, 2024 Lisa Hidalgo MD Other Provider Active Start: J anuary 2024 Chuck Velasco MD Attending Provider Activ e Start: July 17, 2024 Roll Builder Relationship Specialty Start Date End Date Marie Castro DO [address] [place] [address] PCP - General Internal Medicine 01/08/23 Marie Castro DO [address] [place] [address] PCP - ACO Reach 09/10/23 Patrick Beard MD 1 [facility] [address] [place] [address] Referring Physician Gastroenterology 04/17/24 Andrey Grullon MD [address] [place] [address] Referring Physician Neurology 04/17/24 Saúl Davis MD 703 [facility] [address] [place] [address] Referring Physician Cardiology 04/17/24 Roll Builder Relationship Specialty Start Date End Date Marie Castro DO [address] [place] [address] PCP - General Internal Medicine 01/08/23 Marie Castro DO [address] [place] [address] PCP - ACO Reach 09/10/23 Patrick Beard MD 1 [facility] [address] [place], [place] [phone] Referring Physician Gastroenterology 04/17/24 Andrey Grullon MD [address] [place] [address] Referring Physician Neurology 04/17/24 Saúl Davis MD 703 [facility] [address] [place] [address] Referring Physician Cardiology 04/17/24 Roll Builder Relationship Specialty Start Date End Date Marie Castro DO [address] [place] [address] PCP - General Internal Medicine 03/30/18 Stalin Alamo CNP [address] [place] [address] Referring Internal Medicine 04/26/24 Roll Builder Relationship Specialty Start Date End Date Marie Castro DO [address] [place] [address] PCP - General Internal Medicine 03/30/18 Stalin Alamo CNP [address] [place] [address] Referring Internal Medicine 04/26/24 Roll Builder Relationship Specialty Start Date End Date Marie Castro DO [address] [place] [address] PCP - General Internal Medicine 03/30/18 Stalin Alamo APRN.CNP [address] [place] [address] Referring Internal Medicine 04/26/24 Team Status: Active Member Role Status Dates Marie Castro DO Primary Care Provider Active Start: August 29, 2024 Anat Perez MD Referring Provider Active Sta rt: August 29, 2024 Abdulaziz Root MD Attending Provid er, Other Provider Active Start: August 29, 2024 Roll Builder Relationship Specialty Start Date End Date Marie Castro DO [address] [place] [address] PCP - General Internal Medicine 01/08/23 Marie Castro DO [address] [place] [address] PCP - ACO Reach 09/10/23 Patrick Beard MD 1 [facility] [address] [place] [phone] Referring Physician Gastroenterology 04/17/24 Andrey Grullon MD [address] [place] [address] Referring Physician Neurology 04/17/24 Saúl Davis MD 703 [facility] [address] [place] [address] Referring Physician Cardiology 04/17/24 Team Status: Inactive Member Role Status Dates Marie Castro DO Primary Care Provider Active Start: August 31, 2024 End: August 31, 2024 Anat Perez MD Attending Provider Active Sta rt: August 31, 2024 End: August 31, 2024 Roll Builder Relationship Specialty Start Date End Date Ileana Marie DO Tru [address] [place] [address] PCP - General Internal Medicine 03/30/18 Stalin Alamo, GRAIN FARMWORKER.INTER COM INSTALLER [address] [place] [address] Referring Internal Medicine 04/26/24 Roll Builder Relationship Specialty Start Date End Date Ileana Marie OttDO [address] [place] [address] PCP - General Internal Medicine 03/30/18 Stalin Alamo, GRAIN FARMWORKER.INTER COM INSTALLER [address] [place] [address] Referring Internal Medicine 04/26/24 Roll Builder Relationship Specialty Start Date End Date Marie Castro DO [address] [place] [address] PCP - General Internal Medicine 01/08/23 Marie Castro DO [address] [place] [address] PCP - ACO Reach 09/10/23 Patrick Beard MD 1 [facility] [address] [place] [address] Referring Physician Gastroenterology 04/17/24 Andrey Grullon MD [address] [place] [address] Referring Physician Neurology 04/17/24 Saúl Davis MD 703 [facility] [address] [place] [address] Referring Physician Cardiology 04/17/24 Roll Builder Relationship Specialty Start Date End Date Marie Castro DO [address] [place] [address] PCP - General Internal Medicine 03/30/18 Stalin Alamo APRN.INTER COM INSTALLER [address] [place] [address] Referring Internal Medicine 04/26/24 Roll Builder Relationship Specialty Start Date End Date Marie Castro DO [address] [place] [address] PCP - General Internal Medicine 03/30/18 Stalin Alamo, AMADA.INTER COM INSTALLER [address] [place] [address] Referring Internal Medicine 04/26/24 Roll Builder Relationship Specialty Start Date End Date Marie Castro DO [address] [place] [address] PCP - General Internal Medicine 03/30/18 Stalin Alamo APRN.INTER COM INSTALLER [address] [place] [address] Referring Internal Medicine 04/26/24 Roll Builder Relationship Specialty Start Date End Date Marie Castro DO [address] [place] [address] PCP - General Internal Medicine 03/30/18 Stalin Alamo, GRAIN FARMWORKER.INTER COM INSTALLER [address] [place] [address] Referring Internal Medicine 04/26/24 Roll Builder Relationship Specialty Start Date End Date Marie Castro, DO [address] [place] [address] PCP - General Internal Medicine 03/30/18 Stalin Alamo, GRAIN FARMWORKER.INTER COM INSTALLER [address] [place] [address] Referring Internal Medicine 04/26/24 Roll Builder Relationship Specialty Start Date End Date Marie Castro, DO [address] [place] [address] PCP - General Internal Medicine 03/30/18 Stalin Alamo, GRAIN FARMWORKER.INTER COM INSTALLER [address] [place] [address] Referring Internal Medicine 04/26/24 Roll Builder Relationship Specialty Start Date End Date Marie Castro, DO [address] [place] [address] PCP - General Internal Medicine 03/30/18 Stalin Alamo, GRAIN FARMWORKER.INTER COM INSTALLER [address] [place] [address] Referring Internal Medicine 04/26/24 Roll Builder Relationship Specialty Start Date End Date Marie Castro DO [address] [place] [address] PCP - General Internal Medicine 03/30/18 Stalin Alamo, AMADA.INTER COM INSTALLER [address] [place] [address] Referring Internal Medicine 04/26/24 Roll Builder Relationship Specialty Start Date End Date Marie Castro DO [address] [place] [address] PCP - General Internal Medicine 03/30/18 Stalin Alamo, GRAIN FARMWORKER.INTER COM INSTALLER [address] [place] [address] Referring Internal Medicine 04/26/24 Team Status: Inactive Member Role Status Dates Marie Castro DO Primary Care Provider Active Start: October 13, 2024 End: October 13, 2024 Anat Perez MD Attending Provider Active Sta rt: October 13, 2024 End: October 13, 2024 Roll Builder Relationship Specialty Start Date End Date Marie Castro DO [address] [place] [address] PCP - General Internal Medicine 01/08/23 Marie Castro DO [address] [place] [address] PCP - ACO Reach 09/10/23 Patrick Beard MD 1 [facility] [address] [place] [address] Referring Physician Gastroenterology 04/17/24 Andrey Grullon MD [address] [place] [address] Referring Physician Neurology 04/17/24 Saúl Davis MD 703 [facility] [place] [address] Referring Physician Cardiology 04/17/24 Roll Builder Relationship Specialty Start Date End Date Marie Castro DO [address] [place] [address] PCP - General Internal Medicine 03/30/18 Stalin Alamo, GRAIN FARMWORKER.INTER COM INSTALLER [address] [place] [address] Referring Internal Medicine 04/26/24 Roll Builder Relationship Specialty Start Date End Date Marie Castro DO [address] [place] [address] PCP - General Internal Medicine 03/30/18 Stalin Alamo, GRAIN FARMWORKER.INTER COM INSTALLER [address] [place] [address] Referring Internal Medicine 04/26/24 Team Status: Active Member Role Status Dates Marie Castro DO Primary Care Provider Active Start: November 30, 2024 Anat Perez MD Other Provider Active Start: November 30, 2024 Abdulaziz Root MD Attending Provider Active Start: November 30, 2024 Roll Builder Relationship Specialty Start Date End Date Marie Castro DO [address] [place] [address] PCP - General Internal Medicine 03/30/18 Stalin Alamo, GRAIN FARMWORKER.INTER COM INSTALLER [address] [place] [address] Referring Internal Medicine 04/26/24 Roll Builder Relationship Specialty Start Date End Date Marie Castro DO [address] [place] [address] PCP - General Internal Medicine 03/30/18 Stalin Alamo, GRAIN FARMWORKER.INTER COM INSTALLER [address] [place] [address] Referring Internal Medicine 04/26/24 Roll Builder Relationship Specialty Start Date End Date Marie Castro DO [address] [place] [address] PCP - General Internal Medicine 03/30/18 Stalin Alamo, GRAIN FARMWORKER.INTER COM INSTALLER [address] [place] [address] Referring Internal Medicine 04/26/24 Roll Builder Relationship Specialty Start Date End Date Marie Castro DO [address] [place] [address] PCP - General Internal Medicine 01/08/23 Marie Castro DO [address] [place] [address] PCP - ACO Reach 09/10/23 Patrick Beard MD 1 [facility] [address] [place] [address] Referring Physician Gastroenterology 04/17/24 Andrey Grullon MD [address] [place] [address] Referring Physician Neurology 04/17/24 Saúl Davis MD [facility]03 [facility], [address] [place] [address] Referring Physician Cardiology 04/17/24 Roll Builder Relationship Specialty Start Date End Date Marie Castro DO [address] [place] [address] PCP - General Internal Medicine 01/08/23 Marie Castro DO [address] [place] [address] PCP - ACO Reach 09/10/23 Patrick Beard MD 1 [facility] [address] [place] [address] Referring Physician Gastroenterology 04/17/24 Andrey Grullon MD [address] [place] [address] Referring Physician Neurology 04/17/24 Saúl Davis MD [facility]03 [facility] [address] [place] [address] Referring Physician Cardiology 04/17/24 Roll Builder Relationship Specialty Start Date End Date Marie Castro DO [address] [place] [address] PCP - General Internal Medicine 01/08/23 Marie Castro DO [address] [place] [address] PCP - ACO Reach 09/10/23 Patrick Beard MD 1 [facility] [address] [place] [address] Referring Physician Gastroenterology 04/17/24 Andrey Grullon MD [address] [place] [address] Referring Physician Neurology 04/17/24 Saúl Davis MD 703 [facility] [address] [place] [address] Referring Physician Cardiology 04/17/24 Team Status: Active Member Role Status Dates Marie Castro DO Primary Care Provider Active Start: March 02, 2025 Anat Perez MD Other Provider Active Start: March 02, 2025 Abdulaziz Root MD Attending Provider Active Start: March 02, 2025 Roll Builder Relationship Specialty Start Date End Date Marie Castro DO [address] [place] [address] PCP - General Internal Medicine 03/30/18 Stalin Alamo, AMADA.INTER COM INSTALLER [address] [place] [address] Referring Internal Medicine 04/26/24 Team Status: Inactive Member Role Status Dates Marie Castro DO Primary Care Provider Active Start: March 27, 2025 End: March 27, 2025 Anat Perez MD Attending Provider Active Sta rt: March 27, 2025 End: March 27, 2025 Roll Builder Relationship Specialty Start Date End Date Marie Castro DO [address] [place] [address] PCP - General Internal Medicine 01/08/23 Marie Castro DO [address] [place] [address] PCP - ACO Reach 09/10/23 Patrick Beard MD 1 [facility] [address] [place], [place] [id number] Referring Physician Gastroenterology 04/17/24 Andrey Grullon MD [address] [place] [address] Referring Physician Neurology 04/17/24 Saúl Davis MD 703 [facility] [address] [place] [address] Referring Physician Cardiology 04/17/24 (unrecognized sect ion and content) No Status Records FoundNo Status Records FoundNo Status Records FoundNo Status Records FoundNo Status Records FoundNo Status Records FoundNo Status Records FoundNo Status Records FoundNo Status Records FoundNo Status Records FoundNo Status Records Found INFORMATION SOURCE (unrecogn ized section and content) DATE CREATED AUTHOR 01/29/2022 [facility] DATE CREATED AUTHOR AUTHOR'S ORGANIZ ATION 06/11/2022 [facility] DATE CREATED AUTHOR AUTHOR'S ORGANIZ ATION 06/12/2023 [facility] DATE CREATED AUTHOR AUTHOR'S ORGANIZ ATION 10/23/2023 [facility] DATE CREATED AUTHOR AUTHOR'S ORGANIZ ATION 11/18/2023 [facility] DATE CREATED AUTHOR AUTHOR'S ORGANIZ ATION 01/27/2024 [facility] DATE CREATED AUTHOR AUTHOR'S ORGANIZ ATION 05/05/2024 [facility] DATE CREATED AUTHOR AUTHOR'S ORGANIZ ATION 01/20/2025 [facility] DATE CREATED AUTHOR AUTHOR'S ORGANIZ ATION 03/08/2025 [facility] DATE CREATED AUTHOR AUTHOR'S ORGANIZ ATION 04/15/2025 [facility] DATE CREATED AUTHOR AUTHOR'S ORGANIZ ATION 04/16/2025 [facility] Source Comments (unrecognize d section and content) In the event this informatio n is protected by the Federal Confidentiality of Alcohol and Drug Abuse Patient Records regulations: The Federal rules restrict any use of the information to criminally investigate or prosecute any alcohol or drug abuse patient.[facility] Hospital[facility] the event this information is protected by the Federal Confidentiality of Alcohol and Drug Abuse Patient Records regulations: The Federal rules restrict any use of the information to criminally investigate or prosecute any alcohol or drug abuse patient.[facility] HospitalIn the event this information is protected by the Federal Confidentiality of Alcohol and Drug Abuse Patient Records regulations: The Federal rules restrict any use of the information to criminally investigate or prosecute any alcohol or drug abuse patient.[facility] HospitalIn the event this information is protected by the Federal Confidentiality of Alcohol and Drug Abuse Patient Records regulations: The Federal rules restrict any use of the information to criminally investigate or prosecute any alcohol or drug abuse patient.[facility] HospitalIn the event this information is protected by the Federal Confidentiality of Alcohol and Drug Abuse Patient Records regulations: The Federal rules restrict any use of the information to criminally investigate or prosecute any alcohol or drug abuse patient.[facility] HospitalIn the event this information is protected by the Federal Confidentiality of Alcohol and Drug Abuse Patient Records regulations: The Federal rules restrict any use of the information to criminally investigate or prosecute any alcohol or drug abuse patient.[facility] HospitalIn the event this information is protected by the Federal Confidentiality of Alcohol and Drug Abuse Patient Records regulations: The Federal rules restrict any use of the information to criminally investigate or prosecute any alcohol or drug abuse patient.[facility] HospitalIn the event this information is protected by the Federal Confidentiality of Alcohol and Drug Abuse Patient Records regulations: The Federal rules restrict any use of the information to criminally investigate or prosecute any alcohol or drug abuse patient.[facility] HospitalIn the event this information is protected by the Federal Confidentiality of Alcohol and Drug Abuse Patient Records regulations: The Federal rules restrict any use of the information to criminally investigate or prosecute any alcohol or drug abuse patient.[facility] HospitalIn the event this information is protected by the Federal Confidentiality of Alcohol and Drug Abuse Patient Records regulations: The Federal rules restrict any use of the information to criminally investigate or prosecute any alcohol or drug abuse patient.[facility] HospitalIn the event this information is protected by the Federal Confidentiality of Alcohol and Drug Abuse Patient Records regulations: The Federal rules restrict any use of the information to criminally investigate or prosecute any alcohol or drug abuse patient.[facility] HospitalIn the event this information is protected by the Federal Confidentiality of Alcohol and Drug Abuse Patient Records regulations: The Federal rules restrict any use of the information to criminally investigate or prosecute any alcohol or drug abuse patient.[facility] HospitalIn the event this information is protected by the Federal Confidentiality of Alcohol and Drug Abuse Patient Records regulations: The Federal rules restrict any use of the information to criminally investigate or prosecute any alcohol or drug abuse patient.[facility] HospitalIn the event this information is protected by the Federal Confidentiality of Alcohol and Drug Abuse Patient Records regulations: The Federal rules restrict any use of the information to criminally investigate or prosecute any alcohol or drug abuse patient.[facility] HospitalIn the event this information is protected by the Federal Confidentiality of Alcohol and Drug Abuse Patient Records regulations: The Federal rules restrict any use of the information to criminally investigate or prosecute any alcohol or drug abuse patient.[facility] HospitalIn the event this information is protected by the Federal Confidentiality of Alcohol and Drug Abuse Patient Records regulations: The Federal rules restrict any use of the information to criminally investigate or prosecute any alcohol or drug abuse patient.[facility] HospitalIn the event this information is protected by the Federal Confidentiality of Alcohol and Drug Abuse Patient Records regulations: The Federal rules restrict any use of the information to criminally investigate or prosecute any alcohol or drug abuse patient.[facility] HospitalIn the event this information is protected by the Federal Confidentiality of Alcohol and Drug Abuse Patient Records regulations: The Federal rules restrict any use of the information to criminally investigate or prosecute any alcohol or drug abuse patient.[facility] HospitalIn the event this information is protected by the Federal Confidentiality of Alcohol and Drug Abuse Patient Records regulations: The Federal rules restrict any use of the information to criminally investigate or prosecute any alcohol or drug abuse patient.[facility] the event this information is protected by the Federal Confidentiality of Alcohol and Drug Abuse Patient Records regulations: The Federal rules restrict any use of the information to criminally investigate or prosecute any alcohol or drug abuse patient.[facility] HospitalIn the event this information is protected by the Federal Confidentiality of Alcohol and Drug Abuse Patient Records regulations: The Federal rules restrict any use of the information to criminally investigate or prosecute any alcohol or drug abuse patient.[facility] HospitalIn the event this information is protected by the Federal Confidentiality of Alcohol and Drug Abuse Patient Records regulations: The Federal rules restrict any use of the information to criminally investigate or prosecute any alcohol or drug abuse patient.[facility] HospitalIn the event this information is protected by the Federal Confidentiality of Alcohol and Drug Abuse Patient Records regulations: The Federal rules restrict any use of the information to criminally investigate or prosecute any alcohol or drug abuse patient.[facility] HospitalIn the event this information is protected by the Federal Confidentiality of Alcohol and Drug Abuse Patient Records regulations: The Federal rules restrict any use of the information to criminally investigate or prosecute any alcohol or drug abuse patient.[facility] HospitalIn the event this information is protected by the Federal Confidentiality of Alcohol and Drug Abuse Patient Records regulations: The Federal rules restrict any use of the information to criminally investigate or prosecute any alcohol or drug abuse patient.[facility] HospitalIn the event this information is protected by the Federal Confidentiality of Alcohol and Drug Abuse Patient Records regulations: The Federal rules restrict any use of the information to criminally investigate or prosecute any alcohol or drug abuse patient.[facility] HospitalIn the event this information is protected by the Federal Confidentiality of Alcohol and Drug Abuse Patient Records regulations: The Federal rules restrict any use of the information to criminally investigate or prosecute any alcohol or drug abuse patient.[facility] HospitalIn the event this information is protected by the Federal Confidentiality of Alcohol and Drug Abuse Patient Records regulations: The Federal rules restrict any use of the information to criminally investigate or prosecute any alcohol or drug abuse patient.[facility] HospitalIn the event this information is protected by the Federal Confidentiality of Alcohol and Drug Abuse Patient Records regulations: The Federal rules restrict any use of the information to criminally investigate or prosecute any alcohol or drug abuse patient.[facility] HospitalIn the event this information is protected by the Federal Confidentiality of Alcohol and Drug Abuse Patient Records regulations: The Federal rules restrict any use of the information to criminally investigate or prosecute any alcohol or drug abuse patient.[facility] HospitalIn the event this information is protected by the Federal Confidentiality of Alcohol and Drug Abuse Patient Records regulations: The Federal rules restrict any use of the information to criminally investigate or prosecute any alcohol or drug abuse patient.[facility] HospitalIn the event this information is protected by the Federal Confidentiality of Alcohol and Drug Abuse Patient Records regulations: The Federal rules restrict any use of the information to criminally investigate or prosecute any alcohol or drug abuse patient.[facility] HospitalIn the event this information is protected by the Federal Confidentiality of Alcohol and Drug Abuse Patient Records regulations: The Federal rules restrict any use of the information to criminally investigate or prosecute any alcohol or drug abuse patient.[facility] HospitalIn the event this information is protected by the Federal Confidentiality of Alcohol and Drug Abuse Patient Records regulations: The Federal rules restrict any use of the information to criminally investigate or prosecute any alcohol or drug abuse patient.[facility] HospitalIn the event this information is protected by the Federal Confidentiality of Alcohol and Drug Abuse Patient Records regulations: The Federal rules restrict any use of the information to criminally investigate or prosecute any alcohol or drug abuse patient.[facility] HospitalIn the event this information is protected by the Federal Confidentiality of Alcohol and Drug Abuse Patient Records regulations: The Federal rules restrict any use of the information to criminally investigate or prosecute any alcohol or drug abuse patient.[facility] HospitalIn the event this information is protected by the Federal Confidentiality of Alcohol and Drug Abuse Patient Records regulations: The Federal rules restrict any use of the information to criminally investigate or prosecute any alcohol or drug abuse patient.[facility] HospitalIn the event this information is protected by the Federal Confidentiality of Alcohol and Drug Abuse Patient Records regulations: The Federal rules restrict any use of the information to criminally investigate or prosecute any alcohol or drug abuse patient.[facility] Goals (unrecognized section and content) Goals may [...] BE BASED ON THE PRIMARY CLINICAL RECORDS. [employer] [facility]. provides no warranty or guarantee of the accuracy or completeness of information in this document.
[2025-04-18 09:02] LABS: Hematocrit 32.3 % (42.0-54.0); Hemoglobin 10.6 g/dL (14.0-18.0); Immature Granulocytes Abs Auto 0.01 10^3/uL (0.00-0.03); Immature Granulocytes Pct Auto 0.1 % (0.0-0.5); Lymphocytes Absolute Auto 0.6 10^3/uL (1.2-3.8); Mean Corpuscular HGB Conc 32.8 g/dL (29.9-35.2); Mean Corpuscular Hemoglobin 28.8 pg (25.9-34.0); Mean Corpuscular Volume 87.8 fL (80.0-94.0); Platelet Count 152 10^3/uL (150-450); Red Blood Count 3.68 10^6/uL (4.70-6.10); White Blood Count 6.8 10^3/uL (4.0-11.0)
[2025-04-18 09:05] VITALS: BP 160/89; PULSE 60; TEMP 36.3
[2025-04-18 09:18] LABS: Anion Gap 14.4; Blood Urea Nitrogen 36.0 mg/dL (7.0-18.0); Calcium 8.4 mg/dL (8.5-10.1); Carbon Dioxide 26.8 mmol/L (21.0-32.0); Chloride 102 mmol/L (98-107); Estimated GFR (African America 58 (>=60 mL/min/1.73m^2); Estimated GFR (Non-African Ame 48 (>=60 mL/min/1.73m^2); Glucose 95 mg/dL (74-106); Potassium 4.2 mmol/L (3.5-5.1); Sodium 139 mmol/L (136-145)
[2025-04-18 09:38] VITALS: BP 142/70; PULSE 61; O2SAT 92
--- NOTE | 2025-04-18 14:20 | ED_ITS ---
HPI HPI - General Adult General Chief complaint: Recheck/Abnormal Lab/Rx Stated complaint: HYPERTENSION Time Seen by Provider: 04/18/25 08:22 Source: patient Mode of arrival: ambulance Limitations: no limitations History of Present Illness HPI narrative: Patient is an 89-year-old male presenting to the emergency department from the [facility] for concerns of hypertension. The patient supposed to get losartan and metoprolol for high blood pressure. He has not yet received his medications, however the senior care reports he has a systolic blood pressure of around 200. On arrival to our ED, the patient is asymptomatic. He states he feels hungry because he has not had breakfast yet. He was recently discharged from the hospital for UTI, DENISHA. He is currently asymptomatic in this regard. He denies chest pain, shortness of breath, abdominal pain, nausea, vomiting, dysuria, urinary frequency, hematuria, headaches, or any other complaints. Related Data Home Medications ?Medication ?Instructions ?Recorded ?Confirmed nwzqpj-lfduykve-iitzdg(pork)24,000-76,000-120,000 2 ca p PO TIDWM 08/21/23 04/10/25 unit capsule,del rel (Creon) nitroglycerin 0.4 mg sublingual 0.4 mg sublingual Q5M PRN chest 08/21/23 04/10/25 tablet pain atorvastatin 40 mg tablet 40 mg PO .qhs 04/10/2504/10 blood-glucose sensor (Dexcom G7 04/10/25 04/10/25 Sensor device) insulin aspart U-100 100 unit/mL 4 unit subcut TIDWM 0 04/10/25 04/10/25 (3 mL) subcutaneous pen (Novolog FlexPen U-100 Insulin aspart) insulin pump cart,auto,BT,G6/7 04/10/25 04/10/25 (Omnipod 5 G6-G7 Pods (Gen 5) subcutaneous cartridge) spironolactone 25 mg tablet 25 mg PO .qd 04/10/2503/14 Previous Rx's ?Medication ?Instructions ?Recorded aspirin 81 mg chewable tablet 81 mg PO QD #0 tabs 10/10/03 tfbhbjjo-yfmlhtp-uqvlnde 24 31 g PO Q15M PRN Hypoglyce angelina #0 04/13/25 gram/31 gram oral gel grams (Insta-Glucose (with dextrin)) glucagon 1 mg solution for 1 mg IV Q15M PRN Hypoglycem ia #0 ea 04/13/25 injection (Glucagon Emergency Kit) insulin aspart U-100 100 unit/mL 3 - 15 unit (0.03 - 0 .15 mL) 04/13/25 (3 mL) subcutaneous pen (Novolog subcut ACHS #0 mL FlexPen U-100 Insulin aspart) insulin glargine 100 unit/mL (3 15 unit (0.15 mL) SQ Q D #0 mL 04/13/25 mL) subcutaneous pen (Lantus Solostar U-100 Insulin) losartan 25 mg tablet 25 mg PO DAILY #30 tabs 10/03 metoprolol succinate 25 mg 25 mg PO DAILY #0 tabs 10/03 tablet,extended release 24 hr pantoprazole 40 mg tablet,delayed 40 mg PO DAILY #0 ta bs 04/13/25 release paroxetine HCl 40 mg tablet 20 mg (1/2 x 40 mg) PO .qd #0 tabs 04/13/25 sennosides 8.6 mg-docusate sodium 2 tab PO QD #0 tabs 04/13/25 50 mg tablet tamsulosin 0.4 mg capsule 0.4 mg PO QD #0 caps 5 Allergies Allergy/AdvReac Type Severity Reaction Status Date / Time No Known Drug Allergies Allergy Verified 04/09/25 23:05 Opioid HPI Opioid Management Most Recent Opioid Data: Last Pain Scale 0 04/13/25, 11:52 Last Pain Intensity 0 04/13/25, 11:52 Last Pain Assessment 04/11/25, 15:00 Last ORT Total Score 0 04/10/25, 05:44 Last ORT Risk Category Low Risk 04/10/25, 05:44 Review of Systems ROS Status of ROS 10 or more systems reviewed and unremark able except as noted in history and below [facility] Medical History (Updated 04/18/25 @ 09:36 by Sebas Herrera DO) H/O chronic pancreatitis ?Z87.19 - Personal history of other diseases of the digestive system (ICD-10) CAD (coronary artery disease) ?I25.10 - Atherosclerotic heart disease of [place] coronary artery without angina pectoris (ICD-10) Insulin dependent diabetes mellitus Atherosclerosis ?I70.90 - Unspecified atherosclerosis (ICD-10) Closed fracture of right hip requiring operative repair ?S72.001A - Fracture of unspecified part of neck of right femur, initial encounter for closed fracture (ICD-10) Diabetes ?E11.9 - Type 2 diabetes mellitus without complications (ICD-10) Surgical History (Updated 08/22/23 @ 10:52 by Lamar Mahan) H/O heart artery stent ?Z95.5 - Presence of coronary angioplasty implant and graft (ICD-10) 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 (ICD-10) 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) Family History (Updated 04/10/25 @ 05:51 by Thania Zhang RN) Other Family history of myocardial infarction Social History (Updated 04/10/25 @ 05:52 by Thania Zhang RN) Within the past year, how often did you have a drink containing alcohol: monthly or less Smoking status: Former smoker Non-prescribed substance use: denies use Highest level of school completed/degree received: some college, no degree Are you now , , , , never or living with a partner: In a typical week, how many times do you talk on the telephone with family, friends, or neighbors: twice per week How often do you get together with friends or relatives: twice per week Little interest or pleasure in doing things: not at all Feeling down, depressed, or hopeless: not at all Feel stressed/tense/nervous/anxious/difficulty sleeping: to some extent Do you think of yourself as: straight/heterosexual Gender Identity: male Exam Narrative Exam Narrative: CONSTITUTIONAL: Well-appearing, answering questions and following commands appropriately SKIN: Was warm and dry. EYES: Sclera white. EARS, NOSE, THROAT: Moist oral mucosa. RESPIRATORY: Clear to auscultation bilaterally, no wheezes, crackles, or stridor, no use of accessory muscles CARDIOVASCULAR: Normal rate and regular rhythm. There is no S3, S4, murmur, rub. GASTROINTESTINAL: Abdomen was soft, non-tender, and non-distended. There is no guarding or rebound tenderness MUSCULOSKELETAL: There was no lower extremity edema, erythema, or tenderness. NEUROLOGIC: Patient is awake and alert. Facies were symmetrical. Constitutional Vital Signs, click to edit/add: Last Vital Signs Temp 97.4 F L 04/18/25 09:05 Pulse 61 04/18/25 09:38 Resp 14 04/18/25 09:38 BP 142/70 H 04/18/25 09:38 Pulse Ox 92 L 04/18/25 09:38 O2 Del Method Room Air 04/18/25 09:38 Course Vital Signs Vital signs: Vital Signs Pulse Rate 58 L 04/18/25 08:25 Respiratory Rate 18 04/18/25 08:25 Blood Pressure 190/60 H 04/18/25 08:25 Pulse Oximetry 99 04/18/25 08:25 Oxygen Delivery Method Room Air 04/18/25 08:25 Temperature 97.4 F L 04/18/25 09:05 Pulse Rate 61 04/18/25 09:38 Respiratory Rate 14 04/18/25 09:38 Blood Pressure 142/70 H 04/18/25 09:38 Pulse Oximetry 92 L 04/18/25 09:38 Oxygen Delivery Method Room Air 04/18/25 09:38 Medical Decision Making MDM Narrative Medical decision making narrative: Patient is an 89-year-old male presenting to the emergency department from the [facility] for concerns of hypertension. retirement reports the patient systolic blood pressures in the 200s, though they had just given his losartan and metoprolol. On arrival to our ED, the patient's blood pressure was 190/60. His vital signs are within normal limits otherwise. He is currently asymptomatic. He feels well and is requesting food to eat. On review of external documentation, he was recently discharged in the hospital for DENISHA, UTI. My clinical impression is that the patient's presentation is secondary to asymptomatic hypertension. I did elect to obtain laboratory studies given his recent hospitalization. Laboratory studies were unremarkable. No significant electrolyte or metabolic derangement. No evidence of acute kidney injury. No significant anemia, leukocytosis, or thrombocytopenia from his baseline. Troponin nonelevated. 12 Lead EKG: Atrial fibrillation with occasional atrial pacemaker spikes at a normal rate of 64. Normal axis. No ST segment elevations. QRS, AR, and QTc interval within normal limits. Final impression: Afib w/ occasional atrial pacemaker spikes. No evidence of acute myocardial ischemia. On reevaluation, patient remains asymptomatic and feels comfortable being discharged home. His blood pressure is now 142/70. I do believe the patient is stable for discharge. Patient's presentation is most likely consistent with asymptomatic hypertension. They were instructed to follow up with his PCP for further care. Return precautions were given including any new or worsening symptoms. Patient understands and agrees to the plan. FINAL IMPRESSION: #Acute asymptomatic hypertension #History of chronic hypertension DISPOSITION: Discharged to [facility] CONDITION: Good Medical Records Medical records reviewed: Yes I reviewed the patient's medical records Lab Data Lab results reviewed: Yes I reviewed the patient's lab results Labs: Lab Results 04/18/25 04/18/25 Range/Units 08:26 08:50 WBC 6.8 (4.0-11.0) 10^3/uL RBC 3.68 L (4.70-6.10) 10^6/uL Hgb 10.6 L (14.0-18.0) g/dL Hct 32.3 L (42.0-54.0) % MCV 87.8 (80.0-94.0) fL MCH 28.8 (25.9-34.0) pg MCHC 32.8 (29.9-35.2) g/dL RDW 17.0 H (11.0-15.0) % Plt Count 152 (150-450) 10^3/uL MPV 10.9 (9.5-13.5) fL Neut % (Auto) 78.0 H (43.0-75.0) % Lymph % (Auto) 8.5 L (20.5-60.0) % [place] % (Auto) 12.8 H (1.7-12.0) % Eos % (Auto) 0.3 L (0.9-7.0) % Baso % (Auto) 0.3 (0.2-2.0) % Neut # (Auto) 5.3 (1.4-6.5) 10^3/uL Lymph # (Auto) 0.6 L (1.2-3.8) 10^3/uL [place] # (Auto) 0.9 H (0.3-0.8) 10^3/uL Eos # (Auto) 0.0 (0.0-0.7) 10^3/uL Baso # (Auto) 0.0 (0.0-0.1) 10^3/uL Abs Immat Gran (auto) 0.01 (0.00-0.03) 10^3/uL Imm/Tot Granulo (auto) 0.1 (0.0-0.5) % Sodium 139 (136-145) mmol/L Potassium 4.2 (3.5-5.1) mmol/L Chloride 102 (98-107) mmol/L Carbon Dioxide 26.8 (21.0-32.0) mmol/L Anion Gap 14.4 BUN 36.0 H (7.0-18.0) mg/dL Creatinine 1.39 H (0.70-1.30) mg/dL Est GFR ( Amer) 58 L (>=60 mL/min/1.73m^2) Est GFR (Non-Af Amer) 48 L (>=60 mL/min/1.73m^2) BUN/Creatinine Ratio 25.9 Glucose 95 (74-106) mg/dL Calcium 8.4 L (8.5-10.1) mg/dL Troponin I High Sens 73.4 (4.0-76.1) pg/mL POC Glucose 79 (74-106) mg/dL ECG Data Attestation: I personally reviewed and interpreted this ECG as follows: Discharge Plan Discharge Chief Complaint: Recheck/Abnormal Lab/Rx Clinical Impression: Asymptomatic hypertension Patient Disposition: Home, Self-Care Time of Disposition Decision: 09:35 Condition: Good Mode of Transportation: EMS Prescriptions / Home Meds: No Action Creon 24,000-76,000 -120,000 unit capsule,delayed release(DR/EC) 2 cap PO TIDWM Rx Instructions: AND 1 CAPSULE WITH SNACKS DIRECTED nitroglycerin 0.4 mg tablet, sublingual 0.4 mg sublingual Q5M PRN (Reason: chest pain) spironolactone 25 mg tablet 25 mg PO .qd atorvastatin 40 mg tablet 40 mg PO .qhs insulin aspart U-100 [Novolog FlexPen U-100 Insulin] 100 unit/mL (3 mL) insulin pen 4 unit SUBCUT TIDWM (DME) Dexcom G7 Sensor Device MISCELLANEOUS (DME) Omnipod 5 G6-G7 Pods (Gen 5) Cartridge SUBCUT sennosides-docusate sodium 8.6-50 mg Tablet 2 tab PO QD Qty: 0 0RF tamsulosin 0.4 mg Capsule 0.4 mg PO QD Qty: 0 0RF pantoprazole 40 mg Tablet,Delayed Release (Dr/Ec) 40 mg PO DAILY Qty: 0 0RF aspirin 81 mg Tablet,Chewable 81 mg PO QD Qty: 0 0RF Glucagon Emergency Kit (human) 1 mg Recon Soln 1 mg IV Q15M PRN (Reason: Hypoglycemia) Qty: 0 0RF insulin aspart U-100 [Novolog FlexPen U-100 Insulin] 100 unit/mL (3 mL) Insulin Pen 3 - 15 unit subcut ACHS Qty: 0 0RF insulin glargine [Lantus Solostar U-100 Insulin] 100 unit/mL (3 mL) Insulin Pen 15 unit SQ QD Qty: 0 0RF Insta-Glucose (with dextrin) 24 gram/31 gram Gel 31 g PO Q15M PRN (Reason: Hypoglycemia) Qty: 0 0RF losartan 25 mg tablet 25 mg PO DAILY Qty: 30 0RF paroxetine HCl 40 mg tablet 20 mg PO .qd Qty: 0 0RF metoprolol succinate 25 mg tablet extended release 24 hr 25 mg PO DAILY Qty: 0 0RF Print Language: [place] Instructions: Chronic Hypertension (ED) Referrals: MARIE TEJEDA [Primary Care Provider, Internal Medicine] - 1 week Discharge Date/Time: 04/18/25 09:56
== END 2025-04-18 09:56 | disposition home or self-care (01) ==
PROVIDERS: Emergency Provider Student in an Organized Health Care Education/Training Program; PCP Internal Medicine
DX: I10 Essential (primary) hypertension (principal); Z87.440 Personal history of urinary (tract) infections; Z87.891 Personal history of nicotine dependence
CPT/HCPCS: 36415; 80048; 84484; 85025; 93005; 99284

== ENCOUNTER 2025-06-20 12:19 | Inpatient (IN) | payer MEDICARE, OTHER, SELFPAY ==
--- OUTSIDE RECORDS SUMMARY | 2025-06-11 19:12 | XMS_ITS | Continuity of Care Document ---
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 Shikha Aguilera Care ProviderActive Visit Care Team Team Status: Inactive Member Role/Relationship Status Dates Arnold Castro DO Primary Care Provider Active Start: March 27, 2025 End: March 27, 2025Aryan Brito ProviderActiveStart: March 27, 2025 End: March 27, 2025 Visit Care Team Team Status: Inactive Member Role/Relationship Status Dates Arnold Castro DO Primary Care Provider Active Start: May 09, 2025 End: May 09, 2025Aryan Brito ProviderActiveStart: May 09, 2025 End: May 09, 2025 Patient Care Team Team Status: Inactive Member Role/Relationship Status Dates Arnold Castro DO Primary Care Provider Active Start: June 11, 2025 End: June 11, 2025Aryan Brito ProviderActiveStart: June 11, 2025 End: June 11, 2025 Chief Complaint and Reason for Visit Chief Complaint Admit Date 6 week f/u May 09, 2025 1 0:11am I47.2 Z95.810 June 11, 2025 1 :48pm Reason for Visit Admit Date Ischemic cardiomyopathy March 27, 2025 9:54am Type 1 diabetes mellitus March 27, 2025 9:54am Acute GI bleeding March 27, 2025 9:54am 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 [place] March 27, 2025 9:54am Hypertension March 27, 2025 9:54am S/P PTCA (percutaneous transluminal mounika nary angioplasty) March 27, 2025 9:54am H pylori ulcer May 09, 2025 1 0:11am Iron deficiency May 09, 2025 1 0:11am Ischemic cardiomyopathy May 09 10:11am Type 1 diabetes mellitus May 09, 025 10:11am Acute GI bleeding May 09, 2025 1 0:11am Non-ST elevation myocardial infarction (NSTEMI), subendocardial infarction, May 09, 2025 10:11am 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 [place] May 09, 2025 10:11am Hypertension May 09, 2025 1 0:11am S/P PTCA (percutaneous transluminal mounika nary angioplasty) May 09, 2025 10:11am Allergies, Adverse Reactions, Alerts Allergen Type Severity Reaction Last Updated Verified Status No Known Allergies Allergy Unknown May 09, 2025 9:17amYesActive Social History Smoking Status Status Start Date End Date Date of Observa tion Ex-smoker (finding) June 11, 2024Jan2024 4:47pm Observation Status Observation Response Date of Response Legal Sex Male (finding) Sex Assigned At BirthMaleSeptember 1934 Family History Relationship Condition Age at Onset Recorded Date/T madelyn brother Malignant neoplasm Unknown DeceasedUnknownsonSarcomaUnknownsisterLeukemiaUnknownDeceasedUnknown Problems Active Problems Problem Diagnosis/Recorded Date Onset Date Status C omments HFrEF (heart failure with reduced ejection fraction) March 27, 2025 10:44am Unknown Active Vertebral fracture, closedMarch 2023 3:08pmUnknownActiveType 1 diabetes mellitusApr2023 8:57amUnknownActiveCAD (coronary artery disease)May 04, 2023 11:07amUnknownActiveSinus bradycardiaOctober 2023 3:52pmUnknown ActiveH pylori ulcerApril 2023 7:48amUnknownActiveIschemic cardiomyopathy February 15, 2024 10:01amUnknownActiveFracture of C5 vertebra, closedMarch 2023 3:08pmUnknownActiveS/P ICD (internal cardiac defibrillator) procedure May 25, 2024 10:40amUnknownActiveHelicobacter pylori (H. pylori)October 21, 2023 7:49amUnknownActiveBarretts esophagusApril 2023 7:48amUnknown ActiveStomach ulcerFebruary 2023 4:01pmUnknownActiveprevious rupture with repair.Iron deficiencyAugust 2023 9:12amUnknownActiveInactive/Resolved Problems Problem Diagnosis/Recorded Date Onset Date Status C omments Postoperative pain, acute, hip May 03, 2023 2:15pm Unknown Resolved Proble m List clean-up per request of Phys. EHR Cmte BPH (benign prostatic hyperplasia) April 28, 2023 4:34pm Unknown Resolved Mild left ventricular systolic dysfunction (LVSD)April 29, 2023 4:33pm UnknownResolvedProblem List clean-up per request of Phys. EHR CmteTwo-vessel coronary artery diseaseOctober 2022 8:11pmUnknownResolvedProblem List clean-up per request of Phys. EHR CmteNonsustained monomorphic ventricular tachycardiaOctober 2022 4:33pmUnknownResolvedProblem List clean-up per request of Phys. EHR CmteAbdominal wall abscessDecember 2023 5:43pmUnknown ResolvedImpaired mobility and activities of daily livingOctober 2022 2:15pmUnknownResolvedProblem List clean-up per request of Phys. EHR CmteAcute exacerbation of CHF (congestive heart failure)July 16, 2024 5:08pmUnknown ResolvedCOPD with acute exacerbationJanuary 2024 5:08pmUnknownResolved Pleuritic chest painJanuary 2024 5:08pmUnknownResolvedDiabetesOctober 2022 11:21amUnknownResolvedtype 1- insulin pump in place.GI bleedingJuly 2023 10:16pmUnknownResolvedFracture of cervical spinous processFebruary 2023 7:35amUnknownResolvedOsteoporosisOctober 2022 3:14pmUnknownResolved Problem List clean-up per request of Phys. EHR CmteUncontrolled diabetes mellitusOctober 2022 11:08amUnknownResolvedProblem List clean-up per request of Phys. EHR CmteNon-ST elevation myocardial infarction (NSTEMI), subendocardial infarction, subsequent episode of careJanuary 2023 4:04pm UnknownResolvedCervical spine fractureFebruary 2023 7:37amUnknownResolved Elevated troponinJuly 2023 10:16pmUnknownResolvedElevated troponinOctober 2022 4:10pmUnknownResolvedProblem List clean-up per request of Phys. EHR CmteHistory of pancreatectomyOctober 2022 4:34pmUnknownResolvedCoronary artery disease involving seminole coronary artery of seminole heart without angina pectorisJuly 2023 1:40pmUnknownResolvedAbnormal EKGOctober 2022 4:10pmUnknownResolvedProblem List clean-up per request of Phys. EHR CmteAcute electrocardiogram changesJuly 2023 10:16pmUnknownResolvedAbdominal abscess June 17, 2024 8:28amUnknownResolvedPostoperative anemiaOctober 2022 3:14pmUnknownResolvedProblem List clean-up per request of Phys. EHR CmteAnxiety and depressionOctober 2022 3:15pmUnknownResolvedS/P PTCA (percutaneous transluminal coronary angioplasty)February 06, 2024 1:41pmUnknownResolvedAcute GI bleedingJuly 2023 10:18pmUnknownResolvedMelenaFebruary 2023 3:26pm UnknownResolvedHypertensionOctober 2022 3:14pmUnknownResolvedClosed intertrochanteric fracture of right hipOctober 2022 4:10pmUnknownResolved Problem List clean-up per request of Phys. EHR CmteProtein-calorie malnutrition, mildOctober 2022 3:14pmUnknownResolved Medications Medication Status Dose Units Route Directions Qty Days Refills S tart Date Stop Date End Date Reason(s) Instructions Adherence Iron Sucrose (Venofer) 200 m g iron/10 mL solution Discontinued 100 MG IV 3 Times a week 0August 2023 11:00pmSeptember 2023 9:49amadminister over 30 mins Atorvastatin 80 mg vwtzdaCnkbmgoeqqwm51QKUIGfdfi at dofvama66760Hdmkob 2023 7:12amApril 2024 7:22amFurosemide 20 mg tabletDiscontinued0.ROUTE .ZPGXTNZ471Hbdiiad 2024 11:46amFebruary 2024 10:10amTAKE 1 TABLET BY MOUTH EVERY DAY AT 8 AMMetoprolol Succinate 25 mg tablet extended release 24 hr Ntduwryrmbah06.5MGPOTwice clvxb63858Kvfud 2024 8:20amMay 2024 8:38am Atorvastatin 80 mg jvmwskQepkoolqcjeb95YOITKjzzd at udlqmbt61123Ceijo 2024 7:22amSeptember 2024 9:49amMetoprolol Succinate 25 mg tablet extended release 24 tjYgefwcgavaum48.5MGPOTwice zggol94464Sse 2024 8:38amSeptember 2024 9:50amSpironolactone 25 mg lgmitmLqmiumvfdhnj09CVFEXhcsg09008Lofr 2024 7:09amSeptember 2024 8:45amClopidogrel 75 mg tabletDiscontinued 75MGPODailyFebruary 2023 12:00amJuly 2023 12:25pmInsulin Aspart U- 100 (Novolog U-100 Insulin Aspart) 100 unit/mL wayvdinkNxfsllznpbge89HFII CNTSUBQINFDailyFebruary 2023 12:00amFebruary 2023 2:28pmper insulin pumpFurosemide 20 mg tabletDiscontinuedMGFebruary 2023 12:00amFebruary 2023 2:28pmAcetaminophen 500 mg NnnpvfFpftgegmoxre600YWPJCvfyp 6 hours as needed for painFebruary 2023 12:00amFebruary 2024 10:10am Fxaauajqmrrv-Ducjiaop-Gphvzm (Multivitamin 50 Plus) qptyniIjrqocmrysmc7VPKLK DailyFebruary 2023 12:00amJuly 2023 12:25pmOn Hold: duplicate Lactobacillus Acidophilus (Probacap) 10 billion cell nwagtfyZxhibbdlfkpt661GJO CELLSPODailyFebruary 2023 12:00amFebruary 2023 2:28pmInsulin Glargine (Lantus Solostar U-100 Insulin) 100 unit/mL (3 mL) Insulin Pen Grfylzxvmcpa35GOSIZBQZGEYwohviiOaoqfgiv 20th, 2024 12:00amJanuary 2024 7:12pmCholecalciferol (Vitamin D3) (Vitamin D3) 50 mcg (2,000 unit) tablet Afhugojfaziw71OXIYKYxqxyRcglwkxh 2023 12:00amApril 2023 1:44pm Pantoprazole (Protonix) 40 mg tablet,delayed release (DR/EC)Jydkqyloexot82PXGB Twice yszah104026Cewgwxdp 2023 12:00amMay 2023 12:22pm40 mg p.o. twice daily x 2 weeks, followed by 40 mg p.o. daily. Please dispense accordingly.Insulin Aspart U-100 (Novolog Flexpen U-100 Insulin) 100 unit/mL (3 mL) Insulin DrdQgceovdspynp0SSADZTZVBZ6k/Day with meals Protocol: *Carb coverage 1:10*Give 1 unit of rapid-acting insulin for every 10 gm of carbohydrates eaten at hyzta61Hzwbtukp 2023 12:00amApril 2023 1:44pm On Hold: medication in twice Please contact the information source for Protocol details.Insulin Glargine (Lantus Solostar U-100 Insulin) 100 unit/mL (3 mL) Insulin RmnYjxbbtyeipzw34CYYV JPSUVAOcpzi46Reslnbsc 2023 12:00amApril 2023 1:43pmOn Hold: medication in twiceInsulin Aspart U-100 (Novolog Flexpen U-100 Insulin) 100 unit/mL (3 mL) Insulin McnTmxbbu6WIMRFURMXL2O/Day with meals and bedtime Protocol: *If the [...] 400 mg/dl Dose/Route: 9 unit Instructions: Call Bztqycip88Jimtiehj 2023 12:00amPlease contact the information source for Protocol details.UnknownFurosemide 20 mg tablet Bpzzggdevnwl72GTAMYifrw as needed for as knsledtqxi0311Pxzwgpap 2023 10:53amApril 2023 7:40amValsartan 160 mg OuswxzFmphdqccrdrf81SFBBIcgrc2158 0February 2023 10:53amApril 2023 1:46pmMetronidazole 500 mg Tablet Ehvewdzypzxl393IGBGEjarc times foiox36755Aajufdzx 2023 12:00amApril 2023 7:41amBismuth Subsalicylate (Stomach Relief) 262 mg/15 mL Suspension Twzyavfrobzd509QRQDNmmt times csaso883.753265Nhqflrls 2023 12:00amApril 2023 7:40amTetracycline 250 mg JauqydaRbellutmqyxn610WUITIcyf times daily 579479Yrceikwr 2023 12:00amApril 2023 7:42amBlood Sugar Diagnostic uxlmrNtxfyp7007Fkhawhcc 2023 12:00amDiabetes mellitus Type 2 diabetes mellitus without complicationsFingerstick blood sugar ACHS Lancets tgamCpqjus9651Biybdocs 2023 12:00amDiabetes mellitus Type 2 diabetes mellitus without complicationsFingerstick blood sugar ACHSPen Needle, Diabetic (Bd Ultra-Fine Marichuy Pen Needle) 32 gauge x 5/32 needleActive 100February 2023 12:00amDiabetes mellitus Type 2 diabetes mellitus without complicationsSliding scale, carb coverage, long acting insulinTetracycline 500 mg gagrmflXgilcmholhah119NFUIOcqs times nmlnl7521 September 06, 2023 12:00amApril 2023 7:42amLisinopril 2.5 mg tablet Discontinued2.5MGPOEvery morningMay 16, 2024 12:00amSeptember 2024 8:44amOmeprazole 20 mg capsule,delayed release(DR/EC)Zaptqepobmta23FTOKJbcbz dailyMay 16, 2024 12:00amFebruary 2024 10:10amSacubitril-Valsartan (Entresto) 24-26 mg vjalnkLmnaayerbgia1JMAJBRnyuo dailyMay 16, 2024 12:00amDecember 2023 6:21pmSpironolactone 25 mg tcadtvQurcjmgghyyr75.5MGPO Every morningMay 16, 2024 12:00amDecember 2023 6:21pmTamsulosin 0.4 mg CapsuleDiscontinued0.4MGPOEvery eveningMay 16, 2024 12:00amFebruary 2024 10:09amMetoprolol Succinate 25 mg tablet extended release 24 hr Guarqlcyxgdf08.5MGPOTwice dailyMay 16, 2024 12:00amNovember 2023 9:49amMetoprolol Succinate 50 mg Tablet Extended Release 24 HxYlcsfoomsdyj49XQZK Twice pwqdx99831Wvieongk 2023 12:00amJan2024 7:14pmCephalexin 500 mg iauqlvrKvidjuohwpwz491HVECHmcaz akiwf8833Rydcxpqq 2023 12:00am June 21, 2024 10:95yuDlxgny-Lcoxmykp-Hcfghep (Pork) (Creon) 24,000-76,000 -120,000 unit capsule,delayed release(DR/EC)Cdhxuhhzbiip6ZCBDGUwksi times daily April 27, 2023 11:00pmOctnorton [facility] 2022 1:27pmTamsulosin 0.4 mg capsule Discontinued0.4MGPODailyOct2022 11:00pmOct2022 1:27pm Paroxetine Hcl 30 mg uwwcwuUviquxexjvxp42JDLEVtoarIievvag 17th, 2023 11:00pm May 07, 2023 1:27pmInsulin Glargine (Lantus Solostar U-100 Insulin) 100 unit/mL (3 mL) insulin qbmMjawgxhpvmmv77JLYKUFVXMLKtrqthwJsnepjo 17th, 2023 11:00pmMay 03, 2023 4:10pmInsulin Aspart U-100 (Novolog Flexpen U-100 Insulin) 100 unit/mL (3 mL) insulin hfqAxgcsnbhjjcd8SVQZVOGIBVbrpa daily before dinnerApril 27, 2023 11:00pmMay 03, 2023 4:10pmInsulin Aspart U-100 (Novolog Flexpen U-100 Insulin) 100 unit/mL (3 mL) insulin xliIwlcsdklpuvv0ROKG SUBCUTAfter breakfast and lunchOct2022 11:00pmMay 03, 2023 4:10pmLidocaine Hcl (Xylocaine) 10 mg/mL (1 %) SolutionDiscontinued0.1ML INTRADERMAPre-Op as needed for Venipuncture x 1 Pwml16Nalnbnj2022 11:00pm May 03, 2023 4:10pmAtorvastatin 80 mg NqlgkjMtoysnyxzzvm75VNVIKgacj qgdhoes51PerawcwMay 02, 2023 11:00pmOctober 27th, 2023 1:27pmSennosides (Senna Laxative) 8.6 mg QwfnawGgvctzyrkatu7AFBOWFvyyuou as needed for fxkjfyjlbgwq37 May 02, 2023 11:00pmOct2022 4:10pmAcetaminophen (Tylenol) 325 mg NhcykvKqpbwvleqzmr047AQSGK0I as needed for Pain Scale 1 - 3 or ukfyd73Frkuomd2022 11:00pmMay 03, 2023 4:10pmHydrocodone-Acetaminophen 5-325 mg TabletDiscontinued1 - 5SJHXNX7I as needed for Xbqe20Nlgiqif2022Oct2022 4:09pmValsartan 80 mg YwbepiYcnpuuanrdoz67GSIZRjirw74Zrblhnf 22nd, 2023 11:00pmOct2022 1:27pmAspirin 81 mg Tablet,Delayed Release (Dr/Ec)Kqisbptffosm35WQSIYbhnu99Zbdoutw 22nd, 2023 11:00pmOct2022 1:27pmAcetaminophen 500 mg AjxosqHlhffhcrteek468FYUXZ5J79Vfuqzko 22nd, 2023 11:00pmOct2022 1:27pmTriamcinolone Acetonide 0.1 % CreamDiscontinued1 APPLICTOPICALFour times daily as needed for Kmhsrtqssd83Xuthpmj2022 11:00pmOct2022 1:27pmPotassium Chloride (Klor-Con M20) 20 mEq Tablet,Er Particles/LrdrtpjfWandantqhxjd33KQDSBGFXM as needed for Fcjcafqkkyp69 May 02, 2023 11:00pmMay 03, 2023 4:10pmMagnesium Hydroxide (Milk Of Magnesia) 400 mg/5 mL SfdyjvzrkvQqulkxnulewc73IHKLRzfrr daily as needed for Qqqnottlcaxh81Sljwerm 22nd, 2023 11:00pmOct2022 1:27pmAscorbic Acid (Vitamin C) (Vitamin C) 500 mg LolukaFwwixylsvgku337WUZXKysym69Nzvhyyl 22nd, 2023 11:00pmOct2022 1:27pmBisacodyl 10 mg MtvltipnczkCchzdsiwuqvj18GM PRDaily as needed for Nhupbeugievd52Qcxrkgr 22nd, 2023 11:00pmMay 03, 2023 4:10pmNitroglycerin 0.4 mg Tablet, SublingualDiscontinued0.4VAKJPRJIHAWJB8X as needed for Chest Cfie53Keduhlm2022 11:002022 1:27pm Bisacodyl 5 mg Tablet,Delayed Release (Dr/Ec)Blflyhgdxcba44RULRVxrra as needed for Tvhvzopnoshy41Rwnzqwl 22nd, 2023 11:002022 4:10pmAlum-Mag Hydroxide-Simeth (Mag-Al Plus) 200-200-20 mg/5 mL XiepqmgvxrIcicfkowafix96CEMZ Q4H as needed for Epigastric distress (Non-Card)2022 11:00pm May 03, 2023 4:10pmEnoxaparin (Lovenox) 40 mg/0.4 mL QiaqwilSglksikzcnxw91 MGSUBCUTDAILY@[id number] 02, 2023 11:00pmMay 07, 2023 1:27pmInsulin Aspart U-100 (Novolog Flexpen U-100 Insulin) 100 unit/mL (3 mL) Insulin Pen Jlmaxqvmuwuq1NUSIFEPLWEZ0P/Day with meals and jwfexbs87Jpaxaku2022 11:00pmMay 03, 2023 4:10pmInsulin Aspart U-100 (Novolog Flexpen U-100 Insulin) 100 unit/mL (3 mL) Insulin HtmZhyalwnlxhua5VRHGIQYUEOT0r/Day with meals Protocol: *CARB COVERAGE 1:10*GIVE 1 UNIT OF ASPART FOR EVERY 10 GM CHO EATEN AT MEALSMay 02, 2023 11:pmMay 03, 2023 4:09pmPlease contact the information source for Protocol details.Calcium Carbonate-Vitamin D3 (Oyster Shell Calcium-Vit D3) 500 mg-5 mcg (200 unit) AibsqtVwpkvwjtmets7DBQAC8m/Day with scsmo67Pksmcuk2022 11:00pmMay 07, 2023 1:27pmInsulin Glargine (Lantus Solostar U-100 Insulin) 100 unit/mL (3 mL) Insulin XndNjghqrwvwrwb3LPLMA SUBCUTTwice wexyk60Xkapfgi 2022 11:00pmOctober 2022 1:27pm Hydrocodone-Acetaminophen 5-325 mg amkmvwGmdaviojgmvk4SLRRME0Q as needed for PainOctober 2022 4:09pmOctober 2022 1:27pmInsulin Aspart U-100 (Novolog Flexpen U-100 Insulin) 100 unit/mL (3 mL) insulin mkmPmscjbsnmliz1lcecq SUBCUTBefore meals and at bedtime Protocol: If the [...] than or = 400 mg/dL Dose/Route: 6 unitOctober 2022 4:09pmOctober 2022 1:27pmPlease contact the information source for Protocol details.Atorvastatin 80 mg Tablet Ztmblfxyvrmd22TREEIabtg suivimg75821Gjstdmf 26th, 2023 11:00pmApril 2023 1:45pmHydrocodone-Acetaminophen 5-325 mg NvetyeOdtpgloptbus0CFFFSO6V as needed for Jzvc1346Ysbdlug 2022February 2023 3:51pmAcute postoperative pain of hip Closed intertrochanteric fracture of right femur Other acute postprocedural pain Pain in unspecified hipAspirin 81 mg Tablet,Delayed Release (Dr/Ec)Fenhld35VUBU Lcekg14710Eiedbbh 2022 11:00pmUnknownAcetaminophen 500 mg Tablet Mtawcxahrfva527XUJFSyyzl 6 geroz186Zwlaiem 2022 11:00pmFebruary 2023 2:53pmAscorbic Acid (Vitamin C) (Vitamin C) 500 mg PezdopJlwuilsjmxit186QBIP Rpuev124Gtjinzs 2022 11:00pmFebruary 2023 2:28pmInsulin Aspart U-100 (Novolog Flexpen U-100 Insulin) 100 unit/mL (3 mL) Insulin PenDiscontinued1 sliding scale doseSUBCUTBefore meals and at vxaooot25466Tzaicem 2022 11:00pmFebruary 2023 2:28pmCalcium Carbonate-Vitamin D3 (Oyster Shell Calcium-Vit D3) 500 mg-5 mcg (200 unit) QfvkbhPvczjzmlqxvm6VHABM8y/Day with sxsny93773Gezuxpf 2022 11:00pmFebruary 2023 3:56pmNitroglycerin 0.4 mg Tablet, SublingualActive0.9HKDSSUSJWEPPL2P as needed for Chest Hlxg56354 May 06, 2023 11:00pmUnknownInsulin Glargine (Lantus Solostar U-100 Insulin) 100 unit/mL (3 mL) Insulin YyjEzvwowgpdrnt9AFOGHSEFPJHDwlko daily4.2300 May 06, 2023 11:00pmFebruary 2023 3:70anNugydi-Zeahphkl-Kkfodbv (Pork) (Creon) 24,000-76,000 -120,000 unit Capsule,Delayed Release(Dr/Ec)Active2 LXSWL4i/Day with jduxc368671Twenlwd 2022 11:00pmUnknownTriamcinolone Acetonide 0.1 % AcqjpRoebputufkac9FDETJIILMGIWTEnyf times daily as needed for Nxdoorsqpl713Rngvlxy 26th, 2023 11:00pmApril 2023 9:38amTamsulosin 0.4 mg CapsuleDiscontinued0.6QPOXBaskv04200Ecwxrgm 2022 11:00pmNovember 2023 12:54pmParoxetine Hcl 30 mg EfheddEgoosxlvljeo09BEFXLvamy91269Lznbncx 2022 11:00pmAugust 2023 9:09amValsartan 160 mg ZkabewWfjrigvkgcxu397AQZUUjfoq61 300October 2022 11:00pmFebruary 2023 2:28pmInsulin Aspart U-100 (Novolog Flexpen U-100 Insulin) 100 unit/mL (3 mL) Insulin FqaDsgmuzucjpto7QOLYB HVPPNH2x/Day with meals Protocol: *Carb coverage 1:10*Give 1 unit of rapid-acting insulin for every 10 gm of carbohydrates eaten at nuwwf29NxkuhtgMay 06, 2023 11:00pmFebruary 2023 2:28pmPlease contact the information source for Protocol details.Cyclobenzaprine 5 mg CmgevgZeioxmwhrqzp5EQBMW9F as needed for Muscle Deray58937SkiaeqvMay 06, 2023 11:00pmFebruary 2023 3:51pmFerrous Sulfate 324 mg (65 mg iron) Tablet,Delayed Release (Dr/Ec)Nbrfujmaikhn512CBVZGrflb22291Pvecmtn 26th, 2023 11:00pmFebruary 2023 3:51pmTicagrelor (Brilinta) 90 mg tabletDiscontinued 90MGPOTwice awhmu3210Uwuzwwu2023 12:00amFebruary 2023 2:28pm Nitroglycerin 0.4 mg tablet, sublingualDiscontinued0.1PGMLADKJSHNFS2Y as needed for chest qpqb130Nwvvttx2023 12:00ambruary 2023 2:28pmuntil response; do not exceed 3 doses per eventPantoprazole (Protonix) 40 mg tablet,delayed release (DR/EC)Uyuckqdlimol53YWIGAepie497157Qbh 2023 12:22pm February 08, 2024 12:25pm40 mg p.o. twice daily x 2 weeks, followed by 40 mg p.o. daily. Please dispense accordingly.Metoprolol Succinate (Toprol Xl) 25 mg tablet extended release 24 zbQmmmpboduiej27.5MGPOTwice dailyJuly 2023 11:00pm February 15, 2024 9:58amSpironolactone (Aldactone) 25 mg oualoqPwuuzncgeakq84DPEV Every morningJuly 2023 11:00pmt 2023 9:09am Ixkudz-Xlbhcrgl-Asxzvhb (Pork) (Creon) 24,000-76,000 -120,000 unit capsule,delayed release(DR/EC)Zqpzdjurxnoq4BXZAWAtzhk times daily as needed for gastrointestinal spasms or crampingJuly 2023 11:00pmFebruary 2024 10:08amadminister one cap with snacksSucralfate 1 gram MpxhhbErdlvhrtdwaq7GTFC Every 6 fqhug433255Ecps 2023 11:00pmOctober 2023 9:28am Spironolactone 25 mg NulcyhJnqqenvxiiyw59SCRJIwxam69881Bsjf 2023 11:00pm March 27, 2024 10:44amSacubitril-Valsartan (Entresto) 24-26 mg Tablet Cqizvwjhzfrf6XSQLNNnbej fxptx643286Tbfw 2023 11:00pmSeptember 2023 10:05amOn Hold: hypotensionPantoprazole (Protonix) 40 mg tablet,delayed release (DR/EC)Ezbqkeikuqcy55WLCDUxlsm rabwp465701Mdgw 2023 12:22pmNovember 2023 12:54pm40 mg p.o. twice daily x 2 weeks, followed by 40 mg p.o. daily. Please dispense accordingly.Pantoprazole (Protonix) [address] for susp in cwiabaVxlovhnzqaup04BHINOszyp rzeof209262Dvii 2023 11:00pmAugust 2023 9:08amCephalexin 500 mg wwapvtpUqmyxzhwjymb121GXZONgnsb times lzxsu1746 June 21, 2024 10:28amJanuary 2024 7:10pmSpironolactone 25 mg tablet Fwnbizefshbm78IMQVYfhnsWucgpbr 2024 12:00amFebruary 2024 10:09am Metoprolol Succinate 25 mg tablet extended release 24 zlLvztqohcqxbj18.5MGPO Twice dailyJanuary 2024 12:00amMarch 2024 8:20amInsulin Glargine (Lantus Solostar U-100 Insulin) 100 unit/mL (3 mL) Insulin ExnCccyin6PAVIBBCZKJ Daily at bedtime0.5100January 2024 12:00amUnknownFurosemide 20 mg Tablet Fdihumxynqeh68ROIPEjbhl at 2983604Wwsnozh 2024 12:00amJanuary 2024 11:47amParoxetine Hcl 40 mg xtulnsEitnjv78CWKZOcvts morningAugust 2023 11:00pmUnknownFurosemide (Lasix) 20 mg hofsrnQxfxiabtnzpq58IFZURnayuBoqwru 2023 11:00pmAugust 2023 9:58amMetoprolol Succinate 25 mg tablet extended release 24 daWaeynspcxzgo16.2WPRIGebxg36023Csdkeq 2023 11:00pmNovember 2023 12:54pmSpironolactone 25 mg qketqfNzmusdqkgnnj63.3AZDSLmasu73873Qkvcyuwly 2023 11:00pmNovember 2023 12:54pmLisinopril 2.5 mg tabletDiscontinued 2.0OVUSYellu89643Kixjtalzx 2023 11:00pmOctober 2023 12:21pm Empagliflozin (Jardiance) 10 mg bfuneeNpqfhhtfuyft73NLNKZwqop08795Euvtfwilc 2023 11:00pmNovember 2023 12:44pmAtorvastatin (Lipitor) 40 mg tablet Xshdpk92JSUBZkaoe at nascxlj94444Kllinufuy 2024 11:00pmUnknownMetoprolol Succinate 25 mg tablet extended release 24 sfGipnqh47.5MGPODaily at hudamyw66397 [place] 2024 11:00pmUnknownLoratadine (Claritin) 10 mg tablet Rwukotokuwcd0TVFMXLdwggQball 2023 11:00pmFebruary 2024 10:10am FreeTextSi tablet Orally Once a day; Note: Source Status: Taking; Provider: Houston Maradiaga ( )Cholecalciferol (Vitamin D3) 125 mcg/0.5 mL (5K unit/0.5mL) dcjhgOxpgak785ZOVXNZsvxgEdfit 2023 11:00pmUnknownLutein 6 mg roovmfbAbsxos8XZDJCzzyuRsiaq 2023 11:00pmgive with meal/snackUnknown Multivit With Min-Folic Acid (Centrum Adults) 12 mcg tablet,xridhiqwFjpygh2ORYEG DailyApril 2023 11:00pmUnknownValsartan 80 mg rhfpvfWitrpqbtkhvv01ZVQL Xfyik79455Zcizu 2023 11:00pmJuly 2023 12:25pmAtorvastatin 80 mg vguzxtJfkohttgzakn51RNDIFkpmq at oitufwf50331Ahouf 2023 11:00pmAugust 2023 7:12amDapagliflozin Propanediol (Farxiga) 10 mg wkevpuAfxxtbnjmgky07 MGPODailyFebruary 2024 12:00amSeptember 2024 8:44amLactobacillus Combination No.4 (Probiotic) 3 billion cell ewzbwwnUjsfkn1059BLW CELLSPODaily August 31, 2024 12:00amadminister with a mealUnknownSpironolactone 25 mg ufvtpuHeooakjpfxnd28.0OZULOdyub25265Qzwemykf 2024 12:00amApril 2024 8:58amSpironolactone 25 mg xkmukaLrmdikzcwche81AEJYYfpee92480Qlqqf 2024 11:00pmJuly 2024 7:09amTamsulosin (Flomax) 0.4 mg capsuleActive0.4MGPO DailyOctober 2024 11:00pmUnknown Immunizations Immunization Event Date Not Given Reason Dose Number 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 Lot Number Reason(s) Given Vaccine Information Statement (VIS) Detail Administration Location COVID-19 mRNA-1273 (Moderna) July 25, 2020 COVID-19 mRNA-1273 (Moderna)August 22OVI mRNA Bivalent Booster (Pfizer)May 262COVID-19 (PFIZER) 12Y and olderNovember 2022 Medical Equipment Device Date Implanted Device Details CL STENT BLANCA FRONTIER 3.5 X 18 July 16 Orthopaedic bone screw, non-bioabsorbable, non-sterileOctober 2022UDI: [id number] Issuing Agency: [facility] Device Id: [id number] nail, sterileOctober 2022UDI: [id number] Issuing Agency: [facility] Device Id: [id number] Expiration Date: 2032-10-09 Lot Number: [id number] bladeOctober 2022UDI: [id number] Issuing Agency: [facility] Device Id: [id number] Expiration Date: 2032-05-11 Lot Number: [id number] defibrillation leadNovember 2023UDI: [id number] Issuing Agency: [facility] Device Id: [id number] Expiration Date: 2027-02-08 Serial Number: [id number] implantable defibrillatorNovember 2023UDI: [id number] Issuing Agency: [facility] Device Id: [id number] Expiration Date: 2026-03-11 Serial Number: [id number]/interventricular septal pacing leadNovember 2023UDI: ()[id number] Issuing Agency: [facility] Device Id: [id number] Expiration Date: 2027-04-10 Serial Number: [id number] Vital Signs Vital Reading Result Reference Range Collection Date/Time Height 70 [in_i] March 27, 2025 9:49lhIxleww29.68 kgSeptember 2024 9:08amHeart Rate80 /cwf59-185Zduhyuufc 2024 9:08amRespiratory rate18 /cff79-48Xqnntffhu 2024 9:08amOxygen saturation by Pulse orypmcjc80 %95-100September 2024 9:08amBP Ylhjxzpx233 mm[Hg]100-140September 2024 9:08amBP Ridfftcnm91 mm[Hg]60-100September 2024 9:08amBMI (Body Mass Index)19.5 kg/s7Ngnhocodc 2024 9:24khDwsqkf76 [in_i]May 09, 2025 9:66klZrlrob28.68 kgOctober 2024 9:24amRespiratory rate18 /twv04-53Svxlerm 2024 9:24amBP Wgtsjvvp151 mm[Hg]100-140[facility] 2024 9:24amBP Kvpkxxlgn58 mm[Hg]60-100 May 09, 2025 9:24amBMI (Body Mass Index)18.9 kg/m5Rhtxrye 2024 9:24am Advance Directives Advance Directive Response Recorded Date/ Time Advance Directives No March 4:30pm Insurance Providers Guarantor Manolo Westfall Sber[place] Address [address] [facility] [address]Akox[place]m Info.Home Phone: Payer Group Member ID Coverage Type Subscriber Relationship to Subscriber Effective Date Expiration Date Medicare [id number] J Sberna Id: [id number] [address] [facility] [address] Home Phone: Email: [email or web address] Rehab-IP Part A [id number] J Sberna Id: [id number] [address] [facility] [address] Home Phone: Email: [email or web address] Encounters Encounter Location(s) Arrival/Admit Date Discharge/Departure Date Discharge/Departure Disposition Provider(s) Departed Physician/ Provider Office Visit -[facility] March 27, 2025 9:54am March 27, 2025 10:59am Discharged to home care or self care (routine discharge) Anat Perez MD Departed Physician/ Provider Office Visit -[facility] May 09, 2025 10:11am May 09, 2025 11:01am Discharged to home care or self care (routine discharge) Anat Perez MD Departed Clinical -Pacemaker Check June 11, 2025 1:48pm June 11, 2025 1:49pm Discharged to home care or self care (routine discharge) Anat Perez MD Recent Diagnosis Onset Date Admit Date Ischemic cardiomyopathy Unknown 2024 9:54am Type 1 diabetes mellitus Unknown 2024 9:54am Acute GI bleeding Unknown March 9:54am 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 wi Unknown March 27 9:54am Hypertension Unknown March 27, 2025 9:54am S/P PTCA (percutaneous trans luminal coronary angioplasty) Unknown March 27, 2025 9:54am H pylori ulcer Unknown May 09 10:11am Iron deficiency Unknown May 09 10:11am Ischemic cardiomyopathy Unknown May 09, 2025 10:11am Type 1 diabetes mellitus Unknown May 09, 2025 10:11am Acute GI bleeding Unknown May 09, 2025 10:11am Non-ST elevation myocardial infarction (NSTEMI), subendocardial infarction, Unknown May 09 10:11am 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 wi Unknown May 09, 2025 10:11am Hypertension Unknown May 09 10:11am S/P PTCA (percutaneous trans luminal coronary angioplasty) Unknown May 09, 2025 10:11am Assessments Diagnosis Onset Date Resolution Status Admit Date Ischemic cardiomyopathy acuteSeptember 2024 9:54amType 1 diabetes mellitusacuteSept2024 9:54amAcute GI bleedingresolvedSeptember 2024 9:54amCoronary artery disease involving seminole coronary artery of seminole heart wiinactiveSept2024 9:54amHypertensioninactiveSeptember 2024 9:54amS/P PTCA (percutaneous transluminal coronary angioplasty)inactiveSept2024 9:54amH pylori ulceracuteOctober 2024 10:11amIron deficiencyacuteOctober 2024 10:11amIschemic cardiomyopathyacuteOctober 2024 10:11amType 1 diabetes mellitusacuteOctober 2024 10:11amAcute GI bleedingresolvedOctober 2024 10:11amNon-ST elevation myocardial infarction (NSTEMI), subendocardial infarction,resolvedOctober 2024 10:11amCoronary artery disease involving seminole coronary artery of seminole heart wiinactiveOctober 2024 10:11amHypertensioninactiveOctober 2024 10:11amS/P PTCA (percutaneous transluminal coronary angioplasty)inactiveOctober 2024 10:11am Plan of Treatment Author Anat Perez [facility] HealthAuthoredSeptember 2024 11:27amAssessment: # CAD s/p PCI in Jul 2023. # Ischemic Cardiomyopathy s/p Sweet dual chamber ICD in May [address] Root. 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 Current smoker. [facility] 04/30/23 - Two-vessel coronary artery disease- 100% prox LAD occlusion; 80% D1; LCx has 50% prox stenosis with 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 Echo 04/28/23 - EF 40-45%, mild LVH, trace MR and TR. 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 EKG 09/07/23 - sinus peace 56 bpm, anterolateral TWI. EKG 09/08/23 - sinus peace 58 bpm, anterolateral and inferior TWI. ECHO in January 2024 at [facility]: EF 30-35% ECHO 03/09/2024: ECHO which showed persistently low EF 25-30% with anteroseptal and apical wall akinesis and moderate MR. Plan: - Ifeanyi has had a significant decline in function over the last few weeks. Complains of severe fatigue, dyspnea, light headedness, loss of balance and lack of appetite. - Will decrease Toprol dose to 12.5mg QHS; decrease lipitor to 40mg QHS to help with fatigue. - Check labs: CBC, CMP, BNP today - ECHO to evaluate LV function - Will refer to cardiac rehab in [place] for HFrEF given deconditioning - Advised to follow up with Dr Castro for his routine follow up. May need management for depression and appetite stimulation. - GDMT: Continue Lisinopril 2.5mg daily, Farxiga 10mg daily and Toprol 12.5mg QHS; spironolactone 25mg daily. - Following with Device [facility] every 3 months. Recent device interrogation shows normal renal function. - Follow up in 6 weeks in CHF clinic. Author Anat Perez [facility] HealthAuthoredOctn[facility] 2024 11:47amAssessment: # CAD s/p PCI in Jul 2023 # Ischemic Cardiomyopathy s/p Sweet dual chamber ICD in May [address] Root. 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 Current smoker. [facility] 04/30/23 - Two-vessel coronary artery disease- 100% prox LAD occlusion; 80% D1; LCx has 50% prox stenosis with 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 Echo 04/28/23 - EF 40-45%, mild LVH, trace MR and TR. 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 EKG 09/07/23 - sinus peace 56 bpm, anterolateral TWI. EKG 09/08/23 - sinus peace 58 bpm, anterolateral and inferior TWI. ECHO in January 2024 at [facility]: EF 30-35% ECHO 03/09/2024: ECHO which showed persistently low EF 25-30% with anteroseptal and apical wall akinesis and moderate MR. Plan: - Ifeanyi is feeling much better today. Eating better. Blood sugars under control s/p hospitalization. He is now on basal bolus insulin instead of insulin pump. Still c/o slight dyspnea, light headedness. Normotensive. - We will obtain records of his recent Hospitalization at [facility] in [place] 04/2025. - GDMT: Continue Toprol 12.5mg QHS. - Recent labs reviewed. Improved Creatinine from 2.4--->1.3 after holding lisinopril, spironolactone and Farxiga. - Will get ECHO to evaluate LV function - CAD: Continue aspirin 81 mg daily, Lipitor 40mg QHS - [facility] reports that cardiac rehab starts tomorrow in [place] for HFrEF given deconditioning - Continue routine follow up with Dr. Castro's team and Endocrinology. - He will be following up with Dr. Melchor (Urology) given recent Kimble in place with retention while at [facility]. He was with complaints of burning around site today, he will call Dr. Melchor to let them know this. - Following with Device Clinic every 3 months. Recent device interrogation shows normal function. - Follow up in 8 weeks in CHF clinic. Future Tests Future scheduled test information is unavailable Pending Tests Test Name Ordered Date Scheduled Date ECH echo transthoracic March 27, 2025 9:50 am Future Visits Future appointment information is unavailable Future Procedures Future procedure information is unavailable Future Medications Future medication information is unavailable Patient Instructions Patient instructions are unavailable
[2025-06-20] VITALS (22 sets, daily range): BP systolic 150–165; BP diastolic 60–78; PULSE 65–86; TEMP 36.6–37.6; O2SAT 93–98; BMI 19.4; BMI 18.7
--- NOTE | 2025-06-20 12:42 | XR_ITS ---
The [place] [id number] Patient Name: ASHWINI VICKERS MRN: [id number] date: 1935 Sex: M Assigned Patient Location: ER Current Patient Location: ED.MAIN Accession/Order Number: [id number] Exam Date: 06/20/2025 13:00 Report Date: 06/20/2025 13:29 At the request of: KESHA GUTIÉRREZ MD Procedure: XR lumbar spine 2-3V LUMBAR SPINE - 2 views COMPARISON: CT 04/10/2025 and plain films 11/05/2023 CLINICAL DATA: Patient fell 2 weeks ago and has continued back pain. AP and lateral views were obtained. There is osteopenia. There is levoscoliotic curvature. No obvious acute compression fractures are identified. There is still slight retrolisthesis of L1 on L2 and L2 on L3. There is mild multilevel disc space narrowing. There are small endplate spurs as well as facet hypertrophy, greater distally. The SI joints, as visualized appear intact. There are multiple hemostasis clips in the prevertebral region. Atherosclerotic plaque is present at the aorta and iliac arteries. There is diffuse air within nondistended small and large bowel loops. XR/XR lumbar spine 2-3V IMPRESSION: OSTEOPENIA, SCOLIOSIS AND DEGENERATIVE CHANGES. NO DEFINITE ACUTE BONY INJURY HOWEVER FOLLOW-UP IS RECOMMENDED, SYMPTOMS WARRANT. Impression dictated by: Sofia Rosales M.D. 06/20/2025 1:29 PM Dictation Location: [place] [address] Electronically authenticated by: [id number] Y Date: 06/20/2025 13:29
--- NOTE | 2025-06-20 12:42 | ECG_ITS ---
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 Measurements Intervals [place] Rate: 70 P: 150 OK: 138 QRS: 80 QRSD: 100 T: 90 QT: 396 QTc: 416 Interpretive Statements 1200 Atrial rhythm [address] depression 4364 Twave abnormality, possible anterolateral ischemia 7300 Indeterminate axis 9150 abnormal ECG Compared to ECG 04/18/2025 08:34:01 Indeterminate axis now present Atrial fibrillation no longer present ST (T wave) deviation still present Possible ischemia still present Electronically Signed On 06-20-2025 14:21:29 EST by ASIYA ROACH M.D.
--- NOTE | 2025-06-20 12:42 | XR_ITS ---
The [address] [address] Patient Name: ASHWINI VICKERS MRN: [id number] date: 1935 Sex: M Assigned Patient Location: ER Current Patient Location: ED.MAIN Accession/Order Number: [id number] Exam Date: 06/20/2025 13:00 Report Date: 06/20/2025 13:32 At the request of: KESHA GUTIÉRREZ MD Procedure: XR thoracic spine 2V THORACIC SPINE -2 views: CLINICAL HISTORY: Back pain since fall 2 weeks ago COMPARISON: None AP and lateral views were obtained. There is osteopenia. There is slight dextroscoliotic curvature. There is slight wedge deformity of a midthoracic vertebral body. There are no priors to confirm chronicity. No displacement is seen. The pedicles are intact. Tiny endplate spurs are present. There are no paraspinal soft tissue abnormalities. XR/XR thoracic spine 2V IMPRESSION: OSTEOPENIA, SCOLIOSIS AND DEGENERATIVE CHANGE. MILD MID THORACIC COMPRESSION DEFORMITY OF UNKNOWN CHRONICITY. Impression dictated by: Sofia Rosales M.D. 06/20/2025 1:32 PM Dictation Location[facility] Electronically authenticated by: [id number] Y Date: 06/20/2025 13:32
--- NOTE | 2025-06-20 12:43 | ED.GENADUL1 ---
HPI HPI - General Adult General Chief complaint: Back Pain/Injury Stated complaint: BACK PAIN SHAKEY Time Seen by Provider: 06/20/25 12:37 Source: patient Mode of arrival: Wheelchair History of Present Illness HPI narrative: 89-year-old male presents for lower back pain. He states has been hurting for a few weeks since he fell onto his buttocks. After he fell he went to [place] and came back home. Before he went to [place] he had a urologic procedure and had a catheter in place. He has not had the catheter for about a month. No dysuria or hematuria or fever but she has been shaky. Related Data Home Medications ?Medication ?Instructions ?Recorded ?Confirmed kjmzof-xxoyhrgh-xbpsvf(pork)24,000-76,000-120,000 2 cap PO TIDWM 08/21/23 06/20/25 unit capsule,del rel (Creon) nitroglycerin 0.4 mg sublingual 0.4 mg sublingual Q5M PRN chest 08/21/23 06/20/25 tablet pain atorvastatin 40 mg tablet 40 mg PO .qhs 04/10/25 06/20/25 blood-glucose sensor (Dexcom G7 04/10/25 04/10/25 Sensor device) insulin pump cart,auto,BT,G6/7 04/10/25 04/10/25 (Omnipod 5 G6-G7 Pods (Gen 5) subcutaneous cartridge) Previous Rx's ?Medication ?Instructions ?Recorded aspirin 81 mg chewable tablet 81 mg PO QD #0 tabs 04/13/25 glucagon 1 mg solution for 1 mg IV Q15M PRN Hypoglycemia #0 ea 04/13/25 injection (Glucagon Emergency Kit) insulin aspart U-100 100 unit/mL 3 - 15 unit (0.03 - 0.15 mL) 04/13/25 (3 mL) subcutaneous pen (Novolog subcut ACHS #0 mL FlexPen U-100 Insulin aspart) insulin glargine 100 unit/mL (3 15 unit (0.15 mL) SQ QD #0 mL 04/13/25 mL) subcutaneous pen (Lantus Solostar U-100 Insulin) losartan 25 mg tablet 25 mg PO DAILY #30 tabs 04/13/25 metoprolol succinate 25 mg 25 mg PO DAILY #0 tabs 04/13/25 tablet,extended release 24 hr paroxetine HCl 40 mg tablet 20 mg (1/2 x 40 mg) PO .qd #0 tabs 04/13/25 tamsulosin 0.4 mg capsule 0.4 mg PO QD #0 caps 04/13/25 Allergies Allergy/AdvReac Type Severity Reaction Status Date / Time No Known Drug Allergies Allergy Verified 06/20/25 12:25 Opioid HPI Opioid Management Most Recent Opioid Data: Last Pain Scale 10 Today, 12:27 Last Pain Intensity 0 04/13/25, 11:52 Last ORT Total Score 0 04/10/25, 05:44 Last ORT Risk Category Low Risk 04/10/25, 05:44 Review of Systems ROS Narrative A ten point review of systems is negative except as noted above. [facility] Medical History (Updated 06/20/25 @ 15:07 by Alexandro Dobson MD) H/O chronic pancreatitis ?Z87.19 - Personal history of other diseases of the digestive system (ICD-10) CAD (coronary artery disease) ?I25.10 - Atherosclerotic heart disease of pala coronary artery without angina pectoris (ICD-10) Insulin dependent diabetes mellitus Atherosclerosis ?I70.90 - Unspecified atherosclerosis (ICD-10) Closed fracture of right hip requiring operative repair ?S72.001A - Fracture of unspecified part of neck of right femur, initial encounter for closed fracture (ICD-10) Diabetes ?E11.9 - Type 2 diabetes mellitus without complications (ICD-10) Surgical History (Updated 08/22/23 @ 10:52 by Lamar Mahan) H/O heart artery stent ?Z95.5 - Presence of coronary angioplasty implant and graft (ICD-10) 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 (ICD-10) 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) Family History (Updated 04/10/25 @ 05:51 by Thania Zhang RN) Other Family history of myocardial infarction Social History (Updated 04/10/25 @ 05:52 by Thania Zhang RN) Within the past year, how often did you have a drink containing alcohol: monthly or less Smoking status: Former smoker Non-prescribed substance use: denies use Highest level of school completed/degree received: some college, no degree Are you now , , , , never or living with a partner: In a typical week, how many times do you talk on the telephone with family, friends, or neighbors: twice per week How often do you get together with friends or relatives: twice per week Little interest or pleasure in doing things: not at all Feeling down, depressed, or hopeless: not at all Feel stressed/tense/nervous/anxious/difficulty sleeping: to some extent Do you think of yourself as: straight/heterosexual Gender Identity: male Exam Narrative Exam Narrative: Nurses note and vital signs reviewed General:The patient appears well and in no apparent distress. Patient is resting comfortably on cart. Skin:Warm, dry, no pallor noted.There is no rash noted. Head:Normocephalic, atraumatic Eye: Normal conjunctiva, no drainage Ears, Nose, Mouth, and Throat: oral mucosa is moist. Nares patent. Cardiovascular:Regular Rate and Rhythm Respiratory:Patient is in no distress, no accessory muscle use, lungs are clear to auscultation, no wheezing, rales or rhonchi Back: His back is examined there is no bruise rash or abrasion. He has some tenderness in the lower thoracicand upper lumbar area. GI: Soft and nontender Musculoskeletal: The patient has no evidence of calf tenderness, no pitting edema, symmetrical pulses noted bilaterally Neurological:A&O, normal speech, tremorous Psychiatric:Cooperative Constitutional Vital Signs, click to edit/add: Last Vital Signs Temp 99.7 F 06/20/25 13:50 Pulse 66 06/20/25 12:27 Resp 18 06/20/25 12:27 BP 150/77 H 06/20/25 12:27 Pulse Ox 94 L 06/20/25 12:27 O2 Del Method Room Air 06/20/25 12:27 Course Vital Signs Vital signs: Vital Signs Temperature 98.0 F 06/20/25 12:27 Pulse Rate 66 06/20/25 12:27 Respiratory Rate 18 06/20/25 12:27 Blood Pressure 150/77 H 06/20/25 12:27 Pulse Oximetry 94 L 06/20/25 12:27 Oxygen Delivery Method Room Air 06/20/25 12:27 Temperature 99.7 F 06/20/25 13:50 Pulse Rate 66 06/20/25 12:27 Respiratory Rate 18 06/20/25 12:27 Blood Pressure 150/77 H 12/10/25 12:27 Pulse Oximetry 94 L 06/20/25 12:27 Oxygen Delivery Method Room Air 06/20/25 12:27 Medical Decision Making MDM Narrative Medical decision making narrative: WBC is elevated and he has urinary tract infection. X-ray showed no fractures, uncertain age of mid thoracic compression fracture but he has no pain in that area. Blood cultures were obtained and then he was given IV Rocephin and is being admitted. Treatment diagnosis and disposition were discussed with the patient. CT of his abdomen is pending. Differential Diagnosis Differential Diagnosis: UTI, lumbar fracture, acute kidney injury Lab Data Lab results reviewed: Yes I reviewed the patient's lab results Labs: Lab Results 06/20/25 06/20/25 Range/Units 13:00 13:45 WBC 17.5 H (4.0-11.0) 10^3/uL RBC 3.36 L (4.70-6.10) 10^6/uL Hgb 9.2 L (14.0-18.0) g/dL Hct 27.1 L (42.0-54.0) % MCV 80.7 (80.0-94.0) fL MCH 27.4 (25.9-34.0) pg MCHC 33.9 (29.9-35.2) g/dL RDW 14.8 (11.0-15.0) % Plt Count 285 (150-450) 10^3/uL MPV 12.3 (9.5-13.5) fL Seg Neuts % (Manual) 90.0 H (43.0-75.0) Lymphocytes % (Manual) 6.0 L (20.5-60.0) % Monocytes % (Manual) 4.0 (1.7-12.0) % Eosinophils % (Manual) 0.0 L (0.9-7.0) % Basophils % (Manual) 0.0 L (0.2-2.0) % Neutrophils # (Manual) 15.75 H (1.4-6.5) 10^3/uL Lymphocytes # (Manual) 1.05 L (1.20-3.80) 10^3/uL Monocytes # (Manual) 0.70 (0.30-0.80) 10^3/uL Eosinophils # (Manual) 0.00 (0.00-0.70) 10^3/uL Basophils # (Manual) 0.00 (0.00-0.10) 10^3/uL Sodium 130 L (136-145) mmol/L Potassium 4.6 (3.5-5.1) mmol/L Chloride 96 L (98-107) mmol/L Carbon Dioxide 22.7 (21.0-32.0) mmol/L Anion Gap 15.9 BUN 70.0 H (7.0-18.0) mg/dL Creatinine 1.70 H (0.70-1.30) mg/dL Est GFR ( Amer) 46 L (>=60 mL/min/1.73m^2) Est GFR (Non-Af Amer) 38 L (>=60 mL/min/1.73m^2) BUN/Creatinine Ratio 41.2 Glucose 320 H (74-106) mg/dL Calcium 8.5 (8.5-10.1) mg/dL Urine Color Yellow (YELLOW) Urine Clarity Cloudy A (CLEAR) Urine pH 6.0 (5.0-9.0) Ur Specific [place] 1.010 (1.005-1.025) Urine Protein Trace (NEG/TRACE) mg/dL Urine Glucose (UA) Negative (NEGATIVE) mg/dL Urine Ketones Negative (NEGATIVE) mg/dL Urine Occult Blood Small A (NEGATIVE) Urine Nitrite Negative (NEGATIVE) Urine Bilirubin Negative (NEGATIVE) Urine Urobilinogen 0.2 (0.2-1.0) EU/dL Ur Leukocyte Esterase Large A (NEGATIVE) Urine RBC 2-5 A (0-2) #/HPF Urine WBC >100 A (NONE SEEN) #/HPF Ur Squamous Epith Cells Rare (NONE/RARE) #/LPF Urine Crystals None seen (None Seen) #/HPF Urine Bacteria Large A (NONE SEEN) #/HPF Urine Casts None seen (NONE SEEN) #/LPF Urine Mucus None seen (NONE SEEN) Ur Culture Indicated? Yes-[facility] Imaging Data Thoracic, lumbar: Radiologist's impression: ITS Impressions Lumbar Spine X-Ray 06/20/25 12:42 IMPRESSION: OSTEOPENIA, SCOLIOSIS AND DEGENERATIVE CHANGES. NO DEFINITE ACUTE BONY INJURY HOWEVER FOLLOW-UP IS RECOMMENDED, SYMPTOMS WARRANT. Impression dictated by: Sofia Rosales M.D. 06/20/2025 1:29 PM Dictation Location: [employer] Electronically authenticated by: [id number] Y Date: 06/20/2025 13:29 Thoracic Spine X-Ray 06/20/25 12:42 IMPRESSION: OSTEOPENIA, SCOLIOSIS AND DEGENERATIVE CHANGE. MILD MID THORACIC COMPRESSION DEFORMITY OF UNKNOWN CHRONICITY. Impression dictated by: Sofia Rosales M.D. 06/20/2025 1:32 PM Dictation Location: [employer] Electronically authenticated by: [id number] Y Date: 06/20/2025 13:32 ECG Data Attestation: I personally reviewed and interpreted this ECG as follows: (EKG on my interpretation shows sinus rhythm with rate of 70.) Discharge Plan Discharge Chief Complaint: Back Pain/Injury Clinical Impression: Urinary tract infection, Leukocytosis Patient Disposition: Admitted as Observation Time of Disposition Decision: 15:06 Condition: Good
[2025-06-20 13:08] LABS: Hematocrit 27.1 % (42.0-54.0); Hemoglobin 9.2 g/dL (14.0-18.0); Mean Corpuscular HGB Conc 33.9 g/dL (29.9-35.2); Mean Corpuscular Hemoglobin 27.4 pg (25.9-34.0); Mean Corpuscular Volume 80.7 fL (80.0-94.0); Platelet Count 285 10^3/uL (150-450); Red Blood Count 3.36 10^6/uL (4.70-6.10); White Blood Count 17.5 10^3/uL (4.0-11.0)
[2025-06-20 13:21] LABS: Anion Gap 15.9; Blood Urea Nitrogen 70.0 mg/dL (7.0-18.0); Calcium 8.5 mg/dL (8.5-10.1); Carbon Dioxide 22.7 mmol/L (21.0-32.0); Chloride 96 mmol/L (98-107); Estimated GFR (African America 46 (>=60 mL/min/1.73m^2); Estimated GFR (Non-African Ame 38 (>=60 mL/min/1.73m^2); Glucose 320 mg/dL (74-106); Potassium 4.6 mmol/L (3.5-5.1); Sodium 130 mmol/L (136-145)
--- OUTSIDE RECORDS SUMMARY | 2025-06-20 13:33 | XMS_ITS | CCD ---
Author Organization [facility] Care Team Providers Care Finish Patcher Name Role Phone Marie Tejeda Primary Care Provider [phone] DELON CARRION Admitting Unavailable DELON CARRION Attending Unavailable KINGS FRANCIS Consulting Unavailable MARIE TEJEDA Primary Care Unavailable JOSE A, DR FRANCO [...] ILEANA, DR SALAZAR Consulting Unavailable DO Marie Tejeda Primary Care Provider JO Rivas Emergency Provider DO Sushant Cordon Admit Provider [phone] DO Sushant Cordon Attending Provider MD Ashwini Conrad Other Provider [phone] MD Chuck Velasco Other Provider [phone] MD Anat Perez Other Provider MD Humberto Diaz Attending Provider [phone] MD Tru Yap Other Provider MD Fredi Medrano Admit Provider [phone] MD Fredi Medrano Attending Provider KARIN Rios [...] Other Provider MD Audi Gaming Other Provider [phone] MD Cecily Keen Other Provider AMADA Wright Other Provider [phone] MD Daniel Reyes Other Provider MD Roberto Sevilla Other Provider MD Humberto Diaz Other Provider MD Marzena Otto Other Provider DO Gray Gilliam Other Provider [phone] MD Mc Cornejo Other Provider MD [...] Provider MD Nayeli Jimenez Other Provider AMADA Berman Other Provider AMADA Pimentel Other Provider MD Vidya Robert Other Provider MD Howard Burrell Other Provider DO Jeevan John Other Provider AMADA Murdock Other Provider DO Mauricio Drake Other Provider KARIN Morillo Other Provider Unavailable Ashwini Conrad Unavailable Marie Tejeda DO Primary Care Provider DO Marie Tejeda Primary Care Provider JO Rivas Emergency Provider DO Sushant Cordon Admit Provider MD Ashwini Conrad R Other Provider MD Chuck Velasco Other Provider MD Anat Perez Other Provider MD Humberto Diaz Attending Provider MD Tru Yap Other Provider MD Fredi Medrano Admit Provider [phone] MD Fredi Medrano Attending Provider [phone] KARIN Rios Other Provider Unavailable KARIN Velazquez [...] Provider MD Nayeli Jimenez Other Provider AMADA Berman Other Provider AMADA Pimentel Other Provider [phone] MD Vidya Robert Other Provider MD Howard Burrell Other Provider DO Jeevan John Other Provider [phone] AMADA Murdock Other Provider Vidal, Catherinedontae Other Provider KARIN Morillo Other Provider Unavailable MD Ashwini Conrad Attending Provider [phone] PROVIDER, UNKNOWN Attending Unavailable PROVIDER, UNKNOWN Admitting Unavailable MD Chuck Velasco Other Provider [phone] DO Federico Davis Attending Provider MD Herminio Lakhani Attending Provider Anat Perez Unavailable DO Marie Tejeda Primary Care Provider DO Federico Davis Attending Provider MD Herminio Lakhani Attending Provider MD Audi Gaming Admit Provider MD Alberto Shearer Other Provider MD Beka Roland Other Provider MD Tru Yap Other Provider MD Vidya Robert Attending Provider MD Audi Gaming Attending Provider MARYANN Flores Attending Provider DO Marie Tejeda Primary Care Provider [phone] GOVIND DAVIS Attending Unavailable MARIE TEJEDA Primary Care Unavailab GOVIND Sarmiento Referring Unavailable SAMMY BERMAN Attending Unavailable GOVIND DAVIS Referring Unavailable MARIE TEJEDA Primary Care Unavailab SAMMY Sosa Attending Unavailable SAMMY BERMAN Referring Unavailable MARIE TEJEDA Primary Care Unavailab le DO Marie Tejeda Primary Care Provider Provider, None Primary Care Unavailable Arian Balderas Admitting Unavailable Arian Balderas Attending Unavailable Provider, None Primary Care Unavailable Arian Balderas Admitting Unavailable Arian Balderas Attending Unavailable Provider, None Primary Care Unavailable Arian Balderas Admitting Unavailable Arian Balderas Attending Unavailable HERNANDEZ, PERCY WASHINGTON R Admitting Unavailab le HERNANDEZ, PERCY THAISA R Attending Unavailab KEAGAN Yee Referring Unavailable GOVIND CLEMENT Consulting Unavailable JEEVAN LYNN Consulting Unavailable FATMATA BALDWIN Consulting Unavailable MAGDALENE PARMAR Referring Unavailable DO Marie Tejeda Primary Care Provider MD Alberto Shearer Attending Provider [phone] MD Paige Luther Emergency Provider DO Sushant Cordon Admit Provider [phone] DO Sushant Cordon Attending Provider MD Manuel Barraza Other Provider [phone] DO Warren Gross Attending Provider DO Mraie Tejeda Primary Care Provider MD Anat Perez Attending Provider DO Warren Gross Other Provider MD Anat Perez Referring Provider [phone] MD Anta Perez Referring Provider Marie Tejeda DO Primary Care Provider Marie Tejeda DO Unavailable [phone] Chirag OGLESBY, Patrick Unavailable Mitchel OGLESBY, Andrey Caballero Unavailable [phone] Saúl Davis MD Unavailable MD Abdulaziz Root Attending Provider PATRICK BEARD Attending Unavailable MANUEL BARRAZA Referring Unavailable DO Marie Tejeda Primary Care Provider DO Warren Gross Attending Provider DO Marie Tejeda Primary Care Provider MD Anat Perez Attending Provider MD Anat Perez Referring Provider MD Abdulaziz Root Attending Provider Marie Tejeda DO Primary Care Provider Anat Perez MD Attending Provider [phone] Anat Perez MD Referring Provider Abdulaziz Root MD Attending Provider Ivett OGLESBY, Abdulaziz Admit Provider Marie Tejeda DO Mosby Primary Care Provider Cally UTILITY SYSTEM OPERATOR, Yuerong Unavailable Marie Tejeda DO Primary Care Provider Vargas Reis APRN Emergency Provider Jose Alfredo Brantley MD Admit Provider Jose Alfredo Brantley MD Attending Provider Gray Higgins MD Other Provider Sushant Cordon DO Admit Provider Sushant Cordon DO Attending Provider Stephanie Sheridan DO Other Provider Beto Russo MD Other Provider Thierno Corrales DO Other Provider Bertin Smith DO Emergency Provider Indra Burgess MD Admit Provider Indra Guillory MD Attending Provider Lisa Hidalgo MD Attending Provider [phone] Cally YBARRA.UTILITY SYSTEM OPERATOR, Yuerong Unavailable Marie Tejeda DO Primary Care Provider Ileana CURTIS, Marie Primary Care Provider Bertin Smith DO Emergency Provider Queenie Guillory MD, Indra Morrow Admit Provider Lisa Hidalgo MD Attending Provider Saúl Davis MD Unavailable Cally SENIOR DYNAMICS CRM DEVELOPER.UTILITY SYSTEM OPERATOR, Brandonng Unavailable Ileana CURTIS, Marie Primary Care Provider [phone] Ana OGLESBY, Anat Other Provider Abdulaziz Root MD Attending Provider Vassunithak, Marie Primary Care Unavailable Stephanie Sheridan Consulting Unavailable Sushant Cordon Attending Unavailabl e Sushant Cordon Admitting Unavailabl Beto Collins Consulting Unavailable Thierno Corrales Unavailable Vaschak, Marie Primary Care Unavailable Ana, Anat Attending Unavailable Ana, Anat Admitting Unavailable Vaschak, Marie Primary Care Unavailable Almahameed, Soufian Attending Unavailable Almahameed, Soufian Admitting Unavailable Vaschak, Marie Primary Care Unavailable Ana, Anat Referring Unavailable Almahameed, Soufian Admitting Unavailable Almahameed, Soufian Attending Unavailable Vaschak, Marie Primary Care Unavailable Ana, Anat Attending Unavailable Ana, Anat Admitting Unavailable Vaschak, Marie Primary Care Unavailable Almahameed, Soufian Attending Unavailable Almahameed, Soufian Admitting Unavailable Vaschak, Marie Primary Care Unavailable Ana, Anat Attending Unavailable Ana, Anat Admitting Unavailable Vaschak, Marie Primary Care Unavailable Ana, Anat Attending Unavailable Ana, Anat Admitting Unavailable Ana, Anat Referring Unavailable Vaschak, Marie Primary Care Unavailable Almahameed, Soufian Attending Unavailable Almahameed, Soufian Admitting Unavailable Vaschak, Marie Primary Care Unavailable Gray Higgins Consulting Unavailable Jose Alfredo Brantley Attending Unavailable Jose Alfredo Brantley Admitting Unavailable Indra Guillory E Admitting Unavailab le Vaschak, [facility] Care Unavailable Lisa Hidalgo Attending Unavailable Chela Charles Consulting Unavailable Guille, Yves Consulting Unavailable Chuck Velasco Consulting Queenie Perez, Anat Consulting Unavailable Ana OGLESBY, Anat Attending Provider SALVADOR NARANJO Primary Care Physician ILEANA, MARIE Westfall Attending Unavailable VASCHAK, MARIE Westfall Attending Unavailable VASCHAK, MARIE Westfall Referring Unavailable VASCHAK, MARIE Westfall Referring Unavailable WARMARGA PAIGE Attending Unavailable VASCHAK, MARIE Westfall Attending Unavailable VASCHAK, MARIE Westfall Referring Unavailable VASCHAK, MARIE Westfall Attending Unavailable BETO GARCIA Attending Unavailable STEPHANIE SHERIDAN Attending Unavailable VASCHAK, MARIE Westfall Referring Unavailable YOMI CHONG Attending Unavailable VASCHAK, [facility] Unavailab AYANA Dudley Referring Unavailable VASCHAK, [facility] Unavailab AYANA Dudley Attending Unavailable VASCHAK, [facility] Unavailab AYANA Dudley Referring Unavailable AYANA ZAVALA Attending Unavailable VASCHAK, [facility] Unavailab AYANA Dudley Attending Unavailable AYANA ZAVALA Referring Unavailable VASCHAK, [facility] Unavailab le CALLY, YUEROARSLAN Referring Unavailable AYANA ZAVALA Attending Unavailable VASCHAK, [facility] Unavailab le VASCHAK, [facility] Unavailab le VASCHAK, [facility] Unavailab le VASCHAK, [facility] Unavailab AYANA Dudley Attending Unavailable Chirag [facility] Un[facility] [phone] Andrey Grullon MD Unavailable Saúl Davis MD Unavailable [phone] Almita Deras DO Unavailable Mely Rollins Attending Unavailable Tristan MELCHOR Attending Unavailable Tristan MELCHOR Attending Unavailable Tristan MELCHOR Referring Unavailable Tristan MELCHOR Attending Unavailable Tristan MELCHOR Attending Unavailable Mely Rollins Attending Unavailable Medications Current Medications MedicationDrug Class(es)DatesSig (Normalized)Sig (Original)[id number] 200 actuat albuterol 0.09 mg/actuat metered dose inhaler (17 sources)beta2-Adrenergic AgonistStart: 07-20-2024 End: 99-69-0341otlh 2 puff(s) by inhalation every four hours for wheezing albuterol HFA (ProAir HFA) 90 mcg/act inhaler Indications: Bronchitis Inhale 2 puffs every 4 (four)hours if needed for wheezing or shortness of breath 8.5 g 07/20/2024 07/20/2025 ActiveamLODIPine 5 mg oral tablet (2 sources)Dihydropyridine Calcium Channel BlockerStart: 29-33-7582mhzo 1 tablet by mouth once dailyamLODIPine (NORVASC) 5 MG tablet Take 1 tablet by mouth daily 30 tablet 3 01/07/2022 ActiveStart: 16-92-5314dnda 1 tablet by mouth once daily amLODIPine (NORVASC) 5 MG tablet Take 1 tablet by mouth daily 30 tablet 3 01/07/2022 ActiveStart: 69-76-5855jxep 5 mg by mouth once daily5 mg, Oral, DAILY, First dose on 01/04/22 at 1500, Until Discontinuedamylase 309527 unt / lipase 69239 unt / protease 35342 unt delayed release oral capsule (20 sources)Start: 68-87-3567Bodob 24,000 units oral delayed release capsule Refills(s) 0 Start Date: 04/25/25 Status: Ordered Medication Dispense Status: Completed Total Allowed Fills: 1 Fills Dispensed: 0Start: 04-09-2025 End: 28-44-5709mtcawxygfmpm, Uqq-Cbnt-Dbwx, (Creon) 00509-40929 units capsule Indications: Pancreatic insufficiency (HCC) TAKE 2 CAPSULES BY MOUTH DAILY WITH MEALS AND 1 WITH 2 SNACKS DAILY DIRECTED 250 capsule 05/02/2025 ActiveStart: 89-00-4864ggakgzrhoewm, Rml-Babx-Xanx, (Creon) 71678-05678 units capsule Indications: Pancreatic insufficiency (HCC) TAKE 2 CAPSULES BY MOUTH DAILY WITH MEALS AND 1 WITH 2 SNACKS DAILY DIRECTED 250 capsule 03/05/2025 ActiveStart: 50-79-4773hsqwicndblui, Gju-Cskw-Mrvy, (Creon) 92766-09436 units capsule Indications: Pancreatic insufficiency (HCC) TAKE 2 CAPSULES BY MOUTH DAILY WITH MEALS AND 1 CAPSULE BY MOUTH WITH SNACKS DIRECTED 240capsule 3 08/15/2024 ActiveStart: 92-28-3265axfclhjfmghq, Bir-Rdsm-Edgn, (Creon) 24743-50601 units capsule Indications: Pancreatic insufficiency (CMS/HCC) TAKE 2 CAPSULES BY MOUTH DAILY WITH MEALS AND 1 CAPSULE BY MOUTH WITH SNACKS [id number] capsule 3 01/25/2024 ActiveStart: 64-74-7537yxsw 44699-80543 capsules by mouth once Xxzfgm-Woauiaji-Mbgshgd (Pork) (Creon) 24,000-76,000 -120,000 unit Capsule,Delayed Release(Dr/Ec) Active 2 CAP PO 3x/Day with meals 120 30 0 May 07, 2023 12:00am Complies with drug therapyStart: 05-02-2018 End: 74-74-4613yjgt 1 capsule by mouth three times daily as needed for muscle hpatysYqgiqh-Hoidowch-Ercpnjm (Pork) (Creon) 24,000-76,000 -120,000 unit capsule,delayed release(DR/EC) Discontinued 1 CAP PO Three times daily as needed for gastrointestinal spasms or cramping February 05, 2024 12:00am August 31, 2024 11:08am administer one cap with advxazszomjv-uyhvtgri-szuqhpt (CREON) 17524-32832 units delayed release capsule Take 12,000 Units by mouth take with snacks 0 Activeaspirin 81 mg oral capsule (20 sources)Platelet Aggregation Inhibitor, Nonsteroidal Anti-inflammatory Drug Start: 81-10-3519qals 1 mg by mouth every twenty-four hoursaspirin 81 mg oral capsule mg cap(s), Oral, q24hr, Refills(s) 0 Start Date: 04/25/25 Status: Ordered Medication Dispense Status: Completed Total Allowed Fills: 1 Fills Dispensed: 0Start: 05-03-2023 End: 14-98-7634oyyh 1 tablet by mouth once dailyAspirin 81 mg Tablet,Delayed Release (Dr/Ec) Active 81 MG PO Daily 30 30 0 May 07, 2023 12:00am Complies with drug therapyatorvastatin 40 mg oral tablet (20 sources)HMG-CoA Reductase InhibitorStart: 91-62-0425fdlyzbdfoxew 40 mg Tab Refills(s) 0 Start Date: 04/25/25 Status: Ordered Medication Dispense Status: Completed Total Allowed Fills: 1 Fills Dispensed: 0Start: 05-03-2023 End: 14-52-3750urfv 1 tablet by mouth once daily at bedtimeAtorvastatin 80 mg tablet Discontinued 80 MG PO Daily at bedtime 90 90 1 October 28, 2023 12:00am February 28, 2024 8:12am End: 63-95-8961wsfldeidined (Lipitor) 80 MG tablet Take 40 mg by mouth Daily 05/02/2025 Discontinued (Reorder)Blood Sugar Diagnostic (20 sources)Start: 92-56-0049Ueqkv Sugar Diagnostic Active STRIP 120 September 05, 2023 12:00am Fingerstick blood sugar ACHSStart: 67-64-2952Bhpxz Sugar Diagnostic Active STRIP 120 September 05, 2023 1:00am Fingerstick blood sugar ACHSBlood-Glucose Sensor (DEXCOM G7 SENSOR) delfin (8 sources)Start: 85-80-1315Rvkkx-Glucose Sensor (DEXCOM G7 SENSOR) delfin Indications: 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 3 each 12/25/2024 Activecalcium carbonate 1250 mg oral tablet (1 source)take 1 tablet by mouth three times daily at mealtimecalcium carbonate (Oscal) 500 mg calcium (1,250 mg) tablet Take 1 tablet (1,250 mg) by mouth 3 times a day with meals. 0 ActiveCentrum Silver - (4 sources)Centrum Silver - as directed Orally Activecephalexin 500 mg oral capsule (20 sources)Cephalosporin AntibacterialStart: 05-17-2025 End: 30-12-8340tuip 1 capsule by mouth every twelve hoursKeflex 500 mg Cap 500 mg = 1 cap(s), Oral, q12hr, X 5 day(s), # 10 cap(s), Refills(s) 0, Pharmacy: [facility]/pharmacy #[id number], 177, cm, 05/17/25 10:58:00 EST, Height/Length Dosing, 61.7, kg, 05/17/25 10:58:00 EST, Weight Dosing Start Date: 05/17/25 Stop Date: 05/22/25 Status: Ordered Medication Dispense Status: Completed Quantity: 10.0 Unit: cap(s) Total Allowed Fills: 1 Fills Dispensed: 0Start: 40-24-8577knlq 1 capsule by mouth once dailyKeflex 500 mg Cap 500 mg = 1 cap(s), Oral, Daily, Take 1 cap day prior to procedure and 1 cap day of procedure, # 2 cap(s), Refills(s) 0, Pharmacy: [facility]/pharmacy #[id number], 177, cm, 04/25/25 14:48:00 EDT,Height/Length Dosing, 61.5, kg, 04/25/25 14:48:00 EDT, Weight Dosing Start Date: 04/26/25 Status: Ordered Medication Dispense Status: Completed Quantity: 2.0 Unit: cap(s) Total Allowed Fills: 1 FillsDispensed: 0Start: 06-21-2024 End: 67-92-0164lnuh 1 capsule by mouth three times dailyCephalexin 500 mg capsule Discontinued 500 MG PO Three times daily 21 June 21, 2024 11:28am July 16, 2024 8:10pmStart: 06-18-2024 End: 25-21-2384tryr 1 capsule by mouth twice dailyCephalexin 500 mg capsule Discontinued 500 MG PO Twice daily 14 7 0 June 18, 2024 1:00am June 21, 2024 11:28amcetirizine hydrochloride 10 mg oral tablet (20 sources)Histamine-1 Receptor Antagonist End: 43-61-0227ihvo 1 tablet by mouth once dailycetirizine (ZYRTEC) 10 mg tablet Take 10 mg by mouth once daily. Activecholecalciferol 0.05 mg oral tablet (20 sources)Vitamin DStart: 10-26-2023 End: 44-03-6526wzkh 1 tablet by mouth once dailycholecalciferol (Vitamin D-3) 50 MCG (2000 UT) tablet Take 2,000 Units by mouth Daily 10/26/2023 ActiveStart: 38-37-2206zeoq 100 ug by mouth once dailyCholecalciferol (Vitamin D3) 125 mcg/0.5 mL (5K unit/0.5mL) drops Active 100 MCG PO Daily October 26, 2023 12:00am Complies with drug therapyStart: 61-11-2046mwwd 100 ug by mouth once dailyCholecalciferol (Vitamin D3) Active 100 MCG PO Daily October 25, 2023 11:00pmStart: 41-43-4702jzav 100 ug by mouth once dailyCholecalciferol (Vitamin D3) Active 100 MCG PO Daily October 26, 2023 12:00amStart: 08-31-2023 End: 47-66-3188bvgh 1 tablet by mouth once dailyCholecalciferol (Vitamin D3) (Vitamin D3) 50 mcg (2,000 unit) tablet Discontinued 50 MCG PO Daily August 31, 2023 1:00am October 28, 2023 2:44pm End: 28-28-9246scwv 1 capsule by mouth in the morningcholecalciferol (Vitamin D- 3) 25 MCG (1000 UT) capsule Take 25 mcg by mouth in the morning. 07/20/2024 Discontinued (Therapy completed)Cholecalciferol (Vitamin D3) 125 mcg/0.5 mL (5K unit/0.5mL) drops (7 sources)Start: 65-33-6620kukt 100 ug by mouth once dailyCholecalciferol (Vitamin D3) 125 mcg/0.5 mL (5K unit/0.5mL) drops Active 100 MCG PO Daily October 26, 2023 12:00amStart: 17-23-3878ropp 100 ug by mouth once daily Cholecalciferol (Vitamin D3) 125 mcg/0.5 mL (5K unit/0.5mL) drops Active 100 MCG PO Daily October 25, 2023 11:00pmCreon 6000 UNIT (4 sources)Creon 6000 UNIT as directed Orally Activedocusate sodium 50 mg / sennosides, senior care 8.6 mg oral tablet (2 sources)take 1 tablet by mouth once dailysenna-docusate sodium (Senokot-S) 8.6-50 MG tablet Take 1 tablet by mouth Daily Activedoxycycline hyclate 100 mg oral capsule (2 sources)Tetracycline-class DrugStart: 08-30-2024 End: 17-51-0148kyrtciyinhp (Vibramycin) 100 MG capsule Indications: Lower respiratory infection Take 1 capsule (100 mg) by mouth in the morning and 1 capsule (100 mg) before bedtime. Do all this for 5 days. Take with at least 8 ounces (large glass) of water, do not lie down for 30 minutes after. 10 capsule 08/30/2024 09/04/2024 Activefolic acid/multivit-min/lutein (CENTRUM SILVER ORAL) (20 sources)folic acid/multivit-min/lutein (CENTRUM SILVER ORAL) Take by mouth once daily. Active0.2 ml glucagon 5 mg/ml auto-injector (20 sources)Antihypoglycemic AgentStart: 96-30-4336kqdzflir (GVOKE HYPOPEN 2- PACK) 1 mg/0.2 mL auto-injector Inject 1 mg subcutaneously as needed. 0.4mL 3 07/06/2024 ActiveStart: 32-52-6146ynjeuywa (rDNA) injection 1 mginject 1 mg by subcutaneous injection onceGvoke HypoPen 1-Pack 1 MG/0.2ML injection Inject 1 mg under the skin 1 (one) time if needed Ovjopb113 ml glucose 50 mg/ml injection (3 sources)Start: 37-32-3183ooirdwuk bolus 10% 125 mLStart: 01-02-2022 End: 67-30-5781ozkmwbns 5 % solution1 ml hydrALAZINE hydrochloride 20 mg/ml injection (1 source)Arteriolar VasodilatorStart: 31-73-7400rnzlJOOKEKL (APRESOLINE) injection 10 mg24 hr hydroCHLOROthiazide 12.5 mg / metoprolol succinate 25 mg extended release oral tablet (2 sources)Thiazide Diuretic, beta-Adrenergic BlockerStart: 04-25-2025 hydrochlorothiazide-metoprolol 12.5 mg-25 mg oral tablet, extended release Refill(s) 0 Start Date: 04/25/25 Status: Ordered Medication Dispense Status: Completed Total Allowed Fills: 1 Fills Dispensed: 0Insulin Aspart U-100 (Novolog Flexpen U-100 Insulin) 100 unit/mL (3 mL) Insulin Pen (20 sources)Start: 87-94-6161Xyicqkc Aspart U-100 (Novolog Flexpen U-100 Insulin) 100 unit/mL (3 mL) Insulin Pen Active 0 UNIT SUBCUT 3X/Day with meals and bedtime 0 September 03, 2023 1:00am Please contact the information source for Protocol details.Start: 09-03-2023 End: 67-81-2148Wdjgpdv Aspart U-100 (Novolog Flexpen U-100 Insulin) 100 unit/mL (3 mL) Insulin Pen Discontinued 0 UNIT SUBCUT 3x/Day with meals 0 September 03, 2023 1:00am October 28, 2023 2:44pm On Hold: medication in twice Please contact the information source for Protocol details.Start: 68-52-0484Yzcpryu Aspart U- 100 (Novolog Flexpen U-100 Insulin) 100 unit/mL (3 mL) Insulin Pen Active 0 UNIT SUBCUT 3X/Day with meals and bedtime 0 September 03, 2023 12:00am Please contact the information source for Protocol details.Start: 09-03-2023 End: 51-47-7455Isvqqag Aspart U-100 (Novolog Flexpen U-100 Insulin) 100 unit/mL (3 mL) Insulin Pen Discontinued 0 UNIT SUBCUT 3x/Day with meals 0 September 03, 2023 12:00am October 28, 2023 1:44pm On Hold: medication in twice Please contact the information source for Protocol details.Start: 16-17-3047Dpfrhmu Aspart U- 100 (Novolog Flexpen U-100 Insulin) 100 unit/mL (3 mL) Insulin Pen Active 0 UNIT SUBCUT 3X/Day with meals and bedtime 0 September 03, 2023 12:00amStart: 09-03-2023 End: 02-18-7619Kjcgtkp Aspart U-100 (Novolog Flexpen U-100 Insulin) 100 unit/mL (3 mL) Insulin Pen Discontinued 0 UNIT SUBCUT 3x/Day with meals 0 September 03, 2023 12:00am October 28, 2023 1:44pmStart: 09-03-2023 End: 05-80-8626Vixfytu Aspart U-100 (Novolog Flexpen U-100 Insulin) 100 unit/mL (3 mL) Insulin Pen Discontinued 0 UNIT SUBCUT 3x/Day with meals 0 September 03, 2023 1:00am October 28, 2023 2:44pmStart: 09-82-6049Lxfocii Aspart U-100 (Novolog Flexpen U-100 Insulin) 100 unit/mL (3 mL) Insulin Pen Active 0 UNIT MUNOZ BCUT 3x/Day with meals 0 September 03, 2023 1:00amStart: 55-44-0383Qjaixmd Aspart U-100 (Novolog Flexpen U-100 Insulin) 100 unit/mL (3 mL) Insulin Pen Active 0 UNIT SUBCUT 3X/Day with meals and bedtime 0 September 03, 2023 1:00am Start: 05-07-2023 End: 14-44-7837Qntauem Aspart U-100 (Novolog Flexpen U-100 Insulin) 100 unit/mL (3 mL) Insulin Pen Discontinued 0 UNITS SUBCUT 3x/Day with meals 0 May 07, 2023 12:00am September 05, 2023 3:28pm Please contact the information source for Protocol details.Start: 05-07-2023 End: 57-48-2809Oldzqoo Aspart U-100 (Novolog Flexpen U-100 Insulin) 100 unit/mL (3 mL) Insulin Pen Discontinued 0 UNITS SUBCUT 3x/Day with meals 0 May 06, 2023 11:00pm September 05, 2023 2:28pm Please contact the information source for Protocol details.Start: 05-07-2023 End: 91-52-1834qncwsm 1 dose by subcutaneous injection at bedtimeInsulin Aspart U-100 (Novolog Flexpen U-100 Insulin) 100 unit/mL (3 mL) Insulin Pen Discontinued 1 sliding scale dose SUBCUT Before meals and at bedtime May 06, 2023 11:00pm September 05, 2023 2:28pmStart: 05-07-2023 End: 82-99-9860Rotygpl Aspart U-100 (Novolog Flexpen U-100 Insulin) 100 unit/mL (3 mL) Insulin Pen Discontinued 0 UNITS SUBCUT 3x/Day with meals May 06, 2023 11:00pm September 05, 2023 2:28pmStart: 05-07-2023 End: 61-21-2499mxeynf 1 dose by subcutaneous injection at bedtimeInsulin Aspart U-100 (Novolog Flexpen U-100 Insulin) 100 unit/mL (3 mL) Insulin Pen Discontinued 1 sliding scale dose SUBCUT Before meals and at bedtime May 07, 2023 12:00am September 05, 2023 3:28pmStart: 05-07-2023 End: 75-44-3002Snmoatd Aspart U-100 (Novolog Flexpen U-100 Insulin) 100 unit/mL (3 mL) Insulin Pen Discontinued 0 UNITS SUBCUT 3x/Day with meals May 07, 2023 12:00am September 05, 2023 3:28pmStart: 67-14-7986lcwazs 1 dose by subcutaneous injection at bedtimeInsulin Aspart U-100 (Novolog Flexpen U-100 Insulin) 100 unit/mL (3 mL) Insulin Pen Active 1 sliding scale dose SUBCUT Before meals and at bedtime May 06, 2023 11:00pmStart: 05-07-2023 Insulin Aspart U-100 (Novolog Flexpen U-100 Insulin) 100 unit/mL (3 mL) Insulin Pen Active 0 UNITS SUBCUT 3x/Day with meals May 06, 2023 11:00pmStart: 07-58-3514kaqhfm 1 dose by subcutaneous injection at bedtimeInsulin Aspart U-100 (Novolog Flexpen U-100 Insulin) 100 unit/mL (3 mL) Insulin Pen Active 1 sliding scale dose SUBCUT Before meals and at bedtime May 07, 2023 12:00am Start: 07-13-7707Vohxahb Aspart U-100 (Novolog Flexpen U-100 Insulin) 100 unit/mL (3 mL) Insulin Pen Active 0 UNITS SUBCUT 3x/Day with meals May 07, 2023 12:00amStart: 05-03-2023 End: 66-49-9797Nebwqyp Aspart U-100 (Novolog Flexpen U-100 Insulin) 100 unit/mL (3 mL) Insulin Pen Discontinued 0 UNITS SUBCUT 3x/Day with meals May 03, 2023 12:00am May 03, 2023 5:09pm Please contactthe information source for Protocol details.Start: 05-03-2023 End: 96-90-7532Hdsyfkv Aspart U-100 (Novolog Flexpen U-100 Insulin) 100 unit/mL (3 mL) Insulin Pen Discontinued 0 UNITS SUBCUT 3x/Day with meals 0 May 02, 2023 11:00pm May 03, 2023 4:09pm Please contactthe information source for Protocol details.Start: 05-03-2023 End: 85-82-6543Jaqcdif Aspart U-100 (Novolog Flexpen U-100 Insulin) 100 unit/mL (3 mL) Insulin Pen Discontinued 0 UNITS SUBCUT 3X/Day with meals and bedtime 0 May 02, 2023 11:00pm May 03, 2023 4:10pmStart: 05-03-2023 End: 10-36-1985Ylfwnfp Aspart U-100 (Novolog Flexpen U-100 Insulin) 100 unit/mL (3 mL) Insulin Pen Discontinued 0 UNITS SUBCUT 3x/Day with meals 0 May 02, 2023 11:00pm May 03, 2023 4:09pmStart: 05-03-2023 End: 79-07-8810Dzkexks Aspart U-100 (Novolog Flexpen U-100 Insulin) 100 unit/mL (3 mL) Insulin Pen Discontinued 0 UNITS SUBCUT 3X/Day with meals and bedtime 0 May 03, 2023 12:00am May 03, 2023 5:10pmStart: 05-03-2023 End: 76-65-0782Qonnaiq Aspart U-100 (Novolog Flexpen U-100 Insulin) 100 unit/mL (3 mL) Insulin Pen Discontinued 0 UNITS SUBCUT 3x/Day with meals 0 May 03, 2023 12:00am May 03, 2023 5:09pmStart: 22-16-0369Minhacn Aspart U-100 (Novolog Flexpen U-100 Insulin) 100 unit/mL (3 mL) Insulin Pen Active 0 UNITS S UBCUT 3X/Day with meals and bedtime 0 May 03, 2023 12:00amStart: 49-92-9638Lumpahx Aspart U-100 (Novolog Flexpen U-100 Insulin) 100 unit/mL (3 mL) Insulin Pen Active 0 UNITS SUBCUT 3x/Day with meals 0 May 03, 2023 12:00aminsulin aspart, human 100 unt/ml injectable solution (20 sources)Insulin AnalogStart: 31-98-5924Uixdrkx Aspart 100 UNIT/ML solution 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 Inject before meals. Use a directed by processing spec. 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, with long-term current use of insulin (HCC) ADMINISTER PER PUMP (MAX DAILY 75 UNITS) 30 mL 5 10/04/2024 ActiveStart: 09-22-2024 End: 37-17-6346rluieny aspart U-100 (NOVOLOG U-100 INSULIN ASPART) 100 unit/mL Indications: 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 Complies with drug therapyStart: 08-31-2023 End: 05-07-6916Goklorb Aspart U-100 (Novolog U-100 Insulin Aspart) 100 unit/mL solution Discontinued 50 UNIT CNTSUBQINF Daily August 31, 2023 1:00am September 05, 2023 3:28pm per insulin pumpStart: 08-18-2023 End: 04-97-5066JhrjJFP FLEXPEN 100 UNIT/ML pen 08/18/2023 07/20/2024 Discontinued (Therapy completed)Start: 05-07-2023 End: 32-92-6015Qkyfnfb Aspart U-100 (Novolog Flexpen U-100 Insulin) 100 unit/mL (3 mL) Insulin Pen Discontinued 0 UNIT SUBCUT 3x/Day with meals Protocol: *Carb coverage 1:10*Give 1 unit of rapid-acting insulin for every 10 gm of carbohydrates eaten at meals 0 0 September 03, 2023 1:00am October 28, 2023 2:44pm On Hold: medication in twice Please contact the information source for Protocol details.Start: 05-03-2023 End: 47-44-3852Kcaovsk Aspart U-100 (Novolog Flexpen U-100 Insulin) 100 [...] Please contact the information source for Protocol details.Start: 04-28-2023 End: 77-96-2736Xubmcai Aspart U-100 (Novolog Flexpen U-100 Insulin) 100 unit/mL (3 mL) Insulin Pen Discontinued 0 UNITS SUBCUT 3x/Day with meals Protocol: *CARB COVERAGE 1:10*GIVE 1 UNIT OF ASPART FOR EVERY 10 GM CHO EATEN AT MEALS 0 0 May 03, 2023 12:00am May 03, 2023 5:09pm Please contact the [employer] [facility] source for Protocol details.Start: 04-28-2023 End: 03-07-7251zshucr 5 [IU] by subcutaneous injection after breakfastInsulin Aspart U-100 (Novolog Flexpen U-100 Insulin) 100 unit/mL (3 mL) insulin pen Discontinued 5 UNIT SUBCUT After breakfast and lunch April 28, 2023 12:00am May 03, 2023 5:10pminject 100 [IU] by subcutaneous injection three times daily before mealtimeinsulin aspart (NovoLOG U-100 Insulin aspart) 100 unit/mL injection Inject 100 Units under the skin3 times a day before meals. Take as directed per insulin instructions. 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 For use in case of pump failure 15 mL 3 10/04/2024 ActiveStart: 44-91-2010wyduaq 5 [IU] by subcutaneous injection once daily at bedtimeInsulin Glargine (Lantus Solostar U-100 Insulin) 100 unit/mL (3 mL) Insulin Pen Active 5 UNIT SUBCUT Daily at bedtime 0.5 10 0 July 17, 2024 1:00am Complies with drug therapyStart: 07-06-2024 End: 74-05-2576ixhkssb glargine (LANTUS) 100 unit/mL injection In case of pump failure 07/06/2024 10/04/2024 DiscontinuedStart: 06-02-2024 End: 55-27-0521gaqrzw 12 [IU] by subcutaneous injection at bedtimeinsulin glargine (Lantus) 100 UNIT/ML injection Indications: 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) Inject 12 Units under the skin at bedtime 10 mL 06/02/2024 07/20/2024 Discontinued (Therapy completed)Start: 05-30-2024 End: 14-02-9628qlgjmu 16 [IU] by subcutaneous injection at bedtimeinsulin glargine (Lantus) 100 UNIT/ML injection Indications: 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) Inject 16 Units under the skin at bedtime 10 mL 05/30/2024 08/28/2024 ActiveStart: 09-03-2023 End: 86-45-1416Mdqghrh Glargine (Lantus Solostar U-100 Insulin) 100 unit/mL (3 mL) Insulin Pen Discontinued 24 UNIT SUBCUT Daily 0 0 September 03, 2023 1:00am October 28, 2023 2:43pm On Hold: medication in twiceStart: 08-31-2023 End: 72-03-9694Odidawm Glargine (Lantus Solostar U-100 Insulin) 100 unit/mL (3 mL) Insulin Pen Discontinued 16 UNIT SUBCUT Bedtime August 31, 2023 1:00am July 16, 2024 8:12pmStart: 94-62-4487grnehw 8 [IU] by subcutaneous injection at bedtimeInsulin Glargine (Lantus Solostar U-100 Insulin) 100 unit/mL (3 mL) Insulin Pen Active 8 UNIT SUBCUT Bedtime August 31, 2023 1:00amStart: 08-30-2023 End: 57-37-4848gkmnha 8 [IU] by subcutaneous injection at bedtimeinsulin glargine (Lantus) 100 UNIT/ML injection Indications: 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 (CMS/HCC) Inject 8 Units under the skin at bedtime 08/30/2023 05/30/2024 Discontinued (Reorder)Start: 08-20-2023 End: 55-71-3574Srjzob SoloStar 100 UNIT/ML pen Inject 18 Units under the skin at bedtime 08/20/2023 07/20/2024 Discontinued (Therapy completed)Start: 05-03-2023 End: 99-43-1996yghzot 7 [IU] by subcutaneous injection twice dailyInsulin Glargine (Lantus Solostar U-100 Insulin) 100 unit/mL (3 mL) Insulin Pen Discontinued 7 UNITS SUBCUT Twice daily 4.2 30 0 May 07, 2023 12:00am August 31, 2023 4:55pmStart: 04-28-2023 End: 57-20-1169Uisjpsn Glargine (Lantus Solostar U-100 Insulin) 100 unit/mL (3 mL) insulin pen Discontinued 18 UNIT SUBCUT Bedtime April 28, 2023 12:00am May 03, 2023 5:10pm End: 54-31-9947wmjxlq 100 [IU] by subcutaneous injection at bedtimeinsulin glargine (Basaglar KwikPen) 100 UNIT/ML pen Inject under the skin at bedtime 05/02/2025 Discontinued (Reorder)inject 24 [IU] by subcutaneous injection once daily at bedtimeinsulin glargine (Lantus U-100 Insulin) 100 unit/mL injection Inject 24 Units under the skin once daily at bedtime. Take as directed per insulin instructions. 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 10 Each 07/06/2024 ActiveLactobac no.41/Bifidobact no.7 (PROBIOTIC-10 ORAL) (20 sources)Lactobac no.41/Bifidobact no.7 (PROBIOTIC-10 ORAL) Take by mouth once daily. ActiveLactobacillus Combination No.4 (Probiotic) 3 billion cell capsule (6 sources)Start: 63-96-9866rgwb 3 capsules by mouth once dailyLactobacillus Combination No.4 (Probiotic) 3 billion cell capsule Active 3000 MMU CELLS PO Daily August 31, 2024 1:00am administer with a meal Complies with drug therapyStart: 53-18-9607zkng 3 capsules by mouth once dailyStart: 76-46-1917vfza 3 capsules by mouth once dailyLactobacillus Combination No.4 (Probiotic) 3 billion cell capsule Active 3000 MMU CELLS PO Daily August 31, 2024 1:00am administer with a mealStart: 23-47-6744ctuc 3 capsules by mouth once daily Lactobacillus Combination No.4 (Probiotic) 3 billion cell capsule Active 3000 MMU CELLS PO Daily August 31, 2024 12:00am administer with a meal lipase/protease/amylase (CREON ORAL) (2 sources)take 78701 mg by mouth three times dailylipase/protease/amylase (CREON ORAL) Take 24,000 mg by mouth 3 times a day. 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 0 Activetake 1 capsule by mouth once dailyLutein 6 MG 1 capsule with a meal Orally Once a day Activelutein 25 mg / zeaxanthin 5 mg oral capsule (20 sources)lutein-zeaxanthin 25-5 mg cap Take by mouth once daily. Active melatonin 1 mg oral tablet (1 source)Start: 98-44-4436asvshqjpb tablet 3 mg24 hr metoprolol succinate 50 mg extended release oral tablet (20 sources)beta-Adrenergic BlockerStart: 05-02-2025 End: 96-78-7156bksw 0.5 tablet by mouth every twenty-four hours in the morning metoprolol succinate XL (Toprol-XL) 50 MG 24 hr tablet Indications: Hypertensive heart disease withchronic systolic congestive heart failure (HCC) Take 0.5 tablets (25 mg) by mouth in the morning and 0.5 tablets (25 mg) before bedtime. Do not crush or chew. 05/02/2025 ActiveStart: 71-57-1671avfk 2 tablets by mouth once daily at bedtimeMetoprolol Succinate 25 mg tablet extended release 24 hr Active 12.5 MG PO Daily at bedtime 45 90 0Sept2024 12:00am Complies with drug therapyStart: 07-16-2024 End: 49-63-6661nobp 2 tablets by mouth twice dailyMetoprolol Succinate 25 mg tablet extended release 24 hr Discontinued 12.5 MG PO Twice daily 90 90 2 December 05, 2024 9:38am March 27, 2025 10:50amStart: 16-04-6038bnnv 0.5 tablet by mouth every twelve hoursmetoprolol succinate ER (TOPROL XL) 50 mg 24 hr tablet Take 0.5 tablets by mouth every 12 hours. 06/21/2024 ActiveStart: 05-25-2024 End: 94-24-6288cqpr 1 tablet by mouth twice dailyMetoprolol Succinate 50 mg Tablet Extended Release 24 Hr Discontinued 50 MG PO Twice daily 60 30 3 May 25, 2024 1:00am July 16, 2024 8:14pmStart: 05-16-2024 End: 58-85-7837yhxq 2 tablets by mouth twice dailyMetoprolol Succinate 25 mg tablet extended release 24 hr Discontinued 12.5 MG PO Twice daily May 16, 2024 1:00am May 25, 2024 10:49amStart: 29-04-3690llua 12.5 mg by mouth twice dailyMetoprolol Succinate Active 12.5 MG PO Twice daily May 16, 2024 12:00amStart: 04-24-2024 End: 67-04-4230suin 0.5 tablet by mouth every twenty-four hours in the morning metoprolol succinate XL (Toprol-XL) 25 MG 24 hr tablet Indications: Coronary arteriosclerosis (CMS/HCC) Take 0.5 tablets (12.5 mg) by mouth in the morning and 0.5 tablets (12.5 mg) before bedtime. 180 tablet 3 04/24/2024 05/30/2024 Discontinued (Therapy completed)Start: 02-15-2024 End: 71-12-6113mnke 2 tablets by mouth once dailyMetoprolol Succinate 25 mg tablet extended release 24 hr Discontinued 12.5 MG PO Daily 45 90 1 February 15, 2024 12:00am May 16, 2024 1:54pmStart: 02-15-2024 End: 66-51-2298yadm 12.5 mg by mouth once dailyMetoprolol Succinate Discontinued 12.5 MG PO Daily 45 90 February 14, 2024 11:00pm May 16, 2024 12:54pm Start: 02-05-2024 End: 43-17-1257rltu 2 tablets by mouth twice dailyMetoprolol Succinate (Toprol Xl) 25 mg tablet extended release 24 hr Discontinued 12.5 MG PO Twice daily February 05, 2024 12:00am February 15, 2024 10:58am End: 04-21-3383sqcy 1 tablet by mouth every twenty-four hours in the morning metoprolol succinate XL (Toprol-XL) 25 MG 24 hr tablet Take 12.5 mg by mouth in the morning and 12.5 mg before bedtime. Do not crush or chew.. 01/02/2025 Discontinued (Dose adjustment)Multi Vitamins oral tablet (2 sources)Start: 59-46-0054tuuv 1 tablet by mouth once dailyMulti Vitamins oral tablet Oral, Daily, Refill(s) 0 Start Date: 04/25/25 Status: Ordered Medication Dispense Status: Completed Total Allowed Fills: 1 Fills Dispensed: 0Start: 79-85-0603aitz 1 tablet by mouth once dailyMulti Vitamins oral tablet Oral, Daily, Refill(s) 0 Start Date: 04/25/25 Status: Ordered Repeat number: 1Multiple Vitamins-Minerals (LUTEIN-ZEAXANTHIN PO) (1 source)take 1 tablet by mouth once dailyMultiple Vitamins-Minerals (LUTEIN- ZEAXANTHIN PO) Take 1 tablet by mouth daily 0 ActiveMultivit With Min-Folic Acid (Centrum Adults) 12 mcg tablet,chewable (20 sources)Start: 55-30-8813ryrn 1 tablet by mouth once dailyMultivit With Min- Folic Acid (Centrum Adults) 12 mcg tablet,chewable Active 1 TAB PO Daily October 26, 2023 12:00am Complies with drug therapyStart: 13-79-7782cuqf 1 tablet by mouth once dailyStart: 84-05-7028jnvn 1 tablet by mouth once dailyMultivit With Min-Folic Acid (Centrum Adults) 12 mcg tablet,chewable Active 1 TAB PO Daily October 25, 2023 11:00pmStart: 48-07-1818aefw 1 tablet by mouth once daily Multivit With Min-Folic Acid (Centrum Adults) 12 mcg tablet,chewable Active 1 TAB PO Daily October 26, 2023 12:00ammultivit-min/ferrous fumarate (MULTI VITAMIN ORAL) (1 source)take 1 tablet by mouth once dailymultivit-min/ferrous fumarate (MULTI VITAMIN ORAL) Take 1 tablet by mouth once daily. 0 Activeondansetron (ZOFRAN- ODT) disintegrating tablet 4 mg (1 source)Start: 60-54-2542kalkejyhrbm (ZOFRAN-ODT) disintegrating tablet 4 mg pantoprazole (PROTONIX) 40 mg in sodium chloride (PF) 10 mL injection (1 source)Start: 77-33-678824 mg, IntraVENous, EVERY 12 HOURS, First dose on Wed01/02/22 at 2300 Reconstitute with 10 mL 0.9 %sodium chloride and administer over at least 2 minutes.PARoxetine hydrochloride 40 mg oral tablet (20 sources)Serotonin Reuptake InhibitorStart: 08-11-2024 End: 45-10-8489pyyvzhuzdc 40 mg Tab Refills(s) 0 Start Date: 04/25/25 Status: Ordered Medication Dispense Status: Completed Total Allowed Fills: 1 Fills Dispensed: 0Start: 02-15-2024 End: 69-59-0268gjzg 1 tablet by mouth once daily in the morningPARoxetine (Paxil) 40 MG tablet Indications: Generalized anxiety disorder TAKE 1 TABLET BY MOUTH EVERY DAY IN THE MORNING 90 tablet 3 08/11/2024 ActiveStart: 04-28-2023 End: 33-59-5305hjzf 1 tablet by mouth once dailyParoxetine Hcl 30 mg Tablet Discontinued 30 MG PO Daily 30 30 0 May 07, 2023 12:00am February 15, 2024 10:09amStart: 11-79-0226vykt 30 mg by mouth once daily in the lejqbvg85 mg, Oral, EVERY MORNING, First dose on Wed01/05/22 at 0900, Until Discontinued Probiotic Product (PROBIOTIC-10 PO) (1 source)take 1 capsule by mouth once dailyProbiotic Product (PROBIOTIC-10 PO) Take 1 capsule by mouth daily 0 Czxfes0894 ml sodium chloride 9 mg/ml injection (4 sources)Start: .9 % sodium chloride infusionStart: 01-02-2022 IntraVENous, at 5-250 mL/hr, PRN, if patient receiving piggyback infusions and maintenance fluids are not ordered OR KVO fluids to protect IV site / prevent frequent line interruptions/ long duration, Starting on Wed01/02/22 at 2231 For piggyback infusion, administer at same rate as piggyback for atotal of 25 mL. Enter 25 mL into dose field and piggyback rate into rate field of order. If piggyback is infusing at a rate less than 100 mL/hr, enter 25 mL into dose field and 100 mL/hr into rate field of order. For KVO fluids, enter rate of 20 mL/hr or less into rate field of order.Start: 45-02-9988sjjj 1 dose intravenously twice daily5-40 mL, IntraVENous, EVERY 12 HOURS SCHEDULED (2 times per day), First dose on Wed01/02/22 at 2300, Until Discontinued For Line Patency: Peripheral IV = 5 mL; Midline or Central Line = 10 mL/lumen.&a mp;nbsp; If following IV push medication, administer flush at same rate as the IV push. Flush volume is determined by type of infusion therapy being given. For non-viscoussolutions use: Peripheral IV = 5 mL Midline or Central Line = 10 mL/lumen For viscous solutions (i.e. blood components, parenteral nutrition, contrast media, or after obtaining blood sample) use: Peripheral IV = 10 mL Midline or Central Line = 20 mL/lumenStart: 94-27-7056dila 5-40 mL intravenously once as needed5-40 mL, IntraVENous, PRN, Starting on Wed01/02/22 at [...] mL/lumen spironolactone 25 mg oral tablet (20 sources)Aldosterone AntagonistStart: 10-13-2024 End: 23-48-2368xmlw 1 tablet by mouth once dailyspironolactone (Aldactone) 25 MG tablet Indications: Chronic systolic CHF (congestive heart failure), NYHA class 2 (HCC) Take 1 tablet (25 mg) by mouth Daily 90 tablet 3 01/17/2025 Active Start: 08-31-2024 End: 15-58-8253Shkjuxrcgcrohd 25 mg tablet Discontinued 12.5 MG PO Daily 15 30 2 August 31, 2024 1:00am October 13, 2024 9:58amStart: 07-16-2024 End: 34-26-4202fqwl 1 tablet by mouth once dailySpironolactone 25 mg tablet Discontinued 25 MG PO Daily July 16, 2024 1:00am August 31, 2024 11:09am Start: 03-27-2024 End: 81-91-7446Kjnxxrwpeazflx 25 mg tablet Discontinued 12.5 MG PO Every morning May 16, 2024 1:00am June 16, 2024 7:21pmStart: 03-27-2024 End: 49-27-7796sieb 12.5 mg by mouth once daily in the morningSpironolactone Active 12.5 MG PO Every morning May 16, 2024 12:00amStart: 02-05-2024 End: 11-18-5083anlz 1 tablet by mouth once dailySpironolactone 25 mg Tablet Discontinued 25 MG PO Daily 90 90 0 February 08, 2024 12:00am March 27, 2024 11:44amtamsulosin hydrochloride 0.4 mg oral capsule (20 sources)alpha-Adrenergic BlockerStart: 96-48-4918asng 1 capsule by mouth once dailyTamsulosin (Flomax) 0.4 mg capsule Active 0.4 MG PO Daily May 09, 2025 12:00am Complies with drug therapyStart: 87-88-0323xrqb 1 capsule by mouth every twenty-four hours at bedtimetamsulosin (Flomax) 0.4 MG 24 hr capsule Take 1 capsule by mouth at bedtime 05/16/2024 ActiveStart: 04-28-2023 End: 10-35-7630kokj 1 capsule by mouth once dailyTamsulosin 0.4 mg Capsule Discontinued 0.4 MG PO Daily 30 30 0 May 07, 2023 12:00am May 16, 2024 1:54pmVitamin D (2 sources)Start: 09-71-0713lhqj 1 dose by mouth every weekVitamin D International_Unit, Oral, qWeek, Refills(s) 0 Start Date: 04/25/25 Status: Ordered Medication Dispense Status: Completed Total Allowed Fills: 1 Fills Dispensed: 0Start: 57-04-5271Iencjfb D International_Unit, Oral, qWeek, Refills(s) 0 Start Date: 04/25/25 Status: Ordered Repeatnumber: 1Vitamin D3 [id number] UNIT/GM (4 sources)Vitamin D3 [id number] UNIT/GM as directed Active Completed/Discontinued Medications MedicationDrug Class(es)DatesSig (Normalized)Sig (Original)acetaminophen 500 mg oral tablet (20 sources)Start: 05-03-2023 End: 10-86-0754frmk 1 tablet by mouth every six hoursAcetaminophen 500 mg Tablet Discontinued 500 MG PO Every 6 hours 90 0 May 07, 2023 12:00am August 31, 2023 3:53pmStart: 05-03-2023 End: 29-42-9391xvip 1-3 tablets by mouth every four hours as needed for pain Acetaminophen (Tylenol) 325 mg Tablet Discontinued 650 MG PO Q4H as needed for Pain Scale 1 - 3 or fever 0 0 May 03, 2023 12:00am May 03, 2023 5:10pmStart: 05-03-2023 End: 24-36-6662qeap 2 tablets by mouth every four hoursAcetaminophen (Tylenol) 325 mg Tablet Discontinued 650 MG PO Q4H 0 May 02, 2023 11:00pm May 03, 2023 4:10pmStart: 30-73-2565twaytwcrnnglk (TYLENOL) tablet 1,000 mg Acetaminophen Extra Strength 500 MG tablet Daily. Activeacetaminophen 325 mg / HYDROcodone bitartrate 5 mg oral tablet (20 sources)Opioid AgonistStart: 05-03-2023 End: 21-43-2728fyev 1 tablet by mouth every four hours as needed for pain Hydrocodone-Acetaminophen 5-325 mg Tablet Discontinued 1 TAB PO Q4H as needed for Pain 20 7 0 May 07, 2023 August 31, 2023 4:51pm Acute postoperative pain of hip Closed intertrochanteric fracture of right femur Other acute postprocedural pain Pain in unspecified hiptake 1-2 tablets by mouth every four to six hours as neededHYDROcodone-Acetaminophen 5-325 MG 1-2 tablet as needed Orally every 4-6 hrs for 7 days ROSEANN # [id number] Activetake 1 tablet by mouth every six hoursHYDROcodone-Acetaminophen 5-325 MG 1 tablet as needed Orally every 6 hrs Activealuminum hydroxide 40 mg/ml / magnesium hydroxide 40 mg/ml / simethicone 4 mg/ml oral suspension (20 sources)Start: 05-03-2023 End: 15-51-2376fsuf 1 mL by mouth every four hours as neededAlum-Mag Hydroxide- Simeth (Mag-Al Plus) 200-200-20 mg/5 mL Suspension Discontinued 30 ML PO Q4H as needed for Epigastric distress (Non-Card) 0 0 May 03, 2023 12:00am May 03, 2023 5:10pmamoxicillin 875 mg / clavulanate 125 mg oral tablet (2 sources)Penicillin-class AntibacterialStart: 04-17-2024 End: 07-73-6256pnug 1 tablet by mouth in the morningamoxicillin-clavulanate (Augmentin) 875-125 MG tablet Indications: Bronchitis Take 1 tablet (875 mg) by mouth in the morning and 1 tablet (875 mg) before bedtime. Do all this for 5 days. 14 tablet 04/17/2024 04/22/2024 Expiredascorbic acid 500 mg oral tablet (20 sources)Vitamin CStart: 05-03-2023 End: 97-93-0590qvnm 1 tablet by mouth once dailyAscorbic Acid (Vitamin C) (Vitamin C) 500 mg Tablet Discontinued 500 MG PO Daily 30 0 April 12:00am September 05, 2023 3:28pm End: 57-26-9211kpjl 1 tablet by mouth once dailyascorbic acid (Vitamin C) 100 mg tablet Take 1 tablet (100 mg) by mouth once daily. 0 08/16/2023 Discontinued (Therapy completed)bisacodyl 10 mg rectal suppository (20 sources)Stimulant LaxativeStart: 05-03-2023 End: 10-89-8715Piwlimfnl 10 mg Suppository Discontinued 10 MG IN Daily as needed for Constipation 0 0 May 03, 2023 12:00am May 03, 2023 5:10pmStart: 05-03-2023 End: 67-10-3513mldi 2 tablets by mouth once daily as needed for constipation Bisacodyl 5 mg Tablet,Delayed Release (Dr/Ec) Discontinued 10 MG PO Daily as needed for Constipation 0 0 May 03, 2023 12:00am May 03, 2023 5:10pm Start: 05-03-2023 End: 90-18-7257ixlp 10 mg by mouth once dailyBisacodyl Discontinued 10 MG PO Daily 0 May 02, 2023 11:00pm May 03, 2023 4:10pmStart: 01-02-2022 take 10 mg rectal route once daily as manrop10 mg, Rectal, DAILY PRN, Starting on Wed01/02/22 at 2231, Until Discontinued, Constipation First line therapy for constipationbismuth subsalicylate 17.5 mg/ml oral suspension (20 sources)BismuthStart: 09-05-2023 End: 27-79-6266yyjg 300 mg by mouth four times dailyBismuth Subsalicylate (Stomach Relief) 262 mg/15 mL Suspension Discontinued 300 MG PO Four times daily 824.429 12 0 September 054 1:00am October 21, 2023 8:40amcalcium carbonate 1250 mg / cholecalciferol 200 unt oral tablet (6 sources)Vitamin DStart: 05-03-2023 End: 16-70-7152icdt 1 tablet by mouth once at mealtimeCalcium Carbonate-Vitamin D3 (Oyster Shell Calcium-Vit D3) 500 mg-5 mcg (200 unit) Tablet Discontinued 1 TAB PO 3x/Day with meals May 07, 2023 12:00am August 31, 2023 4:56pmCalcium Carbonate-Vitamin D3 (Oyster Shell Calcium-Vit D3) 500 mg-5 mcg (200 unit) Tablet (20 sources)Start: 05-07-2023 End: 25-19-2252xsfl 1 tablet by mouth once at mealtimeCalcium Carbonate-Vitamin D3 (Oyster Shell Calcium-Vit D3) 500 mg-5 mcg (200 unit) Tablet Discontinued 1 TAB PO 3x/Day with meals May 06, 2023 11:00pm August 31, 2023 3:56pmStart: 05-07-2023 End: 72-09-5248aede 1 tablet by mouth once at mealtimeCalcium Carbonate-Vitamin D3 (Oyster Shell Calcium-Vit D3) 500 mg-5 mcg (200 unit) Tablet Discontinued 1 TAB PO 3x/Day with meals May 07, 2023 12:00am August 31, 2023 4:56pmStart: 04-10-9710onch 1 tablet by mouth once at mealtimeCalcium Carbonate- Vitamin D3 (Oyster Shell Calcium-Vit D3) 500 mg-5 mcg (200 unit) Tablet Active 1 TAB PO 3x/Day with meals May 06, 2023 11:00pmStart: 01-73-7677bggs 1 tablet by mouth once at mealtimeCalcium Carbonate-Vitamin D3 (Oyster Shell Calcium-Vit D3) 500 mg-5 mcg (200 unit) Tablet Active 1 TAB PO 3x/Day with meals May 07, 2023 12:00amStart: 05-03-2023 End: 41-81-9448merp 1 tablet by mouth once at mealtimeCalcium Carbonate-Vitamin D3 (Oyster Shell Calcium-Vit D3) 500 mg-5 mcg (200 unit) Tablet Discontinued 1 TAB PO 3x/Day with meals 0 May 02, 2023 11:00pm May 07, 2023 1:27pm Start: 05-03-2023 End: 10-02-6027ztxb 1 tablet by mouth once at mealtimeCalcium Carbonate-Vitamin D3 (Oyster Shell Calcium-Vit D3) 500 mg-5 mcg (200 unit) Tablet Discontinued 1 TAB PO 3x/Day with meals 0 May 03, 2023 12:00am May 07, 2023 2:27pm Start: 43-14-7857wuvi 1 tablet by mouth once at mealtimeCalcium Carbonate- Vitamin D3 (Oyster Shell Calcium-Vit D3) 500 mg-5 mcg (200 unit) Tablet Active 1 TAB PO 3x/Day with meals 0 May 03, 2023 12:00amcalcium chloride 0.0014 meq/ml / potassium chloride 0.004 meq/ml / sodium chloride 0.103 meq/ml / sodium lactate 0.028 meq/ml injectable solution (1 source)Start: 01-02-2022 End: 89-52-0014AndbmJJLgaw, at 125 mL/hr, CONTINUOUS, Starting on Wed01/02/22 at 2300clopidogrel 75 mg oral tablet (20 sources)P2Y12 Platelet InhibitorStart: 08-16-2023 End: 79-69-5356vstl 1 tablet by mouth once dailyClopidogrel 75 mg tablet Discontinued 75 MG PO Daily August 31, 2023 1:00am February 08, 2024 1:25pm collagenase Clostridium histolyticum (4 sources)Start: 08-78-8186Ratlssx Apr, 0.01 mgcyclobenzaprine hydrochloride 5 mg oral tablet (20 sources)Muscle RelaxantStart: 05-07-2023 End: 91-23-1358ltbs 1 tablet by mouth every eight hours as needed for muscle spasmsCyclobenzaprine 5 mg Tablet Discontinued 5 MG PO Q8H as needed for Muscle Spasm 30 30 0 May 07, 2023 12:00am August 31, 2023 4:51pmtake 1 tablet by mouth three times daily as needed for muscle spasmscyclobenzaprine (Flexeril) 5 mg tablet Take 1 tablet (5 mg) by mouth 3 times a day as needed for muscle spasms. 0 Activedapagliflozin 10 mg oral tablet (20 sources)Sodium-Glucose Cotransporter 2 InhibitorStart: 08-30-2024 End: 85-32-4229dqng 1 tablet by mouth once dailyDapagliflozin Propanediol (Farxiga) 10 mg tablet Discontinued 10 MG PO Daily August 31, 2024 1:00am April 06, 2025 9:44amempagliflozin 10 mg oral tablet (20 sources)Sodium-Glucose Cotransporter 2 InhibitorStart: 03-27-2024 End: 67-95-3291muvv 1 tablet by mouth once dailyEmpagliflozin (Jardiance) 10 mg tablet Discontinued 10 MG PO Daily 30 30 2 March 27, 2024 12:00am May 16, 2024 1:44pm0.4 ml enoxaparin sodium 100 mg/ml prefilled syringe (20 sources)Low Molecular Weight HeparinStart: 05-03-2023 End: 76-23-5947Promjovgyd (Lovenox) 40 mg/0.4 mL Syringe Discontinued 40 MG SUBCUT DAILY@1000 0 15 0 April 12:00am May 07, 2023 2:27pm Start: 54-03-2283dfonabzfce (LOVENOX) injection 40 mgferrous sulfate 324 mg delayed release oral tablet (20 sources)Start: 05-07-2023 End: 97-90-6936tnvh 1 tablet by mouth once dailyFerrous Sulfate 324 mg (65 mg iron) Tablet,Delayed Release (Dr/Ec) Discontinued 324 MG PO Daily 30 0 May 07, 2023 12:00am August 31, 2023 4:51pmtake 1 tablet by mouth once daily at mealtimeferrous sulfate, 325 mg ferrous sulfate, (iron) tablet Take 1 tablet (325 mg) by mouth once daily with a meal. 0 Kkpnre124 ml fluconazole 2 mg/ml injection (1 source)Azole AntifungalStart: 01-02-2022 End: 09-72-3716fiiznegdecm (DIFLUCAN) 400 mg IVPBfurosemide 20 mg oral tablet (20 sources)Loop DiureticStart: 08-09-2024 End: 57-69-6466qfip 1 tablet by mouth once daily in the morningFurosemide 20 mg tablet Discontinued 0 .ROUTE .COMPLEX 90 1 August 09, 2024 12:46pm August 31, 2024 11:10am TAKE 1 TABLET BY MOUTH EVERY DAY AT 8 AMStart: 07-17-2024 End: 94-04-3691vrlm 1 tablet by mouth once dailyFurosemide 20 mg Tablet Discontinued 20 MG PO Daily at 0800 30 1 July 17, 2024 1:00am August 09, 2024 12:47pmStart: 02-15-2024 End: 65-95-2310uesi 1 tablet by mouth once dailyFurosemide (Lasix) 20 mg tablet Discontinued 20 MG PO Daily February 15, 2024 12:00am February 15, 2024 10:58am Start: 08-31-2023 End: 01-27-3165Kgmjsgllhh Discontinued MG TABLET August 31, 2023 12:00am September 05, 2023 2:28pmStart: 08-16-2023 End: 60-54-8760eagk 1 tablet by mouth once daily as neededFurosemide 20 mg tablet Discontinued 20 MG PO Daily as needed for as instructed 0 90 0 September 03, 2023 11:53am October 21, 2023 8:40am End: 46-73-0355gltj 10 mg by mouth once dailyfurosemide (Lasix) 20 MG tablet Take 10 mg by mouth Daily 08/30/2024 Discontinued (Therapy completed)Insulin Aspart U-100 (Novolog Flexpen U-100 Insulin) 100 unit/mL (3 mL) insulin pen (20 sources)Start: 05-03-2023 End: 39-44-7011Jcysyib Aspart U-100 (Novolog Flexpen U-100 Insulin) 100 unit/mL (3 mL) insulin pen Discontinued 0 units SUBCUT Before meals and at bedtime May 03, 2023 5:09pm May 07, 2023 2:27pm Please contact the information source for Protocol details.Start: 05-03-2023 End: 35-44-4602Czcpjma Aspart U-100 (Novolog Flexpen U-100 Insulin) 100 unit/mL (3 mL) insulin pen Discontinued 0 units SUBCUT Before meals and at bedtime May 03, 2023 4:09pm May 07, 2023 1:27pm Please contact the information source for Protocol details.Start: 05-03-2023 End: 94-67-0118Fffwqsg Aspart U-100 (Novolog Flexpen U-100 Insulin) 100 unit/mL (3 mL) insulin pen Discontinued 0 units SUBCUT Before meals and at bedtime May 03, 2023 4:09pm May 07, 2023 1:27pmStart: 05-03-2023 End: 25-64-9543Dbivjwy Aspart U-100 (Novolog Flexpen U-100 Insulin) 100 unit/mL (3 mL) insulin pen Discontinued 0 units SUBCUT Before meals and at bedtime May 03, 2023 5:09pm May 07, 2023 2:27pmStart: 04-28-2023 End: 86-08-1530mwotcs 8 [IU] by subcutaneous injection once daily before dinner Insulin Aspart U-100 (Novolog Flexpen U-100 Insulin) 100 unit/mL (3 mL) insulin pen Discontinued 8 UNIT SUBCUT once daily before dinner April 27, 2023 11:00pm May 03, 2023 4:10pmStart: 04-28-2023 End: 88-14-0694oelhsj 5 [IU] by subcutaneous injection after breakfastInsulin Aspart U-100 (Novolog Flexpen U-100 Insulin) 100 unit/mL (3 mL) insulin pen Discontinued 5 UNIT SUBCUT After breakfast and lunch April 27, 2023 11:00pm May 03, 2023 4:10pmStart: 04-28-2023 End: 76-99-4392nmiijy 8 [IU] by subcutaneous injection once daily before dinner Insulin Aspart U-100 (Novolog Flexpen U-100 Insulin) 100 unit/mL (3 mL) insulin pen Discontinued 8 UNIT SUBCUT once daily before dinner April 28, 2023 12:00am May 03, 2023 5:10pmStart: 04-28-2023 End: 67-35-0316sxdjro 5 [IU] by subcutaneous injection after breakfastInsulin Aspart U-100 (Novolog Flexpen U-100 Insulin) 100 unit/mL (3 mL) insulin pen Discontinued 5 UNIT SUBCUT After breakfast and lunch April 28, 2023 12:00am May 03, 2023 5:10pmStart: 11-31-4501pkdjsa 8 [IU] by subcutaneous injection once daily before dinnerInsulin Aspart U-100 (Novolog Flexpen U-100 Insulin) 100 unit/mL (3 mL) insulin pen Active 8 UNIT SUBCUT once daily before dinner April 28, 2023 12:00amStart: 11-40-4169pdopfi 5 [IU] by subcutaneous injection after breakfastInsulin Aspart U-100 (Novolog Flexpen U-100 Insulin) 100 unit/mL (3 mL) insulin pen Active 5 UNIT SUBCUT After breakfast and lunch April 28, 2023 12:00amInsulin Aspart U-100 (Novolog U-100 Insulin Aspart) 100 unit/mL solution (20 sources)Start: 08-31-2023 End: 60-12-4368Vmudumt Aspart U-100 (Novolog U-100 Insulin Aspart) 100 unit/mL solution Discontinued 50 UNIT CNTSUBQINF Daily August 31, 2023 12:00am September 05, 2023 2:28pm per insulin pumpStart: 08-31-2023 End: 26-07-5700Vxdxxrk Aspart U-100 (Novolog U-100 Insulin Aspart) 100 unit/mL solution Discontinued 50 UNIT CNTSUBQINF Daily August 31, 2023 1:00am September 05, 2023 3:28pm per insulin pumpInsulin Disposable Pump (Omnipod DASH PDM, Gen 4,) kit (20 sources)Start: 05-30-2024 End: 32-90-6912Mtxtmox Disposable Pump (Omnipod DASH PDM, Gen 4,) kit 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) Basal: 12A 0.3, 7A 0.4, 9P 0.5, 10 units breakfast, 8 units with lunch, 7 dinner, ISF: 75 1 each 05/30/2024 05/02/2025 Discontinued (Therapy completed) Start: 49-23-4942Vizdmgm Disposable Pump (Omnipod DASH PDM, Gen 4,) kit 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) Basal: 12A 0.3, 7A 0.4, 9P 0.5, 10 units breakfast, 8 units with lunch, 7 dinner, ISF: 75 1 each 05/30/2024 ActiveStart: 66-23-8171Jikazei Disposable Pump (Omnipod DASH PDM, Gen 4,) kit Indications: Diabetes mellitus secondary to p ancreatic insufficiency (CMS/HCC) Basal: 12A 0.3, 7A 0.4, 9P 0.5, 10 units breakfast, 8 units with lunch, 7 dinner, ISF: 75 1 each 05/30/2024 ActiveStart: 02-04-2023 End: 97-27-6469Zzmathc Disposable Pump (Omnipod DASH PDM, Gen 4,) kit Indications: 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) Basal: 12A 0.3, 7A 0.4, 9P 0.5, 6 units breakfast/lunch, 7 dinner, ISF: 75 1 each 02/04/2023 05/30/2024 Discontinued (Reorder)Start: 41-41-7950Aeucniv Disposable Pump (Omnipod DASH PDM, Gen 4,) kit Indications: 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) Basal: 12A 0.3, 7A 0.4, 9P 0.5, 6 units breakfast/lunch, 7 dinner, ISF: 75 1 each 02/04/2023 Activeinsulin regular (HUMULIN R;NOVOLIN R) 100 Units in sodium chloride 0.9 % 100 mL infusion (1 source)Start: 01-02-2022 End: 84-17-3813wrtibkj regular (HUMULIN R;NOVOLIN R) 100 Units in sodium chloride 0.9 % 100 mL infusioniohexol (OMNIPAQUE 240) injection 100 mL (1 source)Start: 01-05-2022 End: 02-22-2334hrqlqky (OMNIPAQUE 240) injection 100 mL10 ml iron sucrose 20 mg/ml injection (20 sources)Parenteral Iron ReplacementStart: 02-18-2024 End: 99-80-6224Oykz Sucrose (Venofer) 200 mg iron/10 mL solution Discontinued 100 MG IV 3 Times a week 0 February 18, 2024 12:00am March 15, 2024 10:49am administer over 30 minslactobacillus acidophilus [id number] unt oral capsule (20 sources)Start: 08-31-2023 End: 44-07-7303zbmm 10 capsules by mouth once dailyLactobacillus Acidophilus (Probacap) 10 billion cell capsule Discontinued 100 MMU CELLS PO Daily August 31, 2023 1:00am September 05, 2023 3:28pm End: 38-11-4793Mrohfvedqrfnb (Probiotic Acidophilus) capsule 1 capsule 1 (one) time each day at the same time. 05/02/2025 Discontinued (Therapy completed) lidocaine hydrochloride 10 mg/ml injectable solution (20 sources)Antiarrhythmic, Amide Local AnestheticStart: 05-03-2023 End: 57-63-3775Zbtcvzjat Hcl (Xylocaine) 10 mg/mL (1 %) Solution Discontinued 0.1 ML INTRADERMA Pre-Op as needed for Venipuncture x 1 Dose 0 0 May 03, 2023 12:00am May 03, 2023 5:10pmlisinopril 2.5 mg oral tablet (20 sources)Angiotensin Converting Enzyme InhibitorStart: 03-27-2024 End: 11-13-1297vfam 1 tablet by mouth once daily in the morningLisinopril 2.5 mg tablet Discontinued 2.5 MG PO Every morning May 16, 2024 1:00am April 06, 2025 9:44amloratadine 10 mg oral tablet (20 sources)Start: 10-26-2023 End: 00-52-3813hbin 1 tablet by mouth once dailyloratadine (Claritin) 10 MG tablet Take 1 tablet by mouth Daily 10/26/2023 05/02/2025 Discontinuedtake 1 tablet by mouth every twenty-four hoursClaritin 10 MG 1 tablet Orally Once a day Activemagnesium hydroxide 80 mg/ml oral suspension (20 sources)Start: 05-03-2023 End: 31-15-8845jude 1 mL by mouth twice daily as needed for constipation Magnesium Hydroxide (Milk Of Magnesia) 400 mg/5 mL Suspension Discontinued 30 ML PO Twice daily as needed for Constipation 0 0 May 03, 2023 12:00am May 07, 2023 2:27pmStart: 05-03-2023 End: 85-19-1157sgrl 1 mL by mouth twice daily as needed for constipation Magnesium Hydroxide (Milk Of Magnesia) 400 mg/5 mL Suspension Discontinued 30 ML PO Twice daily as needed for Constipation 0 May 03, 2023 12:00am May 07, 2023 2:27pmStart: 05-03-2023 End: 78-32-5624wbol 1 mL by mouth twice daily as needed for constipation Magnesium Hydroxide (Milk Of Magnesia) 400 mg/5 mL Suspension Discontinued 30 ML PO Twice daily as needed for Constipation 0 May 02, 2023 11:00pm May 07, 2023 1:27pmStart: 05-03-2023 End: 88-08-0662eapr 1 mL by mouth twice dailyMagnesium Hydroxide (Milk Of Magnesia) 400 mg/5 mL Suspension Discontinued 30 ML PO Twice daily 0 May 02, 2023 11:00pm May 07, 2023 1:27pmStart: 05-03-2023 End: 55-53-9026phcc 1 mL by mouth twice dailyMagnesium Hydroxide (Milk Of Magnesia) 400 mg/5 mL Suspension Discontinued 30 ML PO Twice daily 0 May 03, 2023 12:00am May 07, 2023 2:27pmStart: 15-34-8783dlgv 1 mL by mouth twice dailyMagnesium Hydroxide (Milk Of Magnesia) 400 mg/5 mL Suspension Active 30 ML PO Twice daily 0 2022 12:00ammagnesium oxide 400 mg oral tablet (1 source)Start: 01-07-2022 End: 26-09-0170swujahrpr oxide (MAG-OX) tablet 400 mg50 ml magnesium sulfate 40 mg/ml injection (1 source)Start: 01-05-2022 End: 93-89-3910hqfvbqang sulfate 2000 mg in 50 mL IVPB premixmethocarbamol (ROBAXIN) 750 mg in dextrose 5 % 100 mL IVPB (1 source)Start: 01-02-2022 End: 56-65-6147480 mg, IntraVENous, at 200 mL/hr, Administer over 30 Minutes, EVERY 6 HOURS, First dose on Wed01/02/22 at 2300metroNIDAZOLE 500 mg oral tablet (20 sources)Nitroimidazole AntimicrobialStart: 09-05-2023 End: 17-30-6956rewc 1 tablet by mouth three times dailyMetronidazole 500 mg Tablet Discontinued 500 MG PO Three times daily 36 12 0 September 05, 2023 1:0 0am October 21, 2023 8:41amMultiple Vitamins-Minerals (Centrum Silver 50+Men) tablet (20 sources) End: 24-36-9150xbot 1 tablet by mouth once dailyMultiple Vitamins-Minerals (Centrum Silver 50+Men) tablet Take 1 tablet by mouth 1 (one) time each day. 05/02/2025 Discontinuedtake 1 tablet by mouth once dailyMultiple Vitamins- Minerals (Centrum Silver 50+Men) tablet Take 1 tablet by mouth 1 (one) time each day. LnyycyAvdbpdimzmqy-Qguspdzs-Jhmgfm (Multivitamin 50 Plus) tablet (20 sources)Start: 08-31-2023 End: 83-53-7909Eqvbagscjzrk-Minerals-Lutein (Multivitamin 50 Plus) tablet Discontinued 1 TAB PO Daily August 31, 2023 1:00am February 08, 2024 1:25pm On Hold: duplicateStart: 08-31-2023 End: 83-78-5847Chvjtvklyjya-Minerals-Lutein (Multivitamin 50 Plus) tablet Discontinued 1 TAB PO Daily August 31, 2023 12:00am February 08, 2024 12:25pm On Hold: duplicateStart: 08-31-2023 End: 83-36-5961Tejjxzcepjvt-Minerals-Lutein (Multivitamin 50 Plus) tablet Discontinued 1 TAB PO Daily August 31, 2023 12:00am February 08, 2024 12:25pm Start: 08-31-2023 End: 60-24-0378Yjqzerpyxngz-Minerals-Lutein (Multivitamin 50 Plus) tablet Discontinued 1 TAB PO Daily August 31, 2023 1:00am February 08, 2024 1:25pm Start: 39-28-7685Wlgbyvmzcjnp-Minerals-Lutein (Multivitamin 50 Plus) tablet Active 1 TAB PO Daily August 31, 2023 1:00amnitroglycerin 0.4 mg sublingual tablet (20 sources)Nitrate VasodilatorStart: 05-03-2023 End: 38-68-2835Bblyzmjorzrxc 0.4 mg tablet, sublingual Discontinued 0.4 MG SUBLINGUAL Q5M as needed for chest pain30 2 July 16, 2023 1:00am September 05, 2023 3:28pm until response; do not exceed 3 doses per eventNitroglycerin 0.4 MG as directed Sublingual Activeomeprazole 20 mg delayed release oral capsule (20 sources)Proton Pump InhibitorStart: 05-16-2024 End: 17-93-7350rinf 1 capsule by mouth twice dailyOmeprazole 20 mg capsule,delayed release(DR/EC) Discontinued 20 MG PO Twice daily May 16, 2024 1:00am August 31, 2024 11:10amStart: 04-05-2024 End: 47-96-4131Sismbspfpf Magnesium 20 mg tablet Take 20 mg by mouth. 04/05/2024 04/05/2025 Activepantoprazole 40 mg oral granules (20 sources)Proton Pump InhibitorStart: 02-08-2024 End: 52-53-4379oaol 40 mg by mouth twice dailyPantoprazole (Protonix) [address] for susp in packet Discontinued 40 MG PO Twice daily 180 90 0 February 08, 2024 12:00am February 15, 2024 10:08amStart: 11-11-2023 End: 73-41-6146oyfk 1 tablet by mouth once daily, then take 1 tablet by mouth once dailyPantoprazole (Protonix) 40 mg tablet,delayed release (DR/EC) Discontinued 40 MG PO Daily 180 90 0 November 11, 2023 1:22pm February 08, 2024 1:25pm 40 mg p.o. twice daily x 2 weeks, followed by 40 mg p.o. daily. Please dispense accordingly.Start: 09-03-2023 End: 73-49-7649gvbi 1 tablet by mouth twice daily, then take 1 tablet by mouth once dailyPantoprazole (Protonix) 40 mg tablet,delayed release (DR/EC) Discontinued 40 MG PO Twice daily 180 90 0 February 08, 2024 1:22pm May 16, 2024 1:54pm 40 mg p.o. twice daily x 2 weeks, followed by 40 mg p.o. daily. Please dispense accordingly.Start: 70-33-9310pqdw 1 tablet by mouth once daily before breakfastpantoprazole (PROTONIX) 40 MG tablet Take 1 tablet by mouth every morning (before breakfast) 90 tablet 1 01/07/2022 ActiveStart: 01-07-2022 take 1 tablet by mouth once daily before breakfastpantoprazole (PROTONIX) 40 MG tablet Take 1 tablet by mouth every morning (before breakfast) 90 tablet 1 01/07/2022 Active End: 43-93-2199faus 1 tablet by mouth before mealtimepantoprazole (ProtoNix) 40 MG EC tablet Take 40 mg by mouth in the morning. Take before meals. Do not crush, chew, or split. 05/02/2025 Discontinuedpiperacillin-tazobactam (ZOSYN) 3,375 mg in dextrose 5 % 50 mL IVPB (mini-bag) (2 sources)Start: 01-02-2022 End: 78-56-1617knemwfiwoboh-tazobactam (ZOSYN) 3,375 mg in dextrose 5 % 50 mL IVPB (mini-bag)Start: 01-02-2022 End: 66-81-7980fcvamqmzuorx-tazobactam (ZOSYN) 3,375 mg in dextrose 5 % 50 mL IVPB (mini-bag)potassium bicarbonate 20 meq effervescent oral tablet (1 source)Start: 01-07-2022 End: 38-99-9849tieyefkzp bicarb-citric acid (EFFER-K) effervescent tablet 40 mEq microencapsulated potassium chloride 20 meq extended release oral tablet (20 sources)Start: 05-03-2023 End: 07-94-6374Rahdbafaj Chloride (Klor-Con M20) 20 mEq Tablet,Er Particles/Crystals Discontinued 40 MEQ PO STAT as needed for Hypokalemia 0 0 May 03, 2023 12:00am May 03, 2023 5:10pmStart: 01-06-2022 End: 09-30-2870ldqasitkb chloride (KLOR-CON M) extended release tablet 40 mEq Start: 01-05-2022 End: 31-85-5911saguxxuaz chloride 10 mEq/100 mL IVPB (Peripheral Line)potassium phosphate 155 mg / sodium phosphate, dibasic 852 mg / sodium phosphate, monobasic 130 mg oral tablet (1 source)Start: 01-07-2022 End: 99-81-3020ttwihupjuy (K PHOS NEUTRAL) tablet 1 tabletpotassium phosphate 15 mmol in dextrose 5 % 250 mL IVPB (1 source)Start: 01-05-2022 End: 62-80-7202ndlgsvqep phosphate 15 mmol in dextrose 5 % 250 mL IVPBsacubitril 24 mg / valsartan 26 mg oral tablet (20 sources)Angiotensin 2 Receptor BlockerStart: 05-16-2024 End: 43-83-3524diby 1 tablet by mouth twice dailySacubitril-Valsartan (Entresto) 24-26 mg tablet Discontinued 1 TAB PO Twice daily May 16, 2024 1:00am June 16, 2024 7:21pmStart: 02-08-2024 End: 48-53-7450qqje 1 tablet by mouth twice dailySacubitril-Valsartan (Entresto) 24-26 mg Tablet Discontinued 1 TAB PO Twice daily 180 90 0 February 08, 2024 12:00am March 27, 2024 11:05am On Hold: hypotension End: 63-35-3862kygs 1 tablet by mouth in the morningsacubitril-valsartan (Entresto) 24-26 MG tablet Take 1 tablet by mouth in the morning and 1 tablet b efore bedtime. 04/17/2024 Discontinued (Therapy completed)Sennosides (Senna Laxative) 8.6 mg Tablet (20 sources)Start: 05-03-2023 End: 96-69-6872wqen 2 tablets by mouth at bedtime as needed for constipation Sennosides (Senna Laxative) 8.6 mg Tablet Discontinued 2 TAB PO Bedtime as needed for constipation 0 May 03, 2023 12:00am May 03, 2023 5:10pm Start: 05-03-2023 End: 64-03-5051nouo 2 tablets by mouth at bedtime as needed for constipation Sennosides (Senna Laxative) 8.6 mg Tablet Discontinued 2 TAB PO Bedtime as needed for constipation 0 May 02, 2023 11:00pm May 03, 2023 4:10pm Start: 05-03-2023 End: 75-72-9447bwjx 2 tablets by mouth at bedtimeSennosides (Senna Laxative) 8.6 mg Tablet Discontinued 2 TAB PO Bedtime 0 May 02, 2023 11:00pm May 03, 2023 4:10pmStart: 05-03-2023 End: 24-45-0217ihou 2 tablets by mouth at bedtimeSennosides (Senna Laxative) 8.6 mg Tablet Discontinued 2 TAB PO Bedtime 0 May 03, 2023 12:00am May 03, 2023 5:10pmStart: 20-78-2660lypv 2 tablets by mouth at bedtimeSennosides (Senna Laxative) 8.6 mg Tablet Active 2 TAB PO Bedtime 0 May 03, 2023 12:00amsennosides, senior care 8.6 mg oral tablet (3 sources)Start: 05-03-2023 End: 29-06-6476rlei 2 tablets by mouth at bedtime as needed for constipation Sennosides (Senna Laxative) 8.6 mg Tablet Discontinued 2 TAB PO Bedtime as needed for constipation 0 0 May 03, 2023 12:00am May 03, 2023 5:10pm sucralfate 1000 mg oral tablet (20 sources)Aluminum ComplexStart: 02-08-2024 End: 02-08-1688ejho 1 tablet by mouth every six hoursSucralfate 1 gram Tablet Discontinued 1 GM PO Every 6 hours 360 90 0 February 08, 2024 12:00am April 26, 2024 10:28amStart: 57-75-3896dxui 10 mL by mouth four times daily sucralfate (CARAFATE) 1 GM/10ML suspension Take 10 mLs by mouth 4 times daily 1200 mL 3 01/07/2022 ActiveStart: 59-08-0684apeq 10 mL by mouth four times daily sucralfate (CARAFATE) 1 GM/10ML suspension Take 10 mLs by mouth 4 times daily 1200 mL 3 01/07/2022 ActiveStart: 16-15-9601feedywwysp (CARAFATE) 1 GM/10ML suspension 1 gtetracycline hydrochloride 500 mg oral capsule (20 sources)Tetracycline-class AntimicrobialStart: 09-06-2023 End: 17-78-3708ekoj 1 capsule by mouth four times dailyTetracycline 500 mg capsule Discontinued 500 MG PO Four times daily 112 0 September 06, 2023 1:00am October 21, 2023 8:42amStart: 09-05-2023 End: 16-40-1092iaop 1 capsule by mouth four times dailyTetracycline 250 mg Capsule Discontinued 500 MG PO Four times daily 112 14 0 September 05, 2023 1:0 0am October 21, 2023 8:42amStart: 09-05-2023 End: 40-46-5507buxl 500 mg by mouth four times dailyTetracycline Discontinued 500 MG PO Four times daily 112 14 September 05, 2023 12:00am October 7:42amticagrelor 90 mg oral tablet (20 sources)Start: 07-16-2023 End: 73-47-2138wyxv 1 tablet by mouth twice dailyTicagrelor (Brilinta) 90 mg tablet Discontinued 90 MG PO Twice daily 180 3 July 16, 2023 1:00amFebruary 2023 3:28pmtriamcinolone acetonide 1 mg/ml topical cream (20 sources)CorticosteroidStart: 05-03-2023 End: 16-21-9339Exusiynjfzfif Acetonide 0.1 % Cream Discontinued 1 APPLIC TOPICAL Four times daily as needed for Irritation 15 0 May 07, 2023 12:00am October 28, 2023 10:38amStart: 30-91-8663Krymeji -40 mg Apr, 40 mg Triamcinolone Acetonide 0.1 % 1 application Externally Two times a Week Active Triamcinolone Acetonide 0.1 % 1 application Externally Two times a Week Active valsartan 80 mg oral tablet (20 sources)Angiotensin 2 Receptor BlockerStart: 10-28-2023 End: 68-02-3192izjq 1 tablet by mouth once dailyValsartan 80 mg tablet Discontinued 80 MG PO Daily 90 90 1 October 28, 2023 12:00am February 08, 2024 1:25pmStart: 09-03-2023 End: 32-24-8283Oxyqwcghq 160 mg Tablet Discontinued 80 MG PO Daily 30 30 0 September 03, 2023 11:53am October 2:46pmStart: 09-03-2023 End: 54-52-8643jqyn 80 mg by mouth once dailyValsartan Discontinued 80 MG PO Daily 30 30 September 03, 2023 10:53am October 28, 2023 1:46pmStart: 05-07-2023 End: 07-82-2176jisp 1 tablet by mouth once dailyValsartan 160 mg Tablet Discontinued 160 MG PO Daily 30 30 0 May 07, 2023 12:00am September 05, 2023 3:28pmStart: 05-03-2023 End: 28-84-4353tcsh 1 tablet by mouth once dailyValsartan 80 mg Tablet Discontinued 80 MG PO Daily 0 0 May 03, 2023 12:00am May 07, 2023 2:27pm Problems Active Problems Problem ClassificationProblemDateDocumented DateEpisodic/ChronicAcute and unspecified renal failure (2 sources)Acute renal failure syndromeOnset: 250354-16-9560TmfcjpaoGezhv myocardial infarction (20 sources)Myocardial infarction; Translations: [Non-ST elevation (NSTEMI) myocardial infarction]Onset: 642607-65-7438SoanwkwPtuitthiuikjwz/social admission (20 sources)Other reduced mobility; Translations: [Impaired mobility and activities of daily living]85-50-3605GmbuoobyNijdgjv on above:Problem List clean-up per request of Phys. EHR CmteAnxiety disorders (20 sources)Mixed anxiety and depressive disorder; Translations: [Anxiety disorder, unspecified]Onset: 01-08-2023 Resolved: 577738-39-3521OzrbbjbXzjtbtg dysrhythmias (20 sources)Paroxysmal ventricular tachycardia; 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]84-49-5256EemxaygDpgjbic on above:Problem List clean-up per request of Phys. EHR CmteChronic kidney disease (2 sources)Chronic kidney diseaseOnset: 593660-02-8647LfpfaazOotxfhb obstructive pulmonary disease and bronchiectasis (15 sources)Acute exacerbation of chronic obstructive airways disease; Translations: [Chronic obstructive pulmonary disease with (acute) exacerbation] Onset: 892591-02-4619PqdlryuXzjlwgd obstructive pulmonary disease and bronchiectasis (4 sources)Bronchitis; Translations: [Bronchitis, not specified as acute or chronic]37-97-0595SbppqgbhYzwxtptliu disorders (20 sources)H/O: cardiac pacemaker in situ; Translations: [Presence of automatic (implantable) cardiac defibrillator]Onset: 200689-57-3124Wodraff Congestive heart failure; nonhypertensive (20 sources)Acute on chronic systolic heart failure; Translations: [Acute on chronic systolic (congestive) heart failure]Onset: 334715-29-6910Kzjurog Coronary atherosclerosis and other heart disease (20 sources)Double coronary vessel disease; Translations: [Atherosclerotic heart disease of [place] coronary artery without angina pectoris]Onset: 01-31-2019 17-42-1236ZlzfcrrFuruals on above:Problem List clean-up per request of Phys. EHR CmteCoronary atherosclerosis and other heart disease (20 sources)Patient post percutaneous transluminal coronary angioplasty; Translations: [Coronary angioplasty status]49-87-8816LbdhvwwxIfrzewvxdq and other anemia (20 sources)Anemia; Translations: [Anemia, unspecified]24-71-7802TcbefufnKgisgvc on above:Problem List clean-up per request of Phys. EHR CmteOutside Source Comment: Comment on above: Problem List clean-up per request of Phys. EHR Cmte Deficiency and other anemia (3 sources)Anemia, unspecified; Translations: [Anemia, unspecified]05-08-2023 EpisodicDiabetes mellitus without complication (20 sources)Insulin pump present; Translations: [Presence of insulin pump (external) (internal)]Onset: 122422-33-4335RdzwnzmrTuntildqu of lipid metabolism (20 sources)Mixed hyperlipidemia; Translations: [Mixed hyperlipidemia]Onset: 852607-81-7674KkgffxmEihfvqirwe disorders (20 sources)Lewis's esophagus; 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]73-09-4648RoroqtuOsqkbjdur hypertension (20 sources)Hypertensive disorder; Translations: [Essential (primary) hypertension]Onset: 951890-77-1250JbgvwbwSdrixixh of upper limb (1 source)Other fracture of upper end of left radius, initial encounter for closed fracture; Translations: [Other fracture of upper end of left radius, initial encounter for closed fracture]Onset: 06-18-2761JfsuqzjyYnuouirnmoyueg ulcer (except hemorrhage) (20 sources)Perforation of stomach; Translations: [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]Onset: 01-06-2022 Resolved: 02-07-7837ZyvauffBndadwr on above:previous rupture with repair.Outside Source Comment: previous rupture with repair.Gastroduodenal ulcer (except hemorrhage) (20 sources)Acute gastric ulcer with perforation; Translations: [Acute gastric ulcer with perforation]Onset: 93-96-5626ZoutjuztSfwsehyzaabxvnde hemorrhage (20 sources)Melena; Translations: [Melena]42-66-5620LgcifaviWgwmplappuose symptoms and ill-defined conditions (20 sources)Hematuria, unspecified; Translations: [Blood in urine]Onset: 06-05-2022 Resolved: 15-69-8939OelplokjYlxoe valve disorders (20 sources)Non-rheumatic mitral regurgitation ; Translations: [Nonrheumatic mitral (valve) insufficiency]Onset: 666734-94-3583UvwqkyrXgdznbdwobn of prostate (20 sources)Benign prostatic hyperplasia; Translations: [Benign prostatic hyperplasia without lower urinary tract symptoms]Onset: ChronicHypertension with complications and secondary hypertension (2 sources)Hypertensive heart disease with congestive heart failure; Translations: [Hypertensive heart diseasewith heart failure]01-38-5772Cvwntoo Intestinal infection (20 sources)Infection caused by Helicobacter pylori; Translations: [Other specified bacterial intestinal infections]09-13-8928DwuvmlecWkpd disorders (20 sources)Moderate major depression, single episode; Translations: [Major depressive disorder, single episode, moderate]Onset: hronic Nonspecific chest pain (1 source)Chest pain, unspecified; Translations: [Chest pain, unspecified]Onset: 60-15-5472VyqdfpnhTukjzenrvxc deficiencies (20 sources)Deficiency of macronutrients; Translations: [Mild protein-calorie malnutrition]58-80-8688VyyvixrEqhvaqfpmcro (20 sources)Osteoporosis; Translations: [Age-related osteoporosis without current pathological fracture]41-51-0743ZjzvakeJkrhzqp on above:Problem List clean-up per request of Phys. EHR CmteOutside Source Comment: Comment on above: Problem List clean-up per request of Phys. EHR CmteOther aftercare (2 sources)Post-discharge follow-up; Translations: [Encounter for follow-up examination after completed treatment for conditions other than malignant neoplasm]43-07-3000UjdsfgusSzyjd aftercare (2 sources)Encounter for follow-up examination after completed treatment for conditions other than malignant neoplasm; Translations: [Unspecified follow-up examination]94-47-3226SbubvqnyNsbmn and ill-defined heart disease (20 sources)Left ventricular systolic dysfunction; Translations: [Other ill- defined heart diseases]31-82-7387SlpwdjrFapxclc on above:Problem List clean-up per request of Phys. EHR CmteOther and ill-defined heart disease (7 sources)Other ill-defined heart diseases; Translations: [Heart disease, unspecified]00-39-7290KdofbqbFhqxq and ill-defined heart disease (3 sources)Mild left ventricular systolic dysfunction; Translations: [Other ill- defined heart diseases]42-81-5458SvnjckkKgqioji on above:Problem List clean-up per request of Phys. EHR CmteOther circulatory disease (4 sources)Orthostatic hypotension; Translations: [Orthostatic hypotension] 57-18-0143QbfftnpdJudur connective tissue disease (4 sources)Dupuytren contracture of right palm; Translations: [Palmar fascial fibromatosis [Dupuytren]]EpisodicOther diseases of kidney and ureters (3 sources)Hydronephrosis; Translations: [Unspecified hydronephrosis]Onset: 99-42-9447AmgronckXumcn fractures (20 sources)Fracture of spinous process of cervical vertebra; Translations: [Fracture of neck, unspecified, initial encounter]31-29-4212SfoqswnrUazuh fractures (20 sources)Fracture of cervical spine; Translations: [Fracture of neck, unspecified, initial encounter]59-17-1396FkdoewwbLrvub fractures (20 sources)Closed fracture of vertebral column; Translations: [Closed fracture of vertebra]26-48-2406FckgdnwpJoclw fractures (20 sources)Closed fracture of fifth cervical vertebra; Translations: [Unspecified displaced fracture of fifth cervical vertebra, initial encounter for closed fracture]40-70-2622KvpdbhygJyqsi fractures (2 sources)Unspecified displaced fracture of fifth cervical vertebra, initial encounter for closed fracture; Translations: [Closed fracture of fifth cervical vertebra]32-58-4341AzrblnasKawzv gastrointestinal disorders (2 sources)Viscus structure finding; Translations: [Other specified symptoms and signs involving the digestivesystem and abdomen]Onset: 09-49-2581AkrvrtxxAietr lower respiratory disease (2 sources)Orthopnea; Translations: [Orthopnea]Onset: 185680-37-4736 EpisodicOther lower respiratory disease (1 source)Orthopnea; Translations: [Orthopnea]Onset: 54-35-8537VihnujepLizne lower respiratory disease (9 sources)Pleuritic pain; Translations: [Pleurodynia]46-95-2485PoktgxwaQlpnb lower respiratory disease (2 sources)Lower respiratory tract infection; Translations: [Unspecified acute lower respiratory infection]05-52-8669FywccwsaKavxk nervous system disorders (6 sources)Carpal tunnel syndrome; Translations: [Carpal tunnel syndrome, left upper limb]00-96-0470XjuwnnzUmbgo nervous system disorders (7 sources)Other acute postprocedural pain; Translations: [Pain in joint, pelvic region and thigh]22-65-9768MitvfeseRdcmf nutritional; endocrine; and metabolic disorders (1 source)Hypomagnesemia; Translations: [Hypomagnesemia]Onset: 75-72-3939Tztepre Other screening for suspected conditions (not mental disorders or infectious disease) (20 sources)Raised cardiac enzyme or marker; Translations: [Other specified abnormal findings of blood chemistry]Onset: 389532-76-3837SkqxkcdqHlivflf on above:Problem List clean-up per request of Phys. EHR CmtePancreatic disorders (not diabetes) (20 sources)Pancreatic insufficiency; Translations: [Other specified diseases of pancreas]Onset: 473456-41-6856CdtyrsexFtqekmkjmn and visceral atherosclerosis (2 sources)Arteriosclerotic vascular diseaseOnset: hronic Peritonitis and intestinal abscess (17 sources)Abdominal tswambr10-97-1534ZoyodtupBascazzz; pneumothorax; pulmonary collapse (4 sources)Pleurisy; Translations: [Pleurisy]22-89-9011IeambjpcCpnrwaplo heart disease (20 sources)Pulmonary arterial hypertension; Translations: [Secondary pulmonary arterial hypertension]Onset: 206007-28-3937EtqfdcwWbkanhjh codes; unclassified (20 sources)Disorder of pancreas; 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]Onset: 86-98-1343KjdkcuzOdnupurv codes; unclassified (20 sources)History of pancreatectomy; 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]57-11-7899ChpvdbxGdrkxizb codes; unclassified (4 sources)Acquired total absence of pancreas; 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]83-49-1584GujkzdkAwjipyxf codes; unclassified (2 sources)Body mass index 20-24 - normal; Translations: [Body mass index (BMI) 20.0-20.9, adult]Onset: 587131-54-0586PxmgtcneXtznfkmnueua (1 source)CONTACT W/AND (SUSP) EXPOS COVID-19; Translations: [CONTACT W/AND (SUSP) EXPOS COVID-19]Onset: 49-81-2643Zpsuiqbxwits (1 source)I25.10 - Atherosclerotic heart disease of [place] coronary artery without angina pectoris,I25.5 - Ischemic cardiomyopathy,R06.00 - Dyspnea, unspecified Unclassified (2 sources)Patient encounter pkoqws55-79-6275Aphlfjgtvmwl (1 source)High Blood SugarOnset: 10-26-2024 Past or Other Problems Problem ClassificationProblemDateDocumented DateEpisodic/ChronicAbdominal pain (3 sources)Upper abdominal pain, unspecified; Translations: [UPPER ABDOMINAL PAIN, UNSPECIFIED]Onset: 39-04-9933BgmuchkwOajfpxg dysrhythmias (20 sources)Bradycardia; Translations: [Bradycardia, unspecified]Onset: 130207-37-7360WtksrkraWbytcxzfbl and other anemia (1 source)Iron deficiency anemia, unspecified; Translations: [Iron deficiency anemia, unspecified]Onset: 31-39-2422SaggsgtlKxixewri mellitus with complications (20 sources)Diabetes mellitus; Translations: [Uncontrolled diabetes mellitus] Onset: 05-02-2023 Resolved: 905576-49-1117EmuxpxdUmggdrl on above:Problem List clean-up per request of Phys. EHR CmteDiabetes mellitus without complication (20 sources)Secondary diabetes mellitus; Translations: [Diabetes mellitus due to underlying condition without complications]Onset: 01-02-2022 Resolved: 37-33-1083GnhsuwtRaywfbx on above:type 1- insulin pump in place. Outside Source Comment: Comment on above: Problem List clean-up per request of Phys. EHR CmteFracture of neck of femur (hip) (20 sources)Closed intertrochanteric fracture; Translations: [Displaced intertrochanteric fracture of right femur, initial encounter for closed fracture]Onset: 05-25-2023 Resolved: 154779-67-0184IvyzafkgEdnxope on above:Problem List clean-up per request of Phys. EHR CmteImmunizations and screening for infectious disease (20 sources)Needs influenza immunization; Translations: [Encounter for immunization]Onset: 05-19-2023 Resolved: 364791-32-6747XaowfhvlPqib disorders (20 sources)Mood disordersOnset: 425219-30-6272Ehtxlorfb of unspecified nature or uncertain behavior (20 sources)Benign neoplasm of pancreas; Translations: [Neoplasm of unspecified behavior of digestive system]Onset: 06-23-2018 Resolved: 269596-88-2477TgzjfwygFzjexxdjasa deficiencies (20 sources)Iron deficiency; Translations: [Iron deficiency]Onset: 06-16-2024 83-44-2737KpqrbghvYivws connective tissue disease (20 sources)Dupuytren's contracture; Translations: [Palmar fascial fibromatosis [Dupuytren]]Onset: 02-05-2023 Resolved: 950262-25-3831KdxsmeqjTwmhv connective tissue disease (20 sources)Pain of right thigh; Translations: [Pain in right thigh]Onset: 05-19-2023 Resolved: 424262-65-3391PbpjrdxgEdumg fractures (20 sources)Closed fracture of fourth cervical vertebra; Translations: [Unspecified nondisplaced fracture of fourth cervical vertebra, subsequent encounter for fracture with routine healing]Onset: 09-09-2023 Resolved: 573960-84-2204VisihqnzDfbfh lower respiratory disease (20 sources)Other nonspecific abnormal finding of lung field; Translations: [Other nonspecific abnormal findingof lung field]Onset: 02-05-2023 Resolved: 225386-08-2875ZrakgznsCwmax lower respiratory disease (6 sources)Pleurodynia; Translations: [Painful respiration]Onset: 07-16-2024 69-18-4324IprtzepcFwlvd nervous system disorders (20 sources)Carpal tunnel syndrome of left wrist; Translations: [Carpal tunnel syndrome, left upper limb]Onset: 02-28-2024 Resolved: 458196-95-7547SiajrhvPwvti nervous system disorders (20 sources)Hip pain; Translations: [Other acute postprocedural pain]Onset: 05-26-2023 Resolved: 607479-45-5856HpyeqlmdYrlzamz on above:Problem List clean-up per request of Phys. EHR CmtePathological fracture (20 sources)Fracture of bone of hip region; Translations: [Age-related osteoporosis with current pathological fracture, unspecified femur, sequela] Onset: 05-19-2023 Resolved: 857999-95-1949VwbddnojWrbleanwt (except that caused by tuberculosis or sexually transmitted disease) (2 sources)Bilateral pneumoniaOnset: 313325-93-4726OzpjryloYngpmasi codes; unclassified (2 sources)Body mass index (BMI) 20.0-20.9, adult; Translations: [Body mass index (BMI) 20.0-20.9, adult]Onset: 15-66-5732QmuvaesnIwgxvwrvrx (except in labor) (20 sources)Sepsis due to Escherichia coli; Translations: [Sepsis due to Escherichia coli [E. coli]]Onset: 05-02-2023 Resolved: 830364-60-0310EdkkktkvEbon and subcutaneous tissue infections (20 sources)Abscess of abdominal wall; Translations: [Cutaneous abscess of abdominal wall]Onset: 06-19-2024 Resolved: 866316-61-7455XrnsssxeZbhjqqhwu-nrrlmlk disorders (20 sources)Smoker; Translations: [Nicotine dependence, unspecified, uncomplicated]Onset: 2018 Resolved: 278934-61-0434ZccfhvcAnmhpybehsss (2 sources)Onset: 05-25-2023 Resolved: Results Test NameValueInterpretationReference RangeFacilityC Urineon 98-09-4752Hjohevzw identified Cx Nom (U)Microbiology PROCEDURE: Urine Culture [R1] SOURCE: U Cath BODY SITE: COLLECTED DATE/TIME: 05/17/2025 11:39 EST RECEIVED DATE/TIME: 05/17/2025 13:29 EST START DATE/TIME: 05/17/2025 13:29 EST FREE TEXT SOURCE: jorge Douglass PA-C, Chao Douglass PA-C, Chao FINAL REPORTS Final Report [] Verified Date/Time: 05/21/2025 11:26 EST 75,000 cfu/ml Pseudomonas fluorescens/putida 50,000 cfu/ml Stenotrophomonas maltophilia 50,000 cfu/ml Streptococcus agalactiae (Group B) 10,000 cfu/ml Staphylococcus aureus SUSCEPTIBILITY RESULTS LEGEND: S=Susceptible, N/R=Not Reported, Blank=Data not available, or drug not advisable or tested, I=Intermediate, ESBL=Extended spectrum beta-lactamase, R=Resistant, TFG=Thymidine-dependent strain, MARIANNE=Beta-lactamase positive, DORON=mcg/m;(mg/L), S*=Predicted susceptible interp, R*=Predicted resistant interp Psefluput Stemal Strep B Antibiotic DORON Dilutn DORON Interp DORON Dilutn DORON Interp DORON Dilutn DORON Interp Aztreonam >16 R Cefepime <=2 S Gentamicin <=2 S Penicillin <=0.03 S Piperacillin/ <=8 S Tazobactam Tetracycline 8 I Tobramycin <=2 S Trimethoprim/ >2/38 R <=2/38 S Sulfa SA Antibiotic DORON Dilutn DORON Interp Amoxicillin/ <=4/2 S Clavulanate Ampicillin 8 MARIANNE Ampicillin/ <=8/4 S Sulbactam Cefazolin <=8 S Ceftaroline <=0.5 S Daptomycin <=1 S Linezolid <=2 S Nitrofurantoin <=32 S Oxacillin <=0.25 S Penicillin >8 MARIANNE Rifampin <=1 S Tetracycline <=4 S Trimethoprim/ <=0.5/9.5 S Sulfa Vancomycin 1 S Performing Locations R1: This test was performed at: [facility], [address] [place] [address], [phone] , , XumjjjHoexwmGalion HospitalComment on above:Performed By: #### [id number] #### [facility] [address] [place] [id number] Clinical Summaryon 11-31-0469GQ Clinical SummaryED Clinical Summary [address] [address] ED Clinical Summary Person Information Name: MANOLO ROCHE [facility] Age: 89 Years : 1935 Sex: Male Language: Burkinan PCP: SALVADOR NARANJO DO Marital Status: Visit Id: Visit Reason: Catheter check; CATH ISSUES - BURNING Speciality: Acuity: 3 Enc Type: Emergency Med Service: Emergency Arrival: 05/17/2025 10:44:24 Discharge: 05/17/2025 12:34:22 LOS: 000 01:50 Checkin: 05/17/2025 10:44:24 Checkout: 05/17/2025 12:34:22 Dispo Type: Home (Routine DC) EVENTS: Event Name Event Status Request Date/Time Start Date/Time Complete Date/Time Arrive Complete 05/17/2025 10:44:24 05/17/2025 10:44:24 05/17/2025 10:44:24 Document Home Meds Request 05/17/2025 10:44:24 Triage Complete 05/17/2025 10:44:24 05/17/2025 10:58:27 05/17/2025 10:58:27 Bed Assign Complete 05/17/2025 10:47:31 05/17/2025 10:47:31 05/17/2025 10:47:31 Dr Exam Complete 05/17/2025 10:47:31 05/17/2025 10:53:36 05/17/2025 10:53:36 RN Exam Complete 05/17/2025 10:47:31 05/17/2025 11:08:04 05/17/2025 11:08:04 Registration Complete 05/17/2025 10:52:01 05/17/2025 10:52:01 05/17/2025 10:52:01 Reg Complete Request 05/17/2025 10:52:01 Reg Bed Request Complete 05/17/2025 10:52:01 05/17/2025 10:52:01 05/17/2025 10:52:01 Registration Request 05/17/2025 10:53:36 Dr Exam Complete 05/17/2025 10:58:22 05/17/2025 10:58:22 05/17/2025 10:58:22 Pending Labs Complete 05/17/2025 11:06:38 05/17/2025 11:39:18 Lab Complete 05/17/2025 11:06:38 05/17/2025 11:39:18 Urine Collect Complete 05/17/2025 11:06:38 05/17/2025 11:39:18 Pending Labs Complete 05/17/2025 11:39:18 05/17/2025 11:39:18 05/17/2025 12:07:50 Lab Complete 05/17/2025 11:39:18 05/17/2025 11:39:18 05/17/2025 12:07:50 Urine Collect Complete 05/17/2025 11:39:18 05/17/2025 11:39:18 05/17/2025 12:07:50 Pending Labs Collected 05/17/2025 12:02:19 05/17/2025 12:02:19 Lab Collected 05/17/2025 12:02:19 05/17/2025 12:02:19 Discharge Complete 05/17/2025 12:27:20 05/17/2025 12:34:28 05/17/2025 12:34:28 Transfer Complete 05/17/2025 12:34:28 05/17/2025 12:34:28 05/17/2025 12:34:28 ADDRESS: [address] [place] [id number] PHYS DOC NOTES: MEDICAL INFORMATION: Prescriptions Given: New Medications [id number], [address] [place], [place] [id number], [phone] phenazopyridine (Pyridium 200 mg Tab) 1 Tablets By Mouth 3 times a day for 2 Days. Refills: 0. Medications to Continue Taking That Have Changed [id number], [address] [place], [place] [id number], [phone] START: cephalexin (Keflex 500 mg Cap) 1 Capsules By Mouth every 12 hours for 5 Days. Refills: 0. Other Medications START: cephalexin (Keflex 500 mg Cap) 1 Capsules By Mouth every day. Take 1 cap day prior to procedure and 1 cap day of procedure. Refills: 0. Medications to Continue with No Changes Other Medications aspirin (aspirin 81 mg oral capsule) By Mouth every 24 hours. atorvastatin (atorvastatin 40 mg Tab) ergocalciferol (Vitamin D) By Mouth every week. hydrochlorothiazide-metoprolol (hydrochlorothiazide-metoprolol 12.5 mg-25 mg oral tablet, extended release) insulin aspart (NovoLOG FlexPen 100 units/mL injectable solution) insulin glargine (Lantus Solostar Pen 100 units/mL subcutaneous solution) multivitamin (Multi Vitamins oral tablet) By Mouth every day. pancrelipase (Creon 24,000 units oral delayed release capsule) paroxetine (paroxetine 40 mg Tab) tamsulosin (tamsulosin 0.4 mg Cap) 1 Capsules By Mouth at bedtime. Refills: 11. PATIENT EDUCATION INFORMATION: Instructions: Urinary Tract Infection, Adult Follow up: With: Address: Devin: [address], [address], [address] [address] Business (1) In 3 days 05/20/2025 DIAGNOSIS: Bacterial infection, unspecified; UTI (urinary tract infection), bacterialNormal [facility] CenterED [facility]-Physicianon [id number] Note-PhysicianED Note-Physician Basic Information Time Seen: Evonne OSORIOChao 05/17/2025 10:53 Chief Complaint pt states he has been ahving burning in his penis for a week but worsened today. pt is to see his urologist next week for procedures. the catheter has been in for a month for urinary retention. History of Present Illness 89-year-old male comes to the ED for evaluation of dysuria. He has a chronic indwelling Chase catheter. Over the last few days had increased burning at the urethral meatus. He feels like his cath hasbeen draining well. There is no abdominal pain. No fever, chills, nausea, vomiting. Review of Systems A 10 point review of systems is negative except as noted above. Medical and Surgical History: Reviewed and noted Social history: Lives at home Tobacco: Denies Physical Exam Vitals & Measurements T: 36.6 ???C(Oral) HR: 65(Peripheral) RR: 16 BP: 114/85 SpO2: 99% HT: 177 cm WT: 61.7 kg BMI: 19.69 Nurses notes and vital signs reviewed and patient is not hypoxic. General: The patient appears well, resting comfortably. Skin: Warm, dry. Head: Atraumatic. Neck: No JVD. Eye: Normal conjunctiva. Ears, Nose, Mouth, and Throat: Moist mucous membranes. Cardiovascular: Strong distal pulses. Chest wall: Respiratory: Respirations are nonlabored. Back: Normal range of motion. Musculoskeletal: Normal ROM with no gross deformity. Gastrointestinal: Urological: Exam performed with female nurse, Emmanuelle, at bedside. Uncircumcised male. Foreskin isappropriately extended over the glans and Chase catheter. Foreskin was retracted and the area was observed. There is no abnormal soft tissue swelling ecchymosis or erythema. Foreskin was replaced. Chase cath appears to be well-placed. Patient draining well but there is purulence noted in the urine. Neurological: Awake and alert. No focal deficits. Follows commands. Psychiatric: Cooperative. Medical Decision Making Urinalysis does show infection. No previous urine culture for reference. He started on Keflex and Pyridium. Chase catheter is draining well. Already has an appointment next week with urology for follow-up. Patient was encouraged to return to the ED if symptoms worsen or change. Assessment/Plan Bacterial infection, unspecified (A49.9: Bacterial infection, unspecified) UTI (urinary tract infection), bacterial (N39.0: Urinary tract infection, site not specified) Orders: cephalexin, 500 mg = 1 cap(s), Oral, q12hr, X 5 day(s), # 10 cap(s), Refills(s) 0, Pharmacy: [facility]/pharmacy #[id number], 177, cm, 05/17/25 10:58:00 EST, Height/Length Dosing, 61.7, kg, 05/17/25 10:58:00 EST,Weight Dosing phenazopyridine, 200 mg = 1 tab(s), Oral, TID, X 2 day(s), # 6 tab(s), Refills(s) 0, Pharmacy: [facility]/pharmacy #[id number], 177, cm, 05/17/25 10:58:00 EST, Height/Length Dosing, 61.7, kg, 05/17/25 10:58:00 EST, Weight Dosing UA with Cult Rflx UA with Cult Rflx SP Urine Culture Disposition Plan Patient Discharge Condition Disposition: Discharged home Condition: Improved and stable Counseled: Patient and/or family were counseled to workup, results, treatment plan and follow-up recommendations Discharge Prescription List Prescriptions Keflex 500 mg Cap, 500 mg= 1 cap(s), Oral, q12hr Pyridium 200 mg Tab, 200 mg= 1 tab(s), Oral, TID Follow-up With When Contact Information Tristan JULIO In 3 days 05/20/2025 EST [address] [facility] [address] [place], [place] [id number] [facility] (1) Additional Instructions: Patient Education Urinary Tract Infection, Adult Attestation I performed a substantive part of the MDM during the patient???s E/M visit. I personally made or approved the documented management plan and acknowledge its risk of complications. (Independent Interpretation) My (EKG/X-Ray/US/CT) interpretation as above. (Discussion) Management/test interpretation discussed with APC. This report was transcribed using voice recognition software. Every effort was made to ensure accuracy, however, inadvertently computerized manipulator operator mistakes may be present. Appropriate healthcare PPE was used in evaluating this patient. Problem List/Past Medical History Ongoing Acute kidney injury Anemia Arteriosclerotic vascular disease Lewis's esophagus Benign prostatic hyperplasia Bilateral pneumonia Bradycardia Carpal tunnel syndrome Chronic kidney disease Deficiency of macronutrients Dyslipidemia Essential hypertension Gastric ulcer Hydronephrosis Incomplete bladder emptying Iron deficiency Myocardial infarction Osteoporosis Screening PSA (prostate specific antigen) Urinary retention Historical Benign neoplasm of pancreas Diabetes mellitus Procedure/Surgical History Appendectomy, Cardiac pacemaker, Cataract extraction, H/O splenectomy, Pancreatectomy, Placement ofstent in cardiac conduit, Tonsillectomy. Medications Inpatient No active inpatient medications Home aspirin 81 mg oral capsule, Oral, q24hr atorvastat (more content not included)...[facility] Comment on above:Result Comment: Electronically Signed By: Chao Douglass PA-C\.br\Date and Time Signed: 05/17/2512:33 EST\.br\Electronically Co-Signed By: Mely Rollins M.D.\.br\Date and Time Co-Signed: 05/17/25 17:40 ESTED Patient Summaryon [id number] Patient SummaryED Patient Summary [place] [id number] Patient Discharge Instructions Person Information Name: MANOLO ROCHE Age: 89 Years Arrival Date: 05/17/2025 10:44:24 Discharge Diagnosis: Bacterial infection, unspecified; UTI (urinary tract infection), bacterial Primary Care Physician: SALVADOR NARANJO DO Provider Information Primary Provider: Mely Rollins M.D. Advanced Auxiliary Plant Operator:Chao Douglass PA-C The exam and treatment you received in the Emergency Department were for an urgent problem and are not intended as complete care. It is important that you follow up with a doctor, nurse practitioner,or physician???s plumber's assistant for ongoing care. If your symptoms become worse or you do not improve asexpected and you are unable to reach your usual health care provider, you should return to the Emergency Department. We are available 24 hours a day. MANOLO ROCHE has been given the following list of patient education materials, prescriptions and follow-up instructions: Follow-up Instructions: With: Address: When: Tristan MELCHOR [address] [place] [address], [address], [address] [address] Business (1) In 3 days 05/20/2025 In the event that this physician does not participate in your insurance network, please consult with your insurance company to find a nearby participating provider. Patient Education Materials: Urinary Tract Infection, Adult A MESSAGE TO ALL PATIENTS REGARDING OPIOIDS PRESCRIPTION OPIOIDS: WHAT YOU NEED TO KNOW Prescription opioids can be used to help relieve yrwbnpuo-jf-qwzswg pain and are often prescribed following a surgery or injury, or for certain health conditions. These medications can be an important part of the treatment but also come with serious risks. It is important to work with your healthcare provider to make sure you are getting the safest, most effective care. WHAT ARE THE RISKS AND SIDE EFFECTS OF OPIOID USE? Prescription opioids carry serious risks of addiction and overdose, especially with prolonged use. An opioid overdose, often marked by slowed breathing, can cause sudden . The use of prescription opioids can have a number of side effects as well, even when taken as directed: ??? Tolerance???meaning you might need to take more of the medication for the same pain relief ??? Physical dependence???meaning you have symptoms of withdrawal when a medication is stopped ??? Increased sensitivity to pain ??? Constipation ??? Nausea, vomiting, and dry mouth ??? Sleepiness and dizziness ??? Confusion ??? Depression ??? Low levels of testosterone that can result in lower sex drive, energy, and strength ??? Itching and sweating RISKS ARE GREATER WITH: ??? History of drug misuse, substance use disorder, or overdose ??? Mental health conditions (such as depression or anxiety) ??? Sleep apnea ??? Older age (65 years and older) ??? Avoid alcohol while taking prescription opioids. Also, unless specifically advised by your health care provider, medications to avoid include: ??? Benzodiazepines (such as Xanax or Valium) ??? Muscle relaxants (such as Soma or Flexeril) ??? Hypnotics (such as Ambien or Lunesta) ??? Other prescription opioids KNOW YOUR OPTIONS Talk to your health care provider about ways to manage your pain that don???t involve prescription opioids. Some of these options may actually work better and have fewer risks and side effects. Options may include: ??? Pain relievers such as acetaminophen, ibuprofen, and naproxen ??? Some medication that are also used for depression or seizures ??? Physical therapy and exercise ??? Cognitive behavioral therapy, a psychological, goal-directed approach, in which patients learn how to modify physical, behavioral, and emotional triggers of pain and stress. IF YOU ARE PRESCRIBED OPIOIDS FOR PAIN: ??? Never take opioids in greater amounts or more often than prescribed. ??? Follow up with your primary health care provider. o Work together to create a plan on how to manage your pain. o Talk about ways to help manage your pain that don???t involve prescription opioids. o Talk about any and all concerns and side effects. ??? Help prevent misuse and abuse o Never sell or share prescription opioids. o Never use another person???s prescription opioids. ??? Store prescription opioids in a secure place and out of reach of others (this may include visitors, children, friends, and family). ??? Safely dispose of unused prescription opioids: Find your community drug take-back program or your pharmacy mail-back program, or flush them down the toilet, following guidance from the Food and Drug Administration (www.fda.gov/Drugs/ResourcesForYou). ??? Visit www.cdc.gov/drugoverdose to learn about the risks of opioids abuse and overdose. ??? If you (more content not included)...[facility] HospitalUA with Cult Rflxon [id number] (U)YellowNormalYellowMercy Health Allen HospitalComment on above:Order Comment: Added by [place]ornoe ExpertResult Comment: Microscopic readings are only performed on those samples that meet specific criteria set forth by [facility].Performed By: #### [id number] #### [facility] [address], [place] [address]Ahydzgt (U) [Mass/Vol]NegativeNormalNegMain Campus Medical CenterComment on above:Order Comment: Added by Monroe ExpertPerformed By: #### [id number] #### [facility] [address], [place] [address]Vibxjvh Ql (U)NegativeNormalNegMain Campus Medical Center Comment on above:Order Comment: Added by Monroe ExpertPerformed By: #### [id number] #### [facility] [address], [place] [address]GL Blood1+ mg/dLAbnormalNegativeMercy Health Allen Hospital Comment on above:Order Comment: Added by Monroe ExpertPerformed By: #### [id number] #### [facility] [address], [place] [address]UP ClarityEx.TurbidAbnormalClearFWestern Reserve Hospital Comment on above:Order Comment: Added by Monroe ExpertPerformed By: #### [id number] #### [facility] [address], [place] [address]IY Leuk Glh425 Jatinder/uLAbnormalNegativeMercy Health Allen HospitalComment on above:Order Comment: Added by Monroe ExpertPerformed By: #### [id number] #### [facility] [address], [place] [address]SJ Nitrite1+ mg/dLAbnormalNegMain Campus Medical Center Comment on above:Order Comment: Added by Monroe ExpertPerformed By: #### [id number] #### [facility] [address], [place] [address]XC pH8.0Invalid Interpretation Code5.0-9.0Mer[facility] Allen HospitalComment on above:Order Comment: Added by Monroe ExpertPerformed By: #### [id number] #### [facility] [address], [place] [address]SF Protein2+ mg/dLAbnormalNegMain Campus Medical Center Comment on above:Order Comment: Added by Monroe ExpertPerformed By: #### [id number] #### [facility] [address], [place] [address]SZ Spec Grav1.014Invalid Interpretation Code1.005-1.030Mer[facility] Health Allen HospitalComment on above:Order Comment: Added by Monroe Expert Performed By: #### [id number] #### [facility] [address], [place] [address]NV UrobilinogenNegativeNormalNegMain Campus Medical CenterComment on above:Order Comment: Added by Discern ExpertPerformed By: #### [id number] #### [facility] [address], [place] [address]EY WBC Qcmqk28-78PyvspkopTagpdjTwin City HospitalComment on above:Order Comment: Added by Discern ExpertPerformed By: #### [id number] #### [facility] [address], [place] [address]Qmmlirwoteaz (U) [Mass/Vol]NegativeNormalNegMain Campus Medical CenterComment on above:Order Comment: Added by Monroe ExpertPerformed By: #### [id number] #### [facility] [address], [place] [address]CK Bacteria4+ /HPFAbnormBarberton Citizens Hospital Comment on above:Order Comment: Added by Monroe ExpertPerformed By: #### [id number] #### [facility] [address], [place] [address]TN CA Ox CrystalPresentAbnMcCullough-Hyde Memorial Hospital Comment on above:Order Comment: Added by Monroe ExpertPerformed By: #### [id number] #### [facility] [address], [place] [address]WX MucousTraceNormalNegMain Campus Medical CenterComment on above:Order Comment: Added by Monroe ExpertPerformed By: #### [id number] #### [facility] [address], [place] [address]IG FZL0-21Lzqfhdlr7-1Fhumyl [facility] And HospitalComment on above:Order Comment: Added by Monroe ExpertPerformed By: #### [id number] #### [facility] [address], [place] [address]DU WBC>97Fcrjhqnd9-6Gpflhw [facility] And HospitalComment on above:Order Comment: Added by Discern ExpertPerformed By: #### [id number] #### [facility] [address], [place] [address]DQ with Cult Rflx SPon [id number] Spec DescFoleyNormalFishmichelle [facility] And HospitalComment on above:Performed By: #### [id number] #### [facility] [address], [place] [address]YHZwk [id number] [address] [address] Cardiac Rehab Report Signed Patient: MANOLO ROCHE MR#: [id number] : 1935 Acct:[id number] Age/Sex: 89 / M ADM Date: 05/10/25 Loc: CR Attending Dr: Anat Perez M.D. Ordering Physician: Marito Jimenez M.D. Date of Service: 05/10/25 Procedure(s): ITP Accession Number(s): [id number] cc: [facility] Test Date: 2025-05-10 Pat Name: MANOLO ROCHE Department: Room: - Gender: Male X Ray Technician: : 1935 Requested By: MARITO JIMENEZ Order Number: [id number] Reading MD: CHUCK ROACH M.D. Interpretive Statements Patient may start cardiac rehab as outlined in the treatment plan. Electronically Signed On 05-10-2025 15:43:30 EDT by CHUCK ROACH M.D. Dictated By: CHUCK ROACH Signed By: 05/10/25 1544 05/10/25 1544 DD/ 1433 TD/TT: Lead Mechanical Engineer:TBHRadiology, Radiologist, - 05/10/[address] [address] Cardiac Rehab Report Signed Patient: MANOLO ROCHE MR#: [id number] : 1935 Acct:[id number] Age/Sex: 89 / M ADM Date: 05/10/25 Loc: CR Attending Dr: Anat Perez M.D. Ordering Physician: Marito Jimenez M.D. Date of Service: 05/10/25 Procedure(s): ITP Accession Number(s): [id number] cc: [facility] Test Date: 2025-05-10 Pat Name: MANOLO ROCHE Department: Room: - Gender: Male X Ray Technician: : 1935 Requested By: MARITO JIMENEZ Order Number: [id number] Vu MD: CHUCK ROACH M.D. Interpretive Statements Patient may start cardiac rehab as outlined in the treatment plan. Electronically Signed On 05-10-2025 15:43:30 EDT by CHUCK ROACH M.D. Dictated By: CHUCK ROACH Signed By: 05/10/25 1544 05/10/25 1544 DD/ 1433 TD/TT: Lead Mechanical Engineer: NETO HealthcareRadiology Study observation (narrative)[facility] HealthcareITPOrdered By: Radiologist Radiology on [id number] [employer] Work Phone: ITPon [phone] [address] Cardiac Rehab Report Signed Patient: MANOLO ROCHE MR#: [id number] : 1935 Acct:[id number] Age/Sex: 89 / M ADM Date: 05/07/25 Loc: CR Attending Dr: Anat Perez M.D. Ordering Physician: CHUCK ROACH Date of Service: 05/08/25 Procedure(s): ITP Accession Number(s): [id number] cc: [facility] Test Date: 2025-05-08 Pat Name: MANOLO ROCHE Department: Room: - Gender: Male X Ray Technician: : 1935 Requested By: CHUCK ROACH M.D. Order Number: [id number] Vu MD: CHUCK ROACH M.D. Interpretive Statements Patient may start cardiac rehab as outlined in the treatment plan. Electronically Signed On 05-08-2025 19:06:51 EDT by CHUCK ROACH M.D. Dictated By: CHUCK ROACH Signed By: 05/08/25190605/08/251906 DD/ 08 TD/TT: Lead Mechanical Engineer:Iris Hartley MD - 05/08/2025 [place] [address] Cardiac Rehab Report Signed Patient: MANOLO ROCHE MR#: [id number] : 1935 Acct:[id number] Age/Sex: 89 / M ADM Date: 05/07/25 Loc: CR Attending Dr: Anat Perez M.D. Ordering Physician: CHUCK ROACH Date of Service: 05/08/25 Procedure(s): ITP Accession Number(s): [id number] cc: [facility] Test Date: 2025-05-08 Pat Name: MANOLO ROCHE Department: Room: - Gender: Male X Ray Technician: : 1935 Requested By: CHUCK ROACH M.D. Order Number: [id number] Reading MD: CHUCK ROACH M.D. Interpretive Statements Patient may start cardiac rehab as outlined in the treatment plan. Electronically Signed On 05-08-2025 19:06:51 EDT by CHUCK ROACH M.D. Dictated By: CHUCK ROACH Signed By: 05/08/25190605/08/251906 DD/ 08 TD/TT: Lead Mechanical Engineer: NETO HealthcareRadiology Study observation (narrative)[facility] HealthcareITPOrdered By: Radiologist Radiology on [id number] Work Phone: cNOVon [phone] Visit (ENDOLN) MANOLO ROCHE ([id number]) 1935 M Date Time Provider Department 05/03/25 11:00 AM AYANA ZAVALA During your visit today, we recorded the following information about you: Pulse Blood pressure Weight 60/minute 118/73 62.5 kg Miguel A Goodwin MA 05/03/2025 12:25 PM Signed Ayana Zavala APRN.KALANI 05/03/2025 12:25 PM Signed Endocrinology Follow Up History of Present Illness Manolo Roche is a 89 year old male presents today for follow up of DM Type 1. Here with . At [facility] 03/2025, patient was transitioned from Omnipod to subcutaneous insulin injections due to concerns for safety while on the pump. He was subsequently admitted for hyperglycemia after BG was noted to be >700 on labs. Was discharged to SNF and returned home yesterday. Per SNF records, patient was on 20 units of Basaglar daily. No note of prandial insulin on SNF med list but patient reports they were giving him insulin with food the time he was there. He didn't see note for 20 units of Basaglar on list and saw 3 mL (for pen size) and took only 3 units of Lantus last night for this reason. Blood sugar is elevated today. He took only 4 units of Novolog with breakfast and no sliding scale. is waking him up around 9 am to have breakfast as otherwise he will stay in bed late and Novolog doses are too close together later in the evening. He gets busy and may not eat lunch until 2 pm. Then they may have dinner around 7 pm. They are aware to separate Novolog by at least 4 hours to prevent stacking. Current regimen: Lantus 20 units daily Novolog 4 units with meals + sliding scale If Blood Glucose (mg/dL) is <150 Give 0 extra units 151-200 Give 1 extra unit 201-250 Give 2 extra units 251-300 Give 3 extra units 301-350 Give 4 extra units 351-400 Give 5 extra units >400 Give 6 extra units Seeing urology for urinary retention and is now utilizing a catheter. 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 Per patient, this was done due to [...] Omnipod DASH to Omnipod 5 on 09/04/24. He has continued to have issues with obtaining his supplies. He has been off his pump for a few days afternoon as pharmacy could not fill as they keep falling off. He has not taken Lantus and is using Novolog only instead. admits he is not using Novolog consistently. recalls he is not bolusing consistently and will ignore his Omnipod alarms at times. Date of Diagnosis: 2019 HbA1c: Hemoglobin A1C (%) Date Value 04/09/2025 12.8 Hemoglobin A1C (POCT) (%) Date Value 10/26/2024 12.0 07/06/2024 10.1 Family history of diabetes includes none. Complications Microvascular: none Macrovascular: CAD s/p PCI Comorbidities: HTN, COPD, CAD, CHF, ICM, BPH, IPMN, pancreatitis Health Maintenance Topics Topic Date Due Dilated Retinal Exam Never done Diabetic Foot Exam Never done Prior DM Medications: Jardiance- stopped by cardiology Current DM Related Medications: Current Medications 05/03/2025 DIABETES THERAPIES Medication Dosage Pharm Subclass insulin aspart U-100 (NOVOLOG FLEXPEN U-100 INSULIN) 100 unit/mL (3 mL) pen Inject 4 units with meals plus sliding scale (Max daily dose of 30 units daily) Insulin Analogs - Rapid Acting insulin aspart U-100 (NOVOLOG U-100 INSULIN ASPART) 100 unit/mL ADMINISTER PER PUMP (MAX DAILY 75 UNITS) Insulin Analogs - Rapid Acting insulin glargine (LANTUS SOLOSTAR U-100 INSULIN) 100 unit/mL (3 mL) Inject 12 Units subcutaneously daily at bedtime. Insulin Analogs - Long Acting CARDIOVASCULAR Medication [...] Take 25 mg by mouth once daily. Di (more content not included)...NormalSouthwest General Health Centeron [id number] (ENDOLN) MANOLO ROCHE ([id number]) 1935 M Date Time Provider Department 05/03/25 AYANA ZAVALA ENDOLN During your visit today, we recorded the following information about you: Miguel A Goodwin MA 05/03/2025 8:43 AM Signed Attempted to reach patients as a reminder that patient has a 10 am appointment with Marc our health educator and an appointment at 11 a.m. with Ayana. Also left detailed message that we wanted to know if he has been checking his blood glucose and if so to please bring those to todays appointment. Allergies As of Date: 05/03/2025 (No Known Allergies) Date Reviewed: 04/09/2025 Reviewed by: Ayana Zavala APRN.UTILITY SYSTEM OPERATOR - Fully Assessed Reason for Visit: Patient Question [1545] Cmt: Glucose readings Prescriptions as of 05/03/2025 - insulin glargine (LANTUS SOLOSTAR U-100 INSULIN) 100 unit/mL (3 mL) Inject 12 Units subcutaneously daily at bedtime. - insulin aspart U-100 (NOVOLOG FLEXPEN U-100 INSULIN) 100 unit/mL (3 mL) pen Inject 4 units with meals plus sliding scale (Max daily dose of 30 units daily) - Insulin Molino, Disposable, (BD ULTRA-FINE MARICHUY PEN NEEDLE) 32 [...] Inject 1 mg subcutaneously as needed. - istqmc-kiabctrj-yszxlfc (CREON) 24,000-76,000 -120,000 unit cpDR Take 2 [...] once daily. Problem List As Of Date 05/03/2025 Noted Resolved IPMN (intraductal papillary mucinous neoplasm) *06/23/2018 Encounter Status:Closed by MIGUEL A GOODWIN on 05/03/25NoMercy Health Clermont HospitalCNPNTelephone (ENDOLN) MANOLO ROCHE ([id number]) 1935 M Date Time Provider Department 05/03/25 AYANA ZAVALA During your visit today, we recorded the following information about you: Miguel A Goodwin MA 05/03/2025 3:12 PM Signed Received a fax from [facility] of patients current medication list as well as glucose readings. Ayana reviewed then requested to send for scan. Allergies As of Date: 05/03/2025 (No Known Allergies) Date Reviewed: 05/03/2025 Reviewed by: Ayana Zavala APRN.UTILITY SYSTEM OPERATOR - Fully Assessed Reason for Visit: Patient Update [1234] Cmt: [facility]- Medication update and glucose readings Prescriptions as of 05/03/2025 - insulin glargine (LANTUS SOLOSTAR U-100 INSULIN) 100 unit/mL (3 mL) Inject 15 Units subcutaneously daily at bedtime. - insulin aspart U-100 (NOVOLOG FLEXPEN U-100 INSULIN) 100 unit/mL (3 mL) pen Inject 4 units with meals plus sliding scale (Max daily dose of 30 units daily) - Insulin Molino, Disposable, (BD ULTRA-FINE MARICHUY PEN NEEDLE) 32 gauge x 5/32 Use four times daily with insulin pens - Blood-Glucose Sensor (2[employer] Online G7 SENSOR) delfin Change every 10 days. - insulin aspart U-100 (NOVOLOG U-100 INSULIN [...] Inject 1 mg subcutaneously as needed. - zrrmwq-obgpmcez-bxbgeex (CREON) 24,000-76,000 -120,000 unit cpDR Take 2 [...] once daily. Problem List As Of Date 05/03/2025 Noted Resolved IPMN (intraductal papillary mucinous neoplasm) *06/23/2018 Encounter Status:Closed by MIGUEL A GOODWIN on 05/03/25[facility] CenterAmbulatory Visit Summaryon [id number] Visit SummaryAmbulatory Visit Summary MANOLO ROCHE :1935 Visit Date:04/25/2025 Ambulatory Visit Instructions Your Diagnosis Urinary retention, Incomplete bladder emptying Benign prostatic hyperplasia Hydronephrosis Screening PSA (prostate specific antigen) Your Care Team Attending Physician - Tristan MELCHOR MD Primary Care Physician - SALVADOR NARANJO DO This Is Your Medications List Contact prescribing physician if questions or concerns aspirin (aspirin 81 mg oral capsule) atorvastatin (atorvastatin 40 mg Tab) ergocalciferol (Vitamin D) hydrochlorothiazide-metoprolol (hydrochlorothiazide-metoprolol 12.5 mg-25 mg oral tablet, extended release) insulin aspart (NovoLOG FlexPen 100 units/mL injectable solution) insulin glargine (Lantus Solostar Pen 100 units/mL subcutaneous solution) multivitamin (Multi Vitamins oral tablet) pancrelipase (Creon 24,000 units oral delayed release capsule) paroxetine (paroxetine 40 mg Tab) Procedures Performed Appendectomy, Cardiac pacemaker, Cataract extraction, H/O splenectomy, Pancreatectomy, Placement ofstent in cardiac conduit, Tonsillectomy. Discharge Vitals Heart Rate (Peripheral) 61 Blood Pressure 93/40 Height 177 cm Height 70 in Weight 61.5 kg Weight 135.584 lb BMI 19.63 What to do next Scheduled Follow-Up Appointments Wednesday 1:00 PM EST Where: [facility] 2024 10:00 AM EST Where: [facility] 2024 11:00 AM EST Where: [facility] You Need to Schedule the Following Appointments Follow Up with JULIO OGLESBY, AARON Jordan When: Comments: Pending Cysto/bladder function testing Where: [address] [place] [id number]- Medications What How Much When Instructions Unchanged aspirin (aspirin 81 mg oral capsule) Every 24 hours Contact prescribing physician if questions or concerns Unchanged atorvastatin (atorvastatin 40 mg Tab) Contact prescribing physician if questions or concerns Unchanged ergocalciferol (Vitamin D) Every week Contact prescribing physician if questions or concerns Unchanged hydrochlorothiazide-metoprolol (hydrochlorothiazide-metoprolol 12.5 mg-25 mg oral tablet,extended release) Contact prescribing physician if questions or concerns Unchanged insulin aspart (NovoLOG FlexPen 100 units/ mL injectable solution) Contact prescribing physician if questions or concerns Unchanged insulin glargine (Lantus Solostar Pen 100 units/ mL subcutaneous solution) Contact prescribing physician if questions or concerns Unchanged multivitamin (Multi Vitamins oral tablet) Every day Contact prescribing physician if questions or concerns Unchanged pancrelipase (Creon 24,000 units oral delayed release capsule) Contact prescribing physician if questions or concerns Unchanged paroxetine (paroxetine 40 mg Tab) Contact prescribing physician if questions or concerns Allergies No Known Allergies (Unknown) Problems Ongoing - Any problem that you are currently receiving treatment for. Acute kidney injury Anemia Arteriosclerotic vascular disease Lewis's esophagus Benign prostatic hyperplasia Bilateral pneumonia Bradycardia Carpal tunnel syndrome Chronic kidney disease Deficiency of macronutrients Dyslipidemia Essential hypertension Gastric ulcer Hydronephrosis Incomplete bladder emptying Iron deficiency Myocardial infarction Osteoporosis Screening PSA (prostate specific antigen) Urinary retention Historical - Any problem that you are no longer receiving treatment for. Benign neoplasm of pancreas Diabetes mellitus Patient Survey You may receive a survey via text or e-mail asking about your office visit. Please share your experience with us by completing your survey. We appreciate your feedback and thank you for choosing us for your care. Patient Portal You may access all of your results and other medical record information on our secure patient portal. If you are not signed up for this yet, please contact [employer] at [phone] to get signed up today. Language Information Language assistance services are available as needed. [facility] Office/Clinic Noteon [id number] Office/Clinic NoteUrology Office/Clinic Note Chief Complaint new patient HPI Staff 89 year old male [facility] F/U and Urology consult 04/10/25 for Urinary retention of about 700cc, Foleywas placed. Bilateral hydronephrosis on imaging. Pt. taking Flomax 0.4mg qd PSA 04/10/25 - 0.6 & 30.0% patient denies any issues with catheter, states its draining well. Denies any gross hematuria. History of Present Illness Tests reviewed: reviewed UA, referral records I have reviewed the previous health record information and history for this patient from external providers. I have reviewed and verified the staff HPI to be accurate for this encounter. Review of Systems PHQ Score Initial Depression Screen Score: 0 SCORE ROS - Provider Constitutional: denies weight loss, denies hot flashes. Eyes: denies eye problems. Gastrointestinal: denies nausea, denies vomiting. Cardiovascular: denies chest pain or angina. Integumentary: no dryness Musculoskeletal: denies musculoskeletal symptoms. ENMT: denies otolaryngeal symptoms. Respiratory: no shortness of breath. Heme/Lymph: denies easy bleeding tendency, denies easy bruising tendency. Psychiatric: no confusion, no anxiety. Genitourinary: See HPI. Physical Exam Vitals & Measurements HR: 61(Peripheral) BP: 93/40 HT: 70 in HT: 177 cm WT: 61.5 kg WT: 135.584 lb BMI: 19.63 General Appearance: alert, no distress, well nourished, well developed male. Assessment/Plan Manolo is a 89 yo M here for [facility] f/u for urinary retention. 1. Urinary retention, (R33.9: Retention of urine, unspecified)Incomplete bladder emptying Seen at [facility] 04/10/25 for urinary retention of 700 cc, BL hydro Urology consulted, Chase placed. 04/10/25 - BUN 74, Cr 2.38, eGFR 26 04/13/25 - BUN 47, Cr 1.47, eGFR 45 Denies issues with cath, draining well. Denies gross hematuria. Discussed next steps which include Cysto and bladder function testing. -Will schedule Cysto. The risks and benefits for cystoscopy have been discussed. The risks include bleeding, infection, and irritation of the bladder and urinary channel, among others. The patient, after being informed of procedural details and after questions have been answered, wishes to proceed.Full informed consent has been obtained. Will order Local anesthesia. -Urodynamics 2. Benign prostatic hyperplasia (N40.0: Benign prostatic hyperplasia without lower urinary tract symptoms) Taking Flomax 0.4qd. See #1 3. Hydronephrosis (N13.30: Unspecified hydronephrosis) See #1. 4. Screening PSA (prostate specific antigen) (Z12.5: Encounter for screening for malignant neoplasmof prostate) PSA 04/10/25 - 0.6 & 30.0% -Cont monitoring The patient is here with his today. He was seen in consultation at the [facility] for significant urinary retention of about 700 cc associated with bilateral hydronephrosis and DENISHA. Chase catheter indwelling. Repeat labs did demonstrate an improvement in his GFR up to about 45. At this point secondary to his known diabetes, my recommendation is for cystoscopy and a complex multichannel urodynamics to determine the presence or absence of a positive pressure flow study and overall bladder function. I did give them the BPH pathway sheet which describes many procedural interventions. He is 89 years of age with multiple comorbidities which may have a bearing on any procedural choices. They agree with the plan. Antibiotic prophylaxis to be sent to pharmacy. Follow-up With When Contact Information JULIO OGLESBY, Tristan Interiano, URL [address] [place] [id number]- Additional Instructions: Pending Cysto/bladder function testing Patient Education I, Collette Phillips, personally scribed for Dr. Melchor on 04/25/2025 15:13:38. . Documentation recorded by the scribe, Collette Phillips, accurately reflects the services(s) I performed and decisions made by me. Authenticated by Dr. Melhcor on 04/25/2025 15:15:06. Portions of this record may have been created with voice recognition artificial intelligence software, specifically [employer], [employer] and or frestyl. Substitutions may have occurred due to the inherent limitations of voice recognition and artificial intelligence software. Problem List/Past Medical History Ongoing Acute kidney injury Anemia Arteriosclerotic vascular disease Lewis's esophagus Benign prostatic hyperplasia Bilateral pneumonia Bradycardia Carpal tunnel syndrome Chronic kidney disease Deficiency of macronutrients Dyslipidemia Essential hypertension Gastric ulcer Hydronephrosis Incomplete bladder emptying Iron deficiency Myocardial infarction Osteoporosis Screening PSA (prostate specific antigen) Urinary retention Historical Benign neoplasm of pancreas Diabetes mellitus Procedure/Surgical History Appendectomy, Cardiac pacemaker, Cataract extraction, H/O (more content not included)...[facility] HospitalComment on above:Result Comment: Electronically Signed By: Quyen Melchor\.br\Date and Time Signed: 04/25/25 15:24 EDTCNPHaley [id number] (ENDOLN) MANOLO ROCHE ([id number]) 1935 M Date Time Provider Department 04/23/25 IVELISSE LEGGETT During your visit today, we recorded the following information about you: Yanique Griffin, KARIN 04/23/2025 9:18 AM Signed Pt is identified by name and birthdate: Yes Patient's Spouse calls, states after seeing Provider 04/09 she was called by Lab and she took spouse to ED 04/10 - Present Visit Diagnoses Hypertensive disorder Hyperglycemia due to diabetes mellitus Hydronephrosis Acute renal failure syndrome Raised cardiac enzyme or marker Patient is currently at [facility] [phone] Spouse states they are not controlling his BS well. Advised Provider doesn't have charge of care as he is admitted to [facility] and she must reach out to Provider there Spouse Refuses and wants to speak with Provider Ayana Zavala APRN.KALANI 04/24/2025 7:50 AM Signed Please have his current med list and his blood sugar readings since discharge faxed to the office so I can review. Please call as well to notify I will review these. We do also have an appt next week 05/03. Erick Peguero LPN 04/24/2025 8:27 AM Signed Attempted to reach staff at [facility]. Was transferred but then no answer. Will try again later. Erick Peguero LPN 04/24/2025 3:59 PM Signed Spoke to Yvan FRAZIER, He will fax over requested blood sugar readings and current med list to our office. Patient's notiifed Allergies As of Date: 04/23/2025 (No Known Allergies) Date Reviewed: 04/09/2025 Reviewed by: Ayana Zavala APRN.KALANI - Fully Assessed Reason for Visit: Patient Update [1234] Learning Engineer - Other [[id number]] Prescriptions as of 04/24/2025 - insulin glargine (LANTUS SOLOSTAR U-100 INSULIN) 100 unit/mL (3 mL) Inject 12 Units subcutaneously daily at bedtime. - insulin aspart U-100 (NOVOLOG FLEXPEN U-100 INSULIN) 100 unit/mL (3 mL) pen Inject 4 units with meals plus sliding scale (Max daily dose of 30 units daily) - Insulin Molino, Disposable, (BD ULTRA-FINE MARICHUY PEN NEEDLE) 32 gauge x 5/32 Use four times daily with insulin pens - Blood-Glucose Sensor (2CODE Online G7 SENSOR) delfin Change every 10 days. [...] Inject 1 mg subcutaneously as needed. - zdrgrv-tbqkwoew-lvacsjt (CREON) 24,000-76,000 -120,000 unit cpDR Take 2 [...] once daily. Problem List As Of Date 04/23/2025 Noted Resolved IPMN (intraductal papillary mucinous neoplasm) *06/23/2018 Encounter Status:Closed by AYANA ZAVALA on 04/24/25NormalCSCCI Hospital Lima peptide SerPl-mCncon 04-09-2025 peptide [Mass/Vol]<0.1Low1.1-4.4 [facility] on above:Order Comment: Specimen Type: BLOOD SPECIMENOrdering Facility: [facility] Address:[address] [place], [place] [id number] By: #### 1986-9 ####[facility] LABCLIA [id number] [address] [place], [place] [address] [place] OF WHITE HOSPITALCC GLUCOSE P FAST SERPL-GEISINGER ST. LUKE'S HOSPITALon 94-71-2340Kzbhoyw [Mass/Vol]751 mg/dLHigh 74 - 99 mg/dLPike County Memorial HospitalComment on above:[place] Diabetes Association guidelines state that a diabetes mellitus diagnosis is preliminarily made when the fasting plasma glucose meets or exceeds 126 mg/dL. In the absence of unequivocal hyperglycemia, results should be confirmed with repeat testing. Patients are at increased risk for diabetes mellitus (prediabetes) when the fasting glucose is 100 to 125 mg/dL.Interpretation and review of laboratory resultsAbnormalPike County Memorial HospitalSpecimen Type: BLOOD SPECIMEN [facility] Address: [address] [place] [id number] Original Ordering Provider: AYANA LAKHANI [facility] [id number] Visit (ENDOLN) KALEYMANOLO ([id number]) 1935 M Date Time Provider Department 04/09/25 2:00 PM AYANA ZAVALA ENDOLN During your visit today, we recorded the following information about you: Pulse Blood pressure Weight 60/minute 162/86 62.9 kg Ayana Zavala APRN.UTILITY SYSTEM OPERATOR 04/10/2025 8:17 AM Addendum Endocrinology Follow Up History of Present Illness Manolo Roche is a 89 year old male presents today for follow up of DM Type 1. Here with . At [facility] 10/2024, basal rate was reduced overnight. [...] or vomiting. He was called from his hr operations advisor's office a few weeks ago after receiving labwork and BG was >500. Labwork from this AM is pending. recalls he is not bolusing consistently and will ignore his Omnipod alarms at times. Patient recalls being consistent with his Novolog and Lantus injections when he was on these. 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 Per patient, this was done due to [...] OTHER Medication Dosage Pharm Subclass Blood-Glucose Sensor (2CODE Online G7 SENSOR) delfin Change every 10 days. [...] to treat Hypoglycemia (Hyperg (more content not included)...NormalMercy Health St. Anne HospitalGAD65 Ab Ser-aCncon 04-09-2025 Glutamate decarboxylase 65 Ab Qn (S)<5.0Normal<=5.0[facility] Comment on above:Order Comment: Specimen Type: BLOOD SPECIMENOrdering Facility: [facility] Address:[address], [place] [address]Dnkhuw Comment: Anti-glutamic acid decarboxylase antibody (GAD65) test usually in conjunction with another test such as IA-2 antibody is used as an aid in establishing the autoimmune nature of previously-diagnosed type I diabetes mellitus or in predicting of progression to type I diabetes mellitus in patients with certain autoimmune diseases including autoimmune gastritis among others. It is alsoused as an aid in diagnosis of stiff person syndrome and certain autoimmune nervous system diseases. Clinical correlation is required.Performed By: #### 00857-3 ####[facility] [id number] [place] [address] [place] AMERICAGlucose p fast SerPl-ncon 24-74-0306Tumyxtu post fast [Mass/Vol]751 mg/hNToyb49-72JasaufzluMercy Health St. Anne HospitalComment on above:Order Comment: Specimen Type: BLOOD SPECIMENOrdering Facility: [facility] Address:[address] [place], [place] [address]Result Comment: [place] Diabetes Association guidelines state that a diabetes mellitus diagnosis is preliminarily made when the fasting plasma glucose meets or exceeds 126 mg/dL. In the absence of unequivocal hyperglycemia, results should be confirmed with repeat testing. Patients are at increasedrisk for diabetes mellitus (prediabetes) when the fasting glucose is 100 to 125 mg/dL.Performed By: #### 1558-6 ####[facility] [id number] [place] [address] [place] AMERICAGlutamate decarboxylase 65 Ab Qn (S)on 60-44-3788ZGLIBICY ACID DECARBOXYLAS AB QUALITATIVENegativeNormalNegativeMercy Health St. Anne Hospital Comment on above:Order Comment: Specimen Type: BLOOD SPECIMENOrdering Facility: [facility] Address:[address] [place] [address] Performed By: #### 67204-6 ####[facility] [id number] [address] [place] HbA1c (Bld)on 55-39-6312Hizbqqm glucose Estimated from glycated hemoglobin (Bld) [Mass/Vol]321 mg/dLNormalCSelect Medical [facility] on above:Order Comment: Specimen Type: BLOOD SPECIMENOrdering Facility: [facility] Address:[address] [place], [place] [address]Result Comment: eAG: (Estimated average glucose) is a calculated value from HgbA1c and is representa tive of the average blood glucose level in the last 2-3 month period.Performed By: #### 81970-4 ####[facility] LABIA [id number] [place] [address] [place] BUIVPZLRfP9x (Bld) [Mass fraction]12.8 %High4.3-5.6ClevelCaroMont Regional Medical Center - Mount HollyComment on above:Order Comment: Specimen Type: BLOOD SPECIMENOrdering Facility: [facility] Address:[address] [place], [place] [address]Result Comment: [place] Diabetes Association guidelines indicate that patients with HgbA1c in the range 5.7-6.4% are at increased risk for development of diabetes, and intervention by lifestyle modification may be beneficial. HgbA1c greater or equal to 6.5% is considered diagnostic of diabetes.Performed By: #### 10185-3 ####[facility] LABIA [id number] [place] [address] [place] OF WHITE HOSPITALALL PRO BNPon 93-86-7626IL PRO B TYPE NATRIURETIC [id number] pg/mLCritically highNINF - 1800.0 pg/mLNOMS HealthcareComment on above: RESULTS CALLED TO JOEY GARCES CMP (CMP) (FOR REMOTE [facility] USE)on 11-41-1643Tnbclfa [Mass/Vol]3.2 g/dLLow3.4 - 5.0 g/dLNOMS HealthcareALBUMIN GLOBULIN RATIO0.9NOMS HealthcareALP [Catalytic activity/Vol]207 U/LHigh46 - 116 U/LNOMS HealthcareALT [Catalytic activity/Vol]112 U/LHigh16 - 63 U/LNOMS HealthcareAnion gap [Moles/Vol]11.7 mmol/LNOMS HealthcareAST [Catalytic activity/Vol]196 U/LHigh15 - 37 U/LNOMS HealthcareBilirubin [Mass/Vol]0.5 mg/dL 0.2 - 1.0 mg/dLNOMS HealthcareCalcium [Mass/Vol]8.2 mg/dLLow8.5 - 10.1 mg/dLNOMS HealthcareChloride [Moles/Vol]93 mmol/LLow98 - 107 mmol/LNOMS HealthcareCO2 [Moles/Vol]29 mmol/L21.0 - 32.0 mmol/LNOMS HealthcareCreatinine [Mass/Vol]2.48 mg/dLHigh0.70 - 1.30 mg/dLNOMS HealthcareGFR/1.73 sq M.predicted CKD-EPI (S/P/Bld) [Vol rate/Area]30Low>=60 mL/min/1.73m 2NOMS HealthcareGlobulin (S) [Mass/Vol]3.7 g/dLNOND HealthcareGlucose [Mass/Vol]581 mg/dLCritically high74 - 106 mg/dLMOAB REGIONAL HOSPITAL HealthcareComment on above:RESULTS CALLED TO ZENAIDA SANDOVAL, RN Potassium [Moles/Vol]4.7 mmol/L3.5 - 5.1 mmol/LNOMS HealthcareProtein [Mass/Vol] 6.9 g/dL6.4 - 8.2 g/dLNOND HealthcareSodium [Moles/Vol]129 mmol/WKry411 - 145 mmol/LNOMS HealthcareTBH EGFR-NON AF LWGDJTWU58Cbh>=60 mL/min/1.73m 2NOMS HealthcareUrea nitrogen [Mass/Vol]73 mg/dLHigh7.0 - 18.0 mg/dLNOND Healthcare Urea nitrogen/Creatinine [Mass ratio]29.4 mg/mgNOND HealthcareNo Panel Informationon 70-67-5603Tkmtjwnnocsjus and review of laboratory resultsAbnoMeadville Medical CenterCLINISNorthcrest Medical CenterGLUTAMIC AC DECARBOXYLASE ABOrdered By: Erick Peguero on 84-03-1119Qmtzustzu decarboxylase 65 Ab Qn (S)-5.0AbnoKing's Daughters Medical Center OhioR HEMOGLOBIN A1Con 67-34-3409Wtmpava [Mass/Vol]269 mg/dLNOResearch Belton HospitalCxkepbykczGvB5u (Bld) [Mass fraction]11 %High4.5 - 6.2 %P[facility] County Memorial HospitalComment on above:ADA RECOMMENDED LIMIT 4.0 - 6.0 ADA THERAPEUTIC TARGET < 7.0 ACTION SUGGESTED > 7.0 Interpretation and review of laboratory resultsAbnormKindred Hospital PhiladelphiaCLINISYNColleton Medical CenterNo Panel Informationon 95-23-0291Yycukhbszyssmj and review of laboratory resultsAbnormMayo Clinic Health System– NorthlandTB GLUCOSE BLOODon 21-64-9165Nuwxxgd [Mass/Vol]141 mg/wGLqxw14 - 106 mg/dLTsaile Health Center Issa 72-85-7520TZOEIzbomgwyr (ENDOLN) MANOLO ROCHE ([id number]) 1935 M Date Time Provider Department 02/05/25 AYANA ZAVALA ENDOLN During your visit today, we recorded the following information about you: Ayana Zavala APRN.CNP 02/05/2025 11:17 AM Signed Medicare [...] Buffy Roche MA 02/15/2025 10:09 AM Signed [employer] Part B Insulin RX form completed and faxed Confirmation received Allergies As of Date: 02/05/2025 (No Known Allergies) Date Reviewed: 10/26/2024 Reviewed by: Ayana Zavala APRN.CNP - Fully Assessed Reason for Visit: [facility] form [Other] Primary Visit Diagnosis: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 - lzndcr-xxbghdci-zhicaey (CREON) 24,000-76,000 -120,000 unit cpDR Take 2 [...] *06/23/2018 Encounter Status:Closed by AYANA ZAVALA on 02/05/25NoMercy Health – The [facility] Hospital ANGIOGRAM CHESTon 57-85-5626ZN ANGIOGRAM CHESTCLINICAL HISTORY: Chest pain. Technique: Spiral CTA acquisition [...] No pleural effusion. No pneumothorax. No suspicious pulmon rae nodules, within limits of motion. No suspicious pulm Thoracic inlet, heart, and mediastinum: Visualized thyroid unremarkable. No axillary, mediastinal, or hilar lymphadenopathy. Moderate thoracic aorta atherosclerotic calcifications without aneurysm. Cardiomegaly. Coronary calcifications and/or stents. Left-sided ICD. No pericardial effusion or thicke nurys. Esophagus nondilated. Bones: No acute osseous findings. [...] bilateral hydronephrosis. ELECTRONICALLY SIGNED BY: Howard Mae MDNormalNot AvailableCreatinineon 29-67-5288Lnevaiwpvl [Mass/Vol]1.21 mg/dL0.76 - 1.27 mg/dLPike County Memorial Hospital Creatinine [Mass/Vol]on 49-24-2967JVG/1.73 sq M.predicted among non-blacks MDRD (S/P/Bld) [Vol rate/Area]58 mL/min/{1.73_m2}Low59 - PINF mL/min/1.73Pike County Memorial HospitalInterpretation and review of laboratory resultsDelaware Hospital for the Chronically Ill Performed at: - LabOz[facility] [address], [address], [place], [place] [id number] Medical Representative: Hilario Chew MD, Phone: [phone] Vernon HospitalXR CHEST 2 VIEWSon [id number] CHEST 2 VIEWSTITLE OF EXAM: XR CHEST 2 VIEWS REASON [...] electronically signed in approved by the interpreting radiologist.NormalNot AvailableXR Chest 2 Viewson [id number] OF EXAM: XR CHEST 2 VIEWS REASON [...] signed in approved by the interpreting radiologist. IMAGINGCain, D. Azeem, MD - 01/02/2025 TITLE OF EXAM: XR [...] signed in approved by the interpreting radiologist. [facility] HealthcareRadiology Study observation (narrative)[facility] HospitalXR Chest 2 ViewsOrdered By: Yuval Gill on [id number] County Memorial Hospital Work Phone: CNPNon 22-09-3053YUKAJyjqzcvfw (ENDOLN) MANOLO ROCHE ([id number]) 1935 M Date Time Provider Department 12/19/24 AYANA ZAVALA ENDOLN During your visit today, we recorded the following information about you: Sharonda Felipe 12/19/2024 12:07 PM Signed Pt needs refill on sensors. Do not see on current med list. Pt uses [facility] pharmacy in [facility]. Insurance is not going to pay for this until 01/03. Spouse is requesting to speak to a nurse about getting an alternative until then. Please review and advise. Patient has been identified by name and birthdate. Duration of symptoms: N/A Person calling: self Call patient at: on cell [phone] (cell) Was an appointment scheduled: No Closing statement: Results or non-symptom based questions: Thank you for calling [facility], your call will be returned within the next business day. Ayana Hess APRN.KALANI 12/25/2024 8:04 AM Addendum Rx sent however patient obtains typically from [facility], are they still having issues obtaining from there? Erick Peguero LPN 12/27/2024 11:08 AM Signed Spoke to pharmacy, the sensors are ready for bean picker machine operator. Relayed message to patient's . She states that they do usually receive sensors from [facility] but they are having issues receiving them. The patient uses more that prescribed and paid for by insurance because they fall out. She will bean picker machine operator those at pharmacy , if there are any further issues she will contact our office. Allergies As of Date: 12/19/2024 (No Known Allergies) Date Reviewed: 10/26/2024 Reviewed by: Ayana Zavala APRN.KALANI - Fully Assessed Reason for Visit: Refill [...] PUMP (MAX DAILY 75 UNITS) - Insulin Molino, Disposable, (BD ULTRA-FINE MARICHUY PEN NEEDLE) 32 [...] Inject 1 mg subcutaneously as needed. - jjenia-tngalnic-urftyel (CREON) 24,000-76,000 -120,000 unit cpDR Take 2 [...] ordered this encounter Disp Refills Start End 2CODE Online G7 SENSOR DEVICE 3 ea* 0 12/25/2024 Sig: Change every 10 days. Encounter Status:Closed by AYANA ZAVALA on 12/25/24[facility] [id number] Visit (ENDOLN) MANOLO ROCHE ([id number]) 1935 M Date Time Provider Department 10/26/24 12:15 PM AYANA ZAVALA During your visit today, we recorded the following information about you: Pulse Blood pressure Weight Height 60/minute 163/80 61 kg 1.778 m Ayana Zavala APRN.UTILITY SYSTEM OPERATOR 10/26/2024 1:11 PM Signed Endocrinology Follow Up History of Present Illness Manolo Roche is a 89 year old male presents today for follow up of DM Type 1. Here with . 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 Per patient, this was done due to [...] mg subcutaneously as n (more content not included)...NormalMercy Health St. Anne HospitalHEMOGLOBIN A1C (POC)on 35-10-9278UyA5t (Bld) [Mass fraction]12 % Abnormal4.3 - 5.6 %Holzer HospitalComment on above:Location:[facility], [address] [place] [address], [facility] Point of care (POC) Hemoglobin A1c (HGBA1C) [...] specific diabetes management situations: The POC device glassware verifier provides a normal range of 4.2% to 6.5% for the HGBA1C POC test. However, the [place] Diabetes Association guidelines indicate that patients with [...] cell lifespan. Interpretation and review of laboratory resultsAbnormalClevelOnslow Memorial Hospital ClinicALL BASIC METABOLIC PANELon 01-86-1872Cqjjj gap [Moles/Vol]12.4 mmol/LNOMS HealthcareCalcium [Mass/Vol]8.2 mg/dLLow8.5 - 10.1 mg/dLNOMS HealthcareChloride [Moles/Vol]101 mmol/L98 - 107 mmol/LNOMS HealthcareCO2 [Moles/Vol]27.9 mmol/L 21.0 - 32.0 mmol/LNOMS HealthcareCreatinine [Mass/Vol]1.41 mg/dLHigh0.70 - 1.30 mg/dLNOMS HealthcareGFR/1.73 sq M.predicted CKD-EPI (S/P/Bld) [Vol rate/Area]58 Low>=60 mL/min/1.73m 2NOMS HealthcareGlucose [Mass/Vol]355 mg/xTAoal67 - 106 mg/dLNOMS HealthcarePotassium [Moles/Vol]4.3 mmol/L3.5 - 5.1 mmol/LNOMS HealthcareSodium [Moles/Vol]137 mmol/L136 - 145 mmol/LNOMS HealthcareTBH EGFR- NON AF SWYFPSRT63Jki>=60 mL/min/1.73m 2NOMS HealthcareUrea nitrogen [Mass/Vol]31 mg/dLHigh7.0 - 18.0 mg/dLNOMS HealthcareUrea nitrogen/Creatinine [Mass ratio]22 mg/mgNOMS HealthcareALL PRO BNPon 03-28-3220RF PRO B TYPE NATRIURETIC ODKD2255 pg/mLCritically highNINF - 1800.0 pg/mLNOMS HealthcareComment on above:RESULTS CALLED TO Zenaida Sandoval RNNo Panel Informationon 88-75-2892Hgypbzvtczjjhn and review of laboratory resultsAbnormalNOMS HealthcareCLINISYNCNHILLCREST HOSPITAL CLAREMORE – CL[facility]EMORE HealthcareCNPN on [id number] (ELIZABETHBHT) MANOLO ROCHE ([id number]) 1935 M Date Time Provider Department 10/13/24 [...] Date Reviewed: 09/25/2024 Reviewed by: Ayana Zavala APRN.UTILITY SYSTEM OPERATOR - Fully Assessed Reason for Visit: Omnipod/Dexcom [...] crtg Change every 72 hours. - Insulin Molino, Disposable, (BD ULTRA-FINE MARICHUY PEN NEEDLE) 32 [...] Inject 1 mg subcutaneously as needed. - yldvto-acjambtd-neviotk (CREON) 24,000-76,000 -120,000 unit cpDR Take 2 [...] *06/23/2018 Encounter Status:Closed by GAYE MATA on 10/13/24[facility] [id number] (ENDOLN) MANOLO ROCHE ([id number]) 1935 M Date Time Provider Department 10/11/24 [...] notes attached Questions Completed Waiting for determination [facility] Prior Modeling Analyst Endocrinology and Metabolism [place] Ruchi Rhoades 10/11/2024 11:37 AM Signed Allergies As of Date: 10/11/2024 (No Known Allergies) Date Reviewed: 09/25/2024 Reviewed by: Ayana Zavala APRN.UTILITY SYSTEM OPERATOR - Fully Assessed Reason for Visit: Insurance Authorization [1223] Cmt: insulin pump cart,auto,BT,G6/7 (OMNIPOD 5 G6-G7 [...] crtg Change every 72 hours. - Insulin Molino, Disposable, (BD ULTRA-FINE MARICHUY PEN NEEDLE) 32 gauge x /32 Use [...] Inject 1 mg subcutaneously as needed. - rpwpzp-ujqgkriw-zfgdqpx (CREON) 24,000-76,000 -120,000 unit cpDR Take 2 [...] *06/23/2018 Encounter Status:Closed by AYANA ZAVALA on 10/11/24[facility] CenterCNPNTelephone (ELIZABETHBHT) MANOLO ROCHE ([id number]) 1935 M Date Time Provider Department 10/11/24 GAYE MATA During your visit today, we recorded the following information about you: Gaye Mata, RN 10/11/2024 4:23 PM Signed Patient's sent message patient had received Dexcom G7 CGM sensors from [employer] last night. Patient applied Omnipod 6 [...] Date Reviewed: 09/25/2024 Reviewed by: Ayana Zavala APRN.UTILITY SYSTEM OPERATOR - Fully Assessed Reason for Visit: Omnipod [...] crtg Change every 72 hours. - Insulin Molino, Disposable, (BD ULTRA-FINE MARICHUY PEN NEEDLE) 32 [...] Inject 1 mg subcutaneously as needed. - muapyx-qoilthxe-qtszghv (CREON) 24,000-76,000 -120,000 unit cpDR Take 2 [...] *06/23/2018 Encounter Status:Closed by GAYE MATA on 10/11/24[facility] CenterCNPNon [id number] (DEMBHT) KALEYGIOVANIMANOLO ([id number]) 1935 M Date Time Provider Department 10/10/24 GAYE MATA During your visit today, we recorded the following information about you: Gaye Mata, RN 10/10/2024 9:36 AM Signed Called and spoke with patient's . Patient called educator last week stating he has been having issues getting his Dexcom G7 CGM sensors from his DME company, [employer]. Patient states he called them a few [...] LPN 10/10/2024 3:40 PM Signed Spoke to [employer] Rep, he reported that the Dexcom supplies should be delivered today vis [employer]. Tracking nbr [id number]. According to his notes it was out for delivery at 5:48 am 10/10/2024. I attempted to reach patient at both nbrs listed, no answer. VM left with update. I will send a eLama message as well. Allergies As of Date: 10/10/2024 (No Known Allergies) Date Reviewed: 09/25/2024 Reviewed by: Ayana Zavala APRN.UTILITY SYSTEM OPERATOR - Fully Assessed Reason for Visit: Dexcom [...] crtg Change every 72 hours. - Insulin Molino, Disposable, (BD ULTRA-FINE MARICHUY PEN NEEDLE) 32 [...] Inject 1 mg subcutaneously as needed. - lwqssf-kzqvjynt-bildavq (CREON) 24,000-76,000 -120,000 unit cpDR Take 2 [...] *06/23/2018 Encounter Status:Closed by GAYE MATA on 10/10/24[facility] [id number] (ELIZBAETHLeeann) MANOLO ROCHE ([id number]) 1935 M Date Time Provider Department 10/04/24 GAYE MATA During your visit today, we recorded the following information about you: Allergies As of Date: 10/04/2024 (No Known Allergies) Date Reviewed: 09/25/2024 Reviewed by: Ayana Zavala APRN.UTILITY SYSTEM OPERATOR - Fully Assessed Reason for Visit: Omnipod [...] 5,) crtg Change every 72 hours. - zlkobi-kckzlshv-lmzccwb (CREON) 24,000-76,000 -120,000 unit cpDR Take 2 [...] *06/23/2018 Encounter Status:Closed by GAYE MATA on 10/04/24NoMercy Health Clermont HospitalGuera (LIANNA) MANOLO ROCHE ([id number]) 1935 M Date Time Provider Department 10/04/24 GAYE MATA During your visit today, we recorded the following information about you: Gaye Mata, KARIN 10/04/2024 4:41 PM Signed Patent called stating that he is out of Cyber[employer]ender G7 CGM sensors and has been having difficulty getting the shipment from [employer], his DME supplier. Patient states he made 3 calls to them this week, one including a sawmill supervisor at [facility], who promised that the shipment was sent and would be received in a day or two. Advised patient to contact his provider's office to see if they are able to help as they submitted all the original paperwork to [facility] back in August and I am not sure if they are waiting on something from the office. Patient was also told to see if the provider's office had Dexcom G7 sensor samples to provide until his shipment arrives so he does not have to drive out to [facility]. Patient verbalized understanding. Allergies As of Date: 10/04/2024 (No Known Allergies) Date Reviewed: 09/25/2024 Reviewed by: Ayana Zavala APRN.UTILITY SYSTEM OPERATOR - Fully Assessed Reason for Visit: Dexcom [...] Inject 1 mg subcutaneously as needed. - nmhfst-rouuoafz-ewyhtox (CREON) 24,000-76,000 -120,000 unit cpDR Take 2 [...] *06/23/2018 Encounter Status:Closed by GAYE MATA on 10/04/24[facility] [id number] (DEMT) MANOLO ROCHE ([id number]) 1935 M Date Time Provider Department 09/27/24 GAYE MATA [facility] During your visit today, we recorded the following information about you: Allergies As of Date: 09/27/2024 (No Known Allergies) Date Reviewed: 09/25/2024 Reviewed by: Ayana Zavala APRN.UTILITY SYSTEM OPERATOR - Fully Assessed Reason for Visit: Omnipod [...] 5,) crtg Change every 72 hours. - xsjski-vowbvxby-wvvwaly (CREON) 24,000-76,000 -120,000 unit cpDR Take 2 [...] *06/23/2018 Encounter Status:Closed by GAYE MATA on 09/27/24NoUpper Valley Medical CenterLinwoodphone (ADVENTHEALTHT) MANOLO ROCHE ([id number]) 1935 M Date Time Provider Department 09/27/24 GAYE MATA During your visit today, we recorded the following information about you: Gaye Mata, KARIN 09/27/2024 1:23 PM Signed In error Allergies As of Date: 09/27/2024 (No Known Allergies) Date Reviewed: 09/25/2024 Reviewed by: Ayana Zavala APRN.UTILITY SYSTEM OPERATOR - Fully Assessed Prescriptions as of 09/27/2024 [...] 5,) crtg Change every 72 hours. - hyyznz-njvcceas-bthotbo (CREON) 24,000-76,000 -120,000 unit cpDR Take 2 [...] *06/23/2018 Encounter Status:Closed by GAYE MATA on 09/27/24[facility] [id number] (ENDOLN) MANOLO ROCHE ([id number]) 1935 M Date Time Provider Department 09/26/24 AYANA ZAVALA ENDOLN During your visit today, we recorded the following information about you: Ayana Zavala APRN.UTILITY SYSTEM OPERATOR 09/26/2024 7:40 AM Signed Received page regarding [...] below Stated understanding will take pt to [facility] Advised to f/u with endo upon release [...] re : HIPAA in in basics in [facility] does attend ov ( see 09-25-2024) Will document this in [facility]/ basics Erick Peguero LPN 09/26/2024 8:18 AM Signed Left message on machine to call the office. Ayana Zavala APRN.CNP 09/26/2024 11:55 AM Addendum Provided report to [facility]. Informed of BG of 614 mg/dL [...] It appears patient has been discharged from [facility] around 10:00 AM. His blood sugar has greatly improved and is at/near range per pump report today (see below). Please reach out to patient/ to see how patient is doing. I will also have Gaye (pump link trainer mechanic) reach out to them to review 1) [...] LPN 09/27/2024 5:50 PM Signed Please see EndoDexhart message 09/27/24 Allergies As of Date: 09/26/2024 (No Known Allergies) Date Reviewed: 09/25/2024 Reviewed by: Ayana Zavala APRN.UTILITY SYSTEM OPERATOR - Fully Assessed Prescriptions as of 09/27/2024 [...] 5,) crtg Change every 72 hours. - ogwlfq-anamkkpe-sjspuou (CREON) 24,000-76,000 -120,000 unit cpDR Take 2 [...] IPMN (intraductal papillary mucinous (more content not included)...Normal [facility] Anne HospitalALBUMIN/CREATININE RATIO, URINEon 13-56-3267Yyeyyek DL <= 20 mg/L (U) [Mass/Vol]20.2 mg/LNormalHighland District Hospital on above:Order Comment: Specimen Type: URINE SPECIMENOrdering Facility: [facility] Address:[address] [place], [place] [address]Performed By: #### UACR ####[facility] LABIA [id number] [address] STATES OF WHITE HOSPITALAlbumin/Creatinine (U) [Mass ratio]106 mg/gHigh<30[facility] on above:Order Comment: Specimen Type: URINE SPECIMENOrdering Facility: [facility] Address:[address] [place], [place] [address]Result Comment: Adult Male and Female Nephrotic Criteria: <30 mg/g is considered normal to mildly increased 30-300 mg/g is considered moderately increased >300 mg/g is considered severely increased KDIGO. (2013). KDIGO 2012 Clinical Practice Guideline for the Evaluation and Management of Chronic Kidney Disease. Official Journal of the International Society of Nephrology, 3(1), 1-150.Performed By: #### UACR ####[facility] LABIA [id number] [place] [id number] [place] AMERICACreatinine (U) [Mass/Vol]19.1 mg/dLLow20.0-300.0 [facility] on above:Order Comment: Specimen Type: URINE SPECIMENOrdering Facility: [facility] Address:[address] [place], [place] [address]Performed By: #### UACR ####[facility] LABCLIA [id number] [address] [address] [place] OF AMERICACNOVon 77-30-8443WRNSDvkfpm Visit (ENDOLN) MANOLO ROCHE ([id number]) 1935 M Date Time Provider Department 09/25/24 2:30 PM AYANA ZAVALA During your visit today, we recorded the following information about you: Pulse Blood pressure Weight 60/minute 162/93 63.1 kg Ayana Zavala, AMADA.UTILITY SYSTEM OPERATOR 09/26/2024 11:42 AM Addendum Endocrinology Follow Up History of Present Illness Manolo Roche is a 89 year old male presents [...] in the meantime, but 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 Per patient, this was done due to [...] by mouth once daily. Intestinal Chayo Modifiers llozaw-psdsupes-aaulisl (CREON) 24,000-76,000 -120,000 unit cpDR Take 2 capsules by mouth three times daily with meals. and 1 with snacks (8/day) Digestive Enzyme Mixtures lutein-zeaxanthin 25-5 mg cap Take by mouth once daily. Alternative Therapy - Antioxidant Omeprazole Magnesium 20 mg tablet Take 20 mg by mouth. Gastric Acid Secretion Breaker Up Machine Operator - Proton Pump Inhibitors (PPIs) PARoxetine (PAXIL) 40 mg tablet Take 40 mg by mouth every morning. Antidepressant - Selective Serotonin Reuptake Inhibitors (SSRIs) tamsulosin (more content not included)...NormalMercy Health St. Anne Hospital Comprehensive metabolic 2000 panelon 55-07-4655Esdkywx [Mass/Vol]3.9 g/dLNormal 3.9-4.9CSelect Medical [facility] on above:Order Comment: Specimen Type: BLOOD SPECIMENOrdering Facility: [facility] Address:[address] [place], [place] [address]Performed By: #### 42821-1, LIPNF ####[facility] LABCLIA [id number] [place] [address] [place] AMERICAALP [Catalytic activity/Vol]156 U/POtcs04-325AclklznvcHighland District Hospital on above:Order Comment: Specimen Type: BLOOD SPECIMENOrdering Facility: [facility] Address:[address] [place], [place] [address]Performed By: #### 25721-3, LIPNF ####[facility] LABCLIA [id number] [place] [address] [place] AMERICAALT [Catalytic activity/Vol]43 U/GEwsznb07-76LsznbgtroHighland District Hospital on above:Order Comment: Specimen Type: BLOOD SPECIMENOrdering Facility: [facility] Address:[address] [place], [place] [address]Performed By: #### 22884-7, LIPNF ####[facility] LABCLIA [id number] [address] [place] [facility] [place] Anion gap [Moles/Vol]17 mmol/LHigh8-15[facility] on above:Order Comment: Specimen Type: BLOOD SPECIMENOrdering Facility: [facility] Address:[address] [place], [place] [address]Performed By: #### 12087-8, LIPNF ####[facility] LABCLIA [id number] [place] [address] [place] AMERICAAST [Catalytic activity/Vol]76 U/UJmyo04-77VdryuoupaHighland District Hospital on above:Order Comment: Specimen Type: BLOOD SPECIMENOrdering Facility: [facility] Address:[address] [place], [place] [address]Performed By: #### 80259- 8, LIPNF ####[facility] LABCLIA [id number] [place] [address] [place] AMERICABilirubin [Mass/Vol]0.5 mg/dLNormal0.2-1.3CSelect [facility] on above:Order Comment: Specimen Type: BLOOD SPECIMENOrdering Facility: [facility] Address:[address] [place], [place] [address]Performed By: #### 49980-3, LIPNF ####[facility] LABIA [id number] [place] [address] [place] AMERICACalcium [Mass/Vol]9.3 mg/dLNormal 8.5-10.2CSelect [facility] on above:Order Comment: Specimen Type: BLOOD SPECIMENOrdering Facility: [facility] Address:[address] [place], [place] [address]Performed By: #### 56411-2, LIPNF ####[facility] LABCLIA [id number] [place] [address] [place] AMERICAChloride [Moles/Vol]86 mmol/ECrb48-923OanufwwlhHighland District Hospital on above:Order Comment: Specimen Type: BLOOD SPECIMENOrdering Facility: [facility] Address:[address] [place], [place] [address]Performed By: #### 79109-0, LIPNF ####[facility] LABIA [id number] [place] [id number] [place] AMERICACO2 [Moles/Vol]24 mmol/EBrxnyv34-44FboqmkwjxMercy Health St. Anne Hospital Comment on above:Order Comment: Specimen Type: BLOOD SPECIMENOrdering Facility: [facility] Address:[address] [place] [address] Performed By: #### 25489-5, LIPNF ####[facility] LABIA [id number] [address] [place] Creatinine [Mass/Vol]1.09 mg/dLNormal0.73-1.22[facility] on above:Order Comment: Specimen Type: BLOOD SPECIMENOrdering Facility: [facility] Address:[address] [place] [address] Performed By: #### 88306-1, LIPNF ####[facility] [id number] [address] Creatinine and Glomerular filtration rate.predicted panel (S/P/Bld)66 mL/min/1.73m???Normal>=60[facility] on above:Order Comment: Specimen Type: BLOOD SPECIMENOrdering Facility: [facility] Address:[address] [place], [place] [address]Result Comment: Estimated Glomerular Filtration Rate (eGFR) is calculated using the 2020 CKD-EPI cre atinine equation. This equation utilizes serum creatinine, sex, and age as parameters. The creatinine assay has traceable calibration to isotope dilution- mass spectrometry. Refer to KDIGO guidelines for clinical interpretation. In patients with unstable renal function, e.g. those with acute kidney injury, the eGFR may not accurately reflect actual GFR.Performed By: #### 09632-7, LIPNF ####[facility] LABCLIA [id number] [place] [address] [place] AMERICAGlucose [Mass/Vol]614 mg/dLHigh 74-99[facility] on above:Order Comment: Specimen Type: BLOOD SPECIMENOrdering Facility: [facility] Address:[address] [place], [place] [address]Result Comment: The [place] Diabetes Association (ADA) provides guidance for cutoff [...] Standards of Medical Care in Diabetes 2016, [place] Diabetes Association. Diabetes Care. 2016.39(Suppl 1).Performed By: #### 00445-4, LIPNF ####[facility] LABCLIA [id number] [place] [address] [place] AMERICAPotassium [Moles/Vol]5.2 mmol/L High3.7-5.1CSelect [facility] on above:Order Comment: Specimen Type: BLOOD SPECIMENOrdering Facility: [facility] Address:[address] [place], [place] [address]Performed By: #### 56948-1, LIPNF ####[facility] LABIA [id number] [place] [id number] [place] AMERICAProtein [Mass/Vol]7.1 g/dLNormal6.3-8.0[facility] on above:Order Comment: Specimen Type: BLOOD SPECIMENOrdering Facility: [facility] Address:[address] [place], [place] [address]Performed By: #### 93517-5, LIPNF ####[facility] LABCLIA [id number] [address] [address] [place] AMERICASodium [Moles/Vol]127 mmol/PIyw280-876TmrtxocjtHighland District Hospital on above:Order Comment: Specimen Type: BLOOD SPECIMENOrdering Facility: [facility] Address:[address] [place], [place] [address]Performed By: #### 80198-7, LIPNF ####[facility] LABCLIA [id number] [place] [address] [place] Urea nitrogen [Mass/Vol]37 mg/dLHigh9-24[facility] on above:Order Comment: Specimen Type: BLOOD SPECIMENOrdering Facility: [facility] Address:[address] [place], [place] [address]Performed By: #### 38048-9, LIPNF ####[facility] LABIA [id number] [address] OF AMERICALIPID PANEL, NONFASTINGon 72-88-6134Ifnebgefeqg [Mass/Vol]144 mg/dLNormal<200[facility] on above:Order Comment: Specimen Type: BLOOD SPECIMENOrdering Facility: [facility] Address:[address] [place], [place] [address]Result Comment: <200 mg/dL, Desirable 200-239 mg/dL, Borderline high >239 mg/dL, HighPerformed By: #### 45410-6, LIPNF ####[facility] LABIA [id number] [address] [place] [address] [place] OF AMERICAHDL CHOLESTEROL, NF51 mg/dLNormal>39[facility] Comment on above:Order Comment: Specimen Type: BLOOD SPECIMENOrdering Facility: [facility] Address:[address] [place], [place] [address]Result Comment: 40-59 mg/dL, Acceptable >59 mg/dL, High: Negative risk factor for coronary heart disease <40 mg/dL, Low: Positive risk factor for coronary heart diseasePerformed By: #### 87524-0, LIPNF ####[facility] LABCLIA [id number] [address] [address] [facility] MEDICAL CENTERLDL CHOLESTEROL, NF59 mg/dLNormal<100[facility] on above: Order Comment: Specimen Type: BLOOD SPECIMENOrdering Facility: [facility] Address:[address] [place], [place] [address]Result Comment: <100 mg/dL, Optimal 100-129 mg/dL, Near optimal/above optimal 130-159 mg/dL, Borderline high 160-189 mg/dL, High >189 mg/dL, Very high Secondary prevention optimal LDL Cholesterol levels are recommended to be < 70 mg/dLPerformed By: #### 90891-1, LIPNF ####[facility] LABIA [id number] [address] LDL/HDL RATIO, NF1.16 mg/dLNormal<2.54[facility] on above:Order Comment: Specimen Type: BLOOD SPECIMENOrdering Facility: [facility] Address:[address] [place], [place] [address]Result Comment: Reference: 1. National Cholesterol Education Program ATP III Guideline At-A-Glance Quick Desk Reference: National Heart, Lung, and Blood [place]. National Institutes of Health. 2001: NIH Publication No. 01-3305. 2. An International Atherosclerosis Society position paper: global recommendations for the management of dyslipidemia: executive summary, Atherosclerosis. 2014: 232(2):410-413.Performed By: #### 74245-1, LIPNF ####[facility] LABIA [id number] [place] [id number] [place] AMERICANON HDL CHOL, NF93 mg/dLNormal <130[facility] on above:Order Comment: Specimen Type: BLOOD SPECIMENOrdering Facility: [facility] Address:[address] [place], [place] [address]Result Comment: <130 mg/dL, Optimal 130-159 mg/dL, Near optimal/above optimal 160-189 mg/dL, Borderline high 190-219 mg/dL, High >219 mg/dL, Very high Secondary prevention optimal non HDL Cholesterol levels are recommended to be <100 mg/dLPerformed By: #### 18144-4, LIPNF ####[facility] LABCLIA [id number] [address] OF WHITE HOSPITALT CHOL/HDL RATIO NF2.82 mg/dLNormal<5.10[facility] Comment on above:Order Comment: Specimen Type: BLOOD SPECIMENOrdering Facility: [facility] Address:[address] [place] [address] Performed By: #### [id number], LIPNF ####[facility] [id number] [address] STATES [facility] TRIGLYCERIDES, NF168 mg/dLHigh<150[facility] HospitalComment on above: Order Comment: Specimen Type: BLOOD SPECIMENOrdering Facility: [facility] Address:[address] [place], [place] [address]Result Comment: <150 mg/dL, Normal 150-199 mg/dL, Borderline high 200-499 mg/dL, High >499 mg/dL, Very highPerformed By: #### 89505-1, LIPNF ####[facility] [id number] [address] STATES OF [facility] HOSPITALVLDL CHOLESTEROL, NF34 mg/dLHigh<30[facility] Comment on above:Order Comment: Specimen Type: BLOOD SPECIMENOrdering Facility: [facility] Address:[address] [place] [address] Performed By: #### 71408-8, LIPNF ####[facility] [id number] [address] [place] Iss[place] [id number] ([facility] MANOLO ROCHE ([id number]) 1935 M Date Time Provider Department 09/22/24 [...] Date Reviewed: 07/06/2024 Reviewed by: Ayana Zavala APRN.UTILITY SYSTEM OPERATOR - Fully Assessed Prescriptions as of 09/22/2024 [...] 5,) crtg Change every 72 hours. - baddah-dbrbizry-gesqszd (CREON) 24,000-76,000 -120,000 unit cpDR Take 2 [...] *06/23/2018 Encounter Status:Closed by GAYE MATA on 09/22/24NoMercy Health Clermont HospitalValdemarphone (LIANNA) MANOLO ROCHE ([id number]) 1935 M Date Time Provider Department 09/22/24 [...] Date Reviewed: 07/06/2024 Reviewed by: Ayana Zavala APRN.UTILITY SYSTEM OPERATOR - Fully Assessed Reason for Visit: Omnipod [...] 5,) crtg Change every 72 hours. - rcgavp-sihqufot-cmyoczu (CREON) 24,000-76,000 -120,000 unit cpDR Take 2 [...] *06/23/2018 Encounter Status:Closed by GAYE MATA on 09/22/24[facility] [id number] (LIANNA) MANOLO ROCHE ([id number]) 1935 M Date Time Provider Department 09/21/24 GAYE MATA During your visit today, we recorded the following information about you: Allergies As of Date: 09/21/2024 (No Known Allergies) Date Reviewed: 07/06/2024 Reviewed by: Ayana Zavala APRN.UTILITY SYSTEM OPERATOR - Fully Assessed Reason for Visit: Omod 5 upgrade follow up call [Other] Prescriptions [...] 5,) crtg Change every 72 hours. - phdmzp-xvmmxqzx-ycyforv (CREON) 24,000-76,000 -120,000 unit cpDR Take 2 [...] *06/23/2018 Encounter Status:Closed by GAYE MATA on 09/21/24No[facility] BASIC METABOLIC PANELon 13-52-7586Xujmk gap [Moles/Vol]13.1 mmol/L [facility]S HealthcareCalcium [Mass/Vol]9 mg/dL8.5 - 10.1 mg/dLNOMS HealthcareChloride [Moles/Vol]99 mmol/L98 - 107 mmol/LNOMS HealthcareCO2 [Moles/Vol]31.2 mmol/L21.0 - 32.0 mmol/LNOMS HealthcareCreatinine [Mass/Vol]1.31 mg/dLHigh0.70 - 1.30 mg/dLNOMS HealthcareGFR/1.73 sq M.predicted CKD-EPI (S/P/Bld) [Vol rate/Area]>60 >=60 mL/min/1.73m 2NOMS HealthcareGlucose [Mass/Vol]385 mg/dVXftb18 - 106 mg/dL [facility] HealthcarePotassium [Moles/Vol]4.3 mmol/L3.5 - 5.1 mmol/LNOMS Healthcare Sodium [Moles/Vol]139 mmol/L136 - 145 mmol/LNOMS HealthcareTBH EGFR-NON AF WTQYCEAB21Hvo>=60 mL/min/1.73m 2NOMS HealthcareUrea nitrogen [Mass/Vol]23 mg/dL High7.0 - 18.0 mg/dLNOMS HealthcareUrea nitrogen/Creatinine [Mass ratio]17.6 mg/mgNOMS HealthcareALL PRO BNPon 78-34-9017TU PRO B TYPE NATRIURETIC [id number] pg/mLCritically highNINF - 1800.0 pg/mLNOMS HealthcareComment on above:RESULTS CALLED TO ZENAIDA SANDOVAL RN AT [facility] Panel Informationon 09-13-2024 Interpretation and review of laboratory resultsAbnormalNOND HealthcareCLINISYNC NOMS HealthcareCNNURSEon 61-25-3676MPOWLBOUmqek Visit (LIANNA) MANOLO ROCHE ([id number]) 1935 M Date Time Provider Department 09/04/24 1:00 PM GAYE MATA During your visit today, we recorded the following information about you: Gaye Mata, KARIN 09/04/2024 3:22 PM Signed DIABETES SELF-MANAGEMENT EDUCATION AND SUPPORT FOLLOW-UP VISIT Type of Diabetes: Type 2 Location: [place] Type of visit: In person individual Types [...] meter for manual fingersticks, not connected to BrainCellsod BeCouply Type of visit: In person individual Patient started today on Omnipod 5 insulin pump. Type of training:upgrade from [facility] If upgrade, patient was previously on the [...] and programmed into pump today. Name: Manolo Roche Date of : 1935 Report Created: 09/04/2024 [...] Name: Insulet Omnipod? 5 System Serial Number: [id number] Sync Date: 09/04/24 Device Time Offset (hh:mm): +00:00 Device Name: Insulet Omnipod Dash? System Serial Number: [id number] Sync Date: 03/05/22 Device Time Offset (hh:mm): +00:00 Device Name: Insulet Omnipod Dash? System Serial Number: [id number] Sync Date: 11/14/21 Device Time Offset (hh:mm): +00:00 Device Name: Insulet Omnipod DASH? Morris Serial Number: Insulet Dash Sync Date: 09/19/20 Device Time Offset (hh:mm): +00:00 Device Name: Insulet Omnipod Dash? System Serial Number: [id number] Sync Date: 09/19/20 Device Time Offset (hh:mm): [...] menu to create frequ (more content not included)...NormalSouthwest General Health Centeron 97-19-0021SCMTTpxrlecsl (LIANNA) MANOLO ROCHE ([id number]) 1935 M Date Time Provider Department 08/31/24 [...] Omnipod, Glooko, and Dexcom G7, his smartphone, OmnipmotionBEAT inc 5 controller phone fully charged and updated if needed so the pump start will go smoothly. requested email resent to her with instructions on day of training information to [email or web address] Allergies As of Date: 08/31/2024 (No Known Allergies) Date Reviewed: 07/06/2024 Reviewed by: Ayana Zavala APRN.UTILITY SYSTEM OPERATOR - Fully Assessed Reason for Visit: Appointment [...] 5,) crtg Change every 72 hours. - pfqmlt-djxsmxzl-cgcuhbg (CREON) 24,000-76,000 -120,000 unit cpDR Take 2 [...] *06/23/2018 Encounter Status:Closed by GAYE MATA on 08/31/24NoMercy Health Clermont HospitalCNPNon [id number] (ENDOLN) MANOLO ROCHE ([id number]) 1935 M Date Time Provider Department 08/15/24 AYANA ZAVALA ENDOLN During your visit today, we recorded the following information about you: Miguel A Goodwin MA 08/15/2024 10:24 AM Signed Received a fax from [employer] for a physician's order. Placed on Ayana's desk for signature on form and chart notes. Miguel A Goodwin MA 08/15/2024 11:57 AM Signed Form completed, faxed, confirmation received. Sent for scan. Allergies As of Date: 08/15/2024 (No Known Allergies) Date Reviewed: 07/06/2024 Reviewed by: Ayana Zavala APRN.UTILITY SYSTEM OPERATOR - Fully Assessed Reason for Visit: Forms [913] Cmt: [employer]- Physcians order Prescriptions as of 08/15/2024 - [...] 5,) crtg Change every 72 hours. - rtvuuy-rukxyatz-naqxezb (CREON) 24,000-76,000 -120,000 unit cpDR Take 2 [...] *06/23/2018 Encounter Status:Closed by ERICK PEGUERO on 08/15/24[facility]dan[facility] [phone] (ENDOLN) MANOLO RCOHE ([id number]) 1935 M Date Time Provider Department 08/09/24 AYANA ZAVALA During your visit today, we recorded the following information about you: Sheryl Ny MA 08/09/2024 10:39 AM Signed A form has been received from [employer] for LUCA steen. Faxed LUCA note 07/06/24 to [phone]. Confirmation received. Allergies As of Date: 08/09/2024 (No Known Allergies) Date Reviewed: 07/06/2024 Reviewed by: Ayana Zavala APRN.UTILITY SYSTEM OPERATOR - Fully Assessed Reason for Visit: Forms [873] Cmt: [facility] - LUCA note Prescriptions as of 08/09/2024 [...] 5,) crtg Change every 72 hours. - xdaavx-fpmegogi-lhdnfvg (CREON) 24,000-76,000 -120,000 unit cpDR Take 2 [...] *06/23/2018 Encounter Status:Closed by SHERYL [place] on 08/09/24[facility] [id number] Visit ([facility]) MANOLO ROCHE ([id number]) 1935 M Date Time Provider Department 07/25/24 1:00 PM GAYE MATA During your visit today, we recorded the following information about you: Gaye Mata, RN 07/25/2024 5:09 PM Signed DIABETES CARE AND EDUCATION VISIT Location: [place] Type of visit: In person individual PATIENT'S [...] below for current pump settings Name: Manolo Roche Date of : 1935 Report Created: 07/25/2024 [...] - - - - DEVICES Device Name: Qihoo 360 Technology? System Serial Number: [id number] Sync Date: 07/06/24 Device Time Offset (hh:mm): [...] basics AND daily use and CGM type: CyberDefender G7 with reader. Patient understand he will need to download CyberDefender G7 eliane on his Iphone SE. Patient unable to recall log in for Dexcom eliane. Patient downloaded G6 eliane, not G7 eliane. Educator needed to call [employer] for assistance in resetting password as patient [...] terminology: basal, bolus, carb ratio, BG target, ceyohdn-fc-hdaby/duration, and patient did not bring insulin vials with him so we were unable to start pump today. Patient and leaving for [place] for a month tomorrow and has rescheduled [...] TOPICS: 1. Patient and to return after [place] trip to start Omnipod 5 switch from [...] vials or have eliane (more content not included)...NormalUK [facility] BASIC METABOLIC PANELon 91-96-4904Vcpqz gap [Moles/Vol]16.6 mmol/LNOMS HealthcareCalcium [Mass/Vol]8.8 mg/dL8.5 - 10.1 mg/dLNOND HealthcareChloride [Moles/Vol]99 mmol/L98 - 107 mmol/L N[facility] HealthcareCO2 [Moles/Vol]27.6 mmol/L21.0 - 32.0 mmol/LNOMS Healthcare Creatinine [Mass/Vol]1.12 mg/dL0.70 - 1.30 mg/dLNOND HealthcareGFR/1.73 sq M.predicted CKD-EPI (S/P/Bld) [Vol rate/Area]>60>=60 mL/min/1.73m 2NOMS HealthcareGlucose [Mass/Vol]297 mg/zUMusn57 - 106 mg/dLNOND Healthcare Interpretation and review of laboratory resultsAbnormalNOND HealthcarePotassium [Moles/Vol]4.2 mmol/L3.5 - 5.1 mmol/LNOMS HealthcareSodium [Moles/Vol]139 mmol/L 136 - 145 mmol/LNOMS HealthcareTBH EGFR-NON AF SAO TOMEAN>60>=60 mL/min/1.73m 2 NOMS HealthcareUrea nitrogen [Mass/Vol]22 mg/dLHigh7.0 - 18.0 mg/dLNOND HealthcareUrea nitrogen/Creatinine [Mass ratio]19.6 mg/mgNOND Healthcare CLINISYNCNOND HealthcareCNPNon 15-11-1586LRWIStfdddzhk ([facility]) MANOLO ROCHE ([id number]) 1935 M Date Time Provider Department 07/21/24 GAYE MATALeeann During your visit today, we recorded the following information about you: Allergies As of Date: 07/21/2024 (No Known Allergies) Date Reviewed: 07/06/2024 Reviewed by: Ayana Zavala APRN.UTILITY SYSTEM OPERATOR - Fully Assessed Reason for Visit: Appointment [...] 5,) crtg Change every 72 hours. - fppvib-rhzuiidc-wujurcp (CREON) 24,000-76,000 -120,000 unit cpDR Take 2 [...] *06/23/2018 Encounter Status:Closed by GAYE MATA on 07/21/24[address] with Estimated Average Gluon 80-32-8580Fpmattm [Mass/Vol]235 mg/dL NormalThe [facility] Health Physician GroupComment on above:Result Comment: PERFORMED BY: [address] [place] [address] PATHOLOGIST MAINTENANCE MECHANIC SUPERVISOR ANDRE PERALTA M.D.Performed By: #### GLULS #### Point of Care testing ,HbA1c (Bld) [Mass fraction]9.8 %High4.3-5.6The [facility] Health Physician GroupComment on above:Result Comment: Increased risk for diabetes: 5.7 - 6.4 diabetes: >6.4 glycemic control for adults with diabetes: <7.0Performed By: #### GLULS #### Point of Care testing ,Acanthocytes [Presence] in Blood by Light microscopyOrdered By: Indra Guillory on 06-50-5933Icrpkthvzlif LM Ql (Bld)Acanthocytes [Presence] in Blood by Light microscopyFirelands Regional Medical CenterAlanine aminotransferase [Enzymatic activity/volume] in Serum or PlasmaOrdered By: Indra Guillory on 27-89-0724GZY [Catalytic activity/Vol]Alanine aminotransferase [Enzymatic activity/volume] in Serum or Plasma7-52[facility] Medical CenterAlbumin [Mass/volume] in Serum or Plasma by Bromocresol green (BCG) dye binding metho Ordered By: Indra Guillory on 72-19-4172Pufppzk BCG dye [Mass/Vol]Albumin [Mass/volume] in Serum or Plasma by Bromocresol green (BCG) dye binding metho 3.5-5.7FAccess Hospital DaytonAlkaline phosphatase [Enzymatic activity/volume] in Serum or PlasmaOrdered By: Indra Guillory on 07-17-2024 ALP [Catalytic activity/Vol]Alkaline phosphatase [Enzymatic activity/volume] in Serum or BtfykiNioq88-757PmnvoweimAdena Pike Medical CenterAnisocytosis LM Ql (Bld)Ordered By: Indra Guillory on 28-53-7628Ikymmjyzcluh Ql (Bld) Anisocytosis [Presence] in Blood by Light microscopyAdena Pike Medical CenterAspartate aminotransferase [Enzymatic activity/volume] in Serum or Plasma Ordered By: Indra Guillory on 55-86-4098DQQ [Catalytic activity/Vol] Aspartate aminotransferase [Enzymatic activity/volume] in Serum or Tsuvcr39-22 [facility] Medical CenterBand form neutrophils/100 WBC Manual cnt (Bld) Ordered By: Indra Guillory on 20-47-0333Rahr form neutrophils/100 WBC (Bld) Peripheral white blood cell differential % bands, microscopic exam0-5FAccess Hospital DaytonBasophils Auto (Bld) [#/Vol]Ordered By: Indra Guillory on 68-96-1741Fltdlqyor (Bld) [#/Vol]Automated basophil countAdena Pike Medical CenterBasophils/100 WBC Auto (Bld)Ordered By: Indra Guillory on 09-73-0479Pyvrknszn/100 WBC (Bld)Automated basophil %[facility] Medical CenterBilirubin.total [Mass/volume] in Serum or PlasmaOrdered By: Indra Guillory on 54-03-0371Wfgpyvkvt [Mass/Vol]Bilirubin.total [Mass/volume] in Serum or Plasma0.3-1.0[facility] Medical CenterBioFire Not Detectedon 96-50-5996WfiAvpo Not DetectedNot detectedNormalNot DetecteThe [facility] Health Physician GroupComment on above:Result Comment: This is a duplicate RP2.1 COVID (PCR) result to be used for statistical tracking purpose only. PERFORMED BY: [facility] [address] [place] [address] PATHOLOGIST MAINTENANCE MECHANIC SUPERVISOR ANDRE PERALTA M.D.Performed By: #### GLULS #### Point of Care testing ,Blood estimated average glucose determination by estimation from glycated hemoglobinOrdered By: Indra Guillory on 84-68-1142Awockjs glucose Estimated from glycated hemoglobin (Bld) [Mass/Vol]Glucose mean value [Mass/volume] in Blood Estimated from glycated hemoglobinAdena Pike Medical CenterBurr cells [Presence] in Blood by Light microscopyOrdered By: Indra Guillory on 21-64-8703Tygd cells LM Ql (Bld)South Heart cells [Presence] in Blood by Light microscopyAdena Pike Medical CenterCOVID-19 Detected/Not DetectedOrdered By: Indra Guillory on 72-83-2699ICJN-CoV-2 (COVID-19) RNA ANASTASIA+non-probe Ql (Nph)Not detectedNot DetectLakeHealth TriPoint Medical CenterComment on above: This is a duplicate RP2.1 COVID (PCR) result to be used for statistical tracking purpose only.Calcium [Mass/volume] in Serum or PlasmaOrdered By: Indra Guillory on 90-51-2247Pyuzaif [Mass/Vol]Calcium [Mass/volume] in Serum or Plasma8.6-10.3FAccess Hospital DaytonCarbon dioxide, total [Moles/volume] in Serum or PlasmaOrdered By: Indra Guillory on 07-17-2024 CO2 [Moles/Vol]Carbon dioxide, total [Moles/volume] in Serum or Ytetcc61.0-31.0 [facility] Medical CenterChloride [Moles/volume] in Serum or Plasma Ordered By: Indra Guillory on 70-96-6576Tkthurhf [Moles/Vol]Chloride [Moles/volume] in Serum or SpifozMlp79-086PghoedkwzAdena Pike Medical Center Comprehensive Metabolic Panelon 03-78-7100Kkjzwsk [Mass/Vol]3.6 g/dLNormal 3.5-5.7The [facility] Health Physician GroupComment on above:Performed By: #### GLULS #### Point of Care testing ,Albumin/Globulin [Mass ratio]1.2 {ratio}NormalThe [facility] Comment on above:Performed By: #### GLULS #### Point of Care testing ,ALP [Catalytic activity/Vol]136 U/ECuwa56-803Ola [facility] Comment on above:Performed By: #### GLULS #### Point of Care testing ,ALT [Catalytic activity/Vol]18 U/LNormal7-52The [facility] Comment on above:Performed By: #### GLULS #### Point of Care testing ,Anion gap [Moles/Vol]11.6 mmol/LNormal6.0-15.0The [facility] Comment on above:Performed By: #### GLULS #### Point of Care testing ,AST [Catalytic activity/Vol]20 U/WJoxtpk41-90Pqt [facility] Comment on above:Performed By: #### GLULS #### Point of Care testing ,Bilirubin [Mass/Vol]0.6 mg/dLNormal0.3-1.0The [facility] Health Physician GroupComment on above:Performed By: #### GLULS #### Point of Care testing ,Calcium [Mass/Vol]8.8 mg/dLNormal8.6-10.3The [facility] Health Physician GroupComment on above:Performed By: #### GLULS #### Point of Care testing ,Chloride [Moles/Vol]96 mmol/GCcs03-850Edq [facility] Physician GroupComment on above:Performed By: #### GLULS #### Point of Care testing ,CO2 [Moles/Vol]28.2 mmol/TXywnqb66.0-31.0The [facility] Health Physician GroupComment on above:Performed By: #### GLULS #### Point of Care testing ,Creatinine [Mass/Vol]1.03 mg/dLNormal0.70-1.30The [facility] Comment on above:Performed By: #### GLULS #### Point of Care testing ,Creatinine Clr Calc Nbpyghre12.38NormMayo Clinic Florida Physician GroupComment on above:Result Comment: PERFORMED BY: [facility] [address] PATHOLOGIST MAINTENANCE MECHANIC SUPERVISOR ANDRE PERALTA M.D.Performed By: #### GLULS #### Point of Care testing ,GFR/1.73 sq M.predicted MDRD (S/P/Bld) [Vol rate/Area]mL/min/{1.73_m2}NormalThe [facility] Health Physician GroupComment on above:Performed By: #### GLULS #### Point of Care testing ,Globulin (S) [Mass/Vol]3.0 g/dLNoDosher Memorial Hospital Physician GroupComment on above:Performed By: #### GLULS #### Point of Care testing ,Glucose [Mass/Vol]443 mg/dLSignificant change db13-518Kdn [facility] Physician GroupComment on above:Result Comment: Random Glucose Reference Range is dependent on time and content of last meal. Glucose of more than 200 mg/dL in a nonstressed, ambulatory subject supports the diagnosis of Diabetes Mellitus. ADA recommended reference rangePerformed By: #### GLULS #### Point of Care testing ,Potassium [Moles/Vol]4.8 mmol/LNormal3.5-5.1The [facility] Comment on above:Performed By: #### GLULS #### Point of Care testing ,Protein [Mass/Vol]6.6 g/dLNormal6.4-8.9The [facility] Health Physician GroupComment on above:Performed By: #### GLULS #### Point of Care testing ,Sodium [Moles/Vol]131 mmol/OSxg025-032Szo [facility] Physician GroupComment on above:Performed By: #### GLULS #### Point of Care testing ,Urea nitrogen [Mass/Vol]20 mg/dLNormal7-25The [facility] Health Physician GroupComment on above:Performed By: #### GLULS #### Point of Care testing ,Creatinine [Mass/volume] in Serum or PlasmaOrdered By: Indra Guillory on 10-12-8469Ocmoumxbhw [Mass/Vol]Creatinine [Mass/volume] in Serum or Plasma 0.70-1.30[facility] Medical CenterDiff and CBCon 04-51-3123Rkrwptpkfcqr MarkedAdventHealth East Orlando Physician GroupComment on above:Performed By: #### GLULS #### Point of Care testing ,Anisocytosis Ql (Bld)ModerateAdventHealth East Orlando Physician GroupComment on above:Performed By: #### GLULS #### Point of Care testing ,Band form neutrophils/100 WBC (Bld)1 %Normal0-5The [facility] Physician [facility] Comment on above:Performed By: #### GLULS #### Point of Care testing ,Crenated RBCModerateAdventHealth East Orlando Physician GroupComment on above: Performed By: #### GLULS #### Point of Care testing ,Erythrocyte distribution width (RBC) [Ratio]19.7 %High12.0-14.8The [facility] Health Physician GroupComment on above:Performed By: #### GLULS #### Point of Care testing ,Helmet CellsSlightAdventHealth East Orlando Physician GroupComment on above:Performed By: #### GLULS #### Point of Care testing ,Hematocrit (Bld) [Volume fraction]37.8 %Low38.8-50.0The [facility] Health Physician GroupComment on above:Performed By: #### GLULS #### Point of Care testing ,Hemoglobin (Bld) [Mass/Vol]12.4 g/dLLow13.0-17.0[facility] Physician [facility] Comment on above:Performed By: #### GLULS #### Point of Care testing ,HypochromasiaMarkedAdventHealth East Orlando Physician GroupComment on above: Performed By: #### GLULS #### Point of Care testing ,Lymphocytes/100 WBC (Bld)18 %Jzvqra60-26Hqr [facility] Physician GroupComment on above:Performed By: #### GLULS #### Point of Care testing ,MCH (RBC) [Entitic mass]26.3 pgLow27.5-35.2The [facility] Health Physician GroupComment on above:Performed By: #### GLULS #### Point of Care testing ,MCV (RBC) [Entitic vol]80.0 fLLow83.5-101The [facility] Health Physician GroupComment on above:Performed By: #### GLULS #### Point of Care testing ,Mean Corpuscular HGB Conc32.8 g/iNCkhzzd74.5-35.6The [facility] Comment on above:Performed By: #### GLULS #### Point of Care testing ,MicrocytosisSlightAdventHealth East Orlando Physician GroupComment on above:Performed By: #### GLULS #### Point of Care testing ,Monocytes/100 WBC (Bld)4 %Normal2-11The [facility] Health Physician GroupComment on above:Performed By: #### GLULS #### Point of Care testing ,Platelet EstimateNormalNormalAdventHealth East Orlando Physician GroupComment on above:Performed By: #### GLULS #### Point of Care testing ,Platelet mean volume (Bld) [Entitic vol]11.0 fLHigh6.6-10.1The [facility] Health Physician GroupComment on above:Performed By: #### GLULS #### Point of Care testing ,Platelet MorphologyNormalNormalAdventHealth East Orlando Physician GroupComment on above:Result Comment: PERFORMED BY: [facility] [address] [place] [address] PATHOLOGIST MAINTENANCE MECHANIC SUPERVISOR ANDRE PERALTA M.D.Performed By: #### GLULS #### Point of Care testing ,Platelets (Bld) [#/Vol]229 10*3/pVJkxhbl251-180GmbWinston Medical Center Comment on above:Performed By: #### GLULS #### Point of Care testing ,PoikilocytosisMarkedAdventHealth East Orlando Physician GroupComment on above: Performed By: #### GLULS #### Point of Care testing ,PolychromasiaSlightNoDosher Memorial Hospital Physician GroupComment on above: Performed By: #### GLULS #### Point of Care testing ,RBC (Bld) [#/Vol]4.73 10*6/uLNormal3.90-5.60[facility] Physician [facility] Comment on above:Performed By: #### GLULS #### Point of Care testing ,SchistocytesModerateAdventHealth East Orlando Physician GroupComment on above: Performed By: #### GLULS #### Point of Care testing ,Segmented neutrophils/100 WBC (Bld)77 %Exjo79-04Lkp [facility] Comment on above:Performed By: #### GLULS #### Point of Care testing ,Target CellsModBayCare Alliant Hospital Physician GroupComment on above: Performed By: #### GLULS #### Point of Care testing ,WBC (Bld) [#/Vol]4.8 10*3/uLNormal4.1-10.5The [facility] Health Physician GroupComment on above:Performed By: #### GLULS #### Point of Care testing ,Eosinophils Auto (Bld) [#/Vol]Ordered By: Indra Guillory on 07-17-2024 Eosinophils (Bld) [#/Vol]Automated eosinophil countAdena Pike Medical CenterEosinophils/100 WBC Auto (Bld)Ordered By: Indra Guillory on 46-21-0075Qywrnuounya/100 WBC (Bld)Automated eosinophil %[facility] Medical CenterErythrocyte distribution width Auto (RBC) [Ratio]Ordered By: Indra Guillory on 64-53-0060Capnmoeszob distribution width (RBC) [Ratio] Erythrocyte distribution width [Ratio] by Automated wbkfhGpox98.0-14.8A[facility] Pike Medical CenterErythrocyte morphology finding [Identifier] in Blood Ordered By: Indra Guillory on 70-42-4162ZDO morphology finding Nom (Bld)RBC morphologyAdena Pike Medical CenterGlobulin Calc (S) [Mass/Vol]Ordered By: Indra Guillory on 85-80-3866Hconujyc (S) [Mass/Vol]Serum globulin measurement by calculation (mass/volume)[facility] Medical CenterGlucose Glucometer (BldC) [Mass/Vol]Ordered By: Lisa Hidalgo on 52-08-7371Yecnnyn [Mass/Vol]Capillary blood glucose measurement by glucometer (mass/volume) [facility] Medical CenterComment on above:Random Glucose Reference Range is dependent on time and content of last meal. Glucose of more than 200 mg/dL in a nonstressed, ambulatory subject supports the diagnosis of Diabetes Mellitus.Glucose Poct Glucometerson 17-90-2214Zggocqk [Mass/Vol]299 mg/dLNormal The [facility] Health Physician GroupComment on above:Result Comment: Random Glucose Reference Range is dependent on time and content of last meal. Glucose of more than 200 mg/dL in a nonstressed, ambulatory subject supports the diagnosis of Diabetes Mellitus. PERFORMED BY: [place] [id number] PATHOLOGIST MAINTENANCE MECHANIC SUPERVISOR ANDRE PERALTA M.D.Performed By: #### GLULS ####Point of Care testing, Glucose [Mass/Vol]341 mg/dLNoDosher Memorial Hospital Physician GroupComment on above: Result Comment: Random Glucose Reference Range is dependent on time and content of last meal. Glucose of more than 200 mg/dL in a nonstressed, ambulatory subject supports the diagnosis of Diabetes Mellitus. PERFORMED BY: [address] [place] [place] [address] PATHOLOGIST MAINTENANCE MECHANIC SUPERVISOR ANDRE PERALTA M.D.Performed By: #### GLULS #### Point of Care testing ,Glucose [Mass/Vol]386 mg/dLNoDosher Memorial Hospital Physician GroupComment on above: Result Comment: Random Glucose Reference Range is dependent on time and content of last meal. Glucose of more than 200 mg/dL in a nonstressed, ambulatory subject supports the diagnosis of Diabetes Mellitus. PERFORMED BY: [address] [address] PATHOLOGIST MAINTENANCE MECHANIC SUPERVISOR ANDRE PERALTA M.D.Performed By: #### GLULS ####Point of Care testing, Mxvicva0VanckiHnyAdventHealth East Orlando Physician GroupComment on above:Result Comment: Glu2: Will Repeat TestPerformed By: #### GLULS #### Point of Care testing ,Obpyslw6FCOK NOTIFY DR/KARINWadena ClinicComment on above: Performed By: #### GLULS #### Point of Care testing ,Qwzskey6Xxkldtq MeterAdventHealth East Orlando Physician GroupComment on above:Result Comment: PERFORMED BY: [place] [address] PATHOLOGIST MAINTENANCE MECHANIC SUPERVISOR ANDRE PERALTA M.D.Performed By: #### GLULS #### Point of Care testing ,Glucose [Mass/Vol]406 mg/dLOff scale [facility] Physician GroupComment on above:Result Comment: Random Glucose Reference Range is dependent on time and content of last meal. Glucose of more than 200 mg/dL in a nonstressed, ambulatory subject supports the diagnosis of Diabetes Mellitus.Performed By: #### GLULS #### Point of Care testing ,Nzawdow7OzgshpN[address] Physician GroupComment on above:Result Comment: Glu2: WILL NOTIFY DR/RN PERFORMED BY: [place] [address] PATHOLOGIST MAINTENANCE MECHANIC SUPERVISOR ANDER PERALTA M.D.Performed By: #### GLULS #### Point of Care testing ,Glucose [Mass/Vol]451 mg/dLOff scale [facility] Physician GroupComment on above:Result Comment: Random Glucose Reference Range is dependent on time and content of last meal. Glucose of more than 200 mg/dL in a nonstressed, ambulatory subject supports the diagnosis of Diabetes Mellitus.Performed By: #### GLULS #### Point of Care testing ,Avcvqdp2AqudxlLvv[address] Physician GroupCompranay on above:Result Comment: Glu2: Will Repeat Test PERFORMED BY: [place] [address] PATHOLOGIST MAINTENANCE MECHANIC SUPERVISOR ANDRE PERALTA M.D.Performed By: #### GLULS #### Point of Care testing ,Glucose [Mass/Vol]444 mg/dLOff scale [facility] Physician GroupComment on above:Result Comment: Random Glucose Reference Range is dependent on time and content of last meal. Glucose of more than 200 mg/dL in a nonstressed, ambulatory subject supports the diagnosis of Diabetes Mellitus.Performed By: #### GLULS #### Point of Care testing ,Glucose [Mass/volume] in Serum or PlasmaOrdered By: Indra Guillory on 47-96-2567Irmnacv [Mass/Vol]Glucose [Mass/volume] in Serum or PlasmaInvalid Interpretation Cxus91-908AhmbfnnhzAdena Pike Medical CenterComment on above: Delta: 191 on 07/16/24-0ADA recommended reference rangeRandom Glucose Reference Range is dependent on time and content of last meal. Glucose of more than 200 mg/dL in a nonstressed, ambulatory subject supports the diagnosis of Diabetes Mellitus.Helmet cells [Presence] in Blood by Light microscopyOrdered By: Indra Guillory on 73-48-5657Qxthjd cells LM Ql (Bld)Helmet cell detectionAdena Pike Medical CenterHematocrit Auto (Bld) [Volume fraction]Ordered By: Indra Guillory on 70-07-5433Fkguvtsgtp (Bld) [Volume fraction]Hematocrit [Volume Fraction] of Blood by Automated gguhwKyx56.8-50.0 [facility] Medical CenterHemoglobin A1c/Hemoglobin.total in BloodOrdered By: Indra Guillory on 55-22-9409RzE7w (Bld) [Mass fraction]Hemoglobin A1c percentageHigh4.3-5.6FAccess Hospital DaytonComment on above:Increased risk for diabetes: 5.7 - 6.4diabetes: >6.4glycemic control for adults with diabetes: <7.0Hemoglobin [Mass/volume] in BloodOrdered By: Indra Guillory on 78-76-0979Aootpawoea (Bld) [Mass/Vol]Hemoglobin [Mass/volume] in UhqhyJwh67.0-17.0[facility] Medical CenterHypochromia LM Ql (Bld)Ordered By: Indra Guillory on 06-90-0741Tpkdqwqrmun Ql (Bld)Hypochromia [Presence] in Blood by Light microscopyAdena Pike Medical CenterINR in Platelet poor plasma by Coagulation assayOrdered By: Indra Guillory on 79-67-4765MJH Coag (PPP) [Relative time]INR in Platelet poor plasma by Coagulation assay [facility]ike Medical CenterComment on above:INR Therapeutic Range A) Pre- and Peroperative OAT started two weeks before surgery. NOT HIP SURGERY: 1.5 - 2.5 HIP SURGERY: 2 - 3B) Primary and secondary prevention of venous THROMBOSIS: 2 - 3C) Active venous thrombosis, pulmonary embolismand prevention of recurrent venous thrombosis: 2 - 3D) Prevention of arterial thromboembolismincluding patients with mechanical heart valves: 3 - 4.5Lon 07-17-2024L Specimen: [id number] Received: 07/17/24 Status: LYUDMILA Gómez Num: [id number] Spec Type: Impression Subm Dr: Indra Guillory MD Tissues: PATHPER Procedures: PATHREVIEW Age/ Patient Sex Location Account Attending Physician Manolo Roche 89/M 4N [id number] Lisa Hidalgo MD SPEC NUM: [id number] RECD: 07/17/24 STATUS: LYUDMILA REQ NUM: [id number] MARANDA: 07/17/24 DR: Indra Guillory MD ENTERED: 07/17/[address]: SPEC TYPE: Impression DEPT: IN ORDERED: PATHREVIEW ORDERED: PATHREVIEW Pathologist Review Abnormal [...] CBC laboratory follow- ups are also suggested [facility] [id number] Specimen: Received: 07/17/24 Status: LOVELeeann óGmez Num: [id number] Spec Type: Impression Subm Dr: Indra Guillory MD Tissues: PATHPER Procedures: PATHREVIEW Patient: Manolo Roche [id number] (Continued) Specimen: Received: 07/17/24 (Continued) Signed (signature on file) Donovan Bunch MD 07/17/24 1128 Specimen: Received: 07/17/24 Status: LYUDMILA Gómez Num: [id number] Spec Type: Impression Subm Dr: Indra Guillory MD Tissues: PATHPER Procedures: PATHREVIEW Patient: Manolo Roche [id number] (Continued) Specimen: [id number] Received: 07/17/24-851 (Continued) CBC Date Time Test Result Flag (u) Normal Range 07/16/24 1230 Neut % (Auto) 64.8 . % Lymp % (Auto) 18.9 . % [place] % (Auto) 12.8 . % Eos % (Auto) 2.7 . % Baso % (Auto) 0.8 . % NRBC% 0.2 0-0.5 /100 WBC Neut # (Auto) 4.7 1.8-7.7 x10E3/uL Lymph # (Auto) 1.4 1.00-4.8 x10E3/uL [place] # (Auto) 0.9 H 0.0-0.8 x10E3/uL Eos [...] 1 0-5 % Lymph 18 18-42 % [place] 4 2-11 % Polychrom Slight Hypochrom Marked Poik Marked Aniso Moderate Micro Slight Schisto Moderate Target Moderate Helmet Cells Slight Crenated RBC Moderate Acantho Marked Plt Est Normal Normal Plt Morphology Normal Normal Specimen: [id number] Received: 07/17/24 Status: LYUDMILA Gómez Num: [id number] Spec Type: Impression Subm Dr: Indra Guillory MD Tissues: PATHPER Procedures: PATHREVIEW Patient: Manolo Roche [id number] (Continued) Signed (signature on file) IreneSalo Julio C (more content not included)...NormalTrinity Community Hospital Physician GroupLeukocytes [#/volume] corrected for nucleated erythrocytes in Blood by Automated counOrdered By: Indra Guillory on 78-09-6355EER corrected for nucl RBC Auto (Bld) [#/Vol] Leukocytes [#/volume] corrected for nucleated erythrocytes in Blood by Automated coun4.1-10.5FAccess Hospital DaytonLymphocytes Auto (Bld) [#/Vol] Ordered By: Indra Guillory on 10-68-5302Pfaucqaytls (Bld) [#/Vol] Lymphocytes [#/volume] in Blood by Automated countAdena Pike Medical CenterLymphocytes/100 WBC Auto (Bld)Ordered By: Indra Guillory on 62-65-3792Nxghucbabzv/100 WBC (Bld)Lymphocytes/100 leukocytes in Blood by Automated countAdena Pike Medical CenterLymphocytes/100 WBC Manual cnt (Bld)Ordered By: Indra Guillory on 15-53-7019Whjfzqultvr/100 WBC (Bld) Lymphocytes/100 leukocytes in Blood by Manual eawdt20-73TqqnbwvosBarberton Citizens Hospital Auto (RBC) [Entitic mass]Ordered By: Indra Guillory on 64-57-2226YVU (RBC) [Entitic mass]MCH [Entitic mass] by Automated countLow 27.5-35.2FAccess Hospital DaytonMCHC Auto (RBC) [Mass/Vol]Ordered By: Indra Guillory on 17-03-4256BBRR (RBC) [Mass/Vol]MCHC [Mass/volume] by Automated count32.5-35.6FWexner Medical CenterV Auto (RBC) [Entitic vol]Ordered By: Indra Guillory on 04-70-9587DOQ (RBC) [Entitic vol]MCV [Entitic volume] by Automated wvrmtXgw73.5-101[facility] Microcytes LM Ql (Bld)Ordered By: Indra Guillory on 75-65-7751Zmffnhnniv Ql (Bld)Microcytes [Presence] in Blood by Light microscopyAdena Pike Medical CenterMonocytes Auto (Bld) [#/Vol]Ordered By: Indra Guillory on 38-07-4259Hqlkbrznt (Bld) [#/Vol]Automated blood monocyte countAdena Pike Medical CenterMonocytes/100 WBC Auto (Bld)Ordered By: Indra Guillory on 15-66-2516Fimbjwlsm/100 WBC (Bld)Automated monocyte %[facility] Medical CenterMonocytes/100 WBC Manual cnt (Bld)Ordered By: Indra Guillory on 28-25-7691Wtpiyrjnp/100 WBC (Bld)Monocytes/100 leukocytes in Blood by Manual count2-11A[facility] Pike Medical CenterNeutrophils Auto (Bld) [#/Vol]Ordered By: Indra Guillory on 12-65-6759Sqbtiejukik (Bld) [#/Vol] Neutrophils [#/volume] in Blood by Automated countAdena Pike Medical CenterNeutrophils/100 WBC Auto (Bld)Ordered By: Indra Guillory on 22-47-0260Rbsvorprtjv/100 WBC (Bld)Automated neutrophil %[facility] Medical CenterNo Panel InformationOrdered By: Indra Guillory on 07-17-2024 Bedside Glucose #[address]/[facility] Bedside Glucose #3 CommentCleaned meterAdena Pike Medical CenterBedside Glucose CommentSee commentAdena Pike Medical CenterComment on above: Glu2: Will Repeat TestEstimated GFR (CKD-EPI)> 60.0 mL/MinAdena Pike Medical CenterPharmacy Creatinine Clearance (Chem45.38Madison Healthlides for Pathologist ReviewOrdered path reviewAdena Pike Medical CenterNucleated erythrocytes [Presence] in Blood by Automated count Ordered By: Indra Guillory on 56-33-9588Esonszkvz RBC Auto Ql (Bld) Nucleated erythrocytes [Presence] in Blood by Automated countAdena Pike Medical CenterPartial Thromboplastin Timeon 32-72-7100rOTJ Coag (Bld) [Time]30.6 xRzpypp77.1-36.5The [facility] Physician GroupComment on above:Result Comment: A hematocrit value greater than 55% may lead to inaccurate results in coagulation testing. Patients having hematocrit values >55% require a special collection tube for coagulation studies. Please contact the laboratory at [phone] for redraw instructions. PERFORMED BY: [address] [address] PATHOLOGIST MAINTENANCE MECHANIC SUPERVISOR ANDRE PERALTA M.D.Performed By: #### GLULS #### Point of Care testing ,Pathologist Slide Reviewon 35-27-2369Fweglwccmal Slide ReviewOrdered Path ReviewNoDosher Memorial Hospital Physician GroupComment on above:Result Comment: PERFORMED BY: [address] [place] [address] PATHOLOGIST MAINTENANCE MECHANIC SUPERVISOR ANDRE PERALTA M.D.Performed By: #### GLULS #### Point of Care testing ,Pathology study report documentOrdered By: Donovan Bunch on 07-17-2024 Pathology studyAdena Pike Medical Center Other Platelet adequacy [Presence] in Blood by Light microscopyOrdered By: Indra Guillory on 51-96-5641Xggbiwhsp LM Ql (Bld) Platelet adequacy [Presence] in Blood by Light microscopyNoMercy Health Kings Mills HospitalPlatelet mean volume Auto (Bld) [Entitic vol]Ordered By: Indra Guillory on 56-36-6618Fkcdhuzq mean volume (Bld) [Entitic vol] Platelet mean volume [Entitic volume] in Blood by Automated countHigh6.6-10.1 [facility] Medical CenterPlatelet morphology finding [Identifier] in BloodOrdered By: Indra Guillory on 06-35-1101Etwukcsr morphology finding Nom (Bld)Platelet morphology finding [Identifier] in BloodNoMercy Health Kings Mills HospitalPlatelets Auto (Bld) [#/Vol]Ordered By: Indra Guillory on 53-90-5629Vyrmpvixo (Bld) [#/Vol]Platelets [#/volume] in Blood by Automated wpbve587-282VljwpetcwAdena Pike Medical CenterPoikilocytosis [Presence] in Blood by Light microscopyOrdered By: Indra Guillory on 07-17-2024 Poikilocytosis LM Ql (Bld)Poikilocytosis [Presence] in Blood by Light microscopy [facility] Medical CenterPolychromasia [Presence] in Blood by Light microscopyOrdered By: Indra Guillory on 46-71-5798Gylvodzzpyekc LM Ql (Bld) Polychromasia [Presence] in Blood by Light microscopyAdena Pike Medical CenterPotassium [Moles/volume] in Serum or PlasmaOrdered By: Indra Guillory on 22-94-2250Hfcquzcqw [Moles/Vol]Potassium [Moles/volume] in Serum or Plasma 3.5-5.1FAccess Hospital DaytonProtein [Mass/volume] in Serum or Plasma Ordered By: Indra Guillory on 48-35-4988Huilyem [Mass/Vol]Protein [Mass/volume] in Serum or Plasma6.4-8.9[facility] Prothrombin Time INRon 23-07-6421SRJ Coag (PPP) [Relative time]1.3 {INR}Normal The [facility] Physician GroupComment on above:Result Comment: INR Therapeutic Range A) Pre- and [...] patients with mechanical heart valves: 3 - 4.5Performed By: #### GLULS #### Point of Care testing ,PT Coag (PPP) [Time]14.5 sHigh9.0-12.9The [facility] Physician GroupComment on above:Result Comment: A hematocrit value greater than 55% may lead to inaccurate results in coagulation testing. Patients having hematocrit values >55% require a special collection tube for coagulation studies. Please contact the laboratory at [phone] for redraw instructions.Performed By: #### GLULS #### Point of Care testing ,Prothrombin time (PT)Ordered By: Indra Guillory on 76-11-2574JQ Coag (PPP) [Time]Prothrombin time (PT)High9.0-12.9A[facility] Pike Medical CenterComment on above:A hematocrit value greater than 55% may lead to inaccurate results in coagulation testing. Patientshaving hematocrit values >55% require a special collection tube for coagulation studies. Please contact the laboratory at [phone] for redraw instructions.RBC Auto (Bld) [#/Vol]Ordered By: Indra Guillory on 15-15-4448NRT (Bld) [#/Vol]Erythrocytes [#/volume] in Blood by Automated count3.90-5.60A[facility]ike Medical CenterRespiratory (Upper) Panel, PCRon 38-93-3176Ibbackkedvn (Upper) Panel, PCRResults called at 0548 on 07/17/24 Adenovirus Not [...] Influenza A H3 Blank Space PERFORMED BY: [facility] [address] [place] [address] PATHOLOGIST MAINTENANCE MECHANIC SUPERVISOR ANDRE PERALTA M.D.NormalThe [facility] Health Physician GroupComment on above: Performed By: #### GLULS #### Point of Care testing ,Respiratory pathogens DNA and RNA panel - Nasopharynx by ANASTASIA with non-probe detectionOrdered By: Indra Guillory on 04-85-4002Upxxlgmadsv pathogens DNA and RNA panel ANASTASIA+non-probe (Nph)Respiratory pathogens DNA and RNA panel - Nasopharynx by ANASTASIA with non-probe detectionAdena Pike Medical Center Respiratory pathogens DNA and RNA panel ANASTASIA+non-probe (Nph)Respiratory pathogens DNA and RNA panel - Nasopharynx by ANASTASIA with non-probe detectionMadison Healthchistocytes [Presence] in Blood by Light microscopy Ordered By: Indra Guillory on 17-48-3606Kxmgziqoxyku LM Ql (Bld) Schistocytes [Presence] in Blood by Light microscopyMadison Healthegmented neutrophils/100 WBC Manual cnt (Bld)Ordered By: Indra Guillory on 26-43-1799Ulbdkwhnq neutrophils/100 WBC (Bld)Manual blood segmented neutrophils/100 kdkgowmqqfRsuc34-09OljzwhlikMadison Healtherum or plasma albumin/globulin mass ratioOrdered By: Indra Guillory on 07-17-2024 Albumin/Globulin [Mass ratio]Serum or plasma albumin/globulin mass ratio Madison Healtherum or plasma anion gap determinationOrdered By: Indra Guillory on 41-10-6523Gssuj gap [Moles/Vol]Serum or plasma anion gap determination6.0-15.0Madison Healthodium [Moles/volume] in Serum or PlasmaOrdered By: Indra Guillory on 57-04-4129Wygpok [Moles/Vol]Sodium [Moles/volume] in Serum or DnlvuwQvr899-849TgykmmwitAdena Pike Medical CenterTarget cells [Presence] in Blood by Light microscopyOrdered By: Indra Guillory on 32-46-3404Ozqtem cells LM Ql (Bld)Target cellsAdena Pike Medical CenterUrea nitrogen [Mass/volume] in Serum or PlasmaOrdered By: Indra Guillory on 23-67-4120Fdmx nitrogen [Mass/Vol]Urea nitrogen [Mass/volume] in Serum or Plasma7A[facility]a Pike Medical CenterWBC Auto (Bld) [#/Vol]Ordered By: Indra Guillory on 30-74-6102GNQ (Bld) [#/Vol] Leukocytes [#/volume] in Blood by Automated count4.1-10.5FAccess Hospital DaytonaPTT in Platelet poor plasma by Coagulation assayOrdered By: Indraalexandria Guillory on 84-27-4525aOMZ Coag (PPP) [Time]Activated partial thromboplastin time (aPTT) in platelet poor plasma by coagulation a25.1-36.5 [facility]ike Medical CenterComment on above:A hematocrit value greater than 55% may lead to inaccurate results in coagulation testing. Patientshaving hematocrit values >55% require a special collection tube for coagulation studies. Please contact the laboratory at [phone] for redraw instructions. B-Type Natriuretic Peptideon 55-56-7581Fhohmrkvdvf peptide B (Bld) [Mass/Vol] 2052.0 pg/mLHigh5-100The [facility] Health Physician GroupComment on above:Result Comment: PERFORMED BY: [facility] [address] [place] [address] PATHOLOGIST MAINTENANCE MECHANIC SUPERVISOR ANDRE PERALTA M.D.Performed By: #### PT, BMP, BNP, HS TROP, CK, CBC ####[facility] [address] [place] [address] USABasic Metabolic Panelon 21-56-2357Myzte gap [Moles/Vol]10.2 mmol/LNormal6.0-15.0The [facility] Physician [place] [facility] GulfportComment on above:Performed By: #### PT, BMP, BNP, HS TROP, CK, CBC ####[place] [address] [place] [address] USACalcium [Mass/Vol]8.8 mg/dLNormal8.6-10.3The [facility] Comment on above:Performed By: #### PT, BMP, BNP, HS TROP, CK, CBC ####[place] [address] USAChloride [Moles/Vol] 99 mmol/PJsgqbl69-381Ffj [facility] Physician [facility] River GulfportComment on above:Performed By: #### PT, BMP, BNP, HS TROP, CK, CBC ####[place] [address] USACO2 [Moles/Vol]28.0 mmol/JSzcyzi58.0-31.0The [facility] Physician GroupComment on above:Performed By: #### PT, BMP, BNP, HS TROP, CK, CBC ####[place] [address] USACreatinine [Mass/Vol]0.82 mg/dLNormal0.70-1.30The [facility] Physician [facility] GulfportComment on above:Performed By: #### PT, BMP, BNP, HS TROP, CK, CBC ####[place] [address] [place] Creatinine Clr Calc Oyivphva66.91NormalThe [facility] Physician [facility] GulfportComment on above:Result Comment: PERFORMED BY: [facility] [address] [place] [address] PATHOLOGIST MAINTENANCE MECHANIC SUPERVISOR ANDRE PERALTA M.D.Performed By: #### PT, BMP, BNP, HS TROP, CK, CBC ####[place] [address] [place] GFR/1.73 sq M.predicted MDRD (S/P/Bld) [Vol rate/Area]mL/min/{1.73_m2}NormalThe First Hospital Wyoming ValleyComment on above:Performed By: #### PT, BMP, BNP, HS TROP, CK, CBC ####[place] [address] USAGlucose [Mass/Vol]191 mg/eYHcev48-117Vlu [facility] Physician [facility] Comment on above:Result Comment: Random Glucose Reference Range is dependent on time and content of last meal. Glucose of more than 200 mg/dL in a nonstressed, ambulatory subject supports the diagnosis of Diabetes Mellitus. ADA recommended reference rangePerformed By: #### PT, BMP, BNP, HS TROP, CK, CBC ####[place] [address] [place] Potassium [Moles/Vol]4.2 mmol/LNormal3.5-5.1The [facility] Health Physician GroupComment on above:Performed By: #### PT, BMP, BNP, HS TROP, CK, CBC ####[place] [address] USASodium [Moles/Vol]133 mmol/KFzh658-221Qje [facility] Physician GroupComment on above:Performed By: #### PT, BMP, BNP, HS TROP, CK, CBC ####[place] [address] [place] [address] USAUrea nitrogen [Mass/Vol]18 mg/dLNormal7-25The [facility] Physician GroupComment on above:Performed By: #### PT, BMP, BNP, HS TROP, CK, CBC ####[place] [address] USABasophils Auto (Bld) [#/Vol]Ordered By: PROVIDER TEMP on 07-16-2024 Basophils (Bld) [#/Vol]Automated basophil count0.0-0.2FAccess Hospital DaytonBasophils/100 WBC Auto (Bld)Ordered By: PROVIDER TEMP on 07-16-2024 Basophils/100 WBC (Bld)Automated basophil %.A[facility] Medical CenterCT angio chest PE protocolon 12-24-2575QC angio chest PE protocolASHTABULA GENER[facility] [address] [place] [address] [place] [address] CT Scan Report Signed Patient: Manolo Roche MR#: [id number] 353 : 1935 Acct:[id number] Age/Sex: 89 / M ADM Date: 07/16/24 Loc: ER Room: Type: [facility] ER Attending Dr: Copies to: Bertin Smith DO Ordering Provider: Bertin Smith DO Date of Service: 07/16/24 CT/CT angio [...] no evidence of pulmonary embolism. Mediastinum and Anma: Within normal limits. Heart: There is cardiomegaly. [...] for congestive heart failure. Impression dictated by: Sergei Valentin M.D.07/16/2024 4:48 PM Dictation Location: [place] [address] Transcribed By: ERIBERTO 07/16/24 3818 Dictated By: Sergei Valentin II, MD 07/16/24 1636 Signed By: 07/16/24 9218[facility] Physician GroupCalcium [Mass/volume] in Serum or PlasmaOrdered By: PROVIDER TEMP on 02-58-2778Xitjoqp [Mass/Vol]Calcium [Mass/volume] in Serum or Plasma8.6-10.3FAccess Hospital DaytonCarbon dioxide, total [Moles/volume] in Serum or PlasmaOrdered By: PROVIDER TEMP on 12-76-3197ZR9 [Moles/Vol]Carbon dioxide, total [Moles/volume] in Serum or Plasma 21.0-31.0A[facility]ike Medical CenterChloride [Moles/volume] in Serum or PlasmaOrdered By: PROVIDER TEMP on 02-14-2370Duaitolo [Moles/Vol]Chloride [Moles/volume] in Serum or Zlxsak92-477EgfmaqwtiAdena Pike Medical CenterComplete Blood Count Auto Diffon 33-32-6114Shvqfyasf (Bld) [#/Vol]0.1 10*3/uLNormal 0.0-0.2The [facility] Physician GroupComment on above:Result Comment: PERFORMED BY: [facility] [address] [place] [address] PATHOLOGIST MAINTENANCE MECHANIC SUPERVISOR ANDRE PERALTA M.D.Performed By: #### PT, BMP, BNP, HS TROP, CK, CBC ####[place] [address] [place] Basophils/100 WBC (Bld)0.8 %Normal.The [facility] Physician GroupComment on above:Performed By: #### PT, BMP, BNP, HS TROP, CK, CBC ####[place] [address] USAEosinophils (Bld) [#/Vol]0.2 10*3/uLNormal0.0-0.45The [facility] Physician GroupComment on above:Performed By: #### PT, BMP, BNP, HS TROP, CK, CBC ####[place] [address] USAEosinophils/100 WBC (Bld)2.7 %Normal.The [facility] Health Physician GroupComment on above:Performed By: #### PT, BMP, BNP, HS TROP, CK, CBC ####[place] [address] USAErythrocyte distribution width (RBC) [Ratio]19.9 %High12.0-14.8The [facility] Physician GroupComment on above:Performed By: #### PT, BMP, BNP, HS TROP, CK, CBC ####[place] [address] USAHematocrit (Bld) [Volume fraction]35.8 %Low38.8-50.0The [facility] Physician GroupComment on above:Performed By: #### PT, BMP, BNP, HS TROP, CK, CBC ####[address] Hemoglobin (Bld) [Mass/Vol]11.7 g/dLLow13.0-17.0The [facility] Comment on above:Performed By: #### PT, BMP, BNP, HS TROP, CK, CBC ####[place] [address] USALymphocytes (Bld) [#/Vol]1.4 10*3/uLNormal1.00-4.8The [facility] Physician GroupComment on above: Performed By: #### PT, BMP, BNP, HS TROP, CK, CBC ####[place] [address] USALymphocytes/100 WBC (Bld)18.9 %Normal .The [facility] Health Physician GroupComment on above:Performed By: #### PT, BMP, BNP, HS TROP, CK, CBC ####[address]H (RBC) [Entitic mass]25.9 pgLow27.5-35.2The [facility] Health Physician GroupComment on above:Performed By: #### PT, BMP, BNP, HS TROP, CK, CBC ####[address] StreetMCV (RBC) [Entitic vol]79.7 fLLow83.5-101The [facility] Health Physician GroupComment on above:Performed By: #### PT, BMP, BNP, HS TROP, CK, CBC ####[place] [id number] USAMean Corpuscular HGB Conc32.5 g/iMAyapsk71.5-35.6The [facility] Physician GroupComment on above:Performed By: #### PT, BMP, BNP, HS TROP, CK, CBC ####[place] [address] USAMonocytes (Bld) [#/Vol]0.9 10*3/uLHigh0.0-0.8The [facility]ham Health Physician GroupComment on above:Performed By: #### PT, BMP, BNP, HS TROP, CK, CBC ####[place] [address] USAMonocytes/100 WBC (Bld)17.82 %Normal0.00-20.00The [facility] Health Physician GroupComment on above:Result Comment: For adults in ED, MDW > 20.0 may be associated with a higher risk of sepsis during the first 12 hrs of hospital admissionPerformed By: #### PT, BMP, BNP, HS TROP, CK, CBC ####[place] [address] USAMonocytes/100 WBC (Bld)12.8 %Normal.The [facility] Health Physician GroupComment on above:Performed By: #### PT, BMP, BNP, HS TROP, CK, CBC ####[place] [address] [place] Neutrophils (Bld) [#/Vol]4.7 10*3/uLNormal1.8-7.7[facility] Comment on above:Performed By: #### PT, BMP, BNP, HS TROP, CK, CBC ####[place] [id number] USANeutrophils/100 WBC (Bld)64.8 %Normal.The [facility] Health Physician GroupComment on above:Performed By: #### PT, BMP, BNP, HS TROP, CK, CBC ####[place] [id number] USANRBC%0.2 /100{WBC}Normal0-0.5The [facility] Health Physician GroupComment on above:Performed By: #### PT, BMP, BNP, HS TROP, CK, CBC ####[address] Platelet mean volume (Bld) [Entitic vol]10.9 fLHigh6.6-10.1The [facility] Health Physician GroupComment on above:Performed By: #### PT, BMP, BNP, HS TROP, CK, CBC ####[address] Platelets (Bld) [#/Vol]210 10*3/mAXnqleh109-130Mzg [facility] Comment on above:Performed By: #### PT, BMP, BNP, HS TROP, CK, CBC ####[place] [address] USARBC (Bld) [#/Vol] 4.50 10*6/uLNormal3.90-5.60The [facility] Health Physician GroupComment on above: Performed By: #### PT, BMP, BNP, HS TROP, CK, CBC ####[place] [address] USAWBC (Bld) [#/Vol]7.2 10*3/uLNormal 4.1-10.5The [facility] Health Physician GroupComment on above:Performed By: #### PT, BMP, BNP, HS TROP, CK, CBC ####[place] [address] USACreatine Kinaseon 65-17-2340JT [Catalytic activity/Vol] 136 U/QYlialg17-365Lve [facility] Physician GroupComment on above:Performed By: #### PT, BMP, BNP, HS TROP, CK, CBC ####[place] [address] USACreatine kinase [Enzymatic activity/volume] in Serum or PlasmaOrdered By: PROVIDER TEMP on 78-92-4556WU [Catalytic activity/Vol] Creatine kinase [Enzymatic activity/volume] in Serum or Bdmdai12-842JxeqpcihrAdena Pike Medical CenterCreatinine [Mass/volume] in Serum or PlasmaOrdered By: PROVIDER TEMP on 87-24-9097Laqyhmnfpq [Mass/Vol]Creatinine [Mass/volume] in Serum or Plasma0.70-1.30A[facility] Pike Medical CenterECG 12 lead ECGon 77-86-4638KCL 12 [place] [address] Electrocardiograph Report Signed Patient: Manolo Roche MR#: [id number] 353 : 1935 Acct:[id number] Age/Sex: 89 / M ADM Date: 07/16/24 Loc: Room: [address] [place] [address] Type: ADM INOo Attending Dr: Indra Guillory MD Ordering Provider: Bertin Smith DO Date of Service: 07/16/2412/04/1411 ECG/ECG 12 lead ECG: Chest Pain Copies to: Test Reason : Blood Pressure : */* mmHG Vent. Rate : 61 BPM Atrial Rate : 61 BPM P-R Int : 116 ms QRS Dur : 96 ms QT Int : 478 ms P-R-T Axes : 70 69 255 degrees QTcB Int : 481 ms Atrial-paced rhythm Confirmed by Bertin Smith DO ([id number]) on 07/16/2024 8:00:21 PM Referred By: Electronically Signed By: Bertin Smith DO Transcribed By: MUS Signed By Bertin Smith DO [address] [place] [address] Physician GroupECG 12 lead [facility] Main [place] [id number] Electrocardiograph Report Signed Patient: Manolo Roche MR#: [id number] 353 : 1935 Acct:[id number] Age/Sex: 89 / M ADM Date: 07/16/24 Loc: 3T Room: [address] [place] [address] Type: ADM INOo Attending Dr: Indra Guillory MD Ordering Provider: Bertin Smith DO Date of Service: 07/16/2412/03/1142 ECG/ECG 12 lead ECG: Chest Pain Copies to: Test Reason : Blood Pressure : 152/72 mmHG Vent. Rate : 63 BPM Atrial Rate : 63 BPM P-R Int : 242 ms QRS Dur : 102 ms QT Int : 476 ms P-R-T Axes : 73 77 241 degrees QTcB Int : 487 ms Atrial-paced rhythm Confirmed by Bertin Smith DO ([id number]) on 07/16/2024 8:01:11 PM Referred By: Electronically Signed By: Bertin Smith DO Transcribed By: MUS Signed By Bertin Smith DO [address] [place] [address] Physician GroupEosinophils Auto (Bld) [#/Vol] Ordered By: PROVIDER TEMP on 81-85-1375Zmxqaqaanjb (Bld) [#/Vol]Automated eosinophil count0.0-0.45A[facility] Pike Medical CenterEosinophils/100 WBC Auto (Bld)Ordered By: PROVIDER TEMP on 58-63-9073Ycbezmqaiee/100 WBC (Bld) Automated eosinophil %.[facility] Medical CenterErythrocyte distribution width Auto (RBC) [Ratio]Ordered By: PROVIDER TEMP on 63-02-5748Rgkjrktphas distribution width (RBC) [Ratio]Erythrocyte distribution width [Ratio] by Automated cixxmCwvu75.0-14.8[facility] Medical CenterGlucose Glucometer (BldC) [Mass/Vol]Ordered By: Indra Guillory on 00-64-2348Xgbqfdp [Mass/Vol] Capillary blood glucose measurement by glucometer (mass/volume)[facility]ike Medical CenterComment on above:Random Glucose Reference Range is dependent on time and content of last meal. Glucose of more than 200 mg/dL in a nonstressed, ambulatory subject supports the diagnosis of Diabetes Mellitus. Glucose Poct Glucometerson 02-89-2602Kthpryd [Mass/Vol]327 mg/dLAdventHealth East Orlando Physician GroupComment on above:Result Comment: Random Glucose Reference Range is dependent on time and content of last meal. Glucose of more than 200 mg/dL in a nonstressed, ambulatory subject supports the diagnosis of Diabetes Mellitus. PERFORMED BY: [facility] [address] [place] [address] PATHOLOGIST MAINTENANCE MECHANIC SUPERVISOR MOHAMED M EL-FAKHARANY M.D.Performed By: #### GLULS #### Point of Care testing ,Glucose [Mass/volume] in Serum or PlasmaOrdered By: PROVIDER TEMP on 07-16-2024 Glucose [Mass/Vol]Glucose [Mass/volume] in Serum or VrujbsHxin97-350NlvgtidxjAdena Pike Medical CenterComment on above:ADA recommended reference rangeRandom Glucose Reference Range is dependent on time and content of last meal. Glucose of more than 200 mg/dL in a nonstressed, ambulatory subject supports the diagnosisof Diabetes Mellitus.Hematocrit Auto (Bld) [Volume fraction]Ordered By: PROVIDER TEMP on 56-12-4746Fzmizdcqwr (Bld) [Volume fraction]Hematocrit [Volume Fraction] of Blood by Automated dhvewFpw01.8-50.0A[facility] Pike Medical CenterHemoglobin [Mass/volume] in BloodOrdered By: PROVIDER TEMP on 07-16-2024 Hemoglobin (Bld) [Mass/Vol]Hemoglobin [Mass/volume] in YixhtJbh38.0-17.0 [facility] Pike Medical CenterINR in Platelet poor plasma by Coagulation assayOrdered By: PROVIDER TEMP on 89-88-3618NRY Coag (PPP) [Relative time]INR in Platelet poor plasma by Coagulation assayAdena Pike Medical Center Comment on above:INR Therapeutic Range A) Pre- and Peroperative OAT started two weeks before surgery. NOT HIP SURGERY: 1.5 - 2.5 HIP SURGERY: 2 - 3B) Primary and secondary prevention of venous THROMBOSIS: 2 - 3C) Active venous thrombosis, pulmonary embolismand prevention of recurrent venous thrombosis: 2 - 3D) Preve ntion of arterial thromboembolismincluding patients with mechanical heart valves: 3 - 4.5Leukocytes [#/volume] corrected for nucleated erythrocytes in Blood by Automated counOrdered By: PROVIDER TEMP on 25-75-2978JKY corrected for nucl RBC Auto (Bld) [#/Vol]Leukocytes [#/volume] corrected for nucleated erythrocytes in Blood by Automated coun4.1-10.5FAccess Hospital Dayton Lymphocytes Auto (Bld) [#/Vol]Ordered By: PROVIDER TEMP on 09-90-7984Snlbgtaxeli (Bld) [#/Vol]Lymphocytes [#/volume] in Blood by Automated count1.00-4.8 [facility]ike Medical CenterLymphocytes/100 WBC Auto (Bld)Ordered By: PROVIDER TEMP on 50-22-7525Wqttfxasayh/100 WBC (Bld)Lymphocytes/100 leukocytes in Blood by Automated count.[facility]ike Medical CenterMCH Auto (RBC) [Entitic mass]Ordered By: PROVIDER TEMP on 58-38-0475GUT (RBC) [Entitic mass]MCH [Entitic mass] by Automated jzdmnAgz54.5-35.2FAccess Hospital Dayton MCHC Auto (RBC) [Mass/Vol]Ordered By: PROVIDER TEMP on 17-81-1350PMFT (RBC) [Mass/Vol]MCHC [Mass/volume] by Automated count32.5-35.6FAccess Hospital DaytonMCV Auto (RBC) [Entitic vol]Ordered By: PROVIDER TEMP on 13-12-3162GBM (RBC) [Entitic vol]MCV [Entitic volume] by Automated countLow 83.5-101A[facility] Pike Medical CenterMonocyte distribution width [Entitic volume] in Blood by AutomatedOrdered By: PROVIDER TEMP on 01-70-2043Txhybcot distribution width Auto (Bld) [Entitic vol]Monocyte distribution width [Entitic volume] in Blood by Automated0.00-20.00A[facility]ike Medical CenterComment on above:For adults in ED, MDW > 20.0 may be associated with a higher risk of sepsis during the first 12 hrs of hospital admissionMonocytes Auto (Bld) [#/Vol] Ordered By: PROVIDER TEMP on 60-55-7718Sqbojlxhx (Bld) [#/Vol]Automated blood monocyte countHigh0.0-0.8A[facility]ike Medical CenterMonocytes/100 WBC Auto (Bld)Ordered By: PROVIDER TEMP on 97-49-1345Xwgkrwzba/100 WBC (Bld)Automated monocyte %.[facility] Medical CenterNatriuretic peptide B [Mass/Vol] Ordered By: PROVIDER TEMP on 54-94-0695Xwzenvxmjxm peptide B (Bld) [Mass/Vol]BNP ser/plasHigh5-100A[facility]ike Medical CenterNeutrophils Auto (Bld) [#/Vol]Ordered By: PROVIDER TEMP on 57-58-5530Hmbojvpllvu (Bld) [#/Vol] Neutrophils [#/volume] in Blood by Automated count1.8-7.7FAccess Hospital DaytonNeutrophils/100 WBC Auto (Bld)Ordered By: PROVIDER TEMP on 82-50-7189Mnltiudorrw/100 WBC (Bld)Automated neutrophil %.[facility] Medical CenterNo Panel InformationOrdered By: PROVIDER TEMP on 07-16-2024 Estimated GFR (CKD-EPI)> 60.0 mL/MinAdena Pike Medical CenterPharmacy Creatinine Clearance (Chem60.91Aden[facility] Pike Medical CenterNucleated erythrocytes [Presence] in Blood by Automated countOrdered By: PROVIDER TEMP on 06-84-6995Wjxycgkmz RBC Auto Ql (Bld)Nucleated erythrocytes [Presence] in Blood by Automated count0-0.5FAccess Hospital DaytonPlatelet mean volume Auto (Bld) [Entitic vol]Ordered By: PROVIDER TEMP on 39-49-4646Wmcvoryl mean volume (Bld) [Entitic vol]Platelet mean volume [Entitic volume] in Blood by Automated countHigh6.6-10.1FAccess Hospital DaytonPlatelets Auto (Bld) [#/Vol]Ordered By: PROVIDER TEMP on 26-37-3422Oakkzqkzg (Bld) [#/Vol]Platelets [#/volume] in Blood by Automated islcz139-847AjypljyzjAdena Pike Medical Center Potassium [Moles/volume] in Serum or PlasmaOrdered By: PROVIDER TEMP on 32-06-2944Gowsycmar [Moles/Vol]Potassium [Moles/volume] in Serum or Plasma 3.5-5.1FAccess Hospital DaytonProthrombin Time INRon 47-16-9664TPM Coag (PPP) [Relative time]1.2 {INR}NormalThe [facility]ham Health Physician GroupComment on above:Result Comment: INR Therapeutic Range A) Pre- and [...] heart valves: 3 - 4.5 PERFORMED BY: [facility] [address] PATHOLOGIST MAINTENANCE MECHANIC SUPERVISOR ANDRE PERALTA M.D.Performed By: #### PT, BMP, BNP, HS TROP, CK, CBC ####[facility] [address] [place] [address] USAPT Coag (PPP) [Time]14.3 sHigh9.0-12.9The [facility] Health Physician GroupComment on above: Result Comment: A hematocrit value greater than 55% may lead to inaccurate results in coagulation testing. Patients having hematocrit values >55% require a special collection tube for coagulation studies. Please contact the laboratory at [phone] for redraw instructions.Performed By: #### PT, BMP, BNP, HS TROP, CK, CBC ####[facility] [address] [place] [address] USAProthrombin time (PT) Ordered By: PROVIDER TEMP on 18-83-4869WW Coag (PPP) [Time]Prothrombin time (PT) High9.0-12.9A[facility]ike Medical CenterComment on above:A hematocrit value greater than 55% may lead to inaccurate results in coagulation testing. Patientshaving hematocrit values >55% require a special collection tube for coagulation studies. Please contact the laboratory at [phone] for redraw instructions.RBC Auto (Bld) [#/Vol]Ordered By: PROVIDER TEMP on 96-29-2177IRQ (Bld) [#/Vol]Erythrocytes [#/volume] in Blood by Automated count3.90-5.60 Madison Healtherum or plasma anion gap determinationOrdered By: PROVIDER TEMP on 63-29-4844Fnxet gap [Moles/Vol]Serum or plasma anion gap determination6.0-15.0Madison Healthodium [Moles/volume] in Serum or PlasmaOrdered By: PROVIDER TEMP on 27-22-1343Tsztnx [Moles/Vol]Sodium [Moles/volume] in Serum or QfptftCkr427-226NjjopyluqAdena Pike Medical Center Troponin I High Sensitivityon 91-78-4687Axcttnbm I High Wcwquxuzbsg75.4 pg/mL High0.0-20.0The [facility] Health Physician GroupComment on above:Result Comment: PERFORMED BY: [facility] [address] [place] [address] PATHOLOGIST MAINTENANCE MECHANIC SUPERVISOR ANDRE PERALTA M.D.Performed By: #### GLULS #### Point of Care testing ,Troponin I High Ktutixkxeqk73.1 pg/mLHigh0.0-20.0[facility] Comment on above:Result Comment: PERFORMED BY: [address] [address] PATHOLOGIST MAINTENANCE MECHANIC SUPERVISOR ANDRE PERALTA M.D.Performed By: #### PT, BMP, BNP, HS TROP, CK, CBC ####[facility] [place] [address] [facility] Troponin I.cardiac [Mass/volume] in Serum or Plasma by Detection limit <= 0.01 ng/Ordered By: Bertin Smith on 96-47-4126Kjfktrbk I.cardiac DL <= 0.01 ng/mL [Mass/Vol]Troponin I.cardiac [Mass/volume] in Serum or Plasma by Detection limit <= 0.01 ng/High0.0-20.0A[facility]ike Medical CenterUrea nitrogen [Mass/volume] in Serum or PlasmaOrdered By: PROVIDER TEMP on 60-93-9682Nfsg nitrogen [Mass/Vol]Urea nitrogen [Mass/volume] in Serum or Plasma7-[facility]ike Medical CenterWBC Auto (Bld) [#/Vol]Ordered By: PROVIDER TEMP on 84-93-0689SNQ (Bld) [#/Vol]Leukocytes [#/volume] in Blood by Automated count 4.1-10.5FAccess Hospital DaytonX-ray reportOrdered By: Sergei Valentin on 80-88-6762Djzte reportASHTABULA GENER[facility] Main [address] [address] XRay Report Signed Patient: Manolo Roche MR#: [id number] : 1935 Acct:[id number] Age/Sex: 89 / M ADM Date: 5 Loc: ER Room: Type: PRE ER Attending Dr: Copies to: TEMP, PROVIDER~ Ordering Provider: GLORIA DICKERSON Date of Service: [...] are redemonstrated as above. Impression dictated by: Sergei Valentin M.D.07/16/2024 1:03 PM Dictation Location: [facility]--17 Transcribed By: [facility] 07/16/24 1303 Dictated By: Sergei Valentin II, MD 07/16/24 1302 Signed By: 07/16/24 1303 [facility] Work Phone: XR chest 2V*on 25-14-5984HW chest 2V*[facility] [address] XRay Report Signed Patient: Manolo Roche MR#: [id number] 353 : 1935 Acct:[id number] Age/Sex: 89 / M ADM Date: 07/16/24 [...] are redemonstrated as above. Impression dictated by: Sergei Valentin M.D.07/16/2024 1:03 PM Dictation Location: [facility]-17 Transcribed By: ERIBERTO 07/16/24 1303 Dictated By: Sergei Valentin II, MD 07/16/24 1302 Signed By: 07/16/24 1303[facility] Physician GroupCNPNon 41-03-2951SHUDUyvriamfc (DEMBHT) MANOLO ROCHE ([id number]) 1935 M Date Time Provider Department 07/13/24 GAYE MATA During your visit today, we recorded the following information about you: Gaye Mata, KARIN 07/13/2024 4:14 PM Signed In error Allergies As of Date: 07/13/2024 (No Known Allergies) Date Reviewed: 07/06/2024 Reviewed by: Ayana Zavala APRN.UTILITY SYSTEM OPERATOR - Fully Assessed Prescriptions as of 07/13/2024 [...] 5,) crtg Change every 72 hours. - ltkyox-odjknotc-ttucqmv (CREON) 24,000-76,000 -120,000 unit cpDR Take 2 [...] *06/23/2018 Encounter Status:Closed by GAYE MATA [facility]ABETHL[facility]ann[facility] MANOLO ROCHE ([id number]) 1935 M Date Time Provider Department 07/13/24 GAYE MATAeLeann During your visit today, we recorded the following information about you: Gaye Mata RN 07/13/2024 4:11 PM Signed Called and spoke with patient and to schedule Omnipod DASH to Omnipod 5 pump upgrade. Patient states he has the new pods and is wearing the Dexcom G6 CGM. Patient was scheduled for carb counting/insulin pump training for 07/25/24 at 1-3 pm at [facility]. Location. Patient's Mychart status is PENDING, invite resent via text and to create account. Email sent to [email or web address] with clinic address, time, date, and what [...] Date Reviewed: 07/06/2024 Reviewed by: Ayana Zavala APRN.UTILITY SYSTEM OPERATOR - Fully Assessed Reason for Visit: Omnipod [...] 5,) crtg Change every 72 hours. - gtkyvh-gcwpjski-lfzewgy (CREON) 24,000-76,000 -120,000 unit cpDR Take 2 [...] *06/23/2018 Encounter Status:Closed by GAYE MATA on 07/13/24[facility] 63-97-9369WMIJVzuxft Visit (ENDOLN) FREDDYMANOLO OSBORN ([id number]) 1935 M Date Time Provider Department 07/06/24 11:00 AM AYANA ZAVALA ENDOLN During your visit today, we recorded the following information about you: Pulse Blood pressure Weight 60/minute 114/69 68.3 kg Ayana Zavala APRN.CNP 07/06/2024 12:36 PM Signed Endocrinology Initial Diabetes Assessment Manolo Roche is here for a consultation regarding: DM Type 2 My final recommendations will be communicated back to the requesting physician by way of shared Medical record or letter to requesting physician via US mail. PCP is DO Marie Rodriguez (Johny) [address] [address] History of Present Illness Manolo Roche is a 89 year old male presents today for evaluation of DM Type 1. Here with and son. 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 Per patient, this was done due to [...] (PROBIOTIC-10 ORAL) Take by mouth once daily. jegaor-ybctizrp-vrmuyyd (CREON) 24,000-76,000 -120,000 unit cpDR Take 2 capsules by mouth three times daily with meals. and 1 with snacks (8/day) Digestive Enzyme Mixtures lutein-zeaxanthin 25-5 mg cap Take by mouth once daily. Alternative Therapy - Antioxidant Omeprazole Magnesium 20 mg tablet Take 20 mg by mouth. Gastric Acid Secretion Breaker Up Machine Operator - Proton Pump Inhibitors (PPIs) PARoxetine (PAXIL) 40 mg tablet Take 40 mg by mouth every morning. Antidepressant - Selective Serotonin Reuptake Inhibitors (SSRIs) tamsulosin (FLOMAX) 0.4 mg Take 0.4 mg by mouth. Prostatic Hypertrophy Agent - pbqac-2-Lelfuclthegt Antagonists Physical Activity: No formal program Diet: CHO Controlled Diet SMBG Frequency of Monitoring: Four times a Day Summary of Personal CGM Findings: Dates worn: 06/22/24-07/05/24 CGM Type: Dexcom 1- CGM recording is adequate for interpretation. Worn 93% of (more content not included)...NormalSouthwest General Health Centeron 38-50-2088LDCAUjckptxmi (KALEY) MANOLO ROCHE ([id number]) 1935 M Date Time Provider Department 07/06/24 AYANA ZAVALA During your visit today, we recorded the following information about you: Ayana Zavala APRN.UTILITY SYSTEM OPERATOR 07/06/2024 4:09 PM Signed Please update patient [...] training. I reached out to our lead assistant manager and am waiting to hear back, but hopefully can get him set up for training in the next two weeks. Sheryl Ny MA 07/07/2024 4:31 PM Signed Called patient. No answer. [facility] to call [phone] to retrieve below message from Ayana Mckinney APRN.KALANI 07/13/2024 8:33 AM Signed Please call back patient to see how he is doing since we made adjustments to his regimen. I did reach out to the Omnipzoran link trainer mechanic at [facility] and she said she would be reaching out. I want to make sure this gets scheduled and that she was able to reach him. Buffy Arana MA 07/13/2024 4:06 PM Signed Called and spoke with patient He is doing well He stated that he just got scheduled with the link trainer mechanic today will call the office if he needs anything Ayana Zavala APRN.KALANI 07/13/2024 4:14 PM Signed Noted, thank you! Allergies As of Date: 07/06/2024 (No Known Allergies) Date Reviewed: 07/06/2024 Reviewed by: Ayana Zavala APRN.KALANI - Fully Assessed Prescriptions as [...] 5,) crtg Change every 72 hours. - ywevjo-lpucpisb-awmbbgl (CREON) 24,000-76,000 -120,000 unit cpDR Take 2 [...] *06/23/2018 Encounter Status:Closed by AYANA ZAVALA on 07/06/24[facility] ON DEMANDon 65-68-7187Vfqrbym by an unspecified provider. [facility] HospitalGLUCOSE, BLOOD (POC)on 79-40-5082Dapwxlf [Mass/Vol]76 mg/dL74 - 99 mg/dLHolzer HospitalComment on above:Location:[facility], [address] [place] [address], [address] The Accu-Chek Inform II glucose meter has [...] blood gas instrument) in the above situations. Holzer HospitalHEMOGLOBIN A1C (POC)on 24-48-9820BwP8y (Bld) [Mass fraction]10.1 %Abnormal4.3 - 5.6 %Holzer HospitalComment on above:Location:[facility], [address] [place] [address], [place], [place], [facility] Point of care (POC) Hemoglobin A1c (HGBA1C) [...] specific diabetes management situations: The POC device glassware verifier provides a normal range of 4.2% to 6.5% for the HGBA1C POC test. However, the [place] [employer] guidelines indicate that patients with [...] cell lifespan. Interpretation and review of laboratory resultsAbnormalCGalion HospitalGlucose Glucometer (BldC) [Mass/Vol]Ordered By: Sushant Cordon on 53-82-9137Ddiwkvj [Mass/Vol]Capillary blood glucose measurement by glucometer (mass/volume)[facility]tering Health TroyComment on above: Random Glucose Reference Range is dependent on time and content of last meal. Glucose of more than 200 mg/dL in a nonstressed, ambulatory subject supports the diagnosis of Diabetes Mellitus.Glucose Poct Glucometerson 03-27-9103Bgsrbuv9 NormalTrinity Community Hospital Physician GroupComment on above:Result Comment: Glu2: Will Repeat TestPerformed By: #### GLULS #### Point of Care testing ,Karon NOTIFY VadimMayo Clinic Florida Physician GroupComment on above: Performed By: #### GLULS #### Point of Care testing ,Ffyewfp4Psvdslo MeterAdventHealth East Orlando Physician GroupComment on above:Result Comment: PERFORMED BY: [address] [place] [address] PATHOLOGIST MAINTENANCE MECHANIC SUPERVISOR ANDRE PERALTA M.D.Performed By: #### GLULS #### Point of Care testing ,Glucose [Mass/Vol]572 mg/dLOff scale [facility] Physician GroupComment on above:Result Comment: Random Glucose Reference Range is dependent on time and content of last meal. Glucose of more than 200 mg/dL in a nonstressed, ambulatory subject supports the diagnosis of Diabetes Mellitus.Performed By: #### GLULS #### Point of Care testing ,Wxphkkd5HuqlrlAhe Firelands Physician GroupComment on above:Result Comment: Glu2: Will Repeat TestPerformed By: #### GLULS #### Point of Care testing ,Yierpph3ZXCA NOTIFY /DeepikaMayo Clinic Florida Physician GroupComment on above: Performed By: #### GLULS #### Point of Care testing ,Mbwlele2Vfpdlnz [facility] Physician GroupComment on above:Result Comment: PERFORMED BY: [address] [place] [address] PATHOLOGIST MAINTENANCE MECHANIC SUPERVISOR ANDRE PERALTA M.D.Performed By: #### GLULS #### Point of Care testing ,Glucose [Mass/Vol]552 mg/dLOff scale [facility] Physician GroupComment on above:Result Comment: Random Glucose Reference Range is dependent on time and content of last meal. Glucose of more than 200 mg/dL in a nonstressed, ambulatory subject supports the diagnosis of Diabetes Mellitus.Performed By: #### GLULS #### Point of Care testing ,Glucose [Mass/Vol]375 mg/dLAdventHealth East Orlando Physician GroupComment on above: Result Comment: Random Glucose Reference Range is dependent on time and content of last meal. Glucose of more than 200 mg/dL in a nonstressed, ambulatory subject supports the diagnosis of Diabetes Mellitus. PERFORMED BY: [address] [place] [address] PATHOLOGIST MAINTENANCE MECHANIC SUPERVISOR ANDRE PERALTA M.D.Performed By: #### GLULS #### Point of Care testing ,Tpwiseo3JxdjuuWmy [facility] Physician GroupComment on above:Result Comment: Glu2: Will Repeat Test PERFORMED BY: [address] [place] [address] PATHOLOGIST MAINTENANCE MECHANIC SUPERVISOR ANDRE PERALTA M.D.Performed By: #### GLULS #### Point of Care testing ,Glucose [Mass/Vol]437 mg/dLOff scale [facility] Physician GroupComment on above:Result Comment: Random Glucose Reference Range is dependent on time and content of last meal. Glucose of more than 200 mg/dL in a nonstressed, ambulatory subject supports the diagnosis of Diabetes Mellitus.Performed By: #### GLULS #### Point of Care testing ,Glucose [Mass/Vol]210 mg/dLAdventHealth East Orlando Physician GroupComment on above: Result Comment: Random Glucose Reference Range is dependent on time and content of last meal. Glucose of more than 200 mg/dL in a nonstressed, ambulatory subject supports the diagnosis of Diabetes Mellitus. PERFORMED BY: [address] [place] [id number] PATHOLOGIST MAINTENANCE MECHANIC SUPERVISOR ANDRE PERALTA M.D.Performed By: #### GLULS #### Point of Care testing ,Glucose [Mass/Vol]332 mg/dLAdventHealth East Orlando Physician GroupComment on above: Result Comment: Random Glucose Reference Range is dependent on time and content of last meal. Glucose of more than 200 mg/dL in a nonstressed, ambulatory subject supports the diagnosis of Diabetes Mellitus. PERFORMED BY: [place] [address] PATHOLOGIST MAINTENANCE MECHANIC SUPERVISOR ANDRE PERALTA M.D.Performed By: #### GLULS #### Point of Care testing ,No Panel InformationOrdered By: Sushant Cordon on 97-49-6426Cewghlr Glucose #2 CommentWill notify /[facility]ryAccess [facility] DaytonBedside Glucose #3 CommentCleaned meterAdena Pike Medical CenterBedside Glucose CommentSee commentAdena Pike Medical CenterComment on above:Glu2: Will Repeat TestAerobic Cultureon 20-26-9755Jujdaja CultureComment deep wound culture of abdominal wound ORGANISM: [...] RESISTANT TO ALL B-LACTAM DRUGS. PERFORMED BY: [address] [place] [address] PATHOLOGIST MAINTENANCE MECHANIC SUPERVISOR ANDRE KeithThe [facility] Health Physician GroupComment on above: Performed By: #### GLULS #### Point of Care testing ,Anaerobic cultureOrdered By: Stephanie Sheridan on 64-76-7982Jqevthfs identified Anaer cx Nom (Unsp spec)Anaerobic cultureAdena Pike Medical Center Bacteria identified Aer cx Nom (Unsp spec)Ordered By: Stephanie Sheridan on 97-62-1500Fhkcbmf CultureAbnoalAdena Pike Medical CenterGroup B Strep (Streptococcus agalactiae)Group B Strep (Streptococcus agalactiae)Abnormal [facility] CenterGlucose Poct Glucometerson 07-54-0983Mtpeppw [Mass/Vol]134 mg/dLNoDosher Memorial Hospital Physician GroupComment on above:Result Comment: Random Glucose Reference Range is dependent on time and content of last meal. Glucose of more than 200 mg/dL in a nonstressed, ambulatory subject supports the diagnosis of Diabetes Mellitus. PERFORMED BY: [place] [address] PATHOLOGIST MAINTENANCE MECHANIC SUPERVISOR ANDRE PERALTA M.D.Performed By: #### GLULS #### Point of Care testing ,Glucose [Mass/Vol]65 mg/dLNoDosher Memorial Hospital Physician GroupComment on above: Result Comment: Random Glucose Reference Range is dependent on time and content of last meal. Glucose of more than 200 mg/dL in a nonstressed, ambulatory subject supports the diagnosis of Diabetes Mellitus. PERFORMED BY: [place] [address] PATHOLOGIST MAINTENANCE MECHANIC SUPERVISOR ANDRE PERALTA M.D.Performed By: #### GLULS #### Point of Care testing ,Dkhuqfc4Oat7: Cleaned MeterNoDosher Memorial Hospital Physician GroupComment on above: Result Comment: PERFORMED BY: [place] [address] PATHOLOGIST MAINTENANCE MECHANIC SUPERVISOR ANDRE PERALTA M.D.Performed By: #### GLULS ####Point of Care testing, Glucose [Mass/Vol]140 mg/dLNoDosher Memorial Hospital Physician GroupComment on above: Result Comment: Random Glucose Reference Range is dependent on time and content of last meal. Glucose of more than 200 mg/dL in a nonstressed, ambulatory subject supports the diagnosis of Diabetes Mellitus.Performed By: #### GLULS ####Point of Care testing,Commemt1 Glu2: Cleaned MeterNoDosher Memorial Hospital Physician GroupComment on above:Result Comment: PERFORMED BY: [address] [place] [address] PATHOLOGIST MAINTENANCE MECHANIC SUPERVISOR ANDRE PERALTA M.D.Performed By: #### GLULS ####Point of Care testing, Glucose [Mass/Vol]200 mg/dLNoDosher Memorial Hospital Physician GroupComment on above: Result Comment: Random Glucose Reference Range is dependent on time and content of last meal. Glucose of more than 200 mg/dL in a nonstressed, ambulatory subject supports the diagnosis of Diabetes Mellitus.Performed By: #### GLULS ####Point of Care testing,Commemt1 NormalTrinity Community Hospital Physician GroupComment on above:Result Comment: Glu2: Will Repeat Test PERFORMED BY: [address] [address] PATHOLOGIST MAINTENANCE MECHANIC SUPERVISOR ANDRE PERALTA M.D.Performed By: #### GLULS #### Point of Care testing ,Glucose [Mass/Vol]425 mg/dLOff scale highTrinity Community Hospital Physician GroupComment on above:Result Comment: Random Glucose Reference Range is dependent on time and content of last meal. Glucose of more than 200 mg/dL in a nonstressed, ambulatory subject supports the diagnosis of Diabetes Mellitus.Performed By: #### GLULS #### Point of Care testing ,Gram stain microscopyOrdered By: Stephanie Sheridan on 27-73-4391Itmlmwzepuc observation Gram stain Nom (Unsp spec)Gram stain microscopyAdena Pike Medical CenterA1C with Estimated Average Gluon 07-83-8395Omruapn [Mass/Vol]255 mg/dLAdventHealth East Orlando Physician GroupComment on above:Order Comment: ADD ON PER IFEANYI - PHLEBResult Comment: PERFORMED BY: [address] [place] [address] PATHOLOGIST MAINTENANCE MECHANIC SUPERVISOR ANDRE PERALTA M.D.Performed By: #### GLULS #### Point of Care testing ,HbA1c (Bld) [Mass fraction]10.5 %High4.3-5.6The [facility] Comment on above:Order Comment: ADD ON PER IFEANYI - PHLEBResult Comment: Increased risk for diabetes: 5.7 - 6.4 diabetes: >6.4 glycemic control for adults with diabetes: <7.0Performed By: #### GLULS #### Point of Care testing ,Acanthocytes [Presence] in Blood by Light microscopyOrdered By: Sushant Cordon on 19-82-5478Wmolqgdtreen LM Ql (Bld)Acanthocytes [Presence] in Blood by Light microscopyAdena Pike Medical CenterAnisocytosis LM Ql (Bld) Ordered By: Sushant Cordon on 80-93-4273Gwueupikptkn Ql (Bld)Anisocytosis [Presence] in Blood by Light microscopyAdena Pike Medical CenterBasic Metabolic Panelon 82-18-1077Ssqfs gap [Moles/Vol]10.4 mmol/LNormal6.0-15.0The [facility] Health Physician GroupComment on above:Performed By: #### GLULS #### Point of Care testing ,Calcium [Mass/Vol]9.0 mg/dLNormal8.6-10.3The [facility] Health Physician GroupComment on above:Result Comment: PERFORMED BY: [facility] [place] [address] PATHOLOGIST MAINTENANCE MECHANIC SUPERVISOR ANDRE PERALTA M.D.Performed By: #### GLULS #### Point of Care testing ,Chloride [Moles/Vol]103 mmol/RGopaqq38-061Lqe [facility] Health Physician GroupComment on above:Performed By: #### GLULS #### Point of Care testing ,CO2 [Moles/Vol]28.0 mmol/MNactdb21.0-31.0The [facility] Health Physician GroupComment on above:Performed By: #### GLULS #### Point of Care testing ,Creatinine [Mass/Vol]0.96 mg/dLNormal0.70-1.30The [facility] Comment on above:Performed By: #### GLULS #### Point of Care testing ,GFR/1.73 sq M.predicted MDRD (S/P/Bld) [Vol rate/Area]mL/min/{1.73_m2}NormalThe [facility]ham Health Physician GroupComment on above:Performed By: #### GLULS #### Point of Care testing ,Glucose [Mass/Vol]90 mg/iOPqgmsw45-591Hxy [facility] Physician [facility] GulfportComment on above:Result Comment: Random Glucose Reference Range is dependent on time and content of last meal. Glucose of more than 200 mg/dL in a nonstressed, ambulatory subject supports the diagnosis of Diabetes Mellitus. ADA recommended reference rangePerformed By: #### GLULS #### Point of Care testing ,Potassium [Moles/Vol]4.4 mmol/LNormal3.5-5.1The [facility] Physician [facility] Comment on above:Performed By: #### GLULS #### Point of Care testing ,Sodium [Moles/Vol]137 mmol/HRtrekd908-826Lon [facility] Physician [facility] GulfportComment on above:Performed By: #### GLULS #### Point of Care testing ,Urea nitrogen [Mass/Vol]22 mg/dLNormal7-25The [facility] Health Physician GroupComment on above:Performed By: #### GLULS #### Point of Care testing ,Basophils Auto (Bld) [#/Vol]Ordered By: Sushant Cordon on 06-19-2024 Basophils (Bld) [#/Vol]Automated basophil count0.0-0.2FAccess Hospital DaytonBasophils/100 WBC Auto (Bld)Ordered By: Sushant Cordon on 09-63-6716Dxpdraclo/100 WBC (Bld)Automated basophil %.[facility] Medical CenterBlood estimated average glucose determination by estimation from glycated hemoglobinOrdered By: Sushant Cordon on 48-53-6212Hodbxtl glucose Estimated from glycated hemoglobin (Bld) [Mass/Vol]Glucose mean value [Mass/volume] in Blood Estimated from glycated hemoglobinAdena Pike Medical CenterBurr cells [Presence] in Blood by Light microscopyOrdered By: Sushant Cordon on 20-15-5706Hulg cells LM Ql (Bld)South Heart cells [Presence] in Blood by Light microscopyAdena Pike Medical CenterCalcium [Mass/volume] in Serum or PlasmaOrdered By: Sushant Cordon on 46-16-4804Cvjemal [Mass/Vol]Calcium [Mass/volume] in Serum or Plasma8.6-10.3FAccess Hospital DaytonCarbon dioxide, total [Moles/volume] in Serum or PlasmaOrdered By: Sushant Cordon on 07-49-3371KB9 [Moles/Vol]Carbon dioxide, total [Moles/volume] in Serum or Kuoorc01.0-31.0[facility] Chloride [Moles/volume] in Serum or PlasmaOrdered By: Sushant Cordon on 56-83-3528Grbbpcsj [Moles/Vol]Chloride [Moles/volume] in Serum or Rihzbd49-473 [facility] CenterCreatinine [Mass/volume] in Serum or Plasma Ordered By: Sushant Cordon on 08-62-9117Gopbjwwotm [Mass/Vol]Creatinine [Mass/volume] in Serum or Plasma0.70-1.30[facility] Eosinophils Auto (Bld) [#/Vol]Ordered By: Sushant Cordon on 06-19-2024 Eosinophils (Bld) [#/Vol]Automated eosinophil count0.0-0.45[facility] Medical CenterEosinophils/100 WBC Auto (Bld)Ordered By: Sushant Cordon on 64-98-8947Nkufsllwaqt/100 WBC (Bld)Automated eosinophil %.[facility] Medical CenterErythrocyte distribution width Auto (RBC) [Ratio]Ordered By: Sushant Cordon on 28-48-6654Qkfntaxhfdb distribution width (RBC) [Ratio] Erythrocyte distribution width [Ratio] by Automated pvokjJspn66.0-14.8[facility] Medical CenterErythrocyte morphology finding [Identifier] in Blood Ordered By: Sushant Cordon on 24-91-7270HVY morphology finding Nom (Bld) RBC morphologyAdena Pike Medical CenterGlucose Poct Glucometerson 03-09-3232Gfjlzlv [Mass/Vol]101 mg/dLNoDosher Memorial Hospital Physician GroupComment on above:Result Comment: Random Glucose Reference Range is dependent on time and content of last meal. Glucose of more than 200 mg/dL in a nonstressed, ambulatory subject supports the diagnosis of Diabetes Mellitus. PERFORMED BY: [facility] [place] [address] PATHOLOGIST MAINTENANCE MECHANIC SUPERVISOR ANDRE PERALTA M.D.Performed By: #### GLULS #### Point of Care testing ,Glucose [Mass/volume] in Serum or PlasmaOrdered By: Sushant Cordon on 88-69-2584Thxvfdj [Mass/Vol]Glucose [Mass/volume] in Serum or Rcgrji38-351 [facility] CenterComment on above:ADA recommended reference rangeRandom Glucose Reference Range is dependent on time and content of last meal. Glucose of more than 200 mg/dL in a nonstressed, ambulatory subject supports the diagnosisof Diabetes Mellitus.Hematocrit Auto (Bld) [Volume fraction]Ordered By: Sushant Cordon on 84-06-0199Poddizotod (Bld) [Volume fraction]Hematocrit [Volume Fraction] of Blood by Automated wyggqMwh47.8-50.0 [facility] CenterHemoglobin A1c/Hemoglobin.total in BloodOrdered By: Sushant Cordon on 51-01-4573CpQ3g (Bld) [Mass fraction]Hemoglobin A1c percentageHigh4.3-5.6FAccess Hospital DaytonComment on above:Increased risk for diabetes: 5.7 - 6.4diabetes: >6.4glycemic control for adults with diabetes: <7.0Hemoglobin [Mass/volume] in BloodOrdered By: Sushant Cordon on 12-49-2261Sdogwfzist (Bld) [Mass/Vol]Hemoglobin [Mass/volume] in JhgftOvx12.0-17.0[facility] Medical CenterHypochromia LM Ql (Bld)Ordered By: Sushant Cordon on 86-33-6262Gcsgfywjpjz Ql (Bld)Hypochromia [Presence] in Blood by Light microscopyAdena Pike Medical CenterINR in Platelet poor plasma by Coagulation assayOrdered By: Sushant Cordon on 65-51-0357SVH Coag (PPP) [Relative time]INR in Platelet poor plasma by Coagulation assayAdena Pike Medical CenterComment on above:INR Therapeutic Range A) Pre- and Peroperative OAT started two weeks before surgery. NOT HIP SURGERY: 1.5 - 2.5 HIP SURGERY: 2 - 3B) Primary and secondary prevention of venous THROMBOSIS: 2 - 3C) Active venous thrombosis, pulmonary embolismand prevention of recurrent venous thrombosis: 2 - 3D) Prevention of arterial thromboembolismincluding patients with mechanical heart valves: 3 - 4.5 Leukocytes [#/volume] corrected for nucleated erythrocytes in Blood by Automated counOrdered By: Sushant Cordon on 82-27-0380MEK corrected for nucl RBC Auto (Bld) [#/Vol]Leukocytes [#/volume] corrected for nucleated erythrocytes in Blood by Automated coun4.1-10.5FAccess Hospital DaytonLymphocytes Auto (Bld) [#/Vol]Ordered By: Sushant Cordon on 90-99-9046Qezvubhexzz (Bld) [#/Vol]Lymphocytes [#/volume] in Blood by Automated count1.00-4.8A[facility] Medical CenterLymphocytes/100 WBC Auto (Bld)Ordered By: Sushant Cordon on 23-78-6163Nbfgawzakue/100 WBC (Bld)Lymphocytes/100 leukocytes in Blood by Automated count.[facility] MemorialH Auto (RBC) [Entitic mass]Ordered By: Sushant Cordon on 75-26-3058XLP (RBC) [Entitic mass]MCH [Entitic mass] by Automated csvtjKux54.5-35.2FAccess Hospital DaytonMCHC Auto (RBC) [Mass/Vol]Ordered By: Sushant Cordon on 06-19-2024 MCHC (RBC) [Mass/Vol]MCHC [Mass/volume] by Automated count32.5-35.6FWexner Medical CenterV Auto (RBC) [Entitic vol]Ordered By: Sushant Cordon on 67-41-5717TZK (RBC) [Entitic vol]MCV [Entitic volume] by Automated ahszaWac39.5-101[facility] Medical CenterMacrocytes LM Ql (Bld)Ordered By: Sushant Cordon on 26-86-8197Uesslqsoso Ql (Bld)Macrocytes [Presence] in Blood by Light microscopyAdena Pike Medical CenterMicrocytes LM Ql (Bld)Ordered By: Sushant Cordon on 57-70-6198Dxvvsjbefm Ql (Bld)Microcytes [Presence] in Blood by Light microscopyAdena Pike Medical Center Monocytes Auto (Bld) [#/Vol]Ordered By: Sushant Cordon on 06-19-2024 Monocytes (Bld) [#/Vol]Automated blood monocyte count0.0-0.8[facility] Medical CenterMonocytes/100 WBC Auto (Bld)Ordered By: Sushant Cordon on 88-93-4108Xlvqqzqvx/100 WBC (Bld)Automated monocyte %.[facility] Medical CenterNeutrophils Auto (Bld) [#/Vol]Ordered By: Sushant Cordon on 27-86-7159Osstytgfywu (Bld) [#/Vol]Neutrophils [#/volume] in Blood by Automated count1.8-7.7FAccess Hospital DaytonNeutrophils/100 WBC Auto (Bld) Ordered By: Sushant Cordon on 75-82-9578Tqoidwkgzzw/100 WBC (Bld)Automated neutrophil %.[facility] CenterNo Panel InformationOrdered By: Sushant Cordon on 83-20-5119Xvxnfyqdi GFR (CKD-EPI)> 60.0 mL/MinAdena Pike Medical CenterPharmacy Creatinine Clearance (ChemN/AFAccess Hospital DaytonNucleated erythrocytes [Presence] in Blood by Automated count Ordered By: Sushant Cordon on 12-98-7587Qezwtjqld RBC Auto Ql (Bld) Nucleated erythrocytes [Presence] in Blood by Automated count0-0.5FAccess Hospital DaytonOvalocytes [Presence] in Blood by Light microscopyOrdered By: Sushant Cordon on 47-18-8489Wisrjdhbtg LM Ql (Bld)Ovalocyte detection [facility] CenterPartial Thromboplastin Timeon 12-22-2327pXBT Coag (Bld) [Time]29.4 oDprspp51.1-36.5The [facility] Health Physician GroupComment on above:Result Comment: A hematocrit value greater than 55% may lead to inaccurate results in coagulation testing. Patients having hematocrit values >55% require a special collection tube for coagulation studies. Please contact the laboratory at [phone] for redraw instructions. PERFORMED BY: [facility] [address] [place] [address] PATHOLOGIST MAINTENANCE MECHANIC SUPERVISOR ANDRE PERALTA M.D.Performed By: #### GLULS #### Point of Care testing ,Platelet adequacy [Presence] in Blood by Light microscopyOrdered By: Sushant Cordon on 17-15-2635Hnvhzrqis LM Ql (Bld)Platelet adequacy [Presence] in Blood by Light microscopyProMedica Defiance Regional HospitalPlatelet mean volume Auto (Bld) [Entitic vol]Ordered By: Sushant Cordon on 06-19-2024 Platelet mean volume (Bld) [Entitic vol]Platelet mean volume [Entitic volume] in Blood by Automated count6.6-10.1FAccess Hospital DaytonPlatelet morphology finding [Identifier] in BloodOrdered By: Sushant Cordon on 99-21-3872Xffzlukq morphology finding Nom (Bld)Platelet morphology finding [Identifier] in BloodNoMercy Health Kings Mills HospitalPlatelets Auto (Bld) [#/Vol]Ordered By: Sushant Cordon on 99-78-5774Jkiiaqutu (Bld) [#/Vol] Platelets [#/volume] in Blood by Automated iprck303-611EzcgupbrlAdena Pike Medical CenterPoikilocytosis [Presence] in Blood by Light microscopyOrdered By: Sushant Cordon on 72-15-6785Iyqzfmzebqttqo LM Ql (Bld)Poikilocytosis [Presence] in Blood by Light microscopyAdena Pike Medical Center Potassium [Moles/volume] in Serum or PlasmaOrdered By: Sushant Cordon on 31-04-7393Ibuohhflz [Moles/Vol]Potassium [Moles/volume] in Serum or Plasma 3.5-5.1FAccess Hospital DaytonProthrombin Time INRon 81-99-3548PKT Coag (PPP) [Relative time]1.1 {INR}NormalThe [facility] Health Physician GroupComment on above:Result Comment: INR Therapeutic Range A) Pre- and [...] patients with mechanical heart valves: 3 - 4.5Performed By: #### GLULS #### Point of Care testing ,PT Coag (PPP) [Time]12.9 sNormal9.0-12.9The [facility] Health Physician GroupComment on above:Result Comment: A hematocrit value greater than 55% may lead to inaccurate results in coagulation testing. Patients having hematocrit values >55% require a special collection tube for coagulation studies. Please contact the laboratory at [phone] for redraw instructions.Performed By: #### GLULS #### Point of Care testing ,Prothrombin time (PT)Ordered By: Sushant Cordon on 61-47-4651TS Coag (PPP) [Time]Prothrombin time (PT)9.0-12.9[facility] Comment on above:A hematocrit value greater than 55% may lead to inaccurate results in coagulation testing. Patientshaving hematocrit values >55% require a special collection tube for coagulation studies. Please contact the laboratory at [phone] for redraw instructions.RBC Auto (Bld) [#/Vol]Ordered By: Sushant Cordon on 65-89-0600VIF (Bld) [#/Vol]Erythrocytes [#/volume] in Blood by Automated count3.90-5.60Mad[facility] Healthcan and CBCon 25-48-6215BzgmysarvpjvHywvzgvpJvfscbNbk [facility]lands Physician GroupComment on above:Performed By: #### GLULS #### Point of Care testing ,Anisocytosis Ql (Bld)ModerateNoCity HospitalComment on above:Performed By: #### GLULS #### Point of Care testing ,Basophils (Bld) [#/Vol]0.1 10*3/uLNormal0.0-0.2The [facility] Comment on above:Result Comment: PERFORMED BY: [facility] [place] [address] PATHOLOGIST MAINTENANCE MECHANIC SUPERVISOR ANDRE PERALTA M.D.Performed By: #### GLULS #### Point of Care testing ,Basophils/100 WBC (Bld)1.8 %Normal.The [facility] Physician GroupComment on above:Performed By: #### GLULS #### Point of Care testing ,Crenated RBCSlightNoDosher Memorial Hospital Physician GroupComment on above:Performed By: #### GLULS #### Point of Care testing ,Eosinophils (Bld) [#/Vol]0.1 10*3/uLNormal0.0-0.45The [facility] Physician [facility] [place] [facility] Comment on above:Performed By: #### GLULS #### Point of Care testing ,Eosinophils/100 WBC (Bld)1.3 %Normal.The [facility] Health Physician GroupComment on above:Performed By: #### GLULS #### Point of Care testing ,Erythrocyte distribution width (RBC) [Ratio]20.5 %High12.0-14.8The [facility] Health Physician GroupComment on above:Performed By: #### GLULS #### Point of Care testing ,Hematocrit (Bld) [Volume fraction]34.1 %Low38.8-50.0The [facility] Health Physician GroupComment on above:Performed By: #### GLULS #### Point of Care testing ,Hemoglobin (Bld) [Mass/Vol]11.3 g/dLLow13.0-17.0The [facility] Comment on above:Performed By: #### GLULS #### Point of Care testing ,HypochromasiaModerateAdventHealth East Orlando Physician GroupComment on above: Performed By: #### GLULS #### Point of Care testing ,Lymphocytes (Bld) [#/Vol]3.5 10*3/uLNormal1.00-4.8The [facility] Comment on above:Performed By: #### GLULS #### Point of Care testing ,Lymphocytes/100 WBC (Bld)44.3 %Normal.The [facility] Health Physician GroupComment on above:Performed By: #### GLULS #### Point of Care testing ,MacrocytosisSAtrium Health Physician GroupComment on above:Performed By: #### GLULS #### Point of Care testing ,MCH (RBC) [Entitic mass]25.5 pgLow27.5-35.2The [facility] Physician GroupComment on above:Performed By: #### GLULS #### Point of Care testing ,MCV (RBC) [Entitic vol]76.9 fLLow83.5-101The [facility] Health Physician GroupComment on above:Performed By: #### GLULS #### Point of Care testing ,Mean Corpuscular HGB Conc33.2 g/kBQyxlhc11.5-35.6The [facility] Physician [facility] Comment on above:Performed By: #### GLULS #### Point of Care testing ,MicrocytosisSAtrium Health Physician GroupComment on above:Performed By: #### GLULS #### Point of Care testing ,Monocytes (Bld) [#/Vol]0.6 10*3/uLNormal0.0-0.8The [facility] Physician [facility] [place] [facility] Comment on above:Performed By: #### GLULS #### Point of Care testing ,Monocytes/100 WBC (Bld)7.0 %Normal.The [facility] Health Physician GroupComment on above:Performed By: #### GLULS #### Point of Care testing ,Neutrophils (Bld) [#/Vol]3.6 10*3/uLNormal1.8-7.7The [facility] Physician [facility] [place] [facility] Comment on above:Performed By: #### GLULS #### Point of Care testing ,Neutrophils/100 WBC (Bld)45.6 %Normal.The [facility] Health Physician GroupComment on above:Performed By: #### GLULS #### Point of Care testing ,NRBC%0.1 /100{WBC}Normal0-0.5The [facility] Physician GroupComment on above: Performed By: #### GLULS #### Point of Care testing ,OvalocytesSlightNoDosher Memorial Hospital Physician GroupComment on above:Performed By: #### GLULS #### Point of Care testing ,Platelet EstimateNormalNormalNormMayo Clinic Florida Physician GroupComment on above:Performed By: #### GLULS #### Point of Care testing ,Platelet mean volume (Bld) [Entitic vol]9.8 fLNormal6.6-10.1The [facility] Physician GroupComment on above:Performed By: #### GLULS #### Point of Care testing ,Platelet MorphologyNormalNormalNoDosher Memorial Hospital Physician GroupComment on above:Result Comment: PERFORMED BY: [facility] [place] [address] PATHOLOGIST MAINTENANCE MECHANIC SUPERVISOR ANDRE PERALTA M.D.Performed By: #### GLULS #### Point of Care testing ,Platelets (Bld) [#/Vol]243 10*3/pTXzlvvv921-677Xgg [facility] Comment on above:Performed By: #### GLULS #### Point of Care testing ,PoikilocytosisModerateNoDosher Memorial Hospital Physician GroupComment on above: Performed By: #### GLULS #### Point of Care testing ,RBC (Bld) [#/Vol]4.43 10*6/uLNormal3.90-5.60The [facility]ician [facility] [facility] Comment on above:Performed By: #### GLULS #### Point of Care testing ,SchistocytesSlightAdventHealth East Orlando Physician GroupComment on above:Performed By: #### GLULS #### Point of Care testing ,Target CellsSlightAdventHealth East Orlando Physician GroupComment on above:Performed By: #### GLULS #### Point of Care testing ,WBC (Bld) [#/Vol]7.9 10*3/uLNormal4.1-10.5The [facility] Physician GroupComment on above:Performed By: #### GLULS #### Point of Care testing ,Schistocytes [Presence] in Blood by Light microscopyOrdered By: Sushant Corodn on 56-66-8216Pmhtjapazpqa LM Ql (Bld)Schistocytes [Presence] in Blood by Light microscopyMadison Healtherum or plasma anion gap determinationOrdered By: Sushant Cordon on 21-06-5959Uvpip gap [Moles/Vol] Serum or plasma anion gap determination6.0-15.0[facility] Sodium [Moles/volume] in Serum or PlasmaOrdered By: Sushant Cordon on 78-78-3908Ounelj [Moles/Vol]Sodium [Moles/volume] in Serum or Oeoroy023-554 [facility] CenterTarget cells [Presence] in Blood by Light microscopyOrdered By: Sushant Cordon on 95-94-3245Iiktws cells LM Ql (Bld) Target cellsAdena Pike Medical CenterUrea nitrogen [Mass/volume] in Serum or PlasmaOrdered By: Sushant Cordon on 90-96-9044Niwm nitrogen [Mass/Vol]Urea nitrogen [Mass/volume] in Serum or Plasma7-25A[facility] Medical CenterWBC Auto (Bld) [#/Vol]Ordered By: Sushant Cordon on 12-34-8662XHC (Bld) [#/Vol]Leukocytes [#/volume] in Blood by Automated count 4.1-10.5FAccess Hospital DaytonaPTT in Platelet poor plasma by Coagulation assayOrdered By: Sushant Cordon on 64-17-6354wWWO Coag (PPP) [Time]Activated partial thromboplastin time (aPTT) in platelet poor plasma by coagulation a25.1-36.5FAccess Hospital DaytonComment on above:A hematocrit value greater than 55% may lead to inaccurate results in coagulation testing. Patientshaving hematocrit values >55% require a special collection tube for coagulation studies. Please contact the laboratory at [phone] for redraw instructions.Acanthocytes [Presence] in Blood by Light microscopyOrdered By: Jose Alfredo Brantley on 15-33-9361Ijquulgaetjo LM Ql (Bld)Acanthocytes [Presence] in Blood by Light microscopyAdena Pike Medical CenterAlanine aminotransferase [Enzymatic activity/volume] in Serum or PlasmaOrdered By: Jose Alfredo Brantley on 04-79-3970QOS [Catalytic activity/Vol]Alanine aminotransferase [Enzymatic activity/volume] in Serum or Plasma7-52[facility] Medical CenterAlbumin [Mass/volume] in Serum or Plasma by Bromocresol green (BCG) dye binding methoOrdered By: Jose Alfredo Brantley on 17-82-8294Jhghtgo BCG dye [Mass/Vol] Albumin [Mass/volume] in Serum or Plasma by Bromocresol green (BCG) dye binding methoLow3.5-5.7FAccess Hospital DaytonAlkaline phosphatase [Enzymatic activity/volume] in Serum or PlasmaOrdered By: Jose Alfredo Brantley on 85-72-2027CNT [Catalytic activity/Vol]Alkaline phosphatase [Enzymatic activity/volume] in Serum or BttopgXkdg80-933XsnxsusbvAdena Pike Medical CenterAnisocytosis LM Ql (Bld)Ordered By: Jose Alfredo Brantley on 10-33-0705Sqnsafbvdaoh Ql (Bld)Anisocytosis [Presence] in Blood by Light microscopyAdena Pike Medical Center Aspartate aminotransferase [Enzymatic activity/volume] in Serum or PlasmaOrdered By: Jose Alfredo Brantley on 86-04-8930EKI [Catalytic activity/Vol]Aspartate aminotransferase [Enzymatic activity/volume] in Serum or Cxfftk77-10VelgbztlbAdena Pike Medical CenterBasophils Auto (Bld) [#/Vol]Ordered By: Jose Alfredo Brantley on 01-83-4773Nouoxswrj (Bld) [#/Vol]Automated basophil countAdena Pike Medical CenterBasophils/100 WBC Auto (Bld)Ordered By: Jose Alfredo Brantley on 06-18-2024 Basophils/100 WBC (Bld)Automated basophil %[facility] Bilirubin.total [Mass/volume] in Serum or PlasmaOrdered By: Jose Alfredo Brantley on 37-05-2299Zleibubwd [Mass/Vol]Bilirubin.total [Mass/volume] in Serum or Plasma 0.3-1.0[facility] Medical CenterBurr cells [Presence] in Blood by Light microscopyOrdered By: Jose Alfredo Brantley on 58-20-6502Ichd cells LM Ql (Bld)South Heart cells [Presence] in Blood by Light microscopyAdena Pike Medical CenterCalcium [Mass/volume] in Serum or PlasmaOrdered By: Jose Alfredo Brantley on 42-08-2682Dzurmgv [Mass/Vol]Calcium [Mass/volume] in Serum or Plasma8.6-10.3FAccess Hospital DaytonCarbon dioxide, total [Moles/volume] in Serum or PlasmaOrdered By: Jose Alfredo Brantley on 68-71-4505NE6 [Moles/Vol]Carbon dioxide, total [Moles/volume] in Serum or Pbelkc17.0-31.0[facility] Medical CenterChloride [Moles/volume] in Serum or PlasmaOrdered By: Jose Alfredo Brantley on 15-66-1985Icuaqtfw [Moles/Vol]Chloride [Moles/volume] in Serum or Zyldik19-598OwecrygpjAdena Pike Medical CenterComprehensive Metabolic Panelon 04-37-0710Lrkitii [Mass/Vol]3.4 g/dLLow3.5-5.7The [facility] Physician GroupComment on above:Performed By: #### DIFF CBC, CMP ####[place] [address] USAAlbumin/Globulin [Mass ratio]1.1 {ratio}NormalThe [facility] Physician [facility] GulfportComment on above:Performed By: #### DIFF CBC, CMP ####[place] [id number] USAALP [Catalytic activity/Vol] 109 U/GNirw00-502Eed [facility] Physician GroupComment on above:Performed By: #### DIFF CBC, CMP ####[place] [id number] USAALT [Catalytic activity/Vol]14 U/LNormal7-52The [facility] GroupComment on above:Performed By: #### DIFF CBC, CMP ####[place] [id number] USAAnion gap [Moles/Vol]11.4 mmol/LNormal6.0-15.0The [facility] Physician GroupComment on above:Performed By: #### DIFF CBC, CMP ####[place] [id number] USAAST [Catalytic activity/Vol]21 U/NPnomux36-66Hbl [facility] Physician [facility] [facility] GulfportComment on above:Performed By: #### DIFF CBC, CMP ####[place] [address] USABilirubin [Mass/Vol]0.4 mg/dL Normal0.3-1.0The [facility] Physician [facility] [facility] GulfportComment on above:Performed By: #### DIFF CBC, CMP ####[place] [address] USACalcium [Mass/Vol]8.7 mg/dLNormal8.6-10.3The [facility] Comment on above:Performed By: #### DIFF CBC, CMP ####[place] [address] USAChloride [Moles/Vol]102 mmol/LNormal 98-107The [facility] Physician [facility] GulfportComment on above:Performed By: #### DIFF CBC, CMP ####[place] [address] [place] CO2 [Moles/Vol]27.6 mmol/OScbqqu97.0-31.0The [facility] Health Physician GroupComment on above:Performed By: #### DIFF CBC, CMP ####[place] [address] USACreatinine [Mass/Vol]0.96 mg/dLNormal0.70-1.30 The [facility] Health Physician GroupComment on above:Performed By: #### DIFF CBC, CMP ####[place] [address] [place] Creatinine Clr Calc Dhmwwmyx25.22NormalThe [facility] Physician [place] [facility] GulfportComment on above:Result Comment: PERFORMED BY: [facility] [address] [place] [id number] PATHOLOGIST MAINTENANCE MECHANIC SUPERVISOR ANDRE PERALTA M.D.Performed By: #### DIFF CBC, CMP ####[place] [address] USAGFR/1.73 sq M.predicted MDRD (S/P/Bld) [Vol rate/Area]mL/min/{1.73_m2}NormalThe [facility] Health Physician GroupComment on above:Performed By: #### DIFF CBC, CMP ####[place] [id number] USAGlobulin (S) [Mass/Vol]3.0 g/dLNormalThe [facility] Health Physician GroupComment on above:Performed By: #### DIFF CBC, CMP ####[place] [address] USAGlucose [Mass/Vol]85 mg/cGYbrqcv67-178Raz [facility] Physician GroupComment on above:Result Comment: Random Glucose Reference Range is dependent on time and content of last meal. Glucose of more than 200 mg/dL in a nonstressed, ambulatory subject supports the diagnosis of Diabetes Mellitus. ADA recommended reference rangePerformed By: #### DIFF CBC, CMP ####[place] [id number] USAPotassium [Moles/Vol] 4.0 mmol/LNormal3.5-5.1The [facility] Physician GroupComment on above:Performed By: #### DIFF CBC, CMP ####[place] [id number] USAProtein [Mass/Vol]6.4 g/dLNormal6.4-8.9The [facility] Health Physician GroupComment on above:Performed By: #### DIFF CBC, CMP ####[place] [id number] USASodium [Moles/Vol]137 mmol/SAygkvg127-111Fwr [facility] Physician GroupComment on above:Performed By: #### DIFF CBC, CMP ####[place] [id number] USAUrea nitrogen [Mass/Vol]21 mg/dLNormal7-25The [facility] Health Physician GroupComment on above:Performed By: #### DIFF CBC, CMP ####[place] [id number] USACreatinine [Mass/volume] in Serum or PlasmaOrdered By: Jose Alfredo Brantley on 38-11-4724Kfqinfqwjj [Mass/Vol] Creatinine [Mass/volume] in Serum or Plasma0.70-1.30A[facility] Medical CenterDiff and CBCon 22-42-1152FohhtweimwsgShjrkrMrgozgMuv Firelands Physician GroupComment on above:Performed By: #### DIFF CBC, CMP ####[address] [address] USAAnisocytosis Ql (Bld)Marked NormalThe [facility] Health Physician GroupComment on above:Performed By: #### DIFF CBC, CMP ####[address] [address] [place] Crenated RBCModerateNoDosher Memorial Hospital Physician GroupComment on above: Performed By: #### DIFF CBC, CMP ####[address] [address] USAEosinophils/100 WBC (Bld)4 %High1-3The [facility] Physician GroupComment on above:Performed By: #### DIFF CBC, CMP ####[address] [address] USAErythrocyte distribution width (RBC) [Ratio]20.2 %High12.0-14.8The [facility] Comment on above:Performed By: #### DIFF CBC, CMP ####[address] [address] USAHematocrit (Bld) [Volume fraction] 35.5 %Low38.8-50.0The [facility] Health Physician GroupComment on above:Performed By: #### DIFF CBC, CMP ####[address] [address] USAHemoglobin (Bld) [Mass/Vol]11.8 g/dLLow13.0-17.0The [facility] Health Physician GroupComment on above:Performed By: #### DIFF CBC, CMP ####[address] [address] USAHypochromasiaSlight NormalTrinity Community Hospital Physician [place] GulfportComment on above:Performed By: #### DIFF CBC, CMP ####[address] [place] [address] [place] Large PlateletsSAtrium Health Physician GroupComment on above:Result Comment: PERFORMED BY: [facility] [address] [place] [phone] PATHOLOGIST MAINTENANCE MECHANIC SUPERVISOR ANDRE PERALTA M.D.Performed By: #### DIFF CBC, CMP ####[place] [id number] USALymphocytes/100 WBC (Bld)15 %Ahk14-49Npz [facility] Physician GroupComment on above:Performed By: #### DIFF CBC, CMP ####[place] [id number] USAMacrocytosisSAtrium Health Physician GroupComment on above:Performed By: #### DIFF CBC, CMP ####[address] StreetH (RBC) [Entitic mass]25.6 pgLow27.5-35.2The [facility] Health Physician GroupComment on above:Performed By: #### DIFF CBC, CMP ####[place] [id number] [facility] [place]AV (RBC) [Entitic vol]76.7 fLLow83.5-101The [facility] Health Physician GroupComment on above:Performed By: #### DIFF CBC, CMP ####[place] [address] USAMean Corpuscular HGB Conc33.3 g/dLNormal 32.5-35.6The [facility] Physician GroupComment on above:Performed By: #### DIFF CBC, CMP ####[place] [id number] USAMicrocytosisSAtrium Health Physician GroupComment on above: Performed By: #### DIFF CBC, CMP ####[place] [id number] USAMonocytes/100 WBC (Bld)12 %High2-11The [facility] Physician GroupComment on above:Performed By: #### DIFF CBC, CMP ####[address] [address] USAPlatelet Estimate NormalNormalNormMayo Clinic Florida Physician GroupComment on above:Performed By: #### DIFF CBC, CMP ####[address] [address] USAPlatelet mean volume (Bld) [Entitic vol]10.1 fLNormal6.6-10.1The [facility] Health Physician GroupComment on above:Performed By: #### DIFF CBC, CMP ####[address] [address] [place] Platelets (Bld) [#/Vol]239 10*3/eWXpepxw290-606Bzk [facility] Comment on above:Performed By: #### DIFF CBC, CMP ####[address] [address] USAPoikilocytosisMarkedAdventHealth East Orlando Physician GroupComment on above:Performed By: #### DIFF CBC, CMP ####[address] [address] [place] PolychromasiaSlightNoDosher Memorial Hospital Physician GroupComment on above:Performed By: #### DIFF CBC, CMP ####[address] [address] USARBC (Bld) [#/Vol]4.63 10*6/uLNormal3.90-5.60The [facility] Health Physician GroupComment on above:Performed By: #### DIFF CBC, CMP ####[address] [address] [place] SchistocytesModerateAdventHealth East Orlando Physician GroupComment on above: Performed By: #### DIFF CBC, CMP ####[address] [address] USASegmented neutrophils/100 WBC (Bld)69 %Gobucj96-07 The [facility] Health Physician GroupComment on above:Performed By: #### DIFF CBC, CMP ####[address] [address] USATarget CellsModerateNormalThe [facility] Health Physician GroupComment on above:Performed By: #### DIFF CBC, CMP ####[facility] [address] [place] [address] USAWBC (Bld) [#/Vol]7.3 10*3/uLNormal4.1-10.5The [facility] Physician GroupComment on above:Performed By: #### DIFF CBC, CMP ####[facility] [address] [place] [address] USAEosinophils Auto (Bld) [#/Vol] Ordered By: Jose Alfredo Brantley on 56-64-9577Hfqsdwshxlb (Bld) [#/Vol]Automated eosinophil countAdena Pike Medical CenterEosinophils/100 WBC Auto (Bld) Ordered By: Jose Alfredo Brantley on 49-04-6517Btsxabamwav/100 WBC (Bld)Automated eosinophil %[facility] Medical CenterEosinophils/100 WBC Manual cnt (Bld)Ordered By: Jose Alfredo Brantley on 21-59-7403Szskmclrqsu/100 WBC (Bld) Eosinophils/100 leukocytes in Blood by Manual countHigh1-3FAccess Hospital DaytonErythrocyte distribution width Auto (RBC) [Ratio]Ordered By: Jose Alfredo Brantley on 15-48-8639Gtukufrhgru distribution width (RBC) [Ratio]Erythrocyte distribution width [Ratio] by Automated cpexhLrss86.0-14.8A[facility]ike Medical CenterErythrocyte morphology finding [Identifier] in BloodOrdered By: Jose Alfredo Brantley on 08-13-5254DOR morphology finding Nom (Bld)RBC morphologyAdena Pike Medical CenterGlobulin Calc (S) [Mass/Vol]Ordered By: Jose Alfredo Brantley on 43-06-9069Nlladalo (S) [Mass/Vol]Serum globulin measurement by calculation (mass/volume)A[facility] Medical CenterGlucose Glucometer (BldC) [Mass/Vol]Ordered By: Jose Alfredo Brantley on 24-70-6073Mxndebb [Mass/Vol]Capillary blood glucose measurement by glucometer (mass/volume)[facility] Medical CenterComment on above:Random Glucose Reference Range is dependent on time and content of last meal. Glucose of more than 200 mg/dL in a nonstressed, ambulatory subject supports the diagnosis of Diabetes Mellitus.Glucose Poct Glucometerson 41-87-1490Rlsdzyr [Mass/Vol]386 mg/dLAdventHealth East Orlando GroupComment on above:Result Comment: Random Glucose Reference Range is dependent on time and content of last meal. Glucose of more than 200 mg/dL in a nonstressed, ambulatory subject supports the diagnosis of Diabetes Mellitus. PERFORMED BY: [address] [place] [address] PATHOLOGIST MAINTENANCE MECHANIC SUPERVISOR ANDRE PERALTA M.D.Performed By: #### GLULS #### Point of Care testing ,Xxardwq7JcnzuxBnk[address] Physician GroupComment on above:Result Comment: Glu2: Will Repeat TestPerformed By: #### GLULS #### Point of Care testing ,Mencjrb8RPRK NOTIFY /KyleDosher Memorial Hospital Physician GroupComment on above: Result Comment: PERFORMED BY: [address] [place] [id number] PATHOLOGIST MAINTENANCE MECHANIC SUPERVISOR ANDRE PERALTA M.D.Performed By: #### GLULS #### Point of Care testing ,Glucose [Mass/Vol]417 mg/dLOff scale [facility] Physician GroupComment on above:Result Comment: Random Glucose Reference Range is dependent on time and content of last meal. Glucose of more than 200 mg/dL in a nonstressed, ambulatory subject supports the diagnosis of Diabetes Mellitus.Performed By: #### GLULS #### Point of Care testing ,Dnddpvh7NqvtxsKlf[address] Physician Compranay on above:Result Comment: Glu2: Will Repeat Test PERFORMED BY: [address] [place] [id number] PATHOLOGIST MAINTENANCE MECHANIC SUPERVISOR ANDRE PERALTA M.D.Performed By: #### GLULS #### Point of Care testing ,Glucose [Mass/Vol]483 mg/dLOff scale [facility] Physician GroupComment on above:Result Comment: Random Glucose Reference Range is dependent on time and content of last meal. Glucose of more than 200 mg/dL in a nonstressed, ambulatory subject supports the diagnosis of Diabetes Mellitus.Performed By: #### GLULS #### Point of Care testing ,Glucose [Mass/Vol]393 mg/dLAdventHealth East Orlando Physician GroupComment on above: Result Comment: Random Glucose Reference Range is dependent on time and content of last meal. Glucose of more than 200 mg/dL in a nonstressed, ambulatory subject supports the diagnosis of Diabetes Mellitus. PERFORMED BY: [address] [address] PATHOLOGIST MAINTENANCE MECHANIC SUPERVISOR ANDRE PERALTA M.D.Performed By: #### GLULS #### Point of Care testing ,Glucose [Mass/Vol]85 mg/dLAdventHealth East Orlando Physician GroupComment on above: Result Comment: Random Glucose Reference Range is dependent on time and content of last meal. Glucose of more than 200 mg/dL in a nonstressed, ambulatory subject supports the diagnosis of Diabetes Mellitus. PERFORMED BY: [facility] [address] [place] [address] PATHOLOGIST MAINTENANCE MECHANIC SUPERVISOR ANDRE PERALTA M.D.Performed By: #### GLULS #### Point of Care testing ,Glucose [Mass/volume] in Serum or PlasmaOrdered By: Jose Alfredo Brantley on 06-18-2024 Glucose [Mass/Vol]Glucose [Mass/volume] in Serum or Wryury47-838GploljdzwAdena Pike Medical CenterComment on above:ADA recommended reference rangeRandom Glucose Reference Range is dependent on time and content of last meal. Glucose of more than 200 mg/dL in a nonstressed, ambulatory subject supports the diagnosisof Diabetes Mellitus.Hematocrit Auto (Bld) [Volume fraction]Ordered By: Jose Alfredo Brantley on 92-36-9778Jxychbfrpq (Bld) [Volume fraction]Hematocrit [Volume Fraction] of Blood by Automated qqkfgWhx04.8-50.0A[facility] Medical CenterHemoglobin [Mass/volume] in BloodOrdered By: Jose Alfredo Brantley on 06-18-2024 Hemoglobin (Bld) [Mass/Vol]Hemoglobin [Mass/volume] in LatgdXtf84.0-17.0 [facility] CenterHypochromia LM Ql (Bld)Ordered By: Jose Alfredo Brantley on 58-91-1598Rqigzlxdqof Ql (Bld)Hypochromia [Presence] in Blood by Light microscopyAdena Pike Medical CenterLeukocytes [#/volume] corrected for nucleated erythrocytes in Blood by Automated counOrdered By: Jose Alfredo Brantley on 90-63-6225QSJ corrected for nucl RBC Auto (Bld) [#/Vol]Leukocytes [#/volume] corrected for nucleated erythrocytes in Blood by Automated coun4.1-10.5FAccess Hospital DaytonLymphocytes Auto (Bld) [#/Vol]Ordered By: Jose Alfredo Brantley on 68-54-7029Htngpyoitzs (Bld) [#/Vol]Lymphocytes [#/volume] in Blood by Automated countAdena Pike Medical CenterLymphocytes/100 WBC Auto (Bld)Ordered By: Jose Alfredo Brantley on 22-13-7204Luuuntglwaa/100 WBC (Bld)Lymphocytes/100 leukocytes in Blood by Automated countAdena Pike Medical CenterLymphocytes/100 WBC Manual cnt (Bld)Ordered By: Jose Alfredo Brantley on 70-69-8139Vmlvadepaqt/100 WBC (Bld) Lymphocytes/100 leukocytes in Blood by Manual dojxjZph86-56LwbrrribrKettering Health Greene MemorialH Auto (RBC) [Entitic mass]Ordered By: Jose Alfredo Brantley on 06-18-2024 MCH (RBC) [Entitic mass]MCH [Entitic mass] by Automated wwdxfPxe30.5-35.2 [facility] MemorialHC Auto (RBC) [Mass/Vol]Ordered By: Jose Alfredo Brantley on 45-43-8123BHTZ (RBC) [Mass/Vol]MCHC [Mass/volume] by Automated count 32.5-35.6FAccess Hospital DaytonMCV Auto (RBC) [Entitic vol]Ordered By: Jose Alfredo Brantley on 34-60-2970GLG (RBC) [Entitic vol]MCV [Entitic volume] by Automated jdeuaIro39.5-101A[facility] Medical CenterMacrocytes LM Ql (Bld)Ordered By: Jose Alfredo Brantley on 37-60-4084Kpibbyfeim Ql (Bld)Macrocytes [Presence] in Blood by Light microscopyAdena Pike Medical Center Microcytes LM Ql (Bld)Ordered By: Jose Alfredo Brantley on 65-52-7558Vsvxwophoz Ql (Bld) Microcytes [Presence] in Blood by Light microscopyAdena Pike Medical CenterMonocytes Auto (Bld) [#/Vol]Ordered By: Jose Alfredo Brantley on 79-64-1424Qejiuqnhr (Bld) [#/Vol]Automated blood monocyte countAdena Pike Medical Center Monocytes/100 WBC Auto (Bld)Ordered By: Jose Alfredo Brantley on 65-67-2283Tmfgdonoc/100 WBC (Bld)Automated monocyte %[facility] Medical CenterMonocytes/100 WBC Manual cnt (Bld)Ordered By: Jose Alfredo Brantley on 41-25-4122Tqsujnwjm/100 WBC (Bld) Monocytes/100 leukocytes in Blood by Manual countHigh2-11A[facility] Medical CenterNeutrophils Auto (Bld) [#/Vol]Ordered By: Jose Alfredo Brantley on 19-66-0312Ouvvacjenct (Bld) [#/Vol]Neutrophils [#/volume] in Blood by Automated countAdena Pike Medical CenterNeutrophils/100 WBC Auto (Bld)Ordered By: Jose Alfredo Brantley on 43-64-2563Hbucijihasj/100 WBC (Bld)Automated neutrophil % [facility] CenterNo Panel InformationOrdered By: Jose Alfredo Brantley on 89-09-2425Onilppg Glucose #[address]Toledo HospitalBedside Glucose CommentSee commentAdena Pike Medical CenterComment on above:Glu2: Will Repeat TestEstimated GFR (CKD-EPI)> 60.0 mL/MinAdena Pike Medical CenterPharmacy Creatinine Clearance (Chem50.22[facility] Medical CenterNucleated erythrocytes [Presence] in Blood by Automated countOrdered By: Jose Alfredo Brantley on 38-27-9352Uiqszqvwx RBC Auto Ql (Bld)Nucleated erythrocytes [Presence] in Blood by Automated countAdena Pike Medical CenterPlatelet adequacy [Presence] in Blood by Light microscopyOrdered By: Jose Alfredo Brantley on 91-55-5268Euzeuuixo LM Ql (Bld)Platelet adequacy [Presence] in Blood by Light microscopyNormalAdena Pike Medical CenterPlatelet mean volume Auto (Bld) [Entitic vol]Ordered By: Jose Alfredo Brantley on 70-25-5506Mppuzgpg mean volume (Bld) [Entitic vol]Platelet mean volume [Entitic volume] in Blood by Automated count6.6-10.1FAccess Hospital DaytonPlatelet morphology finding [Identifier] in BloodOrdered By: Jose Alfredo Brantley on 67-74-6293Jntdaqpj morphology finding Nom (Bld)Platelet morphology finding [Identifier] in Blood [facility] Medical CenterPlatelets Auto (Bld) [#/Vol]Ordered By: Jose Alfredo Brantley on 60-42-9988Yttwdgpst (Bld) [#/Vol]Platelets [#/volume] in Blood by Automated nujap327-920VinopgcnpLima Memorial Hospital Large [Presence] in Blood by Light microscopyOrdered By: Jose Alfredo Brantley on 06-18-2024 Platelets Large LM Ql (Bld)Platelets Large [Presence] in Blood by Light microscopyAdena Pike Medical CenterPoikilocytosis [Presence] in Blood by Light microscopyOrdered By: Jose Alfredo Brantley on 06-99-9640Gtmqxvbggvtbqh LM Ql (Bld) Poikilocytosis [Presence] in Blood by Light microscopyAdena Pike Medical CenterPolychromasia [Presence] in Blood by Light microscopyOrdered By: Jose Alfredo Brantley on 35-58-2418Utkpxrtekclqu LM Ql (Bld)Polychromasia [Presence] in Blood by Light microscopyAdena Pike Medical CenterPotassium [Moles/volume] in Serum or PlasmaOrdered By: Jose Alfredo Brantley on 47-68-1595Wkezuhvvs [Moles/Vol] Potassium [Moles/volume] in Serum or Plasma3.5-5.1FAccess Hospital DaytonProtein [Mass/volume] in Serum or PlasmaOrdered By: Jose Alfredo Brantley on 84-26-6099Wshahqh [Mass/Vol]Protein [Mass/volume] in Serum or Plasma6.4-8.9 [facility] Medical CenterRBC Auto (Bld) [#/Vol]Ordered By: Jose Alfredo Brantley on 86-35-8051WBY (Bld) [#/Vol]Erythrocytes [#/volume] in Blood by Automated count3.90-5.60Fire[facility] Medical CenterSchistocytes [Presence] in Blood by Light microscopyOrdered By: Jose Alfredo Brantley on 84-73-8406Jqebsnyhqcgy LM Ql (Bld) Schistocytes [Presence] in Blood by Light microscopyMadison Healthegmented neutrophils/100 WBC Manual cnt (Bld)Ordered By: Jose Alfredo Brantley on 44-66-1765Nbebjanse neutrophils/100 WBC (Bld)Manual blood segmented neutrophils/100 sngsmpbyar47-62RxqwtpeiqMadison Healtherum or plasma albumin/globulin mass ratioOrdered By: Jose Alfredo Brantley on 13-30-8165Dorzxyo/Globulin [Mass ratio]Serum or plasma albumin/globulin mass ratioMadison Healtherum or plasma anion gap determinationOrdered By: Jose Alfredo Brantley on 67-53-0869Psvxd gap [Moles/Vol]Serum or plasma anion gap determination6.0-15.0 Madison Healthodium [Moles/volume] in Serum or PlasmaOrdered By: Jose Alfredo Brantley on 91-37-2786Kjzokk [Moles/Vol]Sodium [Moles/volume] in Serum or Xjfmhg756-945AeuyoouogAdena Pike Medical CenterTarget cells [Presence] in Blood by Light microscopyOrdered By: Jose Alfredo Brantley on 01-50-4830Augeun cells LM Ql (Bld)Target cellsAdena Pike Medical CenterUrea nitrogen [Mass/volume] in Serum or PlasmaOrdered By: Jose Alfredo Brantley on 54-01-0798Bsui nitrogen [Mass/Vol] Urea nitrogen [Mass/volume] in Serum or Plasma7-25A[facility] Medical CenterWBC Auto (Bld) [#/Vol]Ordered By: Jose Alfredo Brantley on 35-40-4236SZI (Bld) [#/Vol]Leukocytes [#/volume] in Blood by Automated count4.1-10.5FAccess Hospital DaytonComprehensive Metabolic Panelon 43-16-4989Dquwppu [Mass/Vol]3.3 g/dLLow3.5-5.7The [facility] Physician GroupComment on above: Performed By: #### CMP, SCAN CBC, PHOS, MG ####[facility] [address] [place] [address] USAAlbumin/Globulin [Mass ratio]1.2 {ratio}NormalThe [facility] Health Physician GroupComment on above:Performed By: #### CMP, SCAN CBC, PHOS, MG ####[place] [address] USAALP [Catalytic activity/Vol]109 U/TJzxt26-701Tir [facility] Physician GroupComment on above:Performed By: #### CMP, SCAN CBC, PHOS, MG ####[place] [address] USAALT [Catalytic activity/Vol]12 U/LNormal7-52[facility] Comment on above:Performed By: #### CMP, SCAN CBC, PHOS, MG ####[place] [address] USAAnion gap [Moles/Vol] 11.1 mmol/LNormal6.0-15.0The [facility] Physician GroupComment on above:Performed By: #### CMP, SCAN CBC, PHOS, MG ####[place] [address] USAAST [Catalytic activity/Vol]20 U/GHcshan80-54Nju [facility] Physician GroupComment on above:Performed By: #### CMP, SCAN CBC, PHOS, MG ####[place] [address] USABilirubin [Mass/Vol]0.4 mg/dLNormal0.3-1.0The [facility] Comment on above:Performed By: #### CMP, SCAN CBC, PHOS, MG ####[place] [address] USACalcium [Mass/Vol]8.4 mg/dLLow8.6-10.3The [facility] Physician GroupComment on above:Performed By: #### CMP, SCAN CBC, PHOS, MG ####[place] [address] USAChloride [Moles/Vol]101 mmol/ZPrrygg91-750Nsq [facility] Physician GroupComment on above:Performed By: #### CMP, SCAN CBC, PHOS, MG ####[facility] [place] [id number] USACO2 [Moles/Vol]27.8 mmol/JXewchz08.0-31.0The [facility] Physician GroupComment on above:Performed By: #### CMP, SCAN CBC, PHOS, MG ####[address] [place] [address] USACreatinine [Mass/Vol]0.79 mg/dLNormal0.70-1.30The [facility] Physician GroupComment on above:Performed By: #### CMP, SCAN CBC, PHOS, MG ####[address] [place] [address] USACreatinine Clr Calc Gidzrhjf89.66NormMayo Clinic Florida Physician GroupComment on above:Performed By: #### CMP, SCAN CBC, PHOS, MG ####[address] [place] [address] [place] GFR/1.73 sq M.predicted MDRD (S/P/Bld) [Vol rate/Area]mL/min/{1.73_m2}NormalThe [facility] Physician GroupComment on above:Performed By: #### CMP, SCAN CBC, PHOS, MG ####[address] [place] [address] USAGlobulin (S) [Mass/Vol]2.8 g/dLNoDosher Memorial Hospital Physician [facility] GulfportComment on above:Performed By: #### CMP, SCAN CBC, PHOS, MG ####[place] [address] USAGlucose [Mass/Vol]79 mg/sENkwbji30-357 The [facility] Physician GroupComment on above:Result Comment: Random Glucose Reference Range is dependent on time and content of last meal. Glucose of more than 200 mg/dL in a nonstressed, ambulatory subject supports the diagnosis of Diabetes Mellitus. ADA recommended reference rangePerformed By: #### CMP, SCAN CBC, PHOS, MG ####[place] [address] [place] [id number] [place] Potassium [Moles/Vol]3.9 mmol/LNormal3.5-5.1The [facility] Physician GroupComment on above:Performed By: #### CMP, SCAN CBC, PHOS, MG ####[place] [address] USAProtein [Mass/Vol]6.1 g/dLLow 6.4-8.9The [facility] Physician GroupComment on above:Performed By: #### CMP, SCAN CBC, PHOS, MG ####[place] [address] USASodium [Moles/Vol]136 mmol/WEvmded270-014Hwb [facility] Physician GroupComment on above:Performed By: #### CMP, SCAN CBC, PHOS, MG ####[place] [address] USAUrea nitrogen [Mass/Vol]22 mg/dLNormal7-25The [facility] Physician GroupComment on above: Performed By: #### CMP, SCAN CBC, PHOS, MG ####[place] [id number] USAGlucose Poct Glucometerson 06-17-2024 Iwblsbg9Drg5: Cleaned MeterAdventHealth East Orlando Physician GroupComment on above: Result Comment: PERFORMED BY: [place] [address] PATHOLOGIST MAINTENANCE MECHANIC SUPERVISOR ANDRE PERALTA M.D.Performed By: #### GLULS #### Point of Care testing ,Glucose [Mass/Vol]229 mg/dLNoDosher Memorial Hospital Physician GroupComment on above: Result Comment: Random Glucose Reference Range is dependent on time and content of last meal. Glucose of more than 200 mg/dL in a nonstressed, ambulatory subject supports the diagnosis of Diabetes Mellitus.Performed By: #### GLULS #### Point of Care testing ,Fuacmrc2Mkq0: Cleaned MeterAdventHealth East Orlando Physician GroupComment on above: Result Comment: PERFORMED BY: [place] [address] PATHOLOGIST MAINTENANCE MECHANIC SUPERVISOR ANDRE PERALTA M.D.Performed By: #### GLULS #### Point of Care testing ,Glucose [Mass/Vol]250 mg/dLAdventHealth East Orlando Physician GroupComment on above: Result Comment: Random Glucose Reference Range is dependent on time and content of last meal. Glucose of more than 200 mg/dL in a nonstressed, ambulatory subject supports the diagnosis of Diabetes Mellitus.Performed By: #### GLULS #### Point of Care testing ,Glucose [Mass/Vol]352 mg/dLAdventHealth East Orlando Physician GroupComment on above: Result Comment: Random Glucose Reference Range is dependent on time and content of last meal. Glucose of more than 200 mg/dL in a nonstressed, ambulatory subject supports the diagnosis of Diabetes Mellitus. PERFORMED BY: [place] [address] PATHOLOGIST MAINTENANCE MECHANIC SUPERVISOR ANDRE PERALTA M.D.Performed By: #### GLULS ####Point of Care testing, Glucose [Mass/Vol]82 mg/dLAdventHealth East Orlando Physician GroupComment on above: Result Comment: Random Glucose Reference Range is dependent on time and content of last meal. Glucose of more than 200 mg/dL in a nonstressed, ambulatory subject supports the diagnosis of Diabetes Mellitus. PERFORMED BY: [place] [address] PATHOLOGIST MAINTENANCE MECHANIC SUPERVISOR ANDRE PERALTA M.D.Performed By: #### GLULS ####Point of Care testing, Magnesiumon 64-24-1835Prqrdsmwy [Mass/Vol]1.7 mg/dLLow1.9-2.7The [facility] Physician GroupComment on above:Result Comment: PERFORMED BY: [place] [address] PATHOLOGIST MAINTENANCE MECHANIC SUPERVISOR ANDRE PERALTA M.D.Performed By: #### CMP, SCAN CBC, PHOS, MG ####[facility] [address] [place] [address] [facility] Magnesium [Mass/volume] in Serum or PlasmaOrdered By: Jose Alfredo Brantley on 06-17-2024 Magnesium [Mass/Vol]Magnesium [Mass/volume] in Serum or PlasmaLow1.9-2.7 [facility] Medical CenterPhosphate [Mass/volume] in Serum or Plasma Ordered By: Jose Alfredo Brantley on 40-41-8017Zdlsmhfwd [Mass/Vol]Phosphate [Mass/volume] in Serum or Plasma2.5-4.5FAccess Hospital DaytonPhosphoruson 68-10-3974Ifrjiiaio [Mass/Vol]3.7 mg/dLNormal2.5-4.5The [facility] Physician GroupComment on above:Performed By: #### CMP, SCAN CBC, PHOS, MG ####[place] [address] USAScan and CBCon 84-31-8468HqeqtjqqhycjMhlznbtyRsujesNny [facility]lands Physician GroupComment on above:Performed By: #### CMP, SCAN CBC, PHOS, MG ####[place] [address] USAAnisocytosis Ql (Bld)[facility] Physician [facility] GulfportComment on above:Performed By: #### CMP, SCAN CBC, PHOS, MG ####[place] [address] USABasophils (Bld) [#/Vol]0.1 10*3/uLNormal0.0-0.2The [facility] Comment on above:Performed By: #### CMP, SCAN CBC, PHOS, MG ####[place] [address] USABasophils/100 WBC (Bld)0.9 %Normal.The [facility] Physician GroupComment on above:Performed By: #### CMP, SCAN CBC, PHOS, MG ####[place] [id number] USACrenated RBCSlightAdventHealth East Orlando Physician [facility] GulfportComment on above:Performed By: #### CMP, SCAN CBC, PHOS, MG ####[place] [address] USAEosinophils (Bld) [#/Vol]0.2 10*3/uLNormal0.0-0.45The [facility] Physician GroupComment on above: Performed By: #### CMP, SCAN CBC, PHOS, MG ####[place] [address] USAEosinophils/100 WBC (Bld)2.0 %Normal. The [facility] Physician GroupComment on above:Performed By: #### CMP, SCAN CBC, PHOS, MG ####[place] [address] USAErythrocyte distribution width (RBC) [Ratio]20.3 %High12.0-14.8The [facility] Physician GroupComment on above:Performed By: #### CMP, SCAN CBC, PHOS, MG ####[place] [address] [place] Hematocrit (Bld) [Volume fraction]35.1 %Low38.8-50.0The [facility] Physician GroupComment on above:Performed By: #### CMP, SCAN CBC, PHOS, MG ####[place] [address] USAHemoglobin (Bld) [Mass/Vol]11.5 g/dLLow13.0-17.0The [facility] Physician GroupComment on above: Performed By: #### CMP, SCAN CBC, PHOS, MG ####[place] [address] USAHypochromasiaModerateNormMayo Clinic Florida Physician GroupComment on above:Performed By: #### CMP, SCAN CBC, PHOS, MG ####[place] [id number] USALarge PlateletsSlightNoDosher Memorial Hospital Physician GroupComment on above: Result Comment: PERFORMED BY: [place] [address] PATHOLOGIST MAINTENANCE MECHANIC SUPERVISOR ANDRE PERALTA M.D.Performed By: #### CMP, SCAN CBC, PHOS, MG ####[place] [address] [place] Lymphocytes (Bld) [#/Vol]1.7 10*3/uLNormal1.00-4.8The [facility] Comment on above:Performed By: #### CMP, SCAN CBC, PHOS, MG ####[place] [address] USALymphocytes/100 WBC (Bld)19.4 %Normal.The [facility] Physician GroupComment on above:Performed By: #### CMP, SCAN CBC, PHOS, MG ####[address] Peterson StreetMCH (RBC) [Entitic mass]25.5 pgLow27.5-35.2The [facility] Physician GroupComment on above:Performed By: #### CMP, SCAN CBC, PHOS, MG ####[address]V (RBC) [Entitic vol]77.8 fLLow83.5-101The [facility] Physician GroupComment on above:Performed By: #### CMP, SCAN CBC, PHOS, MG ####[place] [address] USAMean Corpuscular HGB Conc32.8 g/tTCjwzpg73.5-35.6The [facility] Physician GroupComment on above:Performed By: #### CMP, SCAN CBC, PHOS, MG ####[place] [address] USAMicrocytosisSlightNormalThe [facility] Physician GroupComment on above:Performed By: #### CMP, SCAN CBC, PHOS, MG ####[place] [address] USAMonocytes (Bld) [#/Vol]1.2 10*3/uLHigh0.0-0.8The [facility] Physician GroupComment on above: Performed By: #### CMP, SCAN CBC, PHOS, MG ####[place] [address] USAMonocytes/100 WBC (Bld)14.4 %Normal. The [facility] Physician GroupComment on above:Performed By: #### CMP, SCAN CBC, PHOS, MG ####[place] [address] USANeutrophils (Bld) [#/Vol]5.4 10*3/uLNormal1.8-7.7The [facility] Physician GroupComment on above:Performed By: #### CMP, SCAN CBC, PHOS, MG ####[place] [address] USANeutrophils/100 WBC (Bld)63.3 %Normal.The [facility] Physician GroupComment on above:Performed By: #### CMP, SCAN CBC, PHOS, MG ####[place] [address] USANRBC%0.0 /100{WBC}Normal0-0.5The [facility] Physician GroupComment on above:Performed By: #### CMP, SCAN CBC, PHOS, MG ####[place] [address] USAPlatelet Estimate NormalNormalAdventHealth East Orlando Physician GroupComment on above:Performed By: #### CMP, SCAN CBC, PHOS, MG ####[place] [id number] USAPlatelet mean volume (Bld) [Entitic vol]10.2 fLHigh 6.6-10.1The [facility] Physician GroupComment on above:Performed By: #### CMP, SCAN CBC, PHOS, MG ####[place] [id number] USAPlatelets (Bld) [#/Vol]213 10*3/rOBxysay052-502Sxm [facility] Physician GroupComment on above:Performed By: #### CMP, SCAN CBC, PHOS, MG ####[place] [address] USA PoikilocytosisMarkedNormMayo Clinic Florida Physician GroupComment on above: Performed By: #### CMP, SCAN CBC, PHOS, MG ####[facility] [place] [address] USAPolychromasiaSlightAdventHealth East Orlando Physician GroupComment on above:Performed By: #### CMP, SCAN CBC, PHOS, MG ####[address] [place] [address] USARBC (Bld) [#/Vol]4.52 10*6/uLNormal3.90-5.60The [facility] Physician GroupComment on above:Performed By: #### CMP, SCAN CBC, PHOS, MG ####[address] [address] USASchistocytesAdventHealth Deltona ER Physician GroupComment on above:Performed By: #### CMP, SCAN CBC, PHOS, MG ####[address] [address] USATarget CellsAdventHealth Deltona ER Physician GroupComment on above: Performed By: #### CMP, SCAN CBC, PHOS, MG ####[address] [address] USAWBC (Bld) [#/Vol]8.5 10*3/uLNormal 4.1-10.5The [facility] Physician GroupComment on above:Performed By: #### CMP, SCAN CBC, PHOS, MG ####[address] [address] USABacteria identified Aer cx Nom (Unsp spec)Ordered By: Vargas Reis on 76-70-7770Tkujnplyjoo Wound CultureAbnoMercy Health Kings Mills Hospital Blood Cultureon 32-67-8537Smhmtcut identified Cx Nom (Bld)NO GROWTH 5 DAYS PERFORMED BY: [facility] [address] [place] [id number] PATHOLOGIST MAINTENANCE MECHANIC SUPERVISOR ANDRE PERALTA M.D.NormalThe [facility] Physician GroupComment on above: Performed By: #### GLULS #### Point of Care testing ,Bacteria identified Cx Nom (Bld)NO GROWTH 5 DAYS PERFORMED BY: [address] [address] PATHOLOGIST MAINTENANCE MECHANIC SUPERVISOR ANDRE PERALTA M.D.[facility] Physician GroupComment on above: Performed By: #### GLULS #### Point of Care testing ,Bacteria identified Cx Nom (Bld)NO GROWTH 5 DAYS PERFORMED BY: [address] [address] PATHOLOGIST MAINTENANCE MECHANIC SUPERVISOR ANDRE PERALTA M.D.[facility] Physician GroupComment on above: Performed By: #### GLULS #### Point of Care testing ,CT abdomen w conon 56-86-6004TB abdomen w [facility] [place] [address] [place] [address] Scan Report Signed Patient: Manolo Roche MR#: [id number] 353 : 1935 Acct:[id number] Age/Sex: 89 / M ADM Date: 06/16/24 Loc: ER Room: Type: [facility] ER Attending Dr: Copies to: Vargas [...] Sheldon Johnson M.D.06/16/2024 3:48 PM Dictation Location: [place] [address] Transcribed By: [facility] 06/16/24 1548 Dictated By: Sheldon Johnson DO 06/16/24 1535 Signed By: 06/16/24 1548NoDosher Memorial Hospital Physician GroupComprehensive Metabolic Panelon 36-42-4114Fhxzaic [Mass/Vol]3.5 g/dLNormal3.5-5.7The [facility] Comment on above:Performed By: #### GLULS #### Point of Care testing ,Albumin/Globulin [Mass ratio]1.2 {ratio}NormalThe [facility] Comment on above:Performed By: #### GLULS #### Point of Care testing ,ALP [Catalytic activity/Vol]116 U/MDoci89-762Ixt [facility] Comment on above:Performed By: #### GLULS #### Point of Care testing ,ALT [Catalytic activity/Vol]17 U/LNormal7-52The [facility] Comment on above:Performed By: #### GLULS #### Point of Care testing ,Anion gap [Moles/Vol]10.2 mmol/LNormal6.0-15.0The [facility] Comment on above:Performed By: #### GLULS #### Point of Care testing ,AST [Catalytic activity/Vol]24 U/DYlikqd46-09Gxq [facility] Comment on above:Performed By: #### GLULS #### Point of Care testing ,Bilirubin [Mass/Vol]0.4 mg/dLNormal0.3-1.0The [facility] Physician GroupComment on above:Performed By: #### GLULS #### Point of Care testing ,Calcium [Mass/Vol]8.8 mg/dLNormal8.6-10.3The [facility] Physician GroupComment on above:Performed By: #### GLULS #### Point of Care testing ,Chloride [Moles/Vol]98 mmol/MRegefo92-939Yob [facility] Physician GroupComment on above:Performed By: #### GLULS #### Point of Care testing ,CO2 [Moles/Vol]30.4 mmol/UGuqtks28.0-31.0The [facility] Physician GroupComment on above:Performed By: #### GLULS #### Point of Care testing ,Creatinine [Mass/Vol]1.10 mg/dLNormal0.70-1.30The [facility] Comment on above:Performed By: #### GLULS #### Point of Care testing ,Creatinine Clr Calc Nslqmeba50.08NormMayo Clinic Florida Physician GroupComment on above:Result Comment: PERFORMED BY: [address] [place] [address] PATHOLOGIST MAINTENANCE MECHANIC SUPERVISOR ANDRE PERALTA M.D.Performed By: #### GLULS #### Point of Care testing ,GFR/1.73 sq M.predicted MDRD (S/P/Bld) [Vol rate/Area]mL/min/{1.73_m2}NormalThe [facility] Physician GroupComment on above:Performed By: #### GLULS #### Point of Care testing ,Globulin (S) [Mass/Vol]3.0 g/dLNoDosher Memorial Hospital Physician GroupComment on above:Performed By: #### GLULS #### Point of Care testing ,Glucose [Mass/Vol]118 mg/jUZbum65-603Qje [facility] Physician GroupComment on above:Result Comment: Random Glucose Reference Range is dependent on time and content of last meal. Glucose of more than 200 mg/dL in a nonstressed, ambulatory subject supports the diagnosis of Diabetes Mellitus. ADA recommended reference rangePerformed By: #### GLULS #### Point of Care testing ,Potassium [Moles/Vol]4.6 mmol/LNormal3.5-5.1The [facility] Comment on above:Performed By: #### GLULS #### Point of Care testing ,Protein [Mass/Vol]6.5 g/dLNormal6.4-8.9The [facility] Physician GroupComment on above:Performed By: #### GLULS #### Point of Care testing ,Sodium [Moles/Vol]134 mmol/NOia500-702Iyr [facility] Physician GroupComment on above:Performed By: #### GLULS #### Point of Care testing ,Urea nitrogen [Mass/Vol]29 mg/dLHigh7-25The [facility] Physician GroupComment on above:Performed By: #### GLULS #### Point of Care testing ,ECG 12 lead ECGon 88-18-4158WGT 12 lead ECGASHTABULA [place] [address] Electrocardiograph Report Signed Patient: Manolo Roche MR#: [id number] 353 : 1935 Acct:[id number] Age/Sex: 89 / M ADM Date: 06/16/24 Loc: Room: [address] [place] [address] Type: ADM IN Attending Dr: Jose Alfredo [...] Anterior leads Confirmed by MARVIN KONG DO ([id number]) on 06/16/2024 7:24:37 PM Referred By: Electronically Signed By: MARVIN KONG DO Transcribed By: MUS Signed By Marvin Kong DO 06/16 1924[facility] Physician [facility] GulfportGlucose Poct Glucometerson 06-16-2024 Glucose [Mass/Vol]385 mg/dLWadena ClinicComment on above: Result Comment: Random Glucose Reference Range is dependent on time and content of last meal. Glucose of more than 200 mg/dL in a nonstressed, ambulatory subject supports the diagnosis of Diabetes Mellitus. PERFORMED BY: [address] [address] PATHOLOGIST MAINTENANCE MECHANIC SUPERVISOR ANDRE PERALTA M.D.Performed By: #### GLULS ####Point of Care testing, Qttmtgb3GubsvhF[address] Physician GroupComment on above:Result Comment: Glu2: Will Repeat TestPerformed By: #### GLULS ####Point of Care testing, Pxppenn5YUOF NOTIFY DR/RNNoDosher Memorial Hospital Physician GroupComment on above: Result Comment: PERFORMED BY: [address] [place] [address] PATHOLOGIST MAINTENANCE MECHANIC SUPERVISOR ANDRE PERALTA M.D.Performed By: #### GLULS ####Point of Care testing, Glucose [Mass/Vol]401 mg/dLOff scale highTrinity Community Hospital Physician GroupComment on above:Result Comment: Random Glucose Reference Range is dependent on time and content of last meal. Glucose of more than 200 mg/dL in a nonstressed, ambulatory subject supports the diagnosis of Diabetes Mellitus.Performed By: #### GLULS ####Point of Care testing,Helmet cells [Presence] in Blood by Light microscopyOrdered By: Vargas Reis on 49-76-5808Qssvmh cells LM Ql (Bld)Helmet cell detectionAdena Pike Medical CenterLaboratory - Microbiology and Antimicrobial susceptibilityOrdered By: Marvin Kong on 70-82-4345Jmdlixbh identified Cx Nom (Bld)NO GROWTH 5 DAYS [facility] Medical CenterBacteria identified Cx Nom (Bld)NO GROWTH 5 DAYSAdena Pike Medical CenterLaboratory - Microbiology and Antimicrobial susceptibilityOrdered By: Vargas Reis on 01-92-8942Vnezjqbb identified Cx Nom (Bld)NO GROWTH 5 DAYSAdena Pike Medical CenterLactate [Moles/volume] in Serum or PlasmaOrdered By: Marvin Kong on 84-93-1446Mkcbqiv [Moles/Vol] Lactate [Moles/volume] in Serum or Plasma0.5-2.2FAccess Hospital DaytonLactic Acidon 46-98-2910Haccquj [Moles/Vol]1.0 mmol/LNormal0.5-2.2The [facility] Physician [facility] GulfportComment on above:Result Comment: PERFORMED BY: [address] [address] PATHOLOGIST MAINTENANCE MECHANIC SUPERVISOR ANDRE PERALTA M.D.Performed By: #### GLULS #### Point of Care testing ,Monocyte distribution width [Entitic volume] in Blood by AutomatedOrdered By: Vargas Reis on 42-85-4496Efbibvll distribution width Auto (Bld) [Entitic vol] Monocyte distribution width [Entitic volume] in Blood by AutomatedHigh0.00-20.00 [facility] Medical CenterComment on above:For adults in ED, MDW > 20.0 may be associated with a higher risk of sepsis during the first 12 hrs of hospital admissionScan and CBCon 49-69-6153BijdnfikheegLbqxidVisrpxZqu [facility] Physician GroupComment on above:Performed By: #### GLULS #### Point of Care testing ,Anisocytosis Ql (Bld)[facility] Physician [facility] GulfportComment on above: Performed By: #### GLULS #### Point of Care testing ,Basophils (Bld) [#/Vol]0.0 10*3/uLNormal0.0-0.2The [facility] Physician [facility] Comment on above:Result Comment: PERFORMED BY: [facility] [address] [place] [address] PATHOLOGIST MAINTENANCE MECHANIC SUPERVISOR ANDRE PERALTA M.D.Performed By: #### GLULS #### Point of Care testing ,Basophils/100 WBC (Bld)0.4 %Normal.The [facility] Physician GroupComment on above:Performed By: #### GLULS #### Point of Care testing ,Crenated RBCSAtrium Health Physician GroupComment on above:Performed By: #### GLULS #### Point of Care testing ,Eosinophils (Bld) [#/Vol]0.1 10*3/uLNormal0.0-0.45The [facility] Physician [facility] Comment on above:Performed By: #### GLULS #### Point of Care testing ,Eosinophils/100 WBC (Bld)0.5 %Normal.The [facility] Physician GroupComment on above:Performed By: #### GLULS #### Point of Care testing ,Erythrocyte distribution width (RBC) [Ratio]20.2 %High12.0-14.8The [facility] Physician GroupComment on above:Performed By: #### GLULS #### Point of Care testing ,Helmet CellsSAtrium Health Physician GroupComment on above:Performed By: #### GLULS #### Point of Care testing ,Hematocrit (Bld) [Volume fraction]36.1 %Low38.8-50.0The [facility] Physician GroupComment on above:Performed By: #### GLULS #### Point of Care testing ,Hemoglobin (Bld) [Mass/Vol]11.9 g/dLLow13.0-17.0The [facility] Physician [facility] Comment on above:Performed By: #### GLULS #### Point of Care testing ,HypochromasiaModerateAdventHealth East Orlando Physician GroupComment on above: Performed By: #### GLULS #### Point of Care testing ,Lymphocytes (Bld) [#/Vol]2.3 10*3/uLNormal1.00-4.8The [facility] Physician [facility] Comment on above:Performed By: #### GLULS #### Point of Care testing ,Lymphocytes/100 WBC (Bld)22.7 %Normal.The [facility] Physician GroupComment on above:Performed By: #### GLULS #### Point of Care testing ,MacrocytosisSAtrium Health Physician GroupComment on above:Performed By: #### GLULS #### Point of Care testing ,MCH (RBC) [Entitic mass]25.5 pgLow27.5-35.2The [facility] Physician GroupComment on above:Performed By: #### GLULS #### Point of Care testing ,MCV (RBC) [Entitic vol]77.4 fLLow83.5-101The [facility] Physician GroupComment on above:Performed By: #### GLULS #### Point of Care testing ,Mean Corpuscular HGB Conc33.0 g/qPDthdnp36.5-35.6The [facility] Comment on above:Performed By: #### GLULS #### Point of Care testing ,MicrocytosisSAtrium Health Physician GroupComment on above:Performed By: #### GLULS #### Point of Care testing ,Monocytes (Bld) [#/Vol]1.2 10*3/uLHigh0.0-0.8The [facility] Comment on above:Performed By: #### GLULS #### Point of Care testing ,Monocytes/100 WBC (Bld)21.77 %High0.00-20.00The [facility] Comment on above:Result Comment: For adults in ED, MDW > 20.0 may be associated with a higher risk of sepsis during the first 12 hrs of hospital admissionPerformed By: #### GLULS #### Point of Care testing ,Monocytes/100 WBC (Bld)11.5 %Normal.The [facility] Physician GroupComment on above:Performed By: #### GLULS #### Point of Care testing ,Neutrophils (Bld) [#/Vol]6.5 10*3/uLNormal1.8-7.7The [facility] Physician [facility] Comment on above:Performed By: #### GLULS #### Point of Care testing ,Neutrophils/100 WBC (Bld)64.9 %Normal.The [facility] Physician GroupComment on above:Performed By: #### GLULS #### Point of Care testing ,NRBC%0.1 /100{WBC}Normal0-0.5The [facility] Physician GroupComment on above: Performed By: #### GLULS #### Point of Care testing ,Platelet EstimateNormalNormalAdventHealth East Orlando Physician GroupComment on above:Performed By: #### GLULS #### Point of Care testing ,Platelet mean volume (Bld) [Entitic vol]10.9 fLHigh6.6-10.1The [facility] Health Physician GroupComment on above:Performed By: #### GLULS #### Point of Care testing ,Platelet MorphologyNormalNormalNoDosher Memorial Hospital Physician GroupComment on above:Result Comment: PERFORMED BY: [facility] [place] [address] PATHOLOGIST MAINTENANCE MECHANIC SUPERVISOR ANDRE PERALTA M.D.Performed By: #### GLULS #### Point of Care testing ,Platelets (Bld) [#/Vol]233 10*3/wUPhybxj122-687Fzp [facility] Comment on above:Performed By: #### GLULS #### Point of Care testing ,PoikilocytosisMarkedAdventHealth East Orlando Physician GroupComment on above: Performed By: #### GLULS #### Point of Care testing ,PolychromasiaModerateAdventHealth East Orlando Physician GroupComment on above: Performed By: #### GLULS #### Point of Care testing ,RBC (Bld) [#/Vol]4.67 10*6/uLNormal3.90-5.60The [facility] Physician [facility] Comment on above:Performed By: #### GLULS #### Point of Care testing ,SchistocytesModerateAdventHealth East Orlando Physician GroupComment on above: Performed By: #### GLULS #### Point of Care testing ,Target CellsModerateAdventHealth East Orlando Physician GroupComment on above: Performed By: #### GLULS #### Point of Care testing ,WBC (Bld) [#/Vol]10.1 10*3/uLNormal4.1-10.5The [facility] Health Physician GroupComment on above:Performed By: #### GLULS #### Point of Care testing ,Superficial Wound Cultureon 81-60-8073Hcaiejyxzcc Wound CultureORGANISM: Staphylococcus aureus (O:STAAUR) Quantity of Growth Moderate [...] RESISTANT TO ALL B-LACTAM DRUGS. PERFORMED BY: [address] [address] PATHOLOGIST MAINTENANCE MECHANIC SUPERVISOR ANDRE PERALTA M.D.NormalThe [facility] Health Physician GroupComment on above: Performed By: #### GLULS #### Point of Care testing ,Basic Metabolic Panelon 67-16-5079Dpafs gap [Moles/Vol]11.5 mmol/LNormal 6.0-15.0The [facility] Health Physician GroupComment on above:Performed By: #### GLULS #### Point of Care testing ,Calcium [Mass/Vol]8.6 mg/dLNormal8.6-10.3The [facility] Health Physician GroupComment on above:Performed By: #### GLULS #### Point of Care testing ,Chloride [Moles/Vol]103 mmol/IDyhvsu54-398Hqb [facility] Physician GroupComment on above:Performed By: #### GLULS #### Point of Care testing ,CO2 [Moles/Vol]27.5 mmol/LQdmyhw40.0-31.0The [facility] Health Physician GroupComment on above:Performed By: #### GLULS #### Point of Care testing ,Creatinine [Mass/Vol]0.75 mg/dLNormal0.70-1.30The [facility] Comment on above:Performed By: #### GLULS #### Point of Care testing ,Creatinine Clr Calc Pbvhpkak30.91NormalThe [facility] Health Physician GroupComment on above:Result Comment: PERFORMED BY: [facility] [address] [place] [place] [address] PATHOLOGIST MAINTENANCE MECHANIC SUPERVISOR ANDRE PERALTA M.D.Performed By: #### GLULS #### Point of Care testing ,GFR/1.73 sq M.predicted MDRD (S/P/Bld) [Vol rate/Area]mL/min/{1.73_m2}NormalThe [facility] Health Physician GroupComment on above:Performed By: #### GLULS #### Point of Care testing ,Glucose [Mass/Vol]80 mg/sVJoggci02-822Afq [facility] Physician GroupComment on above:Result Comment: Random Glucose Reference Range is dependent on time and content of last meal. Glucose of more than 200 mg/dL in a nonstressed, ambulatory subject supports the diagnosis of Diabetes Mellitus. ADA recommended reference rangePerformed By: #### GLULS #### Point of Care testing ,Potassium [Moles/Vol]4.0 mmol/LNormal3.5-5.1The [facility] Comment on above:Performed By: #### GLULS #### Point of Care testing ,Sodium [Moles/Vol]138 mmol/VZvivll288-528Gdn [facility] Physician GroupComment on above:Performed By: #### GLULS #### Point of Care testing ,Urea nitrogen [Mass/Vol]19 mg/dLNormal7-25The [facility] Health Physician GroupComment on above:Performed By: #### GLULS #### Point of Care testing ,Calcium [Mass/volume] in Serum or PlasmaOrdered By: Mikel Root on 84-00-3481Ubbganr [Mass/Vol]Calcium [Mass/volume] in Serum or Plasma8.6-10.3 [facility] Medical CenterCarbon dioxide, total [Moles/volume] in Serum or PlasmaOrdered By: Mikel Padillaed on 02-42-6104RI0 [Moles/Vol]Carbon dioxide, total [Moles/volume] in Serum or Spcdhj38.0-31.0[facility] Medical CenterChloride [Moles/volume] in Serum or PlasmaOrdered By: Mikel Padillaed on 72-07-1872Hzwbphxj [Moles/Vol]Chloride [Moles/volume] in Serum or Naawic43-535ZaeorgbcaAdena Pike Medical CenterCreatinine [Mass/volume] in Serum or PlasmaOrdered By: Mikel Root on 34-86-2222Hhudsxdvnh [Mass/Vol] Creatinine [Mass/volume] in Serum or Plasma0.70-1.30[facility] Medical CenterGlucose Glucometer (BldC) [Mass/Vol]Ordered By: Mikel Root on 11-88-7480Pfywizr [Mass/Vol]Capillary blood glucose measurement by glucometer (mass/volume)[facility] Medical CenterComment on above:Random Glucose Reference Range is dependent on time and content of last meal. Glucose of more than 200 mg/dL in a nonstressed, ambulatory subject supports the diagnosis of Diabetes Mellitus.Glucose Poct Glucometerson 91-61-8632Qlxmpkm [Mass/Vol]87 mg/dLNoDosher Memorial Hospital Physician GroupComment on above:Result Comment: Random Glucose Reference Range is dependent on time and content of last meal. Glucose of more than 200 mg/dL in a nonstressed, ambulatory subject supports the diagnosis of Diabetes Mellitus. PERFORMED BY: [place] [address] [place] [address] PATHOLOGIST MAINTENANCE MECHANIC SUPERVISOR ANDRE PERALTA M.D.Performed By: #### GLULS #### Point of Care testing ,Glucose [Mass/volume] in Serum or PlasmaOrdered By: Mikel Root on 48-92-2618Yybhtwq [Mass/Vol]Glucose [Mass/volume] in Serum or Ifcska72-586 [facility] Medical CenterComment on above:ADA recommended reference rangeRandom Glucose Reference Range is dependent on time and content of last meal. Glucose of more than 200 mg/dL in a nonstressed, ambulatory subject supports the diagnosisof Diabetes Mellitus.No Panel InformationOrdered By: Mikel Root on 66-28-8693Lzzshgajb GFR (CKD-EPI)> 60.0 mL/MinAdena Pike Medical CenterPharmacy Creatinine Clearance (Chem60.91[facility] Medical CenterPotassium [Moles/volume] in Serum or PlasmaOrdered By: Mikel Root on 82-68-7127Ewmzfuraq [Moles/Vol]Potassium [Moles/volume] in Serum or Plasma3.5-5.1FLouis Stokes Cleveland VA Medical Centererum or plasma anion gap determinationOrdered By: Mikel Root on 40-52-7958Yptag gap [Moles/Vol]Serum or plasma anion gap determination6.0-15.0 Madison Healthodium [Moles/volume] in Serum or PlasmaOrdered By: Mikel Root on 51-11-4973Agmfgk [Moles/Vol]Sodium [Moles/volume] in Serum or Zpuqgo787-368OwmmyqfobAdena Pike Medical CenterUrea nitrogen [Mass/volume] in Serum or PlasmaOrdered By: Mikel Root on 11-57-3384Czid nitrogen [Mass/Vol]Urea nitrogen [Mass/volume] in Serum or Plasma 7-25[facility] Medical CenterX-ray reportOrdered By: Sofia Rosales on 27-94-8257Nmydz reportASHTABULA [place] [address] XRay Report Signed Patient: Manolo Roche MR#: [id number] : 1935 Acct:[id number] Age/Sex: 89 / M ADM Date: 4 Loc: Room: [address] [place] [address] Type: ADM IN Attending Dr: Abdulaziz Root MD Copies to: Abdulaziz Root M.D.~ Ordering Provider: Abdulaziz Root M.D. 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 The leads appear intact and in appropriate position. Thelungs are hyperinflated. There is no focal parenchymal consolidation, effusion or pneumothorax. Thecardiac, hilar and mediastinal silhouettes are stable. There is no vascular congestion. The visualized bony structures are osteopenic. There is mild endplate spurring. There is mild wedge deformity involving an upper thoracic vertebral body. XR/XR chest 2V* IMPRESSION: SATISFACTORY APPEARANCE OF PACEMAKER. OBSTRUCTIVE LUNG DISEASE. NO ACUTE PULMONARY FINDINGS. Impression dictated by: Sofia Rosales M.D.05/25/2024 8:13 AM Dictation Location: [place] [address] Transcribed By: [facility] 05/25/24812 Dictated By: Sofia Rosales MD 05/25/24809 Signed By: 05/25/24812 [facility] Work Phone: XR chest 2V*on 64-51-9425TG chest 2V*[facility] [place] [address] XRay Report Signed Patient: Manolo Roche MR#: [id number] : 1935 Acct:[id number] Age/Sex: 89 / M ADM Date: 05/24/24 Loc: Room: [address] [place] [address] Type: ADM IN Attending Dr: Abdulaziz Root [...] Sofia Rosales M.D.05/25/2024 8:13 AM Dictation Location: [place] [address] Transcribed By: [facility] 05/25/24812 Dictated By: Sofia Rosales MD 05/25/24809 Signed By: 05/25/24812[facility]ena ClinicBasic Metabolic Panelon 09-12-9506Ipdqt gap [Moles/Vol]11.9 mmol/LNormal6.0-15.0The [facility] Hospital Wyoming ValleyComment on above:Performed By: #### BMP ####[address] [place] [address] USACalcium [Mass/Vol]8.8 mg/dLNormal 8.6-10.3The [facility] Physician [facility] GulfportComment on above:Performed By: #### BMP ####[address] [address] [place] Chloride [Moles/Vol]103 mmol/VEjoqhd08-647Ktz [facility] GulfportComment on above:Performed By: #### BMP ####[address] [address] USACO2 [Moles/Vol]27.0 mmol/WDfgfkf61.0-31.0The [facility] Hospital Wyoming ValleyComment on above:Performed By: #### BMP ####[address] [place] [address] USACreatinine [Mass/Vol] 0.82 mg/dLNormal0.70-1.30The [facility] GulfportComment on above:Performed By: #### BMP ####[place] [id number] USACreatinine Clr Calc Bcettjgx38.04NormalThe [facility] Comment on above:Result Comment: PERFORMED BY: [facility] [address] [address] PATHOLOGIST MAINTENANCE MECHANIC SUPERVISOR ANDRE PERALTA M.D.Performed By: #### BMP ####[place] [id number] USAGFR/1.73 sq M.predicted MDRD (S/P/Bld) [Vol rate/Area]mL/min/{1.73_m2}NormalThe [facility] Comment on above:Performed By: #### BMP ####[place] [id number] USAGlucose [Mass/Vol]108 mg/qRUycv44-834Usl [facility] Physician GroupComment on above:Result Comment: Random Glucose Reference Range is dependent on time and content of last meal. Glucose of more than 200 mg/dL in a nonstressed, ambulatory subject supports the diagnosis of Diabetes Mellitus. ADA recommended reference rangePerformed By: #### BMP ####[place] [id number] USAPotassium [Moles/Vol]3.9 mmol/LNormal3.5-5.1The [facility] Physician GroupComment on above:Performed By: #### BMP ####[place] [id number] USASodium [Moles/Vol]138 mmol/CYewzzj130-871Zjx [facility] Physician GroupComment on above:Performed By: #### BMP ####[place] [id number] USAUrea nitrogen [Mass/Vol]22 mg/dLNormal7-25The [facility] Health Physician GroupComment on above:Performed By: #### BMP ####[address] [address] USACoagulation Profileon 92-96-2773bEPN Coag (Bld) [Time]30.1 gMpfkku30.1-36.5The [facility] Health Physician GroupComment on above:Result Comment: A hematocrit value greater than 55% may lead to inaccurate results in coagulation testing. Patients having hematocrit values >55% require a special collection tube for coagulation studies. Please contact the laboratory at [phone] for redraw instructions. PERFORMED BY: [facility] [address] [place] [address] PATHOLOGIST MAINTENANCE MECHANIC SUPERVISOR ANDRE PERALTA M.D.Performed By: #### PP ####[address] [place] [address] USAINR Coag (PPP) [Relative time]1.1 {INR}NormalThe [facility] Physician [facility] GulfportComment on above:Result Comment: INR Therapeutic Range A) Pre- and [...] patients with mechanical heart valves: 3 - 4.5Performed By: #### PP ####[address] [address] USAPT Coag (PPP) [Time]12.9 sNormal9.0-12.9The [facility] Physician [facility] GulfportComment on above: Result Comment: A hematocrit value greater than 55% may lead to inaccurate results in coagulation testing. Patients having hematocrit values >55% require a special collection tube for coagulation studies. Please contact the laboratory at [phone] for redraw instructions.Performed By: #### PP ####[address] [place] [address] USAGlucose Poct Glucometerson 90-02-4057Yjsfkhr [Mass/Vol]68 mg/dLNormSt. Thomas More HospitalComment on above:Result Comment: Random Glucose Reference Range is dependent on time and content of last meal. Glucose of more than 200 mg/dL in a nonstressed, ambulatory subject supports the diagnosis of Diabetes Mellitus. PERFORMED BY: [facility] [address] [place] [address] PATHOLOGIST MAINTENANCE MECHANIC SUPERVISOR ANDRE PERALTA M.D.Performed By: #### GLULS #### Point of Care testing ,Glucose [Mass/Vol]87 mg/dLAdventHealth East Orlando Physician GroupComment on above: Result Comment: Random Glucose Reference Range is dependent on time and content of last meal. Glucose of more than 200 mg/dL in a nonstressed, ambulatory subject supports the diagnosis of Diabetes Mellitus. PERFORMED BY: [address] [place] [address] PATHOLOGIST MAINTENANCE MECHANIC SUPERVISOR ANDRE PERALTA M.D.Performed By: #### GLULS #### Point of Care testing ,Glucose [Mass/Vol]100 mg/dLAdventHealth East Orlando Physician GroupComment on above: Result Comment: Random Glucose Reference Range is dependent on time and content of last meal. Glucose of more than 200 mg/dL in a nonstressed, ambulatory subject supports the diagnosis of Diabetes Mellitus. PERFORMED BY: [address] [address] PATHOLOGIST MAINTENANCE MECHANIC SUPERVISOR ANDRE PERALTA M.D.Performed By: #### GLULS #### Point of Care testing ,Edjfltz0MbucyxVdf [facility] Physician GroupComment on above:Result Comment: Glu2: Result Not Confirmed PERFORMED BY: [address] [place] [address] PATHOLOGIST MAINTENANCE MECHANIC SUPERVISOR ANDRE PERALTA M.D.Performed By: #### GLULS ####Point of Care testing, Glucose [Mass/Vol]55 mg/dLOff scale [facility] Physician GroupComment on above:Result Comment: Random Glucose Reference Range is dependent on time and content of last meal. Glucose of more than 200 mg/dL in a nonstressed, ambulatory subject supports the diagnosis of Diabetes Mellitus.Performed By: #### GLULS ####Point of Care testing,INR in Platelet poor plasma by Coagulation assayOrdered By: Mikel Root on 44-47-1242RTN Coag (PPP) [Relative time]INR in Platelet poor plasma by Coagulation assayFirelands Regional Medical CenterComment on above:INR Therapeutic Range A) Pre- and Peroperative OAT started two weeks before surgery. NOT HIP SURGERY: 1.5 - 2.5 HIP SURGERY: 2 - 3B) Primary and secondary prevention of venous THROMBOSIS: 2 - 3C) Active venous thrombosis, pulmonary embolismand prevention of recurrent venous thrombosis: 2 - 3D) Prevention of arterial thromboembolismincluding patients with mechanical heart valves: 3 - 4.5No Panel InformationOrdered By: Mikel Root on 54-68-4112Hnahvxq Glucose CommentSee commentAdena Pike Medical CenterComment on above:Glu2: Result Not ConfirmedProthrombin time (PT)Ordered By: Mikel Root on 14-27-0971KQ Coag (PPP) [Time]Prothrombin time (PT)9.0-12.9[facility] Medical CenterComment on above:A hematocrit value greater than 55% may lead to inaccurate results in coagulation testing. Patientshaving hematocrit values >55% require a special collection tube for coagulation studies. Please contact the laboratory at [phone] for redraw instructions.aPTT in Platelet poor plasma by Coagulation assayOrdered By: Mikel Root on 29-22-1696hCKE Coag (PPP) [Time]Activated partial thromboplastin time (aPTT) in platelet poor plasma by coagulation a25.1-36.5FAccess Hospital DaytonComment on above:A hematocrit value greater than 55% may lead to inaccurate results in coagulation testing. Patientshaving hematocrit values >55% require a special collection tube for coagulation studies. Please contact the laboratory at [phone] for redraw instructions.Acanthocytes [Presence] in Blood by Light microscopyOrdered By: Mikel Root on 78-24-9790Wqwwgtnsdhpb LM Ql (Bld)SlightAdena Pike Medical CenterAcanthocytes LM Ql (Bld)Acanthocytes [Presence] in Blood by Light microscopyAdena Pike Medical CenterAnisocytosis LM Ql (Bld) Ordered By: Mikel Root on 49-75-4938Itsakwersasg Ql (Bld) Anisocytosis [Presence] in Blood by Light microscopyAdena Pike Medical CenterAnisocytosis [Presence] in Blood by Light microscopyOrdered By: Mikel Root on 60-61-8661Mipgdgokogoe Ql (Bld)SlightNormalAdena Pike Medical CenterComment on above:Performed By: #### BMP, DIFF CBC ####[facility] [address] [place] [address] USABasic Metabolic Panelon 55-59-6503TWU/1.73 sq M.predicted MDRD (S/P/Bld) [Vol rate/Area]mL/min/{1.73_m2}NormalThe [facility] Health Physician GroupComment on above: Performed By: #### BMP, DIFF CBC ####[facility] [address] [place] [address] USABasophils Auto (Bld) [#/Vol]Ordered By: Mikel Root on 94-47-4978Sowroimms (Bld) [#/Vol]N/[facility] HospitalBasophils (Bld) [#/Vol]Automated basophil countAdena Pike Medical CenterBasophils/100 WBC Auto (Bld)Ordered By: Mikel Root on 64-59-2834Suatvffun/100 WBC (Bld)N/[facility] Basophils/100 WBC (Bld)Automated basophil %[facility] Basophils/100 WBC Manual cnt (Bld)Ordered By: Mikel Root on 42-38-8394Ckhlaeize/100 WBC (Bld)Basophils/100 leukocytes in Blood by Manual count0Access Hospital DaytonBasophils/100 leukocytes in Blood by Manual countOrdered By: Mikel Root on 55-17-2331Fqyrocjcr/100 WBC (Bld)1 %Normal079 Richards StreetComment on above:Performed By: #### BMP, DIFF CBC ####[facility] [place] [address] USACalcium [Mass/volume] in Serum or PlasmaOrdered By: Mikel Root on 76-35-7871Jazaojp [Mass/Vol]8.7 mg/dLNormal8.6-10.3FAccess Hospital DaytonComment on above:Result Comment: PERFORMED BY: [facility] [address] [place] [address] PATHOLOGIST MAINTENANCE MECHANIC SUPERVISOR AIRAM MAST M.D.Performed By: #### BMP, DIFF CBC ####[facility] [address] [place] [address] USACalcium [Mass/Vol]Calcium [Mass/volume] in Serum or Plasma8.6-10.3FAccess Hospital DaytonCarbon dioxide, total [Moles/volume] in Serum or PlasmaOrdered By: Mikel Root on 62-01-4100BK4 [Moles/Vol]26.6 mmol/WFwyfol73.0-31.0[facility] Medical CenterComment on above:Performed By: #### BMP, DIFF CBC ####[address] [address] USACO2 [Moles/Vol]Carbon dioxide, total [Moles/volume] in Serum or Nkvnlv96.0-31.0 [facility] Medical CenterChloride [Moles/volume] in Serum or Plasma Ordered By: Mikel Root on 34-08-9566Iktonovf [Moles/Vol]95 mmol/L Cas21-276TxvkuwnxxAdena Pike Medical CenterComment on above:Performed By: #### BMP, DIFF CBC ####[address] [address] USAChloride [Moles/Vol]Chloride [Moles/volume] in Serum or DpeppzDry97-623 [facility] Medical CenterCreatinine [Mass/volume] in Serum or Plasma Ordered By: Mikel Root on 45-55-1032Ggbjtjiqtw [Mass/Vol]1.06 mg/dL Normal0.70-1.30[facility]ike Medical CenterComment on above:Performed By: #### BMP, DIFF CBC ####[address] [place] [address] USACreatinine [Mass/Vol]Creatinine [Mass/volume] in Serum or Plasma 0.70-1.30[facility] Medical CenterDiff and CBCon 28-95-7176Ztihvsmtqbwh SlightAdventHealth East Orlando Physician GroupComment on above:Performed By: #### BMP, DIFF CBC ####[address] [address] USAHypochromasiaMarkedAdventHealth East Orlando Physician GroupComment on above: Performed By: #### BMP, DIFF CBC ####[address] [address] USAMean Corpuscular HGB Conc32.2 g/dLLow32.5-35.6The [facility] Physician GroupComment on above:Performed By: #### BMP, DIFF CBC ####[address] [address] [place] MicrocytosisSAtrium Health Physician GroupComment on above:Performed By: #### BMP, DIFF CBC ####[address] [address] USAPlatelet EstimateNormalNormOrlando Health Arnold Palmer Hospital for Children Physician GroupComment on above:Performed By: #### BMP, DIFF CBC ####[address] [address] USAPlatelet Morphology NormalNoTri-County Hospital - Williston Physician GroupComment on above:Result Comment: PERFORMED BY: [facility] [address] [place] [address] PATHOLOGIST MAINTENANCE MECHANIC SUPERVISOR AIRAM MAST M.D.Performed By: #### BMP, DIFF CBC ####[address] [address] USAPoikilocytosisModerateAdventHealth East Orlando Physician GroupComment on above:Performed By: #### BMP, DIFF CBC ####[address] [address] [place] PolychromasiaSAtrium Health Physician GroupComment on above:Performed By: #### BMP, DIFF CBC ####[facility] [address] [place] [address] USASchistocytesNovant Health Pender Medical Center Physician GroupComment on above:Performed By: #### BMP, DIFF CBC ####[facility] [address] [place] [address] USATarget CellsNovant Health Pender Medical Center Physician GroupComment on above:Performed By: #### BMP, DIFF CBC ####[facility] [address] [place] [address] USAECG 12 lead ECGon 88-10-2556JFO 12 lead ECGASHTABULA GENERAL [facility] [place] [address] [place] [address] Electrocardiograph Report Signed Patient: Manolo Roche MR#: [id number] 353 : 1935 Acct:[id number] Age/Sex: 89 / M ADM Date: 05/16/24 Loc: Room: Type: [facility] Attending Dr: Abdulaziz Root MD Ordering Provider: [...] changes have occurred Confirmed by CONRAD OGLESBY [facility] ([id number]) on 05/16/2024 2:20:20 PM Referred By: Electronically Signed By: HARSH MARTINES MD FAC Transcribed By: MUS Signed By Harsh Martines MD, FACC 05/16/24 1420[facility] Physician GroupEosinophils Auto (Bld) [#/Vol] Ordered By: Mikel Root on 81-44-8927Enasqwvplvj (Bld) [#/Vol]N/A [facility] Medical CenterEosinophils (Bld) [#/Vol]Automated eosinophil countAdena Pike Medical CenterEosinophils/100 WBC Auto (Bld)Ordered By: Mikel Root on 13-46-3732Gyfhvtdjhxd/100 WBC (Bld)N/AFAccess Hospital DaytonEosinophils/100 WBC (Bld)Automated eosinophil %[facility] Medical CenterEosinophils/100 WBC Manual cnt (Bld)Ordered By: Mikel Root on 77-18-1443Vxzdsiuqvwk/100 WBC (Bld)Eosinophils/100 leukocytes in Blood by Manual count1-[facility] Eosinophils/100 leukocytes in Blood by Manual countOrdered By: Mikel Root on 39-30-2304Vjrilupazlb/100 WBC (Bld)2 %Normal1-Access Hospital DaytonComment on above:Performed By: #### BMP, DIFF CBC ####[facility] [address] [place] [id number] USAErythrocyte distribution width Auto (RBC) [Ratio]Ordered By: Mikel Root on 76-33-6253Gnbceqrztoa distribution width (RBC) [Ratio]Erythrocyte distribution width [Ratio] by Automated xshfgHukj50.0-14.8[facility] Erythrocyte distribution width [Ratio] by Automated countOrdered By: Mikel Root on 75-58-7977Zwopoajtixs distribution width (RBC) [Ratio]21.2 %High12.0-14.8[facility] Medical CenterComment on above:Performed By: #### BMP, DIFF CBC ####[facility] [address] [place], [place] [address] USAErythrocyte morphology finding [Identifier] in BloodOrdered By: Mikel Root on 94-77-2936PFM morphology finding Nom (Bld)RBC morphology [facility] Medical CenterErythrocytes [#/volume] in Blood by Automated countOrdered By: Mikel Root on 27-25-6643JJU (Bld) [#/Vol]4.81 10*6/uLNormal3.90-5.60[facility] Medical CenterComment on above: Performed By: #### BMP, DIFF CBC ####[facility] [address] [place] [address] USAGlucose [Mass/volume] in Serum or PlasmaOrdered By: Mikel Root on 45-35-0117Zodgjlq [Mass/Vol]649 mg/dLOff scale high 70-100A[facility]ike Medical CenterComment on above:Critical Result Called to and read back by: DREW BUITRAGO at: 05/16/2024 13:51 by:NOEL recommended re ference rangeRandom Glucose Reference Range is dependent on time and content of last meal. Glucose of more than 200 mg/dL in a nonstressed, ambulatory subject supports the diagnosis of Diabetes Mellitus.Result Comment: Critical Result Called to and read back by: DREW BUITRAGO at: 05/16/2024 13:51 by:RG Random Glucose Reference Range is dependent on time and content of last meal. Glucose of more than 200 mg/dL in a nonstressed, ambulatory subject supports the diagnosis of Diabetes Mellitus. ADA recommended reference rangePerformed By: #### BMP, DIFF CBC ####[facility] [address] [place] [address] USAGlucose [Mass/Vol] Glucose [Mass/volume] in Serum or PlasmaCritically ylbh66-910OewfqnduiAdena Pike Medical CenterComment on above:Critical Result Called to and read back by: DREW BUITRAGO at: 05/16/2024 13:51 by:TANIAADA recommended reference rangeRandom Glucose Reference Range is dependent on time and content of last meal. Glucose of more than 200 mg/dL in a nonstressed, ambulatory subject supports the diagnosis of Diabetes Mellitus.Hematocrit Auto (Bld) [Volume fraction]Ordered By: Mikel oRot on 32-84-7449Cdeorgoswd (Bld) [Volume fraction]Hematocrit [Volume Fraction] of Blood by Automated cnpibDiv30.8-50.0A[facility] Pike Medical CenterHematocrit [Volume Fraction] of Blood by Automated countOrdered By: Mikel Root on 03-77-1095Cdyaqreeye (Bld) [Volume fraction]38.1 %Low38.8-50.0A[facility] Pike Medical CenterComment on above:Performed By: #### BMP, DIFF CBC ####[facility] [address] [place] [address] USAHemoglobin [Mass/volume] in BloodOrdered By: Mikel Root on 99-24-8357Whqtzlxyof (Bld) [Mass/Vol]12.3 g/dLLow13.0-17.0[facility] Pike Medical CenterComment on above:Performed By: #### BMP, DIFF CBC ####[facility] [address] [place] [address] USAHemoglobin (Bld) [Mass/Vol]Hemoglobin [Mass/volume] in QhvxjNdx19.0-17.0[facility] Medical CenterHypochromia LM Ql (Bld)Ordered By: Mikel Root on 57-51-9044Rvhnotpsbgc Ql (Bld)MarkedAdena Pike Medical CenterHypochromia Ql (Bld)Hypochromia [Presence] in Blood by Light microscopyAdena Pike Medical CenterLeukocytes [#/volume] corrected for nucleated erythrocytes in Blood by Automated counOrdered By: Mikel Root on 91-21-4606CAR corrected for nucl RBC Auto (Bld) [#/Vol]5.0 10*3/uL4.1-10.5FAccess Hospital DaytonWBC corrected for nucl RBC Auto (Bld) [#/Vol]Leukocytes [#/volume] corrected for nucleated erythrocytes in Blood by Automated coun4.1-10.5 [facility] Medical CenterLeukocytes [#/volume] in Blood by Automated countOrdered By: Mikel Root on 47-66-4251GRQ (Bld) [#/Vol]5.0 10*3/uLNormal4.1-10.5FAccess Hospital DaytonComment on above:Performed By: #### BMP, DIFF CBC ####[facility] [address] [place] [address] USALymphocytes Auto (Bld) [#/Vol]Ordered By: Mikel Root on 73-23-9527Gtfbzaapjxc (Bld) [#/Vol]N/AFAccess Hospital DaytonLymphocytes (Bld) [#/Vol]Lymphocytes [#/volume] in Blood by Automated countAdena Pike Medical CenterLymphocytes/100 WBC Auto (Bld) Ordered By: Mikel Root on 32-67-4881Jatumlllxpr/100 WBC (Bld)N/A [facility] Medical CenterLymphocytes/100 WBC (Bld)Lymphocytes/100 leukocytes in Blood by Automated countAdena Pike Medical Center Lymphocytes/100 WBC Manual cnt (Bld)Ordered By: Mikel Root on 02-66-7086Hbakqwzvcfv/100 WBC (Bld)Lymphocytes/100 leukocytes in Blood by Manual wsdzy57-82NfvssxjqpAdena Pike Medical CenterLymphocytes/100 leukocytes in Blood by Manual countOrdered By: Mikel Root on 63-13-5284Wjlixhpifyz/100 WBC (Bld)23 %Wyvscj30-53YwmfzwwzjAdena Pike Medical CenterComment on above: Performed By: #### BMP, DIFF CBC ####[facility] [address] [place] [address] [facility] Auto (RBC) [Entitic mass]Ordered By: Mikel Root on 40-40-3861AWM (RBC) [Entitic mass]MCH [Entitic mass] by Automated orqfbPgk29.5-35.2FMarion Hospital [Entitic mass] by Automated countOrdered By: Mikel Root on 12-72-4678EMY (RBC) [Entitic mass]25.5 pgLow27.5-35.2FAccess Hospital DaytonComment on above:Performed By: #### BMP, DIFF CBC ####[facility] [address] [place] [id number] [facility] Auto (RBC) [Mass/Vol]Ordered By: Mikel Root on 68-03-7142ZFPV (RBC) [Mass/Vol]32.2 g/dLLow32.5-35.6 [facility] MemorialHC (RBC) [Mass/Vol]MCHC [Mass/volume] by Automated qxfgpZas25.5-35.6FWexner Medical CenterV Auto (RBC) [Entitic vol]Ordered By: Mikel Root on 89-73-5993QRB (RBC) [Entitic vol]MCV [Entitic volume] by Automated mibwyHbm26.5-101[facility] MemorialV [Entitic volume] by Automated countOrdered By: Mikel Root on 99-21-5523IFA (RBC) [Entitic vol]79.2 fLLow83.5-101Adena Pike Medical CenterComment on above:Performed By: #### BMP, DIFF CBC ####[place] [address] USAManual blood segmented neutrophils/100 leukocytesOrdered By: Mikel Root on 86-72-5609Eawdakqqd neutrophils/100 WBC (Bld)67 %Dnimys75-36SpzcwlqbcAdena Pike Medical CenterComment on above:Performed By: #### BMP, DIFF CBC ####[place] [address] USAMicrocytes LM Ql (Bld)Ordered By: Mikel Root on 08-10-8569Dmhcfowmnv Ql (Bld)Slight [facility] Medical CenterMicrocytes Ql (Bld)Microcytes [Presence] in Blood by Light microscopyAdena Pike Medical CenterMonocytes Auto (Bld) [#/Vol]Ordered By: Mikel Root on 37-93-6662Cutgngdmg (Bld) [#/Vol] N/AFAccess Hospital DaytonMonocytes (Bld) [#/Vol]Automated blood monocyte countAdena Pike Medical CenterMonocytes/100 WBC Auto (Bld) Ordered By: Mikel Root on 41-51-1842Oeinerifn/100 WBC (Bld)N/A [facility] CenterMonocytes/100 WBC (Bld)Automated monocyte % [facility] Medical CenterMonocytes/100 WBC Manual cnt (Bld)Ordered By: Mikel Root on 88-13-2378Qytztuymr/100 WBC (Bld)Monocytes/100 leukocytes in Blood by Manual count2-[facility] Monocytes/100 leukocytes in Blood by Manual countOrdered By: Mikel Root on 34-34-3158Jjhxgnmbd/100 WBC (Bld)8 %Normal2-[facility]ike Medical CenterComment on above:Performed By: #### BMP, DIFF CBC ####[facility] [place] [address] USANeutrophils Auto (Bld) [#/Vol]Ordered By: Mikel Root on 30-59-9356Ceygadjdtab (Bld) [#/Vol]N/[facility] HospitalNeutrophils (Bld) [#/Vol]Neutrophils [#/volume] in Blood by Automated countAdena Pike Medical Center Neutrophils/100 WBC Auto (Bld)Ordered By: Mikel Root on 05-16-2024 Neutrophils/100 WBC (Bld)N/[facility] HospitalNeutrophils/100 WBC (Bld)Automated neutrophil %[facility] Medical CenterNo Panel InformationOrdered By: Mikel Root on 46-53-5192Vserjuadi GFR (CKD-EPI)> 60.0 mL/MinAdena Pike Medical CenterPharmacy Creatinine Clearance (ChemN/[facility] HospitalNucleated erythrocytes [Presence] in Blood by Automated countOrdered By: Mikel Root on 84-47-7900Bmswszxov RBC Auto Ql (Bld)N/[facility] Nucleated RBC Auto Ql (Bld)Nucleated erythrocytes [Presence] in Blood by Automated countAdena Pike Medical CenterPlatelet adequacy [Presence] in Blood by Light microscopyOrdered By: Mikel Root on 05-16-2024 Platelets LM Ql (Bld)NormalNoMercy Health Kings Mills HospitalPlatelets LM Ql (Bld)Platelet adequacy [Presence] in Blood by Light microscopyNoMercy Health Kings Mills HospitalPlatelet mean volume Auto (Bld) [Entitic vol]Ordered By: Mikel Root on 52-18-7629Huolokph mean volume (Bld) [Entitic vol] Platelet mean volume [Entitic volume] in Blood by Automated countHigh6.6-10.1 [facility] Medical CenterPlatelet mean volume [Entitic volume] in Blood by Automated countOrdered By: Mikel Root on 03-81-0427Dmqlooiu mean volume (Bld) [Entitic vol]11.3 fLHigh6.6-10.1FAccess Hospital Dayton Comment on above:Result Comment: PERFORMED BY: [facility] [address] [place] [id number] PATHOLOGIST MAINTENANCE MECHANIC SUPERVISOR AIRAM MAST M.D.Performed By: #### BMP, DIFF CBC ####[facility] [place] [id number] USAPlatelet morphology finding [Identifier] in BloodOrdered By: Mikel Root on 98-24-4651Ekybibvo morphology finding Nom (Bld)NormalProMedica Defiance Regional Hospital Platelet morphology finding Nom (Bld)Platelet morphology finding [Identifier] in BloodNoMercy Health Kings Mills HospitalPlatelets Auto (Bld) [#/Vol]Ordered By: Mikel Root on 18-98-7475Cdsaojtcy (Bld) [#/Vol]Platelets [#/volume] in Blood by Automated nrxix818-521J[address] Platelets [#/volume] in Blood by Automated countOrdered By: Mikel Root on 49-77-4246Vsszvoxbo (Bld) [#/Vol]249 10*3/fENrwvoh193-596KnhglfoqzAdena Pike Medical CenterComment on above:Performed By: #### BMP, DIFF CBC ####[facility] [address] [place] [id number] [facility] Poikilocytosis [Presence] in Blood by Light microscopyOrdered By: Mikel Root on 98-17-6577Tvghptqhywahwf LM Ql (Bld)ModerateAdena Pike Medical CenterPoikilocytosis LM Ql (Bld)Poikilocytosis [Presence] in Blood by Light microscopyAdena Pike Medical CenterPolychromasia [Presence] in Blood by Light microscopyOrdered By: Mikel Root on 05-16-2024 Polychromasia LM Ql (Bld)SlightAdena Pike Medical CenterPolychromasia LM Ql (Bld)Polychromasia [Presence] in Blood by Light microscopyAdena Pike Medical CenterPotassium [Moles/volume] in Serum or PlasmaOrdered By: Mikel Root on 54-37-2105Ryiwryacn [Moles/Vol]5.4 mmol/LHigh3.5-5.1 [facility] CenterComment on above:Performed By: #### BMP, DIFF CBC ####[facility] Potassium [Moles/Vol]Potassium [Moles/volume] in Serum or PlasmaHigh3.5-5.1 [facility] Medical CenterRBC Auto (Bld) [#/Vol]Ordered By: Mikel Root on 60-54-8760THC (Bld) [#/Vol]Erythrocytes [#/volume] in Blood by Automated count3.90-5.60A[facility] Medical CenterRBC morphologyOrdered By: Mikel Root on 03-71-3582CXW morphology finding Nom (Bld)N/A [facility] Healthchistocytes [Presence] in Blood by Light microscopyOrdered By: Mikel Root on 39-66-5261Vhhunslazpfl LM Ql (Bld)[facility] Limachistocytes LM Ql (Bld)Schistocytes [Presence] in Blood by Light microscopyAdena Pike Medical Center Segmented neutrophils/100 WBC Manual cnt (Bld)Ordered By: Mikel Root on 92-21-8873Uvsrvhhde neutrophils/100 WBC (Bld)Manual blood segmented neutrophils/100 oemjppcxdg92-97BjaypzuxhMadison Healtherum or plasma anion gap determinationOrdered By: Mikel Root on 99-14-6389Mehhg gap [Moles/Vol]11.8 mmol/LNormal6.0-15.0A[facility] Medical CenterComment on above:Performed By: #### BMP, DIFF CBC ####[facility] [address] [place] [address] USAAnion gap [Moles/Vol] Serum or plasma anion gap determination6.0-15.0[facility] Sodium [Moles/volume] in Serum or PlasmaOrdered By: Mikel Root on 10-83-9441Rxtjaw [Moles/Vol]128 mmol/OKae364-748SydqbhigzAdena Pike Medical CenterComment on above:Performed By: #### BMP, DIFF CBC ####[address] [address] USASodium [Moles/Vol]Sodium [Moles/volume] in Serum or GsahxtSfy591-115PmrclqphbAdena Pike Medical Center Target cellsOrdered By: Mikel Root on 37-95-5008Uyeege cells LM Ql (Bld)SlightAdena Pike Medical CenterTarget cells [Presence] in Blood by Light microscopyOrdered By: Mikel Root on 18-63-5885Jeyesl cells LM Ql (Bld)Target cellsAdena Pike Medical CenterUrea nitrogen [Mass/volume] in Serum or PlasmaOrdered By: Mikel Root on 27-61-8839Dvbo nitrogen [Mass/Vol]21 mg/dLNormal7-25A[facility] Pike Medical CenterComment on above:Performed By: #### BMP, DIFF CBC ####[facility] [address] [place] [address] [facility] HOSPITALUrea nitrogen [Mass/Vol]Urea nitrogen [Mass/volume] in Serum or Plasma02-02[facility] WBC Auto (Bld) [#/Vol]Ordered By: Mikel Root on 71-19-1386GOR (Bld) [#/Vol]Leukocytes [#/volume] in Blood by Automated count4.1-10.5FAccess Hospital Dayton36on 37-47-495955QysocDr. Chirag Merritt's recommendation for an EGD was [...] disease as initially recommended. Best regards, Dr. Taylor of [facility]36on [phone] from Dr. Marie Tejeda's office (Internal Medicine) called to make sure that a message had been received to Dr. Beard regarding this patient and concerns Dr. Tejeda has regarding the patient having an EGD to confirm resolution of H. Pylori. This technical report writer could not find any message in chart or in sales assistant entertainment and media, so this message was created. The following [...] A note will be sent to the pattern grader supervisor to discuss the possibility of using a stool study instead of a biopsy to avoid disturbing the scarred area. Please advise and respond to Dr. Tejeda through this telephone call note or via a letter, as to what Dr. Beard's recommendation is regarding the above inquiry. Thank you.[facility] CenterTelephoneon [id number] Manolo Roche 1935 M Date Provider Department Center 04/26/2024 18970-FNNUUXTIM CAMPBELL MP [facility] No family history on fileNormalUniversity of Lake Granbury Medical CenterHbA1c (Bld) [Mass fraction]on 23-15-7997BLSA HealthcareLaboratory - Hematology and Cell countson 62-78-7090XeH3w (Bld) [Mass fraction]9.8 %NOMS HealthcareOffice Visiton 21-54-5119Hohekj-up [id number] Manolo Roche 1935 M Date Provider Department Center 04/05/2024 Nadeen-PATRICK BEARD [facility] No family history on file Level of Service:85016 IN OFFICE/OUTPATIENT NEW LOW MDM 30 MINUTES (GC) Reason for Visit and Comments: gastrointestinal ulcer [Other] - Pt says he's supposed to receive a procedure.[facility] CenterECH echo transthoracicon 42-33-4187AIA echo transthoracicASHTABULA GENERAL [place] [address] Echocardiogram Signed Patient: Manolo Roche MR#: [id number] : 1935 Acct:[id number] Age/Sex: 88 / M ADM Date: 03/09/24 Loc: Room: Type: [facility] Attending Dr: Anat Perez MD Ordering Provider: Anat Perez MD Date of Service: 03/09/24 ECH/ECH echo transthoracic: I25.10 - Atherosclerotic heart disease of [place] coronary... Copies to: Anat Perez MD Manolo Westfall Patient Location: : 1935 Gender: Male (MM/DD/YYYY) Age: 88 Years Ordering Physician: Anat Perez Height: 70 in Weight: 140.875 lb Performed By: MARK Hearn BSA: 1.80 m2 BP: 144 / 83 mmHg HR: 53 bpm Reason For Study: I25.10 - Atherosclerotic heart disease of [place] coronary... History: HTN, DM, Former Smoker, CAD, Stents, Life Vest, Cardiomyopathy + + Interpretation Summary Ejection Fraction = 25-30%. There [...] 25.0 cm + + + + + + + : Electronically : : : : signed by: Anat : : Ana : : : : on: 03/09/2024, : : : : 11:53 PM : + + + Transcribed By: SCV Performed At: 03/09/244 Signed By: Anat Perez MD 03/09/24 2353[facility] Erythrocyte distribution width Auto (RBC) [Ratio]Ordered By: Warren Gross on 16-46-4190Dlvtdmfwktx distribution width (RBC) [Ratio]20.0 %High12.0-14.8 [facility] Medical CenterFerritin [Mass/volume] in Serum or Plasma Ordered By: Anat Perez on 68-49-2336Auofoary [Mass/Vol]19.8 ng/mLLow 23.9-336.2FAccess Hospital DaytonHematocrit Auto (Bld) [Volume fraction]Ordered By: Warren Gross on 65-10-8951Wwqqjtrrdb (Bld) [Volume fraction]26.7 %Low38.8-50.0A[facility] Medical CenterHemoglobin [Mass/volume] in BloodOrdered By: Warren Gross on 31-33-6241Acrdrbcsol (Bld) [Mass/Vol]8.8 g/dLLow13.0-17.0A[facility] Medical CenterIron [Mass/volume] in Serum or PlasmaOrdered By: Anat Perez on 03-01-4480Xuwb [Mass/Vol]20 ug/xFTlp30-666ShnizzjzvAdena Pike Medical CenterIron binding capacity [Mass/volume] in Serum or PlasmaOrdered By: Anat Perez on 02-16-2024 Iron binding capacity [Mass/Vol]402 ug/hT989-407QewhratpdAdena Pike Medical CenterIron saturation [Mass Fraction] in Serum or PlasmaOrdered By: Anat Perez on 24-91-5481Mpwh saturation [Mass fraction]5.0 %Sza95-78QahxizhbzAdena Pike Medical CenterLeukocytes [#/volume] corrected for nucleated erythrocytes in Blood by Automated counOrdered By: Warren Gross on 12-39-4742BTQ corrected for nucl RBC Auto (Bld) [#/Vol]5.8 10*3/uL4.1-10.5FMarion Hospital Auto (RBC) [Entitic mass]Ordered By: Warren Gross on 57-36-8154JEI (RBC) [Entitic mass]26.8 pgLow27.5-35.2FWexner Medical CenterHC Auto (RBC) [Mass/Vol]Ordered By: Warren Gross on 25-26-4293QENQ (RBC) [Mass/Vol]32.9 g/dL32.5-35.6FWexner Medical CenterV Auto (RBC) [Entitic vol]Ordered By: Warren Gross on 34-53-8027DQE (RBC) [Entitic vol]81.4 fLLow83.5-101A[facility] Medical CenterPlatelet mean volume Auto (Bld) [Entitic vol]Ordered By: Warren Gross on 06-07-1509Zhhnfsyy mean volume (Bld) [Entitic vol]10.3 fLHigh6.6-10.1FAccess Hospital DaytonPlatelets Auto (Bld) [#/Vol]Ordered By: Warren Gross on 71-02-6980Qzknrivop (Bld) [#/Vol]304 10*3/pU014-730GiajjjzjoAdena Pike Medical CenterRBC Auto (Bld) [#/Vol]Ordered By: Warren Gross on 84-98-5410HIH (Bld) [#/Vol]3.28 10*6/uLLow3.90-5.60A[facility] Medical CenterTransferrin [Mass/volume] in Serum or PlasmaOrdered By: Anat Perez on 04-76-4122Oeqmschpmwp [Mass/Vol]287 mg/sB293-291NhtgezofuAdena Pike Medical CenterErythrocyte distribution width Auto (RBC) [Ratio]Ordered By: Warren Gross on 59-95-1839Ymvvoywfmgn distribution width (RBC) [Ratio]19.9 % High12.0-14.8A[facility] Pike Medical CenterHematocrit Auto (Bld) [Volume fraction]Ordered By: Warren Gross on 19-01-0676Fjfslyazhi (Bld) [Volume fraction]26.4 %Low38.8-50.0[facility] Medical CenterHemoglobin [Mass/volume] in BloodOrdered By: Warren Gross on 92-73-0715Hxduatdise (Bld) [Mass/Vol]8.7 g/dLLow13.0-17.0A[facility] Medical CenterLeukocytes [#/volume] corrected for nucleated erythrocytes in Blood by Automated coun Ordered By: Warren Gross on 63-24-2589HZS corrected for nucl RBC Auto (Bld) [#/Vol]7.1 10*3/uL4.1-10.5FMarion Hospital Auto (RBC) [Entitic mass]Ordered By: Warren Gross on 83-66-2923CIK (RBC) [Entitic mass]26.8 pgLow27.5-35.2FTwin City Hospital Auto (RBC) [Mass/Vol]Ordered By: Warren Gross on 53-53-9040IUCR (RBC) [Mass/Vol]32.9 g/dL32.5-35.6FAccess Hospital DaytonMCV Auto (RBC) [Entitic vol]Ordered By: Warren Gross on 46-82-5360MXN (RBC) [Entitic vol]81.6 fLLow83.5-101A[facility] Medical CenterPlatelet mean volume Auto (Bld) [Entitic vol]Ordered By: Warren Gross on 05-87-9855Mziqmiin mean volume (Bld) [Entitic vol]9.6 fL6.6-10.1FAccess Hospital DaytonPlatelets Auto (Bld) [#/Vol]Ordered By: Warren Gross on 65-79-2500Kshpwovvp (Bld) [#/Vol]278 10*3/fH912-648AyohmzqyvAdena Pike Medical CenterRBC Auto (Bld) [#/Vol]Ordered By: Warren Gross on 58-41-8667MYA (Bld) [#/Vol]3.23 10*6/uLLow3.90-5.60[facility] Medical CenterErythrocyte distribution width Auto (RBC) [Ratio]Ordered By: Warren Gross on 02-11-2024 Erythrocyte distribution width (RBC) [Ratio]20.4 %High12.0-14.8A[facility]ike Medical CenterHematocrit Auto (Bld) [Volume fraction]Ordered By: Warren Gross on 53-56-7341Ykgxkrktmw (Bld) [Volume fraction]26.8 %Low38.8-50.0 [facility] CenterHemoglobin [Mass/volume] in BloodOrdered By: Warren Gross on 40-45-8720Inpdvmbxhy (Bld) [Mass/Vol]8.8 g/dLLow13.0-17.0 [facility] CenterLeukocytes [#/volume] corrected for nucleated erythrocytes in Blood by Automated counOrdered By: Warren Gross on 46-46-5000PFZ corrected for nucl RBC Auto (Bld) [#/Vol]6.4 10*3/uL4.1-10.5FAccess Hospital DaytonMCH Auto (RBC) [Entitic mass]Ordered By: Warren Gross on 80-56-7546EPH (RBC) [Entitic mass]26.8 pgLow27.5-35.2FAccess Hospital DaytonMC Auto (RBC) [Mass/Vol]Ordered By: Warren Gross on 81-28-0267ZQRY (RBC) [Mass/Vol]32.8 g/dL32.5-35.6FAccess Hospital DaytonMCV Auto (RBC) [Entitic vol]Ordered By: Warren Gross on 26-77-0700NFZ (RBC) [Entitic vol]81.9 fLLow83.5-101A[facility] Medical CenterPlatelet mean volume Auto (Bld) [Entitic vol]Ordered By: Warren Gross on 59-84-7346Ocujpfrg mean volume (Bld) [Entitic vol]10.2 fLHigh6.6-10.1FAccess Hospital DaytonPlatelets Auto (Bld) [#/Vol]Ordered By: Warren Gross on 30-87-6861Qtfdjhdko (Bld) [#/Vol]228 10*3/kB184-957FswznhshuAdena Pike Medical CenterRBC Auto (Bld) [#/Vol]Ordered By: Warren Gross on 12-12-3922BFU (Bld) [#/Vol]3.27 10*6/uLLow3.90-5.60A[facility] Medical CenterBasophils Auto (Bld) [#/Vol]Ordered By: Sushant Cordon on 22-71-9168Qpjliprje (Bld) [#/Vol]0.1 10*3/uL0.0-0.2FAccess Hospital DaytonBasophils/100 WBC Auto (Bld)Ordered By: Sushant Cordon on 05-51-4122Bsmeihbzv/100 WBC (Bld)1.3 %.[facility] Medical CenterCalcium [Mass/volume] in Serum or PlasmaOrdered By: Sushant Cordon on 01-02-3293Cowohow [Mass/Vol]8.1 mg/dLLow8.6-10.3FAccess Hospital DaytonCarbon dioxide, total [Moles/volume] in Serum or PlasmaOrdered By: Sushant Cordon on 60-14-6204IA9 [Moles/Vol]29.6 mmol/L21.0-31.0A[facility] Medical CenterChloride [Moles/volume] in Serum or PlasmaOrdered By: Sushant Cordon on 92-58-3100Dswbnukg [Moles/Vol]102 mmol/Q90-656RnyxtbqyoAdena Pike Medical CenterCreatinine [Mass/volume] in Serum or PlasmaOrdered By: Sushant Cordon on 60-42-0010Bnakzlrgbp [Mass/Vol]0.82 mg/dL0.70-1.30 [facility] CenterEosinophils Auto (Bld) [#/Vol]Ordered By: Sushant Cordon on 30-17-7566Qmmtkjhckkh (Bld) [#/Vol]0.4 10*3/uL0.0-0.45 [facility] CenterEosinophils/100 WBC Auto (Bld)Ordered By: Sushant Cordon on 66-57-4338Gpcqeeulzdd/100 WBC (Bld)7.1 %.[facility] Medical CenterErythrocyte distribution width Auto (RBC) [Ratio]Ordered By: Sushant Cordon on 64-85-4097Bojzvhnfgeb distribution width (RBC) [Ratio]19.3 %High12.0-14.8A[facility] Medical CenterGlucose Glucometer (BldC) [Mass/Vol]Ordered By: Warren Gross on 42-07-2323Tscqkua [Mass/Vol]382 mg/dLAdena Pike Medical CenterComment on above:Random Glucose Reference Range is dependent on time and content of last meal. Glucose of more than 200 mg/dL in a nonstressed, ambulatory subject supports the diagnosis of Diabetes Mellitus.Glucose [Mass/volume] in Serum or PlasmaOrdered By: Sushant Cordon on 96-75-0139Irytcuw [Mass/Vol]320 mg/lBPsvq29-716XlorlcjjxAdena Pike Medical CenterComment on above:Delta: 171 on 02/07/24-620ADA recommended reference rangeRandom Glucose Reference Range is dependent on time and content of last meal. Glucose of more than 200 mg/dL in a nonstressed, ambulatory subj ect supports the diagnosis of Diabetes Mellitus.Hematocrit Auto (Bld) [Volume fraction]Ordered By: Sushant Cordon on 96-14-4200Facqoaxdxm (Bld) [Volume fraction]25.8 %Low38.8-50.0[facility] Medical CenterHemoglobin [Mass/volume] in BloodOrdered By: Sushant Cordon on 99-07-3508Amgqbvrytx (Bld) [Mass/Vol]8.8 g/dLLow13.0-17.0[facility] Medical CenterLeukocytes [#/volume] corrected for nucleated erythrocytes in Blood by Automated coun Ordered By: Sushant Cordon on 25-10-2383XSR corrected for nucl RBC Auto (Bld) [#/Vol]5.7 10*3/uL4.1-10.5FAccess Hospital DaytonLymphocytes Auto (Bld) [#/Vol]Ordered By: Sushant Cordon on 25-10-4894Abyqndqtcmh (Bld) [#/Vol]1.3 10*3/uL1.00-4.8A[facility] Medical CenterLymphocytes/100 WBC Auto (Bld)Ordered By: Sushant Cordon on 07-31-8962Zmxcygpnynu/100 WBC (Bld)22.3 %.[facility] Auto (RBC) [Entitic mass] Ordered By: Sushant Cordon on 08-15-3891EVY (RBC) [Entitic mass]27.1 pgLow 27.5-35.2FAccess Hospital DaytonMCHC Auto (RBC) [Mass/Vol]Ordered By: Sushant Cordon on 55-26-6453AMKW (RBC) [Mass/Vol]33.9 g/dL32.5-35.6 [facility] CenterMCV Auto (RBC) [Entitic vol]Ordered By: Sushant Cordon on 84-15-5253KCK (RBC) [Entitic vol]79.9 fLLow83.5-101 [facility] CenterMagnesium [Mass/volume] in Serum or Plasma Ordered By: Sushant Cordon on 16-85-6150Llykxqqej [Mass/Vol]1.8 mg/dLLow 1.9-2.7FAccess Hospital DaytonMonocytes Auto (Bld) [#/Vol]Ordered By: Sushant Cordon on 24-47-8037Wrdnpczjv (Bld) [#/Vol]1.0 10*3/uLHigh0.0-0.8 [facility] CenterMonocytes/100 WBC Auto (Bld)Ordered By: Sushant Cordon on 51-14-7836Weyyafnwn/100 WBC (Bld)17.6 %.[facility] Medical CenterNeutrophils Auto (Bld) [#/Vol]Ordered By: Sushant Cordon on 87-91-0077Xnivjxnakmg (Bld) [#/Vol]3.0 10*3/uL1.8-7.7FAccess Hospital DaytonNeutrophils/100 WBC Auto (Bld)Ordered By: Sushant Codron on 70-68-7623Pyqefpjxiae/100 WBC (Bld)51.7 %.[facility] CenterNo Panel InformationOrdered By: Sushant Cordon on 02-08-2024 Estimated GFR (CKD-EPI)> 60.0 mL/MinAdena Pike Medical CenterPharmacy Creatinine Clearance (Chem58.45[facility] CenterNucleated erythrocytes [Presence] in Blood by Automated countOrdered By: Sushant Cordon on 43-31-8157Aokdvlbie RBC Auto Ql (Bld)0.2 /100{WBC}0-0.5FAccess Hospital DaytonPlatelet mean volume Auto (Bld) [Entitic vol]Ordered By: Sushant Cordon on 65-64-9484Gojhtcov mean volume (Bld) [Entitic vol]11.2 fLHigh6.6-10.1FAccess Hospital DaytonPlatelets Auto (Bld) [#/Vol] Ordered By: Sushant Cordon on 84-63-7985Ufedqbmyx (Bld) [#/Vol]180 10*3/uL 150-450[facility] CenterPotassium [Moles/volume] in Serum or PlasmaOrdered By: Sushant Cordon on 20-92-9466Zqspsyqbr [Moles/Vol]4.4 mmol/L3.5-5.1FAccess Hospital DaytonRBC Auto (Bld) [#/Vol]Ordered By: Sushant Cordon on 89-78-3464BOL (Bld) [#/Vol]3.23 10*6/uLLow3.90-5.60 [facility] Healtherum or plasma anion gap determinationOrdered By: Sushant Cordon on 36-09-6418Hkada gap [Moles/Vol]7.8 mmol/L6.0-15.0 [facility] Healthodium [Moles/volume] in Serum or PlasmaOrdered By: Sushant Cordon on 70-94-3167Gkmncb [Moles/Vol]135 mmol/FBmo834-178 [facility] CenterUrea nitrogen [Mass/volume] in Serum or Plasma Ordered By: Sushant Cordon on 25-65-1067Xcrc nitrogen [Mass/Vol]24 mg/dL -[facility] Medical CenterWBC Auto (Bld) [#/Vol]Ordered By: Sushant Cordon on 38-24-5151GUL (Bld) [#/Vol]5.7 10*3/uL4.1-10.5FAccess Hospital DaytonNo Panel InformationOrdered By: Warren Gross on 55-64-9584Aiwsobm Glucose #[address]/[facility] HospitalBedside Glucose CommentSee commentAdena Pike Medical CenterComment on above:Glu2: Will Repeat TestAlanine aminotransferase [Enzymatic activity/volume] in Serum or PlasmaOrdered By: Sushant Cordon on 13-34-5815YJN [Catalytic activity/Vol]12 U/L7-52[facility] CenterAlbumin [Mass/volume] in Serum or Plasma by Bromocresol green (BCG) dye binding methoOrdered By: Sushant Cordon on 31-91-9806Lfnpqqs BCG dye [Mass/Vol]3.2 g/dLLow3.5-5.7FAccess Hospital DaytonAlkaline phosphatase [Enzymatic activity/volume] in Serum or PlasmaOrdered By: Sushant Cordon on 34-43-7094NQY [Catalytic activity/Vol]94 U/P63-354MoglgqcehAdena Pike Medical CenterAspartate aminotransferase [Enzymatic activity/volume] in Serum or PlasmaOrdered By: Sushant Cordon on 22-14-3766CYH [Catalytic activity/Vol]15 U/Q84-38XnjnxoedfAdena Pike Medical CenterBilirubin.direct [Mass/volume] in Serum or PlasmaOrdered By: Sushant Cordon on 02-06-2024 Bilirubin.direct [Mass/Vol]0.20 mg/dLHigh0.03-0.18FAccess Hospital DaytonBilirubin.total [Mass/volume] in Serum or PlasmaOrdered By: Sushant Cordon on 27-20-3730Hbnldxfvq [Mass/Vol]1.2 mg/dLHigh0.3-1.0[facility] Medical CenterGlobulin Calc (S) [Mass/Vol]Ordered By: Sushant Cordon on 56-26-6849Gowotsir (S) [Mass/Vol]2.0 g/dLAdena Pike Medical CenterGlucose mean value [Mass/volume] in Blood Estimated from glycated hemoglobinOrdered By: Sushant Cordon on 24-05-7595Sbdkkac glucose Estimated from glycated hemoglobin (Bld) [Mass/Vol]194 mg/dLAdena Pike Medical CenterHemoglobin A1c percentageOrdered By: Sushant Cordon on 32-07-4844PqJ3b (Bld) [Mass fraction]8.4 %High4.3-5.6FAccess Hospital DaytonComment on above:Increased risk for diabetes: 5.7 - 6.4diabetes: >6.4glycemic control for adults with diabetes: <7.0No Panel Information Ordered By: Nayeli Jimenez on 32-14-1463Arlzhpk Glucose #3 CommentFollow hypoglycemicAdena Pike Medical CenterProtein [Mass/volume] in Serum or PlasmaOrdered By: Sushant Cordon on 14-60-7565Knznfit [Mass/Vol]5.2 g/dL Low6.4-8.9[facility] Healtherum or plasma albumin/globulin mass ratioOrdered By: Sushant Cordon on 07-61-5944Grvtdtd/Globulin [Mass ratio]1.6 {ratio}[facility] Healtherum or plasma non- glucuronidated bilirubin measurement (mass/volume)Ordered By: Sushant Cordon on 93-44-1048Cctbaiwjo.indirect [Mass/Vol]1.0 mg/dLAdena Pike Medical CenterTroponin I.cardiac [Mass/volume] in Serum or Plasma by Detection limit <= 0.01 ng/Ordered By: Sushant Cordon on 44-89-9279Kvoakgws I.cardiac DL <= 0.01 ng/mL [Mass/Vol]60.3 pg/mLHigh0.0-20.0[facility] Medical CenterComment on above:Critical Result : Called to and read back by: PRAKASH YAP at: 02/06/2024 09:42:22 by:CYNTHIAVitamin D+Metabolites [Mass/volume] in Serum or PlasmaOrdered By: Sushant Cordon on 80-26-3334Oxdzlwt D+Metabolites [Mass/Vol]25.0 ng/yPJzn89-728AhqsiaopfAdena Pike Medical Center Comment on above:VITAMIN D STATUS 25(OH)VITAMIN D RANGE (ng/mL) Deficient <20 Insufficient 20 to <06Xtqvgzatpd95 to 100Reference: Batsheva MF,Arcadio NC, Ramy MCGEE, et al. Evaluation,treatment, and prevention of vitamin D deficiency; an Endocrine Society clinical practice guideline. JCEM. 2010; 96 (7):1911-30.Acanthocytes [Presence] in Blood by Light microscopyOrdered By: Paige Luther on 36-18-3641Ecjubaopvfnx LM Ql (Bld)[facility] HospitalActivated partial thromboplastin time (aPTT) in platelet poor plasma by coagulation aOrdered By: Paige Luther on 20-54-3703wOND Coag (PPP) [Time]23.6 sLow25.1-36.5FAccess Hospital DaytonComment on above:A hematocrit value greater than 55% may lead to inaccurate results in coagulation testing. Patientshaving hematocrit values >55% require a special collection tube for coagulation studies. Please contact the laboratory at [phone] for redraw instructions.Alanine aminotransferase [Enzymatic activity/volume] in Serum or PlasmaOrdered By: Paige Luther on 72-58-9924LVG [Catalytic activity/Vol]15 U/L7-52[facility] CenterAlbumin [Mass/volume] in Serum or Plasma by Bromocresol green (BCG) dye binding methoOrdered By: Paige Luther on 82-74-3379Dogzwkv BCG dye [Mass/Vol]3.3 g/dLLow3.5-5.7FAccess Hospital DaytonAlkaline phosphatase [Enzymatic activity/volume] in Serum or PlasmaOrdered By: Paige Luther on 15-64-2114NDX [Catalytic activity/Vol]104 U/V15-290ActhhkcrjAdena Pike Medical CenterAnisocytosis LM Ql (Bld)Ordered By: Paige Luther on 68-17-1336Sadpzmfnmixl Ql (Bld)ModerateAdena Pike Medical CenterAspartate aminotransferase [Enzymatic activity/volume] in Serum or PlasmaOrdered By: Paige Luther on 04-94-7192JZV [Catalytic activity/Vol]15 U/L 13-39[facility] Medical CenterBasophils Auto (Bld) [#/Vol]Ordered By: Paige Luther on 35-76-5057Phgptiwtq (Bld) [#/Vol]0.0 10*3/uL0.0-0.2FAccess Hospital DaytonBasophils/100 WBC Auto (Bld)Ordered By: Paige Luther on 84-91-6527Lmhyqoqux/100 WBC (Bld)0.4 %.[facility] Bilirubin.direct [Mass/volume] in Serum or PlasmaOrdered By: Paige Luther on 59-98-3805Jvxozznya.direct [Mass/Vol]0.10 mg/dL0.03-0.18FAccess Hospital DaytonBilirubin.total [Mass/volume] in Serum or PlasmaOrdered By: Paige Luther on 39-82-5548Jopbcqind [Mass/Vol]0.5 mg/dL0.3-1.0[facility] CenterBurr cells [Presence] in Blood by Light microscopyOrdered By: Paige Luther on 21-46-2131Rmhb cells LM Ql (Bld)SlightAdena Pike Medical CenterCalcium [Mass/volume] in Serum or PlasmaOrdered By: Paige Luther on 00-69-6455Jbrtsjh [Mass/Vol]8.6 mg/dL8.6-10.3FAccess Hospital DaytonCarbon dioxide, total [Moles/volume] in Serum or PlasmaOrdered By: Paige Luther on 50-68-4608LB5 [Moles/Vol]23.1 mmol/L21.0-31.0[facility] CenterChloride [Moles/volume] in Serum or PlasmaOrdered By: Paige Luther on 39-76-7687Nvzgdqvl [Moles/Vol]103 mmol/F50-453ErxaulzatAdena Pike Medical CenterCreatine kinase [Enzymatic activity/volume] in Serum or Plasma Ordered By: Paige Luther on 41-04-0287VU [Catalytic activity/Vol]114 U/L30-223 [facility] CenterCreatinine [Mass/volume] in Serum or Plasma Ordered By: Paige Luther on 48-99-8548Fprtfwpueg [Mass/Vol]1.09 mg/dL0.70-1.30 [facility] CenterEosinophils Auto (Bld) [#/Vol]Ordered By: Paige Luther on 05-62-5219Zurtfnzgayw (Bld) [#/Vol]0.0 10*3/uL0.0-0.45 [facility] CenterEosinophils/100 WBC Auto (Bld)Ordered By: Paige Luther on 18-22-3396Hfnnfiruaon/100 WBC (Bld)0.2 %.[facility] CenterErythrocyte distribution width Auto (RBC) [Ratio]Ordered By: Paige Luther on 26-53-5086Ccmwdtvtpbn distribution width (RBC) [Ratio]20.3 % High12.0-14.8[facility] Medical CenterGlobulin Calc (S) [Mass/Vol] Ordered By: Paige Luther on 44-39-8443Bsjpklpn (S) [Mass/Vol]2.4 g/dLAdena Pike Medical CenterGlucose [Mass/volume] in Serum or PlasmaOrdered By: Paige Luther on 90-27-2938Axyvguk [Mass/Vol]158 mg/yMWxzv82-449NkxtjfzbyAdena Pike Medical CenterComment on above:ADA recommended reference rangeRandom Glucose Reference Range is dependent on time and content of last meal. Glucose of more than 200 mg/dL in a nonstressed, ambulatory subject supports the diagnosisof Diabetes Mellitus.Hematocrit Auto (Bld) [Volume fraction]Ordered By: Paige Luther on 58-13-4150Tfltiofrqv (Bld) [Volume fraction]23.7 %Low38.8-50.0 [facility] CenterHemoglobin [Mass/volume] in BloodOrdered By: Paige Luther on 32-65-4024Imabskoceg (Bld) [Mass/Vol]7.7 g/dLLow13.0-17.0 [facility] CenterHemoglobin.gastrointestinal [Presence] in Stool Ordered By: Paige Luther on 25-38-0139Zzvzvvkmml.gastrointestinal Ql (Stl) [facility] CenterHypochromia LM Ql (Bld)Ordered By: Paige Luther on 72-97-4326Koxpwttaebe Ql (Bld)MarkedAdena Pike Medical Center INR in Platelet poor plasma by Coagulation assayOrdered By: Paige Luther on 31-74-6237XXO Coag (PPP) [Relative time]1.3 {INR}[facility] Medical CenterComment on above:INR Therapeutic Range A) Pre- and Peroperative OAT started two weeks before surgery. NOT HIP SURGERY: 1.5 - 2.5 HIP SURGERY: 2 - 3B) Primary and secondary prevention of venous THROMBOSIS: 2 - 3C) Active venous thrombosis, pulmonary embolismand prevention of recurrent venous thrombosis: 2 - 3D) Prevention of arterial thromboembolismincluding patients with mechanical heart valves: 3 - 4.5Leukocytes [#/volume] corrected for nucleated erythrocytes in Blood by Automated counOrdered By: Paige Luther on 31-90-5683JEK corrected for nucl RBC Auto (Bld) [#/Vol]9.0 10*3/uL4.1-10.5FAccess Hospital DaytonLipase [Enzymatic activity/volume] in Serum or PlasmaOrdered By: Paige Luther on 93-62-6092Tusvum [Catalytic activity/Vol]5.0 U/LLow11.0-82.0[facility] Medical CenterLymphocytes Auto (Bld) [#/Vol]Ordered By: Paige Luther on 93-89-8932Nieumbukvxw (Bld) [#/Vol]1.5 10*3/uL1.00-4.8[facility] Medical CenterLymphocytes/100 WBC Auto (Bld)Ordered By: Paige Luther on 52-96-7950Otcsweugetb/100 WBC (Bld)16.3 %.[facility] MemorialH Auto (RBC) [Entitic mass]Ordered By: Paige Luther on 00-24-6284QYO (RBC) [Entitic mass]24.9 pgLow27.5-35.2FWexner Medical CenterHC Auto (RBC) [Mass/Vol]Ordered By: Paige Luther on 02-32-8208RCSP (RBC) [Mass/Vol] 32.6 g/dL32.5-35.6FAccess Hospital DaytonMCV Auto (RBC) [Entitic vol] Ordered By: Paige Luther on 65-38-5255XPK (RBC) [Entitic vol]76.3 fLLow 83.5-101[facility] CenterMacrocytes LM Ql (Bld)Ordered By: Paige Luther on 57-62-0347Onoyglshug Ql (Bld)[facility] HospitalMicrocytes LM Ql (Bld)Ordered By: Paige Luther on 46-29-9531Jxoicyktuz Ql (Bld)[facility] HospitalMonocyte distribution width [Entitic volume] in Blood by AutomatedOrdered By: Paige Luther on 02-05-2024 Monocyte distribution width Auto (Bld) [Entitic vol]17.22 %0.00-20.00[facility] CenterMonocytes Auto (Bld) [#/Vol]Ordered By: Paige Luther on 77-79-8112Mjtccuwla (Bld) [#/Vol]0.4 10*3/uL0.0-0.8[facility] CenterMonocytes/100 WBC Auto (Bld)Ordered By: Paige Luther on 02-05-2024 Monocytes/100 WBC (Bld)4.8 %.[facility] CenterNatriuretic peptide B [Mass/Vol]Ordered By: Paige Luther on 88-05-6485Zqpzwoxhhir peptide B (Bld) [Mass/Vol]399.0 pg/mLHigh5-100[facility] Neutrophils Auto (Bld) [#/Vol]Ordered By: Paige Luther on 02-05-2024 Neutrophils (Bld) [#/Vol]7.0 10*3/uL1.8-7.7FAccess Hospital Dayton Neutrophils/100 WBC Auto (Bld)Ordered By: Paige Luther on 02-05-2024 Neutrophils/100 WBC (Bld)78.3 %.[facility] CenterNo Panel InformationOrdered By: Paige Luther on 69-97-7195Rwkitghfo GFR (CKD-EPI)> 60.0 mL/MinAdena Pike Medical CenterPharmacy Creatinine Clearance (Chem45.07 [facility] Healthlides for Pathologist ReviewOrdered path reviewAdena Pike Medical CenterNucleated erythrocytes [Presence] in Blood by Automated countOrdered By: Paige Luther on 29-51-9533Ophhahqzm RBC Auto Ql (Bld)0.1 /100{WBC}0-0.5FAccess Hospital DaytonPlatelet adequacy [Presence] in Blood by Light microscopyOrdered By: Paige Luther on 71-50-7622Ycabdsnwu LM Ql (Bld)NormalNormalAdena Pike Medical Center Platelet mean volume Auto (Bld) [Entitic vol]Ordered By: Paige Luther on 62-63-7403Zslvfeco mean volume (Bld) [Entitic vol]10.6 fLHigh6.6-10.1FAccess Hospital DaytonPlatelet morphology finding [Identifier] in BloodOrdered By: Paige Luther on 36-68-3053Rwfmpuci morphology finding Nom (Bld)Normal NormalAdena Pike Medical CenterPlatelets Auto (Bld) [#/Vol]Ordered By: Paige Luther on 98-79-7309Avowxsolx (Bld) [#/Vol]277 10*3/jG839-384XtjqkcoaaAdena Pike Medical CenterPoikilocytosis [Presence] in Blood by Light microscopy Ordered By: Paige Luther on 08-56-6240Zyuhyzjjxxmbob LM Ql (Bld)Marked [facility] CenterPolychromasia [Presence] in Blood by Light microscopyOrdered By: Paige Luther on 21-19-9843Pprnodjajxnxh LM Ql (Bld) [facility] HospitalPotassium [Moles/volume] in Serum or PlasmaOrdered By: Paige Luther on 78-21-6117Oqojrftjy [Moles/Vol]5.1 mmol/L 3.5-5.1FAccess Hospital DaytonProtein [Mass/volume] in Serum or Plasma Ordered By: Paige Luther on 00-83-4854Xlewvjf [Mass/Vol]5.7 g/dLLow6.4-8.9 [facility] CenterProthrombin time (PT)Ordered By: Paige Luther on 04-66-2981WH Coag (PPP) [Time]15.5 sHigh9.0-12.9[facility] Medical CenterComment on above:A hematocrit value greater than 55% may lead to inaccurate results in coagulation testing. Patientshaving hematocrit values >55% require a special collection tube for coagulation studies. Please contact the laboratory at [phone] for redraw instructions.RBC Auto (Bld) [#/Vol]Ordered By: Paige Luther on 32-04-3402KDT (Bld) [#/Vol]3.11 10*6/uLLow3.90-5.60 [facility] CenterRBC morphologyOrdered By: aPige Luther on 02-70-3875SUE morphology finding Nom (Bld)N/[facility] Schistocytes [Presence] in Blood by Light microscopyOrdered By: Paige Luther on 20-02-6427Suajdfoeogna LM Ql (Bld)[facility] Serum or plasma albumin/globulin mass ratioOrdered By: Paige Luther on 37-11-2456Cjbcyzk/Globulin [Mass ratio]1.4 {ratio}[facility] Healtherum or plasma anion gap determinationOrdered By: Paige Luther on 81-31-8836Gagav gap [Moles/Vol]12.0 mmol/L6.0-15.0[facility] Healtherum or plasma non-glucuronidated bilirubin measurement (mass/volume) Ordered By: Paige Luther on 55-74-4895Mvcvjxasy.indirect [Mass/Vol]0.4 mg/dL [facility] Healthodium [Moles/volume] in Serum or PlasmaOrdered By: Paige Luther on 90-46-7576Utmxej [Moles/Vol]133 mmol/LOrx515-664YcwmxqrqtAdena Pike Medical CenterTarget cellsOrdered By: Paige Luther on 02-05-2024 Target cells LM Ql (Bld)SlightAdena Pike Medical CenterTroponin I.cardiac [Mass/volume] in Serum or Plasma by Detection limit <= 0.01 ng/Ordered By: Paige Luther on 27-80-1636Xagzbbhj I.cardiac DL <= 0.01 ng/mL [Mass/Vol] 85.5 pg/mLHigh0.0-20.0[facility] Medical CenterComment on above:Critical Result : Called to and read back by: PAIGE BENNETT at: 02/06/2024 00:36:33 by:[id number] nitrogen [Mass/volume] in Serum or PlasmaOrdered By: Paige Luther on 00-34-5546Mycj nitrogen [Mass/Vol]58 mg/dLHigh7-25[facility] Medical CenterWBC Auto (Bld) [#/Vol]Ordered By: Paige Luther on 52-58-0220FNR (Bld) [#/Vol]9.0 10*3/uL4.1-10.5FAccess Hospital DaytonCBC AND AUTO DIFFon 93-01-4989CLJHMAZP BASOPHIL0.1 X10E9/LNormal0.0-0.2POhioHealth Nelsonville Health CenterComment on above:Performed By: #### CBCA, 89001-9, PINR, 01657-2, 05804- 7, 88792-1, 97068-3, THYR, 09501-2, CMP, 26786-7, 2157-6 #### [facility] ([id number]) [address] [place] [address] #### HA1C #### [facility] ([id number]) [address], [address] [place], [place] [address]OKSFVZFOVUK9+AbnormalNONEProMedica Newburyport HospitalComment on above:Performed By: #### CBCA, 82876-9, PINR, 32334-2, 76166-7, 87327-0, 04655- 4, THYR, 43268-2, CMP, 12306-7, 2157-6 #### [facility] ([id number]) [address] [place] [address] #### HA1C #### [facility] ([id number]) [address], [address] [place], [place] [address]Hpoc form neutrophils/100 WBC (Bld)1.0 %NormalProMedica Newburyport HospitalComment on above:Performed By: #### CBCA, 64783-7, PINR, 72199-3, 67278- 7, 84241-6, 34938-2, THYR, 25321-3, CMP, 25084-6, 7-6 #### [facility] ([id number]) [address] [place] [address] #### HA1C #### [facility] ([id number]) [address], [address] [place], [place] [address]Oicalflly/100 WBC (Bld)1.0 %NormalProNationwide Children'S Hospital [facility] Comment on above:Performed By: #### CBCA, 68510-5, PINR, 42019-4, 22933-2, 22352-7, 25598-9, THYR, 77392-9, CMP, 26854-6, 2157-6 #### [facility] ([id number]) [address] [place], [place] [address] #### HA1C #### [facility] ([id number]) [address], [address] [place], [place] [address]IIHS2+AbnormalNONEProMedica Stiles HospitalComment on above: Performed By: #### CBCA, 57718-3, PINR, 21614-4, 67863-3, 75866-0, 81496-6, THYR, 80212-4, CMP, 27596-7, 2156-6 #### [facility] ([id number]) [address] [place] [address] #### HA1C #### [facility] ([id number]) [address] [place] [address], [address] [place], [place] [address]Pwtermetkcl (Bld) [#/Vol]0.2 10*3/uLNormal0.0-0.4ProCherrington Hospitalca [facility] & Brentwood HospitalComment on above:Performed By: #### CBCA, 89761-6, PINR, 76158-5, 69177-0, 34774-9, 48426-4, THYR, 13873-8, CMP, 66566-5, 2156-6 #### [facility] ([id number]) [address] [place] [address] #### HA1C #### [facility] ([id number]) [address] [place] [address], [address] [place], [place] [address]Ucupiestbsn/100 WBC (Bld)1.9 %NormalProAdena Regional Medical Center Comment on above:Performed By: #### CBCA, 09793-4, PINR, 56952-8, 39352-5, 68086-9, 32341-1, THYR, 50606-2, CMP, 66009-6, 2156- #### [facility] ([id number]) [address] [place] [address] #### HA1C #### [facility] ([id number]) [address] [place] [address], [address] [place], [place] [address]Nanittoxcuy distribution width (RBC) [Ratio]19.3 %High11.5-15.0 [facility] & Brentwood HospitalComment on above:Performed By: #### CBCA, 72388-6, PINR, 86602-8, 10948-8, 52424-6, 84867-9, THYR, 63760-7, CMP, 57145-0, 2156-6 #### [facility] ([id number]) [address] [place] [address] #### HA1C #### [facility] ([id number]) [address], [address] [place], [place] [address]CBEDPFXA6+AbnormalNONEProMedica Newburyport HospitalComment on above: Performed By: #### CBCA, 13833-3, PINR, 85724-7, 83173-9, 81528-5, 50979-1, THYR, 19020-1, CMP, 58087-4, 2156- #### [facility] ([id number]) [address] [place] [address] #### HA1C #### [facility] ([id number]) [address], [address] [place], [place] [address]Digpruodzg (Bld) [Volume fraction]31.5 %Gsq74-86AjqHeveqo Toledo HospitalComment on above:Performed By: #### CBCHe, 65614-0, PINR, 51782-0, 03964- 7, 18781-7, 45087-0, THYR, 19643-2, CMP, 72162-5, 2156- #### [facility] ([id number]) [address] [place] [address] #### HA1C #### [facility] ([id number]) [address], [address] [place], [place] [address]Crdyvjulys (Bld) [Mass/Vol]10.4 g/dLLow13.0-17.0ProAdena Regional Medical CenterComment on above:Performed By: #### CBCA, 09590-4, PINR, 73554-4, 40619-8, 92021-3, 98609-4, THYR, 53083-1, CMP, 92497-7, 2157-6 #### [facility] ([id number]) [address] [place] [address] #### HA1C #### [facility] ([id number]) [address] [place] [address], [address] [place], [place] [address]LUKEWYXFRXH6+AbnormalNONEProMedica Newburyport HospitalComment on above:Performed By: #### CBCA, 75592-1, PINR, 67335-9, 09321-8, 93867-2, 79527- 4, THYR, 40214-1, CMP, 61700-0, 2157-6 #### [facility] ([id number]) [address] [place] [address] #### HA1C #### [facility] ([id number]) [address] [place] [address], [address] [place], [place] [address]JJFGIHOCVZ, ATYPICAL1.0 %NormalProMedica Newburyport HospitalComment on above:Performed By: #### CBCA, 06687-9, PINR, 40480-4, 35658-3, 71964-3, 80436-9, THYR, 37498-4, CMP, 01959-5, 2156-6 #### [facility] ([id number]) [address] [place] [address] #### HA1C #### [facility] ([id number]) [address] [place] [address], [address] [place], [place] [address]Crucmsrxbnw (Bld) [#/Vol]1.9 10*3/uLNormal1.0-3.5ProMedica Newburyport HospitalComment on above:Performed By: #### CBCA, 41123-1, PINR, 24365-7, 06931-5, 56429-3, 82985-5, THYR, 16454-6, CMP, 09432-1, 2157-6 #### [facility] ([id number]) [address] [place] [address] #### HA1C #### [facility] ([id number]) [address], [address] [place], [place] [address]Rfcjkhixajv/100 WBC (Bld)20.0 %NormalOhioHealth Arthur [facility] Comment on above:Performed By: #### CBCA, 46279-9, PINR, 77156-2, 01537-4, 84606-2, 80487-5, THYR, 95386-8, CMP, 17983-0, 2157-6 #### [facility] ([id number]) [address] [place] [address] #### HA1C #### [facility] ([id number]) [address], [address] [place], [place] [address]URX (RBC) [Entitic mass]24.6 aiHss14-34PfmCsyofgOhioHealth Arthur [facility] Cancer Center Comment on above:Performed By: #### CBCA, 01696-1, PINR, 56181-1, 48198-3, 66812-0, 80726-7, THYR, 72097-0, CMP, 94796-7, 2156-6 #### [facility] ([id number]) [address] [address] #### HA1C #### [facility] ([id number]) [address], [address] [place], [place] [address]KACZ (RBC) [Mass/Vol]32.9 g/vUUyerhp98-05ZajLfsxwfOhioHealth Arthur G.[facility]. [facility], MD, Cancer CenterComment on above:Performed By: #### CBCA, 18008-1, PINR, 20362-5, 38855- 7, 32890-1, 32679-8, THYR, 72391-4, CMP, 56918-6, 7-6 #### [facility] ([id number]) [address] [place] [address] #### HA1C #### [facility] ([id number]) [address], [address] [place], [place] [address]JFT (RBC) [Entitic vol]75 lHEbo06-253YvuKsbqlfOhioHealth [facility] Comment on above:Performed By: #### CBCA, 75287-4, PINR, 02572-8, 08252-9, 75351-4, 41846-7, THYR, 82437-2, CMP, 26733-9, 2157-6 #### [facility] ([id number]) [address] [place] [address] #### HA1C #### [facility] ([id number]) [address], [address] [place], [place] [address]Yvdpldfsd (Bld) [#/Vol]0.9 10*3/uLNormal0-0.9Ohio[facility], Cancer CenterComment on above:Performed By: #### CBCA, 50201-9, PINR, 69683-7, 85320- 7, 72228-9, 48530-2, THYR, 17326-7, CMP, 92510-1, 2156-6 #### [facility] ([id number]) [address] [place] [address] #### HA1C #### [facility] ([id number]) [address], [address] [place], [place] [address]Mridutpop/100 WBC (Bld)9.5 %NormalOhioHealth Arthur [facility] Comment on above:Performed By: #### CBCA, 61009-9, PINR, 61674-4, 30514-7, 40320-2, 86118-6, THYR, 04096-5, CMP, 90677-6, 2156-6 #### [facility] ([id number]) [address] [place] [address] #### HA1C #### [facility] ([id number]) [address], [address] [place], [place] [address]Qshjpkyelyl (Bld) [#/Vol]6.1 10*3/uLNormal1.5-6.6[facility]port HospitalComment on above:Performed By: #### CBCA, 32099-0, PINR, 94266-0, 85353-4, 38976-4, 14644-0, THYR, 19690-6, CMP, 55312-5, 2157-6 #### [facility] ([id number]) [address] [place] [address] #### HA1C #### [facility] ([id number]) [address], [address] [place], [place] [address]Istgmhrr mean volume (Bld) [Entitic vol]10.6 fLNormal7-12 [facility] HospitalComment on above:Performed By: #### CBCA, 90495-1, PINR, 94907-0, 74968-8, 93151-0, 83772-1, THYR, 12822-9, CMP, 14725-4, 2157-6 #### [facility] ([id number]) [address] [place] [address] #### HA1C #### [facility] ([id number]) [address], [address] [place], [place] [address]Fgutosjzn (Bld) [#/Vol]245 10*3/aQDjwheo055-570ZveDosdps [facility] HospitalComment on above:Performed By: #### CBCA, 37800-0, PINR, 20963-0, 11131- 7, 13157-1, 83679-0, THYR, 00293-5, CMP, 94932-0, 2157-6 #### [facility] ([id number]) [address] [place] [address] #### HA1C #### [facility] ([id number]) [address], [address] [place], [place] [address]WBE COUNT4.22 X10E12/LNormal4.10-5.70[facility] Comment on above:Performed By: #### CBCA, 86781-4, PINR, 83958-6, 41560-4, 03577-4, 92101-1, THYR, 45173-3, CMP, 18943-9, 2157-6 #### [facility] ([id number]) [address] [place] [address] #### HA1C #### [facility] ([id number]) [address] [facility], [address] [place], [place] [address]ORL JXNRIBCEXK86.6 %NormalProNationwide Children'S Hospital HospitalComment on above:Performed By: #### CBCA, 77247-0, PINR, 79253-1, 42896-1, 14150-1, 16039- 4, THYR, 08029-3, CMP, 62940-7, 2156-6 #### [facility] ([id number]) [address] [place] [address] #### HA1C #### [facility] ([id number]) [address] [place] [address], [address] [place], [place] [address]ATEQWT1+AbnormalNONEProMedica Newburyport HospitalComment on above: Performed By: #### CBCA, 39321-0, PINR, 93240-6, 30101-5, 63282-1, 02648-5, THYR, 30257-7, CMP, 66604-6, 2156-6 #### [facility] ([id number]) [address] [place] [address] #### HA1C #### [facility] ([id number]) [address] [place] [address], [address] [place], [place] [address]XVY (Bld) [#/Vol]9.2 10*3/uLNormal4.0-11.0Pro[facility] HospitalComment on above:Performed By: #### CBCA, 47436-1, PINR, 82037-0, 03207- 7, 93139-3, 21800-1, THYR, 01128-0, CMP, 79892-9, 2157-6 #### [facility] ([id number]) [address] [place], [place] [address] #### HA1C #### [facility] ([id number]) [address] [place] [address], [address] [place], [place] [address]DM [Catalytic activity/Vol]on 32-74-7092ZNH959 U/KJgfx98-760 [facility] HospitalComment on above:Performed By: #### CBCA, 20986-9, PINR, 11625-8, 14587-2, 24343-6, 37720-1, THYR, 80873-6, CMP, 19474-3, 2157-6 #### [facility] ([id number]) [address] [place] [address] #### HA1C #### [facility] ([id number]) [address] [place] [address], [address] [place], [place] [address]RMP[address] U/QJjsx95-651EsyMwvzfd [facility]bury[place] HospitalComment on above: Performed By: #### CBCHe, 06040-0, PINR, 69674-2, 58142-7, 93235-3, 22267-5, THYR, 45765-3, CMP, 39747-8, 2157-6 #### [facility] ([id number]) [address] [place] [address] #### HA1C #### [facility] ([id number]) [address] [place] [address], [address] [place], [place] [address]IGZSIWXXNQUWI METABOLIC PANELon 10-01-8227Sdnscgc [Mass/Vol]3.4 g/dLNormal3.2-5.3Pro[facility] HospitalComment on above:Performed By: #### CBCA, 50810-5, PINR, 87171-9, 75805-6, 38055-9, 82130-5, THYR, 21840-2, CMP, 74501-6, 2157-6 #### [facility] ([id number]) [address] [place] [address] #### HA1C #### [facility] ([id number]) [address] [facility], [address] [place], [place] [address]HMX [Catalytic activity/Vol]102 U/FKckafx67-177NprDhpdtg [facility] HospitalComment on above:Performed By: #### CBCA, 02138-8, PINR, 84815-1, 71362- 7, 90340-4, 70711-4, THYR, 88370-2, CMP, 99474-9, 2157-6 #### [facility] ([id number]) [address] [place] [address] #### HA1C #### [facility] ([id number]) [address] [facility], [address] [place], [place] [address]IGJ [Catalytic activity/Vol]26 U/LNormal0-40ProAdena Regional Medical CenterComment on above:Performed By: #### CBCA, 72234-2, PINR, 30880-2, 78845- 7, 99575-4, 36399-7, THYR, 24936-8, CMP, 95910-5, 7-6 #### [facility] ([id number]) [address] [place] [address] #### HA1C #### [facility] ([id number]) [address] [facility], [address] [place], [place] [address]Sgnpv gap [Moles/Vol]9 mmol/LNormal5-15[facility] Hospital Comment on above:Performed By: #### CBCA, 99972-6, PINR, 55405-7, 10366-5, 55933-2, 66512-8, THYR, 21000-6, CMP, 88291-3, 2157-6 #### [facility] ([id number]) [address] [place] [address] #### HA1C #### [facility] ([id number]) [address] [place] [address], [address] [place], [place] [address]FOY [Catalytic activity/Vol]31 U/LNormal0-41[facility] HospitalComment on above:Performed By: #### CBCA, 60562-7, PINR, 35206-4, 87898- 7, 86103-1, 13603-1, THYR, 89588-7, CMP, 88437-0, 7-6 #### [facility] ([id number]) [address] [place] [address] #### HA1C #### [facility] ([id number]) [address] [place] [address], [address] [place], [place] [address]Fntxrvktj [Mass/Vol]0.7 mg/dLNormal0.3-1.2Pro[facility] HospitalComment on above:Performed By: #### CBCA, 38305-6, PINR, 39341-6, 17216- 7, 51202-5, 16273-4, THYR, 88991-0, CMP, 32741-4, 7-6 #### [facility] ([id number]) [address] [place] [address] #### HA1C #### [facility] ([id number]) [address] [place] [address], [address] [place], [place] [address]Knqvdpk [Mass/Vol]8.5 mg/dLNormal8.5-10.5ProMedToledo Hospital HospitalComment on above:Performed By: #### CBCA, 94658-8, PINR, 46316-6, 10426- 7, 25568-4, 21468-5, THYR, 59676-4, CMP, 99928-2, 2157-6 #### [facility] ([id number]) [address] [place] [address] #### HA1C #### [facility] ([id number]) [address], [address] [place], [place] [address]Excmexfg [Moles/Vol]103 mmol/EWwhoga24-618JwpExvrlk [facility] HospitalComment on above:Performed By: #### WILLIAM, 48529-4, PINR, 44812-7, 90291- 7, 88170-4, 84370-6, THYR, 93097-8, CMP, 88431-6, 2157-6 #### [facility] ([id number]) [address] [place], [place] [address] #### HA1C #### [facility] ([id number]) [address], [address] [place], [place] [address]PX7 [Moles/Vol]24 mmol/UVcqgvh47-23YbxWesxmwOhioHealth [facility] Comment on above:Performed By: #### WILLIAM, 05477-7, PINR, 40727-8, 91764-9, 05166-8, 58556-8, THYR, 67464-5, CMP, 08420-4, 2156-6 #### [facility] ([id number]) [address] [place] [address] #### HA1C #### [facility] ([id number]) [address], [address] [place], [place] [address]Dmqogtdohc [Mass/Vol]0.77 mg/dLNormal0.60-1.30ProAdena Regional Medical CenterComment on above:Result Comment: METHOD TRACEABLE TO IDMS STANDARD Performed By: #### CBCA, 85339-0, PINR, 81283-1, 70107-3, 19034-4, 38163-5, THYR, 30481-9, CMP, 72382-5, 7-6 #### [facility] ([id number]) [address] [place], [place] [address] #### HA1C #### [facility] ([id number]) [address], [address] [place], [place] [address]TDA/1.73 sq M.predicted among non-blacks MDRD (S/P/Bld) [Vol rate/Area]87 mL/min/{1.73_m2}Normal>59ProAdena Regional Medical CenterComment on above: Result Comment: Reported eGFR is based on the CKD-EPI 2020 equation that does not use a race coefficient.Performed By: #### CBCA, 90646-0, PINR, 78913-7, 51912-6, 26669-8, 17246-5, THYR, 26378-3, CMP, 90943-7, 2156- #### [facility] ([id number]) [address] [place] [address] #### HA1C #### [facility] ([id number]) [address], [address] [place], [place] [address]Fspkcox [Mass/Vol]167 mg/cXYmku89-86XcxLdzekxAdena Regional Medical Center Comment on above:Performed By: #### WILLIAM, 36094-4, PINR, 06767-8, 86795-4, 51030-4, 63616-3, THYR, 20254-0, CMP, 22648-2, 2156- #### [facility] ([id number]) [address] [place] [address] #### HA1C #### [facility] ([id number]) [address], [facility] [address] [place], [place] [address]Jvwfbwiqg [Moles/Vol]4.0 mmol/LNormal3.5-5.0ProAdena Regional Medical CenterComment on above:Performed By: #### CBCA, 05064-1, PINR, 30158-0, 33882- 7, 87330-8, 19741-7, THYR, 77510-2, CMP, 79533-1, 2156- #### [facility] ([id number]) [address] [place] [address] #### HA1C #### [facility] ([id number]) [address], [address] [place], [place] [address]Gtobskt [Mass/Vol]6.0 g/dLNormal6.0-8.0ProA[facility] Comment on above:Performed By: #### CBCA, 24615-3, PINR, 93551-5, 93716-4, 80940-6, 73445-5, THYR, 71132-2, CMP, 32877-8, 2156-6 #### [facility] ([id number]) [address] [place] [address] #### HA1C #### [facility] ([id number]) [address] [facility], [address] [place], [place] [address]Fcewiy [Moles/Vol]136 mmol/QXkuqbk983-079MalFvbrld [facility] HospitalComment on above:Performed By: #### CBCA, 61496-9, PINR, 81266-7, 80738- 7, 52242-0, 57710-0, THYR, 16383-0, CMP, 75994-1, 2156- #### [facility] ([id number]) [address] [place] [address] #### HA1C #### [facility] ([id number]) [address], [address] [place], [place] [address]Zyto nitrogen [Mass/Vol]16 mg/dLNormal5-27ProAdena Regional Medical CenterComment on above:Performed By: #### CBCA, 08326-3, PINR, 58349-6, 29224- 7, 34214-0, 90074-7, THYR, 65023-8, CMP, 08178-1, 2156- #### [facility] ([id number]) [address] [place] [address] #### HA1C #### [facility] ([id number]) [address], [address] [place], [place] [address]Htbyaie Glucometer (BldC) [Mass/Vol]on 72-72-9223Gjioqho [Mass/Vol]371 mg/tTTcko20-38FxtZviogz [facility] HospitalGlucose [Mass/Vol]181 mg/dL Ifgq44-70EsoKfmggj [facility] HospitalMAGNESIUMon 80-10-6178Qbzaxmnab [Mass/Vol]1.6 mg/dLLow1.8-2.6ProMedica [facility] HospitalComment on above:Performed By: #### WILLIAM, 39803-3, PINR, 54789-6, 61687-3, 90026-3, 83195-4, THYR, 82007-3, CMP, 50580-6, 2156-6 #### [facility] ([id number]) [facility] [place] [address] #### HA1C #### [facility] ([id number]) [address] [facility], [address] [place], [place] [address]UU [Catalytic activity/Vol]on 09-79-2140DMV164 U/WOkmt89-165 [facility] HospitalComment on above:Performed By: #### WILLIAM, 23828-6, PINR, 46030-8, 95829-9, 39801-9, 92066-6, THYR, 46846-5, CMP, 10431-4, 2156- #### [facility] ([id number]) [address] [place] [address] #### HA1C #### [facility] ([id number]) [address] [facility], [address] [place], [place] [address]VPL[address] U/PEnbj66-277WqpRnuwgx [facility] HospitalComment on above: Performed By: #### WILLIAM, 78743-4, PINR, 20427-9, 97000-0, 04939-6, 86973-0, THYR, 07437-1, CMP, 16723-0, 2156- #### [facility] ([id number]) [address] [place], [place] [address] #### HA1C #### [facility] ([id number]) [address] [place] [address], [address] [place], [place] [address]OOL233 U/IUntk38-121IxmBzblfl [facility] HospitalComment on above: Performed By: #### CBCA, 38381-9, PINR, 51301-2, 68677-7, 62335-0, 22564-5, THYR, 81611-9, CMP, 67617-9, 2157-6 #### [facility] ([id number]) [address] [place] [address] #### HA1C #### [facility] ([id number]) [address] [place] [address], [address] [place] [address]FDTTLXBY BLOOD COUNTon 68-67-5634Quvggzxukew distribution width (RBC) [Ratio]19.8 %High11.5-15.0ProNationwide Children'S Hospital HospitalComment on above: Performed By: #### CBCA, 49006-7, PINR, 44110-3, 82106-0, 34392-6, 19827-8, THYR, 27730-3, CMP, 02464-2, 7-6 #### [facility] ([id number]) [address] [place] [address] #### HA1C #### [facility] ([id number]) [address] [place] [address], [address] [place] [address]Bqjrejwkuu (Bld) [Volume fraction]34.0 %Foi12-16WyjFjtifk [facility] HospitalComment on above:Performed By: #### CBCA, 81383-5, PINR, 20633-4, 03716- 7, 25790-0, 72364-4, THYR, 74153-8, CMP, 68283-8, 2157-6 #### [facility] ([id number]) [address] [place], [place] [address] #### HA1C #### [facility] ([id number]) [address], [address] [place], [place] [address]Hkzpcbhugc (Bld) [Mass/Vol]11.0 g/dLLow13.0-17.0ProAdena Regional Medical CenterComment on above:Performed By: #### CBCA, 38137-7, PINR, 54381-5, 91903-0, 19437-5, 41113-0, THYR, 23199-9, CMP, 92435-5, 2157-6 #### [facility] ([id number]) [address] [place] [address] #### HA1C #### [facility] ([id number]) [address] [facility], [address] [place], [place] [address]UIK (RBC) [Entitic mass]24.3 knGsh20-07UhkNqkmxi [facility] Comment on above:Performed By: #### CBCA, 96204-6, PINR, 85737-8, 43942-8, 27671-3, 79222-8, THYR, 87826-9, CMP, 22191-8, 2156-6 #### [facility] ([id number]) [address] [place] [address] #### HA1C #### [facility] ([id number]) [address], [address] [place], [place] [address]GCSD (RBC) [Mass/Vol]32.3 g/pCHlttce00-90VofWpjeka [facility] HospitalComment on above:Performed By: #### CBCA, 81884-1, PINR, 66590-1, 05364- 7, 69257-9, 38373-4, THYR, 00810-2, CMP, 50148-3, 2156-6 #### [facility] ([id number]) [address] [place] [address] #### HA1C #### [facility] ([id number]) [address], [address] [place], [place] [address]POJ (RBC) [Entitic vol]75 hXPlz25-634CggAqenusAdena Regional Medical Center Comment on above:Performed By: #### CBCA, 82865-3, PINR, 23408-6, 22426-6, 99388-2, 85854-2, THYR, 08836-1, CMP, 90465-5, 2157-6 #### [facility] ([id number]) [address] [place] [address] #### HA1C #### [facility] ([id number]) [address], [address] [place], [place] [address]Cpzqufhf mean volume (Bld) [Entitic vol]10.5 fLNormal7-12 [facility]wood HospitalComment on above:Performed By: #### CBCA, 80828-9, PINR, 85850-9, 36043-7, 82560-5, 01733-4, THYR, 99223-4, CMP, 43174-2, 7-6 #### [facility] ([id number]) [address] [place] [address] #### HA1C #### [facility] ([id number]) [address], [address] [place], [place] [address]Gicunspmi (Bld) [#/Vol]237 10*3/fBLlyakc930-140IfkCdsfef [facility] HospitalComment on above:Performed By: #### CBCA, 62904-4, PINR, 59113-1, 38757- 7, 11188-0, 77682-5, THYR, 18109-6, CMP, 94243-1, 7-6 #### [facility] ([id number]) [address] [place] [address] #### HA1C #### [facility] ([id number]) [address] [facility], [address] [place], [place] [address]YWV COUNT4.51 X10E12/LNormal4.10-5.70[facility] Comment on above:Performed By: #### CBCA, 35157-6, PINR, 70063-3, 96524-5, 26772-9, 30766-8, THYR, 01347-8, CMP, 47191-1, 2157-6 #### [facility] ([id number]) [address] [address] #### HA1C #### [facility] ([id number]) [address] [place] [address], [address] [place], [place] [address]HPU (Bld) [#/Vol]12.3 10*3/uLHigh4.0-11.0ProAdena Regional Medical CenterComment on above:Performed By: #### CBCA, 12630-5, PINR, 10936-9, 74214- 7, 86697-7, 67232-9, THYR, 03413-3, CMP, 63540-6, 2157-6 #### [facility] ([id number]) [address] [address] #### HA1C #### [facility] ([id number]) [address] [place] [address], [address] [place], [place] [address]RIPAFQDHWZZYK METABOLIC PANELon 45-87-6834Tbwuqte [Mass/Vol]3.7 g/dLNormal3.2-5.3ProMedTrumbull Regional Medical CenterComment on above:Performed By: #### CBCA, 91510-8, PINR, 86745-3, 16568-1, 64051-7, 02988-4, THYR, 43186-2, CMP, 14656-0, 2157-6 #### [facility] ([id number]) [address] [place] [address] #### HA1C #### [facility] ([id number]) [address] [place] [address], [address] [place], [place] [address]HIJ [Catalytic activity/Vol]117 U/JSttihs68-393NduWjdyjp [facility] HospitalComment on above:Performed By: #### WILLIAM, 05668-2, PINR, 03552-3, 79836- 7, 17558-2, 09209-8, THYR, 34213-6, CMP, 03360-5, 2157-6 #### [facility] ([id number]) [address] [place] [address] #### HA1C #### [facility] ([id number]) [address] [place] [address], [address] [place], [place] [address]VRI [Catalytic activity/Vol]29 U/LNormal0-40Pro[facility]ica Stiles HospitalComment on above:Performed By: #### WILLIAM, 62206-5, PINR, 64920-1, 19040- 7, 51004-7, 46333-0, THYR, 66831-7, CMP, 52750-5, 2157-6 #### [facility] ([id number]) [address] [place] [address] #### HA1C #### [facility] ([id number]) [address] [place] [address], [address] [place], [place] [address]Pkexo gap [Moles/Vol]13 mmol/LNormal5-15ProCherrington Hospitalca [facility] HospitalComment on above:Performed By: #### WILLIAM, 17869-9, PINR, 60768-5, 15024- 7, 30357-3, 21908-7, THYR, 27989-1, CMP, 28259-4, 2157-6 #### [facility] ([id number]) [address] [place] [address] #### HA1C #### [facility] ([id number]) [address] [place] [address], [address] [place], [place] [address]ETK [Catalytic activity/Vol]51 U/LHigh0-41ProMedica Stiles HospitalComment on above:Performed By: #### WILLIAM, 96951-5, PINR, 22398-9, 67431- 7, 11612-1, 13032-8, THYR, 38242-2, CMP, 97582-5, 2156-6 #### [facility] ([id number]) [address] [place] [address] #### HA1C #### [facility] ([id number]) [address] [facility], [address] [place], [place] [address]Backpdcmw [Mass/Vol]0.7 mg/dLNormal0.3-1.2ProMedToledo Hospital HospitalComment on above:Performed By: #### CBCA, 87087-2, PINR, 32397-1, 09069- 7, 79355-8, 73860-1, THYR, 34133-5, CMP, 56739-0, 2156-6 #### [facility] ([id number]) [address] [place] [address] #### HA1C #### [facility] ([id number]) [address], [address] [place], [place] [address]Kqxhstk [Mass/Vol]8.5 mg/dLNormal8.5-10.5[facility] HospitalComment on above:Performed By: #### CBCA, 73813-2, PINR, 53586-2, 07816- 7, 07319-9, 26229-9, THYR, 79607-5, CMP, 69295-8, 2156-6 #### [facility] ([id number]) [address] [place] [address] #### HA1C #### [facility] ([id number]) [address], [address] [place], [place] [address]Eagnlcoh [Moles/Vol]103 mmol/MImxdav34-796RvwBfbotw [facility] HospitalComment on above:Performed By: #### CBCA, 29999-8, PINR, 40043-5, 28784- 7, 42868-1, 70047-4, THYR, 21659-2, CMP, 70012-9, 7-6 #### [facility] ([id number]) [address] [place] [address] #### HA1C #### [facility] ([id number]) [address], [address] [place], [place] [address]OW7 [Moles/Vol]19 mmol/PYpx37-82NnfFioddj [facility] HospitalComment on above:Performed By: #### WILLIAM, 52408-2, PINR, 68792-5, 48156-9, 08510-8, 69731-0, THYR, 87795-5, CMP, 11982-5, 2156-6 #### [facility] ([id number]) [address] [place] [address] #### HA1C #### [facility] ([id number]) [address] [place] [address], [address] [place] [address]Wwtolpserx [Mass/Vol]0.72 mg/dLNormal0.60-1.30ProAdena Regional Medical CenterComment on above:Result Comment: METHOD TRACEABLE TO IDMS STANDARD Performed By: #### WILLIAM, 80177-5, PINR, 98082-0, 01237-2, 88479-6, 57078-0, THYR, 35682-6, CMP, 76221-8, 2156-6 #### [facility] ([id number]) [address] [place] [address] #### HA1C #### [facility] ([id number]) [address], [address] [place], [place] [address]NVC/1.73 sq M.predicted among non-blacks MDRD (S/P/Bld) [Vol rate/Area]89 mL/min/{1.73_m2}Normal>59ProAdena Regional Medical CenterComment on above: Result Comment: Reported eGFR is based on the CKD-EPI 2020 equation that does not use a race coefficient.Performed By: #### CBCA, 15788-1, PINR, 86237-5, 40946-0, 30765-7, 10391-0, THYR, 65207-7, CMP, 03462-9, 2156-6 #### [facility] ([id number]) [address] [place] [address] #### HA1C #### [facility] ([id number]) [address], [address] [place], [place] [address]Maubtji [Mass/Vol]208 mg/fURwoj32-39ZnnTttpwlAdena Regional Medical Center Comment on above:Performed By: #### CBCA, 51425-7, PINR, 36306-8, 70909-0, 95776-1, 81290-7, THYR, 27485-1, CMP, 58557-4, 2156-6 #### [facility] ([id number]) [address] [place] [address] #### HA1C #### [facility] ([id number]) [address], [address] [place], [place] [address]Soasufgfb [Moles/Vol]4.2 mmol/LNormal3.5-5.0ProAdena Regional Medical CenterComment on above:Performed By: #### CBCHe, 20864-7, PINR, 05302-1, 12216- 7, 92496-1, 25694-2, THYR, 90377-5, CMP, 02535-3, 2156-6 #### [facility] ([id number]) [address] [place], [place] [address] #### HA1C #### [facility] ([id number]) [address], [address] [place], [place] [address]Mwfgowb [Mass/Vol]6.6 g/dLNormal6.0-8.0[facility] Comment on above:Performed By: #### CBCA, 10010-6, PINR, 15823-6, 34244-0, 07819-8, 51718-6, THYR, 34536-1, CMP, 51979-4, 2157-6 #### [facility] ([id number]) [address] [place] [address] #### HA1C #### [facility] ([id number]) [address] [place] [address], [address] [place], [place] [address]Szzcjr [Moles/Vol]135 mmol/MOuojek029-902WpvHubata [facility] HospitalComment on above:Performed By: #### CBCHe, 89626-7, PINR, 96121-7, 31688- 7, 27274-3, 04541-7, THYR, 01527-6, CMP, 62659-7, 2156-6 #### [facility] ([id number]) [address] [place] [address] #### HA1C #### [facility] ([id number]) [address] [place] [address], [address] [place], [place] [address]Tkkx nitrogen [Mass/Vol]18 mg/dLNormal5-27ProNationwide [facility] HospitalComment on above:Performed By: #### WILLIAM, 51598-9, PINR, 12378-4, 17683- 7, 52633-5, 82875-7, THYR, 19801-0, CMP, 09401-2, 2156- #### [facility] ([id number]) [address] [place] [address] #### HA1C #### [facility] ([id number]) [address] [place] [address], [address] [place], [place] [address]SFNPSMMQAOARuu 34-05-7979HMLKSJWPJZL8+AbnormalNONEProMedica [facility]port HospitalComment on above:Performed By: #### CBCA, 06137-0, PINR, 74507-4, 03714-1, 96828-5, 14495-2, THYR, 95836-7, CMP, 32749-7, 2156-6 #### [facility] ([id number]) [address] [place] [address] #### HA1C #### [facility] ([id number]) [address], [address] [place], [place] [address]Yqxppzsfovoy Ql (Bld)2+AbnormalNONEProMedica [facility] Comment on above:Performed By: #### CBCA, 85471-2, PINR, 70321-6, 81185-0, 78485-5, 72743-3, THYR, 94508-7, CMP, 52204-3, 2156- #### [facility] ([id number]) [address] [place] [address] #### HA1C #### [facility] ([id number]) [address] [facility], [address] [place], [place] [address]Jzvh form neutrophils/100 WBC (Bld)9.0 %NormalProMedica Suburban Community Hospital & Brentwood HospitalComment on above:Performed By: #### CBCA, 60892-2, PINR, 74454-3, 74016- 7, 93630-2, 47787-0, THYR, 19796-6, CMP, 73758-0, 2156- #### [facility] ([id number]) [address] [place] [address] #### HA1C #### [facility] ([id number]) [address], [address] [place], [place] [address]URYR6+AbnormalNONEProMedTrumbull Regional Medical CenterComment on above: Performed By: #### CBCA, 12247-2, PINR, 04472-4, 08366-1, 46503-8, 69491-0, THYR, 10981-6, CMP, 52339-7, 2156-12 #### [facility] ([id number]) [address] [place] [address] #### HA1C #### [facility] ([id number]) [address], [address] [place], [place] [address]Ovnczzfhsyz (Bld) [#/Vol]0.1 10*3/uLNormal0.0-0.4Pro[facility]ica [facility] HospitalComment on above:Performed By: #### CBCA, 20650-0, PINR, 86378-6, 40030-6, 98252-2, 29150-7, THYR, 53961-4, CMP, 93724-7, 2157-6 #### [facility] ([id number]) [address] [place] [address] #### HA1C #### [facility] ([id number]) [address], [address] [place], [place] [address]Opopgcvdvec/100 WBC (Bld)1.0 %NormalProNationwide Children'S Hospital Hospital Comment on above:Performed By: #### CBCA, 69841-9, PINR, 68011-3, 86876-9, 38880-6, 06946-7, THYR, 69691-5, CMP, 01648-9, 2156-6 #### [facility] ([id number]) [address] [place] [address] #### HA1C #### [facility] ([id number]) [address], [address] [place], [place] [address]LBGHZWLB1+AbnormalNONEProMedica Newburyport HospitalComment on above: Performed By: #### CBCA, 00576-6, PINR, 99441-8, 40706-7, 17782-3, 56541-3, THYR, 47282-9, CMP, 41998-8, 7-6 #### [facility] ([id number]) [address] [place] [address] #### HA1C #### [facility] ([id number]) [address], [address] [place], [place] [address]KMXJPZ-ADCEL BODY1+AbnormalNONEProMedica Newburyport HospitalComment on above:Performed By: #### CBCA, 64399-9, PINR, 40298-5, 19010-7, 98489-4, 88249-4, THYR, 96078-6, CMP, 08647-5, 2157-6 #### [facility] ([id number]) [address] [place] [address] #### HA1C #### [facility] ([id number]) [address] [place] [address], [address] [place], [place] [address]TGPNELYYHOU4+AbnormalNONEProMedica Newburyport HospitalComment on above:Performed By: #### CBCA, 24386-2, PINR, 94716-9, 23299-0, 19384-8, 96506- 4, THYR, 01404-9, CMP, 37480-0, 7-6 #### [facility] ([id number]) [address] [place] [address] #### HA1C #### [facility] ([id number]) [address] [place] [address], [address] [place], [place] [address]RRIEKTEORU, ATYPICAL1.0 %NormalProMedica Newburyport HospitalComment on above:Performed By: #### CBCA, 01551-5, PINR, 06493-0, 88214-8, 22272-0, 77949-4, THYR, 41874-1, CMP, 82262-9, 2156-6 #### [facility] ([id number]) [address] [place] [address] #### HA1C #### [facility] ([id number]) [address] [place] [address], [address] [place], [place] [address]Nquslpzutcd (Bld) [#/Vol]1.6 10*3/uLNormal1.0-3.5Pro[facility]ica [facility] HospitalComment on above:Performed By: #### CBCA, 22804-9, PINR, 88458-2, 88892-5, 74842-8, 47492-7, THYR, 53483-3, CMP, 11183-5, 7-6 #### [facility] ([id number]) [address] [place] [address] #### HA1C #### [facility] ([id number]) [address] [place] [address], [address] [place], [place] [address]Hsbzxggvhkr/100 WBC (Bld)12.0 %[facility] Comment on above:Performed By: #### CBCA, 13458-6, PINR, 57277-0, 38578-7, 30532-8, 89681-0, THYR, 74313-7, CMP, 37954-8, 2156-6 #### [facility] ([id number]) [address] [place] [address] #### HA1C #### [facility] ([id number]) [address] [place] [address], [address] [place], [place] [address]Tsseninxs (Bld) [#/Vol]1.4 10*3/uLHigh0-0.9Ohio[facility] Bing, MD, Cancer CenterComment on above:Performed By: #### CBCA, 79866-5, PINR, 39398-0, 38715- 7, 83227-4, 47413-8, THYR, 60128-6, CMP, 21499-6, 2156-6 #### [facility] ([id number]) [address] [place] [address] #### HA1C #### [facility] ([id number]) [address] [place] [address], [address] [place], [place] [address]Tjozknofw/100 WBC (Bld)11.0 %[facility] Comment on above:Performed By: #### CBCA, 66228-0, PINR, 16712-2, 20702-1, 52855-5, 44615-7, THYR, 64634-6, CMP, 98361-8, 2157-6 #### [facility] ([id number]) [address] [place] [address] #### HA1C #### [facility] ([id number]) [address] [place] [address], [address] [place], [place] [address]Bedgmawgrde (Bld) [#/Vol]9.2 10*3/uLHigh1.5-6.6Pro[facility] HospitalComment on above:Performed By: #### CBCA, 91657-0, PINR, 34929-5, 22997- 7, 11663-9, 65734-2, THYR, 54072-5, CMP, 49092-8, 2156-6 #### [facility] ([id number]) [address] [place] [address] #### HA1C #### [facility] ([id number]) [address] [place] [address], [address] [place], [place] [address]JKDLBUGJJVYKW6+AbnormalNONEProMedica Newburyport HospitalComment on above:Performed By: #### CBCA, 63800-9, PINR, 86142-3, 87414-6, 65840-0, 29460- 4, THYR, 67223-8, CMP, 32187-5, 2156-6 #### [facility] ([id number]) [address] [place] [address] #### HA1C #### [facility] ([id number]) [address] [place] [address], [address] [place], [place] [address]VWO WKGPPWWDFQ88.0 %NormalProMedica Newburyport HospitalComment on above:Performed By: #### CBCA, 06307-3, PINR, 63986-7, 99822-9, 22934-2, 75324- 4, THYR, 08896-3, CMP, 73753-5, 2156-6 #### [facility] ([id number]) [address] [place], [place] [address] #### HA1C #### [facility] ([id number]) [address], [address] [place], [place] [address]PRFOIRGZSP6+AbnormalNONEPOhio State Harding Hospital HospitalComment on above:Performed By: #### WILLIAM, 50355-0, PINR, 34235-8, 99071-1, 81033-6, 30276- 4, THYR, 94583-0, CMP, 35329-8, 2157-6 #### [facility] ([id number]) [address] [place] [address] #### HA1C #### [facility] ([id number]) [address], [address] [place], [place] [address]ALIDSE6+AbnormalNONEProMedToledo Hospital HospitalComment on above: Performed By: #### WILLIAM, 72707-6, PINR, 80829-4, 64575-8, 15445-0, 46712-6, THYR, 91286-2, CMP, 92619-8, 2157-6 #### [facility] ([id number]) [address] [place] [address] #### HA1C #### [facility] ([id number]) [address], [address] [place], [place] [address]Ylfipbm Glucometer (BldC) [Mass/Vol]on 62-17-8016Kcljzzq [Mass/Vol]274 mg/xROnxz58-82TbfGcbzqpAdena Regional Medical CenterGlucose [Mass/Vol]426 mg/dL Critically qkfz94-11HveSahcxcAdena Regional Medical CenterGlucose [Mass/Vol]450 mg/dL Critically sirq42-64TcdQtgrff Toledo HospitalGlucose [Mass/Vol]245 mg/dLHigh 65-99ProAdena Regional Medical CenterHeparin unfractionated Chromogenic method Qn (PPP) on 04-42-9876VCVV XA UFH0.38 IU/mLNormal0.30-0.70[facility] Comment on above:Result Comment: Optimal time for testing is 6 hrs post dosage This test is specific for monitoring patients on UFH, and is not recommended for use with other Anti-Xa medications.Performed By: #### CBCA, 07741-1, PINR, 67584-5, 65524-4, 97870-1, 16457-8, THYR, 76252-1, CMP, 24160-0, 2157-6 #### [facility] ([id number]) [address] [place] [address] #### HA1C #### [facility] ([id number]) [address] [facility], [address] [place], [place] [address]HLDX XA UFH0.44 IU/mLNormal0.30-0.70[facility] Comment on above:Result Comment: Optimal time for testing is 6 hrs post dosage This test is specific for monitoring patients on UFH, and is not recommended for use with other Anti-Xa medications.Performed By: #### WILLIAM, 17068-6, PINR, 69534-5, 03552-4, 26185-0, 93968-0, THYR, 20776-1, CMP, 68664-0, 2156-6 #### [facility] ([id number]) [address] [place] [address] #### HA1C #### [facility] ([id number]) [address] [facility], [address] [place], [place] [address]VMCNIONHZry 73-17-2231Zbgvgjzam [Mass/Vol]1.8 mg/dLNormal1.8-2.6 [facility] HospitalComment on above:Performed By: #### CBCA, 57824-1, PINR, 77541-0, 00971-2, 59792-5, 16836-7, THYR, 09214-2, CMP, 63351-2, 2157-6 #### [facility] ([id number]) [facility] [place] [address] #### HA1C #### [facility] ([id number]) [address], [address] [place], [place] [address]LKV AND AUTO DIFFon 80-21-7936XLXWWTMJYAY5+AbnormalNONEProMedToledo Hospital HospitalComment on above:Performed By: #### CBCA, 03742-5, PINR, 60438- 9, 79063-7, 26660-8, 08497-4, THYR, 01483-8, CMP, 38034-5, 2157-6 #### [facility] ([id number]) [address] [place] [address] #### HA1C #### [facility] ([id number]) [address], [address] [place], [place] [address]Ggcebdorfkuz Ql (Bld)2+AbnormalNONEPOhio State Harding Hospital Hospital Comment on above:Performed By: #### CBCA, 76907-2, PINR, 06269-9, 07329-9, 31613-3, 59557-2, THYR, 02295-1, CMP, 62340-9, 2157-6 #### [facility] ([id number]) [address] [place] [address] #### HA1C #### [facility] ([id number]) [address], [address] [place], [place] [address]Efkm form neutrophils/100 WBC (Bld)7.0 %NormalProMedica Newburyport HospitalComment on above:Performed By: #### CBCA, 10585-8, PINR, 13622-5, 85094- 7, 17181-8, 82961-1, THYR, 67407-6, CMP, 98580-2, 2157-6 #### [facility] ([id number]) [address] [place], [place] [address] #### HA1C #### [facility] ([id number]) [address], [address] [place], [place] [address]SQZY1+AbnormalNONEPOhio State Harding Hospital HospitalComment on above: Performed By: #### CBCA, 35177-4, PINR, 85467-9, 59868-8, 29330-9, 41327-8, THYR, 94667-0, CMP, 24417-7, 2156-6 #### [facility] ([id number]) [address] [place] [address] #### HA1C #### [facility] ([id number]) [address] [place] [address], [address] [place], [place] [address]Gmvulkhawhq (Bld) [#/Vol]0.6 10*3/uLHigh0.0-0.4ProAdena Regional Medical CenterComment on above:Performed By: #### CBCA, 98402-0, PINR, 68963-9, 80656- 7, 55661-0, 95405-3, THYR, 03441-4, CMP, 30995-9, 2156- #### [facility] ([id number]) [address] [place] [address] #### HA1C #### [facility] ([id number]) [address] [place] [address], [address] [place], [place] [address]Ypnksogwfkv/100 WBC (Bld)7.0 %NormalOhioHealth Arthur [facility] Comment on above:Performed By: #### CBCA, 40028-4, PINR, 45760-7, 16336-6, 96767-4, 85870-4, THYR, 58801-0, CMP, 98563-7, 2156- #### [facility] ([id number]) [address] [place] [address] #### HA1C #### [facility] ([id number]) [address] [place] [address], [address] [place], [place] [address]Ozecxnyqbqb distribution width (RBC) [Ratio]19.3 %High11.5-15.0 [facility] HospitalComment on above:Performed By: #### CBCA, 04648-5, PINR, 38756-5, 84576-6, 59453-6, 60788-3, THYR, 78955-2, CMP, 25306-9, 2156-6 #### [facility] ([id number]) [address] [place] [address] #### HA1C #### [facility] ([id number]) [address], [address] [place], [place] [address]LBVPYUJJ2+AbnormalNONEProMedica Newburyport HospitalComment on above: Performed By: #### CBCA, 09395-8, PINR, 65075-8, 72017-8, 88325-8, 29212-3, THYR, 44471-8, CMP, 06292-8, 2156- #### [facility] ([id number]) [address] [place] [address] #### HA1C #### [facility] ([id number]) [address], [address] [place], [place] [address]Xbarjwpnhp (Bld) [Volume fraction]29.9 %Xxu86-92ZeoGvaltu [facility] HospitalComment on above:Performed By: #### CBCA, 98347-6, PINR, 14063-6, 45528- 7, 88685-2, 34895-5, THYR, 17125-8, CMP, 14077-2, 2156- #### [facility] ([id number]) [address] [place] [address] #### HA1C #### [facility] ([id number]) [address], [address] [place], [place] [address]Hxhiswxcci (Bld) [Mass/Vol]10.0 g/dLLow13.0-17.0ProCherrington Hospitalca [facility] HospitalComment on above:Performed By: #### CBCA, 39751-1, PINR, 46428-6, 90613-7, 05929-0, 11986-8, THYR, 16399-2, CMP, 84831-1, 2157-6 #### [facility] ([id number]) [address] [place] [address] #### HA1C #### [facility] ([id number]) [address] [place] [address], [address] [place], [place] [address]BGBMEK-ECEGR BODY1+AbnormalNONEProMedica [facility]buryport HospitalComment on above:Performed By: #### CBCA, 85421-4, PINR, 37721-7, 04586-7, 88872-3, 91208-6, THYR, 30445-2, CMP, 82875-6, 2157-6 #### [facility] ([id number]) [address] [place] [address] #### EVERARDO1C #### [facility] ([id number]) [address] [place] [address], [address] [place], [place] [address]MIUNPUXEIJT4+AbnormalNONEProMedica [facility]port HospitalComment on above:Performed By: #### CBCA, 52399-9, PINR, 77552-3, 39436-7, 19258-2, 16113- 4, THYR, 62575-0, CMP, 40574-3, 2156-6 #### [facility] ([id number]) [address] [place] [address] #### HA1C #### [facility] ([id number]) [address] [place] [address], [address] [place], [place] [address]Xdzwxpmztoc (Bld) [#/Vol]1.9 10*3/uLNormal1.0-3.5Pro[facility]ica [facility] HospitalComment on above:Performed By: #### CBCA, 83293-8, PINR, 02526-1, 26957-4, 99299-5, 02182-4, THYR, 92285-0, CMP, 50867-0, 2157-6 #### [facility] ([id number]) [address] [place] [address] #### HA1C #### [facility] ([id number]) [address], [address] [place], [place] [address]Prqycvjnrdu/100 WBC (Bld)23.0 %NormalOhioHealth Arthur [facility] Comment on above:Performed By: #### CBCA, 51551-8, PINR, 82754-3, 33511-2, 72446-2, 92563-4, THYR, 91176-3, CMP, 71639-6, 2156-6 #### [facility] ([id number]) [address] [place] [address] #### HA1C #### [facility] ([id number]) [address], [address] [place], [place] [address]KXX (RBC) [Entitic mass]24.8 etGmk05-64IuiTcbkrwOhioHealth Arthur [facility] Comment on above:Performed By: #### CBCA, 84213-1, PINR, 95100-3, 17506-3, 40191-4, 17588-8, THYR, 27234-9, CMP, 05485-3, 2156-6 #### [facility] ([id number]) [address] [place] [address] #### HA1C #### [facility] ([id number]) [address], [address] [place], [place] [address]UICN (RBC) [Mass/Vol]33.4 g/xKSuvnku36-64SbrOqqkhwOhioHealth Arthur G.H. Bing, MD, Cancer CenterComment on above:Performed By: #### CBCA, 09815-2, PINR, 91056-2, 21314- 7, 61361-2, 30088-0, THYR, 13052-6, CMP, 99557-3, 2156-6 #### [facility] ([id number]) [address] [place] [address] #### HA1C #### [facility] ([id number]) [address], [address] [place], [place] [address]ODL (RBC) [Entitic vol]74 mHYhr85-625VhgSmvbquOhioHealth Arthur [facility] Comment on above:Performed By: #### CBCA, 51401-4, PINR, 68102-4, 71403-3, 63018-4, 59398-6, THYR, 61873-9, CMP, 14495-5, 2157-6 #### [facility] ([id number]) [address] [place] [address] #### HA1C #### [facility] ([id number]) [address] [facility], [address] [place], [place] [address]Cuuurxbak (Bld) [#/Vol]0.6 10*3/uLNormal0-0.9[facility] MD, Cancer CenterComment on above:Performed By: #### CBCA, 20409-2, PINR, 42597-1, 62956- 7, 93203-7, 75924-4, THYR, 39680-2, CMP, 49216-4, 7-6 #### [facility] ([id number]) [address] [place] [address] #### HA1C #### [facility] ([id number]) [address] [facility], [address] [place], [place] [address]Vufvsfhqs/100 WBC (Bld)7.0 %NormalProAdena Regional Medical Center Comment on above:Performed By: #### CBCA, 98772-1, PINR, 87001-7, 99327-0, 79786-4, 97643-8, THYR, 59681-7, CMP, 97953-3, 2156-6 #### [facility] ([id number]) [address] [place] [address] #### HA1C #### [facility] ([id number]) [address], [address] [place], [place] [address]Zuzsvjfrfro (Bld) [#/Vol]5.1 10*3/uLNormal1.5-6.6Pro[facility] Stiles HospitalComment on above:Performed By: #### CBCA, 47161-6, PINR, 25966-4, 88949-0, 12218-1, 02902-2, THYR, 51677-5, CMP, 45007-7, 2157-6 #### [facility] ([id number]) [address] [place] [address] #### HA1C #### [facility] ([id number]) [address], [address] [place], [place] [address]Franffsr mean volume (Bld) [Entitic vol]10.1 fLNormal7-12 [facility] HospitalComment on above:Performed By: #### CBCA, 80447-1, PINR, 14925-6, 94156-9, 75535-6, 49025-4, THYR, 54234-5, CMP, 69069-3, 2157-6 #### [facility] ([id number]) [address] [place] [address] #### HA1C #### [facility] ([id number]) [address], [address] [place], [place] [address]Djkjypjlq (Bld) [#/Vol]228 10*3/jRSarapu631-942LeoWpkahq [facility] HospitalComment on above:Performed By: #### CBCA, 79185-2, PINR, 33663-2, 47574- 7, 46147-9, 07464-1, THYR, 00603-3, CMP, 79087-1, 2157-6 #### [facility] ([id number]) [address] [place] [address] #### HA1C #### [facility] ([id number]) [address], [address] [place], [place] [address]UXESORXYSSXAG0+AbnormalNONEProMedica Stiles HospitalComment on above:Performed By: #### CBCA, 16057-2, PINR, 46090-2, 25267-3, 37831-6, 42829- 4, THYR, 79906-7, CMP, 42060-3, 7-6 #### [facility] ([id number]) [address] [place] [address] #### HA1C #### [facility] ([id number]) [address] [place] [address], [address] [place], [place] [address]BMS COUNT4.03 X10E12/LLow4.10-5.70ProCherrington Hospitalca [facility] Comment on above:Performed By: #### CBCA, 34256-2, PINR, 20550-5, 84408-1, 54498-0, 89923-9, THYR, 59732-5, CMP, 06820-1, 2156-6 #### [facility] ([id number]) [address] [place] [address] #### HA1C #### [facility] ([id number]) [address] [place] [address], [address] [place], [place] [address]IXI LPXZRLTRAB84.0 %NormalProAdena Regional Medical CenterComment on above:Performed By: #### CBCA, 49611-6, PINR, 57513-2, 56994-8, 30795-4, 83200- 4, THYR, 30393-0, CMP, 04229-9, 2156-6 #### [facility] ([id number]) [address] [place] [address] #### HA1C #### [facility] ([id number]) [address] [place] [address], [address] [place], [place] [address]QWMWLGQITT4+AbnormalNONEProMedica Newburyport HospitalComment on above:Performed By: #### CBCA, 25957-3, PINR, 02362-6, 51516-6, 25655-5, 11787- 4, THYR, 32397-7, CMP, 45871-2, 2157-6 #### [facility] ([id number]) [address] [place] [address] #### HA1C #### [facility] ([id number]) [address] [place] [address], [address] [place], [place] [address]WYKGVC9+AbnormalNONEProMedica Newburyport HospitalComment on above: Performed By: #### CBCA, 91308-4, PINR, 00175-6, 97195-0, 65242-9, 17662-1, THYR, 01601-5, CMP, 00510-3, 2157-6 #### [facility] ([id number]) [address] [place] [address] #### HA1C #### [facility] ([id number]) [address] [place] [address], [address] [place], [place] [address]BTF (Bld) [#/Vol]8.2 10*3/uLNormal4.0-11.0ProMedica [facility] HospitalComment on above:Performed By: #### CBCA, 98762-5, PINR, 28312-3, 81250- 7, 25917-1, 92032-0, THYR, 13052-1, CMP, 72696-7, 2157-6 #### [facility] ([id number]) [address] [place] [address] #### HA1C #### [facility] ([id number]) [address] [place] [address], [address] [place], [place] [address]PH [Catalytic activity/Vol]on [id number] U/OGbva67-665 [facility] HospitalComment on above:Performed By: #### CBCA, 51254-6, PINR, 16523-7, 90267-4, 73142-5, 00813-6, THYR, 58527-8, CMP, 71897-0, 2157-6 #### [facility] ([id number]) [address] [place] [address] #### HA1C #### [facility] ([id number]) [address] [place] [address], [address] [place], [place] [id number] U/UPyxv58-023XmhIzsidoAdena Regional Medical CenterComment on above: Performed By: #### CBCA, 02231-4, PINR, 43999-2, 24399-7, 97901-3, 09910-5, THYR, 73899-0, CMP, 81559-9, 2157-6 #### [facility] ([id number]) [address] [place] [address] #### HA1C #### [facility] ([id number]) [address] [place] [address], [address] [place], [place] [id number] U/UUkbp75-621OgtFtlqjuAdena Regional Medical CenterComment on above: Performed By: #### CBCA, 94537-4, PINR, 51588-9, 58543-2, 22607-5, 36947-6, THYR, 83497-7, CMP, 79236-3, 2157-6 #### [facility] ([id number]) [address] [place] [address] #### HA1C #### [facility] ([id number]) [address] [place] [address], [address] [place] [id number] METABOLIC PANELon 39-70-6786Xweokab [Mass/Vol]3.4 g/dLNormal3.2-5.3[facility] & Brent[facility] HospitalComkalkaska memorial health center on above:Performed By: #### CBCA, 52075-3, PINR, 52139-4, 15132-2, 89622-1, 24796-6, THYR, 58358-4, CMP, 53390-7, 2157-6 #### [facility] ([id number]) [address] [place] [address] #### HA1C #### [facility] ([id number]) [address], [address] [place], [place] [address]FGG [Catalytic activity/Vol]109 U/CQwuvqw31-023EiwVdudvq [facility] HospitalComment on above:Performed By: #### CBCA, 98568-6, PINR, 07103-7, 55207- 7, 19021-1, 62703-5, THYR, 77844-5, CMP, 70713-6, 2157-6 #### [facility] ([id number]) [address] [place], [place] [address] #### HA1C #### [facility] ([id number]) [address] [facility] [address], [address] [place], [place] [address]ANM [Catalytic activity/Vol]27 U/LNormal0-40ProMedica Newburyport HospitalComment on above:Performed By: #### DARRELLA, 09658-2, PINR, 98762-9, 60813- 7, 76026-3, 58816-1, THYR, 53946-0, CMP, 81641-1, 2157-6 #### [facility] ([id number]) [address] [place], [place] [address] #### HA1C #### [facility] ([id number]) [address], [address] [place], [place] [address]Bbyyg gap [Moles/Vol]10 mmol/LNormal5-15Pro[facility] HospitalComment on above:Performed By: #### CBCA, 54023-9, PINR, 09293-5, 24779- 7, 26543-1, 69020-2, THYR, 68600-0, CMP, 43027-9, 2157-6 #### [facility] ([id number]) [address] [place], [place] [address] #### HA1C #### [facility] ([id number]) [address], [address] [place], [place] [address]CHY [Catalytic activity/Vol]69 U/LHigh0-41ProAdena Regional Medical CenterComment on above:Performed By: #### WILLIAM, 82968-0, PINR, 79773-5, 32869- 7, 20562-8, 84527-8, THYR, 09571-9, CMP, 18879-4, 2157-6 #### [facility] ([id number]) [address] [place] [address] #### HA1C #### [facility] ([id number]) [address] [place] [address], [address] [place], [place] [address]Ibuvrlyyx [Mass/Vol]0.6 mg/dLNormal0.3-1.2POhioHealth Nelsonville Health CenterComment on above:Performed By: #### WILLIAM, 76502-5, PINR, 43664-4, 69240- 7, 87725-5, 45939-9, THYR, 49632-1, CMP, 89082-1, 7-6 #### [facility] ([id number]) [address] [place] [address] #### HA1C #### [facility] ([id number]) [address] [place] [address], [address] [place], [place] [address]Vbihrjn [Mass/Vol]8.2 mg/dLLow8.5-10.5POhioHealth Nelsonville Health Center Comment on above:Performed By: #### WILLIAM, 93210-9, PINR, 45034-3, 72653-8, 42937-1, 11164-3, THYR, 81522-6, CMP, 65487-6, 2157-6 #### [facility] ([id number]) [address] [place] [address] #### HA1C #### [facility] ([id number]) [address] [place] [address], [address] [place], [place] [address]Sskohnqi [Moles/Vol]105 mmol/LJjtxcf04-473PcqXtmirb [facility]edo HospitalComment on above:Performed By: #### CBCA, 07638-5, PINR, 92456-2, 78949- 7, 30390-0, 86596-5, THYR, 23601-6, CMP, 81051-1, 2156-6 #### [facility] ([id number]) [address] [place] [address] #### HA1C #### [facility] ([id number]) [address] [place] [address], [address] [place], [place] [address]SY0 [Moles/Vol]20 mmol/IXrh13-44GikHwsjjo [facility]buryport HospitalComment on above:Performed By: #### CBCA, 60810-8, PINR, 80467-3, 11408-5, 84959-1, 37442-6, THYR, 53212-4, CMP, 44789-6, 2156-6 #### [facility] ([id number]) [address] [place] [address] #### HA1C #### [facility] ([id number]) [address] [place] [address], [address] [place], [place] [address]Ymlaafuemp [Mass/Vol]0.79 mg/dLNormal0.60-1.30ProAdena Regional Medical CenterComment on above:Result Comment: METHOD TRACEABLE TO IDMS STANDARD Performed By: #### CBCA, 54353-0, PINR, 68746-7, 67197-6, 21567-5, 53428-9, THYR, 33181-8, CMP, 12335-0, 2156- #### [facility] ([id number]) [address] [place] [address] #### HA1C #### [facility] ([id number]) [address] [place] [address], [address] [place], [place] [address]YWK/1.73 sq M.predicted among non-blacks MDRD (S/P/Bld) [Vol rate/Area]87 mL/min/{1.73_m2}Normal>59ProMedica [facility]buryport HospitalComment on above: Result Comment: Reported eGFR is based on the CKD-EPI 2020 equation that does not use a race coefficient.Performed By: #### WILLIAM, 49042-2, PINR, 88084-0, 14420-8, 23180-2, 45980-6, THYR, 70130-0, CMP, 00298-2, 215-6 #### [facility] ([id number]) [address] [place] [address] #### HA1C #### [facility] ([id number]) [address], [address] [place], [place] [address]Ymnsvme [Mass/Vol]189 mg/fYLbjo11-50ImoVxebarOhioHealth Arthur [facility] Comment on above:Performed By: #### WILLIAM, 66429-1, PINR, 05113-6, 67790-8, 88248-9, 85966-3, THYR, 28142-6, CMP, 52121-2, 2156- #### [facility] ([id number]) [address] [address] #### HA1C #### [facility] ([id number]) [address], [address] [place], [place] [address]Xhtynkapd [Moles/Vol]4.3 mmol/LNormal3.5-5.0Ohio[facility], MD, Cancer CenterComment on above:Performed By: #### WILLIAM, 37544-2, PINR, 62890-3, 56451- 7, 29105-3, 83095-8, THYR, 32405-6, CMP, 97307-2, 2156- #### [facility] ([id number]) [address] [place] [address] #### HA1C #### [facility] ([id number]) [address], [address] [place], [place] [address]Tufsgpa [Mass/Vol]6.1 g/dLNormal6.0-8.0[facility] Comment on above:Performed By: #### CBCA, 87793-5, PINR, 27596-8, 86557-4, 56987-1, 25368-5, THYR, 33936-0, CMP, 39455-8, 2156-6 #### [facility] ([id number]) [address] [address] #### HA1C #### [facility] ([id number]) [address] [facility], [address] [place], [place] [address]Kvahkr [Moles/Vol]135 mmol/FAifywd097-499OgdOwmvss [facility] HospitalComment on above:Performed By: #### CBCA, 81965-2, PINR, 79155-9, 53451- 7, 84326-7, 19702-5, THYR, 76009-6, CMP, 81983-5, 2156- #### [facility] ([id number]) [address] [place] [address] #### HA1C #### [facility] ([id number]) [address] [place] [address], [address] [place], [place] [address]Acts nitrogen [Mass/Vol]21 mg/dLNormal5-27ProAdena Regional Medical CenterComment on above:Performed By: #### CBCA, 79257-0, PINR, 88805-4, 64308- 7, 33942-9, 41924-7, THYR, 44306-3, CMP, 10090-5, 2156- #### [facility] ([id number]) [address] [place] [address] #### HA1C #### [facility] ([id number]) [address] [place] [address], [address] [place], [place] [address]Qnfknqi Glucometer (BldC) [Mass/Vol]on 16-05-2230Fkokzit [Mass/Vol]155 mg/hJXqcd29-11ObyEhxzziAdena Regional Medical CenterGlucose [Mass/Vol]238 mg/dL Hhel21-62EpuQrxjdv Stiles HospitalGlucose [Mass/Vol]413 mg/dLCritically high 65-99Ohio[facility], MD, Cancer CenterGlucose [Mass/Vol]218 mg/dBQjml76-82LgiHqfoevOhioHealth Arthur G.H. Bing, MD, Cancer CenterHeparin unfractionated Chromogenic method Qn (PPP)on 01-22-2024 ANTI XA UFH0.28 IU/mLLow0.30-0.70Ohio[facility] Bing, MD, Cancer CenterComment on above: Result Comment: Optimal time for testing is 6 hrs post dosage This test is specific for monitoring patients on UFH, and is not recommended for use with other Anti-Xa medications.Performed By: #### CBCA, 35007-8, PINR, 87273-7, 07283-6, 37841-9, 53431-8, THYR, 43455-6, CMP, 27276-8, 2156-6 #### [facility] ([id number]) [address] [place] [address] #### HA1C #### [facility] ([id number]) [address] [place] [address], [address] [address]CVP XA UFH0.24 IU/mLLow0.30-0.70[facility] Comment on above:Result Comment: Optimal time for testing is 6 hrs post dosage This test is specific for monitoring patients on UFH, and is not recommended for use with other Anti-Xa medications.Performed By: #### CBCA, 89762-8, PINR, 98864-2, 29017-4, 75885-9, 68728-7, THYR, 06950-0, CMP, 13857-0, 2156-6 #### [facility] ([id number]) [address] [place] [address] #### HA1C #### [facility] ([id number]) [address] [place] [address], [address] [place] [address]IVXU XA UFH0.23 IU/mLLow0.30-0.70[facility] Comment on above:Result Comment: Optimal time for testing is 6 hrs post dosage This test is specific for monitoring patients on UFH, and is not recommended for use with other Anti-Xa medications.Performed By: #### DARRELLA, 92261-9, PINR, 39964-6, 65702-5, 68635-2, 62350-3, THYR, 82500-0, CMP, 16849-1, 2157-6 #### [facility] ([id number]) [address] [place] [address] #### HA1C #### [facility] ([id number]) [address] [place] [address], [address] [place], [place] [address]Nvufn 1996 panelon 19-17-1746Atcelknubad [Mass/Vol]97 mg/dLLow 150-200ProAdena Regional Medical CenterComment on above:Performed By: #### WILLIAM, 03919- 5, PINR, 47574-2, 63698-4, 24065-7, 06214-9, THYR, 75454-5, CMP, 84242-1, 2156- #### [facility] ([id number]) [address] [place] [address] #### HA1C #### [facility] ([id number]) [address] [place] [address], [address] [place], [place] [address]Rxlswcsexsq in HDL [Mass/Vol]50 mg/dLNormal>39ProAdena Regional Medical CenterComment on above:Result Comment: HDL <40 mg/dL - High Risk HDL > or = 40mg/dL- Desirable HDL >60 mg/dL - Negative Risk Performed By: #### DARRELLA, 98673-6, PINR, 53068-2, 96605-3, 77562-7, 03504-9, THYR, 09824-1, CMP, 98060-3, 7-6 #### [facility] ([id number]) [address] [place] [address] #### HA1C #### [facility] ([id number]) [address] [place] [address], [address] [place], [place] [address]Fnsgmethmoz in LDL [Mass/Vol]39 mg/dLNormal<130ProAdena Regional Medical CenterComment on above:Result Comment: LDL <100 mg/dL - Desirable LDL >160 mg/dL - High Risk Performed By: #### WILLIAM, 30298-2, PINR, 01427-7, 71555-1, 99322-7, 07747-2, THYR, 43296-8, CMP, 54374-8, 7-6 #### [facility] ([id number]) [address] [place] [address] #### HA1C #### [facility] ([id number]) [address] [place] [address], [address] [place], [place] [address]Hbgeyyyyfgi in VLDL [Mass/Vol]8 mg/dLNormal0-30ProAdena Regional Medical CenterComment on above:Performed By: #### WILLIAM, 67775-3, PINR, 07757-9, 62591- 7, 35138-0, 07295-0, THYR, 42502-2, CMP, 27024-0, 2157-6 #### [facility] ([id number]) [address] [place] [address] #### HA1C #### [facility] ([id number]) [address] [place] [address], [address] [place], [place] [address]SVHJDRRVDLP:HDL1.5Aozhno3.0-5.0ProAdena Regional Medical CenterComment on above:Performed By: #### WILLIAM, 54908-4, PINR, 36016-7, 90726-8, 76018-0, 89409-3, THYR, 64808-9, CMP, 86583-2, 2157-6 #### [facility] ([id number]) [address] [place] [address] #### HA1C #### [facility] ([id number]) [address], [address] [place], [place] [address]Nnwapppeveep [Mass/Vol]38 mg/xNIdyhbr42-923HwqJdhlcc Newburyport HospitalComment on above:Performed By: #### CBCA, 83388-4, PINR, 31021-1, 38621- 7, 41260-7, 33841-6, THYR, 85084-5, CMP, 14386-1, 2156-6 #### [facility] ([id number]) [address] [place] [address] #### HA1C #### [facility] ([id number]) [address], [address] [place], [place] [address]ESOHLXEAPli 54-44-5124Fkwpgrprh [Mass/Vol]2.0 mg/dLNormal1.8-2.6 [facility] HospitalComment on above:Performed By: #### CBCA, 29400-5, PINR, 32669-8, 64609-1, 58891-1, 79075-2, THYR, 19387-4, CMP, 24457-5, 2156-6 #### [facility] ([id number]) [address] [place] [address] #### HA1C #### [facility] ([id number]) [address], [address] [place], [place] [address]Fqjbyblkb [Mass/Vol]2.2 mg/dLNormal1.8-2.6ProMedica [facility]port HospitalComment on above:Performed By: #### CBCA, 95428-4, PINR, 81105-1, 75952- 7, 54422-9, 45153-1, THYR, 64349-7, CMP, 37512-9, 7-6 #### [facility] ([id number]) [address] [address] #### HA1C #### [facility] ([id number]) [address] [place] [address], [address] [place] [address]Fbvmxylzummpd [place] [Mass/Vol]on 19-39-7028JOTQJNCBKQCYN0.08 ng/mL High<0.05ProAdena Regional Medical CenterComment on above:Result Comment: NOTE <0.50 ng/mL - Low risk of severe sepsis and/or septic shock. <2.00 ng/mL - Recommend retesting within 6-24 hours. >2.00 ng/mL - High risk of sepsis and/or septic shock.Performed By: #### CBCA, 72738-2, PINR, 69259-4, 08261-7, 68881-8, 55091-9, THYR, 46864-3, CMP, 74069-8, 2156-6 #### [facility] ([id number]) [address] [place] [address] #### HA1C #### [facility] ([id number]) [address] [place] [address], [address] [address]Nnkxxniz I.cardiac High sensitivity method [Mass/Vol]on 43 HOUR TROP I, HIGH MBFGOVKSYUD63 ng/LHigh<21Pro[facility] Comment on above:Result Comment: Elevations of hs-Troponin may be due to causes other than myocardial ischemia. Recommend serial hs-Troponin testing be performed. For the initial evaluation and management of chest pain patients, refer to the algorithms linked below. Emergency Patient: [email or web address]://www.[employer]/dv/dl.aspx?[email or web address]&[email or web address]&uh=acaea Inpatient: [email or web address]://[email or web address].[employer]/dv/dl.aspx?[email or web address]&x=55302&uh=acaeaPerformed By: #### CBCA, 67629-9, PINR, 41873-2, 69749-6, 56721-9, 70426-6, THYR, 64710- 1, CMP, 38428-2, 2157-6 #### [facility] ([id number]) [address] [place] [address] #### HA1C #### [facility] ([id number]) [address], [address] [place], [place] [address] HOUR TROP I, HIGH VTVQUADGHIT69 ng/LHigh<21[facility] Brentwood HospitalComment on above:Result Comment: Elevations of hs-Troponin may be due to causes other than myocardial ischemia. Recommend serial hs-Troponin testing be performed. For the initial evaluation and management of chest pain patients, refer to the algorithms linked below. Emergency Patient: [email or web address]://[email or web address].[employer].com/dv/dl.aspx?[email or web address]&o=75742&uh=acaea Inpatient: [email or web address]://[email or web address].[employer].com/dv/dl.aspx?[email or web address]&z=17355&uh=acaeaPerformed By: #### CBCA, 36210-9, PINR, 70038-4, 98644-3, 61596-0, 98390-6, THYR, 88239- 1, CMP, 93098-5, 2157-6 #### [facility] ([id number]) [address] [place] [address] #### HA1C #### [facility] ([id number]) [address], [address] [place], [place] [address]RU WRIST LT MIN 3 VWSon 71-89-1383MH WRIST LT MIN 3 VWSXR WRIST LT MIN 3 VWS History: Trauma. [...] by Liam Cody MD on 01/22/2024 10:33 PMNormalProMedica Newburyport HospitalBLOOD CULTUREon 08-14-1240Ofxqmzjt identified Aer cx Nom (Bld)CULTURE RESULTS NO GROWTH 5 DAYSNormalProAdena Regional Medical CenterBacteria identified Aer cx Nom (Bld)CULTURE RESULTS NO GROWTH 5 DAYSNormalProAdena Regional Medical CenterCBC AND AUTO DIFFon 01-21-2024 ABSOLUTE BASOPHIL0.1 X10E9/LNormal0.0-0.2Pro[facility] & Brentwood HospitalComment on above:Performed By: #### CBCA, 72048-7, PINR, 66625-8, 79686-6, 03449-0, 82387- 4, THYR, 40172-1, CMP, 80837-0, 2157-6 #### [facility] ([id number]) [address] [place] [address] #### HA1C #### [facility] ([id number]) [address] [place] [address], [address] [place] [address]WAYGMZKH NEUTROPHIL7.7 X10E9/LHigh1.5-6.6ProMediTrinity Health System Twin City Medical CenterComment on above:Performed By: #### CBCA, 04491-0, PINR, 81491-1, 63434- 7, 89021-1, 38895-1, THYR, 89431-7, CMP, 78017-9, 2157-6 #### [facility] ([id number]) [address] [place] [address] #### HA1C #### [facility] ([id number]) [address] [place] [address], [address] [place], [place] [address]Syacjtmqpxez Ql (Bld)2+AbnormalNONEPOhioHealth [facility]ville Health Center Comment on above:Performed By: #### CBCA, 70917-6, PINR, 25385-6, 28921-8, 99495-1, 76418-3, THYR, 22668-6, CMP, 04716-1, 2157-6 #### [facility] ([id number]) [address] [place] [address] #### HA1C #### [facility] ([id number]) [address] [facility], [address] [place], [place] [address]Mrlbhqxxv/100 WBC (Bld)0.8 %NormalProAdena Regional Medical Center Comment on above:Performed By: #### CBCA, 83158-3, PINR, 93706-9, 45852-0, 26663-7, 78669-6, THYR, 18597-4, CMP, 46449-4, 2157-6 #### [facility] ([id number]) [address] [place] [address] #### HA1C #### [facility] ([id number]) [address] [facility], [address] [place], [place] [address]SHDJ9+AbnormalNONEPOhio State Harding Hospital HospitalComment on above: Performed By: #### CBCA, 75405-0, PINR, 13802-4, 27139-3, 10992-0, 49820-7, THYR, 28303-6, CMP, 83705-3, 2157-6 #### [facility] ([id number]) [address] [place], [place] [address] #### HA1C #### [facility] ([id number]) [address] [facility], [address] [place], [place] [address]Hgqbktimxzi (Bld) [#/Vol]0.1 10*3/uLNormal0.0-0.4ProAdena Regional Medical CenterComment on above:Performed By: #### CBCA, 37475-7, PINR, 59762-2, 34823-5, 13259-5, 99955-4, THYR, 36862-3, CMP, 84287-3, 7-6 #### [facility] ([id number]) [address] [place] [address] #### HA1C #### [facility] ([id number]) [address] [facility], [address] [place], [place] [address]Txqoajzcuzn/100 WBC (Bld)0.7 %NormalProMedica Suburban [facility] & [facility] Comment on above:Performed By: #### CBCA, 46427-8, PINR, 57099-1, 15398-1, 36904-5, 38748-9, THYR, 57912-1, CMP, 59280-2, 2156-6 #### [facility] ([id number]) [address] [place] [address] #### HA1C #### [facility] ([id number]) [address] [facility], [address] [place], [place] [address]Mojsgmgoowc distribution width (RBC) [Ratio]19.9 %High11.5-15.0 [facility] & Brentwood HospitalComment on above:Performed By: #### CBCA, 53053-3, PINR, 69235-2, 41325-5, 53049-8, 55850-6, THYR, 48152-1, CMP, 30382-6, 2156-6 #### [facility] ([id number]) [address] [place] [address] #### HA1C #### [facility] ([id number]) [address] [place] [address], [address] [place], [place] [address]ICTKGPYT0+AbnormalNONEProMedica Suburban Community Hospital & Brentwood HospitalComment on above: Performed By: #### CBCA, 94927-2, PINR, 78409-2, 66627-2, 48886-0, 12378-8, THYR, 19718-7, CMP, 81355-1, 2157-6 #### [facility] ([id number]) [address] [place] [address] #### HA1C #### [facility] ([id number]) [address], [address] [place], [place] [address]Builqelxyu (Bld) [Volume fraction]31.3 %Uha56-18JroHnklvr [facility] HospitalComment on above:Performed By: #### CBCA, 67880-5, PINR, 92876-8, 17801- 7, 14463-0, 05964-6, THYR, 45252-2, CMP, 03826-5, 2156-6 #### [facility] ([id number]) [address] [place] [address] #### HA1C #### [facility] ([id number]) [address], [address] [place], [place] [address]Knlbxpzinc (Bld) [Mass/Vol]10.5 g/dLLow13.0-17.0ProNationwide Children'S Hospital HospitalComment on above:Performed By: #### CBCA, 61553-5, PINR, 62394-2, 01585-3, 57035-4, 85133-6, THYR, 59368-0, CMP, 89947-1, 2156- #### [facility] ([id number]) [address] [place] [address] #### HA1C #### [facility] ([id number]) [address], [address] [place], [place] [address]ABNIRMDQYJJ8+AbnormalNONEProMedica Newburyport HospitalComment on above:Performed By: #### CBCA, 94628-8, PINR, 83785-0, 85472-1, 93622-2, 92184- 4, THYR, 30852-0, CMP, 22937-5, 2156- #### [facility] ([id number]) [address] [place] [address] #### HA1C #### [facility] ([id number]) [address] [place] [address], [address] [place], [place] [address]Lbnbrafgxol (Bld) [#/Vol]1.2 10*3/uLNormal1.0-3.5[facility] HospitalComment on above:Performed By: #### CBCA, 30432-8, PINR, 60188-8, 24877-8, 79452-5, 37905-7, THYR, 27074-0, CMP, 18952-9, 2157-6 #### [facility] ([id number]) [address] [place] [address] #### HA1C #### [facility] ([id number]) [address] [place] [address], [address] [place], [place] [address]Flpexpziwit/100 WBC (Bld)11.9 %NormalOhioHealth Arthur [facility] Comment on above:Performed By: #### CBCA, 15733-0, PINR, 78978-6, 67557-9, 02972-8, 13419-4, THYR, 96688-7, CMP, 59326-6, 2157-6 #### [facility] ([id number]) [address] [place] [address] #### HA1C #### [facility] ([id number]) [address] [place] [address], [address] [place], [place] [address]UUG (RBC) [Entitic mass]24.8 gdNxr11-31IynRsmnezOhioHealth [facility] Comment on above:Performed By: #### CBCA, 05949-2, PINR, 94650-8, 96750-5, 61946-4, 23559-9, THYR, 28172-6, CMP, 78641-2, 2157-6 #### [facility] ([id number]) [address] [place] [address] #### HA1C #### [facility] ([id number]) [address], [address] [place], [place] [address]GWLD (RBC) [Mass/Vol]33.6 g/jSRmizmm59-62CylHxsuig [place] HospitalComment on above:Performed By: #### CBCA, 28012-3, PINR, 69844-9, 07070- 7, 90618-1, 99809-1, THYR, 23638-9, CMP, 17312-0, 2157-6 #### [facility] ([id number]) [address] [place] [address] #### HA1C #### [facility] ([id number]) [address], [address] [place], [place] [address]PIS (RBC) [Entitic vol]74 qOUlu84-319WuqQyhmyz [facility] Comment on above:Performed By: #### CBCA, 02792-3, PINR, 39330-3, 40990-6, 40365-9, 61591-0, THYR, 24684-5, CMP, 00073-4, 2157-6 #### [facility] ([id number]) [address] [place] [address] #### HA1C #### [facility] ([id number]) [address], [address] [place], [place] [address]Hulsumths (Bld) [#/Vol]1.2 10*3/uLHigh0-0.9ProAdena Regional Medical CenterComment on above:Performed By: #### CBCA, 34273-1, PINR, 57668-8, 71454- 7, 98238-6, 65313-6, THYR, 79017-0, CMP, 60819-0, 2157-6 #### [facility] ([id number]) [address] [place] [address] #### HA1C #### [facility] ([id number]) [address], [address] [place], [place] [address]Reunhauqz/100 WBC (Bld)12.0 %[facility] Comment on above:Performed By: #### CBCA, 80524-8, PINR, 06275-1, 21268-1, 10759-4, 68177-9, THYR, 27642-8, CMP, 29214-5, 2157-6 #### [facility] ([id number]) [address] [place] [address] #### HA1C #### [facility] ([id number]) [address], [address] [place], [place] [address]Whtmequoefv/100 WBC (Bld)74.6 %[facility] Comment on above:Performed By: #### CBCA, 70434-3, PINR, 15714-0, 34048-0, 80995-0, 07292-8, THYR, 70355-9, CMP, 98737-5, 7-6 #### [facility] ([id number]) [address] [place] [address] #### HA1C #### [facility] ([id number]) [address], [address] [place], [place] [address]Ldbsafty mean volume (Bld) [Entitic vol]10.1 fLNormal7-12 ProMChillicothe [facility] Medical CenterComment on above:Performed By: #### CBCA, 56386-7, PINR, 99731-9, 20449-8, 19909-2, 87156-9, THYR, 16108-2, CMP, 81051-6, 7-6 #### [facility] ([id number]) [address] [place] [address] #### HA1C #### [facility] ([id number]) [address], [address] [place], [place] [address]Qjezffuup (Bld) [#/Vol]252 10*3/aMXulgfr237-270PzlXxccmy Newburyport HospitalComment on above:Performed By: #### CBCA, 60087-4, PINR, 03083-9, 42687- 7, 92790-4, 23592-1, THYR, 25610-1, CMP, 60654-1, 2157-6 #### [facility] ([id number]) [address] [place] [address] #### HA1C #### [facility] ([id number]) [address] [facility], [address] [place], [place] [address]TZLGLWNDSNIDQ1+AbnormalNONEProMedica Newburyport HospitalComment on above:Performed By: #### CBCA, 43530-4, PINR, 27036-7, 84032-0, 22936-1, 66613- 4, THYR, 17010-9, CMP, 41879-7, 7-6 #### [facility] ([id number]) [address] [place] [address] #### HA1C #### [facility] ([id number]) [address] [place] [address], [address] [place], [place] [address]QRJ COUNT4.24 X10E12/LNormal4.10-5.70ProAdena [facility] Comment on above:Performed By: #### CBCA, 65086-9, PINR, 12660-7, 79348-3, 52013-7, 63140-9, THYR, 59182-0, CMP, 05246-4, 2157-6 #### [facility] ([id number]) [address] [place] [address] #### HA1C #### [facility] ([id number]) [address] [place] [address], [address] [place], [place] [address]RPYHUU1+AbnormalNONEProMedica Newburyport HospitalComment on above: Performed By: #### CBCA, 52499-2, PINR, 56840-1, 76437-4, 08114-2, 25100-0, THYR, 04196-9, CMP, 36148-0, 2157-6 #### [facility] ([id number]) [facility] [place] [address] #### HA1C #### [facility] ([id number]) [address] [facility], [address] [place], [place] [address]SZR (Bld) [#/Vol]10.3 10*3/uLNormal4.0-11.0ProMedica Stiles HospitalComment on above:Performed By: #### CBCA, 87372-6, PINR, 63192-5, 88789- 7, 23415-0, 22667-9, THYR, 58289-6, CMP, 56701-6, 2157-6 #### [facility] ([id number]) [address] [place] [address] #### HA1C #### [facility] ([id number]) [address] [facility], [address] [place], [place] [address]XL [Catalytic activity/Vol]on 10-23-1600VID0736 U/VTnot01-509 [facility] HospitalComment on above:Performed By: #### CBCA, 94573-1, PINR, 89160-5, 31583-4, 88779-6, 12943-1, THYR, 34469-0, CMP, 29051-9, 2157-6 #### [facility] ([id number]) [address] [place] [address] #### HA1C #### [facility] ([id number]) [address] [place] [address], [address] [place], [place] [address]KUU[address] U/TAxis64-525JjpLprgkv Stiles HospitalComment on above: Performed By: #### CBCA, 22630-2, PINR, 17180-0, 13017-0, 52805-5, 58550-3, THYR, 92251-3, CMP, 93620-0, 2157-6 #### [facility] ([id number]) [address] [place] [address] #### HA1C #### [facility] ([id number]) [address] [place] [address], [address] [place], [place] [address]YIGULJQTRFRJZ METABOLIC PANELon 18-26-7679Gzvcgru [Mass/Vol]3.6 g/dLNormal3.2-5.3ProMedica [facility]port HospitalComment on above:Performed By: #### CBCA, 51704-9, PINR, 44380-5, 59574-0, 83505-4, 43410-2, THYR, 93447-7, CMP, 65045-1, 2157-6 #### [facility] ([id number]) [address] [place] [address] #### HA1C #### [facility] ([id number]) [address] [place] [address], [address] [place], [place] [address]WZB [Catalytic activity/Vol]118 U/ZMzrduk80-772KtbEcbkht [place] HospitalComment on above:Performed By: #### CBCA, 54928-6, PINR, 10180-4, 09615- 7, 57077-9, 05897-5, THYR, 40126-3, CMP, 37321-9, 2157-6 #### [facility] ([id number]) [address] [place] [address] #### HA1C #### [facility] ([id number]) [address] [place] [address], [address] [place], [place] [address]LKD [Catalytic activity/Vol]26 U/LNormal0-40ProMediOhioHealth Grant Medical Center HospitalComment on above:Performed By: #### CBCA, 69747-4, PINR, 83808-6, 81101- 7, 20880-3, 89498-1, THYR, 86774-1, CMP, 46671-9, 2157-6 #### [facility] ([id number]) [address] [place] [address] #### HA1C #### [facility] ([id number]) [address] [place] [address], [address] [place], [place] [address]Kwylc gap [Moles/Vol]9 mmol/LNormal5-15Pro[facility] Comment on above:Performed By: #### CBCA, 62268-0, PINR, 56373-4, 22374-9, 85964-4, 16530-6, THYR, 62619-4, CMP, 76843-8, 2156-12 #### [facility] ([id number]) [address] [place] [address] #### EVERARDO1C #### [facility] ([id number]) [address] [place] [address], [address] [place], [place] [address]TSM [Catalytic activity/Vol]62 U/LHigh0-41ProAdena Regional Medical CenterComment on above:Performed By: #### CBCA, 14673-6, PINR, 07737-9, 88393- 7, 91876-5, 95390-8, THYR, 51940-7, CMP, 61714-3, 2156-12 #### [facility] ([id number]) [address] [place] [address] #### HA1C #### [facility] ([id number]) [address] [place] [address], [address] [place], [place] [address]Wsbzclarr [Mass/Vol]0.6 mg/dLNormal0.3-1.2Pro[facility] Brentwood HospitalComment on above:Performed By: #### CBCA, 51768-8, PINR, 51440-4, 39803- 7, 59406-4, 86089-9, THYR, 78969-3, CMP, 43615-8, 2156- #### [facility] ([id number]) [address] [place], [place] [address] #### HA1C #### [facility] ([id number]) [address], [address] [place], [place] [address]Ynrfytu [Mass/Vol]8.3 mg/dLLow8.5-10.5POhioHealth [facility]ville [facility] Comment on above:Performed By: #### CBCA, 77674-3, PINR, 74380-7, 19231-8, 76024-1, 70642-3, THYR, 02615-1, CMP, 56274-2, 2157-6 #### [facility] ([id number]) [address] [place] [address] #### HA1C #### [facility] ([id number]) [address], [address] [place], [place] [address]Mfmvcrbd [Moles/Vol]102 mmol/RJsvsvk99-053GjjJbsodo [facility] Brentwood HospitalComment on above:Performed By: #### CBCA, 22184-6, PINR, 04197-8, 56036- 7, 88420-1, 66027-0, THYR, 89810-8, CMP, 57429-4, 2156-6 #### [facility] ([id number]) [address] [place] [address] #### HA1C #### [facility] ([id number]) [address], [address] [place], [place] [address]SE7 [Moles/Vol]22 mmol/FZlwwqr42-55OdcJstihqOhioHealth Nelsonville Health Center Comment on above:Performed By: #### CBCA, 38161-6, PINR, 29696-0, 02176-9, 19277-7, 14845-8, THYR, 87818-6, CMP, 44274-2, 2156-6 #### [facility] ([id number]) [address] [place] [address] #### HA1C #### [facility] ([id number]) [address], [address] [place], [place] [address]Psuscmyist [Mass/Vol]0.83 mg/dLNormal0.60-1.30ProAdena Regional Medical CenterComment on above:Result Comment: METHOD TRACEABLE TO IDMS STANDARD Performed By: #### WILLIAM, 13878-2, PINR, 27680-3, 31205-4, 96674-3, 12491-7, THYR, 17192-4, CMP, 02031-4, 7-6 #### [facility] ([id number]) [address] [address] #### HA1C #### [facility] ([id number]) [address] [place] [address], [address] [address]WEH/1.73 sq M.predicted among non-blacks MDRD (S/P/Bld) [Vol rate/Area]85 mL/min/{1.73_m2}Normal>59ProAdena Regional Medical CenterComment on above: Result Comment: Reported eGFR is based on the CKD-EPI 2020 equation that does not use a race coefficient.Performed By: #### WILLIAM, 64562-8, PINR, 87675-2, 13679-8, 76151-7, 16575-8, THYR, 05266-0, CMP, 47338-1, 2156-6 #### [facility] ([id number]) [address] [place] [address] #### HA1C #### [facility] ([id number]) [address] [place] [address], [address] [place], [place] [address]Xgvbvmf [Mass/Vol]270 mg/wWHkat00-84SkiUzxyasOhioHealth [facility] Comment on above:Performed By: #### DARRELLA, 77828-6, PINR, 08616-1, 16116-6, 77463-3, 68534-9, THYR, 17769-0, CMP, 71101-5, 2156-6 #### [facility] ([id number]) [address] [address] #### HA1C #### [facility] ([id number]) [address] [facility], [address] [place], [place] [address]Jgjrmxvnk [Moles/Vol]4.5 mmol/LNormal3.5-5.0[facility] MD, Cancer CenterComment on above:Performed By: #### CBCA, 80525-1, PINR, 32848-1, 94933- 7, 70026-3, 48495-8, THYR, 31313-7, CMP, 21976-7, 2156-6 #### [facility] ([id number]) [address] [place] [address] #### HA1C #### [facility] ([id number]) [address] [place] [address], [address] [place], [place] [address]Szqmewu [Mass/Vol]6.4 g/dLNormal6.0-8.0[facility] Comment on above:Performed By: #### CBCA, 81516-0, PINR, 37966-9, 34251-3, 15256-7, 50688-3, THYR, 24230-0, CMP, 42822-1, 2156- #### [facility] ([id number]) [address] [place] [address] #### HA1C #### [facility] ([id number]) [address] [place] [address], [address] [place], [place] [address]Zvnyco [Moles/Vol]133 mmol/NCvx092-545FafYyehgtAdena Regional Medical Center Comment on above:Performed By: #### CBCA, 52075-1, PINR, 96809-4, 40782-8, 96136-0, 81732-9, THYR, 04712-6, CMP, 52379-5, 2156- #### [facility] ([id number]) [address] [place] [address] #### HA1C #### [facility] ([id number]) [address] [place], [place] [address]Qmnp nitrogen [Mass/Vol]23 mg/dLNormal5-27ProAdena Regional Medical CenterComment on above:Performed By: #### CBCA, 18255-4, PINR, 80002-2, 44498- 7, 22306-0, 35748-4, THYR, 26422-2, CMP, 41939-6, 2157-6 #### [facility] ([id number]) [address] [place] [address] #### HA1C #### [facility] ([id number]) [address], [address] [place], [place] [address]KV CTA CHESTon 36-99-8281XF CTA CHESTCT CTA CHEST CLINICAL INFORMATION: Pulmonary embolism (PE) [...] by Arturo Alvarado MD on 01/21/2024 2:10 PMNormalProAdena Regional Medical CenterFibrin D-dimer DDU (PPP) [Mass/Vol]on 01-21-2024 JLMIQ5767 ng/mL DDU High<255Ohio[facility], MD, Cancer CenterComment on above:Result Comment: Results >=255ng/mL DDU: Results may be indicative of the presence of VTE. The use of the Wells score and further diagnostic tests should be considered. Elevated D-Dimer levels can also be associated with DIC, neoplasm, , trauma and liver disease. Elevated levels of rheumatoid factor may lead to an overestimation of the D-Dimer level.Performed By: #### CBCA, 92795-8, PINR, 37275-2, 29636-8, 11660-8, 10563-1, THYR, 99749-3, CMP, 08831-2, 2157-6 #### [facility] ([id number]) [address] [place] [address] #### HA1C #### [facility] ([id number]) [address] [place] [address], [address] [place], [place] [address]Taetzal Glucometer (BldC) [Mass/Vol]on 93-27-7123Uvuqfct [Mass/Vol]305 mg/sZGzmg51-05RsmVnhzlwAdena Regional Medical CenterGlucose [Mass/Vol]296 mg/dL Mmnf21-54HnxIwgxskAdena Regional Medical CenterGlucose [Mass/Vol]266 mg/tZBfov59-65AicFutburAdena Regional Medical CenterHGB A1C (GLYCO-HGB)on 61-75-2260Fpaldxd [Mass/Vol]229 mg/dLNormal [facility], Cancer CenterComment on above:Performed By: #### CBCA, 18363-5, PINR, 29032-0, 95510-2, 26075-9, 35521-3, THYR, 04454-9, CMP, 91537-9, 2157-6 #### [facility] ([id number]) [address] [address] #### HA1C #### [facility] ([id number]) [address] [place] [address], [address] [place], [place] [address]AiQ1e (Bld) [Mass fraction]9.6 %High4.4-5.6OhioHealth Arthur [facility] Bing, MD, Cancer CenterComment on above:Result Comment: NOTE ADA Guidelines Result HgbA1c Normal : less than 5.7 % Prediabetes : 5.7 % to 6.4 % Diabetes : > 6.4 % Use with caution in patients with abnormal hemoglobin variants as the half-life of red blood cells and in vivo glycation rates are affected.Performed By: #### CBCA, 01439-7, PINR, 81951-6, 16909-1, 37512-0, 40854-9, THYR, 42467-2, CMP, 28448-7, 7-6 #### [facility] ([id number]) [address] [place] [address] #### HA1C #### [facility] ([id number]) [address] [place] [address], [address] [place] [address]Laqldlf unfractionated Chromogenic method Qn (PPP)on 01-21-2024 ANTI XA UFH0.22 IU/mLLow0.30-0.70Ohio[facility] MD, Cancer CenterComment on above: Result Comment: Optimal time for testing is 6 hrs post dosage This test is specific for monitoring patients on UFH, and is not recommended for use with other Anti-Xa medications.Performed By: #### CBCA, 12336-2, PINR, 48952-9, 51831-3, 74060-9, 45550-1, THYR, 53156-0, CMP, 38469-1, 2156- #### [facility] ([id number]) [address] [place] [address] #### HA1C #### [facility] ([id number]) [address] [place] [address], [address] [place], [place] [address]BNQR XA UFH0.19 IU/mLLow0.30-0.70[facility] Comment on above:Result Comment: Optimal time for testing is 6 hrs post dosage This test is specific for monitoring patients on UFH, and is not recommended for use with other Anti-Xa medications.Performed By: #### CBCA, 64929-8, PINR, 79208-7, 31153-4, 61585-5, 93373-6, THYR, 69670-9, CMP, 32969-2, 2156-6 #### [facility] ([id number]) [address] [place] [address] #### HA1C #### [facility] ([id number]) [address] [place] [address], [address] [place], [place] [address]Esossvp (P bobo) [Moles/Vol]on 19-49-2133IVYQGTA W/REFLEX1.2 mmol/LNormal0.4-2.0ProMedica [facility]port HospitalComment on above:Result Comment: Result did not trigger repeat Lactate, re-order if needed.Performed By: #### WILLIAM, 73797-9, PINR, 43522-9, 31830-5, 71203-3, 94165-8, THYR, 25891-9, CMP, 07251-4, 2156-6 #### [facility] ([id number]) [address] [place] [address] #### HA1C #### [facility] ([id number]) [address] [place] [address], [address] [place], [place] [address]PFHGKDEMAcu 85-83-6107Qdtwpvymc [Mass/Vol]1.6 mg/dLLow1.8-2.6 [facility] HospitalComment on above:Performed By: #### WILLIAM, 67520-7, PINR, 46263-2, 70492-0, 09404-7, 85148-8, THYR, 08271-8, CMP, 89409-5, 2156-6 #### [facility] ([id number]) [address] [place] [address] #### HA1C #### [facility] ([id number]) [address] [place] [address], [address] [place], [place] [address]Xfatjehkvaj peptide B [Mass/Vol]on 84-76-3207Isktmvgmvvu peptide B (Bld) [Mass/Vol]1320 pg/mLHigh<100.0ProMedica Newburyport HospitalComment on above:Performed By: #### WILLIAM, 43048-3, PINR, 59496-0, 65442-8, 13577-7, 26607- 4, THYR, 76455-3, CMP, 47121-7, 2157-6 #### [facility] ([id number]) [facility] [place] [address] #### HA1C #### [facility] ([id number]) [address] [facility], [address] [place], [place] [address]BNPSKNO AND INRon 58-73-9947DBC Coag (PPP) [Relative time]1.2 {INR}High0.8-1.1POhioHealth Nelsonville Health CenterComment on above:Performed By: #### CBCA, 48366-7, PINR, 21880-2, 06800-8, 73841-9, 14966-5, THYR, 17031-7, CMP, 21286-2, 2157-6 #### [facility] ([id number]) [address] [place] [address] #### HA1C #### [facility] ([id number]) [address] [facility], [address] [place], [place] [address]YI Coag (PPP) [Time]14.4 sHigh9.8-13.2POhioHealth [facility]ville Health Center Comment on above:Performed By: #### CBCA, 65614-2, PINR, 54519-9, 94434-0, 71562-4, 35728-9, THYR, 57550-2, CMP, 28842-0, 2157-6 #### [facility] ([id number]) [address] [place] [address] #### HA1C #### [facility] ([id number]) [address] [facility], [address] [place], [place] [address]Qbiyqtyaowwqi [place] [Mass/Vol]on 83-52-8699AYWIQQDFZPUMT5.06 ng/mL High<0.05ProAdena Regional Medical CenterComment on above:Result Comment: NOTE <0.50 ng/mL - Low risk of severe sepsis and/or septic shock. <2.00 ng/mL - Recommend retesting within 6-24 hours. >2.00 ng/mL - High risk of sepsis and/or septic shock.Performed By: #### CBCA, 52082-5, PINR, 09667-5, 51576-9, 48954-4, 00066-3, THYR, 52231-8, CMP, 34101-1, 2157-6 #### [facility] ([id number]) [address] [place] [address] #### HA1C #### [facility] ([id number]) [address] [place] [address], [address] [place], [place] [address]NISM PATHOGENS/LVXK-VwP-2nw 23-55-6862Iawrocwlbtf pathogens DNA and RNA panel ANASTASIA+non-probe (Nph)SPECIMEN SOURCE NASO PHARYNX ADENOVIRUS Not detected (qualifier [...] 2 Not detected (qualifier value) NOTE The [employer] Respiratory Panel 2.1 (RP2.1) is a multiplexed [...] other pathogens. The agent(s) detected by the Screamin Daily DealsFire RP2.1 may not be the definite cause [...] evaluating a patient with possible respiratory tract infection.NormalProAdena Regional Medical CenterComment on above:Performed By: #### CBCA, 07912-5, PINR, 08256-7, 99206- 7, 35097-7, 39496-1, THYR, 36164-6, CMP, 59305-3, 2157-6 #### [facility] ([id number]) [address] [place] [address] #### HA1C #### [facility] ([id number]) [address] [place] [address], [address] [place], [place] [address]OECERNW PROFILEon 56-61-8301Luwv T4 [Mass/Vol]1.04 ng/dLNormal 0.61-1.60ProAdena Regional Medical CenterComment on above:Performed By: #### CBCA, 35555-7, PINR, 90462-9, 89197-4, 28167-2, 75229-4, THYR, 86181-8, CMP, 47579-2, 2157-6 #### [facility] ([id number]) [address] [place] [address] #### HA1C #### [facility] ([id number]) [address] [facility], [address] [place], [place] [address]HYP2.70 uIU/mLNormal0.49-4.67ProAdena Regional Medical CenterComment on above:Performed By: #### WILLIAM, 17672-4, PINR, 86230-2, 31762-1, 52560-5, 46324- 4, THYR, 23995-2, CMP, 25167-7, 2157-6 #### [facility] ([id number]) [address] [place] [address] #### HA1C #### [facility] ([id number]) [address] [facility], [address] [place], [place] [address]Ubagrgvj I.cardiac High sensitivity method [Mass/Vol]on 04-78-1340XBUAMFUD I, HIGH EZAXTYNGVLZ911 ng/LHigh<21ProAdena [facility] Center Comment on above:Result Comment: Elevations of hs-Troponin may be due to causes other than myocardial ischemia. Recommend serial hs-Troponin testing be performed. For the initial evaluation and management of chest pain patients, refer to the algorithms linked below. Emergency Patient: [email or web address] Inpatient: [email or web address] By: #### CBCA, 15007-9, PINR, 84210-0, 75334-3, 90620-0, 49892-7, THYR, 86723- 1, CMP, 68794-0, 2157-6 #### [facility] ([id number]) [address] [place] [address] #### HA1C #### [facility] ([id number]) [address] [address], [address] [place], [place] [address] HOUR TROP I, HIGH [id number] ng/LHigh<21ProAdena Regional Medical CenterComment on above:Result Comment: Elevations of hs-Troponin may be due to causes other than myocardial ischemia. Recommend serial hs-Troponin testing be performed. For the initial evaluation and management of chest pain patients, refer to the algorithms linked below. Emergency Patient: [email or web address] Inpatient: [email or web address] By: #### CBCA, 28478-0, PINR, 88803-3, 87445-2, 28623-2, 81780-8, THYR, 31659- 1, CMP, 84488-0, 2157-6 #### [facility] ([id number]) [address] [place] [address] #### HA1C #### [facility] ([id number]) [address] [facility], [address] [place] [id number] CHEST 1 VWon 21-86-4348KF CHEST 1 VWXR CHEST 1 VW History: Congestion EXAM: Chest AP portable upright COMPARISON: None FINDINGS: Cardiac silhouette within normal limits. Mild interstitial prominence. No pneumothorax. No infiltrate or large pleural effusion. IMPRESSION: Mild interstitial edema Finalized by Mima Eaton MD on 01/21/2024 1:38 PMNormalProAdena Regional Medical CenteraPTT Coag (PPP) [Time]on 43-69-5658dYXD Coag (Bld) [Time]54 lYrgn94-17 [facility] HospitalComment on above:Performed By: #### CBCA, 62080-6, PINR, 59844-7, 94229-1, 15061-1, 34712-1, THYR, 92062-5, CMP, 88973-8, 2157-6 #### [facility] ([id number]) [address] [place] [address] #### HA1C #### [facility] ([id number]) [address] [place] [address], [address] [place], [place] [address]NX Cervical spine WO contraston 61-48-1500[place] [address] Magnetic Resonance Report Signed Patient: MANOLO ROCHE MR#: [id number] : 1935 Acct:[id number] Age/Sex: 88 / M ADM Date: 12/27/23 Loc: MRI Attending Dr: Non-Staff Physician Mikel Ordering Physician: Jones MortonStaff Mikel Date of Service: 12/27/23 Procedure(s): MR cervical spine wo con Accession Number(s): [id number] cc: Physician,Non-Staff Mikel; MARIE TEJEDA [place] [address] Patient Name: MANOLO ROCHE MRN: [id number] date: 1935 Sex: M Assigned Patient Location: MRI Current Patient Location: Accession/Order Number: [id number] Exam Date: 12/27/2023 09:55 Report Date: 12/28/2023 [...] canal narrowing C5-6, C6-7. Electronically authenticated by: MIMA GUZMAN Date: 12/28/2023 09:34 Dictated By: Mima Guzman M.D. Signed By: 12/28/2336 DD/ TD/TT: Lead Mechanical Engineer:TBHRadiology, Radiologist, MD - 12/28/2023 [place] [address] Magnetic Resonance Report Signed Patient: MANOLO ROCHE MR#: [id number] : 1935 Acct:[id number] Age/Sex: 88 / M ADM Date: 12/27/23 Loc: MRI Attending Dr: Non-Staff Physician Morin Ordering Physician: Maci Morton M.D. Date of Service: 12/27/23 Procedure(s): MR cervical spine wo con Accession Number(s): [id number] cc: Physician,Non-Staff MBrandon; MARIE TEJEDA [place] [address] Patient Name: MANOLO ROCHE MRN: [id number] date: 1935 Sex: M Assigned Patient Location: MRI Current Patient Location: Accession/Order Number: [id number] Exam Date: 12/27/2023 09:55 Report Date: 12/28/2023 [...] canal narrowing C5-6, C6-7. Electronically authenticated by: MIMA GUZMAN Date: 12/28/2023 09:34 Dictated By: Mima Guzman M.D. Signed By: 12/28/23935 DD/ 3 TD/TT: Lead Mechanical Engineer: NETO [facility] CenterRadiology Study observation (narrative)[facility] Cervical spine WO contrastOrdered By: Radiologist Radiology on 71-58-8990YGMYPike [facility] Memorial Hospital Work Phone: Glucose Glucometer (BldC) [Mass/Vol]Ordered By: Alberto Shearer on 91-49-8018Sdkkmbg [Mass/Vol]83 mg/dLAdena Pike Medical Center Comment on above:Random Glucose Reference Range is dependent on time and content of last meal. Glucose of more than 200 mg/dL in a nonstressed, ambulatory subject supports the diagnosis of Diabetes Mellitus.No Panel InformationOrdered By: Alberto Shearer on 28-04-3303Hywynnq Glucose CommentGlu2: cleaned [facility] HospitalBedside Glucose #2 CommentCleaned [facility] HospitalGlucose Glucometer (BldC) [Mass/Vol]Ordered By: Yomi Meeks on 78-56-0460Ydrqcbg [Mass/Vol]71 mg/dLAdena Pike Medical CenterComment on above:Random Glucose Reference Range is dependent on time and content of last meal. Glucose of more than 200 mg/dL in a nonstressed, ambulatory subject supports the diagnosis of Diabetes Mellitus.Glucose Glucometer (BldC) [Mass/Vol]Ordered By: Vidya Robert on 79-23-5121Ynspgep [Mass/Vol]268 mg/dLAdena Pike Medical CenterComment on above:Random Glucose Reference Range is dependent on time and content of last meal. Glucose of more than 200 mg/dL in a nonstressed, ambulatory subject supports the diagnosis of Diabetes Mellitus.No Panel InformationOrdered By: Vidya Robert on 90-01-7149Sktarwh Glucose CommentGlu2: cleaned [facility] HospitalErythrocyte distribution width Auto (RBC) [Ratio]Ordered By: [employer] on 75-85-1287Gcuzoheeoey distribution width (RBC) [Ratio]16.7 %12.0-14.8 [facility] Medical CenterHematocrit Auto (Bld) [Volume fraction]Ordered By: [employer] on 98-99-4480Guvcwmykpp (Bld) [Volume fraction]22.7 % 38.8-50.0[facility] Medical CenterHemoglobin [Mass/volume] in Blood Ordered By: [employer] on 10-61-0358Vvyzqzttib (Bld) [Mass/Vol]7.8 g/dL 13.0-17.0[facility] Medical CenterLeukocytes [#/volume] corrected for nucleated erythrocytes in Blood by Automated counOrdered By: [employer] on 51-83-7100AYN corrected for nucl RBC Auto (Bld) [#/Vol]9.4 10*3/uL4.1-10.5 [facility] CenterMCH Auto (RBC) [Entitic mass]Ordered By: [employer] on 53-51-5165QSW (RBC) [Entitic mass]28.7 pg27.5-35.2FAccess Hospital DaytonMCHC Auto (RBC) [Mass/Vol]Ordered By: Audi Gaming on 09-05-2023 MCHC (RBC) [Mass/Vol]34.1 g/dL32.5-35.6FAccess Hospital DaytonMCV Auto (RBC) [Entitic vol]Ordered By: [employer] on 38-35-0015KQA (RBC) [Entitic vol]84.1 fL83.5-101A[facility] Medical CenterPlatelet mean volume Auto (Bld) [Entitic vol]Ordered By: [employer] on 79-46-9859Butvnczf mean volume (Bld) [Entitic vol]9.8 fL6.6-10.1FAccess Hospital DaytonPlatelets Auto (Bld) [#/Vol]Ordered By: [employer] on 07-25-0059Katkrpmja (Bld) [#/Vol]236 10*3/zN580-386EfidvfxqpAdena Pike Medical CenterRBC Auto (Bld) [#/Vol]Ordered By: [employer] on 45-61-9985VGM (Bld) [#/Vol]2.70 10*6/uL3.90-5.60[facility] CenterBasophils Auto (Bld) [#/Vol]Ordered By: Jeevan Pinzon on 46-98-7444Jhqhcoirl (Bld) [#/Vol]0.0 10*3/uL0.0-0.2FAccess Hospital DaytonBasophils/100 WBC Auto (Bld)Ordered By: Jeevan Pinzon on 09-04-2023 Basophils/100 WBC (Bld)0.4 %.[facility] Medical CenterEosinophils Auto (Bld) [#/Vol]Ordered By: Jeevan Pinzon on 47-60-5176Dfarauvrccs (Bld) [#/Vol]0.1 10*3/uL0.0-0.45[facility] CenterEosinophils/100 WBC Auto (Bld) Ordered By: Jeevan Pinzon on 71-04-4231Rlmducfhgcv/100 WBC (Bld)0.8 %.[facility] CenterLymphocytes Auto (Bld) [#/Vol]Ordered By: Jeevan Pinzon on 47-91-9251Jrufqdwtjpz (Bld) [#/Vol]1.3 10*3/uL1.00-4.8[facility] CenterLymphocytes/100 WBC Auto (Bld)Ordered By: Jeevan Pinzon on 93-40-1660Rcxgflgreec/100 WBC (Bld)11.7 %.[facility] Monocytes Auto (Bld) [#/Vol]Ordered By: Jeevan Pinzon on 05-80-4237Zeqycnvww (Bld) [#/Vol]1.9 10*3/uL0.0-0.8[facility] CenterMonocytes/100 WBC Auto (Bld)Ordered By: Jeevan Pinzon on 53-42-4467Vexnhspiq/100 WBC (Bld)17.9 %.[facility] Medical CenterComment on above:Absolute monocytosis is commonly reactive in nature. However, if unexplained, recommend follow-up CBC in 3 months to evaluate for persistence.Neutrophils Auto (Bld) [#/Vol]Ordered By: Jeevan Pinzon on 96-93-6274Tbhfkwszsau (Bld) [#/Vol]7.4 10*3/uL1.8-7.7FAccess Hospital DaytonNeutrophils/100 WBC Auto (Bld)Ordered By: Jeevan Pinzon on 27-09-1128Sjuqakizabx/100 WBC (Bld)69.2 %.[facility] Nucleated erythrocytes [Presence] in Blood by Automated countOrdered By: Jeevan Pinzon on 03-34-6555Retcdiudt RBC Auto Ql (Bld)0.2 /100{WBC}0-0.5FAccess Hospital DaytonWBC Auto (Bld) [#/Vol]Ordered By: Jeevan Pinzon on 07-92-6197HFI (Bld) [#/Vol]10.7 10*3/uL4.1-10.5FAccess Hospital Dayton No Panel InformationOrdered By: [employer] on 97-24-1374Uyrgwtt Glucose #2 CommentWill repeat testAdena Pike Medical CenterAcanthocytes [Presence] in Blood by Light microscopyOrdered By: [employer] on 02-82-5656Voszufaudyft LM Ql (Bld)[facility] HospitalAnisocytosis LM Ql (Bld) Ordered By: [employer] Gaming on 39-40-8065Fcaagbqfjzrz Ql (Bld)[facility] HospitalBand form neutrophils/100 WBC Manual cnt (Bld)Ordered By: [employer] on 71-83-7216Oqoc form neutrophils/100 WBC (Bld)4 %0-5FAccess Hospital DaytonBurr cells [Presence] in Blood by Light microscopyOrdered By: Audi Gaming on 85-71-1338Avjy cells LM Ql (Bld)[facility] HospitalCalcium [Mass/volume] in Serum or PlasmaOrdered By: [employer] Gaming on 98-34-6646Qylioon [Mass/Vol]7.7 mg/dL8.6-10.3FAccess Hospital DaytonCarbon dioxide, total [Moles/volume] in Serum or PlasmaOrdered By: [employer] on 05-98-8685IV1 [Moles/Vol]27.3 mmol/L21.0-31.0[facility] CenterChloride [Moles/volume] in Serum or PlasmaOrdered By: [employer] on 41-00-2156Kanlaxkc [Moles/Vol]106 mmol/G42-118BmhqenakvAdena Pike Medical CenterCreatinine [Mass/volume] in Serum or PlasmaOrdered By: [employer] on 71-10-3726Kjoahtdtka [Mass/Vol]0.81 mg/dL0.70-1.30[facility] CenterGlucose [Mass/volume] in Serum or PlasmaOrdered By: [employer] on 11-92-7006Dgtvwtm [Mass/Vol]79 mg/vK83-206QhtaidpwuAdena Pike Medical Center Comment on above:ADA recommended reference rangeRandom Glucose Reference Range is dependent on time and content of last meal. Glucose of more than 200 mg/dL in a nonstressed, ambulatory subject supports the diagnosisof Diabetes Mellitus. Hypochromia LM Ql (Bld)Ordered By: [employer] on 54-42-3836Fzygdkysxre Ql (Bld)[facility] HospitalLymphocytes/100 WBC Manual cnt (Bld)Ordered By: [employer] on 91-35-9825Nqmacgremjx/100 WBC (Bld)9 %18-42 [facility] CenterMicrocytes LM Ql (Bld)Ordered By: [employer] Gaming on 88-58-2068Tzhmgebhoc Ql (Bld)[facility] HospitalMonocytes/100 WBC Manual cnt (Bld)Ordered By: [employer] on 09-01-2023 Monocytes/100 WBC (Bld)7 %2-11[facility] CenterNo Panel InformationOrdered By: Audi Gaming on 01-71-0924Onifyopiy GFR (CKD-EPI)> 60.0 mL/MinAdena Pike Medical CenterPharmacy Creatinine Clearance (Chem59.91 [facility] CenterOvalocyte detectionOrdered By: [employer] Gaming on 52-03-0796Bmxhoqdzkb LM Ql (Bld)[facility] Platelet adequacy [Presence] in Blood by Light microscopyOrdered By: [employer] on 53-43-0810Knklcgpdv LM Ql (Bld)DecreasedNormalAdena Pike Medical CenterPlatelet morphology finding [Identifier] in BloodOrdered By: Audi Gaming on 33-08-1423Cxllnlsv morphology finding Nom (Bld)N/[facility] HospitalPlatelets Large [Presence] in Blood by Light microscopy Ordered By: [employer] on 82-60-1772Ujvtkiavi Large LM Ql (Bld)[facility] HospitalPoikilocytosis [Presence] in Blood by Light microscopyOrdered By: [employer] Gaming on 72-43-2915Ewcxtbdzxtkgnz LM Ql (Bld) [facility] HospitalPolychromasia [Presence] in Blood by Light microscopyOrdered By: Audi Gaming on 95-31-1195Hoqocoqtiinue LM Ql (Bld)[facility] HospitalPotassium [Moles/volume] in Serum or PlasmaOrdered By: [employer] on 86-14-6919Utuogrxmd [Moles/Vol]3.9 mmol/L 3.5-5.1FAccess Hospital DaytonRBC morphologyOrdered By: Audi Gaming on 56-75-1741EIS morphology finding Nom (Bld)N/[facility] Hospitalchistocytes [Presence] in Blood by Light microscopyOrdered By: Audi Gaming on 57-44-4794Ziznpianoguu LM Ql (Bld)[facility] Limaegmented neutrophils/100 WBC Manual cnt (Bld)Ordered By: Audi Gaming on 09-01-5773Acrpevnth neutrophils/100 WBC (Bld)81 %50-70[facility] Healtherum or plasma anion gap determinationOrdered By: Audi Gaming on 18-69-8605Qwonv gap [Moles/Vol]10.6 mmol/L6.0-15.0[facility]ison Healthodium [Moles/volume] in Serum or PlasmaOrdered By: Audi Gaming on 83-89-8995Rkvwku [Moles/Vol]140 mmol/T685-544EkjhoztwzAdena Pike Medical Center Target cellsOrdered By: Audi Gaming on 96-45-8857Iezyih cells LM Ql (Bld) [facility] HospitalTroponin I.cardiac [Mass/volume] in Serum or Plasma by Detection limit <= 0.01 ng/Ordered By: Audi Gaming on 89-97-9856Fxmgndyi I.cardiac DL <= 0.01 ng/mL [Mass/Vol]779.8 pg/mL0.0-20.0 [facility] CenterComment on above:Critical Result : Called to and read back by: EDNA MORALES at: 09/01/2023 06:23:23 by:RGUrea nitrogen [Mass/volume] in Serum or PlasmaOrdered By: Audi Gaming on 09-89-1490Tbgz nitrogen [Mass/Vol]37 mg/dL7-25[facility] CenterActivated partial thromboplastin time (aPTT) in platelet poor plasma by coagulation a Ordered By: Federico Davis on 11-89-8225cVWD Coag (PPP) [Time]30.2 s25.1-36.5 [facility] CenterComment on above:A hematocrit value greater than 55% may lead to inaccurate results in coagulation testing. Patientshaving hematocrit values >55% require a special collection tube for coagulation studies. Please contact the laboratory at [phone] for redraw instructions. Anisocytosis LM Ql (Bld)Ordered By: Federico Davis on 69-02-8681Gztcjtlkqccs Ql (Bld) [facility] HospitalBasophils Auto (Bld) [#/Vol]Ordered By: Federico Davis on 26-59-8258Vrwczoihm (Bld) [#/Vol]0.0 10*3/uL0.0-0.2FAccess Hospital DaytonBasophils/100 WBC Auto (Bld)Ordered By: Federico Davis on 36-31-5524Brzkqktdv/100 WBC (Bld)0.5 %.[facility] CenterCarbon dioxide, total [Moles/volume] in Serum or PlasmaOrdered By: Federico Davis on 58-47-3360PE1 [Moles/Vol]26.8 mmol/L21.0-31.0[facility] Chloride [Moles/volume] in Serum or PlasmaOrdered By: Federico Davis on 07-16-2023 Chloride [Moles/Vol]103 mmol/W23-232FkfzvmcwgAdena Pike Medical CenterCreatinine [Mass/volume] in Serum or PlasmaOrdered By: Federico Davis on 21-58-2616Sfpuasxdrx [Mass/Vol]0.71 mg/dL0.70-1.30[facility] CenterEosinophils Auto (Bld) [#/Vol]Ordered By: Federico Davis on 33-98-4532Tywjhmolmgd (Bld) [#/Vol]0.0 10*3/uL0.0-0.45[facility] CenterEosinophils/100 WBC Auto (Bld) Ordered By: Federico Davis on 05-11-9333Njjnskvckii/100 WBC (Bld)0.3 %.[facility] CenterErythrocyte distribution width Auto (RBC) [Ratio]Ordered By: Federico Davis on 63-87-1645Avwadomttsq distribution width (RBC) [Ratio]16.5 % 12.0-14.8[facility] CenterGlucose Glucometer (BldC) [Mass/Vol] Ordered By: Federico Davis on 28-78-5878Ezmspgd [Mass/Vol]398 mg/dLAdena Pike Medical CenterComment on above:Random Glucose Reference Range is dependent on time and content of last meal. Glucose of more than 200 mg/dL in a nonstressed, ambulatory subject supports the diagnosis of Diabetes Mellitus.Hematocrit Auto (Bld) [Volume fraction]Ordered By: Federico Davis on 35-38-3851Uqlrimsgiy (Bld) [Volume fraction]33.5 %38.8-50.0[facility] CenterHemoglobin [Mass/volume] in BloodOrdered By: Federico Davis on 47-04-3738Jqsooriscj (Bld) [Mass/Vol]11.0 g/dL13.0-17.0[facility] CenterHypochromia LM Ql (Bld)Ordered By: Federico Davis on 62-21-3274Zqhspcweyxa Ql (Bld)MarkedAdena Pike Medical CenterINR in Platelet poor plasma by Coagulation assayOrdered By: Federico Davis on 89-98-1405GBO Coag (PPP) [Relative time]1.1 {INR}[facility] Medical CenterComment on above:INR Therapeutic Range A) Pre- and Peroperative OAT started two weeks before surgery. NOT HIP SURGERY: 1.5 - 2.5 HIP SURGERY: 2 - 3B) Primary and secondary prevention of venous THROMBOSIS: 2 - 3C) Active venous thrombosis, pulmonary embolismand prevention of recurrent venous thrombosis: 2 - 3D) Prevention of arterial thromboembolismincluding patients with mechanical heart valves: 3 - 4.5Leukocytes [#/volume] corrected for nucleated erythrocytes in Blood by Automated counOrdered By: Federico Davis on 07-09-2100PBF corrected for nucl RBC Auto (Bld) [#/Vol]8.4 10*3/uL4.1-10.5 [facility] CenterLymphocytes Auto (Bld) [#/Vol]Ordered By: Federico Davis on 62-72-0410Mibvpksjnzt (Bld) [#/Vol]0.7 10*3/uL1.00-4.8[facility] CenterLymphocytes/100 WBC Auto (Bld)Ordered By: Federico Davis on 29-86-7731Ecinxyvwurf/100 WBC (Bld)8.4 %.[facility] Auto (RBC) [Entitic mass]Ordered By: Federico Davis on 45-57-6476ZZW (RBC) [Entitic mass]26.4 pg27.5-35.2FAccess Hospital DaytonMCHC Auto (RBC) [Mass/Vol] Ordered By: Federico Davis on 59-06-6005TLAS (RBC) [Mass/Vol]32.8 g/dL32.5-35.6 [facility] CenterMCV Auto (RBC) [Entitic vol]Ordered By: Federico Davis on 40-49-7561EVE (RBC) [Entitic vol]80.4 fL83.5-101[facility] CenterMacrocytes LM Ql (Bld)Ordered By: Federico Davis on 07-16-2023 Macrocytes Ql (Bld)SlightAdena Pike Medical CenterMonocytes Auto (Bld) [#/Vol]Ordered By: Federico Davis on 29-61-5919Wamxohbwe (Bld) [#/Vol]1.3 10*3/uL 0.0-0.8[facility] CenterMonocytes/100 WBC Auto (Bld)Ordered By: Federico Davis on 74-28-4865Gttvtxciq/100 WBC (Bld)15.1 %.[facility] Medical CenterNeutrophils Auto (Bld) [#/Vol]Ordered By: Federico Davis on 07-16-2023 Neutrophils (Bld) [#/Vol]6.3 10*3/uL1.8-7.7FAccess Hospital Dayton Neutrophils/100 WBC Auto (Bld)Ordered By: Federico Davis on 32-37-5285Vobcvegugwm/100 WBC (Bld)75.7 %.[facility] CenterNo Panel InformationOrdered By: Federico Davis on 08-13-9473Juiwfxk Glucose CommentGlu2: cleaned meterAdena Pike Medical CenterEstimated GFR (CKD-EPI)> 60.0 mL/MinAdena Pike Medical CenterPharmacy Creatinine Clearance (ChemN/AFAccess Hospital DaytonNucleated erythrocytes [Presence] in Blood by Automated countOrdered By: Federico Davis on 60-95-7990Axbasaxzl RBC Auto Ql (Bld)0.1 /100{WBC}0-0.5FAccess Hospital DaytonPlatelet adequacy [Presence] in Blood by Light microscopy Ordered By: Federico Davis on 68-85-8646Hdrpsngfk LM Ql (Bld)NormalNormalAdena Pike Medical CenterPlatelet mean volume Auto (Bld) [Entitic vol]Ordered By: Federico Davis on 16-57-8945Hrlklqdi mean volume (Bld) [Entitic vol]10.1 fL6.6-10.1 [facility] CenterPlatelet morphology finding [Identifier] in BloodOrdered By: Federico Davis on 35-65-7373Anmksetv morphology finding Nom (Bld)N/A [facility] CenterPlatelets Auto (Bld) [#/Vol]Ordered By: Federico Davis on 14-56-4441Dymeyitxv (Bld) [#/Vol]243 10*3/xM599-731XbdxozdaiAdena Pike Medical CenterPlatelets Large [Presence] in Blood by Light microscopyOrdered By: Federico Davis on 37-37-6904Qrpiewzow Large LM Ql (Bld)SlightAdena Pike Medical CenterPoikilocytosis [Presence] in Blood by Light microscopyOrdered By: Federico Davis on 08-04-9826Zvcqfsvftfqmds LM Ql (Bld)[facility] HospitalPolychromasia [Presence] in Blood by Light microscopyOrdered By: Federico Davis on 15-11-1491Ururtevnemuov LM Ql (Bld)[facility] HospitalPotassium [Moles/volume] in Serum or PlasmaOrdered By: Federico Davis on 18-79-7371Pvezffjxz [Moles/Vol]4.2 mmol/L3.5-5.1FAccess Hospital DaytonProthrombin time (PT)Ordered By: Federico Davis on 24-90-0630VN Coag (PPP) [Time]12.3 s9.0-12.9[facility] Medical CenterComment on above:A hematocrit value greater than 55% may lead to inaccurate results in coagulation testing. Patientshaving hematocrit values >55% require a special collection tube for coagulation studies. Please contact the laboratory at [phone] for redraw instructions.RBC Auto (Bld) [#/Vol]Ordered By: Federico Davis on 33-69-5025NWH (Bld) [#/Vol]4.17 10*6/uL3.90-5.60[facility] CenterRBC morphologyOrdered By: Federico Davis on 13-97-9837RRU morphology finding Nom (Bld)N/A [facility] Healthchistocytes [Presence] in Blood by Light microscopyOrdered By: Federico Davis on 13-63-0287Xsuqdpfftcvv LM Ql (Bld)Slight [facility] Healtherum or plasma anion gap determinationOrdered By: Federico Davis on 18-13-3539Sfbqn gap [Moles/Vol]12.4 mmol/L6.0-15.0[facility] Healthodium [Moles/volume] in Serum or PlasmaOrdered By: Federico Davis on 26-33-2643Rkmwya [Moles/Vol]138 mmol/I294-860GjayednllAdena Pike Medical CenterTarget cellsOrdered By: Federico Davis on 74-22-0563Seprpj cells LM Ql (Bld)ModerateAdena Pike Medical CenterUrea nitrogen [Mass/volume] in Serum or PlasmaOrdered By: Federico Davis on 41-55-8417Zzda nitrogen [Mass/Vol]16 mg/dL7-25[facility] CenterWBC Auto (Bld) [#/Vol]Ordered By: Federico Davis on 63-27-7391TFA (Bld) [#/Vol]8.4 10*3/uL4.1-10.5FAccess Hospital DaytonProgress Noteson 42-37-7067Ebrponwgytjpw Authentication Interface Message TextEMERGENCY TRIAGE, TREAT AND TRANSPORT (ET3) DOCUMENTATION OF TELEHEALTH VISIT Date / Time: 06/02/2023929 Name: Giovani Roche : 1935 SSN: (Not on file) EMS Agency: [facility] [x] Verbal consent obtained [] [...] Disposition Reported: Same ET3 Encounter Completed by: David FrederickTri[facility] SystemEC [address] [place] 98-10-7544Wqbckh sinus rhythm, anterolateral ST T wave abnormality, abnormal ECGCPACSMetroHealth Parma Medical Center Work Phone: Glucose Glucometer (BldC) [Mass/Vol]Ordered By: Fredi Medrano on 39-82-8927Lzllclk [Mass/Vol]98 mg/dLAdena Pike Medical CenterComment on above:Random Glucose Reference Range is dependent on time and content of last meal. Glucose of more than 200 mg/dL in a nonstressed, ambulatory subject supports the diagnosis of Diabetes Mellitus.No Panel InformationOrdered By: Fredi Medrano on 65-53-4870Cljhmoh Glucose Comment Glu2: cleaned meterAdena Pike Medical CenterAlanine aminotransferase [Enzymatic activity/volume] in Serum or PlasmaOrdered By: Fredi Medrano on 73-87-1646XPC [Catalytic activity/Vol]14 U/L7-52[facility] CenterAlbumin [Mass/volume] in Serum or Plasma by Bromocresol green (BCG) dye binding methoOrdered By: Fredi Medrano on 57-32-1659Tlxpscw BCG dye [Mass/Vol]2.9 g/dL3.5-5.7FAccess Hospital DaytonAlkaline phosphatase [Enzymatic activity/volume] in Serum or PlasmaOrdered By: Fredi Medrano on 66-88-4582UBV [Catalytic activity/Vol]87 U/G47-266SdoubaugkAdena Pike Medical CenterAspartate aminotransferase [Enzymatic activity/volume] in Serum or Plasma Ordered By: Fredi Medrano on 84-13-8681VCY [Catalytic activity/Vol]20 U/L 13-39[facility] CenterBasophils Auto (Bld) [#/Vol]Ordered By: Fredi Medrano on 46-26-2347Yptgzrcow (Bld) [#/Vol]0.0 10*3/uL0.0-0.2 [facility] CenterBasophils/100 WBC Auto (Bld)Ordered By: Fredi Medrano on 10-74-0749Hvuntbmmw/100 WBC (Bld)0.7 %.[facility] CenterBilirubin.total [Mass/volume] in Serum or PlasmaOrdered By: Fredi Medrano on 77-56-6774Fhuknjegp [Mass/Vol]0.5 mg/dL0.3-1.0 [facility] CenterCalcium [Mass/volume] in Serum or PlasmaOrdered By: Fredi Medrano on 85-47-5314Mpetydl [Mass/Vol]8.0 mg/dL8.6-10.3 [facility] CenterCarbon dioxide, total [Moles/volume] in Serum or PlasmaOrdered By: Fredi Medrano on 77-17-8399ZR7 [Moles/Vol]28.0 mmol/L21.0-31.0[facility] CenterChloride [Moles/volume] in Serum or PlasmaOrdered By: Fredi Medrano on 60-90-1361Rbuwdabt [Moles/Vol]102 mmol/K66-184KbojpzdldAdena Pike Medical CenterCreatinine [Mass/volume] in Serum or PlasmaOrdered By: Fredi Medrano on 06-93-3782Flqttlcwpq [Mass/Vol]0.61 mg/dL0.70-1.30[facility] CenterEosinophils Auto (Bld) [#/Vol] Ordered By: Fredi Medrano on 23-09-3507Ewhcsnlmiyg (Bld) [#/Vol]0.1 10*3/uL0.0-0.45[facility] CenterEosinophils/100 WBC Auto (Bld) Ordered By: Fredi Medrano on 51-15-9792Nxwkymkqjry/100 WBC (Bld)1.5 %. [facility] CenterErythrocyte distribution width Auto (RBC) [Ratio]Ordered By: Fredi Medrano on 95-17-9259Tuoayzdapiy distribution width (RBC) [Ratio]16.8 %12.0-14.8[facility] CenterGlobulin Calc (S) [Mass/Vol]Ordered By: Fredi Medrano on 35-36-4814Rmaejkva (S) [Mass/Vol]2.5 g/dLAdena Pike Medical CenterGlucose [Mass/volume] in Serum or PlasmaOrdered By: Fredi Medrano on 42-44-8085Qlwcunr [Mass/Vol] 120 mg/cG91-578UouqxxnukAdena Pike Medical CenterComment on above:ADA recommended reference rangeRandom Glucose Reference Range is dependent on time and content of last meal. Glucose of more than 200 mg/dL in a nonstressed, ambulatory subject supports the diagnosisof Diabetes Mellitus.Hematocrit Auto (Bld) [Volume fraction]Ordered By: Fredi Medrano on 21-91-6862Uzxvzrkpob (Bld) [Volume fraction]29.3 %38.8-50.0[facility] CenterHemoglobin [Mass/volume] in BloodOrdered By: Fredi Medrano on 52-37-8310Kfxizroxma (Bld) [Mass/Vol]9.7 g/dL13.0-17.0[facility] CenterLeukocytes [#/volume] corrected for nucleated erythrocytes in Blood by Automated coun Ordered By: Fredi Medrano on 00-45-4723EJW corrected for nucl RBC Auto (Bld) [#/Vol]7.2 10*3/uL4.1-10.5[facility] CenterLymphocytes Auto (Bld) [#/Vol]Ordered By: Fredi Medrano on 62-70-7049Rrqzooqadlq (Bld) [#/Vol]1.6 10*3/uL1.00-4.8[facility] CenterLymphocytes/100 WBC Auto (Bld)Ordered By: Fredi Medrano on 46-29-4341Knvnecohwzl/100 WBC (Bld)23.0 %.[facility] MemorialH Auto (RBC) [Entitic mass] Ordered By: Fredi Medrano on 36-09-0257RDE (RBC) [Entitic mass]27.9 pg 27.5-35.2FAccess Hospital DaytonMCHC Auto (RBC) [Mass/Vol]Ordered By: Fredi Medrano on 03-09-6676OFSW (RBC) [Mass/Vol]33.0 g/dL32.5-35.6 [facility] CenterMCV Auto (RBC) [Entitic vol]Ordered By: Fredi Medrano on 56-45-3066KYI (RBC) [Entitic vol]84.6 fL83.5-101 [facility] CenterMonocytes Auto (Bld) [#/Vol]Ordered By: Fredi Medrano on 86-27-6463Jgvvuznwn (Bld) [#/Vol]0.7 10*3/uL0.0-0.8 [facility] CenterMonocytes/100 WBC Auto (Bld)Ordered By: Fredi Medrano on 37-69-1580Byatupgxc/100 WBC (Bld)9.9 %.[facility] Medical CenterNeutrophils Auto (Bld) [#/Vol]Ordered By: Fredi Medrano on 75-90-1030Opwihbyoruf (Bld) [#/Vol]4.6 10*3/uL1.8-7.7FAccess Hospital DaytonNeutrophils/100 WBC Auto (Bld)Ordered By: Fredi Medrano on 58-08-8932Xggcvzteuty/100 WBC (Bld)64.9 %.[facility] CenterNo Panel InformationOrdered By: Fredi Medrano on 05-04-2023 Estimated GFR (CKD-EPI)> 60.0 mL/MinAdena Pike Medical CenterPharmacy Creatinine Clearance (Chem62.25[facility] CenterNucleated erythrocytes [Presence] in Blood by Automated countOrdered By: Fredi Medrano on 04-89-7052Hfkuonlot RBC Auto Ql (Bld)0.2 /100{WBC}0-0.5FAccess Hospital DaytonPlatelet mean volume Auto (Bld) [Entitic vol]Ordered By: Fredi Medrano on 59-25-1372Unbradrn mean volume (Bld) [Entitic vol]8.9 fL 6.6-10.1FAccess Hospital DaytonPlatelets Auto (Bld) [#/Vol]Ordered By: Fredi Medrano on 42-12-4246Xfbbjjjkx (Bld) [#/Vol]218 10*3/tI104-668 [facility] CenterPotassium [Moles/volume] in Serum or Plasma Ordered By: Fredi Medrano on 73-29-8613Miktzfken [Moles/Vol]4.6 mmol/L 3.5-5.1FAccess Hospital DaytonPrealbumin [Mass/volume] in Serum or PlasmaOrdered By: Fredi Medrano on 83-64-9621Amquvvcgjb [Mass/Vol]10.2 mg/dL17.0-34.0[facility] CenterProtein [Mass/volume] in Serum or PlasmaOrdered By: Fredi Medrano on 06-48-6030Egaewln [Mass/Vol]5.4 g/dL 6.4-8.9[facility] Medical CenterRBC Auto (Bld) [#/Vol]Ordered By: Fredi Medrano on 75-67-6697DXC (Bld) [#/Vol]3.46 10*6/uL3.90-5.60 [facility] Healtherum or plasma albumin/globulin mass ratio Ordered By: Fredi Medrano on 33-45-1111Umbkrca/Globulin [Mass ratio]1.2 {ratio}[facility] Healtherum or plasma anion gap determination Ordered By: Fredi Medrano on 21-55-8329Fqwcm gap [Moles/Vol]8.6 mmol/L 6.0-15.0[facility] Healthodium [Moles/volume] in Serum or PlasmaOrdered By: Fredi Medrano on 54-56-1169Kgrrts [Moles/Vol]134 mmol/L 136-145[facility] Medical CenterUrea nitrogen [Mass/volume] in Serum or PlasmaOrdered By: Fredi Medrano on 98-09-2552Puju nitrogen [Mass/Vol]22 mg/dL7-25[facility] CenterWBC Auto (Bld) [#/Vol]Ordered By: Fredi Medrano on 04-17-4882OIO (Bld) [#/Vol]7.2 10*3/uL4.1-10.5FAccess Hospital DaytonCholesterol [Mass/volume] in Serum or PlasmaOrdered By: Anat Perez on 00-76-7173Tdbjsctzmkj [Mass/Vol]98 mg/lX675-833XjlmnhbhzAdena Pike Medical CenterComment on above:Chol less than 200 mg/dl low riskChol 201-239 mg/dl borderline riskChol 240 mg/dl and greater high riskCholesterol in LDL Calc [Mass/Vol]Ordered By: Anat Perez on 56-85-6894Pkpaczcqksf in LDL [Mass/Vol]46 mg/dL0-100A[facility] CenterComment on above:LDL ATP III CLASSIFICATIONLDL less than 100 mg/dL OptimalLDL 100-129 mg/dL Near or above kucekybHHZ524-581 mg/dL Borderline highLDL 160-189 mg/dL HighLDL greater than 189 mg/dL Very highCholesterol in VLDL Calc [Mass/Vol]Ordered By: Anat Perez on 47-33-0076Bdncrcmqpsf in VLDL [Mass/Vol]12 mg/dLAdena Pike Medical CenterGlucose Glucometer (BldC) [Mass/Vol]Ordered By: Humberto Diaz on 33-45-8761Dlgklcp [Mass/Vol]388 mg/dLAdena Pike Medical CenterComment on above:Random Glucose Reference Range is dependent on time and content of last meal. Glucose of more than 200 mg/dL in a nonstressed, ambulatory subject supports the diagnosis of Diabetes Mellitus.Serum or plasma high density lipoprotein (HDL) cholesterol measurementOrdered By: Anat Perez on 05-03-2023 Cholesterol in HDL [Mass/Vol]39 mg/rY84-65LhnxzcghcAdena Pike Medical Center Comment on above:HDL CHOL ATP-III CLASSIFICATION Cardiovascular RiskHDL > or equal to 60 mg/dL LOWHDL < 40 mg/dL HIGHSerum or plasma total cholesterol/high density lipoprotein (HDL) cholesterol mass ratOrdered By: Anat Perez on 01-86-3261Ayofzfbgarr.total/Cholesterol in HDL [Mass ratio]2.5 {ratio}<5.0 [facility] CenterTriglyceride [Mass/volume] in Serum or Plasma Ordered By: Anat Perez on 35-75-6980Scwkllszvykt [Mass/Vol]64 mg/dL0-149 [facility] CenterComment on above:TRIG ATP III CLASSIFICATIONTRIG less than 150 mg/dL NormalTRIG 150-199 mg/dL Borderline highTRIG 200-500 mg/dL High TRIG greater than 500 mg/dL Very highStandard traceable to the Center for Disease Conrtrol and Prevention (CDC) test method. Basophils Auto (Bld) [#/Vol]Ordered By: Sushant Cordon on 05-02-2023 Basophils (Bld) [#/Vol]0.0 10*3/uL0.0-0.2FAccess Hospital Dayton Basophils/100 WBC Auto (Bld)Ordered By: Sushant Cordon on 05-02-2023 Basophils/100 WBC (Bld)0.1 %.[facility] CenterCalcium [Mass/volume] in Serum or PlasmaOrdered By: Sushant Cordon on 05-02-2023 Calcium [Mass/Vol]8.0 mg/dL8.6-10.3FAccess Hospital DaytonCarbon dioxide, total [Moles/volume] in Serum or PlasmaOrdered By: Sushant Cordon on 86-91-8733MK4 [Moles/Vol]30.1 mmol/L21.0-31.0[facility] CenterChloride [Moles/volume] in Serum or PlasmaOrdered By: Sushant Cordon on 26-86-8655Oygjwssv [Moles/Vol]97 mmol/M30-495EozghwuvfAdena Pike Medical CenterCreatinine [Mass/volume] in Serum or PlasmaOrdered By: Sushant Cordon on 18-75-8009Cdtajclmvq [Mass/Vol]0.86 mg/dL0.70-1.30[facility] CenterEosinophils Auto (Bld) [#/Vol]Ordered By: Sushant Cordon on 81-09-0288Ykmebnjwylh (Bld) [#/Vol]0.1 10*3/uL0.0-0.45[facility] CenterEosinophils/100 WBC Auto (Bld)Ordered By: Sushant Cordon on 23-15-2711Gxaurxvizip/100 WBC (Bld)0.8 %.[facility] CenterErythrocyte distribution width Auto (RBC) [Ratio]Ordered By: Sushant Cordon on 45-87-2966Gfrsccdmkhq distribution width (RBC) [Ratio]17.0 % 12.0-14.8[facility] CenterGlucose [Mass/volume] in Serum or PlasmaOrdered By: Sushant Cordon on 67-82-3254Zayhbqm [Mass/Vol]87 mg/dL 70-100[facility] CenterComment on above:ADA recommended reference rangeRandom Glucose Reference Range is dependent on time and content of last meal. Glucose of more than 200 mg/dL in a nonstressed, ambulatory subject supports the diagnosisof Diabetes Mellitus.Hematocrit Auto (Bld) [Volume fraction]Ordered By: Sushant Cordon on 64-87-1623Hkgegfyizs (Bld) [Volume fraction]27.8 %38.8-50.0[facility] CenterHemoglobin [Mass/volume] in BloodOrdered By: Sushant Cordon on 58-22-6845Qxjokeeltt (Bld) [Mass/Vol]9.3 g/dL13.0-17.0[facility] CenterLeukocytes [#/volume] corrected for nucleated erythrocytes in Blood by Automated coun Ordered By: Sushant Cordon on 28-64-7033TER corrected for nucl RBC Auto (Bld) [#/Vol]8.6 10*3/uL4.1-10.5FAccess Hospital DaytonLymphocytes Auto (Bld) [#/Vol]Ordered By: Sushant Cordon on 89-72-2045Dqhhqhyvbqu (Bld) [#/Vol]1.2 10*3/uL1.00-4.8[facility] CenterLymphocytes/100 WBC Auto (Bld)Ordered By: Sushant Cordon on 01-88-0454Carcjdzphdn/100 WBC (Bld)13.7 %.[facility] MemorialH Auto (RBC) [Entitic mass] Ordered By: Sushant Cordon on 03-28-0105KJY (RBC) [Entitic mass]28.3 pg 27.5-35.2FAccess Hospital DaytonMCHC Auto (RBC) [Mass/Vol]Ordered By: Sushant Cordon on 27-12-8239DWHY (RBC) [Mass/Vol]33.6 g/dL32.5-35.6 [facility] CenterMCV Auto (RBC) [Entitic vol]Ordered By: Sushant Cordon on 77-46-8688CXQ (RBC) [Entitic vol]84.2 fL83.5-101 [facility] CenterMonocytes Auto (Bld) [#/Vol]Ordered By: Sushant Cordon on 79-03-5203Zgnuloagl (Bld) [#/Vol]1.2 10*3/uL0.0-0.8 [facility] CenterMonocytes/100 WBC Auto (Bld)Ordered By: Sushant Cordon on 51-95-5870Mfbxfujdy/100 WBC (Bld)13.5 %.[facility] CenterNeutrophils Auto (Bld) [#/Vol]Ordered By: Sushant Cordon on 15-83-1699Zqstbxxudsg (Bld) [#/Vol]6.2 10*3/uL1.8-7.7FAccess Hospital DaytonNeutrophils/100 WBC Auto (Bld)Ordered By: Sushant Cordon on 07-59-6636Nmfsjbpoxph/100 WBC (Bld)71.9 %.[facility] CenterNo Panel InformationOrdered By: Sushant Cordon on 05-02-2023 Bedside Glucose CommentSee commentAdena Pike Medical CenterComment on above:Glu2: WILL NOTIFY DR/RNEstimated GFR (CKD-EPI)> 60.0 mL/MinAdena Pike Medical CenterPharmacy Creatinine Clearance (Chem59.22[facility] CenterNucleated erythrocytes [Presence] in Blood by Automated countOrdered By: Sushant Cordon on 67-80-0932Ulihqccrm RBC Auto Ql (Bld) 0.0 /100{WBC}0-0.5FAccess Hospital DaytonPlatelet mean volume Auto (Bld) [Entitic vol]Ordered By: Sushant Cordon on 23-86-5606Pwhwzqxj mean volume (Bld) [Entitic vol]9.3 fL6.6-10.1FAccess Hospital Dayton Platelets Auto (Bld) [#/Vol]Ordered By: Sushant Cordon on 05-02-2023 Platelets (Bld) [#/Vol]168 10*3/sR180-819QrjrpapoqAdena Pike Medical Center Potassium [Moles/volume] in Serum or PlasmaOrdered By: Sushant Cordon on 39-96-9479Juyehmbgi [Moles/Vol]4.2 mmol/L3.5-5.1FAccess Hospital DaytonRBC Auto (Bld) [#/Vol]Ordered By: Sushant Cordon on 24-41-8394DUY (Bld) [#/Vol]3.29 10*6/uL3.90-5.60[facility] Healtherum or plasma anion gap determinationOrdered By: Sushant Cordon on 05-02-2023 Anion gap [Moles/Vol]8.1 mmol/L6.0-15.0Madison Healthodium [Moles/volume] in Serum or PlasmaOrdered By: Sushant Cordon on 05-02-2023 Sodium [Moles/Vol]131 mmol/L397-436EoyfxzejyAdena Pike Medical CenterUrea nitrogen [Mass/volume] in Serum or PlasmaOrdered By: Sushant Cordon on 74-44-2068Xvkh nitrogen [Mass/Vol]21 mg/dL7-25[facility] WBC Auto (Bld) [#/Vol]Ordered By: Sushant Cordon on 46-68-2652ZKT (Bld) [#/Vol]8.6 10*3/uL4.1-10.5FAccess Hospital DaytonActivated partial thromboplastin time (aPTT) in platelet poor plasma by coagulation aOrdered By: Anat Perez on 60-28-0513dATO Coag (PPP) [Time]30.6 s25.1-36.5FAccess Hospital DaytonComment on above:A hematocrit value greater than 55% may lead to inaccurate results in coagulation testing. Patientshaving hematocrit values >55% require a special collection tube for coagulation studies. Please c ontact the laboratory at [phone] for redraw instructions.INR in Platelet poor plasma by Coagulation assayOrdered By: Anat Perez on 32-15-2193ZLN Coag (PPP) [Relative time]1.3 {INR}[facility] Medical CenterComment on above: INR Therapeutic Range A) Pre- and Peroperative OAT started two weeks before surgery. NOT HIP SURGERY: 1.5 - 2.5 HIP SURGERY: 2 - 3B) Primary and secondary prevention of venous THROMBOSIS: 2 - 3C) Active venous thrombosis, pulmonary embolismand prevention of recurrent venous thrombosis: 2 - 3D) Prevention of arterial thromboembolismincluding patients with mechanical heart valves: 3 - 4.5 Natriuretic peptide B [Mass/Vol]Ordered By: Anat Perez on 04-30-2023 Natriuretic peptide B (Bld) [Mass/Vol]523.0 pg/mL5-100[facility] CenterProthrombin time (PT)Ordered By: Anat Perez on 81-21-4924ZH Coag (PPP) [Time]15.6 s9.0-12.9[facility] Medical CenterComment on above:A hematocrit value greater than 55% may lead to inaccurate results in coagulation testing. Patientshaving hematocrit values >55% require a special collection tube for coagulation studies. Please contact the laboratory at [phone] for redraw instructions.Troponin I.cardiac [Mass/volume] in Serum or Plasma by Detection limit <= 0.01 ng/Ordered By: Anat Perez on 52-78-1372Nxiiduzc I.cardiac DL <= 0.01 ng/mL [Mass/Vol]53.7 pg/mL0.0-20.0[facility] CenterComment on above:Critical Result : Called to and read back by: STEVEN BYRD at: 04/30/2023 19:24:20 by:[id number] [Mass/volume] in Serum or PlasmaOrdered By: Sushant Cordon on 57-01-5139Sjoqdoqr [Mass/Vol]41.5 ng/mL23.9-336.2FAccess Hospital DaytonFolate [Mass/volume] in Serum or PlasmaOrdered By: Sushant Cordon on 12-30-6908Ohbkwb [Mass/Vol]28.0 ng/mL >5.9[facility] Medical CenterComment on above:Folate reference range: >5.9 ng/mlThe WHO technical consultation on folate and vitamin k14qioqaqueelrx has determined that folate concentrations lessthan 4 ng/ml are considered deficient.Iron [Mass/volume] in Serum or PlasmaOrdered By: Sushant Cordon on 95-95-8330Siux [Mass/Vol]45 ug/wD78-495UhchtzhawAdena Pike Medical CenterIron binding capacity [Mass/volume] in Serum or PlasmaOrdered By: Sushant Cordon on 26-52-7857Velh binding capacity [Mass/Vol]330 ug/nE518-688PbqwkiczzAdena Pike Medical CenterIron saturation [Mass Fraction] in Serum or Plasma Ordered By: Sushant Cordon on 99-21-7388Mwiu saturation [Mass fraction] 13.6 %20-50[facility] CenterMagnesium [Mass/volume] in Serum or PlasmaOrdered By: Sushant Cordon on 21-65-3133Volajtebh [Mass/Vol]1.9 mg/dL1.9-2.7FAccess Hospital DaytonNo Panel InformationOrdered By: Sushant Cordon on 48-77-3750Ksesbuv Glucose #2 CommentWill notify /rn [facility] CenterTransferrin [Mass/volume] in Serum or Plasma Ordered By: Sushant Cordon on 38-62-4963Boesvtryncx [Mass/Vol]236 mg/dL 203-362A[facility] Medical CenterVitamin B12 ser/plasOrdered By: Sushant Cordon on 94-13-3554Tbrqmfxik (Vitamin B12) [Mass/Vol]626 pg/mL 180-914[facility] CenterActivated partial thromboplastin time (aPTT) in platelet poor plasma by coagulation aOrdered By: Vinnie Rivas on 50-33-7940rOBO Coag (PPP) [Time]27.8 s25.1-36.5FAccess [facility] Comment on above:A hematocrit value greater than 55% may lead to inaccurate results in coagulation testing. Patientshaving hematocrit values >55% require a special collection tube for coagulation studies. Please contact the laboratory at [phone] for redraw instructions.Alanine aminotransferase [Enzymatic activity/volume] in Serum or PlasmaOrdered By: Vinnie Rivas on 61-75-9672FIJ [Catalytic activity/Vol]34 U/L7-52[facility] CenterAlbumin [Mass/volume] in Serum or Plasma by Bromocresol green (BCG) dye binding metho Ordered By: Vinnie Rivas on 95-01-1471Uihvmzi BCG dye [Mass/Vol]4.0 g/dL3.5-5.7 [facility] CenterAlkaline phosphatase [Enzymatic activity/volume] in Serum or PlasmaOrdered By: Vinnie Rivas on 46-54-0638DDS [Catalytic activity/Vol]108 U/C34-574DudcsxfilAdena Pike Medical CenterAspartate aminotransferase [Enzymatic activity/volume] in Serum or PlasmaOrdered By: Vinnie Rivas on 49-36-0966LMD [Catalytic activity/Vol]46 U/J18-65JekxhqaaxAdena Pike Medical CenterBasophils Auto (Bld) [#/Vol]Ordered By: Vinnie Rivas on 32-91-9032Pasdxhxon (Bld) [#/Vol]0.0 10*3/uL0.0-0.2FAccess Hospital DaytonBasophils/100 WBC Auto (Bld)Ordered By: Vinnie Rivas on 04-28-2023 Basophils/100 WBC (Bld)0.4 %.[facility] CenterBilirubin Test strip Ql (U)Ordered By: Vinnie Rivas on 41-81-3660Wgpoinojy Ql (U)Negative NegativeAdena Pike Medical CenterBilirubin.total [Mass/volume] in Serum or PlasmaOrdered By: Vinnie Rivas on 43-26-8187Tdpbydusn [Mass/Vol]0.3 mg/dL 0.3-1.0[facility] CenterCalcium [Mass/volume] in Serum or Plasma Ordered By: Vinnie Rivas on 74-85-2568Aiemzsn [Mass/Vol]9.0 mg/dL8.6-10.3 [facility] CenterCarbon dioxide, total [Moles/volume] in Serum or PlasmaOrdered By: Vinnie Rivas on 91-09-0640CF0 [Moles/Vol]30.4 mmol/L 21.0-31.0[facility] CenterChloride [Moles/volume] in Serum or PlasmaOrdered By: Vinnie Rivas 32-03-8104Mablztwe [Moles/Vol]101 mmol/L98-107 [facility] CenterColor Auto (U)Ordered By: Vinnie Rivas on 52-24-6642Emkbt (U)YellowYellowAdena Pike Medical CenterCreatinine [Mass/volume] in Serum or PlasmaOrdered By: Vinnie Rivas on 55-81-9208Lokwbulxig [Mass/Vol]0.71 mg/dL0.70-1.30[facility] CenterEosinophils Auto (Bld) [#/Vol]Ordered By: Vinnie Rivas on 98-23-0597Etikjkpgtii (Bld) [#/Vol]0.0 10*3/uL0.0-0.45[facility] CenterEosinophils/100 WBC Auto (Bld) Ordered By: Vinnie Rivas on 64-08-9782Ogiidgfwbiv/100 WBC (Bld)0.5 %.[facility] CenterErythrocyte distribution width Auto (RBC) [Ratio]Ordered By: Vinnie Rivas on 49-22-7426Gbijmmhicxc distribution width (RBC) [Ratio]18.0 % 12.0-14.8[facility] CenterFructosamine [Moles/volume] in Serum or PlasmaOrdered By: Sushant Cordon on 08-65-8962Ewylmerutgxy [Moles/Vol] 565 umol/L0-285A[facility] Medical CenterComment on above:Published reference interval for apparently healthysubjects between age 20 and 60 is 205 - 285 umol/L and in apoorly controlled diabetic population is 228 - 563 umol/Lwith a mean of 396 umol/L.Performed at: [facility] [id number] Director: Arturo Boles PhD, Phone: [phone] Globulin Calc (S) [Mass/Vol]Ordered By: Vinnie Rivas on 24-51-3549Rxrsrnym (S) [Mass/Vol]3.2 g/dLAdena Pike Medical CenterGlucose Glucometer (BldC) [Mass/Vol]Ordered By: Sushant Cordon on 45-51-5580Lrtlsyc [Mass/Vol]137 mg/dLAdena Pike Medical CenterComment on above:Random Glucose Reference Range is dependent on time and content of last meal. Glucose of more than 200 mg/dL in a nonstressed, ambulatory subject supports the diagnosis of Diabetes Mellitus.Glucose [Mass/volume] in Serum or PlasmaOrdered By: Vinnie Rivas on 50-57-6747Ymkzdrj [Mass/Vol]124 mg/qR33-896PnkkaotrfAdena Pike Medical Center Comment on above:ADA recommended reference rangeRandom Glucose Reference Range is dependent on time and content of last meal. Glucose of more than 200 mg/dL in a nonstressed, ambulatory subject supports the diagnosisof Diabetes Mellitus. Glucose mean value [Mass/volume] in Blood Estimated from glycated hemoglobin Ordered By: Sushant Cordon on 84-33-0432Wdliaip glucose Estimated from glycated hemoglobin (Bld) [Mass/Vol]309 mg/dLAdena Pike Medical Center Hematocrit Auto (Bld) [Volume fraction]Ordered By: Vinnie Rivas on 04-28-2023 Hematocrit (Bld) [Volume fraction]34.8 %38.8-50.0[facility] CenterHemoglobin A1c percentageOrdered By: Sushant Cordon on 04-28-2023 HbA1c (Bld) [Mass fraction]12.4 %4.3-5.6FAccess Hospital DaytonComment on above:Increased risk for diabetes: 5.7 - 6.4diabetes: >6.4glycemic control for adults with diabetes: <7.0Hemoglobin [Mass/volume] in BloodOrdered By: Vinnie Rivas on 60-62-1546Tcrrvxhrao (Bld) [Mass/Vol]11.5 g/dL13.0-17.0[facility] CenterINR in Platelet poor plasma by Coagulation assayOrdered By: Vinnie Rivas on 88-13-9218XTC Coag (PPP) [Relative time]1.0 {INR}[facility] CenterComment on above:INR Therapeutic Range A) Pre- and Peroperative OAT started two weeks before surgery. NOT HIP SURGERY: 1.5 - 2.5 HIP SURGERY: 2 - 3B) Primary and secondary prevention of venous THROMBOSIS: 2 - 3C) Active venous thrombosis, pulmonary embolismand prevention of recurrent venous thrombosis: 2 - 3D) Prevention of arterial thromboembolismincluding patients with mechanical heart valves: 3 - 4.5Ketones Auto test strip (U) [Mass/Vol]Ordered By: Vinnie Rivas on 43-93-6416Epjsgqa (U) [Mass/Vol]Negative NegativeAdena Pike Medical CenterLeukocytes [#/volume] corrected for nucleated erythrocytes in Blood by Automated counOrdered By: Vinnie Rivas on 96-55-4918NHA corrected for nucl RBC Auto (Bld) [#/Vol]9.7 10*3/uL4.1-10.5 [facility] CenterLymphocytes Auto (Bld) [#/Vol]Ordered By: Vinnie Rivas on 04-19-0191Xbwsenetgii (Bld) [#/Vol]1.4 10*3/uL1.00-4.8[facility] CenterLymphocytes/100 WBC Auto (Bld)Ordered By: Vinnie Rivas on 22-88-6941Iyflopswqti/100 WBC (Bld)14.8 %.[facility] MemorialH Auto (RBC) [Entitic mass]Ordered By: Vinnie Rivas on 65-90-0266IGA (RBC) [Entitic mass]28.0 pg27.5-35.2FAccess Hospital DaytonMCHC Auto (RBC) [Mass/Vol]Ordered By: Vinnie Rivas on 60-94-8206VPXT (RBC) [Mass/Vol]33.2 g/dL 32.5-35.6FAccess Hospital DaytonMCV Auto (RBC) [Entitic vol]Ordered By: Vinnie Rivas on 21-69-7594ZSQ (RBC) [Entitic vol]84.3 fL83.5-101[facility] CenterMonocyte distribution width [Entitic volume] in Blood by AutomatedOrdered By: Vinnie Rivas on 38-91-6089Zvcgevgv distribution width Auto (Bld) [Entitic vol]18.61 %0.00-20.00[facility] CenterMonocytes Auto (Bld) [#/Vol]Ordered By: Vinnie Rivas on 13-56-1841Ndopvnkwp (Bld) [#/Vol] 0.9 10*3/uL0.0-0.8[facility] CenterMonocytes/100 WBC Auto (Bld) Ordered By: Vinnie Rivas on 61-82-1572Xoldvjpng/100 WBC (Bld)9.3 %.[facility] CenterNatriuretic peptide B [Mass/Vol]Ordered By: iVnnie Rivas on 11-39-1289Zizxcvqannc peptide B (Bld) [Mass/Vol]665.0 pg/mL5-100[facility] CenterNeutrophils Auto (Bld) [#/Vol]Ordered By: Vinnie Rivas on 32-05-5183Aexsqmisoty (Bld) [#/Vol]7.3 10*3/uL1.8-7.7FAccess Hospital DaytonNeutrophils/100 WBC Auto (Bld)Ordered By: Vinnie Rivas on 04-28-2023 Neutrophils/100 WBC (Bld)75.0 %.[facility] CenterNitrite Test strip Ql (U)Ordered By: Vinnie Rivas on 49-19-1676Yvxafbj Ql (U)NegativeNegative [facility] CenterNo Panel InformationOrdered By: Vinnie Rivas on 16-29-1971Xpzbetpmo GFR (CKD-EPI)> 60.0 mL/MinAdena Pike Medical Center Pharmacy Creatinine Clearance (Chem60.38[facility] Nucleated erythrocytes [Presence] in Blood by Automated countOrdered By: Vinnie Rivas on 05-23-6231Ypmehywpz RBC Auto Ql (Bld)0.1 /100{WBC}0-0.5FAccess Hospital DaytonPlatelet mean volume Auto (Bld) [Entitic vol]Ordered By: Vinnie Rivas on 99-40-1344Uvybhhjh mean volume (Bld) [Entitic vol]9.3 fL6.6-10.1 [facility] CenterPlatelets Auto (Bld) [#/Vol]Ordered By: Vinnie Rivas on 94-47-8867Lfheyyimm (Bld) [#/Vol]206 10*3/lG438-415ZuvwgjpbqAdena Pike Medical CenterPotassium [Moles/volume] in Serum or PlasmaOrdered By: Vinnie Rivas on 90-02-6658Zkjawbhbq [Moles/Vol]4.9 mmol/L3.5-5.1FAccess Hospital DaytonProtein Auto test strip (U) [Mass/Vol]Ordered By: Vinnie Rivas on 23-20-3657Nbleutm (U) [Mass/Vol]NegativeNegativeAdena Pike Medical CenterProtein [Mass/volume] in Serum or PlasmaOrdered By: Vinnie Rivas on 90-45-9301Zgfzrxf [Mass/Vol]7.2 g/dL6.4-8.9[facility] Prothrombin time (PT)Ordered By: Vinnie Rivas on 96-67-7570ST Coag (PPP) [Time] 11.8 s9.0-12.9[facility] CenterComment on above:A hematocrit value greater than 55% may lead to inaccurate results in coagulation testing. Patientshaving hematocrit values >55% require a special collection tube for coagulation studies. Please contact the laboratory at [phone] for redraw instructions.RBC Auto (Bld) [#/Vol]Ordered By: Vinnie Rivas on 24-49-4757XHT (Bld) [#/Vol]4.12 10*6/uL3.90-5.60[facility] Healtherum or plasma albumin/globulin mass ratioOrdered By: Vinnie Rivas on 04-28-2023 Albumin/Globulin [Mass ratio]1.3 {ratio}[facility] Healtherum or plasma anion gap determinationOrdered By: Vinnie Rivas on 18-34-2614Npcmz gap [Moles/Vol]9.5 mmol/L6.0-15.0[facility] Healthodium [Moles/volume] in Serum or PlasmaOrdered By: Vinnie Rivas on 89-85-8103Kesbww [Moles/Vol]136 mmol/W083-542DtegzvuqjMadison Healthpecific gravity Auto test strip (U) [Rel density]Ordered By: Vinnie Rivas on 80-37-6018Lslusqqg gravity (U) [Rel density]1.0091.001-1.030[facility] Troponin I.cardiac [Mass/volume] in Serum or Plasma by Detection limit <= 0.01 ng/Ordered By: Vinnie Rivas 04-53-5129Wezvkzrj I.cardiac DL <= 0.01 ng/mL [Mass/Vol]38.3 pg/mL0.0-20.0[facility] CenterUrea nitrogen [Mass/volume] in Serum or PlasmaOrdered By: Vinnie Rivas 80-18-0819Bnue nitrogen [Mass/Vol]15 mg/dL7-25[facility] CenterUrine clarity by refractometry automatedOrdered By: Vinnie Rivas 86-12-9808Wtlwtwl Refractometry automated (U)ClearClearFAccess Hospital DaytonUrine glucose measurement by automated test strip (mass/volume)Ordered By: Vinnie Rivas 21-64-2102Zcsdmnh Auto test strip (U) [Mass/Vol]Normal mg/dLNormal [facility] CenterUrine hemoglobin detection by automated test stripOrdered By: Vinnie Rivas on 81-00-7110Zndarqdbxl Auto test strip Ql (U) NegativeNegativeAdena Pike Medical CenterUrine leukocyte esterase detection by automated test stripOrdered By: Vinnie Rivas on 23-31-6199Ckpzoalrp esterase Auto test strip Ql (U)NegativeNegativeAdena Pike Medical CenterUrobilinogen Auto test strip (U) [Mass/Vol]Ordered By: Vinnie Rob on 44-86-7773Zrqtdhwmghng (U) [Mass/Vol]Normal mg/dLNormalAdena Pike Medical CenterWBC Auto (Bld) [#/Vol]Ordered By: Vinnie Rivas on 77-59-9262JNK (Bld) [#/Vol]9.7 10*3/uL4.1-10.5FAccess Hospital DaytonpH Auto test strip (U)Ordered By: Vinnie Rivas on 69-85-0013dU (U)6.5 [pH]5.0-9.0[facility] CenterCoding Summaryon 06-94-4821Puchvg SummaryHTMLBase 64 JabhzygqDUq7cPn+PGhlYWQ+KO9PMIEiV38hrTZydL5bH3MUWFzJNosbPOPTSBeIBkNcvfAuWA6ziOIx ZXJu [file] bGx (more content not included)...[facility] HospitalConsent Formson 39-93-6047Qiaxpvc [id number]#1.00OTGTIFFNormal [facility] Crille HospitalBUN/Creat Ratioon 30-62-9487tDET Non AA>60Invalid Interpretation [facility] HospitalComment on above:Performed By: #### [id number] #### [facility] (DEFAULT) [address] [place] [address] 59012eHGP AA>60Invalid Interpretation [facility] Comment on above:Performed By: #### [id number] #### [facility] (DEFAULT) [address] [place] [address] 84325Bnyvwsaoln [Mass/Vol]0.69 mg/dLLow0.90-1.30[facility] HospitalComment on above:Performed By: #### [id number] #### [facility] (DEFAULT) [address] [place] [address], [place] [address]Dush nitrogen [Mass/Vol]14 mg/dLNormal8-26[facility] HospitalComment on above:Performed By: #### [id number] #### [facility] (DEFAULT) [address] [place] [address]9766Oaxx nitrogen/Creatinine [Mass ratio]20.2 mg/mgHigh 4.6-16.2Mpremier health miami valley hospital south HospitalComment on above:Performed By: #### [id number] #### [facility] (DEFAULT) [address] [place] [id number] Urogramon 16-81-1513AU UrogramCLINICAL HISTORY: Hydronephrosis. COMPARISON: None available. TECHNIQUE: Multiple [...] limited secondary to the patient's lack of intra- abdominal fat, moderate to large volume stool and [...] hydroureter to the pelvic inlet/crossing vessels, without ureteralor bladder calculi or obvious obstructing masses identified. A few nonobstructing bilateral intrarenal calculi and nonenhancing renal cysts. Other chronic findings, as noted. Final Signed (Electronic Signature): Mima Solorzano MD 04/23/23 3:17 pm Technologist: MACKENZIEMount St. Mary HospitalProvider Orderson [id number] [id number] County Community HospitalUS RENAL AND BLADDERon [id number] [address] Ultrasound Report Signed Patient: MANOLO ROCHE MR#: [id number] : 1935 Acct:[id number] Age/Sex: 88 / M ADM Date: 04/12/23 Loc: US Attending Dr: JonesStaff Physician Morin Ordering Physician: Maci Morton M.D. Date of Service: 04/12/23 Procedure(s): US renal bladder Accession Number(s): [id number] cc: Maci Morton M.D.; MARIE TEJEDA [place] [address] Patient Name: MANOLO ROCHE MRN: [id number] date: 1935 Sex: M Assigned Patient Location: [place] Current Patient Location: US Accession/Order Number: [id number] Exam Date: 04/12/2023 09:03 Report Date: 04/12/2023 [...] Signed By: 04/12/23 1011 DD/ 1008 TD/TT: Lead Mechanical Engineer:MIGUELANGELHRadiology, Radiologist, - 04/15/2023 [place] [address] Ultrasound Report Signed Patient: MANOLO ROCHE MR#: [id number] : 1935 Acct:[id number] Age/Sex: 88 / M ADM Date: 04/12/23 Loc: [place] Attending Dr: Haley-Staff Physician Morin Ordering Physician: Maci Morton M.D. Date of Service: 04/12/23 Procedure(s): US renal bladder Accession Number(s): [id number] cc: PhysicianMaci M.D.; MARIE TEJEDA [place] [id number] Patient Name: MANOLO ROCHE MRN: [id number] date: 1935 Sex: M Assigned Patient Location: Current Patient Location: [place] Accession/Order Number: [id number] Exam Date: 04/12/2023 09:03 Report Date: 04/12/2023 [...] Signed By: 04/12/23 1011 DD/ 1008 TD/TT: Lead Mechanical Engineer: [facility] HealthcareRadiology Study observation (narrative)[facility] HospitalUS RENAL AND BLADDEROrdered By: Radiologist Radiology on [id number] [employer] Work Phone: Provider Orderson [phone] Orders [id number]#1.00OTGTIFFAccess Hospital [place] RANDOMon 21-44-2716Gktappepv Ql (U)NegativeNormalNEGATIVEFort [facility] Hospital Comment on above:Performed By: #### CMP, LIPID #### [facility] [address] [place] [address] Dr. Kylee Oneill (U)CLEARNormalCLEARFort Hamilton HospitalComment on above: Performed By: #### CMP, LIPID #### [facility] [address] [place] [address] Dr. Kylee De La Garza (U)YELLOWNormalYELLOWFort Hamilton HospitalComment on above: Performed By: #### CMP, LIPID #### [facility] [address] [place] [address] Dr. Yilan ChangGlucose Ql (U)NegativeNormalNEGATIVEFort Hamilton HospitalComment on above:Performed By: #### CMP, LIPID #### [facility] [address] [address] [address] Kylee BunchHemoglobin Ql (U)TRACE-INTACTAbnormalNEGATIVEFort Hamilton HospitalComment on above:Performed By: #### CMP, LIPID #### [facility] [address] [address] [address] Kylee BunchKetones Ql (U)TRACEAbnormalNEGATIVEFort Hamilton HospitalComment on above:Performed By: #### CMP, LIPID #### [facility] [address] [place] [address] Dr. Kylee BunchLEUKOCYTESNegativeNormalNEGATIVEFort Hamilton HospitalComkalkaska memorial health center on above:Performed By: #### CMP, LIPID #### [facility] [address] [place] [address] Dr. Kylee BunchNitrite Ql (U)NegativeNormalNEGATIVEFort Hamilton HospitalComment on above:Performed By: #### CMP, LIPID #### [facility] [address] [place] [address] Dr. Kylee BunchpH (U)5.5 [pH]Normal5-9The [facility] on above: Performed By: #### CMP, LIPID #### [facility] [address] [place] [address] Dr. Kylee BunchSPEC GRAVITY>=1.814Mridlsdl6.005-<=1.025The [facility] Comment on above:Performed By: #### CMP, LIPID #### [facility] [address] [place] [address] Dr. Kylee BunchUA PROTEINNegativeSharon SpringsNEGATIVE/ TRACEThe [facility] Comment on above:Performed By: #### CMP, LIPID #### [facility] [address] [place] [address] Dr. Kylee BunchUrobilinogen Qn (U)0.2 {Gemini'U}/dLNormal0.2 - 1.0The [facility] For RehabilitationComment on above:Performed By: #### CMP, LIPID #### [facility] [address] [place] [address] Dr. Kylee Locke AUTO DIFFon [id number] #0.0 103/ulNormal0.0-0.1The [facility] For RehabilitationComment on above:Performed By: #### CMP, LIPID #### [facility] [address] [place] [address] Dr. Kylee BunchBasophils/100 WBC (Bld)0.7 %Normal0.2-2.0[facility] Comment on above:Performed By: #### CMP, LIPID #### [facility] [address] [place] [address] Dr. Kylee Del Castillo #0.1 103/ulNormal0.0-0.7The [facility] For RehabilitationComment on above: Performed By: #### CMP, LIPID #### [facility] [address] [place] [address] Dr. Kylee Steinbergosinophils/100 WBC (Bld)2.6 %Normal0.9-7.0The [facility] Comment on above:Performed By: #### CMP, LIPID #### [facility] [address] [place] [address] Dr. Kylee Steinbergrythrocyte distribution width (RBC) [Ratio]17.2 %Critically high 11.0-15.0Fort Hamilton HospitalComment on above:Performed By: #### CMP, LIPID #### [facility] [address] [place] [address] Dr. Kylee BunchHematocrit (Bld) [Volume fraction]36.1 %Critically low42.0-54.0 The [facility] For RehabilitationComment on above:Performed By: #### CMP, LIPID #### [facility] [address] [place] [address] Dr. Kylee BunchHemoglobin (Bld) [Mass/Vol]12.1 g/dLCritically low14.0-18.0The [facility] RehabilitationComment on above:Performed By: #### CMP, LIPID #### [facility] [address] [address] [address] Kylee Mckoy #0.01 10e3/ulNormal0.00-0.03The [facility] on above:Performed By: #### CMP, LIPID #### [facility] [address] [place] [address] Dr. Kylee Mckoy %0.2 %Normal0.0-0.5The [facility] For RehabilitationComkalkaska memorial health center on above: Performed By: #### CMP, LIPID #### [facility] [address] [place] [address] Dr. Kylee Jones #1.7 103/ulNormal1.2-3.8The [facility] For RehabilitationComment on above:Performed By: #### CMP, LIPID #### [facility] [address] [place] [address] Dr. Kylee Casashocytes/100 WBC (Bld)30.9 %Vusbbi18.5-60.0The [facility] on above:Performed By: #### CMP, LIPID #### [facility] [address] [place] [address] Dr. Kylee BauerUAL DIFF REQNONormalThe [facility] Hospital For RehabilitationComkalkaska memorial health center on above: Performed By: #### CMP, LIPID #### [facility] [address] [place] [address] Dr. Kylee Beasley (RBC) [Entitic mass]27.4 huAfqwag00.9-34.0The [facility] on above:Performed By: #### CMP, LIPID #### [facility] [address] [place] [address] Dr. Kylee Beasley (RBC) [Mass/Vol]33.5 g/dHGhgley31.9-35.2The [facility] on above:Performed By: #### CMP, LIPID #### [facility] [address] [place] [address] Dr. Kylee Beasley (RBC) [Entitic vol]81.9 gLJkmmsq29.0-94.0The [facility] For RehabilitationComment on above:Performed By: #### CMP, LIPID #### [facility] [address] [address] [address] Kylee Abarca #0.7 103/ulNormal0.3-0.8The [facility] Hospitalment on above:Performed By: #### CMP, LIPID #### [facility] [address] [address] [address] Kylee Mirelesocytes/100 WBC (Bld)12.9 %Critically high1.7-12.0The [facility] For RehabilitationComkalkaska memorial health center on above:Performed By: #### CMP, LIPID #### [facility] [address] [place] [address] Dr. Kylee Shook #2.9 103/ulNormal1.4-6.5The [facility] on above:Performed By: #### CMP, LIPID #### [facility] [address] [place] [address] Dr. Kylee Martinutrophils/100 WBC (Bld)52.7 %Jcfacf03.0-75.0The [facility] on above:Performed By: #### CMP, LIPID #### [facility] [address] [place] [address] Dr. Kylee BunchPLT213 103/caIwnpev780-298Ywp [facility] on above: Performed By: #### CMP, LIPID #### [facility] [address] [place] [address] Dr. Kylee BunchRBC4.41 106/ulCritically low4.70-6.10The [facility] on above:Performed By: #### CMP, LIPID #### [facility] [address] [place] [address] Dr. Kylee BunchWBC5.4 103/ulNormal4.0-11.0The [facility] on above: Performed By: #### CMP, LIPID #### [facility] [address] [place] [address] Dr. Kylee JhaID PROFILEon 16-10-3572TSOC-HDL RATIO NORMSEE BELOWNormalThe Wesley Chapel HospitalComment on above:Result Comment: 3.3 - 4.4 LOW RISK 4.4 - 7.1 AVERAGE RISK 7.1 - 11.0 MODERATE RISK >11.0 HIGH RISKPerformed By: #### CMP, LIPID #### [facility] [address] [address] [address] Kylee BunchCholesterol [Mass/Vol]166 mg/dLNormal<=200[facility] Comment on above:Performed By: #### CMP, LIPID #### [facility] [address] [address] [address] Kylee BunchCholesterol in HDL [Mass/Vol]71 mg/dLCritically svvo02-85LclFort Hamilton HospitalComment on above:Performed By: #### CMP, LIPID #### [facility] [address] [address] [address] Kylee BunchCholesterol in LDL [Mass/Vol]84.8 mg/dLCommunity Memorial HospitalComment on above:Performed By: #### CMP, LIPID #### [facility] [address] [address] [address] Kylee Garyestersalinas.total/Cholesterol in HDL [Mass ratio]2.3 {ratio} NormalFort Hamilton HospitalComment on above:Performed By: #### CMP, LIPID #### [facility] [address] [place] [address] Dr. Kylee BunchHDL NORMAL> or = 60 mg/dl - LOW CARDIOVASCULAR RISK <40 mg/dl - HIGH CARDIOVASCULAR RISKCommunity Memorial HospitalComment on above:Performed By: #### CMP, LIPID #### [facility] [address] [place] [address] Dr. Kylee BunchLDL CALC NORMALSEE BELOWCommunity Memorial HospitalComment on above:Result Comment: <100 mg/dl OPTIMAL 100 - 129 mg/dl NEAR OR ABOVE OPTIMAL 130 - 159 mg/dl BORDERLINE HIGH 160 - 189 mg/dl HIGH >190 mg/dl VERY HIGH Performed By: #### CMP, LIPID #### [facility] [address] [place] [address] Dr. Kylee BunchTriglyceride [Mass/Vol]51 mg/dLNormal<=150The [facility] Comment on above:Performed By: #### CMP, LIPID #### [facility] [address] [place] [address] Dr. Kylee BunchVLDL CALC10.2 mg/dLNormalThe [facility] RehabilitationComment on above: Performed By: #### CMP, LIPID #### [facility] [address] [place] [address] Dr. Kylee HernandezALBUMIN, RAND URon 85-11-4034yMKC7.0 mg/LNormal<=30.0The [facility] For RehabilitationComment on above:Performed By: #### MALBR #### [facility] [address] [place] [address] Dr. Kylee BunchPROF 14(COMP METB)on 10-54-0282Qswnmtb [Mass/Vol]3.5 g/dLNormal 3.4-5.0The [facility] For RehabilitationComment on above:Performed By: #### CMP, LIPID #### [facility] [address] [place] [address] Dr. Klyee BunchAlbumin/Globulin [Mass ratio]1.0 {ratio}NormalThe [facility] For RehabilitationComment on above:Performed By: #### CMP, LIPID #### [facility] [address] [place] [address] Dr. Kylee Forman [Catalytic activity/Vol]97 U/NUkovss13-781Zyw [facility] For RehabilitationComment on above:Performed By: #### CMP, LIPID #### [facility] [address] [place] [address] Dr. Kylee Shelton [Catalytic activity/Vol]29 U/LAyzxvq71-72Ggk [facility] RehabilitationComment on above:Performed By: #### CMP, LIPID #### [facility] [address] [place] [address] Dr. Kylee Warner gap [Moles/Vol]6.7 mmol/LNormalThe [facility] RehabilitationComment on above:Performed By: #### CMP, LIPID #### [facility] [address] [address] [address] Kylee BunchAST [Catalytic activity/Vol]28 U/KBlkgtb90-01Upj [facility] For RehabilitationComment on above:Performed By: #### CMP, LIPID #### [facility] [address] [address] [address] Kylee BunchBilirubin [Mass/Vol]0.4 mg/dLNormal0.2-1.0The [facility] Comment on above:Performed By: #### CMP, LIPID #### [facility] [address] [address] [address] Kylee BunchCalcium [Mass/Vol]8.9 mg/dLNormal8.5-10.1The [facility] Comment on above:Performed By: #### CMP, LIPID #### [facility] [address] [address] [address] Kylee BunchChloride [Moles/Vol]99 mmol/UAgmqqe10-236Jnj [facility] Comment on above:Performed By: #### CMP, LIPID #### [facility] [address] [address] [address] Kylee BunchCO2 [Moles/Vol]33.4 mmol/LCritically high21.0-32.0The [facility] RehabilitationComment on above:Performed By: #### CMP, LIPID #### [facility] [address] [address] [address] Kylee BunchCreatinine [Mass/Vol]0.80 mg/dLNormal0.70-1.30The [facility] RehabilitationComment on above:Performed By: #### CMP, LIPID #### [facility] [address] [place] [address] Dr. Kylee SteinbergGFR-AF SAO TOMEAN>60Normal>=60The [facility] For RehabilitationComment on above:Performed By: #### CMP, LIPID #### [facility] [address] [place] [address] Dr. Kylee SteinbergGFR-NON AF SAO TOMEAN>60Normal>=60The [facility] RehabilitationComment on above:Performed By: #### CMP, LIPID #### [facility] [address] [address] [address] Kylee BunchGlobulin (S) [Mass/Vol]3.4 g/dLNormMercy Health St. Rita's Medical CenterComment on above:Performed By: #### CMP, LIPID #### [facility] [address] [address] [address] Kylee BunchGlucose [Mass/Vol]188 mg/dLCritically yjvx42-707Khm [facility] RehabilitationComment on above:Performed By: #### CMP, LIPID #### [facility] [address] [place] [address] Dr. Kylee BunchPotassium [Moles/Vol]4.1 mmol/LNormal3.5-5.1The [facility] Comment on above:Performed By: #### CMP, LIPID #### [facility] [address] [place] [address] Dr. Kylee BunchProtein [Mass/Vol]6.9 g/dLNormal6.4-8.2The [facility] Comment on above:Performed By: #### CMP, LIPID #### [facility] [address] [place] [address] Dr. Kylee BunchSodium [Moles/Vol]135 mmol/LCritically dup593-361Iql [facility] RehabilitationComment on above:Performed By: #### CMP, LIPID #### [facility] [address] [place] [address] Dr. Kylee BunchUrea nitrogen [Mass/Vol]15.0 mg/dLNormal7.0-18.0The [facility] RehabilitationComment on above:Performed By: #### CMP, LIPID #### [facility] [address] [place] [address] Dr. Kylee Saenz nitrogen/Creatinine [Mass ratio]18.8 mg/mgNoUniversity Hospitals Conneaut Medical CenterComment on above:Performed By: #### CMP, LIPID #### [facility] [address] [place] [address] Dr. Kylee BunchUA RANDOM W/MICROSCOPICon 01-03-4811BETGFCUYKBLB SEENNormalNONE SEENFort Hamilton HospitalComment on above:Performed By: #### CMP, LIPID #### [facility] [address] [address] [address] Kylee BunchBilirubin Ql (U)NegativeNormalNEGFort Hamilton Hospital Comment on above:Performed By: #### CMP, LIPID #### [facility] [address] [address] [address] Kylee Perry SEENNormalNONE SEENFort Hamilton HospitalComment on above:Performed By: #### CMP, LIPID #### [facility] [address] [address] [address] Kylee BunchClarity (U)CLEARNormalCLEARFort Hamilton HospitalComment on above: Performed By: #### CMP, LIPID #### [facility] [address] [place] [address] Dr. Kylee Kowalskilor (U)LT. YELLOWNormalYELLOWFort Hamilton HospitalComment on above:Performed By: #### CMP, LIPID #### [facility] [address] [place] [address] Dr. Kylee BunchCrystals LM Nom (Urine sed)NONE SEENNormalNONE SEENFort Hamilton HospitalComment on above:Performed By: #### CMP, LIPID #### [facility] [address] [place] [address] Dr. Pichardo ChangEpithelial cells LM Ql (Urine sed)FEWAbnormalNONE SEEN /RAREFort Hamilton HospitalComment on above:Performed By: #### CMP, LIPID #### [facility] [address] [address] [address] Kylee BunchGlucose Ql (U)NegativeNormalNEGFort Hamilton HospitalComment on above:Performed By: #### CMP, LIPID #### [facility] [address] [place] [address] Dr. Kylee BunchHemoglobin Ql (U)TRACE-LYSEDAbcrittenton behavioral healthalNEGFort Hamilton Hospital Comment on above:Performed By: #### CMP, LIPID #### [facility] [address] [address] [address] Kylee Barrera Ql (U)NegativeNormalNEGATIVEThe [facility] For RehabilitationComment on above:Performed By: #### CMP, LIPID #### [facility] [address] [address] [address] Kylee BunchLEUKOCYTESNegativeNormalNEGATIVEThe [facility] For RehabilitationComment on above:Performed By: #### CMP, LIPID #### [facility] [address] [address] [address] Kylee AguirreCOUSVERO SEENNormalNONE SEENFort Hamilton HospitalComment on above:Performed By: #### CMP, LIPID #### [facility] [address] [address] [address] Kylee Dooley Ql (U)NegativeNormalNEGATIVEThe [facility] For RehabilitationComment on above:Performed By: #### CMP, LIPID #### [facility] [address] [place] [address] Dr. Kylee BunchpH (U)6.0 [pH]Normal5-9The [facility] For RehabilitationComment on above: Performed By: #### CMP, LIPID #### [facility] [address] [address] [address] Kylee BunchNtyyaXNQ4-0Ptinhdck1-3Nzz [facility] on above:Performed By: #### CMP, LIPID #### [facility] [address] [place] [address] Dr. Kylee BunchSPEC GRAVITY1.939Jvbpos9.005-<=1.025The [facility] Hospitalment on above:Performed By: #### CMP, LIPID #### [facility] [address] [place] [address] Dr. Kylee Rodas PROTEINNegativeNormalNEGATIVE/ TRACEThe [facility] on above:Performed By: #### CMP, LIPID #### [facility] [address] [place] [address] Dr. Kylee Correiabilsandhya Qn (U)0.2 {Gemini'U}/dLNormal0.2 - 1.0The [facility] Chapel HospitalComment on above:Performed By: #### CMP, LIPID #### [facility] [address] [place], [place] [address] Dr. Kylee العلي SEENNormalNONE SEENFort Hamilton HospitalComment on above: Performed By: #### CMP, LIPID #### [facility] [address] [place], [place] [address] Dr. Kylee Christiansen Metab w/rfx MGon 01-07-2022(cont.)NormalRegency Hospital Cleveland WestComment on above:Result Comment: Average GFR for 70 or more years old: 75 mL/min/1.73sq m Chronic Kidney Disease: <60 mL/min/1.73sq m Kidney failure: <15 mL/min/1.73sq m eGFR calculated using average adult body mass. Additional eGFR calculator available at: http://www.toucanBox/multiple_crcl_2012.htmPerformed By: #### CDP, MELVIN, BMPX, MG, IPF #### [email or web address] [address] [place] [id number] Medical Representative: Francisco J Fonseca MDAnion gap [Moles/Vol]9 mmol/LNormal9-17Reg[facility] Hospital Cleveland WestComment on above:Performed By: #### CDP, MELVIN, BMPX, MG, IPF #### [email or web address] [address] [place] [id number] Medical Representative: MARLENY Brandonalcium [Mass/Vol]7.8 mg/dLLow8.6-10.4[facility] Hospital Cleveland WestComment on above:Performed By: #### CDP, MELVIN, BMPX, MG, IPF #### [email or web address] [address] [place] [id number] Medical Representative: MARLENY Brandonhloride [Moles/Vol]102 mmol/PVzqduh18-997RvufaRegency Hospital Cleveland WestComment on above:Performed By: #### CDP, MELVIN, BMPX, MG, IPF #### [email or web address] [address] [place] [id number] Medical Representative: Francisco J Fonseca MDCO2 [Moles/Vol]24 mmol/UZqxlky87-73EhuxmRegency Hospital Cleveland WestComment on above:Performed By: #### CDP, MELVIN, BMPX, MG, IPF #### [facility] [address] [place] [id number] Medical Representative: Francisco J Fonseca MDCreatinine [Mass/Vol]0.49 mg/dLLow0.70-1.20[facility] Cleveland WestComment on above:Performed By: #### CDP, MELVIN, BMPX, MG, IPF #### [facility] [address] [place] [id number] Medical Representative: Francisco J Fonseca MDGFR, Amer>60Normal>60Reg[facility] Hospital Cleveland WestComment on above:Performed By: #### CDP, MELVIN, BMPX, MG, IPF #### [facility] [address] [place] [address] Medical Representative: Francisco J Fonseca MDGFR,non Amer>60Normal>60Reg[facility] Hospital Cleveland WestComment on above:Performed By: #### CDP, MELVIN, BMPX, MG, IPF #### [facility] [address] [place] [address] Medical Representative: Francisco J Fonseca MDGlucose [Mass/Vol]79 mg/zHQiubuu38-81Bromx [facility] Global Medical CenterComment on above:Performed By: #### CDP, MELVIN, BMPX, MG, IPF #### [facility] [address] [place] [address] Medical Representative: Francisco J Fonseca MDPotassium [Moles/Vol]3.5 mmol/LLow3.7-5.3MBrea Community HospitalComment on above:Performed By: #### CDP, MELVIN, BMPX, MG, IPF #### [facility] [address] [place] [address] Medical Representative: MEIR Brandonodium [Moles/Vol]135 mmol/ROysaed340-600HgxscRegency Hospital Cleveland WestComment on above:Performed By: #### CDP, MELVIN, BMPX, MG, IPF #### [facility] [address] [place] [address] Medical Representative: Francisco J Fonseca MDUrea nitrogen [Mass/Vol]7 mg/dLLow8-23[facility] Hospital Cleveland WestComment on above:Performed By: #### CDP, MELVIN, BMPX, MG, IPF #### [facility] [address] [place] [address] Medical Representative: MARLENY Brandon with Diffon [id number]. Basophil0.00 k/uL Normal0.0-0.2[facility] Global Medical CenterComment on above:Performed By: #### CDP #### [address] [address] Medical Representative: Vidhya Brandon.Imm.Granulocyte0.00 k/uLNormal0.00-0.30[facility] Cleveland WestComment on above:Performed By: #### CDP #### [facility] [address] [place] [address] Medical Representative: Vidhya Brandon.Neutrophil (Seg)8.33 k/uLHigh1.8-7.7MerLittle Company of Mary HospitalComment on above:Performed By: #### CDP #### [facility] [address] [place] [address] Medical Representative: Francisco J Fonseca MDEosinophils (Bld) [#/Vol]0.11 10*3/uLNormal 0.0-0.4[facility] Cleveland WestComment on above:Performed By: #### CDP #### [facility] [address] [place] [address] Medical Representative: Francisco J Fonseca MDLymphocytes (Bld) [#/Vol]1.22 10*3/uLNormal 1.0-4.8[facility] Cleveland WestComment on above:Performed By: #### CDP #### [address] [address] Medical Representative: MARK Brandononocytes (Bld) [#/Vol]1.44 10*3/uLHigh0.1-0.8 [facility] Cleveland WestComment on above:Performed By: #### CDP #### [address] [address] Medical Representative: Francisco J Fonseca MDNeutrophil (Seg)75 %Ribq13-35SjkkbRegency Hospital Cleveland WestComment on above:Performed By: #### CDP #### [address] [address] Medical Representative: Francisco J Fonseca MDNRBC Automated0.0 per 100 WBCNormal0.0[facility] Cleveland WestComment on above:Performed By: #### CDP #### [address] [address] Medical Representative: Francisco J Fonseca MDWBC (Bld) [#/Vol]11.1 10*3/uLNormal3.5-11.3MBrea Community HospitalComment on above:Performed By: #### CDP #### [address] [address] Medical Representative: Francisco J Fonseca MDBasophils/100 WBC (Bld)0 %Normal0-2B[facility] HOSPITALComkalkaska memorial health center on above:Performed By: #### CDP #### [address] [address] Medical Representative: Francisco J Fonseca MDEosinophils/100 WBC (Bld)1 %Normal1-4BON [facility] SAMARITAN HOSPITALComment on above:Performed By: #### CDP #### [address] [address] Medical Representative: Toan Brandonmature granulocytes/100 WBC (Bld)0 %Gdsfvn3HYU [facility]ITAN HOSPITALComment on above:Performed By: #### CDP #### [address] [address] Medical Representative: Francisco J Fonseca MDLymphocytes/100 WBC (Bld)11 %Vzd95-67DJJ [facility]ITAN HOSPITALComment on above:Performed By: #### CDP #### [address] [address] Medical Representative: MARK Brandononocytes/100 WBC (Bld)13 %High1-7BON [facility] SAMARITAN HOSPITALComment on above:Performed By: #### CDP #### [address] [address] Medical Representative: MARK Brandonorphology Walter (Bld) [Interp]ANISOCYTOSIS PRESENTNormalBON TRIHEALTH GOOD SAMARITAN HOSPITALComkalkaska memorial health center on above:Result Comment: MICROCYTOSIS PRESENT 1+ TARGET CELLS 1+ ACANTHOCYTESPerformed By: #### CDP #### [address] [address] Medical Representative: Francisco J Fonseca MDErythrocyte distribution width (RBC) [Ratio]17.3 %High11.8-14.4[facility] Global Medical CenterComment on above:Performed By: #### CDP #### [address] [address] Medical Representative: Francisco J Fonseca MDHematocrit (Bld) [Volume fraction]36.6 %Low 40.7-50.3[facility] Global Medical CenterComment on above:Performed By: #### CDP #### [address] [address] Medical Representative: Francisco J Fonseca MDHemoglobin (Bld) [Mass/Vol]13.0 g/dLNormal 13.0-17.0[facility] Cleveland WestComment on above:Performed By: #### CDP #### [address] [address] Medical Representative: MARK BrandonCH (RBC) [Entitic mass]26.5 gfPhluri77.2-33.5 [facility] Cleveland WestComment on above:Performed By: #### CDP #### [address] [address] Medical Representative: MARK BrandonCHC (RBC) [Mass/Vol]35.5 g/cRNqnd50.4-34.8[facility] Cleveland WestComment on above:Performed By: #### CDP #### [address] [address] Medical Representative: MARK BrandonCV (RBC) [Entitic vol]74.5 fLLow82.6-102.9[facility] Cleveland WestComment on above:Performed By: #### CDP #### [address] [address] Medical Representative: Isra Brandontelet CountSee Reflexed IPF ResultNormal 138-453Reg[facility] Hospital Cleveland WestComment on above:Performed By: #### CDP #### [address] [address] Medical Representative: LEIGH BrandonBC (Bld) [#/Vol]4.91 10*6/uLNormal4.21-5.77 [facility] Cleveland WestComment on above:Performed By: #### CDP #### [address] [address] Medical Representative: Francisco J Fonseca MDLaboratory - Chemistry and Chemistry - challenge on [id number] [Mass/Vol]1.5 mg/dLLow1.6 - 2.6 mg/dLBON SECOURS MERCY HEALTHAnion gap [Moles/Vol]9 mmol/L9 - 17 mmol/LBON SECOURS MERCY HEALTHCalcium [Mass/Vol]7.8 mg/dLLow8.6 - 10.4 mg/dLBON SECOURS MERCY HEALTHChloride [Moles/Vol]102 mmol/L98 - 107 mmol/LBON SECOURS MERCY HEALTHCO2 [Moles/Vol]24 mmol/L20 - 31 mmol/LBON SECOURS MERCY HEALTHCreatinine [Mass/Vol]0.49 mg/dLLow 0.70 - 1.20 mg/dLBON SECOURS MERCY HEALTHGFR/1.73 sq M.predicted MDRD (S/P/Bld) [Vol rate/Area][facility] ORCHARD HOSPITALProximex HEALTHComment on above:Average GFR for 70 or more years old: 75 mL/min/1.73sq m Chronic Kidney Disease: <60 mL/min/1.73sq m Kidney failure: <15 mL/min/1.73sq m eGFR calculated using average adult body mass. Additional eGFR calculator available at: http://www.toucanBox/multiple_crcl_2011.htm Glucose [Mass/Vol]79 mg/dL70 - 99 mg/dLBON SECOURS MERCY HEALTHPhosphate [Mass/Vol]2.3 mg/dLLow2.5 - 4.5 mg/dLB[facility]RS MERCY HEALTHPotassium [Moles/Vol]3.5 mmol/LLow3.7 - 5.3 mmol/LBON SECOURS MERCY HEALTHSodium [Moles/Vol]135 mmol/L135 - 144 mmol/LBON SECOURS [facility] HOSPITALY HEALTHUrea nitrogen (BldV) [Mass/Vol]7 mg/dLLow8 - 23 mg/dLBON SECOURS [facility] HOSPITALY HEALTHLaboratory - Hematology and Cell countson [id number] (Bld) [#/Vol]0.00 10*3/uLBON SECOURS MERCY HEALTHHematocrit (Bld) [Volume fraction]36.6 %Low40.7 - 50.3 %B[facility] SEC[facility]RS OptaHEALTHY HEALTHHemoglobin (Bld) [Mass/Vol]13.0 g/dL13.0 - 17.0 g/dLBON SECMADISON HEALTHH (RBC) [Entitic mass]26.5 pg25.2 - 33.5 pgHENRICO DOCTORS' HOSPITAL—HENRICO CAMPUSHC (RBC) [Mass/Vol]35.5 g/kBMcjh46.4 - 34.8 g/dLBON SECMADISON HEALTHV (RBC) [Entitic vol]74.5 fLLow82.6 - 102.[address] [facility] Morphology Walter (Bld) [Interp]MICROCYTOSIS PRESENTBON [facility] Morphology Walter (Bld) [Interp]1+ TARGET CELLSCARILION CLINIC ST. ALBANS HOSPITALMorphology Walter (Bld) [Interp]1+ ACANTHOCYTESBON TRIHEALTH GOOD SAMARITAN HOSPITALPlatelet distribution width (Bld) [Ratio]17.3 %High11.8 - 14.4 %CARIL[facility] HOSPITALPlatelets (Bld) [#/Vol]See Reflexed IPF ResultBON TRIHEALTH GOOD SAMARITAN HOSPITALRBC (Bld) [#/Vol] 4.91 10*6/uL4.21 - 5.77 m/uLCARILION CLINIC ST. ALBANS HOSPITALSegmented neutrophils/100 WBC (Bld)75 %High36 - 66 %CAR[facility] AL[facility]ANS HOSPITALWBC (Bld) [#/Vol]11.1 10*3/uL [facility] HOSPITALMagnesiumon 02-10-8413Rkftgyhux [Mass/Vol]1.5 mg/dLLow 1.6-2.6[facility] Global Medical CenterComment on above:Performed By: #### CDP #### [employer] [address] [id number] Medical Representative: Maggie Brandon Panel Informationon [id number] Eos # 0.11BON SECUNIVERSITY H[facility]ALS BEACH[facility] MEDICAL CENTERAbsolute Immature Granulocyte0.00BON [facility] SAM[facility]AN HOSPITALAbsolute Lymph #1.22BON SECUNIVERSITY HOSPITALS BEACHWOOD MEDICAL CENTERAbsolute [place] #1.44HighSENTARA RMH MEDICAL [facility]ENTER HEALTHInterpretation and review of laboratory resultsAbnormalBON TRI[facility]ALTH GOOD SAMARITAN HOSPITALNRBC Automated0.00.0 per 100 WBCBON TRIHEALTH GOOD SAMARITAN HOSPITALSegs Absolute8.33HighBON SECMARSHFIELD MEDICAL CENTER BEAVER DAMPlatelet, Ttvzxftitymk856GCK [facility]AN HOSPITALComment on above:ORDERED BY LABPlatelet, Immature Wyyyenay18.1 %1.1 - 10.3 %BON [facility] SAM[facility]AN HOSPITALComment on above: ORDERED BY LABCARILION CLINIC ST. ALBANS HOSPITALInterpretation and review of laboratory resultsAbnormalBON SECSAKAKAWEA MEDICAL [facility]ENTER HEALTHGFR >60>60 mL/minBON [facility] GOOD SAMARITAN HOSPITALGFR Non->60>60 mL/minCARILION CLINIC ST. ALBANS HOSPITALInterpretation and review of laboratory results AbnormalBON SAME DAY SURGERY CENTERPLT, Immature Fract.on [id number], Fluoresc.230 k/yGUqbakw563-323ErfnbRegency Hospital Cleveland WestComment on above:Result Comment: ORDERED BY LABPerformed By: #### CDP #### [facility] [employer] [address] [place] [address] Medical Representative: SUSANNAH Brandon, Immature Fract.10.1 %Normal1.1-10.3MBrea Community HospitalComment on above:Result Comment: ORDERED BY LAB Performed By: #### CDP #### [employer] [address] [place], [place] [address] Medical Representative: Eliane Brandonsphokhari, Inorg.on 03-12-5953Dknehzzbjl, Inorg.2.3 mg/dLLow2.5-4.5[facility] WestComment on above: Performed By: #### CDP, MELVIN, BMPX, MG, IPF #### [facility] [employer] [address] [place] [address] Medical Representative: Rubina Brandon Metab w/rfx MGon 01-06-2022(cont.)Normal [facility] Hospital Cleveland WestComment on above:Result Comment: Average GFR for 70 or more years old: 75 mL/min/1.73sq m Chronic Kidney Disease: <60 mL/min/1.73sq m Kidney failure: <15 mL/min/1.73sq m eGFR calculated using average adult body mass. Additional eGFR calculator available at: http://www.MeetMoi.Octro/multiple_crcl_2012.htmPerformed By: #### CDP, MELVIN, BMPX, IPF #### [employer] [facility] [address] [place] [address] Medical Representative: Francisco J Fonseca MDAnion gap [Moles/Vol]11 mmol/LNormal9-17[facility] WestComment on above:Performed By: #### CDP, MELVIN, BMPX, IPF #### [email or web address] [address] [place] [address] Medical Representative: Francisco J Fonseca MDCalcium [Mass/Vol]7.7 mg/dLLow8.6-10.4[facility] WestComment on above:Performed By: #### CDP, MELVIN, BMPX, IPF #### [employer] [address] [place] [address] Medical Representative: Francisco J Fonseca MDChloride [Moles/Vol]99 mmol/MWtsmst27-147QyuffRegency Hospital Cleveland WestComment on above:Performed By: #### CDP, MELVIN, BMPX, IPF #### [employer] [address] [place] [address] Medical Representative: Francisco J Fonseca MDCO2 [Moles/Vol]23 mmol/KCpgkfu09-15AjnlrRegency Hospital Cleveland WestComment on above:Performed By: #### CDP, MELVIN, BMPX, IPF #### [employer] [address] [place] [address] Medical Representative: Francisco J Fonseca MDCreatinine [Mass/Vol]0.50 mg/dLLow0.70-1.20[facility] WestComment on above:Performed By: #### CDP, MELVIN, BMPX, IPF #### [facility] [address] [place] [address] Medical Representative: Francisco J Fonseca MDGFR, Amer>60Normal>60[facility]et Global Medical CenterComment on above:Performed By: #### CDP, MELVIN, BMPX, IPF #### [facility] [address] [place] [address] Medical Representative: Francisco J Fonseca MDGFR,non Amer>60Normal>60MerLittle Company of Mary HospitalComment on above:Performed By: #### CDP, MELVIN, BMPX, IPF #### [facility] [address] [place] [address] Medical Representative: Francisco J Fonseca MDGlucose [Mass/Vol]149 mg/sFCwwb66-95QdvgzBrea Community HospitalComment on above:Performed By: #### CDP, MELVIN, BMPX, IPF #### [facility] [address] [place] [address] Medical Representative: DENISE Brandonotassium [Moles/Vol]3.6 mmol/LLow3.7-5.3MBrea Community HospitalComment on above:Performed By: #### CDP, MELVIN, BMPX, IPF #### [facility] [address] [place] [address] Medical Representative: MEIR Brandonodium [Moles/Vol]133 mmol/SSrg057-372RipvkRegency Hospital Cleveland WestComment on above:Performed By: #### CDP, MELVIN, BMPX, IPF #### [facility] [address] [place] [address] Medical Representative: Francisco J Fonesca MDUrea nitrogen [Mass/Vol]11 mg/dLNormal8-23MerLittle Company of Mary HospitalComment on above:Performed By: #### CDP, MELVIN, BMPX, IPF #### [facility] [address] [place] [address] Medical Representative: KRISTOFER Brandon with Diffon [id number]. Basophil0.03 k/uL Normal0.00-0.20[facility] Cleveland WestComment on above:Performed By: #### CDP, MELVIN, BMPX, IPF #### [facility] [facility] [address] [place] [address] Medical Representative: Vidhya Brandon.Imm.Granulocyte0.05 k/uLNormal0.00-0.30[facility] WestComment on above:Performed By: #### CDP, MELVIN, BMPX, IPF #### [employer] [address] [place] [address] Medical Representative: Vidhya Brandon.Neutrophil (Seg)11.21 k/uLHigh1.50-8.10[facility] WestComment on above:Performed By: #### CDP, MELVIN, BMPX, IPF #### [employer] [address] [place] [address] Medical Representative: Francisco J Fonseca MDBasophils/100 WBC (Bld)0 %Normal0-2MBrea Community HospitalComment on above:Performed By: #### CDP, MELVIN, BMPX, IPF #### [employer] [address] [place] [address] Medical Representative: Francisco J Fonseca MDEosinophils (Bld) [#/Vol]0.09 10*3/uLNormal 0.00-0.44[facility] WestComment on above:Performed By: #### CDP, MELVIN, BMPX, IPF #### [employer] [address] [place] [address] Medical Representative: MAXIM Brandonosinophils/100 WBC (Bld)1 %Normal1-4[facility] WestComment on above:Performed By: #### CDP, MELVIN, BMPX, IPF #### [address] [address] Medical Representative: Francisco J Fonseca MDErythrocyte distribution width (RBC) [Ratio]18.4 %High11.8-14.4[facility] Cleveland WestComment on above:Performed By: #### CDP, MELVIN, BMPX, IPF #### [place] [address] Medical Representative: Francisco J Fonseca MDHematocrit (Bld) [Volume fraction]38.2 %Low 40.7-50.3Mhocking valley community hospitaly Hem[facility] Global Medical CenterComment on above:Performed By: #### CDP, MELVIN, BMPX, IPF #### [place] [address] Medical Representative: Francisco J Fonseca MDHemoglobin (Bld) [Mass/Vol]13.2 g/dLNormal 13.0-17.0[facility] WestComment on above:Performed By: #### CDP, MELVIN, BMPX, IPF #### [place] [address] Medical Representative: Francisco J Fonseca MDImmature granulocytes/100 WBC (Bld)0 %Normal0 [facility] Cleveland WestComment on above:Performed By: #### CDP, MELVIN, BMPX, IPF #### [place] [address] Medical Representative: Francisco J Fonseca MDLymphocytes (Bld) [#/Vol]0.82 10*3/uLLow 1.10-3.70[facility] WestComment on above:Performed By: #### CDP, MELVIN, BMPX, IPF #### [place] [address] Medical Representative: Jeremie Brandonmphocytes/100 WBC (Bld)6 %Eqh72-21LnmgrRegency Hospital Cleveland WestComment on above:Performed By: #### CDP, MELVIN, BMPX, IPF #### [facility] [address] [place] [address] Medical Representative: MARK BrandonCH (RBC) [Entitic mass]26.7 jdAdyftw45.2-33.5 [facility] WestComment on above:Performed By: #### CDP, MELVIN, BMPX, IPF #### [facility] [address] [place] [address] Medical Representative: MARK BrandonCHC (RBC) [Mass/Vol]34.6 g/jEAybjkj90.4-34.8 [facility] WestComment on above:Performed By: #### CDP, MELVIN, BMPX, IPF #### [facility] [employer] [address] [place] [address] Medical Representative: MARK BrandonCV (RBC) [Entitic vol]77.2 fLLow82.6-102.9[facility] WestComment on above:Performed By: #### CDP, MELVIN, BMPX, IPF #### [facility] [employer] [address] [place] [address] Medical Representative: MARK Brandononocytes (Bld) [#/Vol]1.14 10*3/uLNormal 0.10-1.20[facility] WestComment on above:Performed By: #### CDP, MELVIN, BMPX, IPF #### [facility] [employer] [address] [place] [address] Medical Representative: MARK Brandononocytes/100 WBC (Bld)9 %Normal3-12[facility] Cleveland WestComment on above:Performed By: #### CDP, MELVIN, BMPX, IPF #### [facility] [employer] [address] [place] [address] Medical Representative: Francisco J Fonseca MDNeutrophil (Seg)84 %Lble46-51VfhbcRegency Hospital Cleveland WestComment on above:Performed By: #### CDP, MELVIN, BMPX, IPF #### [facility] [employer] [address] [place] [address] Medical Representative: Francisco J Fonseca MDNRDENISE Automated0.0 per 100 WBCNormal0.0[facility] WestComment on above:Performed By: #### CDP, MELVIN, BMPX, IPF #### [address] [address] Medical Representative: Isra Brandontelet CountSee Reflexed IPF ResultNormal 138-453[facility] Cleveland WestComment on above:Performed By: #### CDP, MELVIN, BMPX, IPF #### [address] [address] Medical Representative: LEIGH BrandonBC (Bld) [#/Vol]4.95 10*6/uLNormal4.21-5.77 [facility] Cleveland WestComment on above:Performed By: #### CDP, MELVIN, BMPX, IPF #### [address] [address] Medical Representative: YOLA Brandon morphology finding Nom (Bld)ANISOCYTOSIS PRESENTNormalRegency Hospital Cleveland WestComment on above:Result Comment: MICROCYTOSIS PRESENTPerformed By: #### CDP, MELVIN, BMPX, IPF #### [address] [address] Medical Representative: ENRIQUE BrandonBC (Bld) [#/Vol]13.3 10*3/uLHigh3.5-11.3MBrea Community HospitalComment on above:Performed By: #### CDP, MELVIN, BMPX, IPF #### [address] [address] Medical Representative: Francisco J Fonseca MDLaboratory - Chemistry and Chemistry - challenge on [id number] gap [Moles/Vol]11 mmol/L9 - 17 mmol/LBON [facility] Calcium [Mass/Vol]7.7 mg/dLLow8.6 - 10.4 mg/dLBON [facility] MERCY HEALTHChloride [Moles/Vol]99 mmol/L98 - 107 mmol/LBON [facility]RS MERCY HEALTHCO2 [Moles/Vol]23 mmol/L20 - 31 mmol/LBON [facility]RS MER[facility] HEALTHCreatinine [Mass/Vol]0.5 mg/dLLow 0.70 - 1.20 mg/dLBON [facility] MERCY HEALTHGFR/1.73 sq M.predicted MDRD (S/P/Bld) [Vol rate/Area][facility]ITALY HEALTHComment on above:Average GFR for 70 or more years old: 75 mL/min/1.73sq m Chronic Kidney Disease: <60 mL/min/1.73sq m Kidney failure: <15 mL/min/1.73sq m eGFR calculated using average adult body mass. Additional eGFR calculator available at: http://www.toucanBox/multiple_crcl_2012.htm Glucose [Mass/Vol]149 mg/fDFmur42 - 99 mg/dLBON SECOURS MERCY HEALTHPhosphate [Mass/Vol]2.5 mg/dL2.5 - 4.5 mg/dLB[facility] MER[facility] HEALTHPotassium [Moles/Vol] 3.6 mmol/LLow3.7 - 5.3 mmol/LBON SECOURS MERCY HEALTHSodium [Moles/Vol]133 mmol/HOyd782 - 144 mmol/LBON SECOURS MERCY HEALTHUrea nitrogen (BldV) [Mass/Vol] 11 mg/dL8 - 23 mg/dLBON SECOURS MERCY HEALTHLaboratory - Hematology and Cell countson 82-81-6761Okmffgift (Bld) [#/Vol]0.03 10*3/uLBON [facility]OURS [facility] Basophils/100 WBC (Bld)0 %0 - 2 %[facility] HEALTHEosinophils/100 WBC (Bld)1 %1 - 4 %[facility] HEALTHHematocrit (Bld) [Volume fraction]38.2 % Low40.7 - 50.3 %[facility]ITALY HEALTHHemoglobin (Bld) [Mass/Vol]13.2 g/dL13.0 - 17.0 g/dLBON SEC[facility]RS [facility] HOSPITALY HEALTHImmature granulocytes/100 WBC (Bld)0 %0B[facility] MERCY HEALTHLymphocytes/100 WBC (Bld)6 %Low24 - 43 %[facility] SECMADISON HEALTHH (RBC) [Entitic mass]26.7 pg25.2 - 33.5 pgBON SECOURS [facility] SHAWH[facility] (RBC) [Mass/Vol]34.6 g/dL28.4 - 34.8 g/dLBON SECMADISON HEALTHV (RBC) [Entitic vol]77.2 fLLow82.6 - 102.9 fLBANNER GOLDFIELD MEDICAL CENTER SECWILLIS[facility] HEALTHMonocytes/100 WBC (Bld)9 %3 - 12 %[facility] HEALTHPlatelet distribution width (Bld) [Ratio]18.4 %High11.8 - 14.4 %[facility]OS[facility]ITALY HEALTHPlatelets (Bld) [#/Vol]See Reflexed IPF ResultBON SECOURS [facility] SYSTEM BUCYRUS HOSPITALY HEALTHRBC (Bld) [#/Vol]4.95 10*6/uL4.21 - 5.77 m/uLBANNER GOLDFIELD MEDICAL CENTER SECASTRIA SUNNYSIDE HOSPITALY HEALTHRBC (Bld) [#/Vol]ANISOCYTOSIS PRESENTSENTARA RMH MEDICAL CENTER HEALTHComment on above:MICROCYTOSIS PRESENTSegmented neutrophils/100 WBC (Bld)84 %High36 - 65 %[facility]ON SECWILLIS-KNIGHTON [facility]ENTER HEALTHWBC (Bld) [#/Vol]13.3 10*3/uLHighBON SECASTRIA SUNNYSIDE HOSPITALY HEALTHNo Panel Informationon 01-06-2022 Platelet, [id number] SEC[facility]RS [facility]ITALY HEALTHPlatelet, Immature Jfvlbacy74.1 %1.1 - 10.3 %[facility] HEALTHB[facility]ITALY HEALTHAbsolute Eos #0.09 [facility] HEALTHAbsolute Immature Granulocyte0.05[facility] HEALTHAbsolute Lymph #0.82LowBANNER GOLDFIELD [facility]ENTER SECOURS MERCY HEALTHAbsolute [place] #1.14[facility]ITALY HEALTHInterpretation and review of laboratory resultsAbnormalBON [facility]RS [facility]OS[facility]ITALY HEALTHNRBC Automated0.00.0 per 100 WBCBANNER GOLDFIELD [facility]ENTER SECOURS MERCY HEALTHSegs Nsyhatxt77.21HighBON SECOURS [facility] HOSPITALY HEALTHB[facility] HEALTHGFR >60>60 mL/minB[facility] HEALTHGFR Non->60>60 mL/minBON SECASTRIA SUNNYSIDE HOSPITALY HEALTHInterpretation and review of laboratory results AbnormalBON SECOURS [facility] HOSPITALBON [facility] HEALTHPLT, Immature Fract.on 82-50-3373Giaxhsek, Fluoresc.252 k/zWQpqlhi550-137YqalnRegency Hospital Cleveland WestComment on above:Performed By: #### CDP, MELVIN, BMPX, IPF #### [employer] [address] [place] [address] Medical Representative: SUSANNAH Brandon, Immature Fract.10.1 %Normal1.1-10.3MBrea Community HospitalComment on above:Performed By: #### CDP, MELVIN, BMPX, IPF #### [employer] [address] [place] [address] Medical Representative: DENISE Brandonhosphorus, Inorg.on 09-51-3023Byzootazwh, Inorg.2.5 mg/dLNormal2.5-4.5[facility] WestComment on above: Performed By: #### CDP, MELVIN, BMPX, IPF #### [employer] [address] [place] [address] Medical Representative: Ej Brandonc Metab w/rfx MGon [id number] [Moles/Vol]3.4 mmol/LLow3.7-5.3MBrea Community HospitalComment on above: Performed By: #### CDP, MELVIN, BMPX, IPF #### [employer] [address] [place] [address] Medical Representative: Francisco J Fonseca MDUrea nitrogen [Mass/Vol]14 mg/dLNormal8-23[facility] WestComment on above:Performed By: #### CDP, MELVIN, BMPX, IPF #### [facility] [address] [place] [address] Medical Representative: Francisco J Fonseca MDAnion gap [Moles/Vol]12 mmol/LNormal9-17[facility] HEALTHComment on above:Performed By: #### CDP, MELVIN, BMPX, IPF #### [facility] [address] [place] [address] Medical Representative: Francisco J Fonseca MDCalcium [Mass/Vol]8.1 mg/dLLow8.6-10.4[facility] HEALTHComment on above:Performed By: #### CDP, MELVIN, BMPX, IPF #### [facility] [address] [place] [address]34 Medical Representative: Francisco J Fonseca MDChloride [Moles/Vol]98 mmol/DCkysyq32-287ZPN [facility] HEALTHComment on above:Performed By: #### CDP, MELVIN, BMPX, IPF #### [facility] [address] [place] [address]407 Medical Representative: Francisco J Fonseca MDCO2 [Moles/Vol]24 mmol/TOhqmmg76-32HNP [facility] HEALTHComment on above:Performed By: #### CDP, MELVIN, BMPX, IPF #### [facility] [address] [place] [address] 89686 Medical Representative: MARLENY Brandonreatinine [Mass/Vol]0.54 mg/dLLow0.70-1.20[facility] HEALTHComment on above:Performed By: #### CDP, MELVIN, BMPX, IPF #### [facility] [address] [place] [address]909 Medical Representative: Francisco J Fonseca MDGlucose [Mass/Vol]122 mg/xYWjxk53-53RSV [facility] HEALTHComment on above:Performed By: #### CDP, MELVIN, BMPX, IPF #### [facility] [address] [place] [address]647 Medical Representative: Francisco J Fonseca MDSodium [Moles/Vol]134 mmol/JJdl343-973IQN [facility]ITAN HOSPITALComment on above:Performed By: #### CDP, MELVIN, BMPX, IPF #### [facility] [address] [place] [address] 9[address]65 Medical Representative: Francisco J Fonseca MD(cont.)[facility] Comment on above:Result Comment: Average GFR for 70 or more years old: 75 mL/min/1.73sq m Chronic Kidney Disease: <60 mL/min/1.73sq m Kidney failure: <15 mL/min/1.73sq m eGFR calculated using average adult body mass. Additional eGFR calculator available at: http://www.toucanBox/multiple_crcl_2012.htmPerformed By: #### CDP, MELVIN, BMPX, IPF #### [address] [address] Medical Representative: Francisco J Fonseca MDAnion gap [Moles/Vol]11 mmol/LNormal9-17[facility] WestComment on above:Performed By: #### CDP, MELVIN, BMPX, IPF #### [facility] [address] [place] [address] 82628 Medical Representative: MARLENY Brandonalcium [Mass/Vol]9.1 mg/dLNormal8.6-10.4[facility] Cleveland WestComment on above:Performed By: #### CDP, MELVIN, BMPX, IPF #### [facility] [address] [place] [address] 48748 Medical Representative: Francisco J Fonseca MDChloride [Moles/Vol]99 mmol/IPeuvty07-967OzhsdRegency Hospital Cleveland WestComment on above:Performed By: #### CDP, MELVIN, BMPX, IPF #### [facility] [address] [place] [address] 23599 Medical Representative: Francisco J Madoff, MDCO2 [Moles/Vol]25 mmol/ECokakg48-36YsqryRegency Hospital Cleveland WestComment on above:Performed By: #### CDP, MELVIN, BMPX, IPF #### [facility] [address] [place] [address]3902 Medical Representative: Francisco J Fonseca MDCreatinine [Mass/Vol]0.57 mg/dLLow0.70-1.20[facility] Cleveland WestComment on above:Performed By: #### CDP, MELVIN, BMPX, IPF #### [facility] [address] [place] [address] 60721 Medical Representative: Francisco J Fonseca MDGFR, Amer>60Normal>60[facility] Cleveland WestComment on above:Performed By: #### CDP, MELVIN, BMPX, IPF #### [facility] [address] [place] [address] 50170 Medical Representative: ARTURO Brandon,non Amer>60Normal>60[facility] Cleveland WestComment on above:Performed By: #### CDP, MELVIN, BMPX, IPF #### [facility] [address] [place] [address] 45943 Medical Representative: Francisco J Fonseca MDGlucose [Mass/Vol]129 mg/cUWsul03-11Kohic [facility] Global Medical CenterComment on above:Performed By: #### CDP, MELVIN, BMPX, IPF #### [facility] [address] [place] [address]1147 Medical Representative: Francisco J Fonseca MDPotassium [Moles/Vol]3.5 mmol/LLow3.7-5.3Mhock[facility] hospitaly [facility] Medical CenterComment on above:Performed By: #### CDP, MELVIN, BMPX, IPF #### [facility] [address] [place] [address]14 Medical Representative: MEIR Brandonodium [Moles/Vol]135 mmol/GKugwcr877-038YtsbkRegency Hospital Cleveland WestComment on above:Performed By: #### CDP, MELVIN, BMPX, IPF #### [facility] [address] [place] [address] 95285 Medical Representative: Francisco J Fonseca MDUrea nitrogen [Mass/Vol]15 mg/dLNormal8-23[facility] Cleveland WestComment on above:Performed By: #### CDP, EMLVIN, BMPX, IPF #### [facility] [address] [place] [address] Medical Representative: Francisco J Fonseca MD(cont.)[facility] Comment on above:Result Comment: Average GFR for 70 or more years old: 75 mL/min/1.73sq m Chronic Kidney Disease: <60 mL/min/1.73sq m Kidney failure: <15 mL/min/1.73sq m eGFR calculated using average adult body mass. Additional eGFR calculator available at: http://www.MeetMoi.Octro/multiple_crcl_2012.htmPerformed By: #### CDP, MELVIN, BMPX, IPF #### [place] [address] Medical Representative: Francisco J Fonseca MDAnion gap [Moles/Vol]15 mmol/LNormal9-17[facility] Cleveland WestComment on above:Performed By: #### CDP, MELVIN, BMPX, IPF #### [facility] [address] [place] [address] Medical Representative: Francisco J Fonseca, MDCalcium [Mass/Vol]8.2 mg/dLLow8.6-10.4[facility] Cleveland WestComment on above:Performed By: #### CDP, MELVIN, BMPX, IPF #### [facility] [address] [place] [address] 77913 Medical Representative: Francisco J Fonseca MDChloride [Moles/Vol]98 mmol/PVjmini70-408EcirdRegency Hospital Cleveland WestComment on above:Performed By: #### CDP, MELVIN, BMPX, IPF #### [facility] [address] [place] [address]647 Medical Representative: Francisco J Fonseca MDCO2 [Moles/Vol]23 mmol/FQleizb86-78AmmhbRegency Hospital Cleveland WestComment on above:Performed By: #### CDP, MELVIN, BMPX, IPF #### [facility] [address] [place] [address] 63618 Medical Representative: MARLENY Brandonreatinine [Mass/Vol]0.66 mg/dLLow0.70-1.20[facility] Cleveland WestComment on above:Performed By: #### CDP, MELVIN, BMPX, IPF #### [facility] [address] [place] [address] 70638 Medical Representative: Francisco J Fonseca MDGFR, Amer>60Normal>60[facility] Cleveland WestComment on above:Performed By: #### CDP, MELVIN, BMPX, IPF #### [facility] [address] [place] [address] 25934 Medical Representative: Francisco J Fonseca MDGFR,non Amer>60Normal>60[facility] Cleveland WestComment on above:Performed By: #### CDP, MELVIN, BMPX, IPF #### [facility] [address] [place] [address] 51439 Medical Representative: Francisco J Fonseca MDGlucose [Mass/Vol]90 mg/jECcwlty23-94SqqovBrea Community HospitalComment on above:Performed By: #### CDP, MELVIN, BMPX, IPF #### [facility] [address] [place] [address] 25764 Medical Representative: Francisco J Fonseca MDPotassium [Moles/Vol]3.7 mmol/LNormal3.7-5.3 [facility] Cleveland WestComment on above:Performed By: #### CDP, MELVIN, BMPX, IPF #### [facility] [address] [place] [address] 80889 Medical Representative: MEIR Brandonodium [Moles/Vol]136 mmol/QWewetf934-494MgqggRegency Hospital Cleveland WestComment on above:Performed By: #### CDP, MELVIN, BMPX, IPF #### [address] [address] Medical Representative: Francisco J Fonseca MDUrea nitrogen [Mass/Vol]20 mg/dLNormal8-23[facility] Cleveland WestComment on above:Performed By: #### CDP, MELVIN, BMPX, IPF #### [address] [address] Medical Representative: MARLENY Brandon with Diffon [id number]. Basophil0.04 k/uL Normal0.00-0.20[facility] Cleveland WestComment on above:Performed By: #### CDP, MELVIN, BMPX, IPF #### [facility] [address] [place] [address] 98204 Medical Representative: MDAbs. RomaImm.Granulocyte0.08 k/uLNormal0.00-0.30[facility] Cleveland WestComment on above:Performed By: #### CDP, MELVIN, BMPX, IPF #### [facility] [address] [place] [address] 60732 Medical Representative: Vidhya Brandon.Neutrophil (Seg)14.26 k/uLHigh1.50-8.10[facility] Cleveland WestComment on above:Performed By: #### CDP, MELVIN, BMPX, IPF #### [facility] [address] [place] [address] 31550 Medical Representative: Francisco J Fonseca MDBasophils/100 WBC (Bld)0 %Normal0-2MBrea Community HospitalComment on above:Performed By: #### CDP, MELVIN, BMPX, IPF #### [facility] [address] [place] [address] 82584 Medical Representative: Francisco J Fonseca MDEosinophils (Bld) [#/Vol]0.11 10*3/uLNormal 0.00-0.44[facility] WestComment on above:Performed By: #### CDP, MELVIN, BMPX, IPF #### [facility] [address] [place] [address] 79016 Medical Representative: MAXIM Brandonosinophils/100 WBC (Bld)1 %Normal1-4[facility] Cleveland WestComment on above:Performed By: #### CDP, MELVIN, BMPX, IPF #### [facility] [address] [place] [address] 9[address]24 Medical Representative: Francisco J Fonseca MDImmature granulocytes/100 WBC (Bld)1 %Pmmu9PvzwuRegency Hospital Cleveland WestComment on above:Performed By: #### CDP, MELVIN, BMPX, IPF #### [facility] [address] [place] [address] 78270 Medical Representative: Jeremie Brandonmphocytes (Bld) [#/Vol]0.96 10*3/uLLow 1.10-3.70[facility] Cleveland WestComment on above:Performed By: #### CDP, MELVIN, BMPX, IPF #### [facility] [address] [place] [address] 48104 Medical Representative: Jeremie Brandonmphocytes/100 WBC (Bld)6 %Xfo26-76WxvoxRegency Hospital Cleveland WestComment on above:Performed By: #### CDP, MELVIN, BMPX, IPF #### [facility] [address] [place] [address] 05197 Medical Representative: MARK Brandononocytes (Bld) [#/Vol]0.97 10*3/uLNormal 0.10-1.20[facility] WestComment on above:Performed By: #### CDP, MELVIN, BMPX, IPF #### [facility] [address] [place] [address] 40399 Medical Representative: MARK Brandononocytes/100 WBC (Bld)6 %Normal3-12[facility] Cleveland WestComment on above:Performed By: #### CDP, MELVIN, BMPX, IPF #### [facility] [address] [place] [address] Medical Representative: Francisco J Fonseca MDNeutrophil (Seg)87 %Dnqy54-37FzqtxRegency Hospital Cleveland WestComment on above:Performed By: #### CDP, MELVIN, BMPX, IPF #### [facility] [address] [place] [address]2332 Medical Representative: Francisco J Fonseca MDErythrocyte distribution width (RBC) [Ratio]18.6 %High11.8-14.4[facility] Cleveland WestComment on above:Performed By: #### CDP, MELVIN, BMPX, IPF #### [facility] [address] [place] [address] 12423 Medical Representative: Francisco J Fonseca MDHematocrit (Bld) [Volume fraction]38.9 %Low 40.7-50.3Mhocking valley community hospitaly [facility] Global Medical CenterComment on above:Performed By: #### CDP, MELVIN, BMPX, IPF #### [facility] [address] [place] [address] Medical Representative: Francisco J Fonseca MDHemoglobin (Bld) [Mass/Vol]13.5 g/dLNormal 13.0-17.0[facility] WestComment on above:Performed By: #### CDP, MELVIN, BMPX, IPF #### [facility] [address] [place] [address] 26166 Medical Representative: MARK BrandonCH (RBC) [Entitic mass]26.8 doXsrmte34.2-33.5 [facility] WestComment on above:Performed By: #### CDP, MELVIN, BMPX, IPF #### [address] [address] Medical Representative: MARK BrandonCHC (RBC) [Mass/Vol]34.7 g/kIUkwxgi64.4-34.8 [facility] WestComment on above:Performed By: #### CDP, MELVIN, BMPX, IPF #### [facility] [address] [place] [address] 26755 Medical Representative: MARK BrandonCV (RBC) [Entitic vol]77.3 fLLow82.6-102.9[facility] WestComment on above:Performed By: #### CDP, MELVIN, BMPX, IPF #### [address] [address] Medical Representative: Francisco J Fonseca MDNRBC Automated0.0 per 100 WBCNormal0.0[facility] Cleveland WestComment on above:Performed By: #### CDP, MELVIN, BMPX, IPF #### [facility] [address] [place] [address] 60891 Medical Representative: DENISE Brandonlatelet CountSee Reflexed IPF ResultNormal 138-453[facility] Cleveland WestComment on above:Performed By: #### CDP, MELVIN, BMPX, IPF #### [facility] [address] [place] [address] 30030 Medical Representative: LEIGH BrandonBC (Bld) [#/Vol]5.03 10*6/uLNormal4.21-5.77 [facility] WestComment on above:Performed By: #### CDP, MELVIN, BMPX, IPF #### [facility] [address] [place] [address] 10964 Medical Representative: Francisco J Madoff, MDRBC morphology finding Nom (Bld)ANISOCYTOSIS PRESENTNormalMerLittle Company of Mary HospitalComment on above:Result Comment: MICROCYTOSIS PRESENTPerformed By: #### CDP, MELVIN, BMPX, IPF #### [email or web address] [address] [place], [place] [id number] Medical Representative: Francisco J Fonseca MDWBC (Bld) [#/Vol]16.4 10*3/uLHigh3.5-11.3[facility] Global Medical CenterComment on above:Performed By: #### CDP, MELVIN, BMPX, IPF #### [email or web address] [address] [place], [place] [id number] Medical Representative: Francisco J Fonseca MDFL UGIon [id number] UGIEXAMINATION: SINGLE CONTRAST UPPER GI SERIES 01/05/2022 HISTORY: ORDERING SYSTEM PROVIDED HISTORY: repair perf ulcer TECHNOLOGIST PROVIDED HISTORY: repair perf ulcer COMPARISON: None. TECHNIQUE: Multiple single contrast images of the esophagus, gastroesophageal junction and stomach were obtained following the oral administration of water soluble contrast. FLUOROSCOPY DOSE AND TYPE OR TIME AND EXPOSURES: DAP 16.940Dbkr2 FINDINGS: Contrast was administered through the indwelling [...] Signed by: Howard Aldridge MD 01/05/22 Final resultNormalRegency Hospital Cleveland WestLaboratory - Chemistry and Chemistry - challengeon [id number] [Mass/Vol]1.4 mg/dLLow1.6 - 2.6 mg/dLBON TRIHEALTH GOOD SAMARITAN HOSPITALGFR/1.73 sq M.predicted MDRD (S/P/Bld) [Vol rate/Area][facility]ON [facility] SAMARITAN HOSPITALComment on above:Average GFR for 70 or more years old: 75 mL/min/1.73sq m Chronic Kidney Disease: <60 mL/min/1.73sq m Kidney failure: <15 mL/min/1.73sq m eGFR calculated using average adult body mass. Additional eGFR calculator available at: http://www.toucanBox/multiple_crcl_2012.htm Potassium [Moles/Vol]3.4 mmol/LLow3.7 - 5.3 mmol/LBON SECOURS [facility] SYSTEM BUCYRUS HOSPITALY HEALTHUrea nitrogen (BldV) [Mass/Vol]14 mg/dL8 - 23 mg/dLBON SEC[facility]RS MERCY HEALTHPhosphate [Mass/Vol]2.4 mg/dLLow2.5 - 4.5 mg/dLBON [facility]RS MERCY HEALTHMagnesium [Mass/Vol]1.5 mg/dLLow1.6 - 2.6 mg/dLBON SEC[facility]RS MERCY HEALTHAnion gap [Moles/Vol]11 mmol/L9 - 17 mmol/LBON SECOURS MERCY HEALTHCalcium [Mass/Vol]9.1 mg/dL8.6 - 10.4 mg/dLBON [facility]RS MERCY HEALTHChloride [Moles/Vol]99 mmol/L98 - 107 mmol/LBON SECOURS [facility]US HOSPITALY HEALTHCO2 [Moles/Vol]25 mmol/L20 - 31 mmol/LBON SECOURS MERCY HEALTHCreatinine [Mass/Vol]0.57 mg/dLLow0.70 - 1.20 mg/dLBON SEC[facility]RS [facility] HOSPITALY HEALTHGFR/1.73 sq M.predicted MDRD (S/P/Bld) [Vol rate/Area]BON [facility] GOOD SAMARITAN HOSPITALComment on above:Average GFR for 70 or more years old: 75 mL/min/1.73sq m Chronic Kidney Disease: <60 mL/min/1.73sq m Kidney failure: <15 mL/min/1.73sq m eGFR calculated using average adult body mass. Additional eGFR calculator available at: http://www.toucanBox/multiple_crcl_2012.htm Glucose [Mass/Vol]129 mg/xZDehe01 - 99 mg/dLBON SECOURS MERCY HEALTHPhosphate [Mass/Vol]2.4 mg/dLLow2.5 - 4.5 mg/dLBON [facility]RS MERCY HEALTHPotassium [Moles/Vol]3.5 mmol/LLow3.7 - 5.3 mmol/LBON SECOURS MERCY HEALTHSodium [Moles/Vol]135 mmol/L135 - 144 mmol/LBON TRIHEALTH GOOD SAMARITAN HOSPITALUrea nitrogen (BldV) [Mass/Vol]15 mg/dL8 - 23 mg/dLBON TRIHEALTH GOOD SAMARITAN HOSPITALLaboratory - Hematology and Cell countson [id number] (Bld) [#/Vol]0.04 10*3/uLBON TRIHEALTH GOOD SAMARITAN HOSPITALBasophils/100 WBC (Bld)0 %0 - 2 %[facility] Eosinophils/100 WBC (Bld)1 %1 - 4 %[facility] HOSPITALHematocrit (Bld) [Volume fraction]38.9 %Low40.7 - 50.3 %[facility] HOSPITALHemoglobin (Bld) [Mass/Vol]13.5 g/dL13.0 - 17.0 g/dLBON TRIHEALTH GOOD SAMARITAN HOSPITALImmature granulocytes/100 WBC (Bld)1 %Bjxc5CIA [facility] SAMARITAN HOSPITALLymphocytes/100 WBC (Bld)6 %Low24 - 43 %[facility]AMPUSH (RBC) [Entitic mass]26.8 pg25.2 - 33.5 pgBON [facility] HOSPITALHC (RBC) [Mass/Vol]34.7 g/dL28.4 - 34.8 g/dL [facility]USV (RBC) [Entitic vol]77.3 fLLow82.6 - 102.[address] ALBANS HOSPITALMonocytes/100 WBC (Bld)6 %3 - 12 %[facility] Platelet distribution width (Bld) [Ratio]18.6 %High11.8 - 14.4 %[facility] HOSPITALPlatelets (Bld) [#/Vol]See Reflexed IPF ResultBON TRIHEALTH GOOD SAMARITAN HOSPITALRBC (Bld) [#/Vol]5.03 10*6/uL4.21 - 5.77 m/uLCARILION CLINIC ST. ALBANS HOSPITALRBC (Bld) [#/Vol]ANISOCYTOSIS PRESENTCARILION CLINIC ST. ALBANS HOSPITALComment on above: MICROCYTOSIS PRESENTSegmented neutrophils/100 WBC (Bld)87 %High36 - 65 %[facility] HOSPITALWBC (Bld) [#/Vol]16.4 10*3/uLWilliamson Memorial HospitalBON [facility] Magnesiumon 60-55-4061Tbcshgusw [Mass/Vol]1.4 mg/dLLow1.6-2.6[facility] Global Medical CenterComment on above:Performed By: #### CDP, MELVIN, BMPX, IPF #### [facility] [address] [place] [address] Medical Representative: Francisco J Fonseca MDMagnesium [Mass/Vol]1.5 mg/dLLow1.6-2.6[facility] Medical CenterComment on above:Performed By: #### CDP, MELVIN, BMPX, IPF #### [facility] [address] [place] [address] Medical Representative: Francisco J Fonseca MDNovant Health Brunswick Medical Center Informationon . No evidence for contrast leakage from the stomach or duodenum following repair of perforated ulcer. 2. Gastroesophageal reflux. [facility] CONSOLIDATEDEXAMINATION: SINGLE CONTRAST UPPER GI SERIES 01/05/2022 HISTORY: ORDERING SYSTEM PROVIDED HISTORY: repair perf ulcer TECHNOLOGIST PROVIDED HISTORY: repair perf ulcer COMPARISON: None. TECHNIQUE: Multiple single contrast images of the esophagus, gastroesophageal junction and stomach were obtained following the oral administration of water soluble contrast. FLUOROSCOPY DOSE AND TYPE OR TIME AND EXPOSURES: DAP 16.795Lgsq2 FINDINGS: Contrast was administered through the indwelling NG tube. No extravasation of contrast from the stomach. There is normal filling of stomach and proximal small bowel loops. There was some reflux into the biliary tree. Gastroesophageal reflux is noted. [facility] Howard Castorena MD - 01/05/2022 EXAMINATION: SINGLE CONTRAST UPPER GI SERIES 01/05/2022 HISTORY: ORDERING SYSTEM PROVIDED HISTORY: repair perf ulcer TECHNOLOGIST PROVIDED HISTORY: repair perf ulcer COMPARISON: None. TECHNIQUE: Multiple single contrast images of the esophagus, gastroesophageal junction and stomach were obtained following the oral administration of water soluble contrast. FLUOROSCOPY DOSE AND TYPE OR TIME AND EXPOSURES: DAP 16.281Yxxr4 FINDINGS: Contrast was administered through the indwelling NG tube. No extravasation of contrast from the stomach. There is normal filling of stomach and proximal small bowel loops. There was some reflux into the biliary tree. Gastroesophageal reflux is noted. IMPRESSION: 1. No evidence for contrast leakage from the stomach or duodenum following repair of perforated ulcer. 2. Gastroesophageal reflux. [employer]AMONT Liii[employer] Work Phone: radiology Study observation (narrative)[employer] Work Phone: Interpretation and review of laboratory results AbnormalBON SECOURS MERCY HEALTHBON [facility] MERCY HEALTHGFR >60 >60 mL/minBON SEC[facility]RS MERCY HEALTHGFR Non->60>60 mL/minBON [facility] MERCY HEALTHInterpretation and review of laboratory resultsAbnormalBON [facility]OURS MERCY HEALTHB[facility] MERCY HEALTHInterpretation and review of laboratory resultsAbnormalBON SECOURS [facility]ITALY HEALTHB[facility] Opt[facility]ALTHY HEALTH Interpretation and review of laboratory resultsAbnormalBON SECNovetas Solutions HEALTH Platelet, Cajsgsihcjpw525RSI SECOURS OptaHEALTHY HEALTHPlatelet, Immature Hcalsdlu16.5 %High1.1 - 10.3 %BON SECNextMediumY HEALTHBON SECOURS MERCY HEALTHAbsolute Eos # 0.11[facility] MERCY HEALTHAbsolute Immature Granulocyte0.08[facility] HEALTHAbsolute Lymph #0.96LowBON SECOURS MERCY HEALTHAbsolute [place] #0.97[facility] HEALTHInterpretation and review of laboratory resultsAbnormalBON SECOURS OptaHEALTHY HEALTHNRBC Automated0.00.0 per 100 WBCBON SECOURS OptaHEALTHY HEALTHSegs Cvlydjue07.26HighBON SECOURS [facility] HOSPITALY HEALTHBANNER [facility] SECOURS MERCY HEALTHInterpretation and review of laboratory resultsAbnormalBON SEC[facility]RS [facility]OSPITALY HEALTHB[facility] HOSPITALY HEALTHGFR >60>60 mL/minBON SECOURS MERCY HEALTHGFR Non- >60>60 mL/minBON SECOURS MERCY HEALTHInterpretation and review of laboratory resultsAbnormalBON SECOURS [facility] HOSPITALY HEALTHBON [facility] OptaHEALTHY HEALTHNo Panel InformationOrdered By: Howard Aldridge on [id number] Liiiike Work Phone: PLT, Immature Fract.on 45-57-4950Npnswaas, Fluoresc. 250 k/dQDeomcn302-798Paf[address] [place], [place] [address]Comment on above:Performed By: #### CDP, MELVIN, BMPX, IPF #### [facility] [address] [place] [address] Medical Representative: SUSANNAH Brandon Immature Fract.10.5 %High1.1-10.3[facility] Medical CenterComment on above:Performed By: #### CDP, MELVIN, BMPX, IPF #### [facility] [address] [place] [address] Medical Representative: Brandon Brandonhokhari Inorg.on 66-47-1943Nuuwjqsbts, Inorg.2.4 mg/dLLow2.5-4.5[facility] WestComment on above: Performed By: #### CDP, MELVIN, BMPX, IPF #### [facility] [address] [place] [address] Medical Representative: Mckayla Brandon Inorg.1.9 mg/dLLow2.5-4.5[facility] WestComment on above:Performed By: #### CDP, MELVIN, BMPX, IPF #### [facility] [address] [place] [address] Medical Representative: Rubina Brandon Metab w/rfx MGon 81-05-6524Wjpenbgnp [Moles/Vol]3.4 mmol/LLow3.7-5.3Mhocking valley community hospitaly [facility] Medical CenterComment on above: Performed By: #### CDP, MELVIN, BMPX, IPF #### [facility] [address] [place] [address] Medical Representative: Francisco J Fonseca MD(cont.)[facility] Comment on above:Result Comment: Average GFR for 70 or more years old: 75 mL/min/1.73sq m Chronic Kidney Disease: <60 mL/min/1.73sq m Kidney failure: <15 mL/min/1.73sq m eGFR calculated using average adult body mass. Additional eGFR calculator available at: http://www.MeetMoi.com/multiple_crcl_2012.htmPerformed By: #### CDP, MELVIN, BMPX, IPF #### [facility] [address] [place] [address] Medical Representative: Francisco J Fonseca MDAnion gap [Moles/Vol]12 mmol/LNormal9-17[facility] WestComment on above:Performed By: #### CDP, MELVIN, BMPX, IPF #### [facility] [address] [place] [address] Medical Representative: Francisco J Fonseca MDCalcium [Mass/Vol]8.1 mg/dLLow8.6-10.4[facility] WestComment on above:Performed By: #### CDP, MELVIN, BMPX, IPF #### [facility] [address] [place] [address] Medical Representative: Francisco J Fonseca MDChloride [Moles/Vol]99 mmol/TDcxtxj23-604AhuvsRegency Hospital Cleveland WestComment on above:Performed By: #### CDP, MELVIN, BMPX, IPF #### [facility] [address] [place] [address] Medical Representative: Francisco J Fonseca MDCO2 [Moles/Vol]23 mmol/WCpwmav97-72EytvpRegency Hospital Cleveland WestComment on above:Performed By: #### CDP, MELVIN, BMPX, IPF #### [facility] [address] [place] [address] Medical Representative: Francisco J Fonseca MDCreatinine [Mass/Vol]0.61 mg/dLLow0.70-1.20[facility] Cleveland WestComment on above:Performed By: #### CDP, MELVIN, BMPX, IPF #### [facility] [address] [place] [address] Medical Representative: Francisco J Madoff, MDGFR, Amer>60Normal>60[facility] Cleveland WestComment on above:Performed By: #### CDP, MELVIN, BMPX, IPF #### [facility] [address] [place] [address] Medical Representative: Francisco J Fonseca MDGFR,non Amer>60Normal>60[facility] Cleveland WestComment on above:Performed By: #### CDP, MELVIN, BMPX, IPF #### [facility] [address] [place] [address] Medical Representative: Francisco J Fonseca MDGlucose [Mass/Vol]125 mg/sOMdri38-30WlftkBrea Community HospitalComment on above:Performed By: #### CDP, MELVIN, BMPX, IPF #### [address] [address] Medical Representative: MEIR Brandonodium [Moles/Vol]134 mmol/DMfx777-976GsnxgRegency Hospital Cleveland WestComment on above:Performed By: #### CDP, MELVIN, BMPX, IPF #### [facility] [address] [place] [address] Medical Representative: Francisco J Fonseca MDUrea nitrogen [Mass/Vol]19 mg/dLNormal8-23Reg[facility] Hospital Cleveland WestComment on above:Performed By: #### CDP, MELVIN, BMPX, IPF #### [facility] [employer] [address] [place] [address] Medical Representative: Francisco J Fonseca MD(cont.)[facility] Comment on above:Result Comment: Average GFR for 70 or more years old: 75 mL/min/1.73sq m Chronic Kidney Disease: <60 mL/min/1.73sq m Kidney failure: <15 mL/min/1.73sq m eGFR calculated using average adult body mass. Additional eGFR calculator available at: http://www.MeetMoi.Octro/multiple_crcl_2012.htmPerformed By: #### CDP, MELVIN, BMPX, IPF #### [facility] [address] [place] [address] Medical Representative: Francisco J Fonseca MDAnion gap [Moles/Vol]13 mmol/LNormal9-17[facility] Hospital Cleveland WestComment on above:Performed By: #### CDP, MELVIN, BMPX, IPF #### [facility] [address] [place] [address] Medical Representative: Francisco J Fonseca MDCalcium [Mass/Vol]8.4 mg/dLLow8.6-10.4[facility] Cleveland WestComment on above:Performed By: #### CDP, MELVIN, BMPX, IPF #### [address] [address] Medical Representative: MARLENY Brandonhloride [Moles/Vol]101 mmol/PXmtotp47-011LpclcRegency Hospital Cleveland WestComment on above:Performed By: #### CDP, MELVIN, BMPX, IPF #### [address] [address] Medical Representative: Francisco J Fonseca MDCO2 [Moles/Vol]23 mmol/UZqdnas16-91FdijpRegency Hospital Cleveland WestComment on above:Performed By: #### CDP, MELVIN, BMPX, IPF #### [place] [address] Medical Representative: Francisco J Fonseca MDCreatinine [Mass/Vol]0.73 mg/dLNormal0.70-1.20 [facility] Cleveland WestComment on above:Performed By: #### CDP, MELVIN, BMPX, IPF #### [address] [address] Medical Representative: ARTURO Brandon,Krystal Amer>60Normal>60MerLittle Company of Mary HospitalComment on above:Performed By: #### CDP, MELVIN, BMPX, IPF #### [facility] [address] [place] [address] Medical Representative: Francisco J Fonseca MDGFR,non Amer>60Normal>60[facility] Cleveland WestComment on above:Performed By: #### CDP, MELVIN, BMPX, IPF #### [facility] [address] [place] [address] Medical Representative: Francisco J Fonseca MDGlucose [Mass/Vol]124 mg/kRJwqs72-31RyxhmBrea Community HospitalComment on above:Performed By: #### CDP, MELVIN, BMPX, IPF #### [facility] [address] [place] [address]87 Medical Representative: Francisco J Fonseca, MDPotassium [Moles/Vol]3.9 mmol/LNormal3.7-5.3 [facility] Cleveland WestComment on above:Performed By: #### CDP, MELVIN, BMPX, IPF #### [facility] [address] [place] [address] Medical Representative: MEIR Brandonodium [Moles/Vol]137 mmol/PSrtpsz589-114UhlbsRegency Hospital Cleveland WestComment on above:Performed By: #### CDP, MELVIN, BMPX, IPF #### [facility] [employer] [address] [place] [address] Medical Representative: Francisco J Fonseca MDUrea nitrogen [Mass/Vol]24 mg/dLHigh8-23[facility] Cleveland WestComment on above:Performed By: #### CDP, MELVIN, BMPX, IPF #### [facility] [employer] [address] [place] [address] Medical Representative: Francisco J Fonseac MD(cont.)[facility] Comment on above:Result Comment: Average GFR for 70 or more years old: 75 mL/min/1.73sq m Chronic Kidney Disease: <60 mL/min/1.73sq m Kidney failure: <15 mL/min/1.73sq m eGFR calculated using average adult body mass. Additional eGFR calculator available at: http://www.MeetMoi.Octro/multiple_crcl_2012.htmPerformed By: #### BMPX, MELVIN #### [facility] [address] [place] [address] Medical Representative: Francisco J Fonseca MDAnion gap [Moles/Vol]12 mmol/LNormal9-17[facility] Cleveland WestComment on above:Performed By: #### BMPX, MELVIN #### [address] [address] Medical Representative: Francisco J Fonseca MDCalcium [Mass/Vol]8.5 mg/dLLow8.6-10.4[facility] Hospital Cleveland WestComment on above:Performed By: #### BMPX, MELVIN #### [address] [address] Medical Representative: FranciscoJ Fonseca MDChloride [Moles/Vol]101 mmol/BZwffvh47-230DbfhlRegency Hospital Cleveland WestComment on above:Performed By: #### BMPX, MELVIN #### [address] [address] Medical Representative: Francisco J Fonseca MDCO2 [Moles/Vol]23 mmol/OQgxqcx39-88BpdldRegency Hospital Cleveland WestComment on above:Performed By: #### BMPX, MELVIN #### [address] [address] Medical Representative: Francisco J Fonseca MDCreatinine [Mass/Vol]0.82 mg/dLNormal0.70-1.20 [facility] Cleveland WestComment on above:Performed By: #### BMPX, MELVIN #### [facility] [address] [place] [address] Medical Representative: Francisco J Fonseca MDGFR, Amer>60Normal>60[facility] Cleveland WestComment on above:Performed By: #### BMPX, MELVIN #### [facility] [address] [place] [address] Medical Representative: Francisco J Fonseca MDGFR,non Amer>60Normal>60[facility] Cleveland WestComment on above:Performed By: #### BMPX, MELVIN #### [facility] [address] [place] [address] Medical Representative: Francisco J Fonseca MDGlucose [Mass/Vol]100 mg/zJCiap78-03LaereBrea Community HospitalComment on above:Performed By: #### BMPX, MELVIN #### [address] [address] Medical Representative: DENISE Brandonotassium [Moles/Vol]3.9 mmol/LNormal3.7-5.3 [facility] Cleveland WestComment on above:Performed By: #### BMPX, MELVIN #### [address] [address] Medical Representative: MEIR Brandonodium [Moles/Vol]136 mmol/ICcluit037-220ZvijcRegency Hospital Cleveland WestComment on above:Performed By: #### BMPX, MELVIN #### [address] [address] Medical Representative: Francisco J Fonseca MDUrea nitrogen [Mass/Vol]26 mg/dLHigh8-23[facility] Cleveland WestComment on above:Performed By: #### BMPX, MELVIN #### [address] [address] Medical Representative: Francisco J Fonseca MD(cont.)[facility] Comment on above:Result Comment: Average GFR for 70 or more years old: 75 mL/min/1.73sq m Chronic Kidney Disease: <60 mL/min/1.73sq m Kidney failure: <15 mL/min/1.73sq m eGFR calculated using average adult body mass. Additional eGFR calculator available at: http://www.MeetMoi.Octro/multiple_crcl_2012.htmPerformed By: #### CDP #### [address] [address] Medical Representative: Francisco J Fonseca MDAnion gap [Moles/Vol]11 mmol/LNormal9-17[facility] Cleveland WestComment on above:Performed By: #### CDP #### [address] [address] Medical Representative: MARLENY Brandonalcium [Mass/Vol]8.3 mg/dLLow8.6-10.4[facility] Cleveland WestComment on above:Performed By: #### CDP #### [address] [address] Medical Representative: MARLENY Brandonhloride [Moles/Vol]104 mmol/ZYibshv03-452EulziRegency Hospital Cleveland WestComment on above:Performed By: #### CDP #### [address] [address] Medical Representative: Francisco J Fonseca MDCO2 [Moles/Vol]21 mmol/MTxjpuf27-90NnpnkRegency Hospital Cleveland WestComment on above:Performed By: #### CDP #### [address] [address] Medical Representative: Francisco J Fonseca MDCreatinine [Mass/Vol]0.83 mg/dLNormal0.70-1.20 [facility] Cleveland WestComment on above:Performed By: #### CDP #### [address] [address] Medical Representative: Francisco J Fonseca MDGFR, Amer>60Normal>60[facility] Cleveland WestComment on above:Performed By: #### CDP #### [facility] [place] [address] Medical Representative: Francisco J Fonseca MDGFR,non Amer>60Normal>60[facility] Cleveland WestComment on above:Performed By: #### CDP #### [facility] [address] [place] [address] Medical Representative: Francisco J Fonseca MDGlucose [Mass/Vol]71 mg/pLHvuelo34-43ZaagvBrea Community HospitalComment on above:Performed By: #### CDP #### [facility] [address] [place] [address] Medical Representative: DENISE Brandonotassium [Moles/Vol]4.5 mmol/LNormal3.7-5.3 [facility] Cleveland WestComment on above:Result Comment: SPECIMEN SLIGHTLY HEMOLYZED, RESULTS MAY BE ADVERSELY AFFECTED.Performed By: #### CDP #### [address] [address] Medical Representative: MEIR Brandonodium [Moles/Vol]136 mmol/TNxhjml366-200TmdcrRegency Hospital Cleveland WestComment on above:Performed By: #### CDP #### [facility] [employer] [address] [place] [address] Medical Representative: Francisco J Fonseca MDUrea nitrogen [Mass/Vol]29 mg/dLHigh8-23[facility] Cleveland WestComment on above:Performed By: #### CDP #### [facility] [address] [place] [address] Medical Representative: Francisco J Fonseca [facility] with Diffon [id number]. Basophil0.04 k/uL Normal0.00-0.20[facility] Cleveland WestComment on above:Performed By: #### CDP #### [facility] [employer] [address] [place] [address] Medical Representative: Vidhya Brandon. Eosinophil<0.38Fbiada9.00-0.44[facility] Cleveland WestComment on above:Performed By: #### CDP #### [address] [address] Medical Representative: MDAbs. RomaImm.Granulocyte0.20 k/uLNormal0.00-0.30[facility] Cleveland WestComment on above:Performed By: #### CDP #### [address] [address] Medical Representative: MDAbs. RomaNeutrophil (Seg)18.94 k/uLHigh1.50-8.10[facility] Cleveland WestComment on above:Performed By: #### CDP #### [place] [address] Medical Representative: Frnacisco J Fonseca MDBasophils/100 WBC (Bld)0 %Normal0-2MBrea Community HospitalComment on above:Performed By: #### CDP #### [place] [address] Medical Representative: Francisco J Fonseca MDEosinophils/100 WBC (Bld)0 %Low1-4[facility] WestComment on above:Performed By: #### CDP #### [place] [address] Medical Representative: Francisco J Fonseca MDErythrocyte distribution width (RBC) [Ratio]19.0 %High11.8-14.4[facility] Cleveland WestComment on above:Performed By: #### CDP #### [address] [address] Medical Representative: Francisco J Fonseca MDHematocrit (Bld) [Volume fraction]35.1 %Low 40.7-50.3[facility]et Global Medical CenterComment on above:Performed By: #### CDP #### [address] [address] Medical Representative: Francisco J Fonseca MDHemoglobin (Bld) [Mass/Vol]12.0 g/dLLow13.0-17.0 [facility] Cleveland WestComment on above:Performed By: #### CDP #### [address] [address] Medical Representative: Francisco J Fonseca MDImmature granulocytes/100 WBC (Bld)1 %Eohi0YgelyRegency Hospital Cleveland WestComment on above:Performed By: #### CDP #### [address] [address] Medical Representative: Francisco J Fonseca MDLymphocytes (Bld) [#/Vol]0.89 10*3/uLLow 1.10-3.70[facility] Cleveland WestComment on above:Performed By: #### CDP #### [address] [address] Medical Representative: Jeremie Brandonmphocytes/100 WBC (Bld)4 %Lfd51-20YrijrRegency Hospital Cleveland WestComment on above:Performed By: #### CDP #### [address] [address] Medical Representative: MARK BrandonCH (RBC) [Entitic mass]27.6 dwIqodle61.2-33.5 [facility] WestComment on above:Performed By: #### CDP #### [address] [address] Medical Representative: MARK BrandonCHC (RBC) [Mass/Vol]34.2 g/hWUdqknn07.4-34.8 [facility] Cleveland WestComment on above:Performed By: #### CDP #### [address] [place] [address] Medical Representative: MARK BrandonCV (RBC) [Entitic vol]80.7 fLLow82.6-102.9[facility] Cleveland WestComment on above:Performed By: #### CDP #### [address] [address] Medical Representative: MARK Brandononocytes (Bld) [#/Vol]1.33 10*3/uLHigh0.10-1.20 [facility] Cleveland WestComment on above:Performed By: #### CDP #### [place] [address] Medical Representative: MARK Brandononocytes/100 WBC (Bld)6 %Normal3-12[facility] Cleveland WestComment on above:Performed By: #### CDP #### [place] [address] Medical Representative: Shelli Brandonophil (Seg)89 %Vfbz23-87LhxxnRegency Hospital Cleveland WestComment on above:Performed By: #### CDP #### [address] [address] Medical Representative: Francisco J Fonseca MDNRBC Automated0.0 per 100 WBCNormal0.0[facility] Cleveland WestComment on above:Performed By: #### CDP #### [place] [address] Medical Representative: DENISE Brandonlatelet mean volume (Bld) [Entitic vol]12.3 fL Normal8.1-13.5[facility] Cleveland WestComment on above:Performed By: #### CDP #### [address] [address] Medical Representative: DENISE Brandonlatelets (Bld) [#/Vol]245 10*3/bNYqkvrk730-915 [facility] Cleveland WestComment on above:Performed By: #### CDP #### [address] [address] Medical Representative: YOLA Brandon (Bld) [#/Vol]4.35 10*6/uLNormal4.21-5.77 [facility] Cleveland WestComment on above:Performed By: #### CDP #### [address] [address] Medical Representative: YOLA Brandon morphology finding Nom (Bld)ANISOCYTOSIS PRESENTNoCherrington HospitalComment on above:Result Comment: MICROCYTOSIS PRESENTPerformed By: #### CDP #### [address] [address] Medical Representative: PABLO Brandon (Bld) [#/Vol]21.4 10*3/uLHigh3.5-11.3MBrea Community HospitalComment on above:Performed By: #### CDP #### [address] [address] Medical Representative: Marry Brandon,Urineon [id number],UrineSpecimen Description .INDWELLING CATH URINE Culture NO GROWTH Report Status FINAL 01/04/2022Ohio[facility], MD, Cancer CenterComment on above:Performed By: #### CDP, MELVIN, BMPX, IPF #### [address] [address] Medical Representative: Francisco J Fonseca MDLaboratory - Chemistry and Chemistry - challenge on [id number] gap [Moles/Vol]15 mmol/L9 - 17 mmol/LB[facility] Calcium [Mass/Vol]8.2 mg/dLLow8.6 - 10.4 mg/dLBON SECOURS MERCY HEALTHChloride [Moles/Vol]98 mmol/L98 - 107 mmol/LBON [facility] MERCY HEALTHCO2 [Moles/Vol]23 mmol/L20 - 31 mmol/LB[facility] HEALTHCreatinine [Mass/Vol]0.66 mg/dLLow 0.70 - 1.20 mg/dLBON SECOURS [facility]Y HEALTHGFR/1.73 sq M.predicted MDRD (S/P/Bld) [Vol rate/Area][facility]ON [facility]AN HOSPITALComment on above:Average GFR for 70 or more years old: 75 mL/min/1.73sq m Chronic Kidney Disease: <60 mL/min/1.73sq m Kidney failure: <15 mL/min/1.73sq m eGFR calculated using average adult body mass. Additional eGFR calculator available at: http://www.toucanBox/multiple_crcl_2011.htm Glucose [Mass/Vol]90 mg/dL70 - 99 mg/dLBON SECWILLIS[facility] HEALTHPhosphate [Mass/Vol]1.9 mg/dLLow2.5 - 4.5 mg/dLBON SECWILLIS-[facility] HEALTHPotassium [Moles/Vol]3.7 mmol/L3.7 - 5.3 mmol/LBON SECUNIVERSITY HOSPIT[facility] BEACH[facility] MEDICAL CENTERSodium [Moles/Vol] 136 mmol/L135 - 144 mmol/LBON [facility] DAD Technology LimitedUrea nitrogen (BldV) [Mass/Vol]20 mg/dL8 - 23 mg/dLBON SECUNIVERSITY HOSPITALS BEACHWOOD MEDICAL CENTERMagnesium [Mass/Vol]1.5 mg/dLLow1.6 - 2.6 mg/dLBON SECWILL[facility] DAD Technology LimitedAnion gap [Moles/Vol]12 mmol/L9 - 17 mmol/LBON [facility] HEALTHCalcium [Mass/Vol]8.1 mg/dLLow8.6 - 10.4 mg/dL [facility] DAD Technology LimitedChloride [Moles/Vol]99 mmol/L98 - 107 mmol/LBON [facility] HEALTHCO2 [Moles/Vol]23 mmol/L20 - 31 mmol/LB[facility]ALTH Creatinine [Mass/Vol]0.61 mg/dLLow0.70 - 1.20 mg/dLBON SECWILL[facility] [employer] GFR/1.73 sq M.predicted MDRD (S/P/Bld) [Vol rate/Area][facility] Comment on above:Average GFR for 70 or more years old: 75 mL/min/1.73sq m Chronic Kidney Disease: <60 mL/min/1.73sq m Kidney failure: <15 mL/min/1.73sq m eGFR calculated using average adult body mass. Additional eGFR calculator available at: http://www.toucanBox/Kizoom_crcl_2012.htm Glucose [Mass/Vol]125 mg/xTKvql00 - 99 mg/dLBON [facility]RS MERCY HEALTHPotassium [Moles/Vol]3.4 mmol/LLow3.7 - 5.3 mmol/LB[facility] HEALTHSodium [Moles/Vol]134 mmol/DFgb650 - 144 mmol/LBON [facility]ITALY HEALTHUrea nitrogen (BldV) [Mass/Vol]19 mg/dL8 - 23 mg/dLB[facility] MERCY HEALTHPhosphate [Mass/Vol]2.2 mg/dLLow2.5 - 4.5 mg/dLB[facility] MERCY HEALTHAnion gap [Moles/Vol]13 mmol/L9 - 17 mmol/LB[facility] HEALTHCalcium [Mass/Vol]8.4 mg/dLLow8.6 - 10.4 mg/dLB[facility] MERCY HEALTHChloride [Moles/Vol]101 mmol/L98 - 107 mmol/LB[facility] HEALTHCO2 [Moles/Vol]23 mmol/L20 - 31 mmol/LB[facility] HEALTHCreatinine [Mass/Vol]0.73 mg/dL0.70 - 1.20 mg/dLBON SECOURS OptaHEALTHY HEALTHGFR/1.73 sq M.predicted MDRD (S/P/Bld) [Vol rate/Area][facility] LiiiikeComment on above:Average GFR for 70 or more years old: 75 mL/min/1.73sq m Chronic Kidney Disease: <60 mL/min/1.73sq m Kidney failure: <15 mL/min/1.73sq m eGFR calculated using average adult body mass. Additional eGFR calculator available at: http://www.toucanBox/Kizoom_crcl_2011.htm Glucose [Mass/Vol]124 mg/tTNlnm92 - 99 mg/dLBON [facility] MERCY HEALTHPhosphate [Mass/Vol]2.5 mg/dL2.5 - 4.5 mg/dLB[facility] HEALTHPotassium [Moles/Vol] 3.9 mmol/L3.7 - 5.3 mmol/LBON [facility] HEALTHSodium [Moles/Vol]137 mmol/L 135 - 144 mmol/LBON [facility] MERCY HEALTHUrea nitrogen (BldV) [Mass/Vol]24 mg/dL High8 - 23 mg/dLB[facility] MERCY HEALTHGlucose [Mass/Vol]108 mg/dL75 - 110 mg/dLB[facility] MERCY HEALTHAnion gap [Moles/Vol]12 mmol/L9 - 17 mmol/LB[facility] HEALTHCalcium [Mass/Vol]8.5 mg/dLLow8.6 - 10.4 mg/dLB[facility] HEALTHChloride [Moles/Vol]101 mmol/L98 - 107 mmol/LB[facility]ITALY HEALTHCO2 [Moles/Vol]23 mmol/L20 - 31 mmol/LB[facility]ITALY HEALTHCreatinine [Mass/Vol]0.82 mg/dL0.70 - 1.20 mg/dLB[facility] MERCY HEALTHGFR/1.73 sq M.predicted MDRD (S/P/Bld) [Vol rate/Area]BON [facility]AN HOSPITALComment on above:Average GFR for 70 or more years old: 75 mL/min/1.73sq m Chronic Kidney Disease: <60 mL/min/1.73sq m Kidney failure: <15 mL/min/1.73sq m eGFR calculated using average adult body mass. Additional eGFR calculator available at: http://www.MeetMoi.Octro/multiple_crcl_2012.htm Glucose [Mass/Vol]100 mg/wLPqbl74 - 99 mg/dLB[facility] MERCY HEALTHPhosphate [Mass/Vol]2.7 mg/dL2.5 - 4.5 mg/dLB[facility] HEALTHPotassium [Moles/Vol] 3.9 mmol/L3.7 - 5.3 mmol/LB[facility] HEALTHSodium [Moles/Vol]136 mmol/L 135 - 144 mmol/LBON [facility] MERCY HEALTHUrea nitrogen (BldV) [Mass/Vol]26 mg/dL High8 - 23 mg/dLBON [facility] HEALTHGlucose [Mass/Vol]81 mg/dL75 - 110 mg/dL [facility] HEALTHAnion gap [Moles/Vol]11 mmol/L9 - 17 mmol/LB[facility] HEALTHCalcium [Mass/Vol]8.3 mg/dLLow8.6 - 10.4 mg/dLBON [facility] HEALTHChloride [Moles/Vol]104 mmol/L98 - 107 mmol/LB[facility] HEALTHCO2 [Moles/Vol]21 mmol/L20 - 31 mmol/LB[facility] HEALTHCreatinine [Mass/Vol] 0.83 mg/dL0.70 - 1.20 mg/dLBON [facility] HEALTHGFR/1.73 sq M.predicted MDRD (S/P/Bld) [Vol rate/Area][facility] HOSPITALComment on above:Average GFR for 70 or more years old: 75 mL/min/1.73sq m Chronic Kidney Disease: <60 mL/min/1.73sq m Kidney failure: <15 mL/min/1.73sq m eGFR calculated using average adult body mass. Additional eGFR calculator available at: http://www.toucanBox/multiple_crcl_2011.htm Glucose [Mass/Vol]71 mg/dL70 - 99 mg/dLBON [facility] HEALTHPhosphate [Mass/Vol]3.2 mg/dL2.5 - 4.5 mg/dLB[facility] HEALTHPotassium [Moles/Vol] 4.5 mmol/L3.7 - 5.3 mmol/LBON [facility] HEALTHComment on above:SPECIMEN SLIGHTLY HEMOLYZED, RESULTS MAY BE ADVERSELY AFFECTED.Sodium [Moles/Vol]136 mmol/L135 - 144 mmol/LB[facility] HEALTHUrea nitrogen (BldV) [Mass/Vol]29 mg/dLHigh8 - 23 mg/dLBON [facility] HEALTHLaboratory - Hematology and Cell countson [id number] (Bld) [#/Vol]0.04 10*3/uLBON [facility]RS [facility] HEALTH Basophils/100 WBC (Bld)0 %0 - 2 %[facility] HOSPITALEosinophils/100 WBC (Bld)0 %Low1 - 4 %[facility] HOSPITALHematocrit (Bld) [Volume fraction]35.1 %Low40.7 - 50.3 %[facility] HOSPITALHemoglobin (Bld) [Mass/Vol]12.0 g/dLLow 13.0 - 17.0 g/dLBON [facility]HE[facility] SAM[facility]ITAN HOSPITALImmature granulocytes/100 WBC (Bld)1 % [id number] [facility] HOSPITALLymphocytes/100 WBC (Bld)4 %Low24 - 43 %[facility]AMPUSH (RBC) [Entitic mass]27.6 pg25.2 - 33.5 pgHENRICO DOCTORS' HOSPITAL—HENRICO CAMPUSHC (RBC) [Mass/Vol]34.2 g/dL28.4 - 34.8 g/dLBON SECMADISON HEALTHV (RBC) [Entitic vol]80.7 fLLow82.6 - 102.[address] [facility] Monocytes/100 WBC (Bld)6 %3 - 12 %[facility] HOSPITALPlatelet distribution width (Bld) [Ratio]19.0 %High11.8 - 14.4 %[facility] HOSPITALPlatelet mean volume (Bld) [Entitic vol]12.3 fL8.1 - 13.5 fLSENTARA RMH MEDICAL [facility]ENTER HEALTHPlatelets (Bld) [#/Vol]245 10*3/uLCARILION CLINIC ST. ALBANS HOSPITALRBC (Bld) [#/Vol]4.35 10*6/uL 4.21 - 5.77 m/uLCARILION CLINIC ST. ALBANS HOSPITALRBC (Bld) [#/Vol]ANISOCYTOSIS PRESENTCARILION CLINIC ST. ALBANS HOSPITALComment on above:MICROCYTOSIS PRESENTSegmented neutrophils/100 WBC (Bld)89 %High36 - 65 %[facility] ALBANS HOSPITALWBC (Bld) [#/Vol]21.4 10*3/uLHighCARILION CLINIC ST. ALBANS HOSPITALLaboratory - Microbiology and Antimicrobial susceptibilityon [id number] identified Cx Nom (U)NO GROWTH [facility] HOSPITALMagnesiumon [id number] [Mass/Vol]1.5 mg/dLLow 1.6-2.6[facility] Global Medical CenterComment on above:Performed By: #### CDP, MELVIN, BMPX, IPF #### [facility] [address] [place] [address] Medical Representative: Maggie Brandon Panel Informationon [id number] >60>60 mL/minBON SECOURS MERCY HEALTHGFR Non->60>60 mL/minB[facility]RS MERCY HEALTHInterpretation and review of laboratory results AbnormalBON SECOURS MERCY HEALTHB[facility] HEALTHInterpretation and review of laboratory resultsAbnormalB[facility] MERCY HEALTHB[facility] MERCY HEALTHGFR >60>60 mL/minB[facility]RS MERCY HEALTHGFR Non->60>60 mL/minB[facility]RS MERCY HEALTHInterpretation and review of laboratory resultsAbnormalB[facility] MERCY HEALTHB[facility] Interpretation and review of laboratory resultsAbnormalB[facility] HEALTH B[facility]CY HEALTHGFR >60>60 mL/minB[facility] MERCY HEALTHGFR Non->60>60 mL/minB[facility] MERCY [facility]ALTH Interpretation and review of laboratory resultsAbnormalBON SECOU[facility] MERCY HEALTH BON SECOURS [facility]ALTHGFR >60>60 mL/minBON SECOURS MERCY HEALTHGFR Non->60>60 mL/minBON SECOURS MERCY HEALTHInterpretation and review of laboratory resultsAbnormalBON SECOURS MERCY HEALTHB[facility] HEALTHB[facility] HEALTHGFR >60>60 mL/minBON SECOURS MERCY HEALTHGFR Non->60>60 mL/minBON SECOURS MERCY HEALTHInterpretation and review of laboratory resultsAbnormalBON SECOURS MERCY HEALTHB[facility] HEALTHAbsolute Eos #<0.03[facility] HEALTHAbsolute Immature Granulocyte0.20[facility] HEALTHAbsolute Lymph # 0.89LowBON SECOURS MERCY HEALTHAbsolute [place] #1.33HighB[facility] SECOURS MER[facility] HEALTH Interpretation and review of laboratory resultsAbnormalB[facility] SEC[facility] NRBC Automated0.00.0 per 100 WBCBON TRIHEALTH GOOD SAMARIT[facility] HOSPITALSegs Kttfeewm12.94High [facility] CENTERSpecimen Description.INDWELLING CATH URINEBON SAME DAY SURGERY CENTERPhosphorus, Inorg.on [id number], Inorg.2.2 mg/dLLow2.5-4.5[facility] Comment on above:Performed By: #### CDP, MELVIN, BMPX, IPF #### [employer] [address] [place] [address] Medical Representative: Francisco J Fonseca MDPhosphorus, Inorg.2.5 mg/dLNormal2.5-4.5[facility] WestComment on above:Performed By: #### CDP, MELVIN, BMPX, IPF #### [employer] [address] [place] [address] Medical Representative: DENISE Brandonhosphorus, Inorg.2.7 mg/dLNormal2.5-4.5[facility] WestComment on above:Performed By: #### BMPX, MELVIN #### [facility] [address] [place] [address] Medical Representative: DENISE Brandonhosphorus, Inorg.3.2 mg/dLNormal2.5-4.5[facility] WestComment on above:Performed By: #### CDP #### [facility] [address] [place] [address] Medical Representative: Rubina Brandon Metab w/rfx MGon 01-03-2022(cont.)Normal [facility] WestComment on above:Result Comment: Average GFR for 70 or more years old: 75 mL/min/1.73sq m Chronic Kidney Disease: <60 mL/min/1.73sq m Kidney failure: <15 mL/min/1.73sq m eGFR calculated using average adult body mass. Additional eGFR calculator available at: http://www.MeetMoi.com/multiple_crcl_2012.htmPerformed By: #### CDP, MELVIN, BMPX, IPF #### [facility] [address] [place] [address]3 Medical Representative: Francisco J Fonseca MDAnion gap [Moles/Vol]12 mmol/LNormal9-17[facility] WestComment on above:Performed By: #### CDP, MELVIN, BMPX, IPF #### [facility] [address] [place] [address] Medical Representative: Francisco J Fonseca MDCalcium [Mass/Vol]8.3 mg/dLLow8.6-10.4[facility] WestComment on above:Performed By: #### CDP, MELVIN, BMPX, IPF #### [address] [address] Medical Representative: Francisco J Fonseca MDChloride [Moles/Vol]102 mmol/HOmcyiq03-245JprorRegency Hospital Cleveland WestComment on above:Performed By: #### CDP, MELVIN, BMPX, IPF #### [facility] [address] [place] [address]47 Medical Representative: Francisco J Fonseca MDCO2 [Moles/Vol]21 mmol/NMkmvkq37-69LmgsiRegency Hospital Cleveland WestComment on above:Performed By: #### CDP, MELVIN, BMPX, IPF #### [facility] [address] [place] [address] Medical Representative: Francisco J Fonseca MDCreatinine [Mass/Vol]0.88 mg/dLNormal0.70-1.20 [facility] WestComment on above:Performed By: #### CDP, MELVIN, BMPX, IPF #### [facility] [address] [place] [address]89 Medical Representative: Francisco J Fonseca MDGFR, Amer>60Normal>60[facility] WestComment on above:Performed By: #### CDP, MELVIN, BMPX, IPF #### [facility] [address] [place] [address] 27029 Medical Representative: Francisco J Fonseca MDGFR,non Amer>60Normal>60[facility] WestComment on above:Performed By: #### CDP, MELVIN, BMPX, IPF #### [facility] [address] [place] [address]652 Medical Representative: Francisco J Fonseca MDGlucose [Mass/Vol]74 mg/sEZxwkrs39-13LfqacBrea Community HospitalComment on above:Performed By: #### CDP, MELVIN, BMPX, IPF #### [address] [address] Medical Representative: Francisco J Fonseca MDPotassium [Moles/Vol]4.2 mmol/LNormal3.7-5.3 [facility] WestComment on above:Performed By: #### CDP, MELVIN, BMPX, IPF #### [address] [address] Medical Representative: Francisco J Fonseca MDSodium [Moles/Vol]135 mmol/IXihgrg797-717JvzrtRegency Hospital Cleveland WestComment on above:Performed By: #### CDP, MELVIN, BMPX, IPF #### [facility] [address] [place] [address]246 Medical Representative: Francisco J Fonseca MDUrea nitrogen [Mass/Vol]29 mg/dLHigh8-23[facility] WestComment on above:Performed By: #### CDP, MELVIN, BMPX, IPF #### [facility] [address] [place] [address] Medical Representative: Francisco J Fonseca MD(cont.)[facility] Comment on above:Result Comment: Average GFR for 70 or more years old: 75 mL/min/1.73sq m Chronic Kidney Disease: <60 mL/min/1.73sq m Kidney failure: <15 mL/min/1.73sq m eGFR calculated using average adult body mass. Additional eGFR calculator available at: http://www.MeetMoi.Octro/multiple_crcl_2012.htmPerformed By: #### CDP #### [facility] [address] [place] [address] Medical Representative: Francisco J Fonseca MDAnion gap [Moles/Vol]12 mmol/LNormal9-17[facility] WestComment on above:Performed By: #### CDP #### [facility] [address] [place] [address] Medical Representative: MARLENY Brandonalcium [Mass/Vol]8.4 mg/dLLow8.6-10.4[facility] WestComment on above:Performed By: #### CDP #### [facility] [address] [place] [address]86 Medical Representative: MARLENY Brandonhloride [Moles/Vol]103 mmol/IZkjdak02-449GrydnRegency Hospital Cleveland WestComment on above:Performed By: #### CDP #### [facility] [address] [place] [address] Medical Representative: Francisco J Fonseca MDCO2 [Moles/Vol]21 mmol/XBuwjit75-64MepvrRegency Hospital Cleveland WestComment on above:Performed By: #### CDP #### [facility] [address] [place] [address] 65534 Medical Representative: MARLENY Brandonreatinine [Mass/Vol]0.93 mg/dLNormal0.70-1.20 [facility] WestComment on above:Performed By: #### CDP #### [facility] [address] [place] [address] 05657 Medical Representative: Francisco J Fonseca MDGFR, Amer>60Normal>60[facility] WestComment on above:Performed By: #### CDP #### [address] [address] Medical Representative: Francisco J Fonseca MDGFR,non Amer>60Normal>60[facility] WestComment on above:Performed By: #### CDP #### [address] [address] Medical Representative: Francisco J Fonseca MDGlucose [Mass/Vol]155 mg/lSPtsi05-82SxwlpBrea Community HospitalComment on above:Performed By: #### CDP #### [address] [address] Medical Representative: DENISE Brandonotassium [Moles/Vol]3.9 mmol/LNormal3.7-5.3 [facility] WestComment on above:Performed By: #### CDP #### [address] [address] Medical Representative: MEIR Brandonodium [Moles/Vol]136 mmol/WZwenqc617-534HqxgwRegency Hospital Cleveland WestComment on above:Performed By: #### CDP #### [address] [address] Medical Representative: Francisco J Fonseca MDUrea nitrogen [Mass/Vol]28 mg/dLHigh8-23[facility] WestComment on above:Performed By: #### CDP #### [address] [address] Medical Representative: Francisco J Fonseca MD(cont.)[facility] Comment on above:Result Comment: Average GFR for 70 or more years old: 75 mL/min/1.73sq m Chronic Kidney Disease: <60 mL/min/1.73sq m Kidney failure: <15 mL/min/1.73sq m eGFR calculated using average adult body mass. Additional eGFR calculator available at: http://www.MeetMoi.Octro/multiple_crcl_2012.htmPerformed By: #### CDP, MELVIN, BMPX, IPF #### [facility] [address] [place] [address] 82046 Medical Representative: Francisco J Fonseca MDAnion gap [Moles/Vol]11 mmol/LNormal9-17[facility] WestComment on above:Performed By: #### CDP, MELVIN, BMPX, IPF #### [address] [address] Medical Representative: Francisco J Fonseca MDCalcium [Mass/Vol]8.4 mg/dLLow8.6-10.4[facility] WestComment on above:Performed By: #### CDP, MELVIN, BMPX, IPF #### [facility] [address] [place] [address] Medical Representative: Francisco J Fonseca MDChloride [Moles/Vol]103 mmol/JAwchef62-187QjjguRegency Hospital Cleveland WestComment on above:Performed By: #### CDP, MELVIN, BMPX, IPF #### [facility] [address] [place] [address] Medical Representative: Francisco J Fonseca MDCO2 [Moles/Vol]24 mmol/BZnsele88-20JqnboRegency Hospital Cleveland WestComment on above:Performed By: #### CDP, MELVIN, BMPX, IPF #### [facility] [address] [place] [address]23 Medical Representative: Francisco J Fonseca MDCreatinine [Mass/Vol]0.92 mg/dLNormal0.70-1.20 [facility] WestComment on above:Performed By: #### CDP, MELVIN, BMPX, IPF #### [facility] [address] [place] [address] 36560 Medical Representative: Francisco J Fonseca MDGFR, Amer>60Normal>60[facility] WestComment on above:Performed By: #### CDP, MELVIN, BMPX, IPF #### [facility] [address] [place] [address] Medical Representative: Francisco J Fonseca MDGFR,non Amer>60Normal>60[facility] WestComment on above:Performed By: #### CDP, MELVIN, BMPX, IPF #### [facility] [address] [place] [address] 29764 Medical Representative: Francisco J Fonseca MDGlucose [Mass/Vol]226 mg/lAWxet05-61ZitvuBrea Community HospitalComment on above:Performed By: #### CDP, MELVIN, BMPX, IPF #### [facility] [address] [place] [address] 28795 Medical Representative: Francisco J Fonseca, MDPotassium [Moles/Vol]5.0 mmol/LNormal3.7-5.3 [facility] WestComment on above:Performed By: #### CDP, MELVIN, BMPX, IPF #### [facility] [address] [place] [address] 26310 Medical Representative: Francisco J Fonseca MDSodium [Moles/Vol]138 mmol/VUhcvhz297-793AowsfRegency Hospital Cleveland WestComment on above:Performed By: #### CDP, MELVIN, BMPX, IPF #### [facility] [address] [place] [address]992 Medical Representative: Francisco J Fonseca MDUrea nitrogen [Mass/Vol]26 mg/dLHigh8-23[facility] WestComment on above:Performed By: #### CDP, MELVIN, BMPX, IPF #### [facility] [address] [place] [address]459 Medical Representative: Francisco J Fonseca MD(cont.)NormalRegency Hospital [facility] Comment on above:Result Comment: Average GFR for 70 or more years old: 75 mL/min/1.73sq m Chronic Kidney Disease: <60 mL/min/1.73sq m Kidney failure: <15 mL/min/1.73sq m eGFR calculated using average adult body mass. Additional eGFR calculator available at: http://www.MeetMoi.Octro/multiple_crcl_2012.htmPerformed By: #### CDP, MELVIN, BMPX, IPF #### [facility] [address] [place] [address]04 Medical Representative: Francisco J Fonseca MDAnion gap [Moles/Vol]13 mmol/LNormal9-17[facility] WestComment on above:Performed By: #### CDP, MELVIN, BMPX, IPF #### [facility] [address] [place] [address]650 Medical Representative: MARLENY Brandonalcium [Mass/Vol]8.4 mg/dLLow8.6-10.4[facility] WestComment on above:Performed By: #### CDP, MELVIN, BMPX, IPF #### [facility] [address] [place] [address]139 Medical Representative: Francisco J Fonseca MDChloride [Moles/Vol]104 mmol/DFyccdx18-674BgiqgRegency Hospital Cleveland WestComment on above:Performed By: #### CDP, MELVIN, BMPX, IPF #### [facility] [address] [place] [address] 6[address]67 Medical Representative: Francisco J Fonseca MDCO2 [Moles/Vol]21 mmol/XGnltls73-37FggasRegency Hospital Cleveland WestComment on above:Performed By: #### CDP, MELVIN, BMPX, IPF #### [facility] [address] [place] [address] 43728 Medical Representative: Francisco J Fonseca MDCreatinine [Mass/Vol]0.84 mg/dLNormal0.70-1.20 [facility] WestComment on above:Performed By: #### CDP, MELVIN, BMPX, IPF #### [facility] [address] [place] [address] 00335 Medical Representative: Francisco J Fonseca MDGFR, Amer>60Normal>60[facility] Medical CenterComment on above:Performed By: #### CDP, MELVIN, BMPX, IPF #### [address] [address] Medical Representative: Francisco J Fonseca MDGFR,non Amer>60Normal>60[facility] WestComment on above:Performed By: #### CDP, MELVIN, BMPX, IPF #### [address] [address] Medical Representative: Francisco J Fonseca MDGlucose [Mass/Vol]176 mg/lNEfsb18-79BwugxNaval Hospital OaklandComment on above:Performed By: #### CDP, MELVIN, BMPX, IPF #### [place] [address] Medical Representative: Francisco J Fonseca MDPotassium [Moles/Vol]4.5 mmol/LNormal3.7-5.3 [facility] WestComment on above:Performed By: #### CDP, MELVIN, BMPX, IPF #### [address] [address] Medical Representative: Francisco J Fonseca MDSodium [Moles/Vol]138 mmol/CYcluvl725-962LlzysRegency Hospital Cleveland WestComment on above:Performed By: #### CDP, MELVIN, BMPX, IPF #### [address] [address] Medical Representative: Francisco J Fonseca MDUrea nitrogen [Mass/Vol]21 mg/dLNormal8-23[facility] WestComment on above:Performed By: #### CDP, MELVIN, BMPX, IPF #### [facility] [address] [place] [address] Medical Representative: Francisco J Fonseca MD(cont.)[facility] Comment on above:Result Comment: Average GFR for 70 or more years old: 75 mL/min/1.73sq m Chronic Kidney Disease: <60 mL/min/1.73sq m Kidney failure: <15 mL/min/1.73sq m eGFR calculated using average adult body mass. Additional eGFR calculator available at: http://www.MeetMoi.Octro/multiple_crcl_2012.htmPerformed By: #### CDP, MELVIN, BMPX, IPF #### [employer] [address] [place] [address]502 Medical Representative: Francisco J Fonseca MDAnion gap [Moles/Vol]6 mmol/LLow9-17[facility] WestComment on above:Performed By: #### CDP, MELVIN, BMPX, IPF #### [facility] [address] [place] [address] Medical Representative: Francisco J Fonseca MDCalcium [Mass/Vol]8.5 mg/dLLow8.6-10.4[facility] WestComment on above:Performed By: #### CDP, MELVIN, BMPX, IPF #### [employer] [address] [place] [address] 24865 Medical Representative: Francisco J Fonseca MDChloride [Moles/Vol]105 mmol/XWliktj17-145RswurRegency Hospital Cleveland WestComment on above:Performed By: #### CDP, MELVIN, BMPX, IPF #### [employer] [address] [place] [address]26 Medical Representative: Francisco J Fonseca MDCO2 [Moles/Vol]25 mmol/EFujowi77-17DttaqRegency Hospital Cleveland WestComment on above:Performed By: #### CDP, MELVIN, BMPX, IPF #### [employer] [address] [place] [address]35 Medical Representative: MARLENY Brandonreatinine [Mass/Vol]0.75 mg/dLNormal0.70-1.20 [facility] WestComment on above:Performed By: #### CDP, MELVIN, BMPX, IPF #### [address] [address] Medical Representative: Francisco J Fonseca MDGFR, Amer>60Normal>60MerLittle Company of Mary HospitalComment on above:Performed By: #### CDP, MELVIN, BMPX, IPF #### [address] [address] Medical Representative: ARTURO Brandon,non Amer>60Normal>60[facility] Medical CenterComment on above:Performed By: #### CDP, MELVIN, BMPX, IPF #### [address] [address] Medical Representative: Francisco J Fonseca MDGlucose [Mass/Vol]81 mg/hLPgrqht07-60StdwqBrea Community HospitalComment on above:Performed By: #### CDP, MELVIN, BMPX, IPF #### [address] [address] Medical Representative: Francisco J Fonseca MDPotassium [Moles/Vol]4.6 mmol/LNormal3.7-5.3 [facility] WestComment on above:Performed By: #### CDP, MELVIN, BMPX, IPF #### [address] [address] Medical Representative: Francisco J Fonseca MDSodium [Moles/Vol]136 mmol/PNrduaa474-748LxoyfRegency Hospital Cleveland WestComment on above:Performed By: #### CDP, MELVIN, BMPX, IPF #### [facility] [facility] [address] [place] [address] Medical Representative: Francisco J Fonseca MDUrea nitrogen [Mass/Vol]18 mg/dLNormal8-23[facility] WestComment on above:Performed By: #### CDP, MELVIN, BMPX, IPF #### [address] [address] Medical Representative: MARLENY Brandon with Diffon [id number]. Basophil0.00 k/uL Normal0.0-0.2MBrea Community HospitalComment on above:Performed By: #### CDP #### [address] [address] Medical Representative: Vidhya Brandon.Imm.Granulocyte0.00 k/uLNormal0.00-0.30[facility] WestComment on above:Performed By: #### CDP #### [address] [address] Medical Representative: Vidhya Brandon.Neutrophil (Seg)19.89 k/uLHigh1.8-7.7[facility] WestComment on above:Performed By: #### CDP #### [address] [address] Medical Representative: Francisco J Fonseca MDBasophils/100 WBC (Bld)0 %Normal0-2MBrea Community HospitalComment on above:Performed By: #### CDP #### [address] [address] Medical Representative: Francisco J Fonseca MDEosinophils (Bld) [#/Vol]0.00 10*3/uLNormal 0.0-0.4[facility] WestComment on above:Performed By: #### CDP #### [address] [address] Medical Representative: Francisco J Madoff, MDEosinophils/100 WBC (Bld)0 %Low1-4[facility] WestComment on above:Performed By: #### CDP #### [address] [address] Medical Representative: Francisco J Fonseca MDImmature granulocytes/100 WBC (Bld)0 %Normal0 [facility] WestComment on above:Performed By: #### CDP #### [address] [address] Medical Representative: Francisco J Fonseca MDLymphocytes (Bld) [#/Vol]0.88 10*3/uLLow1.0-4.8 [facility] WestComment on above:Performed By: #### CDP #### [address] [address] Medical Representative: Francisco J Fonseca MDLymphocytes/100 WBC (Bld)4 %Mef00-11HqacfRegency Hospital Cleveland WestComment on above:Performed By: #### CDP #### [address] [address] Medical Representative: MARK Brandononocytes (Bld) [#/Vol]1.33 10*3/uLHigh0.1-0.8 [facility] WestComment on above:Performed By: #### CDP #### [address] [address] Medical Representative: Francisco J Fonseca MDMonocytes/100 WBC (Bld)6 %Normal1-7[facility] WestComment on above:Performed By: #### CDP #### [address] [address] Medical Representative: Francisco J Fonseca MDMorphology Walter (Bld) [Interp]MICROCYTOSIS PRESENTNormalRegency Hospital Cleveland WestComment on above:Result Comment: ANISOCYTOSIS PRESENT 1+ ACANTHOCYTESPerformed By: #### CDP #### [address] [address] Medical Representative: Francisco J Fonseca MDNeutrophil (Seg)90 %Gkeb17-21CxehkRegency Hospital Cleveland WestComment on above:Performed By: #### CDP #### [address] [address] Medical Representative: Francisco J Fonseca MDErythrocyte distribution width (RBC) [Ratio]18.9 %High11.8-14.4[facility] WestComment on above:Performed By: #### CDP #### [address] [address] Medical Representative: Francisco J Fonseca MDHematocrit (Bld) [Volume fraction]37.4 %Low 40.7-50.3MBrea Community HospitalComment on above:Performed By: #### CDP #### [address] [address] Medical Representative: Francisco J Fonseca MDHemoglobin (Bld) [Mass/Vol]12.2 g/dLLow13.0-17.0 [facility] WestComment on above:Performed By: #### CDP #### [address] [address] Medical Representative: MARK BrandonCH (RBC) [Entitic mass]26.9 vuFjzowu07.2-33.5 [facility] WestComment on above:Performed By: #### CDP #### [address] [address] Medical Representative: MARK BrandonCHC (RBC) [Mass/Vol]32.6 g/sPYjmhcn23.4-34.8 [facility] WestComment on above:Performed By: #### CDP #### [address] [place] [address] Medical Representative: MARK BrandonCV (RBC) [Entitic vol]82.4 fLLow82.6-102.9[facility] WestComment on above:Performed By: #### CDP #### [address] [address] Medical Representative: SONIA Brandon Automated0.0 per 100 WBCNormal0.0[facility] WestComment on above:Performed By: #### CDP #### [address] [address] Medical Representative: Meera Brandon mean volume (Bld) [Entitic vol]12.6 fL Normal8.1-13.5[facility] WestComment on above:Performed By: #### CDP #### [address] [address] Medical Representative: Cade Brandon (Bld) [#/Vol]292 10*3/hKWmwdrd488-538 [facility] WestComment on above:Performed By: #### CDP #### [address] [address] Medical Representative: YOLA Brandon (Bld) [#/Vol]4.54 10*6/uLNormal4.21-5.77 [facility] WestComment on above:Performed By: #### CDP #### [address] [address] Medical Representative: PABLO Brandon (Bld) [#/Vol]22.1 10*3/uLHigh3.5-11.3MBrea Community HospitalComment on above:Performed By: #### CDP #### [address] [address] Medical Representative: Francisco J Fonseca MDHemoglobin A1Con 59-16-7251Hdbcrho [Mass/Vol]223 mg/dLNormalRegency Hospital Cleveland WestComment on above:Result Comment: The ADA and AACC recommend providing the estimated average glucose result to permit better patient understanding of their HBA1c result.Performed By: #### CDP, MELVIN, BMPX, IPF #### [facility] [address] [place] [address] Medical Representative: Francisco J Fonseca MDHbA1c (Bld) [Mass fraction]9.4 %High4.0-6.0[facility] Cleveland WestComment on above:Performed By: #### CDP, MELVIN, BMPX, IPF #### [facility] [address] [place] [address] Medical Representative: Francisco J Fonseca MDLaboratory - Chemistry and Chemistry - challenge on 05-37-4559Jkdyl gap [Moles/Vol]12 mmol/L9 - 17 mmol/LBON Liii[facility] Calcium [Mass/Vol]8.3 mg/dLLow8.6 - 10.4 mg/dLBON SECPlastioChloride [Moles/Vol]102 mmol/L98 - 107 mmol/LBON SECPlastioCO2 [Moles/Vol]21 mmol/L20 - 31 mmol/LBON SECPlastioCreatinine [Mass/Vol]0.88 mg/dL0.70 - 1.20 mg/dLBON SECPlastioGFR/1.73 sq M.predicted MDRD (S/P/Bld) [Vol rate/Area]BON [facility] WEBB MEDICAL CENTERPlastioComment on above:Average GFR for 70 or more years old: 75 mL/min/1.73sq m Chronic Kidney Disease: <60 mL/min/1.73sq m Kidney failure: <15 mL/min/1.73sq m eGFR calculated using average adult body mass. Additional eGFR calculator available at: http://www.MeetMoi.Octro/multiple_crcl_2012.htm Glucose [Mass/Vol]74 mg/dL70 - 99 mg/dLBON SECNovetas Solutions HEALTHPhosphate [Mass/Vol]3.3 mg/dL2.5 - 4.5 mg/dLBON TRIHE[facility] SAMARITAN HOSPITALPotassium [Moles/Vol] 4.2 mmol/L3.7 - 5.3 mmol/LBON TRI[facility] GOOD SAMARITAN HOSPITALSodium [Moles/Vol]135 mmol/L 135 - 144 mmol/LBON [facility] SAMARITAN HOSPITALUrea nitrogen (BldV) [Mass/Vol]29 mg/dL High8 - 23 mg/dLBON [facility] HEALTHGlucose [Mass/Vol]69 mg/dLLow75 - 110 mg/dLBON [facility] HEALTHGlucose [Mass/Vol]93 mg/dL75 - 110 mg/dLBON [facility] SAMARITAN HOSPITALGlucose [Mass/Vol]55 mg/dLLow75 - 110 mg/dLBON [facility] Comment on above:Critical NotedGlucose [Mass/Vol]88 mg/dL75 - 110 mg/dLBON TRIHEALTH GOOD SAMARITAN HOSPITALAnion gap [Moles/Vol]12 mmol/L9 - 17 mmol/LBON [facility] SAMARITAN HOSPITALCalcium [Mass/Vol]8.4 mg/dLLow8.6 - 10.4 mg/dLBON [facility] Chloride [Moles/Vol]103 mmol/L98 - 107 mmol/LBON [facility] SAMARITAN HOSPITALCO2 [Moles/Vol]21 mmol/L20 - 31 mmol/LBON [facility]ARITAN HOSPITALCreatinine [Mass/Vol] 0.93 mg/dL0.70 - 1.20 mg/dLBON TRIHEALTH GOOD SAMARITAN HOSPITALGFR/1.73 sq M.predicted MDRD (S/P/Bld) [Vol rate/Area]BON [facility]ITAN HOSPITALComment on above:Average GFR for 70 or more years old: 75 mL/min/1.73sq m Chronic Kidney Disease: <60 mL/min/1.73sq m Kidney failure: <15 mL/min/1.73sq m eGFR calculated using average adult body mass. Additional eGFR calculator available at: http://www.toucanBox/multiple_crcl_2012.htm Glucose [Mass/Vol]155 mg/jVOoti48 - 99 mg/dLBON [facility] HEALTHPhosphate [Mass/Vol]2.9 mg/dL2.5 - 4.5 mg/dLBON [facility] HEALTHPotassium [Moles/Vol] 3.9 mmol/L3.7 - 5.3 mmol/LBON [facility] HEALTHSodium [Moles/Vol]136 mmol/L 135 - 144 mmol/LBON SECOURS [facility]Y HEALTHUrea nitrogen (BldV) [Mass/Vol]28 mg/dL High8 - 23 mg/dLBON [facility] MERCY HEALTHGlucose [Mass/Vol]152 mg/vJFihs40 - 110 mg/dLBON [facility] HEALTHGlucose [Mass/Vol]216 mg/fTYlmx88 - 110 mg/dLB[facility] HEALTHGlucose [Mass/Vol]242 mg/rJVenn89 - 110 mg/dLB[facility] HEALTHGlucose [Mass/Vol]243 mg/eKMkni84 - 110 mg/dLBON [facility] HEALTHAnion gap [Moles/Vol]11 mmol/L9 - 17 mmol/LBON [facility] HEALTHCalcium [Mass/Vol]8.4 mg/dLLow8.6 - 10.4 mg/dLBON [facility] HEALTHChloride [Moles/Vol]103 mmol/L98 - 107 mmol/LBON [facility] HEALTHCO2 [Moles/Vol]24 mmol/L20 - 31 mmol/LBON [facility]Y HEALTHCreatinine [Mass/Vol]0.92 mg/dL0.70 - 1.20 mg/dLBON [facility] MERCY HEALTHGFR/1.73 sq M.predicted MDRD (S/P/Bld) [Vol rate/Area][facility] HOSPITALComment on above:Average GFR for 70 or more years old: 75 mL/min/1.73sq m Chronic Kidney Disease: <60 mL/min/1.73sq m Kidney failure: <15 mL/min/1.73sq m eGFR calculated using average adult body mass. Additional eGFR calculator available at: http://www.toucanBox/multiple_crcl_2012.htm Glucose [Mass/Vol]226 mg/lBUejv11 - 99 mg/dLBON [facility]RS MERCY HEALTHPhosphate [Mass/Vol]3.5 mg/dL2.5 - 4.5 mg/dLB[facility] HEALTHPotassium [Moles/Vol] 5.0 mmol/L3.7 - 5.3 mmol/LBON [facility] HEALTHSodium [Moles/Vol]138 mmol/L 135 - 144 mmol/LBON [facility] HEALTHUrea nitrogen (BldV) [Mass/Vol]26 mg/dL High8 - 23 mg/dLB[facility] HEALTHGlucose [Mass/Vol]214 mg/dYQsvy51 - 110 mg/dLBON [facility] HEALTHAnion gap [Moles/Vol]13 mmol/L9 - 17 mmol/LBON [facility] HEALTHCalcium [Mass/Vol]8.4 mg/dLLow8.6 - 10.4 mg/dLBON [facility] HEALTHChloride [Moles/Vol]104 mmol/L98 - 107 mmol/LBON [facility] HEALTHCO2 [Moles/Vol]21 mmol/L20 - 31 mmol/LBON [facility] HEALTHCreatinine [Mass/Vol]0.84 mg/dL0.70 - 1.20 mg/dLBON [facility] HEALTHGFR/1.73 sq M.predicted MDRD (S/P/Bld) [Vol rate/Area][facility] HOSPITALComment on above:Average GFR for 70 or more years old: 75 mL/min/1.73sq m Chronic Kidney Disease: <60 mL/min/1.73sq m Kidney failure: <15 mL/min/1.73sq m eGFR calculated using average adult body mass. Additional eGFR calculator available at: http://www.MeetMoi.Octro/multiple_crcl_2011.htm Glucose [Mass/Vol]176 mg/bMYcyb02 - 99 mg/dLBON [facility] HEALTHPhosphate [Mass/Vol]3.1 mg/dL2.5 - 4.5 mg/dLB[facility] HEALTHPotassium [Moles/Vol] 4.5 mmol/L3.7 - 5.3 mmol/LBON [facility] HEALTHSodium [Moles/Vol]138 mmol/L 135 - 144 mmol/LBON [facility] HEALTHUrea nitrogen (BldV) [Mass/Vol]21 mg/dL8 - 23 mg/dLBON [facility] HEALTHGlucose [Mass/Vol]126 mg/lAWpno35 - 110 mg/dL [facility] HEALTHGlucose [Mass/Vol]165 mg/iYIqpj21 - 110 mg/dLBON [facility] HEALTHGlucose [Mass/Vol]142 mg/lAIwru48 - 110 mg/dLBON [facility] HEALTHGlucose [Mass/Vol]89 mg/dL75 - 110 mg/dLBON [facility] HEALTHGlucose [Mass/Vol]71 mg/dLLow75 - 110 mg/dLBON [facility] HEALTHGlucose [Mass/Vol]82 mg/dL75 - 110 mg/dLBON [facility] HEALTHGlucose [Mass/Vol]128 mg/mYOgcg81 - 110 mg/dLBON SECUNIV[facility] MEDICAL CENTERAnion gap [Moles/Vol]6 mmol/LLow9 - 17 mmol/L [facility] HOSPITALCalcium [Mass/Vol]8.5 mg/dLLow8.6 - 10.4 mg/dLBON SECW[facility] HEALTHChloride [Moles/Vol]105 mmol/L98 - 107 mmol/LBON [facility]AN HOSPITALCO2 [Moles/Vol]25 mmol/L20 - 31 mmol/LB[facility] Creatinine [Mass/Vol]0.75 mg/dL0.70 - 1.20 mg/dLBON [facility]HE[facility] SAM[facility]ITAN HOSPITALGFR/1.73 sq M.predicted MDRD (S/P/Bld) [Vol rate/Area][facility] HOSPITALComment on above:Average GFR for 70 or more years old: 75 mL/min/1.73sq m Chronic Kidney Disease: <60 mL/min/1.73sq m Kidney failure: <15 mL/min/1.73sq m eGFR calculated using average adult body mass. Additional eGFR calculator available at: http://www.MeetMoi.Octro/multiple_crcl_2012.htm Glucose [Mass/Vol]81 mg/dL70 - 99 mg/dLBON [facility] HEALTHPhosphate [Mass/Vol]2.5 mg/dL2.5 - 4.5 mg/dLBON [facility] HOSPITALPotassium [Moles/Vol] 4.6 mmol/L3.7 - 5.3 mmol/LBON SECW[facility] HEALTHSodium [Moles/Vol]136 mmol/L 135 - 144 mmol/LBON [facility]CY HEALTHUrea nitrogen (BldV) [Mass/Vol]18 mg/dL8 - 23 mg/dLBON TRIHEALTH GOOD SAMARITAN HOSPITALGlucose [Mass/Vol]187 mg/qBZrut87 - 110 mg/dL [facility] HOSPITALLaboratory - Hematology and Cell countson 01-03-2022 Basophils (Bld) [#/Vol]0.00 10*3/uLBON [facility] SAM[facility]ITAN HOSPITALBasophils/100 WBC (Bld)0 %0 - 2 %[facility] HOSPITALEosinophils/100 WBC (Bld)0 %Low1 - 4 %[facility] HOSPITALHematocrit (Bld) [Volume fraction]37.4 %Low40.7 - 50.3 %[facility] HOSPITALHemoglobin (Bld) [Mass/Vol]12.2 g/dLLow13.0 - 17.0 g/dLBON [facility]AN HOSPITALImmature granulocytes/100 WBC (Bld)0 %0BON [facility] SAM[facility]ITAN HOSPITALLymphocytes/100 WBC (Bld)4 %Low24 - 44 %[facility]AMPUSH (RBC) [Entitic mass]26.9 pg25.2 - 33.5 pgHENRICO DOCTORS' HOSPITAL—HENRICO CAMPUSHC (RBC) [Mass/Vol] 32.6 g/dL28.4 - 34.8 g/dLBON [facility] HOSPITALV (RBC) [Entitic vol]82.4 fL Low82.6 - 102.[address] ALBANS HOSPITALMonocytes/100 WBC (Bld)6 %1 - 7 %[facility] HOSPITALMorphology Walter (Bld) [Interp]MICROCYTOSIS PRESENTCARILION CLINIC ST. ALBANS HOSPITALMorphology Walter (Bld) [Interp]ANISOCYTOSIS PRESENTCARILION CLINIC ST. ALBANS HOSPITALMorphology Walter (Bld) [Interp]1+ ACANTHOCYTESCARILION CLINIC ST. ALBANS HOSPITAL Platelet distribution width (Bld) [Ratio]18.9 %High11.8 - 14.4 %[facility] HOSPITALPlatelet mean volume (Bld) [Entitic vol]12.6 fL8.1 - 13.5 fLBON SECOURS MERCY HEALTHPlatelets (Bld) [#/Vol]292 10*3/uLB[facility] RBC (Bld) [#/Vol]4.54 10*6/uL4.21 - 5.77 m/uLBON [facility]RS MERCY HEALTHSegmented neutrophils/100 WBC (Bld)90 %High36 - 66 %[facility] HEALTHWBC (Bld) [#/Vol]22.1 10*3/uLHighBON [facility] HEALTHNo Panel Informationon 01-03-2022 GFR >60>60 mL/minBON SEC[facility]RS MERCY HEALTHGFR Non->60>60 mL/minB[facility]CY HEALTHInterpretation and review of laboratory resultsAbnormalBON [facility] HEALTHB[facility] HEALTH Interpretation and review of laboratory resultsAbnormalBON [facility] B[facility] HEALTHB[facility] HEALTHInterpretation and review of laboratory resultsAbnormalBON [facility] HEALTHB[facility] HEALTHB[facility] HEALTHGFR >60>60 mL/minBON [facility]CY HEALTHGFR Non->60>60 mL/minB[facility]CY HEALTHInterpretation and review of laboratory resultsAbnormalBON [facility] HEALTHB[facility] HEALTHInterpretation and review of laboratory resultsAbnormalBON [facility] HEALTHB[facility] HEALTHInterpretation and review of laboratory results AbnormalBON [facility] MERCY HEALTHB[facility] HEALTHInterpretation and review of laboratory resultsAbnormalBON [facility] HEALTHB[facility] HEALTHInterpretation and review of laboratory resultsAbnormalBON [facility] HEALTHB[facility] HEALTHGFR >60>60 mL/minBON [facility] MERCY HEALTHGFR Non->60>60 mL/minB[facility] Interpretation and review of laboratory resultsAbnormalBON [facility] HEALTHInterpretation and review of laboratory resultsAbnormal [facility] HEALTHB[facility] HEALTHAbsolute Eos #0.00[facility] HEALTHAbsolute Immature Granulocyte0.00[facility] HEALTHAbsolute Lymph #0.88LowBON SECOURS MERCY HEALTHAbsolute [place] #1.33HighBON SECOURS [facility]ITALY HEALTHInterpretation and review of laboratory resultsAbnormalBON SECOURS [facility]ITALY HEALTHNRBC Automated0.00.0 per 100 WBCBON SECOURS MERCY HEALTHSegs Hvqjqccy86.89 HighBON SECOURS MERCY HEALTHBON [facility] HEALTHGFR >60>60 mL/minBON [facility] MERCY HEALTHGFR Non->60>60 mL/minBON [facility]CY HEALTHInterpretation and review of laboratory resultsAbnormalBON [facility] HEALTHB[facility] HEALTHInterpretation and review of laboratory resultsAbnormalBON [facility] HEALTHB[facility]ITALY HEALTHInterpretation and review of laboratory resultsAbnormalBON [facility] HEALTHB[facility] HEALTHGFR >60>60 mL/minBON [facility] MERCY HEALTHGFR Non- >60>60 mL/minB[facility] HEALTHInterpretation and review of laboratory resultsAbnormalBON [facility]ITALY HEALTHB[facility] HEALTH Interpretation and review of laboratory resultsAbnormalB[facility] HEALTH [facility] HEALTHPhosphorus, Inorg.on [id number], Inorg.3.3 mg/dLNormal2.5-4.5[facility] WestComment on above:Performed By: #### CDP, MELVIN, BMPX, IPF #### [email or web address] [address] [place] [address] Medical Representative: DENISE Brandonhosphorus, Inorg.2.9 mg/dLNormal2.5-4.5[facility] WestComment on above:Performed By: #### CDP #### [facility] [address] [place], [place] [address] Medical Representative: DENISE Brandonhosphorus, Inorg.3.5 mg/dLNormal2.5-4.5[facility] WestComment on above:Performed By: #### CDP, MELVIN, BMPX, IPF #### [facility] [address] [place] [address] [id number] Medical Representative: Eliane Brandonsphokhari, Inorg.3.1 mg/dLNormal2.5-4.5[facility] WestComment on above:Performed By: #### CDP, MELVIN, BMPX, IPF #### [facility] [address] [place] [address] Medical Representative: Eliane Brandonsphostephs, Inorg.2.5 mg/dLNormal2.5-4.5[facility] WestComment on above:Performed By: #### CDP, MELVIN, BMPX, IPF #### [facility] [address] [place], [place] [id number] Medical Representative: GAGE BrandonR ABDOMEN FOR NG/OG/NE TUBE PLACEMENTon [id number] ABDOMEN FOR NG/OG/NE TUBE PLACEMENTEXAMINATION: ONE SUPINE XRAY VIEW(S) OF THE ABDOMEN [...] Signed by: Eulogio Winslow MD 01/02/22 Final resultNormalRegency Hospital Cleveland WestAMYLASEon [id number] [Catalytic activity/Vol]13 U/LCritically sen50-759LnpFort Hamilton HospitalComment on above:Performed By: #### LIPA, MARGA, LIVER, BMP #### [facility] [address] [place], [place] [address] Dr. Kylee Christiansen Metabolic Profon [id number] [Mass/Vol]452 mg/dL Critically bgrh90-47Rzkms Pittston Medical CenterComment on above:Performed By: #### CDP #### [facility] [address] [place] [address] Medical Representative: Francisco J Fonseca MD(cont.)[facility] Comment on above:Result Comment: Average GFR for 70 or more years old: 75 mL/min/1.73sq m Chronic Kidney Disease: <60 mL/min/1.73sq m Kidney failure: <15 mL/min/1.73sq m eGFR calculated using average adult body mass. Additional eGFR calculator available at: http://www.toucanBox/multiple_crcl_2012.htmPerformed By: #### CDP #### [facility] [employer] [address] [place] [address] Medical Representative: Francisco J Fonseca MDAnion gap [Moles/Vol]12 mmol/LNormal9-17[facility] WestComment on above:Performed By: #### CDP #### [facility] [facility] [address] [place] [address] Medical Representative: Francisco J Fonseac MDCalcium [Mass/Vol]8.6 mg/dLNormal8.6-10.4[facility] WestComment on above:Performed By: #### CDP #### [facility] [employer] [address] [place] [address] Medical Representative: Francisco J Fonseca MDChloride [Moles/Vol]96 mmol/KNdu33-649BjbmdRegency Hospital Cleveland WestComment on above:Performed By: #### CDP #### [facility] [employer] [address] [place] [address] Medical Representative: Francisco J Fonseca MDCO2 [Moles/Vol]22 mmol/MSyzuls31-58ZcxenRegency Hospital Cleveland WestComment on above:Performed By: #### CDP #### [facility] [employer] [address] [place] [address] Medical Representative: MARLENY Brandonreatinine [Mass/Vol]0.81 mg/dLNormal0.70-1.20 [facility] Cleveland WestComment on above:Performed By: #### CDP #### [address] [address] Medical Representative: Francisco J Fonseca MDGFR, Amer>60Normal>60MerLittle Company of Mary HospitalComment on above:Performed By: #### CDP #### [address] [address] Medical Representative: ARTURO Brandon,non Amer>60Normal>60[facility] Cleveland WestComment on above:Performed By: #### CDP #### [address] [address] Medical Representative: DENISE Brandonotassium [Moles/Vol]4.1 mmol/LNormal3.7-5.3 [facility] Cleveland WestComment on above:Performed By: #### CDP #### [address] [address] Medical Representative: MEIR Brandonodium [Moles/Vol]130 mmol/HGzw847-337DxyjjRegency Hospital Cleveland WestComment on above:Performed By: #### CDP #### [address] [address] Medical Representative: Francisco J Fonseca MDUrea nitrogen [Mass/Vol]19 mg/dLNormal8-23[facility] WestComment on above:Performed By: #### CDP #### [address] [address] Medical Representative: MARLENY BrandonBC AUTO DIFFon [id number] #0.0 103/ulNormal 0.0-0.1Fort Hamilton HospitalComment on above:Performed By: #### CMP, LIPID #### [facility] [address] [place] [address] Dr. Kylee BunchBasophils/100 WBC (Bld)0.2 %Normal0.2-2.0The [facility] Comment on above:Performed By: #### CMP, LIPID #### [facility] [address] [place] [address] Dr. Kylee Del Castillo #0.1 103/ulNormal0.0-0.7The [facility] For RehabilitationComment on above: Performed By: #### CMP, LIPID #### [facility] [address] [place] [address] Dr. Kylee Steinbergosinophils/100 WBC (Bld)0.5 %Critically low0.9-7.0The [facility] For RehabilitationComment on above:Performed By: #### CMP, LIPID #### [facility] [address] [place] [address] Dr. Kylee Steinbergrythrocyte distribution width (RBC) [Ratio]18.5 %Critically high 11.0-15.0The [facility] For RehabilitationComment on above:Performed By: #### CMP, LIPID #### [facility] [address] [place] [address] Dr. Kylee BunchHematocrit (Bld) [Volume fraction]37.0 %Critically low42.0-54.0 The [facility] For RehabilitationComment on above:Performed By: #### CMP, LIPID #### [facility] [address] [place] [address] Dr. Kylee BunchHemoglobin (Bld) [Mass/Vol]12.6 g/dLCritically low14.0-18.0The [facility] For RehabilitationComment on above:Performed By: #### CMP, LIPID #### [facility] [address] [place] [address] Dr. Kylee Mckoy #0.02 10e3/ulNormal0.00-0.03The [facility] For RehabilitationComment on above:Performed By: #### CMP, LIPID #### [facility] [address] [place] [address] Dr. Kylee Mckoy %0.2 %Normal0.0-0.5The [facility] For RehabilitationComment on above: Performed By: #### CMP, LIPID #### [facility] [address] [place] [address] Dr. Kylee Jones #1.2 103/ulNormal1.2-3.8The [facility] For RehabilitationComment on above:Performed By: #### CMP, LIPID #### [facility] [address] [place] [address] Dr. Kylee Casashocytes/100 WBC (Bld)11.3 %Critically low20.5-60.0The [facility] For RehabilitationComment on above:Performed By: #### CMP, LIPID #### [facility] [address] [place] [address] Dr. Kylee BauerUAL DIFF REQNONormalThe [facility] For RehabilitationComment on above: Performed By: #### CMP, LIPID #### [facility] [address] [place] [address] Dr. Kylee Beasley (RBC) [Entitic mass]27.1 cyPyglda13.9-34.0The [facility] For RehabilitationComment on above:Performed By: #### CMP, LIPID #### [facility] [address] [place] [address] Dr. Kylee Beasley (RBC) [Mass/Vol]34.1 g/uDZcujjd79.9-35.2The [facility] For RehabilitationComment on above:Performed By: #### CMP, LIPID #### [facility] [address] [place] [address] Dr. Kylee Beasley (RBC) [Entitic vol]79.6 fLCritically low80.0-94.0The [facility] For RehabilitationComment on above:Performed By: #### CMP, LIPID #### [facility] [address] [place] [address] Dr. Kylee Abarca #0.5 103/ulNormal0.3-0.8The [facility] Chapel HospitalComment on above:Performed By: #### CMP, LIPID #### [facility] [address] [address] [address] Kylee Mirelesocytes/100 WBC (Bld)4.5 %Normal1.7-12.0The [facility] Comment on above:Performed By: #### CMP, LIPID #### [facility] [address] [place] [address] Dr. Kylee Shook #8.5 103/ulCritically high1.4-6.5The [facility] Comment on above:Performed By: #### CMP, LIPID #### [facility] [address] [place] [address] Dr. Kylee Martinutrophils/100 WBC (Bld)83.3 %Critically high43.0-75.0The [facility] For RehabilitationComment on above:Performed By: #### CMP, LIPID #### [facility] [address] [place] [address] Dr. Kylee BunchPlatelet mean volume (Bld) [Entitic vol]12.6 fLNormal9.5-13.5The [facility] For RehabilitationComment on above:Performed By: #### CMP, LIPID #### [facility] [address] [place] [address] Dr. Kylee BunchPLT335 103/cxDnxaef474-101Ufl [facility] For RehabilitationComment on above: Performed By: #### CMP, LIPID #### [facility] [address] [place] [address] Dr. Kylee BunchRBC4.65 106/ulCritically low4.70-6.10The [facility] For RehabilitationComment on above:Performed By: #### CMP, LIPID #### [facility] [address] [place] [address] Dr. Kylee BunchWBC10.2 103/ulNormal4.0-11.0The [facility] For RehabilitationComment on above:Performed By: #### CMP, LIPID #### [facility] [address] [place] [address] Dr. Kylee Locke with Diffon [id number]. Basophil0.00 k/uLNormal0.00-0.20 [facility] WestComment on above:Performed By: #### CDP, MELVIN, BMPX, IPF #### [place] [address] Medical Representative: MDAbs. RomaImm.Granulocyte0.00 k/uLNormal0.00-0.30[facility] Cleveland WestComment on above:Performed By: #### CDP, MELVIN, BMPX, IPF #### [place] [address] Medical Representative: Vidhya Brandon.Neutrophil (Seg)19.47 k/uLHigh1.50-8.10[facility] WestComment on above:Performed By: #### CDP, MELVIN, BMPX, IPF #### [place] [address] Medical Representative: Francisco J Fonseca MDBasophils/100 WBC (Bld)0 %Normal0-2MBrea Community HospitalComment on above:Performed By: #### CDP, MELVIN, BMPX, IPF #### [place] [address] Medical Representative: Francisco J Fonseca MDEosinophils (Bld) [#/Vol]0.00 10*3/uLNormal 0.00-0.44[facility] WestComment on above:Performed By: #### CDP, MELVIN, BMPX, IPF #### [address] [address] Medical Representative: Francisco J Fonseca MDEosinophils/100 WBC (Bld)0 %Low1-4[facility] WestComment on above:Performed By: #### CDP, MELVIN, BMPX, IPF #### [address] [address] Medical Representative: Mark Brandonture granulocytes/100 WBC (Bld)0 %Normal0 [facility] Cleveland WestComment on above:Performed By: #### CDP, MELVIN, BMPX, IPF #### [facility] [address] [place] [address] Medical Representative: Francisco J Fonseca MDLymphocytes (Bld) [#/Vol]0.41 10*3/uLLow 1.10-3.70[facility] WestComment on above:Performed By: #### CDP, MELVIN, BMPX, IPF #### [facility] [address] [place] [address] Medical Representative: Jeremie Brandonmphocytes/100 WBC (Bld)2 %Lmr96-35EjyfzRegency Hospital Cleveland WestComment on above:Performed By: #### CDP, MELVIN, BMPX, IPF #### [address] [address] Medical Representative: MARK Brandononocytes (Bld) [#/Vol]0.62 10*3/uLNormal 0.10-1.20[facility] WestComment on above:Performed By: #### CDP, MELVIN, BMPX, IPF #### [facility] [address] [place] [address] Medical Representative: MARK Brandononocytes/100 WBC (Bld)3 %Normal3-12[facility] WestComment on above:Performed By: #### CDP, MELVIN, BMPX, IPF #### [facility] [address] [place] [address] Medical Representative: MARK Brandonorphology Walter (Bld) [Interp]ANISOCYTOSIS PRESENTNormalRegency Hospital Cleveland WestComment on above:Performed By: #### CDP, MELVIN, BMPX, IPF #### [facility] [employer] [address] [place] [address] Medical Representative: Francisco J Madoff, MDNeutrophil (Seg)95 %Hfjq25-83WnspkRegency Hospital Cleveland WestComment on above:Performed By: #### CDP, MELVIN, BMPX, IPF #### [facility] [employer] [address] [place] [address] Medical Representative: Francisco J Fonseca MDErythrocyte distribution width (RBC) [Ratio]18.3 %High11.8-14.4[facility] WestComment on above:Performed By: #### CDP, MELVIN, BMPX, IPF #### [facility] [employer] [facility] [address] [place] [address] Medical Representative: Francisco J Fonseca MDHematocrit (Bld) [Volume fraction]38.9 %Low 40.7-50.3MBrea Community HospitalComment on above:Performed By: #### CDP, MELVIN, BMPX, IPF #### [facility] [employer] [address] [place] [address] Medical Representative: Francisco J Fonseca MDHemoglobin (Bld) [Mass/Vol]12.9 g/dLLow13.0-17.0 [facility] WestComment on above:Performed By: #### CDP, MELVIN, BMPX, IPF #### [facility] [address] [place] [address] Medical Representative: MARK BrandonCH (RBC) [Entitic mass]26.9 vtCzegcb89.2-33.5 [facility] WestComment on above:Performed By: #### CDP, MELVIN, BMPX, IPF #### [facility] [employer] [address] [place] [address] Medical Representative: MARK BrandonCHC (RBC) [Mass/Vol]33.2 g/oJTnjkra26.4-34.8 [facility] WestComment on above:Performed By: #### CDP, MELVIN, BMPX, IPF #### [facility] [employer] [address] [place] [address] Medical Representative: MARK BrandonCV (RBC) [Entitic vol]81.2 fLLow82.6-102.9[facility] Cleveland WestComment on above:Performed By: #### CDP, MELVIN, BMPX, IPF #### [address] [address] Medical Representative: SNOIA Brandon Automated0.0 per 100 WBCNormal0.0Reg[facility] Hospital Cleveland WestComment on above:Performed By: #### CDP, MELVIN, BMPX, IPF #### [address] [address] Medical Representative: Meera Brandon mean volume (Bld) [Entitic vol]12.4 fL Normal8.1-13.5[facility] Hospital Cleveland WestComment on above:Performed By: #### CDP, MELVIN, BMPX, IPF #### [facility] [employer] [address] [place] [address] Medical Representative: Cade Brandon (Bld) [#/Vol]324 10*3/cAYhkirf146-576 [facility] Cleveland WestComment on above:Performed By: #### CDP, MELVIN, BMPX, IPF #### [facility] [employer] [address] [place] [address] Medical Representative: YOLA Brandon (Bld) [#/Vol]4.79 10*6/uLNormal4.21-5.77 [facility] Cleveland WestComment on above:Performed By: #### CDP, MELVIN, BMPX, IPF #### [facility] [employer] [address] [place] [address] Medical Representative: PABLO Brandon (Bld) [#/Vol]20.5 10*3/uLHigh3.5-11.3MBrea Community HospitalComment on above:Performed By: #### CDP, MELVIN, BMPX, IPF #### [email or web address] [address] [place] [address] Medical Representative: Francisco J Fonseca, MDCT ABD/PELV W CONon [id number] ABD/PELV W CON EXAMINATION: CT ABD/PELV W CON 01/02/2022. COMPARISON STUDY: None. HISTORY: [...] identified. Background diffuse body wall edema with jhrqp-fi-eyhpucnf volume of abdominal and pelvic ascites noted. [...] 9:09 AM on 01/02/2022. Electronically authenticated by: [email or web address] Date: 2022-01-02 09:27Community [facility] HospitalCovid-19 PCR (CVDTB)on [id number]-CoV-2 (COVID-19) RNA ANASTASIA+probe Ql (Unsp spec)Not detectedNormalNOT DETECTEDThe [facility] Comment on above:Result Comment: When diagnostic testing is negative, the [...] for this test is supported by the [place] of Health and Human Service's declaration that circumstances exist to justify the emergency use of in vitro diagnostics for the detection and/or diagnosis of the virus that causes COVID-19. This EUA will remain in effect for the duration of the COVID-19 declaration justifying emergency of IVDs, unless it is terminated or revoked by the FDA (after which the test may no longer be used).Performed By: #### CVDTBH #### [facility] [address] [place] [address] Dr. Kylee Forbes URINE PROFILEon 56-20-6362Ccwvwllxf Ql (U)NegativeNormal NEGATIVEFort Hamilton HospitalComment on above:Performed By: #### CMP, LIPID #### [facility] [address] [place] [address] Dr. Kylee Bricenoarity (U)CLEARNormalCLEARFort Hamilton HospitalComment on above: Performed By: #### CMP, LIPID #### [facility] [address] [place] [address] Dr. Kylee De La Garza (U)LT. YELLOWNormalYELLOWFort Hamilton HospitalComment on above:Performed By: #### CMP, LIPID #### [facility] [address] [place] [address] Dr. Kylee Moe micrscopic examination will be performed if indicated. NormalFort Hamilton HospitalComment on above:Performed By: #### CMP, LIPID #### [facility] [address] [place] [address] Dr. Kylee BunchHemoglobin Ql (U)TRACE-INTACTAbnormalNEGATIVEFort Hamilton HospitalComment on above:Performed By: #### CMP, LIPID #### [facility] [address] [place] [address] Dr. Kylee BunchKetones Ql (U)15 mg/dlAbnormalNEGATIVEThe [facility] Comment on above:Performed By: #### CMP, LIPID #### [facility] [address] [address] [address] Kylee BunchLEUKOCYTESNegativeNormalNEGATIVEThe [facility] For RehabilitationComment on above:Performed By: #### CMP, LIPID #### [facility] [address] [address] [address] Kylee Royaltrite Ql (U)NegativeNormalNEGATIVEThe [facility] Hospital For RehabilitationComment on above:Performed By: #### CMP, LIPID #### [facility] [address] [address] [address] Kylee BunchpH (U)5.5 [pH]Normal5-9The [facility] Hospital For RehabilitationComment on above: Performed By: #### CMP, LIPID #### [facility] [address] [place] [address] Dr. Kylee BunchSPEC GRAVITY1.754Olgbqg6.005-<=1.025The [facility] Hospital For RehabilitationComment on above:Performed By: #### CMP, LIPID #### [facility] [address] [place] [address] Dr. Kylee Rodas PROTEINNegativeNormalNEGATIVE/ TRACEThe [facility] Comment on above:Performed By: #### CMP, LIPID #### [facility] [address] [place] [address] Dr. Kylee Mae MICRO INDINDICATEDNormalThe [facility] Hospital For RehabilitationComment on above: Performed By: #### CMP, LIPID #### [facility] [address] [place] [address] Dr. Kylee Correiabilinogen Qn (U)0.2 {Gemini'U}/dLNormal0.2 - 1.0The [facility] Hospital For RehabilitationComment on above:Performed By: #### CMP, LIPID #### [facility] [address] [place] [address] Dr. Kylee JhaASEon 06-43-1400Afdjvc [Catalytic activity/Vol]9.0 U/L Critically low73.0-393.0The [facility] Hospital For RehabilitationComment on above:Performed By: #### LIPA, MARGA, LIVER, BMP #### [facility] [address] [place] [address] Dr. Kylee Narayan PROFILEon 34-25-4320Jnmityj [Mass/Vol]3.3 g/dLCritically low3.4-5.0The [facility] Hospital For RehabilitationComment on above:Performed By: #### LIPA, MARGA, LIVER, BMP #### [facility] [address] [place] [address] Dr. Kylee BunchAlbumin/Globulin [Mass ratio]0.9 {ratio}NormalThe [facility] Hospital For RehabilitationComment on above:Performed By: #### LIPA, MARGA, LIVER, BMP #### [facility] [address] [place] [address] Dr. Kylee Forman [Catalytic activity/Vol]116 U/LAspsjj75-854Nnh [facility] For RehabilitationComment on above:Performed By: #### LIPA, MARGA, LIVER, BMP #### [facility] [address] [place] [address] Dr. Kylee Shelton [Catalytic activity/Vol]21 U/EAntmda94-61Bed [facility] For RehabilitationComment on above:Performed By: #### LIPA, MARGA, LIVER, BMP #### [facility] [address] [place] [address] Dr. Kylee Mccormack [Catalytic activity/Vol]24 U/LItnwrp27-74Wxr [facility] on above:Performed By: #### LIPA, MARGA, LIVER, BMP #### [facility] [address] [place] [address] Dr. Kylee Calhoun, CONJUGATED0.1 mg/dLNormal0.0-0.2The [facility] Comment on above:Performed By: #### LIPA, MARGA, LIVER, BMP #### [facility] [address] [place] [address] Dr. Kylee Santoirubin [Mass/Vol]0.6 mg/dLNormal0.2-1.0The [facility] Comment on above:Performed By: #### LIPA, MARGA, LIVER, BMP #### [facility] [address] [place], [place] [address] Dr. Kylee BunchGlobulin (S) [Mass/Vol]3.6 g/dLNormalThe [facility] For RehabilitationComment on above:Performed By: #### LIPA, MARGA, LIVER, BMP #### [facility] [address] [place], [place] [address] Dr. Kylee BunchProtein [Mass/Vol]6.9 g/dLNormal6.4-8.2The [facility] Comment on above:Performed By: #### LIPA, MARGA, LIVER, BMP #### [facility] [address] [place], [place] [address] Dr. Kylee BunchLaboratory - Chemistry and Chemistry - challengeon 01-02-2022 Glucose [Mass/Vol]223 mg/dLBON TRIHEALTH GOOD SAMARITAN HOSPITALComment on above:The ADA and AACC recommend providing the estimated average glucose result to permit better patient understanding of their HBA1c result. Glucose [Mass/Vol]227 mg/jIWpup57 - 110 mg/dLBON [facility] HEALTHGlucose [Mass/Vol]290 mg/iHDwdt54 - 110 mg/dLBON [facility] HEALTHGlucose [Mass/Vol] 300 mg/dPLjih46 - 110 mg/dLBON [facility] HEALTHGlucose [Mass/Vol]323 mg/dL High75 - 110 mg/dLBON SECUNIVERSITY HOSPITALS BEACHWOOD MEDICAL CENTERAnion gap [Moles/Vol]12 mmol/L9 - 17 mmol/LBON SECWILLIS-KNIGHTON [facility]ENTER HEALTHCalcium [Mass/Vol]8.6 mg/dL8.6 - 10.4 mg/dLBON SECWILLIS-KNIGHTON [facility]ENTER HEALTHChloride [Moles/Vol]96 mmol/LLow98 - 107 mmol/LBON [facility]OS[facility] HEALTHCO2 [Moles/Vol]22 mmol/L20 - 31 mmol/LBON [facility] Creatinine [Mass/Vol]0.81 mg/dL0.70 - 1.20 mg/dLBON SECASTRIA SUNNYSIDE HOSPITALY HEALTHGFR/1.73 sq M.predicted MDRD (S/P/Bld) [Vol rate/Area][facility] SAMARITAN HOSPITALComment on above:Average GFR for 70 or more years old: 75 mL/min/1.73sq m Chronic Kidney Disease: <60 mL/min/1.73sq m Kidney failure: <15 mL/min/1.73sq m eGFR calculated using average adult body mass. Additional eGFR calculator available at: http://www.toucanBox/multiple_crcl_2012.htm Glucose [Mass/Vol]452 mg/dLCritically high70 - 99 mg/dLBON [facility]HE[facility] Potassium [Moles/Vol]4.1 mmol/L3.7 - 5.3 mmol/LBON TRIHEALTH GOOD SAMARITAN HOSPITALSodium [Moles/Vol]130 mmol/BWzt862 - 144 mmol/LBON TRIHEALTH GOOD SAMARITAN HOSPITALUrea nitrogen (BldV) [Mass/Vol]19 mg/dL8 - 23 mg/dLBON TRIHEALTH GOOD SAMARITAN HOSPITALAlbumin [Mass/Vol] 3.6 g/dL3.5 - 5.2 g/dLBON TRIHEALTH GOOD SAMARITAN HOSPITALAlbumin/Globulin [Mass ratio]1.3 {ratio}B[facility] TRIHEALTH GOOD SAMARITAN HOSPITALALP (Bld) [Catalytic activity/Vol]100 U/L40 - 129 U/LBON TRIHEALTH GOOD SAMARITAN HOSPITALALT [Catalytic activity/Vol]15 U/L5 - 41 U/LBON TRIHEALTH GOOD SAMARITAN HOSPITALAST [Catalytic activity/Vol]18 U/L<40BON TRIHEALTH GOOD SAMARITAN HOSPITALBilirubin [Mass/Vol]0.45 mg/dL0.3 - 1.2 mg/dLBON [facility] Bilirubin.indirect [Mass/Vol]0.17 mg/dL<0.31BON [facility] GOOD SAMARITAN HOSPITALFree PSA/Total PSA [Mass fraction]6.4 g/dL6.4 - 8.3 g/dLBON [facility] Glucose [Mass/Vol]433 mg/dLCritically high75 - 110 mg/dLBON [facility]HE[facility] Comment on above:Critical NotedLaboratory - Coagulationon 03-47-7686OGL Coag (Bld) [Relative time]1.2 {INR}[facility] AL[facility]ANS HOSPITALComment on above: Therapeutic Range: Moderate Anticoagulant Intensity: INR = 2.0-3.0 High Anticoagulant Intensity: INR = 2.5-3.5 PT Coag (PPP) [Time]12.5 sHighBON TRIHEALTH GOOD SAMARITAN HOSPITALLaboratory - Hematology and Cell countson 99-06-8708HvC3e (Bld) [Mass fraction]9.4 %High4.0 - 6.0 %[facility] HEALTHBasophils (Bld) [#/Vol]0.00 10*3/uLBON [facility] Basophils/100 WBC (Bld)0 %0 - 2 %BON SECUNIVERSITY HOSPITALS BEACHWOOD MEDICAL CENTEREosinophils/100 WBC (Bld)0 %Low1 - 4 %[facility] SECUN[facility] H[facility] BEACHWOOD MEDICAL CENTERHematocrit (Bld) [Volume fraction]38.9 %Low40.7 - 50.3 %B[facility] SAMARITAN HOSPITALHemoglobin (Bld) [Mass/Vol]12.9 g/dLLow 13.0 - 17.0 g/dLBON SECUNIVERSITY HOS[facility]ITALS BEACH[facility]OD MEDICAL CENTERImmature granulocytes/100 WBC (Bld)0 %0 [facility] MEMORIAL HOSPITALLymphocytes/100 WBC (Bld)2 %Low24 - 43 %[facility]EN[facility] CAMPUSH (RBC) [Entitic mass]26.9 pg25.2 - 33.5 pgBON SECMADISON HEALTHHC (RBC) [Mass/Vol]33.2 g/dL28.4 - 34.8 g/dLBON SECMADISON HEALTHV (RBC) [Entitic vol]81.2 fLLow82.6 - 102.[address] [facility] Monocytes/100 WBC (Bld)3 %3 - 12 %B[facility] GOOD SAMARITAN HOSPITALMorphology Walter (Bld) [Interp]ANISOCYTOSIS PRESENTBON SECWILLIS-KNIGHTON [facility]ENTER HEALTHPlatelet distribution width (Bld) [Ratio]18.3 %High11.8 - 14.4 %[facility]WILL[facility]ENTER HEALTHPlatelet mean volume (Bld) [Entitic vol]12.4 fL8.1 - 13.5 fLBON SECWILLIS-KNIGHTON MEDICAL CENTER HEALTHPlatelets (Bld) [#/Vol]324 10*3/uLBON [facility] HEALTHRBC (Bld) [#/Vol]4.79 10*6/uL4.21 - 5.77 m/uLBON SECUNIVERSITY HOSPITALS BEACHWOOD MEDICAL CENTERSegmented neutrophils/100 WBC (Bld)95 %High36 - 65 %[facility] SECUN[facility] HOSP[facility] BEACHWOOD MEDICAL CENTERWBC (Bld) [#/Vol]20.5 10*3/uLHighBON SECOURS DUNLAP MEMORIAL HOSPITALLactate, Sepsison 35-15-1738Odbazn Acid,Sep Wbld1.7 mmol/LNormal0.5-1.9 [facility] WestComment on above:Performed By: #### CDP, MELVIN, BMPX, IPF #### [facility] [place] [address] Medical Representative: Beatrice Brandon Profileon 89-86-9244Csmwnta [Mass/Vol]3.6 g/dLNormal3.5-5.2MBrea Community HospitalComment on above:Performed By: #### CDP #### [address] [address] Medical Representative: Francisco J Fonseca MDAlbumin/Glob Ratio1.3Ekfvqa9.0-2.5[facility] Cleveland WestComment on above:Performed By: #### CDP #### [facility] [employer] [address] [place] [address] Medical Representative: Angie Brandon Mzhg860 U/ZEtzavl71-183JadfqRegency Hospital Cleveland WestComment on above:Performed By: #### CDP #### [facility] [employer] [address] [place] [address] Medical Representative: Francisco J Fonseca MDALT [Catalytic activity/Vol]15 U/LNormal5-41 [facility] WestComment on above:Performed By: #### CDP #### [facility] [employer] [address] [place] [address] Medical Representative: Francisco J Fonseca MDAST [Catalytic activity/Vol]18 U/LNormal<40[facility] WestComment on above:Performed By: #### CDP #### [facility] [employer] [address] [place] [address] Medical Representative: Francisco J Fonseca MDBilirubin [Mass/Vol]0.45 mg/dLNormal0.3-1.2Mhocking valley community hospitaly [facility] Medical CenterComment on above:Performed By: #### CDP #### [facility] [employer] [address] [place] [address] Medical Representative: Francisco J Fonseca MDBilirubin, Indirect0.28 mg/dLNormal0.00-1.00 [facility] WestComment on above:Performed By: #### CDP #### [facility] [employer] [address] [place] [address] Medical Representative: Krishna Brandonirubin.indirect [Mass/Vol]0.17 mg/dLNormal <0.31[facility] Cleveland WestComment on above:Performed By: #### CDP #### [address] [address] Medical Representative: Francisco J Fonseca MDProtein [Mass/Vol]6.4 g/dLNormal6.4-8.3MBrea Community HospitalComment on above:Performed By: #### CDP #### [address] [address] Medical Representative: Francisco J Fonseca MDNo Panel Informationon 29-41-6177Ptycyltopoyslr and review of laboratory resultsAbnormalSENTARA NORTHERN VIRGINIA MEDICAL CENTERInterpretation and review of laboratory resultsAbnormalSENTARA NORTHERN VIRGINIA MEDICAL CENTEREnteric tube needs to be advanced [address] [facility] RIS CONSOLIDATEDEXAMINATION: ONE SUPINE XRAY VIEW(S) OF THE ABDOMEN [...] to be advanced at least 10 cm. MHEulogio Soto MD - 01/02/2022 EXAMINATION: ONE SUPINE XRAY [...] tube needs to be advanced 10 cm. [employer] Work Phone: Interpretation and review of laboratory results AbnormalBON SAME DAY SURGERY CENTERInterpretation and review of laboratory resultsAbnormalSENTARA NORTHERN VIRGINIA MEDICAL CENTERRadiology Study observation (narrative)[employer] Work Phone: absolute Eos #0.00[facility] HOSPITALAbsolute Immature Granulocyte0.00[facility] HEALTHAbsolute Lymph #0.41LowB[facility] SECOURS [facility] HEALTHAbsolute [place] #0.62BON SECDealer Tire [facility] HEALTHInterpretation and review of laboratory resultsAbnormBon Secours Memorial Regional Medical CenterNRBC Automated 0.00.0 per 100 WBCBON OhioHealthgs Cpxpqjef83.47HighBON SECSAKAKAWEA MEDICAL CENTER HEALTHInterpretation and review of laboratory resultsAbnormalBON ST. [facility] HEALTHInterpretation and review of laboratory resultsAbnormalSENTARA NORTHERN VIRGINIA MEDICAL CENTERLactic Acid, Sepsis, Whole Blood1.7 mmol/L0.5 - 1.9 mmol/LBON SECSAKAKAWEA MEDICAL CENTER HEALTHGFR >60>60 mL/minSENTARA RMH MEDICAL [facility]ENTER HEALTHGFR Non->60>60 mL/minSAUGUS GENERAL HOSPITALDealer Tire [facility]OSPITALY HEALTHInterpretation and review of laboratory resultsAbnormalBON SEC[facility] SECW[facility] HEALTHBilirubin, Indirect0.28 mg/dL0.00 - 1.00 mg/dLBON SAME DAY SURGERY CENTERInterpretation and review of laboratory resultsAbnormalBON SAME DAY SURGERY CENTERNo Panel InformationOrdered By: Eulogio Winslow on 68-77-8420TUN [facility] Work Phone: POINT OF CARE GLUCOSEon 02-94-1610Zdmyxma [Mass/Vol] 408 mg/dLCritically tvic98-545Fta [facility] RehabilitationComment on above:Performed By: #### POCGLUC #### [facility] [address] [place] [address] Dr. Kylee BunchPROF CHEM 8 (BAS METB)on 18-17-7728Jwllp gap [Moles/Vol]16.4 mmol/LNormalThe [facility] For RehabilitationComment on above:Performed By: #### LIPA, MARGA, LIVER, BMP #### [facility] [address] [address] [address] Kylee BunchCalcium [Mass/Vol]8.8 mg/dLNormal8.5-10.1[facility] Comment on above:Performed By: #### LIPA, MARGA, LIVER, BMP #### [facility] [address] [address] [address] Kylee BunchChloride [Moles/Vol]96 mmol/LCritically kho62-586Ubu [facility] RehabilitationComment on above:Performed By: #### LIPA, MARGA, LIVER, BMP #### [facility] [address] [address] [address] Kylee BunchCO2 [Moles/Vol]25.1 mmol/VBmmcrw22.0-32.0[facility] Comment on above:Performed By: #### LIPA, MARGA, LIVER, BMP #### [facility] [address] [place] [address] Dr. Kylee BunchCreatinine [Mass/Vol]1.22 mg/dLNormal0.70-1.30The [facility] RehabilitationComment on above:Performed By: #### LIPA, MARGA, LIVER, BMP #### [facility] [address] [address] [address] Pichardo ChangEGFR-AF SAO TOMEAN>60Normal>=60The [facility] For RehabilitationComment on above:Performed By: #### LIPA, MARGA, LIVER, BMP #### [facility] [address] [address] [address] Kylee SteinbergGFR-NON AF CPJKGIJC67 mL/min/1.46x1Nuoijhxgvt low>=60The [facility] For RehabilitationComment on above:Performed By: #### LIPA, MARGA, LIVER, BMP #### [facility] [address] [address] [address] Kylee BunchGlucose [Mass/Vol]579 mg/dLCritically viux89-594Srd [facility] RehabilitationComment on above:Result Comment: repeatedPerformed By: #### LIPA, MARGA, LIVER, BMP #### [facility] [address] [place] [address] Dr. Kylee BunchPotassium [Moles/Vol]4.5 mmol/LNormal3.5-5.1The [facility] Comment on above:Performed By: #### LIPA, MARGA, LIVER, BMP #### [facility] [address] [address] [address] Kylee BunchSodium [Moles/Vol]133 mmol/LCritically vgw422-176Iom [facility] RehabilitationComment on above:Performed By: #### LIPA, MARGA, LIVER, BMP #### [facility] [address] [address] [address] Kylee BunchUrea nitrogen [Mass/Vol]19.0 mg/dLCritically high7.0-18.0The [facility] For RehabilitationComment on above:Performed By: #### LIPA, MARGA, LIVER, BMP #### [facility] [address] [place] [address] Dr. Kylee Saenz nitrogen/Creatinine [Mass ratio]15.6 mg/mgNormalThe [facility] For RehabilitationComment on above:Performed By: #### LIPA, MARGA, LIVER, BMP #### [facility] [address] [place] [address] Dr. Kylee Hernández 60-91-7056QCU Coag (PPP) [Relative time]1.2 {INR}NormalMercy Hemet Global Medical CenterComment on above:Result Comment: Therapeutic Range: Moderate Anticoagulant Intensity: INR = 2.0-3.0 High Anticoagulant Intensity: INR = 2.5-3.5Performed By: #### CDP, MELVIN, BMPX, IPF #### [facility] [address] [place] [id number] Medical Representative: SABINA Brandon Coag (PPP) [Time]12.5 sHigh9.1-12.3Mercy Hemet Global Medical CenterComment on above:Performed By: #### CDP, MELVIN, BMPX, IPF #### [facility] Center[facility] [address] [place] [id number] Medical Representative: ANNALISE Brandon MICROSCOPIC ONLYon [id number] SEENNormalNONE SEENFort Hamilton HospitalComment on above:Performed By: #### CMP, LIPID #### [facility] [address] [place] [address] Dr. Kylee Devlin identified Cx Nom (U)NOT INDICATEDNoUniversity Hospitals Conneaut Medical CenterComkalkaska memorial health center on above:Performed By: #### CMP, LIPID #### [facility] [address] [place] [address] Dr. Kylee [place] SEENNormalNONE SEENFort Hamilton HospitalComment on above:Performed By: #### CMP, LIPID #### [facility] [address] [address] [address] Kylee Montaño LM Nom (Urine sed)NONE SEENNormalNONE SEENFort Hamilton HospitalComkalkaska memorial health center on above:Performed By: #### CMP, LIPID #### [facility] [address] [place] [address] Dr. Kylee Villarrealthelial cells LM Ql (Urine sed)RARENormalNONE SEEN /RAREFort Hamilton HospitalComment on above:Performed By: #### CMP, LIPID #### [facility] [address] [address] [address] Kylee BunchMUCOUSNONOdalys SEENNormalNONE SEENFort Hamilton HospitalComment on above:Performed By: #### CMP, LIPID #### [facility] [address] [address] [address] Kylee BunchCxtdsVMO7-8Kzkrmf7-7Kme [facility] RehabilitationComment on above:Performed By: #### CMP, LIPID #### [facility] [address] [address] [address] Kylee BunchWBCNONE SEENNormalNONE SEENThe [facility] For RehabilitationComment on above: Performed By: #### CMP, LIPID #### [facility] [address] [address] [address] Kylee Bunch Vital Signs Date TimeVital SignValuePerforming UsotjrvhvHlyagwrc54-58-4621 10:42-0400Body tuomek554.34 cmRobert Vaschak DO Work Phone: [facility]10-29-2025 10:24-0400 Body mass index (BMI) [Ratio]18.9 kg/i4Bzbwag Vaschak DO Work Phone: [facility]10-29-2025 10:24-0400 Body .68 kgRobert Vaschak DO Work Phone: [facility]10-29-2025 10:24-0400 Diastolic blood gmrjhizw04 mm[Hg]Marie Vaschak DO Work Phone: [facility]10-29-2025 10:24-0400 Respiratory rate18 /minRobert Vaschak DO Work Phone: [facility]10-29-2025 10:24-0400 Systolic blood nxilwkks697 mm[Hg]Marie Vaschak DO Work Phone: [facility]10-22-2025 09:45-0400 Body mass index (BMI) [Ratio]20.09 kg/m2Amy Warchol DIRECTOR OF CUSTOMER ACQUISITION Work Phone: [facility] HospitalCipplxuzun79-97-1501 09:45-0400Body aykoyh85.5 kg Marga Robledo DIRECTOR OF CUSTOMER ACQUISITION Work Phone: [facility] HospitalPgwurzpdti20-93-8774 09:45-0400Diastolic blood smcedjtc98 mm[Hg]Marga Robledo DIRECTOR OF CUSTOMER ACQUISITION Work Phone: [facility] HospitalLxnewxhabp68-25-2904 09:45-0400Heart rate61 /min Marga Davischol DIRECTOR OF CUSTOMER ACQUISITION Work Phone: [facility] HospitalXwfqwfvjjk11-34-9720 09:45-7979BiA3% (BldA) [Mass fraction]96 %Marga Robledo DIRECTOR OF CUSTOMER ACQUISITION Work Phone: [facility] HospitalQgufwkrxhm23-72-3059 09:45-0400Systolic blood uojnxeez874 mm[Hg]Marga Robledo DIRECTOR OF CUSTOMER ACQUISITION Work Phone: [facility] HospitalGbnnsvmeeh09-03-6487 10:08-0400Body ptkosj864.8 cmRobert Vaschak DO Work Phone: 1(701)803-[address] [place], [place] 7172209-16-2025 10:08-0400 Body mass index (BMI) [Ratio]19.5 kg/m3Rmuzue Vaschak DO Work Phone: 1(524)095-[address] [place], [place] 7172209-16-2025 10:08-0400 Body .68 kgRobert Vaschak DO Work Phone: [address] [place], [place] 2863409-16-2025 10:08-0400 Diastolic blood nlergqdl23 mm[Hg]Marie Vaschak DO Work Phone: 1(377)205-[address] [place], [place] 7172209-16-2025 10:08-0400 Heart rate80 /minRobert Vaschak DO Work Phone: [facility]09-16-2025 10:08-0400 Respiratory rate18 /minRobert Vaschak DO Work Phone: [phone](265)264-80[facility]09-16-2025 10:08-0400 SaO2% (BldA) [Mass fraction]98 %Marie Vaschak DO Work Phone: [phone]09-16-2025 10:08-0400 Systolic blood nginxrrq283 mm[Hg]Marie Tejeda DO Work Phone: [facility]06-24-2025 11:38-0400 Body gchlel562.8 cmRoberleeann Tejeda DO Work Phone: [address] [place], [place] [address]Oygusmkxfe83-08-6221 11:38-0400Body mass index (BMI) [Ratio]19.8 kg/w7Zshetlmarsha Tejeda DO Work Phone: [address] [place], [place] [address]Gyvjcqljnv70-86-9807 11:38-0400Body .6 kg Marie Tejeda DO Work Phone: [address] [place], [place] [address]Tkajiholjf59-73-6590 11:38-0400Diastolic blood jfotwrvh54 mm[Hg]Marie Tejeda DO Work Phone: 1(113)8-[address] [place], [place] [address]Okwqobxfeq17-63-3515 11:38-0400Heart rate64 /min Marie Tejeda DO Work Phone: 0(281)5-83[facility] HospitalRjfsfxoelf28-65-3272 11:38-6187XrO7% (BldA) [Mass fraction]96 %Marie Tejeda DO Work Phone: 5(622)179-[facility] HospitalEmpmqmvhaq66-55-8745 11:38-0400Systolic blood yolphkmr956 mm[Hg]Marie Tjeeda DO Work Phone: 6(563)2-9015[facility] HospitalGxyudgmrcs42-01-2402 12:09-0400Body erefcs426.8 cmAyana Zavala APRN.UTILITY SYSTEM OPERATOR Work Phone: [facility]04-17-2025 12:09-0400Body mass index (BMI) [Ratio]19.3 kg/r4LgtybhbAyana Zavala APRN.UTILITY SYSTEM OPERATOR Work Phone: [facility]04-17-2025 12:09-0400Body bcssii96 kg Ayana Zavala APRN.UTILITY SYSTEM OPERATOR Work Phone: [facility]04-17-2025 12:09-0400Diastolic blood fdgwayet18 mm[Hg]Ayana Zavala SENIOR DYNAMICS CRM DEVELOPER.UTILITY SYSTEM OPERATOR Work Phone: [phone]04-17-2025 12:09-0400Heart rate60 /min Ayana Souleymane SENIOR DYNAMICS CRM DEVELOPER.UTILITY SYSTEM OPERATOR Work Phone: [phone]04-17-2025 12:09-3238IpD2% (BldA) [Mass fraction]99 %Ayana Zavala SENIOR DYNAMICS CRM DEVELOPER.UTILITY SYSTEM OPERATOR Work Phone: [phone]04-17-2025 12:09-0400Systolic blood mm[Hg]Ayana Souleymane SENIOR DYNAMICS CRM DEVELOPER.UTILITY SYSTEM OPERATOR Work Phone: [phone]03-17-2025 14:27-0400Body mass index (BMI) [Ratio]19.96 kg/n7Nyyzdbs Souleymane SENIOR DYNAMICS CRM DEVELOPER.UTILITY SYSTEM OPERATOR Work Phone: [phone]03-17-2025 14:27-0400Body ngaezz10.1 kgAyana Zavala SENIOR DYNAMICS CRM DEVELOPER.UTILITY SYSTEM OPERATOR Work Phone: [phone]03-17-2025 14:27-0400Diastolic blood gubqqffg75 mm[Hg]Ayana Souleymane SENIOR DYNAMICS CRM DEVELOPER.UTILITY SYSTEM OPERATOR Work Phone: [phone]03-17-2025 14:27-0400Heart rate60 /min Ayana Souleymane SENIOR DYNAMICS CRM DEVELOPER.UTILITY SYSTEM OPERATOR Work Phone: [phone]03-17-2025 14:27-8952LcC3% (BldA) [Mass fraction]100 %Ayana Zavala SENIOR DYNAMICS CRM DEVELOPER.UTILITY SYSTEM OPERATOR Work Phone: [phone]03-17-2025 14:27-0400Systolic blood rlevehlj380 mm[Hg]Ayana Zavala SENIOR DYNAMICS CRM DEVELOPER.UTILITY SYSTEM OPERATOR Work Phone: [phone]02-20-2025 10:15-0500Body okcxlp601.8 cmRobert Vaschak DO Work Phone: [facility]02-20-2025 10:15-0500 Body mass index (BMI) [Ratio]20 kg/b6Zhjckj Vaschak DO Work Phone: [facility]02-20-2025 10:15-0500 Body vaerjk79.5 kgRobmarsha Tejeda DO Work Phone: [facility]02-20-2025 10:15-0500 Diastolic blood nqqvpaso12 mm[Hg]Marie Tejeda DO Work Phone: [facility]02-20-2025 10:15-0500 Heart rate60 /minRobmarsha Yunk DO Work Phone: [address] [place], [place] 2863402-20-2025 10:15-0500 Respiratory rate18 /minRobert Ileana DO Work Phone: 0(952)039-[address] [place], [place] 7172202-20-2025 10:15-0500 SaO2% (BldA) [Mass fraction]97 %Marie Tejeda DO Work Phone: [facility]02-20-2025 10:15-0500 Systolic blood ewnqakef469 mm[Hg]Marie Tejeda DO Work Phone: [facility]02-19-2025 13:54-0500 Diastolic blood axyxrfkv59 mm[Hg]Marie Tejeda DO Work Phone: [facility] HospitalIvqpljmjpc60-93-0658 13:54-0500Systolic blood mm[Hg]Marie Tejeda DO Work Phone: [facility] HospitalIruaztylcj66-86-9078 13:50-0500Heart rate61 /min Marie Tejeda DO Work Phone: [facility] HospitalCgiokvqris72-60-7418 13:50-3103MlN1% (BldA) [Mass fraction]98 %Marie Tejeda DO Work Phone: [facility] HospitalCrpeunnpje82-32-9779 10:13-0500Body mass index (BMI) [Ratio]21.24 kg/f3Heapvoy Chiki DIRECTOR OF CUSTOMER ACQUISITION Work Phone: [facility] HospitalDibnxbjmkx28-95-1923 10:13-0500Body iqtosp39.13 kgCaitlin Chiki DIRECTOR OF CUSTOMER ACQUISITION Work Phone: [facility] HospitalVjbvcjlwue20-45-5333 10:13-0500Diastolic blood dvwcyfaf82 mm[Hg]Yomi Chong DIRECTOR OF CUSTOMER ACQUISITION Work Phone: [facility] HospitalRdqjknvpeu18-10-0528 10:13-0500Heart rate74 /min Yomi Chong DIRECTOR OF CUSTOMER ACQUISITION Work Phone: [facility] HospitalQzblpnacft50-49-8119 10:13-8155PnN6% (BldA) [Mass fraction]92 %Yomi Chong DIRECTOR OF CUSTOMER ACQUISITION Work Phone: [facility] HospitalWbzmblhntc94-09-6912 10:13-0500Systolic blood rofshjnm677 mm[Hg]Yomi Chong DIRECTOR OF CUSTOMER ACQUISITION Work Phone: [facility] HospitalSznpivhtyn35-75-8955 13:57-0500Diastolic blood pwyokzat77 mm[Hg]Marie Vaschak DO Work Phone: 8(967)098-[address] [place], [place] 7172201-06-2025 13:57-0500 Systolic blood uzvecdqg807 mm[Hg]Marie Vaschak DO Work Phone: 1(574)650-[address] [place], [place] 7172201-06-2025 13:17-0500 Body qlyoyd370.8 cmRobert Vaschak DO Work Phone: 1(509)670-[address] [place], [place] 7172201-06-2025 12:03-0500 Body rmegshunxqr63.1 [degF]Marie Vaschak DO Work Phone: 7(177)749-[address] [place], [place] 7172201-06-2025 12:03-0500 Heart rate60 /minRobert Vaschak DO Work Phone: 6(242)966-[address] [place], [place] 7172201-06-2025 12:03-0500 Respiratory rate12 /minRobert Vaschak DO Work Phone: 6(525)423-[address] [place], [place] 7172201-06-2025 12:03-0500 SaO2% (BldA) [Mass fraction]95 %Marie Vaschak DO Work Phone: 5(633)889-[address] [place], [place] 7172201-06-2025 03:36-0500 Body dtaium633.8 cmRobert Vassunithak DO Work Phone: 9(982)046-[address] [place], [place] 7172201-06-2025 03:36-0500 Body xzghxfysisl27.6 [degF]Marie Vaschak DO Work Phone: 8(318)[address]01-06-2025 03:36-0500 Body cxpnla96.5 kgRobert Vaschak DO Work Phone: 6(274)[address]01-06-2025 03:36-0500 Diastolic blood vuuqlpbf08 mm[Hg]Marie Vassunithak DO Work Phone: 3(068)[address]01-06-2025 03:36-0500 Heart rate61 /minRobert Vaschak DO Work Phone: 7(752)[address]01-06-2025 03:36-0500 Respiratory rate15 /minRobert Vaschak DO Work Phone: 2(006)9-[address] [place], [place] 7172201-06-2025 03:36-0500 SaO2% (BldA) [Mass fraction]91 %Marie Tejeda DO Work Phone: 8(301)5-[address] [place], [place] 7172201-06-2025 03:36-0500 Systolic blood rocwfbeq285 mm[Hg]Marie Yunk DO Work Phone: 0(615)7-[address] [place], [place] 7172212-26-2024 11:15-0500 Body mass index (BMI) [Ratio]21.61 kg/j1JyrmzbwAyana Zavala APRN.UTILITY SYSTEM OPERATOR Work Phone: [facility]12-26-2024 11:15-0500Body jhmupe40.3 kgAyana Zavala APRN.UTILITY SYSTEM OPERATOR Work Phone: 3([phone]12-26-2024 11:15-0500Diastolic blood kmgwtdcy45 mm[Hg]Ayana Zavala APRN.UTILITY SYSTEM OPERATOR Work Phone: [phone]12-26-2024 11:15-0500Heart rate60 /min Ayana Zavala APRN.UTILITY SYSTEM OPERATOR Work Phone: [facility]12-26-2024 11:15-0500Systolic blood ngacqdpt979 mm[Hg]Ayana Zavala UTILITY SYSTEM OPERATOR Work Phone: [facility]12-23-2024 09:23-0500Body jfblem805.8 cmAilya Oh MD Work Phone: [facility] HospitalBjlnzqvdlu16-57-5496 09:23-0500Body mass index (BMI) [Ratio]20.37 kg/q2XehnljBeto Oh MD Work Phone: [facility] HospitalVvyztbwehv32-06-5751 09:23-0500Body lpkerl75.41 kgBeto Oh MD Work Phone: [facility] HospitalEamdvlwmhy41-81-5186 12:00-0500Body temperature 97.6 [degF]Marie Xavichak DO Work Phone: [facility]12-11-2024 12:00-0500 Diastolic blood nvduhyqo61 mm[Hg]Marie Vaschak DO Work Phone: 1(092)328-[address] [place], [place] 7172212-11-2024 12:00-0500 Heart rate68 /minRobert Vaschak DO Work Phone: 4(746)5-81[facility]12-11-2024 12:00-0500 Respiratory rate16 /minRobert Vaschak DO Work Phone: [facility]12-11-2024 12:00-0500 SaO2% (BldA) [Mass fraction]98 %Marie Vaschak DO Work Phone: 7(185)293-66[facility]12-11-2024 12:00-0500 Systolic blood lzkkapvf928 mm[Hg]Marie Vaschak DO Work Phone: 0(585)105-56[facility]12-11-2024 06:00-0500 Body obfkuk29.6 kgRobert Vaschak DO Work Phone: 8(027)702-16[facility]12-10-2024 12:12-0500 Body yajttr607.34 cmRoberleeann Vassunithak DO Work Phone: 1(801)[address]12-09-2024 14:59-0500 Body ttjhyq636.8 cmRobert Vaschak DO Work Phone: 1(173)[address]12-09-2024 14:59-0500Body mass index (BMI) [Ratio]20.37 kg/d0Qyxzbn Vaschak DO Work Phone: 1(194)[address] [place], [place] 5445012-09-2024 14:59-0500Body .41 kgRobert Vassunithak DO Work Phone: 1(063)[address] [place], [place] 5445012-09-2024 14:59-0500Diastolic blood lqikbvuq36 mm[Hg]Marie Tejeda DO Work Phone: 1(740)[address] [place], [place] 5445012-09-2024 14:59-0500Heart rate70 /min Marie Tejeda DO Work Phone: 1(404)[facility] [place], [place] [address]Ilwtnsfgoa06-84-1297 14:59-0500Systolic blood axsvkyfi302 mm[Hg]Marie Tejeda DO Work Phone: 1(129)[address] [place], [place] 5445012-08-2024 15:42-0500Body temperature 97.6 [degF]Marie Tejeda DO Work Phone: 7(218)[address]12-08-2024 15:42-0500 Diastolic blood mm[Hg]Marie Tejeda DO Work Phone: 5(082)8-[address] [place], [place] 7172212-08-2024 15:42-0500 Heart rate60 /minRobert Vaschak DO Work Phone: 5(711)252-[address] [place], [place] 7172212-08-2024 15:42-0500 Respiratory rate19 /minRobert Vaschak DO Work Phone: 4(968)0-[address] [place], [place] 7172212-08-2024 15:42-0500 SaO2% (BldA) [Mass fraction]96 %Marie Tejeda DO Work Phone: 0(348)150-[address] [place], [place] 7172212-08-2024 15:42-0500 Systolic blood vagrrelj872 mm[Hg]Marie Tejeda DO Work Phone: 1(507)128-[address] [place], [place] 7172212-08-2024 05:28-0500 Body syokql71.5 kgRobert Vassunithak DO Work Phone: 2(199)[address]12-06-2024 19:55-0500 Body awwczh304.8 cmRobert Jamak DO Work Phone: 1(785)[address]11-19-2024 14:20-0500 Body aoqgjv876.8 cmRobert Jamak DO Work Phone: 3(641)[address] [place] [address]-19-2024 14:20-0500Body mass index (BMI) [Ratio]21.09 kg/o6Rbrjetmarsha Yunk DO Work Phone: [address] [place], [place] [address]Hgsrsfmkuj68-12-6683 14:20-0500Body xeqego75.68 kgRobmarsha Tejeda DO Work Phone: [address] [place], [place] [address]Vhazyavnic60-79-0470 14:20-0500Diastolic blood zlemqgzb83 mm[Hg]Marie Tejeda DO Work Phone: [place] [address]Jemwhztfnl58-78-7766 14:20-0500Heart rate61 /min Marie Tejeda DO Work Phone: [place] [address]Kpuentstld01-89-0883 14:20-2592UjP6% (BldA) [Mass fraction]97 %Marie Tejeda DO Work Phone: 0(540)078-77[place] [address]Camjdauhat70-91-1624 14:20-0500Systolic blood bdybadez670 mm[Hg]Marie Tejeda DO Work Phone: [place] [address]Hyafcobtki87-91-0112 08:00-0500Body ifsrnphlvqv60 [degF]Marie Tejeda DO Work Phone: [facility]11-14-2024 08:00-0500 Diastolic blood iiqmohcy05 mm[Hg]Marie Tejeda DO Work Phone: 3(119)174-[address] [place], [place] 7172211-14-2024 08:00-0500 Heart rate60 /minRobert Vaschak DO Work Phone: 6(151)524-[address] [place], [place] 7172211-14-2024 08:00-0500 Respiratory rate16 /minRobert Vaschak DO Work Phone: 3(982)[address]11-14-2024 08:00-0500 SaO2% (BldA) [Mass fraction]97 %Marie Vaschak DO Work Phone: 1(798)[address]11-14-2024 08:00-0500 Systolic blood vhcmxcea909 mm[Hg]Marie Vaschak DO Work Phone: 8(648)[address]11-14-2024 06:00-0500 Body fxrkuy72 kgRobert Vaschak DO Work Phone: 5(414)[address]11-13-2024 20:12-0500 Body luqrlf537.8 cmRobert Vaschak DO Work Phone: 1(522)[address]11-13-2024 19:25-0500 Inhaled oxygen flow rate10 L/minRobert Vaschak DO Work Phone: 9(441)[address]10-30-2024 11:10-0400 Diastolic blood kuhjpyeq84 mm[Hg]DO Marie Vaschak Work Phone: 5(952)[address]10-30-2024 11:10-0400 Heart rate61 /minDO Marie Vaschak Work Phone: 5(224)1-[address] [place], [place] 7172210-30-2024 11:10-0400 Systolic blood yjnnnqaz797 mm[Hg]DO Marie Vaschak Work Phone: 7(630)7-[address] [place], [place] 7172210-30-2024 11:00-0400 Body xawnfu626.8 cmDO Marie Vaschak Work Phone: 3(486)777-[address] [place], [place] 7172210-30-2024 11:00-0400 Body mass index (BMI) [Ratio]21.9 kg/m2DO Marie Vaschak Work Phone: 1(090)[address]10-30-2024 11:00-0400 Body dpyyne21.39 kgDO Marie Tejeda Work Phone: 1(554)[address]10-30-2024 11:00-0400 Respiratory rate18 /minDO Marie Jamak Work Phone: 8(837)[address]10-30-2024 11:00-0400 SaO2% (BldA) [Mass fraction]98 %DO Marie Tejeda Work Phone: 1(378)[address] [place], [place] 9781810-16-2024 14:14-0400 Diastolic blood iujawgch59 mm[Hg]DO Marie Ileana Work Phone: 1(011)[address]10-16-2024 14:14-0400 Systolic blood mm[Hg]DO Marie Tejeda Work Phone: 1(022)[address] [place], [place] 9781810-16-2024 13:23-0400 Body zqoewq992.8 cmDO Marie Tejeda Work Phone: 1(686)[address] [place], [place] 9781810-16-2024 13:23-0400 Body mass index (BMI) [Ratio]22.2 kg/m2DO Marie Tejeda Work Phone: 9(937)[address] [place], [place] 9781810-16-2024 13:23-0400 Body zdgkuj68.3 kgDO Marie Tejeda Work Phone: 6(070)[address] [place], [place] 9781810-16-2024 13:23-0400 Heart rate56 /minDO Marie Tejeda Work Phone: 4(094)[address]10-16-2024 13:23-0400 Respiratory rate18 /minDO Marie Yunk Work Phone: 8(149)[address]10-16-2024 13:23-0400 SaO2% (BldA) [Mass fraction]94 %DO Marie Ileana Work Phone: 1(605)[address] [place], [place] 9781810-16-2024 10:24-0400 Diastolic blood frobwczy16 mm[Hg]DO Marie Tejeda Work Phone: [facility]10-16-2024 10:24-0400 Heart rate55 /Eleazar Tejeda Work Phone: [facility]10-16-2024 10:24-0400 Respiratory rate12 /Eleazar Tejeda Work Phone: [facility]10-16-2024 10:24-0400 SaO2% (BldA) [Mass fraction]97 %DO Marie Tejeda Work Phone: [facility]10-16-2024 10:24-0400 Systolic blood tyutdsjp674 mm[Hg]DO Marie Tejeda Work Phone: [facility]10-14-2024 15:59-0400 Diastolic blood aptdyaxx18 mm[Hg]Anatoly Cally DIRECTOR OF CUSTOMER ACQUISITION Work Phone: [facility] HospitalRnuqsbgver90-69-4640 15:59-0400Heart rate50 /min Yuerong Cally DIRECTOR OF CUSTOMER ACQUISITION Work Phone: [facility] HospitalZkelpbwxwe85-10-5970 15:59-3963SsX9% (BldA) [Mass fraction]90 %Yuerong Cally DIRECTOR OF CUSTOMER ACQUISITION Work Phone: [facility] HospitalGypajpcbac74-01-5541 15:59-0400Systolic blood iexyyhne068 mm[Hg]Yuerong Cally DIRECTOR OF CUSTOMER ACQUISITION Work Phone: [facility] HospitalOjxxdsdtlr95-88-1055 10:52-0400Diastolic blood mm[Hg]Marie Jamak DO Work Phone: [facility] HospitalBukmuxtlcw54-60-8374 10:52-0400Heart rate52 /min Marie Vaschak DO Work Phone: [place] [address]Uvfounwuxm34-35-2488 10:52-1726CgB3% (BldA) [Mass fraction]94 %Marie Jamak DO Work Phone: [place] [address]Qurletgvnu67-77-5246 10:52-0400Systolic blood mm[Hg]Marie Jamak DO Work Phone: 5(727)474-08[facility] HospitalRxhwgjgaml25-66-3908 10:50-0400Body lspdar495.8 cmRobert Jamak DO Work Phone: [facility] HospitalQzqghvhvdi30-37-9324 10:50-0400Body mass index (BMI) [Ratio]20.81 kg/h4Vytmta Vaschak DO Work Phone: [facility] HospitalQpgfjvafow80-31-7450 10:50-0400Body ykbeey45.77 kgRobert Vaschak DO Work Phone: 5(405)[address]09-16-2024 11:09-0400Body qqcayv238.8 cmDO Marie Yunk Work Phone: 1(131)[address]09-16-2024 11:09-0400 Body mass index (BMI) [Ratio]20.9 kg/m2DO Marie Yunk Work Phone: 1(621)[address]09-16-2024 11:09-0400 Body hqykdy08.22 kgDO Marie Jamak Work Phone: 1(305)[address]09-16-2024 11:09-0400 Diastolic blood uyujyziw85 mm[Hg]DO Marie Jamak Work Phone: 7(910)[address]09-16-2024 11:09-0400 Heart rate61 /minDO Marie Yunk Work Phone: 6(999)[address]09-16-2024 11:09-0400 Respiratory rate18 /minDO Marie Yunk Work Phone: 0(443)423-[address] [place], [place] 7172209-16-2024 11:09-0400 SaO2% (BldA) [Mass fraction]97 %DO Marie Xavichak Work Phone: 5(801)0-[address] [place], [place] 7172209-16-2024 11:09-0400 Systolic blood ejqgihkb934 mm[Hg]DO Marie Xavichak Work Phone: 3(585)897-[address] [place], [place] 7172209-04-2024 11:08-0400 Diastolic blood ldpjacht72 mm[Hg]DO Marie Jamak Work Phone: 3(846)715-[address] [place], [place] 7172209-04-2024 11:08-0400 Heart rate59 /Eleazar Yunk Work Phone: 1(249)617-[address] [place], [place] 7172209-04-2024 11:08-0400 Systolic blood gvnxjxib330 mm[Hg]DO Marie Xavichak Work Phone: 1(701)911-[address] [place], [place] 7172209-04-2024 11:07-0400 Respiratory rate18 /TitaO Marie Yunk Work Phone: 2(140)[address]09-04-2024 11:06-0400 Body ixxnod662.8 cmDO Marie Yunk Work Phone: 8(831)[address]09-04-2024 11:06-0400 Body mass index (BMI) [Ratio]21.5 kg/m2DO Marie Yunk Work Phone: 1(596)[address]09-04-2024 11:06-0400 Body qczjga01.03 kgDO Marie Tejeda Work Phone: 5(470)[address]09-04-2024 11:06-0400 SaO2% (BldA) [Mass fraction]95 %DO Marie Jamak Work Phone: 7(396)863-[address] [place], [place] 7172208-30-2024 11:01-0400 Diastolic blood hapmihmo01 mm[Hg]DO Marie Xavichak Work Phone: [address] [place], [place] 2863408-30-2024 11:01-0400 Heart rate45 /TitaO Marie Yunk Work Phone: 2(618)132-[address] [place], [place] 7172208-30-2024 11:01-0400 Systolic blood zafbmvxj011 mm[Hg]DO Marie Vaschak Work Phone: 9(054)333-[address] [place], [place] 7172208-28-2024 11:24-0400 Diastolic blood iewfrkoe28 mm[Hg]DO Marie Ileana Work Phone: [facility]08-28-2024 11:24-0400 Heart rate54 /Eleazar Tejeda Work Phone: [facility]08-28-2024 11:24-0400 Systolic blood iqyrkwvq754 mm[Hg]DO Marie Tejeda Work Phone: 1(764)573-[address] [place], [place] 7172208-21-2024 12:36-0400 Respiratory rate18 /minDO Marie Tejeda Work Phone: 1(063)234[address]08-21-2024 12:36-0400 SaO2% (BldA) [Mass fraction]97 %DO Marie Tejeda Work Phone: 6(833)[address]08-20-2024 13:29-0400 Diastolic blood hjdcwybq68 mm[Hg]DO Marie Tejeda Work Phone: 0(647)09165 [address]08-20-2024 13:29-0400 Heart rate52 /Eleazar Tejeda Work Phone: 1(577)285-[address] [place], [place] 7172208-20-2024 13:29-0400 Systolic blood eaxdbwmt22 mm[Hg]DO Marie Tejeda Work Phone: 5(223)[address]08-20-2024 13:25-0400 Respiratory rate18 /Eleazar Tejeda Work Phone: 0(721)255-[address] [place], [place] 7172208-20-2024 13:24-0400 Body kdvytg513.8 cmDO Marie Tejeda Work Phone: 3(426)183-[address] [place], [place] 7172208-20-2024 13:24-0400 Body mass index (BMI) [Ratio]21.4 kg/m2DO Marie Jamak Work Phone: 2(190)556-[address] [place], [place] 7172208-20-2024 13:24-0400 Body rogsqu39.58 kgDO Marie Yunk Work Phone: 2(790)942-[address] [place], [place] 7172208-20-2024 13:24-0400 SaO2% (BldA) [Mass fraction]99 %DO Marie Xavichak Work Phone: 1(973)285-[address] [place], [place] 7172208-06-2024 10:12-0400 Diastolic blood lpfssurd70 mm[Hg]DO Marie Jamak Work Phone: 1(642)901-[address] [place], [place] 7172208-06-2024 10:12-0400 Heart rate48 /minDO Marie Yunk Work Phone: 1(487)[address]08-06-2024 10:12-0400 Systolic blood ryeyiycn68 mm[Hg]DO Marie Jamak Work Phone: 1(017)[address]08-06-2024 10:11-0400 Body henqnj542.8 cmDO Marie Tejeda Work Phone: 1(266)[address]08-06-2024 10:11-0400 Body mass index (BMI) [Ratio]21.5 kg/m2DO Marie Tejeda Work Phone: 1(415)[address]08-06-2024 10:11-0400 Body lmjmar25.03 kgDO Marie Tejeda Work Phone: 1(442)[address]08-06-2024 10:11-0400 Respiratory rate18 /Eleazar Tejeda Work Phone: 1(013)[address]08-06-2024 10:11-0400 SaO2% (BldA) [Mass fraction]97 %DO Marie Ileana Work Phone: 1(258)432-[address] [place], [place] 7172207-30-2024 11:29-0400 Diastolic blood nqzglexd90 mm[Hg]DO Marie Ileana Work Phone: 9(833)[address]07-30-2024 11:29-0400 Heart rate45 /TitaO Marie Jamak Work Phone: 0(486)807-[address] [place], [place] 7172207-30-2024 11:29-0400 Respiratory rate16 /minDO Marie Jamak Work Phone: 1(753)051-[address] [place], [place] 7172207-30-2024 11:29-0400 SaO2% (BldA) [Mass fraction]98 %DO Marie Jamak Work Phone: 1(389)949-[address] [place], [place] 7172207-30-2024 11:29-0400 Systolic blood olxsljzz921 mm[Hg]DO Marie Xavichak Work Phone: 0(366)871-[address] [place], [place] 7172207-30-2024 07:59-0400 Body afxkxpjhkcl18.8 [degF]DO Marie Jamak Work Phone: 1(466)[address]07-30-2024 05:37-0400 Body lakdti73.9 kgDO Marie Tejeda Work Phone: 8(655)[address]07-28-2024 15:56-0400 Body ahttlc465.8 cmDO Mraie Tejeda Work Phone: 6(435)646-[address] [place], [place] 7172207-28-2024 00:57-0400 Diastolic blood bomikgwo16 mm[Hg]DO Marie Ileana Work Phone: 1(675)458-[address] [place], [place] 7172207-28-2024 00:57-0400 Heart rate58 /minDO Marie Tejeda Work Phone: 7(136)202-[address] [place], [place] 7172207-28-2024 00:57-0400 Respiratory rate18 /minDO Marie Tejeda Work Phone: [address] [place], [place] 2863407-28-2024 00:57-0400 SaO2% (BldA) [Mass fraction]100 %DO Marie Ileana Work Phone: [address] [place], [place] 2863407-28-2024 00:57-0400 Systolic blood xtexpuvx424 mm[Hg]DO Marie Jamak Work Phone: 2(144)133-[address] [place], [place] 7172207-27-2024 19:13-0400 Body .07 cmDO Marie Jamak Work Phone: 4(530)814-[address] [place], [place] 7172207-27-2024 19:13-0400 Body zyovukccmkz84.6 [degF]DO Marie Xavichak Work Phone: 9(623)635-[address] [place], [place] 7172207-27-2024 19:13-0400 Body xogolc10.5 kgDO Marie Tejeda Work Phone: [phone] [address] Street05-02-2024 13:50-0400 Diastolic blood uhrcgxct08 mm[Hg]DO Marie Tejeda Work Phone: 2(552)[address]05-02-2024 13:50-0400 Heart rate56 /Eleazar Tejeda Work Phone: 6(561)[address]05-02-2024 13:50-0400 Respiratory rate16 /TitaO Marie Tejeda Work Phone: 0(553)[address]05-02-2024 13:50-0400 SaO2% (BldA) [Mass fraction]97 %DO Marie Tejeda Work Phone: 2(244)[address]05-02-2024 13:50-0400 Systolic blood mm[Hg]DO Marie Tejeda Work Phone: 1(605)[address]05-02-2024 12:20-0400 Body ibyspj147.8 cmDO Marie Tejeda Work Phone: 4(244)[address]05-02-2024 12:20-0400 Body bgsoxd66.77 kgDO Marie Tejeda Work Phone: 6(595)7-[address] [place], [place] 7172204-18-2024 14:51-0400 Body myrcpe158.8 cmDO Marie Tejeda Work Phone: 4(248)368-[address] [place], [place] 7172204-18-2024 14:51-0400 Body mass index (BMI) [Ratio]20.9 kg/m2DO Marie Tejeda Work Phone: 3(935)660-[address] [place], [place] 7172204-18-2024 14:51-0400 Body .22 kgDO Marie YunQuantum [employer]PS Work Phone: 7(075)582-[address] [place], [place] 7172204-18-2024 14:51-0400 Diastolic blood znagfcrb95 mm[Hg]DO Marie Tejeda Work Phone: 1(317)[address]04-18-2024 14:51-0400 Heart rate64 /Eleazar Tejeda Work Phone: 1(056)[address]04-18-2024 14:51-0400 Respiratory rate18 /TitaO Marie Tejeda Work Phone: 1(186)307[address]04-18-2024 14:51-0400 SaO2% (BldA) [Mass fraction]96 %DO Marie Tejeda Work Phone: 1(770)[address]04-18-2024 14:51-0400 Systolic blood zkyctowr769 mm[Hg]DO Marie Ileana Work Phone: 1(805)[address]04-11-2024 08:36-0400 Body xqronk171.8 cmDO Marie [employer] Work Phone: 1(670)[address]04-11-2024 08:36-0400 Body mass index (BMI) [Ratio]21.2 kg/m2DO Marie MedivosunithaQuantum OPS Work Phone: 2(574)[address]04-11-2024 08:36-0400 Body tewzaj31.13 kgDO Marie [employer] OPS Work Phone: 1(669)[address]03-19-2024 10:26-0400 Body .8 cmDO Marie [employer] Work Phone: 1(205)[address]03-19-2024 10:26-0400 Body mass index (BMI) [Ratio]21.2 kg/m2DO Marie MedivosunithaQuantum OPS Work Phone: 9(167)673-[address] [place], [place] 7172203-19-2024 10:26-0400 Body qeejtl91.13 kgDO Marie JamaQuantum OPS Work Phone: 2(384)786-[address] [place], [place] 7172203-18-2024 15:40-0400 Diastolic blood tjwmjnio93 mm[Hg]DO Marie Xavichak Work Phone: [facility]03-18-2024 15:40-0400 Heart rate72 /Eleazar Tejeda Work Phone: [facility]03-18-2024 15:40-0400 Systolic blood mqdkdyof966 mm[Hg]DO Marie Tejeda Work Phone: 8(085)[address]02-26-2024 12:00-0500 Body gqasaspdyse74.4 [degF]DO Marie Tejeda Work Phone: [address] [place], [place] 2863402-26-2024 12:00-0500 Diastolic blood hhalmixp13 mm[Hg]DO Marie Tejeda Work Phone: 1(548)187-[address] [place], [place] 7172202-26-2024 12:00-0500 Heart rate67 /Eleazar Tejeda Work Phone: [address] [place], [place] 2863402-26-2024 12:00-0500 Respiratory rate16 /Eleazar Tejeda Work Phone: [address] [place], [place] 2863402-26-2024 12:00-0500 SaO2% (BldA) [Mass fraction]97 %DO Marie Tejeda Work Phone: [phone]02-26-2024 12:00-0500 Systolic blood ykrccbqr213 mm[Hg]DO Marie Tejeda Work Phone: [facility]02-26-2024 06:00-0500 Body bypcph12.2 kgDO Marie Tejeda Work Phone: [facility]02-21-2024 15:42-0500 Body uqfuah735.8 cmDO Marie Tejeda Work Phone: [facility]02-05-2024 14:07-0500 Body axrhsv009.8 cmSammy Berman APRN-KALANI Work Phone: [facility]02-05-2024 14:07-0500 Body mass index (BMI) [Ratio]20.09 kg/e5BkhdkSammy Berman SENIOR DYNAMICS CRM DEVELOPER-UTILITY SYSTEM OPERATOR Work Phone: [facility]02-05-2024 14:07-0500 Body .5 kgSammy Berman SENIOR DYNAMICS CRM DEVELOPER-UTILITY SYSTEM OPERATOR Work Phone: [facility]02-05-2024 14:07-0500 Diastolic blood ilibdjaa31 mm[Hg]Sammy Berman SENIOR DYNAMICS CRM DEVELOPER-UTILITY SYSTEM OPERATOR Work Phone: [facility]02-05-2024 14:07-0500 Heart rate72 /Markus Berman SENIOR DYNAMICS CRM DEVELOPER-UTILITY SYSTEM OPERATOR Work Phone: [facility]02-05-2024 14:07-0500 Systolic blood mzkbpiig396 mm[Hg]Sammy Berman SENIOR DYNAMICS CRM DEVELOPER-UTILITY SYSTEM OPERATOR Work Phone: [facility]01-05-2024 22:45-0500 Diastolic blood erovwmcc71 mm[Hg]DO Marie Tejeda Work Phone: [facility]01-05-2024 22:45-0500 Heart rate69 /Eleazar Tejeda Work Phone: [address] [place], [place] 2863401-05-2024 22:45-0500 Respiratory rate16 /Eleazar Yunk Work Phone: [address] [place], [place] 2863401-05-2024 22:45-0500 SaO2% (BldA) [Mass fraction]98 %DO Marie Tejeda Work Phone: [facility]01-05-2024 22:45-0500 Systolic blood mm[Hg]DO Marie Hurleychak Work Phone: [facility]01-05-2024 13:24-0500 Body aagghs241.8 cmDO Marie Yunk Work Phone: [facility]01-05-2024 13:24-0500 Body .7 [degF]DO Marie Yunk Work Phone: [facility]01-05-2024 13:24-0500 Body vjrcir25.95 kgDO Marie Tejeda Work Phone: [facility]11-14-2023 13:41-0500 Diastolic blood fgijywgu55 mm[Hg]Govind Davis DO Work Phone: [facility]11-14-2023 13:41-0500 Systolic blood tkewifvj842 mm[Hg]Govind Davis DO Work Phone: [facility]11-14-2023 13:37-0500 Body geszna602.8 cmWieron Davis DO Work Phone: [address] [place], [place] 5616611-14-2023 13:37-0500 Body mass index (BMI) [Ratio]19.51 kg/q6KfujrzcGovind Davis DO Work Phone: [facility]11-14-2023 13:37-0500 Body .69 kgWieron Davis DO Work Phone: [facility]11-14-2023 13:37-0500 Heart rate70 /minGovind Davis DO Work Phone: [facility]10-28-2023 10:33-0400 Diastolic blood diguitki21 mm[Hg]DO Marie Tejeda Work Phone: [facility]10-28-2023 10:33-0400 Heart rate97 /Eleazar Tejeda Work Phone: [facility]10-28-2023 10:33-0400 Respiratory rate18 /minDJuan Ramon Yunk Work Phone: [facility]10-28-2023 10:33-0400 Systolic blood bfypbbqz903 mm[Hg]DO Marie Jamak Work Phone: [facility]10-28-2023 05:00-0400 Body qilddkeqkhz65.8 [degF]DO Marie Xavichak Work Phone: 1(419)[address]10-28-2023 05:00-0400 SaO2% (BldA) [Mass fraction]97 %DO Marie Tejeda Work Phone: 1(740)[address]10-24-2023 11:00-0400 Body awhfeb392.8 cmDO Marie Tejeda Work Phone: 9(507)[address] [place], [place] 9781810-23-2023 16:44-0400 Body .4 kgDO Marie Tejeda Work Phone: 1(451)[address] [place], [place] 9781810-23-2023 11:48-0400 Body lhmmatavjsw68.1 [degF]DO Marie Tejeda Work Phone: 2(972)[address] [place], [place] 9781810-23-2023 11:48-0400 Diastolic blood kttoujmn28 mm[Hg]DO Marie Tejeda Work Phone: 1(182)[address] [place], [place] 9781810-23-2023 11:48-0400 Heart rate55 /Eleazar Tejeda Work Phone: 1(163)[address] [place], [place] 9781810-23-2023 11:48-0400 Respiratory rate18 /Eleazar Tejeda Work Phone: 0(062)[address]10-23-2023 11:48-0400 SaO2% (BldA) [Mass fraction]99 %DO Marie Tejeda Work Phone: 0(088)[address]10-23-2023 11:48-0400 Systolic blood qgebdvgx045 mm[Hg]DO Marie Tejeda Work Phone: 1(643)[address]10-23-2023 05:40-0400 Body .6 kgDO Marie Tejeda Work Phone: 0(054)[address]10-22-2023 00:00-0400 Inhaled oxygen flow rate6 L/Eleazar Tejeda Work Phone: 1(473)[address]10-20-2023 15:31-0400 Body mass index (BMI) [Ratio]18.8 kg/m2DO Marie Tejeda Work Phone: 1(847)[address]10-20-2023 15:25-0400 Body .34 cmDO Marie Tejeda Work Phone: 5(278)[address]10-18-2023 16:32-0400 Heart rate63 /Eleazar Tejeda Work Phone: 1(730)[address]10-18-2023 16:24-0400 Diastolic blood papxxgcy14 mm[Hg]DO Marie Tejeda Work Phone: 1(268)[address]10-18-2023 16:24-0400 Respiratory rate18 /Eleazar Tejeda Work Phone: 1(256)[address]10-18-2023 16:24-0400 SaO2% (BldA) [Mass fraction]98 %DO Marie Tejeda Work Phone: 1(268)[address] [place], [place] 9781810-18-2023 16:24-0400 Systolic blood mm[Hg]DO Marie Tejeda Work Phone: 1(054)[address] [place], [place] 9781810-18-2023 13:34-0400 Body yiltxoktzsp60.2 [degF]DO Marie Tejeda Work Phone: 1(884)[address]10-18-2023 12:19-0400 Body ekmiqu581.34 cmDO Marie Tejeda Work Phone: 1(030)[address]10-18-2023 12:19-0400 Body jktico12.41 kgDO Marie Tejeda Work Phone: 1(508)[address]06-29-2022 09:35-0400 Diastolic blood tvjqchiz77 mm[Hg]Gray Ross MD Work Phone: bon [facility]06-29-2022 09:35-0400Systolic blood fysvnktt510 mm[Hg]Gray Ross MD Work Phone: bon [facility]06-29-2022 07:46-0400Body .81 [degF]Gray Ross MD Work Phone: bon [facility]06-29-2022 07:46-0400Heart rate64 /minGray Ross MD Work Phone: bON [facility]06-29-2022 07:46-0400 Respiratory rate15 /minGray Ross MD Work Phone: bon [facility]06-29-2022 07:46-3519GyF7% (BldA) [Mass fraction]98 %Gray Ross MD Work Phone: bON [facility]06-25-2022 04:00-0400Body .8 cmGray Ross MD Work Phone: bON [facility]06-25-2022 04:00-0400Body mass index (BMI) [Ratio]20.81 kg/t3FjgoyuzGray Ross MD Work Phone: bon [facility]06-25-2022 04:00-0400Body gjxekl62.8 kgGray Ross MD Work Phone: bon [facility] Encounters Encounter DateEncounter TypeCare ProviderFacilityStart: 05-21-2025 End: 19-51-7840nzcmklgnnaOlhkbnp P COOKFacility:EU [place]vueStart: 05-21-2025 End: 03-99-6108Tkxjcay encounter procedureTristan MELCHOR [facility] start: 05-17-2025 End: 64-69-1843Ficgagswn department patient visitAstrit H NicolasariFacility:[facility] Start: 05-10-2025 End: 73-96-5519Nxominair Result EncounterGeneric External Data ProviderNOMS External Department UnsolicitedStart: 05-10-2025 End: 88-36-1036Kgoqowbac Result EncounterGeneric External Data ProviderNOMS External Department UnsolicitedStart: 05-09-2025 End: 59-12-4137rvkhxvpxdtYxdyum Ileana DO Work Phone: 3([phone])503-8870711-4470-Ymqxpqskt Health CardiologyStart: 05-09-2025 End: 79-15-6454Bsbydtm encounter procedureAnat Perez MD-[facility] Cardiology Work Phone: Start: 05-08-2025 End: 80-15-6397Rvoxdtduk Result EncounterGeneric External Data ProviderNOMS External Department UnsolicitedStart: 05-08-2025 End: 75-25-7313Iminbfnbe Result EncounterGeneric External Data ProviderNOMS External Department UnsolicitedStart: 05-03-2025 End: 41-80-5294kuqhnruhvxWORLZDC MARSHALLFacility:[facility] Start: 05-02-2025 End: 71-94-2314nkxishhxkqPSB WARCHOLNot AvailableStart: 05-02-2025 End: 79-08-4240Hljnhr outpatient visit 40 minutesMarga Robledo NP Work Phone: 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); Benign prostatic hyperplasia with urinary frequency; H/O splenectomy; Acquired total absence of pancreas; ICD (implantable cardioverter-defibrillator) in place; PacemakerStart: 04-25-2025 End: 10-74-4869guptwxghmiJpcuvdz P COOKFacility:EU kStart: 04-25-2025 End: 09-82-8124Ssidevq encounter procedureTristan MELCHOR [facility] Start: 04-18-2025 End: 08-03-4273rtowdwautdZjbcter P COOKFacility:EU Johnnietart: 04-18-2025 End: 67-09-3398Chbgsto encounter procedureGreggiuliano MELCHOR [facility] Start: 66-76-9358zrioxbcusrOihgbt HajdariFacility:EU [place]Start: 04-09-2025 End: 97-96-1755Pupurgvrq Result EncounterGeneric External Data ProviderNOMS External Department UnsolicitedStart: 04-09-2025 End: 17-81-7853Dgjtmnlkt Result EncounterGeneric External Data ProviderNOMS External Department UnsolicitedStart: 04-09-2025 End: 66-63-5163yjqwfdnfzbZQXLYDY MARSHALLFacility:[facility] Start: 04-09-2025 End: 76-82-9618qjwsqbhvbcGYNJZX TRU TEJEDAFacility:[facility] Start: 04-02-2025 End: 64-78-0080Cxzinfxth Result EncounterGeneric External Data ProviderNOMS External Department UnsolicitedStart: 04-02-2025 End: 62-37-2122Ejzfeuayu Result EncounterGeneric External Data ProviderNOMS External Department UnsolicitedStart: 03-28-2025 End: 79-02-8521Izfbtb-up encounterMelrudi Peguero LPNEndocrinologyStart: 03-27-2025 End: 53-24-5367ldicxxrjpoRrsvnj Vaschak DO Work Phone: [facility] Work Phone: Start: 03-27-2025 End: 42-02-4381Odhirlv encounter procedureAnat Perez MD-[facility] Cardiology Work Phone: Start: 03-16-2025 End: 23-16-8546Ciqdtg Cesar Zavala APRN.CNP Work Phone: EndocrinologyStart: 03-02-2025 End: 50-47-2347gpfwllfbhlOljxzd IleanaFacility:[facility]alt[facility]art: 30-60-5912Nmt-patient / Non-visitMikel Root-Heart Rhythm ClinicStart: 02-13-2025 End: 78-47-3233Knzbzodqd Result EncounterGeneric External Data ProviderNOMS External Department UnsolicitedStart: 02-13-2025 End: 08-34-0345Bzbxtvyrb Result EncounterGeneric External Data ProviderNOMS External Department UnsolicitedStart: 02-05-2025 End: 51-66-1202opcufcpaqmKfjxusm Bayer APRN.CNP Work Phone: RheumatologyComment on above:Blood testStart: 02-05-2025 End: 94-52-0331Jpzdhbfje encounterAyana Zavala APRN.CNP Work Phone: EndocrinologyStart: 01-16-2025 End: 54-57-8697uoriqtcazbZRAFOO J VASCHAKNot AvailableStart: 01-08-2025 End: 38-91-7410Csdffh OnlyRobert J Vaschak DO Work Phone: noms External Department UnsolicitedStart: 01-02-2025 End: 34-32-1535Qeiovy outpatient visit 25 minutesRobert J Medivochak DO Work Phone: [facility] SWS IMComment on above:Pancreatic insufficiency (HCC) (Primary Dx); PleurisyStart: 01-02-2025 End: 94-54-6102njdbtkdmaxJLFCKC J VASCHAKNot AvailableStart: 01-01-2025 End: 25-24-1324qbvpigomasEvybeczAnastasia Zavala APRN.CNP Work Phone: EndocrinologyComment on above:Rx for sensorsStart: 12-26-2024 End: 95-51-0215pubfldegyrXkzpfmmNohelia Zavala APRN.CNP Work Phone: EndocrinologyComment on above:SensorsStart: 12-19-2024 End: 33-38-4398Ptcutdbqr encounterAyana Zavala APRN.CNP Work Phone: EndocrinologyComment on above:Refill RequestStart: 12-12-2024 End: 87-01-9438NqmmnvFpvmhuiAyana Zavala APRN.CNP Work Phone: EndocrinologyComment on above:Refill RequestStart: 11-30-2024 End: 15-44-4516eyyeiyfcwhDqrkkn VaschakFacility:[facility] Healthtart: 01-19-4211Mdf-patient / Non-visitMaria Parham Health Phys[facility]-Heart Rhythm ClinicStart: 11-01-2024 End: 70-20-0139hubfxkpzfvVjdpsjoNohelia Zavala APRN.CNP Work Phone: EndocrinologyComment on above:Medication changeStart: 10-26-2024 End: 10-80-6568Esbenxl encounter procedureAyana Zavala APRN.CNP Work Phone: EndocrinologyComment on above: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, with long-term current use of insulin(HCC) (Primary Dx); 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); Insulin pump status; Insulin pump titrationStart: 10-26-2024 End: 71-77-1162maduqcvyjrVPQXOSRy Brumfieldcility:[facility] Start: 10-23-2024 End: 66-78-5785Hxhkurxrt Result EncounterGeneric External Data ProviderNOMS External Department UnsolicitedStart: 10-23-2024 End: 02-26-6816Uuvpjcxqn Result EncounterGeneric External Data ProviderNOMS External Department UnsolicitedStart: 10-13-2024 End: 61-29-4489Sygkytgtv encounterGaye Mata RNDiUT Health [facility] FHCComment on above:Omnipod/Dexcom issuesStart: 10-13-2024 End: 42-64-7938ielqunmvnzWvailn Vaschak DO Work Phone: [facility] Work Phone: Start: 10-13-2024 End: 50-89-0062Eohdlzy encounter procedureRobmarsha Tejeda DO Work Phone: [facility] Work Phone: Start: 10-11-2024 End: 47-52-4489Cbohmzejn encounterAyana Zavala APRN.CNP Work Phone: EndocrinologyComment on above:Insurance Authorization (insulin pump cart,auto,BT,G6/7 (OMNIPOD 5 G6-G7 PODS, GEN 5,) crtg)Omnipod 5/Dexcom G7 issuesStart: 10-10-2024 End: 76-97-0511Icatxrszf encounterGaye TorresUT Health [facility] Hospital FHCComment on above:Dexcom G7 CGM supply issuesStart: 10-04-2024 End: 71-64-9790CzxnygQpsfgdeLashon Zavala APRN.CNP Work Phone: EndocrinologyComment on above:Med Change RequestStart: 10-04-2024 End: 88-69-2367Unujdrrxx encounterGaye TorresUT Health [facility] FHCComment on above:Omnipod 5/Dexcom helpDexcom G7 CGM supply issues Start: 09-27-2024 End: 66-19-9246bognoaczacYzvmhknNohelia Zavala APRN.CNP Work Phone: EndocrinologyComment on above:GlucoseStart: 09-27-2024 End: 99-70-2746Wxuaosaqe encounterGaye TorresUT Health [facility] FHCComment on above:Omnipod 5 pump follow up callStart: 09-26-2024 End: 30-94-1724Jeouya-up encounterAyana Zavala APRN.CNP Work Phone: EndocrinologyStart: 09-26-2024 End: 09-43-6344Cdkjdrfkf Aisha Zavala APRN.CNP Work Phone: EndocrinologyStart: 09-25-2024 End: 65-32-6512cegbmyehctYEGLWK JOSEPH VASCHAKFacility:[facility] Start: 09-25-2024 End: 56-44-0810Auvowki encounter Margaret Zavala APRN.CNP Work Phone: EndocrinologyComment on above: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, with long-term current use of insulin(HCC) (Primary Dx); 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); Insulin pump status; Insulin pump titrationStart: 09-22-2024 End: 51-38-7176Hfxegx OnlyAyana Zavala APRN.CNP Work Phone: EndocrinologyComment on above: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, with long-term current use of insulin(HCC) (Primary Dx)Omnipod 5 pump issueStart: 09-21-2024 End: 72-87-7519Igjooakxq encounterGaye Torresabetic [facility] TexSan Hospitalment on above:Omipod 5 upgrade follow up callStart: 09-13-2024 End: 39-38-0270Yhcgabczo Result EncounterGeneric External Data ProviderNOMS External Department UnsolicitedStart: 09-13-2024 End: 73-94-8353Llkcfxgtk Result EncounterGeneric External Data ProviderNOMS External Department UnsolicitedStart: 09-04-2024 End: 02-95-7039genbwkaxnoWZMDOV TRU ILEANAFacility:[facility] Start: 09-04-2024 End: 81-05-3682Ybdyaxe evaluation of patient and reportGaye Torresabetic [facility] Budaomment on above: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, with long-term current use of insulin(HCC) (Primary Dx)Start: 08-31-2024 End: 22-23-7388Bjxlxaykp encounterGaye Torresabetic [facility] on above:AppointmentStart: 08-31-2024 End: 86-94-4001rrewlyffviKdvxzt Vaschak DO Work Phone: [facility] Work Phone: Start: 08-31-2024 End: 80-10-5024Lkczveq encounter procedureRobert Vaschak DO Work Phone: [facility] Cardiology Work Phone: Start: 08-30-2024 End: 61-45-6752Xjjzxe outpatient visit 40 minutesRobert Khoi Tejeda DO Work Phone: [facility] S[facility] IMComment on above:Abdominal wall abscess; Acquired total absence of pancreas; Insulin pump in place; Lower respiratory infection; ICD (implantable cardioverter-defibrillator) in place; H/O splenectomy; 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); Chronic systolic CHF (congestive heart failure), NYHA class 2 (CMS/HCC); Nonrheumatic mitral valve regurgitation; Pancreatic insufficiency (CMS/HCC)Start: 08-30-2024 End: 28-54-0766hejuguxawgYJSQEN Khoi VASSUNITHAKNot AvailableStart: 08-29-2024 End: 75-32-8983eckaijgsalIdyumu XavichakFacility:[facility]althtart: 60-54-0328Edt-patient / Non-visitRobert Vasjorge DO Work Phone: [facility]-Heart Rhythm ClinicStart: 08-15-2024 End: 56-89-1452Pulldyjho encounterKirsrosy Zavala APRN.CNP Work Phone: EndocrinologyComment on above:Forms ([employer]- Physcians order)Start: 08-09-2024 End: 58-01-9013Gsxjsjikm encounterKirsrosy Zavala APRN.CNP Work Phone: EndocrinologyComment on above:Forms ([employer] - [facility] note)Start: 07-25-2024 End: 35-14-1550yzwoyaebdnTRMHCS TRU TEJEDAFacility:[facility] Start: 07-25-2024 End: 67-67-6355Jsmdamn evaluation of patient and reportGaye TorresUT Health [facility] FHCComment on above: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, with long-term current use of insulin(HCC) (Primary Dx)Start: 07-21-2024 End: 46-33-4252Yvrsmqqqi Result EncounterGeneric External Data ProviderNOMS External Department UnsolicitedStart: 07-21-2024 End: 31-60-5148Hiiqqmqyq Result EncounterGeneric External Data ProviderNOMS External Department UnsolicitedStart: 07-21-2024 End: 31-47-5327Nflvgevfq encounterGaye TorresUT Health [facility] FHCComment on above:AppointmentStart: 07-20-2024 End: 44-90-3680xyiaplbzupVAEXCM J VASCHAKNot AvailableStart: 07-20-2024 End: 69-16-3299Sylvmntqfoqa care manage srvc 7 day dischargeYomi Chong NP Work Phone: [facility] IMComment on above:Chronic systolic CHF (congestive heart failure), NYHA class 2 (CMS/HCC) (Primary Dx); Pancreatic insufficiency (CMS/HCC); History of bleeding peptic ulcer; Coronary arteriosclerosis (CMS/HCC); 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); Orthostatic hypotension; BronchitisStart: 76-02-6759Tmp-patient / Non-visitRobert Vaschak DO Work Phone: [facility] Cardiology Work Phone: Start: 07-16-2024 End: 13-63-2056oidompfhnkLyxlspikg E DoamekporFacility:[facility] Healthtart: 07-16-2024 End: 53-50-3692Dfoqtcczbe and management of inpatientRobert Vaschak DO Work Phone: [facility] Work Phone: Start: 07-16-2024 End: 03-62-8723fdepsacxgso encounterRobert Vaschak DO Work Phone: [facility] Work Phone: Start: 07-13-2024 End: 90-36-8826C-mail encounter from Hollie TorresUT Health [facility] FHCStart: 07-13-2024 End: 54-62-3579Aworaewfz encounterGaye Mata RNDiUT Health [facility] Hospital FHCComment on above:Omnipod DASH to 5 pump upgradeStart: 07-13-2024 End: 84-05-0945skrgajumlzMifypt Kravetz RNDiUT Health [facility] FHCStart: 07-13-2024 End: 80-73-2142Skfhzb follow up visit related to original pxFredric H Itzkowinahomy DO Work Phone: noms ST GENSComment on above:Abdominal wall abscess (Primary Dx)Start: 07-06-2024 End: 80-42-0912Ysjhslgtt encounterAyana Zavala APRN.CNP Work Phone: EndocrinologyStart: 07-06-2024 End: 40-24-9427wxyonphqlyAWUUDPL BAYERFacility:[facility] Hospitaltart: 07-06-2024 End: 20-89-2290Xdtgdkc encounter Margaret Zavala APRN.CNP Work Phone: EndocrinologyComment on above: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, with long-term current use of insulin(HCC) (Primary Dx); 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); Insulin pump statusStart: 07-03-2024 End: 44-77-5109ktjdhrnegaIEZIKO VARGAS VNot AvailableStart: 07-03-2024 End: 01-75-1625Gljnut follow up visit related to original Charlotte Russo MD Work Phone: noms ST GENSComment on above:Abdominal wall abscess (Primary Dx)Start: 06-20-2024 End: 88-74-4378Sauxervi Result EncounterFredric H Itzkowitz DO Work Phone: noms External Department UnsolicitedStart: 06-20-2024 End: 66-17-4078Ygmcblmw Result EncounterFredric H Itzkowitz DO Work Phone: noms External Department UnsolicitedStart: 06-20-2024 Non-patient / Non-visitRobert Ileana DO Work Phone: [facility] ClinicStart: 06-19-2024 End: [id number] and management of inpatientRobert Vasjorge DO Work Phone: [facility] Work Phone: Start: 06-19-2024 End: 98-25-4836pfgucrvxpdZuygca JamakFacility:[facility]art: 06-19-2024 End: 93-20-1862Wrfytr outpatient visit 40 minutesRobert Khoi Tejeda DO Work Phone: [facility] IMComment on above:Abscess of abdominal wall (Primary Dx); ICD (implantable cardioverter-defibrillator) in place; H/O splenectomy; 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); Chronic systolic CHF (congestive heart failure), NYHA class 2 (CMS/HCC); Acquired total absence of pancreasStart: 06-19-2024 End: 97-42-2573rylzdpdkjzXGWQAQ Khoi RAPPot AvailableStart: 06-16-2024 End: 99-90-9389Stkdbzrxcj and management of inpatientRobert Ileana DO Work Phone: [facility] [place] [facility] Work Phone: Start: 05-30-2024 End: 45-08-5506Mtmduhyyacup care manage srvc 7 day dischargeRobert Khoi Tejeda DO Work Phone: [facility] IMComment on above:ICD (implantable cardioverter-defibrillator) in place (Primary Dx); Hospital discharge follow-up; 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); Acquired total absence of pancreas; Coronary arteriosclerosis (CMS/HCC); Insulin pump in place; 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); Moderate pulmonary arterial systolic hypertension (CMS/HCC); Nonrheumatic mitral valve regurgitation; Chronic systolic CHF (congestive heart failure), NYHA class 2 (CMS/HCC)Start: 05-30-2024 End: 48-75-1857qtbfnbqwoyUXJCXA J JAMAKNot AvailableStart: 46-53-8549Glv- patient / Non-visitRobert Vaschak DO Work Phone: [facility] Card[facility] Work Phone: Start: 05-24-2024 End: 77-98-9922Mtmfsrqpfi and management of inpatientRobert Vaschak DO Work Phone: [facility] [place] [facility] Work Phone: Start: 91-13-5534Wqa-patient / Non-visitRobert Vaschak DO Work Phone: [facility]-Heart Rhythm ClinicStart: 05-16-2024 End: 72-39-2355Mprkgvr encounter procedureDO Marie Tejeda Work Phone: [facility]-Pre-Surgical Testing Work Phone: Start: 05-16-2024 End: 39-66-6568yfqtrqhljhDI Marie Tejeda Work Phone: [facility] Work Phone: Start: 99-96-9962Rjlvajirl for preprocedural laboratory examinationSGoshen General Hospital Physician GroupStart: 05-10-2024 End: 32-00-6471eqganazjseOU Marie Tejeda Work Phone: [facility] Work Phone: Start: 05-10-2024 End: 12-70-8004Rbjqzod encounter procedureDO Marie Tejeda Work Phone: [facility] Work Phone: Start: 04-26-2024 End: 41-04-1453wxmpovvucfLU Marie Tejeda Work Phone: [facility] Work Phone: Start: 04-26-2024 End: 52-45-4501Nghuomo encounter procedureDO Marie Tejeda Work Phone: [facility] Work Phone: Start: 04-26-2024 End: 94-29-4705Rcodhcq encounter procedureDO Marie Yunbrody Work Phone: [facility]-Heart Rhythm ClinicStart: 04-26-2024 End: 36-85-4519retieftrcyCT Marie Tejeda Work Phone: [facility] Work Phone: Start: 04-24-2024 End: 19-86-7538Qpocsf outpatient visit 25 minutesAnatoly Anne NP Work Phone: [facility] IMComment on above:Pancreatic insufficiency (CMS/HCC) (Primary Dx); Coronary arteriosclerosis (CMS/HCC); 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 (CMS/HCC); 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); H pylori ulcerStart: 04-17-2024 End: 05-37-2158Ryfouq outpatient visit 40 minutesMarie Westfall Xavijorge CURTIS Work Phone: [facility] IMComment on above:Bronchitis (Primary Dx); Type 1 diabetes mellitus with [...] Acute on chronic systolic congestive heart failure (CMS/HCC)Start: 04-17-2024 End: 83-91-3647Obfrbxv encounter procedureRobert Khoi Tejeda DO Work Phone: [facility] HealthcareStart: 04-05-2024 End: 26-76-8389nriugltnqeXNQGQIYGOhioHealth Start: 03-27-2024 End: 71-15-9483hjsiwgthhvIP Marie Tejeda Work Phone: [facility] Work Phone: Start: 03-27-2024 End: 45-52-9983Hkbfbwr encounter procedureDO Marie Tejeda Work Phone: [facility] Work Phone: Start: 03-15-2024 End: 30-16-3875zgmamwiaknYS Marie Tejeda Work Phone: [facility] Work Phone: Start: 03-15-2024 End: 19-18-0985Zervjog encounter procedureDO Marie Tejeda Work Phone: [facility] Work Phone: Start: 03-10-2024 End: 59-35-2247mivfbssfhsUA Marie Tejeda Work Phone: [facility] Work Phone: Start: 03-10-2024 End: 96-12-8048Untxhlycwg RecurringDO Marie Tejeda Work Phone: [facility]-Infusion Therapy - O/P Work Phone: Start: 03-09-2024 End: 08-96-2090Qdetgud encounter procedureDO Marie Tejeda Work Phone: [facility]-Electrodiagnostics Work Phone: Start: 03-09-2024 End: 14-52-7511xiicsvfebdGX Marie Tejeda Work Phone: [facility] Work Phone: Start: 21-33-4817Wqr-patient / Non-visitDO Marie Xavijorge Work Phone: [facility] Work Phone: Start: 28-68-4608Jdqquaakxo RecurringDO Marie Hurleysunithabrody Work Phone: [facility]-Infusion Therapy - O/P Work Phone: Start: 02-29-2024 End: 88-33-9652xbwqrhchcjKJ Marie Hurleyjorge Work Phone: [facility] Work Phone: Start: 02-29-2024 End: 99-20-3495Gucanyp encounter procedureDO Marie Xavijorge Work Phone: [facility] Work Phone: Start: 02-16-2024 End: 06-49-9082gwqjlgurflCG Marie Tejeda Work Phone: [facility] Work Phone: Start: 02-16-2024 End: 41-70-3768Ognsiev encounter procedureDO Marie Hurleysunithabrody Work Phone: [facility]-Lab Main [place] Work Phone: Start: 02-15-2024 End: 96-00-0928jccnorwuajEK Marie Hurleysunithabrody Work Phone: [facility] Work Phone: Start: 02-15-2024 End: 07-47-8753Jgbppse encounter procedureDO Marie Tejeda Work Phone: [facility] Work Phone: Start: 02-14-2024 End: 68-44-3072zcvruvpymbAY Marie Xavijorge Work Phone: [facility] Work Phone: Start: 02-14-2024 End: 92-99-7460Dprxiav encounter procedureDO Marie Tejeda Work Phone: [facility]-Lab Main [place] Work Phone: Start: 02-11-2024 End: 31-20-1711pnxrxptntjHU Marie Tejeda Work Phone: [facility] Work Phone: Start: 02-11-2024 End: 59-15-1272Gatjlir encounter procedureDO Marie Tejeda Work Phone: [facility]-Lab [facility] [place] Work Phone: Start: 97-99-2898Ffm-patient / Non-visitDO Marie Tejeda Work Phone: [facility] Work Phone: Start: 02-93-7746Vdf-patient / Non-visitDO Marie Tejeda Work Phone: [facility] Gastroenterology Work Phone: Start: 02-05-2024 End: 95-89-2899Atedqcjzoy and management of inpatientDO Marie Tejeda Work Phone: [facility] [place] [facility] Work Phone: Start: 01-24-2024 End: 52-83-7016kbgixltlhhQKXO D BROOKENSProMedica Newburyport HospitalStart: 01-21-2024 End: 30-85-0937Cgbdhvpsjp and management of inpatientVENU GOSCOTTA Светлана EUCEDANA [facility] HospitalStart: 12-28-2023 End: 20-56-3115Nsdqvfdrv Result EncounterGeneric External Data ProviderNOMS External Department UnsolicitedStart: 12-28-2023 End: 88-31-5489Wuwpvavvy Result EncounterGeneric External Data ProviderNOMS External Department UnsolicitedStart: 60-11-0086Mci-patient / Non-visitDO Marie Hurleyjorge Work Phone: [facility] Work Phone: Start: 11-11-2023 End: 59-80-4828Khevtagoj to same day surgery centerDO Marie Hurleyjorge Work Phone: [facility]-Digestive Health Work Phone: Start: 11-04-2023 End: 05-21-4562pkkdyxpmlzKfzf ProviderFacility:[facility] Hospitaltart: 10-28-2023 End: 95-71-9847phnexlfuphMM Marie Tejeda Work Phone: [facility] Work Phone: Start: 10-28-2023 End: 57-67-3272Ftprevj encounter procedureDO Marie Yunbrody Work Phone: [facility] Work Phone: Start: 10-21-2023 End: 23-00-8526tpczbmajpkPC Marie Tejeda Work Phone: [facility] Work Phone: Start: 10-21-2023 End: 63-19-6558Xejymsc encounter procedureDO Marie Tejeda Work Phone: [facility] G[facility] Work Phone: Start: 10-13-2023 End: 13-25-3538ngkdgzfbsqAqnl ProviderFacility:[facility] Hospitaltart: 09-28-2023 End: 96-43-1700afdktfacvpQA Marie Yunbrody Work Phone: [facility] Work Phone: Start: 09-28-2023 End: 50-33-0994Dbopfea encounter procedureDO Marie Yunbrody Work Phone: [facility] Neurosurgery Work Phone: start: 09-27-2023 End: 53-26-4897dlxvhjaavrQJ Marie Tejeda Work Phone: [facility] Work Phone: Start: 09-27-2023 End: 01-63-8075Pzizkwvgqv RecurringDO Marie Tejeda Work Phone: [facility]-Infusion Therapy - O/P Work Phone: Start: 09-24-2023 End: 76-58-7435qbyabbmkzsUC Marie Tejeda Work Phone: [facility] Work Phone: Start: 09-24-2023 End: 26-30-9993Rrivoqj encounter procedureDO Marie Tejeda Work Phone: [facility]-XRay [facility] [place] Work Phone: Start: 97-31-5923Dmc-patient / Non-visitDO Marie Tejeda Work Phone: [facility] Work Phone: Start: 12-06-8780Ypa-patient / Non-visitDO Marie Tejeda Work Phone: [facility] Work Phone: Start: 08-31-2023 End: 25-33-9512Yoyjtvxmol and management of inpatientDO Marie Tejeda Work Phone: [facility] [place] [facility] Work Phone: Start: 08-16-2023 End: 13-60-2121lzfjljghhfPKWBD K SMITHClay [employer] Other Start: 08-16-2023 End: 09-94-9693Xedrsw outpatient visit 15 minutesSammy Berman SENIOR DYNAMICS CRM DEVELOPER-UTILITY SYSTEM OPERATOR Work Phone: uh Fireskagit valley hospitalComment on above:Cardiomyopathy, ischemic (Primary Dx); ASHD (arteriosclerotic heart disease); BMI 20.0-20.9, adult; OrthopneaStart: 14-91-0103Prjufcqnf encounterLinda NjorogeFPG CardiologyStart: 07-27-2023 End: 57-60-7349hyhdpazyarBU Marie Hurleyjorge Work Phone: [facility] Work Phone: Start: 07-27-2023 End: 12-82-1013Uxxcods encounter procedureDO Marie Yunbrody Work Phone: [facility]-XRay [facility] Start: 07-16-2023 End: 42-70-2135Ttpiugfbk to same day surgery centerDO Marie Hurleyjorge Work Phone: [facility]-Technical Assistant Work Phone: Start: 07-16-2023 End: 86-49-2393rdigxgvrjhYS Marie Hurleyjorge Work Phone: [facility] Work Phone: Start: 06-23-2023 End: 63-87-3069vvnezdfdmoHAJIX [facility] AmbulatoryStart: 06-22-2023 End: 43-30-3149axmwhmzsnjTnkpynh Howie Other [facility] [employer] Other Start: 24-64-7292Aftoxidin encounterColleen [facility]icsStart: 06-11-2023 End: 47-58-8467migsdbrzwbWS Marie Tejeda Work Phone: [facility] Work Phone: Start: 06-11-2023 End: 42-60-5668Enxzcng encounter procedureDO Marie Yunbrody Work Phone: [facility]-XRay [facility] Start: 06-02-2023 End: 18-87-0419ocayrgokofZVEDNGY PROVIDERFacility:METROHealthStart: 05-26-2023 Telephone encounterColljace [facility] OrthopedicsStart: 05-26-2023 End: 76-97-8861aucjubbhhdXG Marie Tejeda Work Phone: [facility] Work Phone: Start: 05-26-2023 End: 71-92-0694Dtcdcbc encounter procedureDO Marie Tejeda Work Phone: [facility]-XRay [facility] Start: 05-25-2023 End: 63-82-6020tygtdaxkzmWLWDTOSProMedica [facility] AmbulatoryStart: 05-25-2023 End: 45-67-5818Wtvhwk consultation new/estab patient [address] [facility] Work Phone: [place] HospitalComment on above:NSTEMI (non-ST elevated myocardial infarction) (CMS/HCC) (Primary Dx); Abnormal stress test; ASHD (arteriosclerotic heart disease); Essential hypertension; Diabetes mellitus type II, non insulin dependent (CMS/HCC); Closed fracture of right hip, initial encounter (CMS/HCC)Start: 05-21-2023 End: 55-33-4150vyttpczgnuJtcebmh [place] Other [employer] Other Start: 59-43-5756Cqojsk follow up visit related to original pxCotrent [facility] OrthopedicsStart: 05-21-2023 End: 47-59-0250Afdenqz encounter procedureDO Marie Tejeda Work Phone: [facility]-XRay [facility] Start: 05-03-2023 End: 07-45-5852Jlmfwojgge and management of inpatientDO Marie Tejeda Work Phone: [facility] [place] [facility] Work Phone: Start: 04-28-2023 End: 24-82-4151Lxxitxzust and management of inpatientDO Marie Tejeda Work Phone: [facility] Work Phone: Start: 04-23-2023 End: 25-27-2171lnqgmpaxwnQtva ProviderFacility:[facility] Hospitaltart: 04-12-2023 End: 60-48-1148Uebvctlro Result EncounterGeneric External Data ProviderNOMS External Department UnsolicitedStart: 04-12-2023 End: 19-38-9562Eqatmcwec Result EncounterGeneric External Data ProviderNOMS External Department UnsolicitedStart: 01-20-2023 End: 54-61-7119Zmpcrgw encounter procedureAnatoly Anne DIRECTOR OF CUSTOMER ACQUISITION Work Phone: [facility] HealthcareStart: 06-05-2022 End: 38-17-4889coljpgeuktKQ MARIE XAVIHOLZER MEDICAL CENTER – JACKSONFacility:U8Lfskw: 22-97-7854Xadidwsis for other specified special examinationsDR [facility] Start: 05-14-2022 End: 50-57-3139adyjonpzdwNO MARIE [facility] Centercility:F8Maprg: 05-14-2022 End: 52-45-8139Eyesdpchv for other specified special examinationsDR [facility] Hospitalcility:A3Ywrfh: 01-02-2022 End: 77-52-3070Sducpgqedk and management of inpatientDELON CARRIONMorrow County Hospitaltart: 01-02-2022 End: 12-22-8702Nerczgrxde and management of inpatientGray Ross MD Work Phone: stVZ 4B StepdownComment on above:Acute gastric ulcer with perforation (HCC) (Primary Dx); Gastric perforation (HCC)Start: 01-02-2022 End: 45-10-0471rsgccrtcvwOE BENJAMIN BALLFacility:H1 Procedures DateProcedureProcedure DetailPerforming ClinicianStart: 38-05-5054VXHSqqrqzf External Data ProviderStart: 06-25-6788UBDItloagn External Data ProviderStart: 22-75-9598BCT GLUCOSE P FAST SERPL-MCNCGeneric External Data ProviderStart: 84-49-8838QCG PRO BNPGeneric External Data ProviderStart: 47-86-5907GOU CMP (CMP) (FOR REMOTE [facility] USE)Generic External Data ProviderStart: 02-13-2025 GLUTAMIC AC DECARBOXYLASE ABAyana Zavala APRN.UTILITY SYSTEM OPERATOR Work Phone: Start: 28-66-0030IMX HEMOGLOBIN S0QGawxvec External Data ProviderStart: 38-11-2755IYF GLUCOSE BLOODGeneric External Data Provider Start: 86-26-7750Gdmxxqlzrr bloodRobert J Vaschak DO Work Phone: Start: 13-59-7095Bygpidiycy A1c/Hemoglobin.total in Kassidy Zavala APRN.UTILITY SYSTEM OPERATOR Work Phone: Start: 40-25-4255PNA BASIC METABOLIC PANELGeneric External Data ProviderStart: 42-62-4242YLN PRO BNPGeneric External Data Provider Start: 75-48-9822YYD BASIC METABOLIC PANELGeneric External Data ProviderStart: 77-90-8679TJF PRO BNPGeneric External Data ProviderStart: 04-35-1530NQI BASIC METABOLIC PANELGeneric External Data ProviderStart: 09-52-3602Gbwjabruiam Panel (PCR)Marie Vassunithak DO Work Phone: Start: 71-92-9475JN angiography of thoraxRobert Vaschak DO Work Phone: Start: 80-09-4747Pqzpg chest X-rayRobert Vassunithak DO Work Phone: Start: 52-03-9302Xeal bld gluc mntr dev cleared fda spec home useKirsrosy Zavala APRN.UTILITY SYSTEM OPERATOR Work Phone: Start: 05-19-8640OZETTT ON DEMANDCcf ProviderStart: 69-30-4525Hbgtlwufos A1c/Hemoglobin.total in Kassidy Zavala APRN.UTILITY SYSTEM OPERATOR Work Phone: Start: 15-80-0762OnacsifesjnGpvvea Vassunithak DO Work Phone: Start: 29-23-5956Bniyxeg microbial cultureRobert Vassunithak DO Work Phone: Start: 62-52-8147Szygzsnpd microbial cultureRobert Vassunithak DO Work Phone: Start: 73-39-2807Ahxg stain microscopyRobert Vassunithak DO Work Phone: Start: 19-65-0477QVBEUZU CULTUREFredric H Itzkowitz DO Work Phone: Start: 77-61-6616UJYNZFLXO CULTUREFredric H Itzkowitz DO Work Phone: Start: 48-73-9692Fjffazk microbial cultureRobert Jamak DO Work Phone: Start: 44-61-2044Aggygokz identified in Blood by CultureRobert Vassunithak DO Work Phone: start: 21-91-5321BV of abdomen with contrastRobert Ileana DO Work Phone: Start: 78-20-9523Jcmyi chest X-rayRobert Ileana DO Work Phone: Start: 61-54-3118Ozxtwwjmcjqr of cardiac pacemaker Marie Tejeda DO Work Phone: Start: 17-14-2703Wbfdhpsetj glycosylated x7gJjqanl Khoi Tejeda DO Work Phone: Start: 55-77-6822YwaoeqbneqaaxcwepxjakfkuylWZ Marie Tejeda Work Phone: Start: 18-80-9461PG cervical spine without contrastDO Marie Tejeda Work Phone: Start: 19-79-2300EU of head without contrastDO Marie Tejeda Work Phone: Start: 77-27-5208Veqvy chest X-rayDO Marie Tejeda Work Phone: Start: 27-91-0883Zbeor Occult Blood (DORON)DO Marie Tejeda Work Phone: Start: 41-98-1866Xso spinal canal cervical w/o contrast matrlGeneric External Data ProviderStart: 11-11-2023 EsophagogastroduodenoscopyDO Marie Tejeda Work Phone: Start: 00-01-8776T-ray of cervical spineDO Marie Tejeda Work Phone: Start: 15-24-7342J-ray of cervical spineDO Marie Tejeda Work Phone: Start: 78-74-0485PMOYND UP IN CARDIOLOGYBOSTON HOSPITAL FOR WOMEN SHELDONStart: 05-91-9609Gkhgb X-ray of right hipDO Marie Tejeda Work Phone: Start: 12-37-1946WS PCI LADLE HANDLER Ea Add LADDO Marie Tejeda Work Phone: Start: 51-43-6866OF Stent 1st Vessel LAD DESDO Marie Tejeda Work Phone: Start: 69-58-4788WOAWKM UP IN CARDIOLOGYBOSTON HOSPITAL FOR WOMEN SHELDONStart: 14-15-1262Xrnfi X-ray of right femurDO Marie Tejeda Work Phone: Start: 39-25-3074YJJ 12-LEADBOSTON HOSPITAL FOR WOMEN SHELDONStart: 31-55-9507Kpx routine ecg w/least 12 lds w/i&rWilliam S Ryan DO Work Phone: Start: 63-01-2440Fsdef X-ray of right hipDO Marie Tejeda Work Phone: Start: 04-30-2023 End: 85-19-0000Ajgjt X-ray of right hipDO Marie Tejeda Work Phone: Start: 26-95-6249Auyw reduction of fracture with internal fixationDO Marie Tejeda Work Phone: Start: 64-03-8230Huhex chest X-rayDO Marie Tejeda Work Phone: Start: 96-91-7121HN LHC & COR AngioDO Marie Tejeda Work Phone: Start: 85-27-1774Pelw reduction of fracture with internal fixationDO Marie Tejeda Work Phone: Start: 51-39-7256Temzl chest X-rayDO Marie Tejeda Work Phone: Start: 39-75-7841Xlnct X-ray of right femurDO Marie Tejeda Work Phone: Start: 68-57-2351Jwxrv X-ray of right hipDO Marie Tejeda Work Phone: Start: 03-39-3728IC RENAL AND BLADDERGeneric External Data ProviderStart: 86-60-0537Ahwec of magnesiumBreana Johnson MD Work Phone: Start: 00-04-6308ADLRS METABOLIC PANEL W/ REFLEX TO MG FOR LOW KMatthew T Slack DO Work Phone: Start: 20-04-3099ZSAFMVZM PLATELET FRACTIONBreana Johnson MD Work Phone: Start: 74-60-5701Zrqay of phosphorus inorganicMatthew T Slack DO Work Phone: Start: 42-53-4622XQCNG METABOLIC PANEL W/ REFLEX TO MG FOR LOW KMatthew T Slack DO Work Phone: Start: 34-72-1906HRQJMMPM PLATELET FRACTIONBreana Johnson MD Work Phone: Start: 79-74-6686Rnbnehluhu exam upr gi trc single contrast Jose Johnson MD Work Phone: Start: 09-92-6365Mgbrd of magnesiumKings Francis MD Work Phone: Start: 84-04-1956XEWEH METABOLIC PANEL W/ REFLEX TO MG FOR LOW KAarocayla Francis MD Work Phone: Start: 25-14-8291FQLBUGIH PLATELET FRACTIONBreana Johnson MD Work Phone: Start: 79-16-4798Yrbuq of magnesiumAaron N Andrea OGLESBY Work Phone: Start: 19-61-1647GTNTH METABOLIC PANEL W/ REFLEX TO MG FOR LOW KAaron N Andrea OGLESBY Work Phone: Start: 43-23-2844Mgbmw of phosphorus inorganicKings Francis MD Work Phone: Start: 83-38-0005SYZLT METABOLIC PANEL W/ REFLEX TO MG FOR LOW KAaron N Andrea OGLESBY Work Phone: Start: 69-39-1577Qgnvn of magnesiumAaron Cayla Francis MD Work Phone: Start: 81-85-6859APBIT METABOLIC PANEL W/ REFLEX TO MG FOR LOW KAaron N Andrea OGLESBY Work Phone: Start: 98-41-3766Lvfjh of phosphorus inorganicAaron N Andrea OGLESBY Work Phone: Start: 24-20-7094MGDUH METABOLIC PANEL W/ REFLEX TO MG FOR LOW KAaron N Andrea OGLESBY Work Phone: Start: 01-04-2022 End: 42-38-1893Bsrcr of phosphorus inorganicAaron N Andrea OGLESBY Work Phone: Start: 66-30-3408DZGAB METABOLIC PANEL W/ REFLEX TO MG FOR LOW KAaron N Andrea OGLESBY Work Phone: Start: 21-34-4178Ykqbiuy blood reagent stripDelon Carrion DOStart: 01-04-2022 End: 46-45-5435Yxsxi of phosphorus inorganicAaron Cayla Francis MD Work Phone: Start: 29-26-0157WQCDC METABOLIC PANEL W/ REFLEX TO MG FOR LOW KAaron N Andrea OGLESBY Work Phone: Start: 01-03-2022 End: 80-34-8523Gjkdi of phosphorus inorganicAaron Cayla Francis MD Work Phone: Start: 86-73-8179BKMRU METABOLIC PANEL W/ REFLEX TO MG FOR LOW KAaron N Andrea OGLESBY Work Phone: Start: 01-03-2022 End: 33-80-5746Naplmbg blood reagent stripDelon Carrion DOStart: 01-03-2022 Glucose blood reagent stripDelon Carrion DOStart: 01-03-2022 End: 69-04-8717Khfpp of phosphorus Jung Francis MD Work Phone: Start: 37-51-1960LIMDT METABOLIC PANEL W/ REFLEX TO MG FOR LOW Jessicacayla Francis MD Work Phone: Start: 01-03-2022 End: 78-22-1149Zystunu blood reagent stripDelon Carrion DOStart: 01-03-2022 Glucose blood reagent stripDelon Carrion DOStart: 01-03-2022 End: 07-44-1610Afjhb of phosphorus Jung Francis MD Work Phone: Start: 47-36-3047IZCXV METABOLIC PANEL W/ REFLEX TO MG FOR LOW Palmira Francis MD Work Phone: Start: 01-03-2022 End: 00-56-4760Vomii of phosphorus Jung Francis MD Work Phone: start: 38-68-9719ELWCH METABOLIC PANEL W/ REFLEX TO MG FOR LOW KISHANmilena Francis MD Work Phone: Start: 01-03-2022 End: 48-00-7207Wsuunlp blood reagent stripDelon Carrion DOStart: 01-03-2022 End: 04-46-2077Kduxc of phosphorus Jung Francis MD Work Phone: Start: 35-26-6930SEEMM METABOLIC PANEL W/ REFLEX TO MG FOR LOW KISHANmilena Francis MD Work Phone: Start: 01-03-2022 End: 10-80-3633Wlvlptv blood reagent stripDelon Carrion DOStart: 01-02-2022 Glucose blood reagent stripDelon Carrion DOStart: 01-02-2022 End: 76-35-0459Lqvrwss blood reagent stripJohn J Leskovan DOStart: 01-02-2022 Radiologic exam abdomen 1 viewTricia Ange DOStart: 04-02-1099Ntygbks bacterial quanttative colony count urineTristan Bueno DO Work Phone: Start: 01-02-2022 End: 24-67-6668Ticpspu blood reagent stripDelon Carrion DOStart: 01-02-2022 End: 22-11-8586LBIFV RESECTION HEMICOLECTOMY LAPAROSCOPIC ROBOTICTristan Bueno DO Work Phone: Start: 01-02-2022 End: 93-82-4347KEH DIAGNOSTIC ONLYTristan Bueno DO Work Phone: Start: 28-61-1973Ziqvs metabolic panel calcium total Breana Johnson MD Work Phone: Start: 93-92-9355Ahydszr function panelBreana Johnson MD Work Phone: Start: 58-72-3614ZBSJFXA, SEPSISJumarianne Johnson MD Work Phone: Start: 62-30-4437Sgaykbi blood reagent stripGray Ross MD Work Phone: Start: 12-30-2019H/O splenectomyH/O splenectomyYuerong Cally DIRECTOR OF CUSTOMER ACQUISITION Work Phone: AppendectomyTristan MELCHOR Cardiac pacemaker, device (physical object)Tristan MELCHOR Extraction of cataractTristan MELCHOR H/O splenectomyH/O splenectomyRobert J Vaschak DO Work Phone: H/O splenectomyH/O splenectomyRobert J Vaschak DO Work Phone: H/O splenectomyH/O splenectomyRobert J Vaschak DO Work Phone: H/O splenectomyWalkerory JULIO H/O splenectomyH/O splenectomyAmy Warchol DIRECTOR OF CUSTOMER ACQUISITION Work Phone: PancreatectomyTristan MELCHOR Placement of stent in cardiac conduitrTistan MELCHOR TonsillectomyTristan MELCHOR Plan of Treatment DateCare ActivityDetailAuthorStart: 87-22-4451Hbasm microalbumin profile DTaP,Tdap,Td Vaccine (4 - Td or Tdap)[facility]art: 03-18-2028 DTaP/Tdap/Td vaccine (3 - Td or Tdap)DTaP/Tdap/Td vaccine (3 - Td or Tdap)[facility]ITALStart: 83-65-2902VVnK/Tdap/Td Vaccines (3 - Td or Tdap) DTaP/Tdap/Td Vaccines (3 - Td or Tdap)[facility] CenterStart: 99-85-9099Aigcxvbf ScreeningDiabetes ScreeningKettering Health – Soin Medical Centertart: 09-25-2025 Hepatitis B screeningUrine Albumin:Creatinine RatioKettering Health – Soin Medical Centertart: 52-56-8423Qsjcbcosf B surface antibody levelLDL CholesterolHolzer Hospital Start: 27-90-0639Rzacb screening for proteinDiabetes: Urine Protein Screening [facility] HealthcareStart: 77-98-8252Ghtvbowkki A1c measurementDiabetes: Hemoglobin Q7LLICL HealthcareStart: 06-21-2025 End: 96-22-5197Caixwlq encounter /11/2025 1:00 PM EST Office Visit [facility] [address] [place] [address] Marga Robledo NP [address] [place] [address] [facility] MedicineStart: 10-07-2025Medicare Annual Wellness (AWV)Medicare Annual Wellness (AWV)[facility] HealthcareStart: 04-09-2025 End: 53-74-5345Kklatil encounter cjaizjmep61/29/2025 2:00 PM EDT Office Visit Endocrinology [address] [place], [place] [id number] Ayana Zavala APRN.UTILITY SYSTEM OPERATOR [address] 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, with long-term current use of insulin ([facility]) Expected: 02/06/2025, Expires: 05/08/2025[facility] HospitalComment on above:Expected: 02/06/2025, Expires: 05/08/2025Start: 02-06-2025 End: 46-37-0705Vqudzzenoc A1c in BloodHEMOGLOBIN A1C Lab Routine 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, with long-term current use of insulin (HCC) Expected: 02/06/2025, Expires: 05/08/2025[facility] Work Phone: Comment on above:Expected: 02/06/2025, Expires: 05/08/2025Start: 02-05-2025 End: 05-07-2025 peptide [Mass/volume] in Serum or PlasmaC-PEPTIDE BLD Lab Routine 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, with long-term current use of insulin (HCC) Expected: 02/05/2025, Expires: 05/07/2025 [facility] HospitalComment on above:Expected: 02/05/2025, Expires: 05/07/2025Start: 02-05-2025 End: 29-27-6912Xnrgzxg glucose [Mass/volume] in Serum or PlasmaGLUCOSE, FASTING Lab Routine 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 [place] [address] 2 month follow up DMEndocrinologyComment on above:2 month follow up DMStart: 01-16-2025 End: 07-74-7332Orsaxgaylujm / ancillary services jzovqujbbv31/08/2025 11:30 AM EDT Ancillary Procedure [facility] [address] [place] [address] IM[address]Start: 01-03-2025 End: 45-07-4695Vavgetijqy [Mass/volume] in Serum or PlasmaCreatinine, Serum Lab Routine Pleurisy Expected: 01/03/2025 (Approximate), Expires: 01/03/2026[facility] HealthcareComment on above:Expected: 01/03/2025 (Approximate), Expires: 01/03/2026Start: 01-03-2025 End: 26-68-3666JIV Chest vessels WO and W contrast IVCT angiogram chest Imaging Routine Pleurisy Expected: 01/03/2025 (Approximate), Expires: 04/05/2025[facility] Work Phone: Comment on above:Expected: 01/03/2025 (Approximate), Expires: 04/05/2025Start: 77-35-6537Ybtgonnc screeningDiabetes: Retinopathy Screening[facility] HealthcareStart: 85-06-7840Hazhq-19 Vaccine ( season) Covid-19 Vaccine ( season)[facility] Centertart: 10-26-2024 End: 82-20-4583Maspmou encounter wvyzmfuee95/17/2025 12:15 PM EDT Office Visit Endocrinology [address] [facility] [place] [address] Ayana Zavala, SENIOR DYNAMICS CRM DEVELOPER.UTILITY SYSTEM OPERATOR [address] [place] [address] Return in about 4 weeks (around 10/23/2024). EndocrinologyComment on above:Return in about 4 weeks (around 10/23/2024).Start: 53-77-4392Twpwpjmiiu A1c measurementPike County Memorial HospitalStart: 09-25-2024 End: 38-79-3964Pujliar encounter kguamomkw31/17/2025 2:30 PM EDT Office Visit Endocrinology [address] [facility] [place] [address] Ayana Zavala, SENIOR DYNAMICS CRM DEVELOPER.UTILITY SYSTEM OPERATOR [address] [facility] [place] [address] Return in about 6 weeks (around 08/17/2024). EndocrinologyComment on above:Return in about 6 weeks (around 08/17/2024).Start: 09-25-2024 End: 52-62-9949Kmzrcpwfqojfv metabolic 2000 panel - Serum or PlasmaSelect [facility]ty [facility] Work Phone: Comment on above:Expected: 09/25/2024, Expires: 12/25/2024Start: 09-25-2024 End: 05-69-9237EJNLT PANEL, NONFASTINGHolzer HospitalComment on above:Expected: 09/25/2024, Expires: 12/25/2024Start: 09-25-2024 End: 41-59-9125Inobvufmrzll/Creatinine [Mass Ratio] in UrineHolzer Hospital Comment on above:Expected: 09/25/2024, Expires: 12/25/2024Start: 14-44-1333Pgewr screening for proteinDiabetes: Urine Protein ScreeningPike County Memorial HospitalStart: 09-04-2024 End: 11-25-7627Pzudqvi evaluation of patient and jczrcd9709/04/2024 1:00 PM EST Nurse Visit [facility] [address] [place] [address] Gaye Mata, KARIN Omnipod DASH to Omnipod 5 upgrade with Dexcom G7 trainingDiWise Health System East CampusCComment on above:Omnipod DASH to Omnipod 5 upgrade with Dexcom G7 trainingStart: 08-29-2024 End: 17-16-8790Bemvsmp encounter zcsghdovt81/18/2025 1:30 PM EST Office Visit Endocrinology [address] [place] [address] Ayana Zavala, AMADA.UTILITY SYSTEM OPERATOR [address] [facility] [place] [address] Return in about 6 weeks (around 08/17/2024). EndocrinologyComment on above:Return in about 6 weeks (around 08/17/2024).Start: 08-18-2024 End: 74-35-4822Bmogfgr encounter /07/2025 8:30 AM EST Office Visit Endocrinology [address] [place] [address] Ayana Zavala, SENIOR DYNAMICS CRM DEVELOPER.UTILITY SYSTEM OPERATOR [address] [facility] [place] [address] Return in about 6 weeks (around 08/17/2024). EndocrinologyComment on above:Return in about 6 weeks (around 08/17/2024).Start: 08-02-2024 End: 83-64-3164Gmnaxlw encounter /22/2025 10:00 AM EST Office Visit [facility] [address] [place] [phone] Marie Tejeda DO [address] [place] [address] [facility] IMStart: 07-25-2024 End: 32-32-2777Oxrcobn evaluation of patient and iyfzww3407/25/2024 1:00 PM EST Nurse Visit [facility] [address] [place] [address] Gaye Mata, RN Omnipod 5 upgrade from BeCouply with Dexcom G6 CGM. Needs carb counting. Coming from [place], [place] with Diabetic [facility] FHCComment on above:Omnipod 5 upgrade from BeCouply with Dexcom G6 CGM. Needs carb counting. Coming from [place] with Start: 07-20-2024 End: 70-53-2123Uwkmr metabolic 1998 panel - Serum or PlasmaBasic metabolic panel Lab Routine Chronic systolic CHF (congestive heart failure), NYHA class 2 ([facility]) Expected: 07/20/2024 (Approximate), Expires: 07/24/2024[facility] Work Phone: Comment on above:Expected: 07/20/2024 (Approximate), Expires: 07/24/2024Start: 30-07-5553Zbcgmvyqdq A1c measurementDiabetes: Hemoglobin Z7IZVPTPike County Memorial HospitalStart: 07-17-2024 End: 62-51-7876SgfeacaksMadison Healthtart: 72-13-2973Nilkmjkw to cardiologistMadison Healthtart: 10-65-7158Igawshswgzp pathogens DNA and RNA panel - Nasopharynx by ANASTASIA with non-probe detection [facility]: 30-34-0703Izlsecws therapy procedure [facility]: 35-91-2962Tnmmwyrt to occupational therapistMadison Healthtart: 56-78-5743FoaylqticMadison Healthtart: 91-92-7448Tpjtajvq admissionMadison Healthtart: 07-13-2024 End: 16-41-6802Hjhnnos encounter xyhoajfzy06/02/2025 10:45 AM EST Office Visit [facility] [address] [facility] [address] [place] [phone] Stephanie Sheridan DO [address] [facility] [address] [place] [address] NOMKasey NAIKtart: 29-69-4366Dhylrer Directive DiscussionAdvance Directive DiscussionKettering Health – Soin Medical Centertart: 07-03-2024 End: 59-37-8889Gjwkkkj encounter legmqcree34/23/2024 9:00 AM EST Office Visit [facility] [address] [place] [address] Beto Russo MD [address] [place] [address] ALDRICHtart: 26-03-1443GlfgdfmynAdena Pike Medical Center Start: 08-96-1095Fvpsponp to general surgeonAdena Pike Medical Center Start: 45-19-7381Gcvvhfnu admissionMadison Healthtart: 06-19-2024 End: 29-44-8625Ywklgvn encounter zskcmofep66/09/2024 3:00 PM EST Office Visit [facility] [address] [place] [phone] Marie Tejeda DO [address] [place] [address] [facility] IMStart: 06-18-2024 End: 85-48-5641NkfswqgukMadison Healthtart: 56-32-2251EnouunwjcMadison Healthtart: 54-03-3782Lctirung admissionMadison Healthtart: 31-94-7868Ppaulfua to infectious diseases physician [facility]: 01-75-2860Xxfrzhqj of Abdomen Subcutaneous Tissue and Fascia, Open ApproachDrainage of Abdomen Subcutaneous Tissue and Fascia, Open ApproachMadison Healthtart: 80-09-2473TmwmoioqvMadison Healthtart: 27-34-2298Upjukzst admission [facility]: 47-82-6390ZdluxzefyMadison Healthtart: 90-50-4505AsimaixutLima City Hospital CenterStart: 05-24-2024 Insertion of Defibrillator Generator into Chest Subcutaneous Tissue and Fascia, Open ApproachInsertion of Defibrillator Generator into Chest Subcutaneous Tissue and Fascia, Open ApproachMadison Healthtart: 05-24-2024 Insertion of Defibrillator Lead into Right Atrium, Percutaneous Approach Insertion of Defibrillator Lead into Right Atrium, Percutaneous Approach [facility]: 57-90-1735Peczfowrr of Defibrillator Lead into Right Ventricle, Percutaneous ApproachInsertion of Defibrillator Lead into Right Ventricle, Percutaneous ApproachAdena Pike Medical Center Start: 88-07-0484JaqowolstMadison Healthtart: 71-20-7981CaebzdzzyMadison Healthtart: 14-77-2615Gvidehie to gastroenterologistMadison Healthtart: 80-32-8008Jolxorqh admissionMadison Healthtart: 77-00-7158KH cervical spine without contrastCT cervical spine wo [facility]ontart: 71-06-1032UK Cervical spine WO contrastMadison Healthtart: 95-59-9789VJ of head without contrastCT head/brain wo [facility] Cantontart: 79-88-0422VR Unspecified body region WO [facility] Ohiotart: 17-40-8943Cgunm chest X-rayXR chest 1V portableAdena Pike Medical Center Start: 47-66-7986VI Chest Single viewMadison Healthtart: 27-79-8170Nablnff Bleeding in Gastrointestinal Tract, Via Natural or Artificial Opening EndoscopicControl Bleeding in Gastrointestinal Tract, Via Natural or Artificial Opening EndoscopicLima City Hospital CenterStart: 11-11-2023 [facility] CenterStart: 98-77-5823ZrqssihkrLima City Hospital CenterStart: 82-67-2416Ckjjwzve to rehabilitation physicianMadison Healthtart: 70-93-7555Mhfpcwaq admissionMadison Healthtart: 00-45-2147TqmawcpwgcfbUioooncjwMadison Healthtart: 43-42-7561Jhmvxyew to gastroenterWVUMedicine Harrison Community Hospitaltart: 69-33-7461Hluxicy Bleeding in Gastrointestinal Tract, Via Natural or Artificial Opening EndoscopicControl Bleeding in Gastrointestinal Tract, Via Natural or Artificial Opening EndoscopicMadison Healthtart: 08-31-2023 Excision of Esophagus, Via Natural or Artificial Opening Endoscopic, Diagnostic Excision of Esophagus, Via Natural or Artificial Opening Endoscopic, Diagnostic [facility]: 03-07-0828Hrntuqdv of Stomach, Pylorus, Via Natural or Artificial Opening Endoscopic, DiagnosticExcision of Stomach, Pylorus, Via Natural or Artificial Opening Endoscopic, DiagnosticMadison Healthtart: 08-16-2023 End: 88-71-0781Dqrfp metabolic 2000 panel - Serum or PlasmaBasic Metabolic Panel Lab Routine Cardiomyopathy, ischemic Expected: 08/16/2023 (Approximate), Expir es: 08/16/2024[facility] Work Phone: Comment on above:Expected: 08/16/2023 (Approximate), Expires: 08/16/2024Start: 08-16-2023 End: 10-60-4241Bomjnlcmbrz peptide B [Mass/volume] in BloodB-Type Natriuretic Peptide Lab Routine Cardiomyopathy, ischemic Orthopnea Expected: 08/16/2023 (Approximate), Expires: 08/16/2024[facility] Service Area Work Phone: Comment on above:Expected: 08/16/2023 (Approximate), Expires: 08/16/2024Start: 07-16-2023 End: 75-44-6048EwqsttfogMadison Healthtart: 44-76-0033GKWWS-19 Vaccine (3 - Moderna series)COVID-19 Vaccine (3 - Moderna series)[facility] CenterStart: 44-11-9385Gakxkfe Directive DiscussionAdvance Directive DiscussionKettering Health – Soin Medical Centertart: 06-23-2023 End: 62-84-0540Dulvyqp encounter opjqctlzq85/13/2023 2:00 PM EST Office Visit [facility] [address] [facility] [address] [place] [address] Sammy Berman, SENIOR DYNAMICS CRM DEVELOPER-UTILITY SYSTEM OPERATOR [address] [facility] [address] [place] [address] [facility] HospitalStart: 27-37-0344Abhlc screening for protein Diabetes: Urine Protein ScreeningPike County Memorial HospitalStart: 00-72-2423CzxtigqitLima City Hospital CenterStart: 55-30-2991Utqjvvwvoidrkp of prophylactic treatment [facility] CenterStart: 67-10-9775Eemtxuvd admissionLima City Hospital CenterStart: 01-81-1857Utfvqtfw to clinical allergistLima City Hospital CenterStart: 50-40-3267ChxuokvlyLima City Hospital CenterStart: 57-15-1105Cjplxxbe to rehabilitation physicianAdena Pike Medical Center Start: 51-46-1771Iceri chemistryLima City Hospital CenterStart: 76-22-4188XdzkgqaxwLima City Hospital CenterStart: 83-83-0401Mmsiw chemistry [facility] CenterStart: 90-19-3534VsfhjfzdrLima City Hospital CenterStart: 25-58-1174Fbetutto to Social ServicesMadison Healthtart: 58-40-9885Occxm chemistryLima City Hospital CenterStart: 04-30-2023 End: 44-28-3141OycifzkgiLima City Hospital CenterStart: 10-19-2023Medicare Annual Wellness (AWV)Medicare Annual Wellness (AWV)[facility] HealthcareStart: 04-29-2023 Blood chemistryLima City Hospital CenterStart: 54-74-1936Dslbx panel [facility] CenterStart: 76-60-0227QiingjrhcMadison Healthtart: 47-29-7871TqmcbfqhnLima City Hospital CenterStart: 04-28-2023 Hospital admissionLima City Hospital CenterStart: 15-92-2722BhlsaetxqLima City Hospital CenterStart: 54-35-9279Eownoppb admissionLima City Hospital CenterStart: 19-61-8489VyqgvvuyhiepSarnrrsvrAdena Pike Medical Center Start: 40-38-2111Egujjgyh to cardiologistLima City Hospital CenterStart: 04-28-2023 End: 28-72-2534LttjaldaqLima City Hospital CenterStart: 97-72-5000Vamlwxjtnma of Left Heart using Low Osmolar ContrastFluoroscopy of Left Heart using Low Osmolar ContrastMadison Healthtart: 13-11-9499Mofkzljpetu of Multiple Coronary Arteries using Low Osmolar ContrastFluoroscopy of Multiple Coronary Arteries using Low Osmolar ContrastAdena Pike Medical Center Start: 95-08-1260Ypxocjowt of Intramedullary Internal Fixation Device into Right Upper Femur, Percutaneous ApproachInsertion of Intramedullary Internal Fixation Device into Right Upper Femur, Percutaneous ApproachMadison Healthtart: 39-49-6836Sblgrbhrqkc of Cardiac Sampling and Pressure, Left Heart, Percutaneous ApproachMeasurement of Cardiac Sampling and Pressure, Left Heart, Percutaneous ApproachMadison Healthtart: 04-04-2022 Hemoglobin A1c measurementDiabetes: Hemoglobin T6PNrngxqosxnRegional Medical Center: 61-62-7612Jyufzhqu vaccine (2 of 2)Shingles vaccine (2 of 2)[facility]: 27-15-4494ZRCRV-19 Vaccine (3 - Booster for Moderna series)COVID-19 Vaccine (3 - Booster for Moderna series)[facility] Start: 97-53-1530Ygkdphwrrvnfk B Vaccine (3 of 4 - Increased Risk Bexsero 2-dose series)Meningococcal B Vaccine (3 of 4 - Increased Risk Bexsero 2-dose series) [facility]: 11-77-0513Kwptuomrwzqid B Vaccine (3 of 4 - Increased Risk Bexsero 3-dose series)Meningococcal B Vaccine (3 of 4 - Increased Risk Bexsero 3-dose series)[facility] HospitalStart: 09-15-2018 DTaP/Tdap/Td Vaccines (3 - Td or Tdap)DTaP/Tdap/Td Vaccines (3 - Td or Tdap)[facility] HospitalStart: 09-01-2002Medicare Annual Wellness VisitMedicare Annual Wellness VisitKettering Health – Soin Medical Centertart: 02-07-1145Beecp screening for protein Diabetes: Urine Protein ScreeningRegional Medical Center: 69-59-7363Ziubljg ScreeningAnxiety ScreeningKettering Health – Soin Medical Centertart: 1955 Depression ScreeningDepression ScreeningOhio Valley Hospitalrt: 1955 Hepatitis B surface antibody levelLDL CholesterolKettering Health – Soin Medical Centertart: 96-92-0035Ivvedlmocc ScreenDepression ScreenBON [facility] Hospitalart: 55-57-3983Ossqqsdo foot examinationRegional Medical Center: 38-18-2904Uxdilihu screeningRegional Medical Center: 1945 Hepatitis B screeningUrine Albumin:Creatinine RatioWVUMedicine Barnesville Hospital: 67-53-3007Fkwmyzhsqtdsh B Vaccine (1 of 4 - Increased Risk)Meningococcal B Vaccine (1 of 4 - Increased Risk)[facility]: 28-08-5428Ranrfbyofitym Vaccine (1 - Risk 2-dose series)Meningococcal Vaccine (1 - Risk 2-dose series)[facility]: 23-58-4709URS Vaccines (1 of 1 - Risk 1-dose series)HIB Vaccines (1 of 1 - Risk 1-dose series) [facility]: 21-00-1185Oxcklm Wellness Visit (AWV) Annual Wellness Visit (AWV)[facility]: 53-27-7636Aumej panel Lipid PanelUnMetroHealth [facility]: 1937Medicare Annual Wellness VisitMedicare Annual Wellness Visit (AWV)[facility]: 98-64-6794Bqjmafvte for osteoporosisBone Density ScanUnWilson HealthAEROBIC CULTUREAEROBIC CULTURE Lab Routine 06/20/2024 10:18 AM [facility] Work Phone: ANAEROBIC CULTUREANAEROBIC CULTURE Lab Routine 06/20/2024 10:18 AM [facility] Panel w/ Reflex to MGBasic Metabolic Panel w/ Reflex to MG Lab Routine Daily until discontinued starting 01/06/2022, 2 completedBON [facility] [employer] Phone: comment on above:Daily until discontinued starting 01/06/2022, 2 completedCBC W Auto Differential panel - BloodCBC with Auto Differential Lab Routine Daily until discontinued starting 01/03/2022, 5 completedBON [facility] [employer] Phone: comment on above:Daily until discontinued starting 01/03/2022, 5 completedComprehensive metabolic 2000 panel - Serum or Plasma [facility] Medical CenterGlucose [Mass/volume] in Serum or PlasmaPOCT Glucose Point of Care Testing STAT As Needed until discontinued starting 01/02/2022ON [facility] [employer] Phone: comment on above:As Needed until discontinued starting 01/02/2022Glucose [Mass/volume] in Serum or PlasmaPOCT glucose Point of Care Testing Routine Now Then Every 4hr until discontinued starting 01/03/2022 [employer] Phone: comment on above:Now Then Every 4hr until discontinued starting 01/03/2022Glucose [Mass/volume] in Serum or PlasmaGLUCOSE, BLOOD (POC) Lab Routine 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, with long-term current use of insulin (HCC) Ordered: 4C[facility] Work Phone: Comment on above:Ordered: 07/06/2024Glucose measurement estimated from glycated hemoglobinAdena Pike Medical Center Helicobacter pylori Ag [Presence] in Stool by ImmunoassayAdena Pike Medical CenterOxygen therapy [Minimum Data Set]Initiate Oxygen Therapy Protocol Respiratory Care Routine As Needed until discontinued starting 01/02/2022 [employer] Phone: comment on above:As Needed until discontinued starting 01/02/2022atient [facility] Work Phone: Patient referralLima City Hospital Ctr Work Phone: Phosphate [Mass/volume] in Serum or PlasmaPhosphorus Lab Routine Daily until discontinued starting 01/06/2022, 2 completedBON [employer] Work Phone: comudgr on above:Daily until discontinued starting 01/06/2022, 2 completedSpirometry panelIncentive spirometry Respiratory Care Routine Every 2hr while awake until discontinued starting 01/03/2022 [employer] Phone: commnlj on above:Every 2hr while awake until discontinued starting 01/03/2022US Heart TransthoracicAdena Pike Medical CenterUS Heart TransthoracicAdena Pike Medical CenterXR Cervical spine 3 ViewsMercyhealth Mercy Hospital Immunizations Immunization DateImmunizationNotesCare BheplncdZchxftoh00-02-3059rwdcylwkc, high dose seasonal, preservative-freeGeneric ProviderPike County Memorial HospitalVeuebxzort33-21-4639 Seasonal trivalent influenza vaccine, adjuvanted, preservative freeYuerong Cally DIRECTOR OF CUSTOMER ACQUISITION Work Phone: [facility] HospitalPjdqcbidsi99-57-2164pmhqsjlnz virus vaccine, unspecified formulationMarie Ileana DO Work Phone: [facility] HospitalQwagvdukqw73-22-5218Wlzcowjjd, Seasonal, Quadrivalent, AdjuvantedYuerong Cally DIRECTOR OF CUSTOMER ACQUISITION Work Phone: [facility] HospitalIrfvytprhh21-39-5173DAKTB-10 (PFIZER) 12Y and olderDO Marie Tejeda Work Phone: [facility]11-07-2023Moderna SARS-CoV-2 VaccinationYuerong Cally DIRECTOR OF CUSTOMER ACQUISITION Work Phone: [facility] HospitalNzepupuqfi31-09-9270MGU, recombinant, protein subunit RSVpreF, adjuvant reconstitu, 120mcg/0.5mL, PF (Arexvy)Yuerong Cally DIRECTOR OF CUSTOMER ACQUISITION Work Phone: [facility] HospitalCbawhtknyu66-21-8971sqzufg vaccine recombinant Yuerong Cally DIRECTOR OF CUSTOMER ACQUISITION Work Phone: [facility] HospitalLxcexntpdq81-52-7120NYDXH-29 mRNA Bivalent Booster (Pfizer)DO Marie Tejeda Work Phone: [facility]11-15-2022Moderna Bivalent Booster VaccinationYuerong Cally DIRECTOR OF CUSTOMER ACQUISITION Work Phone: [facility] HospitalRwavgtpios26-03-4608dcjnjlbvh, high dose seasonal, preservative-freeYuerong Cally DIRECTOR OF CUSTOMER ACQUISITION Work Phone: [facility] HospitalWvebtdarmd10-65-7877hfurqh vaccine, liveYuerong Cally DIRECTOR OF CUSTOMER ACQUISITION Work Phone: [facility] HospitalSlbabmbwko63-22-8142eadqga vaccine recombinant Yuerong Cally DIRECTOR OF CUSTOMER ACQUISITION Work Phone: [facility] HospitalXnnuzplhua10-30-8403njdkswszn, high dose seasonal, preservative-freeYuerong Cally DIRECTOR OF CUSTOMER ACQUISITION Work Phone: [facility] HospitalVcxewmtwry95-60-5438Qhaztaq SARS-CoV-2 VaccinationYuerong Cally DIRECTOR OF CUSTOMER ACQUISITION Work Phone: [facility] HospitalZrgssynksy61-13-8459Inaczjv SARS-CoV-2 VaccinationYuerong Cally DIRECTOR OF CUSTOMER ACQUISITION Work Phone: [facility] HospitalLqhcmffgok09-14-0885Lgeqhbep trivalent influenza vaccine, adjuvanted, preservative freeYuerong Cally DIRECTOR OF CUSTOMER ACQUISITION Work Phone: [facility] HospitalFkfgjpsmhg13-22-8230rbfhenwrofnh conjugate vaccine, 13 valentYuerong Cally DIRECTOR OF CUSTOMER ACQUISITION Work Phone: [facility] HospitalRtjbgiecwl09-70-1795pwxatfnoyvozs B vaccine, recombinant, OMV, adjuvantedRobert Vaswilson memorial hospitalk DO Work Phone: noResearch Belton HospitalPhuzauwvby11-64-9667jfciymofzgmye polysaccharide (groups A, C, Y and W-135) diphtheria toxoid conjugate vaccine (MCV4P)[facility] DO Work Phone: [facility] HospitalMromucvfgf65-47-6845mbcyuwpdjcgi polysaccharide vaccine, 23 valentRobert Vaswilson memorial hospitalk DO Work Phone: [facility] HospitalEasujpgoyk19-49-1580Qvguuuad trivalent influenza vaccine, adjuvanted, preservative freeYuerong Cally DIRECTOR OF CUSTOMER ACQUISITION Work Phone: [facility] HospitalNuxewkrqvj58-10-7655yrytjdnaudq influenzae type b vaccine, PRP-OMP conjugateRobert Vaswilson memorial hospitalk DO Work Phone: [facility] HospitalOqoyokdqfa03-08-1623tbgnnoycnexkn B vaccine, recombinant, OMV, adjuvantedRobert Vaschak DO Work Phone: [facility] HospitalBqkvuexeai79-03-3728hpshnvbwpcas conjugate vaccine, 13 valentRobert Vaschak DO Work Phone: [facility] HospitalCbhzisiibd87-21-6117Cmcjnlno trivalent influenza vaccine, adjuvanted, preservative freeYuerong Cally DIRECTOR OF CUSTOMER ACQUISITION Work Phone: [place] [address]Kgdqzbmqie27-88-9235ihtygpb and diphtheria toxoids, adsorbed, preservative free, for adult use (5 Lf of tetanus toxoid and 2 Lf of diphtheria toxoid)Anatoly Anne DIRECTOR OF CUSTOMER ACQUISITION Work Phone: [facility] HospitalHnoqaozelw90-69-9052bxygmlhub, high dose seasonal, preservative-freeAnatoly Cally DIRECTOR OF CUSTOMER ACQUISITION Work Phone: [facility] HospitalIlcpavcgew97-23-8871nffudxkeidoe polysaccharide vaccine, 23 valentYleonarda Cally DIRECTOR OF CUSTOMER ACQUISITION Work Phone: [facility] HospitalRfvrnkfjyj45-11-2768kqbpxhs toxoid, reduced diphtheria toxoid, and acellular pertussis vaccine, adsorbedAnatoly Swivl DIRECTOR OF CUSTOMER ACQUISITION Work Phone: [facility] Payers DatePayer CategoryMdyerSci-[facility] [id number]-jzq [id number] Health Insurance1.2.840.349728.1.13.693.2.7.9.862410.510303. Medicare1.2.840.662128.1.13.647.2.7.3.2329[id number] 1.2.840.529145.1.13.239.2.7.3.46096[id number] 1.2.840.908229.1.13.239.2.7.3.993118.03946-82-1517Ubketzf631372708 2.16.840.1.776514.3.579.2.43685-55-9216Btcykfj5008630 2.16.840.1.584093.3.579.2.54490-38-3396Tktziqi3678345 2.16.840.1.106529.3.579.2.84527-37-4043Reatprj9499948 2.16.840.1.914419.3.579.2.96078-28-0997Eirbrps230434795 2.16.840.1.574293.3.579.2.82430-97-1645Dnkefms45986911 2.16.840.1.954326.3.579.2.163425-70-3166Zwazfvq97610720 2.16.840.1.179334.3.579.2.552757-27-3256Dminpzl20891993 2.16.840.1.929557.3.579.2.114758-87-3387Kefzkgg63117564 2.16.840.1.982593.3.579.2.17922-24-7750Oliyzyj15189964 2.16.840.1.067422.3.579.2.01346-08-7861Fpojqwi45651373 2.16.840.1.039456.3.579.2.30412-09-4311Vpgycla33220824 2.16.840.1.013818.3.579.2.937683-37-5158Bubejve49487697 2.16.840.1.434119.3.579.2.514697-04-9273Ywxtmkd63768566 2.16.840.1.234016.3.579.2.790342-02-6799Jtagxmf77577759 2.16.840.1.258446.3.579.2.734766-27-2720Vhnffoe65646025 2.16.840.1.613784.3.579.2.562579-76-8216Kinmgfh50609321 2.16.840.1.947434.3.579.2.904187-61-8859Qnplgqb9652533 2.840.1.373251.3.579.2.553747-33-0612Hmwilea3319588 2.0.1.425681.3.579.2.635579-93-6719Hkcqnyi7594192 2.840.1.252395.3.579.2.697070-89-5218Wvpbvzs9606920 2.840.1.705916.3.579.2.421629-08-8553Aumltrw2129352 2.0.1.968392.3.579.2.517630-91-5703Vihrvzp9985334 2.0.1.158383.3.579.2.656148-65-7045Edzcpwx73021474 2.0.1.390280.3.579.2.81298-31-8014Vcblrdv49398533 2.0.1.145508.3.579.2.93887-49-2856Tpujcrg89819987 2.0.1.280785.3.579.2.74753-26-3722Mtsoncu15482703 2.0.1.725333.3.579.2.75338-51-6861Evqwzer33623156 2.0.1.949736.3.579.2.33880-80-1354Ylcbfug29842295 2.0.1.918825.3.579.2.349YnosebkZZ4945812Kkgxsuq44789650 2.840.1.071745.3.579.2.667Mssaguw87895652 2.840.1.524251.3.579.2.531 Bsiwykk87151759 2.840.1.891562.3.579.2.373Qbqwvkr03357845 2.16.840.1.271387.3.579.2.087Oldppnp59959810 2.16.840.1.448592.3.579.2.531 Hcvwfqo96837160 2.16.840.1.215037.3.579.2.256Jjkgeym43992053 2.16.840.1.523934.3.579.2.513Ywdunpn85228300 2.16.840.1.531425.3.579.2.531 Vnvquow34989241 2.16.840.1.886451.3.579.2.091Mjmneow39606402 2.16.840.1.395263.3.579.2.275Okhcqtr08984546 2.16.840.1.811907.3.579.2.531 Social History DateTypeDetailFacilityStart: 01-04-2022 End: 35-29-9792Huzojml smoking status NHISEx-smokerTVAX [employer]ical Start: 07-12-1947 End: 51-79-9844Vjqmejr of tobacco useCigarette SmokerBANNER GOLDFIELD [facility] [employer] Phone: start: 01-04-2022 End: 53-57-1414Hismmzv use and exposureSmokeless tobacco non-userBANNER GOLDFIELD MEDICAL CENTER [employer] Phone: start: 92-22-7147Ddprquk intakeEx-drinker (finding)[facility] [employer] Phone: start: 76-35-0990Keu Assigned At BirthNot on fileBANNER GOLDFIELD MEDICAL CENTER [employer] Phone: start: 12-24-2021 End: 74-28-1700Ruvktwqr to SARS-CoV-2 (event)Not sureBANNER GOLDFIELD MEDICAL CENTER [employer] Start: 04-28-2023 End: 86-92-9479Uskibyz smoking status NHISCurrent some day smokerMadison Healthtart: 90-83-4216Vpr [facility]: 05-25-2023 End: 25-01-3453Giv Assigned At [facility] [employer] Other Start: 05-25-2023 End: 40-65-4839Yaczhbv intakeCurrent drinker of alcohol (finding)[facility] Work Phone: Start: 05-25-2023 End: 87-53-5225[place] intakeUnWilson Health Work Phone: Start: 07-12-1947 End: 10-68-1891Vnogtid smoking status NHISSmoker (finding)[facility] CenterHow often to you have a drink containing alcohol?2-4 times a month [facility] HealthcareHow many standard drinks containing alcohol do you have on a typical day?1 or 2NOM[facility] HealthcareHow often do you have 6 or more drinks on 1 occasion?NeverNOND HealthcareStart: 27-32-9905Qavbbpd CommentHas a history of cessation from smokin02/09/2018NOND HealthcareStart: 11-22-2010 End: 19-80-3034UhnVetm (finding)[facility]htart: 03-30-2018 End: 56-95-7559Otktwato Score (1-100), lower number is lower yczd83Aecxsiybk ClinicStart: 55-83-2068Jnoxgdh Commentsocial useKettering Health – Soin Medical Centertart: 07-12-1947 End: 55-61-0543Bwpfwnm smoking status NHISSmokes tobacco dailyNOND Healthcare Tobacco smoking statusExecutive Urology of [facility] Start: 03-95-6485Jbyabrr Commentcaffeine-1 cup per day [facility] Medical Equipment Procedure CodeEquipment CodeEquipment Original TextEquipment IdentifierDates ORIF, hipOrthopaedic bone screw, non-bioabsorbable, non-sterile ()[id number] FDAStart: 42-51-0266PITV, hipFemur nail, sterile ()[id number] FDAStart: 16-71-2074YVPB, hipSpiral blade()[id number] FDAStart: 37-01-0283Wnkpdltbr, pacemakerEndocardial defibrillation lead ()[id number])[id number] FDAStart: 59-88-4746Yxewsnxrj, pacemakerDual-chamber implantable defibrillator ()[id number] FDAStart: 02-47-9149Svogewtwn, pacemakerEndocardial/interventricular septal pacing lead ()[id number](21)[id number] FDAStart: 35-79-7001BQ STENT MARK FRONTIER 3.5 X 18FDAStart: 12-62-4826HC STENT MARK FRONTIER 3.5 X 18FDAStart: 98-89-3281YndlzsyTzmve: 48-43-8321Dwc Needle, Diabetic (Bd Ultra-Fine Marichuy Pen Needle) 32 gauge x 5/32 needleStart: 23-37-6880MR STENT MARK FRONTIER 3.5 X 18 FDAStart: 30-25-9141StodbtiErqfi: 41-25-1464Ggj Needle, Diabetic (Bd Ultra-Fine Marichuy Pen Needle) 32 gauge x 5/32 needleStart: 82-46-5389OV STENT MARK FRONTIER 3.5 X 18FDAStart: 06-82-0251HouqshlCnzln: 45-55-9791Uep Needle, Diabetic (Bd Ultra-Fine Marichuy Pen Needle) 32 gauge x 5/32 needleStart: 08-60-8706RQ STENT MARK FRONTIER 3.5 X 18FDAStart: 37-15-9390JkheprvPyukv: 76-04-2185Gcr Needle, Diabetic (Bd Ultra-Fine Marichuy Pen Needle) 32 gauge x 5/32 needleStart: 44-00-0665GQ STENT MARK FRONTIER 3.5 X 18FDAStart: 11-25-1029GsljcfhKknkp: 60-13-1550Lkw Needle, Diabetic (Bd Ultra-Fine Marichuy Pen Needle) 32 gauge x 5/32 needleStart: 51-65-6728XO STENT MARK FRONTIER 3.5 X 18FDAStart: 07-16-2023 LancetsStart: 50-73-0871Uqi Needle, Diabetic (Bd Ultra-Fine Marichuy Pen Needle) 32 gauge x 5/32 needleStart: 99-16-7702AE STENT MARK FRONTIER 3.5 X 18FDAStart: 94-80-1931AispzmcYkqaq: 65-10-2595Qsd Needle, Diabetic (Bd Ultra-Fine Marichuy Pen Needle) 32 gauge x 5/32 needleStart: 13-59-8477KW STENT MARK FRONTIER 3.5 X 18 FDAStart: 90-65-9002QssgqkxItaiz: 74-37-5010Msc Needle, Diabetic (Bd Ultra-Fine Marichuy Pen Needle) 32 gauge x 5/32 needleStart: 16-50-4816GZ STENT MARK FRONTIER 3.5 X 18FDAStart: 88-39-1827JwoxtexDhrgg: 35-88-3129Dnz Needle, Diabetic (Bd Ultra-Fine Marichuy Pen Needle) 32 gauge x 5/32 needleStart: 97-63-7822EW STENT MARK FRONTIER 3.5 X 18FDAStart: 51-62-1533PyghxraMlnmh: 55-69-7142Nqk Needle, Diabetic (Bd Ultra-Fine Marichuy Pen Needle) 32 gauge x 5/32 needleStart: 99-52-2799EK STENT MARK FRONTIER 3.5 X 18FDAStart: 70-68-6785UlofawdEkbte: 62-80-5453Bfv Needle, Diabetic (Bd Ultra-Fine Marichuy Pen Needle) 32 gauge x 5/32 needleStart: 50-30-5421PI STENT MARK FRONTIER 3.5 X 18FDAStart: 07-16-2023 LancetsStart: 86-42-1161Byw Needle, Diabetic (Bd Ultra-Fine Marichuy Pen Needle) 32 gauge x 5/32 needleStart: 22-74-5280TO STENT MARK FRONTIER 3.5 X 18FDAStart: 51-94-4822GoqtedtQylrl: 12-00-4172Yns Needle, Diabetic (Bd Ultra-Fine Marichuy Pen Needle) 32 gauge x 5/32 needleStart: 36-49-5879KA STENT MARK FRONTIER 3.5 X 18 FDAStart: 90-90-8295OluvvwgPgiog: 63-06-5728Dob Needle, Diabetic (Bd Ultra-Fine Marichuy Pen Needle) 32 gauge x 5/32 needleStart: 10-17-7120YQ STENT MARK FRONTIER 3.5 X 18FDAStart: 82-92-4705BfluaksOxhsb: 23-70-4515Mxr Needle, Diabetic (Bd Ultra-Fine Marichuy Pen Needle) 32 gauge x 5/32 needleStart: 19-88-0319BW STENT MARK FRONTIER 3.5 X 18FDAStart: 07-68-5386WfyaeyuFiwij: 02-88-2793Ghz Needle, Diabetic (Bd Ultra-Fine Marichuy Pen Needle) 32 gauge x 5/32 needleStart: 03-42-170964593035Ldcpi: 27-34-3074MY STENT MARK FRONTIER 3.5 X 18FDAStart: 97-26-6828UinqbcdJuayt: 95-45-3850Tik Needle, Diabetic (Bd Ultra-Fine Marichuy Pen Needle) 32 gauge x 5/32 needleStart: 03-76-2097NX STENT MARK FRONTIER 3.5 X 18 FDAStart: 19-38-8564SdrgilcHgtpl: 43-66-2944Yil Needle, Diabetic (Bd Ultra-Fine Marichuy Pen Needle) 32 gauge x 5/32 needleStart: 75-94-5472YV STENT MARK FRONTIER 3.5 X 18FDAStart: 25-15-6513GqdvehwHawuv: 58-86-3072Ebi Needle, Diabetic (Bd Ultra-Fine Marichuy Pen Needle) 32 gauge x 5/32 needleStart: 81-48-6414WT STENT MARK FRONTIER 3.5 X 18FDAStart: 75-86-7631QqwpijyWvdjq: 00-82-9585Xux Needle, Diabetic (Bd Ultra-Fine Marichuy Pen Needle) 32 gauge x 5/32 needleStart: 31-53-7936XA STENT MARK FRONTIER 3.5 X 18FDAStart: 51-71-7233LbprjgjHzsuf: 08-96-7291Njm Needle, Diabetic (Bd Ultra-Fine Marichuy Pen Needle) 32 gauge x 5/32 needleStart: 87-93-9178BZ STENT MARK FRONTIER 3.5 X 18FDAStart: 43-08-7968Okrgy Sugar Diagnostic stripStart: 79-93-4264Rtmjnab miscStart: 44-91-2288Cji Needle, Diabetic (Bd Ultra-Fine Marichuy Pen Needle) 32 gauge x 5/32 needleStart: 56-22-5163IH STENT MARK FRONTIER 3.5 X 18FDAStart: 08-81-5053Rfrnq Sugar Diagnostic stripStart: 45-91-2528Zqclxdm miscStart: 11-17-2440Iqr Needle, Diabetic (Bd Ultra-Fine Marichuy Pen Needle) 32 gauge x 5/32 needleStart: 97-52-8325XL STENT MARK FRONTIER 3.5 X 18FDAStart: 99-83-0195Cgooi Sugar Diagnostic stripStart: 10-90-3903Xlgwcze miscStart: 36-90-0742Obo Needle, Diabetic (Bd Ultra-Fine Marichuy Pen Needle) 32 gauge x 5/32 needleStart: 61-33-5188UG STENT MARK FRONTIER 3.5 X 18FDAStart: 01-44-4222Avyoe Sugar Diagnostic stripStart: 62-38-4414Mcondcx miscStart: 34-81-6936Con Needle, Diabetic (Bd Ultra-Fine Marichuy Pen Needle) 32 gauge x 5/32 needleStart: 97-06-0426LJ STENT MARK FRONTIER 3.5 X 18FDAStart: 34-42-4027Kyhmi Sugar Diagnostic stripStart: 94-62-4844Unoxyxt miscStart: 66-39-0397Ngn Needle, Diabetic (Bd Ultra-Fine Marichuy Pen Needle) 32 gauge x 5/32 needleStart: 83-19-1190Zam with insulin once daily in case of pump [id number]: 94-31-9668IH STENT MARK FRONTIER 3.5 X 18FDAStart: 25-37-6531Yqxxu Sugar Diagnostic stripStart: 00-25-2791Ihooqfi miscStart: 55-97-3470Dkv Needle, Diabetic (Bd Ultra-Fine Marichuy Pen Needle) 32 gauge x 5/32 needleStart: 72-76-5766MY STENT MARK FRONTIER 3.5 X 18FDAStart: 51-59-2517Rxwkd Sugar Diagnostic stripStart: 27-02-1425Dhfifmk miscStart: 31-66-4999Tho Needle, Diabetic (Bd Ultra-Fine Marichuy Pen Needle) 32 gauge x 5/32 needleStart: 60-85-9120BZ STENT MARK FRONTIER 3.5 X 18FDAStart: 69-37-4976Epdgy Sugar Diagnostic stripStart: 19-55-4296Jmgbmiy miscStart: 51-13-9608Hbf Needle, Diabetic (Bd Ultra-Fine Marichuy Pen Needle) 32 gauge x 5/32 needleStart: 57-69-6390DU STENT MARK FRONTIER 3.5 X 18FDAStart: 01-75-3394Uvpdu Sugar Diagnostic stripStart: 27-81-4189Biempjl miscStart: 48-43-6494Esz Needle, Diabetic (Bd Ultra-Fine Marichuy Pen Needle) 32 gauge x 5/32 needleStart: 62-59-1945KD STENT MARK FRONTIER 3.5 X 18FDAStart: 11-20-2418Ynkhi Sugar Diagnostic stripStart: 74-20-7333Hwwqcgc miscStart: 75-25-2971Dzq Needle, Diabetic (Bd Ultra-Fine Marichuy Pen Needle) 32 gauge x 5/32 needleStart: 09-05-2023 Goals DatePatient GoalDesired Activity/State Functional Status CqkkUihrrrgoriMriknxEkqnukso50-23-6314Ipcbefzdzc statusPatient at [facility] Work Phone: [phone]yu statusPatient at Baseline [facility] Work Phone: [phone]nkrx statusPatient is Progressing [facility] Work Phone: [phone]t statusPatient at Baseline [facility] Work Phone: [phone] statusPatient at Baseline [facility] Work Phone: [phone] Health Questionnaire 2 item (PHQ-2) [Reported][facility] HospitalVgwduzjcwl26-07-0273Rbukstqfmz statusPatient at [facility] Work Phone: [phone] statusPatient is Progressing [facility] Work Phone: [phone] statusPatient at Baseline [facility] Work Phone: [phone] Health Questionnaire 2 item (PHQ-2) [Reported][facility] HospitalPezymcjwti88-94-5659Givutzhmhx statusPatient is Progressing [facility] Work Phone: [phone] statusPatient is Progressing [facility] Work Phone: [phone] statusPatient Not at Baseline [facility] Work Phone: Mental Status NtlqDwywqdjfblKdblokFjkosghq74-68-7052Dbxvqykgl functionCognitive Status [facility] Work Phone: [phone] functionCognitive Status [facility] Work Phone: [phone] functionCognitive Status [facility] Work Phone: [phone] functionCognitive Status [facility] Work Phone: [phone] functionCognitive Status [facility] Work Phone: [phone] functionCognitive Status [facility] Work Phone: [phone] functionCognitive Status [facility] Work Phone: [phone] functionCognitive Status [facility] Work Phone: [phone] functionCognitive Status Patient is Progressing Toward [facility] Work Phone: [phone] functionCognitive Status Patient is Progressing Toward [facility] Work Phone: [phone] functionCognitive Status Patient at [facility] Work Phone: Clinical Notes 01-07-2022 to 05-17-2025 Note Date & BwxcAabzLwhixwzp86-59-7862 NoteED Patient Education Note Obstetrics and Gynecology Urinary Tract Infection, Adult A urinary tract infection (UTI) is an infection of any part of the urinary tract. The urinary tractincludes the kidneys, ureters, bladder, and urethra. These organs make, store, and get rid of urinein the body. An upper UTI affects the ureters and kidneys. A lower UTI affects the bladder and urethra. What are the causes? Most urinary tract infections are caused by bacteria in your genital area around your urethra, where urine leaves your body. These bacteria grow and cause inflammation of your urinary tract. What increases the risk? You are more likely to develop this condition if: ??? You have a urinary catheter that stays in place. ??? You are not able to control when you urinate or have a bowel movement (incontinence). ??? You are female and you: ? Use a spermicide or diaphragm for control. ? Have low estrogen levels. ? Are . ??? You have certain genes that increase your risk. ??? You are sexually active. ??? You take antibiotic medicines. ??? You have a condition that causes your flow of urine to slow down, such as: ? An enlarged prostate, if you are male. ? Blockage in your urethra. ? A kidney stone. ? A nerve condition that affects your bladder control (neurogenic bladder). ? Not getting enough to drink, or not urinating often. ??? You have certain medical conditions, such as: ? Diabetes. ? A weak disease-fighting system (immunesystem). ? Sickle cell disease. ? Gout. ? Spinal cord injury. What are the signs or symptoms? Symptoms of this condition include: ??? Needing to urinate right away (urgency). ??? Frequent urination. This may include small amounts of urine each time you urinate. ??? Pain or burning with urination. ??? Blood in the urine. ??? Urine that smells bad or unusual. ??? Trouble urinating. ??? Cloudy urine. ??? Vaginal discharge, if you are female. ??? Pain in the abdomen or the lower back. You may also have: ??? Vomiting or a decreased appetite. ??? Confusion. ??? Irritability or tiredness. ??? A fever or chills. ??? Diarrhea. The first symptom in older adults may be confusion. In some cases, they may not have any symptoms until the infection has worsened. How is this diagnosed? This condition is diagnosed based on your medical history and a physical exam. You may also have other tests, including: ??? Urine tests. ??? Blood tests. ??? Tests for STIs (sexually transmitted infections). If you have had more than one UTI, a cystoscopy or imaging studies may be done to determine the cause of the infections. How is this treated? Treatment for this condition includes: ??? Antibiotic medicine. ??? Bupj-rpk-gqavbcn medicines to treat discomfort. ??? Drinking enough water to stay hydrated. If you have frequent infections or have other conditions such as a kidney stone, you may need to see a health care provider who specializes in the urinary tract (urologist). In rare cases, urinary tract infections can cause sepsis. Sepsis is a life- threatening condition that occurs when the body responds to an infection. Sepsis is treated in the hospital with IV antibiotics, fluids, and other medicines. Follow these instructions at home: Medicines ??? Take ppji-ity-sfvmrlz and prescription medicines only as told by your health care provider. ??? If you were prescribed an antibiotic medicine, take it as told by your health care provider. Donot stop using the antibiotic even if you start to feel better. General instructions ??? Make sure you: ? Empty your bladder often and completely. Do not hold urine for long periods of time. ? Empty your bladder after sex. ? Wipe from front to back after urinating or having a bowel movement if you are female. Use each tissue only one time when you wipe. ??? Drink enough fluid to keep your urine pale yellow. ??? Keep all follow-up visits. This is important. Contact a health care provider if: ??? Your symptoms do not get better after 1?2 days. ??? Your symptoms go away and then return. Get help right away if: ??? You have severe pain in your back or your lower abdomen. ??? You have a fever or chills. ??? You have nausea or vomiting. Summary ??? A urinary tract infection (UTI) is an infection of any part of the urinary tract, which includes the kidneys, ureters, bladder, and urethra. ??? Most urinary tract infections are caused by bacteria in your genital area. ??? Treatment for this condition often includes antibiotic medicines. ??? If you were prescribed an antibiotic medicine, take it as told by your health care provider. Donot stop using the antibiotic even if you start to feel better. ??? Keep all follow-up visits. This is important. This information is not intended to replace advice given to you by your health care provider. Make amrcus (more content not included)...[facility]10-23-2025 NoteHNO ID: [id number] Author: AYANA ZAVALA APRN.UTILITY SYSTEM OPERATOR Service: ? Author Type: Nurse Practitioner Type: Progress Notes Filed: 05/03/2025 12:25 Note Text: Endocrinology Follow Up History of Present Illness Manolo Roche is a 89 year old male presents today for follow up of DM Type 1. Here with . At [facility] 03/2025, patient was transitioned from Omnipod to subcutaneous insulin injections due to concerns for safety while on the pump. He was subsequently admitted for hyperglycemia after BG was noted to be >700 on labs. Was discharged to SNF and returned home yesterday. Per SNF records, patient was on 20 units of Basaglar daily. No note of prandial insulin on SNF med list but patient reports they were giving him insulin with food the time he was there. He didn't see note for 20 units of Basaglar on list and saw 3 mL (for pen size) and took only 3 units of Lantus last night for this reason. Blood sugar is elevated today. He took only 4 units of Novolog with breakfast and no sliding scale. is waking him up around 9 am to have breakfast as otherwise he will stay in bed late and Novolog doses are too close together later in the evening. He gets busy and may not eat lunch until 2 pm. Then they may have dinner around 7 pm. They are aware to separate Novolog by at least 4 hours to prevent stacking. Current regimen: Lantus 20 units daily Novolog 4 units with meals + sliding scale If Blood Glucose (mg/dL) is <150 Give 0 extra units 151-200 Give 1 extra unit 201-250 Give 2 extra units 251-300 Give 3 extra units 301-350 Give 4 extra units 351-400 Give 5 extra units >400 Give 6 extra units Seeing urology for urinary retention and is now utilizing a catheter. 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 Per patient, this was done due to [...] Omnipod DASH to Omnipod 5 on 09/04/24. He has continued to have issues with obtaining his supplies. He has been off his pump for a few days afternoon as pharmacy could not fill as they keep falling off. He has not taken Lantus and is using Novolog only instead. admits he is not using Novolog consistently. recalls he is not bolusing consistently and will ignore his Omnipod alarms at times. Date of Diagnosis: 2019 Last HbA1c: Hemoglobin A1C (%) Date Value 04/09/2025 12.8 Hemoglobin A1C (POCT) (%) Date Value 10/26/2024 12.0 07/06/2024 10.1 Family history of diabetes includes none. Complications Microvascular: none Macrovascular: CAD s/p PCI Comorbidities: HTN, COPD, CAD, CHF, ICM, BPH, IPMN, pancreatitis Health Maintenance Topics Topic Date Due Dilated Retinal Exam Never done Diabetic Foot Exam Never done Prior DM Medications: Jardiance- stopped by cardiology Current DM Related Medications: Current Medications 05/03/2025 DIABETES THERAPIES Medication Dosage Pharm Subclass insulin aspart U-100 (NOVOLOG FLEXPEN U-100 INSULIN) 100 unit/mL (3 mL) pen Inject 4 units with meals plus sliding scale (Max daily dose of 30 units daily) Insulin Analogs - Rapid Acting insulin aspart U-100 (NOVOLOG U-100 INSULIN ASPART) 100 unit/mL ADMINISTER PER PUMP (MAX DAILY 75 UNITS) Insulin Analogs - Rapid Acting insulin glargine (LANTUS SOLOSTAR U-100 INSULIN) 100 unit/mL (3 mL) Inject 12 Units subcutaneously daily at bedtime. Insulin Analogs - Long Acting CARDIOVASCULAR Medication [...] Analgesics ASPIRIN Medication Dosage Pharm Subclass aspirin, (more content not included)...[facility]10-23-2025 Note HNO ID: [id number] Author: MIGUEL A GOODWIN MA Service: ? Author Type: Relief Pilot Type: Procedures Filed: 05/03/2025 12:25 Note Text:[facility]10-10-2025 Hospital Discharge instructions Follow Up Care 04/20/2025 10:32:21 With:JULIO OGLESBY, Tristan Interiano, URL Address: [address] [place], [place] [id number] When: Unknown Comments:Pending Cysto/bladder function testing [facility] 09-29-2025 NoteHNO ID: [id number] Author: AYANA ZAVALA APRN.UTILITY SYSTEM OPERATOR Service: ? Author Type: Nurse Practitioner Type: Progress Notes Filed: 04/10/2025 08:17 Note Text: Endocrinology Follow Up History of Present Illness Manolo Roche is a 89 year old male presents today for follow up of DM Type 1. Here with . At [facility] 10/2024, basal rate was reduced overnight. [...] or vomiting. He was called from his hr operations advisor's office a few weeks ago after receiving labwork and BG was >500. Labwork from this AM is pending. recalls he is not bolusing consistently and will ignore his Omnipod alarms at times. Patient recalls being consistent with his Novolog and Lantus injections when he was on these. 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 Per patient, this was done due to [...] OTHER Medication Dosage Pharm Subclass Blood-Glucose Sensor (2CODE Online G7 SENSOR) delfin Change every 10 days. [...] needed. Agents to treat Hypoglycemia (Hyperglycemics) Insulin Molino, Disposable, (BD ULTRA-FINE MARICHUY PEN NEEDLE) 32 gauge x 5/32 Use with insulin once daily in case of pump failure Medical Supplies and DME - Insulin Molino-Syringes and Admin Supplies insulin pump cart,auto,B (more content not included)...[facility]09-16-2025 Evaluation note* Diagnosis Onset Date Resolution Status Admit Date Ischemic cardiomyopathy acuteSeptember 2024 9:54amType 1 diabetes mellitusacuteSeptember 2024 9:54amAcute GI bleedingresolvedSept2024 9:54amCoronary artery disease involving [place] coronary artery of [place] heart wiinactiveSept2024 9:54amHypertensioninactiveSeptember 2024 9:54amS/P PTCA (percutaneous transluminal coronary angioplasty)inactiveSept2024 9:54amH pylori ulceracuteOctober 2024 10:11amIron deficiencyacuteOctober 2024 10:11amIschemic cardiomyopathyacuteOctober 2024 10:11amType 1 diabetes mellitusacuteOctober 2024 10:11amAcute GI bleedingresolvedOctober 2024 10:11amNon-ST elevation myocardial infarction (NSTEMI), subendocardial infarction,resolvedOctober 2024 10:11amCoronary artery disease involving [place] coronary artery of [place] heart wiinactiveOctober 2024 10:11amHypertensioninactiveOctober 2024 10:11amS/P PTCA (percutaneous transluminal coronary angioplasty)inactiveOctober 2024 10:11am [facility] Work Phone: 1(274) 360-799107-29-2025 Telephone encounter Note* Telephone Encounter - Ayana Zavala APRN.CNP - 02/06/2025 11:55 AM EDT Please fax labs to [facility]. See other encounter- Medicare is requiring documentation of his insulin level in order to cover his insulin under Part B. Please notify patient BG needs to be under 225 mg/dL in the AM in order for insulin level to be accurate. [facility]07-29-2025 Miscellaneous Notes* Telephone Encounter - Ayana Zavala APRN.CNP - 02/06/2025 11:55 AM EDT Please fax labs to [facility]. See other encounter- Medicare is requiring documentation of his insulin level in order to cover his insulin under Part B. Please notify patient BG needs to be under 225 mg/dL in the AM in order for insulin level to be accurate. documented in this encounterHolzer Hospital07-28-2025 Telephone encounter Note * Telephone Encounter - Ayana Zavala APRN.CNP - 02/05/2025 11:14 AM EDT Medicare requires a C-peptide (insulin level) on record for patient when filling insulin via Part Bto use in insulin pump. I do not see one completed. Please have patient obtain fasting lab. His BG needs to be under 225 mg/dL in the morning for this to be an accurate reading. [facility]07-28-2025 Miscellaneous Notes* Telephone Encounter - Ayana Zavala APRN.CNP - 02/05/2025 11:14 AM EDT Medicare requires a C-peptide (insulin level) on record for patient when filling insulin via Part Bto use in insulin pump. I do not see one completed. Please have patient obtain fasting lab. His BG needs to be under 225 mg/dL in the morning for this to be an accurate reading. documented in this encounterHolzer Hospital06-24-2025 History of Present illness Narrative* Marie Tejeda, DO - 01/02/2025 11:30 AM EDT Images from the original note were not included. Manolo Roche is a 89 y.o. male presents with [...] home. He also reports balance issues, feeling lighthea ded if he stands up too quickly. A history of coughing and chest congestion has improved significantly, although he still occasionally needs to clear his throat. Approximately 10 days ago, he experienced an episode of severe pain at 3:00 AM, described as similar to a bruised or cracked rib. This pain is exacerbated by certain breathing patterns and is locatedon the same side as a previous staph infection. Intermittent stomach pain is reported, which is notpresent at the time of the visit. He occasionally experiences a jerking sensation, similar to phantom pain. Overeating can exacerbate his symptoms, although this is a rare occurrence. Pain managementhas been with Tylenol. 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 [facility] [place] VASECTOMY 1989 SOCIAL HISTORY: [...] Depression - At risk (01/21/2024) Received from [employer] PHQ-2 Total Score: 3 FAMILY HISTORY: Family [...] (PRILOSEC) 20 mg, Daily before breakfast pancrelipase, Zov-Bwth-Zhet, (Creon) 79220-44569 units capsule TAKE 2 CAPSULES BY MOUTH [...] 2. End-stage heart failure. - Classified as [place] Heart Association Class III/IV, indicating severe heart [...] and monitoring are necessary. documented in this encounterPike County Memorial [id number] Instructions* Patient Instructions* Selma Wilcox LPN - 01/02/2025 11:30 AM EDT ?? ATTENTION: [employer]Lama Policy Update - Effective 12/13/24 Beginning today, our nursing team will review eLama messages twice daily and help determine the [...] a brief office visit, if handled via eLama. We want you to feel informed and confident when using eLama, so here are a few examples to [...] and helpful, while ensuring you get the rightcare at the right time. You will be notified prior to any communication charge. Thank you for partnering with us in your health! documented in this encounterPike County Memorial [id number] Telephone encounter Note* Telephone Encounter - Erick Peguero LPN - 12/27/2024 5:54 PM EDT Spoke to patient's . The sensors are ready for bean picker machine operator at pharmacy. She will let us know whereshe would like the refills sent when they are ready, nothing further for now. [facility]06-18-2025 Miscellaneous Notes* Telephone Encounter - Erick Peguero LPN - 12/27/2024 5:54 PM EDT Spoke to patient's . The sensors are ready for bean picker machine operator at pharmacy. She will let us know whereshe would like the refills sent when they are ready, nothing further for now. * Telephone Encounter - Ayana Zavala APRN.CNP - 12/27/2024 9:53 AM EDT Please call [facility] to inquire what is needed from the office. documented in this encounterHolzer Hospital06-18-2025 Telephone encounter Note * Telephone Encounter - Ayana Zavala APRN.CNP - 12/27/2024 9:53 AM EDT Please call [facility] to inquire what is needed from the office. [facility]06-16-2025 Telephone encounter Note* Telephone Encounter - Ayana Zavala APRN.CNP - 12/25/2024 8:03 AM EDT Rx sent however patient obtains typically from [facility], are they still having issues obtaining from there? [facility]06-16-2025 Miscellaneous Notes* Telephone Encounter - Ayana Zavala APRN.CNP - 12/25/2024 8:03 AM EDT Rx sent however patient obtains typically from [facility], are they still having issues obtaining from there? * Telephone Encounter - Sharonda Felipe - 12/19/2024 12:04 PM EDT Pt needs refill on sensors. Do not see on current med list. Pt [facility]. Insurance is not going to pay for this until 01/03. Spouse is requesting to speak to a nurse about getting an alternative until then. Please review and advise. Patient has been identified by name and birthdate. Duration of symptoms: N/A Person calling: self Call patient at: on cell [phone] (cell) Was an appointment scheduled: No Closing statement: Results or non-symptom based questions: Thank you for calling [facility], your call will be returned within the next business day. Sharonda Kay documented in this encounterHolzer Hospital06-10-2025 Telephone encounter Note * Telephone Encounter - Sharonda Felipe - 12/19/2024 12:04 PM EDT Pt needs refill on sensors. Do not see on current med list. [facility]. Insurance is not going to pay for this until 01/03. Spouse is requesting to speak to a nurse about getting an alternative until then. Please review and advise. Patient has been identified by name and birthdate. Duration of symptoms: N/A Person calling: self Call patient at: on cell [phone] (cell) Was an appointment scheduled: No Closing statement: Results or non-symptom based questions: Thank you for calling [facility], your call will be returned within the next business day. Sharonda Kay [facility]06-03-2025 Telephone encounter Note* Telephone Encounter - Steven Patrick - 12/12/2024 3:35 PM EDT Prescription Refill Information Pt states he needs [...] Steven Patrick December 12, 2024 3:37 PM [facility]06-03-2025 Miscellaneous Notes* Telephone Encounter - Steven Patrick - 12/12/2024 3:35 PM EDT Prescription Refill Information Pt states he needs [...] 12, 2024 3:37 PM documented in this encounterHolzer Hospital04-23-2025 Telephone encounter Note * Telephone Encounter - Ayana Zavala APRN.CNP - 11/01/2024 11:59 AM EDT Please call pharmacy to inquire which insulin is covered or what they need prescription to say- do they need it sent as brand Novolog? [facility]04-23-2025 Miscellaneous Notes* Telephone Encounter - Ayana Zavala APRN.CNP - 11/01/2024 11:59 AM EDT Please call pharmacy to inquire which insulin is covered or what they need prescription to say- do they need it sent as brand Novolog? documented in this encounterHolzer Hospital04-17-2025 Instructions* Patient Instructions* Ayana Zavala APRN.CNP - 10/26/2024 12:38 PM EDT Plan Basal 12am 0.4 8am 0.5 ICR 12am 15 ISF 12am 60 BG Correction Threshold 12am 150 BG Target 12am 150 Recommend discontinuing Farxiga due to risk of euglycemic diabetic ketoacidosis- discussed with PCP/ hr operations advisor BACKUP INSULIN PLAN: Only use this if [...] up in 8 weeks documented in this encounterHolzer Hospital04-17-2025 NoteHNO ID: [id number] Author: AYANA ZAVALA APRN.CNP Service: ? Author Type: Nurse Practitioner Type: Progress Notes Filed: 10/26/2024 13:11 Note Text: Endocrinology Follow Up History of Present Illness Manolo Roche is a 89 year old male presents today for follow up of DM Type 1. Here with . 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 Per patient, this was done due to [...] needed. Agents to treat Hypoglycemia (Hyperglycemics) Insulin Molino, Disposable, (BD ULTRA-FINE MARICHUY PEN NEEDLE) 32 gauge x 5/32 Use with insulin once daily in case of pump failure Medical Supplies and DME - Insulin Molino-Syringes and Admin Supp (more content not included)...[facility]04-17-2025 History of Present illness Narrative* Ayana Zavala, AMADA.UTILITY SYSTEM OPERATOR - 10/26/2024 12:05 PM EDT Endocrinology Follow Up History of Present Illness Manolo Roche is a 89 year old male presents today for follow up of DM Type 1. Here with . At [facility] 09/25/2024, basal rate settings were changed, sensor was reconnected with pump, and he was resumed in Automated Mode. At that time, labs revealed BG 614 mg/dL, anion gap 17 (with normal CO2 of 24). Patient was advisedto go to the ER. When he was seen in the ER, sugar had normalized to the mid 100s and he was discharged home. Since then, sugars initially improved, but he has since had several issues. Had delayed shipment ofCGMs from his supplier but did ultimately receive. He also had a pod failure recently and needed tochange this. He has been following up closely [...] picked up refill of this and it was$200 for a 30 day supply. 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 Per patient, this was done due to [...] needed. Agents to treat Hypoglycemia (Hyperglycemics) Insulin Molino, Disposable, (BD ULTRA-FINE MARICHUY PEN NEEDLE) 32 gauge x 5/32 Use with insulin oncedaily in case of pump failure Medical Supplies and DME - Insulin Molino-Syringes and Admin Supplies insulin pump cart,auto,BT,G6/7 (OMNIPOD 5 G6-G7 PODS, GEN 5,) crtg Change every 72 hours. Medical Supply, FDB Superset Lactobac no.41/Bifidobact no.7 (PROBIOTIC-10 ORAL) Take by mouth once daily. Intestinal Chayo Modifiers fshgtq-fcjwtcze-qyyapii (CREON) 24,000-76,000 -120,000 unit cpDR Take 2 capsules by mouth three times daily with meals. and 1 with snacks (8/day) Digestive Enzyme Mixtures lutein-zeaxanthin 25-5 mg cap Take by mouth once daily. Alternative Therapy - Antioxidant Omeprazole Magnesium 20 mg tablet Take 20 mg by mouth. Gastric Acid Secretion Breaker Up Machine Operator - Proton PumpInhibitors (PPIs) PARoxetine (PAXIL) 40 mg tablet Take 40 mg by mouth every morning. Antidepressant - Selective Serotonin Reuptake Inhibitors (SSRIs) tamsulosin (FLOMAX) 0.4 mg Take 0.4 mg by mouth. Prostatic Hypertrophy Agent - mhskq-1-BnsqqnjngzdpEboftgebdib Physical Activity: No formal program Diet: CHO [...] - 5.500 uU/mL Final Impression/Recommendations IMPRESSION Manolo Roche is a 89 year old here for [...] elevations. When he is in Automated Mode, glucoseis much better controlled, without lows overnight and [...] Advised to discuss further with PCP / hr operations advisor, but from our standpoint he would be [...] in managing pump continues to darell concern. Plan Basal 12am 0.4 8am 0.5 ICR 12am 15 ISF 12am 60 BG Correction Threshold 12am 150 BG Target 12am 150 Recommend discontinuing Farxiga- discussed with PCP / hr operations advisor BACKUP INSULIN PLAN: Only use this if [...] time of the patient encounter Ayana Zavala APRN.UTILITY SYSTEM OPERATOR (Signed electronically to expedite mailing) documented in this encounterHolzer Hospital04-04-2025 Evaluation note* Diagnosis Onset Date Resolution Status Admit Date Ischemic cardiomyopathy acuteApril 2024 9:10amType 1 diabetes mellitusacuteApril 2024 9:10am Acute GI bleedingresolvedApril 2024 9:10amCoronary artery disease involving [place] coronary artery of [place] heart wiinactiveApril 2024 9:10am HypertensioninactiveApril 2024 9:10amS/P PTCA (percutaneous transluminal coronary angioplasty)inactiveApril 2024 9:10am [facility] Work Phone: 1(690) 608-840504-02-2025 Telephone encounter Note* Telephone Encounter - Gaye Mata RN - 10/11/2024 4:17 PM EDT Patient's sent message patient had received Dexcom G7 CGM sensors from [employer] lastnight. Patient applied Omnipod 6 insulin pump [...] and CGM in the next few days. [facility]04-02-2025 Miscellaneous Notes* Telephone Encounter - Gaye Mata RN - 10/11/2024 4:17 PM EDT Patient's sent message patient had received Dexcom G7 CGM sensors from [employer] lastnight. Patient applied Omnipod 6 insulin pump [...] the next few days. documented in this encounterHolzer Hospital04-02-2025 Miscellaneous Notes* Telephone Encounter - Gaye Mata RN - 10/11/2024 4:00 PM EDT [facility] for pt to return call. Patient appears to now be connected to the sensor. Advised how to treat hypoglycemia. Recommended see educator for appt to review pump and sensor operation documented in this encounterHolzer Hospital04-02-2025 Telephone encounter Note * Telephone Encounter - Gaye Mata RN - 10/11/2024 4:00 PM EDT [facility] for pt to return call. Patient appears to now be connected to the sensor. Advised how to treat hypoglycemia. Recommended see educator for appt to review pump and sensor operation [facility]04-02-2025 Telephone encounter Note* Telephone Encounter - Ruchi Rhoades - 10/11/2024 11:37 AM EDT Images from the original note were not included. [facility]04-02-2025 Miscellaneous Notes* Telephone Encounter - Ruchi [...] notes attached Questions Completed Waiting for determination [facility] Prior Modeling Analyst Endocrinology and Metabolism [place] * Telephone Encounter - Ayana Zavala APRN.CNP - 10/11/2024 8:07 AM EDT Received notice from pharmacy PA is request for Ominpod 5 pods. Please complete. documented in this encounterHolzer Hospital04-02-2025 Telephone encounter Note * Telephone Encounter - Ruchi Rhoades - 10/11/2024 11:31 AM EDT Images from the original note were not included. Initiated PA for insulin pump cart,auto,BT,G6/7 (OMNIPOD 5 G6-G7 PODS, GEN 5,) crtg through [employer] Medicare Chart notes attached Questions Completed Waiting for determination Ruchi Prior Modeling Analyst Endocrinology and Metabolism [place] [facility]04-02-2025 Telephone encounter Note* Telephone Encounter - Ayana Zavala APRN.CNP - 10/11/2024 8:07 AM EDT Received notice from pharmacy PA is request for Ominpod 5 pods. Please complete. [facility]04-02-2025 Telephone encounter Note* Telephone Encounter - Ayana Zavala APRN.CNP - 10/11/2024 8:06 AM EDT Will send PA request in other encounter to PA team. [facility]04-02-2025 Miscellaneous Notes* Telephone Encounter - Ayana Zavala APRN.CNP - 10/11/2024 8:06 AM EDT Will send PA request in other encounter to PA team. documented in this encounterHolzer Hospital04-01-2025 Telephone encounter Note * Telephone Encounter - Erick Peguero LPN - 10/10/2024 3:28 PM EDT Spoke to [facility], he reported that the Dexcom supplies should be delivered today vis [employer]. Tracking nbr [id number]. According to his notes it was out for delivery at 5:48 am 10/10/2024. I attempted to reach patient at both nbrs listed, no answer. left with update. I will send a MyChart message as well. [facility]04-01-2025 Miscellaneous Notes* Telephone Encounter - Erick Peguero LPN - 10/10/2024 3:28 PM EDT Spoke to [facility], he reported that the Dexcom supplies should be delivered today vis [employer]. Tracking nbr [id number]. According to his notes it was out [...] office for follow up. documented in this encounterHolzer Hospital04-01-2025 Telephone encounter Note * Telephone Encounter [...] to patient's provider office for follow up. [facility]03-26-2025 Telephone encounter Note* Telephone Encounter - Gaye Mata RN - 10/04/2024 4:38 PM EDT [employer] called stating that he is out of Dexcom G7 CGM sensors and has been having difficulty getting the shipment from [employer], his DME supplier. Patient states he made 3 calls to them this week, one including a sawmill supervisor at [facility], who promised that the shipment was sent and would be received in a day or two. Advised patient to contact his provider's office to see if they are able to help as they submitted all the original paperwork to [facility] back in August and I am not sure if they are waiting on something from the office. Patient was also told to see if the provider's office had Dexcom G7 sensor samples to provide until his shipment arrives so he does not have to drive out to [facility]. Patient verbalized understanding. [facility]03-26-2025 Miscellaneous Notes* Telephone Encounter - Gaye Mata RN - 10/04/2024 4:38 PM EDT [employer] called stating that he is out of Dexcom G7 CGM sensors and has been having difficulty getting the shipment from [employer], his DME supplier. Patient states he made 3 calls to them this week, one including a sawmill supervisor at [facility], who promised that the shipment was sent and would be received in a day or two. Advised patient to contact his provider's office to see if they are able to help as they submitted all the original paperwork to [facility] back in August and I am not sure if they are waiting on something from the office. Patient was also told to see if the provider's office had Dexcom G7 sensor samples to provide until his shipment arrives so he does not have to drive out to [facility]. Patient verbalized understanding. documented in this encounterHolzer Hospital03-19-2025 Telephone encounter Note * Telephone Encounter - Gaye Mata RN - 09/27/2024 1:22 PM EDT In error [facility]03-19-2025 Miscellaneous Notes* Telephone Encounter - Gaye Mata RN - 09/27/2024 1:22 PM EDT In error documented in this encounterHolzer Hospital03-18-2025 Telephone encounter Note * Telephone Encounter [...] already called Report to their ER Agreeable [facility]03-18-2025 Miscellaneous Notes* Telephone Encounter - Yanique [...] 09/26/2024 8:29 AM EDT Provided report to [facility]. * Telephone Encounter - Erick Peguero LPN - 09/26/2024 8:18 AM EDT Left message on machine to call the office. * Telephone Encounter - Ramya Crandall, KARIN - 09/26/2024 8:10 AM EDT Pt identified by name and Pt given message below Stated understanding will take pt to [facility] Advised to f/u with endo upon release [...] ( see 09-25-2024) Will document this in [place]/ basics * Telephone Encounter - Erick Peguero [...] in the ER immediately. documented in this encounterHolzer Hospital03-18-2025 Telephone encounter Note * Telephone Encounter - Ayana Zavala APRN.CNP - 09/26/2024 8:29 AM EDT Provided report to [facility]. [facility]03-18-2025 Telephone encounter Note* Telephone Encounter - Erick Peguero LPN - 09/26/2024 8:18 AM EDT Left message on machine to call the office. [facility]03-18-2025 Telephone encounter Note* Telephone Encounter - Ramya Crandall, RN - 09/26/2024 8:10 AM EDT Pt identified by name and Pt given message below Stated understanding will take pt to [facility] Advised to f/u with endo upon release [...] 09-25-2024) Will document this in epic/ basics [facility]03-18-2025 Telephone encounter Note* Telephone Encounter - Erick Peguero LPN - 09/26/2024 7:47 AM EDT Attempted to reach patient at both numbers listed in demo. Left urgent messages on both [facility]03-18-2025 Telephone encounter Note* Telephone Encounter - Ayana Zavala APRN.CNP - 09/26/2024 7:39 AM EDT Received page regarding critical lab result of glucose 614 mg/dL. 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 Please call patient and instruct him to be seen in the ER immediately. [facility]03-17-2025 Instructions* Patient Instructions* Ayana Zavala APRN.CNP [...] me in 4 weeks documented in this encounterHolzer Hospital03-17-2025 NoteHNO ID: [id number] Author: AYANA ZAVALA APRN.CNP Service: ? 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 Per patient, this was done due to [...] by mouth once daily. Intestinal Chayo Modifiers akwhyw-pjrkybkb-sgeyoho (CREON) 24,000-76,000 -120,000 unit cpDR Take 2 capsules by mouth three times daily with meals. and 1 with snacks (8/day) Digestive Enzyme Mixtures lutein-zeaxanthin 25-5 mg cap Take by mouth once daily. Alternative Therapy - Antioxidant Omeprazole Magnesium 20 mg tablet Take 20 mg by mouth. Gastric Acid Secretion Breaker Up Machine Operator - Proton Pump Inhibitors (PPIs) PARoxetine (PAXIL) 40 mg tablet Take 40 mg by mouth every morning. Antidepressant - Selective Serotonin Reuptake Inhibitors (SSRIs) tamsulosin (FLOMAX) 0.4 mg Take 0.4 mg by mouth. Prostatic Hypertrophy Agent - alrzt-6-Wnrlgbizbxra Antagonists Physical Activity: No formal program Diet: CHO Controlled Diet SMBG Frequency of Monitoring: Four times a Day Not connected with pump (more content not included)...[facility] 09-25-2024 History of Present illness Narrative* Ayana Zavala, AMADA.UTILITY SYSTEM OPERATOR - 09/25/2024 2:25 PM EDT Images from the original note were not included. Endocrinology Follow Up History of Present Illness Manolo Roche is a 89 year old male presents today for follow up of DM Type 1. Here with . Patient previously on Omnipod DASH. He was upgraded to Omnipod 5 on 09/04/24. He reports blood sugars have been very elevated recently. He is having polydipsia and polyuria. HisUsentriccom G7 is not connected with his pump currently. He reports remembering to put his sensor code in when he last changed this so is confused why that did not work. 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 Per patient, this was done due to [...] by mouth once daily. Intestinal Chayo Modifiers cowkhq-jyucvsbz-onoyytn (CREON) 24,000-76,000 -120,000 unit cpDR Take 2 capsules by mouth three times daily with meals. and 1 with snacks (8/day) Digestive Enzyme Mixtures lutein-zeaxanthin 25-5 mg cap Take by mouth once daily. Alternative Therapy - Antioxidant Omeprazole Magnesium 20 mg tablet Take 20 mg by mouth. Gastric Acid Secretion Breaker Up Machine Operator - Proton PumpInhibitors (PPIs) PARoxetine (PAXIL) 40 mg tablet Take 40 mg by mouth every morning. Antidepressant - Selective Serotonin Reuptake Inhibitors (SSRIs) tamsulosin (FLOMAX) 0.4 mg Take 0.4 mg by mouth. Prostatic Hypertrophy Agent - jypvx-2-TumerjydsbbmTfgyjxcmlch Physical Activity: No formal program Diet: CHO [...] - 1.30 mg/dL 1.31 High TBH EGFR-AF SAO TOMEAN >=60 mL/min/1.73m 2 >60 TBH EGFR-NON AF SAO TOMEAN >=60 mL/min/1.73m 2 52 Low BUN CREATININE RATIO 17.6 CALCIUM 8.5 - 10.1 mg/dL 9 Resulting Agency TB Specimen Collected: 09/13/24 9:23 AM Performed by: [employer] Last Resulted: 09/13/24 10:54 AM Received From: [facility] Result Received: 09/25/24 2:18 PM Impression/Recommendations IMPRESSION Manolo Roche is a 89 year old here for [...] LDL , TG LIPID PANEL (EXTERNAL) Order: [id number] Component Ref Range & Units Cholesterol 150 - 200 mg/dL 97 Low Triglycerides 27 - 150 mg/dL 38 HDL Cholesterol >39 mg/dL 50 VLDL 0 - 30 mg/dL 8 LDL (calc) <130 mg/dL 39 Cholesterol:HDL Ratio 1.0 - 5.0 1.9 Resulting Agency [facility] Specimen Collected: 01/22/24 6:06 AM Performed by: LEROY Last Resulted: 01/22/24 1:58 PM Received From: [facility] Result Received: 07/06/24 9:37 AM -- This [...] time of the patient encounter Ayana Zavala APRN.UTILITY SYSTEM OPERATOR (Signed electronically to expedite mailing) documented in this encounterHolzer Hospital03-14-2025 Telephone encounter Note * Telephone Encounter [...] once he wakes up to reviewpump issues. [facility]03-14-2025 Miscellaneous Notes* Telephone Encounter - Gaye [...] up to reviewpump issues. documented in this encounterHolzer Hospital03-14-2025 Telephone encounter Note * Telephone Encounter [...] to review pump settings and reinforce education. [facility]03-14-2025 Miscellaneous Notes* Telephone Encounter - Gaye [...] settings and reinforce education. documented in this encounterHolzer Hospital02-24-2025 History of Present illness Narrative* Gaye Mata RN - 09/04/2024 1:00 PM EST DIABETES SELF-MANAGEMENT EDUCATION AND SUPPORT FOLLOW-UP VISIT Type of Diabetes: Type 2 Location: [place] Type of visit: In person individual Types [...] 5 insulin pump. Type of training:upgrade from [employer] If upgrade, patient was previously on the [...] and programmed into pump today. Name: Manolo Roche Date of : 1935 Report Created: 09/04/2024 [...] Name: Insulet Omnipod 5 System Serial Number: [id number] Sync Date: 09/04/24 Device Time Offset (hh:mm): +00:00 Device Name: Insulet Omnipod Dash System Serial Number: [id number] Sync Date: 03/05/22 Device Time Offset (hh:mm): +00:00 Device Name: Insulet Omnipod Dash System Serial Number: [id number] Sync Date: 11/14/21 Device Time Offset (hh:mm): +00:00 Device Name: Insulet Omnipod DASH Morris Serial Number: Insulet Dash Sync Date: 09/19/20 Device Time Offset (hh:mm): +00:00 Device Name: Insulet Omnipod Dash System Serial Number: [id number] Sync Date: 09/19/20 Device Time Offset (hh:mm): [...] weeks. This is a non-billable encounter through [employer] but will be billed to the following [...] for patient selected goal(s) with dietitian and/or adult educator within 2-4 weeks/months via office visit, eLama message, email, or phone call. Contactinformation provided to patient for adult educator. Educator to contact patient in 3 [...] vary based on the plan requirements. Call [phone] to schedule a diabetes education follow up visit. Time Spent (Minutes): 120 This visit note will be communicated to the healthcare provider via access to shared medical record. SIGNATURE: Gaye Mata RN PATIENT NAME: Manolo Roche DATE: September 04, 2024 TIME: 12:45 PM PAGER: documented in this encounterHolzer Hospital02-24-2025 NoteHNO ID: [id number] Author: GAYE MATA RN Service: ? Author Type: Registered Nurse Type: Progress Notes Filed: 09/04/2024 15:22 Note Text: DIABETES SELF-MANAGEMENT EDUCATION AND SUPPORT FOLLOW-UP VISIT Type of Diabetes: Type 2 Location: [place] Type of visit: In person individual Types [...] and programmed into pump today. Name: Manolo Roche Date of : 1935 Report Created: 09/04/2024 [...] Name: Insulet Omnipod? 5 System Serial Number: [id number] Sync Date: 09/04/24 Device Time Offset (hh:mm): +00:00 Device Name: Insulet Omnipod Dash? System Serial Number: [id number] Sync Date: 03/05/22 Device Time Offset (hh:mm): +00:00 Device Name: Insulet Omnipod Dash? System Serial Number: [id number] Sync Date: 11/14/21 Device Time Offset (hh:mm): +00:00 Device Name: Insulet Omnipod DASH? Morris Serial Number: Insulet Dash Sync Date: 09/19/20 Device Time Offset (hh:mm): +00:00 Device Name: Insulet Omnipod Dash? System Serial Number: [id number] Sync Date: 09/19/20 Device Time Offset (hh:mm): [...] to hyperglycemia: Yes Patient (more content not included)...[facility]02-20-2025 Telephone encounter Note* Telephone Encounter - [...] instructions on day of training information to [email or web address] [facility]02-20-2025 Miscellaneous Notes* Telephone Encounter - Gaye [...] instructions on day of training information to [email or web address] documented in this encounterHolzer Hospital02-19-2025 History of Present illness Narrative* Marie Tejeda, - 08/30/2024 1:30 PM EST Images from the original note were not included. Subjective Manolo Roche is a 89 y.o. male who presents [...] assistance of a healthcare professional from the [facility], who has introduced a new monitor [...] has beencommunicating with his healthcare team via eLama and reports no feelings of depression. He [...] care of a diabetic specialist at the [facility] and is managing well without any [...] mild mitral regurgitation, placing him in the [place] [employer] class 1/2. He is currently [...] ran out of his inhaler while in [place] and was unable to refill it at [...] Pancreatic insufficiency (CMS/HCC) 60' documented in this encounterPike County Memorial [id number] Telephone encounter Note* Telephone Encounter - Miguel A Goodwin MA - 08/15/2024 11:55 AM EST Form completed, faxed, confirmation received. Sent for scan. [facility]02-04-2025 Miscellaneous Notes* Telephone Encounter - Miguel A Goodwin MA - 08/15/2024 11:55 AM EST Form completed, faxed, confirmation received. Sent for scan. * Telephone Encounter - Miguel A Goodwin MA - 08/15/2024 10:23 AM EST Received a fax from [employer] for a physician's order. Placed on Ovuline's desk for signature on form and chart notes. documented in this encounterHolzer Hospital02-04-2025 Telephone encounter Note * Telephone Encounter - Miguel A Goodwin MA - 08/15/2024 10:23 AM EST Received a fax from [employer] for a physician's order. Placed on Snehtas desk for signature on form and chart notes. [facility]01-29-2025 Telephone encounter Note* Telephone Encounter - Sheryl Ny MA - 08/09/2024 10:38 AM EST A form has been received from [employer] for LUCA note. Faxed LUCA note 07/06/24 to [phone]. Confirmation received. [facility]01-29-2025 Miscellaneous Notes* Telephone Encounter - Sheryl Ny MA - 08/09/2024 10:38 AM EST A form has been received from [employer] for LUCA note. Faxed LUCA note 07/06/24 to [phone]. Confirmation received. documented in this encounterHolzer Hospital01-14-2025 NoteHNO ID: [id number] Author: GAYE MATA RN Service: ? Author Type: Registered Nurse Type: Progress Notes Filed: 07/25/2024 17:09 Note Text: DIABETES CARE AND EDUCATION VISIT Location: [place] Type of visit: In person individual PATIENT'S [...] below for current pump settings Name: Manolo Roche Date of : 1935 Report Created: 07/25/2024 [...] - - DEVICES Device Name: Insulet Omnipod Dash? System Serial Number: [id number] Sync Date: 07/06/24 Device Time Offset (hh:mm): [...] basics AND daily use and CGM type: BostInno with reader. Patient understand he will need to download CyberDefender G7 eliane on his [employer]hoo 360 Technologyhone SE. Patient unable to recall log in for CyberDefender eliane. Patient downloaded G6 eliane, not G7 eliane. Educator needed to call Cyber[employer]ender for assistance in resetting password as patient unable to get into his email to obtain code to reset. -Medications: reviewed home DM meds, basal insulin, prandial insulin, prebolusing, stacking insulin and how to prevent it, injectable insulin discussed: using [employer] DASH with CyberDefender G7 controller, and insulin pump instruction: pump benefits , pump requirements of user, pump limitations , infusion set rotation, activity mode, and insulin pump terminology: basal, bolus, carb ratio, BG target, ywotgxe-dj-lhnmt/duration, and patient did not bring insulin vials with him so we were unable to start pump today. Patient and leaving for [place] for a month tomorrow and has rescheduled [...] TOPICS: 1. Patient and to return after [place] trip to start Omnipod 5 switch from [...] This visit note tapan (more content not included)...[facility] 07-25-2024 History of Present illness Narrative* Gaye Mata, RN - 07/25/2024 1:04 PM EST DIABETES CARE AND EDUCATION VISIT Location: [place] Type of visit: In person individual PATIENT'S [...] below for current pump settings Name: Manolo Roche Date of : 1935 Report Created: 07/25/2024 [...] - - - - DEVICES Device Name: hearo.fmlet Pacejet LogisticsipAvvenu System Serial Number: [id number] [facility] Date: 07/06/24 Device Time Offset (hh:mm): +00:00 [...] basics & daily use and CGM type: Dexcom G7 with reader. Patient understand he will need to download CyberDefender G7 eliane on his Iphone SE. Patient unable to recall log in for Dexcom eliane. Patient downloaded G6 eliane, not G7 eliane. Educator needed to call [employer] for assistance in resetting password as patient [...] terminology: basal, bolus, carb ratio, BG target, enpszeh-nk-bjpru/duration, and patient did not bring insulin vials with him so we were unable to start pump today. Patient and leaving for [place] for a month tomorrow and has rescheduled [...] TOPICS: 1. Patient and to return after [place] trip to start Omnipod 5 switch from DASH. Patient advised to remember to bring insulin vials, Omnipod 5 pods, phone, controller, and Omnipod ID login and password to next visit. DIABETES CARE AND EDUCATION PLAN: Individual follow-up Patient does not have [employer] Partners[employer]. Email sent prior to today's visit on [...] SIGNATURE: Gaye Mata RN PATIENT NAME: Manolo Roche DATE: July 25, 2024 TIME: 2:52 PM PAGER: n/a documented in this encounterHolzer Hospital01-10-2025 Telephone encounter Note * Telephone Encounter - Gaye Mata RN - 07/21/2024 12:09 PM EST In error - patient does not have MyChart set up, status still PENDING. Patient's sent text with code again to create account [facility]01-10-2025 Miscellaneous Notes* Telephone Encounter - Gaye Mata RN - 07/21/2024 12:09 PM EST In error - patient does not have MyChart set up, status still PENDING. Patient's sent text with code again to create account documented in this encounterHolzer Hospital01-09-2025 History of Present illness Narrative* Yomi Chong NP - 07/20/2024 10:00 AM EST Images from the original note were not included. Manolo Roche is a 89 y.o. male presents with [...] He has a scheduled appointment with his hr operations advisor, Dr. Coppola, in the coming weeks. He [...] He is under the care of an processing spec, Dr. Awa Zavala, at [facility]. He is recovering well from an [...] prostatic hyperplasia) COPD (chronic obstructive pulmonary disease) ([facility]/HCC) Diabetes mellitus ([facility]/HCC) 10/04/2019 Ground glass opacity present on imaging of lung 02/05/2023 Hypertension ([facility]) ICD (implantable cardioverter-defibrillator) in place IPMN (intraductal papillary mucinous neoplasm) 06/23/2018 Added automatically from request for surgery [id number] Left ventricular dysfunction Lumbar spondylosis OA (osteoarthritis) [...] & D PARTIAL HIP ARTHROPLASTY Right 04/12/2023 IN TONSILLECTOMY & ADENOIDECTOMY <AGE 12 SPLENECTOMY, 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 Pain is [...] of his abdominal wall. documented in this encounterPike County Memorial HospitalVdikbunctb12-80-9994 Consult noteNatasha [place] [id number] Cardiology Consult Note Signed Patient: Manolo Roche MR#: [id number] : 1935 Acct:[id number] Age/Sex: 89 / M Adm Date: 5 Loc: 4N Room: 7L4472-6 Type: ADM INOo Attending Dr: Lisa Hidaglo MD Copies to: MD Lisa Varner MD Robert J Vaschak,DO~ Cardiology HPI History of Present Illness Consult Date: 07/17/24 Reason for Consult: Chest pain HPI: Mr. Roche is a 89 year old male with [...] negative unless noted below or in HPI [facility] Medical History Type 1 diabetes mellitus CAD (coronary artery disease) Former smoker BPH (benign prostatic hyperplasia) Urinary frequency Cardiomyopathy wearing external defib Coronary artery disease involving [place] coronary artery of [place] heart withoutangina pectoris GI bleeding Dupuytren's contracture [...] days #30 tabs 05/07/23 [Rx Confirmed 07/16/24] eibwjl-mehbbyxq-lobodtn 24,000-76,000-120,000 unit capsule,delayed rel (Creon) 2cap PO [...] tab PO DAILY 10/26/23 [History Confirmed 07/16/24] vnwywj-pflrxvtw-lbtzxva 24,000-76,000-120,000 unit capsule,delayed rel (Creon) 1cap PO [...] # (Auto) N/A Lymph # (Auto) N/A [place] # (Auto) N/A Eos # (Auto) N/A [...] Code(s): I25.10 - Atherosclerotic heart disease of [place] coronary artery without angina pectoris (4) S/P [...] H/o PUD, BPH, Anxiety, depression. Current smoker. [facility] 04/30/23 - Two-vessel coronary artery disease- 100% prox LAD occlusion; 80% D1; LCx has 50% prox stenosis with 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 Echo 04/28/23 - EF 40-45%, mild LVH, trace MR and TR. [facility] 07/16/22 - Successful PCI ostial/proximal LAD-diagonal branch; true LADLE HANDLER proximal/mid LAD (attempted wiring with balloon). ECHO in January 2024 at [facility]: EF 30-35% ECHO 03/09/2024: ECHO which showed [...] call with any questions. Follow up with [facility] Cardiology as scheduled. Documented By: Chuck Velasco MD 01/03 1637 Signed By: 07/17/24 1652 [facility]01-06-2025 History and physical note Author Indra Guillory [facility] CenterNote Date/TimeJanuary 2024 1:48[place] [address] Hospitalist H&P Signed Patient: Manolo Roche MR#: [id number] : 1935 Acct:[id number] Age/Sex: 89 / M Adm Date: 5 Loc: 3T Room: 2Q1176-2 Type: ADM INOo Attending Dr: Indra Guillory MD Copies to: MD Marie Keller DO~ HPI DATE OF EXAMINATION: 07/17/24 CHIEF COMPLAINT: Chest pain HISTORY OF PRESENT ILLNESS: Mr. Roche is an 89-year-old male with PMH of [...] that which is noted above in HPI [facility] Medical History Type 1 diabetes mellitus CAD (coronary artery disease) Former smoker BPH (benign prostatic hyperplasia) Urinary frequency Cardiomyopathy wearing external defib Coronary artery disease involving [place] coronary artery of [place] heart withoutangina pectoris GI bleeding Dupuytren's contracture [...] days #30 tabs 05/07/23 [Rx Confirmed 07/16/24] cktylt-decofjsx-bjsbnya 24,000-76,000-120,000 unit capsule,delayed rel (Creon) 2cap PO [...] tab PO DAILY 10/26/23 [History Confirmed 07/16/24] wizmux-atgnlojm-ainfngy 24,000-76,000-120,000 unit capsule,delayed rel (Creon) 1cap PO [...] % (Auto) 18.9 % (.) 07/16/24 12:30 [place] % (Auto) 12.8 % (.) 07/16/24 12:30 Eos % (Auto) 2.7 % (.) 07/16/24 12:30 Baso % (Auto) 0.8 % (.) 07/16/24 12:30 Nucleat RBC Rel Count 0.2 /100 WBC (0-0.5) 07/16/24 12:30 Neut # (Auto) 4.7 x10E3/uL (1.8-7.7) 07/16/24 12:30 Lymph # (Auto) 1.4 x10E3/uL (1.00-4.8) 07/16/24 12:30 [place] # (Auto) 0.9 x10E3/uL (0.0-0.8) H 07/16/24 [...] defibrillator) procedure: (6) Ischemic cardiomyopathy: Plan Mr. Roche is an 89-year-old male with PMH of [...] 2 Documented By: Indra Guillory MD 5 [id number] Signed By: <Electronically signed by Indra Guillory MD> 07/17/24 0146 [facility] Work Phone: 1(227) 676-664101-06-2025 History and physical [place] [id number] Hospitalist H&P Signed Patient: Manolo Roche MR#: [id number] : 1935 Acct:[id number] Age/Sex: 89 / M Adm Date: 5 Loc: 3T Room: 2T1404-3 Type: ADM INOo Attending Dr: Indra Guillory MD Copies to: MD Marie Keller DO~ HPI DATE OF EXAMINATION: 07/17/24 CHIEF COMPLAINT: Chest pain HISTORY OF PRESENT ILLNESS: Mr. Roche is an 89-year-old male with PMH of [...] that which is noted above in HPI [facility] Medical History Type 1 diabetes mellitus CAD (coronary artery disease) Former smoker BPH (benign prostatic hyperplasia) Urinary frequency Cardiomyopathy wearing external defib Coronary artery disease involving [place] coronary artery of [place] heart withoutangina pectoris GI bleeding Dupuytren's contracture [...] days #30 tabs 05/07/23 [Rx Confirmed 07/16/24] zcmbyp-bkdqszaw-vetbooa 24,000-76,000-120,000 unit capsule,delayed rel (Creon) 2cap PO [...] tab PO DAILY 10/26/23 [History Confirmed 07/16/24] eofylm-jgrqzeoy-laqahul 24,000-76,000-120,000 unit capsule,delayed rel (Creon) 1cap PO [...] % (Auto) 18.9 % (.) 07/16/24 12:30 [place] % (Auto) 12.8 % (.) 07/16/24 12:30 Eos % (Auto) 2.7 % (.) 07/16/24 12:30 Baso % (Auto) 0.8 % (.) 07/16/24 12:30 Nucleat RBC Rel Count 0.2 /100 WBC (0-0.5) 07/16/24 12:30 Neut # (Auto) 4.7 x10E3/uL (1.8-7.7) 07/16/24 12:30 Lymph # (Auto) 1.4 x10E3/uL (1.00-4.8) 07/16/24 12:30 [place] # (Auto) 0.9 x10E3/uL (0.0-0.8) H 07/16/24 [...] defibrillator) procedure: (6) Ischemic cardiomyopathy: Plan Mr. Roche is an 89-year-old male with PMH of [...] 2 Documented By: Indra Guillory MD 5 [id number] Signed By: 07/17/24 0148 [facility]01-05-2025 Evaluation note* Diagnosis Onset Date Resolution Status Admit Date CAD (coronary artery disease) acuteJanuary 2024 6:08pmIschemic cardiomyopathyacuteJanuary 2024 6:08pmS/P ICD (internal cardiac defibrillator) procedureacuteJanuary 2024 6:08pmType 1 diabetes mellitusacuteJuluary 2024 6:08pmAcute exacerbation of CHF (congestive heart failure)resolvedJuluary 2024 6:08pmCOPD with acute exacerbationresolvedJuluary 2024 6:08pmPleuritic chest painresolvedJuluary 2024 6:08pmIschemic cardiomyopathyacuteFebruary 2024 9:56amType 1 diabetes mellitusacuteFebruary 2024 9:56amAcute GI bleedingresolved August 31, 2024 9:56amCoronary artery disease involving [place] coronary artery of [place] heart wiinactiveFebruary 2024 9:56amHypertensioninactive August 31, 2024 9:56amS/P PTCA (percutaneous transluminal coronary angioplasty)inactiveFebruary 2024 9:56amIschemic cardiomyopathyacuteApril 2024 9:10amType 1 diabetes mellitusacuteApril 2024 9:10amAcute GI bleedingresolvedApril 2024 9:10amCoronary artery disease involving [place] coronary artery of [place] heart wiinactiveApril 2024 9:10amHypertension inactiveApril 2024 9:10amS/P PTCA (percutaneous transluminal coronary angioplasty)inactiveApril 2024 9:10am [facility] Work Phone: 1(297) 852-679001-05-2025 Radiology Diagnostic study [facility] [place] [address] [place] [address] CT Scan Report Signed Patient: Manolo Roche MR#: [id number] : 1935 Acct:[id number] Age/Sex: 89 / M ADM Date: Loc: ER Room: Type: [facility] ER Attending Dr: Copies to: Bertin Smith DO~ Ordering Provider: Bertin Smith DO Date of Service: 07/16/24 CT/CT angio [...] suspicious for congestive heartfailure. Impression dictated by: Sergei Valentin M.D.07/16/2024 4:48 PM Dictation Location: [place] [address] Transcribed By: [facility] 07/16/24 1648 Dictated By: Sergei Valentin II, MD 07/16/24 1636 Signed By: 07/16/24 1648 [facility] Work Phone: [phone]) [phone] Telephone encounter Note* Telephone Encounter - Gaye Mata RN - 07/13/2024 4:14 PM EST In error [facility]01-02-2025 Miscellaneous Notes* Telephone Encounter - Gaye Mata RN - 07/13/2024 4:14 PM EST In error documented in this encounterHolzer Hospital01-02-2025 Telephone encounter Note * Telephone Encounter - Gaye Mata RN - 07/13/2024 4:09 PM EST Called and spoke with patient and to schedule Omnipod DASH to Omnipod 5 pump upgrade. Patient states he has the new pods and is wearing the Dexcom G6 CGM. Patient was scheduled for carb counting/insulin pump training for 07/25/24 at 1-3 pm at [facility]. Location. Patient's Mychart status is PENDING, invite resent via text and to create account. Email sent to [employer] with clinic address, time, date, and what to bring day of training. [facility]01-02-2025 Miscellaneous Notes* Telephone Encounter - Gaye Mata RN - 07/13/2024 4:09 PM EST Called and spoke with patient and to schedule Omnipod DASH to Omnipod 5 pump upgrade. Patient states he has the new pods and is wearing the Dexcom G6 CGM. Patient was scheduled for carb counting/insulin pump training for 07/25/24 at 1-3 pm at [facility]. Location. Patient's Mychart status is PENDING, invite resent via text and to create account. Email sent to [employer] with clinic address, time, date, and what to bring day of training. documented in this encounterHolzer Hospital01-02-2025 History of Present illness Narrative* Stephanei Sheridan DO - 07/13/2024 10:45 AM EST Images from the original note were not included. Manolo Roche is a 89 y.o. male presents for [...] and see him PRN documented in this encounterPike County Memorial HospitalBdpvrpyfxz52-18-2039 Miscellaneous Notes* Telephone Encounter - Ayana Zavala [...] training. I reached out to our lead assistant manager and am waiting to hear back, but hopefully can get him set up for training in the next two weeks. documented in this encounterHolzer Hospital12-26-2024 Telephone encounter Note * Telephone Encounter [...] training. I reached out to our lead assistant manager and am waiting to hear back, but hopefully can get him set up for training in the next two weeks. [facility]12-26-2024 Note* Addendum Note - Ayana Zavala APRN.CNP - 07/06/2024 1:16 PM ESTAddended by: AYANA ZAVALA on: 07/06/2024 01:16 PM Modules accepted: Orders [facility]12-26-2024 Miscellaneous Notes* Addendum Note - Ayana Zavala APRN.CNP - 07/06/2024 1:16 PM ESTAddended by: AYANA ZAVALA on: 07/06/2024 01:16 PM Modules accepted: Orders documented in this encounterHolzer Hospital12-26-2024 Instructions* Patient Instructions* Ayana Zavala APRN.CNP [...] 1 ounce protein) 150 calories or less Leupp (1 slice bread, 1-2 slices turkey or [...] high in calories) 1 small granola bar (Christian Oats makes smaller granola bar or Special K bar), 10 nuts (try using the 100 calorie snack nut packs to limit the portion) Protein Cereal Bar (such as a [employer] Protein Bar) Low Calorie Protein Shake (EAS Advantage Carb Control), 1 small apple, orange, peach, pear (one that you can tuck in your palm) Korean Yogurt (has 20 grams of carb, 2 ounces of lean protein) or 6 ounce light yogurt 1/3 cup hummus with celery sticks and baby carrots Low Carb Light Wrap (1-2 slices lean meat), lettuce, tomato, 1 tsp light Bhutanese dressing (There are many options which are both high in fiber and low in calories--100 calories or less per wrap) documented in this encounterHolzer Hospital12-26-2024 History of Present illness Narrative* Ayana Zavala APRN.KALANI - 07/06/2024 11:00 AM EST Images from the original note were not included. Endocrinology Initial Diabetes Assessment Manolo Roche is here for a consultation regarding: DM Type 2 My final recommendations will be communicated back to the requesting physician by way of shared Medical record or letter to requesting physician via US mail. PCP is DO Marie Rodriguez ([place]) [address] [place] [address] History of Present Illness Manolo Roche is a 89 year old male presents today for evaluation of DM Type 1. Here with and son. 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 Per patient, this was done due to [...] (PROBIOTIC-10 ORAL) Take by mouth once daily. vauznq-rfpnwlfs-wfjxptw (CREON) 24,000-76,000 -120,000 unit cpDR Take 2 capsules by mouth three times daily with meals. and 1 with snacks (8/day) Digestive Enzyme Mixtures lutein-zeaxanthin 25-5 mg cap Take by mouth once daily. Alternative Therapy - Antioxidant Omeprazole Magnesium 20 mg tablet Take 20 mg by mouth. Gastric Acid Secretion Breaker Up Machine Operator - Proton PumpInhibitors (PPIs) PARoxetine (PAXIL) 40 mg tablet Take 40 mg by mouth every morning. Antidepressant - Selective Serotonin Reuptake Inhibitors (SSRIs) tamsulosin (FLOMAX) 0.4 mg Take 0.4 mg by mouth. Prostatic Hypertrophy Agent - qrwtl-6-BjwnqovidmvkXzichmcuudd Physical Activity: No formal program Diet: CHO Controlled Diet SMBG Frequency of Monitoring: Four times a Day Summary of Personal CGM Findings: Dates worn: 06/22/24-07/05/24 CGM Type: Usentriccom 1- CGM recording is adequate for interpretation. [...] ains abnormal data COMPREHENSIVE METABOLIC PANEL Order: [id number] Component Ref Range & Units 5 mo [...] that does not use a race coefficient. [facility] MAIN LAB Specimen Collected: 01/24/24 6:05 AM Performed by: liveBooks Last Resulted: 01/24/24 7:22 AM Received From: [facility] Result Received: 07/06/24 9:37 AM Impression/Recommendations IMPRESSION Manolo Roche is a 89 year old here for [...] LDL , TG LIPID PANEL (EXTERNAL) Order: [id number] Component Ref Range & Units 5 mo ago Cholesterol 150 - 200 mg/dL 97 Low Triglycerides 27 - 150 mg/dL 38 HDL Cholesterol >39 mg/dL 50 VLDL 0 - 30 mg/dL 8 LDL (calc) <130 mg/dL 39 Cholesterol:HDL Ratio 1.0 - 5.0 1.9 Resulting Agency [facility] Specimen Collected: 01/22/24 6:06 AM Performed by: KEZIAVantrix Last Resulted: 01/22/24 1:58 PM Received From: [facility] Result Received: 07/06/24 9:37 AM -- This [...] which included preparing to see the patient, hcok-zm-ioea patient care, completing clinical documentation, counseling and educating the patient/family/caregiver, ordering medications, tests, or procedures, and communicating results to the mary ent/family/caregiver. Ayana Zavala APRN.KALANI (Signed electronically to expedite mailing) documented in this encounterHolzer Hospital12-26-2024 NoteHNO ID: [id number] Author: AYANA ZAVALA APRN.KALANI Service: ? Author Type: Nurse Practitioner Type: Progress Notes Filed: 07/06/2024 12:36 Note Text: Endocrinology Initial Diabetes Assessment Manolo Roche is here for a consultation regarding: DM Type 2 My final recommendations will be communicated back to the requesting physician by way of shared Medical record or letter to requesting physician via US mail. PCP is DO Marie Rodriguez ([facility]) [address] [place] [address] History of Present Illness Manolo Roche is a 89 year old male presents today for evaluation of DM Type 1. Here with and son. 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 Per patient, this was done due to [...] (PROBIOTIC-10 ORAL) Take by mouth once daily. lvfjqd-dwqpyril-zzsrwdu (CREON) 24,000-76,000 -120,000 unit cpDR Take 2 capsules by mouth three times daily with meals. and 1 with snacks (8/day) Digestive Enzyme Mixtures lutein-zeaxanthin 25-5 mg cap Take by mouth once daily. Alternative Therapy - Antioxidant Omeprazole Magnesium 20 mg tablet Take 20 mg by mouth. Gastric Acid Secretion Breaker Up Machine Operator - Proton Pump Inhibitors (PPIs) PARoxetine (PAXIL) 40 mg tablet Take 40 mg by mouth every morning. Antidepressant - Selective Serotonin Reuptake Inhibitors (SSRIs) tamsulosin (FLOMAX) 0.4 mg Take 0.4 mg by mouth. Prostatic Hypertrophy Agent - wcztb-4-Frzwkkqerlzs Antagonists Physical Activity: No formal program Diet: [...] meals *Nocturnal hypoglycemia n (more content not included)...[facility]12-23-2024 History of Present illness Narrative* Beto [...] Sheridan in 1-2 weeks. documented in this encounterPike County Memorial HospitalCarhskmdbu11-72-2014 History of Present illness Narrative* Marie Tejeda DO - 06/19/2024 3:00 PM EST Images from the original note were not included. Manolo Roche is a 89 y.o. male presents with [...] 06/23/2018 Added automatically from request for surgery [id number] Left ventricular dysfunction Lumbar spondylosis OA (osteoarthritis) Pancreatitis Hospitalized Rotator cuff tendonitis SURGICAL HISTORY: Past Surgical History: Procedure Laterality Date APPENDECTOMY 1948 CERVICAL DISCECTOMY [address] ANGIOGRAM HEART CORONARY 01/21/2024 CT ANGIOGRAM TAVR 01/21/2024 FINE NEEDLE ASPIRATION 04/2018 HEART CATH 04/2023 heart cath HIP SURGERY Right 04/2023 right hip surgery OTHER SURGICAL HISTORY 04/2024 ICD placement PARTIAL HIP ARTHROPLASTY Right 04/12/2023 IN TONSILLECTOMY & ADENOIDECTOMY <AGE 14 SPLENECTOMY, TOTAL [...] Depression - At risk (01/21/2024) Received from [facility] PHQ-2 Total Score: 3 FAMILY HISTORY: Family [...] mg, 2 times daily before meals pancrelipase, Xmx-Xbjj-Ebet, (Creon) 53913-20511 units capsule TAKE 2 CAPSULES BY MOUTH [...] . Reviewed recent hospitalization documented in this encounterPike County Memorial [id number] Evaluation note* Diagnosis Onset Date Resolution Status Admit Date Iron deficiency acuteDecember 2023 4:58pmIschemic cardiomyopathyacuteDecember 2023 4:58pmS/P ICD (internal cardiac defibrillator) procedureacuteDecember 2023 4:58pmSinus bradycardiaacuteDecember 2023 4:58pmAbdominal abscessresolved June 16, 2024 4:58pmAbdominal wall abscessresolvedDecember 2023 4:58pm Type 1 diabetes mellitusacuteDecember 2023 6:26pmAbdominal abscessresolved June 19, 2024 6:26pmAbdominal wall abscessresolvedDecember 2023 6:26pm CAD (coronary artery disease)acuteJanuary 2024 6:08pmIschemic cardiomyopathyacuteJanuary 2024 6:08pmS/P ICD (internal cardiac defibrillator) procedureacuteJanuary 2024 6:08pmType 1 diabetes mellitus acuteJanuary 2024 6:08pmAcute exacerbation of CHF (congestive heart failure)resolvedJuluary 2024 6:08pmCOPD with acute exacerbationresolved July 16, 2024 6:08pmPleuritic chest painresolvedJanuary 2024 6:08pm [facility] Work Phone: 1(432) 945-855312-06-2024 Evaluation note* Diagnosis Onset Date Resolution Status Admit Date Iron deficiency acuteDecember 2023 4:58pmIschemic cardiomyopathyacuteDecember 2023 4:58pmS/P ICD (internal cardiac defibrillator) procedureacuteDecember 2023 4:58pmSinus bradycardiaacuteDecember 2023 4:58pmAbdominal abscessresolved June 16, 2024 4:58pmAbdominal wall abscessresolvedDecember 2023 4:58pm Type 1 diabetes mellitusacuteDecember 2023 6:26pmAbdominal abscessresolved June 19, 2024 6:26pmAbdominal wall abscessresolvedDecember 2023 6:26pm CAD (coronary artery disease)acuteJanuary 2024 6:08pmIschemic cardiomyopathyacuteJanuary 2024 6:08pmS/P ICD (internal cardiac defibrillator) procedureacuteJanuary 2024 6:08pmType 1 diabetes mellitus acuteJanuary 2024 6:08pmAcute exacerbation of CHF (congestive heart failure)resolvedJanuary 2024 6:08pmCOPD with acute exacerbationresolved July 16, 2024 6:08pmPleuritic chest painresolvedJanuary 2024 6:08pm Ischemic cardiomyopathyacuteFebruary 2024 9:56amType 1 diabetes mellitus acuteFebruary 2024 9:56amAcute GI bleedingresolvedFebruary 2024 9:56amCoronary artery disease involving [place] coronary artery of [place] heart wiinactiveFebruary 2024 9:56amHypertensioninactiveFebruary 2024 9:56amS/P PTCA (percutaneous transluminal coronary angioplasty)inactiveFebruary 2024 9:56am [facility] Work Phone: 1(493) 347-656211-19-2024 History of Present illness Narrative* Marie Tejeda, - 05/30/2024 2:00 PM EST Images from the original note were not included. Manolo Roche is a 89 y.o. male presents with chief complaint of Hospital Follow-up HPI: HPI History of Present Illness The patient presents for evaluation of multiple medical concerns. He is managing his insulin pump independently, with an upcoming appointment with his processing spec on 07/06/2024. His blood sugar levels have [...] Flowsheet Row Patient Outreach from 05/29/2024 in [facility] with Alejandrina Santamaria LPN Hospital Information ED, Hospital or Usp Facility Discharge? Hospital Patient has been contacted within two business days of discharge Yes Diagnosis ICD placement Discharge Date 05/25/24 Discharged To: Home Setting Discharge Hospital [facility] Engagement Call Start Time 1019 Admission Date [...] prostatic hyperplasia) COPD (chronic obstructive pulmonary disease) ([facility]) Diabetes mellitus ([facility]) 10/04/2019 Ground glass opacity present on imaging of lung 02/05/2023 Hypertension (CMS/HCC) ICD (implantable cardioverter-defibrillator) in place IPMN (intraductal papillary mucinous neoplasm) 06/23/2018 Added automatically from request for surgery [id number] Left ventricular dysfunction Lumbar spondylosis OA (osteoarthritis) Pancreatitis Hospitalized Rotator cuff tendonitis SURGICAL HISTORY: Past Surgical History: Procedure Laterality Date APPENDECTOMY 1949 CERVICAL DISCECTOMY [address] ANGIOGRAM HEART CORONARY 01/21/2024 CT ANGIOGRAM TAVR 01/21/2024 FINE NEEDLE ASPIRATION 04/2018 HEART CATH 04/2023 heart cath HIP SURGERY Right 04/2023 right hip surgery PARTIAL HIP ARTHROPLASTY Right 04/12/2023 IN TONSILLECTOMY & ADENOIDECTOMY <AGE 14 SPLENECTOMY, 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 [facility] [place] VASECTOMY 1989 SOCIAL HISTORY: [...] Depression - At risk (01/21/2024) Received from [facility] PHQ-2 Total Score: 3 FAMILY HISTORY: Family [...] mg, 2 times daily before meals pancrelipase, Dcp-Rtid-Dcyo, (Creon) 03388-32196 units capsule TAKE 2 CAPSULES BY MOUTH [...] next month until his appointment with the processing spec on July 06, 2024. Endo apt at [...] assistance of MARYANN Hedrick. documented in this encounterPike County Memorial [id number] [place] [address] Discharge Summary Signed Patient: Manolo Roche MR#: [id number] : 1935 Acct:[id number] Age/Sex: 89 / M Adm Date: 4 Loc: Room: [address] [place] [address]: Abdulaziz Root MD Copies to: MD Marie Varner DO Soufian Almahameed, M.D.~ Providers Date of Discharge: 05/25/24 Discharging Provider: Chuck Velasco Primary Care Provider: Marie Tejeda Discharge Diagnosis (1) S/P ICD (internal cardiac defibrillator) procedure: (2) Ischemic cardiomyopathy: (3) Sinus bradycardia: (4) Non-ST elevation myocardial infarction (NSTEMI), subendocardial infarction, subsequent episode of care: Final Diagnosis Final Discharge Diagnosis: Ischemic cardiomyopathy status post ICD placement Summary Hospital Course Hospital course: Mr Roche is an 88 year old male with past medical history significant for CAD s/p PCI to LAD and Diag 1, DM s/p pancreatectomy, BPH who initially presented [facility] in Apr 2023 following a [...] for discharge and will follow-up with his hr operations advisor as well as electrophysiology in the pacemaker [...] on June 01, 2024 at 1:00pm at [facility] - Device check: Will be [...] Sodium 138, Potassium 4.0, Chloride 103, Carbon Tslfaqn57.5, Anion Gap 11.5, BUN 19, Creatinine 0.75, [...] 05/12 11/02 1135 Signed By: 05/25/24 1139 [facility]11-14-2024 [place] [address] Cardiology Progress Note Signed Patient: Manolo Roche MR#: [id number] : 1935 Acct:[id number] Age/Sex: 89 / M Adm Date: 4 Loc: Room: [address] [place] [address] Type: ADM IN Attending Dr: Abdulaziz Root [...] 05/12 11/02 1035 Signed By: 05/25/24 1041 [facility]11-13-2024 Discharge summary Author Chuck Velasco [facility] CenterNote Date/TimeNovember 2023 11:39am [place] [address] Discharge Summary Signed Patient: Manolo Roche MR#: [id number] : 1935 Acct:[id number] Age/Sex: 89 / M Adm Date: 4 Loc: Room: [address] [place] [address]: Abdulaziz Root MD Copies to: MD Marie Varner,DO Abdulaziz Root M.D.~ Providers Date of Discharge: 05/25/24 Discharging Provider: Chuck Velasco Primary Care Provider: Marie Tejeda Discharge Diagnosis (1) S/P ICD (internal cardiac defibrillator) procedure: (2) Ischemic cardiomyopathy: (3) Sinus bradycardia: (4) Non-ST elevation myocardial infarction (NSTEMI), subendocardial infarction, subsequent episode of care: Final Diagnosis Final Discharge Diagnosis: Ischemic cardiomyopathy status post ICD placement Summary Hospital Course Hospital course: Mr Roche is an 88 year old male with past medical history significant for CAD s/p PCI to LAD and Diag 1, DM s/p pancreatectomy, BPH who initially presented [facility] in Apr 2023 following a [...] for discharge and will follow-up with his hr operations advisor as well as electrophysiology in the pacemaker [...] on June 01, 2024 at 1:00pm at [facility] - Device check: Will be [...] Sodium 138, Potassium 4.0, Chloride 103, Carbon Enkihgj61.5, Anion Gap 11.5, BUN 19, Creatinine 0.75, [...] Comment Documented By: Chuck Velasco MD 05/12 Signed By: <Electronically signed by Chuck Velasco MD> 05/25/24 1133 [facility] Work Phone: 1(307) 207-788910-16-2024 Evaluation note* [facility] 3:55pm# CAD s/p PCI in Jul 2023. 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 Current smoker. [facility] 04/30/23 - Two-vessel coronary artery disease- 100% prox LAD occlusion; 80% D1; LCx has 50% prox stenosis with 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 Echo 04/28/23 - EF 40-45%, mild LVH, trace MR and TR. [facility] 07/16/22 - Successful PCI ostial/proximal LAD-diagonal branch; true LADLE HANDLER proximal/mid LAD (attempted wiring with balloon). EKG 09/07/23 - sinus peace 56 bpm, anterolateral TWI. EKG 09/08/23 - sinus peace 58 bpm, anterolateral and inferior TWI. ECHO in January 2024 at [facility]: EF 30-35% ECHO 03/09/2024: ECHO which showed [...] up in 2 months in HF clinic. [facility] Work Phone: 1(759) 200-468610-16-2024 Evaluation note* Author Anat Perez [facility] 2023 2:55pm# CAD s/p PCI in Jul 2023. 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 Current smoker. [facility] 04/30/23 - Two-vessel coronary artery disease- 100% prox LAD occlusion; 80% D1; LCx has 50% prox stenosis with 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 Echo 04/28/23 - EF 40-45%, mild LVH, trace MR and TR. [facility] 07/16/22 - Successful PCI ostial/proximal LAD-diagonal branch; true LADLE HANDLER proximal/mid LAD (attempted wiring with balloon). EKG 09/07/23 - sinus peace 56 bpm, anterolateral TWI. EKG 09/08/23 - sinus peace 58 bpm, anterolateral and inferior TWI. ECHO in January 2024 at [facility]: EF 30-35% ECHO 03/09/2024: ECHO which showed [...] up in 2 months in HF clinic. [facility] Work Phone: [phone]) 554-858910-16-2024 Chief complaint+Reason for visit Narrative * Chief [...] Type 1 diabetes mellitus July 16 6:08pm [facility] Work Phone: 1(593) 284-725510-16-2024 Chief complaint+Reason for visit Narrative * Chief [...] Type 1 diabetes mellitus July 16 6:08pm [facility] Work Phone: 1(829) 621-702810-14-2024 History of Present illness Narrative* Agnes Moreno, JACINTA - 04/24/2024 4:00 PM EDT Images from the original note were not included. Manolo Roche is a 89 y.o. male presents with [...] 06/23/2018 Added automatically from request for surgery [id number] Left ventricular dysfunction Lumbar spondylosis OA (osteoarthritis) Pancreatitis Hospitalized Rotator cuff tendonitis SURGICAL HISTORY: Past Surgical History: Procedure Laterality Date APPENDECTOMY 1949 CERVICAL DISCECTOMY [address] ANGIOGRAM HEART CORONARY 01/21/2024 CT ANGIOGRAM TAVR 01/21/2024 FINE NEEDLE ASPIRATION 04/2018 HEART CATH 04/2023 heart cath HIP SURGERY Right 04/2023 right hip surgery PARTIAL HIP ARTHROPLASTY Right 04/12/2023 IN TONSILLECTOMY & ADENOIDECTOMY <AGE 14 SPLENECTOMY, TOTAL [...] Depression - At risk (01/21/2024) Received from [facility] PHQ-2 Total Score: 3 FAMILY HISTORY: Family [...] mg, 2 times daily before meals pancrelipase, Vlv-Lynf-Mrqx, (Creon) 32323-13751 units capsule TAKE 2 CAPSULES BY MOUTH [...] the original note were not included. Manolo Roche is a 89 y.o. 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 He [...] 06/23/2018 Added automatically from request for surgery [id number] Left ventricular dysfunction Lumbar spondylosis OA (osteoarthritis) Pancreatitis Hospitalized Rotator cuff tendonitis SURGICAL HISTORY: Past Surgical History: Procedure Laterality Date APPENDECTOMY 194 CERVICAL DISCECTOMY [address] ANGIOGRAM HEART CORONARY 01/21/2024 CT ANGIOGRAM TAVR 01/21/2024 FINE NEEDLE ASPIRATION 04/2018 HEART CATH 04/2023 heart cath HIP SURGERY Right 04/2023 right hip surgery PARTIAL HIP ARTHROPLASTY Right 04/12/2023 IN TONSILLECTOMY & ADENOIDECTOMY <AGE 14 SPLENECTOMY, 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 STOMACH SURGERY 12/2021 Stomach Ulcer Surgery - [facility] [place] VASECTOMY 1989 SOCIAL HISTORY: Social History [...] Depression - At risk (01/21/2024) Received from [facility] PHQ-2 Total Score: 3 FAMILY HISTORY: Family [...] mg, 2 times daily before meals pancrelipase, Aoy-Knno-Yxlb, (Creon) 93394-70793 units capsule TAKE 2 CAPSULES BY MOUTH [...] it has not been scheduled yet. Dr. Tejeda wrote a letter to the GI office [...] blood sugar levels. A referral to an processing spec, Dr. Liyah Yeung, has been made to [...] for follow-up. Diagnosis Plan 1. Pancreatic insufficiency ([facility]/H[facility]) Ambulatory referral to Endocrinology 2. Coronary arteriosclerosis ([facility]) metoprolol succinate XL (Toprol-XL) 25 MG 24 hr tablet 3. 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([facility]) Ambulatory referral to Endocrinology 4. 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 I am following Dr Tejeda's established plan of care for these issues. Dr Tejeda is in the office suite today and is supervising patient care. documented in this encounterPike County Memorial [id number] History of Present illness Narrative* Marie Tejeda, - 04/17/2024 10:30 AM EDT Images from the original note were not included. Manolo Roche is a 89 y.o. male presents with [...] was black, leading to his transfer to [facility]. He had an ulnar fracture and [...] CURRENT PCP/CARE TEAM: Patient Care Team: Marie Tejeda DO as PCP - General (Internal Medicine) Marie Tejeda DO as PCP - ACO Luna Beard MD as Referring Physician (Gastroenterology) Andrey Grullon MD as Referring Physician (Neurology) Dr Anat Ramirez Cardiology Dr Gómez Endocrine HISTORIES: PAST MEDICAL HISTORY: Past Medical History: Diagnosis Date Anastomotic ulcer Anxiety BPH (benign prostatic hyperplasia) COPD (chronic obstructive pulmonary disease) ([facility]) Diabetes mellitus (CMS/HCC) 10/04/2019 Ground glass opacity present on imaging of lung 02/05/2023 Hypertension (CMS/HCC) IPMN (intraductal papillary mucinous neoplasm) 06/23/2018 Added automatically from request for surgery [id number] Left ventricular dysfunction Lumbar spondylosis OA (osteoarthritis) Pancreatitis Hospitalized Rotator cuff tendonitis SURGICAL HISTORY: Past Surgical History: Procedure Laterality Date APPENDECTOMY 194 CERVICAL DISCECTOMY [address] ANGIOGRAM HEART CORONARY 01/21/2024 CT ANGIOGRAM TAVR 01/21/2024 FINE NEEDLE ASPIRATION 04/2018 HEART CATH 04/2023 heart cath HIP SURGERY Right 04/2023 right hip surgery PARTIAL HIP ARTHROPLASTY Right 04/12/2023 IN TONSILLECTOMY & ADENOIDECTOMY <AGE 14 SPLENECTOMY, 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 STOMACH SURGERY 12/2021 Stomach Ulcer Surgery - [facility] [place] VASECTOMY 1989 SOCIAL HISTORY: Social History [...] Not at risk (04/05/2024) Received from [facility] PHQ-2 Patient Health Questionnaire-2 Score: 0 Recent Concern: Depression - At risk (01/21/2024) Received from [facility] PHQ-2 Total Score: 3 FAMILY HISTORY: [...] Sublingual NovoLOG FLEXPEN 100 UNIT/ML pen pancrelipase, Trt-Sent-Dqdz, (Creon) 78191-77975 units capsule TAKE 2 CAPSULES BY MOUTH [...] mellitus with hyperosmolarity without nonketotic hyperglycemic hyperosmolar coma([facility]) POCT glycosylated hemoglobin (Hb A1C) docked device 3. Generalized anxiety disorder ([facility]) PARoxetine (Paxil) 40 MG tablet 4. Need for immunization against influenza Flu vaccine, trivalent, adjuvanted, preservative free 5. Acquired total absence of pancreas 6. Benign prostatic hyperplasia with urinary frequency 7. 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 ([facility]) 8. 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 H pylori ulcer see note to GI 10. 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 I recommended referral to specialty clinic for DM/pancreatectomy 11. Insulin pump in place 12. Pancreatic insufficiency ([facility]) 13. Duodenal ulcer see letter to GI cont PPI stop carafate - out of concern for binding meds 14. Medicare annual wellness visit, subsequent 15. ACP (advance care planning) 16. Bradycardia on low dose BB no changes for now 17. Orthostatic hypotension all BP meds stopped except for BB 18. Acute on chronic systolic congestive heart failure ([facility]) NYHA 3 Stgae D educated on importance [...] A note will be sent to the pattern grader supervisor to discuss the possibility of using a [...] Wednesday for follow-up. 90+' documented in this encounterPike County Memorial [id number] Note Attestation signed by Patrick Beard MD at 04/14/2024 12:12 PM I saw and evaluated the patient. I reviewed the resident's/fellow's note and agree with the findings and plan documents in the resident's/fellow's note [facility] Gastroenterology New Patient Visit - History [...] duodenal jejunostomy and splenectomy in 2019 at [facility] in [place]. Patient was referred for the gastroenterology clinic to be established as a new patient regarding his history of peptic ulcer disease with a recent EGD finding in [facility] in February 04, 2024 after he was [...] follow-up scheduled. PREVIOUS LABS/IMAGING/ENDOSCOPY: EGD 02/05/2024 in [facility]: Showing gastritis with anastomosis ulcer with visible [...] Type 1 diabetes mellitus (CMS/HCC) Diabetes mellitus ([facility]) Acute GI bleeding Anemia of chronic disease Postoperative anemia Arthralgia of hip ASCVD (arteriosclerotic cardiovascular disease) Barretts esophagus Benign prostatic hyperplasia BMI 20.0-20.9, adult Closed intertrochanteric fracture of right hip ([facility]) Closed nondisplaced fracture of fourth cervical vertebra with routine healing Fracture of C5 vertebra, closed ([facility]) Current moderate episode of major 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 (CMS/HCC) Dyslipidemia E coli infection Elevated d-dimer Essential hypertension Fracture of cervical spinous process (CMS/HCC) Fractured hip ([facility]) Hip fracture due to osteoporosis, sequela Anxiety and depression Generalized anxiety disorder Gram negative sepsis ([facility]/HCC) Duodenal ulcer H pylori ulcer Stomach ulcer H/O splenectomy Helicobacter pylori (H. 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 ([facility]HCC) Hypomagnesemia Impaired mobility and activities of daily living Insulin pump in place IPMN (intraductal papillary mucinous neoplasm) Iron deficiency Ischemic myocardial dysfunction Left carpal tunnel syndrome Left radial fracture Leukemoid reaction Melena Mild left ventricular systolic dysfunction (LVSD) Mixed hyperlipidemia Need for immunization against influenza Non-ST elevation (NSTEMI) myocardial infarction ([facility]HCC) Nonsustained monomorphic ventricular tachycardia ([facility]) Osteoporosis Perforated viscus Pneumonia of both lungs due to infectious organism Protein-calorie malnutrition, mild ([facility]HCC) Pyelonephritis Recent fracture of hip ([facility]HCC) Smoker Sepsis without acute organ dysfunction ([facility]HCC) Sepsis due to Escherichia coli without acute organ dysfunction ([facility]HCC) S/P PTCA (percutaneous transluminal coronary angioplasty) Sepsis due to urinary tract infection ([facility]) Traumatic rhabdomyolysis ([facility]) Two-vessel coronary artery disease Closed lumbar vertebral fracture ([facility]) Past Medical History: History reviewed. No pertinent past medical history. Past Surgical History: History reviewed. No p (more content not included)...[facility]09-04-2024 Anthony left a message last week for digital coordinator Irish with [facility] regarding a referral from Dr. Barraza's office to get clarification on what needs done this patient. Spoke with Irish and patient needs to be seen in the office for a second opinion regarding a gastrojejunal ulcer. Did call and leave a message for Mr. Roche to call and schedule an office appointment with Dr. Valerio Plummer and call back # of [phone]. [facility]07-29-2024 Progress note Author Anat Perez [facility] February 07, 2024 5:07pmNote Date/TimeJuly 2023 3:18[place] [address] Cardiology Progress Note Signed Patient: Manolo Roche MR#: [id number] : 1935 Acct:[id number] Age/Sex: 88 / M Adm Date: 4 Loc: Room: [address] [place] [address] Type: ADM IN Attending Dr: Warren Gross DO Copies to: ~ Date of Service: 02/07/2024 Subjective Interval history: Mr. Roche is a 88yo M with the PMH below who is admitted to [facility] on 02/06/24 for melanotic stool and a syncopal episode at home. He has been feeling weak and lightheaded x several days. He has ahistory of PUD and recent EGD on 09/01/23 [...] was ordered for him after recent hospital stay[place]. On admission, stool occult blood was positive. [...] MPV Neut % (Auto) Lymph % (Auto) [place] % (Auto) Eos % (Auto) Baso % (Auto) Nucleat RBC Rel Count Neut # (Auto) Lymph # (Auto) [place] # (Auto) Eos # (Auto) Baso # (Auto) PHA Creatinine Clear Sodium Potassium Chloride Carbon Dioxide Anion Gap BUN Creatinine Est GFR (CKD-EPI) Glucose POC Glucose 377 POC Glucose Comment Glu2: cleaned meter Estimat Average Glucose 194 Hemoglobin A1c 8.4 H Calcium Magnesium Blood Type A Positive Antibody Screen Negative Crossmatch ([facility]) See Detail 02/06/24 02/06/24 02/06/24 20:51 20:51 20:53 Corrected WBC Uncorrected WBC Count RBC Hgb Hct MCV MCH MCHC RDW Plt Count MPV Neut % (Auto) Lymph % (Auto) [place] % (Auto) Eos % (Auto) Baso % (Auto) Nucleat RBC Rel Count Neut # (Auto) Lymph # (Auto) [place] # (Auto) Eos # (Auto) Baso # (Auto) PHA Creatinine Clear Sodium Potassium Chloride Carbon Dioxide Anion Gap BUN Creatinine Est GFR (CKD-EPI) Glucose POC Glucose 547 H* 523 H* POC Glucose Comment Will notify dr/rn Glu2: cleaned meter Estimat Average Glucose Hemoglobin A1c Calcium Magnesium Blood Type Antibody Screen Crossmatch ([facility]) 02/06/24 02/06/24 02/06/24 20:53 20:53 22:12 Corrected WBC Uncorrected WBC Count RBC Hgb 9.0 L Hct 26.4 L MCV MCH MCHC RDW Plt Count MPV Neut % (Auto) Lymph % (Auto) [place] % (Auto) Eos % (Auto) Baso % (Auto) Nucleat RBC Rel Count Neut # (Auto) Lymph # (Auto) [place] # (Auto) Eos # (Auto) Baso # (Auto) PHA Creatinine Clear Sodium Potassium Chloride Carbon Dioxide Anion Gap BUN Creatinine Est GFR (CKD-EPI) Glucose POC Glucose POC Glucose Comment Will notify dr/rn Follow hypoglycemic Estimat Average Glucose Hemoglobin A1c Calcium Magnesium Blood Type Antibody Screen Crossmatch ([facility]) 02/07/24 02/07/24 02/07/24 06:21 06:35 11:12 Corrected WBC 7.2 Uncorrected WBC Count 7.2 RBC 3.24 L Hgb 8.7 L Hct 25.3 L MCV 78.1 L MCH 26.7 L MCHC 34.2 RDW 19.3 H Plt Count 184 MPV 10.8 H Neut % (Auto) 47.8 Lymph % (Auto) 28.8 [place] % (Auto) 16.7 Eos % (Auto) 5.5 Baso % (Auto) 1.2 Nucleat RBC Rel Count 0.2 Neut # (Auto) 3.4 Lymph # (Auto) 2.1 [place] # (Auto) 1.2 H Eos # (Auto) [...] 1.6 L Blood Type Antibody Screen Crossmatch ([facility]) A&P - Cardiology (1) Acute GI bleeding: Code(s): K92.2 - Gastrointestinal hemorrhage, unspecified (2) Elevated troponin: Code(s): R79.89 - Other specified abnormal findings of blood chemistry (3) Coronary artery disease involving [place] coronary artery of [place] heart without angina pectoris: Code(s): I25.10 - Atherosclerotic heart disease of [place] coronary artery without angina pectoris (4) S/P PTCA (percutaneous transluminal coronary angioplasty): Code(s): Z98.61 - Coronary angioplasty status Plan # Acute recurrent GI Bleed in setting of known PUD (recent EGD on 09/01/23 found a 2 cm ulcer with anonbleeding visible vessel at the bulb of the duodenum). # CAD s/p PCI in Jul 2023. # Ischemic Cardiomyopathy s/p LifeVest ordered in [place] - Well compensated. # Non-ACS myocardial injury - Is due to demand-supply mismatch 2/2 acute anemia. 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 Current smoker. [facility] 04/30/23 - Two-vessel coronary artery disease- 100% prox LAD occlusion; 80% D1; LCx has 50% prox stenosis with 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 Echo 04/28/24 - EF 40-45%, mild LVH, trace MR and TR. [facility] 07/16/22 - Successful PCI ostial/proximal LAD-diagonal branch; true LADLE HANDLER proximal/mid LAD (attempted wiring with balloon). EKG 09/07/23 - sinus peace 56 bpm, anterolateral TWI. EKG 09/08/23 - sinus peace 58 bpm, anterolateral and inferior TWI. - Pt is currently 6 months out from PCI. Will stop Plavix and if Hb remains stable, continue ASA 81mg daily. - Reviewed records from hospitalization at [facility] in [place]. He was hospitalized for NSTEMI and PNA. [...] follow Documented By: Anat Perez MD 02/07/24 8042 Signed By: <Electronically signed by Anat Perez MD> 02/07/24 1701 [facility] Work Phone: 1(456) 126-122007-29-2024 Progress note Author Warren Gross [facility] February 07, 2024 12:28pmNote Date/TimeJuly 2023 12:29pm[place] [address] Hospitalist Progress Note Signed Patient: Manolo Roche MR#: [id number] : 1935 Acct:[id number] Age/Sex: 88 / M Adm Date: 4 Loc: Room: [address] [place] [address] Type: ADM IN Attending Dr: Warren Gross [...] either IR or open surgery. Patient is agreeableand understands this. Denies any complaints this point [...] 2 cap 02/06/24 08:00 02/07/24 10:59 Lipa/Prot/Amyla 2476-120k 1 Cap Capsule. PO 02/05/25 07:59 Not [...] Insuln.Pen SUBCUT 02/05/25 21:59 Not Given TID.WM.HS [facility] Protocol Insulin Aspart 0 units 02/07/24 08:00 02/07/24 10:58 Insulin Aspart 300 Units/3 Ml Insuln.Pen SUBCUT 02/06/25 07:59 Not Given TID.WITH.MEALS [facility] Protocol Insulin Glargine 6 units 02/07/24 [...] (1,000 Units) Tablet PO 02/06/25 08:59 DAILY [facility] A&P - Hospitalist Assessment/Plan (1) Acute [...] with reduced ejection fraction requiring LifeVest, likely relatedback to the acute coronary syndrome he had [...] By: <Electronically signed by Warren Gross DO> 02/07/241227 [facility] Work Phone: 1(874) 277-425407-29-2024 [facility] Progress note Author Sushant Cordon [facility] February 06, 2024 9:45pmNote Date/TimeJuly 2023 9:45[place] [address] Progress Note Signed Patient: Manolo Roche MR#: [id number] : 1935 Acct:[id number] Age/Sex: 88 / M Adm Date: 4 Loc: Room: [address] [place] [address] Type: ADM IN Attending Dr: Nayeli Jimenez MD Copies to: ~ Date of Service: 02/06/2024 Progress Narrative Note PROGRESS NOTE Progress Note: Today the patient has developed progressively worsening hyperglycemia. The patient has history of total pancreatectomy a few years ago when he lived [facility]. He uses a G7 continuous glucose monitoring [...] the Omnipod is that itgives him 0.5 unitsof insulin per hour, for a total of [...] in anticipation that he can get the endoscopyprocedure tomorrow on Wednesday. Documented By: Sushant Cordon DO [id number] Signed By: <Electronically signed by Sushant Cordon DO> 02/06/242144 [facility] Work Phone: 1([phone]) 206-152007-28-2024 Consult note Author Chuck Velasco [facility] February 06, 2024 2:44pmNote Date/TimeJuly 2023 2:36pm[place] [address] Cardiology Consult Note Signed Patient: Manolo Roche MR#: [id number] : 1935 Acct:[id number] Age/Sex: 88 / M Adm Date: 4 Loc: 3T Room: [address] [place] [address] Type: ADM IN Attending Dr: Nayeli Jimenez MD Copies to: MD Nayeli Varner MD Robert J Vaschak,DO~ Cardiology HPI History of Present Illness Consult Date: 02/06/24 Reason for Consult: GI Bleeding HPI: Mr. Roche is a 88yo M with the PMH below who is admitted to [facility] on 02/06/24 for melanotic stool and a syncopal episode at home. He has been feeling weak and lightheaded x several days. He has ahistory of PUD and recent EGD on 09/01/23 [...] was ordered for him after recent [place] stay[place]. On admission, stool occult blood was positive. Severe anemia of 7.7, with normal Plt of 277. Troponin was mildly elevated at 50--77--85. EKG shows sinus peace with anterolateral and inferior TWI. Review of Systems Review of Systems All other systems reviewed & are negative unless noted below or in HPI [facility] Medical History Hypertension CAD (coronary artery disease) [...] days #30 tabs 05/07/23 [Rx Confirmed 02/05/24] ndujkb-wnrgcgcr-cddrbbd 24,000-76,000-120,000 unit capsule,delayed rel (Creon) 2cap PO [...] unit subcut HS 08/31/23 [History Confirmed 10/28/23] nziisnrijpws-imrnmwvn-eosrbo tablet (Multivitamin 50 Plus tablet) 1 tab [...] 90 days #180tabs 11/11/23 [Rx Confirmed 10/28/23] nhyvrk-yjnrnvej-ujpipbz 24,000-76,000-120,000 unit capsule,delayed rel (Creon) 1cap PO [...] Lymph # (Auto) 1.5 1.8 (1.00-4.8) x10E3/uL [place] # (Auto) 0.4 0.7 (0.0-0.8) x10E3/uL Eos [...] 8 MG/HR 10 mls/hr IV .Q10H TAVIA Rx#:[id number] Sodium Chloride 0.9% 1,000 ml 1 1000 / 1000 ,000 ml @ 999 mls/hr IV .Q1H1M ONE Rx#:[id number] Oral 0 / 0 Output: Urine 350 / 350 Other: Total Intake (Blood Product) Cumulative Amt Leukocyte Reduced Rbc Unit 325 [id number] Leukocyte Reduced Rbc Unit 325 [id number] Weight 65.5 kg 65.5 kg Date of Last Bowel Movement 02/06/24 02/06/24 Lab 02/05/24 19:34 PT 15.5 H INR 1.3 APTT 23.6 L A&P - Cardiology (1) Acute GI bleeding: Code(s): K92.2 - Gastrointestinal hemorrhage, unspecified (2) Elevated troponin: Code(s): R79.89 - Other specified abnormal findings of blood chemistry (3) Coronary artery disease involving [place] coronary artery of [place] heart without angina pectoris: Code(s): I25.10 - Atherosclerotic heart disease of [place] coronary artery without angina pectoris (4) S/P PTCA (percutaneous transluminal coronary angioplasty): Code(s): Z98.61 - Coronary angioplasty status Plan # Acute recurrent GI Bleed in setting of known PUD (recent EGD on 09/01/23 found a 2 cm ulcer with anonbleeding visible vessel at the bulb of the duodenum). # CAD s/p PCI in Jul 2023. # Cardiomyopathy s/p LifeVest ordered in [place] - Well compensated. # Non-ACS myocardial injury - Is due to demand-supply mismatch 2/2 acute anemia. 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 Current smoker. [facility] 04/30/23 - Two-vessel coronary artery disease- 100% prox LAD occlusion; 80% D1; LCx has 50% prox stenosis with 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 Echo 04/28/24 - EF 40-45%, mild LVH, trace MR and TR. [facility] 07/16/22 - Successful PCI ostial/proximal LAD-diagonal branch; true LADLE HANDLER proximal/mid LAD (attempted wiring with balloon). EKG 09/07/23 - sinus peace 56 bpm, anterolateral TWI. EKG 09/08/23 - sinus peace 58 bpm, anterolateral and inferior TWI. - Get records from [place] on recent hospitalization and LifeVest. - GI [...] <Electronically signed by Chuck Velasco MD> 02/06/24 1444 [facility] Work Phone: 1(837) 981-841407-28-2024 Progress note Author Nayeli Jimenez [facility] February 06, 2024 12:35pmNote Date/TimeJuly 2023 12:35pm[place] [address] Hospitalist Progress Note Signed Patient: Manolo Roche MR#: [id number] : 1935 Acct:[id number] Age/Sex: 88 / M Adm Date: 4 Loc: 3T Room: 6O3627-5 Type: ADM IN Attending Dr: Nayeli Jimenez MD Copies to: ~ Date of Service: 02/06/2024 Subjective Subjective Narrative: Patient was seen evaluated at bedside, remained afebrile, hemodynamically appears stable, patient denies any BMs while here. Seen by GI team recommended cardiac clearance given his cardiac hx. Will obtain records from [place] as pt recently been there for concerns [...] cap 02/06/24 09:00 Lipa/Prot/Amyla 24-76-120k 1 Cap Capsule. PO 02/05/25 08:59 TID TAVIA Lipase/Protease/Amylase 2 cap 02/06/24 08:00 Lipa/Prot/Amyla 24-76-120k [address] PO 02/05/25 07:59 TID.WITH.MEALS TAVIA Atorvastatin Calcium 80 [...] Not Given QSHIFT TAVIA Sucralfate 1 gm 07/28/24 12:00 Sucralfate 1 Gm Tablet PO 02/05/25 11:59 Q6HR TAVIA Tamsulosin HCl 0.4 mg 02/06/24 09:00 02/06/24 09:23 Tamsulosin 0.4 Mg Cap.Er.24h PO 02/05/25 08:59 0.4 mg DAILY TAVIA Administration Vitamin D 50 mcg 02/07/24 09:00 Cholecalciferol 25 Mcg (1,000 Units) Tablet PO 02/06/25 08:59 DAILY [facility] A&P - Hospitalist Assessment/Plan (1) Acute [...] with reduced ejection fraction requiring LifeVest, likely relatedback to the acute coronary syndrome he had [...] signed by Nayeli Jimenez MD> 02/06/24 1235 [facility] Work Phone: 1(436) 776-709107-28-2024 Consult note Author Manuel Barraza [facility] February 06, 2024 9:36amNote Date/TimeJuly 2023 9:[address] [place] [address] Gastroenterology Consult Note Signed Patient: Manolo Rohce MR#: [id number] : 1935 Acct:[id number] Age/Sex: 88 / M Adm Date: 4 Loc: Room: [address] [place] [address] Type: ADM IN Attending Dr: Nayeli Jimenez MD Copies to: MD Nayeli Rendon MD Robert J Vaschak,DO~ HPI Data of Consult Date of Consultation: 02/06/24 Requesting Physician: Nayeli Jimenez MD Consult Narrative History of present illness: Mr. Roche is a 88 year old male admitted with syncopal episode. Briefly, the patient presented earlier this month to the [facility] after being found down, unresponsive noted low blood sugars. He was ultimately transferred to [facility] in [place]. Noted a nondisplaced ulnar fracture, atypical PNA, [...] weeks ago, prior to his admission in [place]. She does not think he is on his PPI any longer, she believes he completed treatment with that. Remote colonoscopy she reports as normal. On admission BPs initially soft, but fluid responsive. Hgb down ~2 gram from discharge from [place] 2 weeks ago. Uptrending troponin. Havingsome dynamic [...] Hematologic/Lymphatic: Denies easy bruising and Denies lymphadenopathy [facility] Medical History (Updated 02/06/24 @ 02:47 by [...] days #30 tabs 05/07/23 [Rx Confirmed 02/05/24] joopbi-xmrbtxat-qloxlfn 24,000-76,000-120,000 unit capsule,delayed rel (Creon) 2cap PO [...] unit subcut HS 08/31/23 [History Confirmed 10/28/23] gavmwmwqnjtx-sttbhiqi-kxibqy tablet (Multivitamin 50 Plus tablet) 1 tab [...] 90 days #180tabs 11/11/23 [Rx Confirmed 10/28/23] buzknw-pzykkcbz-vnnqpue 24,000-76,000-120,000 unit capsule,delayed rel (Creon) 1cap PO TID 02/05/24[History Confirmed 02/05/24] metoprolol succinate 25 mg tablet,extended [...] % (Auto) 78.3 Lymph % (Auto) 16.3 [place] % (Auto) 4.8 Eos % (Auto) 0.2 Baso % (Auto) 0.4 Nucleat RBC Rel Count 0.1 Neut # (Auto) 7.0 Lymph # (Auto) 1.5 [place] # (Auto) 0.4 Eos # (Auto) 0.0 [...] Type A Positive Antibody Screen Negative Crossmatch ([facility]) See Detail 02/06/24 06:56 Corrected WBC Uncorrected WBC Count RBC Hgb Hct MCV MCH MCHC RDW Plt Count MPV Neut % (Auto) Lymph % (Auto) [place] % (Auto) Eos % (Auto) Baso % (Auto) Nucleat RBC Rel Count Neut # (Auto) Lymph # (Auto) [place] # (Auto) Eos # (Auto) Baso # [...] this consult, will follow. Documented By: Manuel Barraza MD 02/06/24 0847 Signed By: <Electronically signed by Manuel Barraza MD> 02/06/24 0936 [facility] Work Phone: 1(221) 269-753407-28-2024 History and physical note Author Sushant Cordon [facility] February 06, 2024 2:52amNote Date/TimeJuly 2023 2:22[place], [place] [address] Hospitalist H&P Signed Patient: Manolo Roche MR#: [id number] : 1935 Acct:[id number] Age/Sex: 88 / M Adm Date: 4 Loc: Room: [address] [place] [address] Type: ADM IN Attending Dr: Sushant Cordon [...] for him after recent hospital stay in [place]. In the emergency room the reason why the patient was hospitalized in [place] or where was unknown to the patient [...] wakens up fairly easily. 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 He describes that yesterday was [...] state that after coming home from the [facility] with the LifeVest he beganusing Aleve due to the discomfort theLifeVest was causing on his back. He doessay I never took more than prescribed. He does recall getting the endoscopy by Dr. Shearer back in November but did not really seem to fully comprehend the results. He says that now a [facility] hospital was he originally went to [facility] where theydid an EKG and then promptly transported him to [facility]. At [facility] he does not know all the testing done but he does not describe a cardiac catheterization, but he does describe an ec hocardiogram and then placement of the LifeVest. 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 And after that he developed diabetes that has been managed with a jean paul and a insulin pump Review of Systems Review of Systems Review of systems: 10 systems are reviewed and are negative except as mentioned elsewhere in the documentation. [facility] Medical History (Updated 02/06/24 @ 02:47 by [...] days #30 tabs 05/07/23 [Rx Confirmed 02/05/24] fwjfld-haajrcxr-pttafea 24,000-76,000-120,000 unit capsule,delayed rel (Creon) 2cap PO [...] unit subcut HS 08/31/23 [History Confirmed 10/28/23] utddapbnsxbc-vxhfxdfd-ccgqnf tablet (Multivitamin 50 Plus tablet) 1 tab [...] 90 days #180tabs 11/11/23 [Rx Confirmed 10/28/23] fzoxip-qylfxzwt-dvhbcfa 24,000-76,000-120,000 unit capsule,delayed rel (Creon) 1cap PO TID 02/05/24[History Confirmed 02/05/24] metoprolol succinate 25 mg tablet,extended [...] well conversant for his age and 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 He is wearing the [employer]. Jean Paul continuous glucose monitoring device on [...] % (Auto) 16.3 % (.) 02/05/24 19:34 [place] % (Auto) 4.8 % (.) 02/05/24 19:34 Eos % (Auto) 0.2 % (.) 02/05/24 19:34 Baso % (Auto) 0.4 % (.) 02/05/24 19:34 Nucleat RBC Rel Count 0.1 /100 WBC (0-0.5) 02/05/24 19:34 Neut # (Auto) 7.0 x10E3/uL (1.8-7.7) 02/05/24 19:34 Lymph # (Auto) 1.5 x10E3/uL (1.00-4.8) 02/05/24 19:34 [place] # (Auto) 0.4 x10E3/uL (0.0-0.8) 02/05/24 19:34 [...] with reduced ejection fraction requiring LifeVest, likely relatedback to the acute coronary syndrome he had in early July 2023. Right now his congestive heart failure is extremely well compensated with no legedema and entirely clear lungs to auscultation. Plan: Hospital admission, inpatient status. Will transfuse 1 unit of packed red blood cells this morning and then get a.m. labs and then likelytransfuse a second unit of packed red blood [...] setting as: INPATIENT because of an expectation ofan over 2 midnight stay. Estimated length of stay (# of days): 5 Documented By: Sushant Cordon DO 217 Signed By: <Electronically signed by Sushant Cordon DO> 02/06/24251 [facility] Work Phone: 1(546) 384-618704-11-2024 Evaluation note* Author Alberto Shearer [facility] Medical CenterAuthoredApril 2023 8:31ul36-frrd-snd man with history of coronary artery disease s/p stent placement on 07/16/2023 who was recently hospitalized for melena s/p EGD with control of bleeding who came today for follow-up. 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 pylori, patient completed quadruple therapy, he has been on Protonix 40 mg twice daily since the EGD. -Will arrange for EGD to assess ulcer healing and to confirm H. pylori eradication. -I discussed with the patient possible Lewis's diagnosis and recommended EGD every 3 to 5 years. 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 He will follow up with primary Cardiology next week [facility] Work Phone: 1(280) 567-446102-05-2024 Miscellaneous Notes* Assessment & Plan Note - [...] Problem(s): ASHD (arteriosclerotic heart disease) Jun 2023 [facility] presented due to mechanical fall. Incidental troponin elevations Echo EF 40-45% Cath: two-vessel disease; ef 40% anterior hypokinesis Elective PCI: Jul LAD: unsuccessful attempt - LADLE HANDLER oDiag PCI/Mark 3.5 x 18mm Daily activity < 4 METs documented in this encounter[facility] Work Phone: 1([phone]) 424-262602-05-2024 Evaluation + Plan note* Assessment & Plan Note - JAMIE Miramontes - 08/16/2023 2:37 PM ESTAssociated Problem(s): ASHD (arteriosclerotic heart disease) Jun 2023 [facility] presented due to mechanical fall. Incidental troponin elevations Echo EF 40-45% Cath: two-vessel disease; ef 40% anterior hypokinesis Elective PCI: Jul LAD: unsuccessful attempt - LADLE HANDLER oDiag PCI/[place] 3.5 x 18mm Daily activity < 4 METs [facility] Work Phone: 1(859) 426-670802-05-2024 History of Present illness Narrative* JAMIE Miramontes [...] to date. Will be seeking POCfrom primary hr operations advisor. Patient reports that overall has complaint(s) of [...] to Plavix. Will schedule follow-up with primary hr operations advisor Dr. Perez next week. Review of Systems [...] Assessment: ASHD (arteriosclerotic heart disease) Jun 2023 [facility] presented due to mechanical fall. Incidental troponin elevations Echo EF 40-45% Cath: two-vessel disease; ef 40% anterior hypokinesis Elective PCI: Jul LAD: unsuccessful attempt - LADLE HANDLER oDiag PCI/Mark 3.5 x 18mm Daily activity [...] bring your medications to the office Sammy Berman MSN, JAMIE, PMHNP-[facility] Please excuse any errors in grammar or translation related to this dictation. Voice recognition software was utilized to prepare this document. documented in this encounterMet[facility] Work Phone: 1(283) [phone] Instructions* Patient Instructions* JAMIE Miramontes - 08/16/2023 [...] medications to the office documented in this encounterMet[facility] Work Phone: [phone]) [phone] Discharge summary Author Federico Ryan [facility] July 16, 2023 4:09pmNote Date/TimeJan2023 4:06pmNatasha Ville [id number] Discharge Summary Signed Patient: Manolo Roche MR#: [id number] : 1935 Acct:[id number] Age/Sex: 88 / M Adm Date: 4 Loc: Room: Attending Dr: Federico Davis DO Copies to: DO Federico Rodriguez, ~ Providers Date of Discharge: 07/16/23 Discharging Provider: Federico Davis Primary Care Provider: Marie Tejeda Discharge Diagnosis (1) Non-ST elevation myocardial infarction (NSTEMI), subendocardial infarction, subsequent episode of care: (2) Diabetes: (3) CAD (coronary artery disease): Final Diagnosis Final Discharge Diagnosis: 1. Recent non-ST elevation WA associated with fall and hip fracture 2. Severe two-vessel ASHD involving mid LAD and diagonal branch bifurcation 3. Mild LV dysfunction 4. Successful PCI ostial diagonal branch into the LAD with 3.5 x 18 mm [place] stent 5. Chronic total occlusion proximal/mid LAD Summary Hospital Course Hospital course: 88-year-old gentleman with recent fall and hip fracture complicated by non-ST elevation WA, abnormal stress imaging and subsequent diagnosis of severe two- vessel coronary artery disease involving midLAD and large diagonal branch bifurcation. The LAD itself is subtotally occluded with the diagonal branch origin being 80 to 85%. Patient was referred for elective attempt at crossing the LAD with possible revascularization as well as revascularization of the ostial diagonal branch. LAD was attempted and deemed a LADLE HANDLER and therefore aborted, diagonal branch was stented with a 3.5 x 18 mm [place] stent without complications Patient will be discharged [...] 4.17, Hgb 11.0 L, Hct 33.5 L, MCV80.4 L, MCH 26.4 L, MCHC 32.8, RDW 16.5 H, Plt Count 243, MPV 10.1, Neut % (Auto) 75.7, Lymph % (Auto) 8.4, [place] % (Auto) 15.1, Eos % (Auto) 0.3, Baso % (Auto) 0.5, Nucleat RBC Rel Count 0.1, Neut # (Auto) 6.3, Lymph # (Auto) 0.7 L, [place] # (Auto) 1.3 H, Eos # (Auto) [...] stent occurs in the first 2-3 weeks afterimplantation, you will need to take anticoagulants for [...] doctor or pharmacist, without first calling the hr operations advisor who implanted the stent. If you require [...] weight lifting, stair steppers, etc. until the hr operations advisor approves these activities. Check with the hr operations advisor on your first follow-up visit. CALL YOUR PHYSICIAN at [phone]: -If bleeding should occur from the catheter insertion site- apply pressure to the site then immediately call us. -Report any fever, redness, drainage, increased swelling, or firmness at the catheter insertion site. Some bruising or slight swelling may be present at thetime of discharge. -Should arm or leg become cold, numb, white, or blue, contact the hr operations advisor immediately. -IF you should experience episodes of angina, e.g. chest discomfort, heaviness, tightness, pressureburning with or without radiation to the neck, jaw, arms or back- use 1 Nitrostat tablet under yourtongue every 5-10 minutes and up to three tablets. IF NO RELIEF, CALL 911 or GO TO THE NEAREST EMERGENCY ROOM. -Please notify our office if you have recurrent angina. -[Cardiac Rehab Education Provided. Participation in the Cardiopulmonary Rehabilitation program is recommended. Please call Central Scheduling at [phone] to schedule your appointment.] The attending hr operations advisor or [facility] nurse clinician should provide you with specific instructions regarding activity, diet, medications, and further follow up for you. Follow the medication instructions provided on your discharge. If the dosages and instructions on this sheet differ from the dosage and instructions on the bottle, follow the instructions on the bottle. [facility] is not responsible for incorrect [...] 30 Days Qty: 30 0RF Follow Up: [facility] [Outside] - 08/16/23 2:00 pm Documented By: Federico Davis DO 07/16/23 1602 Signed By: <Electronically signed by Federico Davis DO> 07/16/23 1609 [facility] Work Phone: 1(524) [phone] Procedure noteAden[facility] Center11-14-2023 History of Present illness Narrative* Govind Davis DO - 05/25/2023 1:00 PM EST Subjective Manolo Roche is a 88 y.o. male Chief Complaint Hospital Follow-up Seen in cardiology consultation at the request of Dr. Anat Perez for further evaluation and management in regards to coronary artery disease, recent non-ST elevation WA with moderately reduced left ventricular dysfunction and [...] Future 3. NSTEMI (non-ST elevated myocardial infarction) ([facility]) - Follow Up In Cardiology; Future 4. Essential hypertension 5. Diabetes mellitus type II, non insulin dependent ([facility]) 6. Closed fracture of right hip, initial encounter ([facility]) documented in this encounterMet[facility] Work Phone: [phone]) 290-256611-14-2023 Instructions* Patient Instructions* Lori Pelayo LPN - [...] time of your visit. documented in this encounterMet[facility] Work Phone: 1([phone]) 704-242311-10-2023 Evaluation note* Encounter Date Diagnosis Assessment Notes Treatment Notes Treatment Clinical Notes May, Closed displaced int ertrochanteric fracture of right femur, initial encounter (ICD-10 - S72.141A) Radiographs of right hip was reviewed with the patient today, along with a physical examination. Patient should continue with PT. Continue use of pain medication to control pain. Bilna Other 10-27-2023 Progress note Author Fredi Medrano [facility] May 07, 2023 12:48pmNote Date/TimeOctober 2022 12:36[place] [address] Physiatry(Rehab) Progress Note Signed Patient: Manolo Roche MR#: [id number] : 1935 Acct:[id number] Age/Sex: 88 / M Adm Date: 3 Loc: Room: [address] [place] [address] Type: ADM IN Attending Dr: Fredi Medrano MD Copies to: ~ Date of Service: 05/07/2023 Subjective Subjective Narrative: Mr. Roche is a 88 year old male with [...] hypoglycemic in 40s. Patient was brought to [facility] ER where imaging demonstrated mildly displaced right [...] does not believe he has had an WA and is planning on performing an intervention afterhe completes rehab. Patient underwent reduction internal fixation short intramedullary nailing of the right hip fracture on 04/30/[address] Conrad. Postop he is to weight- bearas tolerated to the right lower extremity.Placed on SQ Lovenox for DVT prophylaxis. Postop [...] mg 05/03/23 16:59 Bisacodyl 10 Mg Supp.Rect IN 05/02/24 16:58 DAILY PRN Constipation Calcium Carbonate [...] 16:59 Docusate Enema 283 Mg/5 Ml Enema IN 05/02/24 16:58 DAILY PRN Constipation Enoxaparin Sodium [...] Insuln.Pen SUBCUT 05/02/24 16:59 6 units TID.WITH.MEALS [facility] Administration Protocol Insulin Aspart 0 units 05/03/23 18:00 05/07/23 12:13 Insulin Aspart 300 Units/3 Ml Insuln.Pen SUBCUT 05/02/24 17:59 2 units ACHS [facility] Administration Protocol Insulin Glargine 7 units [...] Code(s): I25.10 - Atherosclerotic heart disease of [place] coronary artery without angina pectoris Status: Acute [...] Code(s): I25.10 - Atherosclerotic heart disease of [place] coronary artery without angina pectoris Status: Acute (9) Postoperative pain, acute, hip: Code(s): G89.18 - Other acute postprocedural pain; M25.559 - Pain in unspecified hip Status: Acute Plan 88-year-old male presenting to acute inpatient rehabilitation unit with functional impairments secondary to right hip fracture s/p repair. Hospital course complicated by non-WA troponin elevation. Hewas found to have two-vessel heart disease. Intervention is planned in outpatient settings after hecompletes rehab course. * No acute events or [...] equipment to enhance the patient's a functional sabianism Ensure adequate nutrition and hydration Sleep no issues Pain: Continue current regimen. Discharge planning Home with in 7 to 10 days. I spent greater than 15 minutes for services, including eqki-ty-iabx encounter with the patient, discussion of the case, plan of care, and exam; and ekcrkcf-jk-ygzl activities, such as reviewing pertinent data integrity consultant documentation, recent therapy notes, laboratory and radiology studies, and discussion of case with care team including physician, nursing, family preservation caseworker, and therapists. More than 50 % of time was spent on patient/family counseling or coordination ofcare. Plan: I completed a substantive portion of this encounter, the medical decision makingportion of this note in its entirety, including Allied health note review, nursing note review, data integrity consultant note review,discussion with nursing and case management, and more than 50% of my time was spent on counseling and coordination of care, time spent 25 minutes Patient was personally seen by me, Dr. Medrano, on the day of encounter, reviewed the history and the relevant portions of the chart, including current orders, allied health and data integrity consultant notes, labs/imaging and performed smyth elements of exam and I formulated the plan of care and facilitated the medical decision making. Documented By: Fredi Medrano MD 1234 Signed By: <Electronically signed by Fredi Medrano MD> 05/07/23 1248 [facility] Work Phone: 1(160) 573-880410-26-2023 Progress note Author Fredi Medrano [facility] May 06, 2023 2:46pmNote Date/TimeOctober 2022 12:53pm[place] [address] Physiatry(Rehab) Progress Note Signed Patient: Manolo Roche MR#: [id number] : 1935 Acct:[id number] Age/Sex: 88 / M Adm Date: 3 Loc: Room: [address] [place] [address] Type: ADM IN Attending Dr: Fredi Medrano MD Copies to: ~ <Teena Victoria APRN - Last Filed: 05/06/23 13:14> Date of Service: 05/06/2023 Subjective <Teena Victoria APRN - Last Filed: 05/06/23 13:14> Subjective Narrative: Mr. Roche is a 88 year old male with [...] hypoglycemic in 40s. Patient was brought to [facility] ER where imaging demonstrated mildly displaced right [...] does not believe he has had an WA and is planning on performing an intervention afterhe completes rehab. Patient underwent reduction internal fixation short intramedullary nailing of the right hip fracture on 04/30/[address] Conrad. Postop he is to weight- bearas tolerated to the right lower extremity.Placed on SQ Lovenox for DVT prophylaxis. Postop [...] needing some assistance with transfers. We discussed stayingover the weekend and possibly bringing his in [...] mg 05/03/23 16:59 Bisacodyl 10 Mg Supp.Rect IN 05/02/24 16:58 DAILY PRN Constipation Calcium Carbonate [...] 16:59 Docusate Enema 283 Mg/5 Ml Enema IN 05/02/24 16:58 DAILY PRN Constipation Enoxaparin Sodium [...] Insuln.Pen SUBCUT 05/02/24 16:59 7 units TID.WITH.MEALS [facility] Administration Protocol Insulin Aspart 0 units 05/03/23 18:00 05/06/23 06:38 Insulin Aspart 300 Units/3 Ml Insuln.Pen SUBCUT 05/02/24 17:59 Not Given ACHS [facility] Protocol Insulin Glargine 7 units 05/03/23 [...] mg DAILY TAVIA Administration Assessment/Plan <Teena Victoria, SENIOR DYNAMICS CRM DEVELOPER - Last Filed: 05/06/23 13:14> Assessment/Plan (1) Closed intertrochanteric fracture of right hip: Code(s): S72.141A - Displaced intertrochanteric fracture of right femur, initial encounter for closed fracture Status: Acute (2) CAD (coronary artery disease): Code(s): I25.10 - Atherosclerotic heart disease of [place] coronary artery without angina pectoris Status: Acute [...] Code(s): I25.10 - Atherosclerotic heart disease of [place] coronary artery without angina pectoris Status: Acute (9) Postoperative pain, acute, hip: Code(s): G89.18 - Other acute postprocedural pain; M25.559 - Pain in unspecified hip Status: Acute Plan 88-year-old male presenting to acute inpatient rehabilitation unit with functional impairments secondary to right hip fracture s/p repair. Hospital course complicated by non-WA troponin elevation. Hewas found to have two-vessel heart disease. Intervention is planned in outpatient settings after hecompletes rehab course. * No acute events or [...] equipment to enhance the patient's a functional sabianism Ensure adequate nutrition and hydration Sleep no issues Pain: Continue current regimen. Discharge planning Home with in 7 to 10 days. I spent greater than 15 minutes for services, including uwaw-hc-ztgg encounter with the patient, discussion of the case, plan of care, and exam; and yhyooxz-ju-vpxi activities, such as reviewing pertinent data integrity consultant documentation, recent therapy notes, laboratory and radiology studies, and discussion of case with care team including physician, nursing, family preservation caseworker, and therapists. More than 50 % [...] the chart, including currentorders, allied health and data integrity consultant notes, labs/imaging and plan of care as above. Documented By: Teena Victoria APRN 05/06/23 1 250 Signed By: <Electronically signed by AMADA Victoria> 05/06/23 1314 <Electronically signed by Fredi Medrano MD> 05/06/23 1446 [facility] Work Phone: 1(552) 802-485110-26-2023 Consult note Author Vidya Robert [facility] May 06, 2023 1:15pmNote Date/TimeOct2022 3:49pm[place] [address] Hospitalist Consult Note Signed Patient: Manolo Roche MR#: [id number] : 1935 Acct:[id number] Age/Sex: 88 / M Adm Date: 3 Loc: Room: 7C0261-8 Type: ADM IN Attending Dr: Fredi Medrano [...] negative unless noted below or in HPI [facility] Medical History (Updated 05/04/23 @ 16:15 by [...] Allergies Allergy (Verified 04/28/23 12:20) Home Medications zrnyjz-zsobwxjn-vwiprej 24,000-76,000-120,000 unit capsule,delayed rel (Creon) 2cap PO TID 04/28/23[History Confirmed 05/03/23] paroxetine HCl 30 mg tablet [...] unit) tablet (Oyster Shell Calcium-Vitamin D3) 1 tabPO TID.WITH.MEALS #0 tabs 05/03/23 [Rx Confirmed 05/03/23] enoxaparin 40 mg/0.4 mL subcutaneous syringe (Lovenox) 40 mg (0.4 mL) subcut DAILY@1000 15 days #0 mL 05/03/23 [Rx Confirmed 05/03/23] hydrocodone 5 mg-acetaminophen 325 mg tablet 1 tab PO Q4H PRN Pain 05/03/23 [History Confirmed 05/03/23] insulin aspart U-100 100 unit/mL (3 mL) subcutaneous pen (Novolog FlexPen U-100 Insulin aspart) SeeProtocol subcut ACHS 05/03/23 [History Confirmed 05/03/23] insulin glargine 100 unit/mL (3 mL) subcutaneous pen (Lantus Solostar U-100 Insulin) 7 units (0.07 mL) subcut BID #0 mL 05/03/23 [Rx Confirmed 05/03/23] magnesium hydroxide 400 mg/5 mL oral suspension (Milk of Magnesia) 30 ml PO BID PRN Constipation #0mL 05/03/23 [Rx Confirmed 05/03/23] nitroglycerin 0.4 mg [...] mg 05/03/23 16:59 Bisacodyl 10 Mg Supp.Rect IN 05/02/24 16:58 DAILY PRN Constipation Calcium Carbonate [...] 16:59 Docusate Enema 283 Mg/5 Ml Enema IN 05/02/24 16:58 DAILY PRN Constipation Enoxaparin Sodium [...] 8.6, BUN 22, Creatinine 0.61 L, EstGFR (CKD-EPI) > 60.0, Glucose 120 H, Calcium 8.0 [...] % (Auto) 64.9, Lymph % (Auto) 23.0, [place] % (Auto) 9.9, Eos % (Auto) 1.5, Baso % (Auto) 0.7, Nucleat RBC Rel Count 0.2, Neut # (Auto) 4.6, Lymph # (Auto) 1.6, [place] # (Auto) 0.7, Eos # (Auto) 0.1, [...] Documented By: Nidia Wright APRN 04/12 11/01 4619 Signed By: <Electronically signed by AMADA Wright> 05/05/23 4145 <Electronically signed by Vidya Robert MD> 05/06/23 1313 [facility] Work Phone: 1([phone]) 183-468410-25-2023 Progress note Author Fredi Medrano [facility] May 05, 2023 1:10pmNote Date/TimeOctober 2022 1:11pm[place] [address] Physiatry(Rehab) Progress Note Signed Patient: Manolo Roche MR#: [id number] : 1935 Acct:[id number] Age/Sex: 88 / M Adm Date: 3 Loc: Room: [address] [place] [address] Type: ADM IN Attending Dr: Fredi Medrano MD Copies to: ~ Date of Service: 05/05/2023 Subjective Subjective Narrative: Mr. Roche is a 88 year old male with [...] hypoglycemic in 40s. Patient was brought to [facility] ER where imaging demonstrated mildly displaced right [...] does not believe he has had an WA and is planning on performing an intervention afterhe completes rehab. Patient underwent reduction internal fixation short intramedullary nailing of the right hip fracture on 04/30/[address] Conrad. Postop he is to weight- bearas tolerated to the right lower extremity.Placed on SQ Lovenox for DVT prophylaxis. Postop [...] mg 05/03/23 16:59 Bisacodyl 10 Mg Supp.Rect IN 05/02/24 16:58 DAILY PRN Constipation Calcium Carbonate [...] 16:59 Docusate Enema 283 Mg/5 Ml Enema IN 05/02/24 16:58 DAILY PRN Constipation Enoxaparin Sodium [...] Code(s): I25.10 - Atherosclerotic heart disease of [place] coronary artery without angina pectoris Status: Acute [...] Code(s): I25.10 - Atherosclerotic heart disease of [place] coronary artery without angina pectoris Status: Acute (9) Postoperative pain, acute, hip: Code(s): G89.18 - Other acute postprocedural pain; M25.559 - Pain in unspecified hip Status: Acute Plan 88-year-old male presenting to acute inpatient rehabilitation unit with functional impairments secondary to right hip fracture s/p repair. Hospital course complicated by non-WA troponin elevation. Hewas found to have two-vessel heart disease. Intervention is planned in outpatient settings after hecompletes rehab course. * Continue heart regimen per cardiology recommendations. Monitor cardiopulmonary status closely. Repeat EKG if complaints of chest pain, palpitations, dizziness. Plan for intervention after rehab. * Continue Lovenox for DVT prophylaxis * Uncontrolled diabetes. A1c levels >12, labile blood glucose levels. Trend FSBS closely. Adjustdiabetic regimen as required. * Add cyclobenzaprine 5 [...] equipment to enhance the patient's a functional sabianism Ensure adequate nutrition and hydration Sleep no issues Pain: Continue current regimen. Discharge planning Home with in 7 to 10 days. Plan: I completed a substantive portion of this encounter, the medical decision makingportion of this note in its entirety, including Allied health note review, nursing note review, data integrity consultant note review,discussion with nursing and case management, and more than 50% of my time was spent on counseling and coordination of care, time spent 25 minutes Patient was personally seen by me, Dr. Medrano, on the day of encounter, reviewed the history and the relevant portions of the chart, including current orders, allied health and data integrity consultant notes, labs/imaging and performed smyth elements of exam and I formulated the plan of care and facilitated the medical decision making. Documented By: Fredi Medrano MD 1308 Signed By: <Electronically signed by Fredi Medrano MD> 05/05/23 1310 [facility] Work Phone: 1(837) 268-452710-25-2023 History and physical note Author Fredi Medrano [facility] May 05, 2023 10:01amNote Date/TimeOct2022 11:35[place] [address] Physiatry (Rehab) H&P Signed Patient: Manolo Roche MR#: [id number] : 1935 Acct:[id number] Age/Sex: 88 / M Adm Date: 3 Loc: Room: [address] [place] [address] Type: ADM IN Attending Dr: Fredi Medrano MD Copies to: MD Teena Coyle APRN Robert J Vaschak,DO~ Date of Service: 05/04/2023 HPI The patient was seen and examined on: 05/04/23 History of Present Illness: Mr. Roche is a 88 year old male with [...] hypoglycemic in 40s. Patient was brought to [facility] ER where imaging demonstrated mildly displaced right [...] does not believe he has had an WA and is planning on performing an intervention afterhe completes rehab. Patient underwent reduction internal fixation short intramedullary nailing of the right hip fracture on 04/30/[address] Conrad. Postop he is to weight- bearas tolerated to the right lower extremity.Placed on SQ Lovenox for DVT prophylaxis. Postop [...] as chest pain, palpitation, shortness of breath. Lungsounds are clear to auscultation, heart rate and rhythm regular. Vitals within normal limits. At baseline patient is very active and independent with ADLs/IADLs. His lives with in a two-story home. Does not use assistive devices. [facility] Medical History Anxiety and depression BPH (benign [...] 12:20) Home and Active Meds: Home Medications ngxlxl-dexaxpqd-hygnndn 24,000-76,000-120,000 unit capsule,delayed rel (Creon) 2cap PO TID 04/28/23[History Confirmed 05/03/23] paroxetine HCl 30 mg tablet [...] unit) tablet (Oyster Shell Calcium-Vitamin D3) 1 tabPO TID.WITH.MEALS #0 tabs 05/03/23 [Rx Confirmed 05/03/23] enoxaparin 40 mg/0.4 mL subcutaneous syringe (Lovenox) 40 mg (0.4 mL) subcut DAILY@1000 15 days #0 mL 05/03/23 [Rx Confirmed 05/03/23] hydrocodone 5 mg-acetaminophen 325 mg tablet 1 tab PO Q4H PRN Pain 05/03/23 [History Confirmed 05/03/23] insulin aspart U-100 100 unit/mL (3 mL) subcutaneous pen (Novolog FlexPen U-100 Insulin aspart) SeeProtocol subcut ACHS 05/03/23 [History Confirmed 05/03/23] insulin glargine 100 unit/mL (3 mL) subcutaneous pen (Lantus Solostar U-100 Insulin) 7 units (0.07 mL) subcut BID #0 mL 05/03/23 [Rx Confirmed 05/03/23] magnesium hydroxide 400 mg/5 mL oral suspension (Milk of Magnesia) 30 ml PO BID PRN Constipation #0mL 05/03/23 [Rx Confirmed 05/03/23] nitroglycerin 0.4 mg [...] Bisacodyl (Bisacodyl 10 Mg Supp.Rect) 10 mg IN DAILY PRN PRN Reason: Constipation Stop: 05/02/24 [...] Enema 283 Mg/5 Ml Enema) 283 mg IN DAILY PRN PRN Reason: Constipation Stop: 05/02/24 16:58 Enoxaparin Sodium (Enoxaparin 40 Mg/0.4 Ml Syringe) 40 mg SUBCUT DAILY@1000 [facility] Stop: 05/03/24 09:59 Insulin Aspart (Insulin Aspart 300 Units/3 Ml Insuln.Pen) 0 units SUBCUT TID.WITH.MEALS [facility]; Protocol Stop: 05/02/24 16:59 Last Admin: 05/04/23 08:27 Dose: 7 units Insulin Aspart (Insulin Aspart 300 Units/3 Ml Insuln.Pen) 0 units SUBCUT ACHS [facility]; Protocol Stop: 05/02/24 17:59 Last Admin: 05/04/23 08:27 Dose: 1 units Insulin Glargine (Insulin Glargine 300 Units/3 Ml Insuln.Pen) 7 units SUBCUT BID [facility] Stop: 05/02/24 20:59 Last Admin: 05/04/23 [...] 30 Mg Tablet) 30 mg PO DAILY [facility] Stop: 05/03/24 08:59 Last Admin: 05/04/23 08:10 Dose: 30 mg Sennosides (Sennosides 8.6 Mg Tablet) 2 tab PO DAILY@12 PRN PRN Reason: If no BM in 2 days Stop: 05/03/24 11:59 Sodium Chloride (Sodium Chloride 0.9 % 10 Ml Syringe) 0 ml IV-PUSH PRN PRN PRN Reason: Flush Stop: 05/02/24 16:58 Tamsulosin HCl (Tamsulosin 0.4 Mg Cap.Er.24h) 0.4 mg PO DAILY [facility] Stop: 05/03/24 08:59 Last Admin: 05/04/23 08:10 Dose: 0.4 mg Triamcinolone Acetonide (Triamcinolone 0.1% Cream 15 Gm Tube) 1 applic TOPICAL QID PRN PRN Reason: Irritation Stop: 05/02/24 17:10 Valsartan (Valsartan 80 Mg Tablet) 80 mg PO DAILY [facility] Stop: 05/03/24 08:59 Last Admin: 05/04/23 [...] % (Auto) 64.9 Lymph % (Auto) 23.0 [place] % (Auto) 9.9 Eos % (Auto) 1.5 Baso % (Auto) 0.7 Nucleat RBC Rel Count 0.2 Neut # (Auto) 4.6 Lymph # (Auto) 1.6 [place] # (Auto) 0.7 Eos # (Auto) 0.1 [...] MPV Neut % (Auto) Lymph % (Auto) [place] % (Auto) Eos % (Auto) Baso % (Auto) Nucleat RBC Rel Count Neut # (Auto) Lymph # (Auto) [place] # (Auto) Eos # (Auto) Baso # [...] and obtained and summated medical records and haveordered follow up lab tests and imaging studies [...] improve pt's strength, endurance, bed mobility, transfers (sit- stand), standing balance, gait quality on level surfaces [...] 24 hour daily monitoring and intervention from [employer] as well as other consulting physicians including internal medicine as well as 24 hour daily auriculotherapist nursing - for medical safe / optimal manageme nt. Patient requires interdisciplinary therapy team rehabilitation care including OT, PT, SW, RehabNursing, requires and can tolerate at least 3 [...] Code(s): I25.10 - Atherosclerotic heart disease of [place] coronary artery without angina pectoris Status: Acute [...] Code(s): I25.10 - Atherosclerotic heart disease of [place] coronary artery without angina pectoris Status: Acute (9) Postoperative pain, acute, hip: Code(s): G89.18 - Other acute postprocedural pain; M25.559 - Pain in unspecified hip Status: Acute Plan 88-year-old male presenting to acute inpatient rehabilitation unit with functional impairments secondary to right hip fracture s/p repair. Hospital course complicated by non-[place] troponin elevation. Hewas found to have two-vessel heart disease. Intervention is planned in outpatient settings after hecompletes rehab course. * Continue heart regimen per cardiology recommendations. Monitor cardiopulmonary status closely. Repeat EKG if complaints of chest pain, palpitations, dizziness. * Continue Lovenox for DVT prophylaxis * Uncontrolled diabetes. A1c levels >12, labile blood glucose levels. Trend FSBS closely. Adjustdiabetic regimen as required. * Add cyclobenzaprine 5 [...] equipment to enhance the patient's a functional sabianism Ensure adequate nutrition and hydration Sleep no issues Pain: Continue current regimen. Discharge planning Home with in 7 to 10 days. I spent greater than 45 minutes for services, including [id number] encounter with the patient, discussion of the case, plan of care, and exam; and [id number] activities, such as reviewing pertinent data integrity consultant documentation, recent therapy notes, laboratory and radiology studies, and discussion of case with care team including physician, nursing, family preservation caseworker, and therapists. More than 50 % of time was spent on patient/family counseling or coordination ofcare. Plan: I completed a substantive portion of this encounter, the medical decision makingportion of this note in its entirety, including Allied health note review, nursing note review, data integrity consultant note review,discussion with nursing and case management, and more than 50% of my time was spent on counseling and coordination of care, time spent 70 minutes Patient was personally seen by me, Dr. Medrano, on the day of encounter, within 24 hours of rehab admission, reviewed the history and the relevant portions of the chart, including current orders, allied health and data integrity consultant notes, labs/imaging and performed smyth elements of exam and I formulatedthe planof care and facilitated the medical decision making. Documented By: Teena Victoria APRN 05/04/23 1 122 Signed By: <Electronically signed by AMADA Victoria> 05/04/23 1209 <Electronically signed by Fredi Medrano MD> 05/05/23 1001 [facility] Work Phone: 1([phone]) 539-398210-23-2023 Progress note Author Ashwini Conrad [facility] May 03, 2023 12:02pmNote Date/TimeOct2022 11:[address] [address] Orthopedic Progress Note Signed Patient: Manolo Roceh MR#: [id number] : 1935 Acct:[id number] Age/Sex: 88 / M Adm Date: 3 Loc: 4N Room: [address] [place] [address] Type: ADM IN Attending Dr: Humberto Diaz [...] in the interim. Patient on chemical prophylaxis post- operatively Lovenox 40mg subQ daily given thin body habitus as [...] of future osteoporotic fragility fractures. In the interim,patient was counseled on bone healing protocol including smoking cessation/ avoidance of nicotine products, appropriate weight bearing restrictions and limitations, and vitamin supplementation to aidin bone and fracture healing/ strengthening. Patient was [...] Code(s): I25.10 - Atherosclerotic heart disease of [place] coronary artery without angina pectoris Status: Acute [...] signed by Ashwini Conrad MD> 05/03/23 1202 [facility] Work Phone: 1(604) 935-490010-22-2023 Progress note Author Sushant Cordon [facility] May 02, 2023 2:35pmNote Date/TimeOct2022 2:[place] [address] Hospitalist Progress Note Signed Patient: Manolo Roche MR#: [id number] : 1935 Acct:[id number] Age/Sex: 88 / M Adm Date: 3 Loc: N Room: [address] [place] [address] Type: ADM IN Attending Dr: Sushant Cordon [...] the operative site of hisright hip today. Hewas able to work with physical therapy and [...] bandage. Dressing is clean and dry and intact.Moderate edema in the leg as expected. Objective [...] mg 04/28/23 17:19 Bisacodyl 10 Mg Supp.Rect IN 04/27/24 17:18 DAILY PRN Constipation Calcium Carbonate [...] Units/3 Ml Insuln.Pen SUBCUT 05/01/24 16:59 TID.WITH.MEALS [facility] Protocol Insulin Glargine 7 units 05/01/23 [...] proximal left anterior descending occlusion and 80% atthe D1. Left circumflex with 50% proximal stenosis and 70%ostial OM1 disease. Iron is mildly low at 45 and iron saturation is mildly low at 13.6. Plan: Continue recovery therapies and rehabilitative therapies after the right hip fracture repair today. Interventional cardiology recommends percutaneous coronary intervention after the patient's surgeryand rehabilitation and recovery. Maximum medical therapy for [...] ready for the acute inpatient rehabilitation unit asof today. All the above was discussed with the patient and his in the room and they are in agreement andhad no additional questions. Documented By: Sushant Cordon DO 3691 Signed By: <Electronically signed by Sushant Cordon DO> 05/02/23 1435 [facility] Work Phone: 1(153) 316-235810-22-2023 Progress note Author Ashwini Conrad [facility] May 02, 2023 2:12pmNote Date/TimeOctober 2022 2:12[place] [address] Orthopedic Progress Note Signed Patient: Manolo Roche MR#: [id number] : 1935 Acct:[id number] Age/Sex: 88 / M Adm Date: 3 Loc: 4N Room: [address] [place] [address] Type: ADM IN Attending Dr: Sushant Cordon [...] MPV Neut % (Auto) Lymph % (Auto) [place] % (Auto) Eos % (Auto) Baso % (Auto) Nucleat RBC Rel Count Neut # (Auto) Lymph # (Auto) [place] # (Auto) Eos # (Auto) Baso # [...] % (Auto) 71.9 Lymph % (Auto) 13.7 [place] % (Auto) 13.5 Eos % (Auto) 0.8 Baso % (Auto) 0.1 Nucleat RBC Rel Count 0.0 Neut # (Auto) 6.2 Lymph # (Auto) 1.2 [place] # (Auto) 1.2 H Eos # (Auto) [...] MPV Neut % (Auto) Lymph % (Auto) [place] % (Auto) Eos % (Auto) Baso % (Auto) Nucleat RBC Rel Count Neut # (Auto) Lymph # (Auto) [place] # (Auto) Eos # (Auto) Baso # (Auto) PHA Creatinine Clear Sodium Potassium Chloride Carbon Dioxide Anion Gap BUN Creatinine Est GFR (CKD-EPI) Glucose POC Glucose 376 POC Glucose Comment Calcium Triglycerides Cholesterol LDL Cholesterol, Calc VLDL Cholesterol HDL Cholesterol Cholesterol/HDL Ratio Assessment / Plan Assessment and plan (1) Two-vessel coronary artery disease: Code(s): I25.10 - Atherosclerotic heart disease of [place] coronary artery without angina pectoris Status: Acute [...] in the interim. Patient on chemical prophylaxis post- operatively Lovenox 40mg subQ daily given thin body habitus as [...] of future osteoporotic fragility fractures. In the interim,patient was counseled on bone healing protocol including smoking cessation/ avoidance of nicotine products, appropriate weight bearing restrictions and limitations, and vitamin supplementation to aidin bone and fracture healing/ strengthening. Patient was [...] signed by Ashwini Conrad MD> 05/02/23 1412 [facility] Work Phone: 1(572) 704-750810-22-2023 Progress note Author Harsh Martines [facility] May 02, 2023 10:49amNote Date/TimeOct2022 10:[place] [id number] Cardiology Progress Note Signed Patient: Manolo Roche MR#: [id number] : 1935 Acct:[id number] Age/Sex: 88 / M Adm Date: 3 Loc: 4N Room: [id number] Type: ADM IN Attending Dr: Sushant Cordon DO Copies to: ~ Date of Service: 05/02/2023 Subjective Principal diagnosis: Elevated troponin, fractured hip Interval history: Patient had uncomplicated surgery and feels well. Patient is noted to be hypertensive in stage II, heart rate 59 bpm. Currently has no complaints. Aspirin was added and will add valsartan 80 mg dailyfor hypertension and LV systolic dysfunction. Intervention regarding CAD is to be determined by her primary hr operations advisor and Dr. Davis Exam Physical Exam Vital [...] MPV Neut % (Auto) Lymph % (Auto) [place] % (Auto) Eos % (Auto) Baso % (Auto) Nucleat RBC Rel Count Neut # (Auto) Lymph # (Auto) [place] # (Auto) Eos # (Auto) Baso # [...] % (Auto) 71.9 Lymph % (Auto) 13.7 [place] % (Auto) 13.5 Eos % (Auto) 0.8 Baso % (Auto) 0.1 Nucleat RBC Rel Count 0.0 Neut # (Auto) 6.2 Lymph # (Auto) 1.2 [place] # (Auto) 1.2 H Eos # (Auto) [...] MPV Neut % (Auto) Lymph % (Auto) [place] % (Auto) Eos % (Auto) Baso % (Auto) Nucleat RBC Rel Count Neut # (Auto) Lymph # (Auto) [place] # (Auto) Eos # (Auto) Baso # [...] Code(s): I25.10 - Atherosclerotic heart disease of [place] coronary artery without angina pectoris Status: Acute [...] coronary intervention Documented By: Harsh Martines MD, [facility] 3 1047 Signed By: <Electronically signed by MD JOAO Martines> 05/02/23 1049 [facility] Work Phone: 1(563) 411-809310-21-2023 Progress note Author Sushant Cordon [facility] May 01, 2023 3:13pmNote Date/TimeOct2022 3:09[place] [address] Hospitalist Progress Note Signed Patient: Manolo Roche MR#: [id number] : 1935 Acct:[id number] Age/Sex: 88 / M Adm Date: 3 Loc: 4N Room: [address] [place] [address] Type: ADM IN Attending Dr: Sushant Cordon [...] Denies any headache or any lightheadedness. His Chase catheter was removed earlier today. He chelo [...] bandage. Dressing is clean and dry and intact.Moderate edema in the leg as expected. Objective [...] mg 04/28/23 17:19 Bisacodyl 10 Mg Supp.Rect IN 04/27/24 17:18 DAILY PRN Constipation Calcium Carbonate [...] Insuln.Pen SUBCUT 04/27/24 21:59 Not Given TID.WM.HS [facility] Protocol Insulin Glargine 7 units 05/01/23 [...] proximal left anterior descending occlusion and 80% atthe D1. Left circumflex with 50% proximal stenosis and 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 Iron is mildly low at 45 and iron saturation is mildly low at 13.6. Plan: Continue recovery therapies and rehabilitative therapies after the right hip fracture repair today. Interventional cardiology recommends percutaneous coronary intervention after the patient's surgeryand rehabilitation and recovery. Maximum medical therapy with aspirin, Plavix, and Lipitor 80 mg daily may also be appropriate. Patient is not a candidate for beta-blockers due to relatively low heart rate at baseline. Documented By: Sushant Cordon DO 1504 Signed By: <Electronically signed by Sushant Cordon DO> 05/01/23 1513 [facility] Work Phone: 1(482) 552-516610-21-2023 Progress note Author Harsh Martines [facility] May 01, 2023 12:24pmNote Date/TimeOct2022 12:21pm[place] [address] Cardiology Progress Note Signed Patient: Manolo Roche MR#: [id number] : 1935 Acct:[id number] Age/Sex: 88 / M Adm Date: 3 Loc: 4N Room: [id number] Type: ADM IN Attending Dr: Sushant Cordon [...] MPV Neut % (Auto) Lymph % (Auto) [place] % (Auto) Eos % (Auto) Baso % (Auto) Nucleat RBC Rel Count Neut # (Auto) Lymph # (Auto) [place] # (Auto) Eos # (Auto) Baso # [...] MPV Neut % (Auto) Lymph % (Auto) [place] % (Auto) Eos % (Auto) Baso % (Auto) Nucleat RBC Rel Count Neut # (Auto) Lymph # (Auto) [place] # (Auto) Eos # (Auto) Baso # [...] MPV Neut % (Auto) Lymph % (Auto) [place] % (Auto) Eos % (Auto) Baso % (Auto) Nucleat RBC Rel Count Neut # (Auto) Lymph # (Auto) [place] # (Auto) Eos # (Auto) Baso # [...] MPV Neut % (Auto) Lymph % (Auto) [place] % (Auto) Eos % (Auto) Baso % (Auto) Nucleat RBC Rel Count Neut # (Auto) Lymph # (Auto) [place] # (Auto) Eos # (Auto) Baso # [...] % (Auto) 68.2 Lymph % (Auto) 16.8 [place] % (Auto) 14.1 Eos % (Auto) 0.6 Baso % (Auto) 0.3 Nucleat RBC Rel Count 0.1 Neut # (Auto) 6.0 Lymph # (Auto) 1.5 [place] # (Auto) 1.2 H Eos # (Auto) [...] MPV Neut % (Auto) Lymph % (Auto) [place] % (Auto) Eos % (Auto) Baso % (Auto) Nucleat RBC Rel Count Neut # (Auto) Lymph # (Auto) [place] # (Auto) Eos # (Auto) Baso # [...] Code(s): I25.10 - Atherosclerotic heart disease of [place] coronary artery without angina pectoris Status: Acute Plan: Add aspirin and continue statin. At one point in time in the near future coronary intervention willbe scheduled. Due to bradycardia we will not [...] coronary intervention Documented By: Harsh Martines MD, [facility] 3 1220 Signed By: <Electronically signed by MD JOAO Martines> 05/01/23 1224 [facility] Work Phone: 1(884) 392-591010-21-2023 Progress note Author Ashwini Conrad [facility] May 01, 2023 11:31amNote Date/TimeOctober 2022 11:31[place] [address] Orthopedic Progress Note Signed Patient: Manolo Roche MR#: [id number] : 1935 Acct:[id number] Age/Sex: 88 / M Adm Date: 3 Loc: 4N Room: [address] [place] [address] Type: ADM IN Attending Dr: Sushant Cordon [...] % (Auto) 79.2 Lymph % (Auto) 5.9 [place] % (Auto) 14.6 Eos % (Auto) 0.0 Baso % (Auto) 0.3 Nucleat RBC Rel Count 0.1 Neut # (Auto) 7.4 Lymph # (Auto) 0.6 L [place] # (Auto) 1.4 H Eos # (Auto) [...] MPV Neut % (Auto) Lymph % (Auto) [place] % (Auto) Eos % (Auto) Baso % (Auto) Nucleat RBC Rel Count Neut # (Auto) Lymph # (Auto) [place] # (Auto) Eos # (Auto) Baso # [...] MPV Neut % (Auto) Lymph % (Auto) [place] % (Auto) Eos % (Auto) Baso % (Auto) Nucleat RBC Rel Count Neut # (Auto) Lymph # (Auto) [place] # (Auto) Eos # (Auto) Baso # [...] MPV Neut % (Auto) Lymph % (Auto) [place] % (Auto) Eos % (Auto) Baso % (Auto) Nucleat RBC Rel Count Neut # (Auto) Lymph # (Auto) [place] # (Auto) Eos # (Auto) Baso # [...] MPV Neut % (Auto) Lymph % (Auto) [place] % (Auto) Eos % (Auto) Baso % (Auto) Nucleat RBC Rel Count Neut # (Auto) Lymph # (Auto) [place] # (Auto) Eos # (Auto) Baso # [...] % (Auto) 68.2 Lymph % (Auto) 16.8 [place] % (Auto) 14.1 Eos % (Auto) 0.6 Baso % (Auto) 0.3 Nucleat RBC Rel Count 0.1 Neut # (Auto) 6.0 Lymph # (Auto) 1.5 [place] # (Auto) 1.2 H Eos # (Auto) [...] MPV Neut % (Auto) Lymph % (Auto) [place] % (Auto) Eos % (Auto) Baso % (Auto) Nucleat RBC Rel Count Neut # (Auto) Lymph # (Auto) [place] # (Auto) Eos # (Auto) Baso # [...] SCDs in the interim. Patienton chemical prophylaxis post- operatively Lovenox 40 mg subQ daily given thin [...] of future osteoporotic fragility fractures. In the interim,patient was counseled on bone healing protocol including smoking cessation/ avoidance of nicotine products, appropriate weight bearing restrictions and limitations, and vitamin supplementation to aidin bone and fracture healing/ strengthening. Patient was [...] Code(s): I25.10 - Atherosclerotic heart disease of [place] coronary artery without angina pectoris Status: Acute [...] signed by Ashwini Conrad MD> 05/01/23 1131 [facility] Work Phone: 1(315) 869-477510-20-2023 Progress note Author Sushant Cordon [facility] April 30, 2023 9:13pmNote Date/TimeOct2022 9:13[place] [address] Hospitalist Progress Note Signed Patient: Manolo Roche MR#: [id number] : 1935 Acct:[id number] Age/Sex: 88 / M Adm Date: 3 Loc: 4N Room: [id number] Type: ADM IN Attending Dr: Sushant Cordon [...] He denies any upset stomach. No chest painor pressure. He understands the report from the [...] bandage. Dressing is clean and dry and intact.Moderate edema in the leg as expected. Objective [...] mg 04/28/23 17:19 Bisacodyl 10 Mg Supp.Rect IN 04/27/24 17:18 DAILY PRN Constipation Calcium Carbonate [...] Mg/0.4 Ml Syringe SUBCUT 04/30/24 09:59 DAILY@1000 [facility] Glucose 0 gm 04/28/23 17:14 04/30/23 [...] Lactated Ringers IV 04/29/24 16:44 Not Given .[id number] [facility] Cefazolin Sodium 1 gm in 50 mls [...] proximal left anterior descending occlusion and 80% atthe D1. Left circumflex with 50% proximal stenosis and 70%ostial OM1 disease. Iron is mildly low at 45 and iron saturation is mildly low at 13.6. Plan: Continue recovery therapies and rehabilitative therapies after the right hip fracture repair today. Interventional cardiology recommends percutaneous coronary intervention after the patient's surgeryand rehabilitation and recovery. Progressively maximized on beta-sarah and lisinopril medical therapies in the timeframe after surgery. I will increase long-acting and short acting insulin as patient is now eating well and will have higher blood sugars. Documented By: Sushant Cordon DO 2108 Signed By: <Electronically signed by Sushant Cordon DO> 04/30/232112 [facility] Work Phone: 1(753) 334-558110-20-2023 Hospital Discharge instructions Additional Instructions Rehab to [...] high armed straight-backed chair. 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 -Continue to use walker or [...] OTHER -Any problems- Call the office at [phone] or return to Emergency Room. -If you are having excessive or persistent pain, swelling, fever (oral temp >101), yellow-green foul smelling drainage or bleeding from incision, excessive redness of incision, nausea, vomiting, or any other problems, you should first call your surgeon at [phone] for advice. If you are unable to contact your surgeon, seek help from a hospital emergency room. FOLLOW UP -Call my office the first business day after discharge and ask for assistance with post-discharge plans, and appointments.[facility] Work Phone: 1(961) 784-695010-20-2023 Progress note Author Anat Perez [facility] April 30, 2023 10:32amNote Date/TimeOct2022 10:[address]am[address] [address] Cardiology Progress Note Signed Patient: Manolo Roche MR#: [id number] : 1935 Acct:[id number] Age/Sex: 88 / M Adm Date: 3 Loc: 4N Room: 0R3831-3 Type: ADM IN Attending Dr: Sushant Cordon DO Copies to: ~ Date of Service: 04/30/2023 Subjective Interval history: Mr. Roche is a 88 year old male with [...] mild troponin elevation in a flattrend. BNP elevatedat 665. EKG showed normal sinus rhythm with T wave inversions in V3 to V6. Cardiology was consultedfor preop risk stratification priorto hip surgery. Patient [...] events overnight. Denies chest pain or dyspnea. [facility] scheduledfor this AM (findings as below) Exam Physical [...] MPV Neut % (Auto) Lymph % (Auto) [place] % (Auto) Eos % (Auto) Baso % (Auto) Nucleat RBC Rel Count Neut # (Auto) Lymph # (Auto) [place] # (Auto) Eos # (Auto) Baso # [...] MPV Neut % (Auto) Lymph % (Auto) [place] % (Auto) Eos % (Auto) Baso % (Auto) Nucleat RBC Rel Count Neut # (Auto) Lymph # (Auto) [place] # (Auto) Eos # (Auto) Baso # [...] % (Auto) 60.6 Lymph % (Auto) 22.0 [place] % (Auto) 16.4 Eos % (Auto) 0.6 Baso % (Auto) 0.4 Nucleat RBC Rel Count 0.1 Neut # (Auto) 5.4 Lymph # (Auto) 2.0 [place] # (Auto) 1.5 H Eos # (Auto) [...] MPV Neut % (Auto) Lymph % (Auto) [place] % (Auto) Eos % (Auto) Baso % (Auto) Nucleat RBC Rel Count Neut # (Auto) Lymph # (Auto) [place] # (Auto) Eos # (Auto) Baso # [...] MPV Neut % (Auto) Lymph % (Auto) [place] % (Auto) Eos % (Auto) Baso % (Auto) Nucleat RBC Rel Count Neut # (Auto) Lymph # (Auto) [place] # (Auto) Eos # (Auto) Baso # [...] hip fracture. He was found to have EKGchanges and elevated troponin. Cardiology was consulted for [...] 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 - Discussed with black top roller- Dr Davis regarding timing of intervention- given that pt did not have [place] on presentation and was very functional prior to hip fracture with no cardiac limitations, will plan to do PCI after surgery and rehab. - [place] Activity Status Index of 50.7 (Achieves 8 METS); RCRI score of 2 (Class III risk-10.1% 30dayrisk of MACE) - Pt is undergoing low risk surgery-May proceed with R hip ORIF this afternoon - Cardiology will be available perioperatively. - Will start ASA, statin, BB and Lisinopril after surgery. Documented By: Anat Perez MD 04/30/23 1023 Signed By: <Electronically signed by Anat Perez MD> 04/30/23 1032 [facility] Work Phone: 1(798) 193-495410-20-2023 [facility] Progress note Author Sushant Cordon [facility] April 29, 2023 6:28pmNote Date/TimeOct2022 6:[place] [address] Hospitalist Progress Note Signed Patient: Manolo Roche MR#: [id number] : 1935 Acct:[id number] Age/Sex: 88 / M Adm Date: 3 Loc: 4N Room: [address] [place] [address] Type: ADM IN Attending Dr: Sushant Cordon [...] ejection fraction of 40 to 45% with severeanterior wall hypokinesis. He did have an ventricular [...] mg 04/28/23 17:19 Bisacodyl 10 Mg Supp.Rect IN 04/27/24 17:18 DAILY PRN Constipation Calcium Carbonate [...] Dextrose-Lactated Ringers IV 04/27/24 17:14 125 mls/hr .[id number] TAVIA Administration Lactated Ringer's 1,000 mls @ [...] <Electronically signed by Sushant Cordon DO> 04/29/231827 [facility] Work Phone: 1([phone]) 124-731610-19-2023 Consult note Author Anat Perez [facility] April 29, 2023 5:34pmNote Date/TimeOct2022 5[place] [address] Cardiology Consult Note Signed Patient: Manolo Roche MR#: [id number] : 1935 Acct:[id number] Age/Sex: 88 / M Adm Date: 3 Loc: 4N Room: [address] [place] [address] Type: ADM IN Attending Dr: Sushant Cordon DO Copies to: DO Anat Cooper MD Robert J Vaschak, DO~ Cardiology HPI History of Present Illness Consult Date: 04/29/23 Reason for Consult: Preop risk stratification HPI: Mr. Roche is a 88 year old male with [...] mild troponin elevation in a flattrend. BNP elevatedat 665. EKG showed normal sinus rhythm with T wave inversions in V3 to V6. Cardiology was consultedfor preop risk stratification prior to hip surgery. [...] negative unless noted below or in HPI [facility] Medical History (Updated 04/29/23 @ 17:34 by [...] pen (Lantus Solostar U-100 Insulin) 18 unit subcutHS 04/28/23 [History Confirmed 04/28/23] ibqutj-cucwbsyr-pbounvs 24,000-76,000-120,000 unit capsule,delayed rel (Creon) 2cap PO TID 04/28/23[History Confirmed 04/28/23] paroxetine HCl 30 mg tablet [...] x10E3/uL Lymph # (Auto) 2.0 (1.00-4.8) x10E3/uL [place] # (Auto) 1.1 H (0.0-0.8) x10E3/uL Eos [...] ,000 ml @ 125 mls/hr IV .Q8H [facility] Rx#:[id number] Oral 0 / 0 0 / 0 Output: Urine Amount (Catheter) 700 / 1450 750 / 1450 Urethral (Chase) 700 / 1450 750 / 1450 Other: [...] hip fracture. He was found to have EKGchanges and elevated troponin. Cardiology was consulted for [...] disease) prior to surgery. -Will plan for [facility] tomorrow for further evaluation/risk stratification. NPO past midnight. Documented By: Anat Perez MD 04/29/231703 Signed By: <Electronically signed by Anat Perez MD> 04/29/23 173 [facility] Work Phone: 1(744) 993-656310-18-2023 Consult note Author Ashwini Conrad [facility] April 28, 2023 6:47pmNote Date/TimeOct2022 6:43pmNatasha Ville [id number] Orthopedic Consult Note Signed Patient: Manolo Roche MR#: [id number] : 1935 Acct:[id number] Age/Sex: 88 / M Adm Date: 3 Loc: 4N Room: 7T6552-1 Type: ADM IN Attending Dr: Sushant Cordon DO Copies to: MD Sushant Carlos DO Robert J Vaschak, DO~ History of Present Illness HPI Consult date: 04/28/2023 Requesting provider: Sushant Cordon DO Consult reason: fracture History of present illness: 88-year-old man admitted with right hip pain and inability to bear weight following mechanical fallfrom standing height. Patient reports that he was [...] negative unless noted below or in HPI [facility] Medical History (Updated 04/28/23 @ 17:35 by [...] pen (Lantus Solostar U-100 Insulin) 18 unit subcutHS 04/28/23 [History Confirmed 04/28/23] ixmnvx-bpgytqgo-vzcootd 24,000-76,000-120,000 unit capsule,delayed rel (Creon) 2cap PO TID 04/28/23[History Confirmed 04/28/23] paroxetine HCl 30 mg tablet [...] & flexion/ elbow extension &flexion/ shoulder forward elevation& abduction LOWER EXTREMITY R LE clinically equal [...] point tenderness distally at the right lower extremityalong the knee, tibia, ankle, and foot Secondary [...] Appearance Clear, Urine pH 6.5, Ur Specific [place] 1.009, Urine Protein Negative, Urine Glucose (UA) Normal, UrineKetones Negative, Urine Occult Blood Negative, Urine Nitrite Negative, Urine Bilirubin Negative, Urine Urobilinogen Normal, Ur Leukocyte Esterase Negative 04/28/23 13:20: B-Natriuretic Peptide 665.0 H 04/28/23 13:20: Troponin I High Sens 35.5 H 04/28/23 13:20: PHA Creatinine Clear 60.38, Sodium 136, Potassium 4.9, Chloride 101, Carbon Iophrcq47.4, Anion Gap 9.5, BUN 15, Creatinine 0.71, Est GFR (CKD- EPI) > 60.0, Glucose 124 H, Calcium 9.0, [...] % (Auto) 75.0, Lymph % (Auto) 14.8, [place] % (Auto) 9.3, Eos % (Auto) 0.5, Baso % (Auto) 0.4, Nucleat RBC Rel Count 0.1, Neut # (Auto)7.3, Lymph # (Auto) 1.4, [place] # (Auto) 0.9 H, Eos # (Auto) 0.0, Baso # (Auto) 0.0, Monocyte Dist Width 18.61 H & H 04/28/23 Range/Units 13:20 Hgb 11.5 L (13.0-17.0) g/dL Hct 34.8 L (38.8-50.0) % Coagulation 04/28/23 Range/Units 13:20 INR 1.0 All other labs are normal. Imaging & Diagnostic Results Imaging/Diagnostics: XRAY ([facility] 04/28/2023) Right FEMUR/RIGHT HIP/PELVIS: AP of the pelvis as well as AP and lateral of the right hip and femurreviewed. Images demonstrates a nondisplaced fracture throughout the [...] when pain control allows, along with incentive spirometryto decrease risk of pneumonia, anticoagulation and SCDs [...] risks including but not limited to: infection, raquel- prosthetic fracture, and implantdislocation. In general, despite surgical treatment, patients can [...] rate, reaching upwards of 30% in hospital mortalityrate for patients with dementia, in addition to [...] <Electronically signed by Ashwini Conrad MD> 04/28/231846 [facility] Work Phone: 1(353) 907-795210-18-2023 History and physical note Author Sushant Cordon [facility] April 28, 2023 5:40pmNote Date/TimeOct2022 5:40[place] [address] Hospitalist H&P Signed Patient: Manolo Roche MR#: [id number] : 1935 Acct:[id number] Age/Sex: 88 / M Adm Date: 3 Loc: Room: 6L5867-0 Type: ADM IN Attending Dr: Sushant Cordon DO Copies to: DO Marie Cooper DO~ HPI DATE OF EXAMINATION: 04/28/23 CHIEF COMPLAINT: right hip pain after a fall. HISTORY OF PRESENT ILLNESS: This is an extraordinarily pleasant 89-year-old man who had a mechanical fall today associated withhypoglycemia. In the emergency room he was found [...] An initial EKG in the emergency room, technicallyof poor quality, did show markedST abnormality, possible [...] which is owned by his family members. Helpsdo all of the lawn care in his [...] for a total pancreatectomy performed at the [facility] in [facility] about [...] had what sounds like an EGD in [place] about 15 months ago with what sounds like some gastritis. Otherwise his past medical history seems to include prostate hypertrophy. Social history: He does smoke a cigar daily after dinner. In the past he smoked0.25 of a pack per day of cigarettes. He does drink wine daily with dinner. Heis mainly retired from [employer] here in [place]. 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 Family history: A sister of an unspecified cancer. Another sibling ofwhat sounds like acute leukemia. Review of Systems Review of Systems Review of systems: 10 systems are reviewed and are negative except as mentioned elsewhere in the documentation. [facility] Medical History (Updated 04/28/23 @ 17:35 by [...] pen (Lantus Solostar U-100 Insulin) 18 unit subcutHS 04/28/23 [History Confirmed 04/28/23] kwdzwy-eayusbol-lauzbfb 24,000-76,000-120,000 unit capsule,delayed rel (Creon) 2cap PO TID 04/28/23[History Confirmed 04/28/23] paroxetine HCl 30 mg tablet [...] 13:20 Uncorrected WBC Count 9.7 x10E3/uL (4.1-10.5) 10/18/23 13:20 RBC 4.12 X10E6/uL (3.90-5.60) 04/28/23 13:20 [...] % (Auto) 14.8 % (.) 04/28/23 13:20 [place] % (Auto) 9.3 % (.) 04/28/23 13:20 Eos % (Auto) 0.5 % (.) 04/28/23 13:20 Baso % (Auto) 0.4 % (.) 04/28/23 13:20 Nucleat RBC Rel Count 0.1 /100 WBC (0-0.5) 04/28/23 13:20 Neut # (Auto) 7.3 x10E3/uL (1.8-7.7) 04/28/23 13:20 Lymph # (Auto) 1.4 x10E3/uL (1.00-4.8) 04/28/23 13:20 [place] # (Auto) 0.9 x10E3/uL (0.0-0.8) H 04/28/23 [...] pH 6.5 (5.0-9.0) 04/28/23 15:00 Ur Specific [place] 1.009 (1.001-1.030) 04/28/23 15:00 Urine Protein Negative [...] his case with me in order to follow-uptroponin. His troponin is gone from 35.5 up to 38.8. But he does have a B-type natriuretic peptide elevated at 665. I did order an echocardiogram but the echocardiogram licensed psychiatric technician has likely gone home for the day. In my opinion the first EKG that was done the emergency room has too much background noise to be interpretable and should be ignored. A second EKG also had a lot of electrical noise andwas read by the computer as atrial fibrillation [...] rest and suffering from hip pain. A Chase catheter was placed by the emergency room. [...] I have ordered a hemoglobin A1c and fructosamineto evaluate his recent and 3-month glycemic control. He does have a mild anemia. I am ordering a type and screen and then iron labs and vitamin B12 labsto be done before surgery. IP vs OBS Justification Based on differential dx, clinical care plan, and risk of adverse events, if untreated, in my clinical judgement this patient requires an acute care setting as: INPATIENT because of an expectation ofan over 2 midnight stay. Estimated length of stay (# of days): 5 Documented By: Sushant Cordon DO 1725 Signed By: <Electronically signed by Sushant Cordon DO> 04/28/23 1740 [facility] Work Phone: 1(860) 970-688210-01-2023 Chief complaint+Reason for visit Narrative * Chief Complaint GI Bleed Fall GI Bleed Fall GI Bleed Fall GI Bleed Fall c spine fx nick,gi ulcer referral cervical follow up seen in pt/egd.lewis's esophagus 04/2023 [facility] dc Cath/PCIReason for VisitCAD (coronary artery disease) Fracture of C5 vertebra, closed Vertebral fracture, closed Barretts esophagus H pylori ulcer Helicobacter pylori (H. pylori) Barretts esophagus CAD (coronary artery disease) H pylori ulcer Helicobacter pylori (H. pylori) Hypertension [id number] Stomach ulcer [facility] Work Phone: 1(119) 404-889306-29-2022 History of Present illness Narrative* Courtney Singh - 01/07/2022 12:25 PM EDT CLINICAL PHARMACY NOTE: MEDS TO BEDS Total # of Prescriptions Filled: 3 The following medications were delivered to the patient: Sucralfate susp Amlodipine Pantoprazole Additional Documentation: Pharmacy dispensed all we had of the Sucralfate susp- will transfer the rest to the [facility] in [place], [place] $8.61 collected via [employer] * Jose Roberto Peñaloza MD - 01/06/2022 8:56 AM EDT Images from the original note were not included. PROGRESS NOTE PATIENT NAME: Manolo Roche DATE: 01/06/2022 SURGEON: Dr Carrion PRIMARY CARE PHYSICIAN: No primary care provider [...] cc home pump insulin PT/OT SUBJECTIVE Manolo Roche seen and examined at bedside. resting comfortably, [...] INR in the last 72 hours. Viki Donovan, 01/03/22, 8:56 AM Attestation signed by Jose Roberto Peñaloza MD I personally evaluated the patient and directed the medical decision making with Resident/ELIANE afterthe physical/radiologic exam and laboratory values were reviewed and confirmed. UGI ok, slowly advance diet. Jose Roberto Peñaloza MD * Tj Kate, DO - 01/06/2022 7:30 AM EDT Bariatric Surgery: Daily Progress Note PATIENT NAME: Manolo Roche TODAY'S DATE: 01/06/2022, 7:30 AM CC: doing [...] Surgery: Daily Progress Note PATIENT NAME: Manolo Roche TODAY'S DATE: 01/05/2022, 7:15 AM CC: doing [...] not included. PROGRESS NOTE PATIENT NAME: Manolo Roche DATE: 01/04/2022 SURGEON: Dr Carrion PRIMARY CARE PHYSICIAN: No primary care provider [...] home pump insulin 11. PT/OT SUBJECTIVE Manolo Kaley seen and examined at bedside. AF, htn to 180s this am. Asymptomatic, resting comfortably, pain controlled. Voided after chase removal. OBJECTIVE VITALS: Temp: Temp: 98.8 F [...] 292 245 BMP: Recent Labs 01/03/22 1436 01/03/229 01/04/22 0150 NA 136 135 136 K [...] Surgery: Daily Progress Note PATIENT NAME: Manolo Roche TODAY'S DATE: 01/04/2022, 7:29 AM CC: feeling [...] medical management per trauma team * Judi Quintanayan, OT - 01/03/2022 3:25 PM EDT Occupational Therapy Facility/Department: [address] Occupational Therapy Initial Assessment Name: Manolo Roche : 1935 Date of Service: 01/03/2022 Chief Complaint Patient presents with Abdominal Pain ulcer Discharge Recommendations: Patient would benefit from continued therapy after discharge OT Equipment Recommendations Equipment Needed: Yes Mobility Devices: ADL Assistive Devices ADL Assistive Devices: Paedodontist;Long-handled Sponge;Long-handled Shoe Horn;Sock- Aid Hard;Grab Bars -shower [...] / Caregiver Present: No General Comment Comments: KARIN ok'd for OT/PT alne this AM. Pt agreeable to session, pleasent/cooperative [...] Ambulation Assistance: Independent Transfer Assistance: Independent Active Screen Printing Loader Unloader: Yes Mode of Transportation: [facility] Occupation: Retired Type of Occupation: Reports he has retired 4-5 times. Works on [employer] sometimes now debo wants. [employer]. Use to work for [employer]. Leisure & Hobbies: [employer] Additional Comments: 3-4 weeks post open heart [...] 0-100% Score: 42.8 (01/03/22 152) ADL Inpatient CMS G-Code Modifier : CK [...] 01/03/2022 12:40 PM EDT Physical Therapy Facility/Department: [address] [place] Physical Therapy Initial Assessment Name: Manolo Roche : 1935 Date of Service: 01/03/2022 Chief [...] Ambulation Assistance: Independent Transfer Assistance: Independent Active Screen Printing Loader Unloader: Yes Mode of Transportation: SUV Occupation: Retired Type of Occupation: Reports he has retired 4-5 times. 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 Use to [...] Surgery: Daily Progress Note PATIENT NAME: Manolo Roche TODAY'S DATE: 01/03/2022, 8:06 AM CC: feeling [...] not included. PROGRESS NOTE PATIENT NAME: Manolo Roche DATE: 01/03/2022 SURGEON: Dr Carrion PRIMARY CARE PHYSICIAN: No primary care provider on file. 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 Vital signs [...] 452* 81 176* COAGS: Recent Labs 01/02/22 185 PROT 6.4 INR 1.2 Breana Johnson MD 01/03/22, 7:51 AM Attestation signed by Jose Roberto Peñaloza MD I personally evaluated the patient and directed the medical decision making with Resident/ELIANE afterthe physical/radiologic exam and laboratory values were reviewed and confirmed. Feeling better, to bring in insulin pump. Jose Roberto Peñaloza MD * Queta Geiger RN - 01/03/2022 12:19 AM EDT Assessment forms from [facility] note that pt stated he has bed bugs at home and although they have treated the house, they have not been able to get rid of them. Pt did not have any belongings transferred with him from the OR. [facility] Work Phone: chief complaint+Reason for visit Narrative* Chief Complaint bp check I25.10 E61.1,K92.2 2 weeks bp 6 weeks evaluation for ICD evaluation for ICD HFC BP WITH ORTHO CardiomyopathyReason for VisitIron deficiency Ischemic cardiomyopathy Ischemic cardiomyopathy Ischemic cardiomyopathy Acute GI bleeding Ischemic cardiomyopathy [id number] Sinus bradycardia H pylori ulcer Iron deficiency Ischemic cardiomyopathy [id number] Ischemic cardiomyopathy [facility] Work Phone: Consult note Author Tru Yap [facility] May 03, 2023 3:17pmNote Date/TimeOct2022 2:[place] [address] Physiatry (Rehab) Consult Note Signed Patient: Manolo Roche MR#: [id number] : 1935 Acct:[id number] Age/Sex: 88 / M Adm Date: 3 Loc: 4N Room: 4M4198-2 Type: ADM IN Attending Dr: Humberto Diaz MD Copies to: MD Humberto Mendieta MD Robert J Vaschak, DO~ Etiologic Dx/Impairment Group Narrative Narrative: 02.19 HPI Consult Date: 05/03/23 Requesting Physician: Humberto Diaz MD Primary Care Provider: Marie Tejeda DO Consult Narrative Reason for consult: hip fracture s/p TFN HPI: Mr. Roche is a 88 year old male with [...] negative unless noted below or in HPI [facility] Medical History BPH (benign prostatic hyperplasia) Diabetes [...] pen (Lantus Solostar U-100 Insulin) 18 unit subcutHS 04/28/23 [History Confirmed 04/28/23] tfzjcq-camzlgvd-xwaisga 24,000-76,000-120,000 unit capsule,delayed rel (Creon) 2cap PO TID 04/28/23[History Confirmed 04/28/23] paroxetine HCl 30 mg tablet [...] bisacodyl 10 mg rectal suppository 10 mg IN DAILY PRN Constipation #0 ea 05/03/23 [Rx] bisacodyl 5 mg tablet,delayed release 10 mg PO DAILY PRN Constipation #0 tabs 05/03/23 [Rx] calcium carbonate 500 mg-vitamin D3 5 mcg (200 unit) tablet (Oyster Shell Calcium-Vitamin D3) 1 tabPO TID.WITH.MEALS #0 tabs 05/03/23 [Rx] enoxaparin 40 [...] (Novolog FlexPen U-100 Insulin aspart) SeeProtocol subcut TID.WITH.MEALS #0 mL 05/03/23 [Rx] insulin [...] Magnesia) 30 ml PO BID PRN Constipation #0mL 05/03/23 [Rx] nitroglycerin 0.4 mg sublingual tablet [...] and obtained and summated medical records and haveordered follow up lab tests and imaging studies as needed for rehabilitation care. Assessment/Plan (1) Two-vessel coronary artery disease: Code(s): I25.10 - Atherosclerotic heart disease of [place] coronary artery without angina pectoris Status: Acute [...] in unspecified hip Status: Acute Plan Mr. Roche is a 88 year old male with [...] at least 3 times weekly encounters with tungsten tender for medical management and for plan of care review / changes. Plan: I completed a substantive portion of this encounter, the medical decision making portion of this note in its entirety, including Allied health note review, nursing note review, data integrity consultant note review, discussion with nursing and case management, and more than 50% of my time was spent on counseling and coordination of care, time spent 65 minutes Patient was personally seen by me, Dr. Yap, on the day of encounter, reviewed the history and therelevant portions of the chart, including current orders, allied health and data integrity consultant notes, labs/imaging and performed smyth elements of exam and I formulated the plan of care and facilitated the medical decision making. Documented By: Tru Yap MD 05/03/23 1451 Signed By: <Electronically signed by Tru Yap MD> 05/03/23 4232 [facility] Work Phone: Consult note Author Chuck Velasco [facility] CenterNote Date/TimeJanuary 2024 4:52pm[place] [address] Cardiology Consult Note Signed Patient: Manolo Roche MR#: [id number] : 1935 Acct:[id number] Age/Sex: 89 / M Adm Date: 5 Loc: N Room: [address] [place] [address] Type: ADM INOo Attending Dr: Lisa Hidalgo MD Copies to: MD Lisa Varner MD Robert J Vaschak,DO~ Cardiology HPI History of Present Illness Consult Date: 07/17/24 Reason for Consult: Chest pain HPI: Mr. Roche is a 89 year old male with [...] negative unless noted below or in HPI [facility] Medical History Type 1 diabetes mellitus CAD (coronary artery disease) Former smoker BPH (benign prostatic hyperplasia) Urinary frequency Cardiomyopathy wearing external defib Coronary artery disease involving [place] coronary artery of [place] heart withoutangina pectoris GI bleeding Dupuytren's contracture [...] days #30 tabs 05/07/23 [Rx Confirmed 07/16/24] mgrgdr-pilknwbd-rihheuu 24,000-76,000-120,000 unit capsule,delayed rel (Creon) 2cap PO [...] tab PO DAILY 10/26/23 [History Confirmed 07/16/24] dzzpnz-ecukclfq-kvvraus 24,000-76,000-120,000 unit capsule,delayed rel (Creon) 1cap PO [...] # (Auto) N/A Lymph # (Auto) N/A [place] # (Auto) N/A Eos # (Auto) N/A [...] Code(s): I25.10 - Atherosclerotic heart disease of [place] coronary artery without angina pectoris (4) S/P [...] H/o PUD, BPH, Anxiety, depression. Current smoker. [facility] 04/30/23 - Two-vessel coronary artery disease- 100% prox LAD occlusion; 80% D1; LCx has 50% prox stenosis with 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 Echo 04/28/23 - EF 40-45%, mild LVH, trace MR and TR. [facility] 07/16/22 - Successful PCI ostial/proximal LAD-diagonal branch; true LADLE HANDLER proximal/mid LAD (attempted wiring with balloon). ECHO in January 2024 at [facility]: EF 30-35% ECHO 03/09/2024: ECHO which showed [...] call with any questions. Follow up with [facility] Cardiology as scheduled. Documented By: Chuck Velasco MD 01/03 1637 Signed By: <Electronically signed by Chuck Velasco MD> 07/17/24 1652 [facility] Work Phone: Discharge summary Author Humberto Diaz [facility] May 03, 2023 2:54pmNote Date/TimeOct2022 2:39pmBurb[place] [address] Discharge Summary Signed Patient: Manolo Roche MR#: [id number] : 1935 Acct:[id number] Age/Sex: 88 / M Adm Date: 3 Loc: 4N Room: 6B9253-[address]: Humberto Diaz MD Copies to: MD Marie Ambrose,DO~ Providers Date of Discharge: 05/03/23 Discharging Provider: Humberto Diaz Primary Care Provider: Marie Tejeda Consults: 04/28/23 17:14 Consult to Cardiology Routine [...] history of diabetes mellitus presented to the emergencyroom after mechanical fall due to hypoglycemia. The ER he was found to have right intertrochantericfracture and was admitted for further management. In the ER his labs showed elevated troponin with EKG changes. Cardiology was consulted with echocardiogram showing EF of 40 to 45%. He underwent cardiac catheterization which showed two-vessel disease plan for intervention in 6 weeks. He was clearedfor the surgery underwent ORIF without any complication. He will be discharged on aspirin, statin and valsartan with plan for outpatient cardiology follow-up.. Not on beta-sarah due to heart rate on the lower side. Carb coverage added with basal insulin and sliding scale coverage for better diabetic control. Patient recently started seeing and was started on long-acting insulin sincehis Dexcom G6 was not working properly on insulin pump. Plan was to restart insulin pump with newerG7 sensor. Will recommend outpatient follow-up with Dr. [...] 08:45 Actual Procedures p CL [facility] Vicente Perez MD Operation Date: 04/30/23 15:30 Actual [...] Discharge Plan Discharge Plan Patient Disposition: Rehab [facility] Diet: Diabetic Additional Instructions: Rehab to manage: [...] high armed straight-backed chair. 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 -Continue to use walker or [...] OTHER -Any problems- Call the office at [phone] or return to Emergency Room. -If you are having excessive or persistent pain, swelling, fever (oral temp >101), yellow-green foul smelling drainage or bleeding from incision, excessive redness of incision, nausea, vomiting, or any other problems, you should first call your surgeon at [phone] for advice. If you are unable to [...] 0RF bisacodyl 10 mg Suppository 10 mg IN DAILY PRN (Reason: Constipation) Qty: 0 0RF [...] (call at discharge from Rehab to see Respiratory Clinician for future ANGIOPLASTY PROCEDURE) Marie Tejeda DO [Primary Care Provider] - (Please call [...] <Electronically signed by Humberto Diaz MD> 05/03/23 7154 [facility] Work Phone: Discharge summaryNatasha Ville [id number] Discharge Summary Signed Patient: Manolo Roche MR#: [id number] : 1935 Acct:[id number] Age/Sex: 89 / M Adm Date: 5 Loc: 4N Room: 1Q4958-[address]: Lisa Hidalgo MD Copies to: MD Marie Knapp DO~ Providers Date of Discharge: 07/17/24 Discharging Provider: Lisa Hidalgo Primary Care Provider: Marie Tejeda Consults: 07/17/24 00:31 Consult to Occupational Therapy [...] pain Summary Hospital Course Hospital course: Mr. Roche is an 89-year-old male with PMH of [...] 40-45%, mild LVH, trace MR and TR. [facility] 07/16/22 - Successful PCI ostial/proximal LAD-diagonal branch; true LADLE HANDLER proximal/mid LAD (attempted wiring with balloon). ECHO in January 2024 at [facility]: EF 30-35% ECHO 03/09/2024: ECHO which showed [...] call with any questions. Follow up with [facility] Cardiology as scheduled. Patient was [...] 1 tab PO DAILY Follow Up: Marie Tejeda DO [Primary Care Provider] - 07/20/24 1:00 [...] Lisa Hidalgo MD 07/18/241899 Signed By: 07/18/241901 [facility] Center[facility] summary Author Lisa Hidalgo [facility] CenterNote Date/TimeJanuary 2024 7:02pm[place] [address] Discharge Summary Signed Patient: Manolo Roche MR#: [id number] : 1935 Acct:[id number] Age/Sex: 89 / M Adm Date: 5 Loc: 4N Room: 3J2000-[address]: Lisa Hidalgo MD Copies to: MD Marie Knapp DO~ Providers Date of Discharge: 07/17/24 Discharging Provider: Lisa Hidalgo Primary Care Provider: Marie Tejeda Consults: 07/17/24 00:31 Consult to Occupational Therapy [...] pain Summary Hospital Course Hospital course: Mr. Roche is an 89-year-old male with PMH of [...] homeas disposition. Cardiology consulted, recommended to follow: [facility] 04/30/23 - Two-vessel coronary artery disease- 100% prox LAD occlusion; 80% D1; LCx has 50% prox stenosis with 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 Echo 04/28/23 - EF 40-45%, mild LVH, trace MR and TR. [facility] 07/16/22 - Successful PCI ostial/proximal LAD-diagonal branch; true LADLE HANDLER proximal/mid LAD (attempted wiring with balloon). ECHO in January 2024 at [facility]: EF 30-35% ECHO 03/09/2024: ECHO which showed [...] call with any questions. Follow up with [facility] Cardiology as scheduled. Patient was [...] 1 tab PO DAILY Follow Up: Marie Tejeda DO [Primary Care Provider] - 07/20/24 1:00 [...] By: <Electronically signed by Lisa Hidalgo MD> 07/18/241901 [facility] Work Phone: Evaluation + Plan note No data available for this section [facility] Evaluation + Plan note Future Appointments Appointment Date:05/22/2025 01:00:00 PM Scheduled Provider: Location:[facility] Appointment Type:Urology CALL PAT FT Appointment Date:05/24/2025 10:00:00 AM Scheduled Provider: Location:[facility] Appointment Type:Urology FT Appointment Date:05/24/2025 11:00:00 AM Scheduled Provider: Location:[facility] Appointment Type:Urology FT [facility] Evaluation note* Diagnosis Perforated viscus- Primary Other [...] or unspecified documented in this encounter [facility] Work Phone: evaluation note* Diagnosis Onset Date Resolution Status Abnormal EKG acuteClosed intertrochanteric fracture of right hipacuteElevated troponinacute [facility] Work Phone: Evaluation note* Diagnosis Onset Date Resolution Status Abnormal EKG acuteClosed intertrochanteric fracture of right hipacuteDiabetesacuteElevated troponinacuteImpaired mobility and activities of daily livingacuteMild left ventricular systolic dysfunction (LVSD)acuteNonsustained monomorphic ventricular tachycardiaacutePostoperative pain, acute, hipacuteTwo-vessel coronary artery diseaseacute [facility] Work Phone: Evaluation note* Diagnosis Onset Date Resolution Status Abnormal EKG acuteClosed intertrochanteric fracture of right hipacuteDiabetesacuteElevated troponinacuteImpaired mobility and activities of daily livingacuteMild left ventricular systolic dysfunction (LVSD)acuteNonsustained monomorphic ventricular tachycardiaacutePostoperative pain, acute, hipacuteTwo-vessel coronary artery diseaseacuteAnxiety and depressionacuteBPH (benign prostatic hyperplasia)acute CAD (coronary artery disease)acuteClosed intertrochanteric fracture of right hip acuteDiabetesacuteHypertensionacuteImpaired mobility and activities of daily livingacuteMild left ventricular systolic dysfunction (LVSD)acuteOsteoporosis acutePostoperative anemiaacutePostoperative pain, acute, hipacuteProtein-calorie malnutrition, mildacuteTwo-vessel coronary artery diseaseacuteUncontrolled diabetes mellitusacute [facility] Work Phone: Evaluation note* Diagnosis NSTEMI (non-ST elevated myocardial infarction) ([facility])- Primary Acute myocardial infarction, subendocardial infarction, episode of care unspecified Abnormal stress test Other nonspecific abnormal cardiovascular system function study ASHD (arteriosclerotic heart disease) Coronary atherosclerosis of unspecified type of vessel, [place] or graft Essential hypertension Unspecified essential hypertension Diabetes mellitus type II, non insulin dependent ([facility]) Type II or unspecified type diabetes mellitus without mention of complication, not stated as uncontrolled Closed fracture of right hip, initial encounter ([facility]) documented in this encounter [facility] Work Phone: Evaluation noteNo InformationN[employer] Other Evaluation note* Diagnosis Onset Date Resolution Status Diabetes acuteCAD (coronary artery disease)acuteDiabetesacute [facility] Work Phone: Evaluation note* Diagnosis Cardiomyopathy, ischemic- Primary Other specified forms of chronic ischemic heart disease ASHD (arteriosclerotic heart disease) Coronary atherosclerosis of unspecified type of vessel, [place] or graft BMI 20.0-20.9, adult Orthopnea documented in this encounter [facility] Work Phone: Evaluation noteNo assessment information available [facility] Work Phone: Evaluation note* Diagnosis Onset Date Resolution Status Fracture of C5 vertebra, closed acuteVertebral fracture, closedacuteBarretts esophagusacuteH pylori ulceracute [facility] Work Phone: Evaluation note* Diagnosis Onset Date Resolution Status Acute electrocardiogram changes acuteAcute GI bleedingacuteElevated troponinacuteGI bleedingacute [facility] Work Phone: Evaluation note* Diagnosis Onset Date Resolution Status Acute electrocardiogram changes acuteAcute GI bleedingacuteCAD (coronary artery disease)[id number] acuteElevated troponinacuteGI bleedingacuteHistory of pancreatectomyacute HypertensionacuteS/P PTCA (percutaneous transluminal coronary angioplasty)acute Type 1 diabetes mellitusacute [facility] Work Phone: Evaluation note* Diagnosis Onset Date Resolution Status Acute electrocardiogram changes resolvedAcute GI bleedingresolvedElevated troponinresolvedIschemic cardiomyopathyacuteAcute GI bleedingresolved [facility] Work Phone: Evaluation note* Diagnosis Onset Date Resolution Status Acute electrocardiogram changes resolvedAcute GI bleedingresolvedElevated troponinresolvedIschemic cardiomyopathyacuteAcute GI bleedingresolvedIron deficiencyacuteIschemic cardiomyopathyacute [facility] Work Phone: Evaluation note* Diagnosis Onset Date Resolution Status Acute electrocardiogram changes resolvedAcute GI bleedingresolvedElevated troponinresolvedIschemic cardiomyopathyacuteAcute GI bleedingresolvedIron deficiencyacuteIschemic cardiomyopathyacuteIschemic cardiomyopathyacuteIschemic cardiomyopathyacuteAcute GI bleedingresolved [facility] Work Phone: Evaluation note* Diagnosis 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 ([facility]/HCC) Pancreatic insufficiency ([facility]/HCC)- Primary Other specified disease of pancreas Coronary arteriosclerosis ([facility]/HCC) Coronary atherosclerosis of unspecified type of vessel, [place] or graft 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 ([facility]/HCC) 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 ([facility]/HCC) H pylori ulcer Chronic ulcer of unspecified site documented in this encounter [facility] HealthcareEvaluation note* Diagnosis 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 ([facility]/HCC) Bronchitis- Primary Bronchitis, not specified as acute or chronic 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 (CMS/HCC) Generalized anxiety disorder ([facility]) Generalized anxiety disorder Need for immunization against influenza Need for prophylactic vaccination and inoculation against influenza 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 H pylori ulcer Chronic ulcer of unspecified site 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 ([facility]/HCC) Insulin pump in place Insulin pump status Pancreatic insufficiency ([facility]/HCC) Other specified disease of pancreas Duodenal ulcer Medicare annual wellness visit, subsequent ACP (advance care planning) Other specified counseling Bradycardia Other specified cardiac dysrhythmias Orthostatic hypotension Acute on chronic systolic congestive heart failure ([facility]/HCC) documented in this encounter [facility] HealthcareEvaluation note* Diagnosis 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 ([facility]) ICD (implantable cardioverter-defibrillator) in place- Primary Hospital discharge follow-up Other follow-up examination 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 (CMS/HCC) Coronary atherosclerosis of unspecified type of vessel, [place] or graft Insulin pump in place Insulin pump status 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) Moderate pulmonary arterial systolic hypertension (CMS/HCC) Nonrheumatic mitral valve regurgitation Chronic systolic CHF (congestive heart failure), NYHA class 2 (CMS/HCC) documented in this encounter [facility] HealthcareEvaluation note* Diagnosis 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 (CMS/HCC) Abdominal wall abscess- Primary Cellulitis and abscess of trunk documented in this encounter [facility] HealthcareEvaluation note* Diagnosis 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, with long-term current use of insulin(HCC)- Primary 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) Insulin pump status [facility] Diabetes mellitus secondary to [...] absence of pancreas documented in this encounter [facility] HealthcareEvaluation note* Diagnosis 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 (CMS/HCC) Abdominal wall abscess- Primary Cellulitis and abscess of trunk documented in this encounter [facility] HealthcareEvaluation note* Diagnosis 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 (CMS/HCC) Chronic systolic CHF (congestive heart failure), NYHA class 2 (CMS/HCC)- Primary Pancreatic insufficiency (CMS/HCC) Other specified disease of pancreas History of bleeding peptic ulcer Coronary arteriosclerosis (CMS/HCC) Coronary atherosclerosis of unspecified type of vessel, [place] or graft 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) Orthostatic hypotension Bronchitis Bronchitis, not specified as acute or chronic documented in this encounter [facility] HealthcareEvaluation note* Diagnosis 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, with long-term current use of insulin(HCC)- Primary [facility] Diagnosis Diabetes mellitus secondary to [...] disease of pancreas documented in this encounter [facility] HealthcareEvaluation note* Diagnosis 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, with long-term current use of insulin(HCC)- Primary [facility] Diagnosis 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, with long-term current use of insulin(HCC)- Primary 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) Insulin pump status Insulin pump titration Fitting and adjustment of insulin pump [facility] Diagnosis 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, with long-term current use of insulin(HCC) [facility] Diagnosis 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, with long-term current use of insulin(HCC)- Primary 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) Insulin pump status Insulin pump titration Fitting and adjustment of insulin pump [facility] Diagnosis 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, with long-term current use of insulin(HCC)- Primary [facility] Diagnosis 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, with long-term current use of insulin(HCC) [facility] Diagnosis 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, with long-term current use of insulin(HCC) [facility] Diagnosis 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 Type 1 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 (HCC) Pancreatic insufficiency (HCC)- Primary Other specified disease of pancreas Pleurisy Pleurisy without mention of effusion or current tuberculosis Pleurisy Pleurisy without mention of effusion or current tuberculosis documented in this encounter [facility] HealthcareEvaluation note* Diagnosis 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, with long-term current use of insulin(HCC)- Primary [facility] Diagnosis 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, with long-term current use of insulin(HCC)- Primary [facility]* Diagnosis Onset Date Resolution Status Admit Date Ischemic cardiomyopathy acuteSept2024 9:54amType 1 diabetes mellitusacuteSept2024 9:54amAcute GI bleedingresolvedSept2024 9:54amCoronary artery disease involving [place] coronary artery of [place] heart wiinactiveSept2024 9:54amHypertensioninactiveSept2024 9:54amS/P PTCA (percutaneous transluminal coronary angioplasty)inactiveSept2024 9:54am [facility] Work Phone: Evaluation note* Diagnosis 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 Type 1 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 (HCC) Need for follow-up care after discharge- Primary Generalized anxiety disorder Pancreatic insufficiency (HCC) Other specified disease of pancreas Mixed hyperlipidemia 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) Coronary arteriosclerosis Coronary atherosclerosis of unspecified type of vessel, [place] or graft Current moderate episode of major 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 (HCC) Insulin pump in place Insulin pump status History of bleeding peptic ulcer 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) Benign prostatic hyperplasia with urinary frequency 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 Roche is an 89-year-old male with PMH of [...] that which is noted above in HPI [facility] Medical History Type 1 diabetes mellitus CAD (coronary artery disease) Former smoker BPH (benign prostatic hyperplasia) Urinary frequency Cardiomyopathy wearing external defib Coronary artery disease involving [place] coronary artery of [place] heart withoutangina pectoris GI bleeding Dupuytren's contracture [...] days #30 tabs 05/07/23 [Rx Confirmed 07/16/24] [id number] 24,000-76,000-120,000 unit capsule,delayed rel (Creon) 2cap PO [...] 07/16/24] pen needle, diabetic 32 gauge x 32 (BD Ultra-Fine Mar[place]uy Pen Needle) #100 ea [...] tab PO DAILY 10/26/23 [History Confirmed 07/16/24] xvdfuv-juqavotj-xrbyump 24,000-76,000-120,000 unit capsule,delayed rel (Creon) 1cap PO [...] % (Auto) 18.9 % (.) 07/16/24 12:30 [place] % (Auto) 12.8 % (.) 07/16/24 12:30 Eos % (Auto) 2.7 % (.) 07/16/24 12:30 Baso % (Auto) 0.8 % (.) 07/16/24 12:30 Nucleat RBC Rel Count 0.2 /100 WBC (0-0.5) 07/16/24 12:30 Neut # (Auto) 4.7 x10E3/uL (1.8-7.7) 07/16/24 12:30 Lymph # (Auto) 1.4 x10E3/uL (1.00-4.8) 07/16/24 12:30 [place] # (Auto) 0.9 x10E3/uL (0.0-0.8) H 07/16/24 [...] defibrillator) procedure: (6) Ischemic cardiomyopathy: Plan Mr. Roche is an 89-year-old male with PMH of [...] 2 Documented By: Indra Guillory MD 5 [id number] Signed By: <Electronically signed by Indra Guillory MD> 07/17/24 0148 [facility] Work Phone: History general Narrative - Reported* Type Description Date Medical History stage 1 diabetes Surgical Historypancreas and spleen removalSurgical Historyback surgerySurgical HistorytonsilectomySurgical HistoryHIP TFN [id number] [place] Other Hospital Discharge instructions* Instructions* Viki Donovan, - 01/07/2022 Maintain JEFF drain. Strip tubing [...] scheduled appointment, please call the office at [phone]. Call Your Doctor If Any of the [...] through Care Everywhere. * Surgical Drain Care ([place]) [facility] [employer] Work Phone: Hospital Discharge instructions Additional Instructions [...] -Dietary supplement: Glucerna 1 container twice a day.[facility] Work Phone: Hospital Discharge instructions [...] doctor or pharmacist, without first calling the hr operations advisor who implanted the stent. If you require [...] weight lifting, stair steppers, etc. until the hr operations advisor approves these activities. Check with the hr operations advisor on your first follow-up visit. CALL YOUR PHYSICIAN at [phone]: -If bleeding should occur from the catheter insertion site- apply pressure to the site then immediately call us. -Report any fever, redness, drainage, increased swelling, or firmness at the catheter insertion site. Some bruising or slight swelling may be present at the time of discharge. -Should arm or leg become cold, numb, white, or blue, contact the hr operations advisor immediately. -IF you should experience episodes of [...] is recommended. Please call Central Scheduling at [phone] to schedule your appointment.] The attending hr operations advisor or [facility] nurse clinician should provide you with specific instructions regarding activity, diet, medications, and further follow up for you. Follow the medication instructions provided on your discharge. If the dosages and instructions on this sheet differ from the dosage and instructions on the bottle, follow the instructions on the bottle. [facility] is not responsible for incorrect prescription information provided by the patient during their visit. Do not stop your medications without consulting your health care provider. Please take the list with you to your next doctor's appointment.[facility] Work Phone: Hospital Discharge instructionsAmbulatory Orders* Referral to Cardiac Rehab Location: None Selected [facility] Work Phone: Hospital Discharge instructions No data available for this section [facility] Progress note Author Anat Perez [facility] February 08, 2024 2:07pmNote Date/TimeJuly 2023 2:04pm[address] [place] [address] [address] Cardiology Progress Note Signed Patient: Manolo Roche MR#: [id number] : 1935 Acct:[id number] Age/Sex: 88 / M Adm Date: 4 Loc: Room: [address] [place] [address] Type: ADM IN Attending Dr: Warren Gross [...] MPV Neut % (Auto) Lymph % (Auto) [place] % (Auto) Eos % (Auto) Baso % (Auto) Nucleat RBC Rel Count Neut # (Auto) Lymph # (Auto) [place] # (Auto) Eos # (Auto) Baso # [...] % (Auto) 51.7 Lymph % (Auto) 22.3 [place] % (Auto) 17.6 Eos % (Auto) 7.1 Baso % (Auto) 1.3 Nucleat RBC Rel Count 0.2 Neut # (Auto) 3.0 Lymph # (Auto) 1.3 [place] # (Auto) 1.0 H Eos # (Auto) 0.4 Baso # (Auto) 0.1 PHA Creatinine Clear 58.45 Sodium 135 L Potassium 4.4 Chloride 102 Carbon Dioxide 29.6 Anion Gap 7.8 BUN 24 Creatinine 0.82 Est GFR (CKD-EPI) > 60.0 Glucose 320 H D POC Glucose 365 POC Glucose Comment Will notify /karin Calcium 8.1 L Magnesium 1.8 L 02/08/24 11:23 Corrected WBC Uncorrected WBC Count RBC Hgb Hct MCV MCH MCHC RDW Plt Count MPV Neut % (Auto) Lymph % (Auto) [place] % (Auto) Eos % (Auto) Baso % (Auto) Nucleat RBC Rel Count Neut # (Auto) Lymph # (Auto) [place] # (Auto) Eos # (Auto) Baso # (Auto) PHA Creatinine Clear Sodium Potassium Chloride Carbon Dioxide Anion Gap BUN Creatinine Est GFR (CKD-EPI) Glucose POC Glucose 382 POC Glucose Comment Calcium Magnesium A&P - Cardiology (1) Acute GI bleeding: Code(s): K92.2 - Gastrointestinal hemorrhage, unspecified (2) Elevated troponin: Code(s): R79.89 - Other specified abnormal findings of blood chemistry (3) Coronary artery disease involving [place] coronary artery of [place] heart without angina pectoris: Code(s): I25.10 - Atherosclerotic heart disease of [place] coronary artery without angina pectoris (4) S/P PTCA (percutaneous transluminal coronary angioplasty): Code(s): Z98.61 - Coronary angioplasty status Plan # Acute recurrent GI Bleed in setting of known PUD (recent EGD on 09/01/23 found a 2 cm ulcer with anonbleeding visible vessel at the bulb of the duodenum). # CAD s/p PCI in Jul 2023. # Ischemic Cardiomyopathy s/p LifeVest ordered in [place] - Well compensated. # Non-ACS myocardial injury - Is due to demand-supply mismatch 2/2 acute anemia. 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 Current smoker. [facility] 04/30/23 - Two-vessel coronary artery disease- 100% prox LAD occlusion; 80% D1; LCx has 50% prox stenosis with 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 Echo 04/28/24 - EF 40-45%, mild LVH, trace MR and TR. [facility] 07/16/22 - Successful PCI ostial/proximal LAD-diagonal branch; true LADLE HANDLER proximal/mid LAD (attempted wiring with balloon). EKG 09/07/23 - sinus peace 56 bpm, anterolateral TWI. EKG 09/08/23 - sinus peace 58 bpm, anterolateral and inferior TWI. - Pt is currently 6 months out from PCI. Plavix stopped. Continue ASA 81mg dailyand monitor Hb - Reviewed records from recent hospitalization at [facility] in [place]. He was hospitalized for NSTEMI and PNA. [...] PO 20mg daily. - Follow up with [facility] cardiology as scheduled on 03/02/24. Will plan on repeat ECHO 3 months after being on maximally tolerated GDMT to determine need for ICD. - Cardiology will sign off. Please call with questions. Documented By: Anat Perez MD 02/08/24 0134 Signed By: <Electronically signed by Anat Perez MD> 02/08/24 7788 [facility] Work Phone: Progress note Author Chuck Velasco [facility] Medical CenterNote Date/TimeNovember 2023 10:41am [place] [address] Cardiology Progress Note Signed Patient: Manolo Roche MR#: [id number] : 1935 Acct:[id number] Age/Sex: 89 / M Adm Date: 4 Loc: Room: [address] [place] [address] Type: ADM IN Attending Dr: Abdulaziz Root [...] signed by Chuck Velasco MD> 05/25/24 1041 [facility] Work Phone: Progress note No data available for this section [facility] Reason for referral (narrative)* Consultation (Routine) - AuthorizedSpecialtyDiagnoses / ProceduresReferred By ContactReferred To ContactCardiology Diagnoses Abnormal stress test ASHD (arteriosclerotic heart disease) NSTEMI (non-ST elevated myocardial infarction) ([facility]) Procedures Follow Up In Cardiology Govind Davis, [address] [facility] [address] [place] [phone] Govind Davis, DO [address] [facility] [address] [place] [phone] Referral IDStatusReasonStart DateExpiration DateVisits RequestedVisits [id number]/14/202311/ * Cardiovascular (Routine) - Pending ReviewSpecialtyDiagnoses / Procedures Referred By ContactReferred To Contact Diagnoses Abnormal stress test ASHD (arteriosclerotic heart disease) Procedures ECG 12 Lead Govind Davis, [address] [facility] [address] [place] [phone] Referral IDStatusReasonStburlington DateExpiration DateVisits RequestedVisits [id number] [facility] Work Phone: Refqsu for referral (narrative)No reason for referral information availableSouthern [facility] Medical Center Work Phone: Advance Directives Code StatusDate ActivatedDate InactivatedCommentsFull Code01/02/2022 10:32 PMFull Code01/02/2022 8:11 PM01/02/2022 10:32 PMNameRelationshipHealthcare Agent RelationshipCommunicationRose Yodit SbernaSpousePrimary Decision Maker* Saúl SbernaChildSecondary Decision Maker* Advance Directive Response Recorded Date/ Time Advance Directives No March 5:30pm Advance Directive Response Recorded Date/ Time Advance Directives No March 4:30pm Date ActivatedDate KlzzalwpaqdHwwkkkmp77/16/2024 7:43 AMDate ActivatedDate KhjrlorpyubQhycsdyv44/16/2024 7:43 AM Summary Purpose Family History Relationship Condition Age at Onset Recorded Date/T madelyn brother Malignant neoplasm Unknown natural sonSarcomaUnknown Relationship Condition Age at Onset Recorded Date/T madelyn brother Malignant neoplasm Unknown natural sonSarcomaUnknownsisterLeukemiaUnknown Relationship Condition Age at Onset Recorded Date/T madelyn brother Malignant neoplasm Unknown sonSarcomaUnknownsisterLeukemiaUnknown Relationship Condition Age at Onset Recorded Date/T madelyn brother Malignant neoplasm Unknown DeceasedUnknownsonSarcomaUnknownsisterLeukemiaUnknown Chief Complaint and Reason for Visit Chief [...] Complaint fall firht it femur fx s/p TFNReason for VisitAbnormal EKG Closed intertrochanteric fracture of right hip [...] fall firht it femur fx s/p TFN S72.141AReason for VisitAbnormal EKG Closed intertrochanteric fracture of right hip [...] s/p TFN S72.141A S72.141A Abnormal Stress, CAD, CardiomyopathyReason for VisitDiabetes CAD (coronary artery disease) Diabetes Chief Complaint [...] referral cervical follow up seen in pt/egd.lewis's esophagusReason for VisitFracture of C5 vertebra, closed Vertebral fracture, closed Barretts esophagus H pylori ulcer Chief Complaint gastric ulcer gastric ulcer DizzinessReason for VisitAcute electrocardiogram changes Acute GI bleeding Elevated troponin GI bleeding Chief Complaint gastric ulcer gastric ulcer Dizziness Dizziness DizzinessReason for VisitAcute electrocardiogram changes Acute GI bleeding CAD (coronary artery disease) [id number] Elevated troponin GI bleeding History of pancreatectomy Hypertension S/P PTCA (percutaneous transluminal coronary angioplasty) Type 1 diabetes mellitus Chief Complaint Dizziness Dizziness Dizziness K92.2Reason for VisitAcute electrocardiogram changes Acute GI bleeding CAD (coronary artery disease) [id number] Elevated troponin GI bleeding History of pancreatectomy Hypertension S/P PTCA (percutaneous transluminal coronary angioplasty) Type 1 diabetes mellitus Chief Complaint Dizziness Dizziness Dizziness K92.2 K92.2Reason for VisitAcute electrocardiogram changes Acute GI bleeding CAD (coronary artery disease) [id number] Elevated troponin GI bleeding History of pancreatectomy Hypertension S/P PTCA (percutaneous transluminal coronary angioplasty) Type 1 diabetes mellitus Chief Complaint Dizziness Dizziness Dizziness K92.2 K92.2 [facility] 02/06Reason for VisitAcute electrocardiogram changes Acute GI bleeding CAD (coronary artery disease) [id number] Elevated troponin GI bleeding History of pancreatectomy Hypertension S/P PTCA (percutaneous transluminal coronary angioplasty) Type 1 diabetes mellitus Chief Complaint Dizziness Dizziness Dizziness K92.2 K92.2 [facility] 02/06 k92.2 d50.9 r00.1Reason for VisitAcute electrocardiogram changes Acute GI bleeding Elevated troponin Ischemic cardiomyopathy Acute GI bleeding Chief Complaint Dizziness Dizziness Dizziness K92.2 K92.2 [facility] 02/06 r00.1 k92.2 d50.9 r00.1 bp checkReason for VisitAcute electrocardiogram changes Acute GI bleeding Elevated troponin Ischemic cardiomyopathy Acute GI bleeding Chief Complaint Dizziness Dizziness Dizziness K92.2 K92.2 [facility] 02/06 r00.1 k92.2 d50.9 r00.1 bp check E61.1,K92.2 I25.10Reason for VisitAcute electrocardiogram changes Acute GI bleeding Elevated troponin Ischemic cardiomyopathy Acute GI bleeding Iron deficiency Ischemic cardiomyopathy Chief Complaint Dizziness Dizziness Dizziness K92.2 K92.2 [facility] 02/06 r00.1 k92.2 d50.9 r00.1 bp check I25.10 E61.1,K92.2Reason for VisitAcute electrocardiogram changes Acute GI bleeding Elevated troponin Ischemic cardiomyopathy Acute GI bleeding Iron deficiency Ischemic cardiomyopathy Chief Complaint Dizziness Dizziness Dizziness K92.2 K92.2 [facility] 02/06 r00.1 k92.2 d50.9 r00.1 bp check I25.10 E61.1,K92.2 2 weeks bpReason for VisitAcute electrocardiogram changes Acute GI bleeding Elevated troponin Ischemic cardiomyopathy Acute GI bleeding Iron deficiency Ischemic cardiomyopathy Chief Complaint Dizziness Dizziness Dizziness K92.2 K92.2 [facility] 02/06 r00.1 k92.2 d50.9 r00.1 bp check I25.10 E61.1,K92.2 2 weeks bp 6 weeksReason for VisitAcute electrocardiogram changes Acute GI bleeding Elevated troponin Ischemic cardiomyopathy Acute GI bleeding Iron deficiency Ischemic cardiomyopathy Ischemic cardiomyopathy Ischemic cardiomyopathy Acute GI bleeding Chief Complaint Dizziness Dizziness Dizziness K92.2 K92.2 [facility] 02/06 r00.1 k92.2 d50.9 r00.1 bp check I25.10 E61.1,K92.2 2 weeks bp 6 weeks evaluation for ICD evaluation for ICDReason for VisitAcute electrocardiogram changes Acute GI bleeding Elevated troponin Ischemic cardiomyopathy Acute GI bleeding Iron deficiency Ischemic cardiomyopathy Ischemic cardiomyopathy Ischemic cardiomyopathy Acute GI bleeding Chief Complaint Dizziness Dizziness Dizziness K92.2 K92.2 [facility] 02/06 r00.1 k92.2 d50.9 r00.1 bp check I25.10 E61.1,K92.2 2 weeks bp 6 weeks evaluation for ICD evaluation for ICD HFCReason for VisitAcute electrocardiogram changes Acute GI bleeding Elevated troponin Ischemic cardiomyopathy Acute GI bleeding Iron deficiency Ischemic cardiomyopathy Ischemic cardiomyopathy Ischemic cardiomyopathy Acute GI bleeding Chief Complaint Dizziness Dizziness Dizziness K92.2 K92.2 [facility] 02/06 r00.1 k92.2 d50.9 r00.1 bp check I25.10 E61.1,K92.2 2 weeks bp 6 weeks evaluation for ICD evaluation for ICD HFCReason for VisitAcute electrocardiogram changes Acute GI bleeding Elevated troponin Ischemic cardiomyopathy Acute GI bleeding Iron deficiency Ischemic cardiomyopathy Ischemic cardiomyopathy Ischemic cardiomyopathy Acute GI bleeding Ischemic cardiomyopathy [id number] Sinus bradycardia H pylori ulcer Iron deficiency Ischemic cardiomyopathy [id number] Chief Complaint K92.2 K92.2 [facility] 02/06 r00.1 k92.2 d50.9 r00.1 bp check I25.10 E61.1,K92.2 2 weeks bp 6 weeks evaluation for ICD evaluation for ICD HFC BP WITH ORTHOReason for VisitIschemic cardiomyopathy Acute GI bleeding Iron deficiency Ischemic cardiomyopathy Ischemic cardiomyopathy Ischemic cardiomyopathy Acute GI bleeding Ischemic cardiomyopathy [id number] Sinus bradycardia H pylori ulcer Iron deficiency Ischemic cardiomyopathy [id number] Chief Complaint Admit Date bp check February [...] February 28 12:54pm Ischemic cardiomyopathy March 15, 024 10:29am Ischemic cardiomyopathy March 27, 2024 10:57am Acute GI bleeding March 27, 2024 10:57am Coronary artery disease invo [place]ving [place] coronary artery [place] March 27, 2024 10:57am Hypertension [...] May 10 10:52am Ischemic cardiomyopathy May 24, 024 8:30pm Non-ST elevation myocardial infarction (NSTEMI), [...] 37pm I47.2 Z95.810 August 29, 2024 1:28pm [facility] 07/17August 31, 2024 9:56am Reason for Visit [...] 2024 9:56am Coronary artery disease invo [place]ving [place] coronary artery [place] heart [place] August 31, 2024 9:56am Hypertension August 31, 2024 9:56am S/P PTCA (percutaneous transluminal mounika nary angioplasty) August 31, 2024 9:56am Chief Complaint Admit Date chest pain July 16, 2024 6: 08pm chest pain July 17, 2024 4: 37pm I47.2 Z95.810 August 29, 2024 1:28pm [facility] 07/17August 31, 2024 9:56am 6 weeks October [...] 2024 6 :08pm Ischemic cardiomyopathy August 31, 025 9:56am Type 1 diabetes mellitus August 31, 2024 9:56am Acute GI bleeding August 31, 2024 9:56am Coronary artery disease invo [place]ving [place] coronary artery of [place] August 31, 2024 9:56am Hypertension August 31, 2024 9:56am S/P PTCA (percutaneous transluminal mounika nary angioplasty) August 31, 2024 9:56am Ischemic cardiomyopathy October 13, 2024 9:10am Type 1 diabetes mellitus October 13, 2024 9:10am Acute GI bleeding October 13, 2024 9:10 am Coronary artery disease invo lving [place] coronary artery of [place] heart [place] October 13, 2024 9:10am Hypertension [...] 9:10 am Coronary artery disease invo lving [place] coronary artery of [place] heart [place] October 13, 2024 9:10am Hypertension [...] 2025 9:54am Coronary artery disease invo lving [place] coronary artery of [place] heart [place] March 27, 2025 9:54am Hypertension March 27, 2025 9:54am S/P PTCA (percutaneous transluminal mounika nary angioplasty) March 27, 2025 9:54am Chief Complaint Admit Date I47.2 Z95.810 March 02, 2025 11 :36am 6 week f/u May 09, 2025 1 0:11am Reason for Visit Admit Date Ischemic cardiomyopathy March 27, 2025 9:54am Type 1 diabetes mellitus March 27, 2025 9:54am Acute GI bleeding March 27, 2025 9:54am Coronary artery disease invo [place]ving [place] coronary artery of [place] March 27, 2025 9:54am Hypertension March 27, 2025 9:54am S/P PTCA (percutaneous transluminal mounika nary angioplasty) March 27, 2025 9:54am H pylori ulcer May 09, 2025 1 0:11am Iron deficiency May 09, 2025 1 0:11am Ischemic cardiomyopathy May 09 10:11am Type 1 diabetes mellitus May 09, 2 025 10:11am Acute GI bleeding May 09, 2025 1 0:11am Non-ST elevation myocardial infarction (NSTEMI), subendocardial infarction, May 09, 2025 10:11am Coronary artery disease invo [place]ving [place] coronary artery of [place] heart [place] May 09, 2025 10:11am Hypertension May 09, 2025 1 0:11am S/P PTCA (percutaneous transluminal mounika nary angioplasty) May 09, 2025 10:11am Additional Source Comments Reason for Visit (unrecogniz ed section and content) ReasonCommentsAbdominal PainulcerSpecialtyDiagnoses / ProceduresReferred By ContactReferred To Contact Diagnoses Acute gastric ulcer with perforation (HCC) Perforated viscus Delon Carrion, DO [address] [facility] [address] [place] [address] [facility] [address] [place] [address] Referral IDStatusReasonStart DateExpiration DateVisits RequestedVisits [id number] [facility]23Specialty Diagnoses / ProceduresReferred By ContactReferred To Contact Diagnoses Abnormal stress test ASHD (arteriosclerotic heart disease) Procedures ECG 12 Lead Govind Davis, DO [address] [facility] [address] [place] [address] Referral IDStatusReasonStart DateExpiration DateVisits RequestedVisits [id number] SpecialtyDiagnoses / ProceduresReferred By ContactReferred To ContactCardiology Diagnoses ASHD (arteriosclerotic heart disease) Procedures Follow Up In Cardiology Sammy Berman, SENIOR DYNAMICS CRM DEVELOPER-UTILITY SYSTEM OPERATOR [address] [facility] [address] [place] [address] Referral IDStatusReasonStart DateExpiration DateVisits RequestedVisits [id number]/13/202312/[id number]-bvuv office visitToday patient reports he is feeling better after taking the atb.Reason CommentsMedicare Annual Wellness Visit SubsequentThree-month ovHyperglycemia Patient report his BG have been running as high as 300. He also very thirst. CoughAt night for the last several weeksDizzinessReasonCommentsHospital Follow-upFallPatient reports he took a fall on Sat, hitting the area of the pacemaker. 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 abd. wall abscess ReasonCommentsOmnipod DASH to 5 pump upgradeReasonCommentsHospital Follow-up ReasonCommentsAppointmentReasonCommentsDiabetes Self Management EducationReason CommentsFormsSolara - LUCA noteReasonCommentsFormsSolara Medical Supplies- Physcians orderReasonCommentsOne Month OVPatient had his Lasix cut in half for his Dizziness. Today reports his dizziness is still the same as when he was last here. He will need another script of Lasix if he is to continue this medication. Off balancePatient reports this is not getting any better. He feels like he is walking slow but doing poorlyReasonCommentsOmipod 5 upgrade follow up callReason CommentsOmnipod 5 pump issueReasonCommentsDiabetesReasonCommentsOmnipod 5 pump follow up callReasonCommentsOmnipod 5/Dexcom helpReasonCommentsDexcom G7 CGM supply issuesReasonCommentsMed Change RequestReasonCommentsInsurance Authorizationinsulin pump cart,auto,BT,G6/7 (OMNIPOD 5 G6-G7 PODS, GEN 5,) crtg ReasonCommentsOmnipod 5/Dexcom G7 issuesReasonCommentsOmnipod/Dexcom issues ReasonCommentsHigh Blood SugarReasonOnset DateCommentsRefill Hhcaeph4212/19/2024 ReasonOnset DateCommentsRefill Ucomhfm9912/12/2024ReasonCommentsFlank PainLeft- side for 10 days, denies change in bowel movements, no known injury. Pain has been severe but intermittentlylack of appetiteWt loss of 10 lbs since last OV Ordered Prescriptions (unrec ognized section and content) PrescriptionSigDispensedRefillsStart DateEnd Date amLODIPine (NORVASC) 5 MG tablet Take 1 tablet by mouth daily 30 tablet sucralfate (CARAFATE) 1 GM/10ML suspension Take 10 mLs by mouth 4 times daily 1200 mL pantoprazole (PROTONIX) 40 MG tablet Take 1 tablet by mouth every morning (before breakfast) 90 tablet Scheduled Active and Recently Administ ered Medications (unrecognized section and content) Medication Order/ acetaminophen (TYLENOL) tablet 1,000 mg 1,000 mg, Oral, EVERY 8 HOURS SCHEDULED (3 times per day), First dose on Wed01/06/22 at 1400, UntilDiscontinued, Maximum dose of acetaminophen is 4000 mg from all sources in 24 hours. * 1407 (Given - Provider: Baljit Sage RN) * 2350 (Given - Provider: Queta Geiger RN) * 0517 (Given - Provider: Queta Geiger RN) * 1400 (Due) * 2200 (Due) amLODIPine (NORVASC) tablet 5 mg 5 mg, Oral, DAILY, First dose on Wed01/04/22 at 1500, Until Discontinued * 0940 (Given - Provider: Baljit Sage RN) * 0938 (Given - Provider: Baljit Sage RN) * 0935 (Given - Provider: Leatha Hudson RN) enoxaparin (LOVENOX) injection 40 mg 40 mg, SubCUTAneous, DAILY, First dose on Wed01/03/22 at 0900, Until Discontinued, Indication of Use: Prophylaxis-DVT/PE * 0940 (Given - Provider: Baljit Sage RN) * 0939 (Not Given - Provider: Baljit Saeg RN - Reason: Patient/family refused) * 0939 (Not Given - Provider: Leatha Hudson RN - Reason: Patient/family refused) Insulin Pump - Basal Dose (Patient Supplied) SubCUTAneous, DAILY, First dose on 01/03/22 at 1530, Total daily basal dose (total number of units/24 hours) provided by patient and/or query of insulin pump. * 0951 (Patient/Family Admin - Provider: Baljit Sage RN) * 0939 (Patient/Family Admin - Provider: Baljit Sage RN) * 0815 (Patient/Family Admin - Provider: Leatha Hudson RN) Insulin Pump - Bolus Dose (Patient Supplied) SubCUTAneous, EVERY 4 HOURS, First dose on 01/03/22 at 1600, Patient to bolus using insulin pumpbased on current home settings for carbohydrates coverage and blood glucose correction. * 0401 (Not Given - Provider: Aliyah Hanley RN - Reason: Patient took at home) * 0942 (Not Given - Provider: Baljit Sage RN - Reason: Order parameters not met - Comment: blood glucose 126) * 1144 (Not Given - Provider: Baljit Sage RN - Reason: Order parameters not met - Comment: blood glucose 166 and patient not eating) * 1550 (Not Given - Provider: Baljit Sage RN - Reason: Order parameters not met - Comment: Blood glucose 175 and patient not eating) * 2000 (Held - Provider: Queta Geiger RN - Reason: Patient/family refused - Comment: Pt states he isnot eating much so he did not self administer insulin) * 0121 (Held - Provider: Queta Geiger RN - Reason: Order parameters not met) * 0623 (Not Given - Provider: Courtney Yao RN - Reason: Other - Comment: Pt reports that insulin pump automatically checks his sugar and doses insulin) * 0801 (Patient/Family Admin - Provider: Baljit Sage RN) * 1211 (Patient/Family Admin - Provider: Baljit Sage RN - Comment: 139) * 1641 (Not Given - Provider: Baljit Sage RN - Reason: Order parameters not met) * 1928 (Patient/Family Admin - Provider: Queta Geiger RN - Comment: bs 142 per pt) * 0000 (Due) * 0400 (Due) * 0800 (Patient/Family Admin - Provider: Leatha Hudson RN - Comment: blood sugar 73) * 1217 (Patient/Family Admin - Provider: Leatha Hudson RN) * 1600 (Due) * 2000 (Due) magnesium oxide (MAG-OX) tablet 400 mg (COMPLETED) 400 mg, Oral, ONCE, 1 dose, On Wed01/07/22 at 1030 * 1218 (Given - Provider: Leatha Hudson RN) magnesium sulfate 2000 mg in 50 mL IVPB premix (COMPLETED) 2,000 mg, IntraVENous, at 25 mL/hr, Administer over 2 Hours, ONCE, On Wed01/05/22 at 0630, For 1 dose, Recommended infusion rate not to exceed 1,000 mg (milligrams) per hour. * 0739 (New Bag - Provider: Baljit Sage RN) * 0939 (Stopped - Provider: Baljit Sage RN) methocarbamol (ROBAXIN) 750 mg in dextrose 5 % 100 mL IVPB (CANCELED) 750 mg, IntraVENous, at 200 mL/hr, Administer over 30 Minutes, EVERY 6 HOURS, First dose on Wed01/02/22 at 2300 * 0000 (Stopped - Provider: Aliyah Hanley RN) * 0454 (New Bag - Provider: Aliyah Hanley RN) * 0558 (Stopped - Provider: Aliyah Hanley RN) * 1129 (New Bag - Provider: Baljit Sage RN) * 1159 (Stopped - Provider: Baljit Sage, KARIN) * 1655 (New Bag - Provider: Baljit Sage RN) * 1725 (Stopped - Provider: Baljit Sage RN) * 2317 (New Bag - Provider: Queta Geiger, RN) * 2351 (Stopped - Provider: Queta Geiger, RN) * 0506 (New Bag - Provider: Queta Geiger, RN) * 0536 (Stopped - Provider: Courtney Yao RN) * 1104 (New Bag - Provider: Baljit Sage, KARIN) * 1134 (Stopped - Provider: Baljit Sage, KARIN) pantoprazole (PROTONIX) 40 mg in sodium chloride (PF) 10 mL injection 40 mg, IntraVENous, EVERY 12 HOURS, First dose on Wed01/02/22 at 2300, Reconstitute with 10 mL 0.9 % sodium chloride and administer over at least 2 minutes. * 1132 (Given - Provider: Baljit Sage RN) * 2300 (Given - Provider: Queta Geiger, KARIN) * 1100 (Given - Provider: Baljit Sage, KARIN) * 2355 (Given - Provider: Queta Geiger, RN) * 0939 (Given - Provider: Leatha Hudson RN) * 2300 (Due) PARoxetine (PAXIL) tablet 30 mg 30 mg, Oral, EVERY MORNING, First dose on Wed01/05/22 at 0900, Until Discontinued * 0940 (Given - Provider: Baljit Sage RN) * 0939 (Given - Provider: Baljit Sage RN) * 0934 (Given - Provider: Leatha Hudson RN) phosphorus (K PHOS NEUTRAL) tablet 1 tablet (COMPLETED) Each tablet contains 250mg elemental phosphorus (8mmol), 1.1 mEq potassium, 13 mEq sodium, 1 tablet(250 mg), Oral, ONCE, 1 dose, On Wed01/07/22 at 1030 * 1218 (Given - Provider: Leatha Hudson RN) piperacillin-tazobactam (ZOSYN) 3,375 mg in dextrose 5 % 50 mL IVPB (mini-bag) (CANCELED) 3,375 mg, IntraVENous, EVERY 6 HOURS, 16 doses, First dose (after last modification) on Wed01/02/22at 2300, Last dose on Wed01/06/22 at 1700, Antimicrobial Indications: Intra-Abdominal Infection * 0401 (Stopped - Provider: Aliyah Hanley RN) * 0454 (New Bag - Provider: Aliyah Hanley RN) * 0854 (Stopped - Provider: Aurelia Castillo RN) * 1130 (New Bag - Provider: Baljit Sage, KARIN) * 1530 (Stopped - Provider: Baljit Sage RN) * 1655 (New Bag - Provider: Baljit Sage RN) * 2123 (Stopped - Provider: Queta Geiger, RN) * 2312 (New Bag - Provider: Queta Geiger, RN) * 0335 (Stopped - Provider: Queta Geiger, KARIN) * 0507 (New Bag - Provider: Queta Geiger RN) * 0907 (Stopped - Provider: Baljit Sage RN) * 1104 (New Bag - Provider: Baljit Sage, KAIRN) * 1504 (Stopped - Provider: Aurelia Castillo RN) * 1732 (Canceled Entry - Provider: Baljit Sage RN - Comment: order discontinued) potassium bicarb-citric acid (EFFER-K) effervescent tablet 40 mEq (COMPLETED) 40 mEq, Oral, ONCE, 1 dose, On Wed01/07/22 at 1030, Do not chew or crush. Dissolve flavored tabletscompletely in 3 to 4 ounces of cold water; unflavored tablets may be dissolved in 3 to 4 ounces of cold juice. Patient to sip slowly over a 5 to 10 minute period. May further dilute if GI adverse effects occur. * 1217 (Given - Provider: Leatha Hudson RN) potassium chloride (KLOR-CON M) extended release tablet 40 mEq (COMPLETED) 40 mEq, Oral, ONCE, 1 dose, On Wed01/06/22 at 0915, Do not crush, chew, or suck on tablet. Tablet may also be broken in half and each half swallowed separately. * 0939 (Given - Provider: Baljit Sage RN) potassium chloride 10 mEq/100 mL IVPB (Peripheral Line) (COMPLETED) 10 mEq, IntraVENous, EVERY HOUR, 2 doses, First dose on Wed01/05/22 at 0700, Last dose on Wed01/05/22 at 0800, at 100 mL/hr * 0740 (New Bag - Provider: Baljit Sage RN) * 0947 (New Bag - Provider: Baljit Sage RN) potassium phosphate 15 mmol in dextrose 5 % 250 mL IVPB (COMPLETED) 15 mmol, IntraVENous, at 125 mL/hr, Administer over 120 Minutes, ONCE, On Wed01/05/22 at 0630, For 1 dose * 0950 (New Bag - Provider: Baljit Sage RN) * 1150 (Stopped - Provider: Baljit Sage RN) sodium chloride flush 0.9 % injection 5-40 mL 5-40 mL, IntraVENous, EVERY 12 HOURS SCHEDULED (2 times per day), First dose on Wed01/02/22 at 2300, Until Discontinued, For Line Patency: Peripheral IV = 5 mL; Midline or Central Line = 10 mL/lumen.If following IV push medication, administer flush at same rate as the IV push. Flush volume is determined by type of infusion therapy being given. For non-viscous solutions use: Peripheral IV = 5 mL Midline or Central Line = 10 mL/lumen For viscous solutions (i.e. blood components, parenteral nutrition, contrast media, or after obtaining blood sample) use: Peripheral IV = 10 mL Midline or CentralLine = 20 mL/lumen * 0954 (Given - Provider: Baljit Sage RN) * 2014 (Given - Provider: Queta Geiger, KARIN) * 0939 (Given - Provider: Baljit Sage RN) * 192 (Given - Provider: Queta Geiger, KARIN) * 0938 (Not Given - Provider: Leatha Hudson RN - Reason: IV Fluid Infusing) * 2100 (Due) sucralfate (CARAFATE) 1 GM/10ML suspension 1 g 1 g, Oral, EVERY 6 HOURS SCHEDULED (4 times per day), First dose on Wed01/02/22 at 2030, Until Discontinued, Please select a reason the therapeutic interchange was not accepted: Other (Please Comment), Need suspension * 0512 (Given - Provider: Aliyah Hanley RN) * 1134 (Given - Provider: Baljit Sage RN) * 1759 (Given - Provider: Baljit Sage RN) * 2306 (Given - Provider: Queta Geiger, RN) * 0621 (Given - Provider: Queta Geiger, RN) * 1211 (Given - Provider: Baljit Sage RN) * 1757 (Given - Provider: Baljit Sage, KARIN) * 2350 (Given - Provider: Queta Geiger, RN) * 0517 (Given - Provider: Queta Geiger, RN) * 1217 (Given - Provider: Leatha Hudson, KARIN) * 1800 (Due) Medication Order01/05//// 0.9 % sodium chloride infusion IntraVENous, at 75 mL/hr, CONTINUOUS, Starting on Wed01/06/22 at 0830 * 0807 (New Bag - Provider: Baljit Sage RN) * 2349 (New Bag - Provider: Queta Geiger RN) lactated ringers infusion (CANCELED) IntraVENous, at 125 mL/hr, CONTINUOUS, Starting on Wed01/02/22 at 2300 * 1310 (Stopped - Provider: Baljit Sage RN) * 1310 (New Bag - Provider: Baljit Sage RN) * 1822 (Stopped - Provider: Baljit Sage RN - Comment: order discontinued) Medication Order// 0.9 % sodium chloride infusion IntraVENous, at [...] 100 mL/hr. Repeat blood glucose in 15 minutesx2 and notify provider. hydrALAZINE (APRESOLINE) injection 10 mg 10 mg, IntraVENous, EVERY 6 HOURS PRN, Starting on Wed01/04/22 at 0740, Until Discontinued, High Blood Pressure, for sbp >160 iohexol (OMNIPAQUE 240) injection 100 mL (COMPLETED) 100 mL, Oral, IMG ONCE PRN, 1 dose, Starting on Wed01/05/22 at 0844, Until Wed01/05/22 at 0845, Other * 0845 (Given - Provider: Kathy Ness) melatonin tablet 3 mg 3 mg, Oral, NIGHTLY PRN, Starting on Wed01/06/22 at 0000, Until Discontinued, Sleep * 0022 (Given - Provider: Queta Geiger RN) [...] For viscous solutions (i.e. blood components, parenteral nutrition,contrast media, or after obtaining blood sample) use: Peripheral IV = 10 mL Midline or Central Line= 20 mL/lumen Order Group 1: dextrose bolus 10% 125 mLJump to med 125 mL, IntraVENous, at 937.5 mL/hr, Administer over 8 Minutes, PRN, Other, Blood glucose 40 - 69 mg/dL and patient NOT ALERT or NPO, Starting on 01/03/22 at 1458
Start D5W at 100 mL/houruntil ordering provider can be reached. Repeat blood [...] and recheck blood glucose in 15 minutes x2. If using Glucostabilizer, dose as instructed per [...]
Care Teams (unrecognized sec tion and content) Personnel Name: SALVADOR NARANJO DO Address: [address] [facility], [facility] [place], [place] [address] Telecom: Team Status: Active Member Role Status Dates Marie Tejeda DO Primary Care Provider Active Team Status: Inactive Member Role Status Dates Marie Tejeda DO Primary Care Provider Active Dimitri Miranda ProviderActiveKristophmichelle Robertom , DOAdmit ProviderActiveAshwini Conrad MDOther ProviderActiveChuck Velasco MD Other ProviderActiveAnat Perez MDOther ProviderActiveHumberto Diaz MD Attending ProviderActiveTru Yap MDOther ProviderActiveTeam Member RelationshipSpecialtyStart DateEnd Date Marie Tejeda [facility] [address] [place] [address] PCP - GeneralInternal Medicine01/07/22 Team Status: Active Member Role Status Dates Marie Tejeda DO Primary Care Provider Active Dimitri Miranda ProviderActiveRamonophmichelle Cordon , DOAdmit Provider, Attending ProviderActive Team Status: Inactive Member Role Status Dates Marie Tejeda DO Primary Care Provider Active Fredi Medrano MDAdmesdras Provider, Attending ProviderActiveLois Rios RNOther ProviderActiveKavya Velazquez RNOther ProviderActiveGay Angulo RNOther ProviderActiveBuffy Hernandez RNOther ProviderActiveFransisca Bentley RNOther ProviderActiveMozeus Henry RNOther ProviderActiveChris Holm MDOther ProviderActiveLisa Guille Clarkes , APRNOther ProviderActiveRonwaylon Wilson DOOther ProviderActiveMusmichael Major MDOther ProviderActive Sushant Cordon DOOther ProviderActiveAudi Gaming MDOther Provider ActiveCecily Keen MDOther ProviderActiveLykika Wright , APRNOther ProviderActiveDaniel Reyes MDOther ProviderActiveRoberto Sevilla MDOther ProviderActiveHumberto Diaz MDOther ProviderActiveMarzena Otto MDOther ProviderActiveMichael Frings , DOOther ProviderActiveMc Cornejo MDOther ProviderActiveEarelham Angeles MDOther ProviderActiveMarga Mccauley , DIRECTOR OF CUSTOMER ACQUISITION-COther ProviderActiveIndra Guillory MDOther ProviderActiveDavid Fonseca MD Other ProviderActiveHai Aguilera MDOther ProviderActiveAnoPino MDOther ProviderActiveMargerald Urena , DOOther ProviderActiveNeal R Lina , DOOther ProviderActiveAnthony M Miniaci , DOOther ProviderActiveLinda Obika , APRNOther ProviderActiveShradhan Khoi Gross , DOOther ProviderActiveObaydah Guille Jimenez MDOther ProviderActivePaula Aileen Berman , APRNOther ProviderActiveAlicia Arnaldo Pimentel , SENIOR DYNAMICS CRM DEVELOPER Other ProviderActiveVidya Robert MDOther ProviderActiveDagerson Burrell MDOther ProviderActiveKyle Leeann John , DOOther ProviderActivePatricia Brody Murdock , APRNOther ProviderActiveYadontae Drake , DOOther ProviderActiveErma Morillo RNOther ProviderActiveTeam MemberRelationshipSpecialtyStart DateEnd Date Marie Tejeda DO [address] [place] [address] PCP - GeneralInternal Itiafice23/7/23 Team Status: Inactive Member Role Status Dates Marie Tejeda DO Primary Care Provider Active Aryan Carlos ProviderActive Team Status: Inactive Member Role Status Dates Marie Tejeda DO Primary Care Provider Active BRAD Miranda-CEmergency ProviderActiveSushant Cordon , DOAdmit ProviderActiveAshwini Conrad MDOther ProviderActiveGepaula Velasco MDOther ProviderActiveLinbilly Perez MDOther ProviderActiveHumberto Diaz MD Attending ProviderActiveTru Yap MDOther ProviderActive Team Status: Inactive Member Role Status Denis Tejeda DO Primary Care Provider Active Federico Davis DOAttmynra ProviderActive Team Status: Inactive Member Role Status Dates Marie Tejeda DO Primary Care Provider Active Herminio Lakhani MDAttmyrna ProviderActiveTeam MemberRelationshipSpecialtyStart DateEnd Date Marie Tejeda, [address] [place] [address] PCP - [facility] Healthnal Hunydppp13/7/23 Team Status: Inactive Member Role Status Dates Marie Tejeda DO Primary Care Provider Active Start: July 16, 2023 End: July 16, 2023W Saúl Davis DOAttmyrna ProviderActiveStart: July 16, 2023 End: July 16, 2023 Team Status: Inactive Member Role Status Dates Marie Tejeda DO Primary Care Provider Active Start: July 27, 2023 End: July 27, 2023Thomas Lesvia MDAttending ProviderActiveStart: July 27, 2023 End: July 27, 2023 Team Status: Inactive Member Role Status Dates Marie Tejeda DO Primary Care Provider Active Start: August 31, 2023 End: September 06ndRamon Krueger ProviderActiveStart: August 31, 2023 End: September 06, 2023Stoney Werner ProviderActiveStart: August 31, 2023 End: September 06bertin Roland MDOther ProviderActiveStart: August 31, 2023 End: September 06, 2023Stoney Mendieta ProviderActiveStart: August 31, 2023 End: September 06lahe Robert , MDAttending ProviderActiveStart: August 31, 2023 End: September 06, 2023 Team Status: Active Member Role Status Dates Marie Tejeda DO Primary Care Provider Active Start: August 31, 2023 Audi Gaming MDAdmit Provider, Attending Provider, Other ProviderActive Start: August 31, 2023 Stoney Werner ProviderActiveStart: August 31, 2023 Stoney Santamaria ProviderActiveStart: August 31, 2023 Team Status: Active Member Role Status Dates Marie Tejeda DO Primary Care Provider Active Start: August 31, 2023 Audi Gaming MDAdmit Provider, Other ProviderActiveStart: August 31, 2023 Jose Wernerending Provider, Other ProviderActiveStart: August 31, 2023 Beka E Roland , MDOther ProviderActiveStart: August 31, 2023 Team Status: Active Member Role Status Dates Marie Tejeda DO Primary Care Provider Active Start: September 06, 2023 Ramon Angeles ProviderActiveStart: September 06, 2023 Stoney Werner ProviderActiveStart: September 06, 2023 Beka Roland MDOther ProviderActiveStart: September 06, 2023 Aryan Mendieta Provider, Other ProviderActiveStart: September 06, 2023 Vidya Robert MDOther ProviderActiveStart: September 06, 2023 Team Status: Inactive Member Role Status Dates Marie Tejeda DO Primary Care Provider Active Start: September 24, 2023 End: September 23ndAryan Krueger ProviderActiveStart: September 24, 2023 End: September 24, 2023 Team Status: Inactive Member Role Status Dates Marie Tejeda DO Primary Care Provider Active Start: September 27, 2023 End: September 26lewis Flores DIRECTOR OF CUSTOMER ACQUISITION-CAttending ProviderActive Start: September 27, 2023 End: September 27, 2023 Team Status: Inactive Member Role Status Dates Marie Tejeda DO Primary Care Provider Active Start: September 28, 2023 End: September 28, 2023Rachelle Luciano DIRECTOR OF CUSTOMER ACQUISITION-CAttending ProviderActiveStart: September 28, 2023 End: September 28, 2023 Team Status: Inactive Member Role Status Dates Marie Tejeda DO Primary Care Provider Active Start: October 21, 2023 End: October 21, 2023Aryan Werner ProviderActiveStart: October 21, 2023 End: October 21, 2023 Team Status: Inactive Member Role Status Dates Marie Tejeda DO Primary Care Provider Active Start: October 28, 2023 End: October 28, 2023Aryan Brito ProviderActiveStart: October 28, 2023 End: October 28, 2023 Team Status: Active Member Role Status Dates Anat Perez MD Respiratory Clinician Active [facility]UD[facility] ProviderActive Team Status: Inactive Member Role Status Dates Marie Tejeda DO Primary Care Provider Active Start: November 11, 2023 End: November 11, 2023Imad Asaad , MDAttending ProviderActiveStart: November 11, 2023 End: November 11, 2023 Team Status: Active Member Role Status Dates Marie Tejeda DO Primary Care Provider Active Start: November 11, 2023 Imad Asaad , MDAttending Provider, Other ProviderActiveStart: November 11, 2023 Team Status: Active Member Role Status Dates Marie Tejeda DO Primary Care Provider Active Start: February 05, 2024 Elbert Gr ProviderActiveStart: February 05, 2024 Sushant Cordon DOAdmit Provider, Attending ProviderActiveStart: February 05, 2024 Team Status: Inactive Member Role Status Dates Marie Tejeda DO Primary Care Provider Active Start: February 05, 2024 End: February 07Elbert Yo ProviderActiveStart: February 05, 2024 End: February 08, 2024Sushant Cordon DOAdmit ProviderActiveStart: February 05, 2024 End: February 07dona Barraza MDOther ProviderActiveStart: February 05, 2024 End: February 08, 2024Warren Gross DOAttending ProviderActiveStart: February 05, 2024 End: February 08, 2024 Team Status: Active Member Role Status Dates Marie Tejeda DO Primary Care Provider Active Start: February 06, 2024 Elbert Gr ProviderActiveStart: February 06, 2024 Sushant Cordon DOAdmit ProviderActiveStart: February 06, 2024 Nayeli Jimenez MDOther ProviderActiveStart: February 06, 2024 Chela Charles RNOther ProviderActiveStart: February 06, 2024 Yves Han MDOther ProviderActiveStart: February 06, 2024 Chuck Velasco MDOther ProviderActiveStart: February 06, 2024 Anat Perez MDOther ProviderActiveStart: February 06, 2024 Lois Yen DOOther ProviderActiveStart: February 06, 2024 Manuel J Ditty , MDAttending Provider, Other ProviderActiveStart: February 06, 2024 Team Status: Active Member Role Status Dates Marie Tejeda DO Primary Care Provider Active Start: February 06, 2024 Paige Luther MDEmergency ProviderActiveStart: February 06, 2024 Sushant Cordon , DOAdmit ProviderActiveStart: February 06, 2024 Nayeli Jimenez MDOther ProviderActiveStart: February 06, 2024 Chela Charles RNOther ProviderActiveStart: February 06, 2024 Yves Han MDOther ProviderActiveStart: February 06, 2024 Chuck Velasco , MDAttending Provider, Other ProviderActiveStart: February 06, 2024 Stoney Brito ProviderActiveStart: February 06, 2024 Lois Yen DOOther ProviderActiveStart: February 06, 2024 Manuel Barraza MDOther ProviderActiveStart: February 06, 2024 Team Status: Inactive Member Role Status Dates Marie Tejeda DO Primary Care Provider Active Start: February 11, 2024 End: February 11, 2024Warren Gross DOAttending ProviderActiveStart: February 11, 2024 End: February 11, 2024 Team Status: Inactive Member Role Status Dates Marie Tejeda DO Primary Care Provider Active Start: February 14, 2024 End: February 14, 2024Warren Gross DOAttmyrna ProviderActiveStart: February 14, 2024 End: February 14, 2024 Team Status: Inactive Member Role Status Dates Marie Tejeda DO Primary Care Provider Active Start: February 15, 2024 End: February 15, 2024Anat Perez MDAttending ProviderActiveStart: February 15, 2024 End: February 15, 2024 Team Status: Active Member Role Status Dates Marie Tejeda DO Primary Care Provider Active Start: February 15, 2024 Anat Perez MDAttending ProviderActiveStart: February 15, 2024 Team Status: Inactive Member Role Status Dates Marie Tejeda DO Primary Care Provider Active Start: February 16, 2024 End: February 16, 2024Anat Perez MDAttending ProviderActiveStart: February 16, 2024 End: February 16, 2024Warren Gross DOOther ProviderActiveStart: February 16, 2024 End: February 16, 2024 Team Status: Inactive Member Role Status Dates Marie Tejeda DO Primary Care Provider Active Start: February 29, 2024 End: February 29, 2024Linbilly Perez MDAttending ProviderActiveStart: February 29, 2024 End: February 29, 2024 Team Status: Active Member Role Status Dates Marie Tejeda DO Primary Care Provider Active Start: March 08, 2024 Anat Perez MDAttending Provider, Referring ProviderActiveStart: March 08, 2024 Team Status: Inactive Member Role Status Dates Marie Tejeda DO Primary Care Provider Active Start: March 09, 2024 End: March 09, 2024Anat Perez , MDAttending ProviderActiveStart: March 09, 2024 End: March 09, 2024 Team Status: Inactive Member Role Status Dates Marie Tejeda DO Primary Care Provider Active Start: March 10, 2024 End: March 10, 2024Linbilly Perez , MDAttending Provider, Referring Provider ActiveStart: March 10, 2024 End: March 10, 2024 Team Status: Inactive Member Role Status Dates Marie Tejeda DO Primary Care Provider Active Start: March 15, 2024 End: March 15, 2024Linbilly Perez , MDAttending ProviderActiveStart: March 15, 2024 End: March 15, 2024 Team Status: Active Member Role Status Dates Marie Tejeda DO Primary Care Provider Active Start: March 09, 2024 Jose Britoending Provider, Other ProviderActiveStart: March 09, 2024 Team Status: Inactive Member Role Status Dates Marie Tejeda DO Primary Care Provider Active Start: March 27, 2024 End: March 27, 2024Linbilly Perez , MDAttending ProviderActiveStart: March 27, 2024 End: March 27, 2024Team MemberRelationshipSpecialtyStart DateEnd Date Marie Tejeda DO [address] [place] [address] PCP - GeneralInternal Medicine01/08/23 Marie Tejeda DO [address] [place] [address] PCP - ACO Reach09/10/23 Patrick Beard MD [address] [facility] [address] [place] [address] Referring PcadsdsapHtefdpdcgblpjzvj15/7/24 Andrey Grullon MD [address] [place] [address] Referring LxmafshpmJosoogdkr14/7/24 Saúl Davis MD [address] [place] [address] [address] [place] [address] Referring HqkfwrxoaGsghdgdppe95/7/24 Team Status: Active Member Role Status Dates Marie Tejeda DO Primary Care Provider Active Start: April 26, 2024 Jose Magañaending ProviderActiveStart: April 26, 2024 Team Status: Inactive Member Role Status Dates Marie Tejeda DO Primary Care Provider Active Start: April 26, 2024 End: April 26, 2024SoJose Vasquezending ProviderActiveStart: April 26, 2024 End: April 26, 2024 Team Status: Inactive Member Role Status Dates Marie Tejeda DO Primary Care Provider Active Start: April 26, 2024 End: April 26, 2024LinJose Castroending ProviderActiveStart: April 26, 2024 End: April 26, 2024Team MemberRelationshipSpecialtyStart DateEnd Date Marie Tejeda DO [address] [place] [address] PCP - GeneralInternal Medicine01/08/23 Marie Tejeda DO [address] [place] [address] PCP - ACO Reach09/10/23 Patrick Beard MD [address] [facility] [address] [place] [address] Referring VrbnsuwydRvjycatnthotlkrz21/7/24 Andrey Grullon MD [address] [place] [address] Referring ScxrcasmoVyqjyoveg62/7/24 Saúl Davis MD [address] [facility] [address] [place] [address] Referring IusiltqwvJimdbtwdok39/7/24 Team Status: Inactive Member Role Status Dates Marie Tejeda DO Primary Care Provider Active Start: May 10, 2024 End: May 10, 2024Aryan Brito ProviderActiveStart: May 10, 2024 End: May 10, 2024 Team Status: Inactive Member Role Status Dates Marie Tejeda DO Primary Care Provider Active Start: May 16, 2024 End: May 16, 2024Soyunier Root MDAttending ProviderActiveStart: May 16, 2024 End: May 16, 2024 Team Status: Active Member Role Status Dates Marie Tejeda DO Primary Care Provider Active Start: May 24, 2024 Jose Magañaending Provider, Other ProviderActiveStart: May 24, 2024 Team Status: Inactive Member Role Status Dates Marie Tejeda DO Primary Care Provider Active Start: May 24, 2024 End: May 25, 2024Abdulaziz Root MDAdmit Provider, Attending ProviderActiveStart: May 24, 2024 End: May 25, 2024 Team Status: Active Member Role Status Dates Marie Tejeda DO Primary Care Provider Active Start: May 25, 2024 Abdulaziz Root , MDAdmit Provider, Attending Provider, Other ProviderActive Start: May 25, 2024 Team Status: Active Member Role Status Dates Marie Tejeda DO Primary Care Provider Active Start: May 25, 2024 Abdulaziz Root , RAHEELdmit Provider, Other ProviderActiveStart: May 25, 2024 Chuck Velasco , MDAttending ProviderActiveStart: May 25, 2024 Team MemberRelationshipSpecialtyStart DateEnd Date Marie Tejeda DO [address] [place] [address] PCP - GeneralInternal Medicine01/08/23 Marie Tejeda DO [address] [place] [address] PCP - ACO Reach09/10/23 Patrick Beard MD [address] [facility] [address] [place] [address] Referring PecurgyohNmjpickbhsivvjrw95/7/24 Andrey Grullon MD [address] [place] [address] Referring QbmdpuaqsIuubixnih43/7/24 Saúl Davis MD [address] [place] [address] [address] [place] [address] Referring OconjwlkqRbrcsihhpg48/7/24Team MemberRelationshipSpecialtyStart Date End Date Marie Tejeda DO [address] [place] [address] PCP - GeneralInternal Medicine01/08/23 Marie Tejeda DO [address] [place] [address] PCP - ACO Reach09/10/23 Patrick Beard MD [address] [facility] [address] [place] [address] Referring ZfsgifmckWjdqffejsifmbkpn27/7/24 Andrey Grullon MD [address] [place] [address] Referring WljinqkdgAepnwczks19/7/24 Saúl Davis MD [address] [facility] [address] [place] [address] Referring RghiyvdgnZmwukjcqer48/7/24Team MemberRelationshipSpecialtyStart Date End Date Marie Tejeda DO [address] [place] [address] PCP - GeneralInternal Medicine03/30/18 Anatoly Anne CNP [address] [place] [address] ReferringInternal Lfqsdtpb90/16/24Team MemberRelationshipSpecialtyStart DateEnd Date Marie Tejeda DO [address] [place] [address] PCP - GeneralInternal Medicine03/30/18 Anatoly Anne CNP [address] [place] [address] ReferringInternal Tkxkrakt93/16/24Team MemberRelationshipSpecialtyStart DateEnd Date Marie Tejeda DO [address] [place] [address] PCP - GeneralInternal Medicine01/08/23 Marie Tejeda DO [address] [place] [address] PCP - ACO Reach09/10/23 Patrick Beard MD [address] [facility] [address] [place] [id number] Referring DpdjbmlqgMgivwddgldycwkwx34/7/24 Andrey Grullon MD [address] [place] [address] Referring EncxrrgjyKjvjwnobp70/7/24 Saúl Davis MD [address] [facility] [address] [place] [address] Referring UqjcqybfcXowevlriku97/7/24Team MemberRelationshipSpecialtyStart Date End Date Marie Tejeda DO [address] [place] [address] PCP - GeneralInternal Medicine01/08/23 Marie Tejeda DO [address] [place] [address] PCP - ACO Reach09/10/23 Patrick Beard MD [address] [facility] [address] [place], [place] [id number] Referring AdzekpsatJsqtehmonzuphbth80/7/24 Andrey Grullon MD [address] [place] [address] Referring NqtqktxalBgefxsplo87/7/24 Saúl Daivs MD [address] [place] [address] Referring RkeleyepfFgvrwkfgqs75/7/24Team MemberRelationshipSpecialtyStart Date End Date Marie Tejeda DO [address] [place] [address] PCP - GeneralInternal Medicine03/30/18 Anatoly Anne CNP [address] [place] [address] ReferringInternal Jbdfzudw46/16/24Team MemberRelationshipSpecialtyStart DateEnd Date Marie Tejeda DO [address] [place] [address] PCP - GeneralInternal Medicine03/30/18 Anatoly Anne CNP [address] [place] [address] ReferringInternal Rdyyypgp65/16/24 Team Status: Inactive Member Role Status Dates Marie Tejeda DO Primary Care Provider Active Start: June 16, 2024 End: June 18, 2024Washington Rhoades ProviderActiveStart: June 16, 2024 End: June 18rpRamon Fishman Provider, Attending ProviderActive Start: June 16, 2024 End: June 18, 2024Gray Higgins MDOther ProviderActiveStart: June 16, 2024 End: June 18, 2024 Team Status: Inactive Member Role Status Dates Marie Tejeda DO Primary Care Provider Active Start: June 19, 2024 End: June 21, 2024Sushant Cordon DOAdmit Provider, Attending ProviderActiveStart: June 19, 2024 End: June 21, 2024Stephanie Sheridan , Other ProviderActiveStart: June 19, 2024 End: June 21Stoney Gonsales ProviderActiveStart: June 19, 2024 End: June 21girish Corrales DOOther ProviderActiveStart: June 19, 2024 End: June 21, 2024 Team Status: Active Member Role Status Dates Marie Tejeda DO Primary Care Provider Active Start: June 20, 2024 Sushant Cordon DOAdmit Provider, Other ProviderActiveStart: June 20, 2024 Stephanie Sheridan , DOOther ProviderActiveStart: June 20, 2024 Stoney Kelsey ProviderActiveStart: June 20, 2024 Thierno Corrales DOOther ProviderActiveStart: June 20, 2024 Abdulaziz Root , MDAttending ProviderActiveStart: June 20, 2024 Team Status: Active Member Role Status Dates Marie Tejeda DO Primary Care Provider Active Start: July 16, 2024 Doris Alarcon ProviderActiveStart: July 16, 2024 Indra Guillory , MDAdmit Provider, Attending ProviderActiveStart: July 16, 2024 Team Status: Inactive Member Role Status Dates Marie Tejeda DO Primary Care Provider Active Start: July 16, 2024 End: July 17, 2024Doris Alarcon ProviderActiveStart: July 16, 2024 End: July 17, 2024Indra Guillory , MDAdmit ProviderActiveStart: July 16, 2024 End: July 17, 2024Lisa Hidalgo , MDAttending ProviderActiveStart: July 16, 2024 End: July 17, 2024 Team Status: Active Member Role Status Dates Marie Tejeda DO Primary Care Provider Active Start: July 17, 2024 Bertin Smith , DOEmergency ProviderActiveStart: July 17, 2024 Indra Guillory , MDAdmit ProviderActiveStart: July 17, 2024 Stoney Knapp ProviderActiveStart: July 17, 2024 Chuck Velasco , MDAttending ProviderActiveStart: July 17, 2024 Team MemberRelationshipSpecialtyStart DateEnd Date Marie Tejeda DO [address] [place] [address] PCP - GeneralInternal Medicine01/08/23 Marie Tejeda DO [address] [place] [address] PCP - ACO Reach09/10/23 Patrick Beard MD [facility] [facility] [address] [place] [address] Referring BwycgdivjUrzhdnyelmiilcry06/7/24 Andrey Grullon MD [address] [place] [address] Referring UdwjnwtnmKrjkzmpua32/7/24 Saúl Davis MD [address] [place] [address] [address] [place] [address] Referring EzwchfqwoAbipouytxz18/7/24Team MemberRelationshipSpecialtyStart Date End Date Marie Tejeda DO [address] [place] [address] PCP - GeneralInternal Medicine01/08/23 Marie Tejeda DO [address] [place] [address] PCP - ACO Reach09/10/23 Patrick Beard MD 1 [facility] [address] [place] [address] Referring JpksgeuedGppyuxtnjtekdytq32/7/24 Andrey Grullon MD [address] [place] [address] Referring MvtqcjhxdZmqvrgymd44/7/24 Saúl Davis MD [address] [facility] [address] [place] [address] Referring VqclpvuzmQsjuhlpsjw67/7/24Team MemberRelationshipSpecialtyStart Date End Date Marie Tejeda DO [address] [place] [address] PCP - GeneralInternal Medicine03/30/18 Anatoly Anne CNP [address] [place] [address] ReferringInternal Miiqrmue01/16/24Team MemberRelationshipSpecialtyStart DateEnd Date Marie Tejeda DO [address] [place] [address] PCP - GeneralInternal Medicine03/30/18 Anatoly Anne CNP [address] [place] [address] ReferringInternal Baesprka05/16/24Team MemberRelationshipSpecialtyStart DateEnd Date Marie Tejeda DO [address] [place] [address] PCP - GeneralInternal Medicine03/30/18 Anatoly Anne APRN.CNP [address] [place] [address] ReferringInternal Dtbxmvxp64/16/24 Team Status: Active Member Role Status Dates Marie Tejeda DO Primary Care Provider Active Start: August 29, 2024 Anat Perez , MDReferring ProviderActiveStart: August 29, 2024 Abdulaziz Root , MDAttending Provider, Other ProviderActiveStart: August 29, 2024 Team MemberRelationshipSpecialtyStart DateEnd Date Marie Tejeda DO [address] [place] [address] PCP - GeneralInternal Medicine01/08/23 Marie Tejeda DO [address] [place] [address] PCP - ACO Reach09/10/23 Patrick Beard MD 1 [facility] [address] [place], [place] [address] Referring VwccmbkrsHtxljbpvnxzkowkg30/7/24 Andrey Grullon MD [address] [place] [address] Referring IgmcgnyioUuuoiylgl35/7/24 Saúl Davis MD [address] [facility] [address] [place] [address] Referring GpwylfzwhAkdcbvyapj60/7/24 Team Status: Inactive Member Role Status Dates Marie Tejeda DO Primary Care Provider Active Start: August 31, 2024 End: August 31, 2024Jose Britoending ProviderActiveStart: August 31, 2024 End: August 31, 2024Team MemberRelationshipSpecialtyStart DateEnd Date Marie Tejeda DO [address] [place] [address] PCP - GeneralInternal Medicine03/30/18 Anatoly Anne, SENIOR DYNAMICS CRM DEVELOPER.UTILITY SYSTEM OPERATOR [address] [place] [address] ReferringInternal Srvybhlg50/16/24Team MemberRelationshipSpecialtyStart DateEnd Date Marie Tejeda DO [address] [place] [address] PCP - GeneralInternal Medicine03/30/18 Anatoly Anne, SENIOR DYNAMICS CRM DEVELOPER.UTILITY SYSTEM OPERATOR [address] [place] [address] ReferringInternal Qvaaacyt73/16/24Team MemberRelationshipSpecialtyStart DateEnd Date Marie Tejeda DO [address] [place] [address] PCP - GeneralInternal Medicine01/08/23 Marie Tejeda DO [address] [place] [address] PCP - ACO Reach09/10/23 Patrick Beard MD 1 [facility] [address] [place] [address] Referring OimdotzayNctmtipfznijpani96/7/24 Andrey Grullon MD [address] [place] [address] Referring TysprxpmcAnxjsfuwe64/7/24 Saúl Davis MD [address] [facility] [address] [place] [address] Referring AhnvqxverRosjznmvxe52/7/24Team MemberRelationshipSpecialtyStart Date End Date Marie Tejeda DO [address] [place] [address] PCP - GeneralInternal Medicine03/30/18 Anatoly Anne, SENIOR DYNAMICS CRM DEVELOPER.UTILITY SYSTEM OPERATOR [address] [place] [address] ReferringInternal Dwsikfjl29/16/24Team MemberRelationshipSpecialtyStart DateEnd Date Marie Tejeda DO [address] [place] [address] PCP - GeneralInternal Medicine03/30/18 Anatoly Anne, SENIOR DYNAMICS CRM DEVELOPER.UTILITY SYSTEM OPERATOR [address] [place] [address] ReferringInternal Jsfzahhf03/16/24Team MemberRelationshipSpecialtyStart DateEnd Date Marie Tejeda DO [address] [place] [address] PCP - GeneralInternal Medicine03/30/18 Anatoly Anne, SENIOR DYNAMICS CRM DEVELOPER.UTILITY SYSTEM OPERATOR [address] [place] [address] ReferringInternal Laictvcz53/16/24Team MemberRelationshipSpecialtyStart DateEnd Date Marie Tejeda DO [address] [place] [address] PCP - GeneralInternal Medicine03/30/18 [facility], SENIOR DYNAMICS CRM DEVELOPER.UTILITY SYSTEM OPERATOR [address] [place] [address] ReferringInternal Emivmuzl29/16/24Team MemberRelationshipSpecialtyStart DateEnd Date Marie Tejeda, DO [address] [place] [address] PCP - GeneralInternal Medicine03/30/18 [facility], SENIOR DYNAMICS CRM DEVELOPER.UTILITY SYSTEM OPERATOR [address] [place] [address] ReferringInternal Irruznkh60/16/24Team MemberRelationshipSpecialtyStart DateEnd Date Marie Tejeda, DO [address] [place] [address] PCP - GeneralInternal Medicine03/30/18 [facility], [facility], SENIOR DYNAMICS CRM DEVELOPER.UTILITY SYSTEM OPERATOR [address] [place] [address] ReferringInternal Hwnveaqh43/16/24Team MemberRelationshipSpecialtyStart DateEnd Date Marie Tejeda, DO [address] [place] [address] PCP - GeneralInternal Medicine03/30/18 Anatoly Anne, SENIOR DYNAMICS CRM DEVELOPER.UTILITY SYSTEM OPERATOR [address] [place] [address] ReferringInternal Nawasqpd93/16/24Team MemberRelationshipSpecialtyStart DateEnd Date Marie Tejeda DO [address] [place] [address] PCP - GeneralInternal Medicine03/30/18 Anatoly Anne, SENIOR DYNAMICS CRM DEVELOPER.UTILITY SYSTEM OPERATOR [address] [place] [address] ReferringInternal Nuizboab76/16/24Team MemberRelationshipSpecialtyStart DateEnd Date Marie Tejeda DO [address] [place] [address] PCP - GeneralInternal Medicine03/30/18 Anatoly Anne, SENIOR DYNAMICS CRM DEVELOPER.UTILITY SYSTEM OPERATOR [address] [place] [address] ReferringInternal Wyrtfgbt24/16/24 Team Status: Inactive Member Role Status Dates Marie Tejeda DO Primary Care Provider Active Start: October 13, 2024 End: October 13, 2024Linda AnaRAHEEL stephenttmyrna ProviderActiveStart: October 13, 2024 End: October 13, 2024Team MemberRelationshipSpecialtyStart DateEnd Date Marie Tejeda DO [address] [place] [address] PCP - GeneralInternal Medicine01/08/23 Marie Tejeda DO [address] [place] [address] PCP - ACO Reach09/10/23 Patrick Beard MD 1 [facility] [address] [place] [address] Referring BxhitffsbLgabwuxyhqylvntz63/7/24 Andrey Grullon MD [address] [place] [address] Referring MfbjuwucmYfztgwzvf32/7/24 Saúl Davis MD 703 [facility] 2, [address] [place] [address] Referring PjhdqslvaBivzgnqwll89/7/24Team MemberRelationshipSpecialtyStart Date End Date Marie Tejeda DO [address] [place] [address] PCP - GeneralInternal Medicine03/30/18 Anatoly Anne APRN.UTILITY SYSTEM OPERATOR [address] [place] [address] ReferringInternal Mvobptpz82/16/24Team MemberRelationshipSpecialtyStart DateEnd Date Marie Tejeda DO [address] [place] [address] PCP - GeneralInternal Medicine03/30/18 Anatoly Anne APRN.UTILITY SYSTEM OPERATOR [address] [place] [address] ReferringInternal Vpcwuieu94/16/24 Team Status: Active Member Role Status Dates Marie Tejeda DO Primary Care Provider Active Start: November 30, 2024 Anat Perez MDOther ProviderActiveStart: November 30, 2024 Abdulaziz Root MDAttending ProviderActiveStart: November 30, 2024 Team MemberRelationshipSpecialtyStart DateEnd Date Marie Tejeda DO [address] [place] [address] PCP - GeneralInternal Medicine03/30/18 Cally, Anatoly, SENIOR DYNAMICS CRM DEVELOPER.UTILITY SYSTEM OPERATOR [address] [place] [address] ReferringInternal Zsuokfvq33/16/24Team MemberRelationshipSpecialtyStart DateEnd Date Marie Tejeda DO [address] [place] [address] PCP - GeneralInternal Medicine03/30/18 Cally, Anatoly, SENIOR DYNAMICS CRM DEVELOPER.UTILITY SYSTEM OPERATOR [address] [place] [address] ReferringInternal Vqomtbwn54/16/24Team MemberRelationshipSpecialtyStart DateEnd Date Marie Tejeda DO [address] [place] [address] PCP - GeneralInternal Medicine03/30/18 Cally, Anatoly, SENIOR DYNAMICS CRM DEVELOPER.UTILITY SYSTEM OPERATOR [address] [place] [address] ReferringInternal Oxtvtebx46/16/24Team MemberRelationshipSpecialtyStart DateEnd Date Marie Tejeda DO [address] [place] [address] PCP - GeneralInternal Medicine01/08/23 Marie Tejeda DO [address] [place] [address] PCP - ACO Reach09/10/23 Patrick Beard MD 1 [facility] [address] [place] [address] Referring EpwmkruihRhszgfvwsxwcrbof51/7/24 Andrey Grullon MD [address] [place] [address] Referring TzhnvzwgyXjmswsbxp80/7/24 Saúl Davis MD 703 [facility] 2, [address] [place] [address] Referring ValypckirUpkdhpiwgz36/7/24Team MemberRelationshipSpecialtyStart Date End Date Marie Tejeda DO [address] [place] [address] PCP - GeneralInternal Medicine01/08/23 Marie Tejeda DO [address] [place] [address] PCP - ACO Reach09/10/23 Patrick Beard MD 1 [facility] [address] [place] [address] Referring VivkupyyeQgqkhbdfitwcukuh68/7/24 Andrey Grullon MD [address] [place] [address] Referring CrxzqwqdpPbfvhvqei28/7/24 Saúl Davis MD [address]03 [facility] 2, [address] [place] [address] Referring OdyzshfwbIcupvmpgef37/7/24Team MemberRelationshipSpecialtyStart Date End Date Marie Tejeda DO [address] [place] [address] PCP - GeneralInternal Medicine01/08/23 Marie Tejeda DO [address] [place] [address] PCP - ACO Reach09/10/23 Patrick Beard MD 1 [facility] [address] [place] [address] Referring QinbpwvkjUkswofvkvcbwsmwm10/7/24 Andrey Grullon MD [address] [place] [address] Referring UffwormjyJawpitqxt08/7/24 Saúl Davis MD [address]03 [facility] 2[address] [place] [address] Referring UfwqmwjvfVthtnlfuux98/7/24 Team Status: Active Member Role Status Dates Marie Tejeda DO Primary Care Provider Active Start: March 02, 2025 Anat Perez MDOther ProviderActiveStart: March 02, 2025 Abdulaziz Root MDAttending ProviderActiveStart: March 02, 2025 Team MemberRelationshipSpecialtyStart DateEnd Date Marie Tejeda DO [address] [place] [address] PCP - GeneralInternal Medicine03/30/18 Anatoly Anne APRN.UTILITY SYSTEM OPERATOR [address] [place] [address] ReferringInternal Vhbdmfxv51/16/24 Team Status: Inactive Member Role Status Dates Marie Tejeda DO Primary Care Provider Active Start: March 27, 2025 End: March 27, 2025Linda Aryan Perez ProviderActiveStart: March 27, 2025 End: March 27, 2025Team MemberRelationshipSpecialtyStart DateEnd Date Marie Tejeda DO [address] [place] [address] PCP - GeneralInternal Medicine01/08/23 Marie Tejeda DO [address] [facility] [address] [place] [address] PCP - ACO Reach09/10/23 Patrick Beard MD 1 [facility] [address] [place] [address] Referring LsmbptbiiEfewgporxfdmvvpm11/7/24 Andrey Grullon MD [address] [place] [address] Referring BawdjvqatQulsqppmy90/7/24 Saúl Davis MD [address] [place] [address] [address], [address] [place] [address] Referring NgmynovhdWcbyfenlkx58/7/24Team MemberRelationshipSpecialtyStart Date End Date Marie Tejeda DO [address] [place] [address] PCP - GeneralInternal Medicine01/08/23 Marie Tejeda DO [address] [place] [address] PCP - ACO Reach09/10/23 Patrick Beard MD 1 [facility] [address] [place] [address] Referring YpqmolmrzOflyiihdfeghwuxo83/7/24 Andrey Grullon MD [address] [place] [address] Referring WsmtxaeirVuungyouw50/7/24 Saúl Davis MD [address] [place] [address] [address], [address] [place] [address] Referring YonyeqbtqEosnyubrla24/7/24 Team Status: Active Member Role/Relationship Status Dates Anat Perez MD Respiratory Clinician Active Shikha Aguilera Care ProviderActive Team Status: Active Member Role/Relationship Status Dates Marie Tejeda DO Primary Care Provider Active Start: March 02, 2025 Anat Perez MDOther ProviderActiveStart: March 02, 2025 Aryan Magaña ProviderActiveStart: March 02, 2025 Team Status: Inactive Member Role/Relationship Status Dates Marie Tejeda DO Primary Care Provider Active Start: March 27, 2025 End: March 27, 2025Aryan Brito ProviderActiveStart: March 27, 2025 End: March 27, 2025 Team Status: Inactive Member Role/Relationship Status Dates Marie Tejeda DO Primary Care Provider Active Start: May 09, 2025 End: May 09, 2025Aryan Brito ProviderActiveStart: May 09, 2025 End: May 09, 2025Team MemberRelationshipSpecialtyStart DateEnd Date Marie Tejeda DO [address] [place] [address] PCP - GeneralInternal Medicine01/08/23 Marie Tejeda DO [address] [place] [address] PCP - ACO Reach09/10/23 Patrick Beard MD 1 [facility] [address] [place] [address] Referring EsudjlymyXnsnqnhpekgxtnnr94/7/24 Andrey Grullon MD [address] [place] [address] Referring NaqkqzczeWivzhpxpe28/7/24 Saúl Davis MD [address] [place] [address] [address], [address] [place] [address] Referring TpikbrkmtQqmqotddqh29/7/24Team MemberRelationshipSpecialtyStart Date End Date Almita Deras DO [address] [place] [address] PCP - ACO Reach Marie Tejeda DO [address] [place] [address] PCP - GeneralInternal Medicine01/08/23 Marie Tejeda DO [address] [place] [address] PCP - ACO Reach09/10/23 Patrick Beard MD 1 [facility] [address] [place] [address] Referring XwvqdbezjQfaepjmjlqwioafd63/7/24 Andrey Grullon MD [address] [place] [address] Referring KeixdekdkAvlhbkkrt65/7/24 Saúl Davis MD [address] [place] [address] [address], [address] [place] [address] Referring XqabrqbleHvwrcggwyo72/7/24Team MemberRelationshipSpecialtyStart Date End Date Marie Tejeda DO [address] [place] [address] PCP - GeneralInternal Medicine01/08/23 Marie Tejeda DO [address] [place] [address] PCP - ACO Reach09/10/23 Patrick Beard MD 1 [facility] [address] [place] [address] Referring WoidqefcmXchgqwfmrocnoqmb25/7/24 Andrey Grullon MD [address] [place] [address] Referring SwffhoemfHpgrnolsc48/7/24 Saúl Davis MD [address] [facility], [address] [place] [address] Referring PyxcnphrqKkdovesbqy66/7/24 (unrecognized sect ion and content) No Status Records FoundNo Status Records FoundNo Status Records FoundNo Status Records FoundNo Status Records FoundNo Status Records FoundNo Status Records FoundNo Status Records FoundNo Status Records FoundNo Status Records FoundNo Status Records FoundNo Status Records FoundNo Status Records FoundNo Status Records Found INFORMATION SOURCE (unrecogn ized section and content) DATE CREATED AUTHOR 01/29/2022 [facility] DATE CREATED AUTHOR AUTHOR'S ORGANIZ ATION 06/11/2022 [facility] DATE CREATED AUTHOR AUTHOR'S ORGANIZ ATION 06/12/2023 [facility] DATE CREATED AUTHOR AUTHOR'S ORGANIZ ATION 10/23/2023 [facility] DATE CREATED AUTHOR AUTHOR'S ORGANIZ ATION 11/18/2023 [facility] DATE CREATED AUTHOR AUTHOR'S ORGANIZ ATION 01/27/2024 [facility] DATE CREATED AUTHOR AUTHOR'S ORGANIZ ATION 05/05/2024 [facility] DATE CREATED AUTHOR AUTHOR'S ORGANIZ ATION 03/08/2025 [facility] DATE CREATED AUTHOR AUTHOR'S ORGANIZ ATION 05/03/2025 [facility] DATE CREATED AUTHOR AUTHOR'S ORGANIZ ATION 05/04/[address] [facility] DATE CREATED AUTHOR AUTHOR'S ORGANIZ ATION 05/19/2025 [facility] DATE CREATED AUTHOR AUTHOR'S ORGANIZ ATION 05/22/2025 [facility] DATE CREATED AUTHOR AUTHOR'S ORGANIZ ATION 05/23/2025 [facility] Source Comments (unrecognize d section and content) In the event this informatio n is protected by the Federal Confidentiality of Alcohol and Drug Abuse Patient Records regulations: The Federal rules restrict any use of the information to criminally investigate or prosecute any alcohol or drug abuse patient.[facility] HospitalIn the event this information is protected by the Federal Confidentiality of Alcohol and Drug Abuse Patient Records regulations: The Federal rules restrict any use of the information to criminally investigate or prosecute any alcohol or drug abuse patient.[facility] HospitalIn the event this information is protected by the Federal Confidentiality of Alcohol and Drug Abuse Patient Records regulations: The Federal rules restrict any use of the information to criminally investigate or prosecute any alcohol or drug abuse patient.[facility] HospitalIn the event this information is protected by the Federal Confidentiality of Alcohol and Drug Abuse Patient Records regulations: The Federal rules restrict any use of the information to criminally investigate or prosecute any alcohol or drug abuse patient.[facility] HospitalIn the event this information is protected by the Federal Confidentiality of Alcohol and Drug Abuse Patient Records regulations: The Federal rules restrict any use of the information to criminally investigate or prosecute any alcohol or drug abuse patient.[facility] HospitalIn the event this information is protected by the Federal Confidentiality of Alcohol and Drug Abuse Patient Records regulations: The Federal rules restrict any use of the information to criminally investigate or prosecute any alcohol or drug abuse patient.[facility] HospitalIn the event this information is protected by the Federal Confidentiality of Alcohol and Drug Abuse Patient Records regulations: The Federal rules restrict any use of the information to criminally investigate or prosecute any alcohol or drug abuse patient.[facility] HospitalIn the event this information is protected by the Federal Confidentiality of Alcohol and Drug Abuse Patient Records regulations: The Federal rules restrict any use of the information to criminally investigate or prosecute any alcohol or drug abuse patient.[facility] HospitalIn the event this information is protected by the Federal Confidentiality of Alcohol and Drug Abuse Patient Records regulations: The Federal rules restrict any use of the information to criminally investigate or prosecute any alcohol or drug abuse patient.[facility] HospitalIn the event this information is protected by the Federal Confidentiality of Alcohol and Drug Abuse Patient Records regulations: The Federal rules restrict any use of the information to criminally investigate or prosecute any alcohol or drug abuse patient.[facility] HospitalIn the event this information is protected by the Federal Confidentiality of Alcohol and Drug Abuse Patient Records regulations: The Federal rules restrict any use of the information to criminally investigate or prosecute any alcohol or drug abuse patient.[facility] HospitalIn the event this information is protected by the Federal Confidentiality of Alcohol and Drug Abuse Patient Records regulations: The Federal rules restrict any use of the information to criminally investigate or prosecute any alcohol or drug abuse patient.[facility] HospitalIn the event this information is protected by the Federal Confidentiality of Alcohol and Drug Abuse Patient Records regulations: The Federal rules restrict any use of the information to criminally investigate or prosecute any alcohol or drug abuse patient.[facility] HospitalIn the event this information is protected by the Federal Confidentiality of Alcohol and Drug Abuse Patient Records regulations: The Federal rules restrict any use of the information to criminally investigate or prosecute any alcohol or drug abuse patient.[facility] HospitalIn the event this information is protected by the Federal Confidentiality of Alcohol and Drug Abuse Patient Records regulations: The Federal rules restrict any use of the information to criminally investigate or prosecute any alcohol or drug abuse patient.[facility] HospitalIn the event this information is protected by the Federal Confidentiality of Alcohol and Drug Abuse Patient Records regulations: The Federal rules restrict any use of the information to criminally investigate or prosecute any alcohol or drug abuse patient.[facility] HospitalIn the event this information is protected by the Federal Confidentiality of Alcohol and Drug Abuse Patient Records regulations: The Federal rules restrict any use of the information to criminally investigate or prosecute any alcohol or drug abuse patient.[facility] HospitalIn the event this information is protected by the Federal Confidentiality of Alcohol and Drug Abuse Patient Records regulations: The Federal rules restrict any use of the information to criminally investigate or prosecute any alcohol or drug abuse patient.[facility] HospitalIn the event this information is protected by the Federal Confidentiality of Alcohol and Drug Abuse Patient Records regulations: The Federal rules restrict any use of the information to criminally investigate or prosecute any alcohol or drug abuse patient.[facility] HospitalIn the event this information is protected by the Federal Confidentiality of Alcohol and Drug Abuse Patient Records regulations: The Federal rules restrict any use of the information to criminally investigate or prosecute any alcohol or drug abuse patient.[facility] HospitalIn the event this information is protected by the Federal Confidentiality of Alcohol and Drug Abuse Patient Records regulations: The Federal rules restrict any use of the information to criminally investigate or prosecute any alcohol or drug abuse patient.[facility] HospitalIn the event this information is protected by the Federal Confidentiality of Alcohol and Drug Abuse Patient Records regulations: The Federal rules restrict any use of the information to criminally investigate or prosecute any alcohol or drug abuse patient.[facility] HospitalIn the event this information is protected by the Federal Confidentiality of Alcohol and Drug Abuse Patient Records regulations: The Federal rules restrict any use of the information to criminally investigate or prosecute any alcohol or drug abuse patient.[facility] HospitalIn the event this information is protected by the Federal Confidentiality of Alcohol and Drug Abuse Patient Records regulations: The Federal rules restrict any use of the information to criminally investigate or prosecute any alcohol or drug abuse patient.[facility] HospitalIn the event this information is protected by the Federal Confidentiality of Alcohol and Drug Abuse Patient Records regulations: The Federal rules restrict any use of the information to criminally investigate or prosecute any alcohol or drug abuse patient.[facility] HospitalIn the event this information is protected by the Federal Confidentiality of Alcohol and Drug Abuse Patient Records regulations: The Federal rules restrict any use of the information to criminally investigate or prosecute any alcohol or drug abuse patient.[facility] HospitalIn the event this information is protected by the Federal Confidentiality of Alcohol and Drug Abuse Patient Records regulations: The Federal rules restrict any use of the information to criminally investigate or prosecute any alcohol or drug abuse patient.[facility] HospitalIn the event this information is protected by the Federal Confidentiality of Alcohol and Drug Abuse Patient Records regulations: The Federal rules restrict any use of the information to criminally investigate or prosecute any alcohol or drug abuse patient.[facility] HospitalIn the event this information is protected by the Federal Confidentiality of Alcohol and Drug Abuse Patient Records regulations: The Federal rules restrict any use of the information to criminally investigate or prosecute any alcohol or drug abuse patient.[facility] HospitalIn the event this information is protected by the Federal Confidentiality of Alcohol and Drug Abuse Patient Records regulations: The Federal rules restrict any use of the information to criminally investigate or prosecute any alcohol or drug abuse patient.[facility] HospitalIn the event this information is protected by the Federal Confidentiality of Alcohol and Drug Abuse Patient Records regulations: The Federal rules restrict any use of the information to criminally investigate or prosecute any alcohol or drug abuse patient.[facility] HospitalIn the event this information is protected by the Federal Confidentiality of Alcohol and Drug Abuse Patient Records regulations: The Federal rules restrict any use of the information to criminally investigate or prosecute any alcohol or drug abuse patient.[facility] HospitalIn the event this information is protected by the Federal Confidentiality of Alcohol and Drug Abuse Patient Records regulations: The Federal rules restrict any use of the information to criminally investigate or prosecute any alcohol or drug abuse patient.[facility] HospitalIn the event this information is protected by the Federal Confidentiality of Alcohol and Drug Abuse Patient Records regulations: The Federal rules restrict any use of the information to criminally investigate or prosecute any alcohol or drug abuse patient.[facility] HospitalIn the event this information is protected by the Federal Confidentiality of Alcohol and Drug Abuse Patient Records regulations: The Federal rules restrict any use of the information to criminally investigate or prosecute any alcohol or drug abuse patient.[facility] HospitalIn the event this information is protected by the Federal Confidentiality of Alcohol and Drug Abuse Patient Records regulations: The Federal rules restrict any use of the information to criminally investigate or prosecute any alcohol or drug abuse patient.[facility] HospitalIn the event this information is protected by the Federal Confidentiality of Alcohol and Drug Abuse Patient Records regulations: The Federal rules restrict any use of the information to criminally investigate or prosecute any alcohol or drug abuse patient.[facility] HospitalIn the event this information is protected by the Federal Confidentiality of Alcohol and Drug Abuse Patient Records regulations: The Federal rules restrict any use of the information to criminally investigate or prosecute any alcohol or drug abuse patient.[facility] Goals (unrecognized section and content) Goals [...] BE BASED ON THE PRIMARY CLINICAL RECORDS. [facility]. provides no warranty or guarantee of the accuracy or completeness of information in this document.
[2025-06-20 13:49] LABS: Basophils Abs Manual 0.00 10^3/uL (0.00-0.10); Basophils Percent Manual 0.0 % (0.2-2.0); Eosinophils Absolute Manual 0.00 10^3/uL (0.00-0.70); Eosinophils Percent Manual 0.0 % (0.9-7.0); Lymphocytes Absolute Manual 1.05 10^3/uL (1.20-3.80); Lymphocytes Percent Manual 6.0 % (20.5-60.0); Monocytes Absolute Manual 0.70 10^3/uL (0.30-0.80); Monocytes Percent Manual 4.0 % (1.7-12.0); Segmented Neut Absolute Manual 15.75 10^3/uL (1.4-6.5); Segmented Neutrophils % Manual 90.0 (43.0-75.0)
[2025-06-20 14:45] LABS: Glucose Urine UA NEGATIVE (NEGATIVE)
[2025-06-20 15:00] LABS: Cast Seen? NONE SEEN #/LPF (NONE SEEN); Crystals Seen? None Seen #/HPF (None Seen); Urine Culture Indicated YES-FRMC
--- NOTE | 2025-06-20 15:08 | CT_ITS ---
The [address] [address] Patient Name: ASHWINI VICKERS MRN: [id number] date: 1935 Sex: M Assigned Patient Location: ER Current Patient Location: ER Accession/Order Number: [id number] Exam Date: 06/20/2025 15:25 Report Date: 06/20/2025 16:16 At the request of: KESHA GUTIÉRREZ MD Procedure: CT abdomen pelvis wo con CT ABDOMEN AND PELVIS WITHOUT INTRAVENOUS CONTRAST: CLINICAL HISTORY: UTI, back pain, rule out obstruction COMPARISON: CT abdomen pelvis 04/10/2025 TECHNIQUE: Spiral images were obtained through the abdomen and pelvis without intravenous contrast. This CT exam was performed using one or more following dose reduction techniques: Automated exposure control, adjustment of the mA and/or kV according to patient size, or use of iterative reconstruction technique. FINDINGS: Lung Bases: [Mild predominantly subpleural interstitial thickening both lung bases mildly progressed. Worsening atelectasis/consolidation right middle lobe, favor atelectasis. Minor interstitial] edema and thickening. Organs:Evaluation degraded due to the lack of contrast. Cholecystectomy. Bilateral hydroureteronephrosis involving the kidneys. Bilateral calculi noted largest right lower pole up to 3 mm in size. Left-sided calculi noted up to 4 mm in size. Right superior pole cyst. There is dilatation of both ureters. Surgical clips expected location of the pancreatic head noted of uncertain significance, correlate with operative history recommended. GI: Moderate[stool burden. No definite bowel obstruction. Colonic diverticulosis. Appendix is not definitively identified. Tubular structure on image 23, series 5 coronal images could represent a normal appendix. No pericecal inflammatory changes. Pelvis:[Bladder mildly distended. Bladder wall thickening. Suspected bladder diverticula. 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 No adenopathy. Abd wall/Bones: Multilevel degenerative changes of the lumbar spine. Postsurgical changes right hip noted. CT/CT abdomen pelvis wo con IMPRESSION: Moderate severe hydroureteronephrosis identified with bladder distention. Possibly related to enlarged prostate. Please correlate with exam findings. Colonic diverticulosis. Slight progression of interstitial thickening and likely interstitial edema involving the lung base. Impression dictated by: Eulogio Winslow M.D. 06/20/2025 4:16 PM Dictation Location: [place] [address] Electronically authenticated by: [id number] Y Date: 06/20/2025 16:16
[2025-06-20] MEDS: 0.9 % SODIUM CHLORIDE 1,000 ML 125 ML IV (16:10)
--- OUTSIDE RECORDS SUMMARY | 2025-06-20 17:43 | XMS_ITS | CCD ---
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 Name Role Phone Marie Tejeda Primary Care Provider DELON CARRION Admitting Unavailable DELON CARRION Attending [...] Admit Provider DO Sushant Cordon Attending Provider [phone] MD Ashwini Conrad Other Provider MD Chuck Velasco Other Provider MD Anat Perez Other Provider MD Humberto Diaz Attending Provider MD Tru Yap Other Provider MD Fredi Medrano Admit Provider [phone] MD Fredi Medrano Attending Provider KARIN Rios [...] Other Provider DO Sushant Cordon Other Provider [phone] MD Audi Gaming Other Provider MD Cecily Keen Other Provider [phone] AMADA Wright Other Provider MD Daniel [...] Berman Other Provider AMADA Pimentel Other Provider [phone] MD Vidya Robert Other Provider MD Howard Burrell Other Provider DO Jeevan John Other Provider [phone] AMADA Murdock Other Provider DO Mauricio Drake [...] Provider MD Fredi Medrano Admit Provider [phone] MD Fredi Medrano Attending Provider KARIN Rios [...] Other Provider MD Howard Burrell Other Provider [phone] DO Jeevan John Other Provider AMADA Murdock Other Provider Vidal, Catherinedontae Other Provider KARIN Morillo Other Provider Unavailable MD Ashwini Conrad Attending Provider PROVIDER, UNKNOWN Attending Unavailable PROVIDER, UNKNOWN Admitting Unavailable MD Chuck Velasco Other Provider DO Federico Davis Attending Provider [phone] MD Herminio Lakhani Attending Provider Anat Perez Unavailable DO Marie Tejeda Primary Care Provider DO Federico Davis Attending Provider MD Herminio Lakhani Attending Provider [phone] MD [employer] Admit Provider MD Alberto Shearer Other Provider MD Beka Roland Other Provider MD Tru Yap Other Provider MD Vidya Robert Attending Provider MD [employer] Attending Provider MARYANN Flores Attending Provider DO Marie Tejeda Primary Care Provider GOVIND DAVIS Attending Unavailable MARIE TEJEDA Primary [...] Unavailable DO Marie Tejeda Primary Care Provider [phone] MD Alberto Shearer Attending Provider MD Paige Luther Emergency Provider [phone] DO Sushant Cordon Admit Provider DO Sushant Cordon Attending Provider MD Manuel Barraza Other Provider DO Warren Gross Attending Provider DO Marie Tejeda Primary Care Provider MD Anat Perez Attending Provider DO Warren Gross Other Provider MD Anat Perez Referring Provider MD Anat Perez Referring Provider [phone] Marie Tejeda DO Primary Care Provider [phone] Marie Tejeda DO Unavailable Chirag OGLESBY, Patrick Unavailable Mitchel OGLESBY, Andrey Caballero Unavailable Saúl Davis MD Unavailable MD Abdulaziz Root Attending Provider PATRICK BEARD Attending Unavailable MANUEL BARRZAA Referring Unavailable DO Marie Tejeda Primary Care Provider DO Warren Gross Attending Provider DO Marie Tejeda Primary Care Provider MD Anat Perez Attending Provider MD Anat Perez Referring Provider [phone] MD Abdulaziz Root Attending Provider Marie Tejeda DO Primary Care Provider Anat Perez MD Attending Provider [phone] Anat Perez MD Referring Provider Abdulaziz Root MD Attending Provider Ivett OGLESBY, Abdulaziz Admit Provider Marie Tejeda DO [place] Primary Care Provider Cally MOTOR ROOM CONTROLLER, Yuerong Unavailable Marie Tejeda DO Primary Care Provider Vargas Reis APRN Emergency Provider [phone] Jose Alfredo Brantley MD Admit Provider Jose Alfredo Brantley MD Attending Provider [phone] Gray Higgins MD Other Provider Sushant Cordon DO Admit Provider Sushant Cordon DO Attending Provider [phone] Stephanie Sheridan DO Other Provider Beto Russo MD Other Provider Thierno Corrales DO Other Provider Bertin Smith DO Emergency Provider Indra Burgess MD Admit Provider Indra Guillory MD Attending Provider Lisa Hidalgo MD Attending Provider Cally YBARRA.MOTOR ROOM CONTROLLER, Yuerong Unavailable Marie Tejeda DO Primary Care Provider Ileana CURTIS, Marie Primary Care Provider Bertin Smith DO Emergency Provider Queenie Guilolry MD, Indra Morrow Admit Provider Lisa Hidalgo MD Attending Provider Saúl Davis MD Unavailable [phone] Cally MED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.MOTOR ROOM CONTROLLER, Brandonng Unavailable Ileana CURTIS, Marie Primary Care Provider Ana OGLESBY, Anat Other Provider Abdulaziz Root [...] Attending Unavailable Jose Alfredo Brantley Admitting Unavailable Indar Guillory E Admitting Unavailab le Vaschak, [facility] Care Unavailable Lisa Hidalgo Attending Unavailable Chela [...] Referring Unavailable YOMI CHONG Attending Unavailable VASCHAK, [facility] Unavailab AYANA Dudley Referring Unavailable VASCHAK, [facility] Unavailab AYANA Dudley Attending Unavailable VASCHAK, [facility] Unavailab AYANA Dudley Referring Unavailable AYANA ZAVALA Attending Unavailable VASCHAK, [facility] Unavailab AYANA Dudley Attending Unavailable AYANA ZAVALA Referring Unavailable VASCHAK, [facility] Unavailab le CALLY, YUEROARSLAN Referring Unavailable AYANA ZAVALA Attending Unavailable VASCHAK, [facility] Unavailab le VASCHAK, [facility] Unavailab le VASCHAK, [facility] Unavailab le VASCHAK, [facility] Unavailab AYANA Dudley Attending Unavailable Chirag [facility], [facility] Unavailable Andrey Grullon MD Unavailable [phone] Saúl Davis MD Unavailable [phone] Almita Deras DO Unavailable Mely Rollins Attending Unavailable Tristan MELCHOR Attending Unavailable Tristan MELCHOR Attending Unavailable Tristan MELCHOR Referring Unavailable Tristan MELCHOR Attending Unavailable Tristan MELCHOR Attending Unavailable Mely Rollins Attending Unavailable Medications Current Medications MedicationDrug Class(es)DatesSig (Normalized)Sig (Original)[id number] 200 actuat albuterol 0.09 mg/actuat metered dose inhaler (17 sources)beta2-Adrenergic AgonistStart: 07-20-2024 End: 87-07-3932muzl 2 puff(s) by inhalation every four hours for wheezing albuterol HFA (ProAir HFA) 90 mcg/act inhaler Indications: Bronchitis Inhale 2 puffs every 4 (four)hours if needed for wheezing or shortness of breath 8.5 g 07/20/2024 07/20/2025 ActiveamLODIPine 5 mg oral tablet (2 sources)Dihydropyridine Calcium Channel BlockerStart: 24-23-5114cfqh 1 tablet by mouth once dailyamLODIPine (NORVASC) 5 MG tablet Take 1 tablet by mouth daily 30 tablet 3 01/07/2022 ActiveStart: 02-42-4732okkz 1 tablet by mouth once daily amLODIPine (NORVASC) 5 MG tablet Take 1 tablet by mouth daily 30 tablet 3 01/07/2022 ActiveStart: 81-98-5983dxoq 5 mg by mouth once daily5 mg, Oral, DAILY, First dose on 01/04/22 at 1500, Until Discontinuedamylase 864380 unt / lipase 03225 unt / protease 57239 unt delayed release oral capsule (20 sources)Start: 76-16-0118Lnrna 24,000 units oral delayed release capsule Refills(s) 0 Start Date: 04/25/25 Status: Ordered Medication Dispense Status: Completed Total Allowed Fills: 1 Fills Dispensed: 0Start: 04-09-2025 End: 65-05-3025modvmwxnrjnt, Ypl-Xksx-Culq, (Creon) 27439-36475 units capsule Indications: Pancreatic insufficiency (HCC) TAKE 2 CAPSULES BY MOUTH DAILY WITH MEALS AND 1 WITH 2 SNACKS DAILY DIRECTED 250 capsule 05/02/2025 ActiveStart: 02-77-1757sndalrtrezis, Iaa-Kkgq-Mmmu, (Creon) 50101-13744 units capsule Indications: Pancreatic insufficiency (HCC) TAKE 2 CAPSULES BY MOUTH DAILY WITH MEALS AND 1 WITH 2 SNACKS DAILY DIRECTED 250 capsule 03/05/2025 ActiveStart: 25-08-5905squkapqxsbte, Vfx-Yodp-Cvjp, (Creon) 24688-66166 units capsule Indications: Pancreatic insufficiency (HCC) TAKE 2 CAPSULES BY MOUTH DAILY WITH MEALS AND 1 CAPSULE BY MOUTH WITH SNACKS DIRECTED 240capsule 3 08/15/2024 ActiveStart: 10-27-4106gwxpipezqnso, Tyw-Leih-Tmek, (Creon) 07610-66271 units capsule Indications: Pancreatic insufficiency (CMS/HCC) TAKE 2 CAPSULES BY MOUTH DAILY WITH MEALS AND 1 CAPSULE BY MOUTH WITH SNACKS [id number] capsule 3 01/25/2024 ActiveStart: 25-08-3733qwpp 33364-75502 capsules by mouth once Gxjhme-Cgswregw-Yksdlud (Pork) (Creon) 24,000-76,000 -120,000 unit Capsule,Delayed Release(Dr/Ec) Active 2 CAP PO 3x/Day with meals 120 30 0 May 07, 2023 12:00am Complies with drug therapyStart: 05-02-2018 End: 56-26-7044sxms 1 capsule by mouth three times daily as needed for muscle bhrmooHhtptc-Yzsmydtd-Uupmtwl (Pork) (Creon) 24,000-76,000 -120,000 unit capsule,delayed release(DR/EC) Discontinued 1 CAP PO Three times daily as needed for gastrointestinal spasms or cramping February 05, 2024 12:00am August 31, 2024 11:08am administer one cap with zkvzvaauoipe-ehvebfym-edqrfba (CREON) 02020-83735 units delayed release capsule Take 12,000 Units by mouth take with snacks 0 Activeaspirin 81 mg oral capsule (20 sources)Platelet Aggregation Inhibitor, Nonsteroidal Anti-inflammatory Drug Start: 71-33-7812ggtp 1 mg by mouth every twenty-four hoursaspirin 81 mg oral capsule mg cap(s), Oral, q24hr, Refills(s) 0 Start Date: 04/25/25 Status: Ordered Medication Dispense Status: Completed Total Allowed Fills: 1 Fills Dispensed: 0Start: 05-03-2023 End: 22-41-8627hobc 1 tablet by mouth once dailyAspirin 81 mg Tablet,Delayed Release (Dr/Ec) Active 81 MG PO Daily 30 30 0 May 07, 2023 12:00am Complies with drug therapyatorvastatin 40 mg oral tablet (20 sources)HMG-CoA Reductase InhibitorStart: 41-18-6423seqsbckoqkvp 40 mg Tab Refills(s) 0 Start Date: 04/25/25 Status: Ordered Medication Dispense Status: Completed Total Allowed Fills: 1 Fills Dispensed: 0Start: 05-03-2023 End: 73-93-4576wanv 1 tablet by mouth once daily at bedtimeAtorvastatin 80 mg tablet Discontinued 80 MG PO Daily at bedtime 90 90 1 October 28, 2023 12:00am February 28, 2024 8:12am End: 49-53-0408dsjupodzgrvw (Lipitor) 80 MG tablet Take 40 mg by mouth Daily 05/02/2025 Discontinued (Reorder)Blood Sugar Diagnostic (20 sources)Start: 38-97-8041Gzdvl Sugar Diagnostic Active STRIP 120 September 05, 2023 12:00am Fingerstick blood sugar ACHSStart: 57-34-2868Vucsa Sugar Diagnostic Active STRIP 120 September 05, 2023 1:00am Fingerstick blood sugar ACHSBlood-Glucose Sensor (DEXCOM G7 SENSOR) delfin (8 sources)Start: 24-90-1108Zahca-Glucose Sensor (DEXCOM G7 SENSOR) delfin Indications: 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 3 each 12/25/2024 01/01/2025 DiscontinuedStart: 39-23-2422Jdkmu-Glucose Sensor (DEXCOM G7 SENSOR) delfin Indications: Type [...] oral capsule (20 sources)Cephalosporin AntibacterialStart: 05-17-2025 End: 14-60-6940zwru 1 capsule by mouth every twelve hoursKeflex 500 mg Cap 500 mg = 1 cap(s), Oral, q12hr, X 5 day(s), # 10 cap(s), Refills(s) 0, Pharmacy: [facility]/pharmacy #[id number], 177, cm, 05/17/25 10:58:00 EST, Height/Length Dosing, 61.7, kg, 05/17/25 10:58:00 EST, Weight Dosing Start Date: 05/17/25 Stop Date: 05/22/25 Status: Ordered Medication Dispense Status: Completed Quantity: 10.0 Unit: cap(s) Total Allowed Fills: 1 Fills Dispensed: 0Start: 85-08-1872uzke 1 capsule by mouth once dailyKeflex 500 mg Cap 500 mg = 1 cap(s), Oral, Daily, Take 1 cap day prior to procedure and 1 cap day of procedure, # 2 cap(s), Refills(s) 0, Pharmacy: [facility]/pharmacy #[id number], 177, cm, 04/25/25 14:48:00 EDT,Height/Length Dosing, 61.5, kg, 04/25/25 14:48:00 EDT, Weight Dosing Start Date: 04/26/25 Status: Ordered Medication Dispense Status: Completed Quantity: 2.0 Unit: cap(s) Total Allowed Fills: 1 FillsDispensed: 0Start: 06-21-2024 End: 59-94-5334xvur 1 capsule by mouth three times dailyCephalexin 500 mg capsule Discontinued 500 MG PO Three times daily 21 June 21, 2024 11:28am July 16, 2024 8:10pmStart: 06-18-2024 End: 28-26-0573sxil 1 capsule by mouth twice dailyCephalexin 500 mg capsule Discontinued 500 MG PO Twice daily 14 7 0 June 18, 2024 1:00am June 21, 2024 11:28amcetirizine hydrochloride 10 mg oral tablet (20 sources)Histamine-1 Receptor Antagonist End: 10-59-8969uzbu 1 tablet by mouth once dailycetirizine (ZYRTEC) 10 mg tablet Take 10 mg by mouth once daily. Activecholecalciferol 0.05 mg oral tablet (20 sources)Vitamin DStart: 10-26-2023 End: 00-07-4393jual 1 tablet by mouth once dailycholecalciferol (Vitamin D-3) 50 MCG (2000 UT) tablet Take 2,000 Units by mouth Daily 10/26/2023 ActiveStart: 78-62-0033ubmn 100 ug by mouth once dailyCholecalciferol (Vitamin D3) 125 mcg/0.5 mL (5K unit/0.5mL) drops Active 100 MCG PO Daily October 26, 2023 12:00am Complies with drug therapyStart: 32-79-2744mwus 100 ug by mouth once dailyCholecalciferol (Vitamin D3) Active 100 MCG PO Daily October 25, 2023 11:00pmStart: 70-23-4716qmpq 100 ug by mouth once dailyCholecalciferol (Vitamin D3) Active 100 MCG PO Daily October 26, 2023 12:00amStart: 08-31-2023 End: 98-38-8791wvtj 1 tablet by mouth once dailyCholecalciferol (Vitamin D3) (Vitamin D3) 50 mcg (2,000 unit) tablet Discontinued 50 MCG PO Daily August 31, 2023 1:00am October 28, 2023 2:44pm End: 52-63-1663esyo 1 capsule by mouth in the morningcholecalciferol (Vitamin D- 3) 25 MCG (1000 UT) capsule Take 25 mcg by mouth in the morning. 07/20/2024 Discontinued (Therapy completed)Cholecalciferol (Vitamin D3) 125 mcg/0.5 mL (5K unit/0.5mL) drops (7 sources)Start: 36-74-1986ucdn 100 ug by mouth once dailyCholecalciferol (Vitamin D3) 125 mcg/0.5 mL (5K unit/0.5mL) drops Active 100 MCG PO Daily October 26, 2023 12:00amStart: 31-68-6136zgsj 100 ug by mouth once daily Cholecalciferol (Vitamin D3) 125 mcg/0.5 mL (5K unit/0.5mL) drops Active 100 MCG PO Daily October 25, 2023 11:00pmCreon 6000 UNIT (4 sources)Creon 6000 UNIT as directed Orally Activedocusate sodium 50 mg / sennosides, group home 8.6 mg oral tablet (2 sources)take 1 tablet by mouth once dailysenna-docusate sodium (Senokot-S) 8.6-50 MG tablet Take 1 tablet by mouth Daily Activedoxycycline hyclate 100 mg oral capsule (2 sources)Tetracycline-class DrugStart: 08-30-2024 End: 75-99-5924eeuswjzmuar (Vibramycin) 100 MG capsule Indications: Lower respiratory [...] glucagon 5 mg/ml auto-injector (20 sources)Antihypoglycemic AgentStart: 59-22-3937ocvnjiwj (GVOKE HYPOPEN 2- PACK) 1 mg/0.2 mL auto-injector Inject 1 mg subcutaneously as needed. 0.4mL 3 07/06/2024 ActiveStart: 13-90-3240kabtyhwf (rDNA) injection 1 mginject 1 mg by subcutaneous injection onceGvoke HypoPen 1-Pack 1 MG/0.2ML injection Inject 1 mg under the skin 1 (one) time if needed Qppulv802 ml glucose 50 mg/ml injection (3 sources)Start: 56-40-2861kxczfenz bolus 10% 125 mLStart: 01-02-2022 End: 08-98-1389clhbwxdc 5 % solution1 ml hydrALAZINE hydrochloride 20 mg/ml injection (1 source)Arteriolar VasodilatorStart: 69-18-6688alqtXUHOWQI (APRESOLINE) injection 10 mg24 hr hydroCHLOROthiazide 12.5 mg / metoprolol succinate 25 mg extended release oral tablet (2 sources)Thiazide Diuretic, beta-Adrenergic BlockerStart: 04-25-2025 hydrochlorothiazide-metoprolol 12.5 mg-25 mg oral tablet, extended release Refill(s) 0 Start Date: 04/25/25 Status: Ordered Medication Dispense Status: Completed Total Allowed Fills: 1 Fills Dispensed: 0Insulin Aspart U-100 (Novolog Flexpen U-100 Insulin) 100 unit/mL (3 mL) Insulin Pen (20 sources)Start: 37-49-6542Namqckc Aspart U-100 (Novolog Flexpen U-100 Insulin) 100 unit/mL (3 mL) Insulin Pen Active 0 UNIT SUBCUT 3X/Day with meals and bedtime 0 September 03, 2023 1:00am Please contact the information source for Protocol details.Start: 09-03-2023 End: 43-74-0312Ylazxsc Aspart U-100 (Novolog Flexpen U-100 Insulin) 100 unit/mL (3 mL) Insulin Pen Discontinued 0 UNIT SUBCUT 3x/Day with meals 0 September 03, 2023 1:00am October 28, 2023 2:44pm On Hold: medication in twice Please contact the information source for Protocol details.Start: 73-89-0057Ubctggk Aspart U- 100 (Novolog Flexpen U-100 Insulin) 100 unit/mL (3 mL) Insulin Pen Active 0 UNIT SUBCUT 3X/Day with meals and bedtime 0 September 03, 2023 12:00am Please contact the information source for Protocol details.Start: 09-03-2023 End: 87-32-8310Ryzqzrf Aspart U-100 (Novolog Flexpen U-100 Insulin) 100 unit/mL (3 mL) Insulin Pen Discontinued 0 UNIT SUBCUT 3x/Day with meals 0 September 03, 2023 12:00am October 28, 2023 1:44pm On Hold: medication in twice Please contact the information source for Protocol details.Start: 13-12-5807Zuanazl Aspart U- 100 (Novolog Flexpen U-100 Insulin) 100 unit/mL (3 mL) Insulin Pen Active 0 UNIT SUBCUT 3X/Day with meals and bedtime 0 September 03, 2023 12:00amStart: 09-03-2023 End: 49-99-4500Hwejaiz Aspart U-100 (Novolog Flexpen U-100 Insulin) 100 unit/mL (3 mL) Insulin Pen Discontinued 0 UNIT SUBCUT 3x/Day with meals 0 September 03, 2023 12:00am October 28, 2023 1:44pmStart: 09-03-2023 End: 24-93-4136Ldwonfx Aspart U-100 (Novolog Flexpen U-100 Insulin) 100 unit/mL (3 mL) Insulin Pen Discontinued 0 UNIT SUBCUT 3x/Day with meals 0 September 03, 2023 1:00am October 28, 2023 2:44pmStart: 39-58-4717Ejjrchw Aspart U-100 (Novolog Flexpen U-100 Insulin) 100 unit/mL (3 mL) Insulin Pen Active 0 UNIT MUNOZ BCUT 3x/Day with meals 0 September 03, 2023 1:00amStart: 36-40-6021Nygcfxd Aspart U-100 (Novolog Flexpen U-100 Insulin) 100 unit/mL (3 mL) Insulin Pen Active 0 UNIT SUBCUT 3X/Day with meals and bedtime 0 September 03, 2023 1:00am Start: 05-07-2023 End: 50-17-4063Rzheswa Aspart U-100 (Novolog Flexpen U-100 Insulin) 100 unit/mL (3 mL) Insulin Pen Discontinued 0 UNITS SUBCUT 3x/Day with meals 0 May 07, 2023 12:00am September 05, 2023 3:28pm Please contact the information source for Protocol details.Start: 05-07-2023 End: 25-15-1684Ksbgrvy Aspart U-100 (Novolog Flexpen U-100 Insulin) 100 unit/mL (3 mL) Insulin Pen Discontinued 0 UNITS SUBCUT 3x/Day with meals 0 May 06, 2023 11:00pm September 05, 2023 2:28pm Please contact the information source for Protocol details.Start: 05-07-2023 End: 38-91-9632fwzrwi 1 dose by subcutaneous injection at bedtimeInsulin Aspart U-100 (Novolog Flexpen U-100 Insulin) 100 unit/mL (3 mL) Insulin Pen Discontinued 1 sliding scale dose SUBCUT Before meals and at bedtime May 06, 2023 11:00pm September 05, 2023 2:28pmStart: 05-07-2023 End: 42-21-8984Yztzbmw Aspart U-100 (Novolog Flexpen U-100 Insulin) 100 unit/mL (3 mL) Insulin Pen Discontinued 0 UNITS SUBCUT 3x/Day with meals May 06, 2023 11:00pm September 05, 2023 2:28pmStart: 05-07-2023 End: 60-11-5105orwycp 1 dose by subcutaneous injection at bedtimeInsulin Aspart U-100 (Novolog Flexpen U-100 Insulin) 100 unit/mL (3 mL) Insulin Pen Discontinued 1 sliding scale dose SUBCUT Before meals and at bedtime May 07, 2023 12:00am September 05, 2023 3:28pmStart: 05-07-2023 End: 85-85-3635Vvxamev Aspart U-100 (Novolog Flexpen U-100 Insulin) 100 unit/mL (3 mL) Insulin Pen Discontinued 0 UNITS SUBCUT 3x/Day with meals May 07, 2023 12:00am September 05, 2023 3:28pmStart: 88-32-8227uumgpl 1 dose by subcutaneous injection at bedtimeInsulin Aspart U-100 (Novolog Flexpen U-100 Insulin) 100 unit/mL (3 mL) Insulin Pen Active 1 sliding scale dose SUBCUT Before meals and at bedtime May 06, 2023 11:00pmStart: 05-07-2023 Insulin Aspart U-100 (Novolog Flexpen U-100 Insulin) 100 unit/mL (3 mL) Insulin Pen Active 0 UNITS SUBCUT 3x/Day with meals May 06, 2023 11:00pmStart: 10-18-5976soqrnj 1 dose by subcutaneous injection at bedtimeInsulin Aspart U-100 (Novolog Flexpen U-100 Insulin) 100 unit/mL (3 mL) Insulin Pen Active 1 sliding scale dose SUBCUT Before meals and at bedtime May 07, 2023 12:00am Start: 64-32-5220Yygfvxo Aspart U-100 (Novolog Flexpen U-100 Insulin) 100 unit/mL (3 mL) Insulin Pen Active 0 UNITS SUBCUT 3x/Day with meals May 07, 2023 12:00amStart: 05-03-2023 End: 34-62-4197Fhzyylc Aspart U-100 (Novolog Flexpen U-100 Insulin) 100 unit/mL (3 mL) Insulin Pen Discontinued 0 UNITS SUBCUT 3x/Day with meals May 03, 2023 12:00am May 03, 2023 5:09pm Please contactthe information source for Protocol details.Start: 05-03-2023 End: 67-77-1040Dgrbvpf Aspart U-100 (Novolog Flexpen U-100 Insulin) 100 unit/mL (3 mL) Insulin Pen Discontinued 0 UNITS SUBCUT 3x/Day with meals 0 May 02, 2023 11:00pm May 03, 2023 4:09pm Please contactthe information source for Protocol details.Start: 05-03-2023 End: 81-39-5228Iaqxhbu Aspart U-100 (Novolog Flexpen U-100 Insulin) 100 unit/mL (3 mL) Insulin Pen Discontinued 0 UNITS SUBCUT 3X/Day with meals and bedtime 0 May 02, 2023 11:00pm May 03, 2023 4:10pmStart: 05-03-2023 End: 50-26-1606Lipijkf Aspart U-100 (Novolog Flexpen U-100 Insulin) 100 unit/mL (3 mL) Insulin Pen Discontinued 0 UNITS SUBCUT 3x/Day with meals 0 May 02, 2023 11:00pm May 03, 2023 4:09pmStart: 05-03-2023 End: 88-35-5140Dkkbzht Aspart U-100 (Novolog Flexpen U-100 Insulin) 100 unit/mL (3 mL) Insulin Pen Discontinued 0 UNITS SUBCUT 3X/Day with meals and bedtime 0 May 03, 2023 12:00am May 03, 2023 5:10pmStart: 05-03-2023 End: 01-29-3201Lndfzid Aspart U-100 (Novolog Flexpen U-100 Insulin) 100 unit/mL (3 mL) Insulin Pen Discontinued 0 UNITS SUBCUT 3x/Day with meals 0 May 03, 2023 12:00am May 03, 2023 5:09pmStart: 58-56-6757Wfwnwna Aspart U-100 (Novolog Flexpen U-100 Insulin) 100 unit/mL (3 mL) Insulin Pen Active 0 UNITS S UBCUT 3X/Day with meals and bedtime 0 May 03, 2023 12:00amStart: 80-55-5302Jpeddfr Aspart U-100 (Novolog Flexpen U-100 Insulin) 100 unit/mL (3 mL) Insulin Pen Active 0 UNITS SUBCUT 3x/Day with meals 0 May 03, 2023 12:00aminsulin aspart, human 100 unt/ml injectable solution (20 sources)Insulin AnalogStart: 04-40-3968Mfuilwy Aspart 100 UNIT/ML solution 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 Inject before meals. Use a directed by spikemaking supervisor. 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 Complies with drug therapyStart: 08-31-2023 End: 40-83-5241Oiueekk Aspart U-100 (Novolog U-100 Insulin Aspart) 100 unit/mL solution Discontinued 50 UNIT CNTSUBQINF Daily August 31, 2023 1:00am September 05, 2023 3:28pm per insulin pumpStart: 08-18-2023 End: 77-42-9757ElntDXI FLEXPEN 100 UNIT/ML pen 08/18/2023 07/20/2024 Discontinued (Therapy completed)Start: 05-07-2023 End: 46-27-7295Slqdcnb Aspart U-100 (Novolog Flexpen U-100 Insulin) 100 unit/mL (3 mL) Insulin Pen Discontinued 0 UNIT SUBCUT 3x/Day with meals Protocol: *Carb coverage 1:10*Give 1 unit of rapid-acting insulin for every 10 gm of carbohydrates eaten at meals 0 0 September 03, 2023 1:00am October 28, 2023 2:44pm On Hold: medication in twice Please contact the information source for Protocol details.Start: 05-03-2023 End: 43-49-4141Karvhey Aspart U-100 (Novolog Flexpen U-100 Insulin) 100 [...] information source for Protocol details.Start: 04-28-2023 End: 74-55-1841Qrrppgo Aspart U-100 (Novolog Flexpen U-100 Insulin) 100 unit/mL (3 mL) Insulin Pen Discontinued 0 UNITS SUBCUT 3x/Day with meals Protocol: *CARB COVERAGE 1:10*GIVE 1 UNIT OF ASPART FOR EVERY 10 GM CHO EATEN AT MEALS 0 0 May 03, 2023 12:00am May 03, 2023 5:09pm Please contact the [facility] [employer] source for Protocol details.Start: 04-28-2023 End: 55-24-3162tbsfpl 5 [IU] by subcutaneous injection after breakfastInsulin [...] 100 unt/ml pen injector (20 sources)Insulin AnalogStart: 80-52-9053dluvxb 1 [IU] by subcutaneous injection at bedtimeinsulin glargine (Basaglar KwikPen) 100 UNIT/ML pen 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) Inject 12 Units under the skin at bedtime 10 mL 06/02/2024 07/20/2024 Discontinued (Therapy completed)Start: 05-30-2024 End: 38-49-7202eitoxy 16 [IU] by subcutaneous injection at bedtimeinsulin glargine (Lantus) 100 UNIT/ML injection Indications: 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) Inject 16 Units under the skin at bedtime 10 mL 05/30/2024 08/28/2024 ActiveStart: 09-03-2023 End: 47-44-5918Bztxhns Glargine (Lantus Solostar U-100 Insulin) 100 unit/mL (3 mL) Insulin Pen Discontinued 24 UNIT SUBCUT Daily 0 0 September 03, 2023 1:00am October 28, 2023 2:43pm On Hold: medication in twiceStart: 08-31-2023 End: 56-30-8894Keystmw Glargine (Lantus Solostar U-100 Insulin) 100 unit/mL (3 mL) Insulin Pen Discontinued 16 UNIT SUBCUT Bedtime August 31, 2023 1:00am July 16, 2024 8:12pmStart: 80-54-8505fbrlye 8 [IU] by subcutaneous injection at bedtimeInsulin Glargine (Lantus Solostar U-100 Insulin) 100 unit/mL (3 mL) Insulin Pen Active 8 UNIT SUBCUT Bedtime August 31, 2023 1:00amStart: 08-30-2023 End: 38-29-6801xhcnpj 8 [IU] by subcutaneous injection at bedtimeinsulin glargine (Lantus) 100 UNIT/ML injection Indications: 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 (CMS/HCC) Inject 8 Units under the skin at bedtime 08/30/2023 05/30/2024 Discontinued (Reorder)Start: 08-20-2023 End: 34-94-3746Tjtisw SoloStar 100 UNIT/ML pen Inject 18 Units under the skin at bedtime 08/20/2023 07/20/2024 Discontinued (Therapy completed)Start: 05-03-2023 End: 16-75-3345tewzdd 7 [IU] by subcutaneous injection twice dailyInsulin Glargine (Lantus Solostar U-100 Insulin) 100 unit/mL (3 mL) Insulin Pen Discontinued 7 UNITS SUBCUT Twice daily 4.2 30 0 May 07, 2023 12:00am August 31, 2023 4:55pmStart: 04-28-2023 End: 16-63-8027Ugaxgzl Glargine (Lantus Solostar U-100 Insulin) 100 unit/mL (3 mL) insulin pen Discontinued 18 UNIT SUBCUT Bedtime April 28, 2023 12:00am May 03, 2023 5:10pm End: 18-25-1146lcpauf 100 [IU] by subcutaneous injection at bedtimeinsulin [...] - Basal Dose (Patient Supplied) (1 source)Start: 17-94-4319Wviqgrn Pump - Basal Dose (Patient Supplied)Insulin Pump - Bolus Dose (Patient Supplied) (1 source)Start: 77-87-4459Gaknbtc Pump - Bolus Dose (Patient Supplied)insulin pump cart,auto,BT,G6/7 (OMNIPOD 5 G6-G7 PODS, GEN 5,) crtg (20 sources)Start: 36-51-7684lbdgual pump cart,auto,BT,G6/7 (OMNIPOD 5 G6-G7 PODS, GEN 5,) crtg Indications: 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 10 Each 07/06/2024 ActiveLactobac no.41/Bifidobact no.7 (PROBIOTIC-10 ORAL) (20 sources)Lactobac no.41/Bifidobact no.7 (PROBIOTIC-10 ORAL) Take by mouth once daily. ActiveLactobacillus Combination No.4 (Probiotic) 3 billion cell capsule (6 sources)Start: 88-57-8540jznj 3 capsules by mouth once dailyLactobacillus Combination No.4 (Probiotic) 3 billion cell capsule Active 3000 MMU CELLS PO Daily August 31, 2024 1:00am administer with a meal Complies with drug therapyStart: 68-46-5927ktge 3 capsules by mouth once dailyStart: 89-72-9027vqyn 3 capsules by mouth once dailyLactobacillus Combination No.4 (Probiotic) 3 billion cell capsule Active 3000 MMU CELLS PO Daily August 31, 2024 1:00am administer with a mealStart: 66-57-3513acyo 3 capsules by mouth once daily Lactobacillus Combination No.4 (Probiotic) 3 billion cell capsule Active 3000 MMU CELLS PO Daily August 31, 2024 12:00am administer with a meal lipase/protease/amylase (CREON ORAL) (2 sources)take 61713 mg by mouth three times dailylipase/protease/amylase (CREON ORAL) Take 24,000 mg by mouth 3 times a day. 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) Take 1 tablet (25 mg) by mouth Daily 05/02/2025 Activelutein 6 mg oral capsule (20 sources)Start: 10-26-2023 End: 35-37-6172jgkv 1 capsule by mouth once dailyLutein 6 [...] melatonin 1 mg oral tablet (1 source)Start: 76-41-6621ndunqnjum tablet 3 mg24 hr metoprolol succinate 50 mg extended release oral tablet (20 sources)beta-Adrenergic BlockerStart: 05-02-2025 End: 83-20-0816qtoq 0.5 tablet by mouth every twenty-four hours in the morning metoprolol succinate XL (Toprol-XL) 50 MG 24 hr tablet Indications: Hypertensive heart disease withchronic systolic congestive heart failure (HCC) Take 0.5 tablets (25 mg) by mouth in the morning and 0.5 tablets (25 mg) before bedtime. Do not crush or chew. 05/02/2025 ActiveStart: 19-35-4885cwud 2 tablets by mouth once daily at bedtimeMetoprolol Succinate 25 mg tablet extended release 24 hr Active 12.5 MG PO Daily at bedtime 45 90 0Sept2024 12:00am Complies with drug therapyStart: 07-16-2024 End: 85-41-7883kkag 2 tablets by mouth twice dailyMetoprolol Succinate 25 mg tablet extended release 24 hr Discontinued 12.5 MG PO Twice daily 90 90 2 December 05, 2024 9:38am March 27, 2025 10:50amStart: 94-09-4451seky 0.5 tablet by mouth every twelve hoursmetoprolol succinate ER (TOPROL XL) 50 mg 24 hr tablet Take 0.5 tablets by mouth every 12 hours. 06/21/2024 ActiveStart: 05-25-2024 End: 29-73-8133oblg 1 tablet by mouth twice dailyMetoprolol Succinate 50 mg Tablet Extended Release 24 Hr Discontinued 50 MG PO Twice daily 60 30 3 May 25, 2024 1:00am July 16, 2024 8:14pmStart: 05-16-2024 End: 17-66-9402stlo 2 tablets by mouth twice dailyMetoprolol Succinate 25 mg tablet extended release 24 hr Discontinued 12.5 MG PO Twice daily May 16, 2024 1:00am May 25, 2024 10:49amStart: 42-47-2019hybn 12.5 mg by mouth twice dailyMetoprolol Succinate Active 12.5 MG PO Twice daily May 16, 2024 12:00amStart: 04-24-2024 End: 05-85-9290pkjm 0.5 tablet by mouth every twenty-four hours in the morning metoprolol succinate XL (Toprol-XL) 25 MG 24 hr tablet Indications: Coronary arteriosclerosis (CMS/HCC) Take 0.5 tablets (12.5 mg) by mouth in the morning and 0.5 tablets (12.5 mg) before bedtime. 180 tablet 3 04/24/2024 05/30/2024 Discontinued (Therapy completed)Start: 02-15-2024 End: 84-05-3582ilue 2 tablets by mouth once dailyMetoprolol Succinate 25 mg tablet extended release 24 hr Discontinued 12.5 MG PO Daily 45 90 1 February 15, 2024 12:00am May 16, 2024 1:54pmStart: 02-15-2024 End: 36-36-0715bcrl 12.5 mg by mouth once dailyMetoprolol Succinate Discontinued 12.5 MG PO Daily 45 90 February 14, 2024 11:00pm May 16, 2024 12:54pm Start: 02-05-2024 End: 38-22-6764ajaj 2 tablets by mouth twice dailyMetoprolol Succinate (Toprol Xl) 25 mg tablet extended release 24 hr Discontinued 12.5 MG PO Twice daily February 05, 2024 12:00am February 15, 2024 10:58am End: 47-47-7569esyg 1 tablet by mouth every twenty-four hours in the morning metoprolol succinate XL (Toprol-XL) 25 MG 24 hr tablet Take 12.5 mg by mouth in the morning and 12.5 mg before bedtime. Do not crush or chew.. 01/02/2025 Discontinued (Dose adjustment)Multi Vitamins oral tablet (2 sources)Start: 28-19-2427dorh 1 tablet by mouth once dailyMulti Vitamins oral tablet Oral, Daily, Refill(s) 0 Start Date: 04/25/25 Status: Ordered Medication Dispense Status: Completed Total Allowed Fills: 1 Fills Dispensed: 0Start: 54-17-1308zlny 1 tablet by mouth once dailyMulti Vitamins oral tablet Oral, Daily, Refill(s) 0 Start Date: 04/25/25 Status: Ordered Repeat number: 1Multiple Vitamins-Minerals (LUTEIN-ZEAXANTHIN PO) (1 source)take 1 tablet by mouth once dailyMultiple Vitamins-Minerals (LUTEIN- ZEAXANTHIN PO) Take 1 tablet by mouth daily 0 ActiveMultivit With Min-Folic Acid (Centrum Adults) 12 mcg tablet,chewable (20 sources)Start: 08-44-3649pkcw 1 tablet by mouth once dailyMultivit With Min- Folic Acid (Centrum Adults) 12 mcg tablet,chewable Active 1 TAB PO Daily October 26, 2023 12:00am Complies with drug therapyStart: 43-53-7136haas 1 tablet by mouth once dailyStart: 92-05-0671cuiq 1 tablet by mouth once dailyMultivit With Min-Folic Acid (Centrum Adults) 12 mcg tablet,chewable Active 1 TAB PO Daily October 25, 2023 11:00pmStart: 12-87-2943uxgc 1 tablet by mouth once daily Multivit With Min-Folic Acid (Centrum Adults) 12 mcg tablet,chewable Active 1 TAB PO Daily October 26, 2023 12:00ammultivit-min/ferrous fumarate (MULTI VITAMIN ORAL) (1 source)take 1 tablet by mouth once dailymultivit-min/ferrous fumarate (MULTI VITAMIN ORAL) Take 1 tablet by mouth once daily. 0 Activeondansetron (ZOFRAN- ODT) disintegrating tablet 4 mg (1 source)Start: 84-71-1641nritmxdvtja (ZOFRAN-ODT) disintegrating tablet 4 mg pantoprazole (PROTONIX) 40 mg in sodium chloride (PF) 10 mL injection (1 source)Start: 22-59-429558 mg, IntraVENous, EVERY 12 HOURS, First dose on Wed01/02/22 at 2300 Reconstitute with 10 mL 0.9 %sodium chloride and administer over at least 2 minutes.PARoxetine hydrochloride 40 mg oral tablet (20 sources)Serotonin Reuptake InhibitorStart: 08-11-2024 End: 18-27-2890hwwswsziuc 40 mg Tab Refills(s) 0 Start Date: 04/25/25 Status: Ordered Medication Dispense Status: Completed Total Allowed Fills: 1 Fills Dispensed: 0Start: 02-15-2024 End: 67-80-6304boal 1 tablet by mouth once daily in the morningPARoxetine (Paxil) 40 MG tablet Indications: Generalized anxiety disorder TAKE 1 TABLET BY MOUTH EVERY DAY IN THE MORNING 90 tablet 3 08/11/2024 ActiveStart: 04-28-2023 End: 84-75-7668lbbn 1 tablet by mouth once dailyParoxetine Hcl 30 mg Tablet Discontinued 30 MG PO Daily 30 30 0 May 07, 2023 12:00am February 15, 2024 10:09amStart: 98-78-8487fgbg 30 mg by mouth once daily in the cpyfucu97 mg, Oral, EVERY MORNING, First dose on Wed01/05/22 at 0900, Until Discontinued Probiotic Product (PROBIOTIC-10 PO) (1 source)take 1 capsule by mouth once dailyProbiotic Product (PROBIOTIC-10 PO) Take 1 capsule by mouth daily 0 Znazdd3462 ml sodium chloride 9 mg/ml injection (4 [...] or less into rate field of order.Start: 89-49-4890seqq 1 dose intravenously twice daily5-40 mL, IntraVENous, [...] Midline or Central Line = 20 mL/lumenStart: 38-61-4420iqlb 5-40 mL intravenously once as needed5-40 mL, [...] oral tablet (20 sources)Aldosterone AntagonistStart: 10-13-2024 End: 40-45-8213inzd 1 tablet by mouth once dailyspironolactone (Aldactone) 25 MG tablet Indications: Chronic systolic CHF (congestive heart failure), NYHA class 2 (HCC) Take 1 tablet (25 mg) by mouth Daily 90 tablet 3 01/17/2025 Active Start: 08-31-2024 End: 54-97-1554Whouslpqveqojt 25 mg tablet Discontinued 12.5 MG PO Daily 15 30 2 August 31, 2024 1:00am October 13, 2024 9:58amStart: 07-16-2024 End: 81-11-7893gkzv 1 tablet by mouth once dailySpironolactone 25 mg tablet Discontinued 25 MG PO Daily July 16, 2024 1:00am August 31, 2024 11:09am Start: 03-27-2024 End: 82-24-9443Qxxxrxmtdhtkjm 25 mg tablet Discontinued 12.5 MG PO Every morning May 16, 2024 1:00am June 16, 2024 7:21pmStart: 03-27-2024 End: 73-36-0479cyjv 12.5 mg by mouth once daily in the morningSpironolactone Active 12.5 MG PO Every morning May 16, 2024 12:00amStart: 02-05-2024 End: 38-94-3374ubhj 1 tablet by mouth once dailySpironolactone 25 mg Tablet Discontinued 25 MG PO Daily 90 90 0 February 08, 2024 12:00am March 27, 2024 11:44amtamsulosin hydrochloride 0.4 mg oral capsule (20 sources)alpha-Adrenergic BlockerStart: 69-04-4604aexw 1 capsule by mouth once dailyTamsulosin (Flomax) 0.4 mg capsule Active 0.4 MG PO Daily May 09, 2025 12:00am Complies with drug therapyStart: 72-27-0081atay 1 capsule by mouth every twenty-four hours at bedtimetamsulosin (Flomax) 0.4 MG 24 hr capsule Take 1 capsule by mouth at bedtime 05/16/2024 ActiveStart: 04-28-2023 End: 56-61-5106hcsx 1 capsule by mouth once dailyTamsulosin 0.4 mg Capsule Discontinued 0.4 MG PO Daily 30 30 0 May 07, 2023 12:00am May 16, 2024 1:54pmVitamin D (2 sources)Start: 52-08-9974tjlx 1 dose by mouth every weekVitamin D International_Unit, Oral, qWeek, Refills(s) 0 Start Date: 04/25/25 Status: Ordered Medication Dispense Status: Completed Total Allowed Fills: 1 Fills Dispensed: 0Start: 73-85-2565Nvmrlae D International_Unit, Oral, qWeek, Refills(s) 0 Start Date: 04/25/25 Status: Ordered Repeatnumber: 1Vitamin D3 [id number] UNIT/GM (4 sources)Vitamin D3 [id number] UNIT/GM as directed Active Completed/Discontinued Medications MedicationDrug Class(es)DatesSig (Normalized)Sig (Original)acetaminophen 500 mg oral tablet (20 sources)Start: 05-03-2023 End: 78-04-1134hidc 1 tablet by mouth every six hoursAcetaminophen 500 mg Tablet Discontinued 500 MG PO Every 6 hours 90 0 May 07, 2023 12:00am August 31, 2023 3:53pmStart: 05-03-2023 End: 76-43-3720wgvd 1-3 tablets by mouth every four hours as needed for pain Acetaminophen (Tylenol) 325 mg Tablet Discontinued 650 MG PO Q4H as needed for Pain Scale 1 - 3 or fever 0 0 May 03, 2023 12:00am May 03, 2023 5:10pmStart: 05-03-2023 End: 57-23-2317fosj 2 tablets by mouth every four hoursAcetaminophen (Tylenol) 325 mg Tablet Discontinued 650 MG PO Q4H 0 May 02, 2023 11:00pm May 03, 2023 4:10pmStart: 48-67-8044kssejdqjkmzwn (TYLENOL) tablet 1,000 mg Acetaminophen Extra Strength 500 MG tablet Daily. Activeacetaminophen 325 mg / HYDROcodone bitartrate 5 mg oral tablet (20 sources)Opioid AgonistStart: 05-03-2023 End: 68-21-8838zqox 1 tablet by mouth every four hours [...] 4-6 hrs for 7 days ROSEANN # [id number] Activetake 1 tablet by mouth every six hoursHYDROcodone-Acetaminophen 5-325 MG 1 tablet as needed Orally every 6 hrs Activealuminum hydroxide 40 mg/ml / magnesium hydroxide 40 mg/ml / simethicone 4 mg/ml oral suspension (20 sources)Start: 05-03-2023 End: 58-27-0421uigg 1 mL by mouth every four hours as neededAlum-Mag Hydroxide- Simeth (Mag-Al Plus) 200-200-20 mg/5 mL Suspension Discontinued 30 ML PO Q4H as needed for Epigastric distress (Non-Card) 0 0 May 03, 2023 12:00am May 03, 2023 5:10pmamoxicillin 875 mg / clavulanate 125 mg oral tablet (2 sources)Penicillin-class AntibacterialStart: 04-17-2024 End: 01-07-0883xxtc 1 tablet by mouth in the morningamoxicillin-clavulanate (Augmentin) 875-125 MG tablet Indications: Bronchitis Take 1 tablet (875 mg) by mouth in the morning and 1 tablet (875 mg) before bedtime. Do all this for 5 days. 14 tablet 04/17/2024 04/22/2024 Expiredascorbic acid 500 mg oral tablet (20 sources)Vitamin CStart: 05-03-2023 End: 18-63-6016xroe 1 tablet by mouth once dailyAscorbic Acid (Vitamin C) (Vitamin C) 500 mg Tablet Discontinued 500 MG PO Daily 30 0 April 12:00am September 05, 2023 3:28pm End: 46-08-6024yuvn 1 tablet by mouth once dailyascorbic acid (Vitamin C) 100 mg tablet Take 1 tablet (100 mg) by mouth once daily. 0 08/16/2023 Discontinued (Therapy completed)bisacodyl 10 mg rectal suppository (20 sources)Stimulant LaxativeStart: 05-03-2023 End: 70-81-6866Dkcfduwro 10 mg Suppository Discontinued 10 MG IA Daily as needed for Constipation 0 0 May 03, 2023 12:00am May 03, 2023 5:10pmStart: 05-03-2023 End: 92-22-2283shuf 2 tablets by mouth once daily as needed for constipation Bisacodyl 5 mg Tablet,Delayed Release (Dr/Ec) Discontinued 10 MG PO Daily as needed for Constipation 0 0 May 03, 2023 12:00am May 03, 2023 5:10pm Start: 05-03-2023 End: 86-71-1295lbbf 10 mg by mouth once dailyBisacodyl Discontinued 10 MG PO Daily 0 May 02, 2023 11:00pm May 03, 2023 4:10pmStart: 01-02-2022 take 10 mg rectal route once daily as bbetoq25 mg, Rectal, DAILY PRN, Starting on Wed01/02/22 at 2231, Until Discontinued, Constipation First line therapy for constipationbismuth subsalicylate 17.5 mg/ml oral suspension (20 sources)BismuthStart: 09-05-2023 End: 72-14-6751izom 300 mg by mouth four times dailyBismuth Subsalicylate (Stomach Relief) 262 mg/15 mL Suspension Discontinued 300 MG PO Four times daily 824.429 12 0 September 054 1:00am October 21, 2023 8:40amcalcium carbonate 1250 mg / cholecalciferol 200 unt oral tablet (6 sources)Vitamin DStart: 05-03-2023 End: 36-13-2779asvu 1 tablet by mouth once at mealtimeCalcium Carbonate-Vitamin D3 (Oyster Shell Calcium-Vit D3) 500 mg-5 mcg (200 unit) Tablet Discontinued 1 TAB PO 3x/Day with meals May 07, 2023 12:00am August 31, 2023 4:56pmCalcium Carbonate-Vitamin D3 (Oyster Shell Calcium-Vit D3) 500 mg-5 mcg (200 unit) Tablet (20 sources)Start: 05-07-2023 End: 31-98-5201rwpj 1 tablet by mouth once at mealtimeCalcium Carbonate-Vitamin D3 (Oyster Shell Calcium-Vit D3) 500 mg-5 mcg (200 unit) Tablet Discontinued 1 TAB PO 3x/Day with meals May 06, 2023 11:00pm August 31, 2023 3:56pmStart: 05-07-2023 End: 62-89-7632hzct 1 tablet by mouth once at mealtimeCalcium Carbonate-Vitamin D3 (Oyster Shell Calcium-Vit D3) 500 mg-5 mcg (200 unit) Tablet Discontinued 1 TAB PO 3x/Day with meals May 07, 2023 12:00am August 31, 2023 4:56pmStart: 32-78-1967vbrn 1 tablet by mouth once at mealtimeCalcium Carbonate- Vitamin D3 (Oyster Shell Calcium-Vit D3) 500 mg-5 mcg (200 unit) Tablet Active 1 TAB PO 3x/Day with meals May 06, 2023 11:00pmStart: 46-08-5974otcf 1 tablet by mouth once at mealtimeCalcium Carbonate-Vitamin D3 (Oyster Shell Calcium-Vit D3) 500 mg-5 mcg (200 unit) Tablet Active 1 TAB PO 3x/Day with meals May 07, 2023 12:00amStart: 05-03-2023 End: 28-50-0986rlue 1 tablet by mouth once at mealtimeCalcium Carbonate-Vitamin D3 (Oyster Shell Calcium-Vit D3) 500 mg-5 mcg (200 unit) Tablet Discontinued 1 TAB PO 3x/Day with meals 0 May 02, 2023 11:00pm May 07, 2023 1:27pm Start: 05-03-2023 End: 49-92-3515ohzg 1 tablet by mouth once at mealtimeCalcium Carbonate-Vitamin D3 (Oyster Shell Calcium-Vit D3) 500 mg-5 mcg (200 unit) Tablet Discontinued 1 TAB PO 3x/Day with meals 0 May 03, 2023 12:00am May 07, 2023 2:27pm Start: 74-50-2586yuws 1 tablet by mouth once at mealtimeCalcium Carbonate- Vitamin D3 (Oyster Shell Calcium-Vit D3) 500 mg-5 mcg (200 unit) Tablet Active 1 TAB PO 3x/Day with meals 0 May 03, 2023 12:00amcalcium chloride 0.0014 meq/ml / potassium chloride 0.004 meq/ml / sodium chloride 0.103 meq/ml / sodium lactate 0.028 meq/ml injectable solution (1 source)Start: 01-02-2022 End: 76-64-8351AmskkWKDqdx, at 125 mL/hr, CONTINUOUS, Starting on Wed01/02/22 at 2300clopidogrel 75 mg oral tablet (20 sources)P2Y12 Platelet InhibitorStart: 08-16-2023 End: 67-03-9593ypuj 1 tablet by mouth once dailyClopidogrel 75 mg tablet Discontinued 75 MG PO Daily August 31, 2023 1:00am February 08, 2024 1:25pm collagenase Clostridium histolyticum (4 sources)Start: 93-51-9531Wtqombd Apr, 0.01 mgcyclobenzaprine hydrochloride 5 mg oral tablet (20 sources)Muscle RelaxantStart: 05-07-2023 End: 00-47-0359itja 1 tablet by mouth every eight hours [...] (20 sources)Sodium-Glucose Cotransporter 2 InhibitorStart: 08-30-2024 End: 17-20-9704dsre 1 tablet by mouth once dailyDapagliflozin Propanediol (Farxiga) 10 mg tablet Discontinued 10 MG PO Daily August 31, 2024 1:00am April 06, 2025 9:44amempagliflozin 10 mg oral tablet (20 sources)Sodium-Glucose Cotransporter 2 InhibitorStart: 03-27-2024 End: 07-11-6259gwmd 1 tablet by mouth once dailyEmpagliflozin (Jardiance) 10 mg tablet Discontinued 10 MG PO Daily 30 30 2 March 27, 2024 12:00am May 16, 2024 1:44pm0.4 ml enoxaparin sodium 100 mg/ml prefilled syringe (20 sources)Low Molecular Weight HeparinStart: 05-03-2023 End: 21-43-3983Dbssmblvqi (Lovenox) 40 mg/0.4 mL Syringe Discontinued 40 MG SUBCUT DAILY@1000 0 15 0 April 12:00am May 07, 2023 2:27pm Start: 13-08-8612qsfuwpiysp (LOVENOX) injection 40 mgferrous sulfate 324 mg delayed release oral tablet (20 sources)Start: 05-07-2023 End: 21-97-1832mxcm 1 tablet by mouth once dailyFerrous Sulfate 324 mg (65 mg iron) Tablet,Delayed Release (Dr/Ec) Discontinued 324 MG PO Daily 30 0 May 07, 2023 12:00am August 31, 2023 4:51pmtake 1 tablet by mouth once daily at mealtimeferrous sulfate, 325 mg ferrous sulfate, (iron) tablet Take 1 tablet (325 mg) by mouth once daily with a meal. 0 Qsoeze383 ml fluconazole 2 mg/ml injection (1 source)Azole AntifungalStart: 01-02-2022 End: 53-05-2182autcbmxlzbt (DIFLUCAN) 400 mg IVPBfurosemide 20 mg oral tablet (20 sources)Loop DiureticStart: 08-09-2024 End: 35-47-4693yohk 1 tablet by mouth once daily in the morningFurosemide 20 mg tablet Discontinued 0 .ROUTE .COMPLEX 90 1 August 09, 2024 12:46pm August 31, 2024 11:10am TAKE 1 TABLET BY MOUTH EVERY DAY AT 8 AMStart: 07-17-2024 End: 20-36-4349zewo 1 tablet by mouth once dailyFurosemide 20 mg Tablet Discontinued 20 MG PO Daily at 0800 30 1 July 17, 2024 1:00am August 09, 2024 12:47pmStart: 02-15-2024 End: 66-92-5325ezxs 1 tablet by mouth once dailyFurosemide (Lasix) 20 mg tablet Discontinued 20 MG PO Daily February 15, 2024 12:00am February 15, 2024 10:58am Start: 08-31-2023 End: 64-14-8464Kgvxajfgzg Discontinued MG TABLET August 31, 2023 12:00am September 05, 2023 2:28pmStart: 08-16-2023 End: 43-48-3709tfsb 1 tablet by mouth once daily as neededFurosemide 20 mg tablet Discontinued 20 MG PO Daily as needed for as instructed 0 90 0 September 03, 2023 11:53am October 21, 2023 8:40am End: 89-40-5425kjqg 10 mg by mouth once dailyfurosemide (Lasix) 20 MG tablet Take 10 mg by mouth Daily 08/30/2024 Discontinued (Therapy completed)Insulin Aspart U-100 (Novolog Flexpen U-100 Insulin) 100 unit/mL (3 mL) insulin pen (20 sources)Start: 05-03-2023 End: 27-43-8268Yroznro Aspart U-100 (Novolog Flexpen U-100 Insulin) 100 unit/mL (3 mL) insulin pen Discontinued 0 units SUBCUT Before meals and at bedtime May 03, 2023 5:09pm May 07, 2023 2:27pm Please contact the information source for Protocol details.Start: 05-03-2023 End: 08-36-7467Fnfawbl Aspart U-100 (Novolog Flexpen U-100 Insulin) 100 unit/mL (3 mL) insulin pen Discontinued 0 units SUBCUT Before meals and at bedtime May 03, 2023 4:09pm May 07, 2023 1:27pm Please contact the information source for Protocol details.Start: 05-03-2023 End: 83-38-9704Bdcsrev Aspart U-100 (Novolog Flexpen U-100 Insulin) 100 unit/mL (3 mL) insulin pen Discontinued 0 units SUBCUT Before meals and at bedtime May 03, 2023 4:09pm May 07, 2023 1:27pmStart: 05-03-2023 End: 62-79-4208Cepzckt Aspart U-100 (Novolog Flexpen U-100 Insulin) 100 unit/mL (3 mL) insulin pen Discontinued 0 units SUBCUT Before meals and at bedtime May 03, 2023 5:09pm May 07, 2023 2:27pmStart: 04-28-2023 End: 98-21-2821kkrjcz 8 [IU] by subcutaneous injection once daily before dinner Insulin Aspart U-100 (Novolog Flexpen U-100 Insulin) 100 unit/mL (3 mL) insulin pen Discontinued 8 UNIT SUBCUT once daily before dinner April 27, 2023 11:00pm May 03, 2023 4:10pmStart: 04-28-2023 End: 18-70-6184hcwrle 5 [IU] by subcutaneous injection after breakfastInsulin Aspart U-100 (Novolog Flexpen U-100 Insulin) 100 unit/mL (3 mL) insulin pen Discontinued 5 UNIT SUBCUT After breakfast and lunch April 27, 2023 11:00pm May 03, 2023 4:10pmStart: 04-28-2023 End: 66-02-3924lntyau 8 [IU] by subcutaneous injection once daily before dinner Insulin Aspart U-100 (Novolog Flexpen U-100 Insulin) 100 unit/mL (3 mL) insulin pen Discontinued 8 UNIT SUBCUT once daily before dinner April 28, 2023 12:00am May 03, 2023 5:10pmStart: 04-28-2023 End: 31-61-4868yjztal 5 [IU] by subcutaneous injection after breakfastInsulin Aspart U-100 (Novolog Flexpen U-100 Insulin) 100 unit/mL (3 mL) insulin pen Discontinued 5 UNIT SUBCUT After breakfast and lunch April 28, 2023 12:00am May 03, 2023 5:10pmStart: 09-30-0039smdcgh 8 [IU] by subcutaneous injection once daily before dinnerInsulin Aspart U-100 (Novolog Flexpen U-100 Insulin) 100 unit/mL (3 mL) insulin pen Active 8 UNIT SUBCUT once daily before dinner April 28, 2023 12:00amStart: 72-55-6358ahihkp 5 [IU] by subcutaneous injection after breakfastInsulin Aspart U-100 (Novolog Flexpen U-100 Insulin) 100 unit/mL (3 mL) insulin pen Active 5 UNIT SUBCUT After breakfast and lunch April 28, 2023 12:00amInsulin Aspart U-100 (Novolog U-100 Insulin Aspart) 100 unit/mL solution (20 sources)Start: 08-31-2023 End: 58-77-9593Uojjcwm Aspart U-100 (Novolog U-100 Insulin Aspart) 100 unit/mL solution Discontinued 50 UNIT CNTSUBQINF Daily August 31, 2023 12:00am September 05, 2023 2:28pm per insulin pumpStart: 08-31-2023 End: 50-73-3872Udckxzn Aspart U-100 (Novolog U-100 Insulin Aspart) 100 unit/mL solution Discontinued 50 UNIT CNTSUBQINF Daily August 31, 2023 1:00am September 05, 2023 3:28pm per insulin pumpInsulin Disposable Pump (Omnipod DASH PDM, Gen 4,) kit (20 sources)Start: 05-30-2024 End: 68-30-3916Frcsycy Disposable Pump (Omnipod DASH PDM, Gen 4,) kit 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) Basal: 12A 0.3, 7A 0.4, 9P 0.5, 10 units breakfast, 8 units with lunch, 7 dinner, ISF: 75 1 each 05/30/2024 05/02/2025 Discontinued (Therapy completed) Start: 49-44-5536Recelpn Disposable Pump (Omnipod DASH PDM, Gen 4,) kit 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) Basal: 12A 0.3, 7A 0.4, 9P 0.5, 10 units breakfast, 8 units with lunch, 7 dinner, ISF: 75 1 each 05/30/2024 ActiveStart: 55-83-7208Appclon Disposable Pump (Omnipod DASH PDM, Gen 4,) kit Indications: Diabetes mellitus secondary to p ancreatic insufficiency (CMS/HCC) Basal: 12A 0.3, 7A 0.4, 9P 0.5, 10 units breakfast, 8 units with lunch, 7 dinner, ISF: 75 1 each 05/30/2024 ActiveStart: 02-04-2023 End: 95-31-1278Cutheiv Disposable Pump (Omnipod DASH PDM, Gen 4,) kit Indications: 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) Basal: 12A 0.3, 7A 0.4, 9P 0.5, 6 units breakfast/lunch, 7 dinner, ISF: 75 1 each 02/04/2023 05/30/2024 Discontinued (Reorder)Start: 19-11-0171Dcauvkt Disposable Pump (Omnipod DASH PDM, Gen 4,) kit Indications: 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) Basal: 12A 0.3, 7A 0.4, 9P 0.5, 6 units breakfast/lunch, 7 dinner, ISF: 75 1 each 02/04/2023 Activeinsulin regular (HUMULIN R;NOVOLIN R) 100 Units in sodium chloride 0.9 % 100 mL infusion (1 source)Start: 01-02-2022 End: 90-60-9164inqlqom regular (HUMULIN R;NOVOLIN R) 100 Units in sodium chloride 0.9 % 100 mL infusioniohexol (OMNIPAQUE 240) injection 100 mL (1 source)Start: 01-05-2022 End: 21-59-0617ralcsdy (OMNIPAQUE 240) injection 100 mL10 ml iron sucrose 20 mg/ml injection (20 sources)Parenteral Iron ReplacementStart: 02-18-2024 End: 19-26-1732Wfua Sucrose (Venofer) 200 mg iron/10 mL solution Discontinued 100 MG IV 3 Times a week 0 February 18, 2024 12:00am March 15, 2024 10:49am administer over 30 minslactobacillus acidophilus [id number] unt oral capsule (20 sources)Start: 08-31-2023 End: 28-92-7319zmoh 10 capsules by mouth once dailyLactobacillus Acidophilus (Probacap) 10 billion cell capsule Discontinued 100 MMU CELLS PO Daily August 31, 2023 1:00am September 05, 2023 3:28pm End: 83-54-9990Dpupnxedizzoj (Probiotic Acidophilus) capsule 1 capsule 1 (one) time each day at the same time. 05/02/2025 Discontinued (Therapy completed) lidocaine hydrochloride 10 mg/ml injectable solution (20 sources)Antiarrhythmic, Amide Local AnestheticStart: 05-03-2023 End: 64-93-4106Ycldhhgsa Hcl (Xylocaine) 10 mg/mL (1 %) Solution Discontinued 0.1 ML INTRADERMA Pre-Op as needed for Venipuncture x 1 Dose 0 0 May 03, 2023 12:00am May 03, 2023 5:10pmlisinopril 2.5 mg oral tablet (20 sources)Angiotensin Converting Enzyme InhibitorStart: 03-27-2024 End: 76-51-4039asbr 1 tablet by mouth once daily in the morningLisinopril 2.5 mg tablet Discontinued 2.5 MG PO Every morning May 16, 2024 1:00am April 06, 2025 9:44amloratadine 10 mg oral tablet (20 sources)Start: 10-26-2023 End: 12-04-1591rlew 1 tablet by mouth once dailyloratadine (Claritin) 10 MG tablet Take 1 tablet by mouth Daily 10/26/2023 05/02/2025 Discontinuedtake 1 tablet by mouth every twenty-four hoursClaritin 10 MG 1 tablet Orally Once a day Activemagnesium hydroxide 80 mg/ml oral suspension (20 sources)Start: 05-03-2023 End: 09-35-6053zror 1 mL by mouth twice daily as needed for constipation Magnesium Hydroxide (Milk Of Magnesia) 400 mg/5 mL Suspension Discontinued 30 ML PO Twice daily as needed for Constipation 0 0 May 03, 2023 12:00am May 07, 2023 2:27pmStart: 05-03-2023 End: 88-97-6286bmnz 1 mL by mouth twice daily as needed for constipation Magnesium Hydroxide (Milk Of Magnesia) 400 mg/5 mL Suspension Discontinued 30 ML PO Twice daily as needed for Constipation 0 May 03, 2023 12:00am May 07, 2023 2:27pmStart: 05-03-2023 End: 69-98-4867cjja 1 mL by mouth twice daily as needed for constipation Magnesium Hydroxide (Milk Of Magnesia) 400 mg/5 mL Suspension Discontinued 30 ML PO Twice daily as needed for Constipation 0 May 02, 2023 11:00pm May 07, 2023 1:27pmStart: 05-03-2023 End: 03-03-7756nqsg 1 mL by mouth twice dailyMagnesium Hydroxide (Milk Of Magnesia) 400 mg/5 mL Suspension Discontinued 30 ML PO Twice daily 0 May 02, 2023 11:00pm May 07, 2023 1:27pmStart: 05-03-2023 End: 30-59-1251wehm 1 mL by mouth twice dailyMagnesium Hydroxide (Milk Of Magnesia) 400 mg/5 mL Suspension Discontinued 30 ML PO Twice daily 0 May 03, 2023 12:00am May 07, 2023 2:27pmStart: 04-77-4743sylk 1 mL by mouth twice dailyMagnesium Hydroxide (Milk Of Magnesia) 400 mg/5 mL Suspension Active 30 ML PO Twice daily 0 2022 12:00ammagnesium oxide 400 mg oral tablet (1 source)Start: 01-07-2022 End: 37-18-6593tqkofgxtr oxide (MAG-OX) tablet 400 mg50 ml magnesium sulfate 40 mg/ml injection (1 source)Start: 01-05-2022 End: 99-79-9500lacehncsh sulfate 2000 mg in 50 mL IVPB premixmethocarbamol (ROBAXIN) 750 mg in dextrose 5 % 100 mL IVPB (1 source)Start: 01-02-2022 End: 81-70-4307627 mg, IntraVENous, at 200 mL/hr, Administer over 30 Minutes, EVERY 6 HOURS, First dose on Wed01/02/22 at 2300metroNIDAZOLE 500 mg oral tablet (20 sources)Nitroimidazole AntimicrobialStart: 09-05-2023 End: 25-52-8815rfvs 1 tablet by mouth three times dailyMetronidazole 500 mg Tablet Discontinued 500 MG PO Three times daily 36 12 0 September 05, 2023 1:0 0am October 21, 2023 8:41amMultiple Vitamins-Minerals (Centrum Silver 50+Men) tablet (20 sources) End: 09-92-9744zwxq 1 tablet by mouth once dailyMultiple Vitamins-Minerals (Centrum Silver 50+Men) tablet Take 1 tablet by mouth 1 (one) time each day. 05/02/2025 Discontinuedtake 1 tablet by mouth once dailyMultiple Vitamins- Minerals (Centrum Silver 50+Men) tablet Take 1 tablet by mouth 1 (one) time each day. BbmxekMwmrtrdjhjur-Wscjokgy-Bhmrlg (Multivitamin 50 Plus) tablet (20 sources)Start: 08-31-2023 End: 90-79-7481Hiusdfpnstyo-Minerals-Lutein (Multivitamin 50 Plus) tablet Discontinued 1 TAB PO Daily August 31, 2023 1:00am February 08, 2024 1:25pm On Hold: duplicateStart: 08-31-2023 End: 62-65-2776Rleecookjqlu-Minerals-Lutein (Multivitamin 50 Plus) tablet Discontinued 1 TAB PO Daily August 31, 2023 12:00am February 08, 2024 12:25pm On Hold: duplicateStart: 08-31-2023 End: 42-97-4819Tgxrmagvvhjn-Minerals-Lutein (Multivitamin 50 Plus) tablet Discontinued 1 TAB PO Daily August 31, 2023 12:00am February 08, 2024 12:25pm Start: 08-31-2023 End: 84-26-6133Cfeshzdccwrz-Minerals-Lutein (Multivitamin 50 Plus) tablet Discontinued 1 TAB PO Daily August 31, 2023 1:00am February 08, 2024 1:25pm Start: 84-22-8138Cmdhphsdrdyg-Minerals-Lutein (Multivitamin 50 Plus) tablet Active 1 TAB PO Daily August 31, 2023 1:00amnitroglycerin 0.4 mg sublingual tablet (20 sources)Nitrate VasodilatorStart: 05-03-2023 End: 10-65-7415Gabthrkkuqrpk 0.4 mg tablet, sublingual Discontinued 0.4 MG SUBLINGUAL Q5M as needed for chest pain30 2 July 16, 2023 1:00am September 05, 2023 3:28pm until response; do not exceed 3 doses per eventNitroglycerin 0.4 MG as directed Sublingual Activeomeprazole 20 mg delayed release oral capsule (20 sources)Proton Pump InhibitorStart: 05-16-2024 End: 69-49-7074qurj 1 capsule by mouth twice dailyOmeprazole 20 mg capsule,delayed release(DR/EC) Discontinued 20 MG PO Twice daily May 16, 2024 1:00am August 31, 2024 11:10amStart: 04-05-2024 End: 53-03-1805Kovhgyuemd Magnesium 20 mg tablet Take 20 mg by mouth. 04/05/2024 04/05/2025 Activepantoprazole 40 mg oral granules (20 sources)Proton Pump InhibitorStart: 02-08-2024 End: 60-85-6285ilhg 40 mg by mouth twice dailyPantoprazole (Protonix) [address] for susp in packet Discontinued 40 MG PO Twice daily 180 90 0 February 08, 2024 12:00am February 15, 2024 10:08amStart: 11-11-2023 End: 79-28-5481zmty 1 tablet by mouth once daily, then take 1 tablet by mouth once dailyPantoprazole (Protonix) 40 mg tablet,delayed release (DR/EC) Discontinued 40 MG PO Daily 180 90 0 November 11, 2023 1:22pm February 08, 2024 1:25pm 40 mg p.o. twice daily x 2 weeks, followed by 40 mg p.o. daily. Please dispense accordingly.Start: 09-03-2023 End: 56-24-0158vyxs 1 tablet by mouth twice daily, then take 1 tablet by mouth once dailyPantoprazole (Protonix) 40 mg tablet,delayed release (DR/EC) Discontinued 40 MG PO Twice daily 180 90 0 February 08, 2024 1:22pm May 16, 2024 1:54pm 40 mg p.o. twice daily x 2 weeks, followed by 40 mg p.o. daily. Please dispense accordingly.Start: 88-83-3107ycej 1 tablet by mouth once daily before breakfastpantoprazole (PROTONIX) 40 MG tablet Take 1 tablet by mouth every morning (before breakfast) 90 tablet 1 01/07/2022 ActiveStart: 01-07-2022 take 1 tablet by mouth once daily before breakfastpantoprazole (PROTONIX) 40 MG tablet Take 1 tablet by mouth every morning (before breakfast) 90 tablet 1 01/07/2022 Active End: 38-57-4173borz 1 tablet by mouth before mealtimepantoprazole (ProtoNix) 40 MG EC tablet Take 40 mg by mouth in the morning. Take before meals. Do not crush, chew, or split. 05/02/2025 Discontinuedpiperacillin-tazobactam (ZOSYN) 3,375 mg in dextrose 5 % 50 mL IVPB (mini-bag) (2 sources)Start: 01-02-2022 End: 88-75-1130jyedyvysdhdx-tazobactam (ZOSYN) 3,375 mg in dextrose 5 % 50 mL IVPB (mini-bag)Start: 01-02-2022 End: 85-72-2780nqtjdbwsaynp-tazobactam (ZOSYN) 3,375 mg in dextrose 5 % 50 mL IVPB (mini-bag)potassium bicarbonate 20 meq effervescent oral tablet (1 source)Start: 01-07-2022 End: 11-35-2101nnahrimle bicarb-citric acid (EFFER-K) effervescent tablet 40 mEq microencapsulated potassium chloride 20 meq extended release oral tablet (20 sources)Start: 05-03-2023 End: 33-68-7869Xkhsfwpkh Chloride (Klor-Con M20) 20 mEq Tablet,Er Particles/Crystals Discontinued 40 MEQ PO STAT as needed for Hypokalemia 0 0 May 03, 2023 12:00am May 03, 2023 5:10pmStart: 01-06-2022 End: 33-30-8959qyxpjtsov chloride (KLOR-CON M) extended release tablet 40 mEq Start: 01-05-2022 End: 69-65-6264dbaltahwr chloride 10 mEq/100 mL IVPB (Peripheral Line)potassium phosphate 155 mg / sodium phosphate, dibasic 852 mg / sodium phosphate, monobasic 130 mg oral tablet (1 source)Start: 01-07-2022 End: 26-91-7623xkbctddilx (K PHOS NEUTRAL) tablet 1 tabletpotassium phosphate 15 mmol in dextrose 5 % 250 mL IVPB (1 source)Start: 01-05-2022 End: 34-43-8493trwvawuyd phosphate 15 mmol in dextrose 5 % 250 mL IVPBsacubitril 24 mg / valsartan 26 mg oral tablet (20 sources)Angiotensin 2 Receptor BlockerStart: 05-16-2024 End: 21-39-0361nedz 1 tablet by mouth twice dailySacubitril-Valsartan (Entresto) 24-26 mg tablet Discontinued 1 TAB PO Twice daily May 16, 2024 1:00am June 16, 2024 7:21pmStart: 02-08-2024 End: 20-76-9511suck 1 tablet by mouth twice dailySacubitril-Valsartan (Entresto) 24-26 mg Tablet Discontinued 1 TAB PO Twice daily 180 90 0 February 08, 2024 12:00am March 27, 2024 11:05am On Hold: hypotension End: 81-45-6617nmdo 1 tablet by mouth in the morningsacubitril-valsartan (Entresto) 24-26 MG tablet Take 1 tablet by mouth in the morning and 1 tablet b efore bedtime. 04/17/2024 Discontinued (Therapy completed)Sennosides (Senna Laxative) 8.6 mg Tablet (20 sources)Start: 05-03-2023 End: 76-50-5364nrzw 2 tablets by mouth at bedtime as needed for constipation Sennosides (Senna Laxative) 8.6 mg Tablet Discontinued 2 TAB PO Bedtime as needed for constipation 0 May 03, 2023 12:00am May 03, 2023 5:10pm Start: 05-03-2023 End: 75-81-5123xywy 2 tablets by mouth at bedtime as needed for constipation Sennosides (Senna Laxative) 8.6 mg Tablet Discontinued 2 TAB PO Bedtime as needed for constipation 0 May 02, 2023 11:00pm May 03, 2023 4:10pm Start: 05-03-2023 End: 19-70-7609wvgx 2 tablets by mouth at bedtimeSennosides (Senna Laxative) 8.6 mg Tablet Discontinued 2 TAB PO Bedtime 0 May 02, 2023 11:00pm May 03, 2023 4:10pmStart: 05-03-2023 End: 44-01-4246mnzv 2 tablets by mouth at bedtimeSennosides (Senna Laxative) 8.6 mg Tablet Discontinued 2 TAB PO Bedtime 0 May 03, 2023 12:00am May 03, 2023 5:10pmStart: 38-47-6030mugk 2 tablets by mouth at bedtimeSennosides (Senna Laxative) 8.6 mg Tablet Active 2 TAB PO Bedtime 0 May 03, 2023 12:00amsennosides, group home 8.6 mg oral tablet (3 sources)Start: 05-03-2023 End: 11-80-2182jkwq 2 tablets by mouth at bedtime as needed for constipation Sennosides (Senna Laxative) 8.6 mg Tablet Discontinued 2 TAB PO Bedtime as needed for constipation 0 0 May 03, 2023 12:00am May 03, 2023 5:10pm sucralfate 1000 mg oral tablet (20 sources)Aluminum ComplexStart: 02-08-2024 End: 76-32-0317lpvn 1 tablet by mouth every six hoursSucralfate 1 gram Tablet Discontinued 1 GM PO Every 6 hours 360 90 0 February 08, 2024 12:00am April 26, 2024 10:28amStart: 89-46-6899ppmx 10 mL by mouth four times daily sucralfate (CARAFATE) 1 GM/10ML suspension Take 10 mLs by mouth 4 times daily 1200 mL 3 01/07/2022 ActiveStart: 56-20-5400vran 10 mL by mouth four times daily sucralfate (CARAFATE) 1 GM/10ML suspension Take 10 mLs by mouth 4 times daily 1200 mL 3 01/07/2022 ActiveStart: 99-85-7325rqsazrpmfq (CARAFATE) 1 GM/10ML suspension 1 gtetracycline hydrochloride 500 mg oral capsule (20 sources)Tetracycline-class AntimicrobialStart: 09-06-2023 End: 10-57-9506vlfd 1 capsule by mouth four times dailyTetracycline 500 mg capsule Discontinued 500 MG PO Four times daily 112 0 September 06, 2023 1:00am October 21, 2023 8:42amStart: 09-05-2023 End: 37-56-1629psms 1 capsule by mouth four times dailyTetracycline 250 mg Capsule Discontinued 500 MG PO Four times daily 112 14 0 September 05, 2023 1:0 0am October 21, 2023 8:42amStart: 09-05-2023 End: 73-80-6227dpmb 500 mg by mouth four times dailyTetracycline Discontinued 500 MG PO Four times daily 112 14 September 05, 2023 12:00am October 7:42amticagrelor 90 mg oral tablet (20 sources)Start: 07-16-2023 End: 61-78-8845qtix 1 tablet by mouth twice dailyTicagrelor (Brilinta) 90 mg tablet Discontinued 90 MG PO Twice daily 180 3 July 16, 2023 1:00amFebruary 2023 3:28pmtriamcinolone acetonide 1 mg/ml topical cream (20 sources)CorticosteroidStart: 05-03-2023 End: 29-66-9914Wyglnkyeixtgl Acetonide 0.1 % Cream Discontinued 1 APPLIC TOPICAL Four times daily as needed for Irritation 15 0 May 07, 2023 12:00am October 28, 2023 10:38amStart: 97-03-9386Fyvmcbj -40 mg Apr, 40 mg Triamcinolone Acetonide 0.1 % 1 application Externally Two times a Week Active Triamcinolone Acetonide 0.1 % 1 application Externally Two times a Week Active valsartan 80 mg oral tablet (20 sources)Angiotensin 2 Receptor BlockerStart: 10-28-2023 End: 16-16-7617xmyf 1 tablet by mouth once dailyValsartan 80 mg tablet Discontinued 80 MG PO Daily 90 90 1 October 28, 2023 12:00am February 08, 2024 1:25pmStart: 09-03-2023 End: 18-53-4366Hiawqlryi 160 mg Tablet Discontinued 80 MG PO Daily 30 30 0 September 03, 2023 11:53am October 2:46pmStart: 09-03-2023 End: 30-25-9579kony 80 mg by mouth once dailyValsartan Discontinued 80 MG PO Daily 30 30 September 03, 2023 10:53am October 28, 2023 1:46pmStart: 05-07-2023 End: 09-84-8085pxyd 1 tablet by mouth once dailyValsartan 160 mg Tablet Discontinued 160 MG PO Daily 30 30 0 May 07, 2023 12:00am September 05, 2023 3:28pmStart: 05-03-2023 End: 58-28-2299rmvo 1 tablet by mouth once dailyValsartan 80 mg Tablet Discontinued 80 MG PO Daily 0 0 May 03, 2023 12:00am May 07, 2023 2:27pm Problems Active Problems Problem ClassificationProblemDateDocumented DateEpisodic/ChronicAcute and unspecified renal failure (2 sources)Acute renal failure syndromeOnset: [id number] myocardial infarction (20 sources)Myocardial infarction; Translations: [Non-ST elevation (NSTEMI) myocardial infarction]Onset: 508434-95-7875ZooxlwkUbloowgjulzmfk/social admission (20 sources)Other reduced mobility; Translations: [Impaired mobility and activities of daily living]17-49-3645RoskwzvzFfktgye on above:Problem List clean-up per request of Phys. EHR CmteAnxiety disorders (20 sources)Mixed anxiety and depressive disorder; Translations: [Anxiety disorder, unspecified]Onset: 01-08-2023 Resolved: 674596-91-8467XlpxegqIccvizc dysrhythmias (20 sources)Paroxysmal ventricular tachycardia; 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]33-47-3235JoknstrZevqthz on above:Problem List clean-up per request of Phys. EHR CmteChronic kidney disease (2 sources)Chronic kidney diseaseOnset: 477880-74-4991XuiccyzBjmscgq obstructive pulmonary disease and bronchiectasis (15 sources)Acute exacerbation of chronic obstructive airways disease; Translations: [Chronic obstructive pulmonary disease with (acute) exacerbation] Onset: 613285-63-3509HgpangjJrdpkto obstructive pulmonary disease and bronchiectasis (4 sources)Bronchitis; Translations: [Bronchitis, not specified as acute or chronic]38-67-9991VmfshmyyRnazkjwoic disorders (20 sources)H/O: cardiac pacemaker in situ; Translations: [Presence of automatic (implantable) cardiac defibrillator]Onset: 598953-38-6041Ctlgwla Congestive heart failure; nonhypertensive (20 sources)Acute on chronic systolic heart failure; Translations: [Acute on chronic systolic (congestive) heart failure]Onset: 879901-41-3678Ggmngby Coronary atherosclerosis and other heart disease (20 sources)Double coronary vessel disease; Translations: [Atherosclerotic heart disease of [place] coronary artery without angina pectoris]Onset: 01-31-2019 31-64-1652UqrckbiFdpzbwt on above:Problem List clean-up per request of Phys. EHR CmteCoronary atherosclerosis and other heart disease (20 sources)Patient post percutaneous transluminal coronary angioplasty; Translations: [Coronary angioplasty status]41-55-3179VlfhrrfpOdwoanbxjw and other anemia (20 sources)Anemia; Translations: [Anemia, unspecified]39-24-2577UenbfdcvBfwiaeo on above:Problem List clean-up per request of Phys. EHR CmteOutside Source Comment: Comment on above: Problem List clean-up per request of Phys. EHR Cmte Deficiency and other anemia (3 sources)Anemia, unspecified; Translations: [Anemia, unspecified]05-08-2023 EpisodicDiabetes mellitus without complication (20 sources)Insulin pump present; Translations: [Presence of insulin pump (external) (internal)]Onset: 921760-19-6345QnyquqpbRpzsqicpw of lipid metabolism (20 sources)Mixed hyperlipidemia; Translations: [Mixed hyperlipidemia]Onset: 081250-73-7187EjybidsUdewcihhle disorders (20 sources)Lewis's esophagus; 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]74-03-9208DcvxgrySupbdovib hypertension (20 sources)Hypertensive disorder; Translations: [Essential (primary) hypertension]Onset: 967381-09-7967NxbnjajOqlkxykv of upper limb (1 source)Other fracture of upper end of left radius, initial encounter for closed fracture; Translations: [Other fracture of upper end of left radius, initial encounter for closed fracture]Onset: 50-46-1149AumwelsiJcxidelzuyyitr ulcer (except hemorrhage) (20 sources)Perforation of stomach; Translations: [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]Onset: 01-06-2022 Resolved: 34-28-3591MyrktalOlpolmo on above:previous rupture with repair.Outside Source Comment: previous rupture with repair.Gastroduodenal ulcer (except hemorrhage) (20 sources)Acute gastric ulcer with perforation; Translations: [Acute gastric ulcer with perforation]Onset: 78-31-3800HgxzenigQdsgyxmnwezgcnrr hemorrhage (20 sources)Melena; Translations: [Melena]12-83-0202FlajrgjvVtrobxxpayzdz symptoms and ill-defined conditions (20 sources)Hematuria, unspecified; Translations: [Blood in urine]Onset: 06-05-2022 Resolved: 06-43-0388PtwnveuvTqmee valve disorders (20 sources)Non-rheumatic mitral regurgitation ; Translations: [Nonrheumatic mitral (valve) insufficiency]Onset: 324759-72-2210OzmtlkiUsfmdlijftu of prostate (20 sources)Benign prostatic hyperplasia; Translations: [Benign prostatic hyperplasia without lower urinary tract symptoms]Onset: ChronicHypertension with complications and secondary hypertension (2 sources)Hypertensive heart disease with congestive heart failure; Translations: [Hypertensive heart diseasewith heart failure]00-66-1381Aidadlw Intestinal infection (20 sources)Infection caused by Helicobacter pylori; Translations: [Other specified bacterial intestinal infections]82-21-1171CmlnbratPqyz disorders (20 sources)Moderate major depression, single episode; Translations: [Major depressive disorder, single episode, moderate]Onset: hronic Nonspecific chest pain (1 source)Chest pain, unspecified; Translations: [Chest pain, unspecified]Onset: 66-11-7811EzwtnbpiSazovxvhdtz deficiencies (20 sources)Deficiency of macronutrients; Translations: [Mild protein-calorie malnutrition]34-03-5419KedwcqdPpyocbqvsrzk (20 sources)Osteoporosis; Translations: [Age-related osteoporosis without current pathological fracture]64-34-7175XahrbnwYkxoxjm on above:Problem List clean-up per request of Phys. EHR CmteOutside Source Comment: Comment on above: Problem List clean-up per request of Phys. EHR CmteOther aftercare (2 sources)Post-discharge follow-up; Translations: [Encounter for follow-up examination after completed treatment for conditions other than malignant neoplasm]95-48-2947LytdyonnRhfpm aftercare (2 sources)Encounter for follow-up examination after completed treatment for conditions other than malignant neoplasm; Translations: [Unspecified follow-up examination]04-19-8030GiyxswetMfwos and ill-defined heart disease (20 sources)Left ventricular systolic dysfunction; Translations: [Other ill- defined heart diseases]22-98-2212YzvpispGxlfknz on above:Problem List clean-up per request of Phys. EHR CmteOther and ill-defined heart disease (7 sources)Other ill-defined heart diseases; Translations: [Heart disease, unspecified]08-22-4376PbumdbsAwist and ill-defined heart disease (3 sources)Mild left ventricular systolic dysfunction; Translations: [Other ill- defined heart diseases]63-18-9155UnytrzjVqhfivl on above:Problem List clean-up per request of Phys. EHR CmteOther circulatory disease (4 sources)Orthostatic hypotension; Translations: [Orthostatic hypotension] 64-70-1441AqslatupAktkk connective tissue disease (4 sources)Dupuytren contracture of right palm; Translations: [Palmar fascial fibromatosis [Dupuytren]]EpisodicOther diseases of kidney and ureters (3 sources)Hydronephrosis; Translations: [Unspecified hydronephrosis]Onset: 79-77-2749WvqntiddQkaxx fractures (20 sources)Fracture of spinous process of cervical vertebra; Translations: [Fracture of neck, unspecified, initial encounter]06-99-3103VwsqniiaWnkdp fractures (20 sources)Fracture of cervical spine; Translations: [Fracture of neck, unspecified, initial encounter]67-65-5173YrldptjhEcqnw fractures (20 sources)Closed fracture of vertebral column; Translations: [Closed fracture of vertebra]50-96-9134CcufxslgVrwbs fractures (20 sources)Closed fracture of fifth cervical vertebra; Translations: [Unspecified displaced fracture of fifth cervical vertebra, initial encounter for closed fracture]39-28-7179VcpurrvsKhqem fractures (2 sources)Unspecified displaced fracture of fifth cervical vertebra, initial encounter for closed fracture; Translations: [Closed fracture of fifth cervical vertebra]52-88-7600QysqrcgkNoscf gastrointestinal disorders (2 sources)Viscus structure finding; Translations: [Other specified symptoms and signs involving the digestivesystem and abdomen]Onset: 87-68-1437EqrjhdgdWtsbf lower respiratory disease (2 sources)Orthopnea; Translations: [Orthopnea]Onset: 488583-13-3748 EpisodicOther lower respiratory disease (1 source)Orthopnea; Translations: [Orthopnea]Onset: 31-38-9278EsgbrwnqHacei lower respiratory disease (9 sources)Pleuritic pain; Translations: [Pleurodynia]96-33-8272ErtyctsiVhlaa lower respiratory disease (2 sources)Lower respiratory tract infection; Translations: [Unspecified acute lower respiratory infection]97-75-1846TigvcgggLcggj nervous system disorders (6 sources)Carpal tunnel syndrome; Translations: [Carpal tunnel syndrome, left upper limb]68-03-5401JujuzlxNgyde nervous system disorders (7 sources)Other acute postprocedural pain; Translations: [Pain in joint, pelvic region and thigh]15-63-8612SxnqnetfPobsf nutritional; endocrine; and metabolic disorders (1 source)Hypomagnesemia; Translations: [Hypomagnesemia]Onset: 17-01-3798Ecjjgyw Other screening for suspected conditions (not mental disorders or infectious disease) (20 sources)Raised cardiac enzyme or marker; Translations: [Other specified abnormal findings of blood chemistry]Onset: 558451-82-9640AflmsvjlNlvebbt on above:Problem List clean-up per request of Phys. EHR CmtePancreatic disorders (not diabetes) (20 sources)Pancreatic insufficiency; Translations: [Other specified diseases of pancreas]Onset: 637748-74-7313HybilullVszujxutvu and visceral atherosclerosis (2 sources)Arteriosclerotic vascular diseaseOnset: hronic Peritonitis and intestinal abscess (17 sources)Abdominal iwyhmad51-86-4485DmcwoxroDnswpuxp; pneumothorax; pulmonary collapse (4 sources)Pleurisy; Translations: [Pleurisy]54-86-8438JykddvqaRcdymvahe heart disease (20 sources)Pulmonary arterial hypertension; Translations: [Secondary pulmonary arterial hypertension]Onset: 821277-79-3298SoiuyfkBjmrpyue codes; unclassified (20 sources)Disorder of pancreas; 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]Onset: 97-72-1853BsqbajeCehapueo codes; unclassified (20 sources)History of pancreatectomy; 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]97-39-8705RygfloqMcomauum codes; unclassified (4 sources)Acquired total absence of pancreas; 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]65-69-4778SempptxXptkkuma codes; unclassified (2 sources)Body mass index 20-24 - normal; Translations: [Body mass index (BMI) 20.0-20.9, adult]Onset: 025701-39-6459NkhqijppHemnzczllist (1 source)CONTACT W/AND (SUSP) EXPOS COVID-19; Translations: [CONTACT W/AND (SUSP) EXPOS COVID-19]Onset: 03-53-8464Aobfjwpcggao (1 source)I25.10 - Atherosclerotic heart disease of [place] coronary artery without angina pectoris,I25.5 - Ischemic cardiomyopathy,R06.00 - Dyspnea, unspecified Unclassified (2 sources)Patient encounter flryku70-53-3922Gqtrcxrhyaee (1 source)High Blood SugarOnset: 10-26-2024 Past or Other Problems Problem ClassificationProblemDateDocumented DateEpisodic/ChronicAbdominal pain (3 sources)Upper abdominal pain, unspecified; Translations: [UPPER ABDOMINAL PAIN, UNSPECIFIED]Onset: 04-00-3623PvtwpavaNbjlrzq dysrhythmias (20 sources)Bradycardia; Translations: [Bradycardia, unspecified]Onset: 955174-35-8809IdzdptwdPduxagehdy and other anemia (1 source)Iron deficiency anemia, unspecified; Translations: [Iron deficiency anemia, unspecified]Onset: 00-26-5884ZnqqpxpkTggzpemx mellitus with complications (20 sources)Diabetes mellitus; Translations: [Uncontrolled diabetes mellitus] Onset: 05-02-2023 Resolved: 854801-76-7809CkrbnrgDuyydkn on above:Problem List clean-up per request of Phys. EHR CmteDiabetes mellitus without complication (20 sources)Secondary diabetes mellitus; Translations: [Diabetes mellitus due to underlying condition without complications]Onset: 01-02-2022 Resolved: 53-72-8974QqklkcjRbvkxdp on above:type 1- insulin pump in place. Outside Source Comment: Comment on above: Problem List clean-up per request of Phys. EHR CmteFracture of neck of femur (hip) (20 sources)Closed intertrochanteric fracture; Translations: [Displaced intertrochanteric fracture of right femur, initial encounter for closed fracture]Onset: 05-25-2023 Resolved: 602204-66-0616CwjhmyiiVflcozu on above:Problem List clean-up per request of Phys. EHR CmteImmunizations and screening for infectious disease (20 sources)Needs influenza immunization; Translations: [Encounter for immunization]Onset: 05-19-2023 Resolved: 247513-13-2041KgfuhbqgPtuu disorders (20 sources)Mood disordersOnset: 881229-37-8416Uihhrrkmn of unspecified nature or uncertain behavior (20 sources)Benign neoplasm of pancreas; Translations: [Neoplasm of unspecified behavior of digestive system]Onset: 06-23-2018 Resolved: 420828-88-0919SquifkcyAynzjsuatlr deficiencies (20 sources)Iron deficiency; Translations: [Iron deficiency]Onset: 06-16-2024 58-47-5495SfkozfknWicgj connective tissue disease (20 sources)Dupuytren's contracture; Translations: [Palmar fascial fibromatosis [Dupuytren]]Onset: 02-05-2023 Resolved: 274134-60-8601RecxoxtvTgisy connective tissue disease (20 sources)Pain of right thigh; Translations: [Pain in right thigh]Onset: 05-19-2023 Resolved: 677884-83-5015FrmqymisWcfww fractures (20 sources)Closed fracture of fourth cervical vertebra; Translations: [Unspecified nondisplaced fracture of fourth cervical vertebra, subsequent encounter for fracture with routine healing]Onset: 09-09-2023 Resolved: 793314-25-9813PmqiklspBjgvt lower respiratory disease (20 sources)Other nonspecific abnormal finding of lung field; Translations: [Other nonspecific abnormal findingof lung field]Onset: 02-05-2023 Resolved: 917948-13-3144NhjapdyuOcfil lower respiratory disease (6 sources)Pleurodynia; Translations: [Painful respiration]Onset: 07-16-2024 10-73-2137NoteevboWomkv nervous system disorders (20 sources)Carpal tunnel syndrome of left wrist; Translations: [Carpal tunnel syndrome, left upper limb]Onset: 02-28-2024 Resolved: 738385-26-3853WpenjnmRpwhq nervous system disorders (20 sources)Hip pain; Translations: [Other acute postprocedural pain]Onset: 05-26-2023 Resolved: 870021-11-5042YlaavlpwCkjvrly on above:Problem List clean-up per request of Phys. EHR CmtePathological fracture (20 sources)Fracture of bone of hip region; Translations: [Age-related osteoporosis with current pathological fracture, unspecified femur, sequela] Onset: 05-19-2023 Resolved: 936671-98-0545VxwrofimAuxrzonxm (except that caused by tuberculosis or sexually transmitted disease) (2 sources)Bilateral pneumoniaOnset: 450714-27-5850BwviaddxLilezjem codes; unclassified (2 sources)Body mass index (BMI) 20.0-20.9, adult; Translations: [Body mass index (BMI) 20.0-20.9, adult]Onset: 17-93-1474XownijrdVvbcorllqd (except in labor) (20 sources)Sepsis due to Escherichia coli; Translations: [Sepsis due to Escherichia coli [E. coli]]Onset: 05-02-2023 Resolved: 849061-61-0845MyyplpmbIoow and subcutaneous tissue infections (20 sources)Abscess of abdominal wall; Translations: [Cutaneous abscess of abdominal wall]Onset: 06-19-2024 Resolved: 604961-98-3631VaqehkzsVejjsdzcz-lmzgwim disorders (20 sources)Smoker; Translations: [Nicotine dependence, unspecified, uncomplicated]Onset: 2018 Resolved: 561573-91-2427CggzaneCkdloitmdqlx (2 sources)Onset: 05-25-2023 Resolved: Results Test NameValueInterpretationReference RangeFacilityC Urineon 26-31-1966Pjytkgwf identified Cx Nom (U)Microbiology PROCEDURE: Urine Culture [...] Locations R1: This test was performed at: [facility], [address] [place] [address], [address]- , , ScfppnRgpcquSelect Medical Specialty Hospital - AkronComment on above:Performed By: #### [id number] #### [facility] [address] [place] [id number] Clinical Summaryon 47-68-3732TV Clinical SummaryED Clinical Summary [address] [address] ED Clinical Summary Person Information Name: MANOLO ROCHE [facility] Age: 89 Years : 1935 Sex: Male Language: Palestinian PCP: SALVADOR NARANJO DO Marital Status: Visit [...] 05/17/2025 12:34:28 05/17/2025 12:34:28 05/17/2025 12:34:28 ADDRESS: [address] [place] [id number] PHYS DOC NOTES: MEDICAL INFORMATION: Prescriptions Given: New Medications [id number], [address], [place] [id number], [phone] phenazopyridine (Pyridium 200 mg Tab) 1 Tablets By Mouth 3 times a day for 2 Days. Refills: 0. Medications to Continue Taking That Have Changed [id number], [address], [place] [id number], [phone] START: cephalexin (Keflex 500 mg Cap) 1 [...] With: Address: Devin: Tristan GORDON, [address], [address] [address] Business (1) In 3 days 05/20/2025 DIAGNOSIS: Bacterial infection, unspecified; UTI (urinary tract infection), bacterialNormal [facility] CenterED Note-Physicianon 88-43-0656QK Note-PhysicianED Note-Physician Basic Information Time Seen: Evonne [...] day(s), # 10 cap(s), Refills(s) 0, Pharmacy: [id number], 177, cm, 05/17/25 10:58:00 EST, Height/Length Dosing, 61.7, kg, 05/17/25 10:58:00 EST,Weight Dosing phenazopyridine, 200 mg = 1 tab(s), Oral, TID, X 2 day(s), # 6 tab(s), Refills(s) 0, Pharmacy: [id number], 177, cm, 05/17/25 10:58:00 EST, Height/Length [...] JULIO In 3 days 05/20/2025 EST [address] [facility] [address] [place], [place] [id number] [facility] (1) Additional Instructions: Patient Education Urinary Tract [...] made to ensure accuracy, however, inadvertently computerized wood die maker mistakes may be present. Appropriate healthcare PPE [...] capsule, Oral, q24hr atorvastat (more content not included)...[facility] Comment on above:Result Comment: Electronically Signed By: Chao Douglass PA-C\.br\Date and Time Signed: 05/17/2512:33 EST\.br\Electronically Co-Signed By: Mely Rollins M.D.\.br\Date and Time Co-Signed: 05/17/25 17:40 ESTED Patient Summaryon 23-88-7291FV Patient SummaryED Patient Summary [place] [id number] Patient Discharge Instructions Person Information Name: MANOLO ROCHE Age: 89 Years Arrival Date: 05/17/2025 10:44:24 Discharge Diagnosis: Bacterial infection, unspecified; UTI (urinary tract infection), bacterial Primary Care Physician: SALVADOR NARANJO DO Provider Information Primary Provider: Mely Rollins M.D. Advanced Event Technician:Chao Douglass PA-C The exam and treatment you received in the Emergency Department were for an urgent problem and are not intended as complete care. It is important that you follow up with a doctor, nurse practitioner,or physician???s land surveyor assistant for ongoing care. If your symptoms become worse or you do not improve asexpected and you are unable to reach your usual health care provider, you should return to the Emergency Department. We are available 24 hours a day. MANOLO ROCHE has been given the following list of patient education materials, prescriptions and follow-up instructions: Follow-up Instructions: With: Address: When: Tristan MELCHOR [address] [place] [address], [address], [address] [address] Business (1) In 3 days 05/20/2025 In the event that this physician does not participate in your insurance network, please consult with your insurance company to find a nearby participating provider. Patient Education Materials: Urinary Tract Infection, Adult A MESSAGE TO ALL PATIENTS REGARDING OPIOIDS PRESCRIPTION OPIOIDS: WHAT YOU NEED TO KNOW Prescription opioids can be used to help relieve hxweilax-io-tshcte pain and are often prescribed following a [...] overdose. ??? If you (more content not included)...[facility] Hospital - AkronUA with Cult Rflxon 27-82-0929Okssw (U)YellowNormalYellowLancaster Municipal HospitalComment on above:Order Comment: Added by Monroe ExpertResult Comment: Microscopic readings are only performed on those samples that meet specific criteria set forth by [facility].Performed By: #### [id number] #### [facility] [address], [place] [address] (U) [Mass/Vol]NegativeNormalNegGenesis HospitalComment on above:Order Comment: Added by Monroe ExpertPerformed By: #### [id number] #### [facility] [address], [place] [address]Vnhqsgv Ql (U)NegativeNormalNegGenesis Hospital Comment on above:Order Comment: Added by Monroe ExpertPerformed By: #### [id number] #### [facility] [address], [place] [address]FL Blood1+ mg/dLAbnormalNegativeLancaster Municipal Hospital Comment on above:Order Comment: Added by Monroe ExpertPerformed By: #### [id number] #### [facility] [address], [place] [address]IQ ClarityEx.TurbidAbnormalClearFAkron Children's Hospital Comment on above:Order Comment: Added by Monroe ExpertPerformed By: #### [id number] #### [facility] [address], [place] [address]XV Leuk Nxk809 Jatinder/uLAbnormalNegativeLancaster Municipal HospitalComment on above:Order Comment: Added by Monroe ExpertPerformed By: #### [id number] #### [facility] [address], [place] [address]GT Nitrite1+ mg/dLAbnormalNegGenesis Hospital Comment on above:Order Comment: Added by Monroe ExpertPerformed By: #### [id number] #### [facility] [address], [place] [address]GG pH8.0Invalid Interpretation Code5.0-9.0L[facility] Municipal HospitalComment on above:Order Comment: Added by Monroe ExpertPerformed By: #### [id number] #### [facility] [address], [place] [address]QC Protein2+ mg/dLAbnormalNegGenesis Hospital Comment on above:Order Comment: Added by Monroe ExpertPerformed By: #### [id number] #### [facility] [address], [place] [address]WX Spec Grav1.014Invalid Interpretation Code1.005-1.030L[facility] Municipal HospitalComment on above:Order Comment: Added by Monroe Expert Performed By: #### [id number] #### [facility] [address], [place] [address]WW UrobilinogenNegativeNormalNegGenesis HospitalComment on above:Order Comment: Added by Discern ExpertPerformed By: #### [id number] #### [facility] [address], [place] [address]PA WBC Lwxsb80-45JevfudzoXjgpvrSelect Medical Specialty Hospital - ColumbusComment on above:Order Comment: Added by Discern ExpertPerformed By: #### [id number] #### [facility] [address], [place] [address]Mlnatodpckal (U) [Mass/Vol]NegativeNormalNegGenesis HospitalComment on above:Order Comment: Added by Monroe ExpertPerformed By: #### [id number] #### [facility] [address], [place] [address]OM Bacteria4+ /HPFAbnormMercy Health Lorain Hospital Comment on above:Order Comment: Added by Monroe ExpertPerformed By: #### [id number] #### [facility] [address], [place] [address]HE CA Ox CrystalPresentAbnKettering Health Comment on above:Order Comment: Added by Monroe ExpertPerformed By: #### [id number] #### [facility] [address], [place] [address]TZ MucousTraceNormalNegGenesis HospitalComment on above:Order Comment: Added by Monroe ExpertPerformed By: #### [id number] #### [facility] [address], [place] [address]MP ERQ8-10Jlfzegzf7-5Ytcmka Meritus Medical CenterComment on above:Order Comment: Added by Monroe ExpertPerformed By: #### [id number] #### [facility] [address], [place] [address]KM WBC>90Bbdmpavn1-6Gpxrsh [facility]itus Medical CenterComment on above:Order Comment: Added by Discern ExpertPerformed By: #### [id number] #### [facility] [address], [place] [address]ZF with Cult Rflx SPon 80-53-7949HY Spec DescFoleyNormalFishmichelle [facility]itus Medical CenterComment on above:Performed By: #### [id number] #### [facility] [address], [place] [address]KTVsp 32-67-9654Ppf [address] [address] Cardiac Rehab Report Signed Patient: MANOLO ROCHE MR#: [id number] : 1935 Acct:[id number] Age/Sex: 89 / M ADM Date: 05/10/25 Loc: CR Attending Dr: Anat Perez M.D. Ordering Physician: Marito Jimenez M.D. Date of Service: 05/10/25 Procedure(s): ITP Accession Number(s): [id number] cc: [facility] Test Date: 2025-05-10 Pat Name: MANOLO ROCHE Department: Room: - Gender: Male Hplc Chemist: : 1935 Requested By: MARITO JIMENEZ Order Number: [id number] Reading MD: CHUCK ROACH M.D. Interpretive Statements Patient may start cardiac rehab as outlined in the treatment plan. Electronically Signed On 05-10-2025 15:43:30 EDT by CHUCK ROACH M.D. Dictated By: CHUCK ROACH Signed By: 05/10/25 1544 05/10/25 1544 DD/ 1433 TD/TT: Drug And Alcohol Counselor:TBHRadiology, Radiologist, - 05/10/[address] [address] Cardiac Rehab Report Signed Patient: MANOLO ROCHE MR#: [id number] : 1935 Acct:[id number] Age/Sex: 89 / M ADM Date: 05/10/25 Loc: CR Attending Dr: Anat Perez M.D. Ordering Physician: Marito Jimenez M.D. Date of Service: 05/10/25 Procedure(s): ITP Accession Number(s): [id number] cc: [facility] Test Date: 2025-05-10 Pat Name: MANOLO ROCHE Department: Room: - Gender: Male Hplc Chemist: : 1935 Requested By: MARITO JIMENEZ Order Number: [id number] Vu MD: CHUCK ROACH M.D. Interpretive Statements Patient may start cardiac rehab as outlined in the treatment plan. Electronically Signed On 05-10-2025 15:43:30 EDT by CHUCK ROACH M.D. Dictated By: CHUCK ROACH Signed By: 05/10/25 1544 05/10/25 1544 DD/ 1433 TD/TT: Drug And Alcohol Counselor: NETO HealthcareRadiology Study observation (narrative)[facility] HealthcareITPOrdered By: Radiologist Radiology on 96-05-6533QVBE jobsite123 Work Phone: ITPon [phone], [place] [address] Cardiac Rehab Report Signed Patient: MANOLO ROCHE MR#: [id number] : 1935 Acct:[id number] Age/Sex: 89 / M ADM Date: 05/07/25 Loc: CR Attending Dr: Anat Perez M.D. Ordering Physician: CHUCK ROACH Date of Service: 05/08/25 Procedure(s): ITP Accession Number(s): [id number] cc: [facility] Test Date: 2025-05-08 Pat Name: MANOLO ROCHE Department: Room: - Gender: Male Hplc Chemist: : 1935 Requested By: CHUCK ROACH M.D. Order Number: [id number] uV MD: CHUCK ROACH M.D. Interpretive Statements Patient may start cardiac rehab as outlined in the treatment plan. Electronically Signed On 05-08-2025 19:06:51 EDT by CHUCK ROACH M.D. Dictated By: CHUCK ROACH Signed By: 05/08/25190605/08/251906 DD/ 08 TD/TT: Drug And Alcohol Counselor:Iris Hartley MD - 05/08/2025 [place] [address] Cardiac Rehab Report Signed Patient: MANOLO ROCHE MR#: [id number] : 1935 Acct:[id number] Age/Sex: 89 / M ADM Date: 05/07/25 Loc: CR Attending Dr: Anat Perez M.D. Ordering Physician: CHUCK ROACH Date of Service: 05/08/25 Procedure(s): ITP Accession Number(s): [id number] cc: [facility] Test Date: 2025-05-08 Pat Name: MANOLO ROCHE Department: Room: - Gender: Male Hplc Chemist: : 1935 Requested By: CHUCK ROACH M.D. Order Number: [id number] Reading MD: CHUCK ROACH M.D. Interpretive Statements Patient may start cardiac rehab as outlined in the treatment plan. Electronically Signed On 05-08-2025 19:06:51 EDT by CHUCK ROACH M.D. Dictated By: CHUCK ROACH Signed By: 05/08/25190605/08/251906 DD/ 08 TD/TT: Drug And Alcohol Counselor: NETO HealthcareRadiology Study observation (narrative)[facility] HealthcareITPOrdered By: Radiologist Radiology on 67-09-4500[facility] Work Phone: cNOVon [phone] Visit (ENDOLN) MANOLO ROCHE ([id number]) 1935 M Date Time Provider Department 05/03/25 [...] DM Type 1. Here with . At [facility] 03/2025, patient was transitioned from Omnipod to [...] pancreatectomy in September 2019 at [facility] in [place]. Per patient, this was done due to [...] (more content not included)...NormalSouthwest General Health Centeron 23-96-1512BJMXDlpexfwnf (ENDOLN) MANOLO ROCHE ([id number]) 1935 M Date Time Provider Department 05/03/25 AYANA ZAVALA ENDOLN During your visit today, we recorded the following information about you: Miguel A Goodwin MA 05/03/2025 8:43 AM Signed Attempted to reach patients as a reminder that patient has a 10 am appointment with Marc our religious educator and an appointment at 11 a.m. with Ayana. Also left detailed message that we wanted to know if he has been checking his blood glucose and if so to please bring those to todays appointment. Allergies As of Date: 05/03/2025 (No Known Allergies) Date Reviewed: 04/09/2025 Reviewed by: Ayana Zavala APRN.MOTOR ROOM CONTROLLER - Fully Assessed Reason for Visit: Patient Question [0085] Cmt: Glucose readings Prescriptions as of 05/03/2025 - insulin glargine (LANTUS SOLOSTAR U-100 INSULIN) 100 unit/mL (3 mL) Inject 12 Units subcutaneously daily at bedtime. - insulin aspart U-100 (NOVOLOG FLEXPEN U-100 INSULIN) 100 unit/mL (3 mL) pen Inject 4 units with meals plus sliding scale (Max daily dose of 30 units daily) - Insulin Burnside, Disposable, (BD ULTRA-FINE MARICHUY PEN NEEDLE) 32 [...] Inject 1 mg subcutaneously as needed. - nqpmcw-cwjezuoi-zewxsid (CREON) 24,000-76,000 -120,000 unit cpDR Take 2 [...] Encounter Status:Closed by MIGUEL A GOODWIN on 05/03/25NoWright-Patterson Medical CenterCNPNTelephone (ENDOLN) MANOLO ROCHE ([id number]) 1935 M Date Time Provider Department 05/03/25 AYANA ZAVALA During your visit today, we recorded the following information about you: Miguel A Goodwin MA 05/03/2025 3:12 PM Signed Received a fax from [facility] of patients current medication list as well as glucose readings. Ayana reviewed then requested to send for scan. Allergies As of Date: 05/03/2025 (No Known Allergies) Date Reviewed: 05/03/2025 Reviewed by: Ayana Zavala APRN.MOTOR ROOM CONTROLLER - Fully Assessed Reason for Visit: Patient Update [1234] Cmt: [facility]- Medication update and glucose readings Prescriptions as of 05/03/2025 - insulin glargine (LANTUS SOLOSTAR U-100 INSULIN) 100 unit/mL (3 mL) Inject 15 Units subcutaneously daily at bedtime. - insulin aspart U-100 (NOVOLOG FLEXPEN U-100 INSULIN) 100 unit/mL (3 mL) pen Inject 4 units with meals plus sliding scale (Max daily dose of 30 units daily) - Insulin Burnside, Disposable, (BD ULTRA-FINE MARICHUY PEN NEEDLE) 32 gauge x 5/32 Use four times daily with insulin pens - Blood-Glucose Sensor (V-cube [place] G7 SENSOR) delfin Change every 10 days. [...] Inject 1 mg subcutaneously as needed. - xonnuc-zkgqhgxq-cgvbons (CREON) 24,000-76,000 -120,000 unit cpDR Take 2 [...] Encounter Status:Closed by MIGUEL A GOODWIN on 05/03/25[facility] HospitalAmbulatory Visit Summaryon 97-76-7293Mymuffqknh Visit SummaryAmbulatory Visit Summary MANOLO ROCHE :1935 [...] When: Comments: Pending Cysto/bladder function testing Where: [address] [place] [address]- Medications What How Much When Instructions [...] signed up for this yet, please contact [employer] at [phone] to get signed up today. Language Information Language assistance services are available as needed. [facility]ronUrology Office/Clinic Noteon [id number] Office/Clinic NoteUrology Office/Clinic Note Chief Complaint new patient HPI Staff 89 year old male [facility] F/U and Urology consult 04/10/25 for [...] is a 89 yo M here for [facility] f/u for urinary retention. 1. Urinary retention, (R33.9: Retention of urine, unspecified)Incomplete bladder emptying Seen at [facility] 04/10/25 for urinary retention of 700 [...] He was seen in consultation at the [facility] for significant urinary retention of about 700 [...] Information JULIO OGLESBY, Tristan Interiano, URL [facility] [address] [place] [address]- Additional Instructions: Pending Cysto/bladder function testing Patient Education I, Collette Phillips, personally scribed for Dr. Melchor on 04/25/2025 15:13:38. . Documentation recorded by the scribe, Collette Phillips, accurately reflects the services(s) I performed and decisions made by me. Authenticated by Dr. Melchor on 04/25/2025 15:15:06. Portions of this record may have been created with voice recognition artificial intelligence software, specifically Ioxus, WallCompass and or CareHubs. Substitutions may have occurred due to the [...] pacemaker, Cataract extraction, H/O (more content not included)...[facility] - AkronComment on above:Result Comment: Electronically Signed By: Quyen Melchor\.br\Date and Time Signed: 04/25/25 15:24 EDTCNPHaley 23-70-5865KOABYqjfrqsex (ENDOLN) MANOLO ROCHE ([id number]) 1935 M Date Time Provider Department 04/23/25 [...] enzyme or marker Patient is currently at [facility] [phone] Spouse states they are not controlling his BS well. Advised Provider doesn't have charge of care as he is admitted to [facility] and she must reach out to [...] Signed Attempted to reach staff at [facility]. Was transferred but then no answer. Will try again later. Erick Peguero LPN 04/24/2025 3:59 PM Signed Spoke to Yvan FRAZIER, He will fax over requested blood sugar readings and current med list to our office. 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 - insulin aspart U-100 (NOVOLOG FLEXPEN U-100 INSULIN) 100 unit/mL (3 mL) pen Inject 4 units with meals plus sliding scale (Max daily dose of 30 units daily) - Insulin Burnside, Disposable, (BD ULTRA-FINE MARICHUY PEN NEEDLE) 32 gauge x 5/32 Use four times daily with insulin pens - Blood-Glucose Sensor (V-cube [place] G7 SENSOR) delfin Change every 10 days. [...] Inject 1 mg subcutaneously as needed. - koasvr-ibxleidt-zdmeakz (CREON) 24,000-76,000 -120,000 unit cpDR Take 2 [...] *06/23/2018 Encounter Status:Closed by AYANA ZAVALA on 04/24/25NormalCUniversity [facility]als [facility] peptide SerPl-mCncon 04-09-2025 peptide [Mass/Vol]<0.1Low1.1-4.4 [facility] on above:Order Comment: Specimen Type: BLOOD SPECIMENOrdering Facility: [facility] Address:[address] [place], [place] [id number] By: #### 1986-9 ####[facility] LABCLIA [id number] [address] [id number], [place] [address] VINCENT HOSPITALCC GLUCOSE P FAST SERPL-SAINT JOHN VIANNEY HOSPITALon 65-84-4247Gmdifbc [Mass/Vol]751 mg/dLHigh 74 - 99 mg/dLHarry S. Truman Memorial Veterans' HospitalComment on above:[place] Diabetes Association guidelines state that a diabetes mellitus diagnosis is preliminarily made when the fasting plasma glucose meets or exceeds 126 mg/dL. In the absence of unequivocal hyperglycemia, results should be confirmed with repeat testing. Patients are at increased risk for diabetes mellitus (prediabetes) when the fasting glucose is 100 to 125 mg/dL.Interpretation and review of laboratory resultsAbnormalHarry S. Truman Memorial Veterans' HospitalSpecimen Type: BLOOD SPECIMEN Ordering Facility: [facility] Address: [address] [place] [id number] Original Ordering Provider: AYANA LAKHANI [facility] [id number] Visit (ENDOLN) KALEYMANOLO ([id number]) 1935 M Date Time Provider Department 04/09/25 2:00 PM AYANA ZAVALA ENDOLN During your visit today, we recorded the following information about you: Pulse Blood pressure Weight 60/minute 162/86 62.9 kg Ayana Zavala APRN.MOTOR ROOM CONTROLLER 04/10/2025 8:17 AM Addendum Endocrinology Follow Up History of Present Illness Manolo Roche is a 89 year old male presents today for follow up of DM Type 1. Here with . At [facility] 10/2024, basal rate was reduced overnight. [...] or vomiting. 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 Labwork from this AM is pending. recalls he is not bolusing consistently and will ignore his Omnipod alarms at times. Patient recalls being consistent with his Novolog and Lantus injections when he was on these. 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 Per patient, this was done due to [...] OTHER Medication Dosage Pharm Subclass Blood-Glucose Sensor (V-cube [place] G7 SENSOR) delfin Change every 10 days. [...] to treat Hypoglycemia (Hyperg (more content not included)...NormalDetwiler Memorial HospitalGAD65 Ab Ser-aCncon 04-09-2025 Glutamate decarboxylase 65 Ab Qn (S)<5.0Normal<=5.0[facility] Hospital Comment on above:Order Comment: Specimen Type: BLOOD SPECIMENOrdering Facility: [facility] Address:[address] [place], [place] [address]Fmqcha Comment: Anti-glutamic acid decarboxylase antibody (GAD65) test [...] diseases. Clinical correlation is required.Performed By: #### 07648-8 ####[facility] [id number] [place] [address] [place] OF AMERICAGlucose p fast SerPl-ncon 33-30-6966Womvngn post fast [Mass/Vol]751 mg/tUTqpr46-81GdbbgruduDetwiler Memorial HospitalComment on above:Order Comment: Specimen Type: BLOOD SPECIMENOrdering Facility: [facility] Address:[address] [place], [place] [address]Result Comment: [place] Diabetes Association guidelines state that a diabetes mellitus diagnosis is preliminarily made when the fasting plasma glucose meets or exceeds 126 mg/dL. In the absence of unequivocal hyperglycemia, results should be confirmed with repeat testing. Patients are at increasedrisk for diabetes mellitus (prediabetes) when the fasting glucose is 100 to 125 mg/dL.Performed By: #### 1558-6 ####[facility] [id number] [place] [address] [place] OF AMERICAGlutamate decarboxylase 65 Ab Qn (S)on 05-68-1559EOWKVTZA ACID DECARBOXYLAS AB QUALITATIVENegativeNormalNegativeDetwiler Memorial Hospital Comment on above:Order Comment: Specimen Type: BLOOD SPECIMENOrdering Facility: [facility] Address:[address] [place] [address] Performed By: #### 18765-2 ####[facility] [id number] [address] [place] HbA1c (Bld)on 76-63-5813Kkzocqk glucose Estimated from glycated hemoglobin (Bld) [Mass/Vol]321 mg/dLNormalCMercy Health on above:Order Comment: Specimen Type: BLOOD SPECIMENOrdering Facility: [facility] Address:[address] [place], [place] [address]Result Comment: eAG: (Estimated average glucose) is a calculated value from HgbA1c and is representa tive of the average blood glucose level in the last 2-3 month period.Performed By: #### 29879-4 ####[facility] LABIA [id number] [place] [address] [place] YZVZKMXGhL7m (Bld) [Mass fraction]12.8 %High4.3-5.6ClevelGranville Medical CenterComment on above:Order Comment: Specimen Type: BLOOD SPECIMENOrdering Facility: [facility] Address:[address] [place], [place] [address]Result Comment: [place] Diabetes Association guidelines indicate that patients with HgbA1c in the range 5.7-6.4% are at increased risk for development of diabetes, and intervention by lifestyle modification may be beneficial. HgbA1c greater or equal to 6.5% is considered diagnostic of diabetes.Performed By: #### 54597-1 ####[facility] LABIA [id number] [place] [address] VINCENT HOSPITALALL PRO BNPon 89-47-9606FC PRO B TYPE NATRIURETIC [id number] pg/mLCritically highNINF - 1800.0 pg/mLNOMS HealthcareComment on above: RESULTS CALLED TO JOEY GARCES CMP (CMP) (FOR REMOTE [facility] USE)on 84-48-1633Ejhgjhm [Mass/Vol]3.2 g/dLLow3.4 - 5.0 g/dLNOMS HealthcareALBUMIN GLOBULIN [...] [Vol rate/Area]30Low>=60 mL/min/1.73m 2NOMS HealthcareGlobulin (S) [Mass/Vol]3.7 g/dLNOAK HealthcareGlucose [Mass/Vol]581 mg/dLCritically high74 - 106 mg/dLLAKEVIEW HOSPITAL HealthcareComment on above:RESULTS CALLED TO ZENAIDA SANDOVAL, RN Potassium [Moles/Vol]4.7 mmol/L3.5 - 5.1 mmol/LNOMS HealthcareProtein [Mass/Vol] 6.9 g/dL6.4 - 8.2 g/dLNOAK HealthcareSodium [Moles/Vol]129 mmol/SVfp944 - 145 mmol/LNOMS HealthcareTBH EGFR-NON AF WUOFQSUA22Edf>=60 mL/min/1.73m 2NOMS HealthcareUrea nitrogen [Mass/Vol]73 mg/dLHigh7.0 - 18.0 mg/dLNOAK Healthcare Urea nitrogen/Creatinine [Mass ratio]29.4 mg/mgNOAK HealthcareNo Panel Informationon 40-75-5559Zytlnzkylrdruj and review of laboratory resultsAbnoGeisinger Community Medical CenterCLINISMoccasin Bend Mental Health InstituteGLUTAMIC AC DECARBOXYLASE ABOrdered By: Erick Peguero on 26-80-0906Ystzosjre decarboxylase 65 Ab Qn (S)-5.0AbnoProtestant Deaconess HospitalR HEMOGLOBIN A1Con 40-26-9009Qpjxadb [Mass/Vol]269 mg/dLNOBarnes-Jewish West County HospitalBnekaclicoNzZ5q (Bld) [Mass fraction]11 %High4.5 - 6.2 %Harry S. Truman Memorial Veterans' HospitalComment on above:ADA RECOMMENDED LIMIT 4.0 - 6.0 ADA THERAPEUTIC TARGET < 7.0 ACTION SUGGESTED > 7.0 Interpretation and review of laboratory resultsAbnormTitusville Area HospitalCLINISYNSelf Regional HealthcareNo Panel Informationon 14-71-8072Rjppnujuerwpqh and review of laboratory resultsAbnormAscension Calumet HospitalTB GLUCOSE BLOODon 51-49-1833Twosqxg [Mass/Vol]141 mg/gZLgfh61 - 106 mg/dLUnion County General Hospital Issa 22-81-6068PWHCKhjucqjff (ENDOLN) MANOLO ROCHE ([id number]) 1935 M Date Time Provider Department 02/05/25 [...] Buffy Roche MA 02/15/2025 10:09 AM Signed [employer] Part B Insulin RX form completed and faxed Confirmation received Allergies As of Date: 02/05/2025 (No Known Allergies) Date Reviewed: 10/26/2024 Reviewed by: Ayana Zavala APRN.CNP - Fully Assessed Reason for Visit: [employer] form [Other] Primary Visit Diagnosis: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 - muvnuc-fdycuxal-wsfklqv (CREON) 24,000-76,000 -120,000 unit cpDR Take 2 [...] *06/23/2018 Encounter Status:Closed by AYANA ZAVALA on 02/05/25NoTriHealth Good [facility]ar[facility] Hospital ANGIOGRAM CHESTon 45-25-6852IC ANGIOGRAM CHESTCLINICAL HISTORY: Chest pain. Technique: Spiral [...] ELECTRONICALLY SIGNED BY: Howard Mae MDNormalNot AvailableCreatinineon 73-06-9051Sjfuczeebx [Mass/Vol]1.21 mg/dL0.76 - 1.27 mg/dLHarry S. Truman Memorial Veterans' Hospital Creatinine [Mass/Vol]on 48-16-0560OHE/1.73 sq M.predicted among non-blacks MDRD (S/P/Bld) [Vol rate/Area]58 mL/min/{1.73_m2}Low59 - PINF mL/min/1.73Harry S. Truman Memorial Veterans' HospitalInterpretation and review of laboratory resultsWilmington Hospital Performed at: - LabSaint [facility] [address], [address], [place], [place] [address] Airplane Cover Maker: Hilario Chew MD, Phone: [phone] Cortland Medical CenterXR CHEST 2 VIEWSon 40-54-8922ZG CHEST 2 VIEWSTITLE OF EXAM: XR CHEST [...] the interpreting radiologist.NormalNot AvailableXR Chest 2 Viewson 27-18-8826OPLJA OF EXAM: XR CHEST 2 VIEWS REASON [...] signed in approved by the interpreting radiologist. [facility] HealthcareRadiology Study observation (narrative)[facility] Veterans' HospitalXR Chest 2 ViewsOrdered By: Yuval Gill on 40-83-1540YDDNHarry S. Truman Memorial Veterans' Hospital Work Phone: CNPNon 98-87-2877HVLEQtofdmsfx (ENDOLN) MANOLO ROCHE ([id number]) 1935 M Date Time Provider Department 12/19/24 AYANA ZAVALA ENDOLN During your visit today, we recorded the following information about you: Sharonda Felipe 12/19/2024 12:07 PM Signed Pt needs refill on sensors. Do not see on current med list. Pt uses [facility] pharmacy in [place]. Insurance is not going to pay for this until 01/03. Spouse is requesting to speak to a nurse about getting an alternative until then. Please review and advise. Patient has been identified by name and birthdate. Duration of symptoms: N/A Person calling: self Call patient at: on cell [phone] (cell) Was an appointment scheduled: No Closing statement: Results or non-symptom based questions: Thank you for calling [facility], your call will be returned within the next business day. Ayana Hess APRN.KALANI 12/25/2024 8:04 AM Addendum Rx sent however patient obtains typically from [facility], are they still having issues obtaining from there? Erick Peguero LPN 12/27/2024 11:08 AM Signed Spoke to pharmacy, the sensors are ready for mixing picker tender. Relayed message to patient's . She states that they do usually receive sensors from [facility] but they are having issues receiving them. The patient uses more that prescribed and paid for by insurance because they fall out. She will mixing picker tender those at pharmacy , if there are [...] PUMP (MAX DAILY 75 UNITS) - Insulin Burnside, Disposable, (BD ULTRA-FINE MARICHUY PEN NEEDLE) 32 [...] Inject 1 mg subcutaneously as needed. - jdeebd-qohoxdua-ightsss (CREON) 24,000-76,000 -120,000 unit cpDR Take 2 [...] ordered this encounter Disp Refills Start End V-cube [place] G7 SENSOR DEVICE 3 ea* 0 12/25/2024 Sig: Change every 10 days. Encounter Status:Closed by AYANA ZAVALA on 12/25/24[facility] [id number] Visit (ENDOLN) MANOLO ROCHE ([id number]) 1935 M Date Time Provider Department 10/26/24 12:15 PM AYANA ZAVALA During your visit today, we recorded the following information about you: Pulse Blood pressure Weight Height 60/minute 163/80 61 kg 1.778 m Ayana Zavala APRN.MOTOR ROOM CONTROLLER 10/26/2024 1:11 PM Signed Endocrinology Follow Up History of Present Illness Manolo Roche is a 89 year old male presents today for follow up of DM Type 1. Here with . 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 Per patient, this was done due to [...] mg subcutaneously as n (more content not included)...NormalDetwiler Memorial HospitalHEMOGLOBIN A1C (POC)on 53-57-2639MmG1f (Bld) [Mass fraction]12 % Abnormal4.3 - 5.6 %As[facility] County Medical CenterComment on above:Location:[facility], [address] [place] [address], [facility] Point of care (POC) Hemoglobin A1c (HGBA1C) [...] specific diabetes management situations: The POC device business analyst project manager provides a normal range of 4.2% to 6.5% for the HGBA1C POC test. However, the [place] Diabetes Association guidelines indicate that patients with [...] cell lifespan. Interpretation and review of laboratory resultsAbnormalClevelHugh Chatham Memorial Hospital ClinicALL BASIC METABOLIC PANELon 43-46-6796Qeday gap [Moles/Vol]12.4 mmol/LNOMS HealthcareCalcium [Mass/Vol]8.2 mg/dLLow8.5 - 10.1 mg/dLNOMS HealthcareChloride [Moles/Vol]101 mmol/L98 - 107 mmol/LNOMS HealthcareCO2 [Moles/Vol]27.9 mmol/L 21.0 - 32.0 mmol/LNOMS HealthcareCreatinine [Mass/Vol]1.41 mg/dLHigh0.70 - 1.30 mg/dLNOMS HealthcareGFR/1.73 sq M.predicted CKD-EPI (S/P/Bld) [Vol rate/Area]58 Low>=60 mL/min/1.73m 2NOMS HealthcareGlucose [Mass/Vol]355 mg/uXKcxe43 - 106 mg/dLNOMS HealthcarePotassium [Moles/Vol]4.3 mmol/L3.5 - 5.1 mmol/LNOMS HealthcareSodium [Moles/Vol]137 mmol/L136 - 145 mmol/LNOMS HealthcareTBH EGFR- NON AF YOOELAHI16Bzp>=60 mL/min/1.73m 2NOMS HealthcareUrea nitrogen [Mass/Vol]31 mg/dLHigh7.0 - 18.0 mg/dLNOMS HealthcareUrea nitrogen/Creatinine [Mass ratio]22 mg/mgNOMS HealthcareALL PRO BNPon 88-62-8749XE PRO B TYPE NATRIURETIC EXRJ0488 pg/mLCritically highNINF - 1800.0 pg/mLNOMS HealthcareComment on above:RESULTS CALLED TO Zenaida Sandoval RNNo Panel Informationon 71-72-2004Teuodlwvctjkjq and review of laboratory resultsAbnormalNOMS HealthcareCLINISYNCNSTROUD REGIONAL [facility] STROU[facility] HealthcareCNPN on 80-41-0368EAOXKwoikokwl (ELIZABETHBHT) MANOLO ROCHE ([id number]) 1935 M Date Time Provider Department 10/13/24 [...] Date Reviewed: 09/25/2024 Reviewed by: Ayana Zavala APRN.MOTOR ROOM CONTROLLER - Fully Assessed Reason for Visit: Omnipod/Dexcom [...] crtg Change every 72 hours. - Insulin Burnside, Disposable, (BD ULTRA-FINE MARICHUY PEN NEEDLE) 32 [...] Inject 1 mg subcutaneously as needed. - piaspl-axariklz-ueqinoz (CREON) 24,000-76,000 -120,000 unit cpDR Take 2 [...] *06/23/2018 Encounter Status:Closed by GAYE MATA on 10/13/24NoClermont County Hospital 36-78-1611OCCSObbqqxbjd (ENDOLN) MANOLO ROCHE ([id number]) 1935 M Date Time Provider Department 10/11/24 [...] notes attached Questions Completed Waiting for determination [facility] Prior Electrical And Instrument Technician Endocrinology and Metabolism [place] Ruchi Rhoades 10/11/2024 11:37 AM Signed Allergies As of Date: 10/11/2024 (No Known Allergies) Date Reviewed: 09/25/2024 Reviewed by: Ayana Zavala APRN.MOTOR ROOM CONTROLLER - Fully Assessed Reason for Visit: Insurance Authorization [2033] Cmt: insulin pump cart,auto,BT,G6/7 (OMNIPOD 5 G6-G7 [...] crtg Change every 72 hours. - Insulin Burnside, Disposable, (BD ULTRA-FINE MARICHUY PEN NEEDLE) 32 [...] Inject 1 mg subcutaneously as needed. - hfvgih-hewnkxlk-ygwprix (CREON) 24,000-76,000 -120,000 unit cpDR Take 2 [...] *06/23/2018 Encounter Status:Closed by AYANA ZAVALA on 10/11/24[facility] HospitalCNPNTelephone (ELIZABETHBHT) MANOLO ROCHE ([id number]) 1935 M Date Time Provider Department 10/11/24 GAYE MATA During your visit today, we recorded the following information about you: Gaye Mata, RN 10/11/2024 4:23 PM Signed Patient's sent message patient had received Dexcom G7 CGM sensors from [employer] last night. Patient applied Omnipod 6 [...] Date Reviewed: 09/25/2024 Reviewed by: Ayana Zavala APRN.MOTOR ROOM CONTROLLER - Fully Assessed Reason for Visit: Omnipod [...] crtg Change every 72 hours. - Insulin Burnside, Disposable, (BD ULTRA-FINE MARICHUY PEN NEEDLE) 32 [...] Inject 1 mg subcutaneously as needed. - urrepn-adlahbxe-kmpbydj (CREON) 24,000-76,000 -120,000 unit cpDR Take 2 [...] *06/23/2018 Encounter Status:Closed by GAYE MATA on 10/11/24[facility] HospitalCNPNon 61-67-8384ARQDPjdrekcrm (DEMBHT) KALEYGIVOANIMANOLO ([id number]) 1935 M Date Time Provider Department 10/10/24 GAYE MATA During your visit today, we recorded the following information about you: Gaye Mata, RN 10/10/2024 9:36 AM Signed Called and spoke with patient's . Patient called educator last week stating he has been having issues getting his Dexcom G7 CGM sensors from his DME company, [email or web address]. Patient states he called them a few [...] LPN 10/10/2024 3:40 PM Signed Spoke to [employer] Rep, he reported that the Dexcom supplies should be delivered today vis [employer]. Tracking nbr [id number]. According to his notes it was out for delivery at 5:48 am 10/10/2024. I attempted to reach patient at both nbrs listed, no answer. VM left with update. I will send a [employer] message as well. Allergies As of Date: 10/10/2024 (No Known Allergies) Date Reviewed: 09/25/2024 Reviewed by: Ayana Zavala APRN.MOTOR ROOM CONTROLLER - Fully Assessed Reason for Visit: Dexcom [...] crtg Change every 72 hours. - Insulin Burnside, Disposable, (BD ULTRA-FINE MARICHUY PEN NEEDLE) 32 [...] Inject 1 mg subcutaneously as needed. - flzpei-affidklf-frqsqmu (CREON) 24,000-76,000 -120,000 unit cpDR Take 2 [...] *06/23/2018 Encounter Status:Closed by GAYE MATA on 10/10/24[facility] 05-73-4460KSDZRirqgjvdz (ELIZABETHLeeann) MANOLO ROCHE ([id number]) 1935 M Date Time Provider Department 10/04/24 GAYE MATA During your visit today, we recorded the following information about you: Allergies As of Date: 10/04/2024 (No Known Allergies) Date Reviewed: 09/25/2024 Reviewed by: Ayana Zavala APRN.MOTOR ROOM CONTROLLER - Fully Assessed Reason for Visit: Omnipod [...] 5,) crtg Change every 72 hours. - ilpeap-vffmwzuw-hobbhde (CREON) 24,000-76,000 -120,000 unit cpDR Take 2 [...] *06/23/2018 Encounter Status:Closed by GAYE MATA on 10/04/24NoWright-Patterson Medical CenterGuera (LIANNA) MANOLO ROCHE ([id number]) 1935 M Date Time Provider Department 10/04/24 GAYE MATA During your visit today, we recorded the following information about you: Gaye Mata, KARIN 10/04/2024 4:41 PM Signed Patent called stating that he is out of Edtrips G7 CGM sensors and has been having difficulty getting the shipment from [employer], his DME supplier. Patient states he made 3 calls to them this week, one including a waterproofing supervisor at [facility], who promised that the shipment was sent and would be received in a day or two. Advised patient to contact his provider's office to see if they are able to help as they submitted all the original paperwork to [facility] back in August and I am not sure if they are waiting on something from the office. Patient was also told to see if the provider's office had Dexcom G7 sensor samples to provide until his shipment arrives so he does not have to drive out to [facility]. Patient verbalized understanding. Allergies As of Date: 10/04/2024 (No Known Allergies) Date Reviewed: 09/25/2024 Reviewed by: Ayana Zavala APRN.MOTOR ROOM CONTROLLER - Fully Assessed Reason for Visit: Dexcom [...] Inject 1 mg subcutaneously as needed. - htlbju-xeqwooms-wvntbgi (CREON) 24,000-76,000 -120,000 unit cpDR Take 2 [...] *06/23/2018 Encounter Status:Closed by GAYE MATA on 10/04/24[facility] [id number] (DEMT) MANOLO ROCHE ([id number]) 1935 M Date Time Provider Department 09/27/24 GAYE MATA [facility] During your visit today, we recorded the following information about you: Allergies As of Date: 09/27/2024 (No Known Allergies) Date Reviewed: 09/25/2024 Reviewed by: Ayana Zavala APRN.MOTOR ROOM CONTROLLER - Fully Assessed Reason for Visit: Omnipod [...] 5,) crtg Change every 72 hours. - mmrnuh-byaqckbg-qhnkqml (CREON) 24,000-76,000 -120,000 unit cpDR Take 2 [...] *06/23/2018 Encounter Status:Closed by GAYE MATA on 09/27/24NoFostoria City HospitalLinwoodphone ([facility]ALT) MANOLO ROCHE ([id number]) 1935 M Date Time Provider Department 09/27/24 GAYE MATA During your visit today, we recorded the following information about you: Gaye Mata, KARIN 09/27/2024 1:23 PM Signed In error Allergies As of Date: 09/27/2024 (No Known Allergies) Date Reviewed: 09/25/2024 Reviewed by: Ayana Zavala APRN.MOTOR ROOM CONTROLLER - Fully Assessed Prescriptions as of 09/27/2024 [...] 5,) crtg Change every 72 hours. - gghkzd-hxdyxgve-jxlgapu (CREON) 24,000-76,000 -120,000 unit cpDR Take 2 [...] *06/23/2018 Encounter Status:Closed by GAYE MATA on 09/27/24[facility] [id number] (ENDOLN) MANOLO ROCHE ([id number]) 1935 M Date Time Provider Department 09/26/24 AYANA ZAVALA ENDOLN During your visit today, we recorded the following information about you: Ayana Zavala APRN.MOTOR ROOM CONTROLLER 09/26/2024 7:40 AM Signed Received page regarding [...] below Stated understanding will take pt to [facility] Advised to f/u with endo upon [...] HIPAA in in basics in [facility] does attend ov ( see 09-25-2024) Will document this in [facility]/ basics Erick Peguero LPN 09/26/2024 8:18 AM Signed Left message on machine to call the office. Ayana Zavala APRN.CNP 09/26/2024 11:55 AM Addendum Provided report to [facility]. Informed of BG of 614 mg/dL [...] It appears patient has been discharged from [facility] around 10:00 AM. His blood sugar has greatly improved and is at/near range per pump report today (see below). Please reach out to patient/ to see how patient is doing. I will also have Gaye (pump national sales trainer) reach out to them to review [...] LPN 09/27/2024 5:50 PM Signed Please see Guidekickhart message 09/27/24 Allergies As of Date: 09/26/2024 (No Known Allergies) Date Reviewed: 09/25/2024 Reviewed by: Ayana Zavala APRN.MOTOR ROOM CONTROLLER - Fully Assessed Prescriptions as of 09/27/2024 [...] 5,) crtg Change every 72 hours. - jjwhnk-fqczcybk-ippgojn (CREON) 24,000-76,000 -120,000 unit cpDR Take 2 [...] (intraductal papillary mucinous (more content not included)...Normal [facility] HospitalALBUMIN/CREATININE RATIO, URINEon 77-87-1595Tdcnilv DL <= 20 mg/L (U) [Mass/Vol]20.2 mg/LNormalLouis [facility] on above:Order Comment: Specimen Type: URINE SPECIMENOrdering Facility: [facility] Address:[address] [place], [place] [address]Performed By: #### UACR ####[facility] LABIA [id number] [address] [place] OF [facility] HOSPITALAlbumin/Creatinine (U) [Mass ratio]106 mg/gHigh<30[facility] on above:Order Comment: Specimen Type: URINE SPECIMENOrdering Facility: [facility] Address:[address] [place], [place] [address]Result Comment: Adult Male and Female Nephrotic Criteria: <30 mg/g is considered normal to mildly increased 30-300 mg/g is considered moderately increased >300 mg/g is considered severely increased KDIGO. (2013). KDIGO 2012 Clinical Practice Guideline for the Evaluation and Management of Chronic Kidney Disease. Official Journal of the International Society of Nephrology, 3(1), 1-150.Performed By: #### UACR ####[facility] LABIA [id number] [place] [id number] [place] OF AMERICACreatinine (U) [Mass/Vol]19.1 mg/dLLow20.0-300.0 [facility] on above:Order Comment: Specimen Type: URINE SPECIMENOrdering Facility: [facility] Address:[address] [place], [place] [address]Performed By: #### UACR ####[facility] LABCLIA [id number] [address] [address] [place] STATES OF AMERICACNOVon 33-37-7627ZEVOPtbilp Visit (ENDOLN) MANOLO ROCHE ([id number]) 1935 M Date Time Provider Department 09/25/24 2:30 PM AYANA ZAVALA During your visit today, we recorded the following information about you: Pulse Blood pressure Weight 60/minute 162/93 63.1 kg Ayana Zavala, AMADA.MOTOR ROOM CONTROLLER 09/26/2024 11:42 AM Addendum Endocrinology Follow Up [...] in the meantime, but was able to mixing picker tender Novolog on 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 He did not [...] pancreatectomy in September 2019 at [facility] in [place]. Per patient, this was done due to [...] by mouth once daily. Intestinal Chayo Modifiers fpzdwo-sktaxkja-zumqlrr (CREON) 24,000-76,000 -120,000 unit cpDR Take 2 capsules by mouth three times daily with meals. and 1 with snacks (8/day) Digestive Enzyme Mixtures lutein-zeaxanthin 25-5 mg cap Take by mouth once daily. Alternative Therapy - Antioxidant Omeprazole Magnesium 20 mg tablet Take 20 mg by mouth. Gastric Acid Secretion Communications Specialist - Proton Pump Inhibitors (PPIs) PARoxetine (PAXIL) 40 mg tablet Take 40 mg by mouth every morning. Antidepressant - Selective Serotonin Reuptake Inhibitors (SSRIs) tamsulosin (more content not included)...NormalDetwiler Memorial Hospital Comprehensive metabolic 2000 panelon 97-45-0908Xqlecit [Mass/Vol]3.9 g/dLNormal 3.9-4.9CMercy Health on above:Order Comment: Specimen Type: BLOOD SPECIMENOrdering Facility: [facility] Address:[address] [place], [place] [address]Performed By: #### 98607-4, LIPNF ####[facility] LABCLIA [id number] [place] [address] [place] OF AMERICAALP [Catalytic activity/Vol]156 U/TMqlf16-267IynckhfhvLouis Stokes [facility] on above:Order Comment: Specimen Type: BLOOD SPECIMENOrdering Facility: [facility] Address:[address] [place], [place] [address]Performed By: #### 16542-5, LIPNF ####[facility] LABCLIA [id number] [place] [address] [place] AMERICAALT [Catalytic activity/Vol]43 U/EHyfmhd87-63IlmledpofLouis Stokes [facility] on above:Order Comment: Specimen Type: BLOOD SPECIMENOrdering Facility: [facility] Address:[address] [place], [place] [address]Performed By: #### 52578-4, LIPNF ####[facility] LABCLIA [id number] [address] [place] [facility] [place] Anion gap [Moles/Vol]17 mmol/LHigh8-15[facility] on above:Order Comment: Specimen Type: BLOOD SPECIMENOrdering Facility: [facility] Address:[address] [place], [place] [address]Performed By: #### 30470-1, LIPNF ####[facility] LABCLIA [id number] [place] [address] [place] AMERICAAST [Catalytic activity/Vol]76 U/ZSnqc29-68GohjvivvlLouis Stokes [facility] on above:Order Comment: Specimen Type: BLOOD SPECIMENOrdering Facility: [facility] Address:[address] [place], [place] [address]Performed By: #### 53651- 8, LIPNF ####[facility] LABCLIA [id number] [place] [address] [place] AMERICABilirubin [Mass/Vol]0.5 mg/dLNormal0.2-1.3CMercy Health on above:Order Comment: Specimen Type: BLOOD SPECIMENOrdering Facility: [facility] Address:[address] [place], [place] [address]Performed By: #### 78473-4, LIPNF ####[facility] LABIA [id number] [place] [address] [place] AMERICACalcium [Mass/Vol]9.3 mg/dLNormal 8.5-10.2CMercy Health on above:Order Comment: Specimen Type: BLOOD SPECIMENOrdering Facility: [facility] Address:[address] [place], [place] [address]Performed By: #### 38805-8, LIPNF ####[facility] LABCLIA [id number] [place] [address] [place] AMERICAChloride [Moles/Vol]86 mmol/DIqb54-805TsmsrklmlLouis Stokes Cleveland [facility] on above:Order Comment: Specimen Type: BLOOD SPECIMENOrdering Facility: [facility] Address:[address] [place], [place] [address]Performed By: #### 08382-3, LIPNF ####[facility] LABIA [id number] [place] [address] [place] OF AMERICACO2 [Moles/Vol]24 mmol/TRowzen88-05ZnhhnyeyzDetwiler Memorial Hospital Comment on above:Order Comment: Specimen Type: BLOOD SPECIMENOrdering Facility: [facility] Address:[address] [place] [address] Performed By: #### 32650-3, LIPNF ####[facility] LABIA [id number] [address] STATES [place] Creatinine [Mass/Vol]1.09 mg/dLNormal0.73-1.22[facility] on above:Order Comment: Specimen Type: BLOOD SPECIMENOrdering Facility: [facility] Address:[address] [place] [address] Performed By: #### 18973-5, LIPNF ####[facility] [id number] [address] Creatinine and Glomerular filtration rate.predicted panel (S/P/Bld)66 mL/min/1.73m???Normal>=60[facility] on above:Order Comment: Specimen Type: BLOOD SPECIMENOrdering Facility: [facility] Address:[address] [place], [place] [address]Result Comment: Estimated Glomerular Filtration Rate (eGFR) is [...] not accurately reflect actual GFR.Performed By: #### 93100-2, LIPNF ####[facility] LABCLIA [id number] [place] [address] [place] AMERICAGlucose [Mass/Vol]614 mg/dLHigh 74-99[facility] on above:Order Comment: Specimen Type: BLOOD SPECIMENOrdering Facility: [facility] Address:[address] [place], [place] [address]Result Comment: The [place] Diabetes Association (ADA) provides guidance for cutoff [...] Standards of Medical Care in Diabetes 2016, [place] Diabetes Association. Diabetes Care. 2016.39(Suppl 1).Performed By: #### 08989-0, LIPNF ####[facility] LABCLIA [id number] [place] [address] [place] AMERICAPotassium [Moles/Vol]5.2 mmol/L High3.7-5.1CMercy Health on above:Order Comment: Specimen Type: BLOOD SPECIMENOrdering Facility: [facility] Address:[address] [place], [place] [address]Performed By: #### 86930-8, LIPNF ####[facility] LABIA [id number] [place] [address] [place] AMERICAProtein [Mass/Vol]7.1 g/dLNormal6.3-8.0[facility] on above:Order Comment: Specimen Type: BLOOD SPECIMENOrdering Facility: [facility] Address:[address] [place], [place] [address]Performed By: #### 70004-6, LIPNF ####[facility] LABCLIA [id number] [address] [address] [place] OF AMERICASodium [Moles/Vol]127 mmol/PTxh909-984DlclkzlfdLouis Stokes [facility] on above:Order Comment: Specimen Type: BLOOD SPECIMENOrdering Facility: [facility] Address:[address] [place], [place] [address]Performed By: #### 07240-3, LIPNF ####[facility] LABCLIA [id number] [place] [address] [place] Urea nitrogen [Mass/Vol]37 mg/dLHigh9-24[facility] on above:Order Comment: Specimen Type: BLOOD SPECIMENOrdering Facility: [facility] Address:[address] [place], [place] [address]Performed By: #### 20353-1, LIPNF ####[facility] LABIA [id number] [address] OF AMERICALIPID PANEL, NONFASTINGon 26-10-7613Uudtmofszuo [Mass/Vol]144 mg/dLNormal<200[facility] on above:Order Comment: Specimen Type: BLOOD SPECIMENOrdering Facility: [facility] Address:[address] [place], [place] [address]Result Comment: <200 mg/dL, Desirable 200-239 mg/dL, Borderline high >239 mg/dL, HighPerformed By: #### 08984-3, LIPNF ####[facility] LABIA [id number] [address] [place] [address] [place] STATES OF AMERICAHDL CHOLESTEROL, NF51 mg/dLNormal>39[facility] Comment on above:Order Comment: Specimen Type: BLOOD SPECIMENOrdering Facility: [facility] Address:[address] [place], [place] [address]Result Comment: 40-59 mg/dL, Acceptable >59 mg/dL, High: Negative risk factor for coronary heart disease <40 mg/dL, Low: Positive risk factor for coronary heart diseasePerformed By: #### 84935-5, LIPNF ####[facility] LABCLIA [id number] [address] [address] [facility] MEMORIAL HOSPITALLDL CHOLESTEROL, NF59 mg/dLNormal<100[facility] on above: Order Comment: Specimen Type: BLOOD SPECIMENOrdering Facility: [facility] Address:[address] [place], [place] [address]Result Comment: <100 mg/dL, Optimal 100-129 mg/dL, Near optimal/above optimal 130-159 mg/dL, Borderline high 160-189 mg/dL, High >189 mg/dL, Very high Secondary prevention optimal LDL Cholesterol levels are recommended to be < 70 mg/dLPerformed By: #### 90092-1, LIPNF ####[facility] LABIA [id number] [address] LDL/HDL RATIO, NF1.16 mg/dLNormal<2.54[facility] on above:Order Comment: Specimen Type: BLOOD SPECIMENOrdering Facility: [facility] Address:[address] [place], [place] [address]Result Comment: Reference: 1. National Cholesterol Education Program ATP III Guideline At-A-Glance Quick Desk Reference: National Heart, Lung, and Blood [place]. National Institutes of Health. 2001: NIH Publication No. 01-3305. 2. An International Atherosclerosis Society position paper: global recommendations for the management of dyslipidemia: executive summary, Atherosclerosis. 2014: 232(2):410-413.Performed By: #### 96361-1, LIPNF ####[facility] LABIA [id number] [place] [address] [place] AMERICANON HDL CHOL, NF93 mg/dLNormal <130[facility] on above:Order Comment: Specimen Type: BLOOD SPECIMENOrdering Facility: [facility] Address:[address] [place], [place] [address]Result Comment: <130 mg/dL, Optimal 130-159 mg/dL, Near optimal/above optimal 160-189 mg/dL, Borderline high 190-219 mg/dL, High >219 mg/dL, Very high Secondary prevention optimal non HDL Cholesterol levels are recommended to be <100 mg/dLPerformed By: #### 69166-4, LIPNF ####[facility] LABCLIA [id number] [address] [facility]INCENT HOSPITALT CHOL/HDL RATIO NF2.82 mg/dLNormal<5.10[facility] Comment on above:Order Comment: Specimen Type: BLOOD SPECIMENOrdering Facility: [facility] Address:[address] [place] [address] Performed By: #### 71660-4, LIPNF ####[facility] [id number] [address] STATES [facility] TRIGLYCERIDES, NF168 mg/dLHigh<150Detwiler Memorial HospitalComment on above: Order Comment: Specimen Type: BLOOD SPECIMENOrdering Facility: [facility] Address:[address] [place], [place] [address]Result Comment: <150 mg/dL, Normal 150-199 mg/dL, Borderline high 200-499 mg/dL, High >499 mg/dL, Very highPerformed By: #### 18014-7, LIPNF ####[facility] [id number] [address] STATES OF [address] VINCENT HOSPITALVLDL CHOLESTEROL, NF34 mg/dLHigh<30[facility] Comment on above:Order Comment: Specimen Type: BLOOD SPECIMENOrdering Facility: [facility] Address:[address] [place] [address] Performed By: #### 17831-5, LIPNF ####[facility] [id number] [address] [place] Issa 11-40-8521VBZMWjmyzvrna ([facility] MANOLO ROCHE ([id number]) 1935 M Date Time Provider Department 09/22/24 [...] Date Reviewed: 07/06/2024 Reviewed by: Ayana Zavala APRN.MOTOR ROOM CONTROLLER - Fully Assessed Prescriptions as of 09/22/2024 [...] 5,) crtg Change every 72 hours. - iwwgyh-nkvltocm-gplptui (CREON) 24,000-76,000 -120,000 unit cpDR Take 2 [...] *06/23/2018 Encounter Status:Closed by GAYE MATA on 09/22/24NoWright-Patterson Medical CenterValdemarphone (LIANNA) MANOLO ROCHE ([id number]) 1935 M Date Time Provider Department 09/22/24 [...] Date Reviewed: 07/06/2024 Reviewed by: Ayana Zavala APRN.MOTOR ROOM CONTROLLER - Fully Assessed Reason for Visit: Omnipod [...] 5,) crtg Change every 72 hours. - eegcwt-vyfvdplv-frjpvhm (CREON) 24,000-76,000 -120,000 unit cpDR Take 2 [...] *06/23/2018 Encounter Status:Closed by GAYE MATA on 09/22/24[facility] 01-56-1292OXSGNbykmrnds (LIANNA) MANOLO ROCHE ([id number]) 1935 M Date Time Provider Department 09/21/24 GAYE MATA During your visit today, we recorded the following information about you: Allergies As of Date: 09/21/2024 (No Known Allergies) Date Reviewed: 07/06/2024 Reviewed by: Ayana Zavala APRN.MOTOR ROOM CONTROLLER - Fully Assessed Reason for Visit: Omod [...] 5,) crtg Change every 72 hours. - dcsfsn-krqdefie-xgdvfkv (CREON) 24,000-76,000 -120,000 unit cpDR Take 2 [...] *06/23/2018 Encounter Status:Closed by GAYE MATA on 09/21/24[facility] BASIC METABOLIC PANELon 62-80-0473Hqfwr gap [Moles/Vol]13.1 mmol/L [facility] HealthcareCalcium [Mass/Vol]9 mg/dL8.5 - 10.1 mg/dLNOMS HealthcareChloride [Moles/Vol]99 mmol/L98 - 107 mmol/LNOMS HealthcareCO2 [Moles/Vol]31.2 mmol/L21.0 - 32.0 mmol/LNOMS HealthcareCreatinine [Mass/Vol]1.31 mg/dLHigh0.70 - 1.30 mg/dLNOMS HealthcareGFR/1.73 sq M.predicted CKD-EPI (S/P/Bld) [Vol rate/Area]>60 >=60 mL/min/1.73m 2NOMS HealthcareGlucose [Mass/Vol]385 mg/bWPhox54 - 106 mg/dL [facility] HealthcarePotassium [Moles/Vol]4.3 mmol/L3.5 - 5.1 mmol/LNOMS Healthcare Sodium [Moles/Vol]139 mmol/L136 - 145 mmol/LNOMS HealthcareTBH EGFR-NON AF ANPDLVNI44Rmf>=60 mL/min/1.73m 2NOMS HealthcareUrea nitrogen [Mass/Vol]23 mg/dL High7.0 - 18.0 mg/dLNOMS HealthcareUrea nitrogen/Creatinine [Mass ratio]17.6 mg/mgNOMS HealthcareALL PRO BNPon 68-91-1719FP PRO B TYPE NATRIURETIC [id number] pg/mLCritically highNINF - 1800.0 pg/mLNOMS HealthcareComment on above:RESULTS CALLED TO ZENAIDA SANDOVAL RN AT [facility] Panel Informationon 09-13-2024 Interpretation and review of laboratory resultsAbnormalNOAK HealthcareCLINISYNC NOMS HealthcareCNNURSEon 97-18-1024OILAQFGMmled Visit (LIANNA) MANOLO ROCHE ([id number]) 1935 M Date Time Provider Department 09/04/24 1:00 PM GAYE MATA During your visit today, we recorded the following information about you: Gaye Mata, KARIN 09/04/2024 3:22 PM Signed DIABETES SELF-MANAGEMENT EDUCATION AND SUPPORT FOLLOW-UP VISIT Type of Diabetes: Type 2 Location: [place] Type of visit: In person individual Types [...] meter for manual fingersticks, not connected to [employer] Type of visit: In person individual Patient [...] Name: Insulet Omnipod? 5 System Serial Number: [id number] Sync Date: 09/04/24 Device Time Offset (hh:mm): +00:00 Device Name: Insulet Omnipod Dash? System Serial Number: [id number] Sync Date: 03/05/22 Device Time Offset (hh:mm): +00:00 Device Name: Insulet Omnipod Dash? System Serial Number: [id number] Sync Date: 11/14/21 Device Time Offset (hh:mm): +00:00 Device Name: Insulet Omnipod DASH? Bartholomew Serial Number: Insulet Dash Sync Date: 09/19/20 Device Time Offset (hh:mm): +00:00 Device Name: Insulet Omnipod Dash? System Serial Number: [id number] Sync Date: 09/19/20 Device Time Offset (hh:mm): [...] (more content not included)...NormalSouthwest General Health Centeron 95-97-6837HMTWTfiehmzzs (LIANNA) MANOLO ROCHE ([id number]) 1935 M Date Time Provider Department 08/31/24 [...] Omnipod, Glooko, and Dexcom G7, his smartphone, OmnipElectroCore 5 controller phone fully charged and updated if needed so the pump start will go smoothly. requested email resent to her with instructions on day of training information to [email or web address] Allergies As of Date: 08/31/2024 (No Known Allergies) Date Reviewed: 07/06/2024 Reviewed by: Ayana Zavala APRN.MOTOR ROOM CONTROLLER - Fully Assessed Reason for Visit: Appointment [...] 5,) crtg Change every 72 hours. - keptlp-bzsaqizv-wgheplj (CREON) 24,000-76,000 -120,000 unit cpDR Take 2 [...] *06/23/2018 Encounter Status:Closed by GAYE MATA on 08/31/24NoWright-Patterson Medical CenterCNPNon 91-06-0167VPOKCkacpcdkl (ENDOLN) MANOLO ROCHE ([id number]) 1935 M Date Time Provider Department 08/15/24 AYANA ZAVALA ENDOLN During your visit today, we recorded the following information about you: Miguel A Goodwin MA 08/15/2024 10:24 AM Signed Received a fax from [facility] for a physician's order. Placed on Ayana's desk for signature on form and chart notes. Miguel A Goodwin MA 08/15/2024 11:57 AM Signed Form completed, faxed, confirmation received. Sent for scan. Allergies As of Date: 08/15/2024 (No Known Allergies) Date Reviewed: 07/06/2024 Reviewed by: Ayana Zavala APRN.MOTOR ROOM CONTROLLER - Fully Assessed Reason for Visit: Forms [913] Cmt: [employer]- Physcians order Prescriptions as of 08/15/2024 - [...] 5,) crtg Change every 72 hours. - midqbe-upqikdty-lvgtkij (CREON) 24,000-76,000 -120,000 unit cpDR Take 2 [...] *06/23/2018 Encounter Status:Closed by ERICK PEGUERO on 08/15/24[facility] Hospitaldanuta 77-99-2873WUCENwaceiklo (ENDOLN) MANOLO ROCHE ([id number]) 1935 M Date Time Provider Department 08/09/24 AYANA ZAVALA During your visit today, we recorded the following information about you: Sheryl Ny MA 08/09/2024 10:39 AM Signed A form has been received from [employer] for [facility]CA steen. Faxed [facility] note 07/06/24 to [phone]. Confirmation received. Allergies As of Date: 08/09/2024 (No Known Allergies) Date Reviewed: 07/06/2024 Reviewed by: Ayana Zavala APRN.MOTOR ROOM CONTROLLER - Fully Assessed Reason for Visit: Forms [203] Cmt: [facility] - LUCA note Prescriptions as [...] 5,) crtg Change every 72 hours. - bkrhoq-deizlklk-kzsdyud (CREON) 24,000-76,000 -120,000 unit cpDR Take 2 [...] *06/23/2018 Encounter Status:Closed by SHERYL [place] on 08/09/24[facility] Hospitalon 48-19-1471KBHBTUUWdico Visit ([facility]) MANOLO ROCHE ([id number]) 1935 M Date Time Provider Department 07/25/24 1:00 PM GAYE MATA During your visit today, we recorded the following information about you: Gaye Mata, RN 07/25/2024 5:09 PM Signed DIABETES CARE AND EDUCATION VISIT Location: [place] Type of visit: In person individual PATIENT'S [...] below for current pump settings Name: Manolo oRche Date of : 1935 Report Created: 07/25/2024 [...] - - - - DEVICES Device Name: Transactis? System Serial Number: [id number] Sync Date: 07/06/24 Device Time Offset (hh:mm): [...] basics AND daily use and CGM type: Edtrips G7 with reader. Patient understand he will need to download Edtrips G7 eliane on his Iphone SE. Patient unable to recall log in for Dexcom eliane. Patient downloaded G6 eliane, not G7 eliane. Educator needed to call Edtrips for assistance in resetting password as patient [...] terminology: basal, bolus, carb ratio, BG target, nldsevs-nh-mcrkk/duration, and patient did not bring insulin vials with him so we were unable to start pump today. Patient and leaving for [place] for a month tomorrow and has rescheduled [...] TOPICS: 1. Patient and to return after [place] trip to start Omnipod 5 switch from [...] vials or have eliane (more content not included)...NormalFirelands [facility] BASIC METABOLIC PANELon 79-52-1189Lxaqb gap [Moles/Vol]16.6 mmol/LNOMS HealthcareCalcium [Mass/Vol]8.8 mg/dL8.5 - 10.1 mg/dLNOAK HealthcareChloride [Moles/Vol]99 mmol/L98 - 107 mmol/L N[facility] HealthcareCO2 [Moles/Vol]27.6 mmol/L21.0 - 32.0 mmol/LNOMS Healthcare Creatinine [Mass/Vol]1.12 mg/dL0.70 - 1.30 mg/dLNOAK HealthcareGFR/1.73 sq M.predicted CKD-EPI (S/P/Bld) [Vol rate/Area]>60>=60 mL/min/1.73m 2NOMS HealthcareGlucose [Mass/Vol]297 mg/xOLuhi69 - 106 mg/dLNOAK Healthcare Interpretation and review of laboratory resultsAbnormalNOAK HealthcarePotassium [Moles/Vol]4.2 mmol/L3.5 - 5.1 mmol/LNOMS HealthcareSodium [Moles/Vol]139 mmol/L 136 - 145 mmol/LNOMS HealthcareTBH EGFR-NON AF [place]>60>=60 mL/min/1.73m 2 NOMS HealthcareUrea nitrogen [Mass/Vol]22 mg/dLHigh7.0 - 18.0 mg/dLNOAK HealthcareUrea nitrogen/Creatinine [Mass ratio]19.6 mg/mgNOAK Healthcare CLINISYNCNOAK HealthcareCNPNon 31-93-8180VTWTOiyttqtkl ([facility]) MANOLO ROCHE ([id number]) 1935 M Date Time Provider Department 07/21/24 GAYE MATALeeann During your visit today, we recorded the following information about you: Allergies As of Date: 07/21/2024 (No Known Allergies) Date Reviewed: 07/06/2024 Reviewed by: Ayana Zavala APRN.MOTOR ROOM CONTROLLER - Fully Assessed Reason for Visit: Appointment [...] 5,) crtg Change every 72 hours. - pwregs-kkkeublm-qwumkvp (CREON) 24,000-76,000 -120,000 unit cpDR Take 2 [...] *06/23/2018 Encounter Status:Closed by GAYE MATA on 07/21/24No80 [facility] Street with Estimated Average Gluon 59-51-1507Pxhkulx [Mass/Vol]235 mg/dL NormalThe [facility] Mountain Physician GroupComment on above:Result Comment: PERFORMED BY: [address] [place] [address] PATHOLOGIST CODING CLERKS SUPERVISOR ANDRE PERALTA M.D.Performed By: #### GLULS #### Point of Care testing ,HbA1c (Bld) [Mass fraction]9.8 %High4.3-5.6The [facility] Physician GroupComment on above:Result Comment: Increased risk for diabetes: 5.7 - 6.4 diabetes: >6.4 glycemic control for adults with diabetes: <7.0Performed By: #### GLULS #### Point of Care testing ,Acanthocytes [Presence] in Blood by Light microscopyOrdered By: Indra Guillory on 86-64-5969Ssurfvptgiyq LM Ql (Bld)Acanthocytes [Presence] in Blood by Light microscopyFirelands Regional Medical CenterAlanine aminotransferase [Enzymatic activity/volume] in Serum or PlasmaOrdered By: Indra Guillory on 16-99-3842CBT [Catalytic activity/Vol]Alanine aminotransferase [Enzymatic activity/volume] in Serum or Plasma7-52[facility] HospitalAlbumin [Mass/volume] in Serum or Plasma by Bromocresol green (BCG) dye binding metho Ordered By: Indra Guillory on 04-34-7835Vbinchw BCG dye [Mass/Vol]Albumin [Mass/volume] in Serum or Plasma by Bromocresol green (BCG) dye binding metho 3.5-5.7[facility] HospitalAlkaline phosphatase [Enzymatic activity/volume] in Serum or PlasmaOrdered By: Indra Guillory on 07-17-2024 ALP [Catalytic activity/Vol]Alkaline phosphatase [Enzymatic activity/volume] in Serum or XwmoroBbxb32-091NfiqolwgvCleveland Clinic Hillcrest HospitalAnisocytosis LM Ql (Bld)Ordered By: Indra Guillory on 99-50-2762Jsbhpeloavpl Ql (Bld) Anisocytosis [Presence] in Blood by Light microscopyCleveland Clinic Hillcrest HospitalAspartate aminotransferase [Enzymatic activity/volume] in Serum or Plasma Ordered By: Indra Guillory on 39-56-0677TEM [Catalytic activity/Vol] Aspartate aminotransferase [Enzymatic activity/volume] in Serum or Vjzffa13-14 [facility] HospitalBand form neutrophils/100 WBC Manual cnt (Bld) Ordered By: Indra Guillory on 40-98-4227Qsmp form neutrophils/100 WBC (Bld) Peripheral white blood cell differential % bands, microscopic exam0-5[facility] HospitalBasophils Auto (Bld) [#/Vol]Ordered By: Indra Guillory on 11-76-7154Ycazykcsp (Bld) [#/Vol]Automated basophil countCleveland Clinic Hillcrest HospitalBasophils/100 WBC Auto (Bld)Ordered By: Indra Guillory on 96-27-4814Zfcwunwjt/100 WBC (Bld)Automated basophil %[facility] HospitalBilirubin.total [Mass/volume] in Serum or PlasmaOrdered By: Indra Guillory on 92-55-0194Wfqwkagwm [Mass/Vol]Bilirubin.total [Mass/volume] in Serum or Plasma0.3-1.0[facility] HospitalBioFire Not Detectedon 97-24-5461YnsUvug Not DetectedNot detectedNormalNot DetecteThe [facility] Physician GroupComment on above:Result Comment: This is a duplicate RP2.1 COVID (PCR) result to be used for statistical tracking purpose only. PERFORMED BY: [facility] [address] [place] [address] PATHOLOGIST CODING CLERKS SUPERVISOR ANDRE PERALTA M.D.Performed By: #### GLULS #### Point of Care testing ,Blood estimated average glucose determination by estimation from glycated hemoglobinOrdered By: Indra Guillory on 26-99-6974Yenbcys glucose Estimated from glycated hemoglobin (Bld) [Mass/Vol]Glucose mean value [Mass/volume] in Blood Estimated from glycated hemoglobinCleveland Clinic Hillcrest HospitalBurr cells [Presence] in Blood by Light microscopyOrdered By: Indra Guillory on 29-92-4362Apna cells LM Ql (Bld)Joppa cells [Presence] in Blood by Light microscopyCleveland Clinic Hillcrest HospitalCOVID-19 Detected/Not DetectedOrdered By: Indra Guillory on 93-79-1476BDYS-CoV-2 (COVID-19) RNA ANASTASIA+non-probe Ql (Nph)Not detectedNot DetectOhioHealthComment on above: This is a duplicate RP2.1 COVID (PCR) result to be used for statistical tracking purpose only.Calcium [Mass/volume] in Serum or PlasmaOrdered By: Indra Guillory on 03-27-0593Mbgazrm [Mass/Vol]Calcium [Mass/volume] in Serum or Plasma8.6-10.3[facility] HospitalCarbon dioxide, total [Moles/volume] in Serum or PlasmaOrdered By: Indra Guillory on 07-17-2024 CO2 [Moles/Vol]Carbon dioxide, total [Moles/volume] in Serum or Wbxuyg94.0-31.0 [facility] HospitalChloride [Moles/volume] in Serum or Plasma Ordered By: Indra Guillory on 41-09-4928Fhhojlkl [Moles/Vol]Chloride [Moles/volume] in Serum or PnfkwmDre30-872OpxrijauuCleveland Clinic Hillcrest Hospital Comprehensive Metabolic Panelon 46-99-3169Grxavoy [Mass/Vol]3.6 g/dLNormal 3.5-5.7The [facility] Physician GroupComment on above:Performed By: #### GLULS #### Point of Care testing ,Albumin/Globulin [Mass ratio]1.2 {ratio}NormalThe [facility] Comment on above:Performed By: #### GLULS #### Point of Care testing ,ALP [Catalytic activity/Vol]136 U/JNvmw53-092Ife [facility] Comment on above:Performed By: #### GLULS #### Point of Care testing ,ALT [Catalytic activity/Vol]18 U/LNormal7-52[facility] Comment on above:Performed By: #### GLULS #### Point of Care testing ,Anion gap [Moles/Vol]11.6 mmol/LNormal6.0-15.0[facility] Comment on above:Performed By: #### GLULS #### Point of Care testing ,AST [Catalytic activity/Vol]20 U/VHydlrm59-74Hmw [facility] Comment on above:Performed By: #### GLULS #### Point of Care testing ,Bilirubin [Mass/Vol]0.6 mg/dLNormal0.3-1.0The [facility] Physician GroupComment on above:Performed By: #### GLULS #### Point of Care testing ,Calcium [Mass/Vol]8.8 mg/dLNormal8.6-10.3The [facility] Physician GroupComment on above:Performed By: #### GLULS #### Point of Care testing ,Chloride [Moles/Vol]96 mmol/HHbq09-848Xku [facility] Physician GroupComment on above:Performed By: #### GLULS #### Point of Care testing ,CO2 [Moles/Vol]28.2 mmol/MPwojjq96.0-31.0The [facility] Physician GroupComment on above:Performed By: #### GLULS #### Point of Care testing ,Creatinine [Mass/Vol]1.03 mg/dLNormal0.70-1.30The [facility] Comment on above:Performed By: #### GLULS #### Point of Care testing ,Creatinine Clr Calc Fkfsrbjk92.38NormMemorial Hospital Pembroke Physician GroupComment on above:Result Comment: PERFORMED BY: [facility] [place] [address] PATHOLOGIST CODING CLERKS SUPERVISOR ANDRE PERALTA M.D.Performed By: #### GLULS #### Point of Care testing ,GFR/1.73 sq M.predicted MDRD (S/P/Bld) [Vol rate/Area]mL/min/{1.73_m2}NormalThe [facility] Physician GroupComment on above:Performed By: #### GLULS #### Point of Care testing ,Globulin (S) [Mass/Vol]3.0 g/dLNoAtrium Health [facility] Physician GroupComment on above:Performed By: #### GLULS #### Point of Care testing ,Glucose [Mass/Vol]443 mg/dLSignificant change nz44-413Tma [facility] Physician GroupComment on above:Result Comment: Random Glucose Reference Range is dependent on time and content of last meal. Glucose of more than 200 mg/dL in a nonstressed, ambulatory subject supports the diagnosis of Diabetes Mellitus. ADA recommended reference rangePerformed By: #### GLULS #### Point of Care testing ,Potassium [Moles/Vol]4.8 mmol/LNormal3.5-5.1The [facility] Comment on above:Performed By: #### GLULS #### Point of Care testing ,Protein [Mass/Vol]6.6 g/dLNormal6.4-8.9The [facility] Physician GroupComment on above:Performed By: #### GLULS #### Point of Care testing ,Sodium [Moles/Vol]131 mmol/QQwh155-762Mvk [facility] Physician GroupComment on above:Performed By: #### GLULS #### Point of Care testing ,Urea nitrogen [Mass/Vol]20 mg/dLNormal7-25The [facility] Physician GroupComment on above:Performed By: #### GLULS #### Point of Care testing ,Creatinine [Mass/volume] in Serum or PlasmaOrdered By: Indra Guillory on 11-48-3976Fedkjqgdce [Mass/Vol]Creatinine [Mass/volume] in Serum or Plasma 0.70-1.30[facility] HospitalDiff and CBCon 24-87-8761Utthyiuwlqao MarkedBaptist Health Doctors Hospital Physician GroupComment on above:Performed By: #### GLULS #### Point of Care testing ,Anisocytosis Ql (Bld)ModerateBaptist Health Doctors Hospital Physician GroupComment on above:Performed By: #### GLULS #### Point of Care testing ,Band form neutrophils/100 WBC (Bld)1 %Normal0-5The [facility]ician [facility] Comment on above:Performed By: #### GLULS #### Point of Care testing ,Crenated RBCModerateBaptist Health Doctors Hospital Physician GroupComment on above: Performed By: #### GLULS #### Point of Care testing ,Erythrocyte distribution width (RBC) [Ratio]19.7 %High12.0-14.8The [facility] Physician GroupComment on above:Performed By: #### GLULS #### Point of Care testing ,Helmet CellsSlightBaptist Health Doctors Hospital Physician GroupComment on above:Performed By: #### GLULS #### Point of Care testing ,Hematocrit (Bld) [Volume fraction]37.8 %Low38.8-50.0The [facility] Physician GroupComment on above:Performed By: #### GLULS #### Point of Care testing ,Hemoglobin (Bld) [Mass/Vol]12.4 g/dLLow13.0-17.0[facility]ician [facility] Comment on above:Performed By: #### GLULS #### Point of Care testing ,HypochromasiaMarkedBaptist Health Doctors Hospital Physician GroupComment on above: Performed By: #### GLULS #### Point of Care testing ,Lymphocytes/100 WBC (Bld)18 %Qhziqp36-87Ehm [facility] Physician GroupComment on above:Performed By: #### GLULS #### Point of Care testing ,MCH (RBC) [Entitic mass]26.3 pgLow27.5-35.2The [facility] Physician GroupComment on above:Performed By: #### GLULS #### Point of Care testing ,MCV (RBC) [Entitic vol]80.0 fLLow83.5-101The [facility] Physician GroupComment on above:Performed By: #### GLULS #### Point of Care testing ,Mean Corpuscular HGB Conc32.8 g/wEFczxpx07.5-35.6The [facility] Comment on above:Performed By: #### GLULS #### Point of Care testing ,MicrocytosisSlightBaptist Health Doctors Hospital Physician GroupComment on above:Performed By: #### GLULS #### Point of Care testing ,Monocytes/100 WBC (Bld)4 %Normal2-11The [facility] Physician GroupComment on above:Performed By: #### GLULS #### Point of Care testing ,Platelet EstimateNormalNormalBaptist Health Doctors Hospital Physician GroupComment on above:Performed By: #### GLULS #### Point of Care testing ,Platelet mean volume (Bld) [Entitic vol]11.0 fLHigh6.6-10.1The [facility] Physician GroupComment on above:Performed By: #### GLULS #### Point of Care testing ,Platelet MorphologyNormalNormalBaptist Health Doctors Hospital Physician GroupComment on above:Result Comment: PERFORMED BY: [facility] [address] [place] [address] PATHOLOGIST CODING CLERKS SUPERVISOR ANDRE PERALTA M.D.Performed By: #### GLULS #### Point of Care testing ,Platelets (Bld) [#/Vol]229 10*3/rPXysnso376-178[facility]ob[facility] Comment on above:Performed By: #### GLULS #### Point of Care testing ,PoikilocytosisMarkedBaptist Health Doctors Hospital Physician GroupComment on above: Performed By: #### GLULS #### Point of Care testing ,PolychromasiaSlightNoAtrium Health [facility] Physician GroupComment on above: Performed By: #### GLULS #### Point of Care testing ,RBC (Bld) [#/Vol]4.73 10*6/uLNormal3.90-5.60[facility] Physician [facility] Comment on above:Performed By: #### GLULS #### Point of Care testing ,SchistocytesModerateBaptist Health Doctors Hospital Physician GroupComment on above: Performed By: #### GLULS #### Point of Care testing ,Segmented neutrophils/100 WBC (Bld)77 %Laqi92-86Czl [facility] Comment on above:Performed By: #### GLULS #### Point of Care testing ,Target CellsModHCA Florida Putnam Hospital Physician GroupComment on above: Performed By: #### GLULS #### Point of Care testing ,WBC (Bld) [#/Vol]4.8 10*3/uLNormal4.1-10.5The [facility] Physician GroupComment on above:Performed By: #### GLULS #### Point of Care testing ,Eosinophils Auto (Bld) [#/Vol]Ordered By: Indra Guillory on 07-17-2024 Eosinophils (Bld) [#/Vol]Automated eosinophil countCleveland Clinic Hillcrest HospitalEosinophils/100 WBC Auto (Bld)Ordered By: Indra Guillory on 02-09-3037Moyqssbmgbo/100 WBC (Bld)Automated eosinophil %[facility] HospitalErythrocyte distribution width Auto (RBC) [Ratio]Ordered By: Indra Guillory on 87-04-7244Ufyvnsvhknc distribution width (RBC) [Ratio] Erythrocyte distribution width [Ratio] by Automated mcqsvGxlb50.0-14.8[facility] HospitalErythrocyte morphology finding [Identifier] in Blood Ordered By: Indra Guillory on 81-08-3323GIG morphology finding Nom (Bld)RBC morphologyCleveland Clinic Hillcrest HospitalGlobulin Calc (S) [Mass/Vol]Ordered By: Indra Guillory on 20-39-9941Tfpkuunt (S) [Mass/Vol]Serum globulin measurement by calculation (mass/volume)[facility] HospitalGlucose Glucometer (BldC) [Mass/Vol]Ordered By: Lisa Hidalgo on 24-34-1669Ikkpkji [Mass/Vol]Capillary blood glucose measurement by glucometer (mass/volume) [facility] HospitalComment on above:Random Glucose Reference Range is dependent on time and content of last meal. Glucose of more than 200 mg/dL in a nonstressed, ambulatory subject supports the diagnosis of Diabetes Mellitus.Glucose Poct Glucometerson 48-54-4911Pzhdmru [Mass/Vol]299 mg/dLNormal The [facility] Physician GroupComment on above:Result Comment: Random Glucose Reference Range is dependent on time and content of last meal. Glucose of more than 200 mg/dL in a nonstressed, ambulatory subject supports the diagnosis of Diabetes Mellitus. PERFORMED BY: [place] [id number] PATHOLOGIST CODING CLERKS SUPERVISOR ANDRE PERALTA M.D.Performed By: #### GLULS ####Point of Care testing, Glucose [Mass/Vol]341 mg/dLNoAtrium Health [facility] Physician GroupComment on above: Result Comment: Random Glucose Reference Range is dependent on time and content of last meal. Glucose of more than 200 mg/dL in a nonstressed, ambulatory subject supports the diagnosis of Diabetes Mellitus. PERFORMED BY: [address] [place] [address] PATHOLOGIST CODING CLERKS SUPERVISOR ANDRE PERALTA M.D.Performed By: #### GLULS #### Point of Care testing ,Glucose [Mass/Vol]386 mg/dLNoAtrium Health [facility] Physician GroupComment on above: Result Comment: Random Glucose Reference Range is dependent on time and content of last meal. Glucose of more than 200 mg/dL in a nonstressed, ambulatory subject supports the diagnosis of Diabetes Mellitus. PERFORMED BY: [address] [address] PATHOLOGIST CODING CLERKS SUPERVISOR ANDRE PERALTA M.D.Performed By: #### GLULS ####Point of Care testing, Cngxwxa2DretmvJtgBaptist Health Doctors Hospital Physician GroupComment on above:Result Comment: Glu2: Will Repeat TestPerformed By: #### GLULS #### Point of Care testing ,Tenizvh2MWIP NOTIFY DR/KARINMaple Grove HospitalComment on above: Performed By: #### GLULS #### Point of Care testing ,Qktrkqy5Pselqzq MeterBaptist Health Doctors Hospital Physician GroupComment on above:Result Comment: PERFORMED BY: [place] [address] PATHOLOGIST CODING CLERKS SUPERVISOR ANDRE PERALTA M.D.Performed By: #### GLULS #### Point of Care testing ,Glucose [Mass/Vol]406 mg/dLOff scale [facility] Physician GroupComment on above:Result Comment: Random Glucose Reference Range is dependent on time and content of last meal. Glucose of more than 200 mg/dL in a nonstressed, ambulatory subject supports the diagnosis of Diabetes Mellitus.Performed By: #### GLULS #### Point of Care testing ,Ykmmifp1BeyyukYbv[address] Physician GroupComment on above:Result Comment: Glu2: WILL NOTIFY DR/RN PERFORMED BY: [place] [address] PATHOLOGIST CODING CLERKS SUPERVISOR ANDRE PERALTA M.D.Performed By: #### GLULS #### Point of Care testing ,Glucose [Mass/Vol]451 mg/dLOff scale [facility] Physician GroupComment on above:Result Comment: Random Glucose Reference Range is dependent on time and content of last meal. Glucose of more than 200 mg/dL in a nonstressed, ambulatory subject supports the diagnosis of Diabetes Mellitus.Performed By: #### GLULS #### Point of Care testing ,Rkpscnt3ScrhmhYwu[address] Physician GroupCompranay on above:Result Comment: Glu2: Will Repeat Test PERFORMED BY: [place] [address] PATHOLOGIST CODING CLERKS SUPERVISOR ANDRE PERALTA M.D.Performed By: #### GLULS #### Point of Care testing ,Glucose [Mass/Vol]444 mg/dLOff scale [facility] Physician GroupComment on above:Result Comment: Random Glucose Reference Range is dependent on time and content of last meal. Glucose of more than 200 mg/dL in a nonstressed, ambulatory subject supports the diagnosis of Diabetes Mellitus.Performed By: #### GLULS #### Point of Care testing ,Glucose [Mass/volume] in Serum or PlasmaOrdered By: Indra Guillory on 68-64-1587Xupohyk [Mass/Vol]Glucose [Mass/volume] in Serum or PlasmaInvalid Interpretation Zozk16-148RlfbibuzvCleveland Clinic Hillcrest HospitalComment on above: Delta: 191 on 07/16/24-0ADA recommended reference rangeRandom Glucose Reference Range is dependent on time and content of last meal. Glucose of more than 200 mg/dL in a nonstressed, ambulatory subject supports the diagnosis of Diabetes Mellitus.Helmet cells [Presence] in Blood by Light microscopyOrdered By: nIdra Guillory on 65-27-1404Iiazaz cells LM Ql (Bld)Helmet cell detectionCleveland Clinic Hillcrest HospitalHematocrit Auto (Bld) [Volume fraction]Ordered By: Indra Guillory on 88-95-4038Oihttlixek (Bld) [Volume fraction]Hematocrit [Volume Fraction] of Blood by Automated sxyibFih30.8-50.0 [facility] HospitalHemoglobin A1c/Hemoglobin.total in BloodOrdered By: Indra Guillory on 37-96-2612PxP1l (Bld) [Mass fraction]Hemoglobin A1c percentageHigh4.3-5.6[facility] HospitalComment on above:Increased risk for diabetes: 5.7 - 6.4diabetes: >6.4glycemic control for adults with diabetes: <7.0Hemoglobin [Mass/volume] in BloodOrdered By: Indra Guillory on 80-44-9471Uoesvyxzzd (Bld) [Mass/Vol]Hemoglobin [Mass/volume] in KlvibBbf62.0-17.0[facility] HospitalHypochromia LM Ql (Bld)Ordered By: Indra Guillory on 00-89-3820Rtsxfdfmmfg Ql (Bld)Hypochromia [Presence] in Blood by Light microscopyCleveland Clinic Hillcrest HospitalINR in Platelet poor plasma by Coagulation assayOrdered By: Indra Guillory on 32-52-4824QKE Coag (PPP) [Relative time]INR in Platelet poor plasma by Coagulation assay [facility] HospitalComment on above:INR Therapeutic Range A) Pre- and [...] [id number] Received: 07/17/24 Status: LYUDMILA Gómez Num: [id number] Spec Type: Impression Subm Dr: Indra Guillory MD Tissues: PATHPER Procedures: PATHREVIEW Age/ Patient Sex Location Account Attending Physician Manolo Roche 89/M 4N [id number] Lisa Hidalgo MD SPEC NUM: [id number] RECD: 07/17/24 STATUS: LYUDMILA REQ NUM: [id number] MARANDA: 07/17/24 DR: Indra Guillory MD ENTERED: [...] follow- ups are also suggested [facility] [address] Specimen: Received: 07/17/24 Status: LOVELeeann Gómez Num: [id number] Spec Type: Impression Subm Dr: Indra Guillory MD Tissues: PATHPER Procedures: PATHREVIEW Patient: Manolo Roche [id number] (Continued) Specimen: Received: 07/17/24 (Continued) Signed (signature on file) Donovan Bunch MD 07/17/24 1128 Specimen: Received: 07/17/24 Status: LYUDMILA Gómez Num: [id number] Spec Type: Impression Subm Dr: Indra Guillory MD Tissues: PATHPER Procedures: PATHREVIEW Patient: Manolo Roche [id number] (Continued) Specimen: [id number] Received: 07/17/24-851 (Continued) CBC Date Time Test Result Flag (u) Normal Range 07/16/24 1230 Neut % (Auto) 64.8 . % Lymp % (Auto) 18.9 . % Guadalupe % (Auto) 12.8 . % Eos % (Auto) 2.7 . % Baso % (Auto) 0.8 . % NRBC% 0.2 0-0.5 /100 WBC Neut # (Auto) 4.7 1.8-7.7 x10E3/uL Lymph # (Auto) 1.4 1.00-4.8 x10E3/uL Guadalupe # (Auto) 0.9 H 0.0-0.8 x10E3/uL Eos [...] 1 0-5 % Lymph 18 18-42 % Guadalupe 4 2-11 % Polychrom Slight Hypochrom Marked Poik Marked Aniso Moderate Micro Slight Schisto Moderate Target Moderate Helmet Cells Slight Crenated RBC Moderate Acantho Marked Plt Est Normal Normal Plt Morphology Normal Normal Specimen: [id number] Received: 07/17/24 Status: LYUDMILA Gómez Num: [id number] Spec Type: Impression Subm Dr: Indra Guillory MD Tissues: PATHPER Procedures: PATHREVIEW Patient: Manolo Roche [id number] (Continued) Signed (signature on file) IreneSalo Julio C (more content not included)...NormalAdventhealth Heart Of Florida Physician GroupLeukocytes [#/volume] corrected for nucleated erythrocytes in Blood by Automated counOrdered By: Indra Guillory on 11-84-2704XBI corrected for nucl RBC Auto (Bld) [#/Vol] Leukocytes [#/volume] corrected for nucleated erythrocytes in Blood by Automated coun4.1-10.5[facility] HospitalLymphocytes Auto (Bld) [#/Vol] Ordered By: Indra Guillory on 01-18-4681Unnanzcixxz (Bld) [#/Vol] Lymphocytes [#/volume] in Blood by Automated countCleveland Clinic Hillcrest HospitalLymphocytes/100 WBC Auto (Bld)Ordered By: Indra Guillory on 93-42-7568Stuldbwznvy/100 WBC (Bld)Lymphocytes/100 leukocytes in Blood by Automated countCleveland Clinic Hillcrest HospitalLymphocytes/100 WBC Manual cnt (Bld)Ordered By: Indra Guillory on 08-16-8439Ffzvcjzvrjg/100 WBC (Bld) Lymphocytes/100 leukocytes in Blood by Manual omllp64-04TvmvyjjooCity Hospital Auto (RBC) [Entitic mass]Ordered By: Indra Guillory on 42-87-5400XFD (RBC) [Entitic mass]MCH [Entitic mass] by Automated countLow 27.5-35.2[facility] HospitalMCHC Auto (RBC) [Mass/Vol]Ordered By: Indra Guillory on 67-66-3281BLTR (RBC) [Mass/Vol]MCHC [Mass/volume] by Automated count32.5-35.6FMemorial Health SystemV Auto (RBC) [Entitic vol]Ordered By: Indra Guillory on 30-19-8701GLI (RBC) [Entitic vol]MCV [Entitic volume] by Automated sqkkmVod10.5-101[facility] Microcytes LM Ql (Bld)Ordered By: Indra Guillory on 42-00-5165Wnskyzhing Ql (Bld)Microcytes [Presence] in Blood by Light microscopyCleveland Clinic Hillcrest HospitalMonocytes Auto (Bld) [#/Vol]Ordered By: Indra Guillory on 84-62-0064Skpwidyag (Bld) [#/Vol]Automated blood monocyte countCleveland Clinic Hillcrest HospitalMonocytes/100 WBC Auto (Bld)Ordered By: Indra Guillory on 03-82-8863Hyhxaygbl/100 WBC (Bld)Automated monocyte %[facility] HospitalMonocytes/100 WBC Manual cnt (Bld)Ordered By: Indra Guillory on 34-77-2013Cytgqzmqj/100 WBC (Bld)Monocytes/100 leukocytes in Blood by Manual count2-11[facility] HospitalNeutrophils Auto (Bld) [#/Vol]Ordered By: Indra Guillory on 16-99-7149Zoeajszjikw (Bld) [#/Vol] Neutrophils [#/volume] in Blood by Automated countCleveland Clinic Hillcrest HospitalNeutrophils/100 WBC Auto (Bld)Ordered By: Indra Guillory on 15-70-0285Ysibievmadq/100 WBC (Bld)Automated neutrophil %[facility] HospitalNo Panel InformationOrdered By: Indra Guillory on 07-17-2024 Bedside Glucose #[address]/[facility] Bedside Glucose #3 CommentCleaned meterCleveland Clinic Hillcrest HospitalBedside Glucose CommentSee commentCleveland Clinic Hillcrest HospitalComment on above: Glu2: Will Repeat TestEstimated GFR (CKD-EPI)> 60.0 mL/MinCleveland Clinic Hillcrest HospitalPharmacy Creatinine Clearance (Chem45.38[facility] Health Systemlides for Pathologist ReviewOrdered path reviewCleveland Clinic Hillcrest HospitalNucleated erythrocytes [Presence] in Blood by Automated count Ordered By: Indra Guillory on 52-43-1393Bnkwqaipu RBC Auto Ql (Bld) Nucleated erythrocytes [Presence] in Blood by Automated countCleveland Clinic Hillcrest HospitalPartial Thromboplastin Timeon 72-07-6525fAWY Coag (Bld) [Time]30.6 iVoupwb02.1-36.5The [facility] Physician GroupComment on above:Result Comment: A hematocrit value greater than 55% may lead to inaccurate results in coagulation testing. Patients having hematocrit values >55% require a special collection tube for coagulation studies. Please contact the laboratory at [phone] for redraw instructions. PERFORMED BY: [address] [address] PATHOLOGIST CODING CLERKS SUPERVISOR ANDRE PERALTA M.D.Performed By: #### GLULS #### Point of Care testing ,Pathologist Slide Reviewon 93-30-1328Mqvgrhinhic Slide ReviewOrdered Path ReviewNoAtrium Health [facility] Physician GroupComment on above:Result Comment: PERFORMED BY: [address] [place] [address] PATHOLOGIST CODING CLERKS SUPERVISOR ANDRE PERALTA M.D.Performed By: #### GLULS #### Point of Care testing ,Pathology study report documentOrdered By: Donovan Bunch on 07-17-2024 Pathology studyCleveland Clinic Hillcrest Hospital Other Platelet adequacy [Presence] in Blood by Light microscopyOrdered By: Indra Guillory on 65-61-7061Atazkikxc LM Ql (Bld) Platelet adequacy [Presence] in Blood by Light microscopyNoWilson Street HospitalPlatelet mean volume Auto (Bld) [Entitic vol]Ordered By: Indra Guillory on 73-05-3031Orsuhbuy mean volume (Bld) [Entitic vol] Platelet mean volume [Entitic volume] in Blood by Automated countHigh6.6-10.1 [facility]st HospitalPlatelet morphology finding [Identifier] in BloodOrdered By: Indra Guillory on 01-98-2404Uidsqxwg morphology finding Nom (Bld)Platelet morphology finding [Identifier] in BloodNoWilson Street HospitalPlatelets Auto (Bld) [#/Vol]Ordered By: Indra Guillory on 56-93-9072Jdfiddspb (Bld) [#/Vol]Platelets [#/volume] in Blood by Automated oqsdz169-449HndyzbluqCleveland Clinic Hillcrest HospitalPoikilocytosis [Presence] in Blood by Light microscopyOrdered By: Indra Guillory on 07-17-2024 Poikilocytosis LM Ql (Bld)Poikilocytosis [Presence] in Blood by Light microscopy [facility] HospitalPolychromasia [Presence] in Blood by Light microscopyOrdered By: Indra Guillory on 42-25-9810Tnpjbfztfxniw LM Ql (Bld) Polychromasia [Presence] in Blood by Light microscopyCleveland Clinic Hillcrest HospitalPotassium [Moles/volume] in Serum or PlasmaOrdered By: Indra Guillory on 35-24-4517Rtmqeuwim [Moles/Vol]Potassium [Moles/volume] in Serum or Plasma 3.5-5.1[facility] HospitalProtein [Mass/volume] in Serum or Plasma Ordered By: Indra Guillory on 35-86-0818Mndagrs [Mass/Vol]Protein [Mass/volume] in Serum or Plasma6.4-8.9[facility] Prothrombin Time INRon 33-41-9328JHW Coag (PPP) [Relative time]1.3 {INR}Normal [facility] Physician GroupComment on above:Result Comment: INR Therapeutic [...] Care testing ,PT Coag (PPP) [Time]14.5 sHigh9.0-12.9The [facility] Physician GroupComment on above:Result Comment: A hematocrit value greater than 55% may lead to inaccurate results in coagulation testing. Patients having hematocrit values >55% require a special collection tube for coagulation studies. Please contact the laboratory at [phone] for redraw instructions.Performed By: #### GLULS #### Point of Care testing ,Prothrombin time (PT)Ordered By: Indra Guillory on 54-19-5236MR Coag (PPP) [Time]Prothrombin time (PT)High9.0-12.9[facility]st HospitalComment on above:A hematocrit value greater than 55% may lead to inaccurate results in coagulation testing. Patientshaving hematocrit values >55% require a special collection tube for coagulation studies. Please contact the laboratory at [phone] for redraw instructions.RBC Auto (Bld) [#/Vol]Ordered By: Indra Guillory on 99-49-8438MJI (Bld) [#/Vol]Erythrocytes [#/volume] in Blood by Automated count3.90-5.60[facility]st HospitalRespiratory (Upper) Panel, PCRon 49-75-6609Dnkfsbwdmxj (Upper) Panel, PCRResults called at 0548 on [...] Influenza A H3 Blank Space PERFORMED BY: [facility] [address] [place] [address] PATHOLOGIST CODING CLERKS SUPERVISOR ANDRE PERALTA M.D.NormalThe [facility] Physician GroupComment on above: Performed By: #### GLULS #### Point of Care testing ,Respiratory pathogens DNA and RNA panel - Nasopharynx by ANASTASIA with non-probe detectionOrdered By: Indra Guillory on 73-66-6369Jqdezkoyfxp pathogens DNA and RNA panel ANASTASIA+non-probe (Nph)Respiratory pathogens DNA and RNA panel - Nasopharynx by ANASTASIA with non-probe detectionCleveland Clinic Hillcrest Hospital Respiratory pathogens DNA and RNA panel ANASTASIA+non-probe (Nph)Respiratory pathogens DNA and RNA panel - Nasopharynx by ANASTASIA with non-probe detectionOhio State Health Systemchistocytes [Presence] in Blood by Light microscopy Ordered By: Indra Guillory on 66-79-3359Qdtwkihrqrkb LM Ql (Bld) Schistocytes [Presence] in Blood by Light microscopyOhio State Health Systemegmented neutrophils/100 WBC Manual cnt (Bld)Ordered By: Indra Guillory on 66-94-4069Iikuoyxdp neutrophils/100 WBC (Bld)Manual blood segmented neutrophils/100 htgxwudrveZsur73-59HcburiqtzOhio State Health Systemerum or plasma albumin/globulin mass ratioOrdered By: Indra Guillory on 07-17-2024 Albumin/Globulin [Mass ratio]Serum or plasma albumin/globulin mass ratio [facility] State Health Systemerum or plasma anion gap determinationOrdered By: Indra Guillory on 56-60-5496Vodif gap [Moles/Vol]Serum or plasma anion gap determination6.0-15.0Ohio State Health Systemodium [Moles/volume] in Serum or PlasmaOrdered By: Indra Guillory on 85-47-7493Icbllc [Moles/Vol]Sodium [Moles/volume] in Serum or AgatizMyu264-130UzhuqssotCleveland Clinic Hillcrest HospitalTarget cells [Presence] in Blood by Light microscopyOrdered By: Indra Guillory on 16-09-9318Lextkl cells LM Ql (Bld)Target cellsCleveland Clinic Hillcrest HospitalUrea nitrogen [Mass/volume] in Serum or PlasmaOrdered By: Indra Guillory on 51-11-8113Myck nitrogen [Mass/Vol]Urea nitrogen [Mass/volume] in Serum or Plasma7C[facility] Clinic Hillcrest HospitalWBC Auto (Bld) [#/Vol]Ordered By: Indra Guillory on 10-70-8531HCS (Bld) [#/Vol] Leukocytes [#/volume] in Blood by Automated count4.1-10.5[facility] HospitalaPTT in Platelet poor plasma by Coagulation assayOrdered By: Indraalexandria Guillory on 17-77-2921wDEB Coag (PPP) [Time]Activated partial thromboplastin time (aPTT) in platelet poor plasma by coagulation a25.1-36.5 [facility] HospitalComment on above:A hematocrit value greater than 55% may lead to inaccurate results in coagulation testing. Patientshaving hematocrit values >55% require a special collection tube for coagulation studies. Please contact the laboratory at [phone] for redraw instructions. B-Type Natriuretic Peptideon 95-35-1034Lpyknmrksdq peptide B (Bld) [Mass/Vol] 2052.0 pg/mLHigh5-100The [facility] Physician GroupComment on above:Result Comment: PERFORMED BY: [facility] [address] [place] [address] PATHOLOGIST CODING CLERKS SUPERVISOR ANDRE PERALTA M.D.Performed By: #### PT, BMP, BNP, HS TROP, CK, CBC ####[facility] [address] [place] [address] USABasic Metabolic Panelon 59-12-6669Itseo gap [Moles/Vol]10.2 mmol/LNormal6.0-15.0The [facility] Physician [facility] HospitalComment on above:Performed By: #### PT, BMP, BNP, HS TROP, CK, CBC ####[address] [place] [address] USACalcium [Mass/Vol]8.8 mg/dLNormal8.6-10.3[facility] Comment on above:Performed By: #### PT, BMP, BNP, HS TROP, CK, CBC ####[place] [address] USAChloride [Moles/Vol] 99 mmol/OUvsflb67-178Wew [facility] Physician [facility] Care HospitalComment on above:Performed By: #### PT, BMP, BNP, HS TROP, CK, CBC ####[place] [address] USACO2 [Moles/Vol]28.0 mmol/IRwnuyj46.0-31.0The [facility] Physician GroupComment on above:Performed By: #### PT, BMP, BNP, HS TROP, CK, CBC ####[place] [address] USACreatinine [Mass/Vol]0.82 mg/dLNormal0.70-1.30The [facility] Physician [facility] Care HospitalComment on above:Performed By: #### PT, BMP, BNP, HS TROP, CK, CBC ####[place] [address] [place] Creatinine Clr Calc Ibdtftxd52.91NormalThe [facility] Physician [facility]er[facility] Critical Care HospitalComment on above:Result Comment: PERFORMED BY: [facility] [address] [place] [address] PATHOLOGIST CODING CLERKS SUPERVISOR ANDRE PERALTA M.D.Performed By: #### PT, BMP, BNP, HS TROP, CK, CBC ####[place] [address] [place] GFR/1.73 sq M.predicted MDRD (S/P/Bld) [Vol rate/Area]mL/min/{1.73_m2}NormalThe [facility] Medical CenterComment on above:Performed By: #### PT, BMP, BNP, HS TROP, CK, CBC ####[place] [address] USAGlucose [Mass/Vol]191 mg/nMFfen56-249Gjt [facility]ician [facility] Comment on above:Result Comment: Random Glucose Reference Range is dependent on time and content of last meal. Glucose of more than 200 mg/dL in a nonstressed, ambulatory subject supports the diagnosis of Diabetes Mellitus. ADA recommended reference rangePerformed By: #### PT, BMP, BNP, HS TROP, CK, CBC ####[place] [address] [place] Potassium [Moles/Vol]4.2 mmol/LNormal3.5-5.1The [facility] Physician GroupComment on above:Performed By: #### PT, BMP, BNP, HS TROP, CK, CBC ####[place] [address] USASodium [Moles/Vol]133 mmol/QRuj944-194Yzk [facility] Physician GroupComment on above:Performed By: #### PT, BMP, BNP, HS TROP, CK, CBC ####[address] [place] [address] USAUrea nitrogen [Mass/Vol]18 mg/dLNormal7-25The [facility] Physician GroupComment on above:Performed By: #### PT, BMP, BNP, HS TROP, CK, CBC ####[place] [address] USABasophils Auto (Bld) [#/Vol]Ordered By: PROVIDER TEMP on 07-16-2024 Basophils (Bld) [#/Vol]Automated basophil count0.0-0.2[facility] HospitalBasophils/100 WBC Auto (Bld)Ordered By: PROVIDER TEMP on 07-16-2024 Basophils/100 WBC (Bld)Automated basophil %.[facility] HospitalCT angio chest PE protocolon 26-96-8771LC angio chest PE protocolSCCI HOSPITAL LIMA [address] [place] [address] CT Scan Report Signed Patient: Manolo Roche MR#: [id number] 353 : 1935 Acct:[id number] Age/Sex: 89 / M ADM Date: 07/16/24 Loc: ER Room: Type: [facility] ER Attending Dr: Copies to: Bertin Smith [...] Sergei Valentin M.D.07/16/2024 4:48 PM Dictation Location: [place] [address] Transcribed By: ERIBERTO 07/16/24 2358 Dictated By: Sergei Valentin II, MD 07/16/24 1636 Signed By: 07/16/24 0128[facility] Physician GroupCalcium [Mass/volume] in Serum or PlasmaOrdered By: PROVIDER TEMP on 37-68-5536Mpcazro [Mass/Vol]Calcium [Mass/volume] in Serum or Plasma8.6-10.3[facility] HospitalCarbon dioxide, total [Moles/volume] in Serum or PlasmaOrdered By: PROVIDER TEMP on 45-07-3592JE7 [Moles/Vol]Carbon dioxide, total [Moles/volume] in Serum or Plasma 21.0-31.0[facility] HospitalChloride [Moles/volume] in Serum or PlasmaOrdered By: PROVIDER TEMP on 62-12-8650Rsrxhhdv [Moles/Vol]Chloride [Moles/volume] in Serum or Seeomb89-063LwflefhsxCleveland Clinic Hillcrest HospitalComplete Blood Count Auto Diffon 65-99-8565Mnikncqzs (Bld) [#/Vol]0.1 10*3/uLNormal 0.0-0.2The [facility] Physician GroupComment on above:Result Comment: PERFORMED BY: [facility] [address] [place] [address] PATHOLOGIST CODING CLERKS SUPERVISOR ANDRE PERALTA M.D.Performed By: #### PT, BMP, BNP, HS TROP, CK, CBC ####[place] [address] [place] Basophils/100 WBC (Bld)0.8 %Normal.The [facility] Physician GroupComment on above:Performed By: #### PT, BMP, BNP, HS TROP, CK, CBC ####[place] [address] USAEosinophils (Bld) [#/Vol]0.2 10*3/uLNormal0.0-0.45The [facility] Physician GroupComment on above:Performed By: #### PT, BMP, BNP, HS TROP, CK, CBC ####[place] [address] USAEosinophils/100 WBC (Bld)2.7 %Normal.The [facility] Physician GroupComment on above:Performed By: #### PT, BMP, BNP, HS TROP, CK, CBC ####[place] [address] USAErythrocyte distribution width (RBC) [Ratio]19.9 %High12.0-14.8The [facility] Physician GroupComment on above:Performed By: #### PT, BMP, BNP, HS TROP, CK, CBC ####[place] [address] USAHematocrit (Bld) [Volume fraction]35.8 %Low38.8-50.0The [facility] Physician GroupComment on above:Performed By: #### PT, BMP, BNP, HS TROP, CK, CBC ####[address] Hemoglobin (Bld) [Mass/Vol]11.7 g/dLLow13.0-17.0The [facility] Comment on above:Performed By: #### PT, BMP, BNP, HS TROP, CK, CBC ####[place] [address] USALymphocytes (Bld) [#/Vol]1.4 10*3/uLNormal1.00-4.8The [facility] Physician GroupComment on above: Performed By: #### PT, BMP, BNP, HS TROP, CK, CBC ####[place] [address] USALymphocytes/100 WBC (Bld)18.9 %Normal .The [facility] Physician GroupComment on above:Performed By: #### PT, BMP, BNP, HS TROP, CK, CBC ####[address]H (RBC) [Entitic mass]25.9 pgLow27.5-35.2The [facility] Physician GroupComment on above:Performed By: #### PT, BMP, BNP, HS TROP, CK, CBC ####[address] StreetMCV (RBC) [Entitic vol]79.7 fLLow83.5-101The [facility] Physician GroupComment on above:Performed By: #### PT, BMP, BNP, HS TROP, CK, CBC ####[place] [id number] USAMean Corpuscular HGB Conc32.5 g/mEJdwnsd72.5-35.6The [facility] Physician GroupComment on above:Performed By: #### PT, BMP, BNP, HS TROP, CK, CBC ####[place] [address] USAMonocytes (Bld) [#/Vol]0.9 10*3/uLHigh0.0-0.8The [facility] Physician GroupComment on above:Performed By: #### PT, BMP, BNP, HS TROP, CK, CBC ####[place] [address] USAMonocytes/100 WBC (Bld)17.82 %Normal0.00-20.00The [facility] Physician GroupComment on above:Result Comment: For adults in ED, MDW > 20.0 may be associated with a higher risk of sepsis during the first 12 hrs of hospital admissionPerformed By: #### PT, BMP, BNP, HS TROP, CK, CBC ####[place] [address] USAMonocytes/100 WBC (Bld)12.8 %Normal.The [facility] Physician GroupComment on above:Performed By: #### PT, BMP, BNP, HS TROP, CK, CBC ####[place] [address] [place] Neutrophils (Bld) [#/Vol]4.7 10*3/uLNormal1.8-7.7The [facility] Comment on above:Performed By: #### PT, BMP, BNP, HS TROP, CK, CBC ####[place] [id number] USANeutrophils/100 WBC (Bld)64.8 %Normal.The [facility] Physician GroupComment on above:Performed By: #### PT, BMP, BNP, HS TROP, CK, CBC ####[place] [id number] USANRBC%0.2 /100{WBC}Normal0-0.5The [facility] Physician GroupComment on above:Performed By: #### PT, BMP, BNP, HS TROP, CK, CBC ####[address] Platelet mean volume (Bld) [Entitic vol]10.9 fLHigh6.6-10.1The [facility] Physician GroupComment on above:Performed By: #### PT, BMP, BNP, HS TROP, CK, CBC ####[address] Platelets (Bld) [#/Vol]210 10*3/uJVclhwj098-169Ddi [facility] Comment on above:Performed By: #### PT, BMP, BNP, HS TROP, CK, CBC ####[place] [address] USARBC (Bld) [#/Vol] 4.50 10*6/uLNormal3.90-5.60The [facility] Physician GroupComment on above: Performed By: #### PT, BMP, BNP, HS TROP, CK, CBC ####[place] [address] USAWBC (Bld) [#/Vol]7.2 10*3/uLNormal 4.1-10.5The [facility] Physician GroupComment on above:Performed By: #### PT, BMP, BNP, HS TROP, CK, CBC ####[place] [address] USACreatine Kinaseon 16-83-2571YH [Catalytic activity/Vol] 136 U/KHrpaia98-954Nps [facility] Physician GroupComment on above:Performed By: #### PT, BMP, BNP, HS TROP, CK, CBC ####[place] [address] USACreatine kinase [Enzymatic activity/volume] in Serum or PlasmaOrdered By: PROVIDER TEMP on 07-01-1947GX [Catalytic activity/Vol] Creatine kinase [Enzymatic activity/volume] in Serum or Zswytm81-610HvlpnmzusCleveland Clinic Hillcrest HospitalCreatinine [Mass/volume] in Serum or PlasmaOrdered By: PROVIDER TEMP on 17-42-8794Tubxvwptcg [Mass/Vol]Creatinine [Mass/volume] in Serum or Plasma0.70-1.30[facility] HospitalECG 12 lead ECGon 48-39-1364TDX 12 [place] [address] Electrocardiograph Report Signed Patient: Manolo Roche MR#: [id number] [birth year] : 1935 Acct:[id number] Age/Sex: 89 / M ADM Date: 07/16/24 Loc: Room: [address] [place] [address] Type: ADM INOo Attending Dr: Indra Guillory [...] Atrial-paced rhythm Confirmed by Bertin Smith DO ([id number]) on 07/16/2024 8:00:21 PM Referred By: Electronically Signed By: Bertin Smith DO Transcribed By: MUS Signed By Bertin Smith DO [address] [place] [address] Physician GroupECG 12 lead [facility] [address] [place] [id number] Electrocardiograph Report Signed Patient: Manolo Roche MR#: [id number] [birth year] : 1935 Acct:[id number] Age/Sex: 89 / M ADM Date: 07/16/24 Loc: 3T Room: [address] [place] [address] Type: ADM INOo Attending Dr: Indra Guillory [...] Atrial-paced rhythm Confirmed by Bertin Smith DO ([id number]) on 07/16/2024 8:01:11 PM Referred By: Electronically Signed By: Bertin Smith DO Transcribed By: MUS Signed By Bertin Smith DO [address] [place] [address] Physician GroupEosinophils Auto (Bld) [#/Vol] Ordered By: PROVIDER TEMP on 19-63-7014Bqbifnxtwyh (Bld) [#/Vol]Automated eosinophil count0.0-0.45[facility] HospitalEosinophils/100 WBC Auto (Bld)Ordered By: PROVIDER TEMP on 39-52-8355Cjbqjkbtxlq/100 WBC (Bld) Automated eosinophil %.[facility] HospitalErythrocyte distribution width Auto (RBC) [Ratio]Ordered By: PROVIDER TEMP on 11-31-9801Zfnghjrsmlo distribution width (RBC) [Ratio]Erythrocyte distribution width [Ratio] by Automated yeunjIpaq40.0-14.8[facility] HospitalGlucose Glucometer (BldC) [Mass/Vol]Ordered By: Indra Guillory on 29-05-7432Qzwvxiv [Mass/Vol] Capillary blood glucose measurement by glucometer (mass/volume)[facility] HospitalComment on above:Random Glucose Reference Range is dependent on time and content of last meal. Glucose of more than 200 mg/dL in a nonstressed, ambulatory subject supports the diagnosis of Diabetes Mellitus. Glucose Poct Glucometerson 82-52-1604Hcymblo [Mass/Vol]327 mg/dLBaptist Health Doctors Hospital Physician GroupComment on above:Result Comment: Random Glucose Reference Range is dependent on time and content of last meal. Glucose of more than 200 mg/dL in a nonstressed, ambulatory subject supports the diagnosis of Diabetes Mellitus. PERFORMED BY: [facility] [address] [place] [address] PATHOLOGIST CODING CLERKS SUPERVISOR MOHAMED M EL-FAKHARANY M.D.Performed By: #### GLULS #### Point of Care testing ,Glucose [Mass/volume] in Serum or PlasmaOrdered By: PROVIDER TEMP on 07-16-2024 Glucose [Mass/Vol]Glucose [Mass/volume] in Serum or VsnlvhLmdg52-673GkkycxwjnCleveland Clinic Hillcrest HospitalComment on above:ADA recommended reference rangeRandom Glucose Reference Range is dependent on time and content of last meal. Glucose of more than 200 mg/dL in a nonstressed, ambulatory subject supports the diagnosisof Diabetes Mellitus.Hematocrit Auto (Bld) [Volume fraction]Ordered By: PROVIDER TEMP on 30-19-5310Iwjlrqvgtz (Bld) [Volume fraction]Hematocrit [Volume Fraction] of Blood by Automated hhsacXtq96.8-50.0[facility] HospitalHemoglobin [Mass/volume] in BloodOrdered By: PROVIDER TEMP on 07-16-2024 Hemoglobin (Bld) [Mass/Vol]Hemoglobin [Mass/volume] in HwdjjMdg28.0-17.0 [facility] HospitalINR in Platelet poor plasma by Coagulation assayOrdered By: PROVIDER TEMP on 75-84-8938ZQA Coag (PPP) [Relative time]INR in Platelet poor plasma by Coagulation assayCleveland Clinic Hillcrest Hospital Comment on above:INR Therapeutic Range A) Pre- [...] by Automated counOrdered By: PROVIDER TEMP on 13-25-5580CRB corrected for nucl RBC Auto (Bld) [#/Vol]Leukocytes [#/volume] corrected for nucleated erythrocytes in Blood by Automated coun4.1-10.5[facility] Lymphocytes Auto (Bld) [#/Vol]Ordered By: PROVIDER TEMP on 59-70-6287Letovaspnee (Bld) [#/Vol]Lymphocytes [#/volume] in Blood by Automated count1.00-4.8 [facility] HospitalLymphocytes/100 WBC Auto (Bld)Ordered By: PROVIDER TEMP on 81-45-8879Uxbwiwcoruc/100 WBC (Bld)Lymphocytes/100 leukocytes in Blood by Automated count.[facility] HospitalMCH Auto (RBC) [Entitic mass]Ordered By: PROVIDER TEMP on 14-25-9329ZGI (RBC) [Entitic mass]MCH [Entitic mass] by Automated yvvkdFpc40.5-35.2[facility] MCHC Auto (RBC) [Mass/Vol]Ordered By: PROVIDER TEMP on 76-78-2300SHBP (RBC) [Mass/Vol]MCHC [Mass/volume] by Automated count32.5-35.6[facility] HospitalMCV Auto (RBC) [Entitic vol]Ordered By: PROVIDER TEMP on 38-32-6814PVK (RBC) [Entitic vol]MCV [Entitic volume] by Automated countLow 83.5-101[facility] HospitalMonocyte distribution width [Entitic volume] in Blood by AutomatedOrdered By: PROVIDER TEMP on 12-19-3443Nuwymwgs distribution width Auto (Bld) [Entitic vol]Monocyte distribution width [Entitic volume] in Blood by Automated0.00-20.00[facility] HospitalComment on above:For adults in ED, MDW > 20.0 may be associated with a higher risk of sepsis during the first 12 hrs of hospital admissionMonocytes Auto (Bld) [#/Vol] Ordered By: PROVIDER TEMP on 03-25-3567Zwuxubsql (Bld) [#/Vol]Automated blood monocyte countHigh0.0-0.8[facility] HospitalMonocytes/100 WBC Auto (Bld)Ordered By: PROVIDER TEMP on 35-43-3981Zhibiqmoh/100 WBC (Bld)Automated monocyte %.[facility] HospitalNatriuretic peptide B [Mass/Vol] Ordered By: PROVIDER TEMP on 16-57-6484Lnuyiumjayz peptide B (Bld) [Mass/Vol]BNP ser/plasHigh5-100[facility] HospitalNeutrophils Auto (Bld) [#/Vol]Ordered By: PROVIDER TEMP on 09-98-1835Xpicqmzhzje (Bld) [#/Vol] Neutrophils [#/volume] in Blood by Automated count1.8-7.7[facility] HospitalNeutrophils/100 WBC Auto (Bld)Ordered By: PROVIDER TEMP on 82-35-9128Lbkuplrbdsg/100 WBC (Bld)Automated neutrophil %.[facility] HospitalNo Panel InformationOrdered By: PROVIDER TEMP on 07-16-2024 Estimated GFR (CKD-EPI)> 60.0 mL/MinCleveland Clinic Hillcrest HospitalPharmacy Creatinine Clearance (Chem60.91[facility] HospitalNucleated erythrocytes [Presence] in Blood by Automated countOrdered By: PROVIDER TEMP on 53-60-8445Gkvlrxqkk RBC Auto Ql (Bld)Nucleated erythrocytes [Presence] in Blood by Automated count0-0.5[facility] HospitalPlatelet mean volume Auto (Bld) [Entitic vol]Ordered By: PROVIDER TEMP on 81-56-6183Pcywxkwr mean volume (Bld) [Entitic vol]Platelet mean volume [Entitic volume] in Blood by Automated countHigh6.6-10.1[facility] HospitalPlatelets Auto (Bld) [#/Vol]Ordered By: PROVIDER TEMP on 00-06-6435Ggngjmmtj (Bld) [#/Vol]Platelets [#/volume] in Blood by Automated jtbir573-077RarbxeaacCleveland Clinic Hillcrest Hospital Potassium [Moles/volume] in Serum or PlasmaOrdered By: PROVIDER TEMP on 94-34-8433Mmiossxtg [Moles/Vol]Potassium [Moles/volume] in Serum or Plasma 3.5-5.1[facility] HospitalProthrombin Time INRon 76-46-5349SJE Coag (PPP) [Relative time]1.2 {INR}NormalThe [facility] Physician GroupComment on above:Result Comment: INR Therapeutic [...] heart valves: 3 - 4.5 PERFORMED BY: [facility] [place] [address] PATHOLOGIST CODING CLERKS SUPERVISOR ANDRE PERALTA M.D.Performed By: #### PT, BMP, BNP, HS TROP, CK, CBC ####[facility] [address] [place] [address] USAPT Coag (PPP) [Time]14.3 sHigh9.0-12.9The [facility] Physician GroupComment on above: Result Comment: A hematocrit value greater than 55% may lead to inaccurate results in coagulation testing. Patients having hematocrit values >55% require a special collection tube for coagulation studies. Please contact the laboratory at [phone] for redraw instructions.Performed By: #### PT, BMP, BNP, HS TROP, CK, CBC ####[facility] [address] [place] [address] USAProthrombin time (PT) Ordered By: PROVIDER TEMP on 75-52-0073YC Coag (PPP) [Time]Prothrombin time (PT) High9.0-12.9[facility] Hill[facility]st HospitalComment on above:A hematocrit value greater than 55% may lead to inaccurate results in coagulation testing. Patientshaving hematocrit values >55% require a special collection tube for coagulation studies. Please contact the laboratory at [phone] for redraw instructions.RBC Auto (Bld) [#/Vol]Ordered By: PROVIDER TEMP on 07-46-5541ZIT (Bld) [#/Vol]Erythrocytes [#/volume] in Blood by Automated count3.90-5.60 [place] [facility] Systemerum or plasma anion gap determinationOrdered By: PROVIDER TEMP on 23-59-1915Wsztn gap [Moles/Vol]Serum or plasma anion gap determination6.0-15.0[facility] Health Systemodium [Moles/volume] in Serum or PlasmaOrdered By: PROVIDER TEMP on 21-86-6586Iqgqcc [Moles/Vol]Sodium [Moles/volume] in Serum or DiyrjlFon668-548GxuhvztpkCleveland Clinic Hillcrest Hospital Troponin I High Sensitivityon 92-71-4894Jsdwelyz I High Qfrvcjwcpap02.4 pg/mL High0.0-20.0[facility] Physician GroupComment on above:Result Comment: PERFORMED BY: [facility] [address] [place] [address] PATHOLOGIST CODING CLERKS SUPERVISOR ANDRE PERALTA M.D.Performed By: #### GLULS #### Point of Care testing ,Troponin I High Dkflpdgvuvh68.1 pg/mLHigh0.0-20.0[facility] Comment on above:Result Comment: PERFORMED BY: [address] [address] PATHOLOGIST CODING CLERKS SUPERVISOR ANDRE PERALTA M.D.Performed By: #### PT, BMP, BNP, HS TROP, CK, CBC ####[facility] [place] [address] [facility] Troponin I.cardiac [Mass/volume] in Serum or Plasma by Detection limit <= 0.01 ng/Ordered By: Bertin Smith on 19-86-5253Jkskbbeh I.cardiac DL <= 0.01 ng/mL [Mass/Vol]Troponin I.cardiac [Mass/volume] in Serum or Plasma by Detection limit <= 0.01 ng/High0.0-20.0[facility] Hillcrest HospitalUrea nitrogen [Mass/volume] in Serum or PlasmaOrdered By: PROVIDER TEMP on 75-21-0565Xweb nitrogen [Mass/Vol]Urea nitrogen [Mass/volume] in Serum or Plasma7-[facility] Hill[facility]st HospitalWBC Auto (Bld) [#/Vol]Ordered By: PROVIDER TEMP on 53-73-1882HWF (Bld) [#/Vol]Leukocytes [#/volume] in Blood by Automated count 4.1-10.5FUC [facility] Chester HospitalX-ray reportOrdered By: Sergei Valentin on 33-87-6023Vjcfm reportSCCI HOSPITAL LIMA Main [address] [address] XRay Report Signed Patient: Manolo Roche MR#: [id number] : 1935 Acct:[id number] Age/Sex: 89 / M ADM Date: 5 [...] Sergei Valentin M.D.07/16/2024 1:03 PM Dictation Location: [facility]--17 Transcribed By: [facility] 07/16/24 1303 Dictated By: Sergei Valentin II, MD 07/16/24 1302 Signed By: 07/16/24 1303 [facility] Work Phone: XR chest 2V*on 91-76-8802MY chest 2V*[facility] [place] [address] XRay Report Signed Patient: Manolo Roche MR#: [id number] : 1935 Acct:[id number] Age/Sex: 89 / M ADM Date: 07/16/24 [...] II, MD 07/16/24 1302 Signed By: 07/16/24 1303[facility] Physician GroupCNPNon 88-34-8809HXMXYnhtzdqyn (DEMBHT) MANOLO ROCHE ([id number]) 1935 M Date Time Provider Department 07/13/24 GAYE MATA During your visit today, we recorded the following information about you: Gaye Mata, KARIN 07/13/2024 4:14 PM Signed In error Allergies As of Date: 07/13/2024 (No Known Allergies) Date Reviewed: 07/06/2024 Reviewed by: Ayana Zavala APRN.MOTOR ROOM CONTROLLER - Fully Assessed Prescriptions as of 07/13/2024 [...] 5,) crtg Change every 72 hours. - paolbk-gllgppet-cfvhspm (CREON) 24,000-76,000 -120,000 unit cpDR Take 2 [...] *06/23/2018 Encounter Status:Closed by GAYE MATA on 07/13/24[facility] (ELIZABETHLeeann) MANOLO ROCHE ([id number]) 1935 M Date Time Provider Department 07/13/24 GAYE MATALeeann During your visit today, we recorded the following information about you: Gaye Mata RN 07/13/2024 4:11 PM Signed Called and spoke with patient and to schedule Omnipod DASH to Omnipod 5 pump upgrade. Patient states he has the new pods and is wearing the Dexcom G6 CGM. Patient was scheduled for carb counting/insulin pump training for 07/25/24 at 1-3 pm at [facility]. Location. Patient's Mychart status is PENDING, invite resent via text and to create account. Email sent to [email or web address] with clinic address, time, date, and what [...] Date Reviewed: 07/06/2024 Reviewed by: Ayana Zavala APRN.MOTOR ROOM CONTROLLER - Fully Assessed Reason for Visit: Omnipod [...] 5,) crtg Change every 72 hours. - dxjyzd-bfldveru-llwluiu (CREON) 24,000-76,000 -120,000 unit cpDR Take 2 [...] *06/23/2018 Encounter Status:Closed by GAYE MATA on 07/13/24[facility] [id number] Visit (ENDOLN) FREDDYMANOLO OSBORN ([id number]) 1935 M Date Time Provider Department 07/06/24 [...] is DO Marie Rodriguez (Johny) [address] [address] History of Present Illness Manolo Roche is a 89 year old male presents today for evaluation of DM Type 1. Here with and son. 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 Per patient, this was done due to [...] (PROBIOTIC-10 ORAL) Take by mouth once daily. yiufwl-gqwntijn-qythfra (CREON) 24,000-76,000 -120,000 unit cpDR Take 2 capsules by mouth three times daily with meals. and 1 with snacks (8/day) Digestive Enzyme Mixtures lutein-zeaxanthin 25-5 mg cap Take by mouth once daily. Alternative Therapy - Antioxidant Omeprazole Magnesium 20 mg tablet Take 20 mg by mouth. Gastric Acid Secretion Communications Specialist - Proton Pump Inhibitors (PPIs) PARoxetine (PAXIL) 40 mg tablet Take 40 mg by mouth every morning. Antidepressant - Selective Serotonin Reuptake Inhibitors (SSRIs) tamsulosin (FLOMAX) 0.4 mg Take 0.4 mg by mouth. Prostatic Hypertrophy Agent - sxybr-5-Obgqasxndyjj Antagonists Physical Activity: No formal program Diet: CHO Controlled Diet SMBG Frequency of Monitoring: Four times a Day Summary of Personal CGM Findings: Dates worn: 06/22/24-07/05/24 CGM Type: Dexcom 1- CGM recording is adequate for interpretation. Worn 93% of (more content not included)...NormalSouthwest General Health Centeron 03-51-2744WUCMZxmrvyjbm (KALEY) MANOLO ROCHE ([id number]) 1935 M Date Time Provider Department 07/06/24 AYANA ZAVALA During your visit today, we recorded the following information about you: Ayana Zavala APRN.MOTOR ROOM CONTROLLER 07/06/2024 4:09 PM Signed Please update patient [...] for training. I reached out to our logistics lead and am waiting to hear back, but hopefully can get him set up for training in the next two weeks. Sheryl Ny MA 07/07/2024 4:31 PM Signed Called patient. No answer. [facility] to call [phone] to retrieve below message from Ayana Mckinney APRN.KALANI 07/13/2024 8:33 AM Signed Please call back patient to see how he is doing since we made adjustments to his regimen. I did reach out to the Omnipzoran national sales trainer at [facility] and she said she would be reaching out. I want to make sure this gets scheduled and that she was able to reach him. Buffy Arana MA 07/13/2024 4:06 PM Signed Called and spoke with patient He is doing well He stated that he just got scheduled with the national sales trainer today will call the office if [...] 5,) crtg Change every 72 hours. - ddgtpx-hsmkzwte-ylkjnxt (CREON) 24,000-76,000 -120,000 unit cpDR Take 2 [...] mucinous neoplasm) *06/23/2018 Encounter Status:Closed by AYANA ZAVAAL on 07/06/24[facility]Bu[facility] ON DEMANDon 24-85-9038Xhamxtp by an unspecified provider. [facility] CenterGLUCOSE, BLOOD (POC)on 14-85-5042Pqsfelk [Mass/Vol]76 mg/dL74 - 99 mg/dLAshtabula County Medical CenterComment on above:Location:[facility], [address] [place] [address], [address] The Accu-Chek Inform II glucose meter has [...] blood gas instrument) in the above situations. [facility] Medical CenterHEMOGLOBIN A1C (POC)on 64-73-3124EcS6i (Bld) [Mass fraction]10.1 %Abnormal4.3 - 5.6 %[facility]htab[facility] County Medical CenterComment on above:Location:[facility] [place] [facility], [address] [place] [address], [place], [place], [facility] Point of care (POC) Hemoglobin A1c (HGBA1C) [...] specific diabetes management situations: The POC device business analyst project manager provides a normal range of 4.2% to 6.5% for the HGBA1C POC test. However, the [place] [employer] guidelines indicate that patients with [...] cell lifespan. Interpretation and review of laboratory resultsAbnormalCOhioHealth Nelsonville Health CenterGlucose Glucometer (BldC) [Mass/Vol]Ordered By: Sushant Cordon on 46-96-4435Jqhfpvx [Mass/Vol]Capillary blood glucose measurement by glucometer (mass/volume)[facility] Medical CenterComment on above: Random Glucose Reference Range is dependent on time and content of last meal. Glucose of more than 200 mg/dL in a nonstressed, ambulatory subject supports the diagnosis of Diabetes Mellitus.Glucose Poct Glucometerson 86-10-9502Nvljbhm9 NormalAdventhealth Heart Of Florida Physician GroupComment on above:Result Comment: Glu2: Will Repeat TestPerformed By: #### GLULS #### Point of Care testing ,Karon NOTIFY VadimMemorial Hospital Pembroke Physician GroupComment on above: Performed By: #### GLULS #### Point of Care testing ,Dmiyymp2Btymfro MeterBaptist Health Doctors Hospital Physician GroupComment on above:Result Comment: PERFORMED BY: [address] [place] [address] PATHOLOGIST CODING CLERKS SUPERVISOR ANDRE PERALTA M.D.Performed By: #### GLULS #### Point of Care testing ,Glucose [Mass/Vol]572 mg/dLOff scale [facility] Physician GroupComment on above:Result Comment: Random Glucose Reference Range is dependent on time and content of last meal. Glucose of more than 200 mg/dL in a nonstressed, ambulatory subject supports the diagnosis of Diabetes Mellitus.Performed By: #### GLULS #### Point of Care testing ,Mxlprea3GbwgpyZrz [facility] Physician GroupComment on above:Result Comment: Glu2: Will Repeat TestPerformed By: #### GLULS #### Point of Care testing ,Uzcttln1VNHX NOTIFY /DeepikaMemorial Hospital Pembroke Physician GroupComment on above: Performed By: #### GLULS #### Point of Care testing ,Dbqekec6Hxxeiwt [facility] Physician GroupComment on above:Result Comment: PERFORMED BY: [address] [place] [address] PATHOLOGIST CODING CLERKS SUPERVISOR ANDRE PERALTA M.D.Performed By: #### GLULS #### Point of Care testing ,Glucose [Mass/Vol]552 mg/dLOff scale [facility] Physician GroupComment on above:Result Comment: Random Glucose Reference Range is dependent on time and content of last meal. Glucose of more than 200 mg/dL in a nonstressed, ambulatory subject supports the diagnosis of Diabetes Mellitus.Performed By: #### GLULS #### Point of Care testing ,Glucose [Mass/Vol]375 mg/dLBaptist Health Doctors Hospital Physician GroupComment on above: Result Comment: Random Glucose Reference Range is dependent on time and content of last meal. Glucose of more than 200 mg/dL in a nonstressed, ambulatory subject supports the diagnosis of Diabetes Mellitus. PERFORMED BY: [address] [place] [address] PATHOLOGIST CODING CLERKS SUPERVISOR ANDRE PERALTA M.D.Performed By: #### GLULS #### Point of Care testing ,Xdyothv9JgfpnwTdi [facility] Physician GroupComment on above:Result Comment: Glu2: Will Repeat Test PERFORMED BY: [address] [place] [address] PATHOLOGIST CODING CLERKS SUPERVISOR ANDRE PERALTA M.D.Performed By: #### GLULS #### Point of Care testing ,Glucose [Mass/Vol]437 mg/dLOff scale [facility] Physician GroupComment on above:Result Comment: Random Glucose Reference Range is dependent on time and content of last meal. Glucose of more than 200 mg/dL in a nonstressed, ambulatory subject supports the diagnosis of Diabetes Mellitus.Performed By: #### GLULS #### Point of Care testing ,Glucose [Mass/Vol]210 mg/dLBaptist Health Doctors Hospital Physician GroupComment on above: Result Comment: Random Glucose Reference Range is dependent on time and content of last meal. Glucose of more than 200 mg/dL in a nonstressed, ambulatory subject supports the diagnosis of Diabetes Mellitus. PERFORMED BY: [address] [place] [id number] PATHOLOGIST CODING CLERKS SUPERVISOR ANDRE PERALTA M.D.Performed By: #### GLULS #### Point of Care testing ,Glucose [Mass/Vol]332 mg/dLBaptist Health Doctors Hospital Physician GroupComment on above: Result Comment: Random Glucose Reference Range is dependent on time and content of last meal. Glucose of more than 200 mg/dL in a nonstressed, ambulatory subject supports the diagnosis of Diabetes Mellitus. PERFORMED BY: [place] [address] PATHOLOGIST CODING CLERKS SUPERVISOR ANDRE PERALTA M.D.Performed By: #### GLULS #### Point of Care testing ,No Panel InformationOrdered By: Sushant Cordon on 09-42-3732Zoyycof Glucose #2 CommentWill notify /BarryUC West Chester HospitalBedside Glucose #3 CommentCleaned meterCleveland Clinic Hillcrest HospitalBedside Glucose CommentSee commentCleveland Clinic Hillcrest HospitalComment on above:Glu2: Will Repeat TestAerobic Cultureon 61-07-1188Bhmcvqn CultureComment deep wound culture of abdominal wound [...] RESISTANT TO ALL B-LACTAM DRUGS. PERFORMED BY: [address] [place] [address] PATHOLOGIST CODING CLERKS SUPERVISOR ANDRE KeithThe [facility] Physician GroupComment on above: Performed By: #### GLULS #### Point of Care testing ,Anaerobic cultureOrdered By: Stephanie Sheridan on 46-95-0831Npdcevdx identified Anaer cx Nom (Unsp spec)Anaerobic cultureCleveland Clinic Hillcrest Hospital Bacteria identified Aer cx Nom (Unsp spec)Ordered By: Stephanie Sheridan on 99-01-8673Yzlwgxp CultureAbnoalCleveland Clinic Hillcrest HospitalGroup B Strep (Streptococcus agalactiae)Group B Strep (Streptococcus agalactiae)Abnormal [facility] Hill[facility]st HospitalGlucose Poct Glucometerson 12-88-1314Vsbeueh [Mass/Vol]134 mg/dLNoAtrium Health [facility] Physician GroupComment on above:Result Comment: Random Glucose Reference Range is dependent on time and content of last meal. Glucose of more than 200 mg/dL in a nonstressed, ambulatory subject supports the diagnosis of Diabetes Mellitus. PERFORMED BY: [place] [address] PATHOLOGIST CODING CLERKS SUPERVISOR ANDRE PERALTA M.D.Performed By: #### GLULS #### Point of Care testing ,Glucose [Mass/Vol]65 mg/dLNoAtrium Health [facility] Physician GroupComment on above: Result Comment: Random Glucose Reference Range is dependent on time and content of last meal. Glucose of more than 200 mg/dL in a nonstressed, ambulatory subject supports the diagnosis of Diabetes Mellitus. PERFORMED BY: [place] [address] PATHOLOGIST CODING CLERKS SUPERVISOR ANDRE PERALTA M.D.Performed By: #### GLULS #### Point of Care testing ,Xqizwfp0Gig0: Cleaned MeterNoAtrium Health [facility] Physician GroupComment on above: Result Comment: PERFORMED BY: [place] [address] PATHOLOGIST CODING CLERKS SUPERVISOR ANDRE PERALTA M.D.Performed By: #### GLULS ####Point of Care testing, Glucose [Mass/Vol]140 mg/dLNoAtrium Health [facility] Physician GroupComment on above: Result Comment: Random Glucose Reference Range is dependent on time and content of last meal. Glucose of more than 200 mg/dL in a nonstressed, ambulatory subject supports the diagnosis of Diabetes Mellitus.Performed By: #### GLULS ####Point of Care testing,Commemt1 Glu2: Cleaned MeterNoAtrium Health [facility] Physician GroupComment on above:Result Comment: PERFORMED BY: [address] [place] [address] PATHOLOGIST CODING CLERKS SUPERVISOR ANDRE PERALTA M.D.Performed By: #### GLULS ####Point of Care testing, Glucose [Mass/Vol]200 mg/dLNoAtrium Health [facility] Physician GroupComment on above: Result Comment: Random Glucose Reference Range is dependent on time and content of last meal. Glucose of more than 200 mg/dL in a nonstressed, ambulatory subject supports the diagnosis of Diabetes Mellitus.Performed By: #### GLULS ####Point of Care testing,Commemt1 NormalAdventhealth Heart Of Florida Physician GroupComment on above:Result Comment: Glu2: Will Repeat Test PERFORMED BY: [address] [address] PATHOLOGIST CODING CLERKS SUPERVISOR ANDRE PERALTA M.D.Performed By: #### GLULS #### Point of Care testing ,Glucose [Mass/Vol]425 mg/dLOff scale highAdventhealth Heart Of Florida Physician GroupComment on above:Result Comment: Random Glucose Reference Range is dependent on time and content of last meal. Glucose of more than 200 mg/dL in a nonstressed, ambulatory subject supports the diagnosis of Diabetes Mellitus.Performed By: #### GLULS #### Point of Care testing ,Gram stain microscopyOrdered By: Stephanie Sheridan on 29-47-9841Akltynkgqow observation Gram stain Nom (Unsp spec)Gram stain microscopyCleveland Clinic Hillcrest HospitalA1C with Estimated Average Gluon 80-27-6508Gxwzicv [Mass/Vol]255 mg/dLBaptist Health Doctors Hospital Physician GroupComment on above:Order Comment: ADD ON PER IFEANYI - PHLEBResult Comment: PERFORMED BY: [address] [place] [address] PATHOLOGIST CODING CLERKS SUPERVISOR ANDRE PERALTA M.D.Performed By: #### GLULS #### Point of Care testing ,HbA1c (Bld) [Mass fraction]10.5 %High4.3-5.6[facility] Comment on above:Order Comment: ADD ON PER IFEANYI - PHLEBResult Comment: Increased risk for diabetes: 5.7 - 6.4 diabetes: >6.4 glycemic control for adults with diabetes: <7.0Performed By: #### GLULS #### Point of Care testing ,Acanthocytes [Presence] in Blood by Light microscopyOrdered By: Sushant Cordon on 98-40-8195Gmyuzucuuzej LM Ql (Bld)Acanthocytes [Presence] in Blood by Light microscopyCleveland Clinic Hillcrest HospitalAnisocytosis LM Ql (Bld) Ordered By: Sushant Cordon on 02-20-3568Jqvvkjrserom Ql (Bld)Anisocytosis [Presence] in Blood by Light microscopyCleveland Clinic Hillcrest HospitalBasic Metabolic Panelon 29-63-4372Amnjr gap [Moles/Vol]10.4 mmol/LNormal6.0-15.0The [facility] Physician GroupComment on above:Performed By: #### GLULS #### Point of Care testing ,Calcium [Mass/Vol]9.0 mg/dLNormal8.6-10.3The [facility] Physician GroupComment on above:Result Comment: PERFORMED BY: [facility] [place] [address] PATHOLOGIST CODING CLERKS SUPERVISOR ANDRE PERALTA M.D.Performed By: #### GLULS #### Point of Care testing ,Chloride [Moles/Vol]103 mmol/AJsabmj02-715Okl [facility] Physician GroupComment on above:Performed By: #### GLULS #### Point of Care testing ,CO2 [Moles/Vol]28.0 mmol/MUociht46.0-31.0[facility] Physician GroupComment on above:Performed By: #### GLULS #### Point of Care testing ,Creatinine [Mass/Vol]0.96 mg/dLNormal0.70-1.30[facility] Comment on above:Performed By: #### GLULS #### Point of Care testing ,GFR/1.73 sq M.predicted MDRD (S/P/Bld) [Vol rate/Area]mL/min/{1.73_m2}NormalThe [facility] Physician GroupComment on above:Performed By: #### GLULS #### Point of Care testing ,Glucose [Mass/Vol]90 mg/mKGfdgse17-827Lww [facility] Physician [facility] Care HospitalComment on above:Result Comment: Random Glucose Reference Range is dependent on time and content of last meal. Glucose of more than 200 mg/dL in a nonstressed, ambulatory subject supports the diagnosis of Diabetes Mellitus. ADA recommended reference rangePerformed By: #### GLULS #### Point of Care testing ,Potassium [Moles/Vol]4.4 mmol/LNormal3.5-5.1[facility]ician [facility] Comment on above:Performed By: #### GLULS #### Point of Care testing ,Sodium [Moles/Vol]137 mmol/IHhvygj118-155Grz [facility] Physician [facility] Care HospitalComment on above:Performed By: #### GLULS #### Point of Care testing ,Urea nitrogen [Mass/Vol]22 mg/dLNormal7-25The [facility] Physician GroupComment on above:Performed By: #### GLULS #### Point of Care testing ,Basophils Auto (Bld) [#/Vol]Ordered By: Sushant Cordon on 06-19-2024 Basophils (Bld) [#/Vol]Automated basophil count0.0-0.2FUC [facility] HospitalBasophils/100 WBC Auto (Bld)Ordered By: Sushant Cordon on 39-62-3163Ytlfuqazc/100 WBC (Bld)Automated basophil %.[facility]st HospitalBlood estimated average glucose determination by estimation from glycated hemoglobinOrdered By: Sushant Cordon on 59-25-7585Lkrayzy glucose Estimated from glycated hemoglobin (Bld) [Mass/Vol]Glucose mean value [Mass/volume] in Blood Estimated from glycated hemoglobinCleveland Clinic Hillcrest HospitalBurr cells [Presence] in Blood by Light microscopyOrdered By: Sushant Cordon on 85-09-7282Unny cells LM Ql (Bld)Joppa cells [Presence] in Blood by Light microscopyCleveland Clinic Hillcrest HospitalCalcium [Mass/volume] in Serum or PlasmaOrdered By: Sushant Cordon on 93-81-8816Muddoiv [Mass/Vol]Calcium [Mass/volume] in Serum or Plasma8.6-10.3FUC [facility] Chester HospitalCarbon dioxide, total [Moles/volume] in Serum or PlasmaOrdered By: Sushant Cordon on 91-15-5115CY9 [Moles/Vol]Carbon dioxide, total [Moles/volume] in Serum or Cnzohm09.0-31.0[facility] Chloride [Moles/volume] in Serum or PlasmaOrdered By: Sushant Cordon on 20-93-7848Afdrller [Moles/Vol]Chloride [Moles/volume] in Serum or Avrofs41-232 [facility] HospitalCreatinine [Mass/volume] in Serum or Plasma Ordered By: Sushant Cordon on 61-44-3052Wmiiagtzza [Mass/Vol]Creatinine [Mass/volume] in Serum or Plasma0.70-1.30[facility] Eosinophils Auto (Bld) [#/Vol]Ordered By: Sushant Cordon on 06-19-2024 Eosinophils (Bld) [#/Vol]Automated eosinophil count0.0-0.45[facility]st HospitalEosinophils/100 WBC Auto (Bld)Ordered By: Sushant Cordon on 38-27-6972Wdmilywvyge/100 WBC (Bld)Automated eosinophil %.[facility] Hillcrest HospitalErythrocyte distribution width Auto (RBC) [Ratio]Ordered By: Sushant Cordon on 00-06-0308Upyswdzqeik distribution width (RBC) [Ratio] Erythrocyte distribution width [Ratio] by Automated udchnEfqu98.0-14.8[facility]st HospitalErythrocyte morphology finding [Identifier] in Blood Ordered By: Sushant Cordon on 61-75-5624GHV morphology finding Nom (Bld) RBC morphologyCleveland Clinic Hillcrest HospitalGlucose Poct Glucometerson 71-56-0240Ngewpwv [Mass/Vol]101 mg/dLNoAtrium Health [facility] Physician GroupComment on above:Result Comment: Random Glucose Reference Range is dependent on time and content of last meal. Glucose of more than 200 mg/dL in a nonstressed, ambulatory subject supports the diagnosis of Diabetes Mellitus. PERFORMED BY: [facility] [place] [address] PATHOLOGIST CODING CLERKS SUPERVISOR ANDRE PERALTA M.D.Performed By: #### GLULS #### Point of Care testing ,Glucose [Mass/volume] in Serum or PlasmaOrdered By: Sushant Cordon on 49-76-1205Mlpqjsp [Mass/Vol]Glucose [Mass/volume] in Serum or Rvdbmj30-961 [facility] HospitalComment on above:ADA recommended reference rangeRandom Glucose Reference Range is dependent on time and content of last meal. Glucose of more than 200 mg/dL in a nonstressed, ambulatory subject supports the diagnosisof Diabetes Mellitus.Hematocrit Auto (Bld) [Volume fraction]Ordered By: Sushant Cordon on 89-17-7990Mjcondmrjs (Bld) [Volume fraction]Hematocrit [Volume Fraction] of Blood by Automated spoalEhe25.8-50.0 [facility] HospitalHemoglobin A1c/Hemoglobin.total in BloodOrdered By: Sushant Cordon on 92-97-3239ZcV4k (Bld) [Mass fraction]Hemoglobin A1c percentageHigh4.3-5.6[facility] HospitalComment on above:Increased risk for diabetes: 5.7 - 6.4diabetes: >6.4glycemic control for adults with diabetes: <7.0Hemoglobin [Mass/volume] in BloodOrdered By: Sushant Cordon on 15-75-1615Jbenswavdx (Bld) [Mass/Vol]Hemoglobin [Mass/volume] in LpxavKff73.0-17.0[facility] HospitalHypochromia LM Ql (Bld)Ordered By: Sushant Cordon on 84-64-8038Dvqjoivatun Ql (Bld)Hypochromia [Presence] in Blood by Light microscopyCleveland Clinic Hillcrest HospitalINR in Platelet poor plasma by Coagulation assayOrdered By: Sushant Cordon on 53-28-0138EIE Coag (PPP) [Relative time]INR in Platelet poor plasma by Coagulation assayCleveland Clinic Hillcrest HospitalComment on above:INR Therapeutic Range A) Pre- and [...] by Automated counOrdered By: Sushant Cordon on 01-33-6245JJL corrected for nucl RBC Auto (Bld) [#/Vol]Leukocytes [#/volume] corrected for nucleated erythrocytes in Blood by Automated coun4.1-10.5[facility] HospitalLymphocytes Auto (Bld) [#/Vol]Ordered By: Sushant Cordon on 05-68-9082Dbbqzyawbub (Bld) [#/Vol]Lymphocytes [#/volume] in Blood by Automated count1.00-4.8[facility] HospitalLymphocytes/100 WBC Auto (Bld)Ordered By: Sushant Cordon on 28-36-4208Geywhjawahg/100 WBC (Bld)Lymphocytes/100 leukocytes in Blood by Automated count.[facility]H Auto (RBC) [Entitic mass]Ordered By: Sushant Crodon on 53-23-3244ZCK (RBC) [Entitic mass]MCH [Entitic mass] by Automated ctvbhKoa61.5-35.2[facility] HospitalMCHC Auto (RBC) [Mass/Vol]Ordered By: Sushant Cordon on 06-19-2024 MCHC (RBC) [Mass/Vol]MCHC [Mass/volume] by Automated count32.5-35.6FMemorial Health SystemV Auto (RBC) [Entitic vol]Ordered By: Sushant Cordon on 39-24-9158FYY (RBC) [Entitic vol]MCV [Entitic volume] by Automated uzjdeBkk16.5-101[facility] HospitalMacrocytes LM Ql (Bld)Ordered By: Sushant Cordon on 97-12-5428Jhkylapmea Ql (Bld)Macrocytes [Presence] in Blood by Light microscopyCleveland Clinic Hillcrest HospitalMicrocytes LM Ql (Bld)Ordered By: Sushant Cordon on 06-41-3222Twapjgfkir Ql (Bld)Microcytes [Presence] in Blood by Light microscopyC[facility] Clinic Hill[facility] Hospital Monocytes Auto (Bld) [#/Vol]Ordered By: Sushant Cordon on 06-19-2024 Monocytes (Bld) [#/Vol]Automated blood monocyte count0.0-0.8[facility] HospitalMonocytes/100 WBC Auto (Bld)Ordered By: Sushant Cordon on 69-25-2386Rvdohbovy/100 WBC (Bld)Automated monocyte %.[facility] HospitalNeutrophils Auto (Bld) [#/Vol]Ordered By: Sushant Cordon on 16-14-6418Oenlgfffwnp (Bld) [#/Vol]Neutrophils [#/volume] in Blood by Automated count1.8-7.7[facility] HospitalNeutrophils/100 WBC Auto (Bld) Ordered By: Sushant Cordon on 90-69-0177Qtoboqrhbsc/100 WBC (Bld)Automated neutrophil %.[facility] HospitalNo Panel InformationOrdered By: Sushant Cordon on 89-15-9240Wptknvanv GFR (CKD-EPI)> 60.0 mL/MinCleveland Clinic Hillcrest HospitalPharmacy Creatinine Clearance (ChemN/AFUC [facility] HospitalNucleated erythrocytes [Presence] in Blood by Automated count Ordered By: Sushant Cordon on 11-92-2048Ogcksajrb RBC Auto Ql (Bld) Nucleated erythrocytes [Presence] in Blood by Automated count0-0.5[facility] HospitalOvalocytes [Presence] in Blood by Light microscopyOrdered By: Sushant Cordon on 46-41-4675Jrvncotfdv LM Ql (Bld)Ovalocyte detection [facility] HospitalPartial Thromboplastin Timeon 66-03-8876nJCA Coag (Bld) [Time]29.4 vWrwbvu58.1-36.5The [facility] Physician GroupComment on above:Result Comment: A hematocrit value greater than 55% may lead to inaccurate results in coagulation testing. Patients having hematocrit values >55% require a special collection tube for coagulation studies. Please contact the laboratory at [phone] for redraw instructions. PERFORMED BY: [facility] [address] [place] [address] PATHOLOGIST CODING CLERKS SUPERVISOR ANDRE PERALTA M.D.Performed By: #### GLULS #### Point of Care testing ,Platelet adequacy [Presence] in Blood by Light microscopyOrdered By: Sushant Cordon on 73-85-3758Lhfdxhhlg LM Ql (Bld)Platelet adequacy [Presence] in Blood by Light microscopyMarymount HospitalPlatelet mean volume Auto (Bld) [Entitic vol]Ordered By: Sushant Cordon on 06-19-2024 Platelet mean volume (Bld) [Entitic vol]Platelet mean volume [Entitic volume] in Blood by Automated count6.6-10.1[facility] HospitalPlatelet morphology finding [Identifier] in BloodOrdered By: Sushant Cordon on 43-55-2679Spimleix morphology finding Nom (Bld)Platelet morphology finding [Identifier] in BloodNoWilson Street HospitalPlatelets Auto (Bld) [#/Vol]Ordered By: Sushant Cordon on 91-83-7965Jdilnvmpj (Bld) [#/Vol] Platelets [#/volume] in Blood by Automated cuqwr233-221NcvhabhokCleveland Clinic Hillcrest HospitalPoikilocytosis [Presence] in Blood by Light microscopyOrdered By: Sushant Cordon on 29-04-2290Nsbbqdefmghibh LM Ql (Bld)Poikilocytosis [Presence] in Blood by Light microscopyC[facility] Clinic Hill[facility] Hospital Potassium [Moles/volume] in Serum or PlasmaOrdered By: Sushant Cordon on 97-08-4702Euflemjkn [Moles/Vol]Potassium [Moles/volume] in Serum or Plasma 3.5-5.1[facility] HospitalProthrombin Time INRon 44-72-5747IDR Coag (PPP) [Relative time]1.1 {INR}NormalThe [facility] Physician GroupComment on above:Result Comment: INR Therapeutic [...] Care testing ,PT Coag (PPP) [Time]12.9 sNormal9.0-12.9The [facility] Physician GroupComment on above:Result Comment: A hematocrit value greater than 55% may lead to inaccurate results in coagulation testing. Patients having hematocrit values >55% require a special collection tube for coagulation studies. Please contact the laboratory at [phone] for redraw instructions.Performed By: #### GLULS #### Point of Care testing ,Prothrombin time (PT)Ordered By: Sushant Cordon on 75-49-7605MC Coag (PPP) [Time]Prothrombin time (PT)9.0-12.9[facility] Comment on above:A hematocrit value greater than 55% may lead to inaccurate results in coagulation testing. Patientshaving hematocrit values >55% require a special collection tube for coagulation studies. Please contact the laboratory at [phone] for redraw instructions.RBC Auto (Bld) [#/Vol]Ordered By: Sushant Cordon on 44-60-9685UET (Bld) [#/Vol]Erythrocytes [#/volume] in Blood by Automated count3.90-5.60[facility] Health Systemcan and CBCon 78-32-1212XqfptzzeamfkYtktiaudOjxwzyVic Firelands Physician GroupComment on above:Performed By: #### GLULS #### Point of Care testing ,Anisocytosis Ql (Bld)ModerateNoSelect Medical Specialty Hospital - Boardman, IncComment on above:Performed By: #### GLULS #### Point of Care testing ,Basophils (Bld) [#/Vol]0.1 10*3/uLNormal0.0-0.2[facility] Comment on above:Result Comment: PERFORMED BY: [facility] [place] [address] PATHOLOGIST CODING CLERKS SUPERVISOR ANDRE PERALTA M.D.Performed By: #### GLULS #### Point of Care testing ,Basophils/100 WBC (Bld)1.8 %Normal.The [facility] Physician GroupComment on above:Performed By: #### GLULS #### Point of Care testing ,Crenated RBCSlightNoAtrium Health [facility] Physician GroupComment on above:Performed By: #### GLULS #### Point of Care testing ,Eosinophils (Bld) [#/Vol]0.1 10*3/uLNormal0.0-0.45The [facility]ician [facility] Comment on above:Performed By: #### GLULS #### Point of Care testing ,Eosinophils/100 WBC (Bld)1.3 %Normal.The [facility] Physician GroupComment on above:Performed By: #### GLULS #### Point of Care testing ,Erythrocyte distribution width (RBC) [Ratio]20.5 %High12.0-14.8The [facility] Physician GroupComment on above:Performed By: #### GLULS #### Point of Care testing ,Hematocrit (Bld) [Volume fraction]34.1 %Low38.8-50.0The [facility] Physician GroupComment on above:Performed By: #### GLULS #### Point of Care testing ,Hemoglobin (Bld) [Mass/Vol]11.3 g/dLLow13.0-17.0[facility] Comment on above:Performed By: #### GLULS #### Point of Care testing ,HypochromasiaModerateBaptist Health Doctors Hospital Physician GroupComment on above: Performed By: #### GLULS #### Point of Care testing ,Lymphocytes (Bld) [#/Vol]3.5 10*3/uLNormal1.00-4.8[facility] Comment on above:Performed By: #### GLULS #### Point of Care testing ,Lymphocytes/100 WBC (Bld)44.3 %Normal.The [facility] Physician GroupComment on above:Performed By: #### GLULS #### Point of Care testing ,MacrocytosisSFormerly [facility] Physician GroupComment on above:Performed By: #### GLULS #### Point of Care testing ,MCH (RBC) [Entitic mass]25.5 pgLow27.5-35.2The [facility] Physician GroupComment on above:Performed By: #### GLULS #### Point of Care testing ,MCV (RBC) [Entitic vol]76.9 fLLow83.5-101The [facility] Physician GroupComment on above:Performed By: #### GLULS #### Point of Care testing ,Mean Corpuscular HGB Conc33.2 g/lKYqswdq93.5-35.6The [facility] Comment on above:Performed By: #### GLULS #### Point of Care testing ,MicrocytosisSFormerly [facility] Physician GroupComment on above:Performed By: #### GLULS #### Point of Care testing ,Monocytes (Bld) [#/Vol]0.6 10*3/uLNormal0.0-0.8[facility] Comment on above:Performed By: #### GLULS #### Point of Care testing ,Monocytes/100 WBC (Bld)7.0 %Normal.The [facility] Physician GroupComment on above:Performed By: #### GLULS #### Point of Care testing ,Neutrophils (Bld) [#/Vol]3.6 10*3/uLNormal1.8-7.7The [facility] Comment on above:Performed By: #### GLULS #### Point of Care testing ,Neutrophils/100 WBC (Bld)45.6 %Normal.The [facility] Physician GroupComment on above:Performed By: #### GLULS #### Point of Care testing ,NRBC%0.1 /100{WBC}Normal0-0.5The [facility] Physician GroupComment on above: Performed By: #### GLULS #### Point of Care testing ,OvalocytesSlightNoAtrium Health [facility] Physician GroupComment on above:Performed By: #### GLULS #### Point of Care testing ,Platelet EstimateNormalNormalNormMemorial Hospital Pembroke Physician GroupComment on above:Performed By: #### GLULS #### Point of Care testing ,Platelet mean volume (Bld) [Entitic vol]9.8 fLNormal6.6-10.1The [facility] Physician GroupComment on above:Performed By: #### GLULS #### Point of Care testing ,Platelet MorphologyNormalNormalNoAtrium Health [facility] Physician GroupComment on above:Result Comment: PERFORMED BY: [facility] [place] [address] PATHOLOGIST CODING CLERKS SUPERVISOR ANDRE PERALTA M.D.Performed By: #### GLULS #### Point of Care testing ,Platelets (Bld) [#/Vol]243 10*3/iNFgymvh802-263Dzs [facility] Comment on above:Performed By: #### GLULS #### Point of Care testing ,PoikilocytosisModerateNoAtrium Health [facility] Physician GroupComment on above: Performed By: #### GLULS #### Point of Care testing ,RBC (Bld) [#/Vol]4.43 10*6/uLNormal3.90-5.60The [facility] Comment on above:Performed By: #### GLULS #### Point of Care testing ,SchistocytesSlightBaptist Health Doctors Hospital Physician GroupComment on above:Performed By: #### GLULS #### Point of Care testing ,Target CellsSlightBaptist Health Doctors Hospital Physician GroupComment on above:Performed By: #### GLULS #### Point of Care testing ,WBC (Bld) [#/Vol]7.9 10*3/uLNormal4.1-10.5The [facility] Physician GroupComment on above:Performed By: #### GLULS #### Point of Care testing ,Schistocytes [Presence] in Blood by Light microscopyOrdered By: Sushant Cordon on 57-45-3926Ycxmjohkqhfj LM Ql (Bld)Schistocytes [Presence] in Blood by Light microscopyOhio State Health Systemerum or plasma anion gap determinationOrdered By: Sushant Cordon on 90-54-1235Nvsez gap [Moles/Vol] Serum or plasma anion gap determination6.0-15.0[facility] Sodium [Moles/volume] in Serum or PlasmaOrdered By: Sushant Cordon on 89-01-9853Lwqevo [Moles/Vol]Sodium [Moles/volume] in Serum or Uazxlp573-809 [facility] HospitalTarget cells [Presence] in Blood by Light microscopyOrdered By: Sushant Cordon on 50-89-9002Vdbbeb cells LM Ql (Bld) Target cellsCleveland Clinic Hillcrest HospitalUrea nitrogen [Mass/volume] in Serum or PlasmaOrdered By: Sushant oCrdon on 73-84-0882Qgcq nitrogen [Mass/Vol]Urea nitrogen [Mass/volume] in Serum or Plasma7-25[facility] HospitalWBC Auto (Bld) [#/Vol]Ordered By: Sushant Cordon on 40-25-4676ZML (Bld) [#/Vol]Leukocytes [#/volume] in Blood by Automated count 4.1-10.5[facility] HospitalaPTT in Platelet poor plasma by Coagulation assayOrdered By: Sushant Cordon on 33-61-2526pNLT Coag (PPP) [Time]Activated partial thromboplastin time (aPTT) in platelet poor plasma by coagulation a25.1-36.5[facility] HospitalComment on above:A hematocrit value greater than 55% may lead to inaccurate results in coagulation testing. Patientshaving hematocrit values >55% require a special collection tube for coagulation studies. Please contact the laboratory at [phone] for redraw instructions.Acanthocytes [Presence] in Blood by Light microscopyOrdered By: Jose Alfredo Brantley on 07-58-8322Tfymhijilxnd LM Ql (Bld)Acanthocytes [Presence] in Blood by Light microscopyCleveland Clinic Hillcrest HospitalAlanine aminotransferase [Enzymatic activity/volume] in Serum or PlasmaOrdered By: Jose Alfredo Brantley on 85-38-3332ALG [Catalytic activity/Vol]Alanine aminotransferase [Enzymatic activity/volume] in Serum or Plasma7-52[facility] HospitalAlbumin [Mass/volume] in Serum or Plasma by Bromocresol green (BCG) dye binding methoOrdered By: Jose Alfredo Brantley on 78-97-0187Bybnrgs BCG dye [Mass/Vol] Albumin [Mass/volume] in Serum or Plasma by Bromocresol green (BCG) dye binding methoLow3.5-5.7[facility] HospitalAlkaline phosphatase [Enzymatic activity/volume] in Serum or PlasmaOrdered By: Jose Alfredo Brantley on 17-52-3849BEI [Catalytic activity/Vol]Alkaline phosphatase [Enzymatic activity/volume] in Serum or AcmhxqHxvp40-321DzhxpnnrvCleveland Clinic Hillcrest HospitalAnisocytosis LM Ql (Bld)Ordered By: Jose Alfredo Brantley on 65-57-9884Ddzrdpnsgvzf Ql (Bld)Anisocytosis [Presence] in Blood by Light microscopyC[facility] Clinic Hill[facility] Hospital Aspartate aminotransferase [Enzymatic activity/volume] in Serum or PlasmaOrdered By: Jose Alfredo Brantley on 66-63-6319XDG [Catalytic activity/Vol]Aspartate aminotransferase [Enzymatic activity/volume] in Serum or Eaioza76-24XjrarhtzjCleveland Clinic Hillcrest HospitalBasophils Auto (Bld) [#/Vol]Ordered By: Jose Alfredo Brantley on 28-57-2169Loxpcbroe (Bld) [#/Vol]Automated basophil countCleveland Clinic Hillcrest HospitalBasophils/100 WBC Auto (Bld)Ordered By: Jose Alfredo Brantley on 06-18-2024 Basophils/100 WBC (Bld)Automated basophil %[facility] Bilirubin.total [Mass/volume] in Serum or PlasmaOrdered By: Jose Alfredo Brantley on 73-71-7607Ngqcfejmh [Mass/Vol]Bilirubin.total [Mass/volume] in Serum or Plasma 0.3-1.0[facility] HospitalBurr cells [Presence] in Blood by Light microscopyOrdered By: Jose Alfredo Brantley on 48-74-6963Vtdk cells LM Ql (Bld)Joppa cells [Presence] in Blood by Light microscopyCleveland Clinic Hillcrest HospitalCalcium [Mass/volume] in Serum or PlasmaOrdered By: Jose Alfredo Brantley on 95-85-0550Whubizn [Mass/Vol]Calcium [Mass/volume] in Serum or Plasma8.6-10.3[facility] HospitalCarbon dioxide, total [Moles/volume] in Serum or PlasmaOrdered By: Jose Alfredo Brantley on 83-99-4854PG9 [Moles/Vol]Carbon dioxide, total [Moles/volume] in Serum or Anediw36.0-31.0[facility] HospitalChloride [Moles/volume] in Serum or PlasmaOrdered By: Jose Alfredo Brantley on 99-89-2018Zefigxlc [Moles/Vol]Chloride [Moles/volume] in Serum or Hjppbe62-910FyzoahdowCleveland Clinic Hillcrest HospitalComprehensive Metabolic Panelon 49-63-4379Bslxaoj [Mass/Vol]3.4 g/dLLow3.5-5.7The [facility] Physician GroupComment on above:Performed By: #### DIFF CBC, CMP ####[place] [address] USAAlbumin/Globulin [Mass ratio]1.1 {ratio}NormalThe [facility] Physician [facility] HospitalComment on above:Performed By: #### DIFF CBC, CMP ####[place] [id number] USAALP [Catalytic activity/Vol] 109 U/MBgll92-189Hgl [facility] Physician GroupComment on above:Performed By: #### DIFF CBC, CMP ####[place] [id number] USAALT [Catalytic activity/Vol]14 U/LNormal7-52The [facility]gh [facility] Suburban GroupComment on above:Performed By: #### DIFF CBC, CMP ####[place] [id number] USAAnion gap [Moles/Vol]11.4 mmol/LNormal6.0-15.0The [facility] Physician GroupComment on above:Performed By: #### DIFF CBC, CMP ####[place] [id number] USAAST [Catalytic activity/Vol]21 U/CApgxaw54-73Rgl [facility] HospitalComment on above:Performed By: #### DIFF CBC, CMP ####[place] [address] USABilirubin [Mass/Vol]0.4 mg/dL Normal0.3-1.0The [facility] Physician [facility] Care HospitalComment on above:Performed By: #### DIFF CBC, CMP ####[place] [address] USACalcium [Mass/Vol]8.7 mg/dLNormal8.6-10.3The [facility] Comment on above:Performed By: #### DIFF CBC, CMP ####[place] [address] USAChloride [Moles/Vol]102 mmol/LNormal 98-107The [facility] Physician [facility] HospitalComment on above:Performed By: #### DIFF CBC, CMP ####[place] [address] [place] CO2 [Moles/Vol]27.6 mmol/MEmbltc47.0-31.0The [facility] Physician GroupComment on above:Performed By: #### DIFF CBC, CMP ####[place] [address] USACreatinine [Mass/Vol]0.96 mg/dLNormal0.70-1.30 The [facility] Physician GroupComment on above:Performed By: #### DIFF CBC, CMP ####[place] [address] [place] Creatinine Clr Calc Aiyyxyxx41.22NormalThe [facility] Physician [facility] HospitalComment on above:Result Comment: PERFORMED BY: [facility] [address] [place] [id number] PATHOLOGIST CODING CLERKS SUPERVISOR ANDRE PERALTA M.D.Performed By: #### DIFF CBC, CMP ####[place] [address] USAGFR/1.73 sq M.predicted MDRD (S/P/Bld) [Vol rate/Area]mL/min/{1.73_m2}NormalThe [facility] Physician GroupComment on above:Performed By: #### DIFF CBC, CMP ####[place] [id number] USAGlobulin (S) [Mass/Vol]3.0 g/dLNormalThe [facility] Physician GroupComment on above:Performed By: #### DIFF CBC, CMP ####[place] [address] USAGlucose [Mass/Vol]85 mg/cFTrjljp00-600Ykr [facility] Physician GroupComment on above:Result Comment: Random Glucose Reference Range is dependent on time and content of last meal. Glucose of more than 200 mg/dL in a nonstressed, ambulatory subject supports the diagnosis of Diabetes Mellitus. ADA recommended reference rangePerformed By: #### DIFF CBC, CMP ####[place] [id number] USAPotassium [Moles/Vol] 4.0 mmol/LNormal3.5-5.1The [facility] Physician GroupComment on above:Performed By: #### DIFF CBC, CMP ####[place] [id number] USAProtein [Mass/Vol]6.4 g/dLNormal6.4-8.9The [facility] Physician GroupComment on above:Performed By: #### DIFF CBC, CMP ####[place] [id number] USASodium [Moles/Vol]137 mmol/BGusntb060-210Gra [facility] Physician GroupComment on above:Performed By: #### DIFF CBC, CMP ####[place] [id number] USAUrea nitrogen [Mass/Vol]21 mg/dLNormal7-25The [facility] Physician GroupComment on above:Performed By: #### DIFF CBC, CMP ####[place] [id number] USACreatinine [Mass/volume] in Serum or PlasmaOrdered By: Jose Alfredo Brantley on 12-53-3937Fvqdefvajo [Mass/Vol] Creatinine [Mass/volume] in Serum or Plasma0.70-1.30[facility] HospitalDiff and CBCon 63-82-2042AkvgzazrognbTmdihtCzebtwLbv [place] Physician GroupComment on above:Performed By: #### DIFF CBC, CMP ####[address] [address] USAAnisocytosis Ql (Bld)Marked NormalThe [facility] Physician GroupComment on above:Performed By: #### DIFF CBC, CMP ####[address] [address] [place] Crenated RBCModerateNoAtrium Health [facility] Physician GroupComment on above: Performed By: #### DIFF CBC, CMP ####[address] [address] USAEosinophils/100 WBC (Bld)4 %High1-3The [facility] Physician GroupComment on above:Performed By: #### DIFF CBC, CMP ####[address] [address] USAErythrocyte distribution width (RBC) [Ratio]20.2 %High12.0-14.8The [facility] Comment on above:Performed By: #### DIFF CBC, CMP ####[address] [address] USAHematocrit (Bld) [Volume fraction] 35.5 %Low38.8-50.0The [facility] Physician GroupComment on above:Performed By: #### DIFF CBC, CMP ####[address] [address] USAHemoglobin (Bld) [Mass/Vol]11.8 g/dLLow13.0-17.0The [facility] Physician GroupComment on above:Performed By: #### DIFF CBC, CMP ####[address] [address] USAHypochromasiaSlight NormalAdventhealth Heart Of Florida Physician [facility] Care HospitalComment on above:Performed By: #### DIFF CBC, CMP ####[address] [place] [address] [place] Large PlateletsSFormerly [facility] Physician GroupComment on above:Result Comment: PERFORMED BY: [facility] [address] [place] [id number] PATHOLOGIST CODING CLERKS SUPERVISOR ANDRE PERALTA M.D.Performed By: #### DIFF CBC, CMP ####[place] [id number] USALymphocytes/100 WBC (Bld)15 %Lvk14-44Buu [facility] Physician GroupComment on above:Performed By: #### DIFF CBC, CMP ####[place] [id number] USAMacrocytosisSFormerly [facility] Physician GroupComment on above:Performed By: #### DIFF CBC, CMP ####[address] Jones StreetH (RBC) [Entitic mass]25.6 pgLow27.5-35.2The [facility] Physician GroupComment on above:Performed By: #### DIFF CBC, CMP ####[place] [id number] [facility] EDMONDV (RBC) [Entitic vol]76.7 fLLow83.5-101The [facility] Physician GroupComment on above:Performed By: #### DIFF CBC, CMP ####[place] [address] USAMean Corpuscular HGB Conc33.3 g/dLNormal 32.5-35.6The [facility] Physician GroupComment on above:Performed By: #### DIFF CBC, CMP ####[place] [id number] USAMicrocytosisSFormerly [facility] Physician GroupComment on above: Performed By: #### DIFF CBC, CMP ####[place] [id number] USAMonocytes/100 WBC (Bld)12 %High2-11The [facility] Physician GroupComment on above:Performed By: #### DIFF CBC, CMP ####[address] [address] USAPlatelet Estimate NormalNormalNormMemorial Hospital Pembroke Physician GroupComment on above:Performed By: #### DIFF CBC, CMP ####[address] [address] USAPlatelet mean volume (Bld) [Entitic vol]10.1 fLNormal6.6-10.1The [facility] Physician GroupComment on above:Performed By: #### DIFF CBC, CMP ####[address] [address] [place] Platelets (Bld) [#/Vol]239 10*3/mRRpwmsy872-965Uwt [facility] Comment on above:Performed By: #### DIFF CBC, CMP ####[address] [address] USAPoikilocytosisMarkedBaptist Health Doctors Hospital Physician GroupComment on above:Performed By: #### DIFF CBC, CMP ####[address] [address] [place] PolychromasiaSlightNoAtrium Health [facility] Physician GroupComment on above:Performed By: #### DIFF CBC, CMP ####[address] [address] USARBC (Bld) [#/Vol]4.63 10*6/uLNormal3.90-5.60The [facility] Physician GroupComment on above:Performed By: #### DIFF CBC, CMP ####[address] [address] [place] SchistocytesModerateBaptist Health Doctors Hospital Physician GroupComment on above: Performed By: #### DIFF CBC, CMP ####[address] [address] USASegmented neutrophils/100 WBC (Bld)69 %Tdhppw59-57 The [facility] Physician GroupComment on above:Performed By: #### DIFF CBC, CMP ####[address] [address] USATarget CellsModerateNormalThe [facility] Physician GroupComment on above:Performed By: #### DIFF CBC, CMP ####[facility] [address] [place] [address] USAWBC (Bld) [#/Vol]7.3 10*3/uLNormal4.1-10.5The [facility] Physician GroupComment on above:Performed By: #### DIFF CBC, CMP ####[facility] [address] [place] [address] USAEosinophils Auto (Bld) [#/Vol] Ordered By: Jose Alfredo Brantley on 64-21-7051Wwbspbixibl (Bld) [#/Vol]Automated eosinophil countCleveland Clinic Hillcrest HospitalEosinophils/100 WBC Auto (Bld) Ordered By: Jose Alfredo Brantley on 56-75-4436Pkgilbvatch/100 WBC (Bld)Automated eosinophil %[facility] Hillcrest HospitalEosinophils/100 WBC Manual cnt (Bld)Ordered By: Jose Alfredo Brantley on 95-20-0446Sburdbkjwab/100 WBC (Bld) Eosinophils/100 leukocytes in Blood by Manual countHigh1-3FUC [facility] HospitalErythrocyte distribution width Auto (RBC) [Ratio]Ordered By: Jose Alfredo Brantley on 16-82-5529Mznwufksalo distribution width (RBC) [Ratio]Erythrocyte distribution width [Ratio] by Automated rurvwKfhq09.0-14.8C[facility] Clinic Hillcrest HospitalErythrocyte morphology finding [Identifier] in BloodOrdered By: Jose Alfredo Brantley on 26-16-3540LTO morphology finding Nom (Bld)RBC morphologyCleveland Clinic Hillcrest HospitalGlobulin Calc (S) [Mass/Vol]Ordered By: Jose Alfredo Brantley on 55-32-1436Kdcmbohj (S) [Mass/Vol]Serum globulin measurement by calculation (mass/volume)[facility] Hillcrest HospitalGlucose Glucometer (BldC) [Mass/Vol]Ordered By: Jose Alfredo Brantley on 73-24-9153Orighwx [Mass/Vol]Capillary blood glucose measurement by glucometer (mass/volume)[facility] Hillcrest HospitalComment on above:Random Glucose Reference Range is dependent on time and content of last meal. Glucose of more than 200 mg/dL in a nonstressed, ambulatory subject supports the diagnosis of Diabetes Mellitus.Glucose Poct Glucometerson 77-85-7008Duguvch [Mass/Vol]386 mg/dLBaptist Health Doctors Hospital GroupComment on above:Result Comment: Random Glucose Reference Range is dependent on time and content of last meal. Glucose of more than 200 mg/dL in a nonstressed, ambulatory subject supports the diagnosis of Diabetes Mellitus. PERFORMED BY: [address] [place] [address] PATHOLOGIST CODING CLERKS SUPERVISOR ANDRE PERALTA M.D.Performed By: #### GLULS #### Point of Care testing ,Cfqtayg0JzoetpUax[address] Physician GroupComment on above:Result Comment: Glu2: Will Repeat TestPerformed By: #### GLULS #### Point of Care testing ,Wmtikoj3QAHK NOTIFY /KyleAtrium Health [facility] Physician GroupComment on above: Result Comment: PERFORMED BY: [address] [place] [id number] PATHOLOGIST CODING CLERKS SUPERVISOR ANDRE PERALTA M.D.Performed By: #### GLULS #### Point of Care testing ,Glucose [Mass/Vol]417 mg/dLOff scale [facility] Physician GroupComment on above:Result Comment: Random Glucose Reference Range is dependent on time and content of last meal. Glucose of more than 200 mg/dL in a nonstressed, ambulatory subject supports the diagnosis of Diabetes Mellitus.Performed By: #### GLULS #### Point of Care testing ,Lvgtsmf3YlixsuSom[address] Physician Compranay on above:Result Comment: Glu2: Will Repeat Test PERFORMED BY: [address] [place] [id number] PATHOLOGIST CODING CLERKS SUPERVISOR ANDRE PERALTA M.D.Performed By: #### GLULS #### Point of Care testing ,Glucose [Mass/Vol]483 mg/dLOff scale [facility] Physician GroupComment on above:Result Comment: Random Glucose Reference Range is dependent on time and content of last meal. Glucose of more than 200 mg/dL in a nonstressed, ambulatory subject supports the diagnosis of Diabetes Mellitus.Performed By: #### GLULS #### Point of Care testing ,Glucose [Mass/Vol]393 mg/dLBaptist Health Doctors Hospital Physician GroupComment on above: Result Comment: Random Glucose Reference Range is dependent on time and content of last meal. Glucose of more than 200 mg/dL in a nonstressed, ambulatory subject supports the diagnosis of Diabetes Mellitus. PERFORMED BY: [address] [address] PATHOLOGIST CODING CLERKS SUPERVISOR ANDRE PERALTA M.D.Performed By: #### GLULS #### Point of Care testing ,Glucose [Mass/Vol]85 mg/dLBaptist Health Doctors Hospital Physician GroupComment on above: Result Comment: Random Glucose Reference Range is dependent on time and content of last meal. Glucose of more than 200 mg/dL in a nonstressed, ambulatory subject supports the diagnosis of Diabetes Mellitus. PERFORMED BY: [facility] [address] [place] [address] PATHOLOGIST CODING CLERKS SUPERVISOR ANDRE PERALTA M.D.Performed By: #### GLULS #### Point of Care testing ,Glucose [Mass/volume] in Serum or PlasmaOrdered By: Jose Alfredo Brantley on 06-18-2024 Glucose [Mass/Vol]Glucose [Mass/volume] in Serum or Cxlxbe95-454PfydgadnrCleveland Clinic Hillcrest HospitalComment on above:ADA recommended reference rangeRandom Glucose Reference Range is dependent on time and content of last meal. Glucose of more than 200 mg/dL in a nonstressed, ambulatory subject supports the diagnosisof Diabetes Mellitus.Hematocrit Auto (Bld) [Volume fraction]Ordered By: oJse Alfredo Brantley on 03-25-9259Ofbuyrbbgw (Bld) [Volume fraction]Hematocrit [Volume Fraction] of Blood by Automated eeqylCnd27.8-50.0C[facility] Hillcrest HospitalHemoglobin [Mass/volume] in BloodOrdered By: Jose Alfredo Brantley on 06-18-2024 Hemoglobin (Bld) [Mass/Vol]Hemoglobin [Mass/volume] in FkdvtVxf01.0-17.0 [facility] HospitalHypochromia LM Ql (Bld)Ordered By: Jose Alfredo Brantley on 65-21-0815Kscrsubsufs Ql (Bld)Hypochromia [Presence] in Blood by Light microscopyCleveland Clinic Hillcrest HospitalLeukocytes [#/volume] corrected for nucleated erythrocytes in Blood by Automated counOrdered By: Jose Alfredo Brantley on 94-20-6001BGF corrected for nucl RBC Auto (Bld) [#/Vol]Leukocytes [#/volume] corrected for nucleated erythrocytes in Blood by Automated coun4.1-10.5FUC [facility] HospitalLymphocytes Auto (Bld) [#/Vol]Ordered By: Jose Alfredo Brantley on 44-83-2699Vyibrztyzyd (Bld) [#/Vol]Lymphocytes [#/volume] in Blood by Automated countCleveland Clinic Hillcrest HospitalLymphocytes/100 WBC Auto (Bld)Ordered By: Jose Alfredo Brantley on 69-21-4920Lpgwgqzycvc/100 WBC (Bld)Lymphocytes/100 leukocytes in Blood by Automated countCleveland Clinic Hillcrest HospitalLymphocytes/100 WBC Manual cnt (Bld)Ordered By: Jose Alfredo Brantley on 46-93-6162Aigklyikpor/100 WBC (Bld) Lymphocytes/100 leukocytes in Blood by Manual nfjlaGzd12-50PzfzxasisGreene Memorial HospitalH Auto (RBC) [Entitic mass]Ordered By: Jose Alfredo Brantley on 06-18-2024 MCH (RBC) [Entitic mass]MCH [Entitic mass] by Automated drvjaJqj65.5-35.2 [facility] HospitalHC Auto (RBC) [Mass/Vol]Ordered By: Jose Alfredo Brantley on 54-21-6634BDJN (RBC) [Mass/Vol]MCHC [Mass/volume] by Automated count 32.5-35.6FUC [facility] HospitalMCV Auto (RBC) [Entitic vol]Ordered By: Jose Alfredo Brantley on 71-86-7582ACV (RBC) [Entitic vol]MCV [Entitic volume] by Automated zhikuIov22.5-101C[facility] HospitalMacrocytes LM Ql (Bld)Ordered By: Jose Alfredo Brantley on 69-90-7453Ckfucigmxv Ql (Bld)Macrocytes [Presence] in Blood by Light microscopyCleveland Clinic Hillcrest Hospital Microcytes LM Ql (Bld)Ordered By: Jose Alfredo Brantley on 68-30-1594Ywpzlgdjqi Ql (Bld) Microcytes [Presence] in Blood by Light microscopyCleveland Clinic Hillcrest HospitalMonocytes Auto (Bld) [#/Vol]Ordered By: Jose Alfredo Brantley on 13-35-7468Rdfuzxwph (Bld) [#/Vol]Automated blood monocyte countCleveland Clinic Hillcrest Hospital Monocytes/100 WBC Auto (Bld)Ordered By: Jose Alfredo Brantley on 20-76-9953Zuzraxwpt/100 WBC (Bld)Automated monocyte %[facility] HospitalMonocytes/100 WBC Manual cnt (Bld)Ordered By: Jose Alfredo Brantley on 14-35-6764Ltivhzkqo/100 WBC (Bld) Monocytes/100 leukocytes in Blood by Manual countHigh2-11[facility] HospitalNeutrophils Auto (Bld) [#/Vol]Ordered By: Jose Alfredo Brantley on 73-41-4410Rxzhfhypxhx (Bld) [#/Vol]Neutrophils [#/volume] in Blood by Automated countCleveland Clinic Hillcrest HospitalNeutrophils/100 WBC Auto (Bld)Ordered By: Jose Alfredo Brantley on 73-04-6964Oudykdcdbkn/100 WBC (Bld)Automated neutrophil % [facility] HospitalNo Panel InformationOrdered By: Jose Alfredo Brantley on 09-15-2353Diwrugp Glucose #[address]/[facility] MemorialBedside Glucose CommentSee commentCleveland Clinic Hillcrest HospitalComment on above:Glu2: Will Repeat TestEstimated GFR (CKD-EPI)> 60.0 mL/MinCleveland Clinic Hillcrest HospitalPharmacy Creatinine Clearance (Chem50.22[facility] HospitalNucleated erythrocytes [Presence] in Blood by Automated countOrdered By: Jose Alfredo Brantley on 61-61-3384Yqhzeauzq RBC Auto Ql (Bld)Nucleated erythrocytes [Presence] in Blood by Automated countCleveland Clinic Hillcrest HospitalPlatelet adequacy [Presence] in Blood by Light microscopyOrdered By: Jose Alfredo Brantley on 94-56-3869Vhoiznkyo LM Ql (Bld)Platelet adequacy [Presence] in Blood by Light microscopyNormalCleveland Clinic Hillcrest HospitalPlatelet mean volume Auto (Bld) [Entitic vol]Ordered By: Jose Alfredo Brantley on 59-86-1294Txufedxv mean volume (Bld) [Entitic vol]Platelet mean volume [Entitic volume] in Blood by Automated count6.6-10.1FUC [facility] HospitalPlatelet morphology finding [Identifier] in BloodOrdered By: Jose Alfredo Brantley on 11-94-6506Mjlwwtyq morphology finding Nom (Bld)Platelet morphology finding [Identifier] in Blood [facility] HospitalPlatelets Auto (Bld) [#/Vol]Ordered By: Jose Alfredo Brantley on 48-37-8802Jpkjohkxa (Bld) [#/Vol]Platelets [#/volume] in Blood by Automated iihtv187-567SbldskgnkProMedica Memorial Hospital Large [Presence] in Blood by Light microscopyOrdered By: Jose Alfredo Brantley on 06-18-2024 Platelets Large LM Ql (Bld)Platelets Large [Presence] in Blood by Light microscopyCleveland Clinic Hillcrest HospitalPoikilocytosis [Presence] in Blood by Light microscopyOrdered By: Jose Alfredo Brantley on 59-67-7551Aksntcckufsava LM Ql (Bld) Poikilocytosis [Presence] in Blood by Light microscopyCleveland Clinic Hillcrest HospitalPolychromasia [Presence] in Blood by Light microscopyOrdered By: Jose Alfredo Brantley on 66-40-1506Ufcjddjutsobi LM Ql (Bld)Polychromasia [Presence] in Blood by Light microscopyCleveland Clinic Hillcrest HospitalPotassium [Moles/volume] in Serum or PlasmaOrdered By: Jose Alfredo Brantley on 11-74-3606Fvbgoiceh [Moles/Vol] Potassium [Moles/volume] in Serum or Plasma3.5-5.1FUC [facility] HospitalProtein [Mass/volume] in Serum or PlasmaOrdered By: Jose Alfredo Brantley on 97-99-4190Eafnlvy [Mass/Vol]Protein [Mass/volume] in Serum or Plasma6.4-8.9 [facility] HospitalRBC Auto (Bld) [#/Vol]Ordered By: Jose Alfredo Brantley on 27-05-2188CZH (Bld) [#/Vol]Erythrocytes [#/volume] in Blood by Automated count3.90-5.60[facility] Medical CenterSchistocytes [Presence] in Blood by Light microscopyOrdered By: Jose Alfredo Brantley on 83-56-4974Ltywkihvjind LM Ql (Bld) Schistocytes [Presence] in Blood by Light microscopyOhio State Health Systemegmented neutrophils/100 WBC Manual cnt (Bld)Ordered By: Jose Alfredo Brantley on 70-91-4147Rehjwjiae neutrophils/100 WBC (Bld)Manual blood segmented neutrophils/100 fnmfsimyuf03-65OjxgcelrgOhio State Health Systemerum or plasma albumin/globulin mass ratioOrdered By: Jose Alfredo Brantley on 66-29-4026Yyvirkm/Globulin [Mass ratio]Serum or plasma albumin/globulin mass ratioOhio State Health Systemerum or plasma anion gap determinationOrdered By: Jose Alfredo Brantley on 46-96-0322Nchbk gap [Moles/Vol]Serum or plasma anion gap determination6.0-15.0 [facility] Health Systemodium [Moles/volume] in Serum or PlasmaOrdered By: Jose Alfredo Brantley on 25-07-7725Gpoacx [Moles/Vol]Sodium [Moles/volume] in Serum or Qfvkmw188-120DfranqfezCleveland Clinic Hillcrest HospitalTarget cells [Presence] in Blood by Light microscopyOrdered By: Jose Alfredo Brantley on 58-94-0477Qtmrqi cells LM Ql (Bld)Target cellsCleveland Clinic Hillcrest HospitalUrea nitrogen [Mass/volume] in Serum or PlasmaOrdered By: Jose Alfredo Brantley on 94-18-3955Bxcb nitrogen [Mass/Vol] Urea nitrogen [Mass/volume] in Serum or Plasma7-25[facility] HospitalWBC Auto (Bld) [#/Vol]Ordered By: Jose Alfredo Brantley on 06-01-4695TNC (Bld) [#/Vol]Leukocytes [#/volume] in Blood by Automated count4.1-10.5F[facility] HospitalComprehensive Metabolic Panelon 99-34-2138Wusewxk [Mass/Vol]3.3 g/dLLow3.5-5.7The [facility] Physician GroupComment on above: Performed By: #### CMP, SCAN CBC, PHOS, MG ####[facility] [address] [place] [address] USAAlbumin/Globulin [Mass ratio]1.2 {ratio}NormalThe [facility] Physician GroupComment on above:Performed By: #### CMP, SCAN CBC, PHOS, MG ####[place] [address] USAALP [Catalytic activity/Vol]109 U/NHmdr41-512Ckm [facility] Physician GroupComment on above:Performed By: #### CMP, SCAN CBC, PHOS, MG ####[place] [address] USAALT [Catalytic activity/Vol]12 U/LNormal7-52The [facility] Comment on above:Performed By: #### CMP, SCAN CBC, PHOS, MG ####[place] [address] USAAnion gap [Moles/Vol] 11.1 mmol/LNormal6.0-15.0The [facility] Physician GroupComment on above:Performed By: #### CMP, SCAN CBC, PHOS, MG ####[place] [address] USAAST [Catalytic activity/Vol]20 U/GTtcokw07-33Vpx [facility] Physician GroupComment on above:Performed By: #### CMP, SCAN CBC, PHOS, MG ####[place] [address] USABilirubin [Mass/Vol]0.4 mg/dLNormal0.3-1.0The [facility]ician [facility] Comment on above:Performed By: #### CMP, SCAN CBC, PHOS, MG ####[place] [address] USACalcium [Mass/Vol]8.4 mg/dLLow8.6-10.3The [facility] Physician GroupComment on above:Performed By: #### CMP, SCAN CBC, PHOS, MG ####[place] [address] USAChloride [Moles/Vol]101 mmol/CPhgttz22-854Abn [facility] Physician GroupComment on above:Performed By: #### CMP, SCAN CBC, PHOS, MG ####[facility] [place] [address] USACO2 [Moles/Vol]27.8 mmol/SKazsxs31.0-31.0The [facility] Physician GroupComment on above:Performed By: #### CMP, SCAN CBC, PHOS, MG ####[place] [address] [place] [address] USACreatinine [Mass/Vol]0.79 mg/dLNormal0.70-1.30The [facility] Physician GroupComment on above:Performed By: #### CMP, SCAN CBC, PHOS, MG ####[place] [address] [place] [address] USACreatinine Clr Calc Stbhuvof92.66NormMemorial Hospital Pembroke Physician GroupComment on above:Performed By: #### CMP, SCAN CBC, PHOS, MG ####[place] [address] [place] [address] [place] GFR/1.73 sq M.predicted MDRD (S/P/Bld) [Vol rate/Area]mL/min/{1.73_m2}NormalThe [facility] Physician GroupComment on above:Performed By: #### CMP, SCAN CBC, PHOS, MG ####[place] [address] [place] [address] USAGlobulin (S) [Mass/Vol]2.8 g/dLNoAtrium Health [facility] Physician [facility] Critical Care HospitalComment on above:Performed By: #### CMP, SCAN CBC, PHOS, MG ####[place] [address] USAGlucose [Mass/Vol]79 mg/zWIskdgv16-187 The [facility] Physician GroupComment on above:Result Comment: Random Glucose Reference Range is dependent on time and content of last meal. Glucose of more than 200 mg/dL in a nonstressed, ambulatory subject supports the diagnosis of Diabetes Mellitus. ADA recommended reference rangePerformed By: #### CMP, SCAN CBC, PHOS, MG ####[place] [address] [place] [id number] [place] Potassium [Moles/Vol]3.9 mmol/LNormal3.5-5.1The [facility] Physician GroupComment on above:Performed By: #### CMP, SCAN CBC, PHOS, MG ####[place] [address] USAProtein [Mass/Vol]6.1 g/dLLow 6.4-8.9The [facility] Physician GroupComment on above:Performed By: #### CMP, SCAN CBC, PHOS, MG ####[place] [address] USASodium [Moles/Vol]136 mmol/JTzlgkd297-567Bts [facility] Physician GroupComment on above:Performed By: #### CMP, SCAN CBC, PHOS, MG ####[place] [address] USAUrea nitrogen [Mass/Vol]22 mg/dLNormal7-25The [facility] Physician GroupComment on above: Performed By: #### CMP, SCAN CBC, PHOS, MG ####[place] [id number] USAGlucose Poct Glucometerson 06-17-2024 Wuxbdng0Jzk7: Cleaned MeterBaptist Health Doctors Hospital Physician GroupComment on above: Result Comment: PERFORMED BY: [place] [address] PATHOLOGIST CODING CLERKS SUPERVISOR ANDRE PERALTA M.D.Performed By: #### GLULS #### Point of Care testing ,Glucose [Mass/Vol]229 mg/dLNoAtrium Health [facility] Physician GroupComment on above: Result Comment: Random Glucose Reference Range is dependent on time and content of last meal. Glucose of more than 200 mg/dL in a nonstressed, ambulatory subject supports the diagnosis of Diabetes Mellitus.Performed By: #### GLULS #### Point of Care testing ,Opjaosb1Rcf7: Cleaned MeterBaptist Health Doctors Hospital Physician GroupComment on above: Result Comment: PERFORMED BY: [place] [address] PATHOLOGIST CODING CLERKS SUPERVISOR ANDRE PERALTA M.D.Performed By: #### GLULS #### Point of Care testing ,Glucose [Mass/Vol]250 mg/dLBaptist Health Doctors Hospital Physician GroupComment on above: Result Comment: Random Glucose Reference Range is dependent on time and content of last meal. Glucose of more than 200 mg/dL in a nonstressed, ambulatory subject supports the diagnosis of Diabetes Mellitus.Performed By: #### GLULS #### Point of Care testing ,Glucose [Mass/Vol]352 mg/dLBaptist Health Doctors Hospital Physician GroupComment on above: Result Comment: Random Glucose Reference Range is dependent on time and content of last meal. Glucose of more than 200 mg/dL in a nonstressed, ambulatory subject supports the diagnosis of Diabetes Mellitus. PERFORMED BY: [place] [address] PATHOLOGIST CODING CLERKS SUPERVISOR ANDRE PERALTA M.D.Performed By: #### GLULS ####Point of Care testing, Glucose [Mass/Vol]82 mg/dLBaptist Health Doctors Hospital Physician GroupComment on above: Result Comment: Random Glucose Reference Range is dependent on time and content of last meal. Glucose of more than 200 mg/dL in a nonstressed, ambulatory subject supports the diagnosis of Diabetes Mellitus. PERFORMED BY: [place] [address] PATHOLOGIST CODING CLERKS SUPERVISOR ANDRE PERALTA M.D.Performed By: #### GLULS ####Point of Care testing, Magnesiumon 47-65-0065Ggfcwunht [Mass/Vol]1.7 mg/dLLow1.9-2.7The [facility] Physician GroupComment on above:Result Comment: PERFORMED BY: [place] [address] PATHOLOGIST CODING CLERKS SUPERVISOR ANDRE PERALTA M.D.Performed By: #### CMP, SCAN CBC, PHOS, MG ####[facility] [address] [place] [address] [facility] Magnesium [Mass/volume] in Serum or PlasmaOrdered By: Jose Alfredo Brantley on 06-17-2024 Magnesium [Mass/Vol]Magnesium [Mass/volume] in Serum or PlasmaLow1.9-2.7 [facility] HospitalPhosphate [Mass/volume] in Serum or Plasma Ordered By: Jose Alfredo Brantley on 68-57-2934Xlzdwjmzk [Mass/Vol]Phosphate [Mass/volume] in Serum or Plasma2.5-4.5[facility] HospitalPhosphoruson 84-41-3244Khlsievql [Mass/Vol]3.7 mg/dLNormal2.5-4.5The [facility] Physician GroupComment on above:Performed By: #### CMP, SCAN CBC, PHOS, MG ####[place] [address] USAScan and CBCon 19-83-5457MazdxcuktpgbUviufkorRmguccIcm [place] Physician GroupComment on above:Performed By: #### CMP, SCAN CBC, PHOS, MG ####[place] [address] USAAnisocytosis Ql (Bld)[facility] Physician [facility] Care HospitalComment on above:Performed By: #### CMP, SCAN CBC, PHOS, MG ####[place] [address] USABasophils (Bld) [#/Vol]0.1 10*3/uLNormal0.0-0.2The [facility] Comment on above:Performed By: #### CMP, SCAN CBC, PHOS, MG ####[place] [address] USABasophils/100 WBC (Bld)0.9 %Normal.The [facility] Physician GroupComment on above:Performed By: #### CMP, SCAN CBC, PHOS, MG ####[place] [id number] USACrenated RBCSlightBaptist Health Doctors Hospital Physician [facility] Critical Care HospitalComment on above:Performed By: #### CMP, SCAN CBC, PHOS, MG ####[place] [address] USAEosinophils (Bld) [#/Vol]0.2 10*3/uLNormal0.0-0.45The [facility] Physician GroupComment on above: Performed By: #### CMP, SCAN CBC, PHOS, MG ####[place] [address] USAEosinophils/100 WBC (Bld)2.0 %Normal. The [facility] Physician GroupComment on above:Performed By: #### CMP, SCAN CBC, PHOS, MG ####[place] [address] USAErythrocyte distribution width (RBC) [Ratio]20.3 %High12.0-14.8The [facility] Physician GroupComment on above:Performed By: #### CMP, SCAN CBC, PHOS, MG ####[place] [address] [place] Hematocrit (Bld) [Volume fraction]35.1 %Low38.8-50.0The [facility] Physician GroupComment on above:Performed By: #### CMP, SCAN CBC, PHOS, MG ####[place] [address] USAHemoglobin (Bld) [Mass/Vol]11.5 g/dLLow13.0-17.0The [facility] Physician GroupComment on above: Performed By: #### CMP, SCAN CBC, PHOS, MG ####[place] [address] USAHypochromasiaModerateNormMemorial Hospital Pembroke Physician GroupComment on above:Performed By: #### CMP, SCAN CBC, PHOS, MG ####[place] [id number] USALarge PlateletsSlightNoAtrium Health [facility] Physician GroupComment on above: Result Comment: PERFORMED BY: [place] [address] PATHOLOGIST CODING CLERKS SUPERVISOR ANDRE PERALTA M.D.Performed By: #### CMP, SCAN CBC, PHOS, MG ####[place] [address] [place] Lymphocytes (Bld) [#/Vol]1.7 10*3/uLNormal1.00-4.8The [facility] Comment on above:Performed By: #### CMP, SCAN CBC, PHOS, MG ####[place] [address] USALymphocytes/100 WBC (Bld)19.4 %Normal.The [facility] Physician GroupComment on above:Performed By: #### CMP, SCAN CBC, PHOS, MG ####[address] Coleman StreetMCH (RBC) [Entitic mass]25.5 pgLow27.5-35.2The [facility] Physician GroupComment on above:Performed By: #### CMP, SCAN CBC, PHOS, MG ####[address] (RBC) [Entitic vol]77.8 fLLow83.5-101The [facility] Physician GroupComment on above:Performed By: #### CMP, SCAN CBC, PHOS, MG ####[place] [address] USAMean Corpuscular HGB Conc32.8 g/pRYhafqo85.5-35.6The [facility] Physician GroupComment on above:Performed By: #### CMP, SCAN CBC, PHOS, MG ####[place] [address] USAMicrocytosisSlightNormalThe [facility] Mountain Physician GroupComment on above:Performed By: #### CMP, SCAN CBC, PHOS, MG ####[place] [address] USAMonocytes (Bld) [#/Vol]1.2 10*3/uLHigh0.0-0.8The [facility] Physician GroupComment on above: Performed By: #### CMP, SCAN CBC, PHOS, MG ####[place] [address] USAMonocytes/100 WBC (Bld)14.4 %Normal. The [facility] Physician GroupComment on above:Performed By: #### CMP, SCAN CBC, PHOS, MG ####[place] [address] USANeutrophils (Bld) [#/Vol]5.4 10*3/uLNormal1.8-7.7The [facility] Physician GroupComment on above:Performed By: #### CMP, SCAN CBC, PHOS, MG ####[place] [address] USANeutrophils/100 WBC (Bld)63.3 %Normal.The [facility] Physician GroupComment on above:Performed By: #### CMP, SCAN CBC, PHOS, MG ####[place] [address] USANRBC%0.0 /100{WBC}Normal0-0.5The [facility] Physician GroupComment on above:Performed By: #### CMP, SCAN CBC, PHOS, MG ####[place] [address] USAPlatelet Estimate NormalNormalBaptist Health Doctors Hospital Physician GroupComment on above:Performed By: #### CMP, SCAN CBC, PHOS, MG ####[place] [id number] USAPlatelet mean volume (Bld) [Entitic vol]10.2 fLHigh 6.6-10.1The [facility] Physician GroupComment on above:Performed By: #### CMP, SCAN CBC, PHOS, MG ####[place] [id number] USAPlatelets (Bld) [#/Vol]213 10*3/cFVcvdsd641-477Guy [facility] Physician GroupComment on above:Performed By: #### CMP, SCAN CBC, PHOS, MG ####[place] [address] [place] PoikilocytosisMarkedNormMemorial Hospital Pembroke Physician GroupComment on above: Performed By: #### CMP, SCAN CBC, PHOS, MG ####[facility] [place] [address] USAPolychromasiaSlightBaptist Health Doctors Hospital Physician GroupComment on above:Performed By: #### CMP, SCAN CBC, PHOS, MG ####[place] [address] [place] [address] USARBC (Bld) [#/Vol]4.52 10*6/uLNormal3.90-5.60The [facility] Physician GroupComment on above:Performed By: #### CMP, SCAN CBC, PHOS, MG ####[address] [address] USASchistocytesPAM Health Specialty Hospital of Jacksonville Physician GroupComment on above:Performed By: #### CMP, SCAN CBC, PHOS, MG ####[address] [address] USATarget CellsPAM Health Specialty Hospital of [facility] Physician GroupComment on above: Performed By: #### CMP, SCAN CBC, PHOS, MG ####[address] [address] USAWBC (Bld) [#/Vol]8.5 10*3/uLNormal 4.1-10.5The [facility] Physician GroupComment on above:Performed By: #### CMP, SCAN CBC, PHOS, MG ####[address] [address] USABacteria identified Aer cx Nom (Unsp spec)Ordered By: Vargas Reis on 58-76-4434Qzuoestntlc Wound CultureAbnoWilson Street Hospital Blood Cultureon 30-35-5449Tgalawpg identified Cx Nom (Bld)NO GROWTH 5 DAYS PERFORMED BY: [facility] [address] [place] [id number] PATHOLOGIST CODING CLERKS SUPERVISOR ANDRE PERALTA M.D.NormalThe [facility] Physician GroupComment on above: Performed By: #### GLULS #### Point of Care testing ,Bacteria identified Cx Nom (Bld)NO GROWTH 5 DAYS PERFORMED BY: [address] [address] PATHOLOGIST CODING CLERKS SUPERVISOR ANDRE PERALTA M.D.[facility] Physician GroupComment on above: Performed By: #### GLULS #### Point of Care testing ,Bacteria identified Cx Nom (Bld)NO GROWTH 5 DAYS PERFORMED BY: [address] [address] PATHOLOGIST CODING CLERKS SUPERVISOR ANDRE PERALTA M.D.[facility] Physician GroupComment on above: Performed By: #### GLULS #### Point of Care testing ,CT abdomen w conon 62-27-0737FA abdomen w [facility] [address] [place] [address] Scan Report Signed Patient: Manolo Roche MR#: [id number] 353 : 1935 Acct:[id number] Age/Sex: 89 / M ADM Date: 06/16/24 Loc: ER Room: Type: [facility] ER Attending Dr: Copies to: Vargas Reis [...] Sheldon Johnson M.D.06/16/2024 3:48 PM Dictation Location: [place] [address] Transcribed By: [facility] 06/16/24 1548 Dictated By: Sheldon Johnson DO 06/16/24 1535 Signed By: 06/16/24 1548NoAtrium Health [facility] Physician GroupComprehensive Metabolic Panelon 31-36-2120Jexevxb [Mass/Vol]3.5 g/dLNormal3.5-5.7The [facility] Comment on above:Performed By: #### GLULS #### Point of Care testing ,Albumin/Globulin [Mass ratio]1.2 {ratio}NormalThe [facility] Comment on above:Performed By: #### GLULS #### Point of Care testing ,ALP [Catalytic activity/Vol]116 U/UQxfq23-201Jzg [facility] Comment on above:Performed By: #### GLULS #### Point of Care testing ,ALT [Catalytic activity/Vol]17 U/LNormal7-52The [facility] Comment on above:Performed By: #### GLULS #### Point of Care testing ,Anion gap [Moles/Vol]10.2 mmol/LNormal6.0-15.0The [facility] Comment on above:Performed By: #### GLULS #### Point of Care testing ,AST [Catalytic activity/Vol]24 U/CAhjdim78-00Bwo [facility] Comment on above:Performed By: #### GLULS #### Point of Care testing ,Bilirubin [Mass/Vol]0.4 mg/dLNormal0.3-1.0The [facility] Physician GroupComment on above:Performed By: #### GLULS #### Point of Care testing ,Calcium [Mass/Vol]8.8 mg/dLNormal8.6-10.3The [facility] Physician GroupComment on above:Performed By: #### GLULS #### Point of Care testing ,Chloride [Moles/Vol]98 mmol/FYovlyl95-709Ral [facility] Physician GroupComment on above:Performed By: #### GLULS #### Point of Care testing ,CO2 [Moles/Vol]30.4 mmol/LIjbscy14.0-31.0The [facility] Physician GroupComment on above:Performed By: #### GLULS #### Point of Care testing ,Creatinine [Mass/Vol]1.10 mg/dLNormal0.70-1.30The [facility] Comment on above:Performed By: #### GLULS #### Point of Care testing ,Creatinine Clr Calc Gisvqcli44.08NormMemorial Hospital Pembroke Physician GroupComment on above:Result Comment: PERFORMED BY: [address] [place] [address] PATHOLOGIST CODING CLERKS SUPERVISOR ANDRE PERALTA M.D.Performed By: #### GLULS #### Point of Care testing ,GFR/1.73 sq M.predicted MDRD (S/P/Bld) [Vol rate/Area]mL/min/{1.73_m2}NormalThe [facility] Physician GroupComment on above:Performed By: #### GLULS #### Point of Care testing ,Globulin (S) [Mass/Vol]3.0 g/dLNoAtrium Health [facility] Physician GroupComment on above:Performed By: #### GLULS #### Point of Care testing ,Glucose [Mass/Vol]118 mg/xKVsiq58-459Vol [facility] Physician GroupComment on above:Result Comment: Random Glucose Reference Range is dependent on time and content of last meal. Glucose of more than 200 mg/dL in a nonstressed, ambulatory subject supports the diagnosis of Diabetes Mellitus. ADA recommended reference rangePerformed By: #### GLULS #### Point of Care testing ,Potassium [Moles/Vol]4.6 mmol/LNormal3.5-5.1The [facility] Comment on above:Performed By: #### GLULS #### Point of Care testing ,Protein [Mass/Vol]6.5 g/dLNormal6.4-8.9The [facility] Physician GroupComment on above:Performed By: #### GLULS #### Point of Care testing ,Sodium [Moles/Vol]134 mmol/YTeq143-038Cpc [facility] Physician GroupComment on above:Performed By: #### GLULS #### Point of Care testing ,Urea nitrogen [Mass/Vol]29 mg/dLHigh7-25The [facility] Physician GroupComment on above:Performed By: #### GLULS #### Point of Care testing ,ECG 12 lead ECGon 67-62-3926SPH 12 lead ECGSCCI [place] [address] Electrocardiograph Report Signed Patient: Manolo Roche MR#: [id number] 353 : 1935 Acct:[id number] Age/Sex: 89 / M ADM Date: 06/16/24 Loc: Room: [address] [place] [address] Type: ADM IN Attending Dr: Jose Alfredo [...] Anterior leads Confirmed by MARVIN KONG DO ([id number]) on 06/16/2024 7:24:37 PM Referred By: Electronically Signed By: MARVIN KONG DO Transcribed By: MUS Signed By Marvin Kong DO 06/16 1924[facility] Physician [facility] Critical Care HospitalGlucose Poct Glucometerson 06-16-2024 Glucose [Mass/Vol]385 mg/dLMaple Grove HospitalComment on above: Result Comment: Random Glucose Reference Range is dependent on time and content of last meal. Glucose of more than 200 mg/dL in a nonstressed, ambulatory subject supports the diagnosis of Diabetes Mellitus. PERFORMED BY: [address] [address] PATHOLOGIST CODING CLERKS SUPERVISOR ANDRE PERALTA M.D.Performed By: #### GLULS ####Point of Care testing, Jbqkxnb2HguuyjEqd[address] Physician GroupComment on above:Result Comment: Glu2: Will Repeat TestPerformed By: #### GLULS ####Point of Care testing, Voybvle9NWTS NOTIFY DR/RNNoAtrium Health [facility] Physician GroupComment on above: Result Comment: PERFORMED BY: [address] [place] [address] PATHOLOGIST CODING CLERKS SUPERVISOR ANDRE PERALTA M.D.Performed By: #### GLULS ####Point of Care testing, Glucose [Mass/Vol]401 mg/dLOff scale highAdventhealth Heart Of Florida Physician GroupComment on above:Result Comment: Random Glucose Reference Range is dependent on time and content of last meal. Glucose of more than 200 mg/dL in a nonstressed, ambulatory subject supports the diagnosis of Diabetes Mellitus.Performed By: #### GLULS ####Point of Care testing,Helmet cells [Presence] in Blood by Light microscopyOrdered By: Vargas Reis on 74-79-9244Baaywo cells LM Ql (Bld)Helmet cell detectionCleveland Clinic Hillcrest HospitalLaboratory - Microbiology and Antimicrobial susceptibilityOrdered By: Marvin Kong on 50-76-0418Ataokfsj identified Cx Nom (Bld)NO GROWTH 5 DAYS [facility]st HospitalBacteria identified Cx Nom (Bld)NO GROWTH 5 DAYSCleveland Clinic Hillcrest HospitalLaboratory - Microbiology and Antimicrobial susceptibilityOrdered By: Vargas Reis on 70-60-9770Rpocaykw identified Cx Nom (Bld)NO GROWTH 5 DAYSCleveland Clinic Hillcrest HospitalLactate [Moles/volume] in Serum or PlasmaOrdered By: Marvin Kong on 28-47-0649Qzvohfi [Moles/Vol] Lactate [Moles/volume] in Serum or Plasma0.5-2.2FUC West Chester HospitalLactic Acidon 26-84-8378Vhfndii [Moles/Vol]1.0 mmol/LNormal0.5-2.2The [facility] Physician [facility] Critical Care HospitalComment on above:Result Comment: PERFORMED BY: [address] [place] [address] PATHOLOGIST CODING CLERKS SUPERVISOR ANDRE PERALTA M.D.Performed By: #### GLULS #### Point of Care testing ,Monocyte distribution width [Entitic volume] in Blood by AutomatedOrdered By: Vargas Reis on 98-86-8682Wwpnwqyq distribution width Auto (Bld) [Entitic vol] Monocyte distribution width [Entitic volume] in Blood by AutomatedHigh0.00-20.00 [facility]st HospitalComment on above:For adults in ED, MDW > 20.0 may be associated with a higher risk of sepsis during the first 12 hrs of hospital admissionScan and CBCon 96-52-1058EteqcqcrsawlYktyrlOqjojxPtn [place] Physician GroupComment on above:Performed By: #### GLULS #### Point of Care testing ,Anisocytosis Ql (Bld)[facility] Physician [facility] Critical Care HospitalComment on above: Performed By: #### GLULS #### Point of Care testing ,Basophils (Bld) [#/Vol]0.0 10*3/uLNormal0.0-0.2The [facility] Physician [facility] Comment on above:Result Comment: PERFORMED BY: [facility] [address] [place] [address] PATHOLOGIST CODING CLERKS SUPERVISOR ANDRE PERALTA M.D.Performed By: #### GLULS #### Point of Care testing ,Basophils/100 WBC (Bld)0.4 %Normal.The [facility] Physician GroupComment on above:Performed By: #### GLULS #### Point of Care testing ,Crenated RBCSFormerly [facility] Physician GroupComment on above:Performed By: #### GLULS #### Point of Care testing ,Eosinophils (Bld) [#/Vol]0.1 10*3/uLNormal0.0-0.45The [facility] Physician [facility] Comment on above:Performed By: #### GLULS #### Point of Care testing ,Eosinophils/100 WBC (Bld)0.5 %Normal.The [facility] Physician GroupComment on above:Performed By: #### GLULS #### Point of Care testing ,Erythrocyte distribution width (RBC) [Ratio]20.2 %High12.0-14.8The [facility] Physician GroupComment on above:Performed By: #### GLULS #### Point of Care testing ,Helmet CellsSFormerly [facility] Physician GroupComment on above:Performed By: #### GLULS #### Point of Care testing ,Hematocrit (Bld) [Volume fraction]36.1 %Low38.8-50.0The [facility] Physician GroupComment on above:Performed By: #### GLULS #### Point of Care testing ,Hemoglobin (Bld) [Mass/Vol]11.9 g/dLLow13.0-17.0The [facility] Physician [facility] Comment on above:Performed By: #### GLULS #### Point of Care testing ,HypochromasiaModerateBaptist Health Doctors Hospital Physician GroupComment on above: Performed By: #### GLULS #### Point of Care testing ,Lymphocytes (Bld) [#/Vol]2.3 10*3/uLNormal1.00-4.8The [facility] Physician [facility] Comment on above:Performed By: #### GLULS #### Point of Care testing ,Lymphocytes/100 WBC (Bld)22.7 %Normal.The [facility] Physician GroupComment on above:Performed By: #### GLULS #### Point of Care testing ,MacrocytosisSFormerly [facility] Physician GroupComment on above:Performed By: #### GLULS #### Point of Care testing ,MCH (RBC) [Entitic mass]25.5 pgLow27.5-35.2The [facility] Physician GroupComment on above:Performed By: #### GLULS #### Point of Care testing ,MCV (RBC) [Entitic vol]77.4 fLLow83.5-101The [facility] Physician GroupComment on above:Performed By: #### GLULS #### Point of Care testing ,Mean Corpuscular HGB Conc33.0 g/eBGeuchl50.5-35.6The [facility] Comment on above:Performed By: #### GLULS #### Point of Care testing ,MicrocytosisSFormerly [facility] Physician GroupComment on above:Performed By: #### GLULS #### Point of Care testing ,Monocytes (Bld) [#/Vol]1.2 10*3/uLHigh0.0-0.8The [facility] Comment on above:Performed By: #### GLULS #### Point of Care testing ,Monocytes/100 WBC (Bld)21.77 %High0.00-20.00The [facility] Comment on above:Result Comment: For adults in ED, MDW > 20.0 may be associated with a higher risk of sepsis during the first 12 hrs of hospital admissionPerformed By: #### GLULS #### Point of Care testing ,Monocytes/100 WBC (Bld)11.5 %Normal.The [facility] Physician GroupComment on above:Performed By: #### GLULS #### Point of Care testing ,Neutrophils (Bld) [#/Vol]6.5 10*3/uLNormal1.8-7.7The [facility] Physician [facility] Comment on above:Performed By: #### GLULS #### Point of Care testing ,Neutrophils/100 WBC (Bld)64.9 %Normal.The [facility] Physician GroupComment on above:Performed By: #### GLULS #### Point of Care testing ,NRBC%0.1 /100{WBC}Normal0-0.5The [facility] Physician GroupComment on above: Performed By: #### GLULS #### Point of Care testing ,Platelet EstimateNormalNormalBaptist Health [facility] Hospital Physician GroupComment on above:Performed By: #### GLULS #### Point of Care testing ,Platelet mean volume (Bld) [Entitic vol]10.9 fLHigh6.6-10.1The [facility] Physician GroupComment on above:Performed By: #### GLULS #### Point of Care testing ,Platelet MorphologyNormalNormalNoAtrium Health [facility] Physician GroupComment on above:Result Comment: PERFORMED BY: [facility] [place] [address] PATHOLOGIST CODING CLERKS SUPERVISOR ANDRE PERALTA M.D.Performed By: #### GLULS #### Point of Care testing ,Platelets (Bld) [#/Vol]233 10*3/yRAxrbei324-891Hvp [facility] Comment on above:Performed By: #### GLULS #### Point of Care testing ,PoikilocytosisMarkedBaptist Health Doctors Hospital Physician GroupComment on above: Performed By: #### GLULS #### Point of Care testing ,PolychromasiaModerateBaptist Health Doctors Hospital Physician GroupComment on above: Performed By: #### GLULS #### Point of Care testing ,RBC (Bld) [#/Vol]4.67 10*6/uLNormal3.90-5.60The [facility] Physician [facility] Comment on above:Performed By: #### GLULS #### Point of Care testing ,SchistocytesModerateBaptist Health Doctors Hospital Physician GroupComment on above: Performed By: #### GLULS #### Point of Care testing ,Target CellsModerateBaptist Health Doctors Hospital Physician GroupComment on above: Performed By: #### GLULS #### Point of Care testing ,WBC (Bld) [#/Vol]10.1 10*3/uLNormal4.1-10.5The [facility] Physician GroupComment on above:Performed By: #### GLULS #### Point of Care testing ,Superficial Wound Cultureon 99-68-9652Getcrzqyher Wound CultureORGANISM: Staphylococcus aureus (O:STAAUR) Quantity of [...] RESISTANT TO ALL B-LACTAM DRUGS. PERFORMED BY: [address] [address] PATHOLOGIST CODING CLERKS SUPERVISOR ANDRE PERALTA M.D.NormalThe [facility] Physician GroupComment on above: Performed By: #### GLULS #### Point of Care testing ,Basic Metabolic Panelon 44-12-8371Twxzp gap [Moles/Vol]11.5 mmol/LNormal 6.0-15.0The [facility] Physician GroupComment on above:Performed By: #### GLULS #### Point of Care testing ,Calcium [Mass/Vol]8.6 mg/dLNormal8.6-10.3The [facility] Physician GroupComment on above:Performed By: #### GLULS #### Point of Care testing ,Chloride [Moles/Vol]103 mmol/VUjkbrj29-247Jgg [facility] Physician GroupComment on above:Performed By: #### GLULS #### Point of Care testing ,CO2 [Moles/Vol]27.5 mmol/ENrxgnl49.0-31.0The [facility] Physician GroupComment on above:Performed By: #### GLULS #### Point of Care testing ,Creatinine [Mass/Vol]0.75 mg/dLNormal0.70-1.30The [facility] Comment on above:Performed By: #### GLULS #### Point of Care testing ,Creatinine Clr Calc Iybdfsya02.91NormalThe [facility] Physician GroupComment on above:Result Comment: PERFORMED BY: [facility] [address] [place] [address] PATHOLOGIST CODING CLERKS SUPERVISOR ANDRE PERALTA M.D.Performed By: #### GLULS #### Point of Care testing ,GFR/1.73 sq M.predicted MDRD (S/P/Bld) [Vol rate/Area]mL/min/{1.73_m2}NormalThe [facility] Physician GroupComment on above:Performed By: #### GLULS #### Point of Care testing ,Glucose [Mass/Vol]80 mg/nAVobrbf74-402Dzf [facility] Physician GroupComment on above:Result Comment: Random Glucose Reference Range is dependent on time and content of last meal. Glucose of more than 200 mg/dL in a nonstressed, ambulatory subject supports the diagnosis of Diabetes Mellitus. ADA recommended reference rangePerformed By: #### GLULS #### Point of Care testing ,Potassium [Moles/Vol]4.0 mmol/LNormal3.5-5.1The [facility] Comment on above:Performed By: #### GLULS #### Point of Care testing ,Sodium [Moles/Vol]138 mmol/QVagutu223-505Clz [facility] Physician GroupComment on above:Performed By: #### GLULS #### Point of Care testing ,Urea nitrogen [Mass/Vol]19 mg/dLNormal7-25The [facility] Physician GroupComment on above:Performed By: #### GLULS #### Point of Care testing ,Calcium [Mass/volume] in Serum or PlasmaOrdered By: Mikel Root on 46-95-2769Lpyvktk [Mass/Vol]Calcium [Mass/volume] in Serum or Plasma8.6-10.3 [facility] HospitalCarbon dioxide, total [Moles/volume] in Serum or PlasmaOrdered By: Mikel Padillaed on 08-83-5629BM0 [Moles/Vol]Carbon dioxide, total [Moles/volume] in Serum or Wghemf02.0-31.0[facility] HospitalChloride [Moles/volume] in Serum or PlasmaOrdered By: Mikel Padillaed on 82-08-5782Fjhbjfla [Moles/Vol]Chloride [Moles/volume] in Serum or Qgjceo27-935NeycyxdroCleveland Clinic Hillcrest HospitalCreatinine [Mass/volume] in Serum or PlasmaOrdered By: Mikel Root on 94-44-7095Scnuhvlyza [Mass/Vol] Creatinine [Mass/volume] in Serum or Plasma0.70-1.30[facility] HospitalGlucose Glucometer (BldC) [Mass/Vol]Ordered By: Mikel Root on 81-15-8023Erggotl [Mass/Vol]Capillary blood glucose measurement by glucometer (mass/volume)[facility] HospitalComment on above:Random Glucose Reference Range is dependent on time and content of last meal. Glucose of more than 200 mg/dL in a nonstressed, ambulatory subject supports the diagnosis of Diabetes Mellitus.Glucose Poct Glucometerson 00-57-7719Phgzuts [Mass/Vol]87 mg/dLNoAtrium Health [facility] Physician GroupComment on above:Result Comment: Random Glucose Reference Range is dependent on time and content of last meal. Glucose of more than 200 mg/dL in a nonstressed, ambulatory subject supports the diagnosis of Diabetes Mellitus. PERFORMED BY: [place] [address] [place] [address] PATHOLOGIST CODING CLERKS SUPERVISOR ANDRE PERALTA M.D.Performed By: #### GLULS #### Point of Care testing ,Glucose [Mass/volume] in Serum or PlasmaOrdered By: Mikel Root on 56-85-9463Cznooac [Mass/Vol]Glucose [Mass/volume] in Serum or Hpmsmq66-172 [facility] HospitalComment on above:ADA recommended reference rangeRandom Glucose Reference Range is dependent on time and content of last meal. Glucose of more than 200 mg/dL in a nonstressed, ambulatory subject supports the diagnosisof Diabetes Mellitus.No Panel InformationOrdered By: Mikel Root on 91-97-7617Nrcqrtdga GFR (CKD-EPI)> 60.0 mL/MinCleveland Clinic Hillcrest HospitalPharmacy Creatinine Clearance (Chem60.91[facility] HospitalPotassium [Moles/volume] in Serum or PlasmaOrdered By: Mikel Root on 05-49-4439Oaniowqgm [Moles/Vol]Potassium [Moles/volume] in Serum or Plasma3.5-5.1FMercy Health St. Joseph Warren Hospitalerum or plasma anion gap determinationOrdered By: Mikel Root on 51-81-7705Viddl gap [Moles/Vol]Serum or plasma anion gap determination6.0-15.0 [facility] Systemodium [Moles/volume] in Serum or PlasmaOrdered By: Mikel Root on 21-31-4766Jiqrbu [Moles/Vol]Sodium [Moles/volume] in Serum or Zrpvqu784-063EdzlsemcyCleveland Clinic Hillcrest HospitalUrea nitrogen [Mass/volume] in Serum or PlasmaOrdered By: Mikel Root on 63-20-0949Rzez nitrogen [Mass/Vol]Urea nitrogen [Mass/volume] in Serum or Plasma 7-25[facility] HospitalX-ray reportOrdered By: Sofia Rosales on 67-50-0757Bpeqq reportSCCI [place] [address] XRay Report Signed Patient: Manolo Roche MR#: [id number] : 1935 Acct:[id number] Age/Sex: 89 / M ADM Date: 4 Loc: Room: [address] [place] [address] Type: ADM IN Attending Dr: Abdulaziz Root [...] Sofia Rosales M.D.05/25/2024 8:13 AM Dictation Location: [place] [address] Transcribed By: [facility] 05/25/[address] Dictated By: Sofia Rosales MD 05/25/24809 Signed By: 05/25/24812 [facility] Work Phone: XR chest 2V*on 11-17-8115GS chest 2V*[facility] [place] [address] XRay Report Signed Patient: Manolo Roche MR#: [id number] : 1935 Acct:[id number] Age/Sex: 89 / M ADM Date: 05/24/24 Loc: Room: [address] [place] [address] Type: ADM IN Attending Dr: Abdulaziz Root [...] Sofia Rosales M.D.05/25/2024 8:13 AM Dictation Location: [place] [address] Transcribed By: [facility] 05/25/24812 Dictated By: Sofia Rosales MD 05/25/24809 Signed By: 05/25/[address] HospitalBasic Metabolic Panelon 30-21-5562Ywcpa gap [Moles/Vol]11.9 mmol/LNormal6.0-15.0The [place] Medical CenterComment on above:Performed By: #### BMP ####[address] [place] [address] USACalcium [Mass/Vol]8.8 mg/dLNormal 8.6-10.3The [facility] Conerly Critical Care HospitalComment on above:Performed By: #### BMP ####[address] [address] [place] Chloride [Moles/Vol]103 mmol/POrxsqm12-790Eqe [facility]er[facility] Critical Care HospitalComment on above:Performed By: #### BMP ####[address] [address] USACO2 [Moles/Vol]27.0 mmol/WZjtcye13.0-31.0The [facility] Medical CenterComment on above:Performed By: #### BMP ####[address] [place] [address] USACreatinine [Mass/Vol] 0.82 mg/dLNormal0.70-1.30The [facility] Conerly Critical Care HospitalComment on above:Performed By: #### BMP ####[address] USACreatinine Clr Calc Lwaaxags68.04NormalThe [facility] Comment on above:Result Comment: PERFORMED BY: [facility] [id number] PATHOLOGIST CODING CLERKS SUPERVISOR ANDRE PERALTA M.D.Performed By: #### BMP ####[address] USAGFR/1.73 sq M.predicted MDRD (S/P/Bld) [Vol rate/Area]mL/min/{1.73_m2}NormalThe [facility] Comment on above:Performed By: #### BMP ####[address] USAGlucose [Mass/Vol]108 mg/nQIshx55-725Laa [facility] Physician GroupComment on above:Result Comment: Random Glucose Reference Range is dependent on time and content of last meal. Glucose of more than 200 mg/dL in a nonstressed, ambulatory subject supports the diagnosis of Diabetes Mellitus. ADA recommended reference rangePerformed By: #### BMP ####[address] USAPotassium [Moles/Vol]3.9 mmol/LNormal3.5-5.1The [facility] Physician GroupComment on above:Performed By: #### BMP ####[address] USASodium [Moles/Vol]138 mmol/KIzygfw901-829Kto [facility] Physician GroupComment on above:Performed By: #### BMP ####[address] USAUrea nitrogen [Mass/Vol]22 mg/dLNormal7-25The [facility] Physician GroupComment on above:Performed By: #### BMP ####[address] [address] USACoagulation Profileon 31-36-7144tDZY Coag (Bld) [Time]30.1 rWafslz30.1-36.5The [facility] Physician GroupComment on above:Result Comment: A hematocrit value greater than 55% may lead to inaccurate results in coagulation testing. Patients having hematocrit values >55% require a special collection tube for coagulation studies. Please contact the laboratory at [phone] for redraw instructions. PERFORMED BY: [facility] [address] [place] [address] PATHOLOGIST CODING CLERKS SUPERVISOR ANDRE PERALTA M.D.Performed By: #### PP ####[address] [place] [address] USAINR Coag (PPP) [Relative time]1.1 {INR}NormalThe [facility]ician Conerly Critical Care HospitalComment on above:Result Comment: INR Therapeutic Range A) [...] valves: 3 - 4.5Performed By: #### PP ####[address] [address] USAPT Coag (PPP) [Time]12.9 sNormal9.0-12.9The [facility] Conerly Critical Care HospitalComment on above: Result Comment: A hematocrit value greater than 55% may lead to inaccurate results in coagulation testing. Patients having hematocrit values >55% require a special collection tube for coagulation studies. Please contact the laboratory at [phone] for redraw instructions.Performed By: #### PP ####[address] [place] [address] USAGlucose Poct Glucometerson 18-77-8726Dnftusc [Mass/Vol]68 mg/dLNormMercy Regional Medical CenterComment on above:Result Comment: Random Glucose Reference Range is dependent on time and content of last meal. Glucose of more than 200 mg/dL in a nonstressed, ambulatory subject supports the diagnosis of Diabetes Mellitus. PERFORMED BY: [facility] [address] [place] [address] PATHOLOGIST CODING CLERKS SUPERVISOR ANDRE PERALTA M.D.Performed By: #### GLULS #### Point of Care testing ,Glucose [Mass/Vol]87 mg/dLBaptist Health Doctors Hospital Physician GroupComment on above: Result Comment: Random Glucose Reference Range is dependent on time and content of last meal. Glucose of more than 200 mg/dL in a nonstressed, ambulatory subject supports the diagnosis of Diabetes Mellitus. PERFORMED BY: [address] [place] [place] [address] PATHOLOGIST CODING CLERKS SUPERVISOR ANDRE PERALTA M.D.Performed By: #### GLULS #### Point of Care testing ,Glucose [Mass/Vol]100 mg/dLBaptist Health Doctors Hospital Physician GroupComment on above: Result Comment: Random Glucose Reference Range is dependent on time and content of last meal. Glucose of more than 200 mg/dL in a nonstressed, ambulatory subject supports the diagnosis of Diabetes Mellitus. PERFORMED BY: [address] [address] PATHOLOGIST CODING CLERKS SUPERVISOR ANDRE PERALTA M.D.Performed By: #### GLULS #### Point of Care testing ,Qcglvms3FiagiaAkw Firelands Physician GroupComment on above:Result Comment: Glu2: Result Not Confirmed PERFORMED BY: [address] [place] [address] PATHOLOGIST CODING CLERKS SUPERVISOR ANDRE PERALTA M.D.Performed By: #### GLULS ####Point of Care testing, Glucose [Mass/Vol]55 mg/dLOff scale [facility] Physician GroupComment on above:Result Comment: Random Glucose Reference Range is dependent on time and content of last meal. Glucose of more than 200 mg/dL in a nonstressed, ambulatory subject supports the diagnosis of Diabetes Mellitus.Performed By: #### GLULS ####Point of Care testing,INR in Platelet poor plasma by Coagulation assayOrdered By: Mikel Root on 19-69-5147ZMX Coag (PPP) [Relative time]INR in Platelet poor [...] 4.5No Panel InformationOrdered By: Mikel Root on 67-67-8242Vijjnhi Glucose CommentSee commentCleveland Clinic Hillcrest HospitalComment on above:Glu2: Result Not ConfirmedProthrombin time (PT)Ordered By: Mikel Root on 70-39-8866LM Coag (PPP) [Time]Prothrombin time (PT)9.0-12.9[facility]st HospitalComment on above:A hematocrit value greater than 55% may lead to inaccurate results in coagulation testing. Patientshaving hematocrit values >55% require a special collection tube for coagulation studies. Please contact the laboratory at [phone] for redraw instructions.aPTT in Platelet poor plasma by Coagulation assayOrdered By: Mikel Root on 02-88-3010tCNS Coag (PPP) [Time]Activated partial thromboplastin time (aPTT) in platelet poor plasma by coagulation a25.1-36.5FUC [facility] HospitalComment on above:A hematocrit value greater than 55% may lead to inaccurate results in coagulation testing. Patientshaving hematocrit values >55% require a special collection tube for coagulation studies. Please contact the laboratory at [phone] for redraw instructions.Acanthocytes [Presence] in Blood by Light microscopyOrdered By: Mikel Root on 14-58-9803Tiwywibwzmbq LM Ql (Bld)SlightCleveland Clinic Hillcrest HospitalAcanthocytes LM Ql (Bld)Acanthocytes [Presence] in Blood by Light microscopyCleveland Clinic Hillcrest HospitalAnisocytosis LM Ql (Bld) Ordered By: Mikel Root on 37-21-4665Dhczebyiesqy Ql (Bld) Anisocytosis [Presence] in Blood by Light microscopyCleveland Clinic Hillcrest HospitalAnisocytosis [Presence] in Blood by Light microscopyOrdered By: Mikel Root on 89-02-2265Xjivnmcmpwaz Ql (Bld)SlightNormalCleveland Clinic Hillcrest HospitalComment on above:Performed By: #### BMP, DIFF CBC ####[facility] [address] [place] [address] USABasic Metabolic Panelon 09-62-3173DHJ/1.73 sq M.predicted MDRD (S/P/Bld) [Vol rate/Area]mL/min/{1.73_m2}NormalThe [facility] Physician GroupComment on above: Performed By: #### BMP, DIFF CBC ####[facility] [address] [place] [address] USABasophils Auto (Bld) [#/Vol]Ordered By: Mikel Root on 63-72-3151Ehmpwbdnh (Bld) [#/Vol]N/[facility] CampusBasophils (Bld) [#/Vol]Automated basophil countCleveland Clinic Hillcrest HospitalBasophils/100 WBC Auto (Bld)Ordered By: Mikel Root on 76-67-5348Jhzbmcnrg/100 WBC (Bld)N/[facility] Basophils/100 WBC (Bld)Automated basophil %[facility] Basophils/100 WBC Manual cnt (Bld)Ordered By: Mikel Root on 92-94-2247Cgzcpijiu/100 WBC (Bld)Basophils/100 leukocytes in Blood by Manual count0UC [facility] HospitalBasophils/100 leukocytes in Blood by Manual countOrdered By: Mikel Root on 10-49-1494Nhrldtraf/100 WBC (Bld)1 %Normal070 Brown StreetComment on above:Performed By: #### BMP, DIFF CBC ####[facility] [place] [address] USACalcium [Mass/volume] in Serum or PlasmaOrdered By: Mikel Root on 31-07-4053Jliuyvz [Mass/Vol]8.7 mg/dLNormal8.6-10.3FUC [facility] HospitalComment on above:Result Comment: PERFORMED BY: [facility] [address] [place] [address] PATHOLOGIST CODING CLERKS SUPERVISOR AIRAM MAST M.D.Performed By: #### BMP, DIFF CBC ####[facility] [address] [place] [address] USACalcium [Mass/Vol]Calcium [Mass/volume] in Serum or Plasma8.6-10.3FUC [facility] HospitalCarbon dioxide, total [Moles/volume] in Serum or PlasmaOrdered By: Mikel Root on 35-40-5562JZ7 [Moles/Vol]26.6 mmol/CVaxomy93.0-31.0[facility] HospitalComment on above:Performed By: #### BMP, DIFF CBC ####[address] [address] USACO2 [Moles/Vol]Carbon dioxide, total [Moles/volume] in Serum or Gxomto14.0-31.0 [facility]st HospitalChloride [Moles/volume] in Serum or Plasma Ordered By: Mikel Root on 82-18-6927Nieyripx [Moles/Vol]95 mmol/L Yrb66-413TmtrbbthqCleveland Clinic Hillcrest HospitalComment on above:Performed By: #### BMP, DIFF CBC ####[address] [address] USAChloride [Moles/Vol]Chloride [Moles/volume] in Serum or WbwebbJyk38-663 [facility] HospitalCreatinine [Mass/volume] in Serum or Plasma Ordered By: Mikel Root on 80-24-9899Jgnylueplw [Mass/Vol]1.06 mg/dL Normal0.70-1.30[facility]st HospitalComment on above:Performed By: #### BMP, DIFF CBC ####[address] [place] [address] USACreatinine [Mass/Vol]Creatinine [Mass/volume] in Serum or Plasma 0.70-1.30[facility] HospitalDiff and CBCon 76-23-1859Ggsepqtcnhfv SlightBaptist Health Doctors Hospital Physician GroupComment on above:Performed By: #### BMP, DIFF CBC ####[address] [address] USAHypochromasiaMarkedBaptist Health Doctors Hospital Physician GroupComment on above: Performed By: #### BMP, DIFF CBC ####[address] [address] USAMean Corpuscular HGB Conc32.2 g/dLLow32.5-35.6The [facility] Physician GroupComment on above:Performed By: #### BMP, DIFF CBC ####[address] [address] [place] MicrocytosisSFormerly [facility] Physician GroupComment on above:Performed By: #### BMP, DIFF CBC ####[address] [address] USAPlatelet EstimateNormalNormPhysicians Regional Medical Center - Collier Boulevard Physician GroupComment on above:Performed By: #### BMP, DIFF CBC ####[address] [address] USAPlatelet Morphology NormalNoHCA Florida St. Petersburg Hospital Physician GroupComment on above:Result Comment: PERFORMED BY: [facility] [address] [place] [address] PATHOLOGIST CODING CLERKS SUPERVISOR AIRAM MAST M.D.Performed By: #### BMP, DIFF CBC ####[address] [address] USAPoikilocytosisModerateBaptist Health Doctors Hospital Physician GroupComment on above:Performed By: #### BMP, DIFF CBC ####[address] [address] [place] PolychromasiaSFormerly [facility] Physician GroupComment on above:Performed By: #### BMP, DIFF CBC ####[facility] [address] [place] [address] USASchistocytesCritical access hospital Physician GroupComment on above:Performed By: #### BMP, DIFF CBC ####[facility] [address] [place] [address] USATarget CellsCritical access hospital Physician GroupComment on above:Performed By: #### BMP, DIFF CBC ####[facility] [address] [place] [address] USAECG 12 lead ECGon 90-43-8402OBO 12 lead ECGSCCI HOSPITAL LIMA [place] [address] [place] [address] Electrocardiograph Report Signed Patient: Manolo Roche MR#: [id number] [birth year] : 1935 Acct:[id number] Age/Sex: 89 / M ADM Date: 05/16/24 Loc: Room: Type: [facility] Attending Dr: Abdulaziz Root MD Ordering [...] changes have occurred Confirmed by CONRAD OGLESBY [facility] [place] ([id number]) on 05/16/2024 2:20:20 PM Referred By: Electronically Signed By: HARSH MARTINES MD FAC Transcribed By: MUS Signed By Harsh Martines MD, FACC 05/16/24 1420[facility] Physician GroupEosinophils Auto (Bld) [#/Vol] Ordered By: Mikel Root on 59-78-3899Ybgfrvciner (Bld) [#/Vol]N/A [facility] HospitalEosinophils (Bld) [#/Vol]Automated eosinophil countCleveland Clinic Hillcrest HospitalEosinophils/100 WBC Auto (Bld)Ordered By: Mikel Root on 02-20-0451Jldxkeyntnt/100 WBC (Bld)N/AFUC West Chester HospitalEosinophils/100 WBC (Bld)Automated eosinophil %[facility] HospitalEosinophils/100 WBC Manual cnt (Bld)Ordered By: Mikel Root on 67-79-2693Efssaxyrfeb/100 WBC (Bld)Eosinophils/100 leukocytes in Blood by Manual count1-[facility] Eosinophils/100 leukocytes in Blood by Manual countOrdered By: Mikel Root on 36-30-5458Gjqlrgxvkay/100 WBC (Bld)2 %Normal1-[facility] HospitalComment on above:Performed By: #### BMP, DIFF CBC ####[facility] [id number] USAErythrocyte distribution width Auto (RBC) [Ratio]Ordered By: Mikel Root on 75-21-1639Eveoryrmvwp distribution width (RBC) [Ratio]Erythrocyte distribution width [Ratio] by Automated loxxrYree35.0-14.8[facility] Erythrocyte distribution width [Ratio] by Automated countOrdered By: Mikel Root on 86-36-1279Fttvuydreqq distribution width (RBC) [Ratio]21.2 %High12.0-14.8[facility] HospitalComment on above:Performed By: #### BMP, DIFF CBC ####[facility] [address] [place], [place] [address] USAErythrocyte morphology finding [Identifier] in BloodOrdered By: Mikel Root on 15-23-5689CMY morphology finding Nom (Bld)RBC morphology [facility] HospitalErythrocytes [#/volume] in Blood by Automated countOrdered By: Mikel Root on 80-53-3438JCB (Bld) [#/Vol]4.81 10*6/uLNormal3.90-5.60[facility] HospitalComment on above: Performed By: #### BMP, DIFF CBC ####[facility] [address] [place] [address] USAGlucose [Mass/volume] in Serum or PlasmaOrdered By: Mikel Root on 94-18-4745Iywzcpv [Mass/Vol]649 mg/dLOff scale high 70-100[facility] HospitalComment on above:Critical Result Called to and read [...] reference rangePerformed By: #### BMP, DIFF CBC ####[facility] [address] [place] [address] USAGlucose [Mass/Vol] Glucose [Mass/volume] in Serum or PlasmaCritically aopn01-089OqstrvpkcCleveland Clinic Hillcrest HospitalComment on above:Critical Result Called to and read back by: DREW BUITRAGO at: 05/16/2024 13:51 by:TANIAADA recommended reference rangeRandom Glucose Reference Range is dependent on time and content of last meal. Glucose of more than 200 mg/dL in a nonstressed, ambulatory subject supports the diagnosis of Diabetes Mellitus.Hematocrit Auto (Bld) [Volume fraction]Ordered By: Mikel Root on 18-83-8556Esmadhkqzy (Bld) [Volume fraction]Hematocrit [Volume Fraction] of Blood by Automated nfljdSjg39.8-50.0[facility] HospitalHematocrit [Volume Fraction] of Blood by Automated countOrdered By: Mikel Root on 29-68-5573Gdhchvfveb (Bld) [Volume fraction]38.1 %Low38.8-50.0[facility] HospitalComment on above:Performed By: #### BMP, DIFF CBC ####[facility] [address] [place] [address] USAHemoglobin [Mass/volume] in BloodOrdered By: Mikel Root on 09-96-7391Isubklouhb (Bld) [Mass/Vol]12.3 g/dLLow13.0-17.0[facility] HospitalComment on above:Performed By: #### BMP, DIFF CBC ####[facility] [address] [place] [address] USAHemoglobin (Bld) [Mass/Vol]Hemoglobin [Mass/volume] in XqggrRoo34.0-17.0[facility] HospitalHypochromia LM Ql (Bld)Ordered By: Mikel Root on 07-76-7341Cfohwdqkroy Ql (Bld)MarkedCleveland Clinic Hillcrest HospitalHypochromia Ql (Bld)Hypochromia [Presence] in Blood by Light microscopyCleveland Clinic Hillcrest HospitalLeukocytes [#/volume] corrected for nucleated erythrocytes in Blood by Automated counOrdered By: Mikel Root on 28-31-6096AFI corrected for nucl RBC Auto (Bld) [#/Vol]5.0 10*3/uL4.1-10.5FUC [facility] HospitalWBC corrected for nucl RBC Auto (Bld) [#/Vol]Leukocytes [#/volume] corrected for nucleated erythrocytes in Blood by Automated coun4.1-10.5 [facility] HospitalLeukocytes [#/volume] in Blood by Automated countOrdered By: Mikel Root on 86-09-6764GXE (Bld) [#/Vol]5.0 10*3/uLNormal4.1-10.5FUC [facility] HospitalComment on above:Performed By: #### BMP, DIFF CBC ####[facility] [address] [place] [address] USALymphocytes Auto (Bld) [#/Vol]Ordered By: Mikel Root on 72-88-0432Hxuettefixi (Bld) [#/Vol]N/AFUC West Chester HospitalLymphocytes (Bld) [#/Vol]Lymphocytes [#/volume] in Blood by Automated countCleveland Clinic Hillcrest HospitalLymphocytes/100 WBC Auto (Bld) Ordered By: Mikel Root on 09-46-0903Rjzpecdrlpo/100 WBC (Bld)N/A [facility] HospitalLymphocytes/100 WBC (Bld)Lymphocytes/100 leukocytes in Blood by Automated countCleveland Clinic Hillcrest Hospital Lymphocytes/100 WBC Manual cnt (Bld)Ordered By: Mikel Root on 80-34-8984Wplbhjdspsg/100 WBC (Bld)Lymphocytes/100 leukocytes in Blood by Manual yovsh07-61OeqyqpwohCleveland Clinic Hillcrest HospitalLymphocytes/100 leukocytes in Blood by Manual countOrdered By: Mikel Root on 82-98-5792Wmwrnsvyesu/100 WBC (Bld)23 %Unehvj84-89JpnmxyzcbCleveland Clinic Hillcrest HospitalComment on above: Performed By: #### BMP, DIFF CBC ####[facility] [address] [place] [address] [facility] Auto (RBC) [Entitic mass]Ordered By: Mikel Root on 52-99-5876JGA (RBC) [Entitic mass]MCH [Entitic mass] by Automated cvysoSub07.5-35.2FKindred Hospital Lima [Entitic mass] by Automated countOrdered By: Mikel Root on 49-46-4200OCQ (RBC) [Entitic mass]25.5 pgLow27.5-35.2FUC [facility] HospitalComment on above:Performed By: #### BMP, DIFF CBC ####[facility] [address] [place] [id number] [facility] Auto (RBC) [Mass/Vol]Ordered By: Mikel Root on 35-35-2995ZGXJ (RBC) [Mass/Vol]32.2 g/dLLow32.5-35.6 [facility] HospitalHC (RBC) [Mass/Vol]MCHC [Mass/volume] by Automated noaigAqs60.5-35.6FMemorial Health SystemV Auto (RBC) [Entitic vol]Ordered By: Mikel Root on 37-49-5920VNU (RBC) [Entitic vol]MCV [Entitic volume] by Automated cdlkzJgb19.5-101[facility] HospitalV [Entitic volume] by Automated countOrdered By: Mikel Root on 12-36-9905CVN (RBC) [Entitic vol]79.2 fLLow83.5-101[facility] HospitalComment on above:Performed By: #### BMP, DIFF CBC ####[place] [address] USAManual blood segmented neutrophils/100 leukocytesOrdered By: Mikel Root on 23-01-2506Mwkordcsr neutrophils/100 WBC (Bld)67 %Chrocg08-23UincvegzoCleveland Clinic Hillcrest HospitalComment on above:Performed By: #### BMP, DIFF CBC ####[place] [address] USAMicrocytes LM Ql (Bld)Ordered By: Mikel Root on 63-72-2490Dpdcyaoswb Ql (Bld)Slight [facility] HospitalMicrocytes Ql (Bld)Microcytes [Presence] in Blood by Light microscopyCleveland Clinic Hillcrest HospitalMonocytes Auto (Bld) [#/Vol]Ordered By: Mikel Root on 86-90-2972Yvktdsjto (Bld) [#/Vol] N/AFUC West Chester HospitalMonocytes (Bld) [#/Vol]Automated blood monocyte countCleveland Clinic Hillcrest HospitalMonocytes/100 WBC Auto (Bld) Ordered By: Mikel Root on 26-45-7338Qpimiuiml/100 WBC (Bld)N/A [facility] HospitalMonocytes/100 WBC (Bld)Automated monocyte % [facility] HospitalMonocytes/100 WBC Manual cnt (Bld)Ordered By: Mikel Root on 49-94-1408Iqmcrxdhy/100 WBC (Bld)Monocytes/100 leukocytes in Blood by Manual count2-[facility] Monocytes/100 leukocytes in Blood by Manual countOrdered By: Mikel Root on 39-57-8668Kkqbhlywv/100 WBC (Bld)8 %Normal2-[facility] HospitalComment on above:Performed By: #### BMP, DIFF CBC ####[facility] [place] [address] USANeutrophils Auto (Bld) [#/Vol]Ordered By: Mikel Root on 79-60-7381Swficiiavez (Bld) [#/Vol]N/[facility] CampusNeutrophils (Bld) [#/Vol]Neutrophils [#/volume] in Blood by Automated countCleveland Clinic Hillcrest Hospital Neutrophils/100 WBC Auto (Bld)Ordered By: Mikel Root on 05-16-2024 Neutrophils/100 WBC (Bld)N/[facility] CampusNeutrophils/100 WBC (Bld)Automated neutrophil %[facility] HospitalNo Panel InformationOrdered By: Mikel Root on 66-78-6569Rwjekdbjj GFR (CKD-EPI)> 60.0 mL/MinCleveland Clinic Hillcrest HospitalPharmacy Creatinine Clearance (ChemN/[facility] CampusNucleated erythrocytes [Presence] in Blood by Automated countOrdered By: Mikel Root on 27-65-9921Xrkzohepl RBC Auto Ql (Bld)N/[facility] Nucleated RBC Auto Ql (Bld)Nucleated erythrocytes [Presence] in Blood by Automated countCleveland Clinic Hillcrest HospitalPlatelet adequacy [Presence] in Blood by Light microscopyOrdered By: Mikel Root on 05-16-2024 Platelets LM Ql (Bld)NormalNoWilson Street HospitalPlatelets LM Ql (Bld)Platelet adequacy [Presence] in Blood by Light microscopyNoWilson Street HospitalPlatelet mean volume Auto (Bld) [Entitic vol]Ordered By: Mikel Root on 40-43-0409Yfgprieq mean volume (Bld) [Entitic vol] Platelet mean volume [Entitic volume] in Blood by Automated countHigh6.6-10.1 [facility] HospitalPlatelet mean volume [Entitic volume] in Blood by Automated countOrdered By: Mikel Root on 21-48-9322Jvqvdvze mean volume (Bld) [Entitic vol]11.3 fLHigh6.6-10.1[facility] Comment on above:Result Comment: PERFORMED BY: [facility] [address] [place] [id number] PATHOLOGIST CODING CLERKS SUPERVISOR AIRAM MAST M.D.Performed By: #### BMP, DIFF CBC ####[facility] [place] [id number] USAPlatelet morphology finding [Identifier] in BloodOrdered By: Mikel Root on 81-69-1931Trrqpzpr morphology finding Nom (Bld)NormalMarymount Hospital Platelet morphology finding Nom (Bld)Platelet morphology finding [Identifier] in BloodNoWilson Street HospitalPlatelets Auto (Bld) [#/Vol]Ordered By: Mikel Root on 84-67-3754Gotzulgfd (Bld) [#/Vol]Platelets [#/volume] in Blood by Automated oahbo466-861Ccloj[address] Platelets [#/volume] in Blood by Automated countOrdered By: Mikel Root on 48-69-3972Rxsivzpro (Bld) [#/Vol]249 10*3/yNBeniyh181-019RaqrsxmqdCleveland Clinic Hillcrest HospitalComment on above:Performed By: #### BMP, DIFF CBC ####[facility] [address] [place] [id number] [facility] Poikilocytosis [Presence] in Blood by Light microscopyOrdered By: Mikel Root on 51-07-0518Faghvaddcyufrv LM Ql (Bld)ModerateCleveland Clinic Hillcrest HospitalPoikilocytosis LM Ql (Bld)Poikilocytosis [Presence] in Blood by Light microscopyCleveland Clinic Hillcrest HospitalPolychromasia [Presence] in Blood by Light microscopyOrdered By: Mikel Root on 05-16-2024 Polychromasia LM Ql (Bld)SlightCleveland Clinic Hillcrest HospitalPolychromasia LM Ql (Bld)Polychromasia [Presence] in Blood by Light microscopyCleveland Clinic Hillcrest HospitalPotassium [Moles/volume] in Serum or PlasmaOrdered By: Mikel Root on 40-96-1691Zudewnuwf [Moles/Vol]5.4 mmol/LHigh3.5-5.1 [facility] HospitalComment on above:Performed By: #### BMP, DIFF CBC ####[facility] Potassium [Moles/Vol]Potassium [Moles/volume] in Serum or PlasmaHigh3.5-5.1 [facility] HospitalRBC Auto (Bld) [#/Vol]Ordered By: Mikel Root on 58-52-6115LEO (Bld) [#/Vol]Erythrocytes [#/volume] in Blood by Automated count3.90-5.60[facility] HospitalRBC morphologyOrdered By: Mikel Root on 40-18-6068SVU morphology finding Nom (Bld)N/A [facility] Systemchistocytes [Presence] in Blood by Light microscopyOrdered By: Mikel Root on 76-16-9178Markaatotred LM Ql (Bld)[facility] Hospitalchistocytes LM Ql (Bld)Schistocytes [Presence] in Blood by Light microscopyCleveland Clinic Hillcrest Hospital Segmented neutrophils/100 WBC Manual cnt (Bld)Ordered By: Mikel Root on 13-34-4593Tpqjyrcrn neutrophils/100 WBC (Bld)Manual blood segmented neutrophils/100 evfqqqmqjo29-96AtppjcvrsOhio State Health Systemerum or plasma anion gap determinationOrdered By: Mikel Root on 99-00-3963Ubpvo gap [Moles/Vol]11.8 mmol/LNormal6.0-15.0[facility] HospitalComment on above:Performed By: #### BMP, DIFF CBC ####[facility] [address] [place] [address] USAAnion gap [Moles/Vol] Serum or plasma anion gap determination6.0-15.0[facility] Sodium [Moles/volume] in Serum or PlasmaOrdered By: Mikel Root on 20-72-4740Aonhvt [Moles/Vol]128 mmol/SGep450-027TsbhoetlqCleveland Clinic Hillcrest HospitalComment on above:Performed By: #### BMP, DIFF CBC ####[address] [address] USASodium [Moles/Vol]Sodium [Moles/volume] in Serum or UpcqysOis642-633NlvcesuaoCleveland Clinic Hillcrest Hospital Target cellsOrdered By: Mikel Root on 72-32-1353Tqxmmk cells LM Ql (Bld)SlightCleveland Clinic Hillcrest HospitalTarget cells [Presence] in Blood by Light microscopyOrdered By: Mikel Root on 32-08-7007Knzzya cells LM Ql (Bld)Target cellsCleveland Clinic Hillcrest HospitalUrea nitrogen [Mass/volume] in Serum or PlasmaOrdered By: Mikel Root on 78-24-8660Gpar nitrogen [Mass/Vol]21 mg/dLNormal7-25[facility] HospitalComment on above:Performed By: #### BMP, DIFF CBC ####[facility] [address] [place] [address] [facility] HOSPITALUrea nitrogen [Mass/Vol]Urea nitrogen [Mass/volume] in Serum or Plasma02-02[facility] WBC Auto (Bld) [#/Vol]Ordered By: Mikel Root on 65-44-4618TSX (Bld) [#/Vol]Leukocytes [#/volume] in Blood by Automated count4.1-10.5[facility]36on 11-64-927859VsvwgDr. Chirag Merritt's recommendation for an EGD was [...] initially recommended. Best regards, Dr. Taylor of [facility]36on [phone] from Dr. Marie Tejeda's office (Internal Medicine) called to make sure that a message had been received to Dr. Beard regarding this patient and concerns Dr. Tejeda has regarding the patient having an EGD to confirm resolution of H. Pylori. This check writer salesperson could not find any message in chart or in social media project manager, so this message was created. [...] A note will be sent to the assembler golf wood head to discuss the possibility of using a stool study instead of a biopsy to avoid disturbing the scarred area. Please advise and respond to Dr. Tejeda through this telephone call note or via a letter, as to what Dr. Beard's recommendation is regarding the above inquiry. Thank you.UC HealthTelephoneon [id number] Manolo Roche 1935 M Date Provider Department Center 04/26/2024 [id number]-CWXFPDTIM CAMPBELL MP [facility] No family history on fileNormalUniversity of [facility] SouthHbA1c (Bld) [Mass fraction]on 04-15-8888YVAC HealthcareLaboratory - Hematology and Cell countson 12-83-4097FpA2a (Bld) [Mass fraction]9.8 %NOMS HealthcareOffice Visiton 87-30-8989Nsbuuq-up [id number] Manolo Roche 1935 M Date Provider Department Center 04/05/2024 Nadeen-PATRICK BEARD [facility] No family history on file Level of Service:29266 [place] OFFICE/OUTPATIENT NEW LOW MDM 30 MINUTES (GC) Reason for Visit and Comments: gastrointestinal ulcer [Other] - Pt says he's supposed to receive a procedure.UC HealthECH echo transthoracicon 09-54-6840CPG echo transthoracicSCCI [place] [address] Echocardiogram Signed Patient: Manolo Roche MR#: [id number] : 1935 Acct:[id number] Age/Sex: 88 / M ADM Date: 03/09/24 Loc: Room: Type: [facility] Attending Dr: Anat Perez MD Ordering Provider: Anat Perez MD Date of Service: 03/09/24 ECH/ECH echo transthoracic: I25.10 - Atherosclerotic heart disease of [place] coronary... Copies to: Anat Perez MD Manolo Westfall Patient Location: : 1935 Gender: Male (MM/DD/YYYY) Age: 88 Years Ordering Physician: Anat Perez Height: 70 in Weight: 140.875 lb Performed By: MARK Hearn BSA: 1.80 m2 BP: 144 / 83 mmHg HR: 53 bpm Reason For Study: I25.10 - Atherosclerotic heart disease of [place] coronary... History: HTN, DM, Former Smoker, CAD, [...] 03/09/244 Signed By: Anat Perez MD 03/09/24 2353[facility] Erythrocyte distribution width Auto (RBC) [Ratio]Ordered By: Warren Gross on 49-94-2377Qdzicdwucop distribution width (RBC) [Ratio]20.0 %High12.0-14.8 [facility] HospitalFerritin [Mass/volume] in Serum or Plasma Ordered By: Anat Perez on 70-85-7845Wsolthgb [Mass/Vol]19.8 ng/mLLow 23.9-336.2FUC [facility] HospitalHematocrit Auto (Bld) [Volume fraction]Ordered By: Warren Gross on 75-88-0406Wnpiyjoatb (Bld) [Volume fraction]26.7 %Low38.8-50.0[facility] HospitalHemoglobin [Mass/volume] in BloodOrdered By: Warren Gross on 53-72-2985Rmrxtlakjt (Bld) [Mass/Vol]8.8 g/dLLow13.0-17.0[facility] HospitalIron [Mass/volume] in Serum or PlasmaOrdered By: Anat Perez on 03-31-2181Xdbc [Mass/Vol]20 ug/uWFxm23-150JidkopstfCleveland Clinic Hillcrest HospitalIron binding capacity [Mass/volume] in Serum or PlasmaOrdered By: Anat Perez on 02-16-2024 Iron binding capacity [Mass/Vol]402 ug/gD992-484XwoidniwrCleveland Clinic Hillcrest HospitalIron saturation [Mass Fraction] in Serum or PlasmaOrdered By: Anat Perez on 28-76-6820Obdz saturation [Mass fraction]5.0 %Mby85-17GszhyydpqCleveland Clinic Hillcrest HospitalLeukocytes [#/volume] corrected for nucleated erythrocytes in Blood by Automated counOrdered By: Warren Gross on 64-83-4083GEE corrected for nucl RBC Auto (Bld) [#/Vol]5.8 10*3/uL4.1-10.5FKindred Hospital Lima Auto (RBC) [Entitic mass]Ordered By: Warren Gross on 47-96-6334CSX (RBC) [Entitic mass]26.8 pgLow27.5-35.2FMemorial Health SystemHC Auto (RBC) [Mass/Vol]Ordered By: Warren Gross on 71-65-5296EDWV (RBC) [Mass/Vol]32.9 g/dL32.5-35.6FMemorial Health SystemV Auto (RBC) [Entitic vol]Ordered By: Warren Gross on 55-60-6920BAP (RBC) [Entitic vol]81.4 fLLow83.5-101[facility] HospitalPlatelet mean volume Auto (Bld) [Entitic vol]Ordered By: Warren Gross on 21-46-5856Pbsafwbr mean volume (Bld) [Entitic vol]10.3 fLHigh6.6-10.1FUC [facility] HospitalPlatelets Auto (Bld) [#/Vol]Ordered By: Warren Gross on 78-69-1299Isetpcyjg (Bld) [#/Vol]304 10*3/jH539-571FxdfiqlqeCleveland Clinic Hillcrest HospitalRBC Auto (Bld) [#/Vol]Ordered By: Warren Gross on 45-94-1348DKN (Bld) [#/Vol]3.28 10*6/uLLow3.90-5.60[facility] HospitalTransferrin [Mass/volume] in Serum or PlasmaOrdered By: Anat Perez on 42-20-5960Zsjwcncpjrz [Mass/Vol]287 mg/kT386-073MxncunocmCleveland Clinic Hillcrest HospitalErythrocyte distribution width Auto (RBC) [Ratio]Ordered By: Warren Gross on 76-56-9952Lgroseybosg distribution width (RBC) [Ratio]19.9 % High12.0-14.8[facility] HospitalHematocrit Auto (Bld) [Volume fraction]Ordered By: Warren Gross on 46-66-5664Qhtohdgbnd (Bld) [Volume fraction]26.4 %Low38.8-50.0[facility] HospitalHemoglobin [Mass/volume] in BloodOrdered By: Warren Gross on 01-46-8236Grsmjyynrm (Bld) [Mass/Vol]8.7 g/dLLow13.0-17.0[facility] HospitalLeukocytes [#/volume] corrected for nucleated erythrocytes in Blood by Automated coun Ordered By: Warren Gross on 12-02-3312TDR corrected for nucl RBC Auto (Bld) [#/Vol]7.1 10*3/uL4.1-10.5FKindred Hospital Lima Auto (RBC) [Entitic mass]Ordered By: Warren Gross on 34-29-9917LPP (RBC) [Entitic mass]26.8 pgLow27.5-35.2FAshtabula County Medical Center Auto (RBC) [Mass/Vol]Ordered By: Warren Gross on 00-94-4586SIKS (RBC) [Mass/Vol]32.9 g/dL32.5-35.6F[facility] HospitalMCV Auto (RBC) [Entitic vol]Ordered By: Warren Gross on 11-08-0512YQH (RBC) [Entitic vol]81.6 fLLow83.5-101[facility] HospitalPlatelet mean volume Auto (Bld) [Entitic vol]Ordered By: Warren Gross on 35-04-3724Zcnnpnyq mean volume (Bld) [Entitic vol]9.6 fL6.6-10.1[facility] HospitalPlatelets Auto (Bld) [#/Vol]Ordered By: Warren Gross on 13-34-7901Mrcfgcjyq (Bld) [#/Vol]278 10*3/cM254-581JcwooxyknCleveland Clinic Hillcrest HospitalRBC Auto (Bld) [#/Vol]Ordered By: Warren Gross on 89-94-3940DXS (Bld) [#/Vol]3.23 10*6/uLLow3.90-5.60[facility] HospitalErythrocyte distribution width Auto (RBC) [Ratio]Ordered By: Warren Gross on 02-11-2024 Erythrocyte distribution width (RBC) [Ratio]20.4 %High12.0-14.8[facility] HospitalHematocrit Auto (Bld) [Volume fraction]Ordered By: Warren Gross on 51-24-1680Jrnrsjybtl (Bld) [Volume fraction]26.8 %Low38.8-50.0 [facility] HospitalHemoglobin [Mass/volume] in BloodOrdered By: Warren Gross on 46-24-9779Qdskxyitkq (Bld) [Mass/Vol]8.8 g/dLLow13.0-17.0 [facility] HospitalLeukocytes [#/volume] corrected for nucleated erythrocytes in Blood by Automated counOrdered By: Warren Gross on 14-01-9723PIR corrected for nucl RBC Auto (Bld) [#/Vol]6.4 10*3/uL4.1-10.5[facility] HospitalMCH Auto (RBC) [Entitic mass]Ordered By: Warren Gross on 06-22-2821IPC (RBC) [Entitic mass]26.8 pgLow27.5-35.2[facility] HospitalMC Auto (RBC) [Mass/Vol]Ordered By: Warren Gross on 02-41-9938CUON (RBC) [Mass/Vol]32.8 g/dL32.5-35.6F[facility] HospitalMCV Auto (RBC) [Entitic vol]Ordered By: Warren Gross on 41-45-4554UGQ (RBC) [Entitic vol]81.9 fLLow83.5-101[facility] HospitalPlatelet mean volume Auto (Bld) [Entitic vol]Ordered By: Warren Gross on 78-94-7586Ltdnelqw mean volume (Bld) [Entitic vol]10.2 fLHigh6.6-10.1[facility] HospitalPlatelets Auto (Bld) [#/Vol]Ordered By: Warren Gross on 51-97-3357Xitihnhen (Bld) [#/Vol]228 10*3/tL304-179CznmdsferCleveland Clinic Hillcrest HospitalRBC Auto (Bld) [#/Vol]Ordered By: Warren Gross on 58-49-6049WRS (Bld) [#/Vol]3.27 10*6/uLLow3.90-5.60[facility] HospitalBasophils Auto (Bld) [#/Vol]Ordered By: Sushant Cordon on 27-81-5693Gfnjjitok (Bld) [#/Vol]0.1 10*3/uL0.0-0.2[facility] HospitalBasophils/100 WBC Auto (Bld)Ordered By: Sushant Cordon on 22-34-9688Bqdcpufpu/100 WBC (Bld)1.3 %.[facility] HospitalCalcium [Mass/volume] in Serum or PlasmaOrdered By: Sushant Cordon on 49-40-3180Tueptek [Mass/Vol]8.1 mg/dLLow8.6-10.3[facility] HospitalCarbon dioxide, total [Moles/volume] in Serum or PlasmaOrdered By: Sushant Cordon on 48-52-5971TG0 [Moles/Vol]29.6 mmol/L21.0-31.0[facility] HospitalChloride [Moles/volume] in Serum or PlasmaOrdered By: Sushant Cordon on 98-71-0666Uzfsjfec [Moles/Vol]102 mmol/P44-561DajyzhcnaCleveland Clinic Hillcrest HospitalCreatinine [Mass/volume] in Serum or PlasmaOrdered By: Sushant Cordon on 18-46-6875Jdbtmxcqes [Mass/Vol]0.82 mg/dL0.70-1.30 [facility] HospitalEosinophils Auto (Bld) [#/Vol]Ordered By: Sushant Cordon on 60-34-7256Pscqnjkxcbz (Bld) [#/Vol]0.4 10*3/uL0.0-0.45 [facility] HospitalEosinophils/100 WBC Auto (Bld)Ordered By: Sushant Cordon on 04-74-9643Lukcroulimr/100 WBC (Bld)7.1 %.[facility] HospitalErythrocyte distribution width Auto (RBC) [Ratio]Ordered By: Sushant Cordon on 85-54-0552Mkiiyslncae distribution width (RBC) [Ratio]19.3 %High12.0-14.8[facility] HospitalGlucose Glucometer (BldC) [Mass/Vol]Ordered By: Warren Gross on 78-87-5951Mgubfar [Mass/Vol]382 mg/dLCleveland Clinic Hillcrest HospitalComment on above:Random Glucose Reference Range is dependent on time and content of last meal. Glucose of more than 200 mg/dL in a nonstressed, ambulatory subject supports the diagnosis of Diabetes Mellitus.Glucose [Mass/volume] in Serum or PlasmaOrdered By: Sushant Cordon on 51-61-0437Ohbphwz [Mass/Vol]320 mg/sDAdkb91-196QoqzodhhpCleveland Clinic Hillcrest HospitalComment on above:Delta: 171 on 02/07/24-620ADA recommended reference rangeRandom Glucose Reference Range is dependent on time and content of last meal. Glucose of more than 200 mg/dL in a nonstressed, ambulatory subj ect supports the diagnosis of Diabetes Mellitus.Hematocrit Auto (Bld) [Volume fraction]Ordered By: Sushant Cordon on 63-07-0703Qblqfiwixe (Bld) [Volume fraction]25.8 %Low38.8-50.0[facility] HospitalHemoglobin [Mass/volume] in BloodOrdered By: Sushant Cordon on 92-77-4140Tezxaumeem (Bld) [Mass/Vol]8.8 g/dLLow13.0-17.0[facility] HospitalLeukocytes [#/volume] corrected for nucleated erythrocytes in Blood by Automated coun Ordered By: Sushant Cordon on 65-17-3837BDW corrected for nucl RBC Auto (Bld) [#/Vol]5.7 10*3/uL4.1-10.5[facility] HospitalLymphocytes Auto (Bld) [#/Vol]Ordered By: Sushant Cordon on 95-87-0438Roydnhwgpif (Bld) [#/Vol]1.3 10*3/uL1.00-4.8[facility] HospitalLymphocytes/100 WBC Auto (Bld)Ordered By: Sushant Cordon on 28-46-1597Pbvvqwscphb/100 WBC (Bld)22.3 %.[facility] Auto (RBC) [Entitic mass] Ordered By: Sushant Cordon on 21-51-2334NYK (RBC) [Entitic mass]27.1 pgLow 27.5-35.2[facility] HospitalMCHC Auto (RBC) [Mass/Vol]Ordered By: Sushant Cordon on 58-13-8677PHQE (RBC) [Mass/Vol]33.9 g/dL32.5-35.6 [facility] HospitalMCV Auto (RBC) [Entitic vol]Ordered By: Sushant Cordon on 60-69-7271YBI (RBC) [Entitic vol]79.9 fLLow83.5-101 [facility] HospitalMagnesium [Mass/volume] in Serum or Plasma Ordered By: Sushant Cordon on 36-45-1889Qtmvppzbe [Mass/Vol]1.8 mg/dLLow 1.9-2.7[facility] HospitalMonocytes Auto (Bld) [#/Vol]Ordered By: Sushant Cordon on 94-86-1500Peeljxype (Bld) [#/Vol]1.0 10*3/uLHigh0.0-0.8 [facility] HospitalMonocytes/100 WBC Auto (Bld)Ordered By: Sushant Cordon on 22-45-9698Lnbtizgpe/100 WBC (Bld)17.6 %.[facility] HospitalNeutrophils Auto (Bld) [#/Vol]Ordered By: Sushant Cordon on 90-16-6448Qzpkwbeqibg (Bld) [#/Vol]3.0 10*3/uL1.8-7.7[facility] HospitalNeutrophils/100 WBC Auto (Bld)Ordered By: Sushant Cordon on 41-98-0342Slhbembqikj/100 WBC (Bld)51.7 %.[facility] HospitalNo Panel InformationOrdered By: Sushant Cordon on 02-08-2024 Estimated GFR (CKD-EPI)> 60.0 mL/MinCleveland Clinic Hillcrest HospitalPharmacy Creatinine Clearance (Chem58.45[facility] HospitalNucleated erythrocytes [Presence] in Blood by Automated countOrdered By: Sushant Cordon on 66-86-0231Bwmefsszd RBC Auto Ql (Bld)0.2 /100{WBC}0-0.5[facility] HospitalPlatelet mean volume Auto (Bld) [Entitic vol]Ordered By: Sushant Cordon on 70-03-2385Npwyqbkv mean volume (Bld) [Entitic vol]11.2 fLHigh6.6-10.1[facility] HospitalPlatelets Auto (Bld) [#/Vol] Ordered By: Sushant Cordon on 99-53-3250Lzhqyfnuy (Bld) [#/Vol]180 10*3/uL 150-450[facility] HospitalPotassium [Moles/volume] in Serum or PlasmaOrdered By: Sushant Cordon on 19-96-9376Bwdamlxai [Moles/Vol]4.4 mmol/L3.5-5.1[facility] HospitalRBC Auto (Bld) [#/Vol]Ordered By: Sushant Cordon on 97-89-2920SRE (Bld) [#/Vol]3.23 10*6/uLLow3.90-5.60 [facility] Systemerum or plasma anion gap determinationOrdered By: Sushant Cordon on 80-15-3489Hcbya gap [Moles/Vol]7.8 mmol/L6.0-15.0 [facility] Systemodium [Moles/volume] in Serum or PlasmaOrdered By: Sushant Cordon on 86-56-7986Jgmkqg [Moles/Vol]135 mmol/RNup410-527 [facility] HospitalUrea nitrogen [Mass/volume] in Serum or Plasma Ordered By: Sushant Cordon on 71-04-7312Emhu nitrogen [Mass/Vol]24 mg/dL -[facility] HospitalWBC Auto (Bld) [#/Vol]Ordered By: Sushant Cordon on 26-04-9572FMP (Bld) [#/Vol]5.7 10*3/uL4.1-10.5[facility] HospitalNo Panel InformationOrdered By: Warren Gross on 49-65-3630Uzakqgl Glucose #[address]/[facility] MemorialBedside Glucose CommentSee commentCleveland Clinic Hillcrest HospitalComment on above:Glu2: Will Repeat TestAlanine aminotransferase [Enzymatic activity/volume] in Serum or PlasmaOrdered By: Sushant Cordon on 81-61-5442ADC [Catalytic activity/Vol]12 U/L7-52[facility] HospitalAlbumin [Mass/volume] in Serum or Plasma by Bromocresol green (BCG) dye binding methoOrdered By: Sushant Cordon on 63-80-1785Kjinooi BCG dye [Mass/Vol]3.2 g/dLLow3.5-5.7[facility] HospitalAlkaline phosphatase [Enzymatic activity/volume] in Serum or PlasmaOrdered By: Sushant Cordon on 07-19-8409MMO [Catalytic activity/Vol]94 U/Y63-044YemlxjgzxCleveland Clinic Hillcrest HospitalAspartate aminotransferase [Enzymatic activity/volume] in Serum or PlasmaOrdered By: Sushant Cordon on 69-83-8441ZLZ [Catalytic activity/Vol]15 U/J08-24FhkdbekxcCleveland Clinic Hillcrest HospitalBilirubin.direct [Mass/volume] in Serum or PlasmaOrdered By: Sushant Cordon on 02-06-2024 Bilirubin.direct [Mass/Vol]0.20 mg/dLHigh0.03-0.18[facility] HospitalBilirubin.total [Mass/volume] in Serum or PlasmaOrdered By: Sushant Cordon on 94-33-5797Hzzztawea [Mass/Vol]1.2 mg/dLHigh0.3-1.0[facility] HospitalGlobulin Calc (S) [Mass/Vol]Ordered By: Sushant Cordon on 23-01-5800Gxepoxnd (S) [Mass/Vol]2.0 g/dLCleveland Clinic Hillcrest HospitalGlucose mean value [Mass/volume] in Blood Estimated from glycated hemoglobinOrdered By: Sushant Cordon on 85-24-3631Zgevllo glucose Estimated from glycated hemoglobin (Bld) [Mass/Vol]194 mg/dLCleveland Clinic Hillcrest HospitalHemoglobin A1c percentageOrdered By: Sushant Cordon on 68-49-3820WyS7h (Bld) [Mass fraction]8.4 %High4.3-5.6[facility] HospitalComment on above:Increased risk for diabetes: 5.7 - 6.4diabetes: >6.4glycemic control for adults with diabetes: <7.0No Panel Information Ordered By: Nayeli Jimenez on 28-69-1793Imiryqd Glucose #3 CommentFollow hypoglycemicCleveland Clinic Hillcrest HospitalProtein [Mass/volume] in Serum or PlasmaOrdered By: Sushant Cordon on 00-99-4726Zkraxcs [Mass/Vol]5.2 g/dL Low6.4-8.9[facility] Systemerum or plasma albumin/globulin mass ratioOrdered By: Sushant Cordon on 78-30-3761Xjzerer/Globulin [Mass ratio]1.6 {ratio}[facility] Systemerum or plasma non- glucuronidated bilirubin measurement (mass/volume)Ordered By: Sushant Cordon on 03-64-8755Zdilazeof.indirect [Mass/Vol]1.0 mg/dLCleveland Clinic Hillcrest HospitalTroponin I.cardiac [Mass/volume] in Serum or Plasma by Detection limit <= 0.01 ng/Ordered By: Sushant Cordon on 15-88-6585Qioopgvj I.cardiac DL <= 0.01 ng/mL [Mass/Vol]60.3 pg/mLHigh0.0-20.0[facility] HospitalComment on above:Critical Result : Called to and read back by: PRAKASH YAP at: 02/06/2024 09:42:22 by:CYNTHIAVitamin D+Metabolites [Mass/volume] in Serum or PlasmaOrdered By: Sushant Cordon on 08-86-1248Jcpssvb D+Metabolites [Mass/Vol]25.0 ng/nTMnd93-874AvofytqdtCleveland Clinic Hillcrest Hospital Comment on above:VITAMIN D STATUS 25(OH)VITAMIN D RANGE (ng/mL) Deficient <20 Insufficient 20 to <49Rrhdleniyv27 to 100Reference: Batsheva MF,Arcadio NC, Ramy MCGEE, et al. Evaluation,treatment, and prevention of vitamin D deficiency; an Endocrine Society clinical practice guideline. JCEM. 2010; 96 (7):1911-30.Acanthocytes [Presence] in Blood by Light microscopyOrdered By: Piage Luther on 75-68-2577Xjwtwjacvwgv LM Ql (Bld)Kindred HealthcareActivated partial thromboplastin time (aPTT) in platelet poor plasma by coagulation aOrdered By: Paige Luther on 92-89-7576uDUJ Coag (PPP) [Time]23.6 sLow25.1-36.5F[facility] HospitalComment on above:A hematocrit value greater than 55% may lead to inaccurate results in coagulation testing. Patientshaving hematocrit values >55% require a special collection tube for coagulation studies. Please contact the laboratory at [phone] for redraw instructions.Alanine aminotransferase [Enzymatic activity/volume] in Serum or PlasmaOrdered By: Paige Luther on 10-56-4905GMV [Catalytic activity/Vol]15 U/L7-52[facility] HospitalAlbumin [Mass/volume] in Serum or Plasma by Bromocresol green (BCG) dye binding methoOrdered By: Paige Luther on 15-31-9615Lqljxqk BCG dye [Mass/Vol]3.3 g/dLLow3.5-5.7[facility] HospitalAlkaline phosphatase [Enzymatic activity/volume] in Serum or PlasmaOrdered By: Paige Luther on 59-14-4803SQI [Catalytic activity/Vol]104 U/I04-337SwrlnsfbqCleveland Clinic Hillcrest HospitalAnisocytosis LM Ql (Bld)Ordered By: Paige Luther on 40-62-1425Xyoswctljcxw Ql (Bld)ModerateCleveland Clinic Hillcrest HospitalAspartate aminotransferase [Enzymatic activity/volume] in Serum or PlasmaOrdered By: Paige Luther on 89-38-8303HNY [Catalytic activity/Vol]15 U/L 13-39[facility] HospitalBasophils Auto (Bld) [#/Vol]Ordered By: Paige Luther on 61-51-8724Cgucevshb (Bld) [#/Vol]0.0 10*3/uL0.0-0.2F[facility] HospitalBasophils/100 WBC Auto (Bld)Ordered By: Paige Luther on 22-20-9123Mqlzdrsfd/100 WBC (Bld)0.4 %.[facility] Bilirubin.direct [Mass/volume] in Serum or PlasmaOrdered By: Paige Luther on 03-13-8431Rzezeumfe.direct [Mass/Vol]0.10 mg/dL0.03-0.18[facility] HospitalBilirubin.total [Mass/volume] in Serum or PlasmaOrdered By: Paige Luther on 51-68-8754Cmifxztvr [Mass/Vol]0.5 mg/dL0.3-1.0[facility] HospitalBurr cells [Presence] in Blood by Light microscopyOrdered By: Paige Luther on 11-51-9850Txds cells LM Ql (Bld)SlightCleveland Clinic Hillcrest HospitalCalcium [Mass/volume] in Serum or PlasmaOrdered By: Paige Luther on 61-39-4911Cwehivb [Mass/Vol]8.6 mg/dL8.6-10.3[facility] HospitalCarbon dioxide, total [Moles/volume] in Serum or PlasmaOrdered By: Paige Luther on 06-18-7542CK5 [Moles/Vol]23.1 mmol/L21.0-31.0[facility] HospitalChloride [Moles/volume] in Serum or PlasmaOrdered By: Paige Luther on 46-38-8708Lmamooqc [Moles/Vol]103 mmol/E20-412UqgygubwfCleveland Clinic Hillcrest HospitalCreatine kinase [Enzymatic activity/volume] in Serum or Plasma Ordered By: Paige Luther on 47-50-4655EJ [Catalytic activity/Vol]114 U/L30-223 [facility] HospitalCreatinine [Mass/volume] in Serum or Plasma Ordered By: Paige Luther on 29-70-5076Bqbucfmbav [Mass/Vol]1.09 mg/dL0.70-1.30 [facility] HospitalEosinophils Auto (Bld) [#/Vol]Ordered By: Paige Luther on 19-80-8208Pjhsnvgkrpx (Bld) [#/Vol]0.0 10*3/uL0.0-0.45 [facility] HospitalEosinophils/100 WBC Auto (Bld)Ordered By: Paige Luther on 43-99-2554Gksljeqexsh/100 WBC (Bld)0.2 %.[facility] HospitalErythrocyte distribution width Auto (RBC) [Ratio]Ordered By: Paige Luther on 53-88-0197Jokkzvfikfe distribution width (RBC) [Ratio]20.3 % High12.0-14.8[facility] HospitalGlobulin Calc (S) [Mass/Vol] Ordered By: Paige Luther on 14-18-7063Anavsnib (S) [Mass/Vol]2.4 g/dLCleveland Clinic Hillcrest HospitalGlucose [Mass/volume] in Serum or PlasmaOrdered By: Paige Luther on 76-76-5362Bsihxbx [Mass/Vol]158 mg/iTZcui66-226NvgzzjrgmCleveland Clinic Hillcrest HospitalComment on above:ADA recommended reference rangeRandom Glucose Reference Range is dependent on time and content of last meal. Glucose of more than 200 mg/dL in a nonstressed, ambulatory subject supports the diagnosisof Diabetes Mellitus.Hematocrit Auto (Bld) [Volume fraction]Ordered By: Paige Luther on [id number] (Bld) [Volume fraction]23.7 %Low38.8-50.0 [facility] HospitalHemoglobin [Mass/volume] in BloodOrdered By: Paige Luther on 14-42-7534Wvvvzzxgap (Bld) [Mass/Vol]7.7 g/dLLow13.0-17.0 [facility] HospitalHemoglobin.gastrointestinal [Presence] in Stool Ordered By: Paige Luther on [id number].gastrointestinal Ql (Stl) [facility] HospitalHypochromia LM Ql (Bld)Ordered By: Paige Luther on 56-76-4685Rxbwmmrastq Ql (Bld)MarkedC[facility] INR in Platelet poor plasma by Coagulation assayOrdered By: Paige Luther on 80-36-3636MUM Coag (PPP) [Relative time]1.3 {INR}[facility] HospitalComment on above:INR Therapeutic Range A) Pre- and [...] by Automated counOrdered By: Paige Luther on 40-22-4994HRP corrected for nucl RBC Auto (Bld) [#/Vol]9.0 10*3/uL4.1-10.5F[facility] HospitalLipase [Enzymatic activity/volume] in Serum or PlasmaOrdered By: Paige Luther on 61-33-1406Cqmiif [Catalytic activity/Vol]5.0 U/LLow11.0-82.0[facility] HospitalLymphocytes Auto (Bld) [#/Vol]Ordered By: Paige Luther on 82-18-2634Ljdlgjohaop (Bld) [#/Vol]1.5 10*3/uL1.00-4.8[facility] HospitalLymphocytes/100 WBC Auto (Bld)Ordered By: Paige Luther on 15-43-7799Qqonybwhuck/100 WBC (Bld)16.3 %.[facility]H Auto (RBC) [Entitic mass]Ordered By: Paige Luther on 22-59-9835QWE (RBC) [Entitic mass]24.9 pgLow27.5-35.2FMemorial Health SystemHC Auto (RBC) [Mass/Vol]Ordered By: Paige Luther on 92-11-5971ZKSU (RBC) [Mass/Vol] 32.6 g/dL32.5-35.6F[facility] HospitalMCV Auto (RBC) [Entitic vol] Ordered By: Paige Luther on 49-81-1961RPS (RBC) [Entitic vol]76.3 fLLow 83.5-101[facility] HospitalMacrocytes LM Ql (Bld)Ordered By: Paige Luther on 56-81-7141Putczoxdoi Ql (Bld)Kindred HealthcareMicrocytes LM Ql (Bld)Ordered By: Paige Luther on 60-73-3242Lhplvmqhbt Ql (Bld)Kindred HealthcareMonocyte distribution width [Entitic volume] in Blood by AutomatedOrdered By: Paige Luther on 02-05-2024 Monocyte distribution width Auto (Bld) [Entitic vol]17.22 %0.00-20.00[facility] HospitalMonocytes Auto (Bld) [#/Vol]Ordered By: Paige Luther on 59-15-7465Fughorjcd (Bld) [#/Vol]0.4 10*3/uL0.0-0.8[facility] HospitalMonocytes/100 WBC Auto (Bld)Ordered By: Paige Luther on 02-05-2024 Monocytes/100 WBC (Bld)4.8 %.[facility] HospitalNatriuretic peptide B [Mass/Vol]Ordered By: Paige Luther on 46-79-6235Vkdwulxmgjz peptide B (Bld) [Mass/Vol]399.0 pg/mLHigh5-100[facility] Neutrophils Auto (Bld) [#/Vol]Ordered By: Paige Luther on 02-05-2024 Neutrophils (Bld) [#/Vol]7.0 10*3/uL1.8-7.7[facility] Neutrophils/100 WBC Auto (Bld)Ordered By: Paige Luther on 02-05-2024 Neutrophils/100 WBC (Bld)78.3 %.[facility] HospitalNo Panel InformationOrdered By: Paige Luther on 09-94-5932Zohyswyqt GFR (CKD-EPI)> 60.0 mL/MinCleveland Clinic Hillcrest HospitalPharmacy Creatinine Clearance (Chem45.07 [facility] Systemlides for Pathologist ReviewOrdered path reviewCleveland Clinic Hillcrest HospitalNucleated erythrocytes [Presence] in Blood by Automated countOrdered By: Paige Luther on 85-44-6177Vkbadhdrl RBC Auto Ql (Bld)0.1 /100{WBC}0-0.5F[facility] HospitalPlatelet adequacy [Presence] in Blood by Light microscopyOrdered By: Paige Luther on 43-35-3412Cofxkhchp LM Ql (Bld)NormalNormalCleveland Clinic Hillcrest Hospital Platelet mean volume Auto (Bld) [Entitic vol]Ordered By: Paige Luther on 03-46-8997Wecxrqis mean volume (Bld) [Entitic vol]10.6 fLHigh6.6-10.1[facility] HospitalPlatelet morphology finding [Identifier] in BloodOrdered By: Paige Luther on 98-88-7425Awnjwmdy morphology finding Nom (Bld)Normal NormalCleveland Clinic Hillcrest HospitalPlatelets Auto (Bld) [#/Vol]Ordered By: Paige Luther on 52-66-7816Lasdtssnx (Bld) [#/Vol]277 10*3/xI975-341TjojscnrfCleveland Clinic Hillcrest HospitalPoikilocytosis [Presence] in Blood by Light microscopy Ordered By: Paige Luther on 83-88-2740Anueakfsmexirc LM Ql (Bld)Marked [facility] HospitalPolychromasia [Presence] in Blood by Light microscopyOrdered By: Paige Lutehr on 32-83-6834Rylpgpcnjnvko LM Ql (Bld) [facility] CenterPotassium [Moles/volume] in Serum or PlasmaOrdered By: Paige Luther on 51-29-9332Gyaaukfdz [Moles/Vol]5.1 mmol/L 3.5-5.1F[facility] HospitalProtein [Mass/volume] in Serum or Plasma Ordered By: Paige Luther on 18-78-2070Yypdrxh [Mass/Vol]5.7 g/dLLow6.4-8.9 [facility] HospitalProthrombin time (PT)Ordered By: Paige Luther on 12-19-7879PK Coag (PPP) [Time]15.5 sHigh9.0-12.9[facility] HospitalComment on above:A hematocrit value greater than 55% may lead to inaccurate results in coagulation testing. Patientshaving hematocrit values >55% require a special collection tube for coagulation studies. Please contact the laboratory at [phone] for redraw instructions.RBC Auto (Bld) [#/Vol]Ordered By: Paige Luther on 56-08-3155AZS (Bld) [#/Vol]3.11 10*6/uLLow3.90-5.60 [facility] HospitalRBC morphologyOrdered By: Paige Luther on 52-07-6005GOI morphology finding Nom (Bld)N/[facility] Schistocytes [Presence] in Blood by Light microscopyOrdered By: Paige Luther on 23-69-5806Tlbtallnyiri LM Ql (Bld)[facility] Serum or plasma albumin/globulin mass ratioOrdered By: Paige Luther on 54-86-4694Mcbtugm/Globulin [Mass ratio]1.4 {ratio}[facility] Systemerum or plasma anion gap determinationOrdered By: Paige Luther on 88-14-3152Ohvib gap [Moles/Vol]12.0 mmol/L6.0-15.0[facility] Health Systemerum or plasma non-glucuronidated bilirubin measurement (mass/volume) Ordered By: Paige Luther on 82-46-3523Ciklqgpvt.indirect [Mass/Vol]0.4 mg/dL [facility] Systemodium [Moles/volume] in Serum or PlasmaOrdered By: Paige Luther on 89-83-9678Ulgqxr [Moles/Vol]133 mmol/MYsp654-081HvaajvotoCleveland Clinic Hillcrest HospitalTarget cellsOrdered By: Paige Luther on 02-05-2024 Target cells LM Ql (Bld)SlightCleveland Clinic Hillcrest HospitalTroponin I.cardiac [Mass/volume] in Serum or Plasma by Detection limit <= 0.01 ng/Ordered By: Paige Luther on 84-92-2826Iukcwruw I.cardiac DL <= 0.01 ng/mL [Mass/Vol] 85.5 pg/mLHigh0.0-20.0[facility] HospitalComment on above:Critical Result : Called to and read back by: PAIGE BENNETT at: 02/06/2024 00:36:33 by:[id number] nitrogen [Mass/volume] in Serum or PlasmaOrdered By: Paige Luther on 99-53-0973Aybk nitrogen [Mass/Vol]58 mg/dLHigh7-25[facility] HospitalWBC Auto (Bld) [#/Vol]Ordered By: Paige Luther on 40-08-8109RCW (Bld) [#/Vol]9.0 10*3/uL4.1-10.5F[facility] HospitalCBC AND AUTO DIFFon 69-64-8308UXQCHRRT BASOPHIL0.1 X10E9/LNormal0.0-0.2POhioHealth Nelsonville Health CenterComment on above:Performed By: #### CBCA, 49067-8, PINR, 76516-9, 01611- 7, 26890-8, 07224-6, THYR, 34825-6, CMP, 89731-1, 2157-6 #### [facility] ([id number]) [address] [place] [address] #### HA1C #### [facility] ([id number]) [address], [address] [place], [place] [address]BVYTHUFKSIQ7+AbnormalNONEProMedica Perrysville HospitalComment on above:Performed By: #### CBCA, 28683-8, PINR, 06061-1, 71768-0, 00438-1, 16111- 4, THYR, 29516-3, CMP, 71941-9, 2157-6 #### [facility] ([id number]) [address] [place] [address] #### HA1C #### [facility] ([id number]) [address], [address] [place], [place] [address]Lmpk form neutrophils/100 WBC (Bld)1.0 %NormalProMedica Perrysville HospitalComment on above:Performed By: #### CBCA, 19013-9, PINR, 55977-1, 64111- 7, 94810-5, 81668-8, THYR, 28884-4, CMP, 36667-2, 7-6 #### [facility] ([id number]) [address] [place] [address] #### HA1C #### [facility] ([id number]) [address], [address] [place], [place] [address]Ufnfuqksm/100 WBC (Bld)1.0 %NormalProCherrington Hospital Hospital Comment on above:Performed By: #### CBCA, 24777-7, PINR, 51083-7, 06501-9, 53612-7, 48568-1, THYR, 65028-9, CMP, 30195-3, 2157-6 #### [facility] ([id number]) [address] [place], [place] [address] #### HA1C #### [facility] ([id number]) [address], [address] [place], [place] [address]VYXL3+AbnormalNONEProMedica Stiles HospitalComment on above: Performed By: #### CBCA, 39572-4, PINR, 68836-9, 38822-8, 86648-6, 97804-8, THYR, 40848-1, CMP, 25577-0, 2156-6 #### [facility] ([id number]) [address] [place] [address] #### HA1C #### [facility] ([id number]) [address] [place] [address], [address] [place], [place] [address]Vcxqetrusur (Bld) [#/Vol]0.2 10*3/uLNormal0.0-0.4ProSt. Francis Hospitalca Dayton Va Medical CenterComment on above:Performed By: #### CBCA, 00685-2, PINR, 73988-6, 23620-4, 07018-1, 85542-4, THYR, 18416-6, CMP, 45530-9, 2156-6 #### [facility] ([id number]) [address] [place] [address] #### HA1C #### [facility] ([id number]) [address] [place] [address], [address] [place], [place] [address]Iyxasdlqdli/100 WBC (Bld)1.9 %NormalProMercy Health Kings Mills Hospital Comment on above:Performed By: #### CBCA, 96672-1, PINR, 28449-1, 75791-4, 52788-4, 17383-2, THYR, 28734-4, CMP, 93066-5, 2156- #### [facility] ([id number]) [address] [place] [address] #### HA1C #### [facility] ([id number]) [address] [place] [address], [address] [place], [place] [address]Wfppjbyorng distribution width (RBC) [Ratio]19.3 %High11.5-15.0 [facility] Va Medical CenterComment on above:Performed By: #### CBCA, 56893-8, PINR, 48229-1, 79790-5, 88032-5, 23686-8, THYR, 08594-9, CMP, 83234-1, 2156-6 #### [facility] ([id number]) [address] [place] [address] #### HA1C #### [facility] ([id number]) [address], [address] [place], [place] [address]ZVOULRDR4+AbnormalNONEProMedica Perrysville HospitalComment on above: Performed By: #### CBCA, 44782-5, PINR, 58878-9, 49854-0, 76399-5, 89625-4, THYR, 01333-6, CMP, 89065-4, 2156- #### [facility] ([id number]) [address] [place] [address] #### HA1C #### [facility] ([id number]) [address], [address] [place], [place] [address]Pcmncstfdk (Bld) [Volume fraction]31.5 %Czu34-30TpkPpuuii Toledo HospitalComment on above:Performed By: #### CBCHe, 15124-7, PINR, 32470-6, 15024- 7, 15934-8, 96229-5, THYR, 86330-7, CMP, 77879-8, 2156- #### [facility] ([id number]) [address] [place] [address] #### HA1C #### [facility] ([id number]) [address], [address] [place], [place] [address]Zebmbipstu (Bld) [Mass/Vol]10.4 g/dLLow13.0-17.0ProMercy Health Kings Mills HospitalComment on above:Performed By: #### CBCA, 14206-3, PINR, 69714-6, 77175-9, 93293-5, 63725-8, THYR, 82948-1, CMP, 32486-4, 2157-6 #### [facility] ([id number]) [address] [place] [address] #### HA1C #### [facility] ([id number]) [address] [place] [address], [address] [place], [place] [address]BBOCAPVHVVL8+AbnormalNONEProMedica Perrysville HospitalComment on above:Performed By: #### CBCA, 49559-5, PINR, 40702-4, 25585-0, 47179-2, 99111- 4, THYR, 10273-8, CMP, 79530-0, 2157-6 #### [facility] ([id number]) [address] [place] [address] #### HA1C #### [facility] ([id number]) [address] [place] [address], [address] [place], [place] [address]OPXIFRGJEU, ATYPICAL1.0 %NormalProMedica Perrysville HospitalComment on above:Performed By: #### CBCA, 72563-7, PINR, 24846-1, 68222-9, 91345-2, 68473-4, THYR, 48621-2, CMP, 15014-4, 2156-6 #### [facility] ([id number]) [address] [place] [address] #### HA1C #### [facility] ([id number]) [address] [place] [address], [address] [place], [place] [address]Yjnpjajzkoq (Bld) [#/Vol]1.9 10*3/uLNormal1.0-3.5ProMedica Perrysville HospitalComment on above:Performed By: #### CBCA, 70361-9, PINR, 92759-2, 80068-9, 97885-5, 66910-4, THYR, 39427-6, CMP, 09173-7, 2157-6 #### [facility] ([id number]) [address] [place] [address] #### HA1C #### [facility] ([id number]) [address], [address] [place], [place] [address]Txzsdhbgskz/100 WBC (Bld)20.0 %NormalSelect Medical Specialty Hospital [facility] Comment on above:Performed By: #### CBCA, 11348-0, PINR, 99617-1, 49111-7, 79249-8, 93447-9, THYR, 38316-3, CMP, 63983-7, 2157-6 #### [facility] ([id number]) [address] [place] [address] #### HA1C #### [facility] ([id number]) [address], [address] [place], [place] [address]VOS (RBC) [Entitic mass]24.6 feHca00-48PtaZtxoxtSelect Medical Specialty Hospital - [place] Comment on above:Performed By: #### CBCA, 60491-4, PINR, 96434-4, 52272-9, 26498-4, 96969-9, THYR, 00103-0, CMP, 63603-9, 2156-6 #### [facility] ([id number]) [address] [place] [address] #### HA1C #### [facility] ([id number]) [address] [facility], [address] [place], [place] [address]YQIF (RBC) [Mass/Vol]32.9 g/bDJraueb06-80XgmAzbynsSelect Medical Specialty Hospital - AkronComment on above:Performed By: #### CBCA, 17911-0, PINR, 79649-7, 21154- 7, 65709-5, 95391-7, THYR, 89242-1, CMP, 84892-6, 7-6 #### [facility] ([id number]) [address] [place] [address] #### HA1C #### [facility] ([id number]) [address], [address] [place], [place] [address]OAR (RBC) [Entitic vol]75 rVZih56-978VmfZnxiubSelect Medical Specialty Hospital - [place] Comment on above:Performed By: #### CBCA, 36590-8, PINR, 19035-3, 36263-6, 09657-4, 07520-4, THYR, 81450-0, CMP, 02666-0, 2157-6 #### [facility] ([id number]) [address] [place] [address] #### HA1C #### [facility] ([id number]) [address] [facility], [address] [place], [place] [address]Lephdpvgj (Bld) [#/Vol]0.9 10*3/uLNormal0-0.9Select Medical Specialty Hospital - AkronComment on above:Performed By: #### CBCA, 49939-4, PINR, 53987-4, 03830- 7, 47583-1, 87618-5, THYR, 94087-0, CMP, 24459-3, 2156-6 #### [facility] ([id number]) [address] [place] [address] #### HA1C #### [facility] ([id number]) [address], [address] [place], [place] [address]Avwhqgvjh/100 WBC (Bld)9.5 %NormalSelect Medical Specialty Hospital - [place] Comment on above:Performed By: #### CBCA, 95310-2, PINR, 90340-2, 69084-0, 87200-8, 44459-3, THYR, 02703-1, CMP, 97436-1, 2156-6 #### [facility] ([id number]) [address] [place] [address] #### HA1C #### [facility] ([id number]) [address] [facility], [address] [place], [place] [address]Zycevjcvmae (Bld) [#/Vol]6.1 10*3/uLNormal1.5-6.6ProMedica [facility]sville HospitalComment on above:Performed By: #### CBCA, 46007-9, PINR, 06480-4, 76889-0, 44944-6, 29671-6, THYR, 01970-9, CMP, 08805-8, 2157-6 #### [facility] ([id number]) [address] [place] [address] #### HA1C #### [facility] ([id number]) [address], [address] [place], [place] [address]Wgjgikgq mean volume (Bld) [Entitic vol]10.6 fLNormal7-12 [facility] HospitalComment on above:Performed By: #### CBCA, 53224-1, PINR, 89780-4, 11876-8, 14951-7, 22291-0, THYR, 42547-4, CMP, 85525-2, 2157-6 #### [facility] ([id number]) [address] [place] [address] #### HA1C #### [facility] ([id number]) [address], [address] [place], [place] [address]Wrcaaqfnh (Bld) [#/Vol]245 10*3/sXEjjcmf910-078UbmTdpzwj [facility] HospitalComment on above:Performed By: #### CBCA, 49033-7, PINR, 58107-6, 33588- 7, 35056-8, 17011-9, THYR, 50374-7, CMP, 81998-1, 2157-6 #### [facility] ([id number]) [address] [place] [address] #### HA1C #### [facility] ([id number]) [address], [address] [place], [place] [address]QAY COUNT4.22 X10E12/LNormal4.10-5.70ProCherrington Hospital Hospital Comment on above:Performed By: #### CBCA, 25604-9, PINR, 14376-4, 12920-4, 98644-6, 93194-6, THYR, 69958-9, CMP, 71520-0, 2157-6 #### [facility] ([id number]) [address] [place] [address] #### HA1C #### [facility] ([id number]) [address] [facility], [address] [place], [place] [address]VDH VJEROQUEEO98.6 %NormalProCherrington Hospital HospitalComment on above:Performed By: #### CBCA, 48707-2, PINR, 17407-2, 82073-0, 54987-5, 42584- 4, THYR, 86235-2, CMP, 36724-5, 2156-6 #### [facility] ([id number]) [address] [place] [address] #### HA1C #### [facility] ([id number]) [address] [place] [address], [address] [place], [place] [address]QIJJLN8+AbnormalNONEProMedica Perrysville HospitalComment on above: Performed By: #### CBCA, 47157-0, PINR, 51122-0, 64817-1, 49939-3, 86909-1, THYR, 13445-5, CMP, 76016-9, 2156-6 #### [facility] ([id number]) [address] [place] [address] #### HA1C #### [facility] ([id number]) [address] [place] [address], [address] [place], [place] [address]PED (Bld) [#/Vol]9.2 10*3/uLNormal4.0-11.0ProCherrington Hospital HospitalComment on above:Performed By: #### CBCA, 30105-9, PINR, 28673-6, 09869- 7, 65165-9, 11044-6, THYR, 54473-0, CMP, 64936-1, 2157-6 #### [facility] ([id number]) [address] [place], [place] [address] #### HA1C #### [facility] ([id number]) [address] [place] [address], [address] [place], [place] [address]QF [Catalytic activity/Vol]on 00-93-4589SYA889 U/KHeer54-322 [facility] HospitalComment on above:Performed By: #### CBCA, 99742-9, PINR, 53254-3, 66740-7, 69948-0, 00779-3, THYR, 93672-6, CMP, 83395-5, 2157-6 #### [facility] ([id number]) [address] [place] [address] #### HA1C #### [facility] ([id number]) [address] [place] [address], [address] [place], [place] [address]ACV325 U/SVwsg96-734XmmVtiqyv [facility]ville HospitalComment on above: Performed By: #### CBCHe, 60467-3, PINR, 50284-4, 41484-1, 27232-9, 95260-8, THYR, 34737-9, CMP, 26120-5, 2157-6 #### [facility] ([id number]) [address] [place] [address] #### HA1C #### [facility] ([id number]) [address] [place] [address], [address] [place], [place] [address]XVWGROOXGHVSW METABOLIC PANELon 62-75-9199Aepmbxu [Mass/Vol]3.4 g/dLNormal3.2-5.3ProMedica [facility] HospitalComment on above:Performed By: #### CBCA, 26190-8, PINR, 34206-5, 63950-1, 90849-0, 92316-3, THYR, 80443-8, CMP, 83021-8, 2157-6 #### [facility] ([id number]) [address] [place] [address] #### HA1C #### [facility] ([id number]) [address] [address], [address] [place], [place] [address]VCS [Catalytic activity/Vol]102 U/ZWxunpp95-334UvbFyrbsv [facility] HospitalComment on above:Performed By: #### CBCA, 47432-1, PINR, 38407-3, 02150- 7, 86728-9, 90686-5, THYR, 01019-8, CMP, 72005-0, 2157-6 #### [facility] ([id number]) [address] [place] [address] #### HA1C #### [facility] ([id number]) [address] [facility] [address], [address] [place], [place] [address]NQM [Catalytic activity/Vol]26 U/LNormal0-40ProMercy Health Kings Mills HospitalComment on above:Performed By: #### CBCA, 01468-8, PINR, 84279-6, 38238- 7, 16060-0, 41203-0, THYR, 49192-1, CMP, 59146-9, 7-6 #### [facility] ([id number]) [address] [place] [address] #### HA1C #### [facility] ([id number]) [address], [address] [place], [place] [address]Aesez gap [Moles/Vol]9 mmol/LNormal5-15ProC[facility] Hospital Comment on above:Performed By: #### CBCA, 19493-4, PINR, 03665-7, 95708-8, 50640-1, 43518-0, THYR, 54484-8, CMP, 84376-5, 2157-6 #### [facility] ([id number]) [address] [place] [address] #### HA1C #### [facility] ([id number]) [address] [place] [address], [address] [place], [place] [address]PBO [Catalytic activity/Vol]31 U/LNormal0-41ProMedica [facility] HospitalComment on above:Performed By: #### CBCA, 65679-6, PINR, 65795-9, 62949- 7, 29496-1, 28628-8, THYR, 16486-2, CMP, 65545-3, 7-6 #### [facility] ([id number]) [address] [place] [address] #### HA1C #### [facility] ([id number]) [address] [place] [address], [address] [place], [place] [address]Wyoxpezzs [Mass/Vol]0.7 mg/dLNormal0.3-1.2Pro[facility] Perrys[facility] HospitalComment on above:Performed By: #### CBCA, 18629-0, PINR, 65351-0, 12462- 7, 46390-0, 40757-5, THYR, 82515-4, CMP, 51671-2, 7-6 #### [facility] ([id number]) [address] [place] [address] #### HA1C #### [facility] ([id number]) [address] [place] [address], [address] [place], [place] [address]Vhlpuik [Mass/Vol]8.5 mg/dLNormal8.5-10.5ProMedDelaware County Hospital HospitalComment on above:Performed By: #### CBCA, 75893-4, PINR, 97059-3, 21163- 7, 46688-9, 09653-3, THYR, 49218-9, CMP, 78246-9, 2157-6 #### [facility] ([id number]) [address] [place] [address] #### HA1C #### [facility] ([id number]) [address], [address] [place], [place] [address]Xxwjtaua [Moles/Vol]103 mmol/DGoqwfa55-012IacUnnput [place] HospitalComment on above:Performed By: #### WILLIAM, 14688-6, PINR, 35902-9, 51085- 7, 60714-9, 51701-3, THYR, 50520-2, CMP, 98427-5, 2157-6 #### [facility] ([id number]) [address] [place], [place] [id number] #### HA1C #### [facility] ([id number]) [address], [address] [place], [place] [address]DL1 [Moles/Vol]24 mmol/OErvsaj76-25WslDtwrtkOhioHealth [facility] Comment on above:Performed By: #### WILLIAM, 23773-1, PINR, 34152-1, 17770-4, 02831-4, 54965-9, THYR, 68684-0, CMP, 30897-2, 2156-6 #### [facility] ([id number]) [address] [place] [address] #### HA1C #### [facility] ([id number]) [address], [address] [place], [place] [address]Eazptjqqec [Mass/Vol]0.77 mg/dLNormal0.60-1.30ProMercy Health Kings Mills HospitalComment on above:Result Comment: METHOD TRACEABLE TO IDMS STANDARD Performed By: #### CBCA, 39875-8, PINR, 59321-2, 95430-0, 02333-7, 42198-1, THYR, 15921-5, CMP, 99541-9, 7-6 #### [facility] ([id number]) [address] [place], [place] [address] #### HA1C #### [facility] ([id number]) [address], [address] [place], [place] [address]HUO/1.73 sq M.predicted among non-blacks MDRD (S/P/Bld) [Vol rate/Area]87 mL/min/{1.73_m2}Normal>59ProMercy Health Kings Mills HospitalComment on above: Result Comment: Reported eGFR is based on the CKD-EPI 2020 equation that does not use a race coefficient.Performed By: #### CBCA, 50105-1, PINR, 52191-7, 88615-6, 98786-5, 17220-3, THYR, 36771-0, CMP, 06511-5, 2156- #### [facility] ([id number]) [address] [place] [address] #### HA1C #### [facility] ([id number]) [address], [address] [place], [place] [address]Paqihqg [Mass/Vol]167 mg/uZPzel35-27XzgFeyvpmMercy Health Kings Mills Hospital Comment on above:Performed By: #### WILLIAM, 34943-1, PINR, 63776-3, 56651-4, 28548-5, 95681-1, THYR, 82009-8, CMP, 33084-5, 2156- #### [facility] ([id number]) [address] [place] [address] #### HA1C #### [facility] ([id number]) [address], [facility] [address] [place], [place] [address]Ehbnnwvcd [Moles/Vol]4.0 mmol/LNormal3.5-5.0ProMercy Health Kings Mills HospitalComment on above:Performed By: #### CBCA, 23028-2, PINR, 60731-3, 70298- 7, 79914-6, 35029-0, THYR, 77068-2, CMP, 80359-9, 2156- #### [facility] ([id number]) [address] [place] [address] #### HA1C #### [facility] ([id number]) [address], [address] [place], [place] [address]Grqsfrn [Mass/Vol]6.0 g/dLNormal6.0-8.0ProMercy Health Kings [facility] Hospital Comment on above:Performed By: #### CBCA, 17911-1, PINR, 86125-4, 12446-1, 50818-3, 16709-3, THYR, 00491-5, CMP, 32546-2, 2156-6 #### [facility] ([id number]) [address] [place] [address] #### HA1C #### [facility] ([id number]) [address] [facility], [address] [place], [place] [address]Jvtpht [Moles/Vol]136 mmol/PHwtzuf075-671MceEkbmxv [place] HospitalComment on above:Performed By: #### CBCA, 73624-5, PINR, 65913-1, 96114- 7, 61866-2, 84989-0, THYR, 85050-1, CMP, 75260-3, 2156- #### [facility] ([id number]) [address] [place] [address] #### HA1C #### [facility] ([id number]) [address], [address] [place], [place] [address]Ysyp nitrogen [Mass/Vol]16 mg/dLNormal5-27ProMercy Health Kings Mills HospitalComment on above:Performed By: #### CBCA, 30436-0, PINR, 50691-8, 19610- 7, 22075-6, 63139-6, THYR, 66090-6, CMP, 84654-8, 2156- #### [facility] ([id number]) [address] [place] [address] #### HA1C #### [facility] ([id number]) [address], [address] [place], [place] [address]Geltgbb Glucometer (BldC) [Mass/Vol]on 30-96-3102Rdmcqtx [Mass/Vol]371 mg/zUNgyf93-46HtzMdvnup [facility] HospitalGlucose [Mass/Vol]181 mg/dL Aoei19-74SerNrlyvt [place] HospitalMAGNESIUMon 95-06-1929Wcwvslocv [Mass/Vol]1.6 mg/dLLow1.8-2.6Pro[facility]ica [facility] HospitalComment on above:Performed By: #### WILLIAM, 97780-3, PINR, 70798-7, 10666-7, 60828-8, 82276-6, THYR, 33259-3, CMP, 76289-5, 2156-6 #### [facility] ([id number]) [facility] [place] [address] #### HA1C #### [facility] ([id number]) [address] [facility], [address] [place], [place] [address]YZ [Catalytic activity/Vol]on 02-97-6411HMW079 U/YShwq56-450 [facility] HospitalComment on above:Performed By: #### WILLIAM, 12564-1, PINR, 29352-8, 10133-6, 92805-9, 51706-5, THYR, 41744-1, CMP, 76234-2, 2156- #### [facility] ([id number]) [address] [place] [address] #### HA1C #### [facility] ([id number]) [address] [facility], [address] [place], [place] [address]FCQ617 U/QLrty43-434XyaDirruh [facility] HospitalComment on above: Performed By: #### WILLIAM, 07836-1, PINR, 60079-3, 60206-4, 74201-6, 54115-9, THYR, 84774-3, CMP, 44748-5, 2156- #### [facility] ([id number]) [address] [place], [place] [address] #### HA1C #### [facility] ([id number]) [address] [place] [address], [address] [place], [place] [address]VHC113 U/AMmog09-954GizSlwheo [place] HospitalComment on above: Performed By: #### CBCA, 90032-0, PINR, 71507-1, 93990-2, 46999-1, 00674-9, THYR, 28188-2, CMP, 25223-8, 2157-6 #### [facility] ([id number]) [address] [place] [address] #### HA1C #### [facility] ([id number]) [address] [place] [address], [address] [place] [address]ZAZUTDQC BLOOD COUNTon 52-12-8336Wiliswbjjbv distribution width (RBC) [Ratio]19.8 %High11.5-15.0ProCherrington Hospital HospitalComment on above: Performed By: #### CBCA, 11217-4, PINR, 81918-9, 52433-2, 71566-6, 52031-7, THYR, 60339-7, CMP, 14093-6, 7-6 #### [facility] ([id number]) [address] [place] [address] #### HA1C #### [facility] ([id number]) [address] [place] [address], [address] [place] [address]Dqanzjvxdf (Bld) [Volume fraction]34.0 %Kpw57-99DdwShmfkp [facility] HospitalComment on above:Performed By: #### CBCA, 15530-8, PINR, 72644-8, 61271- 7, 05182-2, 63583-3, THYR, 03834-0, CMP, 37898-8, 2157-6 #### [facility] ([id number]) [address] [place], [place] [address] #### HA1C #### [facility] ([id number]) [address], [address] [place], [place] [address]Wxlofatbgd (Bld) [Mass/Vol]11.0 g/dLLow13.0-17.0ProMercy Health Kings Mills HospitalComment on above:Performed By: #### CBCA, 86495-6, PINR, 12833-5, 25435-9, 08649-8, 48428-4, THYR, 24217-4, CMP, 05810-0, 2157-6 #### [facility] ([id number]) [address] [place] [address] #### HA1C #### [facility] ([id number]) [address] [facility], [address] [place], [place] [address]DAZ (RBC) [Entitic mass]24.3 ebMjg31-20DkvKjjvbv [facility] Comment on above:Performed By: #### CBCA, 53134-4, PINR, 13951-7, 34331-2, 25542-0, 58632-4, THYR, 74801-3, CMP, 55176-0, 2156-6 #### [facility] ([id number]) [address] [place] [address] #### HA1C #### [facility] ([id number]) [address], [address] [place], [place] [address]ITZF (RBC) [Mass/Vol]32.3 g/uGRoskjo54-31SreGqsisz [facility] HospitalComment on above:Performed By: #### CBCA, 80449-9, PINR, 56982-8, 06188- 7, 08033-9, 49632-7, THYR, 88200-8, CMP, 20151-4, 2156-6 #### [facility] ([id number]) [address] [place] [address] #### HA1C #### [facility] ([id number]) [address], [address] [place], [place] [address]HGH (RBC) [Entitic vol]75 zJDxm84-156SlbTfznnoMercy Health Kings Mills Hospital Comment on above:Performed By: #### CBCA, 88151-6, PINR, 46821-6, 99683-3, 27360-0, 03997-6, THYR, 04312-2, CMP, 57246-0, 2157-6 #### [facility] ([id number]) [address] [place] [address] #### HA1C #### [facility] ([id number]) [address], [address] [place], [place] [address]Mrrolhqd mean volume (Bld) [Entitic vol]10.5 fLNormal7-12 [facility] Va Medical CenterComment on above:Performed By: #### CBCA, 31753-7, PINR, 73812-1, 78540-3, 56477-2, 31758-2, THYR, 35477-3, CMP, 01107-2, 7-6 #### [facility] ([id number]) [address] [place] [address] #### HA1C #### [facility] ([id number]) [address], [address] [place], [place] [address]Ykpetdssv (Bld) [#/Vol]237 10*3/hADlrtgc865-034StoPliwxm [facility] HospitalComment on above:Performed By: #### CBCA, 18677-9, PINR, 29404-3, 35020- 7, 16937-6, 81562-5, THYR, 38006-7, CMP, 19776-9, 7-6 #### [facility] ([id number]) [address] [place] [address] #### HA1C #### [facility] ([id number]) [address] [facility], [address] [place], [place] [address]TCX COUNT4.51 X10E12/LNormal4.10-5.70[facility] Comment on above:Performed By: #### CBCA, 94737-0, PINR, 92725-2, 50667-3, 53293-9, 32694-9, THYR, 81311-4, CMP, 05256-9, 2157-6 #### [facility] ([id number]) [address] [place] [address] #### HA1C #### [facility] ([id number]) [address] [place] [address], [address] [place], [place] [address]LCA (Bld) [#/Vol]12.3 10*3/uLHigh4.0-11.0ProMercy Health Kings Mills HospitalComment on above:Performed By: #### CBCA, 42554-3, PINR, 41557-0, 29196- 7, 23179-2, 89050-6, THYR, 48956-5, CMP, 06067-1, 2157-6 #### [facility] ([id number]) [address] [place] [address] #### HA1C #### [facility] ([id number]) [address] [place] [address], [address] [place], [place] [address]VROTDYHQULXHL METABOLIC PANELon 82-07-1827Nesaijn [Mass/Vol]3.7 g/dLNormal3.2-5.3ProMedAdams County Regional Medical CenterComment on above:Performed By: #### CBCA, 82477-7, PINR, 86187-6, 82871-6, 74920-4, 63113-5, THYR, 43915-8, CMP, 94953-7, 2157-6 #### [facility] ([id number]) [address] [place] [address] #### HA1C #### [facility] ([id number]) [address] [place] [address], [address] [place], [place] [address]LVC [Catalytic activity/Vol]117 U/TOqaxnh92-040LrrWhxyqt [facility] HospitalComment on above:Performed By: #### WILLIAM, 31898-8, PINR, 99293-6, 02791- 7, 86253-9, 85251-8, THYR, 45117-8, CMP, 52610-6, 2157-6 #### [facility] ([id number]) [address] [place] [address] #### HA1C #### [facility] ([id number]) [address] [place] [address], [address] [place], [place] [address]IIH [Catalytic activity/Vol]29 U/LNormal0-40Pro[facility] HospitalComment on above:Performed By: #### WILLIAM, 85816-0, PINR, 77537-0, 78182- 7, 68577-5, 31289-2, THYR, 30804-8, CMP, 15674-4, 2157-6 #### [facility] ([id number]) [address] [place] [address] #### HA1C #### [facility] ([id number]) [address] [place] [address], [address] [place], [place] [address]Cnkin gap [Moles/Vol]13 mmol/LNormal5-15ProSt. Francis Hospitalca [facility] HospitalComment on above:Performed By: #### WILLIAM, 43600-3, PINR, 62773-7, 03881- 7, 28237-7, 43082-7, THYR, 28779-8, CMP, 27289-7, 2157-6 #### [facility] ([id number]) [address] [place] [address] #### HA1C #### [facility] ([id number]) [address] [place] [address], [address] [place], [place] [address]XRJ [Catalytic activity/Vol]51 U/LHigh0-41[facility] HospitalComment on above:Performed By: #### WILLIMA, 62832-7, PINR, 80246-9, 72712- 7, 91412-0, 01341-9, THYR, 33907-5, CMP, 93263-9, 2156-6 #### [facility] ([id number]) [address] [place] [address] #### HA1C #### [facility] ([id number]) [address] [facility], [address] [place], [place] [address]Bnjjaqrui [Mass/Vol]0.7 mg/dLNormal0.3-1.2ProMedDel[facility] Hospital HospitalComment on above:Performed By: #### CBCA, 65134-9, PINR, 28332-4, 38126- 7, 31710-5, 18445-6, THYR, 49639-0, CMP, 28398-2, 2156-6 #### [facility] ([id number]) [address] [place] [address] #### HA1C #### [facility] ([id number]) [address] [facility], [address] [place], [place] [address]Gshitsd [Mass/Vol]8.5 mg/dLNormal8.5-10.5ProMedDel[facility] County Hospital HospitalComment on above:Performed By: #### CBCA, 19074-0, PINR, 39811-3, 77368- 7, 53973-0, 33010-1, THYR, 58486-3, CMP, 11544-2, 2156-6 #### [facility] ([id number]) [address] [place] [address] #### HA1C #### [facility] ([id number]) [address] [facility], [address] [place], [place] [address]Ywieodtu [Moles/Vol]103 mmol/UOfqjwn37-623ChuQvysqf [facility] HospitalComment on above:Performed By: #### CBCA, 08262-3, PINR, 00117-6, 83153- 7, 59773-5, 63284-0, THYR, 98397-0, CMP, 33508-0, 7-6 #### [facility] ([id number]) [address] [place] [address] #### HA1C #### [facility] ([id number]) [address] [facility], [address] [place], [place] [address]BJ4 [Moles/Vol]19 mmol/PMhq92-91JhwFeehbz [facility] Va Medical CenterComment on above:Performed By: #### WILLAIM, 31921-7, PINR, 16802-7, 40966-9, 01563-2, 24682-5, THYR, 14006-1, CMP, 92724-2, 2156-6 #### [facility] ([id number]) [address] [place] [address] #### HA1C #### [facility] ([id number]) [address] [place] [address], [address] [place] [address]Tzcxhrxgdf [Mass/Vol]0.72 mg/dLNormal0.60-1.30ProMercy Health Kings Mills HospitalComment on above:Result Comment: METHOD TRACEABLE TO IDMS STANDARD Performed By: #### WILLIAM, 21038-9, PINR, 44890-2, 25649-4, 13602-9, 61065-3, THYR, 21652-1, CMP, 89901-0, 2156-6 #### [facility] ([id number]) [address] [place] [address] #### HA1C #### [facility] ([id number]) [address] [facility], [address] [place], [place] [address]REX/1.73 sq M.predicted among non-blacks MDRD (S/P/Bld) [Vol rate/Area]89 mL/min/{1.73_m2}Normal>59ProMercy Health Kings Mills HospitalComment on above: Result Comment: Reported eGFR is based on the CKD-EPI 2020 equation that does not use a race coefficient.Performed By: #### CBCA, 44789-6, PINR, 21269-4, 75765-8, 95691-0, 44826-0, THYR, 11900-0, CMP, 50611-7, 2156-6 #### [facility] ([id number]) [address] [place] [address] #### HA1C #### [facility] ([id number]) [address], [address] [place], [place] [address]Pdasjvu [Mass/Vol]208 mg/mEDrmk22-97DlkXhzzgvMercy Health [facility] Hospital Comment on above:Performed By: #### CBCA, 48897-5, PINR, 97018-7, 99817-4, 77775-6, 38534-9, THYR, 80648-5, CMP, 94400-3, 2156-6 #### [facility] ([id number]) [address] [place] [address] #### HA1C #### [facility] ([id number]) [address], [address] [place], [place] [address]Lntlcoqiu [Moles/Vol]4.2 mmol/LNormal3.5-5.0ProMercy Health Kings Mills HospitalComment on above:Performed By: #### CBCHe, 21036-5, PINR, 23554-5, 30733- 7, 83338-1, 99905-3, THYR, 48314-5, CMP, 49384-9, 2156-6 #### [facility] ([id number]) [address] [place], [place] [address] #### HA1C #### [facility] ([id number]) [address], [address] [place], [place] [address]Cjysntb [Mass/Vol]6.6 g/dLNormal6.0-8.0[facility] Comment on above:Performed By: #### CBCA, 67098-3, PINR, 70564-4, 50196-9, 37430-4, 56100-1, THYR, 09004-5, CMP, 64720-0, 2157-6 #### [facility] ([id number]) [address] [place] [address] #### HA1C #### [facility] ([id number]) [address] [place] [address], [address] [place], [place] [address]Snbpgw [Moles/Vol]135 mmol/AMuqtuy409-112HpoSilzqf [facility] HospitalComment on above:Performed By: #### CBCHe, 73186-2, PINR, 00501-1, 54215- 7, 46613-9, 04817-6, THYR, 88473-3, CMP, 45547-8, 2156-6 #### [facility] ([id number]) [address] [place] [address] #### HA1C #### [facility] ([id number]) [address] [place] [address], [address] [place], [place] [address]Apff nitrogen [Mass/Vol]18 mg/dLNormal5-27Pro[facility] HospitalComment on above:Performed By: #### WILLIAM, 90864-8, PINR, 16324-9, 51174- 7, 44092-3, 66570-5, THYR, 84162-8, CMP, 86081-0, 2156- #### [facility] ([id number]) [address] [place] [address] #### HA1C #### [facility] ([id number]) [address] [place] [address], [address] [place], [place] [address]QQFFHSFPCTGAew 03-80-5839QYUMUUTHKUK0+AbnormalNONEProMedica [facility]ville HospitalComment on above:Performed By: #### CBCA, 35862-1, PINR, 35950-2, 34335-9, 52097-5, 99718-6, THYR, 49958-9, CMP, 96563-2, 2156-6 #### [facility] ([id number]) [address] [place] [address] #### HA1C #### [facility] ([id number]) [address], [address] [place], [place] [address]Mrsutgkjeimm Ql (Bld)2+AbnormalNONEProMedica [facility] Comment on above:Performed By: #### CBCA, 22655-2, PINR, 52698-6, 06294-4, 83102-3, 01687-8, THYR, 11104-6, CMP, 18555-3, 2156- #### [facility] ([id number]) [address] [place] [address] #### HA1C #### [facility] ([id number]) [address] [facility], [address] [place], [place] [address]Gnyl form neutrophils/100 WBC (Bld)9.0 %NormalProMedica Dayton Va Medical CenterComment on above:Performed By: #### CBCA, 42620-6, PINR, 67682-0, 82365- 7, 79232-6, 55115-6, THYR, 65915-4, CMP, 91650-2, 2156- #### [facility] ([id number]) [address] [place] [address] #### HA1C #### [facility] ([id number]) [address], [address] [place], [place] [address]CCRW8+AbnormalNONEProMedAdams County Regional Medical CenterComment on above: Performed By: #### CBCA, 43220-6, PINR, 37337-6, 81241-4, 46897-4, 19711-2, THYR, 57731-5, CMP, 78518-8, 2156-12 #### [facility] ([id number]) [address] [place] [address] #### HA1C #### [facility] ([id number]) [address], [address] [place], [place] [address]Jwkizmokhye (Bld) [#/Vol]0.1 10*3/uLNormal0.0-0.4Pro[facility]ica [facility] HospitalComment on above:Performed By: #### CBCA, 37235-3, PINR, 05435-6, 64002-6, 40308-0, 71315-7, THYR, 46394-6, CMP, 91199-8, 2157-6 #### [facility] ([id number]) [address] [place] [address] #### HA1C #### [facility] ([id number]) [address], [address] [place], [place] [address]Lutznnsqbfj/100 WBC (Bld)1.0 %NormalProCherrington Hospital Hospital Comment on above:Performed By: #### CBCA, 70772-1, PINR, 75307-5, 71483-6, 57748-3, 23609-7, THYR, 02144-8, CMP, 59461-0, 2156-6 #### [facility] ([id number]) [address] [place] [address] #### HA1C #### [facility] ([id number]) [address], [address] [place], [place] [address]RLCTRGIX2+AbnormalNONEProMedica [facility]ville HospitalComment on above: Performed By: #### CBCA, 05647-8, PINR, 58421-4, 74597-3, 36499-3, 53462-7, THYR, 23890-8, CMP, 29607-5, 7-6 #### [facility] ([id number]) [address] [place] [address] #### HA1C #### [facility] ([id number]) [address], [address] [place], [place] [address]ZWEBCX-SHOHA BODY1+AbnormalNONEProMedica [facility]ville HospitalComment on above:Performed By: #### CBCA, 58321-3, PINR, 94614-4, 62277-5, 45251-9, 63651-7, THYR, 93583-7, CMP, 04513-8, 2157-6 #### [facility] ([id number]) [address] [place] [address] #### HA1C #### [facility] ([id number]) [address] [place] [address], [address] [place], [place] [address]FVAWJKFHTUR2+AbnormalNONEProMedica [facility] HospitalComment on above:Performed By: #### CBCA, 08470-8, PINR, 95012-2, 00842-8, 30274-7, 89990- 4, THYR, 62281-1, CMP, 89363-9, 7-6 #### [facility] ([id number]) [address] [place] [address] #### HA1C #### [facility] ([id number]) [address] [place] [address], [address] [place], [place] [address]HTASGAKOTF, ATYPICAL1.0 %NormalProMedica Perrysville HospitalComment on above:Performed By: #### CBCA, 65336-0, PINR, 93058-3, 81482-9, 84464-0, 09303-8, THYR, 64784-8, CMP, 66729-0, 2156-6 #### [facility] ([id number]) [address] [place] [address] #### HA1C #### [facility] ([id number]) [address] [place] [address], [address] [place], [place] [address]Eaujcjnwvfp (Bld) [#/Vol]1.6 10*3/uLNormal1.0-3.5Pro[facility]ica [facility] HospitalComment on above:Performed By: #### CBCA, 84200-3, PINR, 20562-5, 95855-4, 27587-0, 86226-5, THYR, 30428-6, CMP, 51182-2, 7-6 #### [facility] ([id number]) [address] [place] [address] #### HA1C #### [facility] ([id number]) [address] [place] [address], [address] [place], [place] [address]Lnsszljtoig/100 WBC (Bld)12.0 %[facility] Comment on above:Performed By: #### CBCA, 50990-4, PINR, 29551-2, 05328-9, 06188-2, 03853-7, THYR, 32131-6, CMP, 17786-9, 2156-6 #### [facility] ([id number]) [address] [place] [address] #### HA1C #### [facility] ([id number]) [address] [place] [address], [address] [place], [place] [address]Bigvdilvq (Bld) [#/Vol]1.4 10*3/uLHigh0-0.9[facility] - AkronComment on above:Performed By: #### CBCA, 57114-0, PINR, 23897-8, 10172- 7, 93602-0, 67946-4, THYR, 30361-2, CMP, 34610-8, 2156-6 #### [facility] ([id number]) [address] [place] [address] #### HA1C #### [facility] ([id number]) [address] [place] [address], [address] [place], [place] [address]Ukvecznod/100 WBC (Bld)11.0 %[facility] Comment on above:Performed By: #### CBCA, 42227-5, PINR, 83664-4, 08269-7, 26038-2, 04460-1, THYR, 65646-6, CMP, 92425-5, 2157-6 #### [facility] ([id number]) [address] [place] [address] #### HA1C #### [facility] ([id number]) [address] [place] [address], [address] [place], [place] [address]Pjdkpiombff (Bld) [#/Vol]9.2 10*3/uLHigh1.5-6.6[facility] HospitalComment on above:Performed By: #### CBCA, 24484-0, PINR, 61957-4, 48100- 7, 53070-8, 06892-2, THYR, 68591-9, CMP, 13451-7, 2156-6 #### [facility] ([id number]) [address] [place] [address] #### HA1C #### [facility] ([id number]) [address] [place] [address], [address] [place], [place] [address]CDWPHBQCGUTLY3+AbnormalNONEProMedica Perrysville HospitalComment on above:Performed By: #### CBCA, 98768-2, PINR, 55380-5, 20138-0, 08059-4, 20252- 4, THYR, 60540-1, CMP, 57036-3, 2156-6 #### [facility] ([id number]) [address] [place] [address] #### HA1C #### [facility] ([id number]) [address] [place] [address], [address] [place], [place] [address]AES AKWGEHIVYO53.0 %NormalProMedica Perrysville HospitalComment on above:Performed By: #### CBCA, 93718-7, PINR, 69373-5, 27770-1, 89038-9, 66922- 4, THYR, 23268-5, CMP, 94335-6, 2156-6 #### [facility] ([id number]) [address] [place], [place] [id number] #### HA1C #### [facility] ([id number]) [address], [address] [place], [place] [address]PVYNVRWUWD8+AbnormalNONEPKeenan Private Hospital HospitalComment on above:Performed By: #### WILLIAM, 50219-9, PINR, 87800-6, 98790-4, 74673-5, 14368- 4, THYR, 13374-0, CMP, 95008-2, 2157-6 #### [facility] ([id number]) [address] [place] [address] #### HA1C #### [facility] ([id number]) [address], [address] [place], [place] [address]ALKLID9+AbnormalNONEProMedDelaware County Hospital HospitalComment on above: Performed By: #### WILLIAM, 28717-1, PINR, 42007-5, 54150-4, 14558-7, 85335-9, THYR, 67912-1, CMP, 89360-4, 2157-6 #### [facility] ([id number]) [address] [place] [address] #### HA1C #### [facility] ([id number]) [address], [address] [place], [place] [address]Wnjqsvr Glucometer (BldC) [Mass/Vol]on 75-94-3784Vmhqtsc [Mass/Vol]274 mg/zUZkre85-14TcwEjbjrgMercy Health Kings Mills HospitalGlucose [Mass/Vol]426 mg/dL Critically pann18-11EiaLykfcaMercy Health Kings Mills HospitalGlucose [Mass/Vol]450 mg/dL Critically mepi75-74XewGdexwg [place] HospitalGlucose [Mass/Vol]245 mg/dLHigh 65-99ProMercy Health Kings Mills HospitalHeparin unfractionated Chromogenic method Qn (PPP) on 15-73-6497INTY XA UFH0.38 IU/mLNormal0.30-0.70[facility] Comment on above:Result Comment: Optimal time for testing is 6 hrs post dosage This test is specific for monitoring patients on UFH, and is not recommended for use with other Anti-Xa medications.Performed By: #### CBCA, 16657-2, PINR, 32755-7, 02535-9, 86620-3, 56314-5, THYR, 54230-2, CMP, 84947-3, 2157-6 #### [facility] ([id number]) [address] [place] [address] #### HA1C #### [facility] ([id number]) [address] [facility], [address] [place], [place] [address]NIZF XA UFH0.44 IU/mLNormal0.30-0.70[facility] Comment on above:Result Comment: Optimal time for testing is 6 hrs post dosage This test is specific for monitoring patients on UFH, and is not recommended for use with other Anti-Xa medications.Performed By: #### WILLIAM, 37550-0, PINR, 36544-3, 12249-0, 45202-1, 50921-4, THYR, 52446-0, CMP, 36116-0, 2156-6 #### [facility] ([id number]) [address] [place] [address] #### HA1C #### [facility] ([id number]) [address] [facility], [address] [place], [place] [address]FBWSBIHGYlw 69-54-9255Smfppebum [Mass/Vol]1.8 mg/dLNormal1.8-2.6 [facility] CenterComment on above:Performed By: #### CBCA, 49598-6, PINR, 47019-9, 23341-4, 18047-3, 39822-0, THYR, 30449-0, CMP, 69495-7, 2157-6 #### [facility] ([id number]) [facility] [place] [address] #### HA1C #### [facility] ([id number]) [address], [address] [place], [place] [address]XGE AND AUTO DIFFon 47-05-6659LSCDXKWOCFD4+AbnormalNONEProMedDelaware County Hospital HospitalComment on above:Performed By: #### CBCA, 83518-1, PINR, 94576- 9, 20149-8, 32996-5, 17548-3, THYR, 48668-1, CMP, 99592-3, 2157-6 #### [facility] ([id number]) [address] [place] [address] #### HA1C #### [facility] ([id number]) [address], [address] [place], [place] [address]Fcittifqtmun Ql (Bld)2+AbnormalNONEPKeenan Private Hospital Hospital Comment on above:Performed By: #### CBCA, 44376-5, PINR, 56409-6, 58046-7, 86022-8, 16983-3, THYR, 91874-9, CMP, 41740-9, 2157-6 #### [facility] ([id number]) [address] [place] [address] #### HA1C #### [facility] ([id number]) [address], [address] [place], [place] [address]Ouzd form neutrophils/100 WBC (Bld)7.0 %NormalProMedica Perrysville HospitalComment on above:Performed By: #### CBCA, 62678-2, PINR, 40401-0, 17220- 7, 22922-2, 48456-9, THYR, 77860-9, CMP, 12967-1, 2157-6 #### [facility] ([id number]) [address] [place], [place] [address] #### HA1C #### [facility] ([id number]) [address], [address] [place], [place] [address]BYUD3+AbnormalNONEPKeenan Private Hospital HospitalComment on above: Performed By: #### CBCA, 29574-6, PINR, 11935-8, 16705-6, 67865-2, 13464-2, THYR, 10070-7, CMP, 57778-2, 2156-6 #### [facility] ([id number]) [address] [place] [address] #### HA1C #### [facility] ([id number]) [address] [place] [address], [address] [place], [place] [address]Ppeublfrgfk (Bld) [#/Vol]0.6 10*3/uLHigh0.0-0.4ProMercy Health Kings Mills HospitalComment on above:Performed By: #### CBCA, 76052-0, PINR, 77657-4, 88651- 7, 18981-5, 68116-5, THYR, 35789-9, CMP, 76609-9, 2156- #### [facility] ([id number]) [address] [place] [address] #### HA1C #### [facility] ([id number]) [address] [place] [address], [address] [place], [place] [address]Wbqnddzrdpc/100 WBC (Bld)7.0 %NormalSelect Medical Specialty Hospital - [facility] Comment on above:Performed By: #### CBCA, 58717-5, PINR, 47994-4, 50968-3, 99432-6, 88178-2, THYR, 27121-7, CMP, 23455-5, 2156- #### [facility] ([id number]) [address] [place] [address] #### HA1C #### [facility] ([id number]) [address] [place] [address], [address] [place], [place] [address]Kuscjryfdip distribution width (RBC) [Ratio]19.3 %High11.5-15.0 [facility] Va Medical CenterComment on above:Performed By: #### CBCA, 18872-3, PINR, 48560-8, 84793-7, 84313-1, 36488-7, THYR, 68464-0, CMP, 65034-3, 2156-6 #### [facility] ([id number]) [address] [place] [address] #### HA1C #### [facility] ([id number]) [address], [address] [place], [place] [address]UZHPERZU6+AbnormalNONEProMedica Perrysville HospitalComment on above: Performed By: #### CBCA, 64888-7, PINR, 35804-2, 18960-0, 29149-2, 87075-9, THYR, 35853-4, CMP, 25678-1, 2156- #### [facility] ([id number]) [address] [place] [address] #### HA1C #### [facility] ([id number]) [address], [address] [place], [place] [address]Tlwymlzeuq (Bld) [Volume fraction]29.9 %Jzn49-50JcgEkqmld [facility] HospitalComment on above:Performed By: #### CBCA, 16363-7, PINR, 86272-5, 22536- 7, 96224-0, 46970-1, THYR, 61368-9, CMP, 40835-7, 2156- #### [facility] ([id number]) [address] [place] [address] #### HA1C #### [facility] ([id number]) [address], [address] [place], [place] [address]Gzukzzdqrx (Bld) [Mass/Vol]10.0 g/dLLow13.0-17.0ProSt. Francis Hospitalca [place] HospitalComment on above:Performed By: #### CBCA, 85880-1, PINR, 79366-9, 75840-8, 09025-9, 40914-8, THYR, 52614-7, CMP, 44823-8, 2157-6 #### [facility] ([id number]) [address] [place] [address] #### HA1C #### [facility] ([id number]) [address] [place] [address], [address] [place], [place] [address]AXMRTU-TZCGZ BODY1+AbnormalNONEProMedica Perrysville HospitalComment on above:Performed By: #### CBCA, 74353-5, PINR, 18988-0, 75258-0, 61795-1, 42099-3, THYR, 31951-9, CMP, 21381-4, 2157-6 #### [facility] ([id number]) [address] [place] [address] #### EVERARDO1C #### [facility] ([id number]) [address] [place] [address], [address] [place], [place] [address]PGYALMXYBJP3+AbnormalNONEProMedica Perrysville HospitalComment on above:Performed By: #### CBCA, 37377-7, PINR, 83873-4, 89983-8, 63815-9, 76291- 4, THYR, 08378-7, CMP, 02221-0, 2156-6 #### [facility] ([id number]) [address] [place] [address] #### HA1C #### [facility] ([id number]) [address] [place] [address], [address] [place], [place] [address]Aebmthvhika (Bld) [#/Vol]1.9 10*3/uLNormal1.0-3.5ProMedica [facility] HospitalComment on above:Performed By: #### CBCA, 55120-7, PINR, 32110-9, 42671-4, 25221-4, 67532-1, THYR, 80418-9, CMP, 80466-5, 2157-6 #### [facility] ([id number]) [address] [place] [address] #### HA1C #### [facility] ([id number]) [address], [address] [place], [place] [address]Jgzyazuanvf/100 WBC (Bld)23.0 %NormalSelect Medical Specialty Hospital - [facility] Comment on above:Performed By: #### CBCA, 88449-5, PINR, 85596-2, 74077-6, 61898-2, 11479-7, THYR, 21688-4, CMP, 63522-7, 2156-6 #### [facility] ([id number]) [address] [place] [address] #### HA1C #### [facility] ([id number]) [address], [address] [place], [place] [address]FNT (RBC) [Entitic mass]24.8 nkDbg94-61GaxSwybpqSelect Medical Specialty Hospital - [place] Comment on above:Performed By: #### CBCA, 18489-2, PINR, 98456-7, 49505-8, 16676-9, 44629-4, THYR, 36410-2, CMP, 05071-9, 2156-6 #### [facility] ([id number]) [address] [place] [address] #### HA1C #### [facility] ([id number]) [address], [address] [place], [place] [address]VZRN (RBC) [Mass/Vol]33.4 g/zRCqtchg46-65EybBuevivSelect Medical Specialty Hospital - AkronComment on above:Performed By: #### CBCA, 76316-0, PINR, 94778-8, 29241- 7, 05465-6, 82812-7, THYR, 12347-4, CMP, 05814-2, 2156-6 #### [facility] ([id number]) [address] [place] [address] #### HA1C #### [facility] ([id number]) [address], [address] [place], [place] [address]KHF (RBC) [Entitic vol]74 eZSlz11-620GchZglbufSelect Medical Specialty Hospital [facility] [place] Comment on above:Performed By: #### CBCA, 92478-8, PINR, 38098-6, 96872-9, 13499-1, 43497-6, THYR, 74088-2, CMP, 74813-6, 2157-6 #### [facility] ([id number]) [address] [place] [address] #### HA1C #### [facility] ([id number]) [address] [facility], [address] [place], [place] [address]Zilnnmzcs (Bld) [#/Vol]0.6 10*3/uLNormal0-0.9Select [facility] Specialty Hospital - AkronComment on above:Performed By: #### CBCA, 36430-4, PINR, 97193-3, 67652- 7, 71442-3, 89762-2, THYR, 76373-8, CMP, 15701-3, 7-6 #### [facility] ([id number]) [address] [place] [address] #### HA1C #### [facility] ([id number]) [address] [facility], [address] [place], [place] [address]Vnhpflcad/100 WBC (Bld)7.0 %NormalProMercy Health Kings Mills Hospital Comment on above:Performed By: #### CBCA, 69074-4, PINR, 74361-6, 07936-8, 55028-5, 11093-7, THYR, 15168-6, CMP, 64667-0, 2156-6 #### [facility] ([id number]) [address] [place] [address] #### HA1C #### [facility] ([id number]) [address], [address] [place], [place] [address]Xdipssvjtau (Bld) [#/Vol]5.1 10*3/uLNormal1.5-6.6ProMedica Stiles HospitalComment on above:Performed By: #### CBCA, 50698-5, PINR, 73812-3, 75232-4, 87911-8, 98706-7, THYR, 41200-1, CMP, 95145-2, 2157-6 #### [facility] ([id number]) [address] [place] [address] #### HA1C #### [facility] ([id number]) [address], [address] [place], [place] [address]Uyvezpjv mean volume (Bld) [Entitic vol]10.1 fLNormal7-12 [facility] Stiles HospitalComment on above:Performed By: #### CBCA, 86636-1, PINR, 06551-1, 33487-2, 56905-7, 48065-1, THYR, 56911-7, CMP, 34366-4, 2157-6 #### [facility] ([id number]) [address] [place] [address] #### HA1C #### [facility] ([id number]) [address], [address] [place], [place] [address]Jhvglbaax (Bld) [#/Vol]228 10*3/xNSsugku319-412GzkUsdvgs [place] HospitalComment on above:Performed By: #### CBCA, 05198-2, PINR, 40514-3, 42360- 7, 71727-5, 91224-4, THYR, 41597-0, CMP, 12878-9, 2157-6 #### [facility] ([id number]) [address] [place] [address] #### HA1C #### [facility] ([id number]) [address], [address] [place], [place] [address]ECOBJXCDEMZQO4+AbnormalNONEProMedica Stiles HospitalComment on above:Performed By: #### CBCA, 77783-2, PINR, 81287-0, 38769-9, 20969-8, 43507- 4, THYR, 86353-1, CMP, 04727-3, 7-6 #### [facility] ([id number]) [address] [place] [address] #### HA1C #### [facility] ([id number]) [address] [place] [address], [address] [place], [place] [address]ARQ COUNT4.03 X10E12/LLow4.10-5.70ProSt. Francis Hospitalca [facility] Comment on above:Performed By: #### CBCA, 61960-2, PINR, 73655-9, 60012-2, 46347-0, 63315-3, THYR, 37241-8, CMP, 83770-0, 2156-6 #### [facility] ([id number]) [address] [place] [address] #### HA1C #### [facility] ([id number]) [address] [place] [address], [address] [place], [place] [address]SCP CTSNTFLKUC01.0 %NormalProMercy Health Kings Mills HospitalComment on above:Performed By: #### CBCA, 04729-5, PINR, 45866-3, 04342-0, 51927-0, 20077- 4, THYR, 74422-0, CMP, 48786-2, 2156-6 #### [facility] ([id number]) [address] [place] [address] #### HA1C #### [facility] ([id number]) [address] [place] [address], [address] [place], [place] [address]TJAKCVQWSI6+AbnormalNONEProMedica Perrysville HospitalComment on above:Performed By: #### CBCA, 71595-4, PINR, 15787-4, 87277-7, 39989-5, 39647- 4, THYR, 66993-1, CMP, 35018-6, 2157-6 #### [facility] ([id number]) [address] [place] [address] #### HA1C #### [facility] ([id number]) [address] [place] [address], [address] [place], [place] [address]NVARPH3+AbnormalNONEProMedica Perrysville HospitalComment on above: Performed By: #### CBCA, 27436-1, PINR, 77702-8, 17563-0, 28946-0, 45491-8, THYR, 59777-8, CMP, 75099-8, 2157-6 #### [facility] ([id number]) [address] [place] [address] #### HA1C #### [facility] ([id number]) [address] [place] [address], [address] [place], [place] [address]JOM (Bld) [#/Vol]8.2 10*3/uLNormal4.0-11.0Pro[facility]ica [facility] HospitalComment on above:Performed By: #### CBCA, 72758-6, PINR, 30478-4, 75971- 7, 12247-5, 32702-2, THYR, 18442-9, CMP, 45003-5, 2157-6 #### [facility] ([id number]) [address] [place] [address] #### HA1C #### [facility] ([id number]) [address] [place] [address], [address] [place], [place] [address]EO [Catalytic activity/Vol]on 74-78-7389RIW4011 U/LRvbs47-957 [facility] HospitalComment on above:Performed By: #### CBCA, 82780-0, PINR, 24985-5, 75929-7, 13949-6, 22074-9, THYR, 41842-3, CMP, 64260-7, 2157-6 #### [facility] ([id number]) [address] [place] [address] #### HA1C #### [facility] ([id number]) [address] [place] [address], [address] [place], [place] [address] U/ZGwim26-043FzkSvndlmMercy Health Kings Mills HospitalComment on above: Performed By: #### CBCA, 66536-9, PINR, 71103-2, 66001-4, 17705-2, 26192-0, THYR, 17950-2, CMP, 84506-6, 2157-6 #### [facility] ([id number]) [address] [place] [address] #### HA1C #### [facility] ([id number]) [address] [place] [address], [address] [place], [place] [address]JOP[address] U/YOozk87-401BneLmabipMercy Health Kings Mills HospitalComment on above: Performed By: #### CBCA, 35446-0, PINR, 15054-4, 62190-1, 92741-9, 57128-3, THYR, 62672-1, CMP, 43814-0, 2157-6 #### [facility] ([id number]) [address] [place] [address] #### HA1C #### [facility] ([id number]) [address] [place] [address], [address] [place] [id number] METABOLIC PANELon 26-50-6548Voltfgy [Mass/Vol]3.4 g/dLNormal3.2-5.3Pro[facility] Va Medical CenterComstraith hospital for special surgery on above:Performed By: #### CBCA, 56109-3, PINR, 38993-4, 83002-5, 84735-2, 91657-2, THYR, 76937-2, CMP, 01385-5, 2157-6 #### [facility] ([id number]) [address] [place] [address] #### HA1C #### [facility] ([id number]) [address], [address] [place], [place] [address]FRT [Catalytic activity/Vol]109 U/SVexpin57-604FfrBnlorl [facility] HospitalComment on above:Performed By: #### CBCA, 65022-0, PINR, 41624-8, 15962- 7, 41570-1, 82464-9, THYR, 71628-7, CMP, 27018-3, 2157-6 #### [facility] ([id number]) [address] [place], [place] [address] #### HA1C #### [facility] ([id number]) [address] [facility], [address] [place], [place] [address]HQR [Catalytic activity/Vol]27 U/LNormal0-40Pro[facility]ica [facility] HospitalComment on above:Performed By: #### DARRELLA, 61582-1, PINR, 64383-4, 37113- 7, 34792-4, 09873-7, THYR, 82109-2, CMP, 85416-1, 2157-6 #### [facility] ([id number]) [address] [place], [place] [address] #### HA1C #### [facility] ([id number]) [address] [facility], [address] [place], [place] [address]Vylli gap [Moles/Vol]10 mmol/LNormal5-15Pro[facility]ica [facility] HospitalComment on above:Performed By: #### CBCA, 52343-0, PINR, 68161-7, 51249- 7, 88027-9, 25651-9, THYR, 01163-2, CMP, 08664-2, 2157-6 #### [facility] ([id number]) [address] [place], [place] [address] #### HA1C #### [facility] ([id number]) [address] [facility], [address] [place], [place] [address]LCZ [Catalytic activity/Vol]69 U/LHigh0-41ProMercy Health Kings Mills HospitalComment on above:Performed By: #### WILLIAM, 17052-5, PINR, 48113-9, 74852- 7, 16480-6, 29849-4, THYR, 16055-3, CMP, 23329-6, 2157-6 #### [facility] ([id number]) [address] [place] [address] #### HA1C #### [facility] ([id number]) [address] [place] [address], [address] [place], [place] [address]Hwdcidngd [Mass/Vol]0.6 mg/dLNormal0.3-1.2POhioHealth Nelsonville Health CenterComment on above:Performed By: #### WILLIAM, 97198-6, PINR, 59818-9, 59953- 7, 70196-4, 78862-9, THYR, 04880-0, CMP, 14969-9, 7-6 #### [facility] ([id number]) [address] [place] [address] #### HA1C #### [facility] ([id number]) [address] [place] [address], [address] [place], [place] [address]Fjonuli [Mass/Vol]8.2 mg/dLLow8.5-10.5POhioHealth Nelsonville Health Center Comment on above:Performed By: #### WILLIAM, 56495-0, PINR, 91894-2, 00269-2, 59088-7, 43668-2, THYR, 94129-8, CMP, 50937-8, 2157-6 #### [facility] ([id number]) [address] [place] [address] #### HA1C #### [facility] ([id number]) [address] [place] [address], [address] [place], [place] [address]Fbxgmpvn [Moles/Vol]105 mmol/RCvtigu55-191DprMvrogm [facility] HospitalComment on above:Performed By: #### CBCA, 34650-1, PINR, 85896-9, 71560- 7, 31154-2, 36600-5, THYR, 64538-0, CMP, 33964-3, 2156-6 #### [facility] ([id number]) [address] [place] [address] #### HA1C #### [facility] ([id number]) [address] [place] [address], [address] [place], [place] [address]NS5 [Moles/Vol]20 mmol/ZAue01-88ZffYnpbuo [facility] HospitalComment on above:Performed By: #### CBCA, 61152-8, PINR, 15948-3, 97034-6, 53771-2, 52901-5, THYR, 23626-5, CMP, 09921-0, 2156-6 #### [facility] ([id number]) [address] [place] [address] #### HA1C #### [facility] ([id number]) [address] [place] [address], [address] [place], [place] [address]Gnluxstdoz [Mass/Vol]0.79 mg/dLNormal0.60-1.30ProMercy Health Kings Mills HospitalComment on above:Result Comment: METHOD TRACEABLE TO IDMS STANDARD Performed By: #### CBCA, 55342-4, PINR, 48533-2, 36057-0, 50166-3, 79961-7, THYR, 85503-2, CMP, 28773-1, 2156- #### [facility] ([id number]) [address] [place] [address] #### HA1C #### [facility] ([id number]) [address] [place] [address], [address] [place], [place] [address]DAQ/1.73 sq M.predicted among non-blacks MDRD (S/P/Bld) [Vol rate/Area]87 mL/min/{1.73_m2}Normal>59ProMedica [facility] HospitalComment on above: Result Comment: Reported eGFR is based on the CKD-EPI 2020 equation that does not use a race coefficient.Performed By: #### WILLIAM, 55765-1, PINR, 84459-7, 91931-2, 20188-7, 80350-6, THYR, 88816-5, CMP, 71172-6, 215-6 #### [facility] ([id number]) [address] [place] [address] #### HA1C #### [facility] ([id number]) [address] [facility], [address] [place], [place] [address]Zbrqffb [Mass/Vol]189 mg/sYYwgc01-35DlgTrkuvxSelect Medical Specialty Hospital [facility] Comment on above:Performed By: #### WILLIAM, 90228-5, PINR, 40677-5, 40769-2, 56656-0, 59099-7, THYR, 04782-6, CMP, 23868-4, 2156- #### [facility] ([id number]) [address] [place] [address] #### HA1C #### [facility] ([id number]) [address], [address] [place], [place] [address]Rzqezkffj [Moles/Vol]4.3 mmol/LNormal3.5-5.0Select [facility] Hospital - AkronComment on above:Performed By: #### WILLIAM, 85899-5, PINR, 16733-4, 61073- 7, 73085-3, 80419-9, THYR, 77941-2, CMP, 07537-1, 2156- #### [facility] ([id number]) [address] [place] [address] #### HA1C #### [facility] ([id number]) [address] [facility], [address] [place], [place] [address]Kphvmhn [Mass/Vol]6.1 g/dLNormal6.0-8.0[facility] Comment on above:Performed By: #### CBCA, 51301-8, PINR, 81195-3, 78899-5, 90722-6, 57782-3, THYR, 23056-8, CMP, 85617-2, 2156-6 #### [facility] ([id number]) [address] [place] [address] #### HA1C #### [facility] ([id number]) [address] [facility], [address] [place], [place] [address]Hkyfnu [Moles/Vol]135 mmol/ZIhjesb327-168QvrVpdguo [facility] HospitalComment on above:Performed By: #### CBCA, 89890-3, PINR, 19618-8, 02798- 7, 00070-1, 75997-2, THYR, 81460-2, CMP, 22520-3, 2156- #### [facility] ([id number]) [address] [place] [address] #### HA1C #### [facility] ([id number]) [address] [place] [address], [address] [place], [place] [address]Afsz nitrogen [Mass/Vol]21 mg/dLNormal5-27ProMercy Health Kings Mills HospitalComment on above:Performed By: #### CBCA, 53260-0, PINR, 45357-0, 89329- 7, 91652-0, 15152-6, THYR, 80587-2, CMP, 62000-3, 2156- #### [facility] ([id number]) [address] [place] [address] #### HA1C #### [facility] ([id number]) [address] [place] [address], [address] [place], [place] [address]Tbntbfg Glucometer (BldC) [Mass/Vol]on 80-46-2038Cppqyph [Mass/Vol]155 mg/gKKuak23-99WszQhxjqgMercy Health Kings Mills HospitalGlucose [Mass/Vol]238 mg/dL Orfe27-21KumQickso Stiles HospitalGlucose [Mass/Vol]413 mg/dLCritically high 65-99[facility] Hospital - AkronGlucose [Mass/Vol]218 mg/oHEgwz65-75XisSwkmkxSelect Medical Specialty Hospital - AkronHeparin unfractionated Chromogenic method Qn (PPP)on 01-22-2024 ANTI XA UFH0.28 IU/mLLow0.30-0.70Select [facility] Hospital - AkronComment on above: Result Comment: Optimal time for testing is 6 hrs post dosage This test is specific for monitoring patients on UFH, and is not recommended for use with other Anti-Xa medications.Performed By: #### CBCA, 48959-0, PINR, 93141-2, 32306-2, 76590-0, 34666-9, THYR, 46516-5, CMP, 43147-2, 2156-6 #### [facility] ([id number]) [address] [place] [address] #### HA1C #### [facility] ([id number]) [address] [place] [address], [address] [id number] XA UFH0.24 IU/mLLow0.30-0.70[facility] Comment on above:Result Comment: Optimal time for testing is 6 hrs post dosage This test is specific for monitoring patients on UFH, and is not recommended for use with other Anti-Xa medications.Performed By: #### CBCA, 83440-9, PINR, 40457-6, 90690-0, 79186-7, 87776-5, THYR, 16424-1, CMP, 27834-4, 2156-6 #### [facility] ([id number]) [address] [place] [address] #### HA1C #### [facility] ([id number]) [address] [place] [address], [address] [place] [id number] XA UFH0.23 IU/mLLow0.30-0.70[facility] Comment on above:Result Comment: Optimal time for testing is 6 hrs post dosage This test is specific for monitoring patients on UFH, and is not recommended for use with other Anti-Xa medications.Performed By: #### DARRELLA, 13918-1, PINR, 83403-3, 94484-4, 45188-0, 92480-3, THYR, 12770-6, CMP, 53301-2, 2157-6 #### [facility] ([id number]) [address] [place] [address] #### HA1C #### [facility] ([id number]) [address] [place] [address], [address] [place], [place] [address]Dscjk 1996 panelon [id number] [Mass/Vol]97 mg/dLLow 150-200ProMercy Health Kings Mills HospitalComment on above:Performed By: #### WILLIAM, 23206- 5, PINR, 05705-0, 98737-3, 32173-3, 66469-1, THYR, 15558-8, CMP, 20230-1, 2156- #### [facility] ([id number]) [address] [place] [address] #### HA1C #### [facility] ([id number]) [address] [place] [address], [address] [place], [place] [address]Utzozkuavqx in HDL [Mass/Vol]50 mg/dLNormal>39ProMercy Health Kings Mills HospitalComment on above:Result Comment: HDL <40 mg/dL - High Risk HDL > or = 40mg/dL- Desirable HDL >60 mg/dL - Negative Risk Performed By: #### DARRELLA, 24410-8, PINR, 55927-2, 28717-3, 37579-9, 09303-5, THYR, 46538-5, CMP, 96684-3, 7-6 #### [facility] ([id number]) [address] [place] [address] #### HA1C #### [facility] ([id number]) [address] [place] [address], [address] [place], [place] [address]Frotdvotlni in LDL [Mass/Vol]39 mg/dLNormal<130ProMer[facility] Health Kings Mills HospitalComment on above:Result Comment: LDL <100 mg/dL - Desirable LDL >160 mg/dL - High Risk Performed By: #### WILLIAM, 95571-8, PINR, 50043-1, 40503-2, 20839-6, 17350-8, THYR, 87127-4, CMP, 75305-5, 7-6 #### [facility] ([id number]) [address] [place] [address] #### HA1C #### [facility] ([id number]) [address] [place] [address], [address] [place], [place] [address]Ybacczeuoph in VLDL [Mass/Vol]8 mg/dLNormal0-30ProMercy Health Kings Mills HospitalComment on above:Performed By: #### WILLIAM, 75444-3, PINR, 28113-0, 24044- 7, 63168-6, 80089-4, THYR, 20194-3, CMP, 56421-6, 2157-6 #### [facility] ([id number]) [address] [place] [address] #### HA1C #### [facility] ([id number]) [address] [place] [address], [address] [place], [place] [address]XQVQDCUIRUE:HDL1.8Jstekd7.0-5.0ProMercy Health Kings Mills HospitalComment on above:Performed By: #### WILLIAM, 45811-8, PINR, 98684-2, 33204-4, 78891-8, 05914-9, THYR, 76142-5, CMP, 34898-2, 2157-6 #### [facility] ([id number]) [address] [place] [address] #### HA1C #### [facility] ([id number]) [address], [address] [place], [place] [address]Rpevkceuouln [Mass/Vol]38 mg/nFPklugg34-360RwrTrhluf Perrysville HospitalComment on above:Performed By: #### CBCA, 32917-7, PINR, 49944-4, 87691- 7, 95657-6, 39078-8, THYR, 17731-8, CMP, 87264-5, 2156-6 #### [facility] ([id number]) [address] [place] [address] #### HA1C #### [facility] ([id number]) [address], [address] [place], [place] [address]KIBBZGBWVcd 70-26-5371Guqftkcom [Mass/Vol]2.0 mg/dLNormal1.8-2.6 [facility] HospitalComment on above:Performed By: #### CBCA, 84885-7, PINR, 61751-1, 73202-7, 91165-8, 57175-9, THYR, 42207-9, CMP, 41747-7, 2156-6 #### [facility] ([id number]) [address] [place] [address] #### HA1C #### [facility] ([id number]) [address] [facility], [address] [place], [place] [address]Idedlpotl [Mass/Vol]2.2 mg/dLNormal1.8-2.6Pro[facility] HospitalComment on above:Performed By: #### CBCA, 90201-0, PINR, 68383-9, 35551- 7, 15508-1, 78095-1, THYR, 70476-4, CMP, 56282-4, 7-6 #### [facility] ([id number]) [address] [place] [address] #### HA1C #### [facility] ([id number]) [address] [place] [address], [address] [place] [address]Ziphowiglnyjv [place] [Mass/Vol]on 15-04-3311BBRSVFAFUIBLG4.08 ng/mL High<0.05ProMercy Health Kings Mills HospitalComment on above:Result Comment: NOTE <0.50 ng/mL - Low risk of severe sepsis and/or septic shock. <2.00 ng/mL - Recommend retesting within 6-24 hours. >2.00 ng/mL - High risk of sepsis and/or septic shock.Performed By: #### CBCA, 77372-7, PINR, 25132-1, 21103-6, 91501-2, 27613-0, THYR, 80648-2, CMP, 53122-5, 2156-6 #### [facility] ([id number]) [address] [place] [address] #### HA1C #### [facility] ([id number]) [address] [place] [address], [address] [address]Awqebclv I.cardiac High sensitivity method [Mass/Vol]on 43 HOUR TROP I, HIGH WONFJABIMLB34 ng/LHigh<21ProMer[facility] Comment on above:Result Comment: Elevations of hs-Troponin may be due to causes other than myocardial ischemia. Recommend serial hs-Troponin testing be performed. For the initial evaluation and management of chest pain patients, refer to the algorithms linked below. Emergency Patient: [email or web address] Inpatient: [email or web address] By: #### CBCA, 74276-0, PINR, 45045-1, 50431-3, 31299-8, 32309-4, THYR, 29238- 1, CMP, 31676-7, 2157-6 #### [facility] ([id number]) [address] [place] [address] 24671 #### HA1C #### [facility] ([id number]) [address] [facility] [address], [address] [place], [place] [address] HOUR TROP I, HIGH AJALHEKASME28 ng/LHigh<21ProMedica [facility] Va Medical CenterComment on above:Result Comment: Elevations of hs-Troponin may be due to causes other than myocardial ischemia. Recommend serial hs-Troponin testing be performed. For the initial evaluation and management of chest pain patients, refer to the algorithms linked below. Emergency Patient: [email or web address] Inpatient: [email or web address] By: #### CBCA, 97296-4, PINR, 90366-5, 75368-4, 54248-7, 43722-1, THYR, 59933- 1, CMP, 48071-7, 2157-6 #### [facility] ([id number]) [address] [place] [address] #### HA1C #### [facility] ([id number]) [address], [address] [place], [place] [address]NO WRIST LT MIN 3 VWSon 41-98-6464AD WRIST LT MIN 3 VWSXR WRIST LT [...] Liam Cody MD on 01/22/2024 10:33 PMNormalProMedica Perrysville HospitalBLOOD CULTUREon 87-72-8432Sqjszqov identified Aer cx Nom (Bld)CULTURE RESULTS NO GROWTH 5 DAYSNormalProMercy Health Kings Mills HospitalBacteria identified Aer cx Nom (Bld)CULTURE RESULTS NO GROWTH 5 DAYSNormalProMercy Health Kings Mills HospitalCBC AND AUTO DIFFon 01-21-2024 ABSOLUTE BASOPHIL0.1 X10E9/LNormal0.0-0.2ProMedica [facility] Va Medical CenterComment on above:Performed By: #### CBCA, 83258-2, PINR, 15195-9, 51830-5, 47528-6, 84050- 4, THYR, 31792-0, CMP, 74748-1, 2157-6 #### [facility] ([id number]) [address] [place] [address] #### HA1C #### [facility] ([id number]) [address] [place] [address], [address] [place] [address]21LHNUFCAT NEUTROPHIL7.7 X10E9/LHigh1.5-6.6ProMediLakeHealth Beachwood Medical CenterComment on above:Performed By: #### CBCA, 94347-9, PINR, 74414-0, 54402- 7, 38496-6, 23708-7, THYR, 51719-0, CMP, 30390-9, 2157-6 #### [facility] ([id number]) [address] [place] [address] #### HA1C #### [facility] ([id number]) [address] [place] [address], [address] [place], [place] [address]Ucnwnppgjlzh Ql (Bld)2+AbnormalNONEPOhioHealth Nelsonville Health Center Comment on above:Performed By: #### CBCA, 01959-8, PINR, 95316-4, 99155-8, 18522-8, 64599-7, THYR, 04037-4, CMP, 31359-3, 2157-6 #### [facility] ([id number]) [address] [place] [address] #### HA1C #### [facility] ([id number]) [address] [facility] [address], [address] [place], [place] [address]Rwiltfkqi/100 WBC (Bld)0.8 %NormalProMercy Health [facility] Hospital Comment on above:Performed By: #### CBCA, 53681-0, PINR, 08410-0, 80099-8, 10608-5, 04835-9, THYR, 21589-3, CMP, 75965-1, 2157-6 #### [facility] ([id number]) [address] [place] [address] #### HA1C #### [facility] ([id number]) [address] [facility], [address] [place], [place] [address]UIRA9+AbnormalNONEPKeenan Private Hospital HospitalComment on above: Performed By: #### CBCA, 15249-9, PINR, 11185-5, 37382-9, 23420-0, 43753-5, THYR, 83267-5, CMP, 50961-1, 2157-6 #### [facility] ([id number]) [address] [place], [place] [address] #### HA1C #### [facility] ([id number]) [address] [facility], [address] [place], [place] [address]Spxbuamcsec (Bld) [#/Vol]0.1 10*3/uLNormal0.0-0.4ProMercy Health Kings Mills HospitalComment on above:Performed By: #### CBCA, 92179-4, PINR, 20579-1, 18628-0, 46098-6, 07786-6, THYR, 49347-6, CMP, 69541-2, 7-6 #### [facility] ([id number]) [address] [place] [address] #### HA1C #### [facility] ([id number]) [address] [facility] [address] [address], [address] [place], [place] [address]Kdcwwkbwrqm/100 WBC (Bld)0.7 %NormalProMedica [facility] Center Comment on above:Performed By: #### CBCA, 40212-1, PINR, 56792-3, 27414-8, 74593-9, 15548-1, THYR, 45281-0, CMP, 62570-5, 2156-6 #### [facility] ([id number]) [address] [place] [address] #### HA1C #### [facility] ([id number]) [address] [facility], [address] [place], [place] [address]Ljandgauphz distribution width (RBC) [Ratio]19.9 %High11.5-15.0 [facility] Medical CenterComment on above:Performed By: #### CBCA, 41046-9, PINR, 60771-8, 41825-5, 36881-0, 54215-1, THYR, 08266-9, CMP, 18883-2, 2156-6 #### [facility] ([id number]) [address] [place] [address] #### HA1C #### [facility] ([id number]) [address] [place] [address], [address] [place], [place] [address]JJZFBNPT6+AbnormalNONEProMedica Dayton Va Medical CenterComment on above: Performed By: #### CBCA, 66131-2, PINR, 19911-7, 73887-4, 82844-3, 97680-2, THYR, 82289-3, CMP, 08038-0, 2157-6 #### [facility] ([id number]) [address] [place] [address] #### HA1C #### [facility] ([id number]) [address], [address] [place], [place] [address]Xoxcxehhah (Bld) [Volume fraction]31.3 %Njd65-86MarUlmqco [facility] HospitalComment on above:Performed By: #### CBCA, 26092-1, PINR, 43854-3, 08657- 7, 54297-2, 55696-8, THYR, 27711-7, CMP, 27172-8, 2156-6 #### [facility] ([id number]) [address] [place] [address] #### HA1C #### [facility] ([id number]) [address], [address] [place], [place] [address]Uveefsqbvg (Bld) [Mass/Vol]10.5 g/dLLow13.0-17.0ProCherrington Hospital HospitalComment on above:Performed By: #### CBCA, 03194-1, PINR, 34735-2, 77814-1, 06906-6, 32602-1, THYR, 37287-0, CMP, 23492-0, 2156- #### [facility] ([id number]) [address] [place] [address] #### HA1C #### [facility] ([id number]) [address], [address] [place], [place] [address]FJKNWWZNNEK6+AbnormalNONEProMedica Perrysville HospitalComment on above:Performed By: #### CBCA, 10159-3, PINR, 67074-9, 46491-3, 36845-7, 08043- 4, THYR, 62002-3, CMP, 04420-7, 2156- #### [facility] ([id number]) [address] [place] [address] #### HA1C #### [facility] ([id number]) [address] [place] [address], [address] [place], [place] [address]Ctssoxwplwk (Bld) [#/Vol]1.2 10*3/uLNormal1.0-3.5ProMedica [facility] Va Medical CenterComment on above:Performed By: #### CBCA, 00021-6, PINR, 14443-3, 40484-0, 29522-1, 03449-2, THYR, 13446-5, CMP, 60135-7, 2157-6 #### [facility] ([id number]) [address] [place] [address] #### HA1C #### [facility] ([id number]) [address] [place] [address], [address] [place], [place] [address]Dsvfhoewzdk/100 WBC (Bld)11.9 %NormalSelect Medical Specialty Hospital - [facility] Comment on above:Performed By: #### CBCA, 10872-9, PINR, 77689-2, 47959-7, 85082-9, 00527-8, THYR, 60376-6, CMP, 28181-6, 2157-6 #### [facility] ([id number]) [address] [place] [address] #### HA1C #### [facility] ([id number]) [address] [place] [address], [address] [place], [place] [address]JRL (RBC) [Entitic mass]24.8 ljFxk48-81XeiLqcbyzSelect Medical Specialty Hospital - [facility] Comment on above:Performed By: #### CBCA, 90071-5, PINR, 90369-1, 48448-7, 62879-9, 72675-1, THYR, 60406-3, CMP, 19864-3, 2157-6 #### [facility] ([id number]) [address] [place] [address] #### HA1C #### [facility] ([id number]) [address], [address] [place], [place] [address]ZFFY (RBC) [Mass/Vol]33.6 g/lSVvswzy31-37FywIpdogd [facility] HospitalComment on above:Performed By: #### CBCA, 49974-1, PINR, 15746-1, 58240- 7, 00770-6, 68863-7, THYR, 23195-7, CMP, 51781-3, 2157-6 #### [facility] ([id number]) [address] [place] [address] #### HA1C #### [facility] ([id number]) [address], [address] [place], [place] [address]HPP (RBC) [Entitic vol]74 iYBmd76-816CuqArfcxs [facility] Comment on above:Performed By: #### CBCA, 49355-6, PINR, 49082-0, 78569-7, 73411-7, 40418-6, THYR, 95478-5, CMP, 99375-3, 2157-6 #### [facility] ([id number]) [address] [place] [address] #### HA1C #### [facility] ([id number]) [address], [address] [place], [place] [address]Lqzknumkg (Bld) [#/Vol]1.2 10*3/uLHigh0-0.9ProMercy Health Kings Mills HospitalComment on above:Performed By: #### CBCA, 18235-8, PINR, 92583-0, 64680- 7, 25418-1, 13334-7, THYR, 52266-3, CMP, 40208-1, 2157-6 #### [facility] ([id number]) [address] [place] [address] #### HA1C #### [facility] ([id number]) [address], [address] [place], [place] [address]Xtrpanosg/100 WBC (Bld)12.0 %[facility] Comment on above:Performed By: #### CBCA, 59578-2, PINR, 46716-2, 16623-8, 74093-1, 33458-4, THYR, 02541-9, CMP, 24981-9, 2157-6 #### [facility] ([id number]) [address] [place] [address] #### HA1C #### [facility] ([id number]) [address], [address] [place], [place] [address]Cjaqydtjemz/100 WBC (Bld)74.6 %[facility] Comment on above:Performed By: #### CBCA, 32788-6, PINR, 88382-2, 81958-5, 76784-5, 41927-1, THYR, 56878-9, CMP, 28314-5, 7-6 #### [facility] ([id number]) [address] [place] [address] #### HA1C #### [facility] ([id number]) [address], [address] [place], [place] [address]Bvepkaqe mean volume (Bld) [Entitic vol]10.1 fLNormal7-12 ProMOhioHealth Marion General HospitalComment on above:Performed By: #### CBCA, 43149-3, PINR, 23623-2, 91846-0, 10806-6, 01286-5, THYR, 85070-6, CMP, 90666-3, 7-6 #### [facility] ([id number]) [address] [place] [address] #### HA1C #### [facility] ([id number]) [address], [address] [place], [place] [address]Imnbgpcid (Bld) [#/Vol]252 10*3/bLUmqqym047-836YdrOeqofh Perrysville HospitalComment on above:Performed By: #### CBCA, 40788-1, PINR, 65391-4, 99811- 7, 51359-6, 03484-4, THYR, 52117-8, CMP, 53765-2, 2157-6 #### [facility] ([id number]) [address] [place] [address] #### HA1C #### [facility] ([id number]) [address] [facility], [address] [place], [place] [address]GMSDWFJOUEIRO6+AbnormalNONEProMedica Perrysville HospitalComment on above:Performed By: #### CBCA, 13633-6, PINR, 02901-9, 93787-7, 05366-2, 82970- 4, THYR, 82206-5, CMP, 67349-8, 7-6 #### [facility] ([id number]) [address] [place] [address] #### HA1C #### [facility] ([id number]) [address] [place] [address], [address] [place], [place] [address]RGF COUNT4.24 X10E12/LNormal4.10-5.70Pro[facility] Comment on above:Performed By: #### CBCA, 29915-9, PINR, 62338-8, 70209-3, 62533-9, 83560-8, THYR, 91560-6, CMP, 56157-2, 2157-6 #### [facility] ([id number]) [address] [place] [address] #### HA1C #### [facility] ([id number]) [address] [place] [address], [address] [place], [place] [address]JHWJPC8+AbnormalNONEProMedica Perrysville HospitalComment on above: Performed By: #### CBCA, 39968-7, PINR, 14793-0, 01668-2, 07419-6, 03709-1, THYR, 84386-1, CMP, 32379-3, 2157-6 #### [facility] ([id number]) [facility] [place] [address] #### HA1C #### [facility] ([id number]) [address], [address] [place], [place] [address]WZU (Bld) [#/Vol]10.3 10*3/uLNormal4.0-11.0ProMedica Stiles HospitalComment on above:Performed By: #### CBCA, 26564-5, PINR, 62591-5, 35757- 7, 25937-5, 64568-2, THYR, 83546-9, CMP, 91327-9, 2157-6 #### [facility] ([id number]) [address] [place] [address] #### HA1C #### [facility] ([id number]) [address], [address] [place], [place] [address] [Catalytic activity/Vol]on 12-08-0393PHK4727 U/BOxjo93-478 Pro[facility]ica [facility] HospitalComment on above:Performed By: #### CBCA, 73560-2, PINR, 05877-4, 13789-4, 02473-2, 17717-8, THYR, 23848-8, CMP, 20652-0, 2157-6 #### [facility] ([id number]) [address] [place] [address] #### HA1C #### [facility] ([id number]) [address] [place] [address], [address] [place], [place] [address]IRP[address]84 U/OFulw39-556GwcLzzhmd Stiles HospitalComment on above: Performed By: #### CBCA, 59862-0, PINR, 83916-5, 62639-1, 82458-0, 58245-1, THYR, 85173-6, CMP, 44701-3, 2157-6 #### [facility] ([id number]) [address] [place] [address] #### HA1C #### [facility] ([id number]) [address] [place] [address], [address] [place], [place] [address]TJZDFSCMQNLFM METABOLIC PANELon 54-69-1757Pswdogh [Mass/Vol]3.6 g/dLNormal3.2-5.3ProMedica [facility]sville HospitalComment on above:Performed By: #### CBCA, 82471-4, PINR, 99133-6, 03601-6, 93147-0, 24006-8, THYR, 69016-5, CMP, 13765-5, 2157-6 #### [facility] ([id number]) [address] [place] [address] #### HA1C #### [facility] ([id number]) [address] [place] [address], [address] [place], [place] [address]IYG [Catalytic activity/Vol]118 U/ORbposf68-260NmkPnpmzx [facility] HospitalComment on above:Performed By: #### CBCA, 37384-7, PINR, 98767-2, 60669- 7, 65707-2, 17450-0, THYR, 67531-6, CMP, 72978-5, 2157-6 #### [facility] ([id number]) [address] [place] [address] #### HA1C #### [facility] ([id number]) [address] [place] [address], [address] [place], [place] [address]UXH [Catalytic activity/Vol]26 U/LNormal0-40ProMediCity Hospital HospitalComment on above:Performed By: #### CBCA, 84896-9, PINR, 07271-8, 64226- 7, 85906-8, 62221-1, THYR, 71905-4, CMP, 35565-2, 2157-6 #### [facility] ([id number]) [address] [place] [address] #### HA1C #### [facility] ([id number]) [address] [place] [address], [address] [place], [place] [address]Xxzzr gap [Moles/Vol]9 mmol/LNormal5-15Pro[facility] Comment on above:Performed By: #### CBCA, 35193-1, PINR, 79609-4, 64309-5, 76400-2, 15414-5, THYR, 61346-4, CMP, 64330-0, 2156-12 #### [facility] ([id number]) [address] [place] [address] #### EVERARDO1C #### [facility] ([id number]) [address] [place] [address], [address] [place], [place] [address]YIN [Catalytic activity/Vol]62 U/LHigh0-41ProMer[facility] HospitalComment on above:Performed By: #### CBCA, 47937-6, PINR, 49433-4, 82840- 7, 76732-5, 35359-6, THYR, 79739-6, CMP, 17263-3, 2156-12 #### [facility] ([id number]) [address] [place] [address] #### HA1C #### [facility] ([id number]) [address] [place] [address], [address] [place], [place] [address]Nheffuawl [Mass/Vol]0.6 mg/dLNormal0.3-1.2ProMedica [facility] Va Medical CenterComment on above:Performed By: #### CBCA, 92204-3, PINR, 43557-5, 68824- 7, 78188-9, 29076-8, THYR, 29564-0, CMP, 44028-1, 2156- #### [facility] ([id number]) [address] [place], [place] [address] #### HA1C #### [facility] ([id number]) [address], [address] [place], [place] [address]Lxuephi [Mass/Vol]8.3 mg/dLLow8.5-10.5POhioHealth Nelsonville Health Center Comment on above:Performed By: #### CBCA, 08169-2, PINR, 05059-6, 17071-4, 17166-9, 12525-9, THYR, 37480-7, CMP, 58400-2, 2157-6 #### [facility] ([id number]) [address] [place] [address] #### HA1C #### [facility] ([id number]) [address], [address] [place], [place] [address]Hzieyzei [Moles/Vol]102 mmol/CMxxmjb13-517MtlSsfnlf [facility] Va Medical CenterComment on above:Performed By: #### CBCA, 91568-1, PINR, 85894-0, 58816- 7, 11997-0, 60075-9, THYR, 20534-6, CMP, 03094-5, 2156-6 #### [facility] ([id number]) [address] [place] [address] #### HA1C #### [facility] ([id number]) [address], [address] [place], [place] [address]XH5 [Moles/Vol]22 mmol/KDjcawa65-16UrsNvvlslOhioHealth Nelsonville Health Center Comment on above:Performed By: #### CBCA, 52900-2, PINR, 30971-4, 91326-4, 26324-8, 18386-5, THYR, 65652-8, CMP, 99194-0, 2156-6 #### [facility] ([id number]) [address] [place] [address] #### HA1C #### [facility] ([id number]) [address], [address] [place], [place] [address]Wghhfnhwqi [Mass/Vol]0.83 mg/dLNormal0.60-1.30ProMercy Health Kings Mills HospitalComment on above:Result Comment: METHOD TRACEABLE TO IDMS STANDARD Performed By: #### WILLIAM, 28463-0, PINR, 98029-0, 00108-7, 14524-7, 33522-5, THYR, 01824-2, CMP, 66497-0, 7-6 #### [facility] ([id number]) [address] [place] [address] #### HA1C #### [facility] ([id number]) [address] [place] [address], [address] [address]TDC/1.73 sq M.predicted among non-blacks MDRD (S/P/Bld) [Vol rate/Area]85 mL/min/{1.73_m2}Normal>59ProMercy Health Kings Mills HospitalComment on above: Result Comment: Reported eGFR is based on the CKD-EPI 2020 equation that does not use a race coefficient.Performed By: #### WILLIAM, 48109-5, PINR, 49901-9, 58617-1, 73668-9, 42490-0, THYR, 63271-0, CMP, 54753-4, 2156-6 #### [facility] ([id number]) [address] [place] [address] #### HA1C #### [facility] ([id number]) [address] [place] [address], [address] [place], [place] [address]Hnqddqc [Mass/Vol]270 mg/jCSuil65-22UjlWyteojSelect Medical Specialty Hospital - [facility] Comment on above:Performed By: #### DARRELLA, 50198-2, PINR, 06943-1, 09208-7, 84421-1, 01185-6, THYR, 23122-2, CMP, 55307-9, 2156-6 #### [facility] ([id number]) [address] [place] [address] #### HA1C #### [facility] ([id number]) [address] [facility], [address] [place], [place] [address]Rrmnzowvs [Moles/Vol]4.5 mmol/LNormal3.5-5.0[facility] - AkronComment on above:Performed By: #### CBCA, 32525-7, PINR, 30414-9, 09021- 7, 86751-5, 40146-3, THYR, 25220-8, CMP, 57911-1, 2156-6 #### [facility] ([id number]) [address] [place] [address] #### HA1C #### [facility] ([id number]) [address] [place] [address], [address] [place], [place] [address]Vkeogzx [Mass/Vol]6.4 g/dLNormal6.0-8.0[facility] Comment on above:Performed By: #### CBCA, 85680-6, PINR, 78472-9, 54331-4, 82727-3, 67696-0, THYR, 20242-6, CMP, 51348-2, 2156- #### [facility] ([id number]) [address] [place] [address] #### HA1C #### [facility] ([id number]) [address] [place] [address], [address] [place], [place] [address]Egjxfc [Moles/Vol]133 mmol/FOel508-859GooAxjndyMercy Health Kings Mills Hospital Comment on above:Performed By: #### CBCA, 14938-6, PINR, 46330-0, 50645-6, 73880-4, 87099-8, THYR, 59841-0, CMP, 40139-6, 2156- #### [facility] ([id number]) [address] [place] [address] #### HA1C #### [facility] ([id number]) [address], [address] [place], [place] [address]Skfy nitrogen [Mass/Vol]23 mg/dLNormal5-27ProMercy Health Kings Mills HospitalComment on above:Performed By: #### CBCA, 98828-3, PINR, 63420-2, 99373- 7, 22112-6, 61476-5, THYR, 80139-4, CMP, 26277-6, 2157-6 #### [facility] ([id number]) [address] [place] [address] #### HA1C #### [facility] ([id number]) [address], [address] [place], [place] [address]MD CTA CHESTon [id number] CTA CHESTCT CTA CHEST CLINICAL INFORMATION: Pulmonary [...] as low as reasonably achievable. Finalized by Artruo Alvarado MD on 01/21/2024 2:10 PMNormalProMercy Health Kings Mills HospitalFibrin D-dimer DDU (PPP) [Mass/Vol]on 01-21-2024 JAQJR0624 ng/mL DDU High<255[facility] - [facility]ronComment on above:Result Comment: Results >=255ng/mL DDU: Results may be indicative of the presence of VTE. The use of the Wells score and further diagnostic tests should be considered. Elevated D-Dimer levels can also be associated with DIC, neoplasm, , trauma and liver disease. Elevated levels of rheumatoid factor may lead to an overestimation of the D-Dimer level.Performed By: #### CBCA, 14206-8, PINR, 20533-8, 43747-2, 56105-7, 25814-8, THYR, 74512-7, CMP, 56006-4, 2157-6 #### [facility] ([id number]) [address] [place] [address] #### HA1C #### [facility] ([id number]) [address] [place] [address], [address] [place], [place] [address]Lxdsaez Glucometer (BldC) [Mass/Vol]on 34-87-9021Uenmhva [Mass/Vol]305 mg/lFPani44-38YapDkxdddMercy Health Kings Mills HospitalGlucose [Mass/Vol]296 mg/dL Htnl64-89GvrJerucjMercy Health Kings Mills HospitalGlucose [Mass/Vol]266 mg/zGEpgt54-81ByuDxpjteMercy Health Kings Mills HospitalHGB A1C (GLYCO-HGB)on 92-72-7485Dxxtyaa [Mass/Vol]229 mg/dLNormal [facility] - [facility]ronComment on above:Performed By: #### CBCA, 30416-4, PINR, 99958-4, 76721-1, 92603-3, 04513-9, THYR, 70414-3, CMP, 01551-1, 2157-6 #### [facility] ([id number]) [address] [place] [address] #### HA1C #### [facility] ([id number]) [address] [place] [address], [address] [place], [place] [address]DrR6i (Bld) [Mass fraction]9.6 %High4.4-5.6[facility] Hospital - AkronComment on above:Result Comment: NOTE [place] Guidelines Result HgbA1c Normal : less than 5.7 % Prediabetes : 5.7 % to 6.4 % Diabetes : > 6.4 % Use with caution in patients with abnormal hemoglobin variants as the half-life of red blood cells and in vivo glycation rates are affected.Performed By: #### CBCA, 84142-8, PINR, 72261-6, 24526-9, 69045-8, 38324-1, THYR, 77439-3, CMP, 30002-5, 7-6 #### [facility] ([id number]) [address] [place] [address] #### HA1C #### [facility] ([id number]) [address] [place] [address], [address] [place] [address]Xdeoofi unfractionated Chromogenic method Qn (PPP)on 01-21-2024 ANTI XA UFH0.22 IU/mLLow0.30-0.70[facility] - AkronComment on above: Result Comment: Optimal time for testing is 6 hrs post dosage This test is specific for monitoring patients on UFH, and is not recommended for use with other Anti-Xa medications.Performed By: #### CBCA, 84983-6, PINR, 50989-2, 03570-5, 99602-6, 83356-1, THYR, 08118-3, CMP, 80132-7, 2156- #### [facility] ([id number]) [address] [place] [address] #### HA1C #### [facility] ([id number]) [address] [place] [address], [address] [place], [place] [address]HFBQ XA UFH0.19 IU/mLLow0.30-0.70[facility] Comment on above:Result Comment: Optimal time for testing is 6 hrs post dosage This test is specific for monitoring patients on UFH, and is not recommended for use with other Anti-Xa medications.Performed By: #### CBCA, 11650-1, PINR, 08341-9, 58528-0, 04534-9, 93959-2, THYR, 76027-3, CMP, 89695-6, 2156-6 #### [facility] ([id number]) [address] [place] [address] #### HA1C #### [facility] ([id number]) [address] [place] [address], [address] [place], [place] [address]Hspshwe (P bobo) [Moles/Vol]on 98-65-2898KRHIAQA W/REFLEX1.2 mmol/LNormal0.4-2.0Pro[facility]sville HospitalComment on above:Result Comment: Result did not trigger repeat Lactate, re-order if needed.Performed By: #### WILLIAM, 29535-6, PINR, 95287-7, 08207-0, 75006-5, 43720-2, THYR, 33446-2, CMP, 95538-1, 2156-6 #### [facility] ([id number]) [address] [place] [address] #### HA1C #### [facility] ([id number]) [address] [place] [address], [address] [place], [place] [address]BGXRHMEVAni 34-63-5613Uwqgdxquk [Mass/Vol]1.6 mg/dLLow1.8-2.6 [facility] Medical CenterComment on above:Performed By: #### WILLIAM, 54481-9, PINR, 49616-8, 36789-5, 30048-4, 18757-0, THYR, 78041-4, CMP, 90024-0, 2156-6 #### [facility] ([id number]) [address] [place] [address] #### HA1C #### [facility] ([id number]) [address] [place] [address], [address] [place], [place] [address]Afbxukcotqt peptide B [Mass/Vol]on 88-93-0008Duddmixkgzp peptide B (Bld) [Mass/Vol]1320 pg/mLHigh<100.0Pro[facility] Perrysville HospitalComment on above:Performed By: #### WILLIAM, 23498-1, PINR, 23514-8, 90381-7, 04609-1, 45828- 4, THYR, 63940-0, CMP, 61362-9, 2157-6 #### [facility] ([id number]) [facility] [place] [address] #### HA1C #### [facility] ([id number]) [address], [address] [place], [place] [address]ZCIUXZV AND INRon 75-83-8390OCQ Coag (PPP) [Relative time]1.2 {INR}High0.8-1.1POhioHealth Nelsonville Health CenterComment on above:Performed By: #### CBCA, 51888-0, PINR, 44584-0, 64674-9, 35022-0, 07328-2, THYR, 47642-4, CMP, 72401-4, 2157-6 #### [facility] ([id number]) [address] [place] [address] #### HA1C #### [facility] ([id number]) [address], [address] [place], [place] [address]QK Coag (PPP) [Time]14.4 sHigh9.8-13.2POhioHealth Nelsonville Health Center Comment on above:Performed By: #### CBCA, 09102-6, PINR, 24309-1, 10270-8, 58137-0, 88150-8, THYR, 95518-7, CMP, 96305-8, 2157-6 #### [facility] ([id number]) [address] [place] [address] #### HA1C #### [facility] ([id number]) [address], [address] [place], [place] [address]Tfzkqhphktzag [place] [Mass/Vol]on 62-32-1424IPIBTGNZYEPFA4.06 ng/mL High<0.05ProMercy Health Kings Mills HospitalComment on above:Result Comment: NOTE <0.50 ng/mL - Low risk of severe sepsis and/or septic shock. <2.00 ng/mL - Recommend retesting within 6-24 hours. >2.00 ng/mL - High risk of sepsis and/or septic shock.Performed By: #### CBCA, 67270-1, PINR, 49001-3, 46678-2, 06043-4, 08427-0, THYR, 45118-5, CMP, 42999-3, 2157-6 #### [facility] ([id number]) [address] [place] [address] #### HA1C #### [facility] ([id number]) [address] [place] [address], [address] [place], [place] [address]YLQS PATHOGENS/XSCI-SsC-2ll 13-35-7584Zxaqgoymhtj pathogens DNA and RNA panel ANASTASIA+non-probe (Nph)SPECIMEN [...] 2 Not detected (qualifier value) NOTE The [employer] Respiratory Panel 2.1 (RP2.1) is a multiplexed [...] other pathogens. The agent(s) detected by the [employer] RP2.1 may not be the definite cause [...] evaluating a patient with possible respiratory tract infection.NormalProMercy Health Kings Mills HospitalComment on above:Performed By: #### CBCA, 32752-6, PINR, 16858-4, 22906- 7, 02595-3, 83723-2, THYR, 51186-8, CMP, 31229-5, 2157-6 #### [facility] ([id number]) [address] [place] [address] #### HA1C #### [facility] ([id number]) [address] [place] [address], [address] [place], [place] [address]WWWSTHT PROFILEon 59-28-9395Bgej T4 [Mass/Vol]1.04 ng/dLNormal 0.61-1.60ProMercy Health Kings Mills HospitalComment on above:Performed By: #### CBCA, 17268-9, PINR, 59277-8, 87088-9, 81202-9, 85710-1, THYR, 19050-2, CMP, 44007-0, 2157-6 #### [facility] ([id number]) [address] [place] [address] #### HA1C #### [facility] ([id number]) [address], [address] [place], [place] [address]LNG9.70 uIU/mLNormal0.49-4.67ProMercy Health Kings Mills HospitalComment on above:Performed By: #### WILLIAM, 42528-1, PINR, 74838-6, 64563-6, 99288-0, 56929- 4, THYR, 08134-5, CMP, 45001-8, 2157-6 #### [facility] ([id number]) [address] [place] [address] #### HA1C #### [facility] ([id number]) [address], [address] [place], [place] [address]Ujdjazdi I.cardiac High sensitivity method [Mass/Vol]on 24-89-7323CRZBZHHO I, HIGH JZHAXKNEMXR572 ng/LHigh<21ProMer[facility] Hospital Comment on above:Result Comment: Elevations of hs-Troponin may be due to causes other than myocardial ischemia. Recommend serial hs-Troponin testing be performed. For the initial evaluation and management of chest pain patients, refer to the algorithms linked below. Emergency Patient: [email or web address] Inpatient: [email or web address] By: #### CBCA, 85721-8, PINR, 71831-5, 55947-9, 89598-0, 62721-7, THYR, 81571- 1, CMP, 67228-8, 2157-6 #### [facility] ([id number]) [address] [place] [address] #### HA1C #### [facility] ([id number]) [address] [facility], [address] [place], [place] [address] HOUR TROP I, HIGH RVALVKEXLPL117 ng/LHigh<21ProMercy Health Kings Mills HospitalComment on above:Result Comment: Elevations of hs-Troponin may be due to causes other than myocardial ischemia. Recommend serial hs-Troponin testing be performed. For the initial evaluation and management of chest pain patients, refer to the algorithms linked below. Emergency Patient: [email or web address] Inpatient: [email or web address] By: #### CBCA, 28572-5, PINR, 67459-4, 20596-6, 14076-8, 55599-7, THYR, 57833- 1, CMP, 87191-4, 2157-6 #### [facility] ([id number]) [address] [place] [address] #### HA1C #### [facility] ([id number]) [address], [address] [place] [address]KU CHEST 1 VWon 14-41-8788RL CHEST 1 VWXR CHEST 1 VW History: Congestion EXAM: Chest AP portable upright COMPARISON: None FINDINGS: Cardiac silhouette within normal limits. Mild interstitial prominence. No pneumothorax. No infiltrate or large pleural effusion. IMPRESSION: Mild interstitial edema Finalized by Mima Eaton MD on 01/21/2024 1:38 PMNormalProMercy Health Kings Mills HospitalaPTT Coag (PPP) [Time]on 89-59-6990qIOY Coag (Bld) [Time]54 lOuzw26-72 [facility] Medical CenterComment on above:Performed By: #### CBCA, 21914-7, PINR, 75722-8, 07259-6, 61364-7, 59222-6, THYR, 77720-0, CMP, 63785-4, 2157-6 #### [facility] ([id number]) [address] [place] [address] #### HA1C #### [facility] ([id number]) [address] [place] [address], [address] [place], [place] [address]AJ Cervical spine WO contraston 76-91[place] [address] Magnetic Resonance Report Signed Patient: MANOLO ROCHE MR#: [id number] : 1935 Acct:[id number] Age/Sex: 88 / M ADM Date: 12/27/23 Loc: MRI Attending Dr: Non-Staff Physician Mikel Ordering Physician: Jones MortonStaff Mikel Date of Service: 12/27/23 Procedure(s): MR cervical spine wo con Accession Number(s): [id number] cc: Physician,Non-Staff Mikel; MARIE TEJEDA [place] [address] Patient Name: MANOLO ROCHE MRN: [id number] date: 1935 Sex: M Assigned Patient Location: MRI Current Patient Location: Accession/Order Number: [id number] Exam Date: 12/27/2023 09:55 Report Date: 12/28/2023 [...] Guzman M.D. Signed By: 12/28/2336 DD/ TD/TT: Drug And Alcohol Counselor:TBHRadiology, Radiologist, MD - 12/28/2023 [place] [address] Magnetic Resonance Report Signed Patient: MANOLO ROCHE MR#: [id number] : 1935 Acct:[id number] Age/Sex: 88 / M ADM Date: 12/27/23 Loc: MRI Attending Dr: Non-Staff Physician Morin Ordering Physician: Maci Morton M.D. Date of Service: 12/27/23 Procedure(s): MR cervical spine wo con Accession Number(s): [id number] cc: Physician,Non-Staff MBrandon; MARIE TEJEDA [place] [address] Patient Name: MANOLO ROCHE MRN: [id number] date: 1935 Sex: M Assigned Patient Location: MRI Current Patient Location: Accession/Order Number: [id number] Exam Date: 12/27/2023 09:55 Report Date: 12/28/2023 [...] M.D. Signed By: 12/28/23935 DD/ 3 TD/TT: Drug And Alcohol Counselor: NETO [facility] HealthRadiology Study observation (narrative)[facility] Cervical spine WO contrastOrdered By: Radiologist Radiology on 25-66-8734LXBSHarry S. Truman Memorial Veterans' Hospital Work Phone: Glucose Glucometer (BldC) [Mass/Vol]Ordered By: Alberto Shearer on 26-83-1727Zmwpjbn [Mass/Vol]83 mg/dLCleveland Clinic Hillcrest Hospital Comment on above:Random Glucose Reference Range is dependent on time and content of last meal. Glucose of more than 200 mg/dL in a nonstressed, ambulatory subject supports the diagnosis of Diabetes Mellitus.No Panel InformationOrdered By: Alberto Shearer on 22-29-7912Wndicwr Glucose CommentGlu2: cleaned [facility] Medical CenterBedside Glucose #2 CommentCleaned [facility]lyria Medical CenterGlucose Glucometer (BldC) [Mass/Vol]Ordered By: Yomi Meeks on 87-16-8762Qsyscpq [Mass/Vol]71 mg/dLCleveland Clinic Hillcrest HospitalComment on above:Random Glucose Reference Range is dependent on time and content of last meal. Glucose of more than 200 mg/dL in a nonstressed, ambulatory subject supports the diagnosis of Diabetes Mellitus.Glucose Glucometer (BldC) [Mass/Vol]Ordered By: Vidya Robert on 59-89-1965Bzikrsv [Mass/Vol]268 mg/dLCleveland Clinic Hillcrest HospitalComment on above:Random Glucose Reference Range is dependent on time and content of last meal. Glucose of more than 200 mg/dL in a nonstressed, ambulatory subject supports the diagnosis of Diabetes Mellitus.No Panel InformationOrdered By: Vidya Robert on 49-21-7210Qajaaio Glucose CommentGlu2: cleaned [facility] Medical CenterErythrocyte distribution width Auto (RBC) [Ratio]Ordered By: [employer] on 57-98-9425Cgezuuapbxw distribution width (RBC) [Ratio]16.7 %12.0-14.8 [facility] HospitalHematocrit Auto (Bld) [Volume fraction]Ordered By: [employer] on 37-21-8623Amzotinobt (Bld) [Volume fraction]22.7 % 38.8-50.0[facility]st HospitalHemoglobin [Mass/volume] in Blood Ordered By: [employer] on 10-94-4434Yenrnljgqh (Bld) [Mass/Vol]7.8 g/dL 13.0-17.0[facility] HospitalLeukocytes [#/volume] corrected for nucleated erythrocytes in Blood by Automated counOrdered By: [employer] on 08-43-7265SUL corrected for nucl RBC Auto (Bld) [#/Vol]9.4 10*3/uL4.1-10.5 [facility] HospitalMCH Auto (RBC) [Entitic mass]Ordered By: [employer] on 33-78-3460QEK (RBC) [Entitic mass]28.7 pg27.5-35.2FUC [facility] HospitalMCHC Auto (RBC) [Mass/Vol]Ordered By: [employer] Gaming on 09-05-2023 MCHC (RBC) [Mass/Vol]34.1 g/dL32.5-35.6F[facility] HospitalMCV Auto (RBC) [Entitic vol]Ordered By: [employer] on 60-06-8126MAV (RBC) [Entitic vol]84.1 fL83.5-101C[facility] HospitalPlatelet mean volume Auto (Bld) [Entitic vol]Ordered By: [employer] on 43-60-7984Wpgjxpfe mean volume (Bld) [Entitic vol]9.8 fL6.6-10.1F[facility] HospitalPlatelets Auto (Bld) [#/Vol]Ordered By: [employer] on 73-59-8375Tpazctbom (Bld) [#/Vol]236 10*3/dO518-551BocojpwuuCleveland Clinic Hillcrest HospitalRBC Auto (Bld) [#/Vol]Ordered By: [employer] on 74-38-2382AUG (Bld) [#/Vol]2.70 10*6/uL3.90-5.60[facility] HospitalBasophils Auto (Bld) [#/Vol]Ordered By: Jeevan Pinzon on 25-57-3793Zssljnqeq (Bld) [#/Vol]0.0 10*3/uL0.0-0.2F[facility] HospitalBasophils/100 WBC Auto (Bld)Ordered By: Jeevan Pinzon on 09-04-2023 Basophils/100 WBC (Bld)0.4 %.[facility] HospitalEosinophils Auto (Bld) [#/Vol]Ordered By: Jeevan Pinzon on 78-51-6020Qwuivqogrpj (Bld) [#/Vol]0.1 10*3/uL0.0-0.45[facility] HospitalEosinophils/100 WBC Auto (Bld) Ordered By: Jeevan Pinzon on 09-22-8372Ptrjmfkberh/100 WBC (Bld)0.8 %.[facility] HospitalLymphocytes Auto (Bld) [#/Vol]Ordered By: Jeevan Pinzon on 56-98-4516Fmkdtabxfsg (Bld) [#/Vol]1.3 10*3/uL1.00-4.8[facility] HospitalLymphocytes/100 WBC Auto (Bld)Ordered By: Jeeavn Pinzon on 40-05-3293Ziotzwghgkj/100 WBC (Bld)11.7 %.[facility] Monocytes Auto (Bld) [#/Vol]Ordered By: Jeevan Pinzon on 47-94-0295Ouoicrooa (Bld) [#/Vol]1.9 10*3/uL0.0-0.8[facility] HospitalMonocytes/100 WBC Auto (Bld)Ordered By: Jeevan Pinzon on 58-80-0634Yxspopjbu/100 WBC (Bld)17.9 %.[facility] HospitalComment on above:Absolute monocytosis is commonly reactive in nature. However, if unexplained, recommend follow-up CBC in 3 months to evaluate for persistence.Neutrophils Auto (Bld) [#/Vol]Ordered By: Jeevan Pinzon on 43-27-6976Caxouwtyapu (Bld) [#/Vol]7.4 10*3/uL1.8-7.7F[facility] HospitalNeutrophils/100 WBC Auto (Bld)Ordered By: Jeevan Pinzon on 39-93-0235Wgpnxqzlyuj/100 WBC (Bld)69.2 %.[facility] Nucleated erythrocytes [Presence] in Blood by Automated countOrdered By: Jeevan Pinzon on 78-08-7103Ylschojrq RBC Auto Ql (Bld)0.2 /100{WBC}0-0.5F[facility] HospitalWBC Auto (Bld) [#/Vol]Ordered By: Jeevan Pinzon on 57-36-6059JNX (Bld) [#/Vol]10.7 10*3/uL4.1-10.5[facility] No Panel InformationOrdered By: [employer] on 73-57-2040Oznmebw Glucose #2 CommentWill repeat testCleveland Clinic Hillcrest HospitalAcanthocytes [Presence] in Blood by Light microscopyOrdered By: [employer] on 02-65-3129Sfsrtbvokfdj LM Ql (Bld)[facility]red HealthcareAnisocytosis LM Ql (Bld) Ordered By: [employer] on 49-94-1207Cjvegbvfqwlc Ql (Bld)UC Medical CenterBand form neutrophils/100 WBC Manual cnt (Bld)Ordered By: [employer] on 29-14-9100Fiqx form neutrophils/100 WBC (Bld)4 %0-5F[facility] HospitalBurr cells [Presence] in Blood by Light microscopyOrdered By: [employer] on 25-81-6021Gulq cells LM Ql (Bld)[facility]red HealthcareCalcium [Mass/volume] in Serum or PlasmaOrdered By: [employer] on 32-81-6667Fqzqmfa [Mass/Vol]7.7 mg/dL8.6-10.3F[facility] HospitalCarbon dioxide, total [Moles/volume] in Serum or PlasmaOrdered By: [employer] on 44-61-2367SP2 [Moles/Vol]27.3 mmol/L21.0-31.0[facility] HospitalChloride [Moles/volume] in Serum or PlasmaOrdered By: [employer] on 57-50-5507Ghgqacen [Moles/Vol]106 mmol/K29-769GewzbfpjbCleveland Clinic Hillcrest HospitalCreatinine [Mass/volume] in Serum or PlasmaOrdered By: [employer] on 41-72-0667Apsgrldkvr [Mass/Vol]0.81 mg/dL0.70-1.30[facility] HospitalGlucose [Mass/volume] in Serum or PlasmaOrdered By: [employer] on 98-03-9614Izdkmxw [Mass/Vol]79 mg/rL18-081HxgpetpvwCleveland Clinic Hillcrest Hospital Comment on above:ADA recommended reference rangeRandom Glucose Reference Range is dependent on time and content of last meal. Glucose of more than 200 mg/dL in a nonstressed, ambulatory subject supports the diagnosisof Diabetes Mellitus. Hypochromia LM Ql (Bld)Ordered By: [employer] on 59-65-3599Qrxizcbaqqq Ql (Bld)[facility] Medical CenterLymphocytes/100 WBC Manual cnt (Bld)Ordered By: [employer] on 04-57-3114Mmetutsfhwm/100 WBC (Bld)9 %18-42 [facility] HospitalMicrocytes LM Ql (Bld)Ordered By: [employer] on 83-97-4832Zbxpsmqvqb Ql (Bld)[facility] Medical CenterMonocytes/100 WBC Manual cnt (Bld)Ordered By: [employer] on 09-01-2023 Monocytes/100 WBC (Bld)7 %2-11[facility] HospitalNo Panel InformationOrdered By: [employer] on 73-70-8806Wjtzxqmis GFR (CKD-EPI)> 60.0 mL/MinCleveland Clinic Hillcrest HospitalPharmacy Creatinine Clearance (Chem59.91 [facility] HospitalOvalocyte detectionOrdered By: [employer] on 34-25-2051Gcbfoxumne LM Ql (Bld)[facility] Platelet adequacy [Presence] in Blood by Light microscopyOrdered By: [employer] on 34-10-6189Xzmybokwa LM Ql (Bld)DecreasedNormalCleveland Clinic Hillcrest HospitalPlatelet morphology finding [Identifier] in BloodOrdered By: [employer] on 32-91-5272Revnresf morphology finding Nom (Bld)N/[facility] CampusPlatelets Large [Presence] in Blood by Light microscopy Ordered By: [employer] on 15-29-6202Sintwgcxh Large LM Ql (Bld)[facility] TownshipPoikilocytosis [Presence] in Blood by Light microscopyOrdered By: [employer] on 23-29-9320Bcneutqxmvillx LM Ql (Bld) [facility] Medical CenterPolychromasia [Presence] in Blood by Light microscopyOrdered By: [employer] on 29-34-8315Sfvkxhbjtbwqq LM Ql (Bld)[facility]red HealthcarePotassium [Moles/volume] in Serum or PlasmaOrdered By: [employer] on 15-35-7792Ajyidoaxr [Moles/Vol]3.9 mmol/L 3.5-5.1F[facility] HospitalRBC morphologyOrdered By: [employer] on 34-50-8052YEP morphology finding Nom (Bld)N/[facility] Hospitalchistocytes [Presence] in Blood by Light microscopyOrdered By: [employer] on 24-48-1879Koccrwtqfgpe LM Ql (Bld)[facility] Hospitalegmented neutrophils/100 WBC Manual cnt (Bld)Ordered By: [employer] on 92-51-3145Agraibsbt neutrophils/100 WBC (Bld)81 %50-70Ohio [facility] Health Systemerum or plasma anion gap determinationOrdered By: [employer] on 71-91-8250Lnkyn gap [Moles/Vol]10.6 mmol/L6.0-15.0[facility] Systemodium [Moles/volume] in Serum or PlasmaOrdered By: [employer] on 40-98-7388Mnrgay [Moles/Vol]140 mmol/O514-819CsgclgwptC[facility] Clinic Hill[facility] Hospital Target cellsOrdered By: [employer] Gaming on 04-20-1471Sjvgpu cells LM Ql (Bld) [facility]red HealthcareTroponin I.cardiac [Mass/volume] in Serum or Plasma by Detection limit <= 0.01 ng/Ordered By: [employer] on 73-71-7665Nwxgcvmd I.cardiac DL <= 0.01 ng/mL [Mass/Vol]779.8 pg/mL0.0-20.0 [facility] HospitalComment on above:Critical Result : Called to and read back by: EDNA MORALES at: 09/01/2023 06:23:23 by:RGUrea nitrogen [Mass/volume] in Serum or PlasmaOrdered By: [employer] on 85-64-4590Vuhw nitrogen [Mass/Vol]37 mg/dL7-25[facility] HospitalActivated partial thromboplastin time (aPTT) in platelet poor plasma by coagulation a Ordered By: Federico Davis on 27-18-7454uJFK Coag (PPP) [Time]30.2 s25.1-36.5 [facility] HospitalComment on above:A hematocrit value greater than 55% may lead to inaccurate results in coagulation testing. Patientshaving hematocrit values >55% require a special collection tube for coagulation studies. Please contact the laboratory at [phone] for redraw instructions. Anisocytosis LM Ql (Bld)Ordered By: Federico Davis on 62-12-1280Nzivstycsjaz Ql (Bld) Kindred HealthcareBasophils Auto (Bld) [#/Vol]Ordered By: Federico Davis on 36-31-6814Sukbpqate (Bld) [#/Vol]0.0 10*3/uL0.0-0.2[facility] HospitalBasophils/100 WBC Auto (Bld)Ordered By: Federico Davis on 56-54-9973Ryyamrjkz/100 WBC (Bld)0.5 %.[facility] HospitalCarbon dioxide, total [Moles/volume] in Serum or PlasmaOrdered By: Federico Davis on 47-45-8342IU5 [Moles/Vol]26.8 mmol/L21.0-31.0[facility] Chloride [Moles/volume] in Serum or PlasmaOrdered By: Federico Davis on 07-16-2023 Chloride [Moles/Vol]103 mmol/X87-469LkltpyripCleveland Clinic Hillcrest HospitalCreatinine [Mass/volume] in Serum or PlasmaOrdered By: Federico Davis on 08-04-1454Swneoubdbm [Mass/Vol]0.71 mg/dL0.70-1.30[facility] HospitalEosinophils Auto (Bld) [#/Vol]Ordered By: Federico Davis on 46-28-9651Bfomiztzfwf (Bld) [#/Vol]0.0 10*3/uL0.0-0.45[facility] HospitalEosinophils/100 WBC Auto (Bld) Ordered By: Federico Davis on 14-62-6678Ckedlirgrjp/100 WBC (Bld)0.3 %.[facility] HospitalErythrocyte distribution width Auto (RBC) [Ratio]Ordered By: Federico Davis on 70-69-9299Opktyohkarv distribution width (RBC) [Ratio]16.5 % 12.0-14.8[facility] HospitalGlucose Glucometer (BldC) [Mass/Vol] Ordered By: Federico Davis on 53-29-4755Flrwybx [Mass/Vol]398 mg/dLCleveland Clinic Hillcrest HospitalComment on above:Random Glucose Reference Range is dependent on time and content of last meal. Glucose of more than 200 mg/dL in a nonstressed, ambulatory subject supports the diagnosis of Diabetes Mellitus.Hematocrit Auto (Bld) [Volume fraction]Ordered By: Federico Davis on 64-32-6450Sofllkjgfp (Bld) [Volume fraction]33.5 %38.8-50.0[facility] HospitalHemoglobin [Mass/volume] in BloodOrdered By: Federico Davis on 54-99-9004Pmwfqfmxlg (Bld) [Mass/Vol]11.0 g/dL13.0-17.0[facility] HospitalHypochromia LM Ql (Bld)Ordered By: Federico Davis on 19-23-2123Ovqvoezjdur Ql (Bld)MarkedCleveland Clinic Hillcrest HospitalINR in Platelet poor plasma by Coagulation assayOrdered By: Federico Davis on 07-38-3898EGZ Coag (PPP) [Relative time]1.1 {INR}[facility] HospitalComment on above:INR Therapeutic Range A) Pre- and [...] by Automated counOrdered By: Federico Davis on 98-94-8522TSG corrected for nucl RBC Auto (Bld) [#/Vol]8.4 10*3/uL4.1-10.5 [facility] HospitalLymphocytes Auto (Bld) [#/Vol]Ordered By: Federico Davis on 07-72-3499Lyiveqxxaga (Bld) [#/Vol]0.7 10*3/uL1.00-4.8[facility] HospitalLymphocytes/100 WBC Auto (Bld)Ordered By: Federico Davis on 12-04-9175Scbdairpftu/100 WBC (Bld)8.4 %.[facility] Auto (RBC) [Entitic mass]Ordered By: Federico Davis on 08-16-0945VXC (RBC) [Entitic mass]26.4 pg27.5-35.2[facility] HospitalMCHC Auto (RBC) [Mass/Vol] Ordered By: Federico Davis on 36-21-3029VMUK (RBC) [Mass/Vol]32.8 g/dL32.5-35.6 [facility] HospitalMCV Auto (RBC) [Entitic vol]Ordered By: Federico Davis on 56-60-2402VTJ (RBC) [Entitic vol]80.4 fL83.5-101[facility] HospitalMacrocytes LM Ql (Bld)Ordered By: Federico Davis on 07-16-2023 Macrocytes Ql (Bld)SlightCleveland Clinic Hillcrest HospitalMonocytes Auto (Bld) [#/Vol]Ordered By: Federico Davis on 11-67-7788Qujiotzqk (Bld) [#/Vol]1.3 10*3/uL 0.0-0.8[facility] HospitalMonocytes/100 WBC Auto (Bld)Ordered By: Federico Davis on 41-16-5199Wpfmuiicb/100 WBC (Bld)15.1 %.[facility] HospitalNeutrophils Auto (Bld) [#/Vol]Ordered By: Federico Davis on 07-16-2023 Neutrophils (Bld) [#/Vol]6.3 10*3/uL1.8-7.7[facility] Neutrophils/100 WBC Auto (Bld)Ordered By: Federico Davis on 69-05-9323Vcdmpknpquc/100 WBC (Bld)75.7 %.[facility] HospitalNo Panel InformationOrdered By: Federico Davis on 01-60-9976Hdrqlzz Glucose CommentGlu2: cleaned meterCleveland Clinic Hillcrest HospitalEstimated GFR (CKD-EPI)> 60.0 mL/MinCleveland Clinic Hillcrest HospitalPharmacy Creatinine Clearance (ChemN/AFUC [facility] HospitalNucleated erythrocytes [Presence] in Blood by Automated countOrdered By: Federico Davis on 00-15-7759Nbypxccba RBC Auto Ql (Bld)0.1 /100{WBC}0-0.5[facility] HospitalPlatelet adequacy [Presence] in Blood by Light microscopy Ordered By: Federico Davis on 98-94-3910Wwraboxdy LM Ql (Bld)NormalNormalCleveland Clinic Hillcrest HospitalPlatelet mean volume Auto (Bld) [Entitic vol]Ordered By: Federico Davis on 29-73-0253Gdyegzsh mean volume (Bld) [Entitic vol]10.1 fL6.6-10.1 [facility] HospitalPlatelet morphology finding [Identifier] in BloodOrdered By: Federico Davis on 57-56-6569Uoxotwdt morphology finding Nom (Bld)N/A [facility] HospitalPlatelets Auto (Bld) [#/Vol]Ordered By: Federico Davis on 08-70-4371Dswmokhms (Bld) [#/Vol]243 10*3/oB352-588NnxyocwecCleveland Clinic Hillcrest HospitalPlatelets Large [Presence] in Blood by Light microscopyOrdered By: Federico Davis on 24-35-7740Nsifyanne Large LM Ql (Bld)SlightCleveland Clinic Hillcrest HospitalPoikilocytosis [Presence] in Blood by Light microscopyOrdered By: Federico Davis on 79-20-1045Vhhhuiomdlqnfv LM Ql (Bld)[facility] CenterPolychromasia [Presence] in Blood by Light microscopyOrdered By: Federico Davis on 29-58-6882Bhipolaskoosr LM Ql (Bld)[facility] CenterPotassium [Moles/volume] in Serum or PlasmaOrdered By: Federico Davis on 04-30-2031Ouumdqupn [Moles/Vol]4.2 mmol/L3.5-5.1[facility] HospitalProthrombin time (PT)Ordered By: Federico Davis on 04-27-4036XM Coag (PPP) [Time]12.3 s9.0-12.9[facility] HospitalComment on above:A hematocrit value greater than 55% may lead to inaccurate results in coagulation testing. Patientshaving hematocrit values >55% require a special collection tube for coagulation studies. Please contact the laboratory at [phone] for redraw instructions.RBC Auto (Bld) [#/Vol]Ordered By: Federico Davis on 69-99-2092FRI (Bld) [#/Vol]4.17 10*6/uL3.90-5.60[facility] HospitalRBC morphologyOrdered By: Federico Davis on 58-82-0645NOR morphology finding Nom (Bld)N/A [facility] Systemchistocytes [Presence] in Blood by Light microscopyOrdered By: Federico Davis on 61-03-9627Wqfeaqxgwyks LM Ql (Bld)Slight [facility] Systemerum or plasma anion gap determinationOrdered By: Federico Davis on 02-13-4245Puzon gap [Moles/Vol]12.4 mmol/L6.0-15.0[facility] Systemodium [Moles/volume] in Serum or PlasmaOrdered By: Federico Davis on 02-25-5902Fmguxb [Moles/Vol]138 mmol/O544-913SfngjbmmrCleveland Clinic Hillcrest HospitalTarget cellsOrdered By: Federico Davis on 00-71-5530Ljmflk cells LM Ql (Bld)ModerateCleveland Clinic Hillcrest HospitalUrea nitrogen [Mass/volume] in Serum or PlasmaOrdered By: Federico Davis on 61-95-2194Aaat nitrogen [Mass/Vol]16 mg/dL7-25[facility] HospitalWBC Auto (Bld) [#/Vol]Ordered By: Federico Davis on 57-82-5992TOC (Bld) [#/Vol]8.4 10*3/uL4.1-10.5[facility] HospitalProgress Noteson 47-60-2580Vnukpsdwdocmi Authentication Interface Message TextEMERGENCY TRIAGE, TREAT AND TRANSPORT (ET3) DOCUMENTATION OF TELEHEALTH VISIT Date / Time: 06/02/2023929 Name: Giovani Roche : 1935 SSN: (Not on file) EMS Agency: [facility] [x] Verbal consent obtained [] [...] Reported: Same ET3 Encounter Completed by: David FrederickACMC Healthcare System Glen[facility] SystemEC 12 [place] 56-57-2462Rqqzkj sinus rhythm, anterolateral ST T wave abnormality, abnormal ECGCPACSMcKitrick Hospital Work Phone: Glucose Glucometer (BldC) [Mass/Vol]Ordered By: Fredi Medrano on 76-74-8044Ltmamcq [Mass/Vol]98 mg/dLCleveland Clinic Hillcrest HospitalComment on above:Random Glucose Reference Range is dependent on time and content of last meal. Glucose of more than 200 mg/dL in a nonstressed, ambulatory subject supports the diagnosis of Diabetes Mellitus.No Panel InformationOrdered By: Fredi Medrano on 90-81-7265Tixeohz Glucose Comment Glu2: cleaned meterCleveland Clinic Hillcrest HospitalAlanine aminotransferase [Enzymatic activity/volume] in Serum or PlasmaOrdered By: Fredi Medrano on 20-49-2206LDP [Catalytic activity/Vol]14 U/L7-52[facility] HospitalAlbumin [Mass/volume] in Serum or Plasma by Bromocresol green (BCG) dye binding methoOrdered By: Fredi Medrano on 86-97-2782Jvkhqcs BCG dye [Mass/Vol]2.9 g/dL3.5-5.7[facility] HospitalAlkaline phosphatase [Enzymatic activity/volume] in Serum or PlasmaOrdered By: Fredi Medrano on 47-42-0391JAP [Catalytic activity/Vol]87 U/B87-335QfawbkxoxCleveland Clinic Hillcrest HospitalAspartate aminotransferase [Enzymatic activity/volume] in Serum or Plasma Ordered By: Fredi Medrano on 93-07-4846MJZ [Catalytic activity/Vol]20 U/L 13-39[facility] HospitalBasophils Auto (Bld) [#/Vol]Ordered By: Fredi Medrano on 28-39-3436Clyrgswci (Bld) [#/Vol]0.0 10*3/uL0.0-0.2 [facility] HospitalBasophils/100 WBC Auto (Bld)Ordered By: Fredi Medrano on 75-98-2839Ncoxoskkg/100 WBC (Bld)0.7 %.[facility] HospitalBilirubin.total [Mass/volume] in Serum or PlasmaOrdered By: Fredi Medrano on 88-15-6519Pjvrfzpkg [Mass/Vol]0.5 mg/dL0.3-1.0 [facility] HospitalCalcium [Mass/volume] in Serum or PlasmaOrdered By: Fredi Medrano on 99-76-2627Iojbomk [Mass/Vol]8.0 mg/dL8.6-10.3 [facility] HospitalCarbon dioxide, total [Moles/volume] in Serum or PlasmaOrdered By: Fredi Medrano on 11-23-0984SL7 [Moles/Vol]28.0 mmol/L21.0-31.0[facility] HospitalChloride [Moles/volume] in Serum or PlasmaOrdered By: Fredi Medrano on 73-55-9979Pgkmzgqx [Moles/Vol]102 mmol/X68-751KfzybfjqbCleveland Clinic Hillcrest HospitalCreatinine [Mass/volume] in Serum or PlasmaOrdered By: Fredi Medrano on 18-92-5028Fiperbbvsr [Mass/Vol]0.61 mg/dL0.70-1.30[facility] HospitalEosinophils Auto (Bld) [#/Vol] Ordered By: Fredi Medrano on 60-48-7307Ggjicdjdbfz (Bld) [#/Vol]0.1 10*3/uL0.0-0.45[facility] HospitalEosinophils/100 WBC Auto (Bld) Ordered By: Fredi Medrano on 70-27-3812Xyaeamkuudl/100 WBC (Bld)1.5 %. [facility] HospitalErythrocyte distribution width Auto (RBC) [Ratio]Ordered By: Fredi Medrano on 23-98-3375Zxkhcudvpoj distribution width (RBC) [Ratio]16.8 %12.0-14.8[facility] HospitalGlobulin Calc (S) [Mass/Vol]Ordered By: Fredi Medrano on 39-02-0360Lgbwjjcp (S) [Mass/Vol]2.5 g/dLCleveland Clinic Hillcrest HospitalGlucose [Mass/volume] in Serum or PlasmaOrdered By: Fredi Medrano on 22-49-0679Jxlnthz [Mass/Vol] 120 mg/lG14-560YmtvvzmgrCleveland Clinic Hillcrest HospitalComment on above:ADA recommended reference rangeRandom Glucose Reference Range is dependent on time and content of last meal. Glucose of more than 200 mg/dL in a nonstressed, ambulatory subject supports the diagnosisof Diabetes Mellitus.Hematocrit Auto (Bld) [Volume fraction]Ordered By: Fredi Medrano on 68-65-3471Vuxjyohpqu (Bld) [Volume fraction]29.3 %38.8-50.0[facility] HospitalHemoglobin [Mass/volume] in BloodOrdered By: Fredi Medrano on 04-10-5837Njhfxantmw (Bld) [Mass/Vol]9.7 g/dL13.0-17.0[facility] HospitalLeukocytes [#/volume] corrected for nucleated erythrocytes in Blood by Automated coun Ordered By: Fredi Medrano on 17-64-9808QRI corrected for nucl RBC Auto (Bld) [#/Vol]7.2 10*3/uL4.1-10.5[facility] CenterLymphocytes Auto (Bld) [#/Vol]Ordered By: Fredi Medrano on 15-95-0729Rjpulvgeqag (Bld) [#/Vol]1.6 10*3/uL1.00-4.8[facility] HospitalLymphocytes/100 WBC Auto (Bld)Ordered By: Fredi Medrano on 29-11-0390Ubgikjmtzkw/100 WBC (Bld)23.0 %.[facility] HospitalH Auto (RBC) [Entitic mass] Ordered By: Fredi Medrano on 31-68-9891WWF (RBC) [Entitic mass]27.9 pg 27.5-35.2[facility] HospitalMCHC Auto (RBC) [Mass/Vol]Ordered By: Fredi Medrano on 46-82-3747VLCM (RBC) [Mass/Vol]33.0 g/dL32.5-35.6 [facility] HospitalMCV Auto (RBC) [Entitic vol]Ordered By: Fredi Medrano on 95-33-5714ZLX (RBC) [Entitic vol]84.6 fL83.5-101 [facility] HospitalMonocytes Auto (Bld) [#/Vol]Ordered By: Fredi Medrano on 85-46-8196Qfohlecke (Bld) [#/Vol]0.7 10*3/uL0.0-0.8 [facility] HospitalMonocytes/100 WBC Auto (Bld)Ordered By: Fredi Medrano on 72-23-7581Cecfjrhad/100 WBC (Bld)9.9 %.[facility] HospitalNeutrophils Auto (Bld) [#/Vol]Ordered By: Frdei Medrano on 46-49-1158Cnufusvtjmy (Bld) [#/Vol]4.6 10*3/uL1.8-7.7[facility] HospitalNeutrophils/100 WBC Auto (Bld)Ordered By: Fredi Medrano on 16-30-6936Fgosnxierpv/100 WBC (Bld)64.9 %.[facility] HospitalNo Panel InformationOrdered By: Fredi Medrano on 05-04-2023 Estimated GFR (CKD-EPI)> 60.0 mL/MinCleveland Clinic Hillcrest HospitalPharmacy Creatinine Clearance (Chem62.25[facility] HospitalNucleated erythrocytes [Presence] in Blood by Automated countOrdered By: Fredi Medrano on 53-91-2766Lusyeiwky RBC Auto Ql (Bld)0.2 /100{WBC}0-0.5[facility] HospitalPlatelet mean volume Auto (Bld) [Entitic vol]Ordered By: Fredi Medrano on 12-50-5107Ujderylc mean volume (Bld) [Entitic vol]8.9 fL 6.6-10.1[facility] HospitalPlatelets Auto (Bld) [#/Vol]Ordered By: Fredi Medrano on 40-43-5675Sfprazbsw (Bld) [#/Vol]218 10*3/yI428-357 [facility] HospitalPotassium [Moles/volume] in Serum or Plasma Ordered By: Fredi Medrano on 03-89-3140Stswesnss [Moles/Vol]4.6 mmol/L 3.5-5.1[facility] HospitalPrealbumin [Mass/volume] in Serum or PlasmaOrdered By: Fredi Medrano on 44-84-3159Qsqpfcoijf [Mass/Vol]10.2 mg/dL17.0-34.0[facility] HospitalProtein [Mass/volume] in Serum or PlasmaOrdered By: Fredi Medrano on 97-37-9456Ronwjkw [Mass/Vol]5.4 g/dL 6.4-8.9[facility] HospitalRBC Auto (Bld) [#/Vol]Ordered By: Fredi Medrano on 31-86-5361LRK (Bld) [#/Vol]3.46 10*6/uL3.90-5.60 [facility] Systemerum or plasma albumin/globulin mass ratio Ordered By: Fredi Merdano on 05-35-8546Cbbgnoy/Globulin [Mass ratio]1.2 {ratio}[facility] Systemerum or plasma anion gap determination Ordered By: Fredi Medrano on 59-38-5777Ygead gap [Moles/Vol]8.6 mmol/L 6.0-15.0[facility] Systemodium [Moles/volume] in Serum or PlasmaOrdered By: Fredi Medrano on 00-64-2210Myaoqx [Moles/Vol]134 mmol/L 136-145[facility] HospitalUrea nitrogen [Mass/volume] in Serum or PlasmaOrdered By: Fredi Medrano on 79-05-3947Nhhb nitrogen [Mass/Vol]22 mg/dL7-25[facility] HospitalWBC Auto (Bld) [#/Vol]Ordered By: Fredi Medrano on 53-17-1406XZB (Bld) [#/Vol]7.2 10*3/uL4.1-10.5[facility] HospitalCholesterol [Mass/volume] in Serum or PlasmaOrdered By: Anat Perez on 66-31-4999Nqbpnfdstwf [Mass/Vol]98 mg/vN624-942MtiujidnlCleveland Clinic Hillcrest HospitalComment on above:Chol less than 200 mg/dl low riskChol 201-239 mg/dl borderline riskChol 240 mg/dl and greater high riskCholesterol in LDL Calc [Mass/Vol]Ordered By: Anat Perez on 78-74-6409Ntiebxsgulz in LDL [Mass/Vol]46 mg/dL0-100[facility] HospitalComment on above:LDL ATP III CLASSIFICATIONLDL less than 100 mg/dL OptimalLDL 100-129 mg/dL Near or above wdybowfGED802-254 mg/dL Borderline highLDL 160-189 mg/dL HighLDL greater than 189 mg/dL Very highCholesterol in VLDL Calc [Mass/Vol]Ordered By: Anat Perez on 25-70-0995Lxzjntwfphi in VLDL [Mass/Vol]12 mg/dLCleveland Clinic Hillcrest HospitalGlucose Glucometer (BldC) [Mass/Vol]Ordered By: Humberto Diaz on 03-85-1547Vxudpkn [Mass/Vol]388 mg/dLCleveland Clinic Hillcrest HospitalComment on above:Random Glucose Reference Range is dependent on time and content of last meal. Glucose of more than 200 mg/dL in a nonstressed, ambulatory subject supports the diagnosis of Diabetes Mellitus.Serum or plasma high density lipoprotein (HDL) cholesterol measurementOrdered By: Anat Perez on 05-03-2023 Cholesterol in HDL [Mass/Vol]39 mg/pX99-00XojfkoabpCleveland Clinic Hillcrest Hospital Comment on above:HDL CHOL ATP-III CLASSIFICATION Cardiovascular RiskHDL > or equal to 60 mg/dL LOWHDL < 40 mg/dL HIGHSerum or plasma total cholesterol/high density lipoprotein (HDL) cholesterol mass ratOrdered By: Anat Perez on 95-58-5642Zslesikoirb.total/Cholesterol in HDL [Mass ratio]2.5 {ratio}<5.0 [facility] HospitalTriglyceride [Mass/volume] in Serum or Plasma Ordered By: Anat Perez on 94-87-7112Aqhuwzansisc [Mass/Vol]64 mg/dL0-149 [facility] HospitalComment on above:TRIG ATP III CLASSIFICATIONTRIG less than 150 mg/dL NormalTRIG 150-199 mg/dL Borderline highTRIG 200-500 mg/dL High TRIG greater than 500 mg/dL Very highStandard traceable to the Center for Disease Conrtrol and Prevention (CDC) test method. Basophils Auto (Bld) [#/Vol]Ordered By: Sushant Cordon on 05-02-2023 Basophils (Bld) [#/Vol]0.0 10*3/uL0.0-0.2[facility] Basophils/100 WBC Auto (Bld)Ordered By: Sushant Cordon on 05-02-2023 Basophils/100 WBC (Bld)0.1 %.[facility] HospitalCalcium [Mass/volume] in Serum or PlasmaOrdered By: Sushant Cordon on 05-02-2023 Calcium [Mass/Vol]8.0 mg/dL8.6-10.3[facility] HospitalCarbon dioxide, total [Moles/volume] in Serum or PlasmaOrdered By: Sushant Cordon on 21-06-0528CG6 [Moles/Vol]30.1 mmol/L21.0-31.0[facility] HospitalChloride [Moles/volume] in Serum or PlasmaOrdered By: Sushant Cordon on 37-28-0341Iiudjnse [Moles/Vol]97 mmol/G53-102HdczswzvsCleveland Clinic Hillcrest HospitalCreatinine [Mass/volume] in Serum or PlasmaOrdered By: Sushant Cordon on 09-53-7721Oxatwtmiak [Mass/Vol]0.86 mg/dL0.70-1.30[facility] HospitalEosinophils Auto (Bld) [#/Vol]Ordered By: Sushant Cordon on 72-73-2920Ldqdooiipno (Bld) [#/Vol]0.1 10*3/uL0.0-0.45[facility] HospitalEosinophils/100 WBC Auto (Bld)Ordered By: Sushant Cordon on 20-10-4298Vulpcozmknu/100 WBC (Bld)0.8 %.[facility] HospitalErythrocyte distribution width Auto (RBC) [Ratio]Ordered By: Sushant Cordon on 72-64-2725Fwluawriffk distribution width (RBC) [Ratio]17.0 % 12.0-14.8[facility] HospitalGlucose [Mass/volume] in Serum or PlasmaOrdered By: Sushant Cordon on 69-91-2168Qtxfrun [Mass/Vol]87 mg/dL 70-100[facility] HospitalComment on above:ADA recommended reference rangeRandom Glucose Reference Range is dependent on time and content of last meal. Glucose of more than 200 mg/dL in a nonstressed, ambulatory subject supports the diagnosisof Diabetes Mellitus.Hematocrit Auto (Bld) [Volume fraction]Ordered By: Sushant Cordon on 66-20-7103Pgkzkladap (Bld) [Volume fraction]27.8 %38.8-50.0[facility] HospitalHemoglobin [Mass/volume] in BloodOrdered By: Sushant Cordon on 27-11-5809Doskluxeoh (Bld) [Mass/Vol]9.3 g/dL13.0-17.0[facility] HospitalLeukocytes [#/volume] corrected for nucleated erythrocytes in Blood by Automated coun Ordered By: Sushant Cordon on 91-34-0509DRD corrected for nucl RBC Auto (Bld) [#/Vol]8.6 10*3/uL4.1-10.5[facility] HospitalLymphocytes Auto (Bld) [#/Vol]Ordered By: Sushant Cordon on 32-46-2929Mfzqmieuoro (Bld) [#/Vol]1.2 10*3/uL1.00-4.8[facility] HospitalLymphocytes/100 WBC Auto (Bld)Ordered By: Sushant Cordon on 27-37-7617Fwykwgrxoqw/100 WBC (Bld)13.7 %.[facility] HospitalH Auto (RBC) [Entitic mass] Ordered By: Sushant Cordon on 19-67-7067WWF (RBC) [Entitic mass]28.3 pg 27.5-35.2[facility] HospitalMCHC Auto (RBC) [Mass/Vol]Ordered By: Sushant Cordon on 97-54-4236MJKQ (RBC) [Mass/Vol]33.6 g/dL32.5-35.6 [facility] HospitalMCV Auto (RBC) [Entitic vol]Ordered By: Sushant Cordon on 94-13-9287IOR (RBC) [Entitic vol]84.2 fL83.5-101 [facility] HospitalMonocytes Auto (Bld) [#/Vol]Ordered By: Sushant Cordon on 65-56-7819Qaxbdbozr (Bld) [#/Vol]1.2 10*3/uL0.0-0.8 [facility] HospitalMonocytes/100 WBC Auto (Bld)Ordered By: Sushant Cordon on 64-22-8544Tfdfxkcod/100 WBC (Bld)13.5 %.[facility] HospitalNeutrophils Auto (Bld) [#/Vol]Ordered By: Sushant Cordon on 16-30-2657Tgrvirtivrd (Bld) [#/Vol]6.2 10*3/uL1.8-7.7[facility] HospitalNeutrophils/100 WBC Auto (Bld)Ordered By: Sushant Cordon on 81-25-1540Fjkkjsdwdzb/100 WBC (Bld)71.9 %.[facility] HospitalNo Panel InformationOrdered By: Sushant Cordon on 05-02-2023 Bedside Glucose CommentSee commentCleveland Clinic Hillcrest HospitalComment on above:Glu2: WILL NOTIFY DR/RNEstimated GFR (CKD-EPI)> 60.0 mL/MinCleveland Clinic Hillcrest HospitalPharmacy Creatinine Clearance (Chem59.22[facility] HospitalNucleated erythrocytes [Presence] in Blood by Automated countOrdered By: Sushant Cordon on 50-04-8094Hjkrbowgd RBC Auto Ql (Bld) 0.0 /100{WBC}0-0.5[facility] HospitalPlatelet mean volume Auto (Bld) [Entitic vol]Ordered By: Sushant Cordon on 28-50-6430Hahurvxy mean volume (Bld) [Entitic vol]9.3 fL6.6-10.1[facility] Platelets Auto (Bld) [#/Vol]Ordered By: Sushant Cordon on 05-02-2023 Platelets (Bld) [#/Vol]168 10*3/vG960-422UikqrizgrC[facility] Clinic Hill[facility] Hospital Potassium [Moles/volume] in Serum or PlasmaOrdered By: Sushant Cordon on 37-37-5721Fiojbpzbd [Moles/Vol]4.2 mmol/L3.5-5.1[facility] HospitalRBC Auto (Bld) [#/Vol]Ordered By: Sushant Cordon on 17-48-5835WMX (Bld) [#/Vol]3.29 10*6/uL3.90-5.60[facility] Systemerum or plasma anion gap determinationOrdered By: Sushant Cordon on 05-02-2023 Anion gap [Moles/Vol]8.1 mmol/L6.0-15.0[facility] Systemodium [Moles/volume] in Serum or PlasmaOrdered By: Sushant Cordon on 05-02-2023 Sodium [Moles/Vol]131 mmol/L967-331AjarinzzoCleveland Clinic Hillcrest HospitalUrea nitrogen [Mass/volume] in Serum or PlasmaOrdered By: Sushant Cordon on 94-80-2006Fsrs nitrogen [Mass/Vol]21 mg/dL7-25[facility] WBC Auto (Bld) [#/Vol]Ordered By: Sushant Cordon on 59-06-8500ZHS (Bld) [#/Vol]8.6 10*3/uL4.1-10.5[facility] HospitalActivated partial thromboplastin time (aPTT) in platelet poor plasma by coagulation aOrdered By: Anat Perez on 23-37-3350cSJN Coag (PPP) [Time]30.6 s25.1-36.5[facility] HospitalComment on above:A hematocrit value greater than 55% may lead to inaccurate results in coagulation testing. Patientshaving hematocrit values >55% require a special collection tube for coagulation studies. Please c ontact the laboratory at [phone] for redraw instructions.INR in Platelet poor plasma by Coagulation assayOrdered By: Anat Perez on 98-65-9827EBL Coag (PPP) [Relative time]1.3 {INR}[facility] HospitalComment on above: INR Therapeutic Range A) Pre- [...] on 04-30-2023 Natriuretic peptide B (Bld) [Mass/Vol]523.0 pg/mL5-100[facility] HospitalProthrombin time (PT)Ordered By: Anat Perez on 24-97-4246ID Coag (PPP) [Time]15.6 s9.0-12.9[facility] HospitalComment on above:A hematocrit value greater than 55% may lead to inaccurate results in coagulation testing. Patientshaving hematocrit values >55% require a special collection tube for coagulation studies. Please contact the laboratory at [phone] for redraw instructions.Troponin I.cardiac [Mass/volume] in Serum or Plasma by Detection limit <= 0.01 ng/Ordered By: Anat Perez on 90-64-2824Dydzuofx I.cardiac DL <= 0.01 ng/mL [Mass/Vol]53.7 pg/mL0.0-20.0[facility] HospitalComment on above:Critical Result : Called to and read back by: STEVEN BYRD at: 04/30/2023 19:24:20 by:[id number] [Mass/volume] in Serum or PlasmaOrdered By: Sushant Cordon on 24-96-2209Ozadcdvg [Mass/Vol]41.5 ng/mL23.9-336.2[facility] HospitalFolate [Mass/volume] in Serum or PlasmaOrdered By: Sushant Cordon on 36-65-4109Vyauew [Mass/Vol]28.0 ng/mL >5.9[facility] HospitalComment on above:Folate reference range: >5.9 ng/mlThe WHO technical consultation on folate and vitamin x91lkuwwtpendos has determined that folate concentrations lessthan 4 ng/ml are considered deficient.Iron [Mass/volume] in Serum or PlasmaOrdered By: Sushant Cordon on 17-47-6469Lddk [Mass/Vol]45 ug/uJ51-666SaapwhjudCleveland Clinic Hillcrest HospitalIron binding capacity [Mass/volume] in Serum or PlasmaOrdered By: Sushant Cordon on 35-17-4951Yvdf binding capacity [Mass/Vol]330 ug/nS027-577FtqjdnygmCleveland Clinic Hillcrest HospitalIron saturation [Mass Fraction] in Serum or Plasma Ordered By: Sushant Cordon on 53-54-0945Vyld saturation [Mass fraction] 13.6 %20-50[facility] HospitalMagnesium [Mass/volume] in Serum or PlasmaOrdered By: Sushant Cordon on 00-43-6934Efvwiderq [Mass/Vol]1.9 mg/dL1.9-2.7[facility] HospitalNo Panel InformationOrdered By: Sushant Cordon on 51-07-9511Tdlktar Glucose #2 CommentWill notify /rn [facility] HospitalTransferrin [Mass/volume] in Serum or Plasma Ordered By: Sushant Cordon on 25-06-3050Jsywltftbij [Mass/Vol]236 mg/dL 203-362[facility] HospitalVitamin B12 ser/plasOrdered By: Sushant Cordon on 01-02-0753Ghsyctzih (Vitamin B12) [Mass/Vol]626 pg/mL 180-914[facility] HospitalActivated partial thromboplastin time (aPTT) in platelet poor plasma by coagulation aOrdered By: Vinnie Rivas on 22-35-0982yONV Coag (PPP) [Time]27.8 s25.1-36.5[facility] Comment on above:A hematocrit value greater than 55% may lead to inaccurate results in coagulation testing. Patientshaving hematocrit values >55% require a special collection tube for coagulation studies. Please contact the laboratory at [phone] for redraw instructions.Alanine aminotransferase [Enzymatic activity/volume] in Serum or PlasmaOrdered By: Vinnie Rivas on 25-70-6078SCA [Catalytic activity/Vol]34 U/L7-52[facility] HospitalAlbumin [Mass/volume] in Serum or Plasma by Bromocresol green (BCG) dye binding metho Ordered By: Vinnie Rivas on 56-44-8671Eucjgjh BCG dye [Mass/Vol]4.0 g/dL3.5-5.7 [facility] HospitalAlkaline phosphatase [Enzymatic activity/volume] in Serum or PlasmaOrdered By: Vinnie Rivas on 40-60-4307OEN [Catalytic activity/Vol]108 U/Q42-013TedlowfjmCleveland Clinic Hillcrest HospitalAspartate aminotransferase [Enzymatic activity/volume] in Serum or PlasmaOrdered By: Vinnie Rivas on 13-20-1478FUB [Catalytic activity/Vol]46 U/C64-72VcdogxkaqCleveland Clinic Hillcrest HospitalBasophils Auto (Bld) [#/Vol]Ordered By: Vinnie Rivas on 59-41-3348Fpubpdxhc (Bld) [#/Vol]0.0 10*3/uL0.0-0.2[facility] HospitalBasophils/100 WBC Auto (Bld)Ordered By: Vinnie Rivas on 04-28-2023 Basophils/100 WBC (Bld)0.4 %.[facility] HospitalBilirubin Test strip Ql (U)Ordered By: Vinnie Rivas on 25-20-3709Sejsagior Ql (U)Negative NegativeCleveland Clinic Hillcrest HospitalBilirubin.total [Mass/volume] in Serum or PlasmaOrdered By: Vinnie Rivas on 40-97-0659Vramcgzef [Mass/Vol]0.3 mg/dL 0.3-1.0[facility] HospitalCalcium [Mass/volume] in Serum or Plasma Ordered By: Vinnie Rivas on 52-69-2980Ndtemzy [Mass/Vol]9.0 mg/dL8.6-10.3 [facility] HospitalCarbon dioxide, total [Moles/volume] in Serum or PlasmaOrdered By: Vinnie Rivas on 26-03-8650GW2 [Moles/Vol]30.4 mmol/L 21.0-31.0[facility] HospitalChloride [Moles/volume] in Serum or PlasmaOrdered By: Vinnie Rivas 00-83-3581Rwqedbbt [Moles/Vol]101 mmol/L98-107 [facility] HospitalColor Auto (U)Ordered By: Vinnie Rivas on 92-14-8762Szmda (U)YellowYellowCleveland Clinic Hillcrest HospitalCreatinine [Mass/volume] in Serum or PlasmaOrdered By: Vinnie Rivas on 43-98-3544Fwaekszewk [Mass/Vol]0.71 mg/dL0.70-1.30[facility] HospitalEosinophils Auto (Bld) [#/Vol]Ordered By: Vinnie Rivas on 11-65-3851Ueosedqekqp (Bld) [#/Vol]0.0 10*3/uL0.0-0.45[facility] HospitalEosinophils/100 WBC Auto (Bld) Ordered By: Vinnie Rivas on 87-67-6212Qejbxljpalv/100 WBC (Bld)0.5 %.[facility] HospitalErythrocyte distribution width Auto (RBC) [Ratio]Ordered By: Vinnie Rivas on 09-74-4716Qlkvqquzsji distribution width (RBC) [Ratio]18.0 % 12.0-14.8[facility] HospitalFructosamine [Moles/volume] in Serum or PlasmaOrdered By: Sushant Cordon on 95-03-7947Lvkwezgearal [Moles/Vol] 565 umol/L0-285[facility] HospitalComment on above:Published reference interval for apparently healthysubjects between age 20 and 60 is 205 - 285 umol/L and in apoorly controlled diabetic population is 228 - 563 umol/Lwith a mean of 396 umol/L.Performed at: [facility] [id number] Director: Arturo Boles PhD, Phone: [phone] Globulin Calc (S) [Mass/Vol]Ordered By: Vinnie Rivas on 05-86-6315Bzzedqtb (S) [Mass/Vol]3.2 g/dLCleveland Clinic Hillcrest HospitalGlucose Glucometer (BldC) [Mass/Vol]Ordered By: Sushant Cordon on 59-42-1557Ikuaqlb [Mass/Vol]137 mg/dLCleveland Clinic Hillcrest HospitalComment on above:Random Glucose Reference Range is dependent on time and content of last meal. Glucose of more than 200 mg/dL in a nonstressed, ambulatory subject supports the diagnosis of Diabetes Mellitus.Glucose [Mass/volume] in Serum or PlasmaOrdered By: Vinnie Rivas on 77-01-8009Erswdwz [Mass/Vol]124 mg/hA73-089SfnkavuafCleveland Clinic Hillcrest Hospital Comment on above:ADA recommended reference rangeRandom Glucose Reference Range is dependent on time and content of last meal. Glucose of more than 200 mg/dL in a nonstressed, ambulatory subject supports the diagnosisof Diabetes Mellitus. Glucose mean value [Mass/volume] in Blood Estimated from glycated hemoglobin Ordered By: Sushant Cordon on 34-88-8015Jwjtjhw glucose Estimated from glycated hemoglobin (Bld) [Mass/Vol]309 mg/dLCleveland Clinic Hillcrest Hospital Hematocrit Auto (Bld) [Volume fraction]Ordered By: Vinnie Rivas on 04-28-2023 Hematocrit (Bld) [Volume fraction]34.8 %38.8-50.0[facility] HospitalHemoglobin A1c percentageOrdered By: Sushant Cordon on 04-28-2023 HbA1c (Bld) [Mass fraction]12.4 %4.3-5.6FUC [facility] HospitalComment on above:Increased risk for diabetes: 5.7 - 6.4diabetes: >6.4glycemic control for adults with diabetes: <7.0Hemoglobin [Mass/volume] in BloodOrdered By: Vinnie Rivas on 48-98-1099Dfwayovbyz (Bld) [Mass/Vol]11.5 g/dL13.0-17.0[facility] HospitalINR in Platelet poor plasma by Coagulation assayOrdered By: Vinnie Rivas on 84-40-6717KJZ Coag (PPP) [Relative time]1.0 {INR}[facility] HospitalComment on above:INR Therapeutic Range A) Pre- and [...] strip (U) [Mass/Vol]Ordered By: Vinnie Rivas on 82-94-9205Hutfyut (U) [Mass/Vol]Negative NegativeCleveland Clinic Hillcrest HospitalLeukocytes [#/volume] corrected for nucleated erythrocytes in Blood by Automated counOrdered By: Vinnie Rivas on 63-40-1733MRA corrected for nucl RBC Auto (Bld) [#/Vol]9.7 10*3/uL4.1-10.5 [facility] HospitalLymphocytes Auto (Bld) [#/Vol]Ordered By: Vinnie Rivas on 37-28-9776Xehvdwazaqi (Bld) [#/Vol]1.4 10*3/uL1.00-4.8[facility] HospitalLymphocytes/100 WBC Auto (Bld)Ordered By: Vinnie Rivas on 45-61-1704Gleqphlmmhy/100 WBC (Bld)14.8 %.[facility] HospitalH Auto (RBC) [Entitic mass]Ordered By: Vinnei Rivas on 87-04-7266FNY (RBC) [Entitic mass]28.0 pg27.5-35.2FUC [facility] HospitalMCHC Auto (RBC) [Mass/Vol]Ordered By: Vinnie Rivas on 67-60-9123JASN (RBC) [Mass/Vol]33.2 g/dL 32.5-35.6F[facility] HospitalMCV Auto (RBC) [Entitic vol]Ordered By: Vinnie Rivas on 89-07-5034OOR (RBC) [Entitic vol]84.3 fL83.5-101[facility] HospitalMonocyte distribution width [Entitic volume] in Blood by AutomatedOrdered By: Vinnie Rivas on 60-13-7654Geuabfwr distribution width Auto (Bld) [Entitic vol]18.61 %0.00-20.00[facility] HospitalMonocytes Auto (Bld) [#/Vol]Ordered By: Vinnie Rivas on 30-80-3318Xugtustsj (Bld) [#/Vol] 0.9 10*3/uL0.0-0.8[facility] HospitalMonocytes/100 WBC Auto (Bld) Ordered By: Vinnie Rivas on 03-93-4163Aylwgdswt/100 WBC (Bld)9.3 %.[facility] HospitalNatriuretic peptide B [Mass/Vol]Ordered By: Vinnie Rivas on 18-37-3256Fteqrzkngnq peptide B (Bld) [Mass/Vol]665.0 pg/mL5-100[facility] HospitalNeutrophils Auto (Bld) [#/Vol]Ordered By: Vinnie Rivas on 43-03-6053Mwqzsnqdqco (Bld) [#/Vol]7.3 10*3/uL1.8-7.7[facility] HospitalNeutrophils/100 WBC Auto (Bld)Ordered By: Vinnie Rivas on 04-28-2023 Neutrophils/100 WBC (Bld)75.0 %.[facility] HospitalNitrite Test strip Ql (U)Ordered By: Vinnie Rivas on 79-69-6548Jkxtjga Ql (U)NegativeNegative [facility] HospitalNo Panel InformationOrdered By: Vinnie Rivas on 13-26-5332Qbdwdgeir GFR (CKD-EPI)> 60.0 mL/MinCleveland Clinic Hillcrest Hospital Pharmacy Creatinine Clearance (Chem60.38[facility] Nucleated erythrocytes [Presence] in Blood by Automated countOrdered By: Vinnie Rivas on 70-46-9750Mdbnoxqdb RBC Auto Ql (Bld)0.1 /100{WBC}0-0.5[facility] HospitalPlatelet mean volume Auto (Bld) [Entitic vol]Ordered By: Vinnie Rivas on 83-92-1103Ldjqebbn mean volume (Bld) [Entitic vol]9.3 fL6.6-10.1 [facility] HospitalPlatelets Auto (Bld) [#/Vol]Ordered By: Vinnie Rivas on 36-89-7552Lfuwnuzmp (Bld) [#/Vol]206 10*3/eD212-048TvbdouzhqCleveland Clinic Hillcrest HospitalPotassium [Moles/volume] in Serum or PlasmaOrdered By: Vinnie Rivas on 22-47-9197Zsmzbgpja [Moles/Vol]4.9 mmol/L3.5-5.1[facility] HospitalProtein Auto test strip (U) [Mass/Vol]Ordered By: Vinnie Rivas on 32-14-9054Lacycqo (U) [Mass/Vol]NegativeNegativeCleveland Clinic Hillcrest HospitalProtein [Mass/volume] in Serum or PlasmaOrdered By: Vinnie Rivas on 87-06-2372Hcyxjlc [Mass/Vol]7.2 g/dL6.4-8.9[facility] Prothrombin time (PT)Ordered By: Vinnie Rivas on 09-84-1799YY Coag (PPP) [Time] 11.8 s9.0-12.9[facility] HospitalComment on above:A hematocrit value greater than 55% may lead to inaccurate results in coagulation testing. Patientshaving hematocrit values >55% require a special collection tube for coagulation studies. Please contact the laboratory at [phone] for redraw instructions.RBC Auto (Bld) [#/Vol]Ordered By: Vinnie Rivas on 68-27-6764EJF (Bld) [#/Vol]4.12 10*6/uL3.90-5.60[facility] Systemerum or plasma albumin/globulin mass ratioOrdered By: Vinnie Rivas on 04-28-2023 Albumin/Globulin [Mass ratio]1.3 {ratio}[facility] Systemerum or plasma anion gap determinationOrdered By: Vinnie Rivas on 15-51-6862Rfcyc gap [Moles/Vol]9.5 mmol/L6.0-15.0[facility] Systemodium [Moles/volume] in Serum or PlasmaOrdered By: Vinnie Rivas on 32-74-1736Lrvmyb [Moles/Vol]136 mmol/B360-906BvuflzyvdOhio State Health Systempecific gravity Auto test strip (U) [Rel density]Ordered By: Vinnie Rivas on 91-69-9379Wmsjqqgc gravity (U) [Rel density]1.0091.001-1.030[facility] Troponin I.cardiac [Mass/volume] in Serum or Plasma by Detection limit <= 0.01 ng/Ordered By: Vinnie Rivas 27-58-2645Sghgqpxh I.cardiac DL <= 0.01 ng/mL [Mass/Vol]38.3 pg/mL0.0-20.0[facility] HospitalUrea nitrogen [Mass/volume] in Serum or PlasmaOrdered By: Vinnie Rivas 77-25-9512Qvwl nitrogen [Mass/Vol]15 mg/dL7-25[facility] HospitalUrine clarity by refractometry automatedOrdered By: Vinnie Rivas 86-55-8078Vbwycra Refractometry automated (U)ClearClearFUC West Chester HospitalUrine glucose measurement by automated test strip (mass/volume)Ordered By: Vinnie Rivas 44-15-4472Yptyjms Auto test strip (U) [Mass/Vol]Normal mg/dLNormal [facility] HospitalUrine hemoglobin detection by automated test stripOrdered By: Vinnie Rivas on 76-97-0534Costkxfwvj Auto test strip Ql (U) NegativeNegativeCleveland Clinic Hillcrest HospitalUrine leukocyte esterase detection by automated test stripOrdered By: Vinnie Rivas on 34-79-8027Kkmubtnhq esterase Auto test strip Ql (U)NegativeNegativeCleveland Clinic Hillcrest HospitalUrobilinogen Auto test strip (U) [Mass/Vol]Ordered By: Vinnie Rob on 41-57-1301Hegucwlyrtaq (U) [Mass/Vol]Normal mg/dLNormalCleveland Clinic Hillcrest HospitalWBC Auto (Bld) [#/Vol]Ordered By: Vinnie Rivas on 61-28-2350HWL (Bld) [#/Vol]9.7 10*3/uL4.1-10.5[facility] HospitalpH Auto test strip (U)Ordered By: Vinnie Rivas on 30-12-6281dE (U)6.5 [pH]5.0-9.0[facility] HospitalCoding Summaryon 90-09-3522Spflde SummaryHTMLBase 64 UdkyhadtGTg3rQe+PGhlYWQ+FF2EYEKtC49unBBldW1uZ0TYPOjSHooqIYWXIWfKKqFvuaWmZI5kuFBn ZXJu [file] bGx (more content not included)...[facility] Medical CenterConsent Formson 76-15-4601Joxfofe [id number]#1.00OTGTIFFNormal Fort Hamilton HospitalBUN/Creat Ratioon 34-16-0179nDMW Non AA>60Invalid Interpretation [facility] HospitalComment on above:Performed By: #### [id number] #### [facility] (DEFAULT) [address] [place] [address] 66869eGYA AA>60Invalid Interpretation [facility] Comment on above:Performed By: #### [id number] #### [facility] (DEFAULT) [address] [place] [address] 24254Avhejkqtcb [Mass/Vol]0.69 mg/dLLow0.90-1.30[facility] HospitalComment on above:Performed By: #### [id number] #### [facility] (DEFAULT) [address] [place] [address], [place] [address]Zaga nitrogen [Mass/Vol]14 mg/dLNormal8-26[facility] HospitalComment on above:Performed By: #### [id number] #### [facility] (DEFAULT) [address] [place] [address] 95791Sbus nitrogen/Creatinine [Mass ratio]20.2 mg/mgHigh 4.6-16.2Mpaulding county hospital HospitalComment on above:Performed By: #### [id number] #### [facility] (DEFAULT) [address] [place] [address] [id number] Urogramon 50-96-7115FW UrogramCLINICAL HISTORY: Hydronephrosis. COMPARISON: None available. TECHNIQUE: [...] Mima Solorzano MD 04/23/23 3:17 pm Technologist: MACKENZIEKettering Health Greene MemorialProvider Orderson 61-12-6641Wekhvwqg [id number]#1.00OTGTIFFFairfield Medical CenterUS RENAL AND BLADDERon 03-92-1319PwsQu[place], [place] [address] Ultrasound Report Signed Patient: MANOLO ROCHE MR#: [id number] : 1935 Acct:[id number] Age/Sex: 88 / M ADM Date: 04/12/23 Loc: US Attending Dr: JonesStaff Physician Morin Ordering Physician: Maci Morton M.D. Date of Service: 04/12/23 Procedure(s): US renal bladder Accession Number(s): [id number] cc: Maci Morton M.D.; MARIE TEJEDA [place] [address] Patient Name: MANOLO ROCHE MRN: [id number] date: 1935 Sex: M Assigned Patient Location: US Current Patient Location: US Accession/Order Number: [id number] Exam Date: 04/12/2023 09:03 Report Date: 04/12/2023 [...] Signed By: 04/12/23 1011 DD/ 1008 TD/TT: Drug And Alcohol Counselor:MIGUELANGELHRadiology, Radiologist, - 04/15/2023 [place] [address] Ultrasound Report Signed Patient: MANOLO ROCHE MR#: [id number] : 1935 Acct:[id number] Age/Sex: 88 / M ADM Date: 04/12/23 Loc: US Attending Dr: Haley-Staff Physician Mroin Ordering Physician: Maci Morton M.D. Date of Service: 04/12/23 Procedure(s): US renal bladder Accession Number(s): [id number] cc: PhysicianMaci M.D.; MARIE TEJEDA [place] [id number] Patient Name: MANOLO ROCHE MRN: [id number] date: 1935 Sex: M Assigned Patient Location: Current Patient Location: US Accession/Order Number: [id number] Exam Date: 04/12/2023 09:03 Report Date: 04/12/2023 [...] Signed By: 04/12/23 1011 DD/ 1008 TD/TT: Drug And Alcohol Counselor: [facility] HealthcareRadiology Study observation (narrative)[facility] HospitalUS RENAL AND BLADDEROrdered By: Radiologist Radiology on 49-66-6706DDIP jobsite123 Work Phone: Provider Orderson [phone] Orders [id number]#1.00OTGTIFFOhioHealth Shelby Hospital RANDOMon 13-22-7623Phktknqta Ql (U)NegativeNormalNEGATIVEMemorial Health System [facility] Comment on above:Performed By: #### CMP, LIPID #### [facility] [address] [place] [address] Dr. Kylee Oneill (U)CLEARNormalCLEARMemorial Health System Marietta Memorial HospitalComment on above: Performed By: #### CMP, LIPID #### [facility] [address] [place] [address] Dr. Kylee De La Garza (U)YELLOWNormalYELLOWMemorial Health System Marietta Memorial HospitalComment on above: Performed By: #### CMP, LIPID #### [facility] [address] [place] [address] Dr. Yilan ChangGlucose Ql (U)NegativeNormalNEGATIVEMemorial Health System Marietta Memorial HospitalComment on above:Performed By: #### CMP, LIPID #### [facility] [address] [address] [address] Kylee BunchHemoglobin Ql (U)TRACE-INTACTAbnormalNEGATIVEMemorial Health System Marietta Memorial HospitalComment on above:Performed By: #### CMP, LIPID #### [facility] [address] [place] [address] [address] Kylee uBnchKetones Ql (U)TRACEAbnormalNEGATIVEMemorial Health System Marietta Memorial HospitalComment on above:Performed By: #### CMP, LIPID #### [facility] [address] [place] [address] Dr. Kylee BunchLEUKOCYTESNegativeNormalNEGATIVEMemorial Health System Marietta Memorial HospitalComstraith hospital for special surgery on above:Performed By: #### CMP, LIPID #### [facility] [address] [place] [address] Dr. Kylee BunchNitrite Ql (U)NegativeNormalNEGATIVEMemorial Health System Marietta Memorial HospitalComment on above:Performed By: #### CMP, LIPID #### [facility] [address] [place] [address] Dr. Kylee BunchpH (U)5.5 [pH]Normal5-9[facility] on above: Performed By: #### CMP, LIPID #### [facility] [address] [place] [address] Dr. Kylee BunchSPEC GRAVITY>=1.457Aqmakjex8.005-<=1.025The [facility] Comment on above:Performed By: #### CMP, LIPID #### [facility] [address] [place] [address] Dr. Kylee BunchUA PROTEINNegativeScottsdaleNEGATIVE/ TRACEThe [facility] Comment on above:Performed By: #### CMP, LIPID #### [facility] [address] [place] [address] Dr. Kylee BunchUrobilinogen Qn (U)0.2 {Gemini'U}/dLNormal0.2 - 1.0The [facility] SystemComment on above:Performed By: #### CMP, LIPID #### [facility] [address] [place] [address] Dr. Kylee Locke AUTO DIFFon 41-25-5644PWYR #0.0 103/ulNormal0.0-0.1The [facility] SystemComment on above:Performed By: #### CMP, LIPID #### [facility] [address] [place] [address] Dr. Kylee uBnchBasophils/100 WBC (Bld)0.7 %Normal0.2-2.0[facility] Comment on above:Performed By: #### CMP, LIPID #### [facility] [address] [place] [address] Dr. Kylee Del Castillo #0.1 103/ulNormal0.0-0.7The [facility] SystemComment on above: Performed By: #### CMP, LIPID #### [facility] [address] [place] [address] Dr. Kylee Steinbergosinophils/100 WBC (Bld)2.6 %Normal0.9-7.0The [facility] Comment on above:Performed By: #### CMP, LIPID #### [facility] [address] [place] [address] Dr. Kylee Steinbergrythrocyte distribution width (RBC) [Ratio]17.2 %Critically high 11.0-15.0[facility] Memorial HospitalComment on above:Performed By: #### CMP, LIPID #### [facility] [address] [place] [address] Dr. Kylee BunchHematocrit (Bld) [Volume fraction]36.1 %Critically low42.0-54.0 The [facility] SystemComment on above:Performed By: #### CMP, LIPID #### [facility] [address] [place] [address] Dr. Kylee BunchHemoglobin (Bld) [Mass/Vol]12.1 g/dLCritically low14.0-18.0The [facility] SystemComment on above:Performed By: #### CMP, LIPID #### [facility] [address] [place] [address] [address] Kylee Mckoy #0.01 10e3/ulNormal0.00-0.03[facility] on above:Performed By: #### CMP, LIPID #### [facility] [address] [place] [address] Dr. Kylee Mckoy %0.2 %Normal0.0-0.5The [facility] SystemComstraith hospital for special surgery on above: Performed By: #### CMP, LIPID #### [facility] [address] [place] [address] Dr. Kylee Jones #1.7 103/ulNormal1.2-3.8The [facility] SystemComment on above:Performed By: #### CMP, LIPID #### [facility] [address] [place] [address] Dr. Kylee Casashocytes/100 WBC (Bld)30.9 %Tlmbua06.5-60.0[facility] on above:Performed By: #### CMP, LIPID #### [facility] [address] [place] [address] Dr. Kylee BauerUAL DIFF REQNONormalThe [facility] SystemComstraith hospital for special surgery on above: Performed By: #### CMP, LIPID #### [facility] [address] [place] [address] Dr. Kylee Beasley (RBC) [Entitic mass]27.4 isTsuhvy76.9-34.0[facility] on above:Performed By: #### CMP, LIPID #### [facility] [address] [place] [address] Dr. Kylee Beasley (RBC) [Mass/Vol]33.5 g/tKKezvpn34.9-35.2[facility] on above:Performed By: #### CMP, LIPID #### [facility] [address] [place] [address] Dr. Kylee Beasley (RBC) [Entitic vol]81.9 aVUcvoay67.0-94.0The [facility] SystemComment on above:Performed By: #### CMP, LIPID #### [facility] [address] [place] [address] [address] Kylee Abarca #0.7 103/ulNormal0.3-0.8The [facility] Hospitalment on above:Performed By: #### CMP, LIPID #### [facility] [address] [place] [address] [address] Kylee Mirelesocytes/100 WBC (Bld)12.9 %Critically high1.7-12.0The [facility] SystemComstraith hospital for special surgery on above:Performed By: #### CMP, LIPID #### [facility] [address] [place] [address] Dr. Kylee Shook #2.9 103/ulNormal1.4-6.5[facility] on above:Performed By: #### CMP, LIPID #### [facility] [address] [place] [address] Dr. Kylee Martinutrophils/100 WBC (Bld)52.7 %Uldvwa24.0-75.0[facility] on above:Performed By: #### CMP, LIPID #### [facility] [address] [place] [address] Dr. Kylee BunchPLT213 103/gvXvwlyo243-098Avp [facility] on above: Performed By: #### CMP, LIPID #### [facility] [address] [place] [address] Dr. Kylee BunchRBC4.41 106/ulCritically low4.70-6.10[facility] on above:Performed By: #### CMP, LIPID #### [facility] [address] [place] [address] Dr. Kylee BunchWBC5.4 103/ulNormal4.0-11.0The [facility] on above: Performed By: #### CMP, LIPID #### [facility] [address] [place] [address] Dr. Kylee JhaID PROFILEon 15-42-8388NSPW-HDL RATIO NORMSEE BELOWNormalThe Rifle HospitalComment on above:Result Comment: 3.3 - 4.4 LOW RISK 4.4 - 7.1 AVERAGE RISK 7.1 - 11.0 MODERATE RISK >11.0 HIGH RISKPerformed By: #### CMP, LIPID #### [facility] [address] [place] [address] [address] Kylee BunchCholesterol [Mass/Vol]166 mg/dLNormal<=200[facility] Comment on above:Performed By: #### CMP, LIPID #### [facility] [address] [place] [address] [address] Kylee BunchCholesterol in HDL [Mass/Vol]71 mg/dLCritically eyny68-56YwhMemorial Health System Marietta Memorial HospitalComment on above:Performed By: #### CMP, LIPID #### [facility] [address] [place] [address] [address] Kylee BunchCholesterol in LDL [Mass/Vol]84.8 mg/dLCleveland Clinic Marymount HospitalComment on above:Performed By: #### CMP, LIPID #### [facility] [address] [place] [address] [address] Kylee Garyestersalinas.total/Cholesterol in HDL [Mass ratio]2.3 {ratio} NormalMemorial Health System Marietta Memorial HospitalComment on above:Performed By: #### CMP, LIPID #### [facility] [address] [place] [address] Dr. Kylee BunchHDL NORMAL> or = 60 mg/dl - LOW CARDIOVASCULAR RISK <40 mg/dl - HIGH CARDIOVASCULAR RISKCleveland Clinic Marymount HospitalComment on above:Performed By: #### CMP, LIPID #### [facility] [address] [place] [address] Dr. Kylee BunchLDL CALC NORMALSEE BELOWCleveland Clinic Marymount HospitalComment on above:Result Comment: <100 mg/dl OPTIMAL 100 - 129 mg/dl NEAR OR ABOVE OPTIMAL 130 - 159 mg/dl BORDERLINE HIGH 160 - 189 mg/dl HIGH >190 mg/dl VERY HIGH Performed By: #### CMP, LIPID #### [facility] [address] [place] [address] Dr. Kylee BunchTriglyceride [Mass/Vol]51 mg/dLNormal<=150The [facility] Comment on above:Performed By: #### CMP, LIPID #### [facility] [address] [place] [address] Dr. Kylee BunchVLDL CALC10.2 mg/dLNormalThe [facility] SystemComment on above: Performed By: #### CMP, LIPID #### [facility] [address] [place] [address] Dr. Kylee HernandezALBUMIN, RAND URon 46-18-0058fUQA6.0 mg/LNormal<=30.0The [facility] SystemComment on above:Performed By: #### MALBR #### [facility] [address] [place] [address] Dr. Kylee BunchPROF 14(COMP METB)on 47-73-5186Mgitbnz [Mass/Vol]3.5 g/dLNormal 3.4-5.0The [facility] SystemComment on above:Performed By: #### CMP, LIPID #### [facility] [address] [place] [address] Dr. Kylee BunchAlbumin/Globulin [Mass ratio]1.0 {ratio}NormalThe [facility] SystemComment on above:Performed By: #### CMP, LIPID #### [facility] [address] [place] [address] Dr. Kylee Forman [Catalytic activity/Vol]97 U/NNkkiuc69-786Mwq [facility] SystemComment on above:Performed By: #### CMP, LIPID #### [facility] [address] [place] [address] Dr. Kylee Shelton [Catalytic activity/Vol]29 U/GZkqoif59-34Qyb [facility] SystemComment on above:Performed By: #### CMP, LIPID #### [facility] [address] [place] [address] Dr. Kylee Warner gap [Moles/Vol]6.7 mmol/LNormalThe [facility] SystemComment on above:Performed By: #### CMP, LIPID #### [facility] [address] [place] [address] [address] Kylee BunchAST [Catalytic activity/Vol]28 U/QLcfopi66-61Tss [facility] SystemComment on above:Performed By: #### CMP, LIPID #### [facility] [address] [place] [address] [address] Kylee BunchBilirubin [Mass/Vol]0.4 mg/dLNormal0.2-1.0The [facility] Comment on above:Performed By: #### CMP, LIPID #### [facility] [address] [place] [address] [address] Kylee BunchCalcium [Mass/Vol]8.9 mg/dLNormal8.5-10.1The [facility] Comment on above:Performed By: #### CMP, LIPID #### [facility] [address] [place] [address] [address] Kylee BunchChloride [Moles/Vol]99 mmol/ZMlswnc57-024Ban [facility] Comment on above:Performed By: #### CMP, LIPID #### [facility] [address] [place] [address] [address] Kylee BunchCO2 [Moles/Vol]33.4 mmol/LCritically high21.0-32.0The [facility] SystemComment on above:Performed By: #### CMP, LIPID #### [facility] [address] [place] [address] [address] Kylee BunchCreatinine [Mass/Vol]0.80 mg/dLNormal0.70-1.30The [facility] SystemComment on above:Performed By: #### CMP, LIPID #### [facility] [address] [place] [address] Dr. Kylee SteinbergGFR-AF JAMAICAN>60Normal>=60The [facility] SystemComment on above:Performed By: #### CMP, LIPID #### [facility] [address] [place] [address] Dr. Kylee SteinbergGFR-NON AF JAMAICAN>60Normal>=60The [facility] SystemComment on above:Performed By: #### CMP, LIPID #### [facility] [address] [place] [address] [address] Kylee BunchGlobulin (S) [Mass/Vol]3.4 g/dLNormCleveland Clinic Avon HospitalComment on above:Performed By: #### CMP, LIPID #### [facility] [address] [place] [address] [address] Kylee BunchGlucose [Mass/Vol]188 mg/dLCritically oznv92-023Deb [facility] SystemComment on above:Performed By: #### CMP, LIPID #### [facility] [address] [place] [address] Dr. Kylee BunchPotassium [Moles/Vol]4.1 mmol/LNormal3.5-5.1The [facility] Comment on above:Performed By: #### CMP, LIPID #### [facility] [address] [place] [address] Dr. Kylee BunchProtein [Mass/Vol]6.9 g/dLNormal6.4-8.2The [facility] Comment on above:Performed By: #### CMP, LIPID #### [facility] [address] [place] [address] Dr. Kylee BunchSodium [Moles/Vol]135 mmol/LCritically zch297-792Tte [facility] SystemComment on above:Performed By: #### CMP, LIPID #### [facility] [address] [place] [address] Dr. Kylee BunchUrea nitrogen [Mass/Vol]15.0 mg/dLNormal7.0-18.0The Adena Health SystemComment on above:Performed By: #### CMP, LIPID #### [facility] [address] [place] [address] Dr. Kylee Saenz nitrogen/Creatinine [Mass ratio]18.8 mg/mgNoOur Lady of Mercy HospitalComment on above:Performed By: #### CMP, LIPID #### [facility] [address] [place] [address] Dr. Kylee BunchUA RANDOM W/MICROSCOPICon 40-31-5060ACYHJOTZRAWK SEENNormalNONE SEENMemorial Health System Marietta Memorial HospitalComment on above:Performed By: #### CMP, LIPID #### [facility] [address] [address] [address] Kylee BunchBilirubin Ql (U)NegativeNormalNEGKettering Health Main Campus Comment on above:Performed By: #### CMP, LIPID #### [facility] [address] [address] [address] Kylee Perry SEENNormalNONE SEENMemorial Health System Marietta Memorial HospitalComment on above:Performed By: #### CMP, LIPID #### [facility] [address] [address] [address] Kylee BunchClarity (U)CLEARNormalCLEARMemorial Health System Marietta Memorial HospitalComment on above: Performed By: #### CMP, LIPID #### [facility] [address] [place] [address] Dr. Kylee Kowalskilor (U)LT. YELLOWNormalYELLOWMemorial Health System Marietta Memorial HospitalComment on above:Performed By: #### CMP, LIPID #### [facility] [address] [place] [address] Dr. Kylee BunchCrystals LM Nom (Urine sed)NONE SEENNormalNONE SEENMemorial Health System Marietta Memorial HospitalComment on above:Performed By: #### CMP, LIPID #### [facility] [address] [place] [address] Dr. Pichardo ChangEpithelial cells LM Ql (Urine sed)FEWAbnormalNONE SEEN /RAREMemorial Health System Marietta Memorial HospitalComment on above:Performed By: #### CMP, LIPID #### [facility] [address] [address] [address] Kylee BunchGlucose Ql (U)NegativeNormalNEGKettering Health Main CampusComment on above:Performed By: #### CMP, LIPID #### [facility] [address] [place] [address] Dr. Kylee BunchHemoglobin Ql (U)TRACE-LYSEDAbfreeman neosho hospitalalNEGKettering Health Main Campus Comment on above:Performed By: #### CMP, LIPID #### [facility] [address] [address] [address] Kylee Barrera Ql (U)NegativeNormalNEGATIVEThe [facility] Health SystemComment on above:Performed By: #### CMP, LIPID #### [facility] [address] [address] [address] Kylee BunchLEUKOCYTESNegativeNormalNEGATIVEThe [facility] Health SystemComment on above:Performed By: #### CMP, LIPID #### [facility] [address] [address] [address] Kylee AguirreCOUSVERO SEENNormalNONE SEENMemorial Health System Marietta Memorial HospitalComment on above:Performed By: #### CMP, LIPID #### [facility] [address] [address] [address] Kylee Dooley Ql (U)NegativeNormalNEGATIVEThe [facility] Health SystemComment on above:Performed By: #### CMP, LIPID #### [facility] [address] [place] [address] Dr. Kylee BunchpH (U)6.0 [pH]Normal5-9The [facility] Health SystemComment on above: Performed By: #### CMP, LIPID #### [facility] [address] [address] [address] Kylee BunchPkreqEIH3-9Itcscmgt3-9[facility] on above:Performed By: #### CMP, LIPID #### [facility] [address] [place] [address] Dr. Kylee BunchSPEC GRAVITY1.770Blvrcs2.005-<=1.025The [facility] Hospitalment on above:Performed By: #### CMP, LIPID #### [facility] [address] [place] [address] Dr. Kylee Rodas PROTEINNegativeNormalNEGATIVE/ TRACEThe [facility] on above:Performed By: #### CMP, LIPID #### [facility] [address] [place] [address] Dr. Kylee Correiabilsandhya Qn (U)0.2 {Gemini'U}/dLNormal0.2 - 1.0The [facility]ifle HospitalComment on above:Performed By: #### CMP, LIPID #### [facility] [address], [place] [address] Dr. Kylee العلي SEENNormalNONE SEENMemorial Health System Marietta Memorial HospitalComment on above: Performed By: #### CMP, LIPID #### [facility] [address], [place] [address] Dr. Kylee Christiansen Metab w/rfx MGon 01-07-2022(cont.)NormalFostoria City HospitalComment on above:Result Comment: Average GFR for 70 or more years old: 75 mL/min/1.73sq m Chronic Kidney Disease: <60 mL/min/1.73sq m Kidney failure: <15 mL/min/1.73sq m eGFR calculated using average adult body mass. Additional eGFR calculator available at: http://www.[employer]/multiple_crcl_2012.htmPerformed By: #### CDP, MELVIN, BMPX, MG, IPF #### [facility] [address] [place] [address] Airplane Cover Maker: Francisco J Fonseca MDAnion gap [Moles/Vol]9 mmol/LNormal9-17Fostoria City HospitalComment on above:Performed By: #### CDP, MELVIN, BMPX, MG, IPF #### [facility] [address] [place] [address] Airplane Cover Maker: MARLENY Brandonalcium [Mass/Vol]7.8 mg/dLLow8.6-10.4Fostoria City HospitalComment on above:Performed By: #### CDP, MELVIN, BMPX, MG, IPF #### [facility] [address] [place] [address] Airplane Cover Maker: MARLENY Brandonhloride [Moles/Vol]102 mmol/CQantql06-809TcnmbFostoria City HospitalComment on above:Performed By: #### CDP, MELVIN, BMPX, MG, IPF #### [facility] [address] [place] [address] Airplane Cover Maker: Francisco J Fonseca MDCO2 [Moles/Vol]24 mmol/VEhohoa58-21PryzvFostoria City HospitalComment on above:Performed By: #### CDP, MELVIN, BMPX, MG, IPF #### [facility] [address] [place] [address] Airplane Cover Maker: Francisco J Fonseca MDCreatinine [Mass/Vol]0.49 mg/dLLow0.70-1.20Fost[place] City HospitalComment on above:Performed By: #### CDP, MELVIN, BMPX, MG, IPF #### [facility] [address] [place] [address] Airplane Cover Maker: Francisco J Fonseca MDGFR, Amer>60Normal>60Fostoria City HospitalComment on above:Performed By: #### CDP, MELVIN, BMPX, MG, IPF #### [facility] [address] [place] [address] Airplane Cover Maker: Francisco J Fonseca MDGFR,non Amer>60Normal>60Fostoria City HospitalComment on above:Performed By: #### CDP, MELVIN, BMPX, MG, IPF #### [facility] [address] [place] [address] Airplane Cover Maker: Francisco J Fonseca MDGlucose [Mass/Vol]79 mg/zGElewmt61-83Warnv [facility] Medical CenterComment on above:Performed By: #### CDP, MELVIN, BMPX, MG, IPF #### [facility] [address] [place] [address] Airplane Cover Maker: Francisco J Fonseca MDPotassium [Moles/Vol]3.5 mmol/LLow3.7-5.3MSutter Auburn Faith HospitalComment on above:Performed By: #### CDP, MELVIN, BMPX, MG, IPF #### [facility] [address] [place] [address] Airplane Cover Maker: MEIR Brandonodium [Moles/Vol]135 mmol/BWsaqkq669-124DbaymFostoria City HospitalComment on above:Performed By: #### CDP, MELVIN, BMPX, MG, IPF #### [facility] [address] [place] [address] Airplane Cover Maker: Francisco J Fonseca MDUrea nitrogen [Mass/Vol]7 mg/dLLow8-23Fostoria City HospitalComment on above:Performed By: #### CDP, MELVIN, BMPX, MG, IPF #### [facility] [address] [place] [address] Airplane Cover Maker: MARLENY Brandon with Diffon 19-09-7607Zpm. Basophil0.00 k/uL Normal0.0-0.2[facility] Medical CenterComment on above:Performed By: #### CDP #### [address] [address] Airplane Cover Maker: Vidhya Brandon.Imm.Granulocyte0.00 k/uLNormal0.00-0.30Fostoria City HospitalComment on above:Performed By: #### CDP #### [facility] [address] [place] [address] Airplane Cover Maker: Vidhya Brandon.Neutrophil (Seg)8.33 k/uLHigh1.8-7.7MerMartin Luther King Jr. - Harbor HospitalComment on above:Performed By: #### CDP #### [facility] [address] [place] [address] Airplane Cover Maker: Francisco J Fonseca MDEosinophils (Bld) [#/Vol]0.11 10*3/uLNormal 0.0-0.4Fostoria City HospitalComment on above:Performed By: #### CDP #### [facility] [address] [place] [address] Airplane Cover Maker: Francisco J oFnseca MDLymphocytes (Bld) [#/Vol]1.22 10*3/uLNormal 1.0-4.8Fostoria City HospitalComment on above:Performed By: #### CDP #### [address] [address] Airplane Cover Maker: MARK Brandononocytes (Bld) [#/Vol]1.44 10*3/uLHigh0.1-0.8 [facility] City HospitalComment on above:Performed By: #### CDP #### [address] [address] Airplane Cover Maker: Francisco J Fonseca MDNeutrophil (Seg)75 %Oppy69-44CuztvFostoria City HospitalComment on above:Performed By: #### CDP #### [address] [address] Airplane Cover Maker: Francisco J Fonseca MDNRBC Automated0.0 per 100 WBCNormal0.0Fostoria City HospitalComment on above:Performed By: #### CDP #### [address] [address] Airplane Cover Maker: Francisco J Fonseca MDWBC (Bld) [#/Vol]11.1 10*3/uLNormal3.5-11.3MSutter Auburn Faith HospitalComment on above:Performed By: #### CDP #### [address] [address] Airplane Cover Maker: Francisco J Fonseca MDBasophils/100 WBC (Bld)0 %Normal0-2B[facility]ARYMOUNT HOSPITALComstraith hospital for special surgery on above:Performed By: #### CDP #### [address] [address] Airplane Cover Maker: Francisco J Fonseca MDEosinophils/100 WBC (Bld)1 %Normal1-4B[facility] MARYMOUNT HOSPITALComment on above:Performed By: #### CDP #### [address] [address] Airplane Cover Maker: Toan Brandonmature granulocytes/100 WBC (Bld)0 %Reproz2BMD MARYMOUNT HOSPITALComment on above:Performed By: #### CDP #### [address] [address] Airplane Cover Maker: Francisco J Fonseca MDLymphocytes/100 WBC (Bld)11 %Bga12-16SBZ MARYMOUNT HOSPITALComment on above:Performed By: #### CDP #### [address] [address] Airplane Cover Maker: MARK Brandononocytes/100 WBC (Bld)13 %High1-7BON MARYMOUNT HOSPITALComment on above:Performed By: #### CDP #### [address] [address] Airplane Cover Maker: MARK Brandonorphology Walter (Bld) [Interp]ANISOCYTOSIS PRESENTNormalBON MARYMOUNT HOSPITALComstraith hospital for special surgery on above:Result Comment: MICROCYTOSIS PRESENT 1+ TARGET CELLS 1+ ACANTHOCYTESPerformed By: #### CDP #### [address] [address] Airplane Cover Maker: Francisco J Fonseca MDErythrocyte distribution width (RBC) [Ratio]17.3 %High11.8-14.4[facility] Medical CenterComment on above:Performed By: #### CDP #### [address] [address] Airplane Cover Maker: Francisco J Fonseca MDHematocrit (Bld) [Volume fraction]36.6 %Low 40.7-50.3[facility] Medical CenterComment on above:Performed By: #### CDP #### [address] [address] Airplane Cover Maker: Francisco J Fonseca MDHemoglobin (Bld) [Mass/Vol]13.0 g/dLNormal 13.0-17.0Fost[facility] City HospitalComment on above:Performed By: #### CDP #### [address] [address] Airplane Cover Maker: MARK BrandonCH (RBC) [Entitic mass]26.5 hdBpzrbv92.2-33.5 [facility] City HospitalComment on above:Performed By: #### CDP #### [address] [address] Airplane Cover Maker: MARK BrandonCHC (RBC) [Mass/Vol]35.5 g/rSNsbz87.4-34.8Fost[facility] City HospitalComment on above:Performed By: #### CDP #### [address] [address] Airplane Cover Maker: MARK BrandonCV (RBC) [Entitic vol]74.5 fLLow82.6-102.9Fostoria City HospitalComment on above:Performed By: #### CDP #### [address] [address] Airplane Cover Maker: Isra Brandontelet CountSee Reflexed IPF ResultNormal 138-453Fostoria City HospitalComment on above:Performed By: #### CDP #### [address] [address] Airplane Cover Maker: LEIGH BrandonBC (Bld) [#/Vol]4.91 10*6/uLNormal4.21-5.77 F[facility] City HospitalComment on above:Performed By: #### CDP #### [address] [address] Airplane Cover Maker: Francisco J Fonseca MDLaboratory - Chemistry and Chemistry - challenge on [id number] [Mass/Vol]1.5 mg/dLLow1.6 - 2.6 mg/dLBON SECOURS MERCY HEALTHAnion gap [Moles/Vol]9 mmol/L9 - 17 mmol/LBON SECOURS MERCY HEALTHCalcium [Mass/Vol]7.8 mg/dLLow8.6 - 10.4 mg/dLBON SECOURS MERCY HEALTHChloride [Moles/Vol]102 mmol/L98 - 107 mmol/LBON SECOURS MERCY HEALTHCO2 [Moles/Vol]24 mmol/L20 - 31 mmol/LBON SECOURS MERCY HEALTHCreatinine [Mass/Vol]0.49 mg/dLLow 0.70 - 1.20 mg/dLBON SECOURS MERCY HEALTHGFR/1.73 sq M.predicted MDRD (S/P/Bld) [Vol rate/Area][facility] MEDICAL CENTERGlobal [facility] HEALTHComment on above:Average GFR for 70 or more years old: 75 mL/min/1.73sq m Chronic Kidney Disease: <60 mL/min/1.73sq m Kidney failure: <15 mL/min/1.73sq m eGFR calculated using average adult body mass. Additional eGFR calculator available at: http://www.[employer]/multiple_crcl_2011.htm Glucose [Mass/Vol]79 mg/dL70 - 99 mg/dLBON SECOURS MERCY HEALTHPhosphate [Mass/Vol]2.3 mg/dLLow2.5 - 4.5 mg/dLBON SECOURS MERCY HEALTHPotassium [Moles/Vol]3.5 mmol/LLow3.7 - 5.3 mmol/LBON SECOURS MERCY HEALTHSodium [Moles/Vol]135 mmol/L135 - 144 mmol/LBON SECOURS BARNEY CHILDREN'S MEDICAL CENTERY HEALTHUrea nitrogen (BldV) [Mass/Vol]7 mg/dLLow8 - 23 mg/dLBON SECOURS BAR[facility]IL[facility]EN'S MEDICAL CENTERY HEALTHLaboratory - Hematology and Cell countson 17-57-0659Ufswokdqy (Bld) [#/Vol]0.00 10*3/uLBON SECOURS MERCY HEALTHHematocrit (Bld) [Volume fraction]36.6 %Low40.7 - 50.3 %BON SECOURS The MomentY HEALTHHemoglobin (Bld) [Mass/Vol]13.0 g/dL13.0 - 17.0 g/dLBON SECST. MARY'S MEDICAL CENTER, IRONTON CAMPUSH (RBC) [Entitic mass]26.5 pg25.2 - 33.5 pgBON SECOURS HEALTH SYSTEMHC (RBC) [Mass/Vol]35.5 g/iBJhbi53.4 - 34.8 g/dLBON SECST. MARY'S MEDICAL CENTER, IRONTON CAMPUSV (RBC) [Entitic vol]74.5 fLLow82.6 - 102.9 fLSENTARA CAREPLEX HOSPITAL Morphology Walter (Bld) [Interp]MICROCYTOSIS PRESENTBON MARYMOUNT HOSPITAL Morphology Walter (Bld) [Interp]1+ TARGET CELLSSENTARA CAREPLEX HOSPITALMorphology Walter (Bld) [Interp]1+ ACANTHOCYTESBON MARYMOUNT HOSPITALPlatelet distribution width (Bld) [Ratio]17.3 %High11.8 - 14.4 %[facility]ARE[facility] HOSPITALPlatelets (Bld) [#/Vol]See Reflexed IPF ResultBON MARYMOUNT HOSPITALRBC (Bld) [#/Vol] 4.91 10*6/uL4.21 - 5.77 m/uLSENTARA CAREPLEX HOSPITALSegmented neutrophils/100 WBC (Bld)75 %High36 - 66 %[facility] CAREPLEX HOSPITALWBC (Bld) [#/Vol]11.1 10*3/uL S[facility]AREPLEX HOSPITALMagnesiumon 80-06-0683Cabrqzrkz [Mass/Vol]1.5 mg/dLLow 1.6-2.6[facility] Medical CenterComment on above:Performed By: #### CDP #### [facility] [address] [id number] Airplane Cover Maker: Maggie Brandon Panel Informationon 03-32-7678Nswzkbji Eos # 0.11BON SECMADISON HEALTHAbsolute Immature Granulocyte0.00BON MARYMOUNT HOSPITALAbsolute Lymph #1.22BON SECMADISON HEALTHAbsolute Guadalupe #1.44HighCARILION ROANOKE COMMUNITY HOSPITAL HEALTHInterpretation and review of laboratory resultsAbnormalBON MARYMOUNT HOSPITALNRBC Automated0.00.0 per 100 WBCBON MARYMOUNT HOSPITALSegs Absolute8.33HighBON SECHUDSON HOSPITAL AND CLINICPlatelet, Fcsxvbbkamkp949FCM [facility] HOSPITALComment on above:ORDERED BY LABPlatelet, Immature Hfxgbqaj96.1 %1.1 - 10.3 %BON MARYMOUNT HOSPITALComment on above: ORDERED BY LABSENTARA CAREPLEX HOSPITALInterpretation and review of laboratory resultsAbnormalBON SECSANFORD MED[facility] FARGO HEALTHGFR >60>60 mL/minBON MARYMOUNT HOSPITALGFR Non->60>60 mL/minSENTARA CAREPLEX HOSPITALInterpretation and review of laboratory results AbnormalBON PIONEER [facility]ITAL AND HEALTH SERVICESPLT, Immature Fract.on 40-17-3585Dvhbwpky, Fluoresc.230 k/gGJirddp338-330GtjwrFostoria City HospitalComment on above:Result Comment: ORDERED BY LABPerformed By: #### CDP #### [facility] [address] [place] [address] Airplane Cover Maker: SUSANNAH Brandon, Immature Fract.10.1 %Normal1.1-10.3MSutter Auburn Faith HospitalComment on above:Result Comment: ORDERED BY LAB Performed By: #### CDP #### [facility] [employer] [address] [place], [place] [id number] Airplane Cover Maker: Eliane Brandonsphokhari, Inorg.on 49-24-2568Uldiwbbjyg, Inorg.2.3 mg/dLLow2.5-4.5Fostoria City HospitalComment on above: Performed By: #### CDP, MELVIN, BMPX, MG, IPF #### [facility] [address] [place] [address] Airplane Cover Maker: Rubina Brandon Metab w/rfx MGon 01-06-2022(cont.)Normal [facility] City HospitalComment on above:Result Comment: Average GFR for 70 or more years old: 75 mL/min/1.73sq m Chronic Kidney Disease: <60 mL/min/1.73sq m Kidney failure: <15 mL/min/1.73sq m eGFR calculated using average adult body mass. Additional eGFR calculator available at: http://www.[employer]/multiple_crcl_2012.htmPerformed By: #### CDP, MELVIN, BMPX, IPF #### [facility] [address] [place] [address] Airplane Cover Maker: Francisco J Fonseca MDAnion gap [Moles/Vol]11 mmol/LNormal9-17F[facility] City HospitalComment on above:Performed By: #### CDP, MELVIN, BMPX, IPF #### [employer] [address] [place] [address] Airplane Cover Maker: Francisco J Fonseca MDCalcium [Mass/Vol]7.7 mg/dLLow8.6-10.4F[facility] City HospitalComment on above:Performed By: #### CDP, MELVIN, BMPX, IPF #### [employer] [address] [place] [address] Airplane Cover Maker: Francisco J Fonseca MDChloride [Moles/Vol]99 mmol/EVwbfby14-432OdzqiFostoria City HospitalComment on above:Performed By: #### CDP, MELVIN, BMPX, IPF #### [employer] [address] [place] [address] Airplane Cover Maker: Francisco J Fosneca MDCO2 [Moles/Vol]23 mmol/ZLnqvqu52-24AauwoFostoria City HospitalComment on above:Performed By: #### CDP, MELVIN, BMPX, IPF #### [facility] [address] [place] [address] Airplane Cover Maker: Francisco J Fonseca MDCreatinine [Mass/Vol]0.50 mg/dLLow0.70-1.20F[facility] City HospitalComment on above:Performed By: #### CDP, MELVIN, BMPX, IPF #### [facility] [address] [place] [address] Airplane Cover Maker: Francisco J Fonseca MDGFR, Amer>60Normal>60[facility] Medical CenterComment on above:Performed By: #### CDP, MELVIN, BMPX, IPF #### [facility] [address] [place] [address] Airplane Cover Maker: Francisco J Fonseca MDGFR,non Amer>60Normal>60MerMartin Luther King Jr. - Harbor HospitalComment on above:Performed By: #### CDP, MELVIN, BMPX, IPF #### [facility] [address] [place] [address] Airplane Cover Maker: Francisco J Fonseca MDGlucose [Mass/Vol]149 mg/cRDdcq82-95LwmfpSutter Auburn Faith HospitalComment on above:Performed By: #### CDP, MELVIN, BMPX, IPF #### [facility] [address] [place] [address] Airplane Cover Maker: DENISE Brandonotassium [Moles/Vol]3.6 mmol/LLow3.7-5.3MSutter Auburn Faith HospitalComment on above:Performed By: #### CDP, MELVIN, BMPX, IPF #### [facility] [address] [place] [address] Airplane Cover Maker: MEIR Brandonodium [Moles/Vol]133 mmol/SEje676-168LfhugFostoria City HospitalComment on above:Performed By: #### CDP, MELVIN, BMPX, IPF #### [facility] [address] [place] [address] Airplane Cover Maker: Francisco J Fonseca MDUrea nitrogen [Mass/Vol]11 mg/dLNormal8-23MerMartin Luther King Jr. - Harbor HospitalComment on above:Performed By: #### CDP, MELVIN, BMPX, IPF #### [facility] [address] [place] [address] Airplane Cover Maker: KRISTOFER Brandon with Diffon 29-35-9490Flu. Basophil0.03 k/uL Normal0.00-0.20F[facility] City HospitalComment on above:Performed By: #### CDP, MELVIN, BMPX, IPF #### [facility] [address] [place] [address] Airplane Cover Maker: Vidhya Brandon.Imm.Granulocyte0.05 k/uLNormal0.00-0.30Fostoria City HospitalComment on above:Performed By: #### CDP, MELVIN, BMPX, IPF #### [facility] [address] [place] [address] Airplane Cover Maker: Vidhya Brandon.Neutrophil (Seg)11.21 k/uLHigh1.50-8.10F[facility] City HospitalComment on above:Performed By: #### CDP, MELVIN, BMPX, IPF #### [facility] [address] [place] [address] Airplane Cover Maker: Francisco J Fonseca MDBasophils/100 WBC (Bld)0 %Normal0-2MSutter Auburn Faith HospitalComment on above:Performed By: #### CDP, MELVIN, BMPX, IPF #### [facility] [address] [place] [address] Airplane Cover Maker: Francisco J Fonseca MDEosinophils (Bld) [#/Vol]0.09 10*3/uLNormal 0.00-0.44F[facility] City HospitalComment on above:Performed By: #### CDP, MELVIN, BMPX, IPF #### [facility] [address] [place] [address] Airplane Cover Maker: MAXIM Brandonosinophils/100 WBC (Bld)1 %Normal1-4Fost[facility] City HospitalComment on above:Performed By: #### CDP, MELVIN, BMPX, IPF #### [address] [address] Airplane Cover Maker: Francisco J Fonseca MDErythrocyte distribution width (RBC) [Ratio]18.4 %High11.8-14.4Fost[facility] City HospitalComment on above:Performed By: #### CDP, MELVIN, BMPX, IPF #### [place] [address] Airplane Cover Maker: Francisco J Fonseca MDHematocrit (Bld) [Volume fraction]38.2 %Low 40.7-50.3Mthe jewish hospitaly [facility] Medical CenterComment on above:Performed By: #### CDP, MELVIN, BMPX, IPF #### [place] [address] Airplane Cover Maker: Francisco J Fonseca MDHemoglobin (Bld) [Mass/Vol]13.2 g/dLNormal 13.0-17.0Fost[facility] City HospitalComment on above:Performed By: #### CDP, MELVIN, BMPX, IPF #### [place] [address] Airplane Cover Maker: Francisco J Fonseca MDImmature granulocytes/100 WBC (Bld)0 %Normal0 [facility] City HospitalComment on above:Performed By: #### CDP, MELVIN, BMPX, IPF #### [place] [address] Airplane Cover Maker: Francisco J Fonseca MDLymphocytes (Bld) [#/Vol]0.82 10*3/uLLow 1.10-3.70Fost[facility] City HospitalComment on above:Performed By: #### CDP, MELVIN, BMPX, IPF #### [place] [address] Airplane Cover Maker: Jeremie Brandonmphocytes/100 WBC (Bld)6 %Ivi30-13RugpvFostoria City HospitalComment on above:Performed By: #### CDP, MELVIN, BMPX, IPF #### [facility] [address] [place] [address] Airplane Cover Maker: MARK BrandonCH (RBC) [Entitic mass]26.7 tyIgbcxz74.2-33.5 [facility] HospitalComment on above:Performed By: #### CDP, MELVIN, BMPX, IPF #### [facility] [address] [place] [address] Airplane Cover Maker: MARK BrandonCHC (RBC) [Mass/Vol]34.6 g/vFBuxyax78.4-34.8 [facility] HospitalComment on above:Performed By: #### CDP, MELVIN, BMPX, IPF #### [facility] [address] [place] [address] Airplane Cover Maker: MARK BrandonCV (RBC) [Entitic vol]77.2 fLLow82.6-102.9Fost[facility] City HospitalComment on above:Performed By: #### CDP, MELVIN, BMPX, IPF #### [facility] [address] [place] [address] Airplane Cover Maker: MARK Brandononocytes (Bld) [#/Vol]1.14 10*3/uLNormal 0.10-1.20F[facility] City HospitalComment on above:Performed By: #### CDP, MELVIN, BMPX, IPF #### [facility] [address] [place] [address] Airplane Cover Maker: MARK Brandononocytes/100 WBC (Bld)9 %Normal3-12Fost[facility] City HospitalComment on above:Performed By: #### CDP, MELVIN, BMPX, IPF #### [facility] [address] [place] [address] Airplane Cover Maker: Francisco J Fonseca MDNeutrophil (Seg)84 %Nhkq81-21YiggrFostoria City HospitalComment on above:Performed By: #### CDP, MELVIN, BMPX, IPF #### [facility] [address] [place] [address] Airplane Cover Maker: Francisco J Fonseca MDNRDENISE Automated0.0 per 100 WBCNormal0.0Fostoria City HospitalComment on above:Performed By: #### CDP, MELVIN, BMPX, IPF #### [address] [address] Airplane Cover Maker: Isra Brandontelet CountSee Reflexed IPF ResultNormal 138-453Fostoria City HospitalComment on above:Performed By: #### CDP, MELVIN, BMPX, IPF #### [address] [address] Airplane Cover Maker: LEIGH BrandonBC (Bld) [#/Vol]4.95 10*6/uLNormal4.21-5.77 [facility] City HospitalComment on above:Performed By: #### CDP, MELVIN, BMPX, IPF #### [address] [address] Airplane Cover Maker: YOLA Brandon morphology finding Nom (Bld)ANISOCYTOSIS PRESENTNormalFostoria City HospitalComment on above:Result Comment: MICROCYTOSIS PRESENTPerformed By: #### CDP, MELVIN, BMPX, IPF #### [address] [address] Airplane Cover Maker: ENRIQUE BrandonBC (Bld) [#/Vol]13.3 10*3/uLHigh3.5-11.3MSutter Auburn Faith HospitalComment on above:Performed By: #### CDP, MELVIN, BMPX, IPF #### [address] [address] Airplane Cover Maker: Francisco J Fonseca MDLaboratory - Chemistry and Chemistry - challenge on [id number] gap [Moles/Vol]11 mmol/L9 - 17 mmol/LB[facility] Calcium [Mass/Vol]7.7 mg/dLLow8.6 - 10.4 mg/dLBON [facility] MERCY HEALTHChloride [Moles/Vol]99 mmol/L98 - 107 mmol/LB[facility] HEALTHCO2 [Moles/Vol]23 mmol/L20 - 31 mmol/LB[facility] HEALTHCreatinine [Mass/Vol]0.5 mg/dLLow 0.70 - 1.20 mg/dLBON [facility] MERCY HEALTHGFR/1.73 sq M.predicted MDRD (S/P/Bld) [Vol rate/Area][facility] HEALTHComment on above:Average GFR for 70 or more years old: 75 mL/min/1.73sq m Chronic Kidney Disease: <60 mL/min/1.73sq m Kidney failure: <15 mL/min/1.73sq m eGFR calculated using average adult body mass. Additional eGFR calculator available at: http://www.[employer]/multiple_crcl_2012.htm Glucose [Mass/Vol]149 mg/aFPjrv05 - 99 mg/dLBON [facility]OURS MERCY HEALTHPhosphate [Mass/Vol]2.5 mg/dL2.5 - 4.5 mg/dLB[facility] HEALTHPotassium [Moles/Vol] 3.6 mmol/LLow3.7 - 5.3 mmol/LBON [facility] HEALTHSodium [Moles/Vol]133 mmol/GDus508 - 144 mmol/LB[facility] HEALTHUrea nitrogen (BldV) [Mass/Vol] 11 mg/dL8 - 23 mg/dLBON [facility]OURS MERCY HEALTHLaboratory - Hematology and Cell countson [id number] (Bld) [#/Vol]0.03 10*3/uLBON [facility]RS [facility] Basophils/100 WBC (Bld)0 %0 - 2 %[facility] HEALTHEosinophils/100 WBC (Bld)1 %1 - 4 %[facility] HEALTHHematocrit (Bld) [Volume fraction]38.2 % Low40.7 - 50.3 %[facility] HEALTHHemoglobin (Bld) [Mass/Vol]13.2 g/dL13.0 - 17.0 g/dLBON [facility] HEALTHImmature granulocytes/100 WBC (Bld)0 %0B[facility] HEALTHLymphocytes/100 WBC (Bld)6 %Low24 - 43 %BON SECST. [facility]ONTON CAMPUSH (RBC) [Entitic mass]26.7 pg25.2 - 33.5 pgBON SECOURS [facility]ITALHC (RBC) [Mass/Vol]34.6 g/dL28.4 - 34.8 g/dLBON SECST. MARY'S [facility], IRONTON CAMPUSV (RBC) [Entitic vol]77.2 fLLow82.6 - 102.9 fLTUCSON MEDICAL CENTER SECNORTHSH[facility] HEALTHMonocytes/100 WBC (Bld)9 %3 - 12 %[facility] HEALTHPlatelet distribution width (Bld) [Ratio]18.4 %High11.8 - 14.4 %[facility] HEALTHPlatelets (Bld) [#/Vol]See Reflexed IPF ResultBON SECOU[facility]ENTERY HEALTHRBC (Bld) [#/Vol]4.95 10*6/uL4.21 - 5.77 m/uLTUCSON MEDICAL CENTER SECMULTICARE HEALTHY HEALTHRBC (Bld) [#/Vol]ANISOCYTOSIS PRESENTCARILION ROANOKE COMMUNITY HOSPITAL HEALTHComment on above:MICROCYTOSIS PRESENTSegmented neutrophils/100 WBC (Bld)84 %High36 - 65 %BON SECNORTHSHORE PSYCHIATRIC HOSPITAL HEALTHWBC (Bld) [#/Vol]13.3 10*3/uLHighBON SECMULTICARE HEALTHY HEALTHNo Panel Informationon 01-06-2022 Platelet, Lclnxzimouie083NBX [facility] HEALTHPlatelet, Immature Jwhyapea77.1 %1.1 - 10.3 %[facility] HEALTHB[facility] HEALTHAbsolute Eos #0.09 [facility] HEALTHAbsolute Immature Granulocyte0.05[facility] HEALTHAbsolute Lymph #0.82LowTUCSON MEDICAL CENTER SECOURS MERCY HEALTHAbsolute Guadalupe #1.14[facility] HEALTHInterpretation and review of laboratory resultsAbnormalBON [facility] HEALTHNRBC Automated0.00.0 per 100 WBCTUCSON MEDICAL CENTER SECOURS MERCY HEALTHSegs Idyilzvr19.21HighBON [facility] HEALTHB[facility] HEALTHGFR >60>60 mL/minBON [facility] HEALTHGFR Non->60>60 mL/minBON SECMULTICARE HEALTHY HEALTHInterpretation and review of laboratory results AbnormalBON SECOURS [facility] MEDICAL CENTERBON [facility] HEALTHPLT, Immature Fract.on [id number], Fluoresc.252 k/bOTroulu202-064VsdlxFostoria City HospitalComment on above:Performed By: #### CDP, MELVIN, BMPX, IPF #### [employer] [address] [place] [address] Airplane Cover Maker: SUSANNAH Brandon, Immature Fract.10.1 %Normal1.1-10.3MSutter Auburn Faith HospitalComment on above:Performed By: #### CDP, MELVIN, BMPX, IPF #### [employer] [address] [place] [address] Airplane Cover Maker: DENISE Brandonhosphorus, Inorg.on 44-76-1941Qihkvtlhwe, Inorg.2.5 mg/dLNormal2.5-4.5Fostoria City HospitalComment on above: Performed By: #### CDP, MELVIN, BMPX, IPF #### [employer] [address] [place] [address] Airplane Cover Maker: Ej Brandonc Metab w/rfx MGon 21-12-0668Rzzhexear [Moles/Vol]3.4 mmol/LLow3.7-5.3MSutter Auburn Faith HospitalComment on above: Performed By: #### CDP, MELVIN, BMPX, IPF #### [employer] [address] [place] [address] Airplane Cover Maker: Francisco J Fonseca MDUrea nitrogen [Mass/Vol]14 mg/dLNormal8-23Fostoria City HospitalComment on above:Performed By: #### CDP, MELVIN, BMPX, IPF #### [facility] [address] [place] [address] Airplane Cover Maker: Francisco J Fonseca MDAnion gap [Moles/Vol]12 mmol/LNormal9-17[facility] HEALTHComment on above:Performed By: #### CDP, MELVIN, BMPX, IPF #### [facility] [address] [place] [address] Airplane Cover Maker: Francisco J Fonseca MDCalcium [Mass/Vol]8.1 mg/dLLow8.6-10.4B[facility] HEALTHComment on above:Performed By: #### CDP, MELVIN, BMPX, IPF #### [facility] [address] [place] [address] Airplane Cover Maker: Francisco J Fonseca MDChloride [Moles/Vol]98 mmol/FYtoreq16-634PMK [facility] HEALTHComment on above:Performed By: #### CDP, MELVIN, BMPX, IPF #### [facility] [address] [place] [address] Airplane Cover Maker: Francisco J Fonseca MDCO2 [Moles/Vol]24 mmol/STwfnlg64-43MLK [facility] HEALTHComment on above:Performed By: #### CDP, MELVIN, BMPX, IPF #### [facility] [address] [place] [address] Airplane Cover Maker: MARLENY Brandonreatinine [Mass/Vol]0.54 mg/dLLow0.70-1.20[facility] HEALTHComment on above:Performed By: #### CDP, MELVIN, BMPX, IPF #### [facility] [address] [place] [address] Airplane Cover Maker: Francisco J Fonseca MDGlucose [Mass/Vol]122 mg/uXRvnb55-72PHG [facility] HEALTHComment on above:Performed By: #### CDP, MELVIN, BMPX, IPF #### [facility] [address] [place] [address] Airplane Cover Maker: Francisco J Fonseca MDSodium [Moles/Vol]134 mmol/YDda148-786TBV MARYMOUNT HOSPITALComment on above:Performed By: #### CDP, MELVIN, BMPX, IPF #### [facility] [address] [place] [address] Airplane Cover Maker: Francisco J Fonseca MD(cont.)[facility] Comment on above:Result Comment: Average GFR for 70 or more years old: 75 mL/min/1.73sq m Chronic Kidney Disease: <60 mL/min/1.73sq m Kidney failure: <15 mL/min/1.73sq m eGFR calculated using average adult body mass. Additional eGFR calculator available at: http://www.[employer]/multiple_crcl_2012.htmPerformed By: #### CDP, MELVIN, BMPX, IPF #### [address] [address] Airplane Cover Maker: Francisco J Fonseca MDAnion gap [Moles/Vol]11 mmol/LNormal9-17Fostoria City HospitalComment on above:Performed By: #### CDP, MELVIN, BMPX, IPF #### [facility] [address] [place] [address] Airplane Cover Maker: MARLENY Brandonalcium [Mass/Vol]9.1 mg/dLNormal8.6-10.4Fostoria City HospitalComment on above:Performed By: #### CDP, MELVIN, BMPX, IPF #### [facility] [address] [place] [address] Airplane Cover Maker: Francisco J Fonseca MDChloride [Moles/Vol]99 mmol/QXxczbs45-691PlmrjFostoria City HospitalComment on above:Performed By: #### CDP, MELVIN, BMPX, IPF #### [facility] [address] [place] [address] Airplane Cover Maker: Francisco J Madoff, MDCO2 [Moles/Vol]25 mmol/KAavowx34-56JzvssFostoria City HospitalComment on above:Performed By: #### CDP, MELVIN, BMPX, IPF #### [facility] [address] [place] [address] Airplane Cover Maker: Francisco J Fonseac MDCreatinine [Mass/Vol]0.57 mg/dLLow0.70-1.20Fostoria City HospitalComment on above:Performed By: #### CDP, MELVIN, BMPX, IPF #### [facility] [address] [place] [address] Airplane Cover Maker: Francisco J Fonseca MDGFR, Amer>60Normal>60Fostoria City HospitalComment on above:Performed By: #### CDP, MELVIN, BMPX, IPF #### [facility] [address] [place] [address] Airplane Cover Maker: ARTURO Brandon,non Amer>60Normal>60Fostoria City HospitalComment on above:Performed By: #### CDP, MELVIN, BMPX, IPF #### [facility] [address] [place] [address] Airplane Cover Maker: Francisco J Fonseca MDGlucose [Mass/Vol]129 mg/kWVlyg39-83Ftlwq [facility] Medical CenterComment on above:Performed By: #### CDP, MELVIN, BMPX, IPF #### [facility] [address] [place] [address] Airplane Cover Maker: Francisco J Fonseca MDPotassium [Moles/Vol]3.5 mmol/LLow3.7-5.3Mthe jewish hospitaly [facility] Medical CenterComment on above:Performed By: #### CDP, MELVIN, BMPX, IPF #### [facility] [address] [place] [address] Airplane Cover Maker: MEIR Brandonodium [Moles/Vol]135 mmol/VKgrsph587-674BjbjrFostoria City HospitalComment on above:Performed By: #### CDP, MELVIN, BMPX, IPF #### [facility] [address] [place] [address] Airplane Cover Maker: Francisco J Fonseca MDUrea nitrogen [Mass/Vol]15 mg/dLNormal8-23Fostoria City HospitalComment on above:Performed By: #### CDP, MELVIN, BMPX, IPF #### [facility] [address] [place] [address] Airplane Cover Maker: Francisco J Fonseca MD(cont.)[facility] Comment on above:Result Comment: Average GFR for 70 or more years old: 75 mL/min/1.73sq m Chronic Kidney Disease: <60 mL/min/1.73sq m Kidney failure: <15 mL/min/1.73sq m eGFR calculated using average adult body mass. Additional eGFR calculator available at: http://www.[employer]/multiple_crcl_2012.htmPerformed By: #### CDP, MELVIN, BMPX, IPF #### [place] [address] Airplane Cover Maker: Francisco J Fonseca MDAnion gap [Moles/Vol]15 mmol/LNormal9-17Fostoria City HospitalComment on above:Performed By: #### CDP, MELVIN, BMPX, IPF #### [facility] [address] [place] [address] Airplane Cover Maker: Francisco J Fonseca, MDCalcium [Mass/Vol]8.2 mg/dLLow8.6-10.4Fostoria City HospitalComment on above:Performed By: #### CDP, MELVIN, BMPX, IPF #### [facility] [address] [place] [address] Airplane Cover Maker: Francisco J Fonseca MDChloride [Moles/Vol]98 mmol/KYripfb96-173AoobhFostoria City HospitalComment on above:Performed By: #### CDP, MELVIN, BMPX, IPF #### [facility] [address] [place] [address] Airplane Cover Maker: Francisco J Fonseca MDCO2 [Moles/Vol]23 mmol/CBymqdy21-57EwxjuFostoria City HospitalComment on above:Performed By: #### CDP, MELVIN, BMPX, IPF #### [facility] [address] [place] [address] Airplane Cover Maker: MARLENY Brandonreatinine [Mass/Vol]0.66 mg/dLLow0.70-1.20Fostoria City HospitalComment on above:Performed By: #### CDP, MELVIN, BMPX, IPF #### [facility] [address] [place] [address] Airplane Cover Maker: Francisco J Fonseca MDGFR, Amer>60Normal>60Fostoria City HospitalComment on above:Performed By: #### CDP, MELVIN, BMPX, IPF #### [facility] [address] [place] [address] Airplane Cover Maker: Francisco J Fonseca MDGFR,non Amer>60Normal>60Fostoria City HospitalComment on above:Performed By: #### CDP, MELVIN, BMPX, IPF #### [facility] [address] [place] [address] Airplane Cover Maker: Francisco J Fonseca MDGlucose [Mass/Vol]90 mg/lNNzhpin26-78LaslkSutter Auburn Faith HospitalComment on above:Performed By: #### CDP, MELVIN, BMPX, IPF #### [facility] [address] [place] [address] Airplane Cover Maker: Francisco J Fonseca MDPotassium [Moles/Vol]3.7 mmol/LNormal3.7-5.3 F[facility] City HospitalComment on above:Performed By: #### CDP, MELVIN, BMPX, IPF #### [facility] [address] [place] [address] Airplane Cover Maker: MEIR Brandonodium [Moles/Vol]136 mmol/NRozisv358-907KyiycFostoria City HospitalComment on above:Performed By: #### CDP, MELVIN, BMPX, IPF #### [address] [address] Airplane Cover Maker: Francisco J Fonseca MDUrea nitrogen [Mass/Vol]20 mg/dLNormal8-23Fostoria City HospitalComment on above:Performed By: #### CDP, MELVIN, BMPX, IPF #### [address] [address] Airplane Cover Maker: MARLENY Brandon with Diffon [id number]. Basophil0.04 k/uL Normal0.00-0.20Fostoria City HospitalComment on above:Performed By: #### CDP, MELVIN, BMPX, IPF #### [facility] [address] [place] [address] Airplane Cover Maker: MDAbs. RomaImm.Granulocyte0.08 k/uLNormal0.00-0.30Fostoria City HospitalComment on above:Performed By: #### CDP, MELVIN, BMPX, IPF #### [facility] [address] [place] [address] Airplane Cover Maker: Vidhya Brandon.Neutrophil (Seg)14.26 k/uLHigh1.50-8.10Fostoria City HospitalComment on above:Performed By: #### CDP, MELVIN, BMPX, IPF #### [facility] [address] [place] [address] Airplane Cover Maker: Francisco J Fonseca MDBasophils/100 WBC (Bld)0 %Normal0-2MSutter Auburn Faith HospitalComment on above:Performed By: #### CDP, MELVIN, BMPX, IPF #### [facility] [address] [place] [address] Airplane Cover Maker: Francisco J Fonseca MDEosinophils (Bld) [#/Vol]0.11 10*3/uLNormal 0.00-0.44Fostoria City HospitalComment on above:Performed By: #### CDP, MELVIN, BMPX, IPF #### [facility] [address] [place] [address] Airplane Cover Maker: MAXIM Brandonosinophils/100 WBC (Bld)1 %Normal1-4Fostoria City HospitalComment on above:Performed By: #### CDP, MELVIN, BMPX, IPF #### [facility] [address] [place] [address] Airplane Cover Maker: Francisco J Fonseca MDImmature granulocytes/100 WBC (Bld)1 %Usyc4WukivFostoria City HospitalComment on above:Performed By: #### CDP, MELVIN, BMPX, IPF #### [facility] [address] [place] [address] Airplane Cover Maker: Jeremie Brandonmphocytes (Bld) [#/Vol]0.96 10*3/uLLow 1.10-3.70Fostoria City HospitalComment on above:Performed By: #### CDP, MELVIN, BMPX, IPF #### [facility] [address] [place] [address] Airplane Cover Maker: Jeremie Brandonmphocytes/100 WBC (Bld)6 %Ank32-60DzbujFostoria City HospitalComment on above:Performed By: #### CDP, MELVIN, BMPX, IPF #### [facility] [address] [place] [address] Airplane Cover Maker: MARK Brandononocytes (Bld) [#/Vol]0.97 10*3/uLNormal 0.10-1.20Fostoria City HospitalComment on above:Performed By: #### CDP, MELVIN, BMPX, IPF #### [facility] [address] [place] [address] Airplane Cover Maker: MARK Brandononocytes/100 WBC (Bld)6 %Normal3-12Fostoria City HospitalComment on above:Performed By: #### CDP, MELVIN, BMPX, IPF #### [facility] [address] [place] [address] Airplane Cover Maker: Francisco J Fonseca MDNeutrophil (Seg)87 %Rctd28-27BahpsFostoria City HospitalComment on above:Performed By: #### CDP, MELVIN, BMPX, IPF #### [facility] [address] [place] [address] Airplane Cover Maker: Francisco J Fonseca MDErythrocyte distribution width (RBC) [Ratio]18.6 %High11.8-14.4Fostoria City HospitalComment on above:Performed By: #### CDP, MELVIN, BMPX, IPF #### [facility] [address] [place] [address] Airplane Cover Maker: Francisco J Fonseca MDHematocrit (Bld) [Volume fraction]38.9 %Low 40.7-50.3Mthe jewish hospitaly [facility] Medical CenterComment on above:Performed By: #### CDP, MELVIN, BMPX, IPF #### [facility] [address] [place] [address] Airplane Cover Maker: Francisco J Fonseca MDHemoglobin (Bld) [Mass/Vol]13.5 g/dLNormal 13.0-17.0Fostoria City HospitalComment on above:Performed By: #### CDP, MELVIN, BMPX, IPF #### [facility] [address] [place] [address] Airplane Cover Maker: MARK BrandonCH (RBC) [Entitic mass]26.8 glBzqaic89.2-33.5 F[facility] City HospitalComment on above:Performed By: #### CDP, MELVIN, BMPX, IPF #### [address] [address] Airplane Cover Maker: MARK BrandonCHC (RBC) [Mass/Vol]34.7 g/fZCfkxfc85.4-34.8 F[facility] City HospitalComment on above:Performed By: #### CDP, MELVIN, BMPX, IPF #### [facility] [address] [place] [address] Airplane Cover Maker: MARK BrandonCV (RBC) [Entitic vol]77.3 fLLow82.6-102.9Fostoria City HospitalComment on above:Performed By: #### CDP, MELVIN, BMPX, IPF #### [address] [address] Airplane Cover Maker: Francisco J Fonseca MDNRBC Automated0.0 per 100 WBCNormal0.0Fostoria City HospitalComment on above:Performed By: #### CDP, MELVIN, BMPX, IPF #### [facility] [address] [place] [address] Airplane Cover Maker: DENISE Brandonlatelet CountSee Reflexed IPF ResultNormal 138-453Fostoria City HospitalComment on above:Performed By: #### CDP, MELVIN, BMPX, IPF #### [facility] [address] [place] [address] Airplane Cover Maker: LEIGH BrandonBC (Bld) [#/Vol]5.03 10*6/uLNormal4.21-5.77 Fost[facility] City HospitalComment on above:Performed By: #### CDP, MELVIN, BMPX, IPF #### [facility] [address] [place] [address] Airplane Cover Maker: Francisco J Madoff, MDRBC morphology finding Nom (Bld)ANISOCYTOSIS PRESENTNormalMerMartin Luther King Jr. - Harbor HospitalComment on above:Result Comment: MICROCYTOSIS PRESENTPerformed By: #### CDP, MELVIN, BMPX, IPF #### [employer] [address] [place], [place] [id number] Airplane Cover Maker: Francisco J Fonseca MDWBC (Bld) [#/Vol]16.4 10*3/uLHigh3.5-11.3[facility] Medical CenterComment on above:Performed By: #### CDP, MELVIN, BMPX, IPF #### [employer] [address] [place], [place] [id number] Airplane Cover Maker: Francisco J Fonseca MDFL UGIon [id number] UGIEXAMINATION: SINGLE CONTRAST UPPER GI SERIES 01/05/2022 HISTORY: ORDERING SYSTEM PROVIDED HISTORY: repair perf ulcer TECHNOLOGIST PROVIDED HISTORY: repair perf ulcer COMPARISON: None. TECHNIQUE: Multiple single contrast images of the esophagus, gastroesophageal junction and stomach were obtained following the oral administration of water soluble contrast. FLUOROSCOPY DOSE AND TYPE OR TIME AND EXPOSURES: DAP 16.111Wmaw4 FINDINGS: Contrast was administered through the indwelling [...] Signed by: Howard Aldridge MD 01/05/22 Final resultNormalFostoria City HospitalLaboratory - Chemistry and Chemistry - challengeon [id number] [Mass/Vol]1.4 mg/dLLow1.6 - 2.6 mg/dLBON MARYMOUNT HOSPITALGFR/1.73 sq M.predicted MDRD (S/P/Bld) [Vol rate/Area]BON MARYMOUNT HOSPITALComment on above:Average GFR for 70 or more years old: 75 mL/min/1.73sq m Chronic Kidney Disease: <60 mL/min/1.73sq m Kidney failure: <15 mL/min/1.73sq m eGFR calculated using average adult body mass. Additional eGFR calculator available at: http://www.[employer]/multiple_crcl_2012.htm Potassium [Moles/Vol]3.4 mmol/LLow3.7 - 5.3 mmol/LBON SECOURS BARNEY CHILDREN'S MEDICAL CENTERY HEALTHUrea nitrogen (BldV) [Mass/Vol]14 mg/dL8 - 23 mg/dLBON SECOURS MERCY HEALTHPhosphate [Mass/Vol]2.4 mg/dLLow2.5 - 4.5 mg/dLBON [facility]RS MERCY HEALTHMagnesium [Mass/Vol]1.5 mg/dLLow1.6 - 2.6 mg/dLBON [facility]RS MERCY HEALTHAnion gap [Moles/Vol]11 mmol/L9 - 17 mmol/LBON SECOURS MERCY HEALTHCalcium [Mass/Vol]9.1 mg/dL8.6 - 10.4 mg/dLBON SECOURS MERCY HEALTHChloride [Moles/Vol]99 mmol/L98 - 107 mmol/LBON SECOURS [facility]ICAL [facility]ENTERY HEALTHCO2 [Moles/Vol]25 mmol/L20 - 31 mmol/LBON SECOURS MERCY HEALTHCreatinine [Mass/Vol]0.57 mg/dLLow0.70 - 1.20 mg/dLBON SECOURS [facility]ENTERY HEALTHGFR/1.73 sq M.predicted MDRD (S/P/Bld) [Vol rate/Area]B[facility] MARYMOUNT HOSPITALComment on above:Average GFR for 70 or more years old: 75 mL/min/1.73sq m Chronic Kidney Disease: <60 mL/min/1.73sq m Kidney failure: <15 mL/min/1.73sq m eGFR calculated using average adult body mass. Additional eGFR calculator available at: http://www.[employer]/multiple_crcl_2012.htm Glucose [Mass/Vol]129 mg/cEIwcy04 - 99 mg/dLBON SECOURS MERCY HEALTHPhosphate [Mass/Vol]2.4 mg/dLLow2.5 - 4.5 mg/dLBON [facility] MERCY HEALTHPotassium [Moles/Vol]3.5 mmol/LLow3.7 - 5.3 mmol/LBON SECOURS MERCY HEALTHSodium [Moles/Vol]135 mmol/L135 - 144 mmol/LBON MARYMOUNT HOSPITALUrea nitrogen (BldV) [Mass/Vol]15 mg/dL8 - 23 mg/dLBON MARYMOUNT HOSPITALLaboratory - Hematology and Cell countson [id number] (Bld) [#/Vol]0.04 10*3/uLBON MARYMOUNT HOSPITALBasophils/100 WBC (Bld)0 %0 - 2 %[facility] Eosinophils/100 WBC (Bld)1 %1 - 4 %[facility]ARE[facility] HOSPITALHematocrit (Bld) [Volume fraction]38.9 %Low40.7 - 50.3 %[facility] HOSPITALHemoglobin (Bld) [Mass/Vol]13.5 g/dL13.0 - 17.0 g/dLBON MARYMOUNT HOSPITALImmature granulocytes/100 WBC (Bld)1 %Mior4UKC MARYMOUNT HOSPITALLymphocytes/100 WBC (Bld)6 %Low24 - 43 %[facility]ALTH SYSTEMH (RBC) [Entitic mass]26.8 pg25.2 - 33.5 pgBON MARY RUTAN HOSPITALHC (RBC) [Mass/Vol]34.7 g/dL28.4 - 34.8 g/dL [facility]ALTH SYSTEMV (RBC) [Entitic vol]77.3 fLLow82.6 - 102.9 fLSENTARA CAREPLEX HOSPITALMonocytes/100 WBC (Bld)6 %3 - 12 %[facility] Platelet distribution width (Bld) [Ratio]18.6 %High11.8 - 14.4 %[facility] HOSPITALPlatelets (Bld) [#/Vol]See Reflexed IPF ResultBON MARYMOUNT HOSPITALRBC (Bld) [#/Vol]5.03 10*6/uL4.21 - 5.77 m/uLSENTARA CAREPLEX HOSPITALRBC (Bld) [#/Vol]ANISOCYTOSIS PRESENTSENTARA CAREPLEX HOSPITALComment on above: MICROCYTOSIS PRESENTSegmented neutrophils/100 WBC (Bld)87 %High36 - 65 %[facility]ARE[facility] HOSPITALWBC (Bld) [#/Vol]16.4 10*3/uLVeterans Affairs Medical CenterBON MARYMOUNT HOSPITAL Magnesiumon [id number] [Mass/Vol]1.4 mg/dLLow1.6-2.6Mer[facility] Medical CenterComment on above:Performed By: #### CDP, MELVIN, BMPX, IPF #### [facility] [address] [place] [address] Airplane Cover Maker: Francisco J Fonseca MDMagnesium [Mass/Vol]1.5 mg/dLLow1.6-2.6Mer[facility] Medical CenterComment on above:Performed By: #### CDP, MELVIN, BMPX, IPF #### [facility] [address] [place] [address] Airplane Cover Maker: Francisco J Fonseca MDUnc Health Rex [facility] Informationon . No evidence for contrast leakage from the stomach or duodenum following repair of perforated ulcer. 2. Gastroesophageal reflux. [facility] CONSOLIDATEDEXAMINATION: SINGLE CONTRAST UPPER GI SERIES 01/05/2022 HISTORY: ORDERING SYSTEM PROVIDED HISTORY: repair perf ulcer TECHNOLOGIST PROVIDED HISTORY: repair perf ulcer COMPARISON: None. TECHNIQUE: Multiple single contrast images of the esophagus, gastroesophageal junction and stomach were obtained following the oral administration of water soluble contrast. FLUOROSCOPY DOSE AND TYPE OR TIME AND EXPOSURES: DAP [id number] FINDINGS: Contrast was administered through the indwelling NG tube. No extravasation of contrast from the stomach. There is normal filling of stomach and proximal small bowel loops. There was some reflux into the biliary tree. Gastroesophageal reflux is noted. [facility] Howard Castorena MD - 01/05/2022 EXAMINATION: SINGLE CONTRAST UPPER GI SERIES 01/05/2022 HISTORY: ORDERING SYSTEM PROVIDED HISTORY: repair perf ulcer TECHNOLOGIST PROVIDED HISTORY: repair perf ulcer COMPARISON: None. TECHNIQUE: Multiple single contrast images of the esophagus, gastroesophageal junction and stomach were obtained following the oral administration of water soluble contrast. FLUOROSCOPY DOSE AND TYPE OR TIME AND EXPOSURES: DAP 16.096Xvda6 FINDINGS: Contrast was administered through the indwelling NG tube. No extravasation of contrast from the stomach. There is normal filling of stomach and proximal small bowel loops. There was some reflux into the biliary tree. Gastroesophageal reflux is noted. IMPRESSION: 1. No evidence for contrast leakage from the stomach or duodenum following repair of perforated ulcer. 2. Gastroesophageal reflux. [facility] Work Phone: radiology Study observation (narrative)[facility] Work Phone: Interpretation and review of laboratory results AbnormalBON SECOURS MERCY HEALTHBON SEC[facility] MERCY HEALTHGFR >60 >60 mL/minBON SECOURS MERCY HEALTHGFR Non->60>60 mL/minBON SECOURS MERCY HEALTHInterpretation and review of laboratory resultsAbnormalBON SECOURS MERCY HEALTHBON [facility] MERCY HEALTHInterpretation and review of laboratory resultsAbnormalBON SECOURS [facility] HEALTHBON SECOURS The [facility]ALTH Interpretation and review of laboratory resultsAbnormalBON SECMicroJob HEALTH Platelet, Pmgazrhpzqhg389DIK SECOURS The MomentY HEALTHPlatelet, Immature Cwxbrxbi80.5 %High1.1 - 10.3 %BON SECCarbonetworksY HEALTHBON SECOURS MERCY HEALTHAbsolute Eos # 0.11B[facility]CY HEALTHAbsolute Immature Granulocyte0.08[facility]CY HEALTHAbsolute Lymph #0.96LowBON SECOURS MERCY HEALTHAbsolute Guadalupe #0.97[facility] HEALTHInterpretation and review of laboratory resultsAbnormalBON SECOURS The MomentY HEALTHNRBC Automated0.00.0 per 100 WBCBON SECOURS The MomentY HEALTHSegs Alnxypul77.26HighBON SECOURS [facility] HEALTHTUCSON MED[facility] SECOURS MERCY HEALTHInterpretation and review of laboratory resultsAbnormalBON SECOURS [facility] HEALTHBON [facility]ERY HEALTHGFR >60>60 mL/minBON SECOURS MERCY HEALTHGFR Non- >60>60 mL/minBON SECOURS MERCY HEALTHInterpretation and review of laboratory resultsAbnormalBON SECOURS [facility] HEALTHBON SECOURS The MomentY HEALTHNo Panel InformationOrdered By: Howard Aldridge on [id number] [employer] Work Phone: PLT, Immature Fract.on [id number], Fluoresc. 250 k/pKJyogny883-657Lzqdf[address] [place], [place] [address]Comment on above:Performed By: #### CDP, MELVIN, BMPX, IPF #### [facility] [address] [place] [address] Airplane Cover Maker: SUSANNAH Brandon Immature Fract.10.5 %High1.1-10.3[facility] Delta Medical CenterComment on above:Performed By: #### CDP, MELVIN, BMPX, IPF #### [facility] [address] [place] [address] Airplane Cover Maker: Brandon Brandonhokhari Inorg.on 05-75-2954Vbyfmgrkqf, Inorg.2.4 mg/dLLow2.5-4.5Fostoria City HospitalComment on above: Performed By: #### CDP, MELVIN, BMPX, IPF #### [facility] [address] [place] [address] Airplane Cover Maker: Mckayla Brandon Inorg.1.9 mg/dLLow2.5-4.5Fostoria City HospitalComment on above:Performed By: #### CDP, MELVIN, BMPX, IPF #### [facility] [address] [place] [address] Airplane Cover Maker: Rubina Brandon Metab w/rfx MGon 59-82-7881Kakbujeta [Moles/Vol]3.4 mmol/LLow3.7-5.3Mthe jewish hospitaly [facility] Delta Medical CenterComment on above: Performed By: #### CDP, MELVIN, BMPX, IPF #### [facility] [address] [place] [address] Airplane Cover Maker: Francisco J Fonseca MD(cont.)[facility] Comment on above:Result Comment: Average GFR for 70 or more years old: 75 mL/min/1.73sq m Chronic Kidney Disease: <60 mL/min/1.73sq m Kidney failure: <15 mL/min/1.73sq m eGFR calculated using average adult body mass. Additional eGFR calculator available at: http://www.[employer].com/multiple_crcl_2012.htmPerformed By: #### CDP, MELVIN, BMPX, IPF #### [facility] [address] [place] [address] Airplane Cover Maker: Francisco J Fonseca MDAnion gap [Moles/Vol]12 mmol/LNormal9-17Fost[facility] City HospitalComment on above:Performed By: #### CDP, MELVIN, BMPX, IPF #### [facility] [address] [place] [address] Airplane Cover Maker: Francisco J Fonseca MDCalcium [Mass/Vol]8.1 mg/dLLow8.6-10.4Fostoria City HospitalComment on above:Performed By: #### CDP, MELVIN, BMPX, IPF #### [facility] [address] [place] [address] Airplane Cover Maker: Francisco J oFnseca MDChloride [Moles/Vol]99 mmol/RFiniih77-161RyafuFostoria City HospitalComment on above:Performed By: #### CDP, MELVIN, BMPX, IPF #### [facility] [address] [place] [address] Airplane Cover Maker: Francisco J Fonseca MDCO2 [Moles/Vol]23 mmol/SMeadmv37-00TnribFostoria City HospitalComment on above:Performed By: #### CDP, MELVIN, BMPX, IPF #### [facility] [address] [place] [address] Airplane Cover Maker: Francisco J Fonseca MDCreatinine [Mass/Vol]0.61 mg/dLLow0.70-1.20F[facility] City HospitalComment on above:Performed By: #### CDP, MELVIN, BMPX, IPF #### [facility] [address] [place] [address] Airplane Cover Maker: Francisco J Madoff, MDGFR, Amer>60Normal>60Fostoria City HospitalComment on above:Performed By: #### CDP, MELVIN, BMPX, IPF #### [facility] [address] [place] [address] Airplane Cover Maker: Francisco J Fonseca MDGFR,non Amer>60Normal>60Fostoria City HospitalComment on above:Performed By: #### CDP, MELVIN, BMPX, IPF #### [facility] [address] [place] [address]45 Airplane Cover Maker: Francisco J Fonseca MDGlucose [Mass/Vol]125 mg/nBNxzu36-48PdfssSutter Auburn Faith HospitalComment on above:Performed By: #### CDP, MELVIN, BMPX, IPF #### [address] [address] Airplane Cover Maker: MEIR Brandonodium [Moles/Vol]134 mmol/OTsq831-097KcnosFostoria City HospitalComment on above:Performed By: #### CDP, MELVIN, BMPX, IPF #### [facility] [address] [place] [address]08 Airplane Cover Maker: Francisco J Fonseca MDUrea nitrogen [Mass/Vol]19 mg/dLNormal8-23F[facility] City HospitalComment on above:Performed By: #### CDP, MELVIN, BMPX, IPF #### [facility] [address] [place] [address] Airplane Cover Maker: Francisco J Fonseca MD(cont.)[facility] Comment on above:Result Comment: Average GFR for 70 or more years old: 75 mL/min/1.73sq m Chronic Kidney Disease: <60 mL/min/1.73sq m Kidney failure: <15 mL/min/1.73sq m eGFR calculated using average adult body mass. Additional eGFR calculator available at: http://www.[employer] Technologies.Gem/multiple_crcl_2012.htmPerformed By: #### CDP, MELVIN, BMPX, IPF #### [facility] [address] [place] [address] Airplane Cover Maker: Francisco J Fonseca MDAnion gap [Moles/Vol]13 mmol/LNormal9-17F[facility] City HospitalComment on above:Performed By: #### CDP, MELVIN, BMPX, IPF #### [facility] [address] [place] [address] Airplane Cover Maker: Francisco J Fonseca MDCalcium [Mass/Vol]8.4 mg/dLLow8.6-10.4Fost[facility] City HospitalComment on above:Performed By: #### CDP, MELVIN, BMPX, IPF #### [address] [address] Airplane Cover Maker: MARLENY Brandonhloride [Moles/Vol]101 mmol/KDjovdy14-516GaaceFostoria City HospitalComment on above:Performed By: #### CDP, MELVIN, BMPX, IPF #### [address] [address] Airplane Cover Maker: Francisco J Fonseca MDCO2 [Moles/Vol]23 mmol/DEaluvr59-24CbktcFostoria City HospitalComment on above:Performed By: #### CDP, MELVIN, BMPX, IPF #### [place] [address] Airplane Cover Maker: Francisco J Fonseca MDCreatinine [Mass/Vol]0.73 mg/dLNormal0.70-1.20 [facility] City HospitalComment on above:Performed By: #### CDP, MELVIN, BMPX, IPF #### [address] [address] Airplane Cover Maker: ARTURO Brandon,Krystal Amer>60Normal>60MerMartin Luther King Jr. - Harbor HospitalComment on above:Performed By: #### CDP, MELVIN, BMPX, IPF #### [facility] [address] [place] [address] 114[address] Airplane Cover Maker: Francisco J Fonseca MDGFR,non Amer>60Normal>60F[facility] City HospitalComment on above:Performed By: #### CDP, MELVIN, BMPX, IPF #### [facility] [address] [place] [address] 15766 Airplane Cover Maker: Francisco J Fonseca MDGlucose [Mass/Vol]124 mg/aEVbws23-55EqhqgSutter Auburn Faith HospitalComment on above:Performed By: #### CDP, MELVIN, BMPX, IPF #### [facility] [address] [place] [address] Airplane Cover Maker: Francisco J Fonseca, MDPotassium [Moles/Vol]3.9 mmol/LNormal3.7-5.3 [facility] City HospitalComment on above:Performed By: #### CDP, MELVIN, BMPX, IPF #### [facility] [address] [place] [address] Airplane Cover Maker: MEIR Brandonodium [Moles/Vol]137 mmol/GTjwpyn806-699XosnoFostoria City HospitalComment on above:Performed By: #### CDP, MELVIN, BMPX, IPF #### [facility] [address] [place] [address] Airplane Cover Maker: Francisco J Fonseca MDUrea nitrogen [Mass/Vol]24 mg/dLHigh8-23F[facility] City HospitalComment on above:Performed By: #### CDP, MELVIN, BMPX, IPF #### [facility] [address] [place] [address] Airplane Cover Maker: Francisco J Fonseca MD(cont.)[facility] Comment on above:Result Comment: Average GFR for 70 or more years old: 75 mL/min/1.73sq m Chronic Kidney Disease: <60 mL/min/1.73sq m Kidney failure: <15 mL/min/1.73sq m eGFR calculated using average adult body mass. Additional eGFR calculator available at: http://www.[employer].Gem/multiple_crcl_2012.htmPerformed By: #### BMPX, MELVIN #### [facility] [address] [place] [address]30 Airplane Cover Maker: Francisco J Fonseca MDAnion gap [Moles/Vol]12 mmol/LNormal9-17F[facility] City HospitalComment on above:Performed By: #### BMPX, MELVIN #### [address] [address] Airplane Cover Maker: Francisco J Fonseca MDCalcium [Mass/Vol]8.5 mg/dLLow8.6-10.4F[facility] City HospitalComment on above:Performed By: #### BMPX, MELVIN #### [address] [address] Airplane Cover Maker: Francisco J Fonseca MDChloride [Moles/Vol]101 mmol/LRmmitc58-958OpdnoFostoria City HospitalComment on above:Performed By: #### BMPX, MELVIN #### [address] [address] Airplane Cover Maker: Francisco J Fonseca MDCO2 [Moles/Vol]23 mmol/IPkcdjr33-36BojbzFostoria City HospitalComment on above:Performed By: #### BMPX, MELVIN #### [address] [address] Airplane Cover Maker: Francisco J Fonseca MDCreatinine [Mass/Vol]0.82 mg/dLNormal0.70-1.20 [facility] HospitalComment on above:Performed By: #### BMPX, MELVIN #### [facility] [address] [place] [address] 15331 Airplane Cover Maker: Francisco J Fonseca MDGFR, Amer>60Normal>60F[facility] City HospitalComment on above:Performed By: #### BMPX, MELVIN #### [facility] [address] [place] [address]71 Airplane Cover Maker: Francisco J Fonseca MDGFR,non Amer>60Normal>60[facility] City HospitalComment on above:Performed By: #### BMPX, MELVIN #### [facility] [address] [place] [address] Airplane Cover Maker: Francisco J Fonseca MDGlucose [Mass/Vol]100 mg/wZDufc15-94DfldvSutter Auburn Faith HospitalComment on above:Performed By: #### BMPX, MELVIN #### [address] [address] Airplane Cover Maker: DENISE Brandonotassium [Moles/Vol]3.9 mmol/LNormal3.7-5.3 [facility] HospitalComment on above:Performed By: #### BMPX, MELVIN #### [address] [address] Airplane Cover Maker: MEIR Brandonodium [Moles/Vol]136 mmol/ZMogdvp927-742LjjzlFostoria City HospitalComment on above:Performed By: #### BMPX, MELVIN #### [address] [address] Airplane Cover Maker: Francisco J Fonseca MDUrea nitrogen [Mass/Vol]26 mg/dLHigh8-23F[facility] City HospitalComment on above:Performed By: #### BMPX, MELVIN #### [address] [address] Airplane Cover Maker: Francisco J Fonseca MD(cont.)[facility] Comment on above:Result Comment: Average GFR for 70 or more years old: 75 mL/min/1.73sq m Chronic Kidney Disease: <60 mL/min/1.73sq m Kidney failure: <15 mL/min/1.73sq m eGFR calculated using average adult body mass. Additional eGFR calculator available at: http://www.[employer].Gem/multiple_crcl_2012.htmPerformed By: #### CDP #### [address] [address] Airplane Cover Maker: Francisco J Fonseca MDAnion gap [Moles/Vol]11 mmol/LNormal9-17F[facility] City HospitalComment on above:Performed By: #### CDP #### [address] [address] Airplane Cover Maker: MARLENY Brandonalcium [Mass/Vol]8.3 mg/dLLow8.6-10.4F[facility] City HospitalComment on above:Performed By: #### CDP #### [address] [address] Airplane Cover Maker: MARLENY Brandonhloride [Moles/Vol]104 mmol/HGafgsx69-950DkwbmFostoria City HospitalComment on above:Performed By: #### CDP #### [address] [address] Airplane Cover Maker: Francisco J Fonseca MDCO2 [Moles/Vol]21 mmol/PBrauuw53-92IiutnFostoria City HospitalComment on above:Performed By: #### CDP #### [address] [address] Airplane Cover Maker: Francisco J Fonseca MDCreatinine [Mass/Vol]0.83 mg/dLNormal0.70-1.20 [facility] HospitalComment on above:Performed By: #### CDP #### [address] [address] Airplane Cover Maker: Francisco J Fonseca MDGFR, Amer>60Normal>60F[facility] City HospitalComment on above:Performed By: #### CDP #### [facility] [place] [address] Airplane Cover Maker: Francisco J Fonseca MDGFR,non Amer>60Normal>60[facility] City HospitalComment on above:Performed By: #### CDP #### [facility] [address] [place] [address] Airplane Cover Maker: Francisco J Fonseca MDGlucose [Mass/Vol]71 mg/yLBhstwr52-25CnsieSutter Auburn Faith HospitalComment on above:Performed By: #### CDP #### [facility] [address] [place] [address] Airplane Cover Maker: DENISE Brandonotassium [Moles/Vol]4.5 mmol/LNormal3.7-5.3 [facility] City HospitalComment on above:Result Comment: SPECIMEN SLIGHTLY HEMOLYZED, RESULTS MAY BE ADVERSELY AFFECTED.Performed By: #### CDP #### [address] [address] Airplane Cover Maker: MEIR Brandonodium [Moles/Vol]136 mmol/FWzoeix949-329UyeqmFostoria City HospitalComment on above:Performed By: #### CDP #### [facility] [address] [place] [address] Airplane Cover Maker: Francisco J Fonseca MDUrea nitrogen [Mass/Vol]29 mg/dLHigh8-23F[facility] City HospitalComment on above:Performed By: #### CDP #### [facility] [address] [place] [address] Airplane Cover Maker: Francisco J Fonseca [facility] with Diffon 17-30-2028Srv. Basophil0.04 k/uL Normal0.00-0.20F[facility] City HospitalComment on above:Performed By: #### CDP #### [facility] [address] [place] [address]676 Airplane Cover Maker: Vidhya Brandon. Eosinophil<0.40Teimqa9.00-0.44Fostoria City HospitalComment on above:Performed By: #### CDP #### [address] [address] Airplane Cover Maker: MDAbs. RomaImm.Granulocyte0.20 k/uLNormal0.00-0.30Fostoria City HospitalComment on above:Performed By: #### CDP #### [address] [address] Airplane Cover Maker: MDAbs. RomaNeutrophil (Seg)18.94 k/uLHigh1.50-8.10F[facility] City HospitalComment on above:Performed By: #### CDP #### [place] [address] Airplane Cover Maker: Francisco J Fonseca MDBasophils/100 WBC (Bld)0 %Normal0-2MSutter Auburn Faith HospitalComment on above:Performed By: #### CDP #### [place] [address] Airplane Cover Maker: Francisco J Fonseca MDEosinophils/100 WBC (Bld)0 %Low1-4[facility] City HospitalComment on above:Performed By: #### CDP #### [place] [address] Airplane Cover Maker: Francisco J Fonseca MDErythrocyte distribution width (RBC) [Ratio]19.0 %High11.8-14.4F[facility] City HospitalComment on above:Performed By: #### CDP #### [address] [address] Airplane Cover Maker: Francisco J Fonseca MDHematocrit (Bld) [Volume fraction]35.1 %Low 40.7-50.3[facility] Delta Medical CenterComment on above:Performed By: #### CDP #### [address] [address] Airplane Cover Maker: Francisco J Fonseca MDHemoglobin (Bld) [Mass/Vol]12.0 g/dLLow13.0-17.0 [facility] HospitalComment on above:Performed By: #### CDP #### [address] [address] Airplane Cover Maker: Francisco J Fonseca MDImmature granulocytes/100 WBC (Bld)1 %Kxjn0TwgqnFostoria City HospitalComment on above:Performed By: #### CDP #### [address] [address] Airplane Cover Maker: Francisco J Fonseca MDLymphocytes (Bld) [#/Vol]0.89 10*3/uLLow 1.10-3.70F[facility] City HospitalComment on above:Performed By: #### CDP #### [address] [address] Airplane Cover Maker: Jeremie Brandonmphocytes/100 WBC (Bld)4 %Bvu99-34RlrwqFostoria City HospitalComment on above:Performed By: #### CDP #### [address] [address] Airplane Cover Maker: MARK BrandonCH (RBC) [Entitic mass]27.6 jxJvswdd54.2-33.5 [facility] HospitalComment on above:Performed By: #### CDP #### [address] [address] Airplane Cover Maker: MARK BrandonCHC (RBC) [Mass/Vol]34.2 g/mQSoezfs87.4-34.8 [facility] HospitalComment on above:Performed By: #### CDP #### [address] [place] [address] Airplane Cover Maker: MARK BrandonCV (RBC) [Entitic vol]80.7 fLLow82.6-102.9Fostoria City HospitalComment on above:Performed By: #### CDP #### [address] [address] Airplane Cover Maker: MARK Brandononocytes (Bld) [#/Vol]1.33 10*3/uLHigh0.10-1.20 [facility] HospitalComment on above:Performed By: #### CDP #### [place] [address] Airplane Cover Maker: MARK Brandononocytes/100 WBC (Bld)6 %Normal3-12F[facility] City HospitalComment on above:Performed By: #### CDP #### [place] [address] Airplane Cover Maker: Shelli Brandonophil (Seg)89 %Nujc40-19EtqcdFostoria City HospitalComment on above:Performed By: #### CDP #### [address] [address] Airplane Cover Maker: Francisco J Fonseca MDNRBC Automated0.0 per 100 WBCNormal0.0Fostoria City HospitalComment on above:Performed By: #### CDP #### [place] [address] Airplane Cover Maker: DENISE Brandonlatelet mean volume (Bld) [Entitic vol]12.3 fL Normal8.1-13.5Fostoria City HospitalComment on above:Performed By: #### CDP #### [address] [address] Airplane Cover Maker: DENISE Brandonlatelets (Bld) [#/Vol]245 10*3/hKGrmltl277-488 [facility] HospitalComment on above:Performed By: #### CDP #### [address] [address] Airplane Cover Maker: YOLA Brandon (Bld) [#/Vol]4.35 10*6/uLNormal4.21-5.77 [facility] HospitalComment on above:Performed By: #### CDP #### [address] [address] Airplane Cover Maker: YOLA Brandon morphology finding Nom (Bld)ANISOCYTOSIS PRESENTNoKettering Health – Soin Medical CenterComment on above:Result Comment: MICROCYTOSIS PRESENTPerformed By: #### CDP #### [address] [address] Airplane Cover Maker: PABLO Brandon (Bld) [#/Vol]21.4 10*3/uLHigh3.5-11.3MSutter Auburn Faith HospitalComment on above:Performed By: #### CDP #### [address] [address] Airplane Cover Maker: Marry Brandon,Urineon 55-04-7917Myhc,UrineSpecimen Description .INDWELLING CATH URINE Culture NO GROWTH Report Status FINAL 01/04/2022Memorial HospitalComment on above:Performed By: #### CDP, MELVIN, BMPX, IPF #### [address] [address] Airplane Cover Maker: Francisco J Fonseca MDLaboratory - Chemistry and Chemistry - challenge on 26-31-1848Zinjf gap [Moles/Vol]15 mmol/L9 - 17 mmol/LBON [facility] Calcium [Mass/Vol]8.2 mg/dLLow8.6 - 10.4 mg/dLBON SECOURS MERCY HEALTHChloride [Moles/Vol]98 mmol/L98 - 107 mmol/LBON [facility] MER[facility] HEALTHCO2 [Moles/Vol]23 mmol/L20 - 31 mmol/LBON [facility] HEALTHCreatinine [Mass/Vol]0.66 mg/dLLow 0.70 - 1.20 mg/dLBON SECOURS [facility] HEALTHGFR/1.73 sq M.predicted MDRD (S/P/Bld) [Vol rate/Area]BON [facility]ARYMOUNT HOSPITALComment on above:Average GFR for 70 or more years old: 75 mL/min/1.73sq m Chronic Kidney Disease: <60 mL/min/1.73sq m Kidney failure: <15 mL/min/1.73sq m eGFR calculated using average adult body mass. Additional eGFR calculator available at: http://www.[employer]/multiple_crcl_2011.htm Glucose [Mass/Vol]90 mg/dL70 - 99 mg/dLBON SECNOR[facility] HEALTHPhosphate [Mass/Vol]1.9 mg/dLLow2.5 - 4.5 mg/dLBON SECNORTHSH[facility] HEALTHPotassium [Moles/Vol]3.7 mmol/L3.7 - 5.3 mmol/LBON SECMADISON HEALTHSodium [Moles/Vol] 136 mmol/L135 - 144 mmol/LBON [facility] SOMNIUM TechnologiesUrea nitrogen (BldV) [Mass/Vol]20 mg/dL8 - 23 mg/dLBON SECMADISON HEALTHMagnesium [Mass/Vol]1.5 mg/dLLow1.6 - 2.6 mg/dLBON [facility]NOR[facility] SOMNIUM TechnologiesAnion gap [Moles/Vol]12 mmol/L9 - 17 mmol/LBON SECNOR[facility] HEALTHCalcium [Mass/Vol]8.1 mg/dLLow8.6 - 10.4 mg/dL [facility] SOMNIUM TechnologiesChloride [Moles/Vol]99 mmol/L98 - 107 mmol/LBON [facility]NOR[facility] HEALTHCO2 [Moles/Vol]23 mmol/L20 - 31 mmol/LBON [facility] HEALTH Creatinine [Mass/Vol]0.61 mg/dLLow0.70 - 1.20 mg/dLBON [facility]NOR[facility] [employer] Technologies GFR/1.73 sq M.predicted MDRD (S/P/Bld) [Vol rate/Area][facility] Comment on above:Average GFR for 70 or more years old: 75 mL/min/1.73sq m Chronic Kidney Disease: <60 mL/min/1.73sq m Kidney failure: <15 mL/min/1.73sq m eGFR calculated using average adult body mass. Additional eGFR calculator available at: http://www.[employer]/POSLavu_crcl_2012.htm Glucose [Mass/Vol]125 mg/yPJeor18 - 99 mg/dLBON [facility]RS MERCY HEALTHPotassium [Moles/Vol]3.4 mmol/LLow3.7 - 5.3 mmol/LBON [facility]RS [facility] HEALTHSodium [Moles/Vol]134 mmol/EKkh337 - 144 mmol/LBON [facility]OURS [facility] HEALTHUrea nitrogen (BldV) [Mass/Vol]19 mg/dL8 - 23 mg/dLBON [facility] MERCY HEALTHPhosphate [Mass/Vol]2.2 mg/dLLow2.5 - 4.5 mg/dLBON [facility] MERCY HEALTHAnion gap [Moles/Vol]13 mmol/L9 - 17 mmol/LBON [facility] HEALTHCalcium [Mass/Vol]8.4 mg/dLLow8.6 - 10.4 mg/dLBON [facility] HEALTHChloride [Moles/Vol]101 mmol/L98 - 107 mmol/LBON [facility] HEALTHCO2 [Moles/Vol]23 mmol/L20 - 31 mmol/LB[facility] HEALTHCreatinine [Mass/Vol]0.73 mg/dL0.70 - 1.20 mg/dLBON SECOURS The MomentY HEALTHGFR/1.73 sq M.predicted MDRD (S/P/Bld) [Vol rate/Area][facility] Laurel & WolfComment on above:Average GFR for 70 or more years old: 75 mL/min/1.73sq m Chronic Kidney Disease: <60 mL/min/1.73sq m Kidney failure: <15 mL/min/1.73sq m eGFR calculated using average adult body mass. Additional eGFR calculator available at: http://www.[employer]/POSLavu_crcl_2011.htm Glucose [Mass/Vol]124 mg/lFOody01 - 99 mg/dLBON [facility]RS MERCY HEALTHPhosphate [Mass/Vol]2.5 [...] HEALTHChloride [Moles/Vol]101 mmol/L98 - 107 mmol/LBON [facility] HEALTHCO2 [Moles/Vol]23 mmol/L20 - 31 mmol/LBON [facility] HEALTHCreatinine [Mass/Vol]0.82 mg/dL0.70 - 1.20 mg/dLBON [facility] MERCY HEALTHGFR/1.73 sq M.predicted MDRD (S/P/Bld) [Vol rate/Area]B[facility]ARYMOUNT HOSPITALComment on above:Average GFR for 70 or more years old: 75 mL/min/1.73sq m Chronic Kidney Disease: <60 mL/min/1.73sq m Kidney failure: <15 mL/min/1.73sq m eGFR calculated using average adult body mass. Additional eGFR calculator available at: http://www.[employer].Gem/multiple_crcl_2012.htm Glucose [Mass/Vol]100 mg/kTTrmt97 - 99 mg/dLBON [facility]RS MERCY HEALTHPhosphate [Mass/Vol]2.7 mg/dL2.5 - 4.5 mg/dLBON [facility] HEALTHPotassium [Moles/Vol] 3.9 mmol/L3.7 - 5.3 mmol/LBON [facility] HEALTHSodium [Moles/Vol]136 mmol/L 135 - 144 mmol/LBON [facility] MERCY HEALTHUrea nitrogen (BldV) [Mass/Vol]26 mg/dL High8 - 23 mg/dLBON [facility]NOR[facility] HEALTHGlucose [Mass/Vol]81 mg/dL75 - 110 mg/dL [facility] HEALTHAnion gap [Moles/Vol]11 mmol/L9 - 17 mmol/LB[facility] HEALTHCalcium [Mass/Vol]8.3 mg/dLLow8.6 - 10.4 mg/dLBON [facility]NOR[facility] HEALTHChloride [Moles/Vol]104 mmol/L98 - 107 mmol/LBON [facility] HEALTHCO2 [Moles/Vol]21 mmol/L20 - 31 mmol/LBON [facility] HEALTHCreatinine [Mass/Vol] 0.83 mg/dL0.70 - 1.20 mg/dLBON SECNORTHSH[facility] HEALTHGFR/1.73 sq M.predicted MDRD (S/P/Bld) [Vol rate/Area][facility]OSPITALComment on above:Average GFR for 70 or more years old: 75 mL/min/1.73sq m Chronic Kidney Disease: <60 mL/min/1.73sq m Kidney failure: <15 mL/min/1.73sq m eGFR calculated using average adult body mass. Additional eGFR calculator available at: http://www.[employer]/multiple_crcl_2011.htm Glucose [Mass/Vol]71 mg/dL70 - 99 mg/dLBON [facility] HEALTHPhosphate [Mass/Vol]3.2 mg/dL2.5 - 4.5 mg/dLBON [facility] HEALTHPotassium [Moles/Vol] 4.5 mmol/L3.7 - 5.3 mmol/LBON [facility]US HEALTHComment on above:SPECIMEN SLIGHTLY HEMOLYZED, RESULTS MAY BE ADVERSELY AFFECTED.Sodium [Moles/Vol]136 mmol/L135 - 144 mmol/LBON [facility] HEALTHUrea nitrogen (BldV) [Mass/Vol]29 mg/dLHigh8 - 23 mg/dLBON [facility] HEALTHLaboratory - Hematology and Cell countson [id number] (Bld) [#/Vol]0.04 10*3/uLBON [facility]ALTH Basophils/100 WBC (Bld)0 %0 - 2 %[facility]ARE[facility] HOSPITALEosinophils/100 WBC (Bld)0 %Low1 - 4 %[facility] HOSPITALHematocrit (Bld) [Volume fraction]35.1 %Low40.7 - 50.3 %[facility] HOSPITALHemoglobin (Bld) [Mass/Vol]12.0 g/dLLow 13.0 - 17.0 g/dLBON MARYMOUNT HOSPITALImmature granulocytes/100 WBC (Bld)1 % Vjgp3QXH MARYMOUNT HOSPITALLymphocytes/100 WBC (Bld)4 %Low24 - 43 %[facility] SYSTEMH (RBC) [Entitic mass]27.6 pg25.2 - 33.5 pgBON SECOURS HEALTH SYSTEMHC (RBC) [Mass/Vol]34.2 g/dL28.4 - 34.8 g/dLBON SECST. MARY[facility] CAMPUSV (RBC) [Entitic vol]80.7 fLLow82.6 - 102.9 fLSENTARA CAREPLEX HOSPITAL Monocytes/100 WBC (Bld)6 %3 - 12 %[facility] HOSPITALPlatelet distribution width (Bld) [Ratio]19.0 %High11.8 - 14.4 %[facility]ARE[facility] HOSPITALPlatelet mean volume (Bld) [Entitic vol]12.3 fL8.1 - 13.5 fLCARILION ROANOKE COMMUNITY [facility]OSPITAL HEALTHPlatelets (Bld) [#/Vol]245 10*3/uLSENTARA CAREPLEX HOSPITALRBC (Bld) [#/Vol]4.35 10*6/uL 4.21 - 5.77 m/uLSENTARA CAREPLEX HOSPITALRBC (Bld) [#/Vol]ANISOCYTOSIS PRESENTSENTARA CAREPLEX HOSPITALComment on above:MICROCYTOSIS PRESENTSegmented neutrophils/100 WBC (Bld)89 %High36 - 65 %[facility]ARE[facility] HOSPITALWBC (Bld) [#/Vol]21.4 10*3/uLHighSENTARA CAREPLEX HOSPITALLaboratory - Microbiology and Antimicrobial susceptibilityon [id number] identified Cx Nom (U)NO GROWTH [facility] HOSPITALMagnesiumon [id number] [Mass/Vol]1.5 mg/dLLow 1.6-2.6[facility] Medical CenterComment on above:Performed By: #### CDP, MELVIN, BMPX, IPF #### [facility] [address] [place] [address] Airplane Cover Maker: Maggei Brandon Panel Informationon [id number] >60>60 mL/minBON [facility] MERCY HEALTHGFR Non->60>60 mL/minBON [...] HEALTHAbsolute Lymph # 0.89LowBON SEC[facility]RS MERCY HEALTHAbsolute Guadalupe #1.33HighB[facility] Interpretation and review of laboratory resultsAbnormalB[facility] NRBC Automated0.00.0 per 100 WBCBON MARYMOUNT HOSPITALSegs Sezxfnyc11.94High BON [facility] HE[facility] SERVICESSpecimen Description.INDWELLING CATH URINEBON [facility] AND HEALTH SERVICESPhosphorus, Inorg.on [id number], Inorg.2.2 mg/dLLow2.5-4.5[facility] Comment on above:Performed By: #### CDP, MELVIN, BMPX, IPF #### [facility] [address] [place] [address] Airplane Cover Maker: Francisco J Fonseca MDPhosphorus, Inorg.2.5 mg/dLNormal2.5-4.5[facility] HospitalComment on above:Performed By: #### CDP, MELVIN, BMPX, IPF #### [facility] [address] [place] [address] Airplane Cover Maker: DENISE Brandonhosphorus, Inorg.2.7 mg/dLNormal2.5-4.5[facility] HospitalComment on above:Performed By: #### BMPX, MELVIN #### [facility] [address] [place] [address] Airplane Cover Maker: DENISE Brandonhosphorus, Inorg.3.2 mg/dLNormal2.5-4.5[facility] HospitalComment on above:Performed By: #### CDP #### [facility] [address] [place] [address] Airplane Cover Maker: Rubina Brandon Metab w/rfx MGon 01-03-2022(cont.)Normal [facility] HospitalComment on above:Result Comment: Average GFR for 70 or more years old: 75 mL/min/1.73sq m Chronic Kidney Disease: <60 mL/min/1.73sq m Kidney failure: <15 mL/min/1.73sq m eGFR calculated using average adult body mass. Additional eGFR calculator available at: http://www.[employer].com/multiple_crcl_2012.htmPerformed By: #### CDP, MELVIN, BMPX, IPF #### [facility] [address] [place] [address] Airplane Cover Maker: Francisco J Fonseca MDAnion gap [Moles/Vol]12 mmol/LNormal9-17[facility] HospitalComment on above:Performed By: #### CDP, MELVIN, BMPX, IPF #### [facility] [address] [place] [address] Airplane Cover Maker: Francisco J Fonseca MDCalcium [Mass/Vol]8.3 mg/dLLow8.6-10.4[facility] HospitalComment on above:Performed By: #### CDP, MELVIN, BMPX, IPF #### [address] [address] Airplane Cover Maker: Francisco J Fonseca MDChloride [Moles/Vol]102 mmol/OJzpeyh47-910GboedFostoria City HospitalComment on above:Performed By: #### CDP, MELVIN, BMPX, IPF #### [facility] [address] [place] [address] Airplane Cover Maker: Francisco J Fonseca MDCO2 [Moles/Vol]21 mmol/JPfkkyz28-47WofwaFostoria City HospitalComment on above:Performed By: #### CDP, MELVIN, BMPX, IPF #### [facility] [address] [place] [address] Airplane Cover Maker: Francisco J Fonseca MDCreatinine [Mass/Vol]0.88 mg/dLNormal0.70-1.20 [facility] HospitalComment on above:Performed By: #### CDP, MELVIN, BMPX, IPF #### [facility] [address] [place] [address] Airplane Cover Maker: Francisco J Fonseca MDGFR, Amer>60Normal>60[facility] HospitalComment on above:Performed By: #### CDP, MELVIN, BMPX, IPF #### [facility] [address] [place] [address] Airplane Cover Maker: Francisco J Fonseca MDGFR,non Amer>60Normal>60[facility] HospitalComment on above:Performed By: #### CDP, MELVIN, BMPX, IPF #### [facility] [address] [place] [address] Airplane Cover Maker: Francisco J Fonseca MDGlucose [Mass/Vol]74 mg/lDBgobms88-58KbabfSutter Auburn Faith HospitalComment on above:Performed By: #### CDP, MELVIN, BMPX, IPF #### [address] [address] Airplane Cover Maker: Francisco J Fonseca MDPotassium [Moles/Vol]4.2 mmol/LNormal3.7-5.3 [facility] HospitalComment on above:Performed By: #### CDP, MELVIN, BMPX, IPF #### [address] [address] Airplane Cover Maker: Francisco J Fonseca MDSodium [Moles/Vol]135 mmol/WMsaqjd275-831XulhiFostoria City HospitalComment on above:Performed By: #### CDP, MELVIN, BMPX, IPF #### [facility] [address] [place] [address] Airplane Cover Maker: Francisco J Fonseca MDUrea nitrogen [Mass/Vol]29 mg/dLHigh8-23[facility] HospitalComment on above:Performed By: #### CDP, MELVIN, BMPX, IPF #### [facility] [address] [place] [address] Airplane Cover Maker: Francisco J Fonseca MD(cont.)[facility] Comment on above:Result Comment: Average GFR for 70 or more years old: 75 mL/min/1.73sq m Chronic Kidney Disease: <60 mL/min/1.73sq m Kidney failure: <15 mL/min/1.73sq m eGFR calculated using average adult body mass. Additional eGFR calculator available at: http://www.[employer].G[employer]/multiple_crcl_2012.htmPerformed By: #### CDP #### [facility] [address] [place] [address] Airplane Cover Maker: Francisco J Fonseca MDAnion gap [Moles/Vol]12 mmol/LNormal9-17[facility] HospitalComment on above:Performed By: #### CDP #### [facility] [address] [place] [address] Airplane Cover Maker: MARLENY Brandonalcium [Mass/Vol]8.4 mg/dLLow8.6-10.4[facility] HospitalComment on above:Performed By: #### CDP #### [facility] [address] [place] [address] Airplane Cover Maker: MARLENY Brandonhloride [Moles/Vol]103 mmol/SOhcimg55-511QgtkuFostoria City HospitalComment on above:Performed By: #### CDP #### [facility] [address] [place] [address] Airplane Cover Maker: Francisco J Fonseca MDCO2 [Moles/Vol]21 mmol/RCzcbyo18-87PwiqiFostoria City HospitalComment on above:Performed By: #### CDP #### [facility] [address] [place] [address] Airplane Cover Maker: MARLENY Brandonreatinine [Mass/Vol]0.93 mg/dLNormal0.70-1.20 [facility] HospitalComment on above:Performed By: #### CDP #### [facility] [address] [place] [address] Airplane Cover Maker: Francisco J Fonseca MDGFR, Amer>60Normal>60[facility] HospitalComment on above:Performed By: #### CDP #### [address] [address] Airplane Cover Maker: Francisco J Fonseca MDGFR,non Amer>60Normal>60[facility] HospitalComment on above:Performed By: #### CDP #### [address] [address] Airplane Cover Maker: Francisco J Fonseca MDGlucose [Mass/Vol]155 mg/jRAvjg60-13QmgxsSutter Auburn Faith HospitalComment on above:Performed By: #### CDP #### [address] [address] Airplane Cover Maker: DENISE Brandonotassium [Moles/Vol]3.9 mmol/LNormal3.7-5.3 [facility] HospitalComment on above:Performed By: #### CDP #### [address] [address] Airplane Cover Maker: MEIR Brandonodium [Moles/Vol]136 mmol/SIzqfuk152-164FfxwnFostoria City HospitalComment on above:Performed By: #### CDP #### [address] [address] Airplane Cover Maker: Francisco J Fonseca MDUrea nitrogen [Mass/Vol]28 mg/dLHigh8-23[facility] HospitalComment on above:Performed By: #### CDP #### [address] [address] Airplane Cover Maker: Francisco J Fonseca MD(cont.)[facility] Comment on above:Result Comment: Average GFR for 70 or more years old: 75 mL/min/1.73sq m Chronic Kidney Disease: <60 mL/min/1.73sq m Kidney failure: <15 mL/min/1.73sq m eGFR calculated using average adult body mass. Additional eGFR calculator available at: http://www.[employer].Gem/multiple_crcl_2012.htmPerformed By: #### CDP, MELVIN, BMPX, IPF #### [facility] [address] [place] [address] Airplane Cover Maker: Francisco J Fonseca MDAnion gap [Moles/Vol]11 mmol/LNormal9-17[facility] HospitalComment on above:Performed By: #### CDP, MELVIN, BMPX, IPF #### [address] [address] Airplane Cover Maker: Francisco J Fonseca MDCalcium [Mass/Vol]8.4 mg/dLLow8.6-10.4[facility] HospitalComment on above:Performed By: #### CDP, MELVIN, BMPX, IPF #### [facility] [address] [place] [address] Airplane Cover Maker: Francisco J Fonseca MDChloride [Moles/Vol]103 mmol/SRejzho47-247HcyvaFostoria City HospitalComment on above:Performed By: #### CDP, MELVIN, BMPX, IPF #### [facility] [address] [place] [address] Airplane Cover Maker: Francisco J Fonseca MDCO2 [Moles/Vol]24 mmol/ZEpbhyf10-85SmmbhFostoria City HospitalComment on above:Performed By: #### CDP, MELVIN, BMPX, IPF #### [facility] [address] [place] [address] Airplane Cover Maker: Francisco J Fonseca MDCreatinine [Mass/Vol]0.92 mg/dLNormal0.70-1.20 [facility] HospitalComment on above:Performed By: #### CDP, MELVIN, BMPX, IPF #### [facility] [address] [place] [address] Airplane Cover Maker: Francisco J Fonseca MDGFR, Amer>60Normal>60[facility] HospitalComment on above:Performed By: #### CDP, MELVIN, BMPX, IPF #### [facility] [address] [place] [address] Airplane Cover Maker: Francisco J Fonseca MDGFR,non Amer>60Normal>60[facility] HospitalComment on above:Performed By: #### CDP, MELVIN, BMPX, IPF #### [facility] [address] [place] [address] Airplane Cover Maker: Francisco J Fonseca MDGlucose [Mass/Vol]226 mg/lCJyzi18-99MvzqtSutter Auburn Faith HospitalComment on above:Performed By: #### CDP, MELVIN, BMPX, IPF #### [facility] [address] [place] [address] Airplane Cover Maker: Francisco J Fonseca, MDPotassium [Moles/Vol]5.0 mmol/LNormal3.7-5.3 [facility] HospitalComment on above:Performed By: #### CDP, MELVIN, BMPX, IPF #### [facility] [address] [place] [address] Airplane Cover Maker: Francisco J Fonseca MDSodium [Moles/Vol]138 mmol/MFnlpnn871-313UvfegFostoria City HospitalComment on above:Performed By: #### CDP, MELVIN, BMPX, IPF #### [facility] [address] [place] [address] Airplane Cover Maker: Francisco J Fonseca MDUrea nitrogen [Mass/Vol]26 mg/dLHigh8-23[facility] HospitalComment on above:Performed By: #### CDP, MELVIN, BMPX, IPF #### [facility] [address] [place] [address] Airplane Cover Maker: Francisco J Fonseca MD(cont.)NormalFostoria City Hospital Comment on above:Result Comment: Average GFR for 70 or more years old: 75 mL/min/1.73sq m Chronic Kidney Disease: <60 mL/min/1.73sq m Kidney failure: <15 mL/min/1.73sq m eGFR calculated using average adult body mass. Additional eGFR calculator available at: http://www.[employer].Gem/multiple_crcl_2012.htmPerformed By: #### CDP, MELVIN, BMPX, IPF #### [facility] [address] [place] [address] Airplane Cover Maker: Francisco J Fonseca MDAnion gap [Moles/Vol]13 mmol/LNormal9-17[facility] HospitalComment on above:Performed By: #### CDP, MELVIN, BMPX, IPF #### [facility] [address] [place] [address] Airplane Cover Maker: MARLENY Brandonalcium [Mass/Vol]8.4 mg/dLLow8.6-10.4[facility] HospitalComment on above:Performed By: #### CDP, MELVIN, BMPX, IPF #### [facility] [address] [place] [address] Airplane Cover Maker: Francisco J Fonseca MDChloride [Moles/Vol]104 mmol/URcbsib98-039MqecgFostoria City HospitalComment on above:Performed By: #### CDP, MELVIN, BMPX, IPF #### [facility] [address] [place] [address] Airplane Cover Maker: Francisco J Fonseca MDCO2 [Moles/Vol]21 mmol/AJdnnhu14-37SvreoFostoria City HospitalComment on above:Performed By: #### CDP, MELVIN, BMPX, IPF #### [facility] [address] [place] [address] Airplane Cover Maker: Francisco J Fonseca MDCreatinine [Mass/Vol]0.84 mg/dLNormal0.70-1.20 [facility] HospitalComment on above:Performed By: #### CDP, MELVIN, BMPX, IPF #### [facility] [address] [place] [address] Airplane Cover Maker: Francisco J Fonseca MDGFR, Amer>60Normal>60[facility] Medical CenterComment on above:Performed By: #### CDP, MELVIN, BMPX, IPF #### [address] [address] Airplane Cover Maker: Francisco J Fonseca MDGFR,non Amer>60Normal>60[facility] HospitalComment on above:Performed By: #### CDP, MELVIN, BMPX, IPF #### [address] [address] Airplane Cover Maker: Francisco J Fonseca MDGlucose [Mass/Vol]176 mg/eHTwiv79-91CkillLanterman Developmental CenterComment on above:Performed By: #### CDP, MELVIN, BMPX, IPF #### [place] [address] Airplane Cover Maker: Francisco J Fonseca MDPotassium [Moles/Vol]4.5 mmol/LNormal3.7-5.3 [facility] HospitalComment on above:Performed By: #### CDP, MELVIN, BMPX, IPF #### [address] [address] Airplane Cover Maker: Francisco J Fonseca MDSodium [Moles/Vol]138 mmol/YDxszis116-406IigqtFostoria City HospitalComment on above:Performed By: #### CDP, MELVIN, BMPX, IPF #### [address] [address] Airplane Cover Maker: Francisco J Fonseca MDUrea nitrogen [Mass/Vol]21 mg/dLNormal8-23[facility] HospitalComment on above:Performed By: #### CDP, MELVIN, BMPX, IPF #### [facility] [address] [place] [address] Airplane Cover Maker: Francisco J Fonseca MD(cont.)[facility] Comment on above:Result Comment: Average GFR for 70 or more years old: 75 mL/min/1.73sq m Chronic Kidney Disease: <60 mL/min/1.73sq m Kidney failure: <15 mL/min/1.73sq m eGFR calculated using average adult body mass. Additional eGFR calculator available at: http://www.[employer].Gem/multiple_crcl_2012.htmPerformed By: #### CDP, MELVIN, BMPX, IPF #### [facility] [address] [place] [address] Airplane Cover Maker: Francisco J Fonseca MDAnion gap [Moles/Vol]6 mmol/LLow9-17[facility] HospitalComment on above:Performed By: #### CDP, MELVIN, BMPX, IPF #### [facility] [address] [place] [address] Airplane Cover Maker: Francisco J Fonseca MDCalcium [Mass/Vol]8.5 mg/dLLow8.6-10.4[facility] HospitalComment on above:Performed By: #### CDP, MELVIN, BMPX, IPF #### [facility] [address] [place] [address] Airplane Cover Maker: Francisco J Fonseca MDChloride [Moles/Vol]105 mmol/DMvahni62-745HhsvoFostoria City HospitalComment on above:Performed By: #### CDP, MELVIN, BMPX, IPF #### [facility] [address] [place] [address] Airplane Cover Maker: Francisco J Fonseca MDCO2 [Moles/Vol]25 mmol/XUzesnd17-30PknewFostoria City HospitalComment on above:Performed By: #### CDP, MELVIN, BMPX, IPF #### [facility] [address] [place] [address] Airplane Cover Maker: MARLENY Brandonreatinine [Mass/Vol]0.75 mg/dLNormal0.70-1.20 [facility] HospitalComment on above:Performed By: #### CDP, MELVIN, BMPX, IPF #### [address] [address] Airplane Cover Maker: Francisco J Fonseca MDGFR, Amer>60Normal>60MerMartin Luther King Jr. - Harbor HospitalComment on above:Performed By: #### CDP, MELVIN, BMPX, IPF #### [address] [address] Airplane Cover Maker: ARTURO Brandon,non Amer>60Normal>60[facility] Medical CenterComment on above:Performed By: #### CDP, MELVIN, BMPX, IPF #### [address] [address] Airplane Cover Maker: Francisco J Fonseca MDGlucose [Mass/Vol]81 mg/cAEqychp12-81QamqvSutter Auburn Faith HospitalComment on above:Performed By: #### CDP, MELVIN, BMPX, IPF #### [address] [address] Airplane Cover Maker: Francisco J Fonseca MDPotassium [Moles/Vol]4.6 mmol/LNormal3.7-5.3 [facility] HospitalComment on above:Performed By: #### CDP, MELVIN, BMPX, IPF #### [address] [address] Airplane Cover Maker: Francisco J Fonseca MDSodium [Moles/Vol]136 mmol/OAhxxwn273-019PtwmpFostoria City HospitalComment on above:Performed By: #### CDP, MELVIN, BMPX, IPF #### [facility] [address] [place] [address] Airplane Cover Maker: Francisco J Fonseca MDUrea nitrogen [Mass/Vol]18 mg/dLNormal8-23[facility] HospitalComment on above:Performed By: #### CDP, MELVIN, BMPX, IPF #### [address] [address] Airplane Cover Maker: MARLENY Brandon with Diffon 60-07-4663Jmh. Basophil0.00 k/uL Normal0.0-0.2MSutter Auburn Faith HospitalComment on above:Performed By: #### CDP #### [address] [address] Airplane Cover Maker: Vidhya Brandon.Imm.Granulocyte0.00 k/uLNormal0.00-0.30[facility] HospitalComment on above:Performed By: #### CDP #### [address] [address] Airplane Cover Maker: Vidhya Brandon.Neutrophil (Seg)19.89 k/uLHigh1.8-7.7[facility] HospitalComment on above:Performed By: #### CDP #### [address] [address] Airplane Cover Maker: Francisco J Fonseca MDBasophils/100 WBC (Bld)0 %Normal0-2MSutter Auburn Faith HospitalComment on above:Performed By: #### CDP #### [address] [address] Airplane Cover Maker: Francisco J Fonseca MDEosinophils (Bld) [#/Vol]0.00 10*3/uLNormal 0.0-0.4[facility] HospitalComment on above:Performed By: #### CDP #### [address] [address] Airplane Cover Maker: Francisco J Madoff, MDEosinophils/100 WBC (Bld)0 %Low1-4[facility] HospitalComment on above:Performed By: #### CDP #### [address] [address] Airplane Cover Maker: Francisco J Fonseca MDImmature granulocytes/100 WBC (Bld)0 %Normal0 [facility] HospitalComment on above:Performed By: #### CDP #### [address] [address] Airplane Cover Maker: Francisco J Fonseca MDLymphocytes (Bld) [#/Vol]0.88 10*3/uLLow1.0-4.8 [facility] HospitalComment on above:Performed By: #### CDP #### [address] [address] Airplane Cover Maker: Francisco J Fonseca MDLymphocytes/100 WBC (Bld)4 %Gkg39-67HfehwFostoria City HospitalComment on above:Performed By: #### CDP #### [address] [address] Airplane Cover Maker: MARK Brandononocytes (Bld) [#/Vol]1.33 10*3/uLHigh0.1-0.8 [facility] HospitalComment on above:Performed By: #### CDP #### [address] [address] Airplane Cover Maker: Francisco J Fonseca MDMonocytes/100 WBC (Bld)6 %Normal1-7[facility] HospitalComment on above:Performed By: #### CDP #### [address] [address] Airplane Cover Maker: Francisco J Fonseca MDMorphology Walter (Bld) [Interp]MICROCYTOSIS PRESENTNormalFostoria City HospitalComment on above:Result Comment: ANISOCYTOSIS PRESENT 1+ ACANTHOCYTESPerformed By: #### CDP #### [address] [address] Airplane Cover Maker: Francisco J Fonseca MDNeutrophil (Seg)90 %Zmbd30-96PipswFostoria City HospitalComment on above:Performed By: #### CDP #### [address] [address] Airplane Cover Maker: Francisco J Fonseca MDErythrocyte distribution width (RBC) [Ratio]18.9 %High11.8-14.4[facility] HospitalComment on above:Performed By: #### CDP #### [address] [address] Airplane Cover Maker: Francisco J Fonseca MDHematocrit (Bld) [Volume fraction]37.4 %Low 40.7-50.3MSutter Auburn Faith HospitalComment on above:Performed By: #### CDP #### [address] [address] Airplane Cover Maker: Francisco J Fonseca MDHemoglobin (Bld) [Mass/Vol]12.2 g/dLLow13.0-17.0 [facility] HospitalComment on above:Performed By: #### CDP #### [address] [address] Airplane Cover Maker: MARK BrandonCH (RBC) [Entitic mass]26.9 hzRiublr02.2-33.5 [facility] HospitalComment on above:Performed By: #### CDP #### [address] [address] Airplane Cover Maker: MARK BrandonCHC (RBC) [Mass/Vol]32.6 g/rRWvwerw40.4-34.8 [facility] HospitalComment on above:Performed By: #### CDP #### [address] [place] [address] Airplane Cover Maker: MARK BrandonCV (RBC) [Entitic vol]82.4 fLLow82.6-102.9[facility] HospitalComment on above:Performed By: #### CDP #### [address] [address] Airplane Cover Maker: SONIA Brandon Automated0.0 per 100 WBCNormal0.0[facility] HospitalComment on above:Performed By: #### CDP #### [address] [address] Airplane Cover Maker: Meera Brandon mean volume (Bld) [Entitic vol]12.6 fL Normal8.1-13.5[facility] HospitalComment on above:Performed By: #### CDP #### [address] [address] Airplane Cover Maker: Cade Brandon (Bld) [#/Vol]292 10*3/jRVwwgem316-738 [facility] HospitalComment on above:Performed By: #### CDP #### [address] [address] Airplane Cover Maker: YOLA Brandon (Bld) [#/Vol]4.54 10*6/uLNormal4.21-5.77 [facility] HospitalComment on above:Performed By: #### CDP #### [address] [address] Airplane Cover Maker: PABLO Brandon (Bld) [#/Vol]22.1 10*3/uLHigh3.5-11.3MSutter Auburn Faith HospitalComment on above:Performed By: #### CDP #### [address] [address] Airplane Cover Maker: Francisco J Fonseca MDHemoglobin A1Con 11-61-0476Qktfhrw [Mass/Vol]223 mg/dLNormalFostoria City HospitalComment on above:Result Comment: The ADA and AACC recommend providing the estimated average glucose result to permit better patient understanding of their HBA1c result.Performed By: #### CDP, MELVIN, BMPX, IPF #### [facility] [address] [place] [address] Airplane Cover Maker: Francisco J Fonseca MDHbA1c (Bld) [Mass fraction]9.4 %High4.0-6.0[facility] HospitalComment on above:Performed By: #### CDP, MELVIN, BMPX, IPF #### [facility] [address] [place] [address] Airplane Cover Maker: Francisco J Fonseca MDLaboratory - Chemistry and Chemistry - challenge on 21-05-4399Acvaz gap [Moles/Vol]12 mmol/L9 - 17 mmol/LBON [facility] [employer] [facility] Calcium [Mass/Vol]8.3 mg/dLLow8.6 - 10.4 mg/dLBON SECCovalys BiosciencesChloride [Moles/Vol]102 mmol/L98 - 107 mmol/LBON SECCovalys BiosciencesCO2 [Moles/Vol]21 mmol/L20 - 31 mmol/LBON SECCovalys BiosciencesCreatinine [Mass/Vol]0.88 mg/dL0.70 - 1.20 mg/dLBON SECCovalys BiosciencesGFR/1.73 sq M.predicted MDRD (S/P/Bld) [Vol rate/Area]BON [facility] CENTERCovalys BiosciencesComment on above:Average GFR for 70 or more years old: 75 mL/min/1.73sq m Chronic Kidney Disease: <60 mL/min/1.73sq m Kidney failure: <15 mL/min/1.73sq m eGFR calculated using average adult body mass. Additional eGFR calculator available at: http://www.[employer].Gem/multiple_crcl_2012.htm Glucose [Mass/Vol]74 mg/dL70 - 99 mg/dLBON SECMicroJob HEALTHPhosphate [Mass/Vol]3.3 mg/dL2.5 - 4.5 mg/dLBON MARYMOUNT HOSPITALPotassium [Moles/Vol] 4.2 mmol/L3.7 - 5.3 mmol/LBON [facility] HOSPITALSodium [Moles/Vol]135 mmol/L 135 - 144 mmol/LBON [facility] HOSPITALUrea nitrogen (BldV) [Mass/Vol]29 mg/dL High8 - 23 mg/dLBON [facility] HEALTHGlucose [Mass/Vol]69 mg/dLLow75 - 110 mg/dLBON [facility] HEALTHGlucose [Mass/Vol]93 mg/dL75 - 110 mg/dLBON MARYMOUNT HOSPITALGlucose [Mass/Vol]55 mg/dLLow75 - 110 mg/dLBON [facility] Comment on above:Critical NotedGlucose [Mass/Vol]88 mg/dL75 - 110 mg/dLBON MARYMOUNT HOSPITALAnion gap [Moles/Vol]12 mmol/L9 - 17 mmol/LBON [facility]OSPITALCalcium [Mass/Vol]8.4 mg/dLLow8.6 - 10.4 mg/dLBON [facility] Chloride [Moles/Vol]103 mmol/L98 - 107 mmol/LBON [facility] HOSPITALCO2 [Moles/Vol]21 mmol/L20 - 31 mmol/LBON [facility]OSPITALCreatinine [Mass/Vol] 0.93 mg/dL0.70 - 1.20 mg/dLBON MARYMOUNT HOSPITALGFR/1.73 sq M.predicted MDRD (S/P/Bld) [Vol rate/Area]B[facility] HOSPITALComment on above:Average GFR for 70 or more years old: 75 mL/min/1.73sq m Chronic Kidney Disease: <60 mL/min/1.73sq m Kidney failure: <15 mL/min/1.73sq m eGFR calculated using average adult body mass. Additional eGFR calculator available at: http://www.[employer]/multiple_crcl_2012.htm Glucose [Mass/Vol]155 mg/tVAuud12 - 99 mg/dLBON [facility] HEALTHPhosphate [Mass/Vol]2.9 mg/dL2.5 - 4.5 mg/dLBON [facility] HEALTHPotassium [Moles/Vol] 3.9 mmol/L3.7 - 5.3 mmol/LBON [facility] HEALTHSodium [Moles/Vol]136 mmol/L 135 - 144 mmol/LBON [facility] HEALTHUrea nitrogen (BldV) [Mass/Vol]28 mg/dL High8 - 23 mg/dLBON [facility] HEALTHGlucose [Mass/Vol]152 mg/uPDmgr34 - 110 mg/dLBON [facility] HEALTHGlucose [Mass/Vol]216 mg/kNChji05 - 110 mg/dLBON [facility] HEALTHGlucose [Mass/Vol]242 mg/cNKcok68 - 110 mg/dLBON [facility] HEALTHGlucose [Mass/Vol]243 mg/iYQmfz32 - 110 mg/dLBON [facility] HEALTHAnion gap [Moles/Vol]11 mmol/L9 - 17 mmol/LBON [facility] HEALTHCalcium [Mass/Vol]8.4 mg/dLLow8.6 - 10.4 mg/dLBON [facility] HEALTHChloride [Moles/Vol]103 mmol/L98 - 107 mmol/LBON [facility] HEALTHCO2 [Moles/Vol]24 mmol/L20 - 31 mmol/LBON [facility] HEALTHCreatinine [Mass/Vol]0.92 mg/dL0.70 - 1.20 mg/dLBON [facility] HEALTHGFR/1.73 sq M.predicted MDRD (S/P/Bld) [Vol rate/Area]B[facility]OSPITALComment on above:Average GFR for 70 or more years old: 75 mL/min/1.73sq m Chronic Kidney Disease: <60 mL/min/1.73sq m Kidney failure: <15 mL/min/1.73sq m eGFR calculated using average adult body mass. Additional eGFR calculator available at: http://www.[employer]/multiple_crcl_2012.htm Glucose [Mass/Vol]226 mg/gEGzit16 - 99 mg/dLBON [facility] HEALTHPhosphate [Mass/Vol]3.5 mg/dL2.5 - 4.5 mg/dLBON [facility] HEALTHPotassium [Moles/Vol] 5.0 mmol/L3.7 - 5.3 mmol/LBON [facility] HEALTHSodium [Moles/Vol]138 mmol/L 135 - 144 mmol/LBON [facility] HEALTHUrea nitrogen (BldV) [Mass/Vol]26 mg/dL High8 - 23 mg/dLBON [facility] HEALTHGlucose [Mass/Vol]214 mg/oJDrme20 - 110 mg/dLBON [facility] HEALTHAnion gap [Moles/Vol]13 mmol/L9 - 17 mmol/LBON [facility] HEALTHCalcium [Mass/Vol]8.4 mg/dLLow8.6 - 10.4 mg/dLBON [facility] HEALTHChloride [Moles/Vol]104 mmol/L98 - 107 mmol/LBON [facility] HEALTHCO2 [Moles/Vol]21 mmol/L20 - 31 mmol/LBON [facility] HEALTHCreatinine [Mass/Vol]0.84 mg/dL0.70 - 1.20 mg/dLBON [facility] HEALTHGFR/1.73 sq M.predicted MDRD (S/P/Bld) [Vol rate/Area][facility]OSPITALComment on above:Average GFR for 70 or more years old: 75 mL/min/1.73sq m Chronic Kidney Disease: <60 mL/min/1.73sq m Kidney failure: <15 mL/min/1.73sq m eGFR calculated using average adult body mass. Additional eGFR calculator available at: http://www.[employer].Gem/multiple_crcl_2011.htm Glucose [Mass/Vol]176 mg/vTKusi41 - 99 mg/dLBON [facility] HEALTHPhosphate [Mass/Vol]3.1 mg/dL2.5 - 4.5 mg/dLBON [facility] HEALTHPotassium [Moles/Vol] 4.5 mmol/L3.7 - 5.3 mmol/LBON [facility] HEALTHSodium [Moles/Vol]138 mmol/L 135 - 144 mmol/LBON [facility] HEALTHUrea nitrogen (BldV) [Mass/Vol]21 mg/dL8 - 23 mg/dLBON [facility] HEALTHGlucose [Mass/Vol]126 mg/oSBiyy95 - 110 mg/dL BON SECMULTIC[facility] HEALTHY HEALTHGlucose [Mass/Vol]165 mg/bGRbjq76 - 110 mg/dLBON [facility] HEALTHGlucose [Mass/Vol]142 mg/jSOnxs50 - 110 mg/dLBON SECNORTHSH[facility] HEALTHGlucose [Mass/Vol]89 mg/dL75 - 110 mg/dLBON SECNORTHSH[facility] HEALTHGlucose [Mass/Vol]71 mg/dLLow75 - 110 mg/dLBON SECNORTHSH[facility] HEALTHGlucose [Mass/Vol]82 mg/dL75 - 110 mg/dLBON SECNOR[facility] HEALTHGlucose [Mass/Vol]128 mg/lPWecn83 - 110 mg/dLBON SECMADISON HEALTHAnion gap [Moles/Vol]6 mmol/LLow9 - 17 mmol/L [facility] HOSPITALCalcium [Mass/Vol]8.5 mg/dLLow8.6 - 10.4 mg/dLBON SECNOR[facility] HEALTHChloride [Moles/Vol]105 mmol/L98 - 107 mmol/LBON [facility]OSPITALCO2 [Moles/Vol]25 mmol/L20 - 31 mmol/LBON [facility] Creatinine [Mass/Vol]0.75 mg/dL0.70 - 1.20 mg/dLBON MARYMOUNT HOSPITALGFR/1.73 sq M.predicted MDRD (S/P/Bld) [Vol rate/Area][facility] HOSPITALComment on above:Average GFR for 70 or more years old: 75 mL/min/1.73sq m Chronic Kidney Disease: <60 mL/min/1.73sq m Kidney failure: <15 mL/min/1.73sq m eGFR calculated using average adult body mass. Additional eGFR calculator available at: http://www.[employer].Gem/multiple_crcl_2012.htm Glucose [Mass/Vol]81 mg/dL70 - 99 mg/dLBON [facility] HEALTHPhosphate [Mass/Vol]2.5 mg/dL2.5 - 4.5 mg/dLBON [facility] HOSPITALPotassium [Moles/Vol] 4.6 mmol/L3.7 - 5.3 mmol/LBON SECNOR[facility] HEALTHSodium [Moles/Vol]136 mmol/L 135 - 144 mmol/LBON [facility] HEALTHUrea nitrogen (BldV) [Mass/Vol]18 mg/dL8 - 23 mg/dLBON MARYMOUNT HOSPITALGlucose [Mass/Vol]187 mg/mDSmcw09 - 110 mg/dL [facility]OSPITALLaboratory - Hematology and Cell countson 01-03-2022 Basophils (Bld) [#/Vol]0.00 10*3/uLBON MARYMOUNT HOSPITALBasophils/100 WBC (Bld)0 %0 - 2 %[facility]ARE[facility] HOSPITALEosinophils/100 WBC (Bld)0 %Low1 - 4 %[facility] HOSPITALHematocrit (Bld) [Volume fraction]37.4 %Low40.7 - 50.3 %[facility] HOSPITALHemoglobin (Bld) [Mass/Vol]12.2 g/dLLow13.0 - 17.0 g/dLBON MARYMOUNT HOSPITALImmature granulocytes/100 WBC (Bld)0 %0BON MARYMOUNT HOSPITALLymphocytes/100 WBC (Bld)4 %Low24 - 44 %[facility] SYSTEMH (RBC) [Entitic mass]26.9 pg25.2 - 33.5 pgBON SECOURS HEALTH SYSTEMHC (RBC) [Mass/Vol] 32.6 g/dL28.4 - 34.8 g/dLBON MARY RUTAN HOSPITALV (RBC) [Entitic vol]82.4 fL Low82.6 - 102.9 fLSENTARA CAREPLEX HOSPITALMonocytes/100 WBC (Bld)6 %1 - 7 %[facility]ARE[facility] HOSPITALMorphology Walter (Bld) [Interp]MICROCYTOSIS PRESENTSENTARA CAREPLEX HOSPITALMorphology Walter (Bld) [Interp]ANISOCYTOSIS PRESENTSENTARA CAREPLEX HOSPITALMorphology Walter (Bld) [Interp]1+ ACANTHOCYTESSENTARA CAREPLEX HOSPITAL Platelet distribution width (Bld) [Ratio]18.9 %High11.8 - 14.4 %[facility]ARE[facility] HOSPITALPlatelet mean volume (Bld) [Entitic vol]12.6 fL8.1 [...] of laboratory resultsAbnormalBON [facility] HEALTHB[facility] Interpretation and review of laboratory resultsAbnormalBON [...] MERCY HEALTHAbsolute Lymph #0.88LowBON [facility]CY HEALTHAbsolute Guadalupe #1.33HighBON [facility]ENTERY HEALTHInterpretation and review of laboratory resultsAbnormalBON [facility] HEALTHNRBC Automated0.00.0 per 100 WBCBON SECOURS MERCY HEALTHSegs Lsqmmvnv41.89 HighBON [facility]RS MERCY HEALTHBON [facility] HEALTHGFR >60>60 mL/minBON [facility]CY HEALTHGFR Non->60>60 mL/minBON [facility]CY HEALTHInterpretation and review of laboratory resultsAbnormalBON [facility] HEALTHB[facility] HEALTHInterpretation and review of laboratory resultsAbnormalBON [facility] HEALTHB[facility] HEALTHInterpretation and review of laboratory resultsAbnormalBON [facility] HEALTHBON [facility] MERCY HEALTHGFR >60>60 mL/minBON [facility] MERCY HEALTHGFR Non- >60>60 mL/minBON [facility]CY HEALTHInterpretation and review of laboratory resultsAbnormalBON [facility] HEALTHB[facility] Interpretation and review of laboratory resultsAbnormalBON [facility]ALTH [facility] HEALTHPhosphorus, Inorg.on [id number], Inorg.3.3 mg/dLNormal2.5-4.5[facility] City HospitalComment on above:Performed By: #### CDP, MELVIN, BMPX, IPF #### [employer] [address] [place] [address] Airplane Cover Maker: DENISE Brandonhosphorus, Inorg.2.9 mg/dLNormal2.5-4.5[facility] City HospitalComment on above:Performed By: #### CDP #### [facility] [address] [place], [place] [id number] Airplane Cover Maker: DENISE Brandonhosphorus, Inorg.3.5 mg/dLNormal2.5-4.5[facility] City HospitalComment on above:Performed By: #### CDP, MELVIN, BMPX, IPF #### [facility] [address] [place] [phone] Airplane Cover Maker: Eliane Brandonsphokhari, Inorg.3.1 mg/dLNormal2.5-4.5F[facility] City HospitalComment on above:Performed By: #### CDP, MELVIN, BMPX, IPF #### [facility] [address] [place] [address] Airplane Cover Maker: Eliane Brandonsphostephs, Inorg.2.5 mg/dLNormal2.5-4.5[facility] City HospitalComment on above:Performed By: #### CDP, MELVIN, BMPX, IPF #### [facility] [address] [place], [place] [id number] Airplane Cover Maker: GAGE BrandonR ABDOMEN FOR NG/OG/NE TUBE PLACEMENTon [id number] ABDOMEN FOR NG/OG/NE TUBE PLACEMENTEXAMINATION: ONE SUPINE [...] Signed by: Eulogio Winslow MD 01/02/22 Final resultNormalFostoria City HospitalAMYLASEon [id number] [Catalytic activity/Vol]13 U/LCritically [id number] Health System Marietta Memorial HospitalComment on above:Performed By: #### LIPA, MARGA, LIVER, BMP #### [facility] [address], [place] [address] Dr. Kylee Christiansen Metabolic Profon [id number] [Mass/Vol]452 mg/dL Critically gxeh86-91Jlfyf [facility] Medical CenterComment on above:Performed By: #### CDP #### [facility] [address] [place] [address] Airplane Cover Maker: Francisco J Fonseca MD(cont.)[facility] Comment on above:Result Comment: Average GFR for 70 or more years old: 75 mL/min/1.73sq m Chronic Kidney Disease: <60 mL/min/1.73sq m Kidney failure: <15 mL/min/1.73sq m eGFR calculated using average adult body mass. Additional eGFR calculator available at: http://www.[employer]/multiple_crcl_2012.htmPerformed By: #### CDP #### [facility] [address] [place] [address] Airplane Cover Maker: Francisco J Fonseca MDAnion gap [Moles/Vol]12 mmol/LNormal9-17F[facility] City HospitalComment on above:Performed By: #### CDP #### [facility] [address] [place] [address] Airplane Cover Maker: Francisco J Fonseca MDCalcium [Mass/Vol]8.6 mg/dLNormal8.6-10.4F[facility] City HospitalComment on above:Performed By: #### CDP #### [facility] [address] [place] [address] Airplane Cover Maker: Francisco J Fonseca MDChloride [Moles/Vol]96 mmol/JQpn72-893KsbbmFostoria City HospitalComment on above:Performed By: #### CDP #### [facility] [address] [place] [address] Airplane Cover Maker: Francisco J Fonseca MDCO2 [Moles/Vol]22 mmol/XLovghn14-87SycbdFostoria City HospitalComment on above:Performed By: #### CDP #### [facility] [address] [place] [address] Airplane Cover Maker: MARLENY Brandonreatinine [Mass/Vol]0.81 mg/dLNormal0.70-1.20 [facility] City HospitalComment on above:Performed By: #### CDP #### [address] [address] Airplane Cover Maker: Francisco J Fonseca MDGFR, Amer>60Normal>60MerMartin Luther King Jr. - Harbor HospitalComment on above:Performed By: #### CDP #### [address] [address] Airplane Cover Maker: ARTURO Brandon,non Amer>60Normal>60Fost[facility] City HospitalComment on above:Performed By: #### CDP #### [address] [address] Airplane Cover Maker: DENISE Brandonotassium [Moles/Vol]4.1 mmol/LNormal3.7-5.3 [facility] HospitalComment on above:Performed By: #### CDP #### [address] [address] Airplane Cover Maker: MEIR Brandonodium [Moles/Vol]130 mmol/XXjk450-189AgagwFostoria City HospitalComment on above:Performed By: #### CDP #### [address] [address] Airplane Cover Maker: Francisco J Fonseca MDUrea nitrogen [Mass/Vol]19 mg/dLNormal8-23F[facility] City HospitalComment on above:Performed By: #### CDP #### [address] [address] Airplane Cover Maker: MARLENY BrandonBC AUTO DIFFon [id number] #0.0 103/ulNormal 0.0-0.1[facility] HospitalComment on above:Performed By: #### CMP, LIPID #### [facility] [address] [place] [address] Dr. Kylee BunchBasophils/100 WBC (Bld)0.2 %Normal0.2-2.0The [facility] Comment on above:Performed By: #### CMP, LIPID #### [facility] [address] [place] [address] Dr. Kylee Del Castillo #0.1 103/ulNormal0.0-0.7The [facility] SystemComment on above: Performed By: #### CMP, LIPID #### [facility] [address] [place] [address] Dr. Kylee Steinbergosinophils/100 WBC (Bld)0.5 %Critically low0.9-7.0The [facility] SystemComment on above:Performed By: #### CMP, LIPID #### [facility] [address] [place] [address] Dr. Kylee Steinbergrythrocyte distribution width (RBC) [Ratio]18.5 %Critically high 11.0-15.0The [facility] SystemComment on above:Performed By: #### CMP, LIPID #### [facility] [address] [place] [address] Dr. Kylee BunchHematocrit (Bld) [Volume fraction]37.0 %Critically low42.0-54.0 The [facility] SystemComment on above:Performed By: #### CMP, LIPID #### [facility] [address] [place] [address] Dr. Kylee BunchHemoglobin (Bld) [Mass/Vol]12.6 g/dLCritically low14.0-18.0The [facility] SystemComment on above:Performed By: #### CMP, LIPID #### [facility] [address] [place] [address] Dr. Kylee Mckoy #0.02 10e3/ulNormal0.00-0.03The [facility] SystemComment on above:Performed By: #### CMP, LIPID #### [facility] [address] [place] [address] Dr. Kylee Mckoy %0.2 %Normal0.0-0.5The [facility] SystemComment on above: Performed By: #### CMP, LIPID #### [facility] [address] [place] [address] Dr. Kylee Jones #1.2 103/ulNormal1.2-3.8The [facility] SystemComment on above:Performed By: #### CMP, LIPID #### [facility] [address] [place] [address] Dr. Kylee Casashocytes/100 WBC (Bld)11.3 %Critically low20.5-60.0The [facility] SystemComment on above:Performed By: #### CMP, LIPID #### [facility] [address] [place] [address] Dr. Kylee BauerUAL DIFF REQNONormalThe [facility] SystemComment on above: Performed By: #### CMP, LIPID #### [facility] [address] [place] [address] Dr. Kylee Beasley (RBC) [Entitic mass]27.1 odLmstjk08.9-34.0The [facility] SystemComment on above:Performed By: #### CMP, LIPID #### [facility] [address] [place] [address] Dr. Kylee Beasley (RBC) [Mass/Vol]34.1 g/pDObqjbi43.9-35.2The [facility] SystemComment on above:Performed By: #### CMP, LIPID #### [facility] [address] [place] [address] Dr. Kylee Beasley (RBC) [Entitic vol]79.6 fLCritically low80.0-94.0The [facility] SystemComment on above:Performed By: #### CMP, LIPID #### [facility] [address] [place] [address] Dr. Kylee Abarca #0.5 103/ulNormal0.3-0.8The [facility]ifle HospitalComment on above:Performed By: #### CMP, LIPID #### [facility] [address] [address] [address] Kylee Mirelesocytes/100 WBC (Bld)4.5 %Normal1.7-12.0The [facility] Comment on above:Performed By: #### CMP, LIPID #### [facility] [address] [place] [address] Dr. Kylee Shook #8.5 103/ulCritically high1.4-6.5The [facility] Comment on above:Performed By: #### CMP, LIPID #### [facility] [address] [place] [address] Dr. Kylee Martinutrophils/100 WBC (Bld)83.3 %Critically high43.0-75.0The [facility] SystemComment on above:Performed By: #### CMP, LIPID #### [facility] [address] [place] [address] Dr. Kylee BunchPlatelet mean volume (Bld) [Entitic vol]12.6 fLNormal9.5-13.5The [facility] SystemComment on above:Performed By: #### CMP, LIPID #### [facility] [address] [place] [address] Dr. Kylee BunchPLT335 103/jdEgmqgt820-389Nim [facility] SystemComment on above: Performed By: #### CMP, LIPID #### [facility] [address] [place] [address] Dr. Kylee BunchRBC4.65 106/ulCritically low4.70-6.10The [facility] SystemComment on above:Performed By: #### CMP, LIPID #### [facility] [address] [place] [address] Dr. Kylee BunchWBC10.2 103/ulNormal4.0-11.0The [facility] SystemComment on above:Performed By: #### CMP, LIPID #### [facility] [address] [place] [address] Dr. Kylee Locke with Diffon [id number]. Basophil0.00 k/uLNormal0.00-0.20 [facility] City HospitalComment on above:Performed By: #### CDP, MELVIN, BMPX, IPF #### [place] [address] Airplane Cover Maker: MDAbs. RomaImm.Granulocyte0.00 k/uLNormal0.00-0.30F[facility] City HospitalComment on above:Performed By: #### CDP, MELVIN, BMPX, IPF #### [place] [address] Airplane Cover Maker: Vidhya Brandon.Neutrophil (Seg)19.47 k/uLHigh1.50-8.10[facility] City HospitalComment on above:Performed By: #### CDP, MELVIN, BMPX, IPF #### [place] [address] Airplane Cover Maker: Francisco J Fonseca MDBasophils/100 WBC (Bld)0 %Normal0-2MSutter Auburn Faith HospitalComment on above:Performed By: #### CDP, MELVIN, BMPX, IPF #### [place] [address] Airplane Cover Maker: Francisco J Fonseca MDEosinophils (Bld) [#/Vol]0.00 10*3/uLNormal 0.00-0.44[facility] HospitalComment on above:Performed By: #### CDP, MELVIN, BMPX, IPF #### [address] [address] Airplane Cover Maker: Francisco J Fonseca MDEosinophils/100 WBC (Bld)0 %Low1-4F[facility] City HospitalComment on above:Performed By: #### CDP, MELVIN, BMPX, IPF #### [address] [address] Airplane Cover Maker: Mark Brandonture granulocytes/100 WBC (Bld)0 %Normal0 [facility] HospitalComment on above:Performed By: #### CDP, MELVIN, BMPX, IPF #### [facility] [address] [place] [address] Airplane Cover Maker: Francisco J Fonseca MDLymphocytes (Bld) [#/Vol]0.41 10*3/uLLow 1.10-3.70[facility] HospitalComment on above:Performed By: #### CDP, MELVIN, BMPX, IPF #### [facility] [address] [place] [address] Airplane Cover Maker: Jeremie Brandonmphocytes/100 WBC (Bld)2 %Vqx28-54GyucuFostoria City HospitalComment on above:Performed By: #### CDP, MELVIN, BMPX, IPF #### [address] [address] Airplane Cover Maker: MARK Brandononocytes (Bld) [#/Vol]0.62 10*3/uLNormal 0.10-1.20[facility] HospitalComment on above:Performed By: #### CDP, MELVIN, BMPX, IPF #### [facility] [address] [place] [address] Airplane Cover Maker: MARK Brandononocytes/100 WBC (Bld)3 %Normal3-12[facility] City HospitalComment on above:Performed By: #### CDP, MELVIN, BMPX, IPF #### [facility] [address] [place] [address] Airplane Cover Maker: MARK Brandonorphology Walter (Bld) [Interp]ANISOCYTOSIS PRESENTNormalFostoria City HospitalComment on above:Performed By: #### CDP, MELVIN, BMPX, IPF #### [facility] [address] [place] [address] Airplane Cover Maker: Francisco J Madoff, MDNeutrophil (Seg)95 %Noyp38-79QxcfiFostoria City HospitalComment on above:Performed By: #### CDP, MELVIN, BMPX, IPF #### [facility] [address] [place] [address] Airplane Cover Maker: Francisco J Fonseca MDErythrocyte distribution width (RBC) [Ratio]18.3 %High11.8-14.4[facility] City HospitalComment on above:Performed By: #### CDP, MELVIN, BMPX, IPF #### [facility] [address] [place] [address] Airplane Cover Maker: Francisco J Fonseca MDHematocrit (Bld) [Volume fraction]38.9 %Low 40.7-50.3MSutter Auburn Faith HospitalComment on above:Performed By: #### CDP, MELVIN, BMPX, IPF #### [facility] [address] [place] [address] Airplane Cover Maker: Francisco J Fonseca MDHemoglobin (Bld) [Mass/Vol]12.9 g/dLLow13.0-17.0 [facility] HospitalComment on above:Performed By: #### CDP, MELVIN, BMPX, IPF #### [facility] [address] [place] [address] Airplane Cover Maker: MARK BrandonCH (RBC) [Entitic mass]26.9 xmXxbxla71.2-33.5 [facility] HospitalComment on above:Performed By: #### CDP, MELVIN, BMPX, IPF #### [facility] [address] [place] [address] Airplane Cover Maker: MARK BrandonCHC (RBC) [Mass/Vol]33.2 g/rDGmhobi11.4-34.8 [facility] HospitalComment on above:Performed By: #### CDP, MELVIN, BMPX, IPF #### [facility] [address] [place] [address] Airplane Cover Maker: MARK BrandonCV (RBC) [Entitic vol]81.2 fLLow82.6-102.9[facility] City HospitalComment on above:Performed By: #### CDP, MELVIN, BMPX, IPF #### [address] [address] Airplane Cover Maker: SONIA Brandon Automated0.0 per 100 WBCNormal0.0F[facility] City HospitalComment on above:Performed By: #### CDP, MELVIN, BMPX, IPF #### [address] [address] Airplane Cover Maker: Meera Brandon mean volume (Bld) [Entitic vol]12.4 fL Normal8.1-13.5F[facility] City HospitalComment on above:Performed By: #### CDP, MELVIN, BMPX, IPF #### [facility] [address] [place] [address] Airplane Cover Maker: Cade Brandon (Bld) [#/Vol]324 10*3/rUBkclmk215-284 [facility] HospitalComment on above:Performed By: #### CDP, MELVIN, BMPX, IPF #### [facility] [address] [place] [address] Airplane Cover Maker: YOLA Brandon (Bld) [#/Vol]4.79 10*6/uLNormal4.21-5.77 [facility] HospitalComment on above:Performed By: #### CDP, MELVIN, BMPX, IPF #### [facility] [address] [place] [address] Airplane Cover Maker: PABLO Brandon (Bld) [#/Vol]20.5 10*3/uLHigh3.5-11.3MSutter Auburn Faith HospitalComment on above:Performed By: #### CDP, MELVIN, BMPX, IPF #### [employer] [address] [place] [address] Airplane Cover Maker: Francisco J Fonseca, MDCT ABD/PELV W CONon [id number] ABD/PELV W CON EXAMINATION: CT ABD/PELV W [...] identified. Background diffuse body wall edema with ohmst-[id number]-qcuzubcr volume of abdominal and pelvic ascites noted. [...] 9:09 AM on 01/02/2022. Electronically authenticated by: [employer] Date: 2022-01-02 09:27[facility] HospitalCovid-19 PCR (CVDTB)on [id number]-CoV-2 (COVID-19) RNA ANASTASIA+probe Ql (Unsp spec)Not detectedNormalNOT DETECTEDThe [facility] Comment on above:Result Comment: When diagnostic testing [...] for this test is supported by the [place] of Health and Human Service's declaration that [...] longer be used).Performed By: #### CVDTBH #### [facility] [address] [place] [address] Dr. Kylee Forbes URINE PROFILEon 80-01-0750Sqfdhjafo Ql (U)NegativeNormal NEGATIVEMemorial Health System Marietta Memorial HospitalComment on above:Performed By: #### CMP, LIPID #### [facility] [address] [place] [address] Dr. Kylee Bricenoarity (U)CLEARNormalCLEARMemorial Health System Marietta Memorial HospitalComment on above: Performed By: #### CMP, LIPID #### [facility] [address] [place] [address] Dr. Kylee De La Garza (U)LT. YELLOWNormalYELLOWMemorial Health System Marietta Memorial HospitalComment on above:Performed By: #### CMP, LIPID #### [facility] [address] [place] [address] Dr. Kylee Moe micrscopic examination will be performed if indicated. NormalMemorial Health System Marietta Memorial HospitalComment on above:Performed By: #### CMP, LIPID #### [facility] [address] [place] [address] Dr. Kylee BunchHemoglobin Ql (U)TRACE-INTACTAbnormalNEGATIVEMemorial Health System Marietta Memorial HospitalComment on above:Performed By: #### CMP, LIPID #### [facility] [address] [place] [address] Dr. Kylee BunchKetones Ql (U)15 mg/dlAbnormalNEGATIVEThe [facility] Comment on above:Performed By: #### CMP, LIPID #### [facility] [address] [address] [address] Kylee BunchLEUKOCYTESNegativeNormalNEGATIVEThe [facility] SystemComment on above:Performed By: #### CMP, LIPID #### [facility] [address] [address] [address] Kylee Royaltrite Ql (U)NegativeNormalNEGATIVEThe [facility] SystemComment on above:Performed By: #### CMP, LIPID #### [facility] [address] [address] [address] Kylee BunchpH (U)5.5 [pH]Normal5-9The [facility] SystemComment on above: Performed By: #### CMP, LIPID #### [facility] [address] [place] [address] Dr. Kylee BunchSPEC GRAVITY1.547Yecqdl1.005-<=1.025The [facility] SystemComment on above:Performed By: #### CMP, LIPID #### [facility] [address] [place] [address] Dr. Kylee Rodas PROTEINNegativeNormalNEGATIVE/ TRACEThe [facility] Comment on above:Performed By: #### CMP, LIPID #### [facility] [address] [place] [address] Dr. Kylee Mae MICRO INDINDICATEDNormalThe [facility] SystemComment on above: Performed By: #### CMP, LIPID #### [facility] [address] [place] [address] Dr. Kylee Correiabilinogen Qn (U)0.2 {Gemini'U}/dLNormal0.2 - 1.0The [facility] SystemComment on above:Performed By: #### CMP, LIPID #### [facility] [address] [place] [address] Dr. Kylee JhaASEon 12-46-8810Igxegh [Catalytic activity/Vol]9.0 U/L Critically low73.0-393.0The [facility] SystemComment on above:Performed By: #### LIPA, MARGA, LIVER, BMP #### [facility] [address] [place] [address] Dr. Kylee Narayan PROFILEon 16-50-8521Cjiutys [Mass/Vol]3.3 g/dLCritically low3.4-5.0The [facility] SystemComment on above:Performed By: #### LIPA, MARGA, LIVER, BMP #### [facility] [address] [place] [address] Dr. Kylee BunchAlbumin/Globulin [Mass ratio]0.9 {ratio}NormalThe [facility] SystemComment on above:Performed By: #### LIPA, MARGA, LIVER, BMP #### [facility] [address] [place] [address] Dr. Kylee Forman [Catalytic activity/Vol]116 U/ZHeeotg51-254Tkm [facility] SystemComment on above:Performed By: #### LIPA, MARGA, LIVER, BMP #### [facility] [address] [place] [address] Dr. Kylee Shelton [Catalytic activity/Vol]21 U/FHzuqyc62-86Fjk [facility] SystemComment on above:Performed By: #### LIPA, MARGA, LIVER, BMP #### [facility] [address] [place] [address] Dr. Kylee Mccormack [Catalytic activity/Vol]24 U/AFcyrvj24-41Gqd [facility] on above:Performed By: #### LIPA, MARGA, LIVER, BMP #### [facility] [address] [place] [address] Dr. Kylee Calhoun, CONJUGATED0.1 mg/dLNormal0.0-0.2The [facility] Comment on above:Performed By: #### LIPA, MARGA, LIVER, BMP #### [facility] [address] [place] [address] Dr. Kylee Santoirubin [Mass/Vol]0.6 mg/dLNormal0.2-1.0The [facility] Comment on above:Performed By: #### LIPA, MARGA, LIVER, BMP #### [facility] [address], [place] [address] Dr. Kylee BunchGlobulin (S) [Mass/Vol]3.6 g/dLNormalThe [facility] SystemComment on above:Performed By: #### LIPA, MARGA, LIVER, BMP #### [facility] [address], [place] [address] Dr. Kylee BunchProtein [Mass/Vol]6.9 g/dLNormal6.4-8.2The [facility] Comment on above:Performed By: #### LIPA, MARGA, LIVER, BMP #### [facility] [address], [place] [address] Dr. Kylee BunchLaboratory - Chemistry and Chemistry - challengeon 01-02-2022 Glucose [Mass/Vol]223 mg/dLBON MARYMOUNT HOSPITALComment on above:The ADA and AACC recommend providing the estimated average glucose result to permit better patient understanding of their HBA1c result. Glucose [Mass/Vol]227 mg/rSZnxy81 - 110 mg/dLBON [facility] HEALTHGlucose [Mass/Vol]290 mg/sWJgbe46 - 110 mg/dLBON [facility] HEALTHGlucose [Mass/Vol] 300 mg/xWXumu38 - 110 mg/dLBON [facility] HEALTHGlucose [Mass/Vol]323 mg/dL High75 - 110 mg/dLBON SECMADISON HEALTHAnion gap [Moles/Vol]12 mmol/L9 - 17 mmol/LBON SECNOR[facility]SH[facility] HEALTHCalcium [Mass/Vol]8.6 mg/dL8.6 - 10.4 mg/dLBON SECNORTHSHORE [facility]ITAL HEALTHChloride [Moles/Vol]96 mmol/LLow98 - 107 mmol/LBON [facility] HEALTHCO2 [Moles/Vol]22 mmol/L20 - 31 mmol/LBON M[facility]MOUNT HOSPITAL Creatinine [Mass/Vol]0.81 mg/dL0.70 - 1.20 mg/dLBON SECMULTICARE HEALTHY HEALTHGFR/1.73 sq M.predicted MDRD (S/P/Bld) [Vol rate/Area]B[facility]MOUNT HOSPITALComment on above:Average GFR for 70 or more years old: 75 mL/min/1.73sq m Chronic Kidney Disease: <60 mL/min/1.73sq m Kidney failure: <15 mL/min/1.73sq m eGFR calculated using average adult body mass. Additional eGFR calculator available at: http://www.[employer]/multiple_crcl_2012.htm Glucose [Mass/Vol]452 mg/dLCritically high70 - 99 mg/dLBON MARYMOUNT HOSPITAL Potassium [Moles/Vol]4.1 mmol/L3.7 - 5.3 mmol/LBON MARYMOUNT HOSPITALSodium [Moles/Vol]130 mmol/GGxz085 - 144 mmol/LBON MARYMOUNT HOSPITALUrea nitrogen (BldV) [Mass/Vol]19 mg/dL8 - 23 mg/dLBON MARYMOUNT HOSPITALAlbumin [Mass/Vol] 3.6 g/dL3.5 - 5.2 g/dLBON MARYMOUNT HOSPITALAlbumin/Globulin [Mass ratio]1.3 {ratio}BON MARYMOUNT HOSPITALALP (Bld) [Catalytic activity/Vol]100 U/L40 - 129 U/LBON MARYMOUNT HOSPITALALT [Catalytic activity/Vol]15 U/L5 - 41 U/LBON MARYMOUNT HOSPITALAST [Catalytic activity/Vol]18 U/L<40BON MARYMOUNT HOSPITALBilirubin [Mass/Vol]0.45 mg/dL0.3 - 1.2 mg/dLBON MARYMOUNT [facility] Bilirubin.indirect [Mass/Vol]0.17 mg/dL<0.31B[facility] MARYMOUNT HOSPITALFree PSA/Total PSA [Mass fraction]6.4 g/dL6.4 - 8.3 g/dLBON MARYMOUNT [facility]OSPITAL Glucose [Mass/Vol]433 mg/dLCritically high75 - 110 mg/dLBON MARYMOUNT [facility]OS[facility] Comment on above:Critical NotedLaboratory - Coagulationon 76-24-5655VNY Coag (Bld) [Relative time]1.2 {INR}[facility]AREPLEX HOSPITALComment on above: Therapeutic Range: Moderate Anticoagulant Intensity: INR = 2.0-3.0 High Anticoagulant Intensity: INR = 2.5-3.5 PT Coag (PPP) [Time]12.5 sHighBON MARYMOUNT HOSPITALLaboratory - Hematology and Cell countson 40-30-8656FzI7s (Bld) [Mass fraction]9.4 %High4.0 - 6.0 %BON [facility]NOR[facility] HEALTHBasophils (Bld) [#/Vol]0.00 10*3/uLBON [facility] Basophils/100 WBC (Bld)0 %0 - 2 %BON SECMADISON HEALTHEosinophils/100 WBC (Bld)0 %Low1 - 4 %B[facility] SECMADISON HEALTHHematocrit (Bld) [Volume fraction]38.9 %Low40.7 - 50.3 %B[facility] M[facility]MOUNT HOSPITALHemoglobin (Bld) [Mass/Vol]12.9 g/dLLow 13.0 - 17.0 g/dLBON SECMADISON HEALTHImmature granulocytes/100 WBC (Bld)0 %[address] [address] MEDICAL CENTERLymphocytes/100 WBC (Bld)2 %Low24 - 43 %[facility] HEALTH SYSTEMH (RBC) [Entitic mass]26.9 pg25.2 - 33.5 pgBON SECST. MARY'S MEDICAL CENTER, [facility]ONTON CAMPUSHC (RBC) [Mass/Vol]33.2 g/dL28.4 - 34.8 g/dLBON SECST. MARY'S MEDICAL CENTER, IRONTON CAMPUSV (RBC) [Entitic vol]81.2 fLLow82.6 - 102.9 fLSENTARA CAREPLEX HOSPITAL Monocytes/100 WBC (Bld)3 %3 - 12 %B[facility] MARYMOUNT HOSPITALMorphology Walter (Bld) [Interp]ANISOCYTOSIS PRESENTBON SECNORTHSHORE [facility]CH[facility]OS[facility]ITAL HEALTHPlatelet distribution width (Bld) [Ratio]18.3 %High11.8 - 14.4 %[facility]NOR[facility]OS[facility]ITAL HEALTHPlatelet mean volume (Bld) [Entitic vol]12.4 fL8.1 - 13.5 fLBON SECNORTHSHORE PSYCHI[facility]IC [facility]OSPITAL HEALTHPlatelets (Bld) [#/Vol]324 10*3/uLBON [facility] HEALTHRBC (Bld) [#/Vol]4.79 10*6/uL4.21 - 5.77 m/uLBON SECMADISON HEALTHSegmented neutrophils/100 WBC (Bld)95 %High36 - 65 %B[facility] SECMADISON HEALTHWBC (Bld) [#/Vol]20.5 10*3/uLHighBON SECOURS MER[facility] HEALTH ST[facility] RITA'S MEDICAL CENTERLactate, Sepsison 91-50-2876Upfypc Acid,Sep Wbld1.7 mmol/LNormal0.5-1.9 [facility] HospitalComment on above:Performed By: #### CDP, MELVIN, BMPX, IPF #### [facility] [place] [address] Airplane Cover Maker: Beatrice Brandon Profileon 74-21-7813Vzcvvca [Mass/Vol]3.6 g/dLNormal3.5-5.2MSutter Auburn Faith HospitalComment on above:Performed By: #### CDP #### [address] [address] Airplane Cover Maker: Francisco J Fonseca MDAlbumin/Glob Ratio1.8Ecwtsn5.0-2.5[facility] City HospitalComment on above:Performed By: #### CDP #### [facility] [employer] [address] [place] [address] Airplane Cover Maker: Angie Brandon Ikgt065 U/QHrdytt10-847FyzwzFostoria City HospitalComment on above:Performed By: #### CDP #### [facility] [address] [place] [address] Airplane Cover Maker: Francisco J Fonseca MDALT [Catalytic activity/Vol]15 U/LNormal5-41 [facility] HospitalComment on above:Performed By: #### CDP #### [facility] [address] [place] [address] Airplane Cover Maker: Francisco J Fonseca MDAST [Catalytic activity/Vol]18 U/LNormal<40F[facility] City HospitalComment on above:Performed By: #### CDP #### [facility] [address] [place] [address] Airplane Cover Maker: Francisco J Fonseca MDBilirubin [Mass/Vol]0.45 mg/dLNormal0.3-1.2Mthe jewish hospitaly [facility] Delta Medical CenterComment on above:Performed By: #### CDP #### [facility] [address] [place] [address] Airplane Cover Maker: Francisco J Fonseca MDBilirubin, Indirect0.28 mg/dLNormal0.00-1.00 [facility] HospitalComment on above:Performed By: #### CDP #### [facility] [address] [place] [address] Airplane Cover Maker: Krishna Brandonirubin.indirect [Mass/Vol]0.17 mg/dLNormal <0.31[facility] HospitalComment on above:Performed By: #### CDP #### [address] [address] Airplane Cover Maker: Francisco J Fonseca MDProtein [Mass/Vol]6.4 g/dLNormal6.4-8.3MSutter Auburn Faith HospitalComment on above:Performed By: #### CDP #### [address] [address] Airplane Cover Maker: Francisco J Fonseca MDNo Panel Informationon 03-17-7837Tongxgiuxgtgka and review of laboratory resultsAbnormalSENTARA VIRGINIA BEACH GENERAL HOSPITALInterpretation and review of laboratory resultsAbnormalSENTARA VIRGINIA BEACH GENERAL HOSPITALEnteric tube needs to be advanced 10 cm. [facility] RIS CONSOLIDATEDEXAMINATION: ONE SUPINE [...] tube needs to be advanced 10 cm. [employer] Work Phone: Interpretation and review of laboratory results AbnormalBON [facility]ION[facility] HEALTH SERVICESInterpretation and review of laboratory resultsAbnormalSENTARA VIRGINIA BEACH GENERAL HOSPITALRadiology Study observation (narrative)[employer] Work Phone: absolute Eos #0.00[facility] MEDICAL CENTERAbsolute Immature Granulocyte0.00[facility] HEALTHAbsolute Lymph #0.41LowBON [facility]RS [facility] HEALTHAbsolute Guadalupe #0.62BON SECChinaNetCloud [facility] HEALTHInterpretation and review of laboratory resultsAbnormBuchanan General HospitalNRBC Automated 0.00.0 per 100 WBCBON [facility] Foundationgs Bzpzxjdb78.47HighBON SECSANFORD MEDICAL CENTER FARGO HEALTHInterpretation and review of laboratory resultsAbnormalBON [facility] HEALTHInterpretation and review of laboratory resultsAbnormalSENTARA VIRGINIA BEACH GENERAL HOSPITALLactic Acid, Sepsis, Whole Blood1.7 mmol/L0.5 - 1.9 mmol/LBON SECSANFORD MEDICAL CENTER FARGO HEALTHGFR >60>60 mL/minCARILION ROANOKE COMMUNITY HOSPITAL HEALTHGFR Non->60>60 mL/minFAIRLAWN REHABILITATION HOSPITALChinaNetCloud [facility] HEALTHInterpretation and review of laboratory resultsAbnormalBON [facility] SECNORTHSH[facility] HEALTHBilirubin, Indirect0.28 mg/dL0.00 - 1.00 mg/dLBON [facility] HEALTH SERVICESInterpretation and review of laboratory resultsAbnormalBON [facility] HEALTH SERVICESNo Panel InformationOrdered By: Eulogio Winslow on 24-36-8614LXO [facility] Work Phone: POINT OF CARE GLUCOSEon 27-53-6253Lrldbrl [Mass/Vol] 408 mg/dLCritically rtpq12-091Eee [facility] SystemComment on above:Performed By: #### POCGLUC #### [facility] [address] [place] [address] Dr. Kylee BunchPROF CHEM 8 (BAS METB)on 15-17-0197Oawzy gap [Moles/Vol]16.4 mmol/LNormalThe [facility] SystemComment on above:Performed By: #### LIPA, MARGA, LIVER, BMP #### [facility] [address] [address] [address] Kylee BunchCalcium [Mass/Vol]8.8 mg/dLNormal8.5-10.1[facility] Comment on above:Performed By: #### LIPA, MARGA, LIVER, BMP #### [facility] [address] [address] [address] Kylee BunchChloride [Moles/Vol]96 mmol/LCritically avg78-716Ewk [facility] SystemComment on above:Performed By: #### LIPA, MARGA, LIVER, BMP #### [facility] [address] [address] [address] Kylee BunchCO2 [Moles/Vol]25.1 mmol/CPukkpm28.0-32.0[facility] Comment on above:Performed By: #### LIPA, MARGA, LIVER, BMP #### [facility] [address] [place] [address] Dr. Kylee BunchCreatinine [Mass/Vol]1.22 mg/dLNormal0.70-1.30The [facility] SystemComment on above:Performed By: #### LIPA, MARGA, LIVER, BMP #### [facility] [address] [address] [address] Pichardo ChangEGFR-AF JAMAICAN>60Normal>=60The [facility] SystemComment on above:Performed By: #### LIPA, MARGA, LIVER, BMP #### [facility] [address] [address] [address] Kylee SteinbergGFR-NON AF ABRIRRZO77 mL/min/1.35o1Tpsbzuqfye low>=60The [facility] SystemComment on above:Performed By: #### LIPA, MARGA, LIVER, BMP #### [facility] [address] [address] [address] Kylee BunchGlucose [Mass/Vol]579 mg/dLCritically zcqf94-607Det [facility] SystemComment on above:Result Comment: repeatedPerformed By: #### LIPA, MARGA, LIVER, BMP #### [facility] [address] [place] [address] Dr. Kylee BunchPotassium [Moles/Vol]4.5 mmol/LNormal3.5-5.1The [facility] Comment on above:Performed By: #### LIPA, MARGA, LIVER, BMP #### [facility] [address] [address] [address] Kylee BunchSodium [Moles/Vol]133 mmol/LCritically qkm082-772Nxs [facility] SystemComment on above:Performed By: #### LIPA, MARGA, LIVER, BMP #### [facility] [address] [address] [address] Kylee BunchUrea nitrogen [Mass/Vol]19.0 mg/dLCritically high7.0-18.0The [facility] SystemComment on above:Performed By: #### LIPA, MARGA, LIVER, BMP #### [facility] [address] [place] [address] Dr. Kylee Saenz nitrogen/Creatinine [Mass ratio]15.6 mg/mgNormalThe [facility] SystemComment on above:Performed By: #### LIPA, MARGA, LIVER, BMP #### [facility] [address] [place] [address] Dr. Kylee Hernández 00-56-9589OHI Coag (PPP) [Relative time]1.2 {INR}NormalMercy Kaweah Delta Medical CenterComment on above:Result Comment: Therapeutic Range: Moderate Anticoagulant Intensity: INR = 2.0-3.0 High Anticoagulant Intensity: INR = 2.5-3.5Performed By: #### CDP, MELVIN, BMPX, IPF #### [facility] [address] [place] [phone] Airplane Cover Maker: SABINA Brandon Coag (PPP) [Time]12.5 sHigh9.1-12.3Mer[facility] Delta Medical CenterComment on above:Performed By: #### CDP, MELVIN, BMPX, IPF #### [facility] [address] [place] [address] [phone] Airplane Cover Maker: ANNALISE Brandon MICROSCOPIC ONLYon 32-26-3854HURULTEQUDTA SEENNormalNONE SEENMemorial Health System Marietta Memorial HospitalComment on above:Performed By: #### CMP, LIPID #### [facility] [address] [place] [address] Dr. Kylee Devlin identified Cx Nom (U)NOT INDICATEDNoOur Lady of Mercy HospitalComstraith hospital for special surgery on above:Performed By: #### CMP, LIPID #### [facility] [address] [place] [address] Dr. Kylee Perry SEENNormalNONE SEENMemorial Health System Marietta Memorial HospitalComment on above:Performed By: #### CMP, LIPID #### [facility] [address] [address] [address] Kylee Montaño LM Nom (Urine sed)NONE SEENNormalNONE SEENMemorial Health System Marietta Memorial HospitalComstraith hospital for special surgery on above:Performed By: #### CMP, LIPID #### [facility] [address] [place] [address] Dr. Kylee Villarrealthelial cells LM Ql (Urine sed)RARENormalNONE SEEN /RAREMemorial Health System Marietta Memorial HospitalComment on above:Performed By: #### CMP, LIPID #### [facility] [address] [address] [address] Kylee BunchMUCOUSNONOdalys SEENNormalNONE SEENMemorial Health System Marietta Memorial HospitalComment on above:Performed By: #### CMP, LIPID #### [facility] [address] [address] [address] Kylee BunchKjarsPBS0-0Xkvywk4-0Zwh [facility] SystemComment on above:Performed By: #### CMP, LIPID #### [facility] [address] [address] [address] Kylee BunchWBCNONE SEENNormalNONE SEENThe [facility] SystemComment on above: Performed By: #### CMP, LIPID #### [facility] [address] [address] [address] Kylee Bunch Vital Signs Date TimeVital SignValuePerforming ReprcleykAbybnerd63-53-0805 10:42-0400Body yiljwg625.34 cmRobert Vaschak DO Work Phone: [facility]10-29-2025 10:24-0400 Body mass index (BMI) [Ratio]18.9 kg/n4Nzjtqv Vaschak DO Work Phone: [facility]10-29-2025 10:24-0400 Body szxpie50.68 kgRobert Vaschak DO Work Phone: [facility]10-29-2025 10:24-0400 Diastolic blood qrnwkmeu69 mm[Hg]Marie Vaschak DO Work Phone: [facility]10-29-2025 10:24-0400 Respiratory rate18 /minRobert Vaschak DO Work Phone: [facility]10-29-2025 10:24-0400 Systolic blood mm[Hg]Marie Vaschak DO Work Phone: [facility]10-22-2025 09:45-0400 Body mass index (BMI) [Ratio]20.09 kg/m2Amy Warchol PASSENGER BRAKEMAN Work Phone: [facility] HospitalQjafrlnuic32-28-4006 09:45-0400Body bdegsk08.5 kg Marga Robledo PASSENGER BRAKEMAN Work Phone: [facility] HospitalVgwootryfq72-20-8603 09:45-0400Diastolic blood jqnafshm08 mm[Hg]Marga Robledo PASSENGER BRAKEMAN Work Phone: [facility] HospitalUgrzxhcniv04-01-8939 09:45-0400Heart rate61 /min Marga Davischol PASSENGER BRAKEMAN Work Phone: [facility] HospitalPrzxylvulm73-19-9995 09:45-4710OqJ4% (BldA) [Mass fraction]96 %Marga Robledo PASSENGER BRAKEMAN Work Phone: [facility] HospitalMluwydypqn02-58-8983 09:45-0400Systolic blood ifmtlsyi985 mm[Hg]Marga Robledo PASSENGER BRAKEMAN Work Phone: [facility] HospitalTepyjpzzpy85-87-8226 10:08-0400Body thgset883.8 cmRobert Vaschak DO Work Phone: [phone] [place], [place] [address]609-16-2025 10:08-0400 Body mass index (BMI) [Ratio]19.5 kg/n2Znbhsv Vaschak DO Work Phone: [phone] [place], [place] [address]609-16-2025 10:08-0400 Body asbhzz51.68 kgRobert Vaschak DO Work Phone: [address] [place], [place] 6287709-16-2025 10:08-0400 Diastolic blood mm[Hg]Marie Vaschak DO Work Phone: [phone] [place], [place] [address]609-16-2025 10:08-0400 Heart rate80 /minRobert Vaschak DO Work Phone: [facility]09-16-2025 10:08-0400 Respiratory rate18 /minRobert Vaschak DO Work Phone: [phone]09-16-2025 10:08-0400 SaO2% (BldA) [Mass fraction]98 %Marie Vaschak DO Work Phone: [phone]09-16-2025 10:08-0400 Systolic blood lmwhvtyx002 mm[Hg]Marie Tejeda DO Work Phone: [facility]06-24-2025 11:38-0400 Body ewvpqu331.8 cmRoberleeann Tejeda DO Work Phone: [address] [place], [place] [address]Qtttexplcq60-81-1764 11:38-0400Body mass index (BMI) [Ratio]19.8 kg/t1Uiubhfmarsha Tejeda DO Work Phone: [address] [place], [place] [address]Pmkopvbbrb37-64-0047 11:38-0400Body .6 kg Marie Tejeda DO Work Phone: [address] [place], [place] [address]Msegyohcvq41-27-6613 11:38-0400Diastolic blood jvvmjgli81 mm[Hg]Marie Tejeda DO Work Phone: [phone] [place], [place] [address]Mwwbzjaudr28-43-9697 11:38-0400Heart rate64 /min Marie Tejeda DO Work Phone: [phone] HospitalAsofeugzqi03-48-2806 11:38-3368YiP5% (BldA) [Mass fraction]96 %Marie Tejeda DO Work Phone: [phone]' HospitalRvkwruelbk89-82-1770 11:38-0400Systolic blood lkqhrpaw224 mm[Hg]Marie Tejeda DO Work Phone: [phone]' HospitalAojssshxiz81-39-1721 12:09-0400Body .8 cmAyana Zavala APRN.MOTOR ROOM CONTROLLER Work Phone: [facility]04-17-2025 12:09-0400Body mass index (BMI) [Ratio]19.3 kg/d6BxpgbyiAyana Zavala APRN.MOTOR ROOM CONTROLLER Work Phone: [facility]04-17-2025 12:09-0400Body onyuar77 kg Ayana Zavala APRN.MOTOR ROOM CONTROLLER Work Phone: [facility]04-17-2025 12:09-0400Diastolic blood oxevaysa66 mm[Hg]Ayana Zavala MED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.MOTOR ROOM CONTROLLER Work Phone: [phone]04-17-2025 12:09-0400Heart rate60 /min Ayana Souleymane MED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.MOTOR ROOM CONTROLLER Work Phone: [phone]04-17-2025 12:09-9486RhL0% (BldA) [Mass fraction]99 %Ayana Zavala MED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.MOTOR ROOM CONTROLLER Work Phone: [phone]04-17-2025 12:09-0400Systolic blood ejrhytbt935 mm[Hg]Ayana Souleymane MED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.MOTOR ROOM CONTROLLER Work Phone: [phone]03-17-2025 14:27-0400Body mass index (BMI) [Ratio]19.96 kg/c0Eweguzy Souleymane MED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.MOTOR ROOM CONTROLLER Work Phone: [phone]03-17-2025 14:27-0400Body .1 kgAyana Zavala MED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.MOTOR ROOM CONTROLLER Work Phone: [phone]03-17-2025 14:27-0400Diastolic blood mm[Hg]Ayana Souleymane 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.[employer]ER Work Phone: [phone]03-17-2025 14:27-0400Heart rate60 /min Ayana Souleymane 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 Work Phone: [phone]03-17-2025 14:27-3848MnG0% (BldA) [Mass fraction]100 %Ayana Zavala MED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.[employer]OR ROOM CONTROLLER Work Phone: [phone]03-17-2025 14:27-0400Systolic blood juursimc386 mm[Hg]Ayana Zavala MED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.M[employer] ROOM CONTROLLER Work Phone: [phone]02-20-2025 10:15-0500Body eryjmu296.8 cmRobert Vaschak DO Work Phone: [facility]02-20-2025 10:15-0500 Body mass index (BMI) [Ratio]20 kg/w4Fdyhsk Vaschak DO Work Phone: [facility]02-20-2025 10:15-0500 Body sbtnit58.5 kgRobmarsha Tejeda DO Work Phone: [facility]02-20-2025 10:15-0500 Diastolic blood dvynlomo13 mm[Hg]Marie Tejeda DO Work Phone: [facility]02-20-2025 10:15-0500 Heart rate60 /minRobamrsha Yunk DO Work Phone: [address] [place], [place] 6287702-20-2025 10:15-0500 Respiratory rate18 /minRobert Ileana DO Work Phone: 4(528)443-[address] [place], [place] 6801602-20-2025 10:15-0500 SaO2% (BldA) [Mass fraction]97 %Marie Tejeda DO Work Phone: [facility]02-20-2025 10:15-0500 Systolic blood aldcjdek728 mm[Hg]Marie Tejeda DO Work Phone: [facility]02-19-2025 13:54-0500 Diastolic blood gbdazntt30 mm[Hg]Marie Tejeda DO Work Phone: [facility] HospitalSjzwttxmpv33-74-1905 13:54-0500Systolic blood mm[Hg]Marie Tejeda DO Work Phone: [facility] HospitalLgoohrqwln88-70-1412 13:50-0500Heart rate61 /min Marie Tejeda DO Work Phone: [facility] HospitalSolzvnwpqv46-38-4866 13:50-5063NlY9% (BldA) [Mass fraction]98 %Marie Tejeda DO Work Phone: [facility] HospitalMxyfuphskq28-19-0563 10:13-0500Body mass index (BMI) [Ratio]21.24 kg/a3Qlfjahv Chiki PASSENGER BRAKEMAN Work Phone: [facility] HospitalDdgtiwxiib92-55-9439 10:13-0500Body xylpxy92.13 kgCaitlin Chiki PASSENGER BRAKEMAN Work Phone: [facility] HospitalVgzclldyje61-76-7751 10:13-0500Diastolic blood wijvvxdl15 mm[Hg]Yomi Chong PASSENGER BRAKEMAN Work Phone: [facility] HospitalGdsjgmpqjo63-49-1757 10:13-0500Heart rate74 /min Yomi Chong PASSENGER BRAKEMAN Work Phone: [facility] HospitalMlyceoeohy56-20-1115 10:13-7550MiO2% (BldA) [Mass fraction]92 %Ymoi Chong PASSENGER BRAKEMAN Work Phone: [facility] HospitalUemgxejhig96-74-7304 10:13-0500Systolic blood onyiflvk079 mm[Hg]Yomi Chong PASSENGER BRAKEMAN Work Phone: [facility] HospitalHrtexeucci59-34-8776 13:57-0500Diastolic blood vyzjysoy58 mm[Hg]Marie Vaschak DO Work Phone: 1(016)535-[address] [place], [place] 6801601-06-2025 13:57-0500 Systolic blood qpfuckoq386 mm[Hg]Marie Vaschak DO Work Phone: 1(142)352-[address] [place], [place] 6801601-06-2025 13:17-0500 Body nohuii125.8 cmRobert Vaschak DO Work Phone: 1(747)710-[address] [place], [place] 6801601-06-2025 12:03-0500 Body jejfhewlyzt61.1 [degF]Marie Vaschak DO Work Phone: 1(912)900-[address] [place], [place] 6801601-06-2025 12:03-0500 Heart rate60 /minRobert Vaschak DO Work Phone: 0(616)781-[address] [place], [place] 6801601-06-2025 12:03-0500 Respiratory rate12 /minRobert Vaschak DO Work Phone: 9(656)519-[address] [place], [place] 6801601-06-2025 12:03-0500 SaO2% (BldA) [Mass fraction]95 %Marie Vaschak DO Work Phone: 2(962)879-[address] [place], [place] 6801601-06-2025 03:36-0500 Body zzaubg689.8 cmRobert Vassunithak DO Work Phone: 1(685)552-[address] [place], [place] 6801601-06-2025 03:36-0500 Body ddrxcusghpo40.6 [degF]Marie Vaschak DO Work Phone: 1(418)[address]01-06-2025 03:36-0500 Body whpypu90.5 kgRobert Vaschak DO Work Phone: 4(270)[address]01-06-2025 03:36-0500 Diastolic blood xbkhwsaj82 mm[Hg]Marie Vassunithak DO Work Phone: 0(762)[address]01-06-2025 03:36-0500 Heart rate61 /minRobert Vaschak DO Work Phone: 6(860)28511 [address]01-06-2025 03:36-0500 Respiratory rate15 /minRobert Vaschak DO Work Phone: 5(995)8-[address] [place], [place] 6801601-06-2025 03:36-0500 SaO2% (BldA) [Mass fraction]91 %Marie Tejeda DO Work Phone: 0(834)1-[address] [place], [place] 6801601-06-2025 03:36-0500 Systolic blood mm[Hg]Marie Yunk DO Work Phone: 4(570)0-[address] [place], [place] 6801612-26-2024 11:15-0500 Body mass index (BMI) [Ratio]21.61 kg/m3IqhvmsiAyana Zavala APRN.M[employer]OR ROOM CONTROLLER Work Phone: [facility]12-26-2024 11:15-0500Body apnqmm16.3 kgAyana Zavala APRN.M[employer]OR ROOM CONTROLLER Work Phone: [phone]12-26-2024 11:15-0500Diastolic blood dcpgpqgi34 mm[Hg]Ayana Zavala APRN.M[employer]OR ROOM CONTROLLER Work Phone: [phone]12-26-2024 11:15-0500Heart rate60 /min Ayana Zavala APRN.M[employer]OR ROOM CONTROLLER Work Phone: [facility]12-26-2024 11:15-0500Systolic blood oadmurrg068 mm[Hg]Ayana Zavala MOTOR ROOM CONTROLLER Work Phone: [facility]12-23-2024 09:23-0500Body gbklwu712.8 cmAilya Oh MD Work Phone: [facility] HospitalYzpzcwxnzb53-74-2512 09:23-0500Body mass index (BMI) [Ratio]20.37 kg/h0LheajlBeto Oh MD Work Phone: [facility] HospitalSvwdtqtgol69-23-5062 09:23-0500Body .41 kgBeto hO MD Work Phone: [facility] HospitalUubgstlfso47-90-6582 12:00-0500Body temperature 97.6 [degF]Marie Xavichak DO Work Phone: [facility]12-11-2024 12:00-0500 Diastolic blood qteqqeue96 mm[Hg]Marie Vaschak DO Work Phone: 1(593)569-[address] [place], [place] 6801612-11-2024 12:00-0500 Heart rate68 /minRobert Vaschak DO Work Phone: 3(729)7-32[facility]12-11-2024 12:00-0500 Respiratory rate16 /minRobert Vaschak DO Work Phone: [facility]12-11-2024 12:00-0500 SaO2% (BldA) [Mass fraction]98 %Marie Vaschak DO Work Phone: 3(140)053-56[facility]12-11-2024 12:00-0500 Systolic blood lwiidced950 mm[Hg]Marie Vaschak DO Work Phone: 2(481)721-31[facility]12-11-2024 06:00-0500 Body iguwvx69.6 kgRobert Vaschak DO Work Phone: 8(893)672-19[facility]12-10-2024 12:12-0500 Body qfkmlo073.34 cmRoberleeann Vassunithak DO Work Phone: 1(831)[address]12-09-2024 14:59-0500 Body rdzfuj196.8 cmRobert Vaschak DO Work Phone: 1(907)[address]12-09-2024 14:59-0500Body mass index (BMI) [Ratio]20.37 kg/a9Bufesg Vaschak DO Work Phone: 1(128)[address] [place], [place] 6714712-09-2024 14:59-0500Body vhiplg59.41 kgRobert Vassunithak DO Work Phone: 1(636)[address] [place], [place] 6714712-09-2024 14:59-0500Diastolic blood fegzxqex38 mm[Hg]Marie Tejeda DO Work Phone: 1(133)[address] [place], [place] 6714712-09-2024 14:59-0500Heart rate70 /min Marie Tejeda DO Work Phone: 1(554)[facility] [place], [place] [address]Popwsfzqov62-95-1500 14:59-0500Systolic blood fgwoquvr930 mm[Hg]Marie Tejeda DO Work Phone: 1(850)[address] [place], [place] 6714712-08-2024 15:42-0500Body temperature 97.6 [degF]Marie Tejeda DO Work Phone: 8(909)[address]12-08-2024 15:42-0500 Diastolic blood albysshj03 mm[Hg]Marie Tejeda DO Work Phone: 3(738)7-[address] [place], [place] 6801612-08-2024 15:42-0500 Heart rate60 /minRobert Vaschak DO Work Phone: 8(113)384-[address] [place], [place] 6801612-08-2024 15:42-0500 Respiratory rate19 /minRobert Vaschak DO Work Phone: 0(909)7-[address] [place], [place] 6801612-08-2024 15:42-0500 SaO2% (BldA) [Mass fraction]96 %Marie Tejeda DO Work Phone: 5(192)863-[address] [place], [place] 6801612-08-2024 15:42-0500 Systolic blood mm[Hg]Marie Tejeda DO Work Phone: 1(493)575-[address] [place], [place] 6801612-08-2024 05:28-0500 Body oershl60.5 kgRobert Vassunithak DO Work Phone: 3(392)[address]12-06-2024 19:55-0500 Body ulszia284.8 cmRobert Jamak DO Work Phone: 1(692)37811 [address]11-19-2024 14:20-0500 Body cnklpy161.8 cmRobert Jamak DO Work Phone: 0(671)[address] [place] [address]-19-2024 14:20-0500Body mass index (BMI) [Ratio]21.09 kg/h2Xrfwjsmarsha Yunk DO Work Phone: [address] [place], [place] [address]Omtimbwcis18-19-6795 14:20-0500Body qrstai83.68 kgRobmarsha Tejeda DO Work Phone: [address] [place], [place] [address]Fqblzwxmhj09-88-9459 14:20-0500Diastolic blood ryebjluq17 mm[Hg]Marie Tejeda DO Work Phone: [place] [address]Yvnmftqbjd39-72-9943 14:20-0500Heart rate61 /min Marie Tejeda DO Work Phone: [place] [address]Ukwkrjjqxa46-12-6709 14:20-2956OoR0% (BldA) [Mass fraction]97 %Marie Tejeda DO Work Phone: 4(845)805-35[place] [address]Dxwrxhmemg25-39-9469 14:20-0500Systolic blood mm[Hg]Marie Tejeda DO Work Phone: [place] [address]Syvbvltykb81-78-2547 08:00-0500Body pqeizknixvx36 [degF]Marie Tejeda DO Work Phone: [facility]11-14-2024 08:00-0500 Diastolic blood nvuywomu32 mm[Hg]Marie Tejeda DO Work Phone: 6(240)054-[address] [place], [place] 6801611-14-2024 08:00-0500 Heart rate60 /minRobert Vaschak DO Work Phone: 9(384)400-[address] [place], [place] 6801611-14-2024 08:00-0500 Respiratory rate16 /minRobert Vaschak DO Work Phone: 3(141)26811 [address]11-14-2024 08:00-0500 SaO2% (BldA) [Mass fraction]97 %Marie Vaschak DO Work Phone: 1(027)[address]11-14-2024 08:00-0500 Systolic blood eoffueae906 mm[Hg]Marie Vaschak DO Work Phone: 9(493)[address]11-14-2024 06:00-0500 Body inhvks60 kgRobert Vaschak DO Work Phone: 0(268)[address]11-13-2024 20:12-0500 Body yxvedz797.8 cmRobert Vaschak DO Work Phone: 1(783)[address]11-13-2024 19:25-0500 Inhaled oxygen flow rate10 L/minRobert Vaschak DO Work Phone: 7(330)[address]10-30-2024 11:10-0400 Diastolic blood olrodilk67 mm[Hg]DO Marie Vaschak Work Phone: 7(369)[address]10-30-2024 11:10-0400 Heart rate61 /minDO Marie Vaschak Work Phone: 6(871)9-[address] [place], [place] 6801610-30-2024 11:10-0400 Systolic blood zwxqitpi146 mm[Hg]DO Marie Vaschak Work Phone: 6(084)4-[address] [place], [place] 6801610-30-2024 11:00-0400 Body ahinpj003.8 cmDO Marie Vaschak Work Phone: 6(417)778-[address] [place], [place] 6801610-30-2024 11:00-0400 Body mass index (BMI) [Ratio]21.9 kg/m2DO Marie Vaschak Work Phone: 1(948)25611 [address]10-30-2024 11:00-0400 Body xoioar40.39 kgDO Marie Tejeda Work Phone: 1(113)[address]10-30-2024 11:00-0400 Respiratory rate18 /minDO Marie Jamak Work Phone: 2(455)[address]10-30-2024 11:00-0400 SaO2% (BldA) [Mass fraction]98 %DO Marie Tejeda Work Phone: 1(100)[address] [place], [place] 7348710-16-2024 14:14-0400 Diastolic blood vfjsixci33 mm[Hg]DO Marie Ileana Work Phone: 1(563)[address]10-16-2024 14:14-0400 Systolic blood ccroxuaa284 mm[Hg]DO Marie Tejeda Work Phone: 1(378)[address] [place], [place] 7348710-16-2024 13:23-0400 Body rhbyxc682.8 cmDO Marie Tejeda Work Phone: 1(661)[address] [place], [place] 7348710-16-2024 13:23-0400 Body mass index (BMI) [Ratio]22.2 kg/m2DO Marie Tejeda Work Phone: 7(151)[address] [place], [place] 7348710-16-2024 13:23-0400 Body njersd08.3 kgDO Marie Tejeda Work Phone: 2(246)[address] [place], [place] 7348710-16-2024 13:23-0400 Heart rate56 /minDO Marie Tejeda Work Phone: 3(537)[address]10-16-2024 13:23-0400 Respiratory rate18 /minDO Marie Yunk Work Phone: 1(350)[address]10-16-2024 13:23-0400 SaO2% (BldA) [Mass fraction]94 %DO Marie Ileana Work Phone: 1(182)[address] [place], [place] 7348710-16-2024 10:24-0400 Diastolic blood ljcgymtw62 mm[Hg]DO Marie Tejeda Work Phone: [facility]10-16-2024 10:24-0400 Heart rate55 /Eleazar Tejeda Work Phone: [facility]10-16-2024 10:24-0400 Respiratory rate12 /Eleazar Tejeda Work Phone: [facility]10-16-2024 10:24-0400 SaO2% (BldA) [Mass fraction]97 %DO Marie Tejeda Work Phone: [facility]10-16-2024 10:24-0400 Systolic blood yjxdbscx500 mm[Hg]DO Marie Tejeda Work Phone: [facility]10-14-2024 15:59-0400 Diastolic blood alqzegue90 mm[Hg]Anatoly Cally PASSENGER BRAKEMAN Work Phone: [facility] HospitalNvxhqibzcu83-28-8789 15:59-0400Heart rate50 /min Yuerong Cally PASSENGER BRAKEMAN Work Phone: [facility] HospitalBvjvmhykfv17-89-3316 15:59-7191FpC9% (BldA) [Mass fraction]90 %Yuerong Cally PASSENGER BRAKEMAN Work Phone: [facility] HospitalYgoncivwqs88-59-0854 15:59-0400Systolic blood ggiqilnj379 mm[Hg]Yuerong Cally PASSENGER BRAKEMAN Work Phone: [facility] HospitalBogmdfwvdp29-41-1566 10:52-0400Diastolic blood nyzskmrr97 mm[Hg]Marie Jamak DO Work Phone: [facility] HospitalHsabtagdqu66-73-8402 10:52-0400Heart rate52 /min Marie Vaschak DO Work Phone: [place] [address]Ljcememhyt33-55-6994 10:52-2139HdT2% (BldA) [Mass fraction]94 %Marie Jamak DO Work Phone: [place] [address]Zuykvuvung76-95-5895 10:52-0400Systolic blood mm[Hg]Marie Jamak DO Work Phone: 8(846)[phone] HospitalWfaitxsfcg35-21-2395 10:50-0400Body .8 cmRobert Jamak DO Work Phone: [facility] HospitalHoeidoazhg57-93-1173 10:50-0400Body mass index (BMI) [Ratio]20.81 kg/m8Psbgeo Vaschak DO Work Phone: [facility] HospitalUnlviygpir76-57-8247 10:50-0400Body mvowvo13.77 kgRobert Vaschak DO Work Phone: 7(478)[address]09-16-2024 11:09-0400Body eyftne007.8 cmDO Marie Yunk Work Phone: 9(128)[address]09-16-2024 11:09-0400 Body mass index (BMI) [Ratio]20.9 kg/m2DO Marie Yunk Work Phone: 1(396)[address]09-16-2024 11:09-0400 Body .22 kgDO Marie Jamak Work Phone: 2(235)[address]09-16-2024 11:09-0400 Diastolic blood epmzwxey25 mm[Hg]DO Marie Jamak Work Phone: 9(565)[address]09-16-2024 11:09-0400 Heart rate61 /minDO Marie Yunk Work Phone: 7(449)[address]09-16-2024 11:09-0400 Respiratory rate18 /minDO Marie Yunk Work Phone: 9(964)331-[address] [place], [place] 6801609-16-2024 11:09-0400 SaO2% (BldA) [Mass fraction]97 %DO Marie Xavichak Work Phone: 2(604)[address] [place], [place] 6801609-16-2024 11:09-0400 Systolic blood gekpetox447 mm[Hg]DO Marie Xavichak Work Phone: 4(938)867-[address] [place], [place] 6801609-04-2024 11:08-0400 Diastolic blood ykjugygl71 mm[Hg]DO Marie Jamak Work Phone: 3(684)151-[address] [place], [place] 6801609-04-2024 11:08-0400 Heart rate59 /Eleazar Yunk Work Phone: 0(391)516-[address] [place], [place] 6801609-04-2024 11:08-0400 Systolic blood mm[Hg]DO Marie Xavichak Work Phone: 1(247)919-[address] [place], [place] 6801609-04-2024 11:07-0400 Respiratory rate18 /TitaO Marie Yunk Work Phone: 4(588)[address]09-04-2024 11:06-0400 Body muncpv380.8 cmDO Marie Yunk Work Phone: 7(440)[address]09-04-2024 11:06-0400 Body mass index (BMI) [Ratio]21.5 kg/m2DO Marie Yunk Work Phone: 1(803)[address]09-04-2024 11:06-0400 Body .03 kgDO Marie Tejeda Work Phone: 4(881)[address]09-04-2024 11:06-0400 SaO2% (BldA) [Mass fraction]95 %DO Marie Jamak Work Phone: 5(508)602-[address] [place], [place] 6801608-30-2024 11:01-0400 Diastolic blood obqcgdtr39 mm[Hg]DO Marie Xavichak Work Phone: [address] [place], [place] 6287708-30-2024 11:01-0400 Heart rate45 /TitaO Marie Yunk Work Phone: 5(883)282-[address] [place], [place] 6801608-30-2024 11:01-0400 Systolic blood ohxzroqh396 mm[Hg]DO Marie Vaschak Work Phone: 4(622)843-[address] [place], [place] 6801608-28-2024 11:24-0400 Diastolic blood dgluptcq23 mm[Hg]DO Marie Ileana Work Phone: [facility]08-28-2024 11:24-0400 Heart rate54 /Eleazar Tejeda Work Phone: [facility]08-28-2024 11:24-0400 Systolic blood mm[Hg]DO Marie Tejeda Work Phone: 1(268)027-[address] [place], [place] 6801608-21-2024 12:36-0400 Respiratory rate18 /minDO Marie Tejeda Work Phone: 1(111)[address]08-21-2024 12:36-0400 SaO2% (BldA) [Mass fraction]97 %DO Marie Teejda Work Phone: 8(541)[address]08-20-2024 13:29-0400 Diastolic blood iuunqqly56 mm[Hg]DO Marie Tejeda Work Phone: 8(581)[address]08-20-2024 13:29-0400 Heart rate52 /Eleazar Tejeda Work Phone: 1(537)196-[address] [place], [place] 6801608-20-2024 13:29-0400 Systolic blood dksuohbq25 mm[Hg]DO Marie Tejeda Work Phone: 8(409)[address]08-20-2024 13:25-0400 Respiratory rate18 /Eleazar Tejeda Work Phone: 2(299)772-[address] [place], [place] 6801608-20-2024 13:24-0400 Body .8 cmDO Marie Tejeda Work Phone: 9(743)667-[address] [place], [place] 6801608-20-2024 13:24-0400 Body mass index (BMI) [Ratio]21.4 kg/m2DO Marie Jamak Work Phone: 3(326)433-[address] [place], [place] 6801608-20-2024 13:24-0400 Body oeoupr28.58 kgDO Marie Yunk Work Phone: 9(937)014-[address] [place], [place] 6801608-20-2024 13:24-0400 SaO2% (BldA) [Mass fraction]99 %DO Marie Xavichak Work Phone: 1(086)429-[address] [place], [place] 6801608-06-2024 10:12-0400 Diastolic blood xfziaypa29 mm[Hg]DO Marie Jamak Work Phone: 1(946)066-[address] [place], [place] 6801608-06-2024 10:12-0400 Heart rate48 /minDO Marie Yunk Work Phone: 1(762)[address]08-06-2024 10:12-0400 Systolic blood dyozauyp68 mm[Hg]DO Marie Jamak Work Phone: 1(684)[address]08-06-2024 10:11-0400 Body lgahgy813.8 cmDO Marie Tejeda Work Phone: 1(360)[address]08-06-2024 10:11-0400 Body mass index (BMI) [Ratio]21.5 kg/m2DO Marie Tejeda Work Phone: 1(269)[address]08-06-2024 10:11-0400 Body .03 kgDO Marie Tejeda Work Phone: 1(303)434[address]08-06-2024 10:11-0400 Respiratory rate18 /Eleazar Tejeda Work Phone: 1(831)[address]08-06-2024 10:11-0400 SaO2% (BldA) [Mass fraction]97 %DO Marie Ileana Work Phone: 1(701)798-[address] [place], [place] 6801607-30-2024 11:29-0400 Diastolic blood bzlikesg63 mm[Hg]DO Marie Ileana Work Phone: 2(895)[address]11 [address]07-30-2024 11:29-0400 Heart rate45 /TitaO Marie Jamak Work Phone: 8(878)437-[address] [place], [place] 6801607-30-2024 11:29-0400 Respiratory rate16 /minDO Marie Jamak Work Phone: 1(584)826-[address] [place], [place] 6801607-30-2024 11:29-0400 SaO2% (BldA) [Mass fraction]98 %DO Marie Jamak Work Phone: 0(855)628-[address] [place], [place] 6801607-30-2024 11:29-0400 Systolic blood fpipgmeu115 mm[Hg]DO Marie Xavichak Work Phone: 6(644)746-[address] [place], [place] 6801607-30-2024 07:59-0400 Body qgqqejshayj61.8 [degF]DO Marie Jamak Work Phone: 1(010)[address]07-30-2024 05:37-0400 Body arurbw35.9 kgDO Marie Tejeda Work Phone: 1(776)[address]07-28-2024 15:56-0400 Body ubplcs030.8 cmDO Marie Tejeda Work Phone: 8(457)312-[address] [place], [place] 6801607-28-2024 00:57-0400 Diastolic blood jpngyvup78 mm[Hg]DO Marie Ileana Work Phone: 1(456)012-[address] [place], [place] 6801607-28-2024 00:57-0400 Heart rate58 /minDO Marie Tejeda Work Phone: 8(875)190-[address] [place], [place] 6801607-28-2024 00:57-0400 Respiratory rate18 /minDO Marie Tejeda Work Phone: [address] [place], [place] 6287707-28-2024 00:57-0400 SaO2% (BldA) [Mass fraction]100 %DO Marie Ileana Work Phone: [address] [place], [place] 6287707-28-2024 00:57-0400 Systolic blood rvsyhfyl428 mm[Hg]DO Marie Jamak Work Phone: 2(697)660-[address] [place], [place] 6801607-27-2024 19:13-0400 Body ieddwv503.07 cmDO Marie Jamak Work Phone: 3(962)966-[address] [place], [place] 6801607-27-2024 19:13-0400 Body dfgocesdtoq49.6 [degF]DO Marie Xavichak Work Phone: 2(122)238-[address] [place], [place] 6801607-27-2024 19:13-0400 Body cdeuml90.5 kgDO Marie Tejeda Work Phone: 8(579)[address]05-02-2024 13:50-0400 Diastolic blood hmvactkq43 mm[Hg]DO Marie Tejeda Work Phone: 2(509)[address]05-02-2024 13:50-0400 Heart rate56 /Eleazar Tejeda Work Phone: 0(231)64211 [address]05-02-2024 13:50-0400 Respiratory rate16 /TitaO Marie Tejeda Work Phone: 8(403)[address]05-02-2024 13:50-0400 SaO2% (BldA) [Mass fraction]97 %DO Marie Tejeda Work Phone: 4(974)[address]05-02-2024 13:50-0400 Systolic blood bytveafm078 mm[Hg]DO Marie Tejeda Work Phone: 1(096)[address]05-02-2024 12:20-0400 Body etoxul892.8 cmDO Marie Tejeda Work Phone: 2(904)[address]05-02-2024 12:20-0400 Body zarzhm72.77 kgDO Marie Tejeda Work Phone: 6(912)1-[address] [place], [place] 6801604-18-2024 14:51-0400 Body ljpcaj548.8 cmDO Marie Tejeda Work Phone: 5(781)997-[address] [place], [place] 6801604-18-2024 14:51-0400 Body mass index (BMI) [Ratio]20.9 kg/m2DO Marie Tejeda Work Phone: 3(035)505-[address] [place], [place] 6801604-18-2024 14:51-0400 Body eyoark88.22 kgDO Marie YunGigantt Work Phone: 9(605)310-[address] [place], [place] 6801604-18-2024 14:51-0400 Diastolic blood lbhiwwgf90 mm[Hg]DO Marie Tejeda Work Phone: 1(443)[address]11 [address]04-18-2024 14:51-0400 Heart rate64 /Eleazar Tejeda Work Phone: 1(138)[address]11 [address]04-18-2024 14:51-0400 Respiratory rate18 /TiatO Marie Tejeda Work Phone: 1(117)[address]04-18-2024 14:51-0400 SaO2% (BldA) [Mass fraction]96 %DO Marie Tejeda Work Phone: 1(584)[address]04-18-2024 14:51-0400 Systolic blood mm[Hg]DO Marie Ileana Work Phone: 1(481)[address]04-11-2024 08:36-0400 Body uoemdq665.8 cmDO Marie YunGigantt Work Phone: 1(061)[address]04-11-2024 08:36-0400 Body mass index (BMI) [Ratio]21.2 kg/m2DO Marie PerSaysunithaGigantt Work Phone: 0(573)[address]04-11-2024 08:36-0400 Body zeszag02.13 kgDO Marie YunGigantt Work Phone: 2(466)[address]03-19-2024 10:26-0400 Body mzncvy571.8 cmDO Marie YunGigantt Work Phone: 3([phone])[address]03-19-2024 10:26-0400 Body mass index (BMI) [Ratio]21.2 kg/m2DO Marie PerSaysunithaGigantt Work Phone: 9(903)377-[address] [place], [place] 6801603-19-2024 10:26-0400 Body arvjqx93.13 kgDO Marie JamaGigantt Work Phone: 2(417)038-[address] [place], [place] [id number] 15:40-0400 Diastolic blood yfhfming09 mm[Hg]DO Marie Xavichak Work Phone: [facility]03-18-2024 15:40-0400 Heart rate72 /Eleazar Tejeda Work Phone: [facility]03-18-2024 15:40-0400 Systolic blood hygnhrzk184 mm[Hg]DO Marie Tejeda Work Phone: [phone]02-26-2024 12:00-0500 Body ezjvhdowqoo98.4 [degF]DO Marie Tejeda Work Phone: [address] [place], [place] [id number] 12:00-0500 Diastolic blood mm[Hg]DO Marie Tejeda Work Phone: 1(236)425-[address] [place], [place] 6801602-26-2024 12:00-0500 Heart rate67 /Eleazar Tejeda Work Phone: [address] [place], [place] [id number] 12:00-0500 Respiratory rate16 /Eleazar Tejeda Work Phone: [address] [place], [place] [id number] 12:00-0500 SaO2% (BldA) [Mass fraction]97 %DO Marie Tejeda Work Phone: [phone]02-26-2024 12:00-0500 Systolic blood xetgnpps712 mm[Hg]DO Marie Tejeda Work Phone: [facility]02-26-2024 06:00-0500 Body lgihyn23.2 kgDO Marie Tejeda Work Phone: [facility]02-21-2024 15:42-0500 Body eitzvk540.8 cmDO Marie Tejeda Work Phone: [facility]02-05-2024 14:07-0500 Body yzdeeb785.8 cmSammy Berman APRN-KALANI Work Phone: [facility]02-05-2024 14:07-0500 Body mass index (BMI) [Ratio]20.09 kg/t3CbkniSammy Berman 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[employer] Work Phone: [facility]02-05-2024 14:07-0500 Body .5 kgSammy Berman [employer]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[employer] Work Phone: [facility]02-05-2024 14:07-0500 Diastolic blood jvidtree41 mm[Hg]Sammy Berman 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[employer] Work Phone: [facility]02-05-2024 14:07-0500 Heart rate72 /Markus Berman 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[employer] Work Phone: [facility]02-05-2024 14:07-0500 Systolic blood wabweshm106 mm[Hg]Sammy Berman 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[employer] Work Phone: [facility]01-05-2024 22:45-0500 Diastolic blood jqvuakqz90 mm[Hg]DO Marie Tejeda Work Phone: [facility]01-05-2024 22:45-0500 Heart rate69 /Eleazar Tejeda Work Phone: [address] [place], [place] 6287701-05-2024 22:45-0500 Respiratory rate16 /Eleazar Yunk Work Phone: [address] [place], [place] 6287701-05-2024 22:45-0500 SaO2% (BldA) [Mass fraction]98 %DO Marie Tejeda Work Phone: [facility]01-05-2024 22:45-0500 Systolic blood exnxrwuj163 mm[Hg]DO Marie Hurleychak Work Phone: [facility]01-05-2024 13:24-0500 Body wohfho146.8 cmDO Marie Yunk Work Phone: [facility]01-05-2024 13:24-0500 Body mvvsveqgzmb16.7 [degF]DO Marie Yunk Work Phone: [facility]01-05-2024 13:24-0500 Body .95 kgDO Marie Tejeda Work Phone: [facility]11-14-2023 13:41-0500 Diastolic blood okckeamd39 mm[Hg]Govind Davis DO Work Phone: [facility]11-14-2023 13:41-0500 Systolic blood bzxypmwl317 mm[Hg]Govind Davis DO Work Phone: [facility]11-14-2023 13:37-0500 Body otejvm268.8 cmWieron Davis DO Work Phone: [address] [place], [place] [address]11-14-2023 13:37-0500 Body mass index (BMI) [Ratio]19.51 kg/m5YsovtyqGovind Davis DO Work Phone: [facility]11-14-2023 13:37-0500 Body qyszgg39.69 kgWieron Davis DO Work Phone: [facility]11-14-2023 13:37-0500 Heart rate70 /minGovind Davis DO Work Phone: [facility]10-28-2023 10:33-0400 Diastolic blood mm[Hg]DO Marie Tejeda Work Phone: [facility]10-28-2023 10:33-0400 Heart rate97 /Eleazar Tejeda Work Phone: [facility]10-28-2023 10:33-0400 Respiratory rate18 /minDJuan Ramon Yunk Work Phone: [facility]10-28-2023 10:33-0400 Systolic blood rzncgagk005 mm[Hg]DO Marie Jamak Work Phone: [facility]10-28-2023 05:00-0400 Body oqffgeqtwob99.8 [degF]DO Marie Xavichak Work Phone: [phone]10-28-2023 05:00-0400 SaO2% (BldA) [Mass fraction]97 %DO Marie Tejeda Work Phone: 1(684)[address]10-24-2023 11:00-0400 Body ferleq605.8 cmDO Marie Tejeda Work Phone: 7(426)[address] [place], [place] 7348710-23-2023 16:44-0400 Body aljsws29.4 kgDO Marie Tejeda Work Phone: 1(572)[address] [place], [place] 7348710-23-2023 11:48-0400 Body vppkodctdte33.1 [degF]DO Marie Tejeda Work Phone: 1(997)[address] [place], [place] 7348710-23-2023 11:48-0400 Diastolic blood jfwirvtu02 mm[Hg]DO Marie Tejeda Work Phone: 1(156)[address] [place], [place] [address]8710-23-2023 11:48-0400 Heart rate55 /Eleazar Tejeda Work Phone: 1(224)[address] [place], [place] 7348710-23-2023 11:48-0400 Respiratory rate18 /Eleazar Tejeda Work Phone: 0(414)[address]10-23-2023 11:48-0400 SaO2% (BldA) [Mass fraction]99 %DO Marie Tejeda Work Phone: 8(331)[address]10-23-2023 11:48-0400 Systolic blood wsrcaold437 mm[Hg]DO Marie Tejeda Work Phone: 1(729)[address]10-23-2023 05:40-0400 Body nmjdel00.6 kgDO Marie Tejeda Work Phone: 7([phone])[address]10-22-2023 00:00-0400 Inhaled oxygen flow rate6 L/Eleazar Tejeda Work Phone: [phone](327)[address]10-20-2023 15:31-0400 Body mass index (BMI) [Ratio]18.8 kg/m2DO Marie Tejeda Work Phone: [phone]10-20-2023 15:25-0400 Body ahvyrc803.34 cmDO Marie Tejeda Work Phone: 1(258)[address]10-18-2023 16:32-0400 Heart rate63 /Eleazar Tejeda Work Phone: 1(499)[address]10-18-2023 16:24-0400 Diastolic blood uusnzxyp11 mm[Hg]DO Marie Tejeda Work Phone: 1(577)[address]10-18-2023 16:24-0400 Respiratory rate18 /Eleazar Tejeda Work Phone: 1(704)[address]10-18-2023 16:24-0400 SaO2% (BldA) [Mass fraction]98 %DO Marie Tejeda Work Phone: 1(427)[address] [place], [place] 7348710-18-2023 16:24-0400 Systolic blood kkuvxiwh851 mm[Hg]DO Marie Tejeda Work Phone: 1(763)[address] [place], [place] [address]10-18-2023 13:34-0400 Body spfxyplixbh73.2 [degF]DO Marie Tejeda Work Phone: 1(392)[address]10-18-2023 12:19-0400 Body bpidaw848.34 cmDO Marie Tejeda Work Phone: 1(660)[address]10-18-2023 12:19-0400 Body yklnhu80.41 kgDO Marie Tejeda Work Phone: 1(402)[address]06-29-2022 09:35-0400 Diastolic blood mm[Hg]Gray Ross MD Work Phone: bon [facility]06-29-2022 09:35-0400Systolic blood ldddvtxy987 mm[Hg]Gray Ross MD Work Phone: bon [facility]06-29-2022 07:46-0400Body wlbhdhrirth74.81 [degF]Gray Ross MD Work Phone: [facility]06-29-2022 07:46-0400Heart rate64 /minGray Ross MD Work Phone: b[facility]06-29-2022 07:46-0400 Respiratory rate15 /minGray Ross MD Work Phone: [facility]06-29-2022 07:46-0367PsP1% (BldA) [Mass fraction]98 %Gray Ross MD Work Phone: [facility]06-25-2022 04:00-0400Body dajmha545.8 cmGray Ross MD Work Phone: [facility]06-25-2022 04:00-0400Body mass index (BMI) [Ratio]20.81 kg/y0RgwigpmGray Ross MD Work Phone: [facility]06-25-2022 04:00-0400Body hdosha65.8 kgGray oRss MD Work Phone: [facility] Encounters Encounter DateEncounter TypeCare ProviderFacilityStart: 05-21-2025 End: 61-74-3926cgebtcuswmDufyqvc P COOKFacility:EU [place]vueStart: 05-21-2025 End: 84-69-7736Kawuijw encounter procedureTristan MELCHOR [facility] [place] start: 05-17-2025 End: 13-64-4259Tihrgqlrx department patient visitAstrit H NicolasariFacility:[facility] Start: 05-10-2025 End: 87-82-1986Mfocvzzeq Result EncounterGeneric External Data ProviderNOMS External Department UnsolicitedStart: 05-10-2025 End: 21-96-1217Gqfnugabq Result EncounterGeneric External Data ProviderNOMS External Department UnsolicitedStart: 05-09-2025 End: 39-30-2936bvyxuyydfhQjncmu Ileana DO Work Phone: [phone]-[facility]xxeripiu Health CardiologyStart: 05-09-2025 End: 22-39-7180Qzzgscq encounter procedureAnat Perez MD-[facility] Card[facility] Work Phone: Start: 05-08-2025 End: 98-85-8226Nhnjnzraf Result EncounterGeneric External Data ProviderNOMS External Department UnsolicitedStart: 05-08-2025 End: 93-81-3399Nsdryfxrn Result EncounterGeneric External Data ProviderNOMS External Department UnsolicitedStart: 05-03-2025 End: 40-59-5434qiqgnvqktlPSBWAWN MARSHALLFacility:[facility] Start: 05-02-2025 End: 23-57-4277cggepcxiigCNW WARCHOLNot AvailableStart: 05-02-2025 End: 25-26-7320Qamscs outpatient visit 40 minutesMarga Robledo NP Work Phone: [facility] Internal MedicineComment on above:Need for follow-up care [...] (implantable cardioverter-defibrillator) in place; PacemakerStart: 04-25-2025 End: 44-78-3904nzbooowfrrXkvqmrz P COOKFacility:EU kStart: 04-25-2025 End: 33-08-8232Yqfhmkg encounter procedureTristan MELCHOR [facility] Start: 04-18-2025 End: 37-38-4420alriyhegumCpdfidc P COOKFacility:EU Johnnietart: 04-18-2025 End: 10-84-0635Csozkiu encounter procedureGreggiuliano MELCHOR [facility] Start: 12-72-8874yclukjcikfOotljs HajdariFacility:EU [place]Start: 04-09-2025 End: 99-90-1102Slogkzura Result EncounterGeneric External Data ProviderNOMS External Department UnsolicitedStart: 04-09-2025 End: 75-24-9211Fiojlxivh Result EncounterGeneric External Data ProviderNOMS External Department UnsolicitedStart: 04-09-2025 End: 15-38-6704pnnvmqlccnRWXIEKO MARSHALLFacility:[facility] Start: 04-09-2025 End: 15-26-0426lvcqflphceJVJPWS TRU TEJEDAFacility:[facility] Start: 04-02-2025 End: 43-15-6780Smtspewmt Result EncounterGeneric External Data ProviderNOMS External Department UnsolicitedStart: 04-02-2025 End: 64-12-3794Qqsilkgzx Result EncounterGeneric External Data ProviderNOMS External Department UnsolicitedStart: 03-28-2025 End: 54-12-9785Ujbygi-up encounterMelrudi Peguero LPNEndocrinologyStart: 03-27-2025 End: 73-53-1801pvfebinsrmGjkamw Vaschak DO Work Phone: [facility] Work Phone: Start: 03-27-2025 End: 07-49-3366Ovdfdzg encounter procedureAnat Perez MD-[facility] Cardiology Work Phone: Start: 03-16-2025 End: 46-90-6286Rrwqko Cesar Zavala APRN.CNP Work Phone: EndocrinologyStart: 03-02-2025 End: 69-48-0076dtztjmkzczKzxaez IleanaFacility:[facility] Systemtart: 68-53-1016Rxr-patient / Non-visitMikel Root-Heart Rhythm ClinicStart: 02-13-2025 End: 02-43-5975Ytoppkthq Result EncounterGeneric External Data ProviderNOMS External Department UnsolicitedStart: 02-13-2025 End: 87-87-8829Qnixnxcav Result EncounterGeneric External Data ProviderNOMS External Department UnsolicitedStart: 02-05-2025 End: 47-51-9043zjeyfyzhpvOhhacxd Bayer APRN.CNP Work Phone: RheumatologyComment on above:Blood testStart: 02-05-2025 End: 37-06-5313Inmauvlsy encounterAyana Zavala APRN.CNP Work Phone: EndocrinologyStart: 01-16-2025 End: 50-36-1561ekboyyclhjLCLTMC J VASCHAKNot AvailableStart: 01-08-2025 End: 43-42-0503Roociw OnlyRobert J Vaschak DO Work Phone: noms External Department UnsolicitedStart: 01-02-2025 End: 12-08-3422Hodjtl outpatient visit 25 minutesRobert J PerSaychak DO Work Phone: NOL[facility] SWS IMComment on above:Pancreatic insufficiency (HCC) (Primary Dx); PleurisyStart: 01-02-2025 End: 45-72-6693dtevfsvsuhNISQBT J VASCHAKNot AvailableStart: 01-01-2025 End: 90-75-9736uobywbvcvnFfyswscAnastasia Zavala APRN.CNP Work Phone: EndocrinologyComment on above:Rx for sensorsStart: 12-26-2024 End: 23-93-4204kfcrgbkjkmQbpohboNohelia Zavala APRN.CNP Work Phone: EndocrinologyComment on above:SensorsStart: 12-19-2024 End: 80-68-4043Wxcdtfpwm encounterAyana Zavala APRN.CNP Work Phone: EndocrinologyComment on above:Refill RequestStart: 12-12-2024 End: 37-08-6005MnqrhxNzqnbfxAyana Zavala APRN.CNP Work Phone: EndocrinologyComment on above:Refill RequestStart: 11-30-2024 End: 50-13-7699skcazwaorbEoyhji VaschakFacility:[facility] Systemtart: 68-56-2029Zyg-patient / Non-visitAt[facility] Health [facility]-Heart Rhythm ClinicStart: 11-01-2024 End: 91-56-2629oncprxtqfhKnzihiwNohelia Zavala APRN.CNP Work Phone: EndocrinologyComment on above:Medication changeStart: 10-26-2024 End: 67-42-0781Lpjjgop encounter procedureAyana Zavala APRN.CNP Work Phone: EndocrinologyComment on above: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, with long-term current use of insulin(HCC) (Primary Dx); 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); Insulin pump status; Insulin pump titrationStart: 10-26-2024 End: 61-72-4189lnfwqvrbgiHHKQIMRy Brumfieldcility:[facility] Start: 10-23-2024 End: 28-77-7039Bzrjkphaw Result EncounterGeneric External Data ProviderNOMS External Department UnsolicitedStart: 10-23-2024 End: 17-53-9836Khiglldlt Result EncounterGeneric External Data ProviderNOMS External Department UnsolicitedStart: 10-13-2024 End: 00-23-3964Lcxdtwzeh encounterGaye Mata RNDiBaylor Scott & [facility] FHCComment on above:Omnipod/Dexcom issuesStart: 10-13-2024 End: 32-47-7454breyfcsshwGnpeyp Vaschak DO Work Phone: [facility] Work Phone: Start: 10-13-2024 End: 13-58-6079Xbbrbgg encounter procedureRobmarsha Tejeda DO Work Phone: [facility]First[facility] Work Phone: Start: 10-11-2024 End: 58-47-4051Nlzbmrtdm encounterAyana Zavala APRN.CNP Work Phone: EndocrinologyComment on above:Insurance Authorization (insulin pump cart,auto,BT,G6/7 (OMNIPOD 5 G6-G7 PODS, GEN 5,) crtg)Omnipod 5/Dexcom G7 issuesStart: 10-10-2024 End: 16-36-2843Rpceakczv encounterGaye TorresBaylor Scott & White [facility] FHCComment on above:Dexcom G7 CGM supply issuesStart: 10-04-2024 End: 76-50-7446VsyfdnMhrawvdLashon Zavala APRN.CNP Work Phone: EndocrinologyComment on above:Med Change RequestStart: 10-04-2024 End: 62-78-4660Qhfcryekc encounterGaye TorresBaylor Scott & [facility] FHCComment on above:Omnipod 5/Dexcom helpDexcom G7 CGM supply issues Start: 09-27-2024 End: 65-21-7115nqsrsfdgzdBgtkreqNohelia Zavala APRN.CNP Work Phone: EndocrinologyComment on above:GlucoseStart: 09-27-2024 End: 28-24-7001Zuueasqha encounterGaye TorresBaylor Scott & [facility] FHCComment on above:Omnipod 5 pump follow up callStart: 09-26-2024 End: 87-82-4175Arztdj-up encounterAyana Zavala APRN.CNP Work Phone: EndocrinologyStart: 09-26-2024 End: 38-64-6147Pgmplljry Aisha Zavala APRN.CNP Work Phone: EndocrinologyStart: 09-25-2024 End: 54-64-2629zkuwcoqrrdBIFSXC JOSEPH VASCHAKFacility:[facility] Start: 09-25-2024 End: 64-90-8107Tyoxhez encounter Margaret Zavala APRN.CNP Work Phone: EndocrinologyComment on above: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, with long-term current use of insulin(HCC) (Primary Dx); 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); Insulin pump status; Insulin pump titrationStart: 09-22-2024 End: 49-06-6007Uevnts OnlyAyana Zavala APRN.CNP Work Phone: EndocrinologyComment on above: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, with long-term current use of insulin(HCC) (Primary Dx)Omnipod 5 pump issueStart: 09-21-2024 End: 23-11-4481Vbdvyjxvi encounterGaye Torresabetic [facility] Stephenvillement on above:Omipod 5 upgrade follow up callStart: 09-13-2024 End: 28-00-5947Ehuveffap Result EncounterGeneric External Data ProviderNOMS External Department UnsolicitedStart: 09-13-2024 End: 65-38-2968Gnukjmuss Result EncounterGeneric External Data ProviderNOMS External Department UnsolicitedStart: 09-04-2024 End: 22-31-8698dqnqwubgopPMOAVC TRU ILEANAFacility:[facility] Start: 09-04-2024 End: 03-20-1143Zpxgfja evaluation of patient and reportGaye Torresabetic [facility] Hospitalomment on above: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, with long-term current use of insulin(HCC) (Primary Dx)Start: 08-31-2024 End: 25-63-0051Fixckjcyj encounterGaye Torresabetic [facility] on above:AppointmentStart: 08-31-2024 End: 88-40-2147yebgboidbhXbfqqi Vaschak DO Work Phone: [facility] Work Phone: Start: 08-31-2024 End: 77-31-1819Gtwnbze encounter procedureRobert Vaschak DO Work Phone: [facility] Cardiology Work Phone: Start: 08-30-2024 End: 10-78-5140Imkmge outpatient visit 40 minutesRobert Khoi Tejeda DO Work Phone: NOAK SWS IMComment on above:Abdominal wall abscess; Acquired total absence of pancreas; Insulin pump in place; Lower respiratory infection; ICD (implantable cardioverter-defibrillator) in place; H/O splenectomy; 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); Chronic systolic CHF (congestive heart failure), NYHA class 2 (CMS/HCC); Nonrheumatic mitral valve regurgitation; Pancreatic insufficiency (CMS/HCC)Start: 08-30-2024 End: 14-98-1772gzuhneyjhlZVBMQV Khoi VASSUNITHAKNot AvailableStart: 08-29-2024 End: 96-63-9618rldxdnsaqyIsznss XavichakFacility:[facility] Systemtart: 68-29-0156Dvo-patient / Non-visitRobert Vasjorge DO Work Phone: [facility]-Heart Rhythm ClinicStart: 08-15-2024 End: 17-93-3932Lhrxegvxb encounterKirsroys Zavala APRN.CNP Work Phone: EndocrinologyComment on above:Forms ([employer]- Physcians order)Start: 08-09-2024 End: 70-10-9587Jmbkmaizu encounterKirsrosy Zavala APRN.CNP Work Phone: EndocrinologyComment on above:Forms ([employer] - [facility] note)Start: 07-25-2024 End: 00-16-5907ohfiztqdrtWDSRKT TRU TEJEDAFacility:[facility] Start: 07-25-2024 End: 72-66-5179Vrwjzjw evaluation of patient and reportGaye TorresBaylor Scott & [facility] FHCComment on above: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, with long-term current use of insulin(HCC) (Primary Dx)Start: 07-21-2024 End: 71-30-9669Fhhjgvjiy Result EncounterGeneric External Data ProviderNOMS External Department UnsolicitedStart: 07-21-2024 End: 86-69-3642Janhmturt Result EncounterGeneric External Data ProviderNOMS External Department UnsolicitedStart: 07-21-2024 End: 69-65-3762Bsgttpial encounterGaye TorresBaylor Scott & [facility] FHCComment on above:AppointmentStart: 07-20-2024 End: 08-46-4059crfgcqumgqKCYJGN J VASCHAKNot AvailableStart: 07-20-2024 End: 57-08-9615Zysvervtoczd care manage srvc 7 day dischargeYomi Chong NP Work Phone: [facility] IMComment on above:Chronic systolic CHF (congestive heart failure), NYHA class 2 (CMS/HCC) (Primary Dx); Pancreatic insufficiency (CMS/HCC); History of bleeding peptic ulcer; Coronary arteriosclerosis (CMS/HCC); 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); Orthostatic hypotension; BronchitisStart: 06-76-5443Jcr-patient / Non-visitRobert Vaschak DO Work Phone: [facility] Card[facility] Work Phone: Start: 07-16-2024 End: 01-76-3638tedtzqwlqdYkqezlsoz E DoamekporFacility:[facility] Systemtart: 07-16-2024 End: 85-40-0870Jtfaledqip and management of inpatientRobert Vaschak DO Work Phone: [facility] Work Phone: Start: 07-16-2024 End: 66-70-2905cjrdchtxeag encounterRobert Vaschak DO Work Phone: [facility] Work Phone: Start: 07-13-2024 End: 47-22-2266C-mail encounter from Hollie TorresBaylor Scott [facility] FHCStart: 07-13-2024 End: 23-44-6060Kzibxcyut encounterGaye Mata RNDiBaylor Scott & White Medical Center – [facility] FHCComment on above:Omnipod DASH to 5 pump upgradeStart: 07-13-2024 End: 17-66-6229onftwcidejRdmexd Kravetz RNDiBaylor Scott & White Medical Center [facility] FHCStart: 07-13-2024 End: 50-84-8146Bkheuv follow up visit related to original pxFredric H Itzkowinahomy DO Work Phone: noms ST GENSComment on above:Abdominal wall abscess (Primary Dx)Start: 07-06-2024 End: 38-62-9866Rwritxygs encounterAyana Zavala APRN.CNP Work Phone: EndocrinologyStart: 07-06-2024 End: 10-83-8473ksxgkpkmulQBEAFQW BAYERFacility:[facility] Columbustart: 07-06-2024 End: 79-46-8315Xyixszg encounter Margaret Zavala APRN.CNP Work Phone: EndocrinologyComment on above: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, with long-term current use of insulin(HCC) (Primary Dx); 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); Insulin pump statusStart: 07-03-2024 End: 65-28-6993xxaljonpgqKMFBXY VARGAS VNot AvailableStart: 07-03-2024 End: 70-35-1718Ewhvht follow up visit related to original Charlotte Russo MD Work Phone: noms ST GENSComment on above:Abdominal wall abscess (Primary Dx)Start: 06-20-2024 End: 17-56-4870Exrtqcbn Result EncounterFredric H Itzkowitz DO Work Phone: noms External Department UnsolicitedStart: 06-20-2024 End: 00-37-8943Fouwnlvk Result EncounterFredric H Itzkowitz DO Work Phone: noms External Department UnsolicitedStart: 06-20-2024 Non-patient / Non-visitRobert Ileana DO Work Phone: [facility]-Heart Rhythm ClinicStart: 06-19-2024 End: 97-46-4585Kenailezjv and management of inpatientRobert Vasjorge DO Work Phone: [facility] Work Phone: Start: 06-19-2024 End: 66-46-9506sximafpglyCpwdkw JamakFacility:[facility] Systemtart: 06-19-2024 End: 67-85-9317Mfecad outpatient visit 40 minutesRobert Khoi Tejeda DO Work Phone: noms [facility] IMComment on above:Abscess of abdominal wall (Primary Dx); ICD (implantable cardioverter-defibrillator) in place; H/O splenectomy; 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); Chronic systolic CHF (congestive heart failure), NYHA class 2 (CMS/HCC); Acquired total absence of pancreasStart: 06-19-2024 End: 08-92-1380zildwnsggsMZLMMD Khoi RAPPot AvailableStart: 06-16-2024 End: 24-20-1259Yvelrkgelx and management of inpatientRobert Ileana DO Work Phone: [facility] Work Phone: Start: 05-30-2024 End: 98-58-2508Lugllswhtrgb care manage srvc 7 day dischargeRobert Khoi Tejeda DO Work Phone: noms [facility] IMComment on above:ICD (implantable cardioverter-defibrillator) in place (Primary Dx); Hospital discharge follow-up; 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); Acquired total absence of pancreas; Coronary arteriosclerosis (CMS/HCC); Insulin pump in place; 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); Moderate pulmonary arterial systolic hypertension (CMS/HCC); Nonrheumatic mitral valve regurgitation; Chronic systolic CHF (congestive heart failure), NYHA class 2 (CMS/HCC)Start: 05-30-2024 End: 38-67-3798qdzmxhhgykZBEIDW J JAMAKNot AvailableStart: 65-16-8044Iwk- patient / Non-visitRobert Vaschak DO Work Phone: [facility] Work Phone: Start: 05-24-2024 End: 72-67-5396Ndejdfblze and management of inpatientRobert Vaschak DO Work Phone: [facility] Work Phone: Start: 46-50-3599Wsz-patient / Non-visitRobert Vaschak DO Work Phone: [facility]-Heart Rhythm ClinicStart: 05-16-2024 End: 17-08-2182Csbfick encounter procedureDO Marie Tejeda Work Phone: [facility]-Pre-Surgical Testing Work Phone: Start: 05-16-2024 End: 98-04-7636nwytbszsabGZ Marie Tejeda Work Phone: [facility] Work Phone: Start: 64-01-2007Pktpfsanp for preprocedural laboratory examinationSPulaski Memorial Hospital Physician GroupStart: 05-10-2024 End: 44-18-9836bpinalxlewZO Marie Tejeda Work Phone: [facility] Work Phone: Start: 05-10-2024 End: 24-39-2107Wxrtnrt encounter procedureDO Marie Tejeda Work Phone: [facility] Work Phone: Start: 04-26-2024 End: 79-96-5734cjbmiyibtuRU Marie Tejeda Work Phone: [facility] Work Phone: Start: 04-26-2024 End: 13-84-7527Ocxbrqy encounter procedureDO Marie Tejeda Work Phone: [facility] Work Phone: Start: 04-26-2024 End: 15-10-4491Xclivva encounter procedureDO Marie Yunbrody Work Phone: [facility]-Heart Rhythm ClinicStart: 04-26-2024 End: 71-71-8913mrwdrelkjvCI Marie Tejeda Work Phone: [facility] Work Phone: Start: 04-24-2024 End: 48-03-6355Ngxbmu outpatient visit 25 minutesAnatoly Anne NP Work Phone: noms SWS IMComment on above:Pancreatic insufficiency (CMS/HCC) (Primary Dx); Coronary arteriosclerosis (CMS/HCC); 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 (CMS/HCC); 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); H pylori ulcerStart: 04-17-2024 End: 48-26-0189Eaipgf outpatient visit 40 minutesMarie Westfall Xavijorge CURTIS [...] systolic congestive heart failure (CMS/HCC)Start: 04-17-2024 End: 62-57-1490Igclyze encounter procedureRobert Khoi Tejeda DO Work Phone: noms HealthcareStart: 04-05-2024 End: 59-64-3778yuxjatsekvUSIGQMZHProMedica Memorial Hospital Start: 03-27-2024 End: 97-69-3728linlpsfmidZT Marie Tejeda Work Phone: [facility] Work Phone: Start: 03-27-2024 End: 70-13-5024Wqgehph encounter procedureDO Marie Tejeda Work Phone: [facility] Work Phone: Start: 03-15-2024 End: 06-82-9085txyqfrkqhyLL Marie Tejeda Work Phone: [facility] Work Phone: Start: 03-15-2024 End: 39-94-1774Lvwsgjy encounter procedureDO Marie Tejeda Work Phone: [facility] Work Phone: Start: 03-10-2024 End: 04-43-3944cdjkyvvaaiHG Marie Tejeda Work Phone: [facility] Work Phone: Start: 03-10-2024 End: 48-84-0511Fzpkbnpvoo RecurringDO Marie Tejeda Work Phone: [facility]-Infusion Therapy - O/P Work Phone: Start: 03-09-2024 End: 92-76-8476Lmbjlet encounter procedureDO Marie Tejeda Work Phone: [facility]-Electrodiagnostics Work Phone: Start: 03-09-2024 End: 27-09-6494lqyfazehkbNY Marie Tejeda Work Phone: [facility] Ctr Work Phone: Start: 94-75-0197Aad-patient / Non-visitDO Marie Xavijorge Work Phone: [facility] Work Phone: Start: 89-18-6388Riwuhjopcp RecurringDO Marie Hurleysunithabrody Work Phone: [facility] Ctr-Infusion Therapy - O/P Work Phone: Start: 02-29-2024 End: 89-99-8638lqloqrhrygTT Marie Hurleyjorge Work Phone: [facility] Work Phone: Start: 02-29-2024 End: 00-25-7537Bvssfax encounter procedureDO Marie Xavijorge Work Phone: [facility] Work Phone: Start: 02-16-2024 End: 43-44-8484gvfwnppqstSK Marie Tejeda Work Phone: [facility] Work Phone: Start: 02-16-2024 End: 77-85-8415Luwnvlp encounter procedureDO Marie Hurleysunithabrody Work Phone: [facility] Ctr-Lab [address] [place] Work Phone: Start: 02-15-2024 End: 98-95-6899izkmntquiaGZ Marie Hurleysunithabrody Work Phone: [facility] Work Phone: Start: 02-15-2024 End: 49-94-7649Vrgnien encounter procedureDO Marie Tejeda Work Phone: [facility] Work Phone: Start: 02-14-2024 End: 11-90-5645ahlzcmowxtQI Marie Xavijorge Work Phone: [facility] Work Phone: Start: 02-14-2024 End: 62-50-0651Vpmhjjm encounter procedureDO Marie Tejeda Work Phone: [facility] Ctr-Lab [place] Work Phone: Start: 02-11-2024 End: 21-99-0867hfpqhxsueoTX Marie Tejeda Work Phone: [facility] Ctr Work Phone: Start: 02-11-2024 End: 08-90-6352Mnputlh encounter procedureDO Marie Tejeda Work Phone: [facility] Ctr-Lab [address] [place] Work Phone: Start: 96-53-9461Dps-patient / Non-visitDO Marie Tejeda Work Phone: [facility] Work Phone: Start: 22-96-8841Sln-patient / Non-visitDO Marie Tejeda Work Phone: [facility] Work Phone: Start: 02-05-2024 End: 18-84-3441Brlcimowxf and management of inpatientDO Marie Tejeda Work Phone: [facility] Ctr-3 [facility] Work Phone: Start: 01-24-2024 End: 27-74-0367wmzpsdjtedWNSQ D BROOKENSProMedica Perrysville HospitalStart: 01-21-2024 End: 81-26-9306Odncvsxehh and management of inpatientVENU GOSCOTTA Светлана EUCEDANA [facility] HospitalStart: 12-28-2023 End: 42-87-4561Kmlcmgsvq Result EncounterGeneric External Data ProviderNOMS External Department UnsolicitedStart: 12-28-2023 End: 40-13-8186Uxzihszlw Result EncounterGeneric External Data ProviderNOMS External Department UnsolicitedStart: 76-82-7515Vdx-patient / Non-visitDO Marie Hurleyjorge Work Phone: [facility] Work Phone: Start: 11-11-2023 End: 68-27-2269Sugfyukeg to same day surgery centerDO Marie Hurleyjorge Work Phone: [facility]-Digestive [facility] Work Phone: Start: 11-04-2023 End: 86-88-6415ufovkhqyncBatm ProviderFacility:[facility] Hospital[facility]art: 10-28-2023 End: 90-58-5793zduoeixbpnEG Marie Tejeda Work Phone: [facility] Work Phone: Start: 10-28-2023 End: 33-63-0341Ioixyol encounter procedureDO Marie Yunbrody Work Phone: [facility] Work Phone: Start: 10-21-2023 End: 46-39-1438xtjaonrygjUJ Marie Tejeda Work Phone: [facility] Work Phone: Start: 10-21-2023 End: 47-79-5552Txpilqq encounter procedureDO Marie Tejeda Work Phone: [facility] Work Phone: Start: 10-13-2023 End: 15-00-2154wxvywxbeuxVxkk ProviderFacility:[facility] Hospitaltart: 09-28-2023 End: 44-21-1762rwnoemevueDW Marie Yunbrody Work Phone: [facility] Work Phone: Start: 09-28-2023 End: 23-95-4889Diwqvhm encounter procedureDO Marie Yunbrody Work Phone: [facility] Neuro[facility] Work Phone: start: 09-27-2023 End: 36-01-7839vjxrplgxcgTY Marie Tejeda Work Phone: [facility]tr Work Phone: Start: 09-27-2023 End: 19-87-0725Wvgwshtmzi RecurringDO Marie Tejeda Work Phone: [facility] Ctr-Infusion Therapy - O/P Work Phone: Start: 09-24-2023 End: 67-35-3812obuupwdeytDD Marie Tejeda Work Phone: [facility] Ctr Work Phone: Start: 09-24-2023 End: 45-15-3060Ddhcapz encounter procedureDO Marie Tejeda Work Phone: [facility] Ctr-XRay [place] Work Phone: Start: 24-23-3250Qpt-patient / Non-visitDO Marie Tejeda Work Phone: [facility] Work Phone: Start: 83-60-3069Qxq-patient / Non-visitDO Marie Tejeda Work Phone: [facility] Work Phone: Start: 08-31-2023 End: 49-68-2238Swipeqnmlm and management of inpatientDO Marie Tejeda Work Phone: [facility] Ctr-4 [facility] Work Phone: Start: 08-16-2023 End: 22-77-8533peshcmqkawHCTTO K SMITHWaltham [employer] Other Start: 08-16-2023 End: 55-04-0164Rctaef outpatient visit 15 minutesSammy Berman MED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-MOTOR ROOM CONTROLLER Work Phone: uh [facility] medical centerComment on above:Cardiomyopathy, ischemic (Primary Dx); ASHD (arteriosclerotic heart disease); BMI 20.0-20.9, adult; OrthopneaStart: 58-46-0341Qdgnxeuqo encounterLinda NjorogeFPG CardiologyStart: 07-27-2023 End: 72-63-8390juhvlmeplnHG Marie Hurleyjorge Work Phone: [facility] Work Phone: Start: 07-27-2023 End: 03-60-2695Rgialye encounter procedureDO Marie Yunbrody Work Phone: [facility] Ctr-XRay [facility] Start: 07-16-2023 End: 28-07-7085Apdfewqlc to same day surgery centerDO Marie Hurleyjorge Work Phone: [facility] Ctr-[employer] Work Phone: Start: 07-16-2023 End: 76-73-7401ugcrwsggshDD Marie Hurleyjorge Work Phone: [facility] Ctr Work Phone: Start: 06-23-2023 End: 18-97-7867romkuojilpIHMIQ [facility] AmbulatoryStart: 06-22-2023 End: 28-10-7332eauzschfwfNxapiln Howie Other [facility] [employer] Other Start: 92-43-5783Euooaxqru encounterColleen [facility]opedicsStart: 06-11-2023 End: 65-26-1223juincfnemqBL Marie Tejeda Work Phone: [facility] C[facility] Work Phone: Start: 06-11-2023 End: 13-40-5497Mqawuux encounter procedureDO Marie Yunbrody Work Phone: [facility] Ctr-XRay [place] [facility] Start: 06-02-2023 End: 76-52-5470stqifqshysVKIRMMB PROVIDERFacility:METROHealthStart: 05-26-2023 Telephone encounterColljace [facility] OrthopedicsStart: 05-26-2023 End: 85-29-3243tbpmkauaatHZ Marie Tejeda Work Phone: [facility] Ctr Work Phone: Start: 05-26-2023 End: 53-62-9178Tunvcwo encounter procedureDO Marie Tejeda Work Phone: [facility] Ctr-XRay [facility] Start: 05-25-2023 End: 33-48-8544nktfgqybecLCTQLNWHavenwyck Hospital AmbulatoryStart: 05-25-2023 End: 14-82-0961Eoalqk consultation new/estab patient 62 [address] [facility] Work Phone: [facility] County HospitalComment on above:NSTEMI (non-ST elevated myocardial infarction) (CMS/HCC) (Primary Dx); Abnormal stress test; ASHD (arteriosclerotic heart disease); Essential hypertension; Diabetes mellitus type II, non insulin dependent (CMS/HCC); Closed fracture of right hip, initial encounter (CMS/HCC)Start: 05-21-2023 End: 57-02-5969mntgpgqemkYgosuvx [place] Other [place] [employer] Other Start: 50-02-9315Apppgh follow up visit related to original pxCotrent [facility] OrthopedicsStart: 05-21-2023 End: 33-48-8826Pgztpke encounter procedureDO Marie Tejeda Work Phone: [facility] Ctr-XRay [place] [facility] Start: 05-03-2023 End: 52-02-1594Ayjlpukmhe and management of inpatientDO Marie Tejeda Work Phone: [facility] Ctr-5 [facility] Work Phone: Start: 04-28-2023 End: 44-64-7881Hajkpjtnml and management of inpatientDO Marie Tejeda Work Phone: [facility] Ctr-4 [facility] Work Phone: Start: 04-23-2023 End: 13-16-1505bprkocphzzSqdh ProviderFacility:[facility] Hospitaltart: 04-12-2023 End: 78-25-9782Pgvdmopjm Result EncounterGeneric External Data ProviderNOMS External Department UnsolicitedStart: 04-12-2023 End: 26-09-9974Ihrreuueu Result EncounterGeneric External Data ProviderNOMS External Department UnsolicitedStart: 01-20-2023 End: 98-01-7355Gbccdge encounter procedureAnatoly Anne PASSENGER BRAKEMAN Work Phone: [facility] HealthcareStart: 06-05-2022 End: 24-38-0285nesfemfuttWC MARIE XAVIAULTMAN ORRVILLE HOSPITALFacility:Q4Mmmdf: 53-38-1565Rzviukotr for other specified special examinationsDR [facility] Start: 05-14-2022 End: 64-56-5409homiqtvzyuJZ MARIE [facility] Southeast Texascility:S5Mqovw: 05-14-2022 End: 05-71-8370Wgkuteqpd for other specified special examinationsDR [facility] Hospitalcility:R9Tmpji: 01-02-2022 End: 21-29-6843Msxkhkmnyu and management of inpatientDELON CARRIONLutheran Hospitaltart: 01-02-2022 End: 30-94-3943Ivvtafkrqb and management of inpatientGray Ross MD Work Phone: stVZ 4B StepdownComment on above:Acute gastric ulcer with perforation (HCC) (Primary Dx); Gastric perforation (HCC)Start: 01-02-2022 End: 41-51-0747djprtfuhkfRT BENJAMIN BALLFacility:H1 Procedures DateProcedureProcedure DetailPerforming ClinicianStart: 82-70-5848HWRWxlmzdd External Data ProviderStart: 92-95-0534JHNVmpjqqs External Data ProviderStart: 53-49-0890LYT GLUCOSE P FAST SERPL-MCNCGeneric External Data ProviderStart: 00-18-5231KFQ PRO BNPGeneric External Data ProviderStart: 44-65-6400GID CMP (CMP) (FOR REMOTE [facility] USE)Generic External Data ProviderStart: 02-13-2025 GLUTAMIC AC DECARBOXYLASE ABAyana Zavala APRN.MOTOR ROOM CONTROLLER Work Phone: Start: 32-34-2732DRP HEMOGLOBIN O6EMcfgadt External Data ProviderStart: 70-58-0437VIR GLUCOSE BLOODGeneric External Data Provider Start: 14-65-7885Dzlwaawvjk bloodRobert J Vaschak DO Work Phone: Start: 30-76-5744Eygxmhzlha A1c/Hemoglobin.total in Kassidy Zavala APRN.MOTOR ROOM CONTROLLER Work Phone: Start: 15-27-0596LDI BASIC METABOLIC PANELGeneric External Data ProviderStart: 73-89-0067VHJ PRO BNPGeneric External Data Provider Start: 56-17-6339EVU BASIC METABOLIC PANELGeneric External Data ProviderStart: 40-40-9921VGA PRO BNPGeneric External Data ProviderStart: 35-87-7763UTH BASIC METABOLIC PANELGeneric External Data ProviderStart: 85-38-6023Lcimekgvkyd Panel (PCR)Marie Vassunithak DO Work Phone: Start: 54-69-9958RF angiography of thoraxRobert Vaschak DO Work Phone: Start: 73-31-8028Aiwcd chest X-rayRobert Vassunithak DO Work Phone: Start: 29-26-7034Etfx bld gluc mntr dev cleared fda spec home useKirsrosy Zavala APRN.MOTOR ROOM CONTROLLER Work Phone: Start: 86-77-3602FDLGHK ON DEMANDCcf ProviderStart: 86-56-0474Uiwmaccwcg A1c/Hemoglobin.total in Kassdiy Zavala APRN.MOTOR ROOM CONTROLLER Work Phone: Start: 40-45-0635JusvfgqvhacCugvkl Vassunithak DO Work Phone: Start: 78-60-9157Yvmxenc microbial cultureRobert Vassunithak DO Work Phone: Start: 41-98-2446Qzrxsasml microbial cultureRobert Vassunithak DO Work Phone: Start: 66-51-5171Ipcp stain microscopyRobert Vassunithak DO Work Phone: Start: 09-77-3647JWBGVRT CULTUREFredric H Itzkowitz DO Work Phone: Start: 03-33-7741EXYBNZOGO CULTUREFredric H Itzkowitz DO Work Phone: Start: 33-25-5307Sxcmebo microbial cultureRobert Jamak DO Work Phone: Start: 03-32-0475Uokrksta identified in Blood by CultureRobert Vassunithak DO Work Phone: start: 88-87-5217ZN of abdomen with contrastRobert Ileana DO Work Phone: Start: 71-48-2710Cxrdr chest X-rayRobert Ileana DO Work Phone: Start: 95-86-1005Vazvuxhvbwgz of cardiac pacemaker Marie Tejeda DO Work Phone: Start: 34-16-8558Jmfxggjndc glycosylated y7tXriqps Khoi Tejeda DO Work Phone: Start: 78-90-9789TkwvtmfbipfrgvpprrcznelvmqSD Marie Tejeda Work Phone: Start: 14-14-6398PC cervical spine without contrastDO Marie Tejeda Work Phone: Start: 85-65-4617UO of head without contrastDO Marie Tejeda Work Phone: Start: 77-78-5047Uewbd chest X-rayDO Marie Tejeda Work Phone: Start: 78-43-6755Cdnfr Occult Blood (DORON)DO Marie Tejeda Work Phone: Start: 93-10-1772Jaq spinal canal cervical w/o contrast matrlGeneric External Data ProviderStart: 11-11-2023 EsophagogastroduodenoscopyDO Marie Tejeda Work Phone: Start: 51-12-0376G-ray of cervical spineDO Marie Tejeda Work Phone: Start: 29-67-8050V-ray of cervical spineDO Marie Tejeda Work Phone: Start: 69-43-2052XLLPTM UP IN CARDIOLOGYLAHEY HOSPITAL & MEDICAL CENTER SHELDONStart: 80-72-5197Njtnz X-ray of right hipDO Marie Tejeda Work Phone: Start: 98-19-0348EX PCI ADMINISTRATIVE SALES ASSISTANT Ea Add LADDO Marie Tejeda Work Phone: Start: 64-81-1624DE Stent 1st Vessel LAD DESDO Marie Tejeda Work Phone: Start: 08-99-2119OJCVLG UP IN CARDIOLOGYLAHEY HOSPITAL & MEDICAL CENTER SHELDONStart: 76-09-3205Cqrlz X-ray of right femurDO Marie Tejeda Work Phone: Start: 04-67-7661RRQ 12-LEADLAHEY HOSPITAL & MEDICAL CENTER SHELDONStart: 09-73-6348Yii routine ecg w/least 12 lds w/i&rWilliam S Ryan DO Work Phone: Start: 61-67-0935Pvxyb X-ray of right hipDO Marie Tejeda Work Phone: Start: 04-30-2023 End: 92-28-1386Sjdxq X-ray of right hipDO Marie Tejeda Work Phone: Start: 18-36-2959Udup reduction of fracture with internal fixationDO Marie Tejeda Work Phone: Start: 79-86-7284Gtcvu chest X-rayDO Marie Tejeda Work Phone: Start: 79-12-4588KH LHC & COR AngioDO Marie Tejeda Work Phone: Start: 67-06-4576Adse reduction of fracture with internal fixationDO Marie Tejeda Work Phone: Start: 03-10-1673Zgktc chest X-rayDO Marie Tejeda Work Phone: Start: 98-06-6048Dmyhq X-ray of right femurDO Marie Tejeda Work Phone: Start: 66-17-4229Tzwwq X-ray of right hipDO Marie Tejeda Work Phone: Start: 57-27-2003OF RENAL AND BLADDERGeneric External Data ProviderStart: 26-86-4493Usqis of magnesiumBreana Johnson MD Work Phone: Start: 66-42-3161LXSCF METABOLIC PANEL W/ REFLEX TO MG FOR LOW KMatthew T Slack DO Work Phone: Start: 82-94-0534VGFXGKHO PLATELET FRACTIONBreana Johnson MD Work Phone: Start: 95-51-2461Anojh of phosphorus inorganicMatthew T Slack DO Work Phone: Start: 08-04-5878GCCZN METABOLIC PANEL W/ REFLEX TO MG FOR LOW KMatthew T Slack DO Work Phone: Start: 54-09-1096KAKIIOXH PLATELET FRACTIONBreana Johnson MD Work Phone: Start: 93-53-3224Xbnvugojpn exam upr gi trc single contrast Jose Johnson MD Work Phone: Start: 81-19-4205Irlbd of magnesiumKings Francis MD Work Phone: Start: 21-44-1362IJJDW METABOLIC PANEL W/ REFLEX TO MG FOR LOW KAarocayla Francis MD Work Phone: Start: 08-18-2804RVKLYQEM PLATELET FRACTIONBreana Johnson MD Work Phone: Start: 49-03-5254Wfhlf of magnesiumAaron N Andrea OGLESBY Work Phone: Start: 90-92-3996WDYFC METABOLIC PANEL W/ REFLEX TO MG FOR LOW KAaron N Andrea OGLESBY Work Phone: Start: 48-56-6820Zseag of phosphorus inorganicKings Francis MD Work Phone: Start: 56-39-3176VVZWT METABOLIC PANEL W/ REFLEX TO MG FOR LOW KAaron N Andrea OGLESBY Work Phone: Start: 84-79-0605Dlmsd of magnesiumAaron Cayla Francis MD Work Phone: Start: 76-36-2736KYKMB METABOLIC PANEL W/ REFLEX TO MG FOR LOW KAaron N Andrea OGLESBY Work Phone: Start: 45-61-3864Quxiw of phosphorus inorganicAaron N Andrea OGLESBY Work Phone: Start: 99-85-4646FEFBU METABOLIC PANEL W/ REFLEX TO MG FOR LOW KAaron N Andrea OGLESBY Work Phone: Start: 01-04-2022 End: 09-15-1529Agmux of phosphorus inorganicAaron N Andrea OGLESBY Work Phone: Start: 88-41-0936VGIJX METABOLIC PANEL W/ REFLEX TO MG FOR LOW KAaron N Andrea OGLESBY Work Phone: Start: 75-28-0640Gtjutay blood reagent stripDelon Carrion DOStart: 01-04-2022 End: 47-02-8727Oqtdz of phosphorus inorganicAaron Cayla Francis MD Work Phone: Start: 94-31-5530YESQZ METABOLIC PANEL W/ REFLEX TO MG FOR LOW KAaron N Andrea OGLESBY Work Phone: Start: 01-03-2022 End: 21-14-4737Heygm of phosphorus inorganicAaron Cayla Francis MD Work Phone: Start: 80-85-5348RIPPJ METABOLIC PANEL W/ REFLEX TO MG FOR LOW KAaron N Andrea OGLESBY Work Phone: Start: 01-03-2022 End: 04-91-0535Hrjymcq blood reagent stripDelon Carrion DOStart: 01-03-2022 Glucose blood reagent stripDelon Carrion DOStart: 01-03-2022 End: 11-90-0604Eubrh of phosphorus Jung Francis MD Work Phone: Start: 74-56-9107RNYZU METABOLIC PANEL W/ REFLEX TO MG FOR LOW Jessicacayla Francis MD Work Phone: Start: 01-03-2022 End: 46-79-4550Bbrvrej blood reagent stripDelon Carrion DOStart: 01-03-2022 Glucose blood reagent stripDelon Carrion DOStart: 01-03-2022 End: 56-83-2392Qvtgf of phosphorus Jung Francis MD Work Phone: Start: 50-28-9763FWCUT METABOLIC PANEL W/ REFLEX TO MG FOR LOW Palmira Francis MD Work Phone: Start: 01-03-2022 End: 23-96-4705Izfnv of phosphorus Jung Francis MD Work Phone: start: 25-50-9842ARZYI METABOLIC PANEL W/ REFLEX TO MG FOR LOW KISHANmilena Francis MD Work Phone: Start: 01-03-2022 End: 98-98-6779Fhcciuz blood reagent stripDelon Carrion DOStart: 01-03-2022 End: 70-23-8425Xdxts of phosphorus Jung Francis MD Work Phone: Start: 39-06-6749SRNQC METABOLIC PANEL W/ REFLEX TO MG FOR LOW KISHANmilena Francis MD Work Phone: Start: 01-03-2022 End: 21-18-0863Ddfnnpt blood reagent stripDelon Carrion DOStart: 01-02-2022 Glucose blood reagent stripDelon Carrion DOStart: 01-02-2022 End: 35-59-3772Bloqbqj blood reagent stripJohn J Leskovan DOStart: 01-02-2022 Radiologic exam abdomen 1 viewTricia Ange DOStart: 54-61-0689Cupblnp bacterial quanttative colony count urineTristan Bueno DO Work Phone: Start: 01-02-2022 End: 36-70-0213Eqiabjt blood reagent stripDelon Carrion DOStart: 01-02-2022 End: 12-16-1965QFDHC RESECTION HEMICOLECTOMY LAPAROSCOPIC ROBOTICTristan Bueno DO Work Phone: Start: 01-02-2022 End: 83-52-6716EFR DIAGNOSTIC ONLYTristan Bueno DO Work Phone: Start: 12-29-2465Yahmv metabolic panel calcium total Breana Johnson MD Work Phone: Start: 88-01-2777Otexuxx function panelBreana Johnson MD Work Phone: Start: 97-04-7100CANQUQT, SEPSISJumarianne Johnson MD Work Phone: Start: 68-66-6667Opnfozw blood reagent stripGray Ross MD Work Phone: Start: 12-30-2019H/O splenectomyH/O splenectomyYuerong Cally PASSENGER BRAKEMAN Work Phone: AppendectomyTristan MELCHOR Cardiac pacemaker, device (physical object)Tristan MELCHOR Extraction of cataractTristan MELCHOR H/O splenectomyH/O splenectomyRobert J Vaschak DO Work Phone: H/O splenectomyH/O splenectomyRobert J Vaschak DO Work Phone: H/O splenectomyH/O splenectomyRobert J Vaschak DO Work Phone: H/O splenectomyWalkerory JULIO H/O splenectomyH/O splenectomyAmy Warchol PASSENGER BRAKEMAN Work Phone: PancreatectomyTristan MELCHOR Placement of stent in cardiac conduitTristan MELCHOR TonsillectomyTristan MELCHOR Plan of Treatment DateCare ActivityDetailAuthorStart: 28-79-0826Xxehe microalbumin profile DTaP,Tdap,Td Vaccine (4 - Td or Tdap)[facility] 03-[facility]2028 DTaP/Tdap/Td vaccine (3 - Td or Tdap)DTaP/Tdap/Td vaccine (3 - Td or Tdap)[facility]ITALStart: 56-59-7328JLnL/Tdap/Td Vaccines (3 - Td or Tdap) DTaP/Tdap/Td Vaccines (3 - Td or Tdap)[facility]Start: 40-53-6916Yfvbeaqs ScreeningDiabetes ScreeningCleveland Clinic Lutheran Hospitaltart: 09-25-2025 Hepatitis B screeningUrine Albumin:Creatinine RatioCleveland Clinic Lutheran Hospitaltart: 32-16-0860Hihvicjru B surface antibody levelLDL CholesterolAshtabula County Medical Center Start: 01-83-0205Uoqzc screening for proteinDiabetes: Urine Protein Screening [facility] HealthcareStart: 05-86-5085Ngeixudtqj A1c measurementDiabetes: Hemoglobin F7KACDV HealthcareStart: 06-21-2025 End: 78-94-4889Nosxczs encounter fsvjkuwdj78/11/2025 1:00 PM EST Office Visit [facility] [address] [place] [address] Marga Robledo NP [address] [place] [address] [facility] MedicineStart: 10-07-2025Medicare Annual Wellness (AWV)Medicare Annual Wellness (AWV)[facility] HealthcareStart: 04-09-2025 End: 73-68-1919Kmfrjqg encounter plcukkyae10/29/2025 2:00 PM EDT Office Visit Endocrinology [address] [place], [place] [id number] Ayana Zavala APRN.MOTOR ROOM CONTROLLER [address] [place] [address] *R/S from 01/25EndocrinologyComment on above:*R/S from 01/25Start: 01-30-3982AvomhmgLakeHealth [facility] Work Phone: Start: 24-14-2684QMCPF-19 Vaccine ( season) COVID-19 Vaccine ( season)[facility] HealthcareStart: 75-96-9620Fvxcznuor vaccinationInfluenza Vaccine (#1)[facility] HealthcareStart: 02-06-2025 End: 79-04-7707Ycqwxnbeu decarboxylase 65 Ab [Units/volume] in SerumGLUTAMIC AC DECARBOXYLASE AB Lab Routine 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, with long-term current use of insulin ([facility]) Expected: 02/06/2025, Expires: 05/08/2025[facility] HospitalComment on above:Expected: 02/06/2025, Expires: 05/08/2025Start: 02-06-2025 End: 98-43-2505Lcuywbmlju A1c in BloodHEMOGLOBIN A1C Lab Routine 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, with long-term current use of insulin (HCC) Expected: 02/06/2025, Expires: 05/08/2025[facility] Work Phone: Comment on above:Expected: 02/06/2025, Expires: 05/08/2025Start: 02-05-2025 End: 05-07-2025 peptide [Mass/volume] in Serum or PlasmaC-PEPTIDE BLD Lab Routine 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, with long-term current use of insulin (HCC) Expected: 02/05/2025, Expires: 05/07/2025 [facility] CenterComment on above:Expected: 02/05/2025, Expires: 05/07/2025Start: 02-05-2025 End: 56-12-0812Vdqdmsn glucose [Mass/volume] in Serum or PlasmaGLUCOSE, FASTING Lab Routine 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, with long-term current use of insulin (HCC) Expected: 02/05/2025, Expires: 05/07/2025 [facility] Work Phone: Comment on above:Expected: 02/05/2025, Expires: 05/07/2025Start: 63-47-2601Vlgnbthppq A1c measurementCleveland Clinic Lutheran Hospitaltart: 01-25-2025 End: 58-64-0001Cfcvgmx encounter suqjisosv30/17/2025 2:00 PM EDT Office Visit Endocrinology [address] [facility] [place] [address] Ayana Zavala, MED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.MOTOR ROOM CONTROLLER [address] [place] [address] 2 month follow up DMEndocrinologyComment on above:2 month follow up DMStart: 01-16-2025 End: 90-19-7775Ljdituuiuqtd / ancillary services hwgzqzcqoj38/08/2025 11:30 AM EDT Ancillary Procedure [facility] [address] [place] [address] [address]Start: 01-03-2025 End: 16-65-5569Ynxrbgeeay [Mass/volume] in Serum or PlasmaCreatinine, Serum Lab Routine Pleurisy Expected: 01/03/2025 (Approximate), Expires: 01/03/2026[facility] HealthcareComment on above:Expected: 01/03/2025 (Approximate), Expires: 01/03/2026Start: 01-03-2025 End: 78-31-8311OYG Chest vessels WO and W contrast IVCT angiogram chest Imaging Routine Pleurisy Expected: 01/03/2025 (Approximate), Expires: 04/05/2025[facility] Work Phone: Comment on above:Expected: 01/03/2025 (Approximate), Expires: 04/05/2025Start: 64-42-6432Sagfbidx screeningDiabetes: Retinopathy ScreeningLAKEVIEW HOSPITAL HealthcareStart: 95-91-4124Ysskt-19 Vaccine ( season) Covid-19 Vaccine ( season)[facility]: 10-26-2024 End: 63-16-9433Fsxaznu encounter oausgmffg71/17/2025 12:15 PM EDT Office Visit Endocrinology [address] [facility] [place] [address] Ayana Zavala, MED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.MOTOR ROOM CONTROLLER [address] [place] [address] Return in about 4 weeks (around 10/23/2024). EndocrinologyComment on above:Return in about 4 weeks (around 10/23/2024).Start: 81-25-8413Ybarsnjqfs A1c measurementHarry S. Truman Memorial Veterans' HospitalStart: 09-25-2024 End: 38-63-0310Mqmfikq encounter fusulinjt10/17/2025 2:30 PM EDT Office Visit Endocrinology [address] [facility] [place] [place] [address] Ayana Zavala, MED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.MOTOR ROOM CONTROLLER [address] [place] [address] Return in about 6 weeks (around 08/17/2024). EndocrinologyComment on above:Return in about 6 weeks (around 08/17/2024).Start: 09-25-2024 End: 74-09-0680Jyvkjenautssw metabolic 2000 panel - Serum or PlasmaCleveland Clinic Hillcrest Hospital Work Phone: Comment on above:Expected: 09/25/2024, Expires: 12/25/2024Start: 09-25-2024 End: 04-01-9384TTJPB PANEL, NONFASTINGAshtabula County Medical CenterComment on above:Expected: 09/25/2024, Expires: 12/25/2024Start: 09-25-2024 End: 29-35-1700Kxqfknxxgthx/Creatinine [Mass Ratio] in UrineAshtabula County Medical Center Comment on above:Expected: 09/25/2024, Expires: 12/25/2024Start: 07-42-6515Zxnhh screening for proteinDiabetes: Urine Protein ScreeningHarry S. Truman Memorial Veterans' HospitalStart: 09-04-2024 End: 21-23-8485Prqdove evaluation of patient and ytcugq8509/04/2024 1:00 PM EST Nurse Visit [facility] [address] [place] [address] Gaye Mata, KARIN Omnipod DASH to Omnipod 5 upgrade with Dexcom G7 trainingDiBaylor Scott & White Medical Center – HillcrestCComment on above:Omnipod DASH to Omnipod 5 upgrade with Dexcom G7 trainingStart: 08-29-2024 End: 66-34-3251Klvudxk encounter umekbsajq72/18/2025 1:30 PM EST Office Visit Endocrinology [address] [place] [address] Ayana Zavala, AMADA.MOTOR ROOM CONTROLLER [address] [place] [address] Return in about 6 weeks (around 08/17/2024). EndocrinologyComment on above:Return in about 6 weeks (around 08/17/2024).Start: 08-18-2024 End: 67-59-3987Mtckpql encounter czumyrrtp54/07/2025 8:30 AM EST Office Visit Endocrinology [address] [place] [address] Ayana Zavala, MED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.MOTOR ROOM CONTROLLER [address] [place] [address] Return in about 6 weeks (around 08/17/2024). EndocrinologyComment on above:Return in about 6 weeks (around 08/17/2024).Start: 08-02-2024 End: 12-12-1479Cqbeisx encounter yganrptba74/22/2025 10:00 AM EST Office Visit [facility] [address] [place] [phone] Marie Tejeda DO [address] [place] [address] [facility] IMStart: 07-25-2024 End: 60-08-6062Izmxmow evaluation of patient and bsbqyi6107/25/2024 1:00 PM EST Nurse Visit [facility] [address] [place] [address] Gaye Mata, RN Omnipod 5 upgrade from Micronotes with Dexcom G6 CGM. Needs carb counting. Coming from [place], [place] with Diabetic [facility] FHCComment on above:Omnipod 5 upgrade from Micronotes with Dexcom G6 CGM. Needs carb counting. Coming from [place] with Start: 07-20-2024 End: 61-76-0596Rspdo metabolic 1998 panel - Serum or PlasmaBasic metabolic panel Lab Routine Chronic systolic CHF (congestive heart failure), NYHA class 2 ([facility]) Expected: 07/20/2024 (Approximate), Expires: 07/24/2024NOBarn[facility]-Jewish [facility] Work Phone: Comment on above:Expected: 07/20/2024 (Approximate), Expires: 07/24/2024Start: 09-46-9834Agtqzuqxyv A1c measurementDiabetes: Hemoglobin B1VGIGAHarry S. Truman Memorial Veterans' HospitalStart: 07-17-2024 End: 70-57-1329MygjcimpxOhio State Health Systemtart: 84-34-6297Nuxxhbng to cardiologistOhio State Health Systemtart: 08-31-4321Ubkjctecaqt pathogens DNA and RNA panel - Nasopharynx by ANASTASIA with non-probe detection [facility] Systemtart: 11-83-0117Tyfhaxzq therapy procedure [facility]: 77-17-7914Faiqrhyt to occupational therapistOhio State Health Systemtart: 09-17-4786KkdrhuxqbOhio State Health Systemtart: 11-13-3338Tkzjivgv admissionOhio State Health Systemtart: 07-13-2024 End: 05-88-8625Mkgcrgi encounter lidvsdjkn93/02/2025 10:45 AM EST Office Visit NETO ESPINOSA [address] [facility] [address] [place] [phone] Stephanie Sheridan DO [address] [facility] [address] [place] [address] NOMKasey NAIKtart: 82-27-5394Tfeusuc Directive DiscussionAdvance Directive DiscussionCleveland Clinic Lutheran Hospitaltart: 07-03-2024 End: 12-65-1495Ziwinzw encounter hidekxcic92/23/2024 9:00 AM EST Office Visit [facility] [address] [place] [address] Beto Russo MD [address] [place] [address] ALDRICHtart: 21-80-9907JbgpwggxfCleveland Clinic Hillcrest Hospital Start: 83-80-0355Trrisotv to general surgeonCleveland Clinic Hillcrest Hospital Start: 82-34-9474Kjwpflxg admissionOhio State Health Systemtart: 06-19-2024 End: 45-51-7811Oiznhsi encounter efonxrsno02/09/2024 3:00 PM EST Office Visit [facility] [address] [place] [phone] Marie Tejeda DO [address] [place] [address] [facility] IMStart: 06-18-2024 End: 61-45-1760NmeemjlhfOhio State Health Systemtart: 73-33-1669NpqibarykOhio State Health Systemtart: 32-95-9881Pimxhrgd admissionOhio State Health Systemtart: 52-82-9491Vpplmtcg to infectious diseases physician [facility]tart: 11-00-2371Zxehddtd of Abdomen Subcutaneous Tissue and Fascia, Open ApproachDrainage of Abdomen Subcutaneous Tissue and Fascia, Open ApproachOhio State Health Systemtart: 41-22-7595PoxtgdswwOhio State Health Systemtart: 58-95-0084Taxnomrn admission [facility] Systemtart: 28-83-6756YjiqnuhyeOhio State Health Systemtart: 89-76-5296MnjcfytcdK[facility] CenterStart: 05-24-2024 Insertion of Defibrillator Generator into Chest Subcutaneous Tissue and Fascia, Open ApproachInsertion of Defibrillator Generator into Chest Subcutaneous Tissue and Fascia, Open ApproachOhio State Health Systemtart: 05-24-2024 Insertion of Defibrillator Lead into Right Atrium, Percutaneous Approach Insertion of Defibrillator Lead into Right Atrium, Percutaneous Approach [facility]tart: 05-25-1382Umvfxarkz of Defibrillator Lead into Right Ventricle, Percutaneous ApproachInsertion of Defibrillator Lead into Right Ventricle, Percutaneous ApproachCleveland Clinic Hillcrest Hospital Start: 01-96-8093MvxhfjayzOhio State Health Systemtart: 63-91-5000ZixztyjycOhio State Health Systemtart: 94-83-6940Vxmqevbe to gastroenterologistOhio State Health Systemtart: 27-00-2974Fzierafa admissionOhio State Health Systemtart: 47-87-3190NU cervical spine without contrastCT cervical spine wo [facility] Hospitaltart: 94-59-4724VO Cervical spine WO contrastOhio State Health Systemtart: 54-94-3156JY of head without contrastCT head/brain wo [facility] Hospitaltart: 26-69-7440XL Unspecified body region WO [facility]ertart: 69-42-1576Gtlnp chest X-rayXR chest 1V portableCleveland Clinic Hillcrest Hospital Start: 04-40-5891DU Chest Single viewOhio State Health Systemtart: 18-22-7541Stglqel Bleeding in Gastrointestinal Tract, Via Natural or Artificial Opening EndoscopicControl Bleeding in Gastrointestinal Tract, Via Natural or Artificial Opening EndoscopicKettering Health – [facility] Center CenterStart: 11-11-2023 [facility] CenterStart: 81-36-5422FjkcqtvcbKettering Health – So[facility] Medical Center CenterStart: 49-67-9071Ejrgrqrg to rehabilitation physicianOhio State Health Systemtart: 28-37-9486Ztysgffk admissionOhio State Health Systemtart: 75-87-2741OuhgehhjdmwdXycidovpuOhio State Health Systemtart: 88-11-2063Ikwflead to gastroenterOhio State University Wexner Medical Centertart: 83-45-3219Fwsdytm Bleeding in Gastrointestinal Tract, Via Natural or Artificial Opening EndoscopicControl Bleeding in Gastrointestinal Tract, Via Natural or Artificial Opening EndoscopicOhio State Health Systemtart: 08-31-2023 Excision of Esophagus, Via Natural or Artificial Opening Endoscopic, Diagnostic Excision of Esophagus, Via Natural or Artificial Opening Endoscopic, Diagnostic [facility]tart: 67-94-5184Owpjjbup of Stomach, Pylorus, Via Natural or Artificial Opening Endoscopic, DiagnosticExcision of Stomach, Pylorus, Via Natural or Artificial Opening Endoscopic, DiagnosticOhio State Health Systemtart: 08-16-2023 End: 59-09-4250Gtwic metabolic 2000 panel - Serum or PlasmaBasic Metabolic Panel Lab Routine Cardiomyopathy, ischemic Expected: 08/16/2023 (Approximate), Expir es: 08/16/2024[facility] Work Phone: Comment on above:Expected: 08/16/2023 (Approximate), Expires: 08/16/2024Start: 08-16-2023 End: 14-89-5833Thwtssbubnt peptide B [Mass/volume] in BloodB-Type Natriuretic Peptide Lab Routine Cardiomyopathy, ischemic Orthopnea Expected: 08/16/2023 (Approximate), Expires: 08/16/2024[facility] Service Area Work Phone: Comment on above:Expected: 08/16/2023 (Approximate), Expires: 08/16/2024Start: 07-16-2023 End: 27-85-8532CmdzasscqOhio State Health Systemtart: 06-87-1697PUBVD-19 Vaccine (3 - Moderna series)COVID-19 Vaccine (3 - Moderna series)[facility]Start: 11-50-3299Vcfblbi Directive DiscussionAdvance Directive DiscussionCleveland Clinic Lutheran Hospitaltart: 06-23-2023 End: 38-40-4405Prqwqnv encounter lataxdsds14/13/2023 2:00 PM EST Office Visit [facility] [address] [facility] [address] [place] [address] Sammy Berman, MED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-MOTOR ROOM CONTROLLER [address] [facility] [address] [place] [address] [facility] HospitalStart: 46-62-1984Nlwho screening for protein Diabetes: Urine Protein ScreeningHarry S. Truman Memorial Veterans' HospitalStart: 50-61-9449OagmqqauzKettering Health – [facility] Center CenterStart: 29-36-7754Lzyccgivttkcgq of prophylactic treatment [facility] CenterStart: 70-43-8985Dmmovhlr admissionKettering Health – [facility] Center CenterStart: 98-42-9293Xyhpgssu to clinical allergistKettering Health – [facility] Center CenterStart: 65-89-7997JcxxpwddgKettering Health – [facility] Medical Center CenterStart: 07-58-4463Jrsdusqy to rehabilitation physicianCleveland Clinic Hillcrest Hospital Start: 34-00-2130Yxmbk chemistryKettering Health – So[facility] Medical Center CenterStart: 55-46-7590KqvsjdbyzKettering Health – [facility] Center CenterStart: 53-19-6840Ofnko chemistry [facility] CenterStart: 34-98-3016MoufeggisKettering Health – [facility] Center CenterStart: 90-17-9012Toavjmbx to Social ServicesOhio State Health Systemtart: 28-84-8709Ybsxk chemistryKettering Health – [facility] Medical Center CenterStart: 04-30-2023 End: 44-65-2118VzfitxgdlKettering Health – Soin Medical Center CenterStart: 10-19-2023Medicare Annual Wellness (AWV)Medicare Annual Wellness (AWV)[facility] HealthcareStart: 04-29-2023 Blood chemistryKettering Health – So[facility] Medical Center CenterStart: 57-33-4144Srrop panel [facility] CenterStart: 50-25-9214JuqvlismjOhio State Health Systemtart: 90-83-2523MsmncqcrvKettering Health – Soin Medical Center CenterStart: 04-28-2023 Hospital admissionKettering Health – [facility] CenterStart: 26-25-5581JvfxprcqeKettering Health – So[facility] Center CenterStart: 64-79-3606Jnxrawoy admissionKettering Health – [facility] Center CenterStart: 33-16-4677EwedvdodinwhMtxmcmjdwCleveland Clinic Hillcrest Hospital Start: 36-94-3621Gbacfecp to cardiologistKettering Health [facility] CenterStart: 04-28-2023 End: 38-06-3139LhkwjctfeKettering Health – Soin Medical Center CenterStart: 72-71-0514Mdlnbcmhltl of Left Heart using Low Osmolar ContrastFluoroscopy of Left Heart using Low Osmolar ContrastOhio State Health Systemtart: 07-93-0198Ldcwhpdvkyz of Multiple Coronary Arteries using Low Osmolar ContrastFluoroscopy of Multiple Coronary Arteries using Low Osmolar ContrastCleveland Clinic Hillcrest Hospital Start: 57-24-1839Axwurcydm of Intramedullary Internal Fixation Device into Right Upper Femur, Percutaneous ApproachInsertion of Intramedullary Internal Fixation Device into Right Upper Femur, Percutaneous ApproachOhio State Health Systemtart: 19-43-6942Wjeiphsghme of Cardiac Sampling and Pressure, Left Heart, Percutaneous ApproachMeasurement of Cardiac Sampling and Pressure, Left Heart, Percutaneous ApproachOhio State Health Systemtart: 04-04-2022 Hemoglobin A1c measurementDiabetes: Hemoglobin X6BAgxmvtucffMiami Valley Hospital: 54-64-8889Odybzqwc vaccine (2 of 2)Shingles vaccine (2 of 2)[facility]: 17-53-4872VKWWG-19 Vaccine (3 - Booster for Moderna series)COVID-19 Vaccine (3 - Booster for Moderna series)[facility] Start: 15-71-4975Wpgcemeknnmcf B Vaccine (3 of 4 - Increased Risk Bexsero 2-dose series)Meningococcal B Vaccine (3 of 4 - Increased Risk Bexsero 2-dose series) [facility]: 11-89-4588Aqxqqnwflauac B Vaccine (3 of 4 - Increased Risk Bexsero 3-dose series)Meningococcal B Vaccine (3 of 4 - Increased Risk Bexsero 3-dose series)[facility] HospitalStart: 09-15-2018 DTaP/Tdap/Td Vaccines (3 - Td or Tdap)DTaP/Tdap/Td Vaccines (3 - Td or Tdap)[facility] HospitalStart: 09-01-2002Medicare Annual Wellness VisitMedicare Annual Wellness VisitCleveland Clinic Lutheran Hospitaltart: 85-12-3695Oqgod screening for protein Diabetes: Urine Protein ScreeningMiami Valley Hospital: 10-78-4808Ltfaaka ScreeningAnxiety ScreeningCleveland Clinic Lutheran Hospitaltart: 1955 Depression ScreeningDepression ScreeningWayne HealthCare Main Campusrt: 1955 Hepatitis B surface antibody levelLDL CholesterolCleveland Clinic Lutheran Hospitaltart: 40-54-2868Rqfokkfihj ScreenDepression ScreenBON [facility] Hospitalart: 19-26-3519Tzscwawo foot examinationMiami Valley Hospital: 66-37-4333Stjmzdpk screeningMiami Valley Hospital: 1945 Hepatitis B screeningUrine Albumin:Creatinine RatioCleveland Clinic Children's Hospital for Rehabilitation: 76-92-5320Giffaiwyqqsio B Vaccine (1 of 4 - Increased Risk)Meningococcal B Vaccine (1 of 4 - Increased Risk)[facility]: 70-76-1476Vwgatwwmbbgfg Vaccine (1 - Risk 2-dose series)Meningococcal Vaccine (1 - Risk 2-dose series)[facility]: 81-59-1195IUX Vaccines (1 of 1 - Risk 1-dose series)HIB Vaccines (1 of 1 - Risk 1-dose series) [facility]: 17-26-1982Yzxtur Wellness Visit (AWV) Annual Wellness Visit (AWV)[facility]: 14-68-1544Yplgd panel Lipid PanelUnTwin City Hospital: 1937Medicare Annual Wellness VisitMedicare Annual Wellness Visit (AWV)[facility]: 06-93-5199Nfapufqgb for osteoporosisBone Density ScanUnRiverview Health InstituteAEROBIC CULTUREAEROBIC CULTURE Lab Routine 06/20/2024 10:18 AM [facility]IST[facility] Work Phone: ANAEROBIC CULTUREANAEROBIC CULTURE Lab Routine 06/20/2024 10:18 AM [facility] HospitalBasic Metabolic Panel w/ Reflex to MGBasic Metabolic Panel w/ Reflex to MG Lab Routine Daily until discontinued starting 01/06/2022, 2 completedBON [facility] [employer] Phone: comment on above:Daily until discontinued starting 01/06/2022, 2 completedCBC W Auto Differential panel - BloodCBC with Auto Differential Lab Routine Daily until discontinued starting 01/03/2022, 5 completedBON [facility] [employer] Phone: comment on above:Daily until discontinued starting 01/03/2022, 5 completedComprehensive metabolic 2000 panel - Serum or Plasma [facility] Hill[facility]st HospitalGlucose [Mass/volume] in Serum or PlasmaPOCT Glucose Point of Care Testing STAT As Needed until discontinued starting 01/02/2022ON [facility] [employer] Phone: comment on above:As Needed until discontinued starting 01/02/2022Glucose [Mass/volume] in Serum or PlasmaPOCT glucose Point of Care Testing Routine Now Then Every 4hr until discontinued starting 01/03/2022 [employer] Phone: comment on above:Now Then Every 4hr until discontinued starting 01/03/2022Glucose [Mass/volume] in Serum or PlasmaGLUCOSE, BLOOD (POC) Lab Routine 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, with long-term current use of insulin (HCC) Ordered: 4CPro[facility] Work Phone: Comment on above:Ordered: 07/06/2024Glucose measurement estimated from glycated hemoglobinCleveland Clinic Hillcrest Hospital Helicobacter pylori Ag [Presence] in Stool by ImmunoassayCleveland Clinic Hillcrest HospitalOxygen therapy [Minimum Data Set]Initiate Oxygen Therapy Protocol Respiratory Care Routine As Needed until discontinued starting 01/02/2022 [employer] Phone: comment on above:As Needed until discontinued starting 01/02/2022atient [facility] Work Phone: Patient referralKettering Health [facility] Ctr Work Phone: Phosphate [Mass/volume] in Serum or PlasmaPhosphorus Lab Routine Daily until discontinued starting 01/06/2022, 2 completedBON [employer] Work Phone: comjvwo on above:Daily until discontinued starting 01/06/2022, 2 completedSpirometry panelIncentive spirometry Respiratory Care Routine Every 2hr while awake until discontinued starting 01/03/2022 [employer] Phone: comzjwm on above:Every 2hr while awake until discontinued starting 01/03/2022US Heart TransthoracicCleveland Clinic Hillcrest HospitalUS Heart TransthoracicCleveland Clinic Hillcrest HospitalXR Cervical spine 3 ViewsMoundview Memorial Hospital and Clinics Immunizations Immunization DateImmunizationNotesCare SxdqrwxhAktfyxfq94-70-9116wffecbngz, high dose seasonal, preservative-freeGeneric ProviderHarry S. Truman Memorial Veterans' HospitalHmsexnlipf89-73-5325 Seasonal trivalent influenza vaccine, adjuvanted, preservative freeYuerong Cally PASSENGER BRAKEMAN Work Phone: [facility]' HospitalBieeujeult82-60-5933gudnettrk virus vaccine, unspecified formulationMarie Ileana DO Work Phone: [facility]' HospitalUpbfnzzpqw69-45-8908Pyiqybjby, Seasonal, Quadrivalent, AdjuvantedYuerong Cally PASSENGER BRAKEMAN Work Phone: [facility]' HospitalZouihbaxhk40-84-4319GVMEP-54 (PFIZER) 12Y and olderDO Marie Tejeda Work Phone: [facility]11-07-2023Moderna SARS-CoV-2 VaccinationYuerong Cally PASSENGER BRAKEMAN Work Phone: [facility]' HospitalOxahsjyjbo17-65-9377JHQ, recombinant, protein subunit RSVpreF, adjuvant reconstitu, 120mcg/0.5mL, PF (Arexvy)Yuerong Cally PASSENGER BRAKEMAN Work Phone: [facility]' HospitalUkcsogwbah77-05-9443jfsnks vaccine recombinant Yuerong Cally PASSENGER BRAKEMAN Work Phone: [facility]' HospitalRbijlsvngq83-60-6209KSXVH-77 mRNA Bivalent Booster (Pfizer)DO Marie Tejeda Work Phone: [facility]11-15-2022Moderna Bivalent Booster VaccinationYuerong Cally PASSENGER BRAKEMAN Work Phone: [facility]' HospitalPtuipuhpwb82-94-5353kszptrizu, high dose seasonal, preservative-freeYuerong Cally PASSENGER BRAKEMAN Work Phone: [facility]' HospitalYdqjebsjnz89-04-1533uieufi vaccine, liveYuerong Cally PASSENGER BRAKEMAN Work Phone: [facility]' HospitalHmzrabprfk39-73-2252ycrpks vaccine recombinant Yuerong Cally PASSENGER BRAKEMAN Work Phone: [facility]' HospitalJdskxtqynp64-22-8370imzmrmbmu, high dose seasonal, preservative-freeYuerong Cally PASSENGER BRAKEMAN Work Phone: [facility]' HospitalTvcpttptya96-52-8367Ydfxequ SARS-CoV-2 VaccinationYuerong Cally PASSENGER BRAKEMAN Work Phone: [facility]' HospitalVzvwauzehp03-64-3707Jhlkgwj SARS-CoV-2 VaccinationYuerong Cally PASSENGER BRAKEMAN Work Phone: [facility]' HospitalJztevfhhxi08-68-0442Tmkzweak trivalent influenza vaccine, adjuvanted, preservative freeYuerong Cally PASSENGER BRAKEMAN Work Phone: [facility]' HospitalSdfpbletfd07-88-6726mkqtueblqcak conjugate vaccine, 13 valentYuerong Cally PASSENGER BRAKEMAN Work Phone: [facility]' HospitalCjxczidpub54-33-6538mtaepujckfuxw B vaccine, recombinant, OMV, adjuvantedRobert Vasuniversity hospitals geneva medical centerk DO Work Phone: noBarnes-Jewish West County HospitalZxdluuogyy04-86-3019ttvutntkncojt polysaccharide (groups A, C, Y and W-135) diphtheria toxoid conjugate vaccine (MCV4P)[facility] DO Work Phone: [facility]' HospitalMoplyxsoho54-44-5212npzrbsutqmih polysaccharide vaccine, 23 valentRobert Vasuniversity hospitals geneva medical centerk DO Work Phone: [facility]' HospitalLtfdsdwfob51-56-4961Frsdpkov trivalent influenza vaccine, adjuvanted, preservative freeYuerong Cally PASSENGER BRAKEMAN Work Phone: [facility]' HospitalJooesyxymt52-46-7523anyswyznkch influenzae type b vaccine, PRP-OMP conjugateRobert Vasuniversity hospitals geneva medical centerk DO Work Phone: [facility]' HospitalUgaxvswzgy83-02-6272iyzjjowwnfgxw B vaccine, recombinant, OMV, adjuvantedRobert Vaschak DO Work Phone: [facility]' HospitalOqpmfqinbu52-40-0785ygeukmiqmkli conjugate vaccine, 13 valentRobert Vaschak DO Work Phone: [facility]' HospitalBumnqgqfql65-24-7763Gayljuee trivalent influenza vaccine, adjuvanted, preservative freeYuerong Cally PASSENGER BRAKEMAN Work Phone: [place] [address]Hvmgxjstos53-86-3112dziacvf and diphtheria toxoids, adsorbed, preservative free, for adult use (5 Lf of tetanus toxoid and 2 Lf of diphtheria toxoid)Anatoly Anne PASSENGER BRAKEMAN Work Phone: [facility]' HospitalGvjqadbsbh98-46-8880ivtyfgvep, high dose seasonal, preservative-freeAnatoly Cally PASSENGER BRAKEMAN Work Phone: [facility] HospitalOayjzvgvwv79-83-6650btkzggquvhju polysaccharide vaccine, 23 valentYleonarda Cally PASSENGER BRAKEMAN Work Phone: [facility]' HospitalBhncbuptga41-25-2429uchhsdk toxoid, reduced diphtheria toxoid, and acellular pertussis vaccine, adsorbedAnatoly CreativeD PASSENGER BRAKEMAN Work Phone: [facility] Payers DatePayer CategoryVayerCanonsburg Hospital [id number]-jgh [id number] Health Insurance1.2.840.528366.1.13.693.2.7.9.837962.565945. Medicare1.2.840.526938.1.13.647.2.7.3.3732[id number] 1.2.840.515466.1.13.239.2.7.3.90303[id number] 1.2.840.138194.1.13.239.2.7.3.06306[id number] 2.16.840.1.299095.3.579.2.46118-00-9672Zccfjst6377598 2.16.840.1.321373.3.579.2.93770-67-7280Csziikv6532333 2.16.840.1.042585.3.579.2.96919-96-5705Gbhiyse8242346 2.16.840.1.076542.3.579.[id number] 2.16.840.1.613506.3.57[id number] 2.16.840.1.428783.3.57[id number] 2.16.840.1.594213.3.579.[id number] 2.16.840.1.027648.3.579.2.[id number] 2.16.840.1.744790.3.579.2.55498-78-6136Lvoroyl36165499 2.16.840.1.127356.3.579.2.38152-24-5555Jnxgvsc01908774 2.16.840.1.727616.3.579.2.17390-27-5490Vyxrjqb12183865 2.16.840.1.371035.3.579.2.738592-74-0165Nxkydxm65590307 2.16.840.1.675721.3.579.2.716221-40-6463Aukvafb68996537 2.16.840.1.068025.3.579.2.[id number] 2.16.840.1.695902.3.579.2.005060-06-1694Aawzhqk82696100 2.16.840.1.896038.3.579.2.100770-58-8586Ohnuoyf93642445 2.16.840.1.792625.3.579.2.768823-97-2195Hmvxqkx5093895 2.840.1.484725.3.579.2.400220-25-5781Bftcpfq3756588 2.0.1.721968.3.579.2.538623-10-4149Jslwovy9497381 2.840.1.491197.3.579.2.962177-43-4251Smwswxc8904469 2.840.1.979639.3.579.2.937450-95-9191Hhndlnf1466273 2.0.1.637085.3.579.2.497668-74-2563Wqdxkwu5003053 2.0.1.252072.3.579.2.702493-18-7443Hvgdxwm37313240 2.0.1.018153.3.579.2.32069-50-9428Opzmglo14402747 2.0.1.204461.3.579.2.02819-12-0513Fdpqzgl14023824 2.0.1.501271.3.57[id number] 2.0.1.281943.3.579.2.90273-00-2095Kcatncv43267615 2.0.1.550715.3.579.2.07872-59-5197Bekuolo74356818 2.0.1.829858.3.579.2.62[id number] 2.840.1.806[id number] 2.840.1.188857.3.579.2.531 [id number] 2.840.1.9[id number] 2.16.840.1.3[id number] 2.16.840.1.822191.3.579.2.531 [id number] 2.16.840.1.2[id number] 2.16.840.1.9[id number] 2.16.840.1.965002.3.579.2.531 [id number] 2.16.840.1.5[id number] 2.16.840.1.2[id number] 2.16.840.1.844228.3.579.2.531 Social History DateTypeDetailFacilityStart: 01-04-2022 End: 24-07-3990Lkeazlo smoking status NHISEx-smokerYou.i Start: 07-12-1947 End: 85-16-1471Lohetrw of tobacco useCigarette SmokerTUCSON MED[facility] [employer] Phone: start: 01-04-2022 End: 48-43-6133Wtzwjcm use and exposureSmokeless tobacco non-userTUCSON MEDICAL CENTER [employer] Phone: start: 90-72-5281Bocpezx intakeEx-drinker (finding)[facility] [employer] Phone: start: 79-95-2146Noz Assigned At BirthNot on fileTUCSON MEDICAL CENTER [employer] Phone: start: 12-24-2021 End: 28-69-7803Caqnsuys to SARS-CoV-2 (event)Not sureTUCSON MEDICAL CENTER [employer] Start: 04-28-2023 End: 67-18-5025Hgtkiek smoking status NHISCurrent some day smokerOhio State Health Systemtart: 34-52-6117Zdl [facility]: 05-25-2023 End: 18-63-2418Ecn Assigned At [facility] [employer] Other Start: 05-25-2023 End: 79-44-2428Qatfigp intakeCurrent drinker of alcohol (finding)[facility] Work Phone: Start: 05-25-2023 End: 17-09-2043Yeoeach intakeUnRiverview Health Institute Work Phone: Start: 07-12-1947 End: 74-23-6055Cotlrjv smoking status NHISSmoker (finding)[facility] HospitalHow often to you have a drink containing alcohol?2-4 times a month [facility] HealthcareHow many standard drinks containing alcohol do you have on a typical day?1 or 2N[facility] HealthcareHow often do you have 6 or more drinks on 1 occasion?NeverNOAK HealthcareStart: 50-36-2577Wfkcgpg CommentHas a history of cessation from smokin02/09/2018NOAK HealthcareStart: 11-22-2010 End: 63-32-2123YajVhlu (finding)[facility] Systemtart: 03-30-2018 End: 40-76-1192Gaptuzde Score (1-100), lower number is lower brcp46Hfihxbwab ClinicStart: 93-20-6974Wsweogg Commentsocial useCleveland Clinic Lutheran Hospitaltart: 07-12-1947 End: 90-75-7539Anboayz smoking status NHISSmokes tobacco dailyNOAK Healthcare Tobacco smoking statusExec[facility] of [facility] Start: 39-58-2769Hhcyzuz Commentcaffeine-1 cup per day [facility] Medical Equipment Procedure CodeEquipment CodeEquipment Original TextEquipment IdentifierDates ORIF, hipOrthopaedic bone screw, non-bioabsorbable, non-sterile ()[id number] FDAStart: 06-90-3501KZMN, hipFemur nail, sterile ()[id number] FDAStart: 25-86-7393RKMY, hipSpiral blade()[id number] FDAStart: 35-12-9276Dnsdabchy, pacemakerEndocardial defibrillation lead ()[id number] FDAStart: 25-62-0698Gryvbzlnd, pacemakerDual-chamber implantable defibrillator ()[id number] FDAStart: 08-08-3696Rizmqgokb, pacemakerEndocardial/interventricular septal pacing lead ()[id number])[id number] FDAStart: 91-16-1244HJ STENT MARK FRONTIER 3.5 X 18FDAStart: 36-57-5395IC STENT MARK FRONTIER 3.5 X 18FDAStart: 81-55-5814PkxpupmNyrpn: 43-74-4389Eiu Needle, Diabetic (Bd Ultra-Fine Marichuy Pen Needle) 32 gauge x 5/32 needleStart: 19-30-4817AJ STENT MARK FRONTIER 3.5 X 18 FDAStart: 74-67-0318NfzlbqmHnjmq: 59-71-2979Bts Needle, Diabetic (Bd Ultra-Fine Marichuy Pen Needle) 32 gauge x 5/32 needleStart: 49-51-9329KB STENT MARK FRONTIER 3.5 X 18FDAStart: 58-89-9529OarvshoBsnpa: 72-31-7539Itz Needle, Diabetic (Bd Ultra-Fine Marichuy Pen Needle) 32 gauge x 5/32 needleStart: 90-46-3335ZA STENT MARK FRONTIER 3.5 X 18FDAStart: 43-19-8362IuoqjgjDkseo: 86-58-4001Xpq Needle, Diabetic (Bd Ultra-Fine Marichuy Pen Needle) 32 gauge x 5/32 needleStart: 38-10-6408IR STENT MARK FRONTIER 3.5 X 18FDAStart: 07-96-3747MoopyiyLahmf: 81-77-8262Qus Needle, Diabetic (Bd Ultra-Fine Marichuy Pen Needle) 32 gauge x 5/32 needleStart: 29-20-1193YK STENT MARK FRONTIER 3.5 X 18FDAStart: 07-16-2023 LancetsStart: 86-38-3735Ifm Needle, Diabetic (Bd Ultra-Fine Marichuy Pen Needle) 32 gauge x 5/32 needleStart: 12-21-8426MF STENT MARK FRONTIER 3.5 X 18FDAStart: 16-96-6965AmgklzeKnckx: 63-47-8812Qrl Needle, Diabetic (Bd Ultra-Fine Marichuy Pen Needle) 32 gauge x 5/32 needleStart: 13-85-1071RM STENT MARK FRONTIER 3.5 X 18 FDAStart: 63-52-5233QcsqyzgMdvfr: 74-44-6217Pjw Needle, Diabetic (Bd Ultra-Fine Marichuy Pen Needle) 32 gauge x 5/32 needleStart: 70-72-7278VW STENT MARK FRONTIER 3.5 X 18FDAStart: 73-86-4563KmutmxdPivrn: 49-98-7404Xmo Needle, Diabetic (Bd Ultra-Fine Marichuy Pen Needle) 32 gauge x 5/32 needleStart: 00-04-4684BN STENT MARK FRONTIER 3.5 X 18FDAStart: 58-35-3346GncleotNkxjw: 84-66-0189Kci Needle, Diabetic (Bd Ultra-Fine Marichuy Pen Needle) 32 gauge x 5/32 needleStart: 98-02-0572RW STENT MARK FRONTIER 3.5 X 18FDAStart: 60-33-0133SafvttbJdlra: 47-15-2040Cip Needle, Diabetic (Bd Ultra-Fine Marichuy Pen Needle) 32 gauge x 5/32 needleStart: 39-84-3718PN STENT MARK FRONTIER 3.5 X 18FDAStart: 07-16-2023 LancetsStart: 12-53-0311Pnn Needle, Diabetic (Bd Ultra-Fine Marichuy Pen Needle) 32 gauge x 5/32 needleStart: 40-93-9016EO STENT MARK FRONTIER 3.5 X 18FDAStart: 17-03-1540YyxayhiYjdxg: 18-93-5501Vmk Needle, Diabetic (Bd Ultra-Fine Marichuy Pen Needle) 32 gauge x 5/32 needleStart: 40-75-0851OL STENT MARK FRONTIER 3.5 X 18 FDAStart: 45-41-7067AiaycukWtsqk: 92-82-7827Wtk Needle, Diabetic (Bd Ultra-Fine Marichuy Pen Needle) 32 gauge x 5/32 needleStart: 11-15-3819VQ STENT MARK FRONTIER 3.5 X 18FDAStart: 06-74-4005XukkrdgQmkep: 29-60-5043Vks Needle, Diabetic (Bd Ultra-Fine Marichuy Pen Needle) 32 gauge x 5/32 needleStart: 24-89-5576NY STENT MARK FRONTIER 3.5 X 18FDAStart: 20-88-3228ZmxuaibTrywg: 81-23-0448Otd Needle, Diabetic (Bd Ultra-Fine Marichuy Pen Needle) 32 gauge x 5/32 needleStart: 84-57-451421954473Ilcod: 37-93-8411CL STENT MARK FRONTIER 3.5 X 18FDAStart: 57-98-4311IlppmlaUuqjd: 27-11-2832Asq Needle, Diabetic (Bd Ultra-Fine Marichuy Pen Needle) 32 gauge x 5/32 needleStart: 59-11-2121HY STENT MARK FRONTIER 3.5 X 18 FDAStart: 17-31-2638HyjhqbsPpjij: 90-30-2898Qmv Needle, Diabetic (Bd Ultra-Fine Marichuy Pen Needle) 32 gauge x 5/32 needleStart: 63-76-4883US STENT MARK FRONTIER 3.5 X 18FDAStart: 38-85-6387GdgnwysBzhar: 85-02-1585Ana Needle, Diabetic (Bd Ultra-Fine Marichuy Pen Needle) 32 gauge x 5/32 needleStart: 42-56-8251IH STENT MARK FRONTIER 3.5 X 18FDAStart: 94-74-5322WjmdjsoPrrsx: 67-67-5311Bdy Needle, Diabetic (Bd Ultra-Fine Marichuy Pen Needle) 32 gauge x 5/32 needleStart: 20-06-7129YM STENT MARK FRONTIER 3.5 X 18FDAStart: 14-75-4155GozhzvsAvtii: 40-98-4771Siv Needle, Diabetic (Bd Ultra-Fine Marichuy Pen Needle) 32 gauge x 5/32 needleStart: 60-62-3682QW STENT MARK FRONTIER 3.5 X 18FDAStart: 36-47-6660Vhxju Sugar Diagnostic stripStart: 19-34-9351Eclvkzx miscStart: 71-24-1990Hrx Needle, Diabetic (Bd Ultra-Fine Marichuy Pen Needle) 32 gauge x 5/32 needleStart: 01-18-7498HL STENT MARK FRONTIER 3.5 X 18FDAStart: 35-82-5871Buhys Sugar Diagnostic stripStart: 01-42-2836Giknxfr miscStart: 30-05-4355Aut Needle, Diabetic (Bd Ultra-Fine Marichuy Pen Needle) 32 gauge x 5/32 needleStart: 96-85-6734UC STENT MARK FRONTIER 3.5 X 18FDAStart: 41-42-3191Tkqqh Sugar Diagnostic stripStart: 34-64-7785Agolrjk miscStart: 60-23-9410Kav Needle, Diabetic (Bd Ultra-Fine Marichuy Pen Needle) 32 gauge x 5/32 needleStart: 20-49-6378UJ STENT MARK FRONTIER 3.5 X 18FDAStart: 64-66-7343Cmmme Sugar Diagnostic stripStart: 83-55-0750Nndqqdl miscStart: 92-09-0748Kch Needle, Diabetic (Bd Ultra-Fine Marichuy Pen Needle) 32 gauge x 5/32 needleStart: 18-17-9729MC STENT MARK FRONTIER 3.5 X 18FDAStart: 63-86-1538Lylcc Sugar Diagnostic stripStart: 01-94-1424Alablml miscStart: 45-70-6841Yab Needle, Diabetic (Bd Ultra-Fine Marichuy Pen Needle) 32 gauge x 5/32 needleStart: 26-11-1301Ovb with insulin once daily in case of pump [id number]: 00-40-6106CF STENT MARK FRONTIER 3.5 X 18FDAStart: 88-00-0806Kmogr Sugar Diagnostic stripStart: 97-69-8461Rwtoizf miscStart: 61-93-1517Apj Needle, Diabetic (Bd Ultra-Fine Marichuy Pen Needle) 32 gauge x 5/32 needleStart: 36-99-4552DO STENT MARK FRONTIER 3.5 X 18FDAStart: 25-19-8095Uqdnk Sugar Diagnostic stripStart: 85-95-7421Maqluef miscStart: 24-04-3312Elk Needle, Diabetic (Bd Ultra-Fine Marichuy Pen Needle) 32 gauge x 5/32 needleStart: 82-05-5847SC STENT MARK FRONTIER 3.5 X 18FDAStart: 00-49-9264Aukhp Sugar Diagnostic stripStart: 76-67-6576Mvhdqwe miscStart: 19-85-9296Ydx Needle, Diabetic (Bd Ultra-Fine Marichuy Pen Needle) 32 gauge x 5/32 needleStart: 22-41-4396QB STENT MARK FRONTIER 3.5 X 18FDAStart: 69-40-8991Hmodl Sugar Diagnostic stripStart: 61-80-8636Zkgmatp miscStart: 35-17-6196Lxg Needle, Diabetic (Bd Ultra-Fine Marichuy Pen Needle) 32 gauge x 5/32 needleStart: 89-82-9480UE STENT MARK FRONTIER 3.5 X 18FDAStart: 94-44-7675Oukkw Sugar Diagnostic stripStart: 33-35-4617Isriljh miscStart: 80-28-3997Asa Needle, Diabetic (Bd Ultra-Fine Marichuy Pen Needle) 32 gauge x 5/32 needleStart: 09-05-2023 Goals DatePatient GoalDesired Activity/State Functional Status NgtgTmgwspgweaUvdinuAwgxxrzx56-57-6610Qcdagvlsbp statusPatient at Baseline [facility] Work Phone: 1(956) [phone]ukmnnts statusPatient at Baseline [facility] Work Phone: 1(229) 950-139712256407-22-2221Xpbalxltug statusPatient is Progressing Toward [facility]Prom[facility] Work Phone: 1(144) [phone]va statusPatient at Baseline [facility] Work Phone: 1(213) [phone]jkvodze statusPatient at Baseline [facility] Work Phone: [phone] Health Questionnaire 2 item (PHQ-2) [Reported][facility] HospitalAsrcmjpdjj29-67-5906Moshiutjps statusPatient at Baseline[facility] Work Phone: [phone]) [phone]uxtcmwvq statusPatient is Progressing Toward [facility] Work Phone: 1(396) [phone]uegg statusPatient at Baseline [facility] Work Phone: [phone] Health Questionnaire 2 item (PHQ-2) [Reported][facility]' HospitalZaqfdhmcll11-98-1407Gezwewrbzd statusPatient is Progressing Toward [facility] Work Phone: [phone]) [phone]kq statusPatient is Progressing Toward [facility] Work Phone: [phone] statusPatient Not at Baseline [facility] Work Phone: Mental Status AtlmGtupgdsyfsRvopvgKupkmley52-13-0079Edrbpylzp functionCognitive Status [facility] Work Phone: [phone]) [phone] functionCognitive Status [facility] Work Phone: [phone]) [phone] functionCognitive Status [facility] Work Phone: [phone] functionCognitive Status [facility] Work Phone: [phone] functionCognitive Status [facility] Work Phone: [phone]) [phone] functionCognitive Status [facility] Work Phone: [phone] functionCognitive Status [facility] Work Phone: [phone] functionCognitive Status [facility] Phone: [phone] functionCognitive Status Patient is Progressing Toward [facility] Work Phone: 1(797) [phone]tg functionCognitive Status Patient is Progressing Toward [facility] Work Phone: [phone]) [phone] functionCognitive Status Patient at [facility] Work Phone: Clinical Notes 01-07-2022 to 05-17-2025 Note Date & LbmkKzhgTdiasgrz24-51-8922 NoteED Patient Education Note Obstetrics and Gynecology [...] this condition includes: ??? Antibiotic medicine. ??? Eizf-kzl-ancpgxg medicines to treat discomfort. ??? Drinking enough [...] these instructions at home: Medicines ??? Take zmky-tom-rzjewkk and prescription medicines only as told by [...] you by your health care provider. Make marcus (more content not included)...[facility]10-23-2025 NoteHNO ID: [id number] Author: AYANA ZAVALA APRN.MOTOR ROOM CONTROLLER Service: ? Author Type: Nurse Practitioner Type: Progress Notes Filed: 05/03/2025 12:25 Note Text: Endocrinology Follow Up History of Present Illness Manolo Roche is a 89 year old male presents today for follow up of DM Type 1. Here with . At [facility] 03/2025, patient was transitioned from Omnipod to [...] pancreatectomy in September 2019 at [facility] in [place]. Per patient, this was done due to [...] Dosage Pharm Subclass aspirin, (more content not included)...[facility]10-23-2025 Note HNO ID: [id number] Author: MIGUEL A GOODWIN MA Service: ? Author Type: Humanities Teacher Type: Procedures Filed: 05/03/2025 12:25 Note Text:[facility]10-10-2025 Hospital Discharge instructions Follow Up Care 04/20/2025 10:32:21 With:JULIO OGLESBY, Tristan Interiano, URL Address: [address] [place], [place] [address] When: Unknown Comments:Pending Cysto/bladder function testing [facility] Manuel 09-29-2025 NoteHNO ID: [id number] Author: AYANA ZAVALA APRN.MOTOR ROOM CONTROLLER Service: ? Author Type: Nurse Practitioner Type: Progress Notes Filed: 04/10/2025 08:17 Note Text: Endocrinology Follow Up History of Present Illness Manolo Roche is a 89 year old male presents today for follow up of DM Type 1. Here with . At [facility] 10/2024, basal rate was reduced overnight. [...] or vomiting. 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 Labwork from this AM is pending. recalls he is not bolusing consistently and will ignore his Omnipod alarms at times. Patient recalls being consistent with his Novolog and Lantus injections when he was on these. 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 Per patient, this was done due to [...] OTHER Medication Dosage Pharm Subclass Blood-Glucose Sensor (V-cube [place] G7 SENSOR) delfin Change every 10 days. [...] needed. Agents to treat Hypoglycemia (Hyperglycemics) Insulin Burnside, Disposable, (BD ULTRA-FINE MARICHUY PEN NEEDLE) 32 gauge x 5/32 Use with insulin once daily in case of pump failure Medical Supplies and DME - Insulin Burnside-Syringes and Admin Supplies insulin pump cart,auto,B (more content not included)...[facility]09-16-2025 Evaluation note* Diagnosis Onset Date Resolution Status Admit Date Ischemic cardiomyopathy acuteSeptember 2024 9:54amType 1 diabetes mellitusacuteSeptember 2024 9:54amAcute GI bleedingresolvedSept2024 9:54amCoronary artery disease involving [place] coronary artery of [place] heart wiinactiveSept2024 9:54amHypertensioninactiveSeptember 2024 9:54amS/P PTCA (percutaneous transluminal coronary angioplasty)inactiveSept2024 9:54amH pylori ulceracuteOctober 2024 10:11amIron deficiencyacuteOctober 2024 10:11amIschemic cardiomyopathyacuteOctober 2024 10:11amType 1 diabetes mellitusacuteOctober 2024 10:11amAcute GI bleedingresolvedOctober 2024 10:11amNon-ST elevation myocardial infarction (NSTEMI), subendocardial infarction,resolvedOctober 2024 10:11amCoronary artery disease involving [place] coronary artery of [place] heart wiinactiveOctober 2024 10:11amHypertensioninactiveOctober 2024 10:11amS/P PTCA (percutaneous transluminal coronary angioplasty)inactiveOctober 2024 10:11am [facility] Work Phone: [phone] 415-570907-29-2025 Telephone encounter Note* Telephone Encounter - Ayana Zavala APRN.CNP - 02/06/2025 11:55 AM EDT Please fax labs to [facility]. See other encounter- Medicare is requiring documentation of his insulin level in order to cover his insulin under Part B. Please notify patient BG needs to be under 225 mg/dL in the AM in order for insulin level to be accurate. [facility]07-29-2025 Miscellaneous Notes* Telephone Encounter - Ayana Zavala APRN.CNP - 02/06/2025 11:55 AM EDT Please fax labs to [facility]. See other encounter- Medicare is requiring documentation of his insulin level in order to cover his insulin under Part B. Please notify patient BG needs to be under 225 mg/dL in the AM in order for insulin level to be accurate. documented in this encounterAshtabula County [facility] Center07-28-2025 Telephone encounter Note * Telephone Encounter - [...] for this to be an accurate reading. [facility]07-28-2025 Miscellaneous Notes* Telephone Encounter - Ayana Zavala [...] be an accurate reading. 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 [facility] [place] VASECTOMY 1989 SOCIAL HISTORY: Social [...] Depression - At risk (01/21/2024) Received from [employer] PHQ-2 Total Score: 3 FAMILY HISTORY: Family [...] (PRILOSEC) 20 mg, Daily before breakfast pancrelipase, Ogz-Ytmr-Hebw, (Creon) 77669-35020 units capsule TAKE 2 CAPSULES BY MOUTH [...] 2. End-stage heart failure. - Classified as [place] Heart Association Class III/IV, indicating severe heart [...] and monitoring are necessary. documented in this encounterHarry S. Truman [facility] Veterans' HospitalCujldbksls84-99-3457 Instructions* Patient Instructions* Selma Wilcox LPN - 01/02/2025 11:30 AM EDT ?? ATTENTION: [employer] Policy Update - Effective 12/13/24 Beginning today, our nursing team will review [employer] messages twice daily and help determine the [...] a brief office visit, if handled via [employer]. We want you to feel informed and confident when using [employer], so here are a few examples to [...] us in your health! documented in this encounterHarry S. Truman Memorial Veterans' HospitalZkowtiwaxb02-18-5141 Telephone encounter Note* Telephone Encounter - Erick Peguero LPN - 12/27/2024 5:54 PM EDT Spoke to patient's . The sensors are ready for mixing picker tender at pharmacy. She will let us know whereshe would like the refills sent when they are ready, nothing further for now. [facility]06-18-2025 Miscellaneous Notes* Telephone Encounter - Erick Peguero LPN - 12/27/2024 5:54 PM EDT Spoke to patient's . The sensors are ready for mixing picker tender at pharmacy. She will let us know whereshe would like the refills sent when they are ready, nothing further for now. * Telephone Encounter - Ayana Zavala APRN.CNP - 12/27/2024 9:53 AM EDT Please call [facility] to inquire what is needed from the office. documented in this encounterAshtabula County Medical Center06-18-2025 Telephone encounter Note * Telephone Encounter - Ayana Zavala APRN.CNP - 12/27/2024 9:53 AM EDT Please call [facility] to inquire what is needed from the office. [facility]06-16-2025 Telephone encounter Note* Telephone Encounter - Ayana Zavala APRN.CNP - 12/25/2024 8:03 AM EDT Rx sent however patient obtains typically from [facility], are they still having issues obtaining from there? [facility]06-16-2025 Miscellaneous Notes* Telephone Encounter - Ayana Zavala APRN.CNP - 12/25/2024 8:03 AM EDT Rx sent however patient obtains typically from [facility], are they still having issues obtaining from there? * Telephone Encounter - Sharonda Felipe - 12/19/2024 12:04 PM EDT Pt needs refill on sensors. Do not see on current med list. [facility] [place]. Insurance is not going to pay for this until 01/03. Spouse is requesting to speak to a nurse about getting an alternative until then. Please review and advise. Patient has been identified by name and birthdate. Duration of symptoms: N/A Person calling: self Call patient at: on cell [phone] (cell) Was an appointment scheduled: No Closing statement: Results or non-symptom based questions: Thank you for calling [facility], your call will be returned within the next business day. Sharonda Kay documented in this encounterAshtabula County Medical Center06-10-2025 Telephone encounter Note * Telephone Encounter - Sharonda Felipe - 12/19/2024 12:04 PM EDT Pt needs refill on sensors. Do not see on current med list. [facility] [place]. Insurance is not going to pay for this until 01/03. Spouse is requesting to speak to a nurse about getting an alternative until then. Please review and advise. Patient has been identified by name and birthdate. Duration of symptoms: N/A Person calling: self Call patient at: on cell [phone] (cell) Was an appointment scheduled: No Closing statement: Results or non-symptom based questions: Thank you for calling [facility], your call will be returned within the next business day. Sharonda Kay [facility]06-03-2025 Telephone encounter Note* Telephone Encounter - Steven [...] Steven Patrick December 12, 2024 3:37 PM [facility]06-03-2025 Miscellaneous Notes* Telephone Encounter - Steven Patrick [...] 12, 2024 3:37 PM documented in this encounterAshtabula County Medical Center04-23-2025 Telephone encounter Note * Telephone Encounter - Ayana Zavala APRN.CNP - 11/01/2024 11:59 AM EDT Please call pharmacy to inquire which insulin is covered or what they need prescription to say- do they need it sent as brand Novolog? [facility]04-23-2025 Miscellaneous Notes* Telephone Encounter - Ayana Zavala APRN.CNP - 11/01/2024 11:59 AM EDT Please call pharmacy to inquire which insulin is covered or what they need prescription to say- do they need it sent as brand Novolog? documented in this encounterAshtabula County Medical Center04-17-2025 Instructions* Patient Instructions* Ayana Zavala APRN.CNP - 10/26/2024 12:38 PM EDT Plan Basal 12am 0.4 8am 0.5 ICR 12am 15 ISF 12am 60 BG Correction Threshold 12am 150 BG Target 12am 150 Recommend discontinuing Farxiga due to risk of euglycemic diabetic ketoacidosis- discussed with PCP/ research kennel supervisor BACKUP INSULIN PLAN: Only use this if [...] up in 8 weeks documented in this encounterAshtabula County Medical Center04-17-2025 NoteHNO ID: [id number] Author: AYANA ZAVALA APRN.CNP Service: ? Author Type: Nurse Practitioner Type: Progress Notes Filed: 10/26/2024 13:11 Note Text: Endocrinology Follow Up History of Present Illness Manolo Roche is a 89 year old male presents today for follow up of DM Type 1. Here with . 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 Per patient, this was done due to [...] needed. Agents to treat Hypoglycemia (Hyperglycemics) Insulin Burnside, Disposable, (BD ULTRA-FINE MARICHUY PEN NEEDLE) 32 gauge x 5/32 Use with insulin once daily in case of pump failure Medical Supplies and DME - Insulin Burnside-Syringes and Admin Supp (more content not included)...[facility]04-17-2025 History of Present illness Narrative* Ayana Zavala, AMADA.MOTOR ROOM CONTROLLER - 10/26/2024 12:05 PM EDT Endocrinology Follow Up History of Present Illness Manolo Roche is a 89 year old male presents today for follow up of DM Type 1. Here with . 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 Per patient, this was done due to [...] needed. Agents to treat Hypoglycemia (Hyperglycemics) Insulin [place]side, Disposable, (BD ULTRA-FINE MARICHUY PEN NEEDLE) 32 gauge x 5/32 Use with insulin oncedaily in case of pump failure Medical Supplies and DME - Insulin Burnside-Syringes and Admin Supplies insulin pump cart,auto,BT,G6/7 (OMNIPOD 5 G6-G7 PODS, GEN 5,) crtg Change every 72 hours. Medical Supply, FDB Superset Lactobac no.41/Bifidobact no.7 (PROBIOTIC-10 ORAL) Take by mouth once daily. Intestinal Chayo Modifiers drakoh-yxuvwdpd-xomcelc (CREON) 24,000-76,000 -120,000 unit cpDR Take 2 capsules by mouth three times daily with meals. and 1 with snacks (8/day) Digestive Enzyme Mixtures lutein-zeaxanthin 25-5 mg cap Take by mouth once daily. Alternative Therapy - Antioxidant Omeprazole Magnesium 20 mg tablet Take 20 mg by mouth. Gastric Acid Secretion Communications Specialist - Proton PumpInhibitors (PPIs) PARoxetine (PAXIL) 40 mg tablet Take 40 mg by mouth every morning. Antidepressant - Selective Serotonin Reuptake Inhibitors (SSRIs) tamsulosin (FLOMAX) 0.4 mg Take 0.4 mg by mouth. Prostatic Hypertrophy Agent - kkrzr-7-ZnupylsnpcykWsqixxgfume Physical Activity: No formal program Diet: CHO [...] Advised to discuss further with PCP / research kennel supervisor, but from our standpoint he would be [...] Recommend discontinuing Farxiga- discussed with PCP / research kennel supervisor BACKUP INSULIN PLAN: Only use this if [...] time of the patient encounter Ayana Zavala APRN.MOTOR ROOM CONTROLLER (Signed electronically to expedite mailing) documented in this encounterAsht[facility]04-04-[facility]25 Evaluation note* Diagnosis Onset Date Resolution Status Admit Date Ischemic cardiomyopathy acuteApril 2024 9:10amType 1 diabetes mellitusacuteApril 2024 9:10am Acute GI bleedingresolvedApril 2024 9:10amCoronary artery disease involving [place] coronary artery of [place] heart wiinactiveApril 2024 9:10am HypertensioninactiveApril 2024 9:10amS/P PTCA (percutaneous transluminal coronary angioplasty)inactiveApril 2024 9:10am [facility] Work Phone: 1(852) 218-399804-02-2025 Telephone encounter Note* Telephone Encounter - Gaye Mata RN - 10/11/2024 4:17 PM EDT Patient's sent message patient had received Dexcom G7 CGM sensors from [employer] lastnight. Patient applied Omnipod 6 insulin [...] and CGM in the next few days. [facility]04-02-[facility] Miscellaneous Notes* Telephone Encounter - Gaye Mata RN - 10/11/2024 4:17 PM EDT Patient's sent message patient had received Dexcom G7 CGM sensors from [employer] lastnight. Patient applied Omnipod 6 insulin [...] the next few days. documented in this encounterAshtabula County Medical Center04-02-2025 Miscellaneous Notes* Telephone Encounter - Gaye Mata RN - 10/11/2024 4:00 PM EDT [facility] for pt to return call. Patient appears to now be connected to the sensor. Advised how to treat hypoglycemia. Recommended see educator for appt to review pump and sensor operation documented in this encounterAshtabula County Medical Center04-02-2025 Telephone encounter Note * Telephone Encounter - Gaye Mata RN - 10/11/2024 4:00 PM EDT [facility] for pt to return call. Patient appears to now be connected to the sensor. Advised how to treat hypoglycemia. Recommended see educator for appt to review pump and sensor operation [facility]04-02-2025 Telephone encounter Note* Telephone Encounter - Ruchi Rhoades - 10/11/2024 11:37 AM EDT Images from the original note were not included. [facility]04-02-[facility] Miscellaneous Notes* Telephone Encounter - [...] notes attached Questions Completed Waiting for determination [facility] Prior Electrical And Instrument Technician Endocrinology and Metabolism [place] * Telephone Encounter - Ayana Zavala APRN.CNP - 10/11/2024 8:07 AM EDT Received notice from pharmacy PA is request for Ominpod 5 pods. Please complete. documented in this encounterAshtabula County Medical Center04-02-2025 Telephone encounter Note * Telephone Encounter - Ruchi Rhoades - 10/11/2024 11:31 AM EDT Images from the original note were not included. Initiated PA for insulin pump cart,auto,BT,G6/7 (OMNIPOD 5 G6-G7 PODS, GEN 5,) crtg through [employer] Chart notes attached Questions Completed Waiting for determination Ruchi Prior Electrical And Instrument Technician Endocrinology and Metabolism [place] [facility]04-02-[facility] Telephone encounter Note* Telephone Encounter - Ayana Zavala APRN.CNP - 10/11/2024 8:07 AM EDT Received notice from pharmacy PA is request for Ominpod 5 pods. Please complete. [facility]04-02-[facility] Telephone encounter Note* Telephone Encounter - Ayana Zavala APRN.CNP - 10/11/2024 8:06 AM EDT Will send PA request in other encounter to PA team. [facility]04-02-[facility] Miscellaneous Notes* Telephone Encounter - Ayana Zavala APRN.CNP - 10/11/2024 8:06 AM EDT Will send PA request in other encounter to PA team. documented in this encounterAshtabula County Medical Center04-01-2025 Telephone encounter Note * Telephone Encounter - Erick Peguero LPN - 10/10/2024 3:28 PM EDT Spoke to [facility], he reported that the Dexcom supplies should be delivered today vis [employer]. Tracking nbr [id number]. According to his notes it was out for delivery at 5:48 am 10/10/2024. I attempted to reach patient at both nbrs listed, no answer. left with update. I will send a MyChart message as well. [facility]04-01-[facility] Miscellaneous Notes* Telephone Encounter - Erick Peguero LPN - 10/10/2024 3:28 PM EDT Spoke to [facility], he reported that the Dexcom supplies should be delivered today vis [employer]. Tracking nbr [id number]. According to his notes it was out [...] office for follow up. documented in this encounterAshtabula County Medical Center04-01-2025 Telephone encounter Note * Telephone [...] to patient's provider office for follow up. [facility]03-26-[facility] Telephone encounter Note* Telephone Encounter - Gaye Mata RN - 10/04/2024 4:38 PM EDT Patent called stating that he is out of Dexcom G7 CGM sensors and has been having difficulty getting the shipment from [employer], his DME supplier. Patient states he made 3 calls to them this week, one including a waterproofing supervisor at [facility], who promised that the shipment was sent and would be received in a day or two. Advised patient to contact his provider's office to see if they are able to help as they submitted all the original paperwork to [facility] back in August and I am not sure if they are waiting on something from the office. Patient was also told to see if the provider's office had Dexcom G7 sensor samples to provide until his shipment arrives so he does not have to drive out to [facility]. Patient verbalized understanding. [facility]03-26-[facility]25 Miscellaneous Notes* Telephone Encounter - Gaye Mata RN - 10/04/2024 4:38 PM EDT Patent called stating that he is out of Dexcom G7 CGM sensors and has been having difficulty getting the shipment from [employer], his DME supplier. Patient states he made 3 calls to them this week, one including a waterproofing supervisor at [facility], who promised that the shipment was sent and would be received in a day or two. Advised patient to contact his provider's office to see if they are able to help as they submitted all the original paperwork to [facility] back in August and I am not sure if they are waiting on something from the office. Patient was also told to see if the provider's office had Dexcom G7 sensor samples to provide until his shipment arrives so he does not have to drive out to [facility]. Patient verbalized understanding. documented in this encounterAshtabula County Medical Center03-19-2025 Telephone encounter Note * Telephone Encounter - Gaye Mata RN - 09/27/2024 1:22 PM EDT In error [facility]03-19-2025 Miscellaneous Notes* Telephone Encounter - Gaye Mata RN - 09/27/2024 1:22 PM EDT In error documented in this encounterAshtabula County Medical Center03-18-2025 Telephone encounter Note * Telephone Encounter - Yaniqeu Griffin RN - 09/26/2024 8:38 AM EDT [...] already called Report to their ER Agreeable [facility]03-18-2025 Miscellaneous Notes* Telephone Encounter - [...] 09/26/2024 8:29 AM EDT Provided report to [facility]. * Telephone Encounter - Erick Peguero LPN - 09/26/2024 8:18 AM EDT Left message on machine to call the office. * Telephone Encounter - Ramya Crandall, KARIN - 09/26/2024 8:10 AM EDT Pt identified by name and Pt given message below Stated understanding will take pt to [facility] Advised to f/u with endo upon [...] ( see 09-25-2024) Will document this in [employer]/ basics * Telephone Encounter - Erick Peguero [...] in the ER immediately. documented in this encounterAshtabula County Medical Center03-18-2025 Telephone encounter Note * Telephone Encounter - Ayana Zavala APRN.CNP - 09/26/2024 8:29 AM EDT Provided report to [facility]. [facility]03-18-20[facility] Telephone encounter Note* Telephone Encounter - Erick Peguero LPN - 09/26/2024 8:18 AM EDT Left message on machine to call the office. [facility]03-18-2025 Telephone encounter Note* Telephone Encounter - Ramya Crandall, RN - 09/26/2024 8:10 AM EDT Pt identified by name and Pt given message below Stated understanding will take pt to [facility] Advised to f/u with endo upon [...] 09-25-2024) Will document this in epic/ basics [facility]03-18-2025 Telephone encounter Note* Telephone Encounter - Erick Peguero LPN - 09/26/2024 7:47 AM EDT Attempted to reach patient at both numbers listed in demo. Left urgent messages on both V M [facility]03-18-2025 Telephone encounter Note* Telephone Encounter - Ayana Zavala APRN.CNP - 09/26/2024 7:39 AM EDT Received page regarding critical lab result of glucose 614 mg/dL. 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 Please call patient and instruct him to be seen in the ER immediately. [facility]03-17-2025 Instructions* Patient Instructions* Ayana Zavala [...] me in 4 weeks documented in this encounterAshtabula County Medical Center03-17-2025 NoteHNO ID: [id number] Author: AYANA ZAVALA APRN.CNP Service: ? Author [...] in the meantime, but was able to mixing picker tender Novolog on 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 He did not [...] pancreatectomy in September 2019 at [facility] in [place]. Per patient, this was done due to [...] by mouth once daily. Intestinal Chayo Modifiers ovazav-evpifkgv-kqvatfn (CREON) 24,000-76,000 -120,000 unit cpDR Take 2 capsules by mouth three times daily with meals. and 1 with snacks (8/day) Digestive Enzyme Mixtures lutein-zeaxanthin 25-5 mg cap Take by mouth once daily. Alternative Therapy - Antioxidant Omeprazole Magnesium 20 mg tablet Take 20 mg by mouth. Gastric Acid Secretion Communications Specialist - Proton Pump Inhibitors (PPIs) PARoxetine (PAXIL) 40 mg tablet Take 40 mg by mouth every morning. Antidepressant - Selective Serotonin Reuptake Inhibitors (SSRIs) tamsulosin (FLOMAX) 0.4 mg Take 0.4 mg by mouth. Prostatic Hypertrophy Agent - ffcji-1-Tokwtnrikyaf Antagonists Physical Activity: No formal program Diet: CHO Controlled Diet SMBG Frequency of Monitoring: Four times a Day Not connected with pump (more content not included)...[facility] 09-25-2024 History of Present illness Narrative* Ayana Zavala, AMADA.MOTOR ROOM CONTROLLER - 09/25/2024 2:25 PM EDT Images from [...] recently. He is having polydipsia and polyuria. HisAvrupa Mineralscom G7 is not connected with his pump currently. He reports remembering to put his sensor code in when he last changed this so is confused why that did not work. Reports he ran out of Novolog for his pump on Wednesday but he did have Novolog pens at home so did use this in the meantime, but was able to mixing picker tender Novolog on 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 He did not [...] pancreatectomy in September 2019 at [facility] in [place]. Per patient, this was done due to [...] by mouth once daily. Intestinal Chayo Modifiers csyldy-miorzesl-ambfbix (CREON) 24,000-76,000 -120,000 unit cpDR Take 2 capsules by mouth three times daily with meals. and 1 with snacks (8/day) Digestive Enzyme Mixtures lutein-zeaxanthin 25-5 mg cap Take by mouth once daily. Alternative Therapy - Antioxidant Omeprazole Magnesium 20 mg tablet Take 20 mg by mouth. Gastric Acid Secretion Communications Specialist - Proton PumpInhibitors (PPIs) PARoxetine (PAXIL) 40 mg tablet Take 40 mg by mouth every morning. Antidepressant - Selective Serotonin Reuptake Inhibitors (SSRIs) tamsulosin (FLOMAX) 0.4 mg Take 0.4 mg by mouth. Prostatic Hypertrophy Agent - ehrsq-8-GhkieohxhrvtYmeolnfvemx Physical Activity: No formal program Diet: CHO [...] - 1.30 mg/dL 1.31 High TBH EGFR-AF JAMAICAN >=60 mL/min/1.73m 2 >60 TBH EGFR-NON AF JAMAICAN >=60 mL/min/1.73m 2 52 Low BUN CREATININE RATIO 17.6 CALCIUM 8.5 - 10.1 mg/dL 9 Resulting Agency TB Specimen Collected: 09/13/24 9:23 AM Performed by: [employer] Last Resulted: 09/13/24 10:54 AM Received From: [employer] Result Received: 09/25/24 2:18 PM Impression/Recommendations IMPRESSION [...] LDL , TG LIPID PANEL (EXTERNAL) Order: [id number] Component Ref Range & Units Cholesterol 150 - 200 mg/dL 97 Low Triglycerides 27 - 150 mg/dL 38 HDL Cholesterol >39 mg/dL 50 VLDL 0 - 30 mg/dL 8 LDL (calc) <130 mg/dL 39 Cholesterol:HDL Ratio 1.0 - 5.0 1.9 Resulting Agency [facility] Specimen Collected: 01/22/24 6:06 AM Performed by: LEROY Last Resulted: 01/22/24 1:58 PM Received From: [employer] Result Received: 07/06/24 9:37 AM -- This [...] time of the patient encounter Ayana Zavala APRN.MOTOR ROOM CONTROLLER (Signed electronically to expedite mailing) documented in this encounterAshtabula [facility] Center03-14-2025 Telephone encounter Note * Telephone [...] once he wakes up to reviewpump issues. [facility]03-14-2025 Miscellaneous Notes* Telephone Encounter - [...] up to reviewpump issues. documented in this encounterAshtabula County Medical Center03-14-2025 Telephone encounter Note * Telephone [...] to review pump settings and reinforce education. [facility]03-14-2025 Miscellaneous Notes* Telephone Encounter - [...] settings and reinforce education. documented in this encounterAshtabula [facility] Center02-24-2025 History of Present illness Narrative* Gaye Mata RN - 09/04/2024 1:00 PM EST DIABETES SELF-MANAGEMENT EDUCATION AND SUPPORT FOLLOW-UP VISIT Type of Diabetes: Type 2 Location: [place] Type of visit: In person individual Types [...] 5 insulin pump. Type of training:upgrade from [employer] If upgrade, patient was previously on the [...] Name: Insulet Omnipod 5 System Serial Number: [id number] Sync Date: 09/04/24 Device Time Offset (hh:mm): +00:00 Device Name: Insulet Omnipod Dash System Serial Number: [id number] Sync Date: 03/05/22 Device Time Offset (hh:mm): +00:00 Device Name: Insulet Omnipod Dash System Serial Number: [id number] Sync Date: 11/14/21 Device Time Offset (hh:mm): +00:00 Device Name: Insulet Omnipod DASH Bartholomew Serial Number: Insulet Dash Sync Date: 09/19/20 Device Time Offset (hh:mm): +00:00 Device Name: Insulet Omnipod Dash System Serial Number: [id number] Sync Date: 09/19/20 Device Time Offset (hh:mm): [...] weeks. This is a non-billable encounter through [employer] but will be billed to the following [...] for patient selected goal(s) with dietitian and/or informatics educator within 2-4 weeks/months via office visit, [employer] message, email, or phone call. Contactinformation provided to patient for informatics educator. Educator to contact patient in 3 [...] vary based on the plan requirements. Call [phone] to schedule a diabetes education follow up visit. Time Spent (Minutes): 120 This visit note will be communicated to the healthcare provider via access to shared medical record. SIGNATURE: Gaye Mata RN PATIENT NAME: Manolo Roche DATE: September 04, 2024 TIME: 12:45 PM PAGER: documented in this encounterAshtabula County Medical Center02-24-2025 NoteHNO ID: [id number] Author: GAYE MATA RN Service: ? Author Type: Registered Nurse Type: Progress Notes Filed: 09/04/2024 15:22 Note Text: DIABETES SELF-MANAGEMENT EDUCATION AND SUPPORT FOLLOW-UP VISIT Type of Diabetes: Type 2 Location: [place] Type of visit: In person individual Types [...] Name: Insulet Omnipod? 5 System Serial Number: [id number] Sync Date: 09/04/24 Device Time Offset (hh:mm): +00:00 Device Name: Insulet Omnipod Dash? System Serial Number: [id number] Sync Date: 03/05/22 Device Time Offset (hh:mm): +00:00 Device Name: Insulet Omnipod Dash? System Serial Number: [id number] Sync Date: 11/14/21 Device Time Offset (hh:mm): +00:00 Device Name: Insulet Omnipod DASH? Bartholomew Serial Number: Insulet Dash Sync Date: 09/19/20 Device Time Offset (hh:mm): +00:00 Device Name: Insulet Omnipod Dash? System Serial Number: [id number] Sync Date: 09/19/20 Device Time Offset (hh:mm): [...] to hyperglycemia: Yes Patient (more content not included)...[facility]02-20-2025 Telephone encounter Note* Telephone Encounter - [...] instructions on day of training information to [email or web address] [facility]02-20-2025 Miscellaneous Notes* Telephone Encounter - [...] instructions on day of training information to [email or web address] documented in this encounterAshtabula County Medical Center02-19-2025 History of Present illness Narrative* Marie Tejeda, [...] assistance of a healthcare professional from the [facility], who has introduced a new [...] has beencommunicating with his healthcare team via [employer] and reports no feelings of depression. He [...] care of a diabetic specialist at the [facility] and is managing well without [...] mild mitral regurgitation, placing him in the [place] Heart [employer] class 1/2. He is currently [...] ran out of his inhaler while in [place] and was unable to refill it at [...] Pancreatic insufficiency (CMS/HCC) 60' documented in this encounterHarry S. Truman Memorial Veterans' [id number] Telephone encounter Note* Telephone Encounter - Miguel A Goodwin MA - 08/15/2024 11:55 AM EST Form completed, faxed, confirmation received. Sent for scan. [facility]02-04-2025 Miscellaneous Notes* Telephone Encounter - Miguel A Goodwin MA - 08/15/2024 11:55 AM EST Form completed, faxed, confirmation received. Sent for scan. * Telephone Encounter - Miguel A Goodwin MA - 08/15/2024 10:23 AM EST Received a fax from [facility] for a physician's order. Placed on [employer]'s desk for signature on form and chart notes. documented in this encounterAshtabula County Medical Center02-04-2025 Telephone encounter Note * Telephone Encounter - Miguel A Goodwin MA - 08/15/2024 10:23 AM EST Received a fax from [facility] for a physician's order. Placed on [employer] desk for signature on form and chart notes. [facility]01-29-20[facility] Telephone encounter Note* Telephone Encounter - Sheryl Ny MA - 08/09/2024 10:38 AM EST A form has been received from [email or web address] for [facility]CA note. Faxed LUCA note 07/06/24 to [phone]. Confirmation received. [facility]01-29-2025 Miscellaneous Notes* Telephone Encounter - Sheryl Ny MA - 08/09/2024 10:38 AM EST A form has been received from [email or web address] for LUCA note. Faxed LUCA note 07/06/24 to [phone]. Confirmation received. documented in this encounterAshtabula County Medical Center01-14-2025 NoteHNO ID: [id number] Author: GAYE MATA RN Service: ? Author Type: Registered Nurse Type: Progress Notes Filed: 07/25/2024 17:09 Note Text: DIABETES CARE AND EDUCATION VISIT Location: [place] Type of visit: In person individual PATIENT'S [...] Name: Insulet Omnipod Dash? System Serial Number: [id number] Sync Date: 07/06/24 Device Time Offset (hh:mm): [...] basics AND daily use and CGM type: Mocavo with reader. Patient understand he will need to download Edtrips G7 eliane on his [employer]one SE. Patient unable to recall log in for Edtrips eliane. Patient downloaded G6 eliane, not G7 eliane. Educator needed to call Edtrips for assistance in resetting password as patient unable to get into his email to obtain code to reset. -Medications: reviewed home DM meds, basal insulin, prandial insulin, prebolusing, stacking insulin and how to prevent it, injectable insulin discussed: using ecobee DASH with Edtrips G7 controller, and insulin pump instruction: pump benefits , pump requirements of user, pump limitations , infusion set rotation, activity mode, and insulin pump terminology: basal, bolus, carb ratio, BG target, pqepdnq-yy-sfjdc/duration, and patient did not bring insulin vials with him so we were unable to start pump today. Patient and leaving for [place] for a month tomorrow and has rescheduled [...] TOPICS: 1. Patient and to return after [place] trip to start Omnipod 5 switch from [...] This visit note tapan (more content not included)...[facility] 07-25-2024 History of Present illness Narrative* Gaye Mata, RN - 07/25/2024 1:04 PM EST DIABETES CARE AND EDUCATION VISIT Location: [place] Type of visit: In person individual PATIENT'S [...] - - - - DEVICES Device Name: Jiankongbaolet Ever[employer]nix [employer] Media System Serial Number: [id number] [facility] Date: 07/06/24 Device Time Offset (hh:mm): +00:00 [...] Patient understand he will need to download Edtrips G7 eliane on his Iphone SE. Patient unable to recall log in for Dexcom eliane. Patient downloaded G6 eliane, not G7 eliane. Educator needed to call [employer] for assistance in resetting password as patient [...] terminology: basal, bolus, carb ratio, BG target, uiarlut-cv-xxuae/duration, and patient did not bring insulin vials with him so we were unable to start pump today. Patient and leaving for [place] for a month tomorrow and has rescheduled [...] TOPICS: 1. Patient and to return after [place] trip to start Omnipod 5 switch from DASH. Patient advised to remember to bring insulin vials, Omnipod 5 pods, phone, controller, and Omnipod ID login and password to next visit. DIABETES CARE AND EDUCATION PLAN: Individual follow-up Patient does not have [employer]. Email sent prior to today's visit on [...] 2:52 PM PAGER: n/a documented in this encounterAshtabula County Medical Center01-10-2025 Telephone encounter Note * Telephone Encounter - Gaye Mata RN - 07/21/2024 12:09 PM EST In error - patient does not have MyChart set up, status still PENDING. Patient's sent text with code again to create account [facility]01-10-2025 Miscellaneous Notes* Telephone Encounter - Gaye Mata RN - 07/21/2024 12:09 PM EST In error - patient does not have MyChart set up, status still PENDING. Patient's sent text with code again to create account documented in this encounterAshtabula County Medical Center01-09-2025 History of Present illness Narrative* Yomi Chong [...] He has a scheduled appointment with his research kennel supervisor, Dr. Coppola, in the coming weeks. He [...] He is under the care of an spikemaking supervisor, Dr. Awa Zavala, at [facility]. He is recovering well from [...] prostatic hyperplasia) COPD (chronic obstructive pulmonary disease) ([facility]/HCC) Diabetes mellitus ([facility]/HCC) 10/04/2019 Ground glass opacity present on imaging of lung 02/05/2023 Hypertension ([facility]) ICD (implantable cardioverter-defibrillator) in place IPMN (intraductal papillary mucinous neoplasm) 06/23/2018 Added automatically from request for surgery [id number] Left ventricular dysfunction Lumbar spondylosis OA (osteoarthritis) [...] & D PARTIAL HIP ARTHROPLASTY Right 04/12/2023 [place] TONSILLECTOMY & ADENOIDECTOMY <AGE 14 SPLENECTOMY, 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 Pain is [...] of his abdominal wall. documented in this encounterHarry S. Truman Memorial Veterans' HospitalMtqfapjtnq17-03-7882 [place] [id number] Cardiology Consult Note Signed Patient: Manolo Roche MR#: [id number] : 1935 Acct:[id number] Age/Sex: 89 / M Adm Date: 5 Loc: 4N Room: 3F5482-9 Type: ADM INOo Attending Dr: Lisa Hidalgo [...] negative unless noted below or in HPI [facility] Medical History Type 1 diabetes mellitus CAD (coronary artery disease) Former smoker BPH (benign prostatic hyperplasia) Urinary frequency Cardiomyopathy wearing external defib Coronary artery disease involving [place] coronary artery of [place] heart withoutangina pectoris GI bleeding Dupuytren's contracture [...] days #30 tabs 05/07/23 [Rx Confirmed 07/16/24] rjxdxs-gasdfkfj-tillfyd 24,000-76,000-120,000 unit capsule,delayed rel (Creon) 2cap PO [...] tab PO DAILY 10/26/23 [History Confirmed 07/16/24] krecfo-xtdybfcw-sprznph 24,000-76,000-120,000 unit capsule,delayed rel (Creon) 1cap PO [...] # (Auto) N/A Lymph # (Auto) N/A Guadalupe # (Auto) N/A Eos # (Auto) N/A [...] Code(s): I25.10 - Atherosclerotic heart disease of noatak coronary artery without angina pectoris (4) S/P [...] H/o PUD, BPH, Anxiety, depression. Current smoker. [facility] 04/30/23 - Two-vessel coronary artery disease- 100% prox LAD occlusion; 80% D1; LCx has 50% prox stenosis with 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 Echo 04/28/23 - EF 40-45%, mild LVH, trace MR and TR. 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 ECHO in January 2024 at [facility]: EF 30-35% ECHO 03/09/2024: ECHO which showed [...] call with any questions. Follow up with [facility] Cardiology as scheduled. Documented By: Chuck Velasco MD 01/03 1637 Signed By: 07/17/24 1652 [facility]01-06-2025 History and physical note Author Indra Guillory [facility] HospitalNote Date/TimeJanuary 2024 1:48[place] [address] Hospitalist H&P Signed Patient: Manolo Roche MR#: [id number] : 1935 Acct:[id number] Age/Sex: 89 / M Adm Date: 5 Loc: 3T Room: 8R5057-0 Type: ADM INOo Attending Dr: Indra Guillory [...] that which is noted above in HPI [facility] Medical History Type 1 diabetes mellitus CAD (coronary artery disease) Former smoker BPH (benign prostatic hyperplasia) Urinary frequency Cardiomyopathy wearing external defib Coronary artery disease involving [place] coronary artery of [place] heart withoutangina pectoris GI bleeding Dupuytren's contracture [...] days #30 tabs 05/07/23 [Rx Confirmed 07/16/24] cpzfeg-knvqpaxz-habgflg 24,000-76,000-120,000 unit capsule,delayed rel (Creon) 2cap PO [...] tab PO DAILY 10/26/23 [History Confirmed 07/16/24] okpcct-mewqlzan-oesauwh 24,000-76,000-120,000 unit capsule,delayed rel (Creon) 1cap PO [...] % (Auto) 18.9 % (.) 07/16/24 12:30 Guadalupe % (Auto) 12.8 % (.) 07/16/24 12:30 Eos % (Auto) 2.7 % (.) 07/16/24 12:30 Baso % (Auto) 0.8 % (.) 07/16/24 12:30 Nucleat RBC Rel Count 0.2 /100 WBC (0-0.5) 07/16/24 12:30 Neut # (Auto) 4.7 x10E3/uL (1.8-7.7) 07/16/24 12:30 Lymph # (Auto) 1.4 x10E3/uL (1.00-4.8) 07/16/24 12:30 Guadalupe # (Auto) 0.9 x10E3/uL (0.0-0.8) H 07/16/24 [...] 2 Documented By: Indra Guillory MD [id number] Signed By: <Electronically signed by Indra Guillory MD> 07/17/24 0149 [facility] Work Phone: 1(502) 997-875101-06-2025 History and physical [place] [id number] Hospitalist H&P Signed Patient: Manolo Roche MR#: [id number] : 1935 Acct:[id number] Age/Sex: 89 / M Adm Date: 5 Loc: 3T Room: 2M6148-2 Type: ADM INOo Attending Dr: Indra Guillory [...] that which is noted above in HPI [facility] Medical History Type 1 diabetes mellitus CAD (coronary artery disease) Former smoker BPH (benign prostatic hyperplasia) Urinary frequency Cardiomyopathy wearing external defib Coronary artery disease involving [place] coronary artery of [place] heart withoutangina pectoris GI bleeding Dupuytren's contracture [...] days #30 tabs 05/07/23 [Rx Confirmed 07/16/24] jvcucx-rxgpvzxw-qdwehqm 24,000-76,000-120,000 unit capsule,delayed rel (Creon) 2cap PO [...] tab PO DAILY 10/26/23 [History Confirmed 07/16/24] scqsfk-nociumxw-kttjhdr 24,000-76,000-120,000 unit capsule,delayed rel (Creon) 1cap PO [...] % (Auto) 18.9 % (.) 07/16/24 12:30 Guadalupe % (Auto) 12.8 % (.) 07/16/24 12:30 Eos % (Auto) 2.7 % (.) 07/16/24 12:30 Baso % (Auto) 0.8 % (.) 07/16/24 12:30 Nucleat RBC Rel Count 0.2 /100 WBC (0-0.5) 07/16/24 12:30 Neut # (Auto) 4.7 x10E3/uL (1.8-7.7) 07/16/24 12:30 Lymph # (Auto) 1.4 x10E3/uL (1.00-4.8) 07/16/24 12:30 Guadalupe # (Auto) 0.9 x10E3/uL (0.0-0.8) H 07/16/24 [...] 2 Documented By: Indra Guillory MD 5 [id number] Signed By: 07/17/24 0148 [facility]01-05-2025 Evaluation note* Diagnosis Onset Date Resolution [...] August 31, 2024 9:56amCoronary artery disease involving [place]atak coronary artery of [place] heart wiinactiveFebruary 2024 9:56amHypertensioninactive August 31, 2024 9:56amS/P PTCA (percutaneous transluminal coronary angioplasty)inactiveFebruary 2024 9:56amIschemic cardiomyopathyacuteApril 2024 9:10amType 1 diabetes mellitusacuteApril 2024 9:10amAcute GI bleedingresolvedApril 2024 9:10amCoronary artery disease involving [place] coronary artery of [place] heart wiinactiveApril 2024 9:10amHypertension inactiveApril 2024 9:10amS/P PTCA (percutaneous transluminal coronary angioplasty)inactiveApril 2024 9:10am [facility] Work Phone: 1(722) 877-821901-05-2025 Radiology Diagnostic study [facility] [place] [address] [place] [address] CT Scan Report Signed Patient: Manolo Roche MR#: [id number] : 1935 Acct:[id number] Age/Sex: 89 / M ADM Date: Loc: ER Room: Type: [facility] ER Attending Dr: Copies to: Bertin Smith [...] Sergei Valentin M.D.07/16/2024 4:48 PM Dictation Location: [place] [address] Transcribed By: [facility] 07/16/24 1648 Dictated By: Sergei Valentin II, MD 07/16/24 1636 Signed By: 07/16/24 1648 [facility] Work Phone: [phone]) 599-4290504933-26-1633 Telephone encounter Note* Telephone Encounter - Gaye Mata RN - 07/13/2024 4:14 PM EST In error [facility]01-02-2025 Miscellaneous Notes* Telephone Encounter - Gaye Mata RN - 07/13/2024 4:14 PM EST In error documented in this encounterAs[facility]01[facility] Telephone encounter Note * Telephone Encounter - Gaye Mata RN - 07/13/2024 4:09 PM EST Called and spoke with patient and to schedule Omnipod DASH to Omnipod 5 pump upgrade. Patient states he has the new pods and is wearing the Dexcom G6 CGM. Patient was scheduled for carb counting/insulin pump training for 07/25/24 at 1-3 pm at [facility]. Location. Patient's Mychart status is PENDING, invite resent via text and to create account. Email sent to [employer] with clinic address, time, date, and what to bring day of training. [facility]01-02-2025 Miscellaneous Notes* Telephone Encounter - Gaye Mata RN - 07/13/2024 4:09 PM EST Called and spoke with patient and to schedule Omnipod DASH to Omnipod 5 pump upgrade. Patient states he has the new pods and is wearing the Dexcom G6 CGM. Patient was scheduled for carb counting/insulin pump training for 07/25/24 at 1-3 pm at [facility]. Location. Patient's Mychart status is PENDING, invite resent via text and to create account. Email sent to [employer] with clinic address, time, date, and what to bring day of training. documented in this encounterAs[facility]01[facility] History of Present illness Narrative* [...] and see him PRN documented in this encounterHarry S. Truman Memorial Veterans' HospitalKyapcfedeb85-86-2484 Miscellaneous Notes* Telephone Encounter - Ayana Zavala [...] for training. I reached out to our logistics lead and am waiting to hear back, but hopefully can get him set up for training in the next two weeks. documented in this encounterAs[facility]12-[facility] Telephone encounter Note * Telephone [...] for training. I reached out to our logistics lead and am waiting to hear back, but hopefully can get him set up for training in the next two weeks. [facility]12-26-2024 Note* Addendum Note - Ayana Zavala APRN.CNP - 07/06/2024 1:16 PM ESTAddended by: AYANA ZAVALA on: 07/06/2024 01:16 PM Modules accepted: Orders [facility]12-26-2024 Miscellaneous Notes* Addendum Note - Ayana Zavala APRN.CNP - 07/06/2024 1:16 PM ESTAddended by: AYANA ZAVALA on: 07/06/2024 01:16 PM Modules accepted: Orders documented in this encounterAshtabula County Medical Center12-26-2024 Instructions* Patient Instructions* Ayana Zavala [...] 1 ounce protein) 150 calories or less [place] (1 slice bread, 1-2 slices turkey or [...] high in calories) 1 small granola bar ([employer] makes smaller granola bar or Special K bar), 10 nuts (try using the 100 calorie snack nut packs to limit the portion) Protein Cereal Bar (such as a [employer] Protein Bar) Low Calorie Protein Shake (EAS Advantage Carb Control), 1 small apple, orange, peach, pear (one that you can tuck in your palm) Faroese Yogurt (has 20 grams of carb, 2 ounces of lean protein) or 6 ounce light yogurt 1/3 cup hummus with celery sticks and baby carrots Low Carb Light Wrap (1-2 slices lean meat), lettuce, tomato, 1 tsp light [place] dressing (There are many options which are both high in fiber and low in calories--100 calories or less per wrap) documented in this encounterAshtabula County Medical Center12-26-2024 History of Present illness Narrative* [...] ([place]) [address] [place] [address] History of Present Illness Manolo Roche is a 89 year old male presents today for evaluation of DM Type 1. Here with and son. 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 Per patient, this was done due to [...] (PROBIOTIC-10 ORAL) Take by mouth once daily. ikbyuj-fyyedqvc-zwfkpue (CREON) 24,000-76,000 -120,000 unit cpDR Take 2 capsules by mouth three times daily with meals. and 1 with snacks (8/day) Digestive [employer]zyme Mixtures lutein-zeaxanthin 25-5 mg cap Take by mouth once daily. Alternative Therapy - Antioxidant Omeprazole Magnesium 20 mg tablet Take 20 mg by mouth. Gastric Acid Secretion Communications Specialist - Proton PumpInhibitors (PPIs) PARoxetine (PAXIL) 40 mg tablet Take 40 mg by mouth every morning. Antidepressant - Selective Serotonin Reuptake Inhibitors (SSRIs) tamsulosin (FLOMAX) 0.4 mg Take 0.4 mg by mouth. Prostatic Hypertrophy Agent - hlnaq-5-GcmncsgjhfspOxqftxdxbpe Physical Activity: No formal program Diet: CHO Controlled Diet SMBG Frequency of Monitoring: Four times a Day Summary of Personal CGM Findings: Dates worn: 06/22/24-07/05/24 CGM Type: [employer] 1- CGM recording is adequate for interpretation. [...] ains abnormal data COMPREHENSIVE METABOLIC PANEL Order: [id number] Component Ref Range & Units 5 mo [...] that does not use a race coefficient. [facility] MAIN LAB Specimen Collected: 01/24/24 6:05 AM Performed by: Meitu Last Resulted: 01/24/24 7:22 AM Received From: [employer] Result Received: 07/06/24 9:37 AM Impression/Recommendations IMPRESSION [...] LDL , TG LIPID PANEL (EXTERNAL) Order: [id number] Component Ref Range & Units 5 mo ago Cholesterol 150 - 200 mg/dL 97 Low Triglycerides 27 - 150 mg/dL 38 HDL Cholesterol >39 mg/dL 50 VLDL 0 - 30 mg/dL 8 LDL (calc) <130 mg/dL 39 Cholesterol:HDL Ratio 1.0 - 5.0 1.9 Resulting Agency [facility] Specimen Collected: 01/22/24 6:06 AM Performed by: KEZIAYellloh Last Resulted: 01/22/24 1:58 PM Received From: [employer] Result Received: 07/06/24 9:37 AM -- This [...] which included preparing to see the patient, vknp-um-tdaf patient care, completing clinical documentation, counseling and educating the patient/family/caregiver, ordering medications, tests, or procedures, and communicating results to the mary ent/family/caregiver. Ayana Zavala APRN.KALANI (Signed electronically to expedite mailing) documented in this encounterAshtabula County Medical Center12-26-2024 NoteHNO ID: [id number] Author: AYANA ZAVALA APRN.KALANI Service: ? Author Type: Nurse Practitioner Type: Progress Notes Filed: 07/06/2024 12:36 Note Text: Endocrinology Initial Diabetes Assessment Manolo Roche is here for a consultation regarding: DM Type 2 My final recommendations will be communicated back to the requesting physician by way of shared Medical record or letter to requesting physician via US mail. PCP is DO Marie Rodriguez ([facility]) [address] [place] [address] History of Present Illness Manolo Roche is a 89 year old male presents today for evaluation of DM Type 1. Here with and son. 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 Per patient, this was done due to [...] (PROBIOTIC-10 ORAL) Take by mouth once daily. shfnvh-zaxtejds-jfyimec (CREON) 24,000-76,000 -120,000 unit cpDR Take 2 capsules by mouth three times daily with meals. and 1 with snacks (8/day) Digestive Enzyme Mixtures lutein-zeaxanthin 25-5 mg cap Take by mouth once daily. Alternative Therapy - Antioxidant Omeprazole Magnesium 20 mg tablet Take 20 mg by mouth. Gastric Acid Secretion Communications Specialist - Proton Pump Inhibitors (PPIs) PARoxetine (PAXIL) 40 mg tablet Take 40 mg by mouth every morning. Antidepressant - Selective Serotonin Reuptake Inhibitors (SSRIs) tamsulosin (FLOMAX) 0.4 mg Take 0.4 mg by mouth. Prostatic Hypertrophy Agent - gbxbj-2-Mhoasjecmmnx Antagonists Physical Activity: No formal program Diet: [...] meals *Nocturnal hypoglycemia n (more content not included)...[facility]12-23-2024 History of Present illness Narrative* Beto [...] Sheridan in 1-2 weeks. documented in this encounterHarry S. Truman Memorial Veterans' HospitalVaoftxkfct90-33-4998 History of Present illness Narrative* Marie Tejeda [...] 06/23/2018 Added automatically from request for surgery [id number] Left ventricular dysfunction Lumbar spondylosis OA (osteoarthritis) Pancreatitis Hospitalized Rotator cuff tendonitis SURGICAL HISTORY: Past Surgical History: Procedure Laterality Date APPENDECTOMY 1948 CERVICAL DISCECTOMY [address] ANGIOGRAM HEART CORONARY 01/21/2024 CT ANGIOGRAM TAVR 01/21/2024 FINE NEEDLE ASPIRATION 04/2018 HEART CATH 04/2023 heart cath HIP SURGERY Right 04/2023 right hip surgery OTHER SURGICAL HISTORY 04/2024 ICD placement PARTIAL HIP ARTHROPLASTY Right 04/12/2023 [place] TONSILLECTOMY & ADENOIDECTOMY <AGE 14 SPLENECTOMY, TOTAL [...] Depression - At risk (01/21/2024) Received from [employer] PHQ-2 Total Score: 3 FAMILY HISTORY: Family [...] mg, 2 times daily before meals pancrelipase, Xdj-Lghw-Aomr, (Creon) 84062-65359 units capsule TAKE 2 CAPSULES BY MOUTH [...] . Reviewed recent hospitalization documented in this encounterHarry S. Truman Memorial Veterans' HospitalYosnzfkrgl28-55-7073 Evaluation note* Diagnosis Onset Date Resolution Status [...] 16, 2024 6:08pmPleuritic chest painresolvedJanuary 2024 6:08pm [facility] Work Phone: 1(341) 672-952412-06-2024 Evaluation note* Diagnosis Onset Date Resolution Status [...] GI bleedingresolvedFebruary 2024 9:56amCoronary artery disease involving [place]atak coronary artery of [place]at[place] heart wiinactiveFebruary 2024 9:56amHypertensioninactiveFebruary 2024 9:56amS/P PTCA (percutaneous transluminal coronary angioplasty)inactiveFebruary 2024 9:56am [facility] Work Phone: 1([phone]) 693-548911-19-2024 History of Present illness Narrative* Marie Tejeda, - 05/30/2024 2:00 PM EST Images from the original note were not included. Manolo Roche is a 89 y.o. male presents with chief complaint of Hospital Follow-up HPI: HPI History of Present Illness The patient presents for evaluation of multiple medical concerns. He is managing his insulin pump independently, with an upcoming appointment with his spikemaking supervisor on 07/06/2024. His blood sugar levels have [...] Flowsheet Row Patient Outreach from 05/29/2024 in [facility] with Alejandrina Santamaria LPN Hospital Information ED, Hospital or Senior Care Facility Discharge? Hospital Patient has been contacted within two business days of discharge Yes Diagnosis ICD placement Discharge Date 05/25/24 Discharged To: Home Setting Discharge Hospital [facility] Engagement Call Start Time 1019 Admission [...] prostatic hyperplasia) COPD (chronic obstructive pulmonary disease) ([facility]) Diabetes mellitus ([facility]) 10/04/2019 Ground glass opacity present on imaging of lung 02/05/2023 Hypertension (CMS/HCC) ICD (implantable cardioverter-defibrillator) in place IPMN (intraductal papillary mucinous neoplasm) 06/23/2018 Added automatically from request for surgery [id number] Left ventricular dysfunction Lumbar spondylosis OA (osteoarthritis) Pancreatitis Hospitalized Rotator cuff tendonitis SURGICAL HISTORY: Past Surgical History: Procedure Laterality Date APPENDECTOMY 1949 CERVICAL DISCECTOMY [address] ANGIOGRAM HEART CORONARY 01/21/2024 CT ANGIOGRAM TAVR 01/21/2024 FINE NEEDLE ASPIRATION 04/2018 HEART CATH 04/2023 heart cath HIP SURGERY Right 04/2023 right hip surgery PARTIAL HIP ARTHROPLASTY Right 04/12/2023 [place] TONSILLECTOMY & ADENOIDECTOMY <AGE 14 SPLENECTOMY, 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 [facility] [place] VASECTOMY 1989 SOCIAL HISTORY: Social [...] Depression - At risk (01/21/2024) Received from [employer] PHQ-2 Total Score: 3 FAMILY HISTORY: Family [...] mg, 2 times daily before meals pancrelipase, Htk-Rbjp-Tnvw, (Creon) 01550-25763 units capsule TAKE 2 CAPSULES BY MOUTH [...] next month until his appointment with the spikemaking supervisor on July 06, 2024. Endo apt at [...] assistance of MARYANN Hedrick. documented in this encounterHarry S. Truman Memorial Veterans' HospitalHpmqmedywo26-31-2846 [place] [address] Discharge Summary Signed Patient: Manolo Roche MR#: [id number] : 1935 Acct:[id number] Age/Sex: 89 / M Adm Date: 4 Loc: Room: [address] [place] [address]: Abdulaziz Root MD Copies to: [...] s/p pancreatectomy, BPH who initially presented [facility] in Apr 2023 following a mechanical fall [...] for discharge and will follow-up with his research kennel supervisor as well as electrophysiology in the pacemaker [...] on June 01, 2024 at 1:00pm at [facility] - Device check: Will be [...] Sodium 138, Potassium 4.0, Chloride 103, Carbon Oxlnczc79.5, Anion Gap 11.5, BUN 19, Creatinine 0.75, [...] 05/12 11/02 1135 Signed By: 05/25/24 1139 [facility]11-14-2024 [place] [address] Cardiology Progress Note Signed Patient: Manolo Roche MR#: [id number] : 1935 Acct:[id number] Age/Sex: 89 / M Adm Date: 4 Loc: Room: [address] [place] [address] Type: ADM IN Attending Dr: Abdulaziz Root [...] 05/12 11/02 1035 Signed By: 05/25/24 1041 [facility]11-13-2024 Discharge summary Author Chuck Velasco [facility] HospitalNote Date/TimeNovember 2023 11:39am [place] [address] Discharge Summary Signed Patient: Manolo Roche MR#: [id number] : 1935 Acct:[id number] Age/Sex: 89 / M Adm Date: 4 Loc: Room: [address] [place] [address]: Abdulaziz Root MD Copies to: [...] s/p pancreatectomy, BPH who initially presented [facility] in Apr 2023 following a mechanical fall [...] for discharge and will follow-up with his research kennel supervisor as well as electrophysiology in the pacemaker [...] on June 01, 2024 at 1:00pm at [facility] - Device check: Will be [...] Sodium 138, Potassium 4.0, Chloride 103, Carbon Decqcfx64.5, Anion Gap 11.5, BUN 19, Creatinine 0.75, [...] <Electronically signed by Chuck Velasco MD> 05/25/24 1134 [facility] Work Phone: 1(727) 963-796510-16-2024 Evaluation note* [facility] 20[facility] 3:55pm# CAD s/p PCI in Jul 2023. 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 Current smoker. [facility] 04/30/23 - Two-vessel coronary artery disease- 100% prox LAD occlusion; 80% D1; LCx has 50% prox stenosis with 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 Echo 04/28/23 - EF 40-45%, mild LVH, trace MR and TR. 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 EKG 09/07/23 - sinus peace 56 bpm, anterolateral TWI. EKG 09/08/23 - sinus peace 58 bpm, anterolateral and inferior TWI. ECHO in January 2024 at [facility]: EF 30-35% ECHO 03/09/2024: ECHO which showed [...] up in 2 months in HF clinic. [facility] Work Phone: 1(378) 181-907310-16-2024 Evaluation note* Author Anat Perez [facility] 2023 2:55pm# CAD s/p PCI in Jul 2023. 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 Current smoker. [facility] 04/30/23 - Two-vessel coronary artery disease- 100% prox LAD occlusion; 80% D1; LCx has 50% prox stenosis with 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 Echo 04/28/23 - EF 40-45%, mild LVH, trace MR and TR. 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 EKG 09/07/23 - sinus peace 56 bpm, anterolateral TWI. EKG 09/08/23 - sinus peace 58 bpm, anterolateral and inferior TWI. ECHO in January 2024 at [facility]: EF 30-35% ECHO 03/09/2024: ECHO which showed [...] up in 2 months in HF clinic. [facility] Work Phone: [phone]) [phone] Chief complaint+Reason for visit Narrative * Chief [...] Type 1 diabetes mellitus July 16 6:08pm [facility] Work Phone: 1(589) 421-748710-16-2024 Chief complaint+Reason for visit Narrative * Chief [...] Type 1 diabetes mellitus July 16 6:08pm [facility] Work Phone: 1(172) 797-257310-14-2024 History of Present illness Narrative* Agnes Moreno, [...] 06/23/2018 Added automatically from request for surgery [id number] Left ventricular dysfunction Lumbar spondylosis OA (osteoarthritis) Pancreatitis Hospitalized Rotator cuff tendonitis SURGICAL HISTORY: Past Surgical History: Procedure Laterality Date APPENDECTOMY 1949 CERVICAL DISCECTOMY [address] ANGIOGRAM HEART CORONARY 01/21/2024 CT ANGIOGRAM TAVR 01/21/2024 FINE NEEDLE ASPIRATION 04/2018 HEART CATH 04/2023 heart cath HIP SURGERY Right 04/2023 right hip surgery PARTIAL HIP ARTHROPLASTY Right 04/12/2023 IA TONSILLECTOMY & ADENOIDECTOMY <AGE 14 SPLENECTOMY, TOTAL [...] Depression - At risk (01/21/2024) Received from [employer] PHQ-2 Total Score: 3 FAMILY HISTORY: Family [...] mg, 2 times daily before meals pancrelipase, Qps-Oyio-Vxlj, (Creon) [id number] units capsule TAKE 2 CAPSULES BY MOUTH [...] He has been in contact with his assembler golf wood head, but has notreceived any further communication. He [...] 06/23/2018 Added automatically from request for surgery [id number] Left ventricular dysfunction Lumbar spondylosis OA (osteoarthritis) Pancreatitis Hospitalized Rotator cuff tendonitis SURGICAL HISTORY: Past Surgical History: Procedure Laterality Date APPENDECTOMY 194 CERVICAL DISCECTOMY [address] ANGIOGRAM HEART CORONARY 01/21/2024 CT ANGIOGRAM TAVR 01/21/2024 FINE NEEDLE ASPIRATION 04/2018 HEART CATH 04/2023 heart cath HIP SURGERY Right 04/2023 right hip surgery PARTIAL HIP ARTHROPLASTY Right 04/12/2023 IA TONSILLECTOMY & ADENOIDECTOMY <AGE 14 SPLENECTOMY, 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 STOMACH SURGERY 12/2021 Stomach Ulcer Surgery - [facility] [place] VASECTOMY 1989 SOCIAL HISTORY: [...] Depression - At risk (01/21/2024) Received from [employer] PHQ-2 Total Score: 3 FAMILY HISTORY: Family [...] mg, 2 times daily before meals pancrelipase, Yrd-Rlik-Xlao, (Creon) [id number] units capsule TAKE 2 CAPSULES BY MOUTH [...] blood sugar levels. A referral to an spikemaking supervisor, Dr. Liyah Yeung, has been made to [...] for follow-up. Diagnosis Plan 1. Pancreatic insufficiency ([facility]/HCC) Ambulatory referral to Endocrinology 2. Coronary arteriosclerosis ([facility]) metoprolol succinate XL (Toprol-XL) 25 MG 24 hr tablet 3. 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([facility]) Ambulatory referral to Endocrinology 4. 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 I am following Dr Tejeda's established plan of care for these issues. Dr Tejeda is in the office suite today and is supervising patient care. documented in this encounterHarry S. Truman Memorial Veterans' [id number] History of Present illness Narrative* Marie Tejeda, [...] was black, leading to his transfer to [facility]. He had an ulnar fracture and a [...] prostatic hyperplasia) COPD (chronic obstructive pulmonary disease) ([facility]) Diabetes mellitus (CMS/HCC) 10/04/2019 Ground glass opacity present on imaging of lung 02/05/2023 Hypertension (CMS/HCC) IPMN (intraductal papillary mucinous neoplasm) 06/23/2018 Added automatically from request for surgery [id number] Left ventricular dysfunction Lumbar spondylosis OA (osteoarthritis) Pancreatitis Hospitalized Rotator cuff tendonitis SURGICAL HISTORY: Past Surgical History: Procedure Laterality Date APPENDECTOMY 194 CERVICAL DISCECTOMY [address] ANGIOGRAM HEART CORONARY 01/21/2024 CT ANGIOGRAM TAVR 01/21/2024 FINE NEEDLE ASPIRATION 04/2018 HEART CATH 04/2023 heart cath HIP SURGERY Right 04/2023 right hip surgery PARTIAL HIP ARTHROPLASTY Right 04/12/2023 IA TONSILLECTOMY & ADENOIDECTOMY <AGE 14 SPLENECTOMY, 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 STOMACH SURGERY 12/2021 Stomach Ulcer Surgery - [facility] [place] VASECTOMY 1989 SOCIAL HISTORY: [...] Not at risk (04/05/2024) Received from [facility] PHQ-2 Patient Health Questionnaire-2 Score: 0 Recent Concern: Depression - At risk (01/21/2024) Received from [employer] PHQ-2 Total Score: 3 FAMILY HISTORY: [...] Sublingual NovoLOG FLEXPEN 100 UNIT/ML pen pancrelipase, Fex-Haxo-Nnyr, (Creon) [id number] units capsule TAKE 2 CAPSULES BY MOUTH [...] mellitus with hyperosmolarity without nonketotic hyperglycemic hyperosmolar coma([facility]) POCT glycosylated hemoglobin (Hb A1C) docked device 3. Generalized anxiety disorder ([facility]) PARoxetine (Paxil) 40 MG tablet 4. Need for immunization against influenza Flu vaccine, trivalent, adjuvanted, preservative free 5. Acquired total absence of pancreas 6. Benign prostatic hyperplasia with urinary frequency 7. 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 H pylori ulcer see note to GI 10. 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 I recommended referral to specialty clinic for DM/pancreatectomy 11. Insulin pump in place 12. Pancreatic insufficiency ([facility]) 13. Duodenal ulcer see letter to GI cont PPI stop carafate - out of concern for binding meds 14. Medicare annual wellness visit, subsequent 15. ACP (advance care planning) 16. Bradycardia on low dose BB no changes for now 17. Orthostatic hypotension all BP meds stopped except for BB 18. Acute on chronic systolic congestive heart failure ([facility]) NYHA 3 Stgae D educated on importance [...] A note will be sent to the assembler golf wood head to discuss the possibility of using a [...] Wednesday for follow-up. 90+' documented in this encounterHarry S. Truman Memorial Veterans' [id number] Note Attestation signed by Patrick Beard MD at 04/14/2024 12:12 PM I saw and evaluated the patient. I reviewed the resident's/fellow's note and agree with the findings and plan documents in the resident's/fellow's note [facility] Gastroenterology New Patient Visit - History & [...] and splenectomy in 2019 at [facility] in [place]. Patient was referred for the gastroenterology clinic to be established as a new patient regarding his history of peptic ulcer disease with a recent EGD finding in [facility] in February 04, 2024 after he was [...] follow-up scheduled. PREVIOUS LABS/IMAGING/ENDOSCOPY: EGD 02/05/2024 in [facility]: Showing gastritis with anastomosis ulcer with visible [...] Type 1 diabetes mellitus (CMS/HCC) Diabetes mellitus ([facility]/HCC) Acute GI bleeding Anemia of chronic disease Postoperative anemia Arthralgia of hip ASCVD (arteriosclerotic cardiovascular disease) Barretts esophagus Benign prostatic hyperplasia BMI 20.0-20.9, adult Closed intertrochanteric fracture of right hip ([facility]/HCC) Closed nondisplaced fracture of fourth cervical vertebra with routine healing Fracture of C5 vertebra, closed ([facility]/HCC) Current moderate episode of major 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 (CMS/HCC) Dyslipidemia E coli infection Elevated d-dimer Essential hypertension Fracture of cervical spinous process (CMS/HCC) Fractured hip ([facility]/HCC) Hip fracture due to osteoporosis, sequela Anxiety and depression Generalized anxiety disorder Gram negative sepsis ([facility]/HCC) Duodenal ulcer H pylori ulcer Stomach ulcer H/O splenectomy Helicobacter pylori (H. 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 ([facility]/HCC) Hypomagnesemia Impaired mobility and activities of daily living Insulin pump in place IPMN (intraductal papillary mucinous neoplasm) Iron deficiency Ischemic myocardial dysfunction Left carpal tunnel syndrome Left radial fracture Leukemoid reaction Melena Mild left ventricular systolic dysfunction (LVSD) Mixed hyperlipidemia Need for immunization against influenza Non-ST elevation (NSTEMI) myocardial infarction ([facility]/HCC) Nonsustained monomorphic ventricular tachycardia ([facility]/HCC) Osteoporosis Perforated viscus Pneumonia of both lungs due to infectious organism Protein-calorie malnutrition, mild ([facility]/HCC) Pyelonephritis Recent fracture of hip ([facility]/HCC) Smoker Sepsis without acute organ dysfunction ([facility]/HCC) Sepsis due to Escherichia coli without acute organ dysfunction ([facility]/HCC) S/P PTCA (percutaneous transluminal coronary angioplasty) Sepsis due to urinary tract infection ([facility]) Traumatic rhabdomyolysis ([facility]) Two-vessel coronary artery disease Closed lumbar vertebral fracture ([facility]) Past Medical History: History reviewed. No pertinent past medical history. Past Surgical History: History reviewed. No p (more content not included)...[facility]09-04-2024 Anthony left a message last week for telecom coordinator Irish with [facility] regarding a referral from Dr. Barraza's office to get clarification on what needs done this patient. Spoke with Irish and patient needs to be seen in the office for a second opinion regarding a gastrojejunal ulcer. Did call and leave a message for Mr. Roche to call and schedule an office appointment with Dr. Valerio Plummer and call back # of [phone]. [facility]07-29-2024 Progress note Author Anat Perez [facility] February 07, 2024 5:07pmNote Date/TimeJuly 2023 3:18pm[place] [address] Cardiology Progress Note Signed Patient: Manolo Roche MR#: [id number] : 1935 Acct:[id number] Age/Sex: 88 / M Adm Date: 4 Loc: Room: [address] [place] [address] Type: ADM IN Attending Dr: Warren Gross DO Copies to: ~ Date of Service: 02/07/2024 Subjective Interval history: Mr. Roche is a 88yo M with the PMH below who is admitted to [facility] on 02/06/24 for melanotic stool and a [...] ordered for him after recent hospital stayin [place]. On admission, stool occult blood was positive. [...] MPV Neut % (Auto) Lymph % (Auto) Guadalupe % (Auto) Eos % (Auto) Baso % (Auto) Nucleat RBC Rel Count Neut # (Auto) Lymph # (Auto) [place]upe # (Auto) Eos # (Auto) Baso # (Auto) PHA Creatinine Clear Sodium Potassium Chloride Carbon Dioxide Anion Gap BUN Creatinine Est GFR (CKD-EPI) Glucose POC Glucose 377 POC Glucose Comment Glu2: cleaned meter Estimat Average Glucose 194 Hemoglobin A1c 8.4 H Calcium Magnesium Blood Type A Positive Antibody Screen Negative Crossmatch ([facility]) See Detail 02/06/24 02/06/24 02/06/24 20:51 20:51 20:53 Corrected WBC Uncorrected WBC Count RBC Hgb Hct MCV MCH MCHC RDW Plt Count MPV Neut % (Auto) Lymph % (Auto) Gu[place]upe % (Auto) Eos % (Auto) Baso % (Auto) Nucleat RBC Rel Count Neut # (Auto) Lymph # (Auto) Gu[place]upe # (Auto) Eos # (Auto) Baso # (Auto) PHA Creatinine Clear Sodium Potassium Chloride Carbon Dioxide Anion Gap BUN Creatinine Est GFR (CKD-EPI) Glucose POC Glucose 547 H* 523 H* POC Glucose Comment Will notify dr/rn Glu2: cleaned meter Estimat Average Glucose Hemoglobin A1c Calcium Magnesium Blood Type Antibody Screen Crossmatch ([facility]) 02/06/24 02/06/24 02/06/24 20:53 20:53 22:12 Corrected WBC Uncorrected WBC Count RBC Hgb 9.0 L Hct 26.4 L MCV MCH MCHC RDW Plt Count MPV Neut % (Auto) Lymph % (Auto) Guadalupe % (Auto) Eos % (Auto) Baso % (Auto) Nucleat RBC Rel Count Neut # (Auto) Lymph # (Auto) Gu[place]upe # (Auto) Eos # (Auto) Baso # (Auto) PHA Creatinine Clear Sodium Potassium Chloride Carbon Dioxide Anion Gap BUN Creatinine Est GFR (CKD-EPI) Glucose POC Glucose POC Glucose Comment Will notify dr/rn Follow hypoglycemic Estimat Average Glucose Hemoglobin A1c Calcium Magnesium Blood Type Antibody Screen Crossmatch ([facility]) 02/07/24 02/07/24 02/07/24 06:21 06:35 11:12 Corrected WBC 7.2 Uncorrected WBC Count 7.2 RBC 3.24 L Hgb 8.7 L Hct 25.3 L MCV 78.1 L MCH 26.7 L MCHC 34.2 RDW 19.3 H Plt Count 184 MPV 10.8 H Neut % (Auto) 47.8 Lymph % (Auto) 28.8 Guadalupe % (Auto) 16.7 Eos % (Auto) 5.5 Baso % (Auto) 1.2 Nucleat RBC Rel Count 0.2 Neut # (Auto) 3.4 Lymph # (Auto) 2.1 Guadalupe # (Auto) 1.2 H Eos # (Auto) [...] 1.6 L Blood Type Antibody Screen Crossmatch ([facility]) A&P - Cardiology (1) Acute GI bleeding: Code(s): K92.2 - Gastrointestinal hemorrhage, unspecified (2) Elevated troponin: Code(s): R79.89 - Other specified abnormal findings of blood chemistry (3) Coronary artery disease involving [place] coronary artery of [place] heart without angina pectoris: Code(s): I25.10 - Atherosclerotic heart disease of [place] coronary artery without angina pectoris (4) S/P PTCA (percutaneous transluminal coronary angioplasty): Code(s): Z98.61 - Coronary angioplasty status Plan # Acute recurrent GI Bleed in setting of known PUD (recent EGD on 09/01/23 found a 2 cm ulcer with anonbleeding visible vessel at the bulb of the duodenum). # CAD s/p PCI in Jul 2023. # Ischemic Cardiomyopathy s/p LifeVest ordered in [place] - Well compensated. # Non-ACS myocardial injury - Is due to demand-supply mismatch 2/2 acute anemia. 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 Current smoker. [facility] 04/30/23 - Two-vessel coronary artery disease- 100% prox LAD occlusion; 80% D1; LCx has 50% prox stenosis with 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 Echo 04/28/24 - EF 40-45%, mild LVH, trace MR and TR. 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 EKG 09/07/23 - sinus peace 56 bpm, anterolateral TWI. EKG 09/08/23 - sinus peace 58 bpm, anterolateral and inferior TWI. - Pt is currently 6 months out from PCI. Will stop Plavix and if Hb remains stable, continue ASA 81mg daily. - Reviewed records from hospitalization at [facility] [place] in [place]. He was hospitalized for NSTEMI and PNA. [...] follow Documented By: Anat Perez MD 02/07/24 0214 Signed By: <Electronically signed by Anat Perez MD> 02/07/24 1702 [facility] Work Phone: 1(125) 488-556707-29-2024 Progress note Author Warren Gross [facility] February 07, 2024 12:28pmNote Date/TimeJuly 2023 12:29pm[place] [address] Hospitalist Progress Note Signed Patient: Manolo Roche MR#: [id number] : 1935 Acct:[id number] Age/Sex: 88 / M Adm Date: 4 Loc: Room: [address] [place] [address] Type: ADM IN Attending Dr: Warren Gross [...] Insuln.Pen SUBCUT 02/05/25 21:59 Not Given TID.WM.HS ON LICENSE OF [facility] Protocol Insulin Aspart 0 units 02/07/24 08:00 02/07/24 10:58 Insulin Aspart 300 Units/3 Ml Insuln.Pen SUBCUT 02/06/25 07:59 Not Given TID.WITH.MEALS ON LICENSE OF [facility] Protocol Insulin Glargine 6 units 02/07/24 09:00 [...] (1,000 Units) Tablet PO 02/06/25 08:59 DAILY ON LICENSE OF [facility] A&P - Hospitalist Assessment/Plan (1) Acute GI [...] <Electronically signed by Warren Gross DO> 02/07/241227 [facility] Work Phone: 1(797) 947-351607-29-2024 [facility] Progress note Author Sushant Cordon [facility] February 06, 2024 9:45pmNote Date/TimeJuly 2023 9:45pmHy[place] [address] Progress Note Signed Patient: Manolo Roche MR#: [id number] : 1935 Acct:[id number] Age/Sex: 88 / M Adm Date: 4 Loc: Room: [address] [place] [address] Type: ADM IN Attending Dr: Nayeli Jimenez MD Copies to: ~ Date of Service: 02/06/2024 Progress Narrative Note PROGRESS NOTE Progress Note: Today the patient has developed progressively worsening hyperglycemia. The patient has history of total pancreatectomy a few years ago when he lived [facility]. He uses a G7 continuous glucose monitoring [...] <Electronically signed by Sushant Cordon DO> 02/06/242144 [facility] Work Phone: 1(956) 256-248107-28-2024 Consult note Author Chuck Velasco [facility] February 06, 2024 2:44pmNote Date/TimeJuly 2023 2:36pmHy[place] [address] Cardiology Consult Note Signed Patient: Manolo Roche MR#: [id number] : 1935 Acct:[id number] Age/Sex: 88 / M Adm Date: 4 Loc: 3T Room: [address] [place] [address] Type: ADM IN Attending Dr: Nayeli Jimenez MD Copies to: MD Nayeli Varner MD Robert J Vaschak,DO~ Cardiology HPI History of Present Illness Consult Date: 02/06/24 Reason for Consult: GI Bleeding HPI: Mr. Roche is a 88yo M with the PMH below who is admitted to [facility] on 02/06/24 for melanotic stool and a [...] ordered for him after recent hospital stayin [place]. On admission, stool occult blood was positive. Severe anemia of 7.7, with normal Plt of 277. Troponin was mildly elevated at 50--77--85. EKG shows sinus peace with anterolateral and inferior TWI. Review of Systems Review of Systems All other systems reviewed & are negative unless noted below or in HPI [facility] Medical History Hypertension CAD (coronary artery disease) [...] days #30 tabs 05/07/23 [Rx Confirmed 02/05/24] rpunbn-oiicblvy-jlkdrgu 24,000-76,000-120,000 unit capsule,delayed rel (Creon) 2cap PO [...] unit subcut HS 08/31/23 [History Confirmed 10/28/23] xjbcaybdjpnn-iakbfiko-iiyysz tablet (Multivitamin 50 Plus tablet) 1 tab [...] 90 days #180tabs 11/11/23 [Rx Confirmed 10/28/23] dqyxyx-wrqcnjtp-vwwayrm 24,000-76,000-120,000 unit capsule,delayed rel (Creon) 1cap PO [...] Lymph # (Auto) 1.5 1.8 (1.00-4.8) x10E3/uL Guadalupe # (Auto) 0.4 0.7 (0.0-0.8) x10E3/uL Eos [...] 8 MG/HR 10 mls/hr IV .Q10H TAVIA Rx#:[id number] Sodium Chloride 0.9% 1,000 ml 1 1000 / 1000 ,000 ml @ 999 mls/hr IV .Q1H1M ONE Rx#:[id number] Oral 0 / 0 Output: Urine 350 / 350 Other: Total Intake (Blood Product) Cumulative Amt Leukocyte Reduced Rbc Unit 325 [id number] Leukocyte Reduced Rbc Unit 325 [id number] Weight 65.5 kg 65.5 kg Date of Last Bowel Movement 02/06/24 02/06/24 Lab 02/05/24 19:34 PT 15.5 H INR 1.3 APTT 23.6 L A&P - Cardiology (1) Acute GI bleeding: Code(s): K92.2 - Gastrointestinal hemorrhage, unspecified (2) Elevated troponin: Code(s): R79.89 - Other specified abnormal findings of blood chemistry (3) Coronary artery disease involving [place] coronary artery of [place]ak heart without angina pectoris: Code(s): I25.10 - Atherosclerotic heart disease of [place] coronary artery without angina pectoris (4) S/P PTCA (percutaneous transluminal coronary angioplasty): Code(s): Z98.61 - Coronary angioplasty status Plan # Acute recurrent GI Bleed in setting of known PUD (recent EGD on 09/01/23 found a 2 cm ulcer with anonbleeding visible vessel at the bulb of the duodenum). # CAD s/p PCI in Jul 2023. # Cardiomyopathy s/p LifeVest ordered in [place] - Well compensated. # Non-ACS myocardial injury - Is due to demand-supply mismatch 2/2 acute anemia. 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 Current smoker. [facility] 04/30/23 - Two-vessel coronary artery disease- 100% prox LAD occlusion; 80% D1; LCx has 50% prox stenosis with 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 Echo 04/28/24 - EF 40-45%, mild LVH, trace MR and TR. 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 EKG 09/07/23 - sinus peace 56 bpm, anterolateral TWI. EKG 09/08/23 - sinus peace 58 bpm, anterolateral and inferior TWI. - Get records from [place] on recent hospitalization and LifeVest. - GI [...] signed by Chuck Velasco MD> 02/06/24 1444 [facility] Work Phone: 1(645) 317-118507-28-2024 Progress note Author Nayeli Jimenez [facility] February 06, 2024 12:35pmNote Date/TimeJuly 2023 12:35pmHy[place] [address] Hospitalist Progress Note Signed Patient: Manolo Roche MR#: [id number] : 1935 Acct:[id number] Age/Sex: 88 / M Adm Date: 4 Loc: 3T Room: 5I8787-6 Type: ADM IN Attending Dr: Nayeli Jimenez MD Copies to: ~ Date of Service: 02/06/2024 Subjective Subjective Narrative: Patient was seen evaluated at bedside, remained afebrile, hemodynamically appears stable, patient denies any BMs while here. Seen by GI team recommended cardiac clearance given his cardiac hx. Will obtain records from [place] as pt recently been there for concerns [...] (1,000 Units) Tablet PO 02/06/25 08:59 DAILY ON LICENSE OF [facility] A&P - Hospitalist Assessment/Plan (1) Acute GI [...] signed by Nayeli Jimenez MD> 02/06/24 1235 [facility] Work Phone: 1(949) 644-746407-28-2024 Consult note Author Manuel Barraza [facility] February 06, 2024 9:36amNote Date/TimeJuly 2023 9:[address] [place] [address] Gastroenterology Consult Note Signed Patient: Manolo Roche MR#: [id number] : 1935 Acct:[id number] Age/Sex: 88 / M Adm Date: 4 Loc: Room: [address] [place] [address] Type: ADM IN Attending Dr: Nayeli Jimenez MD Copies to: MD Nayeli Rendon MD Robert J Vaschak,DO~ HPI Data of Consult Date of Consultation: 02/06/24 Requesting Physician: Nayeli Jimenez MD Consult Narrative History of present illness: Mr. Roche is a 88 year old male admitted with syncopal episode. Briefly, the patient presented earlier this month to the [facility] after being found down, unresponsive noted low blood sugars. He was ultimately transferred to [facility] in [place]. Noted a nondisplaced ulnar fracture, atypical PNA, [...] weeks ago, prior to his admission in [place]. She does not think he is on his PPI any longer, she believes he completed treatment with that. Remote colonoscopy she reports as normal. On admission BPs initially soft, but fluid responsive. Hgb down ~2 gram from discharge from [place] 2 weeks ago. Uptrending troponin. Havingsome dynamic [...] Hematologic/Lymphatic: Denies easy bruising and Denies lymphadenopathy [facility] Medical History (Updated 02/06/24 @ 02:47 by [...] days #30 tabs 05/07/23 [Rx Confirmed 02/05/24] fleglt-zjqozrix-ckwiyhn 24,000-76,000-120,000 unit capsule,delayed rel (Creon) 2cap PO [...] unit subcut HS 08/31/23 [History Confirmed 10/28/23] qxdjjqtanyyp-xchjmpja-azkleb tablet (Multivitamin 50 Plus tablet) 1 tab [...] 90 days #180tabs 11/11/23 [Rx Confirmed 10/28/23] iwzgun-zxeadhes-nlxjswt 24,000-76,000-120,000 unit capsule,delayed rel (Creon) 1cap PO [...] % (Auto) 78.3 Lymph % (Auto) 16.3 Guadalupe % (Auto) 4.8 Eos % (Auto) 0.2 Baso % (Auto) 0.4 Nucleat RBC Rel Count 0.1 Neut # (Auto) 7.0 Lymph # (Auto) 1.5 Guadalupe # (Auto) 0.4 Eos # (Auto) 0.0 [...] Type A Positive Antibody Screen Negative Crossmatch ([facility]) See Detail 02/06/24 06:56 Corrected WBC Uncorrected WBC Count RBC Hgb Hct MCV MCH MCHC RDW Plt Count MPV Neut % (Auto) Lymph % (Auto) Guadalupe % (Auto) Eos % (Auto) Baso % (Auto) Nucleat RBC Rel Count Neut # (Auto) Lymph # (Auto) Guadalupe # (Auto) Eos # (Auto) Baso # [...] signed by Manuel Barraza MD> 02/06/24 0936 [facility] Work Phone: 1(304) 462-545807-28-2024 History and physical note Author Sushant Cordon [facility] February 06, 2024 2:52amNote Date/TimeJuly 2023 2:22[place] [address] Hospitalist H&P Signed Patient: Manolo Roche MR#: [id number] : 1935 Acct:[id number] Age/Sex: 88 / M Adm Date: 4 Loc: Room: [address] [place] [address] Type: ADM IN Attending Dr: Sushant Cordon [...] for him after recent hospital stay in [place]. 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 He describes that yesterday was terrible [...] state that after coming home from the [facility] with the LifeVest he beganusing Aleve due to the discomfort theLifeVest was causing on his back. He doessay I never took more than prescribed. He does recall getting the endoscopy by Dr. Shearer back in November but did not really seem to fully comprehend the results. He says that now a [facility] hospital was he originally went to [facility] where theydid an EKG and then promptly transported him to [facility]. At [facility] he does not know all the [...] except as mentioned elsewhere in the documentation. 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 He is wearing the [employer]. Jean Paul continuous glucose monitoring device on [...] % (Auto) 16.3 % (.) 02/05/24 19:34 Guadalupe % (Auto) 4.8 % (.) 02/05/24 19:34 Eos % (Auto) 0.2 % (.) 02/05/24 19:34 Baso % (Auto) 0.4 % (.) 02/05/24 19:34 Nucleat RBC Rel Count 0.1 /100 WBC (0-0.5) 02/05/24 19:34 Neut # (Auto) 7.0 x10E3/uL (1.8-7.7) 02/05/24 19:34 Lymph # (Auto) 1.5 x10E3/uL (1.00-4.8) 02/05/24 19:34 Guadalupe # (Auto) 0.4 x10E3/uL (0.0-0.8) 02/05/24 19:34 [...] <Electronically signed by Sushant Cordon DO> 02/06/24251 [facility] Work Phone: 1(632) 545-791004-11-2024 Evaluation note* Author Alberto Shearer [facility] HospitalAuthoredApril 2023 8:44xv15-ayuk-sib man with history of coronary artery disease s/p stent placement on 07/16/2023 who was recently hospitalized for melena s/p EGD with control of bleeding who came today for follow-up. 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 pylori, patient completed quadruple therapy, he has been on Protonix 40 mg twice daily since the EGD. -Will arrange for EGD to assess ulcer healing and to confirm H. pylori eradication. -I discussed with the patient possible Lewis's diagnosis and recommended EGD every 3 to 5 years. 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 He will follow up with primary Cardiology next week [facility] Work Phone: 1(162) 457-646502-05-2024 Miscellaneous Notes* Assessment & Plan Note - [...] Problem(s): ASHD (arteriosclerotic heart disease) Jun 2023 [facility] presented due to mechanical fall. Incidental troponin elevations Echo EF 40-45% Cath: two-vessel disease; ef 40% anterior hypokinesis Elective PCI: Jul LAD: unsuccessful attempt - ADMINISTRATIVE SALES ASSISTANT oDiag PCI/Mark 3.5 x 18mm Daily activity < 4 METs documented in [facility]Mc[facility] Work Phone: 1([phone]) 745-723102-05-2024 Evaluation + Plan note* Assessment & Plan Note - JAMIE Miramontes - 08/16/2023 2:37 PM ESTAssociated Problem(s): ASHD (arteriosclerotic heart disease) Jun 2023 [facility] presented due to mechanical fall. Incidental troponin elevations Echo EF 40-45% Cath: two-vessel disease; ef 40% anterior hypokinesis Elective PCI: Jul LAD: unsuccessful attempt - ADMINISTRATIVE SALES ASSISTANT oDiag PCI/Crawford 3.5 x 18mm Daily activity < 4 METs [facility] Work Phone: 1([phone]) 339-386102-05-2024 History of Present illness Narrative* JAMIE Miramontes [...] to date. Will be seeking POCfrom primary research kennel supervisor. Patient reports that overall has complaint(s) of [...] to Plavix. Will schedule follow-up with primary research kennel supervisor Dr. Perez next week. Review of Systems [...] Assessment: ASHD (arteriosclerotic heart disease) Jun 2023 [facility] presented due to mechanical fall. Incidental troponin elevations Echo EF 40-45% Cath: two-vessel disease; ef 40% anterior hypokinesis Elective PCI: Jul LAD: unsuccessful attempt - ADMINISTRATIVE SALES ASSISTANT oDiag PCI/Mark 3.5 x 18mm Daily activity [...] to the office Sammy Berman MSN, JAMIE, PMHNP-[facility] Please excuse any errors in grammar or translation related to this dictation. Voice recognition software was utilized to prepare this document. documented in [facility]Mc[facility] Work Phone: 1(559) 291-501202-05-2024 Instructions* Patient Instructions* JAMIE Miramontes - 08/16/2023 [...] medications to the office documented in [facility]Mc[facility] Work Phone: [phone]) 261-473201-05-2024 Discharge summary Author Federico Ryan [facility] July 16, 2023 4:09pmNote Date/TimeJan2023 4:06[place] [id number] Discharge Summary Signed Patient: Manolo Roche MR#: [id number] : 1935 Acct:[id number] Age/Sex: 88 / M Adm Date: 4 [...] the LAD with 3.5 x 18 mm Crawford stent 5. Chronic total occlusion proximal/mid LAD [...] branch. LAD was attempted and deemed a ADMINISTRATIVE SALES ASSISTANT and therefore aborted, diagonal branch was stented with a 3.5 x 18 mm Crawford stent without complications Patient will be discharged [...] % (Auto) 75.7, Lymph % (Auto) 8.4, Guadalupe % (Auto) 15.1, Eos % (Auto) 0.3, Baso % (Auto) 0.5, Nucleat RBC Rel Count 0.1, Neut # (Auto) 6.3, Lymph # (Auto) 0.7 L, Guadalupe # (Auto) 1.3 H, Eos # (Auto) [...] doctor or pharmacist, without first calling the research kennel supervisor who implanted the stent. If you require [...] weight lifting, stair steppers, etc. until the research kennel supervisor approves these activities. Check with the research kennel supervisor on your first follow-up visit. CALL YOUR PHYSICIAN at [phone]: -If bleeding should occur from the catheter insertion site- apply pressure to the site then immediately call us. -Report any fever, redness, drainage, increased swelling, or firmness at the catheter insertion site. Some bruising or slight swelling may be present at thetime of discharge. -Should arm or leg become cold, numb, white, or blue, contact the research kennel supervisor immediately. -IF you should experience episodes of [...] is recommended. Please call Central Scheduling at [phone] to schedule your appointment.] The attending research kennel supervisor or [facility] nurse clinician should provide you with specific instructions regarding activity, diet, medications, and further follow up for you. Follow the medication instructions provided on your discharge. If the dosages and instructions on this sheet differ from the dosage and instructions on the bottle, follow the instructions on the bottle. [facility] is not responsible for incorrect prescription [...] 30 Days Qty: 30 0RF Follow Up: [facility] [Outside] - 08/16/23 2:00 pm Documented By: Federico Davis DO 07/16/23 1602 Signed By: <Electronically signed by Federico Davis DO> 07/16/23 1609 [facility] Work Phone: 1([phone]) 499-843801-05-2024 [facility]11-[facility] History of Present illness Narrative* Govind [...] Future 3. NSTEMI (non-ST elevated myocardial infarction) ([facility]/HCC) - Follow Up In Cardiology; Future 4. Essential hypertension 5. Diabetes mellitus type II, non insulin dependent ([facility]) 6. Closed fracture of right hip, initial encounter ([facility]) documented in this encounterMc[facility] Work Phone: 1([phone]) 721-501411-14-2023 Instructions* Patient Instructions* Lori Pelayo LPN - [...] time of your visit. documented in this encounterMcKitrick Hospital Work Phone: 1(492) 782-423711-10-2023 Evaluation note* Encounter Date Diagnosis Assessment Notes Treatment Notes Treatment Clinical Notes May, Closed displaced int ertrochanteric fracture of right femur, initial encounter (ICD-10 - S72.141A) Radiographs of right hip was reviewed with the patient today, along with a physical examination. Patient should continue with PT. Continue use of pain medication to control pain. [facility] Other 10-27-2023 Progress note Author Fredi Merdano [facility] May 07, 2023 12:48pmNote Date/TimeOctober 2022 12:36[place] [address] Physiatry(Rehab) Progress Note Signed Patient: Manolo Roche MR#: [id number] : 1935 Acct:[id number] Age/Sex: 88 / M Adm Date: 3 Loc: Room: [address] [place] [address] Type: ADM IN Attending Dr: Fredi Medrano [...] 40s. Patient was brought to [facility] where imaging demonstrated mildly displaced right [...] mg 05/03/23 16:59 Bisacodyl 10 Mg Supp.Rect IA 05/02/24 16:58 DAILY PRN Constipation Calcium Carbonate [...] 16:59 Docusate Enema 283 Mg/5 Ml Enema IA 05/02/24 16:58 DAILY PRN Constipation Enoxaparin Sodium [...] Insuln.Pen SUBCUT 05/02/24 16:59 6 units TID.WITH.MEALS ON LICENSE OF [facility] Administration Protocol Insulin Aspart 0 units 05/03/23 18:00 05/07/23 12:13 Insulin Aspart 300 Units/3 Ml Insuln.Pen SUBCUT 05/02/24 17:59 2 units ACHS ON LICENSE OF [facility] Administration Protocol Insulin Glargine 7 [...] Code(s): I25.10 - Atherosclerotic heart disease of [place] coronary artery without angina pectoris Status: Acute [...] Code(s): I25.10 - Atherosclerotic heart disease of [place] coronary artery without angina pectoris Status: Acute (9) Postoperative pain, acute, hip: Code(s): G89.18 - Other acute postprocedural pain; M25.559 - Pain in unspecified hip Status: Acute Plan 88-year-old male presenting to acute inpatient rehabilitation unit with functional impairments secondary to right hip fracture s/p repair. Hospital course complicated by non-[place] troponin elevation. Hewas found to have two-vessel [...] equipment to enhance the patient's a functional presybeterian Ensure adequate nutrition and hydration Sleep no issues Pain: Continue current regimen. Discharge planning Home with in 7 to 10 days. I spent greater than 15 minutes for services, including odaj-hv-fzhz encounter with the patient, discussion of the case, plan of care, and exam; and txcbflk-uk-tmzl activities, such as reviewing pertinent java consultant documentation, recent therapy notes, laboratory and radiology studies, and discussion of case with care team including physician, nursing, telephonic nurse case manager, and therapists. More than 50 % of time was spent on patient/family counseling or coordination ofcare. Plan: I completed a substantive portion of this encounter, the medical decision makingportion of this note in its entirety, including Allied health note review, nursing note review, java consultant note review,discussion with nursing and case management, and more than 50% of my time was spent on counseling and coordination of care, time spent 25 minutes Patient was personally seen by me, Dr. Medrano, on the day of encounter, reviewed the history and the relevant portions of the chart, including current orders, allied health and java consultant notes, labs/imaging and performed smyth elements of exam and I formulated the plan of care and facilitated the medical decision making. Documented By: Fredi Medrano MD 1234 Signed By: <Electronically signed by Fredi Medrano MD> 05/07/23 1248 [facility] Work Phone: 1(390) [phone] Progress note Author Fredi Medrano [facility] May 06, 2023 2:46pmNote Date/TimeOctober 2022 12:53[place] [address] Physiatry(Rehab) Progress Note Signed Patient: Manolo Roche MR#: [id number] : 1935 Acct:[id number] Age/Sex: 88 / M Adm Date: 3 Loc: Room: [address] [place] [address] Type: ADM IN Attending Dr: Fredi Medrano [...] 40s. Patient was brought to [facility] ER where imaging demonstrated mildly displaced right [...] mg 05/03/23 16:59 Bisacodyl 10 Mg Supp.Rect IA 05/02/24 16:58 DAILY PRN Constipation Calcium Carbonate [...] 16:59 Docusate Enema 283 Mg/5 Ml Enema IA 05/02/24 16:58 DAILY PRN Constipation Enoxaparin Sodium [...] Insuln.Pen SUBCUT 05/02/24 16:59 7 units TID.WITH.MEALS ON LICENSE OF [facility] Administration Protocol Insulin Aspart 0 units 05/03/23 18:00 05/06/23 06:38 Insulin Aspart 300 Units/3 Ml Insuln.Pen SUBCUT 05/02/24 17:59 Not Given ACHS ON LICENSE OF [facility] Protocol Insulin Glargine 7 units [...] mg DAILY TAVIA Administration Assessment/Plan <Teena Victoria, MED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 - Last Filed: 05/06/23 13:14> Assessment/Plan (1) Closed intertrochanteric fracture of right hip: Code(s): S72.141A - Displaced intertrochanteric fracture of right femur, initial encounter for closed fracture Status: Acute (2) CAD (coronary artery disease): Code(s): I25.10 - Atherosclerotic heart disease of [place] coronary artery without angina pectoris Status: Acute [...] Code(s): I25.10 - Atherosclerotic heart disease of [place] coronary artery without angina pectoris Status: Acute (9) Postoperative pain, acute, hip: Code(s): G89.18 - Other acute postprocedural pain; M25.559 - Pain in unspecified hip Status: Acute Plan 88-year-old male presenting to acute inpatient rehabilitation unit with functional impairments secondary to right hip fracture s/p repair. Hospital course complicated by non-IN troponin elevation. Hewas found to have two-vessel [...] equipment to enhance the patient's a functional presybeterian Ensure adequate nutrition and hydration Sleep no issues Pain: Continue current regimen. Discharge planning Home with in 7 to 10 days. I spent greater than 15 minutes for services, including bgxu-ez-lydg encounter with the patient, discussion of the case, plan of care, and exam; and ljasanw-dm-wovs activities, such as reviewing pertinent java consultant documentation, recent therapy notes, laboratory and radiology studies, and discussion of case with care team including physician, nursing, telephonic nurse case manager, and therapists. More than 50 % of [...] the chart, including currentorders, allied health and java consultant notes, labs/imaging and plan of care as above. Documented By: Teena Victoria APRN 05/06/23 1 250 Signed By: <Electronically signed by AMADA Victoria> 05/06/23 1314 <Electronically signed by Fredi Medrano MD> 05/06/23 1446 [facility] Work Phone: 1([phone]) 524-562210-26-2023 Consult note Author Vidya Robert [facility] May 06, 2023 1:15pmNote Date/TimeOct2022 3:49[place] [address] Hospitalist Consult Note Signed Patient: Manolo Roche MR#: [id number] : 1935 Acct:[id number] Age/Sex: 88 / M Adm Date: 3 Loc: Room: 9E5372-1 Type: ADM IN Attending Dr: Fredi Medrano [...] negative unless noted below or in HPI [facility] Medical History (Updated 05/04/23 @ 16:15 by [...] Allergies Allergy (Verified 04/28/23 12:20) Home Medications ypaiea-fvsrjftv-xcmcaxa 24,000-76,000-120,000 unit capsule,delayed rel (Creon) 2cap PO [...] mg 05/03/23 16:59 Bisacodyl 10 Mg Supp.Rect IA 05/02/24 16:58 DAILY PRN Constipation Calcium Carbonate [...] 16:59 Docusate Enema 283 Mg/5 Ml Enema IA 05/02/24 16:58 DAILY PRN Constipation Enoxaparin Sodium [...] % (Auto) 64.9, Lymph % (Auto) 23.0, Guadalupe % (Auto) 9.9, Eos % (Auto) 1.5, Baso % (Auto) 0.7, Nucleat RBC Rel Count 0.2, Neut # (Auto) 4.6, Lymph # (Auto) 1.6, Guadalupe # (Auto) 0.7, Eos # (Auto) 0.1, [...] Documented By: Nidia Wright APRN 04/12 11/01 5550 Signed By: <Electronically signed by AMADA Wright> 05/05/23 1989 <Electronically signed by Vidya Robert MD> 05/06/23 1314 [facility] Work Phone: 1(244) 539-552310-25-2023 Progress note Author Fredi Medrano [facility] May 05, 2023 1:10pmNote Date/TimeOctober 2022 1:11pm[place] [address] Physiatry(Rehab) Progress Note Signed Patient: Manolo Roche MR#: [id number] : 1935 Acct:[id number] Age/Sex: 88 / M Adm Date: 3 Loc: Room: [address] [place] [address] Type: ADM IN Attending Dr: Fredi Medrano [...] 40s. Patient was brought to [facility] ER where imaging demonstrated mildly displaced right [...] mg 05/03/23 16:59 Bisacodyl 10 Mg Supp.Rect IA 05/02/24 16:58 DAILY PRN Constipation Calcium Carbonate [...] 16:59 Docusate Enema 283 Mg/5 Ml Enema IA 05/02/24 16:58 DAILY PRN Constipation Enoxaparin Sodium [...] Code(s): I25.10 - Atherosclerotic heart disease of [place] coronary artery without angina pectoris Status: Acute [...] Code(s): I25.10 - Atherosclerotic heart disease of [place] coronary artery without angina pectoris Status: Acute (9) Postoperative pain, acute, hip: Code(s): G89.18 - Other acute postprocedural pain; M25.559 - Pain in unspecified hip Status: Acute Plan 88-year-old male presenting to acute inpatient rehabilitation unit with functional impairments secondary to right hip fracture s/p repair. Hospital course complicated by non-[place] troponin elevation. Hewas found to have two-vessel [...] equipment to enhance the patient's a functional presybeterian Ensure adequate nutrition and hydration Sleep no issues Pain: Continue current regimen. Discharge planning Home with in 7 to 10 days. Plan: I completed a substantive portion of this encounter, the medical decision makingportion of this note in its entirety, including Allied health note review, nursing note review, java consultant note review,discussion with nursing and case management, and more than 50% of my time was spent on counseling and coordination of care, time spent 25 minutes Patient was personally seen by me, Dr. Medrano, on the day of encounter, reviewed the history and the relevant portions of the chart, including current orders, allied health and java consultant notes, labs/imaging and performed smyth elements of exam and I formulated the plan of care and facilitated the medical decision making. Documented By: Fredi Medrano MD 1308 Signed By: <Electronically signed by Fredi Medrano MD> 05/05/23 1310 [facility] Work Phone: 1([phone]) 201-716710-25-2023 History and physical note Author Fredi Medrano [facility] May 05, 2023 10:01amNote Date/TimeOct2022 11:35[place] [address] Physiatry (Rehab) H&P Signed Patient: Manolo Roche MR#: [id number] : 1935 Acct:[id number] Age/Sex: 88 / M Adm Date: 3 Loc: Room: [address] [place] [address] Type: ADM IN Attending Dr: Fredi Medrano [...] 40s. Patient was brought to [facility] ER where imaging demonstrated mildly displaced right [...] two-story home. Does not use assistive devices. [facility] Medical History Anxiety and depression BPH (benign [...] 12:20) Home and Active Meds: Home Medications wetfsx-wxjbjiea-bqdiaek 24,000-76,000-120,000 unit capsule,delayed rel (Creon) 2cap PO [...] Bisacodyl (Bisacodyl 10 Mg Supp.Rect) 10 mg IA DAILY PRN PRN Reason: Constipation Stop: 05/02/24 [...] Enema 283 Mg/5 Ml Enema) 283 mg IA DAILY PRN PRN Reason: Constipation Stop: 05/02/24 16:58 Enoxaparin Sodium (Enoxaparin 40 Mg/0.4 Ml Syringe) 40 mg SUBCUT DAILY@1000 ON LICENSE OF [facility] Stop: 05/03/24 09:59 Insulin Aspart (Insulin Aspart 300 Units/3 Ml Insuln.Pen) 0 units SUBCUT TID.WITH.MEALS ON LICENSE OF [facility]; Protocol Stop: 05/02/24 16:59 Last Admin: 05/04/23 08:27 Dose: 7 units Insulin Aspart (Insulin Aspart 300 Units/3 Ml Insuln.Pen) 0 units SUBCUT ACHS ON LICENSE OF [facility]; Protocol Stop: 05/02/24 17:59 Last Admin: 05/04/23 08:27 Dose: 1 units Insulin Glargine (Insulin Glargine 300 Units/3 Ml Insuln.Pen) 7 units SUBCUT BID ON LICENSE OF [facility] Stop: 05/02/24 20:59 Last Admin: [...] 30 Mg Tablet) 30 mg PO DAILY ON LICENSE OF [facility] Stop: 05/03/24 08:59 Last Admin: 05/04/23 08:10 Dose: 30 mg Sennosides (Sennosides 8.6 Mg Tablet) 2 tab PO DAILY@12 PRN PRN Reason: If no BM in 2 days Stop: 05/03/24 11:59 Sodium Chloride (Sodium Chloride 0.9 % 10 Ml Syringe) 0 ml IV-PUSH PRN PRN PRN Reason: Flush Stop: 05/02/24 16:58 Tamsulosin HCl (Tamsulosin 0.4 Mg Cap.Er.24h) 0.4 mg PO DAILY ON LICENSE OF [facility] Stop: 05/03/24 08:59 Last Admin: 05/04/23 08:10 Dose: 0.4 mg Triamcinolone Acetonide (Triamcinolone 0.1% Cream 15 Gm Tube) 1 applic TOPICAL QID PRN PRN Reason: Irritation Stop: 05/02/24 17:10 Valsartan (Valsartan 80 Mg Tablet) 80 mg PO DAILY ON LICENSE OF [facility] Stop: 05/03/24 08:59 Last Admin: [...] % (Auto) 64.9 Lymph % (Auto) 23.0 Guadalupe % (Auto) 9.9 Eos % (Auto) 1.5 Baso % (Auto) 0.7 Nucleat RBC Rel Count 0.2 Neut # (Auto) 4.6 Lymph # (Auto) 1.6 Guadalupe # (Auto) 0.7 Eos # (Auto) 0.1 [...] MPV Neut % (Auto) Lymph % (Auto) Guadalupe % (Auto) Eos % (Auto) Baso % (Auto) Nucleat RBC Rel Count Neut # (Auto) Lymph # (Auto) Guadalupe # (Auto) Eos # (Auto) Baso # [...] 24 hour daily monitoring and intervention from Sonogram Technician as well as other consulting physicians including internal medicine as well as 24 hour daily accounting system expert nursing - for medical safe / [...] Code(s): I25.10 - Atherosclerotic heart disease of [place] coronary artery without angina pectoris Status: Acute [...] Code(s): I25.10 - Atherosclerotic heart disease of [place] coronary artery without angina pectoris Status: Acute (9) Postoperative pain, acute, hip: Code(s): G89.18 - Other acute postprocedural pain; M25.559 - Pain in unspecified hip Status: Acute Plan 88-year-old male presenting to acute inpatient rehabilitation unit with functional impairments secondary to right hip fracture s/p repair. Hospital course complicated by non-[place] troponin elevation. Hewas found to have two-vessel [...] equipment to enhance the patient's a functional presybeterian Ensure adequate nutrition and hydration Sleep no issues Pain: Continue current regimen. Discharge planning Home with in 7 to 10 days. I spent greater than 45 minutes for services, including hcho-sf-sfsm encounter with the patient, discussion of the case, plan of care, and exam; and fzccksc-ea-swnd activities, such as reviewing pertinent java consultant documentation, recent therapy notes, laboratory and radiology studies, and discussion of case with care team including physician, nursing, telephonic nurse case manager, and therapists. More than 50 % of time was spent on patient/family counseling or coordination ofcare. Plan: I completed a substantive portion of this encounter, the medical decision makingportion of this note in its entirety, including Allied health note review, nursing note review, java consultant note review,discussion with nursing and case management, and more than 50% of my time was spent on counseling and coordination of care, time spent 70 minutes Patient was personally seen by me, Dr. Medrano, on the day of encounter, within 24 hours of rehab admission, reviewed the history and the relevant portions of the chart, including current orders, allied health and java consultant notes, labs/imaging and performed smyth elements of exam and I formulatedthe planof care and facilitated the medical decision making. Documented By: Teena Victoria APRN 05/04/23 1 122 Signed By: <Electronically signed by AMADA Victoria> 05/04/23 1209 <Electronically signed by Fredi Medrano MD> 05/05/23 1001 [facility] Work Phone: 1(974) 885-450510-23-2023 Progress note Author Ashwini Conrad [facility] May 03, 2023 12:02pmNote Date/TimeOct2022 11:[address] [address] Orthopedic Progress Note Signed Patient: Manolo Roche MR#: [id number] : 1935 Acct:[id number] Age/Sex: 88 / M Adm Date: 3 Loc: 4N Room: [address] [place] [address] Type: ADM IN Attending Dr: Humberto Diaz [...] Code(s): I25.10 - Atherosclerotic heart disease of [place] coronary artery without angina pectoris Status: Acute [...] by Ashwini Conrad MD> 05/03/23 1202 [facility] Work Phone: 1([phone]) 121-701410-22-2023 Progress note Author Sushant Cordon [facility] May 02, 2023 2:35pmNote Date/TimeOct2022 2:35[place] [address] Hospitalist Progress Note Signed Patient: Manolo Roche MR#: [id number] : 1935 Acct:[id number] Age/Sex: 88 / M Adm Date: 3 Loc: N Room: [address] [place] [address] Type: ADM IN Attending Dr: Sushant Cordon [...] mg 04/28/23 17:19 Bisacodyl 10 Mg Supp.Rect IA 04/27/24 17:18 DAILY PRN Constipation Calcium Carbonate [...] Units/3 Ml Insuln.Pen SUBCUT 05/01/24 16:59 TID.WITH.MEALS ON LICENSE OF [facility] Protocol Insulin Glargine 7 units [...] additional questions. Documented By: Sushant Cordon DO 1281 Signed By: <Electronically signed by Sushant Cordon DO> 05/02/23 1435 [facility] Work Phone: 1(424) 117-844710-22-2023 Progress note Author Ashwini Conrad [facility] May 02, 2023 2:12pmNote Date/TimeOctober 2022 2:12[place] [address] Orthopedic Progress Note Signed Patient: Manolo Roche MR#: [id number] : 1935 Acct:[id number] Age/Sex: 88 / M Adm Date: 3 Loc: 4N Room: [address] [place] [address] Type: ADM IN Attending Dr: Sushant Cordon [...] MPV Neut % (Auto) Lymph % (Auto) [place] % (Auto) Eos % (Auto) Baso % (Auto) Nucleat RBC Rel Count Neut # (Auto) Lymph # (Auto) [place] # (Auto) Eos # (Auto) Baso # [...] % (Auto) 71.9 Lymph % (Auto) 13.7 [place] % (Auto) 13.5 Eos % (Auto) 0.8 Baso % (Auto) 0.1 Nucleat RBC Rel Count 0.0 Neut # (Auto) 6.2 Lymph # (Auto) 1.2 [place] # (Auto) 1.2 H Eos # (Auto) [...] MPV Neut % (Auto) Lymph % (Auto) [place] % (Auto) Eos % (Auto) Baso % (Auto) Nucleat RBC Rel Count Neut # (Auto) Lymph # (Auto) [place] # (Auto) Eos # (Auto) Baso # (Auto) PHA Creatinine Clear Sodium Potassium Chloride Carbon Dioxide Anion Gap BUN Creatinine Est GFR (CKD-EPI) Glucose POC Glucose 376 POC Glucose Comment Calcium Triglycerides Cholesterol LDL Cholesterol, Calc VLDL Cholesterol HDL Cholesterol Cholesterol/HDL Ratio Assessment / Plan Assessment and plan (1) Two-vessel coronary artery disease: Code(s): I25.10 - Atherosclerotic heart disease of [place] coronary artery without angina pectoris Status: Acute [...] signed by Ashwini Conrad MD> 05/02/23 1412 [facility] Work Phone: 1(959) 368-633010-22-2023 Progress note Author Harsh Martines [facility] May 02, 2023 10:49amNote Date/TimeOct2022 10:[place] 258[address]70 Cardiology Progress Note Signed Patient: Manolo Roche MR#: [id number] : 1935 Acct:[id number] Age/Sex: 88 / M Adm Date: 3 Loc: 4N Room: 2I8432-5 Type: ADM IN Attending Dr: Sushant Cordon [...] is to be determined by 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 Davis Exam Physical Exam Vital [...] MPV Neut % (Auto) Lymph % (Auto) [place] % (Auto) Eos % (Auto) Baso % (Auto) Nucleat RBC Rel Count Neut # (Auto) Lymph # (Auto) [place] # (Auto) Eos # (Auto) Baso # [...] % (Auto) 71.9 Lymph % (Auto) 13.7 [place] % (Auto) 13.5 Eos % (Auto) 0.8 Baso % (Auto) 0.1 Nucleat RBC Rel Count 0.0 Neut # (Auto) 6.2 Lymph # (Auto) 1.2 [place] # (Auto) 1.2 H Eos # (Auto) [...] MPV Neut % (Auto) Lymph % (Auto) [place] % (Auto) Eos % (Auto) Baso % (Auto) Nucleat RBC Rel Count Neut # (Auto) Lymph # (Auto) [place] # (Auto) Eos # (Auto) Baso # [...] Code(s): I25.10 - Atherosclerotic heart disease of [place] coronary artery without angina pectoris Status: Acute [...] coronary intervention Documented By: Harsh Martines MD, [facility] 3 1047 Signed By: <Electronically signed by MD JOAO Martines> 05/02/23 1049 [facility] Work Phone: 1(139) 792-421410-21-2023 Progress note Author Sushant Cordon [facility] May 01, 2023 3:13pmNote Date/TimeOct2022 3:09[place] [address] Hospitalist Progress Note Signed Patient: Manolo Roche MR#: [id number] : 1935 Acct:[id number] Age/Sex: 88 / M Adm Date: 3 Loc: 4N Room: [address] [place] [address] Type: ADM IN Attending Dr: Sushant Cordon [...] mg 04/28/23 17:19 Bisacodyl 10 Mg Supp.Rect IA 04/27/24 17:18 DAILY PRN Constipation Calcium Carbonate [...] Insuln.Pen SUBCUT 04/27/24 21:59 Not Given TID.WM.HS ON LICENSE OF [facility] Protocol Insulin Glargine 7 units [...] signed by Sushant Cordon DO> 05/01/23 1513 [facility] Work Phone: 1([phone]) 208-221410-21-2023 Progress note Author Harsh Martines [facility] May 01, 2023 12:24pmNote Date/TimeOct2022 12:21[place] [address] Cardiology Progress Note Signed Patient: Manolo Roche MR#: [id number] : 1935 Acct:[id number] Age/Sex: 88 / M Adm Date: 3 Loc: 4N Room: 9W2847-2 Type: ADM IN Attending Dr: Sushant Cordon [...] MPV Neut % (Auto) Lymph % (Auto) [place] % (Auto) Eos % (Auto) Baso % (Auto) Nucleat RBC Rel Count Neut # (Auto) Lymph # (Auto) [place] # (Auto) Eos # (Auto) Baso # [...] MPV Neut % (Auto) Lymph % (Auto) [place] % (Auto) Eos % (Auto) Baso % (Auto) Nucleat RBC Rel Count Neut # (Auto) Lymph # (Auto) [place] # (Auto) Eos # (Auto) Baso # [...] MPV Neut % (Auto) Lymph % (Auto) [place] % (Auto) Eos % (Auto) Baso % (Auto) Nucleat RBC Rel Count Neut # (Auto) Lymph # (Auto) [place] # (Auto) Eos # (Auto) Baso # [...] MPV Neut % (Auto) Lymph % (Auto) [place] % (Auto) Eos % (Auto) Baso % (Auto) Nucleat RBC Rel Count Neut # (Auto) Lymph # (Auto) [place] # (Auto) Eos # (Auto) Baso # [...] % (Auto) 68.2 Lymph % (Auto) 16.8 [place] % (Auto) 14.1 Eos % (Auto) 0.6 Baso % (Auto) 0.3 Nucleat RBC Rel Count 0.1 Neut # (Auto) 6.0 Lymph # (Auto) 1.5 [place] # (Auto) 1.2 H Eos # (Auto) [...] MPV Neut % (Auto) Lymph % (Auto) [place] % (Auto) Eos % (Auto) Baso % (Auto) Nucleat RBC Rel Count Neut # (Auto) Lymph # (Auto) [place] # (Auto) Eos # (Auto) Baso # [...] Code(s): I25.10 - Atherosclerotic heart disease of [place] coronary artery without angina pectoris Status: Acute [...] coronary intervention Documented By: Harsh Martines MD, [facility] 3 1220 Signed By: <Electronically signed by MD JOAO Martines> 05/01/23 1224 [facility] Work Phone: 1([phone]) 380-622410-21-2023 Progress note Author Ashwini Conrad [facility] May 01, 2023 11:31amNote Date/TimeOctober 2022 11:31[place] [address] Orthopedic Progress Note Signed Patient: Manolo Roche MR#: [id number] : 1935 Acct:[id number] Age/Sex: 88 / M Adm Date: 3 Loc: 4N Room: [address] [place] [address] Type: ADM IN Attending Dr: Sushant Cordon [...] % (Auto) 79.2 Lymph % (Auto) 5.9 [place] % (Auto) 14.6 Eos % (Auto) 0.0 Baso % (Auto) 0.3 Nucleat RBC Rel Count 0.1 Neut # (Auto) 7.4 Lymph # (Auto) 0.6 L [place] # (Auto) 1.4 H Eos # (Auto) [...] MPV Neut % (Auto) Lymph % (Auto) [place] % (Auto) Eos % (Auto) Baso % (Auto) Nucleat RBC Rel Count Neut # (Auto) Lymph # (Auto) [place] # (Auto) Eos # (Auto) Baso # [...] MPV Neut % (Auto) Lymph % (Auto) [place] % (Auto) Eos % (Auto) Baso % (Auto) Nucleat RBC Rel Count Neut # (Auto) Lymph # (Auto) [place] # (Auto) Eos # (Auto) Baso # [...] MPV Neut % (Auto) Lymph % (Auto) [place] % (Auto) Eos % (Auto) Baso % (Auto) Nucleat RBC Rel Count Neut # (Auto) Lymph # (Auto) [place] # (Auto) Eos # (Auto) Baso # [...] MPV Neut % (Auto) Lymph % (Auto) [place] % (Auto) Eos % (Auto) Baso % (Auto) Nucleat RBC Rel Count Neut # (Auto) Lymph # (Auto) [place] # (Auto) Eos # (Auto) Baso # [...] % (Auto) 68.2 Lymph % (Auto) 16.8 [place] % (Auto) 14.1 Eos % (Auto) 0.6 Baso % (Auto) 0.3 Nucleat RBC Rel Count 0.1 Neut # (Auto) 6.0 Lymph # (Auto) 1.5 [place] # (Auto) 1.2 H Eos # (Auto) [...] MPV Neut % (Auto) Lymph % (Auto) [place] % (Auto) Eos % (Auto) Baso % (Auto) Nucleat RBC Rel Count Neut # (Auto) Lymph # (Auto) [place] # (Auto) Eos # (Auto) Baso # [...] Code(s): I25.10 - Atherosclerotic heart disease of [place] coronary artery without angina pectoris Status: Acute [...] by Ashwini Conrad MD> 05/01/23 1131 [facility] Work Phone: 1(596) 891-614810-20-2023 Progress note Author Sushant Cordon [facility] April 30, 2023 9:13pmNote Date/TimeOct2022 9:13[place] [address] Hospitalist Progress Note Signed Patient: Manolo Roche MR#: [id number] : 1935 Acct:[id number] Age/Sex: 88 / M Adm Date: 3 Loc: 4N Room: 3H1935-4 Type: ADM IN Attending Dr: Sushant Cordon [...] mg 04/28/23 17:19 Bisacodyl 10 Mg Supp.Rect IA 04/27/24 17:18 DAILY PRN Constipation Calcium Carbonate [...] Mg/0.4 Ml Syringe SUBCUT 04/30/24 09:59 DAILY@1000 ON LICENSE OF [facility] Glucose 0 gm 04/28/23 17:14 [...] Lactated Ringers IV 04/29/24 16:44 Not Given .[id number] ON LICENSE OF [facility] Cefazolin Sodium 1 gm in 50 mls [...] signed by Sushant Cordon DO> 04/30/232112 [facility] Work Phone: 1([phone]) 174-356110-20-2023 Hospital Discharge instructions Additional Instructions Rehab to [...] high armed straight-backed chair. 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 -Continue to use walker [...] OTHER -Any problems- Call the office at [phone] or return to Emergency Room. -If you are having excessive or persistent pain, swelling, fever (oral temp >101), yellow-green foul smelling drainage or bleeding from incision, excessive redness of incision, nausea, vomiting, or any other problems, you should first call your surgeon at [phone] for advice. If you are unable to contact your surgeon, seek help from a hospital emergency room. FOLLOW UP -Call my office the first business day after discharge and ask for assistance with post-discharge plans, and appointments.[facility] Work Phone: 1([phone]) 205-369510-20-2023 Progress note Author Anat Perez [facility] April 30, 2023 10:32amNote Date/TimeOct2022 10:[address] [address] Cardiology Progress Note Signed Patient: Manolo Roche MR#: [id number] : 1935 Acct:[id number] Age/Sex: 88 / M Adm Date: 3 Loc: 4N Room: [id number] Type: ADM IN Attending Dr: Sushant Cordon [...] events overnight. Denies chest pain or dyspnea. [facility] scheduledfor this AM (findings as below) Exam [...] MPV Neut % (Auto) Lymph % (Auto) [place] % (Auto) Eos % (Auto) Baso % (Auto) Nucleat RBC Rel Count Neut # (Auto) Lymph # (Auto) [place] # (Auto) Eos # (Auto) Baso # [...] MPV Neut % (Auto) Lymph % (Auto) [place] % (Auto) Eos % (Auto) Baso % (Auto) Nucleat RBC Rel Count Neut # (Auto) Lymph # (Auto) [place] # (Auto) Eos # (Auto) Baso # [...] % (Auto) 60.6 Lymph % (Auto) 22.0 [place] % (Auto) 16.4 Eos % (Auto) 0.6 Baso % (Auto) 0.4 Nucleat RBC Rel Count 0.1 Neut # (Auto) 5.4 Lymph # (Auto) 2.0 [place] # (Auto) 1.5 H Eos # (Auto) [...] MPV Neut % (Auto) Lymph % (Auto) [place] % (Auto) Eos % (Auto) Baso % (Auto) Nucleat RBC Rel Count Neut # (Auto) Lymph # (Auto) [place] # (Auto) Eos # (Auto) Baso # [...] MPV Neut % (Auto) Lymph % (Auto) [place] % (Auto) Eos % (Auto) Baso % (Auto) Nucleat RBC Rel Count Neut # (Auto) Lymph # (Auto) [place] # (Auto) Eos # (Auto) Baso # [...] 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 - Discussed with assistant- Dr Davis regarding timing of intervention- given [...] signed by Anat Perez MD> 04/30/23 1032 [facility] Work Phone: 1(323) 355-410410-20-2023 [facility] Progress note Author Sushant Cordon [facility] April 29, 2023 6:28pmNote Date/TimeOct2022 6:28[place] [address] Hospitalist Progress Note Signed Patient: Manolo Roche MR#: [id number] : 1935 Acct:[id number] Age/Sex: 88 / M Adm Date: 3 Loc: 4N Room: [address] [place] [address] Type: ADM IN Attending Dr: Sushant Cordon [...] mg 04/28/23 17:19 Bisacodyl 10 Mg Supp.Rect IA 04/27/24 17:18 DAILY PRN Constipation Calcium Carbonate [...] Dextrose-Lactated Ringers IV 04/27/24 17:14 125 mls/hr .[id number] TAVIA Administration Lactated Ringer's 1,000 mls @ [...] <Electronically signed by Sushant Cordon DO> 04/29/231827 [facility] Work Phone: 1([phone]) 462-152310-19-2023 Consult note Author Anat Perez [facility] April 29, 2023 5:34pmNote Date/TimeOct2022 5:07pmHy[place] [address] Cardiology Consult Note Signed Patient: Manolo Roche MR#: [id number] : 1935 Acct:[id number] Age/Sex: 88 / M Adm Date: 3 Loc: 4N Room: [address] [place] [address] Type: ADM IN Attending Dr: Sushant Cordon [...] negative unless noted below or in HPI [facility] Medical History (Updated 04/29/23 @ 17:34 by [...] 18 unit subcutHS 04/28/23 [History Confirmed 04/28/23] fejxqa-kmtmpjxv-vfskavx 24,000-76,000-120,000 unit capsule,delayed rel (Creon) 2cap PO [...] x10E3/uL Lymph # (Auto) 2.0 (1.00-4.8) x10E3/uL [place] # (Auto) 1.1 H (0.0-0.8) x10E3/uL Eos [...] ,000 ml @ 125 mls/hr IV .Q8H ON LICENSE OF [facility] Rx#:[id number] Oral 0 / 0 0 / 0 [...] disease) prior to surgery. -Will plan for [facility] tomorrow for further evaluation/risk stratification. NPO past midnight. Documented By: Anat Perez MD 04/29/231703 Signed By: <Electronically signed by Anat Perez MD> 04/29/23 173 [facility] Work Phone: 1([phone]) 151-178310-18-2023 Consult note Author Ashwini Conrad [facility] April 28, 2023 6:47pmNote Date/TimeOct2022 6:43pmCar[place] [id number] Orthopedic Consult Note Signed Patient: Manolo Roche MR#: [id number] : 1935 Acct:[id number] Age/Sex: 88 / M Adm Date: 3 Loc: 4N Room: 8K3475-6 Type: ADM IN Attending Dr: Sushant Cordon [...] negative unless noted below or in HPI [facility] Medical History (Updated 04/28/23 @ 17:35 by [...] 18 unit subcutHS 04/28/23 [History Confirmed 04/28/23] nlofhu-ipaglzcr-zuffsxz 24,000-76,000-120,000 unit capsule,delayed rel (Creon) 2cap PO [...] Appearance Clear, Urine pH 6.5, Ur Specific [place] 1.009, Urine Protein Negative, Urine Glucose (UA) Normal, UrineKetones Negative, Urine Occult Blood Negative, Urine Nitrite Negative, Urine Bilirubin Negative, Urine Urobilinogen Normal, Ur Leukocyte Esterase Negative 04/28/23 13:20: B-Natriuretic Peptide 665.0 H 04/28/23 13:20: Troponin I High Sens 35.5 H 04/28/23 13:20: PHA Creatinine Clear 60.38, Sodium 136, Potassium 4.9, Chloride 101, Carbon Bhzkuhv11.4, Anion Gap 9.5, BUN 15, Creatinine 0.71, [...] % (Auto) 75.0, Lymph % (Auto) 14.8, [place]upe % (Auto) 9.3, Eos % (Auto) 0.5, Baso % (Auto) 0.4, Nucleat RBC Rel Count 0.1, Neut # (Auto)7.3, Lymph # (Auto) 1.4, [place] # (Auto) 0.9 H, Eos # (Auto) 0.0, Baso # (Auto) 0.0, Monocyte Dist Width 18.61 H & H 04/28/23 Range/Units 13:20 Hgb 11.5 L (13.0-17.0) g/dL Hct 34.8 L (38.8-50.0) % Coagulation 04/28/23 Range/Units 13:20 INR 1.0 All other labs are normal. Imaging & Diagnostic Results Imaging/Diagnostics: XRAY ([facility] 04/28/2023) Right FEMUR/RIGHT HIP/PELVIS: AP of the [...] <Electronically signed by Ashwini Conrad MD> 04/28/231846 [facility] Work Phone: 1(412) 633-499510-18-2023 History and physical note Author Sushant Cordon [facility] April 28, 2023 5:40pmNote Date/TimeOct2022 5:40pm[place] [address] Hospitalist H&P Signed Patient: Manolo Roche MR#: [id number] : 1935 Acct:[id number] Age/Sex: 88 / M Adm Date: 3 Loc: Room: 4B8642-9 Type: ADM IN Attending Dr: Sushant Cordon [...] 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 This was [...] had what sounds like an EGD in [place] about 15 months ago with what sounds like some gastritis. Otherwise his past medical history seems to include prostate hypertrophy. Social history: He does smoke a cigar daily after dinner. In the past he smoked0.25 of a pack per day of cigarettes. He does drink wine daily with dinner. Heis mainly retired from [employer] here in [place]. He has continued to do other jobsever since his detention. Family history: A sister of an unspecified cancer. Another sibling ofwhat sounds like acute leukemia. Review of Systems Review of Systems Review of systems: 10 systems are reviewed and are negative except as mentioned elsewhere in the documentation. [facility] Medical History (Updated 04/28/23 @ 17:35 by [...] 18 unit subcutHS 04/28/23 [History Confirmed 04/28/23] avnbhr-hsjekgxk-zlqenty 24,000-76,000-120,000 unit capsule,delayed rel (Creon) 2cap PO [...] % (Auto) 14.8 % (.) 04/28/23 13:20 [place]upe % (Auto) 9.3 % (.) 04/28/23 13:20 Eos % (Auto) 0.5 % (.) 04/28/23 13:20 Baso % (Auto) 0.4 % (.) 04/28/23 13:20 Nucleat RBC Rel Count 0.1 /100 WBC (0-0.5) 04/28/23 13:20 Neut # (Auto) 7.3 x10E3/uL (1.8-7.7) 04/28/23 13:20 Lymph # (Auto) 1.4 x10E3/uL (1.00-4.8) 04/28/23 13:20 [place]upe # (Auto) 0.9 x10E3/uL (0.0-0.8) H 04/28/23 [...] pH 6.5 (5.0-9.0) 04/28/23 15:00 Ur Specific [place] 1.009 (1.001-1.030) 04/28/23 15:00 Urine Protein Negative [...] did order an echocardiogram but the echocardiogram health type technician has likely gone home for the [...] signed by Sushant Cordon DO> 04/28/23 1740 [facility] Work Phone: 1(805) 144-575410-01-2023 Chief complaint+Reason for visit Narrative * Chief Complaint GI Bleed Fall GI Bleed Fall GI Bleed Fall GI Bleed Fall c spine fx nick,gi ulcer referral cervical follow up seen in pt/egd.lewis's esophagus 04/2023 [facility] dc Cath/PCIReason for VisitCAD (coronary artery disease) Fracture of C5 vertebra, closed Vertebral fracture, closed Barretts esophagus H pylori ulcer Helicobacter pylori (H. pylori) Barretts esophagus CAD (coronary artery disease) H pylori ulcer Helicobacter pylori (H. pylori) Hypertension [id number] Stomach ulcer [facility] Work Phone: 1(837) 715-489906-29-2022 History of Present illness Narrative* Courtney Singh - 01/07/2022 12:25 PM EDT CLINICAL PHARMACY NOTE: MEDS TO BEDS Total # of Prescriptions Filled: 3 The following medications were delivered to the patient: Sucralfate susp Amlodipine Pantoprazole Additional Documentation: Pharmacy dispensed all we had of the Sucralfate susp- will transfer the rest to the [facility] in [place], [place] $8.61 collected via [facility] * Jose Roberto Peñaloza MD - 01/06/2022 [...] 01/03/2022 3:25 PM EDT Occupational Therapy Facility/Department: [address] Occupational Therapy Initial Assessment Name: Manolo Roche : 1935 Date of Service: 01/03/2022 Chief Complaint Patient presents with Abdominal Pain ulcer Discharge Recommendations: Patient would benefit from continued therapy after discharge OT Equipment Recommendations Equipment Needed: Yes Mobility Devices: ADL Assistive Devices ADL Assistive Devices: Gripper Attacher;Long-handled Sponge;Long-handled Shoe Horn;Sock- Aid Hard;Grab Bars -shower [...] General Comment Comments: KARIN ok'd for OT/PT lane this AM. Pt agreeable to session, pleasent/cooperative [...] Ambulation Assistance: Independent Transfer Assistance: Independent Active Stage Set Up Worker: Yes Mode of Transportation: [facility] Occupation: Retired Type of Occupation: Reports he has retired 4-5 times. Works on [employer] sometimes now debo wants. [employer]. Use to work for [employer]. Leisure & Hobbies: [employer] Additional Comments: 3-4 weeks post open heart [...] 12:40 PM EDT Physical Therapy Facility/Department: [address] [place] Physical Therapy Initial Assessment Name: [...] Ambulation Assistance: Independent Transfer Assistance: Independent Active Stage Set Up Worker: Yes Mode of Transportation: SUV Occupation: Retired Type of Occupation: Reports he has retired 4-5 times. 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 Jos eRoberto Peñaloza MD * Queta Geiger RN - 01/03/2022 12:19 AM EDT Assessment forms from [place] note that pt stated he has bed bugs at home and although they have treated the house, they have not been able to get rid of them. Pt did not have any belongings transferred with him from the OR. [facility] Work Phone: chief complaint+Reason for visit Narrative* Chief Complaint bp check I25.10 E61.1,K92.2 2 weeks bp 6 weeks evaluation for ICD evaluation for ICD HFC BP WITH ORTHO CardiomyopathyReason for VisitIron deficiency Ischemic cardiomyopathy Ischemic cardiomyopathy Ischemic cardiomyopathy Acute GI bleeding Ischemic cardiomyopathy [id number] Sinus bradycardia H pylori ulcer Iron deficiency Ischemic cardiomyopathy [id number] Ischemic cardiomyopathy [facility] Work Phone: Consult note Author Tru Yap [facility] May 03, 2023 3:17pmNote Date/TimeOct2022 2:59pm[place] [address] Physiatry (Rehab) Consult Note Signed Patient: Manolo Roche MR#: [id number] : 1935 Acct:[id number] Age/Sex: 88 / M Adm Date: 3 Loc: 4N Room: 4M1581-4 Type: ADM IN Attending Dr: Humberto Diaz [...] negative unless noted below or in HPI [facility] Medical History BPH (benign prostatic hyperplasia) Diabetes [...] 18 unit subcutHS 04/28/23 [History Confirmed 04/28/23] rkuvvu-trzxvmuf-nlmfyie 24,000-76,000-120,000 unit capsule,delayed rel (Creon) 2cap PO [...] bisacodyl 10 mg rectal suppository 10 mg IA DAILY PRN Constipation #0 ea 05/03/23 [Rx] [...] Code(s): I25.10 - Atherosclerotic heart disease of [place] coronary artery without angina pectoris Status: Acute [...] at least 3 times weekly encounters with twister tender paper for medical management and for plan of care review / changes. Plan: I completed a substantive portion of this encounter, the medical decision making portion of this note in its entirety, including Allied health note review, nursing note review, java consultant note review, discussion with nursing and case management, and more than 50% of my time was spent on counseling and coordination of care, time spent 65 minutes Patient was personally seen by me, Dr. Yap, on the day of encounter, reviewed the history and therelevant portions of the chart, including current orders, allied health and java consultant notes, labs/imaging and performed smyth elements of exam and I formulated the plan of care and facilitated the medical decision making. Documented By: Tru Yap MD 05/03/23 1454 Signed By: <Electronically signed by Tru Yap MD> 05/03/23 2958 [facility] Work Phone: Consult note Author Chuck Velasco [facility] HospitalNote Date/TimeJanuary 2024 4:52pm[place] [address] Cardiology Consult Note Signed Patient: Manolo Roche MR#: [id number] : 1935 Acct:[id number] Age/Sex: 89 / M Adm Date: 5 Loc: N Room: [address] [place], [place] [address] Type: ADM INOo Attending Dr: Lisa Hidalgo [...] negative unless noted below or in HPI [facility] Medical History Type 1 diabetes mellitus CAD (coronary artery disease) Former smoker BPH (benign prostatic hyperplasia) Urinary frequency Cardiomyopathy wearing external defib Coronary artery disease involving [place] coronary artery of [place] heart withoutangina pectoris GI bleeding Dupuytren's contracture [...] days #30 tabs 05/07/23 [Rx Confirmed 07/16/24] zuasrl-nobycubp-fzhglhk 24,000-76,000-120,000 unit capsule,delayed rel (Creon) 2cap PO [...] tab PO DAILY 10/26/23 [History Confirmed 07/16/24] yeauan-kpkyokgg-lprerih 24,000-76,000-120,000 unit capsule,delayed rel (Creon) 1cap PO [...] # (Auto) N/A Lymph # (Auto) N/A Guadalupe # (Auto) N/A Eos # (Auto) N/A [...] Code(s): I25.10 - Atherosclerotic heart disease of [place] coronary artery without angina pectoris (4) S/P [...] H/o PUD, BPH, Anxiety, depression. Current smoker. [facility] 04/30/23 - Two-vessel coronary artery disease- 100% prox LAD occlusion; 80% D1; LCx has 50% prox stenosis with 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 Echo 04/28/23 - EF 40-45%, mild LVH, trace MR and TR. 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 ECHO in January 2024 at [facility]: EF 30-35% ECHO 03/09/2024: ECHO which showed [...] call with any questions. Follow up with [facility] Cardiology as scheduled. Documented By: Chuck Velasco MD 01/03 1637 Signed By: <Electronically signed by Chuck Velasco MD> 07/17/24 1652 [facility] Work Phone: Discharge summary Author Humberto Diaz [facility] May 03, 2023 2:54pmNote Date/TimeOct2022 2:39pm[place] [address] Discharge Summary Signed Patient: Manolo Roche MR#: [id number] : 1935 Acct:[id number] Age/Sex: 88 / M Adm Date: 3 Loc: 4N Room: 0G9181-[address]: Humberto Diaz MD Copies to: [...] 08:45 Actual Procedures p [facility] Vicente Perez MD Operation Date: 04/30/23 15:30 [...] Discharge Plan Discharge Plan Patient Disposition: Rehab [facility] Diet: Diabetic Additional Instructions: Rehab to manage: [...] high armed straight-backed chair. 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 -Continue to use walker [...] OTHER -Any problems- Call the office at [phone] or return to Emergency Room. -If you are having excessive or persistent pain, swelling, fever (oral temp >101), yellow-green foul smelling drainage or bleeding from incision, excessive redness of incision, nausea, vomiting, or any other problems, you should first call your surgeon at [phone] for advice. If you are unable to [...] 0RF bisacodyl 10 mg Suppository 10 mg IA DAILY PRN (Reason: Constipation) Qty: 0 0RF [...] (call at discharge from Rehab to see Assistant Terminal Manager for future ANGIOPLASTY PROCEDURE) Marie Tejeda DO [...] <Electronically signed by Humberto Diaz MD> 05/03/23 1908 [facility] Work Phone: [place] [id number] Discharge Summary Signed Patient: Manolo Roche MR#: [id number] : 1935 Acct:[id number] Age/Sex: 89 / M Adm Date: 5 Loc: 4N Room: 9F5560-[address]: Lisa Hidalgo MD Copies to: [...] 40-45%, mild LVH, trace MR and TR. 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 ECHO in January 2024 at [facility]: EF 30-35% ECHO 03/09/2024: ECHO which showed [...] call with any questions. Follow up with [facility] Cardiology as scheduled. Patient was cleared by [...] Lisa Hidalgo MD 07/18/241899 Signed By: 07/18/241901 [facility] HospitalDis[facility] summary Author Lisa Hidalgo [facility] HospitalNote Date/TimeJanuary 2024 7:02pm[place] [address] Discharge Summary Signed Patient: Manolo Roche MR#: [id number] : 1935 Acct:[id number] Age/Sex: 89 / M Adm Date: 5 Loc: 4N Room: [id number]: Lisa Hidalgo MD Copies to: [...] homeas disposition. Cardiology consulted, recommended to follow: [facility] 04/30/23 - Two-vessel coronary artery disease- 100% prox LAD occlusion; 80% D1; LCx has 50% prox stenosis with 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 Echo 04/28/23 - EF 40-45%, mild LVH, trace MR and TR. 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 ECHO in January 2024 at [facility]: EF 30-35% ECHO 03/09/2024: ECHO which showed [...] call with any questions. Follow up with [facility] Cardiology as scheduled. Patient was cleared by [...] <Electronically signed by Lisa Hidalgo MD> 07/18/241901 [facility] Work Phone: Evaluation + Plan note No data available for this section [facility] Evaluation + Plan note Future Appointments Appointment Date:05/22/2025 01:00:00 PM Scheduled Provider: Location:[facility] Appointment Type:Urology CALL PAT FT Appointment Date:05/24/2025 10:00:00 AM Scheduled Provider: Location:[facility] Appointment Type:Urology FT Appointment Date:05/24/2025 11:00:00 AM Scheduled Provider: Location:[facility] Appointment Type:Urology FT [facility] Evaluation note* Diagnosis Perforated viscus- Primary [...] uncontrolled, or unspecified documented in this encounter [facility] Work Phone: evaluation note* Diagnosis Onset Date Resolution Status Abnormal EKG acuteClosed intertrochanteric fracture of right hipacuteElevated troponinacute [facility] Work Phone: Evaluation note* Diagnosis Onset Date Resolution Status Abnormal EKG acuteClosed intertrochanteric fracture of right hipacuteDiabetesacuteElevated troponinacuteImpaired mobility and activities of daily livingacuteMild left ventricular systolic dysfunction (LVSD)acuteNonsustained monomorphic ventricular tachycardiaacutePostoperative pain, acute, hipacuteTwo-vessel coronary artery diseaseacute [facility] Work Phone: Evaluation note* Diagnosis Onset [...] malnutrition, mildacuteTwo-vessel coronary artery diseaseacuteUncontrolled diabetes mellitusacute [facility] Work Phone: Evaluation note* Diagnosis NSTEMI (non-ST elevated myocardial infarction) ([facility])- Primary Acute myocardial infarction, subendocardial infarction, episode of care unspecified Abnormal stress test Other nonspecific abnormal cardiovascular system function study ASHD (arteriosclerotic heart disease) Coronary atherosclerosis of unspecified type of vessel, [place]ak or graft Essential hypertension Unspecified essential hypertension Diabetes mellitus type II, non insulin dependent ([facility]) Type II or unspecified type diabetes mellitus without mention of complication, not stated as uncontrolled Closed fracture of right hip, initial encounter ([facility]) documented in this encounter [facility] Work Phone: Evaluation noteNo InformationNort [employer] Other Evaluation note* Diagnosis Onset Date Resolution Status Diabetes acuteCAD (coronary artery disease)acuteDiabetesacute [facility] Work Phone: Evaluation note* Diagnosis Cardiomyopathy, ischemic- Primary Other specified forms of chronic ischemic heart disease ASHD (arteriosclerotic heart disease) Coronary atherosclerosis of unspecified type of vessel, [place] or graft BMI 20.0-20.9, adult Orthopnea documented in this encounter [facility] Work Phone: Evaluation noteNo assessment information available [facility] Work Phone: Evaluation note* Diagnosis Onset Date Resolution Status Fracture of C5 vertebra, closed acuteVertebral fracture, closedacuteBarretts esophagusacuteH pylori ulceracute [facility] Work Phone: Evaluation note* Diagnosis Onset Date Resolution Status Acute electrocardiogram changes acuteAcute GI bleedingacuteElevated troponinacuteGI bleedingacute [facility] Work Phone: Evaluation note* Diagnosis Onset Date Resolution Status Acute electrocardiogram changes acuteAcute GI bleedingacuteCAD (coronary artery disease)[id number] acuteElevated troponinacuteGI bleedingacuteHistory of pancreatectomyacute HypertensionacuteS/P PTCA (percutaneous transluminal coronary angioplasty)acute Type 1 diabetes mellitusacute [facility] Work Phone: Evaluation note* Diagnosis Onset Date Resolution Status Acute electrocardiogram changes resolvedAcute GI bleedingresolvedElevated troponinresolvedIschemic cardiomyopathyacuteAcute GI bleedingresolved [facility] Work Phone: Evaluation note* Diagnosis Onset Date Resolution Status Acute electrocardiogram changes resolvedAcute GI bleedingresolvedElevated troponinresolvedIschemic cardiomyopathyacuteAcute GI bleedingresolvedIron deficiencyacuteIschemic cardiomyopathyacute [facility] Work Phone: Evaluation note* Diagnosis Onset Date Resolution Status Acute electrocardiogram changes resolvedAcute GI bleedingresolvedElevated troponinresolvedIschemic cardiomyopathyacuteAcute GI bleedingresolvedIron deficiencyacuteIschemic cardiomyopathyacuteIschemic cardiomyopathyacuteIschemic cardiomyopathyacuteAcute GI bleedingresolved [facility] Work Phone: Evaluation note* Diagnosis 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 ([facility]/HCC) Pancreatic insufficiency ([facility]/HCC)- Primary Other specified disease of pancreas Coronary arteriosclerosis ([facility]/HCC) Coronary atherosclerosis of unspecified type of vessel, [place] or graft 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 ([facility]/HCC) 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 ([facility]/HCC) H pylori ulcer Chronic ulcer of unspecified site documented in this encounter [facility] HealthcareEvaluation note* Diagnosis 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 ([facility]/HCC) Bronchitis- Primary Bronchitis, not specified as acute or chronic 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 (CMS/HCC) Generalized anxiety disorder ([facility]) Generalized anxiety disorder Need for immunization against influenza Need for prophylactic vaccination and inoculation against influenza 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 H pylori ulcer Chronic ulcer of unspecified site 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 ([facility]/HCC) Insulin pump in place Insulin pump status Pancreatic insufficiency ([facility]/HCC) Other specified disease of pancreas Duodenal ulcer Medicare annual wellness visit, subsequent ACP (advance care planning) Other specified counseling Bradycardia Other specified cardiac dysrhythmias Orthostatic hypotension Acute on chronic systolic congestive heart failure ([facility]/HCC) documented in this encounter [facility] HealthcareEvaluation note* Diagnosis 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 ([facility]) ICD (implantable cardioverter-defibrillator) in place- Primary Hospital discharge follow-up Other follow-up examination 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 (CMS/HCC) Coronary atherosclerosis of unspecified type of vessel, [place] or graft Insulin pump in place Insulin pump status 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) Moderate pulmonary arterial systolic hypertension (CMS/HCC) Nonrheumatic mitral valve regurgitation Chronic systolic CHF (congestive heart failure), NYHA class 2 (CMS/HCC) documented in this encounter [facility] HealthcareEvaluation note* Diagnosis 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 (CMS/HCC) Abdominal wall abscess- Primary Cellulitis and abscess of trunk documented in this encounter [facility] HealthcareEvaluation note* Diagnosis 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, with long-term current use of insulin(HCC)- Primary 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) Insulin pump status [facility] Diabetes mellitus secondary [...] absence of pancreas documented in this encounter [facility] HealthcareEvaluation note* Diagnosis 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 (CMS/HCC) Abdominal wall abscess- Primary Cellulitis and abscess of trunk documented in this encounter [facility] HealthcareEvaluation note* Diagnosis 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 (CMS/HCC) Chronic systolic CHF (congestive heart failure), NYHA class 2 (CMS/HCC)- Primary Pancreatic insufficiency (CMS/HCC) Other specified disease of pancreas History of bleeding peptic ulcer Coronary arteriosclerosis (CMS/HCC) Coronary atherosclerosis of unspecified type of vessel, [place] or graft 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) Orthostatic hypotension Bronchitis Bronchitis, not specified as acute or chronic documented in this encounter [facility] HealthcareEvaluation note* Diagnosis 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, with long-term current use of insulin(HCC)- Primary [facility] Diabetes mellitus secondary to [...] disease of pancreas documented in this encounter [facility] note* Diagnosis 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, with long-term current use of insulin(HCC)- Primary [facility] Diagnosis 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, with long-term current use of insulin(HCC)- Primary 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) Insulin pump status Insulin pump titration Fitting and adjustment of insulin pump [facility] Diagnosis 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, with long-term current use of insulin(HCC) [facility] Diagnosis 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, with long-term current use of insulin(HCC)- Primary 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) Insulin pump status Insulin pump titration Fitting and adjustment of insulin pump [facility] Diagnosis 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, with long-term current use of insulin(HCC)- Primary [facility] Diagnosis 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, with long-term current use of insulin(HCC) [facility] Diagnosis 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, with long-term current use of insulin(HCC) [facility] Diagnosis 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 Type 1 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 (HCC) Pancreatic insufficiency (HCC)- Primary Other specified disease of pancreas Pleurisy Pleurisy without mention of effusion or current tuberculosis Pleurisy Pleurisy without mention of effusion or current tuberculosis documented in this encounter [facility] Healthcare[facility] note* Diagnosis 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, with long-term current use of insulin(HCC)- Primary [facility] [place] [facility] Diagnosis 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, with long-term current use of insulin(HCC)- Primary [facility] [place] [facility]* Diagnosis Onset Date Resolution Status Admit Date Ischemic cardiomyopathy acuteSept2024 9:54amType 1 diabetes mellitusacuteSept2024 9:54amAcute GI bleedingresolvedSept2024 9:54amCoronary artery disease involving [place]at[place] coronary artery of [place] heart wiinactiveSept2024 9:54amHypertensioninactiveSept2024 9:54amS/P PTCA (percutaneous transluminal coronary angioplasty)inactiveSept2024 9:54am [facility] Work Phone: Evaluation note* Diagnosis 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 Type 1 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 (HCC) Need for follow-up care after discharge- Primary Generalized anxiety disorder Pancreatic insufficiency (HCC) Other specified disease of pancreas Mixed hyperlipidemia 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) Coronary arteriosclerosis Coronary atherosclerosis of unspecified type of vessel, [place] or graft Current moderate episode of major 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 (HCC) Insulin pump in place Insulin pump status History of bleeding peptic ulcer 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) Benign prostatic hyperplasia with urinary frequency 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 Cardiac pacemaker in situ documented in this encounter [facility] HealthcareHistory and physical note Author Indra Guillory [facility] HospitalNote Date/TimeJanuary 2024 1:48am[place] [address] Hospitalist H&P Signed Patient: Manolo Roche MR#: [id number] : 1935 Acct:[id number] Age/Sex: 89 / M Adm Date: 5 Loc: Room: [address] [place] [address] Type: ADM INOo Attending Dr: Indra Guillory MD Copies to: MD Marie Keller DO~ [facility] DATE OF EXAMINATION: 07/17/24 CHIEF COMPLAINT: [...] that which is noted above in HPI [facility] Medical History Type 1 diabetes mellitus CAD (coronary artery disease) Former smoker BPH (benign prostatic hyperplasia) Urinary frequency Cardiomyopathy wearing external defib Coronary artery disease involving [place] coronary artery of [place] heart withoutangina pectoris GI bleeding Dupuytren's contracture [...] days #30 tabs 05/07/23 [Rx Confirmed 07/16/24] uljbwx-flohhylk-sdjaymc 24,000-76,000-120,000 unit capsule,delayed rel (Creon) 2cap PO [...] tab PO DAILY 10/26/23 [History Confirmed 07/16/24] rnrdiq-hqqvcctn-xgjywoj 24,000-76,000-120,000 unit capsule,delayed rel (Creon) 1cap PO [...] % (Auto) 18.9 % (.) 07/16/24 12:30 Guadalupe % (Auto) 12.8 % (.) 07/16/24 12:30 Eos % (Auto) 2.7 % (.) 07/16/24 12:30 Baso % (Auto) 0.8 % (.) 07/16/24 12:30 Nucleat RBC Rel Count 0.2 /100 WBC (0-0.5) 07/16/24 12:30 Neut # (Auto) 4.7 x10E3/uL (1.8-7.7) 07/16/24 12:30 Lymph # (Auto) 1.4 x10E3/uL (1.00-4.8) 07/16/24 12:30 Guadalupe # (Auto) 0.9 x10E3/uL (0.0-0.8) H 07/16/24 [...] 2 Documented By: Indra Guillory MD [id number] Signed By: <Electronically signed by Indra Guillory MD> 07/17/24 0148 [facility] Work Phone: History general Narrative - Reported* Type Description Date Medical History stage 1 diabetes Surgical Historypancreas and spleen removalSurgical Historyback surgerySurgical HistorytonsilectomySurgical HistoryHIP TFN [id number] [facility] Other Hospital Discharge instructions* Instructions* Viki Donovan, [...] scheduled appointment, please call the office at [phone]. Call Your Doctor If Any of the [...] through Care Everywhere. * Surgical Drain Care (Palestinian) [facility] [employer] Work Phone: Hospital Discharge instructions Additional Instructions [...] -Dietary supplement: Glucerna 1 container twice a day.[facility] Work Phone: Hospital Discharge instructions Additional [...] doctor or pharmacist, without first calling the research kennel supervisor who implanted the stent. If you require [...] weight lifting, stair steppers, etc. until the research kennel supervisor approves these activities. Check with the research kennel supervisor on your first follow-up visit. CALL YOUR PHYSICIAN at [phone]: -If bleeding should occur from the catheter insertion site- apply pressure to the site then immediately call us. -Report any fever, redness, drainage, increased swelling, or firmness at the catheter insertion site. Some bruising or slight swelling may be present at the time of discharge. -Should arm or leg become cold, numb, white, or blue, contact the research kennel supervisor immediately. -IF you should experience episodes of [...] is recommended. Please call Central Scheduling at [phone] to schedule your appointment.] The attending research kennel supervisor or [facility] nurse clinician should provide you with specific instructions regarding activity, diet, medications, and further follow up for you. Follow the medication instructions provided on your discharge. If the dosages and instructions on this sheet differ from the dosage and instructions on the bottle, follow the instructions on the bottle. [facility] is not responsible for incorrect prescription information provided by the patient during their visit. Do not stop your medications without consulting your health care provider. Please take the list with you to your next doctor's appointment.[facility] Work Phone: Hospital Discharge instructionsAmbulatory Orders* Referral to Cardiac Rehab Location: None Selected [facility] Work Phone: Hospital Discharge instructions No data available for this section [facility] Progress note Author Anat Perez [facility] February 08, 2024 2:07pmNote Date/TimeJuly 2023 2:[address] [address] Cardiology Progress Note Signed Patient: Manolo Roche MR#: [id number] : 1935 Acct:[id number] Age/Sex: 88 / M Adm Date: 4 Loc: Room: [address] [place] [address] Type: ADM IN Attending Dr: Warren Gross [...] MPV Neut % (Auto) Lymph % (Auto) Guadalupe % (Auto) Eos % (Auto) Baso % (Auto) Nucleat RBC Rel Count Neut # (Auto) Lymph # (Auto) Guadalupe # (Auto) Eos # (Auto) Baso # [...] % (Auto) 51.7 Lymph % (Auto) 22.3 Guadalupe % (Auto) 17.6 Eos % (Auto) 7.1 Baso % (Auto) 1.3 Nucleat RBC Rel Count 0.2 Neut # (Auto) 3.0 Lymph # (Auto) 1.3 Guadalupe # (Auto) 1.0 H Eos # (Auto) [...] MPV Neut % (Auto) Lymph % (Auto) Guadalupe % (Auto) Eos % (Auto) Baso % (Auto) Nucleat RBC Rel Count Neut # (Auto) Lymph # (Auto) Guadalupe # (Auto) Eos # (Auto) Baso # (Auto) PHA Creatinine Clear Sodium Potassium Chloride Carbon Dioxide Anion Gap BUN Creatinine Est GFR (CKD-EPI) Glucose POC Glucose 382 POC Glucose Comment Calcium Magnesium A&P - Cardiology (1) Acute GI bleeding: Code(s): K92.2 - Gastrointestinal hemorrhage, unspecified (2) Elevated troponin: Code(s): R79.89 - Other specified abnormal findings of blood chemistry (3) Coronary artery disease involving [place] coronary artery of [place] heart without angina pectoris: Code(s): I25.10 - Atherosclerotic heart disease of [place] coronary artery without angina pectoris (4) S/P PTCA (percutaneous transluminal coronary angioplasty): Code(s): Z98.61 - Coronary angioplasty status Plan # Acute recurrent GI Bleed in setting of known PUD (recent EGD on 09/01/23 found a 2 cm ulcer with anonbleeding visible vessel at the bulb of the duodenum). # CAD s/p PCI in Jul 2023. # Ischemic Cardiomyopathy s/p LifeVest ordered in [place] - Well compensated. # Non-ACS myocardial injury - Is due to demand-supply mismatch 2/2 acute anemia. 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 Current smoker. [facility] 04/30/23 - Two-vessel coronary artery disease- 100% prox LAD occlusion; 80% D1; LCx has 50% prox stenosis with 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 Echo 04/28/24 - EF 40-45%, mild LVH, trace MR and TR. 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 EKG 09/07/23 - sinus peace 56 bpm, anterolateral TWI. EKG 09/08/23 - sinus peace 58 bpm, anterolateral and inferior TWI. - Pt is currently 6 months out from PCI. Plavix stopped. Continue ASA 81mg dailyand monitor Hb - Reviewed records from recent hospitalization at [facility] [place] in [place]. He was hospitalized for NSTEMI and PNA. [...] PO 20mg daily. - Follow up with [facility] cardiology as scheduled on 03/02/24. Will plan on repeat ECHO 3 months after being on maximally tolerated GDMT to determine need for ICD. - Cardiology will sign off. Please call with questions. Documented By: Anat Perez MD 02/08/24 4858 Signed By: <Electronically signed by Anat Perez MD> 02/08/24 2849 [facility] Work Phone: Progress note Author Chuck Velasco [facility] HospitalNote Date/TimeNovember 2023 10:41am [place] [address] Cardiology Progress Note Signed Patient: Manolo Roche MR#: [id number] : 1935 Acct:[id number] Age/Sex: 89 / M Adm Date: 4 Loc: Room: [address] [place] [address] Type: ADM IN Attending Dr: Abdulaziz Root [...] signed by Chuck Velasco MD> 05/25/24 1041 [facility] Work Phone: Progress note No data available for this section [facility] Reason for referral (narrative)* Consultation (Routine) - AuthorizedSpecialtyDiagnoses / ProceduresReferred By ContactReferred To ContactCardiology Diagnoses Abnormal stress test ASHD (arteriosclerotic heart disease) NSTEMI (non-ST elevated myocardial infarction) ([facility]) Procedures Follow Up In Cardiology Govind Davis, [address] [facility] [address] [place] [phone] Govind Davis, DO [address] [facility] [address] [place] [phone] Referral IDStatusReasonStart DateExpiration DateVisits RequestedVisits [id number]/14/202311/ * Cardiovascular (Routine) - Pending ReviewSpecialtyDiagnoses / Procedures Referred By ContactReferred To Contact Diagnoses Abnormal stress test ASHD (arteriosclerotic heart disease) Procedures ECG 12 Lead Govind Davis, [address] [facility] [address] [place] [phone] Referral IDStatusReasonStarmstrong DateExpiration DateVisits RequestedVisits [id number] Llalig32 [facility] Work Phone: Repiut for referral (narrative)No reason for referral information availablePromedica Defiance Regional Hospital Work Phone: Advance Directives Code StatusDate ActivatedDate InactivatedCommentsFull Code01/02/2022 10:32 PMFull Code01/02/2022 8:11 PM01/02/2022 10:32 PMNameRelationshipHealthcare Agent RelationshipCommunicationRose Yodit SbernaSpousePrimary Decision Maker* Saúl SbernaChildSecondary Decision Maker* Advance Directive Response Recorded Date/ Time Advance Directives No March 5:30pm Advance Directive Response Recorded Date/ Time Advance Directives No March 4:30pm Date ActivatedDate GusvkurmaaeJgoosobb54/16/2024 7:43 AMDate ActivatedDate VzkupnmixczKgtqqdjb89/16/2024 7:43 AM Summary Purpose Family History Relationship [...] Acute GI bleeding CAD (coronary artery disease) [id number] Elevated troponin GI bleeding History of pancreatectomy Hypertension S/P PTCA (percutaneous transluminal coronary angioplasty) Type 1 diabetes mellitus Chief Complaint Dizziness Dizziness Dizziness K92.2Reason for VisitAcute electrocardiogram changes Acute GI bleeding CAD (coronary artery disease) [id number] Elevated troponin GI bleeding History of pancreatectomy Hypertension S/P PTCA (percutaneous transluminal coronary angioplasty) Type 1 diabetes mellitus Chief Complaint Dizziness Dizziness Dizziness K92.2 K92.2Reason for VisitAcute electrocardiogram changes Acute GI bleeding CAD (coronary artery disease) [id number] Elevated troponin GI bleeding History of pancreatectomy Hypertension S/P PTCA (percutaneous transluminal coronary angioplasty) Type 1 diabetes mellitus Chief Complaint Dizziness Dizziness Dizziness K92.2 K92.2 [facility] 02/06Reason for VisitAcute electrocardiogram changes Acute GI bleeding CAD (coronary artery disease) [id number] Elevated troponin GI bleeding History of pancreatectomy Hypertension S/P PTCA (percutaneous transluminal coronary angioplasty) Type 1 diabetes mellitus Chief Complaint Dizziness Dizziness Dizziness K92.2 K92.2 [facility] 02/06 k92.2 d50.9 r00.1Reason for VisitAcute electrocardiogram changes Acute GI bleeding Elevated troponin Ischemic cardiomyopathy Acute GI bleeding Chief Complaint Dizziness Dizziness Dizziness K92.2 K92.2 [facility] 02/06 r00.1 k92.2 d50.9 r00.1 bp checkReason for VisitAcute electrocardiogram changes Acute GI bleeding Elevated troponin Ischemic cardiomyopathy Acute GI bleeding Chief Complaint Dizziness Dizziness Dizziness K92.2 K92.2 [facility] 02/06 r00.1 k92.2 d50.9 r00.1 bp check E61.1,K92.2 I25.10Reason for VisitAcute electrocardiogram changes Acute GI bleeding Elevated troponin Ischemic cardiomyopathy Acute GI bleeding Iron deficiency Ischemic cardiomyopathy Chief Complaint Dizziness Dizziness Dizziness K92.2 K92.2 [facility] 02/06 r00.1 k92.2 d50.9 r00.1 bp check I25.10 E61.1,K92.2Reason for VisitAcute electrocardiogram changes Acute GI bleeding Elevated troponin Ischemic cardiomyopathy Acute GI bleeding Iron deficiency Ischemic cardiomyopathy Chief Complaint Dizziness Dizziness Dizziness K92.2 K92.2 [facility] 02/06 r00.1 k92.2 d50.9 r00.1 bp check I25.10 E61.1,K92.2 2 weeks bpReason for VisitAcute electrocardiogram changes Acute GI bleeding Elevated troponin Ischemic cardiomyopathy Acute GI bleeding Iron deficiency Ischemic cardiomyopathy Chief Complaint Dizziness Dizziness Dizziness K92.2 K92.2 [facility] 02/06 r00.1 k92.2 d50.9 r00.1 bp check I25.10 E61.1,K92.2 2 weeks bp 6 weeksReason for VisitAcute electrocardiogram changes Acute GI bleeding Elevated troponin Ischemic cardiomyopathy Acute GI bleeding Iron deficiency Ischemic cardiomyopathy Ischemic cardiomyopathy Ischemic cardiomyopathy Acute GI bleeding Chief Complaint Dizziness Dizziness Dizziness K92.2 K92.2 [facility] 02/06 r00.1 k92.2 d50.9 r00.1 bp check I25.10 E61.1,K92.2 2 weeks bp 6 weeks evaluation for ICD evaluation for ICDReason for VisitAcute electrocardiogram changes Acute GI bleeding Elevated troponin Ischemic cardiomyopathy Acute GI bleeding Iron deficiency Ischemic cardiomyopathy Ischemic cardiomyopathy Ischemic cardiomyopathy Acute GI bleeding Chief Complaint Dizziness Dizziness Dizziness K92.2 K92.2 [facility] 02/06 r00.1 k92.2 d50.9 r00.1 bp check I25.10 E61.1,K92.2 2 weeks bp 6 weeks evaluation for ICD evaluation for ICD HFCReason for VisitAcute electrocardiogram changes Acute GI bleeding Elevated troponin Ischemic cardiomyopathy Acute GI bleeding Iron deficiency Ischemic cardiomyopathy Ischemic cardiomyopathy Ischemic cardiomyopathy Acute GI bleeding Chief Complaint Dizziness Dizziness Dizziness K92.2 K92.2 [facility] 02/06 r00.1 k92.2 d50.9 r00.1 bp check I25.10 E61.1,K92.2 2 weeks bp 6 weeks evaluation for ICD evaluation for ICD HFCReason for VisitAcute electrocardiogram changes Acute GI bleeding Elevated troponin Ischemic cardiomyopathy Acute GI bleeding Iron deficiency Ischemic cardiomyopathy Ischemic cardiomyopathy Ischemic cardiomyopathy Acute GI bleeding Ischemic cardiomyopathy [id number] Sinus bradycardia H pylori ulcer Iron deficiency Ischemic cardiomyopathy [id number] Chief Complaint K92.2 K92.2 [facility] 02/06 r00.1 k92.2 d50.9 r00.1 bp check I25.10 E61.1,K92.2 2 weeks bp 6 weeks evaluation for ICD evaluation for ICD HFC BP WITH ORTHOReason for VisitIschemic cardiomyopathy Acute GI bleeding Iron deficiency Ischemic cardiomyopathy Ischemic cardiomyopathy Ischemic cardiomyopathy Acute GI bleeding Ischemic cardiomyopathy [id number] Sinus bradycardia H pylori ulcer Iron deficiency Ischemic cardiomyopathy [id number] Chief Complaint Admit Date bp check February [...] 2024 10:57am Coronary artery disease invo lving [place] coronary artery of [place] heart wi March 27, 2024 10:57am Hypertension [...] 37pm I47.2 Z95.810 August 29, 2024 1:28pm [facility] 07/17August 31, 2024 9:56am Reason for Visit [...] 2024 9:56am Coronary artery disease invo lving [place] coronary artery of [place] heart wi August 31, 2024 9:56am Hypertension August 31, 2024 9:56am S/P PTCA (percutaneous transluminal mounika nary angioplasty) August 31, 2024 9:56am Chief Complaint Admit Date chest pain July 16, 2024 6: 08pm chest pain July 17, 2024 4: 37pm I47.2 Z95.810 August 29, 2024 1:28pm [facility] 07/17August 31, 2024 9:56am 6 weeks October [...] 2024 9:56am Coronary artery disease invo lving [place] coronary artery of [place] heart wi August 31, 2024 9:56am Hypertension August 31, 2024 9:56am S/P PTCA (percutaneous transluminal mounika nary angioplasty) August 31, 2024 9:56am Ischemic cardiomyopathy October 13, 2024 9:10am Type 1 diabetes mellitus October 13, 2024 9:10am Acute GI bleeding October 13, 2024 9:10 am Coronary artery disease invo lving [place] coronary artery of [place] heart wi October 13, 2024 9:10am Hypertension [...] 9:10 am Coronary artery disease invo lving [place] coronary artery of [place] heart wi October 13, 2024 9:10am Hypertension [...] 2025 9:54am Coronary artery disease invo lving [place] coronary artery of [place] heart wi March 27, 2025 9:54am Hypertension [...] 2025 9:54am Coronary artery disease invo lving [place] coronary artery of [place] heart wi March 27, 2025 9:54am Hypertension [...] 2025 10:11am Coronary artery disease invo lving [place] coronary artery of [place] heart wi May 09, 2025 10:11am Hypertension May 09, 2025 1 0:11am S/P PTCA (percutaneous transluminal mounika nary angioplasty) May 09, 2025 10:11am Additional Source Comments Reason for Visit (unrecogniz ed section and content) ReasonCommentsAbdominal PainulcerSpecialtyDiagnoses / ProceduresReferred By ContactReferred To Contact Diagnoses Acute gastric ulcer with perforation (HCC) Perforated viscus Delon Carrion, DO [address] [facility] [address] [place] [address] [facility] [address] [place] [address] Referral IDStatusReasonStart DateExpiration DateVisits RequestedVisits [id number] [facility]/2023Specialty Diagnoses / ProceduresReferred By ContactReferred To Contact Diagnoses Abnormal stress test ASHD (arteriosclerotic heart disease) Procedures ECG 12 Lead Govind Davis, DO [address] [facility] [address], [address] [place] [address] Referral IDStatusReasonStart DateExpiration DateVisits RequestedVisits [id number] [id number]-lxQPH SpecialtyDiagnoses / ProceduresReferred By ContactReferred To ContactCardiology Diagnoses ASHD (arteriosclerotic heart disease) Procedures Follow Up In Cardiology Sammy Berman, MED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-MOTOR ROOM CONTROLLER [address] [facility] [address] [place] [address] Referral IDStatusReasonStart DateExpiration DateVisits RequestedVisits [id number]/13/202312/059317UstquoHgyelwuxYaa-gdnu office visitToday patient reports he is feeling [...] Procedures OFFICE/OUTPATIENT NEW HIGH MDM 60 MINUTES [id number] (SNOMED CT) - AMB REFERRAL TO ENDOCRINOLOGY Anatoly Anne, KALANI [address] [place] [address] Madelyn Reese MD, PhD [address] [place] [address] Referral IDStatusReasonStart DateExpiration DateVisits RequestedVisits [id number] [id number]-szggx office visitHospital Follow-kkOcjvtmAwsyfxfu9bk pow I&D Lt. abd. wall abscess ReasonCommentsOmnipod [...] G7 issuesReasonCommentsOmnipod/Dexcom issues ReasonCommentsHigh Blood SugarReasonOnset DateCommentsRefill Wfnyduj3312/19/2024 ReasonOnset DateCommentsRefill Bcuzylt6312/12/2024ReasonCommentsFlank PainLeft- side for 10 days, denies change [...] * 0939 (Not Given - Provider: Baljit Sage RN - Reason: Patient/family refused) * 0939 [...] Infection * 0401 (Stopped - Provider: Aliyah Halney RN) * 0454 (New Bag - Provider: [...] Geiger, RN) * 0335 (Stopped - Provider: Qeuta Geiger, KARIN) * 0507 (New Bag - Provider: Queta Geiger RN) * 0907 (Stopped - Provider: Baljit Sage RN) * 1104 (New Bag - Provider: Baljit Sage, KARIN) * 1504 (Stopped - Provider: Aurelia Castillo [...] Name: SALVADOR NARANJO DO Address: [address] [facility] [address] [place], [place] [address] Telecom: Team Status: Active Member Role Status Dates Marie Tejeda DO Primary Care Provider Active Team Status: Inactive Member Role Status Dates Marie Tejeda DO Primary Care Provider Active Dimitri Miranda ProviderActiveKristophmichelle Robertom , DOAdmit ProviderActiveAshwini Conrad MDOther ProviderActiveChuck Velasco MD Other ProviderActiveAnat Perez MDOther ProviderActiveHumberto Diaz MD Attending ProviderActiveTru Yap MDOther ProviderActiveTeam Member RelationshipSpecialtyStart DateEnd Date Marie Tejeda [facility] [address] [place] [address] PCP - GeneralInternal Medicine01/07/22 Team Status: Active Member Role Status Dates Marie Tejeda DO Primary Care Provider Active Dimitri Miranda ProviderActiveRamonophmichelle Cordon , DOAdmit Provider, Attending ProviderActive Team Status: Inactive Member Role Status Dates Marie Tejeda DO Primary Care Provider Active Fredi Medrano MDAdmesdras Provider, Attending ProviderActiveLois Rios RNOther ProviderActiveKavya Velazquez RNOther ProviderActiveGay Angulo RNOther ProviderActiveBuffy Hernandez RNOther ProviderActiveFransisca Bentely RNOther ProviderActiveMozeus Henry RNOther ProviderActiveChris Holm MDOther ProviderActiveLisa Guille Clarkes , APRNOther ProviderActiveRonwaylon Wilson DOOther ProviderActiveMusmichael Major MDOther ProviderActive Sushant Cordon DOOther ProviderActiveAudi Gaming MDOther Provider ActiveCecily Keen MDOther ProviderActiveLykika Wright , APRNOther ProviderActiveDaniel Reeys MDOther ProviderActiveRoberto Sevilla MDOther ProviderActiveHumberto Diaz MDOther ProviderActiveMarzena Otto MDOther ProviderActiveMichael Frings , DOOther ProviderActiveMc Cornejo MDOther ProviderActiveEarelham Angeles MDOther ProviderActiveMarga Mccauley , PASSENGER BRAKEMAN-COther ProviderActiveIndra Guillory MDOther ProviderActiveDavid Fonseca MD Other ProviderActiveHai Aguilera MDOther ProviderActiveAnoPino MDOther ProviderActiveMargerald Urena , DOOther ProviderActiveNeal R Lina , DOOther ProviderActiveAnthony M Miniaci , DOOther ProviderActiveLinda Obika , APRNOther ProviderActiveShradhan Khoi Gross , DOOther ProviderActiveObaydah [place]ille Jimenez MDOther ProviderActivePaula Aileen Berman , APRNOther ProviderActiveAlicia Arnaldo Pimentel , MED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 Other ProviderActiveVidya Robert MDOther ProviderActiveDagerson Burrell MDOther ProviderActiveKyle Leeann John , DOOther ProviderActivePatricia Brody Murdock , APRNOther ProviderActiveYadontae Drake , DOOther ProviderActiveErma Morillo RNOther ProviderActiveTeam MemberRelationshipSpecialtyStart DateEnd Date Marie Tejeda DO [address] [place] [address] PCP - GeneralInternal Fnybcgyc05/7/23 Team Status: Inactive Member Role Status Dates [...] DO Primary Care Provider Active Federico Davis DOAttmyrna ProviderActive Team Status: Inactive Member Role Status Dates Marie Tejeda DO Primary Care Provider Active Herminio Lakhani MDAttmyrna ProviderActiveTeam MemberRelationshipSpecialtyStart DateEnd Date Marie Tejeda, [address] [place] [address] PCP - GeneralSan [facility] Apache [facility] Healthcare Corporationnal Ipeuhccm25/7/23 Team Status: Inactive Member Role Status Dates [...] September 27, 2023 End: September 26lewis Flores PASSENGER BRAKEMAN-CAttending ProviderActive Start: September 27, 2023 End: September 27, 2023 Team Status: Inactive Member Role Status Dates Marie Tejeda DO Primary Care Provider Active Start: September 28, 2023 End: September 28, 2023Rachelle Luciano PASSENGER BRAKEMAN-CAttending ProviderActiveStart: September 28, 2023 End: September 28, [...] Member Role Status Dates Anat Perez MD Assistant Terminal Manager Active [facility] ProviderActive Team Status: Inactive Member Role Status [...] March 27, 2024Team MemberRelationshipSpecialtyStart DateEnd Date Marie Tjeeda DO [address] [place] [address] PCP - GeneralInternal Medicine01/08/23 Marie Tejeda DO [address] [place] [address] PCP - ACO Reach09/10/23 Patrick Beard MD [address] [facility] [address] [place] [address] Referring DhjwmsrbvXpafbovolijmorpk41/7/24 Andrey Grullon MD [address] [place] [address] Referring ZrjyekxazMziaqcoty36/7/24 Saúl Davis MD [address] [place] [address] [address] [place] [address] Referring YrgleqofsRapbmydiyz18/7/24 Team Status: Active Member Role Status Dates [...] [address] [place] [address] PCP - GeneralInternal Medicine01/08/23 Marie Tejeda DO [address] [place] [address] PCP - ACO Reach09/10/23 Patrick Beard MD [address] [facility] [address] [place] [address] Referring AqgpjwozbCvqcasfpkpiaqwbq00/7/24 Andrey Grullon MD [address] [place] [address] Referring IiehocahrCazzhsdpu97/7/24 Saúl Davis MD [address] [facility] [address] [place] [address] Referring AdoyxlqciSxhaeadfva75/7/24 Team Status: Inactive Member Role Status Dates [...] DO [address] [place] [address] PCP - GeneralInternal Medicine01/08/23 Marie Tejeda DO [address] [place] [address] PCP - ACO Reach09/10/23 Patrick Beard MD [address] [facility] [address] [place] [address] Referring RltwtumwuVcsssmfqpkgfaxot21/7/24 Andrey Grullon MD [address] [place] [address] Referring SfrwcxkkjXwekdlixe11/7/24 Saúl Davis MD [address] [place] [address] [address] [place] [address] Referring SadnxyxmxRujszhheeh86/7/24Team MemberRelationshipSpecialtyStart Date End Date Marie Tejeda DO [address] [place] [address] PCP - GeneralInternal Medicine01/08/23 Marie Tejeda DO [address] [place] [address] PCP - ACO Reach09/10/23 Patrick Beard MD [address] [facility] [address] [place] [address] Referring VqdnjikdbSidgjdzveyioilmb40/7/24 Andrey Grullon MD [address] [place] [address] Referring EfujogesuSgpkjhwpu45/7/24 Saúl Davis MD [address] [facility] [address] [place] [address] Referring KgjgenhbfAvvugmohtp51/7/24Team MemberRelationshipSpecialtyStart Date End Date Marie Tejeda DO [address] [place] [address] PCP - GeneralInternal Medicine03/30/18 Anatoly Anne CNP [address] [place] [address] ReferringInternal Flcilkce87/16/24Team MemberRelationshipSpecialtyStart DateEnd Date Marie Tejeda DO [address] [place] [address] PCP - GeneralInternal Medicine03/30/18 Anatoly Anne CNP [address] [place] [address] ReferringInternal Qmmsmpdd59/16/24Team MemberRelationshipSpecialtyStart DateEnd Date Marie Tejeda DO [address] [place] [address] PCP - GeneralInternal Medicine01/08/23 Marie Tejeda DO [address] [place] [address] PCP - ACO Reach09/10/23 Patrick Beard MD [address] [facility] [address] [place] [id number] Referring IesjxtvnzAtikkbcevnfwlaaf32/7/24 Adnrey Grullon MD [address] [place] [address] Referring EfpfmycfyVqcnsgnai10/7/24 Saúl Davis MD [address] [facility] [address] [place] [address] Referring XwlauztflXhylxqmscn81/7/24Team MemberRelationshipSpecialtyStart Date End Date Marie Tejeda DO [address] [place] [address] PCP - GeneralInternal Medicine01/08/23 Marie Tejeda DO [address] [place] [address] PCP - ACO Reach09/10/23 Patrick Beard MD 1 [facility] [address] [place], [place] [address] Referring JxbgqfejsQvpwqvzbxeodzdtm39/7/24 Andrey Grullon MD [address] [place] [address] Referring AvimqfkbiMrkreyxte32/7/24 Saúl Davis MD [address] [place] [address] Referring FndrppftaDntoxvsgbe64/7/24Team MemberRelationshipSpecialtyStart Date End Date Marie Tejeda DO [address] [place] [address] PCP - GeneralInternal Medicine03/30/18 Anatoly Anne CNP [address] [place] [address] ReferringInternal Kiujmlxz48/16/24Team MemberRelationshipSpecialtyStart DateEnd Date Marie Tejeda DO [address] [place] [address] PCP - GeneralInternal Medicine03/30/18 Anatoly Anne CNP [address] [place] [address] ReferringInternal Adxkxtzv47/16/24 Team Status: Inactive Member Role Status Dates [...] DO [address] [place] [address] PCP - GeneralInternal Medicine01/08/23 Marie Tejeda DO [address] [place] [address] PCP - ACO Reach09/10/23 Patrick Beard MD 1 [facility] [address] [place] [address] Referring LxclxtjrbPnpvitbtjafmlkjy51/7/24 Andrey Grullon MD [address] [place] [address] Referring TtmmsthinSbkzkpogb56/7/24 Saúl Davis MD [address] [place] [address] [address] [place] [address] Referring SwlwmdnbqGdjmhwqrpk32/7/24Team MemberRelationshipSpecialtyStart Date End Date Marie Tejeda DO [address] [place] [address] PCP - GeneralInternal Medicine01/08/23 Marie Tejeda DO [address] [place] [address] PCP - ACO Reach09/10/23 Patrick Beard MD [address] [facility] [address] [place] [address] Referring GntrkrqyxKdubdxbrhrhnumsk59/7/24 Andrey Grullon MD [address] [place] [address] Referring VuyouoyblFkmnbcfmw13/7/24 aSúl Davis MD [address] [facility] [address] [place] [address] Referring JkdtevdvfAjlsnylvuo04/7/24Team MemberRelationshipSpecialtyStart Date End Date Marie Tejeda DO [address] [place] [address] PCP - GeneralInternal Medicine03/30/18 Anatoly Anne CNP [address] [place] [address] ReferringInternal Fxsysrsw54/16/24Team MemberRelationshipSpecialtyStart DateEnd Date Marie Tejeda DO [address] [address] [place] [address] PCP - GeneralInternal Medicine03/30/18 Anatoly Anne CNP [address] [place] [address] ReferringInternal Desakakw56/16/24Team MemberRelationshipSpecialtyStart DateEnd Date Marie Tejeda DO [address] [place] [address] PCP - GeneralInternal Medicine03/30/18 Anatoly Anne APRN.CNP [address] [place] [address] ReferringInternal Yknhpknr16/16/24 Team Status: Active Member Role Status Dates Marie Tejeda DO Primary Care Provider Active Start: August 29, 2024 Anat Perez , MDReferring ProviderActiveStart: August 29, 2024 Abdulaziz Root , MDAttending Provider, Other ProviderActiveStart: August 29, 2024 Team MemberRelationshipSpecialtyStart DateEnd Date Marie Tejeda DO [address] [place] [address] PCP - GeneralInternal Medicine01/08/23 Marie Tejeda DO [address] [place] [address] PCP - ACO Reach09/10/23 Patrick Beard MD 1 [facility] [address] [place], [place] [id number] Referring BgjuzgojdWaupabkthejojfro46/7/24 Andrey Grullon MD [address] [place] [address] Referring VhmavbnghFrsxzbzgv35/7/24 Saúl Davis MD [address] [facility] [address] [place] [address] Referring ZgpvznpyqCuovwgrkxr96/7/24 Team Status: Inactive Member Role Status Dates Marie Tejeda DO Primary Care Provider Active Start: August 31, 2024 End: August 31, 2024Jose Britoending ProviderActiveStart: August 31, 2024 End: August 31, 2024Team MemberRelationshipSpecialtyStart DateEnd Date Marie Tejeda DO [address] [place] [address] PCP - GeneralInternal Medicine03/30/18 Anatoly Anne, MED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.MOTOR ROOM CONTROLLER [address] [place] [address] ReferringInternal Kwncilje52/16/24Team MemberRelationshipSpecialtyStart DateEnd Date Marie Tejeda DO [address] [place] [address] PCP - GeneralInternal Medicine03/30/18 Anatoly Anne, MED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.MOTOR ROOM CONTROLLER [address] [place] [address] ReferringInternal Xtlndcui55/16/24Team MemberRelationshipSpecialtyStart DateEnd Date Marie Tejeda DO [address] [place] [address] PCP - GeneralInternal Medicine01/08/23 Marie Tejeda DO [address] [place] [address] PCP - ACO Reach09/10/23 Patrick Beard MD 1 [facility] [address] [place] [address] Referring TxsycqitdHrilgyknpmbdfflh77/7/24 Andrey Grullon MD [address] [place] [address] Referring RlxlabjkrJjykvwywd60/7/24 Saúl Davis MD [address] [facility] [address] [place] [address] Referring NrwaqbisnKnevprhjqa19/7/24Team MemberRelationshipSpecialtyStart Date End Date Marie Tejeda DO [address] [place] [address] PCP - GeneralInternal Medicine03/30/18 Anatoly Anne, MED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.MOTOR ROOM CONTROLLER [address] [place] [address] ReferringInternal Hneowlbb56/16/24Team MemberRelationshipSpecialtyStart DateEnd Date Marie Tejeda DO [address] [place] [address] PCP - GeneralInternal Medicine03/30/18 Anatoly Anne, MED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.MOTOR ROOM CONTROLLER [address] [place] [address] ReferringInternal Qmmqiwed25/16/24Team MemberRelationshipSpecialtyStart DateEnd Date Marie Tejeda DO [address] [place] [address] PCP - GeneralInternal Medicine03/30/18 Anatoly Anne, MED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.MOTOR ROOM CONTROLLER [address] [place] [address] ReferringInternal Hyikkhmn97/16/24Team MemberRelationshipSpecialtyStart DateEnd Date Marie Tejeda DO [address] [place] [address] PCP - GeneralInternal Medicine03/30/18 [facility], MED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.MOTOR ROOM CONTROLLER [address] [place] [address] ReferringInternal Godklaqx43/16/24Team MemberRelationshipSpecialtyStart DateEnd Date Marie Tejeda, DO [address] [place] [address] PCP - GeneralInternal Medicine03/30/18 [facility], MED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.MOTOR ROOM CONTROLLER [address] [place] [address] ReferringInternal Ycfbardx02/16/24Team MemberRelationshipSpecialtyStart DateEnd Date Marie Tejeda, DO [address] [place] [address] PCP - GeneralInternal Medicine03/30/18 [facility], MED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.MOTOR ROOM CONTROLLER [address] [place] [address] ReferringInternal Hhpubmtp46/16/24Team MemberRelationshipSpecialtyStart DateEnd Date Marie Tejeda, DO [address] [place] [address] PCP - GeneralInternal Medicine03/30/18 Anatoly Anne, MED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.MOTOR ROOM CONTROLLER [address] [place] [address] ReferringInternal Ewexrsew73/16/24Team MemberRelationshipSpecialtyStart DateEnd Date Marie Tejeda DO [address] [place] [address] PCP - GeneralInternal Medicine03/30/18 Anatoly Anne, MED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.MOTOR ROOM CONTROLLER [address] [place] [address] ReferringInternal Xrgxrsnd90/16/24Team MemberRelationshipSpecialtyStart DateEnd Date Marie Tejeda DO [address] [place] [address] PCP - GeneralInternal Medicine03/30/18 Anatoly Anne, MED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.MOTOR ROOM CONTROLLER [address] [place] [address] ReferringInternal Txdkhrrp57/16/24 Team Status: Inactive Member Role Status Dates Marie Tejeda DO Primary Care Provider Active Start: October 13, 2024 End: October 13, 2024Linda AnaRAHEEL stephenttmyrna ProviderActiveStart: October 13, 2024 End: October 13, 2024Team MemberRelationshipSpecialtyStart DateEnd Date Marie Tejeda DO [address] [place] [address] PCP - GeneralInternal Medicine01/08/23 Marie Tejeda DO [address] [place] [address] PCP - ACO Reach09/10/23 Patrick Beard MD 1 [facility] [address] [place] [address] Referring EiydzolheGbdcuwabrvfeztii40/7/24 Andrey Grullon MD [address] [place] [address] Referring OerlvaekzLjhtlckru21/7/24 Saúl Davis MD 703 [facility] [address], [address] [place] [address] Referring SxzztiwuvBslzcdzeez85/7/24Team MemberRelationshipSpecialtyStart Date End Date Marie Tejeda DO [address] [place] [address] PCP - GeneralInternal Medicine03/30/18 Anatoly Anne APRN.MOTOR ROOM CONTROLLER [address] [place] [address] ReferringInternal Pfvsrqfy61/16/24Team MemberRelationshipSpecialtyStart DateEnd Date Marie Tejeda DO [address] [place] [address] PCP - GeneralInternal Medicine03/30/18 Anatoly Anne APRN.MOTOR ROOM CONTROLLER [address] [place] [address] ReferringInternal Amqugexp81/16/24 Team Status: Active Member Role Status Dates Marie Tejeda DO Primary Care Provider Active Start: November 30, 2024 Anat Perez MDOther ProviderActiveStart: November 30, 2024 Abdulaziz Root MDAttending ProviderActiveStart: November 30, 2024 Team MemberRelationshipSpecialtyStart DateEnd Date Marie Tejeda DO [address] [place] [address] PCP - GeneralInternal Medicine03/30/18 Cally, Anatoly, MED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.MOTOR ROOM CONTROLLER [address] [place] [address] ReferringInternal Whjohxyv48/16/24Team MemberRelationshipSpecialtyStart DateEnd Date Marie Tejeda DO [address] [place] [address] PCP - GeneralInternal Medicine03/30/18 Cally, Anatoly, MED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.MOTOR ROOM CONTROLLER [address] [place] [address] ReferringInternal Vrgftlev10/16/24Team MemberRelationshipSpecialtyStart DateEnd Date Marie Tejeda DO [address] [place] [address] PCP - GeneralInternal Medicine03/30/18 Cally, Anatoly, MED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.MOTOR ROOM CONTROLLER [address] [place] [address] ReferringInternal Jjobrtfs60/16/24Team MemberRelationshipSpecialtyStart DateEnd Date Marie Tejeda DO [address] [place] [address] PCP - GeneralInternal Medicine01/08/23 Marie Tejeda DO [address] [place] [address] PCP - ACO Reach09/10/23 Patrick Beard MD 1 [facility] [address] [place] [address] Referring BlmgucaapDmpmqjkbhgcxrhmz83/7/24 Andrey Grullon MD [address] [place] [address] Referring HfmbwibwlGwiwmmraa65/7/24 Saúl Davis MD 703 [facility] 2, [address] [place] [address] Referring MjvpglkfkMpzfbgsmuq52/7/24Team MemberRelationshipSpecialtyStart Date End Date Marie Tejeda DO [address] [place] [address] PCP - GeneralInternal Medicine01/08/23 Marie Tejeda DO [address] [place] [address] PCP - ACO Reach09/10/23 Patrick Beard MD 1 [facility] [address] [place] [address] Referring NwweyytxzAksjnkwfkluggsom51/7/24 Andrey Grullon MD [address] [place] [address] Referring RtigrwxunVecftqgzf28/7/24 Saúl Davis MD 703 [facility] 2, [address] [place] [address] Referring JhtqpxnshNiaclhhpkw02/7/24Team MemberRelationshipSpecialtyStart Date End Date Marie Tejeda DO [address] [place] [address] PCP - GeneralInternal Medicine01/08/23 Marie Tejeda DO [address] [place] [address] PCP - ACO Reach09/10/23 Patrick Beard MD 1 [facility] [address] [place] [address] Referring MktuuthlbEevdfmyyxwenziyc36/7/24 Andrey Grullon MD [address] [place] [address] Referring GkvakhdkqPrweewjlh99/7/24 Saúl Davis MD 703 [facility] 2, [address] [place] [address] Referring OszenwzuyEkhtipnzdf76/7/24 Team Status: Active Member Role Status Dates Marie Tejeda DO Primary Care Provider Active Start: March 02, 2025 Anat Perez MDOther ProviderActiveStart: March 02, 2025 Abdulaziz Root MDAttending ProviderActiveStart: March 02, 2025 Team MemberRelationshipSpecialtyStart DateEnd Date Marie Tejeda DO [address] [place] [address] PCP - GeneralInternal Medicine03/30/18 Anatoly Anne APRN.MOTOR ROOM CONTROLLER [address] [place] [address] ReferringInternal Cwlskusq60/16/24 Team Status: Inactive Member Role Status Dates Marie Tejeda DO Primary Care Provider Active Start: March 27, 2025 End: March 27, 2025Linda Aryan Perez ProviderActiveStart: March 27, 2025 End: March 27, 2025Team MemberRelationshipSpecialtyStart DateEnd Date Marie Tejeda DO [address] [place] [address] PCP - GeneralInternal Medicine01/08/23 Marie Tejeda DO [address] [facility] [address] [place] [address] PCP - ACO Reach09/10/23 Patrick Beard MD 1 [facility] [address] [place] [address] Referring MdmmhgonfVjszrywsypyidysl32/7/24 Andrey Grullon MD [address] [place] [address] Referring WsbqiqwtvNbdadjoyt31/7/24 Saúl Davis MD [address] [place] [address] [address], [address] [place] [address] Referring JxznnwrisMlulchmxwu90/7/24Team MemberRelationshipSpecialtyStart Date End Date Marie Tejeda DO [address] [place] [address] PCP - GeneralInternal Medicine01/08/23 Marie Tejeda DO [address] [place] [address] PCP - ACO Reach09/10/23 Patrick Beard MD 1 [facility] [address] [place] [address] Referring SilxslwqgIelenltbxgcjgwky53/7/24 Andrey Grullon MD [address] [place] [address] Referring TuulhkfqrLajcvcbrn02/7/24 Saúl Davis MD [address] [place] [address] [address], [address] [place] [address] Referring FaeegivkpFaenvssdym27/7/24 Team Status: Active Member Role/Relationship Status Dates Anat Perez MD Assistant Terminal Manager Active Shikha Aguilera Care ProviderActive Team Status: [...] DO [address] [place] [address] PCP - GeneralInternal Medicine01/08/23 Marie Tejeda DO [address] [place] [address] PCP - ACO Reach09/10/23 Patrick Beard MD 1 [facility] [address] [place] [address] Referring ZmntzvdweBayigfmbixpzinnl77/7/24 Andrey Grullon MD [address] [place] [address] Referring ExsprrrdsEuoiebzqe51/7/24 Saúl Davis MD [address] [place] [address] 2, [address] [place] [address] Referring GxhkowlfqHwbfkbnqdd37/7/24Team MemberRelationshipSpecialtyStart Date End Date Almita Deras DO [address] [place] [address] PCP - ACO Reach Marie Tejeda DO [address] [place] [address] PCP - GeneralInternal Medicine01/08/23 Marie Tejeda DO [address] [place] [address] PCP - ACO Reach09/10/23 Patrick Beard MD 1 [facility] [address] [place] [address] Referring CssyxqjsaPsklbeejjgkhnwvz22/7/24 Andrey Grullon MD [address] [place] [address] Referring LpzaknaxzVvucrthmp20/7/24 Saúl Davis MD [address] [place] [address] 2, [address] [place] [address] Referring GkzquljdqTllxauvaqw16/7/24Team MemberRelationshipSpecialtyStart Date End Date Mraie Tejeda DO [address] [place] [address] PCP - GeneralInternal Medicine01/08/23 Marie Tejeda DO [address] [place] [address] PCP - ACO Reach09/10/23 Patrick Beard MD 1 [facility] [address] [place] [address] Referring YjubhcnbbFrmvzdvcvleuppld07/7/24 Andrey Grullon MD [address] [place] [address] Referring XiuqszwzrBxkhzwlez92/7/24 Saúl Davis MD [address]03 [facility] [address], [address] [place] [address] Referring XrjaihnnyTxybgxtdxt79/7/24 (unrecognized sect ion and content) No Status Records FoundNo Status Records FoundNo Status Records FoundNo Status Records FoundNo Status Records FoundNo Status Records FoundNo Status Records FoundNo Status Records FoundNo Status Records FoundNo Status Records FoundNo Status Records FoundNo Status Records FoundNo Status Records FoundNo Status Records Found INFORMATION SOURCE (unrecogn ized section and content) DATE CREATED AUTHOR 01/29/2022 [facility] DATE CREATED AUTHOR AUTHOR'S ORGANIZ ATION 06/11/2022 [facility] DATE CREATED AUTHOR AUTHOR'S ORGANIZ ATION 06/12/2023 [facility] DATE CREATED AUTHOR AUTHOR'S ORGANIZ ATION 10/23/2023 [facility] DATE CREATED AUTHOR AUTHOR'S ORGANIZ ATION 11/18/2023 [facility] DATE CREATED AUTHOR AUTHOR'S ORGANIZ ATION 01/27/2024 [facility] DATE CREATED AUTHOR AUTHOR'S ORGANIZ ATION 05/05/2024 [facility] DATE CREATED AUTHOR AUTHOR'S ORGANIZ ATION 03/08/2025 [facility] DATE CREATED AUTHOR AUTHOR'S ORGANIZ ATION 05/03/2025 [facility] DATE CREATED AUTHOR AUTHOR'S ORGANIZ ATION 05/04/2025 [facility] DATE CREATED AUTHOR AUTHOR'S ORGANIZ ATION 05/19/2025 [facility] DATE CREATED AUTHOR AUTHOR'S ORGANIZ ATION 05/22/2025 [facility] DATE CREATED AUTHOR AUTHOR'S ORGANIZ ATION 05/23/2025 [facility] Source Comments (unrecognize d section and content) In the event this informatio n is protected by the Federal Confidentiality of Alcohol and Drug Abuse Patient Records regulations: The Federal rules restrict any use of the information to criminally investigate or prosecute any alcohol or drug abuse patient.[facility] the event this information is protected by the Federal Confidentiality of Alcohol and Drug Abuse Patient Records regulations: The Federal rules restrict any use of the information to criminally investigate or prosecute any alcohol or drug abuse patient.[facility] Center[facility] the event this information is protected by the Federal Confidentiality of Alcohol and Drug Abuse Patient Records regulations: The Federal rules restrict any use of the information to criminally investigate or prosecute any alcohol or drug abuse patient.[facility] Center[facility] the event this information is protected by the Federal Confidentiality of Alcohol and Drug Abuse Patient Records regulations: The Federal rules restrict any use of the information to criminally investigate or prosecute any alcohol or drug abuse patient.[facility] Center[facility] the event this information is protected by the Federal Confidentiality of Alcohol and Drug Abuse Patient Records regulations: The Federal rules restrict any use of the information to criminally investigate or prosecute any alcohol or drug abuse patient.[facility] CenterIn the event this information is protected by the Federal Confidentiality of Alcohol and Drug Abuse Patient Records regulations: The Federal rules restrict any use of the information to criminally investigate or prosecute any alcohol or drug abuse patient.[facility] Center[facility] the event this information is protected by the Federal Confidentiality of Alcohol and Drug Abuse Patient Records regulations: The Federal rules restrict any use of the information to criminally investigate or prosecute any alcohol or drug abuse patient.[facility] CenterIn the event this information is protected by the Federal Confidentiality of Alcohol and Drug Abuse Patient Records regulations: The Federal rules restrict any use of the information to criminally investigate or prosecute any alcohol or drug abuse patient.[facility] CenterIn the event this information is protected by the Federal Confidentiality of Alcohol and Drug Abuse Patient Records regulations: The Federal rules restrict any use of the information to criminally investigate or prosecute any alcohol or drug abuse patient.[facility] CenterIn the event this information is protected by the Federal Confidentiality of Alcohol and Drug Abuse Patient Records regulations: The Federal rules restrict any use of the information to criminally investigate or prosecute any alcohol or drug abuse patient.[facility] CenterIn the event this information is protected by the Federal Confidentiality of Alcohol and Drug Abuse Patient Records regulations: The Federal rules restrict any use of the information to criminally investigate or prosecute any alcohol or drug abuse patient.[facility] CenterIn the event this information is protected by the Federal Confidentiality of Alcohol and Drug Abuse Patient Records regulations: The Federal rules restrict any use of the information to criminally investigate or prosecute any alcohol or drug abuse patient.[facility] CenterIn the event this information is protected by the Federal Confidentiality of Alcohol and Drug Abuse Patient Records regulations: The Federal rules restrict any use of the information to criminally investigate or prosecute any alcohol or drug abuse patient.[facility] CenterIn the event this information is protected by the Federal Confidentiality of Alcohol and Drug Abuse Patient Records regulations: The Federal rules restrict any use of the information to criminally investigate or prosecute any alcohol or drug abuse patient.[facility] CenterIn the event this information is protected by the Federal Confidentiality of Alcohol and Drug Abuse Patient Records regulations: The Federal rules restrict any use of the information to criminally investigate or prosecute any alcohol or drug abuse patient.[facility] CenterIn the event this information is protected by the Federal Confidentiality of Alcohol and Drug Abuse Patient Records regulations: The Federal rules restrict any use of the information to criminally investigate or prosecute any alcohol or drug abuse patient.[facility] CenterIn the event this information is protected by the Federal Confidentiality of Alcohol and Drug Abuse Patient Records regulations: The Federal rules restrict any use of the information to criminally investigate or prosecute any alcohol or drug abuse patient.[facility] CenterIn the event this information is protected by the Federal Confidentiality of Alcohol and Drug Abuse Patient Records regulations: The Federal rules restrict any use of the information to criminally investigate or prosecute any alcohol or drug abuse patient.[facility] CenterIn the event this information is protected by the Federal Confidentiality of Alcohol and Drug Abuse Patient Records regulations: The Federal rules restrict any use of the information to criminally investigate or prosecute any alcohol or drug abuse patient.[facility] CenterIn the event this information is protected by the Federal Confidentiality of Alcohol and Drug Abuse Patient Records regulations: The Federal rules restrict any use of the information to criminally investigate or prosecute any alcohol or drug abuse patient.[facility] CenterIn the event this information is protected by the Federal Confidentiality of Alcohol and Drug Abuse Patient Records regulations: The Federal rules restrict any use of the information to criminally investigate or prosecute any alcohol or drug abuse patient.[facility] CenterIn the event this information is protected by the Federal Confidentiality of Alcohol and Drug Abuse Patient Records regulations: The Federal rules restrict any use of the information to criminally investigate or prosecute any alcohol or drug abuse patient.[facility] CenterIn the event this information is protected by the Federal Confidentiality of Alcohol and Drug Abuse Patient Records regulations: The Federal rules restrict any use of the information to criminally investigate or prosecute any alcohol or drug abuse patient.[facility] CenterIn the event this information is protected by the Federal Confidentiality of Alcohol and Drug Abuse Patient Records regulations: The Federal rules restrict any use of the information to criminally investigate or prosecute any alcohol or drug abuse patient.[facility] CenterIn the event this information is protected by the Federal Confidentiality of Alcohol and Drug Abuse Patient Records regulations: The Federal rules restrict any use of the information to criminally investigate or prosecute any alcohol or drug abuse patient.[facility] CenterIn the event this information is protected by the Federal Confidentiality of Alcohol and Drug Abuse Patient Records regulations: The Federal rules restrict any use of the information to criminally investigate or prosecute any alcohol or drug abuse patient.[facility] CenterIn the event this information is protected by the Federal Confidentiality of Alcohol and Drug Abuse Patient Records regulations: The Federal rules restrict any use of the information to criminally investigate or prosecute any alcohol or drug abuse patient.[facility] CenterIn the event this information is protected by the Federal Confidentiality of Alcohol and Drug Abuse Patient Records regulations: The Federal rules restrict any use of the information to criminally investigate or prosecute any alcohol or drug abuse patient.[facility] CenterIn the event this information is protected by the Federal Confidentiality of Alcohol and Drug Abuse Patient Records regulations: The Federal rules restrict any use of the information to criminally investigate or prosecute any alcohol or drug abuse patient.[facility] CenterIn the event this information is protected by the Federal Confidentiality of Alcohol and Drug Abuse Patient Records regulations: The Federal rules restrict any use of the information to criminally investigate or prosecute any alcohol or drug abuse patient.[facility] CenterIn the event this information is protected by the Federal Confidentiality of Alcohol and Drug Abuse Patient Records regulations: The Federal rules restrict any use of the information to criminally investigate or prosecute any alcohol or drug abuse patient.[facility] CenterIn the event this information is protected by the Federal Confidentiality of Alcohol and Drug Abuse Patient Records regulations: The Federal rules restrict any use of the information to criminally investigate or prosecute any alcohol or drug abuse patient.[facility] CenterIn the event this information is protected by the Federal Confidentiality of Alcohol and Drug Abuse Patient Records regulations: The Federal rules restrict any use of the information to criminally investigate or prosecute any alcohol or drug abuse patient.[facility] Center[facility] the event this information is protected by the Federal Confidentiality of Alcohol and Drug Abuse Patient Records regulations: The Federal rules restrict any use of the information to criminally investigate or prosecute any alcohol or drug abuse patient.[facility] the event this information is protected by the Federal Confidentiality of Alcohol and Drug Abuse Patient Records regulations: The Federal rules restrict any use of the information to criminally investigate or prosecute any alcohol or drug abuse patient.[facility] the event this information is protected by the Federal Confidentiality of Alcohol and Drug Abuse Patient Records regulations: The Federal rules restrict any use of the information to criminally investigate or prosecute any alcohol or drug abuse patient.[facility] CenterIn the event this information is protected by the Federal Confidentiality of Alcohol and Drug Abuse Patient Records regulations: The Federal rules restrict any use of the information to criminally investigate or prosecute any alcohol or drug abuse patient.[facility] CenterIn the event this information is protected by the Federal Confidentiality of Alcohol and Drug Abuse Patient Records regulations: The Federal rules restrict any use of the information to criminally investigate or prosecute any alcohol or drug abuse patient.[facility] Goals (unrecognized section and content) [...] BE BASED ON THE PRIMARY CLINICAL RECORDS. [facility] [employer] [facility]. provides no warranty or guarantee of the accuracy or completeness of information in this document.
--- NOTE | 2025-06-20 17:53 | PM.IMHP1 ---
Internal Medicine - H&P: HPI History of Present Illness Chief complaint: UTI + Leukocytosis Narrative: This is an 89-year-old male with past medical history of type 1 diabetes, chronic pancreatitis, CAD with PCI, chronic systolic heart failure, hypertension, dyslipidemia, pacemaker in place, former smoker, history of bilateral ureteral hydronephrosis likely in the setting of prostatomegaly and BPH, status post TURP with Dr. Melchor few weeks ago. Presents today with bilateral low back pain. History from the patient, ED staff, and chart review. Patient states that around few weeks ago he fell not sure how exactly he did fall reports to be some loss of consciousness however states that since then he has been experiencing low back pain, bilateral, comes and goes, 9/10 sharp and stabbing, do not radiate to his lower extremities however cause pain when he tries to move his lower extremities. Made worse with cough and moving and better with Tylenol. He states that the procedure he had with Dr. Melchor was after that the back pain started, denies to me any urinary symptoms or abdominal pain or nausea or vomiting but reports to me chills with no fever. No urinary or bowel habit changes. In the ED, patient's vitals were stable, and his CBC did have leukocytosis of 17.5 K with left shift. Otherwise his hemoglobin and platelets were stable. His chemistry showed sodium of 130, BUN of 70 and creatinine of 1.7 with recent BUN/creatinine of 36 and 1.39 back in May 05, his glucose was 320. Lumbar spine x-ray done today showed osteopenia with scoliosis and degenerative changes with no definitive acute bony injury. Thoracic spine x-ray did show osteopenia with mild thoracic compression deformity of unknown chronicity. CT abdomen pelvis showed moderate severe hydroureteronephrosis with bladder distention possibly due to enlarged prostate. ED reached out to urology, Dr. Melchor who stated that the patient can be admitted to our facility and recommended Kimble placement where 500 cc of urine were drained. When I saw the patient was very pleasant cooperative at baseline mental status no focal deficits. Review of Systems ROS Status of ROS 10 or more systems reviewed and unremarkable except as noted in history and below [facility] Medical History (Updated 06/20/25 @ 18:00 by Lisa Hidaglo MD) H/O chronic pancreatitis ?Z87.19 - Personal history of other diseases of the digestive system (ICD-10) CAD (coronary artery disease) ?I25.10 - Atherosclerotic heart disease of redding coronary artery without angina pectoris (ICD-10) Insulin dependent diabetes mellitus Atherosclerosis ?I70.90 - Unspecified atherosclerosis (ICD-10) Closed fracture of right hip requiring operative repair ?S72.001A - Fracture of unspecified part of neck of right femur, initial encounter for closed fracture (ICD-10) Diabetes ?E11.9 - Type 2 diabetes mellitus without complications (ICD-10) Surgical History (Updated 08/22/23 @ 10:52 by Lamar Mahan) H/O heart artery stent ?Z95.5 - Presence of coronary angioplasty implant and graft (ICD-10) 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 (ICD-10) 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) Family History (Updated 04/10/25 @ 05:51 by Thania Zhang RN) Other Family history of myocardial infarction Social History (Updated 04/10/25 @ 05:52 by Thania Zhang RN) Within the past year, how often did you have a drink containing alcohol: monthly or less Smoking status: Former smoker Non-prescribed substance use: denies use Highest level of school completed/degree received: some college, no degree Are you now , , , , never or living with a partner: In a typical week, how many times do you talk on the telephone with family, friends, or neighbors: twice per week How often do you get together with friends or relatives: twice per week Little interest or pleasure in doing things: not at all Feeling down, depressed, or hopeless: not at all Feel stressed/tense/nervous/anxious/difficulty sleeping: to some extent Do you think of yourself as: straight/heterosexual Gender Identity: male Meds Home Medications and Allergies Home Medications ?Medication ?Instructions ?Recorded ?Confirmed ?Type [id number](pork)24,000-76,000-120,000 2 cap PO TIDWM 08/21/23 06/20/25 History unit capsule,del rel (Creon) nitroglycerin 0.4 mg sublingual 0.4 mg sublingual Q5M PRN chest 08/21/23 06/20/25 History tablet pain atorvastatin 40 mg tablet 40 mg PO .qhs 04/10/25 06/20/25 History blood-glucose sensor (Dexcom G7 04/10/25 06/20/25 History Sensor device) insulin pump cart,auto,BT,G6/7 04/10/25 06/20/25 History (Omnipod 5 G6-G7 Pods (Gen 5) subcutaneous cartridge) aspirin 81 mg chewable tablet 81 mg PO QD #0 tabs 04/13/25 06/20/25 Rx glucagon 1 mg solution for 1 mg IV Q15M PRN Hypoglycemia #0 ea 04/13/25 06/20/25 Rx injection (Glucagon Emergency Kit) insulin aspart U-100 100 unit/mL 3 - 15 unit (0.03 - 0.15 mL) 04/13/25 06/20/25 Rx (3 mL) subcutaneous pen (Novolog subcut ACHS #0 mL FlexPen U-100 Insulin aspart) losartan 25 mg tablet 25 mg PO DAILY #30 tabs 04/13/25 06/20/25 Rx tamsulosin 0.4 mg capsule 0.4 mg PO QD #0 caps 04/13/25 06/20/25 Rx insulin glargine 100 unit/mL (3 12 unit subcut QD PRN INSULIN PUMP 06/20/25 06/20/25 History mL) subcutaneous pen (Lantus FAILURE Solostar U-100 Insulin) metoprolol succinate 25 mg 12.5 mg PO .QHS 06/20/25 06/20/25 History tablet,extended release 24 hr paroxetine HCl 40 mg tablet 40 mg PO .qd 06/20/25 06/20/25 History spironolactone 25 mg tablet 25 mg PO .QD 06/20/25 06/20/25 History Allergies Allergy/AdvReac Type Severity Reaction Status Date / Time No Known Drug Allergies Allergy Verified 06/20/25 12:25 Exam Narrative Exam Narrative: General:The patient appears well and in no apparent distress. Patient is resting comfortably on cart. He is ill-appearing. Pleasant and cooperative. Skin:Warm, dry, no pallor noted.There is no rash noted. Head:Normocephalic, atraumatic Neck: Soft, supple, no JVD, no lymphadenopathy, thyroid Eye: Normal conjunctiva, no drainage Ears, Nose, Mouth, and Throat: oral mucosa is moist. Nares patent. Cardiovascular:Regular Rate and Rhythm Respiratory:Patient is in no distress, no accessory muscle use, lungs are clear to auscultation, no wheezing, rales or rhonchi Back: His back is examined there is no bruise rash or abrasion. He has some tenderness in the lower thoracic and upper lumbar area. He does have bilateral passive and active straight leg test. No hyperreflexia. No saddle anesthesia reported by the pain GI: Soft and nontender, no signs of acute abdomen, no Musculoskeletal: The patient has no evidence of calf tenderness, no pitting edema, symmetrical pulses noted bilaterally Neurological:A&O x 3 and following commands, normal speech, no focal deficit but generalized weakness in the bilateral lower extremities likely from pain from his back. Otherwise no cranial nerve deficits. Constitutional Vital Signs, click to edit/add: Last Vital Signs Temp 99.7 F 06/20/25 13:50 Pulse 68 06/20/25 17:15 Resp 20 06/20/25 17:15 BP 163/60 H 06/20/25 15:43 Pulse Ox 98 06/20/25 16:15 O2 Del Method Room Air 06/20/25 12:27 Internal Medicine - H&P: Reslt Labs Labs: Short CBC 06/20/25 Range/Units 13:00 WBC 17.5 H (4.0-11.0) 10^3/uL Hgb 9.2 L (14.0-18.0) g/dL Hct 27.1 L (42.0-54.0) % Plt Count 285 (150-450) 10^3/uL BMP 06/20/25 13:00 Sodium 130 L Potassium 4.6 Chloride 96 L Carbon Dioxide 22.7 BUN 70.0 H Creatinine 1.70 H Glucose 320 H Calcium 8.5 Urine 06/20/25 Range/Units 13:45 Urine Color Yellow (YELLOW) Urine Clarity Cloudy A (CLEAR) Urine pH 6.0 (5.0-9.0) Ur Specific [place] 1.010 (1.005-1.025) Urine Protein Trace (NEG/TRACE) mg/dL Urine Glucose (UA) Negative (NEGATIVE) mg/dL Urinary Catheter Management Urinary Catheter Management Urethral: Cath placed during this visit: yes Urethral indwelling: Yes Reason for continuing: acute urinary retention Insertion date: 06/20/25 Insertion time: 16:44 Assessment and Plan Assessment and Plan (1) Urinary tract infection: (2) BPH (benign prostatic hyperplasia): (3) Urinary retention: (4) DENISHA (acute kidney injury): Plan Complicated UTI in the setting of recent urologic procedure DENISHA on CKD likely in the setting of obstructive uropathy from prostatomegaly Recent fall with low back pain with no alarming features Debility and frailty - Admit patient to medical floor with telemetry - I will cover Pseudomonas so we will start Zosyn IV to be dosed by pharmacy - Follow-up on urine and blood culture - Obtain MRI lumbar spine and MRI thoracic spine without contrast to better delineate the patient's low back pain/fracture - PT/OT evaluation - I reconciled the patient's medication -Urology recommended outpatient follow-up and they are okay with admitting the patient here. I will discharge the patient a Kimble when time comes for discharge - DVT prophylax with HSQ - G I prophylaxis with IV pantoprazole every 24 hours 40 mg - I reconciled the patient's insulin orders to make sure his blood glucose under control -For pain control, I will start with Tylenol 6 and 50 every 6 hours as needed for pain 1-7/10 and IV morphine 1 mg every 4-6 hours for pain more than 7/10 with close monitoring of vitals - CODE STATUS is DNR CCA without intubation. I clarified that with the patient at bedside that in the chart - Discussed the plan with the patient in details. Answered all his question
[2025-06-20 18:32] LABS: Alanine Aminotransferase 18 U/L (16-63); Albumin Globulin Ratio 0.6; Albumin Level 2.5 g/dL (3.4-5.0); Alkaline Phosphatase 116 U/L (46-116); Anion Gap 14.1; Aspartate Amino Transferase 17 U/L (15-37); Blood Urea Nitrogen 65.0 mg/dL (7.0-18.0); Calcium 8.4 mg/dL (8.5-10.1); Carbon Dioxide 23.0 mmol/L (21.0-32.0); Chloride 97 mmol/L (98-107); Estimated GFR (African America 52 (>=60 mL/min/1.73m^2); Estimated GFR (Non-African Ame 43 (>=60 mL/min/1.73m^2); Globulin 4.1 g/dL; Glucose 370 mg/dL (74-106); Potassium 4.1 mmol/L (3.5-5.1); Sodium 130 mmol/L (136-145); Total Protein 6.6 g/dL (6.4-8.2)
--- OUTSIDE RECORDS SUMMARY | 2025-06-20 19:35 | XMS_ITS | Continuity of Care Document ---
Author Organization [facility] Address [address] [place] [address] Phone Care Team Providers Care Rn Ostomy Name Role Phone Arnold Castro DO Primary Care Provider Anat Perez MD Attending Provider Anat Perez MD Other Provider Abdulaziz Root MD Attending Provider [phone] Sheldon Dobson DO Attending Provider Care Teams Patient Care Team Team Status: Active Member Role/Relationship Status Dates Anat Perez MD Director Ship Active Shikha Aguilera Care ProviderActive Visit Care [...] May 09, 2025 End: May 09, 2025 Visit Care Team Team Status: Active Member Role/Relationship Status Dates Arnold Castro DO Primary Care Provider Active Start: June 11, 2025 Anat Perez MDOther ProviderActiveStart: June 11, 2025 Abdulaziz Root MDAttending ProviderActiveStart: June 11, 2025 Patient Care Team Team Status: Inactive Member Role/Relationship Status Dates Sheldon Dobson DO Attending Provider Active S tart: June 20, 2025 End: June 20, 2025 Chief Complaint and Reason for Visit Chief Complaint Admit Date 6 week f/u May 09, 2025 1 0:11am I47.2 Z95.810 June 11, 2025 1 :48pm Reason for Visit Admit Date Ischemic cardiomyopathy March 27, 2025 9:54am Type 1 diabetes mellitus March 27, 2025 9:54am Acute GI bleeding March 27, 2025 9:54am Coronary artery disease invo lving [place] coronary artery of [place] heart [place] March 27, 2025 9:54am Hypertension [...] 2025 10:11am Coronary artery disease invo lving [place] coronary artery of [place] heart [place] May 09, 2025 10:11am Hypertension [...] Vertebral fracture, closedMarch 2023 3:08pmUnknownActiveType 1 diabetes mellitusApril 2023 8:57amUnknownActiveCAD (coronary artery disease)May 04, 2023 11:07amUnknownActiveSinus bradycardiaOctober 2023 3:52pmUnknown ActiveH pylori ulcerApril 2023 7:48amUnknownActiveIschemic cardiomyopathy February 15, 2024 10:01amUnknownActiveFracture of C5 vertebra, [facility] 3:08pmUnknownActiveS/P ICD (internal cardiac defibrillator) procedure [...] of pancreatectomyOctober 2022 4:34pmUnknownResolvedCoronary artery disease involving [place] coronary artery of [place] heart without angina pectorisJuly 2023 1:40pmUnknownResolvedAbnormal EKGOctober [...] 9:49amadminister over 30 mins Atorvastatin 80 mg lizmxmEkkinfukvkkb81LMCPSukml at noeqvkw95178Kdngwo 2023 7:12amApril 2024 7:22amFurosemide 20 mg tabletDiscontinued0.ROUTE .DHXYTSN960Odbxnps 2024 11:46amFebruary 2024 10:10amTAKE 1 TABLET BY MOUTH EVERY DAY AT 8 AMMetoprolol Succinate 25 mg tablet extended release 24 hr Csusqemjemdw68.5MGPOTwice xuukx62019Embis 2024 8:20amMay 2024 8:38am Atorvastatin 80 mg qkwialEjjrbhsakgmo71NLJOHkhkh at nculwqg75594Hyeis 2024 7:22amSeptember 2024 9:49amMetoprolol Succinate 25 mg tablet extended release 24 ouEzjfbephxhnb60.5MGPOTwice efiys76236Txu 2024 8:38amSeptember 2024 9:50amSpironolactone 25 mg vanhpgQkebgmuvuugg27BXYKDmcqz32511Uuni 2024 7:09amSeptember 2024 8:45amClopidogrel 75 mg tabletDiscontinued 75MGPODailyFebruary 2023 12:00amJuly 2023 12:25pmInsulin Aspart U- 100 (Novolog U-100 Insulin Aspart) 100 unit/mL ejpupsngUitqqlsrbtru69XQQN CNTSUBQINFDailyFebruary 2023 12:00amFebruary 2023 2:28pmper insulin pumpFurosemide 20 mg tabletDiscontinuedMGFebruary 2023 12:00amFebruary 2023 2:28pmAcetaminophen 500 mg ZmzskuRihebducjfsd399CTZBOiauc 6 hours as needed for painFebruary 2023 12:00amFebruary 2024 10:10am Lyjxauktjcgt-Srlqangt-Ocivmi (Multivitamin 50 Plus) bcmqslJnpzqvzdyadn0WLGWN DailyFebruary 2023 12:00amJuly 2023 12:25pmOn Hold: duplicate Lactobacillus Acidophilus (Probacap) 10 billion cell jbflcypBuhfkbfqemrn118PFW CELLSPODailyFebruary 2023 12:00amFebruary 2023 2:28pmInsulin Glargine (Lantus Solostar U-100 Insulin) 100 unit/mL (3 mL) Insulin Pen Gotzrzbstnhu87PILRYTFAMYBhqfhgvUeaibjsi 2023 12:00amJanuary 2024 7:12pmCholecalciferol (Vitamin D3) (Vitamin D3) 50 mcg (2,000 unit) tablet Gwkojrtnlvqn52VNCSRHkzwbZznpwchg 2023 12:00amApril 2023 1:44pm Pantoprazole (Protonix) 40 mg tablet,delayed release (DR/EC)Eetptsqwkxub38PXBX Twice sueai298422Oomjccbe 2023 12:00amMay 2023 12:22pm40 mg p.o. twice daily x 2 weeks, followed by 40 mg p.o. daily. Please dispense accordingly.Insulin Aspart U-100 (Novolog Flexpen U-100 Insulin) 100 unit/mL (3 mL) Insulin VeiOetzklkbvuif0IKXJYQUWTQ7u/Day with meals Protocol: *Carb coverage 1:10*Give 1 unit of rapid-acting insulin for every 10 gm of carbohydrates eaten at nltwz88Crmnnnuw 2023 12:00amApril 2023 1:44pm On Hold: medication in twice Please contact the information source for Protocol details.Insulin Glargine (Lantus Solostar U-100 Insulin) 100 unit/mL (3 mL) Insulin NujNacmcgswicaj88UCYO ZVPWLHYzxfs59Ibvuubhe 2023 12:00amApril 2023 1:43pmOn Hold: medication in twiceInsulin Aspart U-100 (Novolog Flexpen U-100 Insulin) 100 unit/mL (3 mL) Insulin EdvXhiwoc7PAZONCDTIL3Y/Day with meals and bedtime Protocol: *If the [...] 400 mg/dl Dose/Route: 9 unit Instructions: Call Fswkfgvw84Uhlvmlae2023 12:00amPlease contact the information source for Protocol details.UnknownFurosemide 20 mg tablet Izwqdnokdfvm20GCSGYknkc as needed for as mjlwwkwsyb6292Bdqapvne 2023 10:53amApril 2023 7:40amValsartan 160 mg TkddcpGrumifqghsev65ZXXAHvuox4939 0February 2023 10:53amApril 2023 1:46pmMetronidazole 500 mg Tablet Xlnwrzpuartb139XJJBJxqqq times phzya62368Svelqjja 2023 12:00amApril 2023 7:41amBismuth Subsalicylate (Stomach Relief) 262 mg/15 mL Suspension Iwhettyyknrl809BLMNQogo times mjhaq139.521955LmggfmozSeptember 05, 2023 12:00amApril 2023 7:40amTetracycline 250 mg KfmzvwhTklnhryxxpfy847WZMPTuaw times daily 607996Hrnfrybx 2023 12:00amApril 2023 7:42amBlood Sugar Diagnostic idtvhJrdfqf9264Edswrplv 25th, 2024 12:00amDiabetes mellitus Type 2 diabetes mellitus without complicationsFingerstick blood sugar ACHS Lancets asotRkpqts4300Pfrmbzar2023 12:00amDiabetes mellitus Type 2 diabetes mellitus without complicationsFingerstick blood sugar ACHSPen Needle, Diabetic (Bd Ultra-Fine Marichuy Pen Needle) 32 gauge x 5/32 needleActive 1002023 12:00amDiabetes mellitus Type 2 diabetes mellitus without complicationsSliding scale, carb coverage, long acting insulinTetracycline 500 mg yfeqeikObmjlcpgcaiz675LPOWJccr times ycckp9297 September 06, 2023 12:00amApril 2023 7:42amLisinopril 2.5 mg tablet Discontinued2.5MGPOEvery 2023 12:00amSeptember 2024 8:44amOmeprazole 20 mg capsule,delayed release(DR/EC)Iqytuqnovlhr30EGFHVinfq dailyMay 16, 2024 12:00amFebruary 2024 10:10amSacubitril-Valsartan (Entresto) 24-26 mg fyqzhwBkdtvgemlsiy2RUIYQZgmvv dailyMay 16, 2024 12:00amDeencompass [facility] 2023 6:21pmSpironolactone 25 mg bufunyLuiuwpdripiw23.5MGPO Every morningMay 16, 2024 12:00amDece2023 6:21pmTamsulosin 0.4 mg CapsuleDiscontinued0.4MGPOEvery eveningMay 16, 2024 12:00amFebruary 2024 10:09amMetoprolol Succinate 25 mg tablet extended release 24 hr Ivohxfdjbjdu01.5MGPOTwice dailyMay 16, 2024 12:00amNovember 2023 9:49amMetoprolol Succinate 50 mg Tablet Extended Release 24 HoQekzfkrbctwq16CAPL Twice lhpmu58564VknwhvmoMay 25, 2024 12:00amJanuary 2024 7:14pmCephalexin 500 mg bdcorseJwvhlffsbsju596FHYMHhrxl dboug5619Dwddhfjg 8th, 2024 12:00am June 21, 2024 10:05yxWeqeph-Nwwjsfpq-Zcqxtlh (Pork) (Creon) 24,000-76,000 -120,000 unit capsule,delayed release(DR/EC)Drmroyikiooe0HOEOWWmhwy times daily April 27, 2023 11:00pmOctmcdowell [facility] hospital 2022 1:27pmTamsulosin 0.4 mg capsule Discontinued0.4MGPODailyOct2022 11:00pmOctmcdowell arh hospital 2022 1:27pm Paroxetine Hcl 30 mg nkaiudZajczgkpkyrm89HUJOBmrwaPdodiuz 17th, 2023 11:00pm May 07, 2023 1:27pmInsulin Glargine (Lantus Solostar U-100 Insulin) 100 unit/mL (3 mL) insulin cibEcfhixvhtjmq21SECZMRCSFUZhsakerDfmzuuz 17th, 2023 11:00pmOctmcdowell arh hospital 2022 4:10pmInsulin Aspart U-100 (Novolog Flexpen U-100 Insulin) 100 unit/mL (3 mL) insulin lfsCmauatemmrcp1TGBLHTVDTOyfyx daily before dinnerApril 27, 2023 11:00pmOctmcdowell arh hospital 2022 4:10pmInsulin Aspart U-100 (Novolog Flexpen U-100 Insulin) 100 unit/mL (3 mL) insulin vndQzbrptfofyvy7QQPT SUBCUTAfter breakfast and lunchOct2022 11:00pmOctmcdowell arh hospital 2022 4:10pmLidocaine Hcl (Xylocaine) 10 mg/mL (1 %) SolutionDiscontinued0.1ML INTRADERMAPre-Op as needed for Venipuncture x 1 Yxzc37Lwczedt2022 11:00pm May 03, 2023 4:10pmAtorvastatin 80 mg CirxwvFqqyanxtxxtu55DAVKYcsgc mibyjbb77Nvhydmb2022 11:00pmMay 07, 2023 1:27pmSennosides (Senna Laxative) 8.6 mg TrwuqnRcdlzxdboamn8EGDYVFnrbhai as needed for kwpcodlogzqc94 May 02, 2023 11:00pmMay 03, 2023 4:10pmAcetaminophen (Tylenol) 325 mg VumuwfTgpfwexkjujf634DYBJW9G as needed for Pain Scale 1 - 3 or lnlqo95Voqzfrj2022 11:00pmMay 03, 2023 4:10pmHydrocodone-Acetaminophen 5-325 mg TabletDiscontinued1 - 1RRLIMV1K as needed for Ebtm44Bqxgdmw2022Oct2022 4:09pmValsartan 80 mg BtpbaoGaumxnoomygv19FLSTWvfvf09Pocwwsi 22nd, 2023 11:00pmMay 07, 2023 1:27pmAspirin 81 mg Tablet,Delayed Release (Dr/Ec)Kvsgafrupwuk97VXAWOtngx67Dhectep 22nd, 2023 11:00pmMay 07, 2023 1:27pmAcetaminophen 500 mg PmwxjwKylvvfuxolyv291ROCQL4I64Nqfbbdn 22nd, 2023 11:00pmMay 07, 2023 1:27pmTriamcinolone Acetonide 0.1 % CreamDiscontinued1 APPLICTOPICALFour times daily as needed for Mesfivejdp60Brevmrn2022 11:00pmMay 07, 2023 1:27pmPotassium Chloride (Klor-Con M20) 20 mEq Tablet,Er Particles/JxtwlquyWdhqujwossbj81TEBQHECAF as needed for Ygaqsynfnuj03 May 02, 2023 11:002022 4:10pmMagnesium Hydroxide (Milk Of Magnesia) 400 mg/5 mL YdfahnnqtxCobpnlqkdxtc29JIBXRfort daily as needed for Ikkwmeouipkd98Hhpfhaq 22nd, 2023 11:00pmMay 07, 2023 1:27pmAscorbic Acid (Vitamin C) (Vitamin C) 500 mg UfdsxuZxjmwetgkfuc575SUFYNsoxq71Jstczxn 22nd, 2023 11:00pmMay 07, 2023 1:27pmBisacodyl 10 mg PzoymvaxafyBctwbncjbgti86WK PRDaily as needed for Ofiubgwgupnh61Kjnfaey 22nd, 2023 11:00pmMay 03, 2023 4:10pmNitroglycerin 0.4 mg Tablet, SublingualDiscontinued0.3PPZBDGCOUJSBU3O as needed for Chest Mgqf39Pknmfyi2022 11:00pmMay 07, 2023 1:27pm Bisacodyl 5 mg Tablet,Delayed Release (Dr/Ec)Amibkhicjike26SELTBciqy as needed for Hkmsmqahjiho42Sxtdake 22nd, 2023 11:00pmMay 03, 2023 4:10pmAlum-Mag Hydroxide-Simeth (Mag-Al Plus) 200-200-20 mg/5 mL VggluqzndnQasqhdcnspht57FZCO Q4H as needed for Epigastric distress (Non-Card)2022 11:00pm May 03, 2023 4:10pmEnoxaparin (Lovenox) 40 mg/0.4 mL WattrheRpxihspchsvt81 MGSUBCUTDAILY@86360591TkyootmMay 02, 2023 11:00pmMay 07, 2023 1:27pmInsulin Aspart U-100 (Novolog Flexpen U-100 Insulin) 100 unit/mL (3 mL) Insulin Pen Hgqmmfvvgwqw1HYMHJKNFVHT6S/Day with meals and lcbcbwm62Ldyowxz2022 11:00pmMay 03, 2023 4:10pmInsulin Aspart U-100 (Novolog Flexpen U-100 Insulin) 100 unit/mL (3 mL) Insulin ImeJscnblrazobk4MXDQSWJNOMW0j/Day with meals Protocol: *CARB COVERAGE 1:10*GIVE 1 UNIT OF ASPART FOR EVERY 10 GM CHO EATEN AT MEALSMay 02, 2023 11:00pmMay 03, 2023 4:09pmPlease contact the information source for Protocol details.Calcium Carbonate-Vitamin D3 (Oyster Shell Calcium-Vit D3) 500 mg-5 mcg (200 unit) RzwbotKbxmgdzqbcus1ZGKGW2y/Day with gudce34Kpxiduo 2022 11:00pmOctober 2022 1:27pmInsulin Glargine (Lantus Solostar U-100 Insulin) 100 unit/mL (3 mL) Insulin LhkDzshbbbduipr8YDKSY SUBCUTTwice fopnm58DordktyMay 02, 2023 11:00pmOctober 2022 1:27pm Hydrocodone-Acetaminophen 5-325 mg lyazhzNzitiwwdozyo7IYZWOA4Z as needed for PainOctober 2022 4:09pmOctober 2022 1:27pmInsulin Aspart U-100 (Novolog Flexpen U-100 Insulin) 100 unit/mL (3 mL) insulin kqbTlypzgiwhdiw2nhweu SUBCUTBefore meals and at bedtime Protocol: If [...] source for Protocol details.Atorvastatin 80 mg Tablet Ykqyqvfivmtm37EIOCBqjox dxotbzi80057Cugfuih 26th, 2023 11:00pmApril 2023 1:45pmHydrocodone-Acetaminophen 5-325 mg GqkgpxPmpkwqichpfs8LBLTSP0Y as needed for Uglx2615Nqdujcf 2022February 2023 3:51pmAcute postoperative pain of hip Closed intertrochanteric fracture of right femur Other acute postprocedural pain Pain in unspecified hipAspirin 81 mg Tablet,Delayed Release (Dr/Ec)Xpdwze10CQAF Ozuwe89295Rcvpiuz 26th, 2023 11:00pmUnknownAcetaminophen 500 mg Tablet Fggsbhexdbms561TTMUVjfsx 6 lezcd637ZxsyeihMay 06, 2023 11:00pmFebruary 2023 2:53pmAscorbic Acid (Vitamin C) (Vitamin C) 500 mg VzsogpUnlvadcmjdze770HQAF Fvdkn152LkqnemqMay 06, 2023 11:00pmFebruary 2023 2:28pmInsulin Aspart U-100 (Novolog Flexpen U-100 Insulin) 100 unit/mL (3 mL) Insulin PenDiscontinued1 sliding scale doseSUBCUTBefore meals and at viwoevo07167Jwsqpsf 26th, 2023 11:00pmFebruary 2023 2:28pmCalcium Carbonate-Vitamin D3 (Oyster Shell Calcium-Vit D3) 500 mg-5 mcg (200 unit) XtdvasSpipadtqzznr7XWHSU7q/Day with ioxtz61049OmluzqoMay 06, 2023 11:00pmFebruary 2023 3:56pmNitroglycerin 0.4 mg Tablet, SublingualActive0.2YJRCUHUBEEWDI6A as needed for Chest Kbjg05547 May 06, 2023 11:00pmUnknownInsulin Glargine (Lantus Solostar U-100 Insulin) 100 unit/mL (3 mL) Insulin XwcFieiujskxssq5DGZOIAUOZAANyljt daily4.2300 May 06, 2023 11:00pmFebruary 2023 3:70ssLfjuel-Ibhqnfwb-Hprqcqi (Pork) (Creon) 24,000-76,000 -120,000 unit Capsule,Delayed Release(Dr/Ec)Active2 TAUJI3v/Day with pxmyb791484Oioebuq 26th, 2023 11:00pmUnknownTriamcinolone Acetonide 0.1 % UlwlfPriqstomyxzf2NMFWJEKNRDOEIDuya times daily as needed for Msfgbvjciw518Khexbvp 26th, 2023 11:00pmApril 2023 9:38amTamsulosin 0.4 mg CapsuleDiscontinued0.1RDECYroxy50290Zrwcvvc 26th, 2023 11:00pmNovember 2023 12:54pmParoxetine Hcl 30 mg EwkuhwTiykrfwmwckp06VUTMMicna67702Mqtlcte 2022 11:00pmAugust 2023 9:09amValsartan 160 mg LnvpjxDbhaauairisq089CXZVOwspk70 300October 2022 11:00pmFebruary 2023 2:28pmInsulin Aspart U-100 (Novolog Flexpen U-100 Insulin) 100 unit/mL (3 mL) Insulin QtsWffuhtrhpbph1FTAOS QOLYSG8l/Day with meals Protocol: *Carb coverage 1:10*Give 1 unit of rapid-acting insulin for every 10 gm of carbohydrates eaten at rocof53Pyyrmnb2022 11:00pmFebruary 2023 2:28pmPlease contact the information source for Protocol details.Cyclobenzaprine 5 mg MwxfspUsqbrjexqhxf5OPIZT1W as needed for Muscle Jdwmp69035Vabqtfb 26th, 2023 11:00pmFebruary 2023 3:51pmFerrous Sulfate 324 mg (65 mg iron) Tablet,Delayed Release (Dr/Ec)Kptymomrrpji915DOOKPxxbj59550Rolhnvd 2022 11:00pmFebruary 2023 3:51pmTicagrelor (Brilinta) 90 mg tabletDiscontinued 90MGPOTwice xgfri2731Whcdhjp2023 12:00amFebruary 2023 2:28pm Nitroglycerin 0.4 mg tablet, sublingualDiscontinued0.1ZUMMSROMPQHBT1O as needed for chest lmev363Gtizszh2023 12:00amFebruary 2023 2:28pmuntil response; do not exceed 3 doses per eventPantoprazole (Protonix) 40 mg tablet,delayed release (DR/EC)Fxqmcgzyhdac83NNXYTevdb692662Mlv 2023 12:22pm February 08, 2024 12:25pm40 mg p.o. twice daily x 2 weeks, followed by 40 mg p.o. daily. Please dispense accordingly.Metoprolol Succinate (Toprol Xl) 25 mg tablet extended release 24 vnVyywtreupybj30.5MGPOTwice dailyJuly 2023 11:00pm February 15, 2024 9:58amSpironolactone (Aldactone) 25 mg ypvppxRcdjhfjzsvoa35MRPC Every morningJuly 2023 11:00pmAugust 2023 9:09am Auyfvn-Wyzfohhe-Uoowvmh (Pork) (Creon) 24,000-76,000 -120,000 unit capsule,delayed release(DR/EC)Eotktgtpsjed8WCUFKLwphx times daily as needed for gastrointestinal spasms or crampingJuly 2023 11:00pmFebruary 2024 10:08amadminister one cap with snacksSucralfate 1 gram SuezbuUzurhahgjflp6NZTN Every 6 xkmnl638689Hikx 2023 11:00pmOctober 2023 9:28am Spironolactone 25 mg ZntknxDmltvoehyfrt78PVKXOasun10456Ejyq 2023 11:00pm March 27, 2024 10:44amSacubitril-Valsartan (Entresto) 24-26 mg Tablet Azqufnvqnnfr3LVVYCDafjz yzbge696246Iixi 2023 11:00pmSeptember 2023 10:05amOn Hold: hypotensionPantoprazole (Protonix) 40 mg tablet,delayed release (DR/EC)Immerbbkvngw07CGGZCukvw qasej344761Poit 2023 12:22pmNovember 2023 12:54pm40 mg p.o. twice daily x 2 weeks, followed by 40 mg p.o. daily. Please dispense accordingly.Pantoprazole (Protonix) [address] for susp in mrxhgoZtepieksfugp39YRGSRdnxq gwllu055196Nfto 2023 11:00pmAugust 2023 9:08amCephalexin 500 mg fervvafUklzvsxgwsxv721WQUNSvnbz times iayzm2170 June 21, 2024 10:28amJanuary 2024 7:10pmSpironolactone 25 mg tablet Quuqsxjujmsa00EIWASycsmKfhpiex 5th, 2025 12:00amFebruary 2024 10:09am Metoprolol Succinate 25 mg tablet extended release 24 fnEzqaugckbbhl99.5MGPO Twice dailyJan2024 12:00amMarch 2024 8:20amInsulin Glargine (Lantus Solostar U-100 Insulin) 100 unit/mL (3 mL) Insulin PleUlfuvt8RCNVOZAWWU Daily at bedtime0.5100January 2024 12:00amUnknownFurosemide 20 mg Tablet Bhzlfhodseau31EAFQOtxhj at 0078840Zriyggr 2024 12:00amJanuary 2024 11:47amParoxetine Hcl 40 mg pmhtspIaughh26EWLOQwjqy morningAugust 2023 11:00pmUnknownFurosemide (Lasix) 20 mg apxingBtnbvtjefuas85EMJCLatobWibkga 2023 11:00pmAugust 2023 9:58amMetoprolol Succinate 25 mg tablet extended release 24 wzMofhcvxprjtx12.2KRYVBnpxx24520Vpqknn 2023 11:00pmNovember 2023 12:54pmSpironolactone 25 mg mfprfaWjvlgmklkjdo81.9ECNKCjsvn07821Vlvbokkxt 2023 11:00pmNovember 2023 12:54pmLisinopril 2.5 mg tabletDiscontinued 2.1QTYQWkgnm55980Wqtvbocya 2023 11:00pmOctober 2023 12:21pm Empagliflozin (Jardiance) 10 mg ervcpdTqjtjliiimtl30TLDYRttef89004Npamobcah 2023 11:00pmNovember 2023 12:44pmAtorvastatin (Lipitor) 40 mg tablet Cvomyv43NSSNWodzj at krofnyw51703Iowqjnfqq 15th, 2025 11:00pmUnknownMetoprolol Succinate 25 mg tablet extended release 24 bcPsubtm27.5MGPODaily at emozfwv50217 [place] 2024 11:00pmUnknownLoratadine (Claritin) 10 mg tablet Rnvzvbcrjbrc6UJPPOUokhzGetms 2023 11:00pmFebruary 2024 10:10am FreeTextSi tablet Orally Once a day; Note: Source Status: Taking; Provider: Houston Maradiaga ( )Cholecalciferol (Vitamin D3) 125 mcg/0.5 mL (5K unit/0.5mL) afxwrZqsyzt913SAKNBEvfmwHpzrx 2023 11:00pmUnknownLutein 6 mg mxkyydtAzbqfq6BNQVNalhoKrerm 2023 11:00pmgive with meal/snackUnknown Multivit With Min-Folic Acid (Centrum Adults) 12 mcg tablet,ggpglbedUyeeie8MYZAG DailyApril 2023 11:00pmUnknownValsartan 80 mg rllwtwLirdetogcgjc66ZXRW Fmqqs20573Kpxhj 2023 11:00pmJuly 2023 12:25pmAtorvastatin 80 mg xuhevzMsxztvubfpqb48AVUASvmho at bxadyrr41469Tetbb 2023 11:00pmAugust 2023 7:12amDapagliflozin Propanediol (Farxiga) 10 mg sfjckiIldxuxbdbayp40 MGPODailyFebruary 2024 12:00amSeptember 2024 8:44amLactobacillus Combination No.4 (Probiotic) 3 billion cell ubfmfbvBthubj7590LTX CELLSPODaily August 31, 2024 12:00amadminister with a mealUnknownSpironolactone 25 mg glsgriAwxchtryqqpo17.0ZUKINsctb37451Kdvimqyb 2024 12:00amApril 2024 8:58amSpironolactone 25 mg cnxaovUfcfwvkzxylz54AWHMUtrkq92174Riots 2024 11:00pmJuly 2024 7:09amTamsulosin (Flomax) 0.4 mg capsuleActive0.4MGPO DailyOctober 2024 11:00pmUnknown Immunizations Immunization Event Date Not Given Reason Dose Number Education Courses Sales Representative Lot Number Reason(s) Given Vaccine Information Statement (VIS) Detail Administration Location COVID-19 mRNA-1273 (Moderna) July 25, 2020 COVID-19 mRNA-1273 (Moderna)August 22OVID- mRNA Bivalent Booster (Pfizer)May 26OVID-19 (PFIZER) 12Y and olderNovember 2022 Medical Equipment Device Date Implanted Device Details CL STENT BLANCA FRONTIER 3.5 X 18 July 16 Orthopaedic bone screw, non-bioabsorbable, non-sterileOctober 2022UDI: ()[id number] Issuing Agency: [facility] Device Id: [id number] nail, sterileOctober 2022UDI: ()[id number] Issuing Agency: [facility] Device Id: [id number] Expiration Date: 2032-10-09 Lot Number: [id number] bladeOctober 2022UDI: ()[id number] Issuing Agency: [facility] Device Id: [id number] Expiration Date: 2032-05-11 Lot Number: [id number] defibrillation leadNovember 2023UDI: ()[id number] Issuing Agency: [facility] Device Id: [id number] Expiration Date: 2027-02-08 Serial Number: [id number]-ulccvdp implantable defibrillatorNovember 2023UDI: ()[id number] Issuing Agency: [facility] Device Id: [id number] Expiration Date: 2026-03-11 Serial Number: [id number]/interventricular septal pacing leadNovember 2023UDI: ()[id number] Issuing Agency: [facility] Device Id: [id number] Expiration Date: 2027-04-10 Serial Number: [id number] Procedures Procedure Date Performed Status Urine Culture June 20, 2025 active Vital Signs Vital Reading Result Reference Range Collection Date/Time Height 70 [in_i] March 27, 2025 9:83xwWtbypn94.68 kgSeptember 2024 9:08amHeart Rate80 /olp93-980Gleupuxti 2024 9:08amRespiratory rate18 /xlh37-21Wfcydxgzt 2024 9:08amOxygen saturation by Pulse avstnjly74 %95-100Sept2024 9:08amBP Aybmnqho588 mm[Hg]100-140[facility]2024 9:08amBP Pgkemdrlb70 mm[Hg]60-100Sept2024 9:08amBMI (Body Mass Index)19.5 kg/h0Wypfbacox 2024 9:46tuHgyghu90 [in_i]May 09, 2025 9:72ajIrecyd72.68 [facility]Former[facility] 2024 9:24amRespiratory rate18 /kjy51-25Kydfcgv 2024 9:24amBP Krawoeit485 mm[Hg]100-140[facility] 2024 9:24amBP Vjvcaiahh10 mm[Hg]60-100 May 09, 2025 9:24amBMI (Body Mass Index)18.9 kg/n9Pdyhrmw 2024 9:24am Advance Directives Advance Directive Response Recorded Date/ Time Advance Directives No March 4:30pm Insurance Providers Guarantor Manolo Khoi Roche Address [address] [address]Fccfbza Info.Home Phone: Payer Group Member ID Coverage Type Subscriber Relationship to Subscriber Effective Date Expiration Date Medicare [id number] J Sberna Id: [id number] [address] [address] Home Phone: Email: [email or web address] Part A [id number] J Sberna Id: [id number] [address] [address] Home Phone: Email: [email or web address] Encounter Location(s) Arrival/Admit Date Discharge/Departure Date Discharge/Departure Disposition Provider(s) Departed Physician/ Provider Office Visit -[facility] March 27, 2025 9:54am March 27, 2025 10:59am Discharged to home care or self care (routine discharge) Anat Perez MD Departed Physician/ Provider Office Visit -[facility] May 09, 2025 10:11am May 09, 2025 11:01am Discharged to home care or self care (routine discharge) Anat Perez MD Non-patient / Non-visit -[facility] June 11, 2025 1:48pm Mikel Smitheparted [facility] 1:46pmDischarged to home care or self care (routine discharge)Viji Whittington DO Recent Diagnosis Onset Date Admit Date Ischemic cardiomyopathy Unknown 2024 9:54am Type 1 diabetes mellitus Unknown 2024 9:54am Acute GI bleeding Unknown March 9:54am Coronary artery disease invo lving [place] coronary artery of [place] heart [place] Unknown March 27 9:54am Hypertension [...] 09 10:11am Coronary artery disease invo lving [place] coronary artery of [place] heart [place] Unknown May 09, 2025 10:11am Hypertension Unknown May 09 10:11am S/P PTCA (percutaneous trans luminal coronary angioplasty) Unknown May 09, 2025 10:11am Assessments Diagnosis Onset Date Resolution Status Admit Date Ischemic cardiomyopathy acuteSept2024 9:54amType 1 diabetes mellitusacuteSept2024 9:54amAcute GI bleedingresolvedSept2024 9:54amCoronary artery disease involving [place] coronary artery of [place] heart wiinactiveSeptember 2024 9:54amHypertensioninactiveSeptember 2024 9:54amS/P PTCA (percutaneous transluminal coronary angioplasty)inactiveSept2024 9:54amH pylori ulceracuteOctober 2024 10:11amIron deficiencyacuteOctober 2024 10:11amIschemic cardiomyopathyacuteOctober 2024 10:11amType 1 diabetes mellitusacuteOctober 2024 10:11amAcute GI bleedingresolvedOctober 2024 10:11amNon-ST elevation myocardial infarction (NSTEMI), subendocardial infarction,resolvedOctober 2024 10:11amCoronary artery disease involving [place] coronary artery of [place] heart wiinactiveOctober 2024 10:11amHypertensioninactiveOctober 2024 10:11amS/P PTCA (percutaneous transluminal coronary angioplasty)inactiveOctober 2024 10:11am Plan of Treatment Author Anat Perez [facility] CenterAuthoredSeptember 2024 11:27amAssessment: # CAD s/p PCI in Jul 2023. # Ischemic Cardiomyopathy s/p Sweet dual chamber ICD in May [address] Root. 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 Current smoker. [facility] 04/30/23 - Two-vessel coronary artery disease- 100% prox LAD occlusion; 80% D1; LCx has 50% prox stenosis with 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 Echo 04/28/23 - EF 40-45%, mild LVH, trace MR and TR. 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 EKG 09/07/23 - sinus peace 56 bpm, anterolateral TWI. EKG 09/08/23 - sinus peace 58 bpm, anterolateral and inferior TWI. ECHO in January 2024 at [facility]: EF 30-35% ECHO 03/09/2024: ECHO which showed [...] - Will refer to cardiac rehab in [place] for HFrEF given deconditioning - Advised to [...] weeks in CHF clinic. Author Anat Perez [facility] HospitalredFormerly [facility] 2024 11:47amAssessment: # CAD s/p PCI in Jul 2023 # Ischemic Cardiomyopathy s/p Sweet dual chamber ICD in May [address] Root. 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 Current smoker. [facility] 04/30/23 - Two-vessel coronary artery disease- 100% prox LAD occlusion; 80% D1; LCx has 50% prox stenosis with 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 Echo 04/28/23 - EF 40-45%, mild LVH, trace MR and TR. 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 EKG 09/07/23 - sinus peace 56 bpm, anterolateral TWI. EKG 09/08/23 - sinus peace 58 bpm, anterolateral and inferior TWI. [facility]% ECHO 03/09/2024: ECHO which showed [...] records of his recent Hospitalization at [facility] in [place] 04/2025. - GDMT: Continue Toprol 12.5mg QHS. - Recent labs reviewed. Improved Creatinine from 2.4--->1.3 after holding lisinopril, spironolactone and Farxiga. - Will get ECHO to evaluate LV function - CAD: Continue aspirin 81 mg daily, Lipitor 40mg QHS - [facility] reports that cardiac rehab starts tomorrow in [place] for HFrEF given deconditioning - Continue routine follow up with Dr. Castro's team and Endocrinology. - He will be following up with Dr. Melchor (Urology) given recent Kimble in place with retention while at [facility]. He was with complaints of burning around site today, he will call Dr. Melchor to let them know this. - Following with Device Clinic every 3 months. Recent device interrogation shows normal function. - Follow up in 8 weeks in CHF clinic. Future Tests Future scheduled test information is unavailable Pending Tests Test Name Ordered Date Scheduled Date Urine Culture June 20, 2025 1:45pm [facility] echo transthoracicSeptember 2024 9:50am Future Visits Future appointment information is unavailable Future Procedures Procedure Name Ordered Date Scheduled Date Urine Culture June 20, 2025 9:24pm Decem 2024 1:45pm Future Medications Future medication information is unavailable Patient Instructions Patient instructions are unavailable
[2025-06-20] MEDS: PIPERACILLIN SODIUM/TAZOBACTAM 3.375 GM in 0.9 % SODIUM CHLORIDE 50 ML IV (23:03)
[2025-06-20] MEDS: HEPARIN SODIUM (PORCINE) 5,000 UNIT/ML VIAL 5000 UNIT SUBQ (23:03)
[2025-06-20] MEDS: ATORVASTATIN CALCIUM 40 MG TABLET PO (23:03)
[2025-06-20] MEDS: INSULIN ASPART 300 UNIT/3 ML PEN SUBQ (23:04)
[2025-06-20] MEDS: METOPROLOL SUCCINATE 25 MG TAB.ER.24H 12.5 MG PO (23:06)
[2025-06-21] VITALS (23 sets, daily range): BP systolic 116–136; BP diastolic 49–71; PULSE 58–77; TEMP 36.3–36.9; O2SAT 92–93; BMI 18.7
[2025-06-21] MEDS: 0.9 % SODIUM CHLORIDE 1,000 ML 125 ML IV ×3 (00:34→18:47)
[2025-06-21] MEDS: INSULIN GLARGINE 300 UNIT/3 ML INSULN.PEN 15 UNIT SQ ×2 (01:20→21:25)
[2025-06-21 04:51] LABS: A. calcoaceticus-baumannii Cpx NOT DETECTED (NOT DETECTE); Bacteroides fragilis NOT DETECTED (NOT DETECTE); Candida auris NOT DETECTED (NOT DETECTE); Candida glabrata NOT DETECTED (NOT DETECTE); Enterobacterales NOT DETECTED (NOT DETECTE); Enterococcus faecalis NOT DETECTED (NOT DETECTE); Enterococcus faecium NOT DETECTED (NOT DETECTE); Klebsiella aerogenes NOT DETECTED (NOT DETECTE); Klebsiella pneumoniae group NOT DETECTED (NOT DETECTE); Proteus spp. NOT DETECTED (NOT DETECTE); Salmonella spp. NOT DETECTED (NOT DETECTE); Serratia marcescens NOT DETECTED (NOT DETECTE); Source BLOOD; Staphylococcus epidermidis NOT DETECTED (NOT DETECTE); Staphylococcus lugdunensis NOT DETECTED (NOT DETECTE); Stenotrophomonas maltophilia NOT DETECTED (NOT DETECTE); Streptococcus pyogenes NOT DETECTED (NOT DETECTE); Streptococcus spp. NOT DETECTED (NOT DETECTE)
[2025-06-21 05:34] LABS: Hematocrit 24.0 % (42.0-54.0); Hemoglobin 8.2 g/dL (14.0-18.0); Immature Granulocytes Abs Auto 0.08 10^3/uL (0.00-0.03); Immature Granulocytes Pct Auto 0.5 % (0.0-0.5); Lymphocytes Absolute Auto 0.6 10^3/uL (1.2-3.8); Mean Corpuscular HGB Conc 34.2 g/dL (29.9-35.2); Mean Corpuscular Hemoglobin 27.1 pg (25.9-34.0); Mean Corpuscular Volume 79.2 fL (80.0-94.0); Platelet Count 269 10^3/uL (150-450); Red Blood Count 3.03 10^6/uL (4.70-6.10); White Blood Count 15.1 10^3/uL (4.0-11.0)
[2025-06-21] MEDS: PIPERACILLIN SODIUM/TAZOBACTAM 3.375 GM in 0.9 % SODIUM CHLORIDE 50 ML IV ×3 (06:05→21:24)
[2025-06-21] MEDS: HEPARIN SODIUM (PORCINE) 5,000 UNIT/ML VIAL 5000 UNIT SUBQ ×3 (06:05→21:24)
[2025-06-21] MEDS: PANTOPRAZOLE SODIUM 40 MG VIAL IV (06:05)
[2025-06-21 06:06] LABS: Alanine Aminotransferase 16 U/L (16-63); Albumin Globulin Ratio 0.6; Albumin Level 2.3 g/dL (3.4-5.0); Alkaline Phosphatase 118 U/L (46-116); Anion Gap 13.2; Aspartate Amino Transferase 15 U/L (15-37); Blood Urea Nitrogen 53.0 mg/dL (7.0-18.0); Calcium 8.2 mg/dL (8.5-10.1); Carbon Dioxide 22.9 mmol/L (21.0-32.0); Chloride 99 mmol/L (98-107); Estimated GFR (African America 53 (>=60 mL/min/1.73m^2); Estimated GFR (Non-African Ame 43 (>=60 mL/min/1.73m^2); Globulin 4.0 g/dL; Glucose 301 mg/dL (74-106); Magnesium 1.6 mg/dL (1.8-2.4); Potassium 4.1 mmol/L (3.5-5.1); Sodium 131 mmol/L (136-145); Total Protein 6.3 g/dL (6.4-8.2)
[2025-06-21 06:11] LABS: mecA/C and MREJ (MRSA) NOT DETECTED (NOT DETECTE)
[2025-06-21] MEDS: ACETAMINOPHEN 325 MG TABLET 650 MG PO ×2 (06:11→19:27)
[2025-06-21 06:14] LABS: Staphylococcus spp. DETECTED (NOT DETECTE)
[2025-06-21] MEDS: INSULIN ASPART 300 UNIT/3 ML PEN SUBQ ×3 (07:20→21:24)
[2025-06-21] MEDS: [UNRECOGNIZED DRUG - OTHER] 2 CAP PO ×2 (07:20→16:12)
--- NOTE | 2025-06-21 08:10 | CM.NOTE ---
Important Message From Medicare Discussed with pt, pt verbalizes understanding and signs paper. Original given to pt and copy placed on pt's chart.
[2025-06-21] MEDS: ASPIRIN 81 MG TAB.CHEW PO (08:32)
[2025-06-21] MEDS: TAMSULOSIN HCL 0.4 MG CAPSULE PO (08:32)
[2025-06-21] MEDS: PAROXETINE HCL 20 MG TABLET 40 MG PO (08:33)
--- NOTE | 2025-06-21 08:38 | PC.NURSE ---
Soiled clothes and money clip sent home with .
--- NOTE | 2025-06-21 09:30 | CM.NOTE ---
Rounds made with Dr. Hidalgo, discussed plan of care with pt. Pt is inpatient status, no discharge at this time. PT and OT will evaluate pt for discharge planning.
--- NOTE | 2025-06-21 09:32 | CT_ITS ---
The [address] [address] Patient Name: ASHWINI VICKERS MRN: [id number] date: 1935 Sex: M Assigned Patient Location: [place] Current Patient Location: Accession/Order Number: [id number] Exam Date: 06/21/2025 10:28 Report Date: 06/21/2025 11:36 At the request of: JOCELYN PARRA MD Procedure: CT lumbar spine wo con CT THORACIC AND LUMBAR SPINE WITHOUT CONTRAST WITH 3-D RECONSTRUCTIONS CLINICAL DATA: Recent fall with back pain. COMPARISON: CT abdomen and pelvis and thoracic plain films 06/20/2025, CT abdomen 04/10/2025 Spiral axial unenhanced images were obtained through the thoracic and lumbar spine without contrast. Sagittal, coronal and 3-D volume rendered reconstructions were reviewed. This CT exam was performed using one or more following dose reduction techniques: Automated exposure control, adjustment of the mA and/or kV according to patient size, or use of iterative reconstruction technique. THORACIC: The bony structures are osteopenic. There is mild dextroscoliotic curvature. There are 11 sets of normal ribs. Mild wedge deformity is seen at T5. This was also visualized on the comparison plain films and age is indeterminant. Subtle wedge deformity is also present at T6. No displacement is noted. There are small endplate spurs. There are Schmorl's nodes at the lower thoracic vertebra. There is mild fracture deformity at the posterior aspect of the left eighth and ninth ribs. This is not definitely acute however focal clinical correlation is suggested. Coronary artery disease and aortic plaque are visualized. There are minor parenchymal changes within the gyewl-ni-gzxi which may be atelectasis or possibly scarring. A trace amount of pleural fluid on the left is not excluded. No pneumothorax is seen. LUMBAR: The bony structures are osteopenic. There is levoscoliotic curvature. There is still slight anterolisthesis of L5 on S1. No developing lumbar compression fractures are seen. There is disc space narrowing at L3-4 and L4-5. There are degenerative endplate changes at the inferior aspect of L2 and superior endplate of S1. There is additional endplate spurring. A Schmorl's node is seen at the inferior endplate of T12. Facet disease is also identified, greater distally. The sacrum, SI joints and imaged bony pelvis show no acute bony injury. No paraspinal soft tissue abnormalities are seen. Renal cysts are present. The hydronephrosis on the recent comparison abdominal CT has improved. There is urothelial thickening at the renal pelvis and proximal ureter on the left. There is renovascular disease and also possibly nephrolithiasis. There is atherosclerotic plaque involving an ectatic aorta and iliac arteries. There is sigmoid diverticulosis. The urinary bladder contains a Torres catheter. The bladder wall is thickened. There is prostate hypertrophy with mass effect at the bladder trigone. CT/CT lumbar spine wo con IMPRESSION: OSTEOPENIA, SCOLIOSIS AND DEGENERATIVE CHANGES. SUBTLE WEDGE DEFORMITY INVOLVING MID THORACIC VERTEBRAL BODIES, UNDETERMINED CHRONICITY. NO ACUTE LUMBAR COMPRESSION FRACTURES. LEFT LOWER POSTERIOR RIB DEFORMITIES. THESE ARE NOT DEFINITELY ACUTE HOWEVER CORRELATION IS SUGGESTED TO DETERMINE IF THEY COULD BE ASSOCIATED WITH THE RECENT FALL. MINOR PARENCHYMAL CHANGES AND POSSIBLE TRACE AMOUNT OF LEFT PLEURAL FLUID. RENAL CYSTS AND NEPHROLITHIASIS. IMPROVED BILATERAL HYDRONEPHROSIS FOLLOWING TORRES CATHETER PLACEMENT. THERE IS MILD UROTHELIAL THICKENING ON THE LEFT AND THICKENING OF THE URINARY BLADDER WALL. CORRELATION IS RECOMMENDED TO EXCLUDE ANY POSSIBILITY OF INFECTION. Impression dictated by: Sofia Rosales M.D. 06/21/2025 11:36 AM Dictation Location: [place] [address] Electronically authenticated by: [id number] Y Date: 06/21/2025 11:36
--- NOTE | 2025-06-21 09:32 | CT_ITS ---
The [address] [address] Patient Name: ASHWINI VICKERS MRN: [id number] date: 1935 Sex: M Assigned Patient Location: MS Current Patient Location: Accession/Order Number: [id number] Exam Date: 06/21/2025 10:28 Report Date: 06/21/2025 11:36 At the request of: JOCELYN PARRA MD Procedure: CT lumbar spine wo con CT THORACIC AND LUMBAR SPINE WITHOUT CONTRAST WITH 3-D RECONSTRUCTIONS CLINICAL DATA: Recent fall with back pain. COMPARISON: CT abdomen and pelvis and thoracic plain films 06/20/2025, CT abdomen 04/10/2025 Spiral axial unenhanced images were obtained through the thoracic and lumbar spine without contrast. Sagittal, coronal and 3-D volume rendered reconstructions were reviewed. This CT exam was performed using one or more following dose reduction techniques: Automated exposure control, adjustment of the mA and/or kV according to patient size, or use of iterative reconstruction technique. THORACIC: The bony structures are osteopenic. There is mild dextroscoliotic curvature. There are 11 sets of normal ribs. Mild wedge deformity is seen at T5. This was also visualized on the comparison plain films and age is indeterminant. Subtle wedge deformity is also present at T6. No displacement is noted. There are small endplate spurs. There are Schmorl's nodes at the lower thoracic vertebra. There is mild fracture deformity at the posterior aspect of the left eighth and ninth ribs. This is not definitely acute however focal clinical correlation is suggested. Coronary artery disease and aortic plaque are visualized. There are minor parenchymal changes within the illyv-iv-wjpi which may be atelectasis or possibly scarring. A trace amount of pleural fluid on the left is not excluded. No pneumothorax is seen. LUMBAR: The bony structures are osteopenic. There is levoscoliotic curvature. There is still slight anterolisthesis of L5 on S1. No developing lumbar compression fractures are seen. There is disc space narrowing at L3-4 and L4-5. There are degenerative endplate changes at the inferior aspect of L2 and superior endplate of S1. There is additional endplate spurring. A Schmorl's node is seen at the inferior endplate of T12. Facet disease is also identified, greater distally. The sacrum, SI joints and imaged bony pelvis show no acute bony injury. No paraspinal soft tissue abnormalities are seen. Renal cysts are present. The hydronephrosis on the recent comparison abdominal CT has improved. There is urothelial thickening at the renal pelvis and proximal ureter on the left. There is renovascular disease and also possibly nephrolithiasis. There is atherosclerotic plaque involving an ectatic aorta and iliac arteries. There is sigmoid diverticulosis. The urinary bladder contains a Torres catheter. The bladder wall is thickened. There is prostate hypertrophy with mass effect at the bladder trigone. CT/CT thoracic spine wo con IMPRESSION: OSTEOPENIA, SCOLIOSIS AND DEGENERATIVE CHANGES. SUBTLE WEDGE DEFORMITY INVOLVING MID THORACIC VERTEBRAL BODIES, UNDETERMINED CHRONICITY. NO ACUTE LUMBAR COMPRESSION FRACTURES. LEFT LOWER POSTERIOR RIB DEFORMITIES. THESE ARE NOT DEFINITELY ACUTE HOWEVER CORRELATION IS SUGGESTED TO DETERMINE IF THEY COULD BE ASSOCIATED WITH THE RECENT FALL. MINOR PARENCHYMAL CHANGES AND POSSIBLE TRACE AMOUNT OF LEFT PLEURAL FLUID. RENAL CYSTS AND NEPHROLITHIASIS. IMPROVED BILATERAL HYDRONEPHROSIS FOLLOWING TORRES CATHETER PLACEMENT. THERE IS MILD UROTHELIAL THICKENING ON THE LEFT AND THICKENING OF THE URINARY BLADDER WALL. CORRELATION IS RECOMMENDED TO EXCLUDE ANY POSSIBILITY OF INFECTION. Impression dictated by: Sofia Rosales M.D. 06/21/2025 11:36 AM Dictation Location: [place] [address] Electronically authenticated by: [id number] Y Date: 06/21/2025 11:36
[2025-06-21] MEDS: VANCOMYCIN HCL 1,250 MG in 0.9 % SODIUM CHLORIDE 250 ML 166.667 MG IV (09:42)
--- NOTE | 2025-06-21 10:41 | PM.IMPN1 ---
Progress Note: A&P Assessment and Plan (1) Urinary tract infection: (2) BPH (benign prostatic hyperplasia): (3) Urinary retention: (4) DENISHA (acute kidney injury): Plan (1) Urinary tract infection: (2) BPH (benign prostatic hyperplasia): (3) Urinary retention: (4) DENISHA (acute kidney injury): Plan Complicated UTI in the setting of recent urologic procedure DENISHA on CKD likely in the setting of obstructive uropathy from prostatomegaly Recent fall with low back pain with no alarming features Debility and frailty - Admit patient to medical floor with telemetry - I will cover Pseudomonas so we will start Zosyn IV to be dosed by pharmacy - Follow-up on urine and blood culture - Obtain MRI lumbar spine and MRI thoracic spine without contrast to better delineate the patient's low back pain/fracture - PT/OT evaluation - I reconciled the patient's medication -Urology recommended outpatient follow-up and they are okay with admitting the patient here. I will discharge the patient a Kimble when time comes for discharge - DVT prophylax with HSQ - G I prophylaxis with IV pantoprazole every 24 hours 40 mg - I reconciled the patient's insulin orders to make sure his blood glucose under control -For pain control, I will start with Tylenol 6 and 50 every 6 hours as needed for pain 1-7/10 and IV morphine 1 mg every 4-6 hours for pain more than 7/10 with close monitoring of vitals - CODE STATUS is DNR CCA without intubation. I clarified that with the patient at bedside that in the chart - Discussed the plan with the patient in details. Answered all his question 06/21/2025 his renal function improved to 1.5. After Kimble placement. I will discharge him with Kimble when the time comes for discharge. Continue with IV Zosyn, unfortunately we cannot get an MRI given the patient's pacemaker placed. I ordered CT lumbar spine and CT thoracic brain without contrast to better delineate the anatomy and the spine there. Patient does not have any alarming features in terms of said anesthesia urinary retention or bowel incontinence. No fever no chills overnight. Will continue with IV antibiotics, appreciate PT/OT recommending SNF. Continue with pain management as is. Patient is not on an insulin pump anymore and his insulin subcutaneous orders were adjusted by night team I will keep an eye on his glucose and make adjustments accordingly. Internal Medicine - PN: Subj Subjective Interval history: Patient seen and examined at bedside. Still complaining of low back pain with any sort of movement. No fever no chills. No nausea no vomiting. Hemodynamically stable. Exam Narrative Exam Narrative: General:The patient appears well and in no apparent distress. Patient is resting comfortably on cart. He is ill-appearing. Pleasant and cooperative. Skin:Warm, dry, no pallor noted.There is no rash noted. Head:Normocephalic, atraumatic Neck: Soft, supple, no JVD, no lymphadenopathy, thyroid Eye: Normal conjunctiva, no drainage Ears, Nose, Mouth, and Throat: oral mucosa is moist. Nares patent. Cardiovascular:Regular Rate and Rhythm Respiratory:Patient is in no distress, no accessory muscle use, lungs are clear to auscultation, no wheezing, rales or rhonchi Back: His back is examined there is no bruise rash or abrasion. He has some tenderness in the lumbar spine area more to the right, paraspinal tenderness rather than spine tenderness He does have bilateral passive and active straight leg test. No hyperreflexia. No saddle anesthesia reported by the pain GI: Soft and nontender, no signs of acute abdomen, no Musculoskeletal: The patient has no evidence of calf tenderness, no pitting edema, symmetrical pulses noted bilaterally Neurological:A&O x 3 and following commands, normal speech, no focal deficit but generalized weakness in the bilateral lower extremities likely from pain from his back. Otherwise no cranial nerve deficits. Constitutional Vital Signs, click to edit/add: Last Vital Signs Temp 98.2 F 06/21/25 07:10 Pulse 64 06/21/25 10:00 Resp 20 06/21/25 07:10 BP 128/68 06/21/25 07:10 Pulse Ox 93 L 06/21/25 07:10 O2 Del Method Room Air 06/21/25 07:10 Internal Medicine - PN: Obj Da Labs Labs: Laboratory Results - last 24 hr 06/20/25 06/20/25 06/20/25 13:00 13:45 15:18 WBC 17.5 H RBC 3.36 L Hgb 9.2 L Hct 27.1 L MCV 80.7 MCH 27.4 MCHC 33.9 RDW 14.8 Plt Count 285 MPV 12.3 Neut % (Auto) Lymph % (Auto) [place] % (Auto) Eos % (Auto) Baso % (Auto) Neut # (Auto) Lymph # (Auto) [place] # (Auto) Eos # (Auto) Baso # (Auto) Abs Immat Gran (auto) Seg Neuts % (Manual) 90.0 H Lymphocytes % (Manual) 6.0 L Monocytes % (Manual) 4.0 Eosinophils % (Manual) 0.0 L Basophils % (Manual) 0.0 L Imm/Tot Granulo (auto) Neutrophils # (Manual) 15.75 H Lymphocytes # (Manual) 1.05 L Monocytes # (Manual) 0.70 Eosinophils # (Manual) 0.00 Basophils # (Manual) 0.00 Sodium 130 L Potassium 4.6 Chloride 96 L Carbon Dioxide 22.7 Anion Gap 15.9 BUN 70.0 H Creatinine 1.70 H Est GFR ( Amer) 46 L Est GFR (Non-Af Amer) 38 L BUN/Creatinine Ratio 41.2 Glucose 320 H Estimat Average Glucose Hemoglobin A1c Calcium 8.5 Phosphorus Magnesium Total Bilirubin AST ALT Alkaline Phosphatase Total Protein Albumin Globulin Albumin/Globulin Ratio Urine Color Yellow Urine Clarity Cloudy A Urine pH 6.0 Ur Specific [place] 1.010 Urine Protein Trace Urine Glucose (UA) Negative Urine Ketones Negative Urine Occult Blood Small A Urine Nitrite Negative Urine Bilirubin Negative Urine Urobilinogen 0.2 Ur Leukocyte Esterase Large A Urine RBC 2-5 A Urine WBC >100 A Ur Squamous Epith Cells Rare Urine Crystals None seen Urine Bacteria Large A Urine Casts None seen Urine Mucus None seen Ur Culture Indicated? Yes-[facility] Specimen Source Blood A.calcoaceticus-baumannii cmplx PCR Not detected Bacteroides fragilis Not detected Yi albicans (PCR) Not detected Yi auris (PCR) Not detected C. glabrata (PCR) Not detected C. krusei (PCR) Not detected C. parapsilosis (PCR) Not detected C. tropicalis (PCR) Not detected C. neoform/gattii (PCR) Not detected Enterobacterales (PCR) Not detected E. cloacae complex PCR Not detected Enterococc faecalis PCR Not detected Enterococc faecium PCR Not detected E. coli (PCR) Not detected H. influenzae (PCR) Not detected Klebsiella aerogenes (PCR) Not detected Klebsiella oxytoca PCR Not detected K. pneumoniae group (PCR) Not detected List. monocytogenes PCR Not detected N. meningitidis (PCR) Not detected Proteus spp. (copies/mL) Not detected Salmonella spp. (PCR) Not detected Serratia marcescens PCR Not detected Staphylococcus sp PCR Detected A* Staph aureus (PCR) Detected A* mecA/C & MREJ Resist Gene Not detected mecA/C-Methicil Resis Gene Not applicable mcr-1 Colistin Res Gene PCR Not applicable Staph epidermidis (PCR) Not detected Staph lugdunensis (TEM-PCR) Not detected S. maltophilia (PCR) Not detected Streptococcus sp PCR Not detected Strep agalactiae (PCR) Not detected Strep pneumoniae (PCR) Not detected S. pyogenes (PCR) Not detected P. aeruginosa (PCR) Not detected Ben/B-Vanco Res Genes Not applicable blaIMP Car res Gene PCR Not applicable KPC (blaKPC) Detect PCR Not applicable NDM (blaNDM) Detect PCR Not applicable OXA-48 Carbapenem Resis Gene (PCR) Not applicable blaVIM Car Res Gene PCR Not applicable CTX-M ESBL (PCR) Not applicable 06/20/25 06/21/25 18:13 04:40 WBC 15.1 H RBC 3.03 L Hgb 8.2 L Hct 24.0 L MCV 79.2 L MCH 27.1 MCHC 34.2 RDW 14.5 Plt Count 269 MPV 12.3 Neut % (Auto) 82.7 H Lymph % (Auto) 4.1 L [place] % (Auto) 12.6 H Eos % (Auto) 0.0 L Baso % (Auto) 0.1 L Neut # (Auto) 12.4 H Lymph # (Auto) 0.6 L [place] # (Auto) 1.9 H Eos # (Auto) 0.0 Baso # (Auto) 0.0 Abs Immat Gran (auto) 0.08 H Seg Neuts % (Manual) Lymphocytes % (Manual) Monocytes % (Manual) Eosinophils % (Manual) Basophils % (Manual) Imm/Tot Granulo (auto) 0.5 Neutrophils # (Manual) Lymphocytes # (Manual) Monocytes # (Manual) Eosinophils # (Manual) Basophils # (Manual) Sodium 130 L 131 L Potassium 4.1 4.1 Chloride 97 L 99 Carbon Dioxide 23.0 22.9 Anion Gap 14.1 13.2 BUN 65.0 H 53.0 H Creatinine 1.54 H 1.52 H Est GFR ( Amer) 52 L 53 L Est GFR (Non-Af Amer) 43 L 43 L BUN/Creatinine Ratio 42.2 34.9 Glucose 370 H 301 H Estimat Average Glucose 209 Hemoglobin A1c 8.9 H Calcium 8.4 L 8.2 L Phosphorus 2.9 Magnesium 1.6 L Total Bilirubin 0.4 0.4 AST 17 15 ALT 18 16 Alkaline Phosphatase 116 118 H Total Protein 6.6 6.3 L Albumin 2.5 L 2.3 L Globulin 4.1 4.0 Albumin/Globulin Ratio 0.6 0.6 Urine Color Urine Clarity Urine pH Ur Specific [place] Urine Protein Urine Glucose (UA) Urine Ketones Urine Occult Blood Urine Nitrite Urine Bilirubin Urine Urobilinogen Ur Leukocyte Esterase Urine RBC Urine WBC Ur Squamous Epith Cells Urine Crystals Urine Bacteria Urine Casts Urine Mucus Ur Culture Indicated? Specimen Source A.calcoaceticus-baumannii cmplx PCR Bacteroides fragilis Yi albicans (PCR) Yi auris (PCR) C. glabrata (PCR) C. krusei (PCR) C. parapsilosis (PCR) C. tropicalis (PCR) C. neoform/gattii (PCR) Enterobacterales (PCR) E. cloacae complex PCR Enterococc faecalis PCR Enterococc faecium PCR E. coli (PCR) H. influenzae (PCR) Klebsiella aerogenes (PCR) Klebsiella oxytoca PCR K. pneumoniae group (PCR) List. monocytogenes PCR N. meningitidis (PCR) Proteus spp. (copies/mL) Salmonella spp. (PCR) Serratia marcescens PCR Staphylococcus sp PCR Staph aureus (PCR) mecA/C & MREJ Resist Gene mecA/C-Methicil Resis Gene mcr-1 Colistin Res Gene PCR Staph epidermidis (PCR) Staph lugdunensis (TEM-PCR) S. maltophilia (PCR) Streptococcus sp PCR Strep agalactiae (PCR) Strep pneumoniae (PCR) S. pyogenes (PCR) P. aeruginosa (PCR) Ben/B-Vanco Res Genes blaIMP Car res Gene PCR KPC (blaKPC) Detect PCR NDM (blaNDM) Detect PCR OXA-48 Carbapenem Resis Gene (PCR) blaVIM Car Res Gene PCR CTX-M ESBL (PCR) Urinary Catheter Management Urinary Catheter Management Urethral: Cath placed during this visit: yes Urethral indwelling: Yes Reason for continuing: acute urinary retention Insertion date: 06/20/25 Insertion time: 16:44
--- NOTE | 2025-06-21 11:42 | SWNOTE1 ---
VANE stopped in pt's room to discuss dc needs. SW did review therapy notes and PT/OT did recommend SNF. SW let pt know this and asked if he would be open to returning to rehab again for a short time? Pt is in agreement. He has been at the [facility] in the past, but he is unsure if he wants to return there. SW did let him know there are other facilities in the surrounding area. There are 2 here in [place], [facility] is the other one. SW did provide the star rating list from Medicare.gov and showed pt that both facilities have 5/5 star rating. Pt would like SW to call his . Pt is leaning towards [facility]. VANE called pt's [place]. VANE explained to her that therapy did recommend SNF at this time to get stronger. SW let her know that pt was leaning towards going to [facility]. Pt's in agreement with SNF, but wants him home before [place]. Pt's is alright with either facility. She would like VANE to see who has an opening and then let her know. VANE called Erika at [facility] and they will have a semi-private room open. VANE sent message to Seamus at [facility], waiting to hear back.
[2025-06-21] MEDS: MAGNESIUM SULFATE IN WATER 2 GM/50 ML PREMIX IV (12:10)
--- NOTE | 2025-06-21 12:15 | SWNOTE1 ---
Seamus at [facility] let SW know they would have to review referral and will let SW know if they have a bed open. SW to send referral. Referral sent to [facility]. Referral included face sheet, ED note, H&P, provider notes, case management report, nursing notes, diagnostic imaging, med list, and PT/OT notes.
--- NOTE | 2025-06-21 14:12 | CM.NOTE ---
Juma Hidalgo preliminary result on urine culture.
--- NOTE | 2025-06-21 14:34 | NUTR.NU ---
Recommend boost glucose control 1 container bid po nutritional supplement for additional nutritional support.
--- NOTE | 2025-06-21 14:36 | NUTR.NU ---
Dietary consult completed this date Recommend Boost glucose control 1 container po bid for additional nutritional support
--- OUTSIDE RECORDS SUMMARY | 2025-06-21 16:49 | XMS_ITS | CCD ---
Author Organization [facility] Care Team Providers Care Service Station Attendant Name Role Phone Marie Tejeda Primary Care Provider [phone] DELON CARRION Admitting Unavailable DELON CARRION Attending Unavailable KINGS FRANCIS Consulting Unavailable MARIE TEJEDA Primary Care Unavailable JOSE A, DR FRANCO Primary Care Unavailable KSEHA DOBSON Admitting Unavailable KESHA DOBSON Attending Unavailable [...] Admit Provider DO Sushant Cordon Attending Provider [phone] MD Ashwini Conrad Other Provider MD Chuck Velasco Other Provider MD Anat Perez Other Provider MD Humberto Diaz Attending Provider [phone] MD Tru Yap Other Provider MD Fredi Medrano Admit Provider MD Fredi Medrano Attending Provider KARIN Rios Other Provider Unavailable KARIN Velazquez Other Provider Unavailable Kev RN Gya Other Provider Unavailable David RN Buffy Other Provider Unavailable KARIN Bentley Other Provider Unavailable KARIN Henry Other Provider Unavailable MD Chris Holm Other Provider PAUL ZavalaN Vivian M Other Provider [phone] DO Samantha Wilson Other Provider MD Eric Major Other Provider DO Sushant Cordon Other Provider MD Audi Gaming Other Provider MD Cecily Keen Other Provider [phone] AMADA Wright Other Provider MD Daniel Reyes Other Provider [phone] MD Roberto Sevilla Other Provider MD [...] Berman Other Provider AMADA Pimentel Other Provider [phone] MD Vidya Robert Other Provider MD Howard [...] Pimentel Other Provider [phone] MD Vidya Rboert Other Provider MD Howard Burrell Other Provider [phone] DO Jeevan John Other Provider [phone] AMADA Murdock Other Provider [phone] Vidal, Catherinedontae Other Provider KARIN Morillo Other Provider Unavailable MD Ashwini Conrad Attending Provider PROVIDER, UNKNOWN Attending Unavailable PROVIDER, UNKNOWN Admitting Unavailable MD Chuck Velasco Other Provider DO Federico Davis Attending Provider [phone] MD Herminio Lakhani Attending Provider Anat Perez Unavailable DO Marie Tejeda Primary Care Provider DO Federico Davis Attending Provider MD Herminio Lakhani Attending Provider MD Audi Gaming Admit Provider MD Alberto Shearer Other Provider MD Beka Roland Other Provider MD Tru Yap Other Provider MD Vidya Robert Attending Provider [phone] MD Audi Gaming Attending Provider MARYANN Flores Attending Provider DO Marie Tejeda Primary Care Provider [phone] GOVIND DAVIS Attending Unavailable MARIE TEJEDA Primary [...] Attending Provider MD Paige Luther Emergency Provider [phone] DO Sushant Cordon Admit Provider DO Sushant Cordon Attending Provider MD Manuel Barraza Other Provider DO Warren Gross Attending Provider DO Marie Tejeda Primary Care Provider MD Anat Perez Attending Provider [phone] DO Warern Gross Other Provider MD Anat Perez Referring Provider MD Anat Perez Referring Provider Marie Tejeda DO Primary Care Provider [phone] Marie Tejeda DO Unavailable Chirag OGLESBY, Patrick Unavailable Mitchel OGLESBY, Andrey Caballero Unavailable Saúl Davis MD Unavailable [phone] MD Abdulaziz Root Attending Provider PATRICK BEARD Attending Unavailable MANUEL BARRAZA Referring Unavailable DO Marie Tejeda Primary Care Provider [phone] DO Warren Gross Attending Provider DO Marie Tejeda Primary Care Provider MD Anat Perez Attending Provider MD Anat Perez Referring Provider [phone] MD Abdulaziz Root Attending Provider Marie Tejeda DO Primary Care Provider [phone] Anat Perez MD Attending Provider Anat Perez MD Referring Provider [phone] Abdulaziz Root MD Attending Provider Ivett OGLESBY, Abdulaziz Admit Provider Marie Tejeda DO [place] Primary Care Provider Cally LOAN REVIEW OFFICER, Yuerong Unavailable [phone] Marie Tejeda DO Primary Care Provider [phone] Vargas Reis APRN Emergency Provider Jose Alfredo [...] Attending Provider Lisa Hidalgo MD Attending Provider [phone] Cally YBARRA.LOAN REVIEW OFFICER, Yuerong Unavailable Marie Tejeda DO Primary Care Provider Ileana CURTIS, Marie Primary Care Provider [phone] Bertin Smith DO Emergency Provider Queenie Guillory MD, Indra Morrow Admit Provider Lisa Hidalgo MD Attending Provider Saúl Davis MD Unavailable [phone] Cally LOG MARKER.LOAN REVIEW OFFICER, Brandonng Unavailable Ileana CURTIS, Marie Primary Care Provider [phone] Ana OGLESBY, Anat Other Provider Abdulaziz Root MD Attending Provider Vassunithak, Marie Primary Care Unavailable Stephanie Sheridan Consulting Unavailable Sushant Cordon Attending Unavailabl e Sushant Corodn Admitting Unavailabl Beto Collins Consulting Unavailable Thierno [...] Indra Guillory E Admitting Unavailab le [facility] Unavailable Lisa Hidalgo Attending Unavailable Chela [...] Referring Unavailable YOMI CHONG Attending Unavailable [facility] Unavailab AYANA Dudley Referring Unavailable [facility] Unavailab AYANA Dudley Attending Unavailable [facility] Unavailab AYANA Dudley Referring Unavailable AYANA ZAVALA Attending Unavailable [facility] Unavailab AYANA Dudley Attending Unavailable AYANA ZAVALA Referring Unavailable [facility] Unavailab le CALLY, YUEROARSLAN Referring Unavailable AYANA ZAVALA Attending Unavailable [facility] Unavailab le [facility] Unavailab le [facility] Unavailab le [facility] Unavailab AYANA Dudley Attending Unavailable Chirag [facility], [facility] Un[facility] [phone] Andrey Grullon MD Unavailable [phone] Saúl Davis MD Unavailable Almita Deras DO Unavailable Mely Rollins Attending Unavailable Tristan MELCHOR Attending Unavailable Tristan MELCHOR Attending Unavailable Tristan MELCHOR Referring Unavailable Tristan MELCHOR Attending Unavailable Tristan MELCHOR Attending Unavailable Mely Rollins Attending Unavailable Medications Current Medications MedicationDrug Class(es)DatesSig (Normalized)Sig (Original)[id number] 200 actuat albuterol 0.09 mg/actuat metered dose inhaler (17 sources)beta2-Adrenergic AgonistStart: 07-20-2024 End: 83-99-5067nwwc 2 puff(s) by inhalation every four hours for wheezing albuterol HFA (ProAir HFA) 90 mcg/act inhaler Indications: Bronchitis Inhale 2 puffs every 4 (four)hours if needed for wheezing or shortness of breath 8.5 g 07/20/2024 07/20/2025 ActiveamLODIPine 5 mg oral tablet (2 sources)Dihydropyridine Calcium Channel BlockerStart: 82-82-8280fknv 1 tablet by mouth once dailyamLODIPine (NORVASC) 5 MG tablet Take 1 tablet by mouth daily 30 tablet 3 01/07/2022 ActiveStart: 65-10-1765dacs 1 tablet by mouth once daily amLODIPine (NORVASC) 5 MG tablet Take 1 tablet by mouth daily 30 tablet 3 01/07/2022 ActiveStart: 77-77-7486dmab 5 mg by mouth once daily5 mg, Oral, DAILY, First dose on 01/04/22 at 1500, Until Discontinuedamylase 452780 unt / lipase 44793 unt / protease 41827 unt delayed release oral capsule (20 sources)Start: 32-17-8050Hprmx 24,000 units oral delayed release capsule Refills(s) 0 Start Date: 04/25/25 Status: Ordered Medication Dispense Status: Completed Total Allowed Fills: 1 Fills Dispensed: 0Start: 04-09-2025 End: 02-67-5701iwbigqhrwzrm, Dgd-Aweo-Txul, (Creon) 96489-69065 units capsule Indications: Pancreatic insufficiency (HCC) TAKE 2 CAPSULES BY MOUTH DAILY WITH MEALS AND 1 WITH 2 SNACKS DAILY DIRECTED 250 capsule 05/02/2025 ActiveStart: 77-71-8931yeixkiwqfmns, Rkm-Dhap-Eisi, (Creon) 93983-10577 units capsule Indications: Pancreatic insufficiency (HCC) TAKE 2 CAPSULES BY MOUTH DAILY WITH MEALS AND 1 WITH 2 SNACKS DAILY DIRECTED 250 capsule 03/05/2025 ActiveStart: 58-03-9647nqcslisdlovz, Ttp-Ojbh-Zuaf, (Creon) 66132-03709 units capsule Indications: Pancreatic insufficiency (HCC) TAKE 2 CAPSULES BY MOUTH DAILY WITH MEALS AND 1 CAPSULE BY MOUTH WITH SNACKS DIRECTED 240capsule 3 08/15/2024 ActiveStart: 96-21-3266fnfmvrpgxhes, Vla-Iaba-Uure, (Creon) 22372-36253 units capsule Indications: Pancreatic insufficiency (CMS/HCC) TAKE 2 CAPSULES BY MOUTH DAILY WITH MEALS AND 1 CAPSULE BY MOUTH WITH SNACKS [id number] capsule 3 01/25/2024 ActiveStart: 43-79-6609qxgf 17500-58697 capsules by mouth once Tewitx-Vmclydbc-Uxgdlms (Pork) (Creon) 24,000-76,000 -120,000 unit Capsule,Delayed Release(Dr/Ec) Active 2 CAP PO 3x/Day with meals 120 30 0 May 07, 2023 12:00am Complies with drug therapyStart: 05-02-2018 End: 13-89-7834smlb 1 capsule by mouth three times daily as needed for muscle wkmqesWcvscn-Zdpizjyu-Pwskaoc (Pork) (Creon) 24,000-76,000 -120,000 unit capsule,delayed release(DR/EC) Discontinued 1 CAP PO Three times daily as needed for gastrointestinal spasms or cramping February 05, 2024 12:00am August 31, 2024 11:08am administer one cap with imicuzgylbnd-pxvpdckr-xugumts (CREON) 36893-60220 units delayed release capsule Take 12,000 Units by mouth take with snacks 0 Activeaspirin 81 mg oral capsule (20 sources)Platelet Aggregation Inhibitor, Nonsteroidal Anti-inflammatory Drug Start: 55-95-3562wwlj 1 mg by mouth every twenty-four hoursaspirin 81 mg oral capsule mg cap(s), Oral, q24hr, Refills(s) 0 Start Date: 04/25/25 Status: Ordered Medication Dispense Status: Completed Total Allowed Fills: 1 Fills Dispensed: 0Start: 05-03-2023 End: 57-17-4128dmye 1 tablet by mouth once dailyAspirin 81 mg Tablet,Delayed Release (Dr/Ec) Active 81 MG PO Daily 30 30 0 May 07, 2023 12:00am Complies with drug therapyatorvastatin 40 mg oral tablet (20 sources)HMG-CoA Reductase InhibitorStart: 19-07-4649olxnueeehcnx 40 mg Tab Refills(s) 0 Start Date: 04/25/25 Status: Ordered Medication Dispense Status: Completed Total Allowed Fills: 1 Fills Dispensed: 0Start: 05-03-2023 End: 21-79-1106xtfz 1 tablet by mouth once daily at bedtimeAtorvastatin 80 mg tablet Discontinued 80 MG PO Daily at bedtime 90 90 1 October 28, 2023 12:00am February 28, 2024 8:12am End: 59-12-1981ppzdjcxnrfak (Lipitor) 80 MG tablet Take 40 mg by mouth Daily 05/02/2025 Discontinued (Reorder)Blood Sugar Diagnostic (20 sources)Start: 18-18-5111Jmcwk Sugar Diagnostic Active STRIP 120 September 05, 2023 12:00am Fingerstick blood sugar ACHSStart: 39-32-7483Zzsbi Sugar Diagnostic Active STRIP 120 September 05, 2023 1:00am Fingerstick blood sugar ACHSBlood-Glucose Sensor (DEXCOM G7 SENSOR) delfin (8 sources)Start: 15-53-2542Yfmwh-Glucose Sensor (DEXCOM G7 SENSOR) delfin Indications: 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 3 each 12/25/2024 01/01/2025 DiscontinuedStart: 69-57-8331Zcmvb-Glucose Sensor (DEXCOM G7 SENSOR) delfin Indications: Type [...] oral capsule (20 sources)Cephalosporin AntibacterialStart: 05-17-2025 End: 16-93-9777ozyu 1 capsule by mouth every twelve hoursKeflex 500 mg Cap 500 mg = 1 cap(s), Oral, q12hr, X 5 day(s), # 10 cap(s), Refills(s) 0, Pharmacy: [facility]/pharmacy #[id number], 177, cm, 05/17/25 10:58:00 EST, Height/Length Dosing, 61.7, kg, 05/17/25 10:58:00 EST, Weight Dosing Start Date: 05/17/25 Stop Date: 05/22/25 Status: Ordered Medication Dispense Status: Completed Quantity: 10.0 Unit: cap(s) Total Allowed Fills: 1 Fills Dispensed: 0Start: 60-49-3787cvvr 1 capsule by mouth once dailyKeflex 500 mg Cap 500 mg = 1 cap(s), Oral, Daily, Take 1 cap day prior to procedure and 1 cap day of procedure, # 2 cap(s), Refills(s) 0, Pharmacy: [facility]/pharmacy #[id number], 177, cm, 04/25/25 14:48:00 EDT,Height/Length Dosing, 61.5, kg, 04/25/25 14:48:00 EDT, Weight Dosing Start Date: 04/26/25 Status: Ordered Medication Dispense Status: Completed Quantity: 2.0 Unit: cap(s) Total Allowed Fills: 1 FillsDispensed: 0Start: 06-21-2024 End: 96-43-0108gznh 1 capsule by mouth three times dailyCephalexin 500 mg capsule Discontinued 500 MG PO Three times daily 21 June 21, 2024 11:28am July 16, 2024 8:10pmStart: 06-18-2024 End: 08-78-8342uqmz 1 capsule by mouth twice dailyCephalexin 500 mg capsule Discontinued 500 MG PO Twice daily 14 7 0 June 18, 2024 1:00am June 21, 2024 11:28amcetirizine hydrochloride 10 mg oral tablet (20 sources)Histamine-1 Receptor Antagonist End: 72-01-6708gwwu 1 tablet by mouth once dailycetirizine (ZYRTEC) 10 mg tablet Take 10 mg by mouth once daily. Activecholecalciferol 0.05 mg oral tablet (20 sources)Vitamin DStart: 10-26-2023 End: 23-00-0399pvrk 1 tablet by mouth once dailycholecalciferol (Vitamin D-3) 50 MCG (2000 UT) tablet Take 2,000 Units by mouth Daily 10/26/2023 ActiveStart: 16-44-1067ctft 100 ug by mouth once dailyCholecalciferol (Vitamin D3) 125 mcg/0.5 mL (5K unit/0.5mL) drops Active 100 MCG PO Daily October 26, 2023 12:00am Complies with drug therapyStart: 85-79-7735llmx 100 ug by mouth once dailyCholecalciferol (Vitamin D3) Active 100 MCG PO Daily October 25, 2023 11:00pmStart: 70-27-4412zgqm 100 ug by mouth once dailyCholecalciferol (Vitamin D3) Active 100 MCG PO Daily October 26, 2023 12:00amStart: 08-31-2023 End: 91-29-0813sgny 1 tablet by mouth once dailyCholecalciferol (Vitamin D3) (Vitamin D3) 50 mcg (2,000 unit) tablet Discontinued 50 MCG PO Daily August 31, 2023 1:00am October 28, 2023 2:44pm End: 54-53-2093gokh 1 capsule by mouth in the morningcholecalciferol (Vitamin D- 3) 25 MCG (1000 UT) capsule Take 25 mcg by mouth in the morning. 07/20/2024 Discontinued (Therapy completed)Cholecalciferol (Vitamin D3) 125 mcg/0.5 mL (5K unit/0.5mL) drops (7 sources)Start: 14-14-0955qhnh 100 ug by mouth once dailyCholecalciferol (Vitamin D3) 125 mcg/0.5 mL (5K unit/0.5mL) drops Active 100 MCG PO Daily October 26, 2023 12:00amStart: 55-51-9380ajof 100 ug by mouth once daily Cholecalciferol (Vitamin D3) 125 mcg/0.5 mL (5K unit/0.5mL) drops Active 100 MCG PO Daily October 25, 2023 11:00pmCreon 6000 UNIT (4 sources)Creon 6000 UNIT as directed Orally Activedocusate sodium 50 mg / sennosides, fci 8.6 mg oral tablet (2 sources)take 1 tablet by mouth once dailysenna-docusate sodium (Senokot-S) 8.6-50 MG tablet Take 1 tablet by mouth Daily Activedoxycycline hyclate 100 mg oral capsule (2 sources)Tetracycline-class DrugStart: 08-30-2024 End: 13-53-4141nhvaikvceij (Vibramycin) 100 MG capsule Indications: Lower respiratory [...] glucagon 5 mg/ml auto-injector (20 sources)Antihypoglycemic AgentStart: 50-66-9873omldhzvk (GVOKE HYPOPEN 2- PACK) 1 mg/0.2 mL auto-injector Inject 1 mg subcutaneously as needed. 0.4mL 3 07/06/2024 ActiveStart: 89-55-2716helxevhn (rDNA) injection 1 mginject 1 mg by subcutaneous injection onceGvoke HypoPen 1-Pack 1 MG/0.2ML injection Inject 1 mg under the skin 1 (one) time if needed Rhqltq853 ml glucose 50 mg/ml injection (3 sources)Start: 26-39-8339ubqbybsu bolus 10% 125 mLStart: 01-02-2022 End: 74-75-4574sekmkmaz 5 % solution1 ml hydrALAZINE hydrochloride 20 mg/ml injection (1 source)Arteriolar VasodilatorStart: 38-16-8424tatmWVPIBDP (APRESOLINE) injection 10 mg24 hr hydroCHLOROthiazide 12.5 mg / metoprolol succinate 25 mg extended release oral tablet (2 sources)Thiazide Diuretic, beta-Adrenergic BlockerStart: 04-25-2025 hydrochlorothiazide-metoprolol 12.5 mg-25 mg oral tablet, extended release Refill(s) 0 Start Date: 04/25/25 Status: Ordered Medication Dispense Status: Completed Total Allowed Fills: 1 Fills Dispensed: 0Insulin Aspart U-100 (Novolog Flexpen U-100 Insulin) 100 unit/mL (3 mL) Insulin Pen (20 sources)Start: 55-82-8358Dfnaath Aspart U-100 (Novolog Flexpen U-100 Insulin) 100 unit/mL (3 mL) Insulin Pen Active 0 UNIT SUBCUT 3X/Day with meals and bedtime 0 September 03, 2023 1:00am Please contact the information source for Protocol details.Start: 09-03-2023 End: 49-44-1416Wldpjua Aspart U-100 (Novolog Flexpen U-100 Insulin) 100 unit/mL (3 mL) Insulin Pen Discontinued 0 UNIT SUBCUT 3x/Day with meals 0 September 03, 2023 1:00am October 28, 2023 2:44pm On Hold: medication in twice Please contact the information source for Protocol details.Start: 32-74-9449Thhyzyd Aspart U- 100 (Novolog Flexpen U-100 Insulin) 100 unit/mL (3 mL) Insulin Pen Active 0 UNIT SUBCUT 3X/Day with meals and bedtime 0 September 03, 2023 12:00am Please contact the information source for Protocol details.Start: 09-03-2023 End: 43-59-5805Maosdkv Aspart U-100 (Novolog Flexpen U-100 Insulin) 100 unit/mL (3 mL) Insulin Pen Discontinued 0 UNIT SUBCUT 3x/Day with meals 0 September 03, 2023 12:00am October 28, 2023 1:44pm On Hold: medication in twice Please contact the information source for Protocol details.Start: 37-91-7156Dqrpwfp Aspart U- 100 (Novolog Flexpen U-100 Insulin) 100 unit/mL (3 mL) Insulin Pen Active 0 UNIT SUBCUT 3X/Day with meals and bedtime 0 September 03, 2023 12:00amStart: 09-03-2023 End: 13-22-1587Mswkwmx Aspart U-100 (Novolog Flexpen U-100 Insulin) 100 unit/mL (3 mL) Insulin Pen Discontinued 0 UNIT SUBCUT 3x/Day with meals 0 September 03, 2023 12:00am October 28, 2023 1:44pmStart: 09-03-2023 End: 50-43-9888Qgqggvd Aspart U-100 (Novolog Flexpen U-100 Insulin) 100 unit/mL (3 mL) Insulin Pen Discontinued 0 UNIT SUBCUT 3x/Day with meals 0 September 03, 2023 1:00am October 28, 2023 2:44pmStart: 51-54-6257Wzyapso Aspart U-100 (Novolog Flexpen U-100 Insulin) 100 unit/mL (3 mL) Insulin Pen Active 0 UNIT MUNOZ BCUT 3x/Day with meals 0 September 03, 2023 1:00amStart: 26-18-5868Jjetvwb Aspart U-100 (Novolog Flexpen U-100 Insulin) 100 unit/mL (3 mL) Insulin Pen Active 0 UNIT SUBCUT 3X/Day with meals and bedtime 0 September 03, 2023 1:00am Start: 05-07-2023 End: 92-82-7521Fulbrhn Aspart U-100 (Novolog Flexpen U-100 Insulin) 100 unit/mL (3 mL) Insulin Pen Discontinued 0 UNITS SUBCUT 3x/Day with meals 0 May 07, 2023 12:00am September 05, 2023 3:28pm Please contact the information source for Protocol details.Start: 05-07-2023 End: 23-37-1004Mwjckot Aspart U-100 (Novolog Flexpen U-100 Insulin) 100 unit/mL (3 mL) Insulin Pen Discontinued 0 UNITS SUBCUT 3x/Day with meals 0 May 06, 2023 11:00pm September 05, 2023 2:28pm Please contact the information source for Protocol details.Start: 05-07-2023 End: 98-57-5949kabgye 1 dose by subcutaneous injection at bedtimeInsulin Aspart U-100 (Novolog Flexpen U-100 Insulin) 100 unit/mL (3 mL) Insulin Pen Discontinued 1 sliding scale dose SUBCUT Before meals and at bedtime May 06, 2023 11:00pm September 05, 2023 2:28pmStart: 05-07-2023 End: 24-07-8648Ovdzenr Aspart U-100 (Novolog Flexpen U-100 Insulin) 100 unit/mL (3 mL) Insulin Pen Discontinued 0 UNITS SUBCUT 3x/Day with meals May 06, 2023 11:00pm September 05, 2023 2:28pmStart: 05-07-2023 End: 33-39-3415dmpndy 1 dose by subcutaneous injection at bedtimeInsulin Aspart U-100 (Novolog Flexpen U-100 Insulin) 100 unit/mL (3 mL) Insulin Pen Discontinued 1 sliding scale dose SUBCUT Before meals and at bedtime May 07, 2023 12:00am September 05, 2023 3:28pmStart: 05-07-2023 End: 82-58-9200Nfodklh Aspart U-100 (Novolog Flexpen U-100 Insulin) 100 unit/mL (3 mL) Insulin Pen Discontinued 0 UNITS SUBCUT 3x/Day with meals May 07, 2023 12:00am September 05, 2023 3:28pmStart: 63-52-0398xcnvye 1 dose by subcutaneous injection at bedtimeInsulin Aspart U-100 (Novolog Flexpen U-100 Insulin) 100 unit/mL (3 mL) Insulin Pen Active 1 sliding scale dose SUBCUT Before meals and at bedtime May 06, 2023 11:00pmStart: 05-07-2023 Insulin Aspart U-100 (Novolog Flexpen U-100 Insulin) 100 unit/mL (3 mL) Insulin Pen Active 0 UNITS SUBCUT 3x/Day with meals May 06, 2023 11:00pmStart: 01-38-0871lbyzse 1 dose by subcutaneous injection at bedtimeInsulin Aspart U-100 (Novolog Flexpen U-100 Insulin) 100 unit/mL (3 mL) Insulin Pen Active 1 sliding scale dose SUBCUT Before meals and at bedtime May 07, 2023 12:00am Start: 76-92-7153Npqfobv Aspart U-100 (Novolog Flexpen U-100 Insulin) 100 unit/mL (3 mL) Insulin Pen Active 0 UNITS SUBCUT 3x/Day with meals May 07, 2023 12:00amStart: 05-03-2023 End: 15-97-0917Rjjpvuo Aspart U-100 (Novolog Flexpen U-100 Insulin) 100 unit/mL (3 mL) Insulin Pen Discontinued 0 UNITS SUBCUT 3x/Day with meals May 03, 2023 12:00am May 03, 2023 5:09pm Please contactthe information source for Protocol details.Start: 05-03-2023 End: 76-44-3379Kckeucv Aspart U-100 (Novolog Flexpen U-100 Insulin) 100 unit/mL (3 mL) Insulin Pen Discontinued 0 UNITS SUBCUT 3x/Day with meals 0 May 02, 2023 11:00pm May 03, 2023 4:09pm Please contactthe information source for Protocol details.Start: 05-03-2023 End: 27-84-1276Qkgoqay Aspart U-100 (Novolog Flexpen U-100 Insulin) 100 unit/mL (3 mL) Insulin Pen Discontinued 0 UNITS SUBCUT 3X/Day with meals and bedtime 0 May 02, 2023 11:00pm May 03, 2023 4:10pmStart: 05-03-2023 End: 67-16-6997Vxklpmy Aspart U-100 (Novolog Flexpen U-100 Insulin) 100 unit/mL (3 mL) Insulin Pen Discontinued 0 UNITS SUBCUT 3x/Day with meals 0 May 02, 2023 11:00pm May 03, 2023 4:09pmStart: 05-03-2023 End: 38-31-6719Wbqxjmi Aspart U-100 (Novolog Flexpen U-100 Insulin) 100 unit/mL (3 mL) Insulin Pen Discontinued 0 UNITS SUBCUT 3X/Day with meals and bedtime 0 May 03, 2023 12:00am May 03, 2023 5:10pmStart: 05-03-2023 End: 90-21-5398Ebijlrh Aspart U-100 (Novolog Flexpen U-100 Insulin) 100 unit/mL (3 mL) Insulin Pen Discontinued 0 UNITS SUBCUT 3x/Day with meals 0 May 03, 2023 12:00am May 03, 2023 5:09pmStart: 14-71-8147Ypmptca Aspart U-100 (Novolog Flexpen U-100 Insulin) 100 unit/mL (3 mL) Insulin Pen Active 0 UNITS S UBCUT 3X/Day with meals and bedtime 0 May 03, 2023 12:00amStart: 78-07-4103Jpazdjz Aspart U-100 (Novolog Flexpen U-100 Insulin) 100 unit/mL (3 mL) Insulin Pen Active 0 UNITS SUBCUT 3x/Day with meals 0 May 03, 2023 12:00aminsulin aspart, human 100 unt/ml injectable solution (20 sources)Insulin AnalogStart: 66-82-2088Fzgaleo Aspart 100 UNIT/ML solution 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 Inject before meals. Use a directed by gun fitter. 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 Complies with drug therapyStart: 08-31-2023 End: 79-41-0486Xcmocyj Aspart U-100 (Novolog U-100 Insulin Aspart) 100 unit/mL solution Discontinued 50 UNIT CNTSUBQINF Daily August 31, 2023 1:00am September 05, 2023 3:28pm per insulin pumpStart: 08-18-2023 End: 77-31-0997QjdkFXC FLEXPEN 100 UNIT/ML pen 08/18/2023 07/20/2024 Discontinued (Therapy completed)Start: 05-07-2023 End: 00-78-6475Schoyvn Aspart U-100 (Novolog Flexpen U-100 Insulin) 100 unit/mL (3 mL) Insulin Pen Discontinued 0 UNIT SUBCUT 3x/Day with meals Protocol: *Carb coverage 1:10*Give 1 unit of rapid-acting insulin for every 10 gm of carbohydrates eaten at meals 0 0 September 03, 2023 1:00am October 28, 2023 2:44pm On Hold: medication in twice Please contact the information source for Protocol details.Start: 05-03-2023 End: 64-96-6121Opvatve Aspart U-100 (Novolog Flexpen U-100 Insulin) 100 [...] information source for Protocol details.Start: 04-28-2023 End: 91-97-3891Lxlshif Aspart U-100 (Novolog Flexpen U-100 Insulin) 100 unit/mL (3 mL) Insulin Pen Discontinued 0 UNITS SUBCUT 3x/Day with meals Protocol: *CARB COVERAGE 1:10*GIVE 1 UNIT OF ASPART FOR EVERY 10 GM CHO EATEN AT MEALS 0 0 May 03, 2023 12:00am May 03, 2023 5:09pm Please contact the [employer] source for Protocol details.Start: 04-28-2023 End: 35-57-3587hellht 5 [IU] by subcutaneous injection after breakfastInsulin [...] 100 unt/ml pen injector (20 sources)Insulin AnalogStart: 28-95-0363ugldyl 1 [IU] by subcutaneous injection at bedtimeinsulin glargine (Basaglar KwikPen) 100 UNIT/ML pen 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) Inject 12 Units under the skin at bedtime 10 mL 06/02/2024 07/20/2024 Discontinued (Therapy completed)Start: 05-30-2024 End: 42-33-5226uwlzjq 16 [IU] by subcutaneous injection at bedtimeinsulin glargine (Lantus) 100 UNIT/ML injection Indications: 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) Inject 16 Units under the skin at bedtime 10 mL 05/30/2024 08/28/2024 ActiveStart: 09-03-2023 End: 30-21-4667Ddtbwlh Glargine (Lantus Solostar U-100 Insulin) 100 unit/mL (3 mL) Insulin Pen Discontinued 24 UNIT SUBCUT Daily 0 0 September 03, 2023 1:00am October 28, 2023 2:43pm On Hold: medication in twiceStart: 08-31-2023 End: 05-61-2422Rzmwceg Glargine (Lantus Solostar U-100 Insulin) 100 unit/mL (3 mL) Insulin Pen Discontinued 16 UNIT SUBCUT Bedtime August 31, 2023 1:00am July 16, 2024 8:12pmStart: 11-08-1732jrnwma 8 [IU] by subcutaneous injection at bedtimeInsulin Glargine (Lantus Solostar U-100 Insulin) 100 unit/mL (3 mL) Insulin Pen Active 8 UNIT SUBCUT Bedtime August 31, 2023 1:00amStart: 08-30-2023 End: 65-38-8001tkpffq 8 [IU] by subcutaneous injection at bedtimeinsulin glargine (Lantus) 100 UNIT/ML injection Indications: 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 (CMS/HCC) Inject 8 Units under the skin at bedtime 08/30/2023 05/30/2024 Discontinued (Reorder)Start: 08-20-2023 End: 98-51-6684Nvljub SoloStar 100 UNIT/ML pen Inject 18 Units under the skin at bedtime 08/20/2023 07/20/2024 Discontinued (Therapy completed)Start: 05-03-2023 End: 33-16-4631oaybta 7 [IU] by subcutaneous injection twice dailyInsulin Glargine (Lantus Solostar U-100 Insulin) 100 unit/mL (3 mL) Insulin Pen Discontinued 7 UNITS SUBCUT Twice daily 4.2 30 0 May 07, 2023 12:00am August 31, 2023 4:55pmStart: 04-28-2023 End: 27-42-7117Nbwhepl Glargine (Lantus Solostar U-100 Insulin) 100 unit/mL (3 mL) insulin pen Discontinued 18 UNIT SUBCUT Bedtime April 28, 2023 12:00am May 03, 2023 5:10pm End: 48-15-6027yoigyk 100 [IU] by subcutaneous injection at bedtimeinsulin [...] - Basal Dose (Patient Supplied) (1 source)Start: 59-15-4914Nbhucrc Pump - Basal Dose (Patient Supplied)Insulin Pump - Bolus Dose (Patient Supplied) (1 source)Start: 72-18-1227Uhgdhyq Pump - Bolus Dose (Patient Supplied)insulin pump cart,auto,BT,G6/7 (OMNIPOD 5 G6-G7 PODS, GEN 5,) crtg (20 sources)Start: 86-53-2844lersiqv pump cart,auto,BT,G6/7 (OMNIPOD 5 G6-G7 PODS, GEN 5,) crtg Indications: 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 10 Each 07/06/2024 ActiveLactobac no.41/Bifidobact no.7 (PROBIOTIC-10 ORAL) (20 sources)Lactobac no.41/Bifidobact no.7 (PROBIOTIC-10 ORAL) Take by mouth once daily. ActiveLactobacillus Combination No.4 (Probiotic) 3 billion cell capsule (6 sources)Start: 08-19-4067tqdh 3 capsules by mouth once dailyLactobacillus Combination No.4 (Probiotic) 3 billion cell capsule Active 3000 MMU CELLS PO Daily August 31, 2024 1:00am administer with a meal Complies with drug therapyStart: 59-21-7242vwyc 3 capsules by mouth once dailyStart: 13-77-7881gpwr 3 capsules by mouth once dailyLactobacillus Combination No.4 (Probiotic) 3 billion cell capsule Active 3000 MMU CELLS PO Daily August 31, 2024 1:00am administer with a mealStart: 63-09-3687cvem 3 capsules by mouth once daily Lactobacillus Combination No.4 (Probiotic) 3 billion cell capsule Active 3000 MMU CELLS PO Daily August 31, 2024 12:00am administer with a meal lipase/protease/amylase (CREON ORAL) (2 sources)take 72183 mg by mouth three times dailylipase/protease/amylase (CREON ORAL) Take 24,000 mg by mouth 3 times a day. 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) Take 1 tablet (25 mg) by mouth Daily 05/02/2025 Activelutein 6 mg oral capsule (20 sources)Start: 10-26-2023 End: 65-99-8270khtc 1 capsule by mouth once dailyLutein 6 [...] melatonin 1 mg oral tablet (1 source)Start: 15-38-4187atqqeoyet tablet 3 mg24 hr metoprolol succinate 50 mg extended release oral tablet (20 sources)beta-Adrenergic BlockerStart: 05-02-2025 End: 29-67-9117zqdi 0.5 tablet by mouth every twenty-four hours in the morning metoprolol succinate XL (Toprol-XL) 50 MG 24 hr tablet Indications: Hypertensive heart disease withchronic systolic congestive heart failure (HCC) Take 0.5 tablets (25 mg) by mouth in the morning and 0.5 tablets (25 mg) before bedtime. Do not crush or chew. 05/02/2025 ActiveStart: 54-62-8845hups 2 tablets by mouth once daily at bedtimeMetoprolol Succinate 25 mg tablet extended release 24 hr Active 12.5 MG PO Daily at bedtime 45 90 0Sept2024 12:00am Complies with drug therapyStart: 07-16-2024 End: 77-09-9771omqd 2 tablets by mouth twice dailyMetoprolol Succinate 25 mg tablet extended release 24 hr Discontinued 12.5 MG PO Twice daily 90 90 2 December 05, 2024 9:38am March 27, 2025 10:50amStart: 28-35-0940tbub 0.5 tablet by mouth every twelve hoursmetoprolol succinate ER (TOPROL XL) 50 mg 24 hr tablet Take 0.5 tablets by mouth every 12 hours. 06/21/2024 ActiveStart: 05-25-2024 End: 27-00-2869urlm 1 tablet by mouth twice dailyMetoprolol Succinate 50 mg Tablet Extended Release 24 Hr Discontinued 50 MG PO Twice daily 60 30 3 May 25, 2024 1:00am July 16, 2024 8:14pmStart: 05-16-2024 End: 76-34-9811ypcf 2 tablets by mouth twice dailyMetoprolol Succinate 25 mg tablet extended release 24 hr Discontinued 12.5 MG PO Twice daily May 16, 2024 1:00am May 25, 2024 10:49amStart: 49-68-8673fewu 12.5 mg by mouth twice dailyMetoprolol Succinate Active 12.5 MG PO Twice daily May 16, 2024 12:00amStart: 04-24-2024 End: 77-91-9399mdor 0.5 tablet by mouth every twenty-four hours in the morning metoprolol succinate XL (Toprol-XL) 25 MG 24 hr tablet Indications: Coronary arteriosclerosis (CMS/HCC) Take 0.5 tablets (12.5 mg) by mouth in the morning and 0.5 tablets (12.5 mg) before bedtime. 180 tablet 3 04/24/2024 05/30/2024 Discontinued (Therapy completed)Start: 02-15-2024 End: 01-78-9773kpkw 2 tablets by mouth once dailyMetoprolol Succinate 25 mg tablet extended release 24 hr Discontinued 12.5 MG PO Daily 45 90 1 February 15, 2024 12:00am May 16, 2024 1:54pmStart: 02-15-2024 End: 44-72-7704cpln 12.5 mg by mouth once dailyMetoprolol Succinate Discontinued 12.5 MG PO Daily 45 90 February 14, 2024 11:00pm May 16, 2024 12:54pm Start: 02-05-2024 End: 16-38-3818wkfc 2 tablets by mouth twice dailyMetoprolol Succinate (Toprol Xl) 25 mg tablet extended release 24 hr Discontinued 12.5 MG PO Twice daily February 05, 2024 12:00am February 15, 2024 10:58am End: 36-08-9909cbhu 1 tablet by mouth every twenty-four hours in the morning metoprolol succinate XL (Toprol-XL) 25 MG 24 hr tablet Take 12.5 mg by mouth in the morning and 12.5 mg before bedtime. Do not crush or chew.. 01/02/2025 Discontinued (Dose adjustment)Multi Vitamins oral tablet (2 sources)Start: 88-42-1548iqhf 1 tablet by mouth once dailyMulti Vitamins oral tablet Oral, Daily, Refill(s) 0 Start Date: 04/25/25 Status: Ordered Medication Dispense Status: Completed Total Allowed Fills: 1 Fills Dispensed: 0Start: 46-29-6853afel 1 tablet by mouth once dailyMulti Vitamins oral tablet Oral, Daily, Refill(s) 0 Start Date: 04/25/25 Status: Ordered Repeat number: 1Multiple Vitamins-Minerals (LUTEIN-ZEAXANTHIN PO) (1 source)take 1 tablet by mouth once dailyMultiple Vitamins-Minerals (LUTEIN- ZEAXANTHIN PO) Take 1 tablet by mouth daily 0 ActiveMultivit With Min-Folic Acid (Centrum Adults) 12 mcg tablet,chewable (20 sources)Start: 53-00-7496ebux 1 tablet by mouth once dailyMultivit With Min- Folic Acid (Centrum Adults) 12 mcg tablet,chewable Active 1 TAB PO Daily October 26, 2023 12:00am Complies with drug therapyStart: 74-81-4951lcis 1 tablet by mouth once dailyStart: 99-38-9022ctrp 1 tablet by mouth once dailyMultivit With Min-Folic Acid (Centrum Adults) 12 mcg tablet,chewable Active 1 TAB PO Daily October 25, 2023 11:00pmStart: 08-51-8924bvle 1 tablet by mouth once daily Multivit With Min-Folic Acid (Centrum Adults) 12 mcg tablet,chewable Active 1 TAB PO Daily October 26, 2023 12:00ammultivit-min/ferrous fumarate (MULTI VITAMIN ORAL) (1 source)take 1 tablet by mouth once dailymultivit-min/ferrous fumarate (MULTI VITAMIN ORAL) Take 1 tablet by mouth once daily. 0 Activeondansetron (ZOFRAN- ODT) disintegrating tablet 4 mg (1 source)Start: 62-47-5350iqhcasijbjw (ZOFRAN-ODT) disintegrating tablet 4 mg pantoprazole (PROTONIX) 40 mg in sodium chloride (PF) 10 mL injection (1 source)Start: 58-86-463159 mg, IntraVENous, EVERY 12 HOURS, First dose on Wed01/02/22 at 2300 Reconstitute with 10 mL 0.9 %sodium chloride and administer over at least 2 minutes.PARoxetine hydrochloride 40 mg oral tablet (20 sources)Serotonin Reuptake InhibitorStart: 08-11-2024 End: 57-81-2946ngwshbvsrt 40 mg Tab Refills(s) 0 Start Date: 04/25/25 Status: Ordered Medication Dispense Status: Completed Total Allowed Fills: 1 Fills Dispensed: 0Start: 02-15-2024 End: 12-81-4387slua 1 tablet by mouth once daily in the morningPARoxetine (Paxil) 40 MG tablet Indications: Generalized anxiety disorder TAKE 1 TABLET BY MOUTH EVERY DAY IN THE MORNING 90 tablet 3 08/11/2024 ActiveStart: 04-28-2023 End: 90-95-1702kxwl 1 tablet by mouth once dailyParoxetine Hcl 30 mg Tablet Discontinued 30 MG PO Daily 30 30 0 May 07, 2023 12:00am February 15, 2024 10:09amStart: 19-58-4800jajo 30 mg by mouth once daily in the jxrpajv00 mg, Oral, EVERY MORNING, First dose on Wed01/05/22 at 0900, Until Discontinued Probiotic Product (PROBIOTIC-10 PO) (1 source)take 1 capsule by mouth once dailyProbiotic Product (PROBIOTIC-10 PO) Take 1 capsule by mouth daily 0 [id number] ml sodium chloride 9 mg/ml injection (4 [...] or less into rate field of order.Start: 07-73-6793cymj 1 dose intravenously twice daily5-40 mL, IntraVENous, [...] Midline or Central Line = 20 mL/lumenStart: 20-94-0911ihgl 5-40 mL intravenously once as needed5-40 mL, [...] oral tablet (20 sources)Aldosterone AntagonistStart: 10-13-2024 End: 15-47-7530uutz 1 tablet by mouth once dailyspironolactone (Aldactone) 25 MG tablet Indications: Chronic systolic CHF (congestive heart failure), NYHA class 2 (HCC) Take 1 tablet (25 mg) by mouth Daily 90 tablet 3 01/17/2025 Active Start: 08-31-2024 End: 63-25-5318Fwvnyhehrvxpyj 25 mg tablet Discontinued 12.5 MG PO Daily 15 30 2 August 31, 2024 1:00am October 13, 2024 9:58amStart: 07-16-2024 End: 15-22-2621yxkg 1 tablet by mouth once dailySpironolactone 25 mg tablet Discontinued 25 MG PO Daily July 16, 2024 1:00am August 31, 2024 11:09am Start: 03-27-2024 End: 74-67-1821Tnaetqkqdgaudp 25 mg tablet Discontinued 12.5 MG PO Every morning May 16, 2024 1:00am June 16, 2024 7:21pmStart: 03-27-2024 End: 44-09-8769efdq 12.5 mg by mouth once daily in the morningSpironolactone Active 12.5 MG PO Every morning May 16, 2024 12:00amStart: 02-05-2024 End: 38-64-8335qqxj 1 tablet by mouth once dailySpironolactone 25 mg Tablet Discontinued 25 MG PO Daily 90 90 0 February 08, 2024 12:00am March 27, 2024 11:44amtamsulosin hydrochloride 0.4 mg oral capsule (20 sources)alpha-Adrenergic BlockerStart: 05-57-1571dtfv 1 capsule by mouth once dailyTamsulosin (Flomax) 0.4 mg capsule Active 0.4 MG PO Daily May 09, 2025 12:00am Complies with drug therapyStart: 49-24-5401uiqz 1 capsule by mouth every twenty-four hours at bedtimetamsulosin (Flomax) 0.4 MG 24 hr capsule Take 1 capsule by mouth at bedtime 05/16/2024 ActiveStart: 04-28-2023 End: 70-57-8729yjsa 1 capsule by mouth once dailyTamsulosin 0.4 mg Capsule Discontinued 0.4 MG PO Daily 30 30 0 May 07, 2023 12:00am May 16, 2024 1:54pmVitamin D (2 sources)Start: 84-49-3259trlv 1 dose by mouth every weekVitamin D International_Unit, Oral, qWeek, Refills(s) 0 Start Date: 04/25/25 Status: Ordered Medication Dispense Status: Completed Total Allowed Fills: 1 Fills Dispensed: 0Start: 42-17-9093Wlzhflf D International_Unit, Oral, qWeek, Refills(s) 0 Start Date: 04/25/25 Status: Ordered Repeatnumber: 1Vitamin D3 [id number] UNIT/GM (4 sources)Vitamin D3 [id number] UNIT/GM as directed Active Completed/Discontinued Medications MedicationDrug Class(es)DatesSig (Normalized)Sig (Original)acetaminophen 500 mg oral tablet (20 sources)Start: 05-03-2023 End: 74-51-5813mdgk 1 tablet by mouth every six hoursAcetaminophen 500 mg Tablet Discontinued 500 MG PO Every 6 hours 90 0 May 07, 2023 12:00am August 31, 2023 3:53pmStart: 05-03-2023 End: 77-36-7679nlob 1-3 tablets by mouth every four hours as needed for pain Acetaminophen (Tylenol) 325 mg Tablet Discontinued 650 MG PO Q4H as needed for Pain Scale 1 - 3 or fever 0 0 May 03, 2023 12:00am May 03, 2023 5:10pmStart: 05-03-2023 End: 42-43-7345whco 2 tablets by mouth every four hoursAcetaminophen (Tylenol) 325 mg Tablet Discontinued 650 MG PO Q4H 0 May 02, 2023 11:00pm May 03, 2023 4:10pmStart: 16-53-9829zbxcpnxalqzyq (TYLENOL) tablet 1,000 mg Acetaminophen Extra Strength 500 MG tablet Daily. Activeacetaminophen 325 mg / HYDROcodone bitartrate 5 mg oral tablet (20 sources)Opioid AgonistStart: 05-03-2023 End: 51-80-5146bocw 1 tablet by mouth every four hours [...] 4-6 hrs for 7 days ROSEANN # [id number] Activetake 1 tablet by mouth every six hoursHYDROcodone-Acetaminophen 5-325 MG 1 tablet as needed Orally every 6 hrs Activealuminum hydroxide 40 mg/ml / magnesium hydroxide 40 mg/ml / simethicone 4 mg/ml oral suspension (20 sources)Start: 05-03-2023 End: 22-22-7178avnb 1 mL by mouth every four hours as neededAlum-Mag Hydroxide- Simeth (Mag-Al Plus) 200-200-20 mg/5 mL Suspension Discontinued 30 ML PO Q4H as needed for Epigastric distress (Non-Card) 0 0 May 03, 2023 12:00am May 03, 2023 5:10pmamoxicillin 875 mg / clavulanate 125 mg oral tablet (2 sources)Penicillin-class AntibacterialStart: 04-17-2024 End: 33-24-7549dapk 1 tablet by mouth in the morningamoxicillin-clavulanate (Augmentin) 875-125 MG tablet Indications: Bronchitis Take 1 tablet (875 mg) by mouth in the morning and 1 tablet (875 mg) before bedtime. Do all this for 5 days. 14 tablet 04/17/2024 04/22/2024 Expiredascorbic acid 500 mg oral tablet (20 sources)Vitamin CStart: 05-03-2023 End: 22-80-4714midv 1 tablet by mouth once dailyAscorbic Acid (Vitamin C) (Vitamin C) 500 mg Tablet Discontinued 500 MG PO Daily 30 0 April 12:00am September 05, 2023 3:28pm End: 21-87-1146eewj 1 tablet by mouth once dailyascorbic acid (Vitamin C) 100 mg tablet Take 1 tablet (100 mg) by mouth once daily. 0 08/16/2023 Discontinued (Therapy completed)bisacodyl 10 mg rectal suppository (20 sources)Stimulant LaxativeStart: 05-03-2023 End: 49-81-1130Zkukvjcmv 10 mg Suppository Discontinued 10 MG MN Daily as needed for Constipation 0 0 May 03, 2023 12:00am May 03, 2023 5:10pmStart: 05-03-2023 End: 79-85-6036szay 2 tablets by mouth once daily as needed for constipation Bisacodyl 5 mg Tablet,Delayed Release (Dr/Ec) Discontinued 10 MG PO Daily as needed for Constipation 0 0 May 03, 2023 12:00am May 03, 2023 5:10pm Start: 05-03-2023 End: 82-79-7201yybm 10 mg by mouth once dailyBisacodyl Discontinued 10 MG PO Daily 0 May 02, 2023 11:00pm May 03, 2023 4:10pmStart: 01-02-2022 take 10 mg rectal route once daily as vyzoia88 mg, Rectal, DAILY PRN, Starting on Wed01/02/22 at 2231, Until Discontinued, Constipation First line therapy for constipationbismuth subsalicylate 17.5 mg/ml oral suspension (20 sources)BismuthStart: 09-05-2023 End: 13-92-1355ueoq 300 mg by mouth four times dailyBismuth Subsalicylate (Stomach Relief) 262 mg/15 mL Suspension Discontinued 300 MG PO Four times daily 824.429 12 0 September 054 1:00am October 21, 2023 8:40amcalcium carbonate 1250 mg / cholecalciferol 200 unt oral tablet (6 sources)Vitamin DStart: 05-03-2023 End: 23-70-2881rnsw 1 tablet by mouth once at mealtimeCalcium Carbonate-Vitamin D3 (Oyster Shell Calcium-Vit D3) 500 mg-5 mcg (200 unit) Tablet Discontinued 1 TAB PO 3x/Day with meals May 07, 2023 12:00am August 31, 2023 4:56pmCalcium Carbonate-Vitamin D3 (Oyster Shell Calcium-Vit D3) 500 mg-5 mcg (200 unit) Tablet (20 sources)Start: 05-07-2023 End: 82-00-7556dyfz 1 tablet by mouth once at mealtimeCalcium Carbonate-Vitamin D3 (Oyster Shell Calcium-Vit D3) 500 mg-5 mcg (200 unit) Tablet Discontinued 1 TAB PO 3x/Day with meals May 06, 2023 11:00pm August 31, 2023 3:56pmStart: 05-07-2023 End: 91-49-1867iyny 1 tablet by mouth once at mealtimeCalcium Carbonate-Vitamin D3 (Oyster Shell Calcium-Vit D3) 500 mg-5 mcg (200 unit) Tablet Discontinued 1 TAB PO 3x/Day with meals May 07, 2023 12:00am August 31, 2023 4:56pmStart: 48-10-5547qifu 1 tablet by mouth once at mealtimeCalcium Carbonate- Vitamin D3 (Oyster Shell Calcium-Vit D3) 500 mg-5 mcg (200 unit) Tablet Active 1 TAB PO 3x/Day with meals May 06, 2023 11:00pmStart: 09-36-6831glxa 1 tablet by mouth once at mealtimeCalcium Carbonate-Vitamin D3 (Oyster Shell Calcium-Vit D3) 500 mg-5 mcg (200 unit) Tablet Active 1 TAB PO 3x/Day with meals May 07, 2023 12:00amStart: 05-03-2023 End: 37-88-3393flwv 1 tablet by mouth once at mealtimeCalcium Carbonate-Vitamin D3 (Oyster Shell Calcium-Vit D3) 500 mg-5 mcg (200 unit) Tablet Discontinued 1 TAB PO 3x/Day with meals 0 May 02, 2023 11:00pm May 07, 2023 1:27pm Start: 05-03-2023 End: 52-51-0677miwz 1 tablet by mouth once at mealtimeCalcium Carbonate-Vitamin D3 (Oyster Shell Calcium-Vit D3) 500 mg-5 mcg (200 unit) Tablet Discontinued 1 TAB PO 3x/Day with meals 0 May 03, 2023 12:00am May 07, 2023 2:27pm Start: 54-19-6801lnoo 1 tablet by mouth once at mealtimeCalcium Carbonate- Vitamin D3 (Oyster Shell Calcium-Vit D3) 500 mg-5 mcg (200 unit) Tablet Active 1 TAB PO 3x/Day with meals 0 May 03, 2023 12:00amcalcium chloride 0.0014 meq/ml / potassium chloride 0.004 meq/ml / sodium chloride 0.103 meq/ml / sodium lactate 0.028 meq/ml injectable solution (1 source)Start: 01-02-2022 End: 68-00-6723ImrhsJZEbpw, at 125 mL/hr, CONTINUOUS, Starting on Wed01/02/22 at 2300clopidogrel 75 mg oral tablet (20 sources)P2Y12 Platelet InhibitorStart: 08-16-2023 End: 40-04-4433phhp 1 tablet by mouth once dailyClopidogrel 75 mg tablet Discontinued 75 MG PO Daily August 31, 2023 1:00am February 08, 2024 1:25pm collagenase Clostridium histolyticum (4 sources)Start: 75-88-4372Xeflogb Apr, 0.01 mgcyclobenzaprine hydrochloride 5 mg oral tablet (20 sources)Muscle RelaxantStart: 05-07-2023 End: 80-13-1102hook 1 tablet by mouth every eight hours [...] (20 sources)Sodium-Glucose Cotransporter 2 InhibitorStart: 08-30-2024 End: 43-12-4266wylg 1 tablet by mouth once dailyDapagliflozin Propanediol (Farxiga) 10 mg tablet Discontinued 10 MG PO Daily August 31, 2024 1:00am April 06, 2025 9:44amempagliflozin 10 mg oral tablet (20 sources)Sodium-Glucose Cotransporter 2 InhibitorStart: 03-27-2024 End: 65-46-1568vkiy 1 tablet by mouth once dailyEmpagliflozin (Jardiance) 10 mg tablet Discontinued 10 MG PO Daily 30 30 2 March 27, 2024 12:00am May 16, 2024 1:44pm0.4 ml enoxaparin sodium 100 mg/ml prefilled syringe (20 sources)Low Molecular Weight HeparinStart: 05-03-2023 End: 30-07-8260Wpycnchoek (Lovenox) 40 mg/0.4 mL Syringe Discontinued 40 MG SUBCUT DAILY@1000 0 15 0 April 12:00am May 07, 2023 2:27pm Start: 79-01-0293pvtwicnuel (LOVENOX) injection 40 mgferrous sulfate 324 mg delayed release oral tablet (20 sources)Start: 05-07-2023 End: 10-62-7158yyyv 1 tablet by mouth once dailyFerrous Sulfate 324 mg (65 mg iron) Tablet,Delayed Release (Dr/Ec) Discontinued 324 MG PO Daily 30 0 May 07, 2023 12:00am August 31, 2023 4:51pmtake 1 tablet by mouth once daily at mealtimeferrous sulfate, 325 mg ferrous sulfate, (iron) tablet Take 1 tablet (325 mg) by mouth once daily with a meal. 0 Tebksd098 ml fluconazole 2 mg/ml injection (1 source)Azole AntifungalStart: 01-02-2022 End: 37-90-2494oaqrgfegjas (DIFLUCAN) 400 mg IVPBfurosemide 20 mg oral tablet (20 sources)Loop DiureticStart: 08-09-2024 End: 40-96-6477qnvi 1 tablet by mouth once daily in the morningFurosemide 20 mg tablet Discontinued 0 .ROUTE .COMPLEX 90 1 August 09, 2024 12:46pm August 31, 2024 11:10am TAKE 1 TABLET BY MOUTH EVERY DAY AT 8 AMStart: 07-17-2024 End: 23-57-6778jwiq 1 tablet by mouth once dailyFurosemide 20 mg Tablet Discontinued 20 MG PO Daily at 0800 30 1 July 17, 2024 1:00am August 09, 2024 12:47pmStart: 02-15-2024 End: 17-08-4610gdkq 1 tablet by mouth once dailyFurosemide (Lasix) 20 mg tablet Discontinued 20 MG PO Daily February 15, 2024 12:00am February 15, 2024 10:58am Start: 08-31-2023 End: 42-28-0523Sicybipolq Discontinued MG TABLET August 31, 2023 12:00am September 05, 2023 2:28pmStart: 08-16-2023 End: 23-07-9044hbod 1 tablet by mouth once daily as neededFurosemide 20 mg tablet Discontinued 20 MG PO Daily as needed for as instructed 0 90 0 September 03, 2023 11:53am October 21, 2023 8:40am End: 97-74-0965qgjj 10 mg by mouth once dailyfurosemide (Lasix) 20 MG tablet Take 10 mg by mouth Daily 08/30/2024 Discontinued (Therapy completed)Insulin Aspart U-100 (Novolog Flexpen U-100 Insulin) 100 unit/mL (3 mL) insulin pen (20 sources)Start: 05-03-2023 End: 50-92-9464Sglfqln Aspart U-100 (Novolog Flexpen U-100 Insulin) 100 unit/mL (3 mL) insulin pen Discontinued 0 units SUBCUT Before meals and at bedtime May 03, 2023 5:09pm May 07, 2023 2:27pm Please contact the information source for Protocol details.Start: 05-03-2023 End: 49-10-2485Fzuknwl Aspart U-100 (Novolog Flexpen U-100 Insulin) 100 unit/mL (3 mL) insulin pen Discontinued 0 units SUBCUT Before meals and at bedtime May 03, 2023 4:09pm May 07, 2023 1:27pm Please contact the information source for Protocol details.Start: 05-03-2023 End: 69-63-9591Svsxjux Aspart U-100 (Novolog Flexpen U-100 Insulin) 100 unit/mL (3 mL) insulin pen Discontinued 0 units SUBCUT Before meals and at bedtime May 03, 2023 4:09pm May 07, 2023 1:27pmStart: 05-03-2023 End: 02-45-5024Yfywlct Aspart U-100 (Novolog Flexpen U-100 Insulin) 100 unit/mL (3 mL) insulin pen Discontinued 0 units SUBCUT Before meals and at bedtime May 03, 2023 5:09pm May 07, 2023 2:27pmStart: 04-28-2023 End: 98-83-9554dnvzvw 8 [IU] by subcutaneous injection once daily before dinner Insulin Aspart U-100 (Novolog Flexpen U-100 Insulin) 100 unit/mL (3 mL) insulin pen Discontinued 8 UNIT SUBCUT once daily before dinner April 27, 2023 11:00pm May 03, 2023 4:10pmStart: 04-28-2023 End: 45-94-3885zmckjz 5 [IU] by subcutaneous injection after breakfastInsulin Aspart U-100 (Novolog Flexpen U-100 Insulin) 100 unit/mL (3 mL) insulin pen Discontinued 5 UNIT SUBCUT After breakfast and lunch April 27, 2023 11:00pm May 03, 2023 4:10pmStart: 04-28-2023 End: 57-02-0578niamri 8 [IU] by subcutaneous injection once daily before dinner Insulin Aspart U-100 (Novolog Flexpen U-100 Insulin) 100 unit/mL (3 mL) insulin pen Discontinued 8 UNIT SUBCUT once daily before dinner April 28, 2023 12:00am May 03, 2023 5:10pmStart: 04-28-2023 End: 95-94-1430zipxia 5 [IU] by subcutaneous injection after breakfastInsulin Aspart U-100 (Novolog Flexpen U-100 Insulin) 100 unit/mL (3 mL) insulin pen Discontinued 5 UNIT SUBCUT After breakfast and lunch April 28, 2023 12:00am May 03, 2023 5:10pmStart: 06-07-7361vqkaqv 8 [IU] by subcutaneous injection once daily before dinnerInsulin Aspart U-100 (Novolog Flexpen U-100 Insulin) 100 unit/mL (3 mL) insulin pen Active 8 UNIT SUBCUT once daily before dinner April 28, 2023 12:00amStart: 89-94-5621ullprg 5 [IU] by subcutaneous injection after breakfastInsulin Aspart U-100 (Novolog Flexpen U-100 Insulin) 100 unit/mL (3 mL) insulin pen Active 5 UNIT SUBCUT After breakfast and lunch April 28, 2023 12:00amInsulin Aspart U-100 (Novolog U-100 Insulin Aspart) 100 unit/mL solution (20 sources)Start: 08-31-2023 End: 07-18-5747Ihfabzo Aspart U-100 (Novolog U-100 Insulin Aspart) 100 unit/mL solution Discontinued 50 UNIT CNTSUBQINF Daily August 31, 2023 12:00am September 05, 2023 2:28pm per insulin pumpStart: 08-31-2023 End: 43-74-7807Nzrtgea Aspart U-100 (Novolog U-100 Insulin Aspart) 100 unit/mL solution Discontinued 50 UNIT CNTSUBQINF Daily August 31, 2023 1:00am September 05, 2023 3:28pm per insulin pumpInsulin Disposable Pump (Omnipod DASH PDM, Gen 4,) kit (20 sources)Start: 05-30-2024 End: 07-06-4108Bvfexum Disposable Pump (Omnipod DASH PDM, Gen 4,) kit 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) Basal: 12A 0.3, 7A 0.4, 9P 0.5, 10 units breakfast, 8 units with lunch, 7 dinner, ISF: 75 1 each 05/30/2024 05/02/2025 Discontinued (Therapy completed) Start: 60-21-5843Lwwunhl Disposable Pump (Omnipod DASH PDM, Gen 4,) kit 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) Basal: 12A 0.3, 7A 0.4, 9P 0.5, 10 units breakfast, 8 units with lunch, 7 dinner, ISF: 75 1 each 05/30/2024 ActiveStart: 25-76-6208Qjdceol Disposable Pump (Omnipod DASH PDM, Gen 4,) kit Indications: Diabetes mellitus secondary to p ancreatic insufficiency (CMS/HCC) Basal: 12A 0.3, 7A 0.4, 9P 0.5, 10 units breakfast, 8 units with lunch, 7 dinner, ISF: 75 1 each 05/30/2024 ActiveStart: 02-04-2023 End: 35-27-5294Uwbjlmc Disposable Pump (Omnipod DASH PDM, Gen 4,) kit Indications: 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) Basal: 12A 0.3, 7A 0.4, 9P 0.5, 6 units breakfast/lunch, 7 dinner, ISF: 75 1 each 02/04/2023 05/30/2024 Discontinued (Reorder)Start: 02-54-3779Mxodefr Disposable Pump (Omnipod DASH PDM, Gen 4,) kit Indications: 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) Basal: 12A 0.3, 7A 0.4, 9P 0.5, 6 units breakfast/lunch, 7 dinner, ISF: 75 1 each 02/04/2023 Activeinsulin regular (HUMULIN R;NOVOLIN R) 100 Units in sodium chloride 0.9 % 100 mL infusion (1 source)Start: 01-02-2022 End: 02-25-0060uicvxim regular (HUMULIN R;NOVOLIN R) 100 Units in sodium chloride 0.9 % 100 mL infusioniohexol (OMNIPAQUE 240) injection 100 mL (1 source)Start: 01-05-2022 End: 62-57-6326voqlmsn (OMNIPAQUE 240) injection 100 mL10 ml iron sucrose 20 mg/ml injection (20 sources)Parenteral Iron ReplacementStart: 02-18-2024 End: 25-32-1289Mlwr Sucrose (Venofer) 200 mg iron/10 mL solution Discontinued 100 MG IV 3 Times a week 0 February 18, 2024 12:00am March 15, 2024 10:49am administer over 30 minslactobacillus acidophilus [id number] unt oral capsule (20 sources)Start: 08-31-2023 End: 12-60-6746tfud 10 capsules by mouth once dailyLactobacillus Acidophilus (Probacap) 10 billion cell capsule Discontinued 100 MMU CELLS PO Daily August 31, 2023 1:00am September 05, 2023 3:28pm End: 86-81-1233Shgbszaisqodp (Probiotic Acidophilus) capsule 1 capsule 1 (one) time each day at the same time. 05/02/2025 Discontinued (Therapy completed) lidocaine hydrochloride 10 mg/ml injectable solution (20 sources)Antiarrhythmic, Amide Local AnestheticStart: 05-03-2023 End: 83-27-0357Uhmvujpbi Hcl (Xylocaine) 10 mg/mL (1 %) Solution Discontinued 0.1 ML INTRADERMA Pre-Op as needed for Venipuncture x 1 Dose 0 0 May 03, 2023 12:00am May 03, 2023 5:10pmlisinopril 2.5 mg oral tablet (20 sources)Angiotensin Converting Enzyme InhibitorStart: 03-27-2024 End: 51-28-7797bxsn 1 tablet by mouth once daily in the morningLisinopril 2.5 mg tablet Discontinued 2.5 MG PO Every morning May 16, 2024 1:00am April 06, 2025 9:44amloratadine 10 mg oral tablet (20 sources)Start: 10-26-2023 End: 32-53-3107ecnh 1 tablet by mouth once dailyloratadine (Claritin) 10 MG tablet Take 1 tablet by mouth Daily 10/26/2023 05/02/2025 Discontinuedtake 1 tablet by mouth every twenty-four hoursClaritin 10 MG 1 tablet Orally Once a day Activemagnesium hydroxide 80 mg/ml oral suspension (20 sources)Start: 05-03-2023 End: 64-02-9688zdyb 1 mL by mouth twice daily as needed for constipation Magnesium Hydroxide (Milk Of Magnesia) 400 mg/5 mL Suspension Discontinued 30 ML PO Twice daily as needed for Constipation 0 0 May 03, 2023 12:00am May 07, 2023 2:27pmStart: 05-03-2023 End: 90-91-2249ecjm 1 mL by mouth twice daily as needed for constipation Magnesium Hydroxide (Milk Of Magnesia) 400 mg/5 mL Suspension Discontinued 30 ML PO Twice daily as needed for Constipation 0 May 03, 2023 12:00am May 07, 2023 2:27pmStart: 05-03-2023 End: 30-74-1999subk 1 mL by mouth twice daily as needed for constipation Magnesium Hydroxide (Milk Of Magnesia) 400 mg/5 mL Suspension Discontinued 30 ML PO Twice daily as needed for Constipation 0 May 02, 2023 11:00pm May 07, 2023 1:27pmStart: 05-03-2023 End: 79-14-7678ppeh 1 mL by mouth twice dailyMagnesium Hydroxide (Milk Of Magnesia) 400 mg/5 mL Suspension Discontinued 30 ML PO Twice daily 0 May 02, 2023 11:00pm May 07, 2023 1:27pmStart: 05-03-2023 End: 14-79-4310kybv 1 mL by mouth twice dailyMagnesium Hydroxide (Milk Of Magnesia) 400 mg/5 mL Suspension Discontinued 30 ML PO Twice daily 0 May 03, 2023 12:00am May 07, 2023 2:27pmStart: 17-72-4178zzpv 1 mL by mouth twice dailyMagnesium Hydroxide (Milk Of Magnesia) 400 mg/5 mL Suspension Active 30 ML PO Twice daily 0 2022 12:00ammagnesium oxide 400 mg oral tablet (1 source)Start: 01-07-2022 End: 77-03-0321atrlbozhi oxide (MAG-OX) tablet 400 mg50 ml magnesium sulfate 40 mg/ml injection (1 source)Start: 01-05-2022 End: 15-98-3580xaphetulz sulfate 2000 mg in 50 mL IVPB premixmethocarbamol (ROBAXIN) 750 mg in dextrose 5 % 100 mL IVPB (1 source)Start: 01-02-2022 End: 77-82-1249864 mg, IntraVENous, at 200 mL/hr, Administer over 30 Minutes, EVERY 6 HOURS, First dose on Wed01/02/22 at 2300metroNIDAZOLE 500 mg oral tablet (20 sources)Nitroimidazole AntimicrobialStart: 09-05-2023 End: 11-17-1902lrll 1 tablet by mouth three times dailyMetronidazole 500 mg Tablet Discontinued 500 MG PO Three times daily 36 12 0 September 05, 2023 1:0 0am October 21, 2023 8:41amMultiple Vitamins-Minerals (Centrum Silver 50+Men) tablet (20 sources) End: 85-07-0644ully 1 tablet by mouth once dailyMultiple Vitamins-Minerals (Centrum Silver 50+Men) tablet Take 1 tablet by mouth 1 (one) time each day. 05/02/2025 Discontinuedtake 1 tablet by mouth once dailyMultiple Vitamins- Minerals (Centrum Silver 50+Men) tablet Take 1 tablet by mouth 1 (one) time each day. JpwfanHathvkqtvmgh-Tpemqvkr-Adavik (Multivitamin 50 Plus) tablet (20 sources)Start: 08-31-2023 End: 31-24-6923Kkjqjnqlvfis-Minerals-Lutein (Multivitamin 50 Plus) tablet Discontinued 1 TAB PO Daily August 31, 2023 1:00am February 08, 2024 1:25pm On Hold: duplicateStart: 08-31-2023 End: 49-74-4202Bzaimdtokioh-Minerals-Lutein (Multivitamin 50 Plus) tablet Discontinued 1 TAB PO Daily August 31, 2023 12:00am February 08, 2024 12:25pm On Hold: duplicateStart: 08-31-2023 End: 67-69-5074Hvyxrnqgcszp-Minerals-Lutein (Multivitamin 50 Plus) tablet Discontinued 1 TAB PO Daily August 31, 2023 12:00am February 08, 2024 12:25pm Start: 08-31-2023 End: 00-20-7873Nauewbybqyqg-Minerals-Lutein (Multivitamin 50 Plus) tablet Discontinued 1 TAB PO Daily August 31, 2023 1:00am February 08, 2024 1:25pm Start: 51-15-3908Uocqxofjtjcq-Minerals-Lutein (Multivitamin 50 Plus) tablet Active 1 TAB PO Daily August 31, 2023 1:00amnitroglycerin 0.4 mg sublingual tablet (20 sources)Nitrate VasodilatorStart: 05-03-2023 End: 09-02-1121Qxroqpkrquywp 0.4 mg tablet, sublingual Discontinued 0.4 MG SUBLINGUAL Q5M as needed for chest pain30 2 July 16, 2023 1:00am September 05, 2023 3:28pm until response; do not exceed 3 doses per eventNitroglycerin 0.4 MG as directed Sublingual Activeomeprazole 20 mg delayed release oral capsule (20 sources)Proton Pump InhibitorStart: 05-16-2024 End: 09-04-0217yyed 1 capsule by mouth twice dailyOmeprazole 20 mg capsule,delayed release(DR/EC) Discontinued 20 MG PO Twice daily May 16, 2024 1:00am August 31, 2024 11:10amStart: 04-05-2024 End: 77-28-4831Xszcpftrge Magnesium 20 mg tablet Take 20 mg by mouth. 04/05/2024 04/05/2025 Activepantoprazole 40 mg oral granules (20 sources)Proton Pump InhibitorStart: 02-08-2024 End: 82-60-6554kydk 40 mg by mouth twice dailyPantoprazole (Protonix) [address] for susp in packet Discontinued 40 MG PO Twice daily 180 90 0 February 08, 2024 12:00am February 15, 2024 10:08amStart: 11-11-2023 End: 18-79-2436cdot 1 tablet by mouth once daily, then take 1 tablet by mouth once dailyPantoprazole (Protonix) 40 mg tablet,delayed release (DR/EC) Discontinued 40 MG PO Daily 180 90 0 November 11, 2023 1:22pm February 08, 2024 1:25pm 40 mg p.o. twice daily x 2 weeks, followed by 40 mg p.o. daily. Please dispense accordingly.Start: 09-03-2023 End: 83-91-1247owyk 1 tablet by mouth twice daily, then take 1 tablet by mouth once dailyPantoprazole (Protonix) 40 mg tablet,delayed release (DR/EC) Discontinued 40 MG PO Twice daily 180 90 0 February 08, 2024 1:22pm May 16, 2024 1:54pm 40 mg p.o. twice daily x 2 weeks, followed by 40 mg p.o. daily. Please dispense accordingly.Start: 99-07-1290ciqf 1 tablet by mouth once daily before breakfastpantoprazole (PROTONIX) 40 MG tablet Take 1 tablet by mouth every morning (before breakfast) 90 tablet 1 01/07/2022 ActiveStart: 01-07-2022 take 1 tablet by mouth once daily before breakfastpantoprazole (PROTONIX) 40 MG tablet Take 1 tablet by mouth every morning (before breakfast) 90 tablet 1 01/07/2022 Active End: 74-40-6010dxtu 1 tablet by mouth before mealtimepantoprazole (ProtoNix) 40 MG EC tablet Take 40 mg by mouth in the morning. Take before meals. Do not crush, chew, or split. 05/02/2025 Discontinuedpiperacillin-tazobactam (ZOSYN) 3,375 mg in dextrose 5 % 50 mL IVPB (mini-bag) (2 sources)Start: 01-02-2022 End: 71-83-4162yywdgvgmhbce-tazobactam (ZOSYN) 3,375 mg in dextrose 5 % 50 mL IVPB (mini-bag)Start: 01-02-2022 End: 08-58-2942lxjsaqvshyhb-tazobactam (ZOSYN) 3,375 mg in dextrose 5 % 50 mL IVPB (mini-bag)potassium bicarbonate 20 meq effervescent oral tablet (1 source)Start: 01-07-2022 End: 33-71-0222dysbrvdzj bicarb-citric acid (EFFER-K) effervescent tablet 40 mEq microencapsulated potassium chloride 20 meq extended release oral tablet (20 sources)Start: 05-03-2023 End: 33-68-2988Pecwtxkgd Chloride (Klor-Con M20) 20 mEq Tablet,Er Particles/Crystals Discontinued 40 MEQ PO STAT as needed for Hypokalemia 0 0 May 03, 2023 12:00am May 03, 2023 5:10pmStart: 01-06-2022 End: 82-09-6444aydenevpx chloride (KLOR-CON M) extended release tablet 40 mEq Start: 01-05-2022 End: 68-53-9368csoejpbor chloride 10 mEq/100 mL IVPB (Peripheral Line)potassium phosphate 155 mg / sodium phosphate, dibasic 852 mg / sodium phosphate, monobasic 130 mg oral tablet (1 source)Start: 01-07-2022 End: 63-36-3809gznqofacwn (K PHOS NEUTRAL) tablet 1 tabletpotassium phosphate 15 mmol in dextrose 5 % 250 mL IVPB (1 source)Start: 01-05-2022 End: 94-44-7953onppkduxk phosphate 15 mmol in dextrose 5 % 250 mL IVPBsacubitril 24 mg / valsartan 26 mg oral tablet (20 sources)Angiotensin 2 Receptor BlockerStart: 05-16-2024 End: 89-49-1078vnee 1 tablet by mouth twice dailySacubitril-Valsartan (Entresto) 24-26 mg tablet Discontinued 1 TAB PO Twice daily May 16, 2024 1:00am June 16, 2024 7:21pmStart: 02-08-2024 End: 33-39-3603knaj 1 tablet by mouth twice dailySacubitril-Valsartan (Entresto) 24-26 mg Tablet Discontinued 1 TAB PO Twice daily 180 90 0 February 08, 2024 12:00am March 27, 2024 11:05am On Hold: hypotension End: 57-50-8170iezq 1 tablet by mouth in the morningsacubitril-valsartan (Entresto) 24-26 MG tablet Take 1 tablet by mouth in the morning and 1 tablet b efore bedtime. 04/17/2024 Discontinued (Therapy completed)Sennosides (Senna Laxative) 8.6 mg Tablet (20 sources)Start: 05-03-2023 End: 57-92-4920jhkf 2 tablets by mouth at bedtime as needed for constipation Sennosides (Senna Laxative) 8.6 mg Tablet Discontinued 2 TAB PO Bedtime as needed for constipation 0 May 03, 2023 12:00am May 03, 2023 5:10pm Start: 05-03-2023 End: 85-38-6551dzwu 2 tablets by mouth at bedtime as needed for constipation Sennosides (Senna Laxative) 8.6 mg Tablet Discontinued 2 TAB PO Bedtime as needed for constipation 0 May 02, 2023 11:00pm May 03, 2023 4:10pm Start: 05-03-2023 End: 39-03-7781phwu 2 tablets by mouth at bedtimeSennosides (Senna Laxative) 8.6 mg Tablet Discontinued 2 TAB PO Bedtime 0 May 02, 2023 11:00pm May 03, 2023 4:10pmStart: 05-03-2023 End: 48-52-5467ybqf 2 tablets by mouth at bedtimeSennosides (Senna Laxative) 8.6 mg Tablet Discontinued 2 TAB PO Bedtime 0 May 03, 2023 12:00am May 03, 2023 5:10pmStart: 95-08-6676jgeo 2 tablets by mouth at bedtimeSennosides (Senna Laxative) 8.6 mg Tablet Active 2 TAB PO Bedtime 0 May 03, 2023 12:00amsennosides, fci 8.6 mg oral tablet (3 sources)Start: 05-03-2023 End: 85-92-0958anzl 2 tablets by mouth at bedtime as needed for constipation Sennosides (Senna Laxative) 8.6 mg Tablet Discontinued 2 TAB PO Bedtime as needed for constipation 0 0 May 03, 2023 12:00am May 03, 2023 5:10pm sucralfate 1000 mg oral tablet (20 sources)Aluminum ComplexStart: 02-08-2024 End: 68-21-7037eojh 1 tablet by mouth every six hoursSucralfate 1 gram Tablet Discontinued 1 GM PO Every 6 hours 360 90 0 February 08, 2024 12:00am April 26, 2024 10:28amStart: 01-09-1307wdsw 10 mL by mouth four times daily sucralfate (CARAFATE) 1 GM/10ML suspension Take 10 mLs by mouth 4 times daily 1200 mL 3 01/07/2022 ActiveStart: 26-23-9337cetm 10 mL by mouth four times daily sucralfate (CARAFATE) 1 GM/10ML suspension Take 10 mLs by mouth 4 times daily 1200 mL 3 01/07/2022 ActiveStart: 02-65-7621fveiannkgr (CARAFATE) 1 GM/10ML suspension 1 gtetracycline hydrochloride 500 mg oral capsule (20 sources)Tetracycline-class AntimicrobialStart: 09-06-2023 End: 33-45-5393bsub 1 capsule by mouth four times dailyTetracycline 500 mg capsule Discontinued 500 MG PO Four times daily 112 0 September 06, 2023 1:00am October 21, 2023 8:42amStart: 09-05-2023 End: 30-13-4920ezqo 1 capsule by mouth four times dailyTetracycline 250 mg Capsule Discontinued 500 MG PO Four times daily 112 14 0 September 05, 2023 1:0 0am October 21, 2023 8:42amStart: 09-05-2023 End: 43-96-5164krry 500 mg by mouth four times dailyTetracycline Discontinued 500 MG PO Four times daily 112 14 September 05, 2023 12:00am October 7:42amticagrelor 90 mg oral tablet (20 sources)Start: 07-16-2023 End: 70-18-1810pufz 1 tablet by mouth twice dailyTicagrelor (Brilinta) 90 mg tablet Discontinued 90 MG PO Twice daily 180 3 July 16, 2023 1:00amFebruary 2023 3:28pmtriamcinolone acetonide 1 mg/ml topical cream (20 sources)CorticosteroidStart: 05-03-2023 End: 77-22-3471Aifgwosqpgivg Acetonide 0.1 % Cream Discontinued 1 APPLIC TOPICAL Four times daily as needed for Irritation 15 0 May 07, 2023 12:00am October 28, 2023 10:38amStart: 48-39-5339Scgejwb -40 mg Apr, 40 mg Triamcinolone Acetonide 0.1 % 1 application Externally Two times a Week Active Triamcinolone Acetonide 0.1 % 1 application Externally Two times a Week Active valsartan 80 mg oral tablet (20 sources)Angiotensin 2 Receptor BlockerStart: 10-28-2023 End: 79-02-8305fdde 1 tablet by mouth once dailyValsartan 80 mg tablet Discontinued 80 MG PO Daily 90 90 1 October 28, 2023 12:00am February 08, 2024 1:25pmStart: 09-03-2023 End: 06-35-5912Qqajlfady 160 mg Tablet Discontinued 80 MG PO Daily 30 30 0 September 03, 2023 11:53am October 2:46pmStart: 09-03-2023 End: 93-68-0930igmp 80 mg by mouth once dailyValsartan Discontinued 80 MG PO Daily 30 30 September 03, 2023 10:53am October 28, 2023 1:46pmStart: 05-07-2023 End: 57-48-2042fmfu 1 tablet by mouth once dailyValsartan 160 mg Tablet Discontinued 160 MG PO Daily 30 30 0 May 07, 2023 12:00am September 05, 2023 3:28pmStart: 05-03-2023 End: 95-02-8631uqyc 1 tablet by mouth once dailyValsartan 80 mg Tablet Discontinued 80 MG PO Daily 0 0 May 03, 2023 12:00am May 07, 2023 2:27pm Problems Active Problems Problem ClassificationProblemDateDocumented DateEpisodic/ChronicAcute and unspecified renal failure (2 sources)Acute renal failure syndromeOnset: [id number] myocardial infarction (20 sources)Myocardial infarction; Translations: [Non-ST elevation (NSTEMI) myocardial infarction]Onset: 890485-55-3035WogidttKadqoupqxufxxu/social admission (20 sources)Other reduced mobility; Translations: [Impaired mobility and activities of daily living]24-16-5323TyncwfdbGwvhubw on above:Problem List clean-up per request of Phys. EHR CmteAnxiety disorders (20 sources)Mixed anxiety and depressive disorder; Translations: [Anxiety disorder, unspecified]Onset: 01-08-2023 Resolved: 645014-90-8107HydomemJhvdhly dysrhythmias (20 sources)Paroxysmal ventricular tachycardia; 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]93-69-3170PgummpqScbebkz on above:Problem List clean-up per request of Phys. EHR CmteChronic kidney disease (2 sources)Chronic kidney diseaseOnset: 608257-44-4095FtmadlgDrnaytn obstructive pulmonary disease and bronchiectasis (15 sources)Acute exacerbation of chronic obstructive airways disease; Translations: [Chronic obstructive pulmonary disease with (acute) exacerbation] Onset: 218362-95-4981AyxqoovIhycbbm obstructive pulmonary disease and bronchiectasis (4 sources)Bronchitis; Translations: [Bronchitis, not specified as acute or chronic]30-10-9403HpggeydsByjbbsbtbt disorders (20 sources)H/O: cardiac pacemaker in situ; Translations: [Presence of automatic (implantable) cardiac defibrillator]Onset: 688454-56-8772Horbbid Congestive heart failure; nonhypertensive (20 sources)Acute on chronic systolic heart failure; Translations: [Acute on chronic systolic (congestive) heart failure]Onset: 108506-19-8038Ewpocws Coronary atherosclerosis and other heart disease (20 sources)Double coronary vessel disease; Translations: [Atherosclerotic heart disease of [place] coronary artery without angina pectoris]Onset: 01-31-2019 01-65-0495VzlgztbLuokvsg on above:Problem List clean-up per request of Phys. EHR CmteCoronary atherosclerosis and other heart disease (20 sources)Patient post percutaneous transluminal coronary angioplasty; Translations: [Coronary angioplasty status]24-74-0688QckltbshTgvrzscglz and other anemia (20 sources)Anemia; Translations: [Anemia, unspecified]72-13-0376BqxliwndIjqgynk on above:Problem List clean-up per request of Phys. EHR CmteOutside Source Comment: Comment on above: Problem List clean-up per request of Phys. EHR Cmte Deficiency and other anemia (3 sources)Anemia, unspecified; Translations: [Anemia, unspecified]05-08-2023 EpisodicDiabetes mellitus without complication (20 sources)Insulin pump present; Translations: [Presence of insulin pump (external) (internal)]Onset: 115531-41-7862BetwbrktQmdqctfxy of lipid metabolism (20 sources)Mixed hyperlipidemia; Translations: [Mixed hyperlipidemia]Onset: 279862-73-1349VhxfeopQfwyynybmu disorders (20 sources)Lewis's esophagus; 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]96-75-2645XyonbviXpeiiivzq hypertension (20 sources)Hypertensive disorder; Translations: [Essential (primary) hypertension]Onset: 337451-75-8365FvwqklnEcgvugdy of upper limb (1 source)Other fracture of upper end of left radius, initial encounter for closed fracture; Translations: [Other fracture of upper end of left radius, initial encounter for closed fracture]Onset: 20-15-9291KuqmktmyAdlkivwxbubsih ulcer (except hemorrhage) (20 sources)Perforation of stomach; Translations: [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]Onset: 01-06-2022 Resolved: 78-73-2476EerynojLstjgpo on above:previous rupture with repair.Outside Source Comment: previous rupture with repair.Gastroduodenal ulcer (except hemorrhage) (20 sources)Acute gastric ulcer with perforation; Translations: [Acute gastric ulcer with perforation]Onset: 67-72-5070NpbiehhtJaiuskjadzzdrmqc hemorrhage (20 sources)Melena; Translations: [Melena]77-62-3167UkhozeavKclhpwqxquomr symptoms and ill-defined conditions (20 sources)Hematuria, unspecified; Translations: [Blood in urine]Onset: 06-05-2022 Resolved: 52-32-1467JvckyvmwIxrwq valve disorders (20 sources)Non-rheumatic mitral regurgitation ; Translations: [Nonrheumatic mitral (valve) insufficiency]Onset: 577701-84-1708ZtxepsoVjuwfgdedek of prostate (20 sources)Benign prostatic hyperplasia; Translations: [Benign prostatic hyperplasia without lower urinary tract symptoms]Onset: ChronicHypertension with complications and secondary hypertension (2 sources)Hypertensive heart disease with congestive heart failure; Translations: [Hypertensive heart diseasewith heart failure]74-25-0035Brouzac Intestinal infection (20 sources)Infection caused by Helicobacter pylori; Translations: [Other specified bacterial intestinal infections]88-67-6347OqbbzkdhBekt disorders (20 sources)Moderate major depression, single episode; Translations: [Major depressive disorder, single episode, moderate]Onset: hronic Nonspecific chest pain (1 source)Chest pain, unspecified; Translations: [Chest pain, unspecified]Onset: 78-73-8185LenjeztmEluqoygdhib deficiencies (20 sources)Deficiency of macronutrients; Translations: [Mild protein-calorie malnutrition]00-93-7902HciynopWidpfatcldmn (20 sources)Osteoporosis; Translations: [Age-related osteoporosis without current pathological fracture]06-81-7551SfxtlykVnbvyan on above:Problem List clean-up per request of Phys. EHR CmteOutside Source Comment: Comment on above: Problem List clean-up per request of Phys. EHR CmteOther aftercare (2 sources)Post-discharge follow-up; Translations: [Encounter for follow-up examination after completed treatment for conditions other than malignant neoplasm]40-17-4011NbpeyiniUjxpb aftercare (2 sources)Encounter for follow-up examination after completed treatment for conditions other than malignant neoplasm; Translations: [Unspecified follow-up examination]53-19-8194SdnpufduMrrlu and ill-defined heart disease (20 sources)Left ventricular systolic dysfunction; Translations: [Other ill- defined heart diseases]20-48-9369PpixnzmQlcthqr on above:Problem List clean-up per request of Phys. EHR CmteOther and ill-defined heart disease (7 sources)Other ill-defined heart diseases; Translations: [Heart disease, unspecified]70-89-5126DaowwkzLfshn and ill-defined heart disease (3 sources)Mild left ventricular systolic dysfunction; Translations: [Other ill- defined heart diseases]91-88-5139RnwwjkxUvqhgex on above:Problem List clean-up per request of Phys. EHR CmteOther circulatory disease (4 sources)Orthostatic hypotension; Translations: [Orthostatic hypotension] 51-02-9804SgavggbrDwmdh connective tissue disease (4 sources)Dupuytren contracture of right palm; Translations: [Palmar fascial fibromatosis [Dupuytren]]EpisodicOther diseases of kidney and ureters (3 sources)Hydronephrosis; Translations: [Unspecified hydronephrosis]Onset: 13-46-5891YdujmbdrEouux fractures (20 sources)Fracture of spinous process of cervical vertebra; Translations: [Fracture of neck, unspecified, initial encounter]00-83-3957JjarywmwPzrhk fractures (20 sources)Fracture of cervical spine; Translations: [Fracture of neck, unspecified, initial encounter]04-13-3675XyicoqrgCbgwz fractures (20 sources)Closed fracture of vertebral column; Translations: [Closed fracture of vertebra]83-00-8203XmkyrexlKlmtf fractures (20 sources)Closed fracture of fifth cervical vertebra; Translations: [Unspecified displaced fracture of fifth cervical vertebra, initial encounter for closed fracture]19-92-7698XyvwnvfeUxfif fractures (2 sources)Unspecified displaced fracture of fifth cervical vertebra, initial encounter for closed fracture; Translations: [Closed fracture of fifth cervical vertebra]95-43-8443GnepdxubIdelm gastrointestinal disorders (2 sources)Viscus structure finding; Translations: [Other specified symptoms and signs involving the digestivesystem and abdomen]Onset: 22-12-2148UharbotqXzdic lower respiratory disease (2 sources)Orthopnea; Translations: [Orthopnea]Onset: 286326-45-5132 EpisodicOther lower respiratory disease (1 source)Orthopnea; Translations: [Orthopnea]Onset: 33-16-0456IgslwpfyBwpjm lower respiratory disease (9 sources)Pleuritic pain; Translations: [Pleurodynia]40-67-8593RhtftlzhUtunw lower respiratory disease (2 sources)Lower respiratory tract infection; Translations: [Unspecified acute lower respiratory infection]48-66-0067HadowasrOncvo nervous system disorders (6 sources)Carpal tunnel syndrome; Translations: [Carpal tunnel syndrome, left upper limb]90-20-8785DdqbldsSrfui nervous system disorders (7 sources)Other acute postprocedural pain; Translations: [Pain in joint, pelvic region and thigh]28-88-8522FihfamcbKaqhq nutritional; endocrine; and metabolic disorders (1 source)Hypomagnesemia; Translations: [Hypomagnesemia]Onset: 04-27-4106Avgdccx Other screening for suspected conditions (not mental disorders or infectious disease) (20 sources)Raised cardiac enzyme or marker; Translations: [Other specified abnormal findings of blood chemistry]Onset: 316860-47-1464TasdqgebPgafgdj on above:Problem List clean-up per request of Phys. EHR CmtePancreatic disorders (not diabetes) (20 sources)Pancreatic insufficiency; Translations: [Other specified diseases of pancreas]Onset: 554411-53-6994RomazqciPdakfntsok and visceral atherosclerosis (2 sources)Arteriosclerotic vascular diseaseOnset: hronic Peritonitis and intestinal abscess (17 sources)Abdominal -47-4841FivpbzjwSauylbqm; pneumothorax; pulmonary collapse (4 sources)Pleurisy; Translations: [Pleurisy]93-47-0999EkrljvnqAagcmqlri heart disease (20 sources)Pulmonary arterial hypertension; Translations: [Secondary pulmonary arterial hypertension]Onset: 897110-32-6538JcfkqwuRainryio codes; unclassified (20 sources)Disorder of pancreas; 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]Onset: 61-71-7486TrctpvaYnmanssb codes; unclassified (20 sources)History of pancreatectomy; 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]52-88-6940EdvpbmlIakwtkfb codes; unclassified (4 sources)Acquired total absence of pancreas; 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]66-19-5031NilgkraBssmjono codes; unclassified (2 sources)Body mass index 20-24 - normal; Translations: [Body mass index (BMI) 20.0-20.9, adult]Onset: 095633-08-8088KakjqnhaThtbisoqbnwe (1 source)CONTACT W/AND (SUSP) EXPOS COVID-19; Translations: [CONTACT W/AND (SUSP) EXPOS COVID-19]Onset: 37-22-9963Sglqdurxozho (1 source)I25.10 - Atherosclerotic heart disease of [place] coronary artery without angina pectoris,I25.5 - Ischemic cardiomyopathy,R06.00 - Dyspnea, unspecified Unclassified (2 sources)Patient encounter epiyxx67-29-3369Bgueawopwzwp (1 source)High Blood SugarOnset: 10-26-2024 Past or Other Problems Problem ClassificationProblemDateDocumented DateEpisodic/ChronicAbdominal pain (3 sources)Upper abdominal pain, unspecified; Translations: [UPPER ABDOMINAL PAIN, UNSPECIFIED]Onset: 01-39-5701FlqggpjaYwijsry dysrhythmias (20 sources)Bradycardia; Translations: [Bradycardia, unspecified]Onset: 382628-42-9646AjgnqlmbRgfwttzter and other anemia (1 source)Iron deficiency anemia, unspecified; Translations: [Iron deficiency anemia, unspecified]Onset: 54-73-4149NimhugjuDhpyjbzz mellitus with complications (20 sources)Diabetes mellitus; Translations: [Uncontrolled diabetes mellitus] Onset: 05-02-2023 Resolved: 821600-94-9016MdnokxaWruzyhm on above:Problem List clean-up per request of Phys. EHR CmteDiabetes mellitus without complication (20 sources)Secondary diabetes mellitus; Translations: [Diabetes mellitus due to underlying condition without complications]Onset: 01-02-2022 Resolved: 07-78-3864NnrzcynHgekyth on above:type 1- insulin pump in place. Outside Source Comment: Comment on above: Problem List clean-up per request of Phys. EHR CmteFracture of neck of femur (hip) (20 sources)Closed intertrochanteric fracture; Translations: [Displaced intertrochanteric fracture of right femur, initial encounter for closed fracture]Onset: 05-25-2023 Resolved: 880329-15-2209XifpfyevFgchkzm on above:Problem List clean-up per request of Phys. EHR CmteImmunizations and screening for infectious disease (20 sources)Needs influenza immunization; Translations: [Encounter for immunization]Onset: 05-19-2023 Resolved: 606481-26-1712BiqcbwsjVixw disorders (20 sources)Mood disordersOnset: 934562-12-9565Eycfvovsd of unspecified nature or uncertain behavior (20 sources)Benign neoplasm of pancreas; Translations: [Neoplasm of unspecified behavior of digestive system]Onset: 06-23-2018 Resolved: 298301-67-4701TfppcevuUsqvdbwzwsh deficiencies (20 sources)Iron deficiency; Translations: [Iron deficiency]Onset: 06-16-2024 87-79-4241CqgyvxzaHvzra connective tissue disease (20 sources)Dupuytren's contracture; Translations: [Palmar fascial fibromatosis [Dupuytren]]Onset: 02-05-2023 Resolved: 277398-01-2792IdnasmvnYaieu connective tissue disease (20 sources)Pain of right thigh; Translations: [Pain in right thigh]Onset: 05-19-2023 Resolved: 728520-18-1647NuwttneoMrxcp fractures (20 sources)Closed fracture of fourth cervical vertebra; Translations: [Unspecified nondisplaced fracture of fourth cervical vertebra, subsequent encounter for fracture with routine healing]Onset: 09-09-2023 Resolved: 725246-05-6082EoyrddebHymqr lower respiratory disease (20 sources)Other nonspecific abnormal finding of lung field; Translations: [Other nonspecific abnormal findingof lung field]Onset: 02-05-2023 Resolved: 141683-28-3600QvfztgckAcxzz lower respiratory disease (6 sources)Pleurodynia; Translations: [Painful respiration]Onset: 07-16-2024 33-21-4474JjkgkcxeXvkvl nervous system disorders (20 sources)Carpal tunnel syndrome of left wrist; Translations: [Carpal tunnel syndrome, left upper limb]Onset: 02-28-2024 Resolved: 661058-14-4987WalhvlkLfdkz nervous system disorders (20 sources)Hip pain; Translations: [Other acute postprocedural pain]Onset: 05-26-2023 Resolved: 211218-04-4183AynbzgkkXvkaeon on above:Problem List clean-up per request of Phys. EHR CmtePathological fracture (20 sources)Fracture of bone of hip region; Translations: [Age-related osteoporosis with current pathological fracture, unspecified femur, sequela] Onset: 05-19-2023 Resolved: 191859-77-5287ElpdjqfmRjkjfsmav (except that caused by tuberculosis or sexually transmitted disease) (2 sources)Bilateral pneumoniaOnset: 568920-24-5912NbxilvejUvgjttlm codes; unclassified (2 sources)Body mass index (BMI) 20.0-20.9, adult; Translations: [Body mass index (BMI) 20.0-20.9, adult]Onset: 83-11-1830FpvvlrpuZkiwmelvxc (except in labor) (20 sources)Sepsis due to Escherichia coli; Translations: [Sepsis due to Escherichia coli [E. coli]]Onset: 05-02-2023 Resolved: 132971-87-4661AalhocltJumd and subcutaneous tissue infections (20 sources)Abscess of abdominal wall; Translations: [Cutaneous abscess of abdominal wall]Onset: 06-19-2024 Resolved: 642691-15-8182EnnmqquqWqtufsrch-qbhiqlg disorders (20 sources)Smoker; Translations: [Nicotine dependence, unspecified, uncomplicated]Onset: 2018 Resolved: 406994-82-4471LcpyuqcDqmznadbyypm (2 sources)Onset: 05-25-2023 Resolved: Results Test NameValueInterpretationReference RangeFacilityC Urineon 04-38-0429Zueyfvlm identified Cx Nom (U)Microbiology PROCEDURE: Urine Culture [...] Locations R1: This test was performed at: [facility], [address] [place] [address], [address]- , , FdqqmpSxqzpbProMedica Memorial HospitalComment on above:Performed By: #### [id number] #### [facility] [address] [place] [id number] Clinical Summaryon 10-37-5881BK Clinical SummaryED Clinical Summary [address] [address] ED Clinical Summary Person Information Name: MANOLO ROCHE [facility] Age: 89 Years : 1935 Sex: Male Language: Dominican PCP: SALVADOR NARANJO DO Marital Status: Visit [...] 05/17/2025 12:34:28 05/17/2025 12:34:28 05/17/2025 12:34:28 ADDRESS: [address] [place] [id number] PHYS DOC NOTES: MEDICAL INFORMATION: Prescriptions Given: New Medications [id number], [address], [place] [id number], [phone] phenazopyridine (Pyridium 200 mg Tab) 1 Tablets By Mouth 3 times a day for 2 Days. Refills: 0. Medications to Continue Taking That Have Changed [id number], [address], [place] [id number], [phone] START: cephalexin (Keflex 500 mg Cap) 1 [...] With: Address: Devin: Tristan GORDON, [address], [address] [address] Business (1) In 3 days 05/20/2025 DIAGNOSIS: Bacterial infection, unspecified; UTI (urinary tract infection), bacterialNormal [facility] CenterED Note-Physicianon 74-83-7665XA Note-PhysicianED Note-Physician Basic Information Time Seen: Evonne [...] day(s), # 10 cap(s), Refills(s) 0, Pharmacy: [id number], 177, cm, 05/17/25 10:58:00 EST, Height/Length Dosing, 61.7, kg, 05/17/25 10:58:00 EST,Weight Dosing phenazopyridine, 200 mg = 1 tab(s), Oral, TID, X 2 day(s), # 6 tab(s), Refills(s) 0, Pharmacy: [facility]/pharmacy [id number], 177, cm, 05/17/25 10:58:00 EST, [...] JULIO In 3 days 05/20/2025 EST [address] [facility]ARK[facility] [address] [place], [place] [address] [facility] [place] (1) Additional Instructions: Patient Education Urinary Tract [...] made to ensure accuracy, however, inadvertently computerized communication spec mistakes may be present. Appropriate healthcare PPE [...] capsule, Oral, q24hr atorvastat (more content not included)...[facility] Comment on above:Result Comment: Electronically Signed By: Chao Douglass PA-C\.br\Date and Time Signed: 05/17/2512:33 EST\.br\Electronically Co-Signed By: Mely Rollins M.D.\.br\Date and Time Co-Signed: 05/17/25 17:40 ESTED Patient Summaryon 19-58-7337KV Patient SummaryED Patient Summary [place] [id number] Patient Discharge Instructions Person Information Name: MANOLO ROCHE Age: 89 Years Arrival Date: 05/17/2025 10:44:24 Discharge Diagnosis: Bacterial infection, unspecified; UTI (urinary tract infection), bacterial Primary Care Physician: SAVLADOR NARANJO DO Provider Information Primary Provider: Mely Rollins M.D. [employer] Equipment Mechanic:Chao Douglass PA-C The exam and treatment you received in the Emergency Department were for an urgent problem and are not intended as complete care. It is important that you follow up with a doctor, nurse practitioner,or physician???s real estate assistant for ongoing care. If your symptoms become worse or you do not improve asexpected and you are unable to reach your usual health care provider, you should return to the Emergency Department. We are available 24 hours a day. MANOLO ROCHE has been given the following list of patient education materials, prescriptions and follow-up instructions: Follow-up Instructions: With: Address: When: Tristan MELCHOR [address] [place] [address], [address], [address] [address] Business (1) In 3 days 05/20/2025 In the event that this physician does not participate in your insurance network, please consult with your insurance company to find a nearby participating provider. Patient Education Materials: Urinary Tract Infection, Adult A MESSAGE TO ALL PATIENTS REGARDING OPIOIDS PRESCRIPTION OPIOIDS: WHAT YOU NEED TO KNOW Prescription opioids can be used to help relieve sardolxj-cl-itnoum pain and are often prescribed following a [...] overdose. ??? If you (more content not included)...ProMedica Memorial HospitalUA with Cult Rflxon 20-95-5266Hqdco (U)YellowNormalYellowMercy Health St. Rita'S Medical CenterComment on above:Order Comment: Added by Monroe ExpertResult Comment: Microscopic readings are only performed on those samples that meet specific criteria set forth by [facility].Performed By: #### [id number] #### [facility] [address], [place] [address]Kyrjapa (U) [Mass/Vol]NegativeNormalNegPomerene HospitalComment on above:Order Comment: Added by Monroe ExpertPerformed By: #### [id number] #### [facility] [address], [place] [address]Vxqdfpq Ql (U)NegativeNormalNegPomerene Hospital Comment on above:Order Comment: Added by Monroe ExpertPerformed By: #### [id number] #### [facility] [address], [place] [address]MQ Blood1+ mg/dLAbnormalNegativeMercy Health St. [facility]'S Medical Center Comment on above:Order Comment: Added by Monroe ExpertPerformed By: #### [id number] #### [facility] [address], [place] [address]QW ClarityEx.TurbidAbnormalClearFBucyrus Community Hospital Comment on above:Order Comment: Added by Monroe ExpertPerformed By: #### [id number] #### [facility] [address], [place] [address]VW Leuk Qnr038 Jatinder/uLAbnormalNegativeMercy Health St. Rita'S Medical CenterComment on above:Order Comment: Added by Monroe ExpertPerformed By: #### [id number] #### [facility] [address], [place] [address]QL Nitrite1+ mg/dLAbnormalNegPomerene Hospital Comment on above:Order Comment: Added by Monroe ExpertPerformed By: #### [id number] #### [facility] [address], [place] [address]TY pH8.0Invalid Interpretation Code5.0-9.0[facility]'S Medical CenterComment on above:Order Comment: Added by Monroe ExpertPerformed By: #### [id number] #### [facility] [address], [place] [address]IA Protein2+ mg/dLAbnormalNegPomerene Hospital Comment on above:Order Comment: Added by Monroe ExpertPerformed By: #### [id number] #### [facility] [address], [place] [address]TO Spec Grav1.014Invalid Interpretation Code1.005-1.030[facility]'S Medical CenterComment on above:Order Comment: Added by Monroe Expert Performed By: #### [id number] #### [facility] [address], [place] [address]LY UrobilinogenNegativeNormalNegPomerene HospitalComment on above:Order Comment: Added by Discern ExpertPerformed By: #### [id number] #### [facility] [address], [place] [address]VO WBC Cvkgi45-26OyyiuzrxNhwshpKeenan Private HospitalComment on above:Order Comment: Added by Discern ExpertPerformed By: #### [id number] #### [facility] [address], [place] [address]Gtsftrqdmmnf (U) [Mass/Vol]NegativeNormalNegPomerene HospitalComment on above:Order Comment: Added by Monroe ExpertPerformed By: #### [id number] #### [facility] [address], [place] [address]CC Bacteria4+ /HPFAbnormKeenan Private Hospital Comment on above:Order Comment: Added by Monroe ExpertPerformed By: #### [id number] #### [facility] [address], [place] [address]OG CA Ox CrystalPresentAbnUniversity Hospitals Lake West Medical Center Comment on above:Order Comment: Added by Monroe ExpertPerformed By: #### [id number] #### [facility] [address], [place] [address]PG MucousTraceNormalNegPomerene HospitalComment on above:Order Comment: Added by Monroe ExpertPerformed By: #### [id number] #### [facility] [address], [place] [address]IP NKN0-90Jhfufxgh5-0Ncybff [facility] HospitalComment on above:Order Comment: Added by Monroe ExpertPerformed By: #### [id number] #### [facility] [address], [place] [address]WA WBC>64Cnrpltlb3-6Fxused [facility] HospitalComment on above:Order Comment: Added by Discern ExpertPerformed By: #### [id number] #### [facility] [address], [place] [address]UR with Cult Rflx SPon 87-88-7930WK Spec DescFoleyNormalFishmichelle [facility] HospitalComment on above:Performed By: #### [id number] #### [facility] [address], [place] [address]MRGpe 38-00-0402Ivd [address] [address] Cardiac Rehab Report Signed Patient: MANOLO ROCHE MR#: [id number] : 1935 Acct:[id number] Age/Sex: 89 / M ADM Date: 05/10/25 Loc: CR Attending Dr: Anat Perez M.D. Ordering Physician: Marito Jimenez M.D. 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 Interpretive Statements Patient may start cardiac rehab as outlined in the treatment plan. Electronically Signed On 05-10-2025 15:43:30 EDT by CHUCK ROACH M.D. Dictated By: CHUCK ROACH Signed By: 05/10/25 1544 05/10/25 1544 DD/ 1433 TD/TT: Production Internship:TBHRadiology, Radiologist, - 05/10/[address] [address] Cardiac Rehab Report Signed Patient: MANOLO ROCHE MR#: [id number] : 1935 Acct:[id number] Age/Sex: 89 / M ADM Date: 05/10/25 Loc: CR Attending Dr: Anat Perez M.D. Ordering Physician: Marito Jimenez M.D. Date of Service: 05/10/25 Procedure(s): ITP Accession Number(s): [id number] cc: 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 Interpretive Statements Patient may start cardiac rehab as outlined in the treatment plan. Electronically Signed On 05-10-2025 15:43:30 EDT by CHUCK ROACH M.D. Dictated By: CHUCK ROACH Signed By: 05/10/25 1544 05/10/25 1544 DD/ 1433 TD/TT: Production Internship: [facility] HealthcareRadiology Study observation (narrative)[facility] HealthcareITPOrdered By: Radiologist Radiology on 41-98-3997ZEWV [employer] Work Phone: ITPon [phone] [address] Cardiac Rehab Report Signed Patient: MANOLO ROCHE MR#: [id number] : 1935 Acct:[id number] Age/Sex: 89 / M ADM Date: 05/07/25 Loc: CR Attending Dr: Anat Perez M.D. Ordering Physician: CHUCK ROACH Date of Service: 05/08/25 Procedure(s): ITP Accession Number(s): [id number] cc: 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 Order Number: [id number] Vu MD: CHUCK ROACH M.D. Interpretive Statements Patient may start cardiac rehab as outlined in the treatment plan. Electronically Signed On 05-08-2025 19:06:51 EDT by CHUCK ROACH M.D. Dictated By: CHUCK ROACH Signed By: 05/08/25190605/08/251906 DD/ 08 TD/TT: Production Internship:Iris Hartley MD - 05/08/2025 [place] [address] Cardiac Rehab Report Signed Patient: AMNOLO ROCHE MR#: [id number] : 1935 Acct:[id number] Age/Sex: 89 / M ADM Date: 05/07/25 Loc: CR Attending Dr: Anat Perez M.D. 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 Order Number: [id number] Reading MD: CHUCK ROACH M.D. Interpretive Statements Patient may start cardiac rehab as outlined in the treatment plan. Electronically Signed On 05-08-2025 19:06:51 EDT by CHUCK ROACH M.D. Dictated By: CHUCK ROACH Signed By: 05/08/25190605/08/251906 DD/ 08 TD/TT: Production Internship: [facility] HealthcareRadiology Study observation (narrative)[facility] HealthcareITPOrdered By: Radiologist Radiology on 16-70-6405[facility] Work Phone: cNOVon [phone] Visit (ENDOLN) MANOLO ROCHE ([id number]) 1935 M Date Time Provider Department 05/03/25 [...] DM Type 1. Here with . 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 Per patient, this was done due to [...] mouth once daily. Di (more content not included)...NormalMercy Health Willard Hospitalon 31-05-1493OYAMHzyiwzysb (ENDOLN) MANOLO ROCHE ([id number]) 1935 M Date Time Provider Department 05/03/25 AYANA ZAVALA ENDOLN During your visit today, we recorded the following information about you: Miguel A Goodwin MA 05/03/2025 8:43 AM Signed Attempted to reach patients as a reminder that patient has a 10 am appointment with Marc our collateral clerk and an appointment at 11 a.m. with Ayana. Also left detailed message that we wanted to know if he has been checking his blood glucose and if so to please bring those to todays appointment. Allergies As of Date: 05/03/2025 (No Known Allergies) Date Reviewed: 04/09/2025 Reviewed by: Ayana Zavala APRN.LOAN REVIEW OFFICER - Fully Assessed Reason for Visit: Patient Question [3100] Cmt: Glucose readings Prescriptions as of 05/03/2025 - insulin glargine (LANTUS SOLOSTAR U-100 INSULIN) 100 unit/mL (3 mL) Inject 12 Units subcutaneously daily at bedtime. - insulin aspart U-100 (NOVOLOG FLEXPEN U-100 INSULIN) 100 unit/mL (3 mL) pen Inject 4 units with meals plus sliding scale (Max daily dose of 30 units daily) - Insulin Hernando, Disposable, (BD ULTRA-FINE MARICHUY PEN NEEDLE) 32 [...] Inject 1 mg subcutaneously as needed. - lklmys-nruvmldm-lrthdzu (CREON) 24,000-76,000 -120,000 unit cpDR Take 2 [...] Encounter Status:Closed by MIGUEL A GOODWIN on 05/03/25NoSt. John of God HospitalCNPNTelephone (ENDOLN) MANOLO ROCHE ([id number]) 1935 M Date Time Provider Department 05/03/25 AYANA ZAVALA During your visit today, we recorded the following information about you: Miguel A Goodwin MA 05/03/2025 3:12 PM Signed Received a fax from [facility] of patients current medication list as well as glucose readings. Ayana reviewed then requested to send for scan. Allergies As of Date: 05/03/2025 (No Known Allergies) Date Reviewed: 05/03/2025 Reviewed by: Ayana Zavala APRN.LOAN REVIEW OFFICER - Fully Assessed Reason for Visit: Patient Update [1234] Cmt: [facility]- Medication update and glucose readings Prescriptions as of 05/03/2025 - insulin glargine (LANTUS SOLOSTAR U-100 INSULIN) 100 unit/mL (3 mL) Inject 15 Units subcutaneously daily at bedtime. - insulin aspart U-100 (NOVOLOG FLEXPEN U-100 INSULIN) 100 unit/mL (3 mL) pen Inject 4 units with meals plus sliding scale (Max daily dose of 30 units daily) - Insulin Hernando, Disposable, (BD ULTRA-FINE MARICHUY PEN NEEDLE) 32 gauge x 5/32 Use four times daily with insulin pens - Blood-Glucose Sensor (Months Of Me G7 SENSOR) delfin Change every 10 days. [...] Inject 1 mg subcutaneously as needed. - vhlrdy-fvzfifeu-ouqdgkc (CREON) 24,000-76,000 -120,000 unit cpDR Take 2 [...] Encounter Status:Closed by MIGUEL A GOODWIN on 05/03/25Tuscarawas HospitalAmbulatory Visit Summaryon 00-05-1868Ygluwviewy Visit SummaryAmbulatory Visit Summary MANOLO ROCHE :1935 [...] When: Comments: Pending Cysto/bladder function testing Where: [address] [place] [address]- Medications What How Much When Instructions [...] signed up for this yet, please contact [employer] at [phone] to get signed up today. Language Information Language assistance services are available as needed. [facility] HospitalUrology Office/Clinic Noteon [id number] Office/Clinic NoteUrology Office/Clinic Note Chief Complaint new patient HPI Staff 89 year old male [facility] ER F/U and Urology consult 04/10/25 for [...] is a 89 yo M here for [facility] ER f/u for urinary retention. 1. Urinary retention, (R33.9: Retention of urine, unspecified)Incomplete bladder emptying Seen at [facility] ER 04/10/25 for urinary retention of 700 [...] He was seen in consultation at the [facility] for significant urinary retention of about 700 [...] Information JULIO OGLESBY, Tristan Interiano, URL [address] [facility] [address] [address] [place] [address]- Additional Instructions: Pending Cysto/bladder function testing Patient Education I, Collette Phillips, personally scribed for Dr. Melchor on 04/25/2025 15:13:38. . Documentation recorded by the scribe, Collette Phillips, accurately reflects the services(s) I performed and decisions made by me. Authenticated by Dr. Melchor on 04/25/2025 15:15:06. Portions of this record may have been created with voice recognition artificial intelligence software, specifically CodeNgo, Zarpo and or [employer]. Substitutions may have occurred due to the [...] pacemaker, Cataract extraction, H/O (more content not included)...[facility] Memorial HospitalComment on above:Result Comment: Electronically Signed By: Quyen Melchor\.br\Date and Time Signed: 04/25/25 15:24 EDTCNPHaley 55-48-6678MFMPYffxgjmxt (ENDOLN) MANOLO ROCHE ([id number]) 1935 M Date Time Provider Department 04/23/25 [...] enzyme or marker Patient is currently at [facility] [phone] Spouse states they are not controlling his BS well. Advised Provider doesn't have charge of care as he is admitted to [facility] and she must reach out to [...] Signed Attempted to reach staff at [facility]. Was transferred but then no answer. Will try again later. Erick Peguero LPN 04/24/2025 3:59 PM Signed Spoke to Yvan FRAZIER, He will fax over requested blood sugar readings and current med list to our office. Patient's notiifed Allergies As of Date: 04/23/2025 (No Known Allergies) Date Reviewed: 04/09/2025 Reviewed by: Ayana Zavala APRN.KALANI - Fully Assessed Reason for Visit: Patient Update [1234] American Board Certified Orthotist - Other [3602] Prescriptions as of 04/24/2025 - insulin glargine (LANTUS SOLOSTAR U-100 INSULIN) 100 unit/mL (3 mL) Inject 12 Units subcutaneously daily at bedtime. - insulin aspart U-100 (NOVOLOG FLEXPEN U-100 INSULIN) 100 unit/mL (3 mL) pen Inject 4 units with meals plus sliding scale (Max daily dose of 30 units daily) - Insulin Hernando, Disposable, (BD ULTRA-FINE MARICHUY PEN NEEDLE) 32 gauge x 5/32 Use four times daily with insulin pens - Blood-Glucose Sensor (Months Of Me G7 SENSOR) delfin Change every 10 days. [...] Inject 1 mg subcutaneously as needed. - swlzem-sdngwjfs-keplpsc (CREON) 24,000-76,000 -120,000 unit cpDR Take 2 [...] *06/23/2018 Encounter Status:Closed by AYANA ZAVALA on 04/24/25NormalCMarietta Memorial Hospital peptide SerPl-mCncon 04-09-2025 peptide [Mass/Vol]<0.1Low1.1-4.4 [facility] on above:Order Comment: Specimen Type: BLOOD SPECIMENOrdering Facility: [facility] Address:[address] [place], [place] [address]Performed By: #### 1986-9 ####[facility] LABCLIA [id number] [address] [id number], [place] [address] [place] STATES OF [facility] HOSPITALCC GLUCOSE P FAST SERPL-WELLSPAN WAYNESBORO HOSPITALon 84-69-9011Zbdnswh [Mass/Vol]751 mg/dLHigh 74 - 99 mg/dLHannibal Regional HospitalComment on above:Dominican Diabetes Association guidelines state that a diabetes mellitus diagnosis is preliminarily made when the fasting plasma glucose meets or exceeds 126 mg/dL. In the absence of unequivocal hyperglycemia, results should be confirmed with repeat testing. Patients are at increased risk for diabetes mellitus (prediabetes) when the fasting glucose is 100 to 125 mg/dL.Interpretation and review of laboratory resultsAbnormalHannibal Regional HospitalSpecimen Type: BLOOD SPECIMEN [facility] Address: [address] [place] [id number] Original Ordering Provider: AYANA LAKHANI [facility] [id number] Visit (ENDOLN) KALEYMANOLO ([id number]) 1935 M Date Time Provider Department 04/09/25 2:00 PM AYANA ZAVALA ENDOLN During your visit today, we recorded the following information about you: Pulse Blood pressure Weight 60/minute 162/86 62.9 kg Ayana Zavala APRN.LOAN REVIEW OFFICER 04/10/2025 8:17 AM Addendum Endocrinology Follow Up History of Present Illness Manolo Roche is a 89 year old male presents today for follow up of DM Type 1. Here with . At [facility] 10/2024, basal rate was reduced overnight. [...] or vomiting. 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 Labwork from this AM is pending. recalls he is not bolusing consistently and will ignore his Omnipod alarms at times. Patient recalls being consistent with his Novolog and Lantus injections when he was on these. 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 Per patient, this was done due to [...] OTHER Medication Dosage Pharm Subclass Blood-Glucose Sensor (Months Of Me G7 SENSOR) delfin Change every 10 days. [...] to treat Hypoglycemia (Hyperg (more content not included)...NormalFostoria City HospitalGAD65 Ab Ser-aCncon 04-09-2025 Glutamate decarboxylase 65 Ab Qn (S)<5.0Normal<=5.0[facility] Comment on above:Order Comment: Specimen Type: BLOOD SPECIMENOrdering Facility: [facility] Address:[address], [place] [address]Mugmdt Comment: Anti-glutamic acid decarboxylase antibody (GAD65) test [...] diseases. Clinical correlation is required.Performed By: #### 80487-1 ####[facility] [id number] [place] [address] [place] AMERICAGlucose p fast SerPl-ncon 95-52-4481Yuywohh post fast [Mass/Vol]751 mg/bFLslv47-12HjvqukhtlFostoria City HospitalComment on above:Order Comment: Specimen Type: BLOOD SPECIMENOrdering Facility: [facility] Address:[address] [place], [place] [address]Result Comment: [place] Diabetes Association guidelines state that a diabetes mellitus diagnosis is preliminarily made when the fasting plasma glucose meets or exceeds 126 mg/dL. In the absence of unequivocal hyperglycemia, results should be confirmed with repeat testing. Patients are at increasedrisk for diabetes mellitus (prediabetes) when the fasting glucose is 100 to 125 mg/dL.Performed By: #### 1558-6 ####[facility] [id number] [place] [address] [place] AMERICAGlutamate decarboxylase 65 Ab Qn (S)on 05-50-8843IPWNOKCY ACID DECARBOXYLAS AB QUALITATIVENegativeNormalNegativeFostoria City Hospital Comment on above:Order Comment: Specimen Type: BLOOD SPECIMENOrdering Facility: [facility] Address:[address] [place] [address] Performed By: #### 50203-7 ####[facility] [id number] [address] STATES OF [place] HbA1c (Bld)on 66-43-3250Woffols glucose Estimated from glycated hemoglobin (Bld) [Mass/Vol]321 mg/dLNormalCWooster Community Hospital on above:Order Comment: Specimen Type: BLOOD SPECIMENOrdering Facility: [facility] Address:[address] [place], [place] [address]Result Comment: eAG: (Estimated average glucose) is a calculated value from HgbA1c and is representa tive of the average blood glucose level in the last 2-3 month period.Performed By: #### 10324-6 ####[facility] LABIA [id number] [place] [address] [place] GIZNGOVTwY6v (Bld) [Mass fraction]12.8 %High4.3-5.6ClevelWilson Medical CenterComment on above:Order Comment: Specimen Type: BLOOD SPECIMENOrdering Facility: [facility] Address:[address] [place], [place] [address]Result Comment: [place] Diabetes Association guidelines indicate that patients with HgbA1c in the range 5.7-6.4% are at increased risk for development of diabetes, and intervention by lifestyle modification may be beneficial. HgbA1c greater or equal to 6.5% is considered diagnostic of diabetes.Performed By: #### 59893-6 ####[facility] LABIA [id number] [place] [address] [place] [facility] HOSPITALALL PRO BNPon 68-66-3834WB PRO B TYPE NATRIURETIC [id number] pg/mLCritically highNINF - 1800.0 pg/mLNOMS HealthcareComment on above: RESULTS CALLED TO JOEY GARCES CMP (CMP) (FOR REMOTE [facility] USE)on 90-46-2785Eowrioe [Mass/Vol]3.2 g/dLLow3.4 - 5.0 g/dLNOMS HealthcareALBUMIN GLOBULIN [...] [Vol rate/Area]30Low>=60 mL/min/1.73m 2NOMS HealthcareGlobulin (S) [Mass/Vol]3.7 g/dLNOVT HealthcareGlucose [Mass/Vol]581 mg/dLCritically high74 - 106 mg/dLUTAH VALLEY HOSPITAL HealthcareComment on above:RESULTS CALLED TO ZENAIDA SANDOVAL, RN Potassium [Moles/Vol]4.7 mmol/L3.5 - 5.1 mmol/LNOMS HealthcareProtein [Mass/Vol] 6.9 g/dL6.4 - 8.2 g/dLNOVT HealthcareSodium [Moles/Vol]129 mmol/KNic580 - 145 mmol/LNOMS HealthcareTBH EGFR-NON AF VGOTREVF55Eya>=60 mL/min/1.73m 2NOMS HealthcareUrea nitrogen [Mass/Vol]73 mg/dLHigh7.0 - 18.0 mg/dLNOVT Healthcare Urea nitrogen/Creatinine [Mass ratio]29.4 mg/mgNOVT HealthcareNo Panel Informationon 41-13-3777Eieqycoaaqlwvc and review of laboratory resultsAbnoDanville State HospitalCLINISJackson-Madison County General HospitalGLUTAMIC AC DECARBOXYLASE ABOrdered By: Erick Peguero on 08-63-9112Ffkuorwpi decarboxylase 65 Ab Qn (S)-5.0AbnoACMC Healthcare System GlenbeighR HEMOGLOBIN A1Con 78-33-7883Wyahuxn [Mass/Vol]269 mg/dLNOReynolds County General Memorial HospitalQgjyukhnkhKuA3e (Bld) [Mass fraction]11 %High4.5 - 6.2 %Hannibal Regional HospitalComment on above:ADA RECOMMENDED LIMIT 4.0 - 6.0 ADA THERAPEUTIC TARGET < 7.0 ACTION SUGGESTED > 7.0 Interpretation and review of laboratory resultsAbnormGeisinger St. Luke's HospitalCLINISYNMcLeod Health DarlingtonNo Panel Informationon 88-42-9833Cuafheeeocbdhy and review of laboratory resultsAbnormAurora St. Luke's Medical Center– MilwaukeeTB GLUCOSE BLOODon 16-36-2877Geudmxb [Mass/Vol]141 mg/hXFvzm19 - 106 mg/dLNew Mexico Behavioral Health Institute at [facility] Vegas Issa 47-24-3216BBLZIhyinohhb (ENDOLN) MANOLO ROCHE ([id number]) 1935 M Date Time Provider Department 02/05/25 [...] Buffy Roche MA 02/15/2025 10:09 AM Signed [employer]-Medicare Part B Insulin RX form completed and faxed Confirmation received Allergies As of Date: 02/05/2025 (No Known Allergies) Date Reviewed: 10/26/2024 Reviewed by: Ayana Zavala APRN.CNP - Fully Assessed Reason for Visit: [employer] form [Other] Primary Visit Diagnosis: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 - osdruw-epthnmhj-estkphr (CREON) 24,000-76,000 -120,000 unit cpDR Take 2 [...] *06/23/2018 Encounter Status:Closed by AYANA ZAVALA on 02/05/25NoLouis [facility] ANGIOGRAM CHESTon 64-25-8370OA ANGIOGRAM CHESTCLINICAL HISTORY: Chest pain. Technique: Spiral [...] ELECTRONICALLY SIGNED BY: Howard Mae MDNormalNot AvailableCreatinineon 76-48-5169Oyhplkzgve [Mass/Vol]1.21 mg/dL0.76 - 1.27 mg/dLHannibal Regional Hospital Creatinine [Mass/Vol]on 33-64-9914TSM/1.73 sq M.predicted among non-blacks MDRD (S/P/Bld) [Vol rate/Area]58 mL/min/{1.73_m2}Low59 - PINF mL/min/1.73Hannibal Regional HospitalInterpretation and review of laboratory resultsSouth Coastal Health Campus Emergency Department Performed at: - LabSt. Lukes [facility] [address], [address], [place], [place] [address] Cold Type Artist: Hilario Chew MD, Phone: [phone] Langone Tisch HospitalXR CHEST 2 VIEWSon 30-17-7093FS CHEST 2 VIEWSTITLE OF EXAM: XR CHEST [...] the interpreting radiologist.NormalNot AvailableXR Chest 2 Viewson 76-88-5825VWJZI OF EXAM: XR CHEST 2 VIEWS REASON [...] signed in approved by the interpreting radiologist. [facility] HealthcareRadiology Study observation (narrative)Hannibal Regional HospitalXR Chest 2 ViewsOrdered By: Yuval Gill on 58-58-1072VUBHHannibal Regional Hospital Work Phone: CNPNon [phone] (ENDOLN) MANOLO ROCHE ([id number]) 1935 M Date Time Provider Department 12/19/24 AYANA ZAVALA ENDOLN During your visit today, we recorded the following information about you: Sharonda Felipe 12/19/2024 12:07 PM Signed Pt needs refill on sensors. Do not see on current med list. Pt uses [facility] pharmacy in [facility]. Insurance is not going to pay for this until 01/03. Spouse is requesting to speak to a nurse about getting an alternative until then. Please review and advise. Patient has been identified by name and birthdate. Duration of symptoms: N/A Person calling: self Call patient at: on cell [phone] (cell) Was an appointment scheduled: No Closing statement: Results or non-symptom based questions: Thank you for calling [facility], your call will be returned within the next business day. Ayana Hess APRN.KALANI 12/25/2024 8:04 AM Addendum Rx sent however patient obtains typically from [facility], are they still having issues obtaining from there? Erick Peguero LPN 12/27/2024 11:08 AM Signed Spoke to pharmacy, the sensors are ready for picking tech. Relayed message to patient's . She states that they do usually receive sensors from [facility] but they are having issues receiving them. The patient uses more that prescribed and paid for by insurance because they fall out. She will picking tech those at pharmacy , if there are [...] PUMP (MAX DAILY 75 UNITS) - Insulin Hernando, Disposable, (BD ULTRA-FINE MARICHUY PEN NEEDLE) 32 [...] Inject 1 mg subcutaneously as needed. - aqjgjs-ngelzlej-khfyxih (CREON) 24,000-76,000 -120,000 unit cpDR Take 2 [...] ordered this encounter Disp Refills Start End Months Of Me G7 SENSOR DEVICE 3 ea* 0 12/25/2024 Sig: Change every 10 days. Encounter Status:Closed by AYANA ZAVALA on 12/25/24[facility] [id number] Visit (ENDOLN) MANOLO ROCHE ([id number]) 1935 M Date Time Provider Department 10/26/24 12:15 PM AYANA ZAVALA During your visit today, we recorded the following information about you: Pulse Blood pressure Weight Height 60/minute 163/80 61 kg 1.778 m Ayana Zavala APRN.LOAN REVIEW OFFICER 10/26/2024 1:11 PM Signed Endocrinology Follow Up History of Present Illness Manolo Roche is a 89 year old male presents today for follow up of DM Type 1. Here with . 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 Per patient, this was done due to [...] mg subcutaneously as n (more content not included)...NormalFostoria City HospitalHEMOGLOBIN A1C (POC)on 30-66-9852ItV6e (Bld) [Mass fraction]12 % Abnormal4.3 - 5.6 %[facility] Methodist HospitalComment on above:Location:[facility], [address] [place] [address], [facility] Point of care (POC) Hemoglobin A1c (HGBA1C) [...] specific diabetes management situations: The POC device senior talent management consultant provides a normal range of 4.2% to 6.5% for the HGBA1C POC test. However, the [place] Diabetes Association guidelines indicate that patients with [...] cell lifespan. Interpretation and review of laboratory resultsAbnormalClevelHighlands-Cashiers Hospital ClinicALL BASIC METABOLIC PANELon 13-20-7238Qzwni gap [Moles/Vol]12.4 mmol/LNOMS HealthcareCalcium [Mass/Vol]8.2 mg/dLLow8.5 - 10.1 mg/dLNOMS HealthcareChloride [Moles/Vol]101 mmol/L98 - 107 mmol/LNOMS HealthcareCO2 [Moles/Vol]27.9 mmol/L 21.0 - 32.0 mmol/LNOMS HealthcareCreatinine [Mass/Vol]1.41 mg/dLHigh0.70 - 1.30 mg/dLNOMS HealthcareGFR/1.73 sq M.predicted CKD-EPI (S/P/Bld) [Vol rate/Area]58 Low>=60 mL/min/1.73m 2NOMS HealthcareGlucose [Mass/Vol]355 mg/dCUdmu46 - 106 mg/dLNOMS HealthcarePotassium [Moles/Vol]4.3 mmol/L3.5 - 5.1 mmol/LNOMS HealthcareSodium [Moles/Vol]137 mmol/L136 - 145 mmol/LNOMS HealthcareTBH EGFR- NON AF SVOSMRWK98Rkb>=60 mL/min/1.73m 2NOMS HealthcareUrea nitrogen [Mass/Vol]31 mg/dLHigh7.0 - 18.0 mg/dLNOMS HealthcareUrea nitrogen/Creatinine [Mass ratio]22 mg/mgNOMS HealthcareALL PRO BNPon 33-44-1223LF PRO B TYPE NATRIURETIC [id number] pg/mLCritically highNINF - 1800.0 pg/mLNOMS HealthcareComment on above:RESULTS CALLED TO Zenaida Sandoval RNNo Panel Informationon 71-73-9413Tgdzvnxvcatrjv and review of laboratory resultsAbnormalNOMS HealthcareCLINISYNCNCOMMUNITY HOSPITAL [facility] – [facility]OMA CITY HealthcareCNPN on 34-28-9968UWQTFgidxxlfm (ELIZABETHBHT) MANOLO ROCHE ([id number]) 1935 M Date Time Provider Department 10/13/24 [...] Date Reviewed: 09/25/2024 Reviewed by: Ayana Zavala APRN.LOAN REVIEW OFFICER - Fully Assessed Reason for Visit: Omnipod/Dexcom [...] crtg Change every 72 hours. - Insulin Hernando, Disposable, (BD ULTRA-FINE MARICHUY PEN NEEDLE) 32 [...] Inject 1 mg subcutaneously as needed. - hcirrg-sdhfuipy-xvqcrhp (CREON) 24,000-76,000 -120,000 unit cpDR Take 2 [...] *06/23/2018 Encounter Status:Closed by GAYE MATA on 10/13/24NoOhio Valley Surgical Hospital 12-97-5114DVJQDuqanleah (ENDOLN) MANOLO ROCHE ([id number]) 1935 M Date Time Provider Department 10/11/24 [...] notes attached Questions Completed Waiting for determination [facility] Prior Utility Gelatin [employer] Endocrinology and Metabolism [place] Ruchi Rhoades 10/11/2024 11:37 AM Signed Allergies As of Date: 10/11/2024 (No Known Allergies) Date Reviewed: 09/25/2024 Reviewed by: Ayana Zavala APRN.LOAN REVIEW OFFICER - Fully Assessed Reason for Visit: Insurance Authorization [[id number]] Cmt: insulin pump cart,auto,BT,G6/7 (OMNIPOD 5 G6-G7 [...] crtg Change every 72 hours. - Insulin Hernando, Disposable, (BD ULTRA-FINE MARICHUY PEN NEEDLE) 32 [...] Inject 1 mg subcutaneously as needed. - lnqmmw-ibgpilqh-ggdbkep (CREON) 24,000-76,000 -120,000 unit cpDR Take 2 [...] *06/23/2018 Encounter Status:Closed by AYANA ZAVALA on 10/11/24Tuscarawas HospitalCNPNTelephone (ELIZABETHBHT) MANOLO ROCHE ([id number]) 1935 M Date Time Provider Department 10/11/24 GAYE MATA During your visit today, we recorded the following information about you: Gaye Mata, RN 10/11/2024 4:23 PM Signed Patient's sent message patient had received Dexcom G7 CGM sensors from [employer] last night. Patient applied Omnipod 6 insulin [...] Date Reviewed: 09/25/2024 Reviewed by: Ayana Zavala APRN.LOAN REVIEW OFFICER - Fully Assessed Reason for Visit: Omnipod [...] crtg Change every 72 hours. - Insulin Hernando, Disposable, (BD ULTRA-FINE MARICHUY PEN NEEDLE) 32 [...] Inject 1 mg subcutaneously as needed. - qpsjus-pxziayyj-lotjlkg (CREON) 24,000-76,000 -120,000 unit cpDR Take 2 [...] *06/23/2018 Encounter Status:Closed by GAYE MATA on 10/11/24Tuscarawas HospitalCNPNon 66-88-1539BRIJHatsmzadt (DEMBHT) KALEYGIOVANIMANOLO ([id number]) 1935 M Date Time Provider Department 10/10/24 GAYE MATA During your visit today, we recorded the following information about you: Gaye Mata, RN 10/10/2024 9:36 AM Signed Called and spoke with patient's . Patient called educator last week stating he has been having issues getting his Dexcom G7 CGM sensors from his DME company, [employer]. Patient states he called them a few [...] LPN 10/10/2024 3:40 PM Signed Spoke to [employer] Rep, he reported that the Dexcom supplies should be delivered today vis [employer]. Tracking nbr [id number]. According to his notes it was out for delivery at 5:48 am 10/10/2024. I attempted to reach patient at both nbrs listed, no answer. VM left with update. I will send a [employer]bit message as well. Allergies As of Date: 10/10/2024 (No Known Allergies) Date Reviewed: 09/25/2024 Reviewed by: Ayana Zavala APRN.LOAN REVIEW OFFICER - Fully Assessed Reason for Visit: Dexcom [...] crtg Change every 72 hours. - Insulin Hernando, Disposable, (BD ULTRA-FINE MARICHUY PEN NEEDLE) 32 [...] Inject 1 mg subcutaneously as needed. - vbocoe-ggkxuumo-ltgyrct (CREON) 24,000-76,000 -120,000 unit cpDR Take 2 [...] *06/23/2018 Encounter Status:Closed by GAYE MATA on 10/10/24[facility] [id number] (ELIZABETHLeeann) MANOLO ROCHE ([id number]) 1935 M Date Time Provider Department 10/04/24 GAYE MATA During your visit today, we recorded the following information about you: Allergies As of Date: 10/04/2024 (No Known Allergies) Date Reviewed: 09/25/2024 Reviewed by: Ayana Zavala APRN.LOAN REVIEW OFFICER - Fully Assessed Reason for Visit: Omnipod [...] 5,) crtg Change every 72 hours. - fuszmy-rgxprmyy-tomicfo (CREON) 24,000-76,000 -120,000 unit cpDR Take 2 [...] *06/23/2018 Encounter Status:Closed by GAYE MATA on 10/04/24NoSt. John of God HospitalGuera (LIANNA) MANOLO ROCHE ([id number]) 1935 M Date Time Provider Department 10/04/24 GAYE MATA During your visit today, we recorded the following information about you: Gaye Mata, KARIN 10/04/2024 4:41 PM Signed Patent called stating that he is out of [employer] G7 CGM sensors and has been having difficulty getting the shipment from [employer], his DME supplier. Patient states he made 3 calls to them this week, one including a conditioning yard supervisor at [facility], who promised that the shipment was sent and would be received in a day or two. Advised patient to contact his provider's office to see if they are able to help as they submitted all the original paperwork to [facility] back in August and I am not sure if they are waiting on something from the office. Patient was also told to see if the provider's office had Dexcom G7 sensor samples to provide until his shipment arrives so he does not have to drive out to [facility]. Patient verbalized understanding. Allergies As of Date: 10/04/2024 (No Known Allergies) Date Reviewed: 09/25/2024 Reviewed by: Ayana Zavala APRN.LOAN REVIEW OFFICER - Fully Assessed Reason for Visit: Dexcom [...] Inject 1 mg subcutaneously as needed. - eelrhm-fdecvzsq-eewwxvc (CREON) 24,000-76,000 -120,000 unit cpDR Take 2 [...] *06/23/2018 Encounter Status:Closed by GAYE MATA on 10/04/24[facility] [id number] (DEMT) MANOLO ROCHE ([id number]) 1935 M Date Time Provider Department 09/27/24 GAYE MATA [facility] During your visit today, we recorded the following information about you: Allergies As of Date: 09/27/2024 (No Known Allergies) Date Reviewed: 09/25/2024 Reviewed by: Ayana Zavala APRN.LOAN REVIEW OFFICER - Fully Assessed Reason for Visit: Omnipod [...] 5,) crtg Change every 72 hours. - ougezw-fzyjwgrj-ecjbwoz (CREON) 24,000-76,000 -120,000 unit cpDR Take 2 [...] *06/23/2018 Encounter Status:Closed by GAYE MATA on 09/27/24NoCleveland Clinic Hillcrest HospitalLinwoodphone ([facility]) MANOLO ROCHE ([id number]) 1935 M Date Time Provider Department 09/27/24 GAYE MATA During your visit today, we recorded the following information about you: Gaye Mata, KARIN 09/27/2024 1:23 PM Signed In error Allergies As of Date: 09/27/2024 (No Known Allergies) Date Reviewed: 09/25/2024 Reviewed by: Ayana Zavala APRN.LOAN REVIEW OFFICER - Fully Assessed Prescriptions as of 09/27/2024 [...] 5,) crtg Change every 72 hours. - vgyryk-ukpaardy-hvkerwo (CREON) 24,000-76,000 -120,000 unit cpDR Take 2 [...] *06/23/2018 Encounter Status:Closed by GAYE MATA on 09/27/24[facility] [id number] (ENDOLN) MANOLO ROCHE ([id number]) 1935 M Date Time Provider Department 09/26/24 AYANA ZAVALA ENDOLN During your visit today, we recorded the following information about you: Ayana Zavala APRN.LOAN REVIEW OFFICER 09/26/2024 7:40 AM Signed Received page regarding [...] below Stated understanding will take pt to [facility] Advised to f/u with endo upon release [...] re : HIPAA in in basics in [facility] does attend ov ( see 09-25-2024) Will document this in [facility]/ basics Erick Peguero LPN 09/26/2024 8:18 AM Signed Left message on machine to call the office. Ayana Zavala APRN.CNP 09/26/2024 11:55 AM Addendum Provided report to [place] [facility]. Informed of BG of 614 mg/dL [...] It appears patient has been discharged from [place] [facility] around 10:00 AM. His blood sugar has greatly improved and is at/near range per pump report today (see below). Please reach out to patient/ to see how patient is doing. I will also have Gaye (pump rehab trainer) reach out to them to review [...] LPN 09/27/2024 5:50 PM Signed Please see [employer] message 09/27/24 Allergies As of Date: 09/26/2024 (No Known Allergies) Date Reviewed: 09/25/2024 Reviewed by: Ayana Zavala APRN.LOAN REVIEW OFFICER - Fully Assessed Prescriptions as of 09/27/2024 [...] 5,) crtg Change every 72 hours. - mcotly-qlfmkrhc-acyhsgb (CREON) 24,000-76,000 -120,000 unit cpDR Take 2 [...] (intraductal papillary mucinous (more content not included)...Normal [facility]ostoria City HospitalALBUMIN/CREATININE RATIO, URINEon 06-48-7303Sbnfryp DL <= 20 mg/L (U) [Mass/Vol]20.2 mg/LNormalSelect [facility] [place] on above:Order Comment: Specimen Type: URINE SPECIMENOrdering Facility: [facility] Address:[address] [place], [place] [address]Performed By: #### UACR ####[facility] LABIA [id number] [address] STATES OF [facility] HOSPITALAlbumin/Creatinine (U) [Mass ratio]106 mg/gHigh<30[facility] on above:Order Comment: Specimen Type: URINE SPECIMENOrdering Facility: [facility] Address:[address] [place], [place] [address]Result Comment: Adult Male and Female Nephrotic Criteria: <30 mg/g is considered normal to mildly increased 30-300 mg/g is considered moderately increased >300 mg/g is considered severely increased KDIGO. (2013). KDIGO 2012 Clinical Practice Guideline for the Evaluation and Management of Chronic Kidney Disease. Official Journal of the International Society of Nephrology, 3(1), 1-150.Performed By: #### UACR ####[facility] LABIA [id number] [place] [id number] [place] OF AMERICACreatinine (U) [Mass/Vol]19.1 mg/dLLow20.0-300.0 [facility] on above:Order Comment: Specimen Type: URINE SPECIMENOrdering Facility: [facility] Address:[address] [place], [place] [address]Performed By: #### UACR ####[facility] LABCLIA [id number] [address] [address] [place] OF AMERICACNOVon 16-10-2878VRGMAnyxxr Visit (ENDOLN) MANOLO ROCHE ([id number]) 1935 M Date Time Provider Department 09/25/24 2:30 PM AYANA ZAVALA During your visit today, we recorded the following information about you: Pulse Blood pressure Weight 60/minute 162/93 63.1 kg Ayana Zavala, AMADA.LOAN REVIEW OFFICER 09/26/2024 11:42 AM Addendum Endocrinology Follow Up [...] the meantime, but 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 Per patient, this was done due to [...] by mouth once daily. Intestinal Chayo Modifiers ehuoai-fyxsfiri-zjrohls (CREON) 24,000-76,000 -120,000 unit cpDR Take 2 capsules by mouth three times daily with meals. and 1 with snacks (8/day) Digestive Enzyme Mixtures lutein-zeaxanthin 25-5 mg cap Take by mouth once daily. Alternative Therapy - Antioxidant Omeprazole Magnesium 20 mg tablet Take 20 mg by mouth. Gastric Acid Secretion Film Processing Utility Worker - Proton Pump Inhibitors (PPIs) PARoxetine (PAXIL) 40 mg tablet Take 40 mg by mouth every morning. Antidepressant - Selective Serotonin Reuptake Inhibitors (SSRIs) tamsulosin (more content not included)...NormalFostoria City Hospital Comprehensive metabolic 2000 panelon 21-77-1837Cseovxt [Mass/Vol]3.9 g/dLNormal 3.9-4.9CWooster Community Hospital on above:Order Comment: Specimen Type: BLOOD SPECIMENOrdering Facility: [facility] Address:[address] [place], [place] [address]Performed By: #### 26650-4, LIPNF ####[facility] LABCLIA [id number] [place] [address] [place] OF AMERICAALP [Catalytic activity/Vol]156 U/AClvy06-704FofztbixjSelect Medical Specialty Hospital - [place] on above:Order Comment: Specimen Type: BLOOD SPECIMENOrdering Facility: [facility] Address:[address] [place], [place] [address]Performed By: #### 25693-6, LIPNF ####[facility] LABCLIA [id number] [place] [address] [place] AMERICAALT [Catalytic activity/Vol]43 U/AKjmtrj61-55BbjedeyrsSelect Medical Specialty Hospital - [place] on above:Order Comment: Specimen Type: BLOOD SPECIMENOrdering Facility: [facility] Address:[address] [place], [place] [address]Performed By: #### 39124-4, LIPNF ####[facility] LABCLIA [id number] [address] [place] [facility] [place] Anion gap [Moles/Vol]17 mmol/LHigh8-15[facility] on above:Order Comment: Specimen Type: BLOOD SPECIMENOrdering Facility: [facility] Address:[address] [place], [place] [address]Performed By: #### 81365-0, LIPNF ####[facility] LABCLIA [id number] [place] [address] [place] AMERICAAST [Catalytic activity/Vol]76 U/WNnji41-35MvqpneoumSelect Medical Specialty Hospital - [place] on above:Order Comment: Specimen Type: BLOOD SPECIMENOrdering Facility: [facility] Address:[address] [place], [place] [address]Performed By: #### 07251- 8, LIPNF ####[facility] LABCLIA [id number] [place] [address] [place] AMERICABilirubin [Mass/Vol]0.5 mg/dLNormal0.2-1.3CWooster Community Hospital on above:Order Comment: Specimen Type: BLOOD SPECIMENOrdering Facility: [facility] Address:[address] [place], [place] [address]Performed By: #### 70983-5, LIPNF ####[facility] LABIA [id number] [place] [address] [place] AMERICACalcium [Mass/Vol]9.3 mg/dLNormal 8.5-10.2CWooster Community Hospital on above:Order Comment: Specimen Type: BLOOD SPECIMENOrdering Facility: [facility] Address:[address] [place], [place] [address]Performed By: #### 90698-5, LIPNF ####[facility] LABCLIA [id number] [place] [address] [place] AMERICAChloride [Moles/Vol]86 mmol/VFuj57-580AlarplvtaSelect Medical Specialty Hospital - [place] on above:Order Comment: Specimen Type: BLOOD SPECIMENOrdering Facility: [facility] Address:[address] [place], [place] [address]Performed By: #### 16791-4, LIPNF ####[facility] LABIA [id number] [place] [id number] [place] OF AMERICACO2 [Moles/Vol]24 mmol/JKmfacg12-64ZqaigrrauFostoria City Hospital Comment on above:Order Comment: Specimen Type: BLOOD SPECIMENOrdering Facility: [facility] Address:[address] [place] [address] Performed By: #### 40358-3, LIPNF ####[facility] LABIA [id number] [address] STATES [place] Creatinine [Mass/Vol]1.09 mg/dLNormal0.73-1.22[facility] on above:Order Comment: Specimen Type: BLOOD SPECIMENOrdering Facility: [facility] Address:[address] [place] [address] Performed By: #### 85991-9, LIPNF ####[facility] [id number] [address] Creatinine and Glomerular filtration rate.predicted panel (S/P/Bld)66 mL/min/1.73m???Normal>=60[facility] on above:Order Comment: Specimen Type: BLOOD SPECIMENOrdering Facility: [facility] Address:[address] [place], [place] [address]Result Comment: Estimated Glomerular Filtration Rate (eGFR) is [...] not accurately reflect actual GFR.Performed By: #### 88318-8, LIPNF ####[facility] LABCLIA [id number] [place] [address] [place] AMERICAGlucose [Mass/Vol]614 mg/dLHigh 74-99[facility] on above:Order Comment: Specimen Type: BLOOD SPECIMENOrdering Facility: [facility] Address:[address] [place], [place] [address]Result Comment: The [place] Diabetes Association (ADA) provides guidance for cutoff [...] Standards of Medical Care in Diabetes 2016, [place] Diabetes Association. Diabetes Care. 2016.39(Suppl 1).Performed By: #### 07965-4, LIPNF ####[facility] LABCLIA [id number] [place] [address] [place] AMERICAPotassium [Moles/Vol]5.2 mmol/L High3.7-5.1CWooster Community Hospital on above:Order Comment: Specimen Type: BLOOD SPECIMENOrdering Facility: [facility] Address:[address] [place], [place] [address]Performed By: #### 04756-5, LIPNF ####[facility] LABIA [id number] [place] [address] [place] AMERICAProtein [Mass/Vol]7.1 g/dLNormal6.3-8.0[facility] on above:Order Comment: Specimen Type: BLOOD SPECIMENOrdering Facility: [facility] Address:[address] [place], [place] [address]Performed By: #### 62942-8, LIPNF ####[facility] LABCLIA [id number] [address] [address] [place] OF AMERICASodium [Moles/Vol]127 mmol/JSxu514-182FhlbybstvSelect Medical Specialty Hospital - [place] on above:Order Comment: Specimen Type: BLOOD SPECIMENOrdering Facility: [facility] Address:[address] [place], [place] [address]Performed By: #### 50365-3, LIPNF ####[facility] LABCLIA [id number] [place] [address] [place] Urea nitrogen [Mass/Vol]37 mg/dLHigh9-24[facility] on above:Order Comment: Specimen Type: BLOOD SPECIMENOrdering Facility: [facility] Address:[address] [place], [place] [address]Performed By: #### 60403-1, LIPNF ####[facility] LABIA [id number] [address] OF AMERICALIPID PANEL, NONFASTINGon 45-25-6585Zbzhblpxado [Mass/Vol]144 mg/dLNormal<200[facility] on above:Order Comment: Specimen Type: BLOOD SPECIMENOrdering Facility: [facility] Address:[address] [place], [place] [address]Result Comment: <200 mg/dL, Desirable 200-239 mg/dL, Borderline high >239 mg/dL, HighPerformed By: #### 71792-6, LIPNF ####[facility] LABIA [id number] [address] [place] [address] [place] STATES OF AMERICAHDL CHOLESTEROL, NF51 mg/dLNormal>39[facility] Comment on above:Order Comment: Specimen Type: BLOOD SPECIMENOrdering Facility: [facility] Address:[address] [place], [place] [address]Result Comment: 40-59 mg/dL, Acceptable >59 mg/dL, High: Negative risk factor for coronary heart disease <40 mg/dL, Low: Positive risk factor for coronary heart diseasePerformed By: #### 93532-6, LIPNF ####[facility] LABCLIA [id number] [address] [address] [facility] SYSTEMLDL CHOLESTEROL, NF59 mg/dLNormal<100[facility] on above: Order Comment: Specimen Type: BLOOD SPECIMENOrdering Facility: [facility] Address:[address] [place], [place] [address]Result Comment: <100 mg/dL, Optimal 100-129 mg/dL, Near optimal/above optimal 130-159 mg/dL, Borderline high 160-189 mg/dL, High >189 mg/dL, Very high Secondary prevention optimal LDL Cholesterol levels are recommended to be < 70 mg/dLPerformed By: #### 12422-8, LIPNF ####[facility] LABIA [id number] [address] LDL/HDL RATIO, NF1.16 mg/dLNormal<2.54[facility] on above:Order Comment: Specimen Type: BLOOD SPECIMENOrdering Facility: [facility] Address:[address] [place], [place] [address]Result Comment: Reference: 1. National Cholesterol Education Program ATP III Guideline At-A-Glance Quick Desk Reference: National Heart, Lung, and Blood [place]. National Institutes of Health. 2001: NIH Publication No. 01-3305. 2. An International Atherosclerosis Society position paper: global recommendations for the management of dyslipidemia: executive summary, Atherosclerosis. 2014: 232(2):410-413.Performed By: #### 31728-9, LIPNF ####[facility] LABIA [id number] [place] [address] [place] AMERICANON HDL CHOL, NF93 mg/dLNormal <130[facility] on above:Order Comment: Specimen Type: BLOOD SPECIMENOrdering Facility: [facility] Address:[address] [place], [place] [address]Result Comment: <130 mg/dL, Optimal 130-159 mg/dL, Near optimal/above optimal 160-189 mg/dL, Borderline high 190-219 mg/dL, High >219 mg/dL, Very high Secondary prevention optimal non HDL Cholesterol levels are recommended to be <100 mg/dLPerformed By: #### 55592-5, LIPNF ####[facility] LABCLIA [id number] [address] OF [facility]ITALT CHOL/HDL RATIO NF2.82 mg/dLNormal<5.10[facility] Comment on above:Order Comment: Specimen Type: BLOOD SPECIMENOrdering Facility: [facility] Address:[address] [place] [address] Performed By: #### 29581-6, LIPNF ####[facility] [id number] [address] STATES [facility] TRIGLYCERIDES, NF168 mg/dLHigh<150Fostoria City HospitalComment on above: Order Comment: Specimen Type: BLOOD SPECIMENOrdering Facility: [facility] Address:[address] [place], [place] [address]Result Comment: <150 mg/dL, Normal 150-199 mg/dL, Borderline high 200-499 mg/dL, High >499 mg/dL, Very highPerformed By: #### 04128-3, LIPNF ####[facility] [id number] [address] STATES OF [facility] HOSPITALVLDL CHOLESTEROL, NF34 mg/dLHigh<30[facility] Comment on above:Order Comment: Specimen Type: BLOOD SPECIMENOrdering Facility: [facility] Address:[address] [place] [address] Performed By: #### 11722-7, LIPNF ####[facility] [id number] [address] STATES [place] Issa 82-71-9700UMIHZskfxfzho ([facility]) MANOLO ROCHE ([id number]) 1935 M Date Time Provider Department 09/22/24 [...] Date Reviewed: 07/06/2024 Reviewed by: Ayana Zavala APRN.LOAN REVIEW OFFICER - Fully Assessed Prescriptions as of 09/22/2024 [...] 5,) crtg Change every 72 hours. - fhmsbb-crcrvxas-wxeaqzr (CREON) 24,000-76,000 -120,000 unit cpDR Take 2 [...] *06/23/2018 Encounter Status:Closed by GAYE MATA on 09/22/24NoSt. John of God HospitalValdemarphone (LIANNA) MANOLO ROCHE ([id number]) 1935 M Date Time Provider Department 09/22/24 [...] Date Reviewed: 07/06/2024 Reviewed by: Ayana Zavala APRN.LOAN REVIEW OFFICER - Fully Assessed Reason for Visit: Omnipod [...] 5,) crtg Change every 72 hours. - umidep-faswmpor-vtliien (CREON) 24,000-76,000 -120,000 unit cpDR Take 2 [...] *06/23/2018 Encounter Status:Closed by GAYE MATA on 09/22/24[facility] 09-44-5506HMXSFsnlndjwa (LIANNA) MANOLO ROCHE ([id number]) 1935 M Date Time Provider Department 09/21/24 GAYE MATA During your visit today, we recorded the following information about you: Allergies As of Date: 09/21/2024 (No Known Allergies) Date Reviewed: 07/06/2024 Reviewed by: Ayana Zavala APRN.LOAN REVIEW OFFICER - Fully Assessed Reason for Visit: Omod [...] 5,) crtg Change every 72 hours. - oeyhfz-zlnkbuwq-pkhxmrg (CREON) 24,000-76,000 -120,000 unit cpDR Take 2 [...] *06/23/2018 Encounter Status:Closed by GAYE MATA on 09/21/24NoBarnesville Hospital BASIC METABOLIC PANELon 28-81-1251Lcnac gap [Moles/Vol]13.1 mmol/L NOMS HealthcareCalcium [Mass/Vol]9 mg/dL8.5 - 10.1 mg/dLNOMS HealthcareChloride [Moles/Vol]99 mmol/L98 - 107 mmol/LNOMS HealthcareCO2 [Moles/Vol]31.2 mmol/L21.0 - 32.0 mmol/LNOMS HealthcareCreatinine [Mass/Vol]1.31 mg/dLHigh0.70 - 1.30 mg/dLNOMS HealthcareGFR/1.73 sq M.predicted CKD-EPI (S/P/Bld) [Vol rate/Area]>60 >=60 mL/min/1.73m 2NOMS HealthcareGlucose [Mass/Vol]385 mg/tVIcfz56 - 106 mg/dL [facility] HealthcarePotassium [Moles/Vol]4.3 mmol/L3.5 - 5.1 mmol/LNOMS Healthcare Sodium [Moles/Vol]139 mmol/L136 - 145 mmol/LNOMS HealthcareTBH EGFR-NON AF MOYOKXJJ11Vhu>=60 mL/min/1.73m 2NOMS HealthcareUrea nitrogen [Mass/Vol]23 mg/dL High7.0 - 18.0 mg/dLNOMS HealthcareUrea nitrogen/Creatinine [Mass ratio]17.6 mg/mgNOMS HealthcareALL PRO BNPon 19-87-2885TY PRO B TYPE NATRIURETIC [id number] pg/mLCritically highNINF - 1800.0 pg/mLNOMS HealthcareComment on above:RESULTS CALLED TO ZENAIDA SANDOVAL RN AT [facility] Panel Informationon 09-13-2024 Interpretation and review of laboratory resultsAbnormalNOVT HealthcareCLINISYNC NOMS HealthcareCNNURSEon 50-00-2894QKDLRWMHhzvl Visit (LIANNA) MANOLO ROCHE ([id number]) 1935 M Date Time Provider Department 09/04/24 1:00 PM GAYE MATA During your visit today, we recorded the following information about you: Gaye Mata, KARIN 09/04/2024 3:22 PM Signed DIABETES SELF-MANAGEMENT EDUCATION AND SUPPORT FOLLOW-UP VISIT Type of Diabetes: Type 2 Location: [place] Type of visit: In person individual Types [...] meter for manual fingersticks, not connected to Moverod PaeDae Type of visit: In person individual Patient [...] Name: Insulet Omnipod? 5 System Serial Number: [id number] Sync Date: 09/04/24 Device Time Offset (hh:mm): +00:00 Device Name: Insulet Omnipod Dash? System Serial Number: [id number] Sync Date: 03/05/22 Device Time Offset (hh:mm): +00:00 Device Name: Insulet Omnipod Dash? System Serial Number: [id number] Sync Date: 11/14/21 Device Time Offset (hh:mm): +00:00 Device Name: Insulet Omnipod DASH? [place] Serial Number: Insulet Dash Sync Date: 09/19/20 Device Time Offset (hh:mm): +00:00 Device Name: Insulet Omnipod Dash? System Serial Number: [id number] Sync Date: 09/19/20 Device Time Offset (hh:mm): [...] menu to create frequ (more content not included)...NormalMercy Health Willard Hospitalon 65-91-2256GGBMTwtuekhqd (LIANNA) MANOLO ROCHE ([id number]) 1935 M Date Time Provider Department 08/31/24 [...] Omnipod, Glooko, and Dexcom G7, his smartphone, OmnipNEXGRID 5 controller phone fully charged and updated if needed so the pump start will go smoothly. requested email resent to her with instructions on day of training information to [email or web address] Allergies As of Date: 08/31/2024 (No Known Allergies) Date Reviewed: 07/06/2024 Reviewed by: Ayana Zavala APRN.LOAN REVIEW OFFICER - Fully Assessed Reason for Visit: Appointment [...] 5,) crtg Change every 72 hours. - ycjsnb-mbmewvof-msotbps (CREON) 24,000-76,000 -120,000 unit cpDR Take 2 [...] *06/23/2018 Encounter Status:Closed by GAYE MATA on 08/31/24NoSt. John of God HospitalCNPNon 06-48-6381ZNZUQrpjkeirr (ENDOLN) MANOLO ROCHE ([id number]) 1935 M Date Time Provider Department 08/15/24 AYANA ZAVALA ENDOLN During your visit today, we recorded the following information about you: Miguel A Goodwin MA 08/15/2024 10:24 AM Signed Received a fax from [employer] for a physician's order. Placed on Ayana's desk for signature on form and chart notes. Miguel A Goodwin MA 08/15/2024 11:57 AM Signed Form completed, faxed, confirmation received. Sent for scan. Allergies As of Date: 08/15/2024 (No Known Allergies) Date Reviewed: 07/06/2024 Reviewed by: Ayana Zavala APRN.LOAN REVIEW OFFICER - Fully Assessed Reason for Visit: Forms [913] Cmt: [employer]- Physcians order Prescriptions as of 08/15/2024 - [...] 5,) crtg Change every 72 hours. - hplxis-zficfwyq-tremvui (CREON) 24,000-76,000 -120,000 unit cpDR Take 2 [...] *06/23/2018 Encounter Status:Closed by ERICK PEGUERO on 08/15/24[facility] Centerdanuta 88-30-3300BARJWfszkbggb (ENDOLN) MANOLO ROCHE ([id number]) 1935 M Date Time Provider Department 08/09/24 AYANA ZAVALA During your visit today, we recorded the following information about you: Sheryl Ny MA 08/09/2024 10:39 AM Signed A form has been received from [employer] for [facility] steen. Faxed [facility] note 07/06/24 to [phone]. Confirmation received. Allergies As of Date: 08/09/2024 (No Known Allergies) Date Reviewed: 07/06/2024 Reviewed by: Ayana Zavala APRN.LOAN REVIEW OFFICER - Fully Assessed Reason for Visit: Forms [303] Cmt: [facility] - [facility] note Prescriptions as [...] 5,) crtg Change every 72 hours. - immubp-hswalfca-qgxjjiz (CREON) 24,000-76,000 -120,000 unit cpDR Take 2 [...] *06/23/2018 Encounter Status:Closed by SHERYL [place] on 08/09/24[facility] Centeron 98-74-8326VHNLVRZLvsrh Visit ([facility]) MANOLO ROCHE ([id number]) 1935 M Date Time Provider Department 07/25/24 1:00 PM GAYE MATA During your visit today, we recorded the following information about you: Gaye Mata, RN 07/25/2024 5:09 PM Signed DIABETES CARE AND EDUCATION VISIT Location: [place] Type of visit: In person individual PATIENT'S [...] - - - - DEVICES Device Name: Avanzit? System Serial Number: [id number] Sync Date: 07/06/24 Device Time Offset (hh:mm): [...] basics AND daily use and CGM type: [employer] G7 with reader. Patient understand he will need to download [employer] G7 eliane on his Iphone SE. Patient unable to recall log in for Dexcom eliane. Patient downloaded G6 eliane, not G7 eliane. Educator needed to call [employer] for assistance in resetting password as patient [...] terminology: basal, bolus, carb ratio, BG target, omzxrdc-mr-fnnuw/duration, and patient did not bring insulin vials with him so we were unable to start pump today. Patient and leaving for [place] for a month tomorrow and has rescheduled [...] TOPICS: 1. Patient and to return after [place] trip to start Omnipod 5 switch from [...] vials or have eliane (more content not included)...NormalWood [facility] BASIC METABOLIC PANELon 79-23-0254Zzujl gap [Moles/Vol]16.6 mmol/LNOMS HealthcareCalcium [Mass/Vol]8.8 mg/dL8.5 - 10.1 mg/dLNOVT HealthcareChloride [Moles/Vol]99 mmol/L98 - 107 mmol/L NOMS HealthcareCO2 [Moles/Vol]27.6 mmol/L21.0 - 32.0 mmol/LNOMS Healthcare Creatinine [Mass/Vol]1.12 mg/dL0.70 - 1.30 mg/dLNOVT HealthcareGFR/1.73 sq M.predicted CKD-EPI (S/P/Bld) [Vol rate/Area]>60>=60 mL/min/1.73m 2NOMS HealthcareGlucose [Mass/Vol]297 mg/bBFvpd34 - 106 mg/dLNOVT Healthcare Interpretation and review of laboratory resultsAbnormalNOVT HealthcarePotassium [Moles/Vol]4.2 mmol/L3.5 - 5.1 mmol/LNOMS HealthcareSodium [Moles/Vol]139 mmol/L 136 - 145 mmol/LNOMS HealthcareTBH EGFR-NON AF [facility]>60>=60 mL/min/1.73m 2 NOMS HealthcareUrea nitrogen [Mass/Vol]22 mg/dLHigh7.0 - 18.0 mg/dLNOVT HealthcareUrea nitrogen/Creatinine [Mass ratio]19.6 mg/mgNOVT Healthcare CLINISYNCNOVT HealthcareCNPNon 86-43-3660RYXEGygtnewxy ([facility]) MANOLO ROCHE ([id number]) 1935 M Date Time Provider Department 07/21/24 GAYE MATALeeann During your visit today, we recorded the following information about you: Allergies As of Date: 07/21/2024 (No Known Allergies) Date Reviewed: 07/06/2024 Reviewed by: Ayana Zavala APRN.LOAN REVIEW OFFICER - Fully Assessed Reason for Visit: Appointment [...] 5,) crtg Change every 72 hours. - anmtvx-pwcnxlhd-mooucjv (CREON) 24,000-76,000 -120,000 unit cpDR Take 2 [...] *06/23/2018 Encounter Status:Closed by GAYE MATA on 07/21/24[address] with Estimated Average Gluon 19-61-8938Znpcejn [Mass/Vol]235 mg/dL NormalThe [facility] Physician GroupComment on above:Result Comment: PERFORMED BY: [address] [place] [address] PATHOLOGIST [employer]ATING [employer]PERVISOR ANDRE PERALTA M.D.Performed By: #### GLULS #### Point of Care testing ,HbA1c (Bld) [Mass fraction]9.8 %High4.3-5.6The [facility] Physician GroupComment on above:Result Comment: Increased risk for diabetes: 5.7 - 6.4 diabetes: >6.4 glycemic control for adults with diabetes: <7.0Performed By: #### GLULS #### Point of Care testing ,Acanthocytes [Presence] in Blood by Light microscopyOrdered By: Indra Guillory on 82-42-8402Xybanmmsewne LM Ql (Bld)Acanthocytes [Presence] in Blood by Light microscopyFirelands Regional Medical CenterAlanine aminotransferase [Enzymatic activity/volume] in Serum or PlasmaOrdered By: Indra Guillory on 78-70-3881ZJL [Catalytic activity/Vol]Alanine aminotransferase [Enzymatic activity/volume] in Serum or Plasma7-52[facility] CenterAlbumin [Mass/volume] in Serum or Plasma by Bromocresol green (BCG) dye binding metho Ordered By: Indra Guillory on 18-23-2652Daasqxd BCG dye [Mass/Vol]Albumin [Mass/volume] in Serum or Plasma by Bromocresol green (BCG) dye binding metho 3.5-5.7FCincinnati Shriners HospitalAlkaline phosphatase [Enzymatic activity/volume] in Serum or PlasmaOrdered By: Indra Guillory on 07-17-2024 ALP [Catalytic activity/Vol]Alkaline phosphatase [Enzymatic activity/volume] in Serum or OavazyWptp21-114FlhlosadeUniversity Hospitals Tripoint Medical CenterAnisocytosis LM Ql (Bld)Ordered By: Indra Guillory on 38-75-9812Aesxxacpmxzh Ql (Bld) Anisocytosis [Presence] in Blood by Light microscopyUniversity Hospitals Tripoint Medical CenterAspartate aminotransferase [Enzymatic activity/volume] in Serum or Plasma Ordered By: Indra Guillory on 50-59-7451FLR [Catalytic activity/Vol] Aspartate aminotransferase [Enzymatic activity/volume] in Serum or Lreund89-31 [facility] CenterBand form neutrophils/100 WBC Manual cnt (Bld) Ordered By: Indra Guillory on 62-25-8618Xslb form neutrophils/100 WBC (Bld) Peripheral white blood cell differential % bands, microscopic exam0-5FCincinnati Shriners HospitalBasophils Auto (Bld) [#/Vol]Ordered By: Indra Guillory on 98-48-5956Diaveawxd (Bld) [#/Vol]Automated basophil countUniversity Hospitals Tripoint Medical CenterBasophils/100 WBC Auto (Bld)Ordered By: Indra Guillory on 96-99-1988Smmyahowe/100 WBC (Bld)Automated basophil %[facility] CenterBilirubin.total [Mass/volume] in Serum or PlasmaOrdered By: Indra Guillory on 27-43-0116Ovytkrrvj [Mass/Vol]Bilirubin.total [Mass/volume] in Serum or Plasma0.3-1.0[facility] CenterBioFire Not Detectedon 03-48-3908YszUpzl Not DetectedNot detectedNormalNot DetecteThe [facility] Physician GroupComment on above:Result Comment: This is a duplicate RP2.1 COVID (PCR) result to be used for statistical tracking purpose only. PERFORMED BY: [facility] [address] [place] [address] PATHOLOGIST [employer] SUPERVISOR ANDRE PERALTA M.D.Performed By: #### GLULS #### Point of Care testing ,Blood estimated average glucose determination by estimation from glycated hemoglobinOrdered By: Indra Guillory on 69-26-8020Ezcedbm glucose Estimated from glycated hemoglobin (Bld) [Mass/Vol]Glucose mean value [Mass/volume] in Blood Estimated from glycated hemoglobinUniversity Hospitals Tripoint Medical CenterBurr cells [Presence] in Blood by Light microscopyOrdered By: Indra Guillory on 70-86-6330Tqqx cells LM Ql (Bld)[place] cells [Presence] in Blood by Light microscopyUniversity Hospitals Tripoint Medical CenterCOVID-19 Detected/Not DetectedOrdered By: Indra Guillory on 18-89-9842XNGD-CoV-2 (COVID-19) RNA ANASTASIA+non-probe Ql (Nph)Not detectedNot DetectWayne HospitalComment on above: This is a duplicate RP2.1 COVID (PCR) result to be used for statistical tracking purpose only.Calcium [Mass/volume] in Serum or PlasmaOrdered By: Indra Guillory on 92-35-7898Ssaoxhk [Mass/Vol]Calcium [Mass/volume] in Serum or Plasma8.6-10.3FCincinnati Shriners HospitalCarbon dioxide, total [Moles/volume] in Serum or PlasmaOrdered By: Indra Guillory on 07-17-2024 CO2 [Moles/Vol]Carbon dioxide, total [Moles/volume] in Serum or Qayxov17.0-31.0 [facility] CenterChloride [Moles/volume] in Serum or Plasma Ordered By: Indra Guillory on 76-97-0516Bukoubhd [Moles/Vol]Chloride [Moles/volume] in Serum or AcyeipVsw42-010CiqmibrecUniversity Hospitals Tripoint Medical Center Comprehensive Metabolic Panelon 24-94-5502Xnwhxak [Mass/Vol]3.6 g/dLNormal 3.5-5.7The [facility] Physician GroupComment on above:Performed By: #### GLULS #### Point of Care testing ,Albumin/Globulin [Mass ratio]1.2 {ratio}NormalThe [facility] Comment on above:Performed By: #### GLULS #### Point of Care testing ,ALP [Catalytic activity/Vol]136 U/DVavx19-465Pki [facility] Comment on above:Performed By: #### GLULS #### Point of Care testing ,ALT [Catalytic activity/Vol]18 U/LNormal7-52The [facility] Comment on above:Performed By: #### GLULS #### Point of Care testing ,Anion gap [Moles/Vol]11.6 mmol/LNormal6.0-15.0The [facility] Comment on above:Performed By: #### GLULS #### Point of Care testing ,AST [Catalytic activity/Vol]20 U/QQjddyk27-00Brf [facility] Comment on above:Performed By: #### GLULS #### Point of Care testing ,Bilirubin [Mass/Vol]0.6 mg/dLNormal0.3-1.0The [facility] Physician GroupComment on above:Performed By: #### GLULS #### Point of Care testing ,Calcium [Mass/Vol]8.8 mg/dLNormal8.6-10.3The [facility] Physician GroupComment on above:Performed By: #### GLULS #### Point of Care testing ,Chloride [Moles/Vol]96 mmol/IViv41-736Wip [facility] Physician GroupComment on above:Performed By: #### GLULS #### Point of Care testing ,CO2 [Moles/Vol]28.2 mmol/LBorydm89.0-31.0The [facility] Physician GroupComment on above:Performed By: #### GLULS #### Point of Care testing ,Creatinine [Mass/Vol]1.03 mg/dLNormal0.70-1.30The [facility] Comment on above:Performed By: #### GLULS #### Point of Care testing ,Creatinine Clr Calc Wxwhyuit99.38NormHCA Florida [facility] Hospital Physician GroupComment on above:Result Comment: PERFORMED BY: [facility] [place] [place] [address] PATHOLOGIST [employer] SUPER[employer] ANDRE PERALTA M.D.Performed By: #### GLULS #### Point of Care testing ,GFR/1.73 sq M.predicted MDRD (S/P/Bld) [Vol rate/Area]mL/min/{1.73_m2}NormalThe [facility] Physician GroupComment on above:Performed By: #### GLULS #### Point of Care testing ,Globulin (S) [Mass/Vol]3.0 g/dLNoCape Fear/Harnett Health Physician GroupComment on above:Performed By: #### GLULS #### Point of Care testing ,Glucose [Mass/Vol]443 mg/dLSignificant change kt11-209Tpz [facility] Physician GroupComment on above:Result Comment: Random Glucose Reference Range is dependent on time and content of last meal. Glucose of more than 200 mg/dL in a nonstressed, ambulatory subject supports the diagnosis of Diabetes Mellitus. ADA recommended reference rangePerformed By: #### GLULS #### Point of Care testing ,Potassium [Moles/Vol]4.8 mmol/LNormal3.5-5.1The [facility] Comment on above:Performed By: #### GLULS #### Point of Care testing ,Protein [Mass/Vol]6.6 g/dLNormal6.4-8.9The [facility] Physician GroupComment on above:Performed By: #### GLULS #### Point of Care testing ,Sodium [Moles/Vol]131 mmol/HQzg737-182Bvi [facility] Physician GroupComment on above:Performed By: #### GLULS #### Point of Care testing ,Urea nitrogen [Mass/Vol]20 mg/dLNormal7-25The [facility] Physician GroupComment on above:Performed By: #### GLULS #### Point of Care testing ,Creatinine [Mass/volume] in Serum or PlasmaOrdered By: Indra Guillory on 70-35-4926Hlxhimyxmg [Mass/Vol]Creatinine [Mass/volume] in Serum or Plasma 0.70-1.30[facility] CenterDiff and CBCon 42-16-9277Geiimtbvzgcr MarkedGadsden Community Hospital Physician GroupComment on above:Performed By: #### GLULS #### Point of Care testing ,Anisocytosis Ql (Bld)ModerateGadsden Community Hospital Physician GroupComment on above:Performed By: #### GLULS #### Point of Care testing ,Band form neutrophils/100 WBC (Bld)1 %Normal0-5The [facility] Physician [facility] Comment on above:Performed By: #### GLULS #### Point of Care testing ,Crenated RBCModerateGadsden Community Hospital Physician GroupComment on above: Performed By: #### GLULS #### Point of Care testing ,Erythrocyte distribution width (RBC) [Ratio]19.7 %High12.0-14.8The [facility] Physician GroupComment on above:Performed By: #### GLULS #### Point of Care testing ,Helmet CellsSlightGadsden Community Hospital Physician GroupComment on above:Performed By: #### GLULS #### Point of Care testing ,Hematocrit (Bld) [Volume fraction]37.8 %Low38.8-50.0The [facility] Physician GroupComment on above:Performed By: #### GLULS #### Point of Care testing ,Hemoglobin (Bld) [Mass/Vol]12.4 g/dLLow13.0-17.0[facility] Physician [facility] Comment on above:Performed By: #### GLULS #### Point of Care testing ,HypochromasiaMarkedGadsden Community Hospital Physician GroupComment on above: Performed By: #### GLULS #### Point of Care testing ,Lymphocytes/100 WBC (Bld)18 %Ewvxhh20-17Iye [facility] Physician GroupComment on above:Performed By: #### GLULS #### Point of Care testing ,MCH (RBC) [Entitic mass]26.3 pgLow27.5-35.2The [facility] Physician GroupComment on above:Performed By: #### GLULS #### Point of Care testing ,MCV (RBC) [Entitic vol]80.0 fLLow83.5-101The [facility] Physician GroupComment on above:Performed By: #### GLULS #### Point of Care testing ,Mean Corpuscular HGB Conc32.8 g/gEDkxgqr71.5-35.6The [facility] Comment on above:Performed By: #### GLULS #### Point of Care testing ,MicrocytosisSlightGadsden Community Hospital Physician GroupComment on above:Performed By: #### GLULS #### Point of Care testing ,Monocytes/100 WBC (Bld)4 %Normal2-11The [facility] Physician GroupComment on above:Performed By: #### GLULS #### Point of Care testing ,Platelet EstimateNormalNormalGadsden Community Hospital Physician GroupComment on above:Performed By: #### GLULS #### Point of Care testing ,Platelet mean volume (Bld) [Entitic vol]11.0 fLHigh6.6-10.1The [facility] Physician GroupComment on above:Performed By: #### GLULS #### Point of Care testing ,Platelet MorphologyNormalNormalGadsden Community Hospital Physician GroupComment on above:Result Comment: PERFORMED BY: [facility] [address] [place] [address] PATHOLOGIST [employer] SUPERVISOR ANDRE PERALTA M.D.Performed By: #### GLULS #### Point of Care testing ,Platelets (Bld) [#/Vol]229 10*3/xGMwyhiz388-348VliSt. Dominic Hospital Comment on above:Performed By: #### GLULS #### Point of Care testing ,PoikilocytosisMarkedGadsden Community Hospital Physician GroupComment on above: Performed By: #### GLULS #### Point of Care testing ,PolychromasiaSlightNoCape Fear/Harnett Health Physician GroupComment on above: Performed By: #### GLULS #### Point of Care testing ,RBC (Bld) [#/Vol]4.73 10*6/uLNormal3.90-5.60[facility] Physician [facility] Comment on above:Performed By: #### GLULS #### Point of Care testing ,SchistocytesModerateGadsden Community Hospital Physician GroupComment on above: Performed By: #### GLULS #### Point of Care testing ,Segmented neutrophils/100 WBC (Bld)77 %Huzu97-66Ojd [facility] Comment on above:Performed By: #### GLULS #### Point of Care testing ,Target CellsModLarkin Community Hospital Physician GroupComment on above: Performed By: #### GLULS #### Point of Care testing ,WBC (Bld) [#/Vol]4.8 10*3/uLNormal4.1-10.5The [facility] Physician GroupComment on above:Performed By: #### GLULS #### Point of Care testing ,Eosinophils Auto (Bld) [#/Vol]Ordered By: Indra Guillory on 07-17-2024 Eosinophils (Bld) [#/Vol]Automated eosinophil countUniversity Hospitals Tripoint Medical CenterEosinophils/100 WBC Auto (Bld)Ordered By: Indra Guillory on 50-29-7495Ejyuppubmii/100 WBC (Bld)Automated eosinophil %[facility] Medical CenterErythrocyte distribution width Auto (RBC) [Ratio]Ordered By: Indra Guillory on 45-79-3511Txhzxruirec distribution width (RBC) [Ratio] Erythrocyte distribution width [Ratio] by Automated lqdldAiis74.0-14.8[facility] Medical CenterErythrocyte morphology finding [Identifier] in Blood Ordered By: Indra Guillory on 93-99-9148ALV morphology finding Nom (Bld)RBC morphologyUniversity Hospitals Tripoint Medical CenterGlobulin Calc (S) [Mass/Vol]Ordered By: Indra Guillory on 90-49-8754Senztasf (S) [Mass/Vol]Serum globulin measurement by calculation (mass/volume)[facility] Medical CenterGlucose Glucometer (BldC) [Mass/Vol]Ordered By: Lisa Hidalgo on 23-34-2063Dpxyepl [Mass/Vol]Capillary blood glucose measurement by glucometer (mass/volume) [facility] CenterComment on above:Random Glucose Reference Range is dependent on time and content of last meal. Glucose of more than 200 mg/dL in a nonstressed, ambulatory subject supports the diagnosis of Diabetes Mellitus.Glucose Poct Glucometerson 68-52-7385Weyaoad [Mass/Vol]299 mg/dLNormal The [facility] Physician GroupComment on above:Result Comment: Random Glucose Reference Range is dependent on time and content of last meal. Glucose of more than 200 mg/dL in a nonstressed, ambulatory subject supports the diagnosis of Diabetes Mellitus. PERFORMED BY: [place] [id number] PATHOLOGIST [employer]ATING [employer] SUPERVISOR ANDRE PERALTA M.D.Performed By: #### GLULS ####Point of Care testing, Glucose [Mass/Vol]341 mg/dLNoCape Fear/Harnett Health Physician GroupComment on above: Result Comment: Random Glucose Reference Range is dependent on time and content of last meal. Glucose of more than 200 mg/dL in a nonstressed, ambulatory subject supports the diagnosis of Diabetes Mellitus. PERFORMED BY: [address] [place] [address] PATHOLOGIST T[employer]ATING [employer]ANT SUPERVISOR ANDRE PERALTA M.D.Performed By: #### GLULS #### Point of Care testing ,Glucose [Mass/Vol]386 mg/dLNoCape Fear/Harnett Health Physician GroupComment on above: Result Comment: Random Glucose Reference Range is dependent on time and content of last meal. Glucose of more than 200 mg/dL in a nonstressed, ambulatory subject supports the diagnosis of Diabetes Mellitus. PERFORMED BY: [address] [address] PATHOLOGIST T[employer]ATING [employer]ANT SUPERVISOR ANDRE PERALTA M.D.Performed By: #### GLULS ####Point of Care testing, Pmlsnbz7LuambkKzyGadsden Community Hospital Physician GroupComment on above:Result Comment: Glu2: Will Repeat TestPerformed By: #### GLULS #### Point of Care testing ,Runxrmx3NGWM NOTIFY DR/KARINSteven Community Medical CenterComment on above: Performed By: #### GLULS #### Point of Care testing ,Osmszei9Cbqtwmw MeterGadsden Community Hospital Physician GroupComment on above:Result Comment: PERFORMED BY: [place] [address] PATHOLOGIST T[employer]ATING [employer] SUPERVISOR ANDRE PERALTA M.D.Performed By: #### GLULS #### Point of Care testing ,Glucose [Mass/Vol]406 mg/dLOff scale [facility] Physician GroupComment on above:Result Comment: Random Glucose Reference Range is dependent on time and content of last meal. Glucose of more than 200 mg/dL in a nonstressed, ambulatory subject supports the diagnosis of Diabetes Mellitus.Performed By: #### GLULS #### Point of Care testing ,Xhyrmat8UhpoucDcs[address] Physician GroupComment on above:Result Comment: Glu2: WILL NOTIFY DR/RN PERFORMED BY: [place] [address] PATHOLOGIST T[employer]ATING [employer] SUPERVISOR ANDRE PERALTA M.D.Performed By: #### GLULS #### Point of Care testing ,Glucose [Mass/Vol]451 mg/dLOff scale [facility] Physician GroupComment on above:Result Comment: Random Glucose Reference Range is dependent on time and content of last meal. Glucose of more than 200 mg/dL in a nonstressed, ambulatory subject supports the diagnosis of Diabetes Mellitus.Performed By: #### GLULS #### Point of Care testing ,Tbcwdjf8LiqllhFlc[address] Physician GroupCompranay on above:Result Comment: Glu2: Will Repeat Test PERFORMED BY: [place] [address] PATHOLOGIST T[employer]ATING [employer]ANT SUPERVISOR ANDRE PERALTA M.D.Performed By: #### GLULS #### Point of Care testing ,Glucose [Mass/Vol]444 mg/dLOff scale [facility] Physician GroupComment on above:Result Comment: Random Glucose Reference Range is dependent on time and content of last meal. Glucose of more than 200 mg/dL in a nonstressed, ambulatory subject supports the diagnosis of Diabetes Mellitus.Performed By: #### GLULS #### Point of Care testing ,Glucose [Mass/volume] in Serum or PlasmaOrdered By: Indra Guillory on 46-22-9839Aczdtzg [Mass/Vol]Glucose [Mass/volume] in Serum or PlasmaInvalid Interpretation Aiwo06-309BhxkamjkpUniversity Hospitals Tripoint Medical CenterComment on above: Delta: 191 on 07/16/24-0ADA recommended reference rangeRandom Glucose Reference Range is dependent on time and content of last meal. Glucose of more than 200 mg/dL in a nonstressed, ambulatory subject supports the diagnosis of Diabetes Mellitus.Helmet cells [Presence] in Blood by Light microscopyOrdered By: Indra Guillory on 54-23-2007Dzxjas cells LM Ql (Bld)Helmet cell detectionUniversity Hospitals Tripoint Medical CenterHematocrit Auto (Bld) [Volume fraction]Ordered By: Indra Guillory on 71-08-5213Ewhmxukhpn (Bld) [Volume fraction]Hematocrit [Volume Fraction] of Blood by Automated inzfyKyk69.8-50.0 [facility] CenterHemoglobin A1c/Hemoglobin.total in BloodOrdered By: Indra Guillory on 79-02-5007SxU5r (Bld) [Mass fraction]Hemoglobin A1c percentageHigh4.3-5.6FCincinnati Shriners HospitalComment on above:Increased risk for diabetes: 5.7 - 6.4diabetes: >6.4glycemic control for adults with diabetes: <7.0Hemoglobin [Mass/volume] in BloodOrdered By: Indra Guillory on 15-77-2590Vabwfkyulu (Bld) [Mass/Vol]Hemoglobin [Mass/volume] in IrfftCzq92.0-17.0[facility] Medical CenterHypochromia LM Ql (Bld)Ordered By: Indra Guillory on 01-96-3440Cwxaidhgtjf Ql (Bld)Hypochromia [Presence] in Blood by Light microscopyUniversity Hospitals Tripoint Medical CenterINR in Platelet poor plasma by Coagulation assayOrdered By: Indra Guillory on 68-35-8683VHX Coag (PPP) [Relative time]INR in Platelet poor plasma by Coagulation assay [facility] Medical CenterComment on above:INR Therapeutic Range A) [...] [id number] Received: 07/17/24 Status: LYUDMILA Gómez Num: [id number] Spec Type: Impression Subm Dr: Indra Guillory MD Tissues: PATHPER Procedures: PATHREVIEW Age/ Patient Sex Location Account Attending Physician Manolo Roche 89/M 4N [id number] Lisa Hidalgo MD SPEC NUM: [id number] RECD: 07/17/24 STATUS: LYUDMILA REQ NUM: [id number] MARANDA: 07/17/24 DR: Indra Guillory MD ENTERED: 07/17/[address]: SPEC TYPE: Impression DEPT: [place] ORDERED: PATHREVIEW ORDERED: PATHREVIEW Pathologist Review Abnormal [...] CBC laboratory follow- ups are also suggested [facility] [id number] Specimen: Received: 07/17/24 Status: LOVELeeann Gómez Num: [id number] Spec Type: Impression Subm Dr: Idnra Guillory MD Tissues: PATHPER Procedures: PATHREVIEW Patient: Manolo Roche [id number] (Continued) Specimen: Received: 07/17/24 (Continued) Signed (signature on file) Donovan Bunch MD 07/17/24 1128 Specimen: Received: 07/17/24 Status: LYUDMILA Gómez Num: [id number] Spec Type: Impression Subm Dr: Indra Guillory MD Tissues: PATHPER Procedures: PATHREVIEW Patient: Manolo Roche [id number] (Continued) Specimen: [id number] Received: 07/17/24-851 (Continued) CBC Date Time Test Result Flag (u) Normal Range 07/16/24 1230 Neut % (Auto) 64.8 . % Lymp % (Auto) 18.9 . % Tillman % (Auto) 12.8 . % Eos % (Auto) 2.7 . % Baso % (Auto) 0.8 . % NRBC% 0.2 0-0.5 /100 WBC Neut # (Auto) 4.7 1.8-7.7 x10E3/uL Lymph # (Auto) 1.4 1.00-4.8 x10E3/uL Tillman # (Auto) 0.9 H 0.0-0.8 x10E3/uL Eos [...] 1 0-5 % Lymph 18 18-42 % Tillman 4 2-11 % Polychrom Slight Hypochrom Marked Poik Marked Aniso Moderate Micro Slight Schisto Moderate Target Moderate Helmet Cells Slight Crenated RBC Moderate Acantho Marked Plt Est Normal Normal Plt Morphology Normal Normal Specimen: [id number] Received: 07/17/24 Status: LYUDMILA Gómez Num: [id number] Spec Type: Impression Subm Dr: Indra Guillory MD Tissues: PATHPER Procedures: PATHREVIEW Patient: Manolo Roche [id number] (Continued) Signed (signature on file) IreneSalo Julio C (more content not included)...NormalBayfront Health St. Petersburg Emergency Room Physician GroupLeukocytes [#/volume] corrected for nucleated erythrocytes in Blood by Automated counOrdered By: Indra Guillory on 35-46-6627OTE corrected for nucl RBC Auto (Bld) [#/Vol] Leukocytes [#/volume] corrected for nucleated erythrocytes in Blood by Automated coun4.1-10.5FCincinnati Shriners HospitalLymphocytes Auto (Bld) [#/Vol] Ordered By: Indra Guillory on 48-34-5713Mngafjhvdno (Bld) [#/Vol] Lymphocytes [#/volume] in Blood by Automated countUniversity Hospitals Tripoint Medical CenterLymphocytes/100 WBC Auto (Bld)Ordered By: Indra Guillory on 79-38-8969Iguvrzfqady/100 WBC (Bld)Lymphocytes/100 leukocytes in Blood by Automated countUniversity Hospitals Tripoint Medical CenterLymphocytes/100 WBC Manual cnt (Bld)Ordered By: Indra Guillory on 97-25-1859Gwxxufbjbja/100 WBC (Bld) Lymphocytes/100 leukocytes in Blood by Manual dqpce62-56BcbqfwhdlFisher-Titus Medical Center Auto (RBC) [Entitic mass]Ordered By: Indra Guillory on 60-11-7871NXG (RBC) [Entitic mass]MCH [Entitic mass] by Automated countLow 27.5-35.2FCincinnati Shriners HospitalMCHC Auto (RBC) [Mass/Vol]Ordered By: Indra Guillory on 80-45-1322HKAW (RBC) [Mass/Vol]MCHC [Mass/volume] by Automated count32.5-35.6FSelect Medical Specialty Hospital - CantonV Auto (RBC) [Entitic vol]Ordered By: Indra Guillory on 89-65-6383IQP (RBC) [Entitic vol]MCV [Entitic volume] by Automated munbkHhq02.5-101[facility] [facility] Microcytes LM Ql (Bld)Ordered By: Indra Guillory on 72-53-9429Ybuzvyrxhk Ql (Bld)Microcytes [Presence] in Blood by Light microscopyUniversity Hospitals Tripoint Medical CenterMonocytes Auto (Bld) [#/Vol]Ordered By: Indra Guillory on 95-83-7925Axetwkycz (Bld) [#/Vol]Automated blood monocyte countUniversity Hospitals Tripoint Medical CenterMonocytes/100 WBC Auto (Bld)Ordered By: Indra Guillory on 45-49-1715Kkcjujgjv/100 WBC (Bld)Automated monocyte %[facility] CenterMonocytes/100 WBC Manual cnt (Bld)Ordered By: Indra Guillory on 19-16-9005Dgzaniphx/100 WBC (Bld)Monocytes/100 leukocytes in Blood by Manual count2-11[facility] Medical CenterNeutrophils Auto (Bld) [#/Vol]Ordered By: Indra Guillory on 06-60-2172Ufudjsccnzd (Bld) [#/Vol] Neutrophils [#/volume] in Blood by Automated countUniversity Hospitals Tripoint Medical CenterNeutrophils/100 WBC Auto (Bld)Ordered By: Indra Guillory on 01-09-6132Pibpnhrylza/100 WBC (Bld)Automated neutrophil %[facility] CenterNo Panel InformationOrdered By: Indra Guillory on 07-17-2024 Bedside Glucose #[address]/[place] Bedside Glucose #3 CommentCleaned meterUniversity Hospitals Tripoint Medical CenterBedside Glucose CommentSee commentUniversity Hospitals Tripoint Medical CenterComment on above: Glu2: Will Repeat TestEstimated GFR (CKD-EPI)> 60.0 mL/MinUniversity Hospitals Tripoint Medical CenterPharmacy Creatinine Clearance (Chem45.38[facility] Memorial Hospitallides for Pathologist ReviewOrdered path reviewUniversity Hospitals Tripoint Medical CenterNucleated erythrocytes [Presence] in Blood by Automated count Ordered By: Indra Guillory on 98-77-0111Jweperhhs RBC Auto Ql (Bld) Nucleated erythrocytes [Presence] in Blood by Automated countUniversity Hospitals Tripoint Medical CenterPartial Thromboplastin Timeon 28-14-5895dEBN Coag (Bld) [Time]30.6 pXslggm38.1-36.5The [facility] Physician GroupComment on above:Result Comment: A hematocrit value greater than 55% may lead to inaccurate results in coagulation testing. Patients having hematocrit values >55% require a special collection tube for coagulation studies. Please contact the laboratory at [phone] for redraw instructions. PERFORMED BY: [address] [address] PATHOLOGIST [employer]ATING [employer]PERVISOR ANDRE PERALTA M.D.Performed By: #### GLULS #### Point of Care testing ,Pathologist Slide Reviewon 04-05-8122Tchunxnwnym Slide ReviewOrdered Path ReviewNoCape Fear/Harnett Health Physician GroupComment on above:Result Comment: PERFORMED BY: [address] [place] [address] PATHOLOGIST [employer] SUPERVISOR ANDRE PERALTA M.D.Performed By: #### GLULS #### Point of Care testing ,Pathology study report documentOrdered By: Donovan Bunch on 07-17-2024 Pathology studyUniversity Hospitals Tri[facility] Medical Center Other Platelet adequacy [Presence] in Blood by Light microscopyOrdered By: Indra Guillory on 46-72-4876Zrplvxnpu LM Ql (Bld) Platelet adequacy [Presence] in Blood by Light microscopyNoJoint Township District Memorial HospitalPlatelet mean volume Auto (Bld) [Entitic vol]Ordered By: Indra Guillory on 71-74-7293Llpkaaev mean volume (Bld) [Entitic vol] Platelet mean volume [Entitic volume] in Blood by Automated countHigh6.6-10.1 [facility] CenterPlatelet morphology finding [Identifier] in BloodOrdered By: Indra Guillory on 76-47-8238Ucygrtkx morphology finding Nom (Bld)Platelet morphology finding [Identifier] in BloodNoJoint Township District Memorial HospitalPlatelets Auto (Bld) [#/Vol]Ordered By: Indra Guillory on 67-19-5985Hmankkrse (Bld) [#/Vol]Platelets [#/volume] in Blood by Automated fchya861-088PgjfsptmmUniversity Hospitals Tripoint Medical CenterPoikilocytosis [Presence] in Blood by Light microscopyOrdered By: Indra Guillory on 07-17-2024 Poikilocytosis LM Ql (Bld)Poikilocytosis [Presence] in Blood by Light microscopy [facility] CenterPolychromasia [Presence] in Blood by Light microscopyOrdered By: Indra Guillory on 13-17-7244Gqmcecmkfrqkh LM Ql (Bld) Polychromasia [Presence] in Blood by Light microscopyUniversity Hospitals Tripoint Medical CenterPotassium [Moles/volume] in Serum or PlasmaOrdered By: Indra Guillory on 81-50-3300Rvsnktahs [Moles/Vol]Potassium [Moles/volume] in Serum or Plasma 3.5-5.1FCincinnati Shriners HospitalProtein [Mass/volume] in Serum or Plasma Ordered By: Indra Guillory on 82-59-3614Tjihtvp [Mass/Vol]Protein [Mass/volume] in Serum or Plasma6.4-8.9[facility] Prothrombin Time INRon 43-72-9476TOA Coag (PPP) [Relative time]1.3 {INR}Normal The [facility] Physician GroupComment on above:Result Comment: INR Therapeutic [...] Care testing ,PT Coag (PPP) [Time]14.5 sHigh9.0-12.9The [facility] Physician GroupComment on above:Result Comment: A hematocrit value greater than 55% may lead to inaccurate results in coagulation testing. Patients having hematocrit values >55% require a special collection tube for coagulation studies. Please contact the laboratory at [phone] for redraw instructions.Performed By: #### GLULS #### Point of Care testing ,Prothrombin time (PT)Ordered By: Indra Guillory on 00-60-0346WW Coag (PPP) [Time]Prothrombin time (PT)High9.0-12.9[facility] CenterComment on above:A hematocrit value greater than 55% may lead to inaccurate results in coagulation testing. Patientshaving hematocrit values >55% require a special collection tube for coagulation studies. Please contact the laboratory at [phone] for redraw instructions.RBC Auto (Bld) [#/Vol]Ordered By: Indra Guillory on 92-83-8331LXJ (Bld) [#/Vol]Erythrocytes [#/volume] in Blood by Automated count3.90-5.60[facility] CenterRespiratory (Upper) Panel, PCRon 07-62-2580Gsdjbyzkrwe (Upper) Panel, PCRResults called at 0548 on [...] Influenza A H3 Blank Space PERFORMED BY: [facility] [address] [place] [address] PATHOLOGIST [employer]PERVISOR ANDRE PERALTA M.D.NormalThe [facility] Hospital Physician GroupComment on above: Performed By: #### GLULS #### Point of Care testing ,Respiratory pathogens DNA and RNA panel - Nasopharynx by ANASTASIA with non-probe detectionOrdered By: Indra Guillory on 40-20-9006Iyfqfqgljam pathogens DNA and RNA panel ANASTASIA+non-probe (Nph)Respiratory pathogens DNA and RNA panel - Nasopharynx by ANASTASIA with non-probe detectionUniversity Hospitals [facility] Respiratory pathogens DNA and RNA panel ANASTASIA+non-probe (Nph)Respiratory pathogens DNA and RNA panel - Nasopharynx by ANASTASIA with non-probe detectionGrand Lake Joint Township District Memorial Hospitalchistocytes [Presence] in Blood by Light microscopy Ordered By: Indra Guillory on 38-96-7782Hqfytidukpmr LM Ql (Bld) Schistocytes [Presence] in Blood by Light microscopyGrand Lake Joint Township District Memorial Hospitalegmented neutrophils/100 WBC Manual cnt (Bld)Ordered By: Indra Guillory on 79-20-4317Equevcgvy neutrophils/100 WBC (Bld)Manual blood segmented neutrophils/100 ivfikjraajKvtm73-58UzfjjpaccGrand Lake Joint Township District Memorial Hospitalerum or plasma albumin/globulin mass ratioOrdered By: Indra Guillory on 07-17-2024 Albumin/Globulin [Mass ratio]Serum or plasma albumin/globulin mass ratio [facility] Memorial Hospitalerum or plasma anion gap determinationOrdered By: Indra Guillory on 42-91-4393Vhcwd gap [Moles/Vol]Serum or plasma anion gap determination6.0-15.0[facility] Memorial Hospitalodium [Moles/volume] in Serum or PlasmaOrdered By: Indra Guillory on 04-41-0315Dhntew [Moles/Vol]Sodium [Moles/volume] in Serum or JvefrkBbr036-876CzuxffsayUniversity Hospitals Tripoint Medical CenterTarget cells [Presence] in Blood by Light microscopyOrdered By: Indra Guillory on 38-16-3925Koenvq cells LM Ql (Bld)Target cellsUniversity Hospitals Tripoint Medical CenterUrea nitrogen [Mass/volume] in Serum or PlasmaOrdered By: Indra Guillory on 26-51-7485Ovau nitrogen [Mass/Vol]Urea nitrogen [Mass/volume] in Serum or Plasma7[facility] CenterWBC Auto (Bld) [#/Vol]Ordered By: Indra Guillory on 61-45-6202HPK (Bld) [#/Vol] Leukocytes [#/volume] in Blood by Automated count4.1-10.5FCincinnati Shriners HospitalaPTT in Platelet poor plasma by Coagulation assayOrdered By: Indraalexandria Guillory on 90-15-0148yELB Coag (PPP) [Time]Activated partial thromboplastin time (aPTT) in platelet poor plasma by coagulation a25.1-36.5 [facility] CenterComment on above:A hematocrit value greater than 55% may lead to inaccurate results in coagulation testing. Patientshaving hematocrit values >55% require a special collection tube for coagulation studies. Please contact the laboratory at [phone] for redraw instructions. B-Type Natriuretic Peptideon 25-00-5975Yzureikxmco peptide B (Bld) [Mass/Vol] 2052.0 pg/mLHigh5-100The [facility] Physician GroupComment on above:Result Comment: PERFORMED BY: [facility] [address] [place] [address] PATHOLOGIST [employer]PER[employer] ANDRE PERALTA M.D.Performed By: #### PT, BMP, BNP, HS TROP, CK, CBC ####[facility] [address] [place] [address] USABasic Metabolic Panelon 78-51-2265Oahyh gap [Moles/Vol]10.2 mmol/LNormal6.0-15.0The [facility] Physician [facility] CenterComment on above:Performed By: #### PT, BMP, BNP, HS TROP, CK, CBC ####[place] [address] [place] [address] USACalcium [Mass/Vol]8.8 mg/dLNormal8.6-10.3The [facility]ician Group Comment on above:Performed By: #### PT, BMP, BNP, HS TROP, CK, CBC ####[place] [address] USAChloride [Moles/Vol] 99 mmol/LLwrlkz63-783Muo [facility] Physician [facility] CenterComment on above:Performed By: #### PT, BMP, BNP, HS TROP, CK, CBC ####[place] [address] USACO2 [Moles/Vol]28.0 mmol/SLrozia33.0-31.0The [facility] Physician GroupComment on above:Performed By: #### PT, BMP, BNP, HS TROP, CK, CBC ####[place] [address] USACreatinine [Mass/Vol]0.82 mg/dLNormal0.70-1.30The [facility] Physician [facility] CenterComment on above:Performed By: #### PT, BMP, BNP, HS TROP, CK, CBC ####[place] [address] [place] Creatinine Clr Calc Xosgjfio38.91NormalThe [facility] Physician [facility] CenterComment on above:Result Comment: PERFORMED BY: [facility] [address] [place] [address] PATHOLOGIST [employer] SUPER[employer]OR ANDRE PERALTA M.D.Performed By: #### PT, BMP, BNP, HS TROP, CK, CBC ####[place] [address] [place] GFR/1.73 sq M.predicted MDRD (S/P/Bld) [Vol rate/Area]mL/min/{1.73_m2}NormalThe Shriners Hospitals For Children - PhiladelphiaComment on above:Performed By: #### PT, BMP, BNP, HS TROP, CK, CBC ####[place] [address] USAGlucose [Mass/Vol]191 mg/bNYufb41-074Ffa [facility] Physician [facility] Comment on above:Result Comment: Random Glucose Reference Range is dependent on time and content of last meal. Glucose of more than 200 mg/dL in a nonstressed, ambulatory subject supports the diagnosis of Diabetes Mellitus. ADA recommended reference rangePerformed By: #### PT, BMP, BNP, HS TROP, CK, CBC ####[place] [address] [place] Potassium [Moles/Vol]4.2 mmol/LNormal3.5-5.1The [facility] Physician GroupComment on above:Performed By: #### PT, BMP, BNP, HS TROP, CK, CBC ####[place] [address] USASodium [Moles/Vol]133 mmol/QWsq513-139Mor [facility] Physician GroupComment on above:Performed By: #### PT, BMP, BNP, HS TROP, CK, CBC ####[place] [address] [place] [address] USAUrea nitrogen [Mass/Vol]18 mg/dLNormal7-25The [facility] Physician GroupComment on above:Performed By: #### PT, BMP, BNP, HS TROP, CK, CBC ####[place] [address] USABasophils Auto (Bld) [#/Vol]Ordered By: PROVIDER TEMP on 07-16-2024 Basophils (Bld) [#/Vol]Automated basophil count0.0-0.2FCincinnati Shriners HospitalBasophils/100 WBC Auto (Bld)Ordered By: PROVIDER TEMP on 07-16-2024 Basophils/100 WBC (Bld)Automated basophil %.[facility] CenterCT angio chest PE protocolon 45-59-1474NU angio chest PE protocolVETERANS HEALTH ADMINISTRATION [address] [place] [address] [place] [address] CT Scan Report Signed Patient: Manolo Roche MR#: [id number] 353 : 1935 Acct:[id number] Age/Sex: 89 / M ADM Date: 07/16/24 Loc: ER Room: Type: [facility] ER Attending Dr: Copies to: Bertin Smith [...] Sergei Valentin M.D.07/16/2024 4:48 PM Dictation Location: [place] [address] Transcribed By: ERIBERTO 07/16/24 9638 Dictated By: Sergei Valentin II, MD 07/16/24 1636 Signed By: 07/16/24 5428[facility] Physician GroupCalcium [Mass/volume] in Serum or PlasmaOrdered By: PROVIDER TEMP on 85-04-7216Yqkdvvk [Mass/Vol]Calcium [Mass/volume] in Serum or Plasma8.6-10.3FCincinnati Shriners HospitalCarbon dioxide, total [Moles/volume] in Serum or PlasmaOrdered By: PROVIDER TEMP on 51-11-8345AJ0 [Moles/Vol]Carbon dioxide, total [Moles/volume] in Serum or Plasma 21.0-31.0[facility] CenterChloride [Moles/volume] in Serum or PlasmaOrdered By: PROVIDER TEMP on 49-70-8775Frwmdvcz [Moles/Vol]Chloride [Moles/volume] in Serum or Febkhe18-048OgmnjymfvUniversity Hospitals [facility] Medical CenterComplete Blood Count Auto Diffon 45-39-7558Pirkhislm (Bld) [#/Vol]0.1 10*3/uLNormal 0.0-0.2The [facility] Physician GroupComment on above:Result Comment: PERFORMED BY: [facility] [address] [place] [address] PATHOLOGIST [employer]PER[employer] ANDRE PERALTA M.D.Performed By: #### PT, BMP, BNP, HS TROP, CK, CBC ####[place] [address] [place] Basophils/100 WBC (Bld)0.8 %Normal.The [facility] Physician GroupComment on above:Performed By: #### PT, BMP, BNP, HS TROP, CK, CBC ####[place] [address] USAEosinophils (Bld) [#/Vol]0.2 10*3/uLNormal0.0-0.45The [facility] Physician GroupComment on above:Performed By: #### PT, BMP, BNP, HS TROP, CK, CBC ####[place] [address] USAEosinophils/100 WBC (Bld)2.7 %Normal.The [facility] Physician GroupComment on above:Performed By: #### PT, BMP, BNP, HS TROP, CK, CBC ####[place] [address] USAErythrocyte distribution width (RBC) [Ratio]19.9 %High12.0-14.8The [facility] Physician GroupComment on above:Performed By: #### PT, BMP, BNP, HS TROP, CK, CBC ####[place] [address] USAHematocrit (Bld) [Volume fraction]35.8 %Low38.8-50.0The [facility] Physician GroupComment on above:Performed By: #### PT, BMP, BNP, HS TROP, CK, CBC ####[address] Hemoglobin (Bld) [Mass/Vol]11.7 g/dLLow13.0-17.0The [facility] Comment on above:Performed By: #### PT, BMP, BNP, HS TROP, CK, CBC ####[place] [address] USALymphocytes (Bld) [#/Vol]1.4 10*3/uLNormal1.00-4.8The [facility] Physician GroupComment on above: Performed By: #### PT, BMP, BNP, HS TROP, CK, CBC ####[place] [address] USALymphocytes/100 WBC (Bld)18.9 %Normal .The [facility] Physician GroupComment on above:Performed By: #### PT, BMP, BNP, HS TROP, CK, CBC ####[address] StreetH (RBC) [Entitic mass]25.9 pgLow27.5-35.2The [facility] Physician GroupComment on above:Performed By: #### PT, BMP, BNP, HS TROP, CK, CBC ####[address] StreetMCV (RBC) [Entitic vol]79.7 fLLow83.5-101The [facility] Physician GroupComment on above:Performed By: #### PT, BMP, BNP, HS TROP, CK, CBC ####[place] [id number] USAMean Corpuscular HGB Conc32.5 g/wCUsjfef60.5-35.6The [facility] Physician GroupComment on above:Performed By: #### PT, BMP, BNP, HS TROP, CK, CBC ####[place] [address] USAMonocytes (Bld) [#/Vol]0.9 10*3/uLHigh0.0-0.8The [facility] Physician GroupComment on above:Performed By: #### PT, BMP, BNP, HS TROP, CK, CBC ####[place] [address] USAMonocytes/100 WBC (Bld)17.82 %Normal0.00-20.00The [facility] Physician GroupComment on above:Result Comment: For adults in ED, MDW > 20.0 may be associated with a higher risk of sepsis during the first 12 hrs of hospital admissionPerformed By: #### PT, BMP, BNP, HS TROP, CK, CBC ####[place] [address] USAMonocytes/100 WBC (Bld)12.8 %Normal.The [facility] Physician GroupComment on above:Performed By: #### PT, BMP, BNP, HS TROP, CK, CBC ####[place] [address] [place] Neutrophils (Bld) [#/Vol]4.7 10*3/uLNormal1.8-7.7The [facility] Comment on above:Performed By: #### PT, BMP, BNP, HS TROP, CK, CBC ####[place] [id number] USANeutrophils/100 WBC (Bld)64.8 %Normal.The [facility] Physician GroupComment on above:Performed By: #### PT, BMP, BNP, HS TROP, CK, CBC ####[place] [id number] USANRBC%0.2 /100{WBC}Normal0-0.5The [facility] Physician GroupComment on above:Performed By: #### PT, BMP, BNP, HS TROP, CK, CBC ####[address] Platelet mean volume (Bld) [Entitic vol]10.9 fLHigh6.6-10.1The [facility] Physician GroupComment on above:Performed By: #### PT, BMP, BNP, HS TROP, CK, CBC ####[address] Platelets (Bld) [#/Vol]210 10*3/lZQzixiy260-215Bjc [facility] Comment on above:Performed By: #### PT, BMP, BNP, HS TROP, CK, CBC ####[place] [address] USARBC (Bld) [#/Vol] 4.50 10*6/uLNormal3.90-5.60The [facility] Physician GroupComment on above: Performed By: #### PT, BMP, BNP, HS TROP, CK, CBC ####[place] [address] USAWBC (Bld) [#/Vol]7.2 10*3/uLNormal 4.1-10.5The [facility] Physician GroupComment on above:Performed By: #### PT, BMP, BNP, HS TROP, CK, CBC ####[place] [address] USACreatine Kinaseon 61-53-3198SY [Catalytic activity/Vol] 136 U/KUkhhci90-145Isc [facility] Physician GroupComment on above:Performed By: #### PT, BMP, BNP, HS TROP, CK, CBC ####[place] [address] USACreatine kinase [Enzymatic activity/volume] in Serum or PlasmaOrdered By: PROVIDER TEMP on 00-02-1637QZ [Catalytic activity/Vol] Creatine kinase [Enzymatic activity/volume] in Serum or Jfptnb78-607BefzfzhcjUniversity Hospitals Tripoint Medical CenterCreatinine [Mass/volume] in Serum or PlasmaOrdered By: PROVIDER TEMP on 54-38-9129Nzhedjsvbu [Mass/Vol]Creatinine [Mass/volume] in Serum or Plasma0.70-1.30[facility] CenterECG 12 lead ECGon 22-56-0579ZWA 12 [place] [address] Electrocardiograph Report Signed Patient: Manolo Roche MR#: [id number] 353 : 1935 Acct:[id number] Age/Sex: 89 / M ADM Date: 07/16/24 Loc: Room: [address] [place] [address] Type: ADM INOo Attending Dr: Indra Guillory [...] Atrial-paced rhythm Confirmed by Bertin Smith DO ([id number]) on 07/16/2024 8:00:21 PM Referred By: Electronically Signed By: Bertin Smith DO Transcribed By: MUS Signed By Bertin Smith DO [address] [place] [address] Physician GroupECG 12 lead [facility] [address] [place] [id number] Electrocardiograph Report Signed Patient: Manolo Roche MR#: [id number] [birth year] : 1935 Acct:[id number] Age/Sex: 89 / M ADM Date: 07/16/24 Loc: 3T Room: [address] [place] [address] Type: ADM INOo Attending Dr: Indra Guillory [...] Atrial-paced rhythm Confirmed by Bertin Smith DO ([id number]) on 07/16/2024 8:01:11 PM Referred By: Electronically Signed By: Bertin Smith DO Transcribed By: MUS Signed By Bertin Smith DO [address] [place] [address] Physician GroupEosinophils Auto (Bld) [#/Vol] Ordered By: PROVIDER TEMP on 27-49-6018Bwpbatgmcyi (Bld) [#/Vol]Automated eosinophil count0.0-0.45[facility] CenterEosinophils/100 WBC Auto (Bld)Ordered By: PROVIDER TEMP on 07-56-6450Fomvtpxhxha/100 WBC (Bld) Automated eosinophil %.[facility] CenterErythrocyte distribution width Auto (RBC) [Ratio]Ordered By: PROVIDER TEMP on 34-50-3834Zuijwlhakbt distribution width (RBC) [Ratio]Erythrocyte distribution width [Ratio] by Automated dcjcxAxjj55.0-14.8[facility] CenterGlucose Glucometer (BldC) [Mass/Vol]Ordered By: Indra Guillory on 98-64-9582Bwprbaf [Mass/Vol] Capillary blood glucose measurement by glucometer (mass/volume)[facility] CenterComment on above:Random Glucose Reference Range is dependent on time and content of last meal. Glucose of more than 200 mg/dL in a nonstressed, ambulatory subject supports the diagnosis of Diabetes Mellitus. Glucose Poct Glucometerson 51-04-3592Pqkwjos [Mass/Vol]327 mg/dLGadsden Community Hospital Physician GroupComment on above:Result Comment: Random Glucose Reference Range is dependent on time and content of last meal. Glucose of more than 200 mg/dL in a nonstressed, ambulatory subject supports the diagnosis of Diabetes Mellitus. PERFORMED BY: [facility] [address] [place] [address] PATHOLOGIST [employer]ATING [employer] SUPERVISOR MOHAMED M EL-FAKHARANY M.D.Performed By: #### GLULS #### Point of Care testing ,Glucose [Mass/volume] in Serum or PlasmaOrdered By: PROVIDER TEMP on 07-16-2024 Glucose [Mass/Vol]Glucose [Mass/volume] in Serum or PwqionLtpu18-746GbxfjmksvUniversity Hospitals Tripoint Medical CenterComment on above:ADA recommended reference rangeRandom Glucose Reference Range is dependent on time and content of last meal. Glucose of more than 200 mg/dL in a nonstressed, ambulatory subject supports the diagnosisof Diabetes Mellitus.Hematocrit Auto (Bld) [Volume fraction]Ordered By: PROVIDER TEMP on 10-58-0474Pbsiygigax (Bld) [Volume fraction]Hematocrit [Volume Fraction] of Blood by Automated lvmuyCzg53.8-50.0[facility] CenterHemoglobin [Mass/volume] in BloodOrdered By: PROVIDER TEMP on 07-16-2024 Hemoglobin (Bld) [Mass/Vol]Hemoglobin [Mass/volume] in FvauvSyo19.0-17.0 [facility] CenterINR in Platelet poor plasma by Coagulation assayOrdered By: PROVIDER TEMP on 50-31-1137QXS Coag (PPP) [Relative time]INR in Platelet poor plasma by Coagulation assayUniversity Hospitals [facility] Center Comment on above:INR Therapeutic Range [...] by Automated counOrdered By: PROVIDER TEMP on 88-81-7512QCS corrected for nucl RBC Auto (Bld) [#/Vol]Leukocytes [#/volume] corrected for nucleated erythrocytes in Blood by Automated coun4.1-10.5FCincinnati Shriners Hospital Lymphocytes Auto (Bld) [#/Vol]Ordered By: PROVIDER TEMP on 95-15-5269Ypmlgufglfw (Bld) [#/Vol]Lymphocytes [#/volume] in Blood by Automated count1.00-4.8 [facility] CenterLymphocytes/100 WBC Auto (Bld)Ordered By: PROVIDER TEMP on 67-64-2313Fqvsxqubzvp/100 WBC (Bld)Lymphocytes/100 leukocytes in Blood by Automated count.[facility] CenterMCH Auto (RBC) [Entitic mass]Ordered By: PROVIDER TEMP on 73-06-4255RJT (RBC) [Entitic mass]MCH [Entitic mass] by Automated lsrftObp02.5-35.2FCincinnati Shriners Hospital MCHC Auto (RBC) [Mass/Vol]Ordered By: PROVIDER TEMP on 33-69-8357OGVG (RBC) [Mass/Vol]MCHC [Mass/volume] by Automated count32.5-35.6FCincinnati Shriners HospitalMCV Auto (RBC) [Entitic vol]Ordered By: PROVIDER TEMP on 23-40-9908ZBI (RBC) [Entitic vol]MCV [Entitic volume] by Automated countLow 83.5-101[facility] CenterMonocyte distribution width [Entitic volume] in Blood by AutomatedOrdered By: PROVIDER TEMP on 89-18-8215Zunnqagi distribution width Auto (Bld) [Entitic vol]Monocyte distribution width [Entitic volume] in Blood by Automated0.00-20.00[facility] CenterComment on above:For adults in ED, MDW > 20.0 may be associated with a higher risk of sepsis during the first 12 hrs of hospital admissionMonocytes Auto (Bld) [#/Vol] Ordered By: PROVIDER TEMP on 72-69-4582Pdcuouhsg (Bld) [#/Vol]Automated blood monocyte countHigh0.0-0.8[facility] CenterMonocytes/100 WBC Auto (Bld)Ordered By: PROVIDER TEMP on 95-94-7836Kafuthznw/100 WBC (Bld)Automated monocyte %.[facility] Medical CenterNatriuretic peptide B [Mass/Vol] Ordered By: PROVIDER TEMP on 50-36-7038Bvbfwqjtnds peptide B (Bld) [Mass/Vol]BNP ser/plasHigh5-100[facility] Medical CenterNeutrophils Auto (Bld) [#/Vol]Ordered By: PROVIDER TEMP on 83-65-6220Uevqweextye (Bld) [#/Vol] Neutrophils [#/volume] in Blood by Automated count1.8-7.7FCincinnati Shriners HospitalNeutrophils/100 WBC Auto (Bld)Ordered By: PROVIDER TEMP on 33-06-2041Qgyevmwxdqv/100 WBC (Bld)Automated neutrophil %.[facility] CenterNo Panel InformationOrdered By: PROVIDER TEMP on 07-16-2024 Estimated GFR (CKD-EPI)> 60.0 mL/MinUniversity Hospitals Tripoint Medical CenterPharmacy Creatinine Clearance (Chem60.91[facility] Medical CenterNucleated erythrocytes [Presence] in Blood by Automated countOrdered By: PROVIDER TEMP on 07-69-7958Xtcamiqqp RBC Auto Ql (Bld)Nucleated erythrocytes [Presence] in Blood by Automated count0-0.5FCincinnati Shriners HospitalPlatelet mean volume Auto (Bld) [Entitic vol]Ordered By: PROVIDER TEMP on 14-08-2422Esyapwyf mean volume (Bld) [Entitic vol]Platelet mean volume [Entitic volume] in Blood by Automated countHigh6.6-10.1FCincinnati Shriners HospitalPlatelets Auto (Bld) [#/Vol]Ordered By: PROVIDER TEMP on 81-11-8285Pgljvhtty (Bld) [#/Vol]Platelets [#/volume] in Blood by Automated agvmm999-696CghzkbeqcUniversity Hospitals Tripoint Medical Center Potassium [Moles/volume] in Serum or PlasmaOrdered By: PROVIDER TEMP on 14-00-6933Cmzswnjnj [Moles/Vol]Potassium [Moles/volume] in Serum or Plasma 3.5-5.1FCincinnati Shriners HospitalProthrombin Time INRon 17-09-0090EGS Coag (PPP) [Relative time]1.2 {INR}NormalThe [facility] Physician GroupComment on above:Result Comment: INR Therapeutic [...] heart valves: 3 - 4.5 PERFORMED BY: [facility] [place] [address] PATHOLOGIST TREATING PLANT SUPERVISOR ANDRE PERALTA M.D.Performed By: #### PT, BMP, BNP, HS TROP, CK, CBC ####[facility] [address] [place] [address] USAPT Coag (PPP) [Time]14.3 sHigh9.0-12.9The [facility] Hospital Physician GroupComment on above: Result Comment: A hematocrit value greater than 55% may lead to inaccurate results in coagulation testing. Patients having hematocrit values >55% require a special collection tube for coagulation studies. Please contact the laboratory at [phone] for redraw instructions.Performed By: #### PT, BMP, BNP, HS TROP, CK, CBC ####[facility] [address] [place] [address] USAProthrombin time (PT) Ordered By: PROVIDER TEMP on 12-75-2325MS Coag (PPP) [Time]Prothrombin time (PT) High9.0-12.9[facility] Medical CenterComment on above:A hematocrit value greater than 55% may lead to inaccurate results in coagulation testing. Patientshaving hematocrit values >55% require a special collection tube for coagulation studies. Please contact the laboratory at [phone] for redraw instructions.RBC Auto (Bld) [#/Vol]Ordered By: PROVIDER TEMP on 96-33-1186EMZ (Bld) [#/Vol]Erythrocytes [#/volume] in Blood by Automated count3.90-5.60 [facility] Memorial Hospitalerum or plasma anion gap determinationOrdered By: PROVIDER TEMP on 96-73-7602Qxuvl gap [Moles/Vol]Serum or plasma anion gap determination6.0-15.0[facility] Memorial Hospitalodium [Moles/volume] in Serum or PlasmaOrdered By: PROVIDER TEMP on 68-27-2618Nyathm [Moles/Vol]Sodium [Moles/volume] in Serum or UmgdmgOnz302-992TnnxlroevUniversity Hospitals Tripoint Medical Center Troponin I High Sensitivityon 64-43-4721Nnmuqlkj I High Boolbsnbogw25.4 pg/mL High0.0-20.0The [facility] Physician GroupComment on above:Result Comment: PERFORMED BY: [facility] [address] [place] [address] PATHOLOGIST TREATING PLANT SUPERVISOR ANDRE PERALTA M.D.Performed By: #### GLULS #### Point of Care testing ,Troponin I High Nohaqfppecp71.1 pg/mLHigh0.0-20.0The [facility] Group Comment on above:Result Comment: PERFORMED BY: [address] [address] PATHOLOGIST TREATING PLANT SUPERVISOR ANDRE PERALTA M.D.Performed By: #### PT, BMP, BNP, HS TROP, CK, CBC ####[facility] [place] [address] [facility] Troponin I.cardiac [Mass/volume] in Serum or Plasma by Detection limit <= 0.01 ng/Ordered By: Bertin Smith on 61-34-0807Gfveynih I.cardiac DL <= 0.01 ng/mL [Mass/Vol]Troponin I.cardiac [Mass/volume] in Serum or Plasma by Detection limit <= 0.01 ng/High0.0-20.0[facility] CenterUrea nitrogen [Mass/volume] in Serum or PlasmaOrdered By: PROVIDER TEMP on 30-42-5144Hfbh nitrogen [Mass/Vol]Urea nitrogen [Mass/volume] in Serum or Plasma7-[facility] CenterWBC Auto (Bld) [#/Vol]Ordered By: PROVIDER TEMP on 20-08-0959FHL (Bld) [#/Vol]Leukocytes [#/volume] in Blood by Automated count 4.1-10.5FCincinnati Shriners HospitalX-ray reportOrdered By: Sergei Valentin on 11-88-2307Huork reportVETERANS HEALTH ADMINISTRATION Main [address] [address] XRay Report Signed Patient: Manolo Roche MR#: [id number] : 1935 Acct:[id number] Age/Sex: 89 / M ADM Date: 5 [...] Sergei Valentin M.D.07/16/2024 1:03 PM Dictation Location: [facility] Transcribed By: [facility] 07/16/24 1303 Dictated By: Sergei Valentin II, MD 07/16/24 1302 Signed By: 07/16/24 1303 [facility] Work Phone: XR chest 2V*on 73-62-3125AD chest 2V*[facility] [place] [address] XRay Report Signed Patient: Manolo Roche MR#: [id number] : 1935 Acct:[id number] Age/Sex: 89 / M ADM Date: 07/16/24 [...] II, MD 07/16/24 1302 Signed By: 07/16/24 1303[facility] Physician GroupCNPNon 66-51-8230DMFTDlijimlrl (DEMBHT) MANOLO ROCHE ([id number]) 1935 M Date Time Provider Department 07/13/24 GAYE MATA During your visit today, we recorded the following information about you: Gaye Mata, KARIN 07/13/2024 4:14 PM Signed In error Allergies As of Date: 07/13/2024 (No Known Allergies) Date Reviewed: 07/06/2024 Reviewed by: Ayana Zavala APRN.LOAN REVIEW OFFICER - Fully Assessed Prescriptions as of 07/13/2024 [...] 5,) crtg Change every 72 hours. - azeqjj-qnirhgyp-davwoaz (CREON) 24,000-76,000 -120,000 unit cpDR Take 2 [...] *06/23/2018 Encounter Status:Closed by GAYE MATA on 07/13/24[facility] (ELIZABETHLeeann) MANOLO ROCHE ([id number]) 1935 M Date Time Provider Department 07/13/24 [...] training for 07/25/24 at 1-[address] [facility]. Location. Patient's Mychart status is PENDING, invite resent via text and to create account. Email sent to [email or web address] with clinic address, time, date, and what [...] Date Reviewed: 07/06/2024 Reviewed by: Ayana Zavala APRN.LOAN REVIEW OFFICER - Fully Assessed Reason for Visit: Omnipod [...] 5,) crtg Change every 72 hours. - rtfonp-xfjzckxu-rqdbcxk (CREON) 24,000-76,000 -120,000 unit cpDR Take 2 [...] *06/23/2018 Encounter Status:Closed by GAYE MATA on 07/13/24[facility] 16-45-3059EQVGKvpldv Visit (ENDOLN) FREDDYMANOLO OSBORN ([id number]) 1935 M Date Time Provider Department 07/06/24 [...] is DO Marie Rodriguez (Johny) [address] [facility] [address] [address] History of Present Illness Manolo Roche is a 89 year old male presents today for evaluation of DM Type 1. Here with and son. 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 Per patient, this was done due to [...] (PROBIOTIC-10 ORAL) Take by mouth once daily. fbmisa-zghcwxql-cdupjga (CREON) 24,000-76,000 -120,000 unit cpDR Take 2 capsules by mouth three times daily with meals. and 1 with snacks (8/day) Digestive Enzyme Mixtures lutein-zeaxanthin 25-5 mg cap Take by mouth once daily. Alternative Therapy - Antioxidant Omeprazole Magnesium 20 mg tablet Take 20 mg by mouth. Gastric Acid Secretion Film Processing Utility Worker - Proton Pump Inhibitors (PPIs) PARoxetine (PAXIL) 40 mg tablet Take 40 mg by mouth every morning. Antidepressant - Selective Serotonin Reuptake Inhibitors (SSRIs) tamsulosin (FLOMAX) 0.4 mg Take 0.4 mg by mouth. Prostatic Hypertrophy Agent - ikvgs-5-Axjsiushcnbl Antagonists Physical Activity: No formal program Diet: CHO Controlled Diet SMBG Frequency of Monitoring: Four times a Day Summary of Personal CGM Findings: Dates worn: 06/22/24-07/05/24 CGM Type: Dexcom 1- CGM recording is adequate for interpretation. Worn 93% of (more content not included)...NormalMercy Health Willard Hospitalon 34-54-4141PXMAVmuodwjby (KALEY) MANOLO ROCHE ([id number]) 1935 M Date Time Provider Department 07/06/24 AYANA ZAVALA During your visit today, we recorded the following information about you: Ayana Zavala APRN.LOAN REVIEW OFFICER 07/06/2024 4:09 PM Signed Please update patient [...] training. I reached out to our lead generator and am waiting to hear back, but hopefully can get him set up for training in the next two weeks. Sheryl Ny MA 07/07/2024 4:31 PM Signed Called patient. No answer. [facility] to call [phone] to retrieve below message from Ayana Mckinney APRN.KALANI 07/13/2024 8:33 AM Signed Please call back patient to see how he is doing since we made adjustments to his regimen. I did reach out to the [facility] rehab trainer at [facility] and she said she would be reaching out. I want to make sure this gets scheduled and that she was able to reach him. Buffy Arana MA 07/13/2024 4:06 PM Signed Called and spoke with patient He is doing well He stated that he just got scheduled with the rehab trainer today will call the office if [...] 5,) crtg Change every 72 hours. - xqkqjw-nwhulivk-wzfckby (CREON) 24,000-76,000 -120,000 unit cpDR Take 2 [...] *06/23/2018 Encounter Status:Closed by AYANA ZAVALA on 07/06/24NoJoint [facility] Hospital ON DEMANDon 18-54-5063Jbyqbkj by an unspecified provider. [facility] HospitalGLUCOSE, BLOOD (POC)on 95-23-2730Jupijmo [Mass/Vol]76 mg/dL74 - 99 mg/dLOhiohealth Grove City Methodist HospitalComment on above:Location:[facility], [address] [place] [address], [address] The Accu-Chek Inform II glucose meter has [...] gas instrument) in the above situations. [facility] HospitalHEMOGLOBIN A1C (POC)on 77-53-2913NvN2h (Bld) [Mass fraction]10.1 %Abnormal4.3 - 5.6 %[facility] Methodist HospitalComment on above:Location:[facility], [address] [place] [address], [place], [place], [facility] Point of care (POC) Hemoglobin A1c (HGBA1C) [...] specific diabetes management situations: The POC device senior talent management consultant provides a normal range of 4.2% to 6.5% for the HGBA1C POC test. However, the [place] [employer] guidelines indicate that patients with [...] cell lifespan. Interpretation and review of laboratory resultsAbnormalCProMedica Fostoria Community HospitalGlucose Glucometer (BldC) [Mass/Vol]Ordered By: Sushant Cordon on 56-37-9478Qzjcotp [Mass/Vol]Capillary blood glucose measurement by glucometer (mass/volume)[facility] Citizens HospitalComment on above: Random Glucose Reference Range is dependent on time and content of last meal. Glucose of more than 200 mg/dL in a nonstressed, ambulatory subject supports the diagnosis of Diabetes Mellitus.Glucose Poct Glucometerson 50-11-9278Ccqpwdt3 [address]Bayfront Health [address] Petersburg Emergency Room Physician GroupComment on above:Result Comment: Glu2: Will Repeat TestPerformed By: #### GLULS #### Point of Care testing ,Karon NOTIFY VadimHCA Florida JFK North Hospital Physician GroupComment on above: Performed By: #### GLULS #### Point of Care testing ,Uqmjajl4Xlzbgyi MeterGadsden Community Hospital Physician GroupComment on above:Result Comment: PERFORMED BY: [address] [place] [address] PATHOLOGIST TREATING PLANT SUPERVISOR ANDRE PERALTA M.D.Performed By: #### GLULS #### Point of Care testing ,Glucose [Mass/Vol]572 mg/dLOff scale [facility] Physician GroupComment on above:Result Comment: Random Glucose Reference Range is dependent on time and content of last meal. Glucose of more than 200 mg/dL in a nonstressed, ambulatory subject supports the diagnosis of Diabetes Mellitus.Performed By: #### GLULS #### Point of Care testing ,Qmiexaz7EvfhkaSsg [facility] Physician GroupComment on above:Result Comment: Glu2: Will Repeat TestPerformed By: #### GLULS #### Point of Care testing ,Jjbiyto0DABW NOTIFY /DeepikaHCA Florida JFK North Hospital Physician GroupComment on above: Performed By: #### GLULS #### Point of Care testing ,Qiexcia1Ndbwmaw [facility] Physician GroupComment on above:Result Comment: PERFORMED BY: [address] [place] [address] PATHOLOGIST TREATING PLANT SUPERVISOR ANDRE PERALTA M.D.Performed By: #### GLULS #### Point of Care testing ,Glucose [Mass/Vol]552 mg/dLOff scale [facility] Physician GroupComment on above:Result Comment: Random Glucose Reference Range is dependent on time and content of last meal. Glucose of more than 200 mg/dL in a nonstressed, ambulatory subject supports the diagnosis of Diabetes Mellitus.Performed By: #### GLULS #### Point of Care testing ,Glucose [Mass/Vol]375 mg/dLGadsden Community Hospital Physician GroupComment on above: Result Comment: Random Glucose Reference Range is dependent on time and content of last meal. Glucose of more than 200 mg/dL in a nonstressed, ambulatory subject supports the diagnosis of Diabetes Mellitus. PERFORMED BY: [address] [place] [address] PATHOLOGIST TREATING PLANT SUPERVISOR ANDRE PERALTA M.D.Performed By: #### GLULS #### Point of Care testing ,Qhgirqf7YlytteFml [facility] Physician GroupComment on above:Result Comment: Glu2: Will Repeat Test PERFORMED BY: [address] [place] [address] PATHOLOGIST TREATING PLANT SUPERVISOR ANDRE PERALTA M.D.Performed By: #### GLULS #### Point of Care testing ,Glucose [Mass/Vol]437 mg/dLOff scale [facility] Physician GroupComment on above:Result Comment: Random Glucose Reference Range is dependent on time and content of last meal. Glucose of more than 200 mg/dL in a nonstressed, ambulatory subject supports the diagnosis of Diabetes Mellitus.Performed By: #### GLULS #### Point of Care testing ,Glucose [Mass/Vol]210 mg/dLGadsden Community Hospital Physician GroupComment on above: Result Comment: Random Glucose Reference Range is dependent on time and content of last meal. Glucose of more than 200 mg/dL in a nonstressed, ambulatory subject supports the diagnosis of Diabetes Mellitus. PERFORMED BY: [address] [place] [id number] PATHOLOGIST TREATING PLANT SUPERVISOR ANDRE PERALTA M.D.Performed By: #### GLULS #### Point of Care testing ,Glucose [Mass/Vol]332 mg/dLGadsden Community Hospital Physician GroupComment on above: Result Comment: Random Glucose Reference Range is dependent on time and content of last meal. Glucose of more than 200 mg/dL in a nonstressed, ambulatory subject supports the diagnosis of Diabetes Mellitus. PERFORMED BY: [place] [address] PATHOLOGIST TREATING PLANT SUPERVISOR ANDRE PERALTA M.D.Performed By: #### GLULS #### Point of Care testing ,No Panel InformationOrdered By: Sushant Cordon on 30-66-3878Btjpyal Glucose #2 CommentWill notify /BarryCincinnati Shriners HospitalBedside Glucose #3 CommentCleaned meterUniversity Hospitals Tripoint Medical CenterBedside Glucose CommentSee commentUniversity Hospitals Tripoint Medical CenterComment on above:Glu2: Will Repeat TestAerobic Cultureon 52-96-5483Uvilrys CultureComment deep wound culture of abdominal wound [...] RESISTANT TO ALL B-LACTAM DRUGS. PERFORMED BY: [address] [place] [address] PATHOLOGIST TREATING PLANT SUPERVISOR ANDRE KeithThe [facility] Physician GroupComment on above: Performed By: #### GLULS #### Point of Care testing ,Anaerobic cultureOrdered By: Stephanie Sheridan on 57-04-7072Vyvwtqik identified Anaer cx Nom (Unsp spec)Anaerobic cultureUniversity Hospitals Tripoint Medical Center Bacteria identified Aer cx Nom (Unsp spec)Ordered By: Stephanie Sheridan on 37-50-1593Ivenkkv CultureAbnoalUniversity Hospitals Tripoint Medical CenterGroup B Strep (Streptococcus agalactiae)Group B Strep (Streptococcus agalactiae)Abnormal [facility] Medical CenterGlucose Poct Glucometerson 26-45-8386Nmouyxv [Mass/Vol]134 mg/dLNoCape Fear/Harnett Health Physician GroupComment on above:Result Comment: Random Glucose Reference Range is dependent on time and content of last meal. Glucose of more than 200 mg/dL in a nonstressed, ambulatory subject supports the diagnosis of Diabetes Mellitus. PERFORMED BY: [place] [address] PATHOLOGIST TREATING PLANT SUPERVISOR ANDRE PERALTA M.D.Performed By: #### GLULS #### Point of Care testing ,Glucose [Mass/Vol]65 mg/dLNoCape Fear/Harnett Health Physician GroupComment on above: Result Comment: Random Glucose Reference Range is dependent on time and content of last meal. Glucose of more than 200 mg/dL in a nonstressed, ambulatory subject supports the diagnosis of Diabetes Mellitus. PERFORMED BY: [place] [address] PATHOLOGIST TREATING PLANT SUPERVISOR ANDRE PERALTA M.D.Performed By: #### GLULS #### Point of Care testing ,Mbdrrqk6Xmf8: Cleaned MeterNoCape Fear/Harnett Health Physician GroupComment on above: Result Comment: PERFORMED BY: [place] [address] PATHOLOGIST TREATING PLANT SUPERVISOR ANDRE PERALTA M.D.Performed By: #### GLULS ####Point of Care testing, Glucose [Mass/Vol]140 mg/dLNoCape Fear/Harnett Health Physician GroupComment on above: Result Comment: Random Glucose Reference Range is dependent on time and content of last meal. Glucose of more than 200 mg/dL in a nonstressed, ambulatory subject supports the diagnosis of Diabetes Mellitus.Performed By: #### GLULS ####Point of Care testing,Commemt1 Glu2: Cleaned MeterNoCape Fear/Harnett Health Physician GroupComment on above:Result Comment: PERFORMED BY: [address] [place] [address] PATHOLOGIST TREATING PLANT SUPERVISOR ANDRE PERALTA M.D.Performed By: #### GLULS ####Point of Care testing, Glucose [Mass/Vol]200 mg/dLNoCape Fear/Harnett Health Physician GroupComment on above: Result Comment: Random Glucose Reference Range is dependent on time and content of last meal. Glucose of more than 200 mg/dL in a nonstressed, ambulatory subject supports the diagnosis of Diabetes Mellitus.Performed By: #### GLULS ####Point of Care testing,Commemt1 NormalBayfront Health St. Petersburg Emergency Room Physician GroupComment on above:Result Comment: Glu2: Will Repeat Test PERFORMED BY: [address] [place] [address] PATHOLOGIST TREATING PLANT SUPERVISOR ANDRE PERALTA M.D.Performed By: #### GLULS #### Point of Care testing ,Glucose [Mass/Vol]425 mg/dLOff scale highBayfront Health St. Petersburg Emergency Room Physician GroupComment on above:Result Comment: Random Glucose Reference Range is dependent on time and content of last meal. Glucose of more than 200 mg/dL in a nonstressed, ambulatory subject supports the diagnosis of Diabetes Mellitus.Performed By: #### GLULS #### Point of Care testing ,Gram stain microscopyOrdered By: Stephanie Sheridan on 86-59-1712Gxbgtqszztb observation Gram stain Nom (Unsp spec)Gram stain microscopyUniversity Hospitals Tripoint Medical CenterA1C with Estimated Average Gluon 56-58-8776Lfoodqf [Mass/Vol]255 mg/dLGadsden Community Hospital Physician GroupComment on above:Order Comment: ADD ON PER IFEANYI - PHLEBResult Comment: PERFORMED BY: [address] [place] [address] PATHOLOGIST TREATING PLANT SUPERVISOR ANDRE PERALTA M.D.Performed By: #### GLULS #### Point of Care testing ,HbA1c (Bld) [Mass fraction]10.5 %High4.3-5.6The [facility] Physician Group Comment on above:Order Comment: ADD ON PER IFEANYI - PHLEBResult Comment: Increased risk for diabetes: 5.7 - 6.4 diabetes: >6.4 glycemic control for adults with diabetes: <7.0Performed By: #### GLULS #### Point of Care testing ,Acanthocytes [Presence] in Blood by Light microscopyOrdered By: Sushant Cordon on 26-67-5661Dnlcpysgzoad LM Ql (Bld)Acanthocytes [Presence] in Blood by Light microscopyUniversity Hospitals Tripoint Medical CenterAnisocytosis LM Ql (Bld) Ordered By: Sushant Cordon on 49-08-8181Gqayeofnzbqp Ql (Bld)Anisocytosis [Presence] in Blood by Light microscopyUniversity Hospitals Tripoint Medical CenterBasic Metabolic Panelon 70-34-0026Qvlhw gap [Moles/Vol]10.4 mmol/LNormal6.0-15.0The [facility] Physician GroupComment on above:Performed By: #### GLULS #### Point of Care testing ,Calcium [Mass/Vol]9.0 mg/dLNormal8.6-10.3The [facility] Physician GroupComment on above:Result Comment: PERFORMED BY: [facility] [place] [address] PATHOLOGIST TREATING PLANT SUPERVISOR ANDRE PERALTA M.D.Performed By: #### GLULS #### Point of Care testing ,Chloride [Moles/Vol]103 mmol/UYlgdrk33-148Lyc [facility] Physician GroupComment on above:Performed By: #### GLULS #### Point of Care testing ,CO2 [Moles/Vol]28.0 mmol/LTdxsfq39.0-31.0The [facility] Physician GroupComment on above:Performed By: #### GLULS #### Point of Care testing ,Creatinine [Mass/Vol]0.96 mg/dLNormal0.70-1.30The [facility] Physician Group Comment on above:Performed By: #### GLULS #### Point of Care testing ,GFR/1.73 sq M.predicted MDRD (S/P/Bld) [Vol rate/Area]mL/min/{1.73_m2}NormalThe [facility] Physician GroupComment on above:Performed By: #### GLULS #### Point of Care testing ,Glucose [Mass/Vol]90 mg/oUBfmdrx04-708Xhh [facility] Physician [facility] CenterComment on above:Result Comment: Random Glucose Reference Range is dependent on time and content of last meal. Glucose of more than 200 mg/dL in a nonstressed, ambulatory subject supports the diagnosis of Diabetes Mellitus. ADA recommended reference rangePerformed By: #### GLULS #### Point of Care testing ,Potassium [Moles/Vol]4.4 mmol/LNormal3.5-5.1The [facility] Physician [facility] Comment on above:Performed By: #### GLULS #### Point of Care testing ,Sodium [Moles/Vol]137 mmol/YZctdgq294-234Zcr [facility] Physician [facility] CenterComment on above:Performed By: #### GLULS #### Point of Care testing ,Urea nitrogen [Mass/Vol]22 mg/dLNormal7-25The [facility] Physician GroupComment on above:Performed By: #### GLULS #### Point of Care testing ,Basophils Auto (Bld) [#/Vol]Ordered By: Sushant Cordon on 06-19-2024 Basophils (Bld) [#/Vol]Automated basophil count0.0-0.2FCincinnati Shriners HospitalBasophils/100 WBC Auto (Bld)Ordered By: Sushant Cordon on 40-83-4899Buefbgppu/100 WBC (Bld)Automated basophil %.[facility] Tri[facility] Medical CenterBlood estimated average glucose determination by estimation from glycated hemoglobinOrdered By: Sushant Cordon on 16-57-7890Absaslk glucose Estimated from glycated hemoglobin (Bld) [Mass/Vol]Glucose mean value [Mass/volume] in Blood Estimated from glycated hemoglobinUniversity Hospitals Tripoint Medical CenterBurr cells [Presence] in Blood by Light microscopyOrdered By: Sushant Cordon on 92-83-8742Hsac cells LM Ql (Bld)[place] cells [Presence] in Blood by Light microscopyUniversity Hospitals Tripoint Medical CenterCalcium [Mass/volume] in Serum or PlasmaOrdered By: Sushant Cordon on 86-01-4340Ukzgnfp [Mass/Vol]Calcium [Mass/volume] in Serum or Plasma8.6-10.3FCincinnati Shriners HospitalCarbon dioxide, total [Moles/volume] in Serum or PlasmaOrdered By: Sushant Cordon on 42-80-6318WE7 [Moles/Vol]Carbon dioxide, total [Moles/volume] in Serum or Vjvpij75.0-31.0[facility] Chloride [Moles/volume] in Serum or PlasmaOrdered By: Sushant Cordon on 18-22-3574Uvbavdvw [Moles/Vol]Chloride [Moles/volume] in Serum or Hjrjbv89-429 [facility] CenterCreatinine [Mass/volume] in Serum or Plasma Ordered By: Sushant Cordon on 03-11-5167Vxwavmsdxl [Mass/Vol]Creatinine [Mass/volume] in Serum or Plasma0.70-1.30[facility] Eosinophils Auto (Bld) [#/Vol]Ordered By: Sushant Cordon on 06-19-2024 Eosinophils (Bld) [#/Vol]Automated eosinophil count0.0-0.45[facility] CenterEosinophils/100 WBC Auto (Bld)Ordered By: Sushant Cordon on 72-65-0775Posabyyevlk/100 WBC (Bld)Automated eosinophil %.[facility] CenterErythrocyte distribution width Auto (RBC) [Ratio]Ordered By: Sushant Cordon on 83-60-3690Yvhecwzohcq distribution width (RBC) [Ratio] Erythrocyte distribution width [Ratio] by Automated yjpvkHcvz17.0-14.8[facility] CenterErythrocyte morphology finding [Identifier] in Blood Ordered By: Sushant Cordon on 44-37-8649YQR morphology finding Nom (Bld) RBC morphologyUniversity Hospitals Tripoint Medical CenterGlucose Poct Glucometerson 72-71-0053Rfetpkp [Mass/Vol]101 mg/dLNoCape Fear/Harnett Health Physician GroupComment on above:Result Comment: Random Glucose Reference Range is dependent on time and content of last meal. Glucose of more than 200 mg/dL in a nonstressed, ambulatory subject supports the diagnosis of Diabetes Mellitus. PERFORMED BY: [facility] [place] [address] PATHOLOGIST [employer] ANDRE PERALTA M.D.Performed By: #### GLULS #### Point of Care testing ,Glucose [Mass/volume] in Serum or PlasmaOrdered By: Sushant Cordon on 11-66-9168Xzeswyl [Mass/Vol]Glucose [Mass/volume] in Serum or Nyrxje31-399 [facility] CenterComment on above:ADA recommended reference rangeRandom Glucose Reference Range is dependent on time and content of last meal. Glucose of more than 200 mg/dL in a nonstressed, ambulatory subject supports the diagnosisof Diabetes Mellitus.Hematocrit Auto (Bld) [Volume fraction]Ordered By: Sushant Cordon on 70-84-7287Jmnlzdhftu (Bld) [Volume fraction]Hematocrit [Volume Fraction] of Blood by Automated qyefaGzi99.8-50.0 [facility] CenterHemoglobin A1c/Hemoglobin.total in BloodOrdered By: Sushant Cordon on 04-34-9005IjR9m (Bld) [Mass fraction]Hemoglobin A1c percentageHigh4.3-5.6FCincinnati Shriners HospitalComment on above:Increased risk for diabetes: 5.7 - 6.4diabetes: >6.4glycemic control for adults with diabetes: <7.0Hemoglobin [Mass/volume] in BloodOrdered By: Sushant Cordon on 34-38-4814Lkxzrmxodo (Bld) [Mass/Vol]Hemoglobin [Mass/volume] in QbgzqGud44.0-17.0[facility] CenterHypochromia LM Ql (Bld)Ordered By: Sushant Cordon on 52-77-1811Xghaerqugzt Ql (Bld)Hypochromia [Presence] in Blood by Light microscopyUniversity Hospitals Tripoint Medical CenterINR in Platelet poor plasma by Coagulation assayOrdered By: Sushant Cordon on 11-83-7937JOP Coag (PPP) [Relative time]INR in Platelet poor plasma by Coagulation assayUniversity Hospitals Tripoint Medical CenterComment on above:INR Therapeutic Range A) [...] by Automated counOrdered By: Sushant Cordon on 69-45-5171VCW corrected for nucl RBC Auto (Bld) [#/Vol]Leukocytes [#/volume] corrected for nucleated erythrocytes in Blood by Automated coun4.1-10.5FCincinnati Shriners HospitalLymphocytes Auto (Bld) [#/Vol]Ordered By: Sushant Cordon on 75-72-7566Vgttsnnmpsn (Bld) [#/Vol]Lymphocytes [#/volume] in Blood by Automated count1.00-4.8[facility] CenterLymphocytes/100 WBC Auto (Bld)Ordered By: Sushant Cordon on 91-85-9751Ghvqhusylwv/100 WBC (Bld)Lymphocytes/100 leukocytes in Blood by Automated count.[facility] HospitalH Auto (RBC) [Entitic mass]Ordered By: Sushant Cordon on 23-34-9719FGL (RBC) [Entitic mass]MCH [Entitic mass] by Automated rrwzbJqa50.5-35.2FCincinnati Shriners HospitalMCHC Auto (RBC) [Mass/Vol]Ordered By: Sushant Cordon on 06-19-2024 MCHC (RBC) [Mass/Vol]MCHC [Mass/volume] by Automated count32.5-35.6FSelect Medical Specialty Hospital - CantonV Auto (RBC) [Entitic vol]Ordered By: Sushant Cordon on 48-29-8565UIM (RBC) [Entitic vol]MCV [Entitic volume] by Automated gksypErl24.5-101[facility] CenterMacrocytes LM Ql (Bld)Ordered By: Sushant Cordon on 18-98-6893Nwpdhsxdzj Ql (Bld)Macrocytes [Presence] in Blood by Light microscopyUniversity Hospitals Tripoint Medical CenterMicrocytes LM Ql (Bld)Ordered By: Sushant Cordon on 73-73-1028Ouhdasfhvs Ql (Bld)Microcytes [Presence] in Blood by Light microscopyUniversity Hospitals Tripoint Medical Center Monocytes Auto (Bld) [#/Vol]Ordered By: Sushant Cordon on 06-19-2024 Monocytes (Bld) [#/Vol]Automated blood monocyte count0.0-0.8[facility] CenterMonocytes/100 WBC Auto (Bld)Ordered By: Sushant Cordon on 42-28-2015Ipkmdhqbw/100 WBC (Bld)Automated monocyte %.[facility] CenterNeutrophils Auto (Bld) [#/Vol]Ordered By: Sushant Cordon on 18-22-5731Tflgfmvucqa (Bld) [#/Vol]Neutrophils [#/volume] in Blood by Automated count1.8-7.7FCincinnati Shriners HospitalNeutrophils/100 WBC Auto (Bld) Ordered By: Sushant Cordon on 95-94-5414Fwxgztucrll/100 WBC (Bld)Automated neutrophil %.[facility] CenterNo Panel InformationOrdered By: Sushant Cordon on 90-80-2812Kiptyngxh GFR (CKD-EPI)> 60.0 mL/MinUniversity Hospitals Tripoint Medical CenterPharmacy Creatinine Clearance (ChemN/AFCincinnati Shriners HospitalNucleated erythrocytes [Presence] in Blood by Automated count Ordered By: Sushant Cordon on 46-80-6324Lhzsmqlxn RBC Auto Ql (Bld) Nucleated erythrocytes [Presence] in Blood by Automated count0-0.5FCincinnati Shriners HospitalOvalocytes [Presence] in Blood by Light microscopyOrdered By: Sushant Cordon on 66-61-0065Seevtwtiba LM Ql (Bld)Ovalocyte detection [facility] CenterPartial Thromboplastin Timeon 50-80-2495yTOX Coag (Bld) [Time]29.4 tSfdxlj19.1-36.5The [facility] Physician GroupComment on above:Result Comment: A hematocrit value greater than 55% may lead to inaccurate results in coagulation testing. Patients having hematocrit values >55% require a special collection tube for coagulation studies. Please contact the laboratory at [phone] for redraw instructions. PERFORMED BY: [facility] [address] [place] [address] PATHOLOGIST [employer] ANDRE PERALTA M.D.Performed By: #### GLULS #### Point of Care testing ,Platelet adequacy [Presence] in Blood by Light microscopyOrdered By: Sushant Cordon on 90-33-8818Ndfznfsfs LM Ql (Bld)Platelet adequacy [Presence] in Blood by Light microscopyGalion Community HospitalPlatelet mean volume Auto (Bld) [Entitic vol]Ordered By: Sushant Cordon on 06-19-2024 Platelet mean volume (Bld) [Entitic vol]Platelet mean volume [Entitic volume] in Blood by Automated count6.6-10.1FCincinnati Shriners HospitalPlatelet morphology finding [Identifier] in BloodOrdered By: Sushant Cordon on 91-95-1394Zmtjlarh morphology finding Nom (Bld)Platelet morphology finding [Identifier] in BloodNoJoint Township District Memorial HospitalPlatelets Auto (Bld) [#/Vol]Ordered By: Sushant Cordon on 21-79-4504Wbwuckumd (Bld) [#/Vol] Platelets [#/volume] in Blood by Automated niaoj106-796EbqcyxinkUniversity Hospitals Tripoint Medical CenterPoikilocytosis [Presence] in Blood by Light microscopyOrdered By: Sushant Cordon on 12-77-8209Nskenhgewnengw LM Ql (Bld)Poikilocytosis [Presence] in Blood by Light microscopyUniversity Hospitals Tripoint Medical Center Potassium [Moles/volume] in Serum or PlasmaOrdered By: Sushant Cordon on 30-58-8656Radxoxbjd [Moles/Vol]Potassium [Moles/volume] in Serum or Plasma 3.5-5.1FCincinnati Shriners HospitalProthrombin Time INRon 78-20-2207MDP Coag (PPP) [Relative time]1.1 {INR}NormalThe [facility] Physician GroupComment on above:Result Comment: INR Therapeutic [...] Care testing ,PT Coag (PPP) [Time]12.9 sNormal9.0-12.9The [facility] Physician GroupComment on above:Result Comment: A hematocrit value greater than 55% may lead to inaccurate results in coagulation testing. Patients having hematocrit values >55% require a special collection tube for coagulation studies. Please contact the laboratory at [phone] for redraw instructions.Performed By: #### GLULS #### Point of Care testing ,Prothrombin time (PT)Ordered By: Sushant Cordon on 37-02-0849RP Coag (PPP) [Time]Prothrombin time (PT)9.0-12.9[facility] Comment on above:A hematocrit value greater than 55% may lead to inaccurate results in coagulation testing. Patientshaving hematocrit values >55% require a special collection tube for coagulation studies. Please contact the laboratory at [phone] for redraw instructions.RBC Auto (Bld) [#/Vol]Ordered By: Sushant Cordon on 85-37-5115ZHE (Bld) [#/Vol]Erythrocytes [#/volume] in Blood by Automated count3.90-5.60[facility] Memorial Hospitalcan and CBCon 67-60-9710IkpdsiqghtdiMrhdpktgVrbwikMcj [facility] Physician GroupComment on above:Performed By: #### GLULS #### Point of Care testing ,Anisocytosis Ql (Bld)ModerateNoWilson Memorial HospitalComment on above:Performed By: #### GLULS #### Point of Care testing ,Basophils (Bld) [#/Vol]0.1 10*3/uLNormal0.0-0.2The [facility]ician Group Comment on above:Result Comment: PERFORMED BY: [facility] [place] [address] PATHOLOGIST [employer] ANDRE PERALTA M.D.Performed By: #### GLULS #### Point of Care testing ,Basophils/100 WBC (Bld)1.8 %Normal.The [facility] Physician GroupComment on above:Performed By: #### GLULS #### Point of Care testing ,Crenated RBCSlightNoCape Fear/Harnett Health Physician GroupComment on above:Performed By: #### GLULS #### Point of Care testing ,Eosinophils (Bld) [#/Vol]0.1 10*3/uLNormal0.0-0.45The [facility] Physician [facility] Comment on above:Performed By: #### GLULS #### Point of Care testing ,Eosinophils/100 WBC (Bld)1.3 %Normal.The [facility] Physician GroupComment on above:Performed By: #### GLULS #### Point of Care testing ,Erythrocyte distribution width (RBC) [Ratio]20.5 %High12.0-14.8The [facility] Physician GroupComment on above:Performed By: #### GLULS #### Point of Care testing ,Hematocrit (Bld) [Volume fraction]34.1 %Low38.8-50.0The [facility] Physician GroupComment on above:Performed By: #### GLULS #### Point of Care testing ,Hemoglobin (Bld) [Mass/Vol]11.3 g/dLLow13.0-17.0The [facility] Comment on above:Performed By: #### GLULS #### Point of Care testing ,HypochromasiaModerateGadsden Community Hospital Physician GroupComment on above: Performed By: #### GLULS #### Point of Care testing ,Lymphocytes (Bld) [#/Vol]3.5 10*3/uLNormal1.00-4.8The [facility] Comment on above:Performed By: #### GLULS #### Point of Care testing ,Lymphocytes/100 WBC (Bld)44.3 %Normal.The [facility] Physician GroupComment on above:Performed By: #### GLULS #### Point of Care testing ,MacrocytosisSAnson Community Hospital Physician GroupComment on above:Performed By: #### GLULS #### Point of Care testing ,MCH (RBC) [Entitic mass]25.5 pgLow27.5-35.2The [facility] Physician GroupComment on above:Performed By: #### GLULS #### Point of Care testing ,MCV (RBC) [Entitic vol]76.9 fLLow83.5-101The [facility] Physician GroupComment on above:Performed By: #### GLULS #### Point of Care testing ,Mean Corpuscular HGB Conc33.2 g/yFRnsxug83.5-35.6The [facility] Physician [facility] Comment on above:Performed By: #### GLULS #### Point of Care testing ,MicrocytosisSAnson Community Hospital Physician GroupComment on above:Performed By: #### GLULS #### Point of Care testing ,Monocytes (Bld) [#/Vol]0.6 10*3/uLNormal0.0-0.8The [facility] Physician [facility] Comment on above:Performed By: #### GLULS #### Point of Care testing ,Monocytes/100 WBC (Bld)7.0 %Normal.The [facility] Physician GroupComment on above:Performed By: #### GLULS #### Point of Care testing ,Neutrophils (Bld) [#/Vol]3.6 10*3/uLNormal1.8-7.7The [facility] Physician [facility] Comment on above:Performed By: #### GLULS #### Point of Care testing ,Neutrophils/100 WBC (Bld)45.6 %Normal.The [facility] Physician GroupComment on above:Performed By: #### GLULS #### Point of Care testing ,NRBC%0.1 /100{WBC}Normal0-0.5The [facility] Physician GroupComment on above: Performed By: #### GLULS #### Point of Care testing ,OvalocytesSlightNoCape Fear/Harnett Health Physician GroupComment on above:Performed By: #### GLULS #### Point of Care testing ,Platelet EstimateNormalNormalNormHCA Florida JFK [facility] Hospital Physician GroupComment on above:Performed By: #### GLULS #### Point of Care testing ,Platelet mean volume (Bld) [Entitic vol]9.8 fLNormal6.6-10.1The [facility] Physician GroupComment on above:Performed By: #### GLULS #### Point of Care testing ,Platelet MorphologyNormalNormalNoCape Fear/Harnett Health Physician GroupComment on above:Result Comment: PERFORMED BY: [facility] [place] [address] PATHOLOGIST [employer] ANDRE PERALTA M.D.Performed By: #### GLULS #### Point of Care testing ,Platelets (Bld) [#/Vol]243 10*3/hCBtbqjx679-448Gzg [facility] Comment on above:Performed By: #### GLULS #### Point of Care testing ,PoikilocytosisModerateNoCape Fear/Harnett Health Physician GroupComment on above: Performed By: #### GLULS #### Point of Care testing ,RBC (Bld) [#/Vol]4.43 10*6/uLNormal3.90-5.60The [facility] Physician [facility] Comment on above:Performed By: #### GLULS #### Point of Care testing ,SchistocytesSlightGadsden Community Hospital Physician GroupComment on above:Performed By: #### GLULS #### Point of Care testing ,Target CellsSlightGadsden Community Hospital Physician GroupComment on above:Performed By: #### GLULS #### Point of Care testing ,WBC (Bld) [#/Vol]7.9 10*3/uLNormal4.1-10.5The [facility] Physician GroupComment on above:Performed By: #### GLULS #### Point of Care testing ,Schistocytes [Presence] in Blood by Light microscopyOrdered By: Sushant Cordon on 92-34-0758Gjvclljorkfr LM Ql (Bld)Schistocytes [Presence] in Blood by Light microscopyGrand Lake Joint Township District Memorial Hospitalerum or plasma anion gap determinationOrdered By: Sushant Cordon on 64-06-4069Gchld gap [Moles/Vol] Serum or plasma anion gap determination6.0-15.0[facility] Sodium [Moles/volume] in Serum or PlasmaOrdered By: Sushant Cordon on 19-41-4255Nlnmvr [Moles/Vol]Sodium [Moles/volume] in Serum or Vmnewb698-806 [facility] CenterTarget cells [Presence] in Blood by Light microscopyOrdered By: Sushant Cordon on 04-41-1664Ewevub cells LM Ql (Bld) Target cellsUniversity Hospitals Tripoint Medical CenterUrea nitrogen [Mass/volume] in Serum or PlasmaOrdered By: Sushant Cordon on 92-80-2827Fsaq nitrogen [Mass/Vol]Urea nitrogen [Mass/volume] in Serum or Plasma7-25[facility] CenterWBC Auto (Bld) [#/Vol]Ordered By: Sushant Cordon on 39-21-5218NQC (Bld) [#/Vol]Leukocytes [#/volume] in Blood by Automated count 4.1-10.5FCincinnati Shriners HospitalaPTT in Platelet poor plasma by Coagulation assayOrdered By: Sushant Cordon on 09-43-7205wPOR Coag (PPP) [Time]Activated partial thromboplastin time (aPTT) in platelet poor plasma by coagulation a25.1-36.5FCincinnati Shriners HospitalComment on above:A hematocrit value greater than 55% may lead to inaccurate results in coagulation testing. Patientshaving hematocrit values >55% require a special collection tube for coagulation studies. Please contact the laboratory at [phone] for redraw instructions.Acanthocytes [Presence] in Blood by Light microscopyOrdered By: Jose Alfredo Brantley on 70-14-7563Lqvensytyrtx LM Ql (Bld)Acanthocytes [Presence] in Blood by Light microscopyUniversity Hospitals Tripoint Medical CenterAlanine aminotransferase [Enzymatic activity/volume] in Serum or PlasmaOrdered By: Jose Alfredo Brantley on 29-74-4163GBS [Catalytic activity/Vol]Alanine aminotransferase [Enzymatic activity/volume] in Serum or Plasma7-52[facility] CenterAlbumin [Mass/volume] in Serum or Plasma by Bromocresol green (BCG) dye binding methoOrdered By: Jose Alfredo Brantley on 22-14-6892Igcwbpw BCG dye [Mass/Vol] Albumin [Mass/volume] in Serum or Plasma by Bromocresol green (BCG) dye binding methoLow3.5-5.7FCincinnati Shriners HospitalAlkaline phosphatase [Enzymatic activity/volume] in Serum or PlasmaOrdered By: Jose Alfredo Brantley on 22-97-1533HDY [Catalytic activity/Vol]Alkaline phosphatase [Enzymatic activity/volume] in Serum or KiydllNylf61-923DlcblujxbUniversity Hospitals Tripoint Medical CenterAnisocytosis LM Ql (Bld)Ordered By: Jose Alfredo Brantley on 67-30-7512Taszwxdnbtpe Ql (Bld)Anisocytosis [Presence] in Blood by Light microscopyUniversity Hospitals Tripoint Medical Center Aspartate aminotransferase [Enzymatic activity/volume] in Serum or PlasmaOrdered By: Jose Alfredo Brantley on 07-37-1307HUE [Catalytic activity/Vol]Aspartate aminotransferase [Enzymatic activity/volume] in Serum or Zgkbnm46-57AfdexorqhUniversity Hospitals Tripoint Medical CenterBasophils Auto (Bld) [#/Vol]Ordered By: Jose Alfredo Brantley on 89-46-2329Jlxthunlv (Bld) [#/Vol]Automated basophil countUniversity Hospitals Tripoint Medical CenterBasophils/100 WBC Auto (Bld)Ordered By: Jose Alfredo Brantley on 06-18-2024 Basophils/100 WBC (Bld)Automated basophil %[facility] Bilirubin.total [Mass/volume] in Serum or PlasmaOrdered By: Jose Alfredo Brantley on 91-33-3910Syrwjpucz [Mass/Vol]Bilirubin.total [Mass/volume] in Serum or Plasma 0.3-1.0[facility] CenterBurr cells [Presence] in Blood by Light microscopyOrdered By: Jose Alfredo Brantley on 02-78-7877Mbtp cells LM Ql (Bld)[place] cells [Presence] in Blood by Light microscopyUniversity Hospitals Tripoint Medical CenterCalcium [Mass/volume] in Serum or PlasmaOrdered By: Jose Alfredo Brantley on 88-63-3234Pjuqery [Mass/Vol]Calcium [Mass/volume] in Serum or Plasma8.6-10.3FCincinnati Shriners HospitalCarbon dioxide, total [Moles/volume] in Serum or PlasmaOrdered By: Jose Alfredo Brantley on 30-71-5566QC4 [Moles/Vol]Carbon dioxide, total [Moles/volume] in Serum or Fqmblv39.0-31.0[facility] CenterChloride [Moles/volume] in Serum or PlasmaOrdered By: Jose Alfredo Brantley on 18-38-0305Gmlopfqq [Moles/Vol]Chloride [Moles/volume] in Serum or Auiavb50-024AuygsbthmUniversity Hospitals Tripoint Medical CenterComprehensive Metabolic Panelon 77-46-6143Vfrkkuu [Mass/Vol]3.4 g/dLLow3.5-5.7The [facility] Physician GroupComment on above:Performed By: #### DIFF CBC, CMP ####[place] [address] USAAlbumin/Globulin [Mass ratio]1.1 {ratio}NormalThe [facility] Physician [facility] CenterComment on above:Performed By: #### DIFF CBC, CMP ####[place] [id number] USAALP [Catalytic activity/Vol] 109 U/LUlrs67-272Kwu [facility] Physician GroupComment on above:Performed By: #### DIFF CBC, CMP ####[place] [id number] USAALT [Catalytic activity/Vol]14 U/LNormal7-52The [facility] GroupComment on above:Performed By: #### DIFF CBC, CMP ####[place] [id number] USAAnion gap [Moles/Vol]11.4 mmol/LNormal6.0-15.0The [facility] Physician GroupComment on above:Performed By: #### DIFF CBC, CMP ####[place] [id number] USAAST [Catalytic activity/Vol]21 U/CIjgrmd64-30Poz [facility] Physician [facility] CenterComment on above:Performed By: #### DIFF CBC, CMP ####[place] [address] USABilirubin [Mass/Vol]0.4 mg/dL Normal0.3-1.0The [facility] Physician [facility] CenterComment on above:Performed By: #### DIFF CBC, CMP ####[place] [address] USACalcium [Mass/Vol]8.7 mg/dLNormal8.6-10.3The [facility] Comment on above:Performed By: #### DIFF CBC, CMP ####[place] [address] USAChloride [Moles/Vol]102 mmol/LNormal 98-107The [facility] Physician [facility] CenterComment on above:Performed By: #### DIFF CBC, CMP ####[place] [address] [place] CO2 [Moles/Vol]27.6 mmol/FBhhmwu47.0-31.0The [facility] Physician GroupComment on above:Performed By: #### DIFF CBC, CMP ####[place] [address] USACreatinine [Mass/Vol]0.96 mg/dLNormal0.70-1.30 The [facility] Physician GroupComment on above:Performed By: #### DIFF CBC, CMP ####[place] [address] [place] Creatinine Clr Calc Hkalvmvc19.22NormalThe [facility] Physician [facility] CenterComment on above:Result Comment: PERFORMED BY: [facility] [address] [place] [id number] PATHOLOGIST [employer]PER[employer] ANDRE PERALTA M.D.Performed By: #### DIFF CBC, CMP ####[place] [address] USAGFR/1.73 sq M.predicted MDRD (S/P/Bld) [Vol rate/Area]mL/min/{1.73_m2}NormalThe [facility] Physician GroupComment on above:Performed By: #### DIFF CBC, CMP ####[place] [id number] USAGlobulin (S) [Mass/Vol]3.0 g/dLNormalThe [facility] Physician GroupComment on above:Performed By: #### DIFF CBC, CMP ####[place] [address] USAGlucose [Mass/Vol]85 mg/fHUnzykx74-142Bse [facility] Physician GroupComment on above:Result Comment: Random Glucose Reference Range is dependent on time and content of last meal. Glucose of more than 200 mg/dL in a nonstressed, ambulatory subject supports the diagnosis of Diabetes Mellitus. ADA recommended reference rangePerformed By: #### DIFF CBC, CMP ####[place] [id number] USAPotassium [Moles/Vol] 4.0 mmol/LNormal3.5-5.1The [facility] Physician GroupComment on above:Performed By: #### DIFF CBC, CMP ####[place] [id number] USAProtein [Mass/Vol]6.4 g/dLNormal6.4-8.9The [facility] Physician GroupComment on above:Performed By: #### DIFF CBC, CMP ####[place] [id number] USASodium [Moles/Vol]137 mmol/JDrbrjf576-008Edr [facility] Physician GroupComment on above:Performed By: #### DIFF CBC, CMP ####[place] [id number] USAUrea nitrogen [Mass/Vol]21 mg/dLNormal7-25The [facility] Physician GroupComment on above:Performed By: #### DIFF CBC, CMP ####[place] [id number] USACreatinine [Mass/volume] in Serum or PlasmaOrdered By: Jose Alfredo Brantley on 51-57-8175Jgotzgfdyd [Mass/Vol] Creatinine [Mass/volume] in Serum or Plasma0.70-1.30[facility] CenterDiff and CBCon 98-89-5083TvhisicifookFobxhnMxjuszHwr Fire[place] Physician GroupComment on above:Performed By: #### DIFF CBC, CMP ####[address] [address] USAAnisocytosis Ql (Bld)Marked NormalThe [facility] Physician GroupComment on above:Performed By: #### DIFF CBC, CMP ####[address] [address] [place] Crenated RBCModerateNoCape Fear/Harnett Health Physician GroupComment on above: Performed By: #### DIFF CBC, CMP ####[address] [address] USAEosinophils/100 WBC (Bld)4 %High1-3The [facility] Physician GroupComment on above:Performed By: #### DIFF CBC, CMP ####[address] [address] USAErythrocyte distribution width (RBC) [Ratio]20.2 %High12.0-14.8The [facility] Comment on above:Performed By: #### DIFF CBC, CMP ####[address] [address] USAHematocrit (Bld) [Volume fraction] 35.5 %Low38.8-50.0The [facility] Physician GroupComment on above:Performed By: #### DIFF CBC, CMP ####[address] [address] USAHemoglobin (Bld) [Mass/Vol]11.8 g/dLLow13.0-17.0The [facility] Physician GroupComment on above:Performed By: #### DIFF CBC, CMP ####[address] [address] USAHypochromasiaSlight NormalBayfront Health St. Petersburg Emergency Room Physician [facility] Medical CenterComment on above:Performed By: #### DIFF CBC, CMP ####[address] [place] [address] [place] Large PlateletsSAnson Community Hospital Physician GroupComment on above:Result Comment: PERFORMED BY: [facility] [address] [id number] PATHOLOGIST [employer]ATING [employer] SUPERVISOR ANDRE PERALTA M.D.Performed By: #### DIFF CBC, CMP ####[place] [id number] USALymphocytes/100 WBC (Bld)15 %Xmg36-09Eae [facility] Physician GroupComment on above:Performed By: #### DIFF CBC, CMP ####[place] [id number] USAMacrocytosisSAnson Community Hospital Physician GroupComment on above:Performed By: #### DIFF CBC, CMP ####[address]H (RBC) [Entitic mass]25.6 pgLow27.5-35.2The [facility] Physician GroupComment on above:Performed By: #### DIFF CBC, CMP ####[place] [id number] [facility] (RBC) [Entitic vol]76.7 fLLow83.5-101The [facility] Physician GroupComment on above:Performed By: #### DIFF CBC, CMP ####[place] [address] USAMean Corpuscular HGB Conc33.3 g/dLNormal 32.5-35.6The [facility] Physician GroupComment on above:Performed By: #### DIFF CBC, CMP ####[place] [id number] USAMicrocytosisSAnson Community Hospital Physician GroupComment on above: Performed By: #### DIFF CBC, CMP ####[place] [id number] USAMonocytes/100 WBC (Bld)12 %High2-11The [facility] Physician GroupComment on above:Performed By: #### DIFF CBC, CMP ####[address] [address] USAPlatelet Estimate NormalNormalNormHCA Florida JFK North Hospital Physician GroupComment on above:Performed By: #### DIFF CBC, CMP ####[address] [address] USAPlatelet mean volume (Bld) [Entitic vol]10.1 fLNormal6.6-10.1The [facility] Physician GroupComment on above:Performed By: #### DIFF CBC, CMP ####[address] [address] [place] Platelets (Bld) [#/Vol]239 10*3/nTYujelo356-502Mod [facility]ician Group Comment on above:Performed By: #### DIFF CBC, CMP ####[address] [address] USAPoikilocytosisMarkedGadsden Community Hospital Physician GroupComment on above:Performed By: #### DIFF CBC, CMP ####[address] [address] USA PolychromasiaSlightNoCape Fear/Harnett Health Physician GroupComment on above:Performed By: #### DIFF CBC, CMP ####[address] [address] USARBC (Bld) [#/Vol]4.63 10*6/uLNormal3.90-5.60The [facility] Physician GroupComment on above:Performed By: #### DIFF CBC, CMP ####[address] [address] USA SchistocytesModerateGadsden Community Hospital Physician GroupComment on above: Performed By: #### DIFF CBC, CMP ####[address] [address] USASegmented neutrophils/100 WBC (Bld)69 %Ertwov19-01 The [facility] Physician GroupComment on above:Performed By: #### DIFF CBC, CMP ####[address] [address] USATarget CellsModerateNormalThe [facility] Physician GroupComment on above:Performed By: #### DIFF CBC, CMP ####[facility] [address] [place] [address] USAWBC (Bld) [#/Vol]7.3 10*3/uLNormal4.1-10.5The [facility] Physician GroupComment on above:Performed By: #### DIFF CBC, CMP ####[facility] [address] [place] [address] USAEosinophils Auto (Bld) [#/Vol] Ordered By: Jose Alfredo Brantley on 56-23-8870Azmhtsovnfr (Bld) [#/Vol]Automated eosinophil countUniversity Hospitals Tripoint Medical CenterEosinophils/100 WBC Auto (Bld) Ordered By: Jose Alfredo Brantley on 50-81-1362Vssmebunjgr/100 WBC (Bld)Automated eosinophil %[facility] Tri[facility] Medical CenterEosinophils/100 WBC Manual cnt (Bld)Ordered By: Jose Alfredo Brantley on 95-06-1220Nejktpnjgza/100 WBC (Bld) Eosinophils/100 leukocytes in Blood by Manual countHigh1-3FCincinnati Shriners HospitalErythrocyte distribution width Auto (RBC) [Ratio]Ordered By: Jose Alfredo Brantley on 09-32-2824Iabuhckrdyx distribution width (RBC) [Ratio]Erythrocyte distribution width [Ratio] by Automated hsuroTpyo95.0-14.8[facility] Tripoint Medical CenterErythrocyte morphology finding [Identifier] in BloodOrdered By: Jose Alfredo Brantley on 47-40-1653DNH morphology finding Nom (Bld)RBC morphologyUniversity Hospitals Tripoint Medical CenterGlobulin Calc (S) [Mass/Vol]Ordered By: Jose Alfredo Brantley on 97-27-6420Oapnzpmi (S) [Mass/Vol]Serum globulin measurement by calculation (mass/volume)[facility] Tripoint Medical CenterGlucose Glucometer (BldC) [Mass/Vol]Ordered By: Jose Alfredo Brantley on 28-66-5956Slyxnxt [Mass/Vol]Capillary blood glucose measurement by glucometer (mass/volume)[facility] Medical CenterComment on above:Random Glucose Reference Range is dependent on time and content of last meal. Glucose of more than 200 mg/dL in a nonstressed, ambulatory subject supports the diagnosis of Diabetes Mellitus.Glucose Poct Glucometerson 22-77-1289Sktpgbc [Mass/Vol]386 mg/dLGadsden Community Hospital GroupComment on above:Result Comment: Random Glucose Reference Range is dependent on time and content of last meal. Glucose of more than 200 mg/dL in a nonstressed, ambulatory subject supports the diagnosis of Diabetes Mellitus. PERFORMED BY: [address] [place] [address] PATHOLOGIST [employer] SUPERVISOR ANDRE PERALTA M.D.Performed By: #### GLULS #### Point of Care testing ,Jqpwgbl0LkfvvzRgx[address] Physician GroupComment on above:Result Comment: Glu2: Will Repeat TestPerformed By: #### GLULS #### Point of Care testing ,Mvhjnfo3KCZP NOTIFY /KyleCape Fear/Harnett Health Physician GroupComment on above: Result Comment: PERFORMED BY: [address] [place] [id number] PATHOLOGIST [employer]REATING [employer] SUPERVISOR ANDRE PERALTA M.D.Performed By: #### GLULS #### Point of Care testing ,Glucose [Mass/Vol]417 mg/dLOff scale [facility] Physician GroupComment on above:Result Comment: Random Glucose Reference Range is dependent on time and content of last meal. Glucose of more than 200 mg/dL in a nonstressed, ambulatory subject supports the diagnosis of Diabetes Mellitus.Performed By: #### GLULS #### Point of Care testing ,Mingcft2HnvgegInr[address] Physician Compranay on above:Result Comment: Glu2: Will Repeat Test PERFORMED BY: [address] [place] [id number] PATHOLOGIST TREATING [employer] SUPERVISOR ANDRE PERALTA M.D.Performed By: #### GLULS #### Point of Care testing ,Glucose [Mass/Vol]483 mg/dLOff scale [facility] Physician GroupComment on above:Result Comment: Random Glucose Reference Range is dependent on time and content of last meal. Glucose of more than 200 mg/dL in a nonstressed, ambulatory subject supports the diagnosis of Diabetes Mellitus.Performed By: #### GLULS #### Point of Care testing ,Glucose [Mass/Vol]393 mg/dLGadsden Community Hospital Physician GroupComment on above: Result Comment: Random Glucose Reference Range is dependent on time and content of last meal. Glucose of more than 200 mg/dL in a nonstressed, ambulatory subject supports the diagnosis of Diabetes Mellitus. PERFORMED BY: [address] [address] PATHOLOGIST [employer]ATING [employer] SUPERVISOR ANRDE PERALTA M.D.Performed By: #### GLULS #### Point of Care testing ,Glucose [Mass/Vol]85 mg/dLGadsden Community Hospital Physician GroupComment on above: Result Comment: Random Glucose Reference Range is dependent on time and content of last meal. Glucose of more than 200 mg/dL in a nonstressed, ambulatory subject supports the diagnosis of Diabetes Mellitus. PERFORMED BY: [facility] [address] [place] [address] PATHOLOGIST [employer]ATING [employer] SUPERVISOR ANDRE PERALTA M.D.Performed By: #### GLULS #### Point of Care testing ,Glucose [Mass/volume] in Serum or PlasmaOrdered By: Jose Alfredo Brantley on 06-18-2024 Glucose [Mass/Vol]Glucose [Mass/volume] in Serum or Vqhasl98-176KurvatyzfUniversity Hospitals Tripoint Medical CenterComment on above:ADA recommended reference rangeRandom Glucose Reference Range is dependent on time and content of last meal. Glucose of more than 200 mg/dL in a nonstressed, ambulatory subject supports the diagnosisof Diabetes Mellitus.Hematocrit Auto (Bld) [Volume fraction]Ordered By: Jose Alfredo Brantley on 66-42-2959Ewqibnedqz (Bld) [Volume fraction]Hematocrit [Volume Fraction] of Blood by Automated uolmeDfn15.8-50.0[facility] Medical CenterHemoglobin [Mass/volume] in BloodOrdered By: Jose Alfredo Brantley on 06-18-2024 Hemoglobin (Bld) [Mass/Vol]Hemoglobin [Mass/volume] in AwzdsNbt28.0-17.0 [facility] Medical CenterHypochromia LM Ql (Bld)Ordered By: Jose Alfredo Brantley on 49-74-9384Nrqfapnawer Ql (Bld)Hypochromia [Presence] in Blood by Light microscopyUniversity Hospitals Tripoint Medical CenterLeukocytes [#/volume] corrected for nucleated erythrocytes in Blood by Automated counOrdered By: Jose Alfredo Brantley on 36-61-3742NIT corrected for nucl RBC Auto (Bld) [#/Vol]Leukocytes [#/volume] corrected for nucleated erythrocytes in Blood by Automated coun4.1-10.5FCincinnati Shriners HospitalLymphocytes Auto (Bld) [#/Vol]Ordered By: Jose Alfredo Brantley on 26-98-4346Mukctjtyqmr (Bld) [#/Vol]Lymphocytes [#/volume] in Blood by Automated countUniversity Hospitals Tripoint Medical CenterLymphocytes/100 WBC Auto (Bld)Ordered By: Jose Alfredo Brantley on 48-76-9391Rhrlsbxupjh/100 WBC (Bld)Lymphocytes/100 leukocytes in Blood by Automated countUniversity Hospitals Tripoint Medical CenterLymphocytes/100 WBC Manual cnt (Bld)Ordered By: Jose Alfredo Brantley on 85-76-8836Wsdtdiilqxp/100 WBC (Bld) Lymphocytes/100 leukocytes in Blood by Manual hznmnZvi03-21AuprvodwqCleveland Clinic Avon HospitalH Auto (RBC) [Entitic mass]Ordered By: Jose Alfredo Brantley on 06-18-2024 MCH (RBC) [Entitic mass]MCH [Entitic mass] by Automated duezrQej38.5-35.2 [facility] HospitalHC Auto (RBC) [Mass/Vol]Ordered By: Jose Alfredo Brantley on 93-19-7042JEQN (RBC) [Mass/Vol]MCHC [Mass/volume] by Automated count 32.5-35.6FCincinnati Shriners HospitalMCV Auto (RBC) [Entitic vol]Ordered By: Jose Alfredo Brantley on 37-46-2848UDC (RBC) [Entitic vol]MCV [Entitic volume] by Automated lbekeTrk15.5-101[facility] Medical CenterMacrocytes LM Ql (Bld)Ordered By: Jose Alfredo Brantley on 64-45-5794Rzbgltgapl Ql (Bld)Macrocytes [Presence] in Blood by Light microscopyUniversity Hospitals Tripoint Medical Center Microcytes LM Ql (Bld)Ordered By: Jose Alfredo Brantley on 11-54-5020Dkulykexrd Ql (Bld) Microcytes [Presence] in Blood by Light microscopyUniversity Hospitals Tripoint Medical CenterMonocytes Auto (Bld) [#/Vol]Ordered By: Jose Alfredo Brantley on 12-77-0903Eawcpsbxw (Bld) [#/Vol]Automated blood monocyte countUniversity Hospitals Tripoint Medical Center Monocytes/100 WBC Auto (Bld)Ordered By: Jose Alfredo Brantley on 63-16-7387Fagpnnwpy/100 WBC (Bld)Automated monocyte %[facility] Medical CenterMonocytes/100 WBC Manual cnt (Bld)Ordered By: Jose Alfredo Brantley on 13-94-0535Wwiwphjvi/100 WBC (Bld) Monocytes/100 leukocytes in Blood by Manual countHigh2-11[facility] Medical CenterNeutrophils Auto (Bld) [#/Vol]Ordered By: Jose Alfredo Brantley on 90-16-6076Tqgbwpchgmg (Bld) [#/Vol]Neutrophils [#/volume] in Blood by Automated countUniversity Hospitals Tripoint Medical CenterNeutrophils/100 WBC Auto (Bld)Ordered By: Jose Alfredo Brantley on 01-76-6454Clirrnovqsh/100 WBC (Bld)Automated neutrophil % [facility] CenterNo Panel InformationOrdered By: Jose Alfredo Brantley on 95-50-3167Xxemete Glucose #[address]/CentervilleBedside Glucose CommentSee commentUniversity Hospitals Tripoint Medical CenterComment on above:Glu2: Will Repeat TestEstimated GFR (CKD-EPI)> 60.0 mL/MinUniversity Hospitals Tripoint Medical CenterPharmacy Creatinine Clearance (Chem50.22[facility] Medical CenterNucleated erythrocytes [Presence] in Blood by Automated countOrdered By: Jose Alfredo Brantley on 42-93-2007Paduswtne RBC Auto Ql (Bld)Nucleated erythrocytes [Presence] in Blood by Automated countUniversity Hospitals Tripoint Medical CenterPlatelet adequacy [Presence] in Blood by Light microscopyOrdered By: Jose Alfredo Brantley on 46-50-5892Iaypvzkdg LM Ql (Bld)Platelet adequacy [Presence] in Blood by Light microscopyNormalUniversity Hospitals Tripoint Medical CenterPlatelet mean volume Auto (Bld) [Entitic vol]Ordered By: Jose Alfredo Brantley on 83-28-4022Ijdenwvv mean volume (Bld) [Entitic vol]Platelet mean volume [Entitic volume] in Blood by Automated count6.6-10.1FCincinnati Shriners HospitalPlatelet morphology finding [Identifier] in BloodOrdered By: Jose Alfredo Brantley on 91-01-1565Gvcbiirb morphology finding Nom (Bld)Platelet morphology finding [Identifier] in Blood [facility] Tripoint Medical CenterPlatelets Auto (Bld) [#/Vol]Ordered By: Jose Alfredo Brantley on 70-92-0963Eprfphvci (Bld) [#/Vol]Platelets [#/volume] in Blood by Automated -906NpofcpskyCrystal Clinic Orthopedic Center Large [Presence] in Blood by Light microscopyOrdered By: Jose Alfredo Brantley on 06-18-2024 Platelets Large LM Ql (Bld)Platelets Large [Presence] in Blood by Light microscopyUniversity Hospitals Tripoint Medical CenterPoikilocytosis [Presence] in Blood by Light microscopyOrdered By: Jose Alfredo Brantley on 27-43-6986Ytqipukaksrnrl LM Ql (Bld) Poikilocytosis [Presence] in Blood by Light microscopyUniversity Hospitals Tripoint Medical CenterPolychromasia [Presence] in Blood by Light microscopyOrdered By: Jose Alfredo Brantley on 66-50-6689Miqtpoymtousa LM Ql (Bld)Polychromasia [Presence] in Blood by Light microscopyUniversity Hospitals Tripoint Medical CenterPotassium [Moles/volume] in Serum or PlasmaOrdered By: Jose Alfredo Brantley on 75-21-3485Yeeuyviju [Moles/Vol] Potassium [Moles/volume] in Serum or Plasma3.5-5.1FCincinnati Shriners HospitalProtein [Mass/volume] in Serum or PlasmaOrdered By: Jose Alfredo Brantley on 63-33-3248Bezwoue [Mass/Vol]Protein [Mass/volume] in Serum or Plasma6.4-8.9 [facility] Medical CenterRBC Auto (Bld) [#/Vol]Ordered By: Jose Alfredo Brantley on 79-00-4379IJY (Bld) [#/Vol]Erythrocytes [#/volume] in Blood by Automated count3.90-5.60Fire[facility] Medical CenterSchistocytes [Presence] in Blood by Light microscopyOrdered By: Jose Alfredo Brantley on 94-46-0438Ixtfcqqjgqcz LM Ql (Bld) Schistocytes [Presence] in Blood by Light microscopyGrand Lake Joint Township District Memorial Hospitalegmented neutrophils/100 WBC Manual cnt (Bld)Ordered By: Jose Alfredo Brantley on 70-10-3865Ujhouuqbu neutrophils/100 WBC (Bld)Manual blood segmented neutrophils/100 hfyjdmomrg65-62TwtecndamGrand Lake Joint Township District Memorial Hospitalerum or plasma albumin/globulin mass ratioOrdered By: Jose Alfredo Brantley on 22-16-6340Pzhoicz/Globulin [Mass ratio]Serum or plasma albumin/globulin mass ratioGrand Lake Joint Township District Memorial Hospitalerum or plasma anion gap determinationOrdered By: Jose Alfredo Brantley on 14-38-8429Ldrzn gap [Moles/Vol]Serum or plasma anion gap determination6.0-15.0 [facility] Memorial Hospitalodium [Moles/volume] in Serum or PlasmaOrdered By: Jose Alfredo Brantley on 26-98-3715Ynwfem [Moles/Vol]Sodium [Moles/volume] in Serum or Rfjafx532-957OussbcwuxUniversity Hospitals Tripoint Medical CenterTarget cells [Presence] in Blood by Light microscopyOrdered By: Jose Alfredo Brantley on 33-95-0691Bscnod cells LM Ql (Bld)Target cellsUniversity Hospitals Tripoint Medical CenterUrea nitrogen [Mass/volume] in Serum or PlasmaOrdered By: Jose Alfredo Brantley on 14-96-3511Obgq nitrogen [Mass/Vol] Urea nitrogen [Mass/volume] in Serum or Plasma7-25[facility] Medical CenterWBC Auto (Bld) [#/Vol]Ordered By: Jose Alfredo Brantley on 19-61-3360YDU (Bld) [#/Vol]Leukocytes [#/volume] in Blood by Automated count4.1-10.5FCincinnati Shriners HospitalComprehensive Metabolic Panelon 04-35-8655Kicaluy [Mass/Vol]3.3 g/dLLow3.5-5.7The [facility] Physician GroupComment on above: Performed By: #### CMP, SCAN CBC, PHOS, MG ####[facility] [address] [place] [address] USAAlbumin/Globulin [Mass ratio]1.2 {ratio}NormalThe [facility] Physician GroupComment on above:Performed By: #### CMP, SCAN CBC, PHOS, MG ####[place] [address] USAALP [Catalytic activity/Vol]109 U/RYgcl13-493Ofp [facility] Physician GroupComment on above:Performed By: #### CMP, SCAN CBC, PHOS, MG ####[place] [address] USAALT [Catalytic activity/Vol]12 U/LNormal7-52The [facility] Physician Group Comment on above:Performed By: #### CMP, SCAN CBC, PHOS, MG ####[place] [address] USAAnion gap [Moles/Vol] 11.1 mmol/LNormal6.0-15.0The [facility] Physician GroupComment on above:Performed By: #### CMP, SCAN CBC, PHOS, MG ####[place] [address] USAAST [Catalytic activity/Vol]20 U/GUesbqy94-56Zyf [facility] Physician GroupComment on above:Performed By: #### CMP, SCAN CBC, PHOS, MG ####[place] [address] USABilirubin [Mass/Vol]0.4 mg/dLNormal0.3-1.0The [facility] Physician [facility] Comment on above:Performed By: #### CMP, SCAN CBC, PHOS, MG ####[place] [address] USACalcium [Mass/Vol]8.4 mg/dLLow8.6-10.3The [facility] Physician GroupComment on above:Performed By: #### CMP, SCAN CBC, PHOS, MG ####[place] [address] USAChloride [Moles/Vol]101 mmol/FCjwaup18-153Iyq [facility] Physician GroupComment on above:Performed By: #### CMP, SCAN CBC, PHOS, MG ####[facility] [place] [address] USACO2 [Moles/Vol]27.8 mmol/RCazagg26.0-31.0The [facility] Physician GroupComment on above:Performed By: #### CMP, SCAN CBC, PHOS, MG ####[place] [address] [place] [address] USACreatinine [Mass/Vol]0.79 mg/dLNormal0.70-1.30The [facility] Physician GroupComment on above:Performed By: #### CMP, SCAN CBC, PHOS, MG ####[place] [address] [place] [address] USACreatinine Clr Calc Emvjokqx96.66NormHCA Florida JFK North Hospital Physician GroupComment on above:Performed By: #### CMP, SCAN CBC, PHOS, MG ####[place] [address] [place] [address] [place] GFR/1.73 sq M.predicted MDRD (S/P/Bld) [Vol rate/Area]mL/min/{1.73_m2}NormalThe [facility] Physician GroupComment on above:Performed By: #### CMP, SCAN CBC, PHOS, MG ####[place] [address] [place] [address] USAGlobulin (S) [Mass/Vol]2.8 g/dLNoCape Fear/Harnett Health Physician [facility] Medical CenterComment on above:Performed By: #### CMP, SCAN CBC, PHOS, MG ####[place] [address] USAGlucose [Mass/Vol]79 mg/xLOhcsrw28-938 The [facility] Physician GroupComment on above:Result Comment: Random Glucose Reference Range is dependent on time and content of last meal. Glucose of more than 200 mg/dL in a nonstressed, ambulatory subject supports the diagnosis of Diabetes Mellitus. ADA recommended reference rangePerformed By: #### CMP, SCAN CBC, PHOS, MG ####[place] [address] [place] [address] [place] Potassium [Moles/Vol]3.9 mmol/LNormal3.5-5.1The [facility] Physician GroupComment on above:Performed By: #### CMP, SCAN CBC, PHOS, MG ####[place] [address] USAProtein [Mass/Vol]6.1 g/dLLow 6.4-8.9The [facility] Physician GroupComment on above:Performed By: #### CMP, SCAN CBC, PHOS, MG ####[place] [address] USASodium [Moles/Vol]136 mmol/QVxpxvm755-121Gun [facility] Physician GroupComment on above:Performed By: #### CMP, SCAN CBC, PHOS, MG ####[place] [address] USAUrea nitrogen [Mass/Vol]22 mg/dLNormal7-25The [facility] Physician GroupComment on above: Performed By: #### CMP, SCAN CBC, PHOS, MG ####[place] [id number] USAGlucose Poct Glucometerson 06-17-2024 Bbjtzup1Gxb3: Cleaned MeterGadsden Community Hospital Physician GroupComment on above: Result Comment: PERFORMED BY: [place] [address] PATHOLOGIST [employer]ATING [employer] SUPERVISOR ANDRE PERALTA M.D.Performed By: #### GLULS #### Point of Care testing ,Glucose [Mass/Vol]229 mg/dLNoCape Fear/Harnett Health Physician GroupComment on above: Result Comment: Random Glucose Reference Range is dependent on time and content of last meal. Glucose of more than 200 mg/dL in a nonstressed, ambulatory subject supports the diagnosis of Diabetes Mellitus.Performed By: #### GLULS #### Point of Care testing ,Nvkksha0Jvm9: Cleaned MeterGadsden Community Hospital Physician GroupComment on above: Result Comment: PERFORMED BY: [place] [address] PATHOLOGIST [employer]ATING [employer]ANT SUPERVISOR ANDRE PERALTA M.D.Performed By: #### GLULS #### Point of Care testing ,Glucose [Mass/Vol]250 mg/dLGadsden Community Hospital Physician GroupComment on above: Result Comment: Random Glucose Reference Range is dependent on time and content of last meal. Glucose of more than 200 mg/dL in a nonstressed, ambulatory subject supports the diagnosis of Diabetes Mellitus.Performed By: #### GLULS #### Point of Care testing ,Glucose [Mass/Vol]352 mg/dLGadsden Community Hospital Physician GroupComment on above: Result Comment: Random Glucose Reference Range is dependent on time and content of last meal. Glucose of more than 200 mg/dL in a nonstressed, ambulatory subject supports the diagnosis of Diabetes Mellitus. PERFORMED BY: [place] [address] PATHOLOGIST T[employer]ATING [employer]ANT SUPERVISOR ANDRE PERALTA M.D.Performed By: #### GLULS ####Point of Care testing, Glucose [Mass/Vol]82 mg/dLGadsden Community Hospital Physician GroupComment on above: Result Comment: Random Glucose Reference Range is dependent on time and content of last meal. Glucose of more than 200 mg/dL in a nonstressed, ambulatory subject supports the diagnosis of Diabetes Mellitus. PERFORMED BY: [place] [address] PATHOLOGIST T[employer]ATING [employer]ANT SUPERVISOR ANDRE PERALTA M.D.Performed By: #### GLULS ####Point of Care testing, Magnesiumon 26-99-3401Rvyshttmn [Mass/Vol]1.7 mg/dLLow1.9-2.7The [facility] Physician GroupComment on above:Result Comment: PERFORMED BY: [place] [address] PATHOLOGIST T[employer]ATING [employer]ANT SUPERVISOR ANDRE PERALTA M.D.Performed By: #### CMP, SCAN CBC, PHOS, MG ####[facility] [address] [place] [address] [facility] Magnesium [Mass/volume] in Serum or PlasmaOrdered By: Jose Alfredo Brantley on 06-17-2024 Magnesium [Mass/Vol]Magnesium [Mass/volume] in Serum or PlasmaLow1.9-2.7 [facility] Medical CenterPhosphate [Mass/volume] in Serum or Plasma Ordered By: Jose Alfredo Brantley on 51-00-7830Chtdgzqyl [Mass/Vol]Phosphate [Mass/volume] in Serum or Plasma2.5-4.5FCincinnati Shriners HospitalPhosphoruson 47-84-8883Ejtsxvkbh [Mass/Vol]3.7 mg/dLNormal2.5-4.5The [facility] Physician GroupComment on above:Performed By: #### CMP, SCAN CBC, PHOS, MG ####[place] [address] USAScan and CBCon 10-00-8224YojuduiwxyllQkpgzmdkZqqypxIkj [facility] Physician GroupComment on above:Performed By: #### CMP, SCAN CBC, PHOS, MG ####[place] [address] USAAnisocytosis Ql (Bld)[facility] Physician [facility] CenterComment on above:Performed By: #### CMP, SCAN CBC, PHOS, MG ####[place] [address] USABasophils (Bld) [#/Vol]0.1 10*3/uLNormal0.0-0.2The [facility] Physician Group Comment on above:Performed By: #### CMP, SCAN CBC, PHOS, MG ####[place] [address] USABasophils/100 WBC (Bld)0.9 %Normal.The [facility] Physician GroupComment on above:Performed By: #### CMP, SCAN CBC, PHOS, MG ####[place] [id number] USACrenated RBCSlightGadsden Community Hospital Physician [facility] Medical CenterComment on above:Performed By: #### CMP, SCAN CBC, PHOS, MG ####[place] [address] USAEosinophils (Bld) [#/Vol]0.2 10*3/uLNormal0.0-0.45The [facility] Physician GroupComment on above: Performed By: #### CMP, SCAN CBC, PHOS, MG ####[place] [address] USAEosinophils/100 WBC (Bld)2.0 %Normal. The [facility] Physician GroupComment on above:Performed By: #### CMP, SCAN CBC, PHOS, MG ####[place] [address] USAErythrocyte distribution width (RBC) [Ratio]20.3 %High12.0-14.8The [facility] Physician GroupComment on above:Performed By: #### CMP, SCAN CBC, PHOS, MG ####[place] [address] [place] Hematocrit (Bld) [Volume fraction]35.1 %Low38.8-50.0The [facility] Physician GroupComment on above:Performed By: #### CMP, SCAN CBC, PHOS, MG ####[place] [address] USAHemoglobin (Bld) [Mass/Vol]11.5 g/dLLow13.0-17.0The [facility] Physician GroupComment on above: Performed By: #### CMP, SCAN CBC, PHOS, MG ####[place] [address] USAHypochromasiaModerateNormHCA Florida [facility]FK [facility] Hospital Physician GroupComment on above:Performed By: #### CMP, SCAN CBC, PHOS, MG ####[place] [id number] USALarge PlateletsSlightNoCape Fear/Harnett Health Physician GroupComment on above: Result Comment: PERFORMED BY: [place] [address] PATHOLOGIST [employer]ATING [employer]ANT SUPERVISOR ANDRE PERALTA M.D.Performed By: #### CMP, SCAN CBC, PHOS, MG ####[place] [address] [place] Lymphocytes (Bld) [#/Vol]1.7 10*3/uLNormal1.00-4.8The [facility] Comment on above:Performed By: #### CMP, SCAN CBC, PHOS, MG ####[place] [address] USALymphocytes/100 WBC (Bld)19.4 %Normal.The [facility] Physician GroupComment on above:Performed By: #### CMP, SCAN CBC, PHOS, MG ####[address] Brooks StreetMCH (RBC) [Entitic mass]25.5 pgLow27.5-35.2The [facility] Physician GroupComment on above:Performed By: #### CMP, SCAN CBC, PHOS, MG ####[address] StreetV (RBC) [Entitic vol]77.8 fLLow83.5-101The [facility] Physician GroupComment on above:Performed By: #### CMP, SCAN CBC, PHOS, MG ####[place] [address] USAMean Corpuscular HGB Conc32.8 g/hECivdpg76.5-35.6The [facility] Physician GroupComment on above:Performed By: #### CMP, SCAN CBC, PHOS, MG ####[place] [address] USAMicrocytosisSlightNormalThe [facility] Physician GroupComment on above:Performed By: #### CMP, SCAN CBC, PHOS, MG ####[place] [address] USAMonocytes (Bld) [#/Vol]1.2 10*3/uLHigh0.0-0.8The [facility] Physician GroupComment on above: Performed By: #### CMP, SCAN CBC, PHOS, MG ####[place] [address] USAMonocytes/100 WBC (Bld)14.4 %Normal. The [facility] Physician GroupComment on above:Performed By: #### CMP, SCAN CBC, PHOS, MG ####[place] [address] USANeutrophils (Bld) [#/Vol]5.4 10*3/uLNormal1.8-7.7The [facility] Physician GroupComment on above:Performed By: #### CMP, SCAN CBC, PHOS, MG ####[place] [address] USANeutrophils/100 WBC (Bld)63.3 %Normal.The [facility] Physician GroupComment on above:Performed By: #### CMP, SCAN CBC, PHOS, MG ####[place] [address] USANRBC%0.0 /100{WBC}Normal0-0.5The [facility] Physician GroupComment on above:Performed By: #### CMP, SCAN CBC, PHOS, MG ####[place] [address] USAPlatelet Estimate NormalNormalGadsden Community Hospital Physician GroupComment on above:Performed By: #### CMP, SCAN CBC, PHOS, MG ####[place] [phone] USAPlatelet mean volume (Bld) [Entitic vol]10.2 fLHigh 6.6-10.1The [facility] Physician GroupComment on above:Performed By: #### CMP, SCAN CBC, PHOS, MG ####[place] [phone] USAPlatelets (Bld) [#/Vol]213 10*3/fIHtyhkd237-155Eja [facility] Physician GroupComment on above:Performed By: #### CMP, SCAN CBC, PHOS, MG ####[place] [address] [place] PoikilocytosisMarkedNormHCA Florida [facility]FK North Hospital Physician GroupComment on above: Performed By: #### CMP, SCAN CBC, PHOS, MG ####[facility] [place] [address] USAPolychromasiaSlightGadsden Community Hospital Physician GroupComment on above:Performed By: #### CMP, SCAN CBC, PHOS, MG ####[place] [address] [place] [address] USARBC (Bld) [#/Vol]4.52 10*6/uLNormal3.90-5.60The [facility] Physician GroupComment on above:Performed By: #### CMP, SCAN CBC, PHOS, MG ####[address] [address] USASchistocytesHalifax Health Medical Center of Daytona Beach Physician GroupComment on above:Performed By: #### CMP, SCAN CBC, PHOS, MG ####[address] [address] USATarget CellsHalifax Health Medical Center of Daytona Beach Physician GroupComment on above: Performed By: #### CMP, SCAN CBC, PHOS, MG ####[address] [address] USAWBC (Bld) [#/Vol]8.5 10*3/uLNormal 4.1-10.5The [facility] Physician GroupComment on above:Performed By: #### CMP, SCAN CBC, PHOS, MG ####[address] [address] USABacteria identified Aer cx Nom (Unsp spec)Ordered By: Vargas Reis on 95-49-6852Jnwcruoaphv Wound CultureAbnoJoint Township District Memorial Hospital Blood Cultureon 97-80-6904Baxctbrn identified Cx Nom (Bld)NO GROWTH 5 DAYS PERFORMED BY: [facility] [address] [place] [id number] PATHOLOGIST [employer]ATING [employer] SUPERVISOR ANDRE PERALTA M.D.NormalThe [facility] Physician GroupComment on above: Performed By: #### GLULS #### Point of Care testing ,Bacteria identified Cx Nom (Bld)NO GROWTH 5 DAYS PERFORMED BY: [address] [address] PATHOLOGIST T[employer]ATING PLANT SUPERVISOR ANDRE PERALTA M.D.[facility] Physician GroupComment on above: Performed By: #### GLULS #### Point of Care testing ,Bacteria identified Cx Nom (Bld)NO GROWTH 5 DAYS PERFORMED BY: [address] [address] PATHOLOGIST T[employer]ATING [employer]ANT SUPERVISOR ANDRE PERALTA M.D.[facility] Physician GroupComment on above: Performed By: #### GLULS #### Point of Care testing ,CT abdomen w conon 53-56-5423KC abdomen w [facility] [place] [address] [place] [address] Scan Report Signed Patient: Manolo Roche MR#: [id number] 353 : 1935 Acct:[id number] Age/Sex: 89 / M ADM Date: 06/16/24 Loc: ER Room: Type: [facility] ER Attending Dr: Copies to: Vargas Reis [...] Sheldon Johnson M.D.06/16/2024 3:48 PM Dictation Location: [place] [address] Transcribed By: [facility] 06/16/24 1548 Dictated By: Sheldon Johnson DO 06/16/24 1535 Signed By: 06/16/24 1548NoCape Fear/Harnett Health Physician GroupComprehensive Metabolic Panelon 78-93-7477Ibzvllo [Mass/Vol]3.5 g/dLNormal3.5-5.7The [facility] Comment on above:Performed By: #### GLULS #### Point of Care testing ,Albumin/Globulin [Mass ratio]1.2 {ratio}NormalThe [facility] Comment on above:Performed By: #### GLULS #### Point of Care testing ,ALP [Catalytic activity/Vol]116 U/JLfld01-525Xce [facility] Comment on above:Performed By: #### GLULS #### Point of Care testing ,ALT [Catalytic activity/Vol]17 U/LNormal7-52The [facility] Comment on above:Performed By: #### GLULS #### Point of Care testing ,Anion gap [Moles/Vol]10.2 mmol/LNormal6.0-15.0The [facility] Comment on above:Performed By: #### GLULS #### Point of Care testing ,AST [Catalytic activity/Vol]24 U/QXeemkv53-79Vew [facility] Comment on above:Performed By: #### GLULS #### Point of Care testing ,Bilirubin [Mass/Vol]0.4 mg/dLNormal0.3-1.0The [facility] Physician GroupComment on above:Performed By: #### GLULS #### Point of Care testing ,Calcium [Mass/Vol]8.8 mg/dLNormal8.6-10.3The [facility] Physician GroupComment on above:Performed By: #### GLULS #### Point of Care testing ,Chloride [Moles/Vol]98 mmol/ZZojahv55-079Ahs [facility] Physician GroupComment on above:Performed By: #### GLULS #### Point of Care testing ,CO2 [Moles/Vol]30.4 mmol/ZEacqyz65.0-31.0The [facility] Physician GroupComment on above:Performed By: #### GLULS #### Point of Care testing ,Creatinine [Mass/Vol]1.10 mg/dLNormal0.70-1.30The [facility] Comment on above:Performed By: #### GLULS #### Point of Care testing ,Creatinine Clr Calc Oiznfbci74.08NormHCA Florida [facility] Hospital Physician GroupComment on above:Result Comment: PERFORMED BY: [address] [place] [address] PATHOLOGIST T[employer]ATING [employer] SUPERVISOR ANDRE PERALTA M.D.Performed By: #### GLULS #### Point of Care testing ,GFR/1.73 sq M.predicted MDRD (S/P/Bld) [Vol rate/Area]mL/min/{1.73_m2}NormalThe [facility] Physician GroupComment on above:Performed By: #### GLULS #### Point of Care testing ,Globulin (S) [Mass/Vol]3.0 g/dLNoCape Fear/Harnett Health Physician GroupComment on above:Performed By: #### GLULS #### Point of Care testing ,Glucose [Mass/Vol]118 mg/fCUney64-450Ust [facility] Physician GroupComment on above:Result Comment: Random Glucose Reference Range is dependent on time and content of last meal. Glucose of more than 200 mg/dL in a nonstressed, ambulatory subject supports the diagnosis of Diabetes Mellitus. ADA recommended reference rangePerformed By: #### GLULS #### Point of Care testing ,Potassium [Moles/Vol]4.6 mmol/LNormal3.5-5.1The [facility] Comment on above:Performed By: #### GLULS #### Point of Care testing ,Protein [Mass/Vol]6.5 g/dLNormal6.4-8.9The [facility] Physician GroupComment on above:Performed By: #### GLULS #### Point of Care testing ,Sodium [Moles/Vol]134 mmol/WDjm898-305Ivp [facility] Physician GroupComment on above:Performed By: #### GLULS #### Point of Care testing ,Urea nitrogen [Mass/Vol]29 mg/dLHigh7-25The [facility] Physician GroupComment on above:Performed By: #### GLULS #### Point of Care testing ,ECG 12 lead ECGon 40-58-2912NNF 12 lead ECGVETERANS HEALTH [place] [address] Electrocardiograph Report Signed Patient: Manolo Roche MR#: [id number] 353 : 1935 Acct:[id number] Age/Sex: 89 / M ADM Date: 06/16/24 Loc: Room: [address] [place] [address] Type: ADM IN Attending Dr: Jose Alfredo [...] Anterior leads Confirmed by MARVIN KONG DO ([id number]) on 06/16/2024 7:24:37 PM Referred By: Electronically Signed By: MARVIN KONG DO Transcribed By: MUS Signed By Marvin Kong DO 06/16 1924[facility] Physician [facility] Medical CenterGlucose Poct Glucometerson 06-16-2024 Glucose [Mass/Vol]385 mg/dLSteven Community Medical CenterComment on above: Result Comment: Random Glucose Reference Range is dependent on time and content of last meal. Glucose of more than 200 mg/dL in a nonstressed, ambulatory subject supports the diagnosis of Diabetes Mellitus. PERFORMED BY: [address] [address] PATHOLOGIST T[employer]ATING PLANT SUPERVISOR ANDRE PERALTA M.D.Performed By: #### GLULS ####Point of Care testing, Gzkvhyq1VpjxlnL[address] Physician GroupComment on above:Result Comment: Glu2: Will Repeat TestPerformed By: #### GLULS ####Point of Care testing, Jgboseg7RWDG NOTIFY DR/RNNoCape Fear/Harnett Health Physician GroupComment on above: Result Comment: PERFORMED BY: [address] [place] [address] PATHOLOGIST TREATING PLANT SUPERVISOR ANDRE PERALTA M.D.Performed By: #### GLULS ####Point of Care testing, Glucose [Mass/Vol]401 mg/dLOff scale highBayfront Health St. Petersburg Emergency Room Physician GroupComment on above:Result Comment: Random Glucose Reference Range is dependent on time and content of last meal. Glucose of more than 200 mg/dL in a nonstressed, ambulatory subject supports the diagnosis of Diabetes Mellitus.Performed By: #### GLULS ####Point of Care testing,Helmet cells [Presence] in Blood by Light microscopyOrdered By: Vargas Reis on 57-93-9386Ldegui cells LM Ql (Bld)Helmet cell detectionUniversity Hospitals Tripoint Medical CenterLaboratory - Microbiology and Antimicrobial susceptibilityOrdered By: Marvin Kong on 36-20-1280Hjhpdmxw identified Cx Nom (Bld)NO GROWTH 5 DAYS [facility] Medical CenterBacteria identified Cx Nom (Bld)NO GROWTH 5 DAYSUniversity Hospitals Tripoint Medical CenterLaboratory - Microbiology and Antimicrobial susceptibilityOrdered By: Vargas Reis on 63-40-3128Uwdyacdv identified Cx Nom (Bld)NO GROWTH 5 DAYSUniversity Hospitals Tripoint Medical CenterLactate [Moles/volume] in Serum or PlasmaOrdered By: Marvin Kong on 21-71-7271Dzlhftu [Moles/Vol] Lactate [Moles/volume] in Serum or Plasma0.5-2.2FCincinnati Shriners HospitalLactic Acidon 91-40-2894Kynlkqv [Moles/Vol]1.0 mmol/LNormal0.5-2.2The [facility] Physician [facility] Medical CenterComment on above:Result Comment: PERFORMED BY: [address] [address] PATHOLOGIST TREATING [employer]ANT SUPERVISOR ANDRE PERALTA M.D.Performed By: #### GLULS #### Point of Care testing ,Monocyte distribution width [Entitic volume] in Blood by AutomatedOrdered By: Vargas Reis on 37-95-5798Ddcbwxeo distribution width Auto (Bld) [Entitic vol] Monocyte distribution width [Entitic volume] in Blood by AutomatedHigh0.00-20.00 [facility] Medical CenterComment on above:For adults in ED, MDW > 20.0 may be associated with a higher risk of sepsis during the first 12 hrs of hospital admissionScan and CBCon 78-67-0139DifqokwihnoxXinomkKrqlrxVci [place] Physician GroupComment on above:Performed By: #### GLULS #### Point of Care testing ,Anisocytosis Ql (Bld)[facility] Physician [facility] Medical CenterComment on above: Performed By: #### GLULS #### Point of Care testing ,Basophils (Bld) [#/Vol]0.0 10*3/uLNormal0.0-0.2The [facility] Physician [facility] Comment on above:Result Comment: PERFORMED BY: [facility] [address] [place] [address] PATHOLOGIST T[employer]ATING [employer]ANT SUPERVISOR ANDRE PERALTA M.D.Performed By: #### GLULS #### Point of Care testing ,Basophils/100 WBC (Bld)0.4 %Normal.The [facility] Physician GroupComment on above:Performed By: #### GLULS #### Point of Care testing ,Crenated RBCSAnson Community Hospital Physician GroupComment on above:Performed By: #### GLULS #### Point of Care testing ,Eosinophils (Bld) [#/Vol]0.1 10*3/uLNormal0.0-0.45The [facility] Physician [facility] Comment on above:Performed By: #### GLULS #### Point of Care testing ,Eosinophils/100 WBC (Bld)0.5 %Normal.The [facility] Physician GroupComment on above:Performed By: #### GLULS #### Point of Care testing ,Erythrocyte distribution width (RBC) [Ratio]20.2 %High12.0-14.8The [facility] Physician GroupComment on above:Performed By: #### GLULS #### Point of Care testing ,Helmet CellsSAnson Community Hospital Physician GroupComment on above:Performed By: #### GLULS #### Point of Care testing ,Hematocrit (Bld) [Volume fraction]36.1 %Low38.8-50.0The [facility] Physician GroupComment on above:Performed By: #### GLULS #### Point of Care testing ,Hemoglobin (Bld) [Mass/Vol]11.9 g/dLLow13.0-17.0The [facility] Physician [facility] Comment on above:Performed By: #### GLULS #### Point of Care testing ,HypochromasiaModerateGadsden Community Hospital Physician GroupComment on above: Performed By: #### GLULS #### Point of Care testing ,Lymphocytes (Bld) [#/Vol]2.3 10*3/uLNormal1.00-4.8The [facility] Physician [facility] Comment on above:Performed By: #### GLULS #### Point of Care testing ,Lymphocytes/100 WBC (Bld)22.7 %Normal.The [facility] Physician GroupComment on above:Performed By: #### GLULS #### Point of Care testing ,MacrocytosisSAnson Community Hospital Physician GroupComment on above:Performed By: #### GLULS #### Point of Care testing ,MCH (RBC) [Entitic mass]25.5 pgLow27.5-35.2The [facility] Physician GroupComment on above:Performed By: #### GLULS #### Point of Care testing ,MCV (RBC) [Entitic vol]77.4 fLLow83.5-101The [facility] Physician GroupComment on above:Performed By: #### GLULS #### Point of Care testing ,Mean Corpuscular HGB Conc33.0 g/uETmfcbu79.5-35.6The [facility] Comment on above:Performed By: #### GLULS #### Point of Care testing ,MicrocytosisSAnson Community Hospital Physician GroupComment on above:Performed By: #### GLULS #### Point of Care testing ,Monocytes (Bld) [#/Vol]1.2 10*3/uLHigh0.0-0.8The [facility] Comment on above:Performed By: #### GLULS #### Point of Care testing ,Monocytes/100 WBC (Bld)21.77 %High0.00-20.00The [facility] Comment on above:Result Comment: For adults in ED, MDW > 20.0 may be associated with a higher risk of sepsis during the first 12 hrs of hospital admissionPerformed By: #### GLULS #### Point of Care testing ,Monocytes/100 WBC (Bld)11.5 %Normal.The [facility] Physician GroupComment on above:Performed By: #### GLULS #### Point of Care testing ,Neutrophils (Bld) [#/Vol]6.5 10*3/uLNormal1.8-7.7The [facility] Physician [facility] Comment on above:Performed By: #### GLULS #### Point of Care testing ,Neutrophils/100 WBC (Bld)64.9 %Normal.The [facility] Physician GroupComment on above:Performed By: #### GLULS #### Point of Care testing ,NRBC%0.1 /100{WBC}Normal0-0.5The [facility] Physician GroupComment on above: Performed By: #### GLULS #### Point of Care testing ,Platelet EstimateNormalNormalGadsden Community Hospital Physician GroupComment on above:Performed By: #### GLULS #### Point of Care testing ,Platelet mean volume (Bld) [Entitic vol]10.9 fLHigh6.6-10.1The [facility] Physician GroupComment on above:Performed By: #### GLULS #### Point of Care testing ,Platelet MorphologyNormalNormalNoCape Fear/Harnett Health Physician GroupComment on above:Result Comment: PERFORMED BY: [facility] [place] [address] PATHOLOGIST T[employer]ATING [employer]ANT SUPERVISOR ANDRE PERALTA M.D.Performed By: #### GLULS #### Point of Care testing ,Platelets (Bld) [#/Vol]233 10*3/sHMbvofj331-753Tgw [facility] Physician Group Comment on above:Performed By: #### GLULS #### Point of Care testing ,PoikilocytosisMarkedGadsden Community Hospital Physician GroupComment on above: Performed By: #### GLULS #### Point of Care testing ,PolychromasiaModerateGadsden Community Hospital Physician GroupComment on above: Performed By: #### GLULS #### Point of Care testing ,RBC (Bld) [#/Vol]4.67 10*6/uLNormal3.90-5.60The [facility] Physician [facility] Comment on above:Performed By: #### GLULS #### Point of Care testing ,SchistocytesModerateGadsden Community Hospital Physician GroupComment on above: Performed By: #### GLULS #### Point of Care testing ,Target CellsModerateGadsden Community Hospital Physician GroupComment on above: Performed By: #### GLULS #### Point of Care testing ,WBC (Bld) [#/Vol]10.1 10*3/uLNormal4.1-10.5The [facility] Physician GroupComment on above:Performed By: #### GLULS #### Point of Care testing ,Superficial Wound Cultureon 27-51-2458Mqaenogzgpt Wound CultureORGANISM: Staphylococcus aureus (O:STAAUR) Quantity of [...] RESISTANT TO ALL B-LACTAM DRUGS. PERFORMED BY: [address] [address] PATHOLOGIST TREATING PLANT SUPERVISOR ANDRE PERALTA M.D.NormalThe [facility] Physician GroupComment on above: Performed By: #### GLULS #### Point of Care testing ,Basic Metabolic Panelon 28-74-8320Kdgto gap [Moles/Vol]11.5 mmol/LNormal 6.0-15.0The [facility] Physician GroupComment on above:Performed By: #### GLULS #### Point of Care testing ,Calcium [Mass/Vol]8.6 mg/dLNormal8.6-10.3The [facility] Physician GroupComment on above:Performed By: #### GLULS #### Point of Care testing ,Chloride [Moles/Vol]103 mmol/WWlbxaw59-114Ffz [facility] Physician GroupComment on above:Performed By: #### GLULS #### Point of Care testing ,CO2 [Moles/Vol]27.5 mmol/BAjmwsz26.0-31.0The [facility] Physician GroupComment on above:Performed By: #### GLULS #### Point of Care testing ,Creatinine [Mass/Vol]0.75 mg/dLNormal0.70-1.30The [facility]ician Group Comment on above:Performed By: #### GLULS #### Point of Care testing ,Creatinine Clr Calc Nwvydgtb79.91NormalThe [facility] Physician GroupComment on above:Result Comment: PERFORMED BY: [facility] [address] [place] [address] PATHOLOGIST [employer]ATING [employer] SUPERVISOR ANDRE PERALTA M.D.Performed By: #### GLULS #### Point of Care testing ,GFR/1.73 sq M.predicted MDRD (S/P/Bld) [Vol rate/Area]mL/min/{1.73_m2}NormalThe [facility] Physician GroupComment on above:Performed By: #### GLULS #### Point of Care testing ,Glucose [Mass/Vol]80 mg/wAYnauay11-294Wol [facility] Physician GroupComment on above:Result Comment: Random Glucose Reference Range is dependent on time and content of last meal. Glucose of more than 200 mg/dL in a nonstressed, ambulatory subject supports the diagnosis of Diabetes Mellitus. ADA recommended reference rangePerformed By: #### GLULS #### Point of Care testing ,Potassium [Moles/Vol]4.0 mmol/LNormal3.5-5.1The [facility] Physician Group Comment on above:Performed By: #### GLULS #### Point of Care testing ,Sodium [Moles/Vol]138 mmol/FRxfklz438-017Jhk [facility] Physician GroupComment on above:Performed By: #### GLULS #### Point of Care testing ,Urea nitrogen [Mass/Vol]19 mg/dLNormal7-25The [facility] Physician GroupComment on above:Performed By: #### GLULS #### Point of Care testing ,Calcium [Mass/volume] in Serum or PlasmaOrdered By: Mikel Root on 05-80-5547Prrsasg [Mass/Vol]Calcium [Mass/volume] in Serum or Plasma8.6-10.3 [facility] Medical CenterCarbon dioxide, total [Moles/volume] in Serum or PlasmaOrdered By: Mikel Padillaed on 99-06-4061PG0 [Moles/Vol]Carbon dioxide, total [Moles/volume] in Serum or Xynarn77.0-31.0[facility] CenterChloride [Moles/volume] in Serum or PlasmaOrdered By: Mikel Padillaed on 92-40-0450Ebqnqaor [Moles/Vol]Chloride [Moles/volume] in Serum or Qpblno32-463OfvtuucdaUniversity Hospitals Tripoint Medical CenterCreatinine [Mass/volume] in Serum or PlasmaOrdered By: Mikel Root on 08-87-3948Nnjtcxgxsx [Mass/Vol] Creatinine [Mass/volume] in Serum or Plasma0.70-1.30[facility] Medical CenterGlucose Glucometer (BldC) [Mass/Vol]Ordered By: iMkel Root on 23-68-1902Akpvqds [Mass/Vol]Capillary blood glucose measurement by glucometer (mass/volume)[facility] CenterComment on above:Random Glucose Reference Range is dependent on time and content of last meal. Glucose of more than 200 mg/dL in a nonstressed, ambulatory subject supports the diagnosis of Diabetes Mellitus.Glucose Poct Glucometerson 50-46-4924Mjmfyqu [Mass/Vol]87 mg/dLNoCape Fear/Harnett Health Physician GroupComment on above:Result Comment: Random Glucose Reference Range is dependent on time and content of last meal. Glucose of more than 200 mg/dL in a nonstressed, ambulatory subject supports the diagnosis of Diabetes Mellitus. PERFORMED BY: [place] [address] [place] [address] PATHOLOGIST T[employer]ATING [employer]ANT SUPERVISOR ANDRE PERALTA M.D.Performed By: #### GLULS #### Point of Care testing ,Glucose [Mass/volume] in Serum or PlasmaOrdered By: Mikel Root on 66-07-6970Qfpatow [Mass/Vol]Glucose [Mass/volume] in Serum or Qinsdf16-193 [facility] CenterComment on above:ADA recommended reference rangeRandom Glucose Reference Range is dependent on time and content of last meal. Glucose of more than 200 mg/dL in a nonstressed, ambulatory subject supports the diagnosisof Diabetes Mellitus.No Panel InformationOrdered By: Mikel Root on 50-05-5740Ilrcacfwi GFR (CKD-EPI)> 60.0 mL/MinUniversity Hospitals Tripoint Medical CenterPharmacy Creatinine Clearance (Chem60.91[facility]point Medical CenterPotassium [Moles/volume] in Serum or PlasmaOrdered By: Mikel Root on 96-14-7524Yyxhbpdgz [Moles/Vol]Potassium [Moles/volume] in Serum or Plasma3.5-5.1FSelect Medical Specialty Hospital - Cantonerum or plasma anion gap determinationOrdered By: Mikel Root on 52-65-6153Wwkxb gap [Moles/Vol]Serum or plasma anion gap determination6.0-15.0 [facility] Hospitalodium [Moles/volume] in Serum or PlasmaOrdered By: Mikel Root on 86-63-0814Ljsgjc [Moles/Vol]Sodium [Moles/volume] in Serum or Dnrcgh854-651OmbdjkhstUniversity Hospitals Tripoint Medical CenterUrea nitrogen [Mass/volume] in Serum or PlasmaOrdered By: Mikel Root on 58-04-5117Iunv nitrogen [Mass/Vol]Urea nitrogen [Mass/volume] in Serum or Plasma 7-25University [facility]point Medical CenterX-ray reportOrdered By: Sofia Rosales on 15-77-2110Evfoc reportVETERANS HEALTH [place] [address] XRay Report Signed Patient: Manolo Roche MR#: [id number] : 1935 Acct:[id number] Age/Sex: 89 / M ADM Date: 4 Loc: Room: [address] [place] [address] Type: ADM IN Attending Dr: Abdulaziz Root [...] Sofia Rosales M.D.05/25/2024 8:13 AM Dictation Location: [place] [address] Transcribed By: [facility] 05/25/24812 Dictated By: Sofia Rosales MD 05/25/24809 Signed By: 05/25/24812 [facility] Work Phone: XR chest 2V*on 63-14-9785XR chest 2V*[facility] [place] [address] XRay Report Signed Patient: Manolo Roche MR#: [id number] : 1935 Acct:[id number] Age/Sex: 89 / M ADM Date: 05/24/24 Loc: Room: [address] [place] [address] Type: ADM IN Attending Dr: Abdulaziz Root [...] Sofia Rosales M.D.05/25/2024 8:13 AM Dictation Location: [place] [address] Transcribed By: [facility] 05/25/24812 Dictated By: Sofia Rosales MD 05/25/24809 Signed By: 05/25/24812[facility] CenterBasic Metabolic Panelon 00-55-5111Epufp gap [Moles/Vol]11.9 mmol/LNormal6.0-15.0The [facility] For Children - PhiladelphiaComment on above:Performed By: #### BMP ####[place] [address] [place] [address] USACalcium [Mass/Vol]8.8 mg/dLNormal 8.6-10.3The [facility] Physician [facility] Medical CenterComment on above:Performed By: #### BMP ####[address] [address] [place] Chloride [Moles/Vol]103 mmol/BBnuese62-090Men [facility] Physician [facility] Medical CenterComment on above:Performed By: #### BMP ####[address] [address] USACO2 [Moles/Vol]27.0 mmol/NWtrpea04.0-31.0The [facility] Children - PhiladelphiaComment on above:Performed By: #### BMP ####[place] [address] [place] [address] USACreatinine [Mass/Vol] 0.82 mg/dLNormal0.70-1.30The [facility] Physician [facility] Medical CenterComment on above:Performed By: #### BMP ####[place] [id number] USACreatinine Clr Calc Dvibhoqg85.04NormalThe [facility] Physician Group Comment on above:Result Comment: PERFORMED BY: [facility] [address] [id number] PATHOLOGIST [employer]PER[employer] ANDRE PERALTA M.D.Performed By: #### BMP ####[place] [address] USAGFR/1.73 sq M.predicted MDRD (S/P/Bld) [Vol rate/Area]mL/min/{1.73_m2}NormalThe [facility] Physician Group Comment on above:Performed By: #### BMP ####[place] [address] USAGlucose [Mass/Vol]108 mg/iZVnqc35-492Gqu [facility] Physician GroupComment on above:Result Comment: Random Glucose Reference Range is dependent on time and content of last meal. Glucose of more than 200 mg/dL in a nonstressed, ambulatory subject supports the diagnosis of Diabetes Mellitus. ADA recommended reference rangePerformed By: #### BMP ####[place] [address] USAPotassium [Moles/Vol]3.9 mmol/LNormal3.5-5.1The [facility] Physician GroupComment on above:Performed By: #### BMP ####[place] [address] USASodium [Moles/Vol]138 mmol/FEgbfrf734-069Fym [facility] Physician GroupComment on above:Performed By: #### BMP ####[place] [address] USAUrea nitrogen [Mass/Vol]22 mg/dLNormal7-25The [facility] Physician GroupComment on above:Performed By: #### BMP ####[address] [address] USACoagulation Profileon 76-54-9033rPVL Coag (Bld) [Time]30.1 aNezmfb77.1-36.5The [facility] Physician GroupComment on above:Result Comment: A hematocrit value greater than 55% may lead to inaccurate results in coagulation testing. Patients having hematocrit values >55% require a special collection tube for coagulation studies. Please contact the laboratory at [phone] for redraw instructions. PERFORMED BY: [facility] [address] [place] [address] PATHOLOGIST [employer]PER[employer] ANDRE PERALTA M.D.Performed By: #### PP ####[place] [address] [place] [address] USAINR Coag (PPP) [Relative time]1.1 {INR}NormalThe [facility] Physician [facility] Medical CenterComment on above:Result Comment: INR Therapeutic Range A) [...] valves: 3 - 4.5Performed By: #### PP ####[address] [address] USAPT Coag (PPP) [Time]12.9 sNormal9.0-12.9The [facility] Physician [facility] Medical CenterComment on above: Result Comment: A hematocrit value greater than 55% may lead to inaccurate results in coagulation testing. Patients having hematocrit values >55% require a special collection tube for coagulation studies. Please contact the laboratory at [phone] for redraw instructions.Performed By: #### PP ####[place] [address] [place] [address] USAGlucose Poct Glucometerson 82-52-2273Zkgqulx [Mass/Vol]68 mg/dLNormRio Grande HospitalComment on above:Result Comment: Random Glucose Reference Range is dependent on time and content of last meal. Glucose of more than 200 mg/dL in a nonstressed, ambulatory subject supports the diagnosis of Diabetes Mellitus. PERFORMED BY: [facility] [address] [place] [address] PATHOLOGIST [employer]PER[employer] ANDRE PERALTA M.D.Performed By: #### GLULS #### Point of Care testing ,Glucose [Mass/Vol]87 mg/dLGadsden Community Hospital Physician GroupComment on above: Result Comment: Random Glucose Reference Range is dependent on time and content of last meal. Glucose of more than 200 mg/dL in a nonstressed, ambulatory subject supports the diagnosis of Diabetes Mellitus. PERFORMED BY: [address] [place] [address] PATHOLOGIST [employer]PER[employer] ANDRE PERALTA M.D.Performed By: #### GLULS #### Point of Care testing ,Glucose [Mass/Vol]100 mg/dLGadsden Community Hospital Physician GroupComment on above: Result Comment: Random Glucose Reference Range is dependent on time and content of last meal. Glucose of more than 200 mg/dL in a nonstressed, ambulatory subject supports the diagnosis of Diabetes Mellitus. PERFORMED BY: [address] [address] PATHOLOGIST [employer] SUPER[employer]OR ANDRE PERALTA M.D.Performed By: #### GLULS #### Point of Care testing ,Wjpcxfe7RqbtrqYta Firelands Physician GroupComment on above:Result Comment: Glu2: Result Not Confirmed PERFORMED BY: [address] [place] [address] PATHOLOGIST [employer] SUPERVISOR ANDRE PERALTA M.D.Performed By: #### GLULS ####Point of Care testing, Glucose [Mass/Vol]55 mg/dLOff scale [facility] Physician GroupComment on above:Result Comment: Random Glucose Reference Range is dependent on time and content of last meal. Glucose of more than 200 mg/dL in a nonstressed, ambulatory subject supports the diagnosis of Diabetes Mellitus.Performed By: #### GLULS ####Point of Care testing,INR in Platelet poor plasma by Coagulation assayOrdered By: Mikel Root on 15-23-9089HHZ Coag (PPP) [Relative time]INR in Platelet poor [...] 4.5No Panel InformationOrdered By: Mikel Root on 03-17-8719Loemsiw Glucose CommentSee commentUniversity Hospitals Tripoint Medical CenterComment on above:Glu2: Result Not ConfirmedProthrombin time (PT)Ordered By: Mikel Root on 05-04-7973HG Coag (PPP) [Time]Prothrombin time (PT)9.0-12.9[facility] Medical CenterComment on above:A hematocrit value greater than 55% may lead to inaccurate results in coagulation testing. Patientshaving hematocrit values >55% require a special collection tube for coagulation studies. Please contact the laboratory at [phone] for redraw instructions.aPTT in Platelet poor plasma by Coagulation assayOrdered By: Mikel Root on 52-56-0673xJWP Coag (PPP) [Time]Activated partial thromboplastin time (aPTT) in platelet poor plasma by coagulation a25.1-36.5FCincinnati Shriners HospitalComment on above:A hematocrit value greater than 55% may lead to inaccurate results in coagulation testing. Patientshaving hematocrit values >55% require a special collection tube for coagulation studies. Please contact the laboratory at [phone] for redraw instructions.Acanthocytes [Presence] in Blood by Light microscopyOrdered By: Mikel Root on 21-22-5227Vcfsjfwjrgwb LM Ql (Bld)SlightUniversity Hospitals Tripoint Medical CenterAcanthocytes LM Ql (Bld)Acanthocytes [Presence] in Blood by Light microscopyUniversity Hospitals Tripoint Medical CenterAnisocytosis LM Ql (Bld) Ordered By: Mikel Root on 23-24-1612Yyyrauqbfdzp Ql (Bld) Anisocytosis [Presence] in Blood by Light microscopyUniversity Hospitals Tripoint Medical CenterAnisocytosis [Presence] in Blood by Light microscopyOrdered By: Mikel Root on 91-46-9058Osybjsomsrjk Ql (Bld)SlightNormalUniversity Hospitals Tripoint Medical CenterComment on above:Performed By: #### BMP, DIFF CBC ####[facility] [address] [place] [address] USABasic Metabolic Panelon 33-01-7431SXE/1.73 sq M.predicted MDRD (S/P/Bld) [Vol rate/Area]mL/min/{1.73_m2}NormalThe [facility] Physician GroupComment on above: Performed By: #### BMP, DIFF CBC ####[facility] [address] [place] [address] USABasophils Auto (Bld) [#/Vol]Ordered By: Mikel Root on 09-43-5039Folknekgr (Bld) [#/Vol]N/[facility]aritan HospitalBasophils (Bld) [#/Vol]Automated basophil countUniversity Hospitals Tripoint Medical CenterBasophils/100 WBC Auto (Bld)Ordered By: Mikel Root on 25-02-8799Sgeksefcg/100 WBC (Bld)N/[facility] Basophils/100 WBC (Bld)Automated basophil %[facility] Basophils/100 WBC Manual cnt (Bld)Ordered By: Mikel Root on 92-72-3322Pafmpybgw/100 WBC (Bld)Basophils/100 leukocytes in Blood by Manual count0Cincinnati Shriners HospitalBasophils/100 leukocytes in Blood by Manual countOrdered By: Mikel Root on 90-58-7431Bosgrmpnd/100 WBC (Bld)1 %Normal022 Holmes StreetComment on above:Performed By: #### BMP, DIFF CBC ####[facility] [place] [address] USACalcium [Mass/volume] in Serum or PlasmaOrdered By: Mikel Root on 14-04-1740Yruonww [Mass/Vol]8.7 mg/dLNormal8.6-10.3FCincinnati Shriners HospitalComment on above:Result Comment: PERFORMED BY: [facility] [address] [place] [address] PATHOLOGIST [employer] SUPERVISOR AIRAM MAST M.D.Performed By: #### BMP, DIFF CBC ####[facility] [address] [place] [address] USACalcium [Mass/Vol]Calcium [Mass/volume] in Serum or Plasma8.6-10.3FCincinnati Shriners HospitalCarbon dioxide, total [Moles/volume] in Serum or PlasmaOrdered By: Mikel Root on 00-83-7827DN4 [Moles/Vol]26.6 mmol/TPsbhhx61.0-31.0[facility] Medical CenterComment on above:Performed By: #### BMP, DIFF CBC ####[address] [address] USACO2 [Moles/Vol]Carbon dioxide, total [Moles/volume] in Serum or Xcqkng91.0-31.0 [facility] Medical CenterChloride [Moles/volume] in Serum or Plasma Ordered By: Mikel Root on 07-10-3159Ehrlxpcg [Moles/Vol]95 mmol/L Gpw24-830FttuwgsndUniversity Hospitals Tripoint Medical CenterComment on above:Performed By: #### BMP, DIFF CBC ####[address] [address] USAChloride [Moles/Vol]Chloride [Moles/volume] in Serum or TfafvnAuo19-297 [facility] Medical CenterCreatinine [Mass/volume] in Serum or Plasma Ordered By: Mikel Root on 99-98-3759Wsjfnwgfmi [Mass/Vol]1.06 mg/dL Normal0.70-1.30[facility] Medical CenterComment on above:Performed By: #### BMP, DIFF CBC ####[place] [address] [place] [address] USACreatinine [Mass/Vol]Creatinine [Mass/volume] in Serum or Plasma 0.70-1.30[facility] Medical CenterDiff and CBCon 35-47-8565Krozyovayqot SlightGadsden Community Hospital Physician GroupComment on above:Performed By: #### BMP, DIFF CBC ####[address] [address] USAHypochromasiaMarkedGadsden Community Hospital Physician GroupComment on above: Performed By: #### BMP, DIFF CBC ####[address] [address] USAMean Corpuscular HGB Conc32.2 g/dLLow32.5-35.6The [facility] Physician GroupComment on above:Performed By: #### BMP, DIFF CBC ####[address] [address] [place] MicrocytosisSAnson Community Hospital Physician GroupComment on above:Performed By: #### BMP, DIFF CBC ####[address] [address] USAPlatelet EstimateNormalNormAdventHealth Tampa Physician GroupComment on above:Performed By: #### BMP, DIFF CBC ####[address] [address] USAPlatelet Morphology NormalNoBaptist Health Homestead Hospital Physician GroupComment on above:Result Comment: PERFORMED BY: [facility] [address] [place] [address] PATHOLOGIST [employer] SUPERVISOR AIRAM MAST M.D.Performed By: #### BMP, DIFF CBC ####[address] [address] USAPoikilocytosisModerateGadsden Community Hospital Physician GroupComment on above:Performed By: #### BMP, DIFF CBC ####[address] [address] [place] PolychromasiaSAnson Community Hospital Physician GroupComment on above:Performed By: #### BMP, DIFF CBC ####[facility] [address] [place] [address] USASchistocytesAdventHealth Physician GroupComment on above:Performed By: #### BMP, DIFF CBC ####[facility] [address] [place] [address] USATarget CellsAdventHealth Physician GroupComment on above:Performed By: #### BMP, DIFF CBC ####[facility] [address] [place] [address] USAECG 12 lead ECGon 36-31-4093ACE 12 lead ECGVETERANS HEALTH ADMINISTRATION Main [place] [address] [place] [address] Electrocardiograph Report Signed Patient: Manolo Roche MR#: [id number] : 1935 Acct:[id number] Age/Sex: 89 / M ADM Date: 05/16/24 Loc: Room: Type: [facility] Attending Dr: Abdulaziz Root MD Ordering [...] have occurred Confirmed by CONRAD OGLESBY [facility] ([id number]) on 05/16/2024 2:20:20 PM Referred By: Electronically Signed By: HARSH MARTINES MD FAC Transcribed By: MUS Signed By Harsh Martines MD, FACC 05/16/24 1420[facility] Physician GroupEosinophils Auto (Bld) [#/Vol] Ordered By: Mikel Root on 89-01-9037Mlkpfwniwaf (Bld) [#/Vol]N/A [facility] Medical CenterEosinophils (Bld) [#/Vol]Automated eosinophil countUniversity Hospitals Tripoint Medical CenterEosinophils/100 WBC Auto (Bld)Ordered By: Mikel Root on 79-84-4621Ljoysmxpbjt/100 WBC (Bld)N/AFCincinnati Shriners HospitalEosinophils/100 WBC (Bld)Automated eosinophil %[facility] Medical CenterEosinophils/100 WBC Manual cnt (Bld)Ordered By: Mikel Root on 09-44-1040Uxazlfiysro/100 WBC (Bld)Eosinophils/100 leukocytes in Blood by Manual count1-[facility] Eosinophils/100 leukocytes in Blood by Manual countOrdered By: Mikel Root on 85-07-9084Jyicudacvvo/100 WBC (Bld)2 %Normal1-[facility] Shriners HospitalComment on above:Performed By: #### BMP, DIFF CBC ####[facility] [address] [place] [id number] USAErythrocyte distribution width Auto (RBC) [Ratio]Ordered By: Mikel Root on 32-85-9422Smdxanexnsx distribution width (RBC) [Ratio]Erythrocyte distribution width [Ratio] by Automated prsqiJjwk99.0-14.8[facility] Erythrocyte distribution width [Ratio] by Automated countOrdered By: Mikel Root on 96-49-9890Prsalwjlfly distribution width (RBC) [Ratio]21.2 %High12.0-14.8[facility] Medical CenterComment on above:Performed By: #### BMP, DIFF CBC ####[facility] [address] [place], [place] [address] USAErythrocyte morphology finding [Identifier] in BloodOrdered By: Mikel Root on 28-24-5585RPK morphology finding Nom (Bld)RBC morphology [facility] Medical CenterErythrocytes [#/volume] in Blood by Automated countOrdered By: Mikel Root on 99-67-0758VTM (Bld) [#/Vol]4.81 10*6/uLNormal3.90-5.60[facility] Medical CenterComment on above: Performed By: #### BMP, DIFF CBC ####[facility] [address] [place] [address] USAGlucose [Mass/volume] in Serum or PlasmaOrdered By: Mikel Root on 28-37-4306Weagbck [Mass/Vol]649 mg/dLOff scale high 70-100[facility] Medical CenterComment on above:Critical Result Called to [...] reference rangePerformed By: #### BMP, DIFF CBC ####[facility] [address] [place] [address] USAGlucose [Mass/Vol] Glucose [Mass/volume] in Serum or PlasmaCritically xrxj90-636WkwzqivwgUniversity Hospitals Tripoint Medical CenterComment on above:Critical Result Called to and read back by: DREW BUITRAGO at: 05/16/2024 13:51 by:TANIAADA recommended reference rangeRandom Glucose Reference Range is dependent on time and content of last meal. Glucose of more than 200 mg/dL in a nonstressed, ambulatory subject supports the diagnosis of Diabetes Mellitus.Hematocrit Auto (Bld) [Volume fraction]Ordered By: Mikel Root on 49-09-8027Rranhxkupv (Bld) [Volume fraction]Hematocrit [Volume Fraction] of Blood by Automated veureFhu04.8-50.0[facility] Medical CenterHematocrit [Volume Fraction] of Blood by Automated countOrdered By: Mikel Root on 80-36-4685Ciieqzdlbr (Bld) [Volume fraction]38.1 %Low38.8-50.0[facility] Medical CenterComment on above:Performed By: #### BMP, DIFF CBC ####[facility] [address] [place] [address] USAHemoglobin [Mass/volume] in BloodOrdered By: Mikel Root on 46-05-5471Jfkdgbbxwt (Bld) [Mass/Vol]12.3 g/dLLow13.0-17.0[facility] Medical CenterComment on above:Performed By: #### BMP, DIFF CBC ####[facility] [address] [place] [address] USAHemoglobin (Bld) [Mass/Vol]Hemoglobin [Mass/volume] in BnrhjSyn20.0-17.0[facility] Medical CenterHypochromia LM Ql (Bld)Ordered By: Mikel Root on 48-73-3466Pgticgnkgwx Ql (Bld)MarkedUniversity Hospitals Tripoint Medical CenterHypochromia Ql (Bld)Hypochromia [Presence] in Blood by Light microscopyUniversity Hospitals Tripoint Medical CenterLeukocytes [#/volume] corrected for nucleated erythrocytes in Blood by Automated counOrdered By: Mikel Root on 49-95-8846GOX corrected for nucl RBC Auto (Bld) [#/Vol]5.0 10*3/uL4.1-10.5FCincinnati Shriners HospitalWBC corrected for nucl RBC Auto (Bld) [#/Vol]Leukocytes [#/volume] corrected for nucleated erythrocytes in Blood by Automated coun4.1-10.5 [facility] Medical CenterLeukocytes [#/volume] in Blood by Automated countOrdered By: Mikel Root on 40-04-9763HUR (Bld) [#/Vol]5.0 10*3/uLNormal4.1-10.5FCincinnati Shriners HospitalComment on above:Performed By: #### BMP, DIFF CBC ####[facility] [address] [place] [address] USALymphocytes Auto (Bld) [#/Vol]Ordered By: Mikel Root on 69-15-8139Trdrotcanlr (Bld) [#/Vol]N/AFCincinnati Shriners HospitalLymphocytes (Bld) [#/Vol]Lymphocytes [#/volume] in Blood by Automated countUniversity Hospitals Tripoint Medical CenterLymphocytes/100 WBC Auto (Bld) Ordered By: Mikel Root on 60-79-7965Ryyxyvwvwtw/100 WBC (Bld)N/A [facility] Medical CenterLymphocytes/100 WBC (Bld)Lymphocytes/100 leukocytes in Blood by Automated countUniversity Hospitals Tripoint Medical Center Lymphocytes/100 WBC Manual cnt (Bld)Ordered By: Mikel Root on 56-34-2071Hkxduexdnxm/100 WBC (Bld)Lymphocytes/100 leukocytes in Blood by Manual -35TdulltjfeUniversity Hospitals Tripoint Medical CenterLymphocytes/100 leukocytes in Blood by Manual countOrdered By: Mikel Root on 33-20-0726Jopnokredca/100 WBC (Bld)23 %Iixgww36-19MavvhdiarUniversity Hospitals Tripoint Medical CenterComment on above: Performed By: #### BMP, DIFF CBC ####[facility] [address] [place] [address] [facility] Auto (RBC) [Entitic mass]Ordered By: Mikel Root on 69-36-7080AYA (RBC) [Entitic mass]MCH [Entitic mass] by Automated mqxogTbj30.5-35.2FC[facility] [Entitic mass] by Automated countOrdered By: Mikel Root on 44-01-3607VTQ (RBC) [Entitic mass]25.5 pgLow27.5-35.2FCincinnati Shriners HospitalComment on above:Performed By: #### BMP, DIFF CBC ####[facility] [address] [place] [address] [facility] Auto (RBC) [Mass/Vol]Ordered By: Mikel Root on 06-72-5394OZIH (RBC) [Mass/Vol]32.2 g/dLLow32.5-35.6 [facility] HospitalHC (RBC) [Mass/Vol]MCHC [Mass/volume] by Automated ahqfiVpt41.5-35.6FSelect Medical Specialty Hospital - CantonV Auto (RBC) [Entitic vol]Ordered By: Mikel Root on 23-04-8399FBI (RBC) [Entitic vol]MCV [Entitic volume] by Automated lthafKzy27.5-101C[facility] Clinic [facility]on HospitalV [Entitic volume] by Automated countOrdered By: Mikel Root on 79-49-4668LLL (RBC) [Entitic vol]79.2 fLLow83.5-101[facility] CenterComment on above:Performed By: #### BMP, DIFF CBC ####[place] [address] USAManual blood segmented neutrophils/100 leukocytesOrdered By: Mikel Root on 38-36-5777Ggcsehrzp neutrophils/100 WBC (Bld)67 %Fhdnek62-32TlaawzunuUniversity Hospitals Tripoint Medical CenterComment on above:Performed By: #### BMP, DIFF CBC ####[place] [address] USAMicrocytes LM Ql (Bld)Ordered By: Mikel Root on 62-43-7152Ixgffzrqyf Ql (Bld)Slight [facility] Medical CenterMicrocytes Ql (Bld)Microcytes [Presence] in Blood by Light microscopyUniversity Hospitals Tripoint Medical CenterMonocytes Auto (Bld) [#/Vol]Ordered By: Mikel Root on 29-01-0526Dcatwgack (Bld) [#/Vol] N/AFCincinnati Shriners HospitalMonocytes (Bld) [#/Vol]Automated blood monocyte countUniversity Hospitals Tripoint Medical CenterMonocytes/100 WBC Auto (Bld) Ordered By: Mikel Root on 01-95-7056Eguectcjt/100 WBC (Bld)N/A [facility] Medical CenterMonocytes/100 WBC (Bld)Automated monocyte % [facility] CenterMonocytes/100 WBC Manual cnt (Bld)Ordered By: Mikel Root on 26-63-3787Kwfsvxtli/100 WBC (Bld)Monocytes/100 leukocytes in Blood by Manual count2-[facility] Monocytes/100 leukocytes in Blood by Manual countOrdered By: Mikel Root on 88-92-7511Espfohggs/100 WBC (Bld)8 %Normal2-[facility] Medical CenterComment on above:Performed By: #### BMP, DIFF CBC ####[facility] [place] [address] USANeutrophils Auto (Bld) [#/Vol]Ordered By: Mikel Root on 13-45-0253Ulzhmwwihgy (Bld) [#/Vol]N/[facility] Samaritan HospitalNeutrophils (Bld) [#/Vol]Neutrophils [#/volume] in Blood by Automated countUniversity Hospitals Tripoint Medical Center Neutrophils/100 WBC Auto (Bld)Ordered By: Mikel Root on 05-16-2024 Neutrophils/100 WBC (Bld)N/[facility]aritan HospitalNeutrophils/100 WBC (Bld)Automated neutrophil %[facility] Medical CenterNo Panel InformationOrdered By: Mikel Root on 56-36-1760Qgluddolf GFR (CKD-EPI)> 60.0 mL/MinUniversity Hospitals Tripoint Medical CenterPharmacy Creatinine Clearance (ChemN/[facility] Samaritan HospitalNucleated erythrocytes [Presence] in Blood by Automated countOrdered By: Mikel Root on 30-73-3886Ynbyssalu RBC Auto Ql (Bld)N/[facility] Nucleated RBC Auto Ql (Bld)Nucleated erythrocytes [Presence] in Blood by Automated countUniversity Hospitals Tripoint Medical CenterPlatelet adequacy [Presence] in Blood by Light microscopyOrdered By: Mikel Root on 05-16-2024 Platelets LM Ql (Bld)NormalNoJoint Township District Memorial HospitalPlatelets LM Ql (Bld)Platelet adequacy [Presence] in Blood by Light microscopyNoJoint Township District Memorial HospitalPlatelet mean volume Auto (Bld) [Entitic vol]Ordered By: Mikel Root on 76-89-2096Qmszgjtu mean volume (Bld) [Entitic vol] Platelet mean volume [Entitic volume] in Blood by Automated countHigh6.6-10.1 [facility] Tri[facility] Medical CenterPlatelet mean volume [Entitic volume] in Blood by Automated countOrdered By: Mikel Root on 68-01-9286Umylmxze mean volume (Bld) [Entitic vol]11.3 fLHigh6.6-10.1FCincinnati Shriners Hospital Comment on above:Result Comment: PERFORMED BY: [facility] [address], [place] [id number] PATHOLOGIST [employer] SUPERVIS[employer] AIRAM MAST M.D.Performed By: #### BMP, DIFF CBC ####[facility] [place] [id number] USAPlatelet morphology finding [Identifier] in BloodOrdered By: Mikel Root on 20-07-9743Qmrrwgvq morphology finding Nom (Bld)NormalGalion Community Hospital Platelet morphology finding Nom (Bld)Platelet morphology finding [Identifier] in BloodNoJoint Township District Memorial HospitalPlatelets Auto (Bld) [#/Vol]Ordered By: Mikel Root on 44-43-8720Fjgbledun (Bld) [#/Vol]Platelets [#/volume] in Blood by Automated ldkfa277-152Ysrez[address] Platelets [#/volume] in Blood by Automated countOrdered By: Mikel Root on 81-06-1777Rhmnsobcr (Bld) [#/Vol]249 10*3/bDOmoeje033-925WrqhklltlUniversity Hospitals Tripoint Medical CenterComment on above:Performed By: #### BMP, DIFF CBC ####[facility] [id number] [place] [id number] [facility] Poikilocytosis [Presence] in Blood by Light microscopyOrdered By: Mikel Root on 19-41-8473Iwfwifkvojooat LM Ql (Bld)ModerateUniversity Hospitals Tripoint Medical CenterPoikilocytosis LM Ql (Bld)Poikilocytosis [Presence] in Blood by Light microscopyUniversity Hospitals Tripoint Medical CenterPolychromasia [Presence] in Blood by Light microscopyOrdered By: Mikel Root on 05-16-2024 Polychromasia LM Ql (Bld)SlightUniversity Hospitals Tripoint Medical CenterPolychromasia LM Ql (Bld)Polychromasia [Presence] in Blood by Light microscopyUniversity Hospitals Tripoint Medical CenterPotassium [Moles/volume] in Serum or PlasmaOrdered By: Mikel Root on 50-22-7249Zdssksakc [Moles/Vol]5.4 mmol/LHigh3.5-5.1 [facility] Tripoint Medical CenterComment on above:Performed By: #### BMP, DIFF CBC ####[facility] Potassium [Moles/Vol]Potassium [Moles/volume] in Serum or PlasmaHigh3.5-5.1 [facility] Medical CenterRBC Auto (Bld) [#/Vol]Ordered By: Mikel Root on 03-09-1042VHE (Bld) [#/Vol]Erythrocytes [#/volume] in Blood by Automated count3.90-5.60[facility] Medical CenterRBC morphologyOrdered By: Mikel Root on 01-12-1746PUP morphology finding Nom (Bld)N/A [facility] Memorial Hospitalchistocytes [Presence] in Blood by Light microscopyOrdered By: Mikel Root on 26-02-0467Kwmofeyusrbj LM Ql (Bld)[facility] Centerchistocytes LM Ql (Bld)Schistocytes [Presence] in Blood by Light microscopyUniversity Hospitals Tripoint Medical Center Segmented neutrophils/100 WBC Manual cnt (Bld)Ordered By: Mikel Root on 31-11-3195Vwqecurbx neutrophils/100 WBC (Bld)Manual blood segmented neutrophils/100 csxitxytgf41-49ZuhzakyjaGrand Lake Joint Township District Memorial Hospitalerum or plasma anion gap determinationOrdered By: Mikel Root on 78-67-3855Rqrik gap [Moles/Vol]11.8 mmol/LNormal6.0-15.0[facility] Tripoint Medical CenterComment on above:Performed By: #### BMP, DIFF CBC ####[facility] [address] [place] [address] USAAnion gap [Moles/Vol] Serum or plasma anion gap determination6.0-15.0[facility] Sodium [Moles/volume] in Serum or PlasmaOrdered By: Mikel Root on 55-29-7914Zupkif [Moles/Vol]128 mmol/UTep786-843JujykyhipUniversity Hospitals Tripoint Medical CenterComment on above:Performed By: #### BMP, DIFF CBC ####[address] [address] USASodium [Moles/Vol]Sodium [Moles/volume] in Serum or CsvwowMpg385-631EdgjtlgavUniversity Hospitals Tripoint Medical Center Target cellsOrdered By: Mikel Root on 13-04-5533Zwirww cells LM Ql (Bld)SlightUniversity Hospitals Tripoint Medical CenterTarget cells [Presence] in Blood by Light microscopyOrdered By: Mikel Root on 67-86-4271Mbskvr cells LM Ql (Bld)Target cellsUniversity Hospitals Tripoint Medical CenterUrea nitrogen [Mass/volume] in Serum or PlasmaOrdered By: Mikel Root on 31-75-9652Xvmv nitrogen [Mass/Vol]21 mg/dLNormal7-25[facility] Medical CenterComment on above:Performed By: #### BMP, DIFF CBC ####[facility] [address] [place] [address] [facility] CENTERUrea nitrogen [Mass/Vol]Urea nitrogen [Mass/volume] in Serum or Plasma02-02[facility] WBC Auto (Bld) [#/Vol]Ordered By: Mikel Root on 02-88-8733SXT (Bld) [#/Vol]Leukocytes [#/volume] in Blood by Automated count4.1-10.5FCincinnati Shriners Hospital36on [id number]. Chirag Merritt's recommendation for an EGD was [...] initially recommended. Best regards, Dr. Taylor of [facility]36on [id number] from Dr. Marie Tejeda's office (Internal Medicine) called to make sure that a message had been received to Dr. Beard regarding this patient and concerns Dr. Tejeda has regarding the patient having an EGD to confirm resolution of H. Pylori. This narrative writer could not find any message in chart or in family mediator, so this message was created. The [...] A note will be sent to the java developer consultant to discuss the possibility of using a stool study instead of a biopsy to avoid disturbing the scarred area. Please advise and respond to Dr. Tejeda through this telephone call note or via a letter, as to what Dr. Beard's recommendation is regarding the above inquiry. Thank you.[facility] Medical CenterTelephoneon [id number] Manolo Roche 1935 M Date Provider Department Center 04/26/2024 095[address]-OTKVOKTIM CAMPBELL MP [facility] No family history on fileNormalUniversity of Columbus Community HospitalHbA1c (Bld) [Mass fraction]on 28-88-7094SAXC HealthcareLaboratory - Hematology and Cell countson 01-90-3456CbP3y (Bld) [Mass fraction]9.8 %NOMS HealthcareOffice Visiton 59-04-7412Fvhnth-up [id number] Manolo Roche 1935 M Date Provider Department Center 04/05/2024 Nadeen-PATRICK BEARD [facility] No family history on file Level of Service:68750 [place] OFFICE/OUTPATIENT NEW LOW MDM 30 MINUTES (GC) Reason for Visit and Comments: gastrointestinal ulcer [Other] - Pt says he's supposed to receive a procedure.[facility] Medical CenterECH echo transthoracicon 30-07-0564FVG echo transthoracicVETERANS HEALTH AD[place] [address] Echocardiogram Signed Patient: Manolo Roche MR#: [id number] : 1935 Acct:[id number] Age/Sex: 88 / M ADM Date: 03/09/24 Loc: Room: Type: [facility] Attending Dr: Anat Perez MD Ordering Provider: Anat Perez MD Date of Service: 03/09/24 ECH/ECH echo transthoracic: I25.10 - Atherosclerotic heart disease of [place] coronary... Copies to: Anat Perez MD Manolo Westfall Patient Location: : 1935 Gender: Male (MM/DD/YYYY) Age: 88 Years Ordering Physician: Anat Perez Height: 70 in Weight: 140.875 lb Performed By: MARK Hearn BSA: 1.80 m2 BP: 144 / 83 mmHg HR: 53 bpm Reason For Study: I25.10 - Atherosclerotic heart disease of [place] coronary... History: HTN, DM, Former Smoker, CAD, [...] 03/09/244 Signed By: Anat Perez MD 03/09/24 2353[facility] Erythrocyte distribution width Auto (RBC) [Ratio]Ordered By: Warren Gross on 21-44-6960Jjkoswkmyus distribution width (RBC) [Ratio]20.0 %High12.0-14.8 [facility] Medical CenterFerritin [Mass/volume] in Serum or Plasma Ordered By: Anat Perez on 60-32-4600Msfelhir [Mass/Vol]19.8 ng/mLLow 23.9-336.2FCincinnati Shriners HospitalHematocrit Auto (Bld) [Volume fraction]Ordered By: Warren Gross on 63-25-5841Adhnvhvjey (Bld) [Volume fraction]26.7 %Low38.8-50.0[facility] Medical CenterHemoglobin [Mass/volume] in BloodOrdered By: Warren Gross on 63-60-4830Aauxcayjzk (Bld) [Mass/Vol]8.8 g/dLLow13.0-17.0[facility] Medical CenterIron [Mass/volume] in Serum or PlasmaOrdered By: Anat Perez on 59-97-4861Mxjn [Mass/Vol]20 ug/cVSqw95-735UndbhowcfUniversity Hospitals Tripoint Medical CenterIron binding capacity [Mass/volume] in Serum or PlasmaOrdered By: Anat Perez on 02-16-2024 Iron binding capacity [Mass/Vol]402 ug/jN837-918XrjzdlliiUniversity Hospitals Tripoint Medical CenterIron saturation [Mass Fraction] in Serum or PlasmaOrdered By: Anat Perez on 90-98-1549Pxcz saturation [Mass fraction]5.0 %Xwp25-73UvvgihfqxUniversity Hospitals Tripoint Medical CenterLeukocytes [#/volume] corrected for nucleated erythrocytes in Blood by Automated counOrdered By: Warren Gross on 45-98-0036XTH corrected for nucl RBC Auto (Bld) [#/Vol]5.8 10*3/uL4.1-10.5FCleveland [facility] Auto (RBC) [Entitic mass]Ordered By: Warren Gross on 27-32-8044VSW (RBC) [Entitic mass]26.8 pgLow27.5-35.2FSelect Medical Specialty Hospital - CantonHC Auto (RBC) [Mass/Vol]Ordered By: Warren Gross on 10-79-3439MWGW (RBC) [Mass/Vol]32.9 g/dL32.5-35.6FSelect Medical Specialty Hospital - CantonV Auto (RBC) [Entitic vol]Ordered By: Warren Gross on 87-04-8287HLV (RBC) [Entitic vol]81.4 fLLow83.5-101[facility] CenterPlatelet mean volume Auto (Bld) [Entitic vol]Ordered By: Warren Gross on 93-80-4799Voebiphl mean volume (Bld) [Entitic vol]10.3 fLHigh6.6-10.1FCincinnati Shriners HospitalPlatelets Auto (Bld) [#/Vol]Ordered By: Warren Gross on 80-07-0536Ndpkautxh (Bld) [#/Vol]304 10*3/vX068-954FapwnuubcUniversity Hospitals Tripoint Medical CenterRBC Auto (Bld) [#/Vol]Ordered By: Warren Gross on 53-54-7439VEF (Bld) [#/Vol]3.28 10*6/uLLow3.90-5.60[facility] Medical CenterTransferrin [Mass/volume] in Serum or PlasmaOrdered By: Anat Perze on 92-91-7283Fijjlbjsixz [Mass/Vol]287 mg/qQ957-157JyrcctdswUniversity Hospitals Tripoint Medical CenterErythrocyte distribution width Auto (RBC) [Ratio]Ordered By: Warren Gross on 16-53-1536Wezelvnpdfk distribution width (RBC) [Ratio]19.9 % High12.0-14.8[facility] Medical CenterHematocrit Auto (Bld) [Volume fraction]Ordered By: Warren Gross on 20-71-4122Ioyxcytmli (Bld) [Volume fraction]26.4 %Low38.8-50.0[facility] Medical CenterHemoglobin [Mass/volume] in BloodOrdered By: Warren Gross on 10-49-1259Ufzacepbjh (Bld) [Mass/Vol]8.7 g/dLLow13.0-17.0[facility] Medical CenterLeukocytes [#/volume] corrected for nucleated erythrocytes in Blood by Automated coun Ordered By: Warren Gross on 09-61-1327GLR corrected for nucl RBC Auto (Bld) [#/Vol]7.1 10*3/uL4.1-10.5FCleveland Clinic [facility] Hospital Auto (RBC) [Entitic mass]Ordered By: Warren Gross on 49-70-8909BII (RBC) [Entitic mass]26.8 pgLow27.5-35.2FSelect Medical Specialty Hospital - Akron Auto (RBC) [Mass/Vol]Ordered By: Warren Gross on 35-58-2144IOGM (RBC) [Mass/Vol]32.9 g/dL32.5-35.6FCincinnati Shriners HospitalMCV Auto (RBC) [Entitic vol]Ordered By: Warren Gross on 35-20-6061PNK (RBC) [Entitic vol]81.6 fLLow83.5-101[facility] Medical CenterPlatelet mean volume Auto (Bld) [Entitic vol]Ordered By: Warren Gross on 33-99-4759Getxxdtb mean volume (Bld) [Entitic vol]9.6 fL6.6-10.1FCincinnati Shriners HospitalPlatelets Auto (Bld) [#/Vol]Ordered By: Warren Gross on 30-54-4771Fffywgtjf (Bld) [#/Vol]278 10*3/qD818-132CkctbzmbwUniversity Hospitals Tripoint Medical CenterRBC Auto (Bld) [#/Vol]Ordered By: Warren Gross on 14-84-2725XYQ (Bld) [#/Vol]3.23 10*6/uLLow3.90-5.60[facility] Medical CenterErythrocyte distribution width Auto (RBC) [Ratio]Ordered By: Warren Gross on 02-11-2024 Erythrocyte distribution width (RBC) [Ratio]20.4 %High12.0-14.8[facility] Medical CenterHematocrit Auto (Bld) [Volume fraction]Ordered By: Warren Gross on 59-25-1283Iabyhdxvjg (Bld) [Volume fraction]26.8 %Low38.8-50.0 [facility] Medical CenterHemoglobin [Mass/volume] in BloodOrdered By: Warren Gross on 66-85-5790Qjkzwjidkb (Bld) [Mass/Vol]8.8 g/dLLow13.0-17.0 [facility] Medical CenterLeukocytes [#/volume] corrected for nucleated erythrocytes in Blood by Automated counOrdered By: Warren Gross on 44-54-1220ZEA corrected for nucl RBC Auto (Bld) [#/Vol]6.4 10*3/uL4.1-10.5FCincinnati Shriners HospitalMCH Auto (RBC) [Entitic mass]Ordered By: Warren Gross on 22-71-8645APD (RBC) [Entitic mass]26.8 pgLow27.5-35.2FCincinnati Shriners HospitalMC Auto (RBC) [Mass/Vol]Ordered By: Warren Gross on 78-27-1962CQSY (RBC) [Mass/Vol]32.8 g/dL32.5-35.6FCincinnati Shriners HospitalMCV Auto (RBC) [Entitic vol]Ordered By: Warren Gross on 59-32-5228EOL (RBC) [Entitic vol]81.9 fLLow83.5-101[facility] CenterPlatelet mean volume Auto (Bld) [Entitic vol]Ordered By: Warren Gross on 32-26-7664Ayrutqpf mean volume (Bld) [Entitic vol]10.2 fLHigh6.6-10.1FCincinnati Shriners HospitalPlatelets Auto (Bld) [#/Vol]Ordered By: Warren Gross on 87-64-4221Bwwxyftyy (Bld) [#/Vol]228 10*3/jY129-968CdvpyenhuUniversity Hospitals Tripoint Medical CenterRBC Auto (Bld) [#/Vol]Ordered By: Warren Gross on 16-08-8841EYP (Bld) [#/Vol]3.27 10*6/uLLow3.90-5.60[facility] Medical CenterBasophils Auto (Bld) [#/Vol]Ordered By: Sushant Cordon on 83-88-9751Ftrrbvwmu (Bld) [#/Vol]0.1 10*3/uL0.0-0.2FCincinnati Shriners HospitalBasophils/100 WBC Auto (Bld)Ordered By: Sushant Cordon on 44-86-6123Eagjqalow/100 WBC (Bld)1.3 %.[facility] Medical CenterCalcium [Mass/volume] in Serum or PlasmaOrdered By: Sushant Cordon on 54-54-6395Moqexhy [Mass/Vol]8.1 mg/dLLow8.6-10.3FCincinnati Shriners HospitalCarbon dioxide, total [Moles/volume] in Serum or PlasmaOrdered By: Sushant Cordon on 26-59-5830YP1 [Moles/Vol]29.6 mmol/L21.0-31.0[facility] Medical CenterChloride [Moles/volume] in Serum or PlasmaOrdered By: Sushant Cordon on 63-70-0384Mgphujhj [Moles/Vol]102 mmol/C91-742NlltedhnoUniversity Hospitals Tripoint Medical CenterCreatinine [Mass/volume] in Serum or PlasmaOrdered By: Sushant Cordon on 05-38-0307Phhijyhine [Mass/Vol]0.82 mg/dL0.70-1.30 [facility] CenterEosinophils Auto (Bld) [#/Vol]Ordered By: Sushant Cordon on 97-17-7799Ujjtgasvkyo (Bld) [#/Vol]0.4 10*3/uL0.0-0.45 [facility] CenterEosinophils/100 WBC Auto (Bld)Ordered By: Sushant Cordon on 03-73-2790Vqzdhqeijqi/100 WBC (Bld)7.1 %.[facility] CenterErythrocyte distribution width Auto (RBC) [Ratio]Ordered By: Sushant Cordon on 73-14-7603Mklosxlcezu distribution width (RBC) [Ratio]19.3 %High12.0-14.8[facility] Medical CenterGlucose Glucometer (BldC) [Mass/Vol]Ordered By: Warren Gross on 26-85-9617Qtydtrm [Mass/Vol]382 mg/dLUniversity Hospitals Tripoint Medical CenterComment on above:Random Glucose Reference Range is dependent on time and content of last meal. Glucose of more than 200 mg/dL in a nonstressed, ambulatory subject supports the diagnosis of Diabetes Mellitus.Glucose [Mass/volume] in Serum or PlasmaOrdered By: Sushant Cordon on 29-89-1253Wqzhjux [Mass/Vol]320 mg/oWIsou68-583RrvdtneiqUniversity Hospitals Tripoint Medical CenterComment on above:Delta: 171 on 02/07/24-620ADA recommended reference rangeRandom Glucose Reference Range is dependent on time and content of last meal. Glucose of more than 200 mg/dL in a nonstressed, ambulatory subj ect supports the diagnosis of Diabetes Mellitus.Hematocrit Auto (Bld) [Volume fraction]Ordered By: Sushant Cordon on 71-78-3297Amvbdwfzyo (Bld) [Volume fraction]25.8 %Low38.8-50.0[facility] Medical CenterHemoglobin [Mass/volume] in BloodOrdered By: Sushant Cordon on 74-25-8930Gjmlgxhkyc (Bld) [Mass/Vol]8.8 g/dLLow13.0-17.0[facility] Medical CenterLeukocytes [#/volume] corrected for nucleated erythrocytes in Blood by Automated coun Ordered By: Sushant Cordon on 47-47-7214PNE corrected for nucl RBC Auto (Bld) [#/Vol]5.7 10*3/uL4.1-10.5FCincinnati Shriners HospitalLymphocytes Auto (Bld) [#/Vol]Ordered By: Sushant Cordon on 07-71-4524Spcmkolknmo (Bld) [#/Vol]1.3 10*3/uL1.00-4.8[facility] Medical CenterLymphocytes/100 WBC Auto (Bld)Ordered By: Sushant Cordon on 62-55-6388Kivncdsrqhj/100 WBC (Bld)22.3 %.[facility] Auto (RBC) [Entitic mass] Ordered By: Sushant Cordon on 10-26-9659LET (RBC) [Entitic mass]27.1 pgLow 27.5-35.2FCincinnati Shriners HospitalMCHC Auto (RBC) [Mass/Vol]Ordered By: Sushant Cordon on 56-42-6698KILN (RBC) [Mass/Vol]33.9 g/dL32.5-35.6 [facility] CenterMCV Auto (RBC) [Entitic vol]Ordered By: Sushant Cordon on 58-75-7307MOO (RBC) [Entitic vol]79.9 fLLow83.5-101 [facility] Medical CenterMagnesium [Mass/volume] in Serum or Plasma Ordered By: Sushant Cordon on 53-79-2470Lovxzwyjr [Mass/Vol]1.8 mg/dLLow 1.9-2.7FCincinnati Shriners HospitalMonocytes Auto (Bld) [#/Vol]Ordered By: Sushant Cordon on 55-22-6745Yxsivlurl (Bld) [#/Vol]1.0 10*3/uLHigh0.0-0.8 [facility] CenterMonocytes/100 WBC Auto (Bld)Ordered By: Sushant Cordon on 34-62-9637Tlankeygt/100 WBC (Bld)17.6 %.[facility] Medical CenterNeutrophils Auto (Bld) [#/Vol]Ordered By: Sushant Cordon on 34-19-7416Byhbxxujtiu (Bld) [#/Vol]3.0 10*3/uL1.8-7.7FCincinnati Shriners HospitalNeutrophils/100 WBC Auto (Bld)Ordered By: Sushant Cordon on 08-02-3181Faxxotnlall/100 WBC (Bld)51.7 %.[facility] CenterNo Panel InformationOrdered By: Sushant Cordon on 02-08-2024 Estimated GFR (CKD-EPI)> 60.0 mL/MinUniversity Hospitals Tripoint Medical CenterPharmacy Creatinine Clearance (Chem58.45[facility] Medical CenterNucleated erythrocytes [Presence] in Blood by Automated countOrdered By: Sushant Cordon on 93-31-4753Lebizwifi RBC Auto Ql (Bld)0.2 /100{WBC}0-0.5FCincinnati Shriners HospitalPlatelet mean volume Auto (Bld) [Entitic vol]Ordered By: Sushant Cordon on 37-54-9979Kxpjvdab mean volume (Bld) [Entitic vol]11.2 fLHigh6.6-10.1FCincinnati Shriners HospitalPlatelets Auto (Bld) [#/Vol] Ordered By: Sushant Cordon on 28-85-4758Aokpfmtaf (Bld) [#/Vol]180 10*3/uL 150-450[facility] CenterPotassium [Moles/volume] in Serum or PlasmaOrdered By: Sushant Cordon on 88-43-4293Qrvneiztr [Moles/Vol]4.4 mmol/L3.5-5.1FCincinnati Shriners HospitalRBC Auto (Bld) [#/Vol]Ordered By: Sushant Cordon on 69-15-6346OPU (Bld) [#/Vol]3.23 10*6/uLLow3.90-5.60 [facility] Hospitalerum or plasma anion gap determinationOrdered By: Sushant Cordon on 24-19-2455Mrixq gap [Moles/Vol]7.8 mmol/L6.0-15.0 [facility] Hospitalodium [Moles/volume] in Serum or PlasmaOrdered By: Sushant Cordon on 98-13-1533Mfqmqj [Moles/Vol]135 mmol/AEgq799-474 [facility] CenterUrea nitrogen [Mass/volume] in Serum or Plasma Ordered By: Sushant Cordon on 68-50-1102Bwne nitrogen [Mass/Vol]24 mg/dL -[facility] Medical CenterWBC Auto (Bld) [#/Vol]Ordered By: Sushant Cordon on 00-62-4520TUU (Bld) [#/Vol]5.7 10*3/uL4.1-10.5FCincinnati Shriners HospitalNo Panel InformationOrdered By: Warren Gross on 61-48-5992Tbvznph Glucose #[address]/CentervilleBedside Glucose CommentSee commentUniversity Hospitals Tripoint Medical CenterComment on above:Glu2: Will Repeat TestAlanine aminotransferase [Enzymatic activity/volume] in Serum or PlasmaOrdered By: Sushant Cordon on 17-56-4961ZNU [Catalytic activity/Vol]12 U/L7-52[facility] Medical CenterAlbumin [Mass/volume] in Serum or Plasma by Bromocresol green (BCG) dye binding methoOrdered By: Sushant Cordon on 95-06-8530Iqtqkqe BCG dye [Mass/Vol]3.2 g/dLLow3.5-5.7FCincinnati Shriners HospitalAlkaline phosphatase [Enzymatic activity/volume] in Serum or PlasmaOrdered By: Sushant Cordon on 38-91-5956XUP [Catalytic activity/Vol]94 U/M30-807NpixkihukUniversity Hospitals Tripoint Medical CenterAspartate aminotransferase [Enzymatic activity/volume] in Serum or PlasmaOrdered By: Sushant Cordon on 53-18-0128XOG [Catalytic activity/Vol]15 U/V26-85PhjwptoqaUniversity Hospitals Tripoint Medical CenterBilirubin.direct [Mass/volume] in Serum or PlasmaOrdered By: Sushant Cordon on 02-06-2024 Bilirubin.direct [Mass/Vol]0.20 mg/dLHigh0.03-0.18FCincinnati Shriners HospitalBilirubin.total [Mass/volume] in Serum or PlasmaOrdered By: Sushant Cordon on 55-00-5523Orywqbalc [Mass/Vol]1.2 mg/dLHigh0.3-1.0[facility] Medical CenterGlobulin Calc (S) [Mass/Vol]Ordered By: Sushant Cordon on 49-99-0591Xmznxekn (S) [Mass/Vol]2.0 g/dLUniversity Hospitals Tripoint Medical CenterGlucose mean value [Mass/volume] in Blood Estimated from glycated hemoglobinOrdered By: Sushant Cordon on 37-42-0316Ymfzzrh glucose Estimated from glycated hemoglobin (Bld) [Mass/Vol]194 mg/dLUniversity Hospitals Tripoint Medical CenterHemoglobin A1c percentageOrdered By: Sushant Cordon on 43-40-4894PqI5g (Bld) [Mass fraction]8.4 %High4.3-5.6FCincinnati Shriners HospitalComment on above:Increased risk for diabetes: 5.7 - 6.4diabetes: >6.4glycemic control for adults with diabetes: <7.0No Panel Information Ordered By: Nayeli Jimenez on 01-23-8241Bjnhsyx Glucose #3 CommentFollow hypoglycemicUniversity Hospitals Tripoint Medical CenterProtein [Mass/volume] in Serum or PlasmaOrdered By: Sushant Cordon on 34-84-4485Tunjugm [Mass/Vol]5.2 g/dL Low6.4-8.9[facility] Hospitalerum or plasma albumin/globulin mass ratioOrdered By: Sushant Cordon on 32-85-1613Vbiwbjy/Globulin [Mass ratio]1.6 {ratio}[facility] Hospitalerum or plasma non- glucuronidated bilirubin measurement (mass/volume)Ordered By: Sushant Cordon on 86-38-4599Qtgydeaky.indirect [Mass/Vol]1.0 mg/dLUniversity Hospitals Tripoint Medical CenterTroponin I.cardiac [Mass/volume] in Serum or Plasma by Detection limit <= 0.01 ng/Ordered By: Sushant Cordon on 23-72-7574Mpkmxeyd I.cardiac DL <= 0.01 ng/mL [Mass/Vol]60.3 pg/mLHigh0.0-20.0[facility] CenterComment on above:Critical Result : Called to and read back by: PRAKASH YAP at: 02/06/2024 09:42:22 by:CYNTHIAVitamin D+Metabolites [Mass/volume] in Serum or PlasmaOrdered By: Sushant Cordon on 21-71-9246Ygbcxwq D+Metabolites [Mass/Vol]25.0 ng/fMJst86-826LcqpwpslhUniversity Hospitals Tripoint Medical Center Comment on above:VITAMIN D STATUS 25(OH)VITAMIN D RANGE (ng/mL) Deficient <20 Insufficient 20 to <39Gkhohcpcth58 to 100Reference: Batsheva MF,Arcadio NC, Ramy MCGEE, et al. Evaluation,treatment, and prevention of vitamin D deficiency; an Endocrine Society clinical practice guideline. JCEM. 2010; 96 (7):1911-30.Acanthocytes [Presence] in Blood by Light microscopyOrdered By: Paige Luther on 32-52-0284Uolghherznbq LM Ql (Bld)[facility] CenterActivated partial thromboplastin time (aPTT) in platelet poor plasma by coagulation aOrdered By: Paige Luther on 68-37-7822hSKR Coag (PPP) [Time]23.6 sLow25.1-36.5FCincinnati Shriners HospitalComment on above:A hematocrit value greater than 55% may lead to inaccurate results in coagulation testing. Patientshaving hematocrit values >55% require a special collection tube for coagulation studies. Please contact the laboratory at [phone] for redraw instructions.Alanine aminotransferase [Enzymatic activity/volume] in Serum or PlasmaOrdered By: Paige Luther on 48-97-1531JXW [Catalytic activity/Vol]15 U/L7-52[facility] CenterAlbumin [Mass/volume] in Serum or Plasma by Bromocresol green (BCG) dye binding methoOrdered By: Paige Luther on 91-84-9987Ozsprgx BCG dye [Mass/Vol]3.3 g/dLLow3.5-5.7FCincinnati Shriners HospitalAlkaline phosphatase [Enzymatic activity/volume] in Serum or PlasmaOrdered By: Paige Luther on 48-50-1823DUZ [Catalytic activity/Vol]104 U/C51-483ZztyzawymUniversity Hospitals Tripoint Medical CenterAnisocytosis LM Ql (Bld)Ordered By: Paige Luther on 07-99-9250Alzgwexlmldg Ql (Bld)ModerateUniversity Hospitals Tripoint Medical CenterAspartate aminotransferase [Enzymatic activity/volume] in Serum or PlasmaOrdered By: Paige Luther on 10-02-0874CJG [Catalytic activity/Vol]15 U/L 13-39[facility] CenterBasophils Auto (Bld) [#/Vol]Ordered By: Paige Luther on 33-03-0979Jyqonsita (Bld) [#/Vol]0.0 10*3/uL0.0-0.2FCincinnati Shriners HospitalBasophils/100 WBC Auto (Bld)Ordered By: Paige Luther on 86-25-0268Fvottxzdd/100 WBC (Bld)0.4 %.[facility] Bilirubin.direct [Mass/volume] in Serum or PlasmaOrdered By: Paige Luther on 23-92-2435Xymygqayk.direct [Mass/Vol]0.10 mg/dL0.03-0.18FCincinnati Shriners HospitalBilirubin.total [Mass/volume] in Serum or PlasmaOrdered By: Paige Luther on 15-43-7082Nmffnedil [Mass/Vol]0.5 mg/dL0.3-1.0[facility] CenterBurr cells [Presence] in Blood by Light microscopyOrdered By: Paige Luther on 49-10-4069Izbs cells LM Ql (Bld)SlightUniversity Hospitals Tripoint Medical CenterCalcium [Mass/volume] in Serum or PlasmaOrdered By: Paige Luther on 97-50-2993Rtyxyiy [Mass/Vol]8.6 mg/dL8.6-10.3FCincinnati Shriners HospitalCarbon dioxide, total [Moles/volume] in Serum or PlasmaOrdered By: Paige Luther on 55-82-5961TO4 [Moles/Vol]23.1 mmol/L21.0-31.0[facility] CenterChloride [Moles/volume] in Serum or PlasmaOrdered By: Paige Luther on 63-76-2954Hajcknzc [Moles/Vol]103 mmol/Q76-790JlklhavhnUniversity Hospitals Tripoint Medical CenterCreatine kinase [Enzymatic activity/volume] in Serum or Plasma Ordered By: Paige Luther on 08-57-4781FM [Catalytic activity/Vol]114 U/L30-223 [facility] CenterCreatinine [Mass/volume] in Serum or Plasma Ordered By: Paige Luther on 90-14-5081Bryaqitaoi [Mass/Vol]1.09 mg/dL0.70-1.30 [facility] CenterEosinophils Auto (Bld) [#/Vol]Ordered By: Paige Luther on 11-25-0284Kwcehugchdm (Bld) [#/Vol]0.0 10*3/uL0.0-0.45 [facility] CenterEosinophils/100 WBC Auto (Bld)Ordered By: Pagie Luther on 71-22-5190Ovwthujwwiy/100 WBC (Bld)0.2 %.[facility] CenterErythrocyte distribution width Auto (RBC) [Ratio]Ordered By: Paige Luther on 21-10-4098Yansucbgygn distribution width (RBC) [Ratio]20.3 % High12.0-14.8[facility] CenterGlobulin Calc (S) [Mass/Vol] Ordered By: Paige Luther on 11-25-9280Bbpjjnhf (S) [Mass/Vol]2.4 g/dLUniversity Hospitals Tripoint Medical CenterGlucose [Mass/volume] in Serum or PlasmaOrdered By: Paige Luther on 00-72-9263Htfgufo [Mass/Vol]158 mg/iTLiyf51-590DcxkfnstyUniversity Hospitals Tripoint Medical CenterComment on above:ADA recommended reference rangeRandom Glucose Reference Range is dependent on time and content of last meal. Glucose of more than 200 mg/dL in a nonstressed, ambulatory subject supports the diagnosisof Diabetes Mellitus.Hematocrit Auto (Bld) [Volume fraction]Ordered By: Paige Luther on 73-75-1253Krzypykcei (Bld) [Volume fraction]23.7 %Low38.8-50.0 [facility] CenterHemoglobin [Mass/volume] in BloodOrdered By: Paige Luther on 97-55-9213Lsnbsyykjo (Bld) [Mass/Vol]7.7 g/dLLow13.0-17.0 [facility] CenterHemoglobin.gastrointestinal [Presence] in Stool Ordered By: Paige Luther on 27-99-3534Wzwtgdwqvx.gastrointestinal Ql (Stl) [facility] CenterHypochromia LM Ql (Bld)Ordered By: Paige Luther on 62-98-1095Kdgwovwfwxl Ql (Bld)MarkedUniversity Hospitals Tripoint Medical Center INR in Platelet poor plasma by Coagulation assayOrdered By: Paige Luther on 99-71-2192KIJ Coag (PPP) [Relative time]1.3 {INR}[facility] CenterComment on above:INR Therapeutic Range A) [...] by Automated counOrdered By: Paige Luther on 27-02-9342UWP corrected for nucl RBC Auto (Bld) [#/Vol]9.0 10*3/uL4.1-10.5FCincinnati Shriners HospitalLipase [Enzymatic activity/volume] in Serum or PlasmaOrdered By: Paige Luther on 22-94-7738Qitytl [Catalytic activity/Vol]5.0 U/LLow11.0-82.0[facility] CenterLymphocytes Auto (Bld) [#/Vol]Ordered By: Paige Luther on 13-20-7536Vwnpxogmiji (Bld) [#/Vol]1.5 10*3/uL1.00-4.8[facility] CenterLymphocytes/100 WBC Auto (Bld)Ordered By: Paige Luther on 29-29-0014Lzoyrngvrfd/100 WBC (Bld)16.3 %.[facility] HospitalH Auto (RBC) [Entitic mass]Ordered By: Paige Luther on 18-33-0961IOJ (RBC) [Entitic mass]24.9 pgLow27.5-35.2FSelect Medical Specialty Hospital - CantonHC Auto (RBC) [Mass/Vol]Ordered By: Paige Luther on 28-73-5863ECLO (RBC) [Mass/Vol] 32.6 g/dL32.5-35.6FCincinnati Shriners HospitalMCV Auto (RBC) [Entitic vol] Ordered By: Paige Luther on 93-58-4243RUZ (RBC) [Entitic vol]76.3 fLLow 83.5-101[facility] CenterMacrocytes LM Ql (Bld)Ordered By: Paige Luther on 59-10-2020Swoauznbrq Ql (Bld)[facility] CenterMicrocytes LM Ql (Bld)Ordered By: Paige Luther on 70-52-9156Vgioawtdia Ql (Bld)[facility] CenterMonocyte distribution width [Entitic volume] in Blood by AutomatedOrdered By: Paige Luther on 02-05-2024 Monocyte distribution width Auto (Bld) [Entitic vol]17.22 %0.00-20.00[facility] CenterMonocytes Auto (Bld) [#/Vol]Ordered By: Paige Luther on 25-30-2514Bhwlnyozp (Bld) [#/Vol]0.4 10*3/uL0.0-0.8[facility] CenterMonocytes/100 WBC Auto (Bld)Ordered By: Paige Luther on 02-05-2024 Monocytes/100 WBC (Bld)4.8 %.[facility] CenterNatriuretic peptide B [Mass/Vol]Ordered By: Paige Luther on 12-87-7937Grdrfpzxpfz peptide B (Bld) [Mass/Vol]399.0 pg/mLHigh5-100[facility] Neutrophils Auto (Bld) [#/Vol]Ordered By: Paige Luther on 02-05-2024 Neutrophils (Bld) [#/Vol]7.0 10*3/uL1.8-7.7FCincinnati Shriners Hospital Neutrophils/100 WBC Auto (Bld)Ordered By: Paige Luther on 02-05-2024 Neutrophils/100 WBC (Bld)78.3 %.[facility] CenterNo Panel InformationOrdered By: Paige Luther on 87-64-9424Jkhpktaky GFR (CKD-EPI)> 60.0 mL/MinUniversity Hospitals Tripoint Medical CenterPharmacy Creatinine Clearance (Chem45.07 [facility] Hospitallides for Pathologist ReviewOrdered path reviewUniversity Hospitals Tripoint Medical CenterNucleated erythrocytes [Presence] in Blood by Automated countOrdered By: Paige Luther on 58-88-4203Oysvivpto RBC Auto Ql (Bld)0.1 /100{WBC}0-0.5FCincinnati Shriners HospitalPlatelet adequacy [Presence] in Blood by Light microscopyOrdered By: Paige Luther on 52-36-4913Pwinquodt LM Ql (Bld)NormalNormalUniversity Hospitals Tripoint Medical Center Platelet mean volume Auto (Bld) [Entitic vol]Ordered By: Paige Luther on 71-62-3055Tykaqtzx mean volume (Bld) [Entitic vol]10.6 fLHigh6.6-10.1FCincinnati Shriners HospitalPlatelet morphology finding [Identifier] in BloodOrdered By: Paige Luther on 90-52-2082Vubdwuwc morphology finding Nom (Bld)Normal NormalUniversity Hospitals Tripoint Medical CenterPlatelets Auto (Bld) [#/Vol]Ordered By: Paige Luther on 12-68-0053Agctbsfar (Bld) [#/Vol]277 10*3/nM104-059PwskcfocpUniversity Hospitals Tripoint Medical CenterPoikilocytosis [Presence] in Blood by Light microscopy Ordered By: Paige Luther on 03-15-9244Syabjifbkjktfw LM Ql (Bld)Marked [facility] CenterPolychromasia [Presence] in Blood by Light microscopyOrdered By: Paige Luther on 64-25-7614Nvyjkwdsqrlus LM Ql (Bld) [facility] HospitalPotassium [Moles/volume] in Serum or PlasmaOrdered By: Paige Luther on 53-62-9905Ercvtrpls [Moles/Vol]5.1 mmol/L 3.5-5.1FCincinnati Shriners HospitalProtein [Mass/volume] in Serum or Plasma Ordered By: Paige Luther on 32-90-7181Misamxh [Mass/Vol]5.7 g/dLLow6.4-8.9 [facility] CenterProthrombin time (PT)Ordered By: Paige Luther on 97-23-3368GV Coag (PPP) [Time]15.5 sHigh9.0-12.9[facility] CenterComment on above:A hematocrit value greater than 55% may lead to inaccurate results in coagulation testing. Patientshaving hematocrit values >55% require a special collection tube for coagulation studies. Please contact the laboratory at [phone] for redraw instructions.RBC Auto (Bld) [#/Vol]Ordered By: Paige Luther on 77-43-8872VZE (Bld) [#/Vol]3.11 10*6/uLLow3.90-5.60 [facility] CenterRBC morphologyOrdered By: Paige Luther on 71-83-8826QDP morphology finding Nom (Bld)N/[facility] Schistocytes [Presence] in Blood by Light microscopyOrdered By: Paige Luther on 80-75-1828Iovpvtvvujee LM Ql (Bld)[facility] Serum or plasma albumin/globulin mass ratioOrdered By: Paige Luther on 52-13-7592Lcnxefk/Globulin [Mass ratio]1.4 {ratio}[facility] Hospitalerum or plasma anion gap determinationOrdered By: Paige Luther on 67-94-9482Funse gap [Moles/Vol]12.0 mmol/L6.0-15.0[facility] Hospitalerum or plasma non-glucuronidated bilirubin measurement (mass/volume) Ordered By: Paige Luther on 00-10-9276Gfkgcchow.indirect [Mass/Vol]0.4 mg/dL [facility] Hospitalodium [Moles/volume] in Serum or PlasmaOrdered By: Paige Luther on 17-12-4647Ukwilk [Moles/Vol]133 mmol/TWnj347-384WcnpaumekUniversity Hospitals Tripoint Medical CenterTarget cellsOrdered By: Paige Luther on 02-05-2024 Target cells LM Ql (Bld)SlightUniversity Hospitals Tripoint Medical CenterTroponin I.cardiac [Mass/volume] in Serum or Plasma by Detection limit <= 0.01 ng/Ordered By: Paige Luther on 42-91-4019Xhgvwoyf I.cardiac DL <= 0.01 ng/mL [Mass/Vol] 85.5 pg/mLHigh0.0-20.0[facility] CenterComment on above:Critical Result : Called to and read back by: PAIGE BENNETT at: 02/06/2024 00:36:33 by:[id number] nitrogen [Mass/volume] in Serum or PlasmaOrdered By: Paige Luther on 36-14-5603Agmx nitrogen [Mass/Vol]58 mg/dLHigh7-25[facility] CenterWBC Auto (Bld) [#/Vol]Ordered By: Paige Luther on 14-59-5747GHM (Bld) [#/Vol]9.0 10*3/uL4.1-10.5FCincinnati Shriners HospitalCBC AND AUTO DIFFon 67-16-7994FYUJBFVM BASOPHIL0.1 X10E9/LNormal0.0-0.2PLancaster Municipal HospitalComment on above:Performed By: #### CBCA, 94982-6, PINR, 35771-4, 15888- 7, 67842-6, 26028-8, THYR, 05849-0, CMP, 43782-7, 2157-6 #### [facility] ([id number]) [address] [place] [address] #### HA1C #### [facility] ([id number]) [address], [address] [place], [place] [address]ZFCMCOFVAPF4+AbnormalNONEProMedica Coram HospitalComment on above:Performed By: #### CBCA, 91751-7, PINR, 31899-8, 44319-1, 06337-6, 13515- 4, THYR, 65107-5, CMP, 87671-5, 2157-6 #### [facility] ([id number]) [address] [place] [address] #### HA1C #### [facility] ([id number]) [address], [address] [place], [place] [address]Jjfy form neutrophils/100 WBC (Bld)1.0 %NormalProMedica Coram HospitalComment on above:Performed By: #### CBCA, 23395-8, PINR, 26168-7, 35896- 7, 48414-0, 75121-5, THYR, 99064-4, CMP, 86803-9, 7-6 #### [facility] ([id number]) [address] [place] [address] #### HA1C #### [facility] ([id number]) [address], [address] [place], [place] [address]Yzmlzdrud/100 WBC (Bld)1.0 %NormalProZanesville City Hospital Hospital Comment on above:Performed By: #### CBCA, 88143-7, PINR, 34064-7, 10570-3, 38941-7, 37508-6, THYR, 99585-5, CMP, 83076-2, 2157-6 #### [facility] ([id number]) [address] [place], [place] [id number] #### HA1C #### [facility] ([id number]) [address], [address] [place], [place] [address]AYAP7+AbnormalNONEProMedica Stiles HospitalComment on above: Performed By: #### CBCA, 29551-7, PINR, 08618-4, 71264-1, 55711-3, 39465-7, THYR, 05704-2, CMP, 06248-3, 2156-6 #### [facility] ([id number]) [address] [place] [address] #### HA1C #### [facility] ([id number]) [address] [place] [address], [address] [place], [place] [address]Bwdgoyxulbg (Bld) [#/Vol]0.2 10*3/uLNormal0.0-0.4ProAcmc Healthcare Systemca Pomerene HospitalComment on above:Performed By: #### CBCA, 91250-0, PINR, 48315-0, 60657-2, 76522-4, 54873-4, THYR, 57505-1, CMP, 89451-9, 2156-6 #### [facility] ([id number]) [address] [place] [address] #### HA1C #### [facility] ([id number]) [address] [place] [address], [address] [place], [place] [address]Egagktouvxl/100 WBC (Bld)1.9 %NormalProCleveland Clinic Comment on above:Performed By: #### CBCA, 05730-9, PINR, 38162-1, 84296-8, 58194-7, 62946-9, THYR, 71239-3, CMP, 95556-7, 2156- #### [facility] ([id number]) [address] [place] [address] #### HA1C #### [facility] ([id number]) [address] [place] [address], [address] [place], [place] [address]Qadlzsiomij distribution width (RBC) [Ratio]19.3 %High11.5-15.0 ProMedica Pomerene HospitalComment on above:Performed By: #### CBCA, 26940-4, PINR, 55079-7, 13886-7, 57178-3, 63730-6, THYR, 62643-0, CMP, 48565-0, 2156-6 #### [facility] ([id number]) [address] [place] [address] #### HA1C #### [facility] ([id number]) [address], [address] [place], [place] [address]FOXPXAJD2+AbnormalNONEProMedica Coram HospitalComment on above: Performed By: #### CBCA, 11576-5, PINR, 48437-1, 28769-6, 73068-7, 72783-6, THYR, 62053-9, CMP, 15868-6, 2156- #### [facility] ([id number]) [address] [place] [address] #### HA1C #### [facility] ([id number]) [address], [address] [place], [place] [address]Ahjwgseeoz (Bld) [Volume fraction]31.5 %Buj85-45NvxDuawbf Toledo HospitalComment on above:Performed By: #### CBCHe, 82041-4, PINR, 29525-5, 14509- 7, 53099-0, 70188-5, THYR, 22947-9, CMP, 46963-2, 2156- #### [facility] ([id number]) [address] [place] [address] #### HA1C #### [facility] ([id number]) [address], [address] [place], [place] [address]Iywhmunugm (Bld) [Mass/Vol]10.4 g/dLLow13.0-17.0ProCleveland ClinicComment on above:Performed By: #### CBCA, 40631-8, PINR, 92644-0, 01083-5, 48803-8, 00870-8, THYR, 10584-8, CMP, 27055-6, 2157-6 #### [facility] ([id number]) [address] [place] [address] #### HA1C #### [facility] ([id number]) [address] [place] [address], [address] [place], [place] [address]IWJQYCSTQCM9+AbnormalNONEProMedica Coram HospitalComment on above:Performed By: #### CBCA, 95762-4, PINR, 02922-3, 45090-2, 90700-3, 81795- 4, THYR, 48965-9, CMP, 92815-4, 2157-6 #### [facility] ([id number]) [address] [place] [place] [address] #### HA1C #### [facility] ([id number]) [address] [place] [address], [address] [place], [place] [address]LASDEZJHNC, ATYPICAL1.0 %NormalProMedica Coram HospitalComment on above:Performed By: #### CBCA, 39965-3, PINR, 01687-5, 86555-7, 71157-1, 70553-0, THYR, 06668-9, CMP, 38224-6, 2156-6 #### [facility] ([id number]) [address] [place] [place] [address] #### HA1C #### [facility] ([id number]) [address] [place] [address], [address] [place], [place] [address]Ctrajelrdmf (Bld) [#/Vol]1.9 10*3/uLNormal1.0-3.5ProMedica Coram HospitalComment on above:Performed By: #### CBCA, 27544-7, PINR, 42062-6, 88433-4, 43265-2, 16216-5, THYR, 88051-5, CMP, 51989-4, 2157-6 #### [facility] ([id number]) [address] [place] [address] #### HA1C #### [facility] ([id number]) [address], [address] [place], [place] [address]Eccumxiaurq/100 WBC (Bld)20.0 %NormalSouthview Medical Center Comment on above:Performed By: #### CBCA, 19992-2, PINR, 96130-3, 44821-8, 83654-4, 43661-3, THYR, 62573-7, CMP, 17329-6, 2157-6 #### [facility] ([id number]) [address] [place] [address] #### HA1C #### [facility] ([id number]) [address], [address] [place], [place] [address]HUX (RBC) [Entitic mass]24.6 snKmx40-24HwiVkkaneSouthview Medical Center Comment on above:Performed By: #### CBCA, 15146-6, PINR, 87907-5, 28058-2, 75213-0, 33409-7, THYR, 02747-8, CMP, 61945-0, 2156-6 #### [facility] ([id number]) [address] [place] [address] #### HA1C #### [facility] ([id number]) [address] [address] [place], [place] [address]NOPZ (RBC) [Mass/Vol]32.9 g/lUGsplur46-88ObcNlrhitSouthview Medical CenterComment on above:Performed By: #### CBCA, 00671-8, PINR, 39903-2, 68897- 7, 80027-8, 00081-7, THYR, 43101-2, CMP, 65389-6, 7-6 #### [facility] ([id number]) [address] [place] [place] [address] #### HA1C #### [facility] ([id number]) [address], [address] [place], [place] [address]VXS (RBC) [Entitic vol]75 yHEly98-799KuzMpbqzzSouthview Medical Center Comment on above:Performed By: #### CBCA, 49952-0, PINR, 70876-8, 60271-3, 64621-5, 41839-3, THYR, 79423-6, CMP, 30470-4, 2157-6 #### [facility] ([id number]) [address] [place] [address] #### HA1C #### [facility] ([id number]) [address] [place], [place] [address]Jyylrefkr (Bld) [#/Vol]0.9 10*3/uLNormal0-0.9Southview Medical CenterComment on above:Performed By: #### CBCA, 38784-8, PINR, 63096-5, 60247- 7, 23651-9, 73492-2, THYR, 84090-0, CMP, 08448-4, 2156-6 #### [facility] ([id number]) [address] [place] [address] #### HA1C #### [facility] ([id number]) [address], [address] [place], [place] [address]Dqskqtbzx/100 WBC (Bld)9.5 %NormalSouthview Medical Center Comment on above:Performed By: #### CBCA, 14244-6, PINR, 79077-5, 17449-8, 52553-2, 91646-6, THYR, 62191-7, CMP, 18780-8, 2156-6 #### [facility] ([id number]) [address] [place] [address] #### HA1C #### [facility] ([id number]) [address] [place], [place] [address]Hfjbpvtebyz (Bld) [#/Vol]6.1 10*3/uLNormal1.5-6.6ProMedica Coram HospitalComment on above:Performed By: #### CBCA, 77970-2, PINR, 93167-0, 88843-0, 93680-2, 17794-1, THYR, 48699-2, CMP, 91751-1, 2157-6 #### [facility] ([id number]) [address] [place] [address] #### HA1C #### [facility] ([id number]) [address], [address] [place], [place] [address]Wcfrmuju mean volume (Bld) [Entitic vol]10.6 fLNormal7-12 [facility] Coram HospitalComment on above:Performed By: #### CBCA, 52432-6, PINR, 71276-3, 60615-3, 12582-9, 63541-8, THYR, 70313-8, CMP, 62439-5, 2157-6 #### [facility] ([id number]) [address] [place] [address] #### HA1C #### [facility] ([id number]) [address], [address] [place], [place] [address]Tbhjaauwd (Bld) [#/Vol]245 10*3/hEMmzlpe149-170PxlXwvbql [facility] HospitalComment on above:Performed By: #### CBCA, 86228-9, PINR, 86728-9, 28002- 7, 58672-1, 90972-7, THYR, 46163-9, CMP, 21835-3, 2157-6 #### [facility] ([id number]) [address] [place] [address] #### HA1C #### [facility] ([id number]) [address], [address] [place], [place] [address]QJN COUNT4.22 X10E12/LNormal4.10-5.70ProZanesville City Hospital Hospital Comment on above:Performed By: #### CBCA, 95606-0, PINR, 08812-2, 78312-5, 26894-1, 10136-2, THYR, 89132-7, CMP, 80237-9, 2157-6 #### [facility] ([id number]) [address] [place] [address] #### HA1C #### [facility] ([id number]) [address] [facility], [address] [place], [place] [address]UWT EYVVQDPVBB66.6 %NormalProZanesville City Hospital HospitalComment on above:Performed By: #### CBCA, 31369-6, PINR, 76733-7, 77902-2, 93731-0, 55780- 4, THYR, 49874-2, CMP, 26744-5, 2156-6 #### [facility] ([id number]) [address] [place] [address] #### HA1C #### [facility] ([id number]) [address] [place] [address], [address] [place], [place] [address]JHQART7+AbnormalNONEProMedica Coram HospitalComment on above: Performed By: #### CBCA, 34062-9, PINR, 46252-5, 75455-8, 86563-5, 73445-4, THYR, 55789-8, CMP, 04548-1, 2156-6 #### [facility] ([id number]) [address] [place] [place] [address] #### HA1C #### [facility] ([id number]) [address] [place] [address], [address] [place], [place] [address]BFG (Bld) [#/Vol]9.2 10*3/uLNormal4.0-11.0ProZ[facility] HospitalComment on above:Performed By: #### CBCA, 93869-5, PINR, 92086-1, 19050- 7, 43067-1, 85285-3, THYR, 54419-3, CMP, 92388-1, 2157-6 #### [facility] ([id number]) [address] [place], [place] [id number] #### HA1C #### [facility] ([id number]) [address] [place] [address], [address] [place], [place] [address]UN [Catalytic activity/Vol]on [id number] U/DSndy83-144 [facility] HospitalComment on above:Performed By: #### CBCA, 50024-0, PINR, 56914-2, 76827-5, 22579-2, 37297-0, THYR, 07576-4, CMP, 81071-7, 2157-6 #### [facility] ([id number]) [address] [place] [address] #### HA1C #### [facility] ([id number]) [address] [place] [address], [address] [place], [place] [id number] U/ZLxjl64-482PxoXtoxbf Coram HospitalComment on above: Performed By: #### CBCHe, 39642-3, PINR, 69824-9, 42357-3, 18661-0, 32392-7, THYR, 36576-4, CMP, 45572-2, 2157-6 #### [facility] ([id number]) [address] [place] [address] #### HA1C #### [facility] ([id number]) [address] [place] [address], [address] [place], [place] [address]BZNATBMQERSGZ METABOLIC PANELon 86-31-3483Pfjuipm [Mass/Vol]3.4 g/dLNormal3.2-5.3[facility] HospitalComment on above:Performed By: #### CBCA, 54930-9, PINR, 09075-7, 30254-1, 57559-7, 70788-7, THYR, 34504-4, CMP, 27151-6, 2157-6 #### [facility] ([id number]) [address] [place] [address] #### HA1C #### [facility] ([id number]) [address], [address] [place], [place] [address]PEQ [Catalytic activity/Vol]102 U/TTuaydp64-772TorTwppgd [place] HospitalComment on above:Performed By: #### CBCA, 46222-6, PINR, 79505-1, 79476- 7, 55666-8, 20954-3, THYR, 13362-9, CMP, 64253-0, 2157-6 #### [facility] ([id number]) [address] [place] [address] #### HA1C #### [facility] ([id number]) [address], [address] [place], [place] [address]DZL [Catalytic activity/Vol]26 U/LNormal0-40ProCleveland ClinicComment on above:Performed By: #### CBCA, 06345-3, PINR, 18202-2, 70510- 7, 48686-1, 51159-8, THYR, 92359-0, CMP, 44006-5, 7-6 #### [facility] ([id number]) [address] [place] [address] #### HA1C #### [facility] ([id number]) [address], [address] [place], [place] [address]Yjccn gap [Moles/Vol]9 mmol/LNormal5-15[facility] Hospital Comment on above:Performed By: #### CBCA, 38726-2, PINR, 22778-6, 74082-6, 55782-0, 13856-5, THYR, 40441-6, CMP, 34028-5, 2157-6 #### [facility] ([id number]) [address] [place] [address] #### HA1C #### [facility] ([id number]) [address] [place] [address], [address] [place], [place] [address]VQU [Catalytic activity/Vol]31 U/LNormal0-41[facility] HospitalComment on above:Performed By: #### CBCA, 22743-2, PINR, 06422-9, 96380- 7, 81442-1, 27089-1, THYR, 50963-0, CMP, 93797-4, 7-6 #### [facility] ([id number]) [address] [place] [address] #### HA1C #### [facility] ([id number]) [address] [place] [address], [address] [place], [place] [address]Dbaxukthv [Mass/Vol]0.7 mg/dLNormal0.3-1.2ProMedica Coram HospitalComment on above:Performed By: #### CBCA, 04326-9, PINR, 05032-3, 78529- 7, 69241-0, 78063-8, THYR, 85004-4, CMP, 06521-8, 7-6 #### [facility] ([id number]) [address] [place] [address] #### HA1C #### [facility] ([id number]) [address] [place] [address], [address] [place], [place] [address]Noybxjz [Mass/Vol]8.5 mg/dLNormal8.5-10.5ProMedAk[facility] Hospital HospitalComment on above:Performed By: #### CBCA, 72134-6, PINR, 92251-1, 60657- 7, 61583-5, 95186-2, THYR, 45740-8, CMP, 73549-3, 2157-6 #### [facility] ([id number]) [address] [place] [address] #### HA1C #### [facility] ([id number]) [address], [address] [place], [place] [address]Bkjakusy [Moles/Vol]103 mmol/XRfxbex42-417IutCrhwut [place] HospitalComment on above:Performed By: #### WILLIAM, 87665-8, PINR, 09376-2, 36141- 7, 47675-4, 88483-0, THYR, 12225-0, CMP, 92619-1, 2157-6 #### [facility] ([id number]) [address] [place], [place] [id number] #### HA1C #### [facility] ([id number]) [address], [address] [place], [place] [address]ZI3 [Moles/Vol]24 mmol/PUodytu74-26BhiUergjoLancaster Municipal Hospital Comment on above:Performed By: #### WILLIAM, 35274-4, PINR, 42358-0, 03058-2, 45016-8, 97025-6, THYR, 14636-8, CMP, 58903-9, 2156-6 #### [facility] ([id number]) [address] [place] [address] #### HA1C #### [facility] ([id number]) [address], [address] [place], [place] [address]Pzadffjdnm [Mass/Vol]0.77 mg/dLNormal0.60-1.30ProCleveland ClinicComment on above:Result Comment: METHOD TRACEABLE TO IDMS STANDARD Performed By: #### CBCA, 44565-7, PINR, 52344-8, 91480-7, 42723-4, 54556-4, THYR, 33030-8, CMP, 78817-2, 7-6 #### [facility] ([id number]) [address] [place], [place] [address] #### HA1C #### [facility] ([id number]) [address], [address] [place], [place] [address]GQH/1.73 sq M.predicted among non-blacks MDRD (S/P/Bld) [Vol rate/Area]87 mL/min/{1.73_m2}Normal>59ProCleveland ClinicComment on above: Result Comment: Reported eGFR is based on the CKD-EPI 2020 equation that does not use a race coefficient.Performed By: #### CBCA, 90731-6, PINR, 33828-3, 78431-8, 80795-7, 65116-6, THYR, 99480-1, CMP, 11956-9, 2156- #### [facility] ([id number]) [address] [place] [address] #### HA1C #### [facility] ([id number]) [address], [address] [place], [place] [address]Kaopkek [Mass/Vol]167 mg/aVDgjx79-67ZamJcvmtiCleveland Clinic Comment on above:Performed By: #### WILLIAM, 35444-1, PINR, 44021-3, 42337-1, 47206-5, 32350-2, THYR, 11200-4, CMP, 78005-5, 2156- #### [facility] ([id number]) [address] [place] [address] #### HA1C #### [facility] ([id number]) [address], [facility] [address] [place], [place] [address]Eficmvfir [Moles/Vol]4.0 mmol/LNormal3.5-5.0ProCleveland ClinicComment on above:Performed By: #### CBCA, 32558-5, PINR, 10436-4, 39100- 7, 36941-9, 72051-6, THYR, 79280-7, CMP, 87761-6, 2156- #### [facility] ([id number]) [address] [place] [address] #### HA1C #### [facility] ([id number]) [address], [address] [place], [place] [address]Hwhpeec [Mass/Vol]6.0 g/dLNormal6.0-8.0ProC[facility] Clinic Comment on above:Performed By: #### CBCA, 28304-2, PINR, 05155-8, 33967-1, 56176-8, 79949-8, THYR, 07942-7, CMP, 95235-9, 2156-6 #### [facility] ([id number]) [address] [place] [address] #### HA1C #### [facility] ([id number]) [address] [facility], [address] [place], [place] [address]Qqgwyj [Moles/Vol]136 mmol/YVkbcxg012-945LjhEhdtuu [place] HospitalComment on above:Performed By: #### CBCA, 19799-7, PINR, 25374-4, 38187- 7, 56969-0, 88060-9, THYR, 93321-3, CMP, 44865-5, 2156- #### [facility] ([id number]) [address] [place] [address] #### HA1C #### [facility] ([id number]) [address], [address] [place], [place] [address]Iceu nitrogen [Mass/Vol]16 mg/dLNormal5-27ProCleveland ClinicComment on above:Performed By: #### CBCA, 74709-2, PINR, 67885-4, 08556- 7, 02833-9, 03070-4, THYR, 69242-7, CMP, 65296-5, 2156- #### [facility] ([id number]) [address] [place] [address] #### HA1C #### [facility] ([id number]) [address], [address] [place], [place] [address]Hkzgcqh Glucometer (BldC) [Mass/Vol]on 97-11-3015Zaegpgs [Mass/Vol]371 mg/oVYuls64-10KtzJhkcdv Coram HospitalGlucose [Mass/Vol]181 mg/dL Ezsw52-28UvqKbrbft [place] HospitalMAGNESIUMon 17-15-8794Cjjxbnkgi [Mass/Vol]1.6 mg/dLLow1.8-2.6ProMedica Coram HospitalComment on above:Performed By: #### WILLIAM, 07431-4, PINR, 07568-2, 37849-0, 84100-5, 47416-6, THYR, 17432-7, CMP, 47166-4, 2156-6 #### [facility] ([id number]) [facility] [place] [address] #### HA1C #### [facility] ([id number]) [address] [facility], [address] [place], [place] [address]ES [Catalytic activity/Vol]on 49-95-5271TYB970 U/RFccq91-132 Pro[facility]ica Coram HospitalComment on above:Performed By: #### WILLIAM, 16884-8, PINR, 56814-0, 77268-2, 82465-6, 67379-2, THYR, 85964-8, CMP, 54142-8, 2156- #### [facility] ([id number]) [address] [place] [address] #### HA1C #### [facility] ([id number]) [address] [facility], [address] [place], [place] [address]VMN261 U/IItib41-620CmxQrwgwl [place] HospitalComment on above: Performed By: #### WILLIAM, 45443-7, PINR, 99395-6, 36498-3, 23377-4, 41272-2, THYR, 56931-9, CMP, 19669-3, 2156- #### [facility] ([id number]) [address] [place], [place] [address] #### HA1C #### [facility] ([id number]) [address] [place] [address], [address] [place], [place] [address]UJE548 U/JEzti32-266ZuqBgwcox [place] HospitalComment on above: Performed By: #### CBCA, 04583-2, PINR, 24149-3, 92610-9, 54027-9, 39312-1, THYR, 78114-6, CMP, 01769-4, 2157-6 #### [facility] ([id number]) [address] [place] [address] #### HA1C #### [facility] ([id number]) [address] [place] [address], [address] [place] [address]XDSOSSLU BLOOD COUNTon 94-74-3850Sdkfcfdgmtp distribution width (RBC) [Ratio]19.8 %High11.5-15.0ProZanesville City Hospital HospitalComment on above: Performed By: #### CBCA, 37645-2, PINR, 92549-6, 93400-4, 39043-1, 17564-6, THYR, 36202-8, CMP, 93870-9, 7-6 #### [facility] ([id number]) [address] [place] [address] #### HA1C #### [facility] ([id number]) [address] [place] [address], [address] [place] [address]Ewsaulwdxx (Bld) [Volume fraction]34.0 %Lak76-91BmsZoqvpc [place] HospitalComment on above:Performed By: #### CBCA, 21070-8, PINR, 76659-7, 85212- 7, 97257-2, 90948-6, THYR, 28256-1, CMP, 75729-4, 2157-6 #### [facility] ([id number]) [address] [place], [place] [address] #### HA1C #### [facility] ([id number]) [address], [address] [place], [place] [address]Slzslxuobn (Bld) [Mass/Vol]11.0 g/dLLow13.0-17.0ProCleveland ClinicComment on above:Performed By: #### CBCA, 84198-5, PINR, 90006-5, 07994-7, 76176-4, 40532-1, THYR, 49981-6, CMP, 18202-9, 2157-6 #### [facility] ([id number]) [address] [place] [address] #### HA1C #### [facility] ([id number]) [address] [facility], [address] [place], [place] [address]YEK (RBC) [Entitic mass]24.3 faKlk99-81KuaFkmzoc [facility] Comment on above:Performed By: #### CBCA, 11104-5, PINR, 47786-1, 70713-1, 05565-9, 14649-5, THYR, 30341-4, CMP, 69357-8, 2156-6 #### [facility] ([id number]) [address] [place] [address] #### HA1C #### [facility] ([id number]) [address], [address] [place], [place] [address]POQB (RBC) [Mass/Vol]32.3 g/qEPddmsr27-71IkiSujwao [place] HospitalComment on above:Performed By: #### CBCA, 81096-4, PINR, 21308-3, 50420- 7, 31587-1, 14216-0, THYR, 40510-4, CMP, 39552-8, 2156-6 #### [facility] ([id number]) [address] [place] [address] #### HA1C #### [facility] ([id number]) [address], [address] [place], [place] [address]PZI (RBC) [Entitic vol]75 gZWhg07-326UgqEktxvzCleveland Clinic Comment on above:Performed By: #### CBCA, 57522-9, PINR, 78879-9, 95232-2, 02369-0, 11108-1, THYR, 57334-3, CMP, 63075-7, 2157-6 #### [facility] ([id number]) [address] [place] [address] #### HA1C #### [facility] ([id number]) [address], [address] [place], [place] [address]Fxpfetcp mean volume (Bld) [Entitic vol]10.5 fLNormal7-12 Pro[facility]ica Pomerene HospitalComment on above:Performed By: #### CBCA, 15236-5, PINR, 00751-3, 67310-7, 66226-4, 59547-2, THYR, 91313-5, CMP, 06292-8, 7-6 #### [facility] ([id number]) [address] [place] [address] #### HA1C #### [facility] ([id number]) [address], [address] [place], [place] [address]Lsfkhpspe (Bld) [#/Vol]237 10*3/hNUtmxmf939-139DcwFnaicz [place] HospitalComment on above:Performed By: #### CBCA, 38101-4, PINR, 30517-7, 88756- 7, 51969-3, 20052-9, THYR, 01303-8, CMP, 38713-1, 7-6 #### [facility] ([id number]) [address] [place] [address] #### HA1C #### [facility] ([id number]) [address] [facility] [facility], [address] [place], [place] [address]AXK COUNT4.51 X10E12/LNormal4.10-5.70[facility] Comment on above:Performed By: #### CBCA, 39739-1, PINR, 49556-6, 89770-6, 86911-4, 69322-6, THYR, 59014-3, CMP, 58134-3, 2157-6 #### [facility] ([id number]) [address] [place] [address] #### HA1C #### [facility] ([id number]) [address] [place] [address], [address] [place], [place] [address]YXT (Bld) [#/Vol]12.3 10*3/uLHigh4.0-11.0ProCleveland ClinicComment on above:Performed By: #### CBCA, 80929-2, PINR, 18470-4, 24447- 7, 72692-9, 34614-2, THYR, 97384-0, CMP, 47321-7, 2157-6 #### [facility] ([id number]) [address] [place] [address] #### HA1C #### [facility] ([id number]) [address] [place] [address], [address] [place], [place] [address]PETCYRALPJIWG METABOLIC PANELon 53-36-4783Txuopss [Mass/Vol]3.7 g/dLNormal3.2-5.3ProMedSelect Medical TriHealth Rehabilitation HospitalComment on above:Performed By: #### CBCA, 73906-0, PINR, 96614-6, 46299-1, 55625-8, 21542-6, THYR, 63049-4, CMP, 47419-6, 2157-6 #### [facility] ([id number]) [address] [place] [address] #### HA1C #### [facility] ([id number]) [address] [place] [address], [address] [place], [place] [address]NLE [Catalytic activity/Vol]117 U/HDpyxgq92-448LsrShchjf Stiles HospitalComment on above:Performed By: #### WILLIAM, 39956-0, PINR, 89258-2, 21256- 7, 12873-3, 33443-6, THYR, 44344-9, CMP, 02409-3, 2157-6 #### [facility] ([id number]) [address] [place] [address] #### HA1C #### [facility] ([id number]) [address] [place] [address], [address] [place], [place] [address]HGX [Catalytic activity/Vol]29 U/LNormal0-40ProMedica Stiles HospitalComment on above:Performed By: #### WILLIAM, 29592-1, PINR, 83757-8, 93720- 7, 83202-5, 68427-6, THYR, 20333-8, CMP, 45533-0, 2157-6 #### [facility] ([id number]) [address] [place] [address] #### HA1C #### [facility] ([id number]) [address] [place] [address], [address] [place], [place] [address]Yeyvu gap [Moles/Vol]13 mmol/LNormal5-15ProAcmc Healthcare Systemca [facility]am HospitalComment on above:Performed By: #### WILLIAM, 70633-9, PINR, 16823-1, 80363- 7, 86970-1, 78216-6, THYR, 50098-9, CMP, 52520-6, 2157-6 #### [facility] ([id number]) [address] [place] [address] #### HA1C #### [facility] ([id number]) [address] [place] [address], [address] [place], [place] [address]LLP [Catalytic activity/Vol]51 U/LHigh0-41Pro[facility] Stiles HospitalComment on above:Performed By: #### WILLIAM, 86206-8, PINR, 58898-2, 61895- 7, 14400-1, 31675-0, THYR, 03269-3, CMP, 93608-2, 2156-6 #### [facility] ([id number]) [address] [place] [address] #### HA1C #### [facility] ([id number]) [address] [facility] [facility], [address] [place], [place] [address]Jhfgflazl [Mass/Vol]0.7 mg/dLNormal0.3-1.2[facility] HospitalComment on above:Performed By: #### CBCA, 36834-4, PINR, 84607-3, 27201- 7, 92545-3, 29614-3, THYR, 86864-6, CMP, 34057-5, 2156-6 #### [facility] ([id number]) [address] [place] [address] #### HA1C #### [facility] ([id number]) [address] [facility] [facility], [address] [place], [place] [address]Kuddylx [Mass/Vol]8.5 mg/dLNormal8.5-10.5[facility] HospitalComment on above:Performed By: #### CBCA, 40796-1, PINR, 34493-8, 42603- 7, 43521-2, 50603-3, THYR, 37655-5, CMP, 97095-2, 2156-6 #### [facility] ([id number]) [address] [place] [address] #### HA1C #### [facility] ([id number]) [address] [facility] [facility], [address] [place], [place] [address]Gtlmffyr [Moles/Vol]103 mmol/VMlyyxz07-659AsnBodccj [facility] HospitalComment on above:Performed By: #### CBCA, 75030-4, PINR, 41331-2, 53381- 7, 09076-4, 90644-5, THYR, 92436-2, CMP, 72499-1, 7-6 #### [facility] ([id number]) [address] [place] [address] #### HA1C #### [facility] ([id number]) [address] [facility] [facility], [address] [place], [place] [address]DL0 [Moles/Vol]19 mmol/QYih61-45YfjRenjkt Pomerene HospitalComment on above:Performed By: #### WILLIAM, 87219-7, PINR, 14930-8, 55971-1, 93054-0, 48496-5, THYR, 00673-7, CMP, 79009-0, 2156-6 #### [facility] ([id number]) [address] [place] [address] #### HA1C #### [facility] ([id number]) [address] [place] [address], [address] [place] [address]Xfghuokxvn [Mass/Vol]0.72 mg/dLNormal0.60-1.30ProCleveland ClinicComment on above:Result Comment: METHOD TRACEABLE TO IDMS STANDARD Performed By: #### WILLIAM, 17307-5, PINR, 80176-4, 55970-4, 94573-8, 73918-4, THYR, 52227-6, CMP, 63793-0, 2156-6 #### [facility] ([id number]) [address] [place] [address] #### HA1C #### [facility] ([id number]) [address] [facility] [facility], [address] [place], [place] [address]SKR/1.73 sq M.predicted among non-blacks MDRD (S/P/Bld) [Vol rate/Area]89 mL/min/{1.73_m2}Normal>59ProCleveland ClinicComment on above: Result Comment: Reported eGFR is based on the CKD-EPI 2020 equation that does not use a race coefficient.Performed By: #### CBCA, 83708-5, PINR, 71118-6, 87567-4, 53234-4, 30258-2, THYR, 26697-5, CMP, 42266-9, 2156-6 #### [facility] ([id number]) [address] [place] [address] #### HA1C #### [facility] ([id number]) [address], [address] [place], [place] [address]Iqhyijv [Mass/Vol]208 mg/zFBxdi77-01UvwZioawnCleveland Clinic Comment on above:Performed By: #### CBCA, 99483-1, PINR, 08302-5, 48948-5, 60208-8, 30151-6, THYR, 90606-5, CMP, 11474-0, 2156-6 #### [facility] ([id number]) [address] [place] [address] #### HA1C #### [facility] ([id number]) [address], [address] [place], [place] [address]Hcxksiwxo [Moles/Vol]4.2 mmol/LNormal3.5-5.0ProCleveland ClinicComment on above:Performed By: #### CBCHe, 45220-9, PINR, 18803-9, 70979- 7, 53872-0, 47609-1, THYR, 71192-7, CMP, 79461-5, 2156-6 #### [facility] ([id number]) [address] [place], [place] [address] #### HA1C #### [facility] ([id number]) [address], [address] [place], [place] [address]Jkmwfvd [Mass/Vol]6.6 g/dLNormal6.0-8.0[facility] Comment on above:Performed By: #### CBCA, 64843-4, PINR, 17990-6, 89665-4, 83874-8, 76756-1, THYR, 04202-8, CMP, 55269-9, 2157-6 #### [facility] ([id number]) [address] [place] [address] #### HA1C #### [facility] ([id number]) [address] [place] [address], [address] [place], [place] [address]Uwlinz [Moles/Vol]135 mmol/OUgfvay985-531YyhJgbtdb [facility] HospitalComment on above:Performed By: #### CBCHe, 16023-4, PINR, 39256-2, 73221- 7, 74826-6, 88408-8, THYR, 15873-1, CMP, 28759-6, 2156-6 #### [facility] ([id number]) [address] [place] [address] #### HA1C #### [facility] ([id number]) [address] [place] [address], [address] [place], [place] [address]Fprv nitrogen [Mass/Vol]18 mg/dLNormal5-27ProZ[facility] HospitalComment on above:Performed By: #### WILLIAM, 09927-0, PINR, 24014-2, 32271- 7, 93281-9, 34316-7, THYR, 72807-9, CMP, 86692-7, 2156- #### [facility] ([id number]) [address] [place] [address] #### HA1C #### [facility] ([id number]) [address] [place] [address], [address] [place], [place] [address]YLTPYODECEJZuq 47-16-4194FJAWZMHJVLB2+AbnormalNONEProMedica Coram HospitalComment on above:Performed By: #### CBCA, 42356-5, PINR, 52260-4, 92100-7, 29128-1, 49455-0, THYR, 61488-0, CMP, 78937-0, 2156-6 #### [facility] ([id number]) [address] [place] [address] #### HA1C #### [facility] ([id number]) [address], [address] [place], [place] [address]Znqtppauyjuo Ql (Bld)2+AbnormalNONEProMedica [facility] Comment on above:Performed By: #### CBCA, 22530-2, PINR, 76099-8, 81269-5, 06098-8, 28506-2, THYR, 69158-4, CMP, 32223-7, 2156- #### [facility] ([id number]) [address] [place] [address] #### HA1C #### [facility] ([id number]) [address] [facility], [address] [place], [place] [address]Yztq form neutrophils/100 WBC (Bld)9.0 %NormalProMedica Pomerene HospitalComment on above:Performed By: #### CBCA, 53048-8, PINR, 43140-0, 76764- 7, 51324-9, 92966-8, THYR, 41772-4, CMP, 55561-4, 2156- #### [facility] ([id number]) [address] [place] [address] #### HA1C #### [facility] ([id number]) [address], [address] [place], [place] [address]EQBN7+AbnormalNONEProMedSelect Medical TriHealth Rehabilitation HospitalComment on above: Performed By: #### CBCA, 89011-5, PINR, 39754-9, 45798-6, 96868-7, 97816-6, THYR, 27094-5, CMP, 95832-5, 2156-12 #### [facility] ([id number]) [address] [place] [address] #### HA1C #### [facility] ([id number]) [address], [address] [place], [place] [address]Eomsxafivqp (Bld) [#/Vol]0.1 10*3/uLNormal0.0-0.4ProMedica Coram HospitalComment on above:Performed By: #### CBCA, 05007-9, PINR, 49419-4, 53607-5, 44565-5, 73460-7, THYR, 84699-1, CMP, 32030-5, 2157-6 #### [facility] ([id number]) [address] [place] [address] #### HA1C #### [facility] ([id number]) [address], [address] [place], [place] [address]Qpznkrmpycm/100 WBC (Bld)1.0 %NormalProZanesville City Hospital Hospital Comment on above:Performed By: #### CBCA, 00506-9, PINR, 68273-1, 25511-1, 52181-5, 13128-8, THYR, 65279-6, CMP, 29052-3, 2156-6 #### [facility] ([id number]) [address] [place] [address] #### HA1C #### [facility] ([id number]) [address], [address] [place], [place] [address]BSGOAQGY2+AbnormalNONEProMedica Coram HospitalComment on above: Performed By: #### CBCA, 97980-5, PINR, 21346-4, 64438-8, 36354-8, 11463-0, THYR, 91952-5, CMP, 02932-5, 7-6 #### [facility] ([id number]) [address] [place] [address] #### HA1C #### [facility] ([id number]) [address], [address] [place], [place] [address]LLWPMR-MEBCK BODY1+AbnormalNONEProMedica Coram HospitalComment on above:Performed By: #### CBCA, 76728-4, PINR, 11075-5, 52005-9, 68688-0, 99583-2, THYR, 30963-4, CMP, 28717-6, 2157-6 #### [facility] ([id number]) [address] [place] [address] #### HA1C #### [facility] ([id number]) [address] [place] [address], [address] [place], [place] [address]XMTJIFLABAN4+AbnormalNONEProMedica Coram HospitalComment on above:Performed By: #### CBCA, 29722-4, PINR, 62352-4, 22445-8, 98598-1, 63591- 4, THYR, 88428-5, CMP, 49785-7, 7-6 #### [facility] ([id number]) [address] [place] [address] #### HA1C #### [facility] ([id number]) [address] [place] [address], [address] [place], [place] [address]VDFPRTPDRV, ATYPICAL1.0 %NormalProMedica Coram HospitalComment on above:Performed By: #### CBCA, 32284-7, PINR, 95187-3, 17459-2, 55544-3, 97956-3, THYR, 47253-0, CMP, 89242-2, 2156-6 #### [facility] ([id number]) [address] [place] [address] #### HA1C #### [facility] ([id number]) [address] [place] [address], [address] [place], [place] [address]Ijqfxwhllsz (Bld) [#/Vol]1.6 10*3/uLNormal1.0-3.5ProMedica Coram HospitalComment on above:Performed By: #### CBCA, 65261-9, PINR, 37254-7, 52457-5, 07233-5, 01611-3, THYR, 81229-4, CMP, 39477-4, 7-6 #### [facility] ([id number]) [address] [place] [address] #### HA1C #### [facility] ([id number]) [address] [place] [address], [address] [place], [place] [address]Eemtkrudwpt/100 WBC (Bld)12.0 %[facility] Comment on above:Performed By: #### CBCA, 43243-7, PINR, 53285-7, 37648-3, 70619-6, 58564-6, THYR, 57869-3, CMP, 44632-5, 2156-6 #### [facility] ([id number]) [address] [place] [address] #### HA1C #### [facility] ([id number]) [address] [place] [address], [address] [place], [place] [address]Buywybcct (Bld) [#/Vol]1.4 10*3/uLHigh0-0.9Southview Medical CenterComment on above:Performed By: #### CBCA, 62502-6, PINR, 96721-2, 27265- 7, 27856-8, 58414-6, THYR, 26308-4, CMP, 87070-0, 2156-6 #### [facility] ([id number]) [address] [place] [address] #### HA1C #### [facility] ([id number]) [address] [place] [address], [address] [place], [place] [address]Ysgeuvjri/100 WBC (Bld)11.0 %[facility] Comment on above:Performed By: #### CBCA, 41350-1, PINR, 49565-2, 08887-9, 06612-8, 46189-5, THYR, 78997-4, CMP, 15640-2, 2157-6 #### [facility] ([id number]) [address] [place] [address] #### HA1C #### [facility] ([id number]) [address] [place] [address], [address] [place], [place] [address]Vfbjrurojxf (Bld) [#/Vol]9.2 10*3/uLHigh1.5-6.6ProMedica Coram HospitalComment on above:Performed By: #### CBCA, 77588-4, PINR, 45591-6, 77603- 7, 71061-6, 57046-7, THYR, 68810-5, CMP, 32683-3, 2156-6 #### [facility] ([id number]) [address] [place] [address] #### HA1C #### [facility] ([id number]) [address] [place] [address], [address] [place], [place] [address]GNSSZEIHZYWYY9+AbnormalNONEProMedica Coram HospitalComment on above:Performed By: #### CBCA, 44916-0, PINR, 34640-5, 91460-8, 00193-8, 54123- 4, THYR, 46990-7, CMP, 02743-8, 2156-6 #### [facility] ([id number]) [address] [place] [address] #### HA1C #### [facility] ([id number]) [address] [place] [address], [address] [place], [place] [address]NXA GBQBGSHEJT12.0 %NormalProMedica Coram HospitalComment on above:Performed By: #### CBCA, 55333-6, PINR, 49498-4, 56156-6, 06874-1, 70324- 4, THYR, 69709-2, CMP, 26903-8, 2156-6 #### [facility] ([id number]) [address] [place], [place] [id number] #### HA1C #### [facility] ([id number]) [address], [address] [place], [place] [address]YNINMLNFMN3+AbnormalNONEPEast [facility] Regional Hospital HospitalComment on above:Performed By: #### WILLIAM, 06241-8, PINR, 69311-6, 33840-1, 07317-4, 86160- 4, THYR, 26333-7, CMP, 32439-6, 2157-6 #### [facility] ([id number]) [address] [place] [address] #### HA1C #### [facility] ([id number]) [address], [address] [place], [place] [address]ZPTVWA8+AbnormalNONEProMedAkron Children's Hospital HospitalComment on above: Performed By: #### WILLIAM, 05222-0, PINR, 82057-9, 93230-5, 66453-7, 93798-1, THYR, 68848-7, CMP, 38548-8, 2157-6 #### [facility] ([id number]) [address] [place] [address] #### HA1C #### [facility] ([id number]) [address], [address] [place], [place] [address]Ltvaqnd Glucometer (BldC) [Mass/Vol]on 08-62-5025Porwdnv [Mass/Vol]274 mg/kXJqud44-79XuhZahfegCleveland ClinicGlucose [Mass/Vol]426 mg/dL Critically orxw81-43LuxUmbfkeCleveland ClinicGlucose [Mass/Vol]450 mg/dL Critically rqgq47-85GgxAgqtok [place] HospitalGlucose [Mass/Vol]245 mg/dLHigh 65-99ProCleveland ClinicHeparin unfractionated Chromogenic method Qn (PPP) on 44-18-5318HEKQ XA UFH0.38 IU/mLNormal0.30-0.70[facility] Comment on above:Result Comment: Optimal time for testing is 6 hrs post dosage This test is specific for monitoring patients on UFH, and is not recommended for use with other Anti-Xa medications.Performed By: #### CBCA, 93152-6, PINR, 61204-7, 03863-7, 65160-1, 60198-7, THYR, 92276-0, CMP, 03356-9, 2157-6 #### [facility] ([id number]) [address] [place] [address] #### HA1C #### [facility] ([id number]) [address] [facility], [address] [place], [place] [address]DEXP XA UFH0.44 IU/mLNormal0.30-0.70[facility] Comment on above:Result Comment: Optimal time for testing is 6 hrs post dosage This test is specific for monitoring patients on UFH, and is not recommended for use with other Anti-Xa medications.Performed By: #### WILLIAM, 23641-3, PINR, 40920-3, 63323-0, 05512-1, 41160-7, THYR, 89087-7, CMP, 82335-7, 2156-6 #### [facility] ([id number]) [address] [place] [address] #### HA1C #### [facility] ([id number]) [address] [facility], [address] [place], [place] [address]XVHMKAAHYea 34-63-4861Khqizzqit [Mass/Vol]1.8 mg/dLNormal1.8-2.6 [facility] HospitalComment on above:Performed By: #### CBCA, 91066-3, PINR, 69623-2, 91583-7, 21808-6, 16873-7, THYR, 87295-6, CMP, 89829-9, 2157-6 #### [facility] ([id number]) [facility] [place] [address] #### HA1C #### [facility] ([id number]) [address], [address] [place], [place] [address]ALW AND AUTO DIFFon 96-53-9152ZWYXWXFUXTP4+AbnormalNONEProMedAkron Children's Hospital HospitalComment on above:Performed By: #### CBCA, 87076-4, PINR, 96651- 9, 50299-4, 25501-0, 63386-4, THYR, 89923-8, CMP, 77510-9, 2157-6 #### [facility] ([id number]) [address] [place] [address] #### HA1C #### [facility] ([id number]) [address], [address] [place], [place] [address]Fbsetegpnhsp Ql (Bld)2+AbnormalNONEPEast [facility] Comment on above:Performed By: #### CBCA, 00743-5, PINR, 00402-8, 40312-9, 64753-4, 42504-1, THYR, 72049-8, CMP, 69286-6, 2157-6 #### [facility] ([id number]) [address] [place] [address] #### HA1C #### [facility] ([id number]) [address], [address] [place], [place] [address]Zphx form neutrophils/100 WBC (Bld)7.0 %NormalProMedica Coram HospitalComment on above:Performed By: #### CBCA, 62669-4, PINR, 92172-4, 19721- 7, 51715-3, 59985-4, THYR, 59634-3, CMP, 64197-1, 2157-6 #### [facility] ([id number]) [address] [place], [place] [address] #### HA1C #### [facility] ([id number]) [address], [address] [place], [place] [address]QMLI0+AbnormalNONEPEast [facility] HospitalComment on above: Performed By: #### CBCA, 22057-2, PINR, 29725-8, 97996-3, 69369-1, 41509-5, THYR, 90924-0, CMP, 43560-4, 2156-6 #### [facility] ([id number]) [address] [place] [address] #### HA1C #### [facility] ([id number]) [address] [place] [address], [address] [place], [place] [address]Spdooheavsq (Bld) [#/Vol]0.6 10*3/uLHigh0.0-0.4ProCleveland ClinicComment on above:Performed By: #### CBCA, 11928-3, PINR, 93881-3, 46903- 7, 33977-3, 11276-8, THYR, 86523-9, CMP, 92305-8, 2156- #### [facility] ([id number]) [address] [place] [address] #### HA1C #### [facility] ([id number]) [address] [place] [address], [address] [place], [place] [address]Ykrjlaqgypx/100 WBC (Bld)7.0 %NormalSouthview Medical Center Comment on above:Performed By: #### CBCA, 85506-3, PINR, 84893-1, 20056-3, 88118-9, 42729-7, THYR, 15297-4, CMP, 05595-9, 2156- #### [facility] ([id number]) [address] [place] [address] #### HA1C #### [facility] ([id number]) [address] [place] [address], [address] [place], [place] [address]Njpmdvpzrsa distribution width (RBC) [Ratio]19.3 %High11.5-15.0 [facility] HospitalComment on above:Performed By: #### CBCA, 04594-0, PINR, 42497-9, 34164-1, 56095-8, 18289-7, THYR, 31747-9, CMP, 08591-9, 2156-6 #### [facility] ([id number]) [address] [place] [address] #### HA1C #### [facility] ([id number]) [address], [address] [place], [place] [address]CUHHHEHT1+AbnormalNONEProMedica Coram HospitalComment on above: Performed By: #### CBCA, 24945-5, PINR, 16092-5, 95541-6, 17691-5, 67841-8, THYR, 88508-6, CMP, 31269-9, 2156- #### [facility] ([id number]) [address] [place] [address] #### HA1C #### [facility] ([id number]) [address], [address] [place], [place] [address]Fjiqpufkqr (Bld) [Volume fraction]29.9 %Vqd09-29OfpQxdumu [place]edo HospitalComment on above:Performed By: #### CBCA, 54374-6, PINR, 74152-9, 25067- 7, 93070-2, 72864-1, THYR, 06806-1, CMP, 71443-8, 2156- #### [facility] ([id number]) [address] [place] [address] #### HA1C #### [facility] ([id number]) [address], [address] [place], [place] [address]Eppfoiujqx (Bld) [Mass/Vol]10.0 g/dLLow13.0-17.0ProAcmc Healthcare Systemca Coram HospitalComment on above:Performed By: #### CBCA, 58712-0, PINR, 94562-7, 93276-3, 75225-7, 23361-7, THYR, 08039-8, CMP, 06343-5, 2157-6 #### [facility] ([id number]) [address] [place] [address] #### HA1C #### [facility] ([id number]) [address] [place] [address], [address] [place], [place] [address]WBYQAM-XOWDR BODY1+AbnormalNONEProMedica Coram HospitalComment on above:Performed By: #### CBCA, 06462-7, PINR, 57226-4, 82377-0, 12299-2, 12454-3, THYR, 12233-6, CMP, 67138-5, 2157-6 #### [facility] ([id number]) [address] [place] [address] #### EVERARDO1C #### [facility] ([id number]) [address] [place] [address], [address] [place], [place] [address]IBQONKWNRXL0+AbnormalNONEProMedica Coram HospitalComment on above:Performed By: #### CBCA, 48555-9, PINR, 05533-7, 08072-0, 00189-6, 40497- 4, THYR, 56336-0, CMP, 69484-7, 2156-6 #### [facility] ([id number]) [address] [place] [address] #### HA1C #### [facility] ([id number]) [address] [place] [address], [address] [place], [place] [address]Yhichipaobv (Bld) [#/Vol]1.9 10*3/uLNormal1.0-3.5Pro[facility]ica Coram HospitalComment on above:Performed By: #### CBCA, 81874-9, PINR, 03693-8, 93650-6, 30105-5, 70511-5, THYR, 31067-8, CMP, 05182-3, 2157-6 #### [facility] ([id number]) [address] [place] [address] #### HA1C #### [facility] ([id number]) [address], [address] [place], [place] [address]Usbtkwkjuqu/100 WBC (Bld)23.0 %NormalSouthview Medical Center Comment on above:Performed By: #### CBCA, 28452-6, PINR, 01562-0, 23016-6, 59190-5, 24560-9, THYR, 74243-2, CMP, 00571-5, 2156-6 #### [facility] ([id number]) [address] [place] [address] #### HA1C #### [facility] ([id number]) [address], [address] [place], [place] [address]RIE (RBC) [Entitic mass]24.8 bfSxf37-06VzdTxeimiSouthview Medical Center Comment on above:Performed By: #### CBCA, 57801-1, PINR, 92055-9, 94979-6, 12675-2, 57485-0, THYR, 72428-8, CMP, 51666-4, 2156-6 #### [facility] ([id number]) [address] [place] [address] #### HA1C #### [facility] ([id number]) [address], [address] [place], [place] [address]FDBL (RBC) [Mass/Vol]33.4 g/eYOaukyz51-72OxgJmnlnkSouthview Medical CenterComment on above:Performed By: #### CBCA, 62692-2, PINR, 21988-7, 83579- 7, 92638-6, 99395-4, THYR, 06206-9, CMP, 49463-6, 2156-6 #### [facility] ([id number]) [address] [place] [address] #### HA1C #### [facility] ([id number]) [address], [address] [place], [place] [address]WYN (RBC) [Entitic vol]74 zONbc88-364MbfGstzhlSouthview Medical Center Comment on above:Performed By: #### CBCA, 51009-9, PINR, 32185-7, 11803-1, 16237-6, 58436-3, THYR, 95598-0, CMP, 68567-3, 2157-6 #### [facility] ([id number]) [address] [place] [address] #### HA1C #### [facility] ([id number]) [address] [facility], [address] [place], [place] [address]Pzmpxrknd (Bld) [#/Vol]0.6 10*3/uLNormal0-0.9Southview Medical CenterComment on above:Performed By: #### CBCA, 02414-0, PINR, 34102-2, 48746- 7, 22761-4, 88894-8, THYR, 31975-6, CMP, 80454-7, 7-6 #### [facility] ([id number]) [address] [place] [address] #### HA1C #### [facility] ([id number]) [address] [facility] [facility], [address] [place], [place] [address]Buucdaffu/100 WBC (Bld)7.0 %NormalProCleveland Clinic Comment on above:Performed By: #### CBCA, 50408-2, PINR, 84554-8, 73840-9, 57169-9, 45366-6, THYR, 35160-1, CMP, 92579-7, 2156-6 #### [facility] ([id number]) [address] [place] [address] #### HA1C #### [facility] ([id number]) [address], [address] [place], [place] [address]Givsheyygcp (Bld) [#/Vol]5.1 10*3/uLNormal1.5-6.6Pro[facility]ica Stiles HospitalComment on above:Performed By: #### CBCA, 34900-8, PINR, 21882-1, 43638-0, 15898-6, 47420-1, THYR, 31172-1, CMP, 34974-1, 2157-6 #### [facility] ([id number]) [address] [place] [address] #### HA1C #### [facility] ([id number]) [address], [address] [place], [place] [address]Svfvrord mean volume (Bld) [Entitic vol]10.1 fLNormal7-12 [facility] HospitalComment on above:Performed By: #### CBCA, 75109-9, PINR, 68310-7, 65282-7, 95662-5, 93558-2, THYR, 36854-2, CMP, 12924-0, 2157-6 #### [facility] ([id number]) [address] [place] [address] #### HA1C #### [facility] ([id number]) [address], [address] [place], [place] [address]Oyuaohleg (Bld) [#/Vol]228 10*3/fVHhwbwe511-325EczPlxkfj Coram HospitalComment on above:Performed By: #### CBCA, 31178-4, PINR, 08498-6, 83975- 7, 27716-9, 67874-7, THYR, 90811-6, CMP, 73304-1, 2157-6 #### [facility] ([id number]) [address] [place] [address] #### HA1C #### [facility] ([id number]) [address], [address] [place], [place] [address]CCXUZJPERUVGJ0+AbnormalNONEProMedica Stiles HospitalComment on above:Performed By: #### CBCA, 27225-3, PINR, 02091-8, 05641-8, 83844-1, 17702- 4, THYR, 80108-0, CMP, 17380-4, 7-6 #### [facility] ([id number]) [address] [place] [address] #### HA1C #### [facility] ([id number]) [address] [place] [address], [address] [place], [place] [address]LOT COUNT4.03 X10E12/LLow4.10-5.70ProAcmc Healthcare Systemca [facility] Comment on above:Performed By: #### CBCA, 00732-1, PINR, 13278-4, 63840-3, 04981-6, 08902-0, THYR, 89199-0, CMP, 11591-4, 2156-6 #### [facility] ([id number]) [address] [place] [address] #### HA1C #### [facility] ([id number]) [address] [place] [address], [address] [place], [place] [address]KUE XWTXEMMXXA19.0 %NormalProCleveland ClinicComment on above:Performed By: #### CBCA, 17960-6, PINR, 23581-2, 40252-8, 23664-8, 80333- 4, THYR, 95887-3, CMP, 30353-9, 2156-6 #### [facility] ([id number]) [address] [place] [address] #### HA1C #### [facility] ([id number]) [address] [place] [address], [address] [place], [place] [address]TKICUBSJUH0+AbnormalNONEProMedica Coram HospitalComment on above:Performed By: #### CBCA, 04923-8, PINR, 70474-0, 36220-4, 01267-5, 55525- 4, THYR, 32295-4, CMP, 03764-6, 2157-6 #### [facility] ([id number]) [address] [place] [address] #### HA1C #### [facility] ([id number]) [address] [place] [address], [address] [place], [place] [address]OOWTTA7+AbnormalNONEProMedica Coram HospitalComment on above: Performed By: #### CBCA, 75586-0, PINR, 98128-8, 97527-1, 46606-9, 87062-2, THYR, 70033-0, CMP, 93316-4, 2157-6 #### [facility] ([id number]) [address] [place] [address] #### HA1C #### [facility] ([id number]) [address] [place] [address], [address] [place], [place] [address]CFB (Bld) [#/Vol]8.2 10*3/uLNormal4.0-11.0ProMedica [facility] HospitalComment on above:Performed By: #### CBCA, 69090-5, PINR, 94011-5, 17607- 7, 13403-0, 79460-1, THYR, 24070-6, CMP, 42103-0, 2157-6 #### [facility] ([id number]) [address] [place] [address] #### HA1C #### [facility] ([id number]) [address] [place] [address], [address] [place], [place] [address]EM [Catalytic activity/Vol]on 72-52-2175JTG8992 U/CVzph06-844 [facility] HospitalComment on above:Performed By: #### CBCA, 52318-2, PINR, 92457-6, 86017-3, 73955-3, 74942-7, THYR, 91605-3, CMP, 65527-1, 2157-6 #### [facility] ([id number]) [address] [place] [address] #### HA1C #### [facility] ([id number]) [address] [place] [address], [address] [place], [place] [id number] U/VDuxh44-545UrjRixoteCleveland ClinicComment on above: Performed By: #### CBCA, 50849-9, PINR, 53193-8, 02990-5, 92027-9, 18639-9, THYR, 13339-7, CMP, 79423-0, 2157-6 #### [facility] ([id number]) [address] [place] [address] #### HA1C #### [facility] ([id number]) [address] [place] [address], [address] [place], [place] [id number] U/UXour53-765GnsEcceisCleveland ClinicComment on above: Performed By: #### CBCA, 27262-0, PINR, 76095-8, 38581-5, 20465-0, 40356-9, THYR, 13925-3, CMP, 80735-5, 2157-6 #### [facility] ([id number]) [address] [place] [address] #### HA1C #### [facility] ([id number]) [address] [place] [address], [address] [place] [id number] METABOLIC PANELon 96-92-8656Umqluqw [Mass/Vol]3.4 g/dLNormal3.2-5.3ProMedica [facility]omerene HospitalCommunson healthcare [facility] on above:Performed By: #### CBCA, 25315-9, PINR, 66911-2, 26044-1, 78445-3, 27658-3, THYR, 65543-7, CMP, 58022-9, 2157-6 #### [facility] ([id number]) [address] [place] [address] #### HA1C #### [facility] ([id number]) [address], [address] [place], [place] [address]QNS [Catalytic activity/Vol]109 U/FOpmdni76-254VktQsdrfo [facility] HospitalComment on above:Performed By: #### CBCA, 37341-7, PINR, 54397-1, 36272- 7, 97533-7, 17398-6, THYR, 67178-7, CMP, 19905-7, 2157-6 #### [facility] ([id number]) [address] [place], [place] [address] #### HA1C #### [facility] ([id number]) [address] [facility] [facility], [address] [place], [place] [address]XIW [Catalytic activity/Vol]27 U/LNormal0-40ProMedica [facility]am HospitalComment on above:Performed By: #### DARRELLA, 64152-6, PINR, 81011-4, 47305- 7, 18127-7, 26659-7, THYR, 25553-9, CMP, 45192-4, 2157-6 #### [facility] ([id number]) [address] [place], [place] [address] #### HA1C #### [facility] ([id number]) [address], [address] [place], [place] [address]Dvhsp gap [Moles/Vol]10 mmol/LNormal5-15ProMedica [facility]am HospitalComment on above:Performed By: #### CBCA, 83601-5, PINR, 74665-1, 67993- 7, 55128-1, 44170-8, THYR, 96026-4, CMP, 00119-0, 2157-6 #### [facility] ([id number]) [address] [place], [place] [address] #### HA1C #### [facility] ([id number]) [address], [address] [place], [place] [address]LNQ [Catalytic activity/Vol]69 U/LHigh0-41ProCleveland ClinicComment on above:Performed By: #### WILLIAM, 83419-0, PINR, 27336-6, 27956- 7, 43577-0, 82983-3, THYR, 10073-3, CMP, 59453-5, 2157-6 #### [facility] ([id number]) [address] [place] [address] #### HA1C #### [facility] ([id number]) [address] [place] [address], [address] [place], [place] [address]Zaunejigv [Mass/Vol]0.6 mg/dLNormal0.3-1.2PLancaster Municipal HospitalComment on above:Performed By: #### WILLIAM, 22561-9, PINR, 30399-5, 85415- 7, 85217-0, 24780-2, THYR, 72637-8, CMP, 59771-2, 7-6 #### [facility] ([id number]) [address] [place] [address] #### HA1C #### [facility] ([id number]) [address] [place] [address], [address] [place], [place] [address]Zsxvqik [Mass/Vol]8.2 mg/dLLow8.5-10.5PLancaster Municipal Hospital Comment on above:Performed By: #### WILLIAM, 50955-3, PINR, 20640-3, 74318-1, 85158-7, 62212-5, THYR, 28017-1, CMP, 03026-3, 2157-6 #### [facility] ([id number]) [address] [place] [address] #### HA1C #### [facility] ([id number]) [address] [place] [address], [address] [place], [place] [address]Oxrloqdr [Moles/Vol]105 mmol/JHxhowm72-586WkdDxfjmj [facility]edo HospitalComment on above:Performed By: #### CBCA, 31519-8, PINR, 55937-3, 65181- 7, 46848-0, 74263-5, THYR, 87668-9, CMP, 10726-2, 2156-6 #### [facility] ([id number]) [address] [place] [address] #### HA1C #### [facility] ([id number]) [address] [place] [address], [address] [place], [place] [address]PS0 [Moles/Vol]20 mmol/ZXbi89-16FjuZfdwdx Coram HospitalComment on above:Performed By: #### CBCA, 98552-3, PINR, 83755-4, 11467-2, 89611-6, 30045-9, THYR, 76091-9, CMP, 19699-4, 2156-6 #### [facility] ([id number]) [address] [place] [address] #### HA1C #### [facility] ([id number]) [address] [place] [address], [address] [place], [place] [address]Eawlatkroi [Mass/Vol]0.79 mg/dLNormal0.60-1.30ProCleveland ClinicComment on above:Result Comment: METHOD TRACEABLE TO IDMS STANDARD Performed By: #### CBCA, 79592-0, PINR, 60960-3, 82650-9, 05302-6, 04657-5, THYR, 33987-3, CMP, 27119-7, 2156- #### [facility] ([id number]) [address] [place] [address] #### HA1C #### [facility] ([id number]) [address] [place] [address], [address] [place], [place] [address]EUQ/1.73 sq M.predicted among non-blacks MDRD (S/P/Bld) [Vol rate/Area]87 mL/min/{1.73_m2}Normal>59ProMedica Coram HospitalComment on above: Result Comment: Reported eGFR is based on the CKD-EPI 2020 equation that does not use a race coefficient.Performed By: #### WILLIAM, 31791-5, PINR, 67907-9, 98489-9, 96554-6, 29471-6, THYR, 41333-4, CMP, 57318-4, 215-6 #### [facility] ([id number]) [address] [place] [address] #### HA1C #### [facility] ([id number]) [address], [address] [place], [place] [address]Vxeemep [Mass/Vol]189 mg/cIByhx38-32IpnYkjvyxSouthview Medical Center Comment on above:Performed By: #### WILLIAM, 17158-1, PINR, 42737-6, 05120-7, 69692-8, 50919-0, THYR, 69362-7, CMP, 64308-1, 2156- #### [facility] ([id number]) [address] [place] [address] #### HA1C #### [facility] ([id number]) [address], [address] [place], [place] [address]Yaachpldl [Moles/Vol]4.3 mmol/LNormal3.5-5.0Southview Medical CenterComment on above:Performed By: #### WILLIAM, 57879-9, PINR, 91188-4, 72146- 7, 58703-1, 14155-1, THYR, 94916-2, CMP, 03047-0, 2156- #### [facility] ([id number]) [address] [place] [address] #### HA1C #### [facility] ([id number]) [address], [address] [place], [place] [address]Rxofirr [Mass/Vol]6.1 g/dLNormal6.0-8.0[facility] Comment on above:Performed By: #### CBCA, 46788-3, PINR, 49809-7, 81225-8, 45708-2, 76229-2, THYR, 46493-6, CMP, 76380-2, 2156-6 #### [facility] ([id number]) [address] [place] [address] #### HA1C #### [facility] ([id number]) [address] [facility], [address] [place], [place] [address]Qwpgbn [Moles/Vol]135 mmol/VQthvso692-298WziQpfggu Toledo HospitalComment on above:Performed By: #### CBCA, 27523-4, PINR, 89322-2, 46984- 7, 40318-9, 16727-5, THYR, 77714-0, CMP, 21866-2, 2156- #### [facility] ([id number]) [address] [place] [address] #### HA1C #### [facility] ([id number]) [address] [place] [address], [address] [place], [place] [address]Tsen nitrogen [Mass/Vol]21 mg/dLNormal5-27ProCleveland ClinicComment on above:Performed By: #### CBCA, 86618-3, PINR, 59368-1, 40313- 7, 93459-0, 33003-2, THYR, 75980-3, CMP, 80922-7, 2156- #### [facility] ([id number]) [address] [place] [address] #### HA1C #### [facility] ([id number]) [address] [place] [address], [address] [place], [place] [address]Mzbqosr Glucometer (BldC) [Mass/Vol]on 93-34-2106Ozxiqzh [Mass/Vol]155 mg/wIDdqv30-71EsbSwnvkuCleveland ClinicGlucose [Mass/Vol]238 mg/dL Yueb40-95MnqWraugg Stiles HospitalGlucose [Mass/Vol]413 mg/dLCritically high 65-99Southview Medical CenterGlucose [Mass/Vol]218 mg/iOTeft76-49NazDqlmrcSouthview Medical CenterHeparin unfractionated Chromogenic method Qn (PPP)on 01-22-2024 ANTI XA UFH0.28 IU/mLLow0.30-0.70Southview Medical CenterComment on above: Result Comment: Optimal time for testing is 6 hrs post dosage This test is specific for monitoring patients on UFH, and is not recommended for use with other Anti-Xa medications.Performed By: #### CBCA, 84895-7, PINR, 63083-5, 83498-2, 01891-4, 30024-1, THYR, 47342-3, CMP, 68608-0, 2156-6 #### [facility] ([id number]) [address] [place] [address] #### HA1C #### [facility] ([id number]) [address] [place] [address], [address] [address]DXZZ XA UFH0.24 IU/mLLow0.30-0.70[facility] Comment on above:Result Comment: Optimal time for testing is 6 hrs post dosage This test is specific for monitoring patients on UFH, and is not recommended for use with other Anti-Xa medications.Performed By: #### CBCA, 28356-8, PINR, 67255-3, 88346-8, 20636-3, 55973-8, THYR, 19209-8, CMP, 62734-1, 2156-6 #### [facility] ([id number]) [address] [place] [place] [address] #### HA1C #### [facility] ([id number]) [address] [place] [address], [address] [place] [address]AXKB XA UFH0.23 IU/mLLow0.30-0.70[facility] Comment on above:Result Comment: Optimal time for testing is 6 hrs post dosage This test is specific for monitoring patients on UFH, and is not recommended for use with other Anti-Xa medications.Performed By: #### DARRELLA, 80911-1, PINR, 68164-3, 91602-8, 73961-8, 02868-5, THYR, 73778-6, CMP, 94618-1, 2157-6 #### [facility] ([id number]) [address] [place] [address] #### HA1C #### [facility] ([id number]) [address] [place] [address], [address] [place], [place] [address]Kupzo 1996 panelon 99-10-5725Adbkyhfsved [Mass/Vol]97 mg/dLLow 150-200ProCleveland ClinicComment on above:Performed By: #### WILLIAM, 65911- 5, PINR, 46201-3, 36333-7, 84774-0, 49681-0, THYR, 86250-8, CMP, 16365-7, 2156- #### [facility] ([id number]) [address] [place] [address] #### HA1C #### [facility] ([id number]) [address] [place] [address], [address] [place], [place] [address]Mcftthdprrk in HDL [Mass/Vol]50 mg/dLNormal>39ProCleveland ClinicComment on above:Result Comment: HDL <40 mg/dL - High Risk HDL > or = 40mg/dL- Desirable HDL >60 mg/dL - Negative Risk Performed By: #### DARRELLA, 16549-1, PINR, 77814-3, 47232-3, 40519-8, 09269-0, THYR, 77080-9, CMP, 41757-8, 7-6 #### [facility] ([id number]) [address] [place] [address] #### HA1C #### [facility] ([id number]) [address] [place] [address], [address] [place], [place] [address]Hbhgimmwufq in LDL [Mass/Vol]39 mg/dLNormal<130ProCleveland ClinicComment on above:Result Comment: LDL <100 mg/dL - Desirable LDL >160 mg/dL - High Risk Performed By: #### WILLIAM, 64976-8, PINR, 29117-1, 50435-8, 82557-3, 72802-4, THYR, 53812-0, CMP, 09376-9, 7-6 #### [facility] ([id number]) [address] [place] [address] #### HA1C #### [facility] ([id number]) [address] [place] [address], [address] [place], [place] [address]Osyawxuetrd in VLDL [Mass/Vol]8 mg/dLNormal0-30ProCleveland ClinicComment on above:Performed By: #### WILLIAM, 11985-9, PINR, 93412-2, 56199- 7, 99973-8, 13822-2, THYR, 12425-6, CMP, 14487-6, 2157-6 #### [facility] ([id number]) [address] [place] [address] #### HA1C #### [facility] ([id number]) [address] [place] [address], [address] [place], [place] [address]HIGOHBEGNQL:HDL1.5Erazbq1.0-5.0ProCleveland ClinicComment on above:Performed By: #### WILLIAM, 92490-4, PINR, 89779-7, 34657-8, 30984-9, 49417-7, THYR, 57064-1, CMP, 00070-1, 2157-6 #### [facility] ([id number]) [address] [place] [address] #### HA1C #### [facility] ([id number]) [address], [address] [place], [place] [address]Uqxshojhyjmr [Mass/Vol]38 mg/zXHunpzp24-496HuxEclvou Coram HospitalComment on above:Performed By: #### CBCA, 17895-7, PINR, 17096-1, 28714- 7, 40331-5, 16561-0, THYR, 47921-8, CMP, 46890-3, 2156-6 #### [facility] ([id number]) [address] [place] [address] #### HA1C #### [facility] ([id number]) [address], [address] [place], [place] [address]ZJJCXIUNLql 07-34-6766Xwafmnqdw [Mass/Vol]2.0 mg/dLNormal1.8-2.6 Pro[facility]ica Coram HospitalComment on above:Performed By: #### CBCA, 46767-6, PINR, 42035-0, 66128-5, 18109-1, 24616-4, THYR, 13702-4, CMP, 27765-4, 2156-6 #### [facility] ([id number]) [address] [place] [address] #### HA1C #### [facility] ([id number]) [address], [address] [place], [place] [address]Xebqqsddy [Mass/Vol]2.2 mg/dLNormal1.8-2.6ProMedica Coram HospitalComment on above:Performed By: #### CBCA, 44222-2, PINR, 92243-0, 90920- 7, 84528-6, 66437-6, THYR, 37892-7, CMP, 85400-8, 7-6 #### [facility] ([id number]) [address] [place] [address] #### HA1C #### [facility] ([id number]) [address] [place] [address], [address] [place] [address]Zksvcbgkxiqrr [place] [Mass/Vol]on 17-88-6981RJJWVWRLCTAYZ4.08 ng/mL High<0.05ProCleveland ClinicComment on above:Result Comment: NOTE <0.50 ng/mL - Low risk of severe sepsis and/or septic shock. <2.00 ng/mL - Recommend retesting within 6-24 hours. >2.00 ng/mL - High risk of sepsis and/or septic shock.Performed By: #### CBCA, 99222-0, PINR, 63970-7, 58252-2, 64294-3, 02493-6, THYR, 14208-5, CMP, 28613-3, 2156-6 #### [facility] ([id number]) [address] [place] [address] #### HA1C #### [facility] ([id number]) [address] [place] [address], [address] [address]Okqefxxg I.cardiac High sensitivity method [Mass/Vol]on 43 HOUR TROP I, HIGH TPPJYJVBGWT81 ng/LHigh<21[facility] Comment on above:Result Comment: Elevations of hs-Troponin may be due to causes other than myocardial ischemia. Recommend serial hs-Troponin testing be performed. For the initial evaluation and management of chest pain patients, refer to the algorithms linked below. Emergency Patient: [email or web address]/[email or web address]=acaea Inpatient: [email or web address]/[email or web address]&[email or web address]&uh=acaeaPerformed By: #### CBCA, 89323-7, PINR, 53934-3, 91764-4, 16201-7, 35510-1, THYR, 71616- 1, CMP, 22128-6, 2157-6 #### [facility] ([id number]) [address] [place] [address] #### HA1C #### [facility] ([id number]) [address], [address] [place], [place] [address] HOUR TROP I, HIGH BZIPRYRWYQY56 ng/LHigh<21ProMedica Pomerene HospitalComment on above:Result Comment: Elevations of hs-Troponin may be due to causes other than myocardial ischemia. Recommend serial hs-Troponin testing be performed. For the initial evaluation and management of chest pain patients, refer to the algorithms linked below. Emergency Patient: [email or web address].[email or web address]/dl.aspx?[email or web address]&uh=acaea Inpatient: [email or web address].[email or web address].[email or web address]/dl.[email or web address]?[email or web address]&m=11885&uh=acaeaPerformed By: #### CBCA, 25277-9, PINR, 88201-5, 22959-5, 82270-0, 91631-8, THYR, 02606- 1, CMP, 59272-3, 2157-6 #### [facility] ([id number]) [address] [place] [address] #### HA1C #### [facility] ([id number]) [address], [address] [place], [place] [address]OV WRIST LT MIN 3 VWSon 73-26-7096DZ WRIST LT MIN 3 VWSXR WRIST LT [...] Liam Cody MD on 01/22/2024 10:33 PMNormalProMedica Coram HospitalBLOOD CULTUREon 87-63-9924Hhwllfuz identified Aer cx Nom (Bld)CULTURE RESULTS NO GROWTH 5 DAYSNormalProCleveland ClinicBacteria identified Aer cx Nom (Bld)CULTURE RESULTS NO GROWTH 5 DAYSNormalProCleveland ClinicCBC AND AUTO DIFFon 01-21-2024 ABSOLUTE BASOPHIL0.1 X10E9/LNormal0.0-0.2ProMedica Pomerene HospitalComment on above:Performed By: #### CBCA, 38549-7, PINR, 76366-8, 26575-0, 79632-7, 11673- 4, THYR, 22733-0, CMP, 34692-3, 2157-6 #### [facility] ([id number]) [address] [place] [address] #### HA1C #### [facility] ([id number]) [address] [place] [address], [address] [place] [address]MDGDLBSY NEUTROPHIL7.7 X10E9/LHigh1.5-6.6ProMediAdena Fayette Medical CenterComment on above:Performed By: #### CBCA, 89538-5, PINR, 23961-1, 09694- 7, 30934-9, 15416-9, THYR, 22087-2, CMP, 22079-6, 2157-6 #### [facility] ([id number]) [address] [place] [address] #### HA1C #### [facility] ([id number]) [address] [place] [address], [address] [place], [place] [address]Vhuyofoxmbhb Ql (Bld)2+AbnormalNONEPLancaster Municipal Hospital Comment on above:Performed By: #### CBCA, 47759-2, PINR, 35054-5, 73453-6, 78886-0, 45886-0, THYR, 09098-9, CMP, 97973-6, 2157-6 #### [facility] ([id number]) [address] [place] [address] #### HA1C #### [facility] ([id number]) [address], [address] [place], [place] [address]Czutrsoiv/100 WBC (Bld)0.8 %NormalProCleveland Clinic Comment on above:Performed By: #### CBCA, 88892-9, PINR, 01428-8, 01879-1, 26915-9, 28672-0, THYR, 60969-2, CMP, 98601-2, 2157-6 #### [facility] ([id number]) [address] [place] [address] #### HA1C #### [facility] ([id number]) [address], [address] [place], [place] [address]TZLT8+AbnormalNONEPEast [facility] HospitalComment on above: Performed By: #### CBCA, 16206-8, PINR, 46386-8, 05951-1, 97512-4, 09734-0, THYR, 05651-2, CMP, 42994-1, 2157-6 #### [facility] ([id number]) [address] [place], [place] [address] #### HA1C #### [facility] ([id number]) [address], [address] [place], [place] [address]Oupfaakorjs (Bld) [#/Vol]0.1 10*3/uLNormal0.0-0.4ProCleveland ClinicComment on above:Performed By: #### CBCA, 20354-4, PINR, 75359-9, 94212-9, 05431-2, 83034-0, THYR, 46357-1, CMP, 05393-7, 7-6 #### [facility] ([id number]) [address] [place] [address] #### HA1C #### [facility] ([id number]) [address], [address] [place], [place] [address]Pwahmnvdape/100 WBC (Bld)0.7 %NormalProMedica Pomerene Hospital Comment on above:Performed By: #### CBCA, 00066-3, PINR, 25169-5, 64814-6, 28067-1, 63519-3, THYR, 69940-8, CMP, 14857-1, 2156-6 #### [facility] ([id number]) [address] [place] [address] #### HA1C #### [facility] ([id number]) [address], [address] [place], [place] [address]Cnlpppybish distribution width (RBC) [Ratio]19.9 %High11.5-15.0 [facility]ome[facility] HospitalComment on above:Performed By: #### CBCA, 17318-9, PINR, 47660-9, 15907-3, 33988-6, 92344-1, THYR, 58015-0, CMP, 00053-8, 2156-6 #### [facility] ([id number]) [address] [place] [address] #### HA1C #### [facility] ([id number]) [address] [place] [address], [address] [place], [place] [address]KZJJSPHD0+AbnormalNONEProMedica Pomerene HospitalComment on above: Performed By: #### CBCA, 57871-1, PINR, 55792-8, 42367-1, 52829-8, 60989-9, THYR, 73009-2, CMP, 88200-0, 2157-6 #### [facility] ([id number]) [address] [place] [address] #### HA1C #### [facility] ([id number]) [address], [address] [place], [place] [address]Udbnjrncru (Bld) [Volume fraction]31.3 %Ecf02-11LndXdfeoh [place]edo HospitalComment on above:Performed By: #### CBCA, 02660-9, PINR, 81110-8, 56172- 7, 15722-2, 31001-6, THYR, 17707-5, CMP, 36365-2, 2156-6 #### [facility] ([id number]) [address] [place] [address] #### HA1C #### [facility] ([id number]) [address], [address] [place], [place] [address]Mpnorjvisd (Bld) [Mass/Vol]10.5 g/dLLow13.0-17.0ProZanesville City Hospital HospitalComment on above:Performed By: #### CBCA, 72574-9, PINR, 60276-3, 68702-7, 04708-0, 14082-8, THYR, 72863-2, CMP, 56590-6, 2156- #### [facility] ([id number]) [address] [place] [address] #### HA1C #### [facility] ([id number]) [address], [address] [place], [place] [address]BKBOMMECMXV1+AbnormalNONEProMedica Coram HospitalComment on above:Performed By: #### CBCA, 22732-2, PINR, 73615-3, 44100-0, 17368-8, 36992- 4, THYR, 80114-9, CMP, 86051-3, 2156- #### [facility] ([id number]) [address] [place] [address] #### HA1C #### [facility] ([id number]) [address] [place] [address], [address] [place], [place] [address]Wuksboqxlpx (Bld) [#/Vol]1.2 10*3/uLNormal1.0-3.5ProMedica Pomerene HospitalComment on above:Performed By: #### CBCA, 41236-0, PINR, 05959-9, 91786-6, 53186-1, 23706-6, THYR, 26417-6, CMP, 90541-2, 2157-6 #### [facility] ([id number]) [address] [place] [address] #### HA1C #### [facility] ([id number]) [address] [place] [address], [address] [place], [place] [address]Hlbdrzaubal/100 WBC (Bld)11.9 %NormalSouthview Medical Center Comment on above:Performed By: #### CBCA, 91057-8, PINR, 51511-9, 94103-2, 37550-3, 70437-7, THYR, 60257-2, CMP, 22835-5, 2157-6 #### [facility] ([id number]) [address] [place] [address] #### HA1C #### [facility] ([id number]) [address] [place] [address], [address] [place], [place] [address]YLY (RBC) [Entitic mass]24.8 abBrk80-50CbbStosonSouthview Medical Center Comment on above:Performed By: #### CBCA, 38441-4, PINR, 86963-8, 79162-2, 26382-6, 77127-8, THYR, 86547-1, CMP, 68004-1, 2157-6 #### [facility] ([id number]) [address] [place] [address] #### HA1C #### [facility] ([id number]) [address], [address] [place], [place] [address]JDBK (RBC) [Mass/Vol]33.6 g/tPQxakix37-26UagYrhims [place] HospitalComment on above:Performed By: #### CBCA, 10888-6, PINR, 51364-8, 09053- 7, 27050-9, 79502-0, THYR, 41888-0, CMP, 14382-9, 2157-6 #### [facility] ([id number]) [address] [place] [address] #### HA1C #### [facility] ([id number]) [address], [address] [place], [place] [address]THB (RBC) [Entitic vol]74 mKZuy30-305UnbGxigkk [facility] Comment on above:Performed By: #### CBCA, 71393-3, PINR, 76921-2, 58911-5, 70613-3, 37004-5, THYR, 38650-8, CMP, 59175-6, 2157-6 #### [facility] ([id number]) [address] [place] [address] #### HA1C #### [facility] ([id number]) [address], [address] [place], [place] [address]Iasuwuuqb (Bld) [#/Vol]1.2 10*3/uLHigh0-0.9ProCleveland ClinicComment on above:Performed By: #### CBCA, 97368-1, PINR, 58662-7, 88235- 7, 84977-5, 13488-1, THYR, 38589-3, CMP, 83876-7, 2157-6 #### [facility] ([id number]) [address] [place] [address] #### HA1C #### [facility] ([id number]) [address], [address] [place], [place] [address]Barfntfdg/100 WBC (Bld)12.0 %[facility] Comment on above:Performed By: #### CBCA, 93204-6, PINR, 24909-4, 98047-7, 47762-0, 55237-0, THYR, 34519-5, CMP, 13911-6, 2157-6 #### [facility] ([id number]) [address] [place] [address] #### HA1C #### [facility] ([id number]) [address], [address] [place], [place] [address]Uugjjqskpij/100 WBC (Bld)74.6 %[facility] Comment on above:Performed By: #### CBCA, 66620-3, PINR, 33929-1, 52368-9, 10442-8, 09172-2, THYR, 83925-0, CMP, 92615-1, 7-6 #### [facility] ([id number]) [address] [place] [address] #### HA1C #### [facility] ([id number]) [address], [address] [place], [place] [address]Kkochdvd mean volume (Bld) [Entitic vol]10.1 fLNormal7-12 ProMCleveland Clinic Lutheran HospitalComment on above:Performed By: #### CBCA, 55713-6, PINR, 90208-3, 97247-8, 59703-1, 80590-8, THYR, 47136-2, CMP, 70535-7, 7-6 #### [facility] ([id number]) [address] [place] [address] #### HA1C #### [facility] ([id number]) [address], [address] [place], [place] [address]Mjuyziwzw (Bld) [#/Vol]252 10*3/iOLocsyz934-679OyrEckutm Coram HospitalComment on above:Performed By: #### CBCA, 81305-5, PINR, 00884-6, 38717- 7, 22238-7, 93321-7, THYR, 65428-3, CMP, 55954-0, 2157-6 #### [facility] ([id number]) [address] [place] [address] #### HA1C #### [facility] ([id number]) [address] [facility], [address] [place], [place] [address]SVPXCXRDYLMAU2+AbnormalNONEProMedica Coram HospitalComment on above:Performed By: #### CBCA, 54808-1, PINR, 13799-6, 86117-0, 33409-1, 40526- 4, THYR, 05013-5, CMP, 62744-7, 7-6 #### [facility] ([id number]) [address] [place] [address] #### HA1C #### [facility] ([id number]) [address] [place] [address], [address] [place], [place] [address]YPN COUNT4.24 X10E12/LNormal4.10-5.70[facility] Comment on above:Performed By: #### CBCA, 47200-3, PINR, 53185-8, 65384-9, 80378-5, 54058-0, THYR, 38589-3, CMP, 48886-8, 2157-6 #### [facility] ([id number]) [address] [place] [address] #### HA1C #### [facility] ([id number]) [address] [place] [address], [address] [place], [place] [address]KXXDQD9+AbnormalNONEProMedica Coram HospitalComment on above: Performed By: #### CBCA, 35177-8, PINR, 42229-1, 39408-7, 05412-9, 98247-5, THYR, 04324-9, CMP, 89878-8, 2157-6 #### [facility] ([id number]) [facility] [place] [address] #### HA1C #### [facility] ([id number]) [address], [address] [place], [place] [address]ZCB (Bld) [#/Vol]10.3 10*3/uLNormal4.0-11.0ProMedica Stiles HospitalComment on above:Performed By: #### CBCA, 49801-6, PINR, 77509-4, 18314- 7, 08616-3, 10297-9, THYR, 95344-7, CMP, 30929-0, 2157-6 #### [facility] ([id number]) [address] [place] [address] #### HA1C #### [facility] ([id number]) [address], [address] [place], [place] [address]PX [Catalytic activity/Vol]on 61-76-1498EWO1947 U/SOibp30-213 Pro[facility] Coram HospitalComment on above:Performed By: #### CBCA, 24502-7, PINR, 35328-2, 46524-3, 50222-6, 87551-6, THYR, 26995-9, CMP, 08649-9, 2157-6 #### [facility] ([id number]) [address] [place] [address] #### HA1C #### [facility] ([id number]) [address] [place] [address], [address] [place], [place] [address]DIY[address]89 U/HIulg36-004IymHmyhsj Stiles HospitalComment on above: Performed By: #### CBCA, 35148-8, PINR, 80050-4, 38891-6, 12973-0, 08684-7, THYR, 98648-5, CMP, 49854-4, 2157-6 #### [facility] ([id number]) [address] [place] [address] #### HA1C #### [facility] ([id number]) [address] [place] [address], [address] [place], [place] [address]PTAQJYIGORUVU METABOLIC PANELon 68-85-0443Dhosvpf [Mass/Vol]3.6 g/dLNormal3.2-5.3ProMedica Coram HospitalComment on above:Performed By: #### CBCA, 47905-8, PINR, 69349-9, 91088-8, 01156-9, 05689-2, THYR, 20638-6, CMP, 48386-1, 2157-6 #### [facility] ([id number]) [address] [place] [address] #### HA1C #### [facility] ([id number]) [address] [place] [address], [address] [place], [place] [address]BKJ [Catalytic activity/Vol]118 U/PMrxcct44-759VfjLcdbis [place] HospitalComment on above:Performed By: #### CBCA, 21190-3, PINR, 37793-5, 16492- 7, 49267-6, 25298-3, THYR, 24176-9, CMP, 42153-9, 2157-6 #### [facility] ([id number]) [address] [place] [address] #### HA1C #### [facility] ([id number]) [address] [place] [address], [address] [place], [place] [address]JRS [Catalytic activity/Vol]26 U/LNormal0-40ProMediParkview Health Bryan Hospital HospitalComment on above:Performed By: #### CBCA, 28301-0, PINR, 22031-0, 29156- 7, 75570-2, 54466-1, THYR, 53201-0, CMP, 03074-7, 2157-6 #### [facility] ([id number]) [address] [place] [address] #### HA1C #### [facility] ([id number]) [address] [place] [address], [address] [place], [place] [address]Wdpmn gap [Moles/Vol]9 mmol/LNormal5-15[facility] Comment on above:Performed By: #### CBCA, 35652-7, PINR, 24916-6, 43016-6, 88418-6, 14338-2, THYR, 96794-3, CMP, 97003-8, 2156-12 #### [facility] ([id number]) [address] [place] [address] #### EVERARDO1C #### [facility] ([id number]) [address] [place] [address], [address] [place], [place] [address]DAX [Catalytic activity/Vol]62 U/LHigh0-41ProCleveland ClinicComment on above:Performed By: #### CBCA, 98986-3, PINR, 40640-1, 06694- 7, 95259-8, 98780-9, THYR, 45834-1, CMP, 99469-2, 2156-12 #### [facility] ([id number]) [address] [place] [address] #### HA1C #### [facility] ([id number]) [address] [place] [address], [address] [place], [place] [address]Vpsqsnhvd [Mass/Vol]0.6 mg/dLNormal0.3-1.2ProMedica Pomerene HospitalComment on above:Performed By: #### CBCA, 97387-6, PINR, 05024-2, 62406- 7, 41824-1, 44452-6, THYR, 72195-1, CMP, 49396-7, 2156- #### [facility] ([id number]) [address] [place], [place] [id number] #### HA1C #### [facility] ([id number]) [address], [address] [place], [place] [address]Kiaflpg [Mass/Vol]8.3 mg/dLLow8.5-10.5PLancaster Municipal Hospital Comment on above:Performed By: #### CBCA, 43612-3, PINR, 60650-7, 04410-9, 72052-7, 16816-5, THYR, 18161-2, CMP, 58234-5, 2157-6 #### [facility] ([id number]) [address] [place] [address] #### HA1C #### [facility] ([id number]) [address], [address] [place], [place] [address]Zinkmyql [Moles/Vol]102 mmol/WQfqqxt05-774MdsKxhjwo Pomerene HospitalComment on above:Performed By: #### CBCA, 74632-2, PINR, 78050-9, 60766- 7, 07717-9, 19033-6, THYR, 08103-0, CMP, 07709-1, 2156-6 #### [facility] ([id number]) [address] [place] [address] #### HA1C #### [facility] ([id number]) [address], [address] [place], [place] [address]JT1 [Moles/Vol]22 mmol/NHtxsdg26-92SruEidhztLancaster Municipal Hospital Comment on above:Performed By: #### CBCA, 90838-3, PINR, 73286-5, 10455-2, 64649-6, 02992-3, THYR, 10465-8, CMP, 77519-2, 2156-6 #### [facility] ([id number]) [address] [place] [address] #### HA1C #### [facility] ([id number]) [address], [address] [place], [place] [address]Ibbifsjikz [Mass/Vol]0.83 mg/dLNormal0.60-1.30ProCleveland ClinicComment on above:Result Comment: METHOD TRACEABLE TO IDMS STANDARD Performed By: #### WILLIAM, 84833-3, PINR, 73231-1, 28488-6, 45158-0, 02982-2, THYR, 45295-1, CMP, 45640-5, 7-6 #### [facility] ([id number]) [address] [place] [address] #### HA1C #### [facility] ([id number]) [address] [place] [address], [address] [address]PHQ/1.73 sq M.predicted among non-blacks MDRD (S/P/Bld) [Vol rate/Area]85 mL/min/{1.73_m2}Normal>59ProCleveland ClinicComment on above: Result Comment: Reported eGFR is based on the CKD-EPI 2020 equation that does not use a race coefficient.Performed By: #### WILLIAM, 61065-6, PINR, 70362-3, 04443-7, 68496-6, 64631-1, THYR, 06194-3, CMP, 37593-3, 2156-6 #### [facility] ([id number]) [address] [place] [address] #### HA1C #### [facility] ([id number]) [address] [place] [address], [address] [place], [place] [address]Nrfkqin [Mass/Vol]270 mg/nOLlbz06-92EtlTtfqnxSouthview Medical Center Comment on above:Performed By: #### DARRELLA, 28662-8, PINR, 19387-7, 85146-6, 95975-6, 24711-3, THYR, 93632-8, CMP, 43228-8, 2156-6 #### [facility] ([id number]) [address] [place] [address] #### HA1C #### [facility] ([id number]) [address] [facility], [address] [place], [place] [address]Jbbywredz [Moles/Vol]4.5 mmol/LNormal3.5-5.0Southview Medical CenterComment on above:Performed By: #### CBCA, 28786-3, PINR, 84878-8, 84455- 7, 41263-1, 68999-6, THYR, 23825-7, CMP, 76993-3, 2156-6 #### [facility] ([id number]) [address] [place] [address] #### HA1C #### [facility] ([id number]) [address] [place] [address], [address] [place], [place] [address]Mzpicyj [Mass/Vol]6.4 g/dLNormal6.0-8.0[facility] Comment on above:Performed By: #### CBCA, 00446-9, PINR, 93278-1, 91508-6, 17342-9, 04165-1, THYR, 17739-5, CMP, 55008-2, 2156- #### [facility] ([id number]) [address] [place] [address] #### HA1C #### [facility] ([id number]) [address] [place] [address], [address] [place], [place] [address]Oqaeab [Moles/Vol]133 mmol/MDdd782-245ZnuXcxvueCleveland Clinic Comment on above:Performed By: #### CBCA, 45570-5, PINR, 31054-8, 80552-8, 50396-3, 65224-5, THYR, 95627-3, CMP, 24289-4, 2156- #### [facility] ([id number]) [address] [place] [address] #### HA1C #### [facility] ([id number]) [address], [address] [place], [place] [address]Fxxs nitrogen [Mass/Vol]23 mg/dLNormal5-27ProCleveland ClinicComment on above:Performed By: #### CBCA, 22508-8, PINR, 42734-3, 41374- 7, 19397-1, 43173-9, THYR, 27506-0, CMP, 73641-8, 2157-6 #### [facility] ([id number]) [address] [place] [address] #### HA1C #### [facility] ([id number]) [address], [address] [place], [place] [address]JY CTA CHESTon [id number] CTA CHESTCT CTA CHEST CLINICAL INFORMATION: Pulmonary [...] by Arturo Alvarado MD on 01/21/2024 2:10 PMNormalProCleveland ClinicFibrin D-dimer DDU (PPP) [Mass/Vol]on 01-21-2024 XSNHC1729 ng/mL DDU High<255Southview Medical CenterComment on above:Result Comment: Results >=255ng/mL DDU: Results may be indicative of the presence of VTE. The use of the Wells score and further diagnostic tests should be considered. Elevated D-Dimer levels can also be associated with DIC, neoplasm, , trauma and liver disease. Elevated levels of rheumatoid factor may lead to an overestimation of the D-Dimer level.Performed By: #### CBCA, 63004-8, PINR, 54353-3, 08092-9, 34042-7, 07027-3, THYR, 33877-6, CMP, 36914-7, 2157-6 #### [facility] ([id number]) [address] [place] [address] #### HA1C #### [facility] ([id number]) [address] [place] [address], [address] [place], [place] [address]Ddmpcwg Glucometer (BldC) [Mass/Vol]on 63-97-1024Aanwimg [Mass/Vol]305 mg/xYZkdi94-51EkqMeithgCleveland ClinicGlucose [Mass/Vol]296 mg/dL Fyym15-94RtmJiwajrCleveland ClinicGlucose [Mass/Vol]266 mg/tIXhwv07-59EfcKciayvCleveland ClinicHGB A1C (GLYCO-HGB)on 17-40-6266Lvsbynq [Mass/Vol]229 mg/dLNormal [facility] Medical CenterComment on above:Performed By: #### CBCA, 97894-7, PINR, 22258-0, 32724-5, 88523-9, 85692-2, THYR, 76901-3, CMP, 89157-6, 2157-6 #### [facility] ([id number]) [address] [place] [address] #### HA1C #### [facility] ([id number]) [address] [place] [address], [address] [place], [place] [address]JmS9o (Bld) [Mass fraction]9.6 %High4.4-5.6Southview Medical CenterComment on above:Result Comment: NOTE ADA Guidelines Result HgbA1c Normal : less than 5.7 % Prediabetes : 5.7 % to 6.4 % Diabetes : > 6.4 % Use with caution in patients with abnormal hemoglobin variants as the half-life of red blood cells and in vivo glycation rates are affected.Performed By: #### CBCA, 49199-9, PINR, 31588-4, 50931-1, 86900-2, 06574-8, THYR, 17352-1, CMP, 70437-2, 7-6 #### [facility] ([id number]) [address] [place] [address] #### HA1C #### [facility] ([id number]) [address] [place] [address], [address] [place] [address]Vwyaldi unfractionated Chromogenic method Qn (PPP)on 01-21-2024 ANTI XA UFH0.22 IU/mLLow0.30-0.70Southview Medical CenterComment on above: Result Comment: Optimal time for testing is 6 hrs post dosage This test is specific for monitoring patients on UFH, and is not recommended for use with other Anti-Xa medications.Performed By: #### CBCA, 26708-2, PINR, 42326-9, 89091-7, 78560-5, 01611-2, THYR, 45136-6, CMP, 76901-7, 2156- #### [facility] ([id number]) [address] [place] [address] #### HA1C #### [facility] ([id number]) [address] [place] [address], [address] [place], [place] [address]RJAA XA UFH0.19 IU/mLLow0.30-0.70[facility] Comment on above:Result Comment: Optimal time for testing is 6 hrs post dosage This test is specific for monitoring patients on UFH, and is not recommended for use with other Anti-Xa medications.Performed By: #### CBCA, 75906-7, PINR, 82492-1, 98300-1, 76651-6, 25202-4, THYR, 33885-9, CMP, 94666-6, 2156-6 #### [facility] ([id number]) [address] [place] [address] #### HA1C #### [facility] ([id number]) [address] [place] [address], [address] [place], [place] [address]Xzmlodt (P bobo) [Moles/Vol]on 05-31-4155RDIZDHK W/REFLEX1.2 mmol/LNormal0.4-2.0ProMedica Coram HospitalComment on above:Result Comment: Result did not trigger repeat Lactate, re-order if needed.Performed By: #### WILLIAM, 40794-3, PINR, 37402-7, 06302-9, 89324-1, 57706-0, THYR, 62937-6, CMP, 39227-6, 2156-6 #### [facility] ([id number]) [address] [place] [address] #### HA1C #### [facility] ([id number]) [address] [place] [address], [address] [place], [place] [address]WPPQJJDWCro 15-66-9040Prbpfwgoh [Mass/Vol]1.6 mg/dLLow1.8-2.6 [facility] Pomerene HospitalComment on above:Performed By: #### WILLIAM, 19625-7, PINR, 12801-9, 53278-2, 82410-9, 50192-7, THYR, 78393-4, CMP, 79157-6, 2156-6 #### [facility] ([id number]) [address] [place] [address] #### HA1C #### [facility] ([id number]) [address] [place] [address], [address] [place], [place] [address]Bpnyfloppsf peptide B [Mass/Vol]on 62-51-1659Ehsxwmdtnye peptide B (Bld) [Mass/Vol]1320 pg/mLHigh<100.0ProMedica Coram HospitalComment on above:Performed By: #### WILLIAM, 32999-4, PINR, 33541-6, 07081-0, 69801-4, 77805- 4, THYR, 88414-2, CMP, 70733-7, 2157-6 #### [facility] ([id number]) [facility] [place] [address] #### HA1C #### [facility] ([id number]) [address], [address] [place], [place] [address]RLDPZJE AND INRon 08-42-1428WZB Coag (PPP) [Relative time]1.2 {INR}High0.8-1.1PLancaster Municipal HospitalComment on above:Performed By: #### CBCA, 78809-8, PINR, 87894-0, 46335-5, 32897-3, 53889-6, THYR, 59485-8, CMP, 41684-0, 2157-6 #### [facility] ([id number]) [address] [place] [address] #### HA1C #### [facility] ([id number]) [address], [address] [place], [place] [address]MM Coag (PPP) [Time]14.4 sHigh9.8-13.2PLancaster Municipal Hospital Comment on above:Performed By: #### CBCA, 44854-4, PINR, 91344-6, 93766-1, 54917-3, 00837-9, THYR, 94518-7, CMP, 46376-9, 2157-6 #### [facility] ([id number]) [address] [place] [address] #### HA1C #### [facility] ([id number]) [address], [address] [place], [place] [address]Pbsrdtosnigqf [place] [Mass/Vol]on 54-43-5790CGMEMOOYTQXRA1.06 ng/mL High<0.05ProCleveland ClinicComment on above:Result Comment: NOTE <0.50 ng/mL - Low risk of severe sepsis and/or septic shock. <2.00 ng/mL - Recommend retesting within 6-24 hours. >2.00 ng/mL - High risk of sepsis and/or septic shock.Performed By: #### CBCA, 90164-5, PINR, 57873-0, 95023-9, 24726-8, 24663-8, THYR, 57046-8, CMP, 23846-3, 2157-6 #### [facility] ([id number]) [address] [place] [address] #### HA1C #### [facility] ([id number]) [address] [place] [address], [address] [place], [place] [address]EYUW PATHOGENS/XMVA-DxS-0up 91-77-3365Nihocprwdlb pathogens DNA and RNA panel ANASTASIA+non-probe (Nph)SPECIMEN [...] 2 Not detected (qualifier value) NOTE The [employer] Respiratory Panel 2.1 (RP2.1) is a multiplexed [...] other pathogens. The agent(s) detected by the [employer] RP2.1 may not be the definite cause [...] evaluating a patient with possible respiratory tract infection.NormalProCleveland ClinicComment on above:Performed By: #### CBCA, 88237-1, PINR, 91045-6, 58039- 7, 62222-2, 05819-4, THYR, 08705-8, CMP, 87956-4, 2157-6 #### [facility] ([id number]) [address] [place] [address] #### HA1C #### [facility] ([id number]) [address] [place] [address], [address] [place], [place] [address]UNACJGI PROFILEon 49-89-2635Qxwp T4 [Mass/Vol]1.04 ng/dLNormal 0.61-1.60ProCleveland ClinicComment on above:Performed By: #### CBCA, 58803-0, PINR, 52424-5, 81593-9, 60554-7, 61312-9, THYR, 38398-7, CMP, 60450-5, 2157-6 #### [facility] ([id number]) [address] [place] [address] #### HA1C #### [facility] ([id number]) [address], [address] [place], [place] [address]KJG2.70 uIU/mLNormal0.49-4.67ProCleveland ClinicComment on above:Performed By: #### WILLIAM, 51931-3, PINR, 78819-8, 62254-5, 98591-5, 13593- 4, THYR, 82019-1, CMP, 83013-4, 2157-6 #### [facility] ([id number]) [address] [place] [address] #### HA1C #### [facility] ([id number]) [address], [address] [place], [place] [address]Dndxepah I.cardiac High sensitivity method [Mass/Vol]on 47-14-2241QSWFLXYI I, HIGH TDNYCEYTOPK033 ng/LHigh<21ProCleveland Clinic Comment on above:Result Comment: Elevations of hs-Troponin may be due to causes other than myocardial ischemia. Recommend serial hs-Troponin testing be performed. For the initial evaluation and management of chest pain patients, refer to the algorithms linked below. Emergency Patient: [email or web address]/[email or web address] Inpatient: [email or web address]/[email or web address]&uh=acaeaPerformed By: #### CBCA, 57160-7, PINR, 37982-3, 66767-9, 18470-1, 64253-7, THYR, 13740- 1, CMP, 90703-3, 2157-6 #### [facility] ([id number]) [address] [place] [address] #### HA1C #### [facility] ([id number]) [address] [facility], [address] [place], [place] [address] HOUR TROP I, HIGH FDHPYLAKUVR809 ng/LHigh<21ProCleveland ClinicComment on above:Result Comment: Elevations of hs-Troponin may be due to causes other than myocardial ischemia. Recommend serial hs-Troponin testing be performed. For the initial evaluation and management of chest pain patients, refer to the algorithms linked below. Emergency Patient: [email or web address]://[email or web address]/[email or web address]=[email or web address] Inpatient: [email or web address]/[email or web address]&uh=[email or web address] By: #### CBCA, 80419-0, PINR, 57021-9, 91429-1, 48217-4, 94760-4, THYR, 12368- 1, CMP, 36475-2, 2157-6 #### [facility] ([id number]) [address] [place] [address] #### HA1C #### [facility] ([id number]) [address], [address] [place] [address]IL CHEST 1 VWon 74-95-6186MU CHEST 1 VWXR CHEST 1 VW History: Congestion EXAM: Chest AP portable upright COMPARISON: None FINDINGS: Cardiac silhouette within normal limits. Mild interstitial prominence. No pneumothorax. No infiltrate or large pleural effusion. IMPRESSION: Mild interstitial edema Finalized by Mima Eaton MD on 01/21/2024 1:38 PMNormalProCleveland ClinicaPTT Coag (PPP) [Time]on 76-66-2633pJTJ Coag (Bld) [Time]54 iMpke36-07 [facility] Pomerene HospitalComment on above:Performed By: #### CBCA, 89613-3, PINR, 17419-8, 34805-4, 45652-3, 24689-6, THYR, 50615-5, CMP, 80315-8, 2157-6 #### [facility] ([id number]) [address] [place] [address] #### HA1C #### [facility] ([id number]) [address] [place] [address], [address] [place], [place] [address]SA Cervical spine WO contraston 80-56[place] [address] Magnetic Resonance Report Signed Patient: MANOLO ROCHE MR#: [id number] : 1935 Acct:[id number] Age/Sex: 88 / M ADM Date: 12/27/23 Loc: MRI Attending Dr: Non-Staff Physician Mikel Ordering Physician: Jones MortonStaff Mikel Date of Service: 12/27/23 Procedure(s): MR cervical spine wo con Accession Number(s): [id number] cc: Physician,Non-Staff Mikel; MARIE TEJEDA [place] [address] Patient Name: MANOLO ROCHE MRN: [id number] date: 1935 Sex: M Assigned Patient Location: MRI Current Patient Location: Accession/Order Number: [id number] Exam Date: 12/27/2023 09:55 Report Date: 12/28/2023 [...] Guzman M.D. Signed By: 12/28/2336 DD/ TD/TT: Production Internship:TBHRadiology, Radiologist, MD - 12/28/2023 [place] [address] Magnetic Resonance Report Signed Patient: MANOLO ROCHE MR#: [id number] : 1935 Acct:[id number] Age/Sex: 88 / M ADM Date: 12/27/23 Loc: MRI Attending Dr: Non-Staff Physician Morin Ordering Physician: Maci Morton M.D. Date of Service: 12/27/23 Procedure(s): MR cervical spine wo con Accession Number(s): [id number] cc: Physician,Non-Staff MBrandon; MARIE TEJEDA [place] [address] Patient Name: MANOLO ROCHE MRN: [id number] date: 1935 Sex: M Assigned Patient Location: MRI Current Patient Location: Accession/Order Number: [id number] Exam Date: 12/27/2023 09:55 Report Date: 12/28/2023 [...] M.D. Signed By: 12/28/23935 DD/ 3 TD/TT: Production Internship: NETO [facility] HospitalRadiology Study observation (narrative)[facility] Cervical spine WO contrastOrdered By: Radiologist Radiology on 65-26-7676RZJLHannibal Regional Hospital Work Phone: Glucose Glucometer (BldC) [Mass/Vol]Ordered By: Alberto Shearer on 50-97-7685Ljowobj [Mass/Vol]83 mg/dLUniversity Hospitals Tripoint [facility] Center Comment on above:Random Glucose Reference Range is dependent on time and content of last meal. Glucose of more than 200 mg/dL in a nonstressed, ambulatory subject supports the diagnosis of Diabetes Mellitus.No Panel InformationOrdered By: Alberto Shearer on 34-43-8979Hfgrbdm Glucose CommentGlu2: cleaned [facility] CenterBedside Glucose #2 CommentCleaned [facility] Medical CenterGlucose Glucometer (BldC) [Mass/Vol]Ordered By: Yomi Meeks on 19-31-6213Wlxuptu [Mass/Vol]71 mg/dLUniversity Hospitals Tripoint Medical CenterComment on above:Random Glucose Reference Range is dependent on time and content of last meal. Glucose of more than 200 mg/dL in a nonstressed, ambulatory subject supports the diagnosis of Diabetes Mellitus.Glucose Glucometer (BldC) [Mass/Vol]Ordered By: Vidya Robret on 34-94-2468Ykmtgrj [Mass/Vol]268 mg/dLUniversity Hospitals Tripoint Medical CenterComment on above:Random Glucose Reference Range is dependent on time and content of last meal. Glucose of more than 200 mg/dL in a nonstressed, ambulatory subject supports the diagnosis of Diabetes Mellitus.No Panel InformationOrdered By: Vidya Robert on 05-40-1596Srvvwur Glucose CommentGlu2: cleaned [facility] CenterErythrocyte distribution width Auto (RBC) [Ratio]Ordered By: [employer] on 59-39-2415Hbdxlgqmpqj distribution width (RBC) [Ratio]16.7 %12.0-14.8 [facility] Medical CenterHematocrit Auto (Bld) [Volume fraction]Ordered By: [employer] on 56-30-8373Hnrrbqyjbl (Bld) [Volume fraction]22.7 % 38.8-50.0[facility] Medical CenterHemoglobin [Mass/volume] in Blood Ordered By: [employer] on 06-21-7217Slsmlnhpto (Bld) [Mass/Vol]7.8 g/dL 13.0-17.0[facility] Medical CenterLeukocytes [#/volume] corrected for nucleated erythrocytes in Blood by Automated counOrdered By: [employer] on 03-67-0616QKM corrected for nucl RBC Auto (Bld) [#/Vol]9.4 10*3/uL4.1-10.5 [facility] Medical CenterMCH Auto (RBC) [Entitic mass]Ordered By: [employer] on 80-81-2409PSD (RBC) [Entitic mass]28.7 pg27.5-35.2FCincinnati Shriners HospitalMCHC Auto (RBC) [Mass/Vol]Ordered By: [employer] on 09-05-2023 MCHC (RBC) [Mass/Vol]34.1 g/dL32.5-35.6FCincinnati Shriners HospitalMCV Auto (RBC) [Entitic vol]Ordered By: [employer] on 42-48-9601EOC (RBC) [Entitic vol]84.1 fL83.5-101[facility] Medical CenterPlatelet mean volume Auto (Bld) [Entitic vol]Ordered By: [employer] on 36-70-8743Iwfbcjsq mean volume (Bld) [Entitic vol]9.8 fL6.6-10.1FCincinnati Shriners HospitalPlatelets Auto (Bld) [#/Vol]Ordered By: [employer] on 02-57-3871Ppvphxccy (Bld) [#/Vol]236 10*3/kA073-592TujzqlyvhUniversity Hospitals Tripoint Medical CenterRBC Auto (Bld) [#/Vol]Ordered By: [employer] on 27-74-8322XRM (Bld) [#/Vol]2.70 10*6/uL3.90-5.60[facility] Medical CenterBasophils Auto (Bld) [#/Vol]Ordered By: Jeevan [place] on 15-25-3106Wxmxfgptx (Bld) [#/Vol]0.0 10*3/uL0.0-0.2FCincinnati Shriners HospitalBasophils/100 WBC Auto (Bld)Ordered By: Jeevan [place] on 09-04-2023 Basophils/100 WBC (Bld)0.4 %.[facility] Medical CenterEosinophils Auto (Bld) [#/Vol]Ordered By: Jeevan [place] on 02-93-5985Yhscrxbresw (Bld) [#/Vol]0.1 10*3/uL0.0-0.45[facility] Medical CenterEosinophils/100 WBC Auto (Bld) Ordered By: Jeevan [place] on 18-44-2892Iroklntdqav/100 WBC (Bld)0.8 %.[facility] Medical CenterLymphocytes Auto (Bld) [#/Vol]Ordered By: Jeevan [place] on 58-00-3693Jutodqpsqzo (Bld) [#/Vol]1.3 10*3/uL1.00-4.8[facility] Medical CenterLymphocytes/100 WBC Auto (Bld)Ordered By: Jeevan [place] on 18-18-8149Kevhksefrgi/100 WBC (Bld)11.7 %.[facility] Monocytes Auto (Bld) [#/Vol]Ordered By: Jeevan [place] on 86-89-0246Ifncwyvlg (Bld) [#/Vol]1.9 10*3/uL0.0-0.8[facility] Medical CenterMonocytes/100 WBC Auto (Bld)Ordered By: Jeevan [place] on 29-80-7672Wcjhvmxzp/100 WBC (Bld)17.9 %.[facility] Medical CenterComment on above:Absolute monocytosis is commonly reactive in nature. However, if unexplained, recommend follow-up CBC in 3 months to evaluate for persistence.Neutrophils Auto (Bld) [#/Vol]Ordered By: Jeevan [place] on 97-83-8966Osppwmuhcso (Bld) [#/Vol]7.4 10*3/uL1.8-7.7FCincinnati Shriners HospitalNeutrophils/100 WBC Auto (Bld)Ordered By: Jeevan [place] on 45-99-6371Oskmkimshbo/100 WBC (Bld)69.2 %.[facility] Nucleated erythrocytes [Presence] in Blood by Automated countOrdered By: Jeevan [place] on 87-30-7382Selskykpu RBC Auto Ql (Bld)0.2 /100{WBC}0-0.5FCincinnati Shriners HospitalWBC Auto (Bld) [#/Vol]Ordered By: Jeevan [place] on 19-81-7034NZO (Bld) [#/Vol]10.7 10*3/uL4.1-10.5FCincinnati Shriners Hospital No Panel InformationOrdered By: [employer] on 94-06-5320Mjvtwpy Glucose #2 CommentWill repeat testUniversity Hospitals Tripoint Medical CenterAcanthocytes [Presence] in Blood by Light microscopyOrdered By: [employer] on 85-12-9433Puojbpnfrycp LM Ql (Bld)[facility] CenterAnisocytosis LM Ql (Bld) Ordered By: [employer] on 22-76-8186Oxhbrjdahzzu Ql (Bld)[facility]carawas HospitalBand form neutrophils/100 WBC Manual cnt (Bld)Ordered By: [employer] on 26-80-4504Fehf form neutrophils/100 WBC (Bld)4 %0-5FCincinnati Shriners HospitalBurr cells [Presence] in Blood by Light microscopyOrdered By: [employer] on 79-36-7442Tmjd cells LM Ql (Bld)[facility] Medical CenterCalcium [Mass/volume] in Serum or PlasmaOrdered By: [employer] on 22-53-2911Spfdomt [Mass/Vol]7.7 mg/dL8.6-10.3FCincinnati Shriners HospitalCarbon dioxide, total [Moles/volume] in Serum or PlasmaOrdered By: [employer] on 56-15-9668AA8 [Moles/Vol]27.3 mmol/L21.0-31.0[facility] Medical CenterChloride [Moles/volume] in Serum or PlasmaOrdered By: [employer] on 60-28-9434Wbkxntve [Moles/Vol]106 mmol/E88-495PgstlbnxvUniversity Hospitals Tripoint Medical CenterCreatinine [Mass/volume] in Serum or PlasmaOrdered By: [employer] on 31-57-5370Xsivytfvds [Mass/Vol]0.81 mg/dL0.70-1.30[facility] Medical CenterGlucose [Mass/volume] in Serum or PlasmaOrdered By: [employer] on 31-83-1478Zqvstbf [Mass/Vol]79 mg/eR43-067FtfrwfoctUniversity Hospitals Tripoint Medical Center Comment on above:ADA recommended reference rangeRandom Glucose Reference Range is dependent on time and content of last meal. Glucose of more than 200 mg/dL in a nonstressed, ambulatory subject supports the diagnosisof Diabetes Mellitus. Hypochromia LM Ql (Bld)Ordered By: [employer] on 52-97-7878Ypuavzilwhq Ql (Bld)[facility]aw[facility] HospitalLymphocytes/100 WBC Manual cnt (Bld)Ordered By: [employer] on 96-81-1394Qlnaxjoovgh/100 WBC (Bld)9 %18-42 [facility] CenterMicrocytes LM Ql (Bld)Ordered By: [employer] on 35-78-7934Dfikxoyjof Ql (Bld)[facility]aw[facility] HospitalMonocytes/100 WBC Manual cnt (Bld)Ordered By: [employer] on 09-01-2023 Monocytes/100 WBC (Bld)7 %2-11[facility] CenterNo Panel InformationOrdered By: [employer] on 50-01-9961Yznmqovlw GFR (CKD-EPI)> 60.0 mL/MinUniversity Hospitals Tripoint Medical CenterPharmacy Creatinine Clearance (Chem59.91 [facility] Medical CenterOvalocyte detectionOrdered By: [employer] on 88-22-1622Slvifpxctv LM Ql (Bld)[facility] Platelet adequacy [Presence] in Blood by Light microscopyOrdered By: [employer] on 28-86-5038Ogngzvgil LM Ql (Bld)DecreasedNormalUniversity Hospitals Tripoint Medical CenterPlatelet morphology finding [Identifier] in BloodOrdered By: [employer] on 15-22-2662Fdcrgwcx morphology finding Nom (Bld)N/[facility] HospitalPlatelets Large [Presence] in Blood by Light microscopy Ordered By: [employer] on 68-94-1299Dsbtgjfwj Large LM Ql (Bld)TrihealthPoikilocytosis [Presence] in Blood by Light microscopyOrdered By: [employer] on 95-86-5377Zxqfdtjobtgzfd LM Ql (Bld) [facility] HospitalPolychromasia [Presence] in Blood by Light microscopyOrdered By: [employer] on 15-84-0915Rzggkqdzgxqqh LM Ql (Bld)[facility] CenterPotassium [Moles/volume] in Serum or PlasmaOrdered By: [employer] on 39-59-8375Iupcbctzd [Moles/Vol]3.9 mmol/L 3.5-5.1FCincinnati Shriners HospitalRBC morphologyOrdered By: [employer] on 02-89-9130NYF morphology finding Nom (Bld)N/[facility] Hospitalchistocytes [Presence] in Blood by Light microscopyOrdered By: [employer] on 98-95-4949Kscdmnsfoaxa LM Ql (Bld)[facility] Medical Centeregmented neutrophils/100 WBC Manual cnt (Bld)Ordered By: [employer] on 00-76-0346Xeasbsyck neutrophils/100 WBC (Bld)81 %50-70[facility] Hospitalerum or plasma anion gap determinationOrdered By: [employer] on 08-58-1772Soayv gap [Moles/Vol]10.6 mmol/L6.0-15.0[facility] Hospitalodium [Moles/volume] in Serum or PlasmaOrdered By: [employer] on 67-90-1581Gexpnx [Moles/Vol]140 mmol/G512-942ButoweayuUniversity Hospitals Tripoint Medical Center Target cellsOrdered By: [employer] on 30-17-8211Mhtdrt cells LM Ql (Bld) [facility] CenterTroponin I.cardiac [Mass/volume] in Serum or Plasma by Detection limit <= 0.01 ng/Ordered By: [employer] on 95-37-6042Undlsfyy I.cardiac DL <= 0.01 ng/mL [Mass/Vol]779.8 pg/mL0.0-20.0 [facility] CenterComment on above:Critical Result : Called to and read back by: EDNA MORALES at: 09/01/2023 06:23:23 by:RGUrea nitrogen [Mass/volume] in Serum or PlasmaOrdered By: [employer] on 02-52-3991Gduw nitrogen [Mass/Vol]37 mg/dL7-25[facility] CenterActivated partial thromboplastin time (aPTT) in platelet poor plasma by coagulation a Ordered By: Federico Davis on 35-84-2655sTFA Coag (PPP) [Time]30.2 s25.1-36.5 [facility] Medical CenterComment on above:A hematocrit value greater than 55% may lead to inaccurate results in coagulation testing. Patientshaving hematocrit values >55% require a special collection tube for coagulation studies. Please contact the laboratory at [phone] for redraw instructions. Anisocytosis LM Ql (Bld)Ordered By: Federico Davis on 23-42-7131Jmlxycnuuded Ql (Bld) [facility] CenterBasophils Auto (Bld) [#/Vol]Ordered By: Federico Davis on 59-61-5630Hfrmgqcbg (Bld) [#/Vol]0.0 10*3/uL0.0-0.2FCincinnati Shriners HospitalBasophils/100 WBC Auto (Bld)Ordered By: Federico Davis on 60-23-4882Pgmhpevkf/100 WBC (Bld)0.5 %.[facility] Medical CenterCarbon dioxide, total [Moles/volume] in Serum or PlasmaOrdered By: Federico Davis on 70-98-5718RR8 [Moles/Vol]26.8 mmol/L21.0-31.0[facility] Chloride [Moles/volume] in Serum or PlasmaOrdered By: Federico Davis on 07-16-2023 Chloride [Moles/Vol]103 mmol/J07-084WzeubmbclUniversity Hospitals Tripoint Medical CenterCreatinine [Mass/volume] in Serum or PlasmaOrdered By: Federico Davis on 40-88-1025Iksanlwcxy [Mass/Vol]0.71 mg/dL0.70-1.30[facility] CenterEosinophils Auto (Bld) [#/Vol]Ordered By: Federico Davis on 66-97-6092Gjwqkgiatsm (Bld) [#/Vol]0.0 10*3/uL0.0-0.45[facility] CenterEosinophils/100 WBC Auto (Bld) Ordered By: Federico Davis on 48-36-3844Qoqfnnqivlo/100 WBC (Bld)0.3 %.[facility] CenterErythrocyte distribution width Auto (RBC) [Ratio]Ordered By: Federico Davis on 89-80-9281Uscbpfaihic distribution width (RBC) [Ratio]16.5 % 12.0-14.8[facility] CenterGlucose Glucometer (BldC) [Mass/Vol] Ordered By: Federico Davis on 00-12-2401Fclnram [Mass/Vol]398 mg/dLUniversity Hospitals Tripoint Medical CenterComment on above:Random Glucose Reference Range is dependent on time and content of last meal. Glucose of more than 200 mg/dL in a nonstressed, ambulatory subject supports the diagnosis of Diabetes Mellitus.Hematocrit Auto (Bld) [Volume fraction]Ordered By: Federico Davis on 61-34-1550Sexbqzltyv (Bld) [Volume fraction]33.5 %38.8-50.0[facility] CenterHemoglobin [Mass/volume] in BloodOrdered By: Federico Davis on 75-85-1321Xytewdiqpl (Bld) [Mass/Vol]11.0 g/dL13.0-17.0[facility] CenterHypochromia LM Ql (Bld)Ordered By: Federico Davis on 37-12-5930Dufalfxmaor Ql (Bld)MarkedUniversity Hospitals Tripoint Medical CenterINR in Platelet poor plasma by Coagulation assayOrdered By: Federico Davis on 22-94-7702SMK Coag (PPP) [Relative time]1.1 {INR}[facility] [facility] CenterComment on above:INR Therapeutic Range A) [...] by Automated counOrdered By: Federico Davis on 11-29-2858XHW corrected for nucl RBC Auto (Bld) [#/Vol]8.4 10*3/uL4.1-10.5 [facility] CenterLymphocytes Auto (Bld) [#/Vol]Ordered By: Federico Davis on 72-60-8276Erlzilssras (Bld) [#/Vol]0.7 10*3/uL1.00-4.8[facility] CenterLymphocytes/100 WBC Auto (Bld)Ordered By: Federico Davis on 65-87-3998Uhahhleetwy/100 WBC (Bld)8.4 %.[facility] Auto (RBC) [Entitic mass]Ordered By: Federico Davis on 16-94-1157IRD (RBC) [Entitic mass]26.4 pg27.5-35.2FCincinnati Shriners HospitalMCHC Auto (RBC) [Mass/Vol] Ordered By: Federico Davis on 34-81-8486JUPI (RBC) [Mass/Vol]32.8 g/dL32.5-35.6 [facility] CenterMCV Auto (RBC) [Entitic vol]Ordered By: Federico Davis on 17-96-8329ZDO (RBC) [Entitic vol]80.4 fL83.5-101[facility] CenterMacrocytes LM Ql (Bld)Ordered By: Federico Davis on 07-16-2023 Macrocytes Ql (Bld)SlightUniversity Hospitals Tripoint Medical CenterMonocytes Auto (Bld) [#/Vol]Ordered By: Federico Davis on 91-99-0750Evkbnwqiy (Bld) [#/Vol]1.3 10*3/uL 0.0-0.8[facility] CenterMonocytes/100 WBC Auto (Bld)Ordered By: Federico Davis on 29-29-7069Yoxlqstyj/100 WBC (Bld)15.1 %.[facility] CenterNeutrophils Auto (Bld) [#/Vol]Ordered By: Federico Davis on 07-16-2023 Neutrophils (Bld) [#/Vol]6.3 10*3/uL1.8-7.7FCincinnati Shriners Hospital Neutrophils/100 WBC Auto (Bld)Ordered By: Federico Davis on 73-11-5266Qhfpxczsbgf/100 WBC (Bld)75.7 %.[facility] CenterNo Panel InformationOrdered By: Federico Davis on 13-77-0658Jjztemj Glucose CommentGlu2: cleaned meterUniversity Hospitals Tripoint Medical CenterEstimated GFR (CKD-EPI)> 60.0 mL/MinUniversity Hospitals Tripoint Medical CenterPharmacy Creatinine Clearance (ChemN/AFCincinnati Shriners HospitalNucleated erythrocytes [Presence] in Blood by Automated countOrdered By: Federico Davis on 51-87-9853Zcxwpfsci RBC Auto Ql (Bld)0.1 /100{WBC}0-0.5FCincinnati Shriners HospitalPlatelet adequacy [Presence] in Blood by Light microscopy Ordered By: Federico Davis on 86-24-8616Tmomhnvod LM Ql (Bld)NormalNormalUniversity Hospitals Tripoint Medical CenterPlatelet mean volume Auto (Bld) [Entitic vol]Ordered By: Federico Davis on 68-92-1083Aozujqzb mean volume (Bld) [Entitic vol]10.1 fL6.6-10.1 [facility] CenterPlatelet morphology finding [Identifier] in BloodOrdered By: Federico Davis on 81-48-0120Ivvbcyzp morphology finding Nom (Bld)N/A [facility] CenterPlatelets Auto (Bld) [#/Vol]Ordered By: Federico Davis on 99-84-8284Hgwdkkrnp (Bld) [#/Vol]243 10*3/cW311-240AaawdziawUniversity Hospitals Tripoint Medical CenterPlatelets Large [Presence] in Blood by Light microscopyOrdered By: Federico Davis on 05-41-4367Npfqletvk Large LM Ql (Bld)SlightUniversity Hospitals Tripoint Medical CenterPoikilocytosis [Presence] in Blood by Light microscopyOrdered By: Federico Davis on 72-81-6468Oanrwdnxtlizgx LM Ql (Bld)[facility] HospitalPolychromasia [Presence] in Blood by Light microscopyOrdered By: Federico Davis on 66-04-5973Bpnmdooysjque LM Ql (Bld)[facility] HospitalPotassium [Moles/volume] in Serum or PlasmaOrdered By: Federico Davis on 03-27-2516Eggrjzhll [Moles/Vol]4.2 mmol/L3.5-5.1FCincinnati Shriners HospitalProthrombin time (PT)Ordered By: Federico Davis on 27-84-2498KR Coag (PPP) [Time]12.3 s9.0-12.9[facility] CenterComment on above:A hematocrit value greater than 55% may lead to inaccurate results in coagulation testing. Patientshaving hematocrit values >55% require a special collection tube for coagulation studies. Please contact the laboratory at [phone] for redraw instructions.RBC Auto (Bld) [#/Vol]Ordered By: Federico Davis on 81-55-2648PLX (Bld) [#/Vol]4.17 10*6/uL3.90-5.60[facility] CenterRBC morphologyOrdered By: Federico Davis on 69-83-5698PSF morphology finding Nom (Bld)N/A [facility] Hospitalchistocytes [Presence] in Blood by Light microscopyOrdered By: Federico Davis on 32-38-8842Erfmlfqljlan LM Ql (Bld)Slight [facility] Hospitalerum or plasma anion gap determinationOrdered By: Federico Davis on 04-77-8841Nnagg gap [Moles/Vol]12.4 mmol/L6.0-15.0[facility] Hospitalodium [Moles/volume] in Serum or PlasmaOrdered By: Federico Davis on 73-46-5818Hcvlkg [Moles/Vol]138 mmol/F266-485ZryabplpnUniversity Hospitals Tripoint Medical CenterTarget cellsOrdered By: Federico Davis on 50-17-2693Uvkdpz cells LM Ql (Bld)ModerateUniversity Hospitals Tripoint Medical CenterUrea nitrogen [Mass/volume] in Serum or PlasmaOrdered By: Federico Davis on 06-44-7212Hibm nitrogen [Mass/Vol]16 mg/dL7-25[facility] CenterWBC Auto (Bld) [#/Vol]Ordered By: Federico Davis on 87-63-1684LPS (Bld) [#/Vol]8.4 10*3/uL4.1-10.5FCincinnati Shriners HospitalProgress Noteson 25-44-2042Lbrwjneyjnxcr Authentication Interface Message TextEMERGENCY TRIAGE, TREAT AND TRANSPORT (ET3) DOCUMENTATION OF TELEHEALTH VISIT Date / Time: 06/02/2023929 Name: Giovani Roche : 1935 SSN: (Not on file) EMS Agency: [facility] [x] Verbal consent obtained [] [...] Reported: Same ET3 Encounter Com[facility]: [facility] Leadon 07-36-1700Tbwuav sinus rhythm, anterolateral ST T wave abnormality, abnormal ECGCPACSTogus VA Medical Center Work Phone: Glucose Glucometer (BldC) [Mass/Vol]Ordered By: Fredi Medrano on 91-96-4389Gfcxshy [Mass/Vol]98 mg/dLUniversity Hospitals Tripoint Medical CenterComment on above:Random Glucose Reference Range is dependent on time and content of last meal. Glucose of more than 200 mg/dL in a nonstressed, ambulatory subject supports the diagnosis of Diabetes Mellitus.No Panel InformationOrdered By: Fredi Medrano on 42-62-3471Uhiaisc Glucose Comment Glu2: cleaned meterUniversity Hospitals Tripoint Medical CenterAlanine aminotransferase [Enzymatic activity/volume] in Serum or PlasmaOrdered By: Fredi Medrano on 78-28-9129SUM [Catalytic activity/Vol]14 U/L7-52[facility] CenterAlbumin [Mass/volume] in Serum or Plasma by Bromocresol green (BCG) dye binding methoOrdered By: Fredi Medrano on 06-36-2841Qvyejwc BCG dye [Mass/Vol]2.9 g/dL3.5-5.7FCincinnati Shriners HospitalAlkaline phosphatase [Enzymatic activity/volume] in Serum or PlasmaOrdered By: Fredi Medrano on 32-52-3348YZM [Catalytic activity/Vol]87 U/V74-840UqmdfezyhUniversity Hospitals Tripoint Medical CenterAspartate aminotransferase [Enzymatic activity/volume] in Serum or Plasma Ordered By: Fredi Medrano on 83-04-4111RGH [Catalytic activity/Vol]20 U/L 13-39[facility] CenterBasophils Auto (Bld) [#/Vol]Ordered By: Fredi Medrano on 33-24-7868Avpzbafka (Bld) [#/Vol]0.0 10*3/uL0.0-0.2 [facility] CenterBasophils/100 WBC Auto (Bld)Ordered By: Fredi Medrano on 94-79-3886Exwkplbtb/100 WBC (Bld)0.7 %.[facility] CenterBilirubin.total [Mass/volume] in Serum or PlasmaOrdered By: Fredi Medrano on 14-50-7283Szcqdocyf [Mass/Vol]0.5 mg/dL0.3-1.0 [facility] CenterCalcium [Mass/volume] in Serum or PlasmaOrdered By: Fredi Medrano on 77-31-2800Sfxajxj [Mass/Vol]8.0 mg/dL8.6-10.3 [facility] CenterCarbon dioxide, total [Moles/volume] in Serum or PlasmaOrdered By: Fredi Medrano on 62-19-6487VK8 [Moles/Vol]28.0 mmol/L21.0-31.0[facility] CenterChloride [Moles/volume] in Serum or PlasmaOrdered By: Fredi Medrano on 32-32-9832Hjapfusn [Moles/Vol]102 mmol/T57-409SsgufylcdUniversity Hospitals Tripoint Medical CenterCreatinine [Mass/volume] in Serum or PlasmaOrdered By: Fredi Medrano on 93-14-6783Krminydjuj [Mass/Vol]0.61 mg/dL0.70-1.30[facility] CenterEosinophils Auto (Bld) [#/Vol] Ordered By: Fredi Medrano on 23-38-2272Hzrfewmtjgb (Bld) [#/Vol]0.1 10*3/uL0.0-0.45[facility] CenterEosinophils/100 WBC Auto (Bld) Ordered By: Fredi Medrano on 33-74-9611Pjxzvfpxoxa/100 WBC (Bld)1.5 %. [facility] CenterErythrocyte distribution width Auto (RBC) [Ratio]Ordered By: Fredi Medrano on 93-20-4992Qbqkudurmju distribution width (RBC) [Ratio]16.8 %12.0-14.8[facility] CenterGlobulin Calc (S) [Mass/Vol]Ordered By: Fredi Medrano on 04-07-7045Jzhoqrjp (S) [Mass/Vol]2.5 g/dLUniversity Hospitals Tripoint Medical CenterGlucose [Mass/volume] in Serum or PlasmaOrdered By: Fredi Medrano on 33-47-0207Piasrot [Mass/Vol] 120 mg/wJ44-850BlrxacffxUniversity Hospitals Tripoint Medical CenterComment on above:ADA recommended reference rangeRandom Glucose Reference Range is dependent on time and content of last meal. Glucose of more than 200 mg/dL in a nonstressed, ambulatory subject supports the diagnosisof Diabetes Mellitus.Hematocrit Auto (Bld) [Volume fraction]Ordered By: Fredi Medrano on 78-61-7852Oreiebbztw (Bld) [Volume fraction]29.3 %38.8-50.0[facility] CenterHemoglobin [Mass/volume] in BloodOrdered By: Fredi Medrano on 14-31-8267Rfuqlbdlnx (Bld) [Mass/Vol]9.7 g/dL13.0-17.0[facility] CenterLeukocytes [#/volume] corrected for nucleated erythrocytes in Blood by Automated coun Ordered By: Fredi Medrano on 74-05-9225CWV corrected for nucl RBC Auto (Bld) [#/Vol]7.2 10*3/uL4.1-10.5[facility] CenterLymphocytes Auto (Bld) [#/Vol]Ordered By: Fredi Medrano on 12-70-1879Erdgegspbgw (Bld) [#/Vol]1.6 10*3/uL1.00-4.8[facility] CenterLymphocytes/100 WBC Auto (Bld)Ordered By: Fredi Medrano on 25-94-5936Jurvzxijizm/100 WBC (Bld)23.0 %.[facility] HospitalH Auto (RBC) [Entitic mass] Ordered By: Fredi Medrano on 52-49-4808THW (RBC) [Entitic mass]27.9 pg 27.5-35.2FCincinnati Shriners HospitalMCHC Auto (RBC) [Mass/Vol]Ordered By: Fredi Merdano on 06-76-4092WHVJ (RBC) [Mass/Vol]33.0 g/dL32.5-35.6 [facility] CenterMCV Auto (RBC) [Entitic vol]Ordered By: Fredi Medrano on 16-50-8323QTK (RBC) [Entitic vol]84.6 fL83.5-101 [facility] CenterMonocytes Auto (Bld) [#/Vol]Ordered By: Fredi Medrano on 15-51-2780Imltmmvdv (Bld) [#/Vol]0.7 10*3/uL0.0-0.8 [facility] CenterMonocytes/100 WBC Auto (Bld)Ordered By: Fredi Medrano on 73-87-3993Haolmhdav/100 WBC (Bld)9.9 %.[facility] CenterNeutrophils Auto (Bld) [#/Vol]Ordered By: Fredi Medrano on 96-07-9381Iakgbmymkmf (Bld) [#/Vol]4.6 10*3/uL1.8-7.7FCincinnati Shriners HospitalNeutrophils/100 WBC Auto (Bld)Ordered By: Fredi Medrano on 33-26-3475Ahstltwwsks/100 WBC (Bld)64.9 %.[facility] CenterNo Panel InformationOrdered By: Fredi Medrano on 05-04-2023 Estimated GFR (CKD-EPI)> 60.0 mL/MinUniversity Hospitals Tripoint Medical CenterPharmacy Creatinine Clearance (Chem62.25[facility] CenterNucleated erythrocytes [Presence] in Blood by Automated countOrdered By: Fredi Medrano on 96-67-7520Ybauopigg RBC Auto Ql (Bld)0.2 /100{WBC}0-0.5FCincinnati Shriners HospitalPlatelet mean volume Auto (Bld) [Entitic vol]Ordered By: Fredi Medrano on 89-33-8706Jnwmlnvm mean volume (Bld) [Entitic vol]8.9 fL 6.6-10.1FCincinnati Shriners HospitalPlatelets Auto (Bld) [#/Vol]Ordered By: Fredi Medrano on 71-18-1469Urbczxceh (Bld) [#/Vol]218 10*3/yH800-691 [facility] CenterPotassium [Moles/volume] in Serum or Plasma Ordered By: Fredi Medrano on 71-35-8323Mfugccjqc [Moles/Vol]4.6 mmol/L 3.5-5.1FCincinnati Shriners HospitalPrealbumin [Mass/volume] in Serum or PlasmaOrdered By: Fredi Medrano on 56-44-6221Jvfjmdrfbf [Mass/Vol]10.2 mg/dL17.0-34.0[facility] CenterProtein [Mass/volume] in Serum or PlasmaOrdered By: Fredi Medrano on 51-84-7545Adbfoxn [Mass/Vol]5.4 g/dL 6.4-8.9[facility] CenterRBC Auto (Bld) [#/Vol]Ordered By: Fredi Medrano on 25-59-8934MSV (Bld) [#/Vol]3.46 10*6/uL3.90-5.60 [facility] Hospitalerum or plasma albumin/globulin mass ratio Ordered By: Fredi Medrano on 99-80-7554Zqabutf/Globulin [Mass ratio]1.2 {ratio}[facility] Hospitalerum or plasma anion gap determination Ordered By: Fredi Medrano on 16-23-4441Ddodr gap [Moles/Vol]8.6 mmol/L 6.0-15.0[facility] Hospitalodium [Moles/volume] in Serum or PlasmaOrdered By: Fredi Medrano on 95-10-8314Udjgus [Moles/Vol]134 mmol/L 136-145[facility] CenterUrea nitrogen [Mass/volume] in Serum or PlasmaOrdered By: Fredi Medrano on 42-99-6012Iiqz nitrogen [Mass/Vol]22 mg/dL7-25[facility] CenterWBC Auto (Bld) [#/Vol]Ordered By: Fredi Medrano on 84-02-3843FHQ (Bld) [#/Vol]7.2 10*3/uL4.1-10.5FCincinnati Shriners HospitalCholesterol [Mass/volume] in Serum or PlasmaOrdered By: Anat Perez on 50-43-0990Jupbknnlumb [Mass/Vol]98 mg/iP524-485MyznemxkzUniversity Hospitals Tripoint Medical CenterComment on above:Chol less than 200 mg/dl low riskChol 201-239 mg/dl borderline riskChol 240 mg/dl and greater high riskCholesterol in LDL Calc [Mass/Vol]Ordered By: Anat Perez on 18-66-0191Qncnkfcqfck in LDL [Mass/Vol]46 mg/dL0-100[facility] CenterComment on above:LDL ATP III CLASSIFICATIONLDL less than 100 mg/dL OptimalLDL 100-129 mg/dL Near or above kxrelqzQPS512-417 mg/dL Borderline highLDL 160-189 mg/dL HighLDL greater than 189 mg/dL Very highCholesterol in VLDL Calc [Mass/Vol]Ordered By: Anat Perez on 72-07-2185Gycgjbuiztr in VLDL [Mass/Vol]12 mg/dLUniversity Hospitals Tripoint Medical CenterGlucose Glucometer (BldC) [Mass/Vol]Ordered By: Humberto Diaz on 61-16-7021Tbvrcen [Mass/Vol]388 mg/dLUniversity Hospitals Tripoint Medical CenterComment on above:Random Glucose Reference Range is dependent on time and content of last meal. Glucose of more than 200 mg/dL in a nonstressed, ambulatory subject supports the diagnosis of Diabetes Mellitus.Serum or plasma high density lipoprotein (HDL) cholesterol measurementOrdered By: Anat Perez on 05-03-2023 Cholesterol in HDL [Mass/Vol]39 mg/aY00-24OwdxtoyssUniversity Hospitals [facility] Comment on above:HDL CHOL ATP-III CLASSIFICATION Cardiovascular RiskHDL > or equal to 60 mg/dL LOWHDL < 40 mg/dL HIGHSerum or plasma total cholesterol/high density lipoprotein (HDL) cholesterol mass ratOrdered By: Anat Perez on 92-91-6361Fmdberseuen.total/Cholesterol in HDL [Mass ratio]2.5 {ratio}<5.0 [facility] CenterTriglyceride [Mass/volume] in Serum or Plasma Ordered By: Anat Perez on 82-83-0237Faqtklqylfbd [Mass/Vol]64 mg/dL0-149 [facility] CenterComment on above:TRIG ATP III CLASSIFICATIONTRIG less than 150 mg/dL NormalTRIG 150-199 mg/dL Borderline highTRIG 200-500 mg/dL High TRIG greater than 500 mg/dL Very highStandard traceable to the Center for Disease Conrtrol and Prevention (CDC) test method. Basophils Auto (Bld) [#/Vol]Ordered By: Sushant Cordon on 05-02-2023 Basophils (Bld) [#/Vol]0.0 10*3/uL0.0-0.2FCincinnati Shriners Hospital Basophils/100 WBC Auto (Bld)Ordered By: Sushant Cordon on 05-02-2023 Basophils/100 WBC (Bld)0.1 %.[facility] CenterCalcium [Mass/volume] in Serum or PlasmaOrdered By: Sushant Cordon on 05-02-2023 Calcium [Mass/Vol]8.0 mg/dL8.6-10.3FCincinnati Shriners HospitalCarbon dioxide, total [Moles/volume] in Serum or PlasmaOrdered By: Sushant Cordon on 30-64-2410CK5 [Moles/Vol]30.1 mmol/L21.0-31.0[facility] CenterChloride [Moles/volume] in Serum or PlasmaOrdered By: Sushant Cordon on 68-59-2404Pnugntpp [Moles/Vol]97 mmol/S40-431DqsmuaypyUniversity Hospitals Tripoint Medical CenterCreatinine [Mass/volume] in Serum or PlasmaOrdered By: Sushant Cordon on 79-55-8267Fyaneptjmc [Mass/Vol]0.86 mg/dL0.70-1.30[facility] CenterEosinophils Auto (Bld) [#/Vol]Ordered By: Sushant Cordon on 59-39-9240Nfrhrksyhki (Bld) [#/Vol]0.1 10*3/uL0.0-0.45[facility] CenterEosinophils/100 WBC Auto (Bld)Ordered By: Sushant Cordon on 02-66-3834Entjzkmpzuf/100 WBC (Bld)0.8 %.[facility] CenterErythrocyte distribution width Auto (RBC) [Ratio]Ordered By: Sushant Cordon on 31-15-8952Gtjntnrpvgy distribution width (RBC) [Ratio]17.0 % 12.0-14.8[facility] CenterGlucose [Mass/volume] in Serum or PlasmaOrdered By: Sushant Cordon on 68-59-2561Kfnmwcd [Mass/Vol]87 mg/dL 70-100[facility] CenterComment on above:ADA recommended reference rangeRandom Glucose Reference Range is dependent on time and content of last meal. Glucose of more than 200 mg/dL in a nonstressed, ambulatory subject supports the diagnosisof Diabetes Mellitus.Hematocrit Auto (Bld) [Volume fraction]Ordered By: Sushant Cordon on 01-21-0364Zujqvghype (Bld) [Volume fraction]27.8 %38.8-50.0[facility] CenterHemoglobin [Mass/volume] in BloodOrdered By: Sushant Cordon on 29-86-5228Kjclqfvioh (Bld) [Mass/Vol]9.3 g/dL13.0-17.0[facility] CenterLeukocytes [#/volume] corrected for nucleated erythrocytes in Blood by Automated coun Ordered By: Sushant Cordon on 81-54-0254ZPD corrected for nucl RBC Auto (Bld) [#/Vol]8.6 10*3/uL4.1-10.5FCincinnati Shriners HospitalLymphocytes Auto (Bld) [#/Vol]Ordered By: Sushant Cordon on 27-25-3035Rdsklwdogmj (Bld) [#/Vol]1.2 10*3/uL1.00-4.8[facility] CenterLymphocytes/100 WBC Auto (Bld)Ordered By: Sushant Cordon on 78-94-8164Ytbxxyxxrdz/100 WBC (Bld)13.7 %.[facility] HospitalH Auto (RBC) [Entitic mass] Ordered By: Sushant Cordon on 37-84-4723JMW (RBC) [Entitic mass]28.3 pg 27.5-35.2FCincinnati Shriners HospitalMCHC Auto (RBC) [Mass/Vol]Ordered By: Sushant Cordon on 19-22-4756FTJG (RBC) [Mass/Vol]33.6 g/dL32.5-35.6 [facility] CenterMCV Auto (RBC) [Entitic vol]Ordered By: Sushant Cordon on 48-46-8109MQH (RBC) [Entitic vol]84.2 fL83.5-101 [facility] CenterMonocytes Auto (Bld) [#/Vol]Ordered By: Sushant Cordon on 38-34-2409Wbxcxslqx (Bld) [#/Vol]1.2 10*3/uL0.0-0.8 [facility] CenterMonocytes/100 WBC Auto (Bld)Ordered By: Sushant Cordon on 50-51-2079Ecxolibbs/100 WBC (Bld)13.5 %.[facility] CenterNeutrophils Auto (Bld) [#/Vol]Ordered By: Sushant Cordon on 16-83-4433Tqepxzixeus (Bld) [#/Vol]6.2 10*3/uL1.8-7.7FCincinnati Shriners HospitalNeutrophils/100 WBC Auto (Bld)Ordered By: Sushant Cordon on 93-03-4826Yvbxycouhfp/100 WBC (Bld)71.9 %.[facility] CenterNo Panel InformationOrdered By: Sushant Cordon on 05-02-2023 Bedside Glucose CommentSee commentUniversity Hospitals Tripoint Medical CenterComment on above:Glu2: WILL NOTIFY DR/RNEstimated GFR (CKD-EPI)> 60.0 mL/MinUniversity Hospitals Tripoint Medical CenterPharmacy Creatinine Clearance (Chem59.22[facility] CenterNucleated erythrocytes [Presence] in Blood by Automated countOrdered By: Sushant Cordon on 47-95-3366Mhlilelix RBC Auto Ql (Bld) 0.0 /100{WBC}0-0.5FCincinnati Shriners HospitalPlatelet mean volume Auto (Bld) [Entitic vol]Ordered By: Sushant Cordon on 61-17-6785Rbwvjuez mean volume (Bld) [Entitic vol]9.3 fL6.6-10.1FCincinnati Shriners Hospital Platelets Auto (Bld) [#/Vol]Ordered By: Sushant Cordon on 05-02-2023 Platelets (Bld) [#/Vol]168 10*3/vY533-561NyffkvvgrUniversity Hospitals [facility] Center Potassium [Moles/volume] in Serum or PlasmaOrdered By: Sushant Cordon on 23-76-7825Ujtfquqzm [Moles/Vol]4.2 mmol/L3.5-5.1FCincinnati Shriners HospitalRBC Auto (Bld) [#/Vol]Ordered By: Sushant Cordon on 48-27-8374NIG (Bld) [#/Vol]3.29 10*6/uL3.90-5.60[facility] Hospitalerum or plasma anion gap determinationOrdered By: Sushant Cordon on 05-02-2023 Anion gap [Moles/Vol]8.1 mmol/L6.0-15.0[facility] Hospitalodium [Moles/volume] in Serum or PlasmaOrdered By: Sushant Cordon on 05-02-2023 Sodium [Moles/Vol]131 mmol/A847-404KfmrepvqxUniversity Hospitals Tripoint Medical CenterUrea nitrogen [Mass/volume] in Serum or PlasmaOrdered By: Sushant Cordon on 52-07-8727Vobg nitrogen [Mass/Vol]21 mg/dL7-25[facility] WBC Auto (Bld) [#/Vol]Ordered By: Sushnat Cordon on 65-80-5955BEF (Bld) [#/Vol]8.6 10*3/uL4.1-10.5FCincinnati Shriners HospitalActivated partial thromboplastin time (aPTT) in platelet poor plasma by coagulation aOrdered By: Anat Perez on 44-89-0033vXOO Coag (PPP) [Time]30.6 s25.1-36.5FCincinnati Shriners HospitalComment on above:A hematocrit value greater than 55% may lead to inaccurate results in coagulation testing. Patientshaving hematocrit values >55% require a special collection tube for coagulation studies. Please c ontact the laboratory at [phone] for redraw instructions.INR in Platelet poor plasma by Coagulation assayOrdered By: Anat Perez on 74-81-0558JOJ Coag (PPP) [Relative time]1.3 {INR}[facility] CenterComment on above: INR Therapeutic Range [...] on 04-30-2023 Natriuretic peptide B (Bld) [Mass/Vol]523.0 pg/mL5-100[facility] CenterProthrombin time (PT)Ordered By: Anat Perez on 24-16-0642TR Coag (PPP) [Time]15.6 s9.0-12.9[facility] CenterComment on above:A hematocrit value greater than 55% may lead to inaccurate results in coagulation testing. Patientshaving hematocrit values >55% require a special collection tube for coagulation studies. Please contact the laboratory at [phone] for redraw instructions.Troponin I.cardiac [Mass/volume] in Serum or Plasma by Detection limit <= 0.01 ng/Ordered By: Anat Perez on 18-36-0927Bepbremb I.cardiac DL <= 0.01 ng/mL [Mass/Vol]53.7 pg/mL0.0-20.0[facility] CenterComment on above:Critical Result : Called to and read back by: STEVEN BYRD at: 04/30/2023 19:24:20 by:[id number] [Mass/volume] in Serum or PlasmaOrdered By: Sushant Cordon on 44-73-6807Mzzkmrrz [Mass/Vol]41.5 ng/mL23.9-336.2FCincinnati Shriners HospitalFolate [Mass/volume] in Serum or PlasmaOrdered By: Sushant Cordon on 05-06-8242Uiydjh [Mass/Vol]28.0 ng/mL >5.9[facility] CenterComment on above:Folate reference range: >5.9 ng/mlThe WHO technical consultation on folate and vitamin z37nfphamlhthpm has determined that folate concentrations lessthan 4 ng/ml are considered deficient.Iron [Mass/volume] in Serum or PlasmaOrdered By: Sushant Cordon on 26-32-7669Pjqb [Mass/Vol]45 ug/cL13-659EtgyrzenvUniversity Hospitals Tripoint Medical CenterIron binding capacity [Mass/volume] in Serum or PlasmaOrdered By: Sushant Cordon on 62-59-4760Wgzi binding capacity [Mass/Vol]330 ug/xX462-108RhnfwsfvaUniversity Hospitals Tripoint Medical CenterIron saturation [Mass Fraction] in Serum or Plasma Ordered By: Sushant Cordon on 38-30-5183Wsgg saturation [Mass fraction] 13.6 %20-50[facility] CenterMagnesium [Mass/volume] in Serum or PlasmaOrdered By: Sushant Cordon on 10-83-5500Lsyiazthm [Mass/Vol]1.9 mg/dL1.9-2.7FCincinnati Shriners HospitalNo Panel InformationOrdered By: Sushant Cordon on 82-68-9629Dzqtqnt Glucose #2 CommentWill notify /rn [facility] CenterTransferrin [Mass/volume] in Serum or Plasma Ordered By: Sushant Cordon on 19-54-1444Wtsvashfmld [Mass/Vol]236 mg/dL 203-362[facility] CenterVitamin B12 ser/plasOrdered By: Sushant Cordon on 91-56-2226Owbbxbaoi (Vitamin B12) [Mass/Vol]626 pg/mL 180-914[facility] CenterActivated partial thromboplastin time (aPTT) in platelet poor plasma by coagulation aOrdered By: Vinnie Rivas on 24-02-4714nAGU Coag (PPP) [Time]27.8 s25.1-36.5FCincinnati Shriners Hospital Comment on above:A hematocrit value greater than 55% may lead to inaccurate results in coagulation testing. Patientshaving hematocrit values >55% require a special collection tube for coagulation studies. Please contact the laboratory at [phone] for redraw instructions.Alanine aminotransferase [Enzymatic activity/volume] in Serum or PlasmaOrdered By: Vinnie Rivas on 25-32-5894WNI [Catalytic activity/Vol]34 U/L7-52[facility] CenterAlbumin [Mass/volume] in Serum or Plasma by Bromocresol green (BCG) dye binding metho Ordered By: Vinnie Rivas on 19-66-3179Yxpdkoz BCG dye [Mass/Vol]4.0 g/dL3.5-5.7 [facility] CenterAlkaline phosphatase [Enzymatic activity/volume] in Serum or PlasmaOrdered By: Vinnie Rivas on 36-33-0960NRX [Catalytic activity/Vol]108 U/R74-940NogreuqbeUniversity Hospitals Tripoint Medical CenterAspartate aminotransferase [Enzymatic activity/volume] in Serum or PlasmaOrdered By: Vinnie Rivas on 72-53-6544WSX [Catalytic activity/Vol]46 U/T37-94XsqopoeqcUniversity Hospitals Tripoint Medical CenterBasophils Auto (Bld) [#/Vol]Ordered By: Vinnie Rivas on 51-42-6393Zmsfhfyke (Bld) [#/Vol]0.0 10*3/uL0.0-0.2FCincinnati Shriners HospitalBasophils/100 WBC Auto (Bld)Ordered By: Vinnie Rivas on 04-28-2023 Basophils/100 WBC (Bld)0.4 %.[facility] CenterBilirubin Test strip Ql (U)Ordered By: Vinnie Rivas on 06-97-0199Cchzxptsp Ql (U)Negative NegativeUniversity Hospitals Tripoint Medical CenterBilirubin.total [Mass/volume] in Serum or PlasmaOrdered By: Vinnie Rivas on 84-68-0839Gbcbptlab [Mass/Vol]0.3 mg/dL 0.3-1.0[facility] CenterCalcium [Mass/volume] in Serum or Plasma Ordered By: Vinnie Rivas on 20-80-7124Fzrjcve [Mass/Vol]9.0 mg/dL8.6-10.3 [facility] CenterCarbon dioxide, total [Moles/volume] in Serum or PlasmaOrdered By: Vinnie Rivas on 79-00-7794PE0 [Moles/Vol]30.4 mmol/L 21.0-31.0[facility] CenterChloride [Moles/volume] in Serum or PlasmaOrdered By: Vinnie Rivas 18-34-2018Balfkfzw [Moles/Vol]101 mmol/L98-107 [facility] CenterColor Auto (U)Ordered By: Vinnie Rivas on 11-99-8214Gwubj (U)YellowYellowUniversity Hospitals Tripoint Medical CenterCreatinine [Mass/volume] in Serum or PlasmaOrdered By: Vinnie Rivas on 31-38-7234Nquozwbgxp [Mass/Vol]0.71 mg/dL0.70-1.30[facility] CenterEosinophils Auto (Bld) [#/Vol]Ordered By: Vinnie Rivas on 62-02-2100Tksgwrjbsdz (Bld) [#/Vol]0.0 10*3/uL0.0-0.45[facility] CenterEosinophils/100 WBC Auto (Bld) Ordered By: Vinnie Rivas on 73-23-6041Piixnrgygrv/100 WBC (Bld)0.5 %.[facility] CenterErythrocyte distribution width Auto (RBC) [Ratio]Ordered By: Vinnie Rivas on 27-80-4936Nqurqdfclgr distribution width (RBC) [Ratio]18.0 % 12.0-14.8[facility] CenterFructosamine [Moles/volume] in Serum or PlasmaOrdered By: Sushant Cordon on 08-75-2739Xxzrxauudwnc [Moles/Vol] 565 umol/L0-285[facility] CenterComment on above:Published reference interval for apparently healthysubjects between age 20 and 60 is 205 - 285 umol/L and in apoorly controlled diabetic population is 228 - 563 umol/Lwith a mean of 396 umol/L.Performed at: [facility] [id number] Director: Arturo Boles PhD, Phone: [phone] Globulin Calc (S) [Mass/Vol]Ordered By: Vinnie Rivas on 95-98-2260Ovhwpdvr (S) [Mass/Vol]3.2 g/dLUniversity Hospitals Tripoint Medical CenterGlucose Glucometer (BldC) [Mass/Vol]Ordered By: Sushant Cordon on 06-78-0958Gyavpzt [Mass/Vol]137 mg/dLUniversity Hospitals Tripoint Medical CenterComment on above:Random Glucose Reference Range is dependent on time and content of last meal. Glucose of more than 200 mg/dL in a nonstressed, ambulatory subject supports the diagnosis of Diabetes Mellitus.Glucose [Mass/volume] in Serum or PlasmaOrdered By: Vinnie Rivas on 34-71-8956Qbznbta [Mass/Vol]124 mg/qJ03-695HkzdnroxmUniversity Hospitals Tripoint [facility] Center Comment on above:ADA recommended reference rangeRandom Glucose Reference Range is dependent on time and content of last meal. Glucose of more than 200 mg/dL in a nonstressed, ambulatory subject supports the diagnosisof Diabetes Mellitus. Glucose mean value [Mass/volume] in Blood Estimated from glycated hemoglobin Ordered By: Sushant Cordon on 16-39-2835Tfkadfh glucose Estimated from glycated hemoglobin (Bld) [Mass/Vol]309 mg/dLUniversity Hospitals Tripoint [facility] Center Hematocrit Auto (Bld) [Volume fraction]Ordered By: Vinnie Rivas on 04-28-2023 Hematocrit (Bld) [Volume fraction]34.8 %38.8-50.0[facility] CenterHemoglobin A1c percentageOrdered By: Sushant Cordon on 04-28-2023 HbA1c (Bld) [Mass fraction]12.4 %4.3-5.6FCincinnati Shriners HospitalComment on above:Increased risk for diabetes: 5.7 - 6.4diabetes: >6.4glycemic control for adults with diabetes: <7.0Hemoglobin [Mass/volume] in BloodOrdered By: Vinnie Rivas on 13-15-2944Ugqnrhaina (Bld) [Mass/Vol]11.5 g/dL13.0-17.0[facility] CenterINR in Platelet poor plasma by Coagulation assayOrdered By: Vinnie Rivas on 90-80-0640GJY Coag (PPP) [Relative time]1.0 {INR}[facility] CenterComment on above:INR Therapeutic Range A) [...] strip (U) [Mass/Vol]Ordered By: Vinnie Rivas on 63-66-9251Mkzsmew (U) [Mass/Vol]Negative NegativeUniversity Hospitals Tripoint Medical CenterLeukocytes [#/volume] corrected for nucleated erythrocytes in Blood by Automated counOrdered By: Vinnie Rivas on 12-54-2192VYU corrected for nucl RBC Auto (Bld) [#/Vol]9.7 10*3/uL4.1-10.5 [facility] CenterLymphocytes Auto (Bld) [#/Vol]Ordered By: Vinnie Rivas on 18-82-1957Hwshgatppas (Bld) [#/Vol]1.4 10*3/uL1.00-4.8[facility] CenterLymphocytes/100 WBC Auto (Bld)Ordered By: Vinnie Rivas on 93-34-8411Ilgdlcodvbj/100 WBC (Bld)14.8 %.[facility] HospitalH Auto (RBC) [Entitic mass]Ordered By: Vinnie Rivas on 32-87-3477WPY (RBC) [Entitic mass]28.0 pg27.5-35.2FCincinnati Shriners HospitalMCHC Auto (RBC) [Mass/Vol]Ordered By: Vinnie Rivas on 19-25-2097KRGC (RBC) [Mass/Vol]33.2 g/dL 32.5-35.6FCincinnati Shriners HospitalMCV Auto (RBC) [Entitic vol]Ordered By: Vinnie Rivas on 64-13-0056IJD (RBC) [Entitic vol]84.3 fL83.5-101[facility] CenterMonocyte distribution width [Entitic volume] in Blood by AutomatedOrdered By: Vinnie Rivas on 15-84-2268Fkuydllx distribution width Auto (Bld) [Entitic vol]18.61 %0.00-20.00[facility] CenterMonocytes Auto (Bld) [#/Vol]Ordered By: Vinnie Rivas on 70-00-9509Savilnpem (Bld) [#/Vol] 0.9 10*3/uL0.0-0.8[facility] CenterMonocytes/100 WBC Auto (Bld) Ordered By: Vinnie Rivas on 18-91-7444Gldnjoblt/100 WBC (Bld)9.3 %.[facility] CenterNatriuretic peptide B [Mass/Vol]Ordered By: Vinnie Rivas on 09-74-1340Hiiimhytgsr peptide B (Bld) [Mass/Vol]665.0 pg/mL5-100[facility] CenterNeutrophils Auto (Bld) [#/Vol]Ordered By: Vinnie Rivas on 06-93-3148Qcanzgjngmp (Bld) [#/Vol]7.3 10*3/uL1.8-7.7FCincinnati Shriners HospitalNeutrophils/100 WBC Auto (Bld)Ordered By: Vinnie Rivas on 04-28-2023 Neutrophils/100 WBC (Bld)75.0 %.[facility] CenterNitrite Test strip Ql (U)Ordered By: Vinnie Rivas on 42-15-2553Xmmqbgt Ql (U)NegativeNegative [facility] CenterNo Panel InformationOrdered By: Vinnie Rivas on 73-47-1795Htockqngc GFR (CKD-EPI)> 60.0 mL/MinUniversity Hospitals Tripoint Medical Center Pharmacy Creatinine Clearance (Chem60.38[facility] Nucleated erythrocytes [Presence] in Blood by Automated countOrdered By: Vinnie Rivas on 21-28-9576Xfhrsxssg RBC Auto Ql (Bld)0.1 /100{WBC}0-0.5FCincinnati Shriners HospitalPlatelet mean volume Auto (Bld) [Entitic vol]Ordered By: Vinnie Rivas on 58-75-4931Oxjumphm mean volume (Bld) [Entitic vol]9.3 fL6.6-10.1 [facility] CenterPlatelets Auto (Bld) [#/Vol]Ordered By: Vinnie Rivas on 41-13-8243Bpjswgghy (Bld) [#/Vol]206 10*3/iJ164-676JjtefexalUniversity Hospitals Tripoint Medical CenterPotassium [Moles/volume] in Serum or PlasmaOrdered By: Vinnie Rivas on 54-02-4706Zbnsqlxyg [Moles/Vol]4.9 mmol/L3.5-5.1FCincinnati Shriners HospitalProtein Auto test strip (U) [Mass/Vol]Ordered By: Vinnie Rivas on 48-76-9812Ixvjwtt (U) [Mass/Vol]NegativeNegativeUniversity Hospitals Tripoint Medical CenterProtein [Mass/volume] in Serum or PlasmaOrdered By: Vinnie Rivas on 12-86-0282Cgxsbhi [Mass/Vol]7.2 g/dL6.4-8.9[facility] Prothrombin time (PT)Ordered By: Vinnie Rivas on 77-23-3888EG Coag (PPP) [Time] 11.8 s9.0-12.9[facility] CenterComment on above:A hematocrit value greater than 55% may lead to inaccurate results in coagulation testing. Patientshaving hematocrit values >55% require a special collection tube for coagulation studies. Please contact the laboratory at [phone] for redraw instructions.RBC Auto (Bld) [#/Vol]Ordered By: Vinnie Rivas on 85-55-7572EJR (Bld) [#/Vol]4.12 10*6/uL3.90-5.60[facility] Hospitalerum or plasma albumin/globulin mass ratioOrdered By: Vinnie Rivas on 04-28-2023 Albumin/Globulin [Mass ratio]1.3 {ratio}[facility] Hospitalerum or plasma anion gap determinationOrdered By: Vinnie Rivas on 40-98-9441Aktpp gap [Moles/Vol]9.5 mmol/L6.0-15.0[facility] Hospitalodium [Moles/volume] in Serum or PlasmaOrdered By: Vinnie Rivas on 67-78-7598Qdgyvd [Moles/Vol]136 mmol/L013-642WvxgdbvjoGrand Lake Joint Township District Memorial Hospitalpecific gravity Auto test strip (U) [Rel density]Ordered By: Vinnie Rivas on 39-81-7309Neqvlmvm gravity (U) [Rel density]1.0091.001-1.030[facility] Troponin I.cardiac [Mass/volume] in Serum or Plasma by Detection limit <= 0.01 ng/Ordered By: Vinnie Rivas 61-71-1074Uycxidqe I.cardiac DL <= 0.01 ng/mL [Mass/Vol]38.3 pg/mL0.0-20.0[facility] CenterUrea nitrogen [Mass/volume] in Serum or PlasmaOrdered By: Vinnie Rivas 10-81-5485Vmip nitrogen [Mass/Vol]15 mg/dL7-25[facility] CenterUrine clarity by refractometry automatedOrdered By: Vinnie Rivas 88-87-8502Lsmvhsu Refractometry automated (U)ClearClearFCincinnati Shriners HospitalUrine glucose measurement by automated test strip (mass/volume)Ordered By: Vinnie Rivas 00-31-7669Fvumssz Auto test strip (U) [Mass/Vol]Normal mg/dLNormal [facility] CenterUrine hemoglobin detection by automated test stripOrdered By: Vinnie Rivas on 97-52-7841Kjkjpkdbau Auto test strip Ql (U) NegativeNegativeUniversity Hospitals Tripoint Medical CenterUrine leukocyte esterase detection by automated test stripOrdered By: Vinnie Rivas on 42-19-2261Vrkfmbhob esterase Auto test strip Ql (U)NegativeNegativeUniversity Hospitals Tripoint Medical CenterUrobilinogen Auto test strip (U) [Mass/Vol]Ordered By: Vinnie Rob on 99-01-7973Swletjgkmjdi (U) [Mass/Vol]Normal mg/dLNormalUniversity Hospitals Tripoint Medical CenterWBC Auto (Bld) [#/Vol]Ordered By: Vinnie Rivas on 56-01-1488UOC (Bld) [#/Vol]9.7 10*3/uL4.1-10.5FCincinnati Shriners HospitalpH Auto test strip (U)Ordered By: Vinnie Rivas on 77-75-7312pS (U)6.5 [pH]5.0-9.0[facility] CenterCoding Summaryon 60-28-3027Effqri SummaryHTMLBase 64 IzskszsmLEd1iZp+PGhlYWQ+KA0YSSXjN85qyQFpuT6bB9VFOXnKFlnbZYLRREwNPjKvetVrGM0avAAk ZXJu [file] bGx (more content not included)...[facility] HospitalConsent Formson 24-50-7002Hukszpi [id number]#1.00OTGTIFFNormal Mansfield HospitalBUN/Creat Ratioon 61-04-3392iSKZ Non AA>60Invalid Interpretation [facility] HospitalComment on above:Performed By: #### [id number] #### [facility] (DEFAULT) [address] [place] [address]mHHG AA>60Invalid Interpretation [facility] Comment on above:Performed By: #### [id number] #### [facility] (DEFAULT) [address] [place] [address]Ujexhyqysy [Mass/Vol]0.69 mg/dLLow0.90-1.30[facility] HospitalComment on above:Performed By: #### [id number] #### [facility] (DEFAULT) [address] [place] [address], [place] [address]Ozfg nitrogen [Mass/Vol]14 mg/dLNormal8-26[facility] HospitalComment on above:Performed By: #### [id number] #### [facility] (DEFAULT) [address] [place] [address]96[address]Pqqr nitrogen/Creatinine [Mass ratio]20.2 mg/mgHigh 4.6-16.2Mun[facility] hospitals [facility] HospitalComment on above:Performed By: #### [id number] #### [facility] (DEFAULT) [address] [place] [address]CW Urogramon 98-32-6731FO UrogramCLINICAL HISTORY: Hydronephrosis. COMPARISON: None available. TECHNIQUE: [...] Mima Solorzano MD 04/23/23 3:17 pm Technologist: MACKENZIESumma Health Akron CampusProvider Orderson 72-68-9958Kxapqrfy [id number]#1.00OTGTIFFGalion HospitalUS RENAL AND BLADDERon 61-04-9188[place]mtG[place] [address] Ultrasound Report Signed Patient: MANOLO ROCHE MR#: [id number] : 1935 Acct:[id number] Age/Sex: 88 / M ADM Date: 04/12/23 Loc: US Attending Dr: JonesStaff Physician Morin Ordering Physician: Maci Morton M.D. Date of Service: 04/12/23 Procedure(s): US renal bladder Accession Number(s): [id number] cc: Maci Morton M.D.; MARIE TEJEDA [place] [address] Patient Name: MANOLO ROCHE MRN: [id number] date: 1935 Sex: M Assigned Patient Location: US Current Patient Location: US Accession/Order Number: [id number] Exam Date: 04/12/2023 09:03 Report Date: 04/12/2023 [...] Signed By: 04/12/23 1011 DD/ 1008 TD/TT: Production Internship:MIGUELANGELHRadiology, Radiologist, - 04/15/2023 [place] [address] Ultrasound Report Signed Patient: MANOLO ROCHE MR#: [id number] : 1935 Acct:[id number] Age/Sex: 88 / M ADM Date: 04/12/23 Loc: US Attending Dr: Haley-Staff Physician Morin Ordering Physician: Maci Morton M.D. Date of Service: 04/12/23 Procedure(s): US renal bladder Accession Number(s): [id number] cc: PhysicianMaci M.D.; MARIE TEJEDA [place] [id number] Patient Name: MANOLO ROCHE MRN: [id number] date: 1935 Sex: M Assigned Patient Location: Current Patient Location: US Accession/Order Number: [id number] Exam Date: 04/12/2023 09:03 Report Date: 04/12/2023 [...] Signed By: 04/12/23 1011 DD/ 1008 TD/TT: Production Internship: [facility] HealthcareRadiology Study observation (narrative)[facility] HospitalUS RENAL AND BLADDEROrdered By: Radiologist Radiology on 23-58-0110X[employer] Work Phone: Provider Orderson 92-47-0594Ywajbrov Orders [id number]#1.00OTGTIFFSouthview Medical Center RANDOMon 44-32-4171Wnymiwqbe Ql (U)NegativeNormalNEGATIVEMercy Health St. Charles Hospital Comment on above:Performed By: #### CMP, LIPID #### [facility] [address] [place] [address] Dr. Kylee Oneill (U)CLEARNormalCLEARMercy Health St. Charles HospitalComment on above: Performed By: #### CMP, LIPID #### [facility] [address] [place] [address] Dr. Kylee De La Garza (U)YELLOWNormalYELLOWMercy Health St. Charles HospitalComment on above: Performed By: #### CMP, LIPID #### [facility] [address] [place] [address] Dr. Yilan ChangGlucose Ql (U)NegativeNormalNEGATIVEMercy Health St. Charles HospitalComment on above:Performed By: #### CMP, LIPID #### [facility] [address] [address] [address] Kylee BunchHemoglobin Ql (U)TRACE-INTACTAbnormalNEGATIVEMercy Health St. Charles HospitalComment on above:Performed By: #### CMP, LIPID #### [facility] [address] [place] [address] [address] Kylee BunchKetones Ql (U)TRACEAbnormalNEGATIVEMercy Health St. Charles HospitalComment on above:Performed By: #### CMP, LIPID #### [facility] [address] [place] [address] Dr. Kylee BunchLEUKOCYTESNegativeNormalNEGATIVEMercy Health St. Charles HospitalCommunson healthcare [facility] on above:Performed By: #### CMP, LIPID #### [facility] [address] [place] [address] Dr. Kylee BunchNitrite Ql (U)NegativeNormalNEGATIVEMercy Health St. Charles HospitalComment on above:Performed By: #### CMP, LIPID #### [facility] [address] [place] [address] Dr. Kylee BunchpH (U)5.5 [pH]Normal5-9[facility] on above: Performed By: #### CMP, LIPID #### [facility] [address] [place] [address] Dr. Kylee BunchSPEC GRAVITY>=1.348Xprpyuqd6.005-<=1.025The [facility] Comment on above:Performed By: #### CMP, LIPID #### [facility] [address] [place] [address] Dr. Kylee BunchUA PROTEINNegativeAshfordNEGATIVE/ TRACEThe [facility] Comment on above:Performed By: #### CMP, LIPID #### [facility] [address] [place] [address] Dr. Kylee BunchUrobilinogen Qn (U)0.2 {Gemini'U}/dLNormal0.2 - 1.0The [facility] HospitalComment on above:Performed By: #### CMP, LIPID #### [facility] [address] [place] [address] Dr. Kylee Locke AUTO DIFFon 91-21-3025XOZI #0.0 103/ulNormal0.0-0.1The [facility] HospitalComment on above:Performed By: #### CMP, LIPID #### [facility] [address] [place] [address] Dr. Kylee BunchBasophils/100 WBC (Bld)0.7 %Normal0.2-2.0[facility] Comment on above:Performed By: #### CMP, LIPID #### [facility] [address] [place] [address] Dr. Kylee Del Castillo #0.1 103/ulNormal0.0-0.7The [facility] HospitalComment on above: Performed By: #### CMP, LIPID #### [facility] [address] [place] [address] Dr. Kylee Steinbergosinophils/100 WBC (Bld)2.6 %Normal0.9-7.0The [facility] Comment on above:Performed By: #### CMP, LIPID #### [facility] [address] [place] [address] Dr. Kylee Steinbergrythrocyte distribution width (RBC) [Ratio]17.2 %Critically high 11.0-15.0[facility] Charles HospitalComment on above:Performed By: #### CMP, LIPID #### [facility] [address] [place] [address] Dr. Kylee BunchHematocrit (Bld) [Volume fraction]36.1 %Critically low42.0-54.0 The [facility] HospitalComment on above:Performed By: #### CMP, LIPID #### [facility] [address] [place] [address] Dr. Kylee BunchHemoglobin (Bld) [Mass/Vol]12.1 g/dLCritically low14.0-18.0The [facility] HospitalComment on above:Performed By: #### CMP, LIPID #### [facility] [address] [place] [address] [address] Kylee Mckoy #0.01 10e3/ulNormal0.00-0.03[facility] on above:Performed By: #### CMP, LIPID #### [facility] [address] [place] [address] Dr. Kylee Mckoy %0.2 %Normal0.0-0.5The [facility] HospitalCommunson healthcare [facility] on above: Performed By: #### CMP, LIPID #### [facility] [address] [place] [address] Dr. Kylee Jones #1.7 103/ulNormal1.2-3.8The [facility] HospitalComment on above:Performed By: #### CMP, LIPID #### [facility] [address] [place] [address] Dr. Kylee Casashocytes/100 WBC (Bld)30.9 %Ktkgxo65.5-60.0[facility] on above:Performed By: #### CMP, LIPID #### [facility] [address] [place] [address] Dr. Kylee BauerUAL DIFF REQNONormalThe [facility] HospitalCommunson healthcare [facility] on above: Performed By: #### CMP, LIPID #### [facility] [address] [place] [address] Dr. Kylee Beasley (RBC) [Entitic mass]27.4 orVrqijo39.9-34.0[facility] on above:Performed By: #### CMP, LIPID #### [facility] [address] [place] [address] Dr. Kylee Beasley (RBC) [Mass/Vol]33.5 g/qSInrfbn57.9-35.2[facility] on above:Performed By: #### CMP, LIPID #### [facility] [address] [place] [address] Dr. Kylee Beasley (RBC) [Entitic vol]81.9 lSMnfgtw55.0-94.0The [facility] HospitalComment on above:Performed By: #### CMP, LIPID #### [facility] [address] [place] [address] [address] Kylee Abarca #0.7 103/ulNormal0.3-0.8The [facility] Medical Centerment on above:Performed By: #### CMP, LIPID #### [facility] [address] [place] [address] [address] Kylee Mirelesocytes/100 WBC (Bld)12.9 %Critically high1.7-12.0The [facility] HospitalCommunson healthcare [facility] on above:Performed By: #### CMP, LIPID #### [facility] [address] [place] [address] Dr. Kylee Shook #2.9 103/ulNormal1.4-6.5[facility] on above:Performed By: #### CMP, LIPID #### [facility] [address] [place] [address] Dr. Kylee Martinutrophils/100 WBC (Bld)52.7 %Sbljio15.0-75.0[facility] on above:Performed By: #### CMP, LIPID #### [facility] [address] [place] [address] Dr. Kylee BunchPLT213 103/ttHtyupc344-967Uuj [facility] on above: Performed By: #### CMP, LIPID #### [facility] [address] [place] [address] Dr. Kylee BunchRBC4.41 106/ulCritically low4.70-6.10[facility] on above:Performed By: #### CMP, LIPID #### [facility] [address] [place] [address] Dr. Kylee BunchWBC5.4 103/ulNormal4.0-11.0[facility] on above: Performed By: #### CMP, LIPID #### [facility] [address] [place] [address] Dr. Kylee JhaID PROFILEon 85-50-4588YEQI-HDL RATIO NORMSEE BELOWNormalThe [facility] Moines HospitalComment on above:Result Comment: 3.3 - 4.4 LOW RISK 4.4 - 7.1 AVERAGE RISK 7.1 - 11.0 MODERATE RISK >11.0 HIGH RISKPerformed By: #### CMP, LIPID #### [facility] [address] [place] [address] [address] Kylee BunchCholesterol [Mass/Vol]166 mg/dLNormal<=200[facility] Comment on above:Performed By: #### CMP, LIPID #### [facility] [address] [place] [address] [address] Kylee BunchCholesterol in HDL [Mass/Vol]71 mg/dLCritically bmlx45-93RtxMercy Health St. Charles HospitalComment on above:Performed By: #### CMP, LIPID #### [facility] [address] [place] [address] [address] Kylee BunchCholesterol in LDL [Mass/Vol]84.8 mg/dLOhio Valley Surgical HospitalComment on above:Performed By: #### CMP, LIPID #### [facility] [address] [place] [address] [address] Kylee Garyestersalinas.total/Cholesterol in HDL [Mass ratio]2.3 {ratio} NormalMercy Health St. Charles HospitalComment on above:Performed By: #### CMP, LIPID #### [facility] [address] [place] [address] Dr. Kylee BunchHDL NORMAL> or = 60 mg/dl - LOW CARDIOVASCULAR RISK <40 mg/dl - HIGH CARDIOVASCULAR RISKOhio Valley Surgical HospitalComment on above:Performed By: #### CMP, LIPID #### [facility] [address] [place] [address] Dr. Kylee BunchLDL CALC NORMALSEE BELOWOhio Valley Surgical HospitalComment on above:Result Comment: <100 mg/dl OPTIMAL 100 - 129 mg/dl NEAR OR ABOVE OPTIMAL 130 - 159 mg/dl BORDERLINE HIGH 160 - 189 mg/dl HIGH >190 mg/dl VERY HIGH Performed By: #### CMP, LIPID #### [facility] [address] [place] [address] Dr. Kylee BunchTriglyceride [Mass/Vol]51 mg/dLNormal<=150The [facility] Comment on above:Performed By: #### CMP, LIPID #### [facility] [address] [place] [address] Dr. Kylee BunchVLDL CALC10.2 mg/dLNormalThe [facility] HospitalComment on above: Performed By: #### CMP, LIPID #### [facility] [address] [place] [address] Dr. Kylee HernandezALBUMIN, RAND URon 81-36-3482rWZR2.0 mg/LNormal<=30.0The [facility] HospitalComment on above:Performed By: #### MALBR #### [facility] [address] [place] [address] Dr. Kylee BunchPROF 14(COMP METB)on 15-67-6737Yofasur [Mass/Vol]3.5 g/dLNormal 3.4-5.0The [facility] HospitalComment on above:Performed By: #### CMP, LIPID #### [facility] [address] [place] [address] Dr. Kylee BunchAlbumin/Globulin [Mass ratio]1.0 {ratio}NormalThe [facility] HospitalComment on above:Performed By: #### CMP, LIPID #### [facility] [address] [place] [address] Dr. Kylee Forman [Catalytic activity/Vol]97 U/GCjutvk57-831Fmb [facility] HospitalComment on above:Performed By: #### CMP, LIPID #### [facility] [address] [place] [address] Dr. Kylee Shelton [Catalytic activity/Vol]29 U/XIgpcgx57-18Kqr [facility] HospitalComment on above:Performed By: #### CMP, LIPID #### [facility] [address] [place] [address] Dr. Kylee Warner gap [Moles/Vol]6.7 mmol/LNormalThe [facility] HospitalComment on above:Performed By: #### CMP, LIPID #### [facility] [address] [address] [address] Kylee BunchAST [Catalytic activity/Vol]28 U/HCcxpme59-69Svg [facility] HospitalComment on above:Performed By: #### CMP, LIPID #### [facility] [address] [address] [address] Kylee BunchBilirubin [Mass/Vol]0.4 mg/dLNormal0.2-1.0The [facility] Comment on above:Performed By: #### CMP, LIPID #### [facility] [address] [address] [address] Kylee BunchCalcium [Mass/Vol]8.9 mg/dLNormal8.5-10.1The [facility] Comment on above:Performed By: #### CMP, LIPID #### [facility] [address] [address] [address] Kylee BunchChloride [Moles/Vol]99 mmol/OTpfquu32-030Dee [facility] Comment on above:Performed By: #### CMP, LIPID #### [facility] [address] [address] [address] Kylee BunchCO2 [Moles/Vol]33.4 mmol/LCritically high21.0-32.0The [facility] HospitalComment on above:Performed By: #### CMP, LIPID #### [facility] [address] [address] [address] Kylee BunchCreatinine [Mass/Vol]0.80 mg/dLNormal0.70-1.30The [facility] HospitalComment on above:Performed By: #### CMP, LIPID #### [facility] [address] [place] [address] Dr. Kylee SteinbergGFR-AF ST LUCIAN>60Normal>=60The [facility] HospitalComment on above:Performed By: #### CMP, LIPID #### [facility] [address] [place] [address] Dr. Kylee SteinbergGFR-NON AF ST LUCIAN>60Normal>=60The [facility] HospitalComment on above:Performed By: #### CMP, LIPID #### [facility] [address] [address] [address] Kylee BunchGlobulin (S) [Mass/Vol]3.4 g/dLNormMercy Health St. Elizabeth [place] HospitalComment on above:Performed By: #### CMP, LIPID #### [facility] [address] [address] [address] Kylee BunchGlucose [Mass/Vol]188 mg/dLCritically asme46-411Xzx [facility] HospitalComment on above:Performed By: #### CMP, LIPID #### [facility] [address] [place] [address] Dr. Kylee BunchPotassium [Moles/Vol]4.1 mmol/LNormal3.5-5.1The [facility] Comment on above:Performed By: #### CMP, LIPID #### [facility] [address] [place] [address] Dr. Kylee BunchProtein [Mass/Vol]6.9 g/dLNormal6.4-8.2The [facility] Comment on above:Performed By: #### CMP, LIPID #### [facility] [address] [place] [address] Dr. Kylee BunchSodium [Moles/Vol]135 mmol/LCritically gel881-070Gtp [facility] HospitalComment on above:Performed By: #### CMP, LIPID #### [facility] [address] [place] [address] Dr. Kylee BunchUrea nitrogen [Mass/Vol]15.0 mg/dLNormal7.0-18.0The [facility] HospitalComment on above:Performed By: #### CMP, LIPID #### [facility] [address] [place] [address] Dr. Kylee Saenz nitrogen/Creatinine [Mass ratio]18.8 mg/mgNoFlower HospitalComment on above:Performed By: #### CMP, LIPID #### [facility] [address] [place] [address] Dr. Kylee BunchUA RANDOM W/MICROSCOPICon [id number] SEENNormalNONE SEENMercy Health St. Charles HospitalComment on above:Performed By: #### CMP, LIPID #### [facility] [address] [address] [address] Kylee BunchBilirubin Ql (U)NegativeNormalNEGDelaware County Hospital Comment on above:Performed By: #### CMP, LIPID #### [facility] [address] [address] [address] Kylee Perry SEENNormalNONE SEENMercy Health St. Charles HospitalComment on above:Performed By: #### CMP, LIPID #### [facility] [address] [address] [address] Kylee BunchClarity (U)CLEARNormalCLEARMercy Health St. Charles HospitalComment on above: Performed By: #### CMP, LIPID #### [facility] [address] [place] [address] Dr. Kylee Kowalskilor (U)LT. YELLOWNormalYELLOWMercy Health St. Charles HospitalComment on above:Performed By: #### CMP, LIPID #### [facility] [address] [place] [address] Dr. Kylee BunchCrystals LM Nom (Urine sed)NONE SEENNormalNONE SEENMercy Health St. Charles HospitalComment on above:Performed By: #### CMP, LIPID #### [facility] [address] [place] [address] Dr. Pichardo ChangEpithelial cells LM Ql (Urine sed)FEWAbnormalNONE SEEN /RAREMercy Health St. Charles HospitalComment on above:Performed By: #### CMP, LIPID #### [facility] [address] [address] [address] Kylee BunchGlucose Ql (U)NegativeNormalNEGDelaware County HospitalComment on above:Performed By: #### CMP, LIPID #### [facility] [address] [place] [address] Dr. Kylee BunchHemoglobin Ql (U)TRACE-LYSEDAbfreeman cancer institutealNEGDelaware County Hospital Comment on above:Performed By: #### CMP, LIPID #### [facility] [address] [address] [address] Kylee Barrera Ql (U)NegativeNormalNEGATIVEThe [facility] HospitalComment on above:Performed By: #### CMP, LIPID #### [facility] [address] [address] [address] Kylee BunchLEUKOCYTESNegativeNormalNEGATIVEThe [facility] HospitalComment on above:Performed By: #### CMP, LIPID #### [facility] [address] [address] [address] Kylee AguirreCOUSVERO SEENNormalNONE SEENMercy Health St. Charles HospitalComment on above:Performed By: #### CMP, LIPID #### [facility] [address] [address] [address] Kylee Dooley Ql (U)NegativeNormalNEGATIVEThe [facility] HospitalComment on above:Performed By: #### CMP, LIPID #### [facility] [address] [place] [address] Dr. Kylee BunchpH (U)6.0 [pH]Normal5-9The [facility] HospitalComment on above: Performed By: #### CMP, LIPID #### [facility] [address] [address] [address] Kylee BunchMwvmuEDB9-2Iqikimdb2-6Bot [facility] on above:Performed By: #### CMP, LIPID #### [facility] [address] [place] [address] Dr. Kylee BunchSPEC GRAVITY1.645Xxkmgk2.005-<=1.025The [facility]lyria Medical Centerment on above:Performed By: #### CMP, LIPID #### [facility] [address] [place] [address] Dr. Kylee Rodas PROTEINNegativeNormalNEGATIVE/ TRACEThe [facility] on above:Performed By: #### CMP, LIPID #### [facility] [address] [place] [address] Dr. Kylee Correiabilsandhya Qn (U)0.2 {Gemini'U}/dLNormal0.2 - 1.0The [facility] HospitalComment on above:Performed By: #### CMP, LIPID #### [facility] [address] [place], [place] [address] Dr. Kylee العلي SEENNormalNONE SEENMercy Health St. Charles HospitalComment on above: Performed By: #### CMP, LIPID #### [facility] [address] [place], [place] [address] Dr. Kylee Christiansen Metab w/rfx MGon 01-07-2022(cont.)NormalAvita Health System Bucyrus HospitalComment on above:Result Comment: Average GFR for 70 or more years old: 75 mL/min/1.73sq m Chronic Kidney Disease: <60 mL/min/1.73sq m Kidney failure: <15 mL/min/1.73sq m eGFR calculated using average adult body mass. Additional eGFR calculator available at: http://www.KeriCure/multiple_crcl_2012.htmPerformed By: #### CDP, MELVIN, BMPX, MG, IPF #### [employer] [address] [place] [address] Cold Type Artist: Francisco J Fonseca MDAnion gap [Moles/Vol]9 mmol/LNormal9-17[facility] HospitalComment on above:Performed By: #### CDP, MELVIN, BMPX, MG, IPF #### [employer] [address] [place] [address] Cold Type Artist: MARLENY Brandonalcium [Mass/Vol]7.8 mg/dLLow8.6-10.4[facility] HospitalComment on above:Performed By: #### CDP, MELVIN, BMPX, MG, IPF #### [employer] [address] [place] [address] Cold Type Artist: MARLENY Brandonhloride [Moles/Vol]102 mmol/EIyemch85-597ZuobkAvita Health System Bucyrus HospitalComment on above:Performed By: #### CDP, MELVIN, BMPX, MG, IPF #### [employer] [address] [place] [address] Cold Type Artist: Francisco J Fonseca MDCO2 [Moles/Vol]24 mmol/HWftdzm68-62MiuknAvita Health System Bucyrus HospitalComment on above:Performed By: #### CDP, MELVIN, BMPX, MG, IPF #### [facility] [address] [place] [address] Cold Type Artist: Francisco J Fonseca MDCreatinine [Mass/Vol]0.49 mg/dLLow0.70-1.20[facility] HospitalComment on above:Performed By: #### CDP, MELVIN, BMPX, MG, IPF #### [facility] [address] [place] [address] Cold Type Artist: Francisco J Fonseca MDGFR, Amer>60Normal>60[facility] HospitalComment on above:Performed By: #### CDP, MELVIN, BMPX, MG, IPF #### [facility] [address] [place] [address] Cold Type Artist: Francisco J Fonseca MDGFR,non Amer>60Normal>60[facility] HospitalComment on above:Performed By: #### CDP, MELVIN, BMPX, MG, IPF #### [facility] [address] [place] [address] Cold Type Artist: Francisco J Fonseca MDGlucose [Mass/Vol]79 mg/cRTxizji95-09Klxag Orthopaedic HospitalComment on above:Performed By: #### CDP, MELVIN, BMPX, MG, IPF #### [facility] [address] [place] [address] Cold Type Artist: Francisco J Fonseca MDPotassium [Moles/Vol]3.5 mmol/LLow3.7-5.3MWhittier Hospital Medical CenterComment on above:Performed By: #### CDP, MELVIN, BMPX, MG, IPF #### [facility] [address] [place] [address] Cold Type Artist: MEIR Brandonodium [Moles/Vol]135 mmol/UZoszke702-845CatzvAvita Health System Bucyrus HospitalComment on above:Performed By: #### CDP, MELVIN, BMPX, MG, IPF #### [facility] [address] [place] [address] Cold Type Artist: Francisco J Fonseca MDUrea nitrogen [Mass/Vol]7 mg/dLLow8-23[facility] HospitalComment on above:Performed By: #### CDP, MELVIN, BMPX, MG, IPF #### [facility] [address] [place] [address] Cold Type Artist: MARLENY Brandon with Diffon 70-31-6572Nsi. Basophil0.00 k/uL Normal0.0-0.2[facility] Orthopaedic HospitalComment on above:Performed By: #### CDP #### [address] [address] Cold Type Artist: Vidhya Brandon.Imm.Granulocyte0.00 k/uLNormal0.00-0.30[facility] HospitalComment on above:Performed By: #### CDP #### [facility] [address] [place] [address] Cold Type Artist: Vidhya Brandon.Neutrophil (Seg)8.33 k/uLHigh1.8-7.7MerKindred HospitalComment on above:Performed By: #### CDP #### [facility] [address] [place] [address] Cold Type Artist: Francisco J Fonseca MDEosinophils (Bld) [#/Vol]0.11 10*3/uLNormal 0.0-0.4[facility] HospitalComment on above:Performed By: #### CDP #### [facility] [address] [place] [address] Cold Type Artist: Francisco J Fonseca MDLymphocytes (Bld) [#/Vol]1.22 10*3/uLNormal 1.0-4.8[facility] HospitalComment on above:Performed By: #### CDP #### [address] [address] Cold Type Artist: MARK Brandononocytes (Bld) [#/Vol]1.44 10*3/uLHigh0.1-0.8 [facility] HospitalComment on above:Performed By: #### CDP #### [address] [address] Cold Type Artist: Francisco J Fonseca MDNeutrophil (Seg)75 %Nomi35-43SgbsoAvita Health System Bucyrus HospitalComment on above:Performed By: #### CDP #### [address] [address] Cold Type Artist: Francisco J Fonseca MDNRBC Automated0.0 per 100 WBCNormal0.0[facility] HospitalComment on above:Performed By: #### CDP #### [address] [address] Cold Type Artist: FranciscoJ Fonseca MDWBC (Bld) [#/Vol]11.1 10*3/uLNormal3.5-11.3MWhittier Hospital Medical CenterComment on above:Performed By: #### CDP #### [address] [address] Cold Type Artist: Francisco J Fonseca MDBasophils/100 WBC (Bld)0 %Normal0-2BON [facility] HOSPITALCommunson healthcare [facility] on above:Performed By: #### CDP #### [address] [address] Cold Type Artist: Francisco J Fonseca MDEosinophils/100 WBC (Bld)1 %Normal1-4BON [facility] HOSPITALComment on above:Performed By: #### CDP #### [address] [address] Cold Type Artist: Toan Brandonmature granulocytes/100 WBC (Bld)0 %Lybyme6DKO [facility] HOSPITALComment on above:Performed By: #### CDP #### [address] [address] Cold Type Artist: Francisco J Fonseca MDLymphocytes/100 WBC (Bld)11 %Jzu03-52YOM [facility] HOSPITALComment on above:Performed By: #### CDP #### [address] [address] Cold Type Artist: MARK Brandononocytes/100 WBC (Bld)13 %High1-7BON [facility] HOSPITALComment on above:Performed By: #### CDP #### [address] [address] Cold Type Artist: MARK Brandonorphology Walter (Bld) [Interp]ANISOCYTOSIS PRESENTNormalBON [facility] HOSPITALCommunson healthcare [facility] hospital on above:Result Comment: MICROCYTOSIS PRESENT 1+ TARGET CELLS 1+ ACANTHOCYTESPerformed By: #### CDP #### [address] [address] Cold Type Artist: Francisco J Fonseca MDErythrocyte distribution width (RBC) [Ratio]17.3 %High11.8-14.4Mer[facility] Orthopaedic HospitalComment on above:Performed By: #### CDP #### [address] [address] Cold Type Artist: Francisco J Fonseca MDHematocrit (Bld) [Volume fraction]36.6 %Low 40.7-50.3Mer[facility] Orthopaedic HospitalComment on above:Performed By: #### CDP #### [address] [address] Cold Type Artist: Francisco J Fonseca MDHemoglobin (Bld) [Mass/Vol]13.0 g/dLNormal 13.0-17.0[facility] HospitalComment on above:Performed By: #### CDP #### [address] [address] Cold Type Artist: MARK BrandonCH (RBC) [Entitic mass]26.5 rrDazzrn58.2-33.5 [facility] HospitalComment on above:Performed By: #### CDP #### [address] [address] Cold Type Artist: MARK BrandonCHC (RBC) [Mass/Vol]35.5 g/zPBgim44.4-34.8[facility] HospitalComment on above:Performed By: #### CDP #### [address] Cold Type Artist: MARK BrandonCV (RBC) [Entitic vol]74.5 fLLow82.6-102.9[facility] HospitalComment on above:Performed By: #### CDP #### [address] [address] Cold Type Artist: Isra Brandontelet CountSee Reflexed IPF ResultNormal 138-453Av[facility] Bucyrus HospitalComment on above:Performed By: #### CDP #### [address] [address] Cold Type Artist: LEIGH BrandonBC (Bld) [#/Vol]4.91 10*6/uLNormal4.21-5.77 [facility] HospitalComment on above:Performed By: #### CDP #### [address] [address] Cold Type Artist: Francisco J Fonseca MDLaboratory - Chemistry and Chemistry - challenge on 65-85-9187Lvbphsgsk [Mass/Vol]1.5 mg/dLLow1.6 - 2.6 mg/dLBON SECOURS MERCY HEALTHAnion gap [Moles/Vol]9 mmol/L9 - 17 mmol/LBON SECOURS MERCY HEALTHCalcium [Mass/Vol]7.8 mg/dLLow8.6 - 10.4 mg/dLBON [facility]OURS MERCY HEALTHChloride [Moles/Vol]102 mmol/L98 - 107 mmol/LBON SECOURS MERCY HEALTHCO2 [Moles/Vol]24 mmol/L20 - 31 mmol/LBON SECOURS MERCY HEALTHCreatinine [Mass/Vol]0.49 mg/dLLow 0.70 - 1.20 mg/dLB[facility] MERCY HEALTHGFR/1.73 sq M.predicted MDRD (S/P/Bld) [Vol rate/Area][facility] MEDICAL CENTERNewco LS15 HEALTHComment on above:Average GFR for 70 or more years old: 75 mL/min/1.73sq m Chronic Kidney Disease: <60 mL/min/1.73sq m Kidney failure: <15 mL/min/1.73sq m eGFR calculated using average adult body mass. Additional eGFR calculator available at: http://www.KeriCure/multiple_crcl_2011.htm Glucose [Mass/Vol]79 mg/dL70 - 99 mg/dLBON SECOURS MERCY HEALTHPhosphate [Mass/Vol]2.3 mg/dLLow2.5 - 4.5 mg/dLB[facility] MERCY HEALTHPotassium [Moles/Vol]3.5 mmol/LLow3.7 - 5.3 mmol/LBON SECOURS MERCY HEALTHSodium [Moles/Vol]135 mmol/L135 - 144 mmol/LBON SECOURS FOST[facility] HOSPITALY HEALTHUrea nitrogen (BldV) [Mass/Vol]7 mg/dLLow8 - 23 mg/dLBON [facility] FOST[facility] CITY HOSPITALY HEALTHLaboratory - Hematology and Cell countson 46-16-4377Jofafexxi (Bld) [#/Vol]0.00 10*3/uLBON SECOURS MERCY HEALTHHematocrit (Bld) [Volume fraction]36.6 %Low40.7 - 50.3 %BON SECOURS PaperwovenY HEALTHHemoglobin (Bld) [Mass/Vol]13.0 g/dL13.0 - 17.0 g/dLBON SECGUERNSEY MEMORIAL HOSPITALH (RBC) [Entitic mass]26.5 pg25.2 - 33.5 pgCENTRA LYNCHBURG GENERAL HOSPITALHC (RBC) [Mass/Vol]35.5 g/yPJrfv87.4 - 34.8 g/dLBON SECGUERNSEY MEMORIAL HOSPITALV (RBC) [Entitic vol]74.5 fLLow82.6 - 102.9 fLWELLMONT [facility] Morphology Walter (Bld) [Interp]MICROCYTOSIS PRESENTBON [facility] Morphology Walter (Bld) [Interp]1+ TARGET CELLSWELLMONT LONESOME PINE MT. VIEW HOSPITALMorphology Walter (Bld) [Interp]1+ ACANTHOCYTESBON [facility] COMMUNITY HOSPITALPlatelet distribution width (Bld) [Ratio]17.3 %High11.8 - 14.4 %[facility] HOSPITALPlatelets (Bld) [#/Vol]See Reflexed IPF ResultBON [facility] FOSTORIA COMMUNITY HOSPITALRBC (Bld) [#/Vol] 4.91 10*6/uL4.21 - 5.77 m/uLWELLMONT LONESOME PINE MT. VIEW HOSPITALSegmented neutrophils/100 WBC (Bld)75 %High36 - 66 %[facility] HOSPITALWBC (Bld) [#/Vol]11.1 10*3/uL [facility] HOSPITALMagnesiumon 65-71-2583Vawncaqbk [Mass/Vol]1.5 mg/dLLow 1.6-2.6Mer[facility]opaedic HospitalComment on above:Performed By: #### CDP #### [employer] [address] [id number] Cold Type Artist: Maggie Brandon Panel Informationon 75-12-8091Cwtwlicg Eos # 0.11BON SECMERCY HEALTHAbsolute Immature Granulocyte0.00BON [facility] HOSPITALAbsolute Lymph #1.22BON SECMERCY HEALTHAbsolute Tillman #1.44HighJOHNSTON MEMORIAL HOSPITAL HEALTHInterpretation and review of laboratory resultsAbnormalBON [facility] COMM[facility]ITY HOSPITALNRBC Automated0.00.0 per 100 WBCBON PROMEDICA FOSTORIA COMMUNITY HOSPITALSegs Absolute8.33HighBON SECGUNDERSEN ST JOSEPH'S HOSPITAL AND CLINICSPlatelet, Euxywdvryckd976OHF [facility] HOSPITALComment on above:ORDERED BY LABPlatelet, Immature Qmbuvztp17.1 %1.1 - 10.3 %BON [facility] COMMUNITY HOSPITALComment on above: ORDERED BY LABWELLMONT LONESOME PINE MT. VIEW HOSPITALInterpretation and review of laboratory resultsAbnormalBON SECVETER[facility] HEALTHGFR >60>60 mL/minBON [facility]OST[facility] COMMUNITY HOSPITALGFR Non->60>60 mL/minWELLMONT LONESOME PINE MT. VIEW HOSPITALInterpretation and review of laboratory results AbnormalBON [facility] MEDICAL CENTERPLT, Immature Fract.on 56-44-1071Msunvhkj, Fluoresc.230 k/fUFuofld078-191BitpeAvita Health System Bucyrus HospitalComment on above:Result Comment: ORDERED BY LABPerformed By: #### CDP #### [facility] PROTEIN [facility]OUN[facility] [address] [place] [address] Cold Type Artist: SUSANNAH Brandon, Immature Fract.10.1 %Normal1.1-10.3MWhittier Hospital Medical CenterComment on above:Result Comment: ORDERED BY LAB Performed By: #### CDP #### [employer] [address] [place], [place] [id number] Cold Type Artist: Eliane Brandonsphokhari, Inorg.on 45-06-1074Ldocpomzhi, Inorg.2.3 mg/dLLow2.5-4.5[facility] HospitalComment on above: Performed By: #### CDP, MELVIN, BMPX, MG, IPF #### [facility] PROTEIN [facility]OUN[facility] [address] [place] [address] Cold Type Artist: Rubina Brandon Metab w/rfx MGon 01-06-2022(cont.)Normal [facility] HospitalComment on above:Result Comment: Average GFR for 70 or more years old: 75 mL/min/1.73sq m Chronic Kidney Disease: <60 mL/min/1.73sq m Kidney failure: <15 mL/min/1.73sq m eGFR calculated using average adult body mass. Additional eGFR calculator available at: http://www.Relify.[employer]/multiple_crcl_2012.htmPerformed By: #### CDP, MELVIN, BMPX, IPF #### [employer] [facility] [address] [place] [address] Cold Type Artist: Francisco J Fonseca MDAnion gap [Moles/Vol]11 mmol/LNormal9-17[facility] HospitalComment on above:Performed By: #### CDP, MELVIN, BMPX, IPF #### [employer] [address] [place] [address] Cold Type Artist: Francisco J Fonseca MDCalcium [Mass/Vol]7.7 mg/dLLow8.6-10.4[facility] HospitalComment on above:Performed By: #### CDP, EMLVIN, BMPX, IPF #### [employer] [address] [place] [address] Cold Type Artist: Francisco J Fonseca MDChloride [Moles/Vol]99 mmol/FLvxlqq68-412XzkhhAvita Health System Bucyrus HospitalComment on above:Performed By: #### CDP, MELVIN, BMPX, IPF #### [employer] [address] [place] [address] Cold Type Artist: Francisco J Fonseca MDCO2 [Moles/Vol]23 mmol/NHxhljf77-13KdrlmAvita Health System Bucyrus HospitalComment on above:Performed By: #### CDP, MELVIN, BMPX, IPF #### [employer] [facility] [address] [place] [address] Cold Type Artist: Francisco J Fonseca MDCreatinine [Mass/Vol]0.50 mg/dLLow0.70-1.20[facility] HospitalComment on above:Performed By: #### CDP, MELVIN, BMPX, IPF #### [facility] [address] [place] [address] Cold Type Artist: Francisco J Fonseca MDGFR, Amer>60Normal>60[facility]opaedic HospitalComment on above:Performed By: #### CDP, MELVIN, BMPX, IPF #### [facility] [address] [place] [address] Cold Type Artist: Francisco J Fonseca MDGFR,non Amer>60Normal>60MerKindred HospitalComment on above:Performed By: #### CDP, MELVIN, BMPX, IPF #### [facility] [address] [place] [address] Cold Type Artist: Francisco J Fonseca MDGlucose [Mass/Vol]149 mg/cMGrjs87-71XrmyxWhittier Hospital Medical CenterComment on above:Performed By: #### CDP, MELVIN, BMPX, IPF #### [facility] [address] [place] [address] Cold Type Artist: DENISE Brandonotassium [Moles/Vol]3.6 mmol/LLow3.7-5.3MWhittier Hospital Medical CenterComment on above:Performed By: #### CDP, MELVIN, BMPX, IPF #### [facility] [address] [place] [address] Cold Type Artist: MEIR Brandonodium [Moles/Vol]133 mmol/WJyx401-272YllyvAvita Health System Bucyrus HospitalComment on above:Performed By: #### CDP, MELVIN, BMPX, IPF #### [facility] [address] [place] [address] Cold Type Artist: Francisco J Fonseca MDUrea nitrogen [Mass/Vol]11 mg/dLNormal8-23MerKindred HospitalComment on above:Performed By: #### CDP, MELVIN, BMPX, IPF #### [facility] [address] [place] [address] Cold Type Artist: KRISTOFER Brandon with Diffon [id number]. Basophil0.03 k/uL Normal0.00-0.20[facility] HospitalComment on above:Performed By: #### CDP, MELVIN, BMPX, IPF #### [facility] [address] [place] [address] Cold Type Artist: Vidhya Brandon.Imm.Granulocyte0.05 k/uLNormal0.00-0.30[facility] HospitalComment on above:Performed By: #### CDP, MELVIN, BMPX, IPF #### [employer] [facility] [address] [place] [address] Cold Type Artist: Vidhya Brandon.Neutrophil (Seg)11.21 k/uLHigh1.50-8.10[facility] HospitalComment on above:Performed By: #### CDP, MELVIN, BMPX, IPF #### [employer] [facility] [address] [place] [address] Cold Type Artist: Francisco J Fonseca MDBasophils/100 WBC (Bld)0 %Normal0-2MWhittier Hospital Medical CenterComment on above:Performed By: #### CDP, MELVIN, BMPX, IPF #### [employer] [facility] [address] [place] [address] Cold Type Artist: Francisco J Fonseca MDEosinophils (Bld) [#/Vol]0.09 10*3/uLNormal 0.00-0.44[facility] HospitalComment on above:Performed By: #### CDP, MELVIN, BMPX, IPF #### [employer] [facility] [address] [place] [address]20 Cold Type Artist: MAXIM Brandonosinophils/100 WBC (Bld)1 %Normal1-4[facility] HospitalComment on above:Performed By: #### CDP, MELVIN, BMPX, IPF #### [address] [address] Cold Type Artist: Francisco J Fonseca MDErythrocyte distribution width (RBC) [Ratio]18.4 %High11.8-14.4[facility] HospitalComment on above:Performed By: #### CDP, MELVIN, BMPX, IPF #### [place] [address] Cold Type Artist: Francisco J Fonseca MDHematocrit (Bld) [Volume fraction]38.2 %Low 40.7-50.3Mwvumedicine barnesville hospitaly Orthopaedic HospitalComment on above:Performed By: #### CDP, MELVIN, BMPX, IPF #### [place] [address] Cold Type Artist: Francisco J Fonseca MDHemoglobin (Bld) [Mass/Vol]13.2 g/dLNormal 13.0-17.0[facility] HospitalComment on above:Performed By: #### CDP, MELVIN, BMPX, IPF #### [place] [address] Cold Type Artist: Francisco J Fonseca MDImmature granulocytes/100 WBC (Bld)0 %Normal0 [facility] HospitalComment on above:Performed By: #### CDP, MELVIN, BMPX, IPF #### [place] [address] Cold Type Artist: Francisco J Fonseca MDLymphocytes (Bld) [#/Vol]0.82 10*3/uLLow 1.10-3.70[facility] HospitalComment on above:Performed By: #### CDP, MELVIN, BMPX, IPF #### [place] [address] Cold Type Artist: Jeremie Brandonmphocytes/100 WBC (Bld)6 %Pch56-48VxilkAvita Health System Bucyrus HospitalComment on above:Performed By: #### CDP, MELVIN, BMPX, IPF #### [facility] [address] [place] [address] Cold Type Artist: MARK BrandonCH (RBC) [Entitic mass]26.7 bcMlhtpp34.2-33.5 [facility] HospitalComment on above:Performed By: #### CDP, MELVIN, BMPX, IPF #### [facility] [address] [place] [address] Cold Type Artist: MARK BrandonCHC (RBC) [Mass/Vol]34.6 g/mSFckvya15.4-34.8 [facility] HospitalComment on above:Performed By: #### CDP, MELVIN, BMPX, IPF #### [facility] [address] [place] [address] Cold Type Artist: MARK BrandonCV (RBC) [Entitic vol]77.2 fLLow82.6-102.9[facility] HospitalComment on above:Performed By: #### CDP, MELVIN, BMPX, IPF #### [facility] [address] [place] [address]6570 Cold Type Artist: MARK Brandononocytes (Bld) [#/Vol]1.14 10*3/uLNormal 0.10-1.20[facility] HospitalComment on above:Performed By: #### CDP, MELVIN, BMPX, IPF #### [facility] [address] [place] [address]45 Cold Type Artist: MARK Brandononocytes/100 WBC (Bld)9 %Normal3-12[facility] HospitalComment on above:Performed By: #### CDP, MELVIN, BMPX, IPF #### [facility] [address] [place] [address] Cold Type Artist: Francisco J Fonseca MDNeutrophil (Seg)84 %Ibea69-71JrvdrAvita Health System Bucyrus HospitalComment on above:Performed By: #### CDP, MELVIN, BMPX, IPF #### [facility] [address] [place] [address]56 Cold Type Artist: Francisco J Fonseca MDNRDENISE Automated0.0 per 100 WBCNormal0.0[facility] HospitalComment on above:Performed By: #### CDP, MELVIN, BMPX, IPF #### [address] [address] Cold Type Artist: Isra Brandontelet CountSee Reflexed IPF ResultNormal 138-453[facility] HospitalComment on above:Performed By: #### CDP, MELVIN, BMPX, IPF #### [address] [address] Cold Type Artist: LEIGH BrandonBC (Bld) [#/Vol]4.95 10*6/uLNormal4.21-5.77 [facility] HospitalComment on above:Performed By: #### CDP, MELVIN, BMPX, IPF #### [address] [address] Cold Type Artist: YOLA Brandon morphology finding Nom (Bld)ANISOCYTOSIS PRESENTNormalAvita Health System Bucyrus HospitalComment on above:Result Comment: MICROCYTOSIS PRESENTPerformed By: #### CDP, MELVIN, BMPX, IPF #### [address] [address] Cold Type Artist: ENRIQUE BrandonBC (Bld) [#/Vol]13.3 10*3/uLHigh3.5-11.3MWhittier Hospital Medical CenterComment on above:Performed By: #### CDP, MELVIN, BMPX, IPF #### [address] [address] Cold Type Artist: Francisco J Fonseca MDLaboratory - Chemistry and Chemistry - challenge on [id number] gap [Moles/Vol]11 mmol/L9 - 17 mmol/LBON [facility]OU[facility] Calcium [Mass/Vol]7.7 mg/dLLow8.6 - 10.4 mg/dLBON [facility]OU[facility] MERCY HEALTHChloride [Moles/Vol]99 mmol/L98 - 107 mmol/LBON [facility]OURS MERCY HEALTHCO2 [Moles/Vol]23 mmol/L20 - 31 mmol/LBON [facility]RS MER[facility] HEALTHCreatinine [Mass/Vol]0.5 mg/dLLow 0.70 - 1.20 mg/dLBON [facility] MERCY HEALTHGFR/1.73 sq M.predicted MDRD (S/P/Bld) [Vol rate/Area][facility] HEALTHComment on above:Average GFR for 70 or more years old: 75 mL/min/1.73sq m Chronic Kidney Disease: <60 mL/min/1.73sq m Kidney failure: <15 mL/min/1.73sq m eGFR calculated using average adult body mass. Additional eGFR calculator available at: http://www.[employer]eri[employer]/multiple_crcl_2012.htm Glucose [Mass/Vol]149 mg/dOBlar39 - 99 mg/dLBON SECOURS MERCY HEALTHPhosphate [Mass/Vol]2.5 mg/dL2.5 - 4.5 mg/dLB[facility] HEALTHPotassium [Moles/Vol] 3.6 mmol/LLow3.7 - 5.3 mmol/LBON SECOURS MERCY HEALTHSodium [Moles/Vol]133 mmol/NLnt798 - 144 mmol/LBON [facility]OURS MERCY HEALTHUrea nitrogen (BldV) [Mass/Vol] 11 mg/dL8 - 23 mg/dLBON [facility]OU[facility] MERCY HEALTHLaboratory - Hematology and Cell countson [id number] (Bld) [#/Vol]0.03 10*3/uLBON SECOURS MERCY [facility]ALTH Basophils/100 WBC (Bld)0 %0 - 2 %[facility] HEALTHEosinophils/100 WBC (Bld)1 %1 - 4 %[facility] HEALTHHematocrit (Bld) [Volume fraction]38.2 % Low40.7 - 50.3 %[facility]ITALY HEALTHHemoglobin (Bld) [Mass/Vol]13.2 g/dL13.0 - 17.0 g/dLBON SEC[facility]ITALY HEALTHImmature granulocytes/100 WBC (Bld)0 %0B[facility] HEALTHLymphocytes/100 WBC (Bld)6 %Low24 - 43 %BON SECGUERNSEY MEMORIAL HOSPITALH (RBC) [Entitic mass]26.7 pg25.2 - 33.5 pgBON SECOURS [facility] FOUNDATIONHC (RBC) [Mass/Vol]34.6 g/dL28.4 - 34.8 g/dLBON SECGUERNSEY MEMORIAL HOSPITALV (RBC) [Entitic vol]77.2 fLLow82.6 - 102.9 fLHONORHEALTH SONORAN CROSSING [facility] SECLAKEVIEW [facility] HEALTHMonocytes/100 WBC (Bld)9 %3 - 12 %[facility] HEALTHPlatelet distribution width (Bld) [Ratio]18.4 %High11.8 - 14.4 %[facility]ITALY HEALTHPlatelets (Bld) [#/Vol]See Reflexed IPF ResultBON SECOURS [facility]IA CITY [facility]OSPITALY HEALTHRBC (Bld) [#/Vol]4.95 10*6/uL4.21 - 5.77 m/uLHONORHEALTH SONORAN CROSSING [facility]ENTER SECNEW WAYSIDE EMERGENCY HOSPITALY HEALTHRBC (Bld) [#/Vol]ANISOCYTOSIS PRESENTJOHNSTON MEMORIAL HOSPITAL HEALTHComment on above:MICROCYTOSIS PRESENTSegmented neutrophils/100 WBC (Bld)84 %High36 - 65 %BON SECLAKEVIEW [facility]ION[facility]ENTER HEALTHWBC (Bld) [#/Vol]13.3 10*3/uLHighBON SECNEW WAYSIDE EMERGENCY HOSPITALY HEALTHNo Panel Informationon 01-06-2022 Platelet, Riytauixlpfw796VIP [facility]RS [facility]ITALY HEALTHPlatelet, Immature Dnxjtjhz42.1 %1.1 - 10.3 %[facility] HEALTHB[facility]ITALY HEALTHAbsolute Eos #0.09 [facility] HEALTHAbsolute Immature Granulocyte0.05[facility] HEALTHAbsolute Lymph #0.82LowHONORHEALTH SONORAN CROSSING [facility]ENTER SECOURS MERCY HEALTHAbsolute Tillman #1.14[facility]Y HEALTHInterpretation and review of laboratory resultsAbnormalBON [facility]ITALY HEALTHNRBC Automated0.00.0 per 100 WBCHONORHEALTH [facility]ONORAN CR[facility] SECOURS MERCY HEALTHSegs Xmabpyol54.21HighBON SECOURS [facility]OS[facility]ITALY HEALTHB[facility] HEALTHGFR >60>60 mL/minBON [facility] HEALTHGFR Non->60>60 mL/minBON SECNEW WAYSIDE EMERGENCY HOSPITALY HEALTHInterpretation and review of laboratory results AbnormalBON SECOURS [facility] CENTERBON [facility] HEALTHPLT, Immature Fract.on [id number], Fluoresc.252 k/lZNpgzle067-298YdmotAvita Health System Bucyrus HospitalComment on above:Performed By: #### CDP, MELVIN, BMPX, IPF #### [employer] [address] [place] [address] Cold Type Artist: SUSANNAH Brandon, Immature Fract.10.1 %Normal1.1-10.3MWhittier Hospital Medical CenterComment on above:Performed By: #### CDP, MELVIN, BMPX, IPF #### [employer] [address] [place] [address] Cold Type Artist: DENISE Brandonhosphorus, Inorg.on 54-60-8125Pnspwrhlda, Inorg.2.5 mg/dLNormal2.5-4.5[facility] HospitalComment on above: Performed By: #### CDP, MELVIN, BMPX, IPF #### [employer] [address] [place] [address] Cold Type Artist: Ej Brandonc Metab w/rfx MGon [id number] [Moles/Vol]3.4 mmol/LLow3.7-5.3MWhittier Hospital Medical CenterComment on above: Performed By: #### CDP, MELVIN, BMPX, IPF #### [employer] [address] [place] [address] Cold Type Artist: Francisco J Fonseca MDUrea nitrogen [Mass/Vol]14 mg/dLNormal8-23[facility] HospitalComment on above:Performed By: #### CDP, MELVIN, BMPX, IPF #### [facility] [address] [place] [address] Cold Type Artist: Francisco J Fonseca MDAnion gap [Moles/Vol]12 mmol/LNormal9-17[facility] HEALTHComment on above:Performed By: #### CDP, MELVIN, BMPX, IPF #### [facility] [address] [place] [address] Cold Type Artist: Francisco J Fonseca MDCalcium [Mass/Vol]8.1 mg/dLLow8.6-10.4[facility] HEALTHComment on above:Performed By: #### CDP, MELVIN, BMPX, IPF #### [facility] [address] [place] [address] Cold Type Artist: Francisco J Fonseca MDChloride [Moles/Vol]98 mmol/VDtrzgg63-483GII [facility] HEALTHComment on above:Performed By: #### CDP, MELVIN, BMPX, IPF #### [facility] [address] [place] [address] Cold Type Artist: Francisco J Fonseca MDCO2 [Moles/Vol]24 mmol/WIxxxww93-70USQ [facility] HEALTHComment on above:Performed By: #### CDP, MELVIN, BMPX, IPF #### [facility] [address] [place] [address] Cold Type Artist: MARLENY Brandonreatinine [Mass/Vol]0.54 mg/dLLow0.70-1.20[facility] HEALTHComment on above:Performed By: #### CDP, MELVIN, BMPX, IPF #### [facility] [address] [place] [address] Cold Type Artist: Francisco J Fonseca MDGlucose [Mass/Vol]122 mg/uHTrdc19-96RBA [facility] HEALTHComment on above:Performed By: #### CDP, MELVIN, BMPX, IPF #### [facility] [address] [place] [address] Cold Type Artist: Francisco J Fonseca MDSodium [Moles/Vol]134 mmol/UKcf193-352JOW [facility] HOSPITALComment on above:Performed By: #### CDP, MELVIN, BMPX, IPF #### [facility] [address] [place] [address] Cold Type Artist: Francisco J Fonseca MD(cont.)[facility] Comment on above:Result Comment: Average GFR for 70 or more years old: 75 mL/min/1.73sq m Chronic Kidney Disease: <60 mL/min/1.73sq m Kidney failure: <15 mL/min/1.73sq m eGFR calculated using average adult body mass. Additional eGFR calculator available at: http://www.KeriCure/multiple_crcl_2012.htmPerformed By: #### CDP, MELVIN, BMPX, IPF #### [address] [address] Cold Type Artist: Francisco J Fonseca MDAnion gap [Moles/Vol]11 mmol/LNormal9-17[facility] HospitalComment on above:Performed By: #### CDP, MELVIN, BMPX, IPF #### [facility] [address] [place] [address] Cold Type Artist: MARLENY Brandonalcium [Mass/Vol]9.1 mg/dLNormal8.6-10.4[facility] HospitalComment on above:Performed By: #### CDP, MELVIN, BMPX, IPF #### [facility] [address] [place] [address] Cold Type Artist: Francisco J Fonseca MDChloride [Moles/Vol]99 mmol/IUzmdfo03-858WfkgcAvita Health System Bucyrus HospitalComment on above:Performed By: #### CDP, MELVIN, BMPX, IPF #### [facility] [address] [place] [address] Cold Type Artist: Francisco J Madoff, MDCO2 [Moles/Vol]25 mmol/UWqlgsu70-19ZdtmiAvita Health System Bucyrus HospitalComment on above:Performed By: #### CDP, MELVIN, BMPX, IPF #### [facility] [address] [place] [address] Cold Type Artist: Francisco J Fonseca MDCreatinine [Mass/Vol]0.57 mg/dLLow0.70-1.20[facility] HospitalComment on above:Performed By: #### CDP, MELVIN, BMPX, IPF #### [facility] [address] [place] [address] Cold Type Artist: Francisco J Fonseca MDGFR, Amer>60Normal>60[facility] HospitalComment on above:Performed By: #### CDP, MELVIN, BMPX, IPF #### [facility] [address] [place] [address] Cold Type Artist: ARTURO Brandon,non Amer>60Normal>60[facility] HospitalComment on above:Performed By: #### CDP, MELVIN, BMPX, IPF #### [facility] [address] [place] [address] Cold Type Artist: Francisco J Fonseca MDGlucose [Mass/Vol]129 mg/rIEujf59-46Spwza Orthopaedic HospitalComment on above:Performed By: #### CDP, MELVIN, BMPX, IPF #### [facility] [address] [place] [address] Cold Type Artist: Francisco J Fonseca MDPotassium [Moles/Vol]3.5 mmol/LLow3.7-5.3Mwvumedicine barnesville hospitaly Orthopaedic HospitalComment on above:Performed By: #### CDP, MELVIN, BMPX, IPF #### [facility] [address] [place] [address] Cold Type Artist: MEIR Brandonodium [Moles/Vol]135 mmol/QVsbzrz526-912AfjwvAvita Health System Bucyrus HospitalComment on above:Performed By: #### CDP, MELVIN, BMPX, IPF #### [facility] [address] [place] [address] Cold Type Artist: Francisco J Fonseca MDUrea nitrogen [Mass/Vol]15 mg/dLNormal8-23[facility] HospitalComment on above:Performed By: #### CDP, MELVIN, BMPX, IPF #### [facility] [address] [place] [address] Cold Type Artist: Francisco J Fonseca MD(cont.)[facility] Comment on above:Result Comment: Average GFR for 70 or more years old: 75 mL/min/1.73sq m Chronic Kidney Disease: <60 mL/min/1.73sq m Kidney failure: <15 mL/min/1.73sq m eGFR calculated using average adult body mass. Additional eGFR calculator available at: http://www.Relify.[employer]/multiple_crcl_2012.htmPerformed By: #### CDP, MELVIN, BMPX, IPF #### [place] [address] Cold Type Artist: Francisco J Fonseca MDAnion gap [Moles/Vol]15 mmol/LNormal9-17[facility] HospitalComment on above:Performed By: #### CDP, MELVIN, BMPX, IPF #### [facility] [address] [place] [address] Cold Type Artist: Francisco J Fonseca, MDCalcium [Mass/Vol]8.2 mg/dLLow8.6-10.4[facility] HospitalComment on above:Performed By: #### CDP, MELVIN, BMPX, IPF #### [facility] [address] [place] [address] Cold Type Artist: Francisco J Fonseca MDChloride [Moles/Vol]98 mmol/GOcouxc97-833JlutqAvita Health System Bucyrus HospitalComment on above:Performed By: #### CDP, MELVIN, BMPX, IPF #### [facility] [address] [place] [address] Cold Type Artist: Francisco J Fonseca MDCO2 [Moles/Vol]23 mmol/FXdzpop34-82YskjfAvita Health System Bucyrus HospitalComment on above:Performed By: #### CDP, MELVIN, BMPX, IPF #### [facility] [address] [place] [address] Cold Type Artist: MARLENY Brandonreatinine [Mass/Vol]0.66 mg/dLLow0.70-1.20[facility] HospitalComment on above:Performed By: #### CDP, MELVIN, BMPX, IPF #### [facility] [address] [place] [address] Cold Type Artist: Francisco J Fonseca MDGFR, Amer>60Normal>60[facility] HospitalComment on above:Performed By: #### CDP, MELVIN, BMPX, IPF #### [facility] [address] [place] [address] Cold Type Artist: Francisco J Fonseca MDGFR,non Amer>60Normal>60[facility] HospitalComment on above:Performed By: #### CDP, MELVIN, BMPX, IPF #### [facility] [address] [place] [address] Cold Type Artist: Francisco J Fonseca MDGlucose [Mass/Vol]90 mg/bAVxzjyt26-96LzgzsWhittier Hospital Medical CenterComment on above:Performed By: #### CDP, MELVIN, BMPX, IPF #### [facility] [address] [place] [address] Cold Type Artist: Francisco J Fonseca MDPotassium [Moles/Vol]3.7 mmol/LNormal3.7-5.3 [facility] HospitalComment on above:Performed By: #### CDP, MELVIN, BMPX, IPF #### [facility] [address] [place] [address] Cold Type Artist: MEIR Brandonodium [Moles/Vol]136 mmol/IMbbwmv847-735GhdqrAvita Health System Bucyrus HospitalComment on above:Performed By: #### CDP, MELVIN, BMPX, IPF #### [address] [address] Cold Type Artist: Francisco J Fonseca MDUrea nitrogen [Mass/Vol]20 mg/dLNormal8-23[facility] HospitalComment on above:Performed By: #### CDP, MELVIN, BMPX, IPF #### [address] [address] Cold Type Artist: MARLENY Brandon with Diffon 31-19-0716Zxm. Basophil0.04 k/uL Normal0.00-0.20[facility] HospitalComment on above:Performed By: #### CDP, MELVIN, BMPX, IPF #### [facility] [address] [place] [address] Cold Type Artist: MDAbs. RomaImm.Granulocyte0.08 k/uLNormal0.00-0.30[facility] HospitalComment on above:Performed By: #### CDP, MELVIN, BMPX, IPF #### [facility] [address] [place] [address] Cold Type Artist: Vidhya Brandon.Neutrophil (Seg)14.26 k/uLHigh1.50-8.10[facility] HospitalComment on above:Performed By: #### CDP, MELVIN, BMPX, IPF #### [facility] [address] [place] [address] Cold Type Artist: Francisco J Fonseca MDBasophils/100 WBC (Bld)0 %Normal0-2MWhittier Hospital Medical CenterComment on above:Performed By: #### CDP, MELVIN, BMPX, IPF #### [facility] [address] [place] [address] Cold Type Artist: Francisco J Fonseca MDEosinophils (Bld) [#/Vol]0.11 10*3/uLNormal 0.00-0.44[facility] HospitalComment on above:Performed By: #### CDP, MELVIN, BMPX, IPF #### [facility] [address] [place] [address] Cold Type Artist: MAXIM Brandonosinophils/100 WBC (Bld)1 %Normal1-4[facility] HospitalComment on above:Performed By: #### CDP, MELVIN, BMPX, IPF #### [facility] [address] [place] [address] Cold Type Artist: Francisco J Fonseca MDImmature granulocytes/100 WBC (Bld)1 %Hhvk9PmctlAvita Health System Bucyrus HospitalComment on above:Performed By: #### CDP, MELVIN, BMPX, IPF #### [facility] [address] [place] [address] Cold Type Artist: Jeremie Brandonmphocytes (Bld) [#/Vol]0.96 10*3/uLLow 1.10-3.70[facility] HospitalComment on above:Performed By: #### CDP, MELVIN, BMPX, IPF #### [facility] [address] [place] [address] Cold Type Artist: Jeremie Brandonmphocytes/100 WBC (Bld)6 %Lsm92-56WfcivAvita Health System Bucyrus HospitalComment on above:Performed By: #### CDP, MELVIN, BMPX, IPF #### [facility] [address] [place] [address] Cold Type Artist: MARK Brandononocytes (Bld) [#/Vol]0.97 10*3/uLNormal 0.10-1.20[facility] HospitalComment on above:Performed By: #### CDP, MELVIN, BMPX, IPF #### [facility] [address] [place] [address] Cold Type Artist: MARK Brandononocytes/100 WBC (Bld)6 %Normal3-12[facility] HospitalComment on above:Performed By: #### CDP, MELVIN, BMPX, IPF #### [facility] [address] [place] [address] Cold Type Artist: Francisco J Fonseca MDNeutrophil (Seg)87 %Fydd46-33FkfkfAvita Health System Bucyrus HospitalComment on above:Performed By: #### CDP, MELVIN, BMPX, IPF #### [facility] [address] [place] [address] Cold Type Artist: Francisco J Fonseca MDErythrocyte distribution width (RBC) [Ratio]18.6 %High11.8-14.4[facility] HospitalComment on above:Performed By: #### CDP, MELVIN, BMPX, IPF #### [facility] [address] [place] [address] Cold Type Artist: Francisco J Fonseca MDHematocrit (Bld) [Volume fraction]38.9 %Low 40.7-50.3Mwvumedicine barnesville hospitaly Orthopaedic HospitalComment on above:Performed By: #### CDP, MELVIN, BMPX, IPF #### [facility] [address] [place] [address] Cold Type Artist: Francisco J Fonseca MDHemoglobin (Bld) [Mass/Vol]13.5 g/dLNormal 13.0-17.0[facility] HospitalComment on above:Performed By: #### CDP, MELVIN, BMPX, IPF #### [facility] [address] [place] [address] Cold Type Artist: MARK BrandonCH (RBC) [Entitic mass]26.8 jfVcfqvm51.2-33.5 [facility] HospitalComment on above:Performed By: #### CDP, MELVIN, BMPX, IPF #### [address] [address] Cold Type Artist: MARK BrandonCHC (RBC) [Mass/Vol]34.7 g/kSXinqoa82.4-34.8 [facility] HospitalComment on above:Performed By: #### CDP, MELVIN, BMPX, IPF #### [facility] [address] [place] [address] Cold Type Artist: MARK BrandonCV (RBC) [Entitic vol]77.3 fLLow82.6-102.9[facility] HospitalComment on above:Performed By: #### CDP, MELVIN, BMPX, IPF #### [address] [address] Cold Type Artist: Francisco J Fonseca MDNRBC Automated0.0 per 100 WBCNormal0.0[facility] HospitalComment on above:Performed By: #### CDP, MELVIN, BMPX, IPF #### [facility] [address] [place] [address] Cold Type Artist: DENISE Brandonlatelet CountSee Reflexed IPF ResultNormal 138-453[facility] Bucy[facility] HospitalComment on above:Performed By: #### CDP, MELVIN, BMPX, IPF #### [facility] [address] [place] [address] Cold Type Artist: LEIGH BrandonBC (Bld) [#/Vol]5.03 10*6/uLNormal4.21-5.77 [facility]cyrus HospitalComment on above:Performed By: #### CDP, MELVIN, BMPX, IPF #### [facility] [address] [place] [address] Cold Type Artist: Francisco J Madoff, MDRBC morphology finding Nom (Bld)ANISOCYTOSIS PRESENTNormalMerKindred HospitalComment on above:Result Comment: MICROCYTOSIS PRESENTPerformed By: #### CDP, MELVIN, BMPX, IPF #### [employer] [address] [place], [place] [id number] Cold Type Artist: Francisco J Fonseca MDWBC (Bld) [#/Vol]16.4 10*3/uLHigh3.5-11.3Mer[facility]opaedic HospitalComment on above:Performed By: #### CDP, MELVIN, BMPX, IPF #### [employer] [address] [place], [place] [phone] Cold Type Artist: Francisco J Fonseca MDFL UGIon [id number] UGIEXAMINATION: SINGLE CONTRAST UPPER GI SERIES 01/05/2022 HISTORY: ORDERING SYSTEM PROVIDED HISTORY: repair perf ulcer TECHNOLOGIST PROVIDED HISTORY: repair perf ulcer COMPARISON: None. TECHNIQUE: Multiple single contrast images of the esophagus, gastroesophageal junction and stomach were obtained following the oral administration of water soluble contrast. FLUOROSCOPY DOSE AND TYPE OR TIME AND EXPOSURES: DAP 16.358Rtmn8 FINDINGS: Contrast was administered through the indwelling [...] Signed by: Howard Aldridge MD 01/05/22 Final resultNormalAvita Health System Bucyrus HospitalLaboratory - Chemistry and Chemistry - challengeon [id number] [Mass/Vol]1.4 mg/dLLow1.6 - 2.6 mg/dLBON PROMEDICA FOSTOR[facility] COMMUN[facility] HOSPITALGFR/1.73 sq M.predicted MDRD (S/P/Bld) [Vol rate/Area][facility] HOSPITALComment on above:Average GFR for 70 or more years old: 75 mL/min/1.73sq m Chronic Kidney Disease: <60 mL/min/1.73sq m Kidney failure: <15 mL/min/1.73sq m eGFR calculated using average adult body mass. Additional eGFR calculator available at: http://www.KeriCure/multiple_crcl_2012.htm Potassium [Moles/Vol]3.4 mmol/LLow3.7 - 5.3 mmol/LBON SECOURS FOSTORIA CITY HOSPITALY HEALTHUrea nitrogen (BldV) [Mass/Vol]14 mg/dL8 - 23 mg/dLBON SECOURS MERCY HEALTHPhosphate [Mass/Vol]2.4 mg/dLLow2.5 - 4.5 mg/dLBON [facility] MERCY HEALTHMagnesium [Mass/Vol]1.5 mg/dLLow1.6 - 2.6 mg/dLBON SECOURS MERCY HEALTHAnion gap [Moles/Vol]11 mmol/L9 - 17 mmol/LBON SECOURS MERCY HEALTHCalcium [Mass/Vol]9.1 mg/dL8.6 - 10.4 mg/dLBON SECOURS MERCY HEALTHChloride [Moles/Vol]99 mmol/L98 - 107 mmol/LBON [facility]OU[facility] FOST[facility] HOSPITALY HEALTHCO2 [Moles/Vol]25 mmol/L20 - 31 mmol/LBON SECOURS MERCY HEALTHCreatinine [Mass/Vol]0.57 mg/dLLow0.70 - 1.20 mg/dLBON [facility]OSPITALY HEALTHGFR/1.73 sq M.predicted MDRD (S/P/Bld) [Vol rate/Area][facility] HOSPITALComment on above:Average GFR for 70 or more years old: 75 mL/min/1.73sq m Chronic Kidney Disease: <60 mL/min/1.73sq m Kidney failure: <15 mL/min/1.73sq m eGFR calculated using average adult body mass. Additional eGFR calculator available at: http://www.KeriCure/multiple_crcl_2012.htm Glucose [Mass/Vol]129 mg/cCIluv41 - 99 mg/dLBON SECOURS MERCY HEALTHPhosphate [Mass/Vol]2.4 mg/dLLow2.5 - 4.5 mg/dLB[facility] MERCY HEALTHPotassium [Moles/Vol]3.5 mmol/LLow3.7 - 5.3 mmol/LBON SECOURS MERCY HEALTHSodium [Moles/Vol]135 mmol/L135 - 144 mmol/LBON [facility]OM[facility] FOSTORIA COMMUNITY HOSPITALUrea nitrogen (BldV) [Mass/Vol]15 mg/dL8 - 23 mg/dLBON [facility]OST[facility] COMMUNITY HOSPITALLaboratory - Hematology and Cell countson [id number] (Bld) [#/Vol]0.04 10*3/uLBON [facility]OSTOR[facility] COMM[facility]ITY HOSPITALBasophils/100 WBC (Bld)0 %0 - 2 %[facility] Eosinophils/100 WBC (Bld)1 %1 - 4 %[facility] HOSPITALHematocrit (Bld) [Volume fraction]38.9 %Low40.7 - 50.3 %[facility] HOSPITALHemoglobin (Bld) [Mass/Vol]13.5 g/dL13.0 - 17.0 g/dLBON [facility] HOSPITALImmature granulocytes/100 WBC (Bld)1 %Avmt7XQI [facility] COMMUN[facility] HOSPITALLymphocytes/100 WBC (Bld)6 %Low24 - 43 %[facility]ITALH (RBC) [Entitic mass]26.8 pg25.2 - 33.5 pgBON SAMARITAN NORTH HEALTH CENTERHC (RBC) [Mass/Vol]34.7 g/dL28.4 - 34.8 g/dL [facility]PITALV (RBC) [Entitic vol]77.3 fLLow82.6 - 102.9 fLWELLMONT LONESOME PINE [facility]. VIEW HOSPITALMonocytes/100 WBC (Bld)6 %3 - 12 %[facility] Platelet distribution width (Bld) [Ratio]18.6 %High11.8 - 14.4 %[facility] HOSPITALPlatelets (Bld) [#/Vol]See Reflexed IPF ResultBON PROMED[facility] FOSTORIA COMMUNITY HOSPITALRBC (Bld) [#/Vol]5.03 10*6/uL4.21 - 5.77 m/uLWELLMONT LONESOME PINE MT. VIEW HOSPITALRBC (Bld) [#/Vol]ANISOCYTOSIS PRESENTWELLMONT LONESOME PINE MT. VIEW HOSPITALComment on above: MICROCYTOSIS PRESENTSegmented neutrophils/100 WBC (Bld)87 %High36 - 65 %[facility] HOSPITALWBC (Bld) [#/Vol]16.4 10*3/uLRockefeller Neuroscience Institute Innovation CenterB[facility] Magnesiumon [id number] [Mass/Vol]1.4 mg/dLLow1.6-2.6Mer[facility]opaedic HospitalComment on above:Performed By: #### CDP, MELVIN, BMPX, IPF #### [facility] [address] [place] [address] Cold Type Artist: Francisco J Fonseca MDMagnesium [Mass/Vol]1.5 mg/dLLow1.6-2.6Mer[facility]opaedic HospitalComment on above:Performed By: #### CDP, MELVIN, BMPX, IPF #### [facility] [address] [place] [address] Cold Type Artist: Francisco J Fonseca MDAtrium Health Pineville Informationon . No evidence for contrast leakage from the stomach or duodenum following repair of perforated ulcer. 2. Gastroesophageal reflux. [facility] CONSOLIDATEDEXAMINATION: SINGLE CONTRAST UPPER GI SERIES 01/05/2022 HISTORY: ORDERING SYSTEM PROVIDED HISTORY: repair perf ulcer TECHNOLOGIST PROVIDED HISTORY: repair perf ulcer COMPARISON: None. TECHNIQUE: Multiple single contrast images of the esophagus, gastroesophageal junction and stomach were obtained following the oral administration of water soluble contrast. FLUOROSCOPY DOSE AND TYPE OR TIME AND EXPOSURES: DAP 16.389Crmr8 FINDINGS: Contrast was administered through the indwelling NG tube. No extravasation of contrast from the stomach. There is normal filling of stomach and proximal small bowel loops. There was some reflux into the biliary tree. Gastroesophageal reflux is noted. [facility] Howard Castorena MD - 01/05/2022 EXAMINATION: SINGLE CONTRAST UPPER GI SERIES 01/05/2022 HISTORY: ORDERING SYSTEM PROVIDED HISTORY: repair perf ulcer TECHNOLOGIST PROVIDED HISTORY: repair perf ulcer COMPARISON: None. TECHNIQUE: Multiple single contrast images of the esophagus, gastroesophageal junction and stomach were obtained following the oral administration of water soluble contrast. FLUOROSCOPY DOSE AND TYPE OR TIME AND EXPOSURES: DAP 16.822Osxw5 FINDINGS: Contrast was administered through the indwelling NG tube. No extravasation of contrast from the stomach. There is normal filling of stomach and proximal small bowel loops. There was some reflux into the biliary tree. Gastroesophageal reflux is noted. IMPRESSION: 1. No evidence for contrast leakage from the stomach or duodenum following repair of perforated ulcer. 2. Gastroesophageal reflux. LAMONT Cignis Work Phone: radiology Study observation (narrative)LAMONT Cignis Work Phone: Interpretation and review of laboratory results AbnormalBON SECOURS MERCY HEALTHBON SEC[facility] MERCY HEALTHGFR >60 >60 mL/minBON [facility] MERCY HEALTHGFR Non->60>60 mL/minB[facility] MERCY HEALTHInterpretation and review of laboratory resultsAbnormalBON [facility] MERCY HEALTHB[facility] MERCY HEALTHInterpretation and review of laboratory resultsAbnormalBON [facility]ITALY HEALTHB[facility] PaperwovenY HEALTH Interpretation and review of laboratory resultsAbnormalBON SECBig Sky Partners LLC HEALTH Platelet, Yvdarodllyty063LTJ SECOURS PaperwovenY HEALTHPlatelet, Immature Nkvvckvn84.5 %High1.1 - 10.3 %BON SECEnable HoldingsY HEALTHBON SECOURS MERCY HEALTHAbsolute Eos # 0.11[facility] MERCY HEALTHAbsolute Immature Granulocyte0.08[facility]CY HEALTHAbsolute Lymph #0.96LowBON SECOURS MERCY HEALTHAbsolute Tillman #0.97[facility] HEALTHInterpretation and review of laboratory resultsAbnormalBON SECOURS PaperwovenY HEALTHNRBC Automated0.00.0 per 100 WBCBON SECOURS PaperwovenY HEALTHSegs Mqiyxwsw47.26HighBON SECOURS [facility] HOSPITALY HEALTHHONORHEALTH [facility] SECOURS MERCY HEALTHInterpretation and review of laboratory resultsAbnormalBON SECOURS FOST[facility] HOSPITALY HEALTHB[facility]OSPITALY HEALTHGFR >60>60 mL/minBON SEC[facility]RS MERCY HEALTHGFR Non- >60>60 mL/minBON SEC[facility]RS MERCY HEALTHInterpretation and review of laboratory resultsAbnormalBON SECOURS [facility]OSPITALY HEALTHBON SECOU[facility] PaperwovenY HEALTHNo Panel InformationOrdered By: Howard Aldridge on [id number] Cignis Work Phone: PLT, Immature Fract.on [id number], Fluoresc. 250 k/fRQqibkg771-494Hxgz[address] [place], [place] [address]Comment on above:Performed By: #### CDP, MELVIN, BMPX, IPF #### [facility] [address] [place] [address] Cold Type Artist: SUSANNAH Brandon Immature Fract.10.5 %High1.1-10.3Mer[facility] Orthopaedic HospitalComment on above:Performed By: #### CDP, MELVIN, BMPX, IPF #### [facility] [address] [place] [address] Cold Type Artist: Brandon Brandonhokhari Inorg.on 70-50-8661Celnnzuazn, Inorg.2.4 mg/dLLow2.5-4.5[facility] HospitalComment on above: Performed By: #### CDP, MELVIN, BMPX, IPF #### [facility] [address] [place] [address] Cold Type Artist: Mckayla Brandon Inorg.1.9 mg/dLLow2.5-4.5[facility] HospitalComment on above:Performed By: #### CDP, MELVIN, BMPX, IPF #### [facility] [address] [place] [address] Cold Type Artist: Rubina Brandon Metab w/rfx MGon 06-16-4478Ktqigfzte [Moles/Vol]3.4 mmol/LLow3.7-5.3Mwvumedicine barnesville hospitaly Orthopaedic HospitalComment on above: Performed By: #### CDP, MELVIN, BMPX, IPF #### [facility] [address] [place] [address] Cold Type Artist: Francisco J Fonseca MD(cont.)[facility] Comment on above:Result Comment: Average GFR for 70 or more years old: 75 mL/min/1.73sq m Chronic Kidney Disease: <60 mL/min/1.73sq m Kidney failure: <15 mL/min/1.73sq m eGFR calculated using average adult body mass. Additional eGFR calculator available at: http://www.Relify.com/multiple_crcl_2012.htmPerformed By: #### CDP, MELVIN, BMPX, IPF #### [facility] [address] [place] [address] Cold Type Artist: Francisco J Fonseca MDAnion gap [Moles/Vol]12 mmol/LNormal9-17[facility] HospitalComment on above:Performed By: #### CDP, MELVIN, BMPX, IPF #### [facility] [address] [place] [address] Cold Type Artist: Francisco J Fonseca MDCalcium [Mass/Vol]8.1 mg/dLLow8.6-10.4[facility] HospitalComment on above:Performed By: #### CDP, MELVIN, BMPX, IPF #### [facility] [address] [place] [address] Cold Type Artist: Francisco J Fonseca MDChloride [Moles/Vol]99 mmol/REpbazb10-437TknraAvita Health System Bucyrus HospitalComment on above:Performed By: #### CDP, MELVIN, BMPX, IPF #### [facility] [address] [place] [address] Cold Type Artist: Francisco J Fonseca MDCO2 [Moles/Vol]23 mmol/SBcxfum37-94JdlsuAvita Health System Bucyrus HospitalComment on above:Performed By: #### CDP, MELVIN, BMPX, IPF #### [facility] [address] [place] [address] Cold Type Artist: Francisco J Fonseca MDCreatinine [Mass/Vol]0.61 mg/dLLow0.70-1.20[facility] HospitalComment on above:Performed By: #### CDP, MELVIN, BMPX, IPF #### [facility] [address] [place] [address] Cold Type Artist: Francisco J Madoff, MDGFR, Amer>60Normal>60[facility] HospitalComment on above:Performed By: #### CDP, MELVIN, BMPX, IPF #### [facility] [address] [place] [address] Cold Type Artist: Francisco J Fonseca MDGFR,non Amer>60Normal>60[facility] HospitalComment on above:Performed By: #### CDP, MELVIN, BMPX, IPF #### [facility] [address] [place] [address] Cold Type Artist: Francisco J Fonseca MDGlucose [Mass/Vol]125 mg/oXRmuq25-39AhzxyWhittier Hospital Medical CenterComment on above:Performed By: #### CDP, MELVIN, BMPX, IPF #### [address] [address] Cold Type Artist: MEIR Brandonodium [Moles/Vol]134 mmol/ARrv057-984FwuipAvita Health System Bucyrus HospitalComment on above:Performed By: #### CDP, MELVIN, BMPX, IPF #### [facility] [address] [place] [address] Cold Type Artist: Francisco J Fonseca MDUrea nitrogen [Mass/Vol]19 mg/dLNormal8-23[facility] HospitalComment on above:Performed By: #### CDP, MELVIN, BMPX, IPF #### [facility] PROTEIN LOUNGE [address] [place] [address] Cold Type Artist: Francisco J Fonseca MD(cont.)[facility] Comment on above:Result Comment: Average GFR for 70 or more years old: 75 mL/min/1.73sq m Chronic Kidney Disease: <60 mL/min/1.73sq m Kidney failure: <15 mL/min/1.73sq m eGFR calculated using average adult body mass. Additional eGFR calculator available at: http://www.Relify.[employer]/multiple_crcl_2012.htmPerformed By: #### CDP, MELVIN, BMPX, IPF #### [facility] [address] [place] [address] Cold Type Artist: Francisco J Fonseca MDAnion gap [Moles/Vol]13 mmol/LNormal9-17[facility] HospitalComment on above:Performed By: #### CDP, MELVIN, BMPX, IPF #### [facility] [address] [place] [address] Cold Type Artist: Francisco J Fonseca MDCalcium [Mass/Vol]8.4 mg/dLLow8.6-10.4[facility] HospitalComment on above:Performed By: #### CDP, MELVIN, BMPX, IPF #### [address] [address] Cold Type Artist: MARLENY Brandonhloride [Moles/Vol]101 mmol/UDdofkl56-157RmotmAvita Health System Bucyrus HospitalComment on above:Performed By: #### CDP, MELVIN, BMPX, IPF #### [address] [address] Cold Type Artist: Francisco J Fonseca MDCO2 [Moles/Vol]23 mmol/LIowtad85-72JdmzrAvita Health System Bucyrus HospitalComment on above:Performed By: #### CDP, MELVIN, BMPX, IPF #### [place] [address] Cold Type Artist: Francisco J Fonseca MDCreatinine [Mass/Vol]0.73 mg/dLNormal0.70-1.20 [facility] HospitalComment on above:Performed By: #### CDP, MELVIN, BMPX, IPF #### [address] [address] Cold Type Artist: ARTURO Brandon,Krystal Amer>60Normal>60MerKindred HospitalComment on above:Performed By: #### CDP, MELVIN, BMPX, IPF #### [facility] [address] [place] [address] Cold Type Artist: Francisco J Fonseca MDGFR,non Amer>60Normal>60[facility] HospitalComment on above:Performed By: #### CDP, MELVIN, BMPX, IPF #### [facility] [address] [place] [address] Cold Type Artist: Francisco J Fonseca MDGlucose [Mass/Vol]124 mg/rBFrac59-86LapvgWhittier Hospital Medical CenterComment on above:Performed By: #### CDP, MELVIN, BMPX, IPF #### [facility] [address] [place] [address] Cold Type Artist: Francisco J Fonseca, MDPotassium [Moles/Vol]3.9 mmol/LNormal3.7-5.3 [facility] HospitalComment on above:Performed By: #### CDP, MELVIN, BMPX, IPF #### [facility] [address] [place] [address] Cold Type Artist: MEIR Brandonodium [Moles/Vol]137 mmol/SRgyqig205-147KijprAvita Health System Bucyrus HospitalComment on above:Performed By: #### CDP, MELVIN, BMPX, IPF #### [facility] [address] [place] [address] Cold Type Artist: Francisco J Fonseca MDUrea nitrogen [Mass/Vol]24 mg/dLHigh8-23[facility] HospitalComment on above:Performed By: #### CDP, MELVIN, BMPX, IPF #### [facility] PROTEIN LOUNGE [address] [place] [address] Cold Type Artist: Francisco J Fonseca MD(cont.)[facility] Comment on above:Result Comment: Average GFR for 70 or more years old: 75 mL/min/1.73sq m Chronic Kidney Disease: <60 mL/min/1.73sq m Kidney failure: <15 mL/min/1.73sq m eGFR calculated using average adult body mass. Additional eGFR calculator available at: http://www.Relify.[employer]/multiple_crcl_2012.htmPerformed By: #### BMPX, MELVIN #### [facility] [address] [place] [address] Cold Type Artist: Francisco J Fonseca MDAnion gap [Moles/Vol]12 mmol/LNormal9-17[facility] HospitalComment on above:Performed By: #### BMPX, MELVIN #### [address] [address] Cold Type Artist: Francisco J Fonseca MDCalcium [Mass/Vol]8.5 mg/dLLow8.6-10.4[facility] HospitalComment on above:Performed By: #### BMPX, MELVIN #### [address] [address] Cold Type Artist: Francisco J Fonseca MDChloride [Moles/Vol]101 mmol/SAbwmzb06-944TouvoAvita Health System Bucyrus HospitalComment on above:Performed By: #### BMPX, MELVIN #### [address] [address] Cold Type Artist: Francisco J Fonseca MDCO2 [Moles/Vol]23 mmol/VTfetzl46-44AzdsuAvita Health System Bucyrus HospitalComment on above:Performed By: #### BMPX, MELVIN #### [address] [address] Cold Type Artist: Francisco J Fonseca MDCreatinine [Mass/Vol]0.82 mg/dLNormal0.70-1.20 [facility] HospitalComment on above:Performed By: #### BMPX, MELVIN #### [facility] [address] [place] [address] Cold Type Artist: Francisco J Fonseca MDGFR, Amer>60Normal>60[facility] HospitalComment on above:Performed By: #### BMPX, MELVIN #### [facility] [address] [place] [address] Cold Type Artist: Francisco J Fonseca MDGFR,non Amer>60Normal>60[facility] HospitalComment on above:Performed By: #### BMPX, MELVIN #### [facility] [address] [place] [address] Cold Type Artist: Francisco J Fonseca MDGlucose [Mass/Vol]100 mg/oIQjyy02-67GrojrWhittier Hospital Medical CenterComment on above:Performed By: #### BMPX, MELVIN #### [address] [address] Cold Type Artist: DENISE Brandonotassium [Moles/Vol]3.9 mmol/LNormal3.7-5.3 [facility] HospitalComment on above:Performed By: #### BMPX, MELVIN #### [address] [address] Cold Type Artist: MEIR Brandonodium [Moles/Vol]136 mmol/DCvgbkw724-234RhptdAvita Health System Bucyrus HospitalComment on above:Performed By: #### BMPX, MELVIN #### [address] [address] Cold Type Artist: Francisco J Fonseca MDUrea nitrogen [Mass/Vol]26 mg/dLHigh8-23[facility] HospitalComment on above:Performed By: #### BMPX, MELVIN #### [address] [address] Cold Type Artist: Francisco J Fonseca MD(cont.)[facility] Comment on above:Result Comment: Average GFR for 70 or more years old: 75 mL/min/1.73sq m Chronic Kidney Disease: <60 mL/min/1.73sq m Kidney failure: <15 mL/min/1.73sq m eGFR calculated using average adult body mass. Additional eGFR calculator available at: http://www.Relify.[employer]/multiple_crcl_2012.htmPerformed By: #### CDP #### [address] [address] Cold Type Artist: Francisco J Fonseca MDAnion gap [Moles/Vol]11 mmol/LNormal9-17[facility] HospitalComment on above:Performed By: #### CDP #### [address] [address] Cold Type Artist: MARLEYN Brandonalcium [Mass/Vol]8.3 mg/dLLow8.6-10.4[facility] HospitalComment on above:Performed By: #### CDP #### [address] [address] Cold Type Artist: MARLENY Brandonhloride [Moles/Vol]104 mmol/SDslloh29-813DdqstAvita Health System Bucyrus HospitalComment on above:Performed By: #### CDP #### [address] [address] Cold Type Artist: Francisco J Fonseca MDCO2 [Moles/Vol]21 mmol/AOsmmgo91-13TnylvAvita Health System Bucyrus HospitalComment on above:Performed By: #### CDP #### [address] [address] Cold Type Artist: Francisco J Fonseca MDCreatinine [Mass/Vol]0.83 mg/dLNormal0.70-1.20 [facility] HospitalComment on above:Performed By: #### CDP #### [address] [address] Cold Type Artist: Francisco J Fonseca MDGFR, Amer>60Normal>60[facility] HospitalComment on above:Performed By: #### CDP #### [facility] [place] [address] Cold Type Artist: Francisco J Fonseca MDGFR,non Amer>60Normal>60[facility] HospitalComment on above:Performed By: #### CDP #### [facility] [address] [place] [address] Cold Type Artist: Francisco J Fonseca MDGlucose [Mass/Vol]71 mg/zKLxwwqm65-02FholuWhittier Hospital Medical CenterComment on above:Performed By: #### CDP #### [facility] [address] [place] [address] Cold Type Artist: DENISE Brandonotassium [Moles/Vol]4.5 mmol/LNormal3.7-5.3 [facility] HospitalComment on above:Result Comment: SPECIMEN SLIGHTLY HEMOLYZED, RESULTS MAY BE ADVERSELY AFFECTED.Performed By: #### CDP #### [address] [address] Cold Type Artist: MEIR Brandonodium [Moles/Vol]136 mmol/MDfmzwv266-404UrospAvita Health System Bucyrus HospitalComment on above:Performed By: #### CDP #### [facility] [address] [place] [address] Cold Type Artist: Francisco J Fonseca MDUrea nitrogen [Mass/Vol]29 mg/dLHigh8-23[facility] HospitalComment on above:Performed By: #### CDP #### [facility] [address] [place] [address] Cold Type Artist: Francisco J Fonseca [facility] with Diffon [id number]. Basophil0.04 k/uL Normal0.00-0.20[facility] HospitalComment on above:Performed By: #### CDP #### [facility] [address] [place] [address] Cold Type Artist: Vidhya Brandon. Eosinophil<0.00Nkenfc5.00-0.44[facility] HospitalComment on above:Performed By: #### CDP #### [address] [address] Cold Type Artist: MDAbs. RomaImm.Granulocyte0.20 k/uLNormal0.00-0.30[facility] HospitalComment on above:Performed By: #### CDP #### [address] [address] Cold Type Artist: MDAbs. RomaNeutrophil (Seg)18.94 k/uLHigh1.50-8.10[facility] HospitalComment on above:Performed By: #### CDP #### [place] [address] Cold Type Artist: Francisco J Fonseca MDBasophils/100 WBC (Bld)0 %Normal0-2MWhittier Hospital Medical CenterComment on above:Performed By: #### CDP #### [place] [address] Cold Type Artist: Francisco J Fonseca MDEosinophils/100 WBC (Bld)0 %Low1-4[facility] HospitalComment on above:Performed By: #### CDP #### [place] [address] Cold Type Artist: Francisco J Fonseca MDErythrocyte distribution width (RBC) [Ratio]19.0 %High11.8-14.4[facility] HospitalComment on above:Performed By: #### CDP #### [address] [address] Cold Type Artist: Francisco J Fonseca MDHematocrit (Bld) [Volume fraction]35.1 %Low 40.7-50.3Mer[facility] Orthopaedic HospitalComment on above:Performed By: #### CDP #### [address] [address] Cold Type Artist: Francisco J Fonseca MDHemoglobin (Bld) [Mass/Vol]12.0 g/dLLow13.0-17.0 [facility] HospitalComment on above:Performed By: #### CDP #### [address] [address] Cold Type Artist: Francisco J Fonseca MDImmature granulocytes/100 WBC (Bld)1 %Faoc3VovjvAvita Health System Bucyrus HospitalComment on above:Performed By: #### CDP #### [address] [address] Cold Type Artist: Francisco J Fonseca MDLymphocytes (Bld) [#/Vol]0.89 10*3/uLLow 1.10-3.70[facility] HospitalComment on above:Performed By: #### CDP #### [address] [address] Cold Type Artist: Jeremie Brandonmphocytes/100 WBC (Bld)4 %Gdm54-43GwblqAvita Health System Bucyrus HospitalComment on above:Performed By: #### CDP #### [address] [address] Cold Type Artist: MARK BrandonCH (RBC) [Entitic mass]27.6 yoBikchv52.2-33.5 [facility] HospitalComment on above:Performed By: #### CDP #### [address] [address] Cold Type Artist: MARK BrandonCHC (RBC) [Mass/Vol]34.2 g/xPZracog19.4-34.8 [facility] HospitalComment on above:Performed By: #### CDP #### [address] [place] [address] Cold Type Artist: MARK BrandonCV (RBC) [Entitic vol]80.7 fLLow82.6-102.9[facility] HospitalComment on above:Performed By: #### CDP #### [address] [address] Cold Type Artist: MARK Brandononocytes (Bld) [#/Vol]1.33 10*3/uLHigh0.10-1.20 [facility] HospitalComment on above:Performed By: #### CDP #### [place] [address] Cold Type Artist: MARK Brandononocytes/100 WBC (Bld)6 %Normal3-12[facility] HospitalComment on above:Performed By: #### CDP #### [place] [address] Cold Type Artist: Shelli Bradnonophil (Seg)89 %Gekh17-39DluefAvita Health System Bucyrus HospitalComment on above:Performed By: #### CDP #### [address] [address] Cold Type Artist: Francisco J Fonseca MDNRBC Automated0.0 per 100 WBCNormal0.0[facility] HospitalComment on above:Performed By: #### CDP #### [place] [address] Cold Type Artist: DENISE Brandonlatelet mean volume (Bld) [Entitic vol]12.3 fL Normal8.1-13.5[facility] HospitalComment on above:Performed By: #### CDP #### [address] [address] Cold Type Artist: DENISE Brandonlatelets (Bld) [#/Vol]245 10*3/jZBgtxoq816-398 [facility] HospitalComment on above:Performed By: #### CDP #### [address] [address] Cold Type Artist: YOLA Brandon (Bld) [#/Vol]4.35 10*6/uLNormal4.21-5.77 [facility] HospitalComment on above:Performed By: #### CDP #### [address] [address] Cold Type Artist: YOLA Brandon morphology finding Nom (Bld)ANISOCYTOSIS PRESENTNoLima City HospitalComment on above:Result Comment: MICROCYTOSIS PRESENTPerformed By: #### CDP #### [address] [address] Cold Type Artist: PABLO Brandon (Bld) [#/Vol]21.4 10*3/uLHigh3.5-11.3MWhittier Hospital Medical CenterComment on above:Performed By: #### CDP #### [address] [address] Cold Type Artist: Marry Brandon,Urineon 01-22-7248Hcji,UrineSpecimen Description .INDWELLING CATH URINE Culture NO GROWTH Report Status FINAL 01/04/2022[facility] HospitalComment on above:Performed By: #### CDP, MELVIN, BMPX, IPF #### [address] [address] Cold Type Artist: Francisco J Fonseca MDLaboratory - Chemistry and Chemistry - challenge on [id number] gap [Moles/Vol]15 mmol/L9 - 17 mmol/[facility] Calcium [Mass/Vol]8.2 mg/dLLow8.6 - 10.4 mg/dLB[facility] MERCY HEALTHChloride [Moles/Vol]98 mmol/L98 - 107 mmol/LB[facility] HEALTHCO2 [Moles/Vol]23 mmol/L20 - 31 mmol/LB[facility] HEALTHCreatinine [Mass/Vol]0.66 mg/dLLow 0.70 - 1.20 mg/dLBON SEC[facility]Y HEALTHGFR/1.73 sq M.predicted MDRD (S/P/Bld) [Vol rate/Area][facility] HOSPITALComment on above:Average GFR for 70 or more years old: 75 mL/min/1.73sq m Chronic Kidney Disease: <60 mL/min/1.73sq m Kidney failure: <15 mL/min/1.73sq m eGFR calculated using average adult body mass. Additional eGFR calculator available at: http://www.KeriCure/multiple_crcl_2011.htm Glucose [Mass/Vol]90 mg/dL70 - 99 mg/dLBON [facility] HEALTHPhosphate [Mass/Vol]1.9 mg/dLLow2.5 - 4.5 mg/dLB[facility] HEALTHPotassium [Moles/Vol]3.7 mmol/L3.7 - 5.3 mmol/LBON SECMER[facility] HEALTHSodium [Moles/Vol] 136 mmol/L135 - 144 mmol/[facility] BaremetricsUrea nitrogen (BldV) [Mass/Vol]20 mg/dL8 - 23 mg/dLBON SECMERCY HEALTHMagnesium [Mass/Vol]1.5 mg/dLLow1.6 - 2.6 mg/dLBON [facility] BaremetricsAnion gap [Moles/Vol]12 mmol/L9 - 17 mmol/LB[facility] HEALTHCalcium [Mass/Vol]8.1 mg/dLLow8.6 - 10.4 mg/dL [facility] BaremetricsChloride [Moles/Vol]99 mmol/L98 - 107 mmol/LB[facility] HEALTHCO2 [Moles/Vol]23 mmol/L20 - 31 mmol/[facility]ALTH Creatinine [Mass/Vol]0.61 mg/dLLow0.70 - 1.20 mg/dLBON [facility] Baremetrics GFR/1.73 sq M.predicted MDRD (S/P/Bld) [Vol rate/Area][facility] Comment on above:Average GFR for 70 or more years old: 75 mL/min/1.73sq m Chronic Kidney Disease: <60 mL/min/1.73sq m Kidney failure: <15 mL/min/1.73sq m eGFR calculated using average adult body mass. Additional eGFR calculator available at: http://www.KeriCure/Exinda_crcl_2012.htm Glucose [Mass/Vol]125 mg/gTAezp31 - 99 mg/dLBON [facility] MERCY HEALTHPotassium [Moles/Vol]3.4 mmol/LLow3.7 - 5.3 mmol/LB[facility] HEALTHSodium [Moles/Vol]134 mmol/VHsr590 - 144 mmol/LBON [facility]Y HEALTHUrea nitrogen (BldV) [Mass/Vol]19 mg/dL8 - 23 mg/dLB[facility] HEALTHPhosphate [Mass/Vol]2.2 mg/dLLow2.5 - 4.5 mg/dLB[facility] HEALTHAnion gap [Moles/Vol]13 mmol/L9 - 17 mmol/LB[facility] HEALTHCalcium [Mass/Vol]8.4 mg/dLLow8.6 - 10.4 mg/dLB[facility] HEALTHChloride [Moles/Vol]101 mmol/L98 - 107 mmol/LB[facility] HEALTHCO2 [Moles/Vol]23 mmol/L20 - 31 mmol/LB[facility] HEALTHCreatinine [Mass/Vol]0.73 mg/dL0.70 - 1.20 mg/dLBON SECOURS PaperwovenY HEALTHGFR/1.73 sq M.predicted MDRD (S/P/Bld) [Vol rate/Area][facility] CignisComment on above:Average GFR for 70 or more years old: 75 mL/min/1.73sq m Chronic Kidney Disease: <60 mL/min/1.73sq m Kidney failure: <15 mL/min/1.73sq m eGFR calculated using average adult body mass. Additional eGFR calculator available at: http://www.KeriCure/Exinda_crcl_2011.htm Glucose [Mass/Vol]124 mg/zEWaal21 - 99 mg/dLBON [facility] MERCY HEALTHPhosphate [Mass/Vol]2.5 [...] HEALTHChloride [Moles/Vol]101 mmol/L98 - 107 mmol/LB[facility] HEALTHCO2 [Moles/Vol]23 mmol/L20 - 31 mmol/LB[facility] HEALTHCreatinine [Mass/Vol]0.82 mg/dL0.70 - 1.20 mg/dLB[facility] HEALTHGFR/1.73 sq M.predicted MDRD (S/P/Bld) [Vol rate/Area][facility] HOSPITALComment on above:Average GFR for 70 or more years old: 75 mL/min/1.73sq m Chronic Kidney Disease: <60 mL/min/1.73sq m Kidney failure: <15 mL/min/1.73sq m eGFR calculated using average adult body mass. Additional eGFR calculator available at: http://www.Relify.[employer]M [employer]/multiple_crcl_2012.htm Glucose [Mass/Vol]100 mg/tACpdp14 - 99 mg/dLB[facility] HEALTHPhosphate [Mass/Vol]2.7 mg/dL2.5 - 4.5 mg/dLB[facility] HEALTHPotassium [Moles/Vol] 3.9 mmol/L3.7 - 5.3 mmol/LB[facility] HEALTHSodium [Moles/Vol]136 mmol/L 135 - 144 mmol/LB[facility]CY HEALTHUrea nitrogen (BldV) [Mass/Vol]26 mg/dL High8 - 23 mg/dLBON [facility] HEALTHGlucose [Mass/Vol]81 mg/dL75 - 110 mg/dL [facility] HEALTHAnion gap [Moles/Vol]11 mmol/L9 - 17 mmol/LB[facility] HEALTHCalcium [Mass/Vol]8.3 mg/dLLow8.6 - 10.4 mg/dLB[facility] HEALTHChloride [Moles/Vol]104 mmol/L98 - 107 mmol/LB[facility] HEALTHCO2 [Moles/Vol]21 mmol/L20 - 31 mmol/[facility] HEALTHCreatinine [Mass/Vol] 0.83 mg/dL0.70 - 1.20 mg/dLBON [facility] HEALTHGFR/1.73 sq M.predicted MDRD (S/P/Bld) [Vol rate/Area][facility] HOSPITALComment on above:Average GFR for 70 or more years old: 75 mL/min/1.73sq m Chronic Kidney Disease: <60 mL/min/1.73sq m Kidney failure: <15 mL/min/1.73sq m eGFR calculated using average adult body mass. Additional eGFR calculator available at: http://www.KeriCure/multiple_crcl_2011.htm Glucose [Mass/Vol]71 mg/dL70 - 99 mg/dLBON [facility] HEALTHPhosphate [Mass/Vol]3.2 mg/dL2.5 - 4.5 mg/dLB[facility] HEALTHPotassium [Moles/Vol] 4.5 mmol/L3.7 - 5.3 mmol/LBON [facility] HEALTHComment on above:SPECIMEN SLIGHTLY HEMOLYZED, RESULTS MAY BE ADVERSELY AFFECTED.Sodium [Moles/Vol]136 mmol/L135 - 144 mmol/LB[facility] HEALTHUrea nitrogen (BldV) [Mass/Vol]29 mg/dLHigh8 - 23 mg/dLB[facility] HEALTHLaboratory - Hematology and Cell countson [id number] (Bld) [#/Vol]0.04 10*3/uLBON SEC[facility]RS [facility] HEALTH Basophils/100 WBC (Bld)0 %0 - 2 %[facility] HOSPITALEosinophils/100 WBC (Bld)0 %Low1 - 4 %[facility] HOSPITALHematocrit (Bld) [Volume fraction]35.1 %Low40.7 - 50.3 %[facility] HOSPITALHemoglobin (Bld) [Mass/Vol]12.0 g/dLLow 13.0 - 17.0 g/dLBON [facility] HOSPITALImmature granulocytes/100 WBC (Bld)1 % Repd5ZDJ [facility] HOSPITALLymphocytes/100 WBC (Bld)4 %Low24 - 43 %[facility]PITALH (RBC) [Entitic mass]27.6 pg25.2 - 33.5 pgCENTRA LYNCHBURG GENERAL HOSPITALHC (RBC) [Mass/Vol]34.2 g/dL28.4 - 34.8 g/dLBON SECGUERNSEY MEMORIAL HOSPITALV (RBC) [Entitic vol]80.7 fLLow82.6 - 102.9 fLWELLMONT L[facility]OME [facility] Monocytes/100 WBC (Bld)6 %3 - 12 %[facility] HOSPITALPlatelet distribution width (Bld) [Ratio]19.0 %High11.8 - 14.4 %[facility] HOSPITALPlatelet mean volume (Bld) [Entitic vol]12.3 fL8.1 - 13.5 fLJOHNSTON MEMORIAL HOSPITAL HEALTHPlatelets (Bld) [#/Vol]245 10*3/uLWELLMONT LONESOME PINE MT. VIEW HOSPITALRBC (Bld) [#/Vol]4.35 10*6/uL 4.21 - 5.77 m/uLWELLMONT LONESOME PINE MT. VIEW HOSPITALRBC (Bld) [#/Vol]ANISOCYTOSIS PRESENTWELLMONT LON[facility]OME PINE [facility]. VIEW HOSPITALComment on above:MICROCYTOSIS PRESENTSegmented neutrophils/100 WBC (Bld)89 %High36 - 65 %[facility] HOSPITALWBC (Bld) [#/Vol]21.4 10*3/uLHighWELLMONT LONESOME PINE MT. VIEW HOSPITALLaboratory - Microbiology and Antimicrobial susceptibilityon [id number] identified Cx Nom (U)NO GROWTH [facility] HOSPITALMagnesiumon [id number] [Mass/Vol]1.5 mg/dLLow 1.6-2.6[facility] HospitalComment on above:Performed By: #### CDP, MELVIN, BMPX, IPF #### [facility] [address] [place] [address] Cold Type Artist: Maggie Brandon Panel Informationon [id number] >60>60 mL/minBON [facility] MERCY HEALTHGFR Non->60>60 mL/minBON [...] HEALTHAbsolute Lymph # 0.89LowB[facility]RS MERCY HEALTHAbsolute Tillman #1.33HighB[facility] Interpretation and review of laboratory resultsAbnormalB[facility] NRBC Automated0.00.0 per 100 WBCBON [facility] FOST[facility] COMMUNITY HOSPITALSegs Ztlyiwzx81.94High BON [facility]ICAL CENTERSpecimen Description.INDWELLING CATH URINEBON SANF[facility] WE[facility]STER MEDICAL CENTERPhosphorus, Inorg.on [id number], Inorg.2.2 mg/dLLow2.5-4.5[facility] Comment on above:Performed By: #### CDP, MELVIN, BMPX, IPF #### [facility] [address] [place] [address] Cold Type Artist: Francisco J Fonseca MDPhosphorus, Inorg.2.5 mg/dLNormal2.5-4.5[facility] HospitalComment on above:Performed By: #### CDP, MELVIN, BMPX, IPF #### [facility] [address] [place] [address] Cold Type Artist: DENISE Brandonhosphorus, Inorg.2.7 mg/dLNormal2.5-4.5[facility] HospitalComment on above:Performed By: #### BMPX, MELVIN #### [facility] [address] [place] [address] Cold Type Artist: DNEISE Brandonhosphorus, Inorg.3.2 mg/dLNormal2.5-4.5[facility] HospitalComment on above:Performed By: #### CDP #### [facility] [address] [place] [address] Cold Type Artist: Rubina Brandon Metab w/rfx MGon 01-03-2022(cont.)Normal [facility] HospitalComment on above:Result Comment: Average GFR for 70 or more years old: 75 mL/min/1.73sq m Chronic Kidney Disease: <60 mL/min/1.73sq m Kidney failure: <15 mL/min/1.73sq m eGFR calculated using average adult body mass. Additional eGFR calculator available at: http://www.Relify.com/multiple_crcl_2012.htmPerformed By: #### CDP, MELVIN, BMPX, IPF #### [facility] [address] [place] [address] Cold Type Artist: Francisco J Fonseca MDAnion gap [Moles/Vol]12 mmol/LNormal9-17[facility] HospitalComment on above:Performed By: #### CDP, MELVIN, BMPX, IPF #### [facility] [address] [place] [address] Cold Type Artist: Francisco J Fonseca MDCalcium [Mass/Vol]8.3 mg/dLLow8.6-10.4[facility] HospitalComment on above:Performed By: #### CDP, MELVIN, BMPX, IPF #### [address] [address] Cold Type Artist: Francisco J Fonseca MDChloride [Moles/Vol]102 mmol/XGrgifg60-891BawrgAvita Health System Bucyrus HospitalComment on above:Performed By: #### CDP, MELVIN, BMPX, IPF #### [facility] [address] [place] [address] Cold Type Artist: Francisco J Fonseca MDCO2 [Moles/Vol]21 mmol/QCwtlyu63-27EijplAvita Health System Bucyrus HospitalComment on above:Performed By: #### CDP, MELVIN, BMPX, IPF #### [facility] [address] [place] [address] Cold Type Artist: Francisco J Fonseca MDCreatinine [Mass/Vol]0.88 mg/dLNormal0.70-1.20 [facility] HospitalComment on above:Performed By: #### CDP, MELVIN, BMPX, IPF #### [facility] [address] [place] [address] Cold Type Artist: Francisco J Fonseca MDGFR, Amer>60Normal>60[facility] HospitalComment on above:Performed By: #### CDP, MELVIN, BMPX, IPF #### [facility] [address] [place] [address] Cold Type Artist: Francisco J Fonseac MDGFR,non Amer>60Normal>60[facility] HospitalComment on above:Performed By: #### CDP, MELVIN, BMPX, IPF #### [facility] [address] [place] [address] Cold Type Artist: Francisco J Fonseca MDGlucose [Mass/Vol]74 mg/dBWhlkxp12-33TvnruWhittier Hospital Medical CenterComment on above:Performed By: #### CDP, MELVIN, BMPX, IPF #### [address] [address] Cold Type Artist: Francisco J Fonseca MDPotassium [Moles/Vol]4.2 mmol/LNormal3.7-5.3 [facility] HospitalComment on above:Performed By: #### CDP, MELVIN, BMPX, IPF #### [address] [address] Cold Type Artist: Francisco J Fonseca MDSodium [Moles/Vol]135 mmol/WRdgupt822-397TtjtxAvita Health System Bucyrus HospitalComment on above:Performed By: #### CDP, MELVIN, BMPX, IPF #### [facility] [address] [place] [address] Cold Type Artist: Francisco J Fonseca MDUrea nitrogen [Mass/Vol]29 mg/dLHigh8-23[facility] HospitalComment on above:Performed By: #### CDP, MELVIN, BMPX, IPF #### [facility] [address] [place] [address] Cold Type Artist: Francisco J Fonseca MD(cont.)[facility] Comment on above:Result Comment: Average GFR for 70 or more years old: 75 mL/min/1.73sq m Chronic Kidney Disease: <60 mL/min/1.73sq m Kidney failure: <15 mL/min/1.73sq m eGFR calculated using average adult body mass. Additional eGFR calculator available at: http://www.Relify.[employer]M [employer]/multiple_crcl_2012.htmPerformed By: #### CDP #### [facility] [address] [place] [address] Cold Type Artist: Francisco J Fonseca MDAnion gap [Moles/Vol]12 mmol/LNormal9-17[facility] HospitalComment on above:Performed By: #### CDP #### [facility] [address] [place] [address] Cold Type Artist: MARLENY Brandonalcium [Mass/Vol]8.4 mg/dLLow8.6-10.4[facility] HospitalComment on above:Performed By: #### CDP #### [facility] [address] [place] [address] Cold Type Artist: MARLENY Brandonhloride [Moles/Vol]103 mmol/OKxthks85-204LsuwrAvita Health System Bucyrus HospitalComment on above:Performed By: #### CDP #### [facility] [address] [place] [address] Cold Type Artist: Francisco J Fonseca MDCO2 [Moles/Vol]21 mmol/ATfqgqt17-80MqphjAvita Health System Bucyrus HospitalComment on above:Performed By: #### CDP #### [facility] [address] [place] [address] Cold Type Artist: MALRENY Brandonreatinine [Mass/Vol]0.93 mg/dLNormal0.70-1.20 [facility] HospitalComment on above:Performed By: #### CDP #### [facility] [address] [place] [address] Cold Type Artist: Francisco J Fonseca MDGFR, Amer>60Normal>60[facility] HospitalComment on above:Performed By: #### CDP #### [address] [address] Cold Type Artist: Francisco J Fonseca MDGFR,non Amer>60Normal>60[facility] HospitalComment on above:Performed By: #### CDP #### [address] [address] Cold Type Artist: Francisco J Fonseca MDGlucose [Mass/Vol]155 mg/xRMcfn89-02MfrjhWhittier Hospital Medical CenterComment on above:Performed By: #### CDP #### [address] [address] Cold Type Artist: DENISE Brandonotassium [Moles/Vol]3.9 mmol/LNormal3.7-5.3 [facility] HospitalComment on above:Performed By: #### CDP #### [address] [address] Cold Type Artist: MEIR Brandonodium [Moles/Vol]136 mmol/BCtgqvx666-594XspbpAvita Health System Bucyrus HospitalComment on above:Performed By: #### CDP #### [address] [address] Cold Type Artist: Francisco J Fonseca MDUrea nitrogen [Mass/Vol]28 mg/dLHigh8-23[facility] HospitalComment on above:Performed By: #### CDP #### [address] [address] Cold Type Artist: Francisco J Fonseca MD(cont.)[facility] Comment on above:Result Comment: Average GFR for 70 or more years old: 75 mL/min/1.73sq m Chronic Kidney Disease: <60 mL/min/1.73sq m Kidney failure: <15 mL/min/1.73sq m eGFR calculated using average adult body mass. Additional eGFR calculator available at: http://www.Relify.[employer]/multiple_crcl_2012.htmPerformed By: #### CDP, MELVIN, BMPX, IPF #### [facility] [address] [place] [address] Cold Type Artist: Francisco J Fonseca MDAnion gap [Moles/Vol]11 mmol/LNormal9-17[facility] HospitalComment on above:Performed By: #### CDP, MELVIN, BMPX, IPF #### [address] [address] Cold Type Artist: Francisco J Fonseca MDCalcium [Mass/Vol]8.4 mg/dLLow8.6-10.4[facility] HospitalComment on above:Performed By: #### CDP, MELVIN, BMPX, IPF #### [facility] [address] [place] [address] Cold Type Artist: Francisco J Fonseca MDChloride [Moles/Vol]103 mmol/SRuhixu37-800MdzyxAvita Health System Bucyrus HospitalComment on above:Performed By: #### CDP, MELVIN, BMPX, IPF #### [facility] [employer] [facility] [address] [place] [address] Cold Type Artist: Francisco J Fonseca MDCO2 [Moles/Vol]24 mmol/VDprmmt73-05CzzxxAvita Health System Bu[facility]rus HospitalComment on above:Performed By: #### CDP, MELVIN, BMPX, IPF #### [facility] [address] [place] [address] Cold Type Artist: Francisco J Fonseca MDCreatinine [Mass/Vol]0.92 mg/dLNormal0.70-1.20 [facility] HospitalComment on above:Performed By: #### CDP, MELVIN, BMPX, IPF #### [facility] [address] [place] [address] Cold Type Artist: Francisco J Fonseca MDGFR, Amer>60Normal>60[facility] HospitalComment on above:Performed By: #### CDP, MELVIN, BMPX, IPF #### [facility] [address] [place] [address] Cold Type Artist: Francisco J Fonseca MDGFR,non Amer>60Normal>60[facility] HospitalComment on above:Performed By: #### CDP, MELVIN, BMPX, IPF #### [facility] [address] [place] [address] Cold Type Artist: Francisco J Fonseca MDGlucose [Mass/Vol]226 mg/vZSekh86-59ZwgdsWhittier Hospital Medical CenterComment on above:Performed By: #### CDP, MELVIN, BMPX, IPF #### [facility] [address] [place] [address] Cold Type Artist: Francisco J Fonseca, MDPotassium [Moles/Vol]5.0 mmol/LNormal3.7-5.3 [facility] HospitalComment on above:Performed By: #### CDP, MELVIN, BMPX, IPF #### [facility] [address] [place] [address] Cold Type Artist: Francisco J Fonseca MDSodium [Moles/Vol]138 mmol/ZVdjkwa210-504LhkapAvita Health System Bucyrus HospitalComment on above:Performed By: #### CDP, MELVIN, BMPX, IPF #### [facility] [address] [place] [address] Cold Type Artist: Francisco J Fonseca MDUrea nitrogen [Mass/Vol]26 mg/dLHigh8-23[facility] HospitalComment on above:Performed By: #### CDP, MELVIN, BMPX, IPF #### [facility] [address] [place] [address] Cold Type Artist: Francisco J Fonseca MD(cont.)NormalAvita Health System [facility] Comment on above:Result Comment: Average GFR for 70 or more years old: 75 mL/min/1.73sq m Chronic Kidney Disease: <60 mL/min/1.73sq m Kidney failure: <15 mL/min/1.73sq m eGFR calculated using average adult body mass. Additional eGFR calculator available at: http://www.Relify.[employer]/multiple_crcl_2012.htmPerformed By: #### CDP, MELVIN, BMPX, IPF #### [facility] [address] [place] [address] Cold Type Artist: Francisco J Fonseca MDAnion gap [Moles/Vol]13 mmol/LNormal9-17[facility] HospitalComment on above:Performed By: #### CDP, MELVIN, BMPX, IPF #### [facility] [address] [place] [address] Cold Type Artist: MARLENY Brandonalcium [Mass/Vol]8.4 mg/dLLow8.6-10.4[facility] HospitalComment on above:Performed By: #### CDP, MELVIN, BMPX, IPF #### [facility] [address] [place] [address] Cold Type Artist: Francisco J Fonseca MDChloride [Moles/Vol]104 mmol/JYgixdb89-567BffxeAvita Health System Bucyrus HospitalComment on above:Performed By: #### CDP, MELVIN, BMPX, IPF #### [facility] [address] [place] [address] Cold Type Artist: Francisco J Fonseca MDCO2 [Moles/Vol]21 mmol/POezrqe56-75OgneoAvita Health System Bucyrus HospitalComment on above:Performed By: #### CDP, MELVIN, BMPX, IPF #### [facility] [address] [place] [address] Cold Type Artist: Francisco J Fonseca MDCreatinine [Mass/Vol]0.84 mg/dLNormal0.70-1.20 [facility] HospitalComment on above:Performed By: #### CDP, MELVIN, BMPX, IPF #### [facility] [address] [place] [address] Cold Type Artist: Francisco J Fonseca MDGFR, Amer>60Normal>60[facility] HospitalComment on above:Performed By: #### CDP, MELVIN, BMPX, IPF #### [address] [address] Cold Type Artist: Francisco J Fonseca MDGFR,non Amer>60Normal>60[facility] HospitalComment on above:Performed By: #### CDP, MELVIN, BMPX, IPF #### [address] [address] Cold Type Artist: Francisco J Fonseca MDGlucose [Mass/Vol]176 mg/[id number] Hospital Of West CovinaComment on above:Performed By: #### CDP, MELVIN, BMPX, IPF #### [place] [address] Cold Type Artist: Francisco J Fonseca MDPotassium [Moles/Vol]4.5 mmol/LNormal3.7-5.3 [facility] HospitalComment on above:Performed By: #### CDP, MELVIN, BMPX, IPF #### [address] [address] Cold Type Artist: Francisco J Fonseca MDSodium [Moles/Vol]138 mmol/[id number] Health System Bucyrus HospitalComment on above:Performed By: #### CDP, MELVIN, BMPX, IPF #### [address] [address] Cold Type Artist: Francisco J Fonseca MDUrea nitrogen [Mass/Vol]21 mg/dLNormal8-23[facility] HospitalComment on above:Performed By: #### CDP, MELVIN, BMPX, IPF #### [facility] [address] [place] [address] Cold Type Artist: Francisco J Fonseca MD(cont.)[facility] Comment on above:Result Comment: Average GFR for 70 or more years old: 75 mL/min/1.73sq m Chronic Kidney Disease: <60 mL/min/1.73sq m Kidney failure: <15 mL/min/1.73sq m eGFR calculated using average adult body mass. Additional eGFR calculator available at: http://www.Relify.[employer]/multiple_crcl_2012.htmPerformed By: #### CDP, MELVIN, BMPX, IPF #### [employer] [address] [place] [address] Cold Type Artist: Francisco J Fonseca MDAnion gap [Moles/Vol]6 mmol/LLow9-17[facility] HospitalComment on above:Performed By: #### CDP, MELVIN, BMPX, IPF #### [facility] [address] [place] [address] Cold Type Artist: Francisco J Fonseca MDCalcium [Mass/Vol]8.5 mg/dLLow8.6-10.4[facility] HospitalComment on above:Performed By: #### CDP, MELVIN, BMPX, IPF #### [employer] [address] [place] [address] Cold Type Artist: Francisco J Fonseca MDChloride [Moles/Vol]105 mmol/REygpdg83-328RwdynAvita Health System Bucyrus HospitalComment on above:Performed By: #### CDP, MELVIN, BMPX, IPF #### [employer] [address] [place] [address] Cold Type Artist: Francisco J Fonseca MDCO2 [Moles/Vol]25 mmol/IQqkydh87-01ClxgxAvita Health System Bucyrus HospitalComment on above:Performed By: #### CDP, MELVIN, BMPX, IPF #### [employer] [address] [place] [address] Cold Type Artist: MARLENY Brandonreatinine [Mass/Vol]0.75 mg/dLNormal0.70-1.20 [facility] HospitalComment on above:Performed By: #### CDP, MELVIN, BMPX, IPF #### [address] [address] Cold Type Artist: Francisco J Fonseca MDGFR, Amer>60Normal>60MerKindred HospitalComment on above:Performed By: #### CDP, MELVIN, BMPX, IPF #### [address] [address] Cold Type Artist: ARTURO Brandon,non Amer>60Normal>60[facility] HospitalComment on above:Performed By: #### CDP, MELVIN, BMPX, IPF #### [address] [address] Cold Type Artist: Francisco J Fonseca MDGlucose [Mass/Vol]81 mg/dBRidhkz74-61ParszWhittier Hospital Medical CenterComment on above:Performed By: #### CDP, MELVIN, BMPX, IPF #### [address] [address] Cold Type Artist: Francisco J Fonseca MDPotassium [Moles/Vol]4.6 mmol/LNormal3.7-5.3 [facility] HospitalComment on above:Performed By: #### CDP, MELVIN, BMPX, IPF #### [address] [address] Cold Type Artist: Francisco J Fonseca MDSodium [Moles/Vol]136 mmol/PEmncvh898-063QeujkAvita Health System Bucyrus HospitalComment on above:Performed By: #### CDP, MELVIN, BMPX, IPF #### [facility] [address] [place] [address] Cold Type Artist: Francisco J Fonseca MDUrea nitrogen [Mass/Vol]18 mg/dLNormal8-23[facility] HospitalComment on above:Performed By: #### CDP, MELVIN, BMPX, IPF #### [address] [address] Cold Type Artist: MARLENY Brandon with Diffon [id number]. Basophil0.00 k/uL Normal0.0-0.2MWhittier Hospital Medical CenterComment on above:Performed By: #### CDP #### [address] [address] Cold Type Artist: Vidhya Brandon.Imm.Granulocyte0.00 k/uLNormal0.00-0.30[facility] HospitalComment on above:Performed By: #### CDP #### [address] [address] Cold Type Artist: Vidhya Brandon.Neutrophil (Seg)19.89 k/uLHigh1.8-7.7[facility] HospitalComment on above:Performed By: #### CDP #### [address] [address] Cold Type Artist: Francisco J Fonseca MDBasophils/100 WBC (Bld)0 %Normal0-2MWhittier Hospital Medical CenterComment on above:Performed By: #### CDP #### [address] [address] Cold Type Artist: Francisco J Fonseca MDEosinophils (Bld) [#/Vol]0.00 10*3/uLNormal 0.0-0.4[facility] HospitalComment on above:Performed By: #### CDP #### [address] [address] Cold Type Artist: Francisco J Madoff, MDEosinophils/100 WBC (Bld)0 %Low1-4[facility] HospitalComment on above:Performed By: #### CDP #### [address] [address] Cold Type Artist: Francisco J Fonseca MDImmature granulocytes/100 WBC (Bld)0 %Normal0 [facility] HospitalComment on above:Performed By: #### CDP #### [address] [address] Cold Type Artist: Francisco J Fonseca MDLymphocytes (Bld) [#/Vol]0.88 10*3/uLLow1.0-4.8 [facility] HospitalComment on above:Performed By: #### CDP #### [address] [address] Cold Type Artist: Francisco J Fonseca MDLymphocytes/100 WBC (Bld)4 %Scf84-17RvmoyAvita Health System Bucyrus HospitalComment on above:Performed By: #### CDP #### [address] [address] Cold Type Artist: MARK Brandononocytes (Bld) [#/Vol]1.33 10*3/uLHigh0.1-0.8 [facility] HospitalComment on above:Performed By: #### CDP #### [address] [address] Cold Type Artist: Francisco J Fonseca MDMonocytes/100 WBC (Bld)6 %Normal1-7[facility] HospitalComment on above:Performed By: #### CDP #### [address] [address] Cold Type Artist: Francisco J Fonseca MDMorphology Walter (Bld) [Interp]MICROCYTOSIS PRESENTNormalAvita Health System Bucyrus HospitalComment on above:Result Comment: ANISOCYTOSIS PRESENT 1+ ACANTHOCYTESPerformed By: #### CDP #### [address] [address] Cold Type Artist: Francisco J Fonseca MDNeutrophil (Seg)90 %Wese73-60JfazcAvita Health System Bucyrus HospitalComment on above:Performed By: #### CDP #### [address] [address] Cold Type Artist: Francisco J Fonseca MDErythrocyte distribution width (RBC) [Ratio]18.9 %High11.8-14.4[facility] HospitalComment on above:Performed By: #### CDP #### [address] [address] Cold Type Artist: Francisco J Fonseca MDHematocrit (Bld) [Volume fraction]37.4 %Low 40.7-50.3MWhittier Hospital Medical CenterComment on above:Performed By: #### CDP #### [address] [address] Cold Type Artist: Francisco J Fonseca MDHemoglobin (Bld) [Mass/Vol]12.2 g/dLLow13.0-17.0 [facility] HospitalComment on above:Performed By: #### CDP #### [address] [address] Cold Type Artist: MARK BrandonCH (RBC) [Entitic mass]26.9 jjNqrupx23.2-33.5 [facility] HospitalComment on above:Performed By: #### CDP #### [address] [address] Cold Type Artist: MARK BrandonCHC (RBC) [Mass/Vol]32.6 g/uZZweeyr22.4-34.8 [facility] HospitalComment on above:Performed By: #### CDP #### [address] [place] [address] Cold Type Artist: MARK BrandonCV (RBC) [Entitic vol]82.4 fLLow82.6-102.9[facility] HospitalComment on above:Performed By: #### CDP #### [address] [address] Cold Type Artist: SONIA Brandon Automated0.0 per 100 WBCNormal0.0[facility] HospitalComment on above:Performed By: #### CDP #### [address] [address] Cold Type Artist: Meera Brandon mean volume (Bld) [Entitic vol]12.6 fL Normal8.1-13.5[facility] HospitalComment on above:Performed By: #### CDP #### [address] [address] Cold Type Artist: Cade Brandon (Bld) [#/Vol]292 10*3/sGKufmmo380-258 [facility] HospitalComment on above:Performed By: #### CDP #### [address] [address] Cold Type Artist: YOLA Brandon (Bld) [#/Vol]4.54 10*6/uLNormal4.21-5.77 [facility] HospitalComment on above:Performed By: #### CDP #### [address] [address] Cold Type Artist: PABLO Brandon (Bld) [#/Vol]22.1 10*3/uLHigh3.5-11.3MWhittier Hospital Medical CenterComment on above:Performed By: #### CDP #### [address] [address] Cold Type Artist: Francisco J Fonseca MDHemoglobin A1Con 66-09-9223Krtwwzo [Mass/Vol]223 mg/dLNormalAvita Health System Bucyrus HospitalComment on above:Result Comment: The ADA and AACC recommend providing the estimated average glucose result to permit better patient understanding of their HBA1c result.Performed By: #### CDP, MELVIN, BMPX, IPF #### [facility] [address] [place] [address] Cold Type Artist: Francisco J oFnseca MDHbA1c (Bld) [Mass fraction]9.4 %High4.0-6.0[facility] HospitalComment on above:Performed By: #### CDP, MELVIN, BMPX, IPF #### [facility] [address] [place] [address] Cold Type Artist: Francisco J Fonseca MDLaboratory - Chemistry and Chemistry - challenge on [id number] gap [Moles/Vol]12 mmol/L9 - 17 mmol/LBON [employer] Calcium [Mass/Vol]8.3 mg/dLLow8.6 - 10.4 mg/dLBON SECLOCK8Chloride [Moles/Vol]102 mmol/L98 - 107 mmol/LBON SECLOCK8CO2 [Moles/Vol]21 mmol/L20 - 31 mmol/LBON SECLOCK8Creatinine [Mass/Vol]0.88 mg/dL0.70 - 1.20 mg/dLBON SECLOCK8GFR/1.73 sq M.predicted MDRD (S/P/Bld) [Vol rate/Area]BON [facility]ALL[facility]8Comment on above:Average GFR for 70 or more years old: 75 mL/min/1.73sq m Chronic Kidney Disease: <60 mL/min/1.73sq m Kidney failure: <15 mL/min/1.73sq m eGFR calculated using average adult body mass. Additional eGFR calculator available at: http://www.Relify.[employer]/multiple_crcl_2012.htm Glucose [Mass/Vol]74 mg/dL70 - 99 mg/dLBON SEC[facility] HEALTHPhosphate [Mass/Vol]3.3 mg/dL2.5 - 4.5 mg/dLBON [facility] HOSPITALPotassium [Moles/Vol] 4.2 mmol/L3.7 - 5.3 mmol/LBON [facility] HOSPITALSodium [Moles/Vol]135 mmol/L 135 - 144 mmol/LBON [facility] HOSPITALUrea nitrogen (BldV) [Mass/Vol]29 mg/dL High8 - 23 mg/dLBON [facility] HEALTHGlucose [Mass/Vol]69 mg/dLLow75 - 110 mg/dLBON [facility] HEALTHGlucose [Mass/Vol]93 mg/dL75 - 110 mg/dLBON [facility] HOSPITALGlucose [Mass/Vol]55 mg/dLLow75 - 110 mg/dLBON [facility] Comment on above:Critical NotedGlucose [Mass/Vol]88 mg/dL75 - 110 mg/dLBON [facility] HOSPITALAnion gap [Moles/Vol]12 mmol/L9 - 17 mmol/LBON [facility] HOSPITALCalcium [Mass/Vol]8.4 mg/dLLow8.6 - 10.4 mg/dLBON [facility] Chloride [Moles/Vol]103 mmol/L98 - 107 mmol/LBON [facility] HOSPITALCO2 [Moles/Vol]21 mmol/L20 - 31 mmol/LBON [facility] HOSPITALCreatinine [Mass/Vol] 0.93 mg/dL0.70 - 1.20 mg/dLBON [facility] HOSPITALGFR/1.73 sq M.predicted MDRD (S/P/Bld) [Vol rate/Area]BON [facility] HOSPITALComment on above:Average GFR for 70 or more years old: 75 mL/min/1.73sq m Chronic Kidney Disease: <60 mL/min/1.73sq m Kidney failure: <15 mL/min/1.73sq m eGFR calculated using average adult body mass. Additional eGFR calculator available at: http://www.K[employer]/multiple_crcl_2012.htm Glucose [Mass/Vol]155 mg/jILuku65 - 99 mg/dLBON [facility] HEALTHPhosphate [Mass/Vol]2.9 mg/dL2.5 - 4.5 mg/dLBON [facility] HEALTHPotassium [Moles/Vol] 3.9 mmol/L3.7 - 5.3 mmol/LBON [facility] HEALTHSodium [Moles/Vol]136 mmol/L 135 - 144 mmol/LBON [facility]ITALY HEALTHUrea nitrogen (BldV) [Mass/Vol]28 mg/dL High8 - 23 mg/dLBON [facility] HEALTHGlucose [Mass/Vol]152 mg/rFWjqb55 - 110 mg/dLBON [facility] HEALTHGlucose [Mass/Vol]216 mg/sTPppb44 - 110 mg/dLBON [facility] HEALTHGlucose [Mass/Vol]242 mg/qUKxbb92 - 110 mg/dLBON [facility] HEALTHGlucose [Mass/Vol]243 mg/aWAjql20 - 110 mg/dLBON [facility] HEALTHAnion gap [Moles/Vol]11 mmol/L9 - 17 mmol/LBON [facility] HEALTHCalcium [Mass/Vol]8.4 mg/dLLow8.6 - 10.4 mg/dLBON [facility] HEALTHChloride [Moles/Vol]103 mmol/L98 - 107 mmol/LBON [facility] HEALTHCO2 [Moles/Vol]24 mmol/L20 - 31 mmol/LBON [facility] HEALTHCreatinine [Mass/Vol]0.92 mg/dL0.70 - 1.20 mg/dLBON [facility] HEALTHGFR/1.73 sq M.predicted MDRD (S/P/Bld) [Vol rate/Area]BON [facility] HOSPITALComment on above:Average GFR for 70 or more years old: 75 mL/min/1.73sq m Chronic Kidney Disease: <60 mL/min/1.73sq m Kidney failure: <15 mL/min/1.73sq m eGFR calculated using average adult body mass. Additional eGFR calculator available at: http://www.Keri[employer]/multiple_crcl_2012.htm Glucose [Mass/Vol]226 mg/tVGxor49 - 99 mg/dLBON [facility] HEALTHPhosphate [Mass/Vol]3.5 mg/dL2.5 - 4.5 mg/dLBON [facility] HEALTHPotassium [Moles/Vol] 5.0 mmol/L3.7 - 5.3 mmol/LBON [facility] HEALTHSodium [Moles/Vol]138 mmol/L 135 - 144 mmol/LBON [facility] HEALTHUrea nitrogen (BldV) [Mass/Vol]26 mg/dL High8 - 23 mg/dLBON [facility] HEALTHGlucose [Mass/Vol]214 mg/sFNxde91 - 110 mg/dLBON [facility] HEALTHAnion gap [Moles/Vol]13 mmol/L9 - 17 mmol/LBON [facility] HEALTHCalcium [Mass/Vol]8.4 mg/dLLow8.6 - 10.4 mg/dLBON [facility] HEALTHChloride [Moles/Vol]104 mmol/L98 - 107 mmol/LBON [facility] HEALTHCO2 [Moles/Vol]21 mmol/L20 - 31 mmol/LBON [facility] HEALTHCreatinine [Mass/Vol]0.84 mg/dL0.70 - 1.20 mg/dLBON [facility] HEALTHGFR/1.73 sq M.predicted MDRD (S/P/Bld) [Vol rate/Area][facility] HOSPITALComment on above:Average GFR for 70 or more years old: 75 mL/min/1.73sq m Chronic Kidney Disease: <60 mL/min/1.73sq m Kidney failure: <15 mL/min/1.73sq m eGFR calculated using average adult body mass. Additional eGFR calculator available at: http://www.Relify.[employer]/multiple_crcl_2011.htm Glucose [Mass/Vol]176 mg/cVZkkm48 - 99 mg/dLBON [facility] HEALTHPhosphate [Mass/Vol]3.1 mg/dL2.5 - 4.5 mg/dLBON [facility] HEALTHPotassium [Moles/Vol] 4.5 mmol/L3.7 - 5.3 mmol/LBON [facility] HEALTHSodium [Moles/Vol]138 mmol/L 135 - 144 mmol/LBON [facility] HEALTHUrea nitrogen (BldV) [Mass/Vol]21 mg/dL8 - 23 mg/dLBON [facility] HEALTHGlucose [Mass/Vol]126 mg/kPKusr95 - 110 mg/dL BON [facility]NEW [facility]Y HEALTHGlucose [Mass/Vol]165 mg/lFUxot29 - 110 mg/dLBON [facility] HEALTHGlucose [Mass/Vol]142 mg/sKWrop48 - 110 mg/dLBON [facility] HEALTHGlucose [Mass/Vol]89 mg/dL75 - 110 mg/dLBON [facility] HEALTHGlucose [Mass/Vol]71 mg/dLLow75 - 110 mg/dLBON [facility] HEALTHGlucose [Mass/Vol]82 mg/dL75 - 110 mg/dLBON [facility] HEALTHGlucose [Mass/Vol]128 mg/rGJmsj44 - 110 mg/dLBON SECMERCY HEALTHAnion gap [Moles/Vol]6 mmol/LLow9 - 17 mmol/L [facility] HOSPITALCalcium [Mass/Vol]8.5 mg/dLLow8.6 - 10.4 mg/dLBON [facility] HEALTHChloride [Moles/Vol]105 mmol/L98 - 107 mmol/LBON [facility] HOSPITALCO2 [Moles/Vol]25 mmol/L20 - 31 mmol/LBON [facility] Creatinine [Mass/Vol]0.75 mg/dL0.70 - 1.20 mg/dLBON [facility] HOSPITALGFR/1.73 sq M.predicted MDRD (S/P/Bld) [Vol rate/Area][facility] HOSPITALComment on above:Average GFR for 70 or more years old: 75 mL/min/1.73sq m Chronic Kidney Disease: <60 mL/min/1.73sq m Kidney failure: <15 mL/min/1.73sq m eGFR calculated using average adult body mass. Additional eGFR calculator available at: http://www.Relify.[employer]/multiple_crcl_2012.htm Glucose [Mass/Vol]81 mg/dL70 - 99 mg/dLBON [facility] HEALTHPhosphate [Mass/Vol]2.5 mg/dL2.5 - 4.5 mg/dLBON [facility] HOSPITALPotassium [Moles/Vol] 4.6 mmol/L3.7 - 5.3 mmol/LBON [facility] HEALTHSodium [Moles/Vol]136 mmol/L 135 - 144 mmol/LBON [facility] HEALTHUrea nitrogen (BldV) [Mass/Vol]18 mg/dL8 - 23 mg/dLBON [facility] HOSPITALGlucose [Mass/Vol]187 mg/oIWpfw74 - 110 mg/dL [facility]OS[facility]ITALLaboratory - Hematology and Cell countson 01-03-2022 Basophils (Bld) [#/Vol]0.00 10*3/uLBON [facility] HOSPITALBasophils/100 WBC (Bld)0 %0 - 2 %[facility] HOSPITALEosinophils/100 WBC (Bld)0 %Low1 - 4 %[facility] HOSPITALHematocrit (Bld) [Volume fraction]37.4 %Low40.7 - 50.3 %[facility] HOSPITALHemoglobin (Bld) [Mass/Vol]12.2 g/dLLow13.0 - 17.0 g/dLBON [facility] HOSPITALImmature granulocytes/100 WBC (Bld)0 %0BON [facility] HOSPITALLymphocytes/100 WBC (Bld)4 %Low24 - 44 %[facility]ITALH (RBC) [Entitic mass]26.9 pg25.2 - 33.5 pgCENTRA LYNCHBURG GENERAL HOSPITALHC (RBC) [Mass/Vol] 32.6 g/dL28.4 - 34.8 g/dLBON [facility]ALTH CENTERV (RBC) [Entitic vol]82.4 fL Low82.6 - 102.9 fLWELLMONT LONESOME PINE [facility]. [facility]IEW HOSPITALMonocytes/100 WBC (Bld)6 %1 - 7 %[facility] HOSPITALMorphology Walter (Bld) [Interp]MICROCYTOSIS PRESENTWELLMONT LONESOME PINE [facility]. VIEW HOSPITALMorphology Walter (Bld) [Interp]ANISOCYTOSIS PRESENTWELLMONT LONESOME PINE MT. VIEW HOSPITALMorphology Walter (Bld) [Interp]1+ ACANTHOCYTESWELLMONT L[facility]OME [facility] Platelet distribution width (Bld) [Ratio]18.9 %High11.8 - 14.4 %[facility] HOSPITALPlatelet mean volume (Bld) [Entitic vol]12.6 fL8.1 [...] of laboratory resultsAbnormalBON [facility]CY HEALTHB[facility] HEALTH Interpretation and review of laboratory [...] MERCY HEALTHAbsolute Lymph #0.88LowBON [facility] HEALTHAbsolute Tillman #1.33HighBON SEC[facility]OST[facility]ITALY HEALTHInterpretation and review of laboratory resultsAbnormalBON [facility]ITALY HEALTHNRBC Automated0.00.0 per 100 WBCBON SECOURS MERCY HEALTHSegs Bewunkzc45.89 HighBON SECOURS MERCY HEALTHBON [facility] HEALTHGFR >60>60 mL/minBON [facility]CY HEALTHGFR Non->60>60 mL/minBON [facility]CY HEALTHInterpretation and review of laboratory resultsAbnormalBON [facility] HEALTHB[facility] HEALTHInterpretation and review of laboratory resultsAbnormalBON [facility] HEALTHB[facility]ITALY HEALTHInterpretation and review of laboratory resultsAbnormalBON [facility] HEALTHB[facility] HEALTHGFR >60>60 mL/minBON [facility]CY HEALTHGFR Non- >60>60 mL/minBON [facility]CY HEALTHInterpretation and review of laboratory resultsAbnormalBON SEC[facility]OS[facility]ITALY HEALTHB[facility] HEALTH Interpretation and review of laboratory resultsAbnormalBON [facility] HEALTH [facility] HEALTHPhosphorus, Inorg.on [id number], Inorg.3.3 mg/dLNormal2.5-4.5[facility] HospitalComment on above:Performed By: #### CDP, MELVIN, BMPX, IPF #### [employer] [address] [place] [address] Cold Type Artist: DENISE Brandonhosphorus, Inorg.2.9 mg/dLNormal2.5-4.5[facility] HospitalComment on above:Performed By: #### CDP #### [facility] [address] [place], [place] [id number] Cold Type Artist: DENISE Brandonhosphorus, Inorg.3.5 mg/dLNormal2.5-4.5[facility] HospitalComment on above:Performed By: #### CDP, MELVIN, BMPX, IPF #### [facility] [address] [place] [id number] Cold Type Artist: Eliane Brandonsphokhari, Inorg.3.1 mg/dLNormal2.5-4.5[facility] HospitalComment on above:Performed By: #### CDP, MELVIN, BMPX, IPF #### [facility] [address] [place] [address] Cold Type Artist: Eliane Brandonsphostephs, Inorg.2.5 mg/dLNormal2.5-4.5[facility] HospitalComment on above:Performed By: #### CDP, MELVIN, BMPX, IPF #### [facility] [address] [place], [place] [address] Cold Type Artist: GAGE BrandonR ABDOMEN FOR NG/OG/NE TUBE PLACEMENTon [id number] ABDOMEN FOR NG/OG/NE TUBE PLACEMENTEXAMINATION: ONE SUPINE [...] Signed by: Eulogio Winslow MD 01/02/22 Final resultNormalAvita Health System Bucyrus HospitalAMYLASEon [id number] [Catalytic activity/Vol]13 U/LCritically ywh22-389NwuMercy Health St. Charles HospitalComment on above:Performed By: #### LIPA, MARGA, LIVER, BMP #### [facility] [address] [place], [place] [address] Dr. Kylee Christiansen Metabolic Profon [id number] [Mass/Vol]452 mg/dL Critically frec13-37Cheeu Tschet[facility] Colony Medical CenterComment on above:Performed By: #### CDP #### [facility] CampusOn[facility] [address] [place] [address] Cold Type Artist: Francisco J Fonseca MD(cont.)[facility] Comment on above:Result Comment: Average GFR for 70 or more years old: 75 mL/min/1.73sq m Chronic Kidney Disease: <60 mL/min/1.73sq m Kidney failure: <15 mL/min/1.73sq m eGFR calculated using average adult body mass. Additional eGFR calculator available at: http://www.KeriCure/multiple_crcl_2012.htmPerformed By: #### CDP #### [facility] [address] [place] [address] Cold Type Artist: Francisco J Fonseca MDAnion gap [Moles/Vol]12 mmol/LNormal9-17[facility] HospitalComment on above:Performed By: #### CDP #### [facility] [address] [place] [address] Cold Type Artist: Francisco J Fonseca MDCalcium [Mass/Vol]8.6 mg/dLNormal8.6-10.4[facility] HospitalComment on above:Performed By: #### CDP #### [facility] [address] [place] [address] Cold Type Artist: Francisco J Fonseca MDChloride [Moles/Vol]96 mmol/IMgo83-190StmpgAvita Health System Bucyrus HospitalComment on above:Performed By: #### CDP #### [facility] [address] [place] [address] Cold Type Artist: Francisco J Fonseca MDCO2 [Moles/Vol]22 mmol/JScptkr87-85TgqurAvita Health System Bucyrus HospitalComment on above:Performed By: #### CDP #### [facility] [address] [place] [address] Cold Type Artist: MARLENY Brandonreatinine [Mass/Vol]0.81 mg/dLNormal0.70-1.20 [facility] HospitalComment on above:Performed By: #### CDP #### [address] [address] Cold Type Artist: Francisco J Fonseca MDGFR, Amer>60Normal>60MerKindred HospitalComment on above:Performed By: #### CDP #### [address] [address] Cold Type Artist: ARTURO Brandon,non Amer>60Normal>60[facility] HospitalComment on above:Performed By: #### CDP #### [address] [address] Cold Type Artist: DENISE Brandonotassium [Moles/Vol]4.1 mmol/LNormal3.7-5.3 [facility] HospitalComment on above:Performed By: #### CDP #### [address] [address] Cold Type Artist: MEIR Brandonodium [Moles/Vol]130 mmol/LIsw866-368QwuwaAvita Health System Bucyrus HospitalComment on above:Performed By: #### CDP #### [address] [address] Cold Type Artist: Francisco J Fonseca MDUrea nitrogen [Mass/Vol]19 mg/dLNormal8-23[facility] HospitalComment on above:Performed By: #### CDP #### [address] [address] Cold Type Artist: MARLENY BrandonBC AUTO DIFFon [id number] #0.0 103/ulNormal 0.0-0.1[facility] Charles HospitalComment on above:Performed By: #### CMP, LIPID #### [facility] [address] [place] [address] Dr. Kylee BunchBasophils/100 WBC (Bld)0.2 %Normal0.2-2.0[facility] Comment on above:Performed By: #### CMP, LIPID #### [facility] [address] [place] [address] Dr. Kylee Del Castillo #0.1 103/ulNormal0.0-0.7[facility] HospitalComment on above: Performed By: #### CMP, LIPID #### [facility] [address] [place] [address] Dr. Kylee Steinbergosinophils/100 WBC (Bld)0.5 %Critically low0.9-7.0[facility] HospitalComment on above:Performed By: #### CMP, LIPID #### [facility] [address] [place] [address] Dr. Kylee Steinbergrythrocyte distribution width (RBC) [Ratio]18.5 %Critically high 11.0-15.0[facility] HospitalComment on above:Performed By: #### CMP, LIPID #### [facility] [address] [place] [address] Dr. Kylee BunchHematocrit (Bld) [Volume fraction]37.0 %Critically low42.0-54.0 [facility] HospitalComment on above:Performed By: #### CMP, LIPID #### [facility] [address] [place] [address] Dr. Kylee BunchHemoglobin (Bld) [Mass/Vol]12.6 g/dLCritically low14.0-18.0The [facility] HospitalComment on above:Performed By: #### CMP, LIPID #### [facility] [address] [place] [address] Dr. Kylee Mckoy #0.02 10e3/ulNormal0.00-0.03The [facility] HospitalComment on above:Performed By: #### CMP, LIPID #### [facility] [address] [place] [address] Dr. Kylee Mckoy %0.2 %Normal0.0-0.5The [facility] HospitalComment on above: Performed By: #### CMP, LIPID #### [facility] [address] [place] [address] Dr. Kylee Jones #1.2 103/ulNormal1.2-3.8The [facility] HospitalComment on above:Performed By: #### CMP, LIPID #### [facility] [address] [place] [address] Dr. Kylee Casashocytes/100 WBC (Bld)11.3 %Critically low20.5-60.0The [facility] HospitalComment on above:Performed By: #### CMP, LIPID #### [facility] [address] [place] [address] Dr. Kylee BauerUAL DIFF REQNONormalThe [facility] HospitalComment on above: Performed By: #### CMP, LIPID #### [facility] [address] [place] [address] Dr. Kylee Besaley (RBC) [Entitic mass]27.1 peTjtbwc68.9-34.0The [facility] HospitalComment on above:Performed By: #### CMP, LIPID #### [facility] [address] [place] [address] Dr. Kylee Beasley (RBC) [Mass/Vol]34.1 g/qDEvlman01.9-35.2The [facility] HospitalComment on above:Performed By: #### CMP, LIPID #### [facility] [address] [place] [address] Dr. Kylee Beasley (RBC) [Entitic vol]79.6 fLCritically low80.0-94.0The [facility] HospitalComment on above:Performed By: #### CMP, LIPID #### [facility] [address] [place] [address] Dr. Kylee Abarca #0.5 103/ulNormal0.3-0.8The [place] [facility] HospitalComment on above:Performed By: #### CMP, LIPID #### [facility] [address] [address] [address] Kylee Mirelesocytes/100 WBC (Bld)4.5 %Normal1.7-12.0[facility] Comment on above:Performed By: #### CMP, LIPID #### [facility] [address] [place] [address] Dr. Kylee Shook #8.5 103/ulCritically high1.4-6.5[facility] Comment on above:Performed By: #### CMP, LIPID #### [facility] [address] [place] [address] Dr. Kylee Martinutrophils/100 WBC (Bld)83.3 %Critically high43.0-75.0The [facility] HospitalComment on above:Performed By: #### CMP, LIPID #### [facility] [address] [place] [address] Dr. Kylee BunchPlatelet mean volume (Bld) [Entitic vol]12.6 fLNormal9.5-13.5The [facility] HospitalComment on above:Performed By: #### CMP, LIPID #### [facility] [address] [place] [address] Dr. Kylee BunchPLT335 103/nuFwkslh996-081Bol [facility] HospitalComment on above: Performed By: #### CMP, LIPID #### [facility] [address] [place] [address] Dr. Kylee BunchRBC4.65 106/ulCritically low4.70-6.10The [facility] HospitalComment on above:Performed By: #### CMP, LIPID #### [facility] [address] [place] [address] Dr. Kylee BunchWBC10.2 103/ulNormal4.0-11.0The [facility] HospitalComment on above:Performed By: #### CMP, LIPID #### [facility] [address] [place] [address] Dr. Kylee Locke with Diffon [id number]. Basophil0.00 k/uLNormal0.00-0.20 [facility] HospitalComment on above:Performed By: #### CDP, MELVIN, BMPX, IPF #### [place] [address] Cold Type Artist: MDAbs. RomaImm.Granulocyte0.00 k/uLNormal0.00-0.30[facility] HospitalComment on above:Performed By: #### CDP, MELVIN, BMPX, IPF #### [place] [address] Cold Type Artist: Vidhya Brandon.Neutrophil (Seg)19.47 k/uLHigh1.50-8.10[facility] HospitalComment on above:Performed By: #### CDP, MELVIN, BMPX, IPF #### [place] [address] Cold Type Artist: Francisco J Fonseca MDBasophils/100 WBC (Bld)0 %Normal0-2MWhittier Hospital Medical CenterComment on above:Performed By: #### CDP, MELVIN, BMPX, IPF #### [place] [address] Cold Type Artist: Francisco J Fonseca MDEosinophils (Bld) [#/Vol]0.00 10*3/uLNormal 0.00-0.44[facility] HospitalComment on above:Performed By: #### CDP, MELVIN, BMPX, IPF #### [address] [address] Cold Type Artist: Francisco J Fonseca MDEosinophils/100 WBC (Bld)0 %Low1-4[facility] HospitalComment on above:Performed By: #### CDP, MELVIN, BMPX, IPF #### [address] [address] Cold Type Artist: Mark Brandonture granulocytes/100 WBC (Bld)0 %Normal0 [facility] HospitalComment on above:Performed By: #### CDP, MELVIN, BMPX, IPF #### [facility] [address] [place] [address] Cold Type Artist: Francisco J Fonseca MDLymphocytes (Bld) [#/Vol]0.41 10*3/uLLow 1.10-3.70[facility] HospitalComment on above:Performed By: #### CDP, MELVIN, BMPX, IPF #### [facility] [address] [place] [address] Cold Type Artist: Jeremie Brandonmphocytes/100 WBC (Bld)2 %Uzh60-80EnhmtAvita Health System Bucyrus HospitalComment on above:Performed By: #### CDP, MELVIN, BMPX, IPF #### [address] [address] Cold Type Artist: MARK Brandononocytes (Bld) [#/Vol]0.62 10*3/uLNormal 0.10-1.20[facility] HospitalComment on above:Performed By: #### CDP, MELVIN, BMPX, IPF #### [facility] [address] [place] [address] Cold Type Artist: MARK Brandononocytes/100 WBC (Bld)3 %Normal3-12[facility] HospitalComment on above:Performed By: #### CDP, MELVIN, BMPX, IPF #### [facility] [address] [place] [address] Cold Type Artist: MARK Brandonorphology Walter (Bld) [Interp]ANISOCYTOSIS PRESENTNormalAvita Health System Bucyrus HospitalComment on above:Performed By: #### CDP, MELVIN, BMPX, IPF #### [facility]OTE[facility] [address] [place] [address] Cold Type Artist: Francisco J Madoff, MDNeutrophil (Seg)95 %Pcyp72-61OvekhAvita Health System Bucyrus HospitalComment on above:Performed By: #### CDP, MELVIN, BMPX, IPF #### [facility]OTE[facility] [address] [place] [address] Cold Type Artist: Francisco J Fonseca MDErythrocyte distribution width (RBC) [Ratio]18.3 %High11.8-14.4[facility] HospitalComment on above:Performed By: #### CDP, MELVIN, BMPX, IPF #### [facility]OTEIN [facility] [address] [place] [address] Cold Type Artist: Francisco J Fonseca MDHematocrit (Bld) [Volume fraction]38.9 %Low 40.7-50.3MWhittier Hospital Medical CenterComment on above:Performed By: #### CDP, MELVIN, BMPX, IPF #### [facility] [address] [place] [address] Cold Type Artist: Francisco J Fonseca MDHemoglobin (Bld) [Mass/Vol]12.9 g/dLLow13.0-17.0 [facility] HospitalComment on above:Performed By: #### CDP, MELVIN, BMPX, IPF #### [facility] [address] [place] [address] Cold Type Artist: MARK BrandonCH (RBC) [Entitic mass]26.9 lzUyhadd33.2-33.5 [facility] HospitalComment on above:Performed By: #### CDP, MELVIN, BMPX, IPF #### [facility] [address] [place] [address] Cold Type Artist: MARK BrandonCHC (RBC) [Mass/Vol]33.2 g/rVXjgwar74.4-34.8 [facility] HospitalComment on above:Performed By: #### CDP, MELVIN, BMPX, IPF #### [facility] [address] [place] [address] Cold Type Artist: MARK BrandonCV (RBC) [Entitic vol]81.2 fLLow82.6-102.9[facility] HospitalComment on above:Performed By: #### CDP, MELVIN, BMPX, IPF #### [address] [address] Cold Type Artist: SONIA Brandon Automated0.0 per 100 WBCNormal0.0[facility] HospitalComment on above:Performed By: #### CDP, MELVIN, BMPX, IPF #### [address] [address] Cold Type Artist: Meera Brandon mean volume (Bld) [Entitic vol]12.4 fL Normal8.1-13.5[facility] HospitalComment on above:Performed By: #### CDP, MELVIN, BMPX, IPF #### [facility] [address] [place] [address] Cold Type Artist: Cade Brandon (Bld) [#/Vol]324 10*3/yLKzrdxk382-317 [facility] HospitalComment on above:Performed By: #### CDP, MELVIN, BMPX, IPF #### [facility] [address] [place] [address] Cold Type Artist: YOLA Brandon (Bld) [#/Vol]4.79 10*6/uLNormal4.21-5.77 [facility] HospitalComment on above:Performed By: #### CDP, MELVIN, BMPX, IPF #### [facility] [address] [place] [address] Cold Type Artist: PABLO Brandon (Bld) [#/Vol]20.5 10*3/uLHigh3.5-11.3MWhittier Hospital Medical CenterComment on above:Performed By: #### CDP, MELVIN, BMPX, IPF #### [employer] [address] [place] [address] Cold Type Artist: Francisco J Fonseca, MDCT ABD/PELV W CONon [id number] ABD/PELV W CON EXAMINATION: CT ABD/PELV W [...] identified. Background diffuse body wall edema with yefzw-dw-tmsybxuq volume of abdominal and pelvic ascites noted. [...] 9:09 AM on 01/02/2022. Electronically authenticated by: TrelloH Date: 2022-01-02 09:27[facility] HospitalCovid-19 PCR (CVDTB)on [id number]-CoV-2 (COVID-19) RNA ANASTASIA+probe Ql (Unsp spec)Not detectedNormalNOT DETECTEDThe [facility] Comment on above:Result Comment: When diagnostic testing [...] for this test is supported by the [place] of Health and Human Service's declaration that [...] longer be used).Performed By: #### CVDTBH #### [facility] [address] [place] [address] Dr. Kylee Forbes URINE PROFILEon [id number] Ql (U)NegativeNormal NEGATIVEMercy Health St. Charles HospitalComment on above:Performed By: #### CMP, LIPID #### [facility] [address] [place] [address] Dr. Kylee Bricenoarity (U)CLEARNormalCLEARMercy Health St. Charles HospitalComment on above: Performed By: #### CMP, LIPID #### [facility] [address] [place] [address] Dr. Kylee De La Garza (U)LT. YELLOWNormalYELLOWMercy Health St. Charles HospitalComment on above:Performed By: #### CMP, LIPID #### [facility] [address] [place] [address] Dr. Kylee Moe micrscopic examination will be performed if indicated. NormalMercy Health St. Charles HospitalComment on above:Performed By: #### CMP, LIPID #### [facility] [address] [place] [address] Dr. Kylee BunchHemoglobin Ql (U)TRACE-INTACTAbnormalNEGATIVEMercy Health St. Charles HospitalComment on above:Performed By: #### CMP, LIPID #### [facility] [address] [place] [address] Dr. Kylee BunchKetones Ql (U)15 mg/dlAbnormalNEGATIVEThe [facility] Comment on above:Performed By: #### CMP, LIPID #### [facility] [address] [address] [address] Kylee BunchLEUKOCYTESNegativeNormalNEGATIVEThe [facility] HospitalComment on above:Performed By: #### CMP, LIPID #### [facility] [address] [address] [address] Kylee Royaltrite Ql (U)NegativeNormalNEGATIVEThe [facility] HospitalComment on above:Performed By: #### CMP, LIPID #### [facility] [address] [address] [address] Kylee BunchpH (U)5.5 [pH]Normal5-9The [facility] HospitalComment on above: Performed By: #### CMP, LIPID #### [facility] [address] [place] [address] Dr. Kylee BunchSPEC GRAVITY1.957Urigqw9.005-<=1.025The [facility] HospitalComment on above:Performed By: #### CMP, LIPID #### [facility] [address] [place] [address] Dr. Kylee Rodas PROTEINNegativeNormalNEGATIVE/ TRACEThe [facility] Comment on above:Performed By: #### CMP, LIPID #### [facility] [address] [place] [address] Dr. Kylee Mae MICRO INDINDICATEDNormalThe [facility] HospitalComment on above: Performed By: #### CMP, LIPID #### [facility] [address] [place] [address] Dr. Kylee Correiabilinogen Qn (U)0.2 {Gemini'U}/dLNormal0.2 - 1.0The [facility] HospitalComment on above:Performed By: #### CMP, LIPID #### [facility] [address] [place] [address] Dr. Kylee JhaASEon [id number] [Catalytic activity/Vol]9.0 U/L Critically low73.0-393.0The [facility] HospitalComment on above:Performed By: #### LIPA, MARGA, LIVER, BMP #### [facility] [address] [place] [address] Dr. Kylee Narayan PROFILEon [id number] [Mass/Vol]3.3 g/dLCritically low3.4-5.0The [facility] HospitalComment on above:Performed By: #### LIPA, MARGA, LIVER, BMP #### [facility] [address] [place] [address] Dr. Kylee BunchAlbumin/Globulin [Mass ratio]0.9 {ratio}NormalThe [facility] HospitalComment on above:Performed By: #### LIPA, MARGA, LIVER, BMP #### [facility] [address] [place] [address] Dr. Kylee Forman [Catalytic activity/Vol]116 U/JXrbhex26-910Trk [facility] HospitalComment on above:Performed By: #### LIPA, MARGA, LIVER, BMP #### [facility] [address] [place] [address] Dr. Kylee Shelton [Catalytic activity/Vol]21 U/SNlcoug97-16Umb [facility] HospitalComment on above:Performed By: #### LIPA, MARGA, LIVER, BMP #### [facility] [address] [place] [address] Dr. Kylee Mccormack [Catalytic activity/Vol]24 U/NVnrnie57-09Cfk [facility] on above:Performed By: #### LIPA, MARGA, LIVER, BMP #### [facility] [address] [place] [address] Dr. Kylee Calhoun, CONJUGATED0.1 mg/dLNormal0.0-0.2The [facility] Comment on above:Performed By: #### LIPA, MARGA, LIVER, BMP #### [facility] [address] [place] [address] Dr. Kylee Santoirubin [Mass/Vol]0.6 mg/dLNormal0.2-1.0The [facility] Comment on above:Performed By: #### LIPA, MARGA, LIVER, BMP #### [facility] [address] [place], [place] [address] Dr. Kylee BunchGlobulin (S) [Mass/Vol]3.6 g/dLNormalThe [facility] HospitalComment on above:Performed By: #### LIPA, MARGA, LIVER, BMP #### [facility] [address] [place], [place] [address] Dr. Kylee BunchProtein [Mass/Vol]6.9 g/dLNormal6.4-8.2The [facility] Comment on above:Performed By: #### LIPA, MARGA, LIVER, BMP #### [facility] [address] [place], [place] [address] Dr. Kylee BunchLaboratory - Chemistry and Chemistry - challengeon 01-02-2022 Glucose [Mass/Vol]223 mg/dLBON [facility] HOSPITALComment on above:The ADA and AACC recommend providing the estimated average glucose result to permit better patient understanding of their HBA1c result. Glucose [Mass/Vol]227 mg/tUDvdo50 - 110 mg/dLBON [facility] HEALTHGlucose [Mass/Vol]290 mg/wEUxna44 - 110 mg/dLBON [facility] HEALTHGlucose [Mass/Vol] 300 mg/vDStez53 - 110 mg/dLBON [facility] HEALTHGlucose [Mass/Vol]323 mg/dL High75 - 110 mg/dLBON SECMERCY HEALTHAnion gap [Moles/Vol]12 mmol/L9 - 17 mmol/LBON [facility] HEALTHCalcium [Mass/Vol]8.6 mg/dL8.6 - 10.4 mg/dLBON [facility] HEALTHChloride [Moles/Vol]96 mmol/LLow98 - 107 mmol/LBON [facility] HEALTHCO2 [Moles/Vol]22 mmol/L20 - 31 mmol/LBON [facility] Creatinine [Mass/Vol]0.81 mg/dL0.70 - 1.20 mg/dLBON SECNEW [facility]Y HEALTHGFR/1.73 sq M.predicted MDRD (S/P/Bld) [Vol rate/Area]BON [facility] HOSPITALComment on above:Average GFR for 70 or more years old: 75 mL/min/1.73sq m Chronic Kidney Disease: <60 mL/min/1.73sq m Kidney failure: <15 mL/min/1.73sq m eGFR calculated using average adult body mass. Additional eGFR calculator available at: http://www.[employer]eri[employer]ure/multiple_crcl_2012.htm Glucose [Mass/Vol]452 mg/dLCritically high70 - 99 mg/dLBON [facility] Potassium [Moles/Vol]4.1 mmol/L3.7 - 5.3 mmol/LBON [facility] COMMUNITY HOSPITALSodium [Moles/Vol]130 mmol/LBqy540 - 144 mmol/LBON [facility] COMMUN[facility] HOSPITALUrea nitrogen (BldV) [Mass/Vol]19 mg/dL8 - 23 mg/dLBON [facility] HOSPITALAlbumin [Mass/Vol] 3.6 g/dL3.5 - 5.2 g/dLBON [facility] HOSPITALAlbumin/Globulin [Mass ratio]1.3 {ratio}BON [facility]OST[facility] COMMUNITY HOSPITALALP (Bld) [Catalytic activity/Vol]100 U/L40 - 129 U/LBON [facility] HOSPITALALT [Catalytic activity/Vol]15 U/L5 - 41 U/LBON [facility] COMM[facility] HOSPITALAST [Catalytic activity/Vol]18 U/L<40BON [facility] HOSPITALBilirubin [Mass/Vol]0.45 mg/dL0.3 - 1.2 mg/dLBON [facility] Bilirubin.indirect [Mass/Vol]0.17 mg/dL<0.31BON [facility] HOSPITALFree PSA/Total PSA [Mass fraction]6.4 g/dL6.4 - 8.3 g/dLBON [facility] Glucose [Mass/Vol]433 mg/dLCritically high75 - 110 mg/dLBON [facility] Comment on above:Critical NotedLaboratory - Coagulationon [id number] Coag (Bld) [Relative time]1.2 {INR}[facility] HOSPITALComment on above: Therapeutic Range: Moderate Anticoagulant Intensity: INR = 2.0-3.0 High Anticoagulant Intensity: INR = 2.5-3.5 PT Coag (PPP) [Time]12.5 sHighBON [facility]OST[facility] COMMUN[facility] HOSPITALLaboratory - Hematology and Cell countson 13-00-7402OhX8z (Bld) [Mass fraction]9.4 %High4.0 - 6.0 %B[facility] HEALTHBasophils (Bld) [#/Vol]0.00 10*3/uLBON [facility] Basophils/100 WBC (Bld)0 %0 - 2 %BON SECMER[facility] HEALTHEosinophils/100 WBC (Bld)0 %Low1 - 4 %B[facility]MER[facility] HEALTHHematocrit (Bld) [Volume fraction]38.9 %Low40.7 - 50.3 %BON [facility] HOSPITALHemoglobin (Bld) [Mass/Vol]12.9 g/dLLow 13.0 - 17.0 g/dLBON SECMERCY HEALTHImmature granulocytes/100 WBC (Bld)0 %0 [facility] MEDICAL CENTERLymphocytes/100 WBC (Bld)2 %Low24 - 43 %[facility]OSPITALH (RBC) [Entitic mass]26.9 pg25.2 - 33.5 pgBON SECGUERNSEY MEMORIAL HOSPITALHC (RBC) [Mass/Vol]33.2 g/dL28.4 - 34.8 g/dLBON SECGUERNSEY MEMORIAL HOSPITALV (RBC) [Entitic vol]81.2 fLLow82.6 - 102.9 fLWELLMONT [facility] Monocytes/100 WBC (Bld)3 %3 - 12 %BON [facility] COMM[facility] HOSPITALMorphology Walter (Bld) [Interp]ANISOCYTOSIS PRESENTBON [facility] HEALTHPlatelet distribution width (Bld) [Ratio]18.3 %High11.8 - 14.4 %[facility] HEALTHPlatelet mean volume (Bld) [Entitic vol]12.4 fL8.1 - 13.5 fLBON [facility]KE[facility] HEALTHPlatelets (Bld) [#/Vol]324 10*3/uLBON [facility] HEALTHRBC (Bld) [#/Vol]4.79 10*6/uL4.21 - 5.77 m/uLBON SECMERCY HEALTHSegmented neutrophils/100 WBC (Bld)95 %High36 - 65 %B[facility]MERCY HEALTHWBC (Bld) [#/Vol]20.5 10*3/uLHighBON [facility] MEDICAL CENTERLactate, Sepsison 88-86-6182Oydigr Acid,Sep Wbld1.7 mmol/LNormal0.5-1.9 [facility] HospitalComment on above:Performed By: #### CDP, MELVIN, BMPX, IPF #### [facility] [place] [address] Cold Type Artist: Beatrice Brandon Profileon 75-51-5589Ycspwhw [Mass/Vol]3.6 g/dLNormal3.5-5.2MWhittier Hospital Medical CenterComment on above:Performed By: #### CDP #### [address] [address] Cold Type Artist: Francisco J Fonseca MDAlbumin/Glob Ratio1.1Bkxfex8.0-2.5[facility] HospitalComment on above:Performed By: #### CDP #### [facility]OTE[facility] [address] [place] [address] Cold Type Artist: Angie Brandon Ndku362 U/COppagh24-146ConqjAvita Health System Bucyrus HospitalComment on above:Performed By: #### CDP #### [facility] PROTEIN [facility]OUN[facility] [address] [place] [address] Cold Type Artist: FranciscoJ Fonseca MDALT [Catalytic activity/Vol]15 U/LNormal5-41 [facility] HospitalComment on above:Performed By: #### CDP #### [facility] [address] [place] [address] Cold Type Artist: Francisco J Fonseca MDAST [Catalytic activity/Vol]18 U/LNormal<40[facility] HospitalComment on above:Performed By: #### CDP #### [facility] [address] [place] [address] Cold Type Artist: Francisco J Fonseca MDBilirubin [Mass/Vol]0.45 mg/dLNormal0.3-1.2Mwvumedicine barnesville hospitaly Orthopaedic HospitalComment on above:Performed By: #### CDP #### [facility] [address] [place] [address] Cold Type Artist: Francisco J Fonseca MDBilirubin, Indirect0.28 mg/dLNormal0.00-1.00 [facility] HospitalComment on above:Performed By: #### CDP #### [facility]OUN[facility] [address] [place] [address] Cold Type Artist: Krishna Brandonirubin.indirect [Mass/Vol]0.17 mg/dLNormal <0.31[facility] HospitalComment on above:Performed By: #### CDP #### [address] [address] Cold Type Artist: Francisco J Fonseca MDProtein [Mass/Vol]6.4 g/dLNormal6.4-8.3MWhittier Hospital Medical CenterComment on above:Performed By: #### CDP #### [address] [address] Cold Type Artist: Francisco J Fonseca MDNo Panel Informationon [id number] and review of laboratory resultsAbnormalSTAFFORD HOSPITALInterpretation and review of laboratory resultsAbnormalSTAFFORD HOSPITALEnteric tube needs to be advanced 10 cm. [facility] RIS CONSOLIDATEDEXAMINATION: ONE SUPINE [...] tube needs to be advanced 10 cm. [employer] Work Phone: Interpretation and review of laboratory results AbnormalBON SANF[facility]STER MEDICAL CENTERInterpretation and review of laboratory resultsAbnormalSTAFFORD HOSPITALRadiology Study observation (narrative)[employer] Work Phone: absolute Eos #0.00[facility] CENTERAbsolute Immature Granulocyte0.00[facility] HEALTHAbsolute Lymph #0.41LowBON [facility] HEALTHAbsolute Tillman #0.62BON SECSolarus [facility] HEALTHInterpretation and review of laboratory resultsAbnormWinchester Medical CenterNRBC Automated 0.00.0 per 100 WBCBON Select [facility] Hospital [facility] Cincinnatigs Ivsucsiz55.47HighBON SECVETER[facility] HEALTHInterpretation and review of laboratory resultsAbnormalBON [facility] HEALTHInterpretation and review of laboratory resultsAbnormalSTAFFORD HOSPITALLactic Acid, Sepsis, Whole Blood1.7 mmol/L0.5 - 1.9 mmol/LBON SECVETERAN'[facility] HEALTHGFR >60>60 mL/minJOHNSTON MEMORIAL [facility] HEALTHGFR Non->60>60 mL/minHUNT MEMORIAL HOSPITALSolarus [facility]PITALY HEALTHInterpretation and review of laboratory resultsAbnormalBON [facility] HEALTHBilirubin, Indirect0.28 mg/dL0.00 - 1.00 mg/dLBON [facility] MEDICAL CENTERInterpretation and review of laboratory resultsAbnormalBON [facility]ICAL CENTERNo Panel InformationOrdered By: Eulogio Winslow on [id number] [facility] Work Phone: POINT OF CARE GLUCOSEon 18-02-5552Jfowvby [Mass/Vol] 408 mg/dLCritically bftc02-281Rui [facility] HospitalComment on above:Performed By: #### POCGLUC #### [facility] [address] [place] [address] Dr. Kylee BunchPROF CHEM 8 (BAS METB)on [id number] gap [Moles/Vol]16.4 mmol/LNormalThe [facility] HospitalComment on above:Performed By: #### LIPA, MARGA, LIVER, BMP #### [facility] [address] [address] [address] Kylee BunchCalcium [Mass/Vol]8.8 mg/dLNormal8.5-10.1[facility] Comment on above:Performed By: #### LIPA, MARGA, LIVER, BMP #### [facility] [address] [address] [address] Kylee BunchChloride [Moles/Vol]96 mmol/LCritically mgo56-141Njv [facility] HospitalComment on above:Performed By: #### LIPA, MARGA, LIVER, BMP #### [facility] [address] [address] [address] Kylee BunchCO2 [Moles/Vol]25.1 mmol/GOmstza63.0-32.0[facility] Comment on above:Performed By: #### LIPA, MARGA, LIVER, BMP #### [facility] [address] [place] [address] Dr. Kylee BunchCreatinine [Mass/Vol]1.22 mg/dLNormal0.70-1.30The [facility] HospitalComment on above:Performed By: #### LIPA, MARGA, LIVER, BMP #### [facility] [address] [address] [address] Pichardo ChangEGFR-AF ST LUCIAN>60Normal>=60The [facility] HospitalComment on above:Performed By: #### LIPA, MARGA, LIVER, BMP #### [facility] [address] [address] [address] Kylee SteinbergGFR-NON AF QXAKHTYR04 mL/min/1.52j5Khmjzqqcuk low>=60The [facility] HospitalComment on above:Performed By: #### LIPA, MARGA, LIVER, BMP #### [facility] [address] [address] [address] Kylee BunchGlucose [Mass/Vol]579 mg/dLCritically gzsi95-052Osi [facility] HospitalComment on above:Result Comment: repeatedPerformed By: #### LIPA, MARGA, LIVER, BMP #### [facility] [address] [place] [address] Dr. Kylee BunchPotassium [Moles/Vol]4.5 mmol/LNormal3.5-5.1[facility] Comment on above:Performed By: #### LIPA, MARGA, LIVER, BMP #### [facility] [address] [address] [address] Kylee BunchSodium [Moles/Vol]133 mmol/LCritically xak209-616Diw [facility] HospitalComment on above:Performed By: #### LIPA, MARGA, LIVER, BMP #### [facility] [address] [address] [address] Kylee BunchUrea nitrogen [Mass/Vol]19.0 mg/dLCritically high7.0-18.0The [facility] HospitalComment on above:Performed By: #### LIPA, MARGA, LIVER, BMP #### [facility] [address] [place] [address] Dr. Kylee Saenz nitrogen/Creatinine [Mass ratio]15.6 mg/mgNormalThe [facility] HospitalComment on above:Performed By: #### LIPA, MARGA, LIVER, BMP #### [facility] [address] [place] [address] Dr. Kylee Hernández [phone] Coag (PPP) [Relative time]1.2 {INR}NormalMercy Orthopaedic HospitalComment on above:Result Comment: Therapeutic Range: Moderate Anticoagulant Intensity: INR = 2.0-3.0 High Anticoagulant Intensity: INR = 2.5-3.5Performed By: #### CDP, MELVIN, BMPX, IPF #### [facility] [address] [place] [address] [id number] Cold Type Artist: SABINA Brandon Coag (PPP) [Time]12.5 sHigh9.1-12.3[facility]opaedic HospitalComment on above:Performed By: #### CDP, MELVIN, BMPX, IPF #### [facility] [address] [place] [address] [id number] Cold Type Artist: ANNALISE Brandon MICROSCOPIC ONLYon [id number] SEENNormalNONE SEENMercy Health St. Charles HospitalComment on above:Performed By: #### CMP, LIPID #### [facility] [address] [place] [address] Dr. Kylee Devlin identified Cx Nom (U)NOT INDICATEDNoFlower HospitalCommunson healthcare [facility] on above:Performed By: #### CMP, LIPID #### [facility] [address] [place] [address] Dr. Kylee Perry SEENNormalNONE SEENMercy Health St. Charles HospitalComment on above:Performed By: #### CMP, LIPID #### [facility] [address] [address] [address] Kylee Montaño LM Nom (Urine sed)NONE SEENNormalNONE SEENMercy Health St. Charles HospitalCommunson healthcare [facility] on above:Performed By: #### CMP, LIPID #### [facility] [address] [place] [address] Dr. Kylee Villarrealthelial cells LM Ql (Urine sed)RARENormalNONE SEEN /RAREMercy Health St. Charles HospitalComment on above:Performed By: #### CMP, LIPID #### [facility] [address] [address] [address] Kylee BunchMUCOUSNONOdalys SEENNormalNONE SEENMercy Health St. Charles HospitalComment on above:Performed By: #### CMP, LIPID #### [facility] [address] [address] [address] Kylee BunchIyiybIQT7-1Wcrxrx9-5Eko [facility] HospitalComment on above:Performed By: #### CMP, LIPID #### [facility] [address] [address] [address] Kylee BunchWBCNONE SEENNormalNONE SEENThe [facility] HospitalComment on above: Performed By: #### CMP, LIPID #### [facility] [address] [address] [address] Kylee Bunch Vital Signs Date TimeVital SignValuePerforming DqfbhzvkgFdxwnqyw66-46-0569 10:42-0400Body .34 cmRobert Vaschak DO Work Phone: [facility]10-29-2025 10:24-0400 Body mass index (BMI) [Ratio]18.9 kg/v4Hkktct Vaschak DO Work Phone: [facility]10-29-2025 10:24-0400 Body dctivt40.68 kgRobert Vaschak DO Work Phone: [facility]10-29-2025 10:24-0400 Diastolic blood lurpxufi74 mm[Hg]Marie Vaschak DO Work Phone: [facility]10-29-2025 10:24-0400 Respiratory rate18 /minRobert Vaschak DO Work Phone: [facility]10-29-2025 10:24-0400 Systolic blood hpitioii257 mm[Hg]Marie Vaschak DO Work Phone: [facility]10-22-2025 09:45-0400 Body mass index (BMI) [Ratio]20.09 kg/m2Amy Warchol ETCHER APPRENTICE Work Phone: [facility] HospitalBkosokugek37-14-7227 09:45-0400Body .5 kg Marga Robledo ETCHER APPRENTICE Work Phone: [facility] HospitalZywtxbwzpw84-85-3318 09:45-0400Diastolic blood tjfgraim94 mm[Hg]Marga Robledo ETCHER APPRENTICE Work Phone: [facility] HospitalYauedrusgb16-19-3165 09:45-0400Heart rate61 /min Marga Davischol ETCHER APPRENTICE Work Phone: [facility] HospitalJecxamimyb44-74-7498 09:45-4266GkU0% (BldA) [Mass fraction]96 %Marga Robledo ETCHER APPRENTICE Work Phone: [facility] HospitalTfyvtegbmk61-30-7637 09:45-0400Systolic blood qnhnayrq511 mm[Hg]Marga Robledo ETCHER APPRENTICE Work Phone: [facility] HospitalOqekmmejiy55-68-4817 10:08-0400Body mdymgu065.8 cmRobert Vaschak DO Work Phone: 1([phone])712-[address] [place], [place] 2501109-16-2025 10:08-0400 Body mass index (BMI) [Ratio]19.5 kg/x6Mfydzg Vaschak DO Work Phone: 1(301)932-[address] [place], [place] 2501109-16-2025 10:08-0400 Body qorcwo96.68 kgRobert Vaschak DO Work Phone: [address] [place], [place] 5754409-16-2025 10:08-0400 Diastolic blood okluzdlw29 mm[Hg]Marie Vaschak DO Work Phone: 1(334)754-[address] [place], [place] 2501109-16-2025 10:08-0400 Heart rate80 /minRobert Vaschak DO Work Phone: [facility]09-16-2025 10:08-0400 Respiratory rate18 /minRobert Vaschak DO Work Phone: [phone]09-16-2025 10:08-0400 SaO2% (BldA) [Mass fraction]98 %Marie Vaschak DO Work Phone: [phone]09-16-2025 10:08-0400 Systolic blood lgspiecm186 mm[Hg]Marie Tejeda DO Work Phone: [facility]06-24-2025 11:38-0400 Body wngzwo348.8 cmRoberleeann Tejeda DO Work Phone: [address] [place], [place] [address]Rkftwldqtw12-44-8934 11:38-0400Body mass index (BMI) [Ratio]19.8 kg/y3Taxaofmarsha Tejeda DO Work Phone: [address] [place], [place] [address]Cbdxwandhe41-65-3097 11:38-0400Body kacriz39.6 kg Marie Tejeda DO Work Phone: [address] [place], [place] [address]Hrtumjnefq36-87-9429 11:38-0400Diastolic blood gesrgwna34 mm[Hg]Marie Tejeda DO Work Phone: 2(189)9-[address] [place], [place] [address]Prmitmgpqn12-61-5247 11:38-0400Heart rate64 /min Marie Tejeda DO Work Phone: [phone] HospitalEktqxmkbpz83-38-6386 11:38-7912WoQ0% (BldA) [Mass fraction]96 %Marie Tejeda DO Work Phone: [phone])786-33[facility] HospitalHlzfotwmdr51-64-9258 11:38-0400Systolic blood adntzgoy416 mm[Hg]Marie Tejeda DO Work Phone: [phone] HospitalOhtiveadpu82-29-0848 12:09-0400Body qkivgc048.8 cmAyana Zavala APRN.LOAN REVIEW OFFICER Work Phone: [facility]04-17-2025 12:09-0400Body mass index (BMI) [Ratio]19.3 kg/d1MufuytvAyana Zavala APRN.LOAN REVIEW OFFICER Work Phone: [facility]04-17-2025 12:09-0400Body kg Ayana Zavala APRN.LOAN REVIEW OFFICER Work Phone: [facility]04-17-2025 12:09-0400Diastolic blood uyfwhvhp16 mm[Hg]Ayana Zavala LOG MARKER.LOAN REVIEW OFFICER Work Phone: [phone]04-17-2025 12:09-0400Heart rate60 /min Ayana Souleymane LOG MARKER.LOAN REVIEW OFFICER Work Phone: [phone]04-17-2025 12:09-7074OfA8% (BldA) [Mass fraction]99 %Ayaan Zavala LOG MARKER.LOAN REVIEW OFFICER Work Phone: [phone]04-17-2025 12:09-0400Systolic blood pbdysaax276 mm[Hg]Ayana Souleymane LOG MARKER.LOAN REVIEW OFFICER Work Phone: [phone]03-17-2025 14:27-0400Body mass index (BMI) [Ratio]19.96 kg/g9Zxosrmy Souleymane LOG MARKER.LOAN REVIEW OFFICER Work Phone: [phone]03-17-2025 14:27-0400Body tlhzuo79.1 kgAyana Zavala LOG MARKER.LOAN REVIEW OFFICER Work Phone: [phone]03-17-2025 14:27-0400Diastolic blood cqujsaop79 mm[Hg]Ayana Souleymane LOG MARKER.LOAN REVIEW OFFICER Work Phone: [phone]03-17-2025 14:27-0400Heart rate60 /min Ayana Souleymane LOG MARKER.LOAN REVIEW OFFICER Work Phone: [phone]03-17-2025 14:27-3605WiC4% (BldA) [Mass fraction]100 %Ayana Zavala LOG MARKER.LOAN REVIEW OFFICER Work Phone: [phone]03-17-2025 14:27-0400Systolic blood nsfheytb608 mm[Hg]Ayana Zavala LOG MARKER.LOAN REVIEW OFFICER Work Phone: [phone]02-20-2025 10:15-0500Body xuudsb219.8 cmRobert Vaschak DO Work Phone: [facility]02-20-2025 10:15-0500 Body mass index (BMI) [Ratio]20 kg/p3Rcthfg Vaschak DO Work Phone: [facility]02-20-2025 10:15-0500 Body ukogfr68.5 kgRobmarsha Tejeda DO Work Phone: [facility]02-20-2025 10:15-0500 Diastolic blood zuhctbmu84 mm[Hg]Marie Tejeda DO Work Phone: [facility]02-20-2025 10:15-0500 Heart rate60 /minRobmarsha Yunk DO Work Phone: [address] [place], [place] 5754402-20-2025 10:15-0500 Respiratory rate18 /minRobert Ileana DO Work Phone: 2([phone])049-[address] [place], [place] 2501102-20-2025 10:15-0500 SaO2% (BldA) [Mass fraction]97 %Marie Tejeda DO Work Phone: [facility]02-20-2025 10:15-0500 Systolic blood zfqumdje812 mm[Hg]Marie Tejeda DO Work Phone: [facility]02-19-2025 13:54-0500 Diastolic blood dkditoyi21 mm[Hg]Marie Tejeda DO Work Phone: [facility] HospitalDkfwrhwzut79-53-3082 13:54-0500Systolic blood uypzgmwp807 mm[Hg]Marie Tejeda DO Work Phone: [facility] HospitalPrwkvcaqmp41-26-4620 13:50-0500Heart rate61 /min Marie Tejeda DO Work Phone: [facility] HospitalKbsdlatrcl75-46-2511 13:50-5645ZoI5% (BldA) [Mass fraction]98 %Marie Tejeda DO Work Phone: [facility] HospitalQepkoqswyr30-70-8509 10:13-0500Body mass index (BMI) [Ratio]21.24 kg/q3Hhlshau Chiki ETCHER APPRENTICE Work Phone: [facility] HospitalVlvmhhjdad96-25-0246 10:13-0500Body dvknou13.13 kgCaitlin Chiki ETCHER APPRENTICE Work Phone: [facility] HospitalDfdanlpihs94-55-6394 10:13-0500Diastolic blood wewmpidw98 mm[Hg]Yomi Chong ETCHER APPRENTICE Work Phone: [facility] HospitalItogdukgqo75-88-1812 10:13-0500Heart rate74 /min Yomi Chong ETCHER APPRENTICE Work Phone: [facility] HospitalFzomupxbdt96-13-6124 10:13-5196YjQ6% (BldA) [Mass fraction]92 %Yomi Chong ETCHER APPRENTICE Work Phone: [facility] HospitalSmtlwfpepu78-66-2123 10:13-0500Systolic blood mqeaokgz890 mm[Hg]Yomi Chong ETCHER APPRENTICE Work Phone: [facility] HospitalLeyhdunxmr51-26-7534 13:57-0500Diastolic blood crjrtwni34 mm[Hg]Marie Vaschak DO Work Phone: 6(902)110-[address] [place], [place] 2501101-06-2025 13:57-0500 Systolic blood ithanngu472 mm[Hg]Marie Vaschak DO Work Phone: 1(391)500-[address] [place], [place] 2501101-06-2025 13:17-0500 Body xgidei897.8 cmRobert Vaschak DO Work Phone: 1(328)097-[address] [place], [place] 2501101-06-2025 12:03-0500 Body zyzusrdanyc63.1 [degF]Marie Vaschak DO Work Phone: 4(653)839-[address] [place], [place] 2501101-06-2025 12:03-0500 Heart rate60 /minRobert Vaschak DO Work Phone: 5(863)497-[address] [place], [place] 2501101-06-2025 12:03-0500 Respiratory rate12 /minRobert Vaschak DO Work Phone: 1(258)658-[address] [place], [place] 2501101-06-2025 12:03-0500 SaO2% (BldA) [Mass fraction]95 %Marie Vaschak DO Work Phone: 8(171)534-[address] [place], [place] 2501101-06-2025 03:36-0500 Body .8 cmRobert Vassunithak DO Work Phone: 2([phone])581-[address] [place], [place] 2501101-06-2025 03:36-0500 Body xuvvjhaqkbg33.6 [degF]Marie Vaschak DO Work Phone: 6([phone])[address]01-06-2025 03:36-0500 Body emmmeb66.5 kgRobert Vaschak DO Work Phone: 6(470)[address]01-06-2025 03:36-0500 Diastolic blood eiqohwta01 mm[Hg]Marie Vassunithak DO Work Phone: 3(768)[address]01-06-2025 03:36-0500 Heart rate61 /minRobert Vaschak DO Work Phone: 6(972)[address]01-06-2025 03:36-0500 Respiratory rate15 /minRobert Vaschak DO Work Phone: 3(651)7-[address] [place], [place] 2501101-06-2025 03:36-0500 SaO2% (BldA) [Mass fraction]91 %Marie Tejeda DO Work Phone: 5(940)3-[address] [place], [place] 2501101-06-2025 03:36-0500 Systolic blood vstrikjh923 mm[Hg]Marie Yunk DO Work Phone: 3(519)8-[address] [place], [place] 2501112-26-2024 11:15-0500 Body mass index (BMI) [Ratio]21.61 kg/e8SujgelvAyana Zavala APRN.LOAN REVIEW OFFICER Work Phone: [facility]12-26-2024 11:15-0500Body esmjjx62.3 kgAyana Zavala APRN.LOAN REVIEW OFFICER Work Phone: [phone]12-26-2024 11:15-0500Diastolic blood frlgemmv95 mm[Hg]Ayana Zavala APRN.LOAN REVIEW OFFICER Work Phone: [phone]12-26-2024 11:15-0500Heart rate60 /min Ayana Zavala APRN.LOAN REVIEW OFFICER Work Phone: [facility]12-26-2024 11:15-0500Systolic blood fzytenvj764 mm[Hg]Ayana Zavala LOAN REVIEW OFFICER Work Phone: [facility]12-23-2024 09:23-0500Body emtggv048.8 cmAilya Oh MD Work Phone: [facility] HospitalAinpvdwtlb54-38-9647 09:23-0500Body mass index (BMI) [Ratio]20.37 kg/p7UhfeqaBeto Oh MD Work Phone: [facility] HospitalQwepwcgkfi86-81-4779 09:23-0500Body cdomle55.41 kgBeto Oh MD Work Phone: [facility] HospitalKtctgnbies58-94-2198 12:00-0500Body temperature 97.6 [degF]Marie Xavichak DO Work Phone: [facility]12-11-2024 12:00-0500 Diastolic blood iassptsb29 mm[Hg]Marie Vaschak DO Work Phone: 1(403)343-[address] [place], [place] 2501112-11-2024 12:00-0500 Heart rate68 /minRobert Vaschak DO Work Phone: [phone]12-11-2024 12:00-0500 Respiratory rate16 /minRobert Vaschak DO Work Phone: [facility]12-11-2024 12:00-0500 SaO2% (BldA) [Mass fraction]98 %Marie Vaschak DO Work Phone: [phone]12-11-2024 12:00-0500 Systolic blood mm[Hg]Marie Vaschak DO Work Phone: [phone]12-11-2024 06:00-0500 Body .6 kgRobert Vaschak DO Work Phone: [phone]12-10-2024 12:12-0500 Body dagflt629.34 cmRoberleeann Vassunithak DO Work Phone: 1(479)[address]12-09-2024 14:59-0500 Body rcurav626.8 cmRobert Vaschak DO Work Phone: 1(399)[address]12-09-2024 14:59-0500Body mass index (BMI) [Ratio]20.37 kg/j0Ehpwiv Vaschak DO Work Phone: 1(723)[address] [place], [place] 9533512-09-2024 14:59-0500Body .41 kgRobert Vassunithak DO Work Phone: 1(332)[address] [place], [place] 9533512-09-2024 14:59-0500Diastolic blood ejoyppgh91 mm[Hg]Marie Tejeda DO Work Phone: 1(705)[address] [place], [place] 9533512-09-2024 14:59-0500Heart rate70 /min Marie Tejeda DO Work Phone: 1(700)[facility] [place], [place] [address]Jwvhsxyilr77-50-1228 14:59-0500Systolic blood dfmztwuf911 mm[Hg]Marie Tejeda DO Work Phone: 1(181)[address] [place], [place] 9533512-08-2024 15:42-0500Body temperature 97.6 [degF]Marie Tejeda DO Work Phone: 1(913)[address]12-08-2024 15:42-0500 Diastolic blood dnujldca15 mm[Hg]Marie Tejeda DO Work Phone: 4(873)4-[address] [place], [place] 2501112-08-2024 15:42-0500 Heart rate60 /minRobert Vaschak DO Work Phone: 3(502)902-[address] [place], [place] 2501112-08-2024 15:42-0500 Respiratory rate19 /minRobert Vaschak DO Work Phone: 3(554)[address] [place], [place] 2501112-08-2024 15:42-0500 SaO2% (BldA) [Mass fraction]96 %Marie Tejeda DO Work Phone: 4(468)604-[address] [place], [place] 2501112-08-2024 15:42-0500 Systolic blood ivtjdvpn155 mm[Hg]Marie Tejeda DO Work Phone: 1(933)266-[address] [place], [place] 2501112-08-2024 05:28-0500 Body .5 kgRobert Vassunithak DO Work Phone: 6(152)[address]12-06-2024 19:55-0500 Body gkanjl887.8 cmRobert Jamak DO Work Phone: 1(506)[address]11-19-2024 14:20-0500 Body .8 cmRobert Jamak DO Work Phone: 5(944)[address] [place] [address]-19-2024 14:20-0500Body mass index (BMI) [Ratio]21.09 kg/r4Gsgjqpmarsha Yunk DO Work Phone: [address] [place], [place] [address]Rnnofvwobd39-58-3680 14:20-0500Body .68 kgRobmarsha Tejeda DO Work Phone: [address] [place], [place] [address]Qznjtmglfs31-28-7105 14:20-0500Diastolic blood xnkzibjb11 mm[Hg]Marie Tejeda DO Work Phone: [address] [address]Wgvbkwyeab67-70-5390 14:20-0500Heart rate61 /min Marie Tejeda DO Work Phone: [address] [address]Zkrmgqjosm09-99-4457 14:20-2004YvL1% (BldA) [Mass fraction]97 %Marie Tejeda DO Work Phone: [phone] [address]Kmnpgiojbv98-63-4222 14:20-0500Systolic blood dsldksub964 mm[Hg]Marie Tejeda DO Work Phone: [address] [address]Fbjccqrhvw67-34-3557 08:00-0500Body gnnfxayampj45 [degF]Marie Tejeda DO Work Phone: [facility]11-14-2024 08:00-0500 Diastolic blood mm[Hg]Marie Tejeda DO Work Phone: 7(702)455-[address] [place], [place] 2501111-14-2024 08:00-0500 Heart rate60 /minRobert Vaschak DO Work Phone: 5(852)271-[address] [place], [place] 2501111-14-2024 08:00-0500 Respiratory rate16 /minRobert Vaschak DO Work Phone: 9(583)[address]11-14-2024 08:00-0500 SaO2% (BldA) [Mass fraction]97 %Marie Vaschak DO Work Phone: 1(983)[address]11-14-2024 08:00-0500 Systolic blood elcbklxi393 mm[Hg]Marie Vaschak DO Work Phone: 1(755)[address]11-14-2024 06:00-0500 Body qtexyp76 kgRobert Vaschak DO Work Phone: 6(547)[address]11-13-2024 20:12-0500 Body umhxlz495.8 cmRobert Vaschak DO Work Phone: 1(998)[address]11-13-2024 19:25-0500 Inhaled oxygen flow rate10 L/minRobert Vaschak DO Work Phone: 5(228)[address]10-30-2024 11:10-0400 Diastolic blood ubbdtnog29 mm[Hg]DO Marie Vaschak Work Phone: 7(977)[address]10-30-2024 11:10-0400 Heart rate61 /minDO Marie Vaschak Work Phone: 9(826)2-[address] [place], [place] 2501110-30-2024 11:10-0400 Systolic blood hvivlaar151 mm[Hg]DO Marie Vaschak Work Phone: 0(203)3-[address] [place], [place] 2501110-30-2024 11:00-0400 Body tvdxvo227.8 cmDO Marie Vaschak Work Phone: 9(673)499-[address] [place], [place] 2501110-30-2024 11:00-0400 Body mass index (BMI) [Ratio]21.9 kg/m2DO Marie Vaschak Work Phone: 1(855)[address]10-30-2024 11:00-0400 Body .39 kgDO Marie Tejeda Work Phone: 1(684)[address]10-30-2024 11:00-0400 Respiratory rate18 /minDO Marie Jamak Work Phone: 6(894)[address]10-30-2024 11:00-0400 SaO2% (BldA) [Mass fraction]98 %DO Marie Tejeda Work Phone: 1(691)[address] [place], [place] 7237410-16-2024 14:14-0400 Diastolic blood lxinrtir79 mm[Hg]DO Marie Ileana Work Phone: 1(939)[address]10-16-2024 14:14-0400 Systolic blood mm[Hg]DO Marie Tejeda Work Phone: 1(594)[address] [place], [place] 7237410-16-2024 13:23-0400 Body wmedqj016.8 cmDO Marie Tejeda Work Phone: 1(249)[address] [place], [place] 7237410-16-2024 13:23-0400 Body mass index (BMI) [Ratio]22.2 kg/m2DO Marie Tejeda Work Phone: 6(388)[address] [place], [place] 7237410-16-2024 13:23-0400 Body uxnvae50.3 kgDO Marie Tejeda Work Phone: 8(730)[address] [place], [place] 7237410-16-2024 13:23-0400 Heart rate56 /minDO Marie Tejeda Work Phone: 9(644)[address]10-16-2024 13:23-0400 Respiratory rate18 /minDO Marie Yunk Work Phone: 4(734)[address]10-16-2024 13:23-0400 SaO2% (BldA) [Mass fraction]94 %DO Marie Ileana Work Phone: 1(723)[address] [place], [place] 7237410-16-2024 10:24-0400 Diastolic blood xgdyqugk71 mm[Hg]DO Marie Tejeda Work Phone: [facility]10-16-2024 10:24-0400 Heart rate55 /Eleazar Tejeda Work Phone: [facility]10-16-2024 10:24-0400 Respiratory rate12 /Eleazar Tejeda Work Phone: [facility]10-16-2024 10:24-0400 SaO2% (BldA) [Mass fraction]97 %DO Marie Tejeda Work Phone: [facility]10-16-2024 10:24-0400 Systolic blood mm[Hg]DO Marie Tejeda Work Phone: [facility]10-14-2024 15:59-0400 Diastolic blood dmaxjmnz86 mm[Hg]Anatoly Cally ETCHER APPRENTICE Work Phone: [facility] HospitalWlvyfombnm56-50-7916 15:59-0400Heart rate50 /min Yuerong Cally ETCHER APPRENTICE Work Phone: [facility] HospitalHeqdjigsxr96-54-0718 15:59-5818YjA1% (BldA) [Mass fraction]90 %Yuerong Cally ETCHER APPRENTICE Work Phone: [facility] HospitalDjuhutuaih89-96-6333 15:59-0400Systolic blood mhsvdowu898 mm[Hg]Yuerong Cally ETCHER APPRENTICE Work Phone: [facility] HospitalMnrtzjradd70-32-2683 10:52-0400Diastolic blood vqpcfvba18 mm[Hg]Marie Jamak DO Work Phone: [facility] HospitalVyivgxxguj67-29-7993 10:52-0400Heart rate52 /min Marie Vaschak DO Work Phone: [place] [address]Cjkgbqupbh83-18-0371 10:52-1984YhG6% (BldA) [Mass fraction]94 %Marie Jamak DO Work Phone: [place] [phone] 10:52-0400Systolic blood qqoljlne60 mm[Hg]Marie Jamak DO Work Phone: [phone] HospitalIrsxrcyssl68-04-4715 10:50-0400Body lfysoq169.8 cmRobert Jamak DO Work Phone: [facility] HospitalKdqnqbcioq10-47-4639 10:50-0400Body mass index (BMI) [Ratio]20.81 kg/n8Wdjlev Vaschak DO Work Phone: [facility] HospitalClfieybvmk03-45-7332 10:50-0400Body naaogn23.77 kgRobert Vaschak DO Work Phone: [phone]09-16-2024 11:09-0400Body .8 cmDO Marie Yunk Work Phone: [phone])[address]09-16-2024 11:09-0400 Body mass index (BMI) [Ratio]20.9 kg/m2DO Marie Yunk Work Phone: [phone])[address]09-16-2024 11:09-0400 Body eabrnd00.22 kgDO Marie Jamak Work Phone: [phone])[address]09-16-2024 11:09-0400 Diastolic blood buwqbvku46 mm[Hg]DO Marie Jamak Work Phone: [phone])[address]09-16-2024 11:09-0400 Heart rate61 /minDO Marie Yunk Work Phone: [phone]09-16-2024 11:09-0400 Respiratory rate18 /minDO Marie Yunk Work Phone: [phone] [place], [place] 2501109-16-2024 11:09-0400 SaO2% (BldA) [Mass fraction]97 %DO Marie Xavichak Work Phone: 5(575)0-[address] [place], [place] 2501109-16-2024 11:09-0400 Systolic blood luoivrrn536 mm[Hg]DO Marie Xavichak Work Phone: 8(463)450-[address] [place], [place] 2501109-04-2024 11:08-0400 Diastolic blood gegtddlv23 mm[Hg]DO Marie Jaamk Work Phone: 5(845)678-[address] [place], [place] 2501109-04-2024 11:08-0400 Heart rate59 /Eleazar Yunk Work Phone: 9(152)339-[address] [place], [place] 2501109-04-2024 11:08-0400 Systolic blood wdomidum721 mm[Hg]DO Marie Xavichak Work Phone: 1(102)946-[address] [place], [place] 2501109-04-2024 11:07-0400 Respiratory rate18 /TitaO Marie Yunk Work Phone: 3(355)[address]09-04-2024 11:06-0400 Body catgkx408.8 cmDO Marie Yunk Work Phone: 1(169)[address]09-04-2024 11:06-0400 Body mass index (BMI) [Ratio]21.5 kg/m2DO Marie Yunk Work Phone: 1(076)[address]09-04-2024 11:06-0400 Body liklwn69.03 kgDO Marie Tejeda Work Phone: 4(509)[address]09-04-2024 11:06-0400 SaO2% (BldA) [Mass fraction]95 %DO Marie Jamak Work Phone: 6(193)494-[address] [place], [place] 2501108-30-2024 11:01-0400 Diastolic blood kgmslyyh61 mm[Hg]DO Marie Xavichak Work Phone: [address] [place], [place] 5754408-30-2024 11:01-0400 Heart rate45 /TitaO Marie Yunk Work Phone: 2(762)145-[address] [place], [place] 2501108-30-2024 11:01-0400 Systolic blood dvhdjtea478 mm[Hg]DO Marie Vaschak Work Phone: 7(490)848-[address] [place], [place] 2501108-28-2024 11:24-0400 Diastolic blood ihaablae73 mm[Hg]DO Marie Ileana Work Phone: [facility]08-28-2024 11:24-0400 Heart rate54 /Eleazar Tejeda Work Phone: [facility]08-28-2024 11:24-0400 Systolic blood rmzuvktm871 mm[Hg]DO Marie Tejeda Work Phone: 1(435)426-[address] [place], [place] 2501108-21-2024 12:36-0400 Respiratory rate18 /minDO Marie Tejeda Work Phone: 1(982)[address]08-21-2024 12:36-0400 SaO2% (BldA) [Mass fraction]97 %DO Marie Tejeda Work Phone: 4(508)97[address]08-20-2024 13:29-0400 Diastolic blood rreluzgh16 mm[Hg]DO Marie Tejeda Work Phone: 4(401)64[address]08-20-2024 13:29-0400 Heart rate52 /Eleazar Tejeda Work Phone: 1(922)649-[address] [place], [place] 2501108-20-2024 13:29-0400 Systolic blood elefkwxw93 mm[Hg]DO Marie Tejeda Work Phone: 5(867)[address]08-20-2024 13:25-0400 Respiratory rate18 /Eleazar Tejeda Work Phone: 3(541)313-[address] [place], [place] 2501108-20-2024 13:24-0400 Body .8 cmDO Marie Tejeda Work Phone: 4(310)128-[address] [place], [place] 2501108-20-2024 13:24-0400 Body mass index (BMI) [Ratio]21.4 kg/m2DO Marie Jamak Work Phone: 8(962)760-[address] [place], [place] 2501108-20-2024 13:24-0400 Body kxrfdi82.58 kgDO Marie Yunk Work Phone: 7(356)088-[address] [place], [place] 2501108-20-2024 13:24-0400 SaO2% (BldA) [Mass fraction]99 %DO Marie Xavichak Work Phone: 1(615)529-[address] [place], [place] 2501108-06-2024 10:12-0400 Diastolic blood qxrhilaz06 mm[Hg]DO Marie Jamak Work Phone: 1(822)588-[address] [place], [place] 2501108-06-2024 10:12-0400 Heart rate48 /minDO Marie Yunk Work Phone: 1(981)16191 [address]08-06-2024 10:12-0400 Systolic blood camzgway19 mm[Hg]DO Marie Jamak Work Phone: 1(484)[address]08-06-2024 10:11-0400 Body .8 cmDO Marie Tejeda Work Phone: 1(997)[address]08-06-2024 10:11-0400 Body mass index (BMI) [Ratio]21.5 kg/m2DO Marie Tejeda Work Phone: 1(237)568[address]08-06-2024 10:11-0400 Body .03 kgDO Marie Tejeda Work Phone: 1(866)77[address]08-06-2024 10:11-0400 Respiratory rate18 /Eleazar Tejeda Work Phone: 1(203)42791 [address]08-06-2024 10:11-0400 SaO2% (BldA) [Mass fraction]97 %DO Marie Ileana Work Phone: 1(039)782-[address] [place], [place] 2501107-30-2024 11:29-0400 Diastolic blood mm[Hg]DO Marie Ileana Work Phone: 1(935)[address]07-30-2024 11:29-0400 Heart rate45 /TitaO Marie Jamak Work Phone: 6(227)524-[address] [place], [place] 2501107-30-2024 11:29-0400 Respiratory rate16 /minDO Marie Jamak Work Phone: 1(415)638-[address] [place], [place] 2501107-30-2024 11:29-0400 SaO2% (BldA) [Mass fraction]98 %DO Marie Jamak Work Phone: 1(495)218-[address] [place], [place] 2501107-30-2024 11:29-0400 Systolic blood uztcmijv640 mm[Hg]DO Marie Xavichak Work Phone: 2(378)447-[address] [place], [place] 2501107-30-2024 07:59-0400 Body zajwzktlueo34.8 [degF]DO Marie Jamak Work Phone: 1(662)01[address]07-30-2024 05:37-0400 Body leswla03.9 kgDO Marie Tejeda Work Phone: 4(154)705[address]07-28-2024 15:56-0400 Body gbuvfb754.8 cmDO Marie Tejeda Work Phone: 2(523)867-[address] [place], [place] 2501107-28-2024 00:57-0400 Diastolic blood cfcznilu42 mm[Hg]DO Marie Ileana Work Phone: 1(758)466-[address] [place], [place] 2501107-28-2024 00:57-0400 Heart rate58 /minDO Marie Tejeda Work Phone: 4(453)082-[address] [place], [place] 2501107-28-2024 00:57-0400 Respiratory rate18 /minDO Marie Tejeda Work Phone: [address] [place], [place] 5754407-28-2024 00:57-0400 SaO2% (BldA) [Mass fraction]100 %DO Marie Ileana Work Phone: [address] [place], [place] 5754407-28-2024 00:57-0400 Systolic blood ynlhtrej191 mm[Hg]DO Marie Jamak Work Phone: 5(082)601-[address] [place], [place] 2501107-27-2024 19:13-0400 Body .07 cmDO Marie Jamak Work Phone: 1(767)485-[address] [place], [place] 2501107-27-2024 19:13-0400 Body pgngjompkwg55.6 [degF]DO Marie Xavichak Work Phone: 4(905)995-[address] [place], [place] 2501107-27-2024 19:13-0400 Body zgmgis69.5 kgDO Marie Tejeda Work Phone: 2(774)[address]05-02-2024 13:50-0400 Diastolic blood lemewxgy36 mm[Hg]DO Marie Tejeda Work Phone: 8(210)35[address]05-02-2024 13:50-0400 Heart rate56 /Eleazar Tejeda Work Phone: 5(349)[address]05-02-2024 13:50-0400 Respiratory rate16 /TitaO Marie Tejeda Work Phone: 9(192)[address]05-02-2024 13:50-0400 SaO2% (BldA) [Mass fraction]97 %DO Marie Tejeda Work Phone: 0(648)[address]05-02-2024 13:50-0400 Systolic blood ninqstjd342 mm[Hg]DO Marie Tejeda Work Phone: 1(771)[address]05-02-2024 12:20-0400 Body dihjzp863.8 cmDO Marie Tejeda Work Phone: 5(953)[address]05-02-2024 12:20-0400 Body vyzfig18.77 kgDO Marie Tejeda Work Phone: 6(696)2-[address] [place], [place] 2501104-18-2024 14:51-0400 Body nafafa789.8 cmDO Marie Tejeda Work Phone: 2(597)419-[address] [place], [place] 2501104-18-2024 14:51-0400 Body mass index (BMI) [Ratio]20.9 kg/m2DO Marie Tejeda Work Phone: 5(899)677-[address] [place], [place] 2501104-18-2024 14:51-0400 Body cbexaf85.22 kgDO Marie YunCarbylan BioSurgery Work Phone: 3(361)418-[address] [place], [place] 2501104-18-2024 14:51-0400 Diastolic blood syyhcxkx23 mm[Hg]DO Marie Tejeda Work Phone: 1(544)70791 [address]04-18-2024 14:51-0400 Heart rate64 /Eleazar Tejeda Work Phone: 1(067)[address]04-18-2024 14:51-0400 Respiratory rate18 /TitaO Marie Tejeda Work Phone: 1(867)735[address]04-18-2024 14:51-0400 SaO2% (BldA) [Mass fraction]96 %DO Marie Tejeda Work Phone: 1(961)[address]04-18-2024 14:51-0400 Systolic blood mm[Hg]DO Marie Ileana Work Phone: 1(160)[address]04-11-2024 08:36-0400 Body kozqeq937.8 cmDO Marie YunCarbylan [employer]Sur[employer] Work Phone: 1(767)[address]04-11-2024 08:36-0400 Body mass index (BMI) [Ratio]21.2 kg/m2DO Marie Alter EcosunithaCarbylan [employer]Sur[employer] Work Phone: 4(716)[address]04-11-2024 08:36-0400 Body .13 kgDO Marie YunCarbylan [employer] Work Phone: 5(650)[address]03-19-2024 10:26-0400 Body .8 cmDO Marie YunCarbylan [employer] Work Phone: 0(745)71291 [address]03-19-2024 10:26-0400 Body mass index (BMI) [Ratio]21.2 kg/m2DO Marie Alter [employer]cosunithaCar[employer] Work Phone: 0(230)329-[address] [place], [place] 2501103-19-2024 10:26-0400 Body crzuyp03.13 kgDO Marie JamaCarbylan BioSurgery Work Phone: 3(455)719-[address] [place], [place] 2501103-18-2024 15:40-0400 Diastolic blood xouhwehv58 mm[Hg]DO Marie Xavichak Work Phone: [facility]03-18-2024 15:40-0400 Heart rate72 /Eleazar Tejeda Work Phone: [facility]03-18-2024 15:40-0400 Systolic blood xslkmjho959 mm[Hg]DO Marie Tejeda Work Phone: 5(857)31591 [address]02-26-2024 12:00-0500 Body jlthpzcvorh65.4 [degF]DO Marie Tejeda Work Phone: [address] [place], [place] 5754402-26-2024 12:00-0500 Diastolic blood spzvikrk35 mm[Hg]DO Marie Tejeda Work Phone: 1(334)255-[address] [place], [place] 2501102-26-2024 12:00-0500 Heart rate67 /Eleazar Tejeda Work Phone: [address] [place], [place] 5754402-26-2024 12:00-0500 Respiratory rate16 /Eleazar Tejeda Work Phone: [address] [place], [place] 5754402-26-2024 12:00-0500 SaO2% (BldA) [Mass fraction]97 %DO Marie Tejeda Work Phone: 5(732)100-11[facility]02-26-2024 12:00-0500 Systolic blood mm[Hg]DO Marie Tejeda Work Phone: [facility]02-26-2024 06:00-0500 Body .2 kgDO Marie Tejeda Work Phone: [facility]02-21-2024 15:42-0500 Body .8 cmDO Marie Tejeda Work Phone: [facility]02-05-2024 14:07-0500 Body ugfjgb226.8 cmSammy Berman APRN-KALANI Work Phone: [facility]02-05-2024 14:07-0500 Body mass index (BMI) [Ratio]20.09 kg/j2TxzgcSammy Berman LOG MARKER-LOAN REVIEW OFFICER Work Phone: [facility]02-05-2024 14:07-0500 Body jhfkum30.5 kgSammy Berman LOG MARKER-LOAN REVIEW OFFICER Work Phone: [facility]02-05-2024 14:07-0500 Diastolic blood ilqzmegc65 mm[Hg]Sammy Berman LOG MARKER-LOAN REVIEW OFFICER Work Phone: [facility]02-05-2024 14:07-0500 Heart rate72 /Markus Berman LOG MARKER-LOAN REVIEW OFFICER Work Phone: [facility]02-05-2024 14:07-0500 Systolic blood cbkxzsio516 mm[Hg]Sammy Berman LOG MARKER-LOAN REVIEW OFFICER Work Phone: [facility]01-05-2024 22:45-0500 Diastolic blood vxhpmerl89 mm[Hg]DO Marie Tejeda Work Phone: [facility]01-05-2024 22:45-0500 Heart rate69 /Eleazar Tejeda Work Phone: [address] [place], [place] 5754401-05-2024 22:45-0500 Respiratory rate16 /Eleazar Yunk Work Phone: [address] [place], [place] 5754401-05-2024 22:45-0500 SaO2% (BldA) [Mass fraction]98 %DO Marie Tejeda Work Phone: [facility]01-05-2024 22:45-0500 Systolic blood mm[Hg]DO Marie Hurleychak Work Phone: [facility]01-05-2024 13:24-0500 Body .8 cmDO Marie Yunk Work Phone: [facility]01-05-2024 13:24-0500 Body zxyxpzpzijq98.7 [degF]DO Marie Yunk Work Phone: [facility]01-05-2024 13:24-0500 Body wbgvor09.95 kgDO Marie Tejeda Work Phone: [facility]11-14-2023 13:41-0500 Diastolic blood inwcrqfm56 mm[Hg]Govind Davis DO Work Phone: [facility]11-14-2023 13:41-0500 Systolic blood rmwpgugp655 mm[Hg]Govind Davis DO Work Phone: [facility]11-14-2023 13:37-0500 Body fznntu932.8 cmWieron Davis DO Work Phone: [address] [place], [place] 0873811-14-2023 13:37-0500 Body mass index (BMI) [Ratio]19.51 kg/z0NaepcgdGovind Davis DO Work Phone: [facility]11-14-2023 13:37-0500 Body vgqzip99.69 kgWieron Davis DO Work Phone: [facility]11-14-2023 13:37-0500 Heart rate70 /minGovind Davis DO Work Phone: [facility]10-28-2023 10:33-0400 Diastolic blood epoqgobq37 mm[Hg]DO Marie Tejeda Work Phone: [facility]10-28-2023 10:33-0400 Heart rate97 /Eleazar Tejeda Work Phone: [facility]10-28-2023 10:33-0400 Respiratory rate18 /minDJuan Ramon Yunk Work Phone: [facility]10-28-2023 10:33-0400 Systolic blood ieehpgyy624 mm[Hg]DO Marie Jamak Work Phone: [facility]10-28-2023 05:00-0400 Body weqwjisboct76.8 [degF]DO Marie Xavichak Work Phone: 1(419)[address]10-28-2023 05:00-0400 SaO2% (BldA) [Mass fraction]97 %DO Marie Tejeda Work Phone: 1(466)[address]10-24-2023 11:00-0400 Body dglrao696.8 cmDO Marie Tejeda Work Phone: 2(536)[address] [place], [place] 7237410-23-2023 16:44-0400 Body fiuyef80.4 kgDO Marie Tejeda Work Phone: 1(865)[address] [place], [place] 7237410-23-2023 11:48-0400 Body oispxfitqja82.1 [degF]DO Marie Tejeda Work Phone: 9(277)[address] [place], [place] 7237410-23-2023 11:48-0400 Diastolic blood mkradcue98 mm[Hg]DO Marie Tejeda Work Phone: 1(593)[address] [place], [place] 7237410-23-2023 11:48-0400 Heart rate55 /Eleazar Tejeda Work Phone: 1(447)[address] [place], [place] 7237410-23-2023 11:48-0400 Respiratory rate18 /Eleazar Tejeda Work Phone: 5(276)[address]10-23-2023 11:48-0400 SaO2% (BldA) [Mass fraction]99 %DO Marie Tejeda Work Phone: 4(284)[address]10-23-2023 11:48-0400 Systolic blood fsngueny558 mm[Hg]DO Marie Tejeda Work Phone: 1(332)[address]10-23-2023 05:40-0400 Body .6 kgDO Marie Tejeda Work Phone: 6(212)[address]10-22-2023 00:00-0400 Inhaled oxygen flow rate6 L/Eleazar Tejeda Work Phone: 1(052)[address]10-20-2023 15:31-0400 Body mass index (BMI) [Ratio]18.8 kg/m2DO Marie Tejeda Work Phone: 1(062)[address]10-20-2023 15:25-0400 Body kyupqf945.34 cmDO Marie Tejeda Work Phone: 2(825)[address]10-18-2023 16:32-0400 Heart rate63 /Eleazar Tejeda Work Phone: 1(769)[address]10-18-2023 16:24-0400 Diastolic blood lunafpmo01 mm[Hg]DO Marie Tejeda Work Phone: 1(922)[address]10-18-2023 16:24-0400 Respiratory rate18 /Eleazar Tejeda Work Phone: 1(885)[address]10-18-2023 16:24-0400 SaO2% (BldA) [Mass fraction]98 %DO Marie Tejeda Work Phone: 1(048)[address] [place], [place] 7237410-18-2023 16:24-0400 Systolic blood exzfsbig741 mm[Hg]DO Marie Tejeda Work Phone: 1(344)[address] [place], [place] 7237410-18-2023 13:34-0400 Body srrffmreotv65.2 [degF]DO Marie Tejeda Work Phone: 1(457)[address]10-18-2023 12:19-0400 Body ummsdv574.34 cmDO Marie Tejeda Work Phone: 1(090)[address]10-18-2023 12:19-0400 Body jjabxc91.41 kgDO Marie Tejeda Work Phone: 1(422)[address]06-29-2022 09:35-0400 Diastolic blood rkqolfnn77 mm[Hg]Gray Ross MD Work Phone: bon [facility]06-29-2022 09:35-0400Systolic blood qdbidfuk270 mm[Hg]Gray Ross MD Work Phone: bon [facility]06-29-2022 07:46-0400Body ulljvizgtpp99.81 [degF]Gray Ross MD Work Phone: bon [facility]06-29-2022 07:46-0400Heart rate64 /minGray Ross MD Work Phone: bON [facility]06-29-2022 07:46-0400 Respiratory rate15 /minGray Ross MD Work Phone: bon [facility]06-29-2022 07:46-5770BdB8% (BldA) [Mass fraction]98 %Gray Ross MD Work Phone: bON [facility]06-25-2022 04:00-0400Body nyytyg387.8 cmGray Ross MD Work Phone: bON [facility]06-25-2022 04:00-0400Body mass index (BMI) [Ratio]20.81 kg/j1CjckjaiGray Ross MD Work Phone: bon [facility]06-25-2022 04:00-0400Body .8 kgGray Ross MD Work Phone: [facility] Encounters Encounter DateEncounter TypeCare ProviderFacilityStart: 05-21-2025 End: 71-50-8224ilttbgrgpdXjmvlcm P COOKFacility:EU [place]vueStart: 05-21-2025 End: 16-87-7480Rewffia encounter procedureTristan MELCHOR [facility] start: 05-17-2025 End: 73-02-5344Robxrdlgw department patient visitAstrit H NicolasariFacility:[facility] [place] Start: 05-10-2025 End: 94-56-2092Kwwruenle Result EncounterGeneric External Data ProviderNOMS External Department UnsolicitedStart: 05-10-2025 End: 21-46-3884Ktpnzppre Result EncounterGeneric External Data ProviderNOMS External Department UnsolicitedStart: 05-09-2025 End: 61-79-1030bjckunteqsOrpegu Ileana DO Work Phone: 7(812)720-8459054-3859-Rnrwgrtfg Health CardiologyStart: 05-09-2025 End: 84-54-5123Fbxidio encounter procedureAnat Perez MD-[facility] Work Phone: Start: 05-08-2025 End: 31-84-3167Irjvmhqqj Result EncounterGeneric External Data ProviderNOMS External Department UnsolicitedStart: 05-08-2025 End: 96-78-5542Ktdfjapfj Result EncounterGeneric External Data ProviderNOMS External Department UnsolicitedStart: 05-03-2025 End: 09-24-6513pbezqfgadvADMTUGN MARSHALLFacility:[facility] Start: 05-02-2025 End: 56-14-8250evizummeqvFLO WARCHOLNot AvailableStart: 05-02-2025 End: 46-36-7863Qjuqsd outpatient visit 40 minutesMarga Robledo NP Work Phone: [facility] Internal MedicineComment on above:Need for [...] (implantable cardioverter-defibrillator) in place; PacemakerStart: 04-25-2025 End: 38-06-4691uxxdtgymriIluuffi P COOKFacility:EU kStart: 04-25-2025 End: 31-06-9902Osinrhw encounter procedureTristan MELCHOR [facility] Start: 04-18-2025 End: 57-77-5585skknreihhsRcxycdg P COOKFacility:EU [place]nietart: 04-18-2025 End: 32-89-8382Iqbobdl encounter procedureGreggiuliano MELCHOR [facility] Start: 35-86-6190adhulnzraeZsgdsh HajdariFacility:EU [place]Start: 04-09-2025 End: 43-34-9980Llveswmjq Result EncounterGeneric External Data ProviderNOMS External Department UnsolicitedStart: 04-09-2025 End: 53-70-2761Pjgdrklip Result EncounterGeneric External Data ProviderNOMS External Department UnsolicitedStart: 04-09-2025 End: 83-05-8560lodzpuiipfKLACNYK MARSHALLFacility:[facility] Start: 04-09-2025 End: 78-68-1368thmzzttohaVKPBNA TRU TEJEDAFacility:[facility] Start: 04-02-2025 End: 41-89-5742Bfqdlqqcf Result EncounterGeneric External Data ProviderNOMS External Department UnsolicitedStart: 04-02-2025 End: 99-46-2014Aadqgtnqj Result EncounterGeneric External Data ProviderNOMS External Department UnsolicitedStart: 03-28-2025 End: 23-78-1095Dfvswo-up encounterMelrudi Peguero LPNEndocrinologyStart: 03-27-2025 End: 40-37-3254saiscjgvbiNyzcdh Vaschak DO Work Phone: [facility] Work Phone: Start: 03-27-2025 End: 23-59-9269Bbzgbws encounter procedureAnat Perez MD-[facility] Work Phone: Start: 03-16-2025 End: 88-60-3918Jagbyh Cesar Zavala APRN.CNP Work Phone: EndocrinologyStart: 03-02-2025 End: 44-39-9498tjmuobyvkcSazpwv IleanaFacility:[facility] Hospitaltart: 74-50-2690Srs-patient / Non-visitMikel Root-Heart Rhythm ClinicStart: 02-13-2025 End: 43-01-8474Tletzhhtc Result EncounterGeneric External Data ProviderNOMS External Department UnsolicitedStart: 02-13-2025 End: 49-24-3725Dhvncycmd Result EncounterGeneric External Data ProviderNOMS External Department UnsolicitedStart: 02-05-2025 End: 89-73-1214nqgtyzwjllLtcerhj Bayer APRN.CNP Work Phone: RheumatologyComment on above:Blood testStart: 02-05-2025 End: 91-64-6948Lqjlhftqq encounterAyana Zavala APRN.CNP Work Phone: EndocrinologyStart: 01-16-2025 End: 89-35-7745kfksbtcccyJWCULI J VASCHAKNot AvailableStart: 01-08-2025 End: 83-54-1209Ytwthw OnlyRobert J Vaschak DO Work Phone: noms External Department UnsolicitedStart: 01-02-2025 End: 87-28-6540Iomtyk outpatient visit 25 minutesRobert J Alter Ecochak DO Work Phone: NOXG SWS IMComment on above:Pancreatic insufficiency (HCC) (Primary Dx); PleurisyStart: 01-02-2025 End: 62-77-7960jmeiwuebzuPOSZFI J VASCHAKNot AvailableStart: 01-01-2025 End: 03-20-4249lefecpajhxIsupjdrAnastasia Zavala APRN.CNP Work Phone: EndocrinologyComment on above:Rx for sensorsStart: 12-26-2024 End: 82-92-1942amlzecngpcJwbbceqNohelia Zavala APRN.CNP Work Phone: EndocrinologyComment on above:SensorsStart: 12-19-2024 End: 14-40-9455Rhetqhtdi encounterAyana Zavala APRN.CNP Work Phone: EndocrinologyComment on above:Refill RequestStart: 12-12-2024 End: 24-82-2478GvvnbsJexthsqAyana Zavala APRN.CNP Work Phone: EndocrinologyComment on above:Refill RequestStart: 11-30-2024 End: 83-25-0818qotkxqwntpKbsncd VaschakFacility:[facility] Hospitaltart: 75-31-9259Cbl-patient / Non-visitC[facility]-Heart Rhythm ClinicStart: 11-01-2024 End: 36-59-7330bxqvfarwjlCkgntngNohelia Zavala APRN.CNP Work Phone: EndocrinologyComment on above:Medication changeStart: 10-26-2024 End: 23-41-9916Kwgdlay encounter procedureAyana Zavala APRN.CNP Work Phone: EndocrinologyComment on above: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, with long-term current use of insulin(HCC) (Primary Dx); 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); Insulin pump status; Insulin pump titrationStart: 10-26-2024 End: 68-88-0098xplzprlqouDQRHDPRy Brumfieldcility:[facility] Start: 10-23-2024 End: 94-49-4822Eiintziru Result EncounterGeneric External Data ProviderNOMS External Department UnsolicitedStart: 10-23-2024 End: 02-27-6920Llpceegdg Result EncounterGeneric External Data ProviderNOMS External Department UnsolicitedStart: 10-13-2024 End: 45-47-5460Rsrjwogll encounterGaye Mata RNDiCorpus Christi [facility] FHCComment on above:Omnipod/Dexcom issuesStart: 10-13-2024 End: 40-95-7608jlzcacqejsDsdjpq Vaschak DO Work Phone: [facility] Work Phone: Start: 10-13-2024 End: 69-81-0775Gbkbycu encounter procedureRobmarsha Tejeda DO Work Phone: [facility] GroupNov[facility] Work Phone: Start: 10-11-2024 End: 19-95-8625Ygalxvksc encounterAyana Zavala APRN.CNP Work Phone: EndocrinologyComment on above:Insurance Authorization (insulin pump cart,auto,BT,G6/7 (OMNIPOD 5 G6-G7 PODS, GEN 5,) crtg)Omnipod 5/Dexcom G7 issuesStart: 10-10-2024 End: 34-90-8529Lzghhryah encounterGaye TorresCorpus Christi Medical Center [facility] Area FHCComment on above:Dexcom G7 CGM supply issuesStart: 10-04-2024 End: 24-60-4683HjmorgSgvzmclLashon Zavala APRN.CNP Work Phone: EndocrinologyComment on above:Med Change RequestStart: 10-04-2024 End: 18-48-6993Cwaqtycnv encounterGaye TorresCorpus Christi Medical Center [facility] Area FHCComment on above:Omnipod 5/Dexcom helpDexcom G7 CGM supply issues Start: 09-27-2024 End: 58-02-9232qjbfrjinubGruvuwwNohelia Zavala APRN.CNP Work Phone: EndocrinologyComment on above:GlucoseStart: 09-27-2024 End: 73-70-6035Ukcjhjmoh encounterGaye TorresCorpus Christi [facility] Area FHCComment on above:Omnipod 5 pump follow up callStart: 09-26-2024 End: 41-59-5280Neacox-up encounterAyana Zavala APRN.CNP Work Phone: EndocrinologyStart: 09-26-2024 End: 08-51-6426Yerwkxdan Aisha Zavala APRN.CNP Work Phone: EndocrinologyStart: 09-25-2024 End: 20-32-7158risvhcuvhhIMFPDV JOSEPH VASCHAKFacility:[facility] Start: 09-25-2024 End: 64-40-1307Ehtxyok encounter Margaret Zavala APRN.CNP Work Phone: EndocrinologyComment on above: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, with long-term current use of insulin(HCC) (Primary Dx); 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); Insulin pump status; Insulin pump titrationStart: 09-22-2024 End: 92-85-0257Voxiot OnlyAyana Zavala APRN.CNP Work Phone: EndocrinologyComment on above: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, with long-term current use of insulin(HCC) (Primary Dx)Omnipod 5 pump issueStart: 09-21-2024 End: 86-82-7674Dhtdpdbyr encounterGaye Torresabetic [facility] Medical Centerment on above:Omipod 5 upgrade follow up callStart: 09-13-2024 End: 38-64-7885Fotvtdsda Result EncounterGeneric External Data ProviderNOMS External Department UnsolicitedStart: 09-13-2024 End: 21-15-2302Trgbighai Result EncounterGeneric External Data ProviderNOMS External Department UnsolicitedStart: 09-04-2024 End: 25-28-1690etazdevmeiUHYFFK TRU ILEANAFacility:[facility] Start: 09-04-2024 End: 10-33-1325Pxlgqik evaluation of patient and reportGaye Torresabetic [facility] Conroeomment on above: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, with long-term current use of insulin(HCC) (Primary Dx)Start: 08-31-2024 End: 66-61-5337Sgtfsxjxs encounterGaye Torresabetic [facility] on above:AppointmentStart: 08-31-2024 End: 40-07-7935xikqrmtavcQimbky Vaschak DO Work Phone: [facility] Work Phone: Start: 08-31-2024 End: 33-37-7911Kbuhxzm encounter procedureRobert Vaschak DO Work Phone: [facility] Cardiology Work Phone: Start: 08-30-2024 End: 97-25-9980Iqbnrp outpatient visit 40 minutesRobert Khoi Tejeda DO Work Phone: N[facility] SWS IMComment on above:Abdominal wall abscess; Acquired total absence of pancreas; Insulin pump in place; Lower respiratory infection; ICD (implantable cardioverter-defibrillator) in place; H/O splenectomy; 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); Chronic systolic CHF (congestive heart failure), NYHA class 2 (CMS/HCC); Nonrheumatic mitral valve regurgitation; Pancreatic insufficiency (CMS/HCC)Start: 08-30-2024 End: 54-64-7569bcyqnyiyhyMZFTQE Khoi VASSUNITHAKNot AvailableStart: 08-29-2024 End: 37-55-9096ozpoykyzsjWivbbi XavichakFacility:[facility] Hospitaltart: 66-76-9939Wil-patient / Non-visitRobert Vasjorge DO Work Phone: [facility]-Heart Rhythm ClinicStart: 08-15-2024 End: 28-22-3313Evlnggubx encounterKirsrosy Zavala APRN.CNP Work Phone: EndocrinologyComment on above:Forms ([facility] [employer]- Physcians order)Start: 08-09-2024 End: 73-67-1825Lmeeqxpxr encounterKirsrosy Zavala APRN.CNP Work Phone: EndocrinologyComment on above:Forms ([facility] note)Start: 07-25-2024 End: 31-88-3702khjsnphhpfOIXPVI TRU TEJEDAFacility:[facility] Start: 07-25-2024 End: 37-58-1803Oycdpch evaluation of patient and reportGaye TorresCorpus Christi Medical Center Bay Area FHCComment on above: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, with long-term current use of insulin(HCC) (Primary Dx)Start: 07-21-2024 End: 68-76-5340Rwzchbrdm Result EncounterGeneric External Data ProviderNOMS External Department UnsolicitedStart: 07-21-2024 End: 45-00-3600Cjbtqsjsr Result EncounterGeneric External Data ProviderNOMS External Department UnsolicitedStart: 07-21-2024 End: 44-91-9911Zuoelwmaz encounterGaye TorresCorpus Christi Medical Center Bay Area FHCComment on above:AppointmentStart: 07-20-2024 End: 74-59-5548dmsootxjdpIUWVEI J VASCHAKNot AvailableStart: 07-20-2024 End: 20-34-5185Pglnlpnxlftd care manage srvc 7 day dischargeYomi Chong NP Work Phone: [facility] IMComment on above:Chronic systolic CHF (congestive heart failure), NYHA class 2 (CMS/HCC) (Primary Dx); Pancreatic insufficiency (CMS/HCC); History of bleeding peptic ulcer; Coronary arteriosclerosis (CMS/HCC); 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); Orthostatic hypotension; BronchitisStart: 46-08-8551Czl-patient / Non-visitRobert Vaschak DO Work Phone: [facility] Cardiology Work Phone: Start: 07-16-2024 End: 12-25-7642mphgkxyhuyIfwsqbvhj E DoamekporFacility:[facility] Hospitaltart: 07-16-2024 End: 04-22-7525Esypwztpbl and management of inpatientRobert Vaschak DO Work Phone: [facility] Work Phone: Start: 07-16-2024 End: 06-19-0650zkuggvxhzum encounterRobert Vaschak DO Work Phone: [facility] Work Phone: Start: 07-13-2024 End: 02-08-9118N-mail encounter from Hollie TorresCorpus Christi [facility] Area FHCStart: 07-13-2024 End: 81-68-4195Jnzbuzika encounterGaye Mata RNDiCorpus Christi Medical Center Bay Area FHCComment on above:Omnipod DASH to 5 pump upgradeStart: 07-13-2024 End: 04-25-8321uoeqtrxkxoMytfqn Kravetz RNDiCorpus Christi Medical Center Bay Area FHCStart: 07-13-2024 End: 84-78-4776Okxifq follow up visit related to original pxFredric H Itzkowinahomy DO Work Phone: noms ST GENSComment on above:Abdominal wall abscess (Primary Dx)Start: 07-06-2024 End: 93-50-5645Jiaqskalm encounterAyana Zavala APRN.CNP Work Phone: EndocrinologyStart: 07-06-2024 End: 67-25-9513gpbmsfivqkOUDHRQQ BAYERFacility:[facility] Daytontart: 07-06-2024 End: 95-63-3630Eehcgaq encounter Margaret Zavala APRN.CNP Work Phone: EndocrinologyComment on above: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, with long-term current use of insulin(HCC) (Primary Dx); 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); Insulin pump statusStart: 07-03-2024 End: 37-39-7681dtbwzolatrNFJMKC VARGAS VNot AvailableStart: 07-03-2024 End: 94-39-9058Sijvvz follow up visit related to original Charlotte Russo MD Work Phone: noms ST GENSComment on above:Abdominal wall abscess (Primary Dx)Start: 06-20-2024 End: 44-85-7143Juarctbe Result EncounterFredric H Itzkowitz DO Work Phone: noms External Department UnsolicitedStart: 06-20-2024 End: 00-91-8842Xojhxdzs Result EncounterFredric H Itzkowitz DO Work Phone: noms External Department UnsolicitedStart: 06-20-2024 Non-patient / Non-visitRobert Ileana DO Work Phone: [facility]-Heart Rhythm ClinicStart: 06-19-2024 End: 43-32-2042Hrgfewuxry and management of inpatientRobert Vasjorge DO Work Phone: [facility] Work Phone: Start: 06-19-2024 End: 79-61-8680ilcywunykhZobjvq JamakFacility:[facility] Hospitaltart: 06-19-2024 End: 93-63-3394Iyplfj outpatient visit 40 minutesRobert Khoi Tejeda DO Work Phone: [facility] IMComment on above:Abscess of abdominal wall (Primary Dx); ICD (implantable cardioverter-defibrillator) in place; H/O splenectomy; 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); Chronic systolic CHF (congestive heart failure), NYHA class 2 (CMS/HCC); Acquired total absence of pancreasStart: 06-19-2024 End: 86-91-4793qhvhzovgnoTHBSAP Khoi RAPPot AvailableStart: 06-16-2024 End: 78-92-8783Hayzstmhwe and management of inpatientRobert Ileana DO Work Phone: [facility] Work Phone: Start: 05-30-2024 End: 10-36-3581Jdvccjbrwviu care manage srvc 7 day dischargeRobert Khoi Tejeda DO Work Phone: [facility] IMComment on above:ICD (implantable cardioverter-defibrillator) in place (Primary Dx); Hospital discharge follow-up; 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); Acquired total absence of pancreas; Coronary arteriosclerosis (CMS/HCC); Insulin pump in place; 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); Moderate pulmonary arterial systolic hypertension (CMS/HCC); Nonrheumatic mitral valve regurgitation; Chronic systolic CHF (congestive heart failure), NYHA class 2 (CMS/HCC)Start: 05-30-2024 End: 31-79-6169mpqskxomfwIQEVTU J JAMAKNot AvailableStart: 64-68-2911Wye- patient / Non-visitRobert Vaschak DO Work Phone: [facility] Work Phone: Start: 05-24-2024 End: 03-51-5238Bfokoovtro and management of inpatientRobert Vaschak DO Work Phone: [facility] Work Phone: Start: 81-22-5110Awi-patient / Non-visitRobert Vaschak DO Work Phone: [facility]-Heart Rhythm ClinicStart: 05-16-2024 End: 89-98-9403Ztejogj encounter procedureDO Marie Tejeda Work Phone: [facility]-Pre-Surgical Testing Work Phone: Start: 05-16-2024 End: 00-41-9558bgzrxxbcknGM Marie Tejeda Work Phone: [facility] Work Phone: Start: 81-86-4091Ucynauukm for preprocedural laboratory examinationSSt. Mary Medical Center Physician GroupStart: 05-10-2024 End: 09-58-5638lllktdgacnNC Marie Tejeda Work Phone: [facility] Work Phone: Start: 05-10-2024 End: 37-76-8385Swuzwsn encounter procedureDO Marie Tejeda Work Phone: [facility] Work Phone: Start: 04-26-2024 End: 37-32-5469mgeskejmewPF Marie Tejeda Work Phone: [facility] Work Phone: Start: 04-26-2024 End: 41-97-1114Xgfexck encounter procedureDO Marie Tejeda Work Phone: [facility] Work Phone: Start: 04-26-2024 End: 38-65-8977Hcikodd encounter procedureDO Marie Yunbrody Work Phone: [facility]-Heart Rhythm ClinicStart: 04-26-2024 End: 09-24-9333kknnmpquixKJ Marie Tejeda Work Phone: [facility] Work Phone: Start: 04-24-2024 End: 30-84-2447Kpmulz outpatient visit 25 minutesAnatoly Anne NP Work Phone: noms SWS IMComment on above:Pancreatic insufficiency (CMS/HCC) (Primary Dx); Coronary arteriosclerosis (CMS/HCC); 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 (CMS/HCC); 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); H pylori ulcerStart: 04-17-2024 End: 28-73-1827Uiapqv outpatient visit 40 minutesMarie Westfall Xavijorge CURTIS [...] systolic congestive heart failure (CMS/HCC)Start: 04-17-2024 End: 17-50-8052Pwxteso encounter procedureRobert Khoi Tejeda DO Work Phone: noms HealthcareStart: 04-05-2024 End: 31-83-3510qvldqldiizZLNCPIQODayton VA Medical Center Start: 03-27-2024 End: 67-50-6382etzsvjigwoBV Marie Tejeda Work Phone: [facility] Work Phone: Start: 03-27-2024 End: 41-99-9935Ygufjih encounter procedureDO Marie Tejeda Work Phone: [facility] Work Phone: Start: 03-15-2024 End: 86-54-0168oldsturkkzBU Marie Tejeda Work Phone: [facility] Work Phone: Start: 03-15-2024 End: 79-06-4506Zxmpkrl encounter procedureDO Marie Tejeda Work Phone: [facility] Work Phone: Start: 03-10-2024 End: 64-88-9820xzdcvocscsHV Marie Tejeda Work Phone: [facility] Work Phone: Start: 03-10-2024 End: 18-84-3654Btecrpocbg RecurringDO Marie Tejeda Work Phone: [facility]-Infusion Therapy - O/P Work Phone: Start: 03-09-2024 End: 68-04-4039Uokcqwy encounter procedureDO Marie Tejeda Work Phone: [facility]-Electrodiagnostics Work Phone: Start: 03-09-2024 End: 23-54-2923ennycorbjaBU Marie Tejeda Work Phone: [facility] Work Phone: Start: 05-64-4530Six-patient / Non-visitDO Marie Xavijorge Work Phone: [facility] Work Phone: Start: 19-99-3973Xpwzmpjgqn RecurringDO Marie Hurleysunithabrody Work Phone: [facility]-Infusion Therapy - O/P Work Phone: Start: 02-29-2024 End: 14-18-7369qmfgsqbwuxWY Marie Hurleyjorge Work Phone: [facility] Work Phone: Start: 02-29-2024 End: 46-01-1314Xkmwyhk encounter procedureDO Marie Xavijorge Work Phone: [facility] Work Phone: Start: 02-16-2024 End: 59-24-1791keejjrlmnhSR Marie Tejeda Work Phone: [facility] Work Phone: Start: 02-16-2024 End: 87-07-3763Wbkwecn encounter procedureDO Marie Hurleysunithabrody Work Phone: [facility]-Lab Main [place] Work Phone: Start: 02-15-2024 End: 50-03-9651mxlfohdbcvUP Marie Hurleysunithabrody Work Phone: [facility] Work Phone: Start: 02-15-2024 End: 95-57-1030Qmjuihj encounter procedureDO Marie Tejeda Work Phone: [facility] Work Phone: Start: 02-14-2024 End: 14-26-4197lqzvschahaTM Marie Xavijorge Work Phone: [facility] Work Phone: Start: 02-14-2024 End: 87-87-5164Neiyijv encounter procedureDO Marie Tejeda Work Phone: [facility] [place] Work Phone: Start: 02-11-2024 End: 07-56-0233zapcnsemzaFC Marie Tejeda Work Phone: [facility] Work Phone: Start: 02-11-2024 End: 34-15-5698Rgpkaoc encounter procedureDO Marie Tejeda Work Phone: [facility] [place] Work Phone: Start: 03-10-6585Mqq-patient / Non-visitDO Marie Tejeda Work Phone: [facility] Work Phone: Start: 67-44-1073Yld-patient / Non-visitDO Marie Tejeda Work Phone: [facility] Work Phone: Start: 02-05-2024 End: 66-52-1423Nsgmqetfyu and management of inpatientDO Marie Tejeda Work Phone: [facility] Work Phone: Start: 01-24-2024 End: 72-78-0018zicvebdoodHIJX D BROOKENSProMedica Coram HospitalStart: 01-21-2024 End: 74-83-5710Jovpuwpstg and management of inpatientVENU GOSCOTTA Светлана EUCEDANA [facility] HospitalStart: 12-28-2023 End: 51-91-5255Idplbdvyy Result EncounterGeneric External Data ProviderNOMS External Department UnsolicitedStart: 12-28-2023 End: 70-86-8525Nkdbmftqp Result EncounterGeneric External Data ProviderNOMS External Department UnsolicitedStart: 53-26-7469Vgz-patient / Non-visitDO Marie Hurleyjorge Work Phone: [facility] Work Phone: Start: 11-11-2023 End: 65-03-7534Utubawgka to same day surgery centerDO Marie Hurleyjorge Work Phone: [facility]-Digestive Health Work Phone: Start: 11-04-2023 End: 71-81-4415zryfayaifqLwfo ProviderFacility:[facility] Systemtart: 10-28-2023 End: 47-96-9282gcwbnxwcimOG Marie Tejeda Work Phone: [facility] Work Phone: Start: 10-28-2023 End: 44-28-5750Mlndbej encounter procedureDO Marie Yunbrody Work Phone: [facility] Work Phone: Start: 10-21-2023 End: 31-69-4782cmcqtigklzMO Marie Tejeda Work Phone: [facility] Work Phone: Start: 10-21-2023 End: 45-13-4838Glzsbgo encounter procedureDO Marie Tejeda Work Phone: [facility]ology Work Phone: Start: 10-13-2023 End: 62-53-8140ittfulevfcAltd ProviderFacility:[facility] Systemtart: 09-28-2023 End: 00-28-8747ptzxgzbicdPM Marie Yunbrody Work Phone: [facility] Work Phone: Start: 09-28-2023 End: 96-61-7048Fohlnto encounter procedureDO Marie Yunbrody Work Phone: [facility] Neurosurgery Work Phone: start: 09-27-2023 End: 04-60-7408zwovugqvehDB Marie Tejeda Work Phone: [facility] Work Phone: Start: 09-27-2023 End: 62-13-6001Aagjcrbllc RecurringDO Marie Tejeda Work Phone: [facility]-Infusion Therapy - O/P Work Phone: Start: 09-24-2023 End: 45-99-1060gewimiiyznPT Marie Tejeda Work Phone: [facility] Work Phone: Start: 09-24-2023 End: 54-71-5658Pbmgcnm encounter procedureDO Marie Tejeda Work Phone: [facility]-XRay [facility] [place] Work Phone: Start: 25-89-9352Xhj-patient / Non-visitDO Marie Tejeda Work Phone: [facility] Work Phone: Start: 89-03-0614Skc-patient / Non-visitDO Marie Tejeda Work Phone: [facility] Work Phone: Start: 08-31-2023 End: 05-05-4708Gpbkckaglf and management of inpatientDO Marie Tejeda Work Phone: [facility] Work Phone: Start: 08-16-2023 End: 29-30-7735dovcbagnmpPEJBJ K SMITHMilwaukee [place] Other Start: 08-16-2023 End: 34-60-5834Noayob outpatient visit 15 minutesSammy Berman 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-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 Work Phone: [facility] Firenorth valley hospitalComment on above:Cardiomyopathy, ischemic (Primary Dx); ASHD (arteriosclerotic heart disease); BMI 20.0-20.9, adult; OrthopneaStart: 52-85-5790Gkdxvfzsd encounterLinda NjorogeFPG CardiologyStart: 07-27-2023 End: 69-24-6381tustscwjrpBL Marie Hurleyjorge Work Phone: [facility] Work Phone: Start: 07-27-2023 End: 77-02-5483Kejhimn encounter procedureDO Marie Yunbrody Work Phone: [facility] Start: 07-16-2023 End: 08-80-9151Ptzvkvyha to same day surgery centerDO Marie Hurleyjorge Work Phone: [facility]-Sales Engagement Executive Work Phone: Start: 07-16-2023 End: 91-95-6931tcwfbkxkfvQV Marie Hurleyjorge Work Phone: [facility] Work Phone: Start: 06-23-2023 End: 19-35-2591cuczrfilleKUBIY [facility] AmbulatoryStart: 06-22-2023 End: 04-63-6150hizmplarqyDzpsymw Howie Other [facility] [place] Other Start: 10-70-6757Iynokwgbh encounterColleen [facility]opedicsStart: 06-11-2023 End: 09-64-6446awhotelzanKM Marie Tejeda Work Phone: [facility] Work Phone: Start: 06-11-2023 End: 89-77-6671Ragsvdj encounter procedureDO Marie Yunbrody Work Phone: [facility] [place] [facility] Start: 06-02-2023 End: 86-57-9211psaumxkrisZPWAVES PROVIDERFacility:METROHealthStart: 05-26-2023 Telephone encounterColljace [facility] OrthopedicsStart: 05-26-2023 End: 65-41-8547ypqchhvqqlJX Marie Tejeda Work Phone: [facility] Work Phone: Start: 05-26-2023 End: 30-82-3280Twwirzu encounter procedureDO Marie Tejeda Work Phone: [facility] Start: 05-25-2023 End: 68-19-8120ylafhuucpgLLQNASZMcLaren [facility] AmbulatoryStart: 05-25-2023 End: 60-57-6064Worblg consultation new/estab patient 62 [address] [facility] [place] Work Phone: Citizens BaptistComment on above:NSTEMI (non-ST elevated myocardial infarction) (CMS/HCC) (Primary Dx); Abnormal stress test; ASHD (arteriosclerotic heart disease); Essential hypertension; Diabetes mellitus type II, non insulin dependent (CMS/HCC); Closed fracture of right hip, initial encounter (CMS/HCC)Start: 05-21-2023 End: 74-77-2700nfldsdcgzlGoosntt [place] Other [place] Other Start: 72-46-8331Olwgik follow up visit related to original pxCotrent Sena OrthopedicsStart: 05-21-2023 End: 33-68-0691Rfkunaz encounter procedureDO Marie Tejeda Work Phone: [facility] [place] [facility] Start: 05-03-2023 End: 37-26-1810Geoazcdbom and management of inpatientDO Marie Tejeda Work Phone: [facility] Work Phone: Start: 04-28-2023 End: 43-36-5194Xdplqsjntm and management of inpatientDO Marie Tejeda Work Phone: [facility] [place] [facility] Work Phone: Start: 04-23-2023 End: 64-53-8902hhnvqoldfdMjqn ProviderFacility:[facility] Systemtart: 04-12-2023 End: 77-08-6171Glzznjwhy Result EncounterGeneric External Data ProviderNOMS External Department UnsolicitedStart: 04-12-2023 End: 89-94-6742Rnsjfnsru Result EncounterGeneric External Data ProviderNOMS External Department UnsolicitedStart: 01-20-2023 End: 20-19-0910Usgpvqv encounter procedureAnatoly Anne ETCHER APPRENTICE Work Phone: [facility] HealthcareStart: 06-05-2022 End: 26-10-9645jqwwsfitujWU MARIE XAVIELYRIA MEMORIAL HOSPITALFacility:K7Npfxk: 15-52-6105Dpudhlmku for other specified special examinationsDR [facility] Start: 05-14-2022 End: 32-26-4977llnpsfczffCB MARIE [facility] Hospitalcility:A1Chear: 05-14-2022 End: 85-11-7091Ldxuqfzfb for other specified special examinationsDR [facility] Hospitalcility:Y8Xrmsp: 01-02-2022 End: 39-87-5125Nmugbcpgar and management of inpatientDELON CARRIONGreen Cross Hospitaltart: 01-02-2022 End: 78-50-1002Rlhxjuizpw and management of inpatientGray Ross MD Work Phone: stVZ 4B StepdownComment on above:Acute gastric ulcer with perforation (HCC) (Primary Dx); Gastric perforation (HCC)Start: 01-02-2022 End: 45-08-1554gvsectwcxlXX BENJAMIN BALLFacility:H1 Procedures DateProcedureProcedure DetailPerforming ClinicianStart: 67-79-2642NUFQgkebhg External Data ProviderStart: 70-49-3038NHTVczvclq External Data ProviderStart: 99-99-7787YKP GLUCOSE P FAST SERPL-MCNCGeneric External Data ProviderStart: 18-64-8411CNM PRO BNPGeneric External Data ProviderStart: 02-22-8312CLH CMP (CMP) (FOR REMOTE [facility] USE)Generic External Data ProviderStart: 02-13-2025 GLUTAMIC AC DECARBOXYLASE ABAyana Zavala APRN.LOAN REVIEW OFFICER Work Phone: Start: 55-40-8627BKK HEMOGLOBIN O2RQatrcvm External Data ProviderStart: 80-14-1631PMK GLUCOSE BLOODGeneric External Data Provider Start: 27-54-2525Cyggtpkwen bloodRobert J Vaschak DO Work Phone: Start: 11-26-9364Dqdodgakyi A1c/Hemoglobin.total in Kassidy Zavala APRN.LOAN REVIEW OFFICER Work Phone: Start: 41-18-0685PTM BASIC METABOLIC PANELGeneric External Data ProviderStart: 55-22-8721YFC PRO BNPGeneric External Data Provider Start: 22-62-8986UNN BASIC METABOLIC PANELGeneric External Data ProviderStart: 00-48-9593MUB PRO BNPGeneric External Data ProviderStart: 36-48-9984PGX BASIC METABOLIC PANELGeneric External Data ProviderStart: 23-60-0500Uotyqeghoyj Panel (PCR)Marie Vassunithak DO Work Phone: Start: 80-85-9673KQ angiography of thoraxRobert Vaschak DO Work Phone: Start: 47-59-6955Hrzhg chest X-rayRobert Vassunithak DO Work Phone: Start: 59-23-7237Dabr bld gluc mntr dev cleared fda spec home useKirsrosy Zavala APRN.LOAN REVIEW OFFICER Work Phone: Start: 81-24-6489ABBTWZ ON DEMANDCcf ProviderStart: 86-04-0785Sneifmmxvc A1c/Hemoglobin.total in Kassidy Zavala APRN.LOAN REVIEW OFFICER Work Phone: Start: 02-41-4111WnpmycikjsvHcdjas Vassunithak DO Work Phone: Start: 98-46-8185Evdxgbd microbial cultureRobert Vassunithak DO Work Phone: Start: 27-22-9390Mwljykfye microbial cultureRobert Vassunithak DO Work Phone: Start: 04-74-9853Riqq stain microscopyRobert Vassunithak DO Work Phone: Start: 23-94-6760DTZDYNK CULTUREFredric H Itzkowitz DO Work Phone: Start: 99-68-4202FVKUQXUMW CULTUREFredric H Itzkowitz DO Work Phone: Start: 55-05-7039Blrbvww microbial cultureRobert Jamak DO Work Phone: Start: 14-93-3345Jzrxzzyi identified in Blood by CultureRobert Vassunithak DO Work Phone: start: 08-18-6969GJ of abdomen with contrastRobert Ileana DO Work Phone: Start: 08-84-1144Szqok chest X-rayRobert Ileana DO Work Phone: Start: 52-24-5289Dhzoqgeohcql of cardiac pacemaker Marie Tejeda DO Work Phone: Start: 98-30-9486Olvpifyrjp glycosylated x9rMznnph Khoi Tejeda DO Work Phone: Start: 10-30-4023JirnpdufbhhrnmzleckugnfzytZZ Marie Tejeda Work Phone: Start: 80-72-5331IU cervical spine without contrastDO Marie Tejeda Work Phone: Start: 75-87-0831NY of head without contrastDO Marie Tejeda Work Phone: Start: 49-07-9711Jcial chest X-rayDO Marie Tejeda Work Phone: Start: 42-49-5566Adzqi Occult Blood (DORON)DO aMrie Tejeda Work Phone: Start: 60-84-6170Zmb spinal canal cervical w/o contrast matrlGeneric External Data ProviderStart: 11-11-2023 EsophagogastroduodenoscopyDO Marie Tejeda Work Phone: Start: 80-00-7370O-ray of cervical spineDO Marie Tejeda Work Phone: Start: 44-16-0627H-ray of cervical spineDO Marie Tejeda Work Phone: Start: 52-17-5959YRVFSG UP IN CARDIOLOGYNEW ENGLAND REHABILITATION HOSPITAL AT LOWELL SHELDONStart: 68-40-7565Hkula X-ray of right hipDO Marie Tejeda Work Phone: Start: 59-86-9337LF PCI WORK CAR OPERATOR Ea Add LADDO Marie Tejeda Work Phone: Start: 33-40-5618MH Stent 1st Vessel LAD DESDO Marie Tejeda Work Phone: Start: 37-90-7104SZZUNV UP IN CARDIOLOGYNEW ENGLAND REHABILITATION HOSPITAL AT LOWELL SHELDONStart: 15-49-5955Kfcna X-ray of right femurDO Marie Tejeda Work Phone: Start: 49-88-0903FHW 12-LEADNEW ENGLAND REHABILITATION HOSPITAL AT LOWELL SHELDONStart: 54-41-4144Qva routine ecg w/least 12 lds w/i&rWilliam S Ryan DO Work Phone: Start: 95-87-4202Vcknq X-ray of right hipDO Marie Tejeda Work Phone: Start: 04-30-2023 End: 7199Eipie X-ray of right hipDO Marie Tejeda Work Phone: Start: 97-43-6104Cfpy reduction of fracture with internal fixationDO Marie Tejeda Work Phone: Start: 38-38-9182Bfeup chest X-rayDO Marie Tejeda Work Phone: Start: 10-81-0226XZ LHC & COR AngioDO Marie Tejeda Work Phone: Start: 80-52-6308Owbm reduction of fracture with internal fixationDO Marie Tejeda Work Phone: Start: 37-98-0699Hxyah chest X-rayDO Marie Tejeda Work Phone: Start: 77-78-1492Iorfv X-ray of right femurDO Marie Tejeda Work Phone: Start: 72-78-0400Wzmvt X-ray of right hipDO Marie Tejeda Work Phone: Start: 83-78-4931HG RENAL AND BLADDERGeneric External Data ProviderStart: 41-47-7956Fkozc of magnesiumBreana Johnson MD Work Phone: Start: 79-74-5089DNHTD METABOLIC PANEL W/ REFLEX TO MG FOR LOW KMatthew T Slack DO Work Phone: Start: 32-77-8111ZFSDPMEU PLATELET FRACTIONBreana Johnson MD Work Phone: Start: 51-73-7902Cxbkc of phosphorus inorganicMatthew T Slack DO Work Phone: Start: 20-00-1283BVNGF METABOLIC PANEL W/ REFLEX TO MG FOR LOW KMatthew T Slack DO Work Phone: Start: 70-75-1508XIEBOUDM PLATELET FRACTIONBreana Johnson MD Work Phone: Start: 56-26-3152Vflqemivsz exam upr gi trc single contrast Jose Johnson MD Work Phone: Start: 87-11-2660Qkems of magnesiumKings Francis MD Work Phone: Start: 47-79-0594VKZBE METABOLIC PANEL W/ REFLEX TO MG FOR LOW KAarocayla Francis MD Work Phone: Start: 10-82-1540USFUOPJP PLATELET FRACTIONBreana Johnson MD Work Phone: Start: 50-99-1230Litjz of magnesiumAaron N Andrea OGLESBY Work Phone: Start: 83-66-6383KMEKH METABOLIC PANEL W/ REFLEX TO MG FOR LOW KAaron N Andrea OGLESBY Work Phone: Start: 31-79-6369Aotkr of phosphorus inorganicKings Francis MD Work Phone: Start: 22-66-3079YIKJD METABOLIC PANEL W/ REFLEX TO MG FOR LOW KAaron N Andera OGLESBY Work Phone: Start: 02-39-5804Tblmh of magnesiumAaron Cayla Francsi MD Work Phone: Start: 84-93-5317YUGFW METABOLIC PANEL W/ REFLEX TO MG FOR LOW KAaron N Andrea OGLESBY Work Phone: Start: 31-50-2335Ojhys of phosphorus inorganicAaron N Andrea OGLESBY Work Phone: Start: 49-13-2282MHUQM METABOLIC PANEL W/ REFLEX TO MG FOR LOW KAaron N Andrea OGLESBY Work Phone: Start: 01-04-2022 End: 60-77-1287Vorgm of phosphorus inorganicAaron N Andrea OGLESBY Work Phone: Start: 76-75-9614CZJYU METABOLIC PANEL W/ REFLEX TO MG FOR LOW KAaron N Andrea OGLESBY Work Phone: Start: 23-85-6860Fcnbaxj blood reagent stripDelon Carrion DOStart: 01-04-2022 End: 02-13-2102Zfaqm of phosphorus inorganicAaron Cayla Francis MD Work Phone: Start: 76-26-9543CRTGU METABOLIC PANEL W/ REFLEX TO MG FOR LOW KAaron N Andrea OGLESBY Work Phone: Start: 01-03-2022 End: 43-78-7397Ximpr of phosphorus inorganicAaron Cayla Francis MD Work Phone: Start: 21-18-4492ECHDX METABOLIC PANEL W/ REFLEX TO MG FOR LOW KAaron N Andrea OGLESBY Work Phone: Start: 01-03-2022 End: 85-58-7849Zxqxdxk blood reagent stripDelon Carrion DOStart: 01-03-2022 Glucose blood reagent stripDelon Carrion DOStart: 01-03-2022 End: 14-66-0647Avcqd of phosphorus Jung Francis MD Work Phone: Start: 88-41-2260HIXCI METABOLIC PANEL W/ REFLEX TO MG FOR LOW Jessicacayla Francis MD Work Phone: Start: 01-03-2022 End: 92-66-2680Iiomiio blood reagent stripDelon Carrion DOStart: 01-03-2022 Glucose blood reagent stripDelon Carrion DOStart: 01-03-2022 End: 39-70-7311Uzfke of phosphorus Jung Francis MD Work Phone: Start: 47-75-1442KCCSA METABOLIC PANEL W/ REFLEX TO MG FOR LOW Palmira Francis MD Work Phone: Start: 01-03-2022 End: 94-37-5387Yhskk of phosphorus Jung Francis MD Work Phone: start: 56-89-6484AINJH METABOLIC PANEL W/ REFLEX TO MG FOR LOW KISHANmilena Francis MD Work Phone: Start: 01-03-2022 End: 72-51-8024Stoormt blood reagent stripDelon Carrion DOStart: 01-03-2022 End: 59-34-1615Zafdz of phosphorus Jung Francis MD Work Phone: Start: 93-01-5153YEULJ METABOLIC PANEL W/ REFLEX TO MG FOR LOW KISHANmilena Francis MD Work Phone: Start: 01-03-2022 End: 70-22-2249Mzbfwoj blood reagent stripDelon Carrion DOStart: 01-02-2022 Glucose blood reagent stripDelon Carrion DOStart: 01-02-2022 End: 97-88-3238Hllgpqo blood reagent stripJohn J Leskovan DOStart: 01-02-2022 Radiologic exam abdomen 1 viewTricia Ange DOStart: 10-05-8854Zloikiu bacterial quanttative colony count urineTristan Bueno DO Work Phone: Start: 01-02-2022 End: 20-46-7493Hcuqdyk blood reagent stripDelon Carrion DOStart: 01-02-2022 End: 60-53-5073ZVTNZ RESECTION HEMICOLECTOMY LAPAROSCOPIC ROBOTICTristan Bueno DO Work Phone: Start: 01-02-2022 End: 88-77-3764SIG DIAGNOSTIC ONLYTristan Bueno DO Work Phone: Start: 86-43-3552Afrcr metabolic panel calcium total Breana Johnson MD Work Phone: Start: 39-15-6567Jgdlfqs function panelBreana Johnson MD Work Phone: Start: 89-86-9033BBMGJFQ, SEPSISJumarianne Johnson MD Work Phone: Start: 55-40-6368Rksisqy blood reagent stripGray Ross MD Work Phone: Start: 12-30-2019H/O splenectomyH/O splenectomyYuerong Cally ETCHER APPRENTICE Work Phone: AppendectomyTristan MELCHOR Cardiac pacemaker, device (physical object)Tristan MELCHOR Extraction of cataractTristan MELCHOR H/O splenectomyH/O splenectomyRobert J Vaschak DO Work Phone: H/O splenectomyH/O splenectomyRobert J Vaschak DO Work Phone: H/O splenectomyH/O splenectomyRobert J Vaschak DO Work Phone: H/O splenectomyWalkerory JULIO H/O splenectomyH/O splenectomyAmy Warchol ETCHER APPRENTICE Work Phone: PancreatectomyTristan MELCHOR Placement of stent in cardiac conduitTristan MELCHOR TonsillectomyTristan MELCHOR Plan of Treatment DateCare ActivityDetailAuthorStart: 94-07-0922Lfbzg microalbumin profile DTaP,Tdap,Td Vaccine (4 - Td or Tdap)[facility]28 DTaP/Tdap/Td vaccine (3 - Td or Tdap)DTaP/Tdap/Td vaccine (3 - Td or Tdap)[facility]: 08-17-3345YZxQ/Tdap/Td Vaccines (3 - Td or Tdap) DTaP/Tdap/Td Vaccines (3 - Td or Tdap)[facility] CenterStart: 52-62-0564Mzxlhebe ScreeningDiabetes ScreeningParkview [facility]althtart: 09-25-2025 Hepatitis B screeningUrine Albumin:Creatinine RatioParkview Healthtart: 15-66-4039Zdweqeyxe B surface antibody levelLDL CholesterolOhiohealth Grove City Methodist Hospital Start: 41-89-3063Fpjsm screening for proteinDiabetes: Urine Protein Screening [facility] HealthcareStart: 51-43-1792Aghphdmuof A1c measurementDiabetes: Hemoglobin V6YWRXW HealthcareStart: 06-21-2025 End: 52-67-2086Klttkdj encounter /11/2025 1:00 PM EST Office Visit [facility] [address] [place] [address] Marga Robledo NP [address] [place] [address] [facility]Start: 10-07-2025Medicare Annual Wellness (AWV)Medicare Annual Wellness (AWV)[facility] HealthcareStart: 04-09-2025 End: 39-47-2033Jtpwqdm encounter obnuvprpz98/29/2025 2:00 PM EDT Office Visit Endocrinology [address] [place], [place] [id number] Ayana Zavala APRN.LOAN REVIEW OFFICER [address] [place] [address] *R/S from 01/25EndocrinologyComment on above:*R/S from 01/25Start: 94-25-2465WaixbqqThe [facility] Work Phone: Start: 66-33-0523PDHZI-19 Vaccine ( season) COVID-19 Vaccine ( season)[facility] HealthcareStart: 59-33-6347Xdgbboysi vaccinationInfluenza Vaccine (#1)[facility] HealthcareStart: 02-06-2025 End: 98-96-0749Risnasptf decarboxylase 65 Ab [Units/volume] in SerumGLUTAMIC AC DECARBOXYLASE AB Lab Routine 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, with long-term current use of insulin ([facility]) Expected: 02/06/2025, Expires: 05/08/2025UC HealthComment on above:Expected: 02/06/2025, Expires: 05/08/2025Start: 02-06-2025 End: 51-59-0932Hfuuhfrzft A1c in BloodHEMOGLOBIN A1C Lab Routine 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, with long-term current use of insulin (HCC) Expected: 02/06/2025, Expires: 05/08/2025[facility] Work Phone: Comment on above:Expected: 02/06/2025, Expires: 05/08/2025Start: 02-05-2025 End: 05-07-2025 peptide [Mass/volume] in Serum or PlasmaC-PEPTIDE BLD Lab Routine 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, with long-term current use of insulin (HCC) Expected: 02/05/2025, Expires: 05/07/2025 [facility] HospitalComment on above:Expected: 02/05/2025, Expires: 05/07/2025Start: 02-05-2025 End: 95-63-0059Zkmfspw glucose [Mass/volume] in Serum or PlasmaGLUCOSE, FASTING Lab Routine 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, with long-term current use of insulin (HCC) Expected: 02/05/2025, Expires: 05/07/2025 [facility] Work Phone: Comment on above:Expected: 02/05/2025, Expires: 05/07/2025Start: 53-12-4688Inqebrxysd A1c measurementParkview Healthtart: 01-25-2025 End: 09-42-0606Brpkpwq encounter feilhasbw85/17/2025 2:00 PM EDT Office Visit Endocrinology [address] [facility] [place] [address] Ayana Zavala, LOG MARKER.LOAN REVIEW OFFICER [address] [place] [address] 2 month follow up DMEndocrinologyComment on above:2 month follow up DMStart: 01-16-2025 End: 85-83-0564Lqacgtekrpnw / ancillary services ylcurpxobb25/08/2025 11:30 AM EDT Ancillary Procedure [facility] [address] [place] [address] [address]Start: 01-03-2025 End: 60-98-5474Kojpaltjyo [Mass/volume] in Serum or PlasmaCreatinine, Serum Lab Routine Pleurisy Expected: 01/03/2025 (Approximate), Expires: 01/03/2026NOVT HealthcareComment on above:Expected: 01/03/2025 (Approximate), Expires: 01/03/2026Start: 01-03-2025 End: 08-34-2798HEU Chest vessels WO and W contrast IVCT angiogram chest Imaging Routine Pleurisy Expected: 01/03/2025 (Approximate), Expires: 04/05/2025[facility] Work Phone: Comment on above:Expected: 01/03/2025 (Approximate), Expires: 04/05/2025Start: 56-54-7320Xeklsnoh screeningDiabetes: Retinopathy ScreeningUT[facility]LEY [facility] HealthcareStart: 38-61-3236Efdta-19 Vaccine ( season) Covid-19 Vaccine ( season)[facility]: 10-26-2024 End: 25-15-4056Kmskdot encounter ymrybvybd88/17/2025 12:15 PM EDT Office Visit Endocrinology [address] [facility] [place] [address] Ayana Zavala, LOG MARKER.LOAN REVIEW OFFICER [address] [place] [address] Return in about 4 weeks (around 10/23/2024). EndocrinologyComment on above:Return in about 4 weeks (around 10/23/2024).Start: 37-59-1603Oyffvjdtrc A1c measurementHannibal Regional HospitalStart: 09-25-2024 End: 48-56-4322Dysuiiu encounter ocmxfpewn07/17/2025 2:30 PM EDT Office Visit Endocrinology [address] [facility] [place] [address] Ayana Zavala, LOG MARKER.LOAN REVIEW OFFICER [address] [place] [address] Return in about 6 weeks (around 08/17/2024). EndocrinologyComment on above:Return in about 6 weeks (around 08/17/2024).Start: 09-25-2024 End: 47-92-8518Zgqqytrfdktpa metabolic 2000 panel - Serum or PlasmaBlanchard Valley Health System Work Phone: Comment on above:Expected: 09/25/2024, Expires: 12/25/2024Start: 09-25-2024 End: 63-62-4054AKBJY PANEL, NONFASTINGOhiohealth Grove City Methodist HospitalComment on above:Expected: 09/25/2024, Expires: 12/25/2024Start: 09-25-2024 End: 62-27-2786Nuawtniinbvj/Creatinine [Mass Ratio] in UrineOhiohealth Grove City Methodist Hospital Comment on above:Expected: 09/25/2024, Expires: 12/25/2024Start: 16-98-1172Kfzti screening for proteinDiabetes: Urine Protein ScreeningHannibal Regional HospitalStart: 09-04-2024 End: 76-51-0373Uninvyu evaluation of patient and njdhnz5409/04/2024 1:00 PM EST Nurse Visit [facility] [address] [place] [address] Gaye Mata, KARIN Omnipod DASH to Omnipod 5 upgrade with Dexcom G7 trainingDiMemorial Hermann Orthopedic & Spine HospitalCComment on above:Omnipod DASH to Omnipod 5 upgrade with Dexcom G7 trainingStart: 08-29-2024 End: 33-15-0500Ofgugqm encounter sufvvzbah13/18/2025 1:30 PM EST Office Visit Endocrinology [address] [place] [address] Ayana Zavala, AMADA.LOAN REVIEW OFFICER [address] [place] [address] Return in about 6 weeks (around 08/17/2024). EndocrinologyComment on above:Return in about 6 weeks (around 08/17/2024).Start: 08-18-2024 End: 41-26-7971Eedbgmy encounter jcriwwuie03/07/2025 8:30 AM EST Office Visit Endocrinology [address] [place] [address] Ayana Zavala, LOG MARKER.LOAN REVIEW OFFICER [address] [place] [address] Return in about 6 weeks (around 08/17/2024). EndocrinologyComment on above:Return in about 6 weeks (around 08/17/2024).Start: 08-02-2024 End: 55-25-6039Vzaflzq encounter beopnqpej10/22/2025 10:00 AM EST Office Visit [facility] [address] [place] [phone] Marie Tejeda DO [address] [place] [address] [facility] IMStart: 07-25-2024 End: 70-03-6630Tiaoooi evaluation of patient and nrefjx4407/25/2024 1:00 PM EST Nurse Visit [facility] [address] [place] [address] Gaye Mata, RN Omnipod 5 upgrade from PaeDae with Dexcom G6 CGM. Needs carb counting. Coming from [place], [place] with Diabetic [facility] FHCComment on above:Omnipod 5 upgrade from PaeDae with Dexcom G6 CGM. Needs carb counting. Coming from [place], [place] with Start: 07-20-2024 End: 63-29-4758Higxe metabolic 1998 panel - Serum or PlasmaBasic metabolic panel Lab Routine Chronic systolic CHF (congestive heart failure), NYHA class 2 ([facility]) Expected: 07/20/2024 (Approximate), Expires: 07/24/2024[facility]eynolds [facility] Work Phone: Comment on above:Expected: 07/20/2024 (Approximate), Expires: 07/24/2024Start: 21-52-7159Flgsufotol A1c measurementDiabetes: Hemoglobin U5XCGZDHannibal Regional HospitalStart: 07-17-2024 End: 02-99-2313HrbiaupksGrand Lake Joint Township District Memorial Hospitaltart: 54-60-2135Vvtlixib to cardiologistGrand Lake Joint Township District Memorial Hospitaltart: 10-98-3601Lzycujmxcfc pathogens DNA and RNA panel - Nasopharynx by ANASTASIA with non-probe detection [facility] Hospitaltart: 18-92-1759Xmrarkbo therapy procedure [facility] Hospitaltart: 54-41-1702Ovkcwouv to occupational therapistGrand Lake Joint Township District Memorial Hospitaltart: 25-22-8166YucdvevcaGrand Lake Joint Township District Memorial Hospitaltart: 74-90-9338Yxhugrgu admissionGrand Lake Joint Township District Memorial Hospitaltart: 07-13-2024 End: 96-03-0595Btipgrv encounter ynbmzjmbr73/02/2025 10:45 AM EST Office Visit [facility] [address] [facility] [address] [place] [phone] Stephanie [place]idan DO [address] [facility] [address] [place] [address] NOMKasey NAIKtart: 89-29-8701Hqcddek Directive DiscussionAdvance Directive DiscussionParkview Healthtart: 07-03-2024 End: 67-14-1369Ufglqkv encounter yussicvqo53/23/2024 9:00 AM EST Office [facility] [address] [place] [address] Beto Russo MD [address] [place] [address] ALDRICHtart: 20-22-4318MiqpigtyzUniversity Hospitals Tripoint Medical Center Start: 34-67-7059Ibtfxpmo to general surgeonUniversity Hospitals Tripoint Medical Center Start: 24-60-4520Sifhmufi admissionGrand Lake Joint Township District Memorial Hospitaltart: 06-19-2024 End: 36-30-7570Uunjbvq encounter qxehcdfml65/09/2024 3:00 PM EST Office Visit [facility] [address] [place] [phone] Marie Tejeda DO [address] [place] [address] [facility] IMStart: 06-18-2024 End: 90-97-4928TiqjhvofvGrand Lake Joint Township District Memorial Hospitaltart: 87-71-9333PtsydceemGrand Lake Joint Township District Memorial Hospitaltart: 14-51-2228Grbsdwxp admissionGrand Lake Joint Township District Memorial Hospitaltart: 33-00-4958Vfvzters to infectious diseases physician [facility] Hospitaltart: 85-36-6721Kdbkunxn of Abdomen Subcutaneous Tissue and Fascia, Open ApproachDrainage of Abdomen Subcutaneous Tissue and Fascia, Open ApproachGrand Lake Joint Township District Memorial Hospitaltart: 00-76-8942RxqujdynqGrand Lake Joint Township District Memorial Hospitaltart: 85-08-7960Btnlwpso admission [facility] Hospitaltart: 07-76-4054KehecpgouGrand Lake Joint Township District Memorial Hospitaltart: 52-60-3079QzrytjjogClinton Memorial Hospital CenterStart: 05-24-2024 Insertion of Defibrillator Generator into Chest Subcutaneous Tissue and Fascia, Open ApproachInsertion of Defibrillator Generator into Chest Subcutaneous Tissue and Fascia, Open ApproachGrand Lake Joint Township District Memorial Hospitaltart: 05-24-2024 Insertion of Defibrillator Lead into Right Atrium, Percutaneous Approach Insertion of Defibrillator Lead into Right Atrium, Percutaneous Approach [facility] Hospitaltart: 08-39-6236Ecbqloimb of Defibrillator Lead into Right Ventricle, Percutaneous ApproachInsertion of Defibrillator Lead into Right Ventricle, Percutaneous ApproachUniversity Hospitals Tripoint Medical Center Start: 08-66-8930NbzfnrbajGrand Lake Joint Township District Memorial Hospitaltart: 43-95-5868PfvsrdtexGrand Lake Joint Township District Memorial Hospitaltart: 83-95-1737Wstkizyn to gastroenterologistGrand Lake Joint Township District Memorial Hospitaltart: 58-12-8822Rvahpvdo admissionGrand Lake Joint Township District Memorial Hospitaltart: 41-79-1123UQ cervical spine without contrastCT cervical spine wo [facility]ertart: 33-51-8600ZV Cervical spine WO contrastGrand Lake Joint Township District Memorial Hospitaltart: 43-39-1023NI of head without contrastCT head/brain wo [facility] Centertart: 34-53-7484QT Unspecified body region WO [facility]ightart: 68-68-2456Gowaf chest X-rayXR chest 1V portableUniversity Hospitals Tripoint Medical Center Start: 84-28-9782QA Chest Single viewGrand Lake Joint Township District Memorial Hospitaltart: 26-46-1255Fbjkayk Bleeding in Gastrointestinal Tract, Via Natural or Artificial Opening EndoscopicControl Bleeding in Gastrointestinal Tract, Via Natural or Artificial Opening EndoscopicClinton Memorial Hospital CenterStart: 11-11-2023 [facility] CenterStart: 41-86-2652DwmlpsazdClinton Memorial Hospital CenterStart: 61-60-2043Evnwkukj to rehabilitation physicianGrand Lake Joint Township District Memorial Hospitaltart: 21-88-8285Xrqxoufm admissionGrand Lake Joint Township District Memorial Hospitaltart: 92-94-7802NelstpraqlvzAubhpnydiGrand Lake Joint Township District Memorial Hospitaltart: 02-63-3183Htubmfph to gastroenterSelect Medical Specialty Hospital - Youngstowntart: 42-03-3263Ifrkwbe Bleeding in Gastrointestinal Tract, Via Natural or Artificial Opening EndoscopicControl Bleeding in Gastrointestinal Tract, Via Natural or Artificial Opening EndoscopicGrand Lake Joint Township District Memorial Hospitaltart: 08-31-2023 Excision of Esophagus, Via Natural or Artificial Opening Endoscopic, Diagnostic Excision of Esophagus, Via Natural or Artificial Opening Endoscopic, Diagnostic [facility] Hospitaltart: 09-77-5459Oseocjzz of Stomach, Pylorus, Via Natural or Artificial Opening Endoscopic, DiagnosticExcision of Stomach, Pylorus, Via Natural or Artificial Opening Endoscopic, DiagnosticGrand Lake Joint Township District Memorial Hospitaltart: 08-16-2023 End: 74-19-7254Dnziz metabolic 2000 panel - Serum or PlasmaBasic Metabolic Panel Lab Routine Cardiomyopathy, ischemic Expected: 08/16/2023 (Approximate), Expir es: 08/16/2024[facility] Work Phone: Comment on above:Expected: 08/16/2023 (Approximate), Expires: 08/16/2024Start: 08-16-2023 End: 78-47-2156Japssxkedup peptide B [Mass/volume] in BloodB-Type Natriuretic Peptide Lab Routine Cardiomyopathy, ischemic Orthopnea Expected: 08/16/2023 (Approximate), Expires: 08/16/2024[facility] Service [facility] Work Phone: Comment on above:Expected: 08/16/2023 (Approximate), Expires: 08/16/2024Start: 07-16-2023 End: 60-71-8658DbvssarudGrand Lake Joint Township District Memorial Hospitaltart: 57-70-0226JWKQV-19 Vaccine (3 - Moderna series)COVID-19 Vaccine (3 - Moderna series)[facility] CenterStart: 46-14-3560Yszjxxp Directive DiscussionAdvance Directive DiscussionParkview Healthtart: 06-23-2023 End: 48-02-9165Wkkgvwk encounter rowwyuima80/13/2023 2:00 PM EST Office Visit [facility] [address] [facility] [address] [place] [address] Sammy Berman, LOG MARKER-LOAN REVIEW OFFICER [address] [facility] [address] [place] [address] [facility]Start: 05-33-9154Eypzl screening for protein Diabetes: Urine Protein ScreeningHannibal Regional HospitalStart: 62-90-2930VbncxktrzClinton Memorial Hospital CenterStart: 29-65-9843Mycuodfgpphjnf of prophylactic treatment [facility] CenterStart: 32-52-0642Lzrqisyf admissionClinton Memorial Hospital CenterStart: 46-27-0043Pigohfwe to clinical allergistClinton Memorial Hospital CenterStart: 64-44-2992GrxxqnyoeClinton Memorial Hospital CenterStart: 67-39-3700Nofkjbxy to rehabilitation physicianUniversity Hospitals Tripoint Medical Center Start: 00-88-6382Iltge chemistryClinton Memorial Hospital CenterStart: 80-92-7112WwvyqodkyClinton Memorial Hospital CenterStart: 40-20-9432Oasnq chemistry [facility] CenterStart: 52-60-4050OoondpemiClinton Memorial Hospital CenterStart: 60-58-5098Gapzeebp to Social ServicesGrand Lake Joint Township District Memorial Hospitaltart: 69-90-5511Yibfl chemistryClinton Memorial Hospital CenterStart: 04-30-2023 End: 27-15-7312JjcgatqpgClinton Memorial Hospital CenterStart: 10-19-2023Medicare Annual Wellness (AWV)Medicare Annual Wellness (AWV)[facility] HealthcareStart: 04-29-2023 Blood chemistryClinton Memorial Hospital CenterStart: 45-63-1059Fafnh panel [facility] CenterStart: 83-77-3771HzbfvtttcGrand Lake Joint Township District Memorial Hospitaltart: 19-96-6430DamvpjrbeClinton Memorial Hospital CenterStart: 04-28-2023 Hospital admissionClinton Memorial Hospital CenterStart: 24-30-9392IuwjyuczuClinton Memorial Hospital CenterStart: 95-89-6397Tbxhsbnt admissionClinton Memorial Hospital CenterStart: 33-99-3618KgrapnebsmdyKfsldjckkUniversity Hospitals Tripoint Medical Center Start: 43-15-1277Uainsbyb to cardiologistClinton Memorial Hospital CenterStart: 04-28-2023 End: 29-47-4433LrvglmbsjClinton Memorial Hospital CenterStart: 69-39-2314Itmalwlhmiz of Left Heart using Low Osmolar ContrastFluoroscopy of Left Heart using Low Osmolar ContrastGrand Lake Joint Township District Memorial Hospitaltart: 09-13-9110Jphrbpajpue of Multiple Coronary Arteries using Low Osmolar ContrastFluoroscopy of Multiple Coronary Arteries using Low Osmolar ContrastUniversity Hospitals Tripoint Medical Center Start: 50-23-9021Iogsvysrg of Intramedullary Internal Fixation Device into Right Upper Femur, Percutaneous ApproachInsertion of Intramedullary Internal Fixation Device into Right Upper Femur, Percutaneous ApproachGrand Lake Joint Township District Memorial Hospitaltart: 32-24-1799Rkodukyxdoq of Cardiac Sampling and Pressure, Left Heart, Percutaneous ApproachMeasurement of Cardiac Sampling and Pressure, Left Heart, Percutaneous ApproachGrand Lake Joint Township District Memorial Hospitaltart: 04-04-2022 Hemoglobin A1c measurementDiabetes: Hemoglobin W0HObeglzuolrClermont County Hospital: 87-00-3354Pukswtxb vaccine (2 of 2)Shingles vaccine (2 of 2)[facility]: 88-74-5019GXWTG-19 Vaccine (3 - Booster for Moderna series)COVID-19 Vaccine (3 - Booster for Moderna series)[facility] Start: 75-27-6993Uksysvgeayhcp B Vaccine (3 of 4 - Increased Risk Bexsero 2-dose series)Meningococcal B Vaccine (3 of 4 - Increased Risk Bexsero 2-dose series) [facility]: 38-94-8116Lytkkemavgocc B Vaccine (3 of 4 - Increased Risk Bexsero 3-dose series)Meningococcal B Vaccine (3 of 4 - Increased Risk Bexsero 3-dose series)[facility] HospitalStart: 09-15-2018 DTaP/Tdap/Td Vaccines (3 - Td or Tdap)DTaP/Tdap/Td Vaccines (3 - Td or Tdap)[facility] HospitalStart: 09-01-2002Medicare Annual Wellness VisitMedicare Annual Wellness VisitParkview Healthtart: 29-35-8132Snwav screening for protein Diabetes: Urine Protein ScreeningClermont County Hospital: 05-15-4255Rnuzaom ScreeningAnxiety ScreeningParkview Healthtart: 1955 Depression ScreeningDepression ScreeningRegional Medical Centerrt: 1955 Hepatitis B surface antibody levelLDL CholesterolParkview Healthtart: 05-50-7075Kxtfazmsem ScreenDepression ScreenBON [facility] Hospitalart: 39-43-2294Tprvjzze foot examinationClermont County Hospital: 45-70-5637Nqzeknsx screeningClermont County Hospital: 1947 Hepatitis B screeningUrine Albumin:Creatinine [facility]The [facility]: 92-39-7504Ivczvlskzxovm B Vaccine (1 of 4 - Increased Risk)Meningococcal B Vaccine (1 of 4 - Increased Risk)[facility]: 09-24-6281Igraozwqtxofq Vaccine (1 - Risk 2-dose series)Meningococcal Vaccine (1 - Risk 2-dose series)[facility]: 64-36-3575DOT Vaccines (1 of 1 - Risk 1-dose series)HIB Vaccines (1 of 1 - Risk 1-dose series) [facility]: 55-79-4880Bruibl Wellness Visit (AWV) Annual Wellness Visit (AWV)[facility]: 66-33-8591Scwlw panel Lipid PanelUnWyandot Memorial Hospital: 1937Medicare Annual Wellness VisitMedicare Annual Wellness Visit (AWV)[facility]: 46-28-0490Gdnskuuxx for osteoporosisBone Density ScanUnUniversity Hospitals Parma Medical CenterAEROBIC CULTUREAEROBIC CULTURE Lab Routine 06/20/2024 10:18 AM [employer] Work Phone: ANAEROBIC CULTUREANAEROBIC CULTURE Lab Routine 06/20/2024 10:18 AM [facility] w/ Reflex to MGBasic Metabolic Panel w/ Reflex to MG Lab Routine Daily until discontinued starting 01/06/2022, 2 completed[facility] [employer] Phone: comment on above:Daily until discontinued starting 01/06/2022, 2 completedCBC W Auto Differential panel - BloodCBC with Auto Differential Lab Routine Daily until discontinued starting 01/03/2022, 5 completed[facility] [employer] Phone: comment on above:Daily until discontinued starting 01/03/2022, 5 completedComprehensive metabolic 2000 panel - Serum or Plasma [facility] CenterGlucose [Mass/volume] in Serum or PlasmaPOCT Glucose Point of Care Testing STAT As Needed until discontinued starting 01/02/2022[facility] [employer] Phone: comment on above:As Needed until discontinued starting 01/02/2022Glucose [Mass/volume] in Serum or PlasmaPOCT glucose Point of Care Testing Routine Now Then Every 4hr until discontinued starting 01/03/2022 [email or web address] Phone: comment on above:Now Then Every 4hr until discontinued starting 01/03/2022Glucose [Mass/volume] in Serum or PlasmaGLUCOSE, BLOOD (POC) Lab Routine 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, with long-term current use of insulin (HCC) [facility]: Comment on above:Ordered: 07/06/2024Glucose measurement estimated from glycated hemoglobinUniversity Hospitals Tripoint Medical Center Helicobacter pylori Ag [Presence] in Stool by ImmunoassayUniversity Hospitals Tripoint Medical CenterOxygen therapy [Minimum Data Set]Initiate Oxygen Therapy Protocol Respiratory Care Routine As Needed until discontinued starting 01/02/2022 [email or web address] Phone: comment on above:As Needed until discontinued starting 01/02/2022atient [facility] Work Phone: [facility] Work Phone: Phosphate [Mass/volume] in Serum or PlasmaPhosphorus Lab Routine Daily until discontinued starting 01/06/2022, 2 completedBON [employer] Work Phone: comcnpz on above:Daily until discontinued starting 01/06/2022, 2 completedSpirometry panelIncentive spirometry Respiratory Care Routine Every 2hr while awake until discontinued starting 01/03/2022 [email or web address] Phone: comvfes on above:Every 2hr while awake until discontinued starting 01/03/2022US Heart TransthoracicUniversity Hospitals Tripoint Medical CenterUS Heart TransthoracicUniversity Hospitals Tripoint Medical CenterXR Cervical spine 3 ViewsH[facility] Immunizations Immunization DateImmunizationNotesCare EiasigpwMjxidfwt34-27-0343ofqtsvnyv, high dose seasonal, preservative-freeGeneric ProviderHannibal Regional HospitalUohpmrupqg34-21-6062 Seasonal trivalent influenza vaccine, adjuvanted, preservative freeYuerong Cally ETCHER APPRENTICE Work Phone: [facility] HospitalQqmsnsyvep24-70-1524mkphlbagd virus vaccine, unspecified formulationMarie Ileana DO Work Phone: [facility] HospitalTrlqhzxskj05-91-2676Fnusiklkx, Seasonal, Quadrivalent, AdjuvantedYuerong Cally ETCHER APPRENTICE Work Phone: [facility] HospitalVoawdojyzt85-87-9454UJUFA-53 (PFIZER) 12Y and olderDO Marie Tejeda Work Phone: [facility]11-07-2023Moderna SARS-CoV-2 VaccinationYuerong Cally ETCHER APPRENTICE Work Phone: [facility] HospitalOpwkqtyweb94-47-4556TXC, recombinant, protein subunit RSVpreF, adjuvant reconstitu, 120mcg/0.5mL, PF (Arexvy)Yuerong Cally ETCHER APPRENTICE Work Phone: [facility] HospitalWrohmeolwr31-88-6473fmxtos vaccine recombinant Yuerong Cally ETCHER APPRENTICE Work Phone: [facility] HospitalHvtbvejbuh50-69-4513WSFTI-65 mRNA Bivalent Booster (Pfizer)DO Marie Tejeda Work Phone: [facility]11-15-2022Moderna Bivalent Booster VaccinationYuerong Cally ETCHER APPRENTICE Work Phone: [facility] HospitalQheyxyfrfd73-46-0813rnfkckipc, high dose seasonal, preservative-freeYuerong Cally ETCHER APPRENTICE Work Phone: [facility] HospitalRudlxoyvrj49-47-7465nwofsf vaccine, liveYuerong Cally ETCHER APPRENTICE Work Phone: [facility] HospitalEelvshtajd23-53-3773muenvl vaccine recombinant Yuerong Cally ETCHER APPRENTICE Work Phone: [facility] HospitalQvzvabhvvz47-66-7255hnmyudjnx, high dose seasonal, preservative-freeYuerong Cally ETCHER APPRENTICE Work Phone: [facility] HospitalPdhggptdxp22-35-5482Cbningv SARS-CoV-2 VaccinationYuerong Cally ETCHER APPRENTICE Work Phone: [facility] HospitalVqhanwfvhp44-61-0428Sbezzzd SARS-CoV-2 VaccinationYuerong Cally ETCHER APPRENTICE Work Phone: [facility] HospitalHlmjfykctw77-12-2158Uipnwcxv trivalent influenza vaccine, adjuvanted, preservative freeYuerong Cally ETCHER APPRENTICE Work Phone: [facility] HospitalWkqdevjtfx82-95-9760ogmvdxuycdlr conjugate vaccine, 13 valentYuerong Cally ETCHER APPRENTICE Work Phone: [facility] HospitalYkczwwngps11-52-3793jnkxwvdxtzbnv B vaccine, recombinant, OMV, adjuvantedRobert [facility] hospitalk DO Work Phone: noReynolds [facility] General Memorial HospitalNraxxeylbk36-92-1558gkocirtttynmj polysaccharide (groups A, C, Y and W-135) diphtheria toxoid conjugate vaccine (MCV4P)[facility] DO Work Phone: [facility] HospitalErryppxhqe91-78-0768hhrnjzwvhxyv polysaccharide vaccine, 23 valentRobert [facility] hospit[facility] DO Work Phone: [facility] HospitalUuokpulvft48-80-1059Zryupqhe trivalent influenza vaccine, adjuvanted, preservative freeYuerong Cally ETCHER APPRENTICE Work Phone: [facility] HospitalCbihxtphuk47-58-8754gnixffakrpm influenzae type b vaccine, PRP-OMP conjugateRobert [facility] DO Work Phone: [facility] HospitalBlvxawlcyi53-94-9886jkrzzqfqmixld B vaccine, recombinant, OMV, adjuvantedRobert Vaschak DO Work Phone: [facility] HospitalZqoiiwkhpu76-15-0411pktjzdwrpqyh conjugate vaccine, 13 valentRobert Vaschak DO Work Phone: [facility] HospitalHbanhsjhgf69-67-2382Vdmzvtjg trivalent influenza vaccine, adjuvanted, preservative freeYuerong Cally ETCHER APPRENTICE Work Phone: [place] [address]Wwlcfphplv91-25-1073tnkhguw and diphtheria toxoids, adsorbed, preservative free, for adult use (5 Lf of tetanus toxoid and 2 Lf of diphtheria toxoid)Anatoly Anne ETCHER APPRENTICE Work Phone: [facility] HospitalZxqvtvgwhf24-43-3037oaoacohbr, high dose seasonal, preservative-freeAnatoly Cally ETCHER APPRENTICE Work Phone: [facility] HospitalXgbilxqxin44-11-4179apinlhwkrzvp polysaccharide vaccine, 23 valentYleonarda Cally ETCHER APPRENTICE Work Phone: [facility] HospitalJogpvwebtk25-30-8243vckydli toxoid, reduced diphtheria toxoid, and acellular pertussis vaccine, adsorbedAnatoly [employer] ETCHER APPRENTICE Work Phone: [facility] Payers DatePayer CategoryGayerConemaugh Memorial Medical Center [id number]-usg [id number] Health Insurance1.2.840.027836.1.13.693.2.7.9.013875.582996. Medicare1.2.840.911162.1.13.647.2.7.3.0191[id number] 1.2.840.690019.1.13.239.2.7.3.9999[id number] 1.2.840.142453.1.13.239.2.7.3.847279.05290-74-9961Yqfaezt084652060 2.16.840.1.058181.3.579.2.68008-95-1496Tzehxvl8498561 2.16.840.1.545172.3.579.2.20429-97-5204Dzzbekb0060337 2.16.840.1.547407.3.579.2.18678-92-9131Clwzusg2186954 2.16.840.1.051800.3.579.2.76835-43-7853Jqsshiq955467496 2.16.840.1.842401.3.579.2.34459-03-4691Tudpglw73203828 2.16.840.1.640502.3.579.2.649891-81-1576Hmtoous95118622 2.16.840.1.521033.3.579.2.857700-51-7088Bzphxyo02434274 2.16.840.1.584015.3.579.2.733451-49-2902Pjfhmwe68252492 2.16.840.1.871620.3.579.2.84487-50-2313Bkwivis71135693 2.16.840.1.616907.3.579.2.50765-48-2507Ydyegos00992249 2.16.840.1.586900.3.579.2.91855-93-9110Fbkxevi22889747 2.16.840.1.608532.3.579.2.740549-25-3422Rrjxgep35363140 2.16.840.1.357211.3.579.2.520829-70-9380Mmyskxe82837243 2.16.840.1.223001.3.579.2.760789-15-0162Axnvucg43319417 2.16.840.1.434119.3.579.2.554463-27-2415Gnxlrkm05757821 2.16.840.1.485442.3.579.2.717475-59-8491Jcvgbwg06831349 2.16.840.1.222809.3.579.2.471288-30-9782Stfczqd8530085 2.840.1.595927.3.579.2.197116-67-0652Zrwpjhp6354624 2.0.1.603092.3.579.2.842480-85-4629Ojnifmv6491514 2.840.1.295405.3.579.2.771016-06-8597Glqsoko5689433 2.840.1.670410.3.579.2.664668-61-4491Lxupgxf4650257 2.0.1.837688.3.579.2.293231-31-0328Mvbwppa5280314 2.0.1.601393.3.579.2.799257-93-5794Ttqeezk84364288 2.0.1.144127.3.579.2.06031-79-6294Qctkyav81842006 2.0.1.653370.3.579.2.76020-54-6989Dshwnzn98507083 2.0.1.455732.3.579.2.15391-76-0612Ujtvxnh74541701 2.0.1.576497.3.579.2.71211-28-5628Ystxfhc23514574 2.0.1.978001.3.579.2.09040-75-6892Tzntfbm94949653 2.0.1.934163.3.579.2.309FyxadygVB0023357Bunrfla71473740 2.840.1.737648.3.579.2.048Ogkptrm35080235 2.840.1.175067.3.579.2.531 Dfxmjko38437084 2.840.1.504372.3.579.2.540Zwqvkod30368291 2.16.840.1.752478.3.579.2.910Dhlgobf60719174 2.16.840.1.142008.3.579.2.531 Ordavak74816881 2.16.840.1.055638.3.579.2.286Vgmbmpk46932820 2.16.840.1.757807.3.579.2.540Gowzupn78622847 2.16.840.1.434982.3.579.2.531 Jqoalfn92019886 2.16.840.1.681928.3.579.2.969Lmbibaj99432043 2.16.840.1.797665.3.579.2.686Qkkaiox21574927 2.16.840.1.128137.3.579.2.531 Social History DateTypeDetailFacilityStart: 01-04-2022 End: 87-24-4102Rcdlhpw smoking status NHISEx-smokerRaytheon [employer] Start: 07-12-1947 End: 65-94-6011Juhhfsj of tobacco useCigarette SmokerHONORHE[facility] [email or web address] Phone: start: 01-04-2022 End: 62-89-0365Qwebygh use and exposureSmokeless tobacco non-userHONORHEALTH [facility]ONORAN [facility] [email or web address] Phone: start: 72-71-6976Xahpdap intakeEx-drinker (finding)[facility] [email or web address] Phone: start: 17-92-5598Gaf Assigned At BirthNot on fileHONORHEALTH SONORAN [facility] [email or web address] Phone: start: 12-24-2021 End: 78-33-2151Dzcvshvu to SARS-CoV-2 (event)Not sureHONORHEALTH [facility]ORAN [facility] [employer] Start: 04-28-2023 End: 32-43-0857Lovmpwm smoking status NHISCurrent some day smokerGrand Lake Joint Township District Memorial Hospitaltart: 34-10-7180Ptu [facility]: 05-25-2023 End: 07-65-6371Zlf Assigned At [facility] [employer] Other Start: 05-25-2023 End: 10-85-7527Agwsisb intakeCurrent drinker of alcohol (finding)[facility] Work Phone: Start: 05-25-2023 End: 36-70-0958Ythlvoq intakeUnUniversity Hospitals Par[facility] Center Work Phone: Start: 07-12-1947 End: 31-04-4845Qzayvof smoking status NHISSmoker (finding)[facility] CenterHow often to you have a drink containing alcohol?2-4 times a month [facility] HealthcareHow many standard drinks containing alcohol do you have on a typical day?1 or 2N[facility] HealthcareHow often do you have 6 or more drinks on 1 occasion?NeverNOVT HealthcareStart: 36-17-3053Tlbkxlg CommentHas a history of cessation from smokin02/09/2018NOVT HealthcareStart: 11-22-2010 End: 71-94-5498MsiWdez (finding)[facility] Hospitaltart: 03-30-2018 End: 84-20-0366Hgongsvm Score (1-100), lower number is lower mvek21Klivrqkov ClinicStart: 59-62-4341Xtrynsy Commentsocial useParkview Healthtart: 07-12-1947 End: 67-58-2060Iipeqiw smoking status NHISSmokes tobacco dailyNOVT Healthcare Tobacco smoking statusExecutive Urology of [facility] Start: 22-07-8566Ngeygle Commentcaffeine-1 cup per day [facility] Medical Equipment Procedure CodeEquipment CodeEquipment Original TextEquipment IdentifierDates ORIF, hipOrthopaedic bone screw, non-bioabsorbable, non-sterile ()[id number] FDAStart: 78-43-0026ZSOG, hipFemur nail, sterile ()[id number])[id number] FDAStart: 88-73-8661KNZY, hipSpiral blade()[id number] FDAStart: 06-94-7451Ifvhfpeao, pacemakerEndocardial defibrillation lead ()[id number])[id number] FDAStart: 06-05-6387Ehwufzzom, pacemakerDual-chamber implantable defibrillator ()[id number] FDAStart: 16-74-3146Cqdjmlyvq, pacemakerEndocardial/interventricular septal pacing lead ()[id number])[id number] FDAStart: 66-06-7155MC STENT MARK FRONTIER 3.5 X 18FDAStart: 18-98-3085EC STENT MARK FRONTIER 3.5 X 18FDAStart: 11-74-3249QhhtpyyYlzli: 69-19-0595Azc Needle, Diabetic (Bd Ultra-Fine Marichuy Pen Needle) 32 gauge x 5/32 needleStart: 03-50-9669MV STENT MARK FRONTIER 3.5 X 18 FDAStart: 94-49-5795ZyreyohIsvzk: 64-69-8899Svt Needle, Diabetic (Bd Ultra-Fine Marichuy Pen Needle) 32 gauge x 5/32 needleStart: 16-36-3444BA STENT MARK FRONTIER 3.5 X 18FDAStart: 48-45-3279TdkctgoPkbgz: 80-62-2268Sxt Needle, Diabetic (Bd Ultra-Fine Marichuy Pen Needle) 32 gauge x 5/32 needleStart: 41-32-7805TL STENT MARK FRONTIER 3.5 X 18FDAStart: 60-22-7183VajuwgaUefux: 41-74-4956Szg Needle, Diabetic (Bd Ultra-Fine Marichuy Pen Needle) 32 gauge x 5/32 needleStart: 23-24-1899AZ STENT MARK FRONTIER 3.5 X 18FDAStart: 64-46-2304VwhekwpIlctj: 67-39-0439Cup Needle, Diabetic (Bd Ultra-Fine Marichuy Pen Needle) 32 gauge x 5/32 needleStart: 19-77-5725VN STENT MARK FRONTIER 3.5 X 18FDAStart: 07-16-2023 LancetsStart: 46-89-7599Hyr Needle, Diabetic (Bd Ultra-Fine Marichuy Pen Needle) 32 gauge x 5/32 needleStart: 20-68-4006JZ STENT MARK FRONTIER 3.5 X 18FDAStart: 44-69-4600GhtkqmvGuyhz: 43-21-1918Miv Needle, Diabetic (Bd Ultra-Fine Marichuy Pen Needle) 32 gauge x 5/32 needleStart: 64-46-7074PV STENT MARK FRONTIER 3.5 X 18 FDAStart: 36-76-7082YvamkpoWrqlz: 77-65-5905Gob Needle, Diabetic (Bd Ultra-Fine Marichuy Pen Needle) 32 gauge x 5/32 needleStart: 71-57-4798JF STENT MARK FRONTIER 3.5 X 18FDAStart: 32-01-9500BzbzlzvUenmy: 80-75-5790Xgj Needle, Diabetic (Bd Ultra-Fine Marichuy Pen Needle) 32 gauge x 5/32 needleStart: 81-04-7819EC STENT MARK FRONTIER 3.5 X 18FDAStart: 95-67-2783ZltuvfiKadet: 12-44-4949Rke Needle, Diabetic (Bd Ultra-Fine Marichuy Pen Needle) 32 gauge x 5/32 needleStart: 73-90-4611CB STENT MARK FRONTIER 3.5 X 18FDAStart: 22-92-0491MvbkkfiUvhfl: 37-70-3810Ukd Needle, Diabetic (Bd Ultra-Fine Marichuy Pen Needle) 32 gauge x 5/32 needleStart: 75-93-4564NO STENT MARK FRONTIER 3.5 X 18FDAStart: 07-16-2023 LancetsStart: 00-92-3346Udm Needle, Diabetic (Bd Ultra-Fine Marichuy Pen Needle) 32 gauge x 5/32 needleStart: 89-58-5924OT STENT MARK FRONTIER 3.5 X 18FDAStart: 99-77-1900CqcjrusAhklw: 22-19-1265Gwu Needle, Diabetic (Bd Ultra-Fine Marichuy Pen Needle) 32 gauge x 5/32 needleStart: 61-51-6302ZK STENT MARK FRONTIER 3.5 X 18 FDAStart: 29-42-3574SwzlcgtWopal: 92-21-3587Jqg Needle, Diabetic (Bd Ultra-Fine Marichuy Pen Needle) 32 gauge x 5/32 needleStart: 15-79-3110AU STENT MARK FRONTIER 3.5 X 18FDAStart: 47-19-2000WcludjyYwgfl: 91-04-4067Kpn Needle, Diabetic (Bd Ultra-Fine Marichuy Pen Needle) 32 gauge x 5/32 needleStart: 83-34-1393LD STENT MARK FRONTIER 3.5 X 18FDAStart: 64-53-3708TgvqncfRmqxr: 59-41-3008Mxg Needle, Diabetic (Bd Ultra-Fine Marichuy Pen Needle) 32 gauge x 5/32 needleStart: 28-72-920344311806Axvbd: 39-60-0033WZ STENT MARK FRONTIER 3.5 X 18FDAStart: 92-03-9206UoxcgqpFlfao: 13-22-7207Ykl Needle, Diabetic (Bd Ultra-Fine Marichuy Pen Needle) 32 gauge x 5/32 needleStart: 71-19-4994NH STENT MARK FRONTIER 3.5 X 18 FDAStart: 30-17-6361VgdubobQpimo: 66-41-0387Yda Needle, Diabetic (Bd Ultra-Fine Marichuy Pen Needle) 32 gauge x 5/32 needleStart: 75-17-0090TY STENT MARK FRONTIER 3.5 X 18FDAStart: 64-76-0903OoddvjvFhsdd: 22-98-0648Mrz Needle, Diabetic (Bd Ultra-Fine Marichuy Pen Needle) 32 gauge x 5/32 needleStart: 88-04-9629RE STENT MARK FRONTIER 3.5 X 18FDAStart: 21-27-6437IbtpxdwEtuut: 58-90-1399Azs Needle, Diabetic (Bd Ultra-Fine Marichuy Pen Needle) 32 gauge x 5/32 needleStart: 14-75-4140HT STENT MARK FRONTIER 3.5 X 18FDAStart: 17-23-7309DefmlnmUdgrt: 96-58-0177Ozj Needle, Diabetic (Bd Ultra-Fine Marichuy Pen Needle) 32 gauge x 5/32 needleStart: 52-19-2712XG STENT MARK FRONTIER 3.5 X 18FDAStart: 86-61-7368Tdijf Sugar Diagnostic stripStart: 96-90-3725Lwvcwtv miscStart: 34-67-7594Vjt Needle, Diabetic (Bd Ultra-Fine Marichuy Pen Needle) 32 gauge x 5/32 needleStart: 20-92-3140WT STENT MARK FRONTIER 3.5 X 18FDAStart: 23-73-0316Zdpsr Sugar Diagnostic stripStart: 21-25-3649Rlgjydj miscStart: 50-88-1967Bcl Needle, Diabetic (Bd Ultra-Fine Marichuy Pen Needle) 32 gauge x 5/32 needleStart: 54-17-1184YW STENT MARK FRONTIER 3.5 X 18FDAStart: 14-75-3224Ctfcp Sugar Diagnostic stripStart: 68-33-3846Ptweeed miscStart: 58-85-8786Tge Needle, Diabetic (Bd Ultra-Fine Marichuy Pen Needle) 32 gauge x 5/32 needleStart: 74-54-5809YY STENT MARK FRONTIER 3.5 X 18FDAStart: 78-86-1038Lntbf Sugar Diagnostic stripStart: 02-51-1690Hdqtlbq miscStart: 77-83-9336Cuq Needle, Diabetic (Bd Ultra-Fine Marichuy Pen Needle) 32 gauge x 5/32 needleStart: 84-59-3472GY STENT AMRK FRONTIER 3.5 X 18FDAStart: 35-76-6214Haqtf Sugar Diagnostic stripStart: 87-52-0161Hpilriy miscStart: 34-25-2019Zde Needle, Diabetic (Bd Ultra-Fine Marichuy Pen Needle) 32 gauge x 5/32 needleStart: 92-00-8480Fnd with insulin once daily in case of pump [id number]: 81-13-9259SQ STENT MARK FRONTIER 3.5 X 18FDAStart: 62-35-0339Qckzv Sugar Diagnostic stripStart: 17-98-6730Ugnvdhq miscStart: 04-22-4726Ant Needle, Diabetic (Bd Ultra-Fine Marichuy Pen Needle) 32 gauge x 5/32 needleStart: 05-64-6877PF STENT MARK FRONTIER 3.5 X 18FDAStart: 40-89-5844Dspqj Sugar Diagnostic stripStart: 80-97-3115Awlrmcp miscStart: 14-88-6327Ysn Needle, Diabetic (Bd Ultra-Fine Marichuy Pen Needle) 32 gauge x 5/32 needleStart: 84-94-4164XF STENT MARK FRONTIER 3.5 X 18FDAStart: 28-28-6882Qgfwo Sugar Diagnostic stripStart: 44-64-5464Jyavkjq miscStart: 72-37-5936Ogk Needle, Diabetic (Bd Ultra-Fine Marichuy Pen Needle) 32 gauge x 5/32 needleStart: 49-75-9946MR STENT MARK FRONTIER 3.5 X 18FDAStart: 36-63-3301Dsgfm Sugar Diagnostic stripStart: 26-26-4990Dtwcnwc miscStart: 42-88-1597Eay Needle, Diabetic (Bd Ultra-Fine Marichuy Pen Needle) 32 gauge x 5/32 needleStart: 15-01-7763WL STENT MARK FRONTIER 3.5 X 18FDAStart: 75-00-2712Avhtm Sugar Diagnostic stripStart: 24-71-1770Yhzvmse miscStart: 24-30-2092Pzo Needle, Diabetic (Bd Ultra-Fine Marichuy Pen Needle) 32 gauge x 5/32 needleStart: 09-05-2023 Goals DatePatient GoalDesired Activity/State Functional Status GzepQbsejdmhtkMllcyyXcsfuoak04-87-4003Kuysjyolvk statusPatient at [facility] Work Phone: [phone] statusPatient at [facility] Work Phone: [phone]yn statusPatient is Progressing [facility]ard [facility] Work Phone: [phone] statusPatient at [facility] Work Phone: [phone]gg statusPatient at [facility] Work Phone: [phone] Health Questionnaire 2 item (PHQ-2) [Reported][facility] HospitalDxxtphlggf51-95-1529Hpplfsbvnr statusPatient at [facility] Work Phone: [phone] statusPatient is Progressing Toward [facility] Work Phone: [phone] statusPatient at [facility] Work Phone: [phone]m Health Questionnaire 2 item (PHQ-2) [Reported][facility] HospitalVugncozrcq40-32-3051Komdjaplkx statusPatient is Progressing [facility]ard [facility] Work Phone: [phone]hv statusPatient is Progressing [facility]ard [facility] Work Phone: [phone] statusPatient Not at [facility] Work Phone: Mental Status EqgzUeahfsokjtXgtkxuTjblqinw00-74-5805Rdxbzvjhw functionCognitive Status [facility] Work Phone: [phone] functionCognitive Status [facility] Work Phone: [phone] functionCognitive Status [facility] Work Phone: [phone] functionCognitive Status [facility] Work Phone: [phone] functionCognitive Status [facility] Work Phone: [phone] functionCognitive Status [facility] Work Phone: [phone] functionCognitive Status [facility] Work Phone: [phone] functionCognitive Status Patient at BaselineCount [facility]cludes [facility] Work Phone: [phone] functionCognitive Status Patient is Progressing Toward [facility] Work Phone: [phone] functionCognitive Status Patient is Progressing Toward [facility] Work Phone: [phone]cog functionCognitive Status Patient at [facility] Work Phone: Clinical Notes 01-07-2022 to 05-17-2025 Note Date & [id number] NoteED Patient Education Note Obstetrics and Gynecology [...] this condition includes: ??? Antibiotic medicine. ??? Vxem-iob-esrpbnq medicines to treat discomfort. ??? Drinking enough [...] these instructions at home: Medicines ??? Take knkk-hca-nzextqq and prescription medicines only as told by [...] care provider. Make marcus (more content not included)...[facility]10-23-2025 NoteHNO ID: [id number] Author: AYANA ZAVALA APRN.LOAN REVIEW OFFICER Service: ? Author Type: Nurse Practitioner Type: Progress Notes Filed: 05/03/2025 12:25 Note Text: Endocrinology Follow Up History of Present Illness Manolo Roche is a 89 year old male presents today for follow up of DM Type 1. Here with . 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 Per patient, this was done due to [...] Dosage Pharm Subclass aspirin, (more content not included)...[facility]10-23-2025 Note HNO ID: [id number] Author: MIGUEL A GOODWIN MA Service: ? Author Type: Second Worker Type: Procedures Filed: 05/03/2025 12:25 Note Text:[facility]10-10-2025 Hospital Discharge instructions Follow Up Care 04/20/2025 10:32:21 With:JULIO OGLESBY, Tristan Interiano, URL Address: [address] [place], [place] [id number] When: Unknown Comments:Pending Cysto/bladder function testing [facility] Manuel 09-29-2025 NoteHNO ID: [id number] Author: AYANA ZAVALA APRN.LOAN REVIEW OFFICER Service: ? Author Type: Nurse Practitioner Type: Progress Notes Filed: 04/10/2025 08:17 Note Text: Endocrinology Follow Up History of Present Illness Manolo Roche is a 89 year old male presents today for follow up of DM Type 1. Here with . At [facility] 10/2024, basal rate was reduced overnight. [...] or vomiting. 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 Labwork from this AM is pending. recalls he is not bolusing consistently and will ignore his Omnipod alarms at times. Patient recalls being consistent with his Novolog and Lantus injections when he was on these. 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 Per patient, this was done due to [...] OTHER Medication Dosage Pharm Subclass Blood-Glucose Sensor (Months Of Me G7 SENSOR) delfin Change every 10 days. [...] needed. Agents to treat Hypoglycemia (Hyperglycemics) Insulin Hernando, Disposable, (BD ULTRA-FINE MARICHUY PEN NEEDLE) 32 gauge x 5/32 Use with insulin once daily in case of pump failure Medical Supplies and DME - Insulin Hernando-Syringes and Admin Supplies insulin pump cart,auto,B (more content not included)...[facility]09-16-2025 Evaluation note* Diagnosis Onset Date Resolution Status Admit Date Ischemic cardiomyopathy acuteSeptember 2024 9:54amType 1 diabetes mellitusacuteSeptember 2024 9:54amAcute GI bleedingresolvedSept2024 9:54amCoronary artery disease involving point lay ira coronary artery of point lay ira heart wiinactiveSept2024 9:54amHypertensioninactiveSeptember 2024 9:54amS/P PTCA (percutaneous transluminal coronary angioplasty)inactiveSept2024 9:54amH pylori ulceracuteOctober 2024 10:11amIron deficiencyacuteOctober 2024 10:11amIschemic cardiomyopathyacuteOctober 2024 10:11amType 1 diabetes mellitusacuteOctober 2024 10:11amAcute GI bleedingresolvedOctober 2024 10:11amNon-ST elevation myocardial infarction (NSTEMI), subendocardial infarction,resolvedOctober 2024 10:11amCoronary artery disease involving point lay ira coronary artery of point lay ira heart wiinactiveOctober 2024 10:11amHypertensioninactiveOctober 2024 10:11amS/P PTCA (percutaneous transluminal coronary angioplasty)inactiveOctober 2024 10:11am [facility] Work Phone: 1(641) 904-575407-29-2025 Telephone encounter Note* Telephone Encounter - Ayana Zavala APRN.CNP - 02/06/2025 11:55 AM EDT Please fax labs to [facility]. See other encounter- Medicare is requiring documentation of his insulin level in order to cover his insulin under Part B. Please notify patient BG needs to be under 225 mg/dL in the AM in order for insulin level to be accurate. [facility]07-29-2025 Miscellaneous Notes* Telephone Encounter - Ayana Zavala APRN.CNP - 02/06/2025 11:55 AM EDT Please fax labs to [place] lab. See other encounter- Medicare is requiring documentation of his insulin level in order to cover his insulin under Part B. Please notify patient BG needs to be under 225 mg/dL in the AM in order for insulin level to be accurate. documented in this encounterOhiohealth Grove City [facility]07-28-2025 Telephone encounter Note * Telephone Encounter [...] this to be an accurate reading. [facility]07-28-2025 Miscellaneous Notes* Telephone Encounter - Ayana [...] be an accurate reading. 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 [facility] VASECTOMY 1989 SOCIAL HISTORY: Social History [...] Depression - At risk (01/21/2024) Received from [employer] PHQ-2 Total Score: 3 FAMILY HISTORY: Family [...] (PRILOSEC) 20 mg, Daily before breakfast pancrelipase, Koc-Lzlp-Xidp, (Creon) 71551-69595 units capsule TAKE 2 CAPSULES BY MOUTH [...] 2. End-stage heart failure. - Classified as [place] Heart Association Class III/IV, indicating severe heart [...] and monitoring are necessary. documented in this encounterHannibal Regional [id number] Instructions* Patient Instructions* Selma Wilcox LPN - 01/02/2025 11:30 AM EDT ?? ATTENTION: Ribbit Policy Update - Effective 12/13/24 Beginning today, our nursing team will review Ribbit messages twice daily and help determine the [...] a brief office visit, if handled via Ribbit. We want you to feel informed and confident when using Ribbit, so here are a few examples to [...] us in your health! documented in this encounterHannibal Regional [id number] Telephone encounter Note* Telephone Encounter - Erick Peguero LPN - 12/27/2024 5:54 PM EDT Spoke to patient's . The sensors are ready for picking tech at pharmacy. She will let us know whereshe would like the refills sent when they are ready, nothing further for now. [facility]06-18-2025 Miscellaneous Notes* Telephone Encounter - Erick Peguero LPN - 12/27/2024 5:54 PM EDT Spoke to patient's . The sensors are ready for picking tech at pharmacy. She will let us know whereshe would like the refills sent when they are ready, nothing further for now. * Telephone Encounter - Ayana Zavala APRN.CNP - 12/27/2024 9:53 AM EDT Please call [facility] to inquire what is needed from the office. documented in this encounterOhiohealth Grove City [facility] Hospital06-18-2025 Telephone encounter Note * Telephone Encounter - Ayana Zavala APRN.CNP - 12/27/2024 9:53 AM EDT Please call [facility] to inquire what is needed from the office. [facility]06-16-2025 Telephone encounter Note* Telephone Encounter - Ayana Zavala APRN.CNP - 12/25/2024 8:03 AM EDT Rx sent however patient obtains typically from [facility], are they still having issues obtaining from there? [facility]06-16-2025 Miscellaneous Notes* Telephone Encounter - Ayana Zavala APRN.CNP - 12/25/2024 8:03 AM EDT Rx sent however patient obtains typically from [facility], are they still having issues obtaining from there? * Telephone Encounter - Sharonda Felipe - 12/19/2024 12:04 PM EDT Pt needs refill on sensors. Do not see on current med list. [facility]. Insurance is not going to pay for this until 01/03. Spouse is requesting to speak to a nurse about getting an alternative until then. Please review and advise. Patient has been identified by name and birthdate. Duration of symptoms: N/A Person calling: self Call patient at: on cell [phone] (cell) Was an appointment scheduled: No Closing statement: Results or non-symptom based questions: Thank you for calling [facility], your call will be returned within the next business day. Sharonda Kay documented in this encounterOhiohealth Grove City [facility] Hospital06-10-2025 Telephone encounter Note * Telephone Encounter - Sharonda Felipe - 12/19/2024 12:04 PM EDT Pt needs refill on sensors. Do not see on current med list. [facility] in [facility]. Insurance is not going to pay for this until 01/03. Spouse is requesting to speak to a nurse about getting an alternative until then. Please review and advise. Patient has been identified by name and birthdate. Duration of symptoms: N/A Person calling: self Call patient at: on cell [phone] (cell) Was an appointment scheduled: No Closing statement: Results or non-symptom based questions: Thank you for calling [facility], your call will be returned within the next business day. Sharonda Kay [facility]06-03-2025 Telephone encounter Note* Telephone Encounter - [...] Patrick December 12, 2024 3:37 PM [facility]06-03-2025 Miscellaneous Notes* Telephone Encounter - Steven [...] 12, 2024 3:37 PM documented in this encounterOhiohealth Grove City [facility] Hospital04-23-2025 Telephone encounter Note * Telephone Encounter - Ayana Zavala APRN.CNP - 11/01/2024 11:59 AM EDT Please call pharmacy to inquire which insulin is covered or what they need prescription to say- do they need it sent as brand Novolog? [facility]04-23-2025 Miscellaneous Notes* Telephone Encounter - Ayana Zavala APRN.CNP - 11/01/2024 11:59 AM EDT Please call pharmacy to inquire which insulin is covered or what they need prescription to say- do they need it sent as brand Novolog? documented in this encounterOhiohealth Grove City [facility] Hospital04-17-2025 Instructions* Patient Instructions* Ayana Zavala APRN.CNP - 10/26/2024 12:38 PM EDT Plan Basal 12am 0.4 8am 0.5 ICR 12am 15 ISF 12am 60 BG Correction Threshold 12am 150 BG Target 12am 150 Recommend discontinuing Farxiga due to risk of euglycemic diabetic ketoacidosis- discussed with PCP/ furniture upholsterer BACKUP INSULIN PLAN: Only use this if [...] up in 8 weeks documented in this encounterOhiohealth Grove City Methodist Hospital04-17-2025 NoteHNO ID: [id number] Author: AYANA ZAVALA APRN.CNP Service: ? Author Type: Nurse Practitioner Type: Progress Notes Filed: 10/26/2024 13:11 Note Text: Endocrinology Follow Up History of Present Illness Manolo Roche is a 89 year old male presents today for follow up of DM Type 1. Here with . 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 Per patient, this was done due to [...] needed. Agents to treat Hypoglycemia (Hyperglycemics) Insulin Hernando, Disposable, (BD ULTRA-FINE MARICHUY PEN NEEDLE) 32 gauge x 5/32 Use with insulin once daily in case of pump failure Medical Supplies and DME - Insulin Hernando-Syringes and Admin Supp (more content not included)...[facility]04-17-2025 History of Present illness Narrative* Ayana Zavala, AMADA.LOAN REVIEW OFFICER - 10/26/2024 12:05 PM EDT Endocrinology Follow Up History of Present Illness Manolo Roche is a 89 year old male presents today for follow up of DM Type 1. Here with . 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 Per patient, this was done due to [...] needed. Agents to treat Hypoglycemia (Hyperglycemics) Insulin Hernando, Disposable, (BD ULTRA-FINE MARICHUY PEN NEEDLE) 32 gauge x 5/32 Use with insulin oncedaily in case of pump failure Medical Supplies and DME - Insulin Hernando-Syringes and Admin Supplies insulin pump cart,auto,BT,G6/7 (OMNIPOD 5 G6-G7 PODS, GEN 5,) crtg Change every 72 hours. Medical Supply, FDB Superset Lactobac no.41/Bifidobact no.7 (PROBIOTIC-10 ORAL) Take by mouth once daily. Intestinal Chayo Modifiers kinnvj-gbqtxtmd-noveomj (CREON) 24,000-76,000 -120,000 unit cpDR Take 2 capsules by mouth three times daily with meals. and 1 with snacks (8/day) Digestive Enzyme Mixtures lutein-zeaxanthin 25-5 mg cap Take by mouth once daily. Alternative Therapy - Antioxidant Omeprazole Magnesium 20 mg tablet Take 20 mg by mouth. Gastric Acid Secretion Film Processing Utility Worker - Proton PumpInhibitors (PPIs) PARoxetine (PAXIL) 40 mg tablet Take 40 mg by mouth every morning. Antidepressant - Selective Serotonin Reuptake Inhibitors (SSRIs) tamsulosin (FLOMAX) 0.4 mg Take 0.4 mg by mouth. Prostatic Hypertrophy Agent - xyjtt-9-BvotamtpxybnQlwokdzztgc Physical Activity: No formal program Diet: CHO [...] Advised to discuss further with PCP / furniture upholsterer, but from our standpoint he would be [...] Recommend discontinuing Farxiga- discussed with PCP / furniture upholsterer BACKUP INSULIN PLAN: Only use this if [...] time of the patient encounter Ayana Zavala APRN.LOAN REVIEW OFFICER (Signed electronically to expedite mailing) documented in this encounterOhiohealth Grove City [facility] Hospital04-04-2025 Evaluation note* Diagnosis Onset Date Resolution Status Admit Date Ischemic cardiomyopathy acuteApril 2024 9:10amType 1 diabetes mellitusacuteApril 2024 9:10am Acute GI bleedingresolvedApril 2024 9:10amCoronary artery disease involving point lay ira coronary artery of point lay ira heart wiinactiveApril 2024 9:10am HypertensioninactiveApril 2024 9:10amS/P PTCA (percutaneous transluminal coronary angioplasty)inactiveApril 2024 9:10am [facility] Work Phone: 1(592) 180-514804-02-2025 Telephone encounter Note* Telephone Encounter - Gaye Mata RN - 10/11/2024 4:17 PM EDT Patient's sent message patient had received Dexcom G7 CGM sensors from [employer] lastnight. Patient applied Omnipod 6 insulin pump [...] CGM in the next few days. [facility]04-02-2025 Miscellaneous Notes* Telephone Encounter - Gaye Mata RN - 10/11/2024 4:17 PM EDT Patient's sent message patient had received Dexcom G7 CGM sensors from [employer] lastnight. Patient applied Omnipod 6 insulin pump [...] next few days. documented in this encounterOhiohealth Grove City [facility] Hospital04-02-2025 Miscellaneous Notes* Telephone Encounter - Gaye Mata RN - 10/11/2024 4:00 PM EDT [facility] for pt to return call. Patient appears to now be connected to the sensor. Advised how to treat hypoglycemia. Recommended see educator for appt to review pump and sensor operation documented in this encounterOhiohealth Grove City [facility] Hospital04-02-2025 Telephone encounter Note * Telephone Encounter - Gaye Mata RN - 10/11/2024 4:00 PM EDT [facility] for pt to return call. Patient appears to now be connected to the sensor. Advised how to treat hypoglycemia. Recommended see educator for appt to review pump and sensor operation [facility]04-02-2025 Telephone encounter Note* Telephone Encounter - Ruchi Rhoades - 10/11/2024 11:37 AM EDT Images from the original note were not included. [facility]04-02-2025 Miscellaneous Notes* Telephone Encounter - Ruchi [...] notes attached Questions Completed Waiting for determination [facility] Prior [facility] [facility] [place] * Telephone Encounter - Ayana Zavala APRN.CNP - 10/11/2024 8:07 AM EDT Received notice from pharmacy PA is request for Ominpod 5 pods. Please complete. documented in this encounterOhiohealth Grove City [facility] Hospital04-02-2025 Telephone encounter Note * Telephone Encounter - Ruchi Rhoades - 10/11/2024 11:31 AM EDT Images from the original note were not included. Initiated PA for insulin pump cart,auto,BT,G6/7 (OMNIPOD 5 G6-G7 PODS, GEN 5,) crtg through [employer] Medicare Chart notes attached Questions Completed Waiting for determination Ruchi Prior Utility [facility] [place] [facility]04-02-2025 Telephone encounter Note* Telephone Encounter - Ayana Zavala APRN.CNP - 10/11/2024 8:07 AM EDT Received notice from pharmacy PA is request for Ominpod 5 pods. Please complete. [facility]04-02-2025 Telephone encounter Note* Telephone Encounter - Ayana Zavala APRN.CNP - 10/11/2024 8:06 AM EDT Will send PA request in other encounter to PA team. [facility]04-02-2025 Miscellaneous Notes* Telephone Encounter - Ayana Zavala APRN.CNP - 10/11/2024 8:06 AM EDT Will send PA request in other encounter to PA team. documented in this encounterOhiohealth Grove City [facility] Hospital04-01-2025 Telephone encounter Note * Telephone Encounter - Erick Peguero LPN - 10/10/2024 3:28 PM EDT Spoke to [facility], he reported that the Dexcom supplies should be delivered today vis [employer]. Tracking nbr [id number]. According to his notes it was out for delivery at 5:48 am 10/10/2024. I attempted to reach patient at both nbrs listed, no answer. left with update. I will send a MyChart message as well. [facility]04-01-2025 Miscellaneous Notes* Telephone Encounter - Erick Peguero LPN - 10/10/2024 3:28 PM EDT Spoke to [facility], he reported that the Dexcom supplies should be delivered today vis [employer]. Tracking nbr [id number]. According to his notes it was out [...] for follow up. documented in this encounterOhiohealth Grove City [facility] Hospital04-01-2025 Telephone encounter Note * Telephone Encounter [...] patient's provider office for follow up. [facility]03-26-2025 Telephone encounter Note* Telephone Encounter - Gaye Mata RN - 10/04/2024 4:38 PM EDT [employer] called stating that he is out of Dexcom G7 CGM sensors and has been having difficulty getting the shipment from [employer], his DME supplier. Patient states he made 3 calls to them this week, one including a conditioning yard supervisor at [facility], who promised that the shipment was sent and would be received in a day or two. Advised patient to contact his provider's office to see if they are able to help as they submitted all the original paperwork to [facility] back in August and I am not sure if they are waiting on something from the office. Patient was also told to see if the provider's office had Dexcom G7 sensor samples to provide until his shipment arrives so he does not have to drive out to [facility]. Patient verbalized understanding. [facility]03-26-2025 Miscellaneous Notes* Telephone Encounter - Gaye Mata RN - 10/04/2024 4:38 PM EDT [employer] called stating that he is out of Dexcom G7 CGM sensors and has been having difficulty getting the shipment from [employer], his DME supplier. Patient states he made 3 calls to them this week, one including a conditioning yard supervisor at [facility], who promised that the shipment was sent and would be received in a day or two. Advised patient to contact his provider's office to see if they are able to help as they submitted all the original paperwork to [facility] back in August and I am not sure if they are waiting on something from the office. Patient was also told to see if the provider's office had Dexcom G7 sensor samples to provide until his shipment arrives so he does not have to drive out to [facility]. Patient verbalized understanding. documented in this encounterOhiohealth Grove City [facility]03-19-2025 Telephone encounter Note * Telephone Encounter - Gaye Mata RN - 09/27/2024 1:22 PM EDT In error [facility]03-19-2025 Miscellaneous Notes* Telephone Encounter - Gaye Mata RN - 09/27/2024 1:22 PM EDT In error documented in this encounterOhiohealth Grove City [facility] Hospital03-18-2025 Telephone encounter Note * Telephone Encounter [...] called Report to their ER Agreeable [facility]03-18-2025 Miscellaneous Notes* Telephone Encounter - Yanique [...] 09/26/2024 8:29 AM EDT Provided report to [place] [facility]. * Telephone Encounter - Erick Peguero LPN - 09/26/2024 8:18 AM EDT Left message on machine to call the office. * Telephone Encounter - Ramya Crandall, KARIN - 09/26/2024 8:10 AM EDT Pt identified by name and Pt given message below Stated understanding will take pt to [facility] Advised to f/u with endo upon release [...] ( see 09-25-2024) Will document this in [employer]/ basics * Telephone Encounter - Erick Peguero [...] the ER immediately. documented in this encounterOhiohealth Grove City [facility] Hospital03-18-2025 Telephone encounter Note * Telephone Encounter - Ayana Zavala APRN.CNP - 09/26/2024 8:29 AM EDT Provided report to [facility]. [facility]03-18-2025 Telephone encounter Note* Telephone Encounter - Erick Peguero LPN - 09/26/2024 8:18 AM EDT Left message on machine to call the office. [facility]03-18-2025 Telephone encounter Note* Telephone Encounter - Ramya Crandall, RN - 09/26/2024 8:10 AM EDT Pt identified by name and Pt given message below Stated understanding will take pt to [facility] Advised to f/u with endo upon release [...] Will document this in epic/ basics [facility]03-18-2025 Telephone encounter Note* Telephone Encounter - Erick Peguero LPN - 09/26/2024 7:47 AM EDT Attempted to reach patient at both numbers listed in demo. Left urgent messages on both V M [facility]03-18-2025 Telephone encounter Note* Telephone Encounter - Ayana Zavala APRN.CNP - 09/26/2024 7:39 AM EDT Received page regarding critical lab result of glucose 614 mg/dL. 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 Please call patient and instruct him to be seen in the ER immediately. [facility]03-17-2025 Instructions* Patient Instructions* Ayana Zavala APRN.CNP [...] in 4 weeks documented in this encounterOhiohealth Grove City Methodist Hospital03-17-2025 NoteHNO ID: [id number] Author: AYANA ZAVALA APRN.CNP Service: ? Author [...] the meantime, but 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 Per patient, this was done due to [...] by mouth once daily. Intestinal Chayo Modifiers helmwn-ijimnxrr-unneuvk (CREON) 24,000-76,000 -120,000 unit cpDR Take 2 capsules by mouth three times daily with meals. and 1 with snacks (8/day) Digestive Enzyme Mixtures lutein-zeaxanthin 25-5 mg cap Take by mouth once daily. Alternative Therapy - Antioxidant Omeprazole Magnesium 20 mg tablet Take 20 mg by mouth. Gastric Acid Secretion Film Processing Utility Worker - Proton Pump Inhibitors (PPIs) PARoxetine (PAXIL) 40 mg tablet Take 40 mg by mouth every morning. Antidepressant - Selective Serotonin Reuptake Inhibitors (SSRIs) tamsulosin (FLOMAX) 0.4 mg Take 0.4 mg by mouth. Prostatic Hypertrophy Agent - aetzd-3-Zcolgyddyubv Antagonists Physical Activity: No formal program Diet: CHO Controlled Diet SMBG Frequency of Monitoring: Four times a Day Not connected with pump (more content not included)...[facility] 09-25-2024 History of Present illness Narrative* Ayana Zavala, AMADA.LOAN REVIEW OFFICER - 09/25/2024 2:25 PM EDT Images from [...] recently. He is having polydipsia and polyuria. HisIngenious Medcom G7 is not connected with his pump currently. He reports remembering to put his sensor code in when he last changed this so is confused why that did not work. Reports he ran out of Novolog for his pump on Wednesday but he did have Novolog pens at home so did use this in the meantime, but 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 Per patient, this was done due to [...] by mouth once daily. Intestinal Chayo Modifiers bjdmrr-jfwsuchs-ozuwkxa (CREON) 24,000-76,000 -120,000 unit cpDR Take 2 capsules by mouth three times daily with meals. and 1 with snacks (8/day) Digestive Enzyme Mixtures lutein-zeaxanthin 25-5 mg cap Take by mouth once daily. Alternative Therapy - Antioxidant Omeprazole Magnesium 20 mg tablet Take 20 mg by mouth. Gastric Acid Secretion Film Processing Utility Worker - Proton PumpInhibitors (PPIs) PARoxetine (PAXIL) 40 mg tablet Take 40 mg by mouth every morning. Antidepressant - Selective Serotonin Reuptake Inhibitors (SSRIs) tamsulosin (FLOMAX) 0.4 mg Take 0.4 mg by mouth. Prostatic Hypertrophy Agent - yokaz-8-OtcaerieewqqNexqyjdsdik Physical Activity: No formal program Diet: CHO [...] - 1.30 mg/dL 1.31 High TBH EGFR-AF [facility] >=60 mL/min/1.73m 2 >60 TBH EGFR-NON AF [facility] >=60 mL/min/1.73m 2 52 Low BUN CREATININE RATIO 17.6 CALCIUM 8.5 - 10.1 mg/dL 9 Resulting Agency TB Specimen Collected: 09/13/24 9:23 AM Performed by: [email or web address] Last Resulted: 09/13/24 10:54 AM Received From: [facility] Result Received: 09/25/24 2:18 PM Impression/Recommendations IMPRESSION [...] LDL , TG LIPID PANEL (EXTERNAL) Order: [id number] Component Ref Range & Units Cholesterol 150 - 200 mg/dL 97 Low Triglycerides 27 - 150 mg/dL 38 HDL Cholesterol >39 mg/dL 50 VLDL 0 - 30 mg/dL 8 LDL (calc) <130 mg/dL 39 Cholesterol:HDL Ratio 1.0 - 5.0 1.9 Resulting Agency [facility] Specimen Collected: 01/22/24 6:06 AM Performed by: LEROY Last Resulted: 01/22/24 1:58 PM Received From: [employer] Mobile Result Received: 07/06/24 9:37 AM -- This [...] time of the patient encounter Ayana Zavala APRN.LOAN REVIEW OFFICER (Signed electronically to expedite mailing) documented in this encounterOhiohealth [facility]03-14-2025 Telephone encounter Note * Telephone Encounter [...] he wakes up to reviewpump issues. [facility]03-14-[facility]25 Miscellaneous Notes* Telephone Encounter - Gaye [...] to reviewpump issues. documented in this encounterOhiohealth [facility] City [facility]03-14-2025 Telephone encounter Note * Telephone Encounter [...] review pump settings and reinforce education. [facility]03-14-2025 Miscellaneous Notes* Telephone Encounter - Gaye [...] and reinforce education. documented in this encounterOhiohealth Grove City [facility] Hospital02-24-2025 History of Present illness Narrative* Gaye Mata RN - 09/04/2024 1:00 PM EST DIABETES SELF-MANAGEMENT EDUCATION AND SUPPORT FOLLOW-UP VISIT Type of Diabetes: Type 2 Location: [place] Type of visit: In person individual Types [...] 5 insulin pump. Type of training:upgrade from [employer] If upgrade, patient was previously on the [...] Name: Insulet Omnipod 5 System Serial Number: [id number] Sync Date: 09/04/24 Device Time Offset (hh:mm): +00:00 Device Name: Insulet Omnipod Dash System Serial Number: [id number] Sync Date: 03/05/22 Device Time Offset (hh:mm): +00:00 Device Name: Insulet Omnipod Dash System Serial Number: [id number] Sync Date: 11/14/21 Device Time Offset (hh:mm): +00:00 Device Name: Insulet Omnipod DASH [place] Serial Number: Insulet Dash Sync Date: 09/19/20 Device Time Offset (hh:mm): +00:00 Device Name: Insulet Omnipod Dash System Serial Number: [id number] Sync Date: 09/19/20 Device Time Offset (hh:mm): [...] weeks. This is a non-billable encounter through [employer] but will be billed to the following [...] for patient selected goal(s) with dietitian and/or production recorder within 2-4 weeks/months via office visit, Ribbit message, email, or phone call. Contactinformation provided to patient for production recorder. Educator to contact patient in 3 days [...] vary based on the plan requirements. Call [phone] to schedule a diabetes education follow up visit. Time Spent (Minutes): 120 This visit note will be communicated to the healthcare provider via access to shared medical record. SIGNATURE: Gaye Mata RN PATIENT NAME: Manolo Roche DATE: September 04, 2024 TIME: 12:45 PM PAGER: documented in this encounterOhiohealth Grove City [facility] Hospital02-24-2025 NoteHNO ID: [id number] Author: GAYE MATA RN Service: ? Author Type: Registered Nurse Type: Progress Notes Filed: 09/04/2024 15:22 Note Text: DIABETES SELF-MANAGEMENT EDUCATION AND SUPPORT FOLLOW-UP VISIT Type of Diabetes: Type 2 Location: [place] Type of visit: In person individual Types [...] Name: Insulet Omnipod? 5 System Serial Number: [id number] Sync Date: 09/04/24 Device Time Offset (hh:mm): +00:00 Device Name: Insulet Omnipod Dash? System Serial Number: [id number] Sync Date: 03/05/22 Device Time Offset (hh:mm): +00:00 Device Name: Insulet Omnipod Dash? System Serial Number: [id number] Sync Date: 11/14/21 Device Time Offset (hh:mm): +00:00 Device Name: Insulet Omnipod DASH? [place] Serial Number: Insulet Dash Sync Date: 09/19/20 Device Time Offset (hh:mm): +00:00 Device Name: Insulet Omnipod Dash? System Serial Number: [id number] Sync Date: 09/19/20 Device Time Offset (hh:mm): [...] to hyperglycemia: Yes Patient (more content not included)...[facility]02-20-2025 Telephone encounter Note* Telephone Encounter - [...] instructions on day of training information to [email or web address] [facility]02-20-2025 Miscellaneous Notes* Telephone Encounter - Gaye [...] instructions on day of training information to [email or web address] documented in this encounterOhiohealth Grove City [facility] Hospital02-19-2025 History of Present illness Narrative* Marie [...] of a healthcare professional from the [facility], who has introduced a new monitor [...] has beencommunicating with his healthcare team via Ribbit and reports no feelings of depression. He [...] of a diabetic specialist at the [facility] and is managing well without any [...] mild mitral regurgitation, placing him in the [place] [employer] class 1/2. He is currently [...] ran out of his inhaler while in [place] and was unable to refill it at [...] Pancreatic insufficiency (CMS/HCC) 60' documented in this encounterHannibal Regional HospitalZftmlmbnzy15-19-7950 Telephone encounter Note* Telephone Encounter - Miguel A Goodwin MA - 08/15/2024 11:55 AM EST Form completed, faxed, confirmation received. Sent for scan. [facility]02-04-2025 Miscellaneous Notes* Telephone Encounter - Miguel A Goodwin MA - 08/15/2024 11:55 AM EST Form completed, faxed, confirmation received. Sent for scan. * Telephone Encounter - Miguel A Goodwin MA - 08/15/2024 10:23 AM EST Received a fax from [employer] for a physician's order. Placed on Taomee's desk for signature on form and chart notes. documented in this encounterOhiohealth Grove City [facility] Hospital02-04-2025 Telephone encounter Note * Telephone Encounter - Miguel A Goodwin MA - 08/15/2024 10:23 AM EST Received a fax from [employer] for a physician's order. Placed on friendfunds desk for signature on form and chart notes. [facility]01-29-2025 Telephone encounter Note* Telephone Encounter - Sheryl Ny MA - 08/09/2024 10:38 AM EST A form has been received from [employer] for LUCA note. Faxed LUCA note 07/06/24 to [phone]. Confirmation received. [facility]01-29-2025 Miscellaneous Notes* Telephone Encounter - Sheryl Ny MA - 08/09/2024 10:38 AM EST A form has been received from [employer] for LUCA note. Faxed LUCA note 07/06/24 to [phone]. Confirmation received. documented in this encounterOhiohealth Grove City [facility] Hospital01-14-2025 NoteHNO ID: [id number] Author: GAYE MATA RN Service: ? Author Type: Registered Nurse Type: Progress Notes Filed: 07/25/2024 17:09 Note Text: DIABETES CARE AND EDUCATION VISIT Location: [place] Type of visit: In person individual PATIENT'S [...] Name: Insulet Omnipod Dash? System Serial Number: [id number] Sync Date: 07/06/24 Device Time Offset (hh:mm): [...] basics AND daily use and CGM type: Data Expedition with reader. Patient understand he will need to download [employer] G7 eliane on his Platypus Platformhone SE. Patient unable to recall log in for [employer] eliane. Patient downloaded G6 eliane, not G7 eliane. Educator needed to call [employer] for assistance in resetting password as patient unable to get into his email to obtain code to reset. -Medications: reviewed home DM meds, basal insulin, prandial insulin, prebolusing, stacking insulin and how to prevent it, injectable insulin discussed: using Restorando DASH with [employer] G7 controller, and insulin pump instruction: pump benefits , pump requirements of user, pump limitations , infusion set rotation, activity mode, and insulin pump terminology: basal, bolus, carb ratio, BG target, ncpvokl-kq-jhdlb/duration, and patient did not bring insulin vials with him so we were unable to start pump today. Patient and leaving for [place] for a month tomorrow and has rescheduled [...] TOPICS: 1. Patient and to return after [place] trip to start Omnipod 5 switch from [...] This visit note tapan (more content not included)...[facility] 07-25-2024 History of Present illness Narrative* Gaye Mata, RN - 07/25/2024 1:04 PM EST DIABETES CARE AND EDUCATION VISIT Location: [place] Type of visit: In person individual PATIENT'S [...] - - - - DEVICES Device Name: ShoutNowlet Upworthyipm-spatial System Serial Number: [id number] [facility] Date: 07/06/24 Device Time Offset [...] Patient understand he will need to download [employer] G7 eliane on his Iphone SE. Patient unable to recall log in for Dexcom eliane. Patient downloaded G6 eliane, not G7 eliane. Educator needed to call [employer] for assistance in resetting password as patient [...] terminology: basal, bolus, carb ratio, BG target, zpqubls-hh-pjmnk/duration, and patient did not bring insulin vials with him so we were unable to start pump today. Patient and leaving for [place] for a month tomorrow and has rescheduled [...] TOPICS: 1. Patient and to return after [place] trip to start Omnipod 5 switch from DASH. Patient advised to remember to bring insulin vials, Omnipod 5 pods, phone, controller, and Omnipod ID login and password to next visit. DIABETES CARE AND EDUCATION PLAN: Individual follow-up Patient does not have Target Software[employer]. Email sent prior to today's visit on [...] PM PAGER: n/a documented in this encounterOhiohealth [facility] City [facility] Hospital01-10-2025 Telephone encounter Note * Telephone Encounter - Gaye Mata RN - 07/21/2024 12:09 PM EST In error - patient does not have MyChart set up, status still PENDING. Patient's sent text with code again to create account [facility]01-10-2025 Miscellaneous Notes* Telephone Encounter - Gaye Mata RN - 07/21/2024 12:09 PM EST In error - patient does not have MyChart set up, status still PENDING. Patient's sent text with code again to create account documented in this encounterOhiohealth Grove City [facility] Hospital01-09-2025 History of Present illness Narrative* Yomi Chong NP - 07/20/2024 10:00 AM EST Images from the original note were not included. Manolo Roche is a 89 y.o. male presents with chief complaint of Hospital Follow-up HPI: HPI Seeing Aayna Zavala as endocrinology through [facility]. Had I [...] He has a scheduled appointment with his furniture upholsterer, Dr. Coppola, in the coming weeks. He [...] He is under the care of an gun fitter, Dr. Awa Zavala, at [facility]. He is recovering well from an [...] prostatic hyperplasia) COPD (chronic obstructive pulmonary disease) ([facility]/HCC) Diabetes mellitus ([facility]/HCC) 10/04/2019 Ground glass opacity present on imaging of lung 02/05/2023 Hypertension ([facility]) ICD (implantable cardioverter-defibrillator) in place IPMN (intraductal papillary mucinous neoplasm) 06/23/2018 Added automatically from request for surgery [id number] Left ventricular dysfunction Lumbar spondylosis OA (osteoarthritis) [...] & D PARTIAL HIP ARTHROPLASTY Right 04/12/2023 [place] TONSILLECTOMY & ADENOIDECTOMY <AGE 12 SPLENECTOMY, TOTAL [...] Depression - At risk (01/21/2024) Received from [employer] Mobile PHQ-2 Total Score: 3 FAMILY HISTORY: Family [...] tablet, Daily nitroglycerin (NITROSTAT) 0.4 mg pancrelipase, Eor-Sefd-Iien, (Creon) 53615-47302 units capsule TAKE 2 CAPSULES BY MOUTH [...] his symptoms and follow up with his furniture upholsterer in a couple of weeks. Pain is [...] of his abdominal wall. documented in this encounterHannibal Regional [id number] Consult [place]Melvin [place] [id number] Cardiology Consult Note Signed Patient: Manolo Roche MR#: [id number] : 1935 Acct:[id number] Age/Sex: 89 / M Adm Date: 5 Loc: 4N Room: 6S2611-0 Type: ADM INOo Attending Dr: Lisa Hidalgo [...] negative unless noted below or in HPI [facility] Medical History Type 1 diabetes mellitus CAD (coronary artery disease) Former smoker BPH (benign prostatic hyperplasia) Urinary frequency Cardiomyopathy wearing external defib Coronary artery disease involving point [place] coronary artery of [place] heart withoutangina pectoris GI bleeding Dupuytren's contracture [...] days #30 tabs 05/07/23 [Rx Confirmed 07/16/24] yrxwnx-movwoyvk-wiosonc 24,000-76,000-120,000 unit capsule,delayed rel (Creon) 2cap PO [...] tab PO DAILY 10/26/23 [History Confirmed 07/16/24] fzavsb-ykkvtjoi-hvbxdak 24,000-76,000-120,000 unit capsule,delayed rel (Creon) 1cap PO [...] # (Auto) N/A Lymph # (Auto) N/A Tillman # (Auto) N/A Eos # (Auto) N/A [...] Code(s): I25.10 - Atherosclerotic heart disease of point lay ir[place] coronary artery without angina pectoris (4) S/P [...] H/o PUD, BPH, Anxiety, depression. Current smoker. [facility] 04/30/23 - Two-vessel coronary artery disease- 100% prox LAD occlusion; 80% D1; LCx has 50% prox stenosis with 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 Echo 04/28/23 - EF 40-45%, mild LVH, trace MR and TR. 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 ECHO in January 2024 at [facility]: EF 30-35% ECHO 03/09/2024: ECHO which showed [...] call with any questions. Follow up with [facility] Cardiology as scheduled. Documented By: Chuck Velasco MD 01/03 1637 Signed By: 07/17/24 1652 [facility]01-06-2025 History and physical note Author Indra Guillory [facility] CenterNote Date/TimeJanuary 2024 1:48[place] [address] Hospitalist H&P Signed Patient: Manolo Roche MR#: [id number] : 1935 Acct:[id number] Age/Sex: 89 / M Adm Date: 5 Loc: 3T Room: 5M9106-4 Type: ADM INOo Attending Dr: Indra Guillory [...] that which is noted above in HPI [facility] Medical History Type 1 diabetes mellitus CAD (coronary artery disease) Former smoker BPH (benign prostatic hyperplasia) Urinary frequency Cardiomyopathy wearing external defib Coronary artery disease involving point [place] coronary artery of [place] heart withoutangina pectoris GI bleeding Dupuytren's contracture [...] days #30 tabs 05/07/23 [Rx Confirmed 07/16/24] mcaemo-qoafrdpg-lzydajn 24,000-76,000-120,000 unit capsule,delayed rel (Creon) 2cap PO [...] tab PO DAILY 10/26/23 [History Confirmed 07/16/24] iiiwvm-uwlbvqkz-tcelrxv 24,000-76,000-120,000 unit capsule,delayed rel (Creon) 1cap PO [...] % (Auto) 18.9 % (.) 07/16/24 12:30 Tillman % (Auto) 12.8 % (.) 07/16/24 12:30 Eos % (Auto) 2.7 % (.) 07/16/24 12:30 Baso % (Auto) 0.8 % (.) 07/16/24 12:30 Nucleat RBC Rel Count 0.2 /100 WBC (0-0.5) 07/16/24 12:30 Neut # (Auto) 4.7 x10E3/uL (1.8-7.7) 07/16/24 12:30 Lymph # (Auto) 1.4 x10E3/uL (1.00-4.8) 07/16/24 12:30 Tillman # (Auto) 0.9 x10E3/uL (0.0-0.8) H 07/16/24 [...] 2 Documented By: Indra Guillory MD 5 1430 Signed By: <Electronically signed by Indra Guillory MD> 07/17/24 0146 [facility] Work Phone: 1(260) 842-594501-06-2025 History and physical [place] [id number] Hospitalist H&P Signed Patient: Manolo Roche MR#: [id number] : 1935 Acct:[id number] Age/Sex: 89 / M Adm Date: 5 Loc: 3T Room: 7M6281-2 Type: ADM INOo Attending Dr: Indra Guillory [...] that which is noted above in HPI [facility] Medical History Type 1 diabetes mellitus CAD (coronary artery disease) Former smoker BPH (benign prostatic hyperplasia) Urinary frequency Cardiomyopathy wearing external defib Coronary artery disease involving point [place] coronary artery of [place] heart withoutangina pectoris GI bleeding Dupuytren's contracture [...] days #30 tabs 05/07/23 [Rx Confirmed 07/16/24] nuwwhr-vgnhjslm-pzpjotl 24,000-76,000-120,000 unit capsule,delayed rel (Creon) 2cap PO [...] tab PO DAILY 10/26/23 [History Confirmed 07/16/24] mnlebh-fvxlzzxz-mapxufo 24,000-76,000-120,000 unit capsule,delayed rel (Creon) 1cap PO [...] % (Auto) 18.9 % (.) 07/16/24 12:30 Tillman % (Auto) 12.8 % (.) 07/16/24 12:30 Eos % (Auto) 2.7 % (.) 07/16/24 12:30 Baso % (Auto) 0.8 % (.) 07/16/24 12:30 Nucleat RBC Rel Count 0.2 /100 WBC (0-0.5) 07/16/24 12:30 Neut # (Auto) 4.7 x10E3/uL (1.8-7.7) 07/16/24 12:30 Lymph # (Auto) 1.4 x10E3/uL (1.00-4.8) 07/16/24 12:30 Tillman # (Auto) 0.9 x10E3/uL (0.0-0.8) H 07/16/24 [...] 2 Documented By: Indra Guillory MD 5 [id number] Signed By: 07/17/24 0148 [facility]01-05-2025 Evaluation note* Diagnosis Onset Date [...] August 31, 2024 9:56amCoronary artery disease involving point [place] coronary artery of [place] heart wiinactiveFebruary 2024 9:56amHypertensioninactive August 31, 2024 9:56amS/P PTCA (percutaneous transluminal coronary angioplasty)inactiveFebruary 2024 9:56amIschemic cardiomyopathyacuteApril 2024 9:10amType 1 diabetes mellitusacuteApril 2024 9:10amAcute GI bleedingresolvedApril 2024 9:10amCoronary artery disease involving point [place] coronary artery of [place] heart wiinactiveApril 2024 9:10amHypertension inactiveApril 2024 9:10amS/P PTCA (percutaneous transluminal coronary angioplasty)inactiveApril 2024 9:10am [facility] Work Phone: 1(536) 205-635101-05-2025 Radiology Diagnostic study [facility] [place] [address] [place] [address] CT Scan Report Signed Patient: Manolo Roche MR#: [id number] : 1935 Acct:[id number] Age/Sex: 89 / M ADM Date: Loc: ER Room: Type: [facility] ER Attending Dr: Copies to: Bertin Smith [...] Sergei Valentin M.D.07/16/2024 4:48 PM Dictation Location: [place] [address] Transcribed By: [facility] 07/16/24 1648 Dictated By: Sergei Valentin II, MD 07/16/24 1636 Signed By: 07/16/24 1648 [facility] Work Phone: [phone] Telephone encounter Note* Telephone Encounter - Gaye Mata RN - 07/13/2024 4:14 PM EST In error [facility]01-02-2025 Miscellaneous Notes* Telephone Encounter - Gaye Mata RN - 07/13/2024 4:14 PM EST In error documented in this encounterOhiohealth Grove City [facility] Hospital01-02-2025 Telephone encounter Note * Telephone Encounter - Gaye Mata RN - 07/13/2024 4:09 PM EST Called and spoke with patient and to schedule Omnipod DASH to Omnipod 5 pump upgrade. Patient states he has the new pods and is wearing the Dexcom G6 CGM. Patient was scheduled for carb counting/insulin pump training for 07/25/24 at 1-[address] [facility]. Location. Patient's Mychart status is PENDING, invite resent via text and to create account. Email sent to [employer] with clinic address, time, date, and what to bring day of training. [facility]01-02-2025 Miscellaneous Notes* Telephone Encounter - Gaye Mata RN - 07/13/2024 4:09 PM EST Called and spoke with patient and to schedule Omnipod DASH to Omnipod 5 pump upgrade. Patient states he has the new pods and is wearing the Dexcom G6 CGM. Patient was scheduled for carb counting/insulin pump training for 07/25/24 at 1-[address] [facility]. Location. Patient's Mychart status is PENDING, invite resent via text and to create account. Email sent to [employer] with clinic address, time, date, and what to bring day of training. documented in this encounterOhiohealth [facility] City [facility]01-02-2025 History of Present illness Narrative* Stephanie Sheridan [...] and see him PRN documented in this encounterHannibal Regional HospitalDhbfagfbft10-36-7547 Miscellaneous Notes* Telephone Encounter - Ayana Zavala [...] training. I reached out to our lead generator and am waiting to hear back, but hopefully can get him set up for training in the next two weeks. documented in this encounterOhiohealth [facility] City [facility]12-26-2024 Telephone encounter Note * Telephone Encounter [...] training. I reached out to our lead generator and am waiting to hear back, but hopefully can get him set up for training in the next two weeks. [facility]12-26-2024 Note* Addendum Note - Ayana Zavala APRN.CNP - 07/06/2024 1:16 PM ESTAddended by: AYANA ZAVALA on: 07/06/2024 01:16 PM Modules accepted: Orders [facility]12-26-2024 Miscellaneous Notes* Addendum Note - Ayana Zavala APRN.CNP - 07/06/2024 1:16 PM ESTAddended by: AYANA ZAVALA on: 07/06/2024 01:16 PM Modules accepted: Orders documented in this encounterOhiohealth Grove City [facility] Hospital12-26-2024 Instructions* Patient Instructions* Ayana Zavala APRN.CNP [...] 1 ounce protein) 150 calories or less [place] (1 slice bread, 1-2 slices turkey or [...] high in calories) 1 small granola bar (Protestant Oats makes smaller granola bar or Special K bar), 10 nuts (try using the 100 calorie snack nut packs to limit the portion) Protein Cereal Bar (such as a ArmedZilla Protein Bar) Low Calorie Protein Shake (EAS Advantage Carb Control), 1 small apple, orange, peach, pear (one that you can tuck in your palm) Georgian Yogurt (has 20 grams of carb, 2 ounces of lean protein) or 6 ounce light yogurt 1/3 cup hummus with celery sticks and baby carrots Low Carb Light Wrap (1-2 slices lean meat), lettuce, tomato, 1 tsp light Nigerien dressing (There are many options which are both high in fiber and low in calories--100 calories or less per wrap) documented in this encounterOhiohealth Grove City [facility] Hospital12-26-2024 History of Present illness Narrative* Ayana [...] ([place]) [address] [place] [address] History of Present Illness Manolo Roche is a 89 year old male presents today for evaluation of DM Type 1. Here with and son. 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 Per patient, this was done due to [...] (PROBIOTIC-10 ORAL) Take by mouth once daily. clrkgo-peniyknx-akmjuew (CREON) 24,000-76,000 -120,000 unit cpDR Take 2 capsules by mouth three times daily with meals. and 1 with snacks (8/day) Digestive Enzyme Mixtures lutein-zeaxanthin 25-5 mg cap Take by mouth once daily. Alternative Therapy - Antioxidant Omeprazole Magnesium 20 mg tablet Take 20 mg by mouth. Gastric Acid Secretion Film Processing Utility Worker - Proton PumpInhibitors (PPIs) PARoxetine (PAXIL) 40 mg tablet Take 40 mg by mouth every morning. Antidepressant - Selective Serotonin Reuptake Inhibitors (SSRIs) tamsulosin (FLOMAX) 0.4 mg Take 0.4 mg by mouth. Prostatic Hypertrophy Agent - zryyz-4-WuvciwurllksBxswryuivqx Physical Activity: No formal program Diet: CHO Controlled Diet SMBG Frequency of Monitoring: Four times a Day Summary of Personal CGM Findings: Dates worn: 06/22/24-07/05/24 CGM Type: Ingenious Medcom 1- CGM recording is adequate for interpretation. [...] ains abnormal data COMPREHENSIVE METABOLIC PANEL Order: [id number] Component Ref Range & Units 5 mo [...] that does not use a race coefficient. [facility] Specimen Collected: 01/24/24 6:05 AM Performed by: Crack Last Resulted: 01/24/24 7:22 AM Received From: [employer] Mobile Result Received: 07/06/24 9:37 AM Impression/Recommendations IMPRESSION [...] LDL , TG LIPID PANEL (EXTERNAL) Order: [id number] Component Ref Range & Units 5 mo ago Cholesterol 150 - 200 mg/dL 97 Low Triglycerides 27 - 150 mg/dL 38 HDL Cholesterol >39 mg/dL 50 VLDL 0 - 30 mg/dL 8 LDL (calc) <130 mg/dL 39 Cholesterol:HDL Ratio 1.0 - 5.0 1.9 Resulting Agency [facility] Specimen Collected: 01/22/24 6:06 AM Performed by: KEZIAJibbigo Last Resulted: 01/22/24 1:58 PM Received From: [employer] Mobile Result Received: 07/06/24 9:37 AM -- This [...] which included preparing to see the patient, capv-yd-afwi patient care, completing clinical documentation, counseling and educating the patient/family/caregiver, ordering medications, tests, or procedures, and communicating results to the mary ent/family/caregiver. Ayana Zavala APRN.KALANI (Signed electronically to expedite mailing) documented in this encounterOhiohealth Grove City [facility] Hospital12-26-2024 NoteHNO ID: [id number] Author: AYANA ZAVALA APRN.KALANI Service: ? Author Type: Nurse Practitioner Type: Progress Notes Filed: 07/06/2024 12:36 Note Text: Endocrinology Initial Diabetes Assessment Manolo Roche is here for a consultation regarding: DM Type 2 My final recommendations will be communicated back to the requesting physician by way of shared Medical record or letter to requesting physician via US mail. PCP is DO Marie Rodriguez ([facility]) [address] [place] [address] History of Present Illness Manolo Roche is a 89 year old male presents today for evaluation of DM Type 1. Here with and son. 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 Per patient, this was done due to [...] (PROBIOTIC-10 ORAL) Take by mouth once daily. zuprsh-thhvjozn-znibahh (CREON) 24,000-76,000 -120,000 unit cpDR Take 2 capsules by mouth three times daily with meals. and 1 with snacks (8/day) Digestive Enzyme Mixtures lutein-zeaxanthin 25-5 mg cap Take by mouth once daily. Alternative Therapy - Antioxidant Omeprazole Magnesium 20 mg tablet Take 20 mg by mouth. Gastric Acid Secretion Film Processing Utility Worker - Proton Pump Inhibitors (PPIs) PARoxetine (PAXIL) 40 mg tablet Take 40 mg by mouth every morning. Antidepressant - Selective Serotonin Reuptake Inhibitors (SSRIs) tamsulosin (FLOMAX) 0.4 mg Take 0.4 mg by mouth. Prostatic Hypertrophy Agent - vaeva-0-Usmrifjkurpp Antagonists Physical Activity: No formal program Diet: [...] meals *Nocturnal hypoglycemia n (more content not included)...[facility]12-23-2024 History of Present illness Narrative* Beto [...] Sheridan in 1-2 weeks. documented in this encounterHannibal Regional [id number] History of Present illness Narrative* Marie Tejeda [...] 06/23/2018 Added automatically from request for surgery [id number] Left ventricular dysfunction Lumbar spondylosis OA (osteoarthritis) Pancreatitis Hospitalized Rotator cuff tendonitis SURGICAL HISTORY: Past Surgical History: Procedure Laterality Date APPENDECTOMY 1948 CERVICAL DISCECTOMY [address] ANGIOGRAM HEART CORONARY 01/21/2024 CT ANGIOGRAM TAVR 01/21/2024 FINE NEEDLE ASPIRATION 04/2018 HEART CATH 04/2023 heart cath HIP SURGERY Right 04/2023 right hip surgery OTHER SURGICAL HISTORY 04/2024 ICD placement PARTIAL HIP ARTHROPLASTY Right 04/12/2023 [place] TONSILLECTOMY & ADENOIDECTOMY <AGE 14 SPLENECTOMY, TOTAL [...] Depression - At risk (01/21/2024) Received from [employer] PHQ-2 Total Score: 3 FAMILY HISTORY: Family [...] mg, 2 times daily before meals pancrelipase, Jkq-Fwsv-Jagy, (Creon) 98225-98828 units capsule TAKE 2 CAPSULES BY MOUTH [...] . Reviewed recent hospitalization documented in this encounterHannibal Regional [id number] Evaluation note* Diagnosis Onset Date Resolution Status [...] 16, 2024 6:08pmPleuritic chest painresolvedJanuary 2024 6:08pm [facility] Work Phone: 1(351) 296-974412-06-2024 Evaluation note* Diagnosis Onset Date Resolution Status [...] GI bleedingresolvedFebruary 2024 9:56amCoronary artery disease involving point lay ira coronary artery of [place] heart wiinactiveFebruary 2024 9:56amHypertensioninactiveFebruary 2024 9:56amS/P PTCA (percutaneous transluminal coronary angioplasty)inactiveFebruary 2024 9:56am [facility] Work Phone: 1(857) 754-725111-19-2024 History of Present illness Narrative* Marie Tejeda, - 05/30/2024 2:00 PM EST Images from the original note were not included. Manolo Roche is a 89 y.o. male presents with chief complaint of Hospital Follow-up HPI: HPI History of Present Illness The patient presents for evaluation of multiple medical concerns. He is managing his insulin pump independently, with an upcoming appointment with his gun fitter on 07/06/2024. His blood sugar levels have [...] Flowsheet Row Patient Outreach from 05/29/2024 in [facility] with Alejandrina Santamaria LPN Hospital Information ED, Hospital or Intermediate Facility Discharge? Hospital Patient has been contacted within two business days of discharge Yes Diagnosis ICD placement Discharge Date 05/25/24 Discharged To: Home Setting Discharge Hospital [facility] Engagement Call Start Time 1019 [...] prostatic hyperplasia) COPD (chronic obstructive pulmonary disease) ([facility]) Diabetes mellitus ([facility]) 10/04/2019 Ground glass opacity present on imaging of lung 02/05/2023 Hypertension (CMS/HCC) ICD (implantable cardioverter-defibrillator) in place IPMN (intraductal papillary mucinous neoplasm) 06/23/2018 Added automatically from request for surgery [id number] Left ventricular dysfunction Lumbar spondylosis OA (osteoarthritis) Pancreatitis Hospitalized Rotator cuff tendonitis SURGICAL HISTORY: Past Surgical History: Procedure Laterality Date APPENDECTOMY 1949 CERVICAL DISCECTOMY [address] ANGIOGRAM HEART CORONARY 01/21/2024 CT ANGIOGRAM TAVR 01/21/2024 FINE NEEDLE ASPIRATION 04/2018 HEART CATH 04/2023 heart cath HIP SURGERY Right 04/2023 right hip surgery PARTIAL HIP ARTHROPLASTY Right 04/12/2023 MN TONSILLECTOMY & ADENOIDECTOMY <AGE 14 SPLENECTOMY, 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 [facility] VASECTOMY 1989 SOCIAL HISTORY: Social History [...] Depression - At risk (01/21/2024) Received from [employer] PHQ-2 Total Score: 3 FAMILY HISTORY: Family [...] mg, 2 times daily before meals pancrelipase, Gzr-Ytdf-Gwed, (Creon) 95856-01277 units capsule TAKE 2 CAPSULES BY MOUTH [...] next month until his appointment with the gun fitter on July 06, 2024. Endo apt at [...] assistance of MARYANN Hedrick. documented in this encounterHannibal Regional [id number] [place] [address] Discharge Summary Signed Patient: Manolo Roche MR#: [id number] : 1935 Acct:[id number] Age/Sex: 89 / M Adm Date: 4 Loc: Room: [address] [place] [address]: Abdulaziz Root MD Copies to: [...] DM s/p pancreatectomy, BPH who initially presented [facility] in Apr 2023 following a mechanical [...] for discharge and will follow-up with his furniture upholsterer as well as electrophysiology in the pacemaker [...] on June 01, 2024 at 1:00pm at [facility] - Device check: Will [...] Sodium 138, Potassium 4.0, Chloride 103, Carbon Ffmcspl53.5, Anion Gap 11.5, BUN 19, Creatinine 0.75, [...] 05/12 11/02 1135 Signed By: 05/25/24 1139 [facility]11-14-2024 [place] [address] Cardiology Progress Note Signed Patient: Manolo Roche MR#: [id number] : 1935 Acct:[id number] Age/Sex: 89 / M Adm Date: 4 Loc: Room: [address] [place] [address] Type: ADM IN Attending Dr: Abdulaziz Root [...] 05/12 11/02 1035 Signed By: 05/25/24 1041 [facility]11-13-2024 Discharge summary Author Chuck Velasco [facility] CenterNote Date/TimeNovember 2023 11:39am [place] [address] Discharge Summary Signed Patient: Manolo Roche MR#: [id number] : 1935 Acct:[id number] Age/Sex: 89 / M Adm Date: 4 Loc: Room: [address] [place] [address]: Abdulaziz Root MD Copies to: [...] DM s/p pancreatectomy, BPH who initially presented [facility] in Apr 2023 following a mechanical [...] for discharge and will follow-up with his furniture upholsterer as well as electrophysiology in the pacemaker [...] on June 01, 2024 at 1:00pm at [facility] - Device check: Will [...] Sodium 138, Potassium 4.0, Chloride 103, Carbon Zapgxmy06.5, Anion Gap 11.5, BUN 19, Creatinine 0.75, [...] <Electronically signed by Chuck Velasco MD> 05/25/24 1137 [facility] Work Phone: 1([phone] 991-158110-16-2024 Evaluation note* Author Anat [facility] 2023 3:55pm# CAD s/p PCI in Jul 2023. 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 Current smoker. [facility] 04/30/23 - Two-vessel coronary artery disease- 100% prox LAD occlusion; 80% D1; LCx has 50% prox stenosis with 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 Echo 04/28/23 - EF 40-45%, mild LVH, trace MR and TR. 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 EKG 09/07/23 - sinus peace 56 bpm, anterolateral TWI. EKG 09/08/23 - sinus peace 58 bpm, anterolateral and inferior TWI. ECHO in January 2024 at [facility]: EF 30-35% ECHO 03/09/2024: ECHO which showed [...] up in 2 months in HF clinic. [facility] Work Phone: 1([phone]) 176-786610-16-2024 Evaluation note* Author Anat Perez [facility] 2023 2:55pm# CAD s/p PCI in Jul 2023. 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 Current smoker. [facility] 04/30/23 - Two-vessel coronary artery disease- 100% prox LAD occlusion; 80% D1; LCx has 50% prox stenosis with 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 Echo 04/28/23 - EF 40-45%, mild LVH, trace MR and TR. 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 EKG 09/07/23 - sinus peace 56 bpm, anterolateral TWI. EKG 09/08/23 - sinus peace 58 bpm, anterolateral and inferior TWI. ECHO in January 2024 at [facility]: EF 30-35% ECHO 03/09/2024: ECHO which showed [...] up in 2 months in HF clinic. [facility] Work Phone: [phone] 876-136110-16-2024 Chief complaint+Reason for visit Narrative * Chief [...] Type 1 diabetes mellitus July 16 6:08pm [facility] Work Phone: 1([phone]) 680-684610-16-2024 Chief complaint+Reason for visit Narrative * Chief [...] Type 1 diabetes mellitus July 16 6:08pm [facility] Work Phone: 1([phone]) 893-647810-14-2024 History of Present illness Narrative* Agnes Moreno, [...] 06/23/2018 Added automatically from request for surgery [id number] Left ventricular dysfunction Lumbar spondylosis OA (osteoarthritis) Pancreatitis Hospitalized Rotator cuff tendonitis SURGICAL HISTORY: Past Surgical History: Procedure Laterality Date APPENDECTOMY 1949 CERVICAL DISCECTOMY [address] ANGIOGRAM HEART CORONARY 01/21/2024 CT ANGIOGRAM TAVR 01/21/2024 FINE NEEDLE ASPIRATION 04/2018 HEART CATH 04/2023 heart cath HIP SURGERY Right 04/2023 right hip surgery PARTIAL HIP ARTHROPLASTY Right 04/12/2023 MN TONSILLECTOMY & ADENOIDECTOMY <AGE 14 SPLENECTOMY, TOTAL [...] Depression - At risk (01/21/2024) Received from [employer] PHQ-2 Total Score: 3 FAMILY HISTORY: Family [...] mg, 2 times daily before meals pancrelipase, Wnr-Zmnn-Uegm, (Creon) 25418-88752 units capsule TAKE 2 CAPSULES BY MOUTH [...] He has been in contact with his java developer consultant, but has notreceived any further communication. He [...] 06/23/2018 Added automatically from request for surgery [id number] Left ventricular dysfunction Lumbar spondylosis OA (osteoarthritis) Pancreatitis Hospitalized Rotator cuff tendonitis SURGICAL HISTORY: Past Surgical History: Procedure Laterality Date APPENDECTOMY 194 CERVICAL DISCECTOMY [address] ANGIOGRAM HEART CORONARY 01/21/2024 CT ANGIOGRAM TAVR 01/21/2024 FINE NEEDLE ASPIRATION 04/2018 HEART CATH 04/2023 heart cath HIP SURGERY Right 04/2023 right hip surgery PARTIAL HIP ARTHROPLASTY Right 04/12/2023 MN TONSILLECTOMY & ADENOIDECTOMY <AGE 14 SPLENECTOMY, TOTAL [...] Depression - At risk (01/21/2024) Received from [employer] PHQ-2 Total Score: 3 FAMILY HISTORY: Family [...] mg, 2 times daily before meals pancrelipase, Uxy-Kxfs-Nxji, (Creon) 08787-06720 units capsule TAKE 2 CAPSULES BY MOUTH [...] blood sugar levels. A referral to an gun fitter, Dr. Liyah Yeung, has been made to [...] for follow-up. Diagnosis Plan 1. Pancreatic insufficiency ([facility]/HCC) Ambulatory referral to Endocrinology 2. Coronary arteriosclerosis ([facility]) metoprolol succinate XL (Toprol-XL) 25 MG 24 hr tablet 3. 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([facility]) Ambulatory referral to Endocrinology 4. 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 I am following Dr Tejeda's established plan of care for these issues. Dr Tejeda is in the office suite today and is supervising patient care. documented in this encounterHannibal Regional [id number] History of Present illness Narrative* Marie Tejeda, [...] was black, leading to his transfer to [facility]. He had an ulnar fracture and [...] prostatic hyperplasia) COPD (chronic obstructive pulmonary disease) ([facility]) Diabetes mellitus (CMS/HCC) 10/04/2019 Ground glass opacity present on imaging of lung 02/05/2023 Hypertension (CMS/HCC) IPMN (intraductal papillary mucinous neoplasm) 06/23/2018 Added automatically from request for surgery [id number] Left ventricular dysfunction Lumbar spondylosis OA (osteoarthritis) Pancreatitis Hospitalized Rotator cuff tendonitis SURGICAL HISTORY: Past Surgical History: Procedure Laterality Date APPENDECTOMY 194 CERVICAL DISCECTOMY [address] ANGIOGRAM HEART CORONARY 01/21/2024 CT ANGIOGRAM TAVR 01/21/2024 FINE NEEDLE ASPIRATION 04/2018 HEART CATH 04/2023 heart cath HIP SURGERY Right 04/2023 right hip surgery PARTIAL HIP ARTHROPLASTY Right 04/12/2023 MN TONSILLECTOMY & ADENOIDECTOMY <AGE 14 SPLENECTOMY, TOTAL [...] Not at risk (04/05/2024) Received from [facility] PHQ-2 Patient Health Questionnaire-2 Score: 0 Recent Concern: Depression - At risk (01/21/2024) Received from [employer] PHQ-2 Total Score: 3 FAMILY HISTORY: [...] Sublingual NovoLOG FLEXPEN 100 UNIT/ML pen pancrelipase, Hin-Hxhx-Shsp, (Creon) [id number] units capsule TAKE 2 CAPSULES BY MOUTH [...] mellitus with hyperosmolarity without nonketotic hyperglycemic hyperosmolar coma([facility]) POCT glycosylated hemoglobin (Hb A1C) docked device 3. Generalized anxiety disorder ([facility]) PARoxetine (Paxil) 40 MG tablet 4. Need for immunization against influenza Flu vaccine, trivalent, adjuvanted, preservative free 5. Acquired total absence of pancreas 6. Benign prostatic hyperplasia with urinary frequency 7. 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 ([facility]) 8. 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 H pylori ulcer see note to GI 10. 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 I recommended referral to specialty clinic for DM/pancreatectomy 11. Insulin pump in place 12. Pancreatic insufficiency ([facility]) 13. Duodenal ulcer see letter to GI cont PPI stop carafate - out of concern for binding meds 14. Medicare annual wellness visit, subsequent 15. ACP (advance care planning) 16. Bradycardia on low dose BB no changes for now 17. Orthostatic hypotension all BP meds stopped except for BB 18. Acute on chronic systolic congestive heart failure ([facility]) NYHA 3 Stgae D educated [...] A note will be sent to the java developer consultant to discuss the possibility of using a [...] Wednesday for follow-up. 90+' documented in this encounterHannibal Regional [id number] Note Attestation signed by Patrick Beard MD at 04/14/2024 12:12 PM I saw and evaluated the patient. I reviewed the resident's/fellow's note and agree with the findings and plan documents in the resident's/fellow's note [facility] Gastroenterology New Patient Visit - History [...] jejunostomy and splenectomy in 2019 at [facility] in [place]. Patient was referred for the gastroenterology clinic to be established as a new patient regarding his history of peptic ulcer disease with a recent EGD finding in [facility] in February 04, 2024 after he was [...] follow-up scheduled. PREVIOUS LABS/IMAGING/ENDOSCOPY: EGD 02/05/2024 in [facility]: Showing gastritis with anastomosis ulcer with visible [...] Type 1 diabetes mellitus (CMS/HCC) Diabetes mellitus ([facility]/HCC) Acute GI bleeding Anemia of chronic disease Postoperative anemia Arthralgia of hip ASCVD (arteriosclerotic cardiovascular disease) Barretts esophagus Benign prostatic hyperplasia BMI 20.0-20.9, adult Closed intertrochanteric fracture of right hip ([facility]/HCC) Closed nondisplaced fracture of fourth cervical vertebra with routine healing Fracture of C5 vertebra, closed ([facility]/HCC) Current moderate episode of major 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 (CMS/HCC) Dyslipidemia E coli infection Elevated d-dimer Essential hypertension Fracture of cervical spinous process (CMS/HCC) Fractured hip ([facility]/HCC) Hip fracture due to osteoporosis, sequela Anxiety and depression Generalized anxiety disorder Gram negative sepsis ([facility]/HCC) Duodenal ulcer H pylori ulcer Stomach ulcer H/O splenectomy Helicobacter pylori (H. 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 ([facility]/HCC) Hypomagnesemia Impaired mobility and activities of daily living Insulin pump in place IPMN (intraductal papillary mucinous neoplasm) Iron deficiency Ischemic myocardial dysfunction Left carpal tunnel syndrome Left radial fracture Leukemoid reaction Melena Mild left ventricular systolic dysfunction (LVSD) Mixed hyperlipidemia Need for immunization against influenza Non-ST elevation (NSTEMI) myocardial infarction ([facility]/HCC) Nonsustained monomorphic ventricular tachycardia ([facility]/HCC) Osteoporosis Perforated viscus Pneumonia of both lungs due to infectious organism Protein-calorie malnutrition, mild ([facility]/HCC) Pyelonephritis Recent fracture of hip ([facility]/HCC) Smoker Sepsis without acute organ dysfunction ([facility]/HCC) Sepsis due to Escherichia coli without acute organ dysfunction ([facility]/HCC) S/P PTCA (percutaneous transluminal coronary angioplasty) Sepsis due to urinary tract infection ([facility]) Traumatic rhabdomyolysis ([facility]) Two-vessel coronary artery disease Closed lumbar vertebral fracture ([facility]) Past Medical History: History reviewed. No pertinent past medical history. Past Surgical History: History reviewed. No p (more content not included)...[facility]09-04-2024 Anthony left a message last week for funding coordinator Irish with [facility] regarding a referral from [...] Valerio Plummer and call back # of [phone]. [facility]07-29-2024 Progress note Author Anat Perez [facility] February 07, 2024 5:07pmNote Date/TimeJuly 2023 3:18pm[place] [address] Cardiology Progress Note Signed Patient: Manolo Roche MR#: [id number] : 1935 Acct:[id number] Age/Sex: 88 / M Adm Date: 4 Loc: Room: [address] [place] [address] Type: ADM IN Attending Dr: Warren Gross DO Copies to: ~ Date of Service: 02/07/2024 Subjective Interval history: Mr. Roche is a 88yo M with the PMH below who is admitted to [facility] on 02/06/24 for melanotic stool and [...] ordered for him after recent hospital stayin [place]. On admission, stool occult blood was positive. [...] MPV Neut % (Auto) Lymph % (Auto) Tillman % (Auto) Eos % (Auto) Baso % (Auto) Nucleat RBC Rel Count Neut # (Auto) Lymph # (Auto) Tillman # (Auto) Eos # (Auto) Baso # (Auto) PHA Creatinine Clear Sodium Potassium Chloride Carbon Dioxide Anion Gap BUN Creatinine Est GFR (CKD-EPI) Glucose POC Glucose 377 POC Glucose Comment Glu2: cleaned meter Estimat Average Glucose 194 Hemoglobin A1c 8.4 H Calcium Magnesium Blood Type A Positive Antibody Screen Negative Crossmatch ([facility]) See Detail 02/06/24 02/06/24 02/06/24 20:51 20:51 20:53 Corrected WBC Uncorrected WBC Count RBC Hgb Hct MCV MCH MCHC RDW Plt Count MPV Neut % (Auto) Lymph % (Auto) Tillman % (Auto) Eos % (Auto) Baso % (Auto) Nucleat RBC Rel Count Neut # (Auto) Lymph # (Auto) Tillman # (Auto) Eos # (Auto) Baso # (Auto) PHA Creatinine Clear Sodium Potassium Chloride Carbon Dioxide Anion Gap BUN Creatinine Est GFR (CKD-EPI) Glucose POC Glucose 547 H* 523 H* POC Glucose Comment Will notify dr/rn Glu2: cleaned meter Estimat Average Glucose Hemoglobin A1c Calcium Magnesium Blood Type Antibody Screen Crossmatch ([facility]) 02/06/24 02/06/24 02/06/24 20:53 20:53 22:12 Corrected WBC Uncorrected WBC Count RBC Hgb 9.0 L Hct 26.4 L MCV MCH MCHC RDW Plt Count MPV Neut % (Auto) Lymph % (Auto) Tillman % (Auto) Eos % (Auto) Baso % (Auto) Nucleat RBC Rel Count Neut # (Auto) Lymph # (Auto) Tillman # (Auto) Eos # (Auto) Baso # (Auto) PHA Creatinine Clear Sodium Potassium Chloride Carbon Dioxide Anion Gap BUN Creatinine Est GFR (CKD-EPI) Glucose POC Glucose POC Glucose Comment Will notify dr/rn Follow hypoglycemic Estimat Average Glucose Hemoglobin A1c Calcium Magnesium Blood Type Antibody Screen Crossmatch ([facility]) 02/07/24 02/07/24 02/07/24 06:21 06:35 11:12 Corrected WBC 7.2 Uncorrected WBC Count 7.2 RBC 3.24 L Hgb 8.7 L Hct 25.3 L MCV 78.1 L MCH 26.7 L MCHC 34.2 RDW 19.3 H Plt Count 184 MPV 10.8 H Neut % (Auto) 47.8 Lymph % (Auto) 28.8 Tillman % (Auto) 16.7 Eos % (Auto) 5.5 Baso % (Auto) 1.2 Nucleat RBC Rel Count 0.2 Neut # (Auto) 3.4 Lymph # (Auto) 2.1 Tillman # (Auto) 1.2 H Eos # (Auto) [...] 1.6 L Blood Type Antibody Screen Crossmatch ([facility]) A&P - Cardiology (1) Acute GI bleeding: Code(s): K92.2 - Gastrointestinal hemorrhage, unspecified (2) Elevated troponin: Code(s): R79.89 - Other specified abnormal findings of blood chemistry (3) Coronary artery disease involving point [place] ir[place] coronary artery of point [place] heart without angina pectoris: Code(s): I25.10 - Atherosclerotic heart disease of point [place] coronary artery without angina pectoris (4) S/P PTCA (percutaneous transluminal coronary angioplasty): Code(s): Z98.61 - Coronary angioplasty status Plan # Acute recurrent GI Bleed in setting of known PUD (recent EGD on 09/01/23 found a 2 cm ulcer with anonbleeding visible vessel at the bulb of the duodenum). # CAD s/p PCI in Jul 2023. # Ischemic Cardiomyopathy s/p LifeVest ordered in [place] - Well compensated. # Non-ACS myocardial injury - Is due to demand-supply mismatch 2/2 acute anemia. 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 Current smoker. [facility] 04/30/23 - Two-vessel coronary artery disease- 100% prox LAD occlusion; 80% D1; LCx has 50% prox stenosis with 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 Echo 04/28/24 - EF 40-45%, mild LVH, trace MR and TR. 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 EKG 09/07/23 - sinus peace 56 bpm, anterolateral TWI. EKG 09/08/23 - sinus peace 58 bpm, anterolateral and inferior TWI. - Pt is currently 6 months out from PCI. Will stop Plavix and if Hb remains stable, continue ASA 81mg daily. - Reviewed records from hospitalization at [facility] in [place]. He was hospitalized for NSTEMI and PNA. [...] follow Documented By: Anat Perez MD 02/07/24 7858 Signed By: <Electronically signed by Anat Perez MD> 02/07/24 1704 [facility] Work Phone: 1(335) 365-878607-29-2024 Progress note Author Warren Gross [facility] February 07, 2024 12:28pmNote Date/TimeJuly 2023 12:29[place] [address] Hospitalist Progress Note Signed Patient: Manolo Roche MR#: [id number] : 1935 Acct:[id number] Age/Sex: 88 / M Adm Date: 4 Loc: Room: [address] [place] [address] Type: ADM IN Attending Dr: Warren Gross [...] Insuln.Pen SUBCUT 02/05/25 21:59 Not Given TID.WM.HS [facility] Protocol Insulin Aspart 0 units 02/07/24 08:00 02/07/24 10:58 Insulin Aspart 300 Units/3 Ml Insuln.Pen SUBCUT 02/06/25 07:59 Not Given TID.WITH.MEALS [facility] Protocol Insulin Glargine 6 units 02/07/24 09:00 [...] (1,000 Units) Tablet PO 02/06/25 08:59 DAILY [facility] A&P - Hospitalist Assessment/Plan (1) Acute GI [...] <Electronically signed by Warren Gross DO> 02/07/241227 [facility] Work Phone: 1(189) 786-487907-29-2024 [facility]-28-2024 Progress note Author Sushant Cordon [facility] February 06, 2024 9:45pmNote Date/TimeJuly 2023 9:45[place] [address] Progress Note Signed Patient: Manolo Roche MR#: [id number] : 1935 Acct:[id number] Age/Sex: 88 / M Adm Date: 4 Loc: Room: [address] [place] [address] Type: ADM IN Attending Dr: Nayeli Jimenez MD Copies to: ~ Date of Service: 02/06/2024 Progress Narrative Note PROGRESS NOTE Progress Note: Today the patient has developed progressively worsening hyperglycemia. The patient has history of total pancreatectomy a few years ago when he lived [facility]. He uses a G7 continuous glucose [...] <Electronically signed by Sushant Cordon DO> 02/06/242144 [facility] Work Phone: 1([phone]) 137-983907-28-2024 Consult note Author Chuck Velasco [facility] February 06, 2024 2:44pmNote Date/TimeJuly 2023 2:36[place] [address] Cardiology Consult Note Signed Patient: Manolo Roche MR#: [id number] : 1935 Acct:[id number] Age/Sex: 88 / M Adm Date: 4 Loc: 3T Room: [address] [place] [address] Type: ADM IN Attending Dr: Nayeli Jimenez MD Copies to: MD Nayeli Varner MD Robert J Vaschak,DO~ Cardiology HPI History of Present Illness Consult Date: 02/06/24 Reason for Consult: GI Bleeding HPI: Mr. Roche is a 88yo M with the PMH below who is admitted to [facility] on 02/06/24 for melanotic stool and [...] ordered for him after recent hospital stay[place]. On admission, stool occult blood was positive. Severe anemia of 7.7, with normal Plt of 277. Troponin was mildly elevated at 50--77--85. EKG shows sinus peace with anterolateral and inferior TWI. Review of Systems Review of Systems All other systems reviewed & are negative unless noted below or in HPI [facility] Medical History Hypertension CAD (coronary artery disease) [...] days #30 tabs 05/07/23 [Rx Confirmed 02/05/24] iaocox-tlyytibu-wewbqpp 24,000-76,000-120,000 unit capsule,delayed rel (Creon) 2cap PO [...] unit subcut HS 08/31/23 [History Confirmed 10/28/23] suyerlycomdt-qhqknbgv-btrsfb tablet (Multivitamin 50 Plus tablet) 1 tab [...] 90 days #180tabs 11/11/23 [Rx Confirmed 10/28/23] bzujqf-odkxfhgx-xkyfmjl 24,000-76,000-120,000 unit capsule,delayed rel (Creon) 1cap PO [...] Lymph # (Auto) 1.5 1.8 (1.00-4.8) x10E3/uL Tillman # (Auto) 0.4 0.7 (0.0-0.8) x10E3/uL Eos [...] 8 MG/HR 10 mls/hr IV .Q10H TAVIA Rx#:[id number] Sodium Chloride 0.9% 1,000 ml 1 1000 / 1000 ,000 ml @ 999 mls/hr IV .Q1H1M ONE Rx#:[id number] Oral 0 / 0 Output: Urine 350 / 350 Other: Total Intake (Blood Product) Cumulative Amt Leukocyte Reduced Rbc Unit 325 [id number] Leukocyte Reduced Rbc Unit 325 [id number] Weight 65.5 kg 65.5 kg Date of Last Bowel Movement 02/06/24 02/06/24 Lab 02/05/24 19:34 PT 15.5 H INR 1.3 APTT 23.6 L A&P - Cardiology (1) Acute GI bleeding: Code(s): K92.2 - Gastrointestinal hemorrhage, unspecified (2) Elevated troponin: Code(s): R79.89 - Other specified abnormal findings of blood chemistry (3) Coronary artery disease involving point lay ira coronary artery of point lay ira heart without angina pectoris: Code(s): I25.10 - Atherosclerotic heart disease of point lay ira coronary artery without angina pectoris (4) S/P PTCA (percutaneous transluminal coronary angioplasty): Code(s): Z98.61 - Coronary angioplasty status Plan # Acute recurrent GI Bleed in setting of known PUD (recent EGD on 09/01/23 found a 2 cm ulcer with anonbleeding visible vessel at the bulb of the duodenum). # CAD s/p PCI in Jul 2023. # Cardiomyopathy s/p LifeVest ordered in [place] - Well compensated. # Non-ACS myocardial injury - Is due to demand-supply mismatch 2/2 acute anemia. 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 Current smoker. [facility] 04/30/23 - Two-vessel coronary artery disease- 100% prox LAD occlusion; 80% D1; LCx has 50% prox stenosis with 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 Echo 04/28/24 - EF 40-45%, mild LVH, trace MR and TR. 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 EKG 09/07/23 - sinus peace 56 bpm, anterolateral TWI. EKG 09/08/23 - sinus peace 58 bpm, anterolateral and inferior TWI. - Get records from [place] on recent hospitalization and LifeVest. - GI [...] signed by Chuck Velasco MD> 02/06/24 1444 [facility] Work Phone: 1(941) 306-246807-28-2024 Progress note Author Nayeli Jimenez [facility] February 06, 2024 12:35pmNote Date/TimeJuly 2023 12:35[place] [address] Hospitalist Progress Note Signed Patient: Manolo Roche MR#: [id number] : 1935 Acct:[id number] Age/Sex: 88 / M Adm Date: 4 Loc: 3T Room: 5J8264-9 Type: ADM IN Attending Dr: Nayeli Jimenez MD Copies to: ~ Date of Service: 02/06/2024 Subjective Subjective Narrative: Patient was seen evaluated at bedside, remained afebrile, hemodynamically appears stable, patient denies any BMs while here. Seen by GI team recommended cardiac clearance given his cardiac hx. Will obtain records from [place] as pt recently been there for concerns [...] Syringe IV-PUSH 02/05/25 05:59 Not Given QSHIFT TAVAI Sucralfate 1 gm 07/28/24 12:00 Sucralfate 1 Gm Tablet PO 02/05/25 11:59 Q6HR TAVIA Tamsulosin HCl 0.4 mg 02/06/24 09:00 02/06/24 09:23 Tamsulosin 0.4 Mg Cap.Er.24h PO 02/05/25 08:59 0.4 mg DAILY TAVIA Administration Vitamin D 50 mcg 02/07/24 09:00 Cholecalciferol 25 Mcg (1,000 Units) Tablet PO 02/06/25 08:59 DAILY [facility] A&P - Hospitalist Assessment/Plan (1) Acute GI [...] signed by Nayeli Jimenez MD> 02/06/24 1235 [facility] Work Phone: 1(453) 903-433307-28-2024 Consult note Author Manuel Barraza [facility] February 06, 2024 9:36amNote Date/TimeJuly 2023 9:[address] [place] [address] Gastroenterology Consult Note Signed Patient: Manolo Roche MR#: [id number] : 1935 Acct:[id number] Age/Sex: 88 / M Adm Date: 4 Loc: Room: [address] [place] [address] Type: ADM IN Attending Dr: Nayeli Jimenez MD Copies to: MD Nayeli Rendon MD Robert J Vaschak,DO~ HPI Data of Consult Date of Consultation: 02/06/24 Requesting Physician: Nayeli Jimenez MD Consult Narrative History of present illness: Mr. Roche is a 88 year old male admitted with syncopal episode. Briefly, the patient presented earlier this month to the [facility] after being found down, unresponsive noted low blood sugars. He was ultimately transferred to [facility] in [place]. Noted a nondisplaced ulnar fracture, atypical PNA, [...] weeks ago, prior to his admission in [place]. She does not think he is on his PPI any longer, she believes he completed treatment with that. Remote colonoscopy she reports as normal. On admission BPs initially soft, but fluid responsive. Hgb down ~2 gram from discharge from [place] 2 weeks ago. Uptrending troponin. Havingsome dynamic [...] Hematologic/Lymphatic: Denies easy bruising and Denies lymphadenopathy [facility] Medical History (Updated 02/06/24 @ 02:47 by [...] days #30 tabs 05/07/23 [Rx Confirmed 02/05/24] biulzx-iuhhbcuw-dnefovg 24,000-76,000-120,000 unit capsule,delayed rel (Creon) 2cap PO [...] unit subcut HS 08/31/23 [History Confirmed 10/28/23] nyhlcaxhpzpy-jjpgxefi-suveqs tablet (Multivitamin 50 Plus tablet) 1 tab [...] 90 days #180tabs 11/11/23 [Rx Confirmed 10/28/23] kfupmc-ioovgqzf-sxcrfsy 24,000-76,000-120,000 unit capsule,delayed rel (Creon) 1cap PO [...] % (Auto) 78.3 Lymph % (Auto) 16.3 Tillman % (Auto) 4.8 Eos % (Auto) 0.2 Baso % (Auto) 0.4 Nucleat RBC Rel Count 0.1 Neut # (Auto) 7.0 Lymph # (Auto) 1.5 Tillman # (Auto) 0.4 Eos # (Auto) 0.0 [...] Type A Positive Antibody Screen Negative Crossmatch ([facility]) See Detail 02/06/24 06:56 Corrected WBC Uncorrected WBC Count RBC Hgb Hct MCV MCH MCHC RDW Plt Count MPV Neut % (Auto) Lymph % (Auto) Tillman % (Auto) Eos % (Auto) Baso % (Auto) Nucleat RBC Rel Count Neut # (Auto) Lymph # (Auto) Tillman # (Auto) Eos # (Auto) Baso # [...] signed by Manuel Barraza MD> 02/06/24 0936 [facility] Work Phone: 1(821) 390-256707-28-2024 History and physical note Author Sushant Cordon [facility] February 06, 2024 2:52amNote Date/TimeJuly 2023 2:22[place] [address] Hospitalist H&P Signed Patient: Manolo Roche MR#: [id number] : 1935 Acct:[id number] Age/Sex: 88 / M Adm Date: 4 Loc: Room: [address] [place] [address] Type: ADM IN Attending Dr: Sushant Cordon [...] for him after recent hospital stay in [place]. 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 He describes that yesterday was terrible [...] state that after coming home from the [facility] with the LifeVest he beganusing Aleve due to the discomfort theLifeVest was causing on his back. He doessay I never took more than prescribed. He does recall getting the endoscopy by Dr. Shearer back in November but did not really seem to fully comprehend the results. He says that now a [facility] hospital was he originally went to [facility] where theydid an EKG and then promptly transported him to [facility]. At [facility] he does not know all the testing [...] except as mentioned elsewhere in the documentation. 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 He is wearing the [employer]. Jean Paul continuous glucose monitoring device on [...] % (Auto) 16.3 % (.) 02/05/24 19:34 Tillman % (Auto) 4.8 % (.) 02/05/24 19:34 Eos % (Auto) 0.2 % (.) 02/05/24 19:34 Baso % (Auto) 0.4 % (.) 02/05/24 19:34 Nucleat RBC Rel Count 0.1 /100 WBC (0-0.5) 02/05/24 19:34 Neut # (Auto) 7.0 x10E3/uL (1.8-7.7) 02/05/24 19:34 Lymph # (Auto) 1.5 x10E3/uL (1.00-4.8) 02/05/24 19:34 Tillman # (Auto) 0.4 x10E3/uL (0.0-0.8) 02/05/24 19:34 [...] <Electronically signed by Sushant Cordon DO> 02/06/24251 [facility] Work Phone: 1(963) 171-743004-11-2024 Evaluation note* Author Alberto Shearer [facility] CenterAuthoredApril 2023 8:54al97-ueru-sep man with history of coronary artery disease s/p stent placement on 07/16/2023 who was recently hospitalized for melena s/p EGD with control of bleeding who came today for follow-up. 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 pylori, patient completed quadruple therapy, he has been on Protonix 40 mg twice daily since the EGD. -Will arrange for EGD to assess ulcer healing and to confirm H. pylori eradication. -I discussed with the patient possible Lewis's diagnosis and recommended EGD every 3 to 5 years. 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 He will follow up with primary Cardiology next week [facility] Work Phone: 1(205) 988-671002-05-2024 Miscellaneous Notes* Assessment & Plan Note - [...] Problem(s): ASHD (arteriosclerotic heart disease) Jun 2023 [facility] presented due to mechanical fall. Incidental troponin elevations Echo EF 40-45% Cath: two-vessel disease; ef 40% anterior hypokinesis Elective PCI: Jul LAD: unsuccessful attempt - WORK CAR OPERATOR oDiag PCI/Mark 3.5 x 18mm Daily activity < 4 METs documented in [facility] Work Phone: 1(712) 298-248702-05-2024 Evaluation + Plan note* Assessment & Plan Note - JAMIE Miramontes - 08/16/2023 2:37 PM ESTAssociated Problem(s): ASHD (arteriosclerotic heart disease) Jun 2023 [facility] presented due to mechanical fall. Incidental troponin elevations Echo EF 40-45% Cath: two-vessel disease; ef 40% anterior hypokinesis Elective PCI: Jul LAD: unsuccessful attempt - WORK CAR OPERATOR oDiag PCI/Barnsdall 3.5 x 18mm Daily activity < 4 METs [facility] Work Phone: 1([phone]) 195-187002-05-2024 History of Present illness Narrative* JAMIE Miramontes [...] to date. Will be seeking POCfrom primary furniture upholsterer. Patient reports that overall has complaint(s) of [...] to Plavix. Will schedule follow-up with primary furniture upholsterer Dr. Perez next week. Review of Systems [...] Assessment: ASHD (arteriosclerotic heart disease) Jun 2023 [facility] presented due to mechanical fall. Incidental troponin elevations Echo EF 40-45% Cath: two-vessel disease; ef 40% anterior hypokinesis Elective PCI: Jul LAD: unsuccessful attempt - WORK CAR OPERATOR oDiag PCI/Mark 3.5 x 18mm Daily activity [...] to the office Sammy Berman MSN, JAMIE, PMHNP-[facility] Please excuse any errors in grammar or translation related to this dictation. Voice recognition software was utilized to prepare this document. documented in [facility] Work Phone: 1(451) 231-319202-05-2024 Instructions* Patient Instructions* JAMIE Miramontes - 08/16/2023 [...] medications to the office documented in [facility] Work Phone: 1([phone]) 189-582001-05-2024 Discharge summary Author Federico Ryan [facility] July 16, 2023 4:09pmNote Date/TimeJan2023 4:06pmMelvin V[place] [id number] Discharge Summary Signed Patient: Manolo Roche MR#: [id number] : 1935 Acct:[id number] Age/Sex: 88 / M Adm Date: 4 [...] Final Discharge Diagnosis: 1. Recent non-ST elevation NV associated with fall and hip fracture 2. Severe two-vessel ASHD involving mid LAD and diagonal branch bifurcation 3. Mild LV dysfunction 4. Successful PCI ostial diagonal branch into the LAD with 3.5 x 18 mm Barnsdall stent 5. Chronic total occlusion proximal/mid LAD Summary Hospital Course Hospital course: 88-year-old gentleman with recent fall and hip fracture complicated by non-ST elevation NV, abnormal stress imaging and subsequent diagnosis of severe two- vessel coronary artery disease involving midLAD and large diagonal branch bifurcation. The LAD itself is subtotally occluded with the diagonal branch origin being 80 to 85%. Patient was referred for elective attempt at crossing the LAD with possible revascularization as well as revascularization of the ostial diagonal branch. LAD was attempted and deemed a WORK CAR OPERATOR and therefore aborted, diagonal branch was stented with a 3.5 x 18 mm Barnsdall stent without complications Patient will be discharged [...] % (Auto) 75.7, Lymph % (Auto) 8.4, Tillman % (Auto) 15.1, Eos % (Auto) 0.3, Baso % (Auto) 0.5, Nucleat RBC Rel Count 0.1, Neut # (Auto) 6.3, Lymph # (Auto) 0.7 L, Tillman # (Auto) 1.3 H, Eos # (Auto) [...] doctor or pharmacist, without first calling the furniture upholsterer who implanted the stent. If you require [...] weight lifting, stair steppers, etc. until the furniture upholsterer approves these activities. Check with the furniture upholsterer on your first follow-up visit. CALL YOUR PHYSICIAN at [phone]: -If bleeding should occur from the catheter insertion site- apply pressure to the site then immediately call us. -Report any fever, redness, drainage, increased swelling, or firmness at the catheter insertion site. Some bruising or slight swelling may be present at thetime of discharge. -Should arm or leg become cold, numb, white, or blue, contact the furniture upholsterer immediately. -IF you should experience episodes of [...] is recommended. Please call Central Scheduling at [phone] to schedule your appointment.] The attending furniture upholsterer or [facility] nurse clinician should provide you with specific instructions regarding activity, diet, medications, and further follow up for you. Follow the medication instructions provided on your discharge. If the dosages and instructions on this sheet differ from the dosage and instructions on the bottle, follow the instructions on the bottle. [facility] is not responsible for incorrect [...] Days Qty: 30 0RF Follow Up: [facility] [Outside] - 08/16/23 2:00 pm Documented By: Federico Davis DO 07/16/23 1602 Signed By: <Electronically signed by Federico Davis DO> 07/16/23 1609 [facility] Work Phone: 1([phone]) 759-127001-05-2024 Procedure noteUniversity Hospitals [facility] Center11-14-2023 History of Present illness Narrative* Govind Davis DO - 05/25/2023 1:00 PM EST Subjective Manolo Roche is a 88 y.o. male Chief Complaint Hospital Follow-up Seen in cardiology consultation at the request of Dr. Anat Perez for further evaluation and management in regards to coronary artery disease, recent non-ST elevation NV with moderately reduced left ventricular dysfunction and [...] Future 3. NSTEMI (non-ST elevated myocardial infarction) ([facility]/HCC) - Follow Up In Cardiology; Future 4. Essential hypertension 5. Diabetes mellitus type II, non insulin dependent ([facility]) 6. Closed fracture of right hip, initial encounter ([facility]) documented [facility] Work Phone: 1(832) 768-881211-14-2023 Instructions* Patient Instructions* Lori Pelayo LPN - [...] time of your visit. documented in this encounterT[facility] Work Phone: 1(647) 420-783111-10-2023 Evaluation note* Encounter Date Diagnosis Assessment Notes Treatment Notes Treatment Clinical Notes May, Closed displaced int ertrochanteric fracture of right femur, initial encounter (ICD-10 - S72.141A) Radiographs of right hip was reviewed with the patient today, along with a physical examination. Patient should continue with PT. Continue use of pain medication to control pain. [employer] Other 10-27-2023 Progress note Author Fredi Medrano [facility] May 07, 2023 12:48pmNote Date/TimeOctober 2022 12:36pm[place] [address] Physiatry(Rehab) Progress Note Signed Patient: Manolo Roche MR#: [id number] : 1935 Acct:[id number] Age/Sex: 88 / M Adm Date: 3 Loc: Room: [address] [place] [address] Type: ADM IN Attending Dr: Fredi Medrano [...] hypoglycemic in 40s. Patient was brought to [facility] ER where imaging demonstrated mildly displaced [...] does not believe he has had an NV and is planning on performing an intervention [...] mg 05/03/23 16:59 Bisacodyl 10 Mg Supp.Rect MN 05/02/24 16:58 DAILY PRN Constipation Calcium Carbonate [...] 16:59 Docusate Enema 283 Mg/5 Ml Enema MN 05/02/24 16:58 DAILY PRN Constipation Enoxaparin Sodium [...] Insuln.Pen SUBCUT 05/02/24 16:59 6 units TID.WITH.MEALS [facility] Administration Protocol Insulin Aspart 0 units 05/03/23 18:00 05/07/23 12:13 Insulin Aspart 300 Units/3 Ml Insuln.Pen SUBCUT 05/02/24 17:59 2 units ACHS [facility] Administration Protocol Insulin Glargine 7 units 05/03/23 [...] Code(s): I25.10 - Atherosclerotic heart disease of point lay ira coronary artery without angina pectoris Status: Acute [...] Code(s): I25.10 - Atherosclerotic heart disease of point lay ir[place] coronary artery without angina pectoris Status: Acute (9) Postoperative pain, acute, hip: Code(s): G89.18 - Other acute postprocedural pain; M25.559 - Pain in unspecified hip Status: Acute Plan 88-year-old male presenting to acute inpatient rehabilitation unit with functional impairments secondary to right hip fracture s/p repair. Hospital course complicated by non-NV troponin elevation. Hewas found to have two-vessel [...] equipment to enhance the patient's a functional samaritan Ensure adequate nutrition and hydration Sleep no issues Pain: Continue current regimen. Discharge planning Home with in 7 to 10 days. I spent greater than 15 minutes for services, including svzv-ng-amea encounter with the patient, discussion of the case, plan of care, and exam; and nxtvxbp-oi-ejoi activities, such as reviewing pertinent production support consultant documentation, recent therapy notes, laboratory and radiology studies, and discussion of case with care team including physician, nursing, counter caser, and therapists. More than 50 % of time was spent on patient/family counseling or coordination ofcare. Plan: I completed a substantive portion of this encounter, the medical decision makingportion of this note in its entirety, including Allied health note review, nursing note review, production support consultant note review,discussion with nursing and case management, and more than 50% of my time was spent on counseling and coordination of care, time spent 25 minutes Patient was personally seen by me, Dr. Medrano, on the day of encounter, reviewed the history and the relevant portions of the chart, including current orders, allied health and production support consultant notes, labs/imaging and performed smyth elements of exam and I formulated the plan of care and facilitated the medical decision making. Documented By: Fredi Medrano MD 1234 Signed By: <Electronically signed by Fredi Medrano MD> 05/07/23 1248 [facility] Work Phone: [phone] [id number] Progress note Author Fredi Medrano [facility] May 06, 2023 2:46pmNote Date/TimeOctober 2022 12:53[place] [address] Physiatry(Rehab) Progress Note Signed Patient: Manolo Roche MR#: [id number] : 1935 Acct:[id number] Age/Sex: 88 / M Adm Date: 3 Loc: Room: [address] [place] [address] Type: ADM IN Attending Dr: Fredi Medrano [...] hypoglycemic in 40s. Patient was brought to [facility] ER where imaging demonstrated mildly displaced [...] does not believe he has had an NV and is planning on performing an intervention [...] Tablet PO 05/03/24 08:59 500 mg DAILY TAVAI Administration Aspirin 81 mg 05/04/23 09:00 05/06/23 08:00 Aspirin 81 Mg Tablet. PO 05/03/24 08:59 81 mg DAILY TAVIA Administration Atorvastatin Calcium 80 mg 05/03/23 21:00 05/05/23 20:23 Atorvastatin 80 Mg Tablet PO 05/02/24 20:59 80 mg QPM TAVIA Administration Bisacodyl 10 mg 05/03/23 16:59 Bisacodyl 10 Mg Supp.Rect MN 05/02/24 16:58 DAILY PRN Constipation Calcium Carbonate [...] 16:59 Docusate Enema 283 Mg/5 Ml Enema MN 05/02/24 16:58 DAILY PRN Constipation Enoxaparin Sodium [...] Insuln.Pen SUBCUT 05/02/24 16:59 7 units TID.WITH.MEALS [facility] Administration Protocol Insulin Aspart 0 units 05/03/23 18:00 05/06/23 06:38 Insulin Aspart 300 Units/3 Ml Insuln.Pen SUBCUT 05/02/24 17:59 Not Given ACHS [facility] Protocol Insulin Glargine 7 units 05/03/23 21:00 [...] DAILY TAVIA Administration Assessment/Plan <Teena Victoria, LOG MARKER - Last Filed: 05/06/23 13:14> Assessment/Plan (1) Closed intertrochanteric fracture of right hip: Code(s): S72.141A - Displaced intertrochanteric fracture of right femur, initial encounter for closed fracture Status: Acute (2) CAD (coronary artery disease): Code(s): I25.10 - Atherosclerotic heart disease of [place] coronary artery without angina pectoris Status: Acute [...] Code(s): I25.10 - Atherosclerotic heart disease of [place] coronary artery without angina pectoris Status: Acute (9) Postoperative pain, acute, hip: Code(s): G89.18 - Other acute postprocedural pain; M25.559 - Pain in unspecified hip Status: Acute Plan 88-year-old male presenting to acute inpatient rehabilitation unit with functional impairments secondary to right hip fracture s/p repair. Hospital course complicated by non-NV troponin elevation. Hewas found to have two-vessel [...] equipment to enhance the patient's a functional samaritan Ensure adequate nutrition and hydration Sleep no issues Pain: Continue current regimen. Discharge planning Home with in 7 to 10 days. I spent greater than 15 minutes for services, including ddbf-rn-gyqq encounter with the patient, discussion of the case, plan of care, and exam; and yncviww-vf-mngw activities, such as reviewing pertinent production support consultant documentation, recent therapy notes, laboratory and radiology studies, and discussion of case with care team including physician, nursing, counter caser, and therapists. More than 50 % [...] the chart, including currentorders, allied health and production support consultant notes, labs/imaging and plan of care as above. Documented By: Teena Victoria APRN 05/06/23 1 250 Signed By: <Electronically signed by AMADA Victoria> 05/06/23 1314 <Electronically signed by Fredi Medrano MD> 05/06/23 1446 [facility] Work Phone: 1(421) 975-825210-26-2023 Consult note Author Vidya Robert [facility] May 06, 2023 1:15pmNote Date/TimeOct2022 3:49[place] [address] Hospitalist Consult Note Signed Patient: Manolo Roche MR#: [id number] : 1935 Acct:[id number] Age/Sex: 88 / M Adm Date: 3 Loc: Room: 5K3852-5 Type: ADM IN Attending Dr: Fredi Medrano [...] negative unless noted below or in HPI [facility] Medical History (Updated 05/04/23 @ 16:15 by [...] Allergies Allergy (Verified 04/28/23 12:20) Home Medications kfjeks-guaagfcu-pwcqwso 24,000-76,000-120,000 unit capsule,delayed rel (Creon) 2cap PO [...] mg 05/03/23 16:59 Bisacodyl 10 Mg Supp.Rect MN 05/02/24 16:58 DAILY PRN Constipation Calcium Carbonate [...] 16:59 Docusate Enema 283 Mg/5 Ml Enema MN 05/02/24 16:58 DAILY PRN Constipation Enoxaparin Sodium [...] % (Auto) 64.9, Lymph % (Auto) 23.0, Tillman % (Auto) 9.9, Eos % (Auto) 1.5, Baso % (Auto) 0.7, Nucleat RBC Rel Count 0.2, Neut # (Auto) 4.6, Lymph # (Auto) 1.6, Tillman # (Auto) 0.7, Eos # (Auto) 0.1, [...] Documented By: Nidia Wright APRN 04/12 11/01 3456 Signed By: <Electronically signed by AMADA Wright> 05/05/23 6707 <Electronically signed by Vidya Robert MD> 05/06/23 131 [facility] Work Phone: 1([phone] 136-598810-25-2023 Progress note Author Fredi Medrano [facility] May 05, 2023 1:10pmNote Date/TimeOctober 2022 1:11[place] [address] Physiatry(Rehab) Progress Note Signed Patient: Manolo Roche MR#: [id number] : 1935 Acct:[id number] Age/Sex: 88 / M Adm Date: 3 Loc: Room: [address] [place] [address] Type: ADM IN Attending Dr: Fredi Medrano [...] hypoglycemic in 40s. Patient was brought to [facility] ER where imaging demonstrated mildly displaced [...] does not believe he has had an NV and is planning on performing an intervention [...] mg 05/03/23 16:59 Bisacodyl 10 Mg Supp.Rect MN 05/02/24 16:58 DAILY PRN Constipation Calcium Carbonate [...] 16:59 Docusate Enema 283 Mg/5 Ml Enema MN 05/02/24 16:58 DAILY PRN Constipation Enoxaparin Sodium [...] Code(s): I25.10 - Atherosclerotic heart disease of [place] coronary artery without angina pectoris Status: Acute [...] Code(s): I25.10 - Atherosclerotic heart disease of [place] coronary artery without angina pectoris Status: Acute (9) Postoperative pain, acute, hip: Code(s): G89.18 - Other acute postprocedural pain; M25.559 - Pain in unspecified hip Status: Acute Plan 88-year-old male presenting to acute inpatient rehabilitation unit with functional impairments secondary to right hip fracture s/p repair. Hospital course complicated by non-NV troponin elevation. Hewas found to have two-vessel [...] equipment to enhance the patient's a functional samaritan Ensure adequate nutrition and hydration Sleep no issues Pain: Continue current regimen. Discharge planning Home with in 7 to 10 days. Plan: I completed a substantive portion of this encounter, the medical decision makingportion of this note in its entirety, including Allied health note review, nursing note review, production support consultant note review,discussion with nursing and case management, and more than 50% of my time was spent on counseling and coordination of care, time spent 25 minutes Patient was personally seen by me, Dr. Medrano, on the day of encounter, reviewed the history and the relevant portions of the chart, including current orders, allied health and production support consultant notes, labs/imaging and performed smyth elements of exam and I formulated the plan of care and facilitated the medical decision making. Documented By: Fredi Medrano MD 1308 Signed By: <Electronically signed by Fredi Medrano MD> 05/05/23 1310 [facility] Work Phone: 1([phone]) 980-871310-25-2023 History and physical note Author Fredi Medrano [facility] May 05, 2023 10:01amNote Date/TimeOct2022 11:35[place] [address] Physiatry (Rehab) H&P Signed Patient: Manolo Roche MR#: [id number] : 1935 Acct:[id number] Age/Sex: 88 / M Adm Date: 3 Loc: Room: [address] [place] [address] Type: ADM IN Attending Dr: Fredi Medrano [...] hypoglycemic in 40s. Patient was brought to [facility] ER where imaging demonstrated mildly displaced [...] does not believe he has had an NV and is planning on performing an intervention [...] two-story home. Does not use assistive devices. [facility] Medical History Anxiety and depression BPH (benign [...] 12:20) Home and Active Meds: Home Medications lvktpk-jazfpqjp-punrmfm 24,000-76,000-120,000 unit capsule,delayed rel (Creon) 2cap PO [...] Bisacodyl (Bisacodyl 10 Mg Supp.Rect) 10 mg MN DAILY PRN PRN Reason: Constipation Stop: 05/02/24 [...] Enema 283 Mg/5 Ml Enema) 283 mg MN DAILY PRN PRN Reason: Constipation Stop: 05/02/24 16:58 Enoxaparin Sodium (Enoxaparin 40 Mg/0.4 Ml Syringe) 40 mg SUBCUT DAILY@1000 [facility] Stop: 05/03/24 09:59 Insulin Aspart (Insulin Aspart 300 Units/3 Ml Insuln.Pen) 0 units SUBCUT TID.WITH.MEALS [facility]; Protocol Stop: 05/02/24 16:59 Last Admin: 05/04/23 08:27 Dose: 7 units Insulin Aspart (Insulin Aspart 300 Units/3 Ml Insuln.Pen) 0 units SUBCUT ACHS [facility]; Protocol Stop: 05/02/24 17:59 Last Admin: 05/04/23 08:27 Dose: 1 units Insulin Glargine (Insulin Glargine 300 Units/3 Ml Insuln.Pen) 7 units SUBCUT BID [facility] Stop: 05/02/24 20:59 Last Admin: 05/04/23 08:16 [...] 30 Mg Tablet) 30 mg PO DAILY [facility] Stop: 05/03/24 08:59 Last Admin: 05/04/23 08:10 Dose: 30 mg Sennosides (Sennosides 8.6 Mg Tablet) 2 tab PO DAILY@12 PRN PRN Reason: If no BM in 2 days Stop: 05/03/24 11:59 Sodium Chloride (Sodium Chloride 0.9 % 10 Ml Syringe) 0 ml IV-PUSH PRN PRN PRN Reason: Flush Stop: 05/02/24 16:58 Tamsulosin HCl (Tamsulosin 0.4 Mg Cap.Er.24h) 0.4 mg PO DAILY [facility] Stop: 05/03/24 08:59 Last Admin: 05/04/23 08:10 Dose: 0.4 mg Triamcinolone Acetonide (Triamcinolone 0.1% Cream 15 Gm Tube) 1 applic TOPICAL QID PRN PRN Reason: Irritation Stop: 05/02/24 17:10 Valsartan (Valsartan 80 Mg Tablet) 80 mg PO DAILY [facility] Stop: 05/03/24 08:59 Last Admin: 05/04/23 08:10 [...] % (Auto) 64.9 Lymph % (Auto) 23.0 Tillman % (Auto) 9.9 Eos % (Auto) 1.5 Baso % (Auto) 0.7 Nucleat RBC Rel Count 0.2 Neut # (Auto) 4.6 Lymph # (Auto) 1.6 Tillman # (Auto) 0.7 Eos # (Auto) 0.1 [...] MPV Neut % (Auto) Lymph % (Auto) Tillman % (Auto) Eos % (Auto) Baso % (Auto) Nucleat RBC Rel Count Neut # (Auto) Lymph # (Auto) Tillman # (Auto) Eos # (Auto) Baso # [...] 24 hour daily monitoring and intervention from Surgical Scheduler as well as other consulting physicians including internal medicine as well as 24 hour daily audio/video engineer nursing - for medical safe / optimal [...] Code(s): I25.10 - Atherosclerotic heart disease of [place] coronary artery without angina pectoris Status: Acute [...] Code(s): I25.10 - Atherosclerotic heart disease of [place] coronary artery without angina pectoris Status: Acute (9) Postoperative pain, acute, hip: Code(s): G89.18 - Other acute postprocedural pain; M25.559 - Pain in unspecified hip Status: Acute Plan 88-year-old male presenting to acute inpatient rehabilitation unit with functional impairments secondary to right hip fracture s/p repair. Hospital course complicated by non-NV troponin elevation. Hewas found to have two-vessel [...] equipment to enhance the patient's a functional samaritan Ensure adequate nutrition and hydration Sleep no issues Pain: Continue current regimen. Discharge planning Home with in 7 to 10 days. I spent greater than 45 minutes for services, including rgqr-ym-lahq encounter with the patient, discussion of the case, plan of care, and exam; and gliudki-dr-suni activities, such as reviewing pertinent production support consultant documentation, recent therapy notes, laboratory and radiology studies, and discussion of case with care team including physician, nursing, counter caser, and therapists. More than 50 % of time was spent on patient/family counseling or coordination ofcare. Plan: I completed a substantive portion of this encounter, the medical decision makingportion of this note in its entirety, including Allied health note review, nursing note review, production support consultant note review,discussion with nursing and case management, and more than 50% of my time was spent on counseling and coordination of care, time spent 70 minutes Patient was personally seen by me, Dr. Medrano, on the day of encounter, within 24 hours of rehab admission, reviewed the history and the relevant portions of the chart, including current orders, allied health and production support consultant notes, labs/imaging and performed smyth elements of exam and I formulatedthe planof care and facilitated the medical decision making. Documented By: Teena Victoria APRN 05/04/23 1 122 Signed By: <Electronically signed by AMADA Victoria> 05/04/23 1209 <Electronically signed by Fredi Medrano MD> 05/05/23 1001 [facility] Work Phone: 1(840) 144-313110-23-2023 Progress note Author Ashwini Conrad [facility] May 03, 2023 12:02pmNote Date/TimeOct2022 11:[address] [address] Orthopedic Progress Note Signed Patient: Manolo Roche MR#: [id number] : 1935 Acct:[id number] Age/Sex: 88 / M Adm Date: 3 Loc: 4N Room: [address] [place] [address] Type: ADM IN Attending Dr: Humberto Diaz [...] Code(s): I25.10 - Atherosclerotic heart disease of [place] coronary artery without angina pectoris Status: Acute [...] signed by Ashwini Conrad MD> 05/03/23 1202 [facility] Work Phone: 1([phone]) 452-756210-22-2023 Progress note Author Sushant Cordon [facility] May 02, 2023 2:35pmNote Date/TimeOct2022 2:35[place] [address] Hospitalist Progress Note Signed Patient: Manolo Roche MR#: [id number] : 1935 Acct:[id number] Age/Sex: 88 / M Adm Date: 3 Loc: N Room: [address] [place] [address] Type: ADM IN Attending Dr: Sushant Cordon [...] mg 04/28/23 17:19 Bisacodyl 10 Mg Supp.Rect MN 04/27/24 17:18 DAILY PRN Constipation Calcium Carbonate [...] Units/3 Ml Insuln.Pen SUBCUT 05/01/24 16:59 TID.WITH.MEALS [facility] Protocol Insulin Glargine 7 units 05/01/23 21:00 [...] additional questions. Documented By: Sushant Cordon DO 8971 Signed By: <Electronically signed by Sushant Cordon DO> 05/02/23 1435 [facility] Work Phone: 1([phone]) 630-265810-22-2023 Progress note Author Ashwini Conrad [facility] May 02, 2023 2:12pmNote Date/TimeOctober 2022 2:12pm[place] [address] Orthopedic Progress Note Signed Patient: Manolo Roche MR#: [id number] : 1935 Acct:[id number] Age/Sex: 88 / M Adm Date: 3 Loc: 4N Room: [address] [place] [address] Type: ADM IN Attending Dr: Sushant Cordon [...] MPV Neut % (Auto) Lymph % (Auto) Tillman % (Auto) Eos % (Auto) Baso % (Auto) Nucleat RBC Rel Count Neut # (Auto) Lymph # (Auto) Tillman # (Auto) Eos # (Auto) Baso # [...] % (Auto) 71.9 Lymph % (Auto) 13.7 Tillman % (Auto) 13.5 Eos % (Auto) 0.8 Baso % (Auto) 0.1 Nucleat RBC Rel Count 0.0 Neut # (Auto) 6.2 Lymph # (Auto) 1.2 Tillman # (Auto) 1.2 H Eos # (Auto) [...] MPV Neut % (Auto) Lymph % (Auto) Tillman % (Auto) Eos % (Auto) Baso % (Auto) Nucleat RBC Rel Count Neut # (Auto) Lymph # (Auto) Tillman # (Auto) Eos # (Auto) Baso # (Auto) PHA Creatinine Clear Sodium Potassium Chloride Carbon Dioxide Anion Gap BUN Creatinine Est GFR (CKD-EPI) Glucose POC Glucose 376 POC Glucose Comment Calcium Triglycerides Cholesterol LDL Cholesterol, Calc VLDL Cholesterol HDL Cholesterol Cholesterol/HDL Ratio Assessment / Plan Assessment and plan (1) Two-vessel coronary artery disease: Code(s): I25.10 - Atherosclerotic heart disease of [place] coronary artery without angina pectoris Status: Acute [...] signed by Ashwini Conrad MD> 05/02/23 1412 [facility] Work Phone: [phone] 465-131510-22-2023 Progress note Author Harsh Martines [facility] May 02, 2023 10:49amNote Date/TimeOct2022 10:[place] [id number] Cardiology Progress Note Signed Patient: Manolo Roche MR#: [id number] : 1935 Acct:[id number] Age/Sex: 88 / M Adm Date: 3 Loc: 4N Room: 9N5317-6 Type: ADM IN Attending Dr: Sushant Cordon [...] is to be determined by her primary furniture upholsterer and Dr. Davis Exam Physical Exam Vital [...] MPV Neut % (Auto) Lymph % (Auto) Tillman % (Auto) Eos % (Auto) Baso % (Auto) Nucleat RBC Rel Count Neut # (Auto) Lymph # (Auto) Tillman # (Auto) Eos # (Auto) Baso # [...] % (Auto) 71.9 Lymph % (Auto) 13.7 Tillman % (Auto) 13.5 Eos % (Auto) 0.8 Baso % (Auto) 0.1 Nucleat RBC Rel Count 0.0 Neut # (Auto) 6.2 Lymph # (Auto) 1.2 Tillman # (Auto) 1.2 H Eos # (Auto) [...] MPV Neut % (Auto) Lymph % (Auto) Tillman % (Auto) Eos % (Auto) Baso % (Auto) Nucleat RBC Rel Count Neut # (Auto) Lymph # (Auto) Tillman # (Auto) Eos # (Auto) Baso # [...] Code(s): I25.10 - Atherosclerotic heart disease of [place] coronary artery without angina pectoris Status: Acute [...] intervention Documented By: Harsh Martines MD, [facility] 3 1047 Signed By: <Electronically signed by MD JOAO Martines> 05/02/23 1049 [facility] Work Phone: 1([phone]) 344-609210-21-2023 Progress note Author Sushant Cordon [facility] May 01, 2023 3:13pmNote Date/TimeOct2022 3:09pm[place] [address] Hospitalist Progress Note Signed Patient: Manolo Roche MR#: [id number] : 1935 Acct:[id number] Age/Sex: 88 / M Adm Date: 3 Loc: 4N Room: [address] [place] [address] Type: ADM IN Attending Dr: Sushant Cordon [...] mg 04/28/23 17:19 Bisacodyl 10 Mg Supp.Rect MN 04/27/24 17:18 DAILY PRN Constipation Calcium Carbonate [...] Insuln.Pen SUBCUT 04/27/24 21:59 Not Given TID.WM.HS [facility] Protocol Insulin Glargine 7 units 05/01/23 21:00 [...] signed by Sushant Cordon DO> 05/01/23 1513 [facility] Work Phone: 1(925) 432-174210-21-2023 Progress note Author Harsh Martines [facility] May 01, 2023 12:24pmNote Date/TimeOct2022 12:21pm[place] [address] Cardiology Progress Note Signed Patient: Manolo Roche MR#: [id number] : 1935 Acct:[id number] Age/Sex: 88 / M Adm Date: 3 Loc: 4N Room: 7Z8453-9 Type: ADM IN Attending Dr: Sushant Cordon [...] MPV Neut % (Auto) Lymph % (Auto) Tillman % (Auto) Eos % (Auto) Baso % (Auto) Nucleat RBC Rel Count Neut # (Auto) Lymph # (Auto) Tillman # (Auto) Eos # (Auto) Baso # [...] MPV Neut % (Auto) Lymph % (Auto) Tillman % (Auto) Eos % (Auto) Baso % (Auto) Nucleat RBC Rel Count Neut # (Auto) Lymph # (Auto) Tillman # (Auto) Eos # (Auto) Baso # [...] MPV Neut % (Auto) Lymph % (Auto) Tillman % (Auto) Eos % (Auto) Baso % (Auto) Nucleat RBC Rel Count Neut # (Auto) Lymph # (Auto) Tillman # (Auto) Eos # (Auto) Baso # [...] MPV Neut % (Auto) Lymph % (Auto) Tillman % (Auto) Eos % (Auto) Baso % (Auto) Nucleat RBC Rel Count Neut # (Auto) Lymph # (Auto) Tillman # (Auto) Eos # (Auto) Baso # [...] % (Auto) 68.2 Lymph % (Auto) 16.8 Tillman % (Auto) 14.1 Eos % (Auto) 0.6 Baso % (Auto) 0.3 Nucleat RBC Rel Count 0.1 Neut # (Auto) 6.0 Lymph # (Auto) 1.5 Tillman # (Auto) 1.2 H Eos # (Auto) [...] MPV Neut % (Auto) Lymph % (Auto) Tillman % (Auto) Eos % (Auto) Baso % (Auto) Nucleat RBC Rel Count Neut # (Auto) Lymph # (Auto) [place]man # (Auto) Eos # (Auto) Baso # [...] Code(s): I25.10 - Atherosclerotic heart disease of [place] coronary artery without angina pectoris Status: Acute [...] intervention Documented By: Harsh Martines MD, [facility] 3 1220 Signed By: <Electronically signed by MD JOAO Martines> 05/01/23 1224 [facility] Work Phone: 1(215) 447-620210-21-2023 Progress note Author Ashwini Conrad [facility] May 01, 2023 11:31amNote Date/TimeOctober 2022 11:31[place] [address] Orthopedic Progress Note Signed Patient: Manolo Roche MR#: [id number] : 1935 Acct:[id number] Age/Sex: 88 / M Adm Date: 3 Loc: 4N Room: [address] [place] [address] Type: ADM IN Attending Dr: Sushant Cordon [...] % (Auto) 79.2 Lymph % (Auto) 5.9 Tillman % (Auto) 14.6 Eos % (Auto) 0.0 Baso % (Auto) 0.3 Nucleat RBC Rel Count 0.1 Neut # (Auto) 7.4 Lymph # (Auto) 0.6 L Tillman # (Auto) 1.4 H Eos # (Auto) [...] MPV Neut % (Auto) Lymph % (Auto) Tillman % (Auto) Eos % (Auto) Baso % (Auto) Nucleat RBC Rel Count Neut # (Auto) Lymph # (Auto) Tillman # (Auto) Eos # (Auto) Baso # [...] MPV Neut % (Auto) Lymph % (Auto) Tillman % (Auto) Eos % (Auto) Baso % (Auto) Nucleat RBC Rel Count Neut # (Auto) Lymph # (Auto) Tillman # (Auto) Eos # (Auto) Baso # [...] MPV Neut % (Auto) Lymph % (Auto) Tillman % (Auto) Eos % (Auto) Baso % (Auto) Nucleat RBC Rel Count Neut # (Auto) Lymph # (Auto) Tillman # (Auto) Eos # (Auto) Baso # [...] MPV Neut % (Auto) Lymph % (Auto) Tillman % (Auto) Eos % (Auto) Baso % (Auto) Nucleat RBC Rel Count Neut # (Auto) Lymph # (Auto) Tillman # (Auto) Eos # (Auto) Baso # [...] % (Auto) 68.2 Lymph % (Auto) 16.8 Tillman % (Auto) 14.1 Eos % (Auto) 0.6 Baso % (Auto) 0.3 Nucleat RBC Rel Count 0.1 Neut # (Auto) 6.0 Lymph # (Auto) 1.5 Tillman # (Auto) 1.2 H Eos # (Auto) [...] MPV Neut % (Auto) Lymph % (Auto) Tillman % (Auto) Eos % (Auto) Baso % (Auto) Nucleat RBC Rel Count Neut # (Auto) Lymph # (Auto) Tillman # (Auto) Eos # (Auto) Baso # [...] Code(s): I25.10 - Atherosclerotic heart disease of [place] coronary artery without angina pectoris Status: Acute [...] signed by Ashwini Conrad MD> 05/01/23 1131 [facility] Work Phone: 1(335) 542-584410-20-2023 Progress note Author Sushant Cordon [facility] April 30, 2023 9:13pmNote Date/TimeOct2022 9:13[place] [address] Hospitalist Progress Note Signed Patient: Manolo Roche MR#: [id number] : 1935 Acct:[id number] Age/Sex: 88 / M Adm Date: 3 Loc: 4N Room: 1A0940-9 Type: ADM IN Attending Dr: Sushant Cordon [...] mg 04/28/23 17:19 Bisacodyl 10 Mg Supp.Rect MN 04/27/24 17:18 DAILY PRN Constipation Calcium Carbonate [...] Mg/0.4 Ml Syringe SUBCUT 04/30/24 09:59 DAILY@1000 [facility] Glucose 0 gm 04/28/23 17:14 04/30/23 08:42 [...] Lactated Ringers IV 04/29/24 16:44 Not Given .S43O50C [facility] Cefazolin Sodium 1 gm in 50 mls [...] <Electronically signed by Sushant Cordon DO> 04/30/232112 [facility] Work Phone: 1([phone]) 774-603110-20-2023 Hospital Discharge instructions Additional Instructions Rehab to [...] high armed straight-backed chair. 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 -Continue to use walker or [...] OTHER -Any problems- Call the office at [phone] or return to Emergency Room. -If you are having excessive or persistent pain, swelling, fever (oral temp >101), yellow-green foul smelling drainage or bleeding from incision, excessive redness of incision, nausea, vomiting, or any other problems, you should first call your surgeon at [phone] for advice. If you are unable to contact your surgeon, seek help from a hospital emergency room. FOLLOW UP -Call my office the first business day after discharge and ask for assistance with post-discharge plans, and appointments.[facility] Work Phone: 1(977) 725-715010-20-2023 Progress note Author Anat Perez [facility] April 30, 2023 10:32amNote Date/TimeOct2022 10:32am[address] [address] Cardiology Progress Note Signed Patient: Manolo Roche MR#: [id number] : 1935 Acct:[id number] Age/Sex: 88 / M Adm Date: 3 Loc: 4N Room: 9K5293-4 Type: ADM IN Attending Dr: Sushant Cordon [...] events overnight. Denies chest pain or dyspnea. [facility] scheduledfor this AM (findings as [...] MPV Neut % (Auto) Lymph % (Auto) Tillman % (Auto) Eos % (Auto) Baso % (Auto) Nucleat RBC Rel Count Neut # (Auto) Lymph # (Auto) Tillman # (Auto) Eos # (Auto) Baso # [...] MPV Neut % (Auto) Lymph % (Auto) [place]man % (Auto) Eos % (Auto) Baso % (Auto) Nucleat RBC Rel Count Neut # (Auto) Lymph # (Auto) Tillman # (Auto) Eos # (Auto) Baso # [...] % (Auto) 60.6 Lymph % (Auto) 22.0 Tillman % (Auto) 16.4 Eos % (Auto) 0.6 Baso % (Auto) 0.4 Nucleat RBC Rel Count 0.1 Neut # (Auto) 5.4 Lymph # (Auto) 2.0 Tillman # (Auto) 1.5 H Eos # (Auto) [...] MPV Neut % (Auto) Lymph % (Auto) Tillman % (Auto) Eos % (Auto) Baso % (Auto) Nucleat RBC Rel Count Neut # (Auto) Lymph # (Auto) Tillman # (Auto) Eos # (Auto) Baso # [...] MPV Neut % (Auto) Lymph % (Auto) [place]man % (Auto) Eos % (Auto) Baso % (Auto) Nucleat RBC Rel Count Neut # (Auto) Lymph # (Auto) Tillman # (Auto) Eos # (Auto) Baso # [...] 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 - Discussed with personal banking officer- Dr Davis regarding timing of intervention- given that pt did not have NV on presentation and was very functional prior [...] signed by Anat Perez MD> 04/30/23 1032 [facility] Work Phone: 1(178) 461-628810-20-2023 [facility] Progress note Author Sushant Cordon [facility] April 29, 2023 6:28pmNote Date/TimeOct2022 6:28pm[place] [address] Hospitalist Progress Note Signed Patient: Manolo Roche MR#: [id number] : 1935 Acct:[id number] Age/Sex: 88 / M Adm Date: 3 Loc: 4N Room: [address] [place] [address] Type: ADM IN Attending Dr: Sushant Cordon [...] mg 04/28/23 17:19 Bisacodyl 10 Mg Supp.Rect MN 04/27/24 17:18 DAILY PRN Constipation Calcium Carbonate [...] Dextrose-Lactated Ringers IV 04/27/24 17:14 125 mls/hr .[id number] TAVIA Administration Lactated Ringer's 1,000 mls @ [...] <Electronically signed by Sushant Cordon DO> 04/29/231827 [facility] Work Phone: 1(985) 752-674510-19-2023 Consult note Author Anat Perez [facility] April 29, 2023 5:34pmNote Date/TimeOct2022 5:07pm[place] [address] Cardiology Consult Note Signed Patient: Manolo Roche MR#: [id number] : 1935 Acct:[id number] Age/Sex: 88 / M Adm Date: 3 Loc: 4N Room: [address] [place] [address] Type: ADM IN Attending Dr: Sushant Cordon [...] negative unless noted below or in HPI [facility] Medical History (Updated 04/29/23 @ 17:34 by [...] 18 unit subcutHS 04/28/23 [History Confirmed 04/28/23] wbolrs-gpjedlgc-gdaoeok 24,000-76,000-120,000 unit capsule,delayed rel (Creon) 2cap PO [...] x10E3/uL Lymph # (Auto) 2.0 (1.00-4.8) x10E3/uL Tillman # (Auto) 1.1 H (0.0-0.8) x10E3/uL Eos [...] ,000 ml @ 125 mls/hr IV .Q8H [facility] Rx#:[id number] Oral 0 / 0 0 / 0 [...] disease) prior to surgery. -Will plan for [facility] tomorrow for further evaluation/risk stratification. NPO past midnight. Documented By: Anat Perez MD 04/29/231703 Signed By: <Electronically signed by Anat Perez MD> 04/29/23 173 [facility] Work Phone: 1(324) 493-442310-18-2023 Consult note Author Ashwini Conrad [facility] April 28, 2023 6:47pmNote Date/TimeOct2022 6:43pmMelvin V[place] [id number] Orthopedic Consult Note Signed Patient: Manolo Roche MR#: [id number] : 1935 Acct:[id number] Age/Sex: 88 / M Adm Date: 3 Loc: 4N Room: 4D6913-3 Type: ADM IN Attending Dr: Sushant Cordon [...] negative unless noted below or in HPI [facility] Medical History (Updated 04/28/23 @ 17:35 by [...] 18 unit subcutHS 04/28/23 [History Confirmed 04/28/23] fkjjrs-kmdfrali-rzohdhd 24,000-76,000-120,000 unit capsule,delayed rel (Creon) 2cap PO [...] Appearance Clear, Urine pH 6.5, Ur Specific [place] 1.009, Urine Protein Negative, Urine Glucose (UA) Normal, UrineKetones Negative, Urine Occult Blood Negative, Urine Nitrite Negative, Urine Bilirubin Negative, Urine Urobilinogen Normal, Ur Leukocyte Esterase Negative 04/28/23 13:20: B-Natriuretic Peptide 665.0 H 04/28/23 13:20: Troponin I High Sens 35.5 H 04/28/23 13:20: PHA Creatinine Clear 60.38, Sodium 136, Potassium 4.9, Chloride 101, Carbon Dfrgakg34.4, Anion Gap 9.5, BUN 15, Creatinine 0.71, [...] % (Auto) 75.0, Lymph % (Auto) 14.8, Tillman % (Auto) 9.3, Eos % (Auto) 0.5, Baso % (Auto) 0.4, Nucleat RBC Rel Count 0.1, Neut # (Auto)7.3, Lymph # (Auto) 1.4, Tillman # (Auto) 0.9 H, Eos # (Auto) 0.0, Baso # (Auto) 0.0, Monocyte Dist Width 18.61 H & H 04/28/23 Range/Units 13:20 Hgb 11.5 L (13.0-17.0) g/dL Hct 34.8 L (38.8-50.0) % Coagulation 04/28/23 Range/Units 13:20 INR 1.0 All other labs are normal. Imaging & Diagnostic Results Imaging/Diagnostics: XRAY ([facility] 04/28/2023) Right FEMUR/RIGHT HIP/PELVIS: AP of the [...] <Electronically signed by Ashwini Conrad MD> 04/28/231846 [facility] Work Phone: 1(252) 373-359210-18-2023 History and physical note Author Sushant Cordon [facility] April 28, 2023 5:40pmNote Date/TimeOct2022 5:40pm[place] [address] Hospitalist H&P Signed Patient: Manolo Roche MR#: [id number] : 1935 Acct:[id number] Age/Sex: 88 / M Adm Date: 3 Loc: Room: 5H1391-5 Type: ADM IN Attending Dr: Sushant Cordon [...] a total pancreatectomy performed at the [facility] in [facility] about 3 [...] had what sounds like an EGD in [place] about 15 months ago with what sounds like some gastritis. Otherwise his past medical history seems to include prostate hypertrophy. Social history: He does smoke a cigar daily after dinner. In the past he smoked0.25 of a pack per day of cigarettes. He does drink wine daily with dinner. Heis mainly retired from [employer] here in [place]. He has continued to do other jobsever since his mcfp. Family history: A sister of an unspecified cancer. Another sibling ofwhat sounds like acute leukemia. Review of Systems Review of Systems Review of systems: 10 systems are reviewed and are negative except as mentioned elsewhere in the documentation. [facility] Medical History (Updated 04/28/23 @ 17:35 by [...] 18 unit subcutHS 04/28/23 [History Confirmed 04/28/23] titmxh-afkzhmvr-bshtopm 24,000-76,000-120,000 unit capsule,delayed rel (Creon) 2cap PO [...] % (Auto) 14.8 % (.) 04/28/23 13:20 Tillman % (Auto) 9.3 % (.) 04/28/23 13:20 Eos % (Auto) 0.5 % (.) 04/28/23 13:20 Baso % (Auto) 0.4 % (.) 04/28/23 13:20 Nucleat RBC Rel Count 0.1 /100 WBC (0-0.5) 04/28/23 13:20 Neut # (Auto) 7.3 x10E3/uL (1.8-7.7) 04/28/23 13:20 Lymph # (Auto) 1.4 x10E3/uL (1.00-4.8) 04/28/23 13:20 Tillman # (Auto) 0.9 x10E3/uL (0.0-0.8) H 04/28/23 [...] pH 6.5 (5.0-9.0) 04/28/23 15:00 Ur Specific [place] 1.009 (1.001-1.030) 04/28/23 15:00 Urine Protein Negative [...] did order an echocardiogram but the 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 pylori) Barretts esophagus CAD (coronary artery disease) H pylori ulcer Helicobacter pylori (H. pylori) Hypertension [id number] Stomach ulcer [facility] Work Phone: 1(213) 389-291006-29-2022 History of Present illness Narrative* Courtney Singh - 01/07/2022 12:25 PM EDT CLINICAL PHARMACY NOTE: MEDS TO BEDS Total # of Prescriptions Filled: 3 The following medications were delivered to the patient: Sucralfate susp Amlodipine Pantoprazole Additional Documentation: Pharmacy dispensed all we had of the Sucralfate susp- will transfer the rest to the [facility] in [place], [place] $8.61 collected via [employer] * Jose Roberto Peñaloza MD - 01/06/2022 [...] 01/03/2022 3:25 PM EDT Occupational Therapy Facility/Department: [address] Occupational Therapy Initial Assessment Name: Manolo Roche : 1935 Date of Service: 01/03/2022 Chief Complaint Patient presents with Abdominal Pain ulcer Discharge Recommendations: Patient would benefit from continued therapy after discharge OT Equipment Recommendations Equipment Needed: Yes Mobility Devices: ADL Assistive Devices ADL Assistive Devices: Hollow Handle Bench Worker;Long-handled Sponge;Long-handled Shoe Horn;Sock- Aid Hard;Grab Bars -shower [...] Ambulation Assistance: Independent Transfer Assistance: Independent Active Hl7 Developer: Yes Mode of Transportation: [facility] Occupation: Retired Type of Occupation: Reports he has retired 4-5 times. Works on [employer] sometimes now debo wants. [employer]. Use to work for [employer]. Leisure & Hobbies: [employer] Additional Comments: 3-4 weeks post open heart [...] 01/03/2022 12:40 PM EDT Physical Therapy Facility/Department: [address] [place] Physical Therapy Initial Assessment Name: [...] Ambulation Assistance: Independent Transfer Assistance: Independent Active Hl7 Developer: Yes Mode of Transportation: SUV Occupation: Retired Type of Occupation: Reports he has retired 4-5 times. 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 Pt did not have any belongings transferred with him from the OR. [facility] Work Phone: chief complaint+Reason for visit Narrative* Chief Complaint bp check I25.10 E61.1,K92.2 2 weeks bp 6 weeks evaluation for ICD evaluation for ICD HFC BP WITH ORTHO CardiomyopathyReason for VisitIron deficiency Ischemic cardiomyopathy Ischemic cardiomyopathy Ischemic cardiomyopathy Acute GI bleeding Ischemic cardiomyopathy [id number] Sinus bradycardia H pylori ulcer Iron deficiency Ischemic cardiomyopathy [id number] Ischemic cardiomyopathy [facility] Work Phone: Consult note Author Tru Yap [facility] May 03, 2023 3:17pmNote Date/TimeOct2022 2:59pm[place] [address] Physiatry (Rehab) Consult Note Signed Patient: Manolo Roche MR#: [id number] : 1935 Acct:[id number] Age/Sex: 88 / M Adm Date: 3 Loc: 4N Room: 2U3109-7 Type: ADM IN Attending Dr: Humberto Diaz [...] negative unless noted below or in HPI [facility] Medical History BPH (benign prostatic hyperplasia) Diabetes [...] 18 unit subcutHS 04/28/23 [History Confirmed 04/28/23] tuyxeh-sabndgym-oxycgni 24,000-76,000-120,000 unit capsule,delayed rel (Creon) 2cap PO [...] bisacodyl 10 mg rectal suppository 10 mg MN DAILY PRN Constipation #0 ea 05/03/23 [Rx] [...] Code(s): I25.10 - Atherosclerotic heart disease of point lay ira coronary artery without angina pectoris Status: Acute [...] at least 3 times weekly encounters with forklift operator for medical management and for plan of care review / changes. Plan: I completed a substantive portion of this encounter, the medical decision making portion of this note in its entirety, including Allied health note review, nursing note review, production support consultant note review, discussion with nursing and case management, and more than 50% of my time was spent on counseling and coordination of care, time spent 65 minutes Patient was personally seen by me, Dr. Yap, on the day of encounter, reviewed the history and therelevant portions of the chart, including current orders, allied health and production support consultant notes, labs/imaging and performed smyth elements of exam and I formulated the plan of care and facilitated the medical decision making. Documented By: Tru Yap MD 05/03/23 1453 Signed By: <Electronically signed by Tru Yap MD> 05/03/23 2305 [facility] Work Phone: Consult note Author Chuck Velasco [facility] CenterNote Date/TimeJanuary 2024 4:52pm[place] [address] Cardiology Consult Note Signed Patient: Manolo Roche MR#: [id number] : 1935 Acct:[id number] Age/Sex: 89 / M Adm Date: 5 Loc: N Room: [address] [place] [address] Type: ADM INOo Attending Dr: Lisa Hidalgo [...] negative unless noted below or in HPI [facility] Medical History Type 1 diabetes mellitus CAD (coronary artery disease) Former smoker BPH (benign prostatic hyperplasia) Urinary frequency Cardiomyopathy wearing external defib Coronary artery disease involving point lay ira coronary artery of point [place] ir[place] heart withoutangina pectoris GI bleeding Dupuytren's contracture [...] days #30 tabs 05/07/23 [Rx Confirmed 07/16/24] qvflay-umoimajw-uoanpxp 24,000-76,000-120,000 unit capsule,delayed rel (Creon) 2cap PO [...] tab PO DAILY 10/26/23 [History Confirmed 07/16/24] plzgcl-hiwnhdab-wmhxptt 24,000-76,000-120,000 unit capsule,delayed rel (Creon) 1cap PO [...] # (Auto) N/A Lymph # (Auto) N/A Tillman # (Auto) N/A Eos # (Auto) N/A [...] Code(s): I25.10 - Atherosclerotic heart disease of point lay ira coronary artery without angina pectoris (4) S/P [...] H/o PUD, BPH, Anxiety, depression. Current smoker. [facility] 04/30/23 - Two-vessel coronary artery disease- 100% prox LAD occlusion; 80% D1; LCx has 50% prox stenosis with 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 Echo 04/28/23 - EF 40-45%, mild LVH, trace MR and TR. 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 ECHO in January 2024 at [facility]: EF 30-35% ECHO 03/09/2024: ECHO which showed [...] call with any questions. Follow up with [facility] Cardiology as scheduled. Documented By: Chuck Velasco MD 01/03 1637 Signed By: <Electronically signed by Chuck Velasco MD> 07/17/24 1652 [facility] Work Phone: Discharge summary Author Humberto Diaz [facility] May 03, 2023 2:54pmNote Date/TimeOct2022 2:39pm[place] [address] Discharge Summary Signed Patient: Manolo Roche MR#: [id number] : 1935 Acct:[id number] Age/Sex: 88 / M Adm Date: 3 Loc: 4N Room: 0O6914-[address]: Humberto Diaz MD Copies to: [...] 08:45 Actual Procedures p [facility] Vicente Perez MD Operation Date: 04/30/23 15:30 [...] Discharge Plan Discharge Plan Patient Disposition: Rehab [facility] Diet: Diabetic Additional Instructions: Rehab to manage: [...] high armed straight-backed chair. 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 -Continue to use walker or [...] OTHER -Any problems- Call the office at [phone] or return to Emergency Room. -If you are having excessive or persistent pain, swelling, fever (oral temp >101), yellow-green foul smelling drainage or bleeding from incision, excessive redness of incision, nausea, vomiting, or any other problems, you should first call your surgeon at [phone] for advice. If you are unable to [...] 0RF bisacodyl 10 mg Suppository 10 mg MN DAILY PRN (Reason: Constipation) Qty: 0 0RF [...] (call at discharge from Rehab to see Medical Office Secretary for future ANGIOPLASTY PROCEDURE) Marie Tejeda DO [...] <Electronically signed by Humberto Diaz MD> 05/03/23 0728 [facility] Work Phone: Discharge summaryMelvin [place] [id number] Discharge Summary Signed Patient: Manolo Roche MR#: [id number] : 1935 Acct:[id number] Age/Sex: 89 / M Adm Date: 5 Loc: 4N Room: 8T3670-[address]: Lisa Hidalgo MD Copies to: [...] 40-45%, mild LVH, trace MR and TR. 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 ECHO in January 2024 at [facility]: EF 30-35% ECHO 03/09/2024: ECHO which showed [...] call with any questions. Follow up with [facility] Cardiology as scheduled. Patient was cleared by [...] Lisa Hidalgo MD 07/18/241899 Signed By: 07/18/241901 [facility] CenterDis[facility] summary Author Lisa Hidalgo [facility] CenterNote Date/TimeJanuary 2024 7:02pm[place] [address] Discharge Summary Signed Patient: Manolo Roche MR#: [id number] : 1935 Acct:[id number] Age/Sex: 89 / M Adm Date: 5 Loc: 4N Room: 5B2328-[address]: Lisa Hidalgo MD Copies to: [...] homeas disposition. Cardiology consulted, recommended to follow: [facility] 04/30/23 - Two-vessel coronary artery disease- 100% prox LAD occlusion; 80% D1; LCx has 50% prox stenosis with 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 Echo 04/28/23 - EF 40-45%, mild LVH, trace MR and TR. 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 ECHO in January 2024 at [facility]: EF 30-35% ECHO 03/09/2024: ECHO which showed [...] call with any questions. Follow up with [facility] Cardiology as scheduled. Patient was cleared by [...] <Electronically signed by Lisa Hidalgo MD> 07/18/241901 [facility] Work Phone: Evaluation + Plan note No data available for this section [facility] Evaluation + Plan note Future Appointments Appointment Date:05/22/2025 01:00:00 PM Scheduled Provider: Location:[facility] Appointment Type:Urology CALL PAT FT Appointment Date:05/24/2025 10:00:00 AM Scheduled Provider: Location:[facility] Appointment Type:Urology FT Appointment Date:05/24/2025 11:00:00 AM Scheduled Provider: Location:[facility] Appointment Type:Urology FT [facility] Evaluation note* Diagnosis Perforated viscus- Primary [...] uncontrolled, or unspecified documented in this encounter [facility] Work Phone: evaluation note* Diagnosis Onset Date Resolution Status Abnormal EKG acuteClosed intertrochanteric fracture of right hipacuteElevated troponinacute [facility] Work Phone: Evaluation note* Diagnosis Onset Date Resolution Status Abnormal EKG acuteClosed intertrochanteric fracture of right hipacuteDiabetesacuteElevated troponinacuteImpaired mobility and activities of daily livingacuteMild left ventricular systolic dysfunction (LVSD)acuteNonsustained monomorphic ventricular tachycardiaacutePostoperative pain, acute, hipacuteTwo-vessel coronary artery diseaseacute [facility] Work Phone: Evaluation note* Diagnosis [...] malnutrition, mildacuteTwo-vessel coronary artery diseaseacuteUncontrolled diabetes mellitusacute [facility] Work Phone: Evaluation note* Diagnosis NSTEMI (non-ST elevated myocardial infarction) ([facility])- Primary Acute myocardial infarction, subendocardial infarction, episode of care unspecified Abnormal stress test Other nonspecific abnormal cardiovascular system function study ASHD (arteriosclerotic heart disease) Coronary atherosclerosis of unspecified type of vessel, point lay ira or graft Essential hypertension Unspecified essential hypertension Diabetes mellitus type II, non insulin dependent ([facility]) Type II or unspecified type diabetes mellitus without mention of complication, not stated as uncontrolled Closed fracture of right hip, initial encounter ([facility]) documented in this encounter [facility] Work Phone: Evaluation noteNo InformationNort [place] Other Evaluation note* Diagnosis Onset Date Resolution Status Diabetes acuteCAD (coronary artery disease)acuteDiabetesacute [facility] Work Phone: Evaluation note* Diagnosis Cardiomyopathy, ischemic- Primary Other specified forms of chronic ischemic heart disease ASHD (arteriosclerotic heart disease) Coronary atherosclerosis of unspecified type of vessel, point lay ira or graft BMI 20.0-20.9, adult Orthopnea documented in this encounter [facility] Work Phone: Evaluation noteNo assessment information available [facility] Work Phone: Evaluation note* Diagnosis Onset Date Resolution Status Fracture of C5 vertebra, closed acuteVertebral fracture, closedacuteBarretts esophagusacuteH pylori ulceracute [facility] Work Phone: Evaluation note* Diagnosis Onset Date Resolution Status Acute electrocardiogram changes acuteAcute GI bleedingacuteElevated troponinacuteGI bleedingacute [facility] Work Phone: Evaluation note* Diagnosis Onset Date Resolution Status Acute electrocardiogram changes acuteAcute GI bleedingacuteCAD (coronary artery disease)[id number] acuteElevated troponinacuteGI bleedingacuteHistory of pancreatectomyacute HypertensionacuteS/P PTCA (percutaneous transluminal coronary angioplasty)acute Type 1 diabetes mellitusacute [facility] Work Phone: Evaluation note* Diagnosis Onset Date Resolution Status Acute electrocardiogram changes resolvedAcute GI bleedingresolvedElevated troponinresolvedIschemic cardiomyopathyacuteAcute GI bleedingresolved [facility] Work Phone: Evaluation note* Diagnosis Onset Date Resolution Status Acute electrocardiogram changes resolvedAcute GI bleedingresolvedElevated troponinresolvedIschemic cardiomyopathyacuteAcute GI bleedingresolvedIron deficiencyacuteIschemic cardiomyopathyacute [facility] Work Phone: Evaluation note* Diagnosis Onset Date Resolution Status Acute electrocardiogram changes resolvedAcute GI bleedingresolvedElevated troponinresolvedIschemic cardiomyopathyacuteAcute GI bleedingresolvedIron deficiencyacuteIschemic cardiomyopathyacuteIschemic cardiomyopathyacuteIschemic cardiomyopathyacuteAcute GI bleedingresolved [facility] Work Phone: Evaluation note* Diagnosis 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 ([facility]/HCC) Pancreatic insufficiency ([facility]/HCC)- Primary Other specified disease of pancreas Coronary arteriosclerosis ([facility]/HCC) Coronary atherosclerosis of unspecified type of vessel, point lay ira or graft 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 ([facility]/HCC) 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 ([facility]/HCC) H pylori ulcer Chronic ulcer of unspecified site documented in this encounter [facility] HealthcareEvaluation note* Diagnosis 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 ([facility]/HCC) Bronchitis- Primary Bronchitis, not specified as acute or chronic 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 (CMS/HCC) Generalized anxiety disorder ([facility]) Generalized anxiety disorder Need for immunization against influenza Need for prophylactic vaccination and inoculation against influenza 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 H pylori ulcer Chronic ulcer of unspecified site 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 ([facility]/HCC) Insulin pump in place Insulin pump status Pancreatic insufficiency ([facility]/HCC) Other specified disease of pancreas Duodenal ulcer Medicare annual wellness visit, subsequent ACP (advance care planning) Other specified counseling Bradycardia Other specified cardiac dysrhythmias Orthostatic hypotension Acute on chronic systolic congestive heart failure ([facility]/HCC) documented in this encounter [facility] HealthcareEvaluation note* Diagnosis 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 ([facility]) ICD (implantable cardioverter-defibrillator) in place- Primary Hospital discharge follow-up Other follow-up examination 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 (CMS/HCC) Coronary atherosclerosis of unspecified type of vessel, point lay ira or graft Insulin pump in place Insulin pump status 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) Moderate pulmonary arterial systolic hypertension (CMS/HCC) Nonrheumatic mitral valve regurgitation Chronic systolic CHF (congestive heart failure), NYHA class 2 (CMS/HCC) documented in this encounter [facility] HealthcareEvaluation note* Diagnosis 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 (CMS/HCC) Abdominal wall abscess- Primary Cellulitis and abscess of trunk documented in this encounter [facility] HealthcareEvaluation note* Diagnosis 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, with long-term current use of insulin(HCC)- Primary 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) Insulin pump status [facility] Diagnosis Diabetes mellitus secondary to [...] absence of pancreas documented in this encounter [facility] HealthcareEvaluation note* Diagnosis 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 (CMS/HCC) Abdominal wall abscess- Primary Cellulitis and abscess of trunk documented in this encounter [facility] HealthcareEvaluation note* Diagnosis 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 (CMS/HCC) Chronic systolic CHF (congestive heart failure), NYHA class 2 (CMS/HCC)- Primary Pancreatic insufficiency (CMS/HCC) Other specified disease of pancreas History of bleeding peptic ulcer Coronary arteriosclerosis (CMS/HCC) Coronary atherosclerosis of unspecified type of vessel, point lay ira or graft 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) Orthostatic hypotension Bronchitis Bronchitis, not specified as acute or chronic documented in this encounter [facility] HealthcareEvaluation note* Diagnosis 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, with long-term current use of insulin(HCC)- Primary [facility] Diagnosis Diabetes mellitus secondary to [...] disease of pancreas documented in this encounter [facility]Evaluation note* Diagnosis 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, with long-term current use of insulin(HCC)- Primary [facility] Diagnosis 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, with long-term current use of insulin(HCC)- Primary 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) Insulin pump status Insulin pump titration Fitting and adjustment of insulin pump [facility] Diagnosis 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, with long-term current use of insulin(HCC) [facility] Diagnosis 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, with long-term current use of insulin(HCC)- Primary 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) Insulin pump status Insulin pump titration Fitting and adjustment of insulin pump [facility] Diagnosis 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, with long-term current use of insulin(HCC)- Primary [facility] Diagnosis 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, with long-term current use of insulin(HCC) [facility] Diagnosis 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, with long-term current use of insulin(HCC) [facility] Diagnosis 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 Type 1 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 (HCC) Pancreatic insufficiency (HCC)- Primary Other specified disease of pancreas Pleurisy Pleurisy without mention of effusion or current tuberculosis Pleurisy Pleurisy without mention of effusion or current tuberculosis documented in this encounter [facility]* Diagnosis 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, with long-term current use of insulin(HCC)- Primary [facility] Diagnosis 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, with long-term current use of insulin(HCC)- Primary [facility]* Diagnosis Onset Date Resolution Status Admit Date Ischemic cardiomyopathy acuteSept2024 9:54amType 1 diabetes mellitusacuteSept2024 9:54amAcute GI bleedingresolvedSept2024 9:54amCoronary artery disease involving point lay ira coronary artery of point lay ira heart wiinactiveSept2024 9:54amHypertensioninactiveSept2024 9:54amS/P PTCA (percutaneous transluminal coronary angioplasty)inactiveSept2024 9:54am [facility] Work Phone: Evaluation note* Diagnosis 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 Type 1 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 (HCC) Need for follow-up care after discharge- Primary Generalized anxiety disorder Pancreatic insufficiency (HCC) Other specified disease of pancreas Mixed hyperlipidemia 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) Coronary arteriosclerosis Coronary atherosclerosis of unspecified type of vessel, point lay ira or graft Current moderate episode of major 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 (HCC) Insulin pump in place Insulin pump status History of bleeding peptic ulcer 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) Benign prostatic hyperplasia with urinary frequency 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 Cardiac pacemaker in situ documented in this encounter [facility] HealthcareHistory and physical note Author Indra Guillory [facility] CenterNote Date/TimeJanuary 2024 1:[place] [address] Hospitalist H&P Signed Patient: Manolo Roche MR#: [id number] : 1935 Acct:[id number] Age/Sex: 89 / M Adm Date: 5 Loc: Room: [address] [place] [address] Type: ADM INOo Attending Dr: Indra Guillory [...] that which is noted above in HPI [facility] Medical History Type 1 diabetes mellitus CAD (coronary artery disease) Former smoker BPH (benign prostatic hyperplasia) Urinary frequency Cardiomyopathy wearing external defib Coronary artery disease involving point lay ira coronary artery of point lay ira heart withoutangina pectoris GI bleeding Dupuytren's contracture [...] days #30 tabs 05/07/23 [Rx Confirmed 07/16/24] ozaelo-ffqflitc-raprbeh 24,000-76,000-120,000 unit capsule,delayed rel (Creon) 2cap PO [...] tab PO DAILY 10/26/23 [History Confirmed 07/16/24] gqdsrv-fdrwnyll-mwuodms 24,000-76,000-120,000 unit capsule,delayed rel (Creon) 1cap PO [...] % (Auto) 18.9 % (.) 07/16/24 12:30 Tillman % (Auto) 12.8 % (.) 07/16/24 12:30 Eos % (Auto) 2.7 % (.) 07/16/24 12:30 Baso % (Auto) 0.8 % (.) 07/16/24 12:30 Nucleat RBC Rel Count 0.2 /100 WBC (0-0.5) 07/16/24 12:30 Neut # (Auto) 4.7 x10E3/uL (1.8-7.7) 07/16/24 12:30 Lymph # (Auto) 1.4 x10E3/uL (1.00-4.8) 07/16/24 12:30 Tillman # (Auto) 0.9 x10E3/uL (0.0-0.8) H 07/16/24 [...] 2 Documented By: Indra Guillory MD 5 [id number] Signed By: <Electronically signed by Indra Guillory MD> 07/17/24 0148 [facility] Work Phone: History general Narrative - Reported* Type Description Date Medical History stage 1 diabetes Surgical Historypancreas and spleen removalSurgical Historyback surgerySurgical HistorytonsilectomySurgical HistoryHIP TFN [id number] [facility] Other Hospital Discharge instructions* Instructions* Viki Donovan, - 01/07/2022 Maintain JFEF drain. Strip tubing daily. Empty jeff drain [...] scheduled appointment, please call the office at [phone]. Call Your Doctor If Any of the [...] through Care Everywhere. * Surgical Drain Care (Dominican) [facility] [employer] Work Phone: Hospital Discharge instructions Additional Instructions [...] -Dietary supplement: Glucerna 1 container twice a day.[facility] Work Phone: Hospital Discharge instructions [...] doctor or pharmacist, without first calling the furniture upholsterer who implanted the stent. If you require [...] weight lifting, stair steppers, etc. until the furniture upholsterer approves these activities. Check with the furniture upholsterer on your first follow-up visit. CALL YOUR PHYSICIAN at [phone]: -If bleeding should occur from the catheter insertion site- apply pressure to the site then immediately call us. -Report any fever, redness, drainage, increased swelling, or firmness at the catheter insertion site. Some bruising or slight swelling may be present at the time of discharge. -Should arm or leg become cold, numb, white, or blue, contact the furniture upholsterer immediately. -IF you should experience episodes of [...] is recommended. Please call Central Scheduling at [phone] to schedule your appointment.] The attending furniture upholsterer or [facility] nurse clinician should provide you with specific instructions regarding activity, diet, medications, and further follow up for you. Follow the medication instructions provided on your discharge. If the dosages and instructions on this sheet differ from the dosage and instructions on the bottle, follow the instructions on the bottle. [facility] is not responsible for incorrect prescription information provided by the patient during their visit. Do not stop your medications without consulting your health care provider. Please take the list with you to your next doctor's appointment.[facility] Work Phone: Hospital Discharge instructionsAmbulatory Orders* Referral to Cardiac Rehab Location: None Selected [facility] Work Phone: Hospital Discharge instructions No data available for this section [facility] Progress note Author Anat Perez [facility] February 08, 2024 2:07pmNote Date/TimeJuly 2023 2:04pm[address] [address] Cardiology Progress Note Signed Patient: Manolo Roche MR#: [id number] : 1935 Acct:[id number] Age/Sex: 88 / M Adm Date: 4 Loc: Room: [address] [place] [address] Type: ADM IN Attending Dr: Warren Gross [...] MPV Neut % (Auto) Lymph % (Auto) Tillman % (Auto) Eos % (Auto) Baso % (Auto) Nucleat RBC Rel Count Neut # (Auto) Lymph # (Auto) Tillman # (Auto) Eos # (Auto) Baso # [...] % (Auto) 51.7 Lymph % (Auto) 22.3 Tillman % (Auto) 17.6 Eos % (Auto) 7.1 Baso % (Auto) 1.3 Nucleat RBC Rel Count 0.2 Neut # (Auto) 3.0 Lymph # (Auto) 1.3 Tillman # (Auto) 1.0 H Eos # (Auto) [...] MPV Neut % (Auto) Lymph % (Auto) Tillman % (Auto) Eos % (Auto) Baso % (Auto) Nucleat RBC Rel Count Neut # (Auto) Lymph # (Auto) Tillman # (Auto) Eos # (Auto) Baso # (Auto) PHA Creatinine Clear Sodium Potassium Chloride Carbon Dioxide Anion Gap BUN Creatinine Est GFR (CKD-EPI) Glucose POC Glucose 382 POC Glucose Comment Calcium Magnesium A&P - Cardiology (1) Acute GI bleeding: Code(s): K92.2 - Gastrointestinal hemorrhage, unspecified (2) Elevated troponin: Code(s): R79.89 - Other specified abnormal findings of blood chemistry (3) Coronary artery disease involving point lay ira coronary artery of point lay ira heart without angina pectoris: Code(s): I25.10 - Atherosclerotic heart disease of point lay ira coronary artery without angina pectoris (4) S/P PTCA (percutaneous transluminal coronary angioplasty): Code(s): Z98.61 - Coronary angioplasty status Plan # Acute recurrent GI Bleed in setting of known PUD (recent EGD on 09/01/23 found a 2 cm ulcer with anonbleeding visible vessel at the bulb of the duodenum). # CAD s/p PCI in Jul 2023. # Ischemic Cardiomyopathy s/p LifeVest ordered in [place] - Well compensated. # Non-ACS myocardial injury - Is due to demand-supply mismatch 2/2 acute anemia. 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 Current smoker. [facility] 04/30/23 - Two-vessel coronary artery disease- 100% prox LAD occlusion; 80% D1; LCx has 50% prox stenosis with 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 Echo 04/28/24 - EF 40-45%, mild LVH, trace MR and TR. 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 EKG 09/07/23 - sinus peace 56 bpm, anterolateral TWI. EKG 09/08/23 - sinus peace 58 bpm, anterolateral and inferior TWI. - Pt is currently 6 months out from PCI. Plavix stopped. Continue ASA 81mg dailyand monitor Hb - Reviewed records from recent hospitalization at [facility] in [place]. He was hospitalized for NSTEMI and PNA. [...] PO 20mg daily. - Follow up with [facility] cardiology as scheduled on 03/02/24. Will plan on repeat ECHO 3 months after being on maximally tolerated GDMT to determine need for ICD. - Cardiology will sign off. Please call with questions. Documented By: Anat Perez MD 02/08/24 2838 Signed By: <Electronically signed by Anat Perez MD> 02/08/24 5338 [facility] Work Phone: Progress note Author Chuck Velasco [facility] CenterNote Date/TimeNovember 2023 10:41am [place] [address] Cardiology Progress Note Signed Patient: Manolo Roche MR#: [id number] : 1935 Acct:[id number] Age/Sex: 89 / M Adm Date: 4 Loc: Room: [address] [place] [address] Type: ADM IN Attending Dr: Abdulaziz Root [...] signed by Chuck Velasco MD> 05/25/24 1041 [facility] Work Phone: Progress note No data available for this section [facility] Reason for referral (narrative)* Consultation (Routine) - AuthorizedSpecialtyDiagnoses / ProceduresReferred By ContactReferred To ContactCardiology Diagnoses Abnormal stress test ASHD (arteriosclerotic heart disease) NSTEMI (non-ST elevated myocardial infarction) ([facility]) Procedures Follow Up In Cardiology Govind Davis, [address] [facility] [address] [phone] Govind Davis, DO [address] [facility] [address] [id number] Referral IDStatusReasonStart DateExpiration DateVisits RequestedVisits [id number]/14/202311/ * Cardiovascular (Routine) - Pending ReviewSpecialtyDiagnoses / Procedures Referred By ContactReferred To Contact Diagnoses Abnormal stress test ASHD (arteriosclerotic heart disease) Procedures ECG 12 Lead Govind Davis, [address] [facility] [address] [phone] Referral IDStatusReasonStindependence DateExpiration DateVisits RequestedVisits [id number] [facility] Work Phone: Regthx for referral (narrative)No reason for referral information availableW[facility] Center Work Phone: Advance Directives Code StatusDate ActivatedDate InactivatedCommentsFull Code01/02/2022 10:32 PMFull Code01/02/2022 8:11 PM01/02/2022 10:32 PMNameRelationshipHealthcare Agent RelationshipCommunicationRose Yodit SbernaSpousePrimary Decision Maker* Saúl SbernaChildSecondary Decision Maker* Advance Directive Response Recorded Date/ Time Advance Directives No March 5:30pm Advance Directive Response Recorded Date/ Time Advance Directives No March 4:30pm Date ActivatedDate PlcmrzpwymbNmttokat41/16/2024 7:43 AMDate ActivatedDate KdfksxposdfYlteaazz89/16/2024 7:43 AM Summary Purpose Family History Relationship [...] Acute GI bleeding CAD (coronary artery disease) [id number] Elevated troponin GI bleeding History of pancreatectomy Hypertension S/P PTCA (percutaneous transluminal coronary angioplasty) Type 1 diabetes mellitus Chief Complaint Dizziness Dizziness Dizziness K92.2Reason for VisitAcute electrocardiogram changes Acute GI bleeding CAD (coronary artery disease) [id number] Elevated troponin GI bleeding History of pancreatectomy Hypertension S/P PTCA (percutaneous transluminal coronary angioplasty) Type 1 diabetes mellitus Chief Complaint Dizziness Dizziness Dizziness K92.2 K92.2Reason for VisitAcute electrocardiogram changes Acute GI bleeding CAD (coronary artery disease) [id number] Elevated troponin GI bleeding History of pancreatectomy Hypertension S/P PTCA (percutaneous transluminal coronary angioplasty) Type 1 diabetes mellitus Chief Complaint Dizziness Dizziness Dizziness K92.2 K92.2 [facility] 02/06Reason for VisitAcute electrocardiogram changes Acute GI bleeding CAD (coronary artery disease) [id number] Elevated troponin GI bleeding History of pancreatectomy Hypertension S/P PTCA (percutaneous transluminal coronary angioplasty) Type 1 diabetes mellitus Chief Complaint Dizziness Dizziness Dizziness K92.2 K92.2 [facility] 02/06 k92.2 d50.9 r00.1Reason for VisitAcute electrocardiogram changes Acute GI bleeding Elevated troponin Ischemic cardiomyopathy Acute GI bleeding Chief Complaint Dizziness Dizziness Dizziness K92.2 K92.2 [facility] 02/06 r00.1 k92.2 d50.9 r00.1 bp checkReason for VisitAcute electrocardiogram changes Acute GI bleeding Elevated troponin Ischemic cardiomyopathy Acute GI bleeding Chief Complaint Dizziness Dizziness Dizziness K92.2 K92.2 [facility] 02/06 r00.1 k92.2 d50.9 r00.1 bp check E61.1,K92.2 I25.10Reason for VisitAcute electrocardiogram changes Acute GI bleeding Elevated troponin Ischemic cardiomyopathy Acute GI bleeding Iron deficiency Ischemic cardiomyopathy Chief Complaint Dizziness Dizziness Dizziness K92.2 K92.2 [facility] 02/06 r00.1 k92.2 d50.9 r00.1 bp check I25.10 E61.1,K92.2Reason for VisitAcute electrocardiogram changes Acute GI bleeding Elevated troponin Ischemic cardiomyopathy Acute GI bleeding Iron deficiency Ischemic cardiomyopathy Chief Complaint Dizziness Dizziness Dizziness K92.2 K92.2 [facility] 02/06 r00.1 k92.2 d50.9 r00.1 bp check I25.10 E61.1,K92.2 2 weeks bpReason for VisitAcute electrocardiogram changes Acute GI bleeding Elevated troponin Ischemic cardiomyopathy Acute GI bleeding Iron deficiency Ischemic cardiomyopathy Chief Complaint Dizziness Dizziness Dizziness K92.2 K92.2 [facility] 02/06 r00.1 k92.2 d50.9 r00.1 bp check I25.10 E61.1,K92.2 2 weeks bp 6 weeksReason for VisitAcute electrocardiogram changes Acute GI bleeding Elevated troponin Ischemic cardiomyopathy Acute GI bleeding Iron deficiency Ischemic cardiomyopathy Ischemic cardiomyopathy Ischemic cardiomyopathy Acute GI bleeding Chief Complaint Dizziness Dizziness Dizziness K92.2 K92.2 [facility] 02/06 r00.1 k92.2 d50.9 r00.1 bp check I25.10 E61.1,K92.2 2 weeks bp 6 weeks evaluation for ICD evaluation for ICDReason for VisitAcute electrocardiogram changes Acute GI bleeding Elevated troponin Ischemic cardiomyopathy Acute GI bleeding Iron deficiency Ischemic cardiomyopathy Ischemic cardiomyopathy Ischemic cardiomyopathy Acute GI bleeding Chief Complaint Dizziness Dizziness Dizziness K92.2 K92.2 [facility] 02/06 r00.1 k92.2 d50.9 r00.1 bp check I25.10 E61.1,K92.2 2 weeks bp 6 weeks evaluation for ICD evaluation for ICD HFCReason for VisitAcute electrocardiogram changes Acute GI bleeding Elevated troponin Ischemic cardiomyopathy Acute GI bleeding Iron deficiency Ischemic cardiomyopathy Ischemic cardiomyopathy Ischemic cardiomyopathy Acute GI bleeding Chief Complaint Dizziness Dizziness Dizziness K92.2 K92.2 [facility] 02/06 r00.1 k92.2 d50.9 r00.1 bp check I25.10 E61.1,K92.2 2 weeks bp 6 weeks evaluation for ICD evaluation for ICD HFCReason for VisitAcute electrocardiogram changes Acute GI bleeding Elevated troponin Ischemic cardiomyopathy Acute GI bleeding Iron deficiency Ischemic cardiomyopathy Ischemic cardiomyopathy Ischemic cardiomyopathy Acute GI bleeding Ischemic cardiomyopathy [id number] Sinus bradycardia H pylori ulcer Iron deficiency Ischemic cardiomyopathy [id number] Chief Complaint K92.2 K92.2 [facility] 02/06 r00.1 k92.2 d50.9 r00.1 bp check I25.10 E61.1,K92.2 2 weeks bp 6 weeks evaluation for ICD evaluation for ICD HFC BP WITH ORTHOReason for VisitIschemic cardiomyopathy Acute GI bleeding Iron deficiency Ischemic cardiomyopathy Ischemic cardiomyopathy Ischemic cardiomyopathy Acute GI bleeding Ischemic cardiomyopathy [id number] Sinus bradycardia H pylori ulcer Iron deficiency Ischemic cardiomyopathy [id number] Chief Complaint Admit Date bp check February [...] 2024 10:57am Coronary artery disease invo lving point lay ira coronary artery of point lay ira heart wi March 27, 2024 10:57am Hypertension [...] 37pm I47.2 Z95.810 August 29, 2024 1:28pm [facility] 07/17August 31, 2024 9:56am Reason for Visit [...] 2024 9:56am Coronary artery disease invo lving point lay ira coronary artery of point lay ira heart wi August 31, 2024 9:56am Hypertension August 31, 2024 9:56am S/P PTCA (percutaneous transluminal mounika nary angioplasty) August 31, 2024 9:56am Chief Complaint Admit Date chest pain July 16, 2024 6: 08pm chest pain July 17, 2024 4: 37pm I47.2 Z95.810 August 29, 2024 1:28pm [facility] 07/17August 31, 2024 9:56am 6 weeks October [...] 2024 9:56am Coronary artery disease invo lving point lay ira coronary artery of point lay ira heart wi August 31, 2024 9:56am Hypertension August 31, 2024 9:56am S/P PTCA (percutaneous transluminal mounika nary angioplasty) August 31, 2024 9:56am Ischemic cardiomyopathy October 13, 2024 9:10am Type 1 diabetes mellitus October 13, 2024 9:10am Acute GI bleeding October 13, 2024 9:10 am Coronary artery disease invo lving point lay ira coronary artery of point lay ira heart wi October 13, 2024 9:10am Hypertension [...] 9:10 am Coronary artery disease invo lving point lay ira coronary artery of point lay ira heart wi October 13, 2024 9:10am Hypertension [...] 2025 9:54am Coronary artery disease invo lving point lay ira coronary artery of point lay ira heart wi March 27, 2025 9:54am Hypertension [...] 2025 9:54am Coronary artery disease invo lving point lay ira coronary artery of point lay ira heart wi March 27, 2025 9:54am Hypertension [...] 2025 10:11am Coronary artery disease invo lving point lay ira coronary artery of point lay ira heart wi May 09, 2025 10:11am Hypertension May 09, 2025 1 0:11am S/P PTCA (percutaneous transluminal mounika nary angioplasty) May 09, 2025 10:11am Additional Source Comments Reason for Visit (unrecogniz ed section and content) ReasonCommentsAbdominal PainulcerSpecialtyDiagnoses / ProceduresReferred By ContactReferred To Contact Diagnoses Acute gastric ulcer with perforation (HCC) Perforated viscus Delon Carrion, DO [address] [facility] [address] [place] [address] [facility] [address] [place] [address] Referral IDStatusReasonStart DateExpiration DateVisits RequestedVisits [id number] [facility] 05/08/2023Specialty Diagnoses / ProceduresReferred By ContactReferred To Contact Diagnoses Abnormal stress test ASHD (arteriosclerotic heart disease) Procedures ECG 12 Lead Govind Davis, DO [address] [facility] [address] [place] [address] Referral IDStatusReasonStart DateExpiration DateVisits RequestedVisits [id number] [id number]-hjYWK SpecialtyDiagnoses / ProceduresReferred By ContactReferred To ContactCardiology Diagnoses ASHD (arteriosclerotic heart disease) Procedures Follow Up In Cardiology Sammy Berman, LOG MARKER-LOAN REVIEW OFFICER [address] [facility] [address] [place] [address] Referral IDStatusReasonStart DateExpiration DateVisits RequestedVisits [id number]/13/202312/[id number]-ldhl office visitToday patient reports he is feeling [...] Procedures OFFICE/OUTPATIENT NEW HIGH MDM 60 MINUTES [id number] (SNOMED CT) - AMB REFERRAL TO ENDOCRINOLOGY Anatoly Anne, KALANI [address] [place] [address] Madelyn Reese MD, PhD [address] [place] [address] Referral IDStatusReasonStart DateExpiration DateVisits RequestedVisits [id number] [id number]-dmaee office visitHospital Follow-xaBmfulbXrdbifgf0jq pow [employer] Lt. abd. wall abscess ReasonCommentsOmnipod [...] G7 issuesReasonCommentsOmnipod/Dexcom issues ReasonCommentsHigh Blood SugarReasonOnset DateCommentsRefill Wbmapat6812/19/2024 ReasonOnset DateCommentsRefill Syhxupq2612/12/2024ReasonCommentsFlank PainLeft- side for 10 days, denies change [...] Name: SALVADOR NARANJO DO Address: [address] [facility] [place] [address] Telecom: Team Status: Active Member Role Status Dates Marie Tejeda DO Primary Care Provider Active Team Status: Inactive Member Role Status Dates Marie Tejeda DO Primary Care Provider Active Dimitri Miranda ProviderActiveKristophmichelle Robertom , DOAdmit ProviderActiveAshwini Conrad MDOther ProviderActiveChuck Velasco MD Other ProviderActiveAnat Perez MDOther ProviderActiveHumberto Diaz MD Attending ProviderActiveTru Yap MDOther ProviderActiveTeam Member RelationshipSpecialtyStart DateEnd Date Marie Tejeda [facility] [address] [place] [address] PCP - GeneralInternal Medicine01/07/22 Team Status: Active [...] MDOther ProviderActiveEarelham Angeles MDOther ProviderActiveMarga Mccauley , ETCHER APPRENTICE-COther ProviderActiveIndra Guillory MDOther ProviderActiveDavid Fonseca MD Other ProviderActiveHai Aguilera MDOther ProviderActiveAnoPino MDOther ProviderActiveMargerald Urena , DOOther ProviderActiveNeal R Lina , DOOther ProviderActiveAnthony M Miniaci , DOOther ProviderActiveLinda Obika , APRNOther ProviderActiveShradhan Khoi Gross , DOOther ProviderActiveObaydah Guille Jimenez MDOther ProviderActivePaula Aileen Berman , APRNOther ProviderActiveAlicia Arnaldo Pimentel , LOG MARKER Other ProviderActiveVidya Robert MDOther ProviderActiveDagerson Burrell MDOther ProviderActiveKyle Leeann John , DOOther ProviderActivePatricia Brody Murdock , APRNOther ProviderActiveYadontae Drake , DOOther ProviderActiveErma Morillo RNOther ProviderActiveTeam MemberRelationshipSpecialtyStart DateEnd Date Marie Tejeda DO [address] [place] [address] PCP - GeneralInternal Gmrvbxhg54/7/23 Team Status: Inactive Member Role Status Dates [...] Tejeda, [address] [place] [address] PCP - [facility] Corporationnal Xyhxagvl20/7/23 Team Status: Inactive Member Role Status Dates [...] September 27, 2023 End: September 26lewis Flores ETCHER APPRENTICE-CAttending ProviderActive Start: September 27, 2023 End: September 27, 2023 Team Status: Inactive Member Role Status Dates Marie Tejeda DO Primary Care Provider Active Start: September 28, 2023 End: September 28, 2023Rachelle Luciano ETCHER APPRENTICE-CAttending ProviderActiveStart: September 28, 2023 End: September 28, [...] Member Role Status Dates Anat Perez MD Medical Office Secretary Active CLAUDIA AgiuleraHill [facility]rest [facility] Services ProviderActive Team Status: Inactive Member Role Status [...] DO [address] [place] [address] PCP - GeneralInternal Medicine01/08/23 Marie Tejeda DO [address] [place] [address] PCP - ACO Reach09/10/23 Patrick Beard MD [address] [facility] [address] [place] [address] Referring KjjrvacdkMokblqqaqjxawgtg51/7/24 Andrey Grullon MD [address] [place] [address] Referring TbsqklcymYybjlioiq84/7/24 Saúl Davis MD [address] [place] [address] [address] [place] [address] Referring SfdsfksknHekqnzjkvn96/7/24 Team Status: Active Member Role Status Dates [...] [address] [place] [address] PCP - GeneralInternal Medicine01/08/23 Marie Tejeda DO [address] [place] [address] PCP - ACO Reach09/10/23 Patrick Beard MD [address] [facility] [address] [place] [address] Referring EhsqtiuanJvuspgnuibnzcwlx50/7/24 Andrey Grullon MD [address] [place] [address] Referring ItouhuvnsJwerxnpfb07/7/24 Saúl Davis MD [address] [facility] [address] [place] [address] Referring YezzdtyoqCykagjskzy38/7/24 Team Status: Inactive Member Role Status Dates [...] DO [address] [place] [address] PCP - GeneralInternal Medicine01/08/23 Marie Tejeda DO [address] [place] [address] PCP - ACO Reach09/10/23 Patrick Beard MD 1 [facility] [address] [place] [address] Referring FspqvsqdtOgoyjkoibonrvcfl79/7/24 Andrey Grullon MD [address] [place] [address] Referring VeimqcfxgRhccwbmqq26/7/24 Saúl Davis MD [address] [place] [address] [address] [place] [address] Referring EfqbbpbueQjhiucpjag23/7/24Team MemberRelationshipSpecialtyStart Date End Date Marie Tejeda DO [address] [place] [address] PCP - GeneralInternal Medicine01/08/23 Marie Tejeda DO [address] [place] [address] PCP - ACO Reach09/10/23 Patrick Beard MD [address] [facility] [address] [place] [address] Referring OuyoovaulSkebbaohcwycljzo62/7/24 Andrey Grullon MD [address] [place] [address] Referring OzjwpbxelKdsevalks18/7/24 Saúl Davis MD [address] [facility] [address] [place] [address] Referring KvqjxedqeLepzknzvha13/7/24Team MemberRelationshipSpecialtyStart Date End Date Marie Tejeda DO [address] [place] [address] PCP - GeneralInternal Medicine03/30/18 Anatoly Anne CNP [address] [place] [address] ReferringInternal Rtldlqqt72/16/24Team MemberRelationshipSpecialtyStart DateEnd Date Marie Tejeda DO [address] [place] [address] PCP - GeneralInternal Medicine03/30/18 Anatoly Anne CNP [address] [place] [address] ReferringInternal Ysqtffym11/16/24Team MemberRelationshipSpecialtyStart DateEnd Date Marie Tejeda DO [address] [place] [address] PCP - GeneralInternal Medicine01/08/23 Marie Tejeda DO [address] [place] [address] PCP - ACO Reach09/10/23 Patrick Beard MD [address] [facility] [address] [place] [id number] Referring RbhpiokzzAuviajlumovhdidg66/7/24 Andrey Grullon MD [address] [place] [address] Referring GaysehcwpDqounjjgb13/7/24 Saúl Davis MD [address] [facility] [address] [place] [address] Referring UighewcjoPhbywpgrtr32/7/24Team MemberRelationshipSpecialtyStart Date End Date Marie Tejeda DO [address] [place] [address] PCP - GeneralInternal Medicine01/08/23 Marie Tejeda DO [address] [place] [address] PCP - ACO Reach09/10/23 Patrick Beard MD 1 [facility] [address] [place], [place] [address] Referring MccemczkeJydgmgojvqrjmzgh29/7/24 Andrey Grullon MD [address] [place] [address] Referring KopnywsgeKfujgneke94/7/24 Saúl Davis MD [address] [place] [address] Referring XqwbntmaqTcbkvlkgjs90/7/24Team MemberRelationshipSpecialtyStart Date End Date Marie Tejeda DO [address] [place] [address] PCP - GeneralInternal Medicine03/30/18 Anatoly Anne CNP [address] [place] [address] ReferringInternal Udzspqdp46/16/24Team MemberRelationshipSpecialtyStart DateEnd Date Marie Tejeda DO [address] [place] [address] PCP - GeneralInternal Medicine03/30/18 Anatoly Anne CNP [address] [place] [address] ReferringInternal Sbkcvewc89/16/24 Team Status: Inactive Member Role Status Dates [...] DO [address] [place] [address] PCP - GeneralInternal Medicine01/08/23 Marie Tejeda DO [address] [place] [address] PCP - ACO Reach09/10/23 Patrick Beard MD 1 [facility] [address] [place] [address] Referring FjlvjeiezTmgcecgqiawyftwy67/7/24 Andrey Grullon MD [address] [place] [address] Referring YbqfrpqnnUlwcefeuh25/7/24 Saúl Davis MD [address] [place] [address] [address] [place] [address] Referring DfvtobhxnRvyiszssfg97/7/24Team MemberRelationshipSpecialtyStart Date End Date Marie Tejeda DO [address] [place] [address] PCP - GeneralInternal Medicine01/08/23 Marie Tejeda DO [address] [place] [address] PCP - ACO Reach09/10/23 Patrick Beard MD [address] [facility] [address] [place] [address] Referring VwoaganffSlqtlzlyhecgoifu00/7/24 Andrey Grullon MD [address] [place] [address] Referring TvpbfkzrqDjkwecfib17/7/24 Saúl Davis MD [address] [facility] [address] [place] [address] Referring MvjagnrpeGfknuafonv33/7/24Team MemberRelationshipSpecialtyStart Date End Date Marie Tejeda DO [address] [place] [address] PCP - GeneralInternal Medicine03/30/18 Anatoly Anne CNP [address] [place] [address] ReferringInternal Eismsgya91/16/24Team MemberRelationshipSpecialtyStart DateEnd Date Marie Tejeda DO [address] [place] [address] PCP - GeneralInternal Medicine03/30/18 Anatoly Anne CNP [address] [place] [address] ReferringInternal Mnoucvje49/16/24Team MemberRelationshipSpecialtyStart DateEnd Date Marie Tejeda DO [address] [place] [address] PCP - GeneralInternal Medicine03/30/18 Anatoly Anne APRN.CNP [address] [place] [address] ReferringInternal Ejphbpdq59/16/24 Team Status: Active Member Role Status Dates Marie Tejeda DO Primary Care Provider Active Start: August 29, 2024 Anat Perez , MDReferring ProviderActiveStart: August 29, 2024 Abdulaziz Root , MDAttending Provider, Other ProviderActiveStart: August 29, 2024 Team MemberRelationshipSpecialtyStart DateEnd Date Marie Tejeda DO [address] [place] [address] PCP - GeneralInternal Medicine01/08/23 Marie Tejeda DO [address] [place] [address] PCP - ACO Reach09/10/23 Patrick Beard MD 1 [facility] [address] [place], [place] [phone] Referring CqqeydrrlUifbhmjprddbezqu13/7/24 Andrey Grullon MD [address] [place] [address] Referring UnfeqghfuCpayzvrvn03/7/24 Saúl Davis MD [address] [facility] [address] [place] [address] Referring PgufetkseNpmjbsjjku97/7/24 Team Status: Inactive Member Role Status Dates Marie Tejeda DO Primary Care Provider Active Start: August 31, 2024 End: August 31, 2024Jose Britoending ProviderActiveStart: August 31, 2024 End: August 31, 2024Team MemberRelationshipSpecialtyStart DateEnd Date Marie Tejeda DO [address] [place] [address] PCP - GeneralInternal Medicine03/30/18 Anatoly Anne, LOG MARKER.LOAN REVIEW OFFICER [address] [place] [address] ReferringInternal Ooqlkkhf83/16/24Team MemberRelationshipSpecialtyStart DateEnd Date Marie Tejeda DO [address] [place] [address] PCP - GeneralInternal Medicine03/30/18 Anatoly Anne, LOG MARKER.LOAN REVIEW OFFICER [address] [place] [address] ReferringInternal Fmqoacfp13/16/24Team MemberRelationshipSpecialtyStart DateEnd Date Marie Tejeda DO [address] [place] [address] PCP - GeneralInternal Medicine01/08/23 Marie Tejeda DO [address] [place] [address] PCP - ACO Reach09/10/23 Patrick Beard MD 1 [facility] [address] [place] [address] Referring GrkqlsvesCzfcwvoftvcsvsbm50/7/24 Andrey Grullon MD [address] [place] [address] Referring CofbsrzceLpvjtslzr90/7/24 Saúl Davis MD [address] [facility] [address] [place] [address] Referring WwqczlbdmEwocxkpjhw49/7/24Team MemberRelationshipSpecialtyStart Date End Date Marie Tejeda DO [address] [place] [address] PCP - GeneralInternal Medicine03/30/18 Anatoly Anne, LOG MARKER.LOAN REVIEW OFFICER [address] [place] [address] ReferringInternal Zkfdeiig00/16/24Team MemberRelationshipSpecialtyStart DateEnd Date Marie Tejeda DO [address] [place] [address] PCP - GeneralInternal Medicine03/30/18 Anatoly Anne, LOG MARKER.LOAN REVIEW OFFICER [address] [place] [address] ReferringInternal Pnilwkmz59/16/24Team MemberRelationshipSpecialtyStart DateEnd Date Marie Tejeda DO [address] [place] [address] PCP - GeneralInternal Medicine03/30/18 Anatoly Anne, LOG MARKER.LOAN REVIEW OFFICER [address] [place] [address] ReferringInternal Yukyeyqn05/16/24Team MemberRelationshipSpecialtyStart DateEnd Date Marie Tejeda DO [address] [place] [address] PCP - GeneralInternal Medicine03/30/18 [facility], LOG MARKER.LOAN REVIEW OFFICER [address] [place] [address] ReferringInternal Ictlabms49/16/24Team MemberRelationshipSpecialtyStart DateEnd Date Marie Tejeda, DO [address] [place] [address] PCP - GeneralInternal Medicine03/30/18 [facility], LOG MARKER.LOAN REVIEW OFFICER [address] [place] [address] ReferringInternal Nfrurqob78/16/24Team MemberRelationshipSpecialtyStart DateEnd Date Marie Tejeda, DO [address] [place] [address] PCP - GeneralInternal Medicine03/30/18 [facility], LOG MARKER.LOAN REVIEW OFFICER [address] [place] [address] ReferringInternal Jsyypvma57/16/24Team MemberRelationshipSpecialtyStart DateEnd Date Marie Tejeda, DO [address] [place] [address] PCP - GeneralInternal Medicine03/30/18 Anatoly Anne, LOG MARKER.LOAN REVIEW OFFICER [address] [place] [address] ReferringInternal Fdigwztp77/16/24Team MemberRelationshipSpecialtyStart DateEnd Date Marie Tejeda DO [address] [place] [address] PCP - GeneralInternal Medicine03/30/18 Anatoly Anne, LOG MARKER.LOAN REVIEW OFFICER [address] [place] [address] ReferringInternal Hdzivqcm55/16/24Team MemberRelationshipSpecialtyStart DateEnd Date Marie Tejeda DO [address] [place] [address] PCP - GeneralInternal Medicine03/30/18 Anatoly Anne, LOG MARKER.LOAN REVIEW OFFICER [address] [place] [address] ReferringInternal Tqkooboy81/16/24 Team Status: Inactive Member Role Status Dates Marie Tejeda DO Primary Care Provider Active Start: October 13, 2024 End: October 13, 2024Linda AnaRAHEEL stephenttmyrna ProviderActiveStart: October 13, 2024 End: October 13, 2024Team MemberRelationshipSpecialtyStart DateEnd Date Marie Tejeda DO [address] [place] [address] PCP - GeneralInternal Medicine01/08/23 Marie Tejeda DO [address] [place] [address] PCP - ACO Reach09/10/23 Patrick Beard MD [address] [facility] [address] [place] [address] Referring PouonapquZkghekgeljbmuydu93/7/24 Andrey Grullon MD [address] [place] [address] Referring SdzqdnrtfHlpbmxcbb13/7/24 Saúl Daivs MD [address] [facility] [address] [place] [address] Referring HsypyukovQaxafmfdnz25/7/24Team MemberRelationshipSpecialtyStart Date End Date Marie Tejeda DO [address] [place] [address] PCP - GeneralInternal Medicine03/30/18 Anatoly Anne APRN.LOAN REVIEW OFFICER [address] [place] [address] ReferringInternal Cszilzlj39/16/24Team MemberRelationshipSpecialtyStart DateEnd Date Marie Tejeda DO [address] [place] [address] PCP - GeneralInternal Medicine03/30/18 Anatoly Anne APRN.LOAN REVIEW OFFICER [address] [place] [address] ReferringInternal Tusdxbcz14/16/24 Team Status: Active Member Role Status Dates Marie Tejeda DO Primary Care Provider Active Start: November 30, 2024 Anat Perez MDOther ProviderActiveStart: November 30, 2024 Abdulaziz Root MDAttending ProviderActiveStart: November 30, 2024 Team MemberRelationshipSpecialtyStart DateEnd Date Marie Tejeda DO [address] [place] [address] PCP - GeneralInternal Medicine03/30/18 Cally, Anatoly, LOG MARKER.LOAN REVIEW OFFICER [address] [place] [address] ReferringInternal Rdmggvab21/16/24Team MemberRelationshipSpecialtyStart DateEnd Date Marie Tejeda DO [address] [place] [address] PCP - GeneralInternal Medicine03/30/18 Cally, Anatoly, LOG MARKER.LOAN REVIEW OFFICER [address] [place] [address] ReferringInternal Zrppklll79/16/24Team MemberRelationshipSpecialtyStart DateEnd Date Marie Tejeda DO [address] [place] [address] PCP - GeneralInternal Medicine03/30/18 Cally, Anatoly, LOG MARKER.LOAN REVIEW OFFICER [address] [place] [address] ReferringInternal Zxuyxbkf64/16/24Team MemberRelationshipSpecialtyStart DateEnd Date Marie Tejeda DO [address] [place] [address] PCP - GeneralInternal Medicine01/08/23 Marie Tejeda DO [address] [place] [address] PCP - ACO Reach09/10/23 Patrick Beard MD [address] [facility] [address] [place] [address] Referring KwldkiallRqfyuvnrfdeowwdr06/7/24 Andrey Grullon MD [address] [place] [address] Referring WxnqajbewEeweqspmg68/7/24 Saúl Davis MD [address] [facility] [address] [place] [address] Referring AbaquyzydYrjzblyxri71/7/24Team MemberRelationshipSpecialtyStart Date End Date Marie Tejeda DO [address] [place] [address] PCP - GeneralInternal Medicine01/08/23 Marie Tejeda DO [address] [place] [address] PCP - ACO Reach09/10/23 Patrick Beard MD 1 [facility] [address] [place] [address] Referring HfwzamwxqAqwknmcsxrrryetz41/7/24 Andrey Grullon MD [address] [place] [address] Referring KalqflrexGgurteeql89/7/24 Saúl Davis MD [address] [facility] [address] [place] [address] Referring LwopfffazNcjcffzqiy06/7/24Team MemberRelationshipSpecialtyStart Date End Date Marie Tejeda DO [address] [place] [address] PCP - GeneralInternal Medicine01/08/23 Marie Tejeda DO [address] [place] [address] PCP - ACO Reach09/10/23 Patrick Beard MD 1 [facility] [address] [place] [address] Referring EshptgyjiLaasxsemkksraiyb63/7/24 Andrey Grullon MD [address] [place] [address] Referring WjxqcmjodJxrffjbex66/7/24 Saúl Davis MD [address] [facility] [address] [place] [address] Referring CevqqorquGcmmbjjjgz40/7/24 Team Status: Active Member Role Status Dates Marie Tejeda DO Primary Care Provider Active Start: March 02, 2025 Anat Perez MDOther ProviderActiveStart: March 02, 2025 Abdulaziz Root MDAttending ProviderActiveStart: March 02, 2025 Team MemberRelationshipSpecialtyStart DateEnd Date Marie Tejeda DO [address] [place] [address] PCP - GeneralInternal Medicine03/30/18 Anatoly Anne APRN.LOAN REVIEW OFFICER [address] [place] [address] ReferringInternal Pftalnrg80/16/24 Team Status: Inactive Member Role Status Dates Marie Tejeda DO Primary Care Provider Active Start: March 27, 2025 End: March 27, 2025Linda Aryan Perez ProviderActiveStart: March 27, 2025 End: March 27, 2025Team MemberRelationshipSpecialtyStart DateEnd Date Marie Tejeda DO [address] [place] [address] PCP - GeneralInternal Medicine01/08/23 Marie Tejeda DO [address] [facility] [address] [place] [address] PCP - ACO Reach09/10/23 Patrick Beard MD 1 [facility] [address] [place] [address] Referring PjcwunvutUkaqtbqjvvlakupz93/7/24 Andrey Grullon MD [address] [place] [address] Referring KbfpfsjzqNsppdwtqn55/7/24 Saúl Davis MD [address] [place] [address] [address], [address] [place] [address] Referring FielgojsgUrdtlfvjhi48/7/24Team MemberRelationshipSpecialtyStart Date End Date Marie Tejeda DO [address] [place] [address] PCP - GeneralInternal Medicine01/08/23 Marie Tejeda DO [address] [place] [address] PCP - ACO Reach09/10/23 Patrick Beard MD 1 [facility] [address] [place] [address] Referring RwcbxtebqSpiiiwtzmlojmsvd66/7/24 Andrey Grullon MD [address] [place] [address] Referring GjtfoaufuBpsjrkuxl08/7/24 Saúl Davis MD [address] [place] [address] [address] [place] [address] Referring SqgyrhvjkEmhdfkgbri66/7/24 Team Status: Active Member Role/Relationship Status Dates Anat Perez MD Medical Office Secretary Active Shikha Aguilera Care ProviderActive Team Status: [...] DO [address] [place] [address] PCP - GeneralInternal Medicine01/08/23 Marie Tejeda DO [address] [place] [address] PCP - ACO Reach09/10/23 Patrick Beard MD 1 [facility] [address] [place] [address] Referring SqvmgqsvhPkgkaltrdpeirkca21/7/24 Andrey Grullon MD [address] [place] [address] Referring GepgxeqbrUahduqsbz02/7/24 Saúl Davis MD [address] [place] [address] [address], [address] [place] [address] Referring YzpkbobexGqsfpytwdx45/7/24Team MemberRelationshipSpecialtyStart Date End Date Almita Deras DO [address] [place] [address] PCP - ACO Reach Marie Tejeda DO [address] [place] [address] PCP - GeneralInternal Medicine01/08/23 Marie Tejeda DO [address] [place] [address] PCP - ACO Reach09/10/23 Patrick Beard MD 1 [facility] [address] [place] [address] Referring ElmnsfcuuYbyjlqqinrbbcjxu21/7/24 Andrey Grullon MD [address] [place] [address] Referring XslgondflRrmzplyfs87/7/24 Saúl Davis MD [address] [place] [address] [address] [place] [address] Referring DxldmqcegXqmonjrwgg51/7/24Team MemberRelationshipSpecialtyStart Date End Date Marie Tejeda DO [address] [place] [address] PCP - GeneralInternal Medicine01/08/23 Marie Tejeda DO [address] [place] [address] PCP - ACO Reach09/10/23 Patrick Beard MD 1 [facility] [address] [place] [address] Referring UpjfppatcVrtufecxcysmiwii58/7/24 Andrey Grullon MD [address] [place] [address] Referring FirjlgbbiHddqemecm83/7/24 Saúl Davis MD [address] [facility] [address] [place] [address] Referring FbbszvfzjSsneqbyjjg78/7/24 (unrecognized sect ion and content) No Status Records FoundNo Status Records FoundNo Status Records FoundNo Status Records FoundNo Status Records FoundNo Status Records FoundNo Status Records FoundNo Status Records FoundNo Status Records FoundNo Status Records FoundNo Status Records FoundNo Status Records FoundNo Status Records FoundNo Status Records Found INFORMATION SOURCE (unrecogn ized section and content) DATE CREATED AUTHOR 01/29/2022 [facility] DATE CREATED AUTHOR AUTHOR'S ORGANIZ ATION 06/11/2022 [facility] DATE CREATED AUTHOR AUTHOR'S ORGANIZ ATION 06/12/2023 [facility] DATE CREATED AUTHOR AUTHOR'S ORGANIZ ATION 10/23/2023 [facility] DATE CREATED AUTHOR AUTHOR'S ORGANIZ ATION 11/18/2023 [facility] DATE CREATED AUTHOR AUTHOR'S ORGANIZ ATION 01/27/2024 [facility] DATE CREATED AUTHOR AUTHOR'S ORGANIZ ATION 05/05/2024 [facility] DATE CREATED AUTHOR AUTHOR'S ORGANIZ ATION 03/08/2025 [facility] DATE CREATED AUTHOR AUTHOR'S ORGANIZ ATION 05/03/2025 [facility] DATE CREATED AUTHOR AUTHOR'S ORGANIZ ATION 05/04/2025 [facility] DATE CREATED AUTHOR AUTHOR'S ORGANIZ ATION 05/19/[address] [facility] DATE CREATED AUTHOR AUTHOR'S ORGANIZ ATION 05/22/[address] [facility] DATE CREATED AUTHOR AUTHOR'S ORGANIZ ATION 05/23/[address] [facility] Source Comments (unrecognize d section and content) In the event this informatio n is protected by the Federal Confidentiality of Alcohol and Drug Abuse Patient Records regulations: The Federal rules restrict any use of the information to criminally investigate or prosecute any alcohol or drug abuse patient.[facility] the event this information is protected by the Federal Confidentiality of Alcohol and Drug Abuse Patient Records regulations: The Federal rules restrict any use of the information to criminally investigate or prosecute any alcohol or drug abuse patient.[facility] HospitalIn the event this information is protected by the Federal Confidentiality of Alcohol and Drug Abuse Patient Records regulations: The Federal rules restrict any use of the information to criminally investigate or prosecute any alcohol or drug abuse patient.[facility] HospitalIn the event this information is protected by the Federal Confidentiality of Alcohol and Drug Abuse Patient Records regulations: The Federal rules restrict any use of the information to criminally investigate or prosecute any alcohol or drug abuse patient.[facility] HospitalIn the event this information is protected by the Federal Confidentiality of Alcohol and Drug Abuse Patient Records regulations: The Federal rules restrict any use of the information to criminally investigate or prosecute any alcohol or drug abuse patient.[facility] HospitalIn the event this information is protected by the Federal Confidentiality of Alcohol and Drug Abuse Patient Records regulations: The Federal rules restrict any use of the information to criminally investigate or prosecute any alcohol or drug abuse patient.[facility] HospitalIn the event this information is protected by the Federal Confidentiality of Alcohol and Drug Abuse Patient Records regulations: The Federal rules restrict any use of the information to criminally investigate or prosecute any alcohol or drug abuse patient.[facility] HospitalIn the event this information is protected by the Federal Confidentiality of Alcohol and Drug Abuse Patient Records regulations: The Federal rules restrict any use of the information to criminally investigate or prosecute any alcohol or drug abuse patient.[facility] HospitalIn the event this information is protected by the Federal Confidentiality of Alcohol and Drug Abuse Patient Records regulations: The Federal rules restrict any use of the information to criminally investigate or prosecute any alcohol or drug abuse patient.[facility] HospitalIn the event this information is protected by the Federal Confidentiality of Alcohol and Drug Abuse Patient Records regulations: The Federal rules restrict any use of the information to criminally investigate or prosecute any alcohol or drug abuse patient.[facility] HospitalIn the event this information is protected by the Federal Confidentiality of Alcohol and Drug Abuse Patient Records regulations: The Federal rules restrict any use of the information to criminally investigate or prosecute any alcohol or drug abuse patient.[facility] HospitalIn the event this information is protected by the Federal Confidentiality of Alcohol and Drug Abuse Patient Records regulations: The Federal rules restrict any use of the information to criminally investigate or prosecute any alcohol or drug abuse patient.[facility] HospitalIn the event this information is protected by the Federal Confidentiality of Alcohol and Drug Abuse Patient Records regulations: The Federal rules restrict any use of the information to criminally investigate or prosecute any alcohol or drug abuse patient.[facility] HospitalIn the event this information is protected by the Federal Confidentiality of Alcohol and Drug Abuse Patient Records regulations: The Federal rules restrict any use of the information to criminally investigate or prosecute any alcohol or drug abuse patient.[facility] HospitalIn the event this information is protected by the Federal Confidentiality of Alcohol and Drug Abuse Patient Records regulations: The Federal rules restrict any use of the information to criminally investigate or prosecute any alcohol or drug abuse patient.[facility] HospitalIn the event this information is protected by the Federal Confidentiality of Alcohol and Drug Abuse Patient Records regulations: The Federal rules restrict any use of the information to criminally investigate or prosecute any alcohol or drug abuse patient.[facility] HospitalIn the event this information is protected by the Federal Confidentiality of Alcohol and Drug Abuse Patient Records regulations: The Federal rules restrict any use of the information to criminally investigate or prosecute any alcohol or drug abuse patient.[facility] HospitalIn the event this information is protected by the Federal Confidentiality of Alcohol and Drug Abuse Patient Records regulations: The Federal rules restrict any use of the information to criminally investigate or prosecute any alcohol or drug abuse patient.[facility] HospitalIn the event this information is protected by the Federal Confidentiality of Alcohol and Drug Abuse Patient Records regulations: The Federal rules restrict any use of the information to criminally investigate or prosecute any alcohol or drug abuse patient.[facility] HospitalIn the event this information is protected by the Federal Confidentiality of Alcohol and Drug Abuse Patient Records regulations: The Federal rules restrict any use of the information to criminally investigate or prosecute any alcohol or drug abuse patient.[facility] HospitalIn the event this information is protected by the Federal Confidentiality of Alcohol and Drug Abuse Patient Records regulations: The Federal rules restrict any use of the information to criminally investigate or prosecute any alcohol or drug abuse patient.[facility] HospitalIn the event this information is protected by the Federal Confidentiality of Alcohol and Drug Abuse Patient Records regulations: The Federal rules restrict any use of the information to criminally investigate or prosecute any alcohol or drug abuse patient.[facility] HospitalIn the event this information is protected by the Federal Confidentiality of Alcohol and Drug Abuse Patient Records regulations: The Federal rules restrict any use of the information to criminally investigate or prosecute any alcohol or drug abuse patient.[facility] HospitalIn the event this information is protected by the Federal Confidentiality of Alcohol and Drug Abuse Patient Records regulations: The Federal rules restrict any use of the information to criminally investigate or prosecute any alcohol or drug abuse patient.[facility] HospitalIn the event this information is protected by the Federal Confidentiality of Alcohol and Drug Abuse Patient Records regulations: The Federal rules restrict any use of the information to criminally investigate or prosecute any alcohol or drug abuse patient.[facility] HospitalIn the event this information is protected by the Federal Confidentiality of Alcohol and Drug Abuse Patient Records regulations: The Federal rules restrict any use of the information to criminally investigate or prosecute any alcohol or drug abuse patient.[facility] HospitalIn the event this information is protected by the Federal Confidentiality of Alcohol and Drug Abuse Patient Records regulations: The Federal rules restrict any use of the information to criminally investigate or prosecute any alcohol or drug abuse patient.[facility] HospitalIn the event this information is protected by the Federal Confidentiality of Alcohol and Drug Abuse Patient Records regulations: The Federal rules restrict any use of the information to criminally investigate or prosecute any alcohol or drug abuse patient.[facility] HospitalIn the event this information is protected by the Federal Confidentiality of Alcohol and Drug Abuse Patient Records regulations: The Federal rules restrict any use of the information to criminally investigate or prosecute any alcohol or drug abuse patient.[facility] HospitalIn the event this information is protected by the Federal Confidentiality of Alcohol and Drug Abuse Patient Records regulations: The Federal rules restrict any use of the information to criminally investigate or prosecute any alcohol or drug abuse patient.[facility] HospitalIn the event this information is protected by the Federal Confidentiality of Alcohol and Drug Abuse Patient Records regulations: The Federal rules restrict any use of the information to criminally investigate or prosecute any alcohol or drug abuse patient.[facility] HospitalIn the event this information is protected by the Federal Confidentiality of Alcohol and Drug Abuse Patient Records regulations: The Federal rules restrict any use of the information to criminally investigate or prosecute any alcohol or drug abuse patient.[facility] HospitalIn the event this information is protected by the Federal Confidentiality of Alcohol and Drug Abuse Patient Records regulations: The Federal rules restrict any use of the information to criminally investigate or prosecute any alcohol or drug abuse patient.[facility] HospitalIn the event this information is protected by the Federal Confidentiality of Alcohol and Drug Abuse Patient Records regulations: The Federal rules restrict any use of the information to criminally investigate or prosecute any alcohol or drug abuse patient.[facility] HospitalIn the event this information is protected by the Federal Confidentiality of Alcohol and Drug Abuse Patient Records regulations: The Federal rules restrict any use of the information to criminally investigate or prosecute any alcohol or drug abuse patient.[facility] HospitalIn the event this information is protected by the Federal Confidentiality of Alcohol and Drug Abuse Patient Records regulations: The Federal rules restrict any use of the information to criminally investigate or prosecute any alcohol or drug abuse patient.[facility] HospitalIn the event this information is protected by the Federal Confidentiality of Alcohol and Drug Abuse Patient Records regulations: The Federal rules restrict any use of the information to criminally investigate or prosecute any alcohol or drug abuse patient.[facility] HospitalIn the event this information is protected by the Federal Confidentiality of Alcohol and Drug Abuse Patient Records regulations: The Federal rules restrict any use of the information to criminally investigate or prosecute any alcohol or drug abuse patient.[facility] Goals (unrecognized section and content) Goals [...] BE BASED ON THE PRIMARY CLINICAL RECORDS. [facility] [employer] [facility]. provides no warranty or guarantee of the accuracy or completeness of information in this document.
--- OUTSIDE RECORDS SUMMARY | 2025-06-21 16:53 | XMS_ITS | CCD ---
Author Organization [facility] Care Team Providers Care Director Ship Name Role Phone Marie Tejeda Primary Care Provider [phone] DELON CARRION Admitting Unavailable DELON CARRION Attending [...] Primary Care Provider JO Rivas Emergency Provider [phone] DO Sushant Cordon Admit Provider DO Sushant Cordon Attending Provider [phone] MD Ashwini Conrad Other Provider [phone] MD Chuck Velasco Other Provider MD Anat Perez Other Provider MD Humberto Diaz Attending Provider MD Tru Yap Other Provider MD Fredi Medrano Admit Provider [phone] MD Fredi Medrano Attending Provider KARIN Rios [...] Other Provider MD Cecily Keen Other Provider [phone] AMADA Wright Other Provider MD Daniel [...] Other Provider DO Guevara Mills Other Provider [phone] DO Jose Roberto Felder Other Provider AMADA Marte Other Provider DO Warren Gross Other Provider [phone] MD Nayeli Jimenez Other Provider [phone] AMADA Berman Other Provider AMADA Pimentel Other Provider MD Vidya Robert Other Provider MD Howard Burrell Other Provider DO Jeevan John Other Provider AMADA Murdock Other Provider [phone] DO Mauricio Drake Other Provider KARIN Morillo Other Provider Unavailable Ashwini Conrad Unavailable Marie Tejeda DO Primary Care Provider DO Marie Tejeda Primary Care Provider JO Rivas Emergency Provider [phone] DO Sushant Cordon Admit Provider MD Ashwini [...] Holm Other Provider AMADA Zavala Other Provider [phone] DO Samantha Wilson Other Provider MD Eric Major Other Provider DO Susahnt Cordon Other Provider MD Audi Gaming Other [...] Provider MD Howard Burrell Other Provider [phone] DO Jeevan John Other Provider [phone] AMADA Murdock Other Provider Vidal, Catherinedontae [...] Other Provider DO Warren Gross Attending Provider [phone] DO Marie Tejeda Primary Care Provider [phone] MD Anat Perez Attending Provider DO Warren Gross Other Provider MD Anat Perez Referring Provider MD Anat Perez Referring Provider [phone] Marie Tejeda DO Primary Care Provider Marie Tejeda DO Unavailable [phone] Chirag OGLESBY, Patrick Unavailable Mitchel OGLESBY, Andrey Caballero Unavailable Saúl Davis MD Unavailable [phone] MD Abdulzaiz Root Attending Provider PATRICK BEARD Attending Unavailable [...] OGLESBY, Abdulaziz Admit Provider Marie Tejeda DO Sullivan Primary Care Provider Cally SENIOR ELECTRONICS TECHNICIAN, Yuerong Unavailable [phone] Marie Tejeda DO Primary Care Provider [phone] Vargas Reis APRN Emergency Provider Jose Alfredo [...] Attending Provider Lisa Hidalgo MD Attending Provider [phone] Cally YBARRA.SENIOR ELECTRONICS TECHNICIAN, Yuerong Unavailable Marie Tejeda DO Primary Care Provider Ileana CURTIS, Marie Primary Care Provider Bertin Smith DO Emergency Provider Queenie Guillory MD, Indra Morrow Admit Provider Lisa Hidalgo MD Attending Provider Saúl Davis MD Unavailable [phone] Cally DOCUMENTATION ENGINEER.SENIOR ELECTRONICS TECHNICIAN, Brandonng Unavailable Ileana CURTIS, Marie Primary Care [...] Indra Guillory E Admitting Unavailab le Vaschak, [facility] Care Unavailable Lisa Hidalgo Attending Unavailable Chela Charles Consulting Unavailable Guille, Yves Consulting Unavailable Chuck Velasco Consulting Queenie Perez, Anat Consulting Unavailable Ana OGLESBY, Anat Attending Provider SALVADOR NARANJO Primary Care Physician ILEANA, MARIE Westfall Attending Unavailable VASCHAK, AMRIE Westfall Attending Unavailable VASCHAK, MARIE Westfall Referring Unavailable VASCHAK, MARIE Westfall Referring Unavailable WARMARGA PAIGE Attending Unavailable VASCHAK, MARIE Westfall Attending Unavailable VASCHAK, MARIE Westfall Referring Unavailable VASCHAK, MARIE Westfall Attending Unavailable BETO GARCIA Attending Unavailable STEPHANIE SHERIDAN Attending Unavailable VASCHAK, MARIE Westfall Referring Unavailable YOMI CHONG Attending Unavailable VASCHAK, [facility] Unavailab AYANA Dudley Referring Unavailable VASCHAK, [facility] Unavailab AYANA Dudley Attending Unavailable VASCHAK, [facility] Unavailab AYANA Dudley Referring Unavailable AYANA ZAVALA Attending Unavailable VASCHAK, [facility] Unavailab AYANA Dudley Attending Unavailable AYANA ZAVALA Referring Unavailable VASCHAK, [facility] Unavailab le CALLY, YUEROARSLAN Referring Unavailable AYANA ZAVALA Attending Unavailable VASCHAK, [facility] Unavailab le VASCHAK, [facility] Unavailab le VASCHAK, [facility] Unavailab le VASCHAK, [facility] Unavailab AYANA Dudley Attending Unavailable Chirag [facility], [facility] Un[facility] Andrey Grullon MD Unavailable Saúl Davis MD Unavailable Almita Deras DO Unavailable [phone] Mely Rollins Attending Unavailable Tristan MELCHOR Attending Unavailable Tristan MELCHOR Attending Unavailable Tristan MELCHOR Referring Unavailable Tristan MELCHOR Attending Unavailable Tristan MELCHOR Attending Unavailable Mely Rollins Attending Unavailable Medications Current Medications MedicationDrug Class(es)DatesSig (Normalized)Sig (Original)[id number] 200 actuat albuterol 0.09 mg/actuat metered dose inhaler (17 sources)beta2-Adrenergic AgonistStart: 07-20-2024 End: 28-30-8686jmox 2 puff(s) by inhalation every four hours for wheezing albuterol HFA (ProAir HFA) 90 mcg/act inhaler Indications: Bronchitis Inhale 2 puffs every 4 (four)hours if needed for wheezing or shortness of breath 8.5 g 07/20/2024 07/20/2025 ActiveamLODIPine 5 mg oral tablet (2 sources)Dihydropyridine Calcium Channel BlockerStart: 83-14-3747giza 1 tablet by mouth once dailyamLODIPine (NORVASC) 5 MG tablet Take 1 tablet by mouth daily 30 tablet 3 01/07/2022 ActiveStart: 00-44-9666yhrh 1 tablet by mouth once daily amLODIPine (NORVASC) 5 MG tablet Take 1 tablet by mouth daily 30 tablet 3 01/07/2022 ActiveStart: 24-43-6394vxsb 5 mg by mouth once daily5 mg, Oral, DAILY, First dose on 01/04/22 at 1500, Until Discontinuedamylase 598527 unt / lipase 21149 unt / protease 39035 unt delayed release oral capsule (20 sources)Start: 63-17-0117Bgayf 24,000 units oral delayed release capsule Refills(s) 0 Start Date: 04/25/25 Status: Ordered Medication Dispense Status: Completed Total Allowed Fills: 1 Fills Dispensed: 0Start: 04-09-2025 End: 54-96-5810eigspgxgfgrp, Cox-Kaqg-Vnnh, (Creon) 70845-30947 units capsule Indications: Pancreatic insufficiency (HCC) TAKE 2 CAPSULES BY MOUTH DAILY WITH MEALS AND 1 WITH 2 SNACKS DAILY DIRECTED 250 capsule 05/02/2025 ActiveStart: 65-17-2990klgxzqcysexj, Wwl-Lphn-Tbcn, (Creon) 75720-47114 units capsule Indications: Pancreatic insufficiency (HCC) TAKE 2 CAPSULES BY MOUTH DAILY WITH MEALS AND 1 WITH 2 SNACKS DAILY DIRECTED 250 capsule 03/05/2025 ActiveStart: 01-71-9544ajktdhqespiu, Yhv-Ytzg-Qxzo, (Creon) 70180-83110 units capsule Indications: Pancreatic insufficiency (HCC) TAKE 2 CAPSULES BY MOUTH DAILY WITH MEALS AND 1 CAPSULE BY MOUTH WITH SNACKS DIRECTED 240capsule 3 08/15/2024 ActiveStart: 72-43-0687tjgdgxibrqwh, Brn-Lngu-Fzgw, (Creon) 53965-49188 units capsule Indications: Pancreatic insufficiency (CMS/HCC) TAKE 2 CAPSULES BY MOUTH DAILY WITH MEALS AND 1 CAPSULE BY MOUTH WITH SNACKS [id number] capsule 3 01/25/2024 ActiveStart: 04-87-6978lijl 80105-10466 capsules by mouth once Pcpmth-Tqiaabyl-Hnupsqg (Pork) (Creon) 24,000-76,000 -120,000 unit Capsule,Delayed Release(Dr/Ec) Active 2 CAP PO 3x/Day with meals 120 30 0 May 07, 2023 12:00am Complies with drug therapyStart: 05-02-2018 End: 39-77-7880ealm 1 capsule by mouth three times daily as needed for muscle ojajdwKrjlar-Ncfriorj-Zxhivlo (Pork) (Creon) 24,000-76,000 -120,000 unit capsule,delayed release(DR/EC) Discontinued 1 CAP PO Three times daily as needed for gastrointestinal spasms or cramping February 05, 2024 12:00am August 31, 2024 11:08am administer one cap with zihhknihnvwy-cbkhbmjw-dtoddqj (CREON) 94400-26504 units delayed release capsule Take 12,000 Units by mouth take with snacks 0 Activeaspirin 81 mg oral capsule (20 sources)Platelet Aggregation Inhibitor, Nonsteroidal Anti-inflammatory Drug Start: 71-31-5764uhwm 1 mg by mouth every twenty-four hoursaspirin 81 mg oral capsule mg cap(s), Oral, q24hr, Refills(s) 0 Start Date: 04/25/25 Status: Ordered Medication Dispense Status: Completed Total Allowed Fills: 1 Fills Dispensed: 0Start: 05-03-2023 End: 71-84-2122jdwz 1 tablet by mouth once dailyAspirin 81 mg Tablet,Delayed Release (Dr/Ec) Active 81 MG PO Daily 30 30 0 May 07, 2023 12:00am Complies with drug therapyatorvastatin 40 mg oral tablet (20 sources)HMG-CoA Reductase InhibitorStart: 55-25-6761sfukrlsmhfpv 40 mg Tab Refills(s) 0 Start Date: 04/25/25 Status: Ordered Medication Dispense Status: Completed Total Allowed Fills: 1 Fills Dispensed: 0Start: 05-03-2023 End: 82-90-6551zete 1 tablet by mouth once daily at bedtimeAtorvastatin 80 mg tablet Discontinued 80 MG PO Daily at bedtime 90 90 1 October 28, 2023 12:00am February 28, 2024 8:12am End: 22-48-8762bjnppjopujfq (Lipitor) 80 MG tablet Take 40 mg by mouth Daily 05/02/2025 Discontinued (Reorder)Blood Sugar Diagnostic (20 sources)Start: 02-34-8154Uphux Sugar Diagnostic Active STRIP 120 September 05, 2023 12:00am Fingerstick blood sugar ACHSStart: 89-02-1718Pdrcq Sugar Diagnostic Active STRIP 120 September 05, 2023 1:00am Fingerstick blood sugar ACHSBlood-Glucose Sensor (DEXCOM G7 SENSOR) delfin (8 sources)Start: 92-68-2405Rmfyc-Glucose Sensor (DEXCOM G7 SENSOR) delfin Indications: 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 3 each 12/25/2024 01/01/2025 DiscontinuedStart: 21-22-2706Qttsc-Glucose Sensor (DEXCOM G7 SENSOR) delfin Indications: Type [...] oral capsule (20 sources)Cephalosporin AntibacterialStart: 05-17-2025 End: 03-59-8631tqzi 1 capsule by mouth every twelve hoursKeflex 500 mg Cap 500 mg = 1 cap(s), Oral, q12hr, X 5 day(s), # 10 cap(s), Refills(s) 0, Pharmacy: [facility]/pharmacy #[id number], 177, cm, 05/17/25 10:58:00 EST, Height/Length Dosing, 61.7, kg, 05/17/25 10:58:00 EST, Weight Dosing Start Date: 05/17/25 Stop Date: 05/22/25 Status: Ordered Medication Dispense Status: Completed Quantity: 10.0 Unit: cap(s) Total Allowed Fills: 1 Fills Dispensed: 0Start: 99-58-9531echv 1 capsule by mouth once dailyKeflex 500 mg Cap 500 mg = 1 cap(s), Oral, Daily, Take 1 cap day prior to procedure and 1 cap day of procedure, # 2 cap(s), Refills(s) 0, Pharmacy: [facility]/pharmacy #[id number], 177, cm, 04/25/25 14:48:00 EDT,Height/Length Dosing, 61.5, kg, 04/25/25 14:48:00 EDT, Weight Dosing Start Date: 04/26/25 Status: Ordered Medication Dispense Status: Completed Quantity: 2.0 Unit: cap(s) Total Allowed Fills: 1 FillsDispensed: 0Start: 06-21-2024 End: 83-33-5752dwnv 1 capsule by mouth three times dailyCephalexin 500 mg capsule Discontinued 500 MG PO Three times daily 21 June 21, 2024 11:28am July 16, 2024 8:10pmStart: 06-18-2024 End: 87-24-8844vqcj 1 capsule by mouth twice dailyCephalexin 500 mg capsule Discontinued 500 MG PO Twice daily 14 7 0 June 18, 2024 1:00am June 21, 2024 11:28amcetirizine hydrochloride 10 mg oral tablet (20 sources)Histamine-1 Receptor Antagonist End: 62-40-8605pbue 1 tablet by mouth once dailycetirizine (ZYRTEC) 10 mg tablet Take 10 mg by mouth once daily. Activecholecalciferol 0.05 mg oral tablet (20 sources)Vitamin DStart: 10-26-2023 End: 16-30-9525sqys 1 tablet by mouth once dailycholecalciferol (Vitamin D-3) 50 MCG (2000 UT) tablet Take 2,000 Units by mouth Daily 10/26/2023 ActiveStart: 87-07-6300cwwg 100 ug by mouth once dailyCholecalciferol (Vitamin D3) 125 mcg/0.5 mL (5K unit/0.5mL) drops Active 100 MCG PO Daily October 26, 2023 12:00am Complies with drug therapyStart: 94-81-6404ddtn 100 ug by mouth once dailyCholecalciferol (Vitamin D3) Active 100 MCG PO Daily October 25, 2023 11:00pmStart: 78-86-4103bago 100 ug by mouth once dailyCholecalciferol (Vitamin D3) Active 100 MCG PO Daily October 26, 2023 12:00amStart: 08-31-2023 End: 17-48-0203shka 1 tablet by mouth once dailyCholecalciferol (Vitamin D3) (Vitamin D3) 50 mcg (2,000 unit) tablet Discontinued 50 MCG PO Daily August 31, 2023 1:00am October 28, 2023 2:44pm End: 19-79-1637fmbd 1 capsule by mouth in the morningcholecalciferol (Vitamin D- 3) 25 MCG (1000 UT) capsule Take 25 mcg by mouth in the morning. 07/20/2024 Discontinued (Therapy completed)Cholecalciferol (Vitamin D3) 125 mcg/0.5 mL (5K unit/0.5mL) drops (7 sources)Start: 97-12-1902owdb 100 ug by mouth once dailyCholecalciferol (Vitamin D3) 125 mcg/0.5 mL (5K unit/0.5mL) drops Active 100 MCG PO Daily October 26, 2023 12:00amStart: 44-64-3924cupx 100 ug by mouth once daily Cholecalciferol (Vitamin D3) 125 mcg/0.5 mL (5K unit/0.5mL) drops Active 100 MCG PO Daily October 25, 2023 11:00pmCreon 6000 UNIT (4 sources)Creon 6000 UNIT as directed Orally Activedocusate sodium 50 mg / sennosides, senior living 8.6 mg oral tablet (2 sources)take 1 tablet by mouth once dailysenna-docusate sodium (Senokot-S) 8.6-50 MG tablet Take 1 tablet by mouth Daily Activedoxycycline hyclate 100 mg oral capsule (2 sources)Tetracycline-class DrugStart: 08-30-2024 End: 20-62-3520ywltrcormba (Vibramycin) 100 MG capsule Indications: Lower respiratory [...] glucagon 5 mg/ml auto-injector (20 sources)Antihypoglycemic AgentStart: 55-34-2815gtugdagp (GVOKE HYPOPEN 2- PACK) 1 mg/0.2 mL auto-injector Inject 1 mg subcutaneously as needed. 0.4mL 3 07/06/2024 ActiveStart: 54-40-8612uxoesbhx (rDNA) injection 1 mginject 1 mg by subcutaneous injection onceGvoke HypoPen 1-Pack 1 MG/0.2ML injection Inject 1 mg under the skin 1 (one) time if needed Hagfrr145 ml glucose 50 mg/ml injection (3 sources)Start: 80-68-0892bxtutsuz bolus 10% 125 mLStart: 01-02-2022 End: 00-95-5170tntijqla 5 % solution1 ml hydrALAZINE hydrochloride 20 mg/ml injection (1 source)Arteriolar VasodilatorStart: 87-62-1194ngfyLTXQXMT (APRESOLINE) injection 10 mg24 hr hydroCHLOROthiazide 12.5 mg / metoprolol succinate 25 mg extended release oral tablet (2 sources)Thiazide Diuretic, beta-Adrenergic BlockerStart: 04-25-2025 hydrochlorothiazide-metoprolol 12.5 mg-25 mg oral tablet, extended release Refill(s) 0 Start Date: 04/25/25 Status: Ordered Medication Dispense Status: Completed Total Allowed Fills: 1 Fills Dispensed: 0Insulin Aspart U-100 (Novolog Flexpen U-100 Insulin) 100 unit/mL (3 mL) Insulin Pen (20 sources)Start: 08-55-4779Avsmbjn Aspart U-100 (Novolog Flexpen U-100 Insulin) 100 unit/mL (3 mL) Insulin Pen Active 0 UNIT SUBCUT 3X/Day with meals and bedtime 0 September 03, 2023 1:00am Please contact the information source for Protocol details.Start: 09-03-2023 End: 88-86-5946Xrdqmbh Aspart U-100 (Novolog Flexpen U-100 Insulin) 100 unit/mL (3 mL) Insulin Pen Discontinued 0 UNIT SUBCUT 3x/Day with meals 0 September 03, 2023 1:00am October 28, 2023 2:44pm On Hold: medication in twice Please contact the information source for Protocol details.Start: 60-40-3142Vpiqohg Aspart U- 100 (Novolog Flexpen U-100 Insulin) 100 unit/mL (3 mL) Insulin Pen Active 0 UNIT SUBCUT 3X/Day with meals and bedtime 0 September 03, 2023 12:00am Please contact the information source for Protocol details.Start: 09-03-2023 End: 43-94-1329Rgvnvna Aspart U-100 (Novolog Flexpen U-100 Insulin) 100 unit/mL (3 mL) Insulin Pen Discontinued 0 UNIT SUBCUT 3x/Day with meals 0 September 03, 2023 12:00am October 28, 2023 1:44pm On Hold: medication in twice Please contact the information source for Protocol details.Start: 71-42-7953Xjvlnqm Aspart U- 100 (Novolog Flexpen U-100 Insulin) 100 unit/mL (3 mL) Insulin Pen Active 0 UNIT SUBCUT 3X/Day with meals and bedtime 0 September 03, 2023 12:00amStart: 09-03-2023 End: 42-27-2041Abyfvhy Aspart U-100 (Novolog Flexpen U-100 Insulin) 100 unit/mL (3 mL) Insulin Pen Discontinued 0 UNIT SUBCUT 3x/Day with meals 0 September 03, 2023 12:00am October 28, 2023 1:44pmStart: 09-03-2023 End: 81-65-1776Rycuxzq Aspart U-100 (Novolog Flexpen U-100 Insulin) 100 unit/mL (3 mL) Insulin Pen Discontinued 0 UNIT SUBCUT 3x/Day with meals 0 September 03, 2023 1:00am October 28, 2023 2:44pmStart: 31-06-3777Jcbzela Aspart U-100 (Novolog Flexpen U-100 Insulin) 100 unit/mL (3 mL) Insulin Pen Active 0 UNIT MUNOZ BCUT 3x/Day with meals 0 September 03, 2023 1:00amStart: 11-62-9479Oiblpiu Aspart U-100 (Novolog Flexpen U-100 Insulin) 100 unit/mL (3 mL) Insulin Pen Active 0 UNIT SUBCUT 3X/Day with meals and bedtime 0 September 03, 2023 1:00am Start: 05-07-2023 End: 28-84-6971Sdssfvq Aspart U-100 (Novolog Flexpen U-100 Insulin) 100 unit/mL (3 mL) Insulin Pen Discontinued 0 UNITS SUBCUT 3x/Day with meals 0 May 07, 2023 12:00am September 05, 2023 3:28pm Please contact the information source for Protocol details.Start: 05-07-2023 End: 53-68-5350Srudnho Aspart U-100 (Novolog Flexpen U-100 Insulin) 100 unit/mL (3 mL) Insulin Pen Discontinued 0 UNITS SUBCUT 3x/Day with meals 0 May 06, 2023 11:00pm September 05, 2023 2:28pm Please contact the information source for Protocol details.Start: 05-07-2023 End: 50-89-6085ngoztq 1 dose by subcutaneous injection at bedtimeInsulin Aspart U-100 (Novolog Flexpen U-100 Insulin) 100 unit/mL (3 mL) Insulin Pen Discontinued 1 sliding scale dose SUBCUT Before meals and at bedtime May 06, 2023 11:00pm September 05, 2023 2:28pmStart: 05-07-2023 End: 80-76-9400Wwwsqnp Aspart U-100 (Novolog Flexpen U-100 Insulin) 100 unit/mL (3 mL) Insulin Pen Discontinued 0 UNITS SUBCUT 3x/Day with meals May 06, 2023 11:00pm September 05, 2023 2:28pmStart: 05-07-2023 End: 35-99-7803oyxwjg 1 dose by subcutaneous injection at bedtimeInsulin Aspart U-100 (Novolog Flexpen U-100 Insulin) 100 unit/mL (3 mL) Insulin Pen Discontinued 1 sliding scale dose SUBCUT Before meals and at bedtime May 07, 2023 12:00am September 05, 2023 3:28pmStart: 05-07-2023 End: 42-28-4892Fxtpyan Aspart U-100 (Novolog Flexpen U-100 Insulin) 100 unit/mL (3 mL) Insulin Pen Discontinued 0 UNITS SUBCUT 3x/Day with meals May 07, 2023 12:00am September 05, 2023 3:28pmStart: 32-25-9713edykwg 1 dose by subcutaneous injection at bedtimeInsulin Aspart U-100 (Novolog Flexpen U-100 Insulin) 100 unit/mL (3 mL) Insulin Pen Active 1 sliding scale dose SUBCUT Before meals and at bedtime May 06, 2023 11:00pmStart: 05-07-2023 Insulin Aspart U-100 (Novolog Flexpen U-100 Insulin) 100 unit/mL (3 mL) Insulin Pen Active 0 UNITS SUBCUT 3x/Day with meals May 06, 2023 11:00pmStart: 98-24-0237rywkze 1 dose by subcutaneous injection at bedtimeInsulin Aspart U-100 (Novolog Flexpen U-100 Insulin) 100 unit/mL (3 mL) Insulin Pen Active 1 sliding scale dose SUBCUT Before meals and at bedtime May 07, 2023 12:00am Start: 06-47-9899Jlebecm Aspart U-100 (Novolog Flexpen U-100 Insulin) 100 unit/mL (3 mL) Insulin Pen Active 0 UNITS SUBCUT 3x/Day with meals May 07, 2023 12:00amStart: 05-03-2023 End: 92-94-4508Vfkbeoi Aspart U-100 (Novolog Flexpen U-100 Insulin) 100 unit/mL (3 mL) Insulin Pen Discontinued 0 UNITS SUBCUT 3x/Day with meals May 03, 2023 12:00am May 03, 2023 5:09pm Please contactthe information source for Protocol details.Start: 05-03-2023 End: 71-22-9849Otwbqws Aspart U-100 (Novolog Flexpen U-100 Insulin) 100 unit/mL (3 mL) Insulin Pen Discontinued 0 UNITS SUBCUT 3x/Day with meals 0 May 02, 2023 11:00pm May 03, 2023 4:09pm Please contactthe information source for Protocol details.Start: 05-03-2023 End: 67-59-8842Snwbkav Aspart U-100 (Novolog Flexpen U-100 Insulin) 100 unit/mL (3 mL) Insulin Pen Discontinued 0 UNITS SUBCUT 3X/Day with meals and bedtime 0 May 02, 2023 11:00pm May 03, 2023 4:10pmStart: 05-03-2023 End: 55-48-8292Vwtsvof Aspart U-100 (Novolog Flexpen U-100 Insulin) 100 unit/mL (3 mL) Insulin Pen Discontinued 0 UNITS SUBCUT 3x/Day with meals 0 May 02, 2023 11:00pm May 03, 2023 4:09pmStart: 05-03-2023 End: 50-15-5429Pcahuqs Aspart U-100 (Novolog Flexpen U-100 Insulin) 100 unit/mL (3 mL) Insulin Pen Discontinued 0 UNITS SUBCUT 3X/Day with meals and bedtime 0 May 03, 2023 12:00am May 03, 2023 5:10pmStart: 05-03-2023 End: 23-68-8142Zrrtmkk Aspart U-100 (Novolog Flexpen U-100 Insulin) 100 unit/mL (3 mL) Insulin Pen Discontinued 0 UNITS SUBCUT 3x/Day with meals 0 May 03, 2023 12:00am May 03, 2023 5:09pmStart: 29-22-3037Ugkvtyy Aspart U-100 (Novolog Flexpen U-100 Insulin) 100 unit/mL (3 mL) Insulin Pen Active 0 UNITS S UBCUT 3X/Day with meals and bedtime 0 May 03, 2023 12:00amStart: 11-09-1917Eseqjwi Aspart U-100 (Novolog Flexpen U-100 Insulin) 100 unit/mL (3 mL) Insulin Pen Active 0 UNITS SUBCUT 3x/Day with meals 0 May 03, 2023 12:00aminsulin aspart, human 100 unt/ml injectable solution (20 sources)Insulin AnalogStart: 14-49-9197Ixebvat Aspart 100 UNIT/ML solution 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 Inject before meals. Use a directed by beader tender. 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 Complies with drug therapyStart: 08-31-2023 End: 33-34-2843Tslxhlx Aspart U-100 (Novolog U-100 Insulin Aspart) 100 unit/mL solution Discontinued 50 UNIT CNTSUBQINF Daily August 31, 2023 1:00am September 05, 2023 3:28pm per insulin pumpStart: 08-18-2023 End: 23-25-4998SmonCYK FLEXPEN 100 UNIT/ML pen 08/18/2023 07/20/2024 Discontinued (Therapy completed)Start: 05-07-2023 End: 00-33-2180Ohtkvih Aspart U-100 (Novolog Flexpen U-100 Insulin) 100 unit/mL (3 mL) Insulin Pen Discontinued 0 UNIT SUBCUT 3x/Day with meals Protocol: *Carb coverage 1:10*Give 1 unit of rapid-acting insulin for every 10 gm of carbohydrates eaten at meals 0 0 September 03, 2023 1:00am October 28, 2023 2:44pm On Hold: medication in twice Please contact the information source for Protocol details.Start: 05-03-2023 End: 14-66-2210Ffkeiri Aspart U-100 (Novolog Flexpen U-100 Insulin) 100 [...] information source for Protocol details.Start: 04-28-2023 End: 60-46-5956Kormyiw Aspart U-100 (Novolog Flexpen U-100 Insulin) 100 unit/mL (3 mL) Insulin Pen Discontinued 0 UNITS SUBCUT 3x/Day with meals Protocol: *CARB COVERAGE 1:10*GIVE 1 UNIT OF ASPART FOR EVERY 10 GM CHO EATEN AT MEALS 0 0 May 03, 2023 12:00am May 03, 2023 5:09pm Please contact the [employer] source for Protocol details.Start: 04-28-2023 End: 15-28-0780bcvpfk 5 [IU] by subcutaneous injection after breakfastInsulin [...] 100 unt/ml pen injector (20 sources)Insulin AnalogStart: 08-32-2246xwqjjh 1 [IU] by subcutaneous injection at bedtimeinsulin glargine (Basaglar KwikPen) 100 UNIT/ML pen 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) Inject 12 Units under the skin at bedtime 10 mL 06/02/2024 07/20/2024 Discontinued (Therapy completed)Start: 05-30-2024 End: 83-63-6263ekgfuf 16 [IU] by subcutaneous injection at bedtimeinsulin glargine (Lantus) 100 UNIT/ML injection Indications: 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) Inject 16 Units under the skin at bedtime 10 mL 05/30/2024 08/28/2024 ActiveStart: 09-03-2023 End: 79-64-7560Rgozkro Glargine (Lantus Solostar U-100 Insulin) 100 unit/mL (3 mL) Insulin Pen Discontinued 24 UNIT SUBCUT Daily 0 0 September 03, 2023 1:00am October 28, 2023 2:43pm On Hold: medication in twiceStart: 08-31-2023 End: 85-77-9108Boqiaog Glargine (Lantus Solostar U-100 Insulin) 100 unit/mL (3 mL) Insulin Pen Discontinued 16 UNIT SUBCUT Bedtime August 31, 2023 1:00am July 16, 2024 8:12pmStart: 27-84-2043bmlkfh 8 [IU] by subcutaneous injection at bedtimeInsulin Glargine (Lantus Solostar U-100 Insulin) 100 unit/mL (3 mL) Insulin Pen Active 8 UNIT SUBCUT Bedtime August 31, 2023 1:00amStart: 08-30-2023 End: 30-37-7545nxzexa 8 [IU] by subcutaneous injection at bedtimeinsulin glargine (Lantus) 100 UNIT/ML injection Indications: 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 (CMS/HCC) Inject 8 Units under the skin at bedtime 08/30/2023 05/30/2024 Discontinued (Reorder)Start: 08-20-2023 End: 85-96-3497Qbhdoy SoloStar 100 UNIT/ML pen Inject 18 Units under the skin at bedtime 08/20/2023 07/20/2024 Discontinued (Therapy completed)Start: 05-03-2023 End: 71-52-0939denblb 7 [IU] by subcutaneous injection twice dailyInsulin Glargine (Lantus Solostar U-100 Insulin) 100 unit/mL (3 mL) Insulin Pen Discontinued 7 UNITS SUBCUT Twice daily 4.2 30 0 May 07, 2023 12:00am August 31, 2023 4:55pmStart: 04-28-2023 End: 92-18-7577Hijfsth Glargine (Lantus Solostar U-100 Insulin) 100 unit/mL (3 mL) insulin pen Discontinued 18 UNIT SUBCUT Bedtime April 28, 2023 12:00am May 03, 2023 5:10pm End: 37-42-0554yevcak 100 [IU] by subcutaneous injection at bedtimeinsulin [...] - Basal Dose (Patient Supplied) (1 source)Start: 36-79-5462Klodtdn Pump - Basal Dose (Patient Supplied)Insulin Pump - Bolus Dose (Patient Supplied) (1 source)Start: 09-30-8467Fmpxjuh Pump - Bolus Dose (Patient Supplied)insulin pump cart,auto,BT,G6/7 (OMNIPOD 5 G6-G7 PODS, GEN 5,) crtg (20 sources)Start: 02-76-0004svevkgg pump cart,auto,BT,G6/7 (OMNIPOD 5 G6-G7 PODS, GEN 5,) crtg Indications: 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 10 Each 07/06/2024 ActiveLactobac no.41/Bifidobact no.7 (PROBIOTIC-10 ORAL) (20 sources)Lactobac no.41/Bifidobact no.7 (PROBIOTIC-10 ORAL) Take by mouth once daily. ActiveLactobacillus Combination No.4 (Probiotic) 3 billion cell capsule (6 sources)Start: 26-40-7649kpir 3 capsules by mouth once dailyLactobacillus Combination No.4 (Probiotic) 3 billion cell capsule Active 3000 MMU CELLS PO Daily August 31, 2024 1:00am administer with a meal Complies with drug therapyStart: 63-24-3035omdh 3 capsules by mouth once dailyStart: 04-71-1968tpob 3 capsules by mouth once dailyLactobacillus Combination No.4 (Probiotic) 3 billion cell capsule Active 3000 MMU CELLS PO Daily August 31, 2024 1:00am administer with a mealStart: 94-84-2692mujb 3 capsules by mouth once daily Lactobacillus Combination No.4 (Probiotic) 3 billion cell capsule Active 3000 MMU CELLS PO Daily August 31, 2024 12:00am administer with a meal lipase/protease/amylase (CREON ORAL) (2 sources)take 45342 mg by mouth three times dailylipase/protease/amylase (CREON ORAL) Take 24,000 mg by mouth 3 times a day. 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) Take 1 tablet (25 mg) by mouth Daily 05/02/2025 Activelutein 6 mg oral capsule (20 sources)Start: 10-26-2023 End: 58-74-1564erpv 1 capsule by mouth once dailyLutein 6 [...] melatonin 1 mg oral tablet (1 source)Start: 49-09-8220cezplocic tablet 3 mg24 hr metoprolol succinate 50 mg extended release oral tablet (20 sources)beta-Adrenergic BlockerStart: 05-02-2025 End: 69-12-0410vmwb 0.5 tablet by mouth every twenty-four hours in the morning metoprolol succinate XL (Toprol-XL) 50 MG 24 hr tablet Indications: Hypertensive heart disease withchronic systolic congestive heart failure (HCC) Take 0.5 tablets (25 mg) by mouth in the morning and 0.5 tablets (25 mg) before bedtime. Do not crush or chew. 05/02/2025 ActiveStart: 48-70-5528ekzk 2 tablets by mouth once daily at bedtimeMetoprolol Succinate 25 mg tablet extended release 24 hr Active 12.5 MG PO Daily at bedtime 45 90 0Sept2024 12:00am Complies with drug therapyStart: 07-16-2024 End: 81-56-8284gogi 2 tablets by mouth twice dailyMetoprolol Succinate 25 mg tablet extended release 24 hr Discontinued 12.5 MG PO Twice daily 90 90 2 December 05, 2024 9:38am March 27, 2025 10:50amStart: 51-67-4783mxza 0.5 tablet by mouth every twelve hoursmetoprolol succinate ER (TOPROL XL) 50 mg 24 hr tablet Take 0.5 tablets by mouth every 12 hours. 06/21/2024 ActiveStart: 05-25-2024 End: 35-40-1862ibdd 1 tablet by mouth twice dailyMetoprolol Succinate 50 mg Tablet Extended Release 24 Hr Discontinued 50 MG PO Twice daily 60 30 3 May 25, 2024 1:00am July 16, 2024 8:14pmStart: 05-16-2024 End: 38-97-5511iuli 2 tablets by mouth twice dailyMetoprolol Succinate 25 mg tablet extended release 24 hr Discontinued 12.5 MG PO Twice daily May 16, 2024 1:00am May 25, 2024 10:49amStart: 01-51-8408bfuu 12.5 mg by mouth twice dailyMetoprolol Succinate Active 12.5 MG PO Twice daily May 16, 2024 12:00amStart: 04-24-2024 End: 13-34-0309peaa 0.5 tablet by mouth every twenty-four hours in the morning metoprolol succinate XL (Toprol-XL) 25 MG 24 hr tablet Indications: Coronary arteriosclerosis (CMS/HCC) Take 0.5 tablets (12.5 mg) by mouth in the morning and 0.5 tablets (12.5 mg) before bedtime. 180 tablet 3 04/24/2024 05/30/2024 Discontinued (Therapy completed)Start: 02-15-2024 End: 62-67-3060hnel 2 tablets by mouth once dailyMetoprolol Succinate 25 mg tablet extended release 24 hr Discontinued 12.5 MG PO Daily 45 90 1 February 15, 2024 12:00am May 16, 2024 1:54pmStart: 02-15-2024 End: 23-09-2530dpgz 12.5 mg by mouth once dailyMetoprolol Succinate Discontinued 12.5 MG PO Daily 45 90 February 14, 2024 11:00pm May 16, 2024 12:54pm Start: 02-05-2024 End: 06-99-4432diby 2 tablets by mouth twice dailyMetoprolol Succinate (Toprol Xl) 25 mg tablet extended release 24 hr Discontinued 12.5 MG PO Twice daily February 05, 2024 12:00am February 15, 2024 10:58am End: 40-44-1424kdph 1 tablet by mouth every twenty-four hours in the morning metoprolol succinate XL (Toprol-XL) 25 MG 24 hr tablet Take 12.5 mg by mouth in the morning and 12.5 mg before bedtime. Do not crush or chew.. 01/02/2025 Discontinued (Dose adjustment)Multi Vitamins oral tablet (2 sources)Start: 86-18-4142mxzn 1 tablet by mouth once dailyMulti Vitamins oral tablet Oral, Daily, Refill(s) 0 Start Date: 04/25/25 Status: Ordered Medication Dispense Status: Completed Total Allowed Fills: 1 Fills Dispensed: 0Start: 49-40-2122cxil 1 tablet by mouth once dailyMulti Vitamins oral tablet Oral, Daily, Refill(s) 0 Start Date: 04/25/25 Status: Ordered Repeat number: 1Multiple Vitamins-Minerals (LUTEIN-ZEAXANTHIN PO) (1 source)take 1 tablet by mouth once dailyMultiple Vitamins-Minerals (LUTEIN- ZEAXANTHIN PO) Take 1 tablet by mouth daily 0 ActiveMultivit With Min-Folic Acid (Centrum Adults) 12 mcg tablet,chewable (20 sources)Start: 27-14-7523zady 1 tablet by mouth once dailyMultivit With Min- Folic Acid (Centrum Adults) 12 mcg tablet,chewable Active 1 TAB PO Daily October 26, 2023 12:00am Complies with drug therapyStart: 53-83-9719gpmj 1 tablet by mouth once dailyStart: 41-53-4868tegf 1 tablet by mouth once dailyMultivit With Min-Folic Acid (Centrum Adults) 12 mcg tablet,chewable Active 1 TAB PO Daily October 25, 2023 11:00pmStart: 22-86-8588knsb 1 tablet by mouth once daily Multivit With Min-Folic Acid (Centrum Adults) 12 mcg tablet,chewable Active 1 TAB PO Daily October 26, 2023 12:00ammultivit-min/ferrous fumarate (MULTI VITAMIN ORAL) (1 source)take 1 tablet by mouth once dailymultivit-min/ferrous fumarate (MULTI VITAMIN ORAL) Take 1 tablet by mouth once daily. 0 Activeondansetron (ZOFRAN- ODT) disintegrating tablet 4 mg (1 source)Start: 24-51-9952celyromnsfc (ZOFRAN-ODT) disintegrating tablet 4 mg pantoprazole (PROTONIX) 40 mg in sodium chloride (PF) 10 mL injection (1 source)Start: 57-22-197806 mg, IntraVENous, EVERY 12 HOURS, First dose on Wed01/02/22 at 2300 Reconstitute with 10 mL 0.9 %sodium chloride and administer over at least 2 minutes.PARoxetine hydrochloride 40 mg oral tablet (20 sources)Serotonin Reuptake InhibitorStart: 08-11-2024 End: 06-76-7930fsiluqgjue 40 mg Tab Refills(s) 0 Start Date: 04/25/25 Status: Ordered Medication Dispense Status: Completed Total Allowed Fills: 1 Fills Dispensed: 0Start: 02-15-2024 End: 65-17-3090zuyc 1 tablet by mouth once daily in the morningPARoxetine (Paxil) 40 MG tablet Indications: Generalized anxiety disorder TAKE 1 TABLET BY MOUTH EVERY DAY IN THE MORNING 90 tablet 3 08/11/2024 ActiveStart: 04-28-2023 End: 92-64-1533rvfe 1 tablet by mouth once dailyParoxetine Hcl 30 mg Tablet Discontinued 30 MG PO Daily 30 30 0 May 07, 2023 12:00am February 15, 2024 10:09amStart: 32-97-0267gllg 30 mg by mouth once daily in the mixuopv75 mg, Oral, EVERY MORNING, First dose on Wed01/05/22 at 0900, Until Discontinued Probiotic Product (PROBIOTIC-10 PO) (1 source)take 1 capsule by mouth once dailyProbiotic Product (PROBIOTIC-10 PO) Take 1 capsule by mouth daily 0 Untvzb0421 ml sodium chloride 9 mg/ml injection (4 [...] or less into rate field of order.Start: 66-59-0738rpvk 1 dose intravenously twice daily5-40 mL, IntraVENous, [...] Midline or Central Line = 20 mL/lumenStart: 88-62-6161fjax 5-40 mL intravenously once as needed5-40 mL, [...] oral tablet (20 sources)Aldosterone AntagonistStart: 10-13-2024 End: 62-06-4116cffa 1 tablet by mouth once dailyspironolactone (Aldactone) 25 MG tablet Indications: Chronic systolic CHF (congestive heart failure), NYHA class 2 (HCC) Take 1 tablet (25 mg) by mouth Daily 90 tablet 3 01/17/2025 Active Start: 08-31-2024 End: 63-31-0388Opiuflwbdiaerh 25 mg tablet Discontinued 12.5 MG PO Daily 15 30 2 August 31, 2024 1:00am October 13, 2024 9:58amStart: 07-16-2024 End: 17-81-2097oyph 1 tablet by mouth once dailySpironolactone 25 mg tablet Discontinued 25 MG PO Daily July 16, 2024 1:00am August 31, 2024 11:09am Start: 03-27-2024 End: 44-68-5572Djxvxlbbgdfgpb 25 mg tablet Discontinued 12.5 MG PO Every morning May 16, 2024 1:00am June 16, 2024 7:21pmStart: 03-27-2024 End: 56-62-8859idih 12.5 mg by mouth once daily in the morningSpironolactone Active 12.5 MG PO Every morning May 16, 2024 12:00amStart: 02-05-2024 End: 35-22-1070kfmw 1 tablet by mouth once dailySpironolactone 25 mg Tablet Discontinued 25 MG PO Daily 90 90 0 February 08, 2024 12:00am March 27, 2024 11:44amtamsulosin hydrochloride 0.4 mg oral capsule (20 sources)alpha-Adrenergic BlockerStart: 15-51-8110gxry 1 capsule by mouth once dailyTamsulosin (Flomax) 0.4 mg capsule Active 0.4 MG PO Daily May 09, 2025 12:00am Complies with drug therapyStart: 84-95-6121kstv 1 capsule by mouth every twenty-four hours at bedtimetamsulosin (Flomax) 0.4 MG 24 hr capsule Take 1 capsule by mouth at bedtime 05/16/2024 ActiveStart: 04-28-2023 End: 94-26-7215fzzt 1 capsule by mouth once dailyTamsulosin 0.4 mg Capsule Discontinued 0.4 MG PO Daily 30 30 0 May 07, 2023 12:00am May 16, 2024 1:54pmVitamin D (2 sources)Start: 30-09-6214xnvo 1 dose by mouth every weekVitamin D International_Unit, Oral, qWeek, Refills(s) 0 Start Date: 04/25/25 Status: Ordered Medication Dispense Status: Completed Total Allowed Fills: 1 Fills Dispensed: 0Start: 81-75-5721Lqisfej D International_Unit, Oral, qWeek, Refills(s) 0 Start Date: 04/25/25 Status: Ordered Repeatnumber: 1Vitamin D3 [id number] UNIT/GM (4 sources)Vitamin D3 [id number] UNIT/GM as directed Active Completed/Discontinued Medications MedicationDrug Class(es)DatesSig (Normalized)Sig (Original)acetaminophen 500 mg oral tablet (20 sources)Start: 05-03-2023 End: 66-26-9576ahdw 1 tablet by mouth every six hoursAcetaminophen 500 mg Tablet Discontinued 500 MG PO Every 6 hours 90 0 May 07, 2023 12:00am August 31, 2023 3:53pmStart: 05-03-2023 End: 74-57-7670xgib 1-3 tablets by mouth every four hours as needed for pain Acetaminophen (Tylenol) 325 mg Tablet Discontinued 650 MG PO Q4H as needed for Pain Scale 1 - 3 or fever 0 0 May 03, 2023 12:00am May 03, 2023 5:10pmStart: 05-03-2023 End: 37-72-6738rngs 2 tablets by mouth every four hoursAcetaminophen (Tylenol) 325 mg Tablet Discontinued 650 MG PO Q4H 0 May 02, 2023 11:00pm May 03, 2023 4:10pmStart: 00-13-0166wktovbgoocnfq (TYLENOL) tablet 1,000 mg Acetaminophen Extra Strength 500 MG tablet Daily. Activeacetaminophen 325 mg / HYDROcodone bitartrate 5 mg oral tablet (20 sources)Opioid AgonistStart: 05-03-2023 End: 38-98-0130modg 1 tablet by mouth every four hours [...] 4-6 hrs for 7 days ROSEANN # [id number] Activetake 1 tablet by mouth every six hoursHYDROcodone-Acetaminophen 5-325 MG 1 tablet as needed Orally every 6 hrs Activealuminum hydroxide 40 mg/ml / magnesium hydroxide 40 mg/ml / simethicone 4 mg/ml oral suspension (20 sources)Start: 05-03-2023 End: 27-23-4231chfz 1 mL by mouth every four hours as neededAlum-Mag Hydroxide- Simeth (Mag-Al Plus) 200-200-20 mg/5 mL Suspension Discontinued 30 ML PO Q4H as needed for Epigastric distress (Non-Card) 0 0 May 03, 2023 12:00am May 03, 2023 5:10pmamoxicillin 875 mg / clavulanate 125 mg oral tablet (2 sources)Penicillin-class AntibacterialStart: 04-17-2024 End: 48-97-0115fkgt 1 tablet by mouth in the morningamoxicillin-clavulanate (Augmentin) 875-125 MG tablet Indications: Bronchitis Take 1 tablet (875 mg) by mouth in the morning and 1 tablet (875 mg) before bedtime. Do all this for 5 days. 14 tablet 04/17/2024 04/22/2024 Expiredascorbic acid 500 mg oral tablet (20 sources)Vitamin CStart: 05-03-2023 End: 11-44-4386zgvm 1 tablet by mouth once dailyAscorbic Acid (Vitamin C) (Vitamin C) 500 mg Tablet Discontinued 500 MG PO Daily 30 0 April 12:00am September 05, 2023 3:28pm End: 12-08-1391lrqy 1 tablet by mouth once dailyascorbic acid (Vitamin C) 100 mg tablet Take 1 tablet (100 mg) by mouth once daily. 0 08/16/2023 Discontinued (Therapy completed)bisacodyl 10 mg rectal suppository (20 sources)Stimulant LaxativeStart: 05-03-2023 End: 99-60-0348Hnekdaqkp 10 mg Suppository Discontinued 10 MG PA Daily as needed for Constipation 0 0 May 03, 2023 12:00am May 03, 2023 5:10pmStart: 05-03-2023 End: 22-77-3198arhg 2 tablets by mouth once daily as needed for constipation Bisacodyl 5 mg Tablet,Delayed Release (Dr/Ec) Discontinued 10 MG PO Daily as needed for Constipation 0 0 May 03, 2023 12:00am May 03, 2023 5:10pm Start: 05-03-2023 End: 34-69-4211jybp 10 mg by mouth once dailyBisacodyl Discontinued 10 MG PO Daily 0 May 02, 2023 11:00pm May 03, 2023 4:10pmStart: 01-02-2022 take 10 mg rectal route once daily as ixcbiw01 mg, Rectal, DAILY PRN, Starting on Wed01/02/22 at 2231, Until Discontinued, Constipation First line therapy for constipationbismuth subsalicylate 17.5 mg/ml oral suspension (20 sources)BismuthStart: 09-05-2023 End: 70-82-8743tymy 300 mg by mouth four times dailyBismuth Subsalicylate (Stomach Relief) 262 mg/15 mL Suspension Discontinued 300 MG PO Four times daily 824.429 12 0 September 054 1:00am October 21, 2023 8:40amcalcium carbonate 1250 mg / cholecalciferol 200 unt oral tablet (6 sources)Vitamin DStart: 05-03-2023 End: 76-24-4613bbjk 1 tablet by mouth once at mealtimeCalcium Carbonate-Vitamin D3 (Oyster Shell Calcium-Vit D3) 500 mg-5 mcg (200 unit) Tablet Discontinued 1 TAB PO 3x/Day with meals May 07, 2023 12:00am August 31, 2023 4:56pmCalcium Carbonate-Vitamin D3 (Oyster Shell Calcium-Vit D3) 500 mg-5 mcg (200 unit) Tablet (20 sources)Start: 05-07-2023 End: 37-60-2915orfj 1 tablet by mouth once at mealtimeCalcium Carbonate-Vitamin D3 (Oyster Shell Calcium-Vit D3) 500 mg-5 mcg (200 unit) Tablet Discontinued 1 TAB PO 3x/Day with meals May 06, 2023 11:00pm August 31, 2023 3:56pmStart: 05-07-2023 End: 16-91-1724zfzh 1 tablet by mouth once at mealtimeCalcium Carbonate-Vitamin D3 (Oyster Shell Calcium-Vit D3) 500 mg-5 mcg (200 unit) Tablet Discontinued 1 TAB PO 3x/Day with meals May 07, 2023 12:00am August 31, 2023 4:56pmStart: 10-58-9105drpt 1 tablet by mouth once at mealtimeCalcium Carbonate- Vitamin D3 (Oyster Shell Calcium-Vit D3) 500 mg-5 mcg (200 unit) Tablet Active 1 TAB PO 3x/Day with meals May 06, 2023 11:00pmStart: 94-49-9030qwuc 1 tablet by mouth once at mealtimeCalcium Carbonate-Vitamin D3 (Oyster Shell Calcium-Vit D3) 500 mg-5 mcg (200 unit) Tablet Active 1 TAB PO 3x/Day with meals May 07, 2023 12:00amStart: 05-03-2023 End: 92-32-3506iqge 1 tablet by mouth once at mealtimeCalcium Carbonate-Vitamin D3 (Oyster Shell Calcium-Vit D3) 500 mg-5 mcg (200 unit) Tablet Discontinued 1 TAB PO 3x/Day with meals 0 May 02, 2023 11:00pm May 07, 2023 1:27pm Start: 05-03-2023 End: 43-92-1690ajnp 1 tablet by mouth once at mealtimeCalcium Carbonate-Vitamin D3 (Oyster Shell Calcium-Vit D3) 500 mg-5 mcg (200 unit) Tablet Discontinued 1 TAB PO 3x/Day with meals 0 May 03, 2023 12:00am May 07, 2023 2:27pm Start: 73-55-7907elxy 1 tablet by mouth once at mealtimeCalcium Carbonate- Vitamin D3 (Oyster Shell Calcium-Vit D3) 500 mg-5 mcg (200 unit) Tablet Active 1 TAB PO 3x/Day with meals 0 May 03, 2023 12:00amcalcium chloride 0.0014 meq/ml / potassium chloride 0.004 meq/ml / sodium chloride 0.103 meq/ml / sodium lactate 0.028 meq/ml injectable solution (1 source)Start: 01-02-2022 End: 08-82-2950OkznlUDXdkn, at 125 mL/hr, CONTINUOUS, Starting on Wed01/02/22 at 2300clopidogrel 75 mg oral tablet (20 sources)P2Y12 Platelet InhibitorStart: 08-16-2023 End: 09-22-2465lboh 1 tablet by mouth once dailyClopidogrel 75 mg tablet Discontinued 75 MG PO Daily August 31, 2023 1:00am February 08, 2024 1:25pm collagenase Clostridium histolyticum (4 sources)Start: 07-54-9859Ghdxsoz Apr, 0.01 mgcyclobenzaprine hydrochloride 5 mg oral tablet (20 sources)Muscle RelaxantStart: 05-07-2023 End: 24-06-9389caaa 1 tablet by mouth every eight hours [...] (20 sources)Sodium-Glucose Cotransporter 2 InhibitorStart: 08-30-2024 End: 80-11-6052qxon 1 tablet by mouth once dailyDapagliflozin Propanediol (Farxiga) 10 mg tablet Discontinued 10 MG PO Daily August 31, 2024 1:00am April 06, 2025 9:44amempagliflozin 10 mg oral tablet (20 sources)Sodium-Glucose Cotransporter 2 InhibitorStart: 03-27-2024 End: 03-11-5190ucdt 1 tablet by mouth once dailyEmpagliflozin (Jardiance) 10 mg tablet Discontinued 10 MG PO Daily 30 30 2 March 27, 2024 12:00am May 16, 2024 1:44pm0.4 ml enoxaparin sodium 100 mg/ml prefilled syringe (20 sources)Low Molecular Weight HeparinStart: 05-03-2023 End: 36-45-2035Woyagtiafr (Lovenox) 40 mg/0.4 mL Syringe Discontinued 40 MG SUBCUT DAILY@1000 0 15 0 April 12:00am May 07, 2023 2:27pm Start: 96-29-5549epdmpyunfg (LOVENOX) injection 40 mgferrous sulfate 324 mg delayed release oral tablet (20 sources)Start: 05-07-2023 End: 40-16-7316fkun 1 tablet by mouth once dailyFerrous Sulfate 324 mg (65 mg iron) Tablet,Delayed Release (Dr/Ec) Discontinued 324 MG PO Daily 30 0 May 07, 2023 12:00am August 31, 2023 4:51pmtake 1 tablet by mouth once daily at mealtimeferrous sulfate, 325 mg ferrous sulfate, (iron) tablet Take 1 tablet (325 mg) by mouth once daily with a meal. 0 Ulyhbc013 ml fluconazole 2 mg/ml injection (1 source)Azole AntifungalStart: 01-02-2022 End: 24-31-3525fdcqaeptrwj (DIFLUCAN) 400 mg IVPBfurosemide 20 mg oral tablet (20 sources)Loop DiureticStart: 08-09-2024 End: 02-11-9976bgie 1 tablet by mouth once daily in the morningFurosemide 20 mg tablet Discontinued 0 .ROUTE .COMPLEX 90 1 August 09, 2024 12:46pm August 31, 2024 11:10am TAKE 1 TABLET BY MOUTH EVERY DAY AT 8 AMStart: 07-17-2024 End: 73-25-7207ayul 1 tablet by mouth once dailyFurosemide 20 mg Tablet Discontinued 20 MG PO Daily at 0800 30 1 July 17, 2024 1:00am August 09, 2024 12:47pmStart: 02-15-2024 End: 29-33-7461speh 1 tablet by mouth once dailyFurosemide (Lasix) 20 mg tablet Discontinued 20 MG PO Daily February 15, 2024 12:00am February 15, 2024 10:58am Start: 08-31-2023 End: 27-34-3591Aemzneywfq Discontinued MG TABLET August 31, 2023 12:00am September 05, 2023 2:28pmStart: 08-16-2023 End: 73-59-6790wnai 1 tablet by mouth once daily as neededFurosemide 20 mg tablet Discontinued 20 MG PO Daily as needed for as instructed 0 90 0 September 03, 2023 11:53am October 21, 2023 8:40am End: 68-52-5836vqfc 10 mg by mouth once dailyfurosemide (Lasix) 20 MG tablet Take 10 mg by mouth Daily 08/30/2024 Discontinued (Therapy completed)Insulin Aspart U-100 (Novolog Flexpen U-100 Insulin) 100 unit/mL (3 mL) insulin pen (20 sources)Start: 05-03-2023 End: 10-65-7809Imlehgp Aspart U-100 (Novolog Flexpen U-100 Insulin) 100 unit/mL (3 mL) insulin pen Discontinued 0 units SUBCUT Before meals and at bedtime May 03, 2023 5:09pm May 07, 2023 2:27pm Please contact the information source for Protocol details.Start: 05-03-2023 End: 58-95-9362Wszoxwd Aspart U-100 (Novolog Flexpen U-100 Insulin) 100 unit/mL (3 mL) insulin pen Discontinued 0 units SUBCUT Before meals and at bedtime May 03, 2023 4:09pm May 07, 2023 1:27pm Please contact the information source for Protocol details.Start: 05-03-2023 End: 11-74-5881Lfrjjqw Aspart U-100 (Novolog Flexpen U-100 Insulin) 100 unit/mL (3 mL) insulin pen Discontinued 0 units SUBCUT Before meals and at bedtime May 03, 2023 4:09pm May 07, 2023 1:27pmStart: 05-03-2023 End: 93-51-0584Jkprhki Aspart U-100 (Novolog Flexpen U-100 Insulin) 100 unit/mL (3 mL) insulin pen Discontinued 0 units SUBCUT Before meals and at bedtime May 03, 2023 5:09pm May 07, 2023 2:27pmStart: 04-28-2023 End: 89-90-1430boskng 8 [IU] by subcutaneous injection once daily before dinner Insulin Aspart U-100 (Novolog Flexpen U-100 Insulin) 100 unit/mL (3 mL) insulin pen Discontinued 8 UNIT SUBCUT once daily before dinner April 27, 2023 11:00pm May 03, 2023 4:10pmStart: 04-28-2023 End: 09-11-7844bhuimd 5 [IU] by subcutaneous injection after breakfastInsulin Aspart U-100 (Novolog Flexpen U-100 Insulin) 100 unit/mL (3 mL) insulin pen Discontinued 5 UNIT SUBCUT After breakfast and lunch April 27, 2023 11:00pm May 03, 2023 4:10pmStart: 04-28-2023 End: 30-18-5955yjzltb 8 [IU] by subcutaneous injection once daily before dinner Insulin Aspart U-100 (Novolog Flexpen U-100 Insulin) 100 unit/mL (3 mL) insulin pen Discontinued 8 UNIT SUBCUT once daily before dinner April 28, 2023 12:00am May 03, 2023 5:10pmStart: 04-28-2023 End: 95-43-2243axhfix 5 [IU] by subcutaneous injection after breakfastInsulin Aspart U-100 (Novolog Flexpen U-100 Insulin) 100 unit/mL (3 mL) insulin pen Discontinued 5 UNIT SUBCUT After breakfast and lunch April 28, 2023 12:00am May 03, 2023 5:10pmStart: 26-74-1732vsopxi 8 [IU] by subcutaneous injection once daily before dinnerInsulin Aspart U-100 (Novolog Flexpen U-100 Insulin) 100 unit/mL (3 mL) insulin pen Active 8 UNIT SUBCUT once daily before dinner April 28, 2023 12:00amStart: 90-41-0344xdvvas 5 [IU] by subcutaneous injection after breakfastInsulin Aspart U-100 (Novolog Flexpen U-100 Insulin) 100 unit/mL (3 mL) insulin pen Active 5 UNIT SUBCUT After breakfast and lunch April 28, 2023 12:00amInsulin Aspart U-100 (Novolog U-100 Insulin Aspart) 100 unit/mL solution (20 sources)Start: 08-31-2023 End: 42-05-4328Wrabrpy Aspart U-100 (Novolog U-100 Insulin Aspart) 100 unit/mL solution Discontinued 50 UNIT CNTSUBQINF Daily August 31, 2023 12:00am September 05, 2023 2:28pm per insulin pumpStart: 08-31-2023 End: 23-62-6331Mpuuvua Aspart U-100 (Novolog U-100 Insulin Aspart) 100 unit/mL solution Discontinued 50 UNIT CNTSUBQINF Daily August 31, 2023 1:00am September 05, 2023 3:28pm per insulin pumpInsulin Disposable Pump (Omnipod DASH PDM, Gen 4,) kit (20 sources)Start: 05-30-2024 End: 02-59-7110Qodfjto Disposable Pump (Omnipod DASH PDM, Gen 4,) kit 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) Basal: 12A 0.3, 7A 0.4, 9P 0.5, 10 units breakfast, 8 units with lunch, 7 dinner, ISF: 75 1 each 05/30/2024 05/02/2025 Discontinued (Therapy completed) Start: 84-10-9507Efukthr Disposable Pump (Omnipod DASH PDM, Gen 4,) kit 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) Basal: 12A 0.3, 7A 0.4, 9P 0.5, 10 units breakfast, 8 units with lunch, 7 dinner, ISF: 75 1 each 05/30/2024 ActiveStart: 60-52-5920Jjwggnw Disposable Pump (Omnipod DASH PDM, Gen 4,) kit Indications: Diabetes mellitus secondary to p ancreatic insufficiency (CMS/HCC) Basal: 12A 0.3, 7A 0.4, 9P 0.5, 10 units breakfast, 8 units with lunch, 7 dinner, ISF: 75 1 each 05/30/2024 ActiveStart: 02-04-2023 End: 25-11-4429Cyncqqd Disposable Pump (Omnipod DASH PDM, Gen 4,) kit Indications: 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) Basal: 12A 0.3, 7A 0.4, 9P 0.5, 6 units breakfast/lunch, 7 dinner, ISF: 75 1 each 02/04/2023 05/30/2024 Discontinued (Reorder)Start: 20-80-4358Mrqlxtu Disposable Pump (Omnipod DASH PDM, Gen 4,) kit Indications: 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) Basal: 12A 0.3, 7A 0.4, 9P 0.5, 6 units breakfast/lunch, 7 dinner, ISF: 75 1 each 02/04/2023 Activeinsulin regular (HUMULIN R;NOVOLIN R) 100 Units in sodium chloride 0.9 % 100 mL infusion (1 source)Start: 01-02-2022 End: 63-17-8484cluzkds regular (HUMULIN R;NOVOLIN R) 100 Units in sodium chloride 0.9 % 100 mL infusioniohexol (OMNIPAQUE 240) injection 100 mL (1 source)Start: 01-05-2022 End: 50-13-7411hgyqvvr (OMNIPAQUE 240) injection 100 mL10 ml iron sucrose 20 mg/ml injection (20 sources)Parenteral Iron ReplacementStart: 02-18-2024 End: 50-55-7664Emee Sucrose (Venofer) 200 mg iron/10 mL solution Discontinued 100 MG IV 3 Times a week 0 February 18, 2024 12:00am March 15, 2024 10:49am administer over 30 minslactobacillus acidophilus [id number] unt oral capsule (20 sources)Start: 08-31-2023 End: 59-25-7993xgch 10 capsules by mouth once dailyLactobacillus Acidophilus (Probacap) 10 billion cell capsule Discontinued 100 MMU CELLS PO Daily August 31, 2023 1:00am September 05, 2023 3:28pm End: 86-56-9121Ydicnqmvtuuzi (Probiotic Acidophilus) capsule 1 capsule 1 (one) time each day at the same time. 05/02/2025 Discontinued (Therapy completed) lidocaine hydrochloride 10 mg/ml injectable solution (20 sources)Antiarrhythmic, Amide Local AnestheticStart: 05-03-2023 End: 53-08-9908Qjvejjrot Hcl (Xylocaine) 10 mg/mL (1 %) Solution Discontinued 0.1 ML INTRADERMA Pre-Op as needed for Venipuncture x 1 Dose 0 0 May 03, 2023 12:00am May 03, 2023 5:10pmlisinopril 2.5 mg oral tablet (20 sources)Angiotensin Converting Enzyme InhibitorStart: 03-27-2024 End: 43-47-2920nsly 1 tablet by mouth once daily in the morningLisinopril 2.5 mg tablet Discontinued 2.5 MG PO Every morning May 16, 2024 1:00am April 06, 2025 9:44amloratadine 10 mg oral tablet (20 sources)Start: 10-26-2023 End: 52-26-4596zhqo 1 tablet by mouth once dailyloratadine (Claritin) 10 MG tablet Take 1 tablet by mouth Daily 10/26/2023 05/02/2025 Discontinuedtake 1 tablet by mouth every twenty-four hoursClaritin 10 MG 1 tablet Orally Once a day Activemagnesium hydroxide 80 mg/ml oral suspension (20 sources)Start: 05-03-2023 End: 44-18-6669agwi 1 mL by mouth twice daily as needed for constipation Magnesium Hydroxide (Milk Of Magnesia) 400 mg/5 mL Suspension Discontinued 30 ML PO Twice daily as needed for Constipation 0 0 May 03, 2023 12:00am May 07, 2023 2:27pmStart: 05-03-2023 End: 91-70-3005mjac 1 mL by mouth twice daily as needed for constipation Magnesium Hydroxide (Milk Of Magnesia) 400 mg/5 mL Suspension Discontinued 30 ML PO Twice daily as needed for Constipation 0 May 03, 2023 12:00am May 07, 2023 2:27pmStart: 05-03-2023 End: 12-12-7597isiv 1 mL by mouth twice daily as needed for constipation Magnesium Hydroxide (Milk Of Magnesia) 400 mg/5 mL Suspension Discontinued 30 ML PO Twice daily as needed for Constipation 0 May 02, 2023 11:00pm May 07, 2023 1:27pmStart: 05-03-2023 End: 00-82-3084etlh 1 mL by mouth twice dailyMagnesium Hydroxide (Milk Of Magnesia) 400 mg/5 mL Suspension Discontinued 30 ML PO Twice daily 0 May 02, 2023 11:00pm May 07, 2023 1:27pmStart: 05-03-2023 End: 40-23-7166nvxb 1 mL by mouth twice dailyMagnesium Hydroxide (Milk Of Magnesia) 400 mg/5 mL Suspension Discontinued 30 ML PO Twice daily 0 May 03, 2023 12:00am May 07, 2023 2:27pmStart: 98-74-4359nqkv 1 mL by mouth twice dailyMagnesium Hydroxide (Milk Of Magnesia) 400 mg/5 mL Suspension Active 30 ML PO Twice daily 0 2022 12:00ammagnesium oxide 400 mg oral tablet (1 source)Start: 01-07-2022 End: 52-90-5435xgdnwgitv oxide (MAG-OX) tablet 400 mg50 ml magnesium sulfate 40 mg/ml injection (1 source)Start: 01-05-2022 End: 82-76-3498krpajkayh sulfate 2000 mg in 50 mL IVPB premixmethocarbamol (ROBAXIN) 750 mg in dextrose 5 % 100 mL IVPB (1 source)Start: 01-02-2022 End: 96-59-9817385 mg, IntraVENous, at 200 mL/hr, Administer over 30 Minutes, EVERY 6 HOURS, First dose on Wed01/02/22 at 2300metroNIDAZOLE 500 mg oral tablet (20 sources)Nitroimidazole AntimicrobialStart: 09-05-2023 End: 62-44-0286fqhz 1 tablet by mouth three times dailyMetronidazole 500 mg Tablet Discontinued 500 MG PO Three times daily 36 12 0 September 05, 2023 1:0 0am October 21, 2023 8:41amMultiple Vitamins-Minerals (Centrum Silver 50+Men) tablet (20 sources) End: 99-30-3479zdck 1 tablet by mouth once dailyMultiple Vitamins-Minerals (Centrum Silver 50+Men) tablet Take 1 tablet by mouth 1 (one) time each day. 05/02/2025 Discontinuedtake 1 tablet by mouth once dailyMultiple Vitamins- Minerals (Centrum Silver 50+Men) tablet Take 1 tablet by mouth 1 (one) time each day. DqdcmgZbbylydsygej-Pynzyzah-Piyunc (Multivitamin 50 Plus) tablet (20 sources)Start: 08-31-2023 End: 08-44-9680Rivgtetxdwfe-Minerals-Lutein (Multivitamin 50 Plus) tablet Discontinued 1 TAB PO Daily August 31, 2023 1:00am February 08, 2024 1:25pm On Hold: duplicateStart: 08-31-2023 End: 20-86-7459Aavsqvvyxfon-Minerals-Lutein (Multivitamin 50 Plus) tablet Discontinued 1 TAB PO Daily August 31, 2023 12:00am February 08, 2024 12:25pm On Hold: duplicateStart: 08-31-2023 End: 72-36-4394Ygsinjkcxcfj-Minerals-Lutein (Multivitamin 50 Plus) tablet Discontinued 1 TAB PO Daily August 31, 2023 12:00am February 08, 2024 12:25pm Start: 08-31-2023 End: 49-35-4305Bcdncorsblyt-Minerals-Lutein (Multivitamin 50 Plus) tablet Discontinued 1 TAB PO Daily August 31, 2023 1:00am February 08, 2024 1:25pm Start: 74-35-4890Gylmxkjlmcpw-Minerals-Lutein (Multivitamin 50 Plus) tablet Active 1 TAB PO Daily August 31, 2023 1:00amnitroglycerin 0.4 mg sublingual tablet (20 sources)Nitrate VasodilatorStart: 05-03-2023 End: 75-70-3073Yejkihngopcsp 0.4 mg tablet, sublingual Discontinued 0.4 MG SUBLINGUAL Q5M as needed for chest pain30 2 July 16, 2023 1:00am September 05, 2023 3:28pm until response; do not exceed 3 doses per eventNitroglycerin 0.4 MG as directed Sublingual Activeomeprazole 20 mg delayed release oral capsule (20 sources)Proton Pump InhibitorStart: 05-16-2024 End: 14-27-7053sxpf 1 capsule by mouth twice dailyOmeprazole 20 mg capsule,delayed release(DR/EC) Discontinued 20 MG PO Twice daily May 16, 2024 1:00am August 31, 2024 11:10amStart: 04-05-2024 End: 97-45-5802Yhotcgvtue Magnesium 20 mg tablet Take 20 mg by mouth. 04/05/2024 04/05/2025 Activepantoprazole 40 mg oral granules (20 sources)Proton Pump InhibitorStart: 02-08-2024 End: 40-34-7183farn 40 mg by mouth twice dailyPantoprazole (Protonix) [address] for susp in packet Discontinued 40 MG PO Twice daily 180 90 0 February 08, 2024 12:00am February 15, 2024 10:08amStart: 11-11-2023 End: 46-53-6923wred 1 tablet by mouth once daily, then take 1 tablet by mouth once dailyPantoprazole (Protonix) 40 mg tablet,delayed release (DR/EC) Discontinued 40 MG PO Daily 180 90 0 November 11, 2023 1:22pm February 08, 2024 1:25pm 40 mg p.o. twice daily x 2 weeks, followed by 40 mg p.o. daily. Please dispense accordingly.Start: 09-03-2023 End: 23-25-6977ywdk 1 tablet by mouth twice daily, then take 1 tablet by mouth once dailyPantoprazole (Protonix) 40 mg tablet,delayed release (DR/EC) Discontinued 40 MG PO Twice daily 180 90 0 February 08, 2024 1:22pm May 16, 2024 1:54pm 40 mg p.o. twice daily x 2 weeks, followed by 40 mg p.o. daily. Please dispense accordingly.Start: 10-14-5906rxyq 1 tablet by mouth once daily before breakfastpantoprazole (PROTONIX) 40 MG tablet Take 1 tablet by mouth every morning (before breakfast) 90 tablet 1 01/07/2022 ActiveStart: 01-07-2022 take 1 tablet by mouth once daily before breakfastpantoprazole (PROTONIX) 40 MG tablet Take 1 tablet by mouth every morning (before breakfast) 90 tablet 1 01/07/2022 Active End: 76-80-6107fmwy 1 tablet by mouth before mealtimepantoprazole (ProtoNix) 40 MG EC tablet Take 40 mg by mouth in the morning. Take before meals. Do not crush, chew, or split. 05/02/2025 Discontinuedpiperacillin-tazobactam (ZOSYN) 3,375 mg in dextrose 5 % 50 mL IVPB (mini-bag) (2 sources)Start: 01-02-2022 End: 32-67-2004bmykzcxlloom-tazobactam (ZOSYN) 3,375 mg in dextrose 5 % 50 mL IVPB (mini-bag)Start: 01-02-2022 End: 28-56-6559xfisyjgmnizp-tazobactam (ZOSYN) 3,375 mg in dextrose 5 % 50 mL IVPB (mini-bag)potassium bicarbonate 20 meq effervescent oral tablet (1 source)Start: 01-07-2022 End: 70-26-8034bqwharghf bicarb-citric acid (EFFER-K) effervescent tablet 40 mEq microencapsulated potassium chloride 20 meq extended release oral tablet (20 sources)Start: 05-03-2023 End: 43-79-7275Ldsjejqix Chloride (Klor-Con M20) 20 mEq Tablet,Er Particles/Crystals Discontinued 40 MEQ PO STAT as needed for Hypokalemia 0 0 May 03, 2023 12:00am May 03, 2023 5:10pmStart: 01-06-2022 End: 66-83-8170xidirzehv chloride (KLOR-CON M) extended release tablet 40 mEq Start: 01-05-2022 End: 93-75-3614rcpjsmrix chloride 10 mEq/100 mL IVPB (Peripheral Line)potassium phosphate 155 mg / sodium phosphate, dibasic 852 mg / sodium phosphate, monobasic 130 mg oral tablet (1 source)Start: 01-07-2022 End: 50-28-4774ykhfzmfnvh (K PHOS NEUTRAL) tablet 1 tabletpotassium phosphate 15 mmol in dextrose 5 % 250 mL IVPB (1 source)Start: 01-05-2022 End: 09-14-5907nushqbxcr phosphate 15 mmol in dextrose 5 % 250 mL IVPBsacubitril 24 mg / valsartan 26 mg oral tablet (20 sources)Angiotensin 2 Receptor BlockerStart: 05-16-2024 End: 84-64-1749sjxc 1 tablet by mouth twice dailySacubitril-Valsartan (Entresto) 24-26 mg tablet Discontinued 1 TAB PO Twice daily May 16, 2024 1:00am June 16, 2024 7:21pmStart: 02-08-2024 End: 03-32-5851szek 1 tablet by mouth twice dailySacubitril-Valsartan (Entresto) 24-26 mg Tablet Discontinued 1 TAB PO Twice daily 180 90 0 February 08, 2024 12:00am March 27, 2024 11:05am On Hold: hypotension End: 25-09-1930vqdy 1 tablet by mouth in the morningsacubitril-valsartan (Entresto) 24-26 MG tablet Take 1 tablet by mouth in the morning and 1 tablet b efore bedtime. 04/17/2024 Discontinued (Therapy completed)Sennosides (Senna Laxative) 8.6 mg Tablet (20 sources)Start: 05-03-2023 End: 95-58-5994jaoz 2 tablets by mouth at bedtime as needed for constipation Sennosides (Senna Laxative) 8.6 mg Tablet Discontinued 2 TAB PO Bedtime as needed for constipation 0 May 03, 2023 12:00am May 03, 2023 5:10pm Start: 05-03-2023 End: 22-20-5157hlno 2 tablets by mouth at bedtime as needed for constipation Sennosides (Senna Laxative) 8.6 mg Tablet Discontinued 2 TAB PO Bedtime as needed for constipation 0 May 02, 2023 11:00pm May 03, 2023 4:10pm Start: 05-03-2023 End: 80-15-4410riyq 2 tablets by mouth at bedtimeSennosides (Senna Laxative) 8.6 mg Tablet Discontinued 2 TAB PO Bedtime 0 May 02, 2023 11:00pm May 03, 2023 4:10pmStart: 05-03-2023 End: 76-56-5037moyl 2 tablets by mouth at bedtimeSennosides (Senna Laxative) 8.6 mg Tablet Discontinued 2 TAB PO Bedtime 0 May 03, 2023 12:00am May 03, 2023 5:10pmStart: 84-51-8413ratu 2 tablets by mouth at bedtimeSennosides (Senna Laxative) 8.6 mg Tablet Active 2 TAB PO Bedtime 0 May 03, 2023 12:00amsennosides, senior living 8.6 mg oral tablet (3 sources)Start: 05-03-2023 End: 12-89-9934nqzg 2 tablets by mouth at bedtime as needed for constipation Sennosides (Senna Laxative) 8.6 mg Tablet Discontinued 2 TAB PO Bedtime as needed for constipation 0 0 May 03, 2023 12:00am May 03, 2023 5:10pm sucralfate 1000 mg oral tablet (20 sources)Aluminum ComplexStart: 02-08-2024 End: 19-43-9289osry 1 tablet by mouth every six hoursSucralfate 1 gram Tablet Discontinued 1 GM PO Every 6 hours 360 90 0 February 08, 2024 12:00am April 26, 2024 10:28amStart: 32-33-8621glnd 10 mL by mouth four times daily sucralfate (CARAFATE) 1 GM/10ML suspension Take 10 mLs by mouth 4 times daily 1200 mL 3 01/07/2022 ActiveStart: 49-06-4017hpdt 10 mL by mouth four times daily sucralfate (CARAFATE) 1 GM/10ML suspension Take 10 mLs by mouth 4 times daily 1200 mL 3 01/07/2022 ActiveStart: 49-17-5153ryyfetzowa (CARAFATE) 1 GM/10ML suspension 1 gtetracycline hydrochloride 500 mg oral capsule (20 sources)Tetracycline-class AntimicrobialStart: 09-06-2023 End: 16-13-3314gnfx 1 capsule by mouth four times dailyTetracycline 500 mg capsule Discontinued 500 MG PO Four times daily 112 0 September 06, 2023 1:00am October 21, 2023 8:42amStart: 09-05-2023 End: 64-45-7424opso 1 capsule by mouth four times dailyTetracycline 250 mg Capsule Discontinued 500 MG PO Four times daily 112 14 0 September 05, 2023 1:0 0am October 21, 2023 8:42amStart: 09-05-2023 End: 17-05-6495uhav 500 mg by mouth four times dailyTetracycline Discontinued 500 MG PO Four times daily 112 14 September 05, 2023 12:00am October 7:42amticagrelor 90 mg oral tablet (20 sources)Start: 07-16-2023 End: 90-08-8753rsjl 1 tablet by mouth twice dailyTicagrelor (Brilinta) 90 mg tablet Discontinued 90 MG PO Twice daily 180 3 July 16, 2023 1:00amFebruary 2023 3:28pmtriamcinolone acetonide 1 mg/ml topical cream (20 sources)CorticosteroidStart: 05-03-2023 End: 88-43-6123Ymppgjibrkcqf Acetonide 0.1 % Cream Discontinued 1 APPLIC TOPICAL Four times daily as needed for Irritation 15 0 May 07, 2023 12:00am October 28, 2023 10:38amStart: 48-93-3613Rzesnhy -40 mg Apr, 40 mg Triamcinolone Acetonide 0.1 % 1 application Externally Two times a Week Active Triamcinolone Acetonide 0.1 % 1 application Externally Two times a Week Active valsartan 80 mg oral tablet (20 sources)Angiotensin 2 Receptor BlockerStart: 10-28-2023 End: 89-11-7625dsqq 1 tablet by mouth once dailyValsartan 80 mg tablet Discontinued 80 MG PO Daily 90 90 1 October 28, 2023 12:00am February 08, 2024 1:25pmStart: 09-03-2023 End: 86-44-2918Mppbhzipk 160 mg Tablet Discontinued 80 MG PO Daily 30 30 0 September 03, 2023 11:53am October 2:46pmStart: 09-03-2023 End: 96-56-5463jxlv 80 mg by mouth once dailyValsartan Discontinued 80 MG PO Daily 30 30 September 03, 2023 10:53am October 28, 2023 1:46pmStart: 05-07-2023 End: 81-86-4311skxr 1 tablet by mouth once dailyValsartan 160 mg Tablet Discontinued 160 MG PO Daily 30 30 0 May 07, 2023 12:00am September 05, 2023 3:28pmStart: 05-03-2023 End: 27-61-2280ezcq 1 tablet by mouth once dailyValsartan 80 mg Tablet Discontinued 80 MG PO Daily 0 0 May 03, 2023 12:00am May 07, 2023 2:27pm Problems Active Problems Problem ClassificationProblemDateDocumented DateEpisodic/ChronicAcute and unspecified renal failure (2 sources)Acute renal failure syndromeOnset: 708846-63-4908ChwviijtZvllv myocardial infarction (20 sources)Myocardial infarction; Translations: [Non-ST elevation (NSTEMI) myocardial infarction]Onset: 067394-44-8493BygejiiLjsdhndeiqcoic/social admission (20 sources)Other reduced mobility; Translations: [Impaired mobility and activities of daily living]81-93-4984GgwxtzldAceoajg on above:Problem List clean-up per request of Phys. EHR CmteAnxiety disorders (20 sources)Mixed anxiety and depressive disorder; Translations: [Anxiety disorder, unspecified]Onset: 01-08-2023 Resolved: 916234-04-4974TjdzsqoQfouead dysrhythmias (20 sources)Paroxysmal ventricular tachycardia; 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]97-86-7830UhmxrzqFamobgp on above:Problem List clean-up per request of Phys. EHR CmteChronic kidney disease (2 sources)Chronic kidney diseaseOnset: 007220-25-2380EmabgwfTdhihgt obstructive pulmonary disease and bronchiectasis (15 sources)Acute exacerbation of chronic obstructive airways disease; Translations: [Chronic obstructive pulmonary disease with (acute) exacerbation] Onset: 418828-79-9548OytaguhRsvxkmf obstructive pulmonary disease and bronchiectasis (4 sources)Bronchitis; Translations: [Bronchitis, not specified as acute or chronic]83-13-7392ZqegjdclPljjagocyc disorders (20 sources)H/O: cardiac pacemaker in situ; Translations: [Presence of automatic (implantable) cardiac defibrillator]Onset: 804401-57-8867Qnfdnpc Congestive heart failure; nonhypertensive (20 sources)Acute on chronic systolic heart failure; Translations: [Acute on chronic systolic (congestive) heart failure]Onset: 891459-63-7583Eqeibrd Coronary atherosclerosis and other heart disease (20 sources)Double coronary vessel disease; Translations: [Atherosclerotic heart disease of [place] coronary artery without angina pectoris]Onset: 01-31-2019 79-20-0086UnthkwoQicicii on above:Problem List clean-up per request of Phys. EHR CmteCoronary atherosclerosis and other heart disease (20 sources)Patient post percutaneous transluminal coronary angioplasty; Translations: [Coronary angioplasty status]77-71-0155TllywthsDciekykhmn and other anemia (20 sources)Anemia; Translations: [Anemia, unspecified]10-51-7678KiuignzfNitmald on above:Problem List clean-up per request of Phys. EHR CmteOutside Source Comment: Comment on above: Problem List clean-up per request of Phys. EHR Cmte Deficiency and other anemia (3 sources)Anemia, unspecified; Translations: [Anemia, unspecified]05-08-2023 EpisodicDiabetes mellitus without complication (20 sources)Insulin pump present; Translations: [Presence of insulin pump (external) (internal)]Onset: 541264-68-8160KgddpopfIadtqxjgn of lipid metabolism (20 sources)Mixed hyperlipidemia; Translations: [Mixed hyperlipidemia]Onset: 413664-68-3409LphsvplKdcstzfydk disorders (20 sources)Lewis's esophagus; 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]59-00-1579VskhhueFfokqboba hypertension (20 sources)Hypertensive disorder; Translations: [Essential (primary) hypertension]Onset: 737222-53-3292DqiwmfzOiphgxnj of upper limb (1 source)Other fracture of upper end of left radius, initial encounter for closed fracture; Translations: [Other fracture of upper end of left radius, initial encounter for closed fracture]Onset: 26-75-2225YzybctkrQnpcnhvbcvrmcs ulcer (except hemorrhage) (20 sources)Perforation of stomach; Translations: [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]Onset: 01-06-2022 Resolved: 85-16-2709WixyjjsNnmpgre on above:previous rupture with repair.Outside Source Comment: previous rupture with repair.Gastroduodenal ulcer (except hemorrhage) (20 sources)Acute gastric ulcer with perforation; Translations: [Acute gastric ulcer with perforation]Onset: 68-40-7138NbnkiywtMnvzcqmrseueclkl hemorrhage (20 sources)Melena; Translations: [Melena]06-64-3262YpqkaqwgUdugktamjtgvv symptoms and ill-defined conditions (20 sources)Hematuria, unspecified; Translations: [Blood in urine]Onset: 06-05-2022 Resolved: 00-55-1399NxfboyylXdgix valve disorders (20 sources)Non-rheumatic mitral regurgitation ; Translations: [Nonrheumatic mitral (valve) insufficiency]Onset: 382583-87-1467UxnjmqiNnmxvnlpafq of prostate (20 sources)Benign prostatic hyperplasia; Translations: [Benign prostatic hyperplasia without lower urinary tract symptoms]Onset: ChronicHypertension with complications and secondary hypertension (2 sources)Hypertensive heart disease with congestive heart failure; Translations: [Hypertensive heart diseasewith heart failure]47-43-9553Odgfvkj Intestinal infection (20 sources)Infection caused by Helicobacter pylori; Translations: [Other specified bacterial intestinal infections]37-54-8549PurqjymjDhov disorders (20 sources)Moderate major depression, single episode; Translations: [Major depressive disorder, single episode, moderate]Onset: hronic Nonspecific chest pain (1 source)Chest pain, unspecified; Translations: [Chest pain, unspecified]Onset: 77-76-4615XqegfksoPskvppmxrcc deficiencies (20 sources)Deficiency of macronutrients; Translations: [Mild protein-calorie malnutrition]21-93-1022CnhllvxZazhzehvwhdp (20 sources)Osteoporosis; Translations: [Age-related osteoporosis without current pathological fracture]69-25-3641VuktdxuOyoqyai on above:Problem List clean-up per request of Phys. EHR CmteOutside Source Comment: Comment on above: Problem List clean-up per request of Phys. EHR CmteOther aftercare (2 sources)Post-discharge follow-up; Translations: [Encounter for follow-up examination after completed treatment for conditions other than malignant neoplasm]43-78-7039RzgaqlesIvvue aftercare (2 sources)Encounter for follow-up examination after completed treatment for conditions other than malignant neoplasm; Translations: [Unspecified follow-up examination]33-06-6077GdtxcoetUmytb and ill-defined heart disease (20 sources)Left ventricular systolic dysfunction; Translations: [Other ill- defined heart diseases]95-04-0356SbirnfaQoekxon on above:Problem List clean-up per request of Phys. EHR CmteOther and ill-defined heart disease (7 sources)Other ill-defined heart diseases; Translations: [Heart disease, unspecified]94-23-1981RaeobjiYedkw and ill-defined heart disease (3 sources)Mild left ventricular systolic dysfunction; Translations: [Other ill- defined heart diseases]27-39-8303CuzfognKvzhvsd on above:Problem List clean-up per request of Phys. EHR CmteOther circulatory disease (4 sources)Orthostatic hypotension; Translations: [Orthostatic hypotension] 68-32-7096DhzufobePqngp connective tissue disease (4 sources)Dupuytren contracture of right palm; Translations: [Palmar fascial fibromatosis [Dupuytren]]EpisodicOther diseases of kidney and ureters (3 sources)Hydronephrosis; Translations: [Unspecified hydronephrosis]Onset: 13-44-0815QqdkcnbmOudgq fractures (20 sources)Fracture of spinous process of cervical vertebra; Translations: [Fracture of neck, unspecified, initial encounter]21-81-9609UnlyrwlzKltqj fractures (20 sources)Fracture of cervical spine; Translations: [Fracture of neck, unspecified, initial encounter]47-84-2987ZncyjbyuWvlot fractures (20 sources)Closed fracture of vertebral column; Translations: [Closed fracture of vertebra]11-07-2786ObzrntqgZivgs fractures (20 sources)Closed fracture of fifth cervical vertebra; Translations: [Unspecified displaced fracture of fifth cervical vertebra, initial encounter for closed fracture]08-25-4742ZfibfepcOwzzq fractures (2 sources)Unspecified displaced fracture of fifth cervical vertebra, initial encounter for closed fracture; Translations: [Closed fracture of fifth cervical vertebra]78-74-3568WbsizmqgXoflu gastrointestinal disorders (2 sources)Viscus structure finding; Translations: [Other specified symptoms and signs involving the digestivesystem and abdomen]Onset: 79-88-5928EyqtkjwfBzepu lower respiratory disease (2 sources)Orthopnea; Translations: [Orthopnea]Onset: 842858-45-5065 EpisodicOther lower respiratory disease (1 source)Orthopnea; Translations: [Orthopnea]Onset: 16-34-4044EjvzyadtUqgbb lower respiratory disease (9 sources)Pleuritic pain; Translations: [Pleurodynia]86-07-7113GoyfnsasKqueb lower respiratory disease (2 sources)Lower respiratory tract infection; Translations: [Unspecified acute lower respiratory infection]50-19-9722GdimsjawGvvsv nervous system disorders (6 sources)Carpal tunnel syndrome; Translations: [Carpal tunnel syndrome, left upper limb]58-09-5041IxsfdsrPokxn nervous system disorders (7 sources)Other acute postprocedural pain; Translations: [Pain in joint, pelvic region and thigh]22-21-9634RenfduhcQgfls nutritional; endocrine; and metabolic disorders (1 source)Hypomagnesemia; Translations: [Hypomagnesemia]Onset: 47-87-6619Zxrrfya Other screening for suspected conditions (not mental disorders or infectious disease) (20 sources)Raised cardiac enzyme or marker; Translations: [Other specified abnormal findings of blood chemistry]Onset: 021423-19-3104RqbbzifxWtrnzfq on above:Problem List clean-up per request of Phys. EHR CmtePancreatic disorders (not diabetes) (20 sources)Pancreatic insufficiency; Translations: [Other specified diseases of pancreas]Onset: 984332-11-0216DadqpfxaCbqzzjxybu and visceral atherosclerosis (2 sources)Arteriosclerotic vascular diseaseOnset: hronic Peritonitis and intestinal abscess (17 sources)Abdominal qfuamkl91-70-4150YryokdxsEvygzffb; pneumothorax; pulmonary collapse (4 sources)Pleurisy; Translations: [Pleurisy]75-66-1721XutpkernVulfbiabx heart disease (20 sources)Pulmonary arterial hypertension; Translations: [Secondary pulmonary arterial hypertension]Onset: 703086-58-8676ZgpehojMvsbutvx codes; unclassified (20 sources)Disorder of pancreas; 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]Onset: 42-11-7981HdxlftdKogfuuef codes; unclassified (20 sources)History of pancreatectomy; 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]55-59-6044BusihtzXufcfpah codes; unclassified (4 sources)Acquired total absence of pancreas; 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]23-78-5105ErxlhoiEsmjiqgw codes; unclassified (2 sources)Body mass index 20-24 - normal; Translations: [Body mass index (BMI) 20.0-20.9, adult]Onset: 338706-93-8919PajzkjwoAbksmnamcaod (1 source)CONTACT W/AND (SUSP) EXPOS COVID-19; Translations: [CONTACT W/AND (SUSP) EXPOS COVID-19]Onset: 53-38-5523Gsvkosrucwmz (1 source)I25.10 - Atherosclerotic heart disease of [place] coronary artery without angina pectoris,I25.5 - Ischemic cardiomyopathy,R06.00 - Dyspnea, unspecified Unclassified (2 sources)Patient encounter zqecqf56-03-1940Jjlqyxdssdtm (1 source)High Blood SugarOnset: 10-26-2024 Past or Other Problems Problem ClassificationProblemDateDocumented DateEpisodic/ChronicAbdominal pain (3 sources)Upper abdominal pain, unspecified; Translations: [UPPER ABDOMINAL PAIN, UNSPECIFIED]Onset: 13-92-6706ObgbzeflTclfolb dysrhythmias (20 sources)Bradycardia; Translations: [Bradycardia, unspecified]Onset: 266375-90-4460DofgltjsNtqmywunyq and other anemia (1 source)Iron deficiency anemia, unspecified; Translations: [Iron deficiency anemia, unspecified]Onset: 18-22-2148YiwyffvdFmokxssy mellitus with complications (20 sources)Diabetes mellitus; Translations: [Uncontrolled diabetes mellitus] Onset: 05-02-2023 Resolved: 739599-31-1010LjxbyyfNbtlnus on above:Problem List clean-up per request of Phys. EHR CmteDiabetes mellitus without complication (20 sources)Secondary diabetes mellitus; Translations: [Diabetes mellitus due to underlying condition without complications]Onset: 01-02-2022 Resolved: 85-75-1132LcwiitkQsqeneo on above:type 1- insulin pump in place. Outside Source Comment: Comment on above: Problem List clean-up per request of Phys. EHR CmteFracture of neck of femur (hip) (20 sources)Closed intertrochanteric fracture; Translations: [Displaced intertrochanteric fracture of right femur, initial encounter for closed fracture]Onset: 05-25-2023 Resolved: 815670-20-6152ZysvrschZfsbfqp on above:Problem List clean-up per request of Phys. EHR CmteImmunizations and screening for infectious disease (20 sources)Needs influenza immunization; Translations: [Encounter for immunization]Onset: 05-19-2023 Resolved: 829036-77-3988KeqzxxeqUipv disorders (20 sources)Mood disordersOnset: 797763-57-1906Ysjgqvnsl of unspecified nature or uncertain behavior (20 sources)Benign neoplasm of pancreas; Translations: [Neoplasm of unspecified behavior of digestive system]Onset: 06-23-2018 Resolved: 649851-36-2952TlzryonvMwmrhjyjfpv deficiencies (20 sources)Iron deficiency; Translations: [Iron deficiency]Onset: 06-16-2024 51-94-7189CxbhzlwqVilsy connective tissue disease (20 sources)Dupuytren's contracture; Translations: [Palmar fascial fibromatosis [Dupuytren]]Onset: 02-05-2023 Resolved: 377960-80-7919CvchjuweDgrqf connective tissue disease (20 sources)Pain of right thigh; Translations: [Pain in right thigh]Onset: 05-19-2023 Resolved: 390399-47-1957WhpfavvbOczes fractures (20 sources)Closed fracture of fourth cervical vertebra; Translations: [Unspecified nondisplaced fracture of fourth cervical vertebra, subsequent encounter for fracture with routine healing]Onset: 09-09-2023 Resolved: 610592-54-2074NwvsuvufZnmwr lower respiratory disease (20 sources)Other nonspecific abnormal finding of lung field; Translations: [Other nonspecific abnormal findingof lung field]Onset: 02-05-2023 Resolved: 940506-37-5173BovhjzscWsvsr lower respiratory disease (6 sources)Pleurodynia; Translations: [Painful respiration]Onset: 07-16-2024 60-60-3619AxixdqgnTbonu nervous system disorders (20 sources)Carpal tunnel syndrome of left wrist; Translations: [Carpal tunnel syndrome, left upper limb]Onset: 02-28-2024 Resolved: 243214-64-6140OyenfcmFhxch nervous system disorders (20 sources)Hip pain; Translations: [Other acute postprocedural pain]Onset: 05-26-2023 Resolved: 724132-70-0297ZruwllmqVvekrsc on above:Problem List clean-up per request of Phys. EHR CmtePathological fracture (20 sources)Fracture of bone of hip region; Translations: [Age-related osteoporosis with current pathological fracture, unspecified femur, sequela] Onset: 05-19-2023 Resolved: 641814-87-6466UwwqvdrrWoqxwtbyv (except that caused by tuberculosis or sexually transmitted disease) (2 sources)Bilateral pneumoniaOnset: 272422-11-9950UuubzgocTwfefxnf codes; unclassified (2 sources)Body mass index (BMI) 20.0-20.9, adult; Translations: [Body mass index (BMI) 20.0-20.9, adult]Onset: 86-32-7223FewdorznDiokpjlyrg (except in labor) (20 sources)Sepsis due to Escherichia coli; Translations: [Sepsis due to Escherichia coli [E. coli]]Onset: 05-02-2023 Resolved: 765475-01-1112SeuxqyxpUiom and subcutaneous tissue infections (20 sources)Abscess of abdominal wall; Translations: [Cutaneous abscess of abdominal wall]Onset: 06-19-2024 Resolved: 383056-17-1192BfkyapsjKyqkdsudu-apqhgph disorders (20 sources)Smoker; Translations: [Nicotine dependence, unspecified, uncomplicated]Onset: 2018 Resolved: 837684-77-8720KreuezhLottvgftrkny (2 sources)Onset: 05-25-2023 Resolved: Results Test NameValueInterpretationReference RangeFacilityC Urineon 41-27-6379Xcupbpxb identified Cx Nom (U)Microbiology PROCEDURE: Urine Culture [...] Locations R1: This test was performed at: [facility], [address] [place] [address], [address]- , , SpwfmxKenfwcParkview Health Bryan HospitalComment on above:Performed By: #### [id number] #### [facility] [address] [place] [id number] Clinical Summaryon 66-20-3911PR Clinical SummaryED Clinical Summary [address] [address] ED Clinical Summary Person Information Name: MANOLO ROCHE [facility] Age: 89 Years : 1935 Sex: Male Language: Sammarinese PCP: SALVADOR NARANJO DO Marital Status: Visit [...] 05/17/2025 12:34:28 05/17/2025 12:34:28 05/17/2025 12:34:28 ADDRESS: [address] [place] [id number] PHYS DOC NOTES: MEDICAL INFORMATION: Prescriptions Given: New Medications [id number], [address], [place] [id number], [phone] phenazopyridine (Pyridium 200 mg Tab) 1 Tablets By Mouth 3 times a day for 2 Days. Refills: 0. Medications to Continue Taking That Have Changed [id number], [address], [place] [id number], [phone] START: cephalexin (Keflex 500 mg Cap) 1 [...] Address: Devin: Tristan GORDON, [address], [address] [address] Business (1) In 3 days 05/20/2025 DIAGNOSIS: Bacterial infection, unspecified; UTI (urinary tract infection), bacterialNormal [facility] CenterED Note-Physicianon 40-91-6261FO Note-PhysicianED Note-Physician Basic Information Time Seen: Evonne [...] Gastrointestinal: Urological: Exam performed with female nurse, Emmanuelel, at bedside. Uncircumcised male. Foreskin isappropriately extended [...] day(s), # 10 cap(s), Refills(s) 0, Pharmacy: [id number], 177, cm, 05/17/25 10:58:00 EST, Height/Length Dosing, 61.7, kg, 05/17/25 10:58:00 EST,Weight Dosing phenazopyridine, 200 mg = 1 tab(s), Oral, TID, X 2 day(s), # 6 tab(s), Refills(s) 0, Pharmacy: [id number], 177, cm, 05/17/25 10:58:00 EST, [...] Oral, TID Follow-up With When Contact Information Tirstan JULIO In 3 days 05/20/2025 EST [address] [facility] [address] [place], [place] [id number] [facility] (1) Additional Instructions: Patient Education Urinary Tract [...] made to ensure accuracy, however, inadvertently computerized gravel machine operator mistakes may be present. Appropriate healthcare [...] capsule, Oral, q24hr atorvastat (more content not included)...[facility] Comment on above:Result Comment: Electronically Signed By: Chao Douglass PA-C\.br\Date and Time Signed: 05/17/2512:33 EST\.br\Electronically Co-Signed By: Mely Rollins M.D.\.br\Date and Time Co-Signed: 05/17/25 17:40 ESTED Patient Summaryon 80-69-1138MI Patient SummaryED Patient Summary [place] [id number] Patient Discharge Instructions Person Information Name: MANOLO ROCHE Age: 89 Years Arrival Date: 05/17/2025 10:44:24 Discharge Diagnosis: Bacterial infection, unspecified; UTI (urinary tract infection), bacterial Primary Care Physician: SALVADOR NARANJO DO Provider Information Primary Provider: Mely Rollins M.D. Advanced Block Breaker Operator:Chao Douglass PA-C The exam and treatment you received in the Emergency Department were for an urgent problem and are not intended as complete care. It is important that you follow up with a doctor, nurse practitioner,or physician???s inventory control assistant for ongoing care. If your symptoms become worse or you do not improve asexpected and you are unable to reach your usual health care provider, you should return to the Emergency Department. We are available 24 hours a day. MANOLO ROCHE has been given the following list of patient education materials, prescriptions and follow-up instructions: Follow-up Instructions: With: Address: When: Tristan MELCHOR [address] [place] [address], [address], [address] [address] Business (1) In 3 days 05/20/2025 In the event that this physician does not participate in your insurance network, please consult with your insurance company to find a nearby participating provider. Patient Education Materials: Urinary Tract Infection, Adult A MESSAGE TO ALL PATIENTS REGARDING OPIOIDS PRESCRIPTION OPIOIDS: WHAT YOU NEED TO KNOW Prescription opioids can be used to help relieve ojmeomvv-er-zzmzxe pain and are often prescribed following a [...] overdose. ??? If you (more content not included)...[facility] HospitalUA with Cult Rflxon 52-72-9076Exujk (U)YellowNormalYellowUniversity Hospitals Conneaut Medical CenterComment on above:Order Comment: Added by Monroe ExpertResult Comment: Microscopic readings are only performed on those samples that meet specific criteria set forth by [facility].Performed By: #### [id number] #### [facility] [address], [place] [address]Fypsjhg (U) [Mass/Vol]NegativeNormalNegCleveland Clinic Euclid HospitalComment on above:Order Comment: Added by Monroe ExpertPerformed By: #### [id number] #### [facility] [address], [place] [address]Vufxpwt Ql (U)NegativeNormalNegCleveland Clinic Euclid Hospital Comment on above:Order Comment: Added by Monroe ExpertPerformed By: #### [id number] #### [facility] [address], [place] [address]UD Blood1+ mg/dLAbnormalNegativeUniversity Hospitals [facility] Comment on above:Order Comment: Added by Monroe ExpertPerformed By: #### [id number] #### [facility] [address], [place] [address]VC ClarityEx.TurbidAbnormalClearFTrinity Health System [facility] Comment on above:Order Comment: Added by Monroe ExpertPerformed By: #### [id number] #### [facility] [address], [place] [address]LT Leuk Bip327 Jatinder/uLAbnormalNegativeUniversity Hospitals Conneaut Medical CenterComment on above:Order Comment: Added by Monroe ExpertPerformed By: #### [id number] #### [facility] [address], [place] [address]UF Nitrite1+ mg/dLAbnormalNegCleveland Clinic Euclid Hospital Comment on above:Order Comment: Added by Monroe ExpertPerformed By: #### [id number] #### [facility] [address], [place] [address]CP pH8.0Invalid Interpretation Code5.0-9.0[facility] CenterComment on above:Order Comment: Added by Monroe ExpertPerformed By: #### [id number] #### [facility] [address], [place] [address]OK Protein2+ mg/dLAbnormalNegCleveland Clinic Euclid Hospital Comment on above:Order Comment: Added by Monroe ExpertPerformed By: #### [id number] #### [facility] [address], [place] [address]DO Spec Grav1.014Invalid Interpretation Code1.005-1.030[facility] CenterComment on above:Order Comment: Added by Monroe Expert Performed By: #### [id number] #### [facility] [address], [place] [address]KJ UrobilinogenNegativeNormalNegCleveland Clinic Euclid HospitalComment on above:Order Comment: Added by Discern ExpertPerformed By: #### [id number] #### [facility] [address], [place] [address]CL WBC Ubigj38-98FqohscpmDqxvnqMcCullough-Hyde Memorial HospitalComment on above:Order Comment: Added by Discern ExpertPerformed By: #### [id number] #### [facility] [address], [place] [address]Pmugvropuxxj (U) [Mass/Vol]NegativeNormalNegCleveland Clinic Euclid HospitalComment on above:Order Comment: Added by Monroe ExpertPerformed By: #### [id number] #### [facility] [address], [place] [address]HR Bacteria4+ /HPFAbnormPremier Health Miami [facility] Comment on above:Order Comment: Added by Monroe ExpertPerformed By: #### [id number] #### [facility] [address], [place] [address]DI CA Ox CrystalPresentAbnOhio Valley Hospital Comment on above:Order Comment: Added by Monroe ExpertPerformed By: #### [id number] #### [facility] [address], [place] [address]GU MucousTraceNormalNegCleveland Clinic Euclid HospitalComment on above:Order Comment: Added by Monroe ExpertPerformed By: #### [id number] #### [facility] [address], [place] [address]BZ RJV9-26Cqdftwxd6-4Tllcsl [facility] CenterComment on above:Order Comment: Added by Monroe ExpertPerformed By: #### [id number] #### [facility] [address], [place] [address]MT WBC>18Ojekfupz7-5Tyerex [facility] CenterComment on above:Order Comment: Added by Discern ExpertPerformed By: #### [id number] #### [facility] [address], [place] [address]DG with Cult Rflx SPon 96-04-8152LJ Spec DescFoleyNormalFishmichelle [facility] CenterComment on above:Performed By: #### [id number] #### [facility] [address], [place] [address]LWCmz 90-25-6789Jcz [address] [address] Cardiac Rehab Report Signed Patient: MANOLO ROCHE MR#: [id number] : 1935 Acct:[id number] Age/Sex: 89 / M ADM Date: 05/10/25 Loc: CR Attending Dr: Anat Perez M.D. Ordering Physician: Marito Jimenez M.D. 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 Interpretive Statements Patient may start cardiac rehab as outlined in the treatment plan. Electronically Signed On 05-10-2025 15:43:30 EDT by CHCUK ROACH M.D. Dictated By: CHUCK ROACH Signed By: 05/10/25 1544 05/10/25 1544 DD/ 1433 TD/TT: Environmental Health Inspector:TBHRadiology, Radiologist, - 05/10/[address] [address] Cardiac Rehab Report Signed Patient: MANOLO ROCHE MR#: [id number] : 1935 Acct:[id number] Age/Sex: 89 / M ADM Date: 05/10/25 Loc: CR Attending Dr: Anat Perez M.D. Ordering Physician: Marito Jimenez M.D. 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 Interpretive Statements Patient may start cardiac rehab as outlined in the treatment plan. Electronically Signed On 05-10-2025 15:43:30 EDT by CHUCK ROACH M.D. Dictated By: CHUCK ROACH Signed By: 05/10/25 1544 05/10/25 1544 DD/ 1433 TD/TT: Environmental Health Inspector: NETO HealthcareRadiology Study observation (narrative)[facility] HealthcareITPOrdered By: Radiologist Radiology on 92-71-0636HZXO [employer] Work Phone: ITPon [phone], [place] [address] Cardiac Rehab Report Signed Patient: MANOLO ROCHE MR#: [id number] : 1935 Acct:[id number] Age/Sex: 89 / M ADM Date: 05/07/25 Loc: CR Attending Dr: Anat Perez M.D. 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 Order Number: [id number] Vu MD: CHUCK ROACH M.D. Interpretive Statements Patient may start cardiac rehab as outlined in the treatment plan. Electronically Signed On 05-08-2025 19:06:51 EDT by CHUCK ROACH M.D. Dictated By: CHUCK ROACH Signed By: 05/08/25190605/08/251906 DD/ 08 TD/TT: Environmental Health Inspector:Iris Hartley MD - 05/08/2025 [place] [address] Cardiac Rehab Report Signed Patient: MANOLO ROCHE MR#: [id number] : 1935 Acct:[id number] Age/Sex: 89 / M ADM Date: 05/07/25 Loc: CR Attending Dr: Anat Perez M.D. 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 Order Number: [id number] Reading MD: CHUCK ROACH M.D. Interpretive Statements Patient may start cardiac rehab as outlined in the treatment plan. Electronically Signed On 05-08-2025 19:06:51 EDT by CHUCK ROACH M.D. Dictated By: CHUCK ROACH Signed By: 05/08/25190605/08/251906 DD/ 08 TD/TT: Environmental Health Inspector: NETO HealthcareRadiology Study observation (narrative)[facility] HealthcareITPOrdered By: Radiologist Radiology on 62-85-9798GWWS Healthcare Work Phone: cNOVon [phone] Visit (ENDOLN) MANOLO ROCHE ([id number]) 1935 M Date Time Provider Department 05/03/25 [...] Type 1. Here with . At 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 Per patient, this was done due to [...] daily. Di (more content not included)...NormalMercy Health Urbana Hospitalon 03-89-5275VLOCEiquibxcv (ENDOLN) MANOLO ROCHE ([id number]) 1935 M Date Time Provider Department 05/03/25 AYANA ZAVALA ENDOLN During your visit today, we recorded the following information about you: Miguel A Goodwin MA 05/03/2025 8:43 AM Signed Attempted to reach patients as a reminder that patient has a 10 am appointment with Marc our environmental educator and an appointment at 11 a.m. with Ayana. Also left detailed message that we wanted to know if he has been checking his blood glucose and if so to please bring those to todays appointment. Allergies As of Date: 05/03/2025 (No Known Allergies) Date Reviewed: 04/09/2025 Reviewed by: Ayana Zavala APRN.SENIOR ELECTRONICS TECHNICIAN - Fully Assessed Reason for Visit: Patient Question [7922] Cmt: Glucose readings Prescriptions as of 05/03/2025 - insulin glargine (LANTUS SOLOSTAR U-100 INSULIN) 100 unit/mL (3 mL) Inject 12 Units subcutaneously daily at bedtime. - insulin aspart U-100 (NOVOLOG FLEXPEN U-100 INSULIN) 100 unit/mL (3 mL) pen Inject 4 units with meals plus sliding scale (Max daily dose of 30 units daily) - Insulin [place], Disposable, (BD ULTRA-FINE [place]Y PEN NEEDLE) 32 [...] Inject 1 mg subcutaneously as needed. - sdzjxz-irowoqsy-abtfxty (CREON) 24,000-76,000 -120,000 unit cpDR Take 2 [...] Encounter Status:Closed by MIGUEL A GOODWIN on 05/03/25NoKing's Daughters Medical Center OhioCNPNTelephone (ENDOLN) MANOLO ROCHE ([id number]) 1935 M Date Time Provider Department 05/03/25 AYANA ZAVALA During your visit today, we recorded the following information about you: Miguel A Goodwin MA 05/03/2025 3:12 PM Signed Received a fax from [facility] of patients current medication list as well as glucose readings. Ayana reviewed then requested to send for scan. Allergies As of Date: 05/03/2025 (No Known Allergies) Date Reviewed: 05/03/2025 Reviewed by: Ayana Zavala APRN.SENIOR ELECTRONICS TECHNICIAN - Fully Assessed Reason for Visit: Patient Update [1234] Cmt: [facility] Medication update and glucose readings Prescriptions as of 05/03/2025 - insulin glargine (LANTUS SOLOSTAR U-100 INSULIN) 100 unit/mL (3 mL) Inject 15 Units subcutaneously daily at bedtime. - insulin aspart U-100 (NOVOLOG FLEXPEN U-100 INSULIN) 100 unit/mL (3 mL) pen Inject 4 units with meals plus sliding scale (Max daily dose of 30 units daily) - Insulin Carolina, Disposable, (BD ULTRA-FINE MARICHUY PEN NEEDLE) 32 gauge x 5/32 Use four times daily with insulin pens - Blood-Glucose Sensor (Festicket G7 SENSOR) delfin Change every 10 days. [...] Inject 1 mg subcutaneously as needed. - fyltyt-lirztzii-yyylekc (CREON) 24,000-76,000 -120,000 unit cpDR Take 2 [...] Encounter Status:Closed by MIGUEL A GOODWIN on 05/03/25[facility] SystemAmbulatory Visit Summaryon 55-36-4183Nsxnjyfzws Visit SummaryAmbulatory Visit Summary MANOLO ROCHE :1935 Visit Date:04/25/2025 Ambulatory Visit Instructions Your Diagnosis Urinary retention, Incomplete bladder emptying Benign prostatic hyperplasia Hydronephrosis Screening PSA (prostate specific antigen) Your Care Team Attending Physician - Tristan MELCHOR MD Primary Care Physician - SALAVDOR NARANJO DO This Is Your Medications List [...] When: Comments: Pending Cysto/bladder function testing Where: [address] [place] [address]- Medications What How Much When Instructions [...] signed up for this yet, please contact [employer] at [phone] to get signed up today. Language Information Language assistance services are available as needed. [facility] HospitalUrology Office/Clinic Noteon [id number] Office/Clinic NoteUrology Office/Clinic Note Chief Complaint new patient HPI Staff 89 year old male [facility] F/U and Urology consult 04/10/25 for [...] is a 89 yo M here for [facility] f/u for urinary retention. 1. Urinary retention, (R33.9: Retention of urine, unspecified)Incomplete bladder emptying Seen at [facility] 04/10/25 for urinary retention of 700 [...] He was seen in consultation at the [facility] for significant urinary retention of about [...] Information JULIO OGLESBY, Tristan Interiano, URL [address] [place] [phone]- Additional Instructions: Pending Cysto/bladder function testing Patient Education I, Collette Phillips, personally scribed for Dr. Melchor on 04/25/2025 15:13:38. . Documentation recorded by the scribe, Collette Phillips, accurately reflects the services(s) I performed and decisions made by me. Authenticated by Dr. Melchor on 04/25/2025 15:15:06. Portions of this record may have been created with voice recognition artificial intelligence software, specifically PowerDsine, BlueRonin and or EatingWell. Substitutions may have occurred due to the [...] pacemaker, Cataract extraction, H/O (more content not included)...[facility] HospitalComment on above:Result Comment: Electronically Signed By: Quyen Melchor\.br\Date and Time Signed: 04/25/25 15:24 EDTCNPHaley 41-75-2482PMDXKtpkfvbjw (ENDOLN) MANOLO ROCHE ([id number]) 1935 M Date Time Provider Department 04/23/25 [...] enzyme or marker Patient is currently at [facility] [phone] Spouse states they are not controlling his BS well. Advised Provider doesn't have charge of care as he is admitted to [facility] and she must reach out to [...] Signed Attempted to reach staff at [facility]. Was transferred but then no answer. 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 - insulin aspart U-100 (NOVOLOG FLEXPEN U-100 INSULIN) 100 unit/mL (3 mL) pen Inject 4 units with meals plus sliding scale (Max daily dose of 30 units daily) - Insulin Carolina, Disposable, (BD ULTRA-FINE MARICHUY PEN NEEDLE) 32 gauge x 5/32 Use four times daily with insulin pens - Blood-Glucose Sensor (Festicket G7 SENSOR) delfin Change every 10 days. [...] Inject 1 mg subcutaneously as needed. - mhtqrm-czfnefgu-todlhry (CREON) 24,000-76,000 -120,000 unit cpDR Take 2 [...] *06/23/2018 Encounter Status:Closed by AYANA ZAVALA on 04/24/25[facility]CMorrow [facility] peptide SerPl-mCncon 04-09-2025 peptide [Mass/Vol]<0.1Low1.1-4.4 [facility] on above:Order Comment: Specimen Type: BLOOD SPECIMENOrdering Facility: [facility] Address:[address] [place], [place] [address]Performed By: #### 1986-9 ####[facility] LABCLIA [id number] [id number], [place] [address] [place] OF WHITE HOSPITALCC GLUCOSE P FAST SERPL-ALLEGHENY HEALTH NETWORKon 07-11-1791Obhunjp [Mass/Vol]751 mg/dLHigh 74 - 99 mg/dLLake Regional Health SystemComment on above:[place] Diabetes Association guidelines state that a diabetes mellitus diagnosis is preliminarily made when the fasting plasma glucose meets or exceeds 126 mg/dL. In the absence of unequivocal hyperglycemia, results should be confirmed with repeat testing. Patients are at increased risk for diabetes mellitus (prediabetes) when the fasting glucose is 100 to 125 mg/dL.Interpretation and review of laboratory resultsAbnormalLake Regional Health SystemSpecimen Type: BLOOD SPECIMEN [facility] Address: [address] [place] [id number] Original Ordering Provider: AYANA LAKHANI [facility] 90-59-2038BRWBFsebtn Visit (ENDOLN) KALEYMANOLO ([id number]) 1935 M Date Time Provider Department 04/09/25 2:00 PM AYANA ZAVALA ENDOLN During your visit today, we recorded the following information about you: Pulse Blood pressure Weight 60/minute 162/86 62.9 kg Ayana Zavala APRN.SENIOR ELECTRONICS TECHNICIAN 04/10/2025 8:17 AM Addendum Endocrinology Follow Up History of Present Illness Manolo Roche is a 89 year old male presents today for follow up of DM Type 1. Here with . At [facility] 10/2024, basal rate was reduced overnight. [...] or vomiting. 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 Labwork from this AM is pending. recalls he is not bolusing consistently and will ignore his Omnipod alarms at times. Patient recalls being consistent with his Novolog and Lantus injections when he was on these. 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 Per patient, this was done due to [...] OTHER Medication Dosage Pharm Subclass Blood-Glucose Sensor (Festicket G7 SENSOR) delfin Change every 10 days. [...] to treat Hypoglycemia (Hyperg (more content not included)...NormalSycamore Medical CenterGAD65 Ab Ser-aCncon 04-09-2025 Glutamate decarboxylase 65 Ab Qn (S)<5.0Normal<=5.0[facility] Comment on above:Order Comment: Specimen Type: BLOOD SPECIMENOrdering Facility: [facility] Address:[address], [place] [address]Rrzqmj Comment: Anti-glutamic acid decarboxylase antibody (GAD65) test [...] diseases. Clinical correlation is required.Performed By: #### 05172-4 ####[facility] [id number] [place] [address] [place] AMERICAGlucose p fast SerPl-ncon 83-41-4751Ldtdhzz post fast [Mass/Vol]751 mg/jPQwtt47-28SkgdglkkqSycamore Medical CenterComment on above:Order Comment: Specimen Type: BLOOD SPECIMENOrdering Facility: [facility] Address:[address] [place], [place] [address]Result Comment: [place] Diabetes Association guidelines state that a diabetes mellitus diagnosis is preliminarily made when the fasting plasma glucose meets or exceeds 126 mg/dL. In the absence of unequivocal hyperglycemia, results should be confirmed with repeat testing. Patients are at increasedrisk for diabetes mellitus (prediabetes) when the fasting glucose is 100 to 125 mg/dL.Performed By: #### 1558-6 ####[facility] [id number] [place] [address] [place] OF AMERICAGlutamate decarboxylase 65 Ab Qn (S)on 93-26-5288XEGNVITG ACID DECARBOXYLAS AB QUALITATIVENegativeNormalNegativeSycamore Medical Center Comment on above:Order Comment: Specimen Type: BLOOD SPECIMENOrdering Facility: [facility] Address:[address] [place] [address] Performed By: #### 99473-1 ####[facility] [id number] [address] [place] HbA1c (Bld)on 08-33-6348Mtdvtsk glucose Estimated from glycated hemoglobin (Bld) [Mass/Vol]321 mg/dLNormalCOur Lady of Mercy Hospital on above:Order Comment: Specimen Type: BLOOD SPECIMENOrdering Facility: [facility] Address:[address] [place], [place] [address]Result Comment: eAG: (Estimated average glucose) is a calculated value from HgbA1c and is representa tive of the average blood glucose level in the last 2-3 month period.Performed By: #### 47605-7 ####[facility] LABIA [id number] [place] [address] [place] RVGRWLCXfO1d (Bld) [Mass fraction]12.8 %High4.3-5.6ClevelGranville Medical CenterComment on above:Order Comment: Specimen Type: BLOOD SPECIMENOrdering Facility: [facility] Address:[address] [place], [place] [address]Result Comment: [place] Diabetes Association guidelines indicate that patients with HgbA1c in the range 5.7-6.4% are at increased risk for development of diabetes, and intervention by lifestyle modification may be beneficial. HgbA1c greater or equal to 6.5% is considered diagnostic of diabetes.Performed By: #### 85040-0 ####[facility] LABIA [id number] [place] [address] [place] OF WHITE HOSPITALALL PRO BNPon 84-09-6714KI PRO B TYPE NATRIURETIC NADG1426 pg/mLCritically highNINF - 1800.0 pg/mLNOMS HealthcareComment on above: RESULTS CALLED TO JOEY GARCES CMP (CMP) (FOR REMOTE [facility] USE)on 40-68-0374Rpqkopj [Mass/Vol]3.2 g/dLLow3.4 - 5.0 g/dLNOMS HealthcareALBUMIN GLOBULIN [...] [Vol rate/Area]30Low>=60 mL/min/1.73m 2NOMS HealthcareGlobulin (S) [Mass/Vol]3.7 g/dLNOTN HealthcareGlucose [Mass/Vol]581 mg/dLCritically high74 - 106 mg/dLVA HOSPITAL HealthcareComment on above:RESULTS CALLED TO ZENAIDA SANDOVAL, RN Potassium [Moles/Vol]4.7 mmol/L3.5 - 5.1 mmol/LNOMS HealthcareProtein [Mass/Vol] 6.9 g/dL6.4 - 8.2 g/dLNOTN HealthcareSodium [Moles/Vol]129 mmol/ZGuz728 - 145 mmol/LNOMS HealthcareTBH EGFR-NON AF CDHPBQQM19Gdp>=60 mL/min/1.73m 2NOMS HealthcareUrea nitrogen [Mass/Vol]73 mg/dLHigh7.0 - 18.0 mg/dLNOTN Healthcare Urea nitrogen/Creatinine [Mass ratio]29.4 mg/mgNOTN HealthcareNo Panel Informationon 90-15-1902Vlzvlblnqysqnf and review of laboratory resultsAbnoVA hospitalCLINISCentennial Medical CenterGLUTAMIC AC DECARBOXYLASE ABOrdered By: Erick Peguero on 10-72-2376Rjzvrbvhn decarboxylase 65 Ab Qn (S)-5.0AbnoMercy Health Tiffin HospitalR HEMOGLOBIN A1Con 09-58-2185Gzgnfrb [Mass/Vol]269 mg/dLNOGolden Valley Memorial HospitalUglgrcizvwJzR9w (Bld) [Mass fraction]11 %High4.5 - 6.2 %L[facility] Regional Health SystemComment on above:ADA RECOMMENDED LIMIT 4.0 - 6.0 ADA THERAPEUTIC TARGET < 7.0 ACTION SUGGESTED > 7.0 Interpretation and review of laboratory resultsAbnormSelect Specialty Hospital - Pittsburgh UPMCCLINISYNConway Medical CenterNo Panel Informationon 54-48-4955Zkottzelohztcn and review of laboratory resultsAbnormBellin Health's Bellin Psychiatric CenterTB GLUCOSE BLOODon 93-67-6522Ytxvulz [Mass/Vol]141 mg/pCGvib82 - 106 mg/dLMesilla Valley Hospital Issa 20-46-4639NNKHCnvqstxge (ENDOLN) MANOLO ROCHE ([id number]) 1935 M Date Time Provider Department 02/05/25 [...] Buffy Roche MA 02/15/2025 10:09 AM Signed [employer]-Medicare Part B Insulin RX form completed and faxed Confirmation received Allergies As of Date: 02/05/2025 (No Known Allergies) Date Reviewed: 10/26/2024 Reviewed by: Ayana Zavala APRN.CNP - Fully Assessed Reason for Visit: [email or web address] form [Other] Primary Visit Diagnosis: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 - akifcp-kmvbwrol-zdkratr (CREON) 24,000-76,000 -120,000 unit cpDR Take 2 [...] *06/23/2018 Encounter Status:Closed by AYANA ZAVALA on 02/05/25NoL[facility] ANGIOGRAM CHESTon 07-50-2549CV ANGIOGRAM CHESTCLINICAL HISTORY: Chest pain. Technique: Spiral [...] ELECTRONICALLY SIGNED BY: Howard Mae MDNormalNot AvailableCreatinineon 85-57-5561Ubzlorpqqn [Mass/Vol]1.21 mg/dL0.76 - 1.27 mg/dLLake Regional Health System Creatinine [Mass/Vol]on 00-37-1703LMJ/1.73 sq M.predicted among non-blacks MDRD (S/P/Bld) [Vol rate/Area]58 mL/min/{1.73_m2}Low59 - PINF mL/min/1.73Lake Regional Health SystemInterpretation and review of laboratory resultsSouth Coastal Health Campus [facility] Performed at: - LabCedar [facility] [address], [address], [place], [place] [address] Continuous Weld Pipe Mill Supervisor: Hilario Chew MD, Phone: [phone] J. Carter Specialty Hospital and Nursing FacilityXR CHEST 2 VIEWSon 71-16-4123HR CHEST 2 VIEWSTITLE OF EXAM: XR CHEST [...] the interpreting radiologist.NormalNot AvailableXR Chest 2 Viewson 75-05-3533QUIXB OF EXAM: XR CHEST 2 VIEWS REASON [...] signed in approved by the interpreting radiologist. [facility] HealthcareRadiology Study observation (narrative)L[facility] Health SystemXR Chest 2 ViewsOrdered By: Yuval Gill on 17-62-5959DBGCLake Regional Health System Work Phone: CNPNon [id number] (ENDOLN) MANOLO ROCHE ([id number]) 1935 M Date Time Provider Department 12/19/24 AYANA ZAVALA ENDOLN During your visit today, we recorded the following information about you: Sharonda Felipe 12/19/2024 12:07 PM Signed Pt needs refill on sensors. Do not see on current med list. Pt uses [facility] pharmacy in [facility]. Insurance is not going to pay for this until 01/03. Spouse is requesting to speak to a nurse about getting an alternative until then. Please review and advise. Patient has been identified by name and birthdate. Duration of symptoms: N/A Person calling: self Call patient at: on cell [phone] (cell) Was an appointment scheduled: No Closing statement: Results or non-symptom based questions: Thank you for calling [facility], your call will be returned within the next business day. Ayana Hess APRN.KALANI 12/25/2024 8:04 AM Addendum Rx sent however patient obtains typically from [facility], are they still having issues obtaining from there? Erick Peguero LPN 12/27/2024 11:08 AM Signed Spoke to pharmacy, the sensors are ready for moss picker. Relayed message to patient's . She states that they do usually receive sensors from [facility] but they are having issues receiving them. The patient uses more that prescribed and paid for by insurance because they fall out. She will moss picker those at pharmacy , if there [...] PUMP (MAX DAILY 75 UNITS) - Insulin Carolina, Disposable, (BD ULTRA-FINE MARICHUY PEN NEEDLE) 32 [...] Inject 1 mg subcutaneously as needed. - jpnclr-hsdukdky-gnidhgy (CREON) 24,000-76,000 -120,000 unit cpDR Take 2 [...] ordered this encounter Disp Refills Start End Festicket G7 SENSOR DEVICE 3 ea* 0 12/25/2024 Sig: Change every 10 days. Encounter Status:Closed by AYANA ZAVALA on 12/25/24[facility] 88-75-4313YEXKWrpfzi Visit (ENDOLN) MANOLO ROCHE ([id number]) 1935 M Date Time Provider Department 10/26/24 12:15 PM AYANA ZAVALA During your visit today, we recorded the following information about you: Pulse Blood pressure Weight Height 60/minute 163/80 61 kg 1.778 m Ayana Zavala APRN.SENIOR ELECTRONICS TECHNICIAN 10/26/2024 1:11 PM Signed Endocrinology Follow Up History of Present Illness Manolo Roche is a 89 year old male presents today for follow up of DM Type 1. Here with . At 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 Per patient, this was done due to [...] mg subcutaneously as n (more content not included)...NormalSycamore Medical CenterHEMOGLOBIN A1C (POC)on 06-11-2173YhS7q (Bld) [Mass fraction]12 % Abnormal4.3 - 5.6 %[facility] Medical CenterComment on above:Location:[facility], [address] [place] [address], [facility] Point of care (POC) Hemoglobin A1c (HGBA1C) [...] specific diabetes management situations: The POC device medical device sales provides a normal range of 4.2% to 6.5% for the HGBA1C POC test. However, the [place] Diabetes Association guidelines indicate that patients with [...] cell lifespan. Interpretation and review of laboratory resultsAbnormalClevelCarolinas ContinueCARE Hospital at University ClinicALL BASIC METABOLIC PANELon 66-52-7939Kahww gap [Moles/Vol]12.4 mmol/LNOMS HealthcareCalcium [Mass/Vol]8.2 mg/dLLow8.5 - 10.1 mg/dLNOMS HealthcareChloride [Moles/Vol]101 mmol/L98 - 107 mmol/LNOMS HealthcareCO2 [Moles/Vol]27.9 mmol/L 21.0 - 32.0 mmol/LNOMS HealthcareCreatinine [Mass/Vol]1.41 mg/dLHigh0.70 - 1.30 mg/dLNOMS HealthcareGFR/1.73 sq M.predicted CKD-EPI (S/P/Bld) [Vol rate/Area]58 Low>=60 mL/min/1.73m 2NOMS HealthcareGlucose [Mass/Vol]355 mg/fHFiyw99 - 106 mg/dLNOMS HealthcarePotassium [Moles/Vol]4.3 mmol/L3.5 - 5.1 mmol/LNOMS HealthcareSodium [Moles/Vol]137 mmol/L136 - 145 mmol/LNOMS HealthcareTBH EGFR- NON AF PONNLCYV84Ydt>=60 mL/min/1.73m 2NOMS HealthcareUrea nitrogen [Mass/Vol]31 mg/dLHigh7.0 - 18.0 mg/dLNOMS HealthcareUrea nitrogen/Creatinine [Mass ratio]22 mg/mgNOMS HealthcareALL PRO BNPon 65-18-0117QG PRO B TYPE NATRIURETIC ZZZY5444 pg/mLCritically highNINF - 1800.0 pg/mLNOMS HealthcareComment on above:RESULTS CALLED TO Zenaida Sandoval RNNo Panel Informationon 38-13-2407Qepnpvevhaenio and review of laboratory resultsAbnormalNOMS HealthcareCLINISYNCNGREAT PLAINS REGIONAL [facility]ENTER [facility] HealthcareCNPN on 04-31-5088SYJUXyrxkwgao (ELIZABETHBHT) MANOLO ROCHE ([id number]) 1935 M Date Time Provider Department 10/13/24 [...] Date Reviewed: 09/25/2024 Reviewed by: Ayana Zavala APRN.SENIOR ELECTRONICS TECHNICIAN - Fully Assessed Reason for Visit: Omnipod/Dexcom [...] crtg Change every 72 hours. - Insulin Carolina, Disposable, (BD ULTRA-FINE MARICHUY PEN NEEDLE) 32 [...] Inject 1 mg subcutaneously as needed. - uzvgka-egmhavoe-vadgbdn (CREON) 24,000-76,000 -120,000 unit cpDR Take 2 [...] *06/23/2018 Encounter Status:Closed by GAYE MATA on 10/13/24[facility] 39-41-8458NKPGVbycgpeaf (ENDOLN) MANOLO ROCHE ([id number]) 1935 M Date Time Provider Department 10/11/24 [...] Waiting for determination [facility] Prior Overhead Distribution Engineer Endocrinology and Metabolism [place] Ruchi Rhoades 10/11/2024 11:37 AM Signed Allergies As of Date: 10/11/2024 (No Known Allergies) Date Reviewed: 09/25/2024 Reviewed by: Ayana Zavala APRN.SENIOR ELECTRONICS TECHNICIAN - Fully Assessed Reason for Visit: Insurance Authorization [[id number]] Cmt: insulin pump cart,auto,BT,G6/7 (OMNIPOD 5 G6-G7 [...] crtg Change every 72 hours. - Insulin Carolina, Disposable, (BD ULTRA-FINE MARICHUY PEN NEEDLE) 32 [...] Inject 1 mg subcutaneously as needed. - lakgda-goylanxm-aykvbyx (CREON) 24,000-76,000 -120,000 unit cpDR Take 2 [...] *06/23/2018 Encounter Status:Closed by AYANA ZAVALA on 10/11/24[facility] SystemCNPNTelephone (ELIZABETHBHT) MANOLO ROCHE ([id number]) 1935 M Date Time Provider Department 10/11/24 GAYE MATA During your visit today, we recorded the following information about you: Gaye Mata, RN 10/11/2024 4:23 PM Signed Patient's sent message patient had received Dexcom G7 CGM sensors from [employer] last night. Patient applied Omnipod 6 insulin [...] Date Reviewed: 09/25/2024 Reviewed by: Ayana Zavala APRN.SENIOR ELECTRONICS TECHNICIAN - Fully Assessed Reason for Visit: Omnipod [...] crtg Change every 72 hours. - Insulin [place], Disposable, (BD ULTRA-FINE MARICHUY PEN NEEDLE) 32 [...] Inject 1 mg subcutaneously as needed. - okbelb-iclpwbdh-tcxuvnq (CREON) 24,000-76,000 -120,000 unit cpDR Take 2 [...] *06/23/2018 Encounter Status:Closed by GAYE MATA on 10/11/24[facility] SystemCNPNon 58-77-5165PSCHTdloshocv (DEMBHT) KALEYGIOVANIMANOLO ([id number]) 1935 M Date Time Provider Department 10/10/24 GAYE MATA During your visit today, we recorded the following information about you: Gaye Mata, RN 10/10/2024 9:36 AM Signed Called and spoke with patient's . Patient called educator last week stating he has been having issues getting his Dexcom G7 CGM sensors from his DME company, [employer]. Patient states he called them a few [...] LPN 10/10/2024 3:40 PM Signed Spoke to [employer] Rep, he reported that the Dexcom supplies should be delivered today vis [employer]. Tracking nbr [id number]. According to his notes it was out for delivery at 5:48 am 10/10/2024. I attempted to reach patient at both nbrs listed, no answer. VM left with update. I will send a Vascular Closure message as well. Allergies As of Date: 10/10/2024 (No Known Allergies) Date Reviewed: 09/25/2024 Reviewed by: Ayana Zavala APRN.SENIOR ELECTRONICS TECHNICIAN - Fully Assessed Reason for Visit: Dexcom [...] crtg Change every 72 hours. - Insulin [place], Disposable, (BD ULTRA-FINE MARICHUY PEN NEEDLE) 32 [...] Inject 1 mg subcutaneously as needed. - veqguw-yaktgzpo-fmimhqw (CREON) 24,000-76,000 -120,000 unit cpDR Take 2 [...] *06/23/2018 Encounter Status:Closed by GAYE MATA on 10/10/24[facility] 55-30-2352JYREUtabhyjli (ELIZABETHLeeann) MANOLO ROCHE ([id number]) 1935 M Date Time Provider Department 10/04/24 GAYE MATA During your visit today, we recorded the following information about you: Allergies As of Date: 10/04/2024 (No Known Allergies) Date Reviewed: 09/25/2024 Reviewed by: Ayana Zavala APRN.SENIOR ELECTRONICS TECHNICIAN - Fully Assessed Reason for Visit: Omnipod [...] 5,) crtg Change every 72 hours. - bhrnaw-rtuoogta-cbsnsjw (CREON) 24,000-76,000 -120,000 unit cpDR Take 2 [...] *06/23/2018 Encounter Status:Closed by GAYE MATA on 10/04/24NoKing[facility]aughters [facility] OhioGuera (LIANNA) MANOLO ROCHE ([id number]) 1935 M Date Time Provider Department 10/04/24 GAYE MATA During your visit today, we recorded the following information about you: Gaye Mata, KARIN 10/04/2024 4:41 PM Signed Patent called stating that he is out of [employer] G7 CGM sensors and has been having difficulty getting the shipment from [employer], his DME supplier. Patient states he made 3 calls to them this week, one including a lace tearing supervisor at [facility], who promised that the shipment was sent and would be received in a day or two. Advised patient to contact his provider's office to see if they are able to help as they submitted all the original paperwork to [facility] back in August and I am not sure if they are waiting on something from the office. Patient was also told to see if the provider's office had Dexcom G7 sensor samples to provide until his shipment arrives so he does not have to drive out to [facility]. Patient verbalized understanding. Allergies As of Date: 10/04/2024 (No Known Allergies) Date Reviewed: 09/25/2024 Reviewed by: Ayana Zavala APRN.SENIOR ELECTRONICS TECHNICIAN - Fully Assessed Reason for Visit: Dexcom [...] Inject 1 mg subcutaneously as needed. - frlxka-zmqrnkzb-akyochi (CREON) 24,000-76,000 -120,000 unit cpDR Take 2 [...] *06/23/2018 Encounter Status:Closed by GAYE MATA on 10/04/24[facility] 69-04-5512OOJORlmxmsesm (DEMT) MANOLO ROCHE ([id number]) 1935 M Date Time Provider Department 09/27/24 GAYE MATA [facility] During your visit today, we recorded the following information about you: Allergies As of Date: 09/27/2024 (No Known Allergies) Date Reviewed: 09/25/2024 Reviewed by: Ayana Zavala APRN.SENIOR ELECTRONICS TECHNICIAN - Fully Assessed Reason for Visit: Omnipod [...] 5,) crtg Change every 72 hours. - xbiixr-yfqtgkxy-shcdtdf (CREON) 24,000-76,000 -120,000 unit cpDR Take 2 [...] *06/23/2018 Encounter Status:Closed by GAYE MATA on 09/27/24NoMercy Health Anderson HospitalLinwoodphone ([facility] MANOLO ROCHE ([id number]) 1935 M Date Time Provider Department 09/27/24 GAYE MATA During your visit today, we recorded the following information about you: Gaye Mata, KARIN 09/27/2024 1:23 PM Signed In error Allergies As of Date: 09/27/2024 (No Known Allergies) Date Reviewed: 09/25/2024 Reviewed by: Ayana Zavala APRN.SENIOR ELECTRONICS TECHNICIAN - Fully Assessed Prescriptions as of 09/27/2024 [...] 5,) crtg Change every 72 hours. - dhskiw-slcvfsaf-pchggat (CREON) 24,000-76,000 -120,000 unit cpDR Take 2 [...] *06/23/2018 Encounter Status:Closed by GAYE MATA on 09/27/24[facility] [id number] (ENDOLN) MANOLO ROCHE ([id number]) 1935 M Date Time Provider Department 09/26/24 AYANA ZAVALA ENDOLN During your visit today, we recorded the following information about you: Ayana Zavala APRN.SENIOR ELECTRONICS TECHNICIAN 09/26/2024 7:40 AM Signed Received page regarding [...] below Stated understanding will take pt to [facility] Advised to f/u with endo upon [...] re : HIPAA in in basics in [facility] does attend ov ( see 09-25-2024) Will document this in [facility]/ basics Erick Peguero LPN 09/26/2024 8:18 AM Signed Left message on machine to call the office. Ayana Zavala APRN.CNP 09/26/2024 11:55 AM Addendum Provided report to [facility]. Informed of BG of 614 mg/dL [...] It appears patient has been discharged from [facility] around 10:00 AM. His blood sugar has greatly improved and is at/near range per pump report today (see below). Please reach out to patient/ to see how patient is doing. I will also have Gaye (pump health and safety trainer) reach out to them to review [...] LPN 09/27/2024 5:50 PM Signed Please see TheFriendMailhart message 09/27/24 Allergies As of Date: 09/26/2024 (No Known Allergies) Date Reviewed: 09/25/2024 Reviewed by: Ayana Zavala APRN.SENIOR ELECTRONICS TECHNICIAN - Fully Assessed Prescriptions as of 09/27/2024 [...] 5,) crtg Change every 72 hours. - stiugz-dlfcsibh-rlmwpgv (CREON) 24,000-76,000 -120,000 unit cpDR Take 2 [...] (intraductal papillary mucinous (more content not included)...Normal [facility] CenterALBUMIN/CREATININE RATIO, URINEon 11-21-7445Gmlprzo DL <= 20 mg/L (U) [Mass/Vol]20.2 mg/LNormalAultman Orrville Hospital on above:Order Comment: Specimen Type: URINE SPECIMENOrdering Facility: [facility] Address:[address] [place], [place] [address]Performed By: #### UACR ####[facility] LABIA [id number] [address] STATES OF WHITE HOSPITALAlbumin/Creatinine (U) [Mass ratio]106 mg/gHigh<30[facility] on above:Order Comment: Specimen Type: URINE SPECIMENOrdering Facility: [facility] Address:[address] [place], [place] [address]Result Comment: Adult Male and Female Nephrotic Criteria: <30 mg/g is considered normal to mildly increased 30-300 mg/g is considered moderately increased >300 mg/g is considered severely increased KDIGO. (2013). KDIGO 2012 Clinical Practice Guideline for the Evaluation and Management of Chronic Kidney Disease. Official Journal of the International Society of Nephrology, 3(1), 1-150.Performed By: #### UACR ####[facility] LABIA [id number] [place] [id number] [place] OF AMERICACreatinine (U) [Mass/Vol]19.1 mg/dLLow20.0-300.0 [facility] on above:Order Comment: Specimen Type: URINE SPECIMENOrdering Facility: [facility] Address:[address] [place], [place] [address]Performed By: #### UACR ####[facility] LABCLIA [id number] [address] [address] [place] OF AMERICACNOVon 53-94-6731WNYSObhgbh Visit (ENDOLN) MANOLO ROCHE ([id number]) 1935 M Date Time Provider Department 09/25/24 2:30 PM AYANA ZAVALA During your visit today, we recorded the following information about you: Pulse Blood pressure Weight 60/minute 162/93 63.1 kg Ayana Zavala, AMADA.SENIOR ELECTRONICS TECHNICIAN 09/26/2024 11:42 AM Addendum Endocrinology Follow Up [...] in the meantime, but was able to moss picker Novolog on 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 Per patient, this was done due to [...] by mouth once daily. Intestinal Chayo Modifiers gxpukw-rwpkehau-ephyjrh (CREON) 24,000-76,000 -120,000 unit cpDR Take 2 capsules by mouth three times daily with meals. and 1 with snacks (8/day) Digestive Enzyme Mixtures lutein-zeaxanthin 25-5 mg cap Take by mouth once daily. Alternative Therapy - Antioxidant Omeprazole Magnesium 20 mg tablet Take 20 mg by mouth. Gastric Acid Secretion Storage Center Manager - Proton Pump Inhibitors (PPIs) PARoxetine (PAXIL) 40 mg tablet Take 40 mg by mouth every morning. Antidepressant - Selective Serotonin Reuptake Inhibitors (SSRIs) tamsulosin (more content not included)...NormalSy[facility] Center Comprehensive metabolic 2000 panelon 07-70-8559Fxwzndf [Mass/Vol]3.9 g/dLNormal 3.9-4.9COur [facility] of [facility] on above:Order Comment: Specimen Type: BLOOD SPECIMENOrdering Facility: [facility] Address:[address] [place], [place] [address]Performed By: #### 82389-9, LIPNF ####[facility] LABCLIA [id number] [place] [address] [place] OF AMERICAALP [Catalytic activity/Vol]156 U/XBsas89-306OngmspuefAultman Orrville Hospital on above:Order Comment: Specimen Type: BLOOD SPECIMENOrdering Facility: [facility] Address:[address] [place], [place] [address]Performed By: #### 70536-3, LIPNF ####[facility] LABCLIA [id number] [place] [address] [place] AMERICAALT [Catalytic activity/Vol]43 U/TDngyew76-91JowvpplhkAultman Orrville Hospital on above:Order Comment: Specimen Type: BLOOD SPECIMENOrdering Facility: [facility] Address:[address] [place], [place] [address]Performed By: #### 80696-2, LIPNF ####[facility] LABCLIA [id number] [address] [place] [facility] [place] Anion gap [Moles/Vol]17 mmol/LHigh8-15[facility] on above:Order Comment: Specimen Type: BLOOD SPECIMENOrdering Facility: [facility] Address:[address] [place], [place] [address]Performed By: #### 38434-9, LIPNF ####[facility] LABCLIA [id number] [place] [address] [place] OF AMERICAAST [Catalytic activity/Vol]76 U/DIhft71-96KkmysakplAultman Orrville Hospital on above:Order Comment: Specimen Type: BLOOD SPECIMENOrdering Facility: [facility] Address:[address] [place], [place] [address]Performed By: #### 41103- 8, LIPNF ####[facility] LABCLIA [id number] [place] [address] [place] AMERICABilirubin [Mass/Vol]0.5 mg/dLNormal0.2-1.3COur [facility] of [facility] on above:Order Comment: Specimen Type: BLOOD SPECIMENOrdering Facility: [facility] Address:[address] [place], [place] [address]Performed By: #### 49838-0, LIPNF ####[facility] LABIA [id number] [place] [address] [place] AMERICACalcium [Mass/Vol]9.3 mg/dLNormal 8.5-10.2COur [facility] of Mer[facility] on above:Order Comment: Specimen Type: BLOOD SPECIMENOrdering Facility: [facility] Address:[address] [place], [place] [address]Performed By: #### 45934-4, LIPNF ####[facility] LABCLIA [id number] [place] [address] [place] AMERICAChloride [Moles/Vol]86 mmol/GQgm71-748GlhjkxiquAultman Orrville Hospital on above:Order Comment: Specimen Type: BLOOD SPECIMENOrdering Facility: [facility] Address:[address] [place], [place] [address]Performed By: #### 65365-3, LIPNF ####[facility] LABIA [id number] [place] [id number] [place] OF AMERICACO2 [Moles/Vol]24 mmol/PVofabe10-74UkudgsbyoSycamore Medical Center Comment on above:Order Comment: Specimen Type: BLOOD SPECIMENOrdering Facility: [facility] Address:[address] [place] [address] Performed By: #### 23743-8, LIPNF ####[facility] LABIA [id number] [address] [place] Creatinine [Mass/Vol]1.09 mg/dLNormal0.73-1.22[facility] on above:Order Comment: Specimen Type: BLOOD SPECIMENOrdering Facility: [facility] Address:[address] [place] [address] Performed By: #### 30101-9, LIPNF ####[facility] [id number] [address] Creatinine and Glomerular filtration rate.predicted panel (S/P/Bld)66 mL/min/1.73m???Normal>=60[facility] on above:Order Comment: Specimen Type: BLOOD SPECIMENOrdering Facility: [facility] Address:[address] [place], [place] [address]Result Comment: Estimated Glomerular Filtration Rate (eGFR) is [...] not accurately reflect actual GFR.Performed By: #### 88662-1, LIPNF ####[facility] LABCLIA [id number] [place] [address] [place] AMERICAGlucose [Mass/Vol]614 mg/dLHigh 74-99[facility] on above:Order Comment: Specimen Type: BLOOD SPECIMENOrdering Facility: [facility] Address:[address] [place], [place] [address]Result Comment: The [place] Diabetes Association (ADA) provides guidance for cutoff [...] Standards of Medical Care in Diabetes 2016, [place] Diabetes Association. Diabetes Care. 2016.39(Suppl 1).Performed By: #### 53913-3, LIPNF ####[facility] LABCLIA [id number] [place] [address] [place] AMERICAPotassium [Moles/Vol]5.2 mmol/L High3.7-5.1COur Lady of Mer[facility] on above:Order Comment: Specimen Type: BLOOD SPECIMENOrdering Facility: [facility] Address:[address] [place], [place] [address]Performed By: #### 18048-7, LIPNF ####[facility] LABIA [id number] [place] [id number] [place] AMERICAProtein [Mass/Vol]7.1 g/dLNormal6.3-8.0[facility] on above:Order Comment: Specimen Type: BLOOD SPECIMENOrdering Facility: [facility] Address:[address] [place], [place] [address]Performed By: #### 00822-2, LIPNF ####[facility] LABCLIA [id number] [address] [address] [place] OF AMERICASodium [Moles/Vol]127 mmol/SWcd431-516QkwbcovibAultman Orrville Hospital on above:Order Comment: Specimen Type: BLOOD SPECIMENOrdering Facility: [facility] Address:[address] [place], [place] [address]Performed By: #### 86266-6, LIPNF ####[facility] LABCLIA [id number] [place] [address] [place] Urea nitrogen [Mass/Vol]37 mg/dLHigh9-24[facility] on above:Order Comment: Specimen Type: BLOOD SPECIMENOrdering Facility: [facility] Address:[address] [place], [place] [address]Performed By: #### 34940-6, LIPNF ####[facility] LABIA [id number] [address] OF AMERICALIPID PANEL, NONFASTINGon 31-30-6124Oqepamssugk [Mass/Vol]144 mg/dLNormal<200[facility] on above:Order Comment: Specimen Type: BLOOD SPECIMENOrdering Facility: [facility] Address:[address] [place], [place] [address]Result Comment: <200 mg/dL, Desirable 200-239 mg/dL, Borderline high >239 mg/dL, HighPerformed By: #### 01997-1, LIPNF ####[facility] LABIA [id number] [address] [place] [address] [place] STATES OF AMERICAHDL CHOLESTEROL, NF51 mg/dLNormal>39[facility] Comment on above:Order Comment: Specimen Type: BLOOD SPECIMENOrdering Facility: [facility] Address:[address] [place], [place] [address]Result Comment: 40-59 mg/dL, Acceptable >59 mg/dL, High: Negative risk factor for coronary heart disease <40 mg/dL, Low: Positive risk factor for coronary heart diseasePerformed By: #### 85870-3, LIPNF ####[facility] LABCLIA [id number] [address] [address] [facility] COMMUN[facility] HOSPITALLDL CHOLESTEROL, NF59 mg/dLNormal<100[facility] on above: Order Comment: Specimen Type: BLOOD SPECIMENOrdering Facility: [facility] Address:[address] [place], [place] [address]Result Comment: <100 mg/dL, Optimal 100-129 mg/dL, Near optimal/above optimal 130-159 mg/dL, Borderline high 160-189 mg/dL, High >189 mg/dL, Very high Secondary prevention optimal LDL Cholesterol levels are recommended to be < 70 mg/dLPerformed By: #### 26201-4, LIPNF ####[facility] LABIA [id number] [address] LDL/HDL RATIO, NF1.16 mg/dLNormal<2.54[facility] on above:Order Comment: Specimen Type: BLOOD SPECIMENOrdering Facility: [facility] Address:[address] [place], [place] [address]Result Comment: Reference: 1. National Cholesterol Education Program ATP III Guideline At-A-Glance Quick Desk Reference: National Heart, Lung, and Blood [place]. National Institutes of Health. 2001: NIH Publication No. 01-3305. 2. An International Atherosclerosis Society position paper: global recommendations for the management of dyslipidemia: executive summary, Atherosclerosis. 2014: 232(2):410-413.Performed By: #### 37624-4, LIPNF ####[facility] LABIA [id number] [place] [id number] [place] OF AMERICANON HDL CHOL, NF93 mg/dLNormal <130[facility] on above:Order Comment: Specimen Type: BLOOD SPECIMENOrdering Facility: [facility] Address:[address] [place], [place] [address]Result Comment: <130 mg/dL, Optimal 130-159 mg/dL, Near optimal/above optimal 160-189 mg/dL, Borderline high 190-219 mg/dL, High >219 mg/dL, Very high Secondary prevention optimal non HDL Cholesterol levels are recommended to be <100 mg/dLPerformed By: #### 64728-8, LIPNF ####[facility] LABCLIA [id number] [address] OF WHITE HOSPITALT CHOL/HDL RATIO NF2.82 mg/dLNormal<5.10[facility] Comment on above:Order Comment: Specimen Type: BLOOD SPECIMENOrdering Facility: [facility] Address:[address] [place] [address] Performed By: #### 88856-4, LIPNF ####[facility] [id number] [address] STATES [facility] TRIGLYCERIDES, NF168 mg/dLHigh<150[facility] Medical CenterComment on above: Order Comment: Specimen Type: BLOOD SPECIMENOrdering Facility: [facility] Address:[address] [place], [place] [address]Result Comment: <150 mg/dL, Normal 150-199 mg/dL, Borderline high 200-499 mg/dL, High >499 mg/dL, Very highPerformed By: #### 24777-7, LIPNF ####[facility] [id number] [address] STATES OF WHITE HOSPITALVLDL CHOLESTEROL, NF34 mg/dLHigh<30[facility] Comment on above:Order Comment: Specimen Type: BLOOD SPECIMENOrdering Facility: [facility] Address:[address] [place] [address] Performed By: #### 38321-7, LIPNF ####[facility] [id number] [address] [place] Issa 02-57-6285OCXMUhqslodiw ([facility]) MANOLO ROCHE ([id number]) 1935 M Date Time Provider Department 09/22/24 [...] Date Reviewed: 07/06/2024 Reviewed by: Ayana Zavala APRN.SENIOR ELECTRONICS TECHNICIAN - Fully Assessed Prescriptions as of 09/22/2024 [...] 5,) crtg Change every 72 hours. - qvihsi-ljfdwjot-lmsfqxf (CREON) 24,000-76,000 -120,000 unit cpDR Take 2 [...] *06/23/2018 Encounter Status:Closed by GAYE MATA on 09/22/24NoKing[facility]aughters [facility] OhioValdemarphone (LIANNA) MANOLO ROCHE ([id number]) 1935 M Date Time Provider Department 09/22/24 [...] Date Reviewed: 07/06/2024 Reviewed by: Ayana Zavala APRN.SENIOR ELECTRONICS TECHNICIAN - Fully Assessed Reason for Visit: Omnipod [...] 5,) crtg Change every 72 hours. - osmauv-hrjokmwh-bqqdoor (CREON) 24,000-76,000 -120,000 unit cpDR Take 2 [...] *06/23/2018 Encounter Status:Closed by GAYE MATA on 09/22/24[facility] 63-95-2401BJPKIyvpyient (LIANNA) MANOLO ROCHE ([id number]) 1935 M Date Time Provider Department 09/21/24 GAYE MATA During your visit today, we recorded the following information about you: Allergies As of Date: 09/21/2024 (No Known Allergies) Date Reviewed: 07/06/2024 Reviewed by: Ayana Zavala APRN.SENIOR ELECTRONICS TECHNICIAN - Fully Assessed Reason for Visit: Omod [...] 5,) crtg Change every 72 hours. - pxvnos-iccxeper-ddlngdz (CREON) 24,000-76,000 -120,000 unit cpDR Take 2 [...] *06/23/2018 Encounter Status:Closed by GAYE MATA on 09/21/24No[facility] BASIC METABOLIC PANELon 98-80-4736Mxzjk gap [Moles/Vol]13.1 mmol/L [facility] HealthcareCalcium [Mass/Vol]9 mg/dL8.5 - 10.1 mg/dLNOMS HealthcareChloride [Moles/Vol]99 mmol/L98 - 107 mmol/LNOMS HealthcareCO2 [Moles/Vol]31.2 mmol/L21.0 - 32.0 mmol/LNOMS HealthcareCreatinine [Mass/Vol]1.31 mg/dLHigh0.70 - 1.30 mg/dLNOMS HealthcareGFR/1.73 sq M.predicted CKD-EPI (S/P/Bld) [Vol rate/Area]>60 >=60 mL/min/1.73m 2NOMS HealthcareGlucose [Mass/Vol]385 mg/yGBmml42 - 106 mg/dL [facility] HealthcarePotassium [Moles/Vol]4.3 mmol/L3.5 - 5.1 mmol/LNOMS Healthcare Sodium [Moles/Vol]139 mmol/L136 - 145 mmol/LNOMS HealthcareTBH EGFR-NON AF RONXQNGN48Utt>=60 mL/min/1.73m 2NOMS HealthcareUrea nitrogen [Mass/Vol]23 mg/dL High7.0 - 18.0 mg/dLNOMS HealthcareUrea nitrogen/Creatinine [Mass ratio]17.6 mg/mgNOMS HealthcareALL PRO BNPon 46-03-8848EX PRO B TYPE NATRIURETIC [id number] pg/mLCritically highNINF - 1800.0 pg/mLNOMS HealthcareComment on above:RESULTS CALLED TO ZENAIDA SANDOVAL RN AT [facility] Panel Informationon 09-13-2024 Interpretation and review of laboratory resultsAbnormalNOTN HealthcareCLINISYNC NOMS HealthcareCNNURSEon 82-30-2948TYWVSSPSesvm Visit (LIANNA) MANOLO ROCHE ([id number]) 1935 M Date Time Provider Department 09/04/24 1:00 PM GAYE MATA During your visit today, we recorded the following information about you: Gaye Mata, KARIN 09/04/2024 3:22 PM Signed DIABETES SELF-MANAGEMENT EDUCATION AND SUPPORT FOLLOW-UP VISIT Type of Diabetes: Type 2 Location: [place] Type of visit: In person individual Types [...] meter for manual fingersticks, not connected to [employer] Type of visit: In person individual Patient [...] Name: Insulet Omnipod? 5 System Serial Number: [id number] Sync Date: 09/04/24 Device Time Offset (hh:mm): +00:00 Device Name: Insulet Omnipod Dash? System Serial Number: [id number] Sync Date: 03/05/22 Device Time Offset (hh:mm): +00:00 Device Name: Insulet Omnipod Dash? System Serial Number: [id number] Sync Date: 11/14/21 Device Time Offset (hh:mm): +00:00 Device Name: Insulet Omnipod DASH? [place] Serial Number: Insulet Dash Sync Date: 09/19/20 Device Time Offset (hh:mm): +00:00 Device Name: Insulet Omnipod Dash? System Serial Number: [id number] Sync Date: 09/19/20 Device Time Offset (hh:mm): [...] create frequ (more content not included)...NormalMercy Health Urbana Hospitalon 96-03-2247YPFEUymimwswb (LIANNA) MANOLO ROCHE ([id number]) 1935 M Date Time Provider Department 08/31/24 [...] Omnipod, Glooko, and Dexcom G7, his smartphone, OmnipHIGH MOBILITY 5 controller phone fully charged and updated if needed so the pump start will go smoothly. requested email resent to her with instructions on day of training information to [email or web address] Allergies As of Date: 08/31/2024 (No Known Allergies) Date Reviewed: 07/06/2024 Reviewed by: Ayana Zavala APRN.SENIOR ELECTRONICS TECHNICIAN - Fully Assessed Reason for Visit: Appointment [...] 5,) crtg Change every 72 hours. - xdetqh-tqxpzowv-igumbhi (CREON) 24,000-76,000 -120,000 unit cpDR Take 2 [...] *06/23/2018 Encounter Status:Closed by GAYE MATA on 08/31/24NoKing's Daughters Medical Center OhioCNPNon 37-87-7974QTUBUruycatvk (ENDOLN) MANOLO ROCHE ([id number]) 1935 M Date Time Provider Department 08/15/24 AYANA ZAVALA ENDOLN During your visit today, we recorded the following information about you: Miguel A Goodwin MA 08/15/2024 10:24 AM Signed Received a fax from [employer] for a physician's order. Placed on Ayana's desk for signature on form and chart notes. Miguel A Goodwin MA 08/15/2024 11:57 AM Signed Form completed, faxed, confirmation received. Sent for scan. Allergies As of Date: 08/15/2024 (No Known Allergies) Date Reviewed: 07/06/2024 Reviewed by: Ayana Zavala APRN.SENIOR ELECTRONICS TECHNICIAN - Fully Assessed Reason for Visit: Forms [913] Cmt: [employer]- Physcians order Prescriptions as of 08/15/2024 - [...] 5,) crtg Change every 72 hours. - xvcssr-etwrjlne-oybehcy (CREON) 24,000-76,000 -120,000 unit cpDR Take 2 [...] *06/23/2018 Encounter Status:Closed by ERICK PEGUERO on 08/15/24[facility] Centerdanuta 90-26-2846KEBDJvqnvrtzq (ENDOLN) MANOLO ROCHE ([id number]) 1935 M Date Time Provider Department 08/09/24 AYANA ZAVALA During your visit today, we recorded the following information about you: Sheryl Ny MA 08/09/2024 10:39 AM Signed A form has been received from [employer] for [facility] steen. Faxed [facility] note 07/06/24 to [phone]. Confirmation received. Allergies As of Date: 08/09/2024 (No Known Allergies) Date Reviewed: 07/06/2024 Reviewed by: Ayana Zavala APRN.SENIOR ELECTRONICS TECHNICIAN - Fully Assessed Reason for Visit: Forms [583] Cmt: [facility] - [facility] note Prescriptions as [...] 5,) crtg Change every 72 hours. - xydnge-xvlutldb-ktnxwzz (CREON) 24,000-76,000 -120,000 unit cpDR Take 2 [...] *06/23/2018 Encounter Status:Closed by SHERYL [place] on 08/09/24[facility] Hospitalon 25-40-2204TRHFTLYAdxdy Visit ([facility]) MANOLO ROCHE ([id number]) 1935 M Date Time Provider Department 07/25/24 1:00 PM GAYE MATA During your visit today, we recorded the following information about you: Gaye Mata, RN 07/25/2024 5:09 PM Signed DIABETES CARE AND EDUCATION VISIT Location: [place] Type of visit: In person individual PATIENT'S [...] - - - - DEVICES Device Name: Gaopeng? System Serial Number: [id number] Sync Date: 07/06/24 Device Time Offset (hh:mm): [...] basics AND daily use and CGM type: [employer] G7 with reader. Patient understand he will need to download [employer] G7 eliane on his Iphone SE. Patient unable to recall log in for Dexcom eliane. Patient downloaded G6 eliane, not G7 eliane. Educator needed to call [employer] for assistance in resetting password as patient [...] terminology: basal, bolus, carb ratio, BG target, hatljbu-di-dsfma/duration, and patient did not bring insulin vials [...] vials or have eliane (more content not included)...NormalMercy Memorial Hospital BASIC METABOLIC PANELon 79-65-8068Qngaw gap [Moles/Vol]16.6 mmol/LNOMS HealthcareCalcium [Mass/Vol]8.8 mg/dL8.5 - 10.1 mg/dLNOTN HealthcareChloride [Moles/Vol]99 mmol/L98 - 107 mmol/L NOM[facility] HealthcareCO2 [Moles/Vol]27.6 mmol/L21.0 - 32.0 mmol/LNOMS Healthcare Creatinine [Mass/Vol]1.12 mg/dL0.70 - 1.30 mg/dLNOTN HealthcareGFR/1.73 sq M.predicted CKD-EPI (S/P/Bld) [Vol rate/Area]>60>=60 mL/min/1.73m 2NOMS HealthcareGlucose [Mass/Vol]297 mg/iADpdt93 - 106 mg/dLNOTN Healthcare Interpretation and review of laboratory resultsAbnormalNOTN HealthcarePotassium [Moles/Vol]4.2 mmol/L3.5 - 5.1 mmol/LNOMS HealthcareSodium [Moles/Vol]139 mmol/L 136 - 145 mmol/LNOMS HealthcareTBH EGFR-NON AF [place]>60>=60 mL/min/1.73m 2 NOMS HealthcareUrea nitrogen [Mass/Vol]22 mg/dLHigh7.0 - 18.0 mg/dLNOTN HealthcareUrea nitrogen/Creatinine [Mass ratio]19.6 mg/mgNOTN Healthcare CLINISYNCNOTN HealthcareCNPNon 21-59-3550TREGJxlwrojyc ([facility]) MANOLO ROCHE ([id number]) 1935 M Date Time Provider Department 07/21/24 GAYE MATALeeann During your visit today, we recorded the following information about you: Allergies As of Date: 07/21/2024 (No Known Allergies) Date Reviewed: 07/06/2024 Reviewed by: Ayana Zavala APRN.SENIOR ELECTRONICS TECHNICIAN - Fully Assessed Reason for Visit: Appointment [...] 5,) crtg Change every 72 hours. - ysnmei-oxlhftry-fnjvehw (CREON) 24,000-76,000 -120,000 unit cpDR Take 2 [...] *06/23/2018 Encounter Status:Closed by GAYE MATA on 07/21/24[address] with Estimated Average Gluon 22-09-1080Izhjcgk [Mass/Vol]235 mg/dL NormalThe Maria Parham Health Physician GroupComment on above:Result Comment: PERFORMED BY: [address] [place] [address] PATHOLOGIST BIOMATHEMATICIAN ANDRE PERALTA M.D.Performed By: #### GLULS #### Point of Care testing ,HbA1c (Bld) [Mass fraction]9.8 %High4.3-5.6The [facility] Physician GroupComment on above:Result Comment: Increased risk for diabetes: 5.7 - 6.4 diabetes: >6.4 glycemic control for adults with diabetes: <7.0Performed By: #### GLULS #### Point of Care testing ,Acanthocytes [Presence] in Blood by Light microscopyOrdered By: Indra Guillory on 67-71-5338Vkfpuosdbmti LM Ql (Bld)Acanthocytes [Presence] in Blood by Light microscopyFirelands Regional Medical CenterAlanine aminotransferase [Enzymatic activity/volume] in Serum or PlasmaOrdered By: Indra Guillory on 82-87-7898GLI [Catalytic activity/Vol]Alanine aminotransferase [Enzymatic activity/volume] in Serum or Plasma7-52German HospitalAlbumin [Mass/volume] in Serum or Plasma by Bromocresol green (BCG) dye binding metho Ordered By: Indra Guillory on 67-16-3530Ejnsiqw BCG dye [Mass/Vol]Albumin [Mass/volume] in Serum or Plasma by Bromocresol green (BCG) dye binding metho 3.5-5.7FTrinity Health SystemAlkaline phosphatase [Enzymatic activity/volume] in Serum or PlasmaOrdered By: Indra Guillory on 07-17-2024 ALP [Catalytic activity/Vol]Alkaline phosphatase [Enzymatic activity/volume] in Serum or FmhbocEoow46-743KlfdiimuqGerman HospitalAnisocytosis LM Ql (Bld)Ordered By: Indra Guillory on 69-75-9844Vionhufjlpfv Ql (Bld) Anisocytosis [Presence] in Blood by Light microscopyGerman HospitalAspartate aminotransferase [Enzymatic activity/volume] in Serum or Plasma Ordered By: Indra Guillory on 69-34-5011ACN [Catalytic activity/Vol] Aspartate aminotransferase [Enzymatic activity/volume] in Serum or Afrmrk79-41 German HospitalBand form neutrophils/100 WBC Manual cnt (Bld) Ordered By: Indra Guillory on 49-70-4967Jpdg form neutrophils/100 WBC (Bld) Peripheral white blood cell differential % bands, microscopic exam0-5FTrinity Health SystemBasophils Auto (Bld) [#/Vol]Ordered By: Indra Guillory on 31-51-1880Vlaiejmbf (Bld) [#/Vol]Automated basophil countGerman HospitalBasophils/100 WBC Auto (Bld)Ordered By: Indra Guillory on 98-25-6622Lvcjlzkba/100 WBC (Bld)Automated basophil %German HospitalBilirubin.total [Mass/volume] in Serum or PlasmaOrdered By: Indra Guillory on 04-89-9591Gkhsevmdn [Mass/Vol]Bilirubin.total [Mass/volume] in Serum or Plasma0.3-1.0German HospitalBioFire Not Detectedon 02-68-1223VcuBswa Not DetectedNot detectedNormalNot DetecteThe [facility] Health Physician GroupComment on above:Result Comment: This is a duplicate RP2.1 COVID (PCR) result to be used for statistical tracking purpose only. PERFORMED BY: [facility] [address] [place] [address] PATHOLOGIST BIOMATHEMATICIAN ANDRE PERALTA M.D.Performed By: #### GLULS #### Point of Care testing ,Blood estimated average glucose determination by estimation from glycated hemoglobinOrdered By: Indra Guillory on 26-35-0372Dkrfjkh glucose Estimated from glycated hemoglobin (Bld) [Mass/Vol]Glucose mean value [Mass/volume] in Blood Estimated from glycated hemoglobinGerman HospitalBurr cells [Presence] in Blood by Light microscopyOrdered By: Indra Guillory on 46-97-9193Bfbk cells LM Ql (Bld)Chester cells [Presence] in Blood by Light microscopyGerman HospitalCOVID-19 Detected/Not DetectedOrdered By: Indra Guillory on 60-69-0259KUJX-CoV-2 (COVID-19) RNA ANASTASIA+non-probe Ql (Nph)Not detectedNot DetectTriHealthComment on above: This is a duplicate RP2.1 COVID (PCR) result to be used for statistical tracking purpose only.Calcium [Mass/volume] in Serum or PlasmaOrdered By: Indra Guillory on 07-75-3749Ctdkpth [Mass/Vol]Calcium [Mass/volume] in Serum or Plasma8.6-10.3FTrinity Health SystemCarbon dioxide, total [Moles/volume] in Serum or PlasmaOrdered By: Indra Guillory on 07-17-2024 CO2 [Moles/Vol]Carbon dioxide, total [Moles/volume] in Serum or Phkmrx49.0-31.0 German HospitalChloride [Moles/volume] in Serum or Plasma Ordered By: Indra Guillory on 44-37-1901Cqjjazcn [Moles/Vol]Chloride [Moles/volume] in Serum or LmjhllZel38-702ZppwyknzxGerman Hospital Comprehensive Metabolic Panelon 13-08-7457Fcofunp [Mass/Vol]3.6 g/dLNormal 3.5-5.7The [facility] Health Physician GroupComment on above:Performed By: #### GLULS #### Point of Care testing ,Albumin/Globulin [Mass ratio]1.2 {ratio}NormalThe [facility] Comment on above:Performed By: #### GLULS #### Point of Care testing ,ALP [Catalytic activity/Vol]136 U/CBlze39-294Reo [facility] Comment on above:Performed By: #### GLULS #### Point of Care testing ,ALT [Catalytic activity/Vol]18 U/LNormal7-52The [facility] Comment on above:Performed By: #### GLULS #### Point of Care testing ,Anion gap [Moles/Vol]11.6 mmol/LNormal6.0-15.0The [facility] Comment on above:Performed By: #### GLULS #### Point of Care testing ,AST [Catalytic activity/Vol]20 U/OWulddo28-30Bss [facility] Comment on above:Performed By: #### GLULS #### Point of Care testing ,Bilirubin [Mass/Vol]0.6 mg/dLNormal0.3-1.0The [facility] Health Physician GroupComment on above:Performed By: #### GLULS #### Point of Care testing ,Calcium [Mass/Vol]8.8 mg/dLNormal8.6-10.3The [facility] Health Physician GroupComment on above:Performed By: #### GLULS #### Point of Care testing ,Chloride [Moles/Vol]96 mmol/USwb54-349Vxz [facility] Physician GroupComment on above:Performed By: #### GLULS #### Point of Care testing ,CO2 [Moles/Vol]28.2 mmol/CMdarvc77.0-31.0The [facility] Health Physician GroupComment on above:Performed By: #### GLULS #### Point of Care testing ,Creatinine [Mass/Vol]1.03 mg/dLNormal0.70-1.30The [facility] Comment on above:Performed By: #### GLULS #### Point of Care testing ,Creatinine Clr Calc Vzdxibbd53.38NormMemorial Regional Hospital Physician GroupComment on above:Result Comment: PERFORMED BY: [facility] [place] [address] PATHOLOGIST BIOMATHEMATICIAN ANDRE PERALTA M.D.Performed By: #### GLULS #### Point of Care testing ,GFR/1.73 sq M.predicted MDRD (S/P/Bld) [Vol rate/Area]mL/min/{1.73_m2}NormalThe [facility] Health Physician GroupComment on above:Performed By: #### GLULS #### Point of Care testing ,Globulin (S) [Mass/Vol]3.0 g/dLNoUNC Health Blue Ridge - Valdese Physician GroupComment on above:Performed By: #### GLULS #### Point of Care testing ,Glucose [Mass/Vol]443 mg/dLSignificant change fh60-591Pho [facility] Physician GroupComment on above:Result [...] #### Point of Care testing ,Sodium [Moles/Vol]131 mmol/JKng103-664Rvx [facility] Physician GroupComment on above:Performed By: #### GLULS #### Point of Care testing ,Urea nitrogen [Mass/Vol]20 mg/dLNormal7-25The [facility] Health Physician GroupComment on above:Performed By: #### GLULS #### Point of Care testing ,Creatinine [Mass/volume] in Serum or PlasmaOrdered By: Indra Guillory on 20-53-5390Nyxgafeyri [Mass/Vol]Creatinine [Mass/volume] in Serum or Plasma 0.70-1.30German HospitalDiff and CBCon 97-74-4541Lswvckwnkkal [facility]Medical [facility] Clinic Physician GroupComment on above:Performed By: #### GLULS #### Point of Care testing ,Anisocytosis Ql (Bld)ModerateMedical Center Clinic Physician GroupComment on above:Performed By: #### GLULS #### Point of Care testing ,Band form neutrophils/100 WBC (Bld)1 %Normal0-5The [facility]ician [facility] Comment on above:Performed By: #### GLULS #### Point of Care testing ,Crenated RBCModerateMedical Center Clinic Physician GroupComment on above: Performed By: #### GLULS #### Point of Care testing ,Erythrocyte distribution width (RBC) [Ratio]19.7 %High12.0-14.8The [facility] Health Physician GroupComment on above:Performed By: #### GLULS #### Point of Care testing ,Helmet CellsSlightMedical Center Clinic Physician GroupComment on above:Performed By: #### GLULS #### Point of Care testing ,Hematocrit (Bld) [Volume fraction]37.8 %Low38.8-50.0The [facility] Health Physician GroupComment on above:Performed By: #### GLULS #### Point of Care testing ,Hemoglobin (Bld) [Mass/Vol]12.4 g/dLLow13.0-17.0[facility] Physician [facility] Comment on above:Performed By: #### GLULS #### Point of Care testing ,HypochromasiaMarkedMedical Center Clinic Physician GroupComment on above: Performed By: #### GLULS #### Point of Care testing ,Lymphocytes/100 WBC (Bld)18 %Ktfpxn92-42Zwq [facility] Physician GroupComment on above:Performed By: #### GLULS #### Point of Care testing ,MCH (RBC) [Entitic mass]26.3 pgLow27.5-35.2The [facility] Health Physician GroupComment on above:Performed By: #### GLULS #### Point of Care testing ,MCV (RBC) [Entitic vol]80.0 fLLow83.5-101The [facility] Health Physician GroupComment on above:Performed By: #### GLULS #### Point of Care testing ,Mean Corpuscular HGB Conc32.8 g/wAHulihr59.5-35.6The [facility] Comment on above:Performed By: #### GLULS #### Point of Care testing ,MicrocytosisSlightMedical Center Clinic Physician GroupComment on above:Performed By: #### GLULS #### Point of Care testing ,Monocytes/100 WBC (Bld)4 %Normal2-11The [facility] Health Physician GroupComment on above:Performed By: #### GLULS #### Point of Care testing ,Platelet EstimateNormalNormalMedical Center Clinic Physician GroupComment on above:Performed By: #### GLULS #### Point of Care testing ,Platelet mean volume (Bld) [Entitic vol]11.0 fLHigh6.6-10.1The [facility] Health Physician GroupComment on above:Performed By: #### GLULS #### Point of Care testing ,Platelet MorphologyNormalNormalMedical Center Clinic Physician GroupComment on above:Result Comment: PERFORMED BY: [facility] [address] [place] [address] PATHOLOGIST BIOMATHEMATICIAN ANDRE PERALTA M.D.Performed By: #### GLULS #### Point of Care testing ,Platelets (Bld) [#/Vol]229 10*3/tCRpyxes842-594DikMethodist [facility] Hospital Comment on above:Performed By: #### GLULS #### Point of Care testing ,PoikilocytosisMarkedMedical Center Clinic Physician GroupComment on above: Performed By: #### GLULS #### Point of Care testing ,PolychromasiaSlightNoUNC Health Blue Ridge - Valdese Physician GroupComment on above: Performed By: #### GLULS #### Point of Care testing ,RBC (Bld) [#/Vol]4.73 10*6/uLNormal3.90-5.60[facility] Physician [facility] Comment on above:Performed By: #### GLULS #### Point of Care testing ,SchistocytesModerateMedical Center Clinic Physician GroupComment on above: Performed By: #### GLULS #### Point of Care testing ,Segmented neutrophils/100 WBC (Bld)77 %Njxg70-00Rwd [facility] Comment on above:Performed By: #### GLULS #### Point of Care testing ,Target CellsModLee Memorial Hospital Physician GroupComment on above: Performed By: #### GLULS #### Point of Care testing ,WBC (Bld) [#/Vol]4.8 10*3/uLNormal4.1-10.5The [facility] Physician GroupComment on above:Performed By: #### GLULS #### Point of Care testing ,Eosinophils Auto (Bld) [#/Vol]Ordered By: Indra Guillory on 07-17-2024 Eosinophils (Bld) [#/Vol]Automated eosinophil countGerman HospitalEosinophils/100 WBC Auto (Bld)Ordered By: Indra Guillory on 31-90-4463Hbocbbtfcdf/100 WBC (Bld)Automated eosinophil %German HospitalErythrocyte distribution width Auto (RBC) [Ratio]Ordered By: Indra Guillory on 26-31-2278Hzxxgkrywvj distribution width (RBC) [Ratio] Erythrocyte distribution width [Ratio] by Automated qfluhTxfk81.0-14.8German HospitalErythrocyte morphology finding [Identifier] in Blood Ordered By: Indra Guillory on 36-07-7603CMT morphology finding Nom (Bld)RBC morphologyGerman HospitalGlobulin Calc (S) [Mass/Vol]Ordered By: Indra Guillory on 62-84-5168Hakboxsz (S) [Mass/Vol]Serum globulin measurement by calculation (mass/volume)German HospitalGlucose Glucometer (BldC) [Mass/Vol]Ordered By: Lisa Hidalgo on 97-32-3881Ccpbfcd [Mass/Vol]Capillary blood glucose measurement by glucometer (mass/volume) German HospitalComment on above:Random Glucose Reference Range is dependent on time and content of last meal. Glucose of more than 200 mg/dL in a nonstressed, ambulatory subject supports the diagnosis of Diabetes Mellitus.Glucose Poct Glucometerson 45-71-7786Qmroquc [Mass/Vol]299 mg/dLNormal The [facility] Physician GroupComment on above:Result Comment: Random Glucose Reference Range is dependent on time and content of last meal. Glucose of more than 200 mg/dL in a nonstressed, ambulatory subject supports the diagnosis of Diabetes Mellitus. PERFORMED BY: [place] [id number] PATHOLOGIST BIOMATHEMATICIAN ANDRE PERALTA M.D.Performed By: #### GLULS ####Point of Care testing, Glucose [Mass/Vol]341 mg/dLNoUNC Health Blue Ridge - Valdese Physician GroupComment on above: Result Comment: Random Glucose Reference Range is dependent on time and content of last meal. Glucose of more than 200 mg/dL in a nonstressed, ambulatory subject supports the diagnosis of Diabetes Mellitus. PERFORMED BY: [address] [place] [address] PATHOLOGIST BIOMATHEMATICIAN ANDRE PERALTA M.D.Performed By: #### GLULS #### Point of Care testing ,Glucose [Mass/Vol]386 mg/dLNoUNC Health Blue Ridge - Valdese Physician GroupComment on above: Result Comment: Random Glucose Reference Range is dependent on time and content of last meal. Glucose of more than 200 mg/dL in a nonstressed, ambulatory subject supports the diagnosis of Diabetes Mellitus. PERFORMED BY: [address] [address] PATHOLOGIST BIOMATHEMATICIAN ANDRE PERALTA M.D.Performed By: #### GLULS ####Point of Care testing, Myegpvf2VsllymTelMedical Center Clinic Physician GroupComment on above:Result Comment: Glu2: Will Repeat TestPerformed By: #### GLULS #### Point of Care testing ,Sturrgg0VRPV NOTIFY DR/KARINNorthfield City HospitalComment on above: Performed By: #### GLULS #### Point of Care testing ,Mondqob0Mlumraa MeterMedical Center Clinic Physician GroupComment on above:Result Comment: PERFORMED BY: [place] [address] PATHOLOGIST BIOMATHEMATICIAN ANDRE PERALTA M.D.Performed By: #### GLULS #### Point of Care testing ,Glucose [Mass/Vol]406 mg/dLOff scale [facility] Physician GroupComment on above:Result Comment: Random Glucose Reference Range is dependent on time and content of last meal. Glucose of more than 200 mg/dL in a nonstressed, ambulatory subject supports the diagnosis of Diabetes Mellitus.Performed By: #### GLULS #### Point of Care testing ,Fphtizl4HwjfzrW[address] Physician GroupComment on above:Result Comment: Glu2: WILL NOTIFY DR/RN PERFORMED BY: [place] [address] PATHOLOGIST BIOMATHEMATICIAN ANDRE PERALTA M.D.Performed By: #### GLULS #### Point of Care testing ,Glucose [Mass/Vol]451 mg/dLOff scale [facility] Physician GroupComment on above:Result Comment: Random Glucose Reference Range is dependent on time and content of last meal. Glucose of more than 200 mg/dL in a nonstressed, ambulatory subject supports the diagnosis of Diabetes Mellitus.Performed By: #### GLULS #### Point of Care testing ,Tsolhvs7PmenanJdh[address] Physician GroupCompranay on above:Result Comment: Glu2: Will Repeat Test PERFORMED BY: [place] [address] PATHOLOGIST BIOMATHEMATICIAN ANDRE PERALTA M.D.Performed By: #### GLULS #### Point of Care testing ,Glucose [Mass/Vol]444 mg/dLOff scale [facility] Physician GroupComment on above:Result Comment: Random Glucose Reference Range is dependent on time and content of last meal. Glucose of more than 200 mg/dL in a nonstressed, ambulatory subject supports the diagnosis of Diabetes Mellitus.Performed By: #### GLULS #### Point of Care testing ,Glucose [Mass/volume] in Serum or PlasmaOrdered By: Indra Guillory on 59-31-3151Wvalpmx [Mass/Vol]Glucose [Mass/volume] in Serum or PlasmaInvalid Interpretation Dpti94-174JiniektnxGerman HospitalComment on above: Delta: 191 on 07/16/24-0ADA recommended reference rangeRandom Glucose Reference Range is dependent on time and content of last meal. Glucose of more than 200 mg/dL in a nonstressed, ambulatory subject supports the diagnosis of Diabetes Mellitus.Helmet cells [Presence] in Blood by Light microscopyOrdered By: Indra Guillory on 68-10-4742Lmztqx cells LM Ql (Bld)Helmet cell detectionGerman HospitalHematocrit Auto (Bld) [Volume fraction]Ordered By: Indra Guillory on 87-09-0790Shwvybyrnr (Bld) [Volume fraction]Hematocrit [Volume Fraction] of Blood by Automated qmrlhUbx94.8-50.0 German HospitalHemoglobin A1c/Hemoglobin.total in BloodOrdered By: Indra Guillory on 24-90-2758JuN7a (Bld) [Mass fraction]Hemoglobin A1c percentageHigh4.3-5.6FTrinity Health SystemComment on above:Increased risk for diabetes: 5.7 - 6.4diabetes: >6.4glycemic control for adults with diabetes: <7.0Hemoglobin [Mass/volume] in BloodOrdered By: Indra Guillory on 86-53-6941Pybsyuouls (Bld) [Mass/Vol]Hemoglobin [Mass/volume] in RbdrdMnn77.0-17.0German HospitalHypochromia LM Ql (Bld)Ordered By: Idnra Guillory on 69-65-2610Illkznklkqf Ql (Bld)Hypochromia [Presence] in Blood by Light microscopyGerman HospitalINR in Platelet poor plasma by Coagulation assayOrdered By: Indra Guillory on 02-38-1880BET Coag (PPP) [Relative time]INR in Platelet poor plasma by Coagulation assay German HospitalComment on above:INR Therapeutic Range A) Pre- [...] [id number] Received: 07/17/24 Status: LYUDMILA Gómez Num: [id number] Spec Type: Impression Subm Dr: Indra Guillory MD Tissues: PATHPER Procedures: PATHREVIEW Age/ Patient Sex Location Account Attending Physician Manolo Roche 89/M 4N [id number] Lisa Hidalgo MD SPEC NUM: [id number] RECD: 07/17/24 STATUS: LYUDMILA REQ NUM: [id number] MARANDA: 07/17/24 DR: Indra Guillory MD ENTERED: 07/17/[address]: SPEC TYPE: Impression DEPT: PA ORDERED: PATHREVIEW ORDERED: PATHREVIEW Pathologist Review Abnormal [...] CBC laboratory follow- ups are also suggested [facility] [id number] Specimen: Received: 07/17/24 Status: LOVELeeann Gómez Num: [id number] Spec Type: Impression Subm Dr: Indra Guillory MD Tissues: PATHPER Procedures: PATHREVIEW Patient: Manolo Roche [id number] (Continued) Specimen: Received: 07/17/24 (Continued) Signed (signature on file) Donovan Bunch MD 07/17/24 1128 Specimen: Received: 07/17/24 Status: LYUDMILA Gómez Num: [id number] Spec Type: Impression Subm Dr: Indra Guillory MD Tissues: PATHPER Procedures: PATHREVIEW Patient: Manolo Roche [id number] (Continued) Specimen: [id number] Received: 07/17/24-851 (Continued) CBC Date Time Test Result Flag (u) Normal Range 07/16/24 1230 Neut % (Auto) 64.8 . % Lymp % (Auto) 18.9 . % [place] % (Auto) 12.8 . % Eos % (Auto) 2.7 . % Baso % (Auto) 0.8 . % NRBC% 0.2 0-0.5 /100 WBC Neut # (Auto) 4.7 1.8-7.7 x10E3/uL Lymph # (Auto) 1.4 1.00-4.8 x10E3/uL [place] # (Auto) 0.9 H 0.0-0.8 x10E3/uL Eos [...] 1 0-5 % Lymph 18 18-42 % [place] 4 2-11 % Polychrom Slight Hypochrom Marked Poik Marked Aniso Moderate Micro Slight Schisto Moderate Target Moderate Helmet Cells Slight Crenated RBC Moderate Acantho Marked Plt Est Normal Normal Plt Morphology Normal Normal Specimen: [id number] Received: 07/17/24 Status: LYUDMILA Gómez Num: [id number] Spec Type: Impression Subm Dr: Indra Guillory MD Tissues: PATHPER Procedures: PATHREVIEW Patient: Manolo Roche [id number] (Continued) Signed (signature on file) IreneSalo Julio C (more content not included)...NormalJackson South Medical Center Physician GroupLeukocytes [#/volume] corrected for nucleated erythrocytes in Blood by Automated counOrdered By: Indra Guillory on 21-14-0423CPF corrected for nucl RBC Auto (Bld) [#/Vol] Leukocytes [#/volume] corrected for nucleated erythrocytes in Blood by Automated coun4.1-10.5FTrinity Health SystemLymphocytes Auto (Bld) [#/Vol] Ordered By: Indra Guillory on 54-38-1652Qbuhexmemhq (Bld) [#/Vol] Lymphocytes [#/volume] in Blood by Automated countGerman HospitalLymphocytes/100 WBC Auto (Bld)Ordered By: Indra Guillory on 09-96-3599Fasapsqqdct/100 WBC (Bld)Lymphocytes/100 leukocytes in Blood by Automated countGerman HospitalLymphocytes/100 WBC Manual cnt (Bld)Ordered By: Indra Guillory on 19-75-8488Objvklgwqax/100 WBC (Bld) Lymphocytes/100 leukocytes in Blood by Manual talga90-50AzqnqpxpjMarietta Osteopathic Clinic Auto (RBC) [Entitic mass]Ordered By: Indra Guillory on 24-90-6359VET (RBC) [Entitic mass]MCH [Entitic mass] by Automated countLow 27.5-35.2FTrinity Health SystemMCHC Auto (RBC) [Mass/Vol]Ordered By: Indra Guillory on 98-12-5387DVMY (RBC) [Mass/Vol]MCHC [Mass/volume] by Automated count32.5-35.6FOur Lady of Mercy HospitalV Auto (RBC) [Entitic vol]Ordered By: Indra Guillory on 06-95-0528JOP (RBC) [Entitic vol]MCV [Entitic volume] by Automated nbofbYvj39.5-101[facility] Microcytes LM Ql (Bld)Ordered By: Indra Guillory on 34-35-5222Ergmkpsvyp Ql (Bld)Microcytes [Presence] in Blood by Light microscopyGerman HospitalMonocytes Auto (Bld) [#/Vol]Ordered By: Indra Guillory on 07-84-4290Uttvgsfpf (Bld) [#/Vol]Automated blood monocyte countGerman HospitalMonocytes/100 WBC Auto (Bld)Ordered By: Indra Guillory on 67-14-1639Hynbpoxmv/100 WBC (Bld)Automated monocyte %German HospitalMonocytes/100 WBC Manual cnt (Bld)Ordered By: Indra Guillory on 52-83-2670Loitqpqlc/100 WBC (Bld)Monocytes/100 leukocytes in Blood by Manual count2-11German HospitalNeutrophils Auto (Bld) [#/Vol]Ordered By: Indra Guillory on 65-16-5884Njltpgwkgoy (Bld) [#/Vol] Neutrophils [#/volume] in Blood by Automated countGerman HospitalNeutrophils/100 WBC Auto (Bld)Ordered By: Indra Guillory on 98-60-7144Zwfnptfxfts/100 WBC (Bld)Automated neutrophil %German HospitalNo Panel InformationOrdered By: Indra Guillory on 07-17-2024 Bedside Glucose #[address]/[facility] Bedside Glucose #3 CommentCleaned meterGerman HospitalBedside Glucose CommentSee commentGerman HospitalComment on above: Glu2: Will Repeat TestEstimated GFR (CKD-EPI)> 60.0 mL/MinGerman HospitalPharmacy Creatinine Clearance (Chem45.38UC Medical Centerlides for Pathologist ReviewOrdered path reviewGerman HospitalNucleated erythrocytes [Presence] in Blood by Automated count Ordered By: Indra Guillory on 45-93-6681Qgtocludj RBC Auto Ql (Bld) Nucleated erythrocytes [Presence] in Blood by Automated countGerman HospitalPartial Thromboplastin Timeon 63-09-0770dHYI Coag (Bld) [Time]30.6 cKihdut75.1-36.5The [facility] Health Physician GroupComment on above:Result Comment: A hematocrit value greater than 55% may lead to inaccurate results in coagulation testing. Patients having hematocrit values >55% require a special collection tube for coagulation studies. Please contact the laboratory at [phone] for redraw instructions. PERFORMED BY: [address] [address] PATHOLOGIST BIOMATHEMATICIAN ANDRE PERALTA M.D.Performed By: #### GLULS #### Point of Care testing ,Pathologist Slide Reviewon 11-71-0539Lxrrskngawo Slide ReviewOrdered Path ReviewNoUNC Health Blue Ridge - Valdese Physician GroupComment on above:Result Comment: PERFORMED BY: [address] [place] [address] PATHOLOGIST BIOMATHEMATICIAN ANDRE PERALTA M.D.Performed By: #### GLULS #### Point of Care testing ,Pathology study report documentOrdered By: Donovan Bunch on 07-17-2024 Pathology studyGerman Hospital Other Platelet adequacy [Presence] in Blood by Light microscopyOrdered By: Indra Guillory on 62-60-0904Slzrskyof LM Ql (Bld) Platelet adequacy [Presence] in Blood by Light microscopyNoKettering Health DaytonPlatelet mean volume Auto (Bld) [Entitic vol]Ordered By: Indra Guillory on 63-87-3996Unezlbpg mean volume (Bld) [Entitic vol] Platelet mean volume [Entitic volume] in Blood by Automated countHigh6.6-10.1 German HospitalPlatelet morphology finding [Identifier] in BloodOrdered By: Indra Guillory on 17-88-0313Efrnxhps morphology finding Nom (Bld)Platelet morphology finding [Identifier] in BloodNoKettering Health DaytonPlatelets Auto (Bld) [#/Vol]Ordered By: Indra Guillory on 56-33-4229Yenpizawl (Bld) [#/Vol]Platelets [#/volume] in Blood by Automated -289JtsoftxooGerman HospitalPoikilocytosis [Presence] in Blood by Light microscopyOrdered By: Indra Guillory on 07-17-2024 Poikilocytosis LM Ql (Bld)Poikilocytosis [Presence] in Blood by Light microscopy German HospitalPolychromasia [Presence] in Blood by Light microscopyOrdered By: Indra Guillory on 02-56-4272Qvemomooxkwgb LM Ql (Bld) Polychromasia [Presence] in Blood by Light microscopyGerman HospitalPotassium [Moles/volume] in Serum or PlasmaOrdered By: Indra Guillory on 95-69-9142Cgvpilmxz [Moles/Vol]Potassium [Moles/volume] in Serum or Plasma 3.5-5.1FTrinity Health SystemProtein [Mass/volume] in Serum or Plasma Ordered By: Indra Guillory on 26-81-8121Dxizijf [Mass/Vol]Protein [Mass/volume] in Serum or Plasma6.4-8.9[facility] Prothrombin Time INRon 13-36-1091PMF Coag (PPP) [Relative time]1.3 {INR}Normal The Maria [...] coagulation studies. Please contact the laboratory at [phone] for redraw instructions.Performed By: #### GLULS #### Point of Care testing ,Prothrombin time (PT)Ordered By: Indra Guillory on 63-40-2606LK Coag (PPP) [Time]Prothrombin time (PT)High9.0-12.9German HospitalComment on above:A hematocrit value greater than 55% may lead to inaccurate results in coagulation testing. Patientshaving hematocrit values >55% require a special collection tube for coagulation studies. Please contact the laboratory at [phone] for redraw instructions.RBC Auto (Bld) [#/Vol]Ordered By: Indra Guillory on 09-60-8346MLL (Bld) [#/Vol]Erythrocytes [#/volume] in Blood by Automated count3.90-5.60German HospitalRespiratory (Upper) Panel, PCRon 13-65-9766Idqfbaqomvq (Upper) Panel, PCRResults called at 0548 on [...] Influenza A H3 Blank Space PERFORMED BY: [facility] [address] [place] [address] PATHOLOGIST BIOMATHEMATICIAN ANDRE PERALTA M.D.NormalThe Maria [facility] Health Physician GroupComment on above: Performed By: #### GLULS #### Point of Care testing ,Respiratory pathogens DNA and RNA panel - Nasopharynx by ANASTASIA with non-probe detectionOrdered By: Indra Guillory on 04-00-9947Hmzintbcjqk pathogens DNA and RNA panel ANASTASIA+non-probe (Nph)Respiratory pathogens DNA and RNA panel - Nasopharynx by ANASTASIA with non-probe detectionGerman Hospital Respiratory pathogens DNA and RNA panel ANASTASIA+non-probe (Nph)Respiratory pathogens DNA and RNA panel - Nasopharynx by ANASTASIA with non-probe detectionUC Medical Centerchistocytes [Presence] in Blood by Light microscopy Ordered By: Indra Guillory on 02-97-8656Kglnfhcrbzxr LM Ql (Bld) Schistocytes [Presence] in Blood by Light microscopyUC Medical Centeregmented neutrophils/100 WBC Manual cnt (Bld)Ordered By: Indra Guillory on 02-04-3509Zbskbgmzl neutrophils/100 WBC (Bld)Manual blood segmented neutrophils/100 yjvhcdivexQifg10-10GmpjkqwcdUC Medical Centererum or plasma albumin/globulin mass ratioOrdered By: Indra Guillory on 07-17-2024 Albumin/Globulin [Mass ratio]Serum or plasma albumin/globulin mass ratio UC Medical Centererum or plasma anion gap determinationOrdered By: Indra Guillory on 06-68-8648Ehykx gap [Moles/Vol]Serum or plasma anion gap determination6.0-15.0UC Medical Centerodium [Moles/volume] in Serum or PlasmaOrdered By: Indra Guillory on 33-55-4429Fucjyd [Moles/Vol]Sodium [Moles/volume] in Serum or AseepkOpl124-439XxmbwnmbcGerman HospitalTarget cells [Presence] in Blood by Light microscopyOrdered By: Indra Guillory on 23-18-5140Ubyqlc cells LM Ql (Bld)Target cellsGerman HospitalUrea nitrogen [Mass/volume] in Serum or PlasmaOrdered By: Indra Guillory on 18-23-8684Sgmv nitrogen [Mass/Vol]Urea nitrogen [Mass/volume] in Serum or Plasma7German HospitalWBC Auto (Bld) [#/Vol]Ordered By: Indra Guillory on 15-00-2943VMQ (Bld) [#/Vol] Leukocytes [#/volume] in Blood by Automated count4.1-10.5FTrinity Health SystemaPTT in Platelet poor plasma by Coagulation assayOrdered By: Indraalexandria Guillory on 23-73-8905mTYX Coag (PPP) [Time]Activated partial thromboplastin time (aPTT) in platelet poor plasma by coagulation a25.1-36.5 German HospitalComment on above:A hematocrit value greater than 55% may lead to inaccurate results in coagulation testing. Patientshaving hematocrit values >55% require a special collection tube for coagulation studies. Please contact the laboratory at [phone] for redraw instructions. B-Type Natriuretic Peptideon 76-28-0325Usiintlldqs peptide B (Bld) [Mass/Vol] 2052.0 pg/mLHigh5-100The [facility] Health Physician GroupComment on above:Result Comment: PERFORMED BY: [facility] [address] [place] [address] PATHOLOGIST BIOMATHEMATICIAN ANDRE PERALTA M.D.Performed By: #### PT, BMP, BNP, HS TROP, CK, CBC ####[facility] [address] [place] [address] USABasic Metabolic Panelon 20-99-2254Noddn gap [Moles/Vol]10.2 mmol/LNormal6.0-15.0The [facility] Physician [facility] CentralComment on above:Performed By: #### PT, BMP, BNP, HS TROP, CK, CBC ####[place] [address] [place] [address] USACalcium [Mass/Vol]8.8 mg/dLNormal8.6-10.3The [facility] Comment on above:Performed By: #### PT, BMP, BNP, HS TROP, CK, CBC ####[place] [address] USAChloride [Moles/Vol] 99 mmol/AOygsgl54-788Qip [facility] Physician [facility] Health CentralComment on above:Performed By: #### PT, BMP, BNP, HS TROP, CK, CBC ####[place] [address] USACO2 [Moles/Vol]28.0 mmol/JCxjyog59.0-31.0The [facility] Health Physician GroupComment on above:Performed By: #### PT, BMP, BNP, HS TROP, CK, CBC ####[place] [address] USACreatinine [Mass/Vol]0.82 mg/dLNormal0.70-1.30The [facility] Physician [facility] Health CentralComment on above:Performed By: #### PT, BMP, BNP, HS TROP, CK, CBC ####[place] [address] [place] Creatinine Clr Calc Tlgwosok34.91NormalThe [facility] Physician [facility] Health CentralComment on above:Result Comment: PERFORMED BY: [facility] [address] [place] [address] PATHOLOGIST BIOMATHEMATICIAN ANDRE PERALTA M.D.Performed By: #### PT, BMP, BNP, HS TROP, CK, CBC ####[place] [address] [place] GFR/1.73 sq M.predicted MDRD (S/P/Bld) [Vol rate/Area]mL/min/{1.73_m2}NormalThe [facility] Health SystemComment on above:Performed By: #### PT, BMP, BNP, HS TROP, CK, CBC ####[place] [address] USAGlucose [Mass/Vol]191 mg/vRKupa90-333Dwd [facility] Physician [facility] Comment on above:Result Comment: Random Glucose Reference Range is dependent on time and content of last meal. Glucose of more than 200 mg/dL in a nonstressed, ambulatory subject supports the diagnosis of Diabetes Mellitus. ADA recommended reference rangePerformed By: #### PT, BMP, BNP, HS TROP, CK, CBC ####[place] [address] [place] Potassium [Moles/Vol]4.2 mmol/LNormal3.5-5.1The [facility] Health Physician GroupComment on above:Performed By: #### PT, BMP, BNP, HS TROP, CK, CBC ####[place] [address] USASodium [Moles/Vol]133 mmol/ARdf920-985Qrn [facility] Health Physician GroupComment on above:Performed By: #### PT, BMP, BNP, HS TROP, CK, CBC ####[address] [place] [address] USAUrea nitrogen [Mass/Vol]18 mg/dLNormal7-25The [facility] Health Physician GroupComment on above:Performed By: #### PT, BMP, BNP, HS TROP, CK, CBC ####[place] [address] USABasophils Auto (Bld) [#/Vol]Ordered By: PROVIDER TEMP on 07-16-2024 Basophils (Bld) [#/Vol]Automated basophil count0.0-0.2FTrinity Health SystemBasophils/100 WBC Auto (Bld)Ordered By: PROVIDER TEMP on 07-16-2024 Basophils/100 WBC (Bld)Automated basophil %.German HospitalCT angio chest PE protocolon 10-77-1871HT angio chest PE protocolST. [facility]IZABETH [facility] Main [place] [address] [place] [address] CT Scan Report Signed Patient: Manolo Roche MR#: [id number] 353 : 1935 Acct:[id number] Age/Sex: 89 / M ADM Date: 07/16/24 Loc: ER Room: Type: [facility] ER Attending Dr: Copies to: Bertin [...] Sergei Valentin M.D.07/16/2024 4:48 PM Dictation Location: [place] [address] Transcribed By: ERIBERTO 07/16/24 7578 Dictated By: Sergei Valentin II, MD 07/16/24 1636 Signed By: 07/16/24 6288[facility] Physician GroupCalcium [Mass/volume] in Serum or PlasmaOrdered By: PROVIDER TEMP on 55-44-9249Qexefjq [Mass/Vol]Calcium [Mass/volume] in Serum or Plasma8.6-10.3FTrinity Health SystemCarbon dioxide, total [Moles/volume] in Serum or PlasmaOrdered By: PROVIDER TEMP on 22-81-6679ND9 [Moles/Vol]Carbon dioxide, total [Moles/volume] in Serum or Plasma 21.0-31.0German HospitalChloride [Moles/volume] in Serum or PlasmaOrdered By: PROVIDER TEMP on 56-23-7129Fktfbotv [Moles/Vol]Chloride [Moles/volume] in Serum or Glzuow66-436KcogojpshGerman HospitalComplete Blood Count Auto Diffon 18-45-1456Zbsnojsat (Bld) [#/Vol]0.1 10*3/uLNormal 0.0-0.2The [facility] Health Physician GroupComment on above:Result Comment: PERFORMED BY: [facility] [address] [place] [address] PATHOLOGIST BIOMATHEMATICIAN ANDRE PERALTA M.D.Performed By: #### PT, BMP, BNP, HS TROP, CK, CBC ####[place] [address] [place] Basophils/100 WBC (Bld)0.8 %Normal.The [facility] Health Physician GroupComment on above:Performed By: #### PT, BMP, BNP, HS TROP, CK, CBC ####[place] [address] USAEosinophils (Bld) [#/Vol]0.2 10*3/uLNormal0.0-0.45The [facility] Health Physician GroupComment on above:Performed By: #### PT, BMP, BNP, HS TROP, CK, CBC ####[place] [address] USAEosinophils/100 WBC (Bld)2.7 %Normal.The [facility] Health Physician GroupComment on above:Performed By: #### PT, BMP, BNP, HS TROP, CK, CBC ####[place] [address] USAErythrocyte distribution width (RBC) [Ratio]19.9 %High12.0-14.8The [facility] Health Physician GroupComment on above:Performed By: #### PT, BMP, BNP, HS TROP, CK, CBC ####[place] [address] USAHematocrit (Bld) [Volume fraction]35.8 %Low38.8-50.0The [facility] Health Physician GroupComment on above:Performed By: #### PT, BMP, BNP, HS TROP, CK, CBC ####[address] Hemoglobin (Bld) [Mass/Vol]11.7 g/dLLow13.0-17.0The [facility] Comment on above:Performed By: #### PT, BMP, BNP, HS TROP, CK, CBC ####[place] [address] USALymphocytes (Bld) [#/Vol]1.4 10*3/uLNormal1.00-4.8The [facility] Health Physician GroupComment on above: Performed By: #### PT, BMP, BNP, HS TROP, CK, CBC ####[place] [address] USALymphocytes/100 WBC (Bld)18.9 %Normal .The [facility] Health Physician GroupComment on above:Performed By: #### PT, BMP, BNP, HS TROP, CK, CBC ####[address] StreetH (RBC) [Entitic mass]25.9 pgLow27.5-35.2The [facility] Health Physician GroupComment on above:Performed By: #### PT, BMP, BNP, HS TROP, CK, CBC ####[address] StreetMCV (RBC) [Entitic vol]79.7 fLLow83.5-101The [facility] Health Physician GroupComment on above:Performed By: #### PT, BMP, BNP, HS TROP, CK, CBC ####[place] [id number] USAMean Corpuscular HGB Conc32.5 g/eWZnifoh74.5-35.6The [facility] Health Physician GroupComment on above:Performed By: #### PT, BMP, BNP, HS TROP, CK, CBC ####[place] [address] USAMonocytes (Bld) [#/Vol]0.9 10*3/uLHigh0.0-0.8The [facility] Health Physician GroupComment on above:Performed By: #### PT, BMP, BNP, HS TROP, CK, CBC ####[place] [address] USAMonocytes/100 WBC (Bld)17.82 %Normal0.00-20.00The [facility] Health Physician GroupComment on above:Result Comment: For adults in ED, MDW > 20.0 may be associated with a higher risk of sepsis during the first 12 hrs of hospital admissionPerformed By: #### PT, BMP, BNP, HS TROP, CK, CBC ####[place] [address] USAMonocytes/100 WBC (Bld)12.8 %Normal.The [facility] Health Physician GroupComment on above:Performed By: #### PT, BMP, BNP, HS TROP, CK, CBC ####[place] [address] [place] Neutrophils (Bld) [#/Vol]4.7 10*3/uLNormal1.8-7.7The [facility] Comment on above:Performed By: #### PT, BMP, BNP, HS TROP, CK, CBC ####[place] [id number] USANeutrophils/100 WBC (Bld)64.8 %Normal.The [facility] Health Physician GroupComment on above:Performed By: #### PT, BMP, BNP, HS TROP, CK, CBC ####[place] [id number] USANRBC%0.2 /100{WBC}Normal0-0.5The [facility] Health Physician GroupComment on above:Performed By: #### PT, BMP, BNP, HS TROP, CK, CBC ####[address] Platelet mean volume (Bld) [Entitic vol]10.9 fLHigh6.6-10.1The [facility] Health Physician GroupComment on above:Performed By: #### PT, BMP, BNP, HS TROP, CK, CBC ####[address] Platelets (Bld) [#/Vol]210 10*3/oRFpwvbn686-680Flr [facility] Comment on above:Performed By: #### PT, BMP, BNP, HS TROP, CK, CBC ####[place] [address] USARBC (Bld) [#/Vol] 4.50 10*6/uLNormal3.90-5.60The [facility] Health Physician GroupComment on above: Performed By: #### PT, BMP, BNP, HS TROP, CK, CBC ####[place] [address] USAWBC (Bld) [#/Vol]7.2 10*3/uLNormal 4.1-10.5The [facility] Health Physician GroupComment on above:Performed By: #### PT, BMP, BNP, HS TROP, CK, CBC ####[place] [address] USACreatine Kinaseon 93-52-9029NQ [Catalytic activity/Vol] 136 U/HHcsjov94-123Aym [facility] Health Physician GroupComment on above:Performed By: #### PT, BMP, BNP, HS TROP, CK, CBC ####[place] [address] USACreatine kinase [Enzymatic activity/volume] in Serum or PlasmaOrdered By: PROVIDER TEMP on 60-52-2638GA [Catalytic activity/Vol] Creatine kinase [Enzymatic activity/volume] in Serum or Iuzawt94-946HeifashdcGerman HospitalCreatinine [Mass/volume] in Serum or PlasmaOrdered By: PROVIDER TEMP on 32-63-6344Zjxkzoamvw [Mass/Vol]Creatinine [Mass/volume] in Serum or Plasma0.70-1.30German HospitalECG 12 lead ECGon 92-97-3853IOW [address] [place] [address] Electrocardiograph Report Signed Patient: Manolo Roche MR#: [id number] 353 : 1935 Acct:[id number] Age/Sex: 89 / M ADM Date: 07/16/24 Loc: Room: [address] [place] [address] Type: ADM INOo Attending Dr: Indra Guillory [...] Atrial-paced rhythm Confirmed by Bertin Smith DO ([id number]) on 07/16/2024 8:00:21 PM Referred By: Electronically Signed By: Bertin Smith DO Transcribed By: MUS Signed By Bertin Smith DO [address] [place] [address] Physician GroupECG 12 lead [facility] Main [place] [id number] Electrocardiograph Report Signed Patient: Manolo Roche MR#: [id number] 353 : 1935 Acct:[id number] Age/Sex: 89 / M ADM Date: 07/16/24 Loc: 3T Room: [address] [place] [address] Type: ADM INOo Attending Dr: Indra Guillory [...] Atrial-paced rhythm Confirmed by Bertin Smith DO ([id number]) on 07/16/2024 8:01:11 PM Referred By: Electronically Signed By: Bertin Smith DO Transcribed By: MUS Signed By Bertin Smith DO [address] [place] [address] Physician GroupEosinophils Auto (Bld) [#/Vol] Ordered By: PROVIDER TEMP on 59-04-5104Kxuxmtccoek (Bld) [#/Vol]Automated eosinophil count0.0-0.45German HospitalEosinophils/100 WBC Auto (Bld)Ordered By: PROVIDER TEMP on 84-87-5493Ehapbfawyuo/100 WBC (Bld) Automated eosinophil %.German HospitalErythrocyte distribution width Auto (RBC) [Ratio]Ordered By: PROVIDER TEMP on 48-12-3987Rjtotcoaqbh distribution width (RBC) [Ratio]Erythrocyte distribution width [Ratio] by Automated tedmvDfag90.0-14.8German HospitalGlucose Glucometer (BldC) [Mass/Vol]Ordered By: Indra Guillory on 15-09-4994Svxhwdg [Mass/Vol] Capillary blood glucose measurement by glucometer (mass/volume)German HospitalComment on above:Random Glucose Reference Range is dependent on time and content of last meal. Glucose of more than 200 mg/dL in a nonstressed, ambulatory subject supports the diagnosis of Diabetes Mellitus. Glucose Poct Glucometerson 19-45-7251Lrnhvnt [Mass/Vol]327 mg/dLMedical Center Clinic Physician GroupComment on above:Result Comment: Random Glucose Reference Range is dependent on time and content of last meal. Glucose of more than 200 mg/dL in a nonstressed, ambulatory subject supports the diagnosis of Diabetes Mellitus. PERFORMED BY: [facility] [address] [place] [address] PATHOLOGIST BIOMATHEMATICIAN MOHAMED M EL-FAKHARANY M.D.Performed By: #### GLULS #### Point of Care testing ,Glucose [Mass/volume] in Serum or PlasmaOrdered By: PROVIDER TEMP on 07-16-2024 Glucose [Mass/Vol]Glucose [Mass/volume] in Serum or DarkcqRyms76-821TdxjzyxwkGerman HospitalComment on above:ADA recommended reference rangeRandom Glucose Reference Range is dependent on time and content of last meal. Glucose of more than 200 mg/dL in a nonstressed, ambulatory subject supports the diagnosisof Diabetes Mellitus.Hematocrit Auto (Bld) [Volume fraction]Ordered By: PROVIDER TEMP on 38-33-5811Fmucdumzgu (Bld) [Volume fraction]Hematocrit [Volume Fraction] of Blood by Automated vhqvcCqt49.8-50.0German HospitalHemoglobin [Mass/volume] in BloodOrdered By: PROVIDER TEMP on 07-16-2024 Hemoglobin (Bld) [Mass/Vol]Hemoglobin [Mass/volume] in DfnruAni86.0-17.0 German HospitalINR in Platelet poor plasma by Coagulation assayOrdered By: PROVIDER TEMP on 97-38-2230BAX Coag (PPP) [Relative time]INR in Platelet poor plasma by Coagulation assayGerman Hospital Comment on above:INR Therapeutic Range A) [...] by Automated counOrdered By: PROVIDER TEMP on 53-42-1570GNT corrected for nucl RBC Auto (Bld) [#/Vol]Leukocytes [#/volume] corrected for nucleated erythrocytes in Blood by Automated coun4.1-10.5FTrinity Health System Lymphocytes Auto (Bld) [#/Vol]Ordered By: PROVIDER TEMP on 79-02-6263Hefihonkwle (Bld) [#/Vol]Lymphocytes [#/volume] in Blood by Automated count1.00-4.8 German HospitalLymphocytes/100 WBC Auto (Bld)Ordered By: PROVIDER TEMP on 06-33-9255Kfxjgxydzbf/100 WBC (Bld)Lymphocytes/100 leukocytes in Blood by Automated count.German HospitalMCH Auto (RBC) [Entitic mass]Ordered By: PROVIDER TEMP on 35-33-7348GWC (RBC) [Entitic mass]MCH [Entitic mass] by Automated bkclnAmd79.5-35.2FTrinity Health System MCHC Auto (RBC) [Mass/Vol]Ordered By: PROVIDER TEMP on 37-29-1644EXMC (RBC) [Mass/Vol]MCHC [Mass/volume] by Automated count32.5-35.6FTrinity Health SystemMCV Auto (RBC) [Entitic vol]Ordered By: PROVIDER TEMP on 20-14-5788OHQ (RBC) [Entitic vol]MCV [Entitic volume] by Automated countLow 83.5-101German HospitalMonocyte distribution width [Entitic volume] in Blood by AutomatedOrdered By: PROVIDER TEMP on 49-69-8899Cjrzgtxs distribution width Auto (Bld) [Entitic vol]Monocyte distribution width [Entitic volume] in Blood by Automated0.00-20.00German HospitalComment on above:For adults in ED, MDW > 20.0 may be associated with a higher risk of sepsis during the first 12 hrs of hospital admissionMonocytes Auto (Bld) [#/Vol] Ordered By: PROVIDER TEMP on 11-16-1498Wljfgdsdq (Bld) [#/Vol]Automated blood monocyte countHigh0.0-0.8German HospitalMonocytes/100 WBC Auto (Bld)Ordered By: PROVIDER TEMP on 19-11-3567Igzebqplg/100 WBC (Bld)Automated monocyte %.German HospitalNatriuretic peptide B [Mass/Vol] Ordered By: PROVIDER TEMP on 97-85-6458Yeugrfuzbxx peptide B (Bld) [Mass/Vol]BNP ser/plasHigh5-100German HospitalNeutrophils Auto (Bld) [#/Vol]Ordered By: PROVIDER TEMP on 29-82-7107Vyownunpkmf (Bld) [#/Vol] Neutrophils [#/volume] in Blood by Automated count1.8-7.7FTrinity Health SystemNeutrophils/100 WBC Auto (Bld)Ordered By: PROVIDER TEMP on 79-68-4243Hwuevfgocfd/100 WBC (Bld)Automated neutrophil %.German HospitalNo Panel InformationOrdered By: PROVIDER TEMP on 07-16-2024 Estimated GFR (CKD-EPI)> 60.0 mL/MinGerman HospitalPharmacy Creatinine Clearance (Chem60.91German HospitalNucleated erythrocytes [Presence] in Blood by Automated countOrdered By: PROVIDER TEMP on 36-44-7933Snxrvhsil RBC Auto Ql (Bld)Nucleated erythrocytes [Presence] in Blood by Automated count0-0.5FTrinity Health SystemPlatelet mean volume Auto (Bld) [Entitic vol]Ordered By: PROVIDER TEMP on 81-08-4410Zkzjpbyn mean volume (Bld) [Entitic vol]Platelet mean volume [Entitic volume] in Blood by Automated countHigh6.6-10.1FTrinity Health SystemPlatelets Auto (Bld) [#/Vol]Ordered By: PROVIDER TEMP on 75-39-9105Lxlsaraiu (Bld) [#/Vol]Platelets [#/volume] in Blood by Automated adqbo088-423EpearnoymGerman Hospital Potassium [Moles/volume] in Serum or PlasmaOrdered By: PROVIDER TEMP on 67-79-3897Lxeahjmja [Moles/Vol]Potassium [Moles/volume] in Serum or Plasma 3.5-5.1FTrinity Health SystemProthrombin Time INRon 85-95-7597XRT Coag (PPP) [Relative time]1.2 {INR}NormalThe [facility] [...] heart valves: 3 - 4.5 PERFORMED BY: [facility] [place] [address] PATHOLOGIST BIOMATHEMATICIAN ANDRE PERALTA M.D.Performed By: #### PT, BMP, BNP, HS TROP, CK, CBC ####[facility] [address] [place] [address] USAPT Coag (PPP) [Time]14.3 sHigh9.0-12.9The [facility] Health Physician GroupComment on above: Result Comment: A hematocrit value greater than 55% may lead to inaccurate results in coagulation testing. Patients having hematocrit values >55% require a special collection tube for coagulation studies. Please contact the laboratory at [phone] for redraw instructions.Performed By: #### PT, BMP, BNP, HS TROP, CK, CBC ####[facility] [address] [place] [address] USAProthrombin time (PT) Ordered By: PROVIDER TEMP on 68-05-1337AD Coag (PPP) [Time]Prothrombin time (PT) High9.0-12.9German HospitalComment on above:A hematocrit value greater than 55% may lead to inaccurate results in coagulation testing. Patientshaving hematocrit values >55% require a special collection tube for coagulation studies. Please contact the laboratory at [phone] for redraw instructions.RBC Auto (Bld) [#/Vol]Ordered By: PROVIDER TEMP on 23-20-6826DYA (Bld) [#/Vol]Erythrocytes [#/volume] in Blood by Automated count3.90-5.60 [facility] Medical Centererum or plasma anion gap determinationOrdered By: PROVIDER TEMP on 30-95-3980Umiol gap [Moles/Vol]Serum or plasma anion gap determination6.0-15.0UC Medical Centerodium [Moles/volume] in Serum or PlasmaOrdered By: PROVIDER TEMP on 82-10-8509Kzcuoe [Moles/Vol]Sodium [Moles/volume] in Serum or YktegcNkf613-184WgwwfwaoeGerman Hospital Troponin I High Sensitivityon 49-75-9922Fnfrvlsz I High Uzodcfwcwjy77.4 pg/mL High0.0-20.0The [facility] Health Physician GroupComment on above:Result Comment: PERFORMED BY: [facility] [address] [place] [address] PATHOLOGIST BIOMATHEMATICIAN ANDRE PERALTA M.D.Performed By: #### GLULS #### Point of Care testing ,Troponin I High Akqxkjwmlan04.1 pg/mLHigh0.0-20.0The [facility] Comment on above:Result Comment: PERFORMED BY: [address] [address] PATHOLOGIST BIOMATHEMATICIAN ANDRE PERALTA M.D.Performed By: #### PT, BMP, BNP, HS TROP, CK, CBC ####[facility] [place] [address] [facility] Troponin I.cardiac [Mass/volume] in Serum or Plasma by Detection limit <= 0.01 ng/Ordered By: Bertin Smith on 82-17-9340Ndypbrkg I.cardiac DL <= 0.01 ng/mL [Mass/Vol]Troponin I.cardiac [Mass/volume] in Serum or Plasma by Detection limit <= 0.01 ng/High0.0-20.0German HospitalUrea nitrogen [Mass/volume] in Serum or PlasmaOrdered By: PROVIDER TEMP on 48-83-6568Hzdb nitrogen [Mass/Vol]Urea nitrogen [Mass/volume] in Serum or Plasma7-German HospitalWBC Auto (Bld) [#/Vol]Ordered By: PROVIDER TEMP on 61-40-4452ORN (Bld) [#/Vol]Leukocytes [#/volume] in Blood by Automated count 4.1-10.5FTrinity Health SystemX-ray reportOrdered By: Sergei Valentin on 61-36-1795Glxik reportST. ELIZABETH HOSPITAL Main [address] [address] XRay Report Signed Patient: Manolo Roche MR#: [id number] : 1935 Acct:[id number] Age/Sex: 89 / M ADM Date: 5 [...] Sergei Valentin M.D.07/16/2024 1:03 PM Dictation Location: [facility]--17 Transcribed By: [facility] 07/16/24 1303 Dictated By: Sergei Valentin II, MD 07/16/24 1302 Signed By: 07/16/24 1303 [facility] Work Phone: XR chest 2V*on 97-00-7954WX chest 2V*[facility] [place] [address] XRay Report Signed Patient: Manolo Roche MR#: [id number] 353 : 1935 Acct:[id number] Age/Sex: 89 / M ADM Date: 07/16/24 [...] II, MD 07/16/24 1302 Signed By: 07/16/24 1303[facility] Physician GroupCNPNon 65-84-1173CSZTQwtftrftg (DEMBHT) MANOLO ROCHE ([id number]) 1935 M Date Time Provider Department 07/13/24 GAYE MATA During your visit today, we recorded the following information about you: Gaye Mata, KARIN 07/13/2024 4:14 PM Signed In error Allergies As of Date: 07/13/2024 (No Known Allergies) Date Reviewed: 07/06/2024 Reviewed by: Ayana Zavala APRN.SENIOR ELECTRONICS TECHNICIAN - Fully Assessed Prescriptions as of 07/13/2024 [...] 5,) crtg Change every 72 hours. - zcxevl-yexyyham-sqfwetz (CREON) 24,000-76,000 -120,000 unit cpDR Take 2 [...] *06/23/2018 Encounter Status:Closed by GAYE MATA on [facility]/24[facility] ([facility]ETHLee[facility]) MANOLO ROCHE ([id number]) 1935 M Date Time Provider Department 07/13/24 [...] training for 07/25/24 at 1-3 pm at [facility]. Location. Patient's Mychart status is PENDING, invite resent via text and to create account. Email sent to [email or web address] with clinic address, time, date, and what [...] Date Reviewed: 07/06/2024 Reviewed by: Ayana Zavala APRN.SENIOR ELECTRONICS TECHNICIAN - Fully Assessed Reason for Visit: Omnipod [...] 5,) crtg Change every 72 hours. - qwkstv-sgbmddgo-rupkyyp (CREON) 24,000-76,000 -120,000 unit cpDR Take 2 [...] *06/23/2018 Encounter Status:Closed by GAYE MATA on 07/13/24[facility] [id number] Visit (ENDOLN) FREDDYMANOLO OSBORN ([id number]) 1935 M Date Time Provider Department 07/06/24 [...] is DO Marie Rodriguez (Johny) [address] [address] History of Present Illness Manolo Roche is a 89 year old male presents today for evaluation of DM Type 1. Here with and son. 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 Per patient, this was done due to [...] (PROBIOTIC-10 ORAL) Take by mouth once daily. ofrcfg-xosymcer-rmyksgn (CREON) 24,000-76,000 -120,000 unit cpDR Take 2 capsules by mouth three times daily with meals. and 1 with snacks (8/day) Digestive Enzyme Mixtures lutein-zeaxanthin 25-5 mg cap Take by mouth once daily. Alternative Therapy - Antioxidant Omeprazole Magnesium 20 mg tablet Take 20 mg by mouth. Gastric Acid Secretion Storage Center Manager - Proton Pump Inhibitors (PPIs) PARoxetine (PAXIL) 40 mg tablet Take 40 mg by mouth every morning. Antidepressant - Selective Serotonin Reuptake Inhibitors (SSRIs) tamsulosin (FLOMAX) 0.4 mg Take 0.4 mg by mouth. Prostatic Hypertrophy Agent - vscrf-3-Mfmkefzrxfgi Antagonists Physical Activity: No formal program Diet: CHO Controlled Diet SMBG Frequency of Monitoring: Four times a Day Summary of Personal CGM Findings: Dates worn: 06/22/24-07/05/24 CGM Type: Dexcom 1- CGM recording is adequate for interpretation. Worn 93% of (more content not included)...NormalMercy Health Urbana Hospitalon [id number] (KALEY) MANOLO ROCHE ([id number]) 1935 M Date Time Provider Department 07/06/24 AYANA ZAVALA During your visit today, we recorded the following information about you: Ayana Zavala APRN.SENIOR ELECTRONICS TECHNICIAN 07/06/2024 4:09 PM Signed Please update patient [...] for training. I reached out to our district sales leader and am waiting to hear back, but hopefully can get him set up for training in the next two weeks. Sheryl Ny MA 07/07/2024 4:31 PM Signed Called patient. No answer. [facility] to call [phone] to retrieve below message from Ayana Mckinney APRN.KALANI 07/13/2024 8:33 AM Signed Please call back patient to see how he is doing since we made adjustments to his regimen. I did reach out to the [employer] health and safety trainer at [place] and she said she would be reaching out. I want to make sure this gets scheduled and that she was able to reach him. Buffy Arana MA 07/13/2024 4:06 PM Signed Called and spoke with patient He is doing well He stated that he just got scheduled with the health and safety trainer today will call the office if [...] 5,) crtg Change every 72 hours. - yuryzt-cizbhdxp-fugtrob (CREON) 24,000-76,000 -120,000 unit cpDR Take 2 [...] *06/23/2018 Encounter Status:Closed by AYANA ZAVALA on 07/06/24[facility] DEMANDon [id number] by an unspecified provider. [facility] HospitalGLUCOSE, BLOOD (POC)on 26-71-4656Hrrvejz [Mass/Vol]76 mg/dL74 - 99 mg/dLUniversity Hospitals Portage Medical CenterComment on above:Location:[facility], [address] [place] [address], [address] The Accu-Chek Inform II glucose meter has [...] blood gas instrument) in the above situations. [facility] Portage Medical CenterHEMOGLOBIN A1C (POC)on 30-52-0101KjP9l (Bld) [Mass fraction]10.1 %Abnormal4.3 - 5.6 %[facility] Hospitals Portage Medical CenterComment on above:Location:[facility], [address] [place] [address], [place], [place], [facility] Point of care (POC) Hemoglobin A1c (HGBA1C) [...] specific diabetes management situations: The POC device medical device sales provides a normal range of 4.2% to 6.5% for the HGBA1C POC test. However, the [place] Diabetes Association guidelines indicate that patients with [...] cell lifespan. Interpretation and review of laboratory resultsAbnormalCMary Rutan HospitalGlucose Glucometer (BldC) [Mass/Vol]Ordered By: Sushant Cordon on 53-91-4322Yquamod [Mass/Vol]Capillary blood glucose measurement by glucometer (mass/volume)ACMC Healthcare SystemComment on above: Random Glucose Reference Range is dependent on time and content of last meal. Glucose of more than 200 mg/dL in a nonstressed, ambulatory subject supports the diagnosis of Diabetes Mellitus.Glucose Poct Glucometerson 58-68-4043Wdcfiyi7 NormalJackson South Medical Center Physician GroupComment on above:Result Comment: Glu2: Will Repeat TestPerformed By: #### GLULS #### Point of Care testing ,aKron NOTIFY VadimMemorial Regional Hospital Physician GroupComment on above: Performed By: #### GLULS #### Point of Care testing ,Mibvjij1Tnayxho MeterMedical Center Clinic Physician GroupComment on above:Result Comment: PERFORMED BY: [address] [place] [address] PATHOLOGIST BIOMATHEMATICIAN ANDRE PERALTA M.D.Performed By: #### GLULS #### Point of Care testing ,Glucose [Mass/Vol]572 mg/dLOff scale [facility] Physician GroupComment on above:Result Comment: Random Glucose Reference Range is dependent on time and content of last meal. Glucose of more than 200 mg/dL in a nonstressed, ambulatory subject supports the diagnosis of Diabetes Mellitus.Performed By: #### GLULS #### Point of Care testing ,Adplvjb0WuavhbRkq [facility] Physician GroupComment on above:Result Comment: Glu2: Will Repeat TestPerformed By: #### GLULS #### Point of Care testing ,Emuiuid2OMKL NOTIFY /DeepikaMemorial Regional Hospital Physician GroupComment on above: Performed By: #### GLULS #### Point of Care testing ,Zgjolfu6Xsgdkcd [facility] Physician GroupComment on above:Result Comment: PERFORMED BY: [address] [place] [address] PATHOLOGIST BIOMATHEMATICIAN ANDRE PERALTA M.D.Performed By: #### GLULS #### Point of Care testing ,Glucose [Mass/Vol]552 mg/dLOff scale [facility] Physician GroupComment on above:Result Comment: Random Glucose Reference Range is dependent on time and content of last meal. Glucose of more than 200 mg/dL in a nonstressed, ambulatory subject supports the diagnosis of Diabetes Mellitus.Performed By: #### GLULS #### Point of Care testing ,Glucose [Mass/Vol]375 mg/dLMedical Center Clinic Physician GroupComment on above: Result Comment: Random Glucose Reference Range is dependent on time and content of last meal. Glucose of more than 200 mg/dL in a nonstressed, ambulatory subject supports the diagnosis of Diabetes Mellitus. PERFORMED BY: [address] [place] [address] PATHOLOGIST BIOMATHEMATICIAN ANDRE PERALTA M.D.Performed By: #### GLULS #### Point of Care testing ,Akcyxxt7UqdrezLrc [facility] Physician GroupComment on above:Result Comment: Glu2: Will Repeat Test PERFORMED BY: [address] [place] [address] PATHOLOGIST BIOMATHEMATICIAN ANDRE PERALTA M.D.Performed By: #### GLULS #### Point of Care testing ,Glucose [Mass/Vol]437 mg/dLOff scale [facility] Physician GroupComment on above:Result Comment: Random Glucose Reference Range is dependent on time and content of last meal. Glucose of more than 200 mg/dL in a nonstressed, ambulatory subject supports the diagnosis of Diabetes Mellitus.Performed By: #### GLULS #### Point of Care testing ,Glucose [Mass/Vol]210 mg/dLMedical Center Clinic Physician GroupComment on above: Result Comment: Random Glucose Reference Range is dependent on time and content of last meal. Glucose of more than 200 mg/dL in a nonstressed, ambulatory subject supports the diagnosis of Diabetes Mellitus. PERFORMED BY: [address] [place] [id number] PATHOLOGIST BIOMATHEMATICIAN ANDRE PERALTA M.D.Performed By: #### GLULS #### Point of Care testing ,Glucose [Mass/Vol]332 mg/dLMedical Center Clinic Physician GroupComment on above: Result Comment: Random Glucose Reference Range is dependent on time and content of last meal. Glucose of more than 200 mg/dL in a nonstressed, ambulatory subject supports the diagnosis of Diabetes Mellitus. PERFORMED BY: [place] [address] PATHOLOGIST BIOMATHEMATICIAN ANDRE PERALTA M.D.Performed By: #### GLULS #### Point of Care testing ,No Panel InformationOrdered By: Sushant Cordon on 23-62-7783Wczbpza Glucose #2 CommentWill notify /BarryTrinity Health SystemBedside Glucose #3 CommentCleaned meterGerman HospitalBedside Glucose CommentSee commentGerman HospitalComment on above:Glu2: Will Repeat TestAerobic Cultureon 40-03-7087Geohqtk CultureComment deep wound culture of abdominal wound [...] RESISTANT TO ALL B-LACTAM DRUGS. PERFORMED BY: [address] [place] [address] PATHOLOGIST BIOMATHEMATICIAN ANDRE KeithThe [facility] Health Physician GroupComment on above: Performed By: #### GLULS #### Point of Care testing ,Anaerobic cultureOrdered By: Stephanie Sheridan on 24-58-0269Uzrloitr identified Anaer cx Nom (Unsp spec)Anaerobic cultureGerman Hospital Bacteria identified Aer cx Nom (Unsp spec)Ordered By: Stephanie Sheridan on 67-57-0164Olhrhkz CultureAbnoalGerman HospitalGroup B Strep (Streptococcus agalactiae)Group B Strep (Streptococcus agalactiae)Abnormal German HospitalGlucose Poct Glucometerson 72-79-3219Cvmvquw [Mass/Vol]134 mg/dLNoUNC Health Blue Ridge - Valdese Physician GroupComment on above:Result Comment: Random Glucose Reference Range is dependent on time and content of last meal. Glucose of more than 200 mg/dL in a nonstressed, ambulatory subject supports the diagnosis of Diabetes Mellitus. PERFORMED BY: [place] [address] PATHOLOGIST BIOMATHEMATICIAN ANDRE PERALTA M.D.Performed By: #### GLULS #### Point of Care testing ,Glucose [Mass/Vol]65 mg/dLNoUNC Health Blue Ridge - Valdese Physician GroupComment on above: Result Comment: Random Glucose Reference Range is dependent on time and content of last meal. Glucose of more than 200 mg/dL in a nonstressed, ambulatory subject supports the diagnosis of Diabetes Mellitus. PERFORMED BY: [place] [address] PATHOLOGIST BIOMATHEMATICIAN ANDRE PERALTA M.D.Performed By: #### GLULS #### Point of Care testing ,Mnnmyxl0Tid3: Cleaned MeterNoUNC Health Blue Ridge - Valdese Physician GroupComment on above: Result Comment: PERFORMED BY: [place] [address] PATHOLOGIST BIOMATHEMATICIAN ANDRE PERALTA M.D.Performed By: #### GLULS ####Point of Care testing, Glucose [Mass/Vol]140 mg/dLNoUNC Health Blue Ridge - Valdese Physician GroupComment on above: Result Comment: Random Glucose Reference Range is dependent on time and content of last meal. Glucose of more than 200 mg/dL in a nonstressed, ambulatory subject supports the diagnosis of Diabetes Mellitus.Performed By: #### GLULS ####Point of Care testing,Commemt1 Glu2: Cleaned MeterNoUNC Health Blue Ridge - Valdese Physician GroupComment on above:Result Comment: PERFORMED BY: [address] [place] [address] PATHOLOGIST BIOMATHEMATICIAN ANDRE PERALTA M.D.Performed By: #### GLULS ####Point of Care testing, Glucose [Mass/Vol]200 mg/dLNoUNC Health Blue Ridge - Valdese Physician GroupComment on above: Result Comment: Random Glucose Reference Range is dependent on time and content of last meal. Glucose of more than 200 mg/dL in a nonstressed, ambulatory subject supports the diagnosis of Diabetes Mellitus.Performed By: #### GLULS ####Point of Care testing,Commemt1 NormalJackson South Medical Center Physician GroupComment on above:Result Comment: Glu2: Will Repeat Test PERFORMED BY: [address] [place] [address] PATHOLOGIST BIOMATHEMATICIAN ANDRE PERALTA M.D.Performed By: #### GLULS #### Point of Care testing ,Glucose [Mass/Vol]425 mg/dLOff scale highJackson South Medical Center Physician GroupComment on above:Result Comment: Random Glucose Reference Range is dependent on time and content of last meal. Glucose of more than 200 mg/dL in a nonstressed, ambulatory subject supports the diagnosis of Diabetes Mellitus.Performed By: #### GLULS #### Point of Care testing ,Gram stain microscopyOrdered By: Stephanie Sheridan on 04-00-3289Mlpadozotzy observation Gram stain Nom (Unsp spec)Gram stain microscopyGerman HospitalA1C with Estimated Average Gluon 65-37-7980Pvmlvqm [Mass/Vol]255 mg/dLMedical Center Clinic Physician GroupComment on above:Order Comment: ADD ON PER IFEANYI - PHLEBResult Comment: PERFORMED BY: [address] [place] [address] PATHOLOGIST BIOMATHEMATICIAN ANDRE PERALTA M.D.Performed By: #### GLULS #### [...] by Light microscopyOrdered By: Sushant Cordon on 97-01-1889Qpdiuasldvad LM Ql (Bld)Acanthocytes [Presence] in Blood by Light microscopyGerman HospitalAnisocytosis LM Ql (Bld) Ordered By: Sushant Cordon on 35-77-6577Qvjwdegjphxw Ql (Bld)Anisocytosis [Presence] in Blood by Light microscopyGerman HospitalBasic Metabolic Panelon 77-86-0730Hjfbj gap [Moles/Vol]10.4 mmol/LNormal6.0-15.0The [facility] Health Physician GroupComment on above:Performed By: #### GLULS #### Point of Care testing ,Calcium [Mass/Vol]9.0 mg/dLNormal8.6-10.3The [facility] Health Physician GroupComment on above:Result Comment: PERFORMED BY: [facility] [place] [address] PATHOLOGIST BIOMATHEMATICIAN ANDRE PERALTA M.D.Performed By: #### GLULS #### Point of Care testing ,Chloride [Moles/Vol]103 mmol/HDkagpt99-857Soz [facility] Health Physician GroupComment on above:Performed By: #### GLULS #### Point of Care testing ,CO2 [Moles/Vol]28.0 mmol/GSuilnr80.0-31.0The [facility] Health Physician GroupComment on above:Performed By: #### GLULS #### Point of Care testing ,Creatinine [Mass/Vol]0.96 mg/dLNormal0.70-1.30The [facility] Physician Group Comment on above:Performed By: #### GLULS #### Point of Care testing ,GFR/1.73 sq M.predicted MDRD (S/P/Bld) [Vol rate/Area]mL/min/{1.73_m2}NormalThe [facility] Health Physician GroupComment on above:Performed By: #### GLULS #### Point of Care testing ,Glucose [Mass/Vol]90 mg/dMCxgosl84-677Xsg [facility] Physician [facility] CentralComment on above:Result Comment: Random Glucose Reference Range is dependent on time and content of last meal. Glucose of more than 200 mg/dL in a nonstressed, ambulatory subject supports the diagnosis of Diabetes Mellitus. ADA recommended reference rangePerformed By: #### GLULS #### Point of Care testing ,Potassium [Moles/Vol]4.4 mmol/LNormal3.5-5.1The [facility] Physician [facility] Comment on above:Performed By: #### GLULS #### Point of Care testing ,Sodium [Moles/Vol]137 mmol/RYelbaa055-868Rog [facility] Physician [facility] Health CentralComment on above:Performed By: #### GLULS #### Point of Care testing ,Urea nitrogen [Mass/Vol]22 mg/dLNormal7-25The [facility] Health Physician GroupComment on above:Performed By: #### GLULS #### Point of Care testing ,Basophils Auto (Bld) [#/Vol]Ordered By: Sushant Cordon on 06-19-2024 Basophils (Bld) [#/Vol]Automated basophil count0.0-0.2FTrinity Health SystemBasophils/100 WBC Auto (Bld)Ordered By: Sushant Cordon on 05-82-1671Qsvjvjzob/100 WBC (Bld)Automated basophil %.German HospitalBlood estimated average glucose determination by estimation from glycated hemoglobinOrdered By: Sushant Cordon on 94-90-8469Gfpowqz glucose Estimated from glycated hemoglobin (Bld) [Mass/Vol]Glucose mean value [Mass/volume] in Blood Estimated from glycated hemoglobinGerman HospitalBurr cells [Presence] in Blood by Light microscopyOrdered By: Sushant Cordon on 03-74-6209Xcut cells LM Ql (Bld)Chester cells [Presence] in Blood by Light microscopyGerman HospitalCalcium [Mass/volume] in Serum or PlasmaOrdered By: Sushant Cordon on 82-14-2926Zqovpjx [Mass/Vol]Calcium [Mass/volume] in Serum or Plasma8.6-10.3FTrinity Health SystemCarbon dioxide, total [Moles/volume] in Serum or PlasmaOrdered By: Sushant Cordon on 38-76-2406ZE2 [Moles/Vol]Carbon dioxide, total [Moles/volume] in Serum or Lhqsve16.0-31.0German Hospital Chloride [Moles/volume] in Serum or PlasmaOrdered By: Sushant Cordon on 17-24-2247Jbgxlnjp [Moles/Vol]Chloride [Moles/volume] in Serum or Vujbpc76-045 German HospitalCreatinine [Mass/volume] in Serum or Plasma Ordered By: Sushant Cordon on 75-90-7337Pdfpicsijn [Mass/Vol]Creatinine [Mass/volume] in Serum or Plasma0.70-1.30German Hospital Eosinophils Auto (Bld) [#/Vol]Ordered By: Sushant Cordon on 06-19-2024 Eosinophils (Bld) [#/Vol]Automated eosinophil count0.0-0.45German HospitalEosinophils/100 WBC Auto (Bld)Ordered By: Sushant Cordon on 77-42-0273Tqflqlowaet/100 WBC (Bld)Automated eosinophil %.German HospitalErythrocyte distribution width Auto (RBC) [Ratio]Ordered By: Sushant Cordon on 04-15-8174Jktrqwyplsj distribution width (RBC) [Ratio] Erythrocyte distribution width [Ratio] by Automated drlwlOwkw10.0-14.8German HospitalErythrocyte morphology finding [Identifier] in Blood Ordered By: Sushant Cordon on 93-88-6248JYW morphology finding Nom (Bld) RBC morphologyGerman HospitalGlucose Poct Glucometerson 10-61-8399Ddsbrkq [Mass/Vol]101 mg/dLNoUNC Health Blue Ridge - Valdese Physician GroupComment on above:Result Comment: Random Glucose Reference Range is dependent on time and content of last meal. Glucose of more than 200 mg/dL in a nonstressed, ambulatory subject supports the diagnosis of Diabetes Mellitus. PERFORMED BY: [facility] [address] PATHOLOGIST BIOMATHEMATICIAN ANDRE PERALTA M.D.Performed By: #### GLULS #### Point of Care testing ,Glucose [Mass/volume] in Serum or PlasmaOrdered By: Sushant Cordon on 51-27-3334Towcazs [Mass/Vol]Glucose [Mass/volume] in Serum or Nxqlbh77-913 German HospitalComment on above:ADA recommended reference rangeRandom Glucose Reference Range is dependent on time and content of last meal. Glucose of more than 200 mg/dL in a nonstressed, ambulatory subject supports the diagnosisof Diabetes Mellitus.Hematocrit Auto (Bld) [Volume fraction]Ordered By: Sushant Cordon on 94-25-1671Fqqqcnkpkf (Bld) [Volume fraction]Hematocrit [Volume Fraction] of Blood by Automated jmjamIbw25.8-50.0 German HospitalHemoglobin A1c/Hemoglobin.total in BloodOrdered By: Sushant Cordon on 30-34-5536JfH6h (Bld) [Mass fraction]Hemoglobin A1c percentageHigh4.3-5.6FTrinity Health SystemComment on above:Increased risk for diabetes: 5.7 - 6.4diabetes: >6.4glycemic control for adults with diabetes: <7.0Hemoglobin [Mass/volume] in BloodOrdered By: Sushant Cordon on 92-69-2264Hhfqxxlxpt (Bld) [Mass/Vol]Hemoglobin [Mass/volume] in JhazzJjb49.0-17.0German HospitalHypochromia LM Ql (Bld)Ordered By: Sushant Cordon on 13-50-2421Rsgpxcmbatt Ql (Bld)Hypochromia [Presence] in Blood by Light microscopyGerman HospitalINR in Platelet poor plasma by Coagulation assayOrdered By: Sushant Cordon on 19-78-0107SUH Coag (PPP) [Relative time]INR in Platelet poor plasma by Coagulation assayGerman HospitalComment on above:INR Therapeutic Range A) Pre- [...] by Automated counOrdered By: Sushant Cordon on 70-55-8252DAU corrected for nucl RBC Auto (Bld) [#/Vol]Leukocytes [#/volume] corrected for nucleated erythrocytes in Blood by Automated coun4.1-10.5FTrinity Health SystemLymphocytes Auto (Bld) [#/Vol]Ordered By: Sushant Cordon on 90-18-9446Raqdexpidcw (Bld) [#/Vol]Lymphocytes [#/volume] in Blood by Automated count1.00-4.8German HospitalLymphocytes/100 WBC Auto (Bld)Ordered By: Sushant Cordon on 01-22-0016Clrisnnksxw/100 WBC (Bld)Lymphocytes/100 leukocytes in Blood by Automated count.[facility] Auto (RBC) [Entitic mass]Ordered By: Sushant Cordon on 22-77-3600ZRE (RBC) [Entitic mass]MCH [Entitic mass] by Automated lskfaBcp88.5-35.2FTrinity Health SystemMCHC Auto (RBC) [Mass/Vol]Ordered By: Sushant Cordon on 06-19-2024 MCHC (RBC) [Mass/Vol]MCHC [Mass/volume] by Automated count32.5-35.6FOur Lady of Mercy HospitalV Auto (RBC) [Entitic vol]Ordered By: Sushant Cordon on 30-63-0182PLZ (RBC) [Entitic vol]MCV [Entitic volume] by Automated fketeFeg00.5-101German HospitalMacrocytes LM Ql (Bld)Ordered By: Sushant Cordon on 01-48-9342Uwomlrseoz Ql (Bld)Macrocytes [Presence] in Blood by Light microscopyGerman HospitalMicrocytes LM Ql (Bld)Ordered By: Sushant Cordon on 60-34-6002Zqfisiwpef Ql (Bld)Microcytes [Presence] in Blood by Light microscopyGerman Hospital Monocytes Auto (Bld) [#/Vol]Ordered By: Sushant Cordon on 06-19-2024 Monocytes (Bld) [#/Vol]Automated blood monocyte count0.0-0.8German HospitalMonocytes/100 WBC Auto (Bld)Ordered By: Sushant Cordon on 31-98-6239Wfmthcfdy/100 WBC (Bld)Automated monocyte %.German HospitalNeutrophils Auto (Bld) [#/Vol]Ordered By: Sushant Cordon on 95-06-7616Dsbcmakilhz (Bld) [#/Vol]Neutrophils [#/volume] in Blood by Automated count1.8-7.7FTrinity Health SystemNeutrophils/100 WBC Auto (Bld) Ordered By: Sushant Cordon on 17-72-7137Ygmnigpgzwg/100 WBC (Bld)Automated neutrophil %.German HospitalNo Panel InformationOrdered By: Sushant Cordon on 13-58-2223Xxpvmrxaf GFR (CKD-EPI)> 60.0 mL/MinGerman HospitalPharmacy Creatinine Clearance (ChemN/AFTrinity Health SystemNucleated erythrocytes [Presence] in Blood by Automated count Ordered By: Sushant Cordon on 49-10-3025Wspkhvxom RBC Auto Ql (Bld) Nucleated erythrocytes [Presence] in Blood by Automated count0-0.5FTrinity Health SystemOvalocytes [Presence] in Blood by Light microscopyOrdered By: Sushant Cordon on 80-30-3074Epzctqnzqk LM Ql (Bld)Ovalocyte detection German HospitalPartial Thromboplastin Timeon 73-17-8012xLFZ Coag (Bld) [Time]29.4 tResheo07.1-36.5The [facility] Health Physician GroupComment on above:Result Comment: A hematocrit value greater than 55% may lead to inaccurate results in coagulation testing. Patients having hematocrit values >55% require a special collection tube for coagulation studies. Please contact the laboratory at [phone] for redraw instructions. PERFORMED BY: [facility] [address] [place] [address] PATHOLOGIST BIOMATHEMATICIAN ANDRE PERALTA M.D.Performed By: #### GLULS #### Point of Care testing ,Platelet adequacy [Presence] in Blood by Light microscopyOrdered By: Sushant Cordon on 83-23-5368Kypsyozbw LM Ql (Bld)Platelet adequacy [Presence] in Blood by Light microscopyUniversity Hospitals Beachwood Medical CenterPlatelet mean volume Auto (Bld) [Entitic vol]Ordered By: Sushant Cordon on 06-19-2024 Platelet mean volume (Bld) [Entitic vol]Platelet mean volume [Entitic volume] in Blood by Automated count6.6-10.1FTrinity Health SystemPlatelet morphology finding [Identifier] in BloodOrdered By: Sushant Cordon on 94-59-2266Rbouuruc morphology finding Nom (Bld)Platelet morphology finding [Identifier] in BloodNoKettering Health DaytonPlatelets Auto (Bld) [#/Vol]Ordered By: Sushant Cordon on 46-24-8090Synzftcyu (Bld) [#/Vol] Platelets [#/volume] in Blood by Automated vhfni354-093IzqatheuoGerman HospitalPoikilocytosis [Presence] in Blood by Light microscopyOrdered By: Sushant Cordon on 04-31-1690Uqnpiabziwvxdb LM Ql (Bld)Poikilocytosis [Presence] in Blood by Light microscopyGerman Hospital Potassium [Moles/volume] in Serum or PlasmaOrdered By: Sushant Cordon on 52-40-7889Favxsioaf [Moles/Vol]Potassium [Moles/volume] in Serum or Plasma 3.5-5.1FTrinity Health SystemProthrombin Time INRon 16-44-9349TZR Coag (PPP) [Relative time]1.1 {INR}NormalThe [facility] [...] coagulation studies. Please contact the laboratory at [phone] for redraw instructions.Performed By: #### GLULS #### Point of Care testing ,Prothrombin time (PT)Ordered By: Sushant Cordon on 79-86-1363UQ Coag (PPP) [Time]Prothrombin time (PT)9.0-12.9[facility] Comment on above:A hematocrit value greater than 55% may lead to inaccurate results in coagulation testing. Patientshaving hematocrit values >55% require a special collection tube for coagulation studies. Please contact the laboratory at [phone] for redraw instructions.RBC Auto (Bld) [#/Vol]Ordered By: Sushant Cordon on 17-01-6526ELN (Bld) [#/Vol]Erythrocytes [#/volume] in Blood by Automated count3.90-5.60UC Medical Centercan and CBCon 68-90-1791TofvbukqhotuGsrksfrtIwswchAxt Firelands Physician GroupComment on above:Performed By: #### GLULS #### Point of Care testing ,Anisocytosis Ql (Bld)ModerateNoSt. Elizabeth HospitalComment on above:Performed By: #### GLULS #### Point of Care testing ,Basophils (Bld) [#/Vol]0.1 10*3/uLNormal0.0-0.2The [facility] Comment on above:Result Comment: PERFORMED BY: [facility] [place] [address] PATHOLOGIST BIOMATHEMATICIAN ANDRE PERALTA M.D.Performed By: #### GLULS #### Point of Care testing ,Basophils/100 WBC (Bld)1.8 %Normal.The [facility] Physician GroupComment on above:Performed By: #### GLULS #### Point of Care testing ,Crenated RBCSlightNoUNC Health Blue Ridge - Valdese Physician GroupComment on above:Performed By: #### GLULS #### Point of Care testing ,Eosinophils (Bld) [#/Vol]0.1 10*3/uLNormal0.0-0.45The [facility] Comment on above:Performed By: #### GLULS #### [...] #### GLULS #### Point of Care testing ,HypochromasiaModerateMedical Center Clinic Physician GroupComment on above: Performed By: #### GLULS #### Point of Care testing ,Lymphocytes (Bld) [#/Vol]3.5 10*3/uLNormal1.00-4.8The [facility] Comment on above:Performed By: #### GLULS #### Point of Care testing ,Lymphocytes/100 WBC (Bld)44.3 %Normal.The [facility] Physician GroupComment on above:Performed By: #### GLULS #### Point of Care testing ,MacrocytosisSNovant Health Charlotte Orthopaedic Hospital Physician GroupComment on above:Performed By: #### GLULS #### Point of Care testing ,MCH (RBC) [Entitic mass]25.5 pgLow27.5-35.2The [facility] Physician GroupComment on above:Performed By: #### GLULS #### Point of Care testing ,MCV (RBC) [Entitic vol]76.9 fLLow83.5-101The [facility] Physician GroupComment on above:Performed By: #### GLULS #### Point of Care testing ,Mean Corpuscular HGB Conc33.2 g/qKSkdxtn56.5-35.6The [facility] Comment on above:Performed By: #### GLULS #### Point of Care testing ,MicrocytosisSNovant Health Charlotte Orthopaedic Hospital Physician GroupComment on above:Performed By: #### GLULS #### Point of Care testing ,Monocytes (Bld) [#/Vol]0.6 10*3/uLNormal0.0-0.8The [facility] Comment on above:Performed By: #### GLULS #### Point of Care testing ,Monocytes/100 WBC (Bld)7.0 %Normal.The [facility] Physician GroupComment on above:Performed By: #### GLULS #### Point of Care testing ,Neutrophils (Bld) [#/Vol]3.6 10*3/uLNormal1.8-7.7The [facility] Comment on above:Performed By: #### GLULS #### Point of Care testing ,Neutrophils/100 WBC (Bld)45.6 %Normal.The [facility] Physician GroupComment on above:Performed By: #### GLULS #### Point of Care testing ,NRBC%0.1 /100{WBC}Normal0-0.5The [facility] Physician GroupComment on above: Performed By: #### GLULS #### Point of Care testing ,OvalocytesSlightNoUNC Health Blue Ridge - Valdese Physician GroupComment on above:Performed By: #### GLULS #### Point of Care testing ,Platelet EstimateNormalNormalNormMemorial Regional Hospital Physician GroupComment on above:Performed By: #### GLULS #### Point of Care testing ,Platelet mean volume (Bld) [Entitic vol]9.8 fLNormal6.6-10.1The [facility] Physician GroupComment on above:Performed By: #### GLULS #### Point of Care testing ,Platelet MorphologyNormalNormalNoUNC Health Blue Ridge - Valdese Physician GroupComment on above:Result Comment: PERFORMED BY: [facility] [place] [address] PATHOLOGIST BIOMATHEMATICIAN ANDRE PERALTA M.D.Performed By: #### GLULS #### Point of Care testing ,Platelets (Bld) [#/Vol]243 10*3/bOPuunao599-958Stx [facility] Comment on above:Performed By: #### GLULS #### Point of Care testing ,PoikilocytosisModerateNoUNC Health Blue Ridge - Valdese Physician GroupComment on above: Performed By: #### GLULS #### Point of Care testing ,RBC (Bld) [#/Vol]4.43 10*6/uLNormal3.90-5.60The [facility] Comment on above:Performed By: #### GLULS #### Point of Care testing ,SchistocytesSlightMedical Center Clinic Physician GroupComment on above:Performed By: #### GLULS #### Point of Care testing ,Target CellsSlightMedical Center Clinic Physician GroupComment on above:Performed By: #### GLULS #### Point of Care testing ,WBC (Bld) [#/Vol]7.9 10*3/uLNormal4.1-10.5The [facility] Physician GroupComment on above:Performed By: #### GLULS #### Point of Care testing ,Schistocytes [Presence] in Blood by Light microscopyOrdered By: Sushant Cordon on 45-10-4803Xqasqvfdzueu LM Ql (Bld)Schistocytes [Presence] in Blood by Light microscopyUC Medical Centererum or plasma anion gap determinationOrdered By: Sushant Cordon on 98-56-0814Nxhft gap [Moles/Vol] Serum or plasma anion gap determination6.0-15.0[facility] Sodium [Moles/volume] in Serum or PlasmaOrdered By: Sushant Cordon on 96-40-1978Kywzdk [Moles/Vol]Sodium [Moles/volume] in Serum or Fzxhtp488-213 [facility] HospitalTarget cells [Presence] in Blood by Light microscopyOrdered By: Sushant Cordon on 05-98-6035Poymhl cells LM Ql (Bld) Target cellsGerman HospitalUrea nitrogen [Mass/volume] in Serum or PlasmaOrdered By: Sushant Cordon on 01-58-4045Gxhn nitrogen [Mass/Vol]Urea nitrogen [Mass/volume] in Serum or Plasma7-25German HospitalWBC Auto (Bld) [#/Vol]Ordered By: Sushant Cordon on 63-77-1418CSL (Bld) [#/Vol]Leukocytes [#/volume] in Blood by Automated count 4.1-10.5FTrinity Health SystemaPTT in Platelet poor plasma by Coagulation assayOrdered By: Sushant Cordon on 99-97-9663tCRS Coag (PPP) [Time]Activated partial thromboplastin time (aPTT) in platelet poor plasma by coagulation a25.1-36.5FTrinity Health SystemComment on above:A hematocrit value greater than 55% may lead to inaccurate results in coagulation testing. Patientshaving hematocrit values >55% require a special collection tube for coagulation studies. Please contact the laboratory at [phone] for redraw instructions.Acanthocytes [Presence] in Blood by Light microscopyOrdered By: Jose Alfredo Brantley on 57-48-9553Fyxhyfuaqbwn LM Ql (Bld)Acanthocytes [Presence] in Blood by Light microscopyGerman HospitalAlanine aminotransferase [Enzymatic activity/volume] in Serum or PlasmaOrdered By: Jose Alfredo Brantley on 62-80-2939UJS [Catalytic activity/Vol]Alanine aminotransferase [Enzymatic activity/volume] in Serum or Plasma7-52German HospitalAlbumin [Mass/volume] in Serum or Plasma by Bromocresol green (BCG) dye binding methoOrdered By: Jose Alfredo Brantley on 47-06-9984Xhngarl BCG dye [Mass/Vol] Albumin [Mass/volume] in Serum or Plasma by Bromocresol green (BCG) dye binding methoLow3.5-5.7FTrinity Health SystemAlkaline phosphatase [Enzymatic activity/volume] in Serum or PlasmaOrdered By: Jose Alfredo Brantley on 13-72-4153XUU [Catalytic activity/Vol]Alkaline phosphatase [Enzymatic activity/volume] in Serum or CdbounXgmz05-655IbloxsmkhGerman HospitalAnisocytosis LM Ql (Bld)Ordered By: Jose Alfredo Brantley on 02-49-1374Jwrsjeznvecb Ql (Bld)Anisocytosis [Presence] in Blood by Light microscopyGerman Hospital Aspartate aminotransferase [Enzymatic activity/volume] in Serum or PlasmaOrdered By: Jose Alfredo Brantley on 14-38-1396MOU [Catalytic activity/Vol]Aspartate aminotransferase [Enzymatic activity/volume] in Serum or Wujybt89-88LzdgdbqcaGerman HospitalBasophils Auto (Bld) [#/Vol]Ordered By: Jose Alfredo Brantley on 52-80-9503Xkafefwyn (Bld) [#/Vol]Automated basophil countGerman HospitalBasophils/100 WBC Auto (Bld)Ordered By: Jose Alfredo Brantley on 06-18-2024 Basophils/100 WBC (Bld)Automated basophil %[facility] Bilirubin.total [Mass/volume] in Serum or PlasmaOrdered By: Jose Alfredo Brantley on 93-96-0793Jwjgayllz [Mass/Vol]Bilirubin.total [Mass/volume] in Serum or Plasma 0.3-1.0German HospitalBurr cells [Presence] in Blood by Light microscopyOrdered By: Jose Alfredo Brantley on 37-24-8778Avaw cells LM Ql (Bld)Chester cells [Presence] in Blood by Light microscopyGerman HospitalCalcium [Mass/volume] in Serum or PlasmaOrdered By: Jose Alfredo Brantley on 23-10-1456Jpltydu [Mass/Vol]Calcium [Mass/volume] in Serum or Plasma8.6-10.3FTrinity Health SystemCarbon dioxide, total [Moles/volume] in Serum or PlasmaOrdered By: Jose Alfredo Brantley on 26-80-1546HS5 [Moles/Vol]Carbon dioxide, total [Moles/volume] in Serum or Nqicrm72.0-31.0German HospitalChloride [Moles/volume] in Serum or PlasmaOrdered By: Jose Alfredo Brantley on 62-64-2406Lkaftigp [Moles/Vol]Chloride [Moles/volume] in Serum or Nseidd24-117HpdxcurvjGerman HospitalComprehensive Metabolic Panelon 06-76-2766Xkfmgqj [Mass/Vol]3.4 g/dLLow3.5-5.7The [facility] Physician GroupComment on above:Performed By: #### DIFF CBC, CMP ####[place] [address] USAAlbumin/Globulin [Mass ratio]1.1 {ratio}NormalThe [facility] Physician [facility] CentralComment on above:Performed By: #### DIFF CBC, CMP ####[place] [id number] USAALP [Catalytic activity/Vol] 109 U/NDewf06-551Bnr [facility] Physician GroupComment on above:Performed By: #### DIFF CBC, CMP ####[place] [id number] USAALT [Catalytic activity/Vol]14 U/LNormal7-52The [facility] GroupComment on above:Performed By: #### DIFF CBC, CMP ####[place] [id number] USAAnion gap [Moles/Vol]11.4 mmol/LNormal6.0-15.0The [facility] Physician GroupComment on above:Performed By: #### DIFF CBC, CMP ####[place] [id number] USAAST [Catalytic activity/Vol]21 U/EFyfpdg80-67Pxf [facility] Physician [facility] CentralComment on above:Performed By: #### DIFF CBC, CMP ####[place] [address] USABilirubin [Mass/Vol]0.4 mg/dL Normal0.3-1.0The [facility] Physician [facility] Health CentralComment on above:Performed By: #### DIFF CBC, CMP ####[place] [address] USACalcium [Mass/Vol]8.7 mg/dLNormal8.6-10.3The [facility] Comment on above:Performed By: #### DIFF CBC, CMP ####[place] [address] USAChloride [Moles/Vol]102 mmol/LNormal 98-107The [facility] Physician [facility] CentralComment on above:Performed By: #### DIFF CBC, CMP ####[place] [address] [place] CO2 [Moles/Vol]27.6 mmol/ZHcsnrj30.0-31.0The [facility] Physician GroupComment on above:Performed By: #### DIFF CBC, CMP ####[place] [address] USACreatinine [Mass/Vol]0.96 mg/dLNormal0.70-1.30 The [facility] Physician GroupComment on above:Performed By: #### DIFF CBC, CMP ####[place] [address] [place] Creatinine Clr Calc Vurqpnfo46.22NormalThe [facility] Physician [facility] Health CentralComment on above:Result Comment: PERFORMED BY: [facility] [address] [place] [id number] PATHOLOGIST BIOMATHEMATICIAN ANDRE PERALTA M.D.Performed By: #### DIFF CBC, CMP ####[place] [address] USAGFR/1.73 sq M.predicted MDRD (S/P/Bld) [Vol rate/Area]mL/min/{1.73_m2}NormalThe [facility] Physician GroupComment on above:Performed By: #### DIFF CBC, CMP ####[place] [id number] USAGlobulin (S) [Mass/Vol]3.0 g/dLNormalThe [facility] Physician GroupComment on above:Performed By: #### DIFF CBC, CMP ####[place] [address] USAGlucose [Mass/Vol]85 mg/tBLherps92-268Hca [facility] Physician GroupComment on above:Result Comment: Random Glucose Reference Range is dependent on time and content of last meal. Glucose of more than 200 mg/dL in a nonstressed, ambulatory subject supports the diagnosis of Diabetes Mellitus. ADA recommended reference rangePerformed By: #### DIFF CBC, CMP ####[place] [id number] USAPotassium [Moles/Vol] 4.0 mmol/LNormal3.5-5.1The [facility] Physician GroupComment on above:Performed By: #### DIFF CBC, CMP ####[place] [phone] USAProtein [Mass/Vol]6.4 g/dLNormal6.4-8.9The [facility] Physician GroupComment on above:Performed By: #### DIFF CBC, CMP ####[place] [phone] USASodium [Moles/Vol]137 mmol/OWxszsx344-258Fcw [facility] Physician GroupComment on above:Performed By: #### DIFF CBC, CMP ####[place] [phone] USAUrea nitrogen [Mass/Vol]21 mg/dLNormal7-25The [facility] Physician GroupComment on above:Performed By: #### DIFF CBC, CMP ####[place] [phone] USACreatinine [Mass/volume] in Serum or PlasmaOrdered By: Jose Alfredo Brantley on 91-30-5975Hxqhwxbmgs [Mass/Vol] Creatinine [Mass/volume] in Serum or Plasma0.70-1.30German HospitalDiff and CBCon 17-92-5507UniiniabdhocAfeomjEgpxbrGsi Firelands Physician GroupComment on above:Performed By: #### DIFF CBC, CMP ####[address] [address] USAAnisocytosis Ql (Bld)Marked NormalThe [facility] Physician GroupComment on above:Performed By: #### DIFF CBC, CMP ####[address] [address] [place] Crenated RBCModerateNoUNC Health Blue Ridge - Valdese Physician GroupComment on above: Performed By: #### DIFF CBC, CMP ####[address] [address] USAEosinophils/100 WBC (Bld)4 %High1-3The [facility] Physician GroupComment on above:Performed By: #### DIFF CBC, CMP ####[address] [address] USAErythrocyte distribution width (RBC) [Ratio]20.2 %High12.0-14.8The [facility] Comment on above:Performed By: #### DIFF CBC, CMP ####[address] [address] USAHematocrit (Bld) [Volume fraction] 35.5 %Low38.8-50.0The [facility] Physician GroupComment on above:Performed By: #### DIFF CBC, CMP ####[address] [address] USAHemoglobin (Bld) [Mass/Vol]11.8 g/dLLow13.0-17.0The [facility] Physician GroupComment on above:Performed By: #### DIFF CBC, CMP ####[address] [address] USAHypochromasiaSlight NormalJackson South Medical Center Physician [facility] Health CentralComment on above:Performed By: #### DIFF CBC, CMP ####[address] [place] [address] [place] Large PlateletsSNovant Health Charlotte Orthopaedic Hospital Physician GroupComment on above:Result Comment: PERFORMED BY: [facility] [address] [place] [id number] PATHOLOGIST BIOMATHEMATICIAN ANDRE PERALTA M.D.Performed By: #### DIFF CBC, CMP ####[place] [phone] USALymphocytes/100 WBC (Bld)15 %Bpm45-17Khe [facility] Physician GroupComment on above:Performed By: #### DIFF CBC, CMP ####[place] [phone] USAMacrocytosisSNovant Health Charlotte Orthopaedic Hospital Physician GroupComment on above:Performed By: #### DIFF CBC, CMP ####[address] StreetH (RBC) [Entitic mass]25.6 pgLow27.5-35.2The [facility] Physician GroupComment on above:Performed By: #### DIFF CBC, CMP ####[place] [phone] [facility] ([facility]BC) [Entitic vol]76.7 fLLow83.5-101The [facility] Physician GroupComment on above:Performed By: #### DIFF CBC, CMP ####[place] [address] USAMean Corpuscular HGB Conc33.3 g/dLNormal 32.5-35.6The [facility] Physician GroupComment on above:Performed By: #### DIFF CBC, CMP ####[place] [phone] USAMicrocytosisSNovant Health Charlotte Orthopaedic Hospital Physician GroupComment on above: Performed By: #### DIFF CBC, CMP ####[place] [phone] USAMonocytes/100 WBC (Bld)12 %High2-11The [facility] Physician GroupComment on above:Performed By: #### DIFF CBC, CMP ####[address] [address] USAPlatelet Estimate NormalNormalNormMemorial Regional Hospital Physician GroupComment on above:Performed By: #### DIFF CBC, CMP ####[address] [address] USAPlatelet mean volume (Bld) [Entitic vol]10.1 fLNormal6.6-10.1The [facility] Physician GroupComment on above:Performed By: #### DIFF CBC, CMP ####[address] [address] [place] Platelets (Bld) [#/Vol]239 10*3/tSJcrptr761-554Wpe [facility] Comment on above:Performed By: #### DIFF CBC, CMP ####[address] [address] USAPoikilocytosisMarkedMedical Center Clinic Physician GroupComment on above:Performed By: #### DIFF CBC, CMP ####[address] [address] [place] PolychromasiaSlightNoUNC Health Blue Ridge - Valdese Physician GroupComment on above:Performed By: #### DIFF CBC, CMP ####[address] [address] USARBC (Bld) [#/Vol]4.63 10*6/uLNormal3.90-5.60The [facility] Physician GroupComment on above:Performed By: #### DIFF CBC, CMP ####[address] [address] [place] SchistocytesModerateMedical Center Clinic Physician GroupComment on above: Performed By: #### DIFF CBC, CMP ####[address] [address] USASegmented neutrophils/100 WBC (Bld)69 %Rvnjjg90-58 The [facility] Physician GroupComment on above:Performed By: #### DIFF CBC, CMP ####[address] [address] USATarget CellsModerateNormalThe [facility] Physician GroupComment on above:Performed By: #### DIFF CBC, CMP ####[facility] [address] [place] [address] USAWBC (Bld) [#/Vol]7.3 10*3/uLNormal4.1-10.5The [facility] Physician GroupComment on above:Performed By: #### DIFF CBC, CMP ####[facility] [address] [place] [address] USAEosinophils Auto (Bld) [#/Vol] Ordered By: Jose Alfredo Brantley on 80-78-1555Ejozogvqjgv (Bld) [#/Vol]Automated eosinophil countGerman HospitalEosinophils/100 WBC Auto (Bld) Ordered By: Jose Alfredo Brantley on 66-88-8545Fqqppwbrpkr/100 WBC (Bld)Automated eosinophil %German HospitalEosinophils/100 WBC Manual cnt (Bld)Ordered By: Jose Alfredo Brantley on 27-14-0838Gvoekscjzgu/100 WBC (Bld) Eosinophils/100 leukocytes in Blood by Manual countHigh1-3FTrinity Health SystemErythrocyte distribution width Auto (RBC) [Ratio]Ordered By: Jose Alfredo Brantley on 95-89-7786Fduciyebkcw distribution width (RBC) [Ratio]Erythrocyte distribution width [Ratio] by Automated qyjiuPccz45.0-14.8German HospitalErythrocyte morphology finding [Identifier] in BloodOrdered By: Jose Alfredo Brantley on 04-66-6009OKU morphology finding Nom (Bld)RBC morphologyGerman HospitalGlobulin Calc (S) [Mass/Vol]Ordered By: Jose Alfredo Brantley on 95-61-3668Cxowngkn (S) [Mass/Vol]Serum globulin measurement by calculation (mass/volume)German HospitalGlucose Glucometer (BldC) [Mass/Vol]Ordered By: Jose Alfredo Brantley on 34-16-1436Robvmiv [Mass/Vol]Capillary blood glucose measurement by glucometer (mass/volume)German HospitalComment on above:Random Glucose Reference Range is dependent on time and content of last meal. Glucose of more than 200 mg/dL in a nonstressed, ambulatory subject supports the diagnosis of Diabetes Mellitus.Glucose Poct Glucometerson 99-82-0875Gaydqik [Mass/Vol]386 mg/dLMedical Center Clinic GroupComment on above:Result Comment: Random Glucose Reference Range is dependent on time and content of last meal. Glucose of more than 200 mg/dL in a nonstressed, ambulatory subject supports the diagnosis of Diabetes Mellitus. PERFORMED BY: [address] [place] [address] PATHOLOGIST BIOMATHEMATICIAN ANDRE PERALTA M.D.Performed By: #### GLULS #### Point of Care testing ,Wcoefxa8MdgajiBok[address] Physician GroupComment on above:Result Comment: Glu2: Will Repeat TestPerformed By: #### GLULS #### Point of Care testing ,Iuldkor1LHPI NOTIFY /KyleUNC Health Blue Ridge - Valdese Physician GroupComment on above: Result Comment: PERFORMED BY: [address] [place] [id number] PATHOLOGIST BIOMATHEMATICIAN ANDRE PERALTA M.D.Performed By: #### GLULS #### Point of Care testing ,Glucose [Mass/Vol]417 mg/dLOff scale [facility] Physician GroupComment on above:Result Comment: Random Glucose Reference Range is dependent on time and content of last meal. Glucose of more than 200 mg/dL in a nonstressed, ambulatory subject supports the diagnosis of Diabetes Mellitus.Performed By: #### GLULS #### Point of Care testing ,Cqxwkrm4DkkgayPnk[address] Physician Compranay on above:Result Comment: Glu2: Will Repeat Test PERFORMED BY: [address] [place] [id number] PATHOLOGIST BIOMATHEMATICIAN ANDRE PERALTA M.D.Performed By: #### GLULS #### Point of Care testing ,Glucose [Mass/Vol]483 mg/dLOff scale [facility] Physician GroupComment on above:Result Comment: Random Glucose Reference Range is dependent on time and content of last meal. Glucose of more than 200 mg/dL in a nonstressed, ambulatory subject supports the diagnosis of Diabetes Mellitus.Performed By: #### GLULS #### Point of Care testing ,Glucose [Mass/Vol]393 mg/dLMedical Center Clinic Physician GroupComment on above: Result Comment: Random Glucose Reference Range is dependent on time and content of last meal. Glucose of more than 200 mg/dL in a nonstressed, ambulatory subject supports the diagnosis of Diabetes Mellitus. PERFORMED BY: [address] [address] PATHOLOGIST BIOMATHEMATICIAN ANDRE PERALTA M.D.Performed By: #### GLULS #### Point of Care testing ,Glucose [Mass/Vol]85 mg/dLMedical Center Clinic Physician GroupComment on above: Result Comment: Random Glucose Reference Range is dependent on time and content of last meal. Glucose of more than 200 mg/dL in a nonstressed, ambulatory subject supports the diagnosis of Diabetes Mellitus. PERFORMED BY: [facility] [address] [place] [address] PATHOLOGIST BIOMATHEMATICIAN ANDRE PERALTA M.D.Performed By: #### GLULS #### Point of Care testing ,Glucose [Mass/volume] in Serum or PlasmaOrdered By: Jose Alfredo Brantley on 06-18-2024 Glucose [Mass/Vol]Glucose [Mass/volume] in Serum or Nkxkzm97-027GyvbwtfzfGerman HospitalComment on above:ADA recommended reference rangeRandom Glucose Reference Range is dependent on time and content of last meal. Glucose of more than 200 mg/dL in a nonstressed, ambulatory subject supports the diagnosisof Diabetes Mellitus.Hematocrit Auto (Bld) [Volume fraction]Ordered By: Jose Alfredo Brantley on 79-55-9099Kkiuvdekqj (Bld) [Volume fraction]Hematocrit [Volume Fraction] of Blood by Automated aieqoGvc15.8-50.0German HospitalHemoglobin [Mass/volume] in BloodOrdered By: Jose Alfredo Brantley on 06-18-2024 Hemoglobin (Bld) [Mass/Vol]Hemoglobin [Mass/volume] in JkqggIpq11.0-17.0 German HospitalHypochromia LM Ql (Bld)Ordered By: Jose Alfredo Brantley on 37-18-3312Qzqobbkkswj Ql (Bld)Hypochromia [Presence] in Blood by Light microscopyGerman HospitalLeukocytes [#/volume] corrected for nucleated erythrocytes in Blood by Automated counOrdered By: Jose Alfredo Brantley on 68-62-6859JZO corrected for nucl RBC Auto (Bld) [#/Vol]Leukocytes [#/volume] corrected for nucleated erythrocytes in Blood by Automated coun4.1-10.5FTrinity Health SystemLymphocytes Auto (Bld) [#/Vol]Ordered By: Jose Alfredo Brantley on 32-96-1730Steiupvbggd (Bld) [#/Vol]Lymphocytes [#/volume] in Blood by Automated countGerman HospitalLymphocytes/100 WBC Auto (Bld)Ordered By: Jose Alfredo Brantley on 97-11-4849Egueegpyarm/100 WBC (Bld)Lymphocytes/100 leukocytes in Blood by Automated countGerman HospitalLymphocytes/100 WBC Manual cnt (Bld)Ordered By: Jose Alfredo Brantley on 73-78-9559Arijbbalbfw/100 WBC (Bld) Lymphocytes/100 leukocytes in Blood by Manual iifymKkf52-03YvzalhqmnOhioHealth Doctors HospitalH Auto (RBC) [Entitic mass]Ordered By: Jose Alfredo Brantley on 06-18-2024 MCH (RBC) [Entitic mass]MCH [Entitic mass] by Automated cbtbyDha97.5-35.2 [facility] HospitalHC Auto (RBC) [Mass/Vol]Ordered By: Jose Alfredo Brantley on 18-71-7715IVJF (RBC) [Mass/Vol]MCHC [Mass/volume] by Automated count 32.5-35.6FTrinity Health SystemMCV Auto (RBC) [Entitic vol]Ordered By: Jose Alfredo Brantley on 52-75-4119QEM (RBC) [Entitic vol]MCV [Entitic volume] by Automated ntjqoMmy98.5-101German HospitalMacrocytes LM Ql (Bld)Ordered By: Jose Alfredo Brantley on 15-00-8609Borkatvtge Ql (Bld)Macrocytes [Presence] in Blood by Light microscopyGerman Hospital Microcytes LM Ql (Bld)Ordered By: Jose Alfredo Brantley on 66-04-2920Ddabjhmbgs Ql (Bld) Microcytes [Presence] in Blood by Light microscopyGerman HospitalMonocytes Auto (Bld) [#/Vol]Ordered By: Jose Alfredo Brantley on 15-43-7386Vairligne (Bld) [#/Vol]Automated blood monocyte countGerman Hospital Monocytes/100 WBC Auto (Bld)Ordered By: Jose Alfredo Brantley on 19-23-0227Drxutacib/100 WBC (Bld)Automated monocyte %German HospitalMonocytes/100 WBC Manual cnt (Bld)Ordered By: Jose Alfredo Brantley on 46-55-8551Qoklsxokb/100 WBC (Bld) Monocytes/100 leukocytes in Blood by Manual countHigh2-11German HospitalNeutrophils Auto (Bld) [#/Vol]Ordered By: Jose Alfredo Brantley on 53-75-0831Yortqfxnfdo (Bld) [#/Vol]Neutrophils [#/volume] in Blood by Automated countGerman HospitalNeutrophils/100 WBC Auto (Bld)Ordered By: Jose Alfredo Brantley on 40-57-1554Belhmzckyui/100 WBC (Bld)Automated neutrophil % German HospitalNo Panel InformationOrdered By: Jose Alfredo Brantley on 96-74-8357Inlmhcn Glucose #[address]/[facility] CenterBedside Glucose CommentSee commentGerman HospitalComment on above:Glu2: Will Repeat TestEstimated GFR (CKD-EPI)> 60.0 mL/MinGerman HospitalPharmacy Creatinine Clearance (Chem50.22German HospitalNucleated erythrocytes [Presence] in Blood by Automated countOrdered By: Jose Alfredo Brantley on 35-24-4673Echhjqdpg RBC Auto Ql (Bld)Nucleated erythrocytes [Presence] in Blood by Automated countGerman HospitalPlatelet adequacy [Presence] in Blood by Light microscopyOrdered By: Jose Alfredo Brantley on 79-33-6068Kwqenslhm LM Ql (Bld)Platelet adequacy [Presence] in Blood by Light microscopyNormalGerman HospitalPlatelet mean volume Auto (Bld) [Entitic vol]Ordered By: Jose Alfredo Brantley on 72-26-1569Cejqrzbl mean volume (Bld) [Entitic vol]Platelet mean volume [Entitic volume] in Blood by Automated count6.6-10.1FTrinity Health SystemPlatelet morphology finding [Identifier] in BloodOrdered By: Jose Alfredo Brantley on 52-10-9085Zgrodfmo morphology finding Nom (Bld)Platelet morphology finding [Identifier] in Blood German HospitalPlatelets Auto (Bld) [#/Vol]Ordered By: Jose Alfredo Brantley on 15-33-6868Qabydndcr (Bld) [#/Vol]Platelets [#/volume] in Blood by Automated otsgk359-281GzsemmosnBlanchard Valley Health System [facility] Large [Presence] in Blood by Light microscopyOrdered By: Jose Alfredo Brantley on 06-18-2024 Platelets Large LM Ql (Bld)Platelets Large [Presence] in Blood by Light microscopyGerman HospitalPoikilocytosis [Presence] in Blood by Light microscopyOrdered By: Jose Alfredo Brantley on 07-70-3255Ztrpcexfdbtahz LM Ql (Bld) Poikilocytosis [Presence] in Blood by Light microscopyGerman HospitalPolychromasia [Presence] in Blood by Light microscopyOrdered By: Jose Alfredo Brantley on 35-64-5710Mntzbizjikzqg LM Ql (Bld)Polychromasia [Presence] in Blood by Light microscopyGerman HospitalPotassium [Moles/volume] in Serum or PlasmaOrdered By: Jose Alfredo Brantley on 53-25-1321Jogweqhxo [Moles/Vol] Potassium [Moles/volume] in Serum or Plasma3.5-5.1FTrinity Health SystemProtein [Mass/volume] in Serum or PlasmaOrdered By: Jose Alfredo Brantley on 94-03-3353Ujfxqtm [Mass/Vol]Protein [Mass/volume] in Serum or Plasma6.4-8.9 German HospitalRBC Auto (Bld) [#/Vol]Ordered By: Jose Alfredo Brantley on 10-22-0298YAA (Bld) [#/Vol]Erythrocytes [#/volume] in Blood by Automated count3.90-5.60[facility] Medical CenterSchistocytes [Presence] in Blood by Light microscopyOrdered By: Jose Alfredo Brantley on 48-42-9388Rrtpgmpoqkwb LM Ql (Bld) Schistocytes [Presence] in Blood by Light microscopyUC Medical Centeregmented neutrophils/100 WBC Manual cnt (Bld)Ordered By: Jose Alfredo Brantley on 24-20-1720Zybqxvedf neutrophils/100 WBC (Bld)Manual blood segmented neutrophils/100 qxpffobnsb27-11CbybghjvoUC Medical Centererum or plasma albumin/globulin mass ratioOrdered By: Jose Alfredo Brantley on 69-39-6906Xrszbcy/Globulin [Mass ratio]Serum or plasma albumin/globulin mass ratioUC Medical Centererum or plasma anion gap determinationOrdered By: Jose Alfredo Brantley on 65-10-4357Vjfuf gap [Moles/Vol]Serum or plasma anion gap determination6.0-15.0 UC Medical Centerodium [Moles/volume] in Serum or PlasmaOrdered By: Jose Alfredo Brantley on 59-61-5570Pazdbg [Moles/Vol]Sodium [Moles/volume] in Serum or Cucjkj794-868BmlgeumuhGerman HospitalTarget cells [Presence] in Blood by Light microscopyOrdered By: Jose Alfredo Brantley on 69-94-4834Biybre cells LM Ql (Bld)Target cellsGerman HospitalUrea nitrogen [Mass/volume] in Serum or PlasmaOrdered By: Jose Alfredo Brantley on 99-65-1154Lzso nitrogen [Mass/Vol] Urea nitrogen [Mass/volume] in Serum or Plasma7-25German HospitalWBC Auto (Bld) [#/Vol]Ordered By: Jose Alfredo Brantley on 67-06-9026UTM (Bld) [#/Vol]Leukocytes [#/volume] in Blood by Automated count4.1-10.5FTrinity Health SystemComprehensive Metabolic Panelon 11-00-3532Aefhuxl [Mass/Vol]3.3 g/dLLow3.5-5.7The [facility] Physician GroupComment on above: Performed By: #### CMP, SCAN CBC, PHOS, MG ####[facility] [address] [place] [address] USAAlbumin/Globulin [Mass ratio]1.2 {ratio}NormalThe [facility] Health Physician GroupComment on above:Performed By: #### CMP, SCAN CBC, PHOS, MG ####[place] [address] USAALP [Catalytic activity/Vol]109 U/SXypi97-964Can [facility] Physician GroupComment on above:Performed By: #### CMP, SCAN CBC, PHOS, MG ####[place] [address] USAALT [Catalytic activity/Vol]12 U/LNormal7-52The [facility] Comment on above:Performed By: #### CMP, SCAN CBC, PHOS, MG ####[place] [address] USAAnion gap [Moles/Vol] 11.1 mmol/LNormal6.0-15.0The [facility] Health Physician GroupComment on above:Performed By: #### CMP, SCAN CBC, PHOS, MG ####[place] [address] USAAST [Catalytic activity/Vol]20 U/SRxzdbt78-79Xhw [facility] Physician GroupComment on above:Performed By: #### CMP, SCAN CBC, PHOS, MG ####[place] [address] USABilirubin [Mass/Vol]0.4 mg/dLNormal0.3-1.0The [facility] Physician [facility] Comment on above:Performed By: #### CMP, SCAN CBC, PHOS, MG ####[place] [address] USACalcium [Mass/Vol]8.4 mg/dLLow8.6-10.3The [facility] Physician GroupComment on above:Performed By: #### CMP, SCAN CBC, PHOS, MG ####[place] [address] USAChloride [Moles/Vol]101 mmol/DOdrcfv17-979Xec [facility] Physician GroupComment on above:Performed By: #### CMP, SCAN CBC, PHOS, MG ####[facility] [place] [id number] USACO2 [Moles/Vol]27.8 mmol/UTunfph74.0-31.0The [facility] Physician GroupComment on above:Performed By: #### CMP, SCAN CBC, PHOS, MG ####[place] [address] [place] [address] USACreatinine [Mass/Vol]0.79 mg/dLNormal0.70-1.30The [facility] Physician GroupComment on above:Performed By: #### CMP, SCAN CBC, PHOS, MG ####[place] [address] [place] [address] USACreatinine Clr Calc Scoahdks19.66NormMemorial Regional Hospital Physician GroupComment on above:Performed By: #### CMP, SCAN CBC, PHOS, MG ####[place] [address] [place] [address] [place] GFR/1.73 sq M.predicted MDRD (S/P/Bld) [Vol rate/Area]mL/min/{1.73_m2}NormalThe [facility] Physician GroupComment on above:Performed By: #### CMP, SCAN CBC, PHOS, MG ####[place] [address] [place] [address] USAGlobulin (S) [Mass/Vol]2.8 g/dLNoUNC Health Blue Ridge - Valdese Physician [facility] CentralComment on above:Performed By: #### CMP, SCAN CBC, PHOS, MG ####[place] [address] USAGlucose [Mass/Vol]79 mg/xJJgknwe45-072 The [facility] Health Physician GroupComment on above:Result Comment: Random Glucose Reference Range is dependent on time and content of last meal. Glucose of more than 200 mg/dL in a nonstressed, ambulatory subject supports the diagnosis of Diabetes Mellitus. ADA recommended reference rangePerformed By: #### CMP, SCAN CBC, PHOS, MG ####[place] [address] [place] [phone] [place] Potassium [Moles/Vol]3.9 mmol/LNormal3.5-5.1The [facility] Physician GroupComment on above:Performed By: #### CMP, SCAN CBC, PHOS, MG ####[place] [address] USAProtein [Mass/Vol]6.1 g/dLLow 6.4-8.9The [facility] Health Physician GroupComment on above:Performed By: #### CMP, SCAN CBC, PHOS, MG ####[place] [address] USASodium [Moles/Vol]136 mmol/OPkgkwm724-631Tcf [facility] Physician GroupComment on above:Performed By: #### CMP, SCAN CBC, PHOS, MG ####[place] [address] USAUrea nitrogen [Mass/Vol]22 mg/dLNormal7-25The [facility] Health Physician GroupComment on above: Performed By: #### CMP, SCAN CBC, PHOS, MG ####[place] [id number] USAGlucose Poct Glucometerson 06-17-2024 Puspera8Szk2: Cleaned MeterMedical Center Clinic Physician GroupComment on above: Result Comment: PERFORMED BY: [place] [address] PATHOLOGIST BIOMATHEMATICIAN ANDRE PERALTA M.D.Performed By: #### GLULS #### Point of Care testing ,Glucose [Mass/Vol]229 mg/dLNoUNC Health Blue Ridge - Valdese Physician GroupComment on above: Result Comment: Random Glucose Reference Range is dependent on time and content of last meal. Glucose of more than 200 mg/dL in a nonstressed, ambulatory subject supports the diagnosis of Diabetes Mellitus.Performed By: #### GLULS #### Point of Care testing ,Gcgkzdd4Wil6: Cleaned MeterMedical Center Clinic Physician GroupComment on above: Result Comment: PERFORMED BY: [place] [address] PATHOLOGIST BIOMATHEMATICIAN ANDRE PERALTA M.D.Performed By: #### GLULS #### Point of Care testing ,Glucose [Mass/Vol]250 mg/dLMedical Center Clinic Physician GroupComment on above: Result Comment: Random Glucose Reference Range is dependent on time and content of last meal. Glucose of more than 200 mg/dL in a nonstressed, ambulatory subject supports the diagnosis of Diabetes Mellitus.Performed By: #### GLULS #### Point of Care testing ,Glucose [Mass/Vol]352 mg/dLMedical Center Clinic Physician GroupComment on above: Result Comment: Random Glucose Reference Range is dependent on time and content of last meal. Glucose of more than 200 mg/dL in a nonstressed, ambulatory subject supports the diagnosis of Diabetes Mellitus. PERFORMED BY: [place] [address] PATHOLOGIST BIOMATHEMATICIAN ANDRE PERALTA M.D.Performed By: #### GLULS ####Point of Care testing, Glucose [Mass/Vol]82 mg/dLMedical Center Clinic Physician GroupComment on above: Result Comment: Random Glucose Reference Range is dependent on time and content of last meal. Glucose of more than 200 mg/dL in a nonstressed, ambulatory subject supports the diagnosis of Diabetes Mellitus. PERFORMED BY: [place] [address] PATHOLOGIST BIOMATHEMATICIAN ANDRE PERALTA M.D.Performed By: #### GLULS ####Point of Care testing, Magnesiumon 35-11-7388Xxcbojxfc [Mass/Vol]1.7 mg/dLLow1.9-2.7The [facility] Health Physician GroupComment on above:Result Comment: PERFORMED BY: [place] [address] PATHOLOGIST BIOMATHEMATICIAN ANDRE PERALTA M.D.Performed By: #### CMP, SCAN CBC, PHOS, MG ####[facility] [address] [place] [address] [facility] Magnesium [Mass/volume] in Serum or PlasmaOrdered By: Jose Alfredo Brantley on 06-17-2024 Magnesium [Mass/Vol]Magnesium [Mass/volume] in Serum or PlasmaLow1.9-2.7 German HospitalPhosphate [Mass/volume] in Serum or Plasma Ordered By: Jose Alfredo Brantley on 46-57-5619Nvroxjuua [Mass/Vol]Phosphate [Mass/volume] in Serum or Plasma2.5-4.5FTrinity Health SystemPhosphoruson 93-50-4152Yjqhvuhzg [Mass/Vol]3.7 mg/dLNormal2.5-4.5The [facility] Physician GroupComment on above:Performed By: #### CMP, SCAN CBC, PHOS, MG ####[place] [address] USAScan and CBCon 38-90-8787ThapifbwqkfjTamqgznrDqeubrIsu [facility] Physician GroupComment on above:Performed By: #### CMP, SCAN CBC, PHOS, MG ####[place] [address] USAAnisocytosis Ql (Bld)[facility] Physician [facility] CentralComment on above:Performed By: #### CMP, SCAN CBC, PHOS, MG ####[place] [address] USABasophils (Bld) [#/Vol]0.1 10*3/uLNormal0.0-0.2The [facility] Comment on above:Performed By: #### CMP, SCAN CBC, PHOS, MG ####[place] [address] USABasophils/100 WBC (Bld)0.9 %Normal.The [facility] Health Physician GroupComment on above:Performed By: #### CMP, SCAN CBC, PHOS, MG ####[place] [id number] USACrenated RBCSlightMedical Center Clinic Physician [facility] CentralComment on above:Performed By: #### CMP, SCAN CBC, PHOS, MG ####[place] [address] USAEosinophils (Bld) [#/Vol]0.2 10*3/uLNormal0.0-0.45The [facility] Health Physician GroupComment on above: Performed By: #### CMP, SCAN CBC, PHOS, MG ####[place] [address] USAEosinophils/100 WBC (Bld)2.0 %Normal. The [facility] Health Physician GroupComment on above:Performed By: #### CMP, SCAN CBC, PHOS, MG ####[place] [address] USAErythrocyte distribution width (RBC) [Ratio]20.3 %High12.0-14.8The [facility] Health Physician GroupComment on above:Performed By: #### CMP, SCAN CBC, PHOS, MG ####[place] [address] [place] Hematocrit (Bld) [Volume fraction]35.1 %Low38.8-50.0The [facility] Health Physician GroupComment on above:Performed By: #### CMP, SCAN CBC, PHOS, MG ####[place] [address] USAHemoglobin (Bld) [Mass/Vol]11.5 g/dLLow13.0-17.0The [facility] Health Physician GroupComment on above: Performed By: #### CMP, SCAN CBC, PHOS, MG ####[place] [address] USAHypochromasiaModerateNormMemorial Regional Hospital Physician GroupComment on above:Performed By: #### CMP, SCAN CBC, PHOS, MG ####[place] [id number] USALarge PlateletsSlightNoUNC Health Blue Ridge - Valdese Physician GroupComment on above: Result Comment: PERFORMED BY: [place] [address] PATHOLOGIST BIOMATHEMATICIAN ANDRE PERALTA M.D.Performed By: #### CMP, SCAN CBC, PHOS, MG ####[place] [address] [place] Lymphocytes (Bld) [#/Vol]1.7 10*3/uLNormal1.00-4.8The [facility] Comment on above:Performed By: #### CMP, SCAN CBC, PHOS, MG ####[place] [address] USALymphocytes/100 WBC (Bld)19.4 %Normal.The [facility] Health Physician GroupComment on above:Performed By: #### CMP, SCAN CBC, PHOS, MG ####[address] Ferguson StreetMCH (RBC) [Entitic mass]25.5 pgLow27.5-35.2The [facility] Health Physician GroupComment on above:Performed By: #### CMP, SCAN CBC, PHOS, MG ####[address] StreetV (RBC) [Entitic vol]77.8 fLLow83.5-101The [facility] Health Physician GroupComment on above:Performed By: #### CMP, SCAN CBC, PHOS, MG ####[place] [address] USAMean Corpuscular HGB Conc32.8 g/vFCmtgwn34.5-35.6The [facility] Health Physician GroupComment on above:Performed By: #### CMP, SCAN CBC, PHOS, MG ####[place] [address] USAMicrocytosisSlightNormalThe [facility] Health Physician GroupComment on above:Performed By: #### CMP, SCAN CBC, PHOS, MG ####[place] [address] USAMonocytes (Bld) [#/Vol]1.2 10*3/uLHigh0.0-0.8The [facility] Health Physician GroupComment on above: Performed By: #### CMP, SCAN CBC, PHOS, MG ####[place] [address] USAMonocytes/100 WBC (Bld)14.4 %Normal. The [facility] Health Physician GroupComment on above:Performed By: #### CMP, SCAN CBC, PHOS, MG ####[place] [address] USANeutrophils (Bld) [#/Vol]5.4 10*3/uLNormal1.8-7.7The [facility] Health Physician GroupComment on above:Performed By: #### CMP, SCAN CBC, PHOS, MG ####[place] [address] USANeutrophils/100 WBC (Bld)63.3 %Normal.The [facility] Health Physician GroupComment on above:Performed By: #### CMP, SCAN CBC, PHOS, MG ####[place] [address] USANRBC%0.0 /100{WBC}Normal0-0.5The [facility] Health Physician GroupComment on above:Performed By: #### CMP, SCAN CBC, PHOS, MG ####[place] [address] USAPlatelet Estimate NormalNormalMedical Center Clinic Physician GroupComment on above:Performed By: #### CMP, SCAN CBC, PHOS, MG ####[place] [phone] USAPlatelet mean volume (Bld) [Entitic vol]10.2 fLHigh 6.6-10.1The [facility] Health Physician GroupComment on above:Performed By: #### CMP, SCAN CBC, PHOS, MG ####[place] [phone] USAPlatelets (Bld) [#/Vol]213 10*3/uFWpnyvv097-260Czp [facility] Physician GroupComment on above:Performed By: #### CMP, SCAN CBC, PHOS, MG ####[place] [address] [place] PoikilocytosisMarkedNormMemorial Regional Hospital Physician GroupComment on above: Performed By: #### CMP, SCAN CBC, PHOS, MG ####[facility] [place] [address] USAPolychromasiaSlightMedical Center Clinic Physician GroupComment on above:Performed By: #### CMP, SCAN CBC, PHOS, MG ####[place] [address] [place] [address] USARBC (Bld) [#/Vol]4.52 10*6/uLNormal3.90-5.60The [facility] Health Physician GroupComment on above:Performed By: #### CMP, SCAN CBC, PHOS, MG ####[address] [address] USASchistocytesCoral Gables Hospital Physician GroupComment on above:Performed By: #### CMP, SCAN CBC, PHOS, MG ####[address] [address] USATarget CellsCoral Gables Hospital Physician GroupComment on above: Performed By: #### CMP, SCAN CBC, PHOS, MG ####[address] [address] USAWBC (Bld) [#/Vol]8.5 10*3/uLNormal 4.1-10.5The [facility] Health Physician GroupComment on above:Performed By: #### CMP, SCAN CBC, PHOS, MG ####[address] [address] USABacteria identified Aer cx Nom (Unsp spec)Ordered By: Vargas Reis on 86-66-3696Rqwvpmuwvve Wound CultureAbnoKettering Health Dayton Blood Cultureon 39-36-2141Fxpkkvdl identified Cx Nom (Bld)NO GROWTH 5 DAYS PERFORMED BY: [facility] [address] [place] [id number] PATHOLOGIST BIOMATHEMATICIAN ANDRE PERALTA M.D.NormalThe [facility] Health Physician GroupComment on above: Performed By: #### GLULS #### Point of Care testing ,Bacteria identified Cx Nom (Bld)NO GROWTH 5 DAYS PERFORMED BY: [address] [address] PATHOLOGIST BIOMATHEMATICIAN ANDRE PERALTA M.D.[facility] Physician GroupComment on above: Performed By: #### GLULS #### Point of Care testing ,Bacteria identified Cx Nom (Bld)NO GROWTH 5 DAYS PERFORMED BY: [address] [address] PATHOLOGIST BIOMATHEMATICIAN ANDRE PERALTA M.D.[facility] Clinic Physician GroupComment on above: Performed By: #### GLULS #### Point of Care testing ,CT abdomen w conon 91-57-4787PM abdomen w [facility] [place] [address] [place] [address] Scan Report Signed Patient: Manolo Roche MR#: [id number] 353 : 1935 Acct:[id number] Age/Sex: 89 / M ADM Date: 06/16/24 Loc: ER Room: Type: [facility] ER Attending Dr: Copies to: Vargas [...] Sheldon Johnson M.D.06/16/2024 3:48 PM Dictation Location: [place] [address] Transcribed By: [facility] 06/16/24 1548 Dictated By: Sheldon Jhonson DO 06/16/24 1535 Signed By: 06/16/24 1548NoUNC Health Blue Ridge [facility] Physician GroupComprehensive Metabolic Panelon 16-21-8169Ahabfab [Mass/Vol]3.5 g/dLNormal3.5-5.7The [facility] Comment on above:Performed By: #### GLULS #### Point of Care testing ,Albumin/Globulin [Mass ratio]1.2 {ratio}NormalThe [facility] Comment on above:Performed By: #### GLULS #### Point of Care testing ,ALP [Catalytic activity/Vol]116 U/FHjoz98-842Inl [facility] Comment on above:Performed By: #### GLULS #### Point of Care testing ,ALT [Catalytic activity/Vol]17 U/LNormal7-52The [facility] Comment on above:Performed By: #### GLULS #### Point of Care testing ,Anion gap [Moles/Vol]10.2 mmol/LNormal6.0-15.0The [facility] Comment on above:Performed By: #### GLULS #### Point of Care testing ,AST [Catalytic activity/Vol]24 U/KNljryk11-64Gms [facility] Comment on above:Performed By: #### GLULS #### Point of Care testing ,Bilirubin [Mass/Vol]0.4 mg/dLNormal0.3-1.0The [facility] Health Physician GroupComment on above:Performed By: #### GLULS #### Point of Care testing ,Calcium [Mass/Vol]8.8 mg/dLNormal8.6-10.3The [facility] Health Physician GroupComment on above:Performed By: #### GLULS #### Point of Care testing ,Chloride [Moles/Vol]98 mmol/IYnxlnj83-953Lvr [facility] Physician GroupComment on above:Performed By: #### GLULS #### Point of Care testing ,CO2 [Moles/Vol]30.4 mmol/PHsnujm74.0-31.0The [facility] Health Physician GroupComment on above:Performed By: #### GLULS #### Point of Care testing ,Creatinine [Mass/Vol]1.10 mg/dLNormal0.70-1.30The [facility] Comment on above:Performed By: #### GLULS #### Point of Care testing ,Creatinine Clr Calc Xfqwzzos65.08NormMemorial Regional Hospital Physician GroupComment on above:Result Comment: PERFORMED BY: [address] [place] [address] PATHOLOGIST BIOMATHEMATICIAN ANDRE PERALTA M.D.Performed By: #### GLULS #### Point of Care testing ,GFR/1.73 sq M.predicted MDRD (S/P/Bld) [Vol rate/Area]mL/min/{1.73_m2}NormalThe [facility] Health Physician GroupComment on above:Performed By: #### GLULS #### Point of Care testing ,Globulin (S) [Mass/Vol]3.0 g/dLNoUNC Health Blue Ridge - Valdese Physician GroupComment on above:Performed By: #### GLULS #### Point of Care testing ,Glucose [Mass/Vol]118 mg/tCBwmo44-568Raw [facility] Physician GroupComment on above:Result [...] #### Point of Care testing ,Sodium [Moles/Vol]134 mmol/JAfv398-811Juy [facility] Physician GroupComment on above:Performed By: #### GLULS #### Point of Care testing ,Urea nitrogen [Mass/Vol]29 mg/dLHigh7-25The [facility] Health Physician GroupComment on above:Performed By: #### GLULS #### Point of Care testing ,ECG 12 lead ECGon 53-04-7225XHK 12 lead ECGST. [place] [address] Electrocardiograph Report Signed Patient: Manolo Roche MR#: [id number] 353 : 1935 Acct:[id number] Age/Sex: 89 / M ADM Date: 06/16/24 Loc: Room: [address] [place] [address] Type: ADM IN Attending Dr: Jose Alfredo [...] Anterior leads Confirmed by MARVIN KONG DO ([id number]) on 06/16/2024 7:24:37 PM Referred By: Electronically Signed By: MARVIN KONG DO Transcribed By: MUS Signed By Marvin Kong DO 06/16 1924[facility] Physician [facility] CentralGlucose Poct Glucometerson 06-16-2024 Glucose [Mass/Vol]385 mg/dLNorthfield City HospitalComment on above: Result Comment: Random Glucose Reference Range is dependent on time and content of last meal. Glucose of more than 200 mg/dL in a nonstressed, ambulatory subject supports the diagnosis of Diabetes Mellitus. PERFORMED BY: [address] [address] PATHOLOGIST BIOMATHEMATICIAN ANDRE PERALTA M.D.Performed By: #### GLULS ####Point of Care testing, Osanfqo2IyclmyV[address] Physician GroupComment on above:Result Comment: Glu2: Will Repeat TestPerformed By: #### GLULS ####Point of Care testing, Nmgvemj7AHXG NOTIFY DR/RNNoUNC Health Blue Ridge - Valdese Physician GroupComment on above: Result Comment: PERFORMED BY: [address] [place] [address] PATHOLOGIST BIOMATHEMATICIAN ANDRE PERALTA M.D.Performed By: #### GLULS ####Point of Care testing, Glucose [Mass/Vol]401 mg/dLOff scale highJackson South Medical Center Physician GroupComment on above:Result Comment: Random Glucose Reference Range is dependent on time and content of last meal. Glucose of more than 200 mg/dL in a nonstressed, ambulatory subject supports the diagnosis of Diabetes Mellitus.Performed By: #### GLULS ####Point of Care testing,Helmet cells [Presence] in Blood by Light microscopyOrdered By: Vargas Reis on 01-75-6432Tjvtjt cells LM Ql (Bld)Helmet cell detectionGerman HospitalLaboratory - Microbiology and Antimicrobial susceptibilityOrdered By: Marvin Kong on 31-76-0699Hvdanxpn identified Cx Nom (Bld)NO GROWTH 5 DAYS German HospitalBacteria identified Cx Nom (Bld)NO GROWTH 5 DAYSGerman HospitalLaboratory - Microbiology and Antimicrobial susceptibilityOrdered By: Vargas Reis on 80-08-7759Tjrutbqp identified Cx Nom (Bld)NO GROWTH 5 DAYSGerman HospitalLactate [Moles/volume] in Serum or PlasmaOrdered By: Marvin Kong on 83-67-4156Qvbsbkg [Moles/Vol] Lactate [Moles/volume] in Serum or Plasma0.5-2.2FTrinity Health SystemLactic Acidon 64-96-5931Mdijhpg [Moles/Vol]1.0 mmol/LNormal0.5-2.2The [facility] Physician [facility] CentralComment on above:Result Comment: PERFORMED BY: [address] [place] [address] PATHOLOGIST BIOMATHEMATICIAN ANDRE PERALTA M.D.Performed By: #### GLULS #### Point of Care testing ,Monocyte distribution width [Entitic volume] in Blood by AutomatedOrdered By: Vargas Reis on 36-06-5114Opipnbne distribution width Auto (Bld) [Entitic vol] Monocyte distribution width [Entitic volume] in Blood by AutomatedHigh0.00-20.00 German HospitalComment on above:For adults in ED, MDW > 20.0 may be associated with a higher risk of sepsis during the first 12 hrs of hospital admissionScan and CBCon 16-33-9156KafgtjmhwpzaXfwexdGvaxdbSpb Firelands Physician GroupComment on above:Performed By: #### GLULS #### Point of Care testing ,Anisocytosis Ql (Bld)[facility] Physician [facility] CentralComment on above: Performed By: #### GLULS #### Point of Care testing ,Basophils (Bld) [#/Vol]0.0 10*3/uLNormal0.0-0.2The [facility] Comment on above:Result Comment: PERFORMED BY: [facility] [address] [place] [address] PATHOLOGIST BIOMATHEMATICIAN ANDRE PERALTA M.D.Performed By: #### GLULS #### Point of Care testing ,Basophils/100 WBC (Bld)0.4 %Normal.The [facility] Physician GroupComment on above:Performed By: #### GLULS #### Point of Care testing ,Crenated RBCSNovant Health Charlotte Orthopaedic Hospital Physician GroupComment on above:Performed By: #### GLULS #### Point of Care testing ,Eosinophils (Bld) [#/Vol]0.1 10*3/uLNormal0.0-0.45The [facility] Comment on above:Performed By: #### GLULS #### Point of Care testing ,Eosinophils/100 WBC (Bld)0.5 %Normal.The [facility] Physician GroupComment on above:Performed By: #### GLULS #### Point of Care testing ,Erythrocyte distribution width (RBC) [Ratio]20.2 %High12.0-14.8The [facility] Physician GroupComment on above:Performed By: #### GLULS #### Point of Care testing ,Helmet CellsSNovant Health Charlotte Orthopaedic Hospital Physician GroupComment on above:Performed By: #### GLULS #### Point of Care testing ,Hematocrit (Bld) [Volume fraction]36.1 %Low38.8-50.0The [facility] Physician GroupComment on above:Performed By: #### GLULS #### Point of Care testing ,Hemoglobin (Bld) [Mass/Vol]11.9 g/dLLow13.0-17.0The [facility] Comment on above:Performed By: #### GLULS #### Point of Care testing ,HypochromasiaModerateMedical Center Clinic Physician GroupComment on above: Performed By: #### GLULS #### Point of Care testing ,Lymphocytes (Bld) [#/Vol]2.3 10*3/uLNormal1.00-4.8The [facility] Comment on above:Performed By: #### GLULS #### Point of Care testing ,Lymphocytes/100 WBC (Bld)22.7 %Normal.The [facility] Physician GroupComment on above:Performed By: #### GLULS #### Point of Care testing ,MacrocytosisSNovant Health Charlotte Orthopaedic Hospital Physician GroupComment on above:Performed By: #### GLULS #### Point of Care testing ,MCH (RBC) [Entitic mass]25.5 pgLow27.5-35.2The [facility] Physician GroupComment on above:Performed By: #### GLULS #### Point of Care testing ,MCV (RBC) [Entitic vol]77.4 fLLow83.5-101The [facility] Physician GroupComment on above:Performed By: #### GLULS #### Point of Care testing ,Mean Corpuscular HGB Conc33.0 g/zQSscglq36.5-35.6The [facility] Comment on above:Performed By: #### GLULS #### Point of Care testing ,MicrocytosisSNovant Health Charlotte Orthopaedic Hospital Physician GroupComment on above:Performed By: #### [...] (Bld) [#/Vol]6.5 10*3/uLNormal1.8-7.7The [facility] Comment on above:Performed By: #### GLULS #### Point of Care testing ,Neutrophils/100 WBC (Bld)64.9 %Normal.The [facility] Physician GroupComment on above:Performed By: #### GLULS #### Point of Care testing ,NRBC%0.1 /100{WBC}Normal0-0.5The [facility] Physician GroupComment on above: Performed By: #### GLULS #### Point of Care testing ,Platelet EstimateNormalNormalMedical Center Clinic Physician GroupComment on above:Performed By: #### GLULS #### Point of Care testing ,Platelet mean volume (Bld) [Entitic vol]10.9 fLHigh6.6-10.1The [facility] Physician GroupComment on above:Performed By: #### GLULS #### Point of Care testing ,Platelet MorphologyNormalNormalNoUNC Health Blue Ridge - Valdese Physician GroupComment on above:Result Comment: PERFORMED BY: [facility] [place] [address] PATHOLOGIST BIOMATHEMATICIAN ANDRE PERALTA M.D.Performed By: #### GLULS #### Point of Care testing ,Platelets (Bld) [#/Vol]233 10*3/tMDviojg304-441Inc [facility] Comment on above:Performed By: #### GLULS #### Point of Care testing ,PoikilocytosisMarkedMedical Center Clinic Physician GroupComment on above: Performed By: #### GLULS #### Point of Care testing ,PolychromasiaModerateMedical Center Clinic Physician GroupComment on above: Performed By: #### GLULS #### Point of Care testing ,RBC (Bld) [#/Vol]4.67 10*6/uLNormal3.90-5.60The [facility]ician [facility] Comment on above:Performed By: #### GLULS #### Point of Care testing ,SchistocytesModerateMedical Center Clinic Physician GroupComment on above: Performed By: #### GLULS #### Point of Care testing ,Target CellsModerateMedical Center Clinic Physician GroupComment on above: Performed By: #### GLULS #### Point of Care testing ,WBC (Bld) [#/Vol]10.1 10*3/uLNormal4.1-10.5The [facility] Physician GroupComment on above:Performed By: #### GLULS #### Point of Care testing ,Superficial Wound Cultureon 53-01-0937Peyirivisme Wound CultureORGANISM: Staphylococcus aureus (O:STAAUR) Quantity of [...] RESISTANT TO ALL B-LACTAM DRUGS. PERFORMED BY: [address] [address] PATHOLOGIST BIOMATHEMATICIAN ANDRE PERALTA M.D.NormalThe [facility] Physician GroupComment on above: Performed By: #### GLULS #### Point of Care testing ,Basic Metabolic Panelon 88-68-6398Nwklh gap [Moles/Vol]11.5 mmol/LNormal 6.0-15.0The [facility] Physician GroupComment on above:Performed By: #### GLULS #### Point of Care testing ,Calcium [Mass/Vol]8.6 mg/dLNormal8.6-10.3The [facility] Physician GroupComment on above:Performed By: #### GLULS #### Point of Care testing ,Chloride [Moles/Vol]103 mmol/DYpyhlm34-659Asl [facility] Physician GroupComment on above:Performed By: #### GLULS #### Point of Care testing ,CO2 [Moles/Vol]27.5 mmol/IWkvzxe34.0-31.0The [facility] Physician GroupComment on above:Performed By: #### GLULS #### Point of Care testing ,Creatinine [Mass/Vol]0.75 mg/dLNormal0.70-1.30The [facility] Comment on above:Performed By: #### GLULS #### Point of Care testing ,Creatinine Clr Calc Djxvqcql81.91NormalThe [facility] Physician GroupComment on above:Result Comment: PERFORMED BY: [facility] [address] [place] [address] PATHOLOGIST BIOMATHEMATICIAN ANDRE PERALTA M.D.Performed By: #### GLULS #### Point of Care testing ,GFR/1.73 sq M.predicted MDRD (S/P/Bld) [Vol rate/Area]mL/min/{1.73_m2}NormalThe [facility] Physician GroupComment on above:Performed By: #### GLULS #### Point of Care testing ,Glucose [Mass/Vol]80 mg/rYDfkoyo49-593Csq [facility] Physician GroupComment on above:Result [...] #### Point of Care testing ,Sodium [Moles/Vol]138 mmol/JZunmsb930-943Neg [facility] Physician GroupComment on above:Performed By: #### GLULS #### Point of Care testing ,Urea nitrogen [Mass/Vol]19 mg/dLNormal7-25The [facility] Physician GroupComment on above:Performed By: #### GLULS #### Point of Care testing ,Calcium [Mass/volume] in Serum or PlasmaOrdered By: Mikel Root on 46-04-5978Xxttwww [Mass/Vol]Calcium [Mass/volume] in Serum or Plasma8.6-10.3 German HospitalCarbon dioxide, total [Moles/volume] in Serum or PlasmaOrdered By: Mikel Padillaed on 93-32-5036RA0 [Moles/Vol]Carbon dioxide, total [Moles/volume] in Serum or Wwmfrd40.0-31.0German HospitalChloride [Moles/volume] in Serum or PlasmaOrdered By: Mikel Padillaed on 63-67-3078Tcrgftyd [Moles/Vol]Chloride [Moles/volume] in Serum or Jqzhtk19-614OxxtixileGerman HospitalCreatinine [Mass/volume] in Serum or PlasmaOrdered By: Mikel Root on 72-98-9999Togrdgungh [Mass/Vol] Creatinine [Mass/volume] in Serum or Plasma0.70-1.30German HospitalGlucose Glucometer (BldC) [Mass/Vol]Ordered By: Mikel Root on 24-90-9018Kczthnk [Mass/Vol]Capillary blood glucose measurement by glucometer (mass/volume)German HospitalComment on above:Random Glucose Reference Range is dependent on time and content of last meal. Glucose of more than 200 mg/dL in a nonstressed, ambulatory subject supports the diagnosis of Diabetes Mellitus.Glucose Poct Glucometerson 77-60-8454Esycqop [Mass/Vol]87 mg/dLNoUNC Health Blue Ridge - Valdese Physician GroupComment on above:Result Comment: Random Glucose Reference Range is dependent on time and content of last meal. Glucose of more than 200 mg/dL in a nonstressed, ambulatory subject supports the diagnosis of Diabetes Mellitus. PERFORMED BY: [place] [address] [place] [address] PATHOLOGIST BIOMATHEMATICIAN ANDRE PERALTA M.D.Performed By: #### GLULS #### Point of Care testing ,Glucose [Mass/volume] in Serum or PlasmaOrdered By: Mikel Root on 56-51-1196Zhvfoby [Mass/Vol]Glucose [Mass/volume] in Serum or Rxrwma73-630 German HospitalComment on above:ADA recommended reference rangeRandom Glucose Reference Range is dependent on time and content of last meal. Glucose of more than 200 mg/dL in a nonstressed, ambulatory subject supports the diagnosisof Diabetes Mellitus.No Panel InformationOrdered By: Mikel Root on 21-73-9939Dawnpybih GFR (CKD-EPI)> 60.0 mL/MinGerman HospitalPharmacy Creatinine Clearance (Chem60.91German HospitalPotassium [Moles/volume] in Serum or PlasmaOrdered By: Mikel Root on 17-46-9704Gnjixfdic [Moles/Vol]Potassium [Moles/volume] in Serum or Plasma3.5-5.1FCleveland Clinic Medina Hospitalerum or plasma anion gap determinationOrdered By: Mikel Root on 32-97-2578Awqpc gap [Moles/Vol]Serum or plasma anion gap determination6.0-15.0 UC Medical Centerodium [Moles/volume] in Serum or PlasmaOrdered By: Mikel Root on 48-48-9169Sbshks [Moles/Vol]Sodium [Moles/volume] in Serum or Dhdeby939-281GvuwwiuicGerman HospitalUrea nitrogen [Mass/volume] in Serum or PlasmaOrdered By: Mikel Root on 18-11-1911Skeg nitrogen [Mass/Vol]Urea nitrogen [Mass/volume] in Serum or Plasma 7-25German HospitalX-ray reportOrdered By: Sofia Rosales on 28-44-2090Gqgnj reportST. [place] [address] XRay Report Signed Patient: Manolo Roche MR#: [id number] : 1935 Acct:[id number] Age/Sex: 89 / M ADM Date: 4 Loc: Room: [address] [place] [address] Type: ADM IN Attending Dr: Abdulaziz Root MD Copies to: Abdulaziz Root M.D.~ Ordering Provider: Abdulaziz Roto M.D. Date of Service: 05/25/24 XR/XR chest [...] Sofia Rosales M.D.05/25/2024 8:13 AM Dictation Location: [place] [address] Transcribed By: [facility] 05/25/24812 Dictated By: Sofia Rosales MD 05/25/24809 Signed By: 05/25/24812 [facility] Work Phone: XR chest 2V*on 64-29-4592RP chest 2V*[facility] [place] [address] XRay Report Signed Patient: Manolo Roche MR#: [id number] : 1935 Acct:[id number] Age/Sex: 89 / M ADM Date: 05/24/24 Loc: Room: [address] [place] [address] Type: ADM IN Attending Dr: Abdulaziz Root [...] Sofia Rosales M.D.05/25/2024 8:13 AM Dictation Location: [place] [address] Transcribed By: [facility] 05/25/24812 Dictated By: Sofia Rosales MD 05/25/24809 Signed By: 05/25/24812North[facility] City HospitalBasic Metabolic Panelon 91-54-5901Niyec gap [Moles/Vol]11.9 mmol/LNormal6.0-15.0The [facility] Behavior[facility] Health SystemComment on above:Performed By: #### BMP ####[place] [place] [address] USACalcium [Mass/Vol]8.8 mg/dLNormal 8.6-10.3The [facility] Physician [facility] CentralComment on above:Performed By: #### BMP ####[address] [address] [place] Chloride [Moles/Vol]103 mmol/YYjpjuq81-099Soy [facility] Physician [facility] Health CentralComment on above:Performed By: #### BMP ####[address] [address] USACO2 [Moles/Vol]27.0 mmol/SRruqvo25.0-31.0The [facility] Behavioral Health SystemComment on above:Performed By: #### BMP ####[address] [place] [address] USACreatinine [Mass/Vol] 0.82 mg/dLNormal0.70-1.30The [facility] Physician [facility] Health CentralComment on above:Performed By: #### BMP ####[place] [id number] USACreatinine Clr Calc Fsefdxts71.04NormalThe [facility] Comment on above:Result Comment: PERFORMED BY: [facility] [address] [id number] PATHOLOGIST BIOMATHEMATICIAN ANDRE PERALTA M.D.Performed By: #### BMP ####[place] [id number] USAGFR/1.73 sq M.predicted MDRD (S/P/Bld) [Vol rate/Area]mL/min/{1.73_m2}NormalThe [facility] Comment on above:Performed By: #### BMP ####[place] [address] USAGlucose [Mass/Vol]108 mg/rRWgnx29-721Sro [facility] Physician GroupComment on above:Result Comment: Random Glucose Reference Range is dependent on time and content of last meal. Glucose of more than 200 mg/dL in a nonstressed, ambulatory subject supports the diagnosis of Diabetes Mellitus. ADA recommended reference rangePerformed By: #### BMP ####[place] [address] USAPotassium [Moles/Vol]3.9 mmol/LNormal3.5-5.1The [facility] Physician GroupComment on above:Performed By: #### BMP ####[place] [address] USASodium [Moles/Vol]138 mmol/BWwukre170-579Pqn [facility] Physician GroupComment on above:Performed By: #### BMP ####[place] [address] USAUrea nitrogen [Mass/Vol]22 mg/dLNormal7-25The [facility] Physician GroupComment on above:Performed By: #### BMP ####[address] [address] USACoagulation Profileon 54-21-1841uRLN Coag (Bld) [Time]30.1 aGvmtzp57.1-36.5The [facility] Physician GroupComment on above:Result Comment: A hematocrit value greater than 55% may lead to inaccurate results in coagulation testing. Patients having hematocrit values >55% require a special collection tube for coagulation studies. Please contact the laboratory at [phone] for redraw instructions. PERFORMED BY: [facility] [address] [place] [address] PATHOLOGIST BIOMATHEMATICIAN ANDRE PERALTA M.D.Performed By: #### PP ####[address] [place] [address] USAINR Coag (PPP) [Relative time]1.1 {INR}NormalThe [facility] Physician [facility] Health CentralComment on above:Result Comment: INR Therapeutic Range A) [...] valves: 3 - 4.5Performed By: #### PP ####[address] [address] USAPT Coag (PPP) [Time]12.9 sNormal9.0-12.9The [facility] Physician [facility] Health CentralComment on above: Result Comment: A hematocrit value greater than 55% may lead to inaccurate results in coagulation testing. Patients having hematocrit values >55% require a special collection tube for coagulation studies. Please contact the laboratory at [phone] for redraw instructions.Performed By: #### PP ####[address] [place] [address] USAGlucose Poct Glucometerson 07-56-9044Rgpzehq [Mass/Vol]68 mg/dLNormUCHealth Greeley HospitalComment on above:Result Comment: Random Glucose Reference Range is dependent on time and content of last meal. Glucose of more than 200 mg/dL in a nonstressed, ambulatory subject supports the diagnosis of Diabetes Mellitus. PERFORMED BY: [facility] [address] [place] [address] PATHOLOGIST BIOMATHEMATICIAN ANDRE PERALTA M.D.Performed By: #### GLULS #### Point of Care testing ,Glucose [Mass/Vol]87 mg/dLMedical Center Clinic Physician GroupComment on above: Result Comment: Random Glucose Reference Range is dependent on time and content of last meal. Glucose of more than 200 mg/dL in a nonstressed, ambulatory subject supports the diagnosis of Diabetes Mellitus. PERFORMED BY: [address] [place] [address] PATHOLOGIST BIOMATHEMATICIAN ANDRE PERALTA M.D.Performed By: #### GLULS #### Point of Care testing ,Glucose [Mass/Vol]100 mg/dLMedical Center Clinic Physician GroupComment on above: Result Comment: Random Glucose Reference Range is dependent on time and content of last meal. Glucose of more than 200 mg/dL in a nonstressed, ambulatory subject supports the diagnosis of Diabetes Mellitus. PERFORMED BY: [address] [address] PATHOLOGIST BIOMATHEMATICIAN ANDRE PERALTA M.D.Performed By: #### GLULS #### Point of Care testing ,Yxicuhb4HlgdqfOgw [facility]lands Physician GroupComment on above:Result Comment: Glu2: Result Not Confirmed PERFORMED BY: [address] [place] [address] PATHOLOGIST BIOMATHEMATICIAN ANDRE PERALTA M.D.Performed By: #### GLULS ####Point of Care testing, Glucose [Mass/Vol]55 mg/dLOff scale [facility] Physician GroupComment on above:Result Comment: Random Glucose Reference Range is dependent on time and content of last meal. Glucose of more than 200 mg/dL in a nonstressed, ambulatory subject supports the diagnosis of Diabetes Mellitus.Performed By: #### GLULS ####Point of Care testing,INR in Platelet poor plasma by Coagulation assayOrdered By: Mikel Root on 37-99-5951WRM Coag (PPP) [Relative time]INR in Platelet poor [...] 4.5No Panel InformationOrdered By: Mikel Root on 34-70-5652Ojtlhhl Glucose CommentSee commentGerman HospitalComment on above:Glu2: Result Not ConfirmedProthrombin time (PT)Ordered By: Mikle Root on 03-11-1048LH Coag (PPP) [Time]Prothrombin time (PT)9.0-12.9German HospitalComment on above:A hematocrit value greater than 55% may lead to inaccurate results in coagulation testing. Patientshaving hematocrit values >55% require a special collection tube for coagulation studies. Please contact the laboratory at [phone] for redraw instructions.aPTT in Platelet poor plasma by Coagulation assayOrdered By: Mikel Root on 65-50-1896yMSC Coag (PPP) [Time]Activated partial thromboplastin time (aPTT) in platelet poor plasma by coagulation a25.1-36.5FTrinity Health SystemComment on above:A hematocrit value greater than 55% may lead to inaccurate results in coagulation testing. Patientshaving hematocrit values >55% require a special collection tube for coagulation studies. Please contact the laboratory at [phone] for redraw instructions.Acanthocytes [Presence] in Blood by Light microscopyOrdered By: Mikel Root on 03-20-9846Wusvfvgfpqqx LM Ql (Bld)SlightGerman HospitalAcanthocytes LM Ql (Bld)Acanthocytes [Presence] in Blood by Light microscopyGerman HospitalAnisocytosis LM Ql (Bld) Ordered By: Mikel Root on 00-17-3834Kujbmbhqsaij Ql (Bld) Anisocytosis [Presence] in Blood by Light microscopyGerman HospitalAnisocytosis [Presence] in Blood by Light microscopyOrdered By: Mikel Root on 32-38-4411Blwiaudnxjtg Ql (Bld)SlightNormalGerman HospitalComment on above:Performed By: #### BMP, DIFF CBC ####[facility] [address] [place] [address] USABasic Metabolic Panelon 82-64-7199OKP/1.73 sq M.predicted MDRD (S/P/Bld) [Vol rate/Area]mL/min/{1.73_m2}NormalThe [facility] Physician GroupComment on above: Performed By: #### BMP, DIFF CBC ####[facility] [address] [place] [address] USABasophils Auto (Bld) [#/Vol]Ordered By: Mikel Root on 94-44-0368Izbifepmc (Bld) [#/Vol]N/[facility] HospitalBasophils (Bld) [#/Vol]Automated basophil countGerman HospitalBasophils/100 WBC Auto (Bld)Ordered By: Mikel Root on 61-85-8307Fsfvufzpv/100 WBC (Bld)N/[facility] Basophils/100 WBC (Bld)Automated basophil %[facility] Basophils/100 WBC Manual cnt (Bld)Ordered By: Mikel Root on 42-57-1035Gsjfyheez/100 WBC (Bld)Basophils/100 leukocytes in Blood by Manual count0Trinity Health SystemBasophils/100 leukocytes in Blood by Manual countOrdered By: Mikel Root on 32-88-8528Ujbfdmves/100 WBC (Bld)1 %Normal087 Crawford StreetComment on above:Performed By: #### BMP, DIFF CBC ####[facility] [place] [address] USACalcium [Mass/volume] in Serum or PlasmaOrdered By: Mikel Root on 32-83-0832Ossjbgv [Mass/Vol]8.7 mg/dLNormal8.6-10.3FTrinity Health SystemComment on above:Result Comment: PERFORMED BY: [facility] [address] [place] [address] PATHOLOGIST BIOMATHEMATICIAN AIRAM MAST M.D.Performed By: #### BMP, DIFF CBC ####[facility] [address] [place] [address] USACalcium [Mass/Vol]Calcium [Mass/volume] in Serum or Plasma8.6-10.3FTrinity Health SystemCarbon dioxide, total [Moles/volume] in Serum or PlasmaOrdered By: Mikel Roto on 27-54-0434VL7 [Moles/Vol]26.6 mmol/PMdszmp06.0-31.0German HospitalComment on above:Performed By: #### BMP, DIFF CBC ####[address] [address] USACO2 [Moles/Vol]Carbon dioxide, total [Moles/volume] in Serum or Pqsdch50.0-31.0 German HospitalChloride [Moles/volume] in Serum or Plasma Ordered By: Mikel Root on 39-06-2949Qmidnqyh [Moles/Vol]95 mmol/L Pmr52-912SdktienqaGerman HospitalComment on above:Performed By: #### BMP, DIFF CBC ####[address] [address] USAChloride [Moles/Vol]Chloride [Moles/volume] in Serum or ZrfsxrKjq96-154 German HospitalCreatinine [Mass/volume] in Serum or Plasma Ordered By: Mikel Root on 61-66-5885Nknwnosbiq [Mass/Vol]1.06 mg/dL Normal0.70-1.30German HospitalComment on above:Performed By: #### BMP, DIFF CBC ####[address] [place] [address] USACreatinine [Mass/Vol]Creatinine [Mass/volume] in Serum or Plasma 0.70-1.30German HospitalDiff and CBCon 60-57-3649Dojyztetqimn SlightMedical Center Clinic Physician GroupComment on above:Performed By: #### BMP, DIFF CBC ####[address] [address] USAHypochromasiaMarkedMedical Center Clinic Physician GroupComment on above: Performed By: #### BMP, DIFF CBC ####[address] [address] USAMean Corpuscular HGB Conc32.2 g/dLLow32.5-35.6The [facility] Physician GroupComment on above:Performed By: #### BMP, DIFF CBC ####[address] [address] [place] MicrocytosisSNovant Health Charlotte Orthopaedic Hospital Physician GroupComment on above:Performed By: #### BMP, DIFF CBC ####[address] [address] USAPlatelet EstimateNormalNormTGH Brooksville Physician GroupComment on above:Performed By: #### BMP, DIFF CBC ####[address] [address] USAPlatelet Morphology NormalNoWest Boca Medical Center Physician GroupComment on above:Result Comment: PERFORMED BY: [facility] [address] [place] [address] PATHOLOGIST BIOMATHEMATICIAN AIRAM MAST M.D.Performed By: #### BMP, DIFF CBC ####[address] [address] USAPoikilocytosisModerateMedical Center Clinic Physician GroupComment on above:Performed By: #### BMP, DIFF CBC ####[address] [address] [place] PolychromasiaSNovant Health Charlotte Orthopaedic Hospital Physician GroupComment on above:Performed By: #### BMP, DIFF CBC ####[facility] [address] [place] [address] USASchistocytesUNC Health Blue Ridge Physician GroupComment on above:Performed By: #### BMP, DIFF CBC ####[facility] [address] [place] [address] USATarget CellsUNC Health Blue Ridge Physician GroupComment on above:Performed By: #### BMP, DIFF CBC ####[facility] [address] [place] [address] USAECG 12 lead ECGon 21-83-4690BIT 12 lead ECGST. [facility]AB[facility] [place] [address] [place] [address] Electrocardiograph Report Signed Patient: Manolo Roche MR#: [id number] : 1935 Acct:[id number] Age/Sex: 89 / M ADM Date: 05/16/24 Loc: Room: Type: [facility] Attending Dr: Abdulaziz Root MD Ordering [...] changes have occurred Confirmed by CONRAD OGLESBY [facility] [place] ([id number]) on 05/16/2024 2:20:20 PM Referred By: Electronically Signed By: HARSH MARTINES MD FAC Transcribed By: MUS Signed By Harsh Martines MD, FACC 05/16/24 1420Medical Center Clinic Physician GroupEosinophils Auto (Bld) [#/Vol] Ordered By: Mikel Root on 40-52-2383Aejfddcekpz (Bld) [#/Vol]N/A German HospitalEosinophils (Bld) [#/Vol]Automated eosinophil countGerman HospitalEosinophils/100 WBC Auto (Bld)Ordered By: Mikel Root on 72-63-1939Qphanymdvgw/100 WBC (Bld)N/AFTrinity Health SystemEosinophils/100 WBC (Bld)Automated eosinophil %German HospitalEosinophils/100 WBC Manual cnt (Bld)Ordered By: Mikel Root on 98-52-3770Mkalytdjtnl/100 WBC (Bld)Eosinophils/100 leukocytes in Blood by Manual count1-[facility] Eosinophils/100 leukocytes in Blood by Manual countOrdered By: Mikel Root on 51-68-7450Mwyeapszwof/100 WBC (Bld)2 %Normal1-Trinity Health SystemComment on above:Performed By: #### BMP, DIFF CBC ####[facility] [address] [place] [id number] USAErythrocyte distribution width Auto (RBC) [Ratio]Ordered By: Mikel Root on 17-96-9516Goqzlznwlwe distribution width (RBC) [Ratio]Erythrocyte distribution width [Ratio] by Automated opowxZmye62.0-14.8[facility] Erythrocyte distribution width [Ratio] by Automated countOrdered By: Mikel Root on 96-14-6196Amujzzakigd distribution width (RBC) [Ratio]21.2 %High12.0-14.8German HospitalComment on above:Performed By: #### BMP, DIFF CBC ####[facility] [id number] [place], [place] [id number] USAErythrocyte morphology finding [Identifier] in BloodOrdered By: Mikel Root on 39-93-2796EJM morphology finding Nom (Bld)RBC morphology [facility] HospitalErythrocytes [#/volume] in Blood by Automated countOrdered By: Mikel Root on 74-62-0106YDP (Bld) [#/Vol]4.81 10*6/uLNormal3.90-5.60German HospitalComment on above: Performed By: #### BMP, DIFF CBC ####[facility] [address] [place] [address] USAGlucose [Mass/volume] in Serum or PlasmaOrdered By: Mikel Root on 35-90-1689Nnwjcss [Mass/Vol]649 mg/dLOff scale high 70-100German HospitalComment on above:Critical Result Called to and [...] reference rangePerformed By: #### BMP, DIFF CBC ####[facility] [address] [place] [address] USAGlucose [Mass/Vol] Glucose [Mass/volume] in Serum or PlasmaCritically ward61-063YyemgdmqoGerman HospitalComment on above:Critical Result Called to and read back by: DREW BUITRAGO at: 05/16/2024 13:51 by:TANIAADA recommended reference rangeRandom Glucose Reference Range is dependent on time and content of last meal. Glucose of more than 200 mg/dL in a nonstressed, ambulatory subject supports the diagnosis of Diabetes Mellitus.Hematocrit Auto (Bld) [Volume fraction]Ordered By: Mikel Root on 36-58-4985Mcbsvvpoek (Bld) [Volume fraction]Hematocrit [Volume Fraction] of Blood by Automated wxrhiNvu01.8-50.0German HospitalHematocrit [Volume Fraction] of Blood by Automated countOrdered By: Mikel Root on 70-32-6441Ztxkcnoceg (Bld) [Volume fraction]38.1 %Low38.8-50.0German HospitalComment on above:Performed By: #### BMP, DIFF CBC ####[facility] [address] [place] [address] USAHemoglobin [Mass/volume] in BloodOrdered By: Mikel Root on 89-87-1310Bvrlkhhboj (Bld) [Mass/Vol]12.3 g/dLLow13.0-17.0German HospitalComment on above:Performed By: #### BMP, DIFF CBC ####[facility] [address] [place] [address] USAHemoglobin (Bld) [Mass/Vol]Hemoglobin [Mass/volume] in TkmtxCuq05.0-17.0German HospitalHypochromia LM Ql (Bld)Ordered By: Mikel Root on 52-72-6094Wuwmockvssg Ql (Bld)MarkedGerman HospitalHypochromia Ql (Bld)Hypochromia [Presence] in Blood by Light microscopyGerman HospitalLeukocytes [#/volume] corrected for nucleated erythrocytes in Blood by Automated counOrdered By: Mikel Root on 36-85-7170HEE corrected for nucl RBC Auto (Bld) [#/Vol]5.0 10*3/uL4.1-10.5FTrinity Health SystemWBC corrected for nucl RBC Auto (Bld) [#/Vol]Leukocytes [#/volume] corrected for nucleated erythrocytes in Blood by Automated coun4.1-10.5 German HospitalLeukocytes [#/volume] in Blood by Automated countOrdered By: Mikel Root on 79-97-4085LMW (Bld) [#/Vol]5.0 10*3/uLNormal4.1-10.5FTrinity Health SystemComment on above:Performed By: #### BMP, DIFF CBC ####[facility] [address] [place] [address] USALymphocytes Auto (Bld) [#/Vol]Ordered By: Mikel Root on 00-85-2302Uuseqmgqcus (Bld) [#/Vol]N/AFTrinity Health SystemLymphocytes (Bld) [#/Vol]Lymphocytes [#/volume] in Blood by Automated countGerman HospitalLymphocytes/100 WBC Auto (Bld) Ordered By: Mikel Root on 32-94-4586Kaauocxkrih/100 WBC (Bld)N/A German HospitalLymphocytes/100 WBC (Bld)Lymphocytes/100 leukocytes in Blood by Automated countGerman Hospital Lymphocytes/100 WBC Manual cnt (Bld)Ordered By: Mikel Root on 48-93-1265Olixbmrchng/100 WBC (Bld)Lymphocytes/100 leukocytes in Blood by Manual spuzz76-26QdslusyphGerman HospitalLymphocytes/100 leukocytes in Blood by Manual countOrdered By: Mikel Root on 12-53-9070Rqgnygbbqrk/100 WBC (Bld)23 %Hvmisg06-69RktvuigebGerman HospitalComment on above: Performed By: #### BMP, DIFF CBC ####[facility] [address] [place] [address] [facility] Auto (RBC) [Entitic mass]Ordered By: Mikel Root on 67-47-4874CSR (RBC) [Entitic mass]MCH [Entitic mass] by Automated qpqucEra10.5-35.2FMercy Health – The [facility] [Entitic mass] by Automated countOrdered By: Mikel Root on 32-89-2145UVZ (RBC) [Entitic mass]25.5 pgLow27.5-35.2FTrinity Health SystemComment on above:Performed By: #### BMP, DIFF CBC ####[facility] [address] [place] [id number] [facility] Auto (RBC) [Mass/Vol]Ordered By: Mikel Root on 43-67-4494KESJ (RBC) [Mass/Vol]32.2 g/dLLow32.5-35.6 [facility] HospitalHC (RBC) [Mass/Vol]MCHC [Mass/volume] by Automated pxutcNwj72.5-35.6FOur Lady of Mercy HospitalV Auto (RBC) [Entitic vol]Ordered By: Mikel Root on 66-56-5317QMV (RBC) [Entitic vol]MCV [Entitic volume] by Automated zvomeGlz87.5-101[facility] Doctors HospitalV [Entitic volume] by Automated countOrdered By: Mikel Root on 00-30-6298NBW (RBC) [Entitic vol]79.2 fLLow83.5-101German HospitalComment on above:Performed By: #### BMP, DIFF CBC ####[place] [address] USAManual blood segmented neutrophils/100 leukocytesOrdered By: Mikel Root on 68-18-1530Tffpwqaat neutrophils/100 WBC (Bld)67 %Ttittu20-60RuvsxshlwGerman HospitalComment on above:Performed By: #### BMP, DIFF CBC ####[place] [address] USAMicrocytes LM Ql (Bld)Ordered By: Mikel Root on 05-06-6175Ccggskvweb Ql (Bld)Slight German HospitalMicrocytes Ql (Bld)Microcytes [Presence] in Blood by Light microscopyGerman HospitalMonocytes Auto (Bld) [#/Vol]Ordered By: Mikel Root on 87-99-2585Vyfuuxsnm (Bld) [#/Vol] N/AFTrinity Health SystemMonocytes (Bld) [#/Vol]Automated blood monocyte countGerman HospitalMonocytes/100 WBC Auto (Bld) Ordered By: Mikel Root on 95-81-7786Vynukxkqc/100 WBC (Bld)N/A [facility] HospitalMonocytes/100 WBC (Bld)Automated monocyte % German HospitalMonocytes/100 WBC Manual cnt (Bld)Ordered By: Mikel Root on 32-10-7015Bvirnwhkr/100 WBC (Bld)Monocytes/100 leukocytes in Blood by Manual count2-[facility] Monocytes/100 leukocytes in Blood by Manual countOrdered By: Mikel Root on 37-82-5345Xloydhadw/100 WBC (Bld)8 %Normal2-German HospitalComment on above:Performed By: #### BMP, DIFF CBC ####[facility] [place] [address] USANeutrophils Auto (Bld) [#/Vol]Ordered By: Mikel Root on 04-21-9320Snfnjscmipp (Bld) [#/Vol]N/[facility] HospitalNeutrophils (Bld) [#/Vol]Neutrophils [#/volume] in Blood by Automated countGerman Hospital Neutrophils/100 WBC Auto (Bld)Ordered By: Mikel Root on 05-16-2024 Neutrophils/100 WBC (Bld)N/[facility] HospitalNeutrophils/100 WBC (Bld)Automated neutrophil %German HospitalNo Panel InformationOrdered By: Mikel Root on 88-89-9299Ktmtdlqox GFR (CKD-EPI)> 60.0 mL/MinGerman HospitalPharmacy Creatinine Clearance (ChemN/[facility] HospitalNucleated erythrocytes [Presence] in Blood by Automated countOrdered By: Mikel Root on 77-15-3447Cjcrepkem RBC Auto Ql (Bld)N/[facility] Nucleated RBC Auto Ql (Bld)Nucleated erythrocytes [Presence] in Blood by Automated countGerman HospitalPlatelet adequacy [Presence] in Blood by Light microscopyOrdered By: Mikel Root on 05-16-2024 Platelets LM Ql (Bld)NormalNoKettering Health DaytonPlatelets LM Ql (Bld)Platelet adequacy [Presence] in Blood by Light microscopyNoKettering Health DaytonPlatelet mean volume Auto (Bld) [Entitic vol]Ordered By: Mikel Root on 12-54-2095Tvqztwhg mean volume (Bld) [Entitic vol] Platelet mean volume [Entitic volume] in Blood by Automated countHigh6.6-10.1 German HospitalPlatelet mean volume [Entitic volume] in Blood by Automated countOrdered By: Mikel Root on 83-47-4960Gyodbfpy mean volume (Bld) [Entitic vol]11.3 fLHigh6.6-10.1FTrinity Health System Comment on above:Result Comment: PERFORMED BY: [facility] [address] [facility] [place] [id number] PATHOLOGIST BIOMATHEMATICIAN AIRAM MAST M.D.Performed By: #### BMP, DIFF CBC ####[facility] [place] [id number] USAPlatelet morphology finding [Identifier] in BloodOrdered By: Mikel Root on 48-37-2063Cfguxcoa morphology finding Nom (Bld)NormalUniversity Hospitals [facility] Platelet morphology finding Nom (Bld)Platelet morphology finding [Identifier] in BloodNoKettering Health DaytonPlatelets Auto (Bld) [#/Vol]Ordered By: Mikel Root on 39-45-5731Znfoqptvs (Bld) [#/Vol]Platelets [#/volume] in Blood by Automated kemdv087-899[address] Platelets [#/volume] in Blood by Automated countOrdered By: Mikel Root on 54-04-4000Dinarjisw (Bld) [#/Vol]249 10*3/cVTxdcvy406-037BwallodyhGerman HospitalComment on above:Performed By: #### BMP, DIFF CBC ####[facility] [address] [place] [id number] [facility] Poikilocytosis [Presence] in Blood by Light microscopyOrdered By: Mikel Root on 49-34-3164Fzzreunsqofpvg LM Ql (Bld)ModerateGerman HospitalPoikilocytosis LM Ql (Bld)Poikilocytosis [Presence] in Blood by Light microscopyGerman HospitalPolychromasia [Presence] in Blood by Light microscopyOrdered By: Mikel Root on 05-16-2024 Polychromasia LM Ql (Bld)SlightGerman HospitalPolychromasia LM Ql (Bld)Polychromasia [Presence] in Blood by Light microscopyGerman HospitalPotassium [Moles/volume] in Serum or PlasmaOrdered By: Mikel Root on 39-18-7232Vrqywxsir [Moles/Vol]5.4 mmol/LHigh3.5-5.1 [facility] HospitalComment on above:Performed By: #### BMP, DIFF CBC ####[facility] Potassium [Moles/Vol]Potassium [Moles/volume] in Serum or PlasmaHigh3.5-5.1 German HospitalRBC Auto (Bld) [#/Vol]Ordered By: Mikel Root on 84-21-4951KDB (Bld) [#/Vol]Erythrocytes [#/volume] in Blood by Automated count3.90-5.60German HospitalRBC morphologyOrdered By: Mikel Root on 01-41-7414VJI morphology finding Nom (Bld)N/A [facility] Centerchistocytes [Presence] in Blood by Light microscopyOrdered By: Mikel Root on 47-52-5645Qctxjxiziljd LM Ql (Bld)German Hospitalchistocytes LM Ql (Bld)Schistocytes [Presence] in Blood by Light microscopyGerman Hospital Segmented neutrophils/100 WBC Manual cnt (Bld)Ordered By: Mikel Root on 97-29-8409Teawqlisv neutrophils/100 WBC (Bld)Manual blood segmented neutrophils/100 dibpgqmrht47-61SqgzhtqdiUC Medical Centererum or plasma anion gap determinationOrdered By: Mikel Root on 94-80-1564Uizti gap [Moles/Vol]11.8 mmol/LNormal6.0-15.0German HospitalComment on above:Performed By: #### BMP, DIFF CBC ####[facility] [address] [place] [address] USAAnion gap [Moles/Vol] Serum or plasma anion gap determination6.0-15.0[facility] Sodium [Moles/volume] in Serum or PlasmaOrdered By: Mikel Root on 17-57-4505Tljdcx [Moles/Vol]128 mmol/FSwa146-566XgnixltxzGerman HospitalComment on above:Performed By: #### BMP, DIFF CBC ####[address] [address] USASodium [Moles/Vol]Sodium [Moles/volume] in Serum or ZrsjurJag923-441HqikkbposGerman Hospital Target cellsOrdered By: Mikel Root on 26-12-8847Wbrbvx cells LM Ql (Bld)SlightGerman HospitalTarget cells [Presence] in Blood by Light microscopyOrdered By: Mikel Root on 79-23-9620Gftfao cells LM Ql (Bld)Target cellsGerman HospitalUrea nitrogen [Mass/volume] in Serum or PlasmaOrdered By: Mikel Root on 58-56-8639Wzls nitrogen [Mass/Vol]21 mg/dLNormal7-25German HospitalComment on above:Performed By: #### BMP, DIFF CBC ####[facility] [address] [place] [address] [facility] RANCHOUrea nitrogen [Mass/Vol]Urea nitrogen [Mass/volume] in Serum or Plasma02-02[facility] WBC Auto (Bld) [#/Vol]Ordered By: Mikel Root on 10-60-1710ATC (Bld) [#/Vol]Leukocytes [#/volume] in Blood by Automated count4.1-10.5FTrinity Health System36on 92-66-069014NtrifDr. Chirag Merritt's recommendation for an EGD was [...] initially recommended. Best regards, Dr. Taylor of [facility]36on 36-85-356213Pklqsm from Dr. Marie Tejeda's office (Internal Medicine) called to make sure that a message had been received to Dr. Beard regarding this patient and concerns Dr. Tejeda has regarding the patient having an EGD to confirm resolution of H. Pylori. This senior writer could not find any message in chart or in vp emerging media, so this message was created. The [...] A note will be sent to the pharmacy messenger to discuss the possibility of using a stool study instead of a biopsy to avoid disturbing the scarred area. Please advise and respond to Dr. Tejeda through this telephone call note or via a letter, as to what Dr. Beard's recommendation is regarding the above inquiry. Thank you.[facility] HospitalTelephoneon [id number] Manolo Roche 1935 M Date Provider Department Center 04/26/2024 88214-WNMEMZTIM CAMPBELL MP [facility] No family history on fileNormalUniversity of Carrollton Regional Medical CenterHbA1c (Bld) [Mass fraction]on 88-32-7273EAEP HealthcareLaboratory - Hematology and Cell countson 72-30-9022RnM4e (Bld) [Mass fraction]9.8 %NOMS HealthcareOffice Visiton 55-33-3400Wbuzmy-up [id number] Manolo Roche 1935 M Date Provider Department Center 04/05/2024 Nadeen-PATRICK BEARD [facility] No family history on file Level of Service:68860 PA OFFICE/OUTPATIENT NEW LOW MDM 30 MINUTES (GC) Reason for Visit and Comments: gastrointestinal ulcer [Other] - Pt says he's supposed to receive a procedure.[facility] HospitalECH echo transthoracicon 66-30-4839OED echo transthoracicST. [place] [address] Echocardiogram Signed Patient: Manolo Roche MR#: [id number] : 1935 Acct:[id number] Age/Sex: 88 / M ADM Date: 03/09/24 Loc: Room: Type: [facility] Attending Dr: Anat Perez MD Ordering Provider: Anat Perez MD Date of Service: 03/09/24 ECH/ECH echo transthoracic: I25.10 - Atherosclerotic heart disease of [place] coronary... Copies to: Anat Perez MD Manolo Westfall Patient Location: : 1935 Gender: Male (MM/DD/YYYY) Age: 88 Years Ordering Physician: Anat Perez Height: 70 in Weight: 140.875 lb Performed By: MARK Hearn BSA: 1.80 m2 BP: 144 / 83 mmHg HR: 53 bpm Reason For Study: I25.10 - Atherosclerotic heart disease of [place] coronary... History: HTN, DM, Former Smoker, CAD, [...] 03/09/244 Signed By: Anat Perez MD 03/09/24 [facility] Erythrocyte distribution width Auto (RBC) [Ratio]Ordered By: Warren Gross on 53-38-6364Szxamjqtkgx distribution width (RBC) [Ratio]20.0 %High12.0-14.8 German HospitalFerritin [Mass/volume] in Serum or Plasma Ordered By: Anat Perez on 14-98-1383Sopvnhxz [Mass/Vol]19.8 ng/mLLow 23.9-336.2FTrinity Health SystemHematocrit Auto (Bld) [Volume fraction]Ordered By: Warren Gross on 27-46-3893Ghtzbzsxez (Bld) [Volume fraction]26.7 %Low38.8-50.0German HospitalHemoglobin [Mass/volume] in BloodOrdered By: Warren Gross on 92-36-3672Btjatvvedu (Bld) [Mass/Vol]8.8 g/dLLow13.0-17.0German HospitalIron [Mass/volume] in Serum or PlasmaOrdered By: Anat Perez on 64-37-4856Iuwo [Mass/Vol]20 ug/pVJys74-259ZgeyhyenjGerman HospitalIron binding capacity [Mass/volume] in Serum or PlasmaOrdered By: Anat Perez on 02-16-2024 Iron binding capacity [Mass/Vol]402 ug/mH267-651AqalntalzGerman HospitalIron saturation [Mass Fraction] in Serum or PlasmaOrdered By: Anat Perez on 74-89-6663Dddx saturation [Mass fraction]5.0 %Cqe86-72XmmfyxrbaGerman HospitalLeukocytes [#/volume] corrected for nucleated erythrocytes in Blood by Automated counOrdered By: Warren Gross on 55-45-3270MOW corrected for nucl RBC Auto (Bld) [#/Vol]5.8 10*3/uL4.1-10.5FMercy Health – The Jewish Hospital Auto (RBC) [Entitic mass]Ordered By: Warren Gross on 95-42-6406APH (RBC) [Entitic mass]26.8 pgLow27.5-35.2FOur Lady of Mercy HospitalHC Auto (RBC) [Mass/Vol]Ordered By: Warren Gross on 04-03-4969DQAB (RBC) [Mass/Vol]32.9 g/dL32.5-35.6FOur Lady of Mercy HospitalV Auto (RBC) [Entitic vol]Ordered By: Warren Gross on 91-98-5591ZCM (RBC) [Entitic vol]81.4 fLLow83.5-101German HospitalPlatelet mean volume Auto (Bld) [Entitic vol]Ordered By: Warren Gross on 23-87-9082Msjnwqlx mean volume (Bld) [Entitic vol]10.3 fLHigh6.6-10.1FTrinity Health SystemPlatelets Auto (Bld) [#/Vol]Ordered By: Warren Gross on 47-49-9190Aghpfrgps (Bld) [#/Vol]304 10*3/qZ198-653EctkyxncoGerman HospitalRBC Auto (Bld) [#/Vol]Ordered By: Warren Gross on 22-15-5969ZQQ (Bld) [#/Vol]3.28 10*6/uLLow3.90-5.60German HospitalTransferrin [Mass/volume] in Serum or PlasmaOrdered By: Anat Perez on 33-21-9535Nckqlcvyrud [Mass/Vol]287 mg/tW350-645MqfahrsseGerman HospitalErythrocyte distribution width Auto (RBC) [Ratio]Ordered By: Warren Gross on 79-21-4039Kftropqppzy distribution width (RBC) [Ratio]19.9 % High12.0-14.8German HospitalHematocrit Auto (Bld) [Volume fraction]Ordered By: Warren Gross on 31-79-6897Iaasgloslr (Bld) [Volume fraction]26.4 %Low38.8-50.0German HospitalHemoglobin [Mass/volume] in BloodOrdered By: Warren Gross on 61-83-3277Pulswszkex (Bld) [Mass/Vol]8.7 g/dLLow13.0-17.0German HospitalLeukocytes [#/volume] corrected for nucleated erythrocytes in Blood by Automated coun Ordered By: Warren Gross on 04-29-1154OSS corrected for nucl RBC Auto (Bld) [#/Vol]7.1 10*3/uL4.1-10.5FMercy Health – The Jewish Hospital Auto (RBC) [Entitic mass]Ordered By: Warren Gross on 37-90-6311VPZ (RBC) [Entitic mass]26.8 pgLow27.5-35.2FLakeHealth TriPoint [facility] Center Auto (RBC) [Mass/Vol]Ordered By: Warren Gross on 62-72-9843FBHT (RBC) [Mass/Vol]32.9 g/dL32.5-35.6FTrinity Health SystemMCV Auto (RBC) [Entitic vol]Ordered By: Warren Gross on 68-33-9558CPW (RBC) [Entitic vol]81.6 fLLow83.5-101German HospitalPlatelet mean volume Auto (Bld) [Entitic vol]Ordered By: Warren Gross on 43-46-6523Qpdqehgd mean volume (Bld) [Entitic vol]9.6 fL6.6-10.1FTrinity Health SystemPlatelets Auto (Bld) [#/Vol]Ordered By: Warren Gross on 29-91-2907Zmujuznxn (Bld) [#/Vol]278 10*3/rG829-320DdzdttsjpGerman HospitalRBC Auto (Bld) [#/Vol]Ordered By: Warren Gross on 86-63-4521DGT (Bld) [#/Vol]3.23 10*6/uLLow3.90-5.60German HospitalErythrocyte distribution width Auto (RBC) [Ratio]Ordered By: Warren Gross on 02-11-2024 Erythrocyte distribution width (RBC) [Ratio]20.4 %High12.0-14.8German HospitalHematocrit Auto (Bld) [Volume fraction]Ordered By: Warren Gross on 14-97-0643Jkltekaatl (Bld) [Volume fraction]26.8 %Low38.8-50.0 [facility] HospitalHemoglobin [Mass/volume] in BloodOrdered By: Warren Gross on 85-99-9155Rqjfvvmpfa (Bld) [Mass/Vol]8.8 g/dLLow13.0-17.0 German HospitalLeukocytes [#/volume] corrected for nucleated erythrocytes in Blood by Automated counOrdered By: Warren Gross on 50-08-2518JMI corrected for nucl RBC Auto (Bld) [#/Vol]6.4 10*3/uL4.1-10.5FTrinity Health SystemMCH Auto (RBC) [Entitic mass]Ordered By: Warren Gross on 60-74-4063YZX (RBC) [Entitic mass]26.8 pgLow27.5-35.2FTrinity Health SystemMC Auto (RBC) [Mass/Vol]Ordered By: Warren Gross on 87-61-2517BGKA (RBC) [Mass/Vol]32.8 g/dL32.5-35.6FTrinity Health SystemMCV Auto (RBC) [Entitic vol]Ordered By: Warren Gross on 58-29-5456DDL (RBC) [Entitic vol]81.9 fLLow83.5-101German HospitalPlatelet mean volume Auto (Bld) [Entitic vol]Ordered By: Warren Gross on 07-63-9263Tmigxngk mean volume (Bld) [Entitic vol]10.2 fLHigh6.6-10.1FTrinity Health SystemPlatelets Auto (Bld) [#/Vol]Ordered By: Warren Gross on 72-28-2669Cqskrknqo (Bld) [#/Vol]228 10*3/hO957-739YqlpyvoetGerman HospitalRBC Auto (Bld) [#/Vol]Ordered By: Warren Gross on 59-79-6677CVU (Bld) [#/Vol]3.27 10*6/uLLow3.90-5.60German HospitalBasophils Auto (Bld) [#/Vol]Ordered By: Sushant Cordon on 12-10-8613Xrkdcslfr (Bld) [#/Vol]0.1 10*3/uL0.0-0.2FTrinity Health SystemBasophils/100 WBC Auto (Bld)Ordered By: Sushant Cordon on 40-79-3325Xyyntmget/100 WBC (Bld)1.3 %.German HospitalCalcium [Mass/volume] in Serum or PlasmaOrdered By: Sushant Cordon on 37-36-1176Ovprlnv [Mass/Vol]8.1 mg/dLLow8.6-10.3FTrinity Health SystemCarbon dioxide, total [Moles/volume] in Serum or PlasmaOrdered By: uSshant Cordon on 83-91-6811NF7 [Moles/Vol]29.6 mmol/L21.0-31.0German HospitalChloride [Moles/volume] in Serum or PlasmaOrdered By: Sushant Cordon on 56-53-2167Fdkhxhxq [Moles/Vol]102 mmol/M97-308GekldunxcGerman HospitalCreatinine [Mass/volume] in Serum or PlasmaOrdered By: Sushant Cordon on 05-03-8464Offifjltdj [Mass/Vol]0.82 mg/dL0.70-1.30 German HospitalEosinophils Auto (Bld) [#/Vol]Ordered By: Sushant Cordon on 95-58-0952Vjpsstgeomn (Bld) [#/Vol]0.4 10*3/uL0.0-0.45 German HospitalEosinophils/100 WBC Auto (Bld)Ordered By: Sushant Cordon on 37-82-3741Wnbrniarhlx/100 WBC (Bld)7.1 %.German HospitalErythrocyte distribution width Auto (RBC) [Ratio]Ordered By: Sushant Cordon on 89-03-4394Knjjhgctiay distribution width (RBC) [Ratio]19.3 %High12.0-14.8German HospitalGlucose Glucometer (BldC) [Mass/Vol]Ordered By: Warren Gross on 77-50-9539Diirogw [Mass/Vol]382 mg/dLGerman HospitalComment on above:Random Glucose Reference Range is dependent on time and content of last meal. Glucose of more than 200 mg/dL in a nonstressed, ambulatory subject supports the diagnosis of Diabetes Mellitus.Glucose [Mass/volume] in Serum or PlasmaOrdered By: Sushant Cordon on 59-09-8191Rryiqbl [Mass/Vol]320 mg/dZLnif56-773MdrxupnbuGerman HospitalComment on above:Delta: 171 on 02/07/24-620ADA recommended reference rangeRandom Glucose Reference Range is dependent on time and content of last meal. Glucose of more than 200 mg/dL in a nonstressed, ambulatory subj ect supports the diagnosis of Diabetes Mellitus.Hematocrit Auto (Bld) [Volume fraction]Ordered By: Sushant Cordon on 82-22-8946Ccqylydycs (Bld) [Volume fraction]25.8 %Low38.8-50.0German HospitalHemoglobin [Mass/volume] in BloodOrdered By: Sushant Cordon on 07-85-1422Xmasccmstu (Bld) [Mass/Vol]8.8 g/dLLow13.0-17.0German HospitalLeukocytes [#/volume] corrected for nucleated erythrocytes in Blood by Automated coun Ordered By: Sushant Cordon on 10-85-3964SYR corrected for nucl RBC Auto (Bld) [#/Vol]5.7 10*3/uL4.1-10.5FTrinity Health SystemLymphocytes Auto (Bld) [#/Vol]Ordered By: Sushant Cordon on 03-55-4560Bdnuvuzxisy (Bld) [#/Vol]1.3 10*3/uL1.00-4.8German HospitalLymphocytes/100 WBC Auto (Bld)Ordered By: Sushant Cordon on 27-27-8306Kchpgwkscvv/100 WBC (Bld)22.3 %.[facility] Auto (RBC) [Entitic mass] Ordered By: Sushant Cordon on 52-97-1021YPA (RBC) [Entitic mass]27.1 pgLow 27.5-35.2FTrinity Health SystemMCHC Auto (RBC) [Mass/Vol]Ordered By: Sushant Cordon on 38-26-3041FWXH (RBC) [Mass/Vol]33.9 g/dL32.5-35.6 German HospitalMCV Auto (RBC) [Entitic vol]Ordered By: Sushant Cordon on 34-44-5583GNZ (RBC) [Entitic vol]79.9 fLLow83.5-101 German HospitalMagnesium [Mass/volume] in Serum or Plasma Ordered By: Sushant Cordon on 72-73-3182Cppktyzgo [Mass/Vol]1.8 mg/dLLow 1.9-2.7FTrinity Health SystemMonocytes Auto (Bld) [#/Vol]Ordered By: Sushant Cordon on 75-64-0669Dunnbfkfm (Bld) [#/Vol]1.0 10*3/uLHigh0.0-0.8 German HospitalMonocytes/100 WBC Auto (Bld)Ordered By: Sushant Cordon on 50-76-7727Dlrfubxde/100 WBC (Bld)17.6 %.German HospitalNeutrophils Auto (Bld) [#/Vol]Ordered By: Sushant Cordon on 33-76-4380Btpamafcwdd (Bld) [#/Vol]3.0 10*3/uL1.8-7.7FTrinity Health SystemNeutrophils/100 WBC Auto (Bld)Ordered By: Sushant Cordon on 80-21-4244Ofyawqtsqse/100 WBC (Bld)51.7 %.German HospitalNo Panel InformationOrdered By: Sushant Cordon on 02-08-2024 Estimated GFR (CKD-EPI)> 60.0 mL/MinGerman HospitalPharmacy Creatinine Clearance (Chem58.45German HospitalNucleated erythrocytes [Presence] in Blood by Automated countOrdered By: Sushant Cordon on 87-97-0646Qqjiplvax RBC Auto Ql (Bld)0.2 /100{WBC}0-0.5FTrinity Health SystemPlatelet mean volume Auto (Bld) [Entitic vol]Ordered By: Sushant Cordon on 15-90-2425Vblaqtga mean volume (Bld) [Entitic vol]11.2 fLHigh6.6-10.1FTrinity Health SystemPlatelets Auto (Bld) [#/Vol] Ordered By: Sushant Cordon on 69-40-6428Soayxnpnb (Bld) [#/Vol]180 10*3/uL 150-450German HospitalPotassium [Moles/volume] in Serum or PlasmaOrdered By: Sushant Cordon on 93-55-3264Ujmjjojzd [Moles/Vol]4.4 mmol/L3.5-5.1FTrinity Health SystemRBC Auto (Bld) [#/Vol]Ordered By: Sushant Cordon on 28-28-9325BPP (Bld) [#/Vol]3.23 10*6/uLLow3.90-5.60 [facility] Centererum or plasma anion gap determinationOrdered By: Sushant Cordon on 14-47-5760Csbsh gap [Moles/Vol]7.8 mmol/L6.0-15.0 [facility] Centerodium [Moles/volume] in Serum or PlasmaOrdered By: Sushant Cordon on 02-91-1322Ucguki [Moles/Vol]135 mmol/VSwv666-580 [facility] HospitalUrea nitrogen [Mass/volume] in Serum or Plasma Ordered By: Sushant Cordon on 89-20-4981Vfje nitrogen [Mass/Vol]24 mg/dL -German HospitalWBC Auto (Bld) [#/Vol]Ordered By: Sushant Cordon on 40-27-0995RSG (Bld) [#/Vol]5.7 10*3/uL4.1-10.5FTrinity Health SystemNo Panel InformationOrdered By: Warren Gross on 58-10-1656Ycfgfxk Glucose #[address] CenterBedside Glucose CommentSee commentGerman HospitalComment on above:Glu2: Will Repeat TestAlanine aminotransferase [Enzymatic activity/volume] in Serum or PlasmaOrdered By: Sushant Cordon on 88-59-7257CTL [Catalytic activity/Vol]12 U/L7-52German HospitalAlbumin [Mass/volume] in Serum or Plasma by Bromocresol green (BCG) dye binding methoOrdered By: Sushant Cordon on 60-92-6355Wxbqcmf BCG dye [Mass/Vol]3.2 g/dLLow3.5-5.7FTrinity Health SystemAlkaline phosphatase [Enzymatic activity/volume] in Serum or PlasmaOrdered By: Sushant Cordon on 54-94-8389OMN [Catalytic activity/Vol]94 U/Z49-294GtawwhqkeGerman HospitalAspartate aminotransferase [Enzymatic activity/volume] in Serum or PlasmaOrdered By: Sushant Cordon on 55-09-2259OQS [Catalytic activity/Vol]15 U/K73-37CdurfszfmGerman HospitalBilirubin.direct [Mass/volume] in Serum or PlasmaOrdered By: Sushant Cordon on 02-06-2024 Bilirubin.direct [Mass/Vol]0.20 mg/dLHigh0.03-0.18FTrinity Health SystemBilirubin.total [Mass/volume] in Serum or PlasmaOrdered By: Sushant Cordon on 94-10-0208Msxoqzcql [Mass/Vol]1.2 mg/dLHigh0.3-1.0German HospitalGlobulin Calc (S) [Mass/Vol]Ordered By: Sushant Cordon on 37-54-8978Xnaboolb (S) [Mass/Vol]2.0 g/dLGerman HospitalGlucose mean value [Mass/volume] in Blood Estimated from glycated hemoglobinOrdered By: Sushant Cordon on 70-00-8412Tdocbzg glucose Estimated from glycated hemoglobin (Bld) [Mass/Vol]194 mg/dLGerman HospitalHemoglobin A1c percentageOrdered By: Sushant Cordon on 50-73-2070QcU2u (Bld) [Mass fraction]8.4 %High4.3-5.6FTrinity Health SystemComment on above:Increased risk for diabetes: 5.7 - 6.4diabetes: >6.4glycemic control for adults with diabetes: <7.0No Panel Information Ordered By: Nayeli Jimenez on 37-22-2106Jccgxll Glucose #3 CommentFollow hypoglycemicGerman HospitalProtein [Mass/volume] in Serum or PlasmaOrdered By: Sushant Cordon on 93-50-5851Zdfvlvu [Mass/Vol]5.2 g/dL Low6.4-8.9[facility] Centererum or plasma albumin/globulin mass ratioOrdered By: Sushant Cordon on 76-82-2362Venjunz/Globulin [Mass ratio]1.6 {ratio}[facility] Centererum or plasma non- glucuronidated bilirubin measurement (mass/volume)Ordered By: Sushant Cordon on 89-33-8043Quoisntlx.indirect [Mass/Vol]1.0 mg/dLGerman HospitalTroponin I.cardiac [Mass/volume] in Serum or Plasma by Detection limit <= 0.01 ng/Ordered By: Sushant Cordon on 19-14-0539Inbjdxto I.cardiac DL <= 0.01 ng/mL [Mass/Vol]60.3 pg/mLHigh0.0-20.0German HospitalComment on above:Critical Result : Called to and read back by: PRAKASH YAP at: 02/06/2024 09:42:22 by:CYNTHIAVitamin D+Metabolites [Mass/volume] in Serum or PlasmaOrdered By: Sushant Cordon on 85-74-0449Dioohri D+Metabolites [Mass/Vol]25.0 ng/oFXrc14-949JbylqlvrpGerman Hospital Comment on above:VITAMIN D STATUS 25(OH)VITAMIN D RANGE (ng/mL) Deficient <20 Insufficient 20 to <47Vatvmjuedd11 to 100Reference: Batsheva MF,Arcadio NC, Ramy MCGEE, et al. Evaluation,treatment, and prevention of vitamin D deficiency; an Endocrine Society clinical practice guideline. JCEM. 2010; 96 (7):1911-30.Acanthocytes [Presence] in Blood by Light microscopyOrdered By: Paige Luther on 79-22-2647Nxiwfzlojqmn LM Ql (Bld)German HospitalActivated partial thromboplastin time (aPTT) in platelet poor plasma by coagulation aOrdered By: Paige Luther on 27-46-6381gWML Coag (PPP) [Time]23.6 sLow25.1-36.5FTrinity Health SystemComment on above:A hematocrit value greater than 55% may lead to inaccurate results in coagulation testing. Patientshaving hematocrit values >55% require a special collection tube for coagulation studies. Please contact the laboratory at [phone] for redraw instructions.Alanine aminotransferase [Enzymatic activity/volume] in Serum or PlasmaOrdered By: Paige Luther on 71-18-4719DUK [Catalytic activity/Vol]15 U/L7-52German HospitalAlbumin [Mass/volume] in Serum or Plasma by Bromocresol green (BCG) dye binding methoOrdered By: Paige Luther on 98-37-4240Mkrhrsu BCG dye [Mass/Vol]3.3 g/dLLow3.5-5.7FTrinity Health SystemAlkaline phosphatase [Enzymatic activity/volume] in Serum or PlasmaOrdered By: Paige Luther on 42-67-4070HPP [Catalytic activity/Vol]104 U/X21-457MfspfrxebGerman HospitalAnisocytosis LM Ql (Bld)Ordered By: Paige Luther on 88-60-9686Vwglrhdwtwto Ql (Bld)ModerateGerman HospitalAspartate aminotransferase [Enzymatic activity/volume] in Serum or PlasmaOrdered By: Paige Luther on 50-06-8869HLC [Catalytic activity/Vol]15 U/L 13-39German HospitalBasophils Auto (Bld) [#/Vol]Ordered By: Paige Luther on 21-96-2864Lriwxkoez (Bld) [#/Vol]0.0 10*3/uL0.0-0.2FTrinity Health SystemBasophils/100 WBC Auto (Bld)Ordered By: Paige Luther on 94-24-4598Jnhbgkjim/100 WBC (Bld)0.4 %.[facility] Bilirubin.direct [Mass/volume] in Serum or PlasmaOrdered By: Paige Luther on 28-79-2855Twbikqamp.direct [Mass/Vol]0.10 mg/dL0.03-0.18FTrinity Health SystemBilirubin.total [Mass/volume] in Serum or PlasmaOrdered By: Paige Luther on 28-42-9758Htoizlnvu [Mass/Vol]0.5 mg/dL0.3-1.0German HospitalBurr cells [Presence] in Blood by Light microscopyOrdered By: Paige Luther on 39-41-2070Csil cells LM Ql (Bld)SlightGerman HospitalCalcium [Mass/volume] in Serum or PlasmaOrdered By: Paige Luther on 21-98-8056Zhgrboe [Mass/Vol]8.6 mg/dL8.6-10.3FTrinity Health SystemCarbon dioxide, total [Moles/volume] in Serum or PlasmaOrdered By: Paige Luther on 35-96-4751FZ7 [Moles/Vol]23.1 mmol/L21.0-31.0German HospitalChloride [Moles/volume] in Serum or PlasmaOrdered By: Paige Luther on 79-24-4239Wngqpoba [Moles/Vol]103 mmol/Z68-414UunllfhajGerman HospitalCreatine kinase [Enzymatic activity/volume] in Serum or Plasma Ordered By: Paige Luther on 19-05-2825WS [Catalytic activity/Vol]114 U/L30-223 German HospitalCreatinine [Mass/volume] in Serum or Plasma Ordered By: Paige Luther on 60-65-4367Citfalkkvz [Mass/Vol]1.09 mg/dL0.70-1.30 German HospitalEosinophils Auto (Bld) [#/Vol]Ordered By: Paige Luther on 69-30-9290Cumkgepasxd (Bld) [#/Vol]0.0 10*3/uL0.0-0.45 German HospitalEosinophils/100 WBC Auto (Bld)Ordered By: Paige Luther on 42-97-1528Fmcrqflfxzb/100 WBC (Bld)0.2 %.German HospitalErythrocyte distribution width Auto (RBC) [Ratio]Ordered By: Paige Luther on 12-46-1155Pqxcrrmqgzx distribution width (RBC) [Ratio]20.3 % High12.0-14.8German HospitalGlobulin Calc (S) [Mass/Vol] Ordered By: Paige Luther on 59-82-9693Kpdquxxx (S) [Mass/Vol]2.4 g/dLGerman HospitalGlucose [Mass/volume] in Serum or PlasmaOrdered By: Paige Luther on 40-61-4734Xkozmqn [Mass/Vol]158 mg/bIWfki78-929OzlxmsdefGerman HospitalComment on above:ADA recommended reference rangeRandom Glucose Reference Range is dependent on time and content of last meal. Glucose of more than 200 mg/dL in a nonstressed, ambulatory subject supports the diagnosisof Diabetes Mellitus.Hematocrit Auto (Bld) [Volume fraction]Ordered By: Paige Luther on 57-62-9824Mdmvnbwcjx (Bld) [Volume fraction]23.7 %Low38.8-50.0 German HospitalHemoglobin [Mass/volume] in BloodOrdered By: Paige Luther on 84-96-7096Utyaevschy (Bld) [Mass/Vol]7.7 g/dLLow13.0-17.0 German HospitalHemoglobin.gastrointestinal [Presence] in Stool Ordered By: Paige Luther on 45-87-0173Vnvvofbnvy.gastrointestinal Ql (Stl) German HospitalHypochromia LM Ql (Bld)Ordered By: Paige Luther on 52-81-8413Ghvyhuleygp Ql (Bld)MarkedGerman Hospital INR in Platelet poor plasma by Coagulation assayOrdered By: Paige Luther on 76-29-0356JMH Coag (PPP) [Relative time]1.3 {INR}German HospitalComment on above:INR Therapeutic Range A) Pre- [...] by Automated counOrdered By: Paige Luther on 27-12-0463RJX corrected for nucl RBC Auto (Bld) [#/Vol]9.0 10*3/uL4.1-10.5FTrinity Health SystemLipase [Enzymatic activity/volume] in Serum or PlasmaOrdered By: Paige Luther on 73-58-8178Njpovh [Catalytic activity/Vol]5.0 U/LLow11.0-82.0German HospitalLymphocytes Auto (Bld) [#/Vol]Ordered By: Paige Luther on 27-86-6609Dwuhxrrzidl (Bld) [#/Vol]1.5 10*3/uL1.00-4.8German HospitalLymphocytes/100 WBC Auto (Bld)Ordered By: Paige Luther on 52-41-0680Guywmfggwft/100 WBC (Bld)16.3 %.[facility]H Auto (RBC) [Entitic mass]Ordered By: Paige Luther on 75-36-3358AIC (RBC) [Entitic mass]24.9 pgLow27.5-35.2FOur Lady of Mercy HospitalHC Auto (RBC) [Mass/Vol]Ordered By: Paige Luther on 81-89-3219KRQI (RBC) [Mass/Vol] 32.6 g/dL32.5-35.6FTrinity Health SystemMCV Auto (RBC) [Entitic vol] Ordered By: Paige Luther on 40-33-9247OVP (RBC) [Entitic vol]76.3 fLLow 83.5-101German HospitalMacrocytes LM Ql (Bld)Ordered By: Paige Luther on 51-88-3931Yqrrgypese Ql (Bld)German HospitalMicrocytes LM Ql (Bld)Ordered By: Paige Luther on 15-51-9702Xecywvrkpv Ql (Bld)German HospitalMonocyte distribution width [Entitic volume] in Blood by AutomatedOrdered By: Paige Luther on 02-05-2024 Monocyte distribution width Auto (Bld) [Entitic vol]17.22 %0.00-20.00German HospitalMonocytes Auto (Bld) [#/Vol]Ordered By: Paige Luther on 60-79-3635Ipdngupxf (Bld) [#/Vol]0.4 10*3/uL0.0-0.8German HospitalMonocytes/100 WBC Auto (Bld)Ordered By: Paige Luther on 02-05-2024 Monocytes/100 WBC (Bld)4.8 %.German HospitalNatriuretic peptide B [Mass/Vol]Ordered By: Paige Luther on 89-39-9403Fpzejpigheg peptide B (Bld) [Mass/Vol]399.0 pg/mLHigh5-100[facility] Neutrophils Auto (Bld) [#/Vol]Ordered By: Paige Luther on 02-05-2024 Neutrophils (Bld) [#/Vol]7.0 10*3/uL1.8-7.7FTrinity Health System Neutrophils/100 WBC Auto (Bld)Ordered By: Paige Luther on 02-05-2024 Neutrophils/100 WBC (Bld)78.3 %.German HospitalNo Panel InformationOrdered By: Paige Luther on 90-47-3747Rdsrfallf GFR (CKD-EPI)> 60.0 mL/MinGerman HospitalPharmacy Creatinine Clearance (Chem45.07 [facility] Centerlides for Pathologist ReviewOrdered path reviewGerman HospitalNucleated erythrocytes [Presence] in Blood by Automated countOrdered By: Paige Luther on 29-97-6862Jqbnvzber RBC Auto Ql (Bld)0.1 /100{WBC}0-0.5FTrinity Health SystemPlatelet adequacy [Presence] in Blood by Light microscopyOrdered By: Paige Luther on 71-30-0316Aqwuolrpo LM Ql (Bld)NormalNormalGerman Hospital Platelet mean volume Auto (Bld) [Entitic vol]Ordered By: Paige Luther on 62-83-3176Cbctltpp mean volume (Bld) [Entitic vol]10.6 fLHigh6.6-10.1FTrinity Health SystemPlatelet morphology finding [Identifier] in BloodOrdered By: Paige Luther on 86-20-3487Ezwsgdoo morphology finding Nom (Bld)Normal NormalGerman HospitalPlatelets Auto (Bld) [#/Vol]Ordered By: Paige Luther on 15-87-1241Eavfaijau (Bld) [#/Vol]277 10*3/bN083-129ShksxetasGerman HospitalPoikilocytosis [Presence] in Blood by Light microscopy Ordered By: Paige Luther on 10-33-3151Djuehlydnoxyhu LM Ql (Bld)Marked German HospitalPolychromasia [Presence] in Blood by Light microscopyOrdered By: Paige Luther on 84-29-3497Urkgnlzabxdhs LM Ql (Bld) [facility] EastPotassium [Moles/volume] in Serum or PlasmaOrdered By: Paige Luther on 44-34-1636Kroqoebki [Moles/Vol]5.1 mmol/L 3.5-5.1FTrinity Health SystemProtein [Mass/volume] in Serum or Plasma Ordered By: Paige Luther on 37-62-4533Lithece [Mass/Vol]5.7 g/dLLow6.4-8.9 German HospitalProthrombin time (PT)Ordered By: Paige Luther on 52-65-5729IS Coag (PPP) [Time]15.5 sHigh9.0-12.9German HospitalComment on above:A hematocrit value greater than 55% may lead to inaccurate results in coagulation testing. Patientshaving hematocrit values >55% require a special collection tube for coagulation studies. Please contact the laboratory at [phone] for redraw instructions.RBC Auto (Bld) [#/Vol]Ordered By: Paige Luther on 40-49-2609SSO (Bld) [#/Vol]3.11 10*6/uLLow3.90-5.60 German HospitalRBC morphologyOrdered By: Paige Luther on 24-12-0861SQX morphology finding Nom (Bld)N/[facility] Schistocytes [Presence] in Blood by Light microscopyOrdered By: Paige Luther on 35-73-4564Tkcoamjplcam LM Ql (Bld)[facility] Serum or plasma albumin/globulin mass ratioOrdered By: Paige Luther on 15-84-9771Glassaj/Globulin [Mass ratio]1.4 {ratio}[facility] Centererum or plasma anion gap determinationOrdered By: Paige Luther on 59-04-1708Exuot gap [Moles/Vol]12.0 mmol/L6.0-15.0[facility] Centererum or plasma non-glucuronidated bilirubin measurement (mass/volume) Ordered By: Paige Luther on 95-96-6621Gfimsrvxc.indirect [Mass/Vol]0.4 mg/dL [facility] Medical Centerodium [Moles/volume] in Serum or PlasmaOrdered By: Paige Luther on 99-75-7254Ywnxmx [Moles/Vol]133 mmol/JXgv272-979NjuboblerGerman HospitalTarget cellsOrdered By: Paige Luther on 02-05-2024 Target cells LM Ql (Bld)SlightGerman HospitalTroponin I.cardiac [Mass/volume] in Serum or Plasma by Detection limit <= 0.01 ng/Ordered By: Paige Luther on 57-73-8430Mskokmqc I.cardiac DL <= 0.01 ng/mL [Mass/Vol] 85.5 pg/mLHigh0.0-20.0German HospitalComment on above:Critical Result : Called to and read back by: PAIGE BENNETT at: 02/06/2024 00:36:33 by:[id number] nitrogen [Mass/volume] in Serum or PlasmaOrdered By: Paige Luther on 61-33-3615Vbmg nitrogen [Mass/Vol]58 mg/dLHigh7-25German HospitalWBC Auto (Bld) [#/Vol]Ordered By: Paige Luther on 79-05-3696JYX (Bld) [#/Vol]9.0 10*3/uL4.1-10.5FTrinity Health SystemCBC AND AUTO DIFFon 63-02-7550JUAJENCO BASOPHIL0.1 X10E9/LNormal0.0-0.2PShelby Memorial HospitalComment on above:Performed By: #### CBCA, 84165-7, PINR, 08648-0, 47255- 7, 38080-6, 95501-5, THYR, 98643-4, CMP, 80852-6, 2157-6 #### [facility] ([id number]) [address] [place] [address] #### HA1C #### [facility] ([id number]) [address], [address] [place], [place] [address]NQLKFKPMOQW9+AbnormalNONEProMedica Lovell HospitalComment on above:Performed By: #### CBCA, 92865-6, PINR, 87026-8, 37987-1, 93511-9, 55209- 4, THYR, 34060-9, CMP, 46958-7, 2157-6 #### [facility] ([id number]) [address] [place] [address] #### HA1C #### [facility] ([id number]) [address], [address] [place], [place] [address]Miyh form neutrophils/100 WBC (Bld)1.0 %NormalProMedica Lovell HospitalComment on above:Performed By: #### CBCA, 26866-2, PINR, 48704-1, 91134- 7, 03748-4, 36410-4, THYR, 10742-2, CMP, 62838-6, 7-6 #### [facility] ([id number]) [address] [place] [address] #### HA1C #### [facility] ([id number]) [address], [address] [place], [place] [address]Xkxwwquqo/100 WBC (Bld)1.0 %NormalProBerger Hospital Hospital Comment on above:Performed By: #### CBCA, 42244-0, PINR, 29336-6, 08402-3, 83115-1, 68712-4, THYR, 01394-3, CMP, 26566-4, 2157-6 #### [facility] ([id number]) [address] [place], [place] [address] #### HA1C #### [facility] ([id number]) [address], [address] [place], [place] [address]CTCH4+AbnormalNONEProMedica Stiles HospitalComment on above: Performed By: #### CBCA, 80885-7, PINR, 92795-4, 57751-5, 61073-1, 89775-4, THYR, 66248-4, CMP, 23414-2, 2156-6 #### [facility] ([id number]) [address] [place] [address] #### HA1C #### [facility] ([id number]) [address] [place] [address], [address] [place], [place] [address]Upzspispxjr (Bld) [#/Vol]0.2 10*3/uLNormal0.0-0.4ProAvita Health Systemca Dayton Children'S HospitalComment on above:Performed By: #### CBCA, 08129-8, PINR, 95722-0, 45280-5, 26783-0, 69842-4, THYR, 35520-1, CMP, 37778-1, 2156-6 #### [facility] ([id number]) [address] [place] [address] #### HA1C #### [facility] ([id number]) [address] [place] [address], [address] [place], [place] [address]Uxnyzarggym/100 WBC (Bld)1.9 %NormalProGuernsey Memorial Hospital Comment on above:Performed By: #### CBCA, 82006-6, PINR, 73703-2, 20480-4, 85257-2, 02194-1, THYR, 48971-6, CMP, 78144-2, 2156- #### [facility] ([id number]) [address] [place] [address] #### HA1C #### [facility] ([id number]) [address] [place] [address], [address] [place], [place] [address]Iyzahbqmtdm distribution width (RBC) [Ratio]19.3 %High11.5-15.0 [facility] Children'S HospitalComment on above:Performed By: #### CBCA, 82167-7, PINR, 44248-1, 33223-7, 44528-6, 95947-6, THYR, 77273-0, CMP, 87549-1, 2156-6 #### [facility] ([id number]) [address] [place] [address] #### HA1C #### [facility] ([id number]) [address], [address] [place], [place] [address]DCZBORLW2+AbnormalNONEProMedica Lovell HospitalComment on above: Performed By: #### CBCA, 83302-8, PINR, 67766-4, 27634-9, 98198-0, 63506-2, THYR, 06696-5, CMP, 09611-6, 2156- #### [facility] ([id number]) [address] [place] [address] #### HA1C #### [facility] ([id number]) [address], [address] [place], [place] [address]Rclfnvwhzn (Bld) [Volume fraction]31.5 %Lws13-54QkeSdhlek Toledo HospitalComment on above:Performed By: #### CBCHe, 80433-0, PINR, 01880-8, 27450- 7, 71935-4, 95103-9, THYR, 84677-6, CMP, 65617-8, 2156- #### [facility] ([id number]) [address] [place] [address] #### HA1C #### [facility] ([id number]) [address], [address] [place], [place] [address]Vhurylmdcc (Bld) [Mass/Vol]10.4 g/dLLow13.0-17.0ProGuernsey Memorial HospitalComment on above:Performed By: #### CBCA, 26331-7, PINR, 56220-8, 05680-2, 24778-4, 02348-6, THYR, 58518-2, CMP, 07591-0, 2157-6 #### [facility] ([id number]) [address] [place] [address] #### HA1C #### [facility] ([id number]) [address] [place] [address], [address] [place], [place] [address]ZVDURVGKODA5+AbnormalNONEProMedica Lovell HospitalComment on above:Performed By: #### CBCA, 02754-2, PINR, 85125-8, 41681-4, 48699-6, 36947- 4, THYR, 72952-3, CMP, 53110-7, 2157-6 #### [facility] ([id number]) [address] [place] [address] #### HA1C #### [facility] ([id number]) [address] [place] [address], [address] [place], [place] [address]RETCBDZZGS, ATYPICAL1.0 %NormalProMedica Lovell HospitalComment on above:Performed By: #### CBCA, 11166-0, PINR, 90999-3, 10471-0, 63548-4, 11505-0, THYR, 03697-3, CMP, 21164-7, 2156-6 #### [facility] ([id number]) [address] [place] [address] #### HA1C #### [facility] ([id number]) [address] [place] [address], [address] [place], [place] [address]Sjpjkcjhyjy (Bld) [#/Vol]1.9 10*3/uLNormal1.0-3.5ProMedica Lovell HospitalComment on above:Performed By: #### CBCA, 14615-4, PINR, 88748-6, 49210-9, 29464-8, 74318-3, THYR, 93678-4, CMP, 84746-4, 2157-6 #### [facility] ([id number]) [address] [place] [address] #### HA1C #### [facility] ([id number]) [address], [address] [place], [place] [address]Rhscexhtgxm/100 WBC (Bld)20.0 %NormalVan Wert County Hospital Comment on above:Performed By: #### CBCA, 45701-8, PINR, 97195-1, 07642-6, 23460-7, 19490-7, THYR, 82743-0, CMP, 28914-9, 2157-6 #### [facility] ([id number]) [address] [place] [address] #### HA1C #### [facility] ([id number]) [address], [address] [place], [place] [address]YOR (RBC) [Entitic mass]24.6 geNzx31-68HimSeoqcbVan Wert County Hospital Comment on above:Performed By: #### CBCA, 93931-0, PINR, 17621-4, 49997-6, 25864-5, 21950-4, THYR, 29205-9, CMP, 73965-1, 2156-6 #### [facility] ([id number]) [address] [place] [address] #### HA1C #### [facility] ([id number]) [address] [facility] [facility] [place], [place] [address]KDPI (RBC) [Mass/Vol]32.9 g/dTXcqqbm03-63KycYrxtvzVan Wert County HospitalComment on above:Performed By: #### CBCA, 55885-9, PINR, 16020-6, 26090- 7, 79567-2, 29085-1, THYR, 14878-1, CMP, 39299-3, 7-6 #### [facility] ([id number]) [address] [place] [address] #### HA1C #### [facility] ([id number]) [address], [address] [place], [place] [address]CVI (RBC) [Entitic vol]75 oRLam18-682QczEwairgVan Wert County Hospital Comment on above:Performed By: #### CBCA, 43434-4, PINR, 66752-4, 14556-7, 73630-1, 96469-9, THYR, 63077-8, CMP, 75465-3, 2157-6 #### [facility] ([id number]) [address] [place] [address] #### HA1C #### [facility] ([id number]) [address] [facility] [facility] [place], [place] [address]Cxxhdutzp (Bld) [#/Vol]0.9 10*3/uLNormal0-0.9Van Wert County HospitalComment on above:Performed By: #### CBCA, 56779-7, PINR, 91833-1, 92284- 7, 09912-7, 26491-4, THYR, 83856-9, CMP, 16697-0, 2156-6 #### [facility] ([id number]) [address] [place] [address] #### HA1C #### [facility] ([id number]) [address], [address] [place], [place] [address]Bnetzzsbk/100 WBC (Bld)9.5 %NormalVan Wert County Hospital Comment on above:Performed By: #### CBCA, 69679-5, PINR, 69183-6, 56874-4, 57014-0, 70921-2, THYR, 00690-6, CMP, 83091-4, 2156-6 #### [facility] ([id number]) [address] [place] [address] #### HA1C #### [facility] ([id number]) [address] [place], [place] [address]Sehljwvsaim (Bld) [#/Vol]6.1 10*3/uLNormal1.5-6.6Pro[facility] Lovell HospitalComment on above:Performed By: #### CBCA, 64925-4, PINR, 35386-7, 33389-9, 94087-3, 61250-6, THYR, 82933-4, CMP, 69216-9, 2157-6 #### [facility] ([id number]) [address] [place] [address] #### HA1C #### [facility] ([id number]) [address], [address] [place], [place] [address]Diizsabr mean volume (Bld) [Entitic vol]10.6 fLNormal7-12 [facility] HospitalComment on above:Performed By: #### CBCA, 40205-6, PINR, 43947-6, 31912-5, 95667-2, 64169-5, THYR, 08314-0, CMP, 98147-2, 2157-6 #### [facility] ([id number]) [address] [place] [address] #### HA1C #### [facility] ([id number]) [address], [address] [place], [place] [address]Pfqybjowj (Bld) [#/Vol]245 10*3/aQRfplbz484-796IkgLrqcvs [place] HospitalComment on above:Performed By: #### CBCA, 85104-3, PINR, 07656-7, 13838- 7, 36140-6, 54698-0, THYR, 41322-8, CMP, 60322-5, 2157-6 #### [facility] ([id number]) [address] [place] [address] #### HA1C #### [facility] ([id number]) [address], [address] [place], [place] [address]CRE COUNT4.22 X10E12/LNormal4.10-5.70[facility] Comment on above:Performed By: #### CBCA, 19780-3, PINR, 13839-3, 37796-3, 54538-6, 91966-5, THYR, 58002-1, CMP, 99751-2, 2157-6 #### [facility] ([id number]) [address] [place] [address] #### HA1C #### [facility] ([id number]) [address], [address] [place], [place] [address]MWD ETACXJWDPM98.6 %NormalProBerger Hospital HospitalComment on above:Performed By: #### CBCA, 02549-7, PINR, 61924-6, 62795-7, 80219-7, 35540- 4, THYR, 28373-1, CMP, 05597-9, 2156-6 #### [facility] ([id number]) [address] [place] [address] #### HA1C #### [facility] ([id number]) [address] [place] [address], [address] [place], [place] [address]TMRRHA1+AbnormalNONEProMedica Lovell HospitalComment on above: Performed By: #### CBCA, 97547-9, PINR, 94871-8, 73780-2, 73730-9, 66605-0, THYR, 96510-4, CMP, 38324-8, 2156-6 #### [facility] ([id number]) [address] [place] [address] #### HA1C #### [facility] ([id number]) [address] [place] [address], [address] [place], [place] [address]AWI (Bld) [#/Vol]9.2 10*3/uLNormal4.0-11.0[facility] HospitalComment on above:Performed By: #### CBCA, 26704-3, PINR, 78701-3, 51225- 7, 32598-9, 28607-6, THYR, 00548-9, CMP, 33717-5, 2157-6 #### [facility] ([id number]) [address] [place], [place] [address] #### HA1C #### [facility] ([id number]) [address] [place] [address], [address] [place], [place] [address]SY [Catalytic activity/Vol]on 80-46-5637SVN867 U/WDohu25-718 [facility] HospitalComment on above:Performed By: #### CBCA, 89051-9, PINR, 85761-6, 39308-6, 52769-4, 18080-4, THYR, 17154-4, CMP, 08655-4, 2157-6 #### [facility] ([id number]) [address] [place] [address] #### HA1C #### [facility] ([id number]) [address] [place] [address], [address] [place], [place] [address]QVF033 U/JRtsz85-866VbbLuvajh [facility] HospitalComment on above: Performed By: #### CBCHe, 04679-1, PINR, 19146-0, 66053-6, 26361-1, 19228-9, THYR, 65210-3, CMP, 23246-8, 2157-6 #### [facility] ([id number]) [address] [place] [address] #### HA1C #### [facility] ([id number]) [address] [place] [address], [address] [place], [place] [address]ICUJJBKVCGCWS METABOLIC PANELon 58-26-1342Abjwnbc [Mass/Vol]3.4 g/dLNormal3.2-5.3[facility]ell HospitalComment on above:Performed By: #### CBCA, 65955-1, PINR, 29984-2, 74332-0, 46977-3, 11233-4, THYR, 72832-5, CMP, 62784-5, 2157-6 #### [facility] ([id number]) [address] [place] [address] #### HA1C #### [facility] ([id number]) [address] [facility], [address] [place], [place] [address]BEV [Catalytic activity/Vol]102 U/XKpmtok63-146UcxMwchjd [facility] HospitalComment on above:Performed By: #### CBCA, 66723-6, PINR, 31960-1, 26820- 7, 72617-7, 73159-7, THYR, 12017-8, CMP, 91320-8, 2157-6 #### [facility] ([id number]) [address] [place] [address] #### HA1C #### [facility] ([id number]) [address] [facility] [facility], [address] [place], [place] [address]YWQ [Catalytic activity/Vol]26 U/LNormal0-40ProGu[facility]sey Memorial HospitalComment on above:Performed By: #### CBCA, 61095-9, PINR, 18236-8, 32093- 7, 32362-1, 28873-1, THYR, 18327-6, CMP, 23607-7, 7-6 #### [facility] ([id number]) [address] [place] [address] #### HA1C #### [facility] ([id number]) [address] [facility], [address] [place], [place] [address]Ygccd gap [Moles/Vol]9 mmol/LNormal5-15[facility] Comment on above:Performed By: #### CBCA, 71576-5, PINR, 70004-7, 91547-7, 34325-0, 29105-7, THYR, 93411-4, CMP, 95122-4, 2157-6 #### [facility] ([id number]) [address] [place] [address] #### HA1C #### [facility] ([id number]) [address] [place] [address], [address] [place], [place] [address]NBM [Catalytic activity/Vol]31 U/LNormal0-41[facility]ell HospitalComment on above:Performed By: #### CBCA, 56782-4, PINR, 27705-3, 41844- 7, 32309-5, 42853-2, THYR, 30927-4, CMP, 12015-8, 7-6 #### [facility] ([id number]) [address] [place] [address] #### HA1C #### [facility] ([id number]) [address] [place] [address], [address] [place], [place] [address]Yhcegqvva [Mass/Vol]0.7 mg/dLNormal0.3-1.2[facility]ell HospitalComment on above:Performed By: #### CBCA, 47222-7, PINR, 21996-6, 25896- 7, 82191-7, 82931-1, THYR, 43859-5, CMP, 25705-7, 7-6 #### [facility] ([id number]) [address] [place] [address] #### HA1C #### [facility] ([id number]) [address] [place] [address], [address] [place], [place] [address]Azpnbdd [Mass/Vol]8.5 mg/dLNormal8.5-10.5ProMedCleveland Clinic Foundation HospitalComment on above:Performed By: #### CBCA, 56788-2, PINR, 80080-2, 93064- 7, 55250-7, 66691-6, THYR, 49439-6, CMP, 18734-5, 2157-6 #### [facility] ([id number]) [address] [place] [address] #### HA1C #### [facility] ([id number]) [address], [address] [place], [place] [address]Thmdimnd [Moles/Vol]103 mmol/KSzxqaa86-660TuqSccakz [facility] HospitalComment on above:Performed By: #### WILLIAM, 34615-3, PINR, 99217-8, 93982- 7, 71715-4, 86589-6, THYR, 47414-8, CMP, 48206-4, 2157-6 #### [facility] ([id number]) [address] [place], [place] [address] #### HA1C #### [facility] ([id number]) [address], [address] [place], [place] [address]TC0 [Moles/Vol]24 mmol/ZJsovbi84-31UohCmskarShelby Memorial Hospital Comment on above:Performed By: #### WILLIAM, 20902-5, PINR, 63886-1, 32973-5, 50479-4, 29518-2, THYR, 05618-2, CMP, 14487-7, 2156-6 #### [facility] ([id number]) [address] [place] [address] #### HA1C #### [facility] ([id number]) [address], [address] [place], [place] [address]Rnqcbvyovu [Mass/Vol]0.77 mg/dLNormal0.60-1.30ProGuernsey Memorial HospitalComment on above:Result Comment: METHOD TRACEABLE TO IDMS STANDARD Performed By: #### CBCA, 92906-3, PINR, 62826-2, 76192-2, 95063-4, 45940-3, THYR, 85325-7, CMP, 88393-0, 7-6 #### [facility] ([id number]) [address] [place], [place] [address] #### HA1C #### [facility] ([id number]) [address], [address] [place], [place] [address]JJI/1.73 sq M.predicted among non-blacks MDRD (S/P/Bld) [Vol rate/Area]87 mL/min/{1.73_m2}Normal>59ProGuernsey Memorial HospitalComment on above: Result Comment: Reported eGFR is based on the CKD-EPI 2020 equation that does not use a race coefficient.Performed By: #### CBCA, 10322-9, PINR, 34127-1, 99863-7, 59777-9, 86795-8, THYR, 11284-3, CMP, 39245-0, 2156- #### [facility] ([id number]) [address] [place] [address] #### HA1C #### [facility] ([id number]) [address], [address] [place], [place] [address]Xxpjjtv [Mass/Vol]167 mg/fABubl17-06ZmbGkhmgnGuernsey Memorial Hospital Comment on above:Performed By: #### WILLIAM, 58303-5, PINR, 31793-2, 91441-0, 04673-3, 05172-7, THYR, 69458-4, CMP, 55520-9, 2156- #### [facility] ([id number]) [address] [place] [address] #### HA1C #### [facility] ([id number]) [address], [facility] [address] [place], [place] [address]Rchchcyni [Moles/Vol]4.0 mmol/LNormal3.5-5.0ProGuernsey Memorial HospitalComment on above:Performed By: #### CBCA, 22935-5, PINR, 16603-0, 76502- 7, 02552-2, 05255-1, THYR, 93853-6, CMP, 39640-7, 2156- #### [facility] ([id number]) [address] [place] [address] #### HA1C #### [facility] ([id number]) [address], [address] [place], [place] [address]Alscsjb [Mass/Vol]6.0 g/dLNormal6.0-8.0[facility] Comment on above:Performed By: #### CBCA, 85027-4, PINR, 58531-1, 28094-2, 52130-1, 95143-6, THYR, 53519-5, CMP, 36089-8, 2156-6 #### [facility] ([id number]) [address] [place] [address] #### HA1C #### [facility] ([id number]) [address] [facility], [address] [place], [place] [address]Aelqnt [Moles/Vol]136 mmol/BWipmcq960-406LeiRsetsn [facility] HospitalComment on above:Performed By: #### CBCA, 74237-4, PINR, 28661-4, 54710- 7, 08376-3, 39063-0, THYR, 73932-5, CMP, 73503-8, 2156- #### [facility] ([id number]) [address] [place] [address] #### HA1C #### [facility] ([id number]) [address], [address] [place], [place] [address]Odcm nitrogen [Mass/Vol]16 mg/dLNormal5-27ProGu[facility]sey Memorial HospitalComment on above:Performed By: #### CBCA, 37236-5, PINR, 48131-0, 87049- 7, 88639-0, 50985-1, THYR, 59448-3, CMP, 19946-9, 2156- #### [facility] ([id number]) [address] [place] [address] #### HA1C #### [facility] ([id number]) [address], [address] [place], [place] [address]Wvfnnox Glucometer (BldC) [Mass/Vol]on 51-75-1308Ensqanq [Mass/Vol]371 mg/lMOary71-52OafVsjtus [facility]ell HospitalGlucose [Mass/Vol]181 mg/dL Jmlc70-97SaaPkcrqm [facility] HospitalMAGNESIUMon 98-05-3812Ucopyxnqf [Mass/Vol]1.6 mg/dLLow1.8-2.6[facility]ell HospitalComment on above:Performed By: #### WILLIAM, 85718-2, PINR, 38395-3, 73946-7, 43509-7, 85705-1, THYR, 92727-2, CMP, 74214-3, 2156-6 #### [facility] ([id number]) [facility] [address] [place] [address] #### HA1C #### [facility] ([id number]) [address] [facility], [address] [place], [place] [address]OO [Catalytic activity/Vol]on 58-57-0782PIE268 U/ZCmwp93-571 [facility] HospitalComment on above:Performed By: #### WILLIAM, 65585-1, PINR, 67058-1, 43202-3, 13961-0, 51484-0, THYR, 39755-7, CMP, 58346-5, 2156- #### [facility] ([id number]) [address] [place] [address] #### HA1C #### [facility] ([id number]) [address] [facility], [address] [place], [place] [address]DXJ200 U/MEajj21-851PwdGinfdq [facility] HospitalComment on above: Performed By: #### WILLIAM, 63935-3, PINR, 67949-9, 14335-5, 64109-6, 01752-9, THYR, 62310-4, CMP, 76147-2, 2156- #### [facility] ([id number]) [address] [place], [place] [address] #### HA1C #### [facility] ([id number]) [address] [place] [address], [address] [place], [place] [address]QSM282 U/SPgpj23-996CbvYgzhyv [facility] HospitalComment on above: Performed By: #### CBCA, 70818-5, PINR, 96119-5, 14107-4, 50413-7, 74945-3, THYR, 99688-8, CMP, 66663-8, 2157-6 #### [facility] ([id number]) [address] [place] [address] #### HA1C #### [facility] ([id number]) [address] [place] [address], [address] [place] [address]CMHARZOR BLOOD COUNTon 97-44-5491Msvgsppdiyo distribution width (RBC) [Ratio]19.8 %High11.5-15.0[facility] HospitalComment on above: Performed By: #### CBCA, 26961-2, PINR, 18935-0, 82571-1, 22812-8, 09619-9, THYR, 35806-6, CMP, 01515-3, 7-6 #### [facility] ([id number]) [address] [place] [address] #### HA1C #### [facility] ([id number]) [address] [place] [address], [address] [place] [address]Qquvbibrqh (Bld) [Volume fraction]34.0 %Xzp23-38OjbEsxynj [facility] HospitalComment on above:Performed By: #### CBCA, 89523-0, PINR, 02846-9, 38109- 7, 08211-4, 89884-9, THYR, 02505-1, CMP, 31022-5, 2157-6 #### [facility] ([id number]) [address] [place], [place] [address] #### HA1C #### [facility] ([id number]) [address], [address] [place], [place] [address]Ecnwaenoba (Bld) [Mass/Vol]11.0 g/dLLow13.0-17.0ProGu[facility]sey Memorial HospitalComment on above:Performed By: #### CBCA, 34133-6, PINR, 15518-2, 44822-8, 50094-1, 42682-4, THYR, 68284-9, CMP, 59405-9, 2157-6 #### [facility] ([id number]) [address] [place] [address] #### HA1C #### [facility] ([id number]) [address] [facility], [address] [place], [place] [address]NRV (RBC) [Entitic mass]24.3 vaLwn24-11HhaUbwqav [facility] Comment on above:Performed By: #### CBCA, 22180-3, PINR, 06092-5, 88287-2, 50626-5, 66408-0, THYR, 16838-4, CMP, 87194-0, 2156-6 #### [facility] ([id number]) [address] [place] [address] #### HA1C #### [facility] ([id number]) [address], [address] [place], [place] [address]CHOP (RBC) [Mass/Vol]32.3 g/aECvvkrq55-12AhhPudtjm [facility] HospitalComment on above:Performed By: #### CBCA, 17077-6, PINR, 35771-0, 66946- 7, 66336-8, 48946-3, THYR, 27934-5, CMP, 74305-1, 2156-6 #### [facility] ([id number]) [address] [place] [address] #### HA1C #### [facility] ([id number]) [address], [address] [place], [place] [address]VLT (RBC) [Entitic vol]75 fDIrq05-295RdcYaomzhGuernsey Memorial Hospital Comment on above:Performed By: #### CBCA, 55554-2, PINR, 42387-5, 10495-7, 41278-1, 03528-3, THYR, 18529-3, CMP, 49738-0, 2157-6 #### [facility] ([id number]) [address] [place] [address] #### HA1C #### [facility] ([id number]) [address], [address] [place], [place] [address]Nmfkwxjq mean volume (Bld) [Entitic vol]10.5 fLNormal7-12 [facility] HospitalComment on above:Performed By: #### CBCA, 75106-3, PINR, 18470-2, 78625-6, 36239-0, 70820-7, THYR, 08986-2, CMP, 05667-9, 7-6 #### [facility] ([id number]) [address] [place] [address] #### HA1C #### [facility] ([id number]) [address], [address] [place], [place] [address]Rvwopnkwl (Bld) [#/Vol]237 10*3/mVQwcqfd290-741MahYhziak [facility] HospitalComment on above:Performed By: #### CBCA, 49027-0, PINR, 80397-0, 19017- 7, 13656-8, 59334-0, THYR, 62882-3, CMP, 83296-7, 7-6 #### [facility] ([id number]) [address] [place] [address] #### HA1C #### [facility] ([id number]) [address] [facility], [address] [place], [place] [address]NLR COUNT4.51 X10E12/LNormal4.10-5.70[facility] Comment on above:Performed By: #### CBCA, 86542-2, PINR, 05012-6, 65111-7, 90964-0, 08562-8, THYR, 23630-0, CMP, 78259-8, 2157-6 #### [facility] ([id number]) [address] [place] [address] #### HA1C #### [facility] ([id number]) [address] [place] [address], [address] [place], [place] [address]QWS (Bld) [#/Vol]12.3 10*3/uLHigh4.0-11.0ProGu[facility] Memorial HospitalComment on above:Performed By: #### CBCA, 15274-6, PINR, 89031-1, 47042- 7, 59851-4, 01201-4, THYR, 64188-8, CMP, 40123-6, 2157-6 #### [facility] ([id number]) [address] [place] [address] #### HA1C #### [facility] ([id number]) [address] [place] [address], [address] [place], [place] [address]YKZENJYSVOYVL METABOLIC PANELon 96-43-9069Axupane [Mass/Vol]3.7 g/dLNormal3.2-5.3ProMedKnox Community HospitalComment on above:Performed By: #### CBCA, 54654-4, PINR, 59305-4, 56714-6, 43850-0, 10228-6, THYR, 03101-2, CMP, 83450-9, 2157-6 #### [facility] ([id number]) [address] [place] [address] #### HA1C #### [facility] ([id number]) [address] [place] [address], [address] [place], [place] [address]BRC [Catalytic activity/Vol]117 U/CXrnoag45-836RhmYippda Stiles HospitalComment on above:Performed By: #### WILLIAM, 47870-3, PINR, 04722-6, 16299- 7, 70630-0, 10595-5, THYR, 50274-3, CMP, 49624-8, 2157-6 #### [facility] ([id number]) [address] [place] [address] #### HA1C #### [facility] ([id number]) [address] [place] [address], [address] [place], [place] [address]XLY [Catalytic activity/Vol]29 U/LNormal0-40Pro[facility] Stiles HospitalComment on above:Performed By: #### WILLIAM, 65949-2, PINR, 64850-0, 51855- 7, 88194-1, 45887-0, THYR, 39744-1, CMP, 19395-3, 2157-6 #### [facility] ([id number]) [address] [place] [address] #### HA1C #### [facility] ([id number]) [address] [place] [address], [address] [place], [place] [address]Mjrdm gap [Moles/Vol]13 mmol/LNormal5-15ProAvita Health Systemca [facility]ell HospitalComment on above:Performed By: #### WILLIAM, 40154-2, PINR, 66066-9, 88354- 7, 81938-3, 96144-7, THYR, 96662-8, CMP, 67133-9, 2157-6 #### [facility] ([id number]) [address] [place] [address] #### HA1C #### [facility] ([id number]) [address] [place] [address], [address] [place], [place] [address]ITQ [Catalytic activity/Vol]51 U/LHigh0-41Pro[facility] Stiles HospitalComment on above:Performed By: #### WILLIAM, 23514-9, PINR, 07732-2, 56445- 7, 24848-3, 35622-2, THYR, 35738-0, CMP, 63091-4, 2156-6 #### [facility] ([id number]) [address] [place] [address] #### HA1C #### [facility] ([id number]) [address] [facility], [address] [place], [place] [address]Gsfdjiiun [Mass/Vol]0.7 mg/dLNormal0.3-1.2ProMedCleveland Clinic Foundation HospitalComment on above:Performed By: #### CBCA, 21174-4, PINR, 39402-8, 72352- 7, 86375-9, 03844-4, THYR, 29762-2, CMP, 80696-8, 2156-6 #### [facility] ([id number]) [address] [place] [address] #### HA1C #### [facility] ([id number]) [address] [facility], [address] [place], [place] [address]Bzictsx [Mass/Vol]8.5 mg/dLNormal8.5-10.5ProMedCleveland Clinic Foundation HospitalComment on above:Performed By: #### CBCA, 17704-8, PINR, 77084-4, 90763- 7, 14704-9, 65692-4, THYR, 46719-3, CMP, 44668-6, 2156-6 #### [facility] ([id number]) [address] [place] [address] #### HA1C #### [facility] ([id number]) [address], [address] [place], [place] [address]Bgdwdnzg [Moles/Vol]103 mmol/BGbdgcd90-115KivJpprfx [facility] HospitalComment on above:Performed By: #### CBCA, 30270-8, PINR, 36894-0, 45131- 7, 03774-9, 16317-3, THYR, 50787-4, CMP, 37998-9, 7-6 #### [facility] ([id number]) [address] [place] [address] #### HA1C #### [facility] ([id number]) [address] [facility], [address] [place], [place] [address]IU6 [Moles/Vol]19 mmol/ADze88-08JzcLspmgt [facility]S HospitalComment on above:Performed By: #### WILLIAM, 59884-6, PINR, 08951-4, 53962-7, 56063-9, 16683-3, THYR, 27702-9, CMP, 16408-1, 2156-6 #### [facility] ([id number]) [address] [place] [address] #### HA1C #### [facility] ([id number]) [address] [place] [address], [address] [place] [address]Dcmoezdeaa [Mass/Vol]0.72 mg/dLNormal0.60-1.30ProGuernsey Memorial HospitalComment on above:Result Comment: METHOD TRACEABLE TO IDMS STANDARD Performed By: #### WILLIAM, 82650-9, PINR, 73636-8, 08839-9, 20176-0, 12450-1, THYR, 18235-6, CMP, 14350-7, 2156-6 #### [facility] ([id number]) [address] [place] [address] #### HA1C #### [facility] ([id number]) [address] [place], [place] [address]PAB/1.73 sq M.predicted among non-blacks MDRD (S/P/Bld) [Vol rate/Area]89 mL/min/{1.73_m2}Normal>59ProGuernsey Memorial HospitalComment on above: Result Comment: Reported eGFR is based on the CKD-EPI 2020 equation that does not use a race coefficient.Performed By: #### CBCA, 03484-1, PINR, 65905-8, 42834-5, 92047-9, 63394-4, THYR, 29672-3, CMP, 95962-3, 2156-6 #### [facility] ([id number]) [address] [place] [address] #### HA1C #### [facility] ([id number]) [address], [address] [place], [place] [address]Fvfpqpz [Mass/Vol]208 mg/dBWzaf23-19KrkOhfxhpGuernsey Memorial Hospital Comment on above:Performed By: #### CBCA, 02336-8, PINR, 37979-5, 89071-0, 38152-8, 39755-3, THYR, 41639-5, CMP, 67369-5, 2156-6 #### [facility] ([id number]) [address] [place] [address] #### HA1C #### [facility] ([id number]) [address], [address] [place], [place] [address]Ybmhhyvfp [Moles/Vol]4.2 mmol/LNormal3.5-5.0ProGuernsey Memorial HospitalComment on above:Performed By: #### CBCHe, 21764-2, PINR, 71061-1, 34506- 7, 76984-9, 17137-3, THYR, 48270-7, CMP, 11133-2, 2156-6 #### [facility] ([id number]) [address] [place], [place] [id number] #### HA1C #### [facility] ([id number]) [address], [address] [place], [place] [address]Txaeixw [Mass/Vol]6.6 g/dLNormal6.0-8.0[facility] Comment on above:Performed By: #### CBCA, 02028-6, PINR, 42263-7, 28491-1, 89000-1, 19827-7, THYR, 15397-4, CMP, 81173-5, 2157-6 #### [facility] ([id number]) [address] [place] [address] #### HA1C #### [facility] ([id number]) [address] [place] [address], [address] [place], [place] [address]Eiogsa [Moles/Vol]135 mmol/JAeljtj560-541LwwMouqrh Lovell HospitalComment on above:Performed By: #### CBCHe, 09483-0, PINR, 06817-9, 48100- 7, 91603-7, 08843-0, THYR, 69270-4, CMP, 61284-6, 2156-6 #### [facility] ([id number]) [address] [place] [address] #### HA1C #### [facility] ([id number]) [address] [place] [address], [address] [place], [place] [address]Aiux nitrogen [Mass/Vol]18 mg/dLNormal5-27ProBerger Hospital HospitalComment on above:Performed By: #### WILLIAM, 37183-2, PINR, 45585-1, 77061- 7, 93732-2, 26840-6, THYR, 77214-6, CMP, 34140-5, 2156- #### [facility] ([id number]) [address] [place] [address] #### HA1C #### [facility] ([id number]) [address] [place] [address], [address] [place], [place] [address]GGQOKSCELOVVvw 35-03-3240IEOFXQDHMGQ3+AbnormalNONEProMedica Lovell HospitalComment on above:Performed By: #### CBCA, 44830-2, PINR, 37778-8, 59467-2, 63765-5, 32779-3, THYR, 75329-3, CMP, 90727-6, 2156-6 #### [facility] ([id number]) [address] [place] [address] #### HA1C #### [facility] ([id number]) [address], [address] [place], [place] [address]Hrvycpupblnp Ql (Bld)2+AbnormalNONEProMedica Lovell Hospital Comment on above:Performed By: #### CBCA, 88769-5, PINR, 19943-8, 05284-7, 60507-5, 16807-2, THYR, 06100-1, CMP, 38999-7, 2156- #### [facility] ([id number]) [address] [place] [address] #### HA1C #### [facility] ([id number]) [address] [place], [place] [address]Dewv form neutrophils/100 WBC (Bld)9.0 %NormalProMedica Dayton Children'S HospitalComment on above:Performed By: #### CBCA, 51670-7, PINR, 70322-8, 24448- 7, 75539-6, 65995-1, THYR, 91190-6, CMP, 79873-5, 2156- #### [facility] ([id number]) [address] [place] [address] #### HA1C #### [facility] ([id number]) [address], [address] [place], [place] [address]VLRP1+AbnormalNONEProMedKnox Community HospitalComment on above: Performed By: #### CBCA, 70943-6, PINR, 70492-5, 84148-2, 05892-2, 54731-0, THYR, 42922-5, CMP, 67945-6, 2156-12 #### [facility] [facility] ([id number]) [address] [place] [address] #### HA1C #### [facility] ([id number]) [address], [address] [place], [place] [address]Bnwjoidbqca (Bld) [#/Vol]0.1 10*3/uLNormal0.0-0.4ProMedica Lovell HospitalComment on above:Performed By: #### CBCA, 71475-9, PINR, 18690-4, 62698-7, 06546-3, 11020-0, THYR, 66093-7, CMP, 87088-5, 2157-6 #### [facility] ([id number]) [address] [place] [address] #### HA1C #### [facility] ([id number]) [address], [address] [place], [place] [address]Ffdmwokrojy/100 WBC (Bld)1.0 %NormalProBerger Hospital Hospital Comment on above:Performed By: #### CBCA, 75713-7, PINR, 63652-7, 37264-8, 71061-9, 50324-6, THYR, 57832-5, CMP, 14526-1, 2156-6 #### [facility] ([id number]) [address] [place] [address] #### HA1C #### [facility] ([id number]) [address], [address] [place], [place] [address]KIHBYAXY9+AbnormalNONEProMedica Lovell HospitalComment on above: Performed By: #### CBCA, 24440-1, PINR, 27909-4, 47264-6, 35657-8, 84300-3, THYR, 71184-5, CMP, 95648-5, 7-6 #### [facility] ([id number]) [address] [place] [address] #### HA1C #### [facility] ([id number]) [address], [address] [place], [place] [address]LCVJOH-WGFCQ BODY1+AbnormalNONEProMedica Lovell HospitalComment on above:Performed By: #### CBCA, 87487-3, PINR, 21564-2, 06097-8, 03607-3, 18230-8, THYR, 67799-6, CMP, 57097-5, 2157-6 #### [facility] ([id number]) [address] [place] [address] #### HA1C #### [facility] ([id number]) [address] [place] [address], [address] [place], [place] [address]VJUIINLHKLA6+AbnormalNONEProMedica Lovell HospitalComment on above:Performed By: #### CBCA, 76642-9, PINR, 82932-0, 20391-9, 21837-1, 45098- 4, THYR, 42798-3, CMP, 19276-9, 7-6 #### [facility] ([id number]) [address] [place] [address] #### HA1C #### [facility] ([id number]) [address] [place] [address], [address] [place], [place] [address]TIEQPDRGYR, ATYPICAL1.0 %NormalProMedica Lovell HospitalComment on above:Performed By: #### CBCA, 22078-4, PINR, 50067-5, 09120-2, 95768-6, 49240-5, THYR, 56413-9, CMP, 45004-0, 2156-6 #### [facility] ([id number]) [address] [place] [address] #### HA1C #### [facility] ([id number]) [address] [place] [address], [address] [place], [place] [address]Gaafykrurmz (Bld) [#/Vol]1.6 10*3/uLNormal1.0-3.5ProMedica Lovell HospitalComment on above:Performed By: #### CBCA, 21879-9, PINR, 90731-8, 30717-6, 52114-8, 08412-6, THYR, 15584-9, CMP, 98013-9, 7-6 #### [facility] ([id number]) [address] [place] [address] #### HA1C #### [facility] ([id number]) [address] [place] [address], [address] [place], [place] [address]Pqltdqmjtep/100 WBC (Bld)12.0 %[facility] Comment on above:Performed By: #### CBCA, 34573-1, PINR, 59901-1, 09869-5, 56684-7, 18595-0, THYR, 55390-1, CMP, 79589-2, 2156-6 #### [facility] ([id number]) [address] [place] [address] #### HA1C #### [facility] ([id number]) [address] [place] [address], [address] [place], [place] [address]Gbpiywwfc (Bld) [#/Vol]1.4 10*3/uLHigh0-0.9Van Wert County HospitalComment on above:Performed By: #### CBCA, 85995-0, PINR, 53997-3, 76954- 7, 05123-9, 09110-6, THYR, 71216-1, CMP, 32383-2, 2156-6 #### [facility] ([id number]) [address] [place] [address] #### HA1C #### [facility] ([id number]) [address] [place] [address], [address] [place], [place] [address]Mvrksulnf/100 WBC (Bld)11.0 %[facility] Comment on above:Performed By: #### CBCA, 39314-3, PINR, 67213-6, 00437-5, 84247-3, 55171-1, THYR, 07627-4, CMP, 36335-4, 2157-6 #### [facility] ([id number]) [address] [place] [address] #### HA1C #### [facility] ([id number]) [address] [place] [address], [address] [place], [place] [address]Hjjavnqnkti (Bld) [#/Vol]9.2 10*3/uLHigh1.5-6.6ProMedica Lovell HospitalComment on above:Performed By: #### CBCA, 67551-2, PINR, 08744-2, 54459- 7, 24345-2, 23526-0, THYR, 70699-5, CMP, 97492-7, 2156-6 #### [facility] ([id number]) [address] [place] [address] #### HA1C #### [facility] ([id number]) [address] [place] [address], [address] [place], [place] [address]UBAGNTYSXBGNS9+AbnormalNONEProMedica Lovell HospitalComment on above:Performed By: #### CBCA, 41984-1, PINR, 42664-8, 80416-4, 20638-5, 84301- 4, THYR, 95427-1, CMP, 46547-8, 2156-6 #### [facility] ([id number]) [address] [place] [address] #### HA1C #### [facility] ([id number]) [address] [place] [address], [address] [place], [place] [address]FAQ RQLYTXUOVC15.0 %NormalProMedica Lovell HospitalComment on above:Performed By: #### CBCA, 10814-0, PINR, 66794-6, 66984-3, 38684-9, 74058- 4, THYR, 95336-5, CMP, 49380-4, 2156-6 #### [facility] ([id number]) [address] [place], [place] [address] #### HA1C #### [facility] ([id number]) [address], [address] [place], [place] [address]SZMDIBUTNG4+AbnormalNONEPCleveland Clinic Lutheran Hospital HospitalComment on above:Performed By: #### WILLIAM, 72802-1, PINR, 56758-0, 96360-7, 94386-3, 68786- 4, THYR, 27436-8, CMP, 93737-1, 2157-6 #### [facility] ([id number]) [address] [place] [address] #### HA1C #### [facility] ([id number]) [address], [address] [place], [place] [address]VBBFWG3+AbnormalNONEProMedCleveland Clinic Foundation HospitalComment on above: Performed By: #### WILLIAM, 07816-3, PINR, 04879-9, 74201-8, 89624-3, 88444-0, THYR, 23648-6, CMP, 17671-0, 2157-6 #### [facility] ([id number]) [address] [place] [address] #### HA1C #### [facility] ([id number]) [address], [address] [place], [place] [address]Intdodw Glucometer (BldC) [Mass/Vol]on 45-16-8818Gmpkulb [Mass/Vol]274 mg/vSXipa03-33FycAieqjyGuernsey Memorial HospitalGlucose [Mass/Vol]426 mg/dL Critically jmel44-45SsaLvbzbkGuernsey Memorial HospitalGlucose [Mass/Vol]450 mg/dL Critically ticj41-24SddNprbur Toledo HospitalGlucose [Mass/Vol]245 mg/dLHigh 65-99ProGuernsey Memorial HospitalHeparin unfractionated Chromogenic method Qn (PPP) on 55-13-8543RBPR XA UFH0.38 IU/mLNormal0.30-0.70[facility] Comment on above:Result Comment: Optimal time for testing is 6 hrs post dosage This test is specific for monitoring patients on UFH, and is not recommended for use with other Anti-Xa medications.Performed By: #### CBCA, 85909-8, PINR, 94816-3, 96496-8, 24840-5, 92860-1, THYR, 61663-0, CMP, 44642-6, 2157-6 #### [facility] ([id number]) [address] [place] [address] #### HA1C #### [facility] ([id number]) [address] [facility], [address] [place], [place] [address]WRCH XA UFH0.44 IU/mLNormal0.30-0.70[facility] Comment on above:Result Comment: Optimal time for testing is 6 hrs post dosage This test is specific for monitoring patients on UFH, and is not recommended for use with other Anti-Xa medications.Performed By: #### WILLIAM, 02649-9, PINR, 39392-3, 20539-5, 28722-4, 62949-9, THYR, 31456-3, CMP, 71856-2, 2156-6 #### [facility] ([id number]) [address] [place] [address] #### HA1C #### [facility] ([id number]) [address] [facility], [address] [place], [place] [address]WSAFNOFWVzq 84-40-8269Ofuwkkwqf [Mass/Vol]1.8 mg/dLNormal1.8-2.6 [facility] HospitalComment on above:Performed By: #### CBCA, 32884-3, PINR, 90150-7, 17412-3, 42884-3, 57479-0, THYR, 29558-4, CMP, 40365-1, 2157-6 #### [facility] ([id number]) [facility] [address] [place] [address] #### HA1C #### [facility] ([id number]) [address], [address] [place], [place] [address]YBS AND AUTO DIFFon 36-21-4478LIDXSPRCWFS8+AbnormalNONEProMedCleveland Clinic Foundation HospitalComment on above:Performed By: #### CBCA, 69971-9, PINR, 02535- 9, 86658-2, 02718-5, 29865-9, THYR, 72902-7, CMP, 65389-9, 2157-6 #### [facility] ([id number]) [address] [place] [address] #### HA1C #### [facility] ([id number]) [address], [address] [place], [place] [address]Ijuuwfdhzlwf Ql (Bld)2+AbnormalNONEPCleveland Clinic Lutheran Hospital Hospital Comment on above:Performed By: #### CBCA, 03253-6, PINR, 64465-4, 99249-9, 00094-5, 61809-7, THYR, 29809-6, CMP, 72495-4, 2157-6 #### [facility] ([id number]) [address] [place] [address] #### HA1C #### [facility] ([id number]) [address], [address] [place], [place] [address]Ptwj form neutrophils/100 WBC (Bld)7.0 %NormalProMedica Lovell HospitalComment on above:Performed By: #### CBCA, 98870-6, PINR, 60700-9, 98917- 7, 77075-7, 06418-4, THYR, 52130-1, CMP, 43418-6, 2157-6 #### [facility] ([id number]) [address] [place], [place] [address] #### HA1C #### [facility] ([id number]) [address], [address] [place], [place] [address]BCPD4+AbnormalNONEPCleveland Clinic Lutheran Hospital HospitalComment on above: Performed By: #### CBCA, 97419-2, PINR, 93090-2, 38772-0, 87519-5, 02880-7, THYR, 31950-4, CMP, 95406-1, 2156-6 #### [facility] ([id number]) [address] [place] [address] #### HA1C #### [facility] ([id number]) [address] [place] [address], [address] [place], [place] [address]Flmcvnotrlb (Bld) [#/Vol]0.6 10*3/uLHigh0.0-0.4ProGuernsey Memorial HospitalComment on above:Performed By: #### CBCA, 72646-2, PINR, 60625-0, 91594- 7, 06201-3, 30529-4, THYR, 64023-0, CMP, 18447-0, 2156- #### [facility] ([id number]) [address] [place] [address] #### HA1C #### [facility] ([id number]) [address] [place] [address], [address] [place], [place] [address]Pjhjxhealpe/100 WBC (Bld)7.0 %NormalVan Wert County Hospital Comment on above:Performed By: #### CBCA, 22568-0, PINR, 27196-6, 12683-1, 67662-1, 30256-0, THYR, 25263-7, CMP, 42032-7, 2156- #### [facility] ([id number]) [address] [place] [address] #### HA1C #### [facility] ([id number]) [address] [place] [address], [address] [place], [place] [address]Hettbzbplew distribution width (RBC) [Ratio]19.3 %High11.5-15.0 [facility]'S HospitalComment on above:Performed By: #### CBCA, 08802-5, PINR, 35432-9, 44000-8, 86663-1, 90598-0, THYR, 24689-4, CMP, 79153-7, 2156-6 #### [facility] ([id number]) [address] [place] [address] #### HA1C #### [facility] ([id number]) [address], [address] [place], [place] [address]EAOEPWKU1+AbnormalNONEProMedica Lovell HospitalComment on above: Performed By: #### CBCA, 92679-7, PINR, 37779-7, 49579-7, 56251-2, 21321-0, THYR, 66036-2, CMP, 35889-8, 2156- #### [facility] ([id number]) [address] [place] [address] #### HA1C #### [facility] ([id number]) [address], [address] [place], [place] [address]Xtemubnihs (Bld) [Volume fraction]29.9 %Osz74-77GpmZpfqdu Toledo HospitalComment on above:Performed By: #### CBCA, 01858-2, PINR, 42631-4, 95992- 7, 46372-6, 68978-4, THYR, 20414-6, CMP, 12057-8, 2156- #### [facility] ([id number]) [address] [place] [address] #### HA1C #### [facility] ([id number]) [address], [address] [place], [place] [address]Nanafcqemc (Bld) [Mass/Vol]10.0 g/dLLow13.0-17.0ProAvita Health Systemca Lovell HospitalComment on above:Performed By: #### CBCA, 43103-6, PINR, 74620-5, 25595-5, 78484-4, 24165-0, THYR, 19114-9, CMP, 71898-5, 2157-6 #### [facility] ([id number]) [address] [place] [address] #### HA1C #### [facility] ([id number]) [address] [place] [address], [address] [place], [place] [address]RHDOXU-WMXQE BODY1+AbnormalNONEProMedica Lovell HospitalComment on above:Performed By: #### CBCA, 92963-0, PINR, 40720-4, 32831-4, 43368-6, 76644-9, THYR, 26157-6, CMP, 36711-9, 2157-6 #### [facility] ([id number]) [address] [place] [address] #### EVERARDO1C #### [facility] ([id number]) [address] [place] [address], [address] [place], [place] [address]VTFRWEKUEGV8+AbnormalNONEProMedica Lovell HospitalComment on above:Performed By: #### CBCA, 30288-4, PINR, 46936-4, 26983-4, 69842-2, 74162- 4, THYR, 00365-8, CMP, 17894-5, 2156-6 #### [facility] ([id number]) [address] [place] [address] #### HA1C #### [facility] ([id number]) [address] [place] [address], [address] [place], [place] [address]Avacgmektym (Bld) [#/Vol]1.9 10*3/uLNormal1.0-3.5ProMedica Lovell HospitalComment on above:Performed By: #### CBCA, 99991-8, PINR, 15300-7, 99496-9, 58394-6, 28722-1, THYR, 89593-0, CMP, 90731-0, 2157-6 #### [facility] ([id number]) [address] [place] [address] #### HA1C #### [facility] ([id number]) [address], [address] [place], [place] [address]Yjishxgmepi/100 WBC (Bld)23.0 %NormalVan Wert County Hospital Comment on above:Performed By: #### CBCA, 43672-9, PINR, 43138-4, 67091-9, 85161-3, 96163-5, THYR, 56613-0, CMP, 54199-4, 2156-6 #### [facility] ([id number]) [address] [place] [address] #### HA1C #### [facility] ([id number]) [address], [address] [place], [place] [address]YZN (RBC) [Entitic mass]24.8 usSde79-37HkeVbudlwVan Wert County Hospital Comment on above:Performed By: #### CBCA, 59442-2, PINR, 72540-5, 00389-1, 93937-6, 84899-2, THYR, 00607-7, CMP, 63181-7, 2156-6 #### [facility] ([id number]) [address] [place] [address] #### HA1C #### [facility] ([id number]) [address], [address] [place], [place] [address]TQRG (RBC) [Mass/Vol]33.4 g/wJAkgfxe32-78GsvMvhenoVan Wert County HospitalComment on above:Performed By: #### CBCA, 77847-1, PINR, 38283-8, 95192- 7, 95314-7, 05987-4, THYR, 74857-6, CMP, 86487-2, 2156-6 #### [facility] ([id number]) [address] [place] [address] #### HA1C #### [facility] ([id number]) [address], [address] [place], [place] [address]NJA (RBC) [Entitic vol]74 fVFxg12-811XpjYbbyvaVan Wert County Hospital Comment on above:Performed By: #### CBCA, 34714-0, PINR, 99014-7, 14909-6, 98277-6, 32464-3, THYR, 54924-3, CMP, 53202-3, 2157-6 #### [facility] ([id number]) [address] [place] [address] #### HA1C #### [facility] ([id number]) [address] [place], [place] [address]Ttimosxhs (Bld) [#/Vol]0.6 10*3/uLNormal0-0.9[facility] HospitalComment on above:Performed By: #### CBCA, 12446-7, PINR, 43700-6, 27194- 7, 68676-1, 82643-3, THYR, 87517-8, CMP, 82667-6, 7-6 #### [facility] ([id number]) [address] [place] [address] #### HA1C #### [facility] ([id number]) [address] [facility] [facility], [address] [place], [place] [address]Myfdsntjg/100 WBC (Bld)7.0 %NormalProGuernsey Memorial Hospital Comment on above:Performed By: #### CBCA, 08187-3, PINR, 81436-4, 31838-3, 38106-5, 11070-4, THYR, 97525-5, CMP, 07395-0, 2156-6 #### [facility] ([id number]) [address] [place] [address] #### HA1C #### [facility] ([id number]) [address], [address] [place], [place] [address]Bpneblgdmwi (Bld) [#/Vol]5.1 10*3/uLNormal1.5-6.6ProMedica Stiles HospitalComment on above:Performed By: #### CBCA, 48059-4, PINR, 57697-7, 55448-7, 75029-8, 67036-0, THYR, 25385-2, CMP, 96891-5, 2157-6 #### [facility] ([id number]) [address] [place] [address] #### HA1C #### [facility] ([id number]) [address], [address] [place], [place] [address]Xrizejod mean volume (Bld) [Entitic vol]10.1 fLNormal7-12 [facility] St[facility] HospitalComment on above:Performed By: #### CBCA, 64018-8, PINR, 57809-6, 48160-9, 72866-6, 53221-2, THYR, 41257-8, CMP, 47791-8, 2157-6 #### [facility] ([id number]) [address] [place] [address] #### HA1C #### [facility] ([id number]) [address], [address] [place], [place] [address]Hzbprireu (Bld) [#/Vol]228 10*3/fFHpdlfv610-611BhnKptjyi Lovell HospitalComment on above:Performed By: #### CBCA, 76818-8, PINR, 73093-1, 21985- 7, 07624-6, 79622-2, THYR, 15011-5, CMP, 09501-6, 2157-6 #### [facility] ([id number]) [address] [place] [address] #### HA1C #### [facility] ([id number]) [address], [address] [place], [place] [address]SRSSBTWYYBFIB9+AbnormalNONEProMedica Stiles HospitalComment on above:Performed By: #### CBCA, 15753-3, PINR, 38796-7, 96697-0, 66097-1, 99152- 4, THYR, 96223-8, CMP, 83314-4, 7-6 #### [facility] ([id number]) [address] [place] [address] #### HA1C #### [facility] ([id number]) [address] [place] [address], [address] [place], [place] [address]UUQ COUNT4.03 X10E12/LLow4.10-5.70ProAv[facility] Systemca [facility] Comment on above:Performed By: #### CBCA, 22998-0, PINR, 14115-7, 36575-4, 60721-0, 80076-9, THYR, 84385-4, CMP, 69348-5, 2156-6 #### [facility] ([id number]) [address] [place] [address] #### HA1C #### [facility] ([id number]) [address] [place] [address], [address] [place], [place] [address]BDK XDHZFYKEMG02.0 %NormalProGuernsey Memorial HospitalComment on above:Performed By: #### CBCA, 99222-2, PINR, 97519-6, 91980-3, 30376-2, 47823- 4, THYR, 33458-3, CMP, 55841-9, 2156-6 #### [facility] ([id number]) [address] [place] [address] #### HA1C #### [facility] ([id number]) [address] [place] [address], [address] [place], [place] [address]HDYGQANBWO9+AbnormalNONEProMedica Lovell HospitalComment on above:Performed By: #### CBCA, 01966-4, PINR, 79701-9, 63318-0, 38671-6, 03271- 4, THYR, 82341-2, CMP, 54795-0, 2157-6 #### [facility] ([id number]) [address] [place] [address] #### HA1C #### [facility] ([id number]) [address] [place] [address], [address] [place], [place] [address]JASVVG5+AbnormalNONEProMedica Lovell HospitalComment on above: Performed By: #### CBCA, 21332-9, PINR, 08696-9, 28904-8, 27433-7, 74699-1, THYR, 67995-5, CMP, 67018-9, 2157-6 #### [facility] ([id number]) [address] [place] [address] #### HA1C #### [facility] ([id number]) [address] [place] [address], [address] [place], [place] [address]EJH (Bld) [#/Vol]8.2 10*3/uLNormal4.0-11.0ProMedica Lovell HospitalComment on above:Performed By: #### CBCA, 16652-5, PINR, 39743-8, 33111- 7, 47474-9, 11207-1, THYR, 48854-1, CMP, 47333-9, 2157-6 #### [facility] ([id number]) [address] [place] [address] #### HA1C #### [facility] ([id number]) [address] [place] [address], [address] [place], [place] [address]MJ [Catalytic activity/Vol]on [id number] U/QDoce03-682 Pro[facility] Lovell HospitalComment on above:Performed By: #### CBCA, 21770-9, PINR, 58675-1, 99728-3, 63298-1, 07339-2, THYR, 40790-7, CMP, 11758-0, 2157-6 #### [facility] ([id number]) [address] [place] [address] #### HA1C #### [facility] ([id number]) [address] [place] [address], [address] [place], [place] [id number] U/VXwaq58-896LqfWzsqziGuernsey Memorial HospitalComment on above: Performed By: #### CBCA, 55850-3, PINR, 95882-1, 58495-2, 96097-7, 56595-7, THYR, 47242-9, CMP, 98231-1, 2157-6 #### [facility] ([id number]) [address] [place] [address] #### HA1C #### [facility] ([id number]) [address] [place] [address], [address] [place], [place] [id number] U/BSrck13-393CvdMsgruqGuernsey Memorial HospitalComment on above: Performed By: #### CBCA, 21471-3, PINR, 71398-3, 86432-4, 26034-3, 96174-3, THYR, 22684-2, CMP, 62226-3, 2157-6 #### [facility] ([id number]) [address] [place] [address] #### HA1C #### [facility] ([id number]) [address] [place] [address], [address] [place] [id number] METABOLIC PANELon 50-08-7162Ktffare [Mass/Vol]3.4 g/dLNormal3.2-5.3[facility]'S HospitalComhills & dales [facility] on above:Performed By: #### CBCA, 75773-7, PINR, 17990-7, 60321-3, 24211-8, 52087-5, THYR, 72600-4, CMP, 24202-0, 2157-6 #### [facility] ([id number]) [address] [place] [address] #### HA1C #### [facility] ([id number]) [address], [address] [place], [place] [address]YXN [Catalytic activity/Vol]109 U/KQugwmm68-711TitFzyhcy Lovell HospitalComment on above:Performed By: #### CBCA, 59654-2, PINR, 42556-2, 36568- 7, 00891-2, 28096-7, THYR, 59051-2, CMP, 88221-7, 2157-6 #### [facility] ([id number]) [address] [place], [place] [address] #### HA1C #### [facility] ([id number]) [address] [place], [place] [address] [Catalytic activity/Vol]27 U/LNormal0-40ProMedica Lovell HospitalComment on above:Performed By: #### DARRELLA, 72708-1, PINR, 40438-5, 15474- 7, 59872-1, 99056-7, THYR, 61334-5, CMP, 77634-7, 2157-6 #### [facility] ([id number]) [address] [place], [place] [address] #### HA1C #### [facility] ([id number]) [address] [facility], [address] [place], [place] [address]Xgthc gap [Moles/Vol]10 mmol/LNormal5-15ProMedica Lovell HospitalComment on above:Performed By: #### CBCA, 84570-6, PINR, 46682-7, 92396- 7, 22226-7, 96398-2, THYR, 24552-4, CMP, 96657-1, 2157-6 #### [facility] ([id number]) [address] [place], [place] [address] #### HA1C #### [facility] ([id number]) [address] [facility], [address] [place], [place] [address]ZRW [Catalytic activity/Vol]69 U/LHigh0-41ProGuernsey Memorial HospitalComment on above:Performed By: #### WILLIAM, 33962-3, PINR, 32974-0, 30265- 7, 78905-9, 69296-6, THYR, 06519-6, CMP, 39412-3, 2157-6 #### [facility] [facility] ([id number]) [address] [place] [address] #### HA1C #### [facility] ([id number]) [address] [place] [address], [address] [place], [place] [address]Zdslsqhma [Mass/Vol]0.6 mg/dLNormal0.3-1.2PShelby Memorial HospitalComment on above:Performed By: #### WILLIAM, 02267-3, PINR, 27201-5, 27783- 7, 17081-1, 85531-6, THYR, 73494-0, CMP, 92838-6, 7-6 #### [facility] ([id number]) [address] [place] [address] #### HA1C #### [facility] ([id number]) [address] [place] [address], [address] [place], [place] [address]Yqzuber [Mass/Vol]8.2 mg/dLLow8.5-10.5PShelby Memorial Hospital Comment on above:Performed By: #### WILLIAM, 05858-0, PINR, 93201-7, 90400-9, 27490-8, 28680-8, THYR, 45010-1, CMP, 75839-0, 2157-6 #### [facility] ([id number]) [address] [place] [address] #### HA1C #### [facility] ([id number]) [address] [place] [address], [address] [place], [place] [address]Lntdqlzw [Moles/Vol]105 mmol/WMohmyg89-076OqoJebrzq [facility]edo HospitalComment on above:Performed By: #### CBCA, 95945-8, PINR, 80509-3, 45003- 7, 65807-4, 07028-8, THYR, 53658-1, CMP, 05530-6, 2156-6 #### [facility] ([id number]) [address] [place] [address] #### HA1C #### [facility] ([id number]) [address] [place] [address], [address] [place], [place] [address]DR9 [Moles/Vol]20 mmol/PSfr51-31UcdBfbdgg Lovell HospitalComment on above:Performed By: #### CBCA, 42392-0, PINR, 08228-8, 80779-5, 43177-4, 76990-1, THYR, 91292-2, CMP, 27002-9, 2156-6 #### [facility] ([id number]) [address] [place] [address] #### HA1C #### [facility] ([id number]) [address] [place] [address], [address] [place], [place] [address]Gxqpuuunms [Mass/Vol]0.79 mg/dLNormal0.60-1.30ProGuernsey Memorial HospitalComment on above:Result Comment: METHOD TRACEABLE TO IDMS STANDARD Performed By: #### CBCA, 64668-3, PINR, 67394-4, 07384-2, 72172-2, 15249-7, THYR, 08243-8, CMP, 88882-7, 2156- #### [facility] ([id number]) [address] [place] [address] #### HA1C #### [facility] ([id number]) [address] [place] [address], [address] [place], [place] [address]JIN/1.73 sq M.predicted among non-blacks MDRD (S/P/Bld) [Vol rate/Area]87 mL/min/{1.73_m2}Normal>59ProMedica Lovell HospitalComment on above: Result Comment: Reported eGFR is based on the CKD-EPI 2020 equation that does not use a race coefficient.Performed By: #### WILLIAM, 35508-2, PINR, 35922-0, 08690-7, 27839-8, 97645-0, THYR, 69122-2, CMP, 08127-1, 215-6 #### [facility] ([id number]) [address] [place] [address] #### HA1C #### [facility] ([id number]) [address] [facility], [address] [place], [place] [address]Lthxesa [Mass/Vol]189 mg/nGHxoj77-61EhiFyjnamVan Wert County Hospital Comment on above:Performed By: #### WILLIAM, 46354-3, PINR, 59669-1, 39282-9, 63558-0, 61300-0, THYR, 52383-4, CMP, 86829-6, 2156- #### [facility] ([id number]) [address] [place] [address] #### HA1C #### [facility] ([id number]) [address] [facility], [address] [place], [place] [address]Rlhqdxuao [Moles/Vol]4.3 mmol/LNormal3.5-5.0Van Wert County HospitalComment on above:Performed By: #### WILLIAM, 12192-9, PINR, 77743-4, 25793- 7, 99870-5, 46038-9, THYR, 38317-6, CMP, 93685-2, 2156- #### [facility] ([id number]) [address] [place] [address] #### HA1C #### [facility] ([id number]) [address] [facility], [address] [place], [place] [address]Fyqlqbi [Mass/Vol]6.1 g/dLNormal6.0-8.0[facility] Comment on above:Performed By: #### CBCA, 30136-6, PINR, 35221-0, 82218-1, 31326-7, 39533-3, THYR, 52173-6, CMP, 22222-5, 2156-6 #### [facility] ([id number]) [address] [place] [address] #### HA1C #### [facility] ([id number]) [address] [facility], [address] [place], [place] [address]Yzpusk [Moles/Vol]135 mmol/RQleayk661-207QrcRaqhfl [facility]edo HospitalComment on above:Performed By: #### CBCA, 06840-2, PINR, 50218-4, 90417- 7, 52788-7, 95520-6, THYR, 86343-8, CMP, 00100-2, 2156- #### [facility] ([id number]) [address] [place] [address] #### HA1C #### [facility] ([id number]) [address] [place] [address], [address] [place], [place] [address]Nred nitrogen [Mass/Vol]21 mg/dLNormal5-27ProGuernsey Memorial HospitalComment on above:Performed By: #### CBCA, 69620-8, PINR, 75259-4, 80387- 7, 91623-0, 43209-8, THYR, 71063-9, CMP, 97224-7, 2156- #### [facility] ([id number]) [address] [place] [address] #### HA1C #### [facility] ([id number]) [address] [place] [address], [address] [place], [place] [address]Ccxoiwu Glucometer (BldC) [Mass/Vol]on 01-65-8534Tfkdgbq [Mass/Vol]155 mg/yATytk75-73UtvNqenzkGuernsey Memorial HospitalGlucose [Mass/Vol]238 mg/dL Plvv34-75LjzUbqzmc Stiles HospitalGlucose [Mass/Vol]413 mg/dLCritically high 65-99Van [facility] County HospitalGlucose [Mass/Vol]218 mg/jKUaqy70-84BbuUvelvsVan Wert County HospitalHeparin unfractionated Chromogenic method Qn (PPP)on 01-22-2024 ANTI XA UFH0.28 IU/mLLow0.30-0.70Van [facility]ert County HospitalComment on above: Result Comment: Optimal time for testing is 6 hrs post dosage This test is specific for monitoring patients on UFH, and is not recommended for use with other Anti-Xa medications.Performed By: #### CBCA, 92565-3, PINR, 95325-2, 02058-0, 66941-1, 89485-6, THYR, 25166-2, CMP, 68443-8, 2156-6 #### [facility] ([id number]) [address] [place] [address] #### HA1C #### [facility] ([id number]) [address] [place] [address], [address] [address]MHHS XA UFH0.24 IU/mLLow0.30-0.70[facility] Comment on above:Result Comment: Optimal time for testing is 6 hrs post dosage This test is specific for monitoring patients on UFH, and is not recommended for use with other Anti-Xa medications.Performed By: #### CBCA, 68092-5, PINR, 59388-3, 85442-3, 58024-5, 35801-3, THYR, 19345-8, CMP, 68421-2, 2156-6 #### [facility] ([id number]) [address] [place] [address] #### HA1C #### [facility] ([id number]) [address] [place] [address], [address] [place] [address]WKEA XA UFH0.23 IU/mLLow0.30-0.70[facility] Comment on above:Result Comment: Optimal time for testing is 6 hrs post dosage This test is specific for monitoring patients on UFH, and is not recommended for use with other Anti-Xa medications.Performed By: #### DARRELLA, 87757-1, PINR, 02725-5, 41177-3, 69755-1, 03743-7, THYR, 44776-4, CMP, 96013-1, 2157-6 #### [facility] ([id number]) [address] [place] [address] #### HA1C #### [facility] ([id number]) [address] [place] [address], [address] [place], [place] [address]Mvcwd 1996 panelon 79-91-4980Oofwkofkhpk [Mass/Vol]97 mg/dLLow 150-200ProGuernsey Memorial HospitalComment on above:Performed By: #### WILLIAM, 48670- 5, PINR, 73090-4, 38941-4, 68189-5, 63231-5, THYR, 99386-3, CMP, 80175-9, 2156- #### [facility] ([id number]) [address] [place] [address] #### HA1C #### [facility] ([id number]) [address] [place] [address], [address] [place], [place] [address]Cnymqdeotvb in HDL [Mass/Vol]50 mg/dLNormal>39ProGuernsey Memorial HospitalComment on above:Result Comment: HDL <40 mg/dL - High Risk HDL > or = 40mg/dL- Desirable HDL >60 mg/dL - Negative Risk Performed By: #### DARRELLA, 80827-5, PINR, 28164-2, 19664-1, 65702-7, 29620-9, THYR, 52952-5, CMP, 71626-4, 7-6 #### [facility] ([id number]) [address] [place] [address] #### HA1C #### [facility] ([id number]) [address] [place] [address], [address] [place], [place] [address]Utusyqvsdea in LDL [Mass/Vol]39 mg/dLNormal<130ProGuernsey Memorial HospitalComment on above:Result Comment: LDL <100 mg/dL - Desirable LDL >160 mg/dL - High Risk Performed By: #### WILLIAM, 23945-8, PINR, 92159-9, 28399-5, 60838-7, 70561-2, THYR, 93409-4, CMP, 90780-0, 7-6 #### [facility] ([id number]) [address] [place] [address] #### HA1C #### [facility] ([id number]) [address] [place] [address], [address] [place], [place] [address]Lepxpnjrnsb in VLDL [Mass/Vol]8 mg/dLNormal0-30ProGuernsey Memorial HospitalComment on above:Performed By: #### WILLIAM, 53109-5, PINR, 15515-6, 50472- 7, 96275-3, 39960-2, THYR, 44940-5, CMP, 37992-2, 2157-6 #### [facility] ([id number]) [address] [place] [address] #### HA1C #### [facility] ([id number]) [address] [place] [address], [address] [place], [place] [address]MIPTUWQFPUX:HDL1.2Axzuub3.0-5.0ProGuernsey Memorial HospitalComment on above:Performed By: #### WILLIAM, 07398-4, PINR, 15162-0, 98629-5, 52059-3, 41965-9, THYR, 06977-7, CMP, 83023-7, 2157-6 #### [facility] ([id number]) [address] [place] [address] #### HA1C #### [facility] ([id number]) [address], [address] [place], [place] [address]Xktunlywzlhr [Mass/Vol]38 mg/eOQililr77-675CwcKnfemm Lovell HospitalComment on above:Performed By: #### CBCA, 57899-6, PINR, 95525-6, 41150- 7, 47169-4, 72348-1, THYR, 04165-1, CMP, 52200-9, 2156-6 #### [facility] ([id number]) [address] [place] [address] #### HA1C #### [facility] ([id number]) [address], [address] [place], [place] [address]EUASVPZWVlv 46-01-9092Lbzqsjggs [Mass/Vol]2.0 mg/dLNormal1.8-2.6 Pro[facility]ica Lovell HospitalComment on above:Performed By: #### CBCA, 97400-5, PINR, 02868-0, 56810-2, 19407-5, 38011-2, THYR, 46460-4, CMP, 28186-7, 2156-6 #### [facility] ([id number]) [address] [place] [address] #### HA1C #### [facility] ([id number]) [address] [facility], [address] [place], [place] [address]Zyfdbqdes [Mass/Vol]2.2 mg/dLNormal1.8-2.6ProMedica Lovell HospitalComment on above:Performed By: #### CBCA, 38619-6, PINR, 27646-2, 24000- 7, 66920-1, 85381-5, THYR, 31087-9, CMP, 91105-6, 7-6 #### [facility] ([id number]) [address] [place] [address] #### HA1C #### [facility] ([id number]) [address] [place] [address], [address] [place] [address]Suagymikbyboo [place] [Mass/Vol]on 86-91-8515WEFINZXCFACNV3.08 ng/mL High<0.05ProGuernsey Memorial HospitalComment on above:Result Comment: NOTE <0.50 ng/mL - Low risk of severe sepsis and/or septic shock. <2.00 ng/mL - Recommend retesting within 6-24 hours. >2.00 ng/mL - High risk of sepsis and/or septic shock.Performed By: #### CBCA, 70681-8, PINR, 86528-5, 01712-1, 47833-0, 35582-1, THYR, 93282-1, CMP, 21232-0, 2156-6 #### [facility] ([id number]) [address] [place] [address] #### HA1C #### [facility] ([id number]) [address] [place] [address], [address] [address]Yjaqbnic I.cardiac High sensitivity method [Mass/Vol]on 43 HOUR TROP I, HIGH SARMQFUFUWS87 ng/LHigh<21Pro[facility] Comment on above:Result Comment: Elevations of hs-Troponin may be due to causes other than myocardial ischemia. Recommend serial hs-Troponin testing be performed. For the initial evaluation and management of chest pain patients, refer to the algorithms linked below. Emergency Patient: [email or web address] Inpatient: [email or web address] By: #### CBCA, 66610-7, PINR, 61734-8, 46736-6, 19861-0, 82956-8, THYR, 46339- 1, CMP, 66879-1, 2157-6 #### [facility] ([id number]) [address] [place] [address] #### HA1C #### [facility] ([id number]) [address], [address] [place], [place] [address] HOUR TROP I, HIGH BIVIICMUNGZ96 ng/LHigh<21[facility] Children'S HospitalComment on above:Result Comment: Elevations of hs-Troponin may be due to causes other than myocardial ischemia. Recommend serial hs-Troponin testing be performed. For the initial evaluation and management of chest pain patients, refer to the algorithms linked below. Emergency Patient: [email or web address] Inpatient: [email or web address] By: #### CBCA, 37469-7, PINR, 22321-2, 40094-1, 38495-7, 74452-8, THYR, 10492- 1, CMP, 84208-0, 2157-6 #### [facility] ([id number]) [address] [place] [address] #### HA1C #### [facility] ([id number]) [address], [address] [place], [place] [address]AU WRIST LT MIN 3 VWSon 34-15-6590FY WRIST LT MIN 3 VWSXR WRIST LT [...] Liam Cody MD on 01/22/2024 10:33 PMNormalProMedica Lovell HospitalBLOOD CULTUREon 26-78-7615Bgiptwvd identified Aer cx Nom (Bld)CULTURE RESULTS NO GROWTH 5 DAYSNormalProGuernsey Memorial HospitalBacteria identified Aer cx Nom (Bld)CULTURE RESULTS NO GROWTH 5 DAYSNormalProGuernsey Memorial HospitalCBC AND AUTO DIFFon 01-21-2024 ABSOLUTE BASOPHIL0.1 X10E9/LNormal0.0-0.2Pro[facility] Children'S HospitalComment on above:Performed By: #### CBCA, 36297-1, PINR, 49345-7, 99174-7, 55564-5, 03570- 4, THYR, 75452-7, CMP, 97709-9, 2157-6 #### [facility] ([id number]) [address] [place] [address] #### HA1C #### [facility] ([id number]) [address] [place] [address], [address] [place] [address]NKIZKGWS NEUTROPHIL7.7 X10E9/LHigh1.5-6.6ProMediUniversity Hospitals Samaritan Medical CenterComment on above:Performed By: #### CBCA, 02486-7, PINR, 61389-6, 18156- 7, 80068-4, 33489-8, THYR, 62809-3, CMP, 03234-5, 2157-6 #### [facility] ([id number]) [address] [place] [address] #### HA1C #### [facility] ([id number]) [address] [place] [address], [address] [place], [place] [address]Sjwtzjgqesyz Ql (Bld)2+AbnormalNONEPShelby Memorial Hospital Comment on above:Performed By: #### CBCA, 90965-2, PINR, 34092-6, 26442-5, 13829-9, 04198-1, THYR, 00981-6, CMP, 47966-5, 2157-6 #### [facility] ([id number]) [address] [place] [address] #### HA1C #### [facility] ([id number]) [address] [facility], [address] [place], [place] [address]Cdjnggwzj/100 WBC (Bld)0.8 %NormalProGuernsey Memorial Hospital Comment on above:Performed By: #### CBCA, 33703-8, PINR, 02007-5, 70824-6, 58799-5, 30768-8, THYR, 39105-0, CMP, 55655-2, 2157-6 #### [facility] ([id number]) [address] [place] [address] #### HA1C #### [facility] ([id number]) [address] [facility], [address] [place], [place] [address]OLTG1+AbnormalNONEPCleveland Clinic Lutheran Hospital HospitalComment on above: Performed By: #### CBCA, 52540-6, PINR, 98173-2, 87489-7, 57989-7, 84030-0, THYR, 23584-7, CMP, 00802-2, 2157-6 #### [facility] ([id number]) [address] [place], [place] [address] #### HA1C #### [facility] ([id number]) [address] [facility], [address] [place], [place] [address]Vhelokqattd (Bld) [#/Vol]0.1 10*3/uLNormal0.0-0.4ProGuernsey Memorial HospitalComment on above:Performed By: #### CBCA, 28843-5, PINR, 14996-5, 29274-2, 06863-2, 40227-1, THYR, 22459-2, CMP, 32650-2, 7-6 #### [facility] ([id number]) [address] [place] [address] #### HA1C #### [facility] ([id number]) [address], [address] [place], [place] [address]Uycxkrclxgb/100 WBC (Bld)0.7 %NormalProMedica Dayton Children'S Hospital Comment on above:Performed By: #### CBCA, 85344-1, PINR, 15428-4, 82548-1, 59845-4, 25208-7, THYR, 70792-3, CMP, 12730-3, 2156-6 #### [facility] ([id number]) [address] [place] [address] #### HA1C #### [facility] ([id number]) [address], [address] [place], [place] [address]Jnatgjwasvt distribution width (RBC) [Ratio]19.9 %High11.5-15.0 [facility] Children'S HospitalComment on above:Performed By: #### CBCA, 92875-3, PINR, 80736-1, 01295-7, 18005-1, 66065-6, THYR, 96354-8, CMP, 12524-3, 2156-6 #### [facility] ([id number]) [address] [place] [address] #### HA1C #### [facility] ([id number]) [address] [place] [address], [address] [place], [place] [address]FXXKAHMN1+AbnormalNONEProMedica Dayton Children'S HospitalComment on above: Performed By: #### CBCA, 05328-0, PINR, 76553-3, 94393-1, 00042-6, 75918-2, THYR, 64895-6, CMP, 83286-7, 2157-6 #### [facility] ([id number]) [address] [place] [address] #### HA1C #### [facility] ([id number]) [address], [address] [place], [place] [address]Lkrzhtbgkd (Bld) [Volume fraction]31.3 %Okx62-33OiiIgxwjj [facility] HospitalComment on above:Performed By: #### CBCA, 55949-0, PINR, 94841-9, 35163- 7, 21368-8, 89928-5, THYR, 99176-6, CMP, 17838-3, 2156-6 #### [facility] ([id number]) [address] [place] [address] #### HA1C #### [facility] ([id number]) [address], [address] [place], [place] [address]Jaivkplgwi (Bld) [Mass/Vol]10.5 g/dLLow13.0-17.0ProBerger Hospital HospitalComment on above:Performed By: #### CBCA, 84883-9, PINR, 72881-0, 85599-6, 25538-6, 94759-6, THYR, 29557-5, CMP, 33274-1, 2156- #### [facility] ([id number]) [address] [place] [address] #### HA1C #### [facility] ([id number]) [address], [address] [place], [place] [address]WABLPHBGFLL4+AbnormalNONEProMedica Lovell HospitalComment on above:Performed By: #### CBCA, 49259-0, PINR, 48526-1, 00902-5, 08817-5, 37344- 4, THYR, 60836-4, CMP, 02516-7, 2156- #### [facility] ([id number]) [address] [place] [address] #### HA1C #### [facility] ([id number]) [address] [place] [address], [address] [place], [place] [address]Vqnwvqzptmc (Bld) [#/Vol]1.2 10*3/uLNormal1.0-3.5Pro[facility] Children'S HospitalComment on above:Performed By: #### CBCA, 64033-9, PINR, 73217-7, 64702-0, 40677-9, 39928-1, THYR, 39942-5, CMP, 90707-7, 2157-6 #### [facility] ([id number]) [address] [place] [address] #### HA1C #### [facility] ([id number]) [address] [place] [address], [address] [place], [place] [address]Ovgsiifkemg/100 WBC (Bld)11.9 %NormalVan Wert County Hospital Comment on above:Performed By: #### CBCA, 30538-0, PINR, 58943-0, 14775-1, 81845-0, 16895-0, THYR, 08087-0, CMP, 48420-3, 2157-6 #### [facility] ([id number]) [address] [place] [address] #### HA1C #### [facility] ([id number]) [address] [place] [address], [address] [place], [place] [address]ZGE (RBC) [Entitic mass]24.8 vyEsf05-25JxoDynerqVan Wert County Hospital Comment on above:Performed By: #### CBCA, 44951-0, PINR, 54278-6, 37334-8, 30677-4, 04929-2, THYR, 79576-0, CMP, 57073-1, 2157-6 #### [facility] ([id number]) [address] [place] [address] #### HA1C #### [facility] ([id number]) [address], [address] [place], [place] [address]BYUH (RBC) [Mass/Vol]33.6 g/hWUbnaus42-96VvnZeayyr [facility] HospitalComment on above:Performed By: #### CBCA, 61553-5, PINR, 51399-0, 66145- 7, 71646-7, 61178-5, THYR, 50092-0, CMP, 80389-9, 2157-6 #### [facility] ([id number]) [address] [place] [address] #### HA1C #### [facility] ([id number]) [address], [address] [place], [place] [address]XSL (RBC) [Entitic vol]74 mWFpi35-101CxmAizeri [facility] Comment on above:Performed By: #### CBCA, 09844-7, PINR, 20633-8, 30099-6, 46073-1, 08951-1, THYR, 07853-7, CMP, 75414-4, 2157-6 #### [facility] ([id number]) [address] [place] [address] #### HA1C #### [facility] ([id number]) [address], [address] [place], [place] [address]Dvoboyqrb (Bld) [#/Vol]1.2 10*3/uLHigh0-0.9ProGuernsey Memorial HospitalComment on above:Performed By: #### CBCA, 31005-5, PINR, 26696-8, 43772- 7, 96873-5, 49553-8, THYR, 24440-5, CMP, 18077-4, 2157-6 #### [facility] ([id number]) [address] [place] [address] #### HA1C #### [facility] ([id number]) [address], [address] [place], [place] [address]Soxbhdjpt/100 WBC (Bld)12.0 %[facility] Comment on above:Performed By: #### CBCA, 38314-9, PINR, 52471-2, 61169-2, 98748-6, 48368-3, THYR, 30753-0, CMP, 00496-1, 2157-6 #### [facility] ([id number]) [address] [place] [address] #### HA1C #### [facility] ([id number]) [address] [facility], [address] [place], [place] [address]Roarkitfcas/100 WBC (Bld)74.6 %[facility] Comment on above:Performed By: #### CBCA, 04880-6, PINR, 34835-9, 66853-3, 71701-8, 67104-4, THYR, 21694-5, CMP, 89822-2, 7-6 #### [facility] ([id number]) [address] [place] [address] #### HA1C #### [facility] ([id number]) [address] [facility], [address] [place], [place] [address]Bocrlwum mean volume (Bld) [Entitic vol]10.1 fLNormal7-12 ProMMcKitrick HospitalComment on above:Performed By: #### CBCA, 99755-1, PINR, 10240-6, 74663-6, 05630-3, 40713-5, THYR, 98893-6, CMP, 00524-3, 7-6 #### [facility] ([id number]) [address] [place] [address] #### HA1C #### [facility] ([id number]) [address], [address] [place], [place] [address]Oniaeuxat (Bld) [#/Vol]252 10*3/bFAqtynt395-303GgaNfkjvm Lovell HospitalComment on above:Performed By: #### CBCA, 72894-7, PINR, 30867-5, 70530- 7, 98385-1, 31096-0, THYR, 59305-8, CMP, 06727-8, 2157-6 #### [facility] ([id number]) [address] [place] [address] #### HA1C #### [facility] ([id number]) [address] [facility], [address] [place], [place] [address]TRWHCQOUJMODM2+AbnormalNONEProMedica Lovell HospitalComment on above:Performed By: #### CBCA, 57633-2, PINR, 33199-2, 20175-6, 80161-9, 00573- 4, THYR, 38296-0, CMP, 29494-3, 7-6 #### [facility] ([id number]) [address] [place] [address] #### HA1C #### [facility] ([id number]) [address] [place] [address], [address] [place], [place] [address]OCX COUNT4.24 X10E12/LNormal4.10-5.70[facility] Comment on above:Performed By: #### CBCA, 89245-8, PINR, 06654-8, 65791-1, 24919-5, 19588-2, THYR, 19031-3, CMP, 11828-0, 2157-6 #### [facility] ([id number]) [address] [place] [address] #### HA1C #### [facility] ([id number]) [address] [place] [address], [address] [place], [place] [address]GFDTSR8+AbnormalNONEProMedica Lovell HospitalComment on above: Performed By: #### CBCA, 00958-3, PINR, 46383-1, 18473-5, 06498-0, 28959-5, THYR, 42647-2, CMP, 95158-7, 2157-6 #### [facility] ([id number]) [facility] [address] [place] [address] #### HA1C #### [facility] ([id number]) [address] [facility], [address] [place], [place] [address]WFP (Bld) [#/Vol]10.3 10*3/uLNormal4.0-11.0ProMedica Stiles HospitalComment on above:Performed By: #### CBCA, 89766-5, PINR, 46939-8, 76462- 7, 06732-3, 32186-4, THYR, 63791-1, CMP, 06786-0, 2157-6 #### [facility] ([id number]) [address] [place] [address] #### HA1C #### [facility] ([id number]) [address] [facility], [address] [place], [place] [address]KE [Catalytic activity/Vol]on 91-47-1578UQX7361 U/YZrxd45-941 [facility] Lovell HospitalComment on above:Performed By: #### CBCA, 25117-9, PINR, 86856-4, 89581-8, 25451-5, 44962-2, THYR, 86190-5, CMP, 38021-2, 2157-6 #### [facility] ([id number]) [address] [place] [address] #### HA1C #### [facility] ([id number]) [address] [place] [address], [address] [place], [place] [address]YJR[address] U/UAkxj04-827QtkZyetpy Stiles HospitalComment on above: Performed By: #### CBCA, 54010-5, PINR, 11351-6, 13972-1, 02769-8, 77269-1, THYR, 54747-6, CMP, 36241-1, 2157-6 #### [facility] ([id number]) [address] [place] [address] #### HA1C #### [facility] ([id number]) [address] [place] [address], [address] [place], [place] [address]PHEMMKUKPWIMU METABOLIC PANELon 26-51-3156Nvvfxkb [Mass/Vol]3.6 g/dLNormal3.2-5.3ProMedica Lovell HospitalComment on above:Performed By: #### CBCA, 99551-8, PINR, 97873-6, 47396-3, 82614-9, 08175-5, THYR, 49593-4, CMP, 07732-9, 2157-6 #### [facility] ([id number]) [address] [place] [address] #### HA1C #### [facility] ([id number]) [address] [place] [address], [address] [place], [place] [address]LYT [Catalytic activity/Vol]118 U/TWeapdc37-535NgvRvfsll Toledo HospitalComment on above:Performed By: #### CBCA, 76984-2, PINR, 54579-5, 53656- 7, 95656-9, 46066-6, THYR, 63803-5, CMP, 86128-5, 2157-6 #### [facility] ([id number]) [address] [place] [address] #### HA1C #### [facility] ([id number]) [address] [place] [address], [address] [place], [place] [address]AFK [Catalytic activity/Vol]26 U/LNormal0-40ProMediMer[facility] Hospital HospitalComment on above:Performed By: #### CBCA, 52603-1, PINR, 93130-8, 87219- 7, 22335-7, 59111-9, THYR, 27308-0, CMP, 97617-5, 2157-6 #### [facility] ([id number]) [address] [place] [address] #### HA1C #### [facility] ([id number]) [address] [place] [address], [address] [place], [place] [address]Fsllm gap [Moles/Vol]9 mmol/LNormal5-15[facility] Comment on above:Performed By: #### CBCA, 47989-3, PINR, 16576-8, 82281-8, 03885-0, 98346-6, THYR, 39896-2, CMP, 97433-2, 2156-12 #### [facility] ([id number]) [address] [place] [address] #### EVERARDO1C #### [facility] ([id number]) [address] [place] [address], [address] [place], [place] [address]WKJ [Catalytic activity/Vol]62 U/LHigh0-41ProGu[facility]sey Memorial HospitalComment on above:Performed By: #### CBCA, 14441-2, PINR, 76904-2, 99187- 7, 75754-3, 06751-1, THYR, 80712-0, CMP, 12176-1, 2156-12 #### [facility] ([id number]) [address] [place] [address] #### HA1C #### [facility] ([id number]) [address] [place] [address], [address] [place], [place] [address]Agrrksgfk [Mass/Vol]0.6 mg/dLNormal0.3-1.2Pro[facility] Children'S HospitalComment on above:Performed By: #### CBCA, 77311-1, PINR, 58527-4, 26922- 7, 49562-9, 96803-9, THYR, 63153-6, CMP, 52296-4, 2156- #### [facility] ([id number]) [address] [place], [place] [address] #### HA1C #### [facility] ([id number]) [address], [address] [place], [place] [address]Ntkcxfk [Mass/Vol]8.3 mg/dLLow8.5-10.5PShelby Memorial Hospital Comment on above:Performed By: #### CBCA, 77664-8, PINR, 25457-8, 27142-0, 91052-9, 90450-2, THYR, 98306-4, CMP, 11900-2, 2157-6 #### [facility] ([id number]) [address] [place] [address] #### HA1C #### [facility] ([id number]) [address], [address] [place], [place] [address]Zwyhflrk [Moles/Vol]102 mmol/FOiqzrf36-314SqzDhntsj [facility] Children'S HospitalComment on above:Performed By: #### CBCA, 26112-2, PINR, 72010-1, 19222- 7, 73916-5, 56672-4, THYR, 25141-1, CMP, 07553-1, 2156-6 #### [facility] ([id number]) [address] [place] [address] #### HA1C #### [facility] ([id number]) [address], [address] [place], [place] [address]SX0 [Moles/Vol]22 mmol/DRtclko18-14ByrZfcstiShelby Memorial Hospital Comment on above:Performed By: #### CBCA, 66555-3, PINR, 40652-5, 84658-6, 90497-6, 80225-2, THYR, 10176-5, CMP, 32560-1, 2156-6 #### [facility] ([id number]) [address] [place] [address] #### HA1C #### [facility] ([id number]) [address], [address] [place], [place] [address]Chpbykjrin [Mass/Vol]0.83 mg/dLNormal0.60-1.30ProGuernsey Memorial HospitalComment on above:Result Comment: METHOD TRACEABLE TO IDMS STANDARD Performed By: #### WILLIAM, 30020-5, PINR, 68269-1, 56648-5, 22158-9, 44780-2, THYR, 43821-1, CMP, 03512-1, 7-6 #### [facility] ([id number]) [address] [place] [address] #### HA1C #### [facility] ([id number]) [address] [place] [address], [address] [address]WPA/1.73 sq M.predicted among non-blacks MDRD (S/P/Bld) [Vol rate/Area]85 mL/min/{1.73_m2}Normal>59ProGuernsey Memorial HospitalComment on above: Result Comment: Reported eGFR is based on the CKD-EPI 2020 equation that does not use a race coefficient.Performed By: #### WILLIAM, 65500-3, PINR, 95505-3, 01154-0, 91896-8, 70846-9, THYR, 19902-8, CMP, 56216-1, 2156-6 #### [facility] ([id number]) [address] [place] [address] #### HA1C #### [facility] ([id number]) [address] [place] [address], [address] [place], [place] [address]Rhyjwml [Mass/Vol]270 mg/cFScsk54-43XdaJozczyVan Wert County Hospital Comment on above:Performed By: #### DARRELLA, 65089-4, PINR, 62429-6, 56796-4, 84826-1, 16833-5, THYR, 84366-9, CMP, 55532-9, 2156-6 #### [facility] ([id number]) [address] [place] [address] #### HA1C #### [facility] ([id number]) [address] [facility], [address] [place], [place] [address]Hhajrsquo [Moles/Vol]4.5 mmol/LNormal3.5-5.0[facility] HospitalComment on above:Performed By: #### CBCA, 07285-9, PINR, 62765-6, 95889- 7, 21108-6, 53721-2, THYR, 12579-3, CMP, 50839-0, 2156-6 #### [facility] ([id number]) [address] [place] [address] #### HA1C #### [facility] ([id number]) [address] [place] [address], [address] [place], [place] [address]Rzkvmal [Mass/Vol]6.4 g/dLNormal6.0-8.0[facility] Comment on above:Performed By: #### CBCA, 89749-3, PINR, 24827-0, 39060-1, 15157-5, 74662-3, THYR, 68007-3, CMP, 41219-4, 2156- #### [facility] ([id number]) [address] [place] [address] #### HA1C #### [facility] ([id number]) [address] [place] [address], [address] [place], [place] [address]Cgazgu [Moles/Vol]133 mmol/XUdk322-896BrdUchdkxGuernsey Memorial Hospital Comment on above:Performed By: #### CBCA, 62970-1, PINR, 18778-2, 95492-1, 21963-7, 94724-1, THYR, 30891-3, CMP, 75458-0, 2156- #### [facility] ([id number]) [address] [place] [address] #### HA1C #### [facility] ([id number]) [address], [address] [place], [place] [address]Ffec nitrogen [Mass/Vol]23 mg/dLNormal5-27ProGuernsey Memorial HospitalComment on above:Performed By: #### CBCA, 82639-9, PINR, 92013-5, 56047- 7, 61399-8, 45244-9, THYR, 23747-0, CMP, 26480-7, 2157-6 #### [facility] ([id number]) [address] [place] [address] #### HA1C #### [facility] ([id number]) [address], [address] [place], [place] [address]KR CTA CHESTon 33-85-6301AJ CTA CHESTCT CTA CHEST CLINICAL INFORMATION: Pulmonary [...] by Arturo Alvarado MD on 01/21/2024 2:10 PMNormalProGuernsey Memorial HospitalFibrin D-dimer DDU (PPP) [Mass/Vol]on 01-21-2024 XJMSZ0746 ng/mL DDU High<255[facility] HospitalComment on above:Result Comment: Results >=255ng/mL DDU: Results may be indicative of the presence of VTE. The use of the Wells score and further diagnostic tests should be considered. Elevated D-Dimer levels can also be associated with DIC, neoplasm, , trauma and liver disease. Elevated levels of rheumatoid factor may lead to an overestimation of the D-Dimer level.Performed By: #### CBCA, 55080-3, PINR, 60430-8, 40938-5, 51770-8, 23001-5, THYR, 45328-4, CMP, 67761-9, 2157-6 #### [facility] ([id number]) [address] [place] [address] #### HA1C #### [facility] ([id number]) [address] [place] [address], [address] [place], [place] [address]Yptnkjt Glucometer (BldC) [Mass/Vol]on 31-59-5003Iotawth [Mass/Vol]305 mg/sTPzet98-54ZvaTdbmxyGuernsey Memorial HospitalGlucose [Mass/Vol]296 mg/dL Brjy12-01OogWtcthlGuernsey Memorial HospitalGlucose [Mass/Vol]266 mg/oKHofn39-50PshIkwhrfGuernsey Memorial HospitalHGB A1C (GLYCO-HGB)on 85-96-5131Khevdyn [Mass/Vol]229 mg/dLNormal [facility] HospitalComment on above:Performed By: #### CBCA, 18545-8, PINR, 87074-7, 46747-0, 24684-2, 63157-2, THYR, 20279-2, CMP, 62701-6, 2157-6 #### [facility] ([id number]) [address] [place] [address] #### HA1C #### [facility] ([id number]) [address] [place] [address], [address] [place], [place] [address]RhD8i (Bld) [Mass fraction]9.6 %High4.4-5.6Van [facility] County HospitalComment on above:Result Comment: NOTE ADA Guidelines Result HgbA1c Normal : less than 5.7 % Prediabetes : 5.7 % to 6.4 % Diabetes : > 6.4 % Use with caution in patients with abnormal hemoglobin variants as the half-life of red blood cells and in vivo glycation rates are affected.Performed By: #### CBCA, 79966-5, PINR, 05417-7, 56802-5, 99262-3, 40325-9, THYR, 21798-7, CMP, 84678-4, 7-6 #### [facility] ([id number]) [address] [place] [address] #### HA1C #### [facility] ([id number]) [address] [place] [address], [address] [place] [address]Ixsjmpq unfractionated Chromogenic method Qn (PPP)on 01-21-2024 ANTI XA UFH0.22 IU/mLLow0.30-0.70[facility] HospitalComment on above: Result Comment: Optimal time for testing is 6 hrs post dosage This test is specific for monitoring patients on UFH, and is not recommended for use with other Anti-Xa medications.Performed By: #### CBCA, 74166-1, PINR, 99451-0, 26722-8, 90059-9, 56395-8, THYR, 36851-5, CMP, 98441-1, 2156- #### [facility] ([id number]) [address] [place] [address] #### HA1C #### [facility] ([id number]) [address] [place] [address], [address] [place], [place] [address]COPP XA UFH0.19 IU/mLLow0.30-0.70[facility] Comment on above:Result Comment: Optimal time for testing is 6 hrs post dosage This test is specific for monitoring patients on UFH, and is not recommended for use with other Anti-Xa medications.Performed By: #### CBCA, 93049-0, PINR, 24045-1, 75617-1, 06499-6, 33048-8, THYR, 75860-6, CMP, 77462-2, 2156-6 #### [facility] ([id number]) [address] [place] [address] #### HA1C #### [facility] ([id number]) [address] [place] [address], [address] [place], [place] [address]Vkngusp (P bobo) [Moles/Vol]on 75-73-2093XBNZLJT W/REFLEX1.2 mmol/LNormal0.4-2.0ProMedica Lovell HospitalComment on above:Result Comment: Result did not trigger repeat Lactate, re-order if needed.Performed By: #### WILLIAM, 32486-7, PINR, 42416-7, 77398-9, 73576-6, 66761-5, THYR, 36960-1, CMP, 45464-1, 2156-6 #### [facility] ([id number]) [address] [place] [address] #### HA1C #### [facility] ([id number]) [address] [place] [address], [address] [place], [place] [address]ZEXZMPYICtk 29-16-7433Rhhcotdmi [Mass/Vol]1.6 mg/dLLow1.8-2.6 [facility]'S HospitalComment on above:Performed By: #### WILLIAM, 29167-2, PINR, 53058-6, 47076-9, 56655-5, 04929-9, THYR, 66764-7, CMP, 32800-4, 2156-6 #### [facility] ([id number]) [address] [place] [address] #### HA1C #### [facility] ([id number]) [address] [place] [address], [address] [place], [place] [address]Ghattywxpfe peptide B [Mass/Vol]on 06-20-8742Ivlnnuldewa peptide B (Bld) [Mass/Vol]1320 pg/mLHigh<100.0ProMedica Lovell HospitalComment on above:Performed By: #### WILLIAM, 40094-9, PINR, 81560-6, 85189-4, 13176-2, 14397- 4, THYR, 21871-7, CMP, 71456-7, 2157-6 #### [facility] ([id number]) [facility] [address] [place] [address] #### HA1C #### [facility] ([id number]) [address] [facility] [facility], [address] [place], [place] [address]PYKQVOV AND INRon 55-02-6055WCQ Coag (PPP) [Relative time]1.2 {INR}High0.8-1.1PShelby Memorial HospitalComment on above:Performed By: #### CBCA, 03022-8, PINR, 56976-4, 72780-9, 54387-6, 04472-4, THYR, 50551-7, CMP, 56663-0, 2157-6 #### [facility] ([id number]) [address] [place] [address] #### HA1C #### [facility] ([id number]) [address] [facility], [address] [place], [place] [address]IL Coag (PPP) [Time]14.4 sHigh9.8-13.2PShelby Memorial Hospital Comment on above:Performed By: #### CBCA, 36564-3, PINR, 45973-7, 84501-8, 87615-6, 13471-4, THYR, 95161-3, CMP, 45858-4, 2157-6 #### [facility] ([id number]) [address] [place] [address] #### HA1C #### [facility] ([id number]) [address] [facility], [address] [place], [place] [address]Vekcyriramikp IA [Mass/Vol]on 30-93-7547DATFASAGRXXBF1.06 ng/mL High<0.05ProGuernsey Memorial HospitalComment on above:Result Comment: NOTE <0.50 ng/mL - Low risk of severe sepsis and/or septic shock. <2.00 ng/mL - Recommend retesting within 6-24 hours. >2.00 ng/mL - High risk of sepsis and/or septic shock.Performed By: #### CBCA, 15496-5, PINR, 73518-5, 73931-2, 72805-0, 62379-3, THYR, 08303-2, CMP, 47334-7, 2157-6 #### [facility] ([id number]) [address] [place] [address] #### HA1C #### [facility] ([id number]) [address] [place] [address], [address] [place], [place] [address]KZVT PATHOGENS/FYHI-XwL-4gc 51-64-4625Eyvmdyyogky pathogens DNA and RNA panel ANASTASIA+non-probe (Nph)SPECIMEN [...] 2 Not detected (qualifier value) NOTE The [employer] Respiratory Panel 2.1 (RP2.1) is a multiplexed [...] other pathogens. The agent(s) detected by the [facility] RP2.1 may not be the definite cause [...] evaluating a patient with possible respiratory tract infection.NormalProGuernsey Memorial HospitalComment on above:Performed By: #### CBCA, 50281-1, PINR, 63252-5, 57003- 7, 04482-3, 91506-0, THYR, 49167-9, CMP, 62188-5, 2157-6 #### [facility] ([id number]) [address] [place] [address] #### HA1C #### [facility] ([id number]) [address] [place] [address], [address] [place], [place] [address]PCLPIUQ PROFILEon 16-41-0547Rrue T4 [Mass/Vol]1.04 ng/dLNormal 0.61-1.60ProGuernsey Memorial HospitalComment on above:Performed By: #### CBCA, 99031-2, PINR, 95642-0, 01083-8, 07473-5, 15886-3, THYR, 97721-5, CMP, 92444-4, 2157-6 #### [facility] ([id number]) [address] [place] [address] #### HA1C #### [facility] ([id number]) [address] [facility], [address] [place], [place] [address]LSI7.70 uIU/mLNormal0.49-4.67ProGuernsey Memorial HospitalComment on above:Performed By: #### WILLIAM, 92659-6, PINR, 12185-8, 15057-9, 04558-6, 26479- 4, THYR, 25882-4, CMP, 96092-7, 2157-6 #### [facility] ([id number]) [address] [place] [address] #### HA1C #### [facility] ([id number]) [address] [facility], [address] [place], [place] [address]Frsrtktn I.cardiac High sensitivity method [Mass/Vol]on 69-57-8520LRQNVPYK I, HIGH EULGMUNVUDL335 ng/LHigh<21Pro[facility] Comment on above:Result Comment: Elevations of hs-Troponin may be due to causes other than myocardial ischemia. Recommend serial hs-Troponin testing be performed. For the initial evaluation and management of chest pain patients, refer to the algorithms linked below. Emergency Patient: [email or web address] Inpatient: [email or web address] By: #### CBCA, 90633-6, PINR, 94753-7, 51249-0, 89367-7, 39584-8, THYR, 49542- 1, CMP, 40707-8, 2157-6 #### [facility] ([id number]) [address] [place] [address] #### HA1C #### [facility] ([id number]) [address] [facility], [address] [place], [place] [address] HOUR TROP I, HIGH ACEALUNYHIY321 ng/LHigh<21ProGuernsey Memorial HospitalComment on above:Result Comment: Elevations of hs-Troponin may be due to causes other than myocardial ischemia. Recommend serial hs-Troponin testing be performed. For the initial evaluation and management of chest pain patients, refer to the algorithms linked below. Emergency Patient: [email or web address] Inpatient: [email or web address] By: #### CBCA, 11932-1, PINR, 54966-3, 22778-2, 17520-6, 48793-6, THYR, 05816- 1, CMP, 26789-8, 2157-6 #### [facility] ([id number]) [address] [place] [address] #### HA1C #### [facility] ([id number]) [address] [facility], [address] [place] [address]BH CHEST 1 VWon 35-46-9586QI CHEST 1 VWXR CHEST 1 VW History: Congestion EXAM: Chest AP portable upright COMPARISON: None FINDINGS: Cardiac silhouette within normal limits. Mild interstitial prominence. No pneumothorax. No infiltrate or large pleural effusion. IMPRESSION: Mild interstitial edema Finalized by Mima Eaton MD on 01/21/2024 1:38 PMNormalProGuernsey Memorial HospitalaPTT Coag (PPP) [Time]on 04-13-8818jZMV Coag (Bld) [Time]54 mTquk66-77 [facility] HospitalComment on above:Performed By: #### CBCA, 53470-6, PINR, 45231-4, 38474-3, 99547-5, 98741-6, THYR, 15963-2, CMP, 83135-7, 2157-6 #### [facility] ([id number]) [address] [place] [id number] #### HA1C #### [facility] ([id number]) [address] [place] [address], [address] [place], [place] [address]XG Cervical spine WO contraston 43-10[place] [address] Magnetic Resonance Report Signed Patient: MANOLO ROCHE MR#: [id number] : 1935 Acct:[id number] Age/Sex: 88 / M ADM Date: 12/27/23 Loc: MRI Attending Dr: Non-Staff Physician Mikel Ordering Physician: Jones MortonStaff Mikel Date of Service: 12/27/23 Procedure(s): MR cervical spine wo con Accession Number(s): [id number] cc: Physician,Non-Staff Mikel; MARIE TEEJDA [place] [address] Patient Name: MANOLO ROCHE MRN: [id number] date: 1935 Sex: M Assigned Patient Location: MRI Current Patient Location: Accession/Order Number: [id number] Exam Date: 12/27/2023 09:55 Report Date: 12/28/2023 [...] Guzman M.D. Signed By: 12/28/2336 DD/ TD/TT: Environmental Health Inspector:TBHRadiology, Radiologist, MD - 12/28/2023 [place] [address] Magnetic Resonance Report Signed Patient: MANOLO ROCHE MR#: [id number] : 1935 Acct:[id number] Age/Sex: 88 / M ADM Date: 12/27/23 Loc: MRI Attending Dr: Non-Staff Physician Morin Ordering Physician: Maci Morton M.D. Date of Service: 12/27/23 Procedure(s): MR cervical spine wo con Accession Number(s): [id number] cc: Physician,Non-Staff MBrandon; MARIE TEJEDA [place] [address] Patient Name: MANOLO ROCHE MRN: [id number] date: 1935 Sex: M Assigned Patient Location: MRI Current Patient Location: Accession/Order Number: [id number] Exam Date: 12/27/2023 09:55 Report Date: 12/28/2023 [...] M.D. Signed By: 12/28/23935 DD/ 3 TD/TT: Environmental Health Inspector: NETO [facility] HospitalRadiology Study observation (narrative)[facility] Cervical spine WO contrastOrdered By: Radiologist Radiology on 15-96-1850MT[facility]WLake [facility] Work Phone: Glucose Glucometer (BldC) [Mass/Vol]Ordered By: Alberto Shearer on 34-59-4141Jkkyzgq [Mass/Vol]83 mg/dLGerman Hospital Comment on above:Random Glucose Reference Range is dependent on time and content of last meal. Glucose of more than 200 mg/dL in a nonstressed, ambulatory subject supports the diagnosis of Diabetes Mellitus.No Panel InformationOrdered By: Alberto Shearer on 92-44-9875Awgznoi Glucose CommentGlu2: cleaned [facility] CenterBedside Glucose #2 CommentCleaned [facility] Medical CenterGlucose Glucometer (BldC) [Mass/Vol]Ordered By: Yomi Meeks on 79-39-0564Bzgcqfm [Mass/Vol]71 mg/dLGerman HospitalComment on above:Random Glucose Reference Range is dependent on time and content of last meal. Glucose of more than 200 mg/dL in a nonstressed, ambulatory subject supports the diagnosis of Diabetes Mellitus.Glucose Glucometer (BldC) [Mass/Vol]Ordered By: Vidya Robert on 86-42-0155Qzckbun [Mass/Vol]268 mg/dLGerman HospitalComment on above:Random Glucose Reference Range is dependent on time and content of last meal. Glucose of more than 200 mg/dL in a nonstressed, ambulatory subject supports the diagnosis of Diabetes Mellitus.No Panel InformationOrdered By: Vidya Robert on 83-10-9676Ftiybys Glucose CommentGlu2: cleaned [facility] CenterErythrocyte distribution width Auto (RBC) [Ratio]Ordered By: [employer] on 03-51-3171Wbxopqbkfdq distribution width (RBC) [Ratio]16.7 %12.0-14.8 German HospitalHematocrit Auto (Bld) [Volume fraction]Ordered By: [employer] on 79-07-1139Qmlhvhtgrf (Bld) [Volume fraction]22.7 % 38.8-50.0German HospitalHemoglobin [Mass/volume] in Blood Ordered By: [employer] on 94-14-7564Cwbixzxjvm (Bld) [Mass/Vol]7.8 g/dL 13.0-17.0German HospitalLeukocytes [#/volume] corrected for nucleated erythrocytes in Blood by Automated counOrdered By: [employer] on 55-00-4015EQY corrected for nucl RBC Auto (Bld) [#/Vol]9.4 10*3/uL4.1-10.5 German HospitalMCH Auto (RBC) [Entitic mass]Ordered By: [employer] on 09-59-5210EYH (RBC) [Entitic mass]28.7 pg27.5-35.2FTrinity Health SystemMCHC Auto (RBC) [Mass/Vol]Ordered By: [employer] on 09-05-2023 MCHC (RBC) [Mass/Vol]34.1 g/dL32.5-35.6FTrinity Health SystemMCV Auto (RBC) [Entitic vol]Ordered By: [employer] on 02-69-5231EPY (RBC) [Entitic vol]84.1 fL83.5-101German HospitalPlatelet mean volume Auto (Bld) [Entitic vol]Ordered By: [employer] on 63-43-3119Tiagtffh mean volume (Bld) [Entitic vol]9.8 fL6.6-10.1FTrinity Health SystemPlatelets Auto (Bld) [#/Vol]Ordered By: [employer] on 45-80-1399Pwrprjpdw (Bld) [#/Vol]236 10*3/kB530-800UszsnpbtiGerman HospitalRBC Auto (Bld) [#/Vol]Ordered By: [employer] on 01-19-5180REO (Bld) [#/Vol]2.70 10*6/uL3.90-5.60German HospitalBasophils Auto (Bld) [#/Vol]Ordered By: Jeevan Pinzon on 86-87-8673Jpbvsyfmf (Bld) [#/Vol]0.0 10*3/uL0.0-0.2FTrinity Health SystemBasophils/100 WBC Auto (Bld)Ordered By: Jeevan Pinzon on 09-04-2023 Basophils/100 WBC (Bld)0.4 %.German HospitalEosinophils Auto (Bld) [#/Vol]Ordered By: Jeevan Pinzon on 71-37-2044Yubhcnidykr (Bld) [#/Vol]0.1 10*3/uL0.0-0.45German HospitalEosinophils/100 WBC Auto (Bld) Ordered By: Jeevan Pinzon on 33-16-8894Pmiogwrybwg/100 WBC (Bld)0.8 %.German HospitalLymphocytes Auto (Bld) [#/Vol]Ordered By: Jeevan Pinzon on 75-23-0136Ryqiiqebjox (Bld) [#/Vol]1.3 10*3/uL1.00-4.8German HospitalLymphocytes/100 WBC Auto (Bld)Ordered By: Jeevan Pinzon on 86-42-0085Fdvpktnmnaw/100 WBC (Bld)11.7 %.[facility] Monocytes Auto (Bld) [#/Vol]Ordered By: Jeevan Pinzon on 14-06-6074Jamolubkh (Bld) [#/Vol]1.9 10*3/uL0.0-0.8German HospitalMonocytes/100 WBC Auto (Bld)Ordered By: Jeevan Pinzon on 77-54-3343Jjkcqluou/100 WBC (Bld)17.9 %.German HospitalComment on above:Absolute monocytosis is commonly reactive in nature. However, if unexplained, recommend follow-up CBC in 3 months to evaluate for persistence.Neutrophils Auto (Bld) [#/Vol]Ordered By: Jeevan Pinzon on 40-94-0412Pdjhftcljeo (Bld) [#/Vol]7.4 10*3/uL1.8-7.7FTrinity Health SystemNeutrophils/100 WBC Auto (Bld)Ordered By: Jeevan Pinzon on 53-48-8828Qdwigobmghd/100 WBC (Bld)69.2 %.[facility] Nucleated erythrocytes [Presence] in Blood by Automated countOrdered By: Jeevan Pinzon on 31-76-6919Kbbbudmvn RBC Auto Ql (Bld)0.2 /100{WBC}0-0.5FTrinity Health SystemWBC Auto (Bld) [#/Vol]Ordered By: Jeevan Pinzon on 13-92-3564OZS (Bld) [#/Vol]10.7 10*3/uL4.1-10.5FTrinity Health System No Panel InformationOrdered By: [employer] on 43-98-9187Ghxkaxh Glucose #2 CommentWill repeat testGerman HospitalAcanthocytes [Presence] in Blood by Light microscopyOrdered By: [employer] on 57-09-5159Ektxpfdgwplj LM Ql (Bld)German HospitalAnisocytosis LM Ql (Bld) Ordered By: [employer] on 52-38-6471Tnfpqqlkvpuu Ql (Bld)[facility] EastBand form neutrophils/100 WBC Manual cnt (Bld)Ordered By: [employer] on 76-91-8301Ndhv form neutrophils/100 WBC (Bld)4 %0-5FTrinity Health SystemBurr cells [Presence] in Blood by Light microscopyOrdered By: [employer] on 61-50-2214Aitr cells LM Ql (Bld)German HospitalCalcium [Mass/volume] in Serum or PlasmaOrdered By: [employer] on 98-21-5757Vihsmxg [Mass/Vol]7.7 mg/dL8.6-10.3FTrinity Health SystemCarbon dioxide, total [Moles/volume] in Serum or PlasmaOrdered By: [employer] on 33-79-4339RG9 [Moles/Vol]27.3 mmol/L21.0-31.0German HospitalChloride [Moles/volume] in Serum or PlasmaOrdered By: [employer] on 42-60-7359Doydfick [Moles/Vol]106 mmol/J00-504PlahawjkfGerman HospitalCreatinine [Mass/volume] in Serum or PlasmaOrdered By: [employer] on 61-84-5288Fwofeqvdwd [Mass/Vol]0.81 mg/dL0.70-1.30German HospitalGlucose [Mass/volume] in Serum or PlasmaOrdered By: [employer] on 68-03-8860Pzoobcn [Mass/Vol]79 mg/bI44-254DyjwiienwGerman Hospital Comment on above:ADA recommended reference rangeRandom Glucose Reference Range is dependent on time and content of last meal. Glucose of more than 200 mg/dL in a nonstressed, ambulatory subject supports the diagnosisof Diabetes Mellitus. Hypochromia LM Ql (Bld)Ordered By: [employer] on 74-17-2318Ogamfmtdmbe Ql (Bld)[facility] EastLymphocytes/100 WBC Manual cnt (Bld)Ordered By: [employer] on 39-64-4261Zeeicrskfcw/100 WBC (Bld)9 %18-42 German HospitalMicrocytes LM Ql (Bld)Ordered By: [employer] on 14-33-0497Fjhxoluloq Ql (Bld)[facility] EastMonocytes/100 WBC Manual cnt (Bld)Ordered By: [employer] on 09-01-2023 Monocytes/100 WBC (Bld)7 %2-11German HospitalNo Panel InformationOrdered By: [employer] on 84-15-8854Nkfpbnqmz GFR (CKD-EPI)> 60.0 mL/MinGerman HospitalPharmacy Creatinine Clearance (Chem59.91 German HospitalOvalocyte detectionOrdered By: [employer] on 02-79-3558Tdyknroswm LM Ql (Bld)[facility] Platelet adequacy [Presence] in Blood by Light microscopyOrdered By: [employer] on 88-77-4509Scffdmbhd LM Ql (Bld)DecreasedNormalGerman HospitalPlatelet morphology finding [Identifier] in BloodOrdered By: [employer] on 52-18-1113Bkalcccl morphology finding Nom (Bld)N/[facility] HospitalPlatelets Large [Presence] in Blood by Light microscopy Ordered By: [employer] on 05-86-1722Hsefkypxu Large LM Ql (Bld)[facility] CenterPoikilocytosis [Presence] in Blood by Light microscopyOrdered By: [employer] on 08-34-8028Flblyvhsqucghg LM Ql (Bld) [facility] EastPolychromasia [Presence] in Blood by Light microscopyOrdered By: [employer] on 87-30-7413Sffgctsybpvcz LM Ql (Bld)German HospitalPotassium [Moles/volume] in Serum or PlasmaOrdered By: [employer] on 47-89-0499Usyanvnef [Moles/Vol]3.9 mmol/L 3.5-5.1FTrinity Health SystemRBC morphologyOrdered By: [employer] on 49-42-4079AXN morphology finding Nom (Bld)N/[facility] Hamiltonchistocytes [Presence] in Blood by Light microscopyOrdered By: [employer] on 17-86-5195Ififpivkqaaa LM Ql (Bld)German Hospitalegmented neutrophils/100 WBC Manual cnt (Bld)Ordered By: [employer] on 40-97-0758Bmdgponyz neutrophils/100 WBC (Bld)81 %50-70[facility] Centererum or plasma anion gap determinationOrdered By: [employer] on 11-30-7180Pwzwe gap [Moles/Vol]10.6 mmol/L6.0-15.0[facility] Medical Centerodium [Moles/volume] in Serum or PlasmaOrdered By: [employer] on 99-41-7090Uyoxen [Moles/Vol]140 mmol/B691-730SzttadwegGerman Hospital Target cellsOrdered By: [employer] on 45-36-4725Zlqpzb cells LM Ql (Bld) German HospitalTroponin I.cardiac [Mass/volume] in Serum or Plasma by Detection limit <= 0.01 ng/Ordered By: [employer] on 81-66-4330Gkhdpbxz I.cardiac DL <= 0.01 ng/mL [Mass/Vol]779.8 pg/mL0.0-20.0 German HospitalComment on above:Critical Result : Called to and read back by: EDNA MORALES at: 09/01/2023 06:23:23 by:RGUrea nitrogen [Mass/volume] in Serum or PlasmaOrdered By: [employer] on 63-66-6509Aklx nitrogen [Mass/Vol]37 mg/dL7-25German HospitalActivated partial thromboplastin time (aPTT) in platelet poor plasma by coagulation a Ordered By: Federico Davis on 33-85-9460tUJL Coag (PPP) [Time]30.2 s25.1-36.5 German HospitalComment on above:A hematocrit value greater than 55% may lead to inaccurate results in coagulation testing. Patientshaving hematocrit values >55% require a special collection tube for coagulation studies. Please contact the laboratory at [phone] for redraw instructions. Anisocytosis LM Ql (Bld)Ordered By: Federico Davis on 98-66-9535Fkbygblikzuf Ql (Bld) German HospitalBasophils Auto (Bld) [#/Vol]Ordered By: Federico Davis on 20-83-5581Shixwrpex (Bld) [#/Vol]0.0 10*3/uL0.0-0.2FTrinity Health SystemBasophils/100 WBC Auto (Bld)Ordered By: Federico Davis on 52-02-6296Ykqdlmtow/100 WBC (Bld)0.5 %.German HospitalCarbon dioxide, total [Moles/volume] in Serum or PlasmaOrdered By: Federico Davis on 10-25-3595KO3 [Moles/Vol]26.8 mmol/L21.0-31.0[facility] Chloride [Moles/volume] in Serum or PlasmaOrdered By: Federico Davis on 07-16-2023 Chloride [Moles/Vol]103 mmol/X55-733TokblrxjwGerman HospitalCreatinine [Mass/volume] in Serum or PlasmaOrdered By: Federico Davis on 54-80-4090Jgpskupxoi [Mass/Vol]0.71 mg/dL0.70-1.30German HospitalEosinophils Auto (Bld) [#/Vol]Ordered By: Federico Davis on 20-11-9827Olijyjbuucu (Bld) [#/Vol]0.0 10*3/uL0.0-0.45German HospitalEosinophils/100 WBC Auto (Bld) Ordered By: Federico Davis on 36-89-0822Vfvxobvncza/100 WBC (Bld)0.3 %.German HospitalErythrocyte distribution width Auto (RBC) [Ratio]Ordered By: Federico Davis on 40-53-1995Jibdtbaetjd distribution width (RBC) [Ratio]16.5 % 12.0-14.8German HospitalGlucose Glucometer (BldC) [Mass/Vol] Ordered By: Federico Davis on 35-96-9671Xvaoyqi [Mass/Vol]398 mg/dLGerman HospitalComment on above:Random Glucose Reference Range is dependent on time and content of last meal. Glucose of more than 200 mg/dL in a nonstressed, ambulatory subject supports the diagnosis of Diabetes Mellitus.Hematocrit Auto (Bld) [Volume fraction]Ordered By: Federico Davis on 43-22-6986Rvtfarmprd (Bld) [Volume fraction]33.5 %38.8-50.0German HospitalHemoglobin [Mass/volume] in BloodOrdered By: Federico aDvis on 54-54-0560Heqsjnkner (Bld) [Mass/Vol]11.0 g/dL13.0-17.0German HospitalHypochromia LM Ql (Bld)Ordered By: Federico Davis on 34-86-8111Wlenrflguoh Ql (Bld)MarkedGerman HospitalINR in Platelet poor plasma by Coagulation assayOrdered By: Federico Davis on 07-82-2104QCO Coag (PPP) [Relative time]1.1 {INR}German HospitalComment on above:INR Therapeutic Range A) Pre- [...] by Automated counOrdered By: Federico Davis on 67-66-9145VER corrected for nucl RBC Auto (Bld) [#/Vol]8.4 10*3/uL4.1-10.5 German HospitalLymphocytes Auto (Bld) [#/Vol]Ordered By: Federico Davis on 78-63-9416Cmgnghnlpvp (Bld) [#/Vol]0.7 10*3/uL1.00-4.8German HospitalLymphocytes/100 WBC Auto (Bld)Ordered By: Federico Davis on 33-64-5748Cweoxdhpywv/100 WBC (Bld)8.4 %.[facility] Auto (RBC) [Entitic mass]Ordered By: Federico Davis on 95-88-6664SBH (RBC) [Entitic mass]26.4 pg27.5-35.2FTrinity Health SystemMCHC Auto (RBC) [Mass/Vol] Ordered By: Federico Davis on 68-80-9452AOPU (RBC) [Mass/Vol]32.8 g/dL32.5-35.6 German HospitalMCV Auto (RBC) [Entitic vol]Ordered By: Federico Davis on 43-36-9991NQT (RBC) [Entitic vol]80.4 fL83.5-101German HospitalMacrocytes LM Ql (Bld)Ordered By: Federico Davis on 07-16-2023 Macrocytes Ql (Bld)SlightGerman HospitalMonocytes Auto (Bld) [#/Vol]Ordered By: Federico Davis on 06-74-8422Szvmsxrhy (Bld) [#/Vol]1.3 10*3/uL 0.0-0.8German HospitalMonocytes/100 WBC Auto (Bld)Ordered By: Federico Davis on 58-24-3213Ugxbasltt/100 WBC (Bld)15.1 %.German HospitalNeutrophils Auto (Bld) [#/Vol]Ordered By: Federico Davis on 07-16-2023 Neutrophils (Bld) [#/Vol]6.3 10*3/uL1.8-7.7FTrinity Health System Neutrophils/100 WBC Auto (Bld)Ordered By: Federico Davis on 37-59-8009Saydgzgyovx/100 WBC (Bld)75.7 %.German HospitalNo Panel InformationOrdered By: Federico Davis on 99-18-0879Ipeerga Glucose CommentGlu2: cleaned meterGerman HospitalEstimated GFR (CKD-EPI)> 60.0 mL/MinGerman HospitalPharmacy Creatinine Clearance (ChemN/AFTrinity Health SystemNucleated erythrocytes [Presence] in Blood by Automated countOrdered By: Federico Davis on 78-08-3782Nnccebnqm RBC Auto Ql (Bld)0.1 /100{WBC}0-0.5FTrinity Health SystemPlatelet adequacy [Presence] in Blood by Light microscopy Ordered By: Federico Davis on 87-10-5381Qlsvxsrdx LM Ql (Bld)NormalNormalGerman HospitalPlatelet mean volume Auto (Bld) [Entitic vol]Ordered By: Federico Davis on 81-24-8087Chasfehj mean volume (Bld) [Entitic vol]10.1 fL6.6-10.1 German HospitalPlatelet morphology finding [Identifier] in BloodOrdered By: Federico Davis on 72-98-1710Jpwkjbbi morphology finding Nom (Bld)N/A German HospitalPlatelets Auto (Bld) [#/Vol]Ordered By: Federico Davis on 16-53-7124Ustjxnnau (Bld) [#/Vol]243 10*3/zM333-697DpuyyjrrkGerman HospitalPlatelets Large [Presence] in Blood by Light microscopyOrdered By: Federico Davis on 28-19-4051Gyaomulxp Large LM Ql (Bld)SlightGerman HospitalPoikilocytosis [Presence] in Blood by Light microscopyOrdered By: Federico Davis on 94-30-6197Htsraubaqovhsu LM Ql (Bld)[facility] EastPolychromasia [Presence] in Blood by Light microscopyOrdered By: Federico Davis on 14-89-4211Nljigkiiaeesu LM Ql (Bld)[facility] EastPotassium [Moles/volume] in Serum or PlasmaOrdered By: Federico Davis on 39-43-6425Phfbcqgmu [Moles/Vol]4.2 mmol/L3.5-5.1FTrinity Health SystemProthrombin time (PT)Ordered By: Federico Davis on 47-39-1908VX Coag (PPP) [Time]12.3 s9.0-12.9German HospitalComment on above:A hematocrit value greater than 55% may lead to inaccurate results in coagulation testing. Patientshaving hematocrit values >55% require a special collection tube for coagulation studies. Please contact the laboratory at [phone] for redraw instructions.RBC Auto (Bld) [#/Vol]Ordered By: Federico Davis on 33-74-0473CYO (Bld) [#/Vol]4.17 10*6/uL3.90-5.60German HospitalRBC morphologyOrdered By: Federico Davis on 39-90-0362XKC morphology finding Nom (Bld)N/A [facility] Centerchistocytes [Presence] in Blood by Light microscopyOrdered By: Federico Davis on 05-79-1869Jofnhxogyeyo LM Ql (Bld)Slight [facility] Medical Centererum or plasma anion gap determinationOrdered By: Federico Davis on 75-24-7655Zwjyc gap [Moles/Vol]12.4 mmol/L6.0-15.0[facility] Centerodium [Moles/volume] in Serum or PlasmaOrdered By: Federico Davis on 86-26-5386Sbfxsu [Moles/Vol]138 mmol/D219-596IkkssgnveGerman HospitalTarget cellsOrdered By: Federico Davis on 74-25-9098Qohuup cells LM Ql (Bld)ModerateGerman HospitalUrea nitrogen [Mass/volume] in Serum or PlasmaOrdered By: Federico Davis on 18-16-9157Clad nitrogen [Mass/Vol]16 mg/dL7-25German HospitalWBC Auto (Bld) [#/Vol]Ordered By: Federico Davis on 22-29-0313CMS (Bld) [#/Vol]8.4 10*3/uL4.1-10.5FTrinity Health SystemProgress Noteson 61-13-0790Ywgpaqoulhokt Authentication Interface Message TextEMERGENCY TRIAGE, TREAT AND TRANSPORT (ET3) DOCUMENTATION OF TELEHEALTH VISIT Date / Time: 06/02/2023929 Name: Giovani Roche : 1935 SSN: (Not on file) EMS Agency: [facility] [x] Verbal consent obtained [] [...] Reported: Same ET3 Encounter Completed by: [facility]EC 12 [place] 06-21-8411Ymptkk sinus rhythm, anterolateral ST T wave abnormality, abnormal ECGCPACSWright-Patterson Medical Center Work Phone: Glucose Glucometer (BldC) [Mass/Vol]Ordered By: Fredi Medrano on 09-10-0255Hwfuxuy [Mass/Vol]98 mg/dLGerman HospitalComment on above:Random Glucose Reference Range is dependent on time and content of last meal. Glucose of more than 200 mg/dL in a nonstressed, ambulatory subject supports the diagnosis of Diabetes Mellitus.No Panel InformationOrdered By: Fredi Medrano on 71-48-5514Fodlkci Glucose Comment Glu2: cleaned meterGerman HospitalAlanine aminotransferase [Enzymatic activity/volume] in Serum or PlasmaOrdered By: Fredi Medrano on 43-37-5247BMG [Catalytic activity/Vol]14 U/L7-52German HospitalAlbumin [Mass/volume] in Serum or Plasma by Bromocresol green (BCG) dye binding methoOrdered By: Fredi Medrano on 07-52-5221Ynrxqho BCG dye [Mass/Vol]2.9 g/dL3.5-5.7FTrinity Health SystemAlkaline phosphatase [Enzymatic activity/volume] in Serum or PlasmaOrdered By: Fredi Medrano on 87-30-6693MOH [Catalytic activity/Vol]87 U/H96-929QcsfejexiGerman HospitalAspartate aminotransferase [Enzymatic activity/volume] in Serum or Plasma Ordered By: Fredi Medrano on 00-73-9023UUR [Catalytic activity/Vol]20 U/L 13-39German HospitalBasophils Auto (Bld) [#/Vol]Ordered By: Fredi Medrano on 27-90-3417Gbqkugjwk (Bld) [#/Vol]0.0 10*3/uL0.0-0.2 German HospitalBasophils/100 WBC Auto (Bld)Ordered By: Fredi Medrano on 46-90-1144Puljdozko/100 WBC (Bld)0.7 %.German HospitalBilirubin.total [Mass/volume] in Serum or PlasmaOrdered By: Fredi Medrano on 68-02-3150Guqxnsdnr [Mass/Vol]0.5 mg/dL0.3-1.0 German HospitalCalcium [Mass/volume] in Serum or PlasmaOrdered By: Fredi Medrano on 17-57-9160Kjgcrgf [Mass/Vol]8.0 mg/dL8.6-10.3 German HospitalCarbon dioxide, total [Moles/volume] in Serum or PlasmaOrdered By: Fredi Medrano on 37-32-8754SH2 [Moles/Vol]28.0 mmol/L21.0-31.0German HospitalChloride [Moles/volume] in Serum or PlasmaOrdered By: Fredi Medrano on 55-93-5177Kywzrzdc [Moles/Vol]102 mmol/S85-250OeesjfcehGerman HospitalCreatinine [Mass/volume] in Serum or PlasmaOrdered By: Fredi Medrano on 19-93-5252Kvvnavvedh [Mass/Vol]0.61 mg/dL0.70-1.30German HospitalEosinophils Auto (Bld) [#/Vol] Ordered By: Fredi Medrano on 39-16-4339Urelawzhydj (Bld) [#/Vol]0.1 10*3/uL0.0-0.45German HospitalEosinophils/100 WBC Auto (Bld) Ordered By: Fredi Medrano on 98-60-7604Hduceveoott/100 WBC (Bld)1.5 %. German HospitalErythrocyte distribution width Auto (RBC) [Ratio]Ordered By: Fredi Medrano on 98-52-5310Vkzizeodzgo distribution width (RBC) [Ratio]16.8 %12.0-14.8German HospitalGlobulin Calc (S) [Mass/Vol]Ordered By: Fredi Medrano on 42-64-1638Qacjwecn (S) [Mass/Vol]2.5 g/dLGerman HospitalGlucose [Mass/volume] in Serum or PlasmaOrdered By: Fredi Medrano on 94-22-7681Iwizttp [Mass/Vol] 120 mg/kR78-755IozelezuqGerman HospitalComment on above:ADA recommended reference rangeRandom Glucose Reference Range is dependent on time and content of last meal. Glucose of more than 200 mg/dL in a nonstressed, ambulatory subject supports the diagnosisof Diabetes Mellitus.Hematocrit Auto (Bld) [Volume fraction]Ordered By: Fredi Medrano on 42-96-0184Koagqnftdu (Bld) [Volume fraction]29.3 %38.8-50.0German HospitalHemoglobin [Mass/volume] in BloodOrdered By: Fredi Medrano on 38-70-2744Laecnzxdee (Bld) [Mass/Vol]9.7 g/dL13.0-17.0German HospitalLeukocytes [#/volume] corrected for nucleated erythrocytes in Blood by Automated coun Ordered By: Fredi Medrano on 71-41-6901TFS corrected for nucl RBC Auto (Bld) [#/Vol]7.2 10*3/uL4.1-10.5Fire[facility] Medical CenterLymphocytes Auto (Bld) [#/Vol]Ordered By: Fredi Medrano on 74-83-7900Wefwptwuqen (Bld) [#/Vol]1.6 10*3/uL1.00-4.8German HospitalLymphocytes/100 WBC Auto (Bld)Ordered By: Fredi Medrano on 80-39-7604Wkqqfwwvkyn/100 WBC (Bld)23.0 %.[facility] (RBC) [Entitic mass] Ordered By: Fredi Medrano on 97-74-2505ZNK (RBC) [Entitic mass]27.9 pg 27.5-35.2FTrinity Health SystemMCHC Auto (RBC) [Mass/Vol]Ordered By: Fredi Medrano on 01-06-2060ETSE (RBC) [Mass/Vol]33.0 g/dL32.5-35.6 German HospitalMCV Auto (RBC) [Entitic vol]Ordered By: Fredi Medrano on 12-62-7611FZF (RBC) [Entitic vol]84.6 fL83.5-101 German HospitalMonocytes Auto (Bld) [#/Vol]Ordered By: Fredi Medrano on 17-33-6474Trqvhsprk (Bld) [#/Vol]0.7 10*3/uL0.0-0.8 German HospitalMonocytes/100 WBC Auto (Bld)Ordered By: Fredi Medrano on 33-35-2923Gcgirrnvq/100 WBC (Bld)9.9 %.German HospitalNeutrophils Auto (Bld) [#/Vol]Ordered By: Fredi Medrano on 16-89-4766Wjtatpezrkb (Bld) [#/Vol]4.6 10*3/uL1.8-7.7FTrinity Health SystemNeutrophils/100 WBC Auto (Bld)Ordered By: Fredi Medrano on 87-24-1448Volytzmojwh/100 WBC (Bld)64.9 %.German HospitalNo Panel InformationOrdered By: Fredi Medrano on 05-04-2023 Estimated GFR (CKD-EPI)> 60.0 mL/MinGerman HospitalPharmacy Creatinine Clearance (Chem62.25German HospitalNucleated erythrocytes [Presence] in Blood by Automated countOrdered By: Fredi Medrano on 70-84-8313Edlqfnzww RBC Auto Ql (Bld)0.2 /100{WBC}0-0.5FTrinity Health SystemPlatelet mean volume Auto (Bld) [Entitic vol]Ordered By: Fredi Medrano on 40-37-8065Rsyewdkp mean volume (Bld) [Entitic vol]8.9 fL 6.6-10.1FTrinity Health SystemPlatelets Auto (Bld) [#/Vol]Ordered By: Fredi Medrano on 51-88-5773Ondrfvknl (Bld) [#/Vol]218 10*3/tW226-628 German HospitalPotassium [Moles/volume] in Serum or Plasma Ordered By: Fredi Medrano on 21-55-3299Qrybybguv [Moles/Vol]4.6 mmol/L 3.5-5.1FTrinity Health SystemPrealbumin [Mass/volume] in Serum or PlasmaOrdered By: Fredi Medrano on 97-36-1110Vpzmrdjnsa [Mass/Vol]10.2 mg/dL17.0-34.0German HospitalProtein [Mass/volume] in Serum or PlasmaOrdered By: Fredi Medrano on 38-38-9468Lotsfum [Mass/Vol]5.4 g/dL 6.4-8.9German HospitalRBC Auto (Bld) [#/Vol]Ordered By: Fredi Medrano on 23-52-9693SLZ (Bld) [#/Vol]3.46 10*6/uL3.90-5.60 [facility] Centererum or plasma albumin/globulin mass ratio Ordered By: Fredi Medrano on 27-91-9165Kgxfxpk/Globulin [Mass ratio]1.2 {ratio}[facility] Centererum or plasma anion gap determination Ordered By: Fredi Medrano on 03-45-2049Txxfp gap [Moles/Vol]8.6 mmol/L 6.0-15.0[facility] Centerodium [Moles/volume] in Serum or PlasmaOrdered By: Fredi Medrano on 79-51-8200Wbajqz [Moles/Vol]134 mmol/L 136-145German HospitalUrea nitrogen [Mass/volume] in Serum or PlasmaOrdered By: Fredi Medrano on 74-08-9211Yxka nitrogen [Mass/Vol]22 mg/dL7-25German HospitalWBC Auto (Bld) [#/Vol]Ordered By: Fredi Medrano on 66-75-6134THB (Bld) [#/Vol]7.2 10*3/uL4.1-10.5FTrinity Health SystemCholesterol [Mass/volume] in Serum or PlasmaOrdered By: Anat Perez on 79-15-4693Fvmoatuysfn [Mass/Vol]98 mg/wN829-617LtsfzhjlhGerman HospitalComment on above:Chol less than 200 mg/dl low riskChol 201-239 mg/dl borderline riskChol 240 mg/dl and greater high riskCholesterol in LDL Calc [Mass/Vol]Ordered By: Anat Perez on 33-90-2425Mxxrpwkfevq in LDL [Mass/Vol]46 mg/dL0-100German HospitalComment on above:LDL ATP III CLASSIFICATIONLDL less than 100 mg/dL OptimalLDL 100-129 mg/dL Near or above cvgtvfqCFM577-077 mg/dL Borderline highLDL 160-189 mg/dL HighLDL greater than 189 mg/dL Very highCholesterol in VLDL Calc [Mass/Vol]Ordered By: Anat Perez on 46-34-7951Jdaivacache in VLDL [Mass/Vol]12 mg/dLGerman HospitalGlucose Glucometer (BldC) [Mass/Vol]Ordered By: Humberto Diaz on 22-07-8987Zdaeiln [Mass/Vol]388 mg/dLGerman HospitalComment on above:Random Glucose Reference Range is dependent on time and content of last meal. Glucose of more than 200 mg/dL in a nonstressed, ambulatory subject supports the diagnosis of Diabetes Mellitus.Serum or plasma high density lipoprotein (HDL) cholesterol measurementOrdered By: Anat Perez on 05-03-2023 Cholesterol in HDL [Mass/Vol]39 mg/yA67-97LawejkfdkGerman Hospital Comment on above:HDL CHOL ATP-III CLASSIFICATION Cardiovascular RiskHDL > or equal to 60 mg/dL LOWHDL < 40 mg/dL HIGHSerum or plasma total cholesterol/high density lipoprotein (HDL) cholesterol mass ratOrdered By: Anat Perez on 06-52-2544Myajjzzclpd.total/Cholesterol in HDL [Mass ratio]2.5 {ratio}<5.0 German HospitalTriglyceride [Mass/volume] in Serum or Plasma Ordered By: Anat Perez on 91-19-0601Ufdhhhxomgnk [Mass/Vol]64 mg/dL0-149 [facility] HospitalComment on above:TRIG ATP III CLASSIFICATIONTRIG less than 150 mg/dL NormalTRIG 150-199 mg/dL Borderline highTRIG 200-500 mg/dL High TRIG greater than 500 mg/dL Very highStandard traceable to the Center for Disease Conrtrol and Prevention (CDC) test method. Basophils Auto (Bld) [#/Vol]Ordered By: Sushant Cordon on 05-02-2023 Basophils (Bld) [#/Vol]0.0 10*3/uL0.0-0.2FTrinity Health System Basophils/100 WBC Auto (Bld)Ordered By: Sushant Cordon on 05-02-2023 Basophils/100 WBC (Bld)0.1 %.German HospitalCalcium [Mass/volume] in Serum or PlasmaOrdered By: Sushant Cordon on 05-02-2023 Calcium [Mass/Vol]8.0 mg/dL8.6-10.3FTrinity Health SystemCarbon dioxide, total [Moles/volume] in Serum or PlasmaOrdered By: Sushant Cordon on 11-42-7355FX7 [Moles/Vol]30.1 mmol/L21.0-31.0German HospitalChloride [Moles/volume] in Serum or PlasmaOrdered By: Sushant Cordon on 53-21-1506Iovwfdpx [Moles/Vol]97 mmol/J28-813MefkynotcGerman HospitalCreatinine [Mass/volume] in Serum or PlasmaOrdered By: Sushant Cordon on 01-13-6807Vrrbmbgxwp [Mass/Vol]0.86 mg/dL0.70-1.30German HospitalEosinophils Auto (Bld) [#/Vol]Ordered By: Sushant Cordon on 31-71-7415Lvnpxtrgipl (Bld) [#/Vol]0.1 10*3/uL0.0-0.45German HospitalEosinophils/100 WBC Auto (Bld)Ordered By: Sushant Cordon on 77-20-2359Xxwrtetqhzd/100 WBC (Bld)0.8 %.German HospitalErythrocyte distribution width Auto (RBC) [Ratio]Ordered By: Sushant Cordon on 11-34-2023Tosmocsmvgn distribution width (RBC) [Ratio]17.0 % 12.0-14.8German HospitalGlucose [Mass/volume] in Serum or PlasmaOrdered By: Sushant Cordon on 23-84-7058Yomyxfn [Mass/Vol]87 mg/dL 70-100German HospitalComment on above:ADA recommended reference rangeRandom Glucose Reference Range is dependent on time and content of last meal. Glucose of more than 200 mg/dL in a nonstressed, ambulatory subject supports the diagnosisof Diabetes Mellitus.Hematocrit Auto (Bld) [Volume fraction]Ordered By: Sushant Cordon on 73-09-4874Hyjxpyilwc (Bld) [Volume fraction]27.8 %38.8-50.0German HospitalHemoglobin [Mass/volume] in BloodOrdered By: Sushant Cordon on 62-32-6828Lbelaocsei (Bld) [Mass/Vol]9.3 g/dL13.0-17.0German HospitalLeukocytes [#/volume] corrected for nucleated erythrocytes in Blood by Automated coun Ordered By: Sushant Cordon on 77-01-4469OSD corrected for nucl RBC Auto (Bld) [#/Vol]8.6 10*3/uL4.1-10.5FTrinity Health SystemLymphocytes Auto (Bld) [#/Vol]Ordered By: Sushant Cordon on 90-16-6798Brhkjdblttw (Bld) [#/Vol]1.2 10*3/uL1.00-4.8German HospitalLymphocytes/100 WBC Auto (Bld)Ordered By: Sushant Cordon on 66-26-3830Akabkgwdqmm/100 WBC (Bld)13.7 %.[facility] Auto (RBC) [Entitic mass] Ordered By: Sushant Cordon on 95-61-7565NXH (RBC) [Entitic mass]28.3 pg 27.5-35.2FTrinity Health SystemMCHC Auto (RBC) [Mass/Vol]Ordered By: Sushant Cordon on 68-79-1125KHQY (RBC) [Mass/Vol]33.6 g/dL32.5-35.6 German HospitalMCV Auto (RBC) [Entitic vol]Ordered By: Sushant Cordon on 76-42-9279TGA (RBC) [Entitic vol]84.2 fL83.5-101 German HospitalMonocytes Auto (Bld) [#/Vol]Ordered By: Sushant Cordon on 53-89-8754Vftllzdgk (Bld) [#/Vol]1.2 10*3/uL0.0-0.8 German HospitalMonocytes/100 WBC Auto (Bld)Ordered By: Sushant Cordon on 58-91-2900Gffuijhsw/100 WBC (Bld)13.5 %.German HospitalNeutrophils Auto (Bld) [#/Vol]Ordered By: Sushant Cordon on 11-22-5153Marmjjibhbp (Bld) [#/Vol]6.2 10*3/uL1.8-7.7FTrinity Health SystemNeutrophils/100 WBC Auto (Bld)Ordered By: Sushant Cordon on 95-85-8091Zilmrwmcljm/100 WBC (Bld)71.9 %.German HospitalNo Panel InformationOrdered By: Sushant Cordon on 05-02-2023 Bedside Glucose CommentSee commentGerman HospitalComment on above:Glu2: WILL NOTIFY DR/RNEstimated GFR (CKD-EPI)> 60.0 mL/MinGerman HospitalPharmacy Creatinine Clearance (Chem59.22German HospitalNucleated erythrocytes [Presence] in Blood by Automated countOrdered By: Sushant Cordon on 22-63-5966Fbiifzdov RBC Auto Ql (Bld) 0.0 /100{WBC}0-0.5FTrinity Health SystemPlatelet mean volume Auto (Bld) [Entitic vol]Ordered By: Sushant Cordon on 75-18-0103Wkfglkee mean volume (Bld) [Entitic vol]9.3 fL6.6-10.1FTrinity Health System Platelets Auto (Bld) [#/Vol]Ordered By: Sushant Cordon on 05-02-2023 Platelets (Bld) [#/Vol]168 10*3/gC289-452UimggtigdGerman Hospital Potassium [Moles/volume] in Serum or PlasmaOrdered By: Sushant Cordon on 43-26-0397Avrwufrye [Moles/Vol]4.2 mmol/L3.5-5.1FTrinity Health SystemRBC Auto (Bld) [#/Vol]Ordered By: Sushant Cordon on 78-24-4244VJQ (Bld) [#/Vol]3.29 10*6/uL3.90-5.60UC Medical Centererum or plasma anion gap determinationOrdered By: Sushant Cordon on 05-02-2023 Anion gap [Moles/Vol]8.1 mmol/L6.0-15.0UC Medical Centerodium [Moles/volume] in Serum or PlasmaOrdered By: Sushant Cordon on 05-02-2023 Sodium [Moles/Vol]131 mmol/S058-255PlvynjijzGerman HospitalUrea nitrogen [Mass/volume] in Serum or PlasmaOrdered By: Sushant Cordon on 94-82-3798Jeun nitrogen [Mass/Vol]21 mg/dL7-25[facility] WBC Auto (Bld) [#/Vol]Ordered By: Sushant Cordon on 70-42-0830EIE (Bld) [#/Vol]8.6 10*3/uL4.1-10.5FTrinity Health SystemActivated partial thromboplastin time (aPTT) in platelet poor plasma by coagulation aOrdered By: Anat Perez on 93-75-6686qBWL Coag (PPP) [Time]30.6 s25.1-36.5FTrinity Health SystemComment on above:A hematocrit value greater than 55% may lead to inaccurate results in coagulation testing. Patientshaving hematocrit values >55% require a special collection tube for coagulation studies. Please c ontact the laboratory at [phone] for redraw instructions.INR in Platelet poor plasma by Coagulation assayOrdered By: Anat Perez on 57-80-3859WUP Coag (PPP) [Relative time]1.3 {INR}German HospitalComment on above: INR Therapeutic Range A) [...] on 04-30-2023 Natriuretic peptide B (Bld) [Mass/Vol]523.0 pg/mL5-100German HospitalProthrombin time (PT)Ordered By: Anat Perez on 37-13-7670AU Coag (PPP) [Time]15.6 s9.0-12.9German HospitalComment on above:A hematocrit value greater than 55% may lead to inaccurate results in coagulation testing. Patientshaving hematocrit values >55% require a special collection tube for coagulation studies. Please contact the laboratory at [phone] for redraw instructions.Troponin I.cardiac [Mass/volume] in Serum or Plasma by Detection limit <= 0.01 ng/Ordered By: Anat Perez on 93-61-2604Okhfqefc I.cardiac DL <= 0.01 ng/mL [Mass/Vol]53.7 pg/mL0.0-20.0German HospitalComment on above:Critical Result : Called to and read back by: STEVEN BYRD at: 04/30/2023 19:24:20 by:[id number] [Mass/volume] in Serum or PlasmaOrdered By: Sushant Cordon on 87-37-1699Cmdshhmr [Mass/Vol]41.5 ng/mL23.9-336.2FTrinity Health SystemFolate [Mass/volume] in Serum or PlasmaOrdered By: Sushant Cordon on 60-91-4701Djdmss [Mass/Vol]28.0 ng/mL >5.9German HospitalComment on above:Folate reference range: >5.9 ng/mlThe WHO technical consultation on folate and vitamin z51mlxdcsskoxxr has determined that folate concentrations lessthan 4 ng/ml are considered deficient.Iron [Mass/volume] in Serum or PlasmaOrdered By: Sushant Cordon on 78-92-4186Qrov [Mass/Vol]45 ug/aT10-535NjirsfzqpGerman HospitalIron binding capacity [Mass/volume] in Serum or PlasmaOrdered By: Sushant Cordon on 16-46-4721Zeai binding capacity [Mass/Vol]330 ug/eG216-823JmoyckfhcGerman HospitalIron saturation [Mass Fraction] in Serum or Plasma Ordered By: Sushant Cordon on 02-89-5984Mbdz saturation [Mass fraction] 13.6 %20-50German HospitalMagnesium [Mass/volume] in Serum or PlasmaOrdered By: Sushant Cordon on 28-52-7440Ngrlhufql [Mass/Vol]1.9 mg/dL1.9-2.7FTrinity Health SystemNo Panel InformationOrdered By: Sushant Cordon on 61-12-5328Xyjnpso Glucose #2 CommentWill notify /rn German HospitalTransferrin [Mass/volume] in Serum or Plasma Ordered By: Sushant Cordon on 13-56-7049Orihzpzwqip [Mass/Vol]236 mg/dL 203-362German HospitalVitamin B12 ser/plasOrdered By: Sushant Cordon on 15-60-6861Xydlhydpk (Vitamin B12) [Mass/Vol]626 pg/mL 180-914German HospitalActivated partial thromboplastin time (aPTT) in platelet poor plasma by coagulation aOrdered By: Vinnie Rivas on 52-47-4866nDPA Coag (PPP) [Time]27.8 s25.1-36.5FTrinity Health System Comment on above:A hematocrit value greater than 55% may lead to inaccurate results in coagulation testing. Patientshaving hematocrit values >55% require a special collection tube for coagulation studies. Please contact the laboratory at [phone] for redraw instructions.Alanine aminotransferase [Enzymatic activity/volume] in Serum or PlasmaOrdered By: Vinnie Rivas on 22-56-2587CPE [Catalytic activity/Vol]34 U/L7-52German HospitalAlbumin [Mass/volume] in Serum or Plasma by Bromocresol green (BCG) dye binding metho Ordered By: Vinnie Rivas on 29-87-1060Kxfzumx BCG dye [Mass/Vol]4.0 g/dL3.5-5.7 German HospitalAlkaline phosphatase [Enzymatic activity/volume] in Serum or PlasmaOrdered By: Vinnie Rivas on 10-84-7099XUZ [Catalytic activity/Vol]108 U/U44-509KlaizhbgyGerman HospitalAspartate aminotransferase [Enzymatic activity/volume] in Serum or PlasmaOrdered By: Vinnie Rivas on 54-18-3370DQM [Catalytic activity/Vol]46 U/D13-23FsgzihwfhGerman HospitalBasophils Auto (Bld) [#/Vol]Ordered By: Vinnie Rivas on 07-33-9475Jmojryykh (Bld) [#/Vol]0.0 10*3/uL0.0-0.2FTrinity Health SystemBasophils/100 WBC Auto (Bld)Ordered By: Vinnie Rivas on 04-28-2023 Basophils/100 WBC (Bld)0.4 %.German HospitalBilirubin Test strip Ql (U)Ordered By: Vinnie Rivas on 38-78-0508Bydqvmkqd Ql (U)Negative NegativeGerman HospitalBilirubin.total [Mass/volume] in Serum or PlasmaOrdered By: Vinnie Rivas on 47-58-4846Fcrahqizs [Mass/Vol]0.3 mg/dL 0.3-1.0German HospitalCalcium [Mass/volume] in Serum or Plasma Ordered By: Vinnie Rivas on 17-54-5417Kywkjcy [Mass/Vol]9.0 mg/dL8.6-10.3 German HospitalCarbon dioxide, total [Moles/volume] in Serum or PlasmaOrdered By: Vinnie Rivas on 93-60-9571OK4 [Moles/Vol]30.4 mmol/L 21.0-31.0German HospitalChloride [Moles/volume] in Serum or PlasmaOrdered By: Vinnie Rivas 50-96-1985Bymdmjur [Moles/Vol]101 mmol/L98-107 German HospitalColor Auto (U)Ordered By: Vinnie Rivas on 80-50-3168Zvpdx (U)YellowYellowGerman HospitalCreatinine [Mass/volume] in Serum or PlasmaOrdered By: Vinnie Rivas on 57-46-0434Gemijhvupt [Mass/Vol]0.71 mg/dL0.70-1.30German HospitalEosinophils Auto (Bld) [#/Vol]Ordered By: Vinnie Rivas on 07-43-6597Bbukqmktkav (Bld) [#/Vol]0.0 10*3/uL0.0-0.45German HospitalEosinophils/100 WBC Auto (Bld) Ordered By: Vinnie Rivas on 75-46-9157Vizvsuluczn/100 WBC (Bld)0.5 %.German HospitalErythrocyte distribution width Auto (RBC) [Ratio]Ordered By: Vinnie Rivas on 88-54-5352Ywcvzjzwsjf distribution width (RBC) [Ratio]18.0 % 12.0-14.8German HospitalFructosamine [Moles/volume] in Serum or PlasmaOrdered By: Sushant Cordon on 38-41-8129Jwnxardwnivk [Moles/Vol] 565 umol/L0-285German HospitalComment on above:Published reference interval for apparently healthysubjects between age 20 and 60 is 205 - 285 umol/L and in apoorly controlled diabetic population is 228 - 563 umol/Lwith a mean of 396 umol/L.Performed at: [facility] [id number] Director: Arturo Boles PhD, Phone: [phone] Globulin Calc (S) [Mass/Vol]Ordered By: Vinnie Rivas on 76-71-9697Dewwdrfq (S) [Mass/Vol]3.2 g/dLGerman HospitalGlucose Glucometer (BldC) [Mass/Vol]Ordered By: Sushant Cordon on 99-18-0113Nahedbd [Mass/Vol]137 mg/dLGerman HospitalComment on above:Random Glucose Reference Range is dependent on time and content of last meal. Glucose of more than 200 mg/dL in a nonstressed, ambulatory subject supports the diagnosis of Diabetes Mellitus.Glucose [Mass/volume] in Serum or PlasmaOrdered By: Vinnie Rivas on 16-19-6889Qvaqcgp [Mass/Vol]124 mg/yU89-340SfprxpeefGerman Hospital Comment on above:ADA recommended reference rangeRandom Glucose Reference Range is dependent on time and content of last meal. Glucose of more than 200 mg/dL in a nonstressed, ambulatory subject supports the diagnosisof Diabetes Mellitus. Glucose mean value [Mass/volume] in Blood Estimated from glycated hemoglobin Ordered By: Sushant Cordon on 77-79-4150Bobswcx glucose Estimated from glycated hemoglobin (Bld) [Mass/Vol]309 mg/dLGerman Hospital Hematocrit Auto (Bld) [Volume fraction]Ordered By: Vinnie Rivas on 04-28-2023 Hematocrit (Bld) [Volume fraction]34.8 %38.8-50.0German HospitalHemoglobin A1c percentageOrdered By: Sushant Cordon on 04-28-2023 HbA1c (Bld) [Mass fraction]12.4 %4.3-5.6FTrinity Health SystemComment on above:Increased risk for diabetes: 5.7 - 6.4diabetes: >6.4glycemic control for adults with diabetes: <7.0Hemoglobin [Mass/volume] in BloodOrdered By: Vinnie Rivas on 87-64-5499Wdnuherhfd (Bld) [Mass/Vol]11.5 g/dL13.0-17.0German HospitalINR in Platelet poor plasma by Coagulation assayOrdered By: Vinnie Rivas on 29-16-3389AWA Coag (PPP) [Relative time]1.0 {INR}German HospitalComment on above:INR Therapeutic Range A) Pre- [...] strip (U) [Mass/Vol]Ordered By: Vinnie Rivas on 29-42-3105Lkrgiyc (U) [Mass/Vol]Negative NegativeGerman HospitalLeukocytes [#/volume] corrected for nucleated erythrocytes in Blood by Automated counOrdered By: Vinnie Rivas on 30-32-9319RWZ corrected for nucl RBC Auto (Bld) [#/Vol]9.7 10*3/uL4.1-10.5 German HospitalLymphocytes Auto (Bld) [#/Vol]Ordered By: Vinnie Rivas on 00-58-5593Dvylhplcamw (Bld) [#/Vol]1.4 10*3/uL1.00-4.8German HospitalLymphocytes/100 WBC Auto (Bld)Ordered By: Vinnie Rivas on 58-07-8811Haignqysbjw/100 WBC (Bld)14.8 %.[facility]H Auto (RBC) [Entitic mass]Ordered By: Vinnie Rivas on 50-51-8140YHR (RBC) [Entitic mass]28.0 pg27.5-35.2FTrinity Health SystemMCHC Auto (RBC) [Mass/Vol]Ordered By: Vinnie Rivas on 40-82-7512DEQF (RBC) [Mass/Vol]33.2 g/dL 32.5-35.6FTrinity Health SystemMCV Auto (RBC) [Entitic vol]Ordered By: Vinnie Rivas on 79-71-6831YHN (RBC) [Entitic vol]84.3 fL83.5-101German HospitalMonocyte distribution width [Entitic volume] in Blood by AutomatedOrdered By: Vinnie Rivas on 50-78-7109Khbdcbzj distribution width Auto (Bld) [Entitic vol]18.61 %0.00-20.00German HospitalMonocytes Auto (Bld) [#/Vol]Ordered By: Vinnie Rivas on 51-18-7205Zlgxmttdy (Bld) [#/Vol] 0.9 10*3/uL0.0-0.8German HospitalMonocytes/100 WBC Auto (Bld) Ordered By: Vinnie Rivas on 28-00-4228Jjxvchhwn/100 WBC (Bld)9.3 %.German HospitalNatriuretic peptide B [Mass/Vol]Ordered By: Vinnie Rivas on 11-25-3372Tmdqchozlhp peptide B (Bld) [Mass/Vol]665.0 pg/mL5-100German HospitalNeutrophils Auto (Bld) [#/Vol]Ordered By: Vinnie Rivas on 85-66-1109Aanfngcdcsi (Bld) [#/Vol]7.3 10*3/uL1.8-7.7FTrinity Health SystemNeutrophils/100 WBC Auto (Bld)Ordered By: Vinnie Rivas on 04-28-2023 Neutrophils/100 WBC (Bld)75.0 %.German HospitalNitrite Test strip Ql (U)Ordered By: Vinnie Rivas on 09-96-3797Awtgiks Ql (U)NegativeNegative German HospitalNo Panel InformationOrdered By: Vinnie Rivas on 12-27-0365Ewurrfwni GFR (CKD-EPI)> 60.0 mL/MinGerman Hospital Pharmacy Creatinine Clearance (Chem60.38[facility] Nucleated erythrocytes [Presence] in Blood by Automated countOrdered By: Vinnie Rivas on 66-39-6976Wtqperizu RBC Auto Ql (Bld)0.1 /100{WBC}0-0.5FTrinity Health SystemPlatelet mean volume Auto (Bld) [Entitic vol]Ordered By: Vinnie Rivas on 40-12-4765Fvdaqhue mean volume (Bld) [Entitic vol]9.3 fL6.6-10.1 German HospitalPlatelets Auto (Bld) [#/Vol]Ordered By: Vinnie Rivas on 85-33-2347Qfyndnjvq (Bld) [#/Vol]206 10*3/eH099-425NgfgjzzcjGerman HospitalPotassium [Moles/volume] in Serum or PlasmaOrdered By: Vinnie Rivas on 61-12-9851Zgnzchabr [Moles/Vol]4.9 mmol/L3.5-5.1FTrinity Health SystemProtein Auto test strip (U) [Mass/Vol]Ordered By: Vinnie Rivas on 14-26-7922Nxnefax (U) [Mass/Vol]NegativeNegativeGerman HospitalProtein [Mass/volume] in Serum or PlasmaOrdered By: Vinnie Rivas on 86-44-4150Qhljqds [Mass/Vol]7.2 g/dL6.4-8.9[facility] Prothrombin time (PT)Ordered By: Vinnie Rivas on 91-00-8510BL Coag (PPP) [Time] 11.8 s9.0-12.9German HospitalComment on above:A hematocrit value greater than 55% may lead to inaccurate results in coagulation testing. Patientshaving hematocrit values >55% require a special collection tube for coagulation studies. Please contact the laboratory at [phone] for redraw instructions.RBC Auto (Bld) [#/Vol]Ordered By: Vinnie Rivas on 21-38-3485NRM (Bld) [#/Vol]4.12 10*6/uL3.90-5.60[facility] Medical Centererum or plasma albumin/globulin mass ratioOrdered By: Vinnie Rivas on 04-28-2023 Albumin/Globulin [Mass ratio]1.3 {ratio}[facility] Centererum or plasma anion gap determinationOrdered By: Vinnie Rivas on 36-42-5012Tuftk gap [Moles/Vol]9.5 mmol/L6.0-15.0[facility] Medical Centerodium [Moles/volume] in Serum or PlasmaOrdered By: Vinnie Rivas on 75-14-0234Doqmwd [Moles/Vol]136 mmol/P495-852BpasklesnUC Medical Centerpecific gravity Auto test strip (U) [Rel density]Ordered By: Vinnie Rivas on 30-36-0737Oujxpdax gravity (U) [Rel density]1.0091.001-1.030[facility] Troponin I.cardiac [Mass/volume] in Serum or Plasma by Detection limit <= 0.01 ng/Ordered By: Vinnie Rivas 62-06-6774Jvgedgfk I.cardiac DL <= 0.01 ng/mL [Mass/Vol]38.3 pg/mL0.0-20.0German HospitalUrea nitrogen [Mass/volume] in Serum or PlasmaOrdered By: Vinnie Rivas 64-82-3739Qyfo nitrogen [Mass/Vol]15 mg/dL7-25German HospitalUrine clarity by refractometry automatedOrdered By: Vinnie Rivas 93-13-9447Evyfppl Refractometry automated (U)ClearClearFTrinity Health SystemUrine glucose measurement by automated test strip (mass/volume)Ordered By: Vinnie Rivas 09-93-4508Qwanjed Auto test strip (U) [Mass/Vol]Normal mg/dLNormal German HospitalUrine hemoglobin detection by automated test stripOrdered By: Vinnie Rivas on 23-26-1636Surtixmmir Auto test strip Ql (U) NegativeNegativeGerman HospitalUrine leukocyte esterase detection by automated test stripOrdered By: Vinnie Rivas on 29-13-1756Hzsvleymx esterase Auto test strip Ql (U)NegativeNegativeGerman HospitalUrobilinogen Auto test strip (U) [Mass/Vol]Ordered By: Vinnie Rob on 91-48-8848Kgyfaccbaziz (U) [Mass/Vol]Normal mg/dLNormalGerman HospitalWBC Auto (Bld) [#/Vol]Ordered By: Vinnie Rivas on 84-64-6027NUB (Bld) [#/Vol]9.7 10*3/uL4.1-10.5FTrinity Health SystempH Auto test strip (U)Ordered By: Vinnie Rivas on 00-13-5170kJ (U)6.5 [pH]5.0-9.0German HospitalCoding Summaryon 69-61-0403Fqhlsp SummaryHTMLBase 64 WjtjplysMCr1jBj+PGhlYWQ+NX9JUILiL65jzSHuqK3oQ5WTHYtVVwugVWPELWiCJjTqysKzXN6acONi ZXJu [file] bGx (more content not included)...[facility] HospitalConsent Formson 61-52-9149Lizhnpj [id number]#1.00OTGTIFFNormal [facility] Park HospitalBUN/Creat Ratioon 45-78-2788lBFS Non AA>60Invalid Interpretation [facility] HospitalComment on above:Performed By: #### [id number] #### [facility] (DEFAULT) [address] [place] [address]wPKZ AA>60Invalid Interpretation [facility] Comment on above:Performed By: #### [id number] #### [facility] (DEFAULT) [address] [place] [address] 159[address]Bvhjqcpzsx [Mass/Vol]0.69 mg/dLLow0.90-1.30[facility] HospitalComment on above:Performed By: #### [id number] #### [facility] (DEFAULT) [address] [place] [address], [place] [address]Tcno nitrogen [Mass/Vol]14 mg/dLNormal8-26[facility] HospitalComment on above:Performed By: #### [id number] #### [facility] (DEFAULT) [address] [place] [address] 75258Htzn nitrogen/Creatinine [Mass ratio]20.2 mg/mgHigh 4.6-16.2Mmercy hospital HospitalComment on above:Performed By: #### [id number] #### [facility] (DEFAULT) [address] [place] [id number] Urogramon 90-09-9054GP UrogramCLINICAL HISTORY: Hydronephrosis. COMPARISON: None available. TECHNIQUE: [...] Mima Solorzano MD 04/23/23 3:17 pm Technologist: MACKENZIESelect Medical Specialty Hospital - ColumbusProvider Orderson 42-18-5505Cklanoej [id number]#1.00OTGTIFFParkview Health Bryan HospitalUS RENAL AND BLADDERon 09-53-1651SkcFlor[place] [address] Ultrasound Report Signed Patient: MANOLO ROCHE MR#: [id number] : 1935 Acct:[id number] Age/Sex: 88 / M ADM Date: 04/12/23 Loc: US Attending Dr: JonesStaff Physician Morin Ordering Physician: Maci Morton M.D. Date of Service: 04/12/23 Procedure(s): US renal bladder Accession Number(s): [id number] cc: Maci Morton M.D.; MARIE TEJEDA [place] [address] Patient Name: MANOLO ROCHE MRN: [id number] date: 1935 Sex: M Assigned Patient Location: US Current Patient Location: US Accession/Order Number: [id number] Exam Date: 04/12/2023 09:03 Report Date: 04/12/2023 [...] Signed By: 04/12/23 1011 DD/ 1008 TD/TT: Environmental Health Inspector:MIGUELANGELHRadiology, Radiologist, - 04/15/2023 [place] [address] Ultrasound Report Signed Patient: MANOLO ROCHE MR#: [id number] : 1935 Acct:[id number] Age/Sex: 88 / M ADM Date: 04/12/23 Loc: US Attending Dr: Haley-Staff Physician Morin Ordering Physician: Maci Morton M.D. Date of Service: 04/12/23 Procedure(s): US renal bladder Accession Number(s): [id number] cc: PhysicianMaci M.D.; MARIE TEJEDA [place] [id number] Patient Name: MANOLO ROCHE MRN: [id number] date: 1935 Sex: M Assigned Patient Location: Current Patient Location: [place] Accession/Order Number: [id number] Exam Date: 04/12/2023 09:03 Report Date: 04/12/2023 [...] Signed By: 04/12/23 1011 DD/ 1008 TD/TT: Environmental Health Inspector: [facility] HealthcareRadiology Study observation (narrative)[facility] SystemUS RENAL AND BLADDEROrdered By: Radiologist Radiology on 25-31-8770[facility] [employer] Work Phone: Provider Orderson 03-85-8398Upcpiwsm Orders [id number]#1.00OTGTIFFKettering Health Miamisburg RANDOMon 96-71-1880Mqrncbfob Ql (U)NegativeNormalNEGATIVEDiley Ridge Medical Center Comment on above:Performed By: #### CMP, LIPID #### [facility] [address] [place] [address] Dr. Kylee Oneill (U)CLEARNormalCLEARDiley Ridge Medical CenterComment on above: Performed By: #### CMP, LIPID #### [facility] [address] [place] [address] Dr. Kylee De La Garza (U)YELLOWNormalYELLOWDiley Ridge Medical CenterComment on above: Performed By: #### CMP, LIPID #### [facility] [address] [place] [address] Dr. Yilan ChangGlucose Ql (U)NegativeNormalNEGATIVEDiley Ridge Medical CenterComment on above:Performed By: #### CMP, LIPID #### [facility] [address] [address] [address] Kylee BunchHemoglobin Ql (U)TRACE-INTACTAbnormalNEGATIVEDiley Ridge Medical CenterComment on above:Performed By: #### CMP, LIPID #### [facility] [address] [address] [address] Kylee BunchKetones Ql (U)TRACEAbnormalNEGATIVEDiley Ridge Medical CenterComment on above:Performed By: #### CMP, LIPID #### [facility] [address] [place] [address] Dr. Kylee BunchLEUKOCYTESNegativeNormalNEGATIVEDiley Ridge Medical CenterComhills & [facility] on above:Performed By: #### CMP, LIPID #### [facility] [address] [place] [address] Dr. Kylee BunchNitrite Ql (U)NegativeNormalNEGATIVEDiley Ridge Medical CenterComment on above:Performed By: #### CMP, LIPID #### [facility] [address] [place] [address] Dr. Kylee BunchpH (U)5.5 [pH]Normal5-9The [facility] on above: Performed By: #### CMP, LIPID #### [facility] [address] [place] [address] Dr. Kylee BunchSPEC GRAVITY>=1.621Frllydww5.005-<=1.025The [facility] Comment on above:Performed By: #### CMP, LIPID #### [facility] [address] [place] [address] Dr. Kylee BunchUA PROTEINNegativeSorentoNEGATIVE/ TRACEThe [facility] Comment on above:Performed By: #### CMP, LIPID #### [facility] [address] [place] [address] Dr. Kylee BunchUrobilinogen Qn (U)0.2 {Gemini'U}/dLNormal0.2 - 1.0The The Jewish HospitalComment on above:Performed By: #### CMP, LIPID #### [facility] [address] [place] [address] Dr. Kylee Locke AUTO DIFFon 14-36-0965MWIN #0.0 103/ulNormal0.0-0.1The The Jewish HospitalComment on above:Performed By: #### CMP, LIPID #### [facility] [address] [place] [address] Dr. Kylee BunchBasophils/100 WBC (Bld)0.7 %Normal0.2-2.0[facility] Comment on above:Performed By: #### CMP, LIPID #### [facility] [address] [place] [address] Dr. Kylee Del Castillo #0.1 103/ulNormal0.0-0.7The The [facility] HospitalComment on above: Performed By: #### CMP, LIPID #### [facility] [address] [place] [address] Dr. Kylee Steinbergosinophils/100 WBC (Bld)2.6 %Normal0.9-7.0The [facility] Comment on above:Performed By: #### CMP, LIPID #### [facility] [address] [place] [address] Dr. Kylee Steinbergrythrocyte distribution width (RBC) [Ratio]17.2 %Critically high 11.0-15.0[facility] Medical CenterComment on above:Performed By: #### CMP, LIPID #### [facility] [address] [place] [address] Dr. Kylee BunchHematocrit (Bld) [Volume fraction]36.1 %Critically low42.0-54.0 [facility] above:Performed By: #### CMP, LIPID #### [facility] [address] [place] [address] Dr. Kylee BunchHemoglobin (Bld) [Mass/Vol]12.1 g/dLCritically low14.0-18.0[facility] on above:Performed By: #### CMP, LIPID #### [facility] [address] [address] [address] Kylee Mckoy #0.01 10e3/ulNormal0.00-0.03[facility] on above:Performed By: #### CMP, LIPID #### [facility] [address] [place] [address] Dr. Kylee Mckoy %0.2 %Normal0.0-0.5[facility]Comh[facility] hospital on above: Performed By: #### CMP, LIPID #### [facility] [address] [place] [address] Dr. Kylee Jones #1.7 103/ulNormal1.2-3.8The The Jewish HospitalComment on above:Performed By: #### CMP, LIPID #### [facility] [address] [place] [address] Dr. Kylee Casashocytes/100 WBC (Bld)30.9 %Ltfddj58.5-60.0The [facility] on above:Performed By: #### CMP, LIPID #### [facility] [address] [place] [address] Dr. Kylee BauerUAL DIFF REQNONormalThe [facility] HospitalComh[facility] on above: Performed By: #### CMP, LIPID #### [facility] [address] [place] [address] Dr. Kylee Beasley (RBC) [Entitic mass]27.4 glEwjlss77.9-34.0The [facility] on above:Performed By: #### CMP, LIPID #### [facility] [address] [place] [address] Dr. Kylee Beasley (RBC) [Mass/Vol]33.5 g/sZIocsge05.9-35.2The [facility] on above:Performed By: #### CMP, LIPID #### [facility] [address] [place] [address] Dr. Kylee Beasley (RBC) [Entitic vol]81.9 uFChbhwg44.0-94.0The [facility] HospitalComment on above:Performed By: #### CMP, LIPID #### [facility] [address] [address] [address] Kylee Abarca #0.7 103/ulNormal0.3-0.8The [place] [facility]:Performed By: #### CMP, LIPID #### [facility] [address] [address] [address] Kylee Mirelesocytes/100 WBC (Bld)12.9 %Critically high1.7-12.0The [facility] HospitalComh[facility] on above:Performed By: #### CMP, LIPID #### [facility] [address] [place] [address] Dr. Kylee Shook #2.9 103/ulNormal1.4-6.5The [facility] on above:Performed By: #### CMP, LIPID #### [facility] [address] [place] [address] Dr. Kylee Martinutrophils/100 WBC (Bld)52.7 %Mpvoqy02.0-75.0The [facility] on above:Performed By: #### CMP, LIPID #### [facility] [address] [place] [address] Dr. Kylee BunchPLT213 103/sjDznpud103-914Tnw [facility] on above: Performed By: #### CMP, LIPID #### [facility] [address] [place] [address] Dr. Kylee BunchRBC4.41 106/ulCritically low4.70-6.10The [facility] on above:Performed By: #### CMP, LIPID #### [facility] [address] [place] [address] Dr. Kylee BunchWBC5.4 103/ulNormal4.0-11.0The [facility] on above: Performed By: #### CMP, LIPID #### [facility] [address] [place] [address] Dr. Kylee JhaID PROFILEon [id number]-HDL RATIO NORMSEE BELOWNormalThe [facility]bury HospitalComment on above:Result Comment: 3.3 - 4.4 LOW RISK 4.4 - 7.1 AVERAGE RISK 7.1 - 11.0 MODERATE RISK >11.0 HIGH RISKPerformed By: #### CMP, LIPID #### [facility] [address] [address] [address] Kylee BunchCholesterol [Mass/Vol]166 mg/dLNormal<=200[facility] Comment on above:Performed By: #### CMP, LIPID #### [facility] [address] [address] [address] Kylee BunchCholesterol in HDL [Mass/Vol]71 mg/dLCritically rssg44-98WizDiley Ridge Medical CenterComment on above:Performed By: #### CMP, LIPID #### [facility] [address] [address] [address] Kylee BunchCholesterol in LDL [Mass/Vol]84.8 mg/dLSelect Medical Specialty Hospital - YoungstownComment on above:Performed By: #### CMP, LIPID #### [facility] [address] [address] [address] Kylee Garyestersalinas.total/Cholesterol in HDL [Mass ratio]2.3 {ratio} NormalDiley Ridge Medical CenterComment on above:Performed By: #### CMP, LIPID #### [facility] [address] [place] [address] Dr. Kylee BunchHDL NORMAL> or = 60 mg/dl - LOW CARDIOVASCULAR RISK <40 mg/dl - HIGH CARDIOVASCULAR RISKSelect Medical Specialty Hospital - YoungstownComment on above:Performed By: #### CMP, LIPID #### [facility] [address] [place] [address] Dr. Kylee BunchLDL CALC NORMALSEE BELOWSelect Medical Specialty Hospital - YoungstownComment on above:Result Comment: <100 mg/dl OPTIMAL 100 - 129 mg/dl NEAR OR ABOVE OPTIMAL 130 - 159 mg/dl BORDERLINE HIGH 160 - 189 mg/dl HIGH >190 mg/dl VERY HIGH Performed By: #### CMP, LIPID #### [facility] [address] [place] [address] Dr. Kylee BunchTriglyceride [Mass/Vol]51 mg/dLNormal<=150The [facility] Comment on above:Performed By: #### CMP, LIPID #### [facility] [address] [place] [address] Dr. Kylee BunchVLDL CALC10.2 mg/dLNormalThe [facility] HospitalComment on above: Performed By: #### CMP, LIPID #### [facility] [address] [place] [address] Dr. Kylee HernandezALBUMIN, RAND URon 87-94-1363sUDK3.0 mg/LNormal<=30.0The [facility] HospitalComment on above:Performed By: #### MALBR #### [facility] [address] [place] [address] Dr. Kylee BunchPROF 14(COMP METB)on 71-05-7612Nwhdnaz [Mass/Vol]3.5 g/dLNormal 3.4-5.0The [facility] HospitalComment on above:Performed By: #### CMP, LIPID #### [facility] [address] [place] [address] Dr. Kylee BunchAlbumin/Globulin [Mass ratio]1.0 {ratio}NormalThe [facility] HospitalComment on above:Performed By: #### CMP, LIPID #### [facility] [address] [place] [address] Dr. Kylee Forman [Catalytic activity/Vol]97 U/OQvisyy20-191Lme The [facility] HospitalComment on above:Performed By: #### CMP, LIPID #### [facility] [address] [place] [address] Dr. Kylee Shelton [Catalytic activity/Vol]29 U/CHabeix87-08Wak The [facility] HospitalComment on above:Performed By: #### CMP, LIPID #### [facility] [address] [place] [address] Dr. Kylee Warner gap [Moles/Vol]6.7 mmol/LNormalThe The [facility] HospitalComment on above:Performed By: #### CMP, LIPID #### [facility] [address] [address] [address] Kylee BunchAST [Catalytic activity/Vol]28 U/STrrhme74-79Hti The [facility] HospitalComment on above:Performed By: #### CMP, LIPID #### [facility] [address] [address] [address] Kylee BunchBilirubin [Mass/Vol]0.4 mg/dLNormal0.2-1.0The [facility] Comment on above:Performed By: #### CMP, LIPID #### [facility] [address] [address] [address] Kylee BunchCalcium [Mass/Vol]8.9 mg/dLNormal8.5-10.1The [facility] Comment on above:Performed By: #### CMP, LIPID #### [facility] [address] [address] [address] Kylee BunchChloride [Moles/Vol]99 mmol/ZTnkqme22-335Hdj [facility] Comment on above:Performed By: #### CMP, LIPID #### [facility] [address] [address] [address] Kylee BunchCO2 [Moles/Vol]33.4 mmol/LCritically high21.0-32.0The The [facility] HospitalComment on above:Performed By: #### CMP, LIPID #### [facility] [address] [address] [address] Kylee BunchCreatinine [Mass/Vol]0.80 mg/dLNormal0.70-1.30The [facility] HospitalComment on above:Performed By: #### CMP, LIPID #### [facility] [address] [place] [address] Dr. Kylee SteinbergGFR-AF JAMAICAN>60Normal>=60The The [facility] HospitalComment on above:Performed By: #### CMP, LIPID #### [facility] [address] [place] [address] Dr. Kylee SteinbergGFR-NON AF JAMAICAN>60Normal>=60The [facility] HospitalComment on above:Performed By: #### CMP, LIPID #### [facility] [address] [address] [address] Kylee BunchGlobulin (S) [Mass/Vol]3.4 g/dLNormWVUMedicine Barnesville HospitalComment on above:Performed By: #### CMP, LIPID #### [facility] [address] [address] [address] Kylee BunchGlucose [Mass/Vol]188 mg/dLCritically roim58-006Kye The [facility] HospitalComment on above:Performed By: #### CMP, LIPID #### [facility] [address] [place] [address] Dr. Kylee BunchPotassium [Moles/Vol]4.1 mmol/LNormal3.5-5.1The [facility] Comment on above:Performed By: #### CMP, LIPID #### [facility] [address] [place] [address] Dr. Kylee BunchProtein [Mass/Vol]6.9 g/dLNormal6.4-8.2The [facility] Comment on above:Performed By: #### CMP, LIPID #### [facility] [address] [place] [address] Dr. Kylee BunchSodium [Moles/Vol]135 mmol/LCritically bqv126-103Ajd The [facility] HospitalComment on above:Performed By: #### CMP, LIPID #### [facility] [address] [place] [address] Dr. Kylee BunchUrea nitrogen [Mass/Vol]15.0 mg/dLNormal7.0-18.0The [facility] HospitalComment on above:Performed By: #### CMP, LIPID #### [facility] [address] [place] [address] Dr. Kylee Saenz nitrogen/Creatinine [Mass ratio]18.8 mg/mgNoMagruder Memorial HospitalComment on above:Performed By: #### CMP, LIPID #### [facility] [address] [place] [address] Dr. Kylee BunchUA RANDOM W/MICROSCOPICon 17-15-5891ERITBDYWJHNM SEENNormalNONE SEENDiley Ridge Medical CenterComment on above:Performed By: #### CMP, LIPID #### [facility] [address] [address] [address] Kylee BunchBilirubin Ql (U)NegativeNormalNEGProMedica Memorial Hospital Comment on above:Performed By: #### CMP, LIPID #### [facility] [address] [address] [address] Kylee Perry SEENNormalNONE SEENDiley Ridge Medical CenterComment on above:Performed By: #### CMP, LIPID #### [facility] [address] [address] [address] Kylee BunchClarity (U)CLEARNormalCLEARDiley Ridge Medical CenterComment on above: Performed By: #### CMP, LIPID #### [facility] [address] [place] [address] Dr. Kylee Kowalskilor (U)LT. YELLOWNormalYELLOWDiley Ridge Medical CenterComment on above:Performed By: #### CMP, LIPID #### [facility] [address] [place] [address] Dr. Kylee BunchCrystals LM Nom (Urine sed)NONE SEENNormalNONE SEENDiley Ridge Medical CenterComment on above:Performed By: #### CMP, LIPID #### [facility] [address] [place] [address] Dr. Pichardo ChangEpithelial cells LM Ql (Urine sed)FEWAbnormalNONE SEEN /RAREDiley Ridge Medical CenterComment on above:Performed By: #### CMP, LIPID #### [facility] [address] [address] [address] Kylee BunchGlucose Ql (U)NegativeNormalNEGProMedica Memorial HospitalComment on above:Performed By: #### CMP, LIPID #### [facility] [address] [place] [address] Dr. Kylee BunchHemoglobin Ql (U)TRACE-LYSEDAbmetropolitan saint louis psychiatric centeralNEGProMedica Memorial Hospital Comment on above:Performed By: #### CMP, LIPID #### [facility] [address] [address] [address] Kylee Barrera Ql (U)NegativeNormalNEGATIVEThe [facility] HospitalComment on above:Performed By: #### CMP, LIPID #### [facility] [address] [address] [address] Kylee BunchLEUKOCYTESNegativeNormalNEGATIVEThe [facility] HospitalComment on above:Performed By: #### CMP, LIPID #### [facility] [address] [address] [address] Kylee AguirreCOUSVERO SEENNormalNONE SEENDiley Ridge Medical CenterComment on above:Performed By: #### CMP, LIPID #### [facility] [address] [address] [address] Kylee Dooley Ql (U)NegativeNormalNEGATIVEThe [facility] HospitalComment on above:Performed By: #### CMP, LIPID #### [facility] [address] [place] [address] Dr. Kylee BunchpH (U)6.0 [pH]Normal5-9The The [facility] HospitalComment on above: Performed By: #### CMP, LIPID #### [facility] [address] [address] [address] Kylee BunchYmzepXGS5-7Itfjinvv7-5Rym [facility] on above:Performed By: #### CMP, LIPID #### [facility] [address] [place] [address] Dr. Kylee BunchSPEC GRAVITY1.674Kxkjwf0.005-<=1.025The [place] [facility] Hospitalment on above:Performed By: #### CMP, LIPID #### [facility] [address] [place] [address] Dr. Kylee Rodas PROTEINNegativeNormalNEGATIVE/ TRACEThe [facility] on above:Performed By: #### CMP, LIPID #### [facility] [address] [place] [address] Dr. Kylee Correiabilsandhya Qn (U)0.2 {Gemini'U}/dLNormal0.2 - 1.0The [facility] HospitalComment on above:Performed By: #### CMP, LIPID #### [facility] [address] [place], [place] [address] Dr. Kylee العلي SEENNormalNONE SEENDiley Ridge Medical CenterComment on above: Performed By: #### CMP, LIPID #### [facility] [address] [place], [place] [address] Dr. Kylee Christiansen Metab w/rfx MGon 01-07-2022(cont.)NormalMarymount HospitalComment on above:Result Comment: Average GFR for 70 or more years old: 75 mL/min/1.73sq m Chronic Kidney Disease: <60 mL/min/1.73sq m Kidney failure: <15 mL/min/1.73sq m eGFR calculated using average adult body mass. Additional eGFR calculator available at: http://www.Smarp Oy/multiple_crcl_2012.htmPerformed By: #### CDP, MELVIN, BMPX, MG, IPF #### [facility] [address] [place] [address] [employer] Supervisor: Francisco J Fonseca MDAnion gap [Moles/Vol]9 mmol/LNormal9-17Mary[facility] HospitalComment on above:Performed By: #### CDP, MELVIN, BMPX, MG, IPF #### [facility] [address] [place] [address] [employer] Supervisor: MARLENY Brandonalcium [Mass/Vol]7.8 mg/dLLow8.6-10.4Mary[facility] HospitalComment on above:Performed By: #### CDP, MELVIN, BMPX, MG, IPF #### [facility] [address] [place] [address] [employer] Supervisor: MARLENY Brandonhloride [Moles/Vol]102 mmol/NNdacct89-824LwveeMarymount HospitalComment on above:Performed By: #### CDP, MELVIN, BMPX, MG, IPF #### [facility] [address] [place] [address] [employer] Supervisor: Francisco J Fonseca MDCO2 [Moles/Vol]24 mmol/AUixllh82-26PvdadMarymount HospitalComment on above:Performed By: #### CDP, MELVIN, BMPX, MG, IPF #### [facility] [address] [place] [address] [employer] Supervisor: Francisco J Fonseca MDCreatinine [Mass/Vol]0.49 mg/dLLow0.70-1.20Mary[facility] HospitalComment on above:Performed By: #### CDP, MELVIN, BMPX, MG, IPF #### [facility] [address] [place] [address] [employer] Supervisor: Francisco J Fonseca MDGFR, Amer>60Normal>60Mary[facility] HospitalComment on above:Performed By: #### CDP, MELVIN, BMPX, MG, IPF #### [facility] [address] [place] [address] [employer] Supervisor: Francisco J Fonseca MDGFR,non Amer>60Normal>60Mary[facility] HospitalComment on above:Performed By: #### CDP, MELVIN, BMPX, MG, IPF #### [facility] [address] [place] [address] [employer] Supervisor: Francisco J Fonseca MDGlucose [Mass/Vol]79 mg/qAWacqnm98-98Eqhvg [facility] Northern CaliforniaComment on above:Performed By: #### CDP, MELVIN, BMPX, MG, IPF #### [facility] [address] [place] [address] [employer] Supervisor: Francisco J Fonseca MDPotassium [Moles/Vol]3.5 mmol/LLow3.7-5.3MEastern Plumas District HospitalComment on above:Performed By: #### CDP, MELVIN, BMPX, MG, IPF #### [facility] [address] [place] [address] [employer] Supervisor: MEIR Brandonodium [Moles/Vol]135 mmol/MLhyuxe931-239KbywuMarymount HospitalComment on above:Performed By: #### CDP, MELVIN, BMPX, MG, IPF #### [facility] [address] [place] [address] [employer] Supervisor: Francisco J Fonseca MDUrea nitrogen [Mass/Vol]7 mg/dLLow8-23Mary[facility] HospitalComment on above:Performed By: #### CDP, MELVIN, BMPX, MG, IPF #### [facility] [address] [place] [address] [employer] Supervisor: MARLENY Brandon with Diffon 78-91-8725Lyx. Basophil0.00 k/uL Normal0.0-0.2[facility] Northern CaliforniaComment on above:Performed By: #### CDP #### [address] [address] [employer] Supervisor: Vidhya Brandon.Imm.Granulocyte0.00 k/uLNormal0.00-0.30Mary[facility] HospitalComment on above:Performed By: #### CDP #### [facility] [employer] [address] [place] [address] [employer] Supervisor: Vidhya Brandon.Neutrophil (Seg)8.33 k/uLHigh1.8-7.7MerPalomar Medical CenterComment on above:Performed By: #### CDP #### [facility] [address] [place] [address] [employer] Supervisor: Francisco J Fonseca MDEosinophils (Bld) [#/Vol]0.11 10*3/uLNormal 0.0-0.4Mary[facility] HospitalComment on above:Performed By: #### CDP #### [facility] [employer] [address] [place] [address] [employer] Supervisor: Fracnisco J Fonseca MDLymphocytes (Bld) [#/Vol]1.22 10*3/uLNormal 1.0-4.8Mary[facility] HospitalComment on above:Performed By: #### CDP #### [address] [address] [employer] Supervisor: MARK Brandononocytes (Bld) [#/Vol]1.44 10*3/uLHigh0.1-0.8 [facility] HospitalComment on above:Performed By: #### CDP #### [address] [address] [employer] Supervisor: Francisco J Fonseca MDNeutrophil (Seg)75 %Riob56-52RyaxtMarymount HospitalComment on above:Performed By: #### CDP #### [address] [address] [employer] Supervisor: Francisco J Fonseca MDNRBC Automated0.0 per 100 WBCNormal0.0Marymount HospitalComment on above:Performed By: #### CDP #### [address] [address] [employer] Supervisor: Francisco J Fonseca MDWBC (Bld) [#/Vol]11.1 10*3/uLNormal3.5-11.3MEastern Plumas District HospitalComment on above:Performed By: #### CDP #### [address] [address] [employer] Supervisor: Francisco J Fonseca MDBasophils/100 WBC (Bld)0 %Normal0-2BON [facility] HOSPITALComhills & dales general hospital on above:Performed By: #### CDP #### [address] [address] [employer] Supervisor: Francisco J Fonseca MDEosinophils/100 WBC (Bld)1 %Normal1-4BON [facility] POINTE HOSPITALComment on above:Performed By: #### CDP #### [address] [address] [employer] Supervisor: Toan Brandonmature granulocytes/100 WBC (Bld)0 %Pwxftj3ZSA [facility] HOSPITALComment on above:Performed By: #### CDP #### [address] [address] [employer] Supervisor: Francisco J Fonseca MDLymphocytes/100 WBC (Bld)11 %Jks31-25UNS [facility] HOSPITALComment on above:Performed By: #### CDP #### [address] [address] [employer] Supervisor: MARK Brandononocytes/100 WBC (Bld)13 %High1-7BON [facility] POINTE HOSPITALComment on above:Performed By: #### CDP #### [address] [address] [employer] Supervisor: MARK Brandonorphology Watler (Bld) [Interp]ANISOCYTOSIS PRESENTNormalBON [facility]TE HOSPITALComhills & dales general hospital on above:Result Comment: MICROCYTOSIS PRESENT 1+ TARGET CELLS 1+ ACANTHOCYTESPerformed By: #### CDP #### [address] [address] [employer] Supervisor: Francisco J Fonseca MDErythrocyte distribution width (RBC) [Ratio]17.3 %High11.8-14.4[facility] Northern CaliforniaComment on above:Performed By: #### CDP #### [address] [address] [employer] Supervisor: Francisco J Fonseca MDHematocrit (Bld) [Volume fraction]36.6 %Low 40.7-50.3[facility] Northern CaliforniaComment on above:Performed By: #### CDP #### [address] [address] [employer] Supervisor: Francisco J Fonseca MDHemoglobin (Bld) [Mass/Vol]13.0 g/dLNormal 13.0-17.0Mary[facility] HospitalComment on above:Performed By: #### CDP #### [address] [address] [employer] Supervisor: MARK BrandonCH (RBC) [Entitic mass]26.5 joAejsrg18.2-33.5 [facility] HospitalComment on above:Performed By: #### CDP #### [address] [address] [employer] Supervisor: MARK BrandonCHC (RBC) [Mass/Vol]35.5 g/gPXyxk99.4-34.8Mary[facility] HospitalComment on above:Performed By: #### CDP #### [address] [address] [employer] Supervisor: MARK BrandonCV (RBC) [Entitic vol]74.5 fLLow82.6-102.9Marymount HospitalComment on above:Performed By: #### CDP #### [address] [address] [employer] Supervisor: Isra Brandontelet CountSee Reflexed IPF ResultNormal 138-453Marymount HospitalComment on above:Performed By: #### CDP #### [address] [address] [employer] Supervisor: LEIGH BrandonBC (Bld) [#/Vol]4.91 10*6/uLNormal4.21-5.77 [facility] HospitalComment on above:Performed By: #### CDP #### [address] [address] [employer] Supervisor: Francisco J Fonseca MDLaboratory - Chemistry and Chemistry - challenge on 29-28-8913Bixqosxoj [Mass/Vol]1.5 mg/dLLow1.6 - 2.6 mg/dLBON SECOURS MERCY HEALTHAnion gap [Moles/Vol]9 mmol/L9 - 17 mmol/LBON SECOURS MERCY HEALTHCalcium [Mass/Vol]7.8 mg/dLLow8.6 - 10.4 mg/dLBON SECOURS MERCY HEALTHChloride [Moles/Vol]102 mmol/L98 - 107 mmol/LBON SECOURS MERCY HEALTHCO2 [Moles/Vol]24 mmol/L20 - 31 mmol/LBON SECOURS MERCY HEALTHCreatinine [Mass/Vol]0.49 mg/dLLow 0.70 - 1.20 mg/dLBON SECOURS MERCY HEALTHGFR/1.73 sq M.predicted MDRD (S/P/Bld) [Vol rate/Area][facility] MEDICAL CENTERJAM Technologies HEALTHComment on above:Average GFR for 70 or more years old: 75 mL/min/1.73sq m Chronic Kidney Disease: <60 mL/min/1.73sq m Kidney failure: <15 mL/min/1.73sq m eGFR calculated using average adult body mass. Additional eGFR calculator available at: http://www.Smarp Oy/multiple_crcl_2011.htm Glucose [Mass/Vol]79 mg/dL70 - 99 mg/dLBON SECOURS MERCY HEALTHPhosphate [Mass/Vol]2.3 mg/dLLow2.5 - 4.5 mg/dLBON [facility]OURS MERCY HEALTHPotassium [Moles/Vol]3.5 mmol/LLow3.7 - 5.3 mmol/LBON SECOURS MERCY HEALTHSodium [Moles/Vol]135 mmol/L135 - 144 mmol/LBON SECOURS [facility]IC[facility]AL HOSPITALY HEALTHUrea nitrogen (BldV) [Mass/Vol]7 mg/dLLow8 - 23 mg/dLBON SECOURS LANCASTER MUNICIPAL HOSPITALY HEALTHLaboratory - Hematology and Cell countson 40-89-2743Zlmejiwvy (Bld) [#/Vol]0.00 10*3/uLBON SECOURS MERCY HEALTHHematocrit (Bld) [Volume fraction]36.6 %Low40.7 - 50.3 %BON SECOURS Club 42cmY HEALTHHemoglobin (Bld) [Mass/Vol]13.0 g/dL13.0 - 17.0 g/dLBON SECMEMORIAL HOSPITALH (RBC) [Entitic mass]26.5 pg25.2 - 33.5 pgINOVA LOUDOUN HOSPITALHC (RBC) [Mass/Vol]35.5 g/lEUolz15.4 - 34.8 g/dLBON SECMEMORIAL HOSPITALV (RBC) [Entitic vol]74.5 fLLow82.6 - 102.9 fLDOMINION HOSPITAL Morphology Walter (Bld) [Interp]MICROCYTOSIS PRESENTBON [facility] Morphology Walter (Bld) [Interp]1+ TARGET CELLSDOMINION HOSPITALMorphology Walter (Bld) [Interp]1+ ACANTHOCYTESBON [facility] CLINIC SOUTH POINTE HOSPITALPlatelet distribution width (Bld) [Ratio]17.3 %High11.8 - 14.4 %DOMINION HOSPITALPlatelets (Bld) [#/Vol]See Reflexed IPF ResultBON C[facility] CLINIC SOUTH POINTE HOSPITALRBC (Bld) [#/Vol] 4.91 10*6/uL4.21 - 5.77 m/uLDOMINION HOSPITALSegmented neutrophils/100 WBC (Bld)75 %High36 - 66 %DOMINION HOSPITALWBC (Bld) [#/Vol]11.1 10*3/uL [facility]INION HOSPITALMagnesiumon 13-98-7252Mkwgzewkn [Mass/Vol]1.5 mg/dLLow 1.6-2.6[facility] Northern CaliforniaComment on above:Performed By: #### CDP #### [facility] [address] [id number] [employer] Supervisor: Maggie Brandon Panel Informationon 79-47-1292Rhkadjtx Eos # 0.11BON SECASHTABULA GENERAL HOSPITALAbsolute Immature Granulocyte0.00BON [facility] HOSPITALAbsolute Lymph #1.22BON SECASHTABULA GENERAL HOSPITALAbsolute [place] #1.44HighDICKENSON COMMUNITY [facility]OSPITAL HEALTHInterpretation and review of laboratory resultsAbnormalBON [facility] POINTE HOSPITALNRBC Automated0.00.0 per 100 WBCBON CLEVELAND CLINIC SOUTH POINTE HOSPITALSegs Absolute8.33HighBON SECRICHLAND HOSPITALPlatelet, Bvthrvwkakpf683SDW [facility] POINTE HOSPITALComment on above:ORDERED BY LABPlatelet, Immature Exaoqlci47.1 %1.1 - 10.3 %BON [facility] POINTE HOSPITALComment on above: ORDERED BY LABDOMINION HOSPITALInterpretation and review of laboratory resultsAbnormalBON [facility] HEALTHGFR >60>60 mL/minBON [facility]TE HOSPITALGFR Non->60>60 mL/minDOMINION HOSPITALInterpretation and review of laboratory results AbnormalBON [facility] HEALTHPLT, Immature Fract.on [id number], Fluoresc.230 k/gCKamqfm608-601XdiijMarymount HospitalComment on above:Result Comment: ORDERED BY LABPerformed By: #### CDP #### [facility] [employer] [employer] [address] [place] [address] [employer] Supervisor: SUSANNAH Brandon, Immature Fract.10.1 %Normal1.1-10.3MEastern Plumas District HospitalComment on above:Result Comment: ORDERED BY LAB Performed By: #### CDP #### Arden Reed [address] [place], [place] [id number] [employer] Supervisor: Eliane Brandonsphokhari, Inorg.on 41-10-1986Taddqgtwvr, Inorg.2.3 mg/dLLow2.5-4.5Marymount HospitalComment on above: Performed By: #### CDP, MELVIN, BMPX, MG, IPF #### [facility] [employer] [address] [place] [address] [employer] Supervisor: Rubina Brandon Metab w/rfx MGon 01-06-2022(cont.)Normal Marymount HospitalComment on above:Result Comment: Average GFR for 70 or more years old: 75 mL/min/1.73sq m Chronic Kidney Disease: <60 mL/min/1.73sq m Kidney failure: <15 mL/min/1.73sq m eGFR calculated using average adult body mass. Additional eGFR calculator available at: http://www.[employer].BlueCava/multiple_crcl_2012.htmPerformed By: #### CDP, MELVIN, BMPX, IPF #### [facility] [employer] [address] [place] [address] [employer] Supervisor: Francisco J Fonseca MDAnion gap [Moles/Vol]11 mmol/LNormal9-17Marymount HospitalComment on above:Performed By: #### CDP, MELVIN, BMPX, IPF #### Arden Reed [address] [place] [address] [employer] Supervisor: Francisco J Fonseca MDCalcium [Mass/Vol]7.7 mg/dLLow8.6-10.4Marymount HospitalComment on above:Performed By: #### CDP, MELVIN, BMPX, IPF #### Arden Reed [address] [place] [address] [employer] Supervisor: Francisco J Fonseca MDChloride [Moles/Vol]99 mmol/PKitycj72-388XckzrMarymount HospitalComment on above:Performed By: #### CDP, MELVIN, BMPX, IPF #### Arden Reed [address] [place] [address] [employer] Supervisor: Francisco J Fonseca MDCO2 [Moles/Vol]23 mmol/IHlzqgw82-50SmbotMarymount HospitalComment on above:Performed By: #### CDP, MELVIN, BMPX, IPF #### [employer] [facility] [employer] [address] [place] [address] [employer] Supervisor: Francisco J Fonseca MDCreatinine [Mass/Vol]0.50 mg/dLLow0.70-1.20Marymount HospitalComment on above:Performed By: #### CDP, MELVIN, BMPX, IPF #### [facility] [address] [place] [address] [employer] Supervisor: Francisco J Fonseca MDGFR, Amer>60Normal>60[facility] Northern CaliforniaComment on above:Performed By: #### CDP, MELVIN, BMPX, IPF #### [facility] [address] [place] [address] [employer] Supervisor: Francisco J Fonseca MDGFR,non Amer>60Normal>60MerPalomar Medical CenterComment on above:Performed By: #### CDP, MELVIN, BMPX, IPF #### [facility] [address] [place] [address] [employer] Supervisor: Francisco J Fonseca MDGlucose [Mass/Vol]149 mg/rKLcvu19-90UfufwEastern Plumas District HospitalComment on above:Performed By: #### CDP, MELVIN, BMPX, IPF #### [facility] [address] [place] [address] [employer] Supervisor: DENISE Brandonotassium [Moles/Vol]3.6 mmol/LLow3.7-5.3MEastern Plumas District HospitalComment on above:Performed By: #### CDP, MELVIN, BMPX, IPF #### [facility] [address] [place] [address] [employer] Supervisor: MEIR Brandonodium [Moles/Vol]133 mmol/GYpf717-483CdjykMarymount HospitalComment on above:Performed By: #### CDP, MELVIN, BMPX, IPF #### [facility] [address] [place] [address] [employer] Supervisor: Francisco J Fonseca MDUrea nitrogen [Mass/Vol]11 mg/dLNormal8-23MerPalomar Medical CenterComment on above:Performed By: #### CDP, MELVIN, BMPX, IPF #### [facility] [address] [place] [address] [employer] Supervisor: KRISTOFER Brandon with Diffon 77-88-0086Ije. Basophil0.03 k/uL Normal0.00-0.20Marymount HospitalComment on above:Performed By: #### CDP, MELVIN, BMPX, IPF #### [facility] [address] [place] [address] [employer] Supervisor: Vidhya Brandon.Imm.Granulocyte0.05 k/uLNormal0.00-0.30Marymount HospitalComment on above:Performed By: #### CDP, MELVIN, BMPX, IPF #### [employer] [facility] [address] [place] [address] [employer] Supervisor: Vidhya Brandon.Neutrophil (Seg)11.21 k/uLHigh1.50-8.10Marymount HospitalComment on above:Performed By: #### CDP, MELVIN, BMPX, IPF #### [employer] [facility] [address] [place] [address] [employer] Supervisor: Francisco J Fonseca MDBasophils/100 WBC (Bld)0 %Normal0-2MEastern Plumas District HospitalComment on above:Performed By: #### CDP, MELVIN, BMPX, IPF #### [employer] [facility] [employer] [address] [place] [address] [employer] Supervisor: Francisco J Fonseca MDEosinophils (Bld) [#/Vol]0.09 10*3/uLNormal 0.00-0.44Marymount HospitalComment on above:Performed By: #### CDP, MELVIN, BMPX, IPF #### [employer] [facility] [address] [place] [address] [employer] Supervisor: MAXIM Brandonosinophils/100 WBC (Bld)1 %Normal1-4Marymount HospitalComment on above:Performed By: #### CDP, MELVIN, BMPX, IPF #### [address] [address] [employer] Supervisor: Francisco J Fonseca MDErythrocyte distribution width (RBC) [Ratio]18.4 %High11.8-14.4Marymount HospitalComment on above:Performed By: #### CDP, MELVIN, BMPX, IPF #### [place] [address] [employer] Supervisor: Francisco J Fonseca MDHematocrit (Bld) [Volume fraction]38.2 %Low 40.7-50.3Mgrand lake [facility] memorial hospitaly [facility] Northern CaliforniaComment on above:Performed By: #### CDP, MELVIN, BMPX, IPF #### [place] [address] [employer] Supervisor: Francisco J Fonseca MDHemoglobin (Bld) [Mass/Vol]13.2 g/dLNormal 13.0-17.0Marymount HospitalComment on above:Performed By: #### CDP, MELVIN, BMPX, IPF #### [place] [address] [employer] Supervisor: Francisco J Fonseca MDImmature granulocytes/100 WBC (Bld)0 %Normal0 Marymount HospitalComment on above:Performed By: #### CDP, MELVIN, BMPX, IPF #### [place] [address] [employer] Supervisor: Francisco J Fonseca MDLymphocytes (Bld) [#/Vol]0.82 10*3/uLLow 1.10-3.70Marymount HospitalComment on above:Performed By: #### CDP, MELVIN, BMPX, IPF #### [place] [address] [employer] Supervisor: Jeremie Brandonmphocytes/100 WBC (Bld)6 %Qsj08-32AyhuqMarymount HospitalComment on above:Performed By: #### CDP, MELVIN, BMPX, IPF #### [facility] [address] [place] [address] [employer] Supervisor: MARK BrandonCH (RBC) [Entitic mass]26.7 rzTyohqj80.2-33.5 Marymount HospitalComment on above:Performed By: #### CDP, MELVIN, BMPX, IPF #### [facility] [address] [place] [address] [employer] Supervisor: MARK BrandonCHC (RBC) [Mass/Vol]34.6 g/hFTgopip78.4-34.8 Marymount HospitalComment on above:Performed By: #### CDP, MELVIN, BMPX, IPF #### [facility] [address] [place] [address] [employer] Supervisor: MARK BrandonCV (RBC) [Entitic vol]77.2 fLLow82.6-102.9Marymount HospitalComment on above:Performed By: #### CDP, MELVIN, BMPX, IPF #### [facility] [address] [place] [address] [employer] Supervisor: MARK Brandononocytes (Bld) [#/Vol]1.14 10*3/uLNormal 0.10-1.20Marymount HospitalComment on above:Performed By: #### CDP, MELVIN, BMPX, IPF #### [facility] [address] [place] [address] [employer] Supervisor: MARK Brandononocytes/100 WBC (Bld)9 %Normal3-12Marymount HospitalComment on above:Performed By: #### CDP, MELVIN, BMPX, IPF #### [facility] [address] [place] [address] [employer] Supervisor: Francisco J Fonseca MDNeutrophil (Seg)84 %Ktrl63-85KiyktMarymount HospitalComment on above:Performed By: #### CDP, MELVIN, BMPX, IPF #### [facility] [address] [place] [address] [employer] Supervisor: Francisco J Fonseca MDNRDENISE Automated0.0 per 100 WBCNormal0.0Marymount HospitalComment on above:Performed By: #### CDP, MELVIN, BMPX, IPF #### [address] [address] [employer] Supervisor: Isra Brandontelet CountSee Reflexed IPF ResultNormal 138-453Marymount HospitalComment on above:Performed By: #### CDP, MELVIN, BMPX, IPF #### [address] [address] [employer] Supervisor: LEIGH BrandonBC (Bld) [#/Vol]4.95 10*6/uLNormal4.21-5.77 Marymount HospitalComment on above:Performed By: #### CDP, MELVIN, BMPX, IPF #### [address] [address] [employer] Supervisor: YOLA Brandon morphology finding Nom (Bld)ANISOCYTOSIS PRESENTNormalMarymount HospitalComment on above:Result Comment: MICROCYTOSIS PRESENTPerformed By: #### CDP, MELVIN, BMPX, IPF #### [address] [address] [employer] Supervisor: ENRIQUE BrandonBC (Bld) [#/Vol]13.3 10*3/uLHigh3.5-11.3MEastern Plumas District HospitalComment on above:Performed By: #### CDP, MELVIN, BMPX, IPF #### [address] [address] [employer] Supervisor: Francisco J Fonseca MDLaboratory - Chemistry and Chemistry - challenge on [id number] gap [Moles/Vol]11 mmol/L9 - 17 mmol/LBON [facility]OU[facility] Calcium [Mass/Vol]7.7 mg/dLLow8.6 - 10.4 mg/dLBON [facility]OURS MERCY HEALTHChloride [Moles/Vol]99 mmol/L98 - 107 mmol/LBON [facility]OURS MERCY HEALTHCO2 [Moles/Vol]23 mmol/L20 - 31 mmol/LBON [facility]OURS MERCY HEALTHCreatinine [Mass/Vol]0.5 mg/dLLow 0.70 - 1.20 mg/dLBON SECOURS MERCY HEALTHGFR/1.73 sq M.predicted MDRD (S/P/Bld) [Vol rate/Area][facility]Y HEALTHComment on above:Average GFR for 70 or more years old: 75 mL/min/1.73sq m Chronic Kidney Disease: <60 mL/min/1.73sq m Kidney failure: <15 mL/min/1.73sq m eGFR calculated using average adult body mass. Additional eGFR calculator available at: http://www.[employer]marp [employer]y/multiple_crcl_2012.htm Glucose [Mass/Vol]149 mg/hDWflz63 - 99 mg/dLBON SECOURS MERCY HEALTHPhosphate [Mass/Vol]2.5 mg/dL2.5 - 4.5 mg/dLBON [facility] MERCY HEALTHPotassium [Moles/Vol] 3.6 mmol/LLow3.7 - 5.3 mmol/LBON SECOURS MERCY HEALTHSodium [Moles/Vol]133 mmol/WBmo933 - 144 mmol/LBON [facility] MERCY HEALTHUrea nitrogen (BldV) [Mass/Vol] 11 mg/dL8 - 23 mg/dLBON SECOURS MERCY HEALTHLaboratory - Hematology and Cell countson 70-21-8755Skzdzsqbr (Bld) [#/Vol]0.03 10*3/uLBON SECOURS MERCY [facility]ALTH Basophils/100 WBC (Bld)0 %0 - 2 %[facility] HEALTHEosinophils/100 WBC (Bld)1 %1 - 4 %[facility] HEALTHHematocrit (Bld) [Volume fraction]38.2 % Low40.7 - 50.3 %[facility]ITALY HEALTHHemoglobin (Bld) [Mass/Vol]13.2 g/dL13.0 - 17.0 g/dLBON SECOU[facility]OS[facility]ITALY HEALTHImmature granulocytes/100 WBC (Bld)0 %0B[facility] MER[facility] HEALTHLymphocytes/100 WBC (Bld)6 %Low24 - 43 %BON SECMEMORIAL HOSPITALH (RBC) [Entitic mass]26.7 pg25.2 - 33.5 pgBON SECOURS [facility]PITALHC (RBC) [Mass/Vol]34.6 g/dL28.4 - 34.8 g/dLBON SECMEMORIAL HOSPITALV (RBC) [Entitic vol]77.2 fLLow82.6 - 102.9 fLHAVASU REGIONAL MEDICAL CENTER SECBEAUREGARD MEMORIAL HOSPITAL HEALTHMonocytes/100 WBC (Bld)9 %3 - 12 %[facility] HEALTHPlatelet distribution width (Bld) [Ratio]18.4 %High11.8 - 14.4 %[facility]ITALY HEALTHPlatelets (Bld) [#/Vol]See Reflexed IPF ResultBON SECOURS LANCASTER MUNICIPAL HOSPITALY HEALTHRBC (Bld) [#/Vol]4.95 10*6/uL4.21 - 5.77 m/uLHAVASU REGIONAL MEDICAL CENTER SECMULTICARE ALLENMORE HOSPITALY HEALTHRBC (Bld) [#/Vol]ANISOCYTOSIS PRESENTDICKENSON COMMUNITY HOSPITAL HEALTHComment on above:MICROCYTOSIS PRESENTSegmented neutrophils/100 WBC (Bld)84 %High36 - 65 %BON SECBEAUREGARD MEMORIAL HOSPITAL HEALTHWBC (Bld) [#/Vol]13.3 10*3/uLHighBON SECMULTICARE ALLENMORE HOSPITALY HEALTHNo Panel Informationon 01-06-2022 Platelet, Usvhvgptjecq065HET SEC[facility]RS [facility]ITALY HEALTHPlatelet, Immature Tcpbztkt54.1 %1.1 - 10.3 %[facility] HEALTHB[facility]ITALY HEALTHAbsolute Eos #0.09 [facility] HEALTHAbsolute Immature Granulocyte0.05B[facility] HEALTHAbsolute Lymph #0.82LowHAVASU REGIONAL MEDICAL CENTER SECOURS MERCY HEALTHAbsolute [place] #1.14B[facility]Y HEALTHInterpretation and review of laboratory resultsAbnormalBON SECOURS [facility]OS[facility]ITALY HEALTHNRBC Automated0.00.0 per 100 WBCHAVASU REGIONAL MEDICAL CENTER SECOURS MERCY HEALTHSegs Dcakygau19.21HighBON SECOURS LAN[facility]IP[facility]OSPITALY HEALTHBON [facility] HEALTHGFR >60>60 mL/minBON [facility] HEALTHGFR Non->60>60 mL/minBON SECMULTICARE ALLENMORE HOSPITALY HEALTHInterpretation and review of laboratory results AbnormalBON [facility]OU[facility] TROYBON [facility] HEALTHPLT, Immature Fract.on 63-92-7366Vwtxvdnd, Fluoresc.252 k/vCZauxxf334-292GrkmsMarymount HospitalComment on above:Performed By: #### CDP, MELVIN, BMPX, IPF #### Arden Reed [address] [place] [address] [employer] Supervisor: SUSANNAH Brandon, Immature Fract.10.1 %Normal1.1-10.3MEastern Plumas District HospitalComment on above:Performed By: #### CDP, MELVIN, BMPX, IPF #### Arden Reed [address] [place] [address] [employer] Supervisor: DENISE Brandonhosphorus, Inorg.on 85-42-7838Zobgjfmosv, Inorg.2.5 mg/dLNormal2.5-4.5Marymount HospitalComment on above: Performed By: #### CDP, MELVIN, BMPX, IPF #### Arden Reed [address] [place] [address] [employer] Supervisor: Ej Brandonc Metab w/rfx MGon 69-48-3031Bcdhigovk [Moles/Vol]3.4 mmol/LLow3.7-5.3MEastern Plumas District HospitalComment on above: Performed By: #### CDP, MELVIN, BMPX, IPF #### Arden Reed [address] [place] [address] [employer] Supervisor: Francisco J Fonseca MDUrea nitrogen [Mass/Vol]14 mg/dLNormal8-23Marymount HospitalComment on above:Performed By: #### CDP, MELVIN, BMPX, IPF #### [facility] [address] [place] [address] [employer] Supervisor: Francisco J Fonseca MDAnion gap [Moles/Vol]12 mmol/LNormal9-17B[facility] HEALTHComment on above:Performed By: #### CDP, MELVIN, BMPX, IPF #### [facility] [address] [place] [address] [employer] Supervisor: Francisco J Fonseca MDCalcium [Mass/Vol]8.1 mg/dLLow8.6-10.4B[facility] HEALTHComment on above:Performed By: #### CDP, MELVIN, BMPX, IPF #### [facility] [address] [place] [address] [employer] Supervisor: Francisco J Fonseca MDChloride [Moles/Vol]98 mmol/HNxyqem02-198NY[facility] HEALTHComment on above:Performed By: #### CDP, MELVIN, BMPX, IPF #### [facility] [address] [place] [address] [employer] Supervisor: Francisco J Fonseca MDCO2 [Moles/Vol]24 mmol/BMnqgku22-56IMI [facility] HEALTHComment on above:Performed By: #### CDP, MELVIN, BMPX, IPF #### [facility] [address] [place] [address] [employer] Supervisor: MARLENY Brandonreatinine [Mass/Vol]0.54 mg/dLLow0.70-1.20B[facility] HEALTHComment on above:Performed By: #### CDP, MELVIN, BMPX, IPF #### [facility] [address] [place] [address] [employer] Supervisor: Francisco J Fonseca MDGlucose [Mass/Vol]122 mg/oVRfyp20-67WNC [facility] HEALTHComment on above:Performed By: #### CDP, MELVIN, BMPX, IPF #### [facility] [address] [place] [address] [employer] Supervisor: Francisco J Fonseca MDSodium [Moles/Vol]134 mmol/NVpv539-104BVP [facility]TE HOSPITALComment on above:Performed By: #### CDP, MELVIN, BMPX, IPF #### [facility] [employer] [address] [place] [address] [employer] Supervisor: Francisco J Fonseca MD(cont.)[facility] Comment on above:Result Comment: Average GFR for 70 or more years old: 75 mL/min/1.73sq m Chronic Kidney Disease: <60 mL/min/1.73sq m Kidney failure: <15 mL/min/1.73sq m eGFR calculated using average adult body mass. Additional eGFR calculator available at: http://www.Smarp [employer]y/multiple_crcl_2012.htmPerformed By: #### CDP, MELVIN, BMPX, IPF #### [address] [address] [employer] Supervisor: Francisco J Fonseca MDAnion gap [Moles/Vol]11 mmol/LNormal9-17Marymount HospitalComment on above:Performed By: #### CDP, MELVIN, BMPX, IPF #### [facility] [employer] [address] [place] [address] [employer] Supervisor: MARLENY Brandonalcium [Mass/Vol]9.1 mg/dLNormal8.6-10.4Marymount HospitalComment on above:Performed By: #### CDP, MELVIN, BMPX, IPF #### [facility] [employer] [address] [place] [address] [employer] Supervisor: Francisco J Fonseca MDChloride [Moles/Vol]99 mmol/HSbclzi33-183LatteMarymount HospitalComment on above:Performed By: #### CDP, MELVIN, BMPX, IPF #### [facility] [address] [place] [address] [employer] Supervisor: Francisco J Madoff, MDCO2 [Moles/Vol]25 mmol/CSoqpvc71-21WdhnqMarymount HospitalComment on above:Performed By: #### CDP, MELVIN, BMPX, IPF #### [facility] [address] [place] [address] [employer] Supervisor: Francisco J Fonseca MDCreatinine [Mass/Vol]0.57 mg/dLLow0.70-1.20Mary[facility] HospitalComment on above:Performed By: #### CDP, MELVIN, BMPX, IPF #### [facility] [address] [place] [address] [employer] Supervisor: Francisco J Fonseca MDGFR, Amer>60Normal>60Marymount HospitalComment on above:Performed By: #### CDP, MELVIN, BMPX, IPF #### [facility] [address] [place] [address] [employer] Supervisor: ARTURO Brandon,non Amer>60Normal>60Marymount HospitalComment on above:Performed By: #### CDP, MELVIN, BMPX, IPF #### [facility] [address] [place] [address] [employer] Supervisor: Francisco J Fonseca MDGlucose [Mass/Vol]129 mg/dVPzaw83-42Ijhsc [facility] Northern CaliforniaComment on above:Performed By: #### CDP, MELVIN, BMPX, IPF #### [facility] [address] [place] [address] [employer] Supervisor: Francisco J Fonseca MDPotassium [Moles/Vol]3.5 mmol/LLow3.7-5.3Mgrand [facility] hospitaly [facility] Northern CaliforniaComment on above:Performed By: #### CDP, MELVIN, BMPX, IPF #### [facility] [address] [place] [address] [employer] Supervisor: MEIR Brandonodium [Moles/Vol]135 mmol/KVzdpft359-072ZxyxqMarymount HospitalComment on above:Performed By: #### CDP, MELVIN, BMPX, IPF #### [facility] [address] [place] [address] [employer] Supervisor: Francisco J Fonseca MDUrea nitrogen [Mass/Vol]15 mg/dLNormal8-23Mary[facility] HospitalComment on above:Performed By: #### CDP, MELVIN, BMPX, IPF #### [facility] [address] [place] [address] [employer] Supervisor: Francisco J Fonseca MD(cont.)[facility] Comment on above:Result Comment: Average GFR for 70 or more years old: 75 mL/min/1.73sq m Chronic Kidney Disease: <60 mL/min/1.73sq m Kidney failure: <15 mL/min/1.73sq m eGFR calculated using average adult body mass. Additional eGFR calculator available at: http://www.[employer].BlueCava/multiple_crcl_2012.htmPerformed By: #### CDP, MELVIN, BMPX, IPF #### [place] [address] [employer] Supervisor: Francisco J Fonseca MDAnion gap [Moles/Vol]15 mmol/LNormal9-17Mary[facility] HospitalComment on above:Performed By: #### CDP, MELVIN, BMPX, IPF #### [facility] [address] [place] [address] [employer] Supervisor: Francisco J Fonseca, MDCalcium [Mass/Vol]8.2 mg/dLLow8.6-10.4Marymount HospitalComment on above:Performed By: #### CDP, MELVIN, BMPX, IPF #### [facility] [address] [place] [address] [employer] Supervisor: Francisco J Fonseca MDChloride [Moles/Vol]98 mmol/VRskltk47-113GuvmnMarymount HospitalComment on above:Performed By: #### CDP, MELVIN, BMPX, IPF #### [facility] [address] [place] [address] [employer] Supervisor: Francisco J Fosneca MDCO2 [Moles/Vol]23 mmol/JRqdsjp68-11BignbMarymount HospitalComment on above:Performed By: #### CDP, MELVIN, BMPX, IPF #### [facility] [address] [place] [address] [employer] Supervisor: MARLENY Brandonreatinine [Mass/Vol]0.66 mg/dLLow0.70-1.20Mary[facility] HospitalComment on above:Performed By: #### CDP, MELVIN, BMPX, IPF #### [facility] [address] [place] [address] [employer] Supervisor: Francisco J Fonseca MDGFR, Amer>60Normal>60Mary[facility] HospitalComment on above:Performed By: #### CDP, MELVIN, BMPX, IPF #### [facility] [address] [place] [address] [employer] Supervisor: Francisco J Fonseca MDGFR,non Amer>60Normal>60Mary[facility] HospitalComment on above:Performed By: #### CDP, MELVIN, BMPX, IPF #### [facility] [address] [place] [address] [employer] Supervisor: Francisco J Fnoseca MDGlucose [Mass/Vol]90 mg/fZFsiqvn11-35JezphEastern Plumas District HospitalComment on above:Performed By: #### CDP, MELVIN, BMPX, IPF #### [facility] [address] [place] [address] [employer] Supervisor: Francisco J Fonseca MDPotassium [Moles/Vol]3.7 mmol/LNormal3.7-5.3 Mary[facility] HospitalComment on above:Performed By: #### CDP, MELVIN, BMPX, IPF #### [facility] [address] [place] [address] [employer] Supervisor: MEIR Brandonodium [Moles/Vol]136 mmol/PRfxjmr004-528MfnilMarymount HospitalComment on above:Performed By: #### CDP, MELVIN, BMPX, IPF #### [address] [address] [employer] Supervisor: Francisco J Fonseca MDUrea nitrogen [Mass/Vol]20 mg/dLNormal8-23Marymount HospitalComment on above:Performed By: #### CDP, MELVIN, BMPX, IPF #### [address] [address] [employer] Supervisor: MARLENY Brandon with Diffon [id number]. Basophil0.04 k/uL Normal0.00-0.20Marymount HospitalComment on above:Performed By: #### CDP, MELVIN, BMPX, IPF #### [facility] [address] [place] [address] [employer] Supervisor: MDAbs. RomaImm.Granulocyte0.08 k/uLNormal0.00-0.30Marymount HospitalComment on above:Performed By: #### CDP, MELVIN, BMPX, IPF #### [facility] [address] [place] [address] [employer] Supervisor: Vidhya Brandon.Neutrophil (Seg)14.26 k/uLHigh1.50-8.10Marymount HospitalComment on above:Performed By: #### CDP, MELVIN, BMPX, IPF #### [facility] [address] [place] [address] [employer] Supervisor: Francisco J Fonseca MDBasophils/100 WBC (Bld)0 %Normal0-2MEastern Plumas District HospitalComment on above:Performed By: #### CDP, MELVIN, BMPX, IPF #### [facility] [address] [place] [address] [employer] Supervisor: Francisco J Fonseca MDEosinophils (Bld) [#/Vol]0.11 10*3/uLNormal 0.00-0.44Marymount HospitalComment on above:Performed By: #### CDP, MELVIN, BMPX, IPF #### [facility] [address] [place] [address] [employer] Supervisor: MAXIM Brandonosinophils/100 WBC (Bld)1 %Normal1-4Marymount HospitalComment on above:Performed By: #### CDP, MELVIN, BMPX, IPF #### [facility] [address] [place] [address] [employer] Supervisor: Francisco J Fonseca MDImmature granulocytes/100 WBC (Bld)1 %Zxnc1JrqncMarymount HospitalComment on above:Performed By: #### CDP, MELVIN, BMPX, IPF #### [facility] [address] [place] [address] [employer] Supervisor: Jeremie Brandonmphocytes (Bld) [#/Vol]0.96 10*3/uLLow 1.10-3.70Marymount HospitalComment on above:Performed By: #### CDP, MELVIN, BMPX, IPF #### [facility] [address] [place] [address] [employer] Supervisor: Jeremie Brandonmphocytes/100 WBC (Bld)6 %Vba21-25ZrtovMarymount HospitalComment on above:Performed By: #### CDP, MELVIN, BMPX, IPF #### [facility] [address] [place] [address] [employer] Supervisor: MARK Brandononocytes (Bld) [#/Vol]0.97 10*3/uLNormal 0.10-1.20Marymount HospitalComment on above:Performed By: #### CDP, MELVIN, BMPX, IPF #### [facility] [address] [place] [address] [employer] Supervisor: MARK Brandononocytes/100 WBC (Bld)6 %Normal3-12Marymount HospitalComment on above:Performed By: #### CDP, MELVIN, BMPX, IPF #### [facility] [address] [place] [address] [employer] Supervisor: Francisco J Fonseca MDNeutrophil (Seg)87 %Pjwb26-70EfzvpMarymount HospitalComment on above:Performed By: #### CDP, MELVIN, BMPX, IPF #### [facility] [address] [place] [address] [employer] Supervisor: Francisco J Fonseca MDErythrocyte distribution width (RBC) [Ratio]18.6 %High11.8-14.4Marymount HospitalComment on above:Performed By: #### CDP, MELVIN, BMPX, IPF #### [facility] [employer] [address] [place] [address] [employer] Supervisor: Francisco J Fonseca MDHematocrit (Bld) [Volume fraction]38.9 %Low 40.7-50.3Mgrand lake [facility] hospitaly [facility] Northern CaliforniaComment on above:Performed By: #### CDP, MELVIN, BMPX, IPF #### [facility] [address] [place] [address] [employer] Supervisor: Francisco J Fonseca MDHemoglobin (Bld) [Mass/Vol]13.5 g/dLNormal 13.0-17.0Marymount HospitalComment on above:Performed By: #### CDP, MELVIN, BMPX, IPF #### [facility] [address] [place] [address]16 [employer] Supervisor: MARK BrandonCH (RBC) [Entitic mass]26.8 wtElxgly47.2-33.5 Marymount HospitalComment on above:Performed By: #### CDP, MELVIN, BMPX, IPF #### [address] [address] [employer] Supervisor: MARK BrandonCHC (RBC) [Mass/Vol]34.7 g/lGAhqsnh02.4-34.8 Marymount HospitalComment on above:Performed By: #### CDP, MELVIN, BMPX, IPF #### [facility] [employer] [address] [place] [address] 20722 [employer] Supervisor: MARK BrandonCV (RBC) [Entitic vol]77.3 fLLow82.6-102.9Marymount HospitalComment on above:Performed By: #### CDP, MELVIN, BMPX, IPF #### [address] [address] [employer] Supervisor: Francisco J Fonseca MDNRBC Automated0.0 per 100 WBCNormal0.0Marymount HospitalComment on above:Performed By: #### CDP, MELVIN, BMPX, IPF #### [facility] [address] [place] [address] [employer] Supervisor: DENISE Brandonlatelet CountSee Reflexed IPF ResultNormal 138-453Marymount HospitalComment on above:Performed By: #### CDP, MELVIN, BMPX, IPF #### [facility] [address] [place] [address] 07341 [employer] Supervisor: LEIGH BrandonBC (Bld) [#/Vol]5.03 10*6/uLNormal4.21-5.77 Marymount HospitalComment on above:Performed By: #### CDP, MELVIN, BMPX, IPF #### [facility] [address] [place] [address]37 [employer] Supervisor: Francisco J Madoff, MDRBC morphology finding Nom (Bld)ANISOCYTOSIS PRESENTNormalMerPalomar Medical CenterComment on above:Result Comment: MICROCYTOSIS PRESENTPerformed By: #### CDP, MELVIN, BMPX, IPF #### [facility] [address] [place], [place] [phone] [employer] Supervisor: Francisco J Fonseca MDWBC (Bld) [#/Vol]16.4 10*3/uLHigh3.5-11.3[facility] Northern CaliforniaComment on above:Performed By: #### CDP, MELVIN, BMPX, IPF #### [facility] [address], [place] [phone] [employer] Supervisor: Francisco J oFnseca MDFL UGIon [id number] UGIEXAMINATION: SINGLE CONTRAST UPPER GI SERIES 01/05/2022 HISTORY: ORDERING SYSTEM PROVIDED HISTORY: repair perf ulcer TECHNOLOGIST PROVIDED HISTORY: repair perf ulcer COMPARISON: None. TECHNIQUE: Multiple single contrast images of the esophagus, gastroesophageal junction and stomach were obtained following the oral administration of water soluble contrast. FLUOROSCOPY DOSE AND TYPE OR TIME AND EXPOSURES: DAP 16.983Trhz5 FINDINGS: Contrast was administered through the indwelling [...] Signed by: Howard Aldridge MD 01/05/22 Final resultNormalMarymount HospitalLaboratory - Chemistry and Chemistry - challengeon [id number] [Mass/Vol]1.4 mg/dLLow1.6 - 2.6 mg/dLBON CLEVELAND CLINIC [facility]OU[facility] POINTE HOSPITALGFR/1.73 sq M.predicted MDRD (S/P/Bld) [Vol rate/Area][facility]ON [facility] POINTE HOSPITALComment on above:Average GFR for 70 or more years old: 75 mL/min/1.73sq m Chronic Kidney Disease: <60 mL/min/1.73sq m Kidney failure: <15 mL/min/1.73sq m eGFR calculated using average adult body mass. Additional eGFR calculator available at: http://www.[employer]mar[employer]y/multiple_crcl_2012.htm Potassium [Moles/Vol]3.4 mmol/LLow3.7 - 5.3 mmol/LBON SECOURS LANCASTER MUNICIPAL HOSPITALY HEALTHUrea nitrogen (BldV) [Mass/Vol]14 mg/dL8 - 23 mg/dLBON SECOURS MERCY HEALTHPhosphate [Mass/Vol]2.4 mg/dLLow2.5 - 4.5 mg/dLBON SECOURS MERCY HEALTHMagnesium [Mass/Vol]1.5 mg/dLLow1.6 - 2.6 mg/dLBON SECOURS MERCY HEALTHAnion gap [Moles/Vol]11 mmol/L9 - 17 mmol/LBON SECOURS MERCY HEALTHCalcium [Mass/Vol]9.1 mg/dL8.6 - 10.4 mg/dLBON SECOURS MERCY HEALTHChloride [Moles/Vol]99 mmol/L98 - 107 mmol/LBON SECOURS LANCASTER MUNICIPAL HOSPITALY HEALTHCO2 [Moles/Vol]25 mmol/L20 - 31 mmol/LBON SECOURS MERCY HEALTHCreatinine [Mass/Vol]0.57 mg/dLLow0.70 - 1.20 mg/dLBON SECOURS [facility] M[facility]ICIPAL HOSPITALY HEALTHGFR/1.73 sq M.predicted MDRD (S/P/Bld) [Vol rate/Area][facility] POINTE HOSPITALComment on above:Average GFR for 70 or more years old: 75 mL/min/1.73sq m Chronic Kidney Disease: <60 mL/min/1.73sq m Kidney failure: <15 mL/min/1.73sq m eGFR calculated using average adult body mass. Additional eGFR calculator available at: http://www.Smarp Oy/multiple_crcl_2012.htm Glucose [Mass/Vol]129 mg/mKUlwe94 - 99 mg/dLBON SECOURS MERCY HEALTHPhosphate [Mass/Vol]2.4 mg/dLLow2.5 - 4.5 mg/dLBON SECOURS MERCY HEALTHPotassium [Moles/Vol]3.5 mmol/LLow3.7 - 5.3 mmol/LBON SECOURS MERCY HEALTHSodium [Moles/Vol]135 mmol/L135 - 144 mmol/LBON CLEVELAND CLINIC SOUTH POINTE HOSPITALUrea nitrogen (BldV) [Mass/Vol]15 mg/dL8 - 23 mg/dLBON CLEVELAND CLINIC SOUTH POINTE HOSPITALLaboratory - Hematology and Cell countson [id number] (Bld) [#/Vol]0.04 10*3/uLBON CLEVELAND CLINIC SOUTH POINTE HOSPITALBasophils/100 WBC (Bld)0 %0 - 2 %[facility] Eosinophils/100 WBC (Bld)1 %1 - 4 %[facility] HOSPITALHematocrit (Bld) [Volume fraction]38.9 %Low40.7 - 50.3 %[facility]OSPITALHemoglobin (Bld) [Mass/Vol]13.5 g/dL13.0 - 17.0 g/dLBON CLEVEL[facility] CLINIC S[facility] POINTE HOSPITALImmature granulocytes/100 WBC (Bld)1 %Ripi7UKG CLEVELAND CLINIC SOUTH POINTE HOSPITALLymphocytes/100 WBC (Bld)6 %Low24 - 43 %[facility] HOSPITALH (RBC) [Entitic mass]26.8 pg25.2 - 33.5 pgBON WOOD COUNTY HOSPITALHC (RBC) [Mass/Vol]34.7 g/dL28.4 - 34.8 g/dL [facility]OUN HOSPITALV (RBC) [Entitic vol]77.3 fLLow82.6 - 102.9 fLDOMINION HOSPITALMonocytes/100 WBC (Bld)6 %3 - 12 %[facility] Platelet distribution width (Bld) [Ratio]18.6 %High11.8 - 14.4 %[facility]OSPITALPlatelets (Bld) [#/Vol]See Reflexed IPF ResultBON CLEVELAND CLINIC SOUTH POINTE HOSPITALRBC (Bld) [#/Vol]5.03 10*6/uL4.21 - 5.77 m/uLDOMINION HOSPITALRBC (Bld) [#/Vol]ANISOCYTOSIS PRESENTDOMINION HOSPITALComment on above: MICROCYTOSIS PRESENTSegmented neutrophils/100 WBC (Bld)87 %High36 - 65 %[facility]OSPITALWBC (Bld) [#/Vol]16.4 10*3/uLJefferson Memorial HospitalBON [facility] Magnesiumon [id number] [Mass/Vol]1.4 mg/dLLow1.6-2.6[facility] Northern CaliforniaComment on above:Performed By: #### CDP, MELVIN, BMPX, IPF #### [facility] [address] [place] [address] [employer] Supervisor: Francisco J Fonseca MDMagnesium [Mass/Vol]1.5 mg/dLLow1.6-2.6[facility] Northern CaliforniaComment on above:Performed By: #### CDP, MELVIN, BMPX, IPF #### [facility] [address] [place] [address] [employer] Supervisor: Francisco J Fonseca MDUnc Health Nash Informationon . No evidence for contrast leakage from the stomach or duodenum following repair of perforated ulcer. 2. Gastroesophageal reflux. [facility] CONSOLIDATEDEXAMINATION: SINGLE CONTRAST UPPER GI SERIES 01/05/2022 HISTORY: ORDERING SYSTEM PROVIDED HISTORY: repair perf ulcer TECHNOLOGIST PROVIDED HISTORY: repair perf ulcer COMPARISON: None. TECHNIQUE: Multiple single contrast images of the esophagus, gastroesophageal junction and stomach were obtained following the oral administration of water soluble contrast. FLUOROSCOPY DOSE AND TYPE OR TIME AND EXPOSURES: DAP 16.376Rrvz5 FINDINGS: Contrast was administered through the indwelling NG tube. No extravasation of contrast from the stomach. There is normal filling of stomach and proximal small bowel loops. There was some reflux into the biliary tree. Gastroesophageal reflux is noted. [facility] Howard Castorena MD - 01/05/2022 EXAMINATION: SINGLE CONTRAST UPPER GI SERIES 01/05/2022 HISTORY: ORDERING SYSTEM PROVIDED HISTORY: repair perf ulcer TECHNOLOGIST PROVIDED HISTORY: repair perf ulcer COMPARISON: None. TECHNIQUE: Multiple single contrast images of the esophagus, gastroesophageal junction and stomach were obtained following the oral administration of water soluble contrast. FLUOROSCOPY DOSE AND TYPE OR TIME AND EXPOSURES: DAP 16.282Btqw5 FINDINGS: Contrast was administered through the indwelling NG tube. No extravasation of contrast from the stomach. There is normal filling of stomach and proximal small bowel loops. There was some reflux into the biliary tree. Gastroesophageal reflux is noted. IMPRESSION: 1. No evidence for contrast leakage from the stomach or duodenum following repair of perforated ulcer. 2. Gastroesophageal reflux. [facility] [employer] Work Phone: radiology Study observation (narrative)[facility] [employer] Work Phone: Interpretation and review of laboratory results AbnormalBON SECOURS MERCY HEALTHBON SEC[facility] MERCY HEALTHGFR >60 >60 mL/minBON SECOURS MERCY HEALTHGFR Non->60>60 mL/minBON [facility] MERCY HEALTHInterpretation and review of laboratory resultsAbnormalBON SECOU[facility] MERCY HEALTHBON [facility] MERCY HEALTHInterpretation and review of laboratory resultsAbnormalBON SECOU[facility]UNICIP[facility] HOSPITALY HEALTHB[facility] 42cmY HEALTH Interpretation and review of laboratory resultsAbnormalBON SECGENIAC HEALTH Platelet, Mpacyqkedwlf368BQK SECOURS Club 42cmY HEALTHPlatelet, Immature Rptzobif34.5 %High1.1 - 10.3 %BON SECSkoovyY HEALTHBON SECOURS MERCY HEALTHAbsolute Eos # 0.11B[facility] MERCY HEALTHAbsolute Immature Granulocyte0.08B[facility]CY HEALTHAbsolute Lymph #0.96LowBON SECOURS MERCY HEALTHAbsolute [place] #0.97[facility] HEALTHInterpretation and review of laboratory resultsAbnormalBON SECOURS [facility] 42cmY HEALTHNRBC Automated0.00.0 per 100 WBCBON SECOURS Club 42cmY HEALTHSegs Innkosew90.26HighBON SECOURS [facility]STER MUNICIPAL HOSPITALY HEALTHHAVASU [facility] SECOURS MERCY HEALTHInterpretation and review of laboratory resultsAbnormalBON SECOURS LAN[facility]STER MUNICIPAL HOSPITALY HEALTHBON [facility] MUNICIPAL HOSPITALY HEALTHGFR >60>60 mL/minBON SECOURS MERCY HEALTHGFR Non- >60>60 mL/minBON SECOURS MERCY HEALTHInterpretation and review of laboratory resultsAbnormalBON SECOURS LAN[facility]STER MUNICIPAL HOSPITALY HEALTHBON [facility] 42cmY HEALTHNo Panel InformationOrdered By: Howard Aldridge on [id number] [employer] Work Phone: PLT, Immature Fract.on 99-19-1771Vduoheji, Fluoresc. 250 k/nQWvhqkg535-928Lbn[address] [place], [place] [address]Comment on above:Performed By: #### CDP, MELVIN, BMPX, IPF #### [facility] [address] [place] [address]85 [employer] Supervisor: SUSANNAH Brandon Immature Fract.10.5 %High1.1-10.3[facility] Northern CaliforniaComment on above:Performed By: #### CDP, MELVIN, BMPX, IPF #### [facility] [address] [place] [address] 9[address]60 [employer] Supervisor: Brandon Brandonhokhari Inorg.on 12-26-9680Yozlkwfbyq, Inorg.2.4 mg/dLLow2.5-4.5Marymount HospitalComment on above: Performed By: #### CDP, MELVIN, BMPX, IPF #### [facility] [address] [place] [address] [employer] Supervisor: Mckayla Brandon Inorg.1.9 mg/dLLow2.5-4.5Marymount HospitalComment on above:Performed By: #### CDP, MELVIN, BMPX, IPF #### [facility] [address] [place] [address]77 [employer] Supervisor: Rubina Brandon Metab w/rfx MGon 44-72-7325Pgsifevwb [Moles/Vol]3.4 mmol/LLow3.7-5.3Mgrand lake [facility] memorial hospitaly [facility] Northern CaliforniaComment on above: Performed By: #### CDP, MELVIN, BMPX, IPF #### [facility] [address] [place] [address] [employer] Supervisor: Francisco J Fonseca MD(cont.)[facility] Comment on above:Result Comment: Average GFR for 70 or more years old: 75 mL/min/1.73sq m Chronic Kidney Disease: <60 mL/min/1.73sq m Kidney failure: <15 mL/min/1.73sq m eGFR calculated using average adult body mass. Additional eGFR calculator available at: http://www.[employer].com/multiple_crcl_2012.htmPerformed By: #### CDP, MELVIN, BMPX, IPF #### [facility] [address] [place] [address] [employer] Supervisor: Francisco J Fonseca MDAnion gap [Moles/Vol]12 mmol/LNormal9-17Marymount HospitalComment on above:Performed By: #### CDP, MELVIN, BMPX, IPF #### [facility] [address] [place] [address] 71383 [employer] Supervisor: Francisco J Fonseca MDCalcium [Mass/Vol]8.1 mg/dLLow8.6-10.4Marymount HospitalComment on above:Performed By: #### CDP, MELVIN, BMPX, IPF #### [facility] [address] [place] [address]52 [employer] Supervisor: Francisco J Fonseca MDChloride [Moles/Vol]99 mmol/XXifpgv59-348CihxnMarymount HospitalComment on above:Performed By: #### CDP, MELVIN, BMPX, IPF #### [facility] [address] [place] [address] [employer] Supervisor: Francisco J Fonseca MDCO2 [Moles/Vol]23 mmol/HSzyjgu72-86CkgwmMarymount HospitalComment on above:Performed By: #### CDP, MELVIN, BMPX, IPF #### [facility] [address] [place] [address] [employer] Supervisor: Francisco J Fonseca MDCreatinine [Mass/Vol]0.61 mg/dLLow0.70-1.20Marymount HospitalComment on above:Performed By: #### CDP, MELVIN, BMPX, IPF #### [facility] [address] [place] [address] [employer] Supervisor: Francisco J Madoff, MDGFR, Amer>60Normal>60Marymount HospitalComment on above:Performed By: #### CDP, MELVIN, BMPX, IPF #### [facility] [address] [place] [address] [employer] Supervisor: Francisco J Fonseca MDGFR,non Amer>60Normal>60Marymount HospitalComment on above:Performed By: #### CDP, MELVIN, BMPX, IPF #### [facility] [address] [place] [address] [employer] Supervisor: Francisco J Fonseca MDGlucose [Mass/Vol]125 mg/iEThus01-62OozlhEastern Plumas District HospitalComment on above:Performed By: #### CDP, MELVIN, BMPX, IPF #### [address] [address] [employer] Supervisor: MEIR Brandonodium [Moles/Vol]134 mmol/QSos546-762YptiaMarymount HospitalComment on above:Performed By: #### CDP, MELVIN, BMPX, IPF #### [facility] [address] [place] [address] [employer] Supervisor: Francisco J Fonseca MDUrea nitrogen [Mass/Vol]19 mg/dLNormal8-23Marymount HospitalComment on above:Performed By: #### CDP, MELVIN, BMPX, IPF #### [facility] [address] [place] [address] [employer] Supervisor: Francisco J Fonseca MD(cont.)[facility] Comment on above:Result Comment: Average GFR for 70 or more years old: 75 mL/min/1.73sq m Chronic Kidney Disease: <60 mL/min/1.73sq m Kidney failure: <15 mL/min/1.73sq m eGFR calculated using average adult body mass. Additional eGFR calculator available at: http://www.[employer]Cava/multiple_crcl_2012.htmPerformed By: #### CDP, MELVIN, BMPX, IPF #### [facility] [address] [place] [address] [employer] Supervisor: Francisco J Fonseca MDAnion gap [Moles/Vol]13 mmol/LNormal9-17Marymount HospitalComment on above:Performed By: #### CDP, MELVIN, BMPX, IPF #### [facility] [address] [place] [address] [employer] Supervisor: Francisco J Fonseca MDCalcium [Mass/Vol]8.4 mg/dLLow8.6-10.4Marymount HospitalComment on above:Performed By: #### CDP, MELVIN, BMPX, IPF #### [address] [address] [employer] Supervisor: MARLENY Brandonhloride [Moles/Vol]101 mmol/RLrysdl95-778AtjetMarymount HospitalComment on above:Performed By: #### CDP, MELVIN, BMPX, IPF #### [address] [address] [employer] Supervisor: Francisco J Fonseca MDCO2 [Moles/Vol]23 mmol/TWsqqzz37-20MspkxMarymount HospitalComment on above:Performed By: #### CDP, MELVIN, BMPX, IPF #### [place] [address] [employer] Supervisor: Francisco J Fonseca MDCreatinine [Mass/Vol]0.73 mg/dLNormal0.70-1.20 Marymount HospitalComment on above:Performed By: #### CDP, MELVIN, BMPX, IPF #### [address] [address] [employer] Supervisor: ARTURO Brandon,Krystal Amer>60Normal>60MerPalomar Medical CenterComment on above:Performed By: #### CDP, MLEVIN, BMPX, IPF #### [facility] [address] [place] [address] [employer] Supervisor: Francisco J Fonseca MDGFR,non Amer>60Normal>60Marymount HospitalComment on above:Performed By: #### CDP, MELVIN, BMPX, IPF #### [facility] [address] [place] [address] [employer] Supervisor: Francisco J Fonseca MDGlucose [Mass/Vol]124 mg/fUUsrj97-75KjoqoEastern Plumas District HospitalComment on above:Performed By: #### CDP, MELIVN, BMPX, IPF #### [facility] [address] [place] [address] [employer] Supervisor: Francisco J Fonseca, MDPotassium [Moles/Vol]3.9 mmol/LNormal3.7-5.3 Marymount HospitalComment on above:Performed By: #### CDP, MELVIN, BMPX, IPF #### [facility] [address] [place] [address] [employer] Supervisor: MEIR Brandonodium [Moles/Vol]137 mmol/NNpgqms760-680ZcinmMarymount HospitalComment on above:Performed By: #### CDP, MELVIN, BMPX, IPF #### [facility] [address] [place] [address] [employer] Supervisor: Francisco J Fonseca MDUrea nitrogen [Mass/Vol]24 mg/dLHigh8-23Marymount HospitalComment on above:Performed By: #### CDP, MELVIN, BMPX, IPF #### [facility] [address] [place] [address] [employer] Supervisor: Francisco J Fonseca MD(cont.)[facility] Comment on above:Result Comment: Average GFR for 70 or more years old: 75 mL/min/1.73sq m Chronic Kidney Disease: <60 mL/min/1.73sq m Kidney failure: <15 mL/min/1.73sq m eGFR calculated using average adult body mass. Additional eGFR calculator available at: http://www.[employer]ava/multiple_crcl_2012.htmPerformed By: #### BMPX, MELVIN #### [facility] [address] [place] [address] [employer] Supervisor: Francisco J Fonseca MDAnion gap [Moles/Vol]12 mmol/LNormal9-17Marymount HospitalComment on above:Performed By: #### BMPX, MELVIN #### [address] [address] [employer] Supervisor: Francisco J Fonseca MDCalcium [Mass/Vol]8.5 mg/dLLow8.6-10.4Marymount HospitalComment on above:Performed By: #### BMPX, MELVIN #### [address] [address] [employer] Supervisor: Francisco J Fonseca MDChloride [Moles/Vol]101 mmol/UHtbqbo57-690UpqlzMarymount HospitalComment on above:Performed By: #### BMPX, MELVIN #### [address] [address] [employer] Supervisor: Francisco J Fonseca MDCO2 [Moles/Vol]23 mmol/OQqyawr03-71XkvjuMarymount HospitalComment on above:Performed By: #### BMPX, MELVIN #### [address] [address] [employer] Supervisor: Francisco J Fonseca MDCreatinine [Mass/Vol]0.82 mg/dLNormal0.70-1.20 Marymount HospitalComment on above:Performed By: #### BMPX, MELVIN #### [facility] [address] [place] [address] [employer] Supervisor: Francisco J Fonseca MDGFR, Amer>60Normal>60Marymount HospitalComment on above:Performed By: #### BMPX, MELVIN #### [facility] [address] [place] [address] [employer] Supervisor: Francisco J Fonseca MDGFR,non Amer>60Normal>60Marymount HospitalComment on above:Performed By: #### BMPX, MELVIN #### [facility] [address] [place] [address] [employer] Supervisor: Francisco J Fonseca MDGlucose [Mass/Vol]100 mg/dGOjse34-66FmyoeEastern Plumas District HospitalComment on above:Performed By: #### BMPX, MELVIN #### [address] [address] [employer] Supervisor: DENISE Brandonotassium [Moles/Vol]3.9 mmol/LNormal3.7-5.3 Mary[facility] HospitalComment on above:Performed By: #### BMPX, MELVIN #### [address] [address] [employer] Supervisor: MEIR Brandonodium [Moles/Vol]136 mmol/UMvdtmu476-332NplvjMarymount HospitalComment on above:Performed By: #### BMPX, MELVIN #### [address] [address] [employer] Supervisor: Francisco J Fonseca MDUrea nitrogen [Mass/Vol]26 mg/dLHigh8-23Marymount HospitalComment on above:Performed By: #### BMPX, MELVIN #### [address] [address] [employer] Supervisor: Francisco J Fonseca MD(cont.)[facility] Comment on above:Result Comment: Average GFR for 70 or more years old: 75 mL/min/1.73sq m Chronic Kidney Disease: <60 mL/min/1.73sq m Kidney failure: <15 mL/min/1.73sq m eGFR calculated using average adult body mass. Additional eGFR calculator available at: http://www.[employer].BlueCava/multiple_crcl_2012.htmPerformed By: #### CDP #### [address] [address] [employer] Supervisor: Francisco J Fonseca MDAnion gap [Moles/Vol]11 mmol/LNormal9-17Mary[facility] HospitalComment on above:Performed By: #### CDP #### [address] [address] [employer] Supervisor: MARLENY Brandonalcium [Mass/Vol]8.3 mg/dLLow8.6-10.4Marymount HospitalComment on above:Performed By: #### CDP #### [address] [address] [employer] Supervisor: MARLENY Brandonhloride [Moles/Vol]104 mmol/CFscuwz89-172CvbcdMarymount HospitalComment on above:Performed By: #### CDP #### [address] [address] [employer] Supervisor: Francisco J Fonseca MDCO2 [Moles/Vol]21 mmol/MChpcil46-92QhokkMarymount HospitalComment on above:Performed By: #### CDP #### [address] [address] [employer] Supervisor: Francisco J Fonseca MDCreatinine [Mass/Vol]0.83 mg/dLNormal0.70-1.20 [facility] HospitalComment on above:Performed By: #### CDP #### [address] [address] [employer] Supervisor: Francisco J Fonseca MDGFR, Amer>60Normal>60Marymount HospitalComment on above:Performed By: #### CDP #### [facility] [place] [address] [employer] Supervisor: Francisco J Fonseca MDGFR,non Amer>60Normal>60Marymount HospitalComment on above:Performed By: #### CDP #### [facility] [address] [place] [address] [employer] Supervisor: Francisco J Fonseca MDGlucose [Mass/Vol]71 mg/zMWgchrf21-91OlqejEastern Plumas District HospitalComment on above:Performed By: #### CDP #### [facility] [address] [place] [address] [employer] Supervisor: DENISE Brandonotassium [Moles/Vol]4.5 mmol/LNormal3.7-5.3 Mary[facility] HospitalComment on above:Result Comment: SPECIMEN SLIGHTLY HEMOLYZED, RESULTS MAY BE ADVERSELY AFFECTED.Performed By: #### CDP #### [address] [address] [employer] Supervisor: MEIR Brandonodium [Moles/Vol]136 mmol/ODegtim290-875MypfoMarymount HospitalComment on above:Performed By: #### CDP #### [facility] [employer] [address] [place] [address] [employer] Supervisor: Francisco J Fonseca MDUrea nitrogen [Mass/Vol]29 mg/dLHigh8-23Marymount HospitalComment on above:Performed By: #### CDP #### [facility] [address] [place] [address] [employer] Supervisor: Francisco J Fonseca [facility] with Diffon 14-52-3261Waj. Basophil0.04 k/uL Normal0.00-0.20Marymount HospitalComment on above:Performed By: #### CDP #### [facility] [employer] [address] [place] [address] [employer] Supervisor: Vidhya Brandon. Eosinophil<0.22Ghkqjs0.00-0.44Marymount HospitalComment on above:Performed By: #### CDP #### [address] [address] [employer] Supervisor: MDAbs. RomaImm.Granulocyte0.20 k/uLNormal0.00-0.30Marymount HospitalComment on above:Performed By: #### CDP #### [address] [address] [employer] Supervisor: MDAbs. RomaNeutrophil (Seg)18.94 k/uLHigh1.50-8.10Marymount HospitalComment on above:Performed By: #### CDP #### [place] [address] [employer] Supervisor: Francisco J Fonseca MDBasophils/100 WBC (Bld)0 %Normal0-2MEastern Plumas District HospitalComment on above:Performed By: #### CDP #### [place] [address] [employer] Supervisor: Francisco J Fonseca MDEosinophils/100 WBC (Bld)0 %Low1-4Marymount HospitalComment on above:Performed By: #### CDP #### [place] [address] [employer] Supervisor: Francisco J Fonseca MDErythrocyte distribution width (RBC) [Ratio]19.0 %High11.8-14.4Marymount HospitalComment on above:Performed By: #### CDP #### [address] [address] [employer] Supervisor: Francisco J Fonseca MDHematocrit (Bld) [Volume fraction]35.1 %Low 40.7-50.3[facility] Northern CaliforniaComment on above:Performed By: #### CDP #### [address] [address] [employer] Supervisor: Francisco J Fonseca MDHemoglobin (Bld) [Mass/Vol]12.0 g/dLLow13.0-17.0 [facility] HospitalComment on above:Performed By: #### CDP #### [address] [address] [employer] Supervisor: Francisco J Fonseca MDImmature granulocytes/100 WBC (Bld)1 %Hzaw8XtohzMarymount HospitalComment on above:Performed By: #### CDP #### [address] [address] [employer] Supervisor: Francisco J Fonseca MDLymphocytes (Bld) [#/Vol]0.89 10*3/uLLow 1.10-3.70Marymount HospitalComment on above:Performed By: #### CDP #### [address] [address] [employer] Supervisor: Jeremie Brandonmphocytes/100 WBC (Bld)4 %Qav84-78NnygzMarymount HospitalComment on above:Performed By: #### CDP #### [address] [address] [employer] Supervisor: MARK BrandonCH (RBC) [Entitic mass]27.6 xiGsievi43.2-33.5 Mary[facility] HospitalComment on above:Performed By: #### CDP #### [address] [address] [employer] Supervisor: MARK BrandonCHC (RBC) [Mass/Vol]34.2 g/jNUwylgy28.4-34.8 Marymount HospitalComment on above:Performed By: #### CDP #### [address] [place] [address] [employer] Supervisor: MARK BrandonCV (RBC) [Entitic vol]80.7 fLLow82.6-102.9Marymount HospitalComment on above:Performed By: #### CDP #### [address] [address] [employer] Supervisor: MARK Brandononocytes (Bld) [#/Vol]1.33 10*3/uLHigh0.10-1.20 Mary[facility] HospitalComment on above:Performed By: #### CDP #### [place] [address] [employer] Supervisor: MARK Brandononocytes/100 WBC (Bld)6 %Normal3-12Marymount HospitalComment on above:Performed By: #### CDP #### [place] [address] [employer] Supervisor: Shelli Brandonophil (Seg)89 %Acgr44-15LjvtqMarymount HospitalComment on above:Performed By: #### CDP #### [address] [address] [employer] Supervisor: Francisco J Fonseca MDNRBC Automated0.0 per 100 WBCNormal0.0Marymount HospitalComment on above:Performed By: #### CDP #### [place] [address] [employer] Supervisor: DENISE Brandonlatelet mean volume (Bld) [Entitic vol]12.3 fL Normal8.1-13.5Marymount HospitalComment on above:Performed By: #### CDP #### [address] [address] [employer] Supervisor: DENISE Brandonlatelets (Bld) [#/Vol]245 10*3/jGEbcmvu804-077 Mary[facility] HospitalComment on above:Performed By: #### CDP #### [address] [address] [employer] Supervisor: YOLA Brandon (Bld) [#/Vol]4.35 10*6/uLNormal4.21-5.77 Mary[facility] HospitalComment on above:Performed By: #### CDP #### [address] [address] [employer] Supervisor: YOLA Brandon morphology finding Nom (Bld)ANISOCYTOSIS PRESENTNoPremier Health Miami Valley HospitalComment on above:Result Comment: MICROCYTOSIS PRESENTPerformed By: #### CDP #### [address] [address] [employer] Supervisor: PABLO Brandon (Bld) [#/Vol]21.4 10*3/uLHigh3.5-11.3MEastern Plumas District HospitalComment on above:Performed By: #### CDP #### [address] [address] [employer] Supervisor: Marry Brandon,Urineon 88-98-4800Dpzm,UrineSpecimen Description .INDWELLING CATH URINE Culture NO GROWTH Report Status FINAL 01/04/2022[facility] CenterComment on above:Performed By: #### CDP, MELVIN, BMPX, IPF #### [address] [address] [employer] Supervisor: Francisco J Fonseca MDLaboratory - Chemistry and Chemistry - challenge on 72-80-9270Kvanv gap [Moles/Vol]15 mmol/L9 - 17 mmol/LBON [facility] Calcium [Mass/Vol]8.2 mg/dLLow8.6 - 10.4 mg/dLBON [facility] MERCY HEALTHChloride [Moles/Vol]98 mmol/L98 - 107 mmol/LBON [facility] HEALTHCO2 [Moles/Vol]23 mmol/L20 - 31 mmol/LB[facility] HEALTHCreatinine [Mass/Vol]0.66 mg/dLLow 0.70 - 1.20 mg/dLBON SEC[facility]ITALY HEALTHGFR/1.73 sq M.predicted MDRD (S/P/Bld) [Vol rate/Area]BON [facility] HOSPITALComment on above:Average GFR for 70 or more years old: 75 mL/min/1.73sq m Chronic Kidney Disease: <60 mL/min/1.73sq m Kidney failure: <15 mL/min/1.73sq m eGFR calculated using average adult body mass. Additional eGFR calculator available at: http://www.Smarp Oy/multiple_crcl_2011.htm Glucose [Mass/Vol]90 mg/dL70 - 99 mg/dLBON [facility] HEALTHPhosphate [Mass/Vol]1.9 mg/dLLow2.5 - 4.5 mg/dLBON [facility] HEALTHPotassium [Moles/Vol]3.7 mmol/L3.7 - 5.3 mmol/LBON SECASHTABULA GENERAL HOSPITALSodium [Moles/Vol] 136 mmol/L135 - 144 mmol/LB[facility] RocketickUrea nitrogen (BldV) [Mass/Vol]20 mg/dL8 - 23 mg/dLBON SECASHTABULA GENERAL HOSPITALMagnesium [Mass/Vol]1.5 mg/dLLow1.6 - 2.6 mg/dLBON [facility] RocketickAnion gap [Moles/Vol]12 mmol/L9 - 17 mmol/LBON [facility] HEALTHCalcium [Mass/Vol]8.1 mg/dLLow8.6 - 10.4 mg/dL [facility] RocketickChloride [Moles/Vol]99 mmol/L98 - 107 mmol/LB[facility] HEALTHCO2 [Moles/Vol]23 mmol/L20 - 31 mmol/LB[facility] HEALTH Creatinine [Mass/Vol]0.61 mg/dLLow0.70 - 1.20 mg/dLBON [facility] Rocketick GFR/1.73 sq M.predicted MDRD (S/P/Bld) [Vol rate/Area][facility] Comment on above:Average GFR for 70 or more years old: 75 mL/min/1.73sq m Chronic Kidney Disease: <60 mL/min/1.73sq m Kidney failure: <15 mL/min/1.73sq m eGFR calculated using average adult body mass. Additional eGFR calculator available at: http://www.Smarp Oy/Brandicted_crcl_2012.htm Glucose [Mass/Vol]125 mg/gUQdhz46 - 99 mg/dLBON [facility]RS [facility]CY HEALTHPotassium [Moles/Vol]3.4 mmol/LLow3.7 - 5.3 mmol/LBON [facility] HEALTHSodium [Moles/Vol]134 mmol/YDbv145 - 144 mmol/LBON [facility]OS[facility]ITALY HEALTHUrea nitrogen (BldV) [Mass/Vol]19 mg/dL8 - 23 mg/dLBON [facility]CY HEALTHPhosphate [Mass/Vol]2.2 mg/dLLow2.5 - 4.5 mg/dLBON [facility] MERCY HEALTHAnion gap [Moles/Vol]13 mmol/L9 - 17 mmol/LB[facility] HEALTHCalcium [Mass/Vol]8.4 mg/dLLow8.6 - 10.4 mg/dLBON [facility] HEALTHChloride [Moles/Vol]101 mmol/L98 - 107 mmol/LB[facility] HEALTHCO2 [Moles/Vol]23 mmol/L20 - 31 mmol/LB[facility] HEALTHCreatinine [Mass/Vol]0.73 mg/dL0.70 - 1.20 mg/dLBON SECOURS Club 42cmY HEALTHGFR/1.73 sq M.predicted MDRD (S/P/Bld) [Vol rate/Area][facility] Pinnacle SpineComment on above:Average GFR for 70 or more years old: 75 mL/min/1.73sq m Chronic Kidney Disease: <60 mL/min/1.73sq m Kidney failure: <15 mL/min/1.73sq m eGFR calculated using average adult body mass. Additional eGFR calculator available at: http://www.Smarp Oy/Brandicted_crcl_2011.htm Glucose [Mass/Vol]124 mg/tXAkwj56 - 99 mg/dLBON [facility]RS MERCY HEALTHPhosphate [Mass/Vol]2.5 [...] HEALTHChloride [Moles/Vol]101 mmol/L98 - 107 mmol/LBON [facility]OS[facility]ITALY HEALTHCO2 [Moles/Vol]23 mmol/L20 - 31 mmol/LB[facility]OS[facility]ITALY HEALTHCreatinine [Mass/Vol]0.82 mg/dL0.70 - 1.20 mg/dLBON [facility] MERCY HEALTHGFR/1.73 sq M.predicted MDRD (S/P/Bld) [Vol rate/Area]BON [facility] HOSPITALComment on above:Average GFR for 70 or more years old: 75 mL/min/1.73sq m Chronic Kidney Disease: <60 mL/min/1.73sq m Kidney failure: <15 mL/min/1.73sq m eGFR calculated using average adult body mass. Additional eGFR calculator available at: http://www.[employer].BlueCava/multiple_crcl_2012.htm Glucose [Mass/Vol]100 mg/eNPyac63 - 99 mg/dLBON [facility]RS MERCY HEALTHPhosphate [Mass/Vol]2.7 mg/dL2.5 - 4.5 mg/dLBON [facility] HEALTHPotassium [Moles/Vol] 3.9 mmol/L3.7 - 5.3 mmol/LBON [facility] HEALTHSodium [Moles/Vol]136 mmol/L 135 - 144 mmol/LBON [facility]CY HEALTHUrea nitrogen (BldV) [Mass/Vol]26 mg/dL High8 - 23 mg/dLBON [facility] HEALTHGlucose [Mass/Vol]81 mg/dL75 - 110 mg/dL [facility] HEALTHAnion gap [Moles/Vol]11 mmol/L9 - 17 mmol/LB[facility] HEALTHCalcium [Mass/Vol]8.3 mg/dLLow8.6 - 10.4 mg/dLBON [facility] HEALTHChloride [Moles/Vol]104 mmol/L98 - 107 mmol/LB[facility]ITALY HEALTHCO2 [Moles/Vol]21 mmol/L20 - 31 mmol/LB[facility] HEALTHCreatinine [Mass/Vol] 0.83 mg/dL0.70 - 1.20 mg/dLBON [facility] HEALTHGFR/1.73 sq M.predicted MDRD (S/P/Bld) [Vol rate/Area][facility]OSPITALComment on above:Average GFR for 70 or more years old: 75 mL/min/1.73sq m Chronic Kidney Disease: <60 mL/min/1.73sq m Kidney failure: <15 mL/min/1.73sq m eGFR calculated using average adult body mass. Additional eGFR calculator available at: http://www.Smarp Oy/multiple_crcl_2011.htm Glucose [Mass/Vol]71 mg/dL70 - 99 mg/dLBON [facility] HEALTHPhosphate [Mass/Vol]3.2 mg/dL2.5 - 4.5 mg/dLBON [facility] HEALTHPotassium [Moles/Vol] 4.5 mmol/L3.7 - 5.3 mmol/LBON [facility] HEALTHComment on above:SPECIMEN SLIGHTLY HEMOLYZED, RESULTS MAY BE ADVERSELY AFFECTED.Sodium [Moles/Vol]136 mmol/L135 - 144 mmol/LB[facility] HEALTHUrea nitrogen (BldV) [Mass/Vol]29 mg/dLHigh8 - 23 mg/dLBON [facility] HEALTHLaboratory - Hematology and Cell countson 85-36-4356Nuxcqfucg (Bld) [#/Vol]0.04 10*3/uLBON [facility] HEALTH Basophils/100 WBC (Bld)0 %0 - 2 %[facility]INION HOSPITALEosinophils/100 WBC (Bld)0 %Low1 - 4 %[facility] HOSPITALHematocrit (Bld) [Volume fraction]35.1 %Low40.7 - 50.3 %[facility] HOSPITALHemoglobin (Bld) [Mass/Vol]12.0 g/dLLow 13.0 - 17.0 g/dLBON [facility] HOSPITALImmature granulocytes/100 WBC (Bld)1 % Ahqu8UYW [facility]TE HOSPITALLymphocytes/100 WBC (Bld)4 %Low24 - 43 %[facility]OSPITALH (RBC) [Entitic mass]27.6 pg25.2 - 33.5 pgINOVA LOUDOUN HOSPITALHC (RBC) [Mass/Vol]34.2 g/dL28.4 - 34.8 g/dLBON SECMEMORIAL HOSPITALV (RBC) [Entitic vol]80.7 fLLow82.6 - 102.9 fLDOMINION HOSPITAL Monocytes/100 WBC (Bld)6 %3 - 12 %[facility] HOSPITALPlatelet distribution width (Bld) [Ratio]19.0 %High11.8 - 14.4 %[facility] HOSPITALPlatelet mean volume (Bld) [Entitic vol]12.3 fL8.1 - 13.5 fLDICKENSON COMMUNITY [facility]PITAL HEALTHPlatelets (Bld) [#/Vol]245 10*3/uLDOMINION HOSPITALRBC (Bld) [#/Vol]4.35 10*6/uL 4.21 - 5.77 m/uLDOMINION HOSPITALRBC (Bld) [#/Vol]ANISOCYTOSIS PRESENTDOMINION HOSPITALComment on above:MICROCYTOSIS PRESENTSegmented neutrophils/100 WBC (Bld)89 %High36 - 65 %[facility] HOSPITALWBC (Bld) [#/Vol]21.4 10*3/uLHighDOMINION HOSPITALLaboratory - Microbiology and Antimicrobial susceptibilityon [id number] identified Cx Nom (U)NO GROWTH [facility] HOSPITALMagnesiumon 45-28-8121Etuhjkvob [Mass/Vol]1.5 mg/dLLow 1.6-2.6[facility] Northern CaliforniaComment on above:Performed By: #### CDP, MELVIN, BMPX, IPF #### [facility] [address] [place] [address] [employer] Supervisor: Maggie Brandon Panel Informationon 79-79-3813FSD >60>60 mL/minBON [facility]OURS MERCY HEALTHGFR Non->60>60 mL/minBON [...] HEALTHAbsolute Lymph # 0.89LowB[facility] HEALTHAbsolute [place] #1.33HighB[facility] Interpretation and review of laboratory resultsAbnormalB[facility] NRBC Automated0.00.0 per 100 WBCBON [facility] CLINIC SOU[facility] POINTE HOSPITALSegs Lcvfhnuh20.94High BON [facility] HEALTHSpecimen Description.INDWELLING CATH URINEBON [facility] / [facility] HEALTHPhosphorus, Inorg.on 62-75-1100Iamtxbpsqm, Inorg.2.2 mg/dLLow2.5-4.5[facility] Comment on above:Performed By: #### CDP, MELVIN, BMPX, IPF #### [facility] [address] [place] [address] [employer] Supervisor: Francisco J Fonseca MDPhosphorus, Inorg.2.5 mg/dLNormal2.5-4.5[facility] HospitalComment on above:Performed By: #### CDP, MELVIN, BMPX, IPF #### [facility] [address] [place] [address] [employer] Supervisor: DENISE Brandonhosphorus, Inorg.2.7 mg/dLNormal2.5-4.5[facility] HospitalComment on above:Performed By: #### BMPX, MELVIN #### [facility] [address] [place] [address] [employer] Supervisor: DENISE Brandonhosphorus, Inorg.3.2 mg/dLNormal2.5-4.5[facility] HospitalComment on above:Performed By: #### CDP #### [facility] [address] [place] [address] [employer] Supervisor: Rubina Brandon Metab w/rfx MGon 01-03-2022(cont.)Normal [facility] HospitalComment on above:Result Comment: Average GFR for 70 or more years old: 75 mL/min/1.73sq m Chronic Kidney Disease: <60 mL/min/1.73sq m Kidney failure: <15 mL/min/1.73sq m eGFR calculated using average adult body mass. Additional eGFR calculator available at: http://www.[employer].com/multiple_crcl_2012.htmPerformed By: #### CDP, MELVIN, BMPX, IPF #### [facility] [address] [place] [address] [employer] Supervisor: Francisco J Fonseca MDAnion gap [Moles/Vol]12 mmol/LNormal9-17[facility] HospitalComment on above:Performed By: #### CDP, MELVIN, BMPX, IPF #### [facility] [address] [place] [address] [employer] Supervisor: Francisco J Fonseca MDCalcium [Mass/Vol]8.3 mg/dLLow8.6-10.4[facility] HospitalComment on above:Performed By: #### CDP, MELVIN, BMPX, IPF #### [address] [address] [employer] Supervisor: Francisco J Fonseca MDChloride [Moles/Vol]102 mmol/VVuiodh96-109GogejMarymount HospitalComment on above:Performed By: #### CDP, MELVIN, BMPX, IPF #### [facility] [address] [place] [address] [employer] Supervisor: Francisco J Fonseca MDCO2 [Moles/Vol]21 mmol/XSvidel34-62HmwvdMarymount HospitalComment on above:Performed By: #### CDP, MELVIN, BMPX, IPF #### [facility] [address] [place] [address] [employer] Supervisor: Francisco J Fonseca MDCreatinine [Mass/Vol]0.88 mg/dLNormal0.70-1.20 [facility] HospitalComment on above:Performed By: #### CDP, MELVIN, BMPX, IPF #### [facility] [employer] [address] [place] [address] [employer] Supervisor: Francisco J Fonseca MDGFR, Amer>60Normal>60[facility] HospitalComment on above:Performed By: #### CDP, MELVIN, BMPX, IPF #### [facility] [address] [place] [address] [employer] Supervisor: Francisco J Fonseca MDGFR,non Amer>60Normal>60[facility] HospitalComment on above:Performed By: #### CDP, MELVIN, BMPX, IPF #### [facility] [address] [place] [address] [employer] Supervisor: Farncisco J Fonseca MDGlucose [Mass/Vol]74 mg/sQPdfrnu56-96VbahsEastern Plumas District HospitalComment on above:Performed By: #### CDP, MELVIN, BMPX, IPF #### [address] [address] [employer] Supervisor: Francisco J Fonseca MDPotassium [Moles/Vol]4.2 mmol/LNormal3.7-5.3 [facility] HospitalComment on above:Performed By: #### CDP, MELVIN, BMPX, IPF #### [address] [address] [employer] Supervisor: Francisco J Fonseca MDSodium [Moles/Vol]135 mmol/XFzcnom868-040DijdnMarymount HospitalComment on above:Performed By: #### CDP, MELVIN, BMPX, IPF #### [facility] [address] [place] [address] [employer] Supervisor: Francisco J Fonseca MDUrea nitrogen [Mass/Vol]29 mg/dLHigh8-23[facility] HospitalComment on above:Performed By: #### CDP, MELVIN, BMPX, IPF #### [facility] [address] [place] [address] [employer] Supervisor: Francisco J Fonseca MD(cont.)[facility] Comment on above:Result Comment: Average GFR for 70 or more years old: 75 mL/min/1.73sq m Chronic Kidney Disease: <60 mL/min/1.73sq m Kidney failure: <15 mL/min/1.73sq m eGFR calculated using average adult body mass. Additional eGFR calculator available at: http://www.[employer].BlueCava/multiple_crcl_2012.htmPerformed By: #### CDP #### [employer] [address] [place] [address] [employer] Supervisor: Francisco J Fonseca MDAnion gap [Moles/Vol]12 mmol/LNormal9-17[facility] HospitalComment on above:Performed By: #### CDP #### [facility] [employer] [address] [place] [address] [employer] Supervisor: MARLENY Brandonalcium [Mass/Vol]8.4 mg/dLLow8.6-10.4[facility] HospitalComment on above:Performed By: #### CDP #### [facility] [address] [place] [address] [employer] Supervisor: MARLENY Brandonhloride [Moles/Vol]103 mmol/JWbojhh77-851EavvlMarymount HospitalComment on above:Performed By: #### CDP #### [facility] HospitalMag[facility] [employer] [address] [place] [address] [employer] Supervisor: Francisco J Fonseca MDCO2 [Moles/Vol]21 mmol/UWjwplv77-77BfckwMarymount HospitalComment on above:Performed By: #### CDP #### [facility] [employer] [address] [place] [address] [employer] Supervisor: MARLENY Brandonreatinine [Mass/Vol]0.93 mg/dLNormal0.70-1.20 [facility] HospitalComment on above:Performed By: #### CDP #### [facility] [address] [place] [address] [employer] Supervisor: Francisco J Fonseca MDGFR, Amer>60Normal>60[facility] HospitalComment on above:Performed By: #### CDP #### [address] [address] [employer] Supervisor: Francisco J Fonseca MDGFR,non Amer>60Normal>60[facility] HospitalComment on above:Performed By: #### CDP #### [address] [address] [employer] Supervisor: Francisco J Fonseca MDGlucose [Mass/Vol]155 mg/pHIugc71-15SoqgeEastern Plumas District HospitalComment on above:Performed By: #### CDP #### [address] [address] [employer] Supervisor: DENISE Brandonotassium [Moles/Vol]3.9 mmol/LNormal3.7-5.3 [facility] HospitalComment on above:Performed By: #### CDP #### [address] [address] [employer] Supervisor: MEIR Brandonodium [Moles/Vol]136 mmol/DBrrlmx249-553CgktyMarymount HospitalComment on above:Performed By: #### CDP #### [address] [address] [employer] Supervisor: Francisco J Fonseca MDUrea nitrogen [Mass/Vol]28 mg/dLHigh8-23[facility] HospitalComment on above:Performed By: #### CDP #### [address] [address] [employer] Supervisor: Francisco J Fonseca MD(cont.)[facility] Comment on above:Result Comment: Average GFR for 70 or more years old: 75 mL/min/1.73sq m Chronic Kidney Disease: <60 mL/min/1.73sq m Kidney failure: <15 mL/min/1.73sq m eGFR calculated using average adult body mass. Additional eGFR calculator available at: http://www.[employer].BlueCava/multiple_crcl_2012.htmPerformed By: #### CDP, MELVIN, BMPX, IPF #### [facility] [address] [place] [address] [employer] Supervisor: Francisco J Fonseca MDAnion gap [Moles/Vol]11 mmol/LNormal9-17[facility] HospitalComment on above:Performed By: #### CDP, MELVIN, BMPX, IPF #### [address] [address] [employer] Supervisor: Francisco J Fonseca MDCalcium [Mass/Vol]8.4 mg/dLLow8.6-10.4[facility] HospitalComment on above:Performed By: #### CDP, MELVIN, BMPX, IPF #### [facility] [address] [place] [address] [employer] Supervisor: Francisco J Fonseca MDChloride [Moles/Vol]103 mmol/BMoydzf52-902CutqvMarymount HospitalComment on above:Performed By: #### CDP, MELVIN, BMPX, IPF #### [facility] [employer] [address] [place] [address] [employer] Supervisor: Francisco J Fonseca MDCO2 [Moles/Vol]24 mmol/SBypziy06-88ZkppgMarymount HospitalComment on above:Performed By: #### CDP, MELVIN, BMPX, IPF #### [facility] [employer] [address] [place] [address] [employer] Supervisor: Francisco J Fonseca MDCreatinine [Mass/Vol]0.92 mg/dLNormal0.70-1.20 Marymount HospitalComment on above:Performed By: #### CDP, MELVIN, BMPX, IPF #### [facility] [employer] [address] [place] [address] [employer] Supervisor: Francisco J Fonseca MDGFR, Amer>60Normal>60Marymount HospitalComment on above:Performed By: #### CDP, MELVIN, BMPX, IPF #### [facility] [address] [place] [address] [employer] Supervisor: Francisco J Fonseca MDGFR,non Amer>60Normal>60Marymount HospitalComment on above:Performed By: #### CDP, MELVIN, BMPX, IPF #### [facility] [address] [place] [address] [employer] Supervisor: Francisco J Fonseca MDGlucose [Mass/Vol]226 mg/nPUzba73-51NptsdEastern Plumas District HospitalComment on above:Performed By: #### CDP, MELVIN, BMPX, IPF #### [facility] [address] [place] [address] [employer] Supervisor: Francisco J Fonseca, MDPotassium [Moles/Vol]5.0 mmol/LNormal3.7-5.3 Marymount HospitalComment on above:Performed By: #### CDP, MELVIN, BMPX, IPF #### [facility] [address] [place] [address] [employer] Supervisor: Francisco J Fonseca MDSodium [Moles/Vol]138 mmol/OAbpojy368-515MejbtMarymount HospitalComment on above:Performed By: #### CDP, MELVIN, BMPX, IPF #### [facility] [address] [place] [address] [employer] Supervisor: Francisco J Fonseca MDUrea nitrogen [Mass/Vol]26 mg/dLHigh8-23Marymount HospitalComment on above:Performed By: #### CDP, MELVIN, BMPX, IPF #### [facility] [address] [place] [address] [employer] Supervisor: Francisco J Fonseca MD(cont.)NormalMarymount Hospital Comment on above:Result Comment: Average GFR for 70 or more years old: 75 mL/min/1.73sq m Chronic Kidney Disease: <60 mL/min/1.73sq m Kidney failure: <15 mL/min/1.73sq m eGFR calculated using average adult body mass. Additional eGFR calculator available at: http://www.[employer].BlueCava/multiple_crcl_2012.htmPerformed By: #### CDP, MELVIN, BMPX, IPF #### [facility] [address] [place] [address] [employer] Supervisor: Francisco J Fonseca MDAnion gap [Moles/Vol]13 mmol/LNormal9-17Marymount HospitalComment on above:Performed By: #### CDP, MELVIN, BMPX, IPF #### [facility] [address] [place] [address] [employer] Supervisor: MARLENY Brandonalcium [Mass/Vol]8.4 mg/dLLow8.6-10.4Marymount HospitalComment on above:Performed By: #### CDP, MELVIN, BMPX, IPF #### [facility] [address] [place] [address] [employer] Supervisor: Francisco J Fonseca MDChloride [Moles/Vol]104 mmol/JJehucn14-792RabnfMarymount HospitalComment on above:Performed By: #### CDP, MELVIN, BMPX, IPF #### [facility] [address] [place] [address] [employer] Supervisor: Francisco J Fonseca MDCO2 [Moles/Vol]21 mmol/MBhxrxr73-38PeytjMarymount HospitalComment on above:Performed By: #### CDP, MELVIN, BMPX, IPF #### [facility] [address] [place] [address] [employer] Supervisor: Francisco J Fonseca MDCreatinine [Mass/Vol]0.84 mg/dLNormal0.70-1.20 Marymount HospitalComment on above:Performed By: #### CDP, MELVIN, BMPX, IPF #### [facility] [address] [place] [address] [employer] Supervisor: Francisco J Fonseca MDGFR, Amer>60Normal>60[facility] Northern CaliforniaComment on above:Performed By: #### CDP, MELVIN, BMPX, IPF #### [address] [address] [employer] Supervisor: Francisco J Fonseca MDGFR,non Amer>60Normal>60Marymount HospitalComment on above:Performed By: #### CDP, MELVIN, BMPX, IPF #### [address] [address] [employer] Supervisor: Francisco J Fonseca MDGlucose [Mass/Vol]176 mg/hFDcfe45-34UljvzSan Joaquin General HospitalComment on above:Performed By: #### CDP, MELVIN, BMPX, IPF #### [place] [address] [employer] Supervisor: Francisco J Fonseca MDPotassium [Moles/Vol]4.5 mmol/LNormal3.7-5.3 Mary[facility] HospitalComment on above:Performed By: #### CDP, MELVIN, BMPX, IPF #### [address] [address] [employer] Supervisor: Francisco J Fonseca MDSodium [Moles/Vol]138 mmol/YBcpjvy945-774XjacwMarymount HospitalComment on above:Performed By: #### CDP, MELVIN, BMPX, IPF #### [address] [address] [employer] Supervisor: Francisco J Fonseca MDUrea nitrogen [Mass/Vol]21 mg/dLNormal8-23Marymount HospitalComment on above:Performed By: #### CDP, MELVIN, BMPX, IPF #### [facility] [address] [place] [address] [employer] Supervisor: Francisco J Fonseca MD(cont.)[facility] Comment on above:Result Comment: Average GFR for 70 or more years old: 75 mL/min/1.73sq m Chronic Kidney Disease: <60 mL/min/1.73sq m Kidney failure: <15 mL/min/1.73sq m eGFR calculated using average adult body mass. Additional eGFR calculator available at: http://www.[employer].BlueCava/multiple_crcl_2012.htmPerformed By: #### CDP, MELVIN, BMPX, IPF #### [facility] [address] [place] [address] [employer] Supervisor: Francisco J Fonseca MDAnion gap [Moles/Vol]6 mmol/LLow9-17Marymount HospitalComment on above:Performed By: #### CDP, MELVIN, BMPX, IPF #### [facility] HospitalMaganda [facility] [employer] [address] [place] [address] [employer] Supervisor: Francisco J Fonseca MDCalcium [Mass/Vol]8.5 mg/dLLow8.6-10.4Marymount HospitalComment on above:Performed By: #### CDP, MELVIN, BMPX, IPF #### [facility] [address] [place] [address] [employer] Supervisor: Francisco J Fonseca MDChloride [Moles/Vol]105 mmol/OUbayoe69-416MochkMarymount HospitalComment on above:Performed By: #### CDP, MELVIN, BMPX, IPF #### [facility] [address] [place] [address] [employer] Supervisor: Francisco J Fonseca MDCO2 [Moles/Vol]25 mmol/XXwycrw96-15TczyaMarymount HospitalComment on above:Performed By: #### CDP, MELVIN, BMPX, IPF #### [facility] [address] [place] [address] [employer] Supervisor: MARLENY Brandonreatinine [Mass/Vol]0.75 mg/dLNormal0.70-1.20 Mary[facility] HospitalComment on above:Performed By: #### CDP, MELVIN, BMPX, IPF #### [address] [address] [employer] Supervisor: Francisco J Fonseca MDGFR, Amer>60Normal>60MerPalomar Medical CenterComment on above:Performed By: #### CDP, MELVIN, BMPX, IPF #### [address] [address] [employer] Supervisor: ARTURO Brandon,non Amer>60Normal>60[facility] Northern CaliforniaComment on above:Performed By: #### CDP, MELVIN, BMPX, IPF #### [address] [address] [employer] Supervisor: Francisco J Fonseca MDGlucose [Mass/Vol]81 mg/nKQyeiaa01-94GmoxaEastern Plumas District HospitalComment on above:Performed By: #### CDP, MELVIN, BMPX, IPF #### [address] [address] [employer] Supervisor: Francisco J Fonseca MDPotassium [Moles/Vol]4.6 mmol/LNormal3.7-5.3 Mary[facility] HospitalComment on above:Performed By: #### CDP, MELVIN, BMPX, IPF #### [address] [address] [employer] Supervisor: Francisco J Fonseca MDSodium [Moles/Vol]136 mmol/BPeogdy550-271ElaaqMarymount HospitalComment on above:Performed By: #### CDP, MELVIN, BMPX, IPF #### [facility] [employer] [address] [place] [address]779 [employer] Supervisor: Francisco J Fonseca MDUrea nitrogen [Mass/Vol]18 mg/dLNormal8-23Marymount HospitalComment on above:Performed By: #### CDP, MELVIN, BMPX, IPF #### [address] [address] [employer] Supervisor: MARLENY Brandon with Diffon [id number]. Basophil0.00 k/uL Normal0.0-0.2MEastern Plumas District HospitalComment on above:Performed By: #### CDP #### [address] [address] [employer] Supervisor: Vidhya Brandon.Imm.Granulocyte0.00 k/uLNormal0.00-0.30Marymount HospitalComment on above:Performed By: #### CDP #### [address] [address] [employer] Supervisor: Vidhya Brandon.Neutrophil (Seg)19.89 k/uLHigh1.8-7.7Marymount HospitalComment on above:Performed By: #### CDP #### [address] [address] [employer] Supervisor: Francisco J Fonseca MDBasophils/100 WBC (Bld)0 %Normal0-2MEastern Plumas District HospitalComment on above:Performed By: #### CDP #### [address] [address] [employer] Supervisor: Francisco J Fonseca MDEosinophils (Bld) [#/Vol]0.00 10*3/uLNormal 0.0-0.4Marymount HospitalComment on above:Performed By: #### CDP #### [address] [address] [employer] Supervisor: Francisco J Madoff, MDEosinophils/100 WBC (Bld)0 %Low1-4Marymount HospitalComment on above:Performed By: #### CDP #### [address] [address] [employer] Supervisor: Francisco J Fonseca MDImmature granulocytes/100 WBC (Bld)0 %Normal0 Marymount HospitalComment on above:Performed By: #### CDP #### [address] [address] [employer] Supervisor: Francisco J Fonseca MDLymphocytes (Bld) [#/Vol]0.88 10*3/uLLow1.0-4.8 Mary[facility] HospitalComment on above:Performed By: #### CDP #### [address] [address] [employer] Supervisor: Francisco J Fonseca MDLymphocytes/100 WBC (Bld)4 %Vsb02-38MljgxMarymount HospitalComment on above:Performed By: #### CDP #### [address] [address] [employer] Supervisor: MARK Brandononocytes (Bld) [#/Vol]1.33 10*3/uLHigh0.1-0.8 Mary[facility] HospitalComment on above:Performed By: #### CDP #### [address] [address] [employer] Supervisor: Francisco J Fonseca MDMonocytes/100 WBC (Bld)6 %Normal1-7Marymount HospitalComment on above:Performed By: #### CDP #### [address] [address] [employer] Supervisor: Francisco J Fonseca MDMorphology Walter (Bld) [Interp]MICROCYTOSIS PRESENTNormalMarymount HospitalComment on above:Result Comment: ANISOCYTOSIS PRESENT 1+ ACANTHOCYTESPerformed By: #### CDP #### [address] [address] [employer] Supervisor: Francisco J Fonseca MDNeutrophil (Seg)90 %Gise25-65BizygMarymount HospitalComment on above:Performed By: #### CDP #### [address] [address] [employer] Supervisor: Francisoc J Fonseca MDErythrocyte distribution width (RBC) [Ratio]18.9 %High11.8-14.4Marymount HospitalComment on above:Performed By: #### CDP #### [address] [address] [employer] Supervisor: Francisco J Fonseca MDHematocrit (Bld) [Volume fraction]37.4 %Low 40.7-50.3MEastern Plumas District HospitalComment on above:Performed By: #### CDP #### [address] [address] [employer] Supervisor: Francisco J Fonseca MDHemoglobin (Bld) [Mass/Vol]12.2 g/dLLow13.0-17.0 Marymount HospitalComment on above:Performed By: #### CDP #### [address] [address] [employer] Supervisor: MARK BrandonCH (RBC) [Entitic mass]26.9 jcMgukby81.2-33.5 Marymount HospitalComment on above:Performed By: #### CDP #### [address] [address] [employer] Supervisor: MARK BrandonCHC (RBC) [Mass/Vol]32.6 g/eKFcsjer09.4-34.8 Mary[facility] HospitalComment on above:Performed By: #### CDP #### [address] [place] [address] [employer] Supervisor: MARK BrandonCV (RBC) [Entitic vol]82.4 fLLow82.6-102.9Marymount HospitalComment on above:Performed By: #### CDP #### [address] [address] [employer] Supervisor: SNOIA Brandon Automated0.0 per 100 WBCNormal0.0Marymount HospitalComment on above:Performed By: #### CDP #### [address] [address] [employer] Supervisor: Meera Brandon mean volume (Bld) [Entitic vol]12.6 fL Normal8.1-13.5Marymount HospitalComment on above:Performed By: #### CDP #### [address] [address] [employer] Supervisor: Cade Brandon (Bld) [#/Vol]292 10*3/lPKlttbn919-606 Mary[facility] HospitalComment on above:Performed By: #### CDP #### [address] [address] [employer] Supervisor: YOLA Brandon (Bld) [#/Vol]4.54 10*6/uLNormal4.21-5.77 Mary[facility] HospitalComment on above:Performed By: #### CDP #### [address] [address] [employer] Supervisor: PABLO Brandon (Bld) [#/Vol]22.1 10*3/uLHigh3.5-11.3MEastern Plumas District HospitalComment on above:Performed By: #### CDP #### [address] [address] [employer] Supervisor: Francisco J Fonseca MDHemoglobin A1Con [id number] [Mass/Vol]223 mg/dLNormalMarymount HospitalComment on above:Result Comment: The ADA and AACC recommend providing the estimated average glucose result to permit better patient understanding of their HBA1c result.Performed By: #### CDP, MELVIN, BMPX, IPF #### [facility] [address] [place] [address] [employer] Supervisor: Francicso J Fonseca MDHbA1c (Bld) [Mass fraction]9.4 %High4.0-6.0Marymount HospitalComment on above:Performed By: #### CDP, MELVIN, BMPX, IPF #### [facility] [address] [place] [address] [employer] Supervisor: Francisco J Fonseca MDLaboratory - Chemistry and Chemistry - challenge on [id number] gap [Moles/Vol]12 mmol/L9 - 17 mmol/LBON [facility] Calcium [Mass/Vol]8.3 mg/dLLow8.6 - 10.4 mg/dLBON SEClarkChloride [Moles/Vol]102 mmol/L98 - 107 mmol/LBON SEClarkCO2 [Moles/Vol]21 mmol/L20 - 31 mmol/LBON SEClarkCreatinine [Mass/Vol]0.88 mg/dL0.70 - 1.20 mg/dLBON SEClarkGFR/1.73 sq M.predicted MDRD (S/P/Bld) [Vol rate/Area]BON [facility] MEDICAL CENTERlarkComment on above:Average GFR for 70 or more years old: 75 mL/min/1.73sq m Chronic Kidney Disease: <60 mL/min/1.73sq m Kidney failure: <15 mL/min/1.73sq m eGFR calculated using average adult body mass. Additional eGFR calculator available at: http://www.[employer].BlueCava/multiple_crcl_2012.htm Glucose [Mass/Vol]74 mg/dL70 - 99 mg/dLBON SECGENIAC HEALTHPhosphate [Mass/Vol]3.3 mg/dL2.5 - 4.5 mg/dLBON [facility] HOSPITALPotassium [Moles/Vol] 4.2 mmol/L3.7 - 5.3 mmol/LBON [facility] POINTE HOSPITALSodium [Moles/Vol]135 mmol/L 135 - 144 mmol/LBON [facility] HOSPITALUrea nitrogen (BldV) [Mass/Vol]29 mg/dL High8 - 23 mg/dLBON [facility] HEALTHGlucose [Mass/Vol]69 mg/dLLow75 - 110 mg/dLBON [facility] HEALTHGlucose [Mass/Vol]93 mg/dL75 - 110 mg/dLBON [facility] HOSPITALGlucose [Mass/Vol]55 mg/dLLow75 - 110 mg/dLBON [facility] Comment on above:Critical NotedGlucose [Mass/Vol]88 mg/dL75 - 110 mg/dLBON [facility] HOSPITALAnion gap [Moles/Vol]12 mmol/L9 - 17 mmol/LBON [facility] HOSPITALCalcium [Mass/Vol]8.4 mg/dLLow8.6 - 10.4 mg/dLBON [facility] Chloride [Moles/Vol]103 mmol/L98 - 107 mmol/LBON [facility] HOSPITALCO2 [Moles/Vol]21 mmol/L20 - 31 mmol/LBON [facility] HOSPITALCreatinine [Mass/Vol] 0.93 mg/dL0.70 - 1.20 mg/dLBON [facility] HOSPITALGFR/1.73 sq M.predicted MDRD (S/P/Bld) [Vol rate/Area]BON [facility] HOSPITALComment on above:Average GFR for 70 or more years old: 75 mL/min/1.73sq m Chronic Kidney Disease: <60 mL/min/1.73sq m Kidney failure: <15 mL/min/1.73sq m eGFR calculated using average adult body mass. Additional eGFR calculator available at: http://www.[employer]/multiple_crcl_2012.htm Glucose [Mass/Vol]155 mg/aOTsnv91 - 99 mg/dLBON [facility] HEALTHPhosphate [Mass/Vol]2.9 mg/dL2.5 - 4.5 mg/dLBON [facility] HEALTHPotassium [Moles/Vol] 3.9 mmol/L3.7 - 5.3 mmol/LBON [facility] HEALTHSodium [Moles/Vol]136 mmol/L 135 - 144 mmol/LBON SEC[facility]ITALY HEALTHUrea nitrogen (BldV) [Mass/Vol]28 mg/dL High8 - 23 mg/dLBON [facility] HEALTHGlucose [Mass/Vol]152 mg/kUBvmn47 - 110 mg/dLBON [facility] HEALTHGlucose [Mass/Vol]216 mg/fQXgyt08 - 110 mg/dLBON [facility] HEALTHGlucose [Mass/Vol]242 mg/rYKjai98 - 110 mg/dLBON [facility] HEALTHGlucose [Mass/Vol]243 mg/tHIvxh76 - 110 mg/dLBON [facility] HEALTHAnion gap [Moles/Vol]11 mmol/L9 - 17 mmol/LBON [facility] HEALTHCalcium [Mass/Vol]8.4 mg/dLLow8.6 - 10.4 mg/dLBON [facility] HEALTHChloride [Moles/Vol]103 mmol/L98 - 107 mmol/LBON [facility] HEALTHCO2 [Moles/Vol]24 mmol/L20 - 31 mmol/LBON [facility]OS[facility]ITALY HEALTHCreatinine [Mass/Vol]0.92 mg/dL0.70 - 1.20 mg/dLBON [facility] MERCY HEALTHGFR/1.73 sq M.predicted MDRD (S/P/Bld) [Vol rate/Area]BON [facility] HOSPITALComment on above:Average GFR for 70 or more years old: 75 mL/min/1.73sq m Chronic Kidney Disease: <60 mL/min/1.73sq m Kidney failure: <15 mL/min/1.73sq m eGFR calculated using average adult body mass. Additional eGFR calculator available at: http://www.[employer]y/multiple_crcl_2012.htm Glucose [Mass/Vol]226 mg/tFVvee12 - 99 mg/dLBON [facility] MERCY HEALTHPhosphate [Mass/Vol]3.5 mg/dL2.5 - 4.5 mg/dLBON [facility] HEALTHPotassium [Moles/Vol] 5.0 mmol/L3.7 - 5.3 mmol/LBON [facility] HEALTHSodium [Moles/Vol]138 mmol/L 135 - 144 mmol/LBON [facility] HEALTHUrea nitrogen (BldV) [Mass/Vol]26 mg/dL High8 - 23 mg/dLBON [facility] HEALTHGlucose [Mass/Vol]214 mg/sAPkmi01 - 110 mg/dLBON [facility] HEALTHAnion gap [Moles/Vol]13 mmol/L9 - 17 mmol/LBON [facility] HEALTHCalcium [Mass/Vol]8.4 mg/dLLow8.6 - 10.4 mg/dLBON [facility] HEALTHChloride [Moles/Vol]104 mmol/L98 - 107 mmol/LBON [facility] HEALTHCO2 [Moles/Vol]21 mmol/L20 - 31 mmol/LBON [facility] HEALTHCreatinine [Mass/Vol]0.84 mg/dL0.70 - 1.20 mg/dLBON [facility] HEALTHGFR/1.73 sq M.predicted MDRD (S/P/Bld) [Vol rate/Area][facility]OSPITALComment on above:Average GFR for 70 or more years old: 75 mL/min/1.73sq m Chronic Kidney Disease: <60 mL/min/1.73sq m Kidney failure: <15 mL/min/1.73sq m eGFR calculated using average adult body mass. Additional eGFR calculator available at: http://www.[employer].BlueCava/multiple_crcl_2011.htm Glucose [Mass/Vol]176 mg/uKXcma68 - 99 mg/dLBON [facility] HEALTHPhosphate [Mass/Vol]3.1 mg/dL2.5 - 4.5 mg/dLBON [facility] HEALTHPotassium [Moles/Vol] 4.5 mmol/L3.7 - 5.3 mmol/LBON [facility] HEALTHSodium [Moles/Vol]138 mmol/L 135 - 144 mmol/LBON [facility] HEALTHUrea nitrogen (BldV) [Mass/Vol]21 mg/dL8 - 23 mg/dLBON [facility] HEALTHGlucose [Mass/Vol]126 mg/vCTktl62 - 110 mg/dL BON SECMULT[facility]ITALY HEALTHGlucose [Mass/Vol]165 mg/zGZcgh68 - 110 mg/dLBON [facility] HEALTHGlucose [Mass/Vol]142 mg/pNXmdq36 - 110 mg/dLBON [facility] HEALTHGlucose [Mass/Vol]89 mg/dL75 - 110 mg/dLBON [facility] HEALTHGlucose [Mass/Vol]71 mg/dLLow75 - 110 mg/dLBON [facility] HEALTHGlucose [Mass/Vol]82 mg/dL75 - 110 mg/dLBON [facility] HEALTHGlucose [Mass/Vol]128 mg/zNUsni57 - 110 mg/dLBON SECASHTABULA GENERAL HOSPITALAnion gap [Moles/Vol]6 mmol/LLow9 - 17 mmol/L [facility]OSPITALCalcium [Mass/Vol]8.5 mg/dLLow8.6 - 10.4 mg/dLBON [facility] HEALTHChloride [Moles/Vol]105 mmol/L98 - 107 mmol/LBON [facility]OSPITALCO2 [Moles/Vol]25 mmol/L20 - 31 mmol/LBON [facility] Creatinine [Mass/Vol]0.75 mg/dL0.70 - 1.20 mg/dLBON [facility] HOSPITALGFR/1.73 sq M.predicted MDRD (S/P/Bld) [Vol rate/Area][facility]OSPITALComment on above:Average GFR for 70 or more years old: 75 mL/min/1.73sq m Chronic Kidney Disease: <60 mL/min/1.73sq m Kidney failure: <15 mL/min/1.73sq m eGFR calculated using average adult body mass. Additional eGFR calculator available at: http://www.[employer].BlueCava/multiple_crcl_2012.htm Glucose [Mass/Vol]81 mg/dL70 - 99 mg/dLBON [facility] HEALTHPhosphate [Mass/Vol]2.5 mg/dL2.5 - 4.5 mg/dLBON [facility]OSPITALPotassium [Moles/Vol] 4.6 mmol/L3.7 - 5.3 mmol/LBON [facility] HEALTHSodium [Moles/Vol]136 mmol/L 135 - 144 mmol/LBON [facility]CY HEALTHUrea nitrogen (BldV) [Mass/Vol]18 mg/dL8 - 23 mg/dLBON [facility] HOSPITALGlucose [Mass/Vol]187 mg/gKRzbl71 - 110 mg/dL [facility] HOSPITALLaboratory - Hematology and Cell countson 01-03-2022 Basophils (Bld) [#/Vol]0.00 10*3/uLBON [facility] HOSPITALBasophils/100 WBC (Bld)0 %0 - 2 %[facility] HOSPITALEosinophils/100 WBC (Bld)0 %Low1 - 4 %[facility] HOSPITALHematocrit (Bld) [Volume fraction]37.4 %Low40.7 - 50.3 %[facility] HOSPITALHemoglobin (Bld) [Mass/Vol]12.2 g/dLLow13.0 - 17.0 g/dLBON [facility] HOSPITALImmature granulocytes/100 WBC (Bld)0 %0BON [facility] HOSPITALLymphocytes/100 WBC (Bld)4 %Low24 - 44 %[facility]OSPITALH (RBC) [Entitic mass]26.9 pg25.2 - 33.5 pgINOVA LOUDOUN HOSPITALHC (RBC) [Mass/Vol] 32.6 g/dL28.4 - 34.8 g/dLBON WO[facility] COUNTY HOSPITALV (RBC) [Entitic vol]82.4 fL Low82.6 - 102.9 fLDOMINION HOSPITALMonocytes/100 WBC (Bld)6 %1 - 7 %[facility] HOSPITALMorphology Walter (Bld) [Interp]MICROCYTOSIS PRESENTDOMINION HOSPITALMorphology Walter (Bld) [Interp]ANISOCYTOSIS PRESENTDOMINION HOSPITALMorphology Walter (Bld) [Interp]1+ ACANTHOCYTESDOMINION HOSPITAL Platelet distribution width (Bld) [Ratio]18.9 %High11.8 - 14.4 %DOMINION HOSPITALPlatelet mean volume (Bld) [Entitic vol]12.6 fL8.1 [...] of laboratory resultsAbnormalBON SECOURS MERCY HEALTHB[facility]Y HEALTH Interpretation and review of laboratory [...] MERCY HEALTHAbsolute Lymph #0.88LowBON SECOURS [facility] HEALTHAbsolute [place] #1.33HighBON SECOURS [facility]STER MUNICIPAL HOSPITALY HEALTHInterpretation and review of laboratory resultsAbnormalBON SECOURS [facility]OSPITALY HEALTHNRBC Automated0.00.0 per 100 WBCBON SECOURS MERCY HEALTHSegs Didemjtm76.89 HighBON SECOURS MERCY HEALTHBON [facility]CY HEALTHGFR >60>60 mL/minBON [facility] MERCY HEALTHGFR Non->60>60 mL/minBON [facility]RS MERCY HEALTHInterpretation and review of laboratory resultsAbnormalBON [facility] HEALTHB[facility] HEALTHInterpretation and review of laboratory resultsAbnormalBON [facility] HEALTHBON [facility]OSPITALY HEALTHInterpretation and review of laboratory resultsAbnormalBON [facility] HEALTHBON [facility] MERCY HEALTHGFR >60>60 mL/minBON SEC[facility]RS MERCY HEALTHGFR Non- >60>60 mL/minBON [facility]RS MERCY HEALTHInterpretation and review of laboratory resultsAbnormalBON SECOU[facility]ICIPAL HOSPITALY HEALTHB[facility]ALTH Interpretation and review of laboratory resultsAbnormalBON [facility] HE[facility] HEALTHPhosphorus, Inorg.on [id number], Inorg.3.3 mg/dLNormal2.5-4.5Mary[facility] HospitalComment on above:Performed By: #### CDP, MELVIN, BMPX, IPF #### Arden Reed [address] [place] [address] [employer] Supervisor: DENISE Brandonhosphorus, Inorg.2.9 mg/dLNormal2.5-4.5[facility] HospitalComment on above:Performed By: #### CDP #### [facility] [address] [place], [place] [id number] [employer] Supervisor: DENISE Brandonhosphorus, Inorg.3.5 mg/dLNormal2.5-4.5[facility] HospitalComment on above:Performed By: #### CDP, MELVIN, BMPX, IPF #### [facility] [address] [place] [id number] [employer] Supervisor: Eliane Brandonsphokhari, Inorg.3.1 mg/dLNormal2.5-4.5Marymount HospitalComment on above:Performed By: #### CDP, MELVIN, BMPX, IPF #### [facility] [facility] [address] [place] [address] [employer] Supervisor: Eliane Brandonsphostephs, Inorg.2.5 mg/dLNormal2.5-4.5Marymount HospitalComment on above:Performed By: #### CDP, MELVIN, BMPX, IPF #### [facility] [address] [place], [place] [id number] [employer] Supervisor: GAGE BrandonR ABDOMEN FOR NG/OG/NE TUBE PLACEMENTon [id number] ABDOMEN FOR NG/OG/NE TUBE PLACEMENTEXAMINATION: ONE SUPINE [...] Signed by: Eulogio Winslow MD 01/02/22 Final resultNormalMarymount HospitalAMYLASEon 87-21-9925Sgnuwpt [Catalytic activity/Vol]13 U/LCritically sgj93-855KmkDiley Ridge Medical CenterComment on above:Performed By: #### LIPA, MARGA, LIVER, BMP #### [facility] [address] [place], [place] [address] Dr. Kylee Christiansen Metabolic Profon 35-08-2628Vhsdqbi [Mass/Vol]452 mg/dL Critically ervf52-52Nuyid Fullerton Medical CenterComment on above:Performed By: #### CDP #### [facility] HospitalMag[facility] [employer] [address] [place] [address] [employer] Supervisor: Francisco J Fonseca MD(cont.)[facility] Comment on above:Result Comment: Average GFR for 70 or more years old: 75 mL/min/1.73sq m Chronic Kidney Disease: <60 mL/min/1.73sq m Kidney failure: <15 mL/min/1.73sq m eGFR calculated using average adult body mass. Additional eGFR calculator available at: http://www.Smarp Oy/multiple_crcl_2012.htmPerformed By: #### CDP #### [facility] [employer] [address] [place] [address] [employer] Supervisor: Francisco J Fonseca MDAnion gap [Moles/Vol]12 mmol/LNormal9-17Marymount HospitalComment on above:Performed By: #### CDP #### [facility] [address] [place] [address] [employer] Supervisor: Francisco J Fonseca MDCalcium [Mass/Vol]8.6 mg/dLNormal8.6-10.4Marymount HospitalComment on above:Performed By: #### CDP #### [facility] [address] [place] [address] [employer] Supervisor: Francisco J Fonseca MDChloride [Moles/Vol]96 mmol/POnr77-493CfgvpMarymount HospitalComment on above:Performed By: #### CDP #### [facility] [address] [place] [address] [employer] Supervisor: Francisco J Fonseca MDCO2 [Moles/Vol]22 mmol/LYzvhqx52-54GgkppMarymount HospitalComment on above:Performed By: #### CDP #### [facility] [address] [place] [address] [employer] Supervisor: MARLENY Brandonreatinine [Mass/Vol]0.81 mg/dLNormal0.70-1.20 Marymount HospitalComment on above:Performed By: #### CDP #### [address] [address] [employer] Supervisor: Francisco J Fonseca MDGFR, Amer>60Normal>60MerPalomar Medical CenterComment on above:Performed By: #### CDP #### [address] [address] [employer] Supervisor: ARTURO Brandon,non Amer>60Normal>60Marymount HospitalComment on above:Performed By: #### CDP #### [address] [address] [employer] Supervisor: DENISE Brandonotassium [Moles/Vol]4.1 mmol/LNormal3.7-5.3 Marymount HospitalComment on above:Performed By: #### CDP #### [address] [address] [employer] Supervisor: MEIR Brandonodium [Moles/Vol]130 mmol/YIet898-753WvpwfMarymount HospitalComment on above:Performed By: #### CDP #### [address] [address] [employer] Supervisor: Francisco J Fonseca MDUrea nitrogen [Mass/Vol]19 mg/dLNormal8-23Marymount HospitalComment on above:Performed By: #### CDP #### [address] [address] [employer] Supervisor: MARLENY BrandonBC AUTO DIFFon 45-90-5478VPPI #0.0 103/ulNormal 0.0-0.1Diley Ridge Medical CenterComment on above:Performed By: #### CMP, LIPID #### [facility] [address] [place] [address] Dr. Kylee BunchBasophils/100 WBC (Bld)0.2 %Normal0.2-2.0The [facility] Comment on above:Performed By: #### CMP, LIPID #### [facility] [address] [place] [address] Dr. Kylee Del Castillo #0.1 103/ulNormal0.0-0.7The The Jewish HospitalComment on above: Performed By: #### CMP, LIPID #### [facility] [address] [place] [address] Dr. Kylee Steinbergosinophils/100 WBC (Bld)0.5 %Critically low0.9-7.0The The Jewish HospitalComment on above:Performed By: #### CMP, LIPID #### [facility] [address] [place] [address] Dr. Kylee Steinbergrythrocyte distribution width (RBC) [Ratio]18.5 %Critically high 11.0-15.0The The Jewish HospitalComment on above:Performed By: #### CMP, LIPID #### [facility] [address] [place] [address] Dr. Kylee BunchHematocrit (Bld) [Volume fraction]37.0 %Critically low42.0-54.0 The The Jewish HospitalComment on above:Performed By: #### CMP, LIPID #### [facility] [address] [place] [address] Dr. Kylee BunchHemoglobin (Bld) [Mass/Vol]12.6 g/dLCritically low14.0-18.0The The Jewish HospitalComment on above:Performed By: #### CMP, LIPID #### [facility] [address] [place] [address] Dr. Kylee Mckoy #0.02 10e3/ulNormal0.00-0.03The The Jewish HospitalComment on above:Performed By: #### CMP, LIPID #### [facility] [address] [place] [address] Dr. Kylee Mckoy %0.2 %Normal0.0-0.5The The Jewish HospitalComment on above: Performed By: #### CMP, LIPID #### [facility] [address] [place] [address] Dr. Kylee Jones #1.2 103/ulNormal1.2-3.8The The Jewish HospitalComment on above:Performed By: #### CMP, LIPID #### [facility] [address] [place] [address] Dr. Kylee Casashocytes/100 WBC (Bld)11.3 %Critically low20.5-60.0The The Jewish HospitalComment on above:Performed By: #### CMP, LIPID #### [facility] [address] [place] [address] Dr. Kylee BauerUAL DIFF REQNONormalThe The Jewish HospitalComment on above: Performed By: #### CMP, LIPID #### [facility] [address] [place] [address] Dr. Kylee Beasley (RBC) [Entitic mass]27.1 yjYijvtz80.9-34.0The The Jewish HospitalComment on above:Performed By: #### CMP, LIPID #### [facility] [address] [place] [address] Dr. Kylee Beasley (RBC) [Mass/Vol]34.1 g/oBOiylpf47.9-35.2The The Jewish HospitalComment on above:Performed By: #### CMP, LIPID #### [facility] [address] [place] [address] Dr. Kylee Beasley (RBC) [Entitic vol]79.6 fLCritically low80.0-94.0The The Jewish HospitalComment on above:Performed By: #### CMP, LIPID #### [facility] [address] [place] [address] Dr. Kylee Abarca #0.5 103/ulNormal0.3-0.8The Salisbury HospitalComment on above:Performed By: #### CMP, LIPID #### [facility] [address] [place] [address] [address] Kylee Mirelesocytes/100 WBC (Bld)4.5 %Normal1.7-12.0The [facility] Comment on above:Performed By: #### CMP, LIPID #### [facility] [address] [place] [address] Dr. Kylee Shook #8.5 103/ulCritically high1.4-6.5The [facility] Comment on above:Performed By: #### CMP, LIPID #### [facility] [address] [place] [address] Dr. Kylee Martinutrophils/100 WBC (Bld)83.3 %Critically high43.0-75.0The The Jewish HospitalComment on above:Performed By: #### CMP, LIPID #### [facility] [address] [place] [address] Dr. Kylee BunchPlatelet mean volume (Bld) [Entitic vol]12.6 fLNormal9.5-13.5The The Jewish HospitalComment on above:Performed By: #### CMP, LIPID #### [facility] [address] [place] [address] Dr. Kylee BunchPLT335 103/ytEyjrlo823-180Tyz The Jewish HospitalComment on above: Performed By: #### CMP, LIPID #### [facility] [address] [place] [address] Dr. Kylee BunchRBC4.65 106/ulCritically low4.70-6.10The The Jewish HospitalComment on above:Performed By: #### CMP, LIPID #### [facility] [address] [place] [address] Dr. Kylee BunchWBC10.2 103/ulNormal4.0-11.0The The Jewish HospitalComment on above:Performed By: #### CMP, LIPID #### [facility] [address] [place] [address] Dr. Kylee Locke with Diffon [id number]. Basophil0.00 k/uLNormal0.00-0.20 Marymount HospitalComment on above:Performed By: #### CDP, MELVIN, BMPX, IPF #### [place] [address] [employer] Supervisor: MDAbs. RomaImm.Granulocyte0.00 k/uLNormal0.00-0.30Marymount HospitalComment on above:Performed By: #### CDP, MELVIN, BMPX, IPF #### [place] [address] [employer] Supervisor: Vidhya Brandon.Neutrophil (Seg)19.47 k/uLHigh1.50-8.10Marymount HospitalComment on above:Performed By: #### CDP, MELVIN, BMPX, IPF #### [place] [address] [employer] Supervisor: Francisco J Fonseca MDBasophils/100 WBC (Bld)0 %Normal0-2MEastern Plumas District HospitalComment on above:Performed By: #### CDP, MELVIN, BMPX, IPF #### [place] [address] [employer] Supervisor: Francisco J Fonseca MDEosinophils (Bld) [#/Vol]0.00 10*3/uLNormal 0.00-0.44Marymount HospitalComment on above:Performed By: #### CDP, MELVIN, BMPX, IPF #### [address] [address] [employer] Supervisor: Francisco J Fonseca MDEosinophils/100 WBC (Bld)0 %Low1-4Marymount HospitalComment on above:Performed By: #### CDP, MELVIN, BMPX, IPF #### [address] [address] [employer] Supervisor: Mark Brandonture granulocytes/100 WBC (Bld)0 %Normal0 Marymount HospitalComment on above:Performed By: #### CDP, MELVIN, BMPX, IPF #### [facility] [address] [place] [address] [employer] Supervisor: Francisco J Fonseca MDLymphocytes (Bld) [#/Vol]0.41 10*3/uLLow 1.10-3.70Marymount HospitalComment on above:Performed By: #### CDP, MELVIN, BMPX, IPF #### [facility] [address] [place] [address] [employer] Supervisor: Jeremie Brandonmphocytes/100 WBC (Bld)2 %Gwj10-20LhlbbMarymount HospitalComment on above:Performed By: #### CDP, MELVIN, BMPX, IPF #### [address] [address] [employer] Supervisor: MARK Brandononocytes (Bld) [#/Vol]0.62 10*3/uLNormal 0.10-1.20Marymount HospitalComment on above:Performed By: #### CDP, MELVIN, BMPX, IPF #### [facility] [address] [place] [address] [employer] Supervisor: MARK Brandononocytes/100 WBC (Bld)3 %Normal3-12Marymount HospitalComment on above:Performed By: #### CDP, MELVIN, BMPX, IPF #### [facility] [address] [place] [address] [employer] Supervisor: MARK Brandonorphology Walter (Bld) [Interp]ANISOCYTOSIS PRESENTNormalMarymount HospitalComment on above:Performed By: #### CDP, MELVIN, BMPX, IPF #### [facility] [address] [place] [address] [employer] Supervisor: Francisco J Madoff, MDNeutrophil (Seg)95 %Kzba55-36MjzknMarymount HospitalComment on above:Performed By: #### CDP, MELVIN, BMPX, IPF #### [facility] [address] [place] [address] [employer] Supervisor: Francisco J Fonseca MDErythrocyte distribution width (RBC) [Ratio]18.3 %High11.8-14.4Marymount HospitalComment on above:Performed By: #### CDP, MELVIN, BMPX, IPF #### [facility] [address] [place] [address] [employer] Supervisor: Francisco J Fonseca MDHematocrit (Bld) [Volume fraction]38.9 %Low 40.7-50.3MEastern Plumas District HospitalComment on above:Performed By: #### CDP, MELVIN, BMPX, IPF #### [facility] [address] [place] [address] [employer] Supervisor: Francisco J Fonseca MDHemoglobin (Bld) [Mass/Vol]12.9 g/dLLow13.0-17.0 Marymount HospitalComment on above:Performed By: #### CDP, MELVIN, BMPX, IPF #### [facility] [address] [place] [address] [employer] Supervisor: MARK BrandonCH (RBC) [Entitic mass]26.9 vtRxmfjv93.2-33.5 Marymount HospitalComment on above:Performed By: #### CDP, MELVIN, BMPX, IPF #### [facility] [address] [place] [address] [employer] Supervisor: MARK BrandonCHC (RBC) [Mass/Vol]33.2 g/bCPpzwwv02.4-34.8 Mary[facility] HospitalComment on above:Performed By: #### CDP, MELVIN, BMPX, IPF #### [facility] [address] [place] [address] [employer] Supervisor: MARK BrandonCV (RBC) [Entitic vol]81.2 fLLow82.6-102.9Marymount HospitalComment on above:Performed By: #### CDP, MELVIN, BMPX, IPF #### [address] [address] [employer] Supervisor: SONIA Brandon Automated0.0 per 100 WBCNormal0.0Marymount HospitalComment on above:Performed By: #### CDP, MELVIN, BMPX, IPF #### [address] [address] [employer] Supervisor: Meera Brandon mean volume (Bld) [Entitic vol]12.4 fL Normal8.1-13.5Marymount HospitalComment on above:Performed By: #### CDP, MELVIN, BMPX, IPF #### [facility] [address] [place] [address] [employer] Supervisor: Cade Brandon (Bld) [#/Vol]324 10*3/aTSgsgxe982-101 Mary[facility] HospitalComment on above:Performed By: #### CDP, MELVIN, BMPX, IPF #### [facility] [address] [place] [address] [employer] Supervisor: YOLA Brandon (Bld) [#/Vol]4.79 10*6/uLNormal4.21-5.77 Marymount HospitalComment on above:Performed By: #### CDP, MELVIN, BMPX, IPF #### [facility] [address] [place] [address] [employer] Supervisor: PABLO Brandon (Bld) [#/Vol]20.5 10*3/uLHigh3.5-11.3MEastern Plumas District HospitalComment on above:Performed By: #### CDP, MELVIN, BMPX, IPF #### [facility] [address] [place] [address] [employer] Supervisor: Francisco J Fonseca, MDCT ABD/PELV W CONon [id number] ABD/PELV W CON EXAMINATION: CT ABD/PELV W [...] identified. Background diffuse body wall edema with nufpw-qb-xdsevigl volume of abdominal and pelvic ascites noted. [...] 9:09 AM on 01/02/2022. Electronically authenticated by: [employer] Date: 2022-01-02 09:27[facility]stownCovid-19 PCR (CVDTB)on 31-47-1301NPOI-CoV-2 (COVID-19) RNA ANASTASIA+probe Ql (Unsp spec)Not detectedNormalNOT DETECTEDThe [facility] Comment on above:Result Comment: When diagnostic [...] for this test is supported by the [place] of Health and Human Service's declaration that [...] longer be used).Performed By: #### CVDTBH #### [facility] [address] [place] [address] Dr. Kylee Forbes URINE PROFILEon 75-77-2673Qklfyjdcr Ql (U)NegativeNormal NEGATIVEDiley Ridge Medical CenterComment on above:Performed By: #### CMP, LIPID #### [facility] [address] [place] [address] Dr. Kylee Bricenoarity (U)CLEARNormalCLEARDiley Ridge Medical CenterComment on above: Performed By: #### CMP, LIPID #### [facility] [address] [place] [address] Dr. Kylee De La Garza (U)LT. YELLOWNormalYELLOWDiley Ridge Medical CenterComment on above:Performed By: #### CMP, LIPID #### [facility] [address] [place] [address] Dr. Kylee Moe micrscopic examination will be performed if indicated. NormalDiley Ridge Medical CenterComment on above:Performed By: #### CMP, LIPID #### [facility] [address] [place] [address] Dr. Kylee BunchHemoglobin Ql (U)TRACE-INTACTAbnormalNEGATIVEDiley Ridge Medical CenterComment on above:Performed By: #### CMP, LIPID #### [facility] [address] [place] [address] Dr. Kylee BunchKetones Ql (U)15 mg/dlAbnormalNEGATIVEThe [facility] Comment on above:Performed By: #### CMP, LIPID #### [facility] [address] [address] [address] Kylee BunchLEUKOCYTESNegativeNormalNEGATIVEThe [facility] HospitalComment on above:Performed By: #### CMP, LIPID #### [facility] [address] [address] [address] Kylee Royaltrite Ql (U)NegativeNormalNEGATIVEThe [facility] HospitalComment on above:Performed By: #### CMP, LIPID #### [facility] [address] [address] [address] Kylee uBnchpH (U)5.5 [pH]Normal5-9The The [facility] HospitalComment on above: Performed By: #### CMP, LIPID #### [facility] [address] [place] [address] Dr. Kylee BunchSPEC GRAVITY1.516Gjfzvw0.005-<=1.025The [facility] HospitalComment on above:Performed By: #### CMP, LIPID #### [facility] [address] [place] [address] Dr. Kylee Rodas PROTEINNegativeNormalNEGATIVE/ TRACEThe [facility] Comment on above:Performed By: #### CMP, LIPID #### [facility] [address] [place] [address] Dr. Kylee Mae MICRO INDINDICATEDNormalThe The Jewish HospitalComment on above: Performed By: #### CMP, LIPID #### [facility] [address] [place] [address] Dr. Kylee Correiabilinogen Qn (U)0.2 {Gemini'U}/dLNormal0.2 - 1.0The The [facility] HospitalComment on above:Performed By: #### CMP, LIPID #### [facility] [address] [place] [address] Dr. Kylee JhaASEon 15-21-5678Oimydn [Catalytic activity/Vol]9.0 U/L Critically low73.0-393.0The The [facility] HospitalComment on above:Performed By: #### LIPA, MARGA, LIVER, BMP #### [facility] [address] [place] [address] Dr. Kylee Narayan PROFILEon 45-74-7862Ezctjyb [Mass/Vol]3.3 g/dLCritically low3.4-5.0The The [facility] HospitalComment on above:Performed By: #### LIPA, MARGA, LIVER, BMP #### [facility] [address] [place] [address] Dr. Kylee BunchAlbumin/Globulin [Mass ratio]0.9 {ratio}NormalThe The [facility] HospitalComment on above:Performed By: #### LIPA, MARGA, LIVER, BMP #### [facility] [address] [place] [address] Dr. Kylee Forman [Catalytic activity/Vol]116 U/AFonipz44-186Ise The [facility] HospitalComment on above:Performed By: #### LIPA, MARGA, LIVER, BMP #### [facility] [address] [place] [address] Dr. Kylee Shelton [Catalytic activity/Vol]21 U/ECanbpd61-96Tow The [facility] HospitalComment on above:Performed By: #### LIPA, MARGA, LIVER, BMP #### [facility] [address] [place] [address] Dr. Kylee Mccormack [Catalytic activity/Vol]24 U/OGnbhgv20-50Dei [facility] on above:Performed By: #### LIPA, MARGA, LIVER, BMP #### [facility] [address] [place] [address] Dr. Kylee Calhoun, CONJUGATED0.1 mg/dLNormal0.0-0.2The [facility] Comment on above:Performed By: #### LIPA, MARGA, LIVER, BMP #### [facility] [address] [place] [address] Dr. Kylee Santoirubin [Mass/Vol]0.6 mg/dLNormal0.2-1.0The [facility] Comment on above:Performed By: #### LIPA, MARGA, LIVER, BMP #### [facility] [address] [place], [place] [address] Dr. Kylee BunchGlobulin (S) [Mass/Vol]3.6 g/dLNormalThe [facility] HospitalComment on above:Performed By: #### LIPA, MARGA, LIVER, BMP #### [facility] [address] [place], [place] [address] Dr. Kylee BunchProtein [Mass/Vol]6.9 g/dLNormal6.4-8.2The [facility] Comment on above:Performed By: #### LIPA, MARGA, LIVER, BMP #### [facility] [address] [place], [place] [address] Dr. Kylee BunchLaboratory - Chemistry and Chemistry - challengeon 01-02-2022 Glucose [Mass/Vol]223 mg/dLBON CLEVELAND CLINIC SOU[facility] POINTE HOSPITALComment on above:The ADA and AACC recommend providing the estimated average glucose result to permit better patient understanding of their HBA1c result. Glucose [Mass/Vol]227 mg/dSNvxb03 - 110 mg/dLBON [facility] HEALTHGlucose [Mass/Vol]290 mg/nRWkel24 - 110 mg/dLBON [facility] HEALTHGlucose [Mass/Vol] 300 mg/rIGkkz99 - 110 mg/dLBON [facility] HEALTHGlucose [Mass/Vol]323 mg/dL High75 - 110 mg/dLBON SECASHTABULA GENERAL HOSPITALAnion gap [Moles/Vol]12 mmol/L9 - 17 mmol/LBON [facility] HEALTHCalcium [Mass/Vol]8.6 mg/dL8.6 - 10.4 mg/dLBON [facility]AUREG[facility] HEALTHChloride [Moles/Vol]96 mmol/LLow98 - 107 mmol/LBON [facility] HEALTHCO2 [Moles/Vol]22 mmol/L20 - 31 mmol/LBON [facility] Creatinine [Mass/Vol]0.81 mg/dL0.70 - 1.20 mg/dLBON SECMULTICARE ALLENMORE [facility]OSPITALY HEALTHGFR/1.73 sq M.predicted MDRD (S/P/Bld) [Vol rate/Area]BON [facility] POINTE HOSPITALComment on above:Average GFR for 70 or more years old: 75 mL/min/1.73sq m Chronic Kidney Disease: <60 mL/min/1.73sq m Kidney failure: <15 mL/min/1.73sq m eGFR calculated using average adult body mass. Additional eGFR calculator available at: http://www.Smarp Oy/multiple_crcl_2012.htm Glucose [Mass/Vol]452 mg/dLCritically high70 - 99 mg/dLBON [facility] Potassium [Moles/Vol]4.1 mmol/L3.7 - 5.3 mmol/LBON CLEVELAND CLINIC SOUTH POINTE HOSPITALSodium [Moles/Vol]130 mmol/DMat291 - 144 mmol/LBON [facility]IC SOU[facility] POINTE HOSPITALUrea nitrogen (BldV) [Mass/Vol]19 mg/dL8 - 23 mg/dLBON C[facility] PO[facility]TE HOSPITALAlbumin [Mass/Vol] 3.6 g/dL3.5 - 5.2 g/dLBON [facility] HOSPITALAlbumin/Globulin [Mass ratio]1.3 {ratio}BON [facility] POINTE HOSPITALALP (Bld) [Catalytic activity/Vol]100 U/L40 - 129 U/LBON [facility] POINTE HOSPITALALT [Catalytic activity/Vol]15 U/L5 - 41 U/LBON [facility] S[facility] POINTE HOSPITALAST [Catalytic activity/Vol]18 U/L<40BON [facility] POINTE HOSPITALBilirubin [Mass/Vol]0.45 mg/dL0.3 - 1.2 mg/dLBON [facility] Bilirubin.indirect [Mass/Vol]0.17 mg/dL<0.31BON [facility] HOSPITALFree PSA/Total PSA [Mass fraction]6.4 g/dL6.4 - 8.3 g/dLBON [facility] Glucose [Mass/Vol]433 mg/dLCritically high75 - 110 mg/dLBON [facility] Comment on above:Critical NotedLaboratory - Coagulationon [id number] Coag (Bld) [Relative time]1.2 {INR}[facility] HOSPITALComment on above: Therapeutic Range: Moderate Anticoagulant Intensity: INR = 2.0-3.0 High Anticoagulant Intensity: INR = 2.5-3.5 PT Coag (PPP) [Time]12.5 sHighBON C[facility] CL[facility] S[facility] POINTE HOSPITALLaboratory - Hematology and Cell countson 80-78-8560ZaM7s (Bld) [Mass fraction]9.4 %High4.0 - 6.0 %B[facility] HEALTHBasophils (Bld) [#/Vol]0.00 10*3/uLBON [facility] Basophils/100 WBC (Bld)0 %0 - 2 %BON SECASHTABULA GENERAL HOSPITALEosinophils/100 WBC (Bld)0 %Low1 - 4 %BON [facility]ASHTABULA GENERAL HOSPITALHematocrit (Bld) [Volume fraction]38.9 %Low40.7 - 50.3 %B[facility] HOSPITALHemoglobin (Bld) [Mass/Vol]12.9 g/dLLow 13.0 - 17.0 g/dLBON SECASHTABULA GENERAL HOSPITALImmature granulocytes/100 WBC (Bld)0 %0 [facility] TROYLymphocytes/100 WBC (Bld)2 %Low24 - 43 %[facility] HOSPITALH (RBC) [Entitic mass]26.9 pg25.2 - 33.5 pgBON SECMEMORIAL HOSPITALHC (RBC) [Mass/Vol]33.2 g/dL28.4 - 34.8 g/dLBON SECMEMORIAL HOSPITALV (RBC) [Entitic vol]81.2 fLLow82.6 - 102.9 fLDOMINION HOSPITAL Monocytes/100 WBC (Bld)3 %3 - 12 %B[facility] HOSPITALMorphology Walter (Bld) [Interp]ANISOCYTOSIS PRESENTBON [facility]AUREG[facility]ITAL HEALTHPlatelet distribution width (Bld) [Ratio]18.3 %High11.8 - 14.4 %[facility] HEALTHPlatelet mean volume (Bld) [Entitic vol]12.4 fL8.1 - 13.5 fLBON [facility]AUREGARD MEMORIAL [facility]OSPITAL HEALTHPlatelets (Bld) [#/Vol]324 10*3/uLBON [facility] HEALTHRBC (Bld) [#/Vol]4.79 10*6/uL4.21 - 5.77 m/uLBON SECASHTABULA GENERAL HOSPITALSegmented neutrophils/100 WBC (Bld)95 %High36 - 65 %BON SECASHTABULA GENERAL HOSPITALWBC (Bld) [#/Vol]20.5 10*3/uLHighBON SECOURS KETTERING HEALTH TROYLactate, Sepsison 20-32-3647Qngwtd Acid,Sep Wbld1.7 mmol/LNormal0.5-1.9 Marymount HospitalComment on above:Performed By: #### CDP, MELVIN, BMPX, IPF #### [facility] [place] [address] [employer] Supervisor: Beatrice Brandon Profileon [id number] [Mass/Vol]3.6 g/dLNormal3.5-5.2MEastern Plumas District HospitalComment on above:Performed By: #### CDP #### [address] [address] [employer] Supervisor: Francisco J Fonseca MDAlbumin/Glob Ratio1.8Nqmxoo3.0-2.5Marymount HospitalComment on above:Performed By: #### CDP #### [facility] [employer] [address] [place] [address] [employer] Supervisor: Angie Brandon Hyxg140 U/MKvexyy22-041JdlgmMarymount HospitalComment on above:Performed By: #### CDP #### [facility] [employer] [address] [place] [address] [employer] Supervisor: Francisco J Fonseca MDALT [Catalytic activity/Vol]15 U/LNormal5-41 Marymount HospitalComment on above:Performed By: #### CDP #### [facility] [employer] [address] [place] [address] [employer] Supervisor: Francisco J Fonseca MDAST [Catalytic activity/Vol]18 U/LNormal<40Marymount HospitalComment on above:Performed By: #### CDP #### [facility] [employer] [address] [place] [address] [employer] Supervisor: Francisco J Fonseca MDBilirubin [Mass/Vol]0.45 mg/dLNormal0.3-1.2Mgrand lake joint township district memorial hospitaly [facility] Northern CaliforniaComment on above:Performed By: #### CDP #### [facility] [employer] [address] [place] [address] [employer] Supervisor: Francisco J Fonseca MDBilirubin, Indirect0.28 mg/dLNormal0.00-1.00 Marymount HospitalComment on above:Performed By: #### CDP #### [facility] [address] [place] [address] [employer] Supervisor: Krishna Brandonirubin.indirect [Mass/Vol]0.17 mg/dLNormal <0.31Marymount HospitalComment on above:Performed By: #### CDP #### [address] [address] [employer] Supervisor: Francisco J Fonseca MDProtein [Mass/Vol]6.4 g/dLNormal6.4-8.3MEastern Plumas District HospitalComment on above:Performed By: #### CDP #### [address] [address] [employer] Supervisor: Francisco J Fonseca MDNo Panel Informationon [id number] and review of laboratory resultsAbnormalCARILION GILES MEMORIAL HOSPITALInterpretation and review of laboratory resultsAbnormalCARILION GILES MEMORIAL HOSPITALEnteric tube needs to be advanced 10 cm. [facility] RIS CONSOLIDATEDEXAMINATION: ONE SUPINE XRAY VIEW(S) [...] tube needs to be advanced 10 cm. [employer] Work Phone: Interpretation and review of laboratory results AbnormalBON EUREKA COMMUNITY HEALTH SERVICES / AVERA HEALTHInterpretation and review of laboratory resultsAbnormalCARILION GILES MEMORIAL HOSPITALRadiology Study observation (narrative)[employer] Work Phone: absolute Eos #0.00[facility] TROYAbsolute Immature Granulocyte0.00[facility] HEALTHAbsolute Lymph #0.41LowBON SECOURS PIKE [facility]ITY [facility]ITAL HEALTHAbsolute [place] #0.62BON SECNeuroChaos Solutions [facility] HEALTHInterpretation and review of laboratory resultsAbnormSentara Leigh HospitalNRBC Automated 0.00.0 per 100 WBCBON Kettering Healthgs Cpzwomxj54.47HighBON SECQUENTIN [facility]. [facility] HEALTHInterpretation and review of laboratory resultsAbnormalBON [facility] HEALTHInterpretation and review of laboratory resultsAbnormalCARILION GILES MEMORIAL HOSPITALLactic Acid, Sepsis, Whole Blood1.7 mmol/L0.5 - 1.9 mmol/LBON SECQUENTIN N. BURD[facility]CH[facility]ARE CENTER HEALTHGFR >60>60 mL/minDICKENSON COMMUNITY HOSPITAL HEALTHGFR Non->60>60 mL/minBRISTOL COUNTY TUBERCULOSIS HOSPITALNeuroChaos Solutions [facility]ITALY HEALTHInterpretation and review of laboratory resultsAbnormalBON SECOURS [facility] SECBEAUREGARD MEMORIAL [facility] HEALTHBilirubin, Indirect0.28 mg/dL0.00 - 1.00 mg/dLBON EUREKA COMM[facility]ALTH SERVICES / [facility] HEALTHInterpretation and review of laboratory resultsAbnormalBON EUREKA [facility] / AVERA HEALTHNo Panel InformationOrdered By: Eulogio Winslow on [id number] [facility] Work Phone: POINT OF CARE GLUCOSEon [id number] [Mass/Vol] 408 mg/dLCritically hrrv98-705Axf The Jewish HospitalComment on above:Performed By: #### POCGLUC #### [facility] [address] [place] [address] Dr. Kylee BunchPROF CHEM 8 (BAS METB)on [id number] gap [Moles/Vol]16.4 mmol/LNormalThe The Jewish HospitalComment on above:Performed By: #### LIPA, MARGA, LIVER, BMP #### [facility] [address] [address] [address] Kylee BunchCalcium [Mass/Vol]8.8 mg/dLNormal8.5-10.1[facility] Comment on above:Performed By: #### LIPA, MARGA, LIVER, BMP #### [facility] [address] [address] [address] Kylee BunchChloride [Moles/Vol]96 mmol/LCritically qhh08-948Xfd The Jewish HospitalComment on above:Performed By: #### LIPA, MARGA, LIVER, BMP #### [facility] [address] [address] [address] Kylee BunchCO2 [Moles/Vol]25.1 mmol/VJjgbrx19.0-32.0[facility] Comment on above:Performed By: #### LIPA, MARGA, LIVER, BMP #### [facility] [address] [place] [address] Dr. Kylee BunchCreatinine [Mass/Vol]1.22 mg/dLNormal0.70-1.30The The Jewish HospitalComment on above:Performed By: #### LIPA, MARGA, LIVER, BMP #### [facility] [address] [address] [address] Pichardo ChangEGFR-AF JAMAICAN>60Normal>=60The The Jewish HospitalComment on above:Performed By: #### LIPA, MARGA, LIVER, BMP #### [facility] [address] [address] [address] Kylee SteinbergGFR-NON AF QNNDRZPN52 mL/min/1.65x7Fuyyhwslai low>=60The The Jewish HospitalComment on above:Performed By: #### LIPA, MARGA, LIVER, BMP #### [facility] [address] [address] [address] Kylee BunchGlucose [Mass/Vol]579 mg/dLCritically uvef59-341Rxf The Jewish HospitalComment on above:Result Comment: repeatedPerformed By: #### LIPA, MARGA, LIVER, BMP #### [facility] [address] [place] [address] Dr. Kylee BunchPotassium [Moles/Vol]4.5 mmol/LNormal3.5-5.1The [facility] Comment on above:Performed By: #### LIPA, MARGA, LIVER, BMP #### [facility] [address] [address] [address] Kylee BunchSodium [Moles/Vol]133 mmol/LCritically xlo017-091Uav The Jewish HospitalComment on above:Performed By: #### LIPA, MARGA, LIVER, BMP #### [facility] [address] [address] [address] Kylee BunchUrea nitrogen [Mass/Vol]19.0 mg/dLCritically high7.0-18.0The The Jewish HospitalComment on above:Performed By: #### LIPA, MARGA, LIVER, BMP #### [facility] [address] [place] [address] Dr. Kylee Saenz nitrogen/Creatinine [Mass ratio]15.6 mg/mgNormalThe The Jewish HospitalComment on above:Performed By: #### LIPA, MARGA, LIVER, BMP #### [facility] [address] [place] [address] Dr. Kylee Hernández 06-27-7592XNX Coag (PPP) [Relative time]1.2 {INR}NormalMercy Shriners Hospitals For Children Northern CaliforniaComment on above:Result Comment: Therapeutic Range: Moderate Anticoagulant Intensity: INR = 2.0-3.0 High Anticoagulant Intensity: INR = 2.5-3.5Performed By: #### CDP, MELVIN, BMPX, IPF #### [facility] [address] [place] [phone] [employer] Supervisor: SABINA Brandon Coag (PPP) [Time]12.5 sHigh9.1-12.3Mer[facility] Children Northern CaliforniaComment on above:Performed By: #### CDP, MELVIN, BMPX, IPF #### [facility] HospitalMaganda [employer] [address] [place] [phone] [employer] Supervisor: ANNALISE Brandon MICROSCOPIC ONLYon 61-98-4948DSTRVIPUCGXL SEENNormalNONE SEENDiley Ridge Medical CenterComment on above:Performed By: #### CMP, LIPID #### [facility] [address] [place] [address] Dr. Kylee Devlin identified Cx Nom (U)NOT INDICATEDNoMagruder Memorial HospitalComhills & d[facility] on above:Performed By: #### CMP, LIPID #### [facility] [address] [place] [address] Dr. Kylee Perry SEENNormalNONE SEENDiley Ridge Medical CenterComment on above:Performed By: #### CMP, LIPID #### [facility] [address] [address] [address] Kylee Montaño LM Nom (Urine sed)NONE SEENNormalNONE SEENDiley Ridge Medical CenterComhills & dales general hospital on above:Performed By: #### CMP, LIPID #### [facility] [address] [place] [address] Dr. Kylee Villarrealthelial cells LM Ql (Urine sed)RARENormalNONE SEEN /RAREDiley Ridge Medical CenterComment on above:Performed By: #### CMP, LIPID #### [facility] [address] [address] [address] Kylee BunchMUCOUSNONOdalys SEENNormalNONE SEENDiley Ridge Medical CenterComment on above:Performed By: #### CMP, LIPID #### [facility] [address] [address] [address] Kylee BunchLbfqpFEH7-5Mmqton0-7Ihg The Jewish HospitalComment on above:Performed By: #### CMP, LIPID #### [facility] [address] [address] [address] Kylee BunchWBCNONE SEENNormalNONE SEENThe The Jewish HospitalComment on above: Performed By: #### CMP, LIPID #### [facility] [address] [address] [address] Kylee Bunch Vital Signs Date TimeVital SignValuePerforming UtpudglreCdjiawpz29-65-8237 10:42-0400Body .34 cmRobert Vaschak DO Work Phone: [facility]10-29-2025 10:24-0400 Body mass index (BMI) [Ratio]18.9 kg/l2Gxuycl Vaschak DO Work Phone: [facility]10-29-2025 10:24-0400 Body fxxuaa26.68 kgRobert Vaschak DO Work Phone: [facility]10-29-2025 10:24-0400 Diastolic blood acgtnzon08 mm[Hg]Marie Vaschak DO Work Phone: [facility]10-29-2025 10:24-0400 Respiratory rate18 /minRobert Vaschak DO Work Phone: [facility]10-29-2025 10:24-0400 Systolic blood pyuvkney036 mm[Hg]Marie Vaschak DO Work Phone: [facility]10-22-2025 09:45-0400 Body mass index (BMI) [Ratio]20.09 kg/m2Amy Warchol HOSPITAL CHIEF EXECUTIVE OFFICER Work Phone: [facility] SystemAitqxsdrcy20-22-3233 09:45-0400Body ffgsjo20.5 kg Marga Robledo HOSPITAL CHIEF EXECUTIVE OFFICER Work Phone: [facility] SystemIgxedvwhag68-75-8083 09:45-0400Diastolic blood mm[Hg]Marga Robledo HOSPITAL CHIEF EXECUTIVE OFFICER Work Phone: [facility] SystemUqpbfxuozx87-40-3433 09:45-0400Heart rate61 /min Marga Davischol HOSPITAL CHIEF EXECUTIVE OFFICER Work Phone: [facility] SystemTbafxugyah38-08-5412 09:45-9262JfY7% (BldA) [Mass fraction]96 %Marga Robledo HOSPITAL CHIEF EXECUTIVE OFFICER Work Phone: [facility] SystemZoorgptfkn11-76-4687 09:45-0400Systolic blood yztbojkx349 mm[Hg]Marga Robledo HOSPITAL CHIEF EXECUTIVE OFFICER Work Phone: [facility] SystemUzlbayccxw78-91-7598 10:08-0400Body ejirrz965.8 cmRobert Vaschak DO Work Phone: [phone])707-[address] [place], [place] 6412609-16-2025 10:08-0400 Body mass index (BMI) [Ratio]19.5 kg/c0Txixas Vaschak DO Work Phone: [phone] [place], [place] 6412609-16-2025 10:08-0400 Body wltloj28.68 kgRobert Vaschak DO Work Phone: [address] [place], [place] 9306409-16-2025 10:08-0400 Diastolic blood exrclhpb22 mm[Hg]Marie Vaschak DO Work Phone: 1(827)450-[address] [place], [place] 6412609-16-2025 10:08-0400 Heart rate80 /minRobert Vaschak DO Work Phone: [facility]09-16-2025 10:08-0400 Respiratory rate18 /minRobert Vaschak DO Work Phone: [phone]09-16-2025 10:08-0400 SaO2% (BldA) [Mass fraction]98 %Marie Vaschak DO Work Phone: [phone]09-16-2025 10:08-0400 Systolic blood ztfcgkan644 mm[Hg]Marie Tejeda DO Work Phone: [facility]06-24-2025 11:38-0400 Body udmate898.8 cmRoberleeann Tejeda DO Work Phone: [address] [place], [place] [address]Gcfuoedmht89-37-2177 11:38-0400Body mass index (BMI) [Ratio]19.8 kg/p4Wrncozmarsha Tejeda DO Work Phone: [address] [place], [place] [address]Bpmybihedz43-90-0162 11:38-0400Body ycbuef95.6 kg Marie Tejeda DO Work Phone: [address] [place], [place] [address]Pfnngytfjs43-82-1383 11:38-0400Diastolic blood yatyevuu02 mm[Hg]Marie Tejeda DO Work Phone: 1(630)3-[address] [place], [place] [address]Wvieztsoxx74-36-6218 11:38-0400Heart rate64 /min Marie Tejeda DO Work Phone: [phone] SystemGkeawwgzvy85-09-9816 11:38-5092LsN4% (BldA) [Mass fraction]96 %Marie Tejeda DO Work Phone: [phone] SystemPrxwlzqvab45-85-4922 11:38-0400Systolic blood hqvnubqj442 mm[Hg]Marie Tejeda DO Work Phone: [phone] SystemLbxtkpqabj28-40-2328 12:09-0400Body jmsnoy586.8 cmAyana Zavala APRN.SENIOR ELECTRONICS TECHNICIAN Work Phone: [facility]04-17-2025 12:09-0400Body mass index (BMI) [Ratio]19.3 kg/u3MycjjqsAyana Zavala APRN.SENIOR ELECTRONICS TECHNICIAN Work Phone: [facility]04-17-2025 12:09-0400Body bgqsgu07 kg Ayana Zavala APRN.SENIOR ELECTRONICS TECHNICIAN Work Phone: [facility]04-17-2025 12:09-0400Diastolic blood dfkvgboh90 mm[Hg]Ayana Zavala DOCUMENTATION ENGINEER.SENIOR ELECTRONICS TECHNICIAN Work Phone: [phone]04-17-2025 12:09-0400Heart rate60 /min Ayana Souleymane DOCUMENTATION ENGINEER.SENIOR ELECTRONICS TECHNICIAN Work Phone: [phone]04-17-2025 12:09-0829CmT6% (BldA) [Mass fraction]99 %Ayana Zavala DOCUMENTATION ENGINEER.SENIOR ELECTRONICS TECHNICIAN Work Phone: [phone]04-17-2025 12:09-0400Systolic blood yjldlgcg236 mm[Hg]Ayana Souleymane DOCUMENTATION ENGINEER.SENIOR ELECTRONICS TECHNICIAN Work Phone: [phone]03-17-2025 14:27-0400Body mass index (BMI) [Ratio]19.96 kg/m5Acpjlqo Souleymane DOCUMENTATION ENGINEER.SENIOR ELECTRONICS TECHNICIAN Work Phone: [phone]03-17-2025 14:27-0400Body qfutzb24.1 kgAyana Zavala DOCUMENTATION ENGINEER.SENIOR ELECTRONICS TECHNICIAN Work Phone: [phone]03-17-2025 14:27-0400Diastolic blood mm[Hg]Ayana Souleymane DOCUMENTATION ENGINEER.SENIOR ELECTRONICS TECHNICIAN Work Phone: [phone]03-17-2025 14:27-0400Heart rate60 /min Ayana Souleymane DOCUMENTATION ENGINEER.SENIOR ELECTRONICS TECHNICIAN Work Phone: [phone]03-17-2025 14:27-9289LnK0% (BldA) [Mass fraction]100 %Ayana Zavala DOCUMENTATION ENGINEER.SENIOR ELECTRONICS TECHNICIAN Work Phone: [phone]03-17-2025 14:27-0400Systolic blood qmnafyhs559 mm[Hg]Ayana Zavala DOCUMENTATION ENGINEER.SENIOR ELECTRONICS TECHNICIAN Work Phone: [phone]02-20-2025 10:15-0500Body lutzed832.8 cmRobert Vaschak DO Work Phone: [facility]02-20-2025 10:15-0500 Body mass index (BMI) [Ratio]20 kg/e0Lesbes Vaschak DO Work Phone: [facility]02-20-2025 10:15-0500 Body bgvqeg81.5 kgRobmarsha Tejeda DO Work Phone: [facility]02-20-2025 10:15-0500 Diastolic blood mm[Hg]Marie Tejeda DO Work Phone: [facility]02-20-2025 10:15-0500 Heart rate60 /minRobmarsha Yunk DO Work Phone: [address] [place], [place] 9306402-20-2025 10:15-0500 Respiratory rate18 /minRobert Ileana DO Work Phone: [phone] [place], [place] 6412602-20-2025 10:15-0500 SaO2% (BldA) [Mass fraction]97 %Marie Tejeda DO Work Phone: [facility]02-20-2025 10:15-0500 Systolic blood bekpqjzv945 mm[Hg]Marie Tejeda DO Work Phone: [facility]02-19-2025 13:54-0500 Diastolic blood eylkepvx43 mm[Hg]Marie Tejeda DO Work Phone: [facility] SystemSmhfctbctm28-36-3580 13:54-0500Systolic blood vahehled534 mm[Hg]Marie Tejeda DO Work Phone: [facility] SystemGqpfmteark68-64-5934 13:50-0500Heart rate61 /min Marie Tejeda DO Work Phone: [facility] SystemRmkdmmtbmm98-87-6935 13:50-1599MrF6% (BldA) [Mass fraction]98 %Marie Tejeda DO Work Phone: [facility] SystemWslnjsvhum62-66-4235 10:13-0500Body mass index (BMI) [Ratio]21.24 kg/x7Lxruqge Chiki HOSPITAL CHIEF EXECUTIVE OFFICER Work Phone: [facility] SystemQqrksrrkbe01-08-2934 10:13-0500Body cwwpou15.13 kgCaitlin Chiki HOSPITAL CHIEF EXECUTIVE OFFICER Work Phone: [facility] SystemZfipbentkx62-21-2931 10:13-0500Diastolic blood uukhcbjv35 mm[Hg]Yomi Chong HOSPITAL CHIEF EXECUTIVE OFFICER Work Phone: [facility] SystemZmnlbfkbsd22-35-5583 10:13-0500Heart rate74 /min Yomi Chong HOSPITAL CHIEF EXECUTIVE OFFICER Work Phone: [facility] SystemPpikfnfckk61-64-5944 10:13-2442TgK2% (BldA) [Mass fraction]92 %Yomi Chong HOSPITAL CHIEF EXECUTIVE OFFICER Work Phone: [facility] SystemUrkrtfprzc22-34-0108 10:13-0500Systolic blood tnnhwrxo054 mm[Hg]Yomi Chong HOSPITAL CHIEF EXECUTIVE OFFICER Work Phone: [facility] SystemChsycrusas29-01-4350 13:57-0500Diastolic blood osldiunc40 mm[Hg]Marie Vaschak DO Work Phone: [phone])028-[address] [place], [place] 6412601-06-2025 13:57-0500 Systolic blood tzrinnhl874 mm[Hg]Marie Vaschak DO Work Phone: 1([phone])244-[address] [place], [place] 6412601-06-2025 13:17-0500 Body etcqyo969.8 cmRobert Vaschak DO Work Phone: 1(384)172-[address] [place], [place] 6412601-06-2025 12:03-0500 Body kdomnzfwbkt41.1 [degF]Marie Vaschak DO Work Phone: 7(005)699-[address] [place], [place] 6412601-06-2025 12:03-0500 Heart rate60 /minRobert Vaschak DO Work Phone: [phone])632-[address] [place], [place] 6412601-06-2025 12:03-0500 Respiratory rate12 /minRobert Vaschak DO Work Phone: 7(590)856-[address] [place], [place] 6412601-06-2025 12:03-0500 SaO2% (BldA) [Mass fraction]95 %Marie Vaschak DO Work Phone: 5(685)370-[address] [place], [place] 6412601-06-2025 03:36-0500 Body qigmqi585.8 cmRobert Vassunithak DO Work Phone: 7([phone])306-[address] [place], [place] 6412601-06-2025 03:36-0500 Body vmjbnmyripz36.6 [degF]Marie Vaschak DO Work Phone: 3([phone])[address]01-06-2025 03:36-0500 Body uacluc83.5 kgRobert Vaschak DO Work Phone: [phone])[address]01-06-2025 03:36-0500 Diastolic blood nssbvbou48 mm[Hg]Marie Vassunithak DO Work Phone: 6([phone])[address]01-06-2025 03:36-0500 Heart rate61 /minRobert Vaschak DO Work Phone: 2([phone])[address]01-06-2025 03:36-0500 Respiratory rate15 /minRobert Vaschak DO Work Phone: 3(307)0-[address] [place], [place] 6412601-06-2025 03:36-0500 SaO2% (BldA) [Mass fraction]91 %Marie Tejeda DO Work Phone: [phone])[address] [place], [place] 6412601-06-2025 03:36-0500 Systolic blood whurotfm623 mm[Hg]Marie Yunk DO Work Phone: 1(596)[address] [place], [place] 6412612-26-2024 11:15-0500 Body mass index (BMI) [Ratio]21.61 kg/c5NbmipujAyana Zavala APRN.SENIOR ELECTRONICS TECHNICIAN Work Phone: [facility]12-26-2024 11:15-0500Body qohwet66.3 kgAyana Zavala APRN.SENIOR ELECTRONICS TECHNICIAN Work Phone: [phone]12-26-2024 11:15-0500Diastolic blood oxrnrekb82 mm[Hg]Ayana Zavala APRN.SENIOR ELECTRONICS TECHNICIAN Work Phone: [phone]12-26-2024 11:15-0500Heart rate60 /min Ayana Zavala APRN.SENIOR ELECTRONICS TECHNICIAN Work Phone: [facility]12-26-2024 11:15-0500Systolic blood emunvoob156 mm[Hg]Ayana Zavala SENIOR ELECTRONICS TECHNICIAN Work Phone: [facility]12-23-2024 09:23-0500Body quxnag421.8 cmAilya Oh MD Work Phone: [facility] SystemXuoifexzsn98-02-0414 09:23-0500Body mass index (BMI) [Ratio]20.37 kg/q5ZkvmwwBeto Oh MD Work Phone: [facility] SystemHfnifafnaz09-77-7482 09:23-0500Body iotpkf98.41 kgBeto Oh MD Work Phone: [facility] SystemOqizispgtf25-19-0051 12:00-0500Body temperature 97.6 [degF]Marie Xavichak DO Work Phone: [facility]12-11-2024 12:00-0500 Diastolic blood mm[Hg]Marie Vaschak DO Work Phone: 1(798)299-[address] [place], [place] 6412612-11-2024 12:00-0500 Heart rate68 /minRobert Vaschak DO Work Phone: [phone]12-11-2024 12:00-0500 Respiratory rate16 /minRobert Vaschak DO Work Phone: [facility]12-11-2024 12:00-0500 SaO2% (BldA) [Mass fraction]98 %Marie Vaschak DO Work Phone: [phone]12-11-2024 12:00-0500 Systolic blood rbnnckco021 mm[Hg]Marie Vaschak DO Work Phone: [phone]12-11-2024 06:00-0500 Body knhcdu13.6 kgRobert Vaschak DO Work Phone: [phone]12-10-2024 12:12-0500 Body .34 cmRoberleeann Vassunithak DO Work Phone: 1(360)[address]12-09-2024 14:59-0500 Body zumjod315.8 cmRobert Vaschak DO Work Phone: 1(406)[address]12-09-2024 14:59-0500Body mass index (BMI) [Ratio]20.37 kg/c4Nhcfym Vaschak DO Work Phone: 1(054)[address] [place], [place] 6601512-09-2024 14:59-0500Body zkdade60.41 kgRobert Vassunithak DO Work Phone: 1([phone])[address] [place], [place] 6601512-09-2024 14:59-0500Diastolic blood fjzxfmvu47 mm[Hg]Marie Tejeda DO Work Phone: 1(225)[address] [place], [place] 6601512-09-2024 14:59-0500Heart rate70 /min Marie Tejeda DO Work Phone: 1(919)[facility] [place], [place] [address]Yylohmpgvy34-99-1858 14:59-0500Systolic blood euwmngyo484 mm[Hg]Marie Tejeda DO Work Phone: 1(094)[address] [place], [place] 6601512-08-2024 15:42-0500Body temperature 97.6 [degF]Marie Tejeda DO Work Phone: 4([phone])[address]12-08-2024 15:42-0500 Diastolic blood mm[Hg]Marie Tejead DO Work Phone: 6(465)4-[address] [place], [place] 6412612-08-2024 15:42-0500 Heart rate60 /minRobert Vaschak DO Work Phone: 8(277)001-[address] [place], [place] 6412612-08-2024 15:42-0500 Respiratory rate19 /minRobert Vaschak DO Work Phone: 6(226)5-[address] [place], [place] 6412612-08-2024 15:42-0500 SaO2% (BldA) [Mass fraction]96 %Marie Tejeda DO Work Phone: 7(979)338-[address] [place], [place] 6412612-08-2024 15:42-0500 Systolic blood fmehfoyg395 mm[Hg]Marie Tejeda DO Work Phone: 1(402)950-[address] [place], [place] 6412612-08-2024 05:28-0500 Body kiapbe10.5 kgRobert Vassunithak DO Work Phone: 3([phone])[address]12-06-2024 19:55-0500 Body khfnal007.8 cmRobert Jamak DO Work Phone: 1(585)[address]11-19-2024 14:20-0500 Body pnlofm234.8 cmRobert Jamak DO Work Phone: [phone])[address] [place] [address]-19-2024 14:20-0500Body mass index (BMI) [Ratio]21.09 kg/y3Fwjxaxmarsha Yunk DO Work Phone: [address] [place], [place] [address]Xazrbykugn91-38-6223 14:20-0500Body ferxal24.68 kgRobmarsha Tejeda DO Work Phone: [address] [place], [place] [address]Pnxtqjblha25-81-8235 14:20-0500Diastolic blood pshvaffc11 mm[Hg]Marie Tejeda DO Work Phone: [address] [address]Pjolagmhix92-43-1773 14:20-0500Heart rate61 /min Marie Tejeda DO Work Phone: [address] [address]Barujjowrq95-86-1866 14:20-5864QeI2% (BldA) [Mass fraction]97 %Marie Tejeda DO Work Phone: 0([phone]-[address] [address]Kgnbmwaczj68-41-2826 14:20-0500Systolic blood dptkqngo991 mm[Hg]Marie Tejeda DO Work Phone: [address] [address]Chefiubtvn87-18-2808 08:00-0500Body vfechysyfhm38 [degF]Marie Tejeda DO Work Phone: [facility]11-14-2024 08:00-0500 Diastolic blood smdxixxx35 mm[Hg]Marie Tejeda DO Work Phone: 6(388)551-[address] [place], [place] 6412611-14-2024 08:00-0500 Heart rate60 /minRobert Vaschak DO Work Phone: 2(542)447-[address] [place], [place] 6412611-14-2024 08:00-0500 Respiratory rate16 /minRobert Vaschak DO Work Phone: 2(486)[address]11-14-2024 08:00-0500 SaO2% (BldA) [Mass fraction]97 %Marie Vaschak DO Work Phone: 1(938)[address]11-14-2024 08:00-0500 Systolic blood femwqohi572 mm[Hg]Marie Vaschak DO Work Phone: 2(097)[address]11-14-2024 06:00-0500 Body saeqfw98 kgRobert Vaschak DO Work Phone: 4(927)[address]11-13-2024 20:12-0500 Body hpksah891.8 cmRobert Vaschak DO Work Phone: 1(928)[address]11-13-2024 19:25-0500 Inhaled oxygen flow rate10 L/minRobert Vaschak DO Work Phone: 3(697)[address]10-30-2024 11:10-0400 Diastolic blood mm[Hg]DO Marie Vaschak Work Phone: 0(103)[address]10-30-2024 11:10-0400 Heart rate61 /minDO Marie Vaschak Work Phone: 3(017)5-[address] [place], [place] 6412610-30-2024 11:10-0400 Systolic blood mm[Hg]DO Marie Vaschak Work Phone: 7(051)1-[address] [place], [place] 6412610-30-2024 11:00-0400 Body jbazsi829.8 cmDO Marie Vaschak Work Phone: 7(371)633-[address] [place], [place] 6412610-30-2024 11:00-0400 Body mass index (BMI) [Ratio]21.9 kg/m2DO Marie Vaschak Work Phone: 1(722)[address]10-30-2024 11:00-0400 Body .39 kgDO Marie Tejeda Work Phone: 1(056)[address]10-30-2024 11:00-0400 Respiratory rate18 /minDO Marie Jamak Work Phone: 8(039)[address]10-30-2024 11:00-0400 SaO2% (BldA) [Mass fraction]98 %DO Marie Tejeda Work Phone: 1(356)[address] [place], [place] 2524510-16-2024 14:14-0400 Diastolic blood xdsyasqx40 mm[Hg]DO Marie Ileana Work Phone: 1(144)[address]10-16-2024 14:14-0400 Systolic blood fsikodbc944 mm[Hg]DO Marie Tejeda Work Phone: 1(720)[address] [place], [place] 2524510-16-2024 13:23-0400 Body rpqhuu077.8 cmDO Marie Tejeda Work Phone: 1(551)[address] [place], [place] 2524510-16-2024 13:23-0400 Body mass index (BMI) [Ratio]22.2 kg/m2DO Marie Tejeda Work Phone: 5(315)[address] [place], [place] 2524510-16-2024 13:23-0400 Body .3 kgDO Marie Tejeda Work Phone: 8(934)[address] [place], [place] 2524510-16-2024 13:23-0400 Heart rate56 /minDO Marie Tejeda Work Phone: 4(340)[address]10-16-2024 13:23-0400 Respiratory rate18 /minDO Marie Yunk Work Phone: 1(279)[address]10-16-2024 13:23-0400 SaO2% (BldA) [Mass fraction]94 %DO Marie Ileana Work Phone: 1(218)[address] [place], [place] 2524510-16-2024 10:24-0400 Diastolic blood xncduqwa09 mm[Hg]DO Marie Tejeda Work Phone: [facility]10-16-2024 10:24-0400 Heart rate55 /Eleazar Tejeda Work Phone: [facility]10-16-2024 10:24-0400 Respiratory rate12 /Eleazar Tejeda Work Phone: [facility]10-16-2024 10:24-0400 SaO2% (BldA) [Mass fraction]97 %DO Marie Tejeda Work Phone: [facility]10-16-2024 10:24-0400 Systolic blood nrbcfyoj990 mm[Hg]DO Marie Tejeda Work Phone: [facility]10-14-2024 15:59-0400 Diastolic blood mm[Hg]Anatoly Cally HOSPITAL CHIEF EXECUTIVE OFFICER Work Phone: [facility] SystemUhegyiczgx88-50-6058 15:59-0400Heart rate50 /min Yuerong Cally HOSPITAL CHIEF EXECUTIVE OFFICER Work Phone: [facility] SystemJhlwkzhctc70-43-9490 15:59-4790OwM7% (BldA) [Mass fraction]90 %Yuerong Cally HOSPITAL CHIEF EXECUTIVE OFFICER Work Phone: [facility] SystemPkedeipjwk77-66-2837 15:59-0400Systolic blood hwexohdq884 mm[Hg]Yuerong Cally HOSPITAL CHIEF EXECUTIVE OFFICER Work Phone: [facility] SystemSwqiyhqkuf71-10-3936 10:52-0400Diastolic blood hguypncj48 mm[Hg]Marie Jamak DO Work Phone: [facility] SystemFjemmgivqa76-49-2677 10:52-0400Heart rate52 /min Marie Vaschak DO Work Phone: [place] [address]Hiqscylner06-80-8187 10:52-6234YuQ9% (BldA) [Mass fraction]94 %Marie Jamak DO Work Phone: [place] [address]Wefcnwwtur67-73-1443 10:52-0400Systolic blood aecsjksx87 mm[Hg]Marie Jamak DO Work Phone: 7(795)570-54[facility] SystemDdcbmvabvo42-87-6771 10:50-0400Body tnddso893.8 cmRobert Jamak DO Work Phone: [facility] SystemKrfkabrblu45-65-2250 10:50-0400Body mass index (BMI) [Ratio]20.81 kg/f4Gawblr Vaschak DO Work Phone: [facility] SystemRfuqyvqvyt73-85-9473 10:50-0400Body jwwoqh35.77 kgRobert Vaschak DO Work Phone: 8(531)[address]09-16-2024 11:09-0400Body .8 cmDO Marie Yunk Work Phone: 9(030)[address]09-16-2024 11:09-0400 Body mass index (BMI) [Ratio]20.9 kg/m2DO Marie Yunk Work Phone: 1(842)[address]09-16-2024 11:09-0400 Body uwllks84.22 kgDO Marie Jamak Work Phone: 9(366)[address]09-16-2024 11:09-0400 Diastolic blood jxmzegyh31 mm[Hg]DO Marie Jamak Work Phone: 1(153)[address]09-16-2024 11:09-0400 Heart rate61 /minDO Marie Yunk Work Phone: 7(979)[address]09-16-2024 11:09-0400 Respiratory rate18 /minDO Marie Yunk Work Phone: 1(492)118-[address] [place], [place] 6412609-16-2024 11:09-0400 SaO2% (BldA) [Mass fraction]97 %DO Marie Xavichak Work Phone: 8(484)7-[address] [place], [place] 6412609-16-2024 11:09-0400 Systolic blood gbdjtawd237 mm[Hg]DO Marie Xavichak Work Phone: 3(182)849-[address] [place], [place] 6412609-04-2024 11:08-0400 Diastolic blood llayshuz27 mm[Hg]DO Marie Jamak Work Phone: 9(040)020-[address] [place], [place] 6412609-04-2024 11:08-0400 Heart rate59 /Eleazar Yunk Work Phone: 4(410)000-[address] [place], [place] 6412609-04-2024 11:08-0400 Systolic blood xkohlucw848 mm[Hg]DO Marie Xavichak Work Phone: 1(906)137-[address] [place], [place] 6412609-04-2024 11:07-0400 Respiratory rate18 /TitaO Marie Yunk Work Phone: 8(380)166[address]09-04-2024 11:06-0400 Body .8 cmDO Marie Yunk Work Phone: 3(068)[address]09-04-2024 11:06-0400 Body mass index (BMI) [Ratio]21.5 kg/m2DO Marie Yunk Work Phone: 1(305)9[address]09-04-2024 11:06-0400 Body .03 kgDO Marie Tejeda Work Phone: 3(101)[address]09-04-2024 11:06-0400 SaO2% (BldA) [Mass fraction]95 %DO Marie Jamak Work Phone: 5(108)812-[address] [place], [place] 6412608-30-2024 11:01-0400 Diastolic blood sbagmwxh97 mm[Hg]DO Marie Xavichak Work Phone: [address] [place], [place] 9306408-30-2024 11:01-0400 Heart rate45 /TitaO Marie Yunk Work Phone: 7(588)683-[address] [place], [place] 6412608-30-2024 11:01-0400 Systolic blood daayvsnb601 mm[Hg]DO Marie Vaschak Work Phone: 8(868)858-[address] [place], [place] 6412608-28-2024 11:24-0400 Diastolic blood drdhluef77 mm[Hg]DO Marie Ileana Work Phone: [facility]08-28-2024 11:24-0400 Heart rate54 /Eleazar Tejeda Work Phone: [facility]08-28-2024 11:24-0400 Systolic blood sevpwtbh447 mm[Hg]DO Marie Tejeda Work Phone: 1(601)963-[address] [place], [place] 6412608-21-2024 12:36-0400 Respiratory rate18 /minDO Marie Tejeda Work Phone: 1(509)[address]08-21-2024 12:36-0400 SaO2% (BldA) [Mass fraction]97 %DO Marie Tejeda Work Phone: 1(781)[address]08-20-2024 13:29-0400 Diastolic blood fygivbdk74 mm[Hg]DO Marie Tejeda Work Phone: 8(826)[address]08-20-2024 13:29-0400 Heart rate52 /Eleazar Tejeda Work Phone: 1(568)606-[address] [place], [place] 6412608-20-2024 13:29-0400 Systolic blood cgtumhtc65 mm[Hg]DO Marie Tejeda Work Phone: 7(988)044[address]08-20-2024 13:25-0400 Respiratory rate18 /Eleazar Tejeda Work Phone: 4(567)520-[address] [place], [place] 6412608-20-2024 13:24-0400 Body avqnfv313.8 cmDO Marie Tejeda Work Phone: 6(300)476-[address] [place], [place] 6412608-20-2024 13:24-0400 Body mass index (BMI) [Ratio]21.4 kg/m2DO Marie Jamak Work Phone: 3(505)640-[address] [place], [place] 6412608-20-2024 13:24-0400 Body .58 kgDO Marie Yunk Work Phone: 9(657)622-[address] [place], [place] 6412608-20-2024 13:24-0400 SaO2% (BldA) [Mass fraction]99 %DO Marie Xavichak Work Phone: 1(643)138-[address] [place], [place] 6412608-06-2024 10:12-0400 Diastolic blood qxxfjlyj85 mm[Hg]DO Marie Jamak Work Phone: 1(742)247-[address] [place], [place] 6412608-06-2024 10:12-0400 Heart rate48 /minDO Marie Yunk Work Phone: 1(876)[address]08-06-2024 10:12-0400 Systolic blood mm[Hg]DO Marie Jamak Work Phone: 1(054)[address]08-06-2024 10:11-0400 Body ccrnvi728.8 cmDO Marie Tejeda Work Phone: 1(741)[address]08-06-2024 10:11-0400 Body mass index (BMI) [Ratio]21.5 kg/m2DO Marie Tejeda Work Phone: 1(305)[address]08-06-2024 10:11-0400 Body .03 kgDO Marie Tejeda Work Phone: 1(508)[address]08-06-2024 10:11-0400 Respiratory rate18 /Eleazar Tejeda Work Phone: 1(454)73601 [address]08-06-2024 10:11-0400 SaO2% (BldA) [Mass fraction]97 %DO Marie Ileana Work Phone: 1(016)873-[address] [place], [place] 6412607-30-2024 11:29-0400 Diastolic blood sxwamick64 mm[Hg]DO Marie Ileana Work Phone: 9(246)987[address]07-30-2024 11:29-0400 Heart rate45 /TitaO Marie Jamak Work Phone: 2(578)023-[address] [place], [place] 6412607-30-2024 11:29-0400 Respiratory rate16 /minDO Marie Jamak Work Phone: 1(144)925-[address] [place], [place] 6412607-30-2024 11:29-0400 SaO2% (BldA) [Mass fraction]98 %DO Marie Jamak Work Phone: 2(883)078-[address] [place], [place] 6412607-30-2024 11:29-0400 Systolic blood pcrpnagg466 mm[Hg]DO Marie Xavichak Work Phone: 2(027)208-[address] [place], [place] 6412607-30-2024 07:59-0400 Body snnamsvrcwg06.8 [degF]DO Marie Jamak Work Phone: 1(009)[address]07-30-2024 05:37-0400 Body gmeiml13.9 kgDO Marie Tejeda Work Phone: 0(689)[address]07-28-2024 15:56-0400 Body iggspt329.8 cmDO Marie Tejeda Work Phone: 0(286)188-[address] [place], [place] 6412607-28-2024 00:57-0400 Diastolic blood aqeqijns95 mm[Hg]DO Marie Ileana Work Phone: 1(373)981-[address] [place], [place] 6412607-28-2024 00:57-0400 Heart rate58 /minDO Marie Tejeda Work Phone: 0(358)763-[address] [place], [place] 6412607-28-2024 00:57-0400 Respiratory rate18 /minDO Marie Tejeda Work Phone: [address] [place], [place] 9306407-28-2024 00:57-0400 SaO2% (BldA) [Mass fraction]100 %DO Marie Ileana Work Phone: [address] [place], [place] 9306407-28-2024 00:57-0400 Systolic blood wzlagfgv880 mm[Hg]DO Marie Jamak Work Phone: 6(524)019-[address] [place], [place] 6412607-27-2024 19:13-0400 Body vsogbs618.07 cmDO Marie Jamak Work Phone: 5(008)118-[address] [place], [place] 6412607-27-2024 19:13-0400 Body rcqxtnbeptt31.6 [degF]DO Marie Xavichak Work Phone: 6(770)398-[address] [place], [place] 6412607-27-2024 19:13-0400 Body oggztj11.5 kgDO Marie Tejeda Work Phone: 7(925)[address]05-02-2024 13:50-0400 Diastolic blood biaklnby67 mm[Hg]DO Marie Tejeda Work Phone: 8(913)[address]05-02-2024 13:50-0400 Heart rate56 /Eleazar Tejeda Work Phone: 5(373)[address]05-02-2024 13:50-0400 Respiratory rate16 /TitaO Marie Tejeda Work Phone: 2(241)[address]05-02-2024 13:50-0400 SaO2% (BldA) [Mass fraction]97 %DO Marie Tejeda Work Phone: 9(280)[address]05-02-2024 13:50-0400 Systolic blood pywnnepr106 mm[Hg]DO Marie Tejeda Work Phone: 1(925)[address]05-02-2024 12:20-0400 Body fufdjw860.8 cmDO Marie Tejeda Work Phone: 2(619)[address]05-02-2024 12:20-0400 Body sqjozw41.77 kgDO Marie Tejeda Work Phone: 4(442)2-[address] [place], [place] 6412604-18-2024 14:51-0400 Body .8 cmDO Marie Tejeda Work Phone: 4(939)413-[address] [place], [place] 6412604-18-2024 14:51-0400 Body mass index (BMI) [Ratio]20.9 kg/m2DO Marie Tejeda Work Phone: 4(885)560-[address] [place], [place] 6412604-18-2024 14:51-0400 Body mfoxen15.22 kgDO Marie YunMyAppConverter Work Phone: 5(627)268-[address] [place], [place] 6412604-18-2024 14:51-0400 Diastolic blood gtphzogi39 mm[Hg]DO Marie Tejeda Work Phone: 1(206)57501 [address]04-18-2024 14:51-0400 Heart rate64 /Eleazar Tejeda Work Phone: 1(762)91901 [address]04-18-2024 14:51-0400 Respiratory rate18 /TitaO Marie Tejeda Work Phone: 1(911)[address]04-18-2024 14:51-0400 SaO2% (BldA) [Mass fraction]96 %DO Marie Tejeda Work Phone: 1(303)[address]04-18-2024 14:51-0400 Systolic blood ikutotzl566 mm[Hg]DO Marie Ileana Work Phone: 1(033)[address]04-11-2024 08:36-0400 Body eawtuu025.8 cmDO Marie YunMyAppConverter Work Phone: 1(798)[address]04-11-2024 08:36-0400 Body mass index (BMI) [Ratio]21.2 kg/m2DO Marie Care at HandsunithaMyAppConverter Work Phone: 3(681)[address]04-11-2024 08:36-0400 Body xszcem53.13 kgDO Marie YunMyAppConverter Work Phone: 1(785)[address]03-19-2024 10:26-0400 Body devbwr068.8 cmDO Marie YunMyAppConverter Work Phone: 0(727)[address]03-19-2024 10:26-0400 Body mass index (BMI) [Ratio]21.2 kg/m2DO Marie [facility]aMy[facility] Work Phone: 0(108)848-[address] [place], [place] 6412603-19-2024 10:26-0400 Body qotsaf14.13 kgDO Marie JamaMyAppConverter Work Phone: 9(050)692-[address] [place], [place] 6412603-18-2024 15:40-0400 Diastolic blood ckeimmso19 mm[Hg]DO Marie Xavichak Work Phone: [facility]03-18-2024 15:40-0400 Heart rate72 /Eleazar Tejeda Work Phone: [facility]03-18-2024 15:40-0400 Systolic blood fmzrxgyq837 mm[Hg]DO Marie Tejeda Work Phone: 3(612)[address]02-26-2024 12:00-0500 Body vfuvmcetkgr77.4 [degF]DO Marie Tejeda Work Phone: [address] [place], [place] 9306402-26-2024 12:00-0500 Diastolic blood puyrjjit10 mm[Hg]DO Marie Tejeda Work Phone: 1(579)209-[address] [place], [place] 6412602-26-2024 12:00-0500 Heart rate67 /Eleazar Tejeda Work Phone: [address] [place], [place] 9306402-26-2024 12:00-0500 Respiratory rate16 /Eleazar Tejeda Work Phone: [address] [place], [place] 9306402-26-2024 12:00-0500 SaO2% (BldA) [Mass fraction]97 %DO Marie Tejeda Work Phone: 9(908)723-31[facility]02-26-2024 12:00-0500 Systolic blood ntaefmdo223 mm[Hg]DO Marie Tejeda Work Phone: [facility]02-26-2024 06:00-0500 Body uyqspk21.2 kgDO Marie Tejeda Work Phone: [facility]02-21-2024 15:42-0500 Body ykjkge266.8 cmDO Marie Tejeda Work Phone: [facility]02-05-2024 14:07-0500 Body ipxgll308.8 cmSammy Berman APRN-KALANI Work Phone: [facility]02-05-2024 14:07-0500 Body mass index (BMI) [Ratio]20.09 kg/d1HrilkSammy Berman DOCUMENTATION ENGINEER-SENIOR ELECTRONICS TECHNICIAN Work Phone: [facility]02-05-2024 14:07-0500 Body vawzwu63.5 kgSammy Berman DOCUMENTATION ENGINEER-SENIOR ELECTRONICS TECHNICIAN Work Phone: [facility]02-05-2024 14:07-0500 Diastolic blood jtyquzex00 mm[Hg]Sammy Berman DOCUMENTATION ENGINEER-SENIOR ELECTRONICS TECHNICIAN Work Phone: [facility]02-05-2024 14:07-0500 Heart rate72 /Markus Berman DOCUMENTATION ENGINEER-SENIOR ELECTRONICS TECHNICIAN Work Phone: [facility]02-05-2024 14:07-0500 Systolic blood qffniiba663 mm[Hg]Sammy Berman DOCUMENTATION ENGINEER-SENIOR ELECTRONICS TECHNICIAN Work Phone: [facility]01-05-2024 22:45-0500 Diastolic blood oagehgqp96 mm[Hg]DO Marie Tejeda Work Phone: [facility]01-05-2024 22:45-0500 Heart rate69 /Eleazar Tejeda Work Phone: [address] [place], [place] 9306401-05-2024 22:45-0500 Respiratory rate16 /Eleazar Yunk Work Phone: [address] [place], [place] 9306401-05-2024 22:45-0500 SaO2% (BldA) [Mass fraction]98 %DO Marie Tejeda Work Phone: [facility]01-05-2024 22:45-0500 Systolic blood zoymagpr830 mm[Hg]DO Marie Hurleychak Work Phone: [facility]01-05-2024 13:24-0500 Body .8 cmDO Marie Yunk Work Phone: [facility]01-05-2024 13:24-0500 Body efuykgvqsvl71.7 [degF]DO Marie Yunk Work Phone: [facility]01-05-2024 13:24-0500 Body citgou48.95 kgDO Marie Tejeda Work Phone: [facility]11-14-2023 13:41-0500 Diastolic blood vdijuvaf82 mm[Hg]Govind Davis DO Work Phone: [facility]11-14-2023 13:41-0500 Systolic blood nfqoqqfl574 mm[Hg]Govind Davis DO Work Phone: [facility]11-14-2023 13:37-0500 Body wkpsyg483.8 cmWieron Davis DO Work Phone: [address] [place], [place] 5256311-14-2023 13:37-0500 Body mass index (BMI) [Ratio]19.51 kg/a9PewmjxgGovind Davis DO Work Phone: [facility]11-14-2023 13:37-0500 Body vopccw23.69 kgWieron Davis DO Work Phone: [facility]11-14-2023 13:37-0500 Heart rate70 /minGovind Davis DO Work Phone: [facility]10-28-2023 10:33-0400 Diastolic blood uebhevnl39 mm[Hg]DO Marie Tejeda Work Phone: [facility]10-28-2023 10:33-0400 Heart rate97 /Eleazar Tejeda Work Phone: [facility]10-28-2023 10:33-0400 Respiratory rate18 /minDJuan Ramon Yunk Work Phone: [facility]10-28-2023 10:33-0400 Systolic blood awljoily796 mm[Hg]DO Marie Jamak Work Phone: [facility]10-28-2023 05:00-0400 Body sujkwctmjvr15.8 [degF]DO Marie Xavichak Work Phone: 1(419)[address]10-28-2023 05:00-0400 SaO2% (BldA) [Mass fraction]97 %DO Marie Tejeda Work Phone: 1(942)[address]10-24-2023 11:00-0400 Body .8 cmDO Marie Tejeda Work Phone: 7(271)[address] [place], [place] 2524510-23-2023 16:44-0400 Body wlasrf73.4 kgDO Marie Tejeda Work Phone: 1(997)[address] [place], [place] 2524510-23-2023 11:48-0400 Body uejnmcldkkv68.1 [degF]DO Marie Tejeda Work Phone: 5(626)[address] [place], [place] 2524510-23-2023 11:48-0400 Diastolic blood ngnrhpao08 mm[Hg]DO Marie Tejeda Work Phone: 1(071)[address] [place], [place] 2524510-23-2023 11:48-0400 Heart rate55 /Eleazar Tejeda Work Phone: 1(459)[address] [place], [place] 2524510-23-2023 11:48-0400 Respiratory rate18 /Eleazar Tejeda Work Phone: 5(594)[address]10-23-2023 11:48-0400 SaO2% (BldA) [Mass fraction]99 %DO Marie Tejeda Work Phone: 8(877)[address]10-23-2023 11:48-0400 Systolic blood iuxzmtrv274 mm[Hg]DO Marie Tejeda Work Phone: 1(803)[address]10-23-2023 05:40-0400 Body .6 kgDO Marie Tejeda Work Phone: 4(398)[address]10-22-2023 00:00-0400 Inhaled oxygen flow rate6 L/Eleazar Tejeda Work Phone: 1(809)[address]10-20-2023 15:31-0400 Body mass index (BMI) [Ratio]18.8 kg/m2DO Marie Tejeda Work Phone: 1(224)[address]10-20-2023 15:25-0400 Body .34 cmDO Marie Tejeda Work Phone: 3(959)[address]10-18-2023 16:32-0400 Heart rate63 /Eleazar Tejeda Work Phone: 1(633)[address]10-18-2023 16:24-0400 Diastolic blood iysgeess47 mm[Hg]DO Marie Tejeda Work Phone: 1(829)[address]10-18-2023 16:24-0400 Respiratory rate18 /Eleazar Tejeda Work Phone: 1(836)[address]10-18-2023 16:24-0400 SaO2% (BldA) [Mass fraction]98 %DO Marie Tejeda Work Phone: 1(729)[address] [place], [place] 2524510-18-2023 16:24-0400 Systolic blood qoevkyer236 mm[Hg]DO Marie Tejeda Work Phone: 1(054)[address] [place], [place] 2524510-18-2023 13:34-0400 Body pzpxwjsncyr50.2 [degF]DO Marie Tejeda Work Phone: 1(948)[address]10-18-2023 12:19-0400 Body gbgatp432.34 cmDO Marie Tejeda Work Phone: 1(069)[address]10-18-2023 12:19-0400 Body bdwotj00.41 kgDO Marie Tejeda Work Phone: 1(090)[address]06-29-2022 09:35-0400 Diastolic blood xidpddih73 mm[Hg]Gray Ross MD Work Phone: bon [facility]06-29-2022 09:35-0400Systolic blood wzgsqvan424 mm[Hg]Gray Ross MD Work Phone: bon [facility]06-29-2022 07:46-0400Body .81 [degF]Gray Ross MD Work Phone: bon [facility]06-29-2022 07:46-0400Heart rate64 /minGray Ross MD Work Phone: bON [facility]06-29-2022 07:46-0400 Respiratory rate15 /minGray Ross MD Work Phone: bon [facility]06-29-2022 07:46-3430FkE4% (BldA) [Mass fraction]98 %Gray Ross MD Work Phone: bON [facility]06-25-2022 04:00-0400Body cksoai237.8 cmGray Ross MD Work Phone: bON [facility]06-25-2022 04:00-0400Body mass index (BMI) [Ratio]20.81 kg/i0AeoxsveGray Ross MD Work Phone: bon [facility]06-25-2022 04:00-0400Body rykhjl00.8 kgGray Ross MD Work Phone: bon [facility] Encounters Encounter DateEncounter TypeCare ProviderFacilityStart: 05-21-2025 End: 92-28-3635tawxpbqcbfEfwhfwg P COOKFacility:[place]Start: 05-21-2025 End: 20-35-0403Utfacbe encounter procedureTristan MELCHOR [facility] start: 05-17-2025 End: 57-92-4804Gpvcsjrjp department patient visitAstrit H NicolasariFacility:[facility] [place] Start: 05-10-2025 End: 01-03-6931Mobzqgtnw Result EncounterGeneric External Data ProviderNOMS External Department UnsolicitedStart: 05-10-2025 End: 56-52-9251Chlhtqage Result EncounterGeneric External Data ProviderNOMS External Department UnsolicitedStart: 05-09-2025 End: 98-08-8294jquqceyxgzQmyxzb Ileana DO Work Phone: 8(326)189-4605940-3542-Vvjvmdjpy Health CardiologyStart: 05-09-2025 End: 65-32-1960Fghfgbt encounter procedureAnat Perez MD-[facility] Work Phone: Start: 05-08-2025 End: 63-08-4613Wbccwqzfq Result EncounterGeneric External Data ProviderNOMS External Department UnsolicitedStart: 05-08-2025 End: 30-49-5897Jayoazvaj Result EncounterGeneric External Data ProviderNOMS External Department UnsolicitedStart: 05-03-2025 End: 99-35-0630zfeyzmgqoaJQIOSOQ MARSHALLFacility:[facility] Start: 05-02-2025 End: 57-86-6306gzczammjflNFZ WARCHOLNot AvailableStart: 05-02-2025 End: 57-06-8980Nwfgey outpatient visit 40 minutesMarga Robledo NP Work Phone: [facility] Internal MedicineComment on above:Need for [...] (implantable cardioverter-defibrillator) in place; PacemakerStart: 04-25-2025 End: 55-78-2637wcmvdwukdmGjaavix P COOKFacility:EU kStart: 04-25-2025 End: 09-11-7856Pgceoup encounter procedureTristan MELCHOR [facility] Start: 04-18-2025 End: 13-25-1211szfrerhtfzAtgwdjo P COOKFacility:EU Johnnietart: 04-18-2025 End: 21-28-6273Kgwytxe encounter procedureGreggiuliano MELCHOR [facility] Start: 02-29-8224ddwsnfpkbzWjqlyh HajdariFacility:EU [place]Start: 04-09-2025 End: 66-26-1391Xwofisfeq Result EncounterGeneric External Data ProviderNOMS External Department UnsolicitedStart: 04-09-2025 End: 59-27-7272Sohqyhcsi Result EncounterGeneric External Data ProviderNOMS External Department UnsolicitedStart: 04-09-2025 End: 96-44-4538axcialmshmQHOPQDY MARSHALLFacility:[facility] Start: 04-09-2025 End: 57-72-6627reoojmqjyhDBXDPJ TRU TEJEDAFacility:[facility] Start: 04-02-2025 End: 99-47-1818Ckpgfgjaj Result EncounterGeneric External Data ProviderNOMS External Department UnsolicitedStart: 04-02-2025 End: 99-43-6671Gjtqkusyl Result EncounterGeneric External Data ProviderNOMS External Department UnsolicitedStart: 03-28-2025 End: 00-25-1171Qlewsu-up encounterMelrudi Peguero LPNEndocrinologyStart: 03-27-2025 End: 29-08-1706mmqvaggffuAnvivs Vaschak DO Work Phone: [facility] Work Phone: Start: 03-27-2025 End: 15-78-3288Lddalel encounter procedureAnat Perez MD-[facility] Work Phone: Start: 03-16-2025 End: 56-84-3138Feqnwl Cesar Zavala APRN.CNP Work Phone: EndocrinologyStart: 03-02-2025 End: 08-24-6721petbkeiwelEiurvf IleanaFacility:[facility] Centertart: 83-55-3811Zym-patient / Non-visitMikel Root-Heart Rhythm ClinicStart: 02-13-2025 End: 35-70-5576Xjadrwacv Result EncounterGeneric External Data ProviderNOMS External Department UnsolicitedStart: 02-13-2025 End: 77-02-0927Dbynclcyl Result EncounterGeneric External Data ProviderNOMS External Department UnsolicitedStart: 02-05-2025 End: 06-17-9058umdavesoftAdngana Bayer APRN.CNP Work Phone: RheumatologyComment on above:Blood testStart: 02-05-2025 End: 84-41-8829Iprzubxjp encounterAyana Zavala APRN.CNP Work Phone: EndocrinologyStart: 01-16-2025 End: 15-16-7358fnzoqwdgypPRNJUN J VASCHAKNot AvailableStart: 01-08-2025 End: 01-61-5081Xyvcud OnlyRobert J Vaschak DO Work Phone: noms External Department UnsolicitedStart: 01-02-2025 End: 99-35-7916Ckfuhz outpatient visit 25 minutesRobert J Care at Handchak DO Work Phone: NOZM SWS IMComment on above:Pancreatic insufficiency (HCC) (Primary Dx); PleurisyStart: 01-02-2025 End: 60-43-8079yridaifnqzGGOAKL J VASCHAKNot AvailableStart: 01-01-2025 End: 33-00-0155fuilcjynyvMooyfzsAnastasia Zavala APRN.CNP Work Phone: EndocrinologyComment on above:Rx for sensorsStart: 12-26-2024 End: 42-00-5555cijvimmvuaGpdnbrhNohelia Zavala APRN.CNP Work Phone: EndocrinologyComment on above:SensorsStart: 12-19-2024 End: 11-27-8368Uhodbejjt encounterAyana Zavala APRN.CNP Work Phone: EndocrinologyComment on above:Refill RequestStart: 12-12-2024 End: 04-05-8853RyaqadNswanqnAyana Zavala APRN.CNP Work Phone: EndocrinologyComment on above:Refill RequestStart: 11-30-2024 End: 42-16-7969wooooawglfQflglj VaschakFacility:[facility]ertart: 07-74-5750Iuz-patient / Non-visitMaria Parham [facility]hythm ClinicStart: 11-01-2024 End: 03-32-6255lxlutgrhamCasxibaNohelia Zavala APRN.CNP Work Phone: EndocrinologyComment on above:Medication changeStart: 10-26-2024 End: 88-17-1322Dfvimvn encounter procedureAyana Zavala APRN.CNP Work Phone: EndocrinologyComment on above: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, with long-term current use of insulin(HCC) (Primary Dx); 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); Insulin pump status; Insulin pump titrationStart: 10-26-2024 End: 50-18-7777khnumxtirkFRBCRORy Brumfieldcility:[facility] Start: 10-23-2024 End: 88-36-3662Nvjhqgeid Result EncounterGeneric External Data ProviderNOMS External Department UnsolicitedStart: 10-23-2024 End: 84-08-2604Fugetpgww Result EncounterGeneric External Data ProviderNOMS External Department UnsolicitedStart: 10-13-2024 End: 04-43-9462Xdjuxfbir encounterGaye Mata RNDiUT Health [facility] Hospital FHCComment on above:Omnipod/Dexcom issuesStart: 10-13-2024 End: 48-21-0514gyuywurlkmAmhxwr Vaschak DO Work Phone: [facility] Work Phone: Start: 10-13-2024 End: 27-08-2274Ylsyrjp encounter procedureRobmarsha Tejeda DO Work Phone: [facility] Work Phone: Start: 10-11-2024 End: 49-36-3827Crngjuvpf encounterAyana Zavala APRN.CNP Work Phone: EndocrinologyComment on above:Insurance Authorization (insulin pump cart,auto,BT,G6/7 (OMNIPOD 5 G6-G7 PODS, GEN 5,) crtg)Omnipod 5/Dexcom G7 issuesStart: 10-10-2024 End: 36-43-2065Ketpdlsoe encounterGaye TorresUT Health [facility] Hospital FHCComment on above:Dexcom G7 CGM supply issuesStart: 10-04-2024 End: 63-21-7141BkmugwCthzpdaLashon Zavala APRN.CNP Work Phone: EndocrinologyComment on above:Med Change RequestStart: 10-04-2024 End: 94-78-3593Scfldiwlx encounterGaye TorresUT Health [facility] Hospital FHCComment on above:Omnipod 5/Dexcom helpDexcom G7 CGM supply issues Start: 09-27-2024 End: 22-93-4465rymawtuxjfZvsfahmNohelia Zavala APRN.CNP Work Phone: EndocrinologyComment on above:GlucoseStart: 09-27-2024 End: 64-84-1004Dignscoil encounterGaye TorresUT Health [facility] Hospital FHCComment on above:Omnipod 5 pump follow up callStart: 09-26-2024 End: 25-17-3873Rlzjhy-up encounterAyana Zavala APRN.CNP Work Phone: EndocrinologyStart: 09-26-2024 End: 35-59-8081Djrmoglmc Aisha Zavala APRN.CNP Work Phone: EndocrinologyStart: 09-25-2024 End: 28-54-6799mruvfcegjbZEPECM JOSEPH VASCHAKFacility:[facility] Start: 09-25-2024 End: 52-20-3370Srwbjbo encounter Margaret Zavala APRN.CNP Work Phone: EndocrinologyComment on above: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, with long-term current use of insulin(HCC) (Primary Dx)Start: 08-31-2024 End: 68-82-7287Mboxtzfbm encounterGaye Torresabetic [facility] on above:AppointmentStart: 08-31-2024 End: 11-91-1784xnmgductlyCrylmd Vaschak DO Work Phone: [facility] Work Phone: Start: 08-31-2024 End: 04-95-8301Xbnyyjq encounter procedureRobert Vaschak DO Work Phone: [facility] Work Phone: Start: 08-30-2024 End: 36-38-4596Ifyyiz outpatient visit 40 minutesRobert Khoi Tejeda DO Work Phone: NOTN SWS IMComment on above:Abdominal wall abscess; Acquired total absence of pancreas; Insulin pump in place; Lower respiratory infection; ICD (implantable cardioverter-defibrillator) in place; H/O splenectomy; 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); Chronic systolic CHF (congestive heart failure), NYHA class 2 (CMS/HCC); Nonrheumatic mitral valve regurgitation; Pancreatic insufficiency (CMS/HCC)Start: 08-30-2024 End: 08-68-4180mvlvbavsswXWACAJ Khoi VASSUNITHAKNot AvailableStart: 08-29-2024 End: 89-72-0058earoynlvflIfuypj XavichakFacility:[facility] Centertart: 84-34-1925Kmh-patient / Non-visitRobert Vasjorge DO Work Phone: [facility] Rhythm ClinicStart: 08-15-2024 End: 42-24-2334Pbwwzuzqp encounterKirsrosy Zavala APRN.CNP Work Phone: EndocrinologyComment on above:Forms ([employer]- Physcians order)Start: 08-09-2024 End: 92-60-5683Wimghzzxh encounterKirsrosy Zavala APRN.CNP Work Phone: EndocrinologyComment on above:Forms ([employer] [facility] note)Start: 07-25-2024 End: 52-72-5853klixlckjezOJFRVM TRU TEJEDAFacility:[facility] Start: 07-25-2024 End: 13-30-3955Ryotdys evaluation of patient and reportGaye TorresUT Health [facility] FHCComment on above: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, with long-term current use of insulin(HCC) (Primary Dx)Start: 07-21-2024 End: 58-70-6001Ofuibmhmn Result EncounterGeneric External Data ProviderNOMS External Department UnsolicitedStart: 07-21-2024 End: 80-74-5758Gapmcfgqf Result EncounterGeneric External Data ProviderNOMS External Department UnsolicitedStart: 07-21-2024 End: 67-45-4367Ofzgdxybd encounterGaye TorresUT Health [facility] FHCComment on above:AppointmentStart: 07-20-2024 End: 09-35-0785jgjcwhhupmZMRKBK J VASCHAKNot AvailableStart: 07-20-2024 End: 11-34-0814Snftodkqikyv care manage srvc 7 day dischargeYomi Chong NP Work Phone: [facility] IMComment on above:Chronic systolic CHF (congestive heart failure), NYHA class 2 (CMS/HCC) (Primary Dx); Pancreatic insufficiency (CMS/HCC); History of bleeding peptic ulcer; Coronary arteriosclerosis (CMS/HCC); 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); Orthostatic hypotension; BronchitisStart: 32-49-3689Wmw-patient / Non-visitRobert Vaschak DO Work Phone: [facility] Work Phone: Start: 07-16-2024 End: 02-10-8778rhrppaiisjEaspvmgnf E DoamekporFacility:[facility] Centertart: 07-16-2024 End: 80-46-9074Xctjnxdddu and management of inpatientRobert Vaschak DO Work Phone: [facility] Work Phone: Start: 07-16-2024 End: 54-02-0458ptdfoqnfsva encounterRobert Vaschak DO Work Phone: [facility] Work Phone: Start: 07-13-2024 End: 84-72-6056K-mail encounter from Hollie TorresUT [facility] FHCStart: 07-13-2024 End: 45-15-3865Jxlqeeovn encounterGaye Mata RNDiUT Health [facility] Hospital FHCComment on above:Omnipod DASH to 5 pump upgradeStart: 07-13-2024 End: 16-37-6920dayqoyzronJyecrz Kravetz RNDiUT Health [facility] FHCStart: 07-13-2024 End: 32-53-4475Hydzdg follow up visit related to original pxFredric H Itzkowinahomy DO Work Phone: n[facility] GENSComment on above:Abdominal wall abscess (Primary Dx)Start: 07-06-2024 End: 33-04-1865Hfrmazndr encounterAyana Zavala APRN.CNP Work Phone: EndocrinologyStart: 07-06-2024 End: 07-35-5219tssnlxbzmjDQFEZRB BAYERFacility:[facility] Andersontart: 07-06-2024 End: 54-89-5324Ugybfqj encounter Margaret Zavala APRN.CNP Work Phone: EndocrinologyComment on above: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, with long-term current use of insulin(HCC) (Primary Dx); 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); Insulin pump statusStart: 07-03-2024 End: 93-14-8670lftagpzpviVFKVGY VARGAS VNot AvailableStart: 07-03-2024 End: 86-07-0095Oaymxv follow up visit related to original Charlotte Russo MD Work Phone: noms ST GENSComment on above:Abdominal wall abscess (Primary Dx)Start: 06-20-2024 End: 52-94-3871Nbnnxafl Result EncounterFredric H Itzkowitz DO Work Phone: noms External Department UnsolicitedStart: 06-20-2024 End: 18-95-1986Zffuurzl Result EncounterFredric H Itzkowitz DO Work Phone: noms External Department UnsolicitedStart: 06-20-2024 Non-patient / Non-visitRobert Ileana DO Work Phone: [facility] Rhythm ClinicStart: 06-19-2024 End: 39-96-1593Zfewhfjwgu and management of inpatientRobert Vasjorge DO Work Phone: [facility] Work Phone: Start: 06-19-2024 End: 53-99-4988bmukxpfpkdRlthhb JamakFacility:[facility] Centertart: 06-19-2024 End: 45-08-6414Rhdpds outpatient visit 40 minutesRobert Khoi Tejeda DO Work Phone: [facility] IMComment on above:Abscess of abdominal wall (Primary Dx); ICD (implantable cardioverter-defibrillator) in place; H/O splenectomy; 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); Chronic systolic CHF (congestive heart failure), NYHA class 2 (CMS/HCC); Acquired total absence of pancreasStart: 06-19-2024 End: 96-83-1498tvvfgmllsaXCCUON Khoi RAPPot AvailableStart: 06-16-2024 End: 53-92-5921Tvyrjmywlk and management of inpatientRobert Ileana DO Work Phone: [facility] [place] [facility] Work Phone: Start: 05-30-2024 End: 50-80-7375Lgtpkdjfjocj care manage srvc 7 day dischargeRobert Khoi Tejeda DO Work Phone: [facility] IMComment on above:ICD (implantable cardioverter-defibrillator) in place (Primary Dx); Hospital discharge follow-up; 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); Acquired total absence of pancreas; Coronary arteriosclerosis (CMS/HCC); Insulin pump in place; 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); Moderate pulmonary arterial systolic hypertension (CMS/HCC); Nonrheumatic mitral valve regurgitation; Chronic systolic CHF (congestive heart failure), NYHA class 2 (CMS/HCC)Start: 05-30-2024 End: 79-23-7386dmilrwchldMGBDPG J JAMAKNot AvailableStart: 62-21-4483Xwf- patient / Non-visitRobert Vaschak DO Work Phone: [facility] Work Phone: Start: 05-24-2024 End: 98-01-2589Twcfluzvuk and management of inpatientRobert Vaschak DO Work Phone: [facility] [place] [facility] Work Phone: Start: 43-52-3379Elu-patient / Non-visitRobert Vaschak DO Work Phone: [facility] Rhythm ClinicStart: 05-16-2024 End: 81-72-3843Lgzhcvf encounter procedureDO Marie Tejeda Work Phone: [facility]-Pre-Surgical Testing Work Phone: Start: 05-16-2024 End: 50-82-8800pclhbqvpgzLU Marie Tejeda Work Phone: [facility] Work Phone: Start: 88-49-4952Adhlqocvu for preprocedural laboratory examinationSDukes Memorial Hospital Physician GroupStart: 05-10-2024 End: 43-28-7750fmqxuovvlpQV Marie Tejeda Work Phone: [facility] Work Phone: Start: 05-10-2024 End: 68-23-4306Ldlnrka encounter procedureDO Marie Tejeda Work Phone: [facility] Work Phone: Start: 04-26-2024 End: 34-53-6323jyxwtgkrrwIH Marie Tejeda Work Phone: [facility] Work Phone: Start: 04-26-2024 End: 95-32-7534Uyhzzyl encounter procedureDO Marie Tejeda Work Phone: [facility] Work Phone: Start: 04-26-2024 End: 62-98-3179Xgxaayz encounter procedureDO Marie Yunbrody Work Phone: [facility]-Heart Rhythm ClinicStart: 04-26-2024 End: 67-09-9295airknoithaJU Marie Tejeda Work Phone: [facility] Work Phone: Start: 04-24-2024 End: 42-70-5645Dihyqu outpatient visit 25 minutesAnatoly Anne NP Work Phone: noms SWS IMComment on above:Pancreatic insufficiency (CMS/HCC) (Primary Dx); Coronary arteriosclerosis (CMS/HCC); 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 (CMS/HCC); 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); H pylori ulcerStart: 04-17-2024 End: 54-66-5628Xxhuqd outpatient visit 40 minutesMarie Westfall Xavijorge CURTIS [...] systolic congestive heart failure (CMS/HCC)Start: 04-17-2024 End: 64-94-1637Eaabglj encounter procedureRobert Khoi Tejeda DO Work Phone: [facility]oms HealthcareStart: 04-05-2024 End: 09-29-8574sxsustmvroTYGDVQYBProMedica [facility] Park Hospital Start: 03-27-2024 End: 66-87-4160npuuytpmyfYL Marie Tejeda Work Phone: [facility] Work Phone: Start: 03-27-2024 End: 28-43-4607Nazmqmi encounter procedureDO Marie Tejeda Work Phone: [facility] Work Phone: Start: 03-15-2024 End: 32-67-6079dvfabtavlsXL Marie Tejeda Work Phone: [facility] Work Phone: Start: 03-15-2024 End: 88-06-2313Viwmzmu encounter procedureDO Marie Tejeda Work Phone: [facility] Work Phone: Start: 03-10-2024 End: 19-93-3326kfcnziyorfIC Marie Tejeda Work Phone: [facility] Work Phone: Start: 03-10-2024 End: 52-48-2215Aanofocqkk RecurringDO Marie Tejeda Work Phone: [facility]-Infusion Therapy - O/P Work Phone: Start: 03-09-2024 End: 97-50-4126Jciqzmz encounter procedureDO Marie Tejeda Work Phone: [facility]-Electrodiagnostics Work Phone: Start: 03-09-2024 End: 98-62-7511xhfxkuturkUU Marie Tejeda Work Phone: [facility] Work Phone: Start: 49-28-3586Afb-patient / Non-visitDO Marie Xavijorge Work Phone: [facility] Work Phone: Start: 34-41-8804Atjzjssvum RecurringDO Marie Hurleysunithabrody Work Phone: [facility]-Infusion Therapy - O/P Work Phone: Start: 02-29-2024 End: 28-99-3343ckuppxhfsoAG Marie Hurleyjorge Work Phone: [facility] Work Phone: Start: 02-29-2024 End: 44-17-0570Vbbwpyj encounter procedureDO Marie Xavijorge Work Phone: [facility] Work Phone: Start: 02-16-2024 End: 83-29-2846pnhnypvbmjWC Marie Tejeda Work Phone: [facility] Work Phone: Start: 02-16-2024 End: 64-04-9685Unmhzgi encounter procedureDO Marie Hurleysunithabrody Work Phone: [facility] [place] Work Phone: Start: 02-15-2024 End: 49-76-2221qyctjdudszOQ Marie Hurleysunithabrody Work Phone: [facility] Work Phone: Start: 02-15-2024 End: 05-69-5889Xcoibun encounter procedureDO Marie Tejeda Work Phone: [facility] Work Phone: Start: 02-14-2024 End: 22-81-1785fqmckkyuicKR Marie Xavijorge Work Phone: [facility] Work Phone: Start: 02-14-2024 End: 67-83-8425Hjxmeuw encounter procedureDO Marie Tejeda Work Phone: [facility] [place] Work Phone: Start: 02-11-2024 End: 05-16-7793nucnecwihqEB Marie Tejeda Work Phone: [facility] Work Phone: Start: 02-11-2024 End: 09-96-2710Ubyhxqd encounter procedureDO Marie Tejeda Work Phone: [facility] [place] Work Phone: Start: 16-47-8851Isd-patient / Non-visitDO Marie Tejeda Work Phone: [facility] Work Phone: Start: 62-72-3293Mbh-patient / Non-visitDO Marie Tejeda Work Phone: [facility] Gastroenterology Work Phone: Start: 02-05-2024 End: 11-87-2575Bzhgwcvjkg and management of inpatientDO Marie Tejeda Work Phone: [facility] [place] [facility] Work Phone: Start: 01-24-2024 End: 72-04-8151bhocvrxwccDSHP D BROOKENSProMedica Lovell HospitalStart: 01-21-2024 End: 65-05-9285Mdszafokkz and management of inpatientVENU GOSCOTTA Светлана EUCEDANA [facility] HospitalStart: 12-28-2023 End: 54-55-7211Maiqjpudt Result EncounterGeneric External Data ProviderNOMS External Department UnsolicitedStart: 12-28-2023 End: 38-68-1900Ylajbpghr Result EncounterGeneric External Data ProviderNOMS External Department UnsolicitedStart: 34-65-6800Rce-patient / Non-visitDO Marie Hurleyjorge Work Phone: [facility] Work Phone: Start: 11-11-2023 End: 87-59-5267Gkttleqby to same day surgery centerDO Marie Hurleyjorge Work Phone: [facility]-Digestive Health Work Phone: Start: 11-04-2023 End: 21-18-0377tuuenvtcqbJbtf ProviderFacility:[facility] Centertart: 10-28-2023 End: 42-99-5586nfokacdglcLM Marie Tejeda Work Phone: [facility] Work Phone: Start: 10-28-2023 End: 93-39-0557Gwbugyf encounter procedureDO Marie Yunbrody Work Phone: [facility] Work Phone: Start: 10-21-2023 End: 58-66-6742mkyuqahgigLM Marie Tejeda Work Phone: [facility] Work Phone: Start: 10-21-2023 End: 27-85-1056Ydbxdyz encounter procedureDO Marie Tejeda Work Phone: [facility] Work Phone: Start: 10-13-2023 End: 94-93-6518yedfarpdovFdqh ProviderFacility:[facility] Centertart: 09-28-2023 End: 98-26-1678hwtisamabtUM Marie Yunbrody Work Phone: [facility] Work Phone: Start: 09-28-2023 End: 75-76-7075Eqnrcmb encounter procedureDO Marie Yunbrody Work Phone: [facility] Work Phone: start: 09-27-2023 End: 38-83-2685smfeepjubdEM Marie Tejeda Work Phone: [facility] Work Phone: Start: 09-27-2023 End: 67-02-0789Nrngeyawjr RecurringDO Marie Tejeda Work Phone: [facility]-Infusion Therapy - O/P Work Phone: Start: 09-24-2023 End: 11-88-3729naacpxqyhvQK Marie Tejeda Work Phone: [facility] Work Phone: Start: 09-24-2023 End: 20-20-0543Uvplarh encounter procedureDO Marie Tejeda Work Phone: [facility] [place] Work Phone: Start: 00-96-7144Ido-patient / Non-visitDO Marie Tejeda Work Phone: [facility] Work Phone: Start: 85-24-4270Vcj-patient / Non-visitDO Marie Tejeda Work Phone: [facility] Work Phone: Start: 08-31-2023 End: 97-37-5843Zmounkbhvg and management of inpatientDO Marie Tejeda Work Phone: [facility] [place] [facility] Work Phone: Start: 08-16-2023 End: 42-69-0760eobgzrgzjoRCMON K SMITHBellingham [employer] Other Start: 08-16-2023 End: 96-47-6158Tkzgfr outpatient visit 15 minutesSammy Berman DOCUMENTATION ENGINEER-SENIOR ELECTRONICS TECHNICIAN Work Phone: uh Fireseattle va medical centerComment on above:Cardiomyopathy, ischemic (Primary Dx); ASHD (arteriosclerotic heart disease); BMI 20.0-20.9, adult; OrthopneaStart: 79-22-2861Awlhcguri encounterLinda NjorogeFPG CardiologyStart: 07-27-2023 End: 24-97-4429jurrcdoknzFY Marie Hurleyjorge Work Phone: [facility] Work Phone: Start: 07-27-2023 End: 97-35-6010Kmewmsi encounter procedureDO Marie Yunbrody Work Phone: [facility] Start: 07-16-2023 End: 23-74-0023Trcpggzeg to same day surgery centerDO Marie Hurleyjorge Work Phone: [facility]-Child Development Specialist Work Phone: Start: 07-16-2023 End: 79-83-1501krjzpetygnIK Marie Hurleyjorge Work Phone: [facility] Work Phone: Start: 06-23-2023 End: 16-92-1841rwitaeicnaRXLMU [facility] AmbulatoryStart: 06-22-2023 End: 58-93-6502oajyxfpfksMnhcxjp Howie Other [facility] [employer] Other Start: 27-70-0640Ruwemquda encounterColleen [facility] OrthopedicsStart: 06-11-2023 End: 05-22-6646uggursfxunZQ Marie Tejeda Work Phone: [facility] Work Phone: Start: 06-11-2023 End: 56-15-7769Nznudre encounter procedureDO Marie Yunbrody Work Phone: [facility] Start: 06-02-2023 End: 59-17-5513prwcbprbgtMQJOTSC PROVIDERFacility:METROHealthStart: 05-26-2023 Telephone encounterColljace [facility] OrthopedicsStart: 05-26-2023 End: 53-02-3739fsigmyvgueVZ Marie Tejeda Work Phone: [facility] Work Phone: Start: 05-26-2023 End: 96-79-3194Tpccjdf encounter procedureDO Marie Tejeda Work Phone: [facility] Start: 05-25-2023 End: 10-49-8313ysviyzucgiWDGVXSUMyMichigan Medical Center Clare AmbulatoryStart: 05-25-2023 End: 67-28-9697Avwjfe consultation new/estab patient 62 [address] [facility] Work Phone: [facility] CenterComment on above:NSTEMI (non-ST elevated myocardial infarction) (CMS/HCC) (Primary Dx); Abnormal stress test; ASHD (arteriosclerotic heart disease); Essential hypertension; Diabetes mellitus type II, non insulin dependent (CMS/HCC); Closed fracture of right hip, initial encounter (CMS/HCC)Start: 05-21-2023 End: 08-26-7885veneyxuupiQdzeftv [place] Other [place] [employer] Other Start: 33-40-3987Ewmtmb follow up visit related to original pxCotrent Sena OrthopedicsStart: 05-21-2023 End: 40-67-9358Mxxnocg encounter procedureDO Marie Tejeda Work Phone: [facility] Start: 05-03-2023 End: 93-38-0809Bviubndjdt and management of inpatientDO Marie Tejeda Work Phone: [facility] [place] [facility] Work Phone: Start: 04-28-2023 End: 93-91-0543Ctkfmviurm and management of inpatientDO Marie Tejeda Work Phone: [facility] [place] [facility] Work Phone: Start: 04-23-2023 End: 90-92-6093sudrgllyspIuko ProviderFacility:[facility] Centertart: 04-12-2023 End: 21-73-5785Wzdlutelg Result EncounterGeneric External Data ProviderNOMS External Department UnsolicitedStart: 04-12-2023 End: 60-83-4153Nmyyghfzg Result EncounterGeneric External Data ProviderNOMS External Department UnsolicitedStart: 01-20-2023 End: 60-28-7791Fmmzugf encounter procedureAnatoly Anne HOSPITAL CHIEF EXECUTIVE OFFICER Work Phone: [facility] HealthcareStart: 06-05-2022 End: 80-24-4684zsgwkzwckbPP MARIE XAVIST. [facility] CAMPUSFacility:G3Glqhb: 51-11-7097Rosppggpu for other specified special examinationsDR [facility] Start: 05-14-2022 End: 52-40-8075zbldzsijyiFP MARIE [facility] Pasocility:I8Qjeyv: 05-14-2022 End: 00-22-3295Rndztrxbb for other specified special examinationsDR [facility]ucahcility:K7Xswep: 01-02-2022 End: 86-71-0595Ifjqodxqhn and management of inpatientDELON CARRIONOhio Valley Surgical Hospitaltart: 01-02-2022 End: 83-31-2661Catgxxjvqk and management of inpatientGray Ross MD Work Phone: stVZ 4B StepdownComment on above:Acute gastric ulcer with perforation (HCC) (Primary Dx); Gastric perforation (HCC)Start: 01-02-2022 End: 98-54-3272uwimtqyjafUY BENJAMIN BALLFacility:H1 Procedures DateProcedureProcedure DetailPerforming ClinicianStart: 45-06-9136NHTSjogkne External Data ProviderStart: 48-61-4375GJUByexkat External Data ProviderStart: 15-02-4160MRN GLUCOSE P FAST SERPL-MCNCGeneric External Data ProviderStart: 55-38-7430QXT PRO BNPGeneric External Data ProviderStart: 04-75-2380BZH CMP (CMP) (FOR REMOTE [facility] USE)Generic External Data ProviderStart: 02-13-2025 GLUTAMIC AC DECARBOXYLASE ABAyana Zavala APRN.SENIOR ELECTRONICS TECHNICIAN Work Phone: Start: 87-15-0033LTK HEMOGLOBIN P3NVkbmjeo External Data ProviderStart: 25-51-0595QMU GLUCOSE BLOODGeneric External Data Provider Start: 16-38-4387Mvtdhlxrvq bloodRobert J Vaschak DO Work Phone: Start: 07-39-1382Vhuoupkxko A1c/Hemoglobin.total in Kassidy Zavala APRN.SENIOR ELECTRONICS TECHNICIAN Work Phone: Start: 49-58-9863OKI BASIC METABOLIC PANELGeneric External Data ProviderStart: 95-38-8164RZO PRO BNPGeneric External Data Provider Start: 92-79-7107BLB BASIC METABOLIC PANELGeneric External Data ProviderStart: 60-26-3115QEL PRO BNPGeneric External Data ProviderStart: 82-47-8821UNF BASIC METABOLIC PANELGeneric External Data ProviderStart: 43-03-5603Hzzwciclsma Panel (PCR)Marie Vassunithak DO Work Phone: Start: 44-26-4392FF angiography of thoraxRobert Vaschak DO Work Phone: Start: 31-07-9212Cztve chest X-rayRobert Vassunithak DO Work Phone: Start: 97-84-1179Tnam bld gluc mntr dev cleared fda spec home useKirsrosy Zavala APRN.SENIOR ELECTRONICS TECHNICIAN Work Phone: Start: 26-04-5446VDFBXC ON DEMANDCcf ProviderStart: 09-55-5788Bwtcucsqkn A1c/Hemoglobin.total in Kassidy Zavala APRN.SENIOR ELECTRONICS TECHNICIAN Work Phone: Start: 75-41-2526AqitizohtpjAducqt Vassunithak DO Work Phone: Start: 79-78-5535Walvwot microbial cultureRobert Vassunithak DO Work Phone: Start: 23-00-6090Ohjrkgiek microbial cultureRobert Vassunithak DO Work Phone: Start: 33-27-1384Jhix stain microscopyRobert Vassunithak DO Work Phone: Start: 29-70-0487CUATXZH CULTUREFredric H Itzkowitz DO Work Phone: Start: 21-26-7914XSKWVSJBV CULTUREFredric H Itzkowitz DO Work Phone: Start: 59-35-4760Zmvdvew microbial cultureRobert Jamak DO Work Phone: Start: 25-43-2422Gmxupklb identified in Blood by CultureRobert Vassunithak DO Work Phone: start: 06-30-0784MV of abdomen with contrastRobert Ileana DO Work Phone: Start: 99-27-7251Jtcbg chest X-rayRobert Ileana DO Work Phone: Start: 19-77-5647Rfjmesqsoket of cardiac pacemaker Marie Tejeda DO Work Phone: Start: 23-07-5516Kdiedjbvsy glycosylated s6vKkbdjq Khoi Tejeda DO Work Phone: Start: 74-59-6511VaflpcyhfbowsbufpvqorgqsjeQV Marie Tejeda Work Phone: Start: 75-42-0344TZ cervical spine without contrastDO Marie Tejeda Work Phone: Start: 96-68-0978LC of head without contrastDO Marie Tejeda Work Phone: Start: 54-48-6622Nxzgu chest X-rayDO Marie Tejeda Work Phone: Start: 96-52-1697Oihph Occult Blood (DORON)DO Marie Tejeda Work Phone: Start: 14-59-6308Nzb spinal canal cervical w/o contrast matrlGeneric External Data ProviderStart: 11-11-2023 EsophagogastroduodenoscopyDO Marie Tejeda Work Phone: Start: 91-28-1016K-ray of cervical spineDO Marie Tejeda Work Phone: Start: 67-12-7739N-ray of cervical spineDO Marie Tejeda Work Phone: Start: 92-61-8569TPDXKO UP IN CARDIOLOGYWESTOVER [facility] SHELDONStart: 95-92-6545Ctfkk X-ray of right hipDO Marie Tejeda Work Phone: Start: 72-62-8696KW PCI MATERIAL COMBINER Ea Add LADDO Marie Tejeda Work Phone: Start: 68-15-1050BM Stent 1st Vessel LAD DESDO Marie Tejeda Work Phone: Start: 89-95-3901YIUNBW UP IN CARDIOLOGYWESTOVER [facility] SHELDONStart: 10-25-4325Yyfbo X-ray of right femurDO Marie Tejeda Work Phone: Start: 42-07-9825MNK 12-LEADWESTOVER AIR FORCE [facility] SHELDONStart: 11-33-9218Yhc routine ecg w/least 12 lds w/i&rWilliam S Ryan DO Work Phone: Start: 47-94-2252Sorob X-ray of right hipDO Marie Tejeda Work Phone: Start: 04-30-2023 End: 80-57-6792Nllbr X-ray of right hipDO Marie Tejeda Work Phone: Start: 20-26-3896Noqf reduction of fracture with internal fixationDO Marie Tejeda Work Phone: Start: 36-75-6450Qpjko chest X-rayDO Marie Tejeda Work Phone: Start: 09-33-5812KB LHC & COR AngioDO Marie Tejeda Work Phone: Start: 24-83-0677Udaw reduction of fracture with internal fixationDO Marie Tejeda Work Phone: Start: 10-81-9732Unudf chest X-rayDO Marie Tejeda Work Phone: Start: 88-43-5320Xnhnp X-ray of right femurDO Marie Tejeda Work Phone: Start: 37-82-5631Renwb X-ray of right hipDO Marie Tejeda Work Phone: Start: 49-10-7510QP RENAL AND BLADDERGeneric External Data ProviderStart: 21-62-9274Twwjj of magnesiumBreana Johnson MD Work Phone: Start: 85-14-0481FWDNT METABOLIC PANEL W/ REFLEX TO MG FOR LOW KMatthew T Slack DO Work Phone: Start: 78-81-0399NVASHXTH PLATELET FRACTIONBreana Johnson MD Work Phone: Start: 21-36-4897Mxyvy of phosphorus inorganicMatthew T Slack DO Work Phone: Start: 47-57-6294IMWLK METABOLIC PANEL W/ REFLEX TO MG FOR LOW KMatthew T Slack DO Work Phone: Start: 85-80-8800FLDQOPJS PLATELET FRACTIONBreana Johnson MD Work Phone: Start: 52-02-8577Dxuvsisbgn exam upr gi trc single contrast Jose Johnson MD Work Phone: Start: 90-63-6364Jrljl of magnesiumKings Francis MD Work Phone: Start: 22-75-2024LAFZH METABOLIC PANEL W/ REFLEX TO MG FOR LOW KAarocayla Francis MD Work Phone: Start: 00-82-1733OELCAGZR PLATELET FRACTIONBreana Johnson MD Work Phone: Start: 80-47-7494Dvixz of magnesiumAaron N Andrea OGLESBY Work Phone: Start: 41-12-2633YQRWP METABOLIC PANEL W/ REFLEX TO MG FOR LOW KAaron N Andrea OGLESBY Work Phone: Start: 70-39-3713Pmeyf of phosphorus inorganicKings Francis MD Work Phone: Start: 05-83-4793ZDDBR METABOLIC PANEL W/ REFLEX TO MG FOR LOW KAaron N Andrea OGLESBY Work Phone: Start: 43-17-7589Kfjto of magnesiumAaron Cayla Francis MD Work Phone: Start: 17-85-8188LJPIM METABOLIC PANEL W/ REFLEX TO MG FOR LOW KAaron N Andrea OGLESBY Work Phone: Start: 96-03-8390Tdhvv of phosphorus inorganicAaron N Andrea OGLESBY Work Phone: Start: 62-58-9521SOLDT METABOLIC PANEL W/ REFLEX TO MG FOR LOW KAaron N Andrea OGLESBY Work Phone: Start: 01-04-2022 End: 77-10-9588Umedi of phosphorus inorganicAaron N Andrea OGLESBY Work Phone: Start: 25-42-9065BELQK METABOLIC PANEL W/ REFLEX TO MG FOR LOW KAaron N Andrea OGLESBY Work Phone: Start: 33-51-6365Rkzoogf blood reagent stripDelon Carrion DOStart: 01-04-2022 End: 57-32-1524Oxawh of phosphorus inorganicAaron Cayla Francis MD Work Phone: Start: 01-69-5792RHLQQ METABOLIC PANEL W/ REFLEX TO MG FOR LOW KAaron N Andrea OGLESBY Work Phone: Start: 01-03-2022 End: 05-30-3804Yhvbc of phosphorus inorganicAaron Cayla Francis MD Work Phone: Start: 11-00-5273WNJLB METABOLIC PANEL W/ REFLEX TO MG FOR LOW KAaron N Andrea OGLESBY Work Phone: Start: 01-03-2022 End: 42-42-1050Hbxofnm blood reagent stripDelon Carrion DOStart: 01-03-2022 Glucose blood reagent stripDelon Carrion DOStart: 01-03-2022 End: 46-79-9917Ntzsx of phosphorus Jung Francis MD Work Phone: Start: 71-49-3100ZGTFM METABOLIC PANEL W/ REFLEX TO MG FOR LOW Jessicacayla Francis MD Work Phone: Start: 01-03-2022 End: 25-30-7196Lmqlpfc blood reagent stripDelon Carrion DOStart: 01-03-2022 Glucose blood reagent stripDelon Carrion DOStart: 01-03-2022 End: 55-38-3920Hggjd of phosphorus Jung Francis MD Work Phone: Start: 68-21-0568EZDTJ METABOLIC PANEL W/ REFLEX TO MG FOR LOW Palmira Francis MD Work Phone: Start: 01-03-2022 End: 64-58-1881Zvbgp of phosphorus Jung Francis MD Work Phone: start: 44-81-6894JGLBH METABOLIC PANEL W/ REFLEX TO MG FOR LOW KISHANmilena Francis MD Work Phone: Start: 01-03-2022 End: 56-32-3236Vxrohtm blood reagent stripDelon Carrion DOStart: 01-03-2022 End: 38-57-4438Hqqfr of phosphorus Jung Francis MD Work Phone: Start: 23-43-2668RAQNI METABOLIC PANEL W/ REFLEX TO MG FOR LOW KISHANmilena Francis MD Work Phone: Start: 01-03-2022 End: 30-89-0999Ftdycgf blood reagent stripDelon Carrion DOStart: 01-02-2022 Glucose blood reagent stripDelon Carrion DOStart: 01-02-2022 End: 41-61-9603Crlxxfk blood reagent stripJohn J Leskovan DOStart: 01-02-2022 Radiologic exam abdomen 1 viewTricia Ange DOStart: 41-02-1699Xdevftp bacterial quanttative colony count urineTristan Bueno DO Work Phone: Start: 01-02-2022 End: 65-02-0605Korpkug blood reagent stripDelon Carrion DOStart: 01-02-2022 End: 01-86-7521GNWWP RESECTION HEMICOLECTOMY LAPAROSCOPIC ROBOTICTristan Bueno DO Work Phone: Start: 01-02-2022 End: 81-69-2842OZT DIAGNOSTIC ONLYTristan Bueno DO Work Phone: Start: 79-71-9529Vmsnq metabolic panel calcium total Breana Johnson MD Work Phone: Start: 45-62-9630Nyiwrvu function panelBreana Johnson MD Work Phone: Start: 47-62-0163RDPGPHZ, SEPSISJumarianne Johnson MD Work Phone: Start: 91-15-2512Epjkptl blood reagent stripGray Ross MD Work Phone: Start: 12-30-2019H/O splenectomyH/O splenectomyYuerong Cally HOSPITAL CHIEF EXECUTIVE OFFICER Work Phone: AppendectomyTristan MELCHOR Cardiac pacemaker, device (physical object)Tristan MELCHOR Extraction of cataractTristan MELCHOR H/O splenectomyH/O splenectomyRobert J Vaschak DO Work Phone: H/O splenectomyH/O splenectomyRobert J Vaschak DO Work Phone: H/O splenectomyH/O splenectomyRobert J Vaschak DO Work Phone: H/O splenectomyWalkerory JULIO H/O splenectomyH/O splenectomyAmy Warchol HOSPITAL CHIEF EXECUTIVE OFFICER Work Phone: PancreatectomyTristan MELCHOR Placement of stent in cardiac conduitTristan MELCHOR TonsillectomyTristan MELCHOR Plan of Treatment DateCare ActivityDetailAuthorStart: 22-51-3283Psfyf microalbumin profile DTaP,Tdap,Td Vaccine (4 - Td or Tdap)[facility]: 03-18[facility]2028 DTaP/Tdap/Td vaccine (3 - Td or Tdap)DTaP/Tdap/Td vaccine (3 - Td or Tdap)[facility]Start: 25-27-8747APaI/Tdap/Td Vaccines (3 - Td or Tdap) DTaP/Tdap/Td Vaccines (3 - Td or Tdap)[facility] CenterStart: 19-19-3802Avbvbdbd ScreeningDiabetes ScreeningAshtabula General Hospitaltart: 09-25-2025 Hepatitis B screeningUrine Albumin:Creatinine RatioAshtabula General Hospitaltart: 02-97-9681Ajetpmrpe B surface antibody levelLDL CholesterolUniversity Hospitals Portage Medical Center Start: 11-77-8805Poqcb screening for proteinDiabetes: Urine Protein Screening [facility] HealthcareStart: 87-02-2720Ksbluqxtkk A1c measurementDiabetes: Hemoglobin E2GQYLS HealthcareStart: 06-21-2025 End: 61-20-1390Uxibtis encounter edbejipym21/11/2025 1:00 PM EST Office Visit [facility] [address] [place] [address] Marga Robledo NP [address] [place] [address] [facility] MedicineStart: 10-07-2025Medicare Annual Wellness (AWV)Medicare Annual Wellness (AWV)[facility] HealthcareStart: 04-09-2025 End: 29-70-8091Qqkdwbp encounter ldbrtqedb98/29/2025 2:00 PM EDT Office Visit Endocrinology [address] [place], [place] [id number] Ayana Zavala APRN.SENIOR ELECTRONICS TECHNICIAN [address] [facility] [place] [address] *R/S from 01/25EndocrinologyComment on above:*R/S from 01/25Start: 54-47-5497KbotkekOhioHealth [facility] Work Phone: Start: 48-69-3136WNTQQ-19 Vaccine ( season) COVID-19 Vaccine ( season)[facility] HealthcareStart: 94-59-1069Bodsalmgq vaccinationInfluenza Vaccine (#1)[facility] HealthcareStart: 02-06-2025 End: 28-86-7547Dvmupsinr decarboxylase 65 Ab [Units/volume] in SerumGLUTAMIC AC DECARBOXYLASE AB Lab Routine 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, with long-term current use of insulin (HCC) Expected: 02/05/2025, Expires: 05/07/2025 [facility] CenterComment on above:Expected: 02/05/2025, Expires: 05/07/2025Start: 02-05-2025 End: 31-84-0041Okhmmdy glucose [Mass/volume] in Serum or PlasmaGLUCOSE, FASTING Lab Routine 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, with long-term current use of insulin (HCC) Expected: 02/05/2025, Expires: 05/07/2025 [facility] Work Phone: Comment on above:Expected: 02/05/2025, Expires: 05/07/2025Start: 29-64-3852Yysilflbeb A1c measurementAshtabula General Hospitaltart: 01-25-2025 End: 55-83-1760Ginjmxy encounter bhoezvjlp61/17/2025 2:00 PM EDT Office Visit Endocrinology [address] [facility] [place] [address] Ayana Zavala, DOCUMENTATION ENGINEER.SENIOR ELECTRONICS TECHNICIAN [address] [place] [address] 2 month follow up DMEndocrinologyComment on above:2 month follow up DMStart: 01-16-2025 End: 49-69-9121Jkpthkyujsbb / ancillary services kmximetavj81/08/2025 11:30 AM EDT Ancillary Procedure [facility] [address] [place] [address] [address]Start: 01-03-2025 End: 59-51-1828Wpwroytxsv [Mass/volume] in Serum or PlasmaCreatinine, Serum Lab Routine Pleurisy Expected: 01/03/2025 (Approximate), Expires: 01/03/2026NOTN HealthcareComment on above:Expected: 01/03/2025 (Approximate), Expires: 01/03/2026Start: 01-03-2025 End: 18-24-2013PUS Chest vessels WO and W contrast IVCT angiogram chest Imaging Routine Pleurisy Expected: 01/03/2025 (Approximate), Expires: 04/05/2025NOGolden [facility] Work Phone: Comment on above:Expected: 01/03/2025 (Approximate), Expires: 04/05/2025Start: 12-25-1665Xfdtmluc screeningDiabetes: Retinopathy ScreeningVA HOSPITAL HealthcareStart: 24-04-1626Twytv-19 Vaccine ( season) Covid-19 Vaccine ( season)[facility] Hospitaltart: 10-26-2024 End: 27-38-4608Gqusocr encounter xgraoyxku50/17/2025 12:15 PM EDT Office Visit Endocrinology [address] [facility] [place] [address] Ayana Zavala, DOCUMENTATION ENGINEER.SENIOR ELECTRONICS TECHNICIAN [address] [place] [address] Return in about 4 weeks (around 10/23/2024). EndocrinologyComment on above:Return in about 4 weeks (around 10/23/2024).Start: 34-25-2193Wtgqwfnonf A1c measurementLake Regional Health SystemStart: 09-25-2024 End: 50-58-0949Qxqaxli encounter soqlwwlze54/17/2025 2:30 PM EDT Office Visit Endocrinology [address] [facility] [place] [address] Ayana Zavala, DOCUMENTATION ENGINEER.SENIOR ELECTRONICS TECHNICIAN [address] [place] [address] Return in about 6 weeks (around 08/17/2024). EndocrinologyComment on above:Return in about 6 weeks (around 08/17/2024).Start: 09-25-2024 End: 52-32-8809Urlylphpzhcjp metabolic 2000 panel - Serum or PlasmaMercy Health – [facility] Work Phone: Comment on above:Expected: 09/25/2024, Expires: 12/25/2024Start: 09-25-2024 End: 23-21-4474ISDIB PANEL, NONFASTINGUniversity Hospitals Portage Medical CenterComment on above:Expected: 09/25/2024, Expires: 12/25/2024Start: 09-25-2024 End: 44-11-7831Xoystmcbrizv/Creatinine [Mass Ratio] in UrineUniversity Hospitals Portage Medical Center Comment on above:Expected: 09/25/2024, Expires: 12/25/2024Start: 84-88-0313Pjnhs screening for proteinDiabetes: Urine Protein ScreeningLake Regional Health SystemStart: 09-04-2024 End: 37-75-1616Tyrcbyv evaluation of patient and itnqqw1309/04/2024 1:00 PM EST Nurse Visit [facility] [address] [place] [address] Gaye Mata, KARIN Omnipod DASH to Omnipod 5 upgrade with Dexcom G7 trainingDiCitizens Medical CenterCComment on above:Omnipod DASH to Omnipod 5 upgrade with Dexcom G7 trainingStart: 08-29-2024 End: 17-99-1187Fjjiqdc encounter lhxqvugtg72/18/2025 1:30 PM EST Office Visit Endocrinology [address] [place] [address] Ayana Zavala, AMADA.SENIOR ELECTRONICS TECHNICIAN [address] [place] [address] Return in about 6 weeks (around 08/17/2024). EndocrinologyComment on above:Return in about 6 weeks (around 08/17/2024).Start: 08-18-2024 End: 39-98-9367Odkqlio encounter fheoczcle96/07/2025 8:30 AM EST Office Visit Endocrinology [address] [place] [address] Ayana Zavala, DOCUMENTATION ENGINEER.SENIOR ELECTRONICS TECHNICIAN [address] [place] [address] Return in about 6 weeks (around 08/17/2024). EndocrinologyComment on above:Return in about 6 weeks (around 08/17/2024).Start: 08-02-2024 End: 98-48-7510Jzegytn encounter /22/2025 10:00 AM EST Office Visit [facility] [address] [place] [address] Marie Tejeda DO [address] [place] [address] [facility] IMStart: 07-25-2024 End: 29-15-8657Pnxdbsu evaluation of patient and ltmunt7107/25/2024 1:00 PM EST Nurse Visit [facility] [address] [place] [address] Gaye Mata, RN Omnipod 5 upgrade from [employer] with Dexcom G6 CGM. Needs carb counting. Coming from [place], [place] with Diabetic [facility] FHCComment on above:Omnipod 5 upgrade from [employer] with Dexcom G6 CGM. Needs carb counting. Coming from [place], [place] with Start: 07-20-2024 End: 41-23-4966Sidho metabolic 1998 panel - Serum or PlasmaBasic metabolic panel Lab Routine Chronic systolic CHF (congestive heart failure), NYHA class 2 ([facility]) Expected: 07/20/2024 (Approximate), Expires: 07/24/2024NOGolden Valley Memorial Hospital Work Phone: Comment on above:Expected: 07/20/2024 (Approximate), Expires: 07/24/2024Start: 70-52-4787Czruadmkbh A1c measurementDiabetes: Hemoglobin T4DIHYHLake Regional Health SystemStart: 07-17-2024 End: 21-61-2313GgoxpewhsUC Medical Centertart: 76-70-6089Kcudcnne to cardiologistUC Medical Centertart: 29-29-6516Udbhztzykqp pathogens DNA and RNA panel - Nasopharynx by ANASTASIA with non-probe detection [facility]ertart: 12-84-8442Mgavdxtw therapy procedure [facility]ertart: 83-61-3613Ixrjbwqk to occupational therapistUC Medical Centertart: 75-79-9886JxcsnhcbeUC Medical Centertart: 54-36-3359Xyhllffv admissionUC Medical Centertart: 07-13-2024 End: 71-04-1655Zylarpg encounter xjqznamwh67/02/2025 10:45 AM EST Office Visit [facility] [address] [facility] [address] [place] [address] Stephanie Sheridan DO [address] [facility] [address] [place] [address] NOMKasey NAIKtart: 46-23-4443Cvhmcdc Directive DiscussionAdvance Directive DiscussionAshtabula General Hospitaltart: 07-03-2024 End: 94-64-9388Rvbweqs encounter akmkoebfz47/23/2024 9:00 AM EST Office [facility] [address] [place] [address] Beto Russo MD [address] [place] [address] ALDRICHtart: 64-02-1394MebqxeqpoGerman Hospital Start: 99-72-9493Hnswubca to general surgeonGerman Hospital Start: 29-50-3834Vtctlctt admissionUC Medical Centertart: 06-19-2024 End: 85-91-1198Whfzeve encounter ujpetazma62/09/2024 3:00 PM EST Office Visit [facility] [address] [place] [address] Marie Tejeda DO [address] [place] [address] [facility] IMStart: 06-18-2024 End: 73-97-1827ShtwknioyUC Medical Centertart: 48-47-2365OeqkddllfUC Medical Centertart: 09-97-9701Frlkmyzb admissionUC Medical Centertart: 18-78-4569Aejcsvvn to infectious diseases physician [facility]ertart: 24-07-5899Dkuxxvib of Abdomen Subcutaneous Tissue and Fascia, Open ApproachDrainage of Abdomen Subcutaneous Tissue and Fascia, Open ApproachUC Medical Centertart: 17-25-0834WhasgaoavUC Medical Centertart: 52-81-0044Gjespzzx admission [facility]ertart: 92-90-1044OkwurgtpeUC Medical Centertart: 75-99-9558UdxikpvvaGerman Hospital CenterStart: 05-24-2024 Insertion of Defibrillator Generator into Chest Subcutaneous Tissue and Fascia, Open ApproachInsertion of Defibrillator Generator into Chest Subcutaneous Tissue and Fascia, Open ApproachUC Medical Centertart: 05-24-2024 Insertion of Defibrillator Lead into Right Atrium, Percutaneous Approach Insertion of Defibrillator Lead into Right Atrium, Percutaneous Approach [facility]: 67-24-1005Uafebnmcb of Defibrillator Lead into Right Ventricle, Percutaneous ApproachInsertion of Defibrillator Lead into Right Ventricle, Percutaneous ApproachGerman Hospital Start: 05-29-4761DgwvpyawoUC Medical Centertart: 55-24-9634McubhigylUC Medical Centertart: 69-30-9999Zoaangzj to gastroenterologistUC Medical Centertart: 40-74-4972Quxjonml admissionUC Medical Centertart: 26-05-2881GY cervical spine without contrastCT cervical spine wo [facility]ertart: 94-60-1382YX Cervical spine WO contrastUC Medical Centertart: 04-28-9160SP of head without contrastCT head/brain wo [facility] Centertart: 20-92-9370RJ Unspecified body region WO [facility] Hospitaltart: 06-99-8210Xdpbp chest X-rayXR chest 1V portableGerman Hospital Start: 85-70-3732ZL Chest Single viewUC Medical Centertart: 96-69-0848Ymroigd Bleeding in Gastrointestinal Tract, Via Natural or Artificial Opening EndoscopicControl Bleeding in Gastrointestinal Tract, Via Natural or Artificial Opening EndoscopicGerman Hospital CenterStart: 11-11-2023 [facility] CenterStart: 89-94-0425EjtyopkmdGerman Hospital CenterStart: 35-48-5637Iwsxgpmh to rehabilitation physicianUC Medical Centertart: 78-63-6904Ppwsfixm admissionUC Medical Centertart: 59-65-3465UslkzokxkbwmQkggjnzmgUC Medical Centertart: 57-76-3123Bwjkokws to gastroenterEast Liverpool City Hospitaltart: 81-93-8667Ythbntr Bleeding in Gastrointestinal Tract, Via Natural or Artificial Opening EndoscopicControl Bleeding in Gastrointestinal Tract, Via Natural or Artificial Opening EndoscopicUC Medical Centertart: 08-31-2023 Excision of Esophagus, Via Natural or Artificial Opening Endoscopic, Diagnostic Excision of Esophagus, Via Natural or Artificial Opening Endoscopic, Diagnostic [facility]: 90-40-6708Cvtldyil of Stomach, Pylorus, Via Natural or Artificial Opening Endoscopic, DiagnosticExcision of Stomach, Pylorus, Via Natural or Artificial Opening Endoscopic, DiagnosticUC Medical Centertart: 08-16-2023 End: 05-93-6253Mpyms metabolic 2000 panel - Serum or PlasmaBasic Metabolic Panel Lab Routine Cardiomyopathy, ischemic Expected: 08/16/2023 (Approximate), Expir es: 08/16/2024[facility] Work Phone: Comment on above:Expected: 08/16/2023 (Approximate), Expires: 08/16/2024Start: 08-16-2023 End: 21-34-6112Fiudmqzwrym peptide B [Mass/volume] in BloodB-Type Natriuretic Peptide Lab Routine Cardiomyopathy, ischemic Orthopnea Expected: 08/16/2023 (Approximate), Expires: 08/16/2024[facility] Service Area Work Phone: Comment on above:Expected: 08/16/2023 (Approximate), Expires: 08/16/2024Start: 07-16-2023 End: 64-43-2937ElgsazrnqUC Medical Centertart: 59-90-6479BGIPF-19 Vaccine (3 - Moderna series)COVID-19 Vaccine (3 - Moderna series)[facility] CenterStart: 02-77-3898Aystymr Directive DiscussionAdvance Directive DiscussionAshtabula General Hospitaltart: 06-23-2023 End: 42-48-6145Ftfuotv encounter zobnqfpwu29/13/2023 2:00 PM EST Office Visit [facility] [address] [facility] [address] [place] [address] Sammy [place], DOCUMENTATION ENGINEER-SENIOR ELECTRONICS TECHNICIAN [address] [facility] [address] [place] [address] [facility] CenterStart: 14-71-8633Vsmew screening for protein Diabetes: Urine Protein ScreeningLake Regional Health SystemStart: 15-84-9096HvhpytxwiGerman Hospital CenterStart: 59-35-9382Bblvgwhmwrzhqw of prophylactic treatment [facility] CenterStart: 85-37-1124Tckrehty admissionGerman Hospital CenterStart: 07-96-7592Asgklhap to clinical allergistGerman Hospital CenterStart: 08-65-5309UzpdxzgjaGerman Hospital CenterStart: 35-38-2784Kiocnltd to rehabilitation physicianGerman Hospital Start: 92-29-0057Uxbxy chemistryGerman Hospital CenterStart: 55-58-2618LsdechszaGerman Hospital CenterStart: 06-00-4745Edfiv chemistry [facility] CenterStart: 77-58-3108OsnahyjhsGerman Hospital CenterStart: 75-24-4483Jorwwtgl to Social ServicesUC Medical Centertart: 33-59-9847Ofgqc chemistryGerman Hospital CenterStart: 04-30-2023 End: 08-80-2124GkbixwrthGerman Hospital CenterStart: 10-19-2023Medicare Annual Wellness (AWV)Medicare Annual Wellness (AWV)[facility] HealthcareStart: 04-29-2023 Blood chemistryGerman Hospital CenterStart: 18-88-7203Fhzkk panel [facility] CenterStart: 33-08-3132MsyfsaaxaUC Medical Centertart: 87-02-1212FgmmzlddnGerman Hospital CenterStart: 04-28-2023 Hospital admissionGerman Hospital CenterStart: 23-42-2740MtbaelrbeGerman Hospital CenterStart: 38-25-0405Madhvvtc admissionGerman Hospital CenterStart: 53-20-5225IqjpylaykjybScrkszfkiGerman Hospital Start: 29-96-5586Oxfgoxfv to cardiologistGerman Hospital CenterStart: 04-28-2023 End: 49-19-4787HengbtbikGerman Hospital CenterStart: 16-40-7170Prsxjksxlfw of Left Heart using Low Osmolar ContrastFluoroscopy of Left Heart using Low Osmolar ContrastUC Medical Centertart: 49-75-2146Pflwciwzpze of Multiple Coronary Arteries using Low Osmolar ContrastFluoroscopy of Multiple Coronary Arteries using Low Osmolar ContrastGerman Hospital Start: 77-43-3749Jrnjcekal of Intramedullary Internal Fixation Device into Right Upper Femur, Percutaneous ApproachInsertion of Intramedullary Internal Fixation Device into Right Upper Femur, Percutaneous ApproachUC Medical Centertart: 07-24-9488Orukqpqeidw of Cardiac Sampling and Pressure, Left Heart, Percutaneous ApproachMeasurement of Cardiac Sampling and Pressure, Left Heart, Percutaneous ApproachUC Medical Centertart: 04-04-2022 Hemoglobin A1c measurementDiabetes: Hemoglobin C0JUibzkbnjibZanesville City Hospital: 50-71-6289Ttoezawc vaccine (2 of 2)Shingles vaccine (2 of 2)[facility]: 88-86-2129SMKKJ-19 Vaccine (3 - Booster for Moderna series)COVID-19 Vaccine (3 - Booster for Moderna series)[facility] Start: 41-20-3390Aspxlodahxtwg B Vaccine (3 of 4 - Increased Risk Bexsero 2-dose series)Meningococcal B Vaccine (3 of 4 - Increased Risk Bexsero 2-dose series) [facility]: 58-91-8706Pywfvtqdwxjgh B Vaccine (3 of 4 - Increased Risk Bexsero 3-dose series)Meningococcal B Vaccine (3 of 4 - Increased Risk Bexsero 3-dose series)[facility]: [facility] DTaP/Tdap/Td Vaccines (3 - Td or Tdap)DTaP/Tdap/Td Vaccines (3 - Td or Tdap)[facility] SystemStart: 09-01-2002Medicare Annual Wellness VisitMedicare Annual Wellness VisitAshtabula General Hospitaltart: 53-83-2824Brigf screening for protein Diabetes: Urine Protein ScreeningZanesville City Hospital: 01-90-3311Kwohfdu ScreeningAnxiety ScreeningAshtabula General Hospitaltart: 1955 Depression ScreeningDepression ScreeningSumma Health Akron Campusrt: 1955 Hepatitis B surface antibody levelLDL CholesterolAshtabula General Hospitaltart: 47-65-5443Ollvefhdsm ScreenDepression ScreenBON [facility] Centerart: 09-03-1558Rgmeeoqw foot examinationZanesville City Hospital: 00-21-6579Pkstwblu screeningZanesville City Hospital: 1947 Hepatitis B screeningUrine Albumin:Creatinine RatioKettering Health Main Campus: 63-38-1611Aqsessqcaigsl B Vaccine (1 of 4 - Increased Risk)Meningococcal B Vaccine (1 of 4 - Increased Risk)[facility]: 68-56-3189Uffwdmmwgrppa Vaccine (1 - Risk 2-dose series)Meningococcal Vaccine (1 - Risk 2-dose series)[facility]: 24-53-5559UDW Vaccines (1 of 1 - Risk 1-dose series)HIB Vaccines (1 of 1 - Risk 1-dose series) [facility]: 64-31-5820Rdmtgf Wellness Visit (AWV) Annual Wellness Visit (AWV)[facility]: 03-63-3208Xsaxv panel Lipid PanelUnOhioHealth Hardin Memorial Hospital: 1937Medicare Annual Wellness VisitMedicare Annual Wellness Visit (AWV)[facility]: 83-28-4967Xqhcmozao for osteoporosisBone Density ScanUnMercy Health St. Joseph Warren HospitalAEROBIC CULTUREAEROBIC CULTURE Lab Routine 06/20/2024 10:18 AM [facility] [employer] Work Phone: ANAEROBIC CULTUREANAEROBIC CULTURE Lab Routine 06/20/2024 10:18 AM [facility] Met[facility] Panel w/ Reflex to MGBasic Metabolic Panel w/ Reflex to MG Lab Routine Daily until discontinued starting 01/06/2022, 2 [facility] [place] Phone: comment on above:Daily until discontinued starting 01/06/2022, 2 completedCBC W Auto Differential panel - BloodCBC with Auto Differential Lab Routine Daily until discontinued starting 01/03/2022, 5 [facility] [place] Phone: comment on above:Daily until discontinued starting 01/03/2022, 5 completedComprehensive metabolic 2000 panel - Serum or Plasma [facility] HospitalGlucose [Mass/volume] in Serum or PlasmaPOCT Glucose Point of Care Testing STAT As Needed until discontinued starting 01/02/2022[facility] [employer] [place] Phone: comment on above:As Needed until discontinued starting 01/02/2022Glucose [Mass/volume] in Serum or PlasmaPOCT glucose Point of Care Testing Routine Now Then Every 4hr until discontinued starting 01/03/2022 [employer] Phone: comment on above:Now Then Every 4hr until discontinued starting 01/03/2022Glucose [Mass/volume] in Serum or PlasmaGLUCOSE, BLOOD (POC) Lab Routine 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, with long-term current use of insulin (HCC) [facility]: Comment on above:Ordered: 07/06/2024Glucose measurement estimated from glycated hemoglobinGerman Hospital Helicobacter pylori Ag [Presence] in Stool by ImmunoassayGerman HospitalOxygen therapy [Minimum Data Set]Initiate Oxygen Therapy Protocol Respiratory Care Routine As Needed until discontinued starting 01/02/2022 [employer] Phone: comment on above:As Needed until discontinued starting 01/02/2022atient [facility] Work Phone: Patient referralGerman Hospital Ctr Work Phone: Phosphate [Mass/volume] in Serum or PlasmaPhosphorus Lab Routine Daily until discontinued starting 01/06/2022, 2 completedBON [facility] Work Phone: comxxmf on above:Daily until discontinued starting 01/06/2022, 2 completedSpirometry panelIncentive spirometry Respiratory Care Routine Every 2hr while awake until discontinued starting 01/03/2022 [employer] Phone: compjwt on above:Every 2hr while awake until discontinued starting 01/03/2022US Heart TransthoracicGerman HospitalUS Heart TransthoracicGerman HospitalXR Cervical spine 3 [facility]Wis[facility] Immunizations Immunization DateImmunizationNotesCare LbsrdpiiXhdewnir49-91-6392tnxzmskcm, high dose seasonal, preservative-freeGeneric ProviderLake Regional Health SystemLkywowmdki25-78-7370 Seasonal trivalent influenza vaccine, adjuvanted, preservative freeYuerong Cally HOSPITAL CHIEF EXECUTIVE OFFICER Work Phone: [facility] SystemHqpdvlveoe44-16-2262yfnybvhap virus vaccine, unspecified formulationMarie Ileana DO Work Phone: [facility] SystemIpqccwvyem80-79-6919Kntuwotoy, Seasonal, Quadrivalent, AdjuvantedYuerong Cally HOSPITAL CHIEF EXECUTIVE OFFICER Work Phone: [facility] SystemQeagexnxhp80-80-1771DFLSY-38 (PFIZER) 12Y and olderDO Marie Tejeda Work Phone: [facility]11-07-2023Moderna SARS-CoV-2 VaccinationYuerong Cally HOSPITAL CHIEF EXECUTIVE OFFICER Work Phone: [facility] SystemJvpnrhbere72-10-0442TFK, recombinant, protein subunit RSVpreF, adjuvant reconstitu, 120mcg/0.5mL, PF (Arexvy)Yuerong Cally HOSPITAL CHIEF EXECUTIVE OFFICER Work Phone: [facility] SystemDkhuxyjtgo88-88-7162ztvole vaccine recombinant Yuerong Cally HOSPITAL CHIEF EXECUTIVE OFFICER Work Phone: [facility] SystemRfejaqeajz42-18-9593SKMSD-05 mRNA Bivalent Booster (Pfizer)DO Marie Tejeda Work Phone: [facility]11-15-2022Moderna Bivalent Booster VaccinationYuerong Cally HOSPITAL CHIEF EXECUTIVE OFFICER Work Phone: [facility] SystemUhxynmnydn18-13-0199blzfgtphp, high dose seasonal, preservative-freeYuerong Cally HOSPITAL CHIEF EXECUTIVE OFFICER Work Phone: [facility] SystemQmguifnjhx21-22-3831mxpklq vaccine, liveYuerong Cally HOSPITAL CHIEF EXECUTIVE OFFICER Work Phone: [facility] SystemLorgmbqtil63-39-6890cjjnjc vaccine recombinant Yuerong Cally HOSPITAL CHIEF EXECUTIVE OFFICER Work Phone: [facility] SystemJodpgrsjkz14-41-3212pdgswlocd, high dose seasonal, preservative-freeYuerong Cally HOSPITAL CHIEF EXECUTIVE OFFICER Work Phone: [facility] SystemVtrnwruxzf61-64-9911Skemktw SARS-CoV-2 VaccinationYuerong Cally HOSPITAL CHIEF EXECUTIVE OFFICER Work Phone: [facility] SystemLmxdfuaiyv39-67-0350Kpebptk SARS-CoV-2 VaccinationYuerong Cally HOSPITAL CHIEF EXECUTIVE OFFICER Work Phone: [facility] SystemXsiccphlqs84-49-9809Rcitnbur trivalent influenza vaccine, adjuvanted, preservative freeYuerong Cally HOSPITAL CHIEF EXECUTIVE OFFICER Work Phone: [facility] SystemYzrlrzxdsz73-76-5437slwktgyvoigx conjugate vaccine, 13 valentYuerong Cally HOSPITAL CHIEF EXECUTIVE OFFICER Work Phone: [facility] SystemYfyyokokbh85-73-8440onzqjjcexjbxn B vaccine, recombinant, OMV, adjuvantedRobert Vasohiohealth [facility] hospitalk DO Work Phone: noGolden Valley Memorial HospitalMgzwppuvvg86-73-8916igacyqlhxpthu polysaccharide (groups A, C, Y and W-135) diphtheria toxoid conjugate vaccine (MCV4P)[facility] DO Work Phone: [facility] SystemHkhcselrsv51-63-3542ppmgikelplry polysaccharide vaccine, 23 valentRobert Vasoh[facility] hospitalk DO Work Phone: [facility] SystemKniuoagrxo57-80-7335Ffiasahq trivalent influenza vaccine, adjuvanted, preservative freeYuerong Cally HOSPITAL CHIEF EXECUTIVE OFFICER Work Phone: [facility] SystemAdslrwwvte40-43-3590xmaytcqnbsj influenzae type b vaccine, PRP-OMP conjugateRobert Vas[facility] hospitalk DO Work Phone: [facility] SystemIylydrisjq36-73-0466wweazqelzytex B vaccine, recombinant, OMV, adjuvantedRobert Vaschak DO Work Phone: [facility] SystemGoxayjppca17-14-6997bnuejvmqhuky conjugate vaccine, 13 valentRobert Vaschak DO Work Phone: [facility] SystemYqjjwvtgxl55-66-7665Afaijuik trivalent influenza vaccine, adjuvanted, preservative freeYuerong Cally HOSPITAL CHIEF EXECUTIVE OFFICER Work Phone: [place] [address]Ltwuuyepyh49-20-8574mxdbmex and diphtheria toxoids, adsorbed, preservative free, for adult use (5 Lf of tetanus toxoid and 2 Lf of diphtheria toxoid)Anatoly Anne HOSPITAL CHIEF EXECUTIVE OFFICER Work Phone: [facility] SystemZefagmtdim56-53-7551eabxgqnar, high dose seasonal, preservative-freeAnatoly Cally HOSPITAL CHIEF EXECUTIVE OFFICER Work Phone: [facility] SystemLkzzigjber66-18-9689xftvorcpjmui polysaccharide vaccine, 23 valentYleonarda Cally HOSPITAL CHIEF EXECUTIVE OFFICER Work Phone: [facility] SystemVsqwqgtazi12-32-3326oeroxea toxoid, reduced diphtheria toxoid, and acellular pertussis vaccine, adsorbedAnatoly MiniBanda.ru HOSPITAL CHIEF EXECUTIVE OFFICER Work Phone: [facility] Payers DatePayer CategoryOhyerOss Health [id number]-uui [id number] Health Insurance1.2.840.746442.1.13.693.2.7.9.182751.161259. Medicare1.2.840.267984.1.13.647.2.7.3.6708[id number] 1.2.840.555039.1.13.239.2.7.3.90944[id number] 1.2.840.060532.1.13.239.2.7.3.754[id number] 2.16.840.1.608145.3.579.2.27921-53-0793Sbgkeph0608790 2.16.840.1.680699.3.579.2.40683-74-2304Uguthbb7179397 2.16.840.1.173086.3.579.2.11045-43-7663Dtormio7269917 2.16.840.1.212126.3.579.2.19777-42-8198Jmclugt032796416 2.16.840.1.318990.3.579.2.75393-68-3652Gabnxrf15387102 2.16.840.1.370797.3.579.2.296843-66-1644Vytgprf50223455 2.16.840.1.779959.3.579.2.324914-21-5360Xhksymu84259116 2.16.840.1.315539.3.579.2.007549-26-3207Wczyfqh38232515 2.16.840.1.401761.3.579.2.59883-38-7636Dqomxzx08991625 2.16.840.1.805019.3.579.2.17968-92-8542Itxpwis91539670 2.16.840.1.052059.3.579.2.81136-79-7403Oqppltu76330935 2.16.840.1.831380.3.579.2.375993-63-4943Tybfwtn80891228 2.16.840.1.624511.3.579.2.316528-34-5775Hskpgaw90918844 2.16.840.1.148672.3.579.2.963474-11-5775Wllcfqg85079835 2.16.840.1.472053.3.579.2.560167-78-2760Uygyqrp04863611 2.16.840.1.781033.3.579.2.246356-23-2799Ekwxxoq93778143 2.16.840.1.399125.3.579.2.625365-41-9428Xljwmla4756165 2.840.1.044058.3.579.2.757728-03-2800Cgpykkk9095424 2.0.1.394846.3.579.2.773348-07-0851Fbbcoyh5116030 2.840.1.436342.3.579.2.583778-41-8439Ulfwytv0227184 2.840.1.060021.3.579.2.181636-68-6262Qwigsun5507517 2.0.1.335049.3.579.2.213203-37-5412Tdxkhho3527851 2.0.1.095378.3.579.2.825628-37-8288Vfsikub61317385 2.0.1.119740.3.579.2.22384-55-3291Rnomhdm99570997 2.0.1.182564.3.579.2.39625-52-7147Oodqdpx59281284 2.0.1.691494.3.579.2.28857-67-6609Pagohat16948340 2.0.1.995359.3.579.2.22306-61-4441Hyhoiwl70108558 2.0.1.046286.3.579.2.17903-26-7636Vplqxcv53061583 2.0.1.367290.3.579.2.420GuyggyqGC3171917Zhfmqbc82978457 2.840.1.552820.3.579.2.674Mbvoxln16170143 2.840.1.452416.3.579.2.531 Kermxbc05142805 2.840.1.966775.3.579.2.790Pvngnzx18217117 2.16.840.1.089406.3.579.2.754Bndeapz55109491 2.16.840.1.917477.3.579.2.531 Uogtdaf37057127 2.16.840.1.681484.3.579.2.950Ydltdjr41552626 2.16.840.1.026738.3.579.2.660Ujkbtfq59234214 2.16.840.1.415534.3.579.2.531 Zwfwbsw17049359 2.16.840.1.236150.3.579.2.020Ahkhhbu20864570 2.16.840.1.401029.3.579.2.967Tqcyoxx05870123 2.16.840.1.707252.3.579.2.531 Social History DateTypeDetailFacilityStart: 01-04-2022 End: 92-68-6965Mnzrvht smoking status NHISEx-smokerdcBLOX Inc. Start: 07-12-1947 End: 37-63-4152Thsmyhz of tobacco useCigarette SmokerHAVASU REGIONAL [facility] [employer] Phone: start: 01-04-2022 End: 36-30-8785Dkwvtci use and exposureSmokeless tobacco non-userHAVASU REGIONAL MEDICAL CENTER [employer] Phone: start: 61-33-7820Rmfybms intakeEx-drinker (finding)[facility] [employer] Phone: start: 69-93-1158Kdv Assigned At BirthNot on fileHAVASU REGIONAL MEDICAL CENTER [employer] Phone: start: 12-24-2021 End: 76-00-7906Qvqwaaut to SARS-CoV-2 (event)Not sureHAVASU REGIONAL MEDICAL CENTER [facility] Start: 04-28-2023 End: 45-09-0577Duayzzo smoking status NHISCurrent some day smokerUC Medical Centertart: 77-67-8901Orj [facility]tart: 05-25-2023 End: 69-76-8785Qoc Assigned At [facility] [employer] Other Start: 05-25-2023 End: 98-45-9694Xidyfge intakeCurrent drinker of alcohol (finding)[facility] Work Phone: Start: 05-25-2023 End: 49-85-1011Vvorzqo intakeUnMercy Health St. [facility] Work Phone: Start: 07-12-1947 End: 77-48-0830Yladkna smoking status NHISSmoker (finding)[facility] HospitalHow often to you have a drink containing alcohol?2-4 times a month [facility] HealthcareHow many standard drinks containing alcohol do you have on a typical day?1 or 2NOMS HealthcareHow often do you have 6 or more drinks on 1 occasion?NeverNOTN HealthcareStart: 63-01-4223Ivfqitr CommentHas a history of cessation from smokin02/09/2018NOTN HealthcareStart: 11-22-2010 End: 53-09-5706TljKxcn (finding)[facility]ertart: 03-30-2018 End: 37-64-7206Vzqnfgpi Score (1-100), lower number is lower wams98Zujnsutae ClinicStart: 48-35-0398Dkgpzvw Commentsocial useAshtabula General Hospitaltart: 07-12-1947 End: 60-66-6162Rkkntkl smoking status NHISSmokes tobacco dailyNOTN Healthcare Tobacco smoking statusExecutive Urology of The [facility] Start: 80-56-8099Udwmfgl Commentcaffeine-1 cup per day [facility] Medical Equipment Procedure CodeEquipment CodeEquipment Original TextEquipment IdentifierDates ORIF, hipOrthopaedic bone screw, non-bioabsorbable, non-sterile ()[id number] FDAStart: 18-66-3328PRKD, hipFemur nail, sterile ()[id number] FDAStart: 97-29-0849HCYI, hipSpiral blade()[id number] FDAStart: 99-34-7494Vduzdwqlu, pacemakerEndocardial defibrillation lead ()[id number] FDAStart: 29-57-5557Uokkhwplz, pacemakerDual-chamber implantable defibrillator ()[id number] FDAStart: 80-55-1487Jvoplgfqk, pacemakerEndocardial/interventricular septal pacing lead ()[id number])[id number] FDAStart: 66-54-4839VZ STENT MARK FRONTIER 3.5 X 18FDAStart: 80-19-6697LL STENT MARK FRONTIER 3.5 X 18FDAStart: 00-11-9575OrudweaCcwod: 06-22-0955Rjv Needle, Diabetic (Bd Ultra-Fine Marichuy Pen Needle) 32 gauge x 5/32 needleStart: 88-08-7968SN STENT MARK FRONTIER 3.5 X 18 FDAStart: 60-97-5349YluqsvsNgkgb: 15-04-4536Aoj Needle, Diabetic (Bd Ultra-Fine Marichuy Pen Needle) 32 gauge x 5/32 needleStart: 80-41-7776EI STENT MARK FRONTIER 3.5 X 18FDAStart: 76-96-0142KheozylEhjes: 20-41-1353Kyg Needle, Diabetic (Bd Ultra-Fine Marichuy Pen Needle) 32 gauge x 5/32 needleStart: 17-91-5074UN STENT MARK FRONTIER 3.5 X 18FDAStart: 57-98-1738SenqpavZfvja: 24-11-7177Kea Needle, Diabetic (Bd Ultra-Fine Marichuy Pen Needle) 32 gauge x 5/32 needleStart: 73-47-5487MJ STENT MARK FRONTIER 3.5 X 18FDAStart: 61-24-2496NyvjzshIkxhw: 19-20-9335Pmg Needle, Diabetic (Bd Ultra-Fine Marichuy Pen Needle) 32 gauge x 5/32 needleStart: 38-22-1803QI STENT MARK FRONTIER 3.5 X 18FDAStart: 07-16-2023 LancetsStart: 35-66-0380Ccf Needle, Diabetic (Bd Ultra-Fine Marichuy Pen Needle) 32 gauge x 5/32 needleStart: 64-16-1877RG STENT MARK FRONTIER 3.5 X 18FDAStart: 30-47-0126ZiqwckrGiqun: 66-28-1675Gah Needle, Diabetic (Bd Ultra-Fine Marichuy Pen Needle) 32 gauge x 5/32 needleStart: 25-05-6290OQ STENT MARK FRONTIER 3.5 X 18 FDAStart: 66-88-9940BauvruwWqwgs: 77-62-5600Xcr Needle, Diabetic (Bd Ultra-Fine Marichuy Pen Needle) 32 gauge x 5/32 needleStart: 98-66-9605FU STENT MARK FRONTIER 3.5 X 18FDAStart: 14-07-1210BxltjmfBmwuk: 88-34-7029Mgs Needle, Diabetic (Bd Ultra-Fine Marichuy Pen Needle) 32 gauge x 5/32 needleStart: 34-64-5247XE STENT MARK FRONTIER 3.5 X 18FDAStart: 64-19-5303CozyrdtShvkj: 16-23-1996Riu Needle, Diabetic (Bd Ultra-Fine Marichuy Pen Needle) 32 gauge x 5/32 needleStart: 58-98-9858YH STENT MARK FRONTIER 3.5 X 18FDAStart: 10-16-8904NdfxtpqQmzrs: 82-13-8499Jgi Needle, Diabetic (Bd Ultra-Fine Marichuy Pen Needle) 32 gauge x 5/32 needleStart: 79-03-5687NL STENT MARK FRONTIER 3.5 X 18FDAStart: 07-16-2023 LancetsStart: 71-73-0419Jpy Needle, Diabetic (Bd Ultra-Fine Marihcuy Pen Needle) 32 gauge x 5/32 needleStart: 80-32-8675JH STENT MARK FRONTIER 3.5 X 18FDAStart: 26-71-1368JrqtbwkEibwo: 66-53-2699Ned Needle, Diabetic (Bd Ultra-Fine Marichuy Pen Needle) 32 gauge x 5/32 needleStart: 78-65-2240QI STENT MARK FRONTIER 3.5 X 18 FDAStart: 55-43-1521JapbcrrPqryh: 91-10-6194Gwc Needle, Diabetic (Bd Ultra-Fine Marichuy Pen Needle) 32 gauge x 5/32 needleStart: 37-38-5770CK STENT MARK FRONTIER 3.5 X 18FDAStart: 35-50-7989KixnakiDighe: 98-12-9502Unf Needle, Diabetic (Bd Ultra-Fine Marichuy Pen Needle) 32 gauge x 5/32 needleStart: 50-93-1254PG STENT MARK FRONTIER 3.5 X 18FDAStart: 18-51-0944UzkcrtrXwfvn: 97-45-8190Zkb Needle, Diabetic (Bd Ultra-Fine Marichuy Pen Needle) 32 gauge x 5/32 needleStart: 33-43-244900939162Jezxh: 28-76-8493PT STENT MARK FRONTIER 3.5 X 18FDAStart: 78-60-1866LcxldssQnqlz: 19-82-8976Ofq Needle, Diabetic (Bd Ultra-Fine Marichuy Pen Needle) 32 gauge x 5/32 needleStart: 64-72-1081DF STENT MARK FRONTIER 3.5 X 18 FDAStart: 05-91-4223IzjrookDekht: 65-92-0188Rtl Needle, Diabetic (Bd Ultra-Fine Marichuy Pen Needle) 32 gauge x 5/32 needleStart: 24-31-9534VC STENT MARK FRONTIER 3.5 X 18FDAStart: 63-23-8504GojkdjbCloob: 32-50-6018Yfa Needle, Diabetic (Bd Ultra-Fine Marichuy Pen Needle) 32 gauge x 5/32 needleStart: 75-85-1007HK STENT MARK FRONTIER 3.5 X 18FDAStart: 37-09-0414GisdqlhJemau: 62-04-3259Geo Needle, Diabetic (Bd Ultra-Fine Marichuy Pen Needle) 32 gauge x 5/32 needleStart: 04-75-0495RT STENT MARK FRONTIER 3.5 X 18FDAStart: 76-13-2300PakqxtuOhhal: 85-62-9758Kgt Needle, Diabetic (Bd Ultra-Fine Marichuy Pen Needle) 32 gauge x 5/32 needleStart: 26-48-7151BY STENT MARK FRONTIER 3.5 X 18FDAStart: 73-27-2205Kqjtf Sugar Diagnostic stripStart: 87-78-9953Nkdvsla miscStart: 22-91-1513Eiv Needle, Diabetic (Bd Ultra-Fine Marichuy Pen Needle) 32 gauge x 5/32 needleStart: 85-00-7992UN STENT MARK FRONTIER 3.5 X 18FDAStart: 60-38-4919Vxgrv Sugar Diagnostic stripStart: 83-77-7649Lifocin miscStart: 15-43-6194Zff Needle, Diabetic (Bd Ultra-Fine Marichuy Pen Needle) 32 gauge x 5/32 needleStart: 92-24-2877LH STENT MARK FRONTIER 3.5 X 18FDAStart: 06-86-7382Dcono Sugar Diagnostic stripStart: 38-62-6110Aogimtl miscStart: 79-00-1964Ccr Needle, Diabetic (Bd Ultra-Fine Marichuy Pen Needle) 32 gauge x 5/32 needleStart: 12-25-7713CS STENT MARK FRONTIER 3.5 X 18FDAStart: 55-84-8676Qmhcx Sugar Diagnostic stripStart: 34-03-4300Jqdmzuw miscStart: 73-38-5333Rhf Needle, Diabetic (Bd Ultra-Fine Marichuy Pen Needle) 32 gauge x 5/32 needleStart: 41-41-1490KY STENT MARK FRONTIER 3.5 X 18FDAStart: 47-34-1103Ltdba Sugar Diagnostic stripStart: 29-96-2774Yhqxafm miscStart: 69-32-4618Hlk Needle, Diabetic (Bd Ultra-Fine Marichuy Pen Needle) 32 gauge x 5/32 needleStart: 31-80-3415Cgo with insulin once daily in case of pump akjmphh0233701500Nxytd: 05-35-9154XZ STENT MARK FRONTIER 3.5 X 18FDAStart: 56-90-3244Lnazj Sugar Diagnostic stripStart: 39-12-7881Gthapww miscStart: 15-39-7342Fnu Needle, Diabetic (Bd Ultra-Fine Marichuy Pen Needle) 32 gauge x 5/32 needleStart: 35-21-9687GN STENT MARK FRONTIER 3.5 X 18FDAStart: 40-56-1249Cejpr Sugar Diagnostic stripStart: 40-70-1738Ezvedip miscStart: 04-12-6384Nyq Needle, Diabetic (Bd Ultra-Fine Marichuy Pen Needle) 32 gauge x 5/32 needleStart: 41-26-0810NF STENT MARK FRONTIER 3.5 X 18FDAStart: 10-42-7243Ilgpi Sugar Diagnostic stripStart: 37-64-1095Rklocxc miscStart: 67-38-4137Xjx Needle, Diabetic (Bd Ultra-Fine Marichuy Pen Needle) 32 gauge x 5/32 needleStart: 08-94-3355VA STENT MARK FRONTIER 3.5 X 18FDAStart: 30-20-2179Qpqpu Sugar Diagnostic stripStart: 51-20-3560Xezsioz miscStart: 98-18-3139Qaq Needle, Diabetic (Bd Ultra-Fine Marichuy Pen Needle) 32 gauge x 5/32 needleStart: 95-94-3113QM STENT MARK FRONTIER 3.5 X 18FDAStart: 06-57-2601Nnocv Sugar Diagnostic stripStart: 63-01-1837Miouqdp miscStart: 96-26-0076Dsj Needle, Diabetic (Bd Ultra-Fine Marichuy Pen Needle) 32 gauge x 5/32 needleStart: 09-05-2023 Goals DatePatient GoalDesired Activity/State Functional Status HapmPcripfgeifRqvfvrKjryysmm44-95-7833Xlrbrooxzz statusPatient at [facility] Work Phone: [phone]xbq statusPatient at Baseline [facility] Work Phone: [phone]vp statusPatient is Progressing [facility] Work Phone: [phone]be statusPatient at Baseline [facility] Work Phone: [phone]et statusPatient at Baseline [facility] Work Phone: [phone] Health Questionnaire 2 item (PHQ-2) [Reported][facility] SystemKimghhlsdr82-54-1860Lcgxekkbrw statusPatient at [facility] Work Phone: [phone] statusPatient is Progressing [facility]ard [facility] Work Phone: [phone] statusPatient at Baseline [facility] Work Phone: [phone] Health Questionnaire 2 item (PHQ-2) [Reported][facility] SystemIkjzjvrjkc54-36-6633Zlkzymgovu statusPatient is Progressing [facility] Work Phone: [phone] statusPatient is Progressing [facility]ard [facility] Work Phone: [phone] statusPatient Not at Baseline [facility] Work Phone: Mental Status BhmxOlgmjwizexDvsiibLnonnink46-25-5650Wonxgtckz functionCognitive Status [facility] Work Phone: [phone] functionCognitive Status [facility] Work Phone: [phone] functionCognitive Status [facility] Work Phone: [phone] functionCognitive Status [facility] Work Phone: [phone] functionCognitive Status [facility] at [facility] Work Phone: [phone] functionCognitive Status [facility] Work Phone: [phone] functionCognitive Status [facility] Work Phone: [phone] functionCognitive Status [facility] Work Phone: [phone] functionCognitive Status Patient is Progressing Toward [facility] Work Phone: [phone] functionCognitive Status Patient is Progressing Toward [facility] Work Phone: [phone] functionCognitive Status Patient at [facility] Work Phone: Clinical Notes 01-07-2022 to 05-17-2025 Note Date & DzuvQcbjDjbfdwac04-36-7596 NoteED Patient Education Note Obstetrics and Gynecology [...] this condition includes: ??? Antibiotic medicine. ??? Knez-mio-htaxwtw medicines to treat discomfort. ??? Drinking enough [...] these instructions at home: Medicines ??? Take juws-fow-fbwvujf and prescription medicines only as told by [...] care provider. Make marcus (more content not included)...[facility]10-23-2025 NoteHNO ID: [id number] Author: AYANA ZAVALA APRN.SENIOR ELECTRONICS TECHNICIAN Service: ? Author Type: Nurse Practitioner Type: Progress Notes Filed: 05/03/2025 12:25 Note Text: Endocrinology Follow Up History of Present Illness Manolo Roche is a 89 year old male presents today for follow up of DM Type 1. Here with . At 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 Per patient, this was done due to [...] Dosage Pharm Subclass aspirin, (more content not included)...[facility]10-23-2025 Note HNO ID: [id number] Author: MIGUEL A GOODWIN MA Service: ? Author Type: Product Demonstrator Type: Procedures Filed: 05/03/2025 12:25 Note Text:[facility]10-10-2025 Hospital Discharge instructions Follow Up Care 04/20/2025 10:32:21 With:JULIO OGLESBY, Tristan Interiano, URL Address: [address] [place], [place] [id number] When: Unknown Comments:Pending Cysto/bladder function testing [facility] Manuel 09-29-2025 NoteHNO ID: [id number] Author: AYANA ZAVALA APRN.SENIOR ELECTRONICS TECHNICIAN Service: ? Author Type: Nurse Practitioner Type: Progress Notes Filed: 04/10/2025 08:17 Note Text: Endocrinology Follow Up History of Present Illness Manolo Roche is a 89 year old male presents today for follow up of DM Type 1. Here with . At [facility] 10/2024, basal rate was reduced overnight. [...] or vomiting. 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 Labwork from this AM is pending. recalls he is not bolusing consistently and will ignore his Omnipod alarms at times. Patient recalls being consistent with his Novolog and Lantus injections when he was on these. 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 Per patient, this was done due to [...] OTHER Medication Dosage Pharm Subclass Blood-Glucose Sensor (Festicket G7 SENSOR) delfin Change every 10 days. [...] needed. Agents to treat Hypoglycemia (Hyperglycemics) Insulin Carolina, Disposable, (BD ULTRA-FINE MARICHUY PEN NEEDLE) 32 gauge x 5/32 Use with insulin once daily in case of pump failure Medical Supplies and DME - Insulin Carolina-Syringes and Admin Supplies insulin pump cart,auto,B (more content not included)...[facility]09-16-2025 Evaluation note* Diagnosis Onset Date Resolution Status Admit Date Ischemic cardiomyopathy acuteSeptember 2024 9:54amType 1 diabetes mellitusacuteSeptember 2024 9:54amAcute GI bleedingresolvedSept2024 9:54amCoronary artery disease involving muckleshoot coronary artery of muckleshoot heart wiinactiveSept2024 9:54amHypertensioninactiveSeptember 2024 9:54amS/P PTCA (percutaneous transluminal coronary angioplasty)inactiveSept2024 9:54amH pylori ulceracuteOctober 2024 10:11amIron deficiencyacuteOctober 2024 10:11amIschemic cardiomyopathyacuteOctober 2024 10:11amType 1 diabetes mellitusacuteOctober 2024 10:11amAcute GI bleedingresolvedOctober 2024 10:11amNon-ST elevation myocardial infarction (NSTEMI), subendocardial infarction,resolvedOctober 2024 10:11amCoronary artery disease involving muckleshoot coronary artery of muckleshoot heart wiinactiveOctober 2024 10:11amHypertensioninactiveOctober 2024 10:11amS/P PTCA (percutaneous transluminal coronary angioplasty)inactiveOctober 2024 10:11am [facility] Work Phone: 1(360) 532-966707-29-2025 Telephone encounter Note* Telephone Encounter - Ayana Zavala APRN.CNP - 02/06/2025 11:55 AM EDT Please fax labs to [facility]. See other encounter- Medicare is requiring documentation of his insulin level in order to cover his insulin under Part B. Please notify patient BG needs to be under 225 mg/dL in the AM in order for insulin level to be accurate. [facility]07-29-2025 Miscellaneous Notes* Telephone Encounter - Ayana Zavala APRN.CNP - 02/06/2025 11:55 AM EDT Please fax labs to [facility]. See other encounter- Medicare is requiring documentation of his insulin level in order to cover his insulin under Part B. Please notify patient BG needs to be under 225 mg/dL in the AM in order for insulin level to be accurate. documented in this encounterUniversity Hospitals [facility]07-28-2025 Telephone encounter Note * Telephone [...] for this to be an accurate reading. [facility]07-28-2025 Miscellaneous Notes* Telephone Encounter - [...] be an accurate reading. 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 [facility] [place] VASECTOMY 1989 SOCIAL HISTORY: Social [...] Depression - At risk (01/21/2024) Received from [employer] PHQ-2 Total Score: 3 FAMILY HISTORY: Family [...] (PRILOSEC) 20 mg, Daily before breakfast pancrelipase, Leu-Eocs-Avdb, (Creon) 84183-18875 units capsule TAKE 2 CAPSULES BY MOUTH [...] 2. End-stage heart failure. - Classified as [place] Heart Association Class III/IV, indicating severe heart [...] and monitoring are necessary. documented in this encounterLake Regional Health [id number] Instructions* Patient Instructions* Selma Wilcox LPN - 01/02/2025 11:30 AM EDT ?? ATTENTION: Vascular Closure Policy Update - Effective 12/13/24 Beginning today, our nursing team will review Vascular Closure messages twice daily and help determine the [...] a brief office visit, if handled via Vascular Closure. We want you to feel informed and confident when using Vascular Closure, so here are a few examples to [...] us in your health! documented in this encounterLake Regional Health [id number] Telephone encounter Note* Telephone Encounter - Erick Peguero LPN - 12/27/2024 5:54 PM EDT Spoke to patient's . The sensors are ready for moss picker at pharmacy. She will let us know whereshe would like the refills sent when they are ready, nothing further for now. [facility]06-18-2025 Miscellaneous Notes* Telephone Encounter - Erick Peguero LPN - 12/27/2024 5:54 PM EDT Spoke to patient's . The sensors are ready for moss picker at pharmacy. She will let us know whereshe would like the refills sent when they are ready, nothing further for now. * Telephone Encounter - Ayana Zavala APRN.CNP - 12/27/2024 9:53 AM EDT Please call [facility] to inquire what is needed from the office. documented in this encounterUniversity Hospitals Portage Medical Center06-18-2025 Telephone encounter Note * Telephone Encounter - Ayana Zavala APRN.CNP - 12/27/2024 9:53 AM EDT Please call [facility] to inquire what is needed from the office. [facility]06-16-2025 Telephone encounter Note* Telephone Encounter - Ayana Zavala APRN.CNP - 12/25/2024 8:03 AM EDT Rx sent however patient obtains typically from [facility], are they still having issues obtaining from there? [facility]06-16-2025 Miscellaneous Notes* Telephone Encounter - Ayana Zavala APRN.CNP - 12/25/2024 8:03 AM EDT Rx sent however patient obtains typically from [facility], are they still having issues obtaining from there? * Telephone Encounter - Sharonda Felipe - 12/19/2024 12:04 PM EDT Pt needs refill on sensors. Do not see on current med list. [facility]. Insurance is not going to pay for this until 01/03. Spouse is requesting to speak to a nurse about getting an alternative until then. Please review and advise. Patient has been identified by name and birthdate. Duration of symptoms: N/A Person calling: self Call patient at: on cell [phone] (cell) Was an appointment scheduled: No Closing statement: Results or non-symptom based questions: Thank you for calling [facility], your call will be returned within the next business day. Sharonda Kay documented in this encounterUniversity Hospitals Portage Medical Center06-10-2025 Telephone encounter Note * Telephone Encounter - Sharonda Felipe - 12/19/2024 12:04 PM EDT Pt needs refill on sensors. Do not see on current med list. [facility]. Insurance is not going to pay for this until 01/03. Spouse is requesting to speak to a nurse about getting an alternative until then. Please review and advise. Patient has been identified by name and birthdate. Duration of symptoms: N/A Person calling: self Call patient at: on cell [phone] (cell) Was an appointment scheduled: No Closing statement: Results or non-symptom based questions: Thank you for calling [facility], your call will be returned within the next business day. Sharonda Kay [facility]06-03-2025 Telephone encounter Note* Telephone Encounter [...] Steven Patrick December 12, 2024 3:37 PM [facility]06-03-2025 Miscellaneous Notes* Telephone Encounter - [...] 12, 2024 3:37 PM documented in this encounterUniversity Hospitals Portage Medical Center04-23-2025 Telephone encounter Note * Telephone Encounter - Ayana Zavala APRN.CNP - 11/01/2024 11:59 AM EDT Please call pharmacy to inquire which insulin is covered or what they need prescription to say- do they need it sent as brand Novolog? [facility]04-23-2025 Miscellaneous Notes* Telephone Encounter - Ayana Zavala APRN.CNP - 11/01/2024 11:59 AM EDT Please call pharmacy to inquire which insulin is covered or what they need prescription to say- do they need it sent as brand Novolog? documented in this encounterUniversity Hospitals Portage Medical Center04-17-2025 Instructions* Patient Instructions* Ayana Zavala APRN.CNP - 10/26/2024 12:38 PM EDT Plan Basal 12am 0.4 8am 0.5 ICR 12am 15 ISF 12am 60 BG Correction Threshold 12am 150 BG Target 12am 150 Recommend discontinuing Farxiga due to risk of euglycemic diabetic ketoacidosis- discussed with PCP/ truss maker BACKUP INSULIN PLAN: Only use this if [...] up in 8 weeks documented in this encounterUniversity Hospitals Portage Medical Center04-17-2025 NoteHNO ID: [id number] Author: AYANA ZAVALA APRN.CNP Service: ? Author Type: Nurse Practitioner Type: Progress Notes Filed: 10/26/2024 13:11 Note Text: Endocrinology Follow Up History of Present Illness Manolo Roche is a 89 year old male presents today for follow up of DM Type 1. Here with . At 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 Per patient, this was done due to [...] needed. Agents to treat Hypoglycemia (Hyperglycemics) Insulin Carolina, Disposable, (BD ULTRA-FINE MARICHUY PEN NEEDLE) 32 gauge x 5/32 Use with insulin once daily in case of pump failure Medical Supplies and DME - Insulin Carolina-Syringes and Admin Supp (more content not included)...[facility]04-17-2025 History of Present illness Narrative* Ayana Zavala, AMADA.SENIOR ELECTRONICS TECHNICIAN - 10/26/2024 12:05 PM EDT Endocrinology Follow Up History of Present Illness Manolo Roche is a 89 year old male presents today for follow up of DM Type 1. Here with . At 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 Per patient, this was done due to [...] needed. Agents to treat Hypoglycemia (Hyperglycemics) Insulin Carolina, Disposable, (BD ULTRA-FINE MARICHUY PEN NEEDLE) 32 gauge x 5/32 Use with insulin oncedaily in case of pump failure Medical Supplies and DME - Insulin Carolina-Syringes and Admin Supplies insulin pump cart,auto,BT,G6/7 (OMNIPOD 5 G6-G7 PODS, GEN 5,) crtg Change every 72 hours. Medical Supply, FDB Superset Lactobac no.41/Bifidobact no.7 (PROBIOTIC-10 ORAL) Take by mouth once daily. Intestinal Chayo Modifiers axleab-vhvkiyfa-ifzisge (CREON) 24,000-76,000 -120,000 unit cpDR Take 2 capsules by mouth three times daily with meals. and 1 with snacks (8/day) Digestive Enzyme Mixtures lutein-zeaxanthin 25-5 mg cap Take by mouth once daily. Alternative Therapy - Antioxidant Omeprazole Magnesium 20 mg tablet Take 20 mg by mouth. Gastric Acid Secretion Storage Center Manager - Proton PumpInhibitors (PPIs) PARoxetine (PAXIL) 40 mg tablet Take 40 mg by mouth every morning. Antidepressant - Selective Serotonin Reuptake Inhibitors (SSRIs) tamsulosin (FLOMAX) 0.4 mg Take 0.4 mg by mouth. Prostatic Hypertrophy Agent - kujel-5-GdeajjyomrozYovmhwquuib Physical Activity: No formal program Diet: CHO [...] Advised to discuss further with PCP / truss maker, but from our standpoint he would be [...] Recommend discontinuing Farxiga- discussed with PCP / truss maker BACKUP INSULIN PLAN: Only use this if [...] time of the patient encounter Ayana Zavala APRN.SENIOR ELECTRONICS TECHNICIAN (Signed electronically to expedite mailing) documented in this encounterUniversity Hospitals Portage Medical Center04-04-2025 Evaluation note* Diagnosis Onset Date Resolution Status Admit Date Ischemic cardiomyopathy acuteApril 2024 9:10amType 1 diabetes mellitusacuteApril 2024 9:10am Acute GI bleedingresolvedApril 2024 9:10amCoronary artery disease involving muckleshoot coronary artery of muckleshoot heart wiinactiveApril 2024 9:10am HypertensioninactiveApril 2024 9:10amS/P PTCA (percutaneous transluminal coronary angioplasty)inactiveApril 2024 9:10am [facility] Work Phone: 1(577) 985-211304-02-2025 Telephone encounter Note* Telephone Encounter - Gaye Mata RN - 10/11/2024 4:17 PM EDT Patient's sent message patient had received Dexcom G7 CGM sensors from [employer] lastnight. Patient applied Omnipod 6 insulin pump [...] and CGM in the next few days. [facility]04-02-2025 Miscellaneous Notes* Telephone Encounter - Gaye Mata RN - 10/11/2024 4:17 PM EDT Patient's sent message patient had received Dexcom G7 CGM sensors from [employer] lastnight. Patient applied Omnipod 6 insulin pump [...] the next few days. documented in this encounterUniversity Hospitals Portage Medical Center04-02-2025 Miscellaneous Notes* Telephone Encounter - Gaye Mata RN - 10/11/2024 4:00 PM EDT [facility] for pt to return call. Patient appears to now be connected to the sensor. Advised how to treat hypoglycemia. Recommended see educator for appt to review pump and sensor operation documented in this encounterUniversity Hospitals Portage Medical Center04-02-2025 Telephone encounter Note * Telephone Encounter - Gaye Mata RN - 10/11/2024 4:00 PM EDT [facility] for pt to return call. Patient appears to now be connected to the sensor. Advised how to treat hypoglycemia. Recommended see educator for appt to review pump and sensor operation [facility]04-02-2025 Telephone encounter Note* Telephone Encounter - Ruchi Rhoades - 10/11/2024 11:37 AM EDT Images from the original note were not included. [facility]04-02-2025 Miscellaneous Notes* Telephone Encounter - [...] Waiting for determination [facility] Prior Overhead Distribution Engineer Endocrinology and Metabolism [place] * Telephone Encounter - Ayana Zavala APRN.CNP - 10/11/2024 8:07 AM EDT Received notice from pharmacy PA is request for Ominpod 5 pods. Please complete. documented in this encounterUniversity Hospitals Portage Medical Center04-02-2025 Telephone encounter Note * Telephone Encounter - Ruchi Rhoades - 10/11/2024 11:31 AM EDT Images from the original note were not included. Initiated PA for insulin pump cart,auto,BT,G6/7 (OMNIPOD 5 G6-G7 PODS, GEN 5,) crtg through [employer] Medicare Chart notes attached Questions Completed Waiting for determination Ruchi Prior Overhead Distribution Engineer Endocrinology and Metabolism [place] [facility]04-02-2025 Telephone encounter Note* Telephone Encounter - Ayana Zavala APRN.CNP - 10/11/2024 8:07 AM EDT Received notice from pharmacy PA is request for Ominpod 5 pods. Please complete. [facility]04-02-2025 Telephone encounter Note* Telephone Encounter - Ayana Zavala APRN.CNP - 10/11/2024 8:06 AM EDT Will send PA request in other encounter to PA team. [facility]04-02-2025 Miscellaneous Notes* Telephone Encounter - Ayana Zavala APRN.CNP - 10/11/2024 8:06 AM EDT Will send PA request in other encounter to PA team. documented in this encounterUniversity Hospitals Portage Medical Center04-01-2025 Telephone encounter Note * Telephone Encounter - Erick Peguero LPN - 10/10/2024 3:28 PM EDT Spoke to [facility], he reported that the Dexcom supplies should be delivered today vis [employer]. Tracking nbr [id number]. According to his notes it was out for delivery at 5:48 am 10/10/2024. I attempted to reach patient at both nbrs listed, no answer. left with update. I will send a MyChart message as well. [facility]04-01-2025 Miscellaneous Notes* Telephone Encounter - Erick Peguero LPN - 10/10/2024 3:28 PM EDT Spoke to [facility], he reported that the Dexcom supplies should be delivered today vis [employer]. Tracking nbr [id number]. According to his notes it was out [...] office for follow up. documented in this encounterUniversity Hospitals Portage Medical Center04-01-2025 Telephone encounter Note * Telephone [...] to patient's provider office for follow up. [facility]03-26-2025 Telephone encounter Note* Telephone Encounter - Gaye Mata RN - 10/04/2024 4:38 PM EDT [employer] called stating that he is out of Dexcom G7 CGM sensors and has been having difficulty getting the shipment from [employer], his DME supplier. Patient states he made 3 calls to them this week, one including a lace tearing supervisor at [facility], who promised that the shipment was sent and would be received in a day or two. Advised patient to contact his provider's office to see if they are able to help as they submitted all the original paperwork to [facility] back in August and I am not sure if they are waiting on something from the office. Patient was also told to see if the provider's office had Dexcom G7 sensor samples to provide until his shipment arrives so he does not have to drive out to [facility]. Patient verbalized understanding. [facility]03-26-2025 Miscellaneous Notes* Telephone Encounter - Gaye Mata RN - 10/04/2024 4:38 PM EDT [employer] called stating that he is out of Dexcom G7 CGM sensors and has been having difficulty getting the shipment from [employer], his DME supplier. Patient states he made 3 calls to them this week, one including a lace tearing supervisor at [facility], who promised that the shipment was sent and would be received in a day or two. Advised patient to contact his provider's office to see if they are able to help as they submitted all the original paperwork to [facility] back in August and I am not sure if they are waiting on something from the office. Patient was also told to see if the provider's office had Dexcom G7 sensor samples to provide until his shipment arrives so he does not have to drive out to [facility]. Patient verbalized understanding. documented in this encounterUniversity Hospitals Port[facility] Center03-19-2025 Telephone encounter Note * Telephone Encounter - Gaye Mata RN - 09/27/2024 1:22 PM EDT In error [facility]03-19-2025 Miscellaneous Notes* Telephone Encounter - Gaye Mata RN - 09/27/2024 1:22 PM EDT In error documented in this encounterUniversity Hospitals Portage Medical Center03-18-2025 Telephone encounter Note * Telephone [...] Advised: Per Provider for her to take Mnaolo to ER. She has already called Report to their ER Agreeable [facility]03-18-2025 Miscellaneous Notes* Telephone Encounter - [...] 09/26/2024 8:29 AM EDT Provided report to [facility]. * Telephone Encounter - Erick Peguero LPN - 09/26/2024 8:18 AM EDT Left message on machine to call the office. * Telephone Encounter - Ramya Crandall, KARIN - 09/26/2024 8:10 AM EDT Pt identified by name and Pt given message below Stated understanding will take pt to [facility] Advised to f/u with endo upon [...] ( see 09-25-2024) Will document this in NavigatorMD/ basics * Telephone Encounter - Erick Peguero [...] in the ER immediately. documented in this encounterUniversity Hospitals Portage Medical Center03-18-2025 Telephone encounter Note * Telephone Encounter - Ayana Zavala APRN.CNP - 09/26/2024 8:29 AM EDT Provided [facility] to [facility]. [facility]03-18-2025 Telephone encounter Note* Telephone Encounter - Erick Peguero LPN - 09/26/2024 8:18 AM EDT Left message on machine to call the office. [facility]03-18-2025 Telephone encounter Note* Telephone Encounter - Ramya Crandall, RN - 09/26/2024 8:10 AM EDT Pt identified by name and Pt given message below Stated understanding will take pt to [facility] Advised to f/u with endo upon [...] 09-25-2024) Will document this in epic/ basics [facility]03-18-2025 Telephone encounter Note* Telephone Encounter - Erick Peguero LPN - 09/26/2024 7:47 AM EDT Attempted to reach patient at both numbers listed in demo. Left urgent messages on both [facility]03-18-2025 Telephone encounter Note* Telephone Encounter - Ayana Zavala APRN.CNP - 09/26/2024 7:39 AM EDT Received page regarding critical lab result of glucose 614 mg/dL. 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 Please call patient and instruct him to be seen in the ER immediately. [facility]03-17-2025 Instructions* Patient Instructions* Ayana Zavala [...] me in 4 weeks documented in this encounterUniversity Hospitals Portage Medical Center03-17-2025 NoteHNO ID: [id number] Author: AYANA ZAVALA APRN.CNP Service: ? Author [...] in the meantime, but was able to moss picker Novolog on 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 Per patient, this was done due to [...] by mouth once daily. Intestinal Chayo Modifiers xpzdyl-cbrvghfk-rsmbjuv (CREON) 24,000-76,000 -120,000 unit cpDR Take 2 capsules by mouth three times daily with meals. and 1 with snacks (8/day) Digestive Enzyme Mixtures lutein-zeaxanthin 25-5 mg cap Take by mouth once daily. Alternative Therapy - Antioxidant Omeprazole Magnesium 20 mg tablet Take 20 mg by mouth. Gastric Acid Secretion Storage Center Manager - Proton Pump Inhibitors (PPIs) PARoxetine (PAXIL) 40 mg tablet Take 40 mg by mouth every morning. Antidepressant - Selective Serotonin Reuptake Inhibitors (SSRIs) tamsulosin (FLOMAX) 0.4 mg Take 0.4 mg by mouth. Prostatic Hypertrophy Agent - bptqd-9-Wanwxchvysmx Antagonists Physical Activity: No formal program Diet: CHO Controlled Diet SMBG Frequency of Monitoring: Four times a Day Not connected with pump (more content not included)...[facility] 09-25-2024 History of Present illness Narrative* Ayana Zavala, AMADA.SENIOR ELECTRONICS TECHNICIAN - 09/25/2024 2:25 PM EDT Images from [...] recently. He is having polydipsia and polyuria. HisNiupaicom G7 is not connected with his pump currently. He reports remembering to put his sensor code in when he last changed this so is confused why that did not work. Reports he ran out of Novolog for his pump on Wednesday but he did have Novolog pens at home so did use this in the meantime, but was able to moss picker Novolog on 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 Per patient, this was done due to [...] by mouth once daily. Intestinal Chayo Modifiers jsrpml-wvbqkrlj-rdsunoz (CREON) 24,000-76,000 -120,000 unit cpDR Take 2 capsules by mouth three times daily with meals. and 1 with snacks (8/day) Digestive Enzyme Mixtures lutein-zeaxanthin 25-5 mg cap Take by mouth once daily. Alternative Therapy - Antioxidant Omeprazole Magnesium 20 mg tablet Take 20 mg by mouth. Gastric Acid Secretion Storage Center Manager - Proton PumpInhibitors (PPIs) PARoxetine (PAXIL) 40 mg tablet Take 40 mg by mouth every morning. Antidepressant - Selective Serotonin Reuptake Inhibitors (SSRIs) tamsulosin (FLOMAX) 0.4 mg Take 0.4 mg by mouth. Prostatic Hypertrophy Agent - lcebl-5-EziugvkqenufLxyomogxguq Physical Activity: No formal program Diet: CHO [...] Specimen Collected: 09/13/24 9:23 AM Performed by: [employer] Last Resulted: 09/13/24 10:54 AM Received From: Muse Result Received: 09/25/24 2:18 PM Impression/Recommendations IMPRESSION [...] LDL , TG LIPID PANEL (EXTERNAL) Order: [id number] Component Ref Range & Units Cholesterol 150 - 200 mg/dL 97 Low Triglycerides 27 - 150 mg/dL 38 HDL Cholesterol >39 mg/dL 50 VLDL 0 - 30 mg/dL 8 LDL (calc) <130 mg/dL 39 Cholesterol:HDL Ratio 1.0 - 5.0 1.9 Resulting Agency [facility] Specimen Collected: 01/22/24 6:06 AM Performed by: LEROY Last Resulted: 01/22/24 1:58 PM Received From: [employer]Parts Result Received: 07/06/24 9:37 AM -- This [...] time of the patient encounter Ayana Zavala APRN.SENIOR ELECTRONICS TECHNICIAN (Signed electronically to expedite mailing) documented in this encounterUniversity Hospitals Portage [facility] Center03-14-2025 Telephone encounter Note * Telephone [...] once he wakes up to reviewpump issues. [facility]03-14-2025 Miscellaneous Notes* Telephone Encounter - [...] up to reviewpump issues. documented in this encounterUniversity Hospitals Portage Medical Center03-14-2025 Telephone encounter Note * Telephone [...] to review pump settings and reinforce education. [facility]03-14-2025 Miscellaneous Notes* Telephone Encounter - [...] settings and reinforce education. documented in this encounterUniversity Hospitals Portage Medical Center02-24-2025 History of Present illness Narrative* Gaye Mata RN - 09/04/2024 1:00 PM EST DIABETES SELF-MANAGEMENT EDUCATION AND SUPPORT FOLLOW-UP VISIT Type of Diabetes: Type 2 Location: [place] Type of visit: In person individual Types [...] 5 insulin pump. Type of training:upgrade from [employer] If upgrade, patient was previously on the [...] Name: Insulet Omnipod 5 System Serial Number: [id number] Sync Date: 09/04/24 Device Time Offset (hh:mm): +00:00 Device Name: Insulet Omnipod Dash System Serial Number: [id number] Sync Date: 03/05/22 Device Time Offset (hh:mm): +00:00 Device Name: Insulet Omnipod Dash System Serial Number: [id number] Sync Date: 11/14/21 Device Time Offset (hh:mm): +00:00 Device Name: Insulet Omnipod DASH [place] Serial Number: Insulet Dash Sync Date: 09/19/20 Device Time Offset (hh:mm): +00:00 Device Name: Insulet Omnipod Dash System Serial Number: [id number] Sync Date: 09/19/20 Device Time Offset (hh:mm): [...] weeks. This is a non-billable encounter through [employer] but will be billed to the following [...] for patient selected goal(s) with dietitian and/or sas statistical programmer within 2-4 weeks/months via office visit, V[facility] Closure message, email, or phone call. Contactinformation provided to patient for sas statistical programmer. Educator to contact patient in 3 days [...] vary based on the plan requirements. Call [phone] to schedule a diabetes education follow up visit. Time Spent (Minutes): 120 This visit note will be communicated to the healthcare provider via access to shared medical record. SIGNATURE: Gaye Mata RN PATIENT NAME: Manolo Roche DATE: September 04, 2024 TIME: 12:45 PM PAGER: documented in this encounterUniversity Hospitals Portage Medical Center02-24-2025 NoteHNO ID: [id number] Author: GAYE MATA RN Service: ? Author Type: Registered Nurse Type: Progress Notes Filed: 09/04/2024 15:22 Note Text: DIABETES SELF-MANAGEMENT EDUCATION AND SUPPORT FOLLOW-UP VISIT Type of Diabetes: Type 2 Location: [place] Type of visit: In person individual Types [...] Name: Insulet Omnipod? 5 System Serial Number: [id number] Sync Date: 09/04/24 Device Time Offset (hh:mm): +00:00 Device Name: Insulet Omnipod Dash? System Serial Number: [id number] Sync Date: 03/05/22 Device Time Offset (hh:mm): +00:00 Device Name: Insulet Omnipod Dash? System Serial Number: [id number] Sync Date: 11/14/21 Device Time Offset (hh:mm): +00:00 Device Name: Insulet Omnipod DASH? [place] Serial Number: Insulet Dash Sync Date: 09/19/20 Device Time Offset (hh:mm): +00:00 Device Name: Insulet Omnipod Dash? System Serial Number: [id number] Sync Date: 09/19/20 Device Time Offset (hh:mm): [...] to hyperglycemia: Yes Patient (more content not included)...[facility]02-20-2025 Telephone encounter Note* Telephone Encounter - Gaye [...] instructions on day of training information to [email or web address] [facility]02-20-2025 Miscellaneous Notes* Telephone Encounter - [...] instructions on day of training information to [email or web address] documented in this encounterUniversity Hospitals Portage Medical Center02-19-2025 History of Present illness Narrative* [...] assistance of a healthcare professional from the [facility], who has introduced a new [...] has beencommunicating with his healthcare team via V[facility] Closure and reports no feelings of depression. He [...] care of a diabetic specialist at the [facility] and is managing well without [...] mild mitral regurgitation, placing him in the [place] Heart Association class 1/2. He is currently [...] ran out of his inhaler while in [place] and was unable to refill it at [...] Pancreatic insufficiency (CMS/HCC) 60' documented in this encounterLake Regional Health [id number] Telephone encounter Note* Telephone Encounter - Miguel A Goodwin MA - 08/15/2024 11:55 AM EST Form completed, faxed, confirmation received. Sent for scan. [facility]02-04-2025 Miscellaneous Notes* Telephone Encounter - Miguel A Goodwin MA - 08/15/2024 11:55 AM EST Form completed, faxed, confirmation received. Sent for scan. * Telephone Encounter - Miguel A Goodwin MA - 08/15/2024 10:23 AM EST Received a fax from [employer] for a physician's order. Placed on [employer]'s desk for signature on form and chart notes. documented in this encounterUniversity Hospitals Portage Medical Center02-04-2025 Telephone encounter Note * Telephone Encounter - Miguel A Goodwin MA - 08/15/2024 10:23 AM EST Received a fax from [employer] for a physician's order. Placed on [employer] desk for signature on form and chart notes. [facility]01-29-2025 Telephone encounter Note* Telephone Encounter - Sheryl Ny MA - 08/09/2024 10:38 AM EST A form has been received from [employer] for LUCA note. Faxed LUCA note 07/06/24 to [phone]. Confirmation received. [facility]01-29-2025 Miscellaneous Notes* Telephone Encounter - Sheryl Ny MA - 08/09/2024 10:38 AM EST A form has been received from [employer] for LUCA note. Faxed LUCA note 07/06/24 to [phone]. Confirmation received. documented in this encounterUniversity Hospitals Portage Medical Center01-14-2025 NoteHNO ID: [id number] Author: GAYE MATA RN Service: ? Author Type: Registered Nurse Type: Progress Notes Filed: 07/25/2024 17:09 Note Text: DIABETES CARE AND EDUCATION VISIT Location: [place] Type of visit: In person individual PATIENT'S [...] Name: Insulet Omnipod Dash? System Serial Number: [id number] Sync Date: 07/06/24 Device Time Offset (hh:mm): [...] basics AND daily use and CGM type: Diabetes America with reader. Patient understand he will need to download [employer] G7 eliane on his Millennium Entertainmenthone SE. Patient unable to recall log in for [employer] eliane. Patient downloaded G6 eliane, not G7 eliane. Educator needed to call [employer] for assistance in resetting password as patient unable to get into his email to obtain code to reset. -Medications: reviewed home DM meds, basal insulin, prandial insulin, prebolusing, stacking insulin and how to prevent it, injectable insulin discussed: using HotClickVideo DASH with [employer] G7 controller, and insulin pump instruction: pump benefits , pump requirements of user, pump limitations , infusion set rotation, activity mode, and insulin pump terminology: basal, bolus, carb ratio, BG target, polkoqx-rl-hyqsj/duration, and patient did not bring insulin vials [...] This visit note tapan (more content not included)...[facility] 07-25-2024 History of Present illness Narrative* Gaye Mata, RN - 07/25/2024 1:04 PM EST DIABETES CARE AND EDUCATION VISIT Location: [place] Type of visit: In person individual PATIENT'S [...] - - - - DEVICES Device Name: OpenWherelet [employer] COLV[employer] LTDipFarmigo System Serial Number: [id number] [facility] Date: 07/06/24 Device Time Offset (hh:mm): [...] Patient understand he will need to download [employer] Together G7 eliane on his Iphone SE. Patient unable to recall log in for Dexcom eliane. Patient downloaded G6 eliane, not G7 eliane. Educator needed to call [employer] for assistance in resetting password as patient [...] terminology: basal, bolus, carb ratio, BG target, cgovjsw-wi-pjiir/duration, and patient did not bring insulin vials [...] PLAN: Individual follow-up Patient does not have [employer]. Email sent prior to today's visit on [...] 2:52 PM PAGER: n/a documented in this encounterUniversity Hospitals Portage Medical Center01-10-2025 Telephone encounter Note * Telephone Encounter - Gaye Mata RN - 07/21/2024 12:09 PM EST In error - patient does not have MyChart set up, status still PENDING. Patient's sent text with code again to create account [facility]01-10-2025 Miscellaneous Notes* Telephone Encounter - Gaye Mata RN - 07/21/2024 12:09 PM EST In error - patient does not have MyChart set up, status still PENDING. Patient's sent text with code again to create account documented in this encounterUniversity Hospitals Portage Medical Center01-09-2025 History of Present illness Narrative* [...] He has a scheduled appointment with his truss maker, Dr. Coppola, in the coming weeks. He [...] He is under the care of an beader tender, Dr. Awa Zavala, at [facility]. He is recovering well from [...] prostatic hyperplasia) COPD (chronic obstructive pulmonary disease) ([facility]/HCC) Diabetes mellitus ([facility]/HCC) 10/04/2019 Ground glass opacity present on imaging of lung 02/05/2023 Hypertension ([facility]) ICD (implantable cardioverter-defibrillator) in place IPMN (intraductal papillary mucinous neoplasm) 06/23/2018 Added automatically from request for surgery [id number] Left ventricular dysfunction Lumbar spondylosis OA (osteoarthritis) [...] & D PARTIAL HIP ARTHROPLASTY Right 04/12/2023 PA TONSILLECTOMY & ADENOIDECTOMY <AGE 12 SPLENECTOMY, 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 Pain is [...] of his abdominal wall. documented in this encounterLake Regional Health [id number] Consult noteChristopher [place] [id number] Cardiology Consult Note Signed Patient: Manolo Roche MR#: [id number] : 1935 Acct:[id number] Age/Sex: 89 / M Adm Date: 5 Loc: 4N Room: 3P3010-7 Type: ADM INOo Attending Dr: Lisa Hidalgo [...] noted below or in HPI [facility] Medical History Type 1 diabetes mellitus CAD (coronary artery disease) Former smoker BPH (benign prostatic hyperplasia) Urinary frequency Cardiomyopathy wearing external defib Coronary artery disease involving muckleshoot coronary artery of muckleshoot heart withoutangina pectoris GI bleeding Dupuytren's contracture [...] days #30 tabs 05/07/23 [Rx Confirmed 07/16/24] gxtoiv-kmkqgptz-xsccurc 24,000-76,000-120,000 unit capsule,delayed rel (Creon) 2cap PO [...] tab PO DAILY 10/26/23 [History Confirmed 07/16/24] xciztw-jbkyefod-yslomel 24,000-76,000-120,000 unit capsule,delayed rel (Creon) 1cap PO [...] # (Auto) N/A Lymph # (Auto) N/A [place] # (Auto) N/A Eos # (Auto) N/A [...] Code(s): I25.10 - Atherosclerotic heart disease of muckleshoot coronary artery without angina pectoris (4) S/P [...] H/o PUD, BPH, Anxiety, depression. Current smoker. [facility] 04/30/23 - Two-vessel coronary artery disease- 100% prox LAD occlusion; 80% D1; LCx has 50% prox stenosis with 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 Echo 04/28/23 - EF 40-45%, mild LVH, trace MR and TR. [facility] 07/16/22 - Successful PCI ostial/proximal LAD-diagonal branch; true MATERIAL COMBINER proximal/mid LAD (attempted wiring with balloon). ECHO in January 2024 at [facility]: EF 30-35% ECHO 03/09/2024: ECHO [...] call with any questions. Follow up with [facility] Cardiology as scheduled. Documented By: Chuck Velasco MD 01/03 1637 Signed By: 07/17/24 1652 [facility]01-06-2025 History and physical note Author Indra Guillory [facility] HospitalNote Date/TimeJanuary 2024 1:48[place] [address] Hospitalist H&P Signed Patient: Manolo Roche MR#: [id number] : 1935 Acct:[id number] Age/Sex: 89 / M Adm Date: 5 Loc: 3T Room: 5K8818-1 Type: ADM INOo Attending Dr: Indra Guillory [...] is noted above in HPI [facility] Medical History Type 1 diabetes mellitus CAD (coronary artery disease) Former smoker BPH (benign prostatic hyperplasia) Urinary frequency Cardiomyopathy wearing external defib Coronary artery disease involving muckleshoot coronary artery of muckleshoot heart withoutangina pectoris GI bleeding Dupuytren's contracture [...] days #30 tabs 05/07/23 [Rx Confirmed 07/16/24] causgx-ixxtytaf-kthoinf 24,000-76,000-120,000 unit capsule,delayed rel (Creon) 2cap PO [...] tab PO DAILY 10/26/23 [History Confirmed 07/16/24] djleov-qhbjfgfi-eunxskx 24,000-76,000-120,000 unit capsule,delayed rel (Creon) 1cap PO [...] % (Auto) 18.9 % (.) 07/16/24 12:30 [place] % (Auto) 12.8 % (.) 07/16/24 12:30 Eos % (Auto) 2.7 % (.) 07/16/24 12:30 Baso % (Auto) 0.8 % (.) 07/16/24 12:30 Nucleat RBC Rel Count 0.2 /100 WBC (0-0.5) 07/16/24 12:30 Neut # (Auto) 4.7 x10E3/uL (1.8-7.7) 07/16/24 12:30 Lymph # (Auto) 1.4 x10E3/uL (1.00-4.8) 07/16/24 12:30 [place]wood # (Auto) 0.9 x10E3/uL (0.0-0.8) H 07/16/24 [...] 2 Documented By: Indra Guillory MD 5 [id number] Signed By: <Electronically signed by Indra Guillory MD> 07/17/24 0141 [facility] Work Phone: 1(972) 681-734801-06-2025 History and physical [place] [id number] Hospitalist H&P Signed Patient: Manolo Roche MR#: [id number] : 1935 Acct:[id number] Age/Sex: 89 / M Adm Date: 5 Loc: 3T Room: 4S1831-2 Type: ADM INOo Attending Dr: Indra Guillory [...] is noted above in HPI [facility] Medical History Type 1 diabetes mellitus CAD (coronary artery disease) Former smoker BPH (benign prostatic hyperplasia) Urinary frequency Cardiomyopathy wearing external defib Coronary artery disease involving muckleshoot coronary artery of muckleshoot heart withoutangina pectoris GI bleeding Dupuytren's contracture [...] days #30 tabs 05/07/23 [Rx Confirmed 07/16/24] jfguan-netnawsj-whmbume 24,000-76,000-120,000 unit capsule,delayed rel (Creon) 2cap PO [...] tab PO DAILY 10/26/23 [History Confirmed 07/16/24] ligsrj-hbcyhyjv-djkbtmc 24,000-76,000-120,000 unit capsule,delayed rel (Creon) 1cap PO [...] % (Auto) 18.9 % (.) 07/16/24 12:30 [place] % (Auto) 12.8 % (.) 07/16/24 12:30 Eos % (Auto) 2.7 % (.) 07/16/24 12:30 Baso % (Auto) 0.8 % (.) 07/16/24 12:30 Nucleat RBC Rel Count 0.2 /100 WBC (0-0.5) 07/16/24 12:30 Neut # (Auto) 4.7 x10E3/uL (1.8-7.7) 07/16/24 12:30 Lymph # (Auto) 1.4 x10E3/uL (1.00-4.8) 07/16/24 12:30 [place] # (Auto) 0.9 x10E3/uL (0.0-0.8) H 07/16/24 [...] 2 Documented By: Indra Guillory MD 5 [id number] Signed By: 07/17/24 0148 [facility]01-05-2025 Evaluation note* Diagnosis Onset Date Resolution [...] August 31, 2024 9:56amCoronary artery disease involving muckleshoot coronary artery of muckleshoot heart wiinactiveFebruary 2024 9:56amHypertensioninactive August 31, 2024 9:56amS/P PTCA (percutaneous transluminal coronary angioplasty)inactiveFebruary 2024 9:56amIschemic cardiomyopathyacuteApril 2024 9:10amType 1 diabetes mellitusacuteApril 2024 9:10amAcute GI bleedingresolvedApril 2024 9:10amCoronary artery disease involving muckleshoot coronary artery of muckleshoot heart wiinactiveApril 2024 9:10amHypertension inactiveApril 2024 9:10amS/P PTCA (percutaneous transluminal coronary angioplasty)inactiveApril 2024 9:10am [facility] Work Phone: 1(395) 840-681801-05-2025 Radiology Diagnostic study [facility] [place] [address] [place] [address] CT Scan Report Signed Patient: Manolo Roche MR#: [id number] : 1935 Acct:[id number] Age/Sex: 89 / M ADM Date: Loc: ER Room: Type: [facility] ER Attending Dr: Copies to: Bertin [...] Sergei Valentin M.D.07/16/2024 4:48 PM Dictation Location: [place] [address] Transcribed By: [facility] 07/16/24 1648 Dictated By: Sergei Valentin II, MD 07/16/24 1636 Signed By: 07/16/24 1648 [facility] Work Phone: [phone] Telephone encounter Note* Telephone Encounter - Gaye Mata RN - 07/13/2024 4:14 PM EST In error [facility]01-02-2025 Miscellaneous Notes* Telephone Encounter - Gaye Mata RN - 07/13/2024 4:14 PM EST In error documented in this encounterUniversity Hospitals Portage Medical Center01-02-2025 Telephone encounter Note * Telephone Encounter - Gaye Mata RN - 07/13/2024 4:09 PM EST Called and spoke with patient and to schedule Omnipod DASH to Omnipod 5 pump upgrade. Patient states he has the new pods and is wearing the Dexcom G6 CGM. Patient was scheduled for carb counting/insulin pump training for 07/25/24 at 1-3 pm at [facility]. Location. Patient's Mychart status is PENDING, invite resent via text and to create account. Email sent to [employer] with clinic address, time, date, and what to bring day of training. [facility]01-02-2025 Miscellaneous Notes* Telephone Encounter - Gaye Mata RN - 07/13/2024 4:09 PM EST Called and spoke with patient and to schedule Omnipod DASH to Omnipod 5 pump upgrade. Patient states he has the new pods and is wearing the Dexcom G6 CGM. Patient was scheduled for carb counting/insulin pump training for 07/25/24 at 1-3 pm at [facility]. Location. Patient's Mychart status is PENDING, invite resent via text and to create account. Email sent to [employer] with clinic address, time, date, and what to bring day of training. documented in this encounterUniversity Hospitals Portage [facility] Center01-02-2025 History of Present illness Narrative* [...] and see him PRN documented in this encounterLake Regional Health [id number] Miscellaneous Notes* Telephone Encounter - Ayana Zavala [...] for training. I reached out to our district sales leader and am waiting to hear back, but hopefully can get him set up for training in the next two weeks. documented in this encounterUniversity Hospitals Portage Medical Center12-26-2024 Telephone encounter Note * Telephone [...] for training. I reached out to our district sales leader and am waiting to hear back, but hopefully can get him set up for training in the next two weeks. [facility]12-26-2024 Note* Addendum Note - Ayana Zavala APRN.CNP - 07/06/2024 1:16 PM ESTAddended by: AYANA ZAVALA on: 07/06/2024 01:16 PM Modules accepted: Orders [facility]12-26-2024 Miscellaneous Notes* Addendum Note - Ayana Zavala APRN.CNP - 07/06/2024 1:16 PM ESTAddended by: AYANA ZAVALA on: 07/06/2024 01:16 PM Modules accepted: Orders documented in this encounterUniversity Hospitals Portage Medical Center12-26-2024 Instructions* Patient Instructions* Ayana Zavala [...] 1 ounce protein) 150 calories or less [place] (1 slice bread, 1-2 slices turkey or [...] high in calories) 1 small granola bar (Taoism Oats makes smaller granola bar or Special K bar), 10 nuts (try using the 100 calorie snack nut packs to limit the portion) Protein Cereal Bar (such as a [employer] Protein Bar) Low Calorie Protein Shake (EAS Advantage Carb Control), 1 small apple, orange, peach, pear (one that you can tuck in your palm) Arabic Yogurt (has 20 grams of carb, 2 ounces of lean protein) or 6 ounce light yogurt 1/3 cup hummus with celery sticks and baby carrots Low Carb Light Wrap (1-2 slices lean meat), lettuce, tomato, 1 tsp light [place] dressing (There are many options which are both high in fiber and low in calories--100 calories or less per wrap) documented in this encounterUniversity Hospitals Portage Medical Center12-26-2024 History of Present illness Narrative* [...] ([place]) [address] [place] [address] History of Present Illness Manolo Roche is a 89 year old male presents today for evaluation of DM Type 1. Here with and son. 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 Per patient, this was done due to [...] (PROBIOTIC-10 ORAL) Take by mouth once daily. phmzev-hguuubga-veovmoa (CREON) 24,000-76,000 -120,000 unit cpDR Take 2 capsules by mouth three times daily with meals. and 1 with snacks (8/day) Digestive Enzyme Mixtures lutein-zeaxanthin 25-5 mg cap Take by mouth once daily. Alternative Therapy - Antioxidant Omeprazole Magnesium 20 mg tablet Take 20 mg by mouth. Gastric Acid Secretion Storage Center Manager - Proton PumpInhibitors (PPIs) PARoxetine (PAXIL) 40 mg tablet Take 40 mg by mouth every morning. Antidepressant - Selective Serotonin Reuptake Inhibitors (SSRIs) tamsulosin (FLOMAX) 0.4 mg Take 0.4 mg by mouth. Prostatic Hypertrophy Agent - yrqdc-9-RxeesfpqrjngPqtgwwzxxkv Physical Activity: No formal program Diet: CHO Controlled Diet SMBG Frequency of Monitoring: Four times a Day Summary of Personal CGM Findings: Dates worn: 06/22/24-07/05/24 CGM Type: Niupaicom 1- CGM recording is adequate for interpretation. [...] ains abnormal data COMPREHENSIVE METABOLIC PANEL Order: [id number] Component Ref Range & Units 5 mo [...] does not use a race coefficient. [facility] MAIN LAB Specimen Collected: 01/24/24 6:05 AM Performed by: [employer] Last Resulted: 01/24/24 7:22 AM Received From: [employer] Result Received: 07/06/24 9:37 AM Impression/Recommendations IMPRESSION [...] LDL , TG LIPID PANEL (EXTERNAL) Order: [id number] Component Ref Range & Units 5 mo ago Cholesterol 150 - 200 mg/dL 97 Low Triglycerides 27 - 150 mg/dL 38 HDL Cholesterol >39 mg/dL 50 VLDL 0 - 30 mg/dL 8 LDL (calc) <130 mg/dL 39 Cholesterol:HDL Ratio 1.0 - 5.0 1.9 Resulting Agency [facility] Specimen Collected: 01/22/24 6:06 AM Performed by: [employer] Last Resulted: 01/22/24 1:58 PM Received From: [employer] Result Received: 07/06/24 9:37 AM -- This [...] which included preparing to see the patient, dlxw-yv-rgtb patient care, completing clinical documentation, counseling and educating the patient/family/caregiver, ordering medications, tests, or procedures, and communicating results to the mary ent/family/caregiver. Ayana Zavala APRN.KALANI (Signed electronically to expedite mailing) documented in this encounterUniversity Hospitals Portage Medical Center12-26-2024 NoteHNO ID: [id number] Author: AYANA ZAVALA APRN.KALANI Service: ? Author Type: Nurse Practitioner Type: Progress Notes Filed: 07/06/2024 12:36 Note Text: Endocrinology Initial Diabetes Assessment Manolo Roche is here for a consultation regarding: DM Type 2 My final recommendations will be communicated back to the requesting physician by way of shared Medical record or letter to requesting physician via US mail. PCP is DO Marie Rodriguez ([facility]) [address] [place] [address] History of Present Illness Manolo Roche is a 89 year old male presents today for evaluation of DM Type 1. Here with and son. 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 Per patient, this was done due to [...] (PROBIOTIC-10 ORAL) Take by mouth once daily. xahpov-nuojklts-wxnvkap (CREON) 24,000-76,000 -120,000 unit cpDR Take 2 capsules by mouth three times daily with meals. and 1 with snacks (8/day) Digestive Enzyme Mixtures lutein-zeaxanthin 25-5 mg cap Take by mouth once daily. Alternative Therapy - Antioxidant Omeprazole Magnesium 20 mg tablet Take 20 mg by mouth. Gastric Acid Secretion Storage Center Manager - Proton Pump Inhibitors (PPIs) PARoxetine (PAXIL) 40 mg tablet Take 40 mg by mouth every morning. Antidepressant - Selective Serotonin Reuptake Inhibitors (SSRIs) tamsulosin (FLOMAX) 0.4 mg Take 0.4 mg by mouth. Prostatic Hypertrophy Agent - navte-5-Qymsyjsbkznb Antagonists Physical Activity: No formal program Diet: [...] meals *Nocturnal hypoglycemia n (more content not included)...[facility]12-23-2024 History of Present illness Narrative* Beto Oh [...] [place] in 1-2 weeks. documented in this encounterLake Regional Health [id number] History of Present illness Narrative* Marie Tejeda [...] 06/23/2018 Added automatically from request for surgery [id number] Left ventricular dysfunction Lumbar spondylosis OA (osteoarthritis) Pancreatitis Hospitalized Rotator cuff tendonitis SURGICAL HISTORY: Past Surgical History: Procedure Laterality Date APPENDECTOMY 1948 CERVICAL DISCECTOMY [address] ANGIOGRAM HEART CORONARY 01/21/2024 CT ANGIOGRAM TAVR 01/21/2024 FINE NEEDLE ASPIRATION 04/2018 HEART CATH 04/2023 heart cath HIP SURGERY Right 04/2023 right hip surgery OTHER SURGICAL HISTORY 04/2024 ICD placement PARTIAL HIP ARTHROPLASTY Right 04/12/2023 PA TONSILLECTOMY & ADENOIDECTOMY <AGE 14 SPLENECTOMY, 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 VASECTOMY 1989 SOCIAL HISTORY: Social History Tobacco [...] Depression - At risk (01/21/2024) Received from [employer] PHQ-2 Total Score: 3 FAMILY HISTORY: Family [...] mg, 2 times daily before meals pancrelipase, Wck-Qgdu-Qwty, (Creon) 93505-38314 units capsule TAKE 2 CAPSULES BY MOUTH [...] . Reviewed recent hospitalization documented in this encounterLake Regional Health [id number] Evaluation note* Diagnosis Onset Date Resolution Status [...] 16, 2024 6:08pmPleuritic chest painresolvedJanuary 2024 6:08pm [facility] Work Phone: 1(526) 325-562312-06-2024 Evaluation note* Diagnosis Onset Date Resolution Status [...] GI bleedingresolvedFebruary 2024 9:56amCoronary artery disease involving muck[place] coronary artery of [place] heart wiinactiveFebruary 2024 9:56amHypertensioninactiveFebruary 2024 9:56amS/P PTCA (percutaneous transluminal coronary angioplasty)inactiveFebruary 2024 9:56am [facility] Work Phone: 1(164) 756-976111-19-2024 History of Present illness Narrative* Marie Tejeda, - 05/30/2024 2:00 PM EST Images from the original note were not included. Manolo Roche is a 89 y.o. male presents with chief complaint of Hospital Follow-up HPI: HPI History of Present Illness The patient presents for evaluation of multiple medical concerns. He is managing his insulin pump independently, with an upcoming appointment with his beader tender on 07/06/2024. His blood sugar levels have [...] Flowsheet Row Patient Outreach from 05/29/2024 in [facility] with Alejandrina Santamaria LPN Hospital Information ED, Hospital or Intermediate Facility Discharge? Hospital Patient has been contacted within two business days of discharge Yes Diagnosis ICD placement Discharge Date 05/25/24 Discharged To: Home Setting Discharge [facility] Engagement Call Start Time 1019 Admission [...] prostatic hyperplasia) COPD (chronic obstructive pulmonary disease) ([facility]) Diabetes mellitus ([facility]) 10/04/2019 Ground glass opacity present on imaging of lung 02/05/2023 Hypertension (CMS/HCC) ICD (implantable cardioverter-defibrillator) in place IPMN (intraductal papillary mucinous neoplasm) 06/23/2018 Added automatically from request for surgery [id number] Left ventricular dysfunction Lumbar spondylosis OA (osteoarthritis) Pancreatitis Hospitalized Rotator cuff tendonitis SURGICAL HISTORY: Past Surgical History: Procedure Laterality Date APPENDECTOMY 1949 CERVICAL DISCECTOMY [address] ANGIOGRAM HEART CORONARY 01/21/2024 CT ANGIOGRAM TAVR 01/21/2024 FINE NEEDLE ASPIRATION 04/2018 HEART CATH 04/2023 heart cath HIP SURGERY Right 04/2023 right hip surgery PARTIAL HIP ARTHROPLASTY Right 04/12/2023 PA TONSILLECTOMY & ADENOIDECTOMY <AGE 14 SPLENECTOMY, 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 [facility] [place] VASECTOMY 1989 SOCIAL HISTORY: Social [...] Depression - At risk (01/21/2024) Received from [facility] PHQ-2 Total Score: 3 FAMILY HISTORY: Family [...] mg, 2 times daily before meals pancrelipase, Jxu-Txll-Muzj, (Creon) 11489-56056 units capsule TAKE 2 CAPSULES BY MOUTH [...] next month until his appointment with the beader tender on July 06, 2024. Endo apt at [...] assistance of MARYANN Hedrick. documented in this encounterLake Regional Health [id number] [place] [address] Discharge Summary Signed Patient: Manolo Roche MR#: [id number] : 1935 Acct:[id number] Age/Sex: 89 / M Adm Date: 4 Loc: Room: [address] [place] [address]: Abdulaziz Root MD Copies to: [...] DM s/p pancreatectomy, BPH who initially presented [facility] in Apr 2023 following a [...] for discharge and will follow-up with his truss maker as well as electrophysiology in the pacemaker [...] Sodium 138, Potassium 4.0, Chloride 103, Carbon Lndbpgp58.5, Anion Gap 11.5, BUN 19, Creatinine 0.75, [...] 05/12 11/02 1135 Signed By: 05/25/24 1139 [facility]11-14-2024 [place] [address] Cardiology Progress Note Signed Patient: Manolo Roche MR#: [id number] : 1935 Acct:[id number] Age/Sex: 89 / M Adm Date: 4 Loc: Room: [address] [place] [address] Type: ADM IN Attending Dr: Abdulaziz Root [...] 05/12 11/02 1035 Signed By: 05/25/24 1041 [facility]11-13-2024 Discharge summary Author Chuck Velasco [facility] HospitalNote Date/TimeNovember 2023 11:39am [place] [address] Discharge Summary Signed Patient: Manolo Roche MR#: [id number] : 1935 Acct:[id number] Age/Sex: 89 / M Adm Date: 4 Loc: Room: [address] [place] [address]: Abdulaziz Root MD Copies to: [...] DM s/p pancreatectomy, BPH who initially presented [facility] in Apr 2023 following a [...] for discharge and will follow-up with his truss maker as well as electrophysiology in the pacemaker [...] Sodium 138, Potassium 4.0, Chloride 103, Carbon Gbmwjqr29.5, Anion Gap 11.5, BUN 19, Creatinine 0.75, [...] <Electronically signed by Chuck Velasco MD> 05/25/24 113 [facility] Work Phone: 1([phone]) 858-687010-16-2024 Evaluation note* [facility] 3:55pm# CAD s/p PCI in Jul 2023. # Ischemic cardiomyopathy s/p LifeVest ordered in [place] # Other: T1DM after total pancreatectomy in 2019, Left wrist CTS, H/o PUD, BPH, Anxiety, depression. Current smoker. [facility] 04/30/23 - Two-vessel coronary artery disease- 100% prox LAD occlusion; 80% D1; LCx has 50% prox stenosis with 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 Echo 04/28/23 - EF 40-45%, mild LVH, trace MR and TR. [facility] 07/16/22 - Successful PCI ostial/proximal LAD-diagonal branch; true MATERIAL COMBINER proximal/mid LAD (attempted wiring with balloon). EKG 09/07/23 - sinus peace 56 bpm, anterolateral TWI. EKG 09/08/23 - sinus peace 58 bpm, anterolateral and inferior TWI. ECHO in January 2024 at [facility]: EF 30-35% ECHO 03/09/2024: ECHO [...] up in 2 months in HF clinic. [facility] Work Phone: 1([phone]) 762-165410-16-2024 Evaluation note* Author Anat Perez [facility] 2023 2:55pm# CAD s/p PCI in Jul 2023. # Ischemic cardiomyopathy s/p LifeVest ordered in [place] # Other: T1DM after total pancreatectomy in 2019, Left wrist CTS, H/o PUD, BPH, Anxiety, depression. Current smoker. [facility] 04/30/23 - Two-vessel coronary artery disease- 100% prox LAD occlusion; 80% D1; LCx has 50% prox stenosis with 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 Echo 04/28/23 - EF 40-45%, mild LVH, trace MR and TR. [facility] 07/16/22 - Successful PCI ostial/proximal LAD-diagonal branch; true MATERIAL COMBINER proximal/mid LAD (attempted wiring with balloon). EKG 09/07/23 - sinus peace 56 bpm, anterolateral TWI. EKG 09/08/23 - sinus peace 58 bpm, anterolateral and inferior TWI. ECHO in January 2024 at [facility]: EF 30-35% ECHO 03/09/2024: ECHO [...] up in 2 months in HF clinic. [facility] Work Phone: 1(855) 870-300910-16-2024 Chief complaint+Reason for visit Narrative * Chief [...] Type 1 diabetes mellitus July 16 6:08pm [facility] Work Phone: 1([phone]) 882-147010-16-2024 Chief complaint+Reason for visit Narrative * Chief [...] Type 1 diabetes mellitus July 16 6:08pm [facility] Work Phone: 1(847) 549-719910-14-2024 History of Present illness Narrative* Agnes Moreno, [...] 06/23/2018 Added automatically from request for surgery [id number] Left ventricular dysfunction Lumbar spondylosis OA (osteoarthritis) Pancreatitis Hospitalized Rotator cuff tendonitis SURGICAL HISTORY: Past Surgical History: Procedure Laterality Date APPENDECTOMY 1949 CERVICAL DISCECTOMY [address] ANGIOGRAM HEART CORONARY 01/21/2024 CT ANGIOGRAM TAVR 01/21/2024 FINE NEEDLE ASPIRATION 04/2018 HEART CATH 04/2023 heart cath HIP SURGERY Right 04/2023 right hip surgery PARTIAL HIP ARTHROPLASTY Right 04/12/2023 PA TONSILLECTOMY & ADENOIDECTOMY <AGE 14 SPLENECTOMY, TOTAL [...] Depression - At risk (01/21/2024) Received from [facility] PHQ-2 Total Score: 3 FAMILY HISTORY: Family [...] mg, 2 times daily before meals pancrelipase, How-Sbgs-Alat, (Creon) 04133-40648 units capsule TAKE 2 CAPSULES BY MOUTH [...] He has been in contact with his pharmacy messenger, but has notreceived any further communication. 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 A referral to an beader tender, Dr. Liyah Yeung, has been made to [...] for follow-up. Diagnosis Plan 1. Pancreatic insufficiency ([facility]) Ambulatory referral to Endocrinology 2. Coronary arteriosclerosis ([facility]) metoprolol succinate XL (Toprol-XL) 25 MG 24 hr tablet 3. 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([facility]) Ambulatory referral to Endocrinology 4. 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 I am following Dr Tejeda's established plan of care for these issues. Dr Tejeda is in the office suite today and is supervising patient care. documented in this encounterLake Regional Health [id number] History of Present illness Narrative* Marie Tejeda, [...] was black, leading to his transfer to [facility]. He had an ulnar fracture [...] prostatic hyperplasia) COPD (chronic obstructive pulmonary disease) ([facility]) Diabetes mellitus (CMS/HCC) 10/04/2019 Ground glass opacity present on imaging of lung 02/05/2023 Hypertension (CMS/HCC) IPMN (intraductal papillary mucinous neoplasm) 06/23/2018 Added automatically from request for surgery [id number] Left ventricular dysfunction Lumbar spondylosis OA (osteoarthritis) Pancreatitis Hospitalized Rotator cuff tendonitis SURGICAL HISTORY: Past Surgical History: Procedure Laterality Date APPENDECTOMY 194 CERVICAL DISCECTOMY [address] ANGIOGRAM HEART CORONARY 01/21/2024 CT ANGIOGRAM TAVR 01/21/2024 FINE NEEDLE ASPIRATION 04/2018 HEART CATH 04/2023 heart cath HIP SURGERY Right 04/2023 right hip surgery PARTIAL HIP ARTHROPLASTY Right 04/12/2023 PA TONSILLECTOMY & ADENOIDECTOMY <AGE 14 SPLENECTOMY, 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 STOMACH SURGERY 12/2021 Stomach Ulcer Surgery - [facility] [place] VASECTOMY 1989 SOCIAL HISTORY: [...] Not at risk (04/05/2024) Received from [facility] PHQ-2 Patient Health Questionnaire-2 Score: 0 Recent Concern: Depression - At risk (01/21/2024) Received from [employer] PHQ-2 Total Score: 3 FAMILY HISTORY: [...] Sublingual NovoLOG FLEXPEN 100 UNIT/ML pen pancrelipase, Xqo-Qcpc-Lrik, (Creon) 90421-92250 units capsule TAKE 2 CAPSULES BY MOUTH [...] mellitus with hyperosmolarity without nonketotic hyperglycemic hyperosmolar coma([facility]) POCT glycosylated hemoglobin (Hb A1C) docked device 3. Generalized anxiety disorder ([facility]) PARoxetine (Paxil) 40 MG tablet 4. Need for immunization against influenza Flu vaccine, trivalent, adjuvanted, preservative free 5. Acquired total absence of pancreas 6. Benign prostatic hyperplasia with urinary frequency 7. 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 ([facility]) 8. 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 H pylori ulcer see note to GI 10. 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 I recommended referral to specialty clinic for DM/pancreatectomy 11. Insulin pump in place 12. Pancreatic insufficiency ([facility]) 13. Duodenal ulcer see letter to GI cont PPI stop carafate - out of concern for binding meds 14. Medicare annual wellness visit, subsequent 15. ACP (advance care planning) 16. Bradycardia on low dose BB no changes for now 17. Orthostatic hypotension all BP meds stopped except for BB 18. Acute on chronic systolic congestive heart failure ([facility]) NYHA 3 Stgae D educated on [...] A note will be sent to the pharmacy messenger to discuss the possibility of using a [...] Wednesday for follow-up. 90+' documented in this encounterLake Regional Health [id number] Note Attestation signed by Patrick Beard MD at 04/14/2024 12:12 PM I saw and evaluated the patient. I reviewed the resident's/fellow's note and agree with the findings and plan documents in the resident's/fellow's note [facility] Gastroenterology New Patient Visit - History & [...] jejunostomy and splenectomy in 2019 at [facility] in [place]. Patient was referred for the gastroenterology clinic to be established as a new patient regarding his history of peptic ulcer disease with a recent EGD finding in [facility] in February 04, 2024 after he was [...] follow-up scheduled. PREVIOUS LABS/IMAGING/ENDOSCOPY: EGD 02/05/2024 in [facility]: Showing gastritis with anastomosis ulcer with visible [...] Type 1 diabetes mellitus (CMS/HCC) Diabetes mellitus ([facility]) Acute GI bleeding Anemia of chronic disease Postoperative anemia Arthralgia of hip ASCVD (arteriosclerotic cardiovascular disease) Barretts esophagus Benign prostatic hyperplasia BMI 20.0-20.9, adult Closed intertrochanteric fracture of right hip ([facility]CC) Closed nondisplaced fracture of fourth cervical vertebra with routine healing Fracture of C5 vertebra, closed ([facility]) Current moderate episode of major 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 (CMS/HCC) Dyslipidemia E coli infection Elevated d-dimer Essential hypertension Fracture of cervical spinous process (CMS/HCC) Fractured hip ([facility]) Hip fracture due to osteoporosis, sequela Anxiety and depression Generalized anxiety disorder Gram negative sepsis ([facility]) Duodenal ulcer H pylori ulcer Stomach ulcer H/O splenectomy Helicobacter pylori (H. 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 ([facility]) Hypomagnesemia Impaired mobility and activities of daily living Insulin pump in place IPMN (intraductal papillary mucinous neoplasm) Iron deficiency Ischemic myocardial dysfunction Left carpal tunnel syndrome Left radial fracture Leukemoid reaction Melena Mild left ventricular systolic dysfunction (LVSD) Mixed hyperlipidemia Need for immunization against influenza Non-ST elevation (NSTEMI) myocardial infarction ([facility]CC) Nonsustained monomorphic ventricular tachycardia ([facility]) Osteoporosis Perforated viscus Pneumonia of both lungs due to infectious organism Protein-calorie malnutrition, mild ([facility]) Pyelonephritis Recent fracture of hip ([facility]) Smoker Sepsis without acute organ dysfunction ([facility]) Sepsis due to Escherichia coli without acute organ dysfunction ([facility]) S/P PTCA (percutaneous transluminal coronary angioplasty) Sepsis due to urinary tract infection ([facility]) Traumatic rhabdomyolysis ([facility]) Two-vessel coronary artery disease Closed lumbar vertebral fracture ([facility]) Past Medical History: History reviewed. No pertinent past medical history. Past Surgical History: History reviewed. No p (more content not included)...[facility]09-04-2024 Anthony left a message last week for backup administrative coordinator Irish with [facility] [...] Valerio Plummer and call back # of [phone]. [facility]07-29-2024 Progress note Author Anat Perez [facility] February 07, 2024 5:07pmNote Date/TimeJuly 2023 3:18pm[place] [address] Cardiology Progress Note Signed Patient: Manolo Roche MR#: [id number] : 1935 Acct:[id number] Age/Sex: 88 / M Adm Date: 4 Loc: Room: [address] [place] [address] Type: ADM IN Attending Dr: Warren Gross [...] ordered for him after recent hospital stayin [place]. On admission, stool occult blood was positive. [...] MPV Neut % (Auto) Lymph % (Auto) [place] % (Auto) Eos % (Auto) Baso % (Auto) Nucleat RBC Rel Count Neut # (Auto) Lymph # (Auto) [place] # (Auto) Eos # (Auto) Baso # (Auto) PHA Creatinine Clear Sodium Potassium Chloride Carbon Dioxide Anion Gap BUN Creatinine Est GFR (CKD-EPI) Glucose POC Glucose 377 POC Glucose Comment Glu2: cleaned meter Estimat Average Glucose 194 Hemoglobin A1c 8.4 H Calcium Magnesium Blood Type A Positive Antibody Screen Negative Crossmatch ([facility]) See Detail 02/06/24 02/06/24 02/06/24 20:51 20:51 20:53 Corrected WBC Uncorrected WBC Count RBC Hgb Hct MCV MCH MCHC RDW Plt Count MPV Neut % (Auto) Lymph % (Auto) [place] % (Auto) Eos % (Auto) Baso % (Auto) Nucleat RBC Rel Count Neut # (Auto) Lymph # (Auto) [place] # (Auto) Eos # (Auto) Baso # (Auto) PHA Creatinine Clear Sodium Potassium Chloride Carbon Dioxide Anion Gap BUN Creatinine Est GFR (CKD-EPI) Glucose POC Glucose 547 H* 523 H* POC Glucose Comment Will notify dr/rn Glu2: cleaned meter Estimat Average Glucose Hemoglobin A1c Calcium Magnesium Blood Type Antibody Screen Crossmatch ([facility]) 02/06/24 02/06/24 02/06/24 20:53 20:53 22:12 Corrected WBC Uncorrected WBC Count RBC Hgb 9.0 L Hct 26.4 L MCV MCH MCHC RDW Plt Count MPV Neut % (Auto) Lymph % (Auto) [place] % (Auto) Eos % (Auto) Baso % (Auto) Nucleat RBC Rel Count Neut # (Auto) Lymph # (Auto) [place] # (Auto) Eos # (Auto) Baso # (Auto) PHA Creatinine Clear Sodium Potassium Chloride Carbon Dioxide Anion Gap BUN Creatinine Est GFR (CKD-EPI) Glucose POC Glucose POC Glucose Comment Will notify dr/rn Follow hypoglycemic Estimat Average Glucose Hemoglobin A1c Calcium Magnesium Blood Type Antibody Screen Crossmatch ([facility]) 02/07/24 02/07/24 02/07/24 06:21 06:35 11:12 Corrected WBC 7.2 Uncorrected WBC Count 7.2 RBC 3.24 L Hgb 8.7 L Hct 25.3 L MCV 78.1 L MCH 26.7 L MCHC 34.2 RDW 19.3 H Plt Count 184 MPV 10.8 H Neut % (Auto) 47.8 Lymph % (Auto) 28.8 [place] % (Auto) 16.7 Eos % (Auto) 5.5 Baso % (Auto) 1.2 Nucleat RBC Rel Count 0.2 Neut # (Auto) 3.4 Lymph # (Auto) 2.1 [place] # (Auto) 1.2 H Eos # (Auto) [...] 1.6 L Blood Type Antibody Screen Crossmatch ([facility]) A&P - Cardiology (1) Acute GI bleeding: Code(s): K92.2 - Gastrointestinal hemorrhage, unspecified (2) Elevated troponin: Code(s): R79.89 - Other specified abnormal findings of blood chemistry (3) Coronary artery disease involving muck[place]oot coronary artery of [place] heart without angina pectoris: Code(s): I25.10 - Atherosclerotic heart disease of [place] coronary artery without angina pectoris (4) S/P PTCA (percutaneous transluminal coronary angioplasty): Code(s): Z98.61 - Coronary angioplasty status Plan # Acute recurrent GI Bleed in setting of known PUD (recent EGD on 09/01/23 found a 2 cm ulcer with anonbleeding visible vessel at the bulb of the duodenum). # CAD s/p PCI in Jul 2023. # Ischemic Cardiomyopathy s/p LifeVest ordered in [place] - Well compensated. # Non-ACS myocardial injury - Is due to demand-supply mismatch 2/2 acute anemia. 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 Current smoker. [facility] 04/30/23 - Two-vessel coronary artery disease- 100% prox LAD occlusion; 80% D1; LCx has 50% prox stenosis with 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 Echo 04/28/24 - EF 40-45%, mild LVH, trace MR and TR. [facility] 07/16/22 - Successful PCI ostial/proximal LAD-diagonal branch; true MATERIAL COMBINER proximal/mid LAD (attempted wiring with balloon). EKG 09/07/23 - sinus peace 56 bpm, anterolateral TWI. EKG 09/08/23 - sinus peace 58 bpm, anterolateral and inferior TWI. - Pt is currently 6 months out from PCI. Will stop Plavix and if Hb remains stable, continue ASA 81mg daily. - Reviewed records from hospitalization at [facility] in [place]. He was hospitalized for NSTEMI and PNA. [...] follow Documented By: Anat Perez MD 02/07/24 0716 Signed By: <Electronically signed by Anat Perez MD> 02/07/24 170 [facility] Work Phone: 1(518) 790-499607-29-2024 Progress note Author Warren Gross [facility] February 07, 2024 12:28pmNote Date/TimeJuly 2023 12:29pm[place] [address] Hospitalist Progress Note Signed Patient: Manolo Roche MR#: [id number] : 1935 Acct:[id number] Age/Sex: 88 / M Adm Date: 4 Loc: Room: [address] [place] [address] Type: ADM IN Attending Dr: Warren Gross [...] 81 Mg Tablet. PO 02/07/25 08:59 DAILY TAIVA Atorvastatin Calcium 80 mg 02/06/24 22:00 02/06/24 [...] Insuln.Pen SUBCUT 02/05/25 21:59 Not Given TID.WM.HS [facility] Protocol Insulin Aspart 0 units 02/07/24 08:00 02/07/24 10:58 Insulin Aspart 300 Units/3 Ml Insuln.Pen SUBCUT 02/06/25 07:59 Not Given TID.WITH.MEALS [facility] Protocol Insulin Glargine 6 units 02/07/24 [...] Tablet PO 02/06/25 08:59 DAILY [facility] A&P - Hospitalist Assessment/Plan (1) Acute [...] <Electronically signed by Warren Gross DO> 02/07/241227 [facility] Work Phone: 1(419) 769-985207-29-2024 [facility]2024 Progress note Author Sushant Cordon [facility] February 06, 2024 9:45pmNote Date/TimeJuly 2023 9:45[place] [address] Progress Note Signed Patient: Manolo Roche MR#: [id number] : 1935 Acct:[id number] Age/Sex: 88 / M Adm Date: 4 Loc: Room: [address] [place] [address] Type: ADM IN Attending Dr: Nayeli Jimenez MD Copies to: ~ Date of Service: 02/06/2024 Progress Narrative Note PROGRESS NOTE Progress Note: Today the patient has developed progressively worsening hyperglycemia. The patient has history of total pancreatectomy a few years ago when he lived [facility]. He uses a G7 continuous glucose monitoring [...] <Electronically signed by Sushant Cordon DO> 02/06/242144 [facility] Work Phone: 1(205) 242-991707-28-2024 Consult note Author Chuck Velasco [facility] February 06, 2024 2:44pmNote Date/TimeJuly 2023 2:36pm[place] [address] Cardiology Consult Note Signed Patient: Manolo Roche MR#: [id number] : 1935 Acct:[id number] Age/Sex: 88 / M Adm Date: 4 Loc: 3T Room: [address] [place] [address] Type: ADM IN Attending Dr: Nayeli Jimenez [...] ordered for him after recent hospital stayin [place]. On admission, stool occult blood was positive. Severe anemia of 7.7, with normal Plt of 277. Troponin was mildly elevated at 50--77--85. EKG shows sinus peace with anterolateral and inferior TWI. Review of Systems Review of Systems All other systems reviewed & are negative unless noted below or in HPI [facility] Medical History Hypertension CAD (coronary artery disease) [...] days #30 tabs 05/07/23 [Rx Confirmed 02/05/24] rzpgfw-mkzoupmf-uwlsetg 24,000-76,000-120,000 unit capsule,delayed rel (Creon) 2cap PO [...] unit subcut HS 08/31/23 [History Confirmed 10/28/23] ygfqpbirnkme-fcuqqkmw-ejtljk tablet (Multivitamin 50 Plus tablet) 1 tab [...] 90 days #180tabs 11/11/23 [Rx Confirmed 10/28/23] wjddbh-wbzbermi-isuxvpc 24,000-76,000-120,000 unit capsule,delayed rel (Creon) 1cap PO [...] Lymph # (Auto) 1.5 1.8 (1.00-4.8) x10E3/uL Cottonwood # (Auto) 0.4 0.7 (0.0-0.8) x10E3/uL Eos [...] 8 MG/HR 10 mls/hr IV .Q10H TAVIA Rx#:[id number] Sodium Chloride 0.9% 1,000 ml 1 1000 / 1000 ,000 ml @ 999 mls/hr IV .Q1H1M ONE Rx#:[id number] Oral 0 / 0 Output: Urine 350 / 350 Other: Total Intake (Blood Product) Cumulative Amt Leukocyte Reduced Rbc Unit 325 [id number] Leukocyte Reduced Rbc Unit 325 [id number] Weight 65.5 kg 65.5 kg Date of Last Bowel Movement 02/06/24 02/06/24 Lab 02/05/24 19:34 PT 15.5 H INR 1.3 APTT 23.6 L A&P - Cardiology (1) Acute GI bleeding: Code(s): K92.2 - Gastrointestinal hemorrhage, unspecified (2) Elevated troponin: Code(s): R79.89 - Other specified abnormal findings of blood chemistry (3) Coronary artery disease involving muckleshoot coronary artery of muckleshoot heart without angina pectoris: Code(s): I25.10 - Atherosclerotic heart disease of muck[place] coronary artery without angina pectoris (4) S/P PTCA (percutaneous transluminal coronary angioplasty): Code(s): Z98.61 - Coronary angioplasty status Plan # Acute recurrent GI Bleed in setting of known PUD (recent EGD on 09/01/23 found a 2 cm ulcer with anonbleeding visible vessel at the bulb of the duodenum). # CAD s/p PCI in Jul 2023. # Cardiomyopathy s/p LifeVest ordered in [place] - Well compensated. # Non-ACS myocardial injury - Is due to demand-supply mismatch 2/2 acute anemia. 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 Current smoker. [facility] 04/30/23 - Two-vessel coronary artery disease- 100% prox LAD occlusion; 80% D1; LCx has 50% prox stenosis with 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 Echo 04/28/24 - EF 40-45%, mild LVH, trace MR and TR. [facility] 07/16/22 - Successful PCI ostial/proximal LAD-diagonal branch; true MATERIAL COMBINER proximal/mid LAD (attempted wiring with balloon). EKG 09/07/23 - sinus peace 56 bpm, anterolateral TWI. EKG 09/08/23 - sinus peace 58 bpm, anterolateral and inferior TWI. - Get records from [place] on recent hospitalization and LifeVest. - GI [...] signed by Chuck Velasco MD> 02/06/24 1444 [facility] Work Phone: 1(233) 457-595107-28-2024 Progress note Author Nayeli Jimenez [facility] February 06, 2024 12:35pmNote Date/TimeJuly 2023 12:35pm[place] [address] Hospitalist Progress Note Signed Patient: Manolo Roche MR#: [id number] : 1935 Acct:[id number] Age/Sex: 88 / M Adm Date: 4 Loc: 3T Room: 3K2252-6 Type: ADM IN Attending Dr: Nayeli Jimenez MD Copies to: ~ Date of Service: 02/06/2024 Subjective Subjective Narrative: Patient was seen evaluated at bedside, remained afebrile, hemodynamically appears stable, patient denies any BMs while here. Seen by GI team recommended cardiac clearance given his cardiac hx. Will obtain records from [place] as pt recently been there for concerns [...] Tablet PO 02/06/25 08:59 DAILY [facility] A&P - Hospitalist Assessment/Plan (1) Acute [...] signed by Nayeli Jimenez MD> 02/06/24 1235 [facility] Work Phone: 1(406) 660-841207-28-2024 Consult note Author Manuel Barraza [facility] February 06, 2024 9:36amNote Date/TimeJuly 2023 9:[address] [place] [address] Gastroenterology Consult Note Signed Patient: Manolo Roche MR#: [id number] : 1935 Acct:[id number] Age/Sex: 88 / M Adm Date: 4 Loc: Room: [address] [place] [address] Type: ADM IN Attending Dr: Nayeli Jimenez MD Copies to: MD Nayeli Rendon MD Robert J Vaschak,DO~ HPI Data of Consult Date of Consultation: 02/06/24 Requesting Physician: Nayeli Jimenez MD Consult Narrative History of present illness: Mr. Roche is a 88 year old male admitted with syncopal episode. Briefly, the patient presented earlier this month to the [facility] after being found down, unresponsive noted low blood sugars. He was ultimately transferred to [facility] in [place]. Noted a nondisplaced ulnar fracture, atypical PNA, [...] weeks ago, prior to his admission in [place]. She does not think he is on his PPI any longer, she believes he completed treatment with that. Remote colonoscopy she reports as normal. On admission BPs initially soft, but fluid responsive. Hgb down ~2 gram from discharge from [place] 2 weeks ago. Uptrending troponin. Havingsome dynamic [...] easy bruising and Denies lymphadenopathy [facility] Medical History (Updated 02/06/24 @ 02:47 by [...] days #30 tabs 05/07/23 [Rx Confirmed 02/05/24] nihgvw-slgkpvhq-hdfqtsk 24,000-76,000-120,000 unit capsule,delayed rel (Creon) 2cap PO [...] unit subcut HS 08/31/23 [History Confirmed 10/28/23] trgomfgtcqys-czjwkmqk-jjfpbr tablet (Multivitamin 50 Plus tablet) 1 tab [...] 90 days #180tabs 11/11/23 [Rx Confirmed 10/28/23] oborwz-feshqmxs-vmpclxj 24,000-76,000-120,000 unit capsule,delayed rel (Creon) 1cap PO [...] % (Auto) 78.3 Lymph % (Auto) 16.3 Cottonwood % (Auto) 4.8 Eos % (Auto) 0.2 Baso % (Auto) 0.4 Nucleat RBC Rel Count 0.1 Neut # (Auto) 7.0 Lymph # (Auto) 1.5 Cottonwood # (Auto) 0.4 Eos # (Auto) 0.0 [...] Type A Positive Antibody Screen Negative Crossmatch ([facility]) See Detail 02/06/24 06:56 Corrected WBC Uncorrected WBC Count RBC Hgb Hct MCV MCH MCHC RDW Plt Count MPV Neut % (Auto) Lymph % (Auto) Cottonwood % (Auto) Eos % (Auto) Baso % (Auto) Nucleat RBC Rel Count Neut # (Auto) Lymph # (Auto) Cottonwood # (Auto) Eos # (Auto) Baso # [...] signed by Manuel Barraza MD> 02/06/24 0936 [facility] Work Phone: 1(142) 878-267207-28-2024 History and physical note Author Sushant Cordon [facility] February 06, 2024 2:52amNote Date/TimeJuly 2023 2:22[place] [address] Hospitalist H&P Signed Patient: Manolo Roche MR#: [id number] : 1935 Acct:[id number] Age/Sex: 88 / M Adm Date: 4 Loc: Room: [address] [place] [address] Type: ADM IN Attending Dr: Sushant Cordon [...] for him after recent hospital stay in [place]. In the emergency room the reason why the patient was hospitalized in [place] or where was unknown to the patient [...] historians, which could be because of the acquisition professional hours. He describes that yesterday was terrible [...] state that [facility] he beganusing Aleve due to the discomfort theLifeVest was causing on his back. He doessay I never took more than prescribed. He does recall getting the endoscopy by Dr. Shearer back in November but did not really seem to fully comprehend the results. He says that now a [facility] hospital was he originally went to [facility] where theydid an EKG and then [facility]. At [facility] he does not know all the [...] mentioned elsewhere in the documentation. [facility] Medical History (Updated 02/06/24 @ 02:47 by [...] days #30 tabs 05/07/23 [Rx Confirmed 02/05/24] srrnpi-lviycvww-tulkmoc 24,000-76,000-120,000 unit capsule,delayed rel (Creon) 2cap PO [...] unit subcut HS 08/31/23 [History Confirmed 10/28/23] srgqlwrfphxh-heiyvdbg-hrlgtz tablet (Multivitamin 50 Plus tablet) 1 tab [...] 90 days #180tabs 11/11/23 [Rx Confirmed 10/28/23] pvowcc-jsjikjle-vpxfzjy 24,000-76,000-120,000 unit capsule,delayed rel (Creon) 1cap PO [...] well conversant for his age and the acquisition professional hour. He is wearing the gamigo. Jean Paul continuous glucose monitoring device on [...] % (Auto) 16.3 % (.) 02/05/24 19:34 Cottonwood % (Auto) 4.8 % (.) 02/05/24 19:34 Eos % (Auto) 0.2 % (.) 02/05/24 19:34 Baso % (Auto) 0.4 % (.) 02/05/24 19:34 Nucleat RBC Rel Count 0.1 /100 WBC (0-0.5) 02/05/24 19:34 Neut # (Auto) 7.0 x10E3/uL (1.8-7.7) 02/05/24 19:34 Lymph # (Auto) 1.5 x10E3/uL (1.00-4.8) 02/05/24 19:34 Cottonwood # (Auto) 0.4 x10E3/uL (0.0-0.8) 02/05/24 19:34 [...] <Electronically signed by Sushant Cordon DO> 02/06/24251 [facility] Work Phone: 1([phone]) 665-556104-11-2024 Evaluation note* Author Alberto Shearer [facility] HospitalAuthoredApril 2023 8:04km20-hqop-zbf man with history of coronary artery disease s/p stent placement on 07/16/2023 who was recently hospitalized for melena s/p EGD with control of bleeding who came today for follow-up. 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 He will follow up with primary Cardiology next week [facility] Work Phone: 1([phone]) 220-340502-05-2024 Miscellaneous Notes* Assessment & Plan Note - [...] Problem(s): ASHD (arteriosclerotic heart disease) Jun 2023 [facility] presented due to mechanical fall. Incidental troponin elevations Echo EF 40-45% Cath: two-vessel disease; ef 40% anterior hypokinesis Elective PCI: Jul LAD: unsuccessful attempt - MATERIAL COMBINER oDiag PCI/Mark 3.5 x 18mm Daily activity < 4 METs documented in this encounterWright-Patterson [facility] Center Work Phone: [phone]) [phone] Evaluation + Plan note* Assessment & Plan Note - JAMIE Miramontes - 08/16/2023 2:37 PM ESTAssociated Problem(s): ASHD (arteriosclerotic heart disease) Jun 2023 [facility] presented due to mechanical fall. Incidental troponin elevations Echo EF 40-45% Cath: two-vessel disease; ef 40% anterior hypokinesis Elective PCI: Jul LAD: unsuccessful attempt - MATERIAL COMBINER oDiag PCI/Huron 3.5 x 18mm Daily activity < 4 METs [facility] Work Phone: [phone]) 639-653602-05-2024 History of Present illness Narrative* JAMIE Miramontes [...] to date. Will be seeking POCfrom primary truss maker. Patient reports that overall has complaint(s) of [...] to Plavix. Will schedule follow-up with primary truss maker Dr. Perez next week. Review of Systems [...] Assessment: ASHD (arteriosclerotic heart disease) Jun 2023 [facility] presented due to mechanical fall. Incidental troponin elevations Echo EF 40-45% Cath: two-vessel disease; ef 40% anterior hypokinesis Elective PCI: Jul LAD: unsuccessful attempt - MATERIAL COMBINER oDiag PCI/Mark 3.5 x 18mm Daily activity [...] to the office Sammy Berman MSN, JAMIE, PMHNP-[facility] Please excuse any errors in grammar or translation related to this dictation. Voice recognition software was utilized to prepare this document. documented in this encounterW[facility]-Pat[facility] Center Work Phone: 1([phone]) 624-675602-05-2024 Instructions* Patient Instructions* JAMIE Miramontes - 08/16/2023 [...] medications to the office documented in this encounterWright[facility] Work Phone: [phone]) 293-409601-05-2024 Discharge summary Author Federico Ryan [facility] July 16, 2023 4:09pmNote Date/TimeJan2023 4:06pmChristopher Ville [id number] Discharge Summary Signed Patient: Manolo Roche MR#: [id number] : 1935 Acct:[id number] Age/Sex: 88 / M Adm Date: 4 [...] the LAD with 3.5 x 18 mm Huron stent 5. Chronic total occlusion proximal/mid LAD [...] branch. LAD was attempted and deemed a MATERIAL COMBINER and therefore aborted, diagonal branch was stented with a 3.5 x 18 mm Huron stent without complications Patient will be discharged [...] % (Auto) 75.7, Lymph % (Auto) 8.4, Cottonwood % (Auto) 15.1, Eos % (Auto) 0.3, Baso % (Auto) 0.5, Nucleat RBC Rel Count 0.1, Neut # (Auto) 6.3, Lymph # (Auto) 0.7 L, Cottonwood # (Auto) 1.3 H, Eos # (Auto) [...] doctor or pharmacist, without first calling the truss maker who implanted the stent. If you require [...] weight lifting, stair steppers, etc. until the truss maker approves these activities. Check with the truss maker on your first follow-up visit. CALL YOUR PHYSICIAN at [phone]: -If bleeding should occur from the catheter insertion site- apply pressure to the site then immediately call us. -Report any fever, redness, drainage, increased swelling, or firmness at the catheter insertion site. Some bruising or slight swelling may be present at thetime of discharge. -Should arm or leg become cold, numb, white, or blue, contact the truss maker immediately. -IF you should experience episodes of [...] is recommended. Please call Central Scheduling at [phone] to schedule your appointment.] The attending truss maker or [facility] nurse clinician should provide you with specific instructions regarding activity, diet, medications, and further follow up for you. Follow the medication instructions provided on your discharge. If the dosages and instructions on this sheet differ from the dosage and instructions on the bottle, follow the instructions on the bottle. [facility] is not responsible for incorrect prescription [...] 30 Days Qty: 30 0RF Follow Up: [facility] [Outside] - 08/16/23 2:00 pm Documented By: Federico Davis DO 07/16/23 1602 Signed By: <Electronically signed by Federico Davis DO> 07/16/23 1609 [facility] Work Phone: [phone] Procedure noteGerman Hospital11-14-2023 History of Present illness Narrative* Govind [...] Future 3. NSTEMI (non-ST elevated myocardial infarction) ([facility]/HCC) - Follow Up In Cardiology; Future 4. Essential hypertension 5. Diabetes mellitus type II, non insulin dependent ([facility]) 6. Closed fracture of right hip, initial encounter ([facility]) documented in this encounterW[facility] Work Phone: 1([phone]) 473-226011-14-2023 Instructions* Patient Instructions* Lori Pelayo LPN - [...] time of your visit. documented in this encounterWright-Patterson [facility] Center Work Phone: 1(703) 312-373911-10-2023 Evaluation note* Encounter Date Diagnosis Assessment Notes Treatment Notes Treatment Clinical Notes May, Closed displaced int ertrochanteric fracture of right femur, initial encounter (ICD-10 - S72.141A) Radiographs of right hip was reviewed with the patient today, along with a physical examination. Patient should continue with PT. Continue use of pain medication to control pain. Ibetor Other 10-27-2023 Progress note Author Fredi Medrano [facility] May 07, 2023 12:48pmNote Date/TimeOctober 2022 12:36pm[place] [address] Physiatry(Rehab) Progress Note Signed Patient: Manolo Roche MR#: [id number] : 1935 Acct:[id number] Age/Sex: 88 / M Adm Date: 3 Loc: Room: [address] [place] [address] Type: ADM IN Attending Dr: Fredi Medrano [...] right hip fracture on 04/30/[address] Cnorad. Postop he is to weight- bearas tolerated [...] mg 05/03/23 16:59 Bisacodyl 10 Mg Supp.Rect PA 05/02/24 16:58 DAILY PRN Constipation Calcium Carbonate [...] 16:59 Docusate Enema 283 Mg/5 Ml Enema PA 05/02/24 16:58 DAILY PRN Constipation Enoxaparin Sodium [...] 05/02/24 16:59 6 units TID.WITH.MEALS [facility] Administration Protocol Insulin Aspart 0 units 05/03/23 18:00 05/07/23 12:13 Insulin Aspart 300 Units/3 Ml Insuln.Pen SUBCUT 05/02/24 17:59 2 units ACHS [facility] Administration Protocol Insulin Glargine 7 units [...] Code(s): I25.10 - Atherosclerotic heart disease of muckleshoot coronary artery without angina pectoris Status: Acute [...] Code(s): I25.10 - Atherosclerotic heart disease of m[place] coronary artery without angina pectoris Status: Acute (9) Postoperative pain, acute, hip: Code(s): G89.18 - Other acute postprocedural pain; M25.559 - Pain in unspecified hip Status: Acute Plan 88-year-old male presenting to acute inpatient rehabilitation unit with functional impairments secondary to right hip fracture s/p repair. Hospital course complicated by non-[place] troponin elevation. Hewas found to have two-vessel [...] equipment to enhance the patient's a functional episcopalian Ensure adequate nutrition and hydration Sleep no issues Pain: Continue current regimen. Discharge planning Home with in 7 to 10 days. I spent greater than 15 minutes for services, including zzpw-be-yhoc encounter with the patient, discussion of the case, plan of care, and exam; and kinznim-qs-rlbc activities, such as reviewing pertinent medical economics consultant documentation, recent therapy notes, laboratory and radiology studies, and discussion of case with care team including physician, nursing, case loader operator, and therapists. More than 50 % of time was spent on patient/family counseling or coordination ofcare. Plan: I completed a substantive portion of this encounter, the medical decision makingportion of this note in its entirety, including Allied health note review, nursing note review, medical economics consultant note review,discussion with nursing and case management, and more than 50% of my time was spent on counseling and coordination of care, time spent 25 minutes Patient was personally seen by me, Dr. Medrano, on the day of encounter, reviewed the history and the relevant portions of the chart, including current orders, allied health and medical economics consultant notes, labs/imaging and performed smyth elements of exam and I formulated the plan of care and facilitated the medical decision making. Documented By: Fredi Medrano MD 1234 Signed By: <Electronically signed by Fredi Medrano MD> 05/07/23 1248 [facility] Work Phone: 1([phone]) 306-952010-26-2023 Progress note Author Fredi Medrano [facility] May 06, 2023 2:46pmNote Date/TimeOctober 2022 12:53pm[place] [address] Physiatry(Rehab) Progress Note Signed Patient: Manolo Roche MR#: [id number] : 1935 Acct:[id number] Age/Sex: 88 / M Adm Date: 3 Loc: Room: [address] [place] [address] Type: ADM IN Attending Dr: Fredi Medrano [...] mg 05/03/23 16:59 Bisacodyl 10 Mg Supp.Rect PA 05/02/24 16:58 DAILY PRN Constipation Calcium Carbonate [...] 16:59 Docusate Enema 283 Mg/5 Ml Enema PA 05/02/24 16:58 DAILY PRN Constipation Enoxaparin Sodium [...] 05/02/24 16:59 7 units TID.WITH.MEALS [facility] Administration Protocol Insulin Aspart 0 units 05/03/23 18:00 05/06/23 06:38 Insulin Aspart 300 Units/3 Ml Insuln.Pen SUBCUT 05/02/24 17:59 Not Given ACHS [facility] Protocol Insulin Glargine 7 units 05/03/23 [...] mg DAILY TAVIA Administration Assessment/Plan <Teena Victoria, DOCUMENTATION ENGINEER - Last Filed: 05/06/23 13:14> Assessment/Plan (1) Closed intertrochanteric fracture of right hip: Code(s): S72.141A - Displaced intertrochanteric fracture of right femur, initial encounter for closed fracture Status: Acute (2) CAD (coronary artery disease): Code(s): I25.10 - Atherosclerotic heart disease of muck[place] coronary artery without angina pectoris Status: Acute [...] Code(s): I25.10 - Atherosclerotic heart disease of m[place] coronary artery without angina pectoris Status: Acute (9) Postoperative pain, acute, hip: Code(s): G89.18 - Other acute postprocedural pain; M25.559 - Pain in unspecified hip Status: Acute Plan 88-year-old male presenting to acute inpatient rehabilitation unit with functional impairments secondary to right hip fracture s/p repair. Hospital course complicated by non[place] trop[place] elevation. Hewas found to have two-vessel [...] equipment to enhance the patient's a functional episcopalian Ensure adequate nutrition and hydration Sleep no issues Pain: Continue current regimen. Discharge planning Home with in 7 to 10 days. I spent greater than 15 minutes for services, including opdk-ou-wtfl encounter with the patient, discussion of the case, plan of care, and exam; and eewneyk-vs-uinh activities, such as reviewing pertinent medical economics consultant documentation, recent therapy notes, laboratory and radiology studies, and discussion of case with care team including physician, nursing, case loader operator, and therapists. More than 50 % [...] the chart, including currentorders, allied health and medical economics consultant notes, labs/imaging and plan of care as above. Documented By: Teena Victoria APRN 05/06/23 1 250 Signed By: <Electronically signed by AMADA Victoria> 05/06/23 1314 <Electronically signed by Fredi Medrano MD> 05/06/23 1446 [facility] Work Phone: 1([phone]) 755-789310-26-2023 Consult note Author Vidya Robert [facility] May 06, 2023 1:15pmNote Date/TimeOct2022 3:49pm[place] [address] Hospitalist Consult Note Signed Patient: Manolo Roche MR#: [id number] : 1935 Acct:[id number] Age/Sex: 88 / M Adm Date: 3 Loc: Room: 8E9089-5 Type: ADM IN Attending Dr: Fredi Medrano [...] noted below or in HPI [facility] Medical History (Updated 05/04/23 @ 16:15 by [...] Allergies Allergy (Verified 04/28/23 12:20) Home Medications suvsmr-velfiizu-jeornvy 24,000-76,000-120,000 unit capsule,delayed rel (Creon) 2cap PO [...] mg 05/03/23 16:59 Bisacodyl 10 Mg Supp.Rect PA 05/02/24 16:58 DAILY PRN Constipation Calcium Carbonate [...] 16:59 Docusate Enema 283 Mg/5 Ml Enema PA 05/02/24 16:58 DAILY PRN Constipation Enoxaparin Sodium [...] % (Auto) 64.9, Lymph % (Auto) 23.0, [place] % (Auto) 9.9, Eos % (Auto) 1.5, Baso % (Auto) 0.7, Nucleat RBC Rel Count 0.2, Neut # (Auto) 4.6, Lymph # (Auto) 1.6, [place] # (Auto) 0.7, Eos # (Auto) 0.1, [...] Documented By: Nidia Wright APRN 04/12 11/01 6579 Signed By: <Electronically signed by AMADA Wright> 05/05/23 3434 <Electronically signed by Vidya Robert MD> 05/06/23 1318 [facility] Work Phone: 1(737) 727-511310-25-2023 Progress note Author Fredi Medrano [facility] May 05, 2023 1:10pmNote Date/TimeOctober 2022 1:11pm[place] [address] Physiatry(Rehab) Progress Note Signed Patient: Manolo Roche MR#: [id number] : 1935 Acct:[id number] Age/Sex: 88 / M Adm Date: 3 Loc: Room: [address] [place] [address] Type: ADM IN Attending Dr: Fredi Medrano [...] mg 05/03/23 16:59 Bisacodyl 10 Mg Supp.Rect PA 05/02/24 16:58 DAILY PRN Constipation Calcium Carbonate [...] 16:59 Docusate Enema 283 Mg/5 Ml Enema PA 05/02/24 16:58 DAILY PRN Constipation Enoxaparin Sodium [...] Code(s): I25.10 - Atherosclerotic heart disease of [place] coronary artery without angina pectoris Status: Acute [...] Code(s): I25.10 - Atherosclerotic heart disease of [place] coronary artery without angina pectoris Status: Acute (9) Postoperative pain, acute, hip: Code(s): G89.18 - Other acute postprocedural pain; M25.559 - Pain in unspecified hip Status: Acute Plan 88-year-old male presenting to acute inpatient rehabilitation unit with functional impairments secondary to right hip fracture s/p repair. Hospital course complicated by non[place] trop[place] elevation. Hewas found to have two-vessel [...] equipment to enhance the patient's a functional episcopalian Ensure adequate nutrition and hydration Sleep no issues Pain: Continue current regimen. Discharge planning Home with in 7 to 10 days. Plan: I completed a substantive portion of this encounter, the medical decision makingportion of this note in its entirety, including Allied health note review, nursing note review, medical economics consultant note review,discussion with nursing and case management, and more than 50% of my time was spent on counseling and coordination of care, time spent 25 minutes Patient was personally seen by me, Dr. Medrano, on the day of encounter, reviewed the history and the relevant portions of the chart, including current orders, allied health and medical economics consultant notes, labs/imaging and performed smyth elements of exam and I formulated the plan of care and facilitated the medical decision making. Documented By: Fredi Medrano MD 1308 Signed By: <Electronically signed by Fredi Medrano MD> 05/05/23 1310 [facility] Work Phone: 1(959) 942-566910-25-2023 History and physical note Author Fredi Medrano [facility] May 05, 2023 10:01amNote Date/TimeOct2022 11:35[place] [address] Physiatry (Rehab) H&P Signed Patient: Manolo Roche MR#: [id number] : 1935 Acct:[id number] Age/Sex: 88 / M Adm Date: 3 Loc: Room: [address] [place] [address] Type: ADM IN Attending Dr: Fredi Medrano [...] Does not use assistive devices. [facility] Medical History Anxiety and depression BPH (benign [...] 12:20) Home and Active Meds: Home Medications ayfflt-wdhpadum-aehhhyl 24,000-76,000-120,000 unit capsule,delayed rel (Creon) 2cap PO [...] Bisacodyl (Bisacodyl 10 Mg Supp.Rect) 10 mg PA DAILY PRN PRN Reason: Constipation Stop: 05/02/24 [...] Enema 283 Mg/5 Ml Enema) 283 mg PA DAILY PRN PRN Reason: Constipation Stop: 05/02/24 16:58 Enoxaparin Sodium (Enoxaparin 40 Mg/0.4 Ml Syringe) 40 mg SUBCUT DAILY@1000 [facility] Stop: 05/03/24 09:59 Insulin Aspart (Insulin Aspart 300 Units/3 Ml Insuln.Pen) 0 units SUBCUT TID.WITH.MEALS [facility]; Protocol Stop: 05/02/24 16:59 Last Admin: 05/04/23 08:27 Dose: 7 units Insulin Aspart (Insulin Aspart 300 Units/3 Ml Insuln.Pen) 0 units SUBCUT ACHS [facility]; Protocol Stop: 05/02/24 17:59 Last Admin: 05/04/23 08:27 Dose: 1 units Insulin Glargine (Insulin Glargine 300 Units/3 Ml Insuln.Pen) 7 units SUBCUT BID [facility] Stop: 05/02/24 20:59 Last Admin: 05/04/23 [...] Tablet) 30 mg PO DAILY [facility] Stop: 05/03/24 08:59 Last Admin: 05/04/23 [...] Cap.Er.24h) 0.4 mg PO DAILY [facility] Stop: 05/03/24 08:59 Last Admin: 05/04/23 08:10 Dose: 0.4 mg Triamcinolone Acetonide (Triamcinolone 0.1% Cream 15 Gm Tube) 1 applic TOPICAL QID PRN PRN Reason: Irritation Stop: 05/02/24 17:10 Valsartan (Valsartan 80 Mg Tablet) 80 mg PO DAILY [facility] Stop: 05/03/24 08:59 Last Admin: 05/04/23 [...] % (Auto) 64.9 Lymph % (Auto) 23.0 [place] % (Auto) 9.9 Eos % (Auto) 1.5 Baso % (Auto) 0.7 Nucleat RBC Rel Count 0.2 Neut # (Auto) 4.6 Lymph # (Auto) 1.6 [place] # (Auto) 0.7 Eos # (Auto) 0.1 [...] MPV Neut % (Auto) Lymph % (Auto) [place] % (Auto) Eos % (Auto) Baso % (Auto) Nucleat RBC Rel Count Neut # (Auto) Lymph # (Auto) [place] # (Auto) Eos # (Auto) Baso # [...] 24 hour daily monitoring and intervention from Cleaning Specialist as well as other consulting physicians including internal medicine as well as 24 hour daily kiln cleaner nursing - for medical safe / optimal [...] Code(s): I25.10 - Atherosclerotic heart disease of [place] coronary artery without angina pectoris Status: Acute [...] Code(s): I25.10 - Atherosclerotic heart disease of [place] coronary artery without angina pectoris Status: Acute (9) Postoperative pain, acute, hip: Code(s): G89.18 - Other acute postprocedural pain; M25.559 - Pain in unspecified hip Status: Acute Plan 88-year-old male presenting to acute inpatient rehabilitation unit with functional impairments secondary to right hip fracture s/p repair. Hospital course complicated by [place] trop[place] elevation. Hewas found to have two-vessel [...] equipment to enhance the patient's a functional episcopalian Ensure adequate nutrition and hydration Sleep no issues Pain: Continue current regimen. Discharge planning Home with in 7 to 10 days. I spent greater than 45 minutes for services, including mqjq-cr-vcty encounter with the patient, discussion of the case, plan of care, and exam; and frbteka-pl-twnr activities, such as reviewing pertinent medical economics consultant documentation, recent therapy notes, laboratory and radiology studies, and discussion of case with care team including physician, nursing, case loader operator, and therapists. More than 50 % of time was spent on patient/family counseling or coordination ofcare. Plan: I completed a substantive portion of this encounter, the medical decision makingportion of this note in its entirety, including Allied health note review, nursing note review, medical economics consultant note review,discussion with nursing and case management, and more than 50% of my time was spent on counseling and coordination of care, time spent 70 minutes Patient was personally seen by me, Dr. Medrano, on the day of encounter, within 24 hours of rehab admission, reviewed the history and the relevant portions of the chart, including current orders, allied health and medical economics consultant notes, labs/imaging and performed smyth elements of exam and I formulatedthe planof care and facilitated the medical decision making. Documented By: Teena Victoria APRN 05/04/23 1 122 Signed By: <Electronically signed by AMADA Victoria> 05/04/23 1209 <Electronically signed by Fredi Medrano MD> 05/05/23 1001 [facility] Work Phone: 1(585) 935-778210-23-2023 Progress note Author Ashwini Conrad [facility] May 03, 2023 12:02pmNote Date/TimeOct2022 11:[address] [address] Orthopedic Progress Note Signed Patient: Manolo Roche MR#: [id number] : 1935 Acct:[id number] Age/Sex: 88 / M Adm Date: 3 Loc: 4N Room: [address] [place] [address] Type: ADM IN Attending Dr: Humberto Diaz [...] Code(s): I25.10 - Atherosclerotic heart disease of [place] coronary artery without angina pectoris Status: Acute [...] signed by Ashwini Conrad MD> 05/03/23 1202 [facility] Work Phone: 1([phone]) 305-874310-22-2023 Progress note Author Sushant Cordon [facility] May 02, 2023 2:35pmNote Date/TimeOct2022 2:35pm[place] [address] Hospitalist Progress Note Signed Patient: Manolo Roche MR#: [id number] : 1935 Acct:[id number] Age/Sex: 88 / M Adm Date: 3 Loc: N Room: [address] [place] [address] Type: ADM IN Attending Dr: Sushant Cordon [...] mg 04/28/23 17:19 Bisacodyl 10 Mg Supp.Rect PA 04/27/24 17:18 DAILY PRN Constipation Calcium Carbonate 1 tab 04/29/23 08:00 05/02/23 12:16 Calcium Carbonate/Vitamin D3 500 Mg/200 Unit Tablet PO 04/28/24 07:59 1 tab TID.WITH.MEALS ATVIA Administration Dextrose 0 gm 04/28/23 17:14 04/30/23 [...] Insuln.Pen SUBCUT 05/01/24 16:59 TID.WITH.MEALS [facility] Protocol Insulin Glargine 7 units 05/01/23 [...] additional questions. Documented By: Sushant Cordon DO 7611 Signed By: <Electronically signed by Sushant Cordon DO> 05/02/23 1435 [facility] Work Phone: 1(655) 367-336010-22-2023 Progress note Author Ashwini Conrad [facility] May 02, 2023 2:12pmNote Date/TimeOctober 2022 2:12pm[place] [address] Orthopedic Progress Note Signed Patient: Manolo Roche MR#: [id number] : 1935 Acct:[id number] Age/Sex: 88 / M Adm Date: 3 Loc: 4N Room: [address] [place] [address] Type: ADM IN Attending Dr: Sushant Cordon [...] MPV Neut % (Auto) Lymph % (Auto) [place] % (Auto) Eos % (Auto) Baso % (Auto) Nucleat RBC Rel Count Neut # (Auto) Lymph # (Auto) [place] # (Auto) Eos # (Auto) Baso # [...] % (Auto) 71.9 Lymph % (Auto) 13.7 [place] % (Auto) 13.5 Eos % (Auto) 0.8 Baso % (Auto) 0.1 Nucleat RBC Rel Count 0.0 Neut # (Auto) 6.2 Lymph # (Auto) 1.2 [place] # (Auto) 1.2 H Eos # (Auto) [...] MPV Neut % (Auto) Lymph % (Auto) [place] % (Auto) Eos % (Auto) Baso % (Auto) Nucleat RBC Rel Count Neut # (Auto) Lymph # (Auto) [place] # (Auto) Eos # (Auto) Baso # (Auto) PHA Creatinine Clear Sodium Potassium Chloride Carbon Dioxide Anion Gap BUN Creatinine Est GFR (CKD-EPI) Glucose POC Glucose 376 POC Glucose Comment Calcium Triglycerides Cholesterol LDL Cholesterol, Calc VLDL Cholesterol HDL Cholesterol Cholesterol/HDL Ratio Assessment / Plan Assessment and plan (1) Two-vessel coronary artery disease: Code(s): I25.10 - Atherosclerotic heart disease of [place] coronary artery without angina pectoris Status: Acute [...] signed by Ashwini Conrad MD> 05/02/23 1412 [facility] Work Phone: 1(353) 697-531610-22-2023 Progress note Author Harsh Martines [facility] May 02, 2023 10:49amNote Date/TimeOct2022 10:[place] [id number] Cardiology Progress Note Signed Patient: Manolo Roche MR#: [id number] : 1935 Acct:[id number] Age/Sex: 88 / M Adm Date: 3 Loc: 4N Room: 4J6642-0 Type: ADM IN Attending Dr: Sushant Cordon [...] is to be determined by her primary truss maker and Dr. Davis Exam Physical Exam Vital [...] MPV Neut % (Auto) Lymph % (Auto) [place] % (Auto) Eos % (Auto) Baso % (Auto) Nucleat RBC Rel Count Neut # (Auto) Lymph # (Auto) [place] # (Auto) Eos # (Auto) Baso # [...] % (Auto) 71.9 Lymph % (Auto) 13.7 [place] % (Auto) 13.5 Eos % (Auto) 0.8 Baso % (Auto) 0.1 Nucleat RBC Rel Count 0.0 Neut # (Auto) 6.2 Lymph # (Auto) 1.2 [place] # (Auto) 1.2 H Eos # (Auto) [...] MPV Neut % (Auto) Lymph % (Auto) [place] % (Auto) Eos % (Auto) Baso % (Auto) Nucleat RBC Rel Count Neut # (Auto) Lymph # (Auto) [place] # (Auto) Eos # (Auto) Baso # [...] Code(s): I25.10 - Atherosclerotic heart disease of [place] coronary artery without angina pectoris Status: Acute [...] coronary intervention Documented By: Harsh Martines MD, [facility] 3 1047 Signed By: <Electronically signed by MD JOAO Martines> 05/02/23 1049 [facility] Work Phone: 1(110) 467-921210-21-2023 Progress note Author Sushant Cordon [facility] May 01, 2023 3:13pmNote Date/TimeOct2022 3:09pm[place] [address] Hospitalist Progress Note Signed Patient: Manolo Roche MR#: [id number] : 1935 Acct:[id number] Age/Sex: 88 / M Adm Date: 3 Loc: 4N Room: [address] [place] [address] Type: ADM IN Attending Dr: Sushant Cordon [...] mg 04/28/23 17:19 Bisacodyl 10 Mg Supp.Rect PA 04/27/24 17:18 DAILY PRN Constipation Calcium Carbonate [...] 04/27/24 21:59 Not Given TID.WM.HS [facility] Protocol Insulin Glargine 7 units 05/01/23 [...] signed by Sushant Cordon DO> 05/01/23 1513 [facility] Work Phone: 1(910) 648-972810-21-2023 Progress note Author Harsh Martines [facility] May 01, 2023 12:24pmNote Date/TimeOct2022 12:21pm[place] [address] Cardiology Progress Note Signed Patient: Manolo Roche MR#: [id number] : 1935 Acct:[id number] Age/Sex: 88 / M Adm Date: 3 Loc: 4N Room: [id number] Type: ADM IN Attending Dr: Sushant Cordon [...] MPV Neut % (Auto) Lymph % (Auto) [place] % (Auto) Eos % (Auto) Baso % (Auto) Nucleat RBC Rel Count Neut # (Auto) Lymph # (Auto) [place] # (Auto) Eos # (Auto) Baso # [...] MPV Neut % (Auto) Lymph % (Auto) [place] % (Auto) Eos % (Auto) Baso % (Auto) Nucleat RBC Rel Count Neut # (Auto) Lymph # (Auto) [place] # (Auto) Eos # (Auto) Baso # [...] MPV Neut % (Auto) Lymph % (Auto) [place] % (Auto) Eos % (Auto) Baso % (Auto) Nucleat RBC Rel Count Neut # (Auto) Lymph # (Auto) [place] # (Auto) Eos # (Auto) Baso # [...] MPV Neut % (Auto) Lymph % (Auto) [place] % (Auto) Eos % (Auto) Baso % (Auto) Nucleat RBC Rel Count Neut # (Auto) Lymph # (Auto) [place] # (Auto) Eos # (Auto) Baso # [...] % (Auto) 68.2 Lymph % (Auto) 16.8 [place] % (Auto) 14.1 Eos % (Auto) 0.6 Baso % (Auto) 0.3 Nucleat RBC Rel Count 0.1 Neut # (Auto) 6.0 Lymph # (Auto) 1.5 [place] # (Auto) 1.2 H Eos # (Auto) [...] MPV Neut % (Auto) Lymph % (Auto) [place] % (Auto) Eos % (Auto) Baso % (Auto) Nucleat RBC Rel Count Neut # (Auto) Lymph # (Auto) [place] # (Auto) Eos # (Auto) Baso # [...] Code(s): I25.10 - Atherosclerotic heart disease of [place] coronary artery without angina pectoris Status: Acute [...] coronary intervention Documented By: Harsh Martines MD, [facility] 3 1220 Signed By: <Electronically signed by MD JOAO Martines> 05/01/23 1224 [facility] Work Phone: 1(690) 813-987910-21-2023 Progress note Author Ashwini Conrad [facility] May 01, 2023 11:31amNote Date/TimeOctober 2022 11:31[place] [address] Orthopedic Progress Note Signed Patient: Manolo Roche MR#: [id number] : 1935 Acct:[id number] Age/Sex: 88 / M Adm Date: 3 Loc: 4N Room: [address] [place] [address] Type: ADM IN Attending Dr: Sushant Cordon [...] % (Auto) 79.2 Lymph % (Auto) 5.9 [place] % (Auto) 14.6 Eos % (Auto) 0.0 Baso % (Auto) 0.3 Nucleat RBC Rel Count 0.1 Neut # (Auto) 7.4 Lymph # (Auto) 0.6 L [place] # (Auto) 1.4 H Eos # (Auto) [...] MPV Neut % (Auto) Lymph % (Auto) [place] % (Auto) Eos % (Auto) Baso % (Auto) Nucleat RBC Rel Count Neut # (Auto) Lymph # (Auto) [place] # (Auto) Eos # (Auto) Baso # [...] MPV Neut % (Auto) Lymph % (Auto) [place] % (Auto) Eos % (Auto) Baso % (Auto) Nucleat RBC Rel Count Neut # (Auto) Lymph # (Auto) [place] # (Auto) Eos # (Auto) Baso # [...] MPV Neut % (Auto) Lymph % (Auto) [place] % (Auto) Eos % (Auto) Baso % (Auto) Nucleat RBC Rel Count Neut # (Auto) Lymph # (Auto) [place] # (Auto) Eos # (Auto) Baso # [...] MPV Neut % (Auto) Lymph % (Auto) [place] % (Auto) Eos % (Auto) Baso % (Auto) Nucleat RBC Rel Count Neut # (Auto) Lymph # (Auto) [place] # (Auto) Eos # (Auto) Baso # [...] % (Auto) 68.2 Lymph % (Auto) 16.8 [place] % (Auto) 14.1 Eos % (Auto) 0.6 Baso % (Auto) 0.3 Nucleat RBC Rel Count 0.1 Neut # (Auto) 6.0 Lymph # (Auto) 1.5 [place] # (Auto) 1.2 H Eos # (Auto) [...] MPV Neut % (Auto) Lymph % (Auto) [place] % (Auto) Eos % (Auto) Baso % (Auto) Nucleat RBC Rel Count Neut # (Auto) Lymph # (Auto) [place] # (Auto) Eos # (Auto) Baso # [...] Code(s): I25.10 - Atherosclerotic heart disease of [place] coronary artery without angina pectoris Status: Acute [...] signed by Ashwini Conrad MD> 05/01/23 1131 [facility] Work Phone: 1(202) 933-186810-20-2023 Progress note Author Sushant Cordon [facility] April 30, 2023 9:13pmNote Date/TimeOct2022 9:13pm[place] [address] Hospitalist Progress Note Signed Patient: Manolo Roche MR#: [id number] : 1935 Acct:[id number] Age/Sex: 88 / M Adm Date: 3 Loc: 4N Room: 4P6956-1 Type: ADM IN Attending Dr: Sushant Cordon [...] mg 04/28/23 17:19 Bisacodyl 10 Mg Supp.Rect PA 04/27/24 17:18 DAILY PRN Constipation Calcium Carbonate [...] Syringe SUBCUT 04/30/24 09:59 DAILY@1000 [facility] Glucose 0 gm 04/28/23 17:14 04/30/23 [...] Lactated Ringers IV 04/29/24 16:44 Not Given .[id number] [facility] Cefazolin Sodium 1 gm in 50 [...] <Electronically signed by Sushant Cordon DO> 04/30/232112 [facility] Work Phone: 1(167) 493-705510-20-2023 Hospital Discharge instructions Additional Instructions Rehab to [...] high armed straight-backed chair. -May use toilet paper slitter on commode. -Continue to use walker or [...] OTHER -Any problems- Call the office at [phone] or return to Emergency Room. -If you are having excessive or persistent pain, swelling, fever (oral temp >101), yellow-green foul smelling drainage or bleeding from incision, excessive redness of incision, nausea, vomiting, or any other problems, you should first call your surgeon at [phone] for advice. If you are unable to contact your surgeon, seek help from a hospital emergency room. FOLLOW UP -Call my office the first business day after discharge and ask for assistance with post-discharge plans, and appointments.[facility] Work Phone: 1(222) 317-509710-20-2023 Progress note Author Anat Perez [facility] April 30, 2023 10:32amNote Date/TimeOct2022 10:32am[address] [address] Cardiology Progress Note Signed Patient: Manolo Roche MR#: [id number] : 1935 Acct:[id number] Age/Sex: 88 / M Adm Date: 3 Loc: 4N Room: 0I7358-3 Type: ADM IN Attending Dr: Sushant Cordon [...] events overnight. Denies chest pain or dyspnea. [facility] scheduledfor this AM (findings as below) Exam [...] MPV Neut % (Auto) Lymph % (Auto) [place] % (Auto) Eos % (Auto) Baso % (Auto) Nucleat RBC Rel Count Neut # (Auto) Lymph # (Auto) [place] # (Auto) Eos # (Auto) Baso # [...] MPV Neut % (Auto) Lymph % (Auto) [place] % (Auto) Eos % (Auto) Baso % (Auto) Nucleat RBC Rel Count Neut # (Auto) Lymph # (Auto) [place] # (Auto) Eos # (Auto) Baso # [...] % (Auto) 60.6 Lymph % (Auto) 22.0 [place] % (Auto) 16.4 Eos % (Auto) 0.6 Baso % (Auto) 0.4 Nucleat RBC Rel Count 0.1 Neut # (Auto) 5.4 Lymph # (Auto) 2.0 [place] # (Auto) 1.5 H Eos # (Auto) [...] MPV Neut % (Auto) Lymph % (Auto) [place] % (Auto) Eos % (Auto) Baso % (Auto) Nucleat RBC Rel Count Neut # (Auto) Lymph # (Auto) [place] # (Auto) Eos # (Auto) Baso # [...] MPV Neut % (Auto) Lymph % (Auto) [place] % (Auto) Eos % (Auto) Baso % (Auto) Nucleat RBC Rel Count Neut # (Auto) Lymph # (Auto) [place] # (Auto) Eos # (Auto) Baso # [...] 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 - Discussed with lap winder- Dr Davis regarding timing of intervention- given [...] signed by Anat Perez MD> 04/30/23 1032 [facility] Work Phone: 1(815) 154-393410-20-2023 [facility] Progress note Author Sushant Cordon [facility] April 29, 2023 6:28pmNote Date/TimeOct2022 6:28pm[place] [address] Hospitalist Progress Note Signed Patient: Manolo Roche MR#: [id number] : 1935 Acct:[id number] Age/Sex: 88 / M Adm Date: 3 Loc: 4N Room: [address] [place] [address] Type: ADM IN Attending Dr: Sushant Crodon DO Copies to: ~ Date of Service: [...] mg 04/28/23 17:19 Bisacodyl 10 Mg Supp.Rect PA 04/27/24 17:18 DAILY PRN Constipation Calcium Carbonate [...] Dextrose-Lactated Ringers IV 04/27/24 17:14 125 mls/hr .[id number] TAVIA Administration Lactated Ringer's 1,000 mls @ [...] <Electronically signed by Sushant Cordon DO> 04/29/231827 [facility] Work Phone: 1(221) 620-276110-19-2023 Consult note Author Anat Perez [facility] April 29, 2023 5:34pmNote Date/TimeOct2022 5:07pm[place] [address] Cardiology Consult Note Signed Patient: Manolo Roche MR#: [id number] : 1935 Acct:[id number] Age/Sex: 88 / M Adm Date: 3 Loc: 4N Room: [address] [place] [address] Type: ADM IN Attending Dr: Sushant Cordon [...] noted below or in HPI [facility] Medical History (Updated 04/29/23 @ 17:34 by [...] 18 unit subcutHS 04/28/23 [History Confirmed 04/28/23] qrnooc-umhrnuyd-rxcffon 24,000-76,000-120,000 unit capsule,delayed rel (Creon) 2cap PO [...] x10E3/uL Lymph # (Auto) 2.0 (1.00-4.8) x10E3/uL [place] # (Auto) 1.1 H (0.0-0.8) x10E3/uL Eos [...] @ 125 mls/hr IV .Q8H [facility] Rx#:[id number] Oral 0 / 0 0 / 0 [...] disease) prior to surgery. -Will plan for [facility] tomorrow for further evaluation/risk stratification. NPO past midnight. Documented By: Anat Perez MD 04/29/231703 Signed By: <Electronically signed by Anat Perez MD> 04/29/23 173 [facility] Work Phone: 1(468) 608-217410-18-2023 Consult note Author Ashwini Conrad [facility] April 28, 2023 6:47pmNote Date/TimeOct2022 6:43pm[place] [id number] Orthopedic Consult Note Signed Patient: Manolo Roche MR#: [id number] : 1935 Acct:[id number] Age/Sex: 88 / M Adm Date: 3 Loc: 4N Room: 2P2438-9 Type: ADM IN Attending Dr: Sushant Cordon [...] noted below or in HPI [facility] Medical History (Updated 04/28/23 @ 17:35 by [...] 18 unit subcutHS 04/28/23 [History Confirmed 04/28/23] auipes-eeubxnoy-sedomqt 24,000-76,000-120,000 unit capsule,delayed rel (Creon) 2cap PO [...] Appearance Clear, Urine pH 6.5, Ur Specific [place] Heart 1.009, Urine Protein Negative, Urine Glucose (UA) Normal, UrineKetones Negative, Urine Occult Blood Negative, Urine Nitrite Negative, Urine Bilirubin Negative, Urine Urobilinogen Normal, Ur Leukocyte Esterase Negative 04/28/23 13:20: B-Natriuretic Peptide 665.0 H 04/28/23 13:20: Troponin I High Sens 35.5 H 04/28/23 13:20: PHA Creatinine Clear 60.38, Sodium 136, Potassium 4.9, Chloride 101, Carbon Bohihsd69.4, Anion Gap 9.5, BUN 15, Creatinine 0.71, [...] % (Auto) 75.0, Lymph % (Auto) 14.8, Cottonwood % (Auto) 9.3, Eos % (Auto) 0.5, Baso % (Auto) 0.4, Nucleat RBC Rel Count 0.1, Neut # (Auto)7.3, Lymph # (Auto) 1.4, Cottonwood # (Auto) 0.9 H, Eos # (Auto) 0.0, Baso # (Auto) 0.0, Monocyte Dist Width 18.61 H & H 04/28/23 Range/Units 13:20 Hgb 11.5 L (13.0-17.0) g/dL Hct 34.8 L (38.8-50.0) % Coagulation 04/28/23 Range/Units 13:20 INR 1.0 All other labs are normal. Imaging & Diagnostic Results Imaging/Diagnostics: XRAY ([facility] 04/28/2023) Right FEMUR/RIGHT HIP/PELVIS: AP of the [...] <Electronically signed by Ashwini Conrad MD> 04/28/231846 [facility] Work Phone: 1(334) 892-348510-18-2023 History and physical note Author Sushant Cordon [facility] April 28, 2023 5:40pmNote Date/TimeOct2022 5:40pm[place] [address] Hospitalist H&P Signed Patient: Manolo Roche MR#: [id number] : 1935 Acct:[id number] Age/Sex: 88 / M Adm Date: 3 Loc: Room: 5J0632-5 Type: ADM IN Attending Dr: Sushant Cordon [...] a total pancreatectomy performed at the [facility] in [facility] about 3 years ago. This was [...] had what sounds like an EGD in [place] about 15 months ago with what sounds like some gastritis. Otherwise his past medical history seems to include prostate hypertrophy. Social history: He does smoke a cigar daily after dinner. In the past he smoked0.25 of a pack per day of cigarettes. He does drink wine daily with dinner. Heis mainly retired from [employer] here in [place]. He has continued to do other jobsever since his mcfp. Family history: A sister of an unspecified cancer. Another sibling ofwhat sounds like acute leukemia. Review of Systems Review of Systems Review of systems: 10 systems are reviewed and are negative except as mentioned elsewhere in the documentation. [facility] Medical History (Updated 04/28/23 @ 17:35 by [...] 18 unit subcutHS 04/28/23 [History Confirmed 04/28/23] qnabnb-fkzfhqwp-jliqqgl 24,000-76,000-120,000 unit capsule,delayed rel (Creon) 2cap PO [...] % (Auto) 14.8 % (.) 04/28/23 13:20 Cottonwood % (Auto) 9.3 % (.) 04/28/23 13:20 Eos % (Auto) 0.5 % (.) 04/28/23 13:20 Baso % (Auto) 0.4 % (.) 04/28/23 13:20 Nucleat RBC Rel Count 0.1 /100 WBC (0-0.5) 04/28/23 13:20 Neut # (Auto) 7.3 x10E3/uL (1.8-7.7) 04/28/23 13:20 Lymph # (Auto) 1.4 x10E3/uL (1.00-4.8) 04/28/23 13:20 Cottonwood # (Auto) 0.9 x10E3/uL (0.0-0.8) H 04/28/23 [...] pH 6.5 (5.0-9.0) 04/28/23 15:00 Ur Specific South Heart 1.009 (1.001-1.030) 04/28/23 15:00 Urine Protein Negative [...] did order an echocardiogram but the echocardiogram watch technician has likely gone home for the [...] signed by Sushant Cordon DO> 04/28/23 1740 [facility] Work Phone: 1(713) 258-906410-01-2023 Chief complaint+Reason for visit Narrative * Chief Complaint GI Bleed Fall GI Bleed Fall GI Bleed Fall GI Bleed Fall c spine fx nick,gi ulcer referral cervical follow up seen in pt/egd.lewis's esophagus 04/2023 [facility] dc Cath/PCIReason for VisitCAD (coronary artery disease) Fracture of C5 vertebra, closed Vertebral fracture, closed Barretts esophagus H pylori ulcer Helicobacter pylori (H. pylori) Barretts esophagus CAD (coronary artery disease) H pylori ulcer Helicobacter pylori (H. pylori) Hypertension [id number] Stomach ulcer [facility] Work Phone: 1(658) 974-310006-29-2022 History of Present illness Narrative* Courtney Singh - 01/07/2022 12:25 PM EDT CLINICAL PHARMACY NOTE: MEDS TO BEDS Total # of Prescriptions Filled: 3 The following medications were delivered to the patient: Sucralfate susp Amlodipine Pantoprazole Additional Documentation: Pharmacy dispensed all we had of the Sucralfate susp- will transfer the rest to the [facility] in [place], [place] $8.61 collected via [employer] * Jose Roberto Peñaloza MD - 01/06/2022 [...] 01/03/2022 3:25 PM EDT Occupational Therapy Facility/Department: [address] Occupational Therapy Initial Assessment Name: Manolo Roche : 1935 Date of Service: 01/03/2022 Chief Complaint Patient presents with Abdominal Pain ulcer Discharge Recommendations: Patient would benefit from continued therapy after discharge OT Equipment Recommendations Equipment Needed: Yes Mobility Devices: ADL Assistive Devices ADL Assistive Devices: Retail Seasonal Specialist;Long-handled Sponge;Long-handled Shoe Horn;Sock- Aid Hard;Grab Bars [...] Ambulation Assistance: Independent Transfer Assistance: Independent Active Metal Reed Tuner: Yes Mode of Transportation: [facility] Occupation: Retired Type of Occupation: Reports he has retired 4-5 times. Works on [employer] sometimes now debo wants. [employer]. Use to work for [employer]. Leisure & Hobbies: [employer] Additional Comments: 3-4 weeks post open heart [...] 12:40 PM EDT Physical Therapy Facility/Department: [address] [place] Physical Therapy Initial Assessment Name: [...] Ambulation Assistance: Independent Transfer Assistance: Independent Active Metal Reed Tuner: Yes Mode of Transportation: SUV Occupation: Retired Type of Occupation: Reports he has retired 4-5 times. 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 Pt did not have any belongings transferred with him from the OR. [facility] Work Phone: chief complaint+Reason for visit Narrative* Chief Complaint bp check I25.10 E61.1,K92.2 2 weeks bp 6 weeks evaluation for ICD evaluation for ICD HFC BP WITH ORTHO CardiomyopathyReason for VisitIron deficiency Ischemic cardiomyopathy Ischemic cardiomyopathy Ischemic cardiomyopathy Acute GI bleeding Ischemic cardiomyopathy [id number] Sinus bradycardia H pylori ulcer Iron deficiency Ischemic cardiomyopathy [id number] Ischemic cardiomyopathy [facility] Work Phone: Consult note Author Tru Yap [facility] May 03, 2023 3:17pmNote Date/TimeOct2022 2:59pm[place] [address] Physiatry (Rehab) Consult Note Signed Patient: Manolo Roche MR#: [id number] : 1935 Acct:[id number] Age/Sex: 88 / M Adm Date: 3 Loc: 4N Room: 0U6622-9 Type: ADM IN Attending Dr: Humberto Diaz [...] noted below or in HPI [facility] Medical History BPH (benign prostatic hyperplasia) Diabetes [...] 18 unit subcutHS 04/28/23 [History Confirmed 04/28/23] vzwfco-goqxgqru-ebovmcl 24,000-76,000-120,000 unit capsule,delayed rel (Creon) 2cap PO [...] bisacodyl 10 mg rectal suppository 10 mg PA DAILY PRN Constipation #0 ea 05/03/23 [Rx] [...] Code(s): I25.10 - Atherosclerotic heart disease of muckleshoot coronary artery without angina pectoris Status: Acute [...] at least 3 times weekly encounters with recreation professor for medical management and for plan of care review / changes. Plan: I completed a substantive portion of this encounter, the medical decision making portion of this note in its entirety, including Allied health note review, nursing note review, medical economics consultant note review, discussion with nursing and case management, and more than 50% of my time was spent on counseling and coordination of care, time spent 65 minutes Patient was personally seen by me, Dr. Yap, on the day of encounter, reviewed the history and therelevant portions of the chart, including current orders, allied health and medical economics consultant notes, labs/imaging and performed smyth elements of exam and I formulated the plan of care and facilitated the medical decision making. Documented By: Tru Yap MD 05/03/23 1456 Signed By: <Electronically signed by Tru Yap MD> 05/03/23 3814 [facility] Work Phone: Consult note Author Chuck Velasco [facility] HospitalNote Date/TimeJanuary 2024 4:52pm[place] [address] Cardiology Consult Note Signed Patient: Manolo Roche MR#: [id number] : 1935 Acct:[id number] Age/Sex: 89 / M Adm Date: 5 Loc: N Room: [address] [place] [address] Type: ADM INOo Attending Dr: Lisa Hidalgo [...] noted below or in HPI [facility] Medical History Type 1 diabetes mellitus CAD (coronary artery disease) Former smoker BPH (benign prostatic hyperplasia) Urinary frequency Cardiomyopathy wearing external defib Coronary artery disease involving muckleshoot coronary artery of muckleshoot heart withoutangina pectoris GI bleeding Dupuytren's contracture [...] days #30 tabs 05/07/23 [Rx Confirmed 07/16/24] tlajyd-yaacirpt-gvvyvrx 24,000-76,000-120,000 unit capsule,delayed rel (Creon) 2cap PO [...] tab PO DAILY 10/26/23 [History Confirmed 07/16/24] agjjyc-pzfsbudx-rcpvcut 24,000-76,000-120,000 unit capsule,delayed rel (Creon) 1cap PO [...] # (Auto) N/A Lymph # (Auto) N/A Cottonwood # (Auto) N/A Eos # (Auto) N/A [...] Code(s): I25.10 - Atherosclerotic heart disease of muckleshoot coronary artery without angina pectoris (4) S/P [...] H/o PUD, BPH, Anxiety, depression. Current smoker. [facility] 04/30/23 - Two-vessel coronary artery disease- 100% prox LAD occlusion; 80% D1; LCx has 50% prox stenosis with 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 Echo 04/28/23 - EF 40-45%, mild LVH, trace MR and TR. [facility] 07/16/22 - Successful PCI ostial/proximal LAD-diagonal branch; true MATERIAL COMBINER proximal/mid LAD (attempted wiring with balloon). ECHO in January 2024 at [facility]: EF 30-35% ECHO 03/09/2024: ECHO [...] call with any questions. Follow up with [facility] Cardiology as scheduled. Documented By: Chuck Velasco MD 01/03 1637 Signed By: <Electronically signed by Chuck Velasco MD> 07/17/24 1652 [facility] Work Phone: Discharge summary Author Humberto Diaz [facility] May 03, 2023 2:54pmNote Date/TimeOct2022 2:39pm[place] [address] Discharge Summary Signed Patient: Manolo Roche MR#: [id number] : 1935 Acct:[id number] Age/Sex: 88 / M Adm Date: 3 Loc: 4N Room: 3Y6805-[address]: Humberto Diaz MD Copies to: [...] 08:45 Actual Procedures p CL [facility] Vicente Perez MD Operation Date: 04/30/23 15:30 [...] Discharge Plan Discharge Plan Patient Disposition: Rehab [facility] Diet: Diabetic Additional Instructions: Rehab to manage: [...] high armed straight-backed chair. -May use toilet paper slitter on commode. -Continue to use walker or [...] OTHER -Any problems- Call the office at [phone] or return to Emergency Room. -If you are having excessive or persistent pain, swelling, fever (oral temp >101), yellow-green foul smelling drainage or bleeding from incision, excessive redness of incision, nausea, vomiting, or any other problems, you should first call your surgeon at [phone] for advice. If you are unable to [...] 0RF bisacodyl 10 mg Suppository 10 mg PA DAILY PRN (Reason: Constipation) Qty: 0 0RF [...] (call at discharge from Rehab to see Plate Keeper for future ANGIOPLASTY PROCEDURE) Marie Tejeda DO [...] <Electronically signed by Humberto Diaz MD> 05/03/23 3389 [facility] Work Phone: Discharge [place]Christ[place] [id number] Discharge Summary Signed Patient: Manolo Roche MR#: [id number] : 1935 Acct:[id number] Age/Sex: 89 / M Adm Date: 5 Loc: 4N Room: 6W7486-[address]: Lisa Hidalgo MD Copies to: [...] 40-45%, mild LVH, trace MR and TR. [facility] 07/16/22 - Successful PCI ostial/proximal LAD-diagonal branch; true MATERIAL COMBINER proximal/mid LAD (attempted wiring with balloon). ECHO in January 2024 at [facility]: EF 30-35% ECHO 03/09/2024: ECHO [...] call with any questions. Follow up with [facility] Cardiology as scheduled. Patient was [...] Lisa Hidalgo MD 07/18/241899 Signed By: 07/18/241901 [facility] Author Lisa Hidalgo [facility]Note Date/TimeJanuary 2024 7:02pmBig [place] [address] Discharge Summary Signed Patient: Manolo Roche MR#: [id number] : 1935 Acct:[id number] Age/Sex: 89 / M Adm Date: 5 Loc: 4N Room: 0G4292-[address]: Lisa Hidalgo MD Copies to: [...] homeas disposition. Cardiology consulted, recommended to follow: [facility] 04/30/23 - Two-vessel coronary artery disease- 100% prox LAD occlusion; 80% D1; LCx has 50% prox stenosis with 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 Echo 04/28/23 - EF 40-45%, mild LVH, trace MR and TR. [facility] 07/16/22 - Successful PCI ostial/proximal LAD-diagonal branch; true MATERIAL COMBINER proximal/mid LAD (attempted wiring with balloon). ECHO in January 2024 at [facility]: EF 30-35% ECHO 03/09/2024: ECHO [...] call with any questions. Follow up with [facility] Cardiology as scheduled. Patient was [...] <Electronically signed by Lisa Hidalgo MD> 07/18/241901 [facility] Work Phone: Evaluation + Plan note No data available for this section [facility] Evaluation + Plan note Future Appointments Appointment Date:05/22/2025 01:00:00 PM Scheduled Provider: Location:[facility] Appointment Type:Urology CALL PAT FT Appointment Date:05/24/2025 10:00:00 AM Scheduled Provider: Location:[facility] Appointment Type:Urology FT Appointment Date:05/24/2025 11:00:00 AM Scheduled Provider: Location:[facility] Appointment Type:Urology FT [facility] Evaluation note* Diagnosis Perforated viscus- Primary [...] uncontrolled, or unspecified documented in this encounter [facility] Work Phone: evaluation note* Diagnosis Onset Date Resolution Status Abnormal EKG acuteClosed intertrochanteric fracture of right hipacuteElevated troponinacute [facility] Work Phone: Evaluation note* Diagnosis Onset Date Resolution Status Abnormal EKG acuteClosed intertrochanteric fracture of right hipacuteDiabetesacuteElevated troponinacuteImpaired mobility and activities of daily livingacuteMild left ventricular systolic dysfunction (LVSD)acuteNonsustained monomorphic ventricular tachycardiaacutePostoperative pain, acute, hipacuteTwo-vessel coronary artery diseaseacute [facility] Work Phone: Evaluation note* Diagnosis Onset [...] malnutrition, mildacuteTwo-vessel coronary artery diseaseacuteUncontrolled diabetes mellitusacute [facility] Work Phone: Evaluation note* Diagnosis NSTEMI (non-ST elevated myocardial infarction) ([facility])- Primary Acute myocardial infarction, subendocardial infarction, episode of care unspecified Abnormal stress test Other nonspecific abnormal cardiovascular system function study ASHD (arteriosclerotic heart disease) Coronary atherosclerosis of unspecified type of vessel, muckleshoot or graft Essential hypertension Unspecified essential hypertension Diabetes mellitus type II, non insulin dependent ([facility]) Type II or unspecified type diabetes mellitus without mention of complication, not stated as uncontrolled Closed fracture of right hip, initial encounter ([facility]) documented in this encounter [facility] Work Phone: Evaluation noteNo InformationNort [employer] Other Evaluation note* Diagnosis Onset Date Resolution Status Diabetes acuteCAD (coronary artery disease)acuteDiabetesacute [facility] Work Phone: Evaluation note* Diagnosis Cardiomyopathy, ischemic- Primary Other specified forms of chronic ischemic heart disease ASHD (arteriosclerotic heart disease) Coronary atherosclerosis of unspecified type of vessel, muckleshoot or graft BMI 20.0-20.9, adult Orthopnea documented in this encounter [facility] Work Phone: Evaluation noteNo assessment information available [facility] Work Phone: Evaluation note* Diagnosis Onset Date Resolution Status Fracture of C5 vertebra, closed acuteVertebral fracture, closedacuteBarretts esophagusacuteH pylori ulceracute [facility] Work Phone: Evaluation note* Diagnosis Onset Date Resolution Status Acute electrocardiogram changes acuteAcute GI bleedingacuteElevated troponinacuteGI bleedingacute [facility] Work Phone: Evaluation note* Diagnosis Onset Date Resolution Status Acute electrocardiogram changes acuteAcute GI bleedingacuteCAD (coronary artery disease)[id number] acuteElevated troponinacuteGI bleedingacuteHistory of pancreatectomyacute HypertensionacuteS/P PTCA (percutaneous transluminal coronary angioplasty)acute Type 1 diabetes mellitusacute [facility] Work Phone: Evaluation note* Diagnosis Onset Date Resolution Status Acute electrocardiogram changes resolvedAcute GI bleedingresolvedElevated troponinresolvedIschemic cardiomyopathyacuteAcute GI bleedingresolved [facility] Work Phone: Evaluation note* Diagnosis Onset Date Resolution Status Acute electrocardiogram changes resolvedAcute GI bleedingresolvedElevated troponinresolvedIschemic cardiomyopathyacuteAcute GI bleedingresolvedIron deficiencyacuteIschemic cardiomyopathyacute [facility] Work Phone: Evaluation note* Diagnosis Onset Date Resolution Status Acute electrocardiogram changes resolvedAcute GI bleedingresolvedElevated troponinresolvedIschemic cardiomyopathyacuteAcute GI bleedingresolvedIron deficiencyacuteIschemic cardiomyopathyacuteIschemic cardiomyopathyacuteIschemic cardiomyopathyacuteAcute GI bleedingresolved [facility] Work Phone: Evaluation note* Diagnosis 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 ([facility]/HCC) Pancreatic insufficiency ([facility]/HCC)- Primary Other specified disease of pancreas Coronary arteriosclerosis ([facility]/HCC) Coronary atherosclerosis of unspecified type of vessel, muckleshoot or graft 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 ([facility]/HCC) 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 ([facility]/HCC) H pylori ulcer Chronic ulcer of unspecified site documented in this encounter [facility] HealthcareEvaluation note* Diagnosis 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 ([facility]/HCC) Bronchitis- Primary Bronchitis, not specified as acute or chronic 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 (CMS/HCC) Generalized anxiety disorder ([facility]) Generalized anxiety disorder Need for immunization against influenza Need for prophylactic vaccination and inoculation against influenza 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 H pylori ulcer Chronic ulcer of unspecified site 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 ([facility]/HCC) Insulin pump in place Insulin pump status Pancreatic insufficiency ([facility]/HCC) Other specified disease of pancreas Duodenal ulcer Medicare annual wellness visit, subsequent ACP (advance care planning) Other specified counseling Bradycardia Other specified cardiac dysrhythmias Orthostatic hypotension Acute on chronic systolic congestive heart failure ([facility]/HCC) documented in this encounter [facility] HealthcareEvaluation note* Diagnosis 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 ([facility]) ICD (implantable cardioverter-defibrillator) in place- Primary Hospital discharge follow-up Other follow-up examination 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 (CMS/HCC) Coronary atherosclerosis of unspecified type of vessel, muckleshoot or graft Insulin pump in place Insulin pump status 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) Moderate pulmonary arterial systolic hypertension (CMS/HCC) Nonrheumatic mitral valve regurgitation Chronic systolic CHF (congestive heart failure), NYHA class 2 (CMS/HCC) [facility]* Diagnosis 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 (CMS/HCC) Abdominal wall abscess- Primary Cellulitis and abscess of trunk documented in this encounter [facility] Healthcare[facility]* Diagnosis 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, with long-term current use of insulin(HCC)- Primary 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) Insulin pump status [facility] Diabetes mellitus secondary [...] absence of pancreas documented [facility]* Diagnosis 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 (CMS/HCC) Abdominal wall abscess- Primary Cellulitis and abscess of trunk documented in this encounter [facility]* Diagnosis 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 (CMS/HCC) Chronic systolic CHF (congestive heart failure), NYHA class 2 (CMS/HCC)- Primary Pancreatic insufficiency (CMS/HCC) Other specified disease of pancreas History of bleeding peptic ulcer Coronary arteriosclerosis (CMS/HCC) Coronary atherosclerosis of unspecified type of vessel, muckleshoot or graft 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) Orthostatic hypotension Bronchitis Bronchitis, not specified as acute or chronic documented [facility]* Diagnosis 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, with long-term current use of insulin(HCC)- Primary [facility] Diabetes mellitus secondary to [...] disease of pancreas documented [facility] this [facility]* Diagnosis 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, with long-term current use of insulin(HCC)- Primary [facility] Diagnosis 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, with long-term current use of insulin(HCC)- Primary 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) Insulin pump status Insulin pump titration Fitting and adjustment of insulin pump [facility] Diagnosis 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, with long-term current use of insulin(HCC) [facility] Diagnosis 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, with long-term current use of insulin(HCC)- Primary 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) Insulin pump status Insulin pump titration Fitting and adjustment of insulin pump [facility] Diagnosis 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, with long-term current use of insulin(HCC)- Primary [facility] Diagnosis 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, with long-term current use of insulin(HCC) [facility] Diagnosis 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, with long-term current use of insulin(HCC) [facility] Diagnosis 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 Type 1 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 (HCC) Pancreatic insufficiency (HCC)- Primary Other specified disease of pancreas Pleurisy Pleurisy without mention of effusion or current tuberculosis Pleurisy Pleurisy without mention of effusion or current tuberculosis [facility] Diagnosis 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, with long-term current use of insulin(HCC)- Primary [facility] Diagnosis 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, with long-term current use of insulin(HCC)- Primary [facility] Diagnosis Onset Date Resolution Status Admit Date Ischemic cardiomyopathy acuteSept2024 9:54amType 1 diabetes mellitusacuteSept2024 9:54amAcute GI bleedingresolvedSept2024 9:54amCoronary artery disease involving muckleshoot coronary artery of muckleshoot heart wiinactiveSept2024 9:54amHypertensioninactiveSept2024 9:54amS/P PTCA (percutaneous transluminal coronary angioplasty)inactiveSept2024 9:54am [facility] Work Phone: Evaluation note* Diagnosis 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 Type 1 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 (HCC) Need for follow-up care after discharge- Primary Generalized anxiety disorder Pancreatic insufficiency (HCC) Other specified disease of pancreas Mixed hyperlipidemia 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) Coronary arteriosclerosis Coronary atherosclerosis of unspecified type of vessel, muckleshoot or graft Current moderate episode of major 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 (HCC) Insulin pump in place Insulin pump status History of bleeding peptic ulcer 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 DATE OF EXAMINATION: 07/17/24 CHIEF COMPLAINT: [...] is noted above in HPI [facility] Medical History Type 1 diabetes mellitus CAD (coronary artery disease) Former smoker BPH (benign prostatic hyperplasia) Urinary frequency Cardiomyopathy wearing external defib Coronary artery disease involving muckleshoot coronary artery of muckleshoot heart withoutangina pectoris GI bleeding Dupuytren's contracture [...] days #30 tabs 05/07/23 [Rx Confirmed 07/16/24] afvpmp-isjbflbk-kfbtjcx 24,000-76,000-120,000 unit capsule,delayed rel (Creon) 2cap PO [...] tab PO DAILY 10/26/23 [History Confirmed 07/16/24] kqbfux-bvsjlmlw-ctiiniq 24,000-76,000-120,000 unit capsule,delayed rel (Creon) 1cap PO [...] % (Auto) 18.9 % (.) 07/16/24 12:30 Cottonwood % (Auto) 12.8 % (.) 07/16/24 12:30 Eos % (Auto) 2.7 % (.) 07/16/24 12:30 Baso % (Auto) 0.8 % (.) 07/16/24 12:30 Nucleat RBC Rel Count 0.2 /100 WBC (0-0.5) 07/16/24 12:30 Neut # (Auto) 4.7 x10E3/uL (1.8-7.7) 07/16/24 12:30 Lymph # (Auto) 1.4 x10E3/uL (1.00-4.8) 07/16/24 12:30 Cottonwood # (Auto) 0.9 x10E3/uL (0.0-0.8) H 07/16/24 [...] 2 Documented By: Indra Guillory MD 5 [id number] Signed By: <Electronically signed by Indra Guillory MD> 07/17/24 0148 [facility] Work Phone: History general Narrative - Reported* Type Description Date Medical History stage 1 diabetes Surgical Historypancreas and spleen removalSurgical Historyback surgerySurgical HistorytonsilectomySurgical HistoryHIP TFN [id number] Ibetor Other Hospital Discharge instructions* Instructions* Viki Donovan, [...] scheduled appointment, please call the office at [phone]. Call Your Doctor If Any of the [...] through Care Everywhere. * Surgical [facility] ([place]ammar[place]) [facility] Work Phone: Hospital Discharge instructions Additional Instructions [...] -Dietary supplement: Glucerna 1 container twice a day.[facility] Work Phone: Hospital Discharge instructions Additional [...] doctor or pharmacist, without first calling the truss maker who implanted the stent. If you require [...] weight lifting, stair steppers, etc. until the truss maker approves these activities. Check with the truss maker on your first follow-up visit. CALL YOUR PHYSICIAN at [phone]: -If bleeding should occur from the catheter insertion site- apply pressure to the site then immediately call us. -Report any fever, redness, drainage, increased swelling, or firmness at the catheter insertion site. Some bruising or slight swelling may be present at the time of discharge. -Should arm or leg become cold, numb, white, or blue, contact the truss maker immediately. -IF you should experience episodes of [...] is recommended. Please call Central Scheduling at [phone] to schedule your appointment.] The attending truss maker or [facility] nurse clinician should provide you with specific instructions regarding activity, diet, medications, and further follow up for you. Follow the medication instructions provided on your discharge. If the dosages and instructions on this sheet differ from the dosage and instructions on the bottle, follow the instructions on the bottle. [facility] is not responsible for incorrect prescription information provided by the patient during their visit. Do not stop your medications without consulting your health care provider. Please take the list with you to your next doctor's appointment.[facility] Work Phone: Hospital Discharge instructionsAmbulatory Orders* Referral to Cardiac Rehab Location: None Selected [facility] Work Phone: Hospital Discharge instructions No data available for this section [facility] Progress note Author Anat Perez [facility] February 08, 2024 2:07pmNote Date/TimeJuly 2023 2:04pm[address] [address] Cardiology Progress Note Signed Patient: Manolo Roche MR#: [id number] : 1935 Acct:[id number] Age/Sex: 88 / M Adm Date: 4 Loc: Room: [address] [place] [address] Type: ADM IN Attending Dr: Warren Gross [...] MPV Neut % (Auto) Lymph % (Auto) Cottonwood % (Auto) Eos % (Auto) Baso % (Auto) Nucleat RBC Rel Count Neut # (Auto) Lymph # (Auto) Cottonwood # (Auto) Eos # (Auto) Baso # [...] % (Auto) 51.7 Lymph % (Auto) 22.3 Cottonwood % (Auto) 17.6 Eos % (Auto) 7.1 Baso % (Auto) 1.3 Nucleat RBC Rel Count 0.2 Neut # (Auto) 3.0 Lymph # (Auto) 1.3 Cottonwood # (Auto) 1.0 H Eos # (Auto) [...] MPV Neut % (Auto) Lymph % (Auto) Cottonwood % (Auto) Eos % (Auto) Baso % (Auto) Nucleat RBC Rel Count Neut # (Auto) Lymph # (Auto) Cottonwood # (Auto) Eos # (Auto) Baso # (Auto) PHA Creatinine Clear Sodium Potassium Chloride Carbon Dioxide Anion Gap BUN Creatinine Est GFR (CKD-EPI) Glucose POC Glucose 382 POC Glucose Comment Calcium Magnesium A&P - Cardiology (1) Acute GI bleeding: Code(s): K92.2 - Gastrointestinal hemorrhage, unspecified (2) Elevated troponin: Code(s): R79.89 - Other specified abnormal findings of blood chemistry (3) Coronary artery disease involving muckleshoot coronary artery of muckleshoot heart without angina pectoris: Code(s): I25.10 - Atherosclerotic heart disease of muckleshoot coronary artery without angina pectoris (4) S/P PTCA (percutaneous transluminal coronary angioplasty): Code(s): Z98.61 - Coronary angioplasty status Plan # Acute recurrent GI Bleed in setting of known PUD (recent EGD on 09/01/23 found a 2 cm ulcer with anonbleeding visible vessel at the bulb of the duodenum). # CAD s/p PCI in Jul 2023. # Ischemic Cardiomyopathy s/p LifeVest ordered in [place] - Well compensated. # Non-ACS myocardial injury - Is due to demand-supply mismatch 2/2 acute anemia. 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 Current smoker. [facility] 04/30/23 - Two-vessel coronary artery disease- 100% prox LAD occlusion; 80% D1; LCx has 50% prox stenosis with 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 Echo 04/28/24 - EF 40-45%, mild LVH, trace MR and TR. [facility] 07/16/22 - Successful PCI ostial/proximal LAD-diagonal branch; true [employer]ERIAL [employer] proximal/mid LAD (attempted wiring with balloon). EKG 09/07/23 - sinus peace 56 bpm, anterolateral TWI. EKG 09/08/23 - sinus peace 58 bpm, anterolateral and inferior TWI. - Pt is currently 6 months out from PCI. Plavix stopped. Continue ASA 81mg dailyand monitor Hb - Reviewed records from recent hospitalization at [facility] in [place]. He was hospitalized for NSTEMI and PNA. [...] PO 20mg daily. - Follow up with [facility] cardiology as scheduled on 03/02/24. Will plan on repeat ECHO 3 months after being on maximally tolerated GDMT to determine need for ICD. - Cardiology will sign off. Please call with questions. Documented By: Anat Perez MD 02/08/24 2765 Signed By: <Electronically signed by Anat Perez MD> 02/08/24 5990 [facility] Work Phone: Progress note Author Chuck Velasco [facility] HospitalNote Date/TimeNovember 2023 10:41am [place] [address] Cardiology Progress Note Signed Patient: Manolo Roche MR#: [id number] : 1935 Acct:[id number] Age/Sex: 89 / M Adm Date: 4 Loc: Room: [address] [place] [address] Type: ADM IN Attending Dr: Abdulaziz Root [...] signed by Chuck Velasco MD> 05/25/24 1041 [facility] Work Phone: Progress note No data available for this section [facility] Reason for referral (narrative)* Consultation (Routine) - AuthorizedSpecialtyDiagnoses / ProceduresReferred By ContactReferred To ContactCardiology Diagnoses Abnormal stress test ASHD (arteriosclerotic heart disease) NSTEMI (non-ST elevated myocardial infarction) ([facility]) Procedures Follow Up In Cardiology Govind Davis, [address] [facility] [address] [place] [id number] Govind Davis, DO [address] [facility] [address] [place] [phone] Referral IDStatusReasonStart DateExpiration DateVisits RequestedVisits [id number]/14/202311/ * Cardiovascular (Routine) - Pending ReviewSpecialtyDiagnoses / Procedures Referred By ContactReferred To Contact Diagnoses Abnormal stress test ASHD (arteriosclerotic heart disease) Procedures ECG 12 Lead Govind Davis, [address] [facility] [address] [place] [phone] Referral IDStatusReasonStlas cruces DateExpiration DateVisits RequestedVisits [id number] Uerizs91 [facility] Work Phone: Reuezl for referral (narrative)No reason for referral information availableOhio State East Hospital Work Phone: Advance Directives Code StatusDate ActivatedDate InactivatedCommentsFull Code01/02/2022 10:32 PMFull Code01/02/2022 8:11 PM01/02/2022 10:32 PMNameRelationshipHealthcare Agent RelationshipCommunicationRose Yodit SbernaSpousePrimary Decision Maker* Saúl SbernaChildSecondary Decision Maker* Advance Directive Response Recorded Date/ Time Advance Directives No March 5:30pm Advance Directive Response Recorded Date/ Time Advance Directives No March 4:30pm Date ActivatedDate MtrwhrrdyntFmmdevkb27/16/2024 7:43 AMDate ActivatedDate DycipaeodkaXeosbeyp77/16/2024 7:43 AM Summary Purpose Family History Relationship [...] Acute GI bleeding CAD (coronary artery disease) [id number] Elevated troponin GI bleeding History of pancreatectomy Hypertension S/P PTCA (percutaneous transluminal coronary angioplasty) Type 1 diabetes mellitus Chief Complaint Dizziness Dizziness Dizziness K92.2Reason for VisitAcute electrocardiogram changes Acute GI bleeding CAD (coronary artery disease) [id number] Elevated troponin GI bleeding History of pancreatectomy Hypertension S/P PTCA (percutaneous transluminal coronary angioplasty) Type 1 diabetes mellitus Chief Complaint Dizziness Dizziness Dizziness K92.2 K92.2Reason for VisitAcute electrocardiogram changes Acute GI bleeding CAD (coronary artery disease) [id number] Elevated troponin GI bleeding History of pancreatectomy Hypertension S/P PTCA (percutaneous transluminal coronary angioplasty) Type 1 diabetes mellitus Chief Complaint Dizziness Dizziness Dizziness K92.2 K92.2 [facility] 02/06Reason for VisitAcute electrocardiogram changes Acute GI bleeding CAD (coronary artery disease) [id number] Elevated troponin GI bleeding History of pancreatectomy Hypertension S/P PTCA (percutaneous transluminal coronary angioplasty) Type 1 diabetes mellitus Chief Complaint Dizziness Dizziness Dizziness K92.2 K92.2 [facility] 02/06 k92.2 d50.9 r00.1Reason for VisitAcute electrocardiogram changes Acute GI bleeding Elevated troponin Ischemic cardiomyopathy Acute GI bleeding Chief Complaint Dizziness Dizziness Dizziness K92.2 K92.2 [facility] 02/06 r00.1 k92.2 d50.9 r00.1 bp checkReason for VisitAcute electrocardiogram changes Acute GI bleeding Elevated troponin Ischemic cardiomyopathy Acute GI bleeding Chief Complaint Dizziness Dizziness Dizziness K92.2 K92.2 [facility] 02/06 r00.1 k92.2 d50.9 r00.1 bp check E61.1,K92.2 I25.10Reason for VisitAcute electrocardiogram changes Acute GI bleeding Elevated troponin Ischemic cardiomyopathy Acute GI bleeding Iron deficiency Ischemic cardiomyopathy Chief Complaint Dizziness Dizziness Dizziness K92.2 K92.2 [facility] 02/06 r00.1 k92.2 d50.9 r00.1 bp check I25.10 E61.1,K92.2Reason for VisitAcute electrocardiogram changes Acute GI bleeding Elevated troponin Ischemic cardiomyopathy Acute GI bleeding Iron deficiency Ischemic cardiomyopathy Chief Complaint Dizziness Dizziness Dizziness K92.2 K92.2 [facility] 02/06 r00.1 k92.2 d50.9 r00.1 bp check I25.10 E61.1,K92.2 2 weeks bpReason for VisitAcute electrocardiogram changes Acute GI bleeding Elevated troponin Ischemic cardiomyopathy Acute GI bleeding Iron deficiency Ischemic cardiomyopathy Chief Complaint Dizziness Dizziness Dizziness K92.2 K92.2 [facility] 02/06 r00.1 k92.2 d50.9 r00.1 bp check I25.10 E61.1,K92.2 2 weeks bp 6 weeksReason for VisitAcute electrocardiogram changes Acute GI bleeding Elevated troponin Ischemic cardiomyopathy Acute GI bleeding Iron deficiency Ischemic cardiomyopathy Ischemic cardiomyopathy Ischemic cardiomyopathy Acute GI bleeding Chief Complaint Dizziness Dizziness Dizziness K92.2 K92.2 [facility] 02/06 r00.1 k92.2 d50.9 r00.1 bp check I25.10 E61.1,K92.2 2 weeks bp 6 weeks evaluation for ICD evaluation for ICDReason for VisitAcute electrocardiogram changes Acute GI bleeding Elevated troponin Ischemic cardiomyopathy Acute GI bleeding Iron deficiency Ischemic cardiomyopathy Ischemic cardiomyopathy Ischemic cardiomyopathy Acute GI bleeding Chief Complaint Dizziness Dizziness Dizziness K92.2 K92.2 [facility] 02/06 r00.1 k92.2 d50.9 r00.1 bp check I25.10 E61.1,K92.2 2 weeks bp 6 weeks evaluation for ICD evaluation for ICD HFCReason for VisitAcute electrocardiogram changes Acute GI bleeding Elevated troponin Ischemic cardiomyopathy Acute GI bleeding Iron deficiency Ischemic cardiomyopathy Ischemic cardiomyopathy Ischemic cardiomyopathy Acute GI bleeding Chief Complaint Dizziness Dizziness Dizziness K92.2 K92.2 [facility] 02/06 r00.1 k92.2 d50.9 r00.1 bp check I25.10 E61.1,K92.2 2 weeks bp 6 weeks evaluation for ICD evaluation for ICD HFCReason for VisitAcute electrocardiogram changes Acute GI bleeding Elevated troponin Ischemic cardiomyopathy Acute GI bleeding Iron deficiency Ischemic cardiomyopathy Ischemic cardiomyopathy Ischemic cardiomyopathy Acute GI bleeding Ischemic cardiomyopathy [id number] Sinus bradycardia H pylori ulcer Iron deficiency Ischemic cardiomyopathy [id number] Chief Complaint K92.2 K92.2 [facility] 02/06 r00.1 k92.2 d50.9 r00.1 bp check I25.10 E61.1,K92.2 2 weeks bp 6 weeks evaluation for ICD evaluation for ICD HFC BP WITH ORTHOReason for VisitIschemic cardiomyopathy Acute GI bleeding Iron deficiency Ischemic cardiomyopathy Ischemic cardiomyopathy Ischemic cardiomyopathy Acute GI bleeding Ischemic cardiomyopathy [id number] Sinus bradycardia H pylori ulcer Iron deficiency Ischemic cardiomyopathy [id number] Chief Complaint Admit Date bp check February [...] 2024 10:57am Coronary artery disease invo lving muckleshoot coronary artery of muckleshoot heart wi March 27, 2024 10:57am Hypertension [...] 37pm I47.2 Z95.810 August 29, 2024 1:28pm [facility] 07/17August 31, 2024 9:56am Reason for Visit [...] 2024 9:56am Coronary artery disease invo lving muckleshoot coronary artery of muckleshoot heart wi August 31, 2024 9:56am Hypertension August 31, 2024 9:56am S/P PTCA (percutaneous transluminal mounika nary angioplasty) August 31, 2024 9:56am Chief Complaint Admit Date chest pain July 16, 2024 6: 08pm chest pain July 17, 2024 4: 37pm I47.2 Z95.810 August 29, 2024 1:28pm [facility] 07/17August 31, 2024 9:56am 6 weeks October [...] 2024 9:56am Coronary artery disease invo lving muckleshoot coronary artery of muckleshoot heart wi August 31, 2024 9:56am Hypertension August 31, 2024 9:56am S/P PTCA (percutaneous transluminal mounika nary angioplasty) August 31, 2024 9:56am Ischemic cardiomyopathy October 13, 2024 9:10am Type 1 diabetes mellitus October 13, 2024 9:10am Acute GI bleeding October 13, 2024 9:10 am Coronary artery disease invo lving muckleshoot coronary artery of muckleshoot heart wi October 13, 2024 9:10am Hypertension [...] 9:10 am Coronary artery disease invo lving muckleshoot coronary artery of muckleshoot heart wi October 13, 2024 9:10am Hypertension [...] 2025 9:54am Coronary artery disease invo lving muckleshoot coronary artery of muckleshoot heart wi March 27, 2025 9:54am Hypertension [...] 2025 9:54am Coronary artery disease invo lving muckleshoot coronary artery of muckleshoot heart wi March 27, 2025 9:54am Hypertension [...] 2025 10:11am Coronary artery disease invo lving muckleshoot coronary artery of muckleshoot heart wi May 09, 2025 10:11am Hypertension May 09, 2025 1 0:11am S/P PTCA (percutaneous transluminal mounika nary angioplasty) May 09, 2025 10:11am Additional Source Comments Reason for Visit (unrecogniz ed section and content) ReasonCommentsAbdominal PainulcerSpecialtyDiagnoses / ProceduresReferred By ContactReferred To Contact Diagnoses Acute gastric ulcer with perforation (HCC) Perforated viscus Delon Carrion, DO [address] [facility] [address] [place] [address] [facility] [address] [place] [address] Referral IDStatusReasonStart DateExpiration DateVisits RequestedVisits [id number] Follow-up[facility] 05/08/2023Specialty Diagnoses / ProceduresReferred By ContactReferred To Contact Diagnoses Abnormal stress test ASHD (arteriosclerotic heart disease) Procedures ECG 12 Lead Govind Davis, DO [address] [facility] [address] [place] [address] Referral IDStatusReasonStart DateExpiration DateVisits RequestedVisits [id number] SpecialtyDiagnoses / ProceduresReferred By ContactReferred To ContactCardiology Diagnoses ASHD (arteriosclerotic heart disease) Procedures Follow Up In Cardiology Sammy Berman, DOCUMENTATION ENGINEER-SENIOR ELECTRONICS TECHNICIAN [address] [facility] [address] [place] [address] Referral IDStatusReasonStart DateExpiration DateVisits RequestedVisits [id number]/13/202312/561405HaksdtAwhccqexXbx-kmsj office visitToday patient reports he is feeling [...] Procedures OFFICE/OUTPATIENT NEW HIGH MDM 60 MINUTES [id number] (SNOMED CT) - AMB REFERRAL TO ENDOCRINOLOGY Anatoly Anne, KALANI [address] [place] [address] Madelyn Reese MD, PhD [address] [place] [address] Referral IDStatusReasonStart DateExpiration DateVisits RequestedVisits [id number] [id number]-xakml office visitHospital Follow-yiAjscwfPyeavyxy6be pow I&D Lt. abd. wall abscess ReasonCommentsOmnipod [...] G7 issuesReasonCommentsOmnipod/Dexcom issues ReasonCommentsHigh Blood SugarReasonOnset DateCommentsRefill Qoiicti5212/19/2024 ReasonOnset DateCommentsRefill Xtkvzbb5212/12/2024ReasonCommentsFlank PainLeft- side for 10 days, denies change [...] Sage RN) * 2123 (Stopped - Provider: Queat Geiger, RN) * 2312 (New Bag - [...] Name: SALVADOR NARANJO DO Address: [address] [facility] [address] [place], [place] [address] Telecom: Team Status: Active Member Role Status Dates Marie Tejeda DO Primary Care Provider Active Team Status: Inactive Member Role Status Dates Marie Tejeda DO Primary Care Provider Active Dimitri Miranda ProviderActiveKristophmichelle Robertom , DOAdmit ProviderActiveAshwini Conrad MDOther ProviderActiveChuck Velasco MD Other ProviderActiveAnat Perez MDOther ProviderActiveHumberto Diaz MD Attending ProviderActiveTru Yap MDOther ProviderActiveTeam Member RelationshipSpecialtyStart DateEnd Date Marie Tejeda [facility] [address] [place] [address] PCP - GeneralInternal Medicine01/07/22 Team Status: Active [...] MDOther ProviderActiveEarelham Angeles MDOther ProviderActiveMarga Mccauley , HOSPITAL CHIEF EXECUTIVE OFFICER-COther ProviderActiveIndra Guillory MDOther ProviderActiveDavid Fonseca MD Other ProviderActiveHai Aguilera MDOther ProviderActiveAnoPino MDOther ProviderActiveMargerald Urena , DOOther ProviderActiveNeal R Lina , DOOther ProviderActiveAnthony M Miniaci , DOOther ProviderActiveLinda Obika , APRNOther ProviderActiveShradhan Khoi Gross , DOOther ProviderActiveObaydah Guille Jimenez MDOther ProviderActivePaula Aileen Berman , APRNOther ProviderActiveAlicia Arnaldo Pimentel , DOCUMENTATION ENGINEER Other ProviderActiveVidya Robert MDOther ProviderActiveDagerson Burrell MDOther ProviderActiveKyle Leeann John , DOOther ProviderActivePatricia Brody Murdock , APRNOther ProviderActiveYadontae Drake , DOOther ProviderActiveErma Morillo RNOther ProviderActiveTeam MemberRelationshipSpecialtyStart DateEnd Date Marie Tejeda DO [address] [place] [address] PCP - GeneralInternal Vikqdjak37/7/23 Team Status: Inactive Member Role Status Dates Marie Tejeda DO Primary Care Provider Active Aryna Carlos ProviderActive Team Status: Inactive Member Role [...] Tejeda, [address] [place] [address] [facility] - [facility] Kjnfmlvp66/7/23 Team Status: Inactive Member Role Status Dates [...] September 27, 2023 End: September 26lewis Flores HOSPITAL CHIEF EXECUTIVE OFFICER-CAttending ProviderActive Start: September 27, 2023 End: September 27, 2023 Team Status: Inactive Member Role Status Dates Marie Tejeda DO Primary Care Provider Active Start: September 28, 2023 End: September 28, 2023Rachelle Luciano HOSPITAL CHIEF EXECUTIVE OFFICER-CAttending ProviderActiveStart: September 28, 2023 End: September 28, [...] Member Role Status Dates Anat Perez MD Plate Keeper Active [facility] ProviderActive Team Status: Inactive Member Role Status [...] DO [address] [place] [address] PCP - GeneralInternal Medicine01/08/23 Marie Tejeda DO [address] [place] [address] PCP - ACO Reach09/10/23 Patrick Beard MD [address] [facility] [address] [place] [address] Referring WxabxrerqZbjypdptsutearkb43/7/24 Andrey Grullon MD [address] [place] [address] Referring HenpylauyEzvgqrewp95/7/24 Saúl Davis MD [address] [place] [address] [address] [place] [address] Referring RtbbyodlhRlqnyagslz43/7/24 Team Status: Active Member Role Status Dates [...] [address] [place] [address] PCP - GeneralInternal Medicine01/08/23 Marie Tejeda DO [address] [place] [address] PCP - ACO Reach09/10/23 Patrick Beard MD [address] [facility] [address] [place] [address] Referring RvdldrexzGnumtcejzziphbur49/7/24 Andrey Grullon MD [address] [place] [address] Referring NvixilogzTfebbikai52/7/24 Saúl Davis MD [address] [facility] [address] [place] [address] Referring JpschbiptRdjngkxndk66/7/24 Team Status: Inactive Member Role Status Dates [...] Team Status: Active Member Role Status Dates aMrie Tejeda DO Primary Care Provider Active Start: [...] DO [address] [place] [address] PCP - GeneralInternal Medicine01/08/23 Marie Tejeda DO [address] [place] [address] PCP - ACO Reach09/10/23 Patrick Beard MD [address] [facility] [address] [place] [address] Referring KtmrxdgeiEkhxhhsqwzhkywyw80/7/24 Andrey Grullon MD [address] [place] [address] Referring HxxheefqxCtybbrphw84/7/24 Saúl Davis MD [address] [place] [address] [address] [place] [address] Referring JlnvmaoyaHccweyblqy55/7/24Team MemberRelationshipSpecialtyStart Date End Date Marie Tejeda DO [address] [place] [address] PCP - GeneralInternal Medicine01/08/23 Marie Tejeda DO [address] [place] [address] PCP - ACO Reach09/10/23 Patrick Beard MD [address] [facility] [address] [place] [address] Referring ZmbrwfxptAjrtwnyakhokjlap04/7/24 Andrey Grullon MD [address] [place] [address] Referring HlwcvfttoVmliqkxnd04/7/24 Saúl Davis MD [address] [facility] [address] [place] [address] Referring DhfabqpseAtxqbmyuxd12/7/24Team MemberRelationshipSpecialtyStart Date End Date Marie Tejeda DO [address] [place] [address] PCP - GeneralInternal Medicine03/30/18 Anatoly Anne CNP [address] [place] [address] ReferringInternal Suuhmebf40/16/24Team MemberRelationshipSpecialtyStart DateEnd Date Marie Tejeda DO [address] [place] [address] PCP - GeneralInternal Medicine03/30/18 Anatoly Anne CNP [address] [place] [address] ReferringInternal Cixwqhbp70/16/24Team MemberRelationshipSpecialtyStart DateEnd Date Marie Tejeda DO [address] [place] [address] PCP - GeneralInternal Medicine01/08/23 Marie Tejeda DO [address] [place] [address] PCP - ACO Reach09/10/23 Patrick Beard MD [address] [facility] [address] [place] [id number] Referring YeteuladiBnxhkqjnnnzcywqm02/7/24 Andrey Grullon MD [address] [place] [address] Referring BnzdnudkgDsucnsmeu79/7/24 Saúl Davis MD [address] [facility] [address] [place] [address] Referring PfsbjmpvkCdrnqdtila35/7/24Team MemberRelationshipSpecialtyStart Date End Date Marie Tejeda DO [address] [place] [address] PCP - GeneralInternal Medicine01/08/23 Marie Tejeda DO [address] [place] [address] PCP - ACO Reach09/10/23 Patrick Beard MD 1 [facility] [address] [place], [place] [address] Referring HiyqugzyyBttzaxbcgobvcpgk30/7/24 Andrey Grullon MD [address] [place] [address] Referring BqcuobjxvLdyyywqlo83/7/24 Saúl Davis MD [address] [place] [address] Referring HqhsbmyvoHwxqyhrqkn22/7/24Team MemberRelationshipSpecialtyStart Date End Date Marie Tejeda DO [address] [place] [address] PCP - GeneralInternal Medicine03/30/18 Anatoly Anne CNP [address] [place] [address] ReferringInternal Oumhveap17/16/24Team MemberRelationshipSpecialtyStart DateEnd Date Marie Tejeda DO [address] [place] [address] PCP - GeneralInternal Medicine03/30/18 Anatoly Anne CNP [address] [place] [address] ReferringInternal Iukluulq64/16/24 Team Status: Inactive Member Role Status Dates [...] DO [address] [place] [address] PCP - GeneralInternal Medicine01/08/23 Marie Tejeda DO [address] [place] [address] PCP - ACO Reach09/10/23 Patrick Beard MD [address] [facility] [address] [place] [address] Referring OxpuwbthlNhjtleskuovbsptg09/7/24 Andrey Grullon MD [address] [place] [address] Referring UddtxqapeIjmlifrqg77/7/24 Saúl Davis MD [address] [place] [address] [address] [place] [address] Referring QzrjeqyjiWmmawiyhwj43/7/24Team MemberRelationshipSpecialtyStart Date End Date Marie Tejeda DO [address] [place] [address] PCP - GeneralInternal Medicine01/08/23 Marie Tejeda DO [address] [place] [address] PCP - ACO Reach09/10/23 Patrick Beard MD [address] [facility] [address] [place] [address] Referring DpeahwwcvFqsiuqunfpzcskmx40/7/24 Andrey Grullon MD [address] [place] [address] Referring YmpjiecojVvohgelra80/7/24 Saúl Davis MD [address] [facility] [address] [place] [address] Referring OeeveldxjZoewtzwpaj65/7/24Team MemberRelationshipSpecialtyStart Date End Date Marie Tejeda DO [address] [place] [address] PCP - GeneralInternal Medicine03/30/18 Anatoly Anne CNP [address] [place] [address] ReferringInternal Fswsuodq26/16/24Team MemberRelationshipSpecialtyStart DateEnd Date Marie Tejeda DO [address] [place] [address] PCP - GeneralInternal Medicine03/30/18 Anatoly Anne CNP [address] [place] [address] ReferringInternal Qdtiqxei97/16/24Team MemberRelationshipSpecialtyStart DateEnd Date Marie Tejeda DO [address] [place] [address] PCP - GeneralInternal Medicine03/30/18 Anatoly Anne APRN.CNP [address] [place] [address] ReferringInternal Utnqteom60/16/24 Team Status: Active Member Role Status Dates Marie Tejeda DO Primary Care Provider Active Start: August 29, 2024 Anat Perez , MDReferring ProviderActiveStart: August 29, 2024 Abdulaziz Root , MDAttending Provider, Other ProviderActiveStart: August 29, 2024 Team MemberRelationshipSpecialtyStart DateEnd Date Marie Tejeda DO [address] [place] [address] PCP - GeneralInternal Medicine01/08/23 Marie Tejeda DO [address] [place] [address] PCP - ACO Reach09/10/23 Patrick Beard MD [address] [facility] [address] [place], [place] [id number] Referring EdeewjtbcAlbzeaakupwytjgl31/7/24 Andrey Grullon MD [address] [place] [address] Referring FbncujqswKwlpeyarf43/7/24 Saúl Davis MD [address] [facility] [address] [place] [address] Referring UgrumehciTqkbbpxwql52/7/24 Team Status: Inactive Member Role Status Dates Marie Tejeda DO Primary Care Provider Active Start: August 31, 2024 End: August 31, 2024Jose Britoending ProviderActiveStart: August 31, 2024 End: August 31, 2024Team MemberRelationshipSpecialtyStart DateEnd Date Marie Tejeda DO [address] [place] [address] PCP - GeneralInternal Medicine03/30/18 Anatoly Anne, DOCUMENTATION ENGINEER.SENIOR ELECTRONICS TECHNICIAN [address] [place] [address] ReferringInternal Mfwmstln77/16/24Team MemberRelationshipSpecialtyStart DateEnd Date Marie Tejeda DO [address] [place] [address] PCP - GeneralInternal Medicine03/30/18 Anatoly Anne, DOCUMENTATION ENGINEER.SENIOR ELECTRONICS TECHNICIAN [address] [place] [address] ReferringInternal Iwiphblc45/16/24Team MemberRelationshipSpecialtyStart DateEnd Date Marie Tejeda DO [address] [place] [address] PCP - GeneralInternal Medicine01/08/23 Marie Tejeda DO [address] [place] [address] PCP - ACO Reach09/10/23 Patrick Beard MD [address] [facility] [address] [place] [address] Referring IqvpovhrpCnnksnxfwhcfmwfo40/7/24 Andrey Grullon MD [address] [place] [address] Referring GhjvxytqwOkqlzfgas18/7/24 Saúl Davis MD [address] [facility] [address] [place] [address] Referring MzijdjbvzDpfiwlsqya05/7/24Team MemberRelationshipSpecialtyStart Date End Date Marie Tejeda DO [address] [place] [address] PCP - GeneralInternal Medicine03/30/18 Anatoly Anne, DOCUMENTATION ENGINEER.SENIOR ELECTRONICS TECHNICIAN [address] [place] [address] ReferringInternal Mpmfjrwm24/16/24Team MemberRelationshipSpecialtyStart DateEnd Date Marie Tejeda DO [address] [place] [address] PCP - GeneralInternal Medicine03/30/18 Anatoly Anne, DOCUMENTATION ENGINEER.SENIOR ELECTRONICS TECHNICIAN [address] [place] [address] ReferringInternal Uqjnputb24/16/24Team MemberRelationshipSpecialtyStart DateEnd Date Marie Tejeda DO [address] [place] [address] PCP - GeneralInternal Medicine03/30/18 Anatoly Anne, DOCUMENTATION ENGINEER.SENIOR ELECTRONICS TECHNICIAN [address] [place] [address] ReferringInternal Jcddzxfk65/16/24Team MemberRelationshipSpecialtyStart DateEnd Date aMrie Tejeda DO [address] [place] [address] PCP - GeneralInternal Medicine03/30/18 [facility], DOCUMENTATION ENGINEER.SENIOR ELECTRONICS TECHNICIAN [address] [place] [address] ReferringInternal Bznmymwh20/16/24Team MemberRelationshipSpecialtyStart DateEnd Date Marie Tejeda, DO [address] [place] [address] PCP - GeneralInternal Medicine03/30/18 [facility], DOCUMENTATION ENGINEER.SENIOR ELECTRONICS TECHNICIAN [address] [place] [address] ReferringInternal Npepjuuy34/16/24Team MemberRelationshipSpecialtyStart DateEnd Date Marie Tejeda, DO [address] [place] [address] PCP - GeneralInternal Medicine03/30/18 [facility], DOCUMENTATION ENGINEER.SENIOR ELECTRONICS TECHNICIAN [address] [place] [address] ReferringInternal Wqvggyod42/16/24Team MemberRelationshipSpecialtyStart DateEnd Date Marie Tejeda, DO [address] [place] [address] PCP - GeneralInternal Medicine03/30/18 Anatoly Anne, DOCUMENTATION ENGINEER.SENIOR ELECTRONICS TECHNICIAN [address] [place] [address] ReferringInternal Rugsmoow72/16/24Team MemberRelationshipSpecialtyStart DateEnd Date Marie Tejeda DO [address] [place] [address] PCP - GeneralInternal Medicine03/30/18 Anatoly Anne, DOCUMENTATION ENGINEER.SENIOR ELECTRONICS TECHNICIAN [address] [place] [address] ReferringInternal Duordmzw95/16/24Team MemberRelationshipSpecialtyStart DateEnd Date Marie Tejeda DO [address] [place] [address] PCP - GeneralInternal Medicine03/30/18 Anatoly Anne, DOCUMENTATION ENGINEER.SENIOR ELECTRONICS TECHNICIAN [address] [place] [address] ReferringInternal Uerbglsm15/16/24 Team Status: Inactive Member Role Status Dates Marie Tejeda DO Primary Care Provider Active Start: October 13, 2024 End: October 13, 2024Linda AnaRAHEEL stephenttmyrna ProviderActiveStart: October 13, 2024 End: October 13, 2024Team MemberRelationshipSpecialtyStart DateEnd Date Marie Tejeda DO [address] [place] [address] PCP - GeneralInternal Medicine01/08/23 Marie Tejeda DO [address] [place] [address] PCP - ACO Reach09/10/23 Patrick Beard MD [address] [facility] [address] [place] [address] Referring YyaiumyysFdowdwsccykijjun68/7/24 Andrey Grullon MD [address] [place] [address] Referring JrhndfokkMjjyyngnh31/7/24 Saúl Davis MD [address] [facility] [place] [address] Referring RqvluifntHqwmrusvlt03/7/24Team MemberRelationshipSpecialtyStart Date End Date Marie Tejeda DO [address] [place] [address] PCP - GeneralInternal Medicine03/30/18 Anatoly Anne APRN.SENIOR ELECTRONICS TECHNICIAN [address] [place] [address] ReferringInternal Fabphmmf22/16/24Team MemberRelationshipSpecialtyStart DateEnd Date Marie Tejeda DO [address] [place] [address] PCP - GeneralInternal Medicine03/30/18 Anatoly Anne APRN.SENIOR ELECTRONICS TECHNICIAN [address] [place] [address] ReferringInternal Carshfct14/16/24 Team Status: Active Member Role Status Dates Marie Tejeda DO Primary Care Provider Active Start: November 30, 2024 Anat Perez MDOther ProviderActiveStart: November 30, 2024 Abdulaziz Root MDAttending ProviderActiveStart: November 30, 2024 Team MemberRelationshipSpecialtyStart DateEnd Date Marie Tejeda DO [address] [place] [address] PCP - GeneralInternal Medicine03/30/18 Cally, Anatoly, DOCUMENTATION ENGINEER.SENIOR ELECTRONICS TECHNICIAN [address] [place] [address] ReferringInternal Iirylkpv48/16/24Team MemberRelationshipSpecialtyStart DateEnd Date Marie Tejeda DO [address] [place] [address] PCP - GeneralInternal Medicine03/30/18 Cally, Anatoly, DOCUMENTATION ENGINEER.SENIOR ELECTRONICS TECHNICIAN [address] [place] [address] ReferringInternal Acmolnpe88/16/24Team MemberRelationshipSpecialtyStart DateEnd Date Marie Tejeda DO [address] [place] [address] PCP - GeneralInternal Medicine03/30/18 Cally, Anatoly, DOCUMENTATION ENGINEER.SENIOR ELECTRONICS TECHNICIAN [address] [place] [address] ReferringInternal Fukdywez08/16/24Team MemberRelationshipSpecialtyStart DateEnd Date Marie Tejeda DO [address] [place] [address] PCP - GeneralInternal Medicine01/08/23 Marie Tejeda DO [address] [place] [address] PCP - ACO Reach09/10/23 Patrick Beard MD [address] [facility] [address] [place] [address] Referring ZhzooqrtbWtqzcnrqplzwbhaw70/7/24 Andrey Grullon MD [address] [place] [address] Referring UaueuohgbHitnbcrvo76/7/24 Saúl Davis MD [address] [facility] [place] [address] Referring OmjyzqivsBierjjfaxh17/7/24Team MemberRelationshipSpecialtyStart Date End Date Marie Tejeda DO [address] [place] [address] PCP - GeneralInternal Medicine01/08/23 Marie Tejeda DO [address] [place] [address] PCP - ACO Reach09/10/23 Patrick Beard MD [address] [facility] [address] [place] [address] Referring IruancmmkKeblgwfayslpcets81/7/24 Andrey Grullon MD [address] [place] [address] Referring KinhukgmnVsheyhulu43/7/24 Saúl Davis MD [address] [facility] [address] [place] [address] Referring QqbuiinksRpyxeldrlh36/7/24Team MemberRelationshipSpecialtyStart Date End Date Marie Tejeda DO [address] [place] [address] PCP - GeneralInternal Medicine01/08/23 Marie Tejeda DO [address] [place] [address] PCP - ACO Reach09/10/23 Patrick Beard MD [address] [facility] [address] [place] [address] Referring NrfqeoamnBebhlbxhhponhvze80/7/24 Andrey Grullon MD [address] [place] [address] Referring GttdbpmmkTilajsrae66/7/24 Saúl Davis MD [address] [facility] [address] [place] [address] Referring NlfvpnghbRbhwvsptnx45/7/24 Team Status: Active Member Role Status Dates Marie Tejeda DO Primary Care Provider Active Start: March 02, 2025 Anat Perez MDOther ProviderActiveStart: March 02, 2025 Abdulaziz Root MDAttending ProviderActiveStart: March 02, 2025 Team MemberRelationshipSpecialtyStart DateEnd Date Marie Tejeda DO [address] [place] [address] PCP - GeneralInternal Medicine03/30/18 Anatoly Anne APRN.SENIOR ELECTRONICS TECHNICIAN [address] [place] [address] ReferringInternal Tmwvvgke96/16/24 Team Status: Inactive Member Role Status Dates Marie Tejeda DO Primary Care Provider Active Start: March 27, 2025 End: March 27, 2025Linda Aryan Perez ProviderActiveStart: March 27, 2025 End: March 27, 2025Team MemberRelationshipSpecialtyStart DateEnd Date Marie Tejeda DO [address] [place] [address] PCP - GeneralInternal Medicine01/08/23 Marie Tejeda DO [address] [facility] [address] [place] [address] PCP - ACO Reach09/10/23 Patrick Beard MD [address] [facility] [address] [place] [address] Referring HdwmwqdddZtxqvnyplrptmxic55/7/24 Andrey Grullon MD [address] [place] [address] Referring PwxmemmtqAcdhgxtrl55/7/24 Saúl Davis MD [address] [place] [address] [address], [address] [place] [address] Referring WihkyehdyLswsedwscp67/7/24Team MemberRelationshipSpecialtyStart Date End Date Marie Tejeda DO [address] [place] [address] PCP - GeneralInternal Medicine01/08/23 Marie Tejeda DO [address] [place] [address] PCP - ACO Reach09/10/23 Patrick Beard MD [address] [facility] [address] [place] [address] Referring FubvqipmxLsivqzzpjxrumwtn82/7/24 Andrey Grullon MD [address] [place] [address] Referring UythkvvrtGswbdhvfc41/7/24 Saúl Davis MD [address] [place] [address] [address], [address] [place] [address] Referring LueflycgcKrgqmdbzpe72/7/24 Team Status: Active Member Role/Relationship Status Dates Anat Perez MD Plate Keeper Active Shikha Aguilera Care ProviderActive Team Status: [...] DO [address] [place] [address] PCP - GeneralInternal Medicine01/08/23 Marie Tejeda DO [address] [place] [address] PCP - ACO Reach09/10/23 Patrick Beard MD [address] [facility] [address] [place] [address] Referring BaakulldeLgbfqlqurteasafm36/7/24 Andrey Grullon MD [address] [place] [address] Referring LtnasctmxIcutfbbmv53/7/24 Saúl Davis MD [address] [place] [address] [address], [address] [place] [address] Referring GjbmqtuepSbympibmbi54/7/24Team MemberRelationshipSpecialtyStart Date End Date Almita Deras DO [address] [place] [address] PCP - ACO Reach Marie Tejeda DO [address] [place] [address] PCP - GeneralInternal Medicine01/08/23 Marie Tejeda DO [address] [place] [address] PCP - ACO Reach09/10/23 Patrick Beard MD 1 [facility] [address] [place] [address] Referring BwffbllauRsrymiatlzmwepfg75/7/24 Andrey Grullon MD [address] [place] [address] Referring VfbnhcwuzCyejcecdi33/7/24 Saúl Davis MD [address] [place] [address] [address], [address] [place] [address] Referring IaxseyupxRarctjdqel43/7/24Team MemberRelationshipSpecialtyStart Date End Date Marie Tejeda DO [address] [place] [address] PCP - GeneralInternal Medicine01/08/23 Marie Tejeda DO [address] [place] [address] PCP - ACO Reach09/10/23 Patrick Beard MD 1 [facility] [address] [place] [address] Referring LogkqwcxeXndmvpyrnxqexfji75/7/24 Andrey Grullon MD [address] [place] [address] Referring XemmivypjInxcvhtdm61/7/24 Saúl Davis MD [address] [facility] [address] [place] [address] Referring IujhqaevbGyhcjyvxiz58/7/24 (unrecognized sect ion and content) No Status [...] CREATED AUTHOR AUTHOR'S ORGANIZ ATION 06/11/2022 [facility] DATE CREATED AUTHOR AUTHOR'S ORGANIZ ATION 06/12/2023 [facility] DATE CREATED AUTHOR AUTHOR'S ORGANIZ ATION 10/23/2023 [facility] DATE CREATED AUTHOR AUTHOR'S ORGANIZ ATION 11/18/2023 [facility] DATE CREATED AUTHOR AUTHOR'S ORGANIZ ATION 01/27/2024 [facility] DATE CREATED AUTHOR AUTHOR'S ORGANIZ ATION 05/05/[address] [facility] DATE CREATED AUTHOR AUTHOR'S ORGANIZ ATION 03/08/2025 [facility] DATE CREATED AUTHOR AUTHOR'S ORGANIZ ATION 05/03/2025 [facility] DATE CREATED AUTHOR AUTHOR'S ORGANIZ ATION 05/04/2025 [facility] DATE CREATED AUTHOR AUTHOR'S ORGANIZ ATION 05/19/2025 [facility] DATE CREATED AUTHOR AUTHOR'S ORGANIZ ATION 05/22/2025 [facility] DATE CREATED AUTHOR AUTHOR'S ORGANIZ ATION 05/23/2025 [facility] Source Comments (unrecognize d section and content) In the event this informatio n is protected by the Federal Confidentiality of Alcohol and Drug Abuse Patient Records regulations: The Federal rules restrict any use of the information to criminally investigate or prosecute any alcohol or drug abuse patient.[facility] the event this information is protected by the Federal Confidentiality of Alcohol and Drug Abuse Patient Records regulations: The Federal rules restrict any use of the information to criminally investigate or prosecute any alcohol or drug abuse patient.[facility] Center[facility] the event this information is protected by the Federal Confidentiality of Alcohol and Drug Abuse Patient Records regulations: The Federal rules restrict any use of the information to criminally investigate or prosecute any alcohol or drug abuse patient.[facility] Center[facility] the event this information is protected by the Federal Confidentiality of Alcohol and Drug Abuse Patient Records regulations: The Federal rules restrict any use of the information to criminally investigate or prosecute any alcohol or drug abuse patient.[facility] Center[facility] the event this information is protected by the Federal Confidentiality of Alcohol and Drug Abuse Patient Records regulations: The Federal rules restrict any use of the information to criminally investigate or prosecute any alcohol or drug abuse patient.[facility] CenterIn the event this information is protected by the Federal Confidentiality of Alcohol and Drug Abuse Patient Records regulations: The Federal rules restrict any use of the information to criminally investigate or prosecute any alcohol or drug abuse patient.[facility] CenterIn the event this information is protected by the Federal Confidentiality of Alcohol and Drug Abuse Patient Records regulations: The Federal rules restrict any use of the information to criminally investigate or prosecute any alcohol or drug abuse patient.[facility] CenterIn the event this information is protected by the Federal Confidentiality of Alcohol and Drug Abuse Patient Records regulations: The Federal rules restrict any use of the information to criminally investigate or prosecute any alcohol or drug abuse patient.[facility] CenterIn the event this information is protected by the Federal Confidentiality of Alcohol and Drug Abuse Patient Records regulations: The Federal rules restrict any use of the information to criminally investigate or prosecute any alcohol or drug abuse patient.[facility] CenterIn the event this information is protected by the Federal Confidentiality of Alcohol and Drug Abuse Patient Records regulations: The Federal rules restrict any use of the information to criminally investigate or prosecute any alcohol or drug abuse patient.[facility] CenterIn the event this information is protected by the Federal Confidentiality of Alcohol and Drug Abuse Patient Records regulations: The Federal rules restrict any use of the information to criminally investigate or prosecute any alcohol or drug abuse patient.[facility] CenterIn the event this information is protected by the Federal Confidentiality of Alcohol and Drug Abuse Patient Records regulations: The Federal rules restrict any use of the information to criminally investigate or prosecute any alcohol or drug abuse patient.[facility] CenterIn the event this information is protected by the Federal Confidentiality of Alcohol and Drug Abuse Patient Records regulations: The Federal rules restrict any use of the information to criminally investigate or prosecute any alcohol or drug abuse patient.[facility] CenterIn the event this information is protected by the Federal Confidentiality of Alcohol and Drug Abuse Patient Records regulations: The Federal rules restrict any use of the information to criminally investigate or prosecute any alcohol or drug abuse patient.[facility] CenterIn the event this information is protected by the Federal Confidentiality of Alcohol and Drug Abuse Patient Records regulations: The Federal rules restrict any use of the information to criminally investigate or prosecute any alcohol or drug abuse patient.[facility] CenterIn the event this information is protected by the Federal Confidentiality of Alcohol and Drug Abuse Patient Records regulations: The Federal rules restrict any use of the information to criminally investigate or prosecute any alcohol or drug abuse patient.[facility] CenterIn the event this information is protected by the Federal Confidentiality of Alcohol and Drug Abuse Patient Records regulations: The Federal rules restrict any use of the information to criminally investigate or prosecute any alcohol or drug abuse patient.[facility] CenterIn the event this information is protected by the Federal Confidentiality of Alcohol and Drug Abuse Patient Records regulations: The Federal rules restrict any use of the information to criminally investigate or prosecute any alcohol or drug abuse patient.[facility] CenterIn the event this information is protected by the Federal Confidentiality of Alcohol and Drug Abuse Patient Records regulations: The Federal rules restrict any use of the information to criminally investigate or prosecute any alcohol or drug abuse patient.[facility] CenterIn the event this information is protected by the Federal Confidentiality of Alcohol and Drug Abuse Patient Records regulations: The Federal rules restrict any use of the information to criminally investigate or prosecute any alcohol or drug abuse patient.[facility] CenterIn the event this information is protected by the Federal Confidentiality of Alcohol and Drug Abuse Patient Records regulations: The Federal rules restrict any use of the information to criminally investigate or prosecute any alcohol or drug abuse patient.[facility] CenterIn the event this information is protected by the Federal Confidentiality of Alcohol and Drug Abuse Patient Records regulations: The Federal rules restrict any use of the information to criminally investigate or prosecute any alcohol or drug abuse patient.[facility] CenterIn the event this information is protected by the Federal Confidentiality of Alcohol and Drug Abuse Patient Records regulations: The Federal rules restrict any use of the information to criminally investigate or prosecute any alcohol or drug abuse patient.[facility] CenterIn the event this information is protected by the Federal Confidentiality of Alcohol and Drug Abuse Patient Records regulations: The Federal rules restrict any use of the information to criminally investigate or prosecute any alcohol or drug abuse patient.[facility] CenterIn the event this information is protected by the Federal Confidentiality of Alcohol and Drug Abuse Patient Records regulations: The Federal rules restrict any use of the information to criminally investigate or prosecute any alcohol or drug abuse patient.[facility] CenterIn the event this information is protected by the Federal Confidentiality of Alcohol and Drug Abuse Patient Records regulations: The Federal rules restrict any use of the information to criminally investigate or prosecute any alcohol or drug abuse patient.[facility] CenterIn the event this information is protected by the Federal Confidentiality of Alcohol and Drug Abuse Patient Records regulations: The Federal rules restrict any use of the information to criminally investigate or prosecute any alcohol or drug abuse patient.[facility] CenterIn the event this information is protected by the Federal Confidentiality of Alcohol and Drug Abuse Patient Records regulations: The Federal rules restrict any use of the information to criminally investigate or prosecute any alcohol or drug abuse patient.[facility] CenterIn the event this information is protected by the Federal Confidentiality of Alcohol and Drug Abuse Patient Records regulations: The Federal rules restrict any use of the information to criminally investigate or prosecute any alcohol or drug abuse patient.[facility] CenterIn the event this information is protected by the Federal Confidentiality of Alcohol and Drug Abuse Patient Records regulations: The Federal rules restrict any use of the information to criminally investigate or prosecute any alcohol or drug abuse patient.[facility] CenterIn the event this information is protected by the Federal Confidentiality of Alcohol and Drug Abuse Patient Records regulations: The Federal rules restrict any use of the information to criminally investigate or prosecute any alcohol or drug abuse patient.[facility] CenterIn the event this information is protected by the Federal Confidentiality of Alcohol and Drug Abuse Patient Records regulations: The Federal rules restrict any use of the information to criminally investigate or prosecute any alcohol or drug abuse patient.[facility] CenterIn the event this information is protected by the Federal Confidentiality of Alcohol and Drug Abuse Patient Records regulations: The Federal rules restrict any use of the information to criminally investigate or prosecute any alcohol or drug abuse patient.[facility] CenterIn the event this information is protected by the Federal Confidentiality of Alcohol and Drug Abuse Patient Records regulations: The Federal rules restrict any use of the information to criminally investigate or prosecute any alcohol or drug abuse patient.[facility] CenterIn the event this information is protected by the Federal Confidentiality of Alcohol and Drug Abuse Patient Records regulations: The Federal rules restrict any use of the information to criminally investigate or prosecute any alcohol or drug abuse patient.[facility] CenterIn the event this information is protected by the Federal Confidentiality of Alcohol and Drug Abuse Patient Records regulations: The Federal rules restrict any use of the information to criminally investigate or prosecute any alcohol or drug abuse patient.[facility] CenterIn the event this information is protected by the Federal Confidentiality of Alcohol and Drug Abuse Patient Records regulations: The Federal rules restrict any use of the information to criminally investigate or prosecute any alcohol or drug abuse patient.[facility] CenterIn the event this information is protected by the Federal Confidentiality of Alcohol and Drug Abuse Patient Records regulations: The Federal rules restrict any use of the information to criminally investigate or prosecute any alcohol or drug abuse patient.[facility] Goals (unrecognized section and content) [...] BE BASED ON THE PRIMARY CLINICAL RECORDS. [facility] [employer] [facility]. provides no warranty or guarantee of the accuracy or completeness of information in this document.
[2025-06-21] MEDS: ATORVASTATIN CALCIUM 40 MG TABLET PO (21:24)
[2025-06-22] VITALS (20 sets, daily range): BP systolic 121–155; BP diastolic 63–73; PULSE 60–86; TEMP 36.4–36.8; O2SAT 91–94
[2025-06-22] MEDS: 0.9 % SODIUM CHLORIDE 1,000 ML 125 ML IV ×3 (02:45→18:52)
[2025-06-22] MEDS: ACETAMINOPHEN 325 MG TABLET 650 MG PO ×2 (05:53→11:23)
[2025-06-22] MEDS: PANTOPRAZOLE SODIUM 40 MG VIAL IV (05:53)
[2025-06-22] MEDS: PIPERACILLIN SODIUM/TAZOBACTAM 3.375 GM in 0.9 % SODIUM CHLORIDE 50 ML IV ×3 (05:53→21:45)
[2025-06-22] MEDS: HEPARIN SODIUM (PORCINE) 5,000 UNIT/ML VIAL 5000 UNIT SUBQ ×3 (05:53→21:39)
[2025-06-22 06:04] LABS: Alanine Aminotransferase 17 U/L (16-63); Albumin Globulin Ratio 0.5; Albumin Level 2.0 g/dL (3.4-5.0); Alkaline Phosphatase 115 U/L (46-116); Anion Gap 9.6; Aspartate Amino Transferase 17 U/L (15-37); Blood Urea Nitrogen 38.0 mg/dL (7.0-18.0); Calcium 8.1 mg/dL (8.5-10.1); Carbon Dioxide 24.3 mmol/L (21.0-32.0); Chloride 105 mmol/L (98-107); Estimated GFR (African America >60 (>=60 mL/min/1.73m^2); Estimated GFR (Non-African Ame 56 (>=60 mL/min/1.73m^2); Globulin 3.8 g/dL; Glucose 160 mg/dL (74-106); Magnesium 1.9 mg/dL (1.8-2.4); Potassium 3.9 mmol/L (3.5-5.1); Sodium 135 mmol/L (136-145); Total Protein 5.8 g/dL (6.4-8.2)
[2025-06-22 06:07] LABS: Hemoglobin 7.9 g/dL (14.0-18.0); Immature Granulocytes Abs Auto 0.04 10^3/uL (0.00-0.03); Immature Granulocytes Pct Auto 0.3 % (0.0-0.5); Lymphocytes Absolute Auto 0.7 10^3/uL (1.2-3.8); Mean Corpuscular HGB Conc 34.3 g/dL (29.9-35.2); Mean Corpuscular Hemoglobin 26.9 pg (25.9-34.0); Mean Corpuscular Volume 78.2 fL (80.0-94.0); Platelet Count 253 10^3/uL (150-450); Red Blood Count 2.94 10^6/uL (4.70-6.10); White Blood Count 12.6 10^3/uL (4.0-11.0)
[2025-06-22 06:24] LABS: Hematocrit 23.0 % (42.0-54.0)
[2025-06-22] MEDS: ASPIRIN 81 MG TAB.CHEW PO (08:23)
[2025-06-22] MEDS: TAMSULOSIN HCL 0.4 MG CAPSULE PO (08:24)
[2025-06-22] MEDS: PAROXETINE HCL 20 MG TABLET 40 MG PO (08:24)
[2025-06-22] MEDS: [UNRECOGNIZED DRUG - OTHER] 2 CAP PO ×3 (08:24→16:42)
[2025-06-22] MEDS: INSULIN ASPART 300 UNIT/3 ML PEN SUBQ ×4 (08:26→21:48)
--- NOTE | 2025-06-22 09:09 | SWNOTE1 ---
VANE did hear back from Seamus at [facility] and they do have a bed for pt. VANE did ask Seamus if it was a private room, waiting to hear back.
--- NOTE | 2025-06-22 10:17 | SWNOTE1 ---
Seamus did reach back out to SW and pt will have a private room at [facility]. to let pt and know.
[2025-06-22 10:22] LABS: Ferritin 180.0 ng/mL (26.0-388.0); Folate 18.40 ng/mL (8.60-58.90)
--- NOTE | 2025-06-22 10:25 | PM.IMPN1 ---
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 I will discharge the patient a Kimble when time comes for discharge - DVT prophylax with HSQ - G I prophylaxis with IV pantoprazole every 24 hours 40 mg - I reconciled the patient's insulin orders to make sure his blood glucose under control -For pain control, I will start with Tylenol 6 and 50 every 6 hours as needed for pain 1-7/10 and IV morphine 1 mg every 4-6 hours for pain more than 7/10 with close monitoring of vitals - CODE STATUS is DNR CCA without intubation. I clarified that with the patient at bedside that in the chart - Discussed the plan with the patient in details. Answered all his question 06/21/2025 his renal function improved with creatinine of 1.5. After Kimble placement. I will discharge him with Kimble when the time comes for discharge. Continue with IV Zosyn, unfortunately we cannot get an MRI given the patient's pacemaker placed. I ordered CT lumbar spine and CT thoracic brain without contrast to better delineate the anatomy and the spine there. Patient does not have any alarming features in terms of said anesthesia urinary retention or bowel incontinence. No fever no chills overnight. Will continue with IV antibiotics, appreciate PT/OT recommending SNF. Continue with pain management as is. Patient is not on an insulin pump anymore and his insulin subcutaneous orders were adjusted by night team I will keep an eye on his glucose and make adjustments accordingly. 06/22/2025 Creatinine improving further to 1.22. Urine output is satisfactory. His urine culture growing Staph aureus, on IV Zosyn being dosed by pharmacy. I added Vancomycin IV as well. Going to SNF, the [facility] tomorrow hopefully once I have the [facility]OR[facility] back of the urine culture and decite on the antibiotics choice. Discussed the plan with the pt and at bedside. Answered their questions Internal Medicine - PN: Subj Subjective Interval history: Patient seen and examined at bedside. States that his back pain is better. No fever or chills. No nausea or vomiting. Labs were unremarkable today. Exam Narrative Exam Narrative: General:The patient appears well and in no apparent distress. Patient is resting comfortably on cart. He is ill-appearing. Pleasant and cooperative. Skin:Warm, dry, no pallor noted.There is no rash noted. Head:Normocephalic, atraumatic Neck: Soft, supple, no JVD, no lymphadenopathy, thyroid Eye: Normal conjunctiva, no drainage Ears, Nose, Mouth, and Throat: oral mucosa is moist. Nares patent. Cardiovascular:Regular Rate and Rhythm Respiratory:Patient is in no distress, no accessory muscle use, lungs are clear to auscultation, no wheezing, rales or rhonchi Back: His back is examined there is no bruise rash or abrasion. He has some tenderness in the lumbar spine area more to the right, paraspinal tenderness rather than spine tenderness He does have bilateral passive and active straight leg test. No hyperreflexia. No saddle anesthesia reported by the pain GI: Soft and nontender, no signs of acute abdomen, no Musculoskeletal: The patient has no evidence of calf tenderness, no pitting edema, symmetrical pulses noted bilaterally Neurological:A&O x 3 and following commands, normal speech, no focal deficit but generalized weakness in the bilateral lower extremities likely from pain from his back. Otherwise no cranial nerve deficits. Constitutional Vital Signs, click to edit/add: Last Vital Signs Temp 98.2 F 06/22/25 07:17 Pulse 69 06/22/25 09:58 Resp 24 H 06/22/25 07:17 BP 121/63 06/22/25 07:17 Pulse Ox 93 L 06/22/25 07:17 O2 Del Method Room Air 06/22/25 07:49 Internal Medicine - PN: Obj Da Labs Labs: Laboratory Results - last 24 hr 06/21/25 06/21/25 06/22/25 11:06 15:55 04:38 WBC 12.6 H RBC 2.94 L Hgb 7.9 L Hct 23.0 L* MCV 78.2 L MCH 26.9 MCHC 34.3 RDW 14.6 Plt Count 253 MPV 12.4 Neut % (Auto) 82.7 H Lymph % (Auto) 5.7 L [place] % (Auto) 10.1 Eos % (Auto) 1.0 Baso % (Auto) 0.2 Neut # (Auto) 10.4 H Lymph # (Auto) 0.7 L [place] # (Auto) 1.3 H Eos # (Auto) 0.1 Baso # (Auto) 0.0 Abs Immat Gran (auto) 0.04 H Imm/Tot Granulo (auto) 0.3 Sodium 135 L Potassium 3.9 Chloride 105 Carbon Dioxide 24.3 Anion Gap 9.6 BUN 38.0 H Creatinine 1.22 Est GFR ( Amer) >60 Est GFR (Non-Af Amer) 56 L BUN/Creatinine Ratio 31.1 Glucose 160 H Calcium 8.1 L Magnesium 1.9 Total Bilirubin 0.3 AST 17 ALT 17 Alkaline Phosphatase 115 Total Protein 5.8 L Albumin 2.0 L Globulin 3.8 Albumin/Globulin Ratio 0.5 POC Glucose 287 H 100 Urinary Catheter Management Urinary Catheter Management Urethral: Cath placed during this visit: yes Urethral indwelling: Yes Reason for continuing: acute urinary retention Insertion date: 06/20/25 Insertion time: 16:44
--- NOTE | 2025-06-22 10:25 | SWNOTE1 ---
SW stopped in to let pt know that [facility] has a private room and [facility] has a semi-private room. Pt voiced he is going to the [facility]. He spoke to his about it and that is what they decided. SW to call as well. No discharge today for pt.
[2025-06-22 10:26] LABS: Iron 7.0 ug/dL (65.0-175.0); Percent Iron Saturation 3.5 %; Total Iron Binding Capacity 202.0 ug/dL (250.0-450.0)
--- NOTE | 2025-06-22 10:30 | SWNOTE1 ---
VANE called pt's , Latosha, and confirmed she is in agreement with pt going to [facility] once he is stable for discharge.
--- NOTE | 2025-06-22 10:41 | CM.NOTE ---
Rounds made with Dr. Hidalgo, discussed plan of care with pt and . No discharge today, pt will discharge to skilled when medically stable. Continue treatment as ordered.
--- NOTE | 2025-06-22 11:00 | CM.NOTE ---
CRF completed and signed by Dr. Hidalgo, possible discharge tomorrow.
--- NOTE | 2025-06-22 11:44 | SWNOTE1 ---
VANE received a message from Seamus at [facility] and pt is in to his co-pay days and Seamus spoke to pt's and she is not going to pay. Seamus stated his secondary is inactive? SW to reach out to billers to confirm.
[2025-06-22] MEDS: VANCOMYCIN HCL 1,000 MG in 0.9 % SODIUM CHLORIDE 250 ML 250 MG IV (11:52)
--- NOTE | 2025-06-22 12:37 | SWNOTE1 ---
VANE called pt's , Latosha, and asked her about the supplement. Rose did speak with Seamus at [employer]. Latosha was confused by the [employer] secondary being in active. She is unsure of why this would be and does not think it would. She provided SW with policy number and a phone number. VANE called [employer] insurance and spoke to Ez the reprsentative. Ez was able to look up pt and he was active. He voiced they follow medicare guidelines and they would pay the co-pay amount as long as pt has required 3 day inpt stay. Ez also provided SW with an email for [employer] to use to check insurance. They do not cover past 100 days. VANE called Seamus at the [employer] back and let her know this information. VANE provided the website to Seamus. Seamus then emailed there home base in [place] who runs the benefits. Seamus to let VANE know.
--- NOTE | 2025-06-22 13:05 | SWNOTE1 ---
SW received an email from Seamus and pt's secondary is active, Aidan did confirm. SW to call .
[2025-06-22] MEDS: MORPHINE SULFATE 2 MG/ML SYRINGE 1 MG IV ×2 (13:36→21:40)
--- NOTE | 2025-06-22 13:55 | SWNOTE1 ---
VANE called pt's , Latosha, and let her know the [facility] and myself did confirm the secondary is active and pt will be covered under co-pay days. The plan is for pt to go to [facility] once he is stable for discharge.
--- NOTE | 2025-06-22 15:50 | SWNOTE1 ---
SW took packet out to med/surge floor along with CRF in case of discharge over the weekend. Plan is for pt to go to [facility]/.
[2025-06-22] MEDS: METOPROLOL SUCCINATE 25 MG TAB.ER.24H 12.5 MG PO (21:38)
[2025-06-22] MEDS: ATORVASTATIN CALCIUM 40 MG TABLET PO (21:39)
[2025-06-22] MEDS: INSULIN GLARGINE 300 UNIT/3 ML INSULN.PEN 15 UNIT SQ (21:48)
[2025-06-23] VITALS (27 sets, daily range): BP systolic 121–165; BP diastolic 66–84; PULSE 59–78; TEMP 36.6–37.1; O2SAT 91–95
[2025-06-23] MEDS: 0.9 % SODIUM CHLORIDE 1,000 ML 125 ML IV ×2 (03:56→17:03)
[2025-06-23 04:07] LABS: Vitamin B12 852 pg/mL (232-1245)
[2025-06-23] MEDS: PIPERACILLIN SODIUM/TAZOBACTAM 3.375 GM in 0.9 % SODIUM CHLORIDE 50 ML IV (05:47)
[2025-06-23] MEDS: PANTOPRAZOLE SODIUM 40 MG VIAL IV ×2 (05:48→17:01)
[2025-06-23] MEDS: HEPARIN SODIUM (PORCINE) 5,000 UNIT/ML VIAL 5000 UNIT SUBQ ×3 (05:48→21:59)
[2025-06-23 06:39] LABS: Hemoglobin 7.2 g/dL (14.0-18.0); Immature Granulocytes Abs Auto 0.04 10^3/uL (0.00-0.03); Immature Granulocytes Pct Auto 0.3 % (0.0-0.5); Lymphocytes Absolute Auto 0.5 10^3/uL (1.2-3.8); Mean Corpuscular HGB Conc 35.6 g/dL (29.9-35.2); Mean Corpuscular Hemoglobin 27.5 pg (25.9-34.0); Mean Corpuscular Volume 77.1 fL (80.0-94.0); Platelet Count 306 10^3/uL (150-450); Red Blood Count 2.62 10^6/uL (4.70-6.10); White Blood Count 11.9 10^3/uL (4.0-11.0)
[2025-06-23 07:01] LABS: Alanine Aminotransferase 17 U/L (16-63); Albumin Globulin Ratio 0.5; Albumin Level 1.9 g/dL (3.4-5.0); Alkaline Phosphatase 110 U/L (46-116); Anion Gap 11.4; Aspartate Amino Transferase 18 U/L (15-37); Blood Urea Nitrogen 26.0 mg/dL (7.0-18.0); Calcium 7.8 mg/dL (8.5-10.1); Carbon Dioxide 22.5 mmol/L (21.0-32.0); Chloride 106 mmol/L (98-107); Estimated GFR (African America >60 (>=60 mL/min/1.73m^2); Estimated GFR (Non-African Ame 59 (>=60 mL/min/1.73m^2); Globulin 3.7 g/dL; Glucose 96 mg/dL (74-106); Magnesium 1.6 mg/dL (1.8-2.4); Potassium 3.9 mmol/L (3.5-5.1); Sodium 136 mmol/L (136-145); Total Protein 5.6 g/dL (6.4-8.2)
[2025-06-23 07:11] LABS: Hematocrit 20.2 % (42.0-54.0)
[2025-06-23] MEDS: PAROXETINE HCL 20 MG TABLET 40 MG PO (08:04)
[2025-06-23] MEDS: MORPHINE SULFATE 2 MG/ML SYRINGE 1 MG IV ×2 (08:04→14:51)
[2025-06-23] MEDS: [UNRECOGNIZED DRUG - OTHER] 2 CAP PO ×3 (08:04→17:01)
[2025-06-23] MEDS: ACETAMINOPHEN 325 MG TABLET 650 MG PO (08:04)
[2025-06-23] MEDS: TAMSULOSIN HCL 0.4 MG CAPSULE PO (08:04)
[2025-06-23] MEDS: ASPIRIN 81 MG TAB.CHEW PO (08:04)
--- NOTE | 2025-06-23 09:10 | PT.DAILY ---
Physical Therapy Daily Note PT Daily Note/Assess Start: 06/22/25 12:33 Freq: Status: Active Protocol: Document 06/23/25 09:08 HERBIE (Rec: 06/23/25 09:10 HERBIE [id number]) Physical Therapy Daily Note/Assessment Time In/Time Out Time In 08:40 Time Out 08:52 Pain In Pain N/A Pain Out Pain N/A Subjective Subjective Pt supine upon arrival. Initially refusing treatment but with motivation and education pt becomes agreeable to bed level ex. Reports he is in alot of pain and declines getting out of bed into chair at this time. Therapeutic Exercise Time Therapeutic Exercise 8 Minutes (minutes) Therapeutic Exercise 1 Units Therapeutic Exercise Treatment Therapeutic Exercise Supine bilat LE strengthening ex performed 10x ea. AA Treatment for SLR on this date due to increased back pain when performed actively. Pt remains supine upon completion with call light with in reach and needs met. Total Physical Therapy Time Total Therapy 8 Minutes Total Physical 1 Therapy Units Summary Daily Note Summary Limited session due to pain and cooperation. Planned dc to [facility] tomorrow.
[2025-06-23] MEDS: MAGNESIUM SULFATE IN WATER 2 GM/50 ML PREMIX IV (09:13)
--- NOTE | 2025-06-23 09:17 | PM.IMHP1 ---
Internal Medicine - H&P: HPI History of Present Illness Chief complaint: UTI + Leukocytosis Narrative: Patient seen and examined at bedside. He states that his back pain is not getting better. He feels tired today. He denies any fever or chills or nausea or vomiting though. His hemoglobin is still trending down he did have a bone this morning he states no melena or hematochezia vitals were stable. Review of Systems ROS Status of ROS 10 or more systems reviewed and unremarkable except as noted in history and below [facility] Medical History (Updated 06/20/25 @ 18:00 by Lisa Hidalgo MD) H/O chronic pancreatitis ?Z87.19 - Personal history of other diseases of the digestive system (ICD-10) CAD (coronary artery disease) ?I25.10 - Atherosclerotic heart disease of [place] coronary artery without angina pectoris (ICD-10) Insulin dependent diabetes mellitus Atherosclerosis ?I70.90 - Unspecified atherosclerosis (ICD-10) Closed fracture of right hip requiring operative repair ?S72.001A - Fracture of unspecified part of neck of right femur, initial encounter for closed fracture (ICD-10) Diabetes ?E11.9 - Type 2 diabetes mellitus without complications (ICD-10) Surgical History (Updated 08/22/23 @ 10:52 by Lamar Mahan) H/O heart artery stent ?Z95.5 - Presence of coronary angioplasty implant and graft (ICD-10) 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 (ICD-10) 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) Family History (Updated 04/10/25 @ 05:51 by Thania Zhang RN) Other Family history of myocardial infarction Social History (Updated 04/10/25 @ 05:52 by Thania Zhang RN) Within the past year, how often did you have a drink containing alcohol: monthly or less Smoking status: Former smoker Non-prescribed substance use: denies use Highest level of school completed/degree received: some college, no degree Are you now , , , , never or living with a partner: In a typical week, how many times do you talk on the telephone with family, friends, or neighbors: twice per week How often do you get together with friends or relatives: twice per week Little interest or pleasure in doing things: not at all Feeling down, depressed, or hopeless: not at all Feel stressed/tense/nervous/anxious/difficulty sleeping: to some extent Do you think of yourself as: straight/heterosexual Gender Identity: male Meds Home Medications and Allergies Home Medications ?Medication ?Instructions ?Recorded ?Confirmed ?Type [id number](pork)24,000-76,000-120,000 2 cap PO TIDWM 08/21/23 06/20/25 History unit capsule,del rel (Creon) nitroglycerin 0.4 mg sublingual 0.4 mg sublingual Q5M PRN chest 08/21/23 06/20/25 History tablet pain atorvastatin 40 mg tablet 40 mg PO .qhs 04/10/25 06/20/25 History blood-glucose sensor (Dexcom G7 04/10/25 06/20/25 History Sensor device) insulin pump cart,auto,BT,G6/7 04/10/25 06/20/25 History (Omnipod 5 G6-G7 Pods (Gen 5) subcutaneous cartridge) aspirin 81 mg chewable tablet 81 mg PO QD #0 tabs 04/13/25 06/20/25 Rx glucagon 1 mg solution for 1 mg IV Q15M PRN Hypoglycemia #0 ea 04/13/25 06/20/25 Rx injection (Glucagon Emergency Kit) insulin aspart U-100 100 unit/mL 3 - 15 unit (0.03 - 0.15 mL) 04/13/25 06/20/25 Rx (3 mL) subcutaneous pen (Novolog subcut ACHS #0 mL FlexPen U-100 Insulin aspart) losartan 25 mg tablet 25 mg PO DAILY #30 tabs 04/13/25 06/20/25 Rx tamsulosin 0.4 mg capsule 0.4 mg PO QD #0 caps 04/13/25 06/20/25 Rx insulin glargine 100 unit/mL (3 12 unit subcut QD PRN INSULIN PUMP 06/20/25 06/20/25 History mL) subcutaneous pen (Lantus FAILURE Solostar U-100 Insulin) metoprolol succinate 25 mg 12.5 mg PO .QHS 06/20/25 06/20/25 History tablet,extended release 24 hr paroxetine HCl 40 mg tablet 40 mg PO .qd 06/20/25 06/20/25 History spironolactone 25 mg tablet 25 mg PO .QD 06/20/25 06/20/25 History Allergies Allergy/AdvReac Type Severity Reaction Status Date / Time No Known Drug Allergies Allergy Verified 06/20/25 12:25 Exam Narrative Exam Narrative: General:The patient appears well and in no apparent distress. Patient is resting comfortably on cart. He is ill-appearing. Pleasant and cooperative. Skin:Warm, dry, no pallor noted.There is no rash noted. Head:Normocephalic, atraumatic Neck: Soft, supple, no JVD, no lymphadenopathy, thyroid Eye: Normal conjunctiva, no drainage Ears, Nose, Mouth, and Throat: oral mucosa is moist. Nares patent. Cardiovascular:Regular Rate and Rhythm Respiratory:Patient is in no distress, no accessory muscle use, lungs are clear to auscultation, no wheezing, rales or rhonchi Back: His back is examined there is no bruise rash or abrasion. He has some tenderness in the lumbar spine area more to the right, paraspinal tenderness rather than spine tenderness He does have bilateral passive and active straight leg test. No hyperreflexia. No saddle anesthesia reported by the pain GI: Soft and nontender, no signs of acute abdomen, no Musculoskeletal: The patient has no evidence of calf tenderness, no pitting edema, symmetrical pulses noted bilaterally Neurological:A&O x 3 and following commands, normal speech, no focal deficit but generalized weakness in the bilateral lower extremities likely from pain from his back. Otherwise no cranial nerve deficits. Constitutional Vital Signs, click to edit/add: Last Vital Signs Temp 98.1 F 06/23/25 07:37 Pulse 64 06/23/25 07:55 Resp 18 06/23/25 07:37 BP 145/71 H 06/23/25 07:37 Pulse Ox 94 L 06/23/25 07:37 O2 Del Method Room Air 06/23/25 07:37 Internal Medicine - H&P: Reslt Labs Labs: Short CBC 06/23/25 Range/Units 05:43 WBC 11.9 H (4.0-11.0) 10^3/uL Hgb 7.2 L (14.0-18.0) g/dL Hct 20.2 L* (42.0-54.0) % Plt Count 306 (150-450) 10^3/uL BMP 06/23/25 05:43 Sodium 136 Potassium 3.9 Chloride 106 Carbon Dioxide 22.5 BUN 26.0 H Creatinine 1.17 Glucose 96 Calcium 7.8 L Liver Function 06/23/25 Range/Units 05:43 Total Bilirubin 0.3 (0.2-1.0) mg/dL AST 18 (15-37) U/L ALT 17 (16-63) U/L Alkaline Phosphatase 110 (46-116) U/L Albumin 1.9 L (3.4-5.0) g/dL Urinary Catheter Management Urinary Catheter Management Urethral: Cath placed during this visit: yes Urethral indwelling: Yes Reason for continuing: acute urinary retention Insertion date: 06/20/25 Insertion time: 16:44 Assessment and Plan Assessment and Plan (1) Urinary tract infection: (2) BPH (benign prostatic hyperplasia): (3) Urinary retention: (4) DENISHA (acute kidney injury): Plan Complicated UTI in the setting of recent urologic procedure Staph bacteremia Ruling out discitis? Acute on chronic anemia likely multifactorial iron deficiency and anemia of inflammation, GI losses less likely DENISHA on CKD likely in the setting of obstructive uropathy from prostatomegaly Recent fall with low back pain with no alarming features Debility and frailty - Admit patient to medical floor with telemetry - I will cover Pseudomonas so we will start Zosyn IV to be dosed by pharmacy - Follow-up on urine and blood culture - Obtain MRI lumbar spine and MRI thoracic spine without contrast to better delineate the patient's low back pain/fracture - PT/OT evaluation - I reconciled the patient's medication -Urology recommended outpatient follow-up and they are okay with admitting the patient here. I will discharge the patient a Kimble when time comes for discharge - DVT prophylax with HSQ - G I prophylaxis with IV pantoprazole every 24 hours 40 mg - I reconciled the patient's insulin orders to make sure his blood glucose under control -For pain control, I will start with Tylenol 6 and 50 every 6 hours as needed for pain 1-7/10 and IV morphine 1 mg every 4-6 hours for pain more than 7/10 with close monitoring of vitals - CODE STATUS is DNR CCA without intubation. I clarified that with the patient at bedside that in the chart - Discussed the plan with the patient in details. Answered all his question 06/21/2025 his renal function improved with creatinine of 1.5. After Kimble placement. I will discharge him with Kimble when the time comes for discharge. Continue with IV Zosyn, unfortunately we cannot get an MRI given the patient's pacemaker placed. I ordered CT lumbar spine and CT thoracic brain without contrast to better delineate the anatomy and the spine there. Patient does not have any alarming features in terms of said anesthesia urinary retention or bowel incontinence. No fever no chills overnight. Will continue with IV antibiotics, appreciate PT/OT recommending SNF. Continue with pain management as is. Patient is not on an insulin pump anymore and his insulin subcutaneous orders were adjusted by night team I will keep an eye on his glucose and make adjustments accordingly. 06/22/2025 Creatinine improving further to 1.22. Urine output is satisfactory. His urine culture growing Staph aureus, on IV Zosyn being dosed by pharmacy. I added Vancomycin IV as well. Going to SNF, the [facility] tomorrow hopefully once I have the DORON back of the urine culture and choice on the antibiotics choice. Discussed the plan with the pt and at bedside. Answered their questions 06/23/2025 blood cultures positive for Staph aureus, no MRSA genes on the [employer] done from the ED on 06/20/2025, I stopped his vancomycin and Zosyn and start him on IV cefazolin to be dosed by pharmacy. Unfortunately we cannot do an MRI of the back given his pacemaker. I will treat him given his back pain along with bacteremia now as discitis/osteomyelitis. Patient does not have any alarming symptoms like saddle anesthesia or retention or fecal incontinence. That being said, I will repeat his blood cultures tomorrow to ensure clearance. I also ordered an echocardiogram to rule out vegetations. I discussed the dosing and the antibiotic choice with pharmacy. Also, his hemoglobin has been trending down, he does not report any melena or hematochezia. I started him on pantoprazole IV 40 mg twice daily instead of every 24 hours. I also ordered occult blood. I ordered 1 unit of packed RBCs. His iron is very low so I will start him on ferrous sulfate p.o. 650 twice daily for now. Unfortunately patient cannot be discharged with all those updates. I discussed the plan with him in details. Answered all his questions
[2025-06-23] MEDS: 0.9 % SODIUM CHLORIDE 250 ML 10 ML IV (12:00)
[2025-06-23] MEDS: CEFAZOLIN SODIUM/DEXTROSE,ISO 2 GM/50 ML PIGGYBACK IV ×2 (13:44→21:59)
[2025-06-23] MEDS: INSULIN ASPART 300 UNIT/3 ML PEN SUBQ ×2 (17:01→21:59)
[2025-06-23] MEDS: ATORVASTATIN CALCIUM 40 MG TABLET PO (21:58)
[2025-06-23] MEDS: METOPROLOL SUCCINATE 25 MG TAB.ER.24H 12.5 MG PO (21:59)
[2025-06-23] MEDS: INSULIN GLARGINE 300 UNIT/3 ML INSULN.PEN 15 UNIT SQ (22:00)
[2025-06-24] VITALS (10 sets, daily range): BP systolic 146–153; BP diastolic 76–81; PULSE 60–79; TEMP 36.3–36.8; O2SAT 90–94
[2025-06-24] MEDS: 0.9 % SODIUM CHLORIDE 1,000 ML 125 ML IV ×2 (01:41→08:29)
[2025-06-24] MEDS: HEPARIN SODIUM (PORCINE) 5,000 UNIT/ML VIAL 5000 UNIT SUBQ ×2 (05:06→13:23)
[2025-06-24] MEDS: PANTOPRAZOLE SODIUM 40 MG VIAL IV (05:06)
[2025-06-24] MEDS: CEFAZOLIN SODIUM/DEXTROSE,ISO 2 GM/50 ML PIGGYBACK IV ×2 (05:06→13:34)
[2025-06-24 06:21] LABS: Hematocrit 25.8 % (42.0-54.0); Hemoglobin 8.8 g/dL (14.0-18.0); Immature Granulocytes Abs Auto 0.04 10^3/uL (0.00-0.03); Immature Granulocytes Pct Auto 0.4 % (0.0-0.5); Lymphocytes Absolute Auto 0.9 10^3/uL (1.2-3.8); Mean Corpuscular HGB Conc 34.1 g/dL (29.9-35.2); Mean Corpuscular Hemoglobin 26.2 pg (25.9-34.0); Mean Corpuscular Volume 76.8 fL (80.0-94.0); Platelet Count 357 10^3/uL (150-450); Red Blood Count 3.36 10^6/uL (4.70-6.10); White Blood Count 11.4 10^3/uL (4.0-11.0)
[2025-06-24 06:38] LABS: Alanine Aminotransferase 15 U/L (16-63); Albumin Globulin Ratio 0.5; Albumin Level 1.9 g/dL (3.4-5.0); Alkaline Phosphatase 129 U/L (46-116); Anion Gap 4.5; Aspartate Amino Transferase 20 U/L (15-37); Blood Urea Nitrogen 23.0 mg/dL (7.0-18.0); Calcium 8.1 mg/dL (8.5-10.1); Carbon Dioxide 23.8 mmol/L (21.0-32.0); Chloride 99 mmol/L (98-107); Estimated GFR (African America >60 (>=60 mL/min/1.73m^2); Estimated GFR (Non-African Ame >60 (>=60 mL/min/1.73m^2); Globulin 4.1 g/dL; Glucose 89 mg/dL (74-106); Magnesium 1.7 mg/dL (1.8-2.4); Potassium 3.3 mmol/L (3.5-5.1); Total Protein 6.0 g/dL (6.4-8.2)
[2025-06-24 06:51] LABS: Sodium 124 mmol/L (136-145)
[2025-06-24] MEDS: MORPHINE SULFATE 2 MG/ML SYRINGE 1 MG IV (08:27)
[2025-06-24] MEDS: PAROXETINE HCL 20 MG TABLET 40 MG PO (08:27)
[2025-06-24] MEDS: TAMSULOSIN HCL 0.4 MG CAPSULE PO (08:27)
[2025-06-24] MEDS: ACETAMINOPHEN 325 MG TABLET 650 MG PO (08:27)
[2025-06-24] MEDS: [UNRECOGNIZED DRUG - OTHER] 2 CAP PO ×2 (08:27→13:23)
[2025-06-24] MEDS: ASPIRIN 81 MG TAB.CHEW PO (08:27)
--- NOTE | 2025-06-24 12:42 | P.IMPN_ITS ---
Progress Note: A&P Assessment and Plan (1) Urinary tract infection: (2) BPH (benign prostatic hyperplasia): (3) Urinary retention: (4) DENISHA (acute kidney injury): (5) Acute hyponatremia: (6) Back pain: Plan Assessment: Complicated UTI in the setting of recent urologic procedure with methicillin sensitive Staphylococcus aureus Methicillin sensitive Staphylococcus bacteremia Ruling out discitis? Acute on chronic anemia likely multifactorial iron deficiency and anemia of infl ammation, GI losses less likely DENISHA on CKD likely in the setting of obstructive uropathy from prostatomegaly - Kimble catheter placed on admission. Creatinine resolved nicely. Recent fall with low back pain Debility and frailty Pacemaker in place. Therefore not able to complete an MRI here at the [facility] from what information has been conveyed to me. Acute hyponatremia on 06/24/2025, likely due to hypervolemia. Additional plan for today. The patient has had either oral Tylenol or IV morphine for pain control. Will start oral pain control regimen with Celebrex 100 mg p.o. twice daily. Oxycodone 2.5 mg p.o. every 4 hours as needed mild pain and oxycodone 5 mg p.o. every 4 hours as needed moderate pain. A Lidoderm patch can be placed right over the area of pain, in the middle of his back on the spine at the Bite-A-Mins of the shoulder blades at nighttime to help him have less pain while he sleeps. This should be removed 12 hours later. In the morning check BMP, CBC, ESR, and CRP. For the volume overload administer 20 mg of Lasix IV now. Stop IV fluids. Strict 1200 mL liter oral fluid restriction. Note: If he drinks of boost or an Ensure type protein shake this does not count against the fluid restriction as it is considered food and not free water. Internal Medicine - PN: Subj Subjective Interval history: Laboratory update for today: White blood count has steadily improved during the hospital stay, starting at 17.5, then 15.1, then 12.6, then 11.9, and then 11.4 today. His hemoglobin count has been stable after transfusion: He started at 9.2, then went to 8.2, then 7.9, does not have a 0.2 yesterday but today is 8.8. Platelet counts have been quite normal at [address] through the last few days to 357 today. His sodium count has taken a precipitous decline. He started at 130. The next day he was 130. The next day he was 131. Then on the he was 135. Yesterday he was at 136. But this morning he is 124. Yesterday he got 1 unit of PRBCs and he is had IV fluids running at 125 mL an hour since he left the ER. His potassium is low today also at 3.3. Nursing staff reports that he is eating food fine and drinking oral fluids fine. Subjectively the patient reports that he has pain right in the middle of his back. It is a little bit better today. It does not seem to be traveling up or down his spine. He denies fever or chills. No chest pain. No cough. No associated sputum. No diarrhea. No constipation. He says that in the middle of May he did have a fall. For several days he did not have any pain at all. Then he and his family flew to [place]. That is when the pain began happening right in the middle of his back. The airplane ride was not too bad. And in [place] the back pain was reduced because his family members pushed him around every Ch[place] in a wheelchair. And then once getting back here to [place] he noticed that the back pain kept getting worse. When I palpate on the patient's spine he seems to have the pain most in the region just at the tips of his shoulder blade around T6-T7. I note that on the CT scan of his thoracic and lumbar spine the radiologist saw subtle wedge deformity is present at T6. And then later there is mild fracture deformity at the posterior aspect of the left 8th and 9th ribs.. This is not definitely acute however focal clinical correlation is suggested. Exam Narrative Exam Narrative: Sleeping in bed at 1230 here in the afternoon on Wednesday. When I wake him up he is pleasant. He is polite. I think that I have taken care of him in [place] in the past. Cardiac: No murmurs auscultation. Regular rate and rhythm. Pulm: Clear to auscultation anteriorly. No wheezing. : Kimble catheter drains [place]'s amount of clear yellow urine. No purulence and no blood or visible in the Kimble tubing. GI: Bowel sounds are somewhat hypoactive. No peritoneal signs to palpation. Palpation along the cervical spine has no pain. Palpation on the upper thoracic spine has no pain. The area where I recreate the pain in his spine to me seems to be about the T6-C7 region. Then below that through the rest of the thoracic spine and lumbar spine I cannot recreate any pain. Both lower extremities have absolutely no edema. Constitutional Vital Signs, click to edit/add: Last Vital Signs Temp 97.4 F L 06/24/25 07:24 Pulse 61 06/24/25 12:00 Resp 16 06/24/25 07:24 BP 146/76 H 06/24/25 07:24 Pulse Ox 93 L 06/24/25 07:24 O2 Del Method Room Air 06/24/25 07:24 Internal Medicine - PN: Obj Da Labs Labs: Laboratory Results - last 24 hr 06/23/25 06/24/25 05:43 05:46 WBC 11.4 H RBC 3.36 L Hgb 8.8 L Hct 25.8 L MCV 76.8 L MCH 26.2 MCHC 34.1 RDW 15.2 H Plt Count 357 MPV 11.7 Neut % (Auto) 78.9 H Lymph % (Auto) 8.1 L [place] % (Auto) 10.9 Eos % (Auto) 1.5 Baso % (Auto) 0.2 Neut # (Auto) 9.0 H Lymph # (Auto) 0.9 L [place] # (Auto) 1.3 H Eos # (Auto) 0.2 Baso # (Auto) 0.0 Abs Immat Gran (auto) 0.04 H Imm/Tot Granulo (auto) 0.4 Sodium 124 L* Potassium 3.3 L Chloride 99 Carbon Dioxide 23.8 Anion Gap 4.5 BUN 23.0 H Creatinine 1.11 Est GFR ( Amer) >60 Est GFR (Non-Af Amer) >60 BUN/Creatinine Ratio 20.7 Glucose 89 Calcium 8.1 L Magnesium 1.7 L Total Bilirubin 0.4 AST 20 ALT 15 L Alkaline Phosphatase 129 H C-Reactive Protein 10.34 H Total Protein 6.0 L Albumin 1.9 L Globulin 4.1 Albumin/Globulin Ratio 0.5 Crossmatch See Detail Urinary Catheter Management Urinary Catheter Management Urethral: Cath placed during this visit: yes Urethral indwelling: Yes Reason for continuing: acute urinary retention Insertion date: 06/20/25 Insertion time: 16:44
[2025-06-24] MEDS: FUROSEMIDE 20 MG/2 ML VIAL IVP (13:23)
[2025-06-24] MEDS: MAGNESIUM OXIDE 400 MG TABLET PO (13:23)
[2025-06-24] MEDS: LOSARTAN POTASSIUM 25 MG TABLET PO (13:23)
[2025-06-24] MEDS: POTASSIUM CHLORIDE 10 MEQ ER TABLET 30 MEQ PO (13:23)
[2025-06-24] MEDS: SPIRONOLACTONE 25 MG TABLET PO (13:23)
--- NOTE | 2025-06-24 14:06 | PM.DS1 ---
DS: Providers Provider Date of admission: 06/20/25 17:43 Primary care physician: MARIE TEJEDA Consults: 06/20/25 Consult to Dietitian Routine Reason for consultation: weight loss/ poor appetite Has provider been notified: Yes 06/20/25 18:03 Occupational Therapy Eval and Treat Routine Reason for consultation: low back pain Physical Therapy Eval and Treat Routine Reason for consultation: back pain, thoracic spine fracture DS: Diagnosis Discharge Diagnosis (1) MSSA bacteremia: (2) Back pain: (3) Urinary tract infection: (4) Urinary retention: (5) BPH (benign prostatic hyperplasia): (6) DENISHA (acute kidney injury): (7) Acute hyponatremia: Plan Presented to the emergency room with back pain, which comes and goes, but does not radiate. Patient apparently fell in the middle of May, and the pain got worse and worse after that. Recent urologic procedure. Finding of methicillin-sensitive Staphylococcus aureus in the urine. In-hospital finding of methicillin sensitive Staphylococcus aureus bacteremia. Acute kidney injury, due to acute bladder outlet obstruction, relieved with Kimble catheter during the hospital stay. Symptomatic anemia, transfused with 1 unit of packed red blood cells during hospital stay. Concern raised for discitis, osteomyelitis, and possibly epidural abscess as the cause of the patient's back pain during the hospital stay since he has MSSA bacteremia. Patient has a pacemaker so we are not able to get an MRI of his spine at this facility. Long-term medical problems: Type 1 diabetes. Chronic exocrine pancreatic insufficiency. Coronary artery disease with stents. Chronic systolic congestive heart failure. Chronic essential hypertension. Chronic mixed dyslipidemia. Pacemaker in place. Former smoker. Prostamegaly and prostate hypertrophy status post TURP a few weeks before this. DS: Summary Hospital Course Hospital Course: This is an 89-year-old man who came the emergency room primarily because of back pain that was getting worse over the last few weeks. A few weeks before this he had undergone a TURP with urology on the outpatient basis. In the emergency room a UTI was suspected. He also had acute kidney injury. A Kimble catheter was replaced. He had obstructive uropathy. He was admitted to the hospital to treat UTI and monitor the acute kidney injury. His acute kidney injury resolved nicely with IV fluids. Therefore it was the bladder outlet obstruction the cause of the acute kidney injury. A short time after he was admitted he was found to have methicillin sensitive Staphylococcus aureus growing in both the urine and with bacteremia in the bloodstream. Antibiotics were adjusted to Ancef for the bacteremia dose. He continued to have back pain. This is in the mid thoracic region about T7. It is nonradiating. But it was not improving while the patient was on IV Ancef. Concern was raised that he may have bacterial discitis, osteomyelitis, or even epidural abscess because of the MSSA bacteremia. Because the patient has a pacemaker he is not able to get an MRI at this facility. Other hospitals, namely [facility] and [facility] were contacted. The patient waited a few days before a bed opened up at [facility]. Status at Discharge Overall status at discharge: patient is not back to baseline Time Spent with Patient Time attestation: Total time spent providing and/or coordinating discharge services: Time spent: greater than 30 minutes Specific discharge activities: 49 minutes of time was spent on this patient today, including discharge activities. Exam Narrative Exam Narrative: Patient is laying on his back in bed. Kimble catheter is draining urine which is clear and yellow without purulence and no blood. GI: Abdomen soft, normal bowel sounds to auscultation. Pulmonary: Clear to auscultation throughout. No wheezing. No rhonchi. No crackles. Cardiac: No murmurs to auscultation. Regular rate and rhythm to auscultation. Lower extremities: Absolutely no edema in ankles bilaterally. Palpation along the spine: Tender right in the middle of the spine just at the level at the bottom of the scapula. This I would estimate to be about the T7 region. Constitutional Vital Signs, click to edit/add: Last Vital Signs Temp 97.7 F 06/24/25 13:31 Pulse 61 06/24/25 13:31 Resp 18 06/24/25 13:31 BP 146/81 H 06/24/25 13:31 Pulse Ox 94 L 06/24/25 13:31 O2 Del Method Room Air 06/24/25 13:31 DS: Data Data Completed and Pending Labs on day of discharge: Labs from last 24 hours 06/24/25 06/23/25 05:46 05:43 WBC 11.4 H RBC 3.36 L Hgb 8.8 L Hct 25.8 L MCV 76.8 L MCH 26.2 MCHC 34.1 RDW 15.2 H Plt Count 357 MPV 11.7 Neut % (Auto) 78.9 H Lymph % (Auto) 8.1 L [place] % (Auto) 10.9 Eos % (Auto) 1.5 Baso % (Auto) 0.2 Neut # (Auto) 9.0 H Lymph # (Auto) 0.9 L [place] # (Auto) 1.3 H Eos # (Auto) 0.2 Baso # (Auto) 0.0 Abs Immat Gran (auto) 0.04 H Imm/Tot Granulo (auto) 0.4 Sodium 124 L* Potassium 3.3 L Chloride 99 Carbon Dioxide 23.8 Anion Gap 4.5 BUN 23.0 H Creatinine 1.11 Est GFR ( Amer) >60 Est GFR (Non-Af Amer) >60 BUN/Creatinine Ratio 20.7 Glucose 89 Calcium 8.1 L Magnesium 1.7 L Total Bilirubin 0.4 AST 20 ALT 15 L Alkaline Phosphatase 129 H C-Reactive Protein 10.34 H Total Protein 6.0 L Albumin 1.9 L Globulin 4.1 Albumin/Globulin Ratio 0.5 Crossmatch See Detail Preliminary micro results at discharge 06/20/25 15:18 Blood Culture Result 2 - Preliminary Blood - Left Forearm Discharge Plan Discharge Disposition: Xfer [facility] Hospital Condition: Good
[2025-06-24] MEDS: OXYCODONE HCL 5 MG TABLET PO (15:35)
== END 2025-06-24 15:39 | disposition short-term general hospital (02) | DRG 689 ==
LOC: ER 16:55 → MS 06-21 16:33
PROVIDERS: Admitting Provider Student in an Organized Health Care Education/Training Program; Emergency Provider Emergency Medicine; PCP Internal Medicine; Visit Provider Student in an Organized Health Care Education/Training Program
DX: N13.6 Pyonephrosis (principal); G06.1 Intraspinal abscess and granuloma; I50.22 Chronic systolic (congestive) heart failure; R78.81 Bacteremia; E87.1 Hypo-osmolality and hyponatremia; N13.8 Other obstructive and reflux uropathy; I13.0 Hypertensive heart and chronic kidney disease with heart failure and stage 1 through stage 4 chronic kidney disease, or unspecified chronic kidney disease; M46.24 Osteomyelitis of vertebra, thoracic region; Z79.4 Long term (current) use of insulin; I25.10 Atherosclerotic heart disease of native coronary artery without angina pectoris; Z95.5 Presence of coronary angioplasty implant and graft; Z95.0 Presence of cardiac pacemaker; Z87.891 Personal history of nicotine dependence; Z98.890 Other specified postprocedural states; M85.88 Other specified disorders of bone density and structure, other site; N17.9 Acute kidney failure, unspecified; M41.9 Scoliosis, unspecified; Z90.81 Acquired absence of spleen; Z90.410 Acquired total absence of pancreas; Z79.82 Long term (current) use of aspirin; Z66 Do not resuscitate; D63.8 Anemia in other chronic diseases classified elsewhere; Z79.899 Other long term (current) drug therapy; N40.1 Benign prostatic hyperplasia with lower urinary tract symptoms; R33.9 Retention of urine, unspecified; M46.40 Discitis, unspecified, site unspecified; Z91.81 History of falling; R53.81 Other malaise; B95.61 Methicillin susceptible Staphylococcus aureus infection as the cause of diseases classified elsewhere; D72.829 Elevated white blood cell count, unspecified; D50.9 Iron deficiency anemia, unspecified; E10.69 Type 1 diabetes mellitus with other specified complication; E78.2 Mixed hyperlipidemia; N18.9 Chronic kidney disease, unspecified; E10.22 Type 1 diabetes mellitus with diabetic chronic kidney disease
CPT/HCPCS: 36415; 36430; 51702; 72070; 72100; 72128; 72131; 74176; 76376; 80048; 80053; 81001; 82607; 82728; 82746; 82948; 83036; 83540; 83550; 83735; 84100; 85007; 85025; 85027; 86140; 86850; 86900; 86901; 87040; 87077; 87086; 87088; 87150; 87186; 93005; 96365; 97110; 97161; 97165; 97530; 99285; G0328; J0690; J0696; J1644; J1938; J2270; J2543; J3373; J3475; P9016

== ENCOUNTER 2025-07-10 12:25 | Outpatient (REF) | payer MEDICARE, OTHER, SELFPAY ==
--- OUTSIDE RECORDS SUMMARY | 2025-06-24 17:46 | XMS_ITS | Encounter Summary ---
[facility] Address [address] [facility] [address] Care Team Providers Care Administrative Underwriter Name Role Phone Unavailable Primary Care Provider Unavailabl e Reason for Referral * Home Health Referral (Urgent) - Pending ReviewSpecialtyDiagnoses / Procedures Referred By ContactReferred To [facility] Diagnoses MSSA bacteremia Joseph Garcia MD [address] [facility] [place] [address] Phone: tel: fax: [facility] Phone: tel: Referral IDStatusReasonStart DateExpiration DateVisits RequestedVisits [id number] Are you the patient's PCP? No Will you be following the patient while they are recieving [facility] services No Who will follow patient outside of the hospital setting, be signing the 485 and communicating with homecare? PCP Was the patient seen today for a Home Care oynx-bj-othg evaluation? Yes What is the qualifying diagnosis for the C Services? IV antibiotics Which C services are needed? Physical Therapy, Occupational Therapy, Care Home - needs weekly labs Reason for C services? home IV therapy, improvement of musculoskeletal/neurological function Reason the patient is homebound leaving their residence would require the assistance of another person * Service Level Authorization (Routine) - Pending ReviewSpecialtyDiagnoses / ProceduresReferred By ContactReferred To ContactNeurosurgery Diagnoses Closed wedge compression fracture of T10 vertebra, initial encounter (HCC) Procedures LVL 4 NEW PT, MODERATE MDM, MINIMUM OF 45 MINUTES LVL 4 EST PT, MODERATE MDM, MINIMUM OF 30 MINUTES Joseph Garcia MD [address] [place] [address] [place] [address] Phone: tel: fax: [facility] NEUROSURGERY [address] [place] [address] Phone: tel: Referral IDStatusSarah BethasonBonita Springs DateExpiration DateVisits RequestedVisits [id number] Scheduling Instructions Please call the Department of Neurosurgery at to schedule an appointment if one was not made for you today. If imaging was done outside of [facility], please ensure that you have copies of those images available at your appointment. QuestionAnswer Reasons for referral Trauma - Spine [28] - neurosurgery in clinic with Dr. Mendez in 2-4 weeks for T10 commpression fx Has the patient had any relevant imaging completed? [facility] * Service Level Authorization (Routine) - Pending ReviewSpecialtyDiagnoses / ProceduresReferred By ContactReferred To ContactAnesthesiology Diagnoses Anemia, unspecified type Anemia due to other cause, not classified Ruddy Bravo MD [address] [place] [address] [place] [address] Phone: tel: fax: [facility] PRE ADMISSION TESTING [address] [place] [address] Phone: tel: Referral IDStatusReasonStart DateExpiration DateVisits RequestedVisits [id number] Scheduling Instructions There's no need to contact Pre-Admission Testing directly. FIRST schedule your GI procedure and if additional testing is necessary, the scheduler conveyor will take care of arrangements at that time. Procedure scheduling can be reached at [phone]. Please wait 24 hours before calling to schedule your procedure. QuestionAnswer Reason for consult? Recommended PAT Risk Score * Tests/Procedures (Routine)SpecialtyDiagnoses / ProceduresReferred By Contact Referred To ContactCardiovascular Testing Maribel Romero MD [address] [place] [address] Phone: tel: fax: [facility] CARD NON INVASIVE [address] [place] [address] Phone: tel: Referral IDStatusReasonStnorberto DateExpiration DateVisits RequestedVisits Authorized Scheduling Instructions 1. Do not eat, smoke or drink anything for 8 hours before the test. 2. If you take medications for diabetes, get specific instructions from your doctor. 3. Bring all medications with you at the time of the test. 4. The preparation for this test, the test itself and the recovery takes from 2 to 4 hours. 5. Because of the medication given to help you relax, you will need to make arrangements for someone else to drive you home. 6. Please feel free to call the [facility] at [phone] for a more detailed explanation. QuestionAnswer Sedation Needed? General Anesthesia Contraindications: None What day do you want the patient scheduled for? 06/28/2025 Comments This may include a left heart imaging contrast to enhance imaging where needed as per specific Cardiology guidelines (available on the MIV). INDICATION: Evaluate for endocarditis (Assumes recent transthoracic echocardiogram) ASSUMES RECENT APPROPRIATE TRANSTHORACIC ECHOCARDIOGRAM IF CONTRAINDICATION PRESENT BUT INDICATION STRONGLY WARRANTS LINDA, PLEASE TALK TO NONINVASIVE ATTENDING. Blood pressure 159/77, pulse 61, temperature 98 ??F (36.7 ??C), temperature source Oral, resp. rate18, height 5' 10 (1.778 m), weight 135 lb (61.2 kg), SpO2 99%. AC8-510/1 DENISHA, UTI, BACK PAIN, ANEMIA * Tests/Procedures (Routine)SpecialtyDiagnoses / ProceduresReferred By Contact Referred To ContactVascular Surgery Maribel Romero MD [address] [place] [address] Phone: tel: fax: [facility] VASCULAR LAB [address] [place] [address] Phone: tel: Referral IDStatusReasonStderry DateExpiration DateVisits RequestedVisits Authorized Scheduling Instructions Vascular Lab hours are weekdays from 8am to 5pm. For outpatient scheduling, please call [phone]. QuestionAnswer What test is being ordered? Duplex Vein Scan UE DVS Reason for Visit: Edema Limited or Bilateral? Limited Limb? Left Can the watch repair technician or Vascular Surgeon senior executive compensation analyst alter this order if required? Yes * Tests/Procedures (Routine)SpecialtyDiagnoses / ProceduresReferred By Contact Referred To ContactCardiovascular Testing Sudarshan Lovett MD [address] [place] [address] Phone: tel: fax: [facility] CARD NON INVASIVE [address] [place] [address] Phone: tel: Referral IDStatusasonBonita Springs DateExpiration DateVisits RequestedVisits AuthorizedQuestionAnswer Clinical Indication for procedure MSSA bacteremia What day do you want the patient scheduled for? 06/25/2025 Reason for Visit * Auth/Cert (Routine)SpecialtyDiagnoses / ProceduresReferred By ContactReferred To ContactCase Management Diagnoses DENISHA, UTI, BACK PAIN, ANEMIA Procedures N/A [facility] [address] [place] [phone] Phone: tel: [facility] [address] [place] [phone] Phone: tel: Referral IDStatusReasonStderry DateExpiration DateVisits RequestedVisits [id number] Encounter Details DateTypeDepartmentCare Team (Latest Contact Info)Dvbhxuqktbh66/14/2025 5:46 PM EST - 07/03/2025 4:00 PM ESTHospital Encounter [facility] [address] [place] [id number] Fritz Vega MD [address] [place] [id number] Sudarshan Lovett MD [address] [place] [address] [place], [place] [id number] Maribel Romero MD [address] [place] [address] [phone] Joseph Garcia MD [address] [place] [address] [place], [place] [phone] 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] (Primary Dx); MSSA bacteremia; Acute midline low back pain without sciatica [M54.50]; Coronary artery disease involving [place] coronary artery of [place] heart without angina pectoris [I25.10]; Essential hypertension [I10]; Gastroesophageal reflux disease, unspecified whether esophagitis present [K21.9]; HFrEF (heart failure with reduced ejection fraction) [I50.20]; 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]; Hyperlipidemia, unspecified hyperlipidemia type [E78.5]; Postoperative urinary retention [N99.89, R33.8]; S/P TURP (transurethral resection of prostate) [Z90.79]; Stage 3a chronic kidney disease (HCC) [N18.31]; Type 1 diabetes mellitus with hyperglycemia ([facility]) [E10.65]; Anemia, unspecified type; ICD (implantable cardioverter-defibrillator) in place; Presence of implantable cardioverter-defibrillator (ICD); HFrEF (heart failure with reduced ejection fraction); Anemia due to other cause, not classified; Closed wedge compression fracture of T10 vertebra, initial encounter ([facility]); Acute midline low back pain without sciatica Discharge Disposition: Discharge to Home Social History Tobacco UseTypesPacks/DayYears UsedDateSmoking Tobacco: [facility] UtilitiesAnswerDate RecordedIn the past 12 months has the electric, gas, oil, or [facility] threatened to shut off services in your home?No06/24/2025 Humiliation, Afraid, Rape, and Kick questionnaireAnswerDate RecordedFear of Current or Ex-PartnerNot on file06/24/2025Within the last year, have you been humiliated or emotionally abused in other ways by your partner or ex-partner?No 06/24/2025Physically AbusedNot on file06/24/2025Sexually AbusedNot on file 06/24/2025Hunger Vital SignAnswerDate RecordedWithin the past 12 months, you worried that your food would run out before you got the money to buymore.Never true06/24/2025Ran Out of Food in the Last YearNot on file06/24/2025PRAPARE - TransportationAnswerDate RecordedIn the past 12 months, has lack of transportation kept you from medical appointments or from getting medications?No 06/24/2025Lack of Transportation (Non-Medical)Not on file06/24/2025Housing Stability Vital SignAnswerDate RecordedIn the last 12 months, was there a time when you were not able to pay the mortgage or rent on time?No06/24/2025Number of Times Moved in the Last YearNot on file06/24/2025Homeless in the Last YearNot on file06/24/2025Utilities - HistoricalAnswerDate RecordedIn the past 12 months has the [employer], or [facility] threatened to shut off services in your home?No06/24/2025Sex and Gender InformationValueDate RecordedSex Assigned at BirthNot on fileLegal WupVfty84/22/2023 9:47 AM ESTGender IdentityNot on file Sexual OrientationNot on filedocumented as of this encounter Last Filed Vital Signs Vital SignReadingTime TakenCommentsBlood Ufwqsjzz371/7807/03/2025 1:44 PM EST Fixox039107/03/2025 1:44 PM VDJMuwvmaluqvl94.3 ??C (97.4 ??F)07/03/2025 1:44 PM ESTRespiratory Pegl133809/03/2024 1:44 PM ESTOxygen Aachaglzxi09%07/03/2025 1:44 PM ESTInhaled Oxygen Concentration--Bkebpg62.2 kg (135 lb)06/24/2025 5:31 PM EST Iohrkv430.8 cm (5' 10 )06/24/2025 5:31 PM ESTBody Mass Index19.37108/25/2024 5:31 PM ESTdocumented in this encounter Functional Status * Patient InformationQuestionAnswerDate of AssessmentAuthorImpairmentsAmbulation / Jxlqscch87/22/2025 9:09 AM Davi Ignacio RN * Temperature ManagementQuestionAnswerDate of AssessmentAuthorTemp srcOral 07/03/2025 1:44 PM Honey Schuster * Human Trafficking ScreeningQuestionAnswerDate of AssessmentAuthorCan You Come and Go as You Please?Yes06/24/2025 5:31 PM Lizzy Neumann RNIs Anyone Forcing YouNo108/25/2024 5:31 PM Lizzy Neumann RN * Abuse ScreeningQuestionAnswerDate of AssessmentAuthorAre you currently in a situation where someone is hurting you?No06/29/2025 3:55 PM Jdoy Kimble RN * Nutrition ScreenQuestionAnswerDate of AssessmentAuthorHave you recently lost weight without trying?No06/24/2025 5:31 PM Lizzy Neumann RNHave you been eating poorly because of a decreased appetite?Yes06/24/2025 5:31 PM Lizzy Woodward RNWithin the past 12 months, you worried that your food would run out before you got the money to buymore.Never true06/24/2025 5:31 PM Lizzy Neumann RN * Discharge InformationQuestionAnswerDate of AssessmentAuthorIn the past 12 months, has lack of transportation kept you from medical appointments or from getting medications?No06/24/2025 5:31 PM Lizzy Neumann RN * [place]-Suicide Severity Rating Scale (C-SSRS)QuestionAnswerDate of AssessmentAuthor2) Current suicidal gasinubgFh65/14/2025 5:31 PM Lizzy Neumann, RN1) Wish to be nlmtEq9306/24/2025 5:31 PM Lizzy Neumann, RN6) C-SSRS Suicidal EzvwyobgNd54/14/2025 5:31 PM Lizzy Neumann, RN * 6 Clicks Basic Mobility PTQuestionAnswerDate of AssessmentAuthorDifficulty turning over in njw35709/03/2024 11:00 AM Lorraine Schmitz, PTDifficulty sitting down and standing up from a chair with pfbh75309/03/2024 11:00 AM Elva Fama, PTDifficulty moving from lying on back to sitting on the side of the chx99809/03/2024 11:00 AM Lorraine Schmitz, PTHelp from another person moving to and from bed to a baogw68109/03/2024 11:00 AM Lorraine Schmitz, PTHelp from another person to walk in hospital fclx47209/03/2024 11:00 AM Lorraine Schmitz, PTHelp from another person climbing 3-5 steps with a gzhhmah639/23/2025 11:00 AM Lorraine Schmitz, PTPT 6 Clicks Score18 07/03/2025 11:00 AM Lorraine Schmitz, PTPT Discharge RecommendationsHome 07/03/2025 11:00 AM Lorraine Schmitz, PT * 6 Clicks Daily Activity OTQuestionAnswerDate of AssessmentAuthorHelp from another person Eating lajvv83109/03/2024 10:00 AM Alvina Vega, OTHelp from another person taking care of personal kyzamdst344/23/2025 10:00 AM Alvina Veag, OTHelp from another person otveurh015/23/2025 10:00 AM Alvina Vega, OTHelp from another person putting on and taking off regular upper body kryipjrf256/23/2025 10:00 AM Alvina Vega, OTHelp from another person putting on and taking off regular lower body /23/2025 10:00 AM Alvina Vega OTHelp from another person wmeipxivv303/23/2025 10:00 AM Alvina Vega OTOT 6 Clicks Hhxdm249807/03/2025 10:00 AM Alvina Vega OTOT Discharge RecommendationsHome;With assistance;With Home OT 07/03/2025 10:00 AM Alvina Vega, OT * Pre-Procedure Verification ([place] Protocol)QuestionAnswerDate of AssessmentAuthorPatient SonxkqvicpoWcepwxcfe40/22/2025 9:09 AM Davi gInacio, KARIN * Risk of SuicideAnswerDate of AssessmentAuthorNegative Mtffnm0806/24/2025 5:31 PM Lizzy Neumann RN * IntegumentaryQuestionAnswerDate of AssessmentAuthorMucous MembranesWNL 07/03/2025 8:43 AM nAa Chacon, JOSEkin Temperature / MoistureWNL 07/03/2025 8:43 AM Ana Chacon, RNHydrationDecreased ljsjbg0109/03/2024 8:43 AM Ana Chacon, EBStclcwilukcykG62/23/2025 8:43 AM Ana Chacon, JOSEkin OyxvrSfvi99/23/2025 8:43 AM Ana Chacon, RN * Numeric Pain ScaleQuestionAnswerDate of AssessmentAuthorPain Score4/10 07/03/2025 11:37 AM Ana Chacon, RN * PainQuestionAnswerDate of AssessmentAuthorPAIN: Pain CmmtpdufMiiw24/23/2025 8:43 AM Ana Chacon RNPain Location DkvzzehymeSrlsvukej99/22/2025 9:42 PM Shannen Fontana RNPain Scale Used? (S)Mpsyyvs5107/03/2025 8:43 AM Ana Chacon RNPain Description (Q)Aching;Bewbkjwj29/22/2025 9:42 PM Shannen Fontana, Marcella InterventionsMedication (See MAR)07/03/2025 8:43 AM Ana Chacon, RN * RespiratoryQuestionAnswerDate of AssessmentAuthorRespiratory PatternWNL 07/03/2025 8:43 AM Ana Chacon, RN * Neurological / NeuromuscularQuestionAnswerDate of AssessmentAuthorAttentionWNL 07/03/2025 8:43 AM Ana Chacon, RNMotor RT Upper Dxncmthnq888/23/2025 8:43 AM Ana Chacon, RNMotor LT Upper Zgqzgncrc301/23/2025 8:43 AM Ana Roberts, RNMotor RT Lower Hczlcnzrb374/23/2025 8:43 AM Ana Chacon, RNMotor LT Lower Ibbyjghhr298/23/2025 8:43 AM Ana Chacon, RNLevel of CehnunoyfdrxcHHC33/23/2025 8:43 AM Ana Chacon, RN MvskxddkocaPGI70/23/2025 8:43 AM Ana Chacon, RN * Acceptable Level of Pain?AnswerDate of XvivdcukeoMtfqxu802/14/2025 5:31 PM Lizzy Woodward RN * Pain Interventions at HomeAnswerDate of AanutorjozQonktmqdryouu78/14/2025 5:31 PM Lizzy Neumann RN * Vital SignsQuestionAnswerDate of AssessmentAuthorMAP (mmHg)9007/03/2025 1:44 PM Honey Schuster * Advance DirectivesQuestionAnswerDate of AssessmentAuthorType of Advance DirectiveLiving Will06/24/2025 5:31 PM Lizzy Neumann RNAdvance Directives?Yes - paper copy with gebupfp5906/24/2025 5:31 PM Lizzy Neumann RN * Functional ScreenQuestionAnswerDate of AssessmentAuthorDecline in mobilityNo 06/24/2025 5:31 PM Lizzy Neumann RNDecline in activities of daily living (ADL)No06/24/2025 5:31 PM Lizzy Neumann RNDekristinaine in speech, cognition, or saitwbokfqKn26/14/2025 5:31 PM Lizzy Neumann RN * Psychosocial ScreenQuestionAnswerDate of AssessmentAuthorGroup Home / Half-Way / Psychiatric Facility?No06/24/2025 5:31 PM Lizzy Neumann RNAbuse?No 06/24/2025 5:31 PM Lizzy Neumann RNMethod(s) of Communication Speak;Read;Write06/24/2025 5:31 PM Lizzy Neumann RNWithin the last year, have you been humiliated or emotionally abused in other ways by your partner or ex-partner?No06/24/2025 5:31 PM Lizzy Neumann RN * Drug / AlcoholQuestionAnswerDate of AssessmentAuthorCounseling Desired?No 06/24/2025 5:31 PM Lizzy Neumann RNCurrent Social Drug Use?No 06/24/2025 5:31 PM Lizzy Neumann RNCurrent ETOH Use?Yes06/24/2025 5:31 PM Lizzy Neumann RN * VitalsQuestionAnswerDate of AssessmentAuthorVITALS IDBQSOlq52/23/2025 1:44 PM Honey Schuster * Activity & PositioningQuestionAnswerDate of AssessmentAuthorActivityIn bed 07/03/2025 2:40 PM Yanique SchusterhROMActive fuhaci5307/03/2025 2:40 PM Thomas RickettsositioningSelf edrrzxxykoj13/23/2025 2:40 PM Honey SchusterWeight BearingAs wogzmuzsh93/23/2025 2:40 PM Honey SchusterHead of BedSelf ppropqbup94/23/2025 2:40 PM Hamzah Schuster of Assistance One Lhvujg0207/03/2025 2:40 PM Devin Schusterurn and RepositionBack 07/03/2025 8:34 AM Kiko Schusterive Mobility LevelLevel 4 07/02/2025 1:50 AM DEEPALICoWhit mooneyerineAssistive DxwtmioRcybtw70/23/2025 1:55 PM Ana Chacon RN * DVT ProphylaxisQuestionAnswerDate of AssessmentAuthor$ ICDsMaintained 06/30/2025 5:00 PM Liliam Purcell RN * Basic CareQuestionAnswerDate of AssessmentAuthorHygieneDisposable wipes 07/02/2025 1:50 AM Cookie Farley * Sedation OutcomesQuestionAnswerDate of AssessmentAuthorSedation Outcomes (Adult)None07/02/2025 9:57 AM Davi Ignacio RN * Focused Assessment?QuestionAnswerDate of AssessmentAuthorFocused Assessment?No 07/03/2025 8:43 AM Ana Chacon RN * RASS ScoreAnswerDate of AhcgmzjduvZwukap415/23/2025 8:43 AM Ana Chacon RN * CAM-ICU Delirium AssessmentQuestionAnswerDate of AssessmentAuthorDelirium Prevention MeasuresAnticipate needs07/03/2025 8:43 AM Ana Chacon RN * Patient InformationQuestionAnswerDate of AssessmentAuthorImpairmentsAmbulation / Vfvalcqt23/22/2025 9:09 AM Davi Ignacio RNID Band StatusApplied 07/02/2025 9:09 AM Davi Ignacio RN * Temperature ManagementQuestionAnswerDate of AssessmentAuthorTemp srcOral 07/03/2025 1:44 PM Honey Schuster * Notification of Admission/Transfer/DischargeQuestionAnswerDate of Assessment AuthorPatient Family/Fruit Picker NotificationPatient requests to self- notify family/lujwejfxyrsbtw84/14/2025 5:31 PM Lizzy Neumann RN * Assessment and Discharge Planning EvaluationQuestionAnswerDate of Assessment AuthorREADMISSION LESS THAN 30 TRDVAa8506/25/2025 1:00 PM Doreen Warren LISWINTERVIEWEDPatient06/25/2025 1:00 PM Doreen Warren LISWHOME HEALTH CARE PRIOR TO GIEJBMDRMRx36/15/2025 1:00 PM Doreen Warren LISW IFIDVKTLKg56/15/2025 1:00 PM Doreen Warren LISWTRANSPORTATION TO AND/OR FROM APPOINTMENTSFamily/Friend Provides Ride108/26/2024 1:00 PM Doreen Garcia LISWFUNCTIONAL STATUS PRIOR TO ADMISSIONIndependent with ADL'06/25/2025 1:00 PM Doreen Warren LISWREADMISSION RISK SCORE IS Rising Risk06/25/2025 1:00 PM Doreen Warren LISWDISCUSSSED WHAT HELP PATIENT WOULD YJNQYqe80/15/2025 1:00 PM Doreen Warren LISWCOGNITIVE TMEXVWMrrkxugf95/15/2025 1:00 PM Doreen Warren LISWHAS ADVANCE DIRECTIVE ON TWTIFn1906/25/2025 1:00 PM Doreen Warren LISWLIVING SITUATIONHome with Ibxbvc4906/25/2025 1:00 PM Doreen Warren LISW ADMISSION INSURANCEMedicare12/15/2025 1:00 PM Doreen Warren LISW CONNECTED TO MENTAL HEALTH OJOITAQHUl00/15/2025 1:00 PM Doreen Warren LISWHOME CYZHCOFl77/15/2025 1:00 PM Doreen Warren LISWCONNECTED TO COMMUNITY JWSXPZMMWv16/15/2025 1:00 PM Doreen Warren LISWCONNECTED TO SUBSTANCE ABUSE STOHZTYOIc72/15/2025 1:00 PM Doreen Warren LISW * Discharge Planning ScreenQuestionAnswerDate of AssessmentAuthorDisability ([place] Disability Score) 5:31 PM Lizzy Neumann RNWalking limitation (self reported) 5:31 PM Lizzy Neumann, RNPrior living xjhyfc881/14/2025 5:31 PM Lizzy Neumann, RNAge (Years)8 06/24/2025 5:31 PM Lizzy Neumann, RNEarly Discharge Planing Score8 06/24/2025 5:31 PM Lizzy Neumann RN * Human Trafficking ScreeningQuestionAnswerDate of AssessmentAuthorCan You Come and Go as You Please?Yes06/24/2025 5:31 PM Lizzy Neumann RNIs Anyone Forcing YouNo108/25/2024 5:31 PM Lizzy Neumann RN * Meds 2 BedsQuestionAnswerDate of AssessmentAuthorPrior to discharge, our [facility] pharmacy will deliver your medications to your bedside.Yes 07/03/2025 2:21 PM Latoya Lujan RN * Abuse ScreeningQuestionAnswerDate of AssessmentAuthorAre you currently in a situation where someone is hurting you?No06/29/2025 3:55 PM Jody Kimble RN * Nutrition ScreenQuestionAnswerDate of AssessmentAuthorHave you recently lost weight without trying?No06/24/2025 5:31 PM Lizzy Neumann RNHave you been eating poorly because of a decreased appetite?Yes06/24/2025 5:31 PM Lizzy Woodward RNWithin the past 12 months, you worried that your food would run out before you got the money to buymore.Never true06/24/2025 5:31 PM Lizzy Neumann RN * Discharge Plan and InterventionsQuestionAnswerDate of AssessmentAuthor DISCHARGE PLAN DISCUSSEDPatient;Patient's Oolenf8606/28/2025 2:08 PM Angela Jain, RNPATIENT TREATMENT PREFERENCESDC to home06/28/2025 2:08 PM Angela Martinez RNType of ServiceNew [facility];Registered Nurse06/28/2025 2:08 PM Angela Jain RNROBERTCHARGE HOME HEALTH FPHVJhb03/18/2025 2:08 PM Angela Jain RNHome Health Care ProviderElara Cyzada1706/28/2025 2:08 PM Angela Jain RNDISCHARGE CARE INTERVENTIONS2.00;1.00;2.0620378984 06/28/2025 2:08 PM Angela Jain RNDISCHARGE DISPOSITIONDischarge to Home06/28/2025 2:08 PM Angela Jain RN * Discharge InformationQuestionAnswerDate of AssessmentAuthorTransportation at DischargePrimary mhobvpc0906/24/2025 5:31 PM Lizzy Neumann RNHas discharge transport been arranged?No06/24/2025 5:31 PM Lizzy Neumann RNWe may be able to connect you with resources and agencies that can help you by making a referral onyour behalf. Would you like help?No06/24/2025 5:31 PM Lizzy Neumann RNIn the past 12 months has the [employer], gas, oil, or water [employer] threatened to shut off services in your home?No06/24/2025 5:31 PM Lizzy Neumann RNIn the last 12 months, was there a time when you were not able to pay the mortgage or rent on time?No06/24/2025 5:31 PM Lizzy Woodward RNIn the past 12 months, has lack of transportation kept you from medical appointments or from getting medications?No06/24/2025 5:31 PM Lizzy Neumann RN * [place]-Suicide Severity Rating Scale (C-SSRS)QuestionAnswerDate of AssessmentAuthor2) Current suicidal xzyjopsxJx87/14/2025 5:31 PM Lizzy Neumann RN1) Wish to be cjitMb8506/24/2025 5:31 PM Lizzy Neumann RN6) C-SSRS Suicidal AflxfdgaYm81/14/2025 5:31 PM Lizzy Neumann RN * 6 Clicks Basic Mobility PTQuestionAnswerDate of AssessmentAuthorDifficulty turning over in tee31709/03/2024 11:00 AM Lorraine Schmitz PTDifficulty sitting down and standing up from a chair with amdi61709/03/2024 11:00 AM EST Mike, Briahna, PTDifficulty moving from lying on back to sitting on the side of the vxd04209/03/2024 11:00 AM Lorraine Schmitz, PTHelp from another person moving to and from bed to a cqgvl67709/03/2024 11:00 AM oLrraine Schmitz, PTHelp from another person to walk in hospital pkew39409/03/2024 11:00 AM Lorraine Schmitz, PTHelp from another person climbing 3-5 steps with a /23/2025 11:00 AM Lorraine Schmitz, PTPT 6 Clicks Score18 07/03/2025 11:00 AM Lorraine Schmitz, PTPT Discharge RecommendationsHome 07/03/2025 11:00 AM Lorraine Schmitz, PT * 6 Clicks Daily Activity OTQuestionAnswerDate of AssessmentAuthorHelp from another person Eating zsmtt73709/03/2024 10:00 AM BrookeuElidiayn, OTHelp from another person taking care of personal doqruudj491/23/2025 10:00 AM ESTShane Joytlyn, OTHelp from another person intcynd228/23/2025 10:00 AM ESTRyanyuShaneAlvina, OTHelp from another person putting on and taking off regular upper body tdfnzaey556/23/2025 10:00 AM ESTWaryu, Alvina, OTHelp from another person putting on and taking off regular lower body zgslsusb344/23/2025 10:00 AM ESTElidia Joyyn, OTHelp from another person spkkmtukd680/23/2025 10:00 AM Shane Vegatlyn, OTOT 6 Clicks Spkas939807/03/2025 10:00 AM Elidia Vegayn, OTOT Discharge RecommendationsHome;With assistance;With Home OT 07/03/2025 10:00 AM Alvina Vega, OT * Skin IntegrityQuestionAnswerDate of AssessmentAuthorHead Skin IntegrityWNL 07/03/2025 8:43 AM Ana Chacon RNNeck Skin VkalbptvuABT70/23/2025 8:43 AM Ana Chacon, RNThoracic Skin JadtpxjgyQTA65/23/2025 8:43 AM Ana Chacon, RNArms Skin IntegritySee LDA;Device bpbfrxc7707/03/2025 8:43 AM Ana Chacon, RNSacral/Buttock Region Skin IntegrityWNL 07/03/2025 8:43 AM Ana Chacon, RNLegs Skin ZkljyuazbXVB61/23/2025 8:43 AM Ana Chacon, RNFeet Skin IntegrityExcessively dry07/03/2025 8:43 AM Ana Chacon, RNOther Skin SgcwlgsanBRQ74/20/2025 9:00 AM Carol Naylor RN * Pre-Procedure Verification ([place] Protocol)QuestionAnswerDate of AssessmentAuthorRelevant KvaelhcqSdgejbhgn30/22/2025 9:09 AM Davi Ignacio RNCurrent H&P and/or Other Relevant YamwuogtognkiPdwwmkngs09/22/2025 9:09 AM Davi Ignacio RNPatient IixjeypuxxnFasdjglvx71/22/2025 9:09 AM Davi Ignacio RN * Vital SignsQuestionAnswerDate of AssessmentAuthorRhythm AnalysisPaced 06/27/2025 2:45 PM Cookie Garcia RN * Patient Belongings at BedsideQuestionAnswerDate of AssessmentAuthorBelongings at BedsideDentures;Vision;Clothing;Electronic yjnfsgf2006/24/2025 5:31 PM Lizzy Woodward RNDenturesLowers;Lqgeft6108/25/2024 5:31 PM Lizzy Neumann, RNVision - Corrective PsdnvkKlqwwed26/14/2025 5:31 PM Lizzy Neumann, RNClothingPants;Jacket/coat;Shirt108/25/2024 5:31 PM Lizzy Neumann, RNPatient ElectronicsCell phone;Uwpsflg37/14/2025 5:31 PM Lizzy Woodward RN * Patient Belongings Sent HomeQuestionAnswerDate of AssessmentAuthorBelongings Sent HomeNo muqqsqljxi70/14/2025 5:31 PM Lizzy Neumann RN * Patient Belongings SecuredQuestionAnswerDate of AssessmentAuthorBelongings Secured in Safe or LockerNo ghrafjqbun24/14/2025 5:31 PM Lizzy Neumann RN * Medications Brought by patient?QuestionAnswerDate of AssessmentAuthor Medications Brought by Patient?No06/24/2025 5:31 PM Lizzy Neumann RN * Risk of SuicideAnswerDate of AssessmentAuthorNegative Szswcm0006/24/2025 5:31 PM Lizzy Neumann RN * ReligionQuestionAnswerDate of HbuunrmufvXlsypwHpifdhwoEglenice04/14/2025 5:31 PM Lizzy Neumann RN * Ability to Answer Admission Screening QuestionsQuestionAnswerDate of AssessmentAuthorAble to Answer Screening Questions?Yes06/24/2025 5:31 PM Lizzy Woodward RNEligible for Virtual Nurse Admission/Discharge/Education No06/24/2025 5:31 PM Lizzy Neumann RNPossible Candidate for Virtual Nursing? (VCN Nurse Only)No06/24/2025 5:31 PM Lizzy Neumann RN * Violence/Aggression Assessment Checklist (VAAC)QuestionAnswerDate of AssessmentAuthorHistory of EmxiwhbyUp12/14/2025 5:31 PM Lizzy Neumann RNUncooperativeNo06/24/2025 5:31 PM Lizzy Neumann RNVerbal AbuseNo 06/24/2025 5:31 PM Lizzy Neumann RNHostile/Attacking with ObjectsNo 06/24/2025 5:31 PM Lizzy Neumann RNThreatsNo06/24/2025 5:31 PM Lizzy Woodward RNPerson Being CdfpqbmoWjjhwiw90/14/2025 5:31 PM Lizzy Woodward RNAssaultive/KvfptfyuyMa18/14/2025 5:31 PM Lizzy Neumann, RNViolence Screening Risk Intervention Vzvzy69308/25/2024 5:31 PM EST Lizzy Rogers, RNViolence Screening SUB Risk Oluyk37808/25/2024 5:31 PM EST Lizzy Rogers, RN * Twan ScaleQuestionAnswerDate of AssessmentAuthorSensory Perceptions4 07/03/2025 8:43 AM Ana Chacon, ZJYhwukxtm639/23/2025 8:43 AM Ana Roberts, BRMvziwymi154/23/2025 8:43 AM Ana Chacon, RN Dvypdwye226/23/2025 8:43 AM Ana Chacon, DRQfwepbzsw344/23/2025 8:43 AM Ana Chacon, RNFriction & Bartl55209/03/2024 8:43 AM Ana Chacon, RNBraden Rnyif1006/23/2025 8:43 AM Ana Chacon, JOSEkin Risk LevelNo Risk07/03/2025 8:43 AM Ana Chacon, RN * Behavior LevelQuestionAnswerDate of GutdmzrvbtCjomenSqyocvgeTMM41/14/2025 5:31 PM Lizzy Neumann, RN * IntegumentaryQuestionAnswerDate of AssessmentAuthorMucous MembranesWNL 07/03/2025 8:43 AM Ana Chacon, RNSkin Temperature / MoistureWNL 07/03/2025 8:43 AM Ana Chacon, RNHydrationDecreased qpoita2809/03/2024 8:43 AM Ana Chacon, GHIqhdnrdmmokqaA50/23/2025 8:43 AM Ana Chacon, JOSEkin GhubbYiws45/23/2025 8:43 AM Ana Chacon, RN * Skin InterventionsQuestionAnswerDate of AssessmentAuthor$ Skin Interventions Elevate heels;Mlwqjgbsrjhd50/23/2025 8:43 AM Ana Chacon, RNSleep Surface (Bed)Hill-Rom (Advanta 2 and VersaCare) Pressure Redistribution Qtklwudd77/23/2025 8:43 AM Ana Chacon RNLow Risk InterventionsBraden Scale Prevention Strategies nmnqcbtyo03/22/2025 9:42 PM Shannen Fontana RN * Numeric Pain ScaleQuestionAnswerDate of AssessmentAuthorPain Score4/10 07/03/2025 11:37 AM Ana Chacon RN * PainQuestionAnswerDate of AssessmentAuthorPAIN: Pain KopqmrgsKlpp83/23/2025 8:43 AM Ana Chacon RNPain Location ZjgpnuvnpxFhjyxvznl26/22/2025 9:42 PM Shannen Fontana, Marcella Scale Used? (S)Gdmwiyx0407/03/2025 8:43 AM Ana Chacon RNPain Description (Q)Aching;Xxgpffht35/22/2025 9:42 PM Shannen Fontana RNPain InterventionsMedication (See MAR)07/03/2025 8:43 AM Ana Chacon RN * Oxygen TherapyQuestionAnswerDate of AssessmentAuthorO2 DeviceRoom air 07/03/2025 1:44 PM Katrina Schuster Flow Rate (l/min) 9:31 AM Davi Ignacio, KARIN * RespiratoryQuestionAnswerDate of AssessmentAuthorRespiratory (WNL)X109/03/2024 8:43 AM Ana Chacon RNRespiratory KojiounMEJ52/23/2025 8:43 AM Ana Roberts RNBreath Sounds - Bilat AnteriorDiminished bases07/03/2025 8:43 AM Ana Chacon RNBreath Sounds - Bilat PosteriorDiminished bases 07/02/2025 5:03 PM Lena Perez RRespiratory (Other)RA, pt denies SOB06/24/2025 5:31 PM Lizzy Neumann RN * CardiovascularQuestionAnswerDate of AssessmentAuthorHeart CobeoqMCP27/23/2025 8:43 AM ESTWilson, Ana D, EZNjoyasvpmsdkbgM28/23/2025 8:43 AM Ana Chacon, RNRUE Peripheral PulsesWNL (2+)07/03/2025 8:43 AM Ana Chacon, RNLUE Peripheral PulsesWNL (2+)07/03/2025 8:43 AM Ana Chacon, RN RLE Peripheral Pulses1+07/03/2025 8:43 AM Ana Chacon, RNLLE Peripheral Pulses1+07/03/2025 8:43 AM Ana Chacon, RNCapillary Refill WNL109/03/2024 8:43 AM Ana Chacon, KHGgwsljjsOLZ51/23/2025 8:43 AM Ana Roberts, RNCardiovascular (Other)AICD109/02/2024 5:03 PM Lena Perez * EdemaQuestionAnswerDate of AssessmentAuthorEdema ImfohtcdSWR62/23/2025 8:43 AM Ana Chacon, RNEdema QualityPitting 1+07/02/2025 9:42 PM Shannen Fontana RN * Neurological / NeuromuscularQuestionAnswerDate of AssessmentAuthorWakefulness [facility]09/03/2024 8:43 AM Ana Chacon, HADzjchsnqnNLT78/23/2025 8:43 AM Ana Chacon, RNMotor RT Upper Pmqjjlmxf728/23/2025 8:43 AM Ana Chacon, RNMotor LT Upper Johytgdil572/23/2025 8:43 AM Ana Chacon, RNMotor RT Lower Jjzidozgq327/23/2025 8:43 AM Ana Chacon, RNMotor LT Lower Yzhsmgmpa148/23/2025 8:43 AM Ana Chacon, RNLanguageWNL 07/03/2025 8:43 AM Ana Chacon, RQSyoxlamtXOT2025 8:43 AM Ana Roberts, RNNeurological / WnteieeitgskuKAA96/23/2025 8:43 AM Ana Roberts, RNLevel of MxzgbpymrfxsfLZG73/23/2025 8:43 AM Ana Chacon, MCLeqduktotgnWQV27/23/2025 8:43 AM Ana Chacon, RNNeuro (Other)gen. /22/2025 9:42 PM Shannen Fontana RNBehavior InterventionsProvided Pyjjycm0807/03/2025 8:43 AM Ana Chacon, RN * GastrointestinalQuestionAnswerDate of AssessmentAuthorGastrointestinalWNL 07/03/2025 8:43 AM Ana Chacon, VNQkrwthzLVV05/23/2025 8:43 AM Ana Roberts, RNBowel JcworeVGE75/23/2025 8:43 AM Ana Chacon, RN Continence (Stool)WNL109/03/2024 8:43 AM Ana Chacon, RNGI SymptomsWNL 07/03/2025 8:43 AM Ana Chacon, RNGI (Other)regular diet06/24/2025 5:31 PM Lizzy Neumann, RN * GenitourinaryQuestionAnswerDate of AssessmentAuthorUrine Description, Voided Dark yellow/renwheoqhptu11/23/2025 8:43 AM Ana Chacon, RN MhzyxvjgaggpaH17/23/2025 8:43 AM Ana Chacon, RNContinence (Urine)WNL 07/03/2025 8:43 AM Ana Chacon, RNUrinary GzfeypvgZXU60/23/2025 8:43 AM Ana Chacon, RNGU (Other)Wqsjga0007/03/2025 8:43 AM Ana Chacon, RN * Delirium AssessmentQuestionAnswerDate of AssessmentAuthorDisorientation0 07/03/2025 8:43 AM Ana Chacon, RNInappropriate Jovvxgtt999/23/2025 8:43 AM Ana Chacon, RNInappropriate Zkcqdgcrfsrhh080/23/2025 8:43 AM Ana Chacon, RNIllusions / Pisvjnuqwehosb378/23/2025 8:43 AM Ana Roberts, RNPsychomotor Uccttnmkdyh008/23/2025 8:43 AM Ana Chacon, RNBehavior Assessment Vwsjd335 8:43 AM Ana Chacon, RN * Fall Risk Assessment (Adult)QuestionAnswerDate of AssessmentAuthorMobility (Gait) 8:43 AM Ana Chacon, [place] History (past 6 months)5 07/03/2025 8:43 AM Ana Chacon, FOLxn78709/03/2024 8:43 AM Ana Chacon, RNIncontinence, Bowel & Hesfyjl814 8:43 AM Ana Chacon, BQLembkuicxlf423/23/2025 8:43 AM Ana Chacon, RNPatient Care Qqwwuiowc503/23/2025 8:43 AM Ana Chacon, RNMobility (Assistance)2 07/03/2025 8:43 AM Ana Chacon, RNCognition (Awareness) 8:43 AM Ana Chacon, [place] Risk Rhbsl5778/23/2025 8:43 AM Ana Chacon, RNMobility (Sensory Deficit) 8:43 AM Ana Chacon, RNUrgency / Lvigbvalz693/23/2025 8:43 AM Ana Chacon, RNCognition (Impulsiveness) 8:43 AM Ana Chacon, RNCognition (Limitations) 8:43 AM Ana Chacon RNFall Risk Level (Adult)Automatically High Risk07/03/2025 8:43 AM Ana Chacon, RN * Fall Interventions (Adult)QuestionAnswerDate of AssessmentAuthorHigh Risk Interventions (Adult)Basic safety interventions initiated, PLUS:;Yellow Fall Precaution wrist band;Yellow non-skid socks;Bed alarm07/03/2025 8:43 AM Ana Roberts, KARIN * Acceptable Level of Pain?AnswerDate of MlznxrghfvGexrwb734/14/2025 5:31 PM Lizzy Woodward RN * Pain Interventions at HomeAnswerDate of TgqoexhkahMyzxcxonxnudb72/14/2025 5:31 PM Lizzy Neumann RN * Vital SignsQuestionAnswerDate of AssessmentAuthorBP PositionSemi-Fowlers 07/03/2025 1:44 PM Mi SchusterAP (mmHg)9007/03/2025 1:44 PM Honey Ricketts * CommentsQuestionAnswerDate of AssessmentAuthorCommentsreport to floor nurse 07/02/2025 9:56 AM Davi Ignacio RN * OUTPUTQuestionAnswerDate of AssessmentAuthorUrine Incontinence Occurrence1 06/27/2025 10:15 AM Kimmie Hammer PCNAStool Incontinence Occurrence1 07/02/2025 4:22 AM Tao Farley DescriptionLarge;Tarry;Pasty 07/03/2025 1:46 PM Honey Schuster * Advance DirectivesQuestionAnswerDate of AssessmentAuthorType of Advance DirectiveLiving Will06/24/2025 5:31 PM Lizzy Neumann RNAdvance Directives?Yes - paper copy with pzjoyiu6006/24/2025 5:31 PM Lizzy Neumann RN * Patient Collaborative GoalsQuestionAnswerDate of AssessmentAuthorHospital Stay Collaborative GoalRemain HDS until DC07/03/2025 8:43 AM Ana Chacon RNMet/Ongoing/Not FvoKym3807/03/2025 2:16 PM Latoya Lujan RNDaily Collaborative GoalProper pain fgzjexp1907/03/2025 8:43 AM Ana Chacon RNMet/Not NykPbq6807/03/2025 2:16 PM Latoya Lujan RNAdd a Second Daily Goal?Yes07/02/2025 7:06 AM Cookie Farley * Body PiercingQuestionAnswerDate of AssessmentAuthorBody Piercing?No06/29/2025 3:55 PM Jody Kimble RN * Second Daily Collaborative GoalQuestionAnswerDate of AssessmentAuthorSecond Daily Collaborative GoalPatient's blood glucose will be qjcqpmoibp94/22/2025 7:06 AM Monty Farley/Ongoing/Not MetNot Met07/02/2025 7:06 AM Cookie Farley * Functional ScreenQuestionAnswerDate of AssessmentAuthorDecline in mobilityNo 06/24/2025 5:31 PM Lizzy Neumann RNDecline in activities of daily living (ADL)No06/24/2025 5:31 PM Lizzy Neumann RNDecline in speech, cognition, or kdofgeuefiRj50/14/2025 5:31 PM Lizzy Neumann RN * Psychosocial ScreenQuestionAnswerDate of AssessmentAuthorGroup Home / Half-Way / Psychiatric Facility?No06/24/2025 5:31 PM Lizzy Neumann RNAbuse?No 06/24/2025 5:31 PM Lizzy Neumann RNMethod(s) of Communication Speak;Read;Write06/24/2025 5:31 PM Lizzy Neumann RNWithin the last year, have you been humiliated or emotionally abused in other ways by your partner or ex-partner?No06/24/2025 5:31 PM Lizzy Neumann RN * Primary ContactQuestionAnswerDate of AssessmentAuthorPermission to Contact After Discharge?Yes06/24/2025 5:31 PM Lizzy Neumann RNContact Name Nyoopvb2506/24/2025 5:31 PM Lizzy Neumann RNRelationshipWife06/24/2025 5:31 PM Lizzy Neumann RNPhone Vqgwiv425671835078/14/2025 5:31 PM Lizzy Woodward RN * Gricelda ScaleQuestionAnswerDate of AssessmentAuthorBaseline Vitals (BP)159/89 06/29/2025 5:19 PM Ana Luisa Libby, CWTphdtzfj246/22/2025 9:56 AM Davi Ignacio RNRespirations207/02/2025 9:56 AM Davi Ignacio RNCirculation2 07/02/2025 9:56 AM Davi Ignacio RNConsciousness 9:56 AM Davi Morales RNO2 Optwguwvzl528/22/2025 9:56 AM Davi Ignacio RNAldrete Gjznu28509/02/2024 9:56 AM Davi Ignacio RN * Drug / AlcoholQuestionAnswerDate of AssessmentAuthorCounseling Desired?No 06/24/2025 5:31 PM Lizzy Neumann RNCurrent Social Drug Use?No 06/24/2025 5:31 PM Lizzy Neumann, RNCurrent ETOH Use?Yes06/24/2025 5:31 PM Lizzy Neumann RN documented as of this encounter Mental Status * Activity & PositioningQuestionAnswerEntry DateAuthorPositioningSelf wlbxsmykgrl62/23/2025 2:40 PM Honey SchusterHead of BedSelf regulated 07/03/2025 2:40 PM Honey Schuster * Isolation & PrecautionsQuestionAnswerEntry DateAuthor$ Clinical Precautions Fall Teffpnwuwby41/22/2025 9:09 AM Davi Ignacio RN * DVT ProphylaxisQuestionAnswerEntry DateAuthor$ QNFpYiovbkvvlb03/20/2025 5:00 PM Liliam Purcell RN * Basic CareQuestionAnswerEntry DateAuthorHygieneDisposable wipes07/02/2025 1:50 AM Cookie Farley * Sedation OutcomesQuestionAnswerEntry DateAuthorSedation Outcomes (Adult)None 07/02/2025 9:57 AM Davi Ignacio RN * Focused Assessment?QuestionAnswerEntry DateAuthorFocused Assessment?No 07/03/2025 8:43 AM Ana Chacon RN * RASS ScoreAnswerEntry EzixUgobau632/23/2025 8:43 AM Ana Chacon, KARIN * CAM-ICU Delirium AssessmentQuestionAnswerEntry DateAuthorDelirium Prevention MeasuresAnticipate needs07/03/2025 8:43 AM Ana Chacon RN * Procedure Start TimeQuestionAnswerEntry DateAuthorPatient in Room Oljm46613 07/02/2025 9:09 AM Davi Ignacio RN * Procedure Start TimeAnswerEntry LgonBrfupt8996905/22/2025 9:30 AM Davi Ignacio RN * Procedure End TimeQuestionAnswerEntry DateAuthorProcedure End Hqer94007 07/02/2025 9:47 AM Davi Ignacio RNPatient Out of Room Cdcq9625637/22/2025 9:58 AM Davi Ignacio RN * Patient InformationQuestionAnswerEntry DateAuthorVoid Prior to Procedure?Yes 07/02/2025 9:09 AM Davi Ignacio RNImplanted DevicesPacemaker;Pacemaker wires07/02/2025 9:09 AM Davi Ignacio RNImpairmentsAmbulation / Mobility 07/02/2025 9:09 AM Davi Ignacio RNNPOGreater than 8 hours07/02/2025 9:09 AM Davi Ignacio RNPregnancy?N/A109/02/2024 9:09 AM Davi Ignacio RN Allergy BandN/A109/02/2024 9:09 AM Davi Ignacio RNID Band StatusApplied 07/02/2025 9:09 AM Davi Ignacio RN * Beta BlockerQuestionAnswerEntry DateAuthorPatient on a Beta Gilberto?Yes 06/29/2025 3:55 PM Jody Kimble RNBeta Gilberto (Last Dose) Wqrp51076 06/29/2025 3:55 PM Jody Kimble RN * Surgical CountsQuestionAnswerEntry DateAuthorCountsN/A109/02/2024 9:09 AM Davi Morales RN * Fire Risk AssessmentQuestionAnswerEntry DateAuthorFire Risk Niact067 9:09 AM Davi Ignacio RNLow Fire Risk BeseipdxoplcqNozxlnpyk07/22/2025 9:09 AM Davi Ignacio RN * Position & PrepQuestionAnswerEntry DateAuthorSite PrepN/A109/02/2024 9:09 AM Davi Ignacio RN * Temperature ManagementQuestionAnswerEntry DateAuthorTemp wirKyib4007/03/2025 1:44 PM Honey Schuster * Notification of Admission/Transfer/DischargeQuestionAnswerEntry DateAuthor Patient Family/Fruit Picker NotificationPatient requests to self-notify family/vulctumkdylvsv70/14/2025 5:31 PM Lizzy Neumann RN * Assessment and Discharge Planning EvaluationQuestionAnswerEntry DateAuthor READMISSION LESS THAN 30 IJMFCb6606/25/2025 1:00 PM Doreen Warren LISW NACSSXLYJYLObywcjl93/15/2025 1:00 PM Doreen Warren LISWHOME HEALTH CARE PRIOR TO GCDCKIYOHQm20/15/2025 1:00 PM Doreen Warren LISWDIALYSIS No06/25/2025 1:00 PM Doreen Warren LISWTRANSPORTATION TO AND/OR FROM APPOINTMENTSFamily/Friend Provides Ride108/26/2024 1:00 PM Doreen Warren LISWFUNCTIONAL STATUS PRIOR TO ADMISSIONIndependent with ADL's 06/25/2025 1:00 PM Doreen Warren LISWREADMISSION RISK SCORE ISRising Risk06/25/2025 1:00 PM Doreen Warren LISWDISCUSSSED WHAT HELP PATIENT WOULD JDEQLli88/15/2025 1:00 PM Doreen Warren LISWCOGNITIVE STATUS Svlpjkeo60/15/2025 1:00 PM Doreen Warren LISWHAS ADVANCE DIRECTIVE ON LBATEg1606/25/2025 1:00 PM Doreen Warren LISWLIVING SITUATIONHome with Wrpotm8906/25/2025 1:00 PM Doreen Warren LISWADMISSION INSURANCEMedicare 06/25/2025 1:00 PM Doreen Warren LISWCONNECTED TO MENTAL HEALTH RYBVCQYMCc58/15/2025 1:00 PM Doreen Warren LISWHOME BEOTARBe90/15/2025 1:00 PM Doreen Warren LISWCONNECTED TO COMMUNITY PIXAMRWMRz63/15/2025 1:00 PM Doreen Warren LISWCONNECTED TO SUBSTANCE ABUSE SERVICESNo 06/25/2025 1:00 PM Doreen Warren LISW * Discharge Planning ScreenQuestionAnswerEntry DateAuthorDisability ([place] Disability Score) 5:31 PM Lizzy Neumann RNWalking limitation (self reported) 5:31 PM Lizzy Neumann RNPrior living maeszq742 5:31 PM Lizzy Neumann RNAge (Years)8 06/24/2025 5:31 PM Lizzy Neumann RNEarly Discharge Planing Score8 06/24/2025 5:31 PM Lizzy Neumann, RN * Influenza Vaccine Screen- March through October (age 6 months or greater) QuestionAnswerEntry DateAuthorHave you had an influenza vaccine this season? Srider8706/29/2025 3:55 PM Jody Kimble RN * Human Trafficking ScreeningQuestionAnswerEntry DateAuthorCan You Come and Go as You Please?Yes06/24/2025 5:31 PM Lizzy Neumann RNIs Anyone Forcing YouNo108/25/2024 5:31 PM Lizzy Neumann RN * Meds 2 BedsQuestionAnswerEntry DateAuthorPrior to discharge, our [facility] pharmacy will deliver your medications to your bedside.Yes07/03/2025 2:21 PM Latoya Lujan RN * Abuse ScreeningQuestionAnswerEntry DateAuthorAre you currently in a situation where someone is hurting you?No06/29/2025 3:55 PM Jody Kimlbe RN * Nutrition ScreenQuestionAnswerEntry DateAuthorHave you recently lost weight without trying?No06/24/2025 5:31 PM Lizzy Neumann RNHave you been eating poorly because of a decreased appetite?Yes06/24/2025 5:31 PM Lizzy Woodward RNWithin the past 12 months, you worried that your food would run out before you got the money to buymore.Never true06/24/2025 5:31 PM Lizzy Neumann RN * Discharge Plan and InterventionsQuestionAnswerEntry DateAuthorDIALYSISNo 06/28/2025 2:08 PM Angela Jain RNDISCHARGE PLAN DISCUSSED Patient;Patient's Szelom6906/28/2025 2:08 PM Angela Jain, RNAGREEMENT OF DISCHARGE NXYSFwl34/18/2025 2:08 PM Angela Jain RNNew [facility] Agency for DischargeOption Care06/28/2025 2:08 PM Angela Jain RNWas an Episode of Care created for this encounter?No06/28/2025 2:08 PM Angela Jain, ROCÍOATIENT TREATMENT PREFERENCESDC to home06/28/2025 2:08 PM Angela Martinez RNMELLO PLANDischarge to Home06/28/2025 2:08 PM Angela Jain, RNType of ServiceTermo Infusion;Registered Nurse06/28/2025 2:08 PM Angela Jain RNDISCHARMAKI HOME HEALTH WRTUQof53/18/2025 2:08 PM Angela Jain RNHome Health Care ProviderElara Vmthds2306/28/2025 2:08 PM nAgela Jain RNPalliative Care QmipcaaeMm19/18/2025 2:08 PM ESTHill, Brandis M, RNDISCHARGE CARE INTERVENTIONS2.00;1.00;1.250977459103/18/2025 2:08 PM Angela Martinez, RNCase Management Discharge DqwzhbppyKrv26/18/2025 2:08 PM Angela Jain RNDISCHARGE DISPOSITIONDischarge to Home06/28/2025 2:08 PM Angela Jain RN * Discharge InformationQuestionAnswerEntry DateAuthorTransportation at Discharge Primary nhjmxes6606/24/2025 5:31 PM Lizzy Neumann RNHas discharge transport been arranged?No06/24/2025 5:31 PM Lizzy Neumann RNWe may be able to connect you with resources and agencies that can help you by making a referral onyour behalf. Would you like help?No06/24/2025 5:31 PM Lizzy Neumann RNIn the past 12 months has the [employer], gas, oil, or water [employer] threatened to shut off services in your home?No06/24/2025 5:31 PM Lizzy Woodward RNIn the last 12 months, was there a time when you were not able to pay the mortgage or rent on time?No06/24/2025 5:31 PM Lizzy Neumann RNIn the past 12 months, has lack of transportation kept you from medical appointments or from getting medications?No06/24/2025 5:31 PM Lizzy Woodward RN * [place]-Suicide Severity Rating Scale (C-SSRS)QuestionAnswerEntry DateAuthor 2) Current suicidal ixewnvucEg56/14/2025 5:31 PM Lizzy Neumann RN1) Wish to be abupIz1706/24/2025 5:31 PM Lizzy Neumann RN6) C-SSRS Suicidal NykyeazwSc58/14/2025 5:31 PM Lizzy Neumann RN * 6 Clicks Basic Mobility PTQuestionAnswerEntry DateAuthorDifficulty turning over in hsb08309/03/2024 11:00 AM Lorraine Schmitz, PTDifficulty sitting down and standing up from a chair with atpq70509/03/2024 11:00 AM Lorraine Schmitz, PTDifficulty moving from lying on back to sitting on the side of the kqj55409/03/2024 11:00 AM Lorraine Schmitz, PTHelp from another person moving to and from bed to a zkaaq45009/03/2024 11:00 AM Lorraine Schmitz, PT Help from another person to walk in hospital adnw71209/03/2024 11:00 AM Lorraine Fam, PTHelp from another person climbing 3-5 steps with a mprjuxs440/23/2025 11:00 AM Lorraine Schmitz, PTPT 6 Clicks Score18 07/03/2025 11:00 AM Lorraine Schmitz, PTPT Discharge RecommendationsHome 07/03/2025 11:00 AM Lorraine Schmitz, PT * Skin IntegrityQuestionAnswerEntry DateAuthorHead Skin OppnpeidqHSD59/23/2025 8:43 AM Ana Chacon, RNNeck Skin FalcfuuuePDB55/23/2025 8:43 AM Ana Roberts, RNThoracic Skin XtrzulxynMTI44/23/2025 8:43 AM Ana Chacon, RNArms Skin IntegritySee LDA;Device qarequn5207/03/2025 8:43 AM Ana Roberts, RNSacral/Buttock Region Skin ItkvvetigRYY25/23/2025 8:43 AM Ana Chacon, RNLegs Skin PzwcalubxCET92/23/2025 8:43 AM Ana Chacon, RNFeet Skin IntegrityExcessively dry07/03/2025 8:43 AM Ana Chacon, RNOther Skin DytszpsllCMA44/20/2025 9:00 AM Carol Hernandez RN * Pre-Procedure Verification ([place] Protocol)QuestionAnswerEntry DateAuthor Procedural FjqiHbipixhnw18/22/2025 9:09 AM Davi Ignacio RNRelevant DjtvikpwPiowracpq23/22/2025 9:09 AM Davi Ignacio RNCurrent H&P and/or Other Relevant OgzkasylhesgzDdxsbwbyf39/22/2025 9:09 AM Davi Ignacio RN Relevant BrbhjahnbnvSdocgnshr39/22/2025 9:09 AM Davi Ignacio RNIntra- Procedure PbncbxgbigchNgyioywfy44/22/2025 9:09 AM Davi Ignacio RNLab Case Performed InOther (comment)07/02/2025 9:09 AM Davi Ignacio RNAllergies Reviewed?Yes07/02/2025 9:09 AM Davi Ignacio RNPatijeniffer Identifiers Jxstsrtnq27/22/2025 9:09 AM Davi Ignacio RN * Vital SignsQuestionAnswerEntry DateAuthorRhythm QiwpnznbNpcvu23/17/2025 2:45 PM Cookie Garcia RN * Patient Belongings at BedsideQuestionAnswerEntry DateAuthorBelongings at BedsideDentures;Vision;Clothing;Electronic vulrocg1606/24/2025 5:31 PM Lizzy Woodward RNDenturesLowers;Cokyzj2108/25/2024 5:31 PM Lizzy Neumann RNVision - Corrective PvxnizIvmscct60/14/2025 5:31 PM Lizzy Neumann RNClothingPants;Jacket/coat;Shirt108/25/2024 5:31 PM Lizzy Neumann RNPatient ElectronicsCell phone;Knjflep26/14/2025 5:31 PM Lizzy Woodward RN * Patient Belongings Sent HomeQuestionAnswerEntry DateAuthorBelongings Sent Home No krdurfqwqx39/14/2025 5:31 PM Lizzy Neumann RN * Patient Belongings SecuredQuestionAnswerEntry DateAuthorBelongings Secured in Safe or LockerNo rquvrlyemb71/14/2025 5:31 PM Lizzy Neumann RN * Medications Brought by patient?QuestionAnswerEntry DateAuthorMedications Brought by Patient?No06/24/2025 5:31 PM Lizzy Neumann RN * Risk of SuicideAnswerEntry DateAuthorNegative Hiwuxl2806/24/2025 5:31 PM Lizzy Woodward RN * Environmental MonitoringQuestionAnswerEntry DateAuthorIs the room temperature within range?68 - 75 07/02/2025 9:09 AM Davi Ignacio RNIs the room humidity within range?20 - 60 %07/02/2025 9:09 AM Davi Ignacio RN * Procedure LocationQuestionAnswerEntry DateAuthorProcedure LocationNon-Invasive Klmeqmrvij10/22/2025 9:09 AM Davi Ignacio RNTEE Probe Insertion Time 392109607/02/2025 9:34 AM Davi Ignacio RNBubble Study PerformedYes 07/02/2025 9:42 AM Davi Ignacio RNTEE Probe Removal Ygge1533974/22/2025 9:47 AM Davi Ignacio RNProbvandana StatusProbe Clean07/02/2025 9:47 AM Davi Morales RNCase Performed InProcedure Room A109/02/2024 9:09 AM Davi Morales RN * ReligionQuestionAnswerEntry TiaxByplfrRuyowgeyAqlzdgty02/14/2025 5:31 PM Lizzy Woodward RN * Ability to Answer Admission Screening QuestionsQuestionAnswerEntry DateAuthor Able to Answer Screening Questions?Yes06/24/2025 5:31 PM Lizzy Neumann RNEligible for Virtual Nurse Admission/Discharge/JlzffxludQi06/14/2025 5:31 PM Lizzy Neumann RNPossible Candidate for Virtual Nursing? (VCN Nurse Only)No06/24/2025 5:31 PM Lizzy Neumann RN * Violence/Aggression Assessment Checklist (VAAC)QuestionAnswerEntry DateAuthor History of LhbzklinAz32/14/2025 5:31 PM Lizzy Neumann RNUncooperative No06/24/2025 5:31 PM Lizzy Neumann RNVerbal ZyoiaYk7406/24/2025 5:31 PM Lizzy Neumann, RNHostile/Attacking with FonvkohGh28/14/2025 5:31 PM Lizzy Woodward, WBOannsawAu99/14/2025 5:31 PM Lizzy Neumann, RN Person Being FzcwhiovJukudki11/14/2025 5:31 PM Lizzy Neumann, RN Assaultive/ZcrwuzhydRq57/14/2025 5:31 PM Lizzy Neumann, RNViolence Screening Risk Intervention Mavsz95308/25/2024 5:31 PM Lizzy Neumann, RN Violence Screening SUB Risk Zhsbo312 5:31 PM Lizzy Neumann, RN * Twan ScaleQuestionAnswerEntry DateAuthorSensory Ccostvocudl580/23/2025 8:43 AM Ana Chacon, APFulgtsis718/23/2025 8:43 AM Ana Chacon, RN Plspadla481/23/2025 8:43 AM Ana Chacon, BVZjvtqoqq649/23/2025 8:43 AM Ana Chacon, ASOssrmvkjd908/23/2025 8:43 AM Ana Chacon, RN Friction & Cmbkp75609/03/2024 8:43 AM Ana Chacon, RNBraden Score20 07/03/2025 8:43 AM Ana Chacon, RNSkin Risk LevelNo Risk07/03/2025 8:43 AM Ana Chacon, RN * Behavior LevelQuestionAnswerEntry IticFmyonnBfjdkoyjHZX89/14/2025 5:31 PM Lizzy Woodward, RN * H&V Procedure PerformedAnswerEntry XjfeEwkzdsXVQ82/22/2025 9:09 AM Davi Ignacio, RN * IntegumentaryQuestionAnswerEntry DateAuthorMucous JjdqvbuhzMQH01/23/2025 8:43 AM Ana Chacon, RNSkin Temperature / VghvzmxjHPB89/23/2025 8:43 AM Ana Roberts, RNHydrationDecreased jfqibq0909/03/2024 8:43 AM Ana Chacon, ZZFhlkkvxuibfkuJ36/23/2025 8:43 AM Ana Chacon, RNSkin Color Pale07/03/2025 8:43 AM Ana Chacon, RN * Skin InterventionsQuestionAnswerEntry DateAuthor$ Skin InterventionsElevate heels;Ddngxyftqcey44/23/2025 8:43 AM Ana Chacon, RNSleep Surface (Bed)Hill-Rom (Advanta 2 and VersaCare) Pressure Redistribution Mattress 07/03/2025 8:43 AM Ana Chacon RNLow Risk InterventionsBraden Scale Prevention Strategies /22/2025 9:42 PM Shannen Fontana, RN * Numeric Pain ScaleQuestionAnswerEntry DateAuthorPain Score4/10109/03/2024 11:37 AM Ana Chacon, RN * PainQuestionAnswerEntry DateAuthorPAIN: Pain HocoyqbhOmoy87/23/2025 8:43 AM Ana Chacon, Marcella Location RnssldjhlpDrncvyodw10/22/2025 9:42 PM Shannen Garcia, ROCÍOain Scale Used? (S)Fchucpb9307/03/2025 8:43 AM Ana Chacon RNPain Description (Q)Aching;Dvtuehfn03/22/2025 9:42 PM Shannen Fontana, Marcella InterventionsMedication (See MAR)07/03/2025 8:43 AM Ana Roberts, RN * Oxygen TherapyQuestionAnswerEntry DateAuthorO2 DeviceRoom air07/03/2025 1:44 PM Katrina Schuster Flow Rate (l/min) 9:31 AM Davi Ignacio, KARIN * RespiratoryQuestionAnswerEntry DateAuthorRespiratory (WNL)X109/03/2024 8:43 AM Ana Chacon RNRespiratory UiwtzsrVDF66/23/2025 8:43 AM Ana Chacon, RNBreath Sounds - Bilat AnteriorDiminished bases07/03/2025 8:43 AM Ana Chacon, RNBreath Sounds - Bilat PosteriorDiminished bases 07/02/2025 5:03 PM Lena Perez RRespiratory (Other)RA, pt denies SOB06/24/2025 5:31 PM Lizzy Neumann RN * CardiovascularQuestionAnswerEntry DateAuthorHeart WisrgnRFO76/23/2025 8:43 AM Ana Chacon, XWBdhegltxgbcjbbY02/23/2025 8:43 AM Ana Chacon, RNRUE Peripheral PulsesWNL (2+)07/03/2025 8:43 AM Ana Chacon, RNLUE Peripheral PulsesWNL (2+)07/03/2025 8:43 AM Ana Chacon, RNRLE Peripheral Pulses1+07/03/2025 8:43 AM Ana Chacon, RNLLE Peripheral Pulses1+07/03/2025 8:43 AM Ana Chacon, RNCapillary RefillWNL 07/03/2025 8:43 AM Ana Chacon, IQYlujxhprTXF72/23/2025 8:43 AM Ana Roberts, RNCardiovascular (Other)AICD109/02/2024 5:03 PM DEEPALIPriscilla Lena Wills R * EdemaQuestionAnswerEntry DateAuthorEdema ZcyozppxGWW13/23/2025 8:43 AM Ana Roberts, RNEdema QualityPitting 1+07/02/2025 9:42 PM Shannen Fontana RN * Neurological / NeuromuscularQuestionAnswerEntry DateAuthorWakefulnessWNL 07/03/2025 8:43 AM Ana Chacon, TDKmanebinfIAI00/23/2025 8:43 AM Ana Roberts, RNMotor RT Upper Erngiqkzn862/23/2025 8:43 AM Ana Chacon, RNMotor LT Upper Bumfapiln337/23/2025 8:43 AM Ana Chacon, RNMotor RT Lower Ycsnhitkt038/23/2025 8:43 AM Ana Chacon, RNMotor LT Lower Iqmvbjcnb903/23/2025 8:43 AM Ana Chacon, RNLanguageWNL 07/03/2025 8:43 AM Ana Chacon, WQSqhmykyhCCV82/23/2025 8:43 AM Ana Roberts, RNNeurological / DvtciunqtvebiCUP60/23/2025 8:43 AM Ana Roberts, RNLevel of RuixqrhctfsygIWL11/23/2025 8:43 AM Ana Chacon, IPFehxloocdyvZHT04/23/2025 8:43 AM Ana Chacon, RNNeuro (Other)gen. /22/2025 9:42 PM Shannen Fontana, RNBehavior InterventionsProvided Ktmofwe5607/03/2025 8:43 AM Ana Chacon, RN * GastrointestinalQuestionAnswerEntry AlrvOsipstLhhpnpsxfuoephtqAOM80/23/2025 8:43 AM Ana Chacon, WNHdkfmyoZAP70/23/2025 8:43 AM Ana Chacon, RNBowel MlvvkiXUO00/23/2025 8:43 AM Ana Chacon, RNContinence (Stool)WNL109/03/2024 8:43 AM Ana Chacon, RNGI ZtrombykQYX33/23/2025 8:43 AM Ana Chacon, RNGI (Other)regular diet06/24/2025 5:31 PM EST Lizzy Rogers, RN * GenitourinaryQuestionAnswerEntry DateAuthorUrine Description, VoidedDark yellow/lsjoxgpqjsvc44/23/2025 8:43 AM Ana Chacon, RNGenitourinaryX 07/03/2025 8:43 AM Ana Chacon, RNContinence (Urine)WNL109/03/2024 8:43 AM Ana Chacon, RNUrinary KtytgoegOAU57/23/2025 8:43 AM Ana Chacon, RNGU (Other)Gvvxsn9007/03/2025 8:43 AM Ana Chacon, RN * Delirium AssessmentQuestionAnswerEntry YlhjNbasxlSabpxysamkeush379/23/2025 8:43 AM Ana Chacon, RNInappropriate Uqmimjmz778/23/2025 8:43 AM Ana Roberts, RNInappropriate Vbqticzguliiy413/23/2025 8:43 AM Ana Chacon, RNIllusions / Gejmmynbkozdpl298/23/2025 8:43 AM Ana Chacon, RNPsychomotor Irqqyovndqp158/23/2025 8:43 AM Ana Chacon, RNBehavior Assessment Mmhxd855 8:43 AM Ana Chacon, RN * Fall Risk Assessment (Adult)QuestionAnswerEntry DateAuthorMobility (Gait)2 07/03/2025 8:43 AM Ana Chacon, RNFall History (past 6 months)5 07/03/2025 8:43 AM Ana Chacon, EQHmh98909/03/2024 8:43 AM Ana Chacon, RNIncontinence, Bowel & Raoacwi398 8:43 AM Ana Chacon, ZJOghvvwqwose279/23/2025 8:43 AM Ana Chacon, RNPatient Care Khogvqtll881/23/2025 8:43 AM Ana Chacon, RNMobility (Assistance)2 07/03/2025 8:43 AM Ana Chacon, RNCognition (Awareness) 8:43 AM Ana Chacon, RNFall Risk Kuenj2595/23/2025 8:43 AM Ana Chacon, RNMobility (Sensory Deficit) 8:43 AM Ana Chacon, RNUrgency / Wtjblrhqg794/23/2025 8:43 AM Ana Chacon RNCognition (Impulsiveness) 8:43 AM Ana Chacon RNCognition (Limitations) 8:43 AM Ana Chacon RNFall Risk Level (Adult)Automatically High Risk07/03/2025 8:43 AM Ana Chacon, RN * Fall Interventions (Adult)QuestionAnswerEntry DateAuthorHigh Risk Interventions (Adult)Basic safety interventions initiated, PLUS:;Yellow Fall Precaution wrist band;Yellow non-skid socks;Bed alarm07/03/2025 8:43 AM Ana Roberts, RN * Acceptable Level of Pain?AnswerEntry DyboYwnwbp825/14/2025 5:31 PM Lizzy Woodward RN * Pain Interventions at HomeAnswerEntry TvbfMmhzjytwdhqbr84/14/2025 5:31 PM Lizzy Woodward RN * Vital SignsQuestionAnswerEntry DateAuthorBP PositionSemi-Dwnpjlm6307/03/2025 1:44 PM Ida Schuster Locationleft arm07/03/2025 1:44 PM Alexandra Ricketts (mmHg)9007/03/2025 1:44 PM Honey Schuster * Time Out ([place] Protocol)QuestionAnswerEntry DateAuthorPre-Sedation Vital Sign TyeugrrlydvoZondbyztc46/22/2025 9:29 AM Davi Ignacio RNProcedure to be ZrxbdoxkcPBK53/22/2025 9:29 AM Davi Ignacio RNTime OutConfirmed 07/02/2025 9:29 AM Davi Ignacio RN * SedationQuestionAnswerEntry DateAuthorSedation Qecer60709/02/2024 9:48 AM Davi Morales RN * CommentsQuestionAnswerEntry DateAuthorCommentsreport to floor nurse07/02/2025 9:56 AM Davi Ignacio RN * Procedure PersonnelQuestionAnswerEntry DateAuthorProcedural Attending [place] # [id number]/02/2024 9:09 AM Davi Ignacio, RNProcedural Attending Name (last, first)Usckku1307/02/2025 9:09 AM Davi Ignacio, NUDzssfyEjcgbsx44/22/2025 9:09 AM Davi Ignacio, RNNurse #5Flmowes44/22/2025 9:09 AM Davi Ignacio RN * OUTPUTQuestionAnswerEntry AtxuFriqhiAnhnh57154/23/2025 8:49 AM Ana Chacon RNUrine Incontinence Admmyahten381/17/2025 10:15 AM DEEPALIWright, Kimmie, PCNAStool Incontinence Cylcgzwqxf348/22/2025 4:22 AM ESTCourtland, CatherineStool Raakhmqfys976/23/2025 1:46 PM DEEPALIBarjazmine, MariahUrine Wvchhouile610/23/2025 1:46 PM Yanique SchusterhStool SourceBowel movement 07/03/2025 1:46 PM Tommie Schusterol DescriptionLarge;Tarry;Pasty 07/03/2025 1:46 PM Mariely Honey * INTAKEQuestionAnswerEntry DateAuthorP.O.2580607/03/2025 8:43 AM Ana Chacon RN% Meal Wecfmhel874%07/03/2025 8:43 AM Ana Chacon RN Additional Intake?Yes06/26/2025 7:54 AM ESTWrrj, Kimmie, PCNA * Advance DirectivesQuestionAnswerEntry DateAuthorType of Advance Directive Living Will06/24/2025 5:31 PM Lizzy Neumann RNAdvance Directives?Yes - paper copy with ocurcxj2706/24/2025 5:31 PM Lizzy Neumann RN * Transfer Note (Completed by Sending Unit)QuestionAnswerEntry DateAuthorSending RN Name, Unit & Contact #KARIN Souza06/29/2025 5:51 PM Libby Orosco RN Transferring to:[address]06/29/2025 5:51 PM Libby Orosco RNSBAR Report Given to:KARIN Medina via [facility]06/29/2025 5:51 PM Libby Orosco RN * PAFY1FrrlonAhbvr AvyrHymmgt2138/22/2025 9:51 AM Davi Ignacio RN * Patient Collaborative GoalsQuestionAnswerEntry DateAuthorHospital Stay Collaborative GoalRemain HDS until DC07/03/2025 8:43 AM Ana Chacon RNMet/Ongoing/Not QmrGhb7507/03/2025 2:16 PM Latoya Lujan RNDaily Collaborative GoalProper pain xqlgcoq4207/03/2025 8:43 AM Ana Chacon, RNMet/Not UmyZab0307/03/2025 2:16 PM Latoya Lujan RNAdd a Second Daily Goal?Yes07/02/2025 7:06 AM Cookie Farley * Body PiercingQuestionAnswerEntry DateAuthorBody Piercing?No06/29/2025 3:55 PM Jody Kimble RN * Second Daily Collaborative GoalQuestionAnswerEntry DateAuthorSecond Daily Collaborative GoalPatient's blood glucose will be vewbepmlip02/22/2025 7:06 AM Monty Farley/Ongoing/Not MetNot Met07/02/2025 7:06 AM Cookie Nolasco * Somnolence / Sedation ScaleQuestionAnswerEntry DateAuthorSomnolence / Sedation Kzaeg144 8:15 AM Aga Jaimes RN * Functional ScreenQuestionAnswerEntry DateAuthorDecline in nscwmlwnIz52/14/2025 5:31 PM Lizzy Neumann RNDecline in activities of daily living (ADL)No 06/24/2025 5:31 PM Lizzy Neumann RNDecline in speech, cognition, or nemvhdtijbQf64/14/2025 5:31 PM Lizzy Neumann RN * Psychosocial ScreenQuestionAnswerEntry DateAuthorGroup Home / Half-Way / Psychiatric Facility?No06/24/2025 5:31 PM Lizzy Neumann RNAbuse?No 06/24/2025 5:31 PM Lizzy Neumann RNMethod(s) of Communication Speak;Read;Write06/24/2025 5:31 PM Lizzy Neumann RNWithin the last year, have you been humiliated or emotionally abused in other ways by your partner or ex-partner?No06/24/2025 5:31 PM Lizzy Neumann RN * Primary ContactQuestionAnswerEntry DateAuthorPermission to Contact After Discharge?Yes06/24/2025 5:31 PM Lizzy Neumann RNContact NameRoseann 06/24/2025 5:31 PM Lizzy Neumann LMLcuqfvkefuazDzfb74/14/2025 5:31 PM Lizzy Neumann RNPhone Xiidlp960509811399/14/2025 5:31 PM Lizzy Neumann RN * Patient LocationQuestionAnswerEntry DateAuthorPatient Vzblxmii606/22/2025 8:00 PM Shannen Fontana RN * Gricelda ScaleQuestionAnswerEntry DateAuthorBaseline Vitals (BP)159/89 06/29/2025 5:19 PM Libby Orosco LDVzxghepm180/22/2025 9:56 AM Davi Ignacio RNRespirations207/02/2025 9:56 AM Davi Ignacio RNCirculation2 07/02/2025 9:56 AM Davi Ignacio RNConsciousness 9:56 AM Davi Morales RNO2 Edcerdkhlk327/22/2025 9:56 AM Davi Ignacio RNAldrete Ccfzv02209/02/2024 9:56 AM Davi Ignacio RN * Drug / AlcoholQuestionAnswerEntry DateAuthorCounseling Desired?No06/24/2025 5:31 PM Lizzy Neumann RNCurrent Social Drug Use?No06/24/2025 5:31 PM Lizzy Neumann RNCurrent ETOH Use?Yes06/24/2025 5:31 PM Lizzy Neumann RN documented in this encounter Discharge Summaries * Joseph Garcia MD - 07/03/2025 8:08 PM EST DISCHARGE SUMMARY [address] [address] Manolo Roche Date of : 1935 89 year old male Attending No att. providers found Date of Admission 06/24/2025 Date of Discharge 07/03/25 Final Diagnosis: MSSA bacteremia Discharge Procedure Orders INTERROGATION DEVICE EVAL, IN PERSON, SINGLE, DUAL, MULTIPLE LEAD IMPLANTABLE DEFIBRILLATOR SYSTEM PRE-ADMISSION TESTING CONSULT Referral Priority: Routine Referral Type: Service Level Authorization Referral Location: [facility] PRE ADMISSION TESTING Number of Visits Requested: 1 Expiration Date: 06/28/26 NEUROSURGERY SERVICE REQUEST Referral Priority: Routine Referral Type: Service Level Authorization Referral Location: [facility] NEUROSURGERY Number of Visits Requested: 3 Expiration Date: 07/03/26 HOME CARE SERVICE REQUEST Referral Priority: Routine Referral Type: Home Health Referral Referral Location: [facility] Number of Visits Requested: 3 Expiration Date: 07/03/26 Future Appointments Date Time Provider Department Center 08/01/2025 11:00 AM Jacqueline Baptiste MD ID [id number] [facility] Condition at Discharge improved Symptoms to look out for after discharge: Fever and New or Severe Pain Activity no restrictions Disposition home with home care Functional Status ambulatory with assistance For addt'l facility discharge info click 'Facility Discharge' tab. Reason for Hospitalization /Hospital Course 89 yo M admitted on 06/24/2025 with PMH of HFrEF s/p biventricular ICD, CAD s/p PCI, CKD3, BPH s/p TURP who presented for MSSA bacteremia likely related to recent genitourinary instrumentation. Bloodcultures initially showed 1/2 GPC on 06/24 and 06/26, with subsequent cultures from 06/28 showing no growth to date. MRI thoracic spine on 06/27 revealed T10 acute/subacute compression fracture with enhancement extending to T9 unable to rule out osteomyelitis, while MRI lumbar spine showed diffuse enhancement and marrow edema in S1 concerning for possible osteomyelitis. TTE and LINDA was negative for endocarditis. ID was consulted and recommended 6 weeks of cefazolin through 08/09/25. Neurosurgerywas consulted for the compression fracture and recommended outpatient follow up. Pain was controlled with prn oxycodone by time of discharge. He was also found to have OMARI and started on ferrous sulfate. An EGD showed no evidence of bleeding. Course c/b hyperglycemia which improved with insulin titration. By time of discharge, he was feeling much better and eager to get home. MSSA bacteremia - IV cefazolin for 6 weeks through 08/09/25 - PICC placed before dc - follow up with ID acute/subacute compression fracture unable to rule out osteomyelitis - follow up with spine Dr. Mendez in 2-4 weeks - oxycodone 5 q6h prn (#20) provided Hyperglycemia T1DM - home glargine increased to 15 at bedtime - home novolog 5 prandial with sliding scale insulin - follow up with endocrinology S/p TURP - follow up with urology Significant Findings LINDA 07/02 Procedure Summary Left ventricular systolic function is focally abnormal superimposed on global. Focal LV systolic dysfunction consists of akinesia of the entire apex. The left ventricular ejection fraction (LVEF) is 35% +/- 5% Normal right ventricular size and function. Dilated LA, RA. There is mild mitral regurgitation due to a focal P2 prolapse. There is mild tricuspid regurgitation. Noninvasive hemodynamic assessment is consistent with normal pulmonary artery systolic pressure. Evidence of shunting is seen in the atria. This is minimal and is suggestive of a patent foramen ovale. No evidence of a thrombus in the left atrial appendage. No evidence of valvular vegetations. Aortic atherosclerosis is present EGD 06/29 IMPRESSION: Normal EGD No evidence of active or recent GI bleed. No explanation for anemia found on EGD Medication List START taking these medications acetaminophen extra strength 500 MG Tabs tablet Commonly known as: TYLENOL Take 2 Tablets by mouth 3x Daily. Creon 50489-99196 units Cpep Generic drug: Pancrelipase (Rry-Lxym-Xrwj) Take 24,000 Units by mouth 3 times daily (with meals). FeroSul 325 (65 Fe) MG tablet Generic drug: ferrous sulfate Take 1 Tablet by mouth every other day. Lidocaine Pain Relief 4 % Ptch patch Generic drug: lidocaine Place 1 Patch on the skin every 24 hours. To back pain oxyCODONE 5 MG immediate release tablet Take 1 Tablet by mouth every 6 hours as needed for up to 5 days. CONTINUE taking these medications aspirin EC 81 MG tablet atorvastatin 40 mg tablet Commonly known as: LIPITOR insulin aspart 100 UNIT/ML injection Commonly known as: NovoLOG insulin glargine 100 UNIT/ML injection Commonly known as: LANTUS losartan 25 MG tablet Commonly known as: COZAAR metoprolol 25 MG tablet Commonly known as: LOPRESSOR paroxetine 40 MG tablet Commonly known as: PAXIL spironolactone 25 MG tablet Commonly known as: ALDACTONE tamsulosin 0.4 MG capsule Commonly known as: FLOMAX Where to Get Your Medications These medications were sent to [facility] Med[facility] to [facility] [address] [place] [address] Hours: 8am-7pm M-F, 10am-2pm Sat 7:45am-2pm Wednesday acetaminophen extra strength 500 MG Tabs tablet Creon 98412-20414 units Cpep FeroSul 325 (65 Fe) MG tablet Lidocaine Pain Relief 4 % Ptch patch oxyCODONE 5 MG immediate release tablet I provided the patient and/or family/surrogate with the following information: Explanation of the primary diagnosis, and secondary diagnoses where applicable, including test results, Discussion of any new medications and treatments, including expected benefits and potential major side effects, Explanation of previous treatments or medications that are discontinued, Discussionof post- hospital day-to-day care needs, and Follow-up plans, and warning signs that should prompt more urgent follow-up Joseph Garcia MD Hospitalist I personally spent a total of 45 minutes coordinating discharge. documented in this encounter Discharge Instructions * Discharge Instructions* Joseph Garcia MD - 07/03/2025 12:45 PM EST Dear Manolo Roche, You were hospitalized at [facility] from 06/24/2025 to 07/03/25 for a blood infection. Please follow up with the infectious disease doctor for ongoing management. You will need IV antibiotics for 6 weeks. Please also follow up with the spine surgeons for your back pain. Please follow up with your e ndocrinologist for ongoing diabetes management. Please follows up with your urologist. Sincerely, Joseph Garcia MD Hospitalist [facility] documented in this encounter Medications at Time of Discharge MedicationSigDispense QuantityRefillsLast FilledStart DateEnd Date Pancrelipase, Ims-Vqzr-Hfkq, 28492-21717 units CPEP Take 24,000 Units by mouth 3 times daily (with meals). 270 Capsule 07/03/2025 3:09 PM EST07/03/2025 ferrous sulfate 325 mg (65 mg elemental) tablet Take 1 Tablet by mouth every other day. 45 Tablet 07/03/2025 3:09 PM EST lidocaine (LIDODERM) 4 % PTCH patch Place 1 Patch on the skin every 24 hours. To back pain 30 Patch 07/03/2025 3:09 PM EST acetaminophen (TYLENOL) 500 MG tablet Take 2 Tablets by mouth 3x Daily. 540 Tablet 07/03/2025 3:09 PM EST07/03/2025 paroxetine (PAXIL) 40 MG tablet Take 40 mg by mouth daily. tamsulosin (FLOMAX) 0.4 MG capsule Take 0.4 mg by mouth daily. aspirin EC 81 MG tablet Take 81 mg by mouth daily. atorvastatin (LIPITOR) 40 mg tablet Take 40 mg by mouth daily. losartan (COZAAR) 25 MG tablet Take 25 mg by mouth daily. metoprolol (LOPRESSOR) 25 MG tablet Take 12.5 mg by mouth daily. spironolactone (ALDACTONE) 25 MG tablet Take 25 mg by mouth daily. insulin glargine (LANTUS) 100 UNIT/ML injection Inject 15 Units under the skin at bedtime. insulin aspart (NovoLOG) 100 UNIT/ML injection Inject 5 Units under the skin 3 times daily (before meals). With sliding scale insulin as already established oxyCODONE 5 MG immediate release tablet Indications:Acute midline low back pain without sciaticaTake 1 Tablet by mouth every 6 hours as needed for up to 5 days. 20 Tablet 07/03/2025 3:09 PM EST/documented as of this encounter Progress Notes * Jacqueline Baptiste MD - 07/03/2025 11:01 AM EST Images from the original note were not included. ID FOLLOW UP INTERVAL HISTORY: Patient seen earlier this a.m., he reports pain is generally controlled. Tolerating antibiotics without nausea or diarrhea. No fevers. PHYSICAL EXAMINATION: Patient Vitals for the past 24 hrs: BP Temp Temp src Pulse Resp SpO2 O2 Device 07/03/25 0702 125/87 98.1 ??F (36.7 ??C) Oral 80 18 97 % Room air 07/02/25 2134 141/87 97.8 ??F (36.6 ??C) Oral 59 18 97 % Room air 07/02/25 1750 126/76 97.8 ??F (36.6 ??C) Oral 61 18 100 % Room air 07/02/25 1453 146/73 98.2 ??F (36.8 ??C) Oral 59 18 96 % Room air Tmax (24 hours): 98.2 ??F (36.8 ??C) Constitutional: No acute distress, awake and alert, on room air Eyes: No icterus or injection Ears, nose, mouth, throat: No oral lesions Cardiovascular: RRR, no murmur, well healed left chest ICD Respiratory: Clear to auscultation anteriorly Gastrointestinal: Abdomen non-distended Genitourinary: Kimble catheter now removed Musculoskeletal: No joint effusions Integumentary: No skin rash Extremities: No significant lower extremity edema MEDS: insulin glargine, 15 Units, Subcutaneous, At Bedtime insulin lispro, 5 Units, Subcutaneous, 3x Daily AC enoxaparin, 40 mg, Subcutaneous, Daily ertapenem, 1,000 mg, Intravenous, Q24H Antibiotic senna, 8.6 mg, Oral, BID gwvqoqj-sgsjwf-vmekqzgw, 24,000 Units, Oral, 3x Daily with Meals polyethylene glycol, 17 g, Oral, Daily losartan, 25 mg, Oral, Daily spironolactone, 25 mg, Oral, Daily ceFAZolin, 2,000 mg, Intravenous, Q8H Antibiotic lidocaine, 1 Patch, Transdermal, Every 24 hours ferrous sulfate, 325 mg, Oral, 2x Daily AC insulin lispro, 1-6 Units, Subcutaneous, 3x Daily AC PARoxetine, 40 mg, Oral, Daily atorvastatin, 40 mg, Oral, At Bedtime tamsulosin, 0.4 mg, Oral, Daily metoprolol, 12.5 mg, Oral, At Bedtime acetaminophen, 1,000 mg, Oral, 3x Daily DATA: CBC/PT/INR 07/03/2025 07/02/2025 07/01/2025 06/30/2025 2:03 AM 3:23 AM 5:24 AM 11:29 AM WBC 7.7 8.3 6.4 7.7 RBC 3.25 3.17 3.45 3.20 Hgb 8.5 8.6 9.0 8.6 Hct 26.4 25.2 27.8 25.6 MCV 81 80 81 80 RDW 16.1 15.5 15.6 15.8 Plt 388 407 445 433 WBC/Diff 07/02/2025 07/01/2025 06/30/2025 3:23 AM 5:24 AM 11:29 AM Neutro% 71.6 67.3 76.5 Lymphs% 13.2 19.3 9.3 Monos% 12.8 10.8 11.7 Eos% 1.1 1.3 1.5 Basos% 1.3 1.2 1.0 Basic Metabolic Panel 07/03/2025 07/02/2025 07/01/2025 06/30/2025 2:03 AM 3:23 AM 5:24 AM 11:29 AM Na 132 134 134 135 K 4.8 4.7 4.8 4.3 Cl 100 102 102 102 CO2 21 26 26 26 Gap 16 11 11 11 Glu 252 233 298 274 BUN 17 17 17 16 Cr 0.99 0.99 0.96 0.91 Ca 8.0 7.9 7.9 8.0 Date of last serum creatinine: 07/03/2025 Estimated Creatinine Clearance: 44.65 mL/min (by C-G formula based on SCr of 0.99 mg/dL). Estimated Glomerular Filtration Rate: 73.3 mL/min/1.73m2 (by CKD-EPI based on SCr of 0.99 mg/dL). Hepatic/Biliary/Pancreas No lab values to display. C-Reactive Protein (mg/dL) Date Value 06/26/2025 8.9 (H) Sed Rate (ESR) (mm/Hr) Date Value 06/26/2025 37 (H) CULTURE results for blood, CSF, pyogen, sputum and urine that have been resulted. Does not include cultures that are in process nor other cultures. Blood Culture 06/28/2025 06/28/2025 06/26/2025 06/26/2025 06/24/2025 12:37 PM 5:58 AM 3:09 PM 3:00 PM 8:52 PM Blood Culture No growth to date, culture reincubated No Growth Positive Culture Report No Growth No Growth Anaerobic bottle yields Staphylococcus aureus Positive Culture Report Anaerobic bottle yields Staphylococcus aureus IMAGING STUDIES: Proc. sub type: LINDA procedure: CARD TRANSESOPH ECHO W/ANESTH. Accession no: [id number] Procedure Summary Left ventricular systolic function is focally abnormal superimposed on global. Focal LV systolic dysfunction consists of akinesia of the entire apex. The left ventricular ejection fraction (LVEF) is 35% +/- 5% Normal right ventricular size and function. Dilated LA, RA. There is mild mitral regurgitation due to a focal P2 prolapse. There is mild tricuspid regurgitation. Noninvasive hemodynamic assessment is consistent with normal pulmonary artery systolic pressure. Evidence of shunting is seen in the atria. This is minimal and is suggestive of a patent foramen ovale. No evidence of a thrombus in the left atrial appendage. No evidence of valvular vegetations. Aortic atherosclerosis is present See above for further details. Micro: 06/20 blood cultures - MSSA 06/24 blood cultures 1/4 bottles MSSA 06/26 blood cultures 1/4 bottles MSSA 06/28 blood cultures x2 NGTD ASSESSMENT/PLAN: 89-year-old man with a past medical history of HFrEF, CAD status post PCI, ICD, HTN, DM, CKD, status post pancreatectomy for IPMN, BPH s/p recent TURP, currently admitted with MSSA bacteremia suspected from urinary tract source in the setting of urinary retention with hydronephrosis status post Kimble catheter, MRI with evidence of T10 compression fracture and probable superimposed osteomyelitis. Persistent bacteremia concerning for possible cardiac device endocarditis. Patient is status post normal EGD on 06/29. LINDA on 07/02 negative for evidence of endocarditis. Recommendations: -Continue cefazolin 2 g IV Q8H - plan for course through 08/09/2025 with weekly lab monitoring as per OPAT antibiotic orders -Can stop further IV ertapenem -PICC line placed for completion of IV antibiotic course -Once outpatient IV antibiotics set up he could be discharged from the ID standpoint, outpatient follow-up scheduled with me on 08/01/25. Follow-up with primary care and urology as recommended. Plan of care discussed with the attending Dr. Garcia, please call if any further questions. Will sign off Jacqueline Baptiste MD Pager [phone] or by [employer] decision-making in this case included the following: I personally discussed management of the case or recommendations with primary team or another consulting team. * Lena Bello - 07/02/2025 3:20 PM EST Lamin shipman as ordered. * Joseph Garcia MD - 07/02/2025 2:08 PM EST Hospital Medicine Progress Note Manolo Roche Age [age] year old male [id number] Admitted 06/24/2025 5:46 PM Hospital Day: 9 Subjective HOSPITAL COURSE: 89 yo M admitted on 06/24/2025 with PMH of HFrEF s/p biventricular ICD, CAD s/p PCI, CKD3, BPH s/p TURP who presented for MSSA bacteremia likely related to recent genitourinary instrumentation. Bloodcultures initially showed 1/2 GPC on 06/24 and 06/26, with subsequent cultures from 06/28 showing no growth to date. MRI thoracic spine on 06/27 revealed T10 acute/subacute compression fracture with enhancement extending to T9 concerning for osteomyelitis, while MRI lumbar spine showed diffuse enhancement and marrow edema in S1 concerning for possible osteomyelitis. TTE was negative for endocarditis, and EGD on 06/29 was normal. Patient was treated with cefazolin (previously on Zosyn at OSH), and LINDA was pending for 07/02 with plans for PICC line placement if LINDA negative and blood cultures remained negative. Patient's hemoglobin decreased from 10.4 to 8.8 during admission, with iron studies showing iron of 19 and saturation of 8% will need PO iron once infection is treated; EGD was negative for bleeding source. Plan for LINDA Monday 07/02. INTERVAL HPI: Currently feeling pretty good. Had some back pain overall improving. No sob or chest pain. Updated bedside 07/02. Objective PHYSICAL EXAM: BP 165/72 (BP Location: right arm) Pulse 58 Temp 98.7 ??F (37.1 ??C) (Oral) Resp 16 Ht 5' 10 (1.778 m) Wt 135 lb (61.2 kg) SpO2 97% BMI 19.37 kg/m?? General Appearance: comfortable Eyes: EOMI, anicteric sclera Cardiac: RRR, no murmurs Resp: lungs CTAB, normal wob Abdomen: normal BS, soft, non-tender Extremities: wwp, no LE edema Neuro: a&o, symmetric face, able to lift both legs off the bed DATA Labs reviewed: cbc, bmp, blood cultures Assessment & Plan MSSA bacteremia Presence of implantable cardioverter-defibrillator (ICD) Postoperative urinary retention S/P TURP (transurethral resection of prostate) Here with MSSA bacteremia, most likely related to recent genitourinary instrumentation (TURP). Thisis occurring in the setting of subacute back pain and presence of an implantable cardiac device. MRI spine with acute/subacute compression fx of T10 unable to rule out vertebral OM. S/p LINDA awaiting official results. - TTE on admission negative for endocarditis - LINDA 07/02 pending - last Bcx 06/28 with NGTD - ID consulted - cefazolin - ertapenum - await final recs - will need PICC likely - remove kimble 07/02 Acute midline low back pain without sciatica MRI spine with acute/subacute compression fx of T10 unable to rule out vertebral OM. Back pain slowly improving. - tylenol 1g TID - oxy 5-7.5 q6h prn - follow up with neurosurgery in clinic with Dr. 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 Follows with endocrinology at [facility]. Labile BG. Home prandial novolog 5 + sliding scale insulin and glargine 12 from recently. - uncontrolled; A1C 12.8% in 03/2025 - incr lantus 12 at bedtime - incr lispro 5 units TID - SSI HFrEF (heart failure with reduced ejection fraction) CAD (coronary artery disease) Essential hypertension Hyperlipidemia Last EF 35% 06/2025. - stable; no active chest pain; no signs of volume overload - continue home ASA 81 mg daily - continue home atorvastatin 40 mg HS - continue home losartan 25 mg daily - continue home toprol 12.5 mg HS - continue home spironolactone 25 mg daily - not on SGLTi (clarify with endo/cards outpatient) Stage 3 chronic kidney disease (HCC) - initially presented to [facility] with an DENISHA (Scr 1.7); since resolved - Scr of 1.15 on presentation here - renally dose medications Anemia Hgb 10.4 on admission -> 8.8 No active signs of bleeding Iron 19 iron sat 8% hemolysis labs negative b12, folate wnl - iron supplement outpatient after infection resolves - EGD 06/29 normal Left arm swelling Likely 2/2 infiltrated IV at OSH Improving with elevation LUE DVT US negative for DVT Dispo - pending final abx plan - likely home DVT PPX: lovenox CODE: DNR Comfort Care Arrest (Do Not Intubate Prior to Arrest) DISPO: pending clinical improvement Joseph Garcia MD I personally spent a total of 54 minutes which includes [id number] and sjj-mkwh-[id number]-face time spent on preparing to see the patient including reviewing prior notes and test results, obtaining a separate history and physical exam, counseling and educating the patient, ordering medications/tests/proc edures/referrals as clinically indicated, and documenting information in the electronic medical record. The total time does not include time spent on other separately reported services. * Jacqueline Baptiste MD - 07/02/2025 12:10 PM EST Images from the original note were not included. ID FOLLOW UP INTERVAL HISTORY: Patient seen earlier this a.m., he reports stable back pain but getting around a little better than he was previously. No fevers in the last 24 hours, tolerating antibiotics. PHYSICAL EXAMINATION: Patient Vitals for the past 24 hrs: BP Temp Temp src Pulse Resp SpO2 O2 Device O2 Flow Rate (l/min) 07/02/25 1039 165/72 98.7 ??F (37.1 ??C) Oral 58 16 97 % Room air -- 07/02/2557 -- -- -- -- -- -- Room air -- 07/02/25 0951 156/76 -- -- 60 12 99 % -- -- 07/02/25 0948 167/99 -- -- 60 12 99 % -- -- 07/02/25 0945 158/81 -- -- 60 17 99 % -- -- 07/02/2542 162/78 -- -- 60 12 99 % -- -- 07/02/25 0939 164/77 -- -- 62 13 98 % -- -- 07/02/2536 161/79 -- -- 62 13 98 % -- -- 07/02/2533 158/79 -- -- 63 17 98 % -- -- 07/02/2531 -- -- -- -- -- -- Nasal cannula 2 07/02/2530 158/84 -- -- 62 15 100 % -- -- 07/02/25 0927 158/72 -- -- 61 13 97 % -- -- 07/02/25 0924 158/75 -- -- 60 11 97 % -- -- 07/02/2523 163/92 -- -- 60 11 98 % -- -- 07/02/25 0920 161/83 -- -- 60 14 97 % -- -- 07/02/2515 154/77 -- -- 60 10 98 % -- -- 07/02/25 0647 167/58 97.9 ??F (36.6 ??C) Oral 62 18 100 % Room air -- 07/02/25 0441 -- -- -- -- -- -- Room air -- 07/02/25 0239 -- -- -- -- -- -- Room air -- 07/02/25 0204 155/82 98.4 ??F (36.9 ??C) Oral 59 18 97 % Room air -- 07/02/25 0026 -- -- -- -- -- -- Room air -- 07/01/25 2239 -- -- -- -- -- -- Room air -- 07/01/25 2200 135/69 98.1 ??F (36.7 ??C) Oral 59 18 96 % Room air -- 07/01/25 1435 136/78 97 ??F (36.1 ??C) Oral 71 19 97 % Room air -- Tmax (24 hours): 98.7 ??F (37.1 ??C) Constitutional: No acute distress, awake and alert, on room air Eyes: No icterus or injection Ears, nose, mouth, throat: No oral lesions Cardiovascular: RRR, well healed left chest ICD Respiratory: Normal chest expansion Gastrointestinal: Abdomen non-distended Genitourinary: Kimble catheter in place draining clear urine Musculoskeletal: No joint effusions Integumentary: No skin rash Extremities: No significant lower extremity edema MEDS: insulin glargine, 12 Units, Subcutaneous, At Bedtime insulin lispro, 5 Units, Subcutaneous, 3x Daily AC [START ON 07/03/2025] enoxaparin, 40 mg, Subcutaneous, Daily ertapenem, 1,000 mg, Intravenous, Q24H Antibiotic senna, 8.6 mg, Oral, BID npdgjih-cxyrsh-fnwzjgzd, 24,000 Units, Oral, 3x Daily with Meals polyethylene glycol, 17 g, Oral, Daily losartan, 25 mg, Oral, Daily spironolactone, 25 mg, Oral, Daily ceFAZolin, 2,000 mg, Intravenous, Q8H Antibiotic lidocaine, 1 Patch, Transdermal, Every 24 hours ferrous sulfate, 325 mg, Oral, 2x Daily AC insulin lispro, 1-6 Units, Subcutaneous, 3x Daily AC PARoxetine, 40 mg, Oral, Daily atorvastatin, 40 mg, Oral, At Bedtime tamsulosin, 0.4 mg, Oral, Daily metoprolol, 12.5 mg, Oral, At Bedtime acetaminophen, 1,000 mg, Oral, 3x Daily DATA: CBC/PT/INR 07/02/2025 07/01/2025 06/30/2025 3:23 AM 5:24 AM 11:29 AM WBC 8.3 6.4 7.7 RBC 3.17 3.45 3.20 Hgb 8.6 9.0 8.6 Hct 25.2 27.8 25.6 MCV 80 81 80 RDW 15.5 15.6 15.8 Plt 407 445 433 WBC/Diff 07/02/2025 07/01/2025 06/30/2025 3:23 AM 5:24 AM 11:29 AM Neutro% 71.6 67.3 76.5 Lymphs% 13.2 19.3 9.3 Monos% 12.8 10.8 11.7 Eos% 1.1 1.3 1.5 Basos% 1.3 1.2 1.0 Basic Metabolic Panel 07/02/2025 07/01/2025 06/30/2025 3:23 AM 5:24 AM 11:29 AM Na 134 134 135 K 4.7 4.8 4.3 Cl 102 102 102 CO2 26 26 26 Gap 11 11 11 Glu 233 298 274 BUN 17 17 16 Cr 0.99 0.96 0.91 Ca 7.9 7.9 8.0 Date of last serum creatinine: 07/02/2025 Estimated Creatinine Clearance: 44.65 mL/min (by C-G formula based on SCr of 0.99 mg/dL). Estimated Glomerular Filtration Rate: 73.3 mL/min/1.73m2 (by CKD-EPI based on SCr of 0.99 mg/dL). Hepatic/Biliary/Pancreas No lab values to display. C-Reactive Protein (mg/dL) Date Value 06/26/2025 8.9 (H) Sed Rate (ESR) (mm/Hr) Date Value 06/26/2025 37 (H) CULTURE results for blood, CSF, pyogen, sputum and urine that have been resulted. Does not include cultures that are in process nor other cultures. Blood Culture 06/28/2025 06/28/2025 06/26/2025 06/26/2025 06/24/2025 12:37 PM 5:58 AM 3:09 PM 3:00 PM 8:52 PM Blood Culture No growth to date, culture reincubated No growth to date, culture reincubated Positive Culture Report No Growth No Growth Anaerobic bottle yields Staphylococcus aureus Positive Culture Report Anaerobic bottle yields Staphylococcus aureus IMAGING STUDIES: No new results from last visit. Micro: 06/20 blood cultures - MSSA 12/14 blood cultures 1/4 bottles MSSA 16 blood cultures 1/4 bottles MSSA 18 blood cultures x2 NGTD ASSESSMENT/PLAN: 89-year-old man with a past medical history of HFrEF, CAD status post PCI, ICD, HTN, DM, CKD, status post pancreatectomy for IPMN, BPH s/p recent TURP, currently admitted with MSSA bacteremia suspected from urinary tract source in the setting of urinary retention with hydronephrosis status post Kimble catheter, MRI with evidence of T10 compression fracture and probable superimposed osteomyelitis. Persistent bacteremia concerning for possible cardiac device endocarditis. Patient is status post normal EGD on 06/29. Recommendations: -Continue cefazolin 2 g IV Q8H (day 8) and ertapenem 1 g IV Q24H (day 5) -Repeat blood cultures negative to date -Await LINDA today, if evidence of cardiac device involvement will need EP evaluation for consideration of explantation -ID continue to follow, anticipate need for prolonged IV antibiotic course at discharge Jacqueline Baptiste MD Pager [phone] or by [employer] chat * Jose Núñez DO - 07/02/2025 9:22 AM EST BRIEF SUPERVISOR CORRESPONDENCE SECTION NOTE: Code status reversed to full code for procedure then will change back to DNR CCA after procedure. Pt in full agreement. Jose Núñez DO [facility], PGY6 [facility] [place] * Cookie Boyd - 07/02/2025 1:44 AM EST At 0111, informed Dr. Cotto via secure text chat that patient's [id number] and that patient is now NPO after midnight for upcoming procedure. New order received to administer 6 units of Lispro insulin and reassess blood glucose at 0400. * Jacqueline Baptiste MD - 07/01/2025 1:02 PM EST Images from the original note were not included. ID FOLLOW UP INTERVAL HISTORY: Patient is sleeping comfortably at the time of my visit, I did not wake him. No acute overnight events reported, no fever in the last 24 hours. PHYSICAL EXAMINATION: Patient Vitals for the past 24 hrs: BP Temp Temp src Pulse Resp SpO2 O2 Device 07/01/25 0520 143/81 97.5 ??F (36.4 ??C) Temporal 62 18 96 % Room air 07/01/25 0503 -- -- -- -- -- -- Room air 07/01/25 0149 -- -- -- -- -- -- Room air 06/30/25 2342 -- -- -- -- -- -- Room air 06/30/25 2042 134/84 97.9 ??F (36.6 ??C) Temporal 61 18 98 % Room air 06/30/25 1502 138/72 97.7 ??F (36.5 ??C) Oral 61 18 99 % Room air Tmax (24 hours): 97.9 ??F (36.6 ??C) Constitutional: No acute distress, sleeping comfortably, on room air Eyes: No icterus or injection Ears, nose, mouth, throat: No oral lesions Cardiovascular: RRR, well healed left chest ICD Respiratory: Normal chest expansion Gastrointestinal: Abdomen non-distended Genitourinary: Kimble catheter in place draining clear urine Musculoskeletal: No joint effusions Integumentary: No skin rash Extremities: No significant lower extremity edema MEDS: insulin glargine, 8 Units, Subcutaneous, At Bedtime [START ON 07/03/2025] enoxaparin, 40 mg, Subcutaneous, Daily insulin lispro, 2 Units, Subcutaneous, 3x Daily AC ertapenem, 1,000 mg, Intravenous, Q24H Antibiotic senna, 8.6 mg, Oral, BID liekfjb-ipbssi-peajzuhp, 24,000 Units, Oral, 3x Daily with Meals polyethylene glycol, 17 g, Oral, Daily losartan, 25 mg, Oral, Daily spironolactone, 25 mg, Oral, Daily ceFAZolin, 2,000 mg, Intravenous, Q8H Antibiotic lidocaine, 1 Patch, Transdermal, Every 24 hours ferrous sulfate, 325 mg, Oral, 2x Daily AC insulin lispro, 1-6 Units, Subcutaneous, 3x Daily AC PARoxetine, 40 mg, Oral, Daily atorvastatin, 40 mg, Oral, At Bedtime tamsulosin, 0.4 mg, Oral, Daily metoprolol, 12.5 mg, Oral, At Bedtime acetaminophen, 1,000 mg, Oral, 3x Daily DATA: CBC/PT/INR 07/01/2025 06/30/2025 06/29/2025 06/29/2025 5:24 AM 11:29 AM 11:46 AM 4:34 AM WBC 6.4 7.7 -- 9.5 RBC 3.45 3.20 -- 3.67 Hgb 9.0 8.6 -- 9.8 Hct 27.8 25.6 -- 29.6 MCV 81 80 -- 81 RDW 15.6 15.8 -- 15.9 Plt 445 433 -- 518 aPTT -- -- -- 36 INR -- -- 2.65 2.71 WBC/Diff 07/01/2025 06/30/2025 06/29/2025 5:24 AM 11:29 AM 4:34 AM Neutro% 67.3 76.5 74.3 Lymphs% 19.3 9.3 13.5 Monos% 10.8 11.7 10.3 Eos% 1.3 1.5 1.2 Basos% 1.2 1.0 0.8 Basic Metabolic Panel 07/01/2025 06/30/2025 06/29/2025 06/29/2025 5:24 AM 11:29 AM 11:46 AM 4:34 AM Na 134 135 137 141 K 4.8 4.3 4.4 3.1 Cl 102 102 104 116 CO2 26 26 25 21 Gap 11 11 12 7 Glu 298 274 78 41 BUN 17 16 16 14 Cr 0.96 0.91 0.88 0.58 Ca 7.9 8.0 8.6 6.0 PO4 -- -- -- 2.4 Date of last serum creatinine: 07/01/2025 Estimated Creatinine Clearance: 46.04 mL/min (by C-G formula based on SCr of 0.96 mg/dL). Estimated Glomerular Filtration Rate: 76 mL/min/1.73m2 (by CKD-EPI based on SCr of 0.96 mg/dL). Hepatic/Biliary/Pancreas 06/29/2025 4:34 AM T Prot 4.4 Albumin 2.2 D Bili 0.05 T Bili 0.2 Alk Phos 85 ALT <3 AST 13 C-Reactive Protein (mg/dL) Date Value 06/26/2025 8.9 (H) Sed Rate (ESR) (mm/Hr) Date Value 06/26/2025 37 (H) CULTURE results for blood, CSF, pyogen, sputum and urine that have been resulted. Does not include cultures that are in process nor other cultures. Blood Culture 06/28/2025 06/28/2025 06/26/2025 06/26/2025 06/24/2025 12:37 PM 5:58 AM 3:09 PM 3:00 PM 8:52 PM Blood Culture No growth to date, culture reincubated No growth to date, culture reincubated Positive Culture Report No growth to date, culture reincubated No Growth Anaerobic bottle yields Staphylococcus aureus Positive Culture Report Anaerobic bottle yields Staphylococcus aureus IMAGING STUDIES: No new results from last visit. Micro: 06/20 blood cultures - MSSA 06/24 blood cultures 1/4 bottles MSSA 06/26 blood cultures 1/4 bottles MSSA 06/28 blood cultures x2 NGTD ASSESSMENT/PLAN: 89-year-old man with a past medical history of HFrEF, CAD status post PCI, ICD, HTN, DM, CKD, status post pancreatectomy for IPMN, BPH s/p recent TURP, currently admitted with MSSA bacteremia suspected from urinary tract source in the setting of urinary retention with hydronephrosis status post Kimble catheter, MRI with evidence of T10 compression fracture and probable superimposed osteomyelitis. Persistent bacteremia concerning for possible cardiac device endocarditis. Patient is status post normal EGD on 06/29. Recommendations: -Continue cefazolin 2 g IV Q8H (day 7) and ertapenem 1 g IV Q24H (day 4) -Following repeat blood cultures - negative to date -Await LINDA, if evidence of cardiac device involvement will need EP evaluation for consideration of explantation -ID continue to follow, anticipate need for prolonged IV antibiotic course at discharge. Jacqueline Baptiste MD Pager [phone] or by [employer] * Maribel Romero MD - 07/01/2025 12:00 PM EST Hospital Medicine Progress Note Manolo Roche Age [age] year old male [id number] Admitted 06/24/2025 5:46 PM Hospital Day: 8 Subjective HOSPITAL COURSE: 89 yo M admitted on 06/24/2025 with PMH of HFrEF s/p biventricular ICD, CAD s/p PCI, CKD3, BPH s/p TURP who presented for MSSA bacteremia likely related to recent genitourinary instrumentation. Bloodcultures initially showed 1/2 GPC on 06/24 and 06/26, with subsequent cultures from 06/28 showing no growth to date. MRI thoracic spine on 06/27 revealed T10 acute/subacute compression fracture with enhancement extending to T9 concerning for osteomyelitis, while MRI lumbar spine showed diffuse enhancement and marrow edema in S1 concerning for possible osteomyelitis. TTE was negative for endocarditis, and EGD on 06/29 was normal. Patient was treated with cefazolin (previously on Zosyn at OSH), and LINDA was pending for 07/02 with plans for PICC line placement if LINDA negative and blood cultures remained negative. Patient's hemoglobin decreased from 10.4 to 8.8 during admission, with iron studies showing iron of 19 and saturation of 8% will need PO iron once infection is treated; EGD was negative for bleeding source. Plan for LINDA Monday 07/02. INTERVAL HPI: NAEO. States he feels much better today Objective PHYSICAL EXAM: BP 143/81 (BP Location: right arm) Pulse 62 Temp 97.5 ??F (36.4 ??C) (Temporal) Resp 18 Ht 5' 10 (1.778 m) Wt 135 lb (61.2 kg) SpO2 96% BMI 19.37 kg/m?? General: nad HEENT: MMM Cv: S1; S2; normal rate; normal rhythm; no murmurs, rubs, or gallops Pulmy: ctab Abdomen: Soft; non-tender; non-distended; normal bowel sounds; no guarding or RBT Back: Lower Paraspinal/midline tenderness in the lumbar region; bilateral positive straight leg raise; no CVA tenderness Extremities: LUE 1+ edema, resolving; pulses intact and symmetrical Neuro: Alert; oriented x3; conversational; CN 2-12 grossly intact; normal strength in all extremities; normal sensation; no focal deficit; no saddle anesthesia Skin: Warm; dry; no obvious rash DATA select: Labwork is notable for severe hyperglycemia 298-303, anemia stable 9.0 Order for tomorrow: Labwork bmp, mag, cbc Assessment & Plan MSSA bacteremia Presence of implantable cardioverter-defibrillator (ICD) Acute midline low back pain without sciatica Postoperative urinary retention S/P TURP (transurethral resection of prostate) 89 y/o M with PMH of HFrEF s/p biventricular ICD, CAD s/p PCI, CKD3, and BPH s/p recent TURP admitted with MSSA bacteremia, most likely related to recent genitourinary instrumentation. This is occurring in the setting of subacute back pain and presence of an implantable cardiac device, both of which raise concern for deep-seated infection, such as vertebral osteomyelitis, discitis, and ICD-associated infection. Transferred to [facility] for advanced imaging and definitive source evaluation. Arrives having already received 2 full days of appropriate antibiotic coverage. - admit to 8E - consulting ID given MSSA + ICD + possible OM/discitis - TTE on admission negative for endocarditis - EP approve ICD compatibility for MRI - continue cefazolin - ID consulted rec c/w cefazolin, repeat Bcx2 due to minimal draw on admission, linda plan for 06/28 deferred to evaluate EGD prior - MRI T/L spine 06/27 showing T10 compression with possible osteomyelitis , Lumbar OM - Spine ortho consulted, rec standing T/L-spine xray - Bcx2 06/24 07/13 GPC - Repeat Bcx2 06/26 07/13 GPC - Repeat Bcx2 06/28 NGTD - oxy 5/oxy 7.5 mod/severe pain, dilaudid 0.2 for breakthrough - GI consulted for EGD 06/29 unremarkable - LINDA tentatively planned for Monday 07/02, npo midnight Wednesday - PICC line Wednesday if LINDA negative and Bcx 06/28 negative Type 1 diabetes mellitus with hyperglycemia (HCC) History of pancreatectomy 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 Follows with endocrinology at [facility]. Labile BG - uncontrolled; A1C 12.8% in 04/2025 - lantus 8 units at bedtime while npo (home 10 units likely needs 12-14) - lispro sliding scale insulin TID AC - lispro 2 units TID - glucose checks TID AC + HS - hypoglycemia protocol - carb controlled diet -consider endocrine c/s in AM HFrEF (heart failure with reduced ejection fraction) CAD (coronary artery disease) Essential hypertension Hyperlipidemia - stable; no active chest pain; no signs of volume overload - continue home ASA 81 mg daily - continue home atorvastatin 40 mg HS - continue home losartan 25 mg daily - continue home toprol 12.5 mg HS - continue home spironolactone 25 mg daily Stage 3 chronic kidney disease (HCC) - initially presented to [facility] with an DENISHA (Scr 1.7); since resolved - Scr of 1.15 on presentation here - renally dose medications Anemia Hgb 10.4 on admission -> 8.8 No active signs of bleeding Iron 19 iron sat 8% hemolysis labs negative b12, folate wnl - iron supplement outpatient after infection resolves - EGD 06/29 normal Left arm swelling Likely 2/2 infiltrated IV at OSH Improving with elevation LUE DVT US negative for DVT DVT PPX: lovenox CODE: DNR Comfort Care Arrest (Do Not Intubate Prior to Arrest) DISPO: Maribel Romero MD * Maribel Romero MD - 06/30/2025 11:34 AM EST Hospital Medicine Progress Note Manolo Roche Age [age] year old male [id number] Admitted 06/24/2025 5:46 PM Hospital Day: 7 Subjective HOSPITAL COURSE: INTERVAL HPI: NAEO Objective PHYSICAL EXAM: BP 146/69 (BP Location: right arm) Pulse 61 Temp 97.3 ??F (36.3 ??C) (Temporal) Resp 18 Ht 5' 10 (1.778 m) Wt 135 lb (61.2 kg) SpO2 97% BMI 19.37 kg/m?? General: nad HEENT: MMM Cv: S1; S2; normal rate; normal rhythm; no murmurs, rubs, or gallops Pulmy: ctab Abdomen: Soft; non-tender; non-distended; normal bowel sounds; no guarding or RBT Back: Lower Paraspinal/midline tenderness in the lumbar region; bilateral positive straight leg raise; no CVA tenderness Extremities: LUE 1+ edema; pulses intact and symmetrical Neuro: Alert; oriented x3; conversational; CN 2-12 grossly intact; normal strength in all extremities; normal sensation; no focal deficit; no saddle anesthesia Skin: Warm; dry; no obvious rash DATA select: Labwork is notable for bg hyperglycemic 201-296 Order for tomorrow: Labwork bmp, mg Assessment & Plan MSSA bacteremia Presence of implantable cardioverter-defibrillator (ICD) Acute midline low back pain without sciatica Postoperative urinary retention S/P TURP (transurethral resection of prostate) 89 y/o M with PMH of HFrEF s/p biventricular ICD, CAD s/p PCI, CKD3, and BPH s/p recent TURP admitted with MSSA bacteremia, most likely related to recent genitourinary instrumentation. This is occurring in the setting of subacute back pain and presence of an implantable cardiac device, both of which raise concern for deep-seated infection, such as vertebral osteomyelitis, discitis, and ICD-associated infection. Transferred to [facility] for advanced imaging and definitive source evaluation. Arrives having already received 2 full days of appropriate antibiotic coverage. - admit to 8E - consulting ID given MSSA + ICD + possible OM/discitis - TTE on admission negative for endocarditis - EP approve ICD compatibility for MRI - continue cefazolin - ID consulted rec c/w cefazolin, repeat Bcx2 due to minimal draw on admission, linda plan for 06/28 deferred to evaluate EGD prior - MRI T/L spine 06/27 showing T10 compression with possible osteomyelitis , Lumbar OM - Spine ortho consulted, rec standing T/L-spine xray - Bcx2 06/24 07/13 GPC - Repeat Bcx2 06/26 07/13 GPC - Repeat Bcx2 06/28 NGTD - oxy 5/oxy 7.5 mod/severe pain, dilaudid 0.2 for breakthrough - GI consulted for EGD 06/29 unremarkable - LINDA tentatively planned for Monday 07/02, npo midnight Wednesday - PICC line Wednesday if LINDA negative and Bcx 06/28 negative Type 1 diabetes mellitus with hyperglycemia (HCC) History of pancreatectomy 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 Follows with endocrinology at [facility]. - uncontrolled; A1C 12.8% in 04/2025 - lantus 8 units at bedtime while npo - lispro sliding scale insulin TID AC - glucose checks TID AC + HS - hypoglycemia protocol - carb controlled diet HFrEF (heart failure with reduced ejection fraction) CAD (coronary artery disease) Essential hypertension Hyperlipidemia - stable; no active chest pain; no signs of volume overload - continue home ASA 81 mg daily - continue home atorvastatin 40 mg HS - continue home losartan 25 mg daily - continue home toprol 12.5 mg HS - continue home spironolactone 25 mg daily Stage 3 chronic kidney disease (HCC) - initially presented to [facility] with an DENISHA (Scr 1.7); since resolved - Scr of 1.15 on presentation here - renally dose medications Anemia Hgb 10.4 on admission -> 8.8 No active signs of bleeding Iron 19 iron sat 8% hemolysis labs negative b12, folate wnl - iron supplement outpatient after infection resolves - GI consulted, plan for EGD prior to LINDA Left arm swelling LUE DVT US pending r/o dvt Likely 2/2 infiltrated IV at OSH Improving with elevation DVT PPX: lovenox CODE: DNR Comfort Care Arrest (Do Not Intubate Prior to Arrest) DISPO: Maribel Romero MD * Jacqueline Baptiste MD - 06/30/2025 10:05 AM EST Images from the original note were not included. ID FOLLOW UP INTERVAL HISTORY: Noting ongoing back pain this a.m. with need for repositioning. Denies other new complaints, tolerating antibiotics. No fevers PHYSICAL EXAMINATION: Patient Vitals for the past 24 hrs: BP Temp Temp src Pulse Resp SpO2 O2 Device 06/30/25 0557 146/69 97.3 ??F (36.3 ??C) Temporal 61 18 97 % Room air 06/29/25 2023 112/60 97.8 ??F (36.6 ??C) Temporal 90 18 100 % Room air 06/29/25 1847 149/70 98 ??F (36.7 ??C) Oral 60 18 98 % Room air 06/29/25 1731 112/64 -- -- 72 16 94 % Room air 06/29/25 1718 96/65 98.3 ??F (36.8 ??C) Temporal 71 16 96 % Room air 06/29/25 1557 159/89 98.5 ??F (36.9 ??C) Temporal 59 17 100 % Room air 06/29/25 1401 142/66 98.1 ??F (36.7 ??C) Oral 60 18 100 % Room air Tmax (24 hours): 98.5 ??F (36.9 ??C) Constitutional: No acute distress, awake and alert, on room air Eyes: No icterus or injection Ears, nose, mouth, throat: No oral lesions Cardiovascular: RRR, no murmur, well healed left chest ICD Respiratory: Clear to auscultation bilaterally Gastrointestinal: Abdomen soft, no-tender, non-distended Genitourinary: Kimble catheter in place draining clear urine Musculoskeletal: No elicitable spine tenderness to palpation Integumentary: No skin rash Extremities: Mild LUE forearm edema, no erythema, tenderness or fluctuance noted Neurologic: No focal neurologic deficits appreciated MEDS: insulin glargine, 8 Units, Subcutaneous, At Bedtime ertapenem, 1,000 mg, Intravenous, Q24H Antibiotic senna, 8.6 mg, Oral, BID [id number], 24,000 Units, Oral, 3x Daily with Meals polyethylene glycol, 17 g, Oral, Daily losartan, 25 mg, Oral, Daily spironolactone, 25 mg, Oral, Daily ceFAZolin, 2,000 mg, Intravenous, Q8H Antibiotic lidocaine, 1 Patch, Transdermal, Every 24 hours ferrous sulfate, 325 mg, Oral, 2x Daily AC insulin lispro, 1-6 Units, Subcutaneous, 3x Daily AC PARoxetine, 40 mg, Oral, Daily atorvastatin, 40 mg, Oral, At Bedtime tamsulosin, 0.4 mg, Oral, Daily metoprolol, 12.5 mg, Oral, At Bedtime acetaminophen, 1,000 mg, Oral, 3x Daily enoxaparin, 40 mg, Subcutaneous, Daily DATA: CBC/PT/INR 06/29/2025 06/29/2025 06/28/2025 11:46 AM 4:34 AM 1:35 AM WBC -- 9.5 7.0 RBC -- 3.67 3.31 Hgb -- 9.8 8.8 Hct -- 29.6 26.6 MCV -- 81 80 RDW -- 15.9 15.3 Plt -- 518 463 aPTT -- 36 -- INR 2.65 2.71 -- WBC/Diff 06/29/2025 06/28/2025 4:34 AM 1:35 AM Neutro% 74.3 71.9 Lymphs% 13.5 13.5 Monos% 10.3 12.0 Eos% 1.2 1.8 Basos% 0.8 0.7 Basic Metabolic Panel 06/29/2025 06/29/2025 06/28/2025 11:46 AM 4:34 AM 1:35 AM Na 137 141 133 K 4.4 3.1 4.6 Cl 104 116 103 CO2 25 21 24 Gap 12 7 11 Glu 78 41 409 BUN 16 14 21 Cr 0.88 0.58 0.95 Ca 8.6 6.0 8.0 PO4 -- 2.4 -- Date of last serum creatinine: 06/29/2025 Estimated Creatinine Clearance: 50.23 mL/min (by C-G formula based on SCr of 0.88 mg/dL). Estimated Glomerular Filtration Rate: 82.7 mL/min/1.73m2 (by CKD-EPI based on SCr of 0.88 mg/dL). Hepatic/Biliary/Pancreas 06/29/2025 4:34 AM T Prot 4.4 Albumin 2.2 D Bili 0.05 T Bili 0.2 Alk Phos 85 ALT <3 AST 13 C-Reactive Protein (mg/dL) Date Value 06/26/2025 8.9 (H) Sed Rate (ESR) (mm/Hr) Date Value 06/26/2025 37 (H) CULTURE results for blood, CSF, pyogen, sputum and urine that have been resulted. Does not include cultures that are in process nor other cultures. Blood Culture 06/28/2025 06/28/2025 06/26/2025 06/26/2025 06/24/2025 12:37 PM 5:58 AM 3:09 PM 3:00 PM 8:52 PM Blood Culture No growth to date, culture reincubated No growth to date, culture reincubated Positive Culture Report No growth to date, culture reincubated No Growth Anaerobic bottle yields Staphylococcus aureus Positive Culture Report Anaerobic bottle yields Staphylococcus aureus IMAGING STUDIES: Procedure date: 06/26/2025 9:36 AM Procedure type: Vascular Proc. sub type: Veins: Upper Extremities Veins, LIMITED DUPLEX VEIN SCAN UE. Physician Conclusions Summary: Simultaneous real time imaging of venous blood flow using both pulsed and color Doppler, as well asB-mode evaluation of the venous system with compression techniques, was used to evaluate the deep veins of the left upper extremity and internal jugular vein. The study demonstrates the following finding LEFT: There is no evidence of deep vein thrombosis/ superficial thrombophlebitis in the left upper extremity and internal jugular vein. Micro: 06/20 blood cultures - MSSA 06/24 blood cultures 1/4 bottles MSSA 06/26 blood cultures 1/4 bottles MSSA 06/28 blood cultures x2 NGTD ASSESSMENT/PLAN: 89-year-old man with a past medical history of HFrEF, CAD status post PCI, ICD, HTN, DM, CKD, status post pancreatectomy for IPMN, BPH s/p recent TURP, currently admitted with MSSA bacteremia suspected from urinary tract source in the setting of urinary retention with hydronephrosis status post Kimble catheter, MRI with evidence of T10 compression fracture and probable superimposed osteomyelitis. Persistent bacteremia concerning for possible cardiac device endocarditis. Patient is status post normal EGD on 06/29. Recommendations: -Continue cefazolin 2 g IV Q8H (day 6) and ertapenem 1 g IV Q24H (day 3) -Following repeat blood cultures -Await LINDA, if evidence of cardiac device involvement will need EP evaluation for consideration of explantation -ID continue to follow, anticipate need for prolonged IV antibiotic course at discharge. Plam discussed with attending Dr. Nick Baptiste MD Pager [phone] or by [facility] decision-making in this case included the following: I personally discussed management of the case or recommendations with primary team or another consulting team. * Diana Ferro RN - 06/29/2025 4:06 PM EST MD Waters aware of BG of 62 in pre op, MD Waters gave this RN a verbal order for 12.5 grams of D 50% (25 ML) IVP. * Vidal Helm MD - 06/29/2025 3:45 PM EST Images from the original note were not included. 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 * Vascular calcifications. * Postoperative changes noted in the peritoneal cavity. * Partially visualized ORIF changes of the right femoral head. * Generalized osteopenia. 06/28 XR T-spine: * Stable mild compression deformity involving the superior endplate of T10 similar to the previous study. * Stable degenerative changes. * Stable wedge deformity of T5 * Small bilateral pleural effusions. * Partially imaged pacemaker. Microbiology: Susceptibility data from last 90 days. Collected Specimen Info Organism Daptomycin Linezolid Oxacillin Trimethoprim + Sulfamethoxazole Vancomycin 06/26/25 Blood from Peripheral Stick Staphylococcus aureus 06/24/25 Blood from Peripheral Stick Staphylococcus aureus S S S S S Active antimicrobials: Cefazolin 2g every 8 hours Ertapenem (06/28-p) Vitals: Vitals: 06/29/25 1401 BP: 142/66 Pulse: 60 Resp: 18 Temp: 98.1 ??F (36.7 ??C) SpO2: 100% Physical Exam: General: Alert, awake and oriented Heart: Regular rythm, no murmurs Lungs: Clear to auscultation bilaterally Abdomen: soft, not distended nor tender Extremities: No lower extremity edema bilaterally Skin: No rashes noted Labs: CBC (last 3 years, up to 8 values) 06/29/2025 06/28/2025 06/27/2025 06/26/2025 06/24/2025 4:34 AM 1:35 AM 5:43 AM 4:10 AM 8:52 PM WBC 9.5 7.0 7.9 11.1 9.8 RBC 3.67 3.31 3.38 3.32 4.00 Hgb 9.8 8.8 9.1 8.7 10.4 Hct 29.6 26.6 27.1 26.8 32.0 MCV 81 80 80 81 80 RDW 15.9 15.3 15.3 15.6 15.9 Plt 518 463 435 421 425 BMP (last 3 years, up to 8 values) 06/29/2025 06/29/2025 06/28/2025 06/27/2025 06/26/2025 06/24/2025 11:46 AM 4:34 AM 1:35 AM 5:43 AM 4:10 AM 8:52 PM Na 137 141 133 134 135 132 K 4.4 3.1 4.6 4.2 4.2 4.8 Cl 104 116 103 103 105 103 CO2 25 21 24 22 22 21 Gap 12 7 11 13 12 13 Glu 78 41 409 280 115 330 BUN 16 14 21 22 24 25 Cr 0.88 0.58 0.95 0.92 0.96 1.15 Ca 8.6 6.0 8.0 8.1 8.1 8.0 eGFR 83 94 77 80 76 61 Assessment/ Plan: This is a 89 year old male with a PMHx of HFrEF s/p biventricular ICD, CAD s/p PCI (07/2023), HTN, HLD, T1DM 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 XR and CT thoracic/lumbar spine there did not show any acute process (report not available). Per chart review, CT A/P showed bilateral hydroureteronephrosis with urinary retention s/p kimble catheter placement. He was transferred here for fur ther evaluation with an MRI thoracic/lumbar spine (machine there not compatible with his ICD). New blood cultures are ordered and pending. TTE on 06/25 showed no gross vegetations but unable to exclude due intrinsic valve disease and cardiac electrical lead. LINDA pending. Unclear where got his MSSA from; could be secondary to his recent TURP procedure. Blood cxs still positive on 06/24 and 06/26; new blood cxs pending. Currently on Cefazolin; Ertapenem added given persistent bacteremia. MRI T/L spine showed an acute/subacute compression fracture of T10 (superimposed osteomyelitis cannot be excluded). Impression: # Persistent MSSA bacteremia # Significant lower back pain following fall # HFrEF with ICD in place # MRIs T/L spine with concerns for osteomyelitis Recommendations: - Continue IV cefazolin 2g IV every 8 hours - Continue IV Ertapenem 1g every 24 hours - Will follow up on blood cultures (pending) - Await LINDA to further evaluate for endocarditis (including involvement of cardiac device) - Await results of left UE vascular ultrasound - ID will continue to follow Findings and recommendations discussed with the primary team and Infectious Disease Attending Dr. Emile Steele MD PGY-IV Infectious Disease Fellow Cosigned by Jacqueline Baptiste MD at 06/29/2025 6:19 PM EST Associated attestation - Jacqueline Baptiste MD - 06/29/2025 6:19 PM EST Images from the original note were not included. Teaching Physician Note: I saw and evaluated the patient. I personally obtained the smyth and critical portions of the historyand physical exam. I reviewed the fellow's documentation and discussed the patient with the fellow.I agree with the fellow's medical decision making as documented in the fellow's note. Jacqueline Baptiste MD Pager [phone] or by [facility] * Maribel Romero MD - 06/29/2025 12:19 PM EST Hospital Medicine Progress Note Manolo Roche Age [age] year old male [id number] Admitted 06/24/2025 5:46 PM Hospital Day: 6 Subjective HOSPITAL COURSE: Sweet dual chamber ICD in May [address] Root. INTERVAL HPI: Reporting pain controlled this AM. Consented for blood products Objective PHYSICAL EXAM: BP 153/67 (BP Location: right arm) Pulse 59 Temp 97.9 ??F (36.6 ??C) (Oral) Resp 18 Ht 5' 10 (1.778 m) Wt 135 lb (61.2 kg) SpO2 99% BMI 19.37 kg/m?? General: nad HEENT: MMM Cv: S1; S2; normal rate; normal rhythm; no murmurs, rubs, or gallops Pulmy: ctab Abdomen: Soft; non-tender; non-distended; normal bowel sounds; no guarding or RBT Back: Lower Paraspinal/midline tenderness in the lumbar region; bilateral positive straight leg raise; no CVA tenderness Extremities: LUE 1+ edema; pulses intact and symmetrical Neuro: Alert; oriented x3; conversational; CN 2-12 grossly intact; normal strength in all extremities; normal sensation; no focal deficit; no saddle anesthesia Skin: Warm; dry; no obvious rash DATA select: Labwork is notable for inr 2.7 coagulopathy, hypoglycemia 53, Order for tomorrow: Labwork coag, cbc Assessment & Plan MSSA bacteremia Presence of implantable cardioverter-defibrillator (ICD) Acute midline low back pain without sciatica Postoperative urinary retention S/P TURP (transurethral resection of prostate) 89 y/o M with PMH of HFrEF s/p biventricular ICD, CAD s/p PCI, CKD3, and BPH s/p recent TURP admitted with MSSA bacteremia, most likely related to recent genitourinary instrumentation. This is occurring in the setting of subacute back pain and presence of an implantable cardiac device, both of which raise concern for deep-seated infection, such as vertebral osteomyelitis, discitis, and ICD-associated infection. Transferred to [facility] for advanced imaging and definitive source evaluation. Arrives having already received 2 full days of appropriate antibiotic coverage. - admit to - consulting ID given MSSA + ICD + possible OM/discitis - TTE on admission negative for endocarditis - EP approve ICD compatibility for MRI - continue cefazolin - ID consulted rec c/w cefazolin, repeat Bcx2 due to minimal draw on admission, linda plan for 06/28 deferred to evaluate EGD prior - MRI T/L spine 06/27 showing T10 compression with possible osteomyelitis , Lumbar OM - Spine ortho consulted, rec standing T/L-spine xray - Bcx2 06/24 1 GPC - Repeat Bcx2 06/26 07/13 GPC - Repeat Bcx2 06/28 pending - oxy 5/oxy 7.5 mod/severe pain, dilaudid 0.2 for breakthrough - GI consulted for LINDA clearance and worsening anemia given hx of gastric ulcer/barrotts esophagus,plan for EGD 06/29 pending reversal of INR to goal 1.5 - LINDA tentatively planned for wednesday Type 1 diabetes mellitus with hyperglycemia (HCC) History of pancreatectomy 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 Follows with endocrinology at [facility]. - uncontrolled; A1C 12.8% in 04/2025 - lantus 8 units at bedtime while npo - lispro sliding scale insulin TID AC - glucose checks TID AC + HS - hypoglycemia protocol - carb controlled diet HFrEF (heart failure with reduced ejection fraction) CAD (coronary artery disease) Essential hypertension Hyperlipidemia - stable; no active chest pain; no signs of volume overload - continue home ASA 81 mg daily - continue home atorvastatin 40 mg HS - continue home losartan 25 mg daily - continue home toprol 12.5 mg HS - continue home spironolactone 25 mg daily Stage 3 chronic kidney disease (HCC) - initially presented to [facility] with an DENISHA (Scr 1.7); since resolved - Scr of 1.15 on presentation here - renally dose medications Anemia Hgb 10.4 on admission -> 8.8 No active signs of bleeding Iron 19 iron sat 8% hemolysis labs negative b12, folate wnl - iron supplement outpatient after infection resolves - GI consulted, plan for EGD prior to LINDA Left arm swelling LUE DVT US pending r/o dvt Likely 2/2 infiltrated IV at OSH Improving with elevation DVT PPX: lovenox CODE: DNR Comfort Care Arrest (Do Not Intubate Prior to Arrest) DISPO: Maribel Romero MD * Maribel Romero MD - 06/28/2025 1:43 PM EST Hospital Medicine Progress Note Manolo Roche Age [age] year old male [id number] Admitted 06/24/2025 5:46 PM Hospital Day: 5 Subjective HOSPITAL COURSE: Sweet dual chamber ICD in May [address] Root. INTERVAL HPI: NAEO. Pain slightly better controlled Objective PHYSICAL EXAM: BP 134/69 (BP Location: right arm) Pulse 64 Temp 97.8 ??F (36.6 ??C) (Oral) Resp 18 Ht 5' 10 (1.778 m) Wt 135 lb (61.2 kg) SpO2 98% BMI 19.37 kg/m?? General: nad HEENT: MMM Cv: S1; S2; normal rate; normal rhythm; no murmurs, rubs, or gallops Pulmy: ctab Abdomen: Soft; non-tender; non-distended; normal bowel sounds; no guarding or RBT Back: Lower Paraspinal/midline tenderness in the lumbar region; bilateral positive straight leg raise; no CVA tenderness Extremities: LUE 1+ edema; pulses intact and symmetrical Neuro: Alert; oriented x3; conversational; CN 2-12 grossly intact; normal strength in all extremities; normal sensation; no focal deficit; no saddle anesthesia Skin: Warm; dry; no obvious rash DATA select: Labwork is notable for OMARI stable, bg [phone] Order for tomorrow: Labwork cbc, bmp, inr Assessment & Plan MSSA bacteremia Presence of implantable cardioverter-defibrillator (ICD) Acute midline low back pain without sciatica Postoperative urinary retention S/P TURP (transurethral resection of prostate) 89 y/o M with PMH of HFrEF s/p biventricular ICD, CAD s/p PCI, CKD3, and BPH s/p recent TURP admitted with MSSA bacteremia, most likely related to recent genitourinary instrumentation. This is occurring in the setting of subacute back pain and presence of an implantable cardiac device, both of which raise concern for deep-seated infection, such as vertebral osteomyelitis, discitis, and ICD-associated infection. Transferred to [facility] for advanced imaging and definitive source evaluation. Arrives having already received 2 full days of appropriate antibiotic coverage. - admit to - consulting ID given MSSA + ICD + possible OM/discitis - TTE on admission negative for endocarditis - EP approve ICD compatibility for MRI - continue cefazolin - ID consulted rec c/w cefazolin, repeat Bcx2 due to minimal draw on admission, linda plan for 06/28 deferred to evaluate EGD prior - MRI T/L spine 06/27 showing T10 compression with possible osteomyelitis , Lumbar OM - Spine ortho consulted, rec standing T/L-spine xray - Bcx2 06/24 1 GPC - Repeat Bcx2 06/26 12 GPC - Repeat Bcx2 06/28 pending - oxy 5/oxy 7.5 mod/severe pain, dilaudid 0.2 for breakthrough Type 1 diabetes mellitus with hyperglycemia (HCC) History of pancreatectomy 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 Follows with endocrinology at [facility]. - uncontrolled; A1C 12.8% in 04/2025 - lantus 15 units HS - lispro sliding scale insulin TID AC - glucose checks TID AC + HS - hypoglycemia protocol - carb controlled diet HFrEF (heart failure with reduced ejection fraction) CAD (coronary artery disease) Essential hypertension Hyperlipidemia - stable; no active chest pain; no signs of volume overload - continue home ASA 81 mg daily - continue home atorvastatin 40 mg HS - continue home losartan 25 mg daily - continue home toprol 12.5 mg HS - continue home spironolactone 25 mg daily Stage 3 chronic kidney disease (HCC) - initially presented to [facility] with an DENISHA (Scr 1.7); since resolved - Scr of 1.15 on presentation here - renally dose medications Anemia Hgb 10.4 on admission -> 8.8 No active signs of bleeding Iron 19 iron sat 8% hemolysis labs negative b12, folate wnl - iron supplement outpatient after infection resolves - GI consulted, plan for EGD prior to LINDA Left arm swelling LUE DVT US pending r/o dvt Time-based billing justifications: Reviewing (chart, labs, and other clinical notes) Obtaining history (or reviewing separately obtained history) Patient visit (including performing a medically appropriate exam) Counseling/educating the patient/family/caregiver Ordering (medications, tests, procedures - including independent interpretation of results when notreported separately) Charting in Epic DVT PPX: lovenox CODE: DNR Comfort Care Arrest (Do Not Intubate Prior to Arrest) DISPO: Maribel Romero MD * Vidal Helm MD - 06/28/2025 11:34 AM EST Images from the original note were not included. ID Follow up Interval history: - Patient seen and examined at bedside - Afebrile, doing okay with no new complaints - Blood cxs still positive on 06/24 and 06/26; new blood cxs pending - MRI T/L spine was done yesterday; report below - Left UE vascular ultrasound still pending New imagin/17 MRI T spine with and without contrast: Limited exam. 1. Acute/subacute compression fracture of T10 with associated marrow edema and enhancement extending into the inferior endplate of T9. Superimposed osteomyelitis cannot be excluded given the concurrent bacteremia. 2. Thin signal abnormality throughout the dorsal epidural space. This may relate to normal epidurallipomatosis with incomplete fat saturation or superimposed edema within the epidural fat. Epidural hematoma or an epidural collection is a less likely possibility. Correlate with CT. 06/27 MRI L-spine with and without contrast: Severely limited suboptimal study. 1. Diffuse enhancement and marrow edema within the S1 sacral segment extending into the sacral ala and minimally S2 segment. Differential includes osteomyelitis or edema and enhancement from a fracture. Metastasis is felt less likely. Correlate with CT. 2. Mild nonspecific enhancement within L5. 3. Small structure in the ventral epidural space at L5. This may relate to inflammation surroundingepidural fat and the venous plexus. An epidural abscess is felt less likely Microbiology: 12/10 Blood cx MSSA in OSH (partial documentation available) 06/20 Urine cx MSSA in OSH (partial documentation available) 06/24 Blood cxs MSSA (1/2 bottles) 06/26 Blood cx GPCs in clusters (12 bottles) Active antimicrobials: Cefazolin 2g every 8 hours Vitals: Vitals: 06/28/25 0947 BP: 134/69 Pulse: 64 Resp: 18 Temp: 97.8 ??F (36.6 ??C) SpO2: 98% Physical Exam: General: Alert, awake and oriented Heart: Regular rythm, no murmurs Lungs: Clear to auscultation bilaterally Abdomen: soft, not distended nor tender Extremities: No lower extremity edema bilaterally LUE still slightly edematous but less swollen on exam today Labs: CBC (last 3 years, up to 8 values) 06/28/2025 06/27/2025 06/26/2025 06/24/2025 1:35 AM 5:43 AM 4:10 AM 8:52 PM WBC 7.0 7.9 11.1 9.8 RBC 3.31 3.38 3.32 4.00 Hgb 8.8 9.1 8.7 10.4 Hct 26.6 27.1 26.8 32.0 MCV 80 80 81 80 RDW 15.3 15.3 15.6 15.9 Plt 463 435 421 425 BMP (last 3 years, up to 8 values) 06/28/2025 06/27/2025 06/26/2025 06/24/2025 1:35 AM 5:43 AM 4:10 AM 8:52 PM Na 133 134 135 132 K 4.6 4.2 4.2 4.8 Cl 103 103 105 103 CO2 24 22 22 21 Gap 11 13 12 13 Glu 409 280 115 330 BUN 21 22 24 25 Cr 0.95 0.92 0.96 1.15 Ca 8.0 8.1 8.1 8.0 eGFR 77 80 76 61 Assessment/ Plan: This is a 89 year old male with a PMHx of HFrEF s/p biventricular ICD, CAD s/p PCI (07/2023), HTN, HLD, T1DM 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 XR and CT thoracic/lumbar spine there did not show any acute process (report not available). Per chart review, CT A/P showed bilateral hydroureteronephrosis with urinary retention s/p kimble catheter placement. He was transferred here for fur ther evaluation with an MRI thoracic/lumbar spine (machine there not compatible with his ICD). New blood cultures are ordered and pending. TTE on 06/25 showed no gross vegetations but unable to exclude due intrinsic valve disease and cardiac electrical lead. Unclear where got his MSSA from; could be secondary to his recent TURP procedure. He is persistently bacteremic now (Blood cxs still positive on 06/24 and 06/26; new blood cxs pending). We would keephim on Cefazolin and also add Ertapenem for synergistic effect. MRI T/L spine showed an acute/subacute compression fracture of T10 with associated marrow edema and enhancement extending into the inferior endplate of T9 (superimposed osteomyelitis cannot be excluded), along with diffuse enhancement and marrow edema within the S1 sacral segment extending into the sacral ala and minimally S2 segment. Impression: # Persistent MSSA bacteremia # Significant lower back pain following fall # HFrEF with ICD in place # MRIs T/L spine with concerns for osteomyelitis Recommendations: - Continue IV cefazolin 2g IV every 8 hours - Please add IV Ertapenem given persistent bacteremia - Please take an additional blood culture today (only one was taken) - He will need 2 sets of blood cultures every 48 hours to document clearance - Await LINDA to further evaluate for endocarditis (including involvement of cardiac device) - Await results of left UE vascular ultrasound - We recommend neurosurgery evaluation given MRI findings - ID will continue to follow Findings and recommendations discussed with the primary team and Infectious Disease Attending Dr. Emile Steele MD PGY-IV Infectious Disease Fellow Cosigned by Jacqueline Baptiste MD at 06/28/2025 2:13 PM EST Associated attestation - Jacqueline Baptiste MD - 06/28/2025 2:13 PM EST Images from the original note were not included. Patient reports on patient reports ongoing back pain although seems better controlled. Recommend continue cefazolin, given ongoing bacteremia add ertapenem 1 g IV Q24H for synergy. Recommend spine surgery consult given MRI findings. Following repeat blood cultures, await LINDA. ID will continue to follow. Teaching Physician Note: I saw and evaluated the patient. I personally obtained the smyth and critical portions of the historyand physical exam. I reviewed the fellow's documentation and discussed the patient with the fellow.I agree with the fellow's medical decision making as documented in the fellow's note. Jacqueline Baptiste MD Pager [phone] or by [employer] chat * Lady Thomas RN - 06/28/2025 5:07 AM EST 06/26 Blood cultures positive in anerobic bottle for gram positive coccxy in clusters, DR Glenys peng. * Arnold Amaral RN - 06/27/2025 2:52 PM EST Patient was identified by name and date of . Arnold Amaral RN Pre/Post MRI DEVICE CLINIC INTERROGATION Device Type: Kee Esteves DR Dual Chamber ICD implanted on 05/24/[address] Root at [facility]. Lead Status: Sweet RA and RV leads implanted on 05/24/[address] Root at [facility]. Device Indication: VT BATTERY VOLTAGE: 7.7-8.2 years estimated battery remaining CHARGE TIME: 9.5 Sec INTRINSIC RHYTHM: NSR PERCENT PACING: A paced 51%, V paced <1% COMMENTS: Pre and post MRI device checks are WNL, no episodes noted during scan. Patient returned to original settings with no cardiac complaints, he is c/o back pain (reason for MRI) and need to usebathroom. Cardiology Check List for MRI Conditional Devices RA RV LV Pre-MRI Post-MRI Pre-MRI Post-MRI Pre-MRI Post-MRI Sensing (MV) 3.1 mV 2.9 mV >12 mV >12 mV -- -- Capture Threshold (V @ __ms) 0.5 V @ 0.5 ms 0.5 V @ 0.5 ms 0.75 V @ 0.5 ms 0.75 V @ 0.5 ms -- -- Impedance 360 380 Pace 430 Shock 48 Pace 430 Shock 51 -- -- Cosigned by Gm Bullock DO at 06/28/2025 12:20 PM EST * Maribel Romero MD - 06/27/2025 12:50 PM EST Hospital Medicine Progress Note Manolo Roche Age [age] year old male [id number] Admitted 06/24/2025 5:46 PM Hospital Day: 4 Subjective HOSPITAL COURSE: Sweet dual chamber ICD in May [address] Root. INTERVAL HPI: NAEO. States he was able to sleep more comfortably overnight. Still in a lot of pain Objective PHYSICAL EXAM: BP (P) 150/93 Pulse (P) 78 Temp 98 ??F (36.7 ??C) (Oral) Resp 16 Ht 5' 10 (1.778 m) Wt 135 lb (61.2 kg) SpO2 (P) 95% BMI 19.37 kg/m?? General: nad HEENT: MMM Cv: S1; S2; normal rate; normal rhythm; no murmurs, rubs, or gallops Pulmy: ctab Abdomen: Soft; non-tender; non-distended; normal bowel sounds; no guarding or RBT Back: Lower Paraspinal/midline tenderness in the lumbar region; bilateral positive straight leg raise; no CVA tenderness Extremities: LUE 1+ edema; pulses intact and symmetrical Neuro: Alert; oriented x3; conversational; CN 2-12 grossly intact; normal strength in all extremities; normal sensation; no focal deficit; no saddle anesthesia Skin: Warm; dry; no obvious rash DATA select: Labwork is notable for hyperglycemia glucose 256-280, hgb stable anemia 9.1 Iron 19 Order for tomorrow: Labwork bmp, cbc Assessment & Plan MSSA bacteremia Presence of implantable cardioverter-defibrillator (ICD) Acute midline low back pain without sciatica Postoperative urinary retention S/P TURP (transurethral resection of prostate) 89 y/o M with PMH of HFrEF s/p biventricular ICD, CAD s/p PCI, CKD3, and BPH s/p recent TURP admitted with MSSA bacteremia, most likely related to recent genitourinary instrumentation. This is occurring in the setting of subacute back pain and presence of an implantable cardiac device, both of which raise concern for deep-seated infection, such as vertebral osteomyelitis, discitis, and ICD-associated infection. Transferred to [facility] for advanced imaging and definitive source evaluation. Arrives having already received 2 full days of appropriate antibiotic coverage. 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 Follows with endocrinology at [facility]. - uncontrolled; A1C 12.8% in 04/2025 - lantus 15 units HS - lispro sliding scale insulin TID AC - glucose checks TID AC + HS - hypoglycemia protocol - carb controlled diet HFrEF (heart failure with reduced ejection fraction) CAD (coronary artery disease) Essential hypertension Hyperlipidemia - stable; no active chest pain; no signs of volume overload - continue home ASA 81 mg daily - continue home atorvastatin 40 mg HS - continue home losartan 25 mg daily - continue home toprol 12.5 mg HS - continue home spironolactone 25 mg daily Stage 3 chronic kidney disease (HCC) - initially presented to [facility] with an DENISHA (Scr 1.7); since resolved - Scr of 1.15 on presentation here - renally dose medications Anemia Hgb 10.4 on admission No active signs of bleeding Iron 19 iron sat 8% hemolysis labs negative b12, folate wnl - iron supplement outpatient after infection resolves Left arm swelling LUE DVT US pending r/o dvt Time-based billing justifications: Reviewing (chart, labs, and other clinical notes) Obtaining history (or reviewing separately obtained history) Patient visit (including performing a medically appropriate exam) Counseling/educating the patient/family/caregiver Ordering (medications, tests, procedures - including independent interpretation of results when notreported separately) Charting in Epic DVT PPX: lovenox CODE: DNR Comfort Care Arrest (Do Not Intubate Prior to Arrest) DISPO: Maribel Romero MD * Jacqueline Baptiste MD - 06/27/2025 10:45 AM EST Images from the original note were not included. ID FOLLOW UP INTERVAL HISTORY: Patient reports still with significant back pain but overall better controlled than previous and was able to get some sleep overnight. Tolerating antibiotics without nausea or diarrhea. No fever in the last 24 hours. Still awaiting MRI PHYSICAL EXAMINATION: Patient Vitals for the past 24 hrs: BP Temp Temp src Pulse Resp SpO2 O2 Device 06/27/25 1015 -- -- -- -- -- -- Room air 06/27/25 0733 -- -- -- -- -- -- Room air 06/27/25 0537 159/77 98 ??F (36.7 ??C) Oral 61 18 99 % Room air 06/26/25 2120 137/73 98 ??F (36.7 ??C) Oral 60 18 99 % Room air 06/26/25 1805 149/68 97.6 ??F (36.4 ??C) Oral 59 -- 97 % Room air 06/26/25 1352 148/106 98.3 ??F (36.8 ??C) Oral 61 -- 95 % Room air Tmax (24 hours): 98.3 ??F (36.8 ??C) Constitutional: No acute distress, awake and alert, on room air Eyes: No icterus or injection Ears, nose, mouth, throat: No oral lesions Cardiovascular: RRR, no murmur, well healed left chest ICD Respiratory: Clear to auscultation bilaterally Gastrointestinal: Abdomen soft, no-tender, non-distended Genitourinary: Kimble catheter in place draining clear urine Musculoskeletal: No elicitable spine tenderness to palpation Integumentary: No skin rash Extremities: Decreased LUE forearm edema, no erythema, tenderness or fluctuance noted Neurologic: No focal neurologic deficits appreciated MEDS: senna, 8.6 mg, Oral, BID insulin glargine, 10 Units, Subcutaneous, At Bedtime [id number], 24,000 Units, Oral, 3x Daily with Meals polyethylene glycol, 17 g, Oral, Daily losartan, 25 mg, Oral, Daily spironolactone, 25 mg, Oral, Daily ceFAZolin, 2,000 mg, Intravenous, Q8H Antibiotic lidocaine, 1 Patch, Transdermal, Every 24 hours ferrous sulfate, 325 mg, Oral, 2x Daily AC insulin lispro, 1-6 Units, Subcutaneous, 3x Daily AC PARoxetine, 40 mg, Oral, Daily atorvastatin, 40 mg, Oral, At Bedtime aspirin EC, 81 mg, Oral, Daily tamsulosin, 0.4 mg, Oral, Daily metoprolol, 12.5 mg, Oral, At Bedtime acetaminophen, 1,000 mg, Oral, 3x Daily enoxaparin, 40 mg, Subcutaneous, Daily DATA: CBC/PT/INR 06/27/2025 06/26/2025 06/24/2025 5:43 AM 4:10 AM 8:52 PM WBC 7.9 11.1 9.8 RBC 3.38 3.32 4.00 Hgb 9.1 8.7 10.4 Hct 27.1 26.8 32.0 MCV 80 81 80 RDW 15.3 15.6 15.9 Plt 435 421 425 WBC/Diff 06/27/2025 06/26/2025 06/24/2025 5:43 AM 4:10 AM 8:52 PM Neutro% 74.6 86.0 80.0 Lymphs% 10.9 7.0 10.1 Monos% 12.3 6.0 7.2 Eos% 1.7 -- 1.4 Basos% 0.6 -- 1.4 Basic Metabolic Panel 06/27/2025 06/26/2025 06/24/2025 5:43 AM 4:10 AM 8:52 PM Na 134 135 132 K 4.2 4.2 4.8 Cl 103 105 103 CO2 22 22 21 Gap 13 12 13 Glu 280 115 330 BUN 22 24 25 Cr 0.92 0.96 1.15 Ca 8.1 8.1 8.0 Date of last serum creatinine: 06/27/2025 Estimated Creatinine Clearance: 48.04 mL/min (by C-G formula based on SCr of 0.92 mg/dL). Estimated Glomerular Filtration Rate: 80 mL/min/1.73m2 (by CKD-EPI based on SCr of 0.92 mg/dL). Hepatic/Biliary/Pancreas No lab values to display. C-Reactive Protein (mg/dL) Date Value 06/26/2025 8.9 (H) Sed Rate (ESR) (mm/Hr) Date Value 06/26/2025 37 (H) CULTURE results for blood, CSF, pyogen, sputum and urine that have been resulted. Does not include cultures that are in process nor other cultures. Blood Culture 06/24/2025 8:52 PM Blood Culture No growth to date, culture reincubated Positive Culture Report Anaerobic bottle yields Staphylococcus aureus IMAGING STUDIES: No new results from last visit. Micro: 06/20 blood cultures - MSSA 06/24 blood cultures 1/4 bottles MSSA 06/26 blood cultures x 2 collected ASSESSMENT/PLAN: Patient is an 89-year-old man with a past medical history of HFrEF, CAD status post PCI, ICD, HTN, DM, CKD, status post pancreatectomy for IPMN, BPH s/p recent TURP, currently admitted with MSSA bacteremia suspected from urinary tract source in the setting of urinary retention with hydronephrosis status post Kimble catheter, concern for spine infection given back pain. Persistent bacteremia concerning for possible cardiac device endocarditis. Recommendations: -Continue cefazolin 2g IV Q8H (day 3). Anticipate need for prolonged IV antibiotic course at discharge -Following repeat blood cultures, would repeat 2 sets again in AM on 06/28 -Await MRI T/L spine, consider spine surgery consult based on results -Given ongoing bacteremia recommend LINDA to further evaluate for endocarditis (including involvementof cardiac device) -Await results of LUE vascular ultrasound -Pain control as per primary medical service -ID will continue to follow, plan of care discussed with attending Dr. Nick Baptiste MD Pager [phone] or by [employer] [facility] decision-making in this case included the following: I personally discussed management of the case or recommendations with primary team or another consulting team. * Doreen Griffith LISW - 06/26/2025 1:31 PM EST SW aware of possible home going IV antibiotic need. Met with pt and pt's at bedside. Pt and prefer to return home at dc; pt's will be able to assist as needed. Should IV antibiotics be indicated, SW will pass to JUSTIN Samson LISW-S [phone] * Maribel Romero MD - 06/26/2025 1:19 PM EST Hospital Medicine Progress Note Manolo Roche Age [age] year old male [id number] AC8-510/1 Admitted 06/24/2025 5:46 PM Hospital Day: 3 Subjective HOSPITAL COURSE: Sweet dual chamber ICD in May [address] Root. INTERVAL HPI: NAEO. Pt states back pain feels worse today states he was unable to get comfortable overnight. Reporting chills, denies any fevers Objective PHYSICAL EXAM: BP 159/76 (BP Location: left arm) Pulse 65 Temp 98 ??F (36.7 ??C) (Oral) Resp 18 Ht 5' 10 (1.778 m) Wt 135 lb (61.2 kg) SpO2 98% BMI 19.37 kg/m?? General: nad HEENT: MMM Cv: S1; S2; normal rate; normal rhythm; no murmurs, rubs, or gallops Pulmy: ctab Abdomen: Soft; non-tender; non-distended; normal bowel sounds; no guarding or RBT Back: Lower Paraspinal/midline tenderness in the lumbar region; bilateral positive straight leg raise; no CVA tenderness Extremities: No pitting edema; pulses intact and symmetrical Neuro: Alert; oriented x3; conversational; CN 2-12 grossly intact; normal strength in all extremities; normal sensation; no focal deficit; no saddle anesthesia Skin: Warm; dry; no obvious rash DATA select: Labwork is notable for anemia downtrending, esr 37, Order for tomorrow: Labwork esr, crp, cbc, bmp Assessment & Plan MSSA bacteremia Presence of implantable cardioverter-defibrillator (ICD) Acute midline low back pain without sciatica Postoperative urinary retention S/P TURP (transurethral resection of prostate) 89 y/o M with PMH of HFrEF s/p biventricular ICD, CAD s/p PCI, CKD3, and BPH s/p recent TURP admitted with MSSA bacteremia, most likely related to recent genitourinary instrumentation. This is occurring in the setting of subacute back pain and presence of an implantable cardiac device, both of which raise concern for deep-seated infection, such as vertebral osteomyelitis, discitis, and ICD-associated infection. Transferred to [facility] for advanced imaging and definitive source evaluation. Arrives having already received 2 full days of appropriate antibiotic coverage. - admit to 8E - consulting ID given MSSA + ICD + possible OM/discitis - repeat blood cultures drawn on 06/24 - obtain TTE; will likely need LINDA unless goals of care change - needs MRI thoracic/lumbar spine; must confirm make/model of biventricular ICD first, however unable to locate details in OSH records, patient contacting to bring in ICD paperwork from home - continue cefazolin - ID consulted rec c/w cefazolin, repeat Bcx2 due to minimal draw on admission, possible linda, MRI T/L spine, spine orth - Spine ortho consulted, pending MRI T/L spine - Bcx2 - Repeat Bcx2 06/26 Type 1 diabetes mellitus with hyperglycemia (HCC) History of pancreatectomy 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 Follows with endocrinology at [facility]. - uncontrolled; A1C 12.8% in 04/2025 - lantus 15 units HS - lispro sliding scale insulin TID AC - glucose checks TID AC + HS - hypoglycemia protocol - carb controlled diet HFrEF (heart failure with reduced ejection fraction) CAD (coronary artery disease) Essential hypertension Hyperlipidemia - stable; no active chest pain; no signs of volume overload - continue home ASA 81 mg daily - continue home atorvastatin 40 mg HS - continue home losartan 25 mg daily - continue home toprol 12.5 mg HS - continue home spironolactone 25 mg daily Stage 3 chronic kidney disease (HCC) - initially presented to [facility] with an DENISHA (Scr 1.7); since resolved - Scr of 1.15 on presentation here - renally dose medications Anemia Hgb 10.4 on admission No active signs of bleeding -check iron studies -check hemolysis labs -b12, folate Left arm swelling LUE DVT US r/o dvt Time-based billing justifications: Reviewing (chart, labs, and other clinical notes) Obtaining history (or reviewing separately obtained history) Patient visit (including performing a medically appropriate exam) Counseling/educating the patient/family/caregiver Ordering (medications, tests, procedures - including independent interpretation of results when notreported separately) Charting in Epic DVT PPX: lovenox CODE: DNR Comfort Care Arrest (Do Not Intubate Prior to Arrest) DISPO: Maribel Romero MD * Jacqueline Baptiste MD - 06/26/2025 12:32 PM EST Images from the original note were not included. ID FOLLOW UP INTERVAL HISTORY: Patient seen earlier this AM, he notes ongoing lower back pain and unable to get comfortable. No fevers PHYSICAL EXAMINATION: Patient Vitals for the past 24 hrs: BP Temp Temp src Pulse Resp SpO2 O2 Device 06/26/25 0754 -- -- -- -- -- -- Room air 06/26/25 0627 159/76 98 ??F (36.7 ??C) Oral 65 18 98 % Room air 06/25/25 2205 127/80 97.5 ??F (36.4 ??C) Temporal 58 18 97 % -- 06/25/25 1353 147/73 97.9 ??F (36.6 ??C) Oral 56 18 100 % Room air Tmax (24 hours): 98 ??F (36.7 ??C) Constitutional: No acute distress but uncomfortable, awake and alert, on room air Eyes: No icterus or injection Ears, nose, mouth, throat: No oral lesions Cardiovascular: RRR, no murmur, well healed left chest ICD Respiratory: Clear to auscultation bilaterally Gastrointestinal: Abdomen soft, no-tender, non-distended Genitourinary: Kimble catheter in place draining clear urine Musculoskeletal: No elicitable spine tenderness to palpation Integumentary: No skin rash Neurologic: No focal neurologic deficits appreciated MEDS: senna, 8.6 mg, Oral, BID insulin glargine, 10 Units, Subcutaneous, At Bedtime [id number], 24,000 Units, Oral, 3x Daily with Meals polyethylene glycol, 17 g, Oral, Daily losartan, 25 mg, Oral, Daily spironolactone, 25 mg, Oral, Daily ceFAZolin, 2,000 mg, Intravenous, Q8H Antibiotic lidocaine, 1 Patch, Transdermal, Every 24 hours ferrous sulfate, 325 mg, Oral, 2x Daily AC insulin lispro, 1-6 Units, Subcutaneous, 3x Daily AC PARoxetine, 40 mg, Oral, Daily atorvastatin, 40 mg, Oral, At Bedtime aspirin EC, 81 mg, Oral, Daily tamsulosin, 0.4 mg, Oral, Daily metoprolol, 12.5 mg, Oral, At Bedtime acetaminophen, 1,000 mg, Oral, 3x Daily enoxaparin, 40 mg, Subcutaneous, Daily DATA: CBC/PT/INR 06/26/2025 06/24/2025 4:10 AM 8:52 PM WBC 11.1 9.8 RBC 3.32 4.00 Hgb 8.7 10.4 Hct 26.8 32.0 MCV 81 80 RDW 15.6 15.9 Plt 421 425 WBC/Diff 06/26/2025 06/24/2025 4:10 AM 8:52 PM Neutro% 86.0 80.0 Lymphs% 7.0 10.1 Monos% 6.0 7.2 Eos% -- 1.4 Basos% -- 1.4 Basic Metabolic Panel 06/26/2025 06/24/2025 4:10 AM 8:52 PM Na 135 132 K 4.2 4.8 Cl 105 103 CO2 22 21 Gap 12 13 Glu 115 330 BUN 24 25 Cr 0.96 1.15 Ca 8.1 8.0 Date of last serum creatinine: 06/26/2025 Estimated Creatinine Clearance: 46.04 mL/min (by C-G formula based on SCr of 0.96 mg/dL). Estimated Glomerular Filtration Rate: 76 mL/min/1.73m2 (by CKD-EPI based on SCr of 0.96 mg/dL). Hepatic/Biliary/Pancreas No lab values to display. No results found for: CRP No results found for: ESR CULTURE results for blood, CSF, pyogen, sputum and urine that have been resulted. Does not include cultures that are in process nor other cultures. Blood Culture 06/24/2025 8:52 PM Blood Culture No growth to date, culture reincubated No growth to date, culture reincubated IMAGING STUDIES: FINDINGS: Position and projection: AP erect. Limitations: None. Clinical considerations: Obtained from EMR. Lines, tubes, and devices: Left chest implanted dual-chamber AICD device with its lead terminating overlying the regions of the right atrial appendage and right ventricle. Intact AICD leads which make contact with its generator terminals. Cardiomediastinal silhouette: Upper limits normal heart size. Aorta: Atherosclerotic calcification. Lungs and pleura: Left basilar pulmonary patchy airspace opacities/atelectasis and mild right basilar pulmonary subsegmental atelectasis. No sizable pleural effusion or pneumothorax. Osseous structures: Unremarkable. Chest and abdominal wall: Unremarkable. Included upper abdomen: Right upper quadrant surgical clips, likely related to a cholecystectomy. IMPRESSION: 1. Dual-chamber AICD device with satisfactory positions of its leads. 2. Left basilar pulmonary patchy airspace opacities/atelectasis and mild right basilar pulmonary subsegmental atelectasis. Pneumonia should be excluded clinically. ASSESSMENT/PLAN: Patient is an 89-year-old man with a past medical history of HFrEF, CAD status post PCI, ICD, HTN, DM, CKD, status post pancreatectomy for IPMN, BPH s/p recent TURP, currently admitted with MSSA bacteremia suspected from urinary tract source in the setting of urinary retention with hydronephrosis status post Kimble catheter, concern for spine infection given back pain. Recommendations: -Continue cefazolin 2g IV Q8H (day 2) -Following repeat blood cultures, recommend repeat blood cultures x2 (given inadequate volume of 06/24 blood cultures) -Await MRI T/L spine today, consider spine surgery consult based on results -If ongoing bacteremia will need LINDA to further evaluate for endocarditis (including involvement ofcardiac device) -Pain control as per primary medical service -ID will continue to follow, plan of care discussed with attending Dr. Nick Baptiste MD Pager [phone] or by [employer] [facility] decision-making in this case included the following: I personally discussed management of the case or recommendations with primary team or another consulting team. * Porter Reynoso RN - 06/25/2025 2:43 PM EST Patient was identified by name and date of . Porter Reynoso RN CONSULT DEVICE CLINIC INTERROGATION for MRI CLEARANCE Device Type: Kee Esteves DR Dual Chamber ICD implanted on 05/24/[address] Root at [facility]. Lead Status: Sweet RA and RV leads implanted on 05/24/[address] Root at [facility]. Device Indication: VT BATTERY VOLTAGE: 7.3-8.2 Years CHARGE TIME: 9.5 Sec LEAD IMPEDANCE: Atrium: 360 Ohms Ventricle: 410 Ohms HV: 51 Ohms PACING THRESHOLD: Atrium : 0.5v @ 0.5ms Ventricle: 0.75v @ 0.5ms SENSING THRESHOLD: P-Wave: 3.1 mV R-Wave: >12.0 mV INTRINSIC RHYTHM: NSR PERCENT PACING: A-pacin%, V-pacing: <1% COMMENTS: Consult device check for MRI clearance. Patient follows at outside facility. Battery and leads are stable. 1 NSVT episode noted lasting seconds. Note for MRI clearance below. Cardiology Check List for MRI Conditional Devices Patient name: Manolo Roche : 1935 Device Roll Builder: Sweet Device Model#: Linn [id number] Serial#: [id number] (Conditional) RA Model#: Sweet ULTIPACE/[id number] / 52cm Serial#: [id number] (Conditional) RV Model#: Sweet Maríata 7122QS / 58cm Serial#: [id number] (Conditional) LV Model#: N/A Serial#: N/A CXR completed to r/o abandoned and fractured leads (within 30 Days): No, CXR ordered 1. The patient was reviewed for the following: Yes - The patient has a complete MRI conditional system implanted pectorally Yes - Leads have been implanted for at least 6 weeks Yes - No additional active or abandoned leads, lead extenders, adaptors or pulse generators Yes - Measured pacing thresholds do not exceed 2.0V at 0.4ms Yes - Pacing system is functionally normal Yes - The battery status is neither NELLA or EOS 2. The patients device will be programmed to the below mode for MRI: Pacing Mode: AOO Pacing Rate: 80 bpm Time-out (if applicable): Not applicable 3. Post scan, program parameters to original settings. Check the pacing thresholds to ensure propersafety margin. RA RV LV Pre-MRI Post-MRI Pre-MRI Post-MRI Pre-MRI Post-MRI Sensing (MV) 3.1 --- >12.0 --- N/A N/A Capture Threshold (V @ __ms) 0.5v@0.5ms --- 0.75v@0.5ms --- N/A N/A Impedance (Ohms) 360 --- Pace 410 Shock 51 Pace --- Shock --- N/A N/A -Low risk and MR conditional Sweet device. Will use Device RN to program for MRI scan. -Will forward for review/approval. Cosigned by Laura Paulino DO at 06/25/2025 3:30 PM EST Associated attestation - Laura Paulino DO - 06/25/2025 3:30 PM EST I personally reviewed all aspects of the device interrogation and agree with the documentation. Reviewed CXR. OK to proceed. Dr. Nicolas * KassoDoreen dean LISW - 06/25/2025 1:27 PM EST 06/25/25 1300 Assessment and Discharge Planning Evaluation READMISSION LESS THAN 30 DAYS No READMISSION RISK SCORE IS Rising Risk INTERVIEWED Patient COGNITIVE STATUS Oriented FUNCTIONAL STATUS PRIOR TO ADMISSION Independent with ADL's HAS ADVANCE DIRECTIVE ON FILE No LIVING SITUATION Home with Family CONNECTED TO MENTAL HEALTH SERVICES No CONNECTED TO COMMUNITY SERVICES No CONNECTED TO SUBSTANCE ABUSE SERVICES No ADMISSION INSURANCE Medicare TRANSPORTATION TO AND/OR FROM APPOINTMENTS Family/Friend Provides Ride HOME OXYGEN No HOME HEALTH CARE PRIOR TO ADMISSION No DIALYSIS No DISCUSSSED WHAT HELP PATIENT WOULD NEED Yes DISCHARGE DISPOSITION DC to SNF Chart reviewed. Will wait PT/OT evaluations and ID recommendations to assist in determining dc planning needs. SW will follow Addendum: Pt has been cleared for home at time of dc. Will wait ID recommendations to assist in determining dc planning needs JUSTIN Pelaez, ROSA-S [phone] * Maribel Romero MD - 06/25/2025 11:36 AM EST Hospital Medicine Progress Note Manolo Roche Age [age] year old male [id number] Admitted 06/24/2025 5:46 PM Hospital Day: 2 Subjective HOSPITAL COURSE: Sweet dual chamber ICD in May [address] Root. INTERVAL HPI: NAEO. Pt reporting continued lowe midline back pain . Hospital course and chart reviewed Objective PHYSICAL EXAM: BP 141/89 (BP Location: right arm) Pulse 58 Temp 97.4 ??F (36.3 ??C) (Oral) Resp 18 Ht 5' 10 (1.778 m) Wt 135 lb (61.2 kg) SpO2 96% BMI 19.37 kg/m?? General: nad HEENT: MMM Cv: S1; S2; normal rate; normal rhythm; no murmurs, rubs, or gallops Pulmy: ctab Abdomen: Soft; non-tender; non-distended; normal bowel sounds; no guarding or RBT Back: Lower Paraspinal/midline tenderness in the lumbar region; bilateral positive straight leg raise; no CVA tenderness Extremities: No pitting edema; pulses intact and symmetrical Neuro: Alert; oriented x3; conversational; CN 2-12 grossly intact; normal strength in all extremities; normal sensation; no focal deficit; no saddle anesthesia Skin: Warm; dry; no obvious rash DATA select: Labwork is notable for bg 149-330, severe hyperglycemia, hgb anemia 10.4 Order for tomorrow: Labwork bmp, cbc Assessment & Plan MSSA bacteremia Presence of implantable cardioverter-defibrillator (ICD) Acute midline low back pain without sciatica Postoperative urinary retention S/P TURP (transurethral resection of prostate) 89 y/o M with PMH of HFrEF s/p biventricular ICD, CAD s/p PCI, CKD3, and BPH s/p recent TURP admitted with MSSA bacteremia, most likely related to recent genitourinary instrumentation. This is occurring in the setting of subacute back pain and presence of an implantable cardiac device, both of which raise concern for deep-seated infection, such as vertebral osteomyelitis, discitis, and ICD-associated infection. Transferred to [facility] for advanced imaging and definitive source evaluation. Arrives having already received 2 full days of appropriate antibiotic coverage. - admit to 8E - consulting ID given MSSA + ICD + possible OM/discitis - repeat blood cultures drawn on 06/24 - obtain TTE; will likely need LINDA unless goals of care change - needs MRI thoracic/lumbar spine; must confirm make/model of biventricular ICD first, however unable to locate details in OSH records, patient contacting to bring in ICD paperwork from home - continue cefazolin - ID consulted appreciate recs on utility of MRI vs empiric treatment for discitis and need for LINDA Type 1 diabetes mellitus with hyperglycemia (HCC) History of pancreatectomy 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 Follows with endocrinology at [facility] [place]. - uncontrolled; A1C 12.8% in 04/2025 - lantus 15 units HS - lispro sliding scale insulin TID AC - glucose checks TID AC + HS - hypoglycemia protocol - carb controlled diet HFrEF (heart failure with reduced ejection fraction) CAD (coronary artery disease) Essential hypertension Hyperlipidemia - stable; no active chest pain; no signs of volume overload - continue home ASA 81 mg daily - continue home atorvastatin 40 mg HS - continue home losartan 25 mg daily - continue home toprol 12.5 mg HS - continue home spironolactone 25 mg daily Stage 3 chronic kidney disease (HCC) - initially presented to [facility] with an DENISHA (Scr 1.7); since resolved - Scr of 1.15 on presentation here - renally dose medications Anemia Hgb 10.4 on admission No active signs of bleeding -check iron studies Left arm swelling LUE DVT US r/o dvt Time-based billing justifications: Reviewing (chart, labs, and other clinical notes) Obtaining history (or reviewing separately obtained history) Patient visit (including performing a medically appropriate exam) Counseling/educating the patient/family/caregiver Ordering (medications, tests, procedures - including independent interpretation of results when notreported separately) Charting in Epic DVT PPX: lovenox CODE: DNR Comfort Care Arrest (Do Not Intubate Prior to Arrest) DISPO: Maribel Romero MD documented in this encounter H&P Notes * Jose Núñez, DO - 07/02/2025 8:37 AM EST Images from the original note were not included. Pre-Procedure & Moderate Sedation Note Date and Time: 07/02/2025 8:37 AM Referring Provider: Prashant Hidalgo Room: [place] [address] Name: Manolo Roche :1935 male 89 year old Allergy:Allergies[1] Planned Procedure Procedure Indication Conscious sedation LINDA Endocarditis History of Present Illness: Manolo Roche is a 89 year old White male with PMHx of HFrEF, Hx VT s/p ICD, HTN, DM, CKD, status post pancreatectomy for IPMN, BPH s/p recent TURP, currently admitted with MSSA bacteremia. ID saw ptand since he has an ICD need to make sure no vegetations there. ROS otherwise negative. Ho esophageal disease (eg GERD/esophagitis, ulcer, stricture) ?No . Pt just had an EGD that was normal Loose teeth, denture ? Yes has dentures but took them out On anti-coagulation therapy ? 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 No History of adverse reactions involving sedation/anesthesia No Last meal was full and occurred 8 or more hours ago ASA Classification: Class III: Individual with multiple system disease or well controlled major system disease. Disease status limits daily activity. Mallampati Classification: Class III Only soft palate visible Based on history and airway assessment, patient is an appropriate to undergo planned procedure and for moderate Sedation with versed and fentanyl Brief Critical Labs: Hemoglobin (g/dL) Date Value 07/02/2025 8.6 (L) Creatinine (mg/dL) Date Value 07/02/2025 0.99 INR (no units) Date Value 06/29/2025 2.65 (H) Cardiac Tests: ECG: Last Echo 06/25/25 Focal superimposed on globally abnormal LV systolic function: akinetic apex. The left ventricular ejection fraction (LVEF) is 35%. The left atrial size is severely increased. Normal right ventricular size and function. The right atrium is dilated. Fibrocalcific changes are seen in the aortic valve, mitral annulus. There is mild mitral regurgitation. There is mild-moderate tricuspid regurgitation. Noninvasive hemodynamic assessment is consistent with mild pulmonary hypertension (40-50 mmHg), a normal right atrial pressure, an increased LV filling pressure. No evidence of a thrombus in the left ventricular apex. A mass is seen in the right ventricle which is most consistent with a electrical lead. No gross vegetations but unable to exclude due intrinsic valve disease and cardiac electrical lead. EF trend: Left Ventricular Ejection Fraction Date Value Ref Range Status 06/25/2025 35 % Final Last stress test: N/A Last cardiac catheterization: N/A PMH PSH Medical History[2] Surgical History[3] Social History Family History Social History[4] Family History[5] Current Outpatient Medications: Medications Ordered Prior to Encounter[6] Current Inpatient Medications: Current Facility-Administered Medications Medication Dose Route Frequency Provider Last Rate Last Admin insulin glargine (LANTUS) 100 UNIT/ML injection 8 Units Subcutaneous At Bedtime Maribel Romero MD 8 Units at 07/01/25 2221 [START ON 07/03/2025] enoxaparin (LOVENOX) 40 MG/0.4ML injection 40 mg 40 mg Subcutaneous Daily Maribel Romero MD insulin lispro (HumaLOG) 100 UNIT/ML injection 2 Units Subcutaneous 3x Daily AC Maribel Romero MD 2 Units at 07/01/25 1746 ertapenem (INVANZ) 1,000 mg in sodium chloride 0.9 % 100 mL V2B 1,000 mg Intravenous Q24H Antibiotic Maribel Romero MD 200 mL/hr at 07/01/25 0941 1,000 mg at 07/01/25 0941 oxyCODONE immediate release tablet 7.5 mg Oral Q4H PRN Maribel Romero MD 7.5 mg at 07/01/25 2338 senna (SENOKOT) tablet 8.6 mg Oral BID Maribel Romero MD 8.6 mg at 07/01/25 2220 oxyCODONE immediate release tablet 5 mg Oral Q6H PRN Maribel Romero MD 5 mg at 07/01/25 0527 zvcafgn-utvdnw-zotdiopg (CREON) 88523 units capsule 24,000 Units Oral 3x Daily with Meals Vinicius,Vikas, DO 24,000 Units at 07/01/25 1746 polyethylene glycol (MIRALAX) 17 g packet 17 g Oral Daily Maribel Romero MD 17 g at 06/26/25 0920 losartan (COZAAR) tablet 25 mg Oral Daily Sudarshan Lovett MD 25 mg at 07/01/25 0928 spironolactone (ALDACTONE) tablet 25 mg Oral Daily Sudarshan Lovett MD 25 mg at 07/01/25 0928 ceFAZolin Sodium (ANCEF) 2,000 mg in sodium chloride 0.9 % 100 mL (V2B) 2,000 mg Intravenous Q8H Antibiotic Sudarshan Lovett MD 200 mL/hr at 07/02/25 0612 2,000 mg at 07/02/25 0612 lidocaine (LIDODERM) 4 % patch 1 Patch Transdermal Every 24 hours Sudarshan Lovett MD 1 Patch at 06/30/252109 ferrous sulfate 325 mg (65 mg elemental) tablet 325 mg Oral 2x Daily AC Sudarshan Lovett MD 325 mgat 07/01/25 174 dextrose 10 % iv infusion 12.5 g Intravenous PRN Sudarshan Lovett MD 999 mL/hr at 06/29/25 1128 125 mL at 06/29/25 1128 Or glucagon (GLUCAGEN) 1 MG injection 1 mg Subcutaneous PRN Sudarshan Lovett MD Or dextrose (GLUTOSE) 40 % oral gel 15 g of glucose Buccal PRN Sudarshan Lovett MD Or dextrose (GLUTOSE) 40 % oral gel 30 g of glucose Buccal PRN Sudarshan Lovett MD insulin lispro (HumaLOG) 100 UNIT/ML injection 1-6 Units Subcutaneous 3x Daily AC Sudarshan Lovett MD 4 Units at 07/01/25 174 PARoxetine (PAXIL) tablet 40 mg Oral Daily Sudarshan Lovett MD 40 mg at 07/01/25927 atorvastatin (LIPITOR) tablet 40 mg Oral At Bedtime Sudarshan Lovett MD 40 mg at 07/01/252219 tamsulosin (FLOMAX) capsule 0.4 mg Oral Daily Sudarshan Lovett MD 0.4 mg at 07/01/2528 metoprolol (TOPROL-XL) 24 hour tablet 12.5 mg Oral At Bedtime Sudarshan Lovett MD 12.5 mg at 07/01/252219 acetaminophen (TYLENOL) tablet 1,000 mg Oral 3x Daily Sudarshan Lovett MD 1,000 mg at 07/01/25 174 ondansetron (ZOFRAN) 4 MG/2ML injection 4 mg Intravenous Q8H PRN Sudarshan Lovett MD melatonin tablet 3 mg Oral At Bedtime PRN Sudarshan Lovett MD 3 mg at 06/29/252123 docusate sodium (COLACE) capsule 100 mg Oral Daily PRN Sudarshan Lovett MD Current Medication list reviewed Yes Laboratory Tests: CBC 07/02/2025 07/01/2025 06/30/2025 06/29/2025 06/28/2025 06/27/2025 06/26/2025 06/24/2025 3:23 AM 5:24 AM 11:29 AM 4:34 AM 1:35 AM 5:43 AM 4:10 AM 8:52 PM WBC 8.3 6.4 7.7 9.5 7.0 7.9 11.1 9.8 RBC 3.17 3.45 3.20 3.67 3.31 3.38 3.32 4.00 Hgb 8.6 9.0 8.6 9.8 8.8 9.1 8.7 10.4 Hct 25.2 27.8 25.6 29.6 26.6 27.1 26.8 32.0 MCV 80 81 80 81 80 80 81 80 RDW 15.5 15.6 15.8 15.9 15.3 15.3 15.6 15.9 Plt 407 445 433 518 463 435 421 425 BMP (last 1 year, up to 8 values) 07/02/2025 07/01/2025 06/30/2025 06/29/2025 06/29/2025 06/28/2025 06/27/2025 06/26/2025 3:23 AM 5:24 AM 11:29 AM 11:46 AM 4:34 AM 1:35 AM 5:43 AM 4:10 AM Na 134 134 135 137 141 133 134 135 K 4.7 4.8 4.3 4.4 3.1 4.6 4.2 4.2 Cl 102 102 102 104 116 103 103 105 CO2 26 26 26 25 21 24 22 22 Gap 11 11 11 12 7 11 13 12 Glu 233 298 274 78 41 409 280 115 BUN 17 17 16 16 14 21 22 24 Cr 0.99 0.96 0.91 0.88 0.58 0.95 0.92 0.96 Ca 7.9 7.9 8.0 8.6 6.0 8.0 8.1 8.1 eGFR 73 76 81 83 94 77 80 76 PO4 -- -- -- -- 2.4 -- -- -- CrCl and eGFR: Date of last serum creatinine: 07/02/2025 Estimated Creatinine Clearance: 44.65 mL/min (by C-G formula based on SCr of 0.99 mg/dL). Estimated Glomerular Filtration Rate: 73.3 mL/min/1.73m2 (by CKD-EPI based on SCr of 0.99 mg/dL). LFT's (last 3 years, up to 8 values) 06/29/2025 4:34 AM T Prot 4.4 Albumin 2.2 D Bili 0.05 T Bili 0.2 Alk Phos 85 ALT <3 AST 13 PT/INR 06/29/2025 06/29/2025 11:46 AM 4:34 AM aPTT -- 36 INR 2.65 2.71 Hemoglobin A1c (%) Date Value 04/09/2025 12.8 (H) Hemoglobin A1C (POCT) (%) Date Value 10/26/2024 12.0 (A) 07/06/2024 10.1 (A) No results found for: TSH Brief Physical Examination: Vitals: BP 167/58 (BP Location: left arm) Pulse 62 Temp 97.9 ??F (36.6 ??C) (Oral) Resp 18 Ht 5' 10 (1.778 m) Wt 135 lb (61.2 kg) SpO2 100% BMI 19.37 kg/m?? Appearance: Normal Findings: alert, oriented, no acute distress Lungs: clear to auscultation Cardiac: regular rate and rhythm without murmurs, rubs, or gallops Abdomen: Deferred Extremities: negative Consent disclosure Risks, benefits, and alternatives were discussed with the patient and / or patient surrogate and they are agreeable to proceed. If advance directive DNR/DNI is present, discussed with the patient and code status is revoked to full code during procedure period. Yes Fellow: Jose Núñez DO 07/02/2025 [1] Not on File [2] No past medical history on file. [3] Past Surgical History: Procedure Laterality Date ESOPHAGOGASTRODUODENOSCOPY N/A 06/29/2025 Preliminary Information: Procedure: ESOPHAGOGASTRODUODENOSCOPY; Surgeon: Florentino Lindsey MD; Location: [facility]; Service: Gastroenterology [4] [5] No family history on file. [6] No current facility-administered medications on file prior to encounter. No current outpatient medications on file prior to encounter. * Lazara Elmore DO - 06/29/2025 3:27 PM EST Written informed consent obtained from patient. Endoscopic procedure risks (including but not limited to perforation, infection, bloating and bleeding) benefits and alternatives explained and questions answered. Patient verbalized understanding. HISTORY & PHYSICAL: Patient's history with special attention to the cardiovascular, pulmonary systems and the current problem was reviewed with the patient prior to the procedure. Medications, allergies, and pertinent laboratory tests were also reviewed at this time. The physical examination,as below, was then performed. Vital Signs Reviewed Mouth and Pharynx : Oropharynx, clear Cardiac: regular rate and rhythm Pulmonary: Normal work of breathing Neurological: normal without focal findings Abdomen: Abdomen soft, non-tender. BS normal. Patient will undergo sedation with the assistance of anesthesia physician/[employer]/AA team. Please see corresponding note for full details. 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 Patient presented to [facility] on 06/20/2025 for bilateral low back pain. In the ED, VS's were largely unremarkable. CBC showed significant leukocytosis (WBC 17.5) with a left shift. BMP showed an DENISHA (Scr of 1.7). XR thoracic/lumbar spine did not show any acute process. CT A/P showed bilateral hydroureteronephrosis with bladder distension; kimble was placed and drained 500 cc urine. UA positive for leukocyte esterase. Patient was admitted and started on zosyn. Urine and blood cultures ended up growing MSSA. Zosyn switched to cefazolin. CT thoracic/lumbar spine did not show any signs suggestive of abscess/discitis. Plan was to obtain an MRI thoracic/lumbar spine; however, apparently MRI machine at [facility] is not compatible with patient's biventricular ICD. Options were totreat empirically for 6 weeks vs transfer to a facility with a compatible MRI machine. Decision made to transfer to [facility]. On bedside evaluation, patient was resting comfortably in bed. He corroborates the history above. He describes his back pain as constant. Interestingly, he reports it began prior to his TURP. He denies any bowel/bladder incontinence, saddle anesthesia, numbness, tingling, or radiating back pain. Healso denies any fevers, chills, chest pain, palpitations, dyspnea, cough, nausea, vomiting, diarrhea, light-headedness, or syncope. Medical History[1] Surgical History[2] Patient has no allergy information on record. Family History[3] Social History Tobacco Use Smoking status: Not on file Smokeless tobacco: Not on file Substance Use Topics Alcohol use: Not on file Objective BP 139/67 (BP Location: right arm) Pulse 60 Temp 97.4 ??F (36.3 ??C) (Oral) Resp 18 Ht 5' 10 (1.778 m) Wt 135 lb (61.2 kg) SpO2 97% BMI 19.37 kg/m?? Physical Exam: General: White; male; appears well; not in acute distress Neuro: Alert; oriented x3; conversational; CN 2-12 grossly intact; normal strength in all extremities; normal sensation; no focal deficit; no saddle anesthesia HEENT: PERRL; EOM intact Cardiovascular: S1; S2; normal rate; normal rhythm; no murmurs, rubs, or gallops Pulmonary: Clear to auscultation bilaterally; non-labored breathing Abdomen: Soft; non-tender; non-distended; normal bowel sounds; no guarding or RBT Back: Paraspinal tenderness in the lumbar region; bilateral positive straight leg raise; no CVA tenderness Extremities: No pitting edema; pulses intact and symmetrical Skin: Warm; dry; no obvious rash Data: Labwork notable for: See HPI Imaging: See HPI Assessment & Plan MSSA bacteremia Presence of implantable cardioverter-defibrillator (ICD) Acute midline low back pain without sciatica Postoperative urinary retention S/P TURP (transurethral resection of prostate) 89 y/o M with PMH of HFrEF s/p biventricular ICD, CAD s/p PCI, CKD3, and BPH s/p recent TURP admitted with MSSA bacteremia, most likely related to recent genitourinary instrumentation. This is occurring in the setting of subacute back pain and presence of an implantable cardiac device, both of which raise concern for deep-seated infection, such as vertebral osteomyelitis, discitis, and ICD-associated infection. Transferred to [facility] for advanced imaging and definitive source evaluation. Arrives having already received 2 full days of appropriate antibiotic coverage. 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 Follows with endocrinology at [facility]. - uncontrolled; A1C 12.8% in 04/2025 - lantus 15 units HS - lispro sliding scale insulin TID AC - glucose checks TID AC + HS - hypoglycemia protocol - carb controlled diet HFrEF (heart failure with reduced ejection fraction) CAD (coronary artery disease) Essential hypertension Hyperlipidemia - stable; no active chest pain; no signs of volume overload - continue home ASA 81 mg daily - continue home atorvastatin 40 mg HS - continue home losartan 25 mg daily - continue home toprol 12.5 mg HS - continue home spironolactone 25 mg daily Stage 3 chronic kidney disease (HCC) - initially presented to [facility] with an DENISHA (Scr 1.7); since resolved - Scr of 1.15 on presentation here - renally dose medications DVT PPX: Lovenox CODE: DNR CCA - DO NOT INTUBATE DISPO: TBD Rachell Heaton MD [1] No past medical history on file. [2] No past surgical history on file. [3] No family history on file. documented in this encounter Procedure Notes * Hemalatha Grant RN - 07/03/2025 10:57 AM EST BEDSIDE RN PICC LINE INSERTION PROCEDURE NOTE Date: 07/03/2025 Time: 1057 Patient location: Indication for line: IV ABX Consent obtained. PICC consent obtained from PATIENT by ERICK MO RN Two identifiers used: NAME and Time out performed at bedside: 1046 Placement method: U/S MST with VPS Analgesia: LIDOCAINE Catheter utilized: 4.5 fr. SINGLE lumen 55 cm Catheter length: 39 Procedure details: PICC catheter was inserted using sterile technique to the RIGHT BRACHIAL vein. Placement attempts: ONE. Placement successful: YES. Placement verified via ECG/VPS guided technology. 0 cm of catheter exposed. A dry CHG impregnated occlusive dressing was applied to the site and secured using suture. Procedure tolerated by patient: YES. Complications: NONE. Catheter was flushed with NS and Heplock flush. Central line information sheet and verbal education provided. CHEST X-RAY NEEDED FOR PICC PLACEMENT VERIFICATION Hemalatha Grant RN Vascular Access Team documented in this encounter Consult Notes * Alvina Joy OT - 07/03/2025 10:47 AM EST OCCUPATIONAL THERAPY PROGRESS SUMMARY Patient seen from 1002 to 1026 on GC8E unit for 24 minute co-treatment with PT 2/2 pt self-limitingand c/f participation. SUBJECTIVE: Patient Subjective/Goals: Okay so don't help me then (re: therapist not providing assist with sitto stand as pt has to complete at home, pt completed CS level) OBJECTIVE: Pain: 12/19, back Pain Relief Interventions Implemented: Notified Nurse Appearance/Behavior: supine in bed on arrival, hospital gown, PIV, family at bedside. Awake, irritable, cooperative with encouragement Cognition: A&Ox3 UE Status: AROM WFL for ADLs Self Care: Assistance Level NA Dep Max Mod Min CG CS DS WA I Set-Up Cues Comment Feeding x Grooming/ Hygiene x Anticipate standing at sink Bathing: Upper Body x Bathing: Lower Body x Dressing: Upper Body x Donned gown to backside Dressing: Lower Body x Toileting x Anticipate for clothing management Toilet Transfers x Anticipate based on bed transfer Bed Transfer x Sit to stand from EOB to RW x 2 trials. Increased time to come to stand, flexed posture. Pt impulsively returns seated after initial stand 2/2 dizziness. Average household distance functional mobility in dubose with RW, flexed posture, slow pace, grossly steady. Seated rest break in dubose. Stand to sit in chair, good hand placement. Bed Mobility x Supine to sit EOB, HOB elevated. Increased time to complete transition Patient seated in chair end of session with chair alarm on, call light and phone within reach and all current needs met. Instructed pt to use call light for nursing assist for return to bed or for mobility needs; pt voiced understanding. Family at bedside. RN aware of pt location and mobility status. Endurance for Self Care: Impaired Patient/Family Education: Instructed Patient in roles of therapy, OOBTC for 1 hour, NOT to mobilizewithout staff DME: With Patients permission ordered no equipment via [employer] Order. If any questions contact [facility] [place] DME Provider at [phone]. 07/03/2025 6 Clicks Daily Activity OT Help from another person Eating meals 4 Help from another person taking care of personal grooming 3 Help from another person bathing 3 Help from another person putting on and taking off regular upper body clothing 3 Help from another person putting on and taking off regular lower body clothing 3 Help from another person toileting 3 OT 6 Clicks Score 19 6 Click Score Guidelines: 1 - Unable = Total/Dependent Assist 2 - A lot = Max/Moderate Assist 3 - A little = Minimum/Contact Guard Assist/Supervision 4 - Non = Modified [place]/Independent ASSESSMENT: Patient is functionally appropriate for discharge home once medically cleared. Recommend home OT follow up. Will continue to follow patient while in hospital as appropriate. Recommend PRN family/caregiver assist for safe completion of ADLs/IADLs. Goals (to be achieved by discharge from acute care): all goals ongoing Patient will perform grooming standing at sink with Modified Independent Patient will dress upper body with Modified Independent Patient will dress lower body with Modified Independent Patient will perform bed mobility with Modified Independent Patient will perform bathing with Modified Independent Patient will perform toileting with Modified Independent Patient will perform bed transfers with Modified Independent Patient will perform commode transfers with Modified Independent Report reduced pain level to allow for participation in ADL/IADL PLAN: Continue with Plan as per Initial Evaluation. Alvina Joy, OTR/L NA = Not Assessed, I = Independent, WA = Modified Independent, Sup = Supervised, Set up = Physical Assistance for Set-up Only, Min = Minimal Assistance, Mod = Moderate Assistance, Max = Max assistance; Dep = Dependent; AROM = Active Range of Motion;PROM=Passive Rangeof Motion; MMT = Manual Muscle Test; Shld= Shoulder; Add = Adduction; Abd = Abduction * Lorraine Mike, PT - 07/03/2025 10:46 AM ESTAssociated Order(s): IP PHYSICAL THERAPY SERVICE REQUEST PHYSICAL THERAPY PROGRESS SUMMARY Patient seen from 10:02 am to 10:26 am on 8E unit for 24 minute treatment. Patient seen as co-treatment with occupational therapy secondary to c/f participation. Diagnosis: MSSA bacteremia Anemia T10 compression with possible OM SUBJECTIVE: Patient Subjective/Goals: I want to go home OBJECTIVE: Appearance: Supine in bed at bedside Hospital gown IV Behavior: Awake Alert Cooperative with education Irritable Oriented x 3 Pain: Site/Location: back ; Pain Scale: 6 /10 Pain Relief Interventions Implemented: Positioning, Rest, Notified Nurse, and Relaxation Training Mobility NA Dep Max Mod Min CG CS Sup DS WA I Comment Supine to sit X Increased time Sit to stand X EOB to RW x 2 with increased time Chair to RW x 2 with increased time 1 episode of dizziness upon standing. Patient reports this happens in the mornings. Walking on level surface X 75 feet with RW x 2 Slow speed, short strides, grossly steady Stairs X 4 steps with railings Reciprocal, mild unsteadiness Fatigue noted, patient declines further practice Seated Balance X Static: Good EOB and in chair Dynamic: NT Standing balance X X Static: Good with RW Dynamic: Fair with RW Functional Endurance: Fair ; fatigue noted. Seated rest breaks required Patient Education: Instructed Patient in roles, goals, treatment plan: demonstrated good verbal understanding. Educated patient NOT to stand or mobilize without staff assist to minimize fall risk and improve safety Encouraged patient to sit upright in chair x 1 hr Patient up in chair with call light in reach. and grandson at bedside. DME: With Patients permission ordered no equipment via [employer] Order. If any questions contact [facility] [place] DME Provider at [phone]. 07/03/2025 6 Clicks Basic Mobility PT Difficulty turning over in bed 3 Difficulty sitting down and standing up from a chair with arms 3 Difficulty moving from lying on back to sitting on the side of the bed 3 Help from another person moving to and from bed to a chair 3 Help from another person to walk in hospital room 3 Help from another person climbing 3-5 steps with a railing 3 PT 6 Clicks Score 18 6 Click Score Guidelines: 1 - Total = Requires total assistance, or cannot do at all. 2 - A lot = Requires a lot of help (maximun to moderate assistance) Can use assistive devices. 3 - A little = Requires a little help (supervision, minimal assistance) Can use assistive devices. 4 - None = Does not require any help and does the activity independently. Can use assistive devices. Progressive Mobility Protocol Score: Level 4 ASSESSMENT: Patient tolerated treatment session well. Patient is functionally appropriate for discharge home once medically cleared. Will continue to follow patient while in hospital as appropriate. Recommend Home Physical Therapy. Goals (to be achieved by discharge from acute care): ongoing / progressing Patient to achieve acceptable level of pain control to participate in Therapy sessions. met Patient to improve supine to sit to min A met Revised: mod I Patient to demonstrate sit to stand transfer to/from multi-level surface mod I with RW Patient to ambulate 120 feet with RW, mod I Patient to ascend/descend 4 steps with railing (s), CS met Revised: mod I Patient to demonstrate appropriate stamina and balance to attain above functional goals without LOBor SOB. PLAN: Continue with plan per Initial Evaluation Lorraine Mike, PT, DPT NA = Not Assessed, I = Independent, WA = Modified Independent, Sup = Supervised, Set up = Physical Assistance for Set-up Only, Min = Minimal Assistance, Mod = Moderate Assistance, Max = Maximal assistance; Dep = Dependent; AROM = Active Range of Motion; PROM = Passive Range of Motion; MMT = Manual Muscle Test * Lorraine Mike, PT - 06/29/2025 10:54 AM EST PHYSICAL THERAPY PROGRESS SUMMARY Patient seen from 10:27 am to 10:51 am on 8E unit for 34 minute treatment. Patient seen as co-treatment with occupational therapy secondary to c/f participation. Diagnosis: MSSA bacteremia Anemia T10 compression with possible OM SUBJECTIVE: Patient Subjective/Goals: I haven't been able to do anything OBJECTIVE: Appearance: Supine in bed Hospital [facility] pants donned Kim[place] Behavior: Awake Alert Cooperative with education and encouragement Irritable Follows simple commands consistently Pain: Site/Location: back; Pain Scale: tolerable /10 Pain Relief Interventions Implemented: Positioning and RN aware and reports patient received medication according to time schedule Mobility NA Dep Max Mod Min CG CS Sup DS WA I Comment Supine to sit X Transfers X Eob to chair with RW Sit to stand X EOB to RW Chair to Rw Mild unsteadiness Walking on level surface X 75 feet x 2 with RW Slow speed, short strides, NBOS, grossly steady Seated Balance X X Static: Good EOB Dynamic: Fair EOB donning pants Standing balance X X Static: Fair with RW Dynamic: Fair with RW Functional Endurance: Fair Patient Education: Instructed Patient in roles, goals, treatment plan: demonstrated good verbal understanding. Educated patient NOT to stand or mobilize without staff assist to minimize fall risk and improve safety Encouraged patient to sit upright in chair x 1 hr Patient up in chair with call light in reach. Family at bedside DME: With Patients permission ordered no equipment via [employer] Order. If any questions contact [facility] [place] DME Provider at [phone]. 06/29/2025 6 Clicks Basic Mobility PT Difficulty turning over in bed 3 Difficulty sitting down and standing up from a chair with arms 3 Difficulty moving from lying on back to sitting on the side of the bed 3 Help from another person moving to and from bed to a chair 3 Help from another person to walk in hospital room 3 Help from another person climbing 3-5 steps with a railing 2 PT 6 Clicks Score 17 6 Click Score Guidelines: 1 - Total = Requires total assistance, or cannot do at all. 2 - A lot = Requires a lot of help (maximun to moderate assistance) Can use assistive devices. 3 - A little = Requires a little help (supervision, minimal assistance) Can use assistive devices. 4 - None = Does not require any help and does the activity independently. Can use assistive devices. Progressive Mobility Protocol Score: Level 4 ASSESSMENT: Patient tolerated treatment session well. Patient is functionally appropriate for discharge home once medically cleared. Will continue to follow patient while in hospital as appropriate. Goals (to be achieved by discharge from acute care): ongoing Patient to achieve acceptable level of pain control to participate in Therapy sessions. met Patient to improve supine to sit to min A met Revised: mod I Patient to demonstrate sit to stand transfer to/from multi-level surface mod I with RW Patient to ambulate 120 feet with RW, mod I Patient to ascend/descend 4 steps with railing (s), CS Patient to demonstrate appropriate stamina and balance to attain above functional goals without LOBor SOB. PLAN: Continue with plan per Initial Evaluation Lorraine Mike PT, DPT NA = Not Assessed, I = Independent, WA = Modified Independent, Sup = Supervised, Set up = Physical Assistance for Set-up Only, Min = Minimal Assistance, Mod = Moderate Assistance, Max = Maximal assistance; Dep = Dependent; AROM = Active Range of Motion; PROM = Passive Range of Motion; MMT = Manual Muscle Test * Alvina Joy OT - 06/29/2025 10:53 AM EST OCCUPATIONAL THERAPY PROGRESS SUMMARY Patient seen from 1028 to 1051 on GC8E unit for 23 minute co-treatment with PT for pt safety with mobility and to maximize tx session. SUBJECTIVE: Patient Subjective/Goals: no one is telling me anything! (Frustrated with waiting for procedure) OBJECTIVE: Pain: tolerable /10 Pain Relief Interventions Implemented: RN aware and reports patient received medication according to time schedule Appearance/Behavior: supine in bed on arrival, hospital gown, PIV, kimble. Awake, irritable, cooperative with encouragement, frustrated with hospital stay and NPO status Cognition: follows 1 step commands UE Status: AROM WFL for ADLs Self Care: Assistance Level NA Dep Max Mod Min CG CS DS WA I Set-Up Cues Comment Feeding NPO Grooming/ Hygiene x Anticipate standing at sink Bathing: Upper Body x Simulated with functional reach Bathing: Lower Body x Anticipate assist for distal BLEs Dressing: Upper Body x Simulated to don shirt Dressing: Lower Body x Seated EOB, pt donned slippers, required min A to manage heel into shoe. Required min A to thread RLE through pant leg 2/2 kimble, pt able to manage LLE. Required min A to manage pants up over hips in standing. Toileting x Kimble Toilet Transfers x Anticipate based on bed/chair transfer Bed Transfer x x Sit to stand from EOB to RW, min A to boost 2/2 mild unsteadiness. Short distance functional mobility in dubose, slow but steady pace, flexed posture, no overt LOB noted. Required seated rest break in dubose, min A to boost from chair. Stand to sit in chair, cues for hand placement. Bed Mobility x Supine to sit EOB via log roll, cues for technique Patient seated in chair end of session with chair alarm on, call light and phone within reach and all current needs met. Instructed pt to use call light for nursing assist for return to bed or for mobility needs; pt voiced understanding. Family at bedside. Endurance for Self Care: Good Patient/Family Education: Instructed Patient in roles of therapy, OOBTC for 1 hour, NOT to mobilizewithout staff, safe transfer techniques DME: With Patients permission ordered no equipment via [employer] Order. If any questions contact [facility] [place] DME Provider at [phone]. 06/29/2025 6 Clicks Daily Activity OT Help from another person Eating meals 4 Help from another person taking care of personal grooming 3 Help from another person bathing 3 Help from another person putting on and taking off regular upper body clothing 3 Help from another person putting on and taking off regular lower body clothing 3 Help from another person toileting 1 OT 6 Clicks Score 17 6 Click Score Guidelines: 1 - Unable = Total/Dependent Assist 2 - A lot = Max/Moderate Assist 3 - A little = Minimum/Contact Guard Assist/Supervision 4 - Non = Modified [place]/Independent ASSESSMENT: Patient is functionally appropriate for discharge home once medically cleared. Will continue to follow patient while in hospital as appropriate. Recommend PRN family/caregiver assist for safe completion of ADLs/IADLs. Goals (to be achieved by discharge from acute care): all goals ongoing Patient will perform grooming standing at sink with Modified Independent Patient will dress upper body with Modified Independent Patient will dress lower body with Modified Independent Patient will perform bed mobility with Modified Independent Patient will perform bathing with Modified Independent Patient will perform toileting with Modified Independent Patient will perform bed transfers with Modified Independent Patient will perform commode transfers with Modified Independent Report reduced pain level to allow for participation in ADL/IADL PLAN: Continue with Plan as per Initial Evaluation. Alvina Joy OTR/L NA = Not Assessed, I = Independent, WA = Modified Independent, Sup = Supervised, Set up = Physical Assistance for Set-up Only, Min = Minimal Assistance, Mod = Moderate Assistance, Max = Max assistance; Dep = Dependent; AROM = Active Range of Motion;PROM=Passive Rangeof Motion; MMT = Manual Muscle Test; Shld= Shoulder; Add = Adduction; Abd = Abduction * Jennifer Mitchell - 06/29/2025 8:26 AM EST Images from the original note were not included. Dietitian vs DietaryTech: Dietary TechDiet Continuous Absorption Process Operator Nutrition Screening Reason for visit: LOS 5 or more days Assessment Admitting Diagnosis: DENISHA, UTI, BACK PAIN, ANEMIA High risk nutrition diagnosis: No - no points Past Medical History: Medical History[1] Food Allergies: none Labs: LFT's (last 3 years, up to 8 values) 06/29/2025 4:34 AM T Prot 4.4 Albumin 2.2 D Bili 0.05 T Bili 0.2 Alk Phos 85 ALT <3 AST 13 Albumin: Less than 3 - 1 point Skin Integrity: No pressure ulcers at this time - no points Fluid Accumulation: +1 - +2 Pitting edema - 2 points Diet Order: NPO % PO Intake: 100% Intake Difficulties: None - 0 points 5' 10 135 lbs UBW: 05/03/2025 137# per care everywhere BMI: 19.37 BMI Screening value: 18.5 to 20.9 - 0 points % Weight Loss: 1.6%/3 months Weight Loss Screening Value: Not significant - 0 points Education: No nutrition education indicated at this time. Comments: Pt tolerating diet without any complaints Number of Points: 3 Nutritional Plan of Care: Less than or equal to 6 points: At this time, patient is at low nutritionrisk. DTR to provide routine follow up. Will continue to follow, Jennifer Mitchell Cinetechnician Pager#[phone] Time spent on patient care: 15 minutes [1] No past medical history on file. * Judi Galvez OTСветлана/Flaca - 06/28/2025 2:45 PM EST Physical/Occupational Therapy Attempted treatment session this date; however, patient is pending neurosurgery recommendations forT10 compression fx/osteo. Will continue to follow per POC. Lorraine Mike PT, DPT Judi Galvez OTR/L Secure Chat for Questions * Joseph Weston PA-C - 06/28/2025 11:53 AM EST Images from the original note were not included. Neurosurgery Consult SPINE Patient Name: Manolo Roche Primary Care Physician: No primary care provider on file. 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 CT T/L spine at OSH reported to be unremarkable although images unavailable. Plan was for MRI T/L spine however MRI at OSH not compatible with patient's ventricular ICD so he was transferred to [facility] on 06/24. MRI completed today which revealed acute/subacute T10 compression fx with possible superimposed OM/discitisand S1/S2 OM with extension into the sacral ala as well as enhancement of ventral epidural fat vs abscess extending from L5-S1. Neurosurgery consulted for further evaluation. HE endorses back pain since a fall in mid May but was improving up until the last week. Takes tylenol for pain He walks with a walker at baseline. He feels unsteady on his feet d/t pain but denies LE numbness/weakness, no urinary or bowel incontinence. + urinary retention has kimble in place. Antiplatelet/Anticoagulant: ASA 81 Coags: none avilable, plt 400s PAST MEDICAL HISTORY: Medical History[1] PAST SURGICAL HISTORY: Surgical History[2] FAMILY HISTORY: Family History[3] SOCIAL HISTORY: Social History Occupational History Not on file Tobacco Use Smoking status: Not on file Smokeless tobacco: Not on file Substance and Sexual Activity Alcohol use: Not on file Drug use: Not on file Sexual activity: Not on file MEDICATIONS: insulin glargine 15 Units At Bedtime senna 8.6 mg BID otlwttb-gkjbzd-ovfksohm 24,000 Units 3x Daily with Meals polyethylene glycol 17 g Daily losartan 25 mg Daily spironolactone 25 mg Daily ceFAZolin 2,000 mg Q8H Antibiotic lidocaine 1 Patch Every 24 hours ferrous sulfate 325 mg 2x Daily AC insulin lispro 1-6 Units 3x Daily AC PARoxetine 40 mg Daily atorvastatin 40 mg At Bedtime tamsulosin 0.4 mg Daily metoprolol 12.5 mg At Bedtime acetaminophen 1,000 mg 3x Daily enoxaparin 40 mg Daily oxyCODONE 7.5 mg Q4H PRN oxyCODONE 5 mg Q6H PRN dextrose iv for hypoglycemia orderable 12.5 g PRN Or glucagon 1 mg PRN Or dextrose 15 g of glucose PRN Or dextrose 30 g of glucose PRN ondansetron 4 mg Q8H PRN melatonin 3 mg At Bedtime PRN docusate sodium 100 mg Daily PRN ALLERGIES: Allergies[4] COMPLETE REVIEW OF SYSTEMS: ROS 06/22 systems negative other than above LABS: CBC/PT/INR 06/28/2025 06/27/2025 06/26/2025 1:35 AM 5:43 AM 4:10 AM WBC 7.0 7.9 11.1 RBC 3.31 3.38 3.32 Hgb 8.8 9.1 8.7 Hct 26.6 27.1 26.8 MCV 80 80 81 RDW 15.3 15.3 15.6 Plt 463 435 421 Basic Metabolic Panel 06/28/2025 06/27/2025 06/26/2025 1:35 AM 5:43 AM 4:10 AM Na 133 134 135 K 4.6 4.2 4.2 Cl 103 103 105 CO2 24 22 22 Gap 11 13 12 Glu 409 280 115 BUN 21 22 24 Cr 0.95 0.92 0.96 Ca 8.0 8.1 8.1 PHYSICAL EXAM: Alert, conversational RUE: 5/5 shoulder abduction, elbow flexion/extension, life support technician, IO LUE: 5/5 shoulder abduction, elbow flexion/extension, life support technician, IO RLE: 5/5 hip flexion, knee flexion/extension, PF/DF, EHL LLE: 5/5 hip flexion, knee flexion/extension, PF/DF, EHL Sensation: intact bilat UE and LE Castellanos's: negative Clonus: negative Babinski: mute PHYSICAL EXAMINATION: Vital signs reviewed General appearance: well appearing, in chair Skin: warm, dry Head: Normocephalic Nose/Sinuses: Nares normal. Neck: supple, trachea midline Lungs: chest symmetric, normal respiratory rate and rhythm Heart: NSR on tele monitor Abdomen: soft, nontender Extremities: Extremities normal. No deformities or edema Neuro: above RADIOLOGY: MRI T/L wwo - Acute/subacute compression fracture of T10 with associated marrow edema and enhancement extending into the inferior endplate of T9. Superimposed osteomyelitis cannot be excluded given the concurrent bacteremia. 2. Thin signal abnormality throughout the dorsal epidural space. This may relate to normal epidurallipomatosis with incomplete fat saturation or superimposed edema within the epidural fat. Epidural hematoma or an epidural collection is a less likely possibility. Correlate with CT. Diffuse enhancement and marrow edema within the S1 sacral segment extending into the sacral ala and minimally S2 segment. Differential includes osteomyelitis or edema and enhancement from a fracture. Metastasis is felt less likely. Correlate with CT. Mild nonspecific enhancement within L5. Small structure in the ventral epidural space at L5. This may relate to inflammation surrounding epidural fat and the venous plexus. An epidural abscess is felt less likely. SPINE CLASSIFICATION: 1. Spinal fracture level: Thoracic: T10 2. Neurological level of injury: None 3. Fracture morphology: A1: Wedge compression 4. Facet fracture: No BL: Bilateral injury: No 5. Neurological status: N0: Intact N+: Ongoing compression with neurological deficit: No 6. Clinical modifiers: None 7.Previous spine surgery: No 8. 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 MRI T/L spine with T10 compressionwith possible osteomyelitis for which NSGY spine was consulted -Medicine primary -Standing T / L XR when able -Ensure pre op labs complete (Type and Screen, PT/INR, PTT) -antibiotics per ID -Further recommendations pending completion of imaging, will follow less actively for imaging -Remainder per primary Patient was seen and examined within 30 minutes of consultation and was reviewed with Andrea (staff)who agrees with the above. Please call anytime with questions or concerns. Joseph Weston PA-C Neurological Surgery Pager: [phone] 06/28/2025 - 11:53 AM Split/Shared Documentation I approve the management plan for this patient and take responsibility for the plan as documented. Independent Interpretation of Tests Performed by Another Physician/ROSA: I personally performed, reviewed, and interpreted MRI with findings of T10 compression fx . Joseph Weston PA-C [1] No past medical history on file. [2] No past surgical history on file. [3] No family history on file. [4] Not on File Cosigned by Vargas Mendez MD at 06/30/2025 5:15 AM EST * Alirio Mitchell MD - 06/28/2025 10:21 AM ESTAssociated Order(s): IP GASTROENTEROLOGY CONSULT Images from the original note were not included. Department of Gastroenterology and Hepatology Consult H&P Note GI Attending Physician: Dr. Alirio Mitchell MD Patient: Manolo Roche Location: 8-510/1 Reason for Consult: Villagomez's esophagus, stomach ulcer perforation s/p procedure/surgery evaluate for EGD prior to LINDA given downtrending hgb HPI Manolo Roche is a 89 year old male history of heart failure with reduced ejection fraction, ICD inplace, history of GI bleed from peptic ulcer disease ? Required surgical intervention, ? History ofBarrett's esophagus (several years ago), transferred from [facility] to [facility] for evaluation of diskitis- osteomyelitis and ICD compatible MRI testing. GI is consulted for evaluation of anemia He does not recall having the diagnosis of Villagomez's esophagus He reports having upper GI bleed several years ago, for which he required surgical intervention at [facility] He is currently not taking PPI, nor had a repeat surveillance endoscopy for Villagomez's Denies melena, denies NSAID use Denies abdominal pain, nausea, vomiting, dysphagia, odynophagia Denies diarrhea. Appetite is good, weight has been stable Denies alcohol or recreational drug use Denies personal or family history of GI cancers Review Of Systems Positives as noted in HPI. All other systems were reviewed and negative. GI Procedures - at outside hospital several years ago, we could not find reports on Care everywhere EUS 2018 - Marino Poe MD Impression: Diffusely dilated main pancreatic duct with associated cystic lesion in head of pancreas. FNA performed Medical and Surgical Histories Medical History[1] Surgical History[2] Family History: family history is not on file. Social History Social History[3] insulin glargine, 15 Units, Subcutaneous, At Bedtime senna, 8.6 mg, Oral, BID ggvbjoz-hceklr-fhrgiavz, 24,000 Units, Oral, 3x Daily with Meals polyethylene glycol, 17 g, Oral, Daily losartan, 25 mg, Oral, Daily spironolactone, 25 mg, Oral, Daily ceFAZolin, 2,000 mg, Intravenous, Q8H Antibiotic lidocaine, 1 Patch, Transdermal, Every 24 hours ferrous sulfate, 325 mg, Oral, 2x Daily AC insulin lispro, 1-6 Units, Subcutaneous, 3x Daily AC PARoxetine, 40 mg, Oral, Daily atorvastatin, 40 mg, Oral, At Bedtime tamsulosin, 0.4 mg, Oral, Daily metoprolol, 12.5 mg, Oral, At Bedtime acetaminophen, 1,000 mg, Oral, 3x Daily enoxaparin, 40 mg, Subcutaneous, Daily PRN medications: oxyCODONE, oxyCODONE, dextrose iv for hypoglycemia orderable OR glucagon OR dextrose OR dextrose, ondansetron, melatonin, docusate sodium Physical Exam BP 134/69 (BP Location: right arm) Pulse 64 Temp 97.8 ??F (36.6 ??C) (Oral) Resp 18 Ht 5' 10 (1.778 m) Wt 135 lb (61.2 kg) SpO2 98% BMI 19.37 kg/m?? General: well-nourished, well-groomed, pleasant, NAD Pulm: no increased WOB on room air, CTAB Card: RRR, no murmurs Abdomen: soft, nontender, nondistended, normal bowel sounds Extremities: no EMILIE, no gross deformity Labs CBC/PT/INR 06/28/2025 06/27/2025 06/26/2025 1:35 AM 5:43 AM 4:10 AM WBC 7.0 7.9 11.1 RBC 3.31 3.38 3.32 Hgb 8.8 9.1 8.7 Hct 26.6 27.1 26.8 MCV 80 80 81 RDW 15.3 15.3 15.6 Plt 463 435 421 Basic Metabolic Panel 06/28/2025 06/27/2025 06/26/2025 1:35 AM 5:43 AM 4:10 AM Na 133 134 135 K 4.6 4.2 4.2 Cl 103 103 105 CO2 24 22 22 Gap 11 13 12 Glu 409 280 115 BUN 21 22 24 Cr 0.95 0.92 0.96 Ca 8.0 8.1 8.1 Hepatic/Biliary/Pancreas No lab values to display. PT/INR No lab values to display. 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 Much of his care at different hospitals in [place] - without access to his op reports on Care everywhere Ddx: Peptic ulcer disease, ?esophageal adenocarcinoma, worsening Villagomez's +/- dysplasia, Erosive esophagitis, gastritis RECOMMENDATIONS Plan for EGD to evaluate Anemia [Hgb dropped from 11 in 03/2025 to 9 in 06/2025] Continue IV PPI BID The patient expressed good understanding of the above discussion and plan. All questions were answered to his full satisfaction. Ruddy Bravo MD, MS Gastroenterology Fellow. Consult Pager [phone] Discussed with GI attending, Dr. Alirio Mitchell MD Primary team updated yes. Thank you for involving us in the care of this patient. I appreciate the excellent care from the nursing staff, and ict support technicians. Dictated using voice recognition software. Document may contain errors not identified ATTENDING NOTE: The patient was personally seen and evaluated on 06/28/2025. The case was discussed in detail with the fellow; including, but not limited to the presenting complaint, past history, physical findings,labs and radiological findings. The patient was counseled on the possible differential diagnoses and testing needed to arrive at a diagnosis or a treatment plan. The above notes reflect the results of these discussions and my personal involvement in the case. Alirio Mitchell MD Department of Gastroenterology & Hepatology [facility] [1] No past medical history on file. [2] No past surgical history on file. [3] * Breana Santiago, OT - 06/27/2025 10:18 AM EST Occupational Therapy Attempt Per MD, will defer OT until after MRI at 12:00 to avoid exacerbation of back pain. Will follow up per POC. Reattempted to see pt for OT at 13:25, pt off floor for MRI. Breana Santiago MOT, OTR/L * Lorraine Mike, PT - 06/27/2025 9:29 AM EST Physical Therapy Attempted treatment session this AM; however, patient immediately states goodbye when therapist introduces self. Patient not receptive to education and encouragement. Patient stating he is in too much pain and can't move. Patient agreeable to therapist returning later this AM after pain medication has taken full effect. Will continue to follow per POC. Addendum: per MD, please defer therapy until after MRI at 12 pm to avoid exacerbation of pain. Addendum: attempted treatment session at 1:30 pm; however, patient off the unit at MRI. Lorraine Mike, PT, DPT * Lorraine Mike PT - 06/25/2025 3:32 PM ESTAssociated Order(s): IP PHYSICAL THERAPY SERVICE REQUEST PHYSICAL THERAPY ACUTE EVALUATION Referral received, chart reviewed. Patient seen from 1:58 pm to 2:11 pm on 8E unit for 13 minutes. 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 12 steps to bedroom/bathroom with rails. 12 down to basement with rails. Assistance available: 01/02 Equipment available: quad cane, RW, grab bar, shower chair OBJECTIVE: Appearance: Supine in bed Hospital gown Hep-locked IV Behavior: Awake Alert Cooperative Oriented x 3 Follows simple step commands consistently Pain: Site/Location: back and LE's ; Pain Scale: 8'/10 Pain Relief Interventions Implemented: Positioning, Rest, Relaxation Training, and RN aware and reports patient received medication according to time schedule Passive ROM: Bilateral LE WFL Strength/Active ROM: Bilateral LE WFL Mobility: Assistance level N/A Dep Max Mod Min CGA CS Sup DS Mod I I Comments Supine to sit X Overall for LE and trunk Sit to/from stand X EOB to RW Ambulation X 40 feet with RW Slow speed, short strides, grossly steady Stairs X NT Seated Balance X Static: Good EOB Dynamic: NT Standing Balance X X Static: Fair with RW Dynamic: Fair with RW Endurance: Fair Patient Education: Instructed Patient in roles, goals, treatment plan: demonstrated good verbal understanding. Educated patient NOT to stand or mobilize without staff assist to minimize fall risk and improve safety Encouraged patient to sit upright in chair x 1 hr Patient up in chair with call light in reach. Chair alarm intact. Family at bedside. client technical support associate entering room. DME: With Patients permission ordered no equipment via [employer] Order. If any questions contact [facility] DME Provider at [phone]. 6 Clicks Basic Mobility PT 06/25/25 Difficulty turning over in bed 3 Difficulty sitting down and standing up from a chair with arms 3 Difficulty moving from lying on back to sitting on the side of the bed 2 Help from another person moving to and from bed to a chair 3 Help from another person to walk in hospital room 3 Help from another person climbing 3-5 steps with a railing 2 PT 6 Clicks Score 16 6 Click Score Guidelines: 1 - Total = Requires total assistance, or cannot do at all. 2 - A lot = Requires a lot of help (maximun to moderate assistance) Can use assistive devices. 3 - A little = Requires a little help (supervision, minimal assistance) Can use assistive devices. 4 - None = Does not require any help and does the activity independently. Can use assistive devices. Progressive Mobility Protocol Score: Level 4 ASSESSMENT: Manolo Roche is a 89 year old male admitted with LBP and diagnosed with MSSA bacteremia and anemia. At time of evaluation patient was able to mobilize and ambulate at a CGA to mod A level. Feel patient is functioning near his baseline level. Therefore, Patient is functionally appropriate for discharge home once medically cleared. Will continue to follow patient while in hospital as appropriate. Problems: Pain Decreased ROM/strength Decreased functional mobility Decreased endurance Decreased balance Decreased education in exercise/precautions Impaired safety awareness Rehabilitation Potential: Good Goals (to be achieved by discharge from acute care): Patient to achieve acceptable level of pain control to participate in Therapy sessions. Patient to improve supine to sit to min A Patient to demonstrate sit to stand transfer to/from multi-level surface mod I with RW Patient to ambulate 120 feet with RW, mod I Patient to ascend/descend 4 steps with railing (s), CS Patient to demonstrate appropriate stamina and balance to attain above functional goals without LOBor SOB. PLAN OF CARE: Frequency: Patient to be seen 3-5 times a week Interventions: Functional mobility ROM/Strengthening Home exercise program Discharge planning and equipment ordering as needed Patient /Family education The evaluation findings and treatment plan were discussed with the patient. The patient indicated understanding and agreement with the plan. Lorraine Mike, PT, DPT NA = Not Assessed, I = Independent, WA = Modified Independent, Sup = Supervised, Set up = Physical Assistance for Set-up Only, Min = Minimal Assistance, Mod = Moderate Assistance, Max = Max assistance; Dep = Dependent; AROM = Active Range of Motion; PROM = Passive Range of Motion; MMT = Manual Muscle Test; LE = Lower Extremity * Alvina Joy, OT - 06/25/2025 3:05 PM ESTAssociated Order(s): IP OCCUPATIONAL THERAPY SERVICE REQUEST OCCUPATIONAL THERAPY INITIAL EVALUATION Patient seen from 1359 to 1411 on GC8E unit for 12 minutes. Reason for Admit: admit from OSH for MSSA bacteremia Diagnosis: MSSA bacteremia Acute low back pain Postop urinary retention S/p TURP Precautions/Activity Order: high falls, delirium, DNR-CCA-DNI, carbohydrates 60 grams/meal, progressive mobility Procedures this admit: n/a Past Medical and Surgical History: PMH: Medical History[1] PSH: Surgical History[2] SUBJECTIVE: Patient Subjective: Join the democrat! (After therapist arrival, EP and XR present to see pt) Patient Identified Goal(s): agreeable to therapy evaluation Home Living Situation Prior Functional Status: Independent Living independent with Activities of Daily Living Independent Driving Independent Ambulation with either quad cane vs RW (depends on how pt's feeling) Shares IADLs with 1 fall last 6 months Assistance Available at Home: lives with who can provide 24/7 assist Patient lives in a 2 story home 2-3 stairs to enter with rail. Full Bathroom on 1 level Bedroom on 2 level. Equipment available at home: RW, quad cane, shower chair, GB in shower OBJECTIVE: Patient Identification: patient's id band and date of . Risks and benefits of occupational therapy: Patient informed of risks and benefits of treatment Appearance: supine in bed on arrival, hospital gown + pj pants, kimble, hep- locked IV Alertness: WFL Affect: WNL Cooperation/Behavior: Appropriate dialogue with therapist and Pleasant and cooperative Communication: WFL Pain: Pain ratin/10, Location: low back/BLEs Pain Relief Interventions Implemented: RN aware and reports patient received medication according to time schedule Self Care: Assistance Level Dep Max Mod Min CG CS DS WA I Set-Up Comment Feeding x Grooming/Hygiene x Anticipate standing at sink Bathing:UB x Simulated with functional reach Bathing:LB x Anticipate assist for distal BLEs/buttocks Dressing:UB x Simulated to don shirt Dressing: LB x Anticipate to don pants Toileting x Kimble Transfers/Bed Mobility: Assistance Level Dep Max Mod Min CG CS DS WA I Set-Up Comment Toilet Transfers x Anticipate based on bed transfer Bed Transfers x Sit to stand from EOB to RW. Short distance functional mobility within room with RW, grossly steady, small steps, no overt LOB noted. Stand to sit in chair, cues for hand placement. Bed Mobility x Supine to sit EOB, required mod A to advance BLEs to EOB (reports assists at baseline) Patient seated in chair end of session with chair alarm on, call light and phone within reach and all current needs met. Instructed pt to use call light for nursing assist for return to bed or for mobility needs; pt voiced understanding. Family at bedside. Endurance for Self Care: Good Static Sitting Balance: WFL Dynamic Sitting Balance: N/T UE Motor: BUE AROM WFL. MMT not formally assessed but appears at least 3/5 throughout Vision/Perception: WFL Cognition: Orientation: Oriented to person, place, and date Follows Commands: one step commands Attention: WNL Memory: WFL Problem Solving: Needs further assessment Safety/Judgement: insight beginning to develop Sequencing: Able to sequence simple ADLs without cues. Other Specialized Tests: None Patient/Family Education: Instructed patient in roles of therapy, OOBTC for 1 hour, Not to mobilizewithout staff, safe transfer techniques Patient up in chair with call light in reach. Chair alarm intact. DME: With Patients permission ordered no equipment via [employer] Order. If any questions contact [facility] DME Provider at [phone]. 6 Clicks Daily Activity OT 06/25/25 Help from another person Eating meals 4 Help from another person taking care of personal grooming 3 Help from another person bathing 3 Help from another person putting on and taking off regular upper body clothing 3 Help from another person putting on and taking off regular lower body clothing 3 Help from another person toileting 1 OT 6 Clicks Score 17 6 Click Score Guidelines: 1 - Unable = Total/Dependent Assist 2 - A lot = Max/Moderate Assist 3 - A little = Minimum/Contact Guard Assist/Supervision 4 - Non = Modified [place]/Independent ASSESSMENT: Patient is functionally appropriate for discharge home once medically cleared. Will continue to follow patient while in hospital as appropriate. Recommend PRN family/caregiver assist for safe completion of ADLs/IADLs. Rehabilitation Potential: Good Problem List: decreased ADLs, decreased endurance, decreased functional transfers/mobility, impaired balance, decreased home management tasks/IADLs, decreased functional activity tolerance, and increased pain Goals (to be achieved by discharge from acute care): Patient will perform grooming standing at sink with Modified Independent Patient will dress upper body with Modified Independent Patient will dress lower body with Modified Independent Patient will perform bed mobility with Modified Independent Patient will perform bathing with Modified Independent Patient will perform toileting with Modified Independent Patient will perform bed transfers with Modified Independent Patient will perform commode transfers with Modified Independent Report reduced pain level to allow for participation in ADL/IADL PLAN: Manolo Roche will be seen 1-3 times a week. Treatment to include: Functional AROM/Strengthening, functional mobility training, ADL retraining, functional endurance activities, home management retraining, functional task simulation, adaptive equipment / compensatory strategy training, patient / family education and discharge planning, and pain Management able to discuss the evaluation findings and treatment plan with the patient/family. The patient/family did participate in the development of plan and goals. Alvina Joy OTR/L NA = Not Assessed, I = Independent, WA = Modified Independent, Sup = Supervised, Set up = Physical Assistance for Set-up Only, Min = Minimal Assistance, Mod = Moderate Assistance, Max = Max assistance; Dep = Dependent; AROM = Active Range of Motion;PROM=Passive Rangeof Motion; MMT = Manual Muscle Test; UB = Upper Body; LB = Lower Body [1] No past medical history on file. [2] No past surgical history on file. * Vidal Helm MD - 06/25/2025 8:29 AM ESTAssociated Order(s): IP INFECTIOUS DISEASE CONSULT Images from the original note were not included. 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 Patient was initially doing okay but his back pain progressively got worse two weeks ago. He reports some lower extremity weakness and tingling, otherwise review of system is negative. No recent IV lines. No hx of IV drug use. Medical records from OSH not available. Per chart review here, patient was admitted to the OSH and was started empirically on Zosyn. Hewas then switched to Cefazolin when his blood and urine cx there ultimately grew MSSA. He underwentXRs and CT thoracic/ lumbar spine without contrast there (report not available). Per chart review, XR thoracic/lumbar spine did not show any acute process. CT A/P showed bilateral hydroureteronephrosis with bladder distension; kimble was placed and drained 500 cc urine. He was scheduled for further evaluation with an MRI thoracic/lumbar spine however, the MRI machine there was not compatible with his ICD and decision was made to transfer him here. New blood cultures are ordered and pending. TTE on 06/25 showed no gross vegetations but unable to exclude due intrinsic valve disease and cardiac electrical lead. Micro: 06/20 Blood cx MSSA in OSH (partial documentation available) 06/20 Urine cx MSSA in OSH (partial documentation available) 06/24 Blood cxs pending Past Medical History: Medical History[1] Past Surgical History: Surgical History[2] Allergies: Allergies[3] Medications: Current Facility-Administered Medications Medication Dose Route Frequency Provider Last Rate Last Admin losartan (COZAAR) tablet 25 mg Oral Daily Sudarshan Lovett MD 25 mg at 06/25/25 0812 spironolactone (ALDACTONE) tablet 25 mg Oral Daily Sudarshan Lovett MD 25 mg at 06/25/25 0812 insulin glargine (LANTUS) 100 UNIT/ML injection 15 Units Subcutaneous At Bedtime Sudarshan Lovett MD 15 Units at 12/14/25 2300 ceFAZolin Sodium (ANCEF) 2,000 mg in sodium chloride 0.9 % 100 mL (V2B) 2,000 mg Intravenous Q8H Antibiotic Sudarshan Lovett MD 200 mL/hr at 06/25/25 0600 2,000 mg at 06/25/25 0600 lidocaine (LIDODERM) 4 % patch 1 Patch Transdermal Every 24 hours Sudarshan Lovett MD 1 Patch at 06/24/25 214 ferrous sulfate 325 mg (65 mg elemental) tablet 325 mg Oral 2x Daily AC Sudarshan Lovett MD 325 mgat 06/25/25 08 dextrose 10 % iv infusion 12.5 g Intravenous PRN Sudarshan Lovett MD Or glucagon (GLUCAGEN) 1 MG injection 1 mg Subcutaneous PRN Sudarshan Lovett MD Or dextrose (GLUTOSE) 40 % oral gel 15 g of glucose Buccal PRN Sudarshan Lovett MD Or dextrose (GLUTOSE) 40 % oral gel 30 g of glucose Buccal PRN Sudarshan Lovett MD insulin lispro (HumaLOG) 100 UNIT/ML injection 1-6 Units Subcutaneous 3x Daily AC Sudarshan Lovett MD PARoxetine (PAXIL) tablet 40 mg Oral Daily Sudarshan Lovett MD 40 mg at 06/25/25 08 gnadqen-oqgbyx-jjaxaeil (CREON) 59684 units capsule 48,000 Units Oral 3x Daily with Meals Sudarshan Lovett MD 48,000 Units at 06/25/25811 atorvastatin (LIPITOR) tablet 40 mg Oral At Bedtime Sudarshan Lovett MD 40 mg at 06/24/252140 aspirin EC tablet 81 mg Oral Daily Sudarshan Lovett MD 81 mg at 06/25/25 08 tamsulosin (FLOMAX) capsule 0.4 mg Oral Daily Sudarshan Lovett MD 0.4 mg at 06/25/25811 metoprolol (TOPROL-XL) 24 hour tablet 12.5 mg Oral At Bedtime Sudarshan Lovett MD 12.5 mg at 06/24/252140 acetaminophen (TYLENOL) tablet 1,000 mg Oral 3x Daily Sudarshan Lovett MD 1,000 mg at 06/25/25 0812 ondansetron (ZOFRAN) 4 MG/2ML injection 4 mg Intravenous Q8H PRN Sudarshan Lovett MD melatonin tablet 3 mg Oral At Bedtime PRN Sudarshan Lovett MD docusate sodium (COLACE) capsule 100 mg Oral Daily PRN Sudarshan Lovett MD enoxaparin (LOVENOX) 40 MG/0.4ML injection 40 mg 40 mg Subcutaneous Daily Sudarshan Lovett MD 40 mg at 06/25/25 0812 Family History: Family History[4] Social History: Social History[5] Vitals: Vitals: 06/25/25 0615 BP: 141/89 Pulse: 58 Resp: 18 Temp: 97.4 ??F (36.3 ??C) SpO2: 96% Physical Exam: General: Alert, awake and oriented Heart: Regular rythm, no murmurs Lungs: Clear to auscultation bilaterally Abdomen: soft, not distended nor tender Extremities: No lower extremity edema bilaterally. Significant localized swelling noted in this left forearm with no fluctuance or drainage seen Skin: No rashes noted Labs: CBC (last 3 years, up to 8 values) 06/24/2025 8:52 PM WBC 9.8 RBC 4.00 Hgb 10.4 Hct 32.0 MCV 80 RDW 15.9 Plt 425 BMP (last 3 years, up to 8 values) 06/24/2025 8:52 PM Na 132 K 4.8 Cl 103 CO2 21 Gap 13 Glu 330 BUN 25 Cr 1.15 Ca 8.0 eGFR 61 Imaging: XRs and CTs thoracic and lumbar spine done in OSH (report not available in the chart) TTE (06/25/2025): No evidence of a thrombus in the left ventricular apex. A mass is seen in the right ventricle which is most consistent with a electrical lead. No gross vegetations but unable to exclude due intrinsic valve disease and cardiac electrical lead. 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 XR and CT thoracic/lumbar spine there did not show any acute process (report not available). Per chart review, CT A/P showed bilateral hydroureteronephrosis with urinary retention s/p kimble catheter placement. He was transferred here for fur ther evaluation with an MRI thoracic/lumbar spine (machine there not compatible with his ICD). New blood cultures are ordered and pending. TTE on 06/25 showed no gross vegetations but unable to exclude due intrinsic valve disease and cardiac electrical lead. Unclear where got his MSSA from; could be secondary to his recent TURP procedure. Agree with Cefazolin for now, pending repeat blood cultures and further evaluation with MRI. Patient has significant localized swelling his his left forearm which warrants further evaluation with an US. Impression: # MSSA bacteremia in OSH # Significant lower back pain following fall # HFrEF with ICD in place Recommendations: - Continue IV Cefazolin, adjusted to his CrCl - Please repeat blood cultures every 48 hours to document clearance of bacteremia - Awaiting MRI thoracic/ lumbar spine result - Would keep a low threshold for spine surgery evaluation - We recommend a left forearm US for workup of swelling - ID will continue to follow Findings and recommendations discussed with the primary team and Infectious Disease Attending Dr. Emile Steele MD PGY-IV Infectious Disease Fellow [1] No past medical history on file. [2] No past surgical history on file. [3] Not on File [4] No family history on file. [5] Social History Socioeconomic History Marital status: Unknown Social Drivers of Health Food Insecurity: Unknown (06/24/2025) Hunger Vital Sign Worried About Running Out of Food in the Last Year: Never true Transportation Needs: Unknown (06/24/2025) PRAPARE - Transportation Lack of Transportation (Medical): No Intimate Partner Violence: Unknown (06/24/2025) Humiliation, Afraid, Rape, and Kick questionnaire Emotionally Abused: No Cosigned by Jacqueline Baptiste MD at 06/25/2025 8:08 PM EST Associated attestation - Jacqueline Baptiste MD - 06/25/2025 8:08 PM EST Images from the original note were not included. Patient is an 89-year-old man with a past medical history of HFrEF, CAD status post PCI, ICD, HTN, DM, CKD, status post pancreatectomy for IPMN, BPH s/p recent TURP, currently admitted with MSSA bacteremia suspected from urinary tract source in the setting of urinary retention with hydronephrosis status post Kimble catheter, concern for spine infection given back pain. Recommend continue cefazolin, await MRI T/L spine, consider spine surgery consult. Following repeat blood cultures, if persistent bacteremia will need LINDA to further evaluate for cardiac device endocarditis. ID will continue to follow, discussed with patient's and granddaughter at bedside. Teaching Physician Note: I saw and evaluated the patient. I personally obtained the smyth and critical portions of the historyand physical exam. I reviewed the fellow's documentation and discussed the patient with the fellow.I agree with the fellow's medical decision making as documented in the fellow's note. Jacqueline Baptiste MD Pager [phone] or by [facility] decision-making in this case included the following: I personally obtained corroborating history from a third democrat (family member, outside facility etc) while evaluating patient. documented in this encounter Miscellaneous Notes * Home Health Care - Vivian Astorga - 07/03/2025 1:58 PM EST [facility] Home infusion education provided to pts and grandson. They feel comfortable independently administering infusion at home. Claudia Gutierrez will provide home care - arrangements by CM. [facility] will be servicing this patient [phone]. [facility] will deliver to pts home this evening. Vivian Astorga RN Clinical Soil Conservation Aide [facility] [phone] or [phone] * Discharge Planning Note - Lana Rivas RN - 07/03/2025 11:10 AM EST Case Management CM attended multidisciplinary rounds for this patient and patient is medically ready for discharge at this time. Pts EDOD is 07/03/2025. CM is aware that patient will discharge home with [facility] for IV [facility] and [facility]. Cm is still waiting to confirm start of care for the patient with the [facility]. Pt has his PICC line. Pt still needs education with [facility] prior to discharge. CM will continue to follow for any other additional discharge planning needs that may arise. ADDENDUM: CM verified with Rachelle from [facility] that the SOC will be tomorrow afternoon. CM to update family. Lana Rivas MSN, RN Inpatient Asphalt Paving Supervisor [address] [place] [address] Cell [phone] * Assessment & Plan Note - Joseph Garcia MD - 07/02/2025 2:21 PM ESTAssociated Problem(s): MSSA bacteremia Here with MSSA bacteremia, most likely related to recent genitourinary instrumentation (TURP). Thisis occurring in the setting of subacute back pain and presence of an implantable cardiac device. MRI spine with acute/subacute compression fx of T10 unable to rule out vertebral OM. S/p LINDA awaiting official results. - TTE on admission negative for endocarditis - LINDA 07/02 pending - last Bcx 06/28 with NGTD - ID consulted - cefazolin - ertapenum - await final recs - will need PICC likely - remove kimble 07/02 * Assessment & Plan Note - Joseph Garcia MD - 07/02/2025 2:21 PM ESTAssociated Problem(s): Presence of implantable cardioverter-defibrillator (ICD) Here with MSSA bacteremia, most likely related to recent genitourinary instrumentation (TURP). Thisis occurring in the setting of subacute back pain and presence of an implantable cardiac device. MRI spine with acute/subacute compression fx of T10 unable to rule out vertebral OM. S/p LINDA awaiting official results. - TTE on admission negative for endocarditis - LINDA 07/02 pending - last Bcx 06/28 with NGTD - ID consulted - cefazolin - ertapenum - await final recs - will need PICC likely - remove kimble 07/02 * Assessment & Plan Note - Joseph Garcia MD - 07/02/2025 2:21 PM ESTAssociated Problem(s): Postoperative urinary retention (Resolved 07/03/2025) Here with MSSA bacteremia, most likely related to recent genitourinary instrumentation (TURP). Thisis occurring in the setting of subacute back pain and presence of an implantable cardiac device. MRI spine with acute/subacute compression fx of T10 unable to rule out vertebral OM. S/p LINDA awaiting official results. - TTE on admission negative for endocarditis - LINDA 07/02 pending - last Bcx 06/28 with NGTD - ID consulted - cefazolin - ertapenum - await final recs - will need PICC likely - remove kimble 07/02 * Assessment & Plan Note - Joseph Garcia MD - 07/02/2025 2:21 PM ESTAssociated Problem(s): S/P TURP (transurethral resection of prostate) Here with MSSA bacteremia, most likely related to recent genitourinary instrumentation (TURP). Thisis occurring in the setting of subacute back pain and presence of an implantable cardiac device. MRI spine with acute/subacute compression fx of T10 unable to rule out vertebral OM. S/p LINDA awaiting official results. 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 Follows with endocrinology at [facility]. Labile BG. Home prandial novolog 5 + sliding scale insulin and glargine 12 from 15 recently. 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 Follows with endocrinology at [facility]. Labile BG. Home prandial novolog 5 + sliding scale insulin and glargine 12 from 15 recently. - uncontrolled; A1C 12.8% in 03/2025 - incr lantus 12 at bedtime - incr lispro 5 units TID - SSI * Assessment & Plan Note - Joseph Garcia MD - 07/02/2025 2:21 PM ESTAssociated Problem(s): HFrEF (heart failure with reduced ejection fraction) Last EF 35% 06/2025. - stable; no active chest pain; no signs of volume overload - continue home ASA 81 mg daily - continue home atorvastatin 40 mg HS - continue home losartan 25 mg daily - continue home toprol 12.5 mg HS - continue home spironolactone 25 mg daily - not on SGLTi (clarify with endo/cards outpatient) * Assessment & Plan Note - Joseph Garcia MD - 07/02/2025 2:21 PM ESTAssociated Problem(s): CAD (coronary artery disease) Last EF 35% 06/2025. - stable; no active chest pain; no signs of volume overload - continue home ASA 81 mg daily - continue home atorvastatin 40 mg HS - continue home losartan 25 mg daily - continue home toprol 12.5 mg HS - continue home spironolactone 25 mg daily - not on SGLTi (clarify with endo/cards outpatient) * Assessment & Plan Note - Joseph Garcia MD - 07/02/2025 2:21 PM ESTAssociated Problem(s): Essential hypertension Last EF 35% 06/2025. - stable; no active chest pain; no signs of volume overload - continue home ASA 81 mg daily - continue home atorvastatin 40 mg HS - continue home losartan 25 mg daily - continue home toprol 12.5 mg HS - continue home spironolactone 25 mg daily - not on SGLTi (clarify with endo/cards outpatient) * Assessment & Plan Note - Joseph Garcia MD - 07/02/2025 2:21 PM ESTAssociated Problem(s): Hyperlipidemia Last EF 35% 06/2025. - stable; no active chest pain; no signs of volume overload - continue home ASA 81 mg daily - continue home atorvastatin 40 mg HS - continue home losartan 25 mg daily - continue home toprol 12.5 mg HS - continue home spironolactone 25 mg daily - not on SGLTi (clarify with endo/cards outpatient) * Assessment & Plan Note - Joseph Garcia MD - 07/02/2025 2:21 PM ESTAssociated Problem(s): Stage 3 chronic kidney disease (HCC) - initially presented to [facility] with an DENISHA (Scr 1.7); since resolved - Scr of 1.15 on presentation here - renally dose medications * Assessment & Plan Note - Joseph Garcia MD - 07/02/2025 2:21 PM ESTAssociated Problem(s): Anemia Hgb 10.4 on admission -> 8.8 No active signs of bleeding Iron 19 iron sat 8% hemolysis labs negative b12, folate wnl - iron supplement outpatient after infection resolves - EGD 06/29 normal * Assessment & Plan Note - Joseph Garcia MD - 07/02/2025 2:21 PM ESTAssociated Problem(s): Left arm swelling (Resolved 07/03/2025) Likely 2/2 infiltrated IV at OSH Improving with elevation LUE DVT US negative for DVT * Assessment & Plan Note - Joseph Garcia MD - 07/02/2025 2:21 PM ESTAssociated Problem(s): Acute midline low back pain without sciatica MRI spine with acute/subacute compression fx of T10 unable to rule out vertebral OM. Back pain slowly improving. - tylenol 1g TID - oxy 5-7.5 q6h prn - follow up with neurosurgery in clinic with Dr. Mendez in 2-4 weeks -no restrictions from NSGY standpoint * Discharge Planning Note - Lana Rivas RN - 07/02/2025 2:09 PM EST Case Management CM attended multidisciplinary rounds for this patient and patient is not medically read for discharge at this time. Pts EDOD is unknown at this time. CM is aware that this patient will require hotel guest service agent IV ATB, Pts LINDA to rule out cardiac involvement is currently pending. Pt has [facility] for infusion services, and [facility]. Pts Teachable caregiver is his . Cm reached ou to Vivian Astorga via secure [employer] for discharge plans CM will continue to follow for discharge planning needs. 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 Follows with endocrinology at [facility]. 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 Follows with endocrinology at [facility]. Labile BG - uncontrolled; A1C 12.8% in 04/2025 - lantus 8 units at bedtime while npo (home 10 units likely needs 12-14) - lispro sliding scale insulin TID AC - lispro 2 units TID - glucose checks TID AC + HS - hypoglycemia protocol - carb controlled diet -consider endocrine c/s in AM * Assessment & Plan Note - Maribel Romero MD - 07/01/2025 12:06 PM EST Associated Problem(s): Anemia Hgb 10.4 on admission -> 8.8 No active signs of bleeding Iron 19 iron sat 8% hemolysis labs negative b12, folate wnl - iron supplement outpatient after infection resolves - EGD 06/29 normal * Assessment & Plan Note - Maribel Romero MD - 07/01/2025 12:04 PM EST Associated Problem(s): MSSA bacteremia 89 y/o M with PMH of HFrEF s/p biventricular ICD, CAD s/p PCI, CKD3, and BPH s/p recent TURP admitted with MSSA bacteremia, most likely related to recent genitourinary instrumentation. This is occurring in the setting of subacute back pain and presence of an implantable cardiac device, both of which raise concern for deep-seated infection, such as vertebral osteomyelitis, discitis, and ICD-associated infection. Transferred to [facility] for advanced imaging and definitive source evaluation. Arrives having already received 2 full days of appropriate antibiotic coverage. - admit to 8E - consulting ID given MSSA + ICD + possible OM/discitis - TTE on admission negative for endocarditis - EP approve ICD compatibility for MRI - continue cefazolin - ID consulted rec c/w cefazolin, repeat Bcx2 due to minimal draw on admission, linda plan for 06/28 deferred to evaluate EGD prior - MRI T/L spine 06/27 showing T10 compression with possible osteomyelitis , Lumbar OM - Spine ortho consulted, rec standing T/L-spine xray - Bcx2 06/24 07/13 GPC - Repeat Bcx2 06/26 07/13 GPC - Repeat Bcx2 06/28 NGTD - oxy 5/oxy 7.5 mod/severe pain, dilaudid 0.2 for breakthrough - GI consulted for EGD 06/29 unremarkable - LINDA tentatively planned for Monday 07/02, npo midnight Wednesday - PICC line Wednesday if LNIDA negative and Bcx 06/28 negative * Assessment & Plan Note - Maribel Romero MD - 07/01/2025 12:04 PM EST Associated Problem(s): Presence of implantable cardioverter-defibrillator (ICD) 89 y/o M with PMH of HFrEF s/p biventricular ICD, CAD s/p PCI, CKD3, and BPH s/p recent TURP admitted with MSSA bacteremia, most likely related to recent genitourinary instrumentation. This is occurring in the setting of subacute back pain and presence of an implantable cardiac device, both of which raise concern for deep-seated infection, such as vertebral osteomyelitis, discitis, and ICD-associated infection. Transferred to [facility] for advanced imaging and definitive source evaluation. Arrives having already received 2 full days of appropriate antibiotic coverage. - admit to 8E - consulting ID given MSSA + ICD + possible OM/discitis - TTE on admission negative for endocarditis - EP approve ICD compatibility for MRI - continue cefazolin - ID consulted rec c/w cefazolin, repeat Bcx2 due to minimal draw on admission, linda plan for 06/28 deferred to evaluate EGD prior - MRI T/L spine 06/27 showing T10 compression with possible osteomyelitis , Lumbar OM - Spine ortho consulted, rec standing T/L-spine xray - Bcx2 06/24 1 GPC - Repeat Bcx2 06/26 12 GPC - Repeat Bcx2 06/28 NGTD - oxy 5/oxy 7.5 mod/severe pain, dilaudid 0.2 for breakthrough - GI consulted for EGD 06/29 unremarkable - LINDA tentatively planned for Monday 07/02, npo midnight Wednesday - PICC line Wednesday if LINDA negative and Bcx 06/28 negative * Assessment & Plan Note - Maribel Romero MD - 07/01/2025 12:04 PM EST Associated Problem(s): Acute midline low back pain without sciatica 89 y/o M with PMH of HFrEF s/p biventricular ICD, CAD s/p PCI, CKD3, and BPH s/p recent TURP admitted with MSSA bacteremia, most likely related to recent genitourinary instrumentation. This is occurring in the setting of subacute back pain and presence of an implantable cardiac device, both of which raise concern for deep-seated infection, such as vertebral osteomyelitis, discitis, and ICD-associated infection. Transferred to [facility] for advanced imaging and definitive source evaluation. Arrives having already received 2 full days of appropriate antibiotic coverage. - admit to - consulting ID given MSSA + ICD + possible OM/discitis - TTE on admission negative for endocarditis - EP approve ICD compatibility for MRI - continue cefazolin - ID consulted rec c/w cefazolin, repeat Bcx2 due to minimal draw on admission, linda plan for 06/28 deferred to evaluate EGD prior - MRI T/L spine 06/27 showing T10 compression with possible osteomyelitis , Lumbar OM - Spine ortho consulted, rec standing T/L-spine xray - Bcx2 06/24 07/13 GPC - Repeat Bcx2 06/26 07/13 GPC - Repeat Bcx2 06/28 NGTD - oxy 5/oxy 7.5 mod/severe pain, dilaudid 0.2 for breakthrough - GI consulted for EGD 06/29 unremarkable - LINDA tentatively planned for Monday 07/02, npo midnight Wednesday - PICC line Wednesday if LINDA negative and Bcx 06/28 negative * Assessment & Plan Note - Maribel Romero MD - 07/01/2025 12:04 PM EST Associated Problem(s): Postoperative urinary retention (Resolved 07/03/2025) 89 y/o M with PMH of HFrEF s/p biventricular ICD, CAD s/p PCI, CKD3, and BPH s/p recent TURP admitted with MSSA bacteremia, most likely related to recent genitourinary instrumentation. This is occurring in the setting of subacute back pain and presence of an implantable cardiac device, both of which raise concern for deep-seated infection, such as vertebral osteomyelitis, discitis, and ICD-associated infection. Transferred to [facility] for advanced imaging and definitive source evaluation. Arrives having already received 2 full days of appropriate antibiotic coverage. - admit to 8E - consulting ID given MSSA + ICD + possible OM/discitis - TTE on admission negative for endocarditis - EP approve ICD compatibility for MRI - continue cefazolin - ID consulted rec c/w cefazolin, repeat Bcx2 due to minimal draw on admission, linda plan for 06/28 deferred to evaluate EGD prior - MRI T/L spine 06/27 showing T10 compression with possible osteomyelitis , Lumbar OM - Spine ortho consulted, rec standing T/L-spine xray - Bcx2 06/24 1 GPC - Repeat Bcx2 06/26 07/13 GPC - Repeat Bcx2 06/28 NGTD - oxy 5/oxy 7.5 mod/severe pain, dilaudid 0.2 for breakthrough - GI consulted for EGD 06/29 unremarkable - LINDA tentatively planned for Monday 07/02, npo midnight Wednesday - PICC line Wednesday if LINDA negative and Bcx 06/28 negative * Assessment & Plan Note - Maribel Romero MD - 07/01/2025 12:04 PM EST Associated Problem(s): S/P TURP (transurethral resection of prostate) 89 y/o M with PMH of HFrEF s/p biventricular ICD, CAD s/p PCI, CKD3, and BPH s/p recent TURP admitted with MSSA bacteremia, most likely related to recent genitourinary instrumentation. This is occurring in the setting of subacute back pain and presence of an implantable cardiac device, both of which raise concern for deep-seated infection, such as vertebral osteomyelitis, discitis, and ICD-associated infection. Transferred to [facility] for advanced imaging and definitive source evaluation. Arrives having already received 2 full days of appropriate antibiotic coverage. - admit to 8E - consulting ID given MSSA + ICD + possible OM/discitis - TTE on admission negative for endocarditis - EP approve ICD compatibility for MRI - continue cefazolin - ID consulted rec c/w cefazolin, repeat Bcx2 due to minimal draw on admission, linda plan for 06/28 deferred to evaluate EGD prior - MRI T/L spine 06/27 showing T10 compression with possible osteomyelitis , Lumbar OM - Spine ortho consulted, rec standing T/L-spine xray - Bcx2 06/24 07/13 GPC - Repeat Bcx2 06/26 07/13 GPC - Repeat Bcx2 06/28 NGTD - oxy 5/oxy 7.5 mod/severe pain, dilaudid 0.2 for breakthrough - GI consulted for EGD 06/29 unremarkable - LINDA tentatively planned for Monday 07/02, npo midnight Wednesday - PICC line Wednesday if LINDA negative and Bcx 06/28 negative * Assessment & Plan Note - Maribel Romero MD - 07/01/2025 12:04 PM EST Associated Problem(s): HFrEF (heart failure with reduced ejection fraction) - stable; no active chest pain; no signs of volume overload - continue home ASA 81 mg daily - continue home atorvastatin 40 mg HS - continue home losartan 25 mg daily - continue home toprol 12.5 mg HS - continue home spironolactone 25 mg daily * Assessment & Plan Note - Maribel Romero MD - 07/01/2025 12:04 PM EST Associated Problem(s): CAD (coronary artery disease) - stable; no active chest pain; no signs of volume overload - continue home ASA 81 mg daily - continue home atorvastatin 40 mg HS - continue home losartan 25 mg daily - continue home toprol 12.5 mg HS - continue home spironolactone 25 mg daily * Assessment & Plan Note - Maribel Romero MD - 07/01/2025 12:04 PM EST Associated Problem(s): Essential hypertension - stable; no active chest pain; no signs of volume overload - continue home ASA 81 mg daily - continue home atorvastatin 40 mg HS - continue home losartan 25 mg daily - continue home toprol 12.5 mg HS - continue home spironolactone 25 mg daily * Assessment & Plan Note - Maribel Romero MD - 07/01/2025 12:04 PM EST Associated Problem(s): Hyperlipidemia - stable; no active chest pain; no signs of volume overload - continue home ASA 81 mg daily - continue home atorvastatin 40 mg HS - continue home losartan 25 mg daily - continue home toprol 12.5 mg HS - continue home spironolactone 25 mg daily * Assessment & Plan Note - Maribel Romero MD - 07/01/2025 12:04 PM EST Associated Problem(s): Stage 3 chronic kidney disease (HCC) - initially presented to [facility] with an DENISHA (Scr 1.7); since resolved - Scr of 1.15 on presentation here - renally dose medications * Assessment & Plan Note - Maribel Romero MD - 07/01/2025 12:04 PM EST Associated Problem(s): Left arm swelling (Resolved 07/03/2025) Likely 2/2 infiltrated IV at OSH Improving with elevation LUE DVT US negative for DVT * Assessment & Plan Note - Maribel Romero MD - 06/30/2025 12:23 PM EST Associated Problem(s): MSSA bacteremia 89 y/o M with PMH of HFrEF s/p biventricular ICD, CAD s/p PCI, CKD3, and BPH s/p recent TURP admitted with MSSA bacteremia, most likely related to recent genitourinary instrumentation. This is occurring in the setting of subacute back pain and presence of an implantable cardiac device, both of which raise concern for deep-seated infection, such as vertebral osteomyelitis, discitis, and ICD-associated infection. Transferred to [facility] for advanced imaging and definitive source evaluation. Arrives having already received 2 full days of appropriate antibiotic coverage. - admit to - consulting ID given MSSA + ICD + possible OM/discitis - TTE on admission negative for endocarditis - EP approve ICD compatibility for MRI - continue cefazolin - ID consulted rec c/w cefazolin, repeat Bcx2 due to minimal draw on admission, linda plan for 06/28 deferred to evaluate EGD prior - MRI T/L spine 06/27 showing T10 compression with possible osteomyelitis , Lumbar OM - Spine ortho consulted, rec standing T/L-spine xray - Bcx2 06/24 07/13 GPC - Repeat Bcx2 06/26 07/13 GPC - Repeat Bcx2 06/28 NGTD - oxy 5/oxy 7.5 mod/severe pain, dilaudid 0.2 for breakthrough - GI consulted for EGD 06/29 unremarkable - LINDA tentatively planned for Monday 07/02, npo midnight Wednesday - PICC line Wednesday if LINDA negative and Bcx 06/28 negative * Assessment & Plan Note - Maribel Romero MD - 06/30/2025 12:23 PM EST Associated Problem(s): Presence of implantable cardioverter-defibrillator (ICD) 89 y/o M with PMH of HFrEF s/p biventricular ICD, CAD s/p PCI, CKD3, and BPH s/p recent TURP admitted with MSSA bacteremia, most likely related to recent genitourinary instrumentation. This is occurring in the setting of subacute back pain and presence of an implantable cardiac device, both of which raise concern for deep-seated infection, such as vertebral osteomyelitis, discitis, and ICD-associated infection. Transferred to [facility] for advanced imaging and definitive source evaluation. Arrives having already received 2 full days of appropriate antibiotic coverage. - admit to - consulting ID given MSSA + ICD + possible OM/discitis - TTE on admission negative for endocarditis - EP approve ICD compatibility for MRI - continue cefazolin - ID consulted rec c/w cefazolin, repeat Bcx2 due to minimal draw on admission, linda plan for 06/28 deferred to evaluate EGD prior - MRI T/L spine 06/27 showing T10 compression with possible osteomyelitis , Lumbar OM - Spine ortho consulted, rec standing T/L-spine xray - Bcx2 06/24 07/13 GPC - Repeat Bcx2 06/26 07/13 GPC - Repeat Bcx2 06/28 NGTD - oxy 5/oxy 7.5 mod/severe pain, dilaudid 0.2 for breakthrough - GI consulted for EGD 06/29 unremarkable - LINDA tentatively planned for Monday 07/02, npo midnight Wednesday - PICC line Wednesday if LINDA negative and Bcx 06/28 negative * Assessment & Plan Note - Maribel Romero MD - 06/30/2025 12:23 PM EST Associated Problem(s): Acute midline low back pain without sciatica 89 y/o M with PMH of HFrEF s/p biventricular ICD, CAD s/p PCI, CKD3, and BPH s/p recent TURP admitted with MSSA bacteremia, most likely related to recent genitourinary instrumentation. This is occurring in the setting of subacute back pain and presence of an implantable cardiac device, both of which raise concern for deep-seated infection, such as vertebral osteomyelitis, discitis, and ICD-associated infection. Transferred to [facility] for advanced imaging and definitive source evaluation. Arrives having already received 2 full days of appropriate antibiotic coverage. - admit to 8E - consulting ID given MSSA + ICD + possible OM/discitis - TTE on admission negative for endocarditis - EP approve ICD compatibility for MRI - continue cefazolin - ID consulted rec c/w cefazolin, repeat Bcx2 due to minimal draw on admission, linda plan for 06/28 deferred to evaluate EGD prior - MRI T/L spine 06/27 showing T10 compression with possible osteomyelitis , Lumbar OM - Spine ortho consulted, rec standing T/L-spine xray - Bcx2 06/24 07/13 GPC - Repeat Bcx2 06/26 07/13 GPC - Repeat Bcx2 06/28 NGTD - oxy 5/oxy 7.5 mod/severe pain, dilaudid 0.2 for breakthrough - GI consulted for EGD 06/29 unremarkable - LINDA tentatively planned for Monday 07/02, npo midnight Wednesday - PICC line Wednesday if LINDA negative and Bcx 06/28 negative * Assessment & Plan Note - Maribel Romero MD - 06/30/2025 12:23 PM EST Associated Problem(s): Postoperative urinary retention (Resolved 07/03/2025) 89 y/o M with PMH of HFrEF s/p biventricular ICD, CAD s/p PCI, CKD3, and BPH s/p recent TURP admitted with MSSA bacteremia, most likely related to recent genitourinary instrumentation. This is occurring in the setting of subacute back pain and presence of an implantable cardiac device, both of which raise concern for deep-seated infection, such as vertebral osteomyelitis, discitis, and ICD-associated infection. Transferred to [facility] for advanced imaging and definitive source evaluation. Arrives having already received 2 full days of appropriate antibiotic coverage. - admit to 8E - consulting ID given MSSA + ICD + possible OM/discitis - TTE on admission negative for endocarditis - EP approve ICD compatibility for MRI - continue cefazolin - ID consulted rec c/w cefazolin, repeat Bcx2 due to minimal draw on admission, linda plan for 06/28 deferred to evaluate EGD prior - MRI T/L spine 06/27 showing T10 compression with possible osteomyelitis , Lumbar OM - Spine ortho consulted, rec standing T/L-spine xray - Bcx2 06/24 1 GPC - Repeat Bcx2 06/26 07/13 GPC - Repeat Bcx2 06/28 NGTD - oxy 5/oxy 7.5 mod/severe pain, dilaudid 0.2 for breakthrough - GI consulted for EGD 06/29 unremarkable - LINDA tentatively planned for Monday 07/02, npo midnight Wednesday - PICC line Wednesday if LINDA negative and Bcx 06/28 negative * Assessment & Plan Note - Maribel Romero MD - 06/30/2025 12:23 PM EST Associated Problem(s): S/P TURP (transurethral resection of prostate) 89 y/o M with PMH of HFrEF s/p biventricular ICD, CAD s/p PCI, CKD3, and BPH s/p recent TURP admitted with MSSA bacteremia, most likely related to recent genitourinary instrumentation. This is occurring in the setting of subacute back pain and presence of an implantable cardiac device, both of which raise concern for deep-seated infection, such as vertebral osteomyelitis, discitis, and ICD-associated infection. Transferred to [facility] for advanced imaging and definitive source evaluation. Arrives having already received 2 full days of appropriate antibiotic coverage. - admit to 8E - consulting ID given MSSA + ICD + possible OM/discitis - TTE on admission negative for endocarditis - EP approve ICD compatibility for MRI - continue cefazolin - ID consulted rec c/w cefazolin, repeat Bcx2 due to minimal draw on admission, linda plan for 06/28 deferred to evaluate EGD prior - MRI T/L spine 06/27 showing T10 compression with possible osteomyelitis , Lumbar OM - Spine ortho consulted, rec standing T/L-spine xray - Bcx2 06/24 07/13 GPC - Repeat Bcx2 06/26 07/13 GPC - Repeat Bcx2 06/28 NGTD - oxy 5/oxy 7.5 mod/severe pain, dilaudid 0.2 for breakthrough - GI consulted for EGD 06/29 unremarkable - LINDA tentatively planned for Monday 07/02, npo midnight Wednesday - PICC line Wednesday if LINDA negative and Bcx 06/28 negative * Assessment & Plan Note - Maribel Romero MD - 06/30/2025 11:35 AM EST Associated Problem(s): Type 1 diabetes mellitus with hyperglycemia (HCC) 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 Follows with endocrinology at [facility]. 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 Follows with endocrinology at [facility]. - uncontrolled; A1C 12.8% in 04/2025 - lantus 8 units at bedtime while npo - lispro sliding scale insulin TID AC - glucose checks TID AC + HS - hypoglycemia protocol - carb controlled diet * Assessment & Plan Note - Maribel Romero MD - 06/30/2025 11:35 AM EST Associated Problem(s): HFrEF (heart failure with reduced ejection fraction) - stable; no active chest pain; no signs of volume overload - continue home ASA 81 mg daily - continue home atorvastatin 40 mg HS - continue home losartan 25 mg daily - continue home toprol 12.5 mg HS - continue home spironolactone 25 mg daily * Assessment & Plan Note - Maribel Romero MD - 06/30/2025 11:35 AM EST Associated Problem(s): CAD (coronary artery disease) - stable; no active chest pain; no signs of volume overload - continue home ASA 81 mg daily - continue home atorvastatin 40 mg HS - continue home losartan 25 mg daily - continue home toprol 12.5 mg HS - continue home spironolactone 25 mg daily * Assessment & Plan Note - Maribel Romero MD - 06/30/2025 11:35 AM EST Associated Problem(s): Essential hypertension - stable; no active chest pain; no signs of volume overload - continue home ASA 81 mg daily - continue home atorvastatin 40 mg HS - continue home losartan 25 mg daily - continue home toprol 12.5 mg HS - continue home spironolactone 25 mg daily * Assessment & Plan Note - Maribel Romero MD - 06/30/2025 11:35 AM EST Associated Problem(s): Hyperlipidemia - stable; no active chest pain; no signs of volume overload - continue home ASA 81 mg daily - continue home atorvastatin 40 mg HS - continue home losartan 25 mg daily - continue home toprol 12.5 mg HS - continue home spironolactone 25 mg daily * Assessment & Plan Note - Maribel Romero MD - 06/30/2025 11:35 AM EST Associated Problem(s): Stage 3 chronic kidney disease (HCC) - initially presented to [facility] with an DENISHA (Scr 1.7); since resolved - Scr of 1.15 on presentation here - renally dose medications * Assessment & Plan Note - Maribel Romero MD - 06/30/2025 11:35 AM EST Associated Problem(s): Anemia Hgb 10.4 on admission -> 8.8 No active signs of bleeding Iron 19 iron sat 8% hemolysis labs negative b12, folate wnl - iron supplement outpatient after infection resolves - GI consulted, plan for EGD prior to LINDA * Assessment & Plan Note - Maribel Romero MD - 06/30/2025 11:35 AM EST Associated Problem(s): Left arm swelling (Resolved 07/03/2025) LUE DVT US pending r/o dvt Likely 2/2 infiltrated IV at OSH Improving with elevation * OP Note - Florentino Lindsey MD - 06/29/2025 4:52 PM EST Images from the original note were not included. Manolo Sberna 89 year old Surgical Contact Serial Number: [id number] Location: [id number] 01 Date: 06/29/2025 RIDING DOUBLE: Lazara Elmore DO ATTENDING:Florentino Lindsey MD Procedure(s): ESOPHAGOGASTRODUODENOSCOPY INSTRUMENT: Scope #[id number] SEDATION: Anesthesia Assisted Pre-Op Diagnosis Codes: * Anemia due to other cause, not classified [D64.89] INDICATIONS: This is a 89 year old male with: history of heart failure with reduced ejection fraction, ICD in place, history of GI bleed from peptic ulcer disease ? Required surgical intervention, ? History of Villagomez's esophagus (several years ago), transferred from [facility] to [facility] for evaluation of diskitis-osteomyelitis and ICD compatible MRI testing, GI is consulted for evaluation of anemia here for further evaluation with EGD. While monitoring the patient with EKG, pulse oximetry and BP, endoscope passed to second portion ofduodenum by direct visualization. FINDINGS: DUODENUM: Bulb and descending portion to proximal jejunum appeared normal. STOMACH: Pyloric channel, antrum, body, fundus and cardia, including retroflexed views appear normal. ESOPHAGUS: Diaphragmatic hiatus was 39 cm from incisors and GE junction (upper margin of gastric folds) was at 39 cm from incisors. Squamocolumnar junction was at 39 cm from incisors. Mucosa appearednormal. 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] (Primary Diagnosis) [0140343] MSSA bacteremia [0081918] Acute midline low back pain without sciatica [M54.50] [7059241] Coronary artery disease involving [place] coronary artery of [place] heart without angina pectoris [I25.10] [9531183] Essential hypertension [I10] [939163] Gastroesophageal reflux disease, unspecified whether esophagitis present [K21.9] [4723292] HFrEF (heart failure with reduced ejection fraction) [I50.20] [3852109] 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] [3883213] Hyperlipidemia, unspecified hyperlipidemia type [E78.5] [3609749] Postoperative urinary retention [N99.89, R33.8] [7336200] S/P TURP (transurethral resection of prostate) [Z90.79] [679183] Stage 3a chronic kidney disease (HCC) [N18.31] [2394009] Type 1 diabetes mellitus with hyperglycemia (HCC) [E10.65] [624571] Anemia, unspecified type [5775729] ICD (implantable cardioverter-defibrillator) in place [6725411] Presence of implantable cardioverter-defibrillator (ICD) [5503812] HFrEF (heart failure with reduced ejection fraction) [5634136] Anemia due to other cause, not classified [9293416] ANATOMIC SPECIMEN: No SPECIMEN: * No specimens in log * PHOTOGRAPH TAKEN:yes COMPLICATIONS DURING PROCEDURE: None EBL (estimated blood loss): none IMPRESSION: Normal EGD No evidence of active or recent GI bleed. No explanation for anemia found on EGD RECOMMENDATIONS: Can discontinue IV PPI GI inpatient team will sign off at this time. Please page with any questions or concerns General Post-Procedure Instructions: Your doctor recommends you start the following new medications: N/A If you take a blood-thinner at home, your doctor recommends you start taking it again after waitingthis many hours: N/A Please avoid using NSAIDs (advil, motrin, ibuprofen, aleve, naproxen, toradol) for at least 48 hours. It is okay to use Tylenol for pain. You may continue/resume taking baby aspirin (81mg) today If you have any of the following symptoms, please contact the endoscopy center Mon-Wed 7:30am-4pm [phone] or after hours general [facility] number [phone] Severe abdominal pain that keeps getting worse Fever or any other signs of infection Nausea or vomiting blood Seeing persistent blood coming out of your rectum, with or without stool (some streaks or drops of blood may be expected) For any additional questions, please call the endoscopy center at [phone] Follow-up with your Primary Care Provider CC: Primary Care Provider: No primary care provider on file. PERSON COMPLETING NOTE: Lazara Elmore DO 06/29/2025 at 5:09 PM Patient meets criteria for discharge/transfer: Lazara Elmore DO ATTENDING NOTE: I was present during and participated in this procedure, and have reviewed and agree with the findings. Florentino Lindsey MD Staff Printed Circuit Designer , Division of Gastroenterology & Hepatology [place], [place] [employer], [employer] [employer] [facility] [employer] * Assessment & Plan Note - Maribel Romero MD - 06/29/2025 12:22 PM EST Associated Problem(s): Left arm swelling (Resolved 07/03/2025) LUE DVT US pending r/o dvt Likely 2/2 infiltrated IV at OSH Improving with elevation * Assessment & Plan Note - Maribel Romero MD - 06/29/2025 12:22 PM EST Associated Problem(s): MSSA bacteremia 89 y/o M with PMH of HFrEF s/p biventricular ICD, CAD s/p PCI, CKD3, and BPH s/p recent TURP admitted with MSSA bacteremia, most likely related to recent genitourinary instrumentation. This is occurring in the setting of subacute back pain and presence of an implantable cardiac device, both of which raise concern for deep-seated infection, such as vertebral osteomyelitis, discitis, and ICD-associated infection. Transferred to [facility] for advanced imaging and definitive source evaluation. Arrives having already received 2 full days of appropriate antibiotic coverage. - admit to 8E - consulting ID given MSSA + ICD + possible OM/discitis - TTE on admission negative for endocarditis - EP approve ICD compatibility for MRI - continue cefazolin - ID consulted rec c/w cefazolin, repeat Bcx2 due to minimal draw on admission, linda plan for 06/28 deferred to evaluate EGD prior - MRI T/L spine 06/27 showing T10 compression with possible osteomyelitis , Lumbar OM - Spine ortho consulted, rec standing T/L-spine xray - Bcx2 12/14 1/2 GPC - Repeat Bcx2 06/26 07/13 GPC - Repeat Bcx2 06/28 pending - oxy 5/oxy 7.5 mod/severe pain, dilaudid 0.2 for breakthrough - GI consulted for LINDA clearance and worsening anemia given hx of gastric ulcer/barrotts esophagus,plan for EGD 06/29 pending reversal of INR to goal 1.5 - LINDA tentatively planned for wednesday * Assessment & Plan Note - Maribel Romero MD - 06/29/2025 12:22 PM EST Associated Problem(s): Presence of implantable cardioverter-defibrillator (ICD) 89 y/o M with PMH of HFrEF s/p biventricular ICD, CAD s/p PCI, CKD3, and BPH s/p recent TURP admitted with MSSA bacteremia, most likely related to recent genitourinary instrumentation. This is occurring in the setting of subacute back pain and presence of an implantable cardiac device, both of which raise concern for deep-seated infection, such as vertebral osteomyelitis, discitis, and ICD-associated infection. Transferred to [facility] for advanced imaging and definitive source evaluation. Arrives having already received 2 full days of appropriate antibiotic coverage. - admit to 8E - consulting ID given MSSA + ICD + possible OM/discitis - TTE on admission negative for endocarditis - EP approve ICD compatibility for MRI - continue cefazolin - ID consulted rec c/w cefazolin, repeat Bcx2 due to minimal draw on admission, linda plan for 06/28 deferred to evaluate EGD prior - MRI T/L spine 06/27 showing T10 compression with possible osteomyelitis , Lumbar OM - Spine ortho consulted, rec standing T/L-spine xray - Bcx2 06/24 1 GPC - Repeat Bcx2 06/26 12 GPC - Repeat Bcx2 06/28 pending - oxy 5/oxy 7.5 mod/severe pain, dilaudid 0.2 for breakthrough - GI consulted for LINDA clearance and worsening anemia given hx of gastric ulcer/barrotts esophagus,plan for EGD 06/29 pending reversal of INR to goal 1.5 - LINDA tentatively planned for wednesday * Assessment & Plan Note - Maribel Romero MD - 06/29/2025 12:22 PM EST Associated Problem(s): Acute midline low back pain without sciatica 89 y/o M with PMH of HFrEF s/p biventricular ICD, CAD s/p PCI, CKD3, and BPH s/p recent TURP admitted with MSSA bacteremia, most likely related to recent genitourinary instrumentation. This is occurring in the setting of subacute back pain and presence of an implantable cardiac device, both of which raise concern for deep-seated infection, such as vertebral osteomyelitis, discitis, and ICD-associated infection. Transferred to [facility] for advanced imaging and definitive source evaluation. Arrives having already received 2 full days of appropriate antibiotic coverage. - admit to - consulting ID given MSSA + ICD + possible OM/discitis - TTE on admission negative for endocarditis - EP approve ICD compatibility for MRI - continue cefazolin - ID consulted rec c/w cefazolin, repeat Bcx2 due to minimal draw on admission, linda plan for 06/28 deferred to evaluate EGD prior - MRI T/L spine 06/27 showing T10 compression with possible osteomyelitis , Lumbar OM - Spine ortho consulted, rec standing T/L-spine xray - Bcx2 06/24 1 GPC - Repeat Bcx2 06/26 07/13 GPC - Repeat Bcx2 06/28 pending - oxy 5/oxy 7.5 mod/severe pain, dilaudid 0.2 for breakthrough - GI consulted for LINDA clearance and worsening anemia given hx of gastric ulcer/barrotts esophagus,plan for EGD 06/29 pending reversal of INR to goal 1.5 - LINDA tentatively planned for wednesday * Assessment & Plan Note - Maribel Romero MD - 06/29/2025 12:22 PM EST Associated Problem(s): Postoperative urinary retention (Resolved 07/03/2025) 89 y/o M with PMH of HFrEF s/p biventricular ICD, CAD s/p PCI, CKD3, and BPH s/p recent TURP admitted with MSSA bacteremia, most likely related to recent genitourinary instrumentation. This is occurring in the setting of subacute back pain and presence of an implantable cardiac device, both of which raise concern for deep-seated infection, such as vertebral osteomyelitis, discitis, and ICD-associated infection. Transferred to [facility] for advanced imaging and definitive source evaluation. Arrives having already received 2 full days of appropriate antibiotic coverage. - admit to 8E - consulting ID given MSSA + ICD + possible OM/discitis - TTE on admission negative for endocarditis - EP approve ICD compatibility for MRI - continue cefazolin - ID consulted rec c/w cefazolin, repeat Bcx2 due to minimal draw on admission, linda plan for 06/28 deferred to evaluate EGD prior - MRI T/L spine 06/27 showing T10 compression with possible osteomyelitis , Lumbar OM - Spine ortho consulted, rec standing T/L-spine xray - Bcx2 06/24 1/ GPC - Repeat Bcx2 06/26 1 GPC - Repeat Bcx2 06/28 pending - oxy 5/oxy 7.5 mod/severe pain, dilaudid 0.2 for breakthrough - GI consulted for LINDA clearance and worsening anemia given hx of gastric ulcer/barrotts esophagus,plan for EGD 06/29 pending reversal of INR to goal 1.5 - LINDA tentatively planned for wednesday * Assessment & Plan Note - Maribel Romero MD - 06/29/2025 12:22 PM EST Associated Problem(s): S/P TURP (transurethral resection of prostate) 89 y/o M with PMH of HFrEF s/p biventricular ICD, CAD s/p PCI, CKD3, and BPH s/p recent TURP admitted with MSSA bacteremia, most likely related to recent genitourinary instrumentation. This is occurring in the setting of subacute back pain and presence of an implantable cardiac device, both of which raise concern for deep-seated infection, such as vertebral osteomyelitis, discitis, and ICD-associated infection. Transferred to [facility] for advanced imaging and definitive source evaluation. Arrives having already received 2 full days of appropriate antibiotic coverage. - admit to 8E - consulting ID given MSSA + ICD + possible OM/discitis - TTE on admission negative for endocarditis - EP approve ICD compatibility for MRI - continue cefazolin - ID consulted rec c/w cefazolin, repeat Bcx2 due to minimal draw on admission, linda plan for 06/28 deferred to evaluate EGD prior - MRI T/L spine 06/27 showing T10 compression with possible osteomyelitis , Lumbar OM - Spine ortho consulted, rec standing T/L-spine xray - Bcx2 06/24 07/13 GPC - Repeat Bcx2 06/26 07/13 GPC - Repeat Bcx2 06/28 pending - oxy 5/oxy 7.5 mod/severe pain, dilaudid 0.2 for breakthrough - GI consulted for LINDA clearance and worsening anemia given hx of gastric ulcer/barrotts esophagus,plan for EGD 06/29 pending reversal of INR to goal 1.5 - LINDA tentatively planned for wednesday * Assessment & Plan Note - Maribel Romero MD - 06/29/2025 12:22 PM EST Associated Problem(s): Type 1 diabetes mellitus with hyperglycemia (HCC) 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 Follows with endocrinology at [facility]. 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 Follows with endocrinology at [facility]. - uncontrolled; A1C 12.8% in 04/2025 - lantus 8 units at bedtime while npo - lispro sliding scale insulin TID AC - glucose checks TID AC + HS - hypoglycemia protocol - carb controlled diet * Assessment & Plan Note - Maribel Romero MD - 06/29/2025 12:22 PM EST Associated Problem(s): HFrEF (heart failure with reduced ejection fraction) - stable; no active chest pain; no signs of volume overload - continue home ASA 81 mg daily - continue home atorvastatin 40 mg HS - continue home losartan 25 mg daily - continue home toprol 12.5 mg HS - continue home spironolactone 25 mg daily * Assessment & Plan Note - Maribel Romero MD - 06/29/2025 12:22 PM EST Associated Problem(s): CAD (coronary artery disease) - stable; no active chest pain; no signs of volume overload - continue home ASA 81 mg daily - continue home atorvastatin 40 mg HS - continue home losartan 25 mg daily - continue home toprol 12.5 mg HS - continue home spironolactone 25 mg daily * Assessment & Plan Note - Maribel Romero MD - 06/29/2025 12:22 PM EST Associated Problem(s): Essential hypertension - stable; no active chest pain; no signs of volume overload - continue home ASA 81 mg daily - continue home atorvastatin 40 mg HS - continue home losartan 25 mg daily - continue home toprol 12.5 mg HS - continue home spironolactone 25 mg daily * Assessment & Plan Note - Maribel Romero MD - 06/29/2025 12:22 PM EST Associated Problem(s): Hyperlipidemia - stable; no active chest pain; no signs of volume overload - continue home ASA 81 mg daily - continue home atorvastatin 40 mg HS - continue home losartan 25 mg daily - continue home toprol 12.5 mg HS - continue home spironolactone 25 mg daily * Assessment & Plan Note - Maribel Romero MD - 06/29/2025 12:22 PM EST Associated Problem(s): Stage 3 chronic kidney disease (HCC) - initially presented to [facility] with an DENISHA (Scr 1.7); since resolved - Scr of 1.15 on presentation here - renally dose medications * Assessment & Plan Note - Maribel Romero MD - 06/29/2025 12:22 PM EST Associated Problem(s): Anemia Hgb 10.4 on admission -> 8.8 No active signs of bleeding Iron 19 iron sat 8% hemolysis labs negative b12, folate wnl - iron supplement outpatient after infection resolves - GI consulted, plan for EGD prior to LINDA * Discharge Planning Note - Lana Rivas RN - 06/29/2025 12:11 PM EST Case Management CM attended multidisciplinary rounds for this patient and patient is not medically ready for discharge at this time. Pts EDOD is 07/03/2025. Pt currently needs a MIK/ LINDA. CM is aware that patient will discharge home with [facility], and [facility]. Pts Teachable caregiver will be his . Cm will remain available for discharge planning needs that may arise. Lana Rivas MSN, RN Inpatient Asphalt Paving Supervisor [facility] Cell [phone] * Blood Attestation - Maribel Romero MD - 06/29/2025 11:19 AM EST Blood Attestation: ATTESTATION OF INFORMED CONSENT FOR BLOOD: The transfusion of blood and/or blood components were discussed with the patient and/or legal airline security representative. The risks, benefits and alternatives were reviewed. Questions regarding blood transfusions were answered. The patient /or the patient???s legal airline security representative agree with the plan for transfusion of blood and/or blood components. * Treatment Plan Note - Katie Russell APRN-CNP - 06/29/2025 8:44 AM EST Interval Neurosurgery note: Upright images completed and reviewed with Dr. Mendez Plan; -Medicine primary -No acute Neurosurgical interventions -no restrictions from NSGY standpoint -abx per ID -please have patient follow up in clinic with Dr. Mendez in 2-4 weeks -remainder per primary -Neurosurgery signing off at this time Katie FORMAN, JAMIE Neurosurgery [phone] * Assessment & Plan Note - Maribel Romero MD - 06/28/2025 1:47 PM EST Associated Problem(s): MSSA bacteremia 89 y/o M with PMH of HFrEF s/p biventricular ICD, CAD s/p PCI, CKD3, and BPH s/p recent TURP admitted with MSSA bacteremia, most likely related to recent genitourinary instrumentation. This is occurring in the setting of subacute back pain and presence of an implantable cardiac device, both of which raise concern for deep-seated infection, such as vertebral osteomyelitis, discitis, and ICD-associated infection. Transferred to [facility] for advanced imaging and definitive source evaluation. Arrives having already received 2 full days of appropriate antibiotic coverage. - admit to 8E - consulting ID given MSSA + ICD + possible OM/discitis - TTE on admission negative for endocarditis - EP approve ICD compatibility for MRI - continue cefazolin - ID consulted rec c/w cefazolin, repeat Bcx2 due to minimal draw on admission, linda plan for 06/28 deferred to evaluate EGD prior - MRI T/L spine 06/27 showing T10 compression with possible osteomyelitis , Lumbar OM - Spine ortho consulted, rec standing T/L-spine xray - Bcx2 06/24 1/ GPC - Repeat Bcx2 06/26 1 GPC - Repeat Bcx2 06/28 pending - oxy 5/oxy 7.5 mod/severe pain, dilaudid 0.2 for breakthrough * Assessment & Plan Note - Maribel Romero MD - 06/28/2025 1:47 PM EST Associated Problem(s): Presence of implantable cardioverter-defibrillator (ICD) 89 y/o M with PMH of HFrEF s/p biventricular ICD, CAD s/p PCI, CKD3, and BPH s/p recent TURP admitted with MSSA bacteremia, most likely related to recent genitourinary instrumentation. This is occurring in the setting of subacute back pain and presence of an implantable cardiac device, both of which raise concern for deep-seated infection, such as vertebral osteomyelitis, discitis, and ICD-associated infection. Transferred to [facility] for advanced imaging and definitive source evaluation. Arrives having already received 2 full days of appropriate antibiotic coverage. - admit to - consulting ID given MSSA + ICD + possible OM/discitis - TTE on admission negative for endocarditis - EP approve ICD compatibility for MRI - continue cefazolin - ID consulted rec c/w cefazolin, repeat Bcx2 due to minimal draw on admission, linda plan for 06/28 deferred to evaluate EGD prior - MRI T/L spine 06/27 showing T10 compression with possible osteomyelitis , Lumbar OM - Spine ortho consulted, rec standing T/L-spine xray - Bcx2 06/24 1 GPC - Repeat Bcx2 06/262 GPC - Repeat Bcx2 06/28 pending - oxy 5/oxy 7.5 mod/severe pain, dilaudid 0.2 for breakthrough * Assessment & Plan Note - Maribel Romero MD - 06/28/2025 1:47 PM EST Associated Problem(s): Acute midline low back pain without sciatica 89 y/o M with PMH of HFrEF s/p biventricular ICD, CAD s/p PCI, CKD3, and BPH s/p recent TURP admitted with MSSA bacteremia, most likely related to recent genitourinary instrumentation. This is occurring in the setting of subacute back pain and presence of an implantable cardiac device, both of which raise concern for deep-seated infection, such as vertebral osteomyelitis, discitis, and ICD-associated infection. Transferred to [facility] for advanced imaging and definitive source evaluation. Arrives having already received 2 full days of appropriate antibiotic coverage. - admit to 8E - consulting ID given MSSA + ICD + possible OM/discitis - TTE on admission negative for endocarditis - EP approve ICD compatibility for MRI - continue cefazolin - ID consulted rec c/w cefazolin, repeat Bcx2 due to minimal draw on admission, linda plan for 06/28 deferred to evaluate EGD prior - MRI T/L spine 06/27 showing T10 compression with possible osteomyelitis , Lumbar OM - Spine ortho consulted, rec standing T/L-spine xray - Bcx2 06/24 1 GPC - Repeat Bcx2 06/26 12 GPC - Repeat Bcx2 06/28 pending - oxy 5/oxy 7.5 mod/severe pain, dilaudid 0.2 for breakthrough * Assessment & Plan Note - Maribel Romero MD - 06/28/2025 1:47 PM EST Associated Problem(s): Postoperative urinary retention (Resolved 07/03/2025) 89 y/o M with PMH of HFrEF s/p biventricular ICD, CAD s/p PCI, CKD3, and BPH s/p recent TURP admitted with MSSA bacteremia, most likely related to recent genitourinary instrumentation. This is occurring in the setting of subacute back pain and presence of an implantable cardiac device, both of which raise concern for deep-seated infection, such as vertebral osteomyelitis, discitis, and ICD-associated infection. Transferred to [facility] for advanced imaging and definitive source evaluation. Arrives having already received 2 full days of appropriate antibiotic coverage. - admit to 8E - consulting ID given MSSA + ICD + possible OM/discitis - TTE on admission negative for endocarditis - EP approve ICD compatibility for MRI - continue cefazolin - ID consulted rec c/w cefazolin, repeat Bcx2 due to minimal draw on admission, linda plan for 06/28 deferred to evaluate EGD prior - MRI T/L spine 06/27 showing T10 compression with possible osteomyelitis , Lumbar OM - Spine ortho consulted, rec standing T/L-spine xray - Bcx2 06/24 1 GPC - Repeat Bcx2 06/26 07/13 GPC - Repeat Bcx2 06/28 pending - oxy 5/oxy 7.5 mod/severe pain, dilaudid 0.2 for breakthrough * Assessment & Plan Note - Maribel Romero MD - 06/28/2025 1:47 PM EST Associated Problem(s): S/P TURP (transurethral resection of prostate) 89 y/o M with PMH of HFrEF s/p biventricular ICD, CAD s/p PCI, CKD3, and BPH s/p recent TURP admitted with MSSA bacteremia, most likely related to recent genitourinary instrumentation. This is occurring in the setting of subacute back pain and presence of an implantable cardiac device, both of which raise concern for deep-seated infection, such as vertebral osteomyelitis, discitis, and ICD-associated infection. Transferred to [facility] for advanced imaging and definitive source evaluation. Arrives having already received 2 full days of appropriate antibiotic coverage. - admit to 8E - consulting ID given MSSA + ICD + possible OM/discitis - TTE on admission negative for endocarditis - EP approve ICD compatibility for MRI - continue cefazolin - ID consulted rec c/w cefazolin, repeat Bcx2 due to minimal draw on admission, linda plan for 06/28 deferred to evaluate EGD prior - MRI T/L spine 06/27 showing T10 compression with possible osteomyelitis , Lumbar OM - Spine ortho consulted, rec standing T/L-spine xray - Bcx2 06/24 1 GPC - Repeat Bcx2 06/26 12 GPC - Repeat Bcx2 06/28 pending - oxy 5/oxy 7.5 mod/severe pain, dilaudid 0.2 for breakthrough * Assessment & Plan Note - Maribel Romero MD - 06/28/2025 1:47 PM EST Associated Problem(s): Type 1 diabetes mellitus with hyperglycemia (HCC) 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 Follows with endocrinology at [facility]. 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 Follows with endocrinology at [facility]. - uncontrolled; A1C 12.8% in 04/2025 - lantus 15 units HS - lispro sliding scale insulin TID AC - glucose checks TID AC + HS - hypoglycemia protocol - carb controlled diet * Assessment & Plan Note - Maribel Romero MD - 06/28/2025 1:47 PM EST Associated Problem(s): HFrEF (heart failure with reduced ejection fraction) - stable; no active chest pain; no signs of volume overload - continue home ASA 81 mg daily - continue home atorvastatin 40 mg HS - continue home losartan 25 mg daily - continue home toprol 12.5 mg HS - continue home spironolactone 25 mg daily * Assessment & Plan Note - Maribel Romero MD - 06/28/2025 1:47 PM EST Associated Problem(s): CAD (coronary artery disease) - stable; no active chest pain; no signs of volume overload - continue home ASA 81 mg daily - continue home atorvastatin 40 mg HS - continue home losartan 25 mg daily - continue home toprol 12.5 mg HS - continue home spironolactone 25 mg daily * Assessment & Plan Note - Maribel Romero MD - 06/28/2025 1:47 PM EST Associated Problem(s): Essential hypertension - stable; no active chest pain; no signs of volume overload - continue home ASA 81 mg daily - continue home atorvastatin 40 mg HS - continue home losartan 25 mg daily - continue home toprol 12.5 mg HS - continue home spironolactone 25 mg daily * Assessment & Plan Note - Maribel Romero MD - 06/28/2025 1:47 PM EST Associated Problem(s): Hyperlipidemia - stable; no active chest pain; no signs of volume overload - continue home ASA 81 mg daily - continue home atorvastatin 40 mg HS - continue home losartan 25 mg daily - continue home toprol 12.5 mg HS - continue home spironolactone 25 mg daily * Assessment & Plan Note - Maribel Romero MD - 06/28/2025 1:47 PM EST Associated Problem(s): Stage 3 chronic kidney disease (HCC) - initially presented to [facility] with an DENISHA (Scr 1.7); since resolved - Scr of 1.15 on presentation here - renally dose medications * Assessment & Plan Note - Maribel Romero MD - 06/28/2025 1:47 PM EST Associated Problem(s): Anemia Hgb 10.4 on admission -> 8.8 No active signs of bleeding Iron 19 iron sat 8% hemolysis labs negative b12, folate wnl - iron supplement outpatient after infection resolves - GI consulted, plan for EGD prior to LINDA * Assessment & Plan Note - Maribel Romero MD - 06/28/2025 1:47 PM EST Associated Problem(s): Left arm swelling (Resolved 07/03/2025) LUE DVT US pending r/o dvt * Discharge Planning Note - Angela Hudson RN - 06/28/2025 10:35 AM EST Per rounds, patient is not medically cleared for discharge today due to infection and needing PICC line placed. Team anticipates patient will be discharge ready, Wednesday. Patient will require IV ATB at discharge.He has been accepted by [facility] and [facility] awaiting agency of choice by patient. [facility] to provide IV ATB infusion. CANDICE Tello, RN, CCM PRN salon professional [phone] Addendum 1411: CM met with patient and spouse Rose to discuss discharge plan for homegoing. Family has chosen [facility] and [facility] for infusion services. Patients has confirmed she will bethe teachable caregiver. Updated agencies via Careport of anticipated dc date and AOC confirmation. CANDICE Tello, RN, CCM PRN salon professional [phone] * Assessment & Plan Note - Maribel Romero MD - 06/27/2025 12:58 PM EST Associated Problem(s): MSSA bacteremia 89 y/o M with PMH of HFrEF s/p biventricular ICD, CAD s/p PCI, CKD3, and BPH s/p recent TURP admitted with MSSA bacteremia, most likely related to recent genitourinary instrumentation. This is occurring in the setting of subacute back pain and presence of an implantable cardiac device, both of which raise concern for deep-seated infection, such as vertebral osteomyelitis, discitis, and ICD-associated infection. Transferred to [facility] for advanced imaging and definitive source evaluation. Arrives having already received 2 full days of appropriate antibiotic coverage. - admit to 8E - consulting ID given MSSA + ICD + possible OM/discitis - TTE on admission negative for endocarditis - EP approve ICD compatibility for MRI - continue cefazolin - ID consulted rec c/w cefazolin, repeat Bcx2 due to minimal draw on admission, linda plan for 06/28,MRI T/L spine 06/27 pending - Spine ortho consulted, pending MRI T/L spine - Bcx2 06/24 07/13 GPC - Repeat Bcx2 06/26 - oxy 5/oxy 7.5 mod/severe pain, dilaudid 0.2 for breakthrough * Assessment & Plan Note - Maribel Romero MD - 06/27/2025 12:58 PM EST Associated Problem(s): Presence of implantable cardioverter-defibrillator (ICD) 89 y/o M with PMH of HFrEF s/p biventricular ICD, CAD s/p PCI, CKD3, and BPH s/p recent TURP admitted with MSSA bacteremia, most likely related to recent genitourinary instrumentation. This is occurring in the setting of subacute back pain and presence of an implantable cardiac device, both of which raise concern for deep-seated infection, such as vertebral osteomyelitis, discitis, and ICD-associated infection. Transferred to [facility] for advanced imaging and definitive source evaluation. Arrives having already received 2 full days of appropriate antibiotic coverage. - admit to 8E - consulting ID given MSSA + ICD + possible OM/discitis - TTE on admission negative for endocarditis - EP approve ICD compatibility for MRI - continue cefazolin - ID consulted rec c/w cefazolin, repeat Bcx2 due to minimal draw on admission, linda plan for 06/28,MRI T/L spine 06/27 pending - Spine ortho consulted, pending MRI T/L spine - Bcx2 06/24 1 GPC - Repeat Bcx2 06/26 - oxy 5/oxy 7.5 mod/severe pain, dilaudid 0.2 for breakthrough * Assessment & Plan Note - Maribel Romero MD - 06/27/2025 12:58 PM EST Associated Problem(s): Acute midline low back pain without sciatica 89 y/o M with PMH of HFrEF s/p biventricular ICD, CAD s/p PCI, CKD3, and BPH s/p recent TURP admitted with MSSA bacteremia, most likely related to recent genitourinary instrumentation. This is occurring in the setting of subacute back pain and presence of an implantable cardiac device, both of which raise concern for deep-seated infection, such as vertebral osteomyelitis, discitis, and ICD-associated infection. Transferred to [facility] for advanced imaging and definitive source evaluation. Arrives having already received 2 full days of appropriate antibiotic coverage. - admit to 8E - consulting ID given MSSA + ICD + possible OM/discitis - TTE on admission negative for endocarditis - EP approve ICD compatibility for MRI - continue cefazolin - ID consulted rec c/w cefazolin, repeat Bcx2 due to minimal draw on admission, linda plan for 06/28,MRI T/L spine 06/27 pending - Spine ortho consulted, pending MRI T/L spine - Bcx2 06/24 1 GPC - Repeat Bcx2 06/26 - oxy 5/oxy 7.5 mod/severe pain, dilaudid 0.2 for breakthrough * Assessment & Plan Note - Maribel Romero MD - 06/27/2025 12:58 PM EST Associated Problem(s): Postoperative urinary retention (Resolved 07/03/2025) 89 y/o M with PMH of HFrEF s/p biventricular ICD, CAD s/p PCI, CKD3, and BPH s/p recent TURP admitted with MSSA bacteremia, most likely related to recent genitourinary instrumentation. This is occurring in the setting of subacute back pain and presence of an implantable cardiac device, both of which raise concern for deep-seated infection, such as vertebral osteomyelitis, discitis, and ICD-associated infection. Transferred to [facility] for advanced imaging and definitive source evaluation. Arrives having already received 2 full days of appropriate antibiotic coverage. - admit to 8E - consulting ID given MSSA + ICD + possible OM/discitis - TTE on admission negative for endocarditis - EP approve ICD compatibility for MRI - continue cefazolin - ID consulted rec c/w cefazolin, repeat Bcx2 due to minimal draw on admission, linda plan for 06/28,MRI T/L spine 06/27 pending - Spine ortho consulted, pending MRI T/L spine - Bcx2 06/24 07/13 GPC - Repeat Bcx2 06/26 - oxy 5/oxy 7.5 mod/severe pain, dilaudid 0.2 for breakthrough * Assessment & Plan Note - Maribel Romero MD - 06/27/2025 12:58 PM EST Associated Problem(s): S/P TURP (transurethral resection of prostate) 89 y/o M with PMH of HFrEF s/p biventricular ICD, CAD s/p PCI, CKD3, and BPH s/p recent TURP admitted with MSSA bacteremia, most likely related to recent genitourinary instrumentation. This is occurring in the setting of subacute back pain and presence of an implantable cardiac device, both of which raise concern for deep-seated infection, such as vertebral osteomyelitis, discitis, and ICD-associated infection. Transferred to [facility] for advanced imaging and definitive source evaluation. Arrives having already received 2 full days of appropriate antibiotic coverage. - admit to 8E - consulting ID given MSSA + ICD + possible OM/discitis - TTE on admission negative for endocarditis - EP approve ICD compatibility for MRI - continue cefazolin - ID consulted rec c/w cefazolin, repeat Bcx2 due to minimal draw on admission, linda plan for 06/28,MRI T/L spine 06/27 pending - Spine ortho consulted, pending MRI T/L spine - Bcx2 12/14 1/2 GPC - Repeat Bcx2 06/26 - oxy 5/oxy 7.5 mod/severe pain, dilaudid 0.2 for breakthrough * Assessment & Plan Note - Maribel Romero MD - 06/27/2025 12:58 PM EST Associated Problem(s): Type 1 diabetes mellitus with hyperglycemia (HCC) 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 Follows with endocrinology at [facility]. 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 Follows with endocrinology at [facility]. - uncontrolled; A1C 12.8% in 04/2025 - lantus 15 units HS - lispro sliding scale insulin TID AC - glucose checks TID AC + HS - hypoglycemia protocol - carb controlled diet * Assessment & Plan Note - Maribel Romero MD - 06/27/2025 12:58 PM EST Associated Problem(s): HFrEF (heart failure with reduced ejection fraction) - stable; no active chest pain; no signs of volume overload - continue home ASA 81 mg daily - continue home atorvastatin 40 mg HS - continue home losartan 25 mg daily - continue home toprol 12.5 mg HS - continue home spironolactone 25 mg daily * Assessment & Plan Note - Maribel Romero MD - 06/27/2025 12:58 PM EST Associated Problem(s): CAD (coronary artery disease) - stable; no active chest pain; no signs of volume overload - continue home ASA 81 mg daily - continue home atorvastatin 40 mg HS - continue home losartan 25 mg daily - continue home toprol 12.5 mg HS - continue home spironolactone 25 mg daily * Assessment & Plan Note - Maribel Romero MD - 06/27/2025 12:58 PM EST Associated Problem(s): Essential hypertension - stable; no active chest pain; no signs of volume overload - continue home ASA 81 mg daily - continue home atorvastatin 40 mg HS - continue home losartan 25 mg daily - continue home toprol 12.5 mg HS - continue home spironolactone 25 mg daily * Assessment & Plan Note - Maribel Romero MD - 06/27/2025 12:58 PM EST Associated Problem(s): Hyperlipidemia - stable; no active chest pain; no signs of volume overload - continue home ASA 81 mg daily - continue home atorvastatin 40 mg HS - continue home losartan 25 mg daily - continue home toprol 12.5 mg HS - continue home spironolactone 25 mg daily * Assessment & Plan Note - Maribel Romero MD - 06/27/2025 12:58 PM EST Associated Problem(s): Stage 3 chronic kidney disease (HCC) - initially presented to [facility] with an DENISHA (Scr 1.7); since resolved - Scr of 1.15 on presentation here - renally dose medications * Assessment & Plan Note - Maribel Romero MD - 06/27/2025 12:58 PM EST Associated Problem(s): Anemia Hgb 10.4 on admission No active signs of bleeding Iron 19 iron sat 8% hemolysis labs negative b12, folate wnl - iron supplement outpatient after infection resolves * Assessment & Plan Note - Maribel Romero MD - 06/27/2025 12:58 PM EST Associated Problem(s): Left arm swelling (Resolved 07/03/2025) LUE DVT US pending r/o dvt * Home Health Care - Buffy Gasca - 06/27/2025 12:54 PM EST [facility] NOTE Referral from: JOHNNY Insurance verification: weekly copay for Cefazolin through the Medicare part D plan is $0, suppliesare not covered by Medicare and will be self pay at $140/week Discussion with patient: to follow when appropriate [facility] agency: [facility] Start of care at home: TBD Other: Following for HIVAT needs at [place] [facility] Toll free After hours or weekend intake senior executive compensation analyst or Buffy Gasca RN Clinical Nurse Liaison [phone] * Discharge Planning Note - Lana Rivas RN - 06/27/2025 12:36 PM EST CASE MANAGEMENT CM made aware by Physicians that team anticipates patient to be medically cleared for discharge. Patient will need HIVAT for discharge. CM placed a Careport Referral with [facility] to initiate review of costs for home IV antibiotics.. CM and [facility] Liaison to discuss recommendation with infectious disease and medicine team. The following will need to be completed prior to discharge. ID Abstract - medical team PICC Line - medical team Con 196 for SN - Home care to be set up by case coordinator; medical team to place home care order Insurance precert for medications CM will continue to follow for discharge planning and coordination for Home IV ATB Referral [facility] to [facility] for [facility]B Referral sent for HHC. SW/CM aware that patient meets criteria for HHC. Met with Pt on unit to discuss dispo. Patient open and agreeable to HHC. CM/SW provided Pt the quality and resource use measure data from available post- acute (PAC) providers, that best align with the patient's treatment goals and preferences from the medicare.gov comparesite for HHC. [place] of Choice was provided to the patient/patient airline security representative. CM to follow for accepting [facility] agencies. Lana Rivas MSN, RN Inpatient Asphalt Paving Supervisor [address] [place] [address] Cell [phone] * Assessment & Plan Note - Maribel Romero MD - 06/26/2025 1:27 PM EST Associated Problem(s): MSSA bacteremia 89 y/o M with PMH of HFrEF s/p biventricular ICD, CAD s/p PCI, CKD3, and BPH s/p recent TURP admitted with MSSA bacteremia, most likely related to recent genitourinary instrumentation. This is occurring in the setting of subacute back pain and presence of an implantable cardiac device, both of which raise concern for deep-seated infection, such as vertebral osteomyelitis, discitis, and ICD-associated infection. Transferred to [facility] for advanced imaging and definitive source evaluation. Arrives having already received 2 full days of appropriate antibiotic coverage. - admit to 8E - consulting ID given MSSA + ICD + possible OM/discitis - repeat blood cultures drawn on 06/24 - obtain TTE; will likely need LINDA unless goals of care change - needs MRI thoracic/lumbar spine; must confirm make/model of biventricular ICD first, however unable to locate details in OSH records, patient contacting to bring in ICD paperwork from home - continue cefazolin - ID consulted rec c/w cefazolin, repeat Bcx2 due to minimal draw on admission, possible linda, MRI T/L spine, spine orth - Spine ortho consulted, pending MRI T/L spine - Bcx2 - Repeat Bcx2 06/26 * Assessment & Plan Note - Maribel Romero MD - 06/26/2025 1:27 PM EST Associated Problem(s): Presence of implantable cardioverter-defibrillator (ICD) 89 y/o M with PMH of HFrEF s/p biventricular ICD, CAD s/p PCI, CKD3, and BPH s/p recent TURP admitted with MSSA bacteremia, most likely related to recent genitourinary instrumentation. This is occurring in the setting of subacute back pain and presence of an implantable cardiac device, both of which raise concern for deep-seated infection, such as vertebral osteomyelitis, discitis, and ICD-associated infection. [facility] [place] [facility] [facility] and definitive source evaluation. Arrives having already received 2 full days of appropriate antibiotic coverage. - admit to 8E - consulting ID given MSSA + ICD + possible OM/discitis - repeat blood cultures drawn on 06/24 - obtain TTE; will likely need LINDA unless goals of care change - needs MRI thoracic/lumbar spine; must confirm make/model of biventricular ICD first, however unable to locate details in OSH records, patient contacting to bring in ICD paperwork from home - continue cefazolin - ID consulted rec c/w cefazolin, repeat Bcx2 due to minimal draw on admission, possible linda, MRI T/L spine, spine orth - Spine ortho consulted, pending MRI T/L spine - Bcx2 - Repeat Bcx2 06/26 * Assessment & Plan Note - Maribel Romero MD - 06/26/2025 1:27 PM EST Associated Problem(s): Acute midline low back pain without sciatica 89 y/o M with PMH of HFrEF s/p biventricular ICD, CAD s/p PCI, CKD3, and BPH s/p recent TURP admitted with MSSA bacteremia, most likely related to recent genitourinary instrumentation. This is occurring in the setting of subacute back pain and presence of an implantable cardiac device, both of which raise concern for deep-seated infection, such as vertebral osteomyelitis, discitis, and ICD-associated infection. Transferred to [facility] for advanced imaging and definitive source evaluation. Arrives having already received 2 full days of appropriate antibiotic coverage. - admit to 8E - consulting ID given MSSA + ICD + possible OM/discitis - repeat blood cultures drawn on 06/24 - obtain TTE; will likely need LINDA unless goals of care change - needs MRI thoracic/lumbar spine; must confirm make/model of biventricular ICD first, however unable to locate details in OSH records, patient contacting to bring in ICD paperwork from home - continue cefazolin - ID consulted rec c/w cefazolin, repeat Bcx2 due to minimal draw on admission, possible linda, MRI T/L spine, spine orth - Spine ortho consulted, pending MRI T/L spine - Bcx2 - Repeat Bcx2 06/26 * Assessment & Plan Note - Maribel Romero MD - 06/26/2025 1:27 PM EST Associated Problem(s): Postoperative urinary retention (Resolved 07/03/2025) 89 y/o M with PMH of HFrEF s/p biventricular ICD, CAD s/p PCI, CKD3, and BPH s/p recent TURP admitted with MSSA bacteremia, most likely related to recent genitourinary instrumentation. This is occurring in the setting of subacute back pain and presence of an implantable cardiac device, both of which raise concern for deep-seated infection, such as vertebral osteomyelitis, discitis, and ICD-associated infection. Transferred to [facility] for advanced imaging and definitive source evaluation. Arrives having already received 2 full days of appropriate antibiotic coverage. - admit to 8E - consulting ID given MSSA + ICD + possible OM/discitis - repeat blood cultures drawn on 06/24 - obtain TTE; will likely need LINDA unless goals of care change - needs MRI thoracic/lumbar spine; must confirm make/model of biventricular ICD first, however unable to locate details in OSH records, patient contacting to bring in ICD paperwork from home - continue cefazolin - ID consulted rec c/w cefazolin, repeat Bcx2 due to minimal draw on admission, possible linda, MRI T/L spine, spine orth - Spine ortho consulted, pending MRI T/L spine - Bcx2 - Repeat Bcx2 06/26 * Assessment & Plan Note - Maribel Romero MD - 06/26/2025 1:27 PM EST Associated Problem(s): S/P TURP (transurethral resection of prostate) 89 y/o M with PMH of HFrEF s/p biventricular ICD, CAD s/p PCI, CKD3, and BPH s/p recent TURP admitted with MSSA bacteremia, most likely related to recent genitourinary instrumentation. This is occurring in the setting of subacute back pain and presence of an implantable cardiac device, both of which raise concern for deep-seated infection, such as vertebral osteomyelitis, discitis, and ICD-associated infection. Transferred to [facility] for advanced imaging and definitive source evaluation. Arrives having already received 2 full days of appropriate antibiotic coverage. - admit to 8E - consulting ID given MSSA + ICD + possible OM/discitis - repeat blood cultures drawn on 06/24 - obtain TTE; will likely need LINDA unless goals of care change - needs MRI thoracic/lumbar spine; must confirm make/model of biventricular ICD first, however unable to locate details in OSH records, patient contacting to bring in ICD paperwork from home - continue cefazolin - ID consulted rec c/w cefazolin, repeat Bcx2 due to minimal draw on admission, possible linda, MRI T/L spine, spine orth - Spine ortho consulted, pending MRI T/L spine - Bcx2 - Repeat Bcx2 06/26 * Assessment & Plan Note - Maribel Romero MD - 06/26/2025 1:27 PM EST Associated Problem(s): Type 1 diabetes mellitus with hyperglycemia (HCC) 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 Follows with endocrinology at [facility]. 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 Follows with endocrinology at [facility]. - uncontrolled; A1C 12.8% in 04/2025 - lantus 15 units HS - lispro sliding scale insulin TID AC - glucose checks TID AC + HS - hypoglycemia protocol - carb controlled diet * Assessment & Plan Note - Maribel Romero MD - 06/26/2025 1:27 PM EST Associated Problem(s): HFrEF (heart failure with reduced ejection fraction) - stable; no active chest pain; no signs of volume overload - continue home ASA 81 mg daily - continue home atorvastatin 40 mg HS - continue home losartan 25 mg daily - continue home toprol 12.5 mg HS - continue home spironolactone 25 mg daily * Assessment & Plan Note - Maribel Romero MD - 06/26/2025 1:27 PM EST Associated Problem(s): CAD (coronary artery disease) - stable; no active chest pain; no signs of volume overload - continue home ASA 81 mg daily - continue home atorvastatin 40 mg HS - continue home losartan 25 mg daily - continue home toprol 12.5 mg HS - continue home spironolactone 25 mg daily * Assessment & Plan Note - Maribel Romero MD - 06/26/2025 1:27 PM EST Associated Problem(s): Essential hypertension - stable; no active chest pain; no signs of volume overload - continue home ASA 81 mg daily - continue home atorvastatin 40 mg HS - continue home losartan 25 mg daily - continue home toprol 12.5 mg HS - continue home spironolactone 25 mg daily * Assessment & Plan Note - Maribel Romero MD - 06/26/2025 1:27 PM EST Associated Problem(s): Hyperlipidemia - stable; no active chest pain; no signs of volume overload - continue home ASA 81 mg daily - continue home atorvastatin 40 mg HS - continue home losartan 25 mg daily - continue home toprol 12.5 mg HS - continue home spironolactone 25 mg daily * Assessment & Plan Note - Maribel Romero MD - 06/26/2025 1:27 PM EST Associated Problem(s): Stage 3 chronic kidney disease (HCC) - initially presented to [facility] with an DENISHA (Scr 1.7); since resolved - Scr of 1.15 on presentation here - renally dose medications * Assessment & Plan Note - Maribel Romero MD - 06/26/2025 1:27 PM EST Associated Problem(s): Anemia Hgb 10.4 on admission No active signs of bleeding -check iron studies -check hemolysis labs -b12, folate * Assessment & Plan Note - Maribel Romero MD - 06/26/2025 1:27 PM EST Associated Problem(s): Left arm swelling (Resolved 07/03/2025) LUE DVT US r/o dvt * Assessment & Plan Note - Maribel Romero MD - 06/25/2025 3:47 PM EST Associated Problem(s): Left arm swelling (Resolved 07/03/2025) LUE DVT US r/o dvt * Assessment & Plan Note - Maribel Romero MD - 06/25/2025 11:42 AM EST Associated Problem(s): MSSA bacteremia 89 y/o M with PMH of HFrEF s/p biventricular ICD, CAD s/p PCI, CKD3, and BPH s/p recent TURP admitted with MSSA bacteremia, most likely related to recent genitourinary instrumentation. This is occurring in the setting of subacute back pain and presence of an implantable cardiac device, both of which raise concern for deep-seated infection, such as vertebral osteomyelitis, discitis, and ICD-associated infection. Transferred to [facility] for advanced imaging and definitive source evaluation. Arrives having already received 2 full days of appropriate antibiotic coverage. - admit to 8E - consulting ID given MSSA + ICD + possible OM/discitis - repeat blood cultures drawn on 06/24 - obtain TTE; will likely need LINDA unless goals of care change - needs MRI thoracic/lumbar spine; must confirm make/model of biventricular ICD first, however unable to locate details in OSH records, patient contacting to bring in ICD paperwork from home - continue cefazolin - ID consulted appreciate recs on utility of MRI vs empiric treatment for discitis and need for LINDA * Assessment & Plan Note - Maribel Romero MD - 06/25/2025 11:42 AM EST Associated Problem(s): Presence of implantable cardioverter-defibrillator (ICD) 89 y/o M with PMH of HFrEF s/p biventricular ICD, CAD s/p PCI, CKD3, and BPH s/p recent TURP admitted with MSSA bacteremia, most likely related to recent genitourinary instrumentation. This is occurring in the setting of subacute back pain and presence of an implantable cardiac device, both of which raise concern for deep-seated infection, such as vertebral osteomyelitis, discitis, and ICD-associated infection. Transferred to [facility] for advanced imaging and definitive source evaluation. Arrives having already received 2 full days of appropriate antibiotic coverage. - admit to 8E - consulting ID given MSSA + ICD + possible OM/discitis - repeat blood cultures drawn on 06/24 - obtain TTE; will likely need LINDA unless goals of care change - needs MRI thoracic/lumbar spine; must confirm make/model of biventricular ICD first, however unable to locate details in OSH records, patient contacting to bring in ICD paperwork from home - continue cefazolin - ID consulted appreciate recs on utility of MRI vs empiric treatment for discitis and need for LINDA * Assessment & Plan Note - Maribel Romero MD - 06/25/2025 11:42 AM EST Associated Problem(s): Acute midline low back pain without sciatica 89 y/o M with PMH of HFrEF s/p biventricular ICD, CAD s/p PCI, CKD3, and BPH s/p recent TURP admitted with MSSA bacteremia, most likely related to recent genitourinary instrumentation. This is occurring in the setting of subacute back pain and presence of an implantable cardiac device, both of which raise concern for deep-seated infection, such as vertebral osteomyelitis, discitis, and ICD-associated infection. Transferred to [facility] for advanced imaging and definitive source evaluation. Arrives having already received 2 full days of appropriate antibiotic coverage. - admit to 8E - consulting ID given MSSA + ICD + possible OM/discitis - repeat blood cultures drawn on 06/24 - obtain TTE; will likely need LINDA unless goals of care change - needs MRI thoracic/lumbar spine; must confirm make/model of biventricular ICD first, however unable to locate details in OSH records, patient contacting to bring in ICD paperwork from home - continue cefazolin - ID consulted appreciate recs on utility of MRI vs empiric treatment for discitis and need for LINDA * Assessment & Plan Note - Maribel Romero MD - 06/25/2025 11:42 AM EST Associated Problem(s): Postoperative urinary retention (Resolved 07/03/2025) 89 y/o M with PMH of HFrEF s/p biventricular ICD, CAD s/p PCI, CKD3, and BPH s/p recent TURP admitted with MSSA bacteremia, most likely related to recent genitourinary instrumentation. This is occurring in the setting of subacute back pain and presence of an implantable cardiac device, both of which raise concern for deep-seated infection, such as vertebral osteomyelitis, discitis, and ICD-associated infection. Transferred to [facility] for advanced imaging and definitive source evaluation. Arrives having already received 2 full days of appropriate antibiotic coverage. - admit to 8E - consulting ID given MSSA + ICD + possible OM/discitis - repeat blood cultures drawn on 06/24 - obtain TTE; will likely need LINDA unless goals of care change - needs MRI thoracic/lumbar spine; must confirm make/model of biventricular ICD first, however unable to locate details in OSH records, patient contacting to bring in ICD paperwork from home - continue cefazolin - ID consulted appreciate recs on utility of MRI vs empiric treatment for discitis and need for LINDA * Assessment & Plan Note - Maribel Romero MD - 06/25/2025 11:42 AM EST Associated Problem(s): S/P TURP (transurethral resection of prostate) 89 y/o M with PMH of HFrEF s/p biventricular ICD, CAD s/p PCI, CKD3, and BPH s/p recent TURP admitted with MSSA bacteremia, most likely related to recent genitourinary instrumentation. This is occurring in the setting of subacute back pain and presence of an implantable cardiac device, both of which raise concern for deep-seated infection, such as vertebral osteomyelitis, discitis, and ICD-associated infection. Transferred to [facility] for advanced imaging and definitive source evaluation. Arrives having already received 2 full days of appropriate antibiotic coverage. - admit to 8E - consulting ID given MSSA + ICD + possible OM/discitis - repeat blood cultures drawn on 06/24 - obtain TTE; will likely need LINDA unless goals of care change - needs MRI thoracic/lumbar spine; must confirm make/model of biventricular ICD first, however unable to locate details in OSH records, patient contacting to bring in ICD paperwork from home - continue cefazolin - ID consulted appreciate recs on utility of MRI vs empiric treatment for discitis and need for LINDA * Assessment & Plan Note - Maribel Romero MD - 06/25/2025 11:42 AM EST Associated Problem(s): Type 1 diabetes mellitus with hyperglycemia (HCC) 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 Follows with endocrinology at [facility]. - uncontrolled; A1C 12.8% in 04/2025 - lantus 15 units HS - lispro sliding scale insulin TID AC - glucose checks TID AC + HS - hypoglycemia protocol - carb controlled diet * Assessment & Plan Note - Maribel Romero MD - 06/25/2025 11:42 AM EST Associated Problem(s): History of pancreatectomy Etiology of patient's type 1 diabetes is from pancreatectomy in 2018 for IPMN. Follows with endocrinology at [facility]. - uncontrolled; A1C 12.8% in 04/2025 - lantus 15 units HS - lispro sliding scale insulin TID AC - glucose checks TID AC + HS - hypoglycemia protocol - carb controlled diet * Assessment & Plan Note - Maribel Romero MD - 06/25/2025 11:42 AM EST Associated Problem(s): HFrEF (heart failure with reduced ejection fraction) - stable; no active chest pain; no signs of volume overload - continue home ASA 81 mg daily - continue home atorvastatin 40 mg HS - continue home losartan 25 mg daily - continue home toprol 12.5 mg HS - continue home spironolactone 25 mg daily * Assessment & Plan Note - Maribel Romero MD - 06/25/2025 11:42 AM EST Associated Problem(s): CAD (coronary artery disease) - stable; no active chest pain; no signs of volume overload - continue home ASA 81 mg daily - continue home atorvastatin 40 mg HS - continue home losartan 25 mg daily - continue home toprol 12.5 mg HS - continue home spironolactone 25 mg daily * Assessment & Plan Note - Maribel Romero MD - 06/25/2025 11:42 AM EST Associated Problem(s): Essential hypertension - stable; no active chest pain; no signs of volume overload - continue home ASA 81 mg daily - continue home atorvastatin 40 mg HS - continue home losartan 25 mg daily - continue home toprol 12.5 mg HS - continue home spironolactone 25 mg daily * Assessment & Plan Note - Maribel Romero MD - 06/25/2025 11:42 AM EST Associated Problem(s): Hyperlipidemia - stable; no active chest pain; no signs of volume overload - continue home ASA 81 mg daily - continue home atorvastatin 40 mg HS - continue home losartan 25 mg daily - continue home toprol 12.5 mg HS - continue home spironolactone 25 mg daily * Assessment & Plan Note - Maribel Romero MD - 06/25/2025 11:42 AM EST Associated Problem(s): Stage 3 chronic kidney disease (HCC) - initially presented to [facility] with an DENISHA (Scr 1.7); since resolved - Scr of 1.15 on presentation here - renally dose medications * Assessment & Plan Note - Maribel Romero MD - 06/25/2025 11:42 AM EST Associated Problem(s): Anemia Hgb 10.4 on admission No active signs of bleeding -check iron studies * Assessment & Plan Note - Sudarshan Lovett MD - 06/25/2025 8:28 AM EST Associated Problem(s): HFrEF (heart failure with reduced ejection fraction) - stable; no active chest pain; no signs of volume overload - continue home ASA 81 mg daily - continue home atorvastatin 40 mg HS - continue home losartan 25 mg daily - continue home toprol 12.5 mg HS - continue home spironolactone 25 mg daily * Assessment & Plan Note - Sudarshan Lovett MD - 06/25/2025 8:28 AM EST Associated Problem(s): CAD (coronary artery disease) - stable; no active chest pain; no signs of volume overload - continue home ASA 81 mg daily - continue home atorvastatin 40 mg HS - continue home losartan 25 mg daily - continue home toprol 12.5 mg HS - continue home spironolactone 25 mg daily * Assessment & Plan Note - Sudarshan Lovett MD - 06/25/2025 8:28 AM EST Associated Problem(s): Essential hypertension - stable; no active chest pain; no signs of volume overload - continue home ASA 81 mg daily - continue home atorvastatin 40 mg HS - continue home losartan 25 mg daily - continue home toprol 12.5 mg HS - continue home spironolactone 25 mg daily * Assessment & Plan Note - Sudarshan Lovett MD - 06/25/2025 8:28 AM EST Associated Problem(s): Hyperlipidemia - stable; no active chest pain; no signs of volume overload - continue home ASA 81 mg daily - continue home atorvastatin 40 mg HS - continue home losartan 25 mg daily - continue home toprol 12.5 mg HS - continue home spironolactone 25 mg daily * Assessment & Plan Note - Sudarshan Lovett MD - 06/25/2025 8:28 AM EST Associated Problem(s): Stage 3 chronic kidney disease (HCC) - initially presented to [facility] with an DENISHA (Scr 1.7); since resolved - Scr of 1.15 on presentation here - renally dose medications * Assessment & Plan Note - Sudarshan Lovett MD - 06/25/2025 8:28 AM EST Associated Problem(s): Type 1 diabetes mellitus with hyperglycemia (HCC) 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 Follows with endocrinology at [facility]. 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 Follows with endocrinology at [facility]. - uncontrolled; A1C 12.8% in 04/2025 - lantus 15 units HS - lispro sliding scale insulin TID AC - glucose checks TID AC + HS - hypoglycemia protocol - carb controlled diet * Assessment & Plan Note - Sudarshan Lovett MD - 06/25/2025 8:28 AM EST Associated Problem(s): Postoperative urinary retention (Resolved 07/03/2025) 89 y/o M with PMH of HFrEF s/p biventricular ICD, CAD s/p PCI, CKD3, and BPH s/p recent TURP admitted with MSSA bacteremia, most likely related to recent genitourinary instrumentation. This is occurring in the setting of subacute back pain and presence of an implantable cardiac device, both of which raise concern for deep-seated infection, such as vertebral osteomyelitis, discitis, and ICD-associated infection. Transferred to [facility] for advanced imaging and definitive source evaluation. Arrives having already received 2 full days of appropriate antibiotic coverage. - admit to 8E - consulting ID given MSSA + ICD + possible OM/discitis - repeat blood cultures drawn on 06/24 - obtain TTE; will likely need LINDA unless goals of care change - needs MRI thoracic/lumbar spine; must confirm make/model of biventricular ICD first, however - continue cefazolin * Assessment & Plan Note - Sudarshan Lovett MD - 06/25/2025 8:28 AM EST Associated Problem(s): S/P TURP (transurethral resection of prostate) 89 y/o M with PMH of HFrEF s/p biventricular ICD, CAD s/p PCI, CKD3, and BPH s/p recent TURP admitted with MSSA bacteremia, most likely related to recent genitourinary instrumentation. This is occurring in the setting of subacute back pain and presence of an implantable cardiac device, both of which raise concern for deep-seated infection, such as vertebral osteomyelitis, discitis, and ICD-associated infection. Transferred to [facility] for advanced imaging and definitive source evaluation. Arrives having already received 2 full days of appropriate antibiotic coverage. - admit to 8E - consulting ID given MSSA + ICD + possible OM/discitis - repeat blood cultures drawn on 06/24 - obtain TTE; will likely need LINDA unless goals of care change - needs MRI thoracic/lumbar spine; must confirm make/model of biventricular ICD first, however - continue cefazolin * Assessment & Plan Note - Sudarshan Lovett MD - 06/25/2025 8:28 AM EST Associated Problem(s): MSSA bacteremia 89 y/o M with PMH of HFrEF s/p biventricular ICD, CAD s/p PCI, CKD3, and BPH s/p recent TURP admitted with MSSA bacteremia, most likely related to recent genitourinary instrumentation. This is occurring in the setting of subacute back pain and presence of an implantable cardiac device, both of which raise concern for deep-seated infection, such as vertebral osteomyelitis, discitis, and ICD-associated infection. Transferred to [facility] for advanced imaging and definitive source evaluation. Arrives having already received 2 full days of appropriate antibiotic coverage. - admit to 8E - consulting ID given MSSA + ICD + possible OM/discitis - repeat blood cultures drawn on 06/24 - obtain TTE; will likely need LINDA unless goals of care change - needs MRI thoracic/lumbar spine; must confirm make/model of biventricular ICD first, however - continue cefazolin * Assessment & Plan Note - Sudarshan Lovett MD - 06/25/2025 8:28 AM EST Associated Problem(s): Presence of implantable cardioverter-defibrillator (ICD) 89 y/o M with PMH of HFrEF s/p biventricular ICD, CAD s/p PCI, CKD3, and BPH s/p recent TURP admitted with MSSA bacteremia, most likely related to recent genitourinary instrumentation. This is occurring in the setting of subacute back pain and presence of an implantable cardiac device, both of which raise concern for deep-seated infection, such as vertebral osteomyelitis, discitis, and ICD-associated infection. Transferred to [facility] for advanced imaging and definitive source evaluation. Arrives having already received 2 full days of appropriate antibiotic coverage. - admit to 8E - consulting ID given MSSA + ICD + possible OM/discitis - repeat blood cultures drawn on 06/24 - obtain TTE; will likely need LINDA unless goals of care change - needs MRI thoracic/lumbar spine; must confirm make/model of biventricular ICD first, however - continue cefazolin * Assessment & Plan Note - Sudarshan Lovett MD - 06/25/2025 8:28 AM EST Associated Problem(s): Acute midline low back pain without sciatica 89 y/o M with PMH of HFrEF s/p biventricular ICD, CAD s/p PCI, CKD3, and BPH s/p recent TURP admitted with MSSA bacteremia, most likely related to recent genitourinary instrumentation. This is occurring in the setting of subacute back pain and presence of an implantable cardiac device, both of which raise concern for deep-seated infection, such as vertebral osteomyelitis, discitis, and ICD-associated infection. Transferred to [facility] for advanced imaging and definitive source evaluation. Arrives having already received 2 full days of appropriate antibiotic coverage. - admit to 8E - consulting ID given MSSA + ICD + possible OM/discitis - repeat blood cultures drawn on 06/24 - obtain TTE; will likely need LINDA unless goals of care change - needs MRI thoracic/lumbar spine; must confirm make/model of biventricular ICD first, however - continue cefazolin * Hospital Course - Joseph Garcia MD - 06/24/2025 7:33 PM EST 89 yo M admitted on 06/24/2025 with PMH of HFrEF s/p biventricular ICD, CAD s/p PCI, CKD3, BPH s/p TURP who presented for MSSA bacteremia likely related to recent genitourinary instrumentation. Bloodcultures initially showed 1/2 GPC on 06/24 and 06/26, with subsequent cultures from 06/28 showing no growth to date. MRI thoracic spine on 06/27 revealed T10 acute/subacute compression fracture with enhancement extending to T9 unable to rule out osteomyelitis, while MRI lumbar spine showed diffuse enhancement and marrow edema in S1 concerning for possible osteomyelitis. TTE and LINDA was negative for endocarditis. ID was consulted and recommended 6 weeks of cefazolin through 08/09/25. Neurosurgerywas consulted for the compression fracture and recommended outpatient follow up. Pain was controlled with prn oxycodone by time of discharge. He was also found to have OMARI and started on ferrous sulfate. An EGD showed no evidence of bleeding. Course c/b hyperglycemia which improved with insulin titration. By time of discharge, he was feeling much better and eager to get home. * Care Plan Note - Fritz Vega MD - 06/23/2025 1:29 PM EST Got called from [facility] for transfer. Patient is 89 y/o male wth hx of [facility] that presented with AMS and fever. Found to have hydronephrosis. Kimble placed. Patient also with severe back pain. No saddle anesthesia or incontinence. Blood cultures growing MSSA. Echo pending. Fritz Thorne MD documented in this encounter Plan of Treatment DateTypeDepartmentCare Team (Latest Contact Info)Oespmasaezt45/21/2026 11:00 AM ESTOffice Visit [facility] [address] [place], [place] [phone] Jacqueline Baptiste MD [address] [phone] NameTypePriorityAssociated DiagnosesOrder ScheduleECHOCARDIOGRAM, ADULT SERVICE REQUESTReferralRoutineSchedule One Time for 1 Occurrences starting 06/25/2025 until 06/25/2025VASCULAR PERIPHERAL VENOUS DUPLEX SCANReferralRoutineOne time for 1 Occurrences starting 06/25/2025 until 06/25/2025TRANSESOPHOGEAL ECHOCARDIOGRAM SERVICE RQSTReferralRoutineSchedule One Time for 1 Occurrences starting 06/27/2025 until 06/27/2025PRE-ADMISSION TESTING CONSULTReferralRoutine Anemia, unspecified type Anemia due to other cause, not classified Ordered: 06/28/2025NEUROSURGERY SERVICE REQUESTReferralRoutine Closed wedge compression fracture of T10 vertebra, initial encounter ([facility]) Ordered: 07/03/2025documented as of this encounter Procedures Procedure NamePriorityDate/TimeAssociated DiagnosisCommentsXR CHEST AP OR PA 1 JSWEUYZQ44/23/2025 11:57 AM EST GLUCOSE, FINGERSTICK-IN QQRPKTTgupzzw97/23/2025 11:13 AM EST XA PICC INSERT ADULT RN (VIDYA)Hlicusf6207/03/2025 10:58 AM ESTGLUCOSE, FINGERSTICK- IN BQCTDJJkusxnu69/23/2025 7:53 AM EST BASIC METABOLIC ZGRNNMpdxfvp83/23/2025 2:03 AM EST COMPLETE BLOOD VSQLSZfzhmvu85/23/2025 2:03 AM EST GLUCOSE, FINGERSTICK-IN YTPHSEOohnqpm18/22/2025 10:27 PM EST GLUCOSE, FINGERSTICK-IN LRTCBKKmoxaue52/22/2025 4:36 PM EST GLUCOSE, FINGERSTICK-IN QGSWQCFqvteme48/22/2025 11:47 AM EST GLUCOSE, FINGERSTICK-IN GAEIXVPqjfiiz89/22/2025 8:00 AM EST GLUCOSE, FINGERSTICK-IN OKYEOTZghxnqt03/22/2025 6:46 AM EST GLUCOSE, FINGERSTICK-IN HKIZXVLjisjlb06/22/2025 4:22 AM EST CBC WITH UJWQYFPJUXHFJyfgnlw20/22/2025 3:23 AM EST COMPLETE BLOOD COUNT W/FKGRRogfdhh13/22/2025 3:23 AM EST BASIC METABOLIC BJRLBSqczqxz93/22/2025 3:23 AM EST GLUCOSE, FINGERSTICK-IN FWZTLLYwrprsi73/22/2025 12:54 AM EST GLUCOSE, FINGERSTICK-IN FWDDAEYqqrwpm91/21/2025 9:59 PM EST GLUCOSE, FINGERSTICK-IN SLITNDTsfzoxx43/21/2025 4:43 PM EST GLUCOSE, FINGERSTICK-IN HQANWPXsttdsq10/21/2025 12:00 PM EST GLUCOSE, FINGERSTICK-IN UDKWXZSxxjsyn32/21/2025 7:40 AM EST CBC WITH XTSJAZRERETGGudsdnz70/21/2025 5:24 AM EST COMPLETE BLOOD COUNT W/BIPFUnnbwdv85/21/2025 5:24 AM EST BASIC METABOLIC HBLXEOsgyvdk25/21/2025 5:24 AM EST GLUCOSE, FINGERSTICK-IN OJTPIPMelpwtz00/20/2025 8:41 PM EST GLUCOSE, FINGERSTICK-IN LIVISWRdhmpyc86/20/2025 4:37 PM EST CBC WITH MTAVSJGVBPPLNzztdpd77/20/2025 11:29 AM EST COMPLETE BLOOD COUNT W/VWVGPkazlkf58/20/2025 11:29 AM EST BASIC METABOLIC MSUQTIaofgcs85/20/2025 11:29 AM EST GLUCOSE, FINGERSTICK-IN TNQPVADmbalvp96/20/2025 11:18 AM EST GLUCOSE, FINGERSTICK-IN YORACNXoiemqm93/20/2025 8:03 AM EST GLUCOSE, FINGERSTICK-IN XXLBEKHltjtqv24/20/2025 3:23 AM EST GLUCOSE, FINGERSTICK-IN TSRNEOUawekjl56/19/2025 8:27 PM EST GLUCOSE, FINGERSTICK-IN JRMJWXZyvmlqo08/19/2025 7:04 PM EST GLUCOSE, FINGERSTICK-IN OMKFAVSejklxt70/19/2025 6:38 PM EST GLUCOSE, FINGERSTICK-IN QAXZWSNadzbax33/19/2025 5:34 PM EST UPPER GI ENDOSCOPY; DX, W/WO SPECIMEN COLLECTION, BRUSHING/WASHING (SEP PROC) Nxkyfjb5806/29/2025 5:09 PM EST Anemia, unspecified type Anemia due to other cause, not classified Upper GI Endoscopy; W/Biopsy, Single/Osqpwdjw07/19/2025 4:40 PM EST Anemia due to other cause, not classified Upper Gi Endoscopy; Dx, W/Wo Specimen Collection, Brushing/Washing (Sep Proc) 06/29/2025 4:40 PM EST Anemia due to other cause, not classified GLUCOSE, FINGERSTICK-IN EXCXRFUtzpltm90/19/2025 4:18 PM EST GLUCOSE, FINGERSTICK-IN KHLQCLSmxsupp79/19/2025 3:55 PM EST GLUCOSE, FINGERSTICK-IN TBHKALXdbtoyb21/19/2025 2:01 PM EST GLUCOSE, FINGERSTICK-IN OUGCHUKpqzjbj31/19/2025 11:51 AM EST BASIC METABOLIC HDUFADjbyxmq47/19/2025 11:46 AM EST PROTHROMBIN TIME AND UBUFzabxat01/19/2025 11:46 AM EST FNJXjxajqx49/19/2025 11:22 AM EST PLASMA RRTLDRQrvtxza05/19/2025 11:22 AM EST PLASMA MQAXEELriopfq88/19/2025 11:22 AM EST GLUCOSE, FINGERSTICK-IN IKINPTWtkidlu04/19/2025 11:21 AM EST GLUCOSE, FINGERSTICK-IN EVFMKYNlhbsui61/19/2025 7:12 AM EST GLUCOSE, FINGERSTICK-IN YTTMEBOlknwoa84/19/2025 5:49 AM EST GLUCOSE, FINGERSTICK-IN ZJFKQCMdfmnbu98/19/2025 5:35 AM EST GLUCOSE, FINGERSTICK-IN CPBHFFTrpmslt10/19/2025 5:21 AM EST CBC WITH HVIVMZPNEDZTUuesugq24/19/2025 4:34 AM EST COMPLETE BLOOD COUNT W/XFDKEcafwpt35/19/2025 4:34 AM EST HC HEPATIC FUNCTION PANELLab Add-On06/29/2025 4:34 AM EST BASIC METABOLIC FHTNZPzvszcc59/19/2025 4:34 AM EST TYPE AND HKBIDRNuarnqw22/19/2025 4:34 AM EST PROTHROMBIN TIME AND PYNGwgghaa38/19/2025 4:34 AM EST PARTIAL THROMBOPLASTIN MHZBImrtwfn10/19/2025 4:34 AM EST PHOSPHORUSLab Add-On06/29/2025 4:34 AM EST GLUCOSE, FINGERSTICK-IN OOSBYKXxjnahw33/18/2025 9:36 PM EST XR T-SPINE 3 MQDTKRemwqpw76/18/2025 7:13 PM EST XR L-SPINE AP+LATERAL 2-3 LKBRNUlseswy28/18/2025 7:13 PM EST GLUCOSE, FINGERSTICK-IN IOJNAQYeaiglc89/18/2025 4:49 PM EST BLOOD QDXRCKTEqyzhgz58/18/2025 12:37 PM EST GLUCOSE, FINGERSTICK-IN VZOJBUCghjisb86/18/2025 11:18 AM EST GLUCOSE, FINGERSTICK-IN KDYZBPUqvvulm18/18/2025 7:46 AM EST BLOOD UDNRQJLHpmcppx43/18/2025 5:58 AM EST CBC WITH CKWIQZLQDVHKCjbucdj85/18/2025 1:35 AM EST COMPLETE BLOOD COUNT W/MEPZGryagbb85/18/2025 1:35 AM EST BASIC METABOLIC TTIJIGubjlli39/18/2025 1:35 AM EST IRON AND TIBCLab Add-On06/28/2025 1:35 AM EST FERRITINLab Add-On06/28/2025 1:35 AM EST GLUCOSE, FINGERSTICK-IN ZNLMTYLgdbpkn16/17/2025 10:12 PM EST GLUCOSE, FINGERSTICK-IN IOHIJCRmvyawg20/17/2025 4:02 PM EST PERCY-PROCEDURAL DEVICE EVAL, SINGLE, DUAL, MULTIPLE LEAD OR LEADLESS PACEMAKER ANPDACKfqdjld81/17/2025 3:03 PM ESTMR L-SPINE W/+W/OSTAT108/28/2024 2:50 PM EST MR T-SPINE W/+W/OSTAT108/28/2024 2:50 PM EST GLUCOSE, FINGERSTICK-IN TXWCQIMacpdqo91/17/2025 8:20 AM EST CBC WITH HVLQJPWWXOEORbzpjta92/17/2025 5:43 AM EST COMPLETE BLOOD COUNT W/UZMDQscbinm73/17/2025 5:43 AM EST BASIC METABOLIC OGOXBKbrsauy97/17/2025 5:43 AM EST TMQLIAZROPXTxdmdkk92/17/2025 5:43 AM EST QGZZixzbfb50/17/2025 5:43 AM EST IRON AND XCPJYizvtmo02/17/2025 5:43 AM EST FOLIC CRDIWemwepf64/17/2025 5:43 AM EST FJWBTFOPHdxzilr42/17/2025 5:43 AM EST VITAMIN B12 (CYANOCOBALAMIN)Vwhkrub0906/27/2025 5:43 AM EST GLUCOSE, FINGERSTICK-IN NATYSFNheapkh21/16/2025 9:20 PM EST GLUCOSE, FINGERSTICK-IN ZWDIJQYlicdbf05/16/2025 4:31 PM EST BLOOD FOVBVVGOgvhbug44/16/2025 3:09 PM EST BLOOD TWCTPHAZuuzffn21/16/2025 3:00 PM EST OCCULT BLOOD, CWBDBHMSL22/16/2025 11:39 AM EST GLUCOSE, FINGERSTICK-IN RHDSIISntaegl35/16/2025 11:34 AM EST GLUCOSE, FINGERSTICK-IN BNAIHANumypmj22/16/2025 7:54 AM EST CBC WITH LMREZXRWTMKAPitikrc04/16/2025 4:10 AM EST PROCALCITONINLab Add-On06/26/2025 4:10 AM EST COMPLETE BLOOD COUNT W/PMVEItyxsdo19/16/2025 4:10 AM EST BASIC METABOLIC IYALPYlrewhz35/16/2025 4:10 AM EST CONFIRMATION ABO/EDBsyyuxs47/16/2025 4:10 AM EST MANUAL DIFF AND IQKYVGihnpse64/16/2025 4:10 AM EST ERYTHROCYTE SEDIMENTATION RATELab Add-On06/26/2025 4:10 AM EST C-REACTIVE PROTEINLab Add-On06/26/2025 4:10 AM EST GLUCOSE, FINGERSTICK-IN XLOHGMIcutwhg54/15/2025 9:35 PM EST GLUCOSE, FINGERSTICK-IN TZKWZCYsrclmw45/15/2025 5:41 PM EST INTERROGATION DEVICE EVAL, IN PERSON, SINGLE, DUAL, MULTIPLE LEAD IMPLANTABLE DEFIBRILLATOR XSTRDFTcwfyng82/15/2025 3:05 PM EST Presence of implantable cardioverter-defibrillator (ICD) HFrEF (heart failure with reduced ejection fraction) XR CHEST AP OR PA 1 UFSMASQT55/15/2025 2:16 PM EST GLUCOSE, FINGERSTICK-IN OVNLAQNwvrckp46/15/2025 12:06 PM EST GLUCOSE, FINGERSTICK-IN OSUXUVYhoytxy37/15/2025 7:46 AM EST GLUCOSE, FINGERSTICK-IN LCGTDKUvdyygs84/14/2025 9:32 PM EST CBC WITH DJIFYFOSSFJAVjhabkk51/14/2025 8:52 PM EST COMPLETE BLOOD COUNT W/GQBESdpinzm07/14/2025 8:52 PM EST BASIC METABOLIC JUUMANnhuuky65/14/2025 8:52 PM EST TYPE AND CYVACGLgljcht49/14/2025 8:52 PM EST BLOOD DSFAAZWWLRY77/14/2025 8:52 PM EST BLOOD WQUAFOYCJRR09/14/2025 8:52 PM EST documented in this encounter Results * XR CHEST AP OR PA 1 VIEW (07/03/2025 11:57 AM EST)Anatomical RegionLaterality ModalityXR ChestN/AComputed RadiographySpecimen (Source)Anatomical Location / LateralityCollection Method / VolumeCollection TimeReceived Time07/03/2025 11:59 AM EST Impressions 07/03/2025 12:02 PM EST 1. Insertion of a right extremity PICC line which is in satisfactory position. 2. ??No acute cardiopulmonary findings. 3. ??Dual-chamber AICD device. MACRO: None Narrative 07/03/2025 12:02 PM EST EXAMINATION: XR CHEST AP OR PA 1 VIEWPRO 07/03/2025 11:57 AM CLINICAL HISTORY: Central line assessment ASSOCIATED DIAGNOSIS: Central line assessment ORDERING PROVIDER: JOSEPH GARCIA TECHNOLOGISTS NOTE: COMPARISON: XR CHEST AP OR PA 1 VIEW 06/25/2025 2:17 PM FINDINGS: Position and projection: AP erect. Limitations: None. Clinical considerations: Obtained from EMR. Lines, tubes, and devices: Right extremity PICC line terminates overlying the superior cavoatrial junction region. Left chest implanted dual-chamber AICD device with its leads terminating overlying the regions of the right atrial appendage and right ventricle. Cardiomediastinal silhouette: Upper limits normal heart size. Lungs and pleura: No pulmonary consolidation, pleural effusion or pneumothorax. Osseous structures: Osteopenia, bilateral glenohumeral joint osteoarthritis and mild osteophytic endplate spurring of multiple thoracic vertebra. Chest and abdominal wall: Glucometer overlies the medial left upper arm. Included upper abdomen: Epigastric surgical clips. Procedure Note Santy Salazar, DO - 07/03/2025 EXAMINATION: XR CHEST AP OR PA 1 VIEWPRO 07/03/2025 11:57 AM CLINICAL HISTORY: Central line assessment ASSOCIATED DIAGNOSIS: Central line assessment ORDERING PROVIDER: JOSEPH GARCIA TECHNOLOGISTS NOTE: COMPARISON: XR CHEST AP OR PA 1 VIEW 06/25/2025 2:17 PM FINDINGS: Position and projection: AP erect. Limitations: None. Clinical considerations: Obtained from EMR. Lines, tubes, and devices: Right extremity PICC line terminates overlying the superior cavoatrialjunction region. Left chest implanted dual-chamber AICD device with its leads terminating overlying the regions of the right atrial appendage and right ventricle. Cardiomediastinal silhouette: Upper limits normal heart size. Lungs and pleura: No pulmonary consolidation, pleural effusion orpneumothorax. Osseous structures: Osteopenia, bilateral glenohumeral jointosteoarthritis and mild osteophytic endplate spurring of multiple thoracicvertebra. Chest and abdominal wall: Glucometer overlies the medial left upper arm. Included upper abdomen: Epigastric surgical clips. IMPRESSION: 1. Insertion of a right extremity PICC line which is in satisfactoryposition. 2. No acute cardiopulmonary findings. 3. Dual-chamber AICD device. MACRO: None Authorizing ProviderResult TypeResult StatusJoseph Garcia MDEC DIAGNOSTIC X-RAY 2 Final Result * (ABNORMAL) GLUCOSE, FINGERSTICK-IN OFFICE (07/03/2025 11:13 AM EST)Component ValueRef RangeTest MethodAnalysis TimePerformed AtPathologist Signature Glucose, AKS302(H)74 - 109 mg/dL07/03/2025 11:20 AM ESTNURSING GLUCOSE PROGRAM Specimen (Source)Anatomical Location / LateralityCollection Method / Volume Collection TimeReceived TimeBloodBLOOD SPECIMEN / Duxsaev1907/03/2025 11:13 AM EST07/03/2025 11:20 AM EST Narrative Authorizing ProviderResult TypeResult StatusTo Be AssignedEC BACK OFFICE LABS Final ResultPerforming OrganizationAddressCity/State/ZIP CodePhone Number NURSING GLUCOSE PROGRAM [address] [place] [phone] * XA PICC INSERT ADULT RN (VIDYA) (07/03/2025 10:58 AM EST)Specimen (Source) Anatomical Location / LateralityCollection Method / VolumeCollection Time Received Time Narrative Authorizing ProviderResult TypeResult StatusLafaheem [facility] INVASIVE RADIOLOGY Final Result * (ABNORMAL) GLUCOSE, FINGERSTICK-IN OFFICE (07/03/2025 7:53 AM EST)Component ValueRef RangeTest MethodAnalysis TimePerformed AtPathologist Signature Glucose, NFK901(H)74 - 109 mg/dL07/03/2025 8:02 AM ESTNURSING GLUCOSE PROGRAM Specimen (Source)Anatomical Location / LateralityCollection Method / Volume Collection TimeReceived TimeBloodBLOOD SPECIMEN / Vkyhbxq4207/03/2025 7:53 AM EST07/03/2025 8:02 AM EST Narrative Authorizing ProviderResult TypeResult StatusTo Be AssignedEC BACK OFFICE LABS Final ResultPerforming OrganizationAddressCity/State/ZIP CodePhone Number NURSING GLUCOSE PROGRAM [address] [place], [place] [address] [address] * (ABNORMAL) BASIC METABOLIC PANEL (07/03/2025 2:03 AM EST)ComponentValueRef RangeTest MethodAnalysis TimePerformed AtPathologist RccgywisgPdjzhdf977(H)74 - 109 mg/dL07/03/2025 3:23 AM EST[facility] WOXQDFMTYFNfhyov584(L)136 - 145 mmol/L109/03/2024 3:23 AM ESTS PATHOLOGY LABORATORYPotassium4.83.5 - 5.0 mmol/L109/03/2024 3:23 AM [facility] PATHOLOGY LABORATORYCarbon Cpppilg7958 - 31 mmol/L109/03/2024 3:23 AM ESTS PATHOLOGY SUHFOWLDOAOspwoxdy49947 - 107 mmol/L 07/03/2025 3:23 AM ESTS PATHOLOGY LABORATORYBlood Urea Hkgmoqex506 - 25 mg/dL07/03/2025 3:23 AM [facility] PATHOLOGY LABORATORYCreatinine0.990.70 - 1.30 mg/dL07/03/2025 3:23 AM [facility] PATHOLOGY LABORATORYCalcium8.0(L)8.6 - 10.3 mg/dL07/03/2025 3:23 AM EST[facility] PATH[facility] LABORATORYAnion Fds5869 - 20 07/03/2025 3:23 AM [facility] PATHOLOGY LABORATORYEstimated GFR (CKD-EPI)73>=60 mL/min/1.43snc2109/03/2024 3:23 AM [facility] PATHOLOGY LABORATORYComment: 2020 CKD EPI Equation using Creatinine without Race Comment: ??Estimated glomerular filtration rate (eGFR) is calculated without a race coefficient. Values should be interpreted in the context of the patient's full clinical presentation. Reference: 1. Geoff Mcintosh, Shirley M, Rossana GUNDERSON, et al.. A Unifying Approach for GFR Estimation: Recommendations of the NKF-ASN Task Force on Reassessing the Inclusion of Race in Diagnosing Kidney Disease. AmericanJournal of Kidney Diseases 2021;79(2):268-88.e1. 2. N Engl J Med 1 Vol. 385 Issue 19 Pages 1246-6596 Specimen (Source)Anatomical Location / LateralityCollection Method / Volume Collection TimeReceived TimeBloodBLOOD SPECIMEN / UnknownVenipuncture / Unknown 07/03/2025 2:03 AM EST07/03/2025 2:57 AM EST Narrative Authorizing ProviderResult TypeResult StatusLauren Deneen OGLESBY98 GENERAL LABFinal ResultPerforming OrganizationAddressCity/State/ZIP CodePhone Number [facility] PATHOLOGY LABORATORY [address] [place] [phone] * (ABNORMAL) COMPLETE BLOOD COUNT (07/03/2025 2:03 AM EST)ComponentValueRef RangeTest MethodAnalysis TimePerformed AtPathologist SignatureWBC7.74.5 - 11.5 K/uL07/03/2025 3:07 AM [facility] PATHOLOGY LABORATORYRBC3.25(L)4.50 - 5.90 M/uL 07/03/2025 3:07 AM [facility] PATHOLOGY LABORATORYHemoglobin8.5(L)13.9 - 16.3 g/dL 07/03/2025 3:07 AM [facility] PATHOLOGY HIPLCZLMIJFviufpgqxw99.4(L)41.0 - 53.0 % 07/03/2025 3:07 AM [facility] PATHOLOGY HRWEUHIPZAHJW1330 - 100 fL07/03/2025 3:07 AM [facility] PATHOLOGY IZOWDIXVKILCW66.326.0 - 34.0 pg07/03/2025 3:07 AM [facility] PATHOLOGY HOMZMZAKZOXBEA38.332.0 - 35.9 g/dL07/03/2025 3:07 AM [facility] PATHOLOGY FLSHXKFMQBYpbvrpzp638020 - 400 K/uL07/03/2025 3:07 AM [facility] PATHOLOGY LABORATORYRDW-CV16.1(H)11.5 - 14.5 %07/03/2025 3:07 AM [facility] PATHOLOGY LABORATORYMPV9.97.5 - 11.2 fL07/03/2025 3:07 AM [facility] PATHOLOGY LABORATORYSpecimen (Source)Anatomical Location / LateralityCollection Method / VolumeCollection TimeReceived TimeBloodBLOOD SPECIMEN / UnknownVenipuncture / Vplyskp2907/03/2025 2:03 AM EST07/03/2025 2:57 AM EST Narrative Authorizing ProviderResult TypeResult StatusLafaheem Garcia MD98 GENERAL LABFinal ResultPerforming OrganizationAddressCity/State/ZIP CodePhone Number [facility] PATHOLOGY LABORATORY [address] [place] [phone] * (ABNORMAL) GLUCOSE, FINGERSTICK-IN OFFICE (07/02/2025 10:27 PM EST)Component ValueRef RangeTest MethodAnalysis TimePerformed AtPathologist Signature Glucose, NGP574(H)74 - 109 mg/dL07/02/2025 10:34 PM ESTNURSING GLUCOSE PROGRAM Specimen (Source)Anatomical Location / LateralityCollection Method / Volume Collection TimeReceived TimeBloodBLOOD SPECIMEN / Cvcgmnt6207/02/2025 10:27 PM EST07/02/2025 10:34 PM EST Narrative Authorizing ProviderResult TypeResult StatusTo Be AssignedEC BACK OFFICE LABS Final ResultPerforming OrganizationAddressCity/State/ZIP CodePhone Number NURSING GLUCOSE PROGRAM [address] [place] [address] * (ABNORMAL) GLUCOSE, FINGERSTICK-IN OFFICE (07/02/2025 4:36 PM EST)Component ValueRef RangeTest MethodAnalysis TimePerformed AtPathologist Signature Glucose, CQL555(H)74 - 109 mg/dL07/02/2025 4:42 PM ESTNURSING GLUCOSE PROGRAM Specimen (Source)Anatomical Location / LateralityCollection Method / Volume Collection TimeReceived TimeBloodBLOOD SPECIMEN / Dqspfyl4407/02/2025 4:36 PM EST07/02/2025 4:42 PM EST Narrative Authorizing ProviderResult TypeResult StatusTo Be AssignedEC BACK OFFICE LABS Final ResultPerforming OrganizationAddressCity/State/ZIP CodePhone Number NURSING GLUCOSE PROGRAM [address] [place] [address] * (ABNORMAL) GLUCOSE, FINGERSTICK-IN OFFICE (07/02/2025 11:47 AM EST)Component ValueRef RangeTest MethodAnalysis TimePerformed AtPathologist Signature Glucose, WVD023(H)74 - 109 mg/dL07/02/2025 11:54 AM ESTNURSING GLUCOSE PROGRAM Specimen (Source)Anatomical Location / LateralityCollection Method / Volume Collection TimeReceived TimeBloodBLOOD SPECIMEN / Codbyim8107/02/2025 11:47 AM EST07/02/2025 11:54 AM EST Narrative Authorizing ProviderResult TypeResult StatusTo Be AssignedEC BACK OFFICE LABS Final ResultPerforming OrganizationAddressCity/State/ZIP CodePhone Number NURSING GLUCOSE PROGRAM [address] [place] [phone] * (ABNORMAL) GLUCOSE, FINGERSTICK-IN OFFICE (07/02/2025 8:00 AM EST)Component ValueRef RangeTest MethodAnalysis TimePerformed AtPathologist Signature Glucose, DKQ932(H)74 - 109 mg/dL07/02/2025 8:06 AM ESTNURSING GLUCOSE PROGRAM Specimen (Source)Anatomical Location / LateralityCollection Method / Volume Collection TimeReceived TimeBloodBLOOD SPECIMEN / Zpnjswx1507/02/2025 8:00 AM EST07/02/2025 8:06 AM EST Narrative Authorizing ProviderResult TypeResult StatusTo Be AssignedEC BACK OFFICE LABS Final ResultPerforming OrganizationAddMoses Taylor Hospitalty/State/ZIP CodePhone Number NURSING GLUCOSE PROGRAM [address] [place] [phone] * (ABNORMAL) GLUCOSE, FINGERSTICK-IN OFFICE (07/02/2025 6:46 AM EST)Component ValueRef RangeTest MethodAnalysis TimePerformed AtPathologist Signature Glucose, JAK778(H)74 - 109 mg/dL07/02/2025 6:53 AM ESTNURSING GLUCOSE PROGRAM Specimen (Source)Anatomical Location / LateralityCollection Method / Volume Collection TimeReceived TimeBloodBLOOD SPECIMEN / Rgczuje8407/02/2025 6:46 AM EST07/02/2025 6:53 AM EST Narrative Authorizing ProviderResult TypeResult StatusTo Be AssignedEC BACK OFFICE LABS Final ResultPerforming OrganizationAddressCity/State/ZIP CodePhone Number NURSING GLUCOSE PROGRAM [address] [place] [address] * (ABNORMAL) GLUCOSE, FINGERSTICK-IN OFFICE (07/02/2025 4:22 AM EST)Component ValueRef RangeTest MethodAnalysis TimePerformed AtPathologist Signature Glucose, MOE878(H)74 - 109 mg/dL07/02/2025 4:28 AM ESTNURSING GLUCOSE PROGRAM Specimen (Source)Anatomical Location / LateralityCollection Method / Volume Collection TimeReceived TimeBloodBLOOD SPECIMEN / Gtmzayv6007/02/2025 4:22 AM EST07/02/2025 4:28 AM EST Narrative Authorizing ProviderResult TypeResult StatusTo Be AssignedEC BACK OFFICE LABS Final ResultPerforming OrganizationAddressCity/State/ZIP CodePhone Number NURSING GLUCOSE PROGRAM [address] [place] [phone] * (ABNORMAL) CBC WITH DIFFERENTIAL (07/02/2025 3:23 AM EST)ComponentValueRef RangeTest MethodAnalysis TimePerformed AtPathologist SignatureWBC8.34.5 - 11.5 K/uL07/02/2025 3:41 AM [facility] PATHOLOGY LABORATORYRBC3.17(L)4.50 - 5.90 M/uL 07/02/2025 3:41 AM ESTS PATHOLOGY LABORATORYHemoglobin8.6(L)13.9 - 16.3 g/dL 07/02/2025 3:41 AM [facility] PATHOLOGY QGAJTBFKAVKdxwmaigrf54.2(L)41.0 - 53.0 % 07/02/2025 3:41 AM [facility] PATHOLOGY PKANWYWEIZFXJ3210 - 100 fL07/02/2025 3:41 AM [facility] PATHOLOGY CRFNKMRPLMGTJ33.026.0 - 34.0 pg07/02/2025 3:41 AM [facility] PATHOLOGY USREAZXANAITOU08.932.0 - 35.9 g/dL07/02/2025 3:41 AM [facility] PATHOLOGY KSKPEYTNNYEpueoftz564(H)150 - 400 K/uL07/02/2025 3:41 AM [facility] PATHOLOGY LABORATORYRDW-CV15.5(H)11.5 - 14.5 %07/02/2025 3:41 AM [facility] PATHOLOGY LABORATORYMPV9.77.5 - 11.2 fL07/02/2025 3:41 AM [facility] PATHOLOGY NNLJKTHACWZowngmnefwh73.631.0 - 76.0 %07/02/2025 3:41 AM [facility] PATHOLOGY LABORATORYNeutrophil #5.911.50 - 8.00 K/uL07/02/2025 3:41 AM [facility] PATHOLOGY VOXXBMWSPBMfmnpxfvpfx71.2(L)24.0 - 44.0 %07/02/2025 3:41 AM [facility] PATHOLOGY LABORATORYLymphocytes #1.091.00 - 4.80 K/uL07/02/2025 3:41 AM [facility] PATHOLOGY JFOEYAWFQHLnvpnjsfn52.8(H)2.0 - 11.0 %07/02/2025 3:41 AM [facility] PATHOLOGY LABORATORYMonocyte #1.06(H)0.20 - 1.00 K/uL07/02/2025 3:41 AM [facility] PATHOLOGY LABORATORYEosinophil1.10.1 - 4.0 %07/02/2025 3:41 AM [facility] PATHOLOGY LABORATORYEosinophil #0.090.00 - 0.70 K/uL07/02/2025 3:41 AM [facility] PATHOLOGY LABORATORYBasophils1.3<=1.9 %07/02/2025 3:41 AM [facility] PATH[facility] LABOR[facility] Basophil #0.110.00 - 0.20 K/uL07/02/2025 3:41 AM [facility] PATH[facility] LABORATORY Specimen (Source)Anatomical Location / LateralityCollection Method / Volume Collection TimeReceived TimeBloodBLOOD SPECIMEN / UnknownVenipuncture / Gtdykip4907/02/2025 3:23 AM EST07/02/2025 3:34 AM EST Narrative Authorizing ProviderResult TypeResult StatusGhdonnie ESPARZA LAB ORDER ONLY Final ResultPerforming OrganizationAddressCity/State/ZIP CodePhone Number [facility] [address] [place] [address] * (ABNORMAL) BASIC METABOLIC PANEL (07/02/2025 3:23 AM EST)ComponentValueRef RangeTest MethodAnalysis TimePerformed AtPathologist EtvjdiruaMekcgyw395(H)74 - 109 mg/dL07/02/2025 3:58 AM [facility] PATHOLOGY VSJGMNXMCPOsqjyj021(L)136 - 145 mmol/L109/02/2024 3:58 AM [facility] PATHOLOGY LABORATORYPotassium4.73.5 - 5.0 mmol/L109/02/2024 3:58 AM [facility] PATHOLOGY LABORATORYCarbon Xpgdcxp9687 - 31 mmol/L109/02/2024 3:58 AM [facility] PATHOLOGY NGLRKNZEDIYhpkvhqz82196 - 107 mmol/L 07/02/2025 3:58 AM [facility] PATHOLOGY LABORATORYBlood Urea Usbkxrsu607 - 25 mg/dL07/02/2025 3:58 AM [facility] PATHOLOGY LABORATORYCreatinine0.990.70 - 1.30 mg/dL07/02/2025 3:58 AM [facility] PATHOLOGY LABORATORYCalcium7.9(L)8.6 - 10.3 mg/dL07/02/2025 3:58 AM [facility] PATHOLOGY LABORATORYAnion Smp4952 - 20 07/02/2025 3:58 AM [facility] PATHOLOGY LABORATORYEstimated GFR (CKD-EPI)73>=60 mL/min/1.52sct5309/02/2024 3:58 AM [facility] PATHOLOGY LABORATORYComment: 2020 CKD EPI Equation using Creatinine without Race Comment: ??Estimated glomerular filtration rate (eGFR) is calculated without a race coefficient. Values should be interpreted in the context of the patient's full clinical presentation. Reference: 1. eGoff C, Shirley M, Rossana GUNDERSON, et al.. A Unifying Approach for GFR Estimation: Recommendations of the NKF-ASN Task Force on Reassessing the Inclusion of Race in Diagnosing Kidney Disease. AmericanJournal of Kidney Diseases 202;79(2):268-88.e1. 2. N Engl J Med 2021 Vol. 385 Issue 19 Pages 3092-0165 Specimen (Source)Anatomical Location / LateralityCollection Method / Volume Collection TimeReceived TimeBloodBLOOD SPECIMEN / UnknownVenipuncture / Unknown 07/02/2025 3:23 AM EST07/02/2025 3:34 AM EST Narrative Authorizing ProviderResult TypeResult StatusGhdonnie Lovett MD98 GENERAL LAB Final ResultPerforming OrganizationAddressCity/State/ZIP CodePhone Number [facility] PATHOLOG[facility] LABORATORY [address] [place] [phone] * (ABNORMAL) GLUCOSE, FINGERSTICK-IN OFFICE (07/02/2025 12:54 AM EST)Component ValueRef RangeTest MethodAnalysis TimePerformed AtPathologist Signature Glucose, BDB344(H)74 - 109 mg/dL07/02/2025 1:00 AM ESTNURSING GLUCOSE PROGRAM Specimen (Source)Anatomical Location / LateralityCollection Method / Volume Collection TimeReceived TimeBloodBLOOD SPECIMEN / Phldexs5807/02/2025 12:54 AM EST07/02/2025 1:00 AM EST Narrative Authorizing ProviderResult TypeResult StatusTo Be AssignedEC BACK OFFICE LABS Final ResultPerforming OrganizationAddMoses Taylor Hospitalty/State/ZIP CodePhone Number NURSING GLUCOSE PROGRAM [address] [place] [phone] * (ABNORMAL) GLUCOSE, FINGERSTICK-IN OFFICE (07/01/2025 9:59 PM EST)Component ValueRef RangeTest MethodAnalysis TimePerformed AtPathologist Signature Glucose, KMM160(H)74 - 109 mg/dL07/01/2025 10:05 PM ESTNURSING GLUCOSE PROGRAM Specimen (Source)Anatomical Location / LateralityCollection Method / Volume Collection TimeReceived TimeBloodBLOOD SPECIMEN / Loywtmx2707/01/2025 9:59 PM EST07/01/2025 10:05 PM EST Narrative Authorizing ProviderResult TypeResult StatusTo Be AssignedEC BACK OFFICE LABS Final ResultPerforming OrganizationAddMoses Taylor Hospitalty/State/ZIP CodePhone Number NURSING GLUCOSE PROGRAM [address] [place] [phone] * (ABNORMAL) GLUCOSE, FINGERSTICK-IN OFFICE (07/01/2025 4:43 PM EST)Component ValueRef RangeTest MethodAnalysis TimePerformed AtPathologist Signature Glucose, JRN156(H)74 - 109 mg/dL07/01/2025 4:50 PM ESTNURSING GLUCOSE PROGRAM Specimen (Source)Anatomical Location / LateralityCollection Method / Volume Collection TimeReceived TimeBloodBLOOD SPECIMEN / Woxreqa6107/01/2025 4:43 PM EST07/01/2025 4:50 PM EST Narrative Authorizing ProviderResult TypeResult StatusTo Be AssignedEC BACK OFFICE LABS Final ResultPerforming OrganizationAddMoses Taylor Hospitalty/State/ZIP CodePhone Number NURSING GLUCOSE PROGRAM [address] [place] [phone] * (ABNORMAL) GLUCOSE, FINGERSTICK-IN OFFICE (07/01/2025 12:00 PM EST)Component ValueRef RangeTest MethodAnalysis TimePerformed AtPathologist Signature Glucose, IFR763(H)74 - 109 mg/dL07/01/2025 12:06 PM ESTNURSING GLUCOSE PROGRAM Specimen (Source)Anatomical Location / LateralityCollection Method / Volume Collection TimeReceived TimeBloodBLOOD SPECIMEN / Xzjjehg8607/01/2025 12:00 PM EST07/01/2025 12:06 PM EST Narrative Authorizing ProviderResult TypeResult StatusTo Be AssignedEC BACK OFFICE LABS Final ResultPerforming OrganizationAddressty/State/ZIP CodePhone Number NURSING GLUCOSE PROGRAM [address] [place] [phone] * (ABNORMAL) GLUCOSE, FINGERSTICK-IN OFFICE (07/01/2025 7:40 AM EST)Component ValueRef RangeTest MethodAnalysis TimePerformed AtPathologist Signature Glucose, NHA863(H)74 - 109 mg/dL07/01/2025 7:46 AM ESTNURSING GLUCOSE PROGRAM Specimen (Source)Anatomical Location / LateralityCollection Method / Volume Collection TimeReceived TimeBloodBLOOD SPECIMEN / Tqiqvns4207/01/2025 7:40 AM EST07/01/2025 7:46 AM EST Narrative Authorizing ProviderResult TypeResult StatusTo Be AssignedEC BACK OFFICE LABS Final ResultPerforming OrganizationAddressty/State/ZIP CodePhone Number NURSING GLUCOSE PROGRAM [address] [place] [phone] * (ABNORMAL) CBC WITH DIFFERENTIAL (07/01/2025 5:24 AM EST)ComponentValueRef RangeTest MethodAnalysis TimePerformed AtPathologist SignatureWBC6.44.5 - 11.5 K/uL07/01/2025 6:06 AM [facility] PATHOLOGY LABORATORYRBC3.45(L)4.50 - 5.90 M/uL 07/01/2025 6:06 AM [facility] PATHOLOGY LABORATORYHemoglobin9.0(L)13.9 - 16.3 g/dL 07/01/2025 6:06 AM [facility] PATHOLOGY EWNZKGYMCIZsjfpmcqyo50.8(L)41.0 - 53.0 % 07/01/2025 6:06 AM [facility] PATHOLOGY TGYGXGDWNIXHC8412 - 100 fL07/01/2025 6:06 AM [facility] PATHOLOGY LWKFLYHBFTZVB33.126.0 - 34.0 pg07/01/2025 6:06 AM [facility] PATHOLOGY QFCXVXUGKSVZNE85.432.0 - 35.9 g/dL07/01/2025 6:06 AM [facility] PATHOLOGY IRILEMMLPZPkhsrgqm306(H)150 - 400 K/uL07/01/2025 6:06 AM [facility] PATHOLOGY LABORATORYRDW-CV15.6(H)11.5 - 14.5 %07/01/2025 6:06 AM [facility] PATHOLOGY LABORATORYMPV9.77.5 - 11.2 fL07/01/2025 6:06 AM [facility] PATHOLOGY YRTNWBZSULUaukyuxdixg59.331.0 - 76.0 %07/01/2025 6:06 AM [facility] PATHOLOGY LABORATORYNeutrophil #4.291.50 - 8.00 K/uL07/01/2025 6:06 AM [facility] PATHOLOGY LHKQVFFLCGVndwucqsglj86.3(L)24.0 - 44.0 %07/01/2025 6:06 AM [facility] PATHOLOGY LABORATORYLymphocytes #1.231.00 - 4.80 K/uL07/01/2025 6:06 AM [facility] PATHOLOGY UBAXTGOWWQOvcziptoe77.82.0 - 11.0 %07/01/2025 6:06 AM [facility] PATHOLOGY LABORATORYMonocyte #0.690.20 - 1.00 K/uL07/01/2025 6:06 AM [facility] PATHOLOGY LABORATORYEosinophil1.30.1 - 4.0 %07/01/2025 6:06 AM [facility] PATHOLOGY LABORATORYEosinophil #0.090.00 - 0.70 K/uL07/01/2025 6:06 AM [facility] PATHOLOGY LABORATORYBasophils1.2<=1.9 %07/01/2025 6:06 AM [facility] PATHOLOGY LABORATORY Basophil #0.080.00 - 0.20 K/uL07/01/2025 6:06 AM [facility] PATHOLOGY LABORATORY Specimen (Source)Anatomical Location / LateralityCollection Method / Volume Collection TimeReceived TimeBloodBLOOD SPECIMEN / UnknownVenipuncture / Atchwnl42/ 5:24 AM EST07/01/2025 6:01 AM EST Narrative Authorizing ProviderResult TypeResult StatusSudarshan ESPARZA LAB ORDER ONLY Final ResultPerforming OrganizationAddressCity/State/ZIP CodePhone Number [facility] PATHOLOG[facility] LABORATORY [address] [place] [phone] * (ABNORMAL) BASIC METABOLIC PANEL (07/01/2025 5:24 AM EST)ComponentValueRef RangeTest MethodAnalysis TimePerformed AtPathologist KhjrvtfhmTguaspx175(H)74 - 109 mg/dL07/01/2025 6:29 AM [facility] PATHOLOGY HGJRUYHRRSYhudvb641(L)136 - 145 mmol/L109/01/2024 6:29 AM [facility] PATHOLOGY LABORATORYPotassium4.83.5 - 5.0 mmol/L109/01/2024 6:29 AM [facility] PATHOLOGY LABORATORYCarbon Zropwhj5447 - 31 mmol/L109/01/2024 6:29 AM [facility] PATHOLOGY OGJDFEHMOVUopkvlvc16934 - 107 mmol/L 07/01/2025 6:29 AM [facility] PATHOLOGY LABORATORYBlood Urea Uhapjwqe337 - 25 mg/dL07/01/2025 6:29 AM [facility] PATHOLOGY LABORATORYCreatinine0.960.70 - 1.30 mg/dL07/01/2025 6:29 AM [facility] PATHOLOGY LABORATORYCalcium7.9(L)8.6 - 10.3 mg/dL07/01/2025 6:29 AM [facility] PATHOLOGY LABORATORYAnion Jji9046 - 20 07/01/2025 6:29 AM [facility] PATHOLOGY LABORATORYEstimated GFR (CKD-EPI)76>=60 mL/min/1.88wvd4609/01/2024 6:29 AM [facility] PATHOLOGY LABORATORYComment: 2020 CKD EPI Equation using Creatinine without Race Comment: ??Estimated glomerular filtration rate (eGFR) is calculated without a race coefficient. Values should be interpreted in the context of the patient's full clinical presentation. Reference: 1. Geoff C, Shirley M, Rossana GUNDERSON, et al.. A Unifying Approach for GFR Estimation: Recommendations of the NKF-ASN Task Force on Reassessing the Inclusion of Race in Diagnosing Kidney Disease. AmericanJournal of Kidney Diseases 2021;79(2):268-88.e1. 2. N Engl J Med 1 Vol. 385 Issue 19 Pages 4019-4194 Specimen (Source)Anatomical Location / LateralityCollection Method / Volume Collection TimeReceived TimeBloodBLOOD SPECIMEN / UnknownVenipuncture / Unknown 07/01/2025 5:24 AM EST07/01/2025 6:01 AM EST Narrative Authorizing ProviderResult TypeResult StatusSudarshan Lovett MD98 GENERAL LAB Final ResultPerforming OrganizationAddressCity/State/ZIP CodePhone Number [facility] PATH[facility] LABORATORY [address] [place] [phone] * (ABNORMAL) GLUCOSE, FINGERSTICK-IN OFFICE (06/30/2025 8:41 PM EST)Component ValueRef RangeTest MethodAnalysis TimePerformed AtPathologist Signature Glucose, ZDP677(H)74 - 109 mg/dL06/30/2025 8:48 PM ESTNURSING GLUCOSE PROGRAM Specimen (Source)Anatomical Location / LateralityCollection Method / Volume Collection TimeReceived TimeBloodBLOOD SPECIMEN / Ovgmqls5606/30/2025 8:41 PM EST06/30/2025 8:48 PM EST Narrative Authorizing ProviderResult TypeResult StatusTo Be AssignedEC BACK OFFICE LABS Final ResultPerforming OrganizationAddressty/State/ZIP CodePhone Number NURSING GLUCOSE PROGRAM [address] [place] [phone] * (ABNORMAL) GLUCOSE, FINGERSTICK-IN OFFICE (06/30/2025 4:37 PM EST)Component ValueRef RangeTest MethodAnalysis TimePerformed AtPathologist Signature Glucose, TWM399(H)74 - 109 mg/dL06/30/2025 4:43 PM ESTNURSING GLUCOSE PROGRAM Specimen (Source)Anatomical Location / LateralityCollection Method / Volume Collection TimeReceived TimeBloodBLOOD SPECIMEN / Gipuniv7506/30/2025 4:37 PM EST06/30/2025 4:43 PM EST Narrative Authorizing ProviderResult TypeResult StatusTo Be AssignedEC BACK OFFICE LABS Final ResultPerforming OrganizationAddressty/State/ZIP CodePhone Number NURSING GLUCOSE PROGRAM [address] [place] [phone] * (ABNORMAL) CBC WITH DIFFERENTIAL (06/30/2025 11:29 AM EST)ComponentValueRef RangeTest MethodAnalysis TimePerformed AtPathologist SignatureWBC7.74.5 - 11.5 K/uL06/30/2025 11:43 AM [facility] PATHOLOGY LABORATORYRBC3.20(L)4.50 - 5.90 M/uL 06/30/2025 11:43 AM [facility] PATHOLOGY LABORATORYHemoglobin8.6(L)13.9 - 16.3 g/dL06/30/2025 11:43 AM [facility] PATHOLOGY UZITZJKSWMLljzttjavq94.6(L)41.0 - 53.0 %06/30/2025 11:43 AM [facility] PATHOLOGY ESDSYVYJMJUWG1411 - 100 fL 06/30/2025 11:43 AM [facility] PATHOLOGY UOLOKGSSMRYYS42.726.0 - 34.0 pg06/30/2025 11:43 AM [facility] PATHOLOGY EZFSLLYJCWYMEO62.432.0 - 35.9 g/dL06/30/2025 11:43 AM [facility] PATHOLOGY LJJILBAIBYNwoiiyyl393(H)150 - 400 K/uL06/30/2025 11:43 AM [facility] PATHOLOGY LABORATORYRDW-CV15.8(H)11.5 - 14.5 %06/30/2025 11:43 AM [facility] PATHOLOGY LABORATORYMPV9.97.5 - 11.2 fL06/30/2025 11:43 AM [facility] PATHOLOGY GAGUTKFUULFjhowuawrco63.5(H)31.0 - 76.0 %06/30/2025 11:43 AM [facility] PATHOLOGY LABORATORYNeutrophil #5.891.50 - 8.00 K/uL06/30/2025 11:43 AM [facility] PATHOLOGY LABORATORYLymphocytes9.3(L)24.0 - 44.0 %06/30/2025 11:43 AM [facility] PATHOLOGY LABORATORYLymphocytes #0.72(L)1.00 - 4.80 K/uL06/30/2025 11:43 AM [facility] PATHOLOGY SZDTEIUCYMVmncovcof94.7(H)2.0 - 11.0 %06/30/2025 11:43 AM [facility] PATHOLOGY LABORATORYMonocyte #0.900.20 - 1.00 K/uL06/30/2025 11:43 AM [facility] PATHOLOGY LABORATORYEosinophil1.50.1 - 4.0 %06/30/2025 11:43 AM [facility] PATHOLOGY LABORATORYEosinophil #0.120.00 - 0.70 K/uL06/30/2025 11:43 AM [facility] PATHOLOGY LABORATORYBasophils1.0<=1.9 %06/30/2025 11:43 AM [facility] PATHOLOGY LABORATORYBasophil #0.070.00 - 0.20 K/uL06/30/2025 11:43 AM [facility] PATHOLOGY LABORATORYSpecimen (Source)Anatomical Location / LateralityCollection Method / VolumeCollection TimeReceived TimeBloodBLOOD SPECIMEN / UnknownVenipuncture / Ncbntni3406/30/2025 11:29 AM EST06/30/2025 11:37 AM EST Narrative Authorizing ProviderResult TypeResult StatusGhdonnie Lovett MDJOSE LAB ORDER ONLY Final ResultPerforming OrganizationAddressCity/State/ZIP CodePhone Number [facility] PATHOLOG[facility] LABORATORY [address] [place] [phone] * (ABNORMAL) BASIC METABOLIC PANEL (06/30/2025 11:29 AM EST)ComponentValueRef RangeTest MethodAnalysis TimePerformed AtPathologist ZkoaovhndEovjjga868(H)74 - 109 mg/dL06/30/2025 12:14 PM [facility] PATHOLOGY CQLVFNDIEQUgtzuh180(L)136 - 145 mmol/L108/31/2024 12:14 PM [facility] PATHOLOGY LABORATORYPotassium4.33.5 - 5.0 mmol/L108/31/2024 12:14 PM [facility] PATHOLOGY LABORATORYCarbon Xnlnvnp8197 - 31 mmol/L108/31/2024 12:14 PM [facility] PATHOLOGY XIUJUONNIDVujpsrnf22249 - 107 mmol/L108/31/2024 12:14 PM [facility] PATHOLOGY LABORATORYBlood Urea Kzoltsec917 - 25 mg/dL06/30/2025 12:14 PM [facility] PATHOLOGY LABORATORYCreatinine0.910.70 - 1.30 mg/dL06/30/2025 12:14 PM [facility] PATHOLOGY LABORATORYCalcium8.0(L)8.6 - 10.3 mg/dL06/30/2025 12:14 PM [facility] PATHOLOGY LABORATORYAnion Ego4145 - 20 06/30/2025 12:14 PM [facility] PATHOLOGY LABORATORYEstimated GFR (CKD-EPI)81>=60 mL/min/1.98owb0008/31/2024 12:14 PM [facility] PATHOLOGY LABORATORYComment: 2020 CKD EPI Equation using Creatinine without Race Comment: ??Estimated glomerular filtration rate (eGFR) is calculated without a race coefficient. Values should be interpreted in the context of the patient's full clinical presentation. Reference: 1. Geoff C, Shirley M, Rossana GUNDERSON, et al.. A Unifying Approach for GFR Estimation: Recommendations of the NKF-ASN Task Force on Reassessing the Inclusion of Race in Diagnosing Kidney Disease. AmericanJournal of Kidney Diseases 2021;79(2):268-88.e1. 2. N Engl J Med 1 Vol. 385 Issue 19 Pages 6752-6923 Specimen (Source)Anatomical Location / LateralityCollection Method / Volume Collection TimeReceived TimeBloodBLOOD SPECIMEN / UnknownVenipuncture / Unknown 06/30/2025 11:29 AM EST06/30/2025 11:37 AM EST Narrative Authorizing ProviderResult TypeResult StatusSudarshan Lovett MD98 GENERAL LAB Final ResultPerforming OrganizationAddressCity/State/ZIP CodePhone Number [facility] PATHOLOGY LABORATORY [address] [place] [phone] * (ABNORMAL) GLUCOSE, FINGERSTICK-IN OFFICE (06/30/2025 11:18 AM EST)Component ValueRef RangeTest MethodAnalysis TimePerformed AtPathologist Signature Glucose, KKP387(H)74 - 109 mg/dL06/30/2025 11:24 AM ESTNURSING GLUCOSE PROGRAM Specimen (Source)Anatomical Location / LateralityCollection Method / Volume Collection TimeReceived TimeBloodBLOOD SPECIMEN / Tmvzgut7206/30/2025 11:18 AM EST06/30/2025 11:24 AM EST Narrative Authorizing ProviderResult TypeResult StatusTo Be AssignedEC BACK OFFICE LABS Final ResultPerforming OrganizationAddressCity/State/ZIP CodePhone Number NURSING GLUCOSE PROGRAM [address] [place] [address] * (ABNORMAL) GLUCOSE, FINGERSTICK-IN OFFICE (06/30/2025 8:03 AM EST)Component ValueRef RangeTest MethodAnalysis TimePerformed AtPathologist Signature Glucose, RKM382(H)74 - 109 mg/dL06/30/2025 8:10 AM ESTNURSING GLUCOSE PROGRAM Specimen (Source)Anatomical Location / LateralityCollection Method / Volume Collection TimeReceived TimeBloodBLOOD SPECIMEN / Umwtnan1406/30/2025 8:03 AM EST06/30/2025 8:10 AM EST Narrative Authorizing ProviderResult TypeResult StatusTo Be AssignedEC BACK OFFICE LABS Final ResultPerforming OrganizationAddressty/State/ZIP CodePhone Number NURSING GLUCOSE PROGRAM [address] [place] [phone] * (ABNORMAL) GLUCOSE, FINGERSTICK-IN OFFICE (06/30/2025 3:23 AM EST)Component ValueRef RangeTest MethodAnalysis TimePerformed AtPathologist Signature Glucose, XPL044(H)74 - 109 mg/dL06/30/2025 3:30 AM ESTNURSING GLUCOSE PROGRAM Specimen (Source)Anatomical Location / LateralityCollection Method / Volume Collection TimeReceived TimeBloodBLOOD SPECIMEN / Ctzsmrb6806/30/2025 3:23 AM EST06/30/2025 3:30 AM EST Narrative Authorizing ProviderResult TypeResult StatusTo Be AssignedEC BACK OFFICE LABS Final ResultPerforming OrganizationAddMoses Taylor Hospitalty/State/ZIP CodePhone Number NURSING GLUCOSE PROGRAM [address] [place] [phone] * (ABNORMAL) GLUCOSE, FINGERSTICK-IN OFFICE (06/29/2025 8:27 PM EST)Component ValueRef RangeTest MethodAnalysis TimePerformed AtPathologist Signature Glucose, JKC288(H)74 - 109 mg/dL06/29/2025 8:33 PM ESTNURSING GLUCOSE PROGRAM Specimen (Source)Anatomical Location / LateralityCollection Method / Volume Collection TimeReceived TimeBloodBLOOD SPECIMEN / Aekvdzx7406/29/2025 8:27 PM EST06/29/2025 8:33 PM EST Narrative Authorizing ProviderResult TypeResult StatusTo Be AssignedEC BACK OFFICE LABS Final ResultPerforming OrganizationAddMoses Taylor Hospitalty/State/ZIP CodePhone Number NURSING GLUCOSE PROGRAM [address] [place] [phone] * GLUCOSE, FINGERSTICK-IN OFFICE (06/29/2025 7:04 PM EST)ComponentValueRef Range Test MethodAnalysis TimePerformed AtPathologist SignatureGlucose, MGD2447 - 109 mg/dL06/29/2025 7:10 PM ESTNURSING GLUCOSE PROGRAMSpecimen (Source) Anatomical Location / LateralityCollection Method / VolumeCollection Time Received TimeBloodBLOOD SPECIMEN / Ucvosbu7006/29/2025 7:04 PM EST06/29/2025 7:10 PM EST Narrative Authorizing ProviderResult TypeResult StatusTo Be AssignedEC BACK OFFICE LABS Final ResultPerforming OrganizationAddressty/State/ZIP CodePhone Number NURSING GLUCOSE PROGRAM [address] [place] [phone] * (ABNORMAL) GLUCOSE, FINGERSTICK-IN OFFICE (06/29/2025 6:38 PM EST)Component ValueRef RangeTest MethodAnalysis TimePerformed AtPathologist Signature Glucose, POC56(L)74 - 109 mg/dL06/29/2025 6:44 PM ESTNURSING GLUCOSE PROGRAM Specimen (Source)Anatomical Location / LateralityCollection Method / Volume Collection TimeReceived TimeBloodBLOOD SPECIMEN / Vitbxsq6406/29/2025 6:38 PM EST06/29/2025 6:44 PM EST Narrative Authorizing ProviderResult TypeResult StatusTo Be AssignedEC BACK OFFICE LABS Final ResultPerforming OrganizationAddMoses Taylor Hospitalty/State/ZIP CodePhone Number NURSING GLUCOSE PROGRAM [address] [place] [phone] * GLUCOSE, FINGERSTICK-IN OFFICE (06/29/2025 5:34 PM EST)ComponentValueRef Range Test MethodAnalysis TimePerformed AtPathologist SignatureGlucose, BKT0197 - 109 mg/dL06/29/2025 5:40 PM ESTNURSING GLUCOSE PROGRAMSpecimen (Source) Anatomical Location / LateralityCollection Method / VolumeCollection Time Received TimeBloodBLOOD SPECIMEN / Epafqhm6206/29/2025 5:34 PM EST06/29/2025 5:40 PM EST Narrative Authorizing ProviderResult TypeResult StatusTo Be AssignedEC BACK OFFICE LABS Final ResultPerforming OrganizationAddMoses Taylor Hospitalty/State/ZIP CodePhone Number NURSING GLUCOSE PROGRAM [address] [place] [phone] * GLUCOSE, FINGERSTICK-IN OFFICE (06/29/2025 4:18 PM EST)ComponentValueRef Range Test MethodAnalysis TimePerformed AtPathologist SignatureGlucose, RWF5553 - 109 mg/dL06/29/2025 4:24 PM ESTNURSING GLUCOSE PROGRAMSpecimen (Source) Anatomical Location / LateralityCollection Method / VolumeCollection Time Received TimeBloodBLOOD SPECIMEN / Twalatj9806/29/2025 4:18 PM EST06/29/2025 4:24 PM EST Narrative Authorizing ProviderResult TypeResult StatusTo Be AssignedEC BACK OFFICE LABS Final ResultPerforming OrganizationAddMoses Taylor Hospitalty/State/ZIP CodePhone Number NURSING GLUCOSE PROGRAM [address] [place] [phone] * (ABNORMAL) GLUCOSE, FINGERSTICK-IN OFFICE (06/29/2025 3:55 PM EST)Component ValueRef RangeTest MethodAnalysis TimePerformed AtPathologist Signature Glucose, POC62(L)74 - 109 mg/dL06/29/2025 4:02 PM ESTNURSING GLUCOSE PROGRAM Comment:Notified RN YANIV OGLESBY
Specimen (Source)Anatomical Location / LateralityCollection Method / VolumeCollection TimeReceived TimeBloodBLOOD SPECIMEN / Frrkyyd5106/29/2025 3:55 PM EST06/29/2025 4:02 PM EST Narrative Authorizing ProviderResult TypeResult StatusTo Be AssignedEC BACK OFFICE LABS Final ResultPerforming OrganizationAddressty/State/ZIP CodePhone Number NURSING GLUCOSE PROGRAM [address] [place] [phone] * GLUCOSE, FINGERSTICK-IN OFFICE (06/29/2025 2:01 PM EST)ComponentValueRef Range Test MethodAnalysis TimePerformed AtPathologist SignatureGlucose, MNN1495 - 109 mg/dL06/29/2025 2:07 PM ESTNURSING GLUCOSE PROGRAMSpecimen (Source) Anatomical Location / LateralityCollection Method / VolumeCollection Time Received TimeBloodBLOOD SPECIMEN / Ebdgdrr4906/29/2025 2:01 PM EST06/29/2025 2:07 PM EST Narrative Authorizing ProviderResult TypeResult StatusTo Be AssignedEC BACK OFFICE LABS Final ResultPerforming OrganizationAddMoses Taylor Hospitalty/State/ZIP CodePhone Number NURSING GLUCOSE PROGRAM [address] [place] [phone] * GLUCOSE, FINGERSTICK-IN OFFICE (06/29/2025 11:51 AM EST)ComponentValueRef RangeTest MethodAnalysis TimePerformed AtPathologist SignatureGlucose, TCQ2273 - 109 mg/dL06/29/2025 11:59 AM ESTNURSING GLUCOSE PROGRAMSpecimen (Source) Anatomical Location / LateralityCollection Method / VolumeCollection Time Received TimeBloodBLOOD SPECIMEN / Rpdphyl9006/29/2025 11:51 AM EST06/29/2025 11:59 AM EST Narrative Authorizing ProviderResult TypeResult StatusTo Be AssignedEC BACK OFFICE LABS Final ResultPerforming OrganizationAddressCity/State/ZIP CodePhone Number NURSING GLUCOSE PROGRAM [address] [place] [address] * (ABNORMAL) PROTHROMBIN TIME AND INR (06/29/2025 11:46 AM EST)ComponentValueRef RangeTest MethodAnalysis TimePerformed AtPathologist GfnexyddxEthkgjs71.7(H) 9.7 - 12.9 sec06/29/2025 12:05 PM [facility] LABORATORYINR2.65(H)0.90 - 1.10108/30/2024 12:05 PM ESTPRES[facility] PATH[facility] LABORATORYSpecimen (Source)Anatomical Location / LateralityCollection Method / VolumeCollection TimeReceived Time BloodBLOOD SPECIMEN / UnknownVenipuncture / Swzxwdg1006/29/2025 11:46 AM EST 06/29/2025 11:50 AM EST Narrative Authorizing ProviderResult TypeResult StatusDel[place] [id number] GENERAL LAB Final ResultPerforming OrganizationAddressCity/State/ZIP CodePhone Number [facility] PATHOLOGY LABORATORY [address] [place] [phone] * BASIC METABOLIC PANEL (06/29/2025 11:46 AM EST)ComponentValueRef RangeTest MethodAnalysis TimePerformed AtPathologist XkszxcgfjFcxijwl8665 - 109 mg/dL 06/29/2025 12:25 PM ESTPRES[facility] LOWVARJITCQccqua887246 - 145 mmol/L 06/29/2025 12:25 PM [facility] PATHOLOGY LABORATORYPotassium4.43.5 - 5.0 mmol/L 06/29/2025 12:25 PM [facility] PATHOLOGY LABORATORYCarbon Luiwjza4515 - 31 mmol/L 06/29/2025 12:25 PM [facility] PATHOLOGY TDQNOYVVTHJkdgtitr87527 - 107 mmol/L 06/29/2025 12:25 PM [facility]PRES[facility] LABORATORYBlood Urea Cfmyprkh318 - 25 mg/dL06/29/2025 12:25 PM [facility] PATHOLOGY LABORATORYCreatinine0.880.70 - 1.30 mg/dL06/29/2025 12:25 PM [facility] [facility] LABORATORYCalcium8.68.6 - 10.3 mg/dL 06/29/2025 12:25 PM [facility] PATHOLOGY LABORATORYAnion Gtg7576 - 12:25 PM [facility] PATHOLOGY LABORATORYEstimated GFR (CKD-EPI)83>=60 mL/min/1.67asi8408/30/2024 12:25 PM [facility] PATHOLOGY LABORATORYComment: 2020 CKD EPI Equation using Creatinine without Race Comment: ??Estimated glomerular filtration rate (eGFR) is calculated without a race coefficient. Values should be interpreted in the context of the patient's full clinical presentation. Reference: 1. Geoff C, Shirley M, Rossana GUNDERSON, et al.. A Unifying Approach for GFR Estimation: Recommendations of the NKF-ASN Task Force on Reassessing the Inclusion of Race in Diagnosing Kidney Disease. AmericanJournal of Kidney Diseases 2021;79(2):268-88.e1. 2. N Engl J Med 1 Vol. 385 Issue 19 Pages 5800-6218 Specimen (Source)Anatomical Location / LateralityCollection Method / Volume Collection TimeReceived TimeBloodBLOOD SPECIMEN / UnknownVenipuncture / Unknown 06/29/2025 11:46 AM EST06/29/2025 11:55 AM EST Narrative Authorizing ProviderResult TypeResult StatusDelrj [facility] Final ResultPerforming OrganizationAddressCity/State/ZIP CodePhone Number [facility] PATH[facility] LABORATORY [address] [place] [address] * FFP (06/29/2025 11:22 AM EST)ComponentValueRef RangeTest MethodAnalysis Time Performed AtPathologist SignatureBB Order ItemProduct status info to [facility] PATHOLOGY LABORATORYSpecimen (Source)Anatomical Location / Laterality Collection Method / VolumeCollection TimeReceived TimeBLOOD SPECIMEN / Unknown Narrative Authorizing ProviderResult TypeResult StatusMaribel ESPARZA BLOOD BANKFinal ResultPerforming OrganizationAddressCity/State/ZIP CodePhone Number [facility] PATH[facility] LABOR[facility] [address] [place] [phone] * PLASMA STATUS (06/29/2025 11:22 AM EST)ComponentValueRef RangeTest Method Analysis TimePerformed AtPathologist SignatureBlood Product DescriptionFFLAKEHEALTH TR[facility] PATHOLOGY LABORATORYBlood Product [id number] PATHOLOGY LABORATORYStatus Not usedPRESBYTERIAN [facility] PATHOLOGY LABORATORYBlood Product Unit [id number] PATHOLOGY LABORATORYBlood Product Unit [id number] PATHOLOGY LABORATORY Comment:A PosSpecimen (Source)Anatomical Location / LateralityCollection Method / VolumeCollection TimeReceived Time06/29/2025 11:22 AM EST Narrative Authorizing ProviderResult TypeResult StatusDelTa[facility] BLOOD BANK Edited Result - FinalPerforming OrganizationAddressCity/State/ZIP CodePhone Number [facility] PATH[facility]ORY [address] [place] [phone] * PLASMA STATUS (06/29/2025 11:22 AM EST)ComponentValueRef RangeTest Method Analysis TimePerformed AtPathologist SignatureBlood Product DescriptionFFLAKEHEALTH TRIP[facility] PATHOLOGY LABORATORYBlood Product [id number] PATHOLOGY LABORATORYStatus Not usedPRESBYTERIAN [facility] PATH[facility] LABORATORYBlood Product Unit [id number] PATHOLOGY LABORATORYBlood Product Unit [id number] PATHOLOGY LABORATORY Comment:A PosSpecimen (Source)Anatomical Location / LateralityCollection Method / VolumeCollection TimeReceived Time06/29/2025 11:22 AM EST Narrative Authorizing ProviderResult TypeResult StatusDelTaunton [facility] Hospital BLOOD BANK Edited Result - FinalPerforming OrganizationAddressCity/State/ZIP CodePhone Number [facility] PATH[facility] LABOR[facility]ORY [address] [place] [phone] * (ABNORMAL) GLUCOSE, FINGERSTICK-IN OFFICE (06/29/2025 11:21 AM EST)Component ValueRef RangeTest MethodAnalysis TimePerformed AtPathologist Signature Glucose, POC53(LL)74 - 109 mg/dL06/29/2025 11:28 AM ESTNURSING GLUCOSE PROGRAM Comment:Notified RN YANIV OGLESBY
Specimen (Source)Anatomical Location / LateralityCollection Method / VolumeCollection TimeReceived TimeBloodBLOOD SPECIMEN / Silzvws6006/29/2025 11:21 AM EST06/29/2025 11:28 AM EST Narrative Authorizing ProviderResult TypeResult StatusTo Be AssignedEC BACK OFFICE LABS Final ResultPerforming OrganizationAddMoses Taylor Hospitalty/State/ZIP CodePhone Number NURSING GLUCOSE PROGRAM [address] [place] [phone] * GLUCOSE, FINGERSTICK-IN OFFICE (06/29/2025 7:12 AM EST)ComponentValueRef Range Test MethodAnalysis TimePerformed AtPathologist SignatureGlucose, MQZ26024 - 109 mg/dL06/29/2025 7:19 AM ESTNURSING GLUCOSE PROGRAMSpecimen (Source) Anatomical Location / LateralityCollection Method / VolumeCollection Time Received TimeBloodBLOOD SPECIMEN / Xzwzyvg8006/29/2025 7:12 AM EST06/29/2025 7:19 AM EST Narrative Authorizing ProviderResult TypeResult StatusTo Be AssignedEC BACK OFFICE LABS Final ResultPerforming OrganizationAddressty/State/ZIP CodePhone Number NURSING GLUCOSE PROGRAM [address] [place] [phone] * GLUCOSE, FINGERSTICK-IN OFFICE (06/29/2025 5:49 AM EST)ComponentValueRef Range Test MethodAnalysis TimePerformed AtPathologist SignatureGlucose, WDM86475 - 109 mg/dL06/29/2025 5:55 AM ESTNURSING GLUCOSE PROGRAMSpecimen (Source) Anatomical Location / LateralityCollection Method / VolumeCollection Time Received TimeBloodBLOOD SPECIMEN / Timxwuq3606/29/2025 5:49 AM EST06/29/2025 5:55 AM EST Narrative Authorizing ProviderResult TypeResult StatusTo Be AssignedEC BACK OFFICE LABS Final ResultPerforming OrganizationAddressty/State/ZIP CodePhone Number NURSING GLUCOSE PROGRAM [address] [place] [phone] * GLUCOSE, FINGERSTICK-IN OFFICE (06/29/2025 5:35 AM EST)ComponentValueRef Range Test MethodAnalysis TimePerformed AtPathologist SignatureGlucose, JVP1034 - 109 mg/dL06/29/2025 5:41 AM ESTNURSING GLUCOSE PROGRAMSpecimen (Source) Anatomical Location / LateralityCollection Method / VolumeCollection Time Received TimeBloodBLOOD SPECIMEN / Hmtmqcw4206/29/2025 5:35 AM EST06/29/2025 5:41 AM EST Narrative Authorizing ProviderResult TypeResult StatusTo Be AssignedEC BACK OFFICE LABS Final ResultPerforming OrganizationAddressCity/State/ZIP CodePhone Number NURSING GLUCOSE PROGRAM [address] [place] [phone] * (ABNORMAL) GLUCOSE, FINGERSTICK-IN OFFICE (06/29/2025 5:21 AM EST)Component ValueRef RangeTest MethodAnalysis TimePerformed AtPathologist Signature Glucose, POC53(LL)74 - 109 mg/dL06/29/2025 5:27 AM ESTNURSING GLUCOSE PROGRAM Comment:Notified RN YANIV OGLESBY
Specimen (Source)Anatomical Location / LateralityCollection Method / VolumeCollection TimeReceived TimeBloodBLOOD SPECIMEN / Lhnyicz9606/29/2025 5:21 AM EST06/29/2025 5:27 AM EST Narrative Authorizing ProviderResult TypeResult StatusTo Be AssignedEC BACK OFFICE LABS Final ResultPerforming OrganizationAddressCity/State/ZIP CodePhone Number NURSING GLUCOSE PROGRAM [address] [place] [phone] * (ABNORMAL) PHOSPHORUS (06/29/2025 4:34 AM EST)ComponentValueRef RangeTest MethodAnalysis TimePerformed AtPathologist SignaturePhosphorus, Serum2.4(L)2.5 - 5.0 mg/dL06/29/2025 6:34 AM ESTS PATHOLOGY LABORATORYSpecimen (Source) Anatomical Location / LateralityCollection Method / VolumeCollection Time Received TimeBloodBLOOD SPECIMEN / UnknownVenipuncture / Hzcqxcz7406/29/2025 4:34 AM EST06/29/2025 4:47 AM EST Narrative Authorizing ProviderResult TypeResult StatusCourtney Veronica MD98 GENERAL LABFinal ResultPerforming OrganizationAddressCity/State/ZIP CodePhone Number [facility] PATHOLOG[facility] LABORATORY [address] [place] [phone] * (ABNORMAL) HEPATIC FUNCTION PANEL (06/29/2025 4:34 AM EST)ComponentValueRef RangeTest MethodAnalysis TimePerformed AtPathologist SignatureAlbumin2.2(L)3.5 - 5.7 g/dL06/29/2025 6:34 AM ESTS PATHOLOGY LABORATORYBilirubin, Direct0.05 0.03 - 0.18 mg/dL06/29/2025 6:34 AM ESTS PATHOLOGY LABORATORYBilirubin, Total0.2(L)0.3 - 1.0 mg/dL06/29/2025 6:34 AM [facility] PATHOLOG[facility] LABORATORY Alkaline Golmeinrrbe6013 - 104 IU/L108/30/2024 6:34 AM [facility] PATHOLOGY LABORATORYALT (SGPT)<3(L)7 - 52 IU/L108/30/2024 6:34 AM [facility] PATHOLOGY LABORATORYAST (SGOT)1313 - 39 IU/L108/30/2024 6:34 AM [facility] PATHOLOGY LABORATORYProtein, Total4.4(L)6.1 - 7.9 g/dL06/29/2025 6:34 AM [facility] PATHOLOGY LABORATORYSpecimen (Source)Anatomical Location / Laterality Collection Method / VolumeCollection TimeReceived TimeBloodBLOOD SPECIMEN / UnknownVenipuncture / Fmdrpob7806/29/2025 4:34 AM EST06/29/2025 4:47 AM EST Narrative Authorizing ProviderResult TypeResult StatusJeramana Veronica MD98 GENERAL LABFinal ResultPerforming OrganizationAddressCity/State/ZIP CodePhone Number [facility] PATHOLOG[facility] LABORATORY [address] [place] [phone] * (ABNORMAL) CBC WITH DIFFERENTIAL (06/29/2025 4:34 AM EST)ComponentValueRef RangeTest MethodAnalysis TimePerformed AtPathologist SignatureWBC9.54.5 - 11.5 K/uL06/29/2025 4:55 AM [facility] PATHOLOGY LABORATORYRBC3.67(L)4.50 - 5.90 M/uL 06/29/2025 4:55 AM [facility] PATHOLOGY LABORATORYHemoglobin9.8(L)13.9 - 16.3 g/dL 06/29/2025 4:55 AM [facility] PATHOLOGY HMAQBVCDWZCoayewroih83.6(L)41.0 - 53.0 % 06/29/2025 4:55 AM [facility] PATHOLOGY DJKAQANELNHUY5822 - 100 fL06/29/2025 4:55 AM [facility] PATHOLOGY THFBRCDNRVIOR12.726.0 - 34.0 pg06/29/2025 4:55 AM [facility] PATHOLOGY AMDQHHWNNQUFUG72.232.0 - 35.9 g/dL06/29/2025 4:55 AM [facility] PATHOLOGY XGESVXAXKOCitemkbr299(H)150 - 400 K/uL06/29/2025 4:55 AM [facility] PATHOLOGY LABORATORYRDW-CV15.9(H)11.5 - 14.5 %06/29/2025 4:55 AM [facility] PATHOLOGY LABORATORYMPV9.57.5 - 11.2 fL06/29/2025 4:55 AM [facility] PATHOLOGY MWWPCJSDPQDocecmgwvcb32.331.0 - 76.0 %06/29/2025 4:55 AM [facility] PATHOLOGY LABORATORYNeutrophil #7.051.50 - 8.00 K/uL06/29/2025 4:55 AM [facility] PATHOLOGY CWFVEOTQPTFrxitxeanfp39.5(L)24.0 - 44.0 %06/29/2025 4:55 AM [facility] PATHOLOGY LABORATORYLymphocytes #1.281.00 - 4.80 K/uL06/29/2025 4:55 AM [facility] PATHOLOGY XNEYUCLSNEYjlfkevun02.32.0 - 11.0 %06/29/2025 4:55 AM [facility] PATHOLOGY LABORATORYMonocyte #0.980.20 - 1.00 K/uL06/29/2025 4:55 AM [facility] PATHOLOGY LABORATORYEosinophil1.20.1 - 4.0 %06/29/2025 4:55 AM [facility] PATHOLOGY LABORATORYEosinophil #0.110.00 - 0.70 K/uL06/29/2025 4:55 AM [facility] PATHOLOGY LABORATORYBasophils0.8<=1.9 %06/29/2025 4:55 AM [facility] PATH[facility] LABORATORY Basophil #0.070.00 - 0.20 K/06/29/2025 4:55 AM [facility] PATH[facility] LABORATORY Specimen (Source)Anatomical Location / LateralityCollection Method / Volume Collection TimeReceived TimeBloodBLOOD SPECIMEN / UnknownVenipuncture / Uvkrzmg0706/29/2025 4:34 AM EST06/29/2025 4:47 AM EST Narrative Authorizing ProviderResult TypeResult StatusGhdonnie ESPARZA LAB ORDER ONLY Final ResultPerforming OrganizationAddressCity/State/ZIP CodePhone Number [facility] PATH[facility] LABORATORY [address] [place] [phone] * (ABNORMAL) BASIC METABOLIC PANEL (06/29/2025 4:34 AM EST)ComponentValueRef RangeTest MethodAnalysis TimePerformed AtPathologist GomqmckpoHnkarwu19(LL)74 - 109 mg/dL06/29/2025 5:21 AM [facility] PATHOLOGY EHWWVGRJIBDiqskx415328 - 145 mmol/L108/30/2024 5:21 AM [facility] PATHOLOGY LABORATORYPotassium3.1(L)3.5 - 5.0 mmol/L108/30/2024 5:21 AM [facility] PATHOLOGY LABORATORYCarbon Pgalccj0766 - 31 mmol/L108/30/2024 5:21 AM [facility] PATHOLOGY HDSVGOGDIQLtvpmpji023(H)98 - 107 mmol/L108/30/2024 5:21 AM [facility] PATHOLOGY LABORATORYBlood Urea Xckqdhpi459 - 25 mg/dL06/29/2025 5:21 AM [facility] PATHOLOGY LABORATORYCreatinine0.58(L)0.70 - 1.30 mg/dL06/29/2025 5:21 AM [facility] PATHOLOGY LABORATORYCalcium6.0(L)8.6 - 10.3 mg/dL06/29/2025 5:21 AM [facility] PATHOLOGY LABORATORYAnion Gap7(L)10 - 20 06/29/2025 5:21 AM [facility] PATHOLOGY LABORATORYEstimated GFR (CKD-EPI)94>=60 mL/min/1.86ykm7408/30/2024 5:21 AM [facility] PATHOLOGY LABORATORYComment: 2020 CKD EPI Equation using Creatinine without Race Comment: ??Estimated glomerular filtration rate (eGFR) is calculated without a race coefficient. Values should be interpreted in the context of the patient's full clinical presentation. Reference: 1. Geoff C, Shirley M, Rossana GUNDERSON, et al.. A Unifying Approach for GFR Estimation: Recommendations of the NKF-ASN Task Force on Reassessing the Inclusion of Race in Diagnosing Kidney Disease. AmericanJournal of Kidney Diseases 202;79(2):268-88.e1. 2. N Engl J Med 1 Vol. 385 Issue 19 Pages 3137-8760 Specimen (Source)Anatomical Location / LateralityCollection Method / Volume Collection TimeReceived TimeBloodBLOOD SPECIMEN / UnknownVenipuncture / Unknown 06/29/2025 4:34 AM EST06/29/2025 4:47 AM EST Narrative Authorizing ProviderResult TypeResult StatusSudarshan [facility] Final ResultPerforming OrganizationAddressCity/State/ZIP CodePhone Number [facility] PATH[facility] LABORATORY [address] [place] [phone] * PARTIAL THROMBOPLASTIN TIME (06/29/2025 4:34 AM EST)ComponentValueRef Range Test MethodAnalysis TimePerformed AtPathologist WdfemoncrhJNV1878 - 37 sec 06/29/2025 4:57 AM ESTS PATHOLOGY LABORATORYSpecimen (Source)Anatomical Location / LateralityCollection Method / VolumeCollection TimeReceived Time BloodBLOOD SPECIMEN / UnknownVenipuncture / Jdtexke0706/29/2025 4:34 AM EST 06/29/2025 4:44 AM EST Narrative Authorizing ProviderResult TypeResult StatusMaribel [facility] Final ResultPerforming OrganizationAddressCity/State/ZIP CodePhone Number [facility] PATH[facility] LABORATORY [address] [place] [address] * (ABNORMAL) PROTHROMBIN TIME AND INR (06/29/2025 4:34 AM EST)ComponentValueRef RangeTest MethodAnalysis TimePerformed AtPathologist ThsqyqvodQplthhf08.4(H) 9.7 - 12.9 sec06/29/2025 4:57 AM [facility] PATHOLOGY LABORATORYINR2.71(H)0.90 - 1.10108/30/2024 4:57 AM [facility] PATHOLOGY LABORATORYSpecimen (Source)Anatomical Location / LateralityCollection Method / VolumeCollection TimeReceived Time BloodBLOOD SPECIMEN / UnknownVenipuncture / Jekhcpo3106/29/2025 4:34 AM EST 06/29/2025 4:44 AM EST Narrative Authorizing ProviderResult TypeResult StatusMaribel [facility] Final ResultPerforming OrganizationAddressty/State/ZIP CodePhone Number [facility] PATHOLOG[facility] LABORATORY [address] [place] [address] * TYPE AND SCREEN (06/29/2025 4:34 AM EST)ComponentValueRef RangeTest Method Analysis TimePerformed AtPathologist SignatureABO Rh TypeA Xilescrs57/19/2025 5:25 AM ESTS PATHOLOGY LABORATORYAb Screen ZrkrthZwuzillk90/19/2025 5:25 AM [facility] PATHOLOGY LABORATORYSpecimen Expiration Cfrg1252451747952021/19/2025 5:25 AM [facility] PATHOLOGY LABORATORYABO Rh/Blanca/TXRX HistoryA Zqsellxt76/19/2025 5:25 AM [facility] PATHOLOGY LABORATORYSpecimen (Source)Anatomical Location / LateralityCollection Method / VolumeCollection TimeReceived TimeBloodBLOOD SPECIMEN / UnknownVenipuncture / Pdvjjuz0406/29/2025 4:34 AM EST06/29/2025 4:49 AM EST Narrative Authorizing ProviderResult TypeResult StatusDelight [facility] BLOOD BANKFinal ResultPerforming OrganizationAddressCity/State/ZIP CodePhone Number [facility] PATHOLOGY LABORATORY [address] [place] [phone] * (ABNORMAL) GLUCOSE, FINGERSTICK-IN OFFICE (06/28/2025 9:36 PM EST)Component ValueRef RangeTest MethodAnalysis TimePerformed AtPathologist Signature Glucose, EDH081(H)74 - 109 mg/dL06/28/2025 9:52 PM ESTNURSING GLUCOSE PROGRAM Specimen (Source)Anatomical Location / LateralityCollection Method / Volume Collection TimeReceived TimeBloodBLOOD SPECIMEN / Qxrmpsj4006/28/2025 9:36 PM EST06/28/2025 9:52 PM EST Narrative Authorizing ProviderResult TypeResult StatusTo Be AssignedEC BACK OFFICE LABS Final ResultPerforming OrganizationAddressCity/State/ZIP CodePhone Number NURSING GLUCOSE PROGRAM [address] [place] [address] * XR T-SPINE 3 VIEWS (06/28/2025 7:13 PM EST)Anatomical RegionLateralityModality XR T-Spine, T-spineN/AComputed RadiographySpecimen (Source)Anatomical Location / LateralityCollection Method / VolumeCollection TimeReceived Time06/28/2025 7:51 PM EST Impressions 06/28/2025 7:52 PM EST * Stable mild compression deformity involving the superior endplate of T10 similar to the previous study. * ??Stable degenerative changes. * ??Stable wedge deformity of T5 * ??Small bilateral pleural effusions. * ??Partially imaged pacemaker. MACRO: None Narrative 06/28/2025 7:52 PM EST EXAMINATION: XR T-SPINE 3 VIEWSPRO 06/28/2025 07:13 PM CLINICAL HISTORY: need to be done standing for T10 fx, only need AP and LAT ASSOCIATED DIAGNOSIS: ORDERING PROVIDER: JOSEPH TUCKER NOTE: COMPARISON: MR T-SPINE W/+W/O 06/27/2025 3:00 PM Procedure Note Jose Roberto Monte MD - 06/28/2025 EXAMINATION: XR T-SPINE 3 VIEWSPRO 06/28/2025 07:13 PM CLINICAL HISTORY: need to be done standing for T10 fx, only need AP andLAT ASSOCIATED DIAGNOSIS: ORDERING PROVIDER: JOSEPH TUCKER NOTE: COMPARISON: MR T-SPINE W/+W/O 06/27/2025 3:00 PM IMPRESSION: * Stable mild compression deformity involving the superior endplate ofT10 similar to the previous study. * Stable degenerative changes. * Stable wedge deformity of T5 * Small bilateral pleural effusions. * Partially imaged pacemaker. MACRO: None Authorizing ProviderResult TypeResult [facility] CenterJoseph Weston PA-CEC DIAGNOSTIC X-RAYFinal Result * XR L-SPINE AP+LATERAL 2-3 VIEWS (06/28/2025 7:13 PM EST)Anatomical Region LateralityModalityXR L- Spine, L-spineN/AComputed RadiographySpecimen (Source) Anatomical Location / LateralityCollection Method / VolumeCollection Time Received Time06/28/2025 7:49 PM EST Impressions 06/28/2025 7:51 PM EST * Multilevel degenerative disc, endplate and facet changes are again noted similar to the previous MR examination without an acute osseous process. * ??Vascular calcifications. * ??Postoperative changes noted in the peritoneal cavity. * ??Partially visualized ORIF changes of the right femoral head. * ??Generalized osteopenia. MACRO: None Narrative 06/28/2025 7:51 PM EST EXAMINATION: XR L-SPINE AP+LATERAL 2-3 VIEWSPRO 06/28/2025 07:13 PM CLINICAL HISTORY: T10 fx, standing ASSOCIATED DIAGNOSIS: ORDERING PROVIDER: JOSEPH TUCKER NOTE: COMPARISON: MR L-SPINE W/+W/O 06/27/2025 3:01 PM Procedure Note Jose Roberot Monte MD - 06/28/2025 EXAMINATION: XR L-SPINE AP+LATERAL 2-3 VIEWSPRO 06/28/2025 07:13 PM CLINICAL HISTORY: T10 fx, standing ASSOCIATED DIAGNOSIS: ORDERING PROVIDER: JOSEPH WESTON TECHNOLOGISTS NOTE: COMPARISON: MR L-SPINE W/+W/O 06/27/2025 3:01 PM IMPRESSION: * Multilevel degenerative disc, endplate and facet changes are againnoted similar to the previous MR examination without an acute osseousprocess. * Vascular calcifications. * Postoperative changes noted in the peritoneal cavity. * Partially visualized ORIF changes of the right femoral head. * Generalized osteopenia. MACRO: None Authorizing ProviderResult TypeResult StatusJoseph Weston PA-CEC DIAGNOSTIC X-RAYFinal Result * (ABNORMAL) GLUCOSE, FINGERSTICK-IN OFFICE (06/28/2025 4:49 PM EST)Component ValueRef RangeTest MethodAnalysis TimePerformed AtPathologist Signature Glucose, MIZ591(H)74 - 109 mg/dL06/28/2025 4:59 PM ESTNURSING GLUCOSE PROGRAM Specimen (Source)Anatomical Location / LateralityCollection Method / Volume Collection TimeReceived TimeBloodBLOOD SPECIMEN / Litzjgp3006/28/2025 4:49 PM EST06/28/2025 4:59 PM EST Narrative Authorizing ProviderResult TypeResult StatusTo Be AssignedEC BACK OFFICE LABS Final ResultPerforming OrganizationAddressCity/State/ZIP CodePhone Number NURSING GLUCOSE PROGRAM [address] [place] [address] * BLOOD CULTURE (06/28/2025 12:37 PM EST)ComponentValueRef RangeTest Method Analysis TimePerformed AtPathologist SignatureBlood CultureNo Suzhfr0707/03/2025 1:00 PM ESTS PATHOLOGY LABORATORYSpecimen (Source)Anatomical Location / LateralityCollection Method / VolumeCollection TimeReceived TimeBlood PERIPHERAL BLOOD SPECIMEN / UnknownVenipuncture / Uyudcqg2906/28/2025 12:37 PM EST06/28/2025 12:46 PM EST Narrative Authorizing ProviderResult TypeResult StatusDelight [facility] MICROBIOLOGY Final ResultPerforming OrganizationAddressCity/State/ZIP CodePhone Number [facility]ORAT[facility] [address] [place] [phone] * (ABNORMAL) GLUCOSE, FINGERSTICK-IN OFFICE (06/28/2025 11:18 AM EST)Component ValueRef RangeTest MethodAnalysis TimePerformed AtPathologist Signature Glucose, BSF635(H)74 - 109 mg/dL06/28/2025 11:24 AM ESTNURSING GLUCOSE PROGRAM Specimen (Source)Anatomical Location / LateralityCollection Method / Volume Collection TimeReceived TimeBloodBLOOD SPECIMEN / Epfaesf0206/28/2025 11:18 AM EST06/28/2025 11:24 AM EST Narrative Authorizing ProviderResult TypeResult StatusTo Be AssignedEC BACK OFFICE LABS Final ResultPerforming OrganizationAddressCity/State/ZIP CodePhone Number NURSING GLUCOSE PROGRAM [address] [place] [phone] * (ABNORMAL) GLUCOSE, FINGERSTICK-IN OFFICE (06/28/2025 7:46 AM EST)Component ValueRef RangeTest MethodAnalysis TimePerformed AtPathologist Signature Glucose, RGJ026(H)74 - 109 mg/dL06/28/2025 7:52 AM ESTNURSING GLUCOSE PROGRAM Specimen (Source)Anatomical Location / LateralityCollection Method / Volume Collection TimeReceived TimeBloodBLOOD SPECIMEN / Wdfijwi0206/28/2025 7:46 AM EST06/28/2025 7:52 AM EST Narrative Authorizing ProviderResult TypeResult StatusTo Be AssignedEC BACK OFFICE LABS Final ResultPerforming OrganizationAddressCity/State/ZIP CodePhone Number NURSING GLUCOSE PROGRAM [address] [place] [phone] * BLOOD CULTURE (06/28/2025 5:58 AM EST)ComponentValueRef RangeTest Method Analysis TimePerformed AtPathologist SignatureBlood CultureNo Elxkht7607/03/2025 7:01 AM ESTS PATHOLOGY LABORATORYSpecimen (Source)Anatomical Location / LateralityCollection Method / VolumeCollection TimeReceived TimeBlood PERIPHERAL BLOOD SPECIMEN / UnknownVenipuncture / Cvlnhdk3206/28/2025 5:58 AM EST06/28/2025 6:06 AM EST Narrative Authorizing ProviderResult TypeResult StatusJeramana ESPARZA MICROBIOLOGYFinal ResultPerforming OrganizationAddressCity/State/ZIP CodePhone Number [facility] PATHOLOG[facility] LABORATORY [address] [place] [phone] * FERRITIN (06/28/2025 1:35 AM EST)ComponentValueRef RangeTest MethodAnalysis TimePerformed AtPathologist IlbzfeoujMoheaojl312.223.9 - 336.2 ng/mL06/28/2025 12:49 PM ESTPRES[facility] PATH[facility] LABORATORYSpecimen (Source)Anatomical Location / LateralityCollection Method / VolumeCollection TimeReceived TimeBloodBLOOD SPECIMEN / UnknownVenipuncture / Jftmkty7106/28/2025 1:35 AM EST06/28/2025 2:00 AM EST Narrative Authorizing ProviderResult TypeResult StatusDelrj [facility] Final ResultPerforming OrganizationAddressCity/State/ZIP CodePhone Number [facility] PATHOLOG[facility] LABORATORY [address] [place] [phone] * (ABNORMAL) IRON AND TIBC (06/28/2025 1:35 AM EST)ComponentValueRef RangeTest MethodAnalysis TimePerformed AtPathologist DpgqpnsjqRyqp99(L)50 - 212 ug/dL 06/28/2025 12:31 PM [facility] PATHOLOGY LABORATORYIron Saturation5(L)20 - 55 % 06/28/2025 12:31 PM [facility]PRES[facility] EMANUCIJOXHBTZ553481 - 300 ug/mL 06/28/2025 12:31 PM [facility] PATHOLOGY CAFOHSRBPSVmzvuagriuw522(L)203 - 362 mg/dL06/28/2025 12:31 PM [facility] PATHOLOGY LABORATORYSpecimen (Source) Anatomical Location / LateralityCollection Method / VolumeCollection Time Received TimeBloodBLOOD SPECIMEN / UnknownVenipuncture / Lhccwqz4906/28/2025 1:35 AM EST06/28/2025 2:00 AM EST Narrative Authorizing ProviderResult TypeResult StatusMaribel [facility] Final ResultPerforming OrganizationAddressCity/State/ZIP CodePhone Number [facility]OR[facility] [address] [place] [address] * (ABNORMAL) CBC WITH DIFFERENTIAL (06/28/2025 1:35 AM EST)ComponentValueRef RangeTest MethodAnalysis TimePerformed AtPathologist SignatureWBC7.04.5 - 11.5 K/uL06/28/2025 2:09 AM ESTS PATHOLOGY LABORATORYRBC3.31(L)4.50 - 5.90 M/uL 06/28/2025 2:09 AM [facility] PATHOLOGY LABORATORYHemoglobin8.8(L)13.9 - 16.3 g/dL 06/28/2025 2:09 AM [facility] PATHOLOGY YZFMMMZGFVEhosmtsdlb74.6(L)41.0 - 53.0 % 06/28/2025 2:09 AM [facility] PATHOLOGY QSTVVTDBNYLSJ7145 - 100 fL06/28/2025 2:09 AM [facility] PATHOLOGY MJVEOTGTGKVZO45.626.0 - 34.0 pg06/28/2025 2:09 AM [facility] PATHOLOGY YXRAKDQXMTUTJN20.032.0 - 35.9 g/dL06/28/2025 2:09 AM [facility] PATHOLOGY SROSXPPGLTQklecfes952(H)150 - 400 K/uL06/28/2025 2:09 AM [facility] PATHOLOGY LABORATORYRDW-CV15.3(H)11.5 - 14.5 %06/28/2025 2:09 AM [facility] PATHOLOGY LABORATORYMPV9.97.5 - 11.2 fL06/28/2025 2:09 AM [facility] PATHOLOGY ODORQNBEUNBtzilmqijdo78.931.0 - 76.0 %06/28/2025 2:09 AM [facility] PATHOLOGY LABORATORYNeutrophil #5.011.50 - 8.00 K/uL06/28/2025 2:09 AM [facility] PATHOLOGY YQITPIQVNUKgyeasmipon39.5(L)24.0 - 44.0 %06/28/2025 2:09 AM [facility] PATHOLOGY LABORATORYLymphocytes #0.94(L)1.00 - 4.80 K/uL06/28/2025 2:09 AM [facility] PATHOLOGY JIORJBLECUJmcrobytg34.0(H)2.0 - 11.0 %06/28/2025 2:09 AM [facility] PATHOLOGY LABORATORYMonocyte #0.840.20 - 1.00 K/uL06/28/2025 2:09 AM [facility] PATHOLOGY LABORATORYEosinophil1.80.1 - 4.0 %06/28/2025 2:09 AM [facility] PATHOLOGY LABORATORYEosinophil #0.130.00 - 0.70 K/uL06/28/2025 2:09 AM [facility] PATHOLOGY LABORATORYBasophils0.7<=1.9 %06/28/2025 2:09 AM [facility] PATHOLOGY LABORATORYBasophil #0.050.00 - 0.20 K/uL06/28/2025 2:09 AM [facility] PATHOLOGY LABORATORYSpecimen (Source)Anatomical Location / LateralityCollection Method / VolumeCollection TimeReceived TimeBloodBLOOD SPECIMEN / UnknownVenipuncture / Logiolw4706/28/2025 1:35 AM EST06/28/2025 2:00 AM EST Narrative Authorizing ProviderResult TypeResult StatusGhdonnie ESPARZA LAB ORDER ONLY Final ResultPerforming OrganizationAddressCity/State/ZIP CodePhone Number [facility] [address] [place] [address] * (ABNORMAL) BASIC METABOLIC PANEL (06/28/2025 1:35 AM EST)ComponentValueRef RangeTest MethodAnalysis TimePerformed AtPathologist FlyusjdxdEuirzst372(H)74 - 109 mg/dL06/28/2025 2:34 AM [facility] PATHOLOGY YCJGQYRLNEMtpsnw683(L)136 - 145 mmol/L108/29/2024 2:34 AM [facility] PATHOLOGY LABORATORYPotassium4.63.5 - 5.0 mmol/L108/29/2024 2:34 AM [facility] PATHOLOGY LABORATORYCarbon Zqfgrjv3964 - 31 mmol/L108/29/2024 2:34 AM [facility] PATHOLOGY TKXYTMKTKSNhdccimu83715 - 107 mmol/L 06/28/2025 2:34 AM [facility] PATHOLOGY LABORATORYBlood Urea Vqlwvrha575 - 25 mg/dL06/28/2025 2:34 AM [facility] PATHOLOGY LABORATORYCreatinine0.950.70 - 1.30 mg/dL06/28/2025 2:34 AM [facility] PATHOLOGY LABORATORYCalcium8.0(L)8.6 - 10.3 mg/dL06/28/2025 2:34 AM [facility] PATHOLOGY LABORATORYAnion Wfu3654 - 20 06/28/2025 2:34 AM [facility] PATHOLOGY LABORATORYEstimated GFR (CKD-EPI)77>=60 mL/min/1.51jdj0108/29/2024 2:34 AM [facility] PATHOLOGY LABORATORYComment: 2020 CKD EPI Equation using Creatinine without Race Comment: ??Estimated glomerular filtration rate (eGFR) is calculated without a race coefficient. Values should be interpreted in the context of the patient's full clinical presentation. Reference: 1. Geoff C, Shirley M, Rossana GUNDERSON, et al.. A Unifying Approach for GFR Estimation: Recommendations of the NKF-ASN Task Force on Reassessing the Inclusion of Race in Diagnosing Kidney Disease. AmericanJournal of Kidney Diseases 2021;79(2):268-88.e1. 2. N Engl J Med 1 Vol. 385 Issue 19 Pages 8214-9591 Specimen (Source)Anatomical Location / LateralityCollection Method / Volume Collection TimeReceived TimeBloodBLOOD SPECIMEN / UnknownVenipuncture / Unknown 06/28/2025 1:35 AM EST06/28/2025 2:00 AM EST Narrative Authorizing ProviderResult TypeResult StatusSudarshan Lovett MD98 GENERAL LAB Final ResultPerforming OrganizationAddressCity/State/ZIP CodePhone Number [facility] [address] [place] [address] * (ABNORMAL) GLUCOSE, FINGERSTICK-IN OFFICE (06/27/2025 10:12 PM EST)Component ValueRef RangeTest MethodAnalysis TimePerformed AtPathologist Signature Glucose, DKM636(H)74 - 109 mg/dL06/27/2025 10:18 PM ESTNURSING GLUCOSE PROGRAM Specimen (Source)Anatomical Location / LateralityCollection Method / Volume Collection TimeReceived TimeBloodBLOOD SPECIMEN / Zrmshkp1206/27/2025 10:12 PM EST06/27/2025 10:18 PM EST Narrative Authorizing ProviderResult TypeResult StatusTo Be AssignedEC BACK OFFICE LABS Final ResultPerforming OrganizationAddressCity/State/ZIP CodePhone Number NURSING GLUCOSE PROGRAM [address] [place] [address] * (ABNORMAL) GLUCOSE, FINGERSTICK-IN OFFICE (06/27/2025 4:02 PM EST)Component ValueRef RangeTest MethodAnalysis TimePerformed AtPathologist Signature Glucose, TRC403(H)74 - 109 mg/dL06/27/2025 4:09 PM ESTNURSING GLUCOSE PROGRAM Specimen (Source)Anatomical Location / LateralityCollection Method / Volume Collection TimeReceived TimeBloodBLOOD SPECIMEN / Jpsfchp9406/27/2025 4:02 PM EST06/27/2025 4:09 PM EST Narrative Authorizing ProviderResult TypeResult StatusTo Be AssignedEC BACK OFFICE LABS Final ResultPerforming OrganizationAddressCity/State/ZIP CodePhone Number NURSING GLUCOSE PROGRAM [address] [place] [phone] * MR T-SPINE W/+W/O (06/27/2025 2:50 PM EST)Anatomical RegionLateralityModality MR T- Spine, T-spineN/AMagnetic ResonanceSpecimen (Source)Anatomical Location / LateralityCollection Method / VolumeCollection TimeReceived Time06/27/2025 3:12 PM EST Impressions 06/27/2025 3:47 PM EST Limited exam. 1. ??Acute/subacute compression fracture of T10 with associated marrow edema and enhancement extending into the inferior endplate of T9. Superimposed osteomyelitis cannot be excluded given the concurrent bacteremia. 2. ??Thin signal abnormality throughout the dorsal epidural space. This may relate to normal epidural lipomatosis with incomplete fat saturation or superimposed edema within the epidural fat. Epidural hematoma or an epidural collection is a less likely possibility. Correlate with CT. MACRO: None Narrative 06/27/2025 3:47 PM EST EXAMINATION: MR T-SPINE W/+W/OPRO 06/27/2025 02:50 PM CLINICAL HISTORY: Acute back pain r/o discitis ASSOCIATED DIAGNOSIS: Acute back pain r/o discitis ORDERING PROVIDER: [facility] NOTE: ??Pacemaker patient. ??Best imaging obtainable due to patient anatomy and motion due to discomfort. ??Dark artifact on post-contrast imaging. ??Repeats with scan parameter adjustments made. ??Patient unable to tolerate any further imaging/repeats. ?? COMPARISON: None TECHNIQUE: Patient questionnaire was completed and was reviewed by MRI personnel prior to the patient entering the scanner. Multiplanar, multisequence MR imaging of the thoracic spine was performed with and without intravenous contrast. INTRA-PROCEDURE MEDS: Gadoterate Meglumine (DOTAREM) 10 MMOL/20ML solution 12 mL Route: Intravenous FINDINGS: The study has limitations with with diagnostic evaluation of postcontrast imaging in the upper thoracic spine. There is incomplete fat saturation on STIR imaging. Alignment: [Exaggeration of the thoracic kyphosis. Moderate dextroscoliosis. Vertebral Body Height, bone marrow and discs: T2 linear hypointense band in the subchondral superior endplate of T10 with marrow edema and enhancement diffusely throughout the T10 vertebral body compatible with a acute/subacute fracture with minimal height loss. Mild marrow edema and enhancement inthe inferior endplate of T9. No epidural abscess. Chronic mild superior plate compression fracture of T8. Presumed Schmorl's node in the inferior endplate of T12. Nonspecific T2 hyperintense signal and enhancement in the superior endplate of T12. Mild nonspecific enhancement in the superior endplate of T7. Cord: Normal signal intensity and morphology. There is no abnormal intramedullary or leptomeningealenhancement. Paraspinal Soft Tissues: Limited. Bilateral pleural effusions with probable atelectasis or consolidation in the left lower lobe. Bilateral renal cysts. Canal and Foramina: Thin T1 hyperintense signal throughout the dorsal epidural space in the thoracic levels with incomplete fat saturation on STIR imaging and bright signal on postcontrast imaging. No significant mass effect or associated narrowing. No significant canal stenosis. Small disc protrusions results in mild ventral CSF effacement worse at T6-T7. Procedure Note Gray Banegas, DO - 06/27/2025 EXAMINATION: MR T-SPINE W/+W/OPRO 06/27/2025 02:50 PM CLINICAL HISTORY: Acute back pain r/o discitis ASSOCIATED DIAGNOSIS: Acute back pain r/o discitis ORDERING PROVIDER: [facility] NOTE: Pacemaker patient. Best imaging obtainable due topatient anatomy and motion due to discomfort. Dark artifact onpost-contrast imaging. Repeats with scan parameter adjustments made.Patient unable to tolerate any further imaging/repeats. COMPARISON: None TECHNIQUE: Patient questionnaire was completed and was reviewed by MRIpersonnel prior to the patient entering the scanner. Multiplanar,multisequence MR imaging of the thoracic spine was performed with andwithout intravenous contrast. INTRA-PROCEDURE MEDS: Gadoterate Meglumine (DOTAREM) 10 MMOL/20ML qoharwez41 mL Route: Intravenous FINDINGS: The study has limitations with with diagnostic evaluation of postcontrastimaging in the upper thoracic spine. There is incomplete fat saturation onSTIR imaging. Alignment: [Exaggeration of the thoracic kyphosis. Moderatedextroscoliosis. Vertebral Body Height, bone marrow and discs: T2 linear hypointense bandin the subchondral superior endplate of T10 with marrow edema andenhancement diffusely throughout the T10 vertebral body compatible with aacute/subacute fracture with minimal height loss. Mild marrow edema andenhancement in the inferior endplate of T9. No epidural abscess. Chronicmild superior plate compression fracture of T8. Presumed Schmorl's node inthe inferior endplate of T12. Nonspecific T2 hyperintense signal andenhancement in the superior endplate of T12. Mild nonspecific enhancementin the superior endplate of T7. Cord: Normal signal intensity and morphology. There is no abnormalintramedullary or leptomeningeal enhancement. Paraspinal Soft Tissues: Limited. Bilateral pleural effusions withprobable atelectasis or consolidation in the left lower lobe. Bilateralrenal cysts. Canal and Foramina: Thin T1 hyperintense signal throughout the dorsalepidural space in the thoracic levels with incomplete fat saturation onSTIR imaging and bright signal on postcontrast imaging. No significantmass effect or associated narrowing. No significant canal stenosis. Smalldisc protrusions results in mild ventral CSF effacement worse at T6-T7. IMPRESSION: Limited exam. 1. Acute/subacute compression fracture of T10 with associated marrowedema and enhancement extending into the inferior endplate of T9.Superimposed osteomyelitis cannot be excluded given the concurrentbacteremia. 2. Thin signal abnormality throughout the dorsal epidural space. This mayrelate to normal epidural lipomatosis with incomplete fat saturation orsuperimposed edema within the epidural fat. Epidural hematoma or anepidural collection is a less likely possibility. Correlate with CT. MACRO: None Authorizing ProviderResult TypeResult StatusDelight [facility] MRIFinal Result * MR L-SPINE W/+W/O (06/27/2025 2:50 PM EST)Anatomical RegionLateralityModality MR L-Spine, L-spineN/AMagnetic ResonanceSpecimen (Source)Anatomical Location / LateralityCollection Method / VolumeCollection TimeReceived Time06/27/2025 3:25 PM EST Impressions 06/27/2025 3:44 PM EST Severely limited suboptimal study. 1. ??Diffuse enhancement and marrow edema within the S1 sacral segment extending into the sacral ala and minimally S2 segment. Differential includes osteomyelitis or edema and enhancement from a fracture. Metastasis is felt less likely. Correlate with CT. 2. ??Mild nonspecific enhancement within L5. 3. ??Small structure in the ventral epidural space at L5. This may relate to inflammation surrounding epidural fat and the venous plexus. An epidural abscess is felt less likely. MACRO: None Narrative 06/27/2025 3:44 PM EST EXAMINATION: MR L-SPINE W/+W/O PRO 06/27/2025 02:50 PM CLINICAL HISTORY: L-spine infection suspected; Low back pain, less than 6 weeks ASSOCIATED DIAGNOSIS: L-spine infection suspected Low back pain, less than 6 weeks ORDERING PROVIDER: [facility] NOTE: ??Pacemaker patient. ??Best imaging obtainable due to patient anatomy and patient discomfort. ??Repeats performed as possible. ?? COMPARISON: None TECHNIQUE: Patient questionnaire was completed and was reviewed by MRI personnel prior to the patient entering the scanner. Multiplanar, multisequence MR imaging of the lumbar spine was performed with and without intravenous contrast. with and without. INTRA-PROCEDURE MEDS: Gadoterate Meglumine (DOTAREM) 10 MMOL/20ML solution 12 mL Route: Intravenous FINDINGS: The study is limited and suboptimal with poor cyadtn-vd-rjlnr ratio. Incomplete fat-saturated imaging. Numbering: The most inferior fully formed disc space is designated L5-S1. Alignment: Grade 1 anterolisthesis of L5 on S1. Mild stepwise retrolisthesis spanning the T12-L4 levels. Vertebral body height, bone marrow Marrow and Discs: ??Diffuse heterogeneous marrow signal with scattered mild height loss or concave endplate deformities. Diffuse heterogeneous marrow signal. Nonspecific enhancement within L5. Please see sacrum section below. Conus: Normal position and signal intensity. Paraspinal Soft Tissues: Limited. T12-L1: Shallow disc bulge without significant canal stenosis. Mild bilateral foraminal stenosis. L1-L2: Shallow disc bulge with without significant canal stenosis. Bilateral foraminal stenosis. L2-L3: Posterior projecting osteophytes and ligamentum flavum hypertrophy with mild canal stenosis and moderate right lateral recess stenosis. Moderate bilateral foraminal stenosis. L3-L4: Patent canal with moderate bilateral foraminal stenosis. L4-L5: No significant canal stenosis. Moderate bilateral foraminal stenosis. L5-S1: Disc uncovering with intermediate density within the ventral canal which is indeterminate inetiology. Postcontrast imaging demonstrates peripheral enhancement hypoenhancement centrally withinthis structure. No significant canal stenosis. Moderate/severe right foraminal stenosis. Moderate left foraminal stenosis. Sacrum: Diffuse marrow edema and enhancement within the S1 segment extending into the sacral ala and partially into the S2 vertebral body superiorly and anteriorly. Procedure Note Gray Banegas, DO - 06/27/2025 EXAMINATION: MR L-SPINE W/+W/O PRO 06/27/2025 02:50 PM CLINICAL HISTORY: L-spine infection suspected; Low back pain, less than 6weeks ASSOCIATED DIAGNOSIS: L-spine infection suspected Low back pain, less than 6 weeks ORDERING PROVIDER: [facility] NOTE: Pacemaker patient. Best imaging obtainable due topatient anatomy and patient discomfort. Repeats performed as possible. COMPARISON: None TECHNIQUE: Patient questionnaire was completed and was reviewed by MRIpersonnel prior to the patient entering the scanner. Multiplanar,multisequence MR imaging of the lumbar spine was performed with andwithout intravenous contrast. with and without. INTRA-PROCEDURE MEDS: Gadoterate Meglumine (DOTAREM) 10 MMOL/20ML psgibchm08 mL Route: Intravenous FINDINGS: The study is limited and suboptimal with poor rjfhll-kx-vrlpx ratio.Incomplete fat-saturated imaging. Numbering: The most inferior fully formed disc space is designatedL5-S1. Alignment: Grade 1 anterolisthesis of L5 on S1. Mild stepwiseretrolisthesis spanning the T12-L4 levels. Vertebral body height, bone marrow Marrow and Discs: Diffuseheterogeneous marrow signal with scattered mild height loss or concaveendplate deformities. Diffuse heterogeneous marrow signal. Nonspecificenhancement within L5. Please see sacrum section below. Conus: Normal position and signal intensity. Paraspinal Soft Tissues: Limited. T12-L1: Shallow disc bulge without significant canal stenosis. Mildbilateral foraminal stenosis. L1-L2: Shallow disc bulge with without significant canal stenosis.Bilateral foraminal stenosis. L2-L3: Posterior projecting osteophytes and ligamentum flavum hypertrophywith mild canal stenosis and moderate right lateral recess stenosis.Moderate bilateral foraminal stenosis. L3-L4: Patent canal with moderate bilateral foraminal stenosis. L4-L5: No significant canal stenosis. Moderate bilateral foraminalstenosis. L5-S1: Disc uncovering with intermediate density within the ventral canalwhich is indeterminate in etiology. Postcontrast imaging demonstratesperipheral enhancement hypoenhancement centrally within this structure. Nosignificant canal stenosis. Moderate/severe right foraminal stenosis.Moderate left foraminal stenosis. Sacrum: Diffuse marrow edema and enhancement within the S1 segmentextending into the sacral ala and partially into the S2 vertebral bodysuperiorly and anteriorly. IMPRESSION: Severely limited suboptimal study. 1. Diffuse enhancement and marrow edema within the S1 sacral segmentextending into the sacral ala and minimally S2 segment. Differentialincludes osteomyelitis or edema and enhancement from a fracture.Metastasis is felt less likely. Correlate with CT. 2. Mild nonspecific enhancement within L5. 3. Small structure in the ventral epidural space at L5. This may relateto inflammation surrounding epidural fat and the venous plexus. Anepidural abscess is felt less likely. MACRO: None Authorizing ProviderResult TypeResult StatusDelight [facility] MD MRIFinal Result * (ABNORMAL) GLUCOSE, FINGERSTICK-IN OFFICE (06/27/2025 8:20 AM EST)Component ValueRef RangeTest MethodAnalysis TimePerformed AtPathologist Signature Glucose, CWK634(H)74 - 109 mg/dL06/27/2025 8:26 AM ESTNURSING GLUCOSE PROGRAM Specimen (Source)Anatomical Location / LateralityCollection Method / Volume Collection TimeReceived TimeBloodBLOOD SPECIMEN / Vmvqawz5006/27/2025 8:20 AM EST06/27/2025 8:26 AM EST Narrative Authorizing ProviderResult TypeResult StatusTo Be AssignedEC BACK OFFICE LABS Final ResultPerforming OrganizationAddressCity/State/ZIP CodePhone Number NURSING GLUCOSE PROGRAM [address] [place] [address] * (ABNORMAL) CBC WITH DIFFERENTIAL (06/27/2025 5:43 AM EST)ComponentValueRef RangeTest MethodAnalysis TimePerformed AtPathologist SignatureWBC7.94.5 - 11.5 K/uL06/27/2025 6:22 AM ESTS PATHOLOGY LABORATORYRBC3.38(L)4.50 - 5.90 M/uL 06/27/2025 6:22 AM ESTS PATHOLOGY LABORATORYHemoglobin9.1(L)13.9 - 16.3 g/dL 06/27/2025 6:22 AM [facility] PATHOLOGY MDRQRFORNPBizvjjtudl18.1(L)41.0 - 53.0 % 06/27/2025 6:22 AM [facility] PATHOLOGY NQQIGRSACTPZD9051 - 100 fL06/27/2025 6:22 AM [facility] PATHOLOGY AVBGZJGEYYXEA15.826.0 - 34.0 pg06/27/2025 6:22 AM [facility] PATHOLOGY QCIHXVGSFKGRPQ53.532.0 - 35.9 g/dL06/27/2025 6:22 AM [facility] PATHOLOGY CUSKMDIVPTUeztylvr377(H)150 - 400 K/uL06/27/2025 6:22 AM [facility] PATHOLOGY LABORATORYRDW-CV15.3(H)11.5 - 14.5 %06/27/2025 6:22 AM [facility] PATHOLOGY TDJWMHMYPXWAC71.07.5 - 11.2 fL06/27/2025 6:22 AM [facility] PATHOLOGY BOBDKIPUPPYhbxuxuhgex03.631.0 - 76.0 %06/27/2025 6:22 AM [facility] PATHOLOGY LABORATORYNeutrophil #5.871.50 - 8.00 K/uL06/27/2025 6:22 AM [facility] PATHOLOGY VCLYYAZQHHCuvzrjbdkio92.9(L)24.0 - 44.0 %06/27/2025 6:22 AM [facility] PATHOLOGY LABORATORYLymphocytes #0.86(L)1.00 - 4.80 K/uL06/27/2025 6:22 AM [facility] PATHOLOGY NDCEKHNVOGMkvsufmak09.3(H)2.0 - 11.0 %06/27/2025 6:22 AM [facility] PATHOLOGY LABORATORYMonocyte #0.970.20 - 1.00 K/uL06/27/2025 6:22 AM [facility] LABORATORYEosinophil1.70.1 - 4.0 %06/27/2025 6:22 AM [facility] PATHOLOGY LABORATORYEosinophil #0.130.00 - 0.70 K/uL06/27/2025 6:22 AM [facility] PATHOLOGY LABORATORYBasophils0.6<=1.9 %06/27/2025 6:22 AM [facility] PATHOLOGY LABORATORYBasophil #0.040.00 - 0.20 K/uL06/27/2025 6:22 AM [facility] PATHOLOGY LABORATORYSpecimen (Source)Anatomical Location / LateralityCollection Method / VolumeCollection TimeReceived TimeBloodBLOOD SPECIMEN / UnknownVenipuncture / Ihpgnwx8806/27/2025 5:43 AM EST06/27/2025 6:10 AM EST Narrative Authorizing ProviderResult TypeResult StatusSudarshan ESPARZA LAB ORDER ONLY Final ResultPerforming OrganizationAddressCity/State/ZIP CodePhone Number [facility] [address] [place] [address] * (ABNORMAL) VITAMIN B12 (CYANOCOBALAMIN) (06/27/2025 5:43 AM EST)ComponentValue Ref RangeTest MethodAnalysis TimePerformed AtPathologist SignatureVitamin B12 971(H)180 - 914 pg/mL06/27/2025 7:07 AM [facility] PATHOLOGY LABORATORYSpecimen (Source)Anatomical Location / LateralityCollection Method / VolumeCollection TimeReceived TimeBloodBLOOD SPECIMEN / UnknownVenipuncture / Jpgaldc5506/27/2025 5:43 AM EST06/27/2025 6:10 AM EST Narrative [facility] PATH[facility] - 06/27/2025 7:07 AM EST Deficient: <= 145 pg/mL Insufficient: 145 - 180 pg/mL Sufficient: 180 - 914 pg/mL ?? Authorizing ProviderResult TypeResult StatusDelrj PONCE GENERAL LAB Final ResultPerforming OrganizationAddressCity/State/ZIP CodePhone Number [facility] PATH[facility]ORATORY [address] [place] [address] * FOLIC ACID (06/27/2025 5:43 AM EST)ComponentValueRef RangeTest MethodAnalysis TimePerformed AtPathologist SignatureFolic Acid, Serum19.05.9 - 24.7 ng/mL 06/27/2025 7:07 AM [facility] PATHOLOGY LABORATORYSpecimen (Source)Anatomical Location / LateralityCollection Method / VolumeCollection TimeReceived Time BloodBLOOD SPECIMEN / UnknownVenipuncture / Ziadfag7406/27/2025 5:43 AM EST 06/27/2025 6:10 AM EST Narrative Authorizing ProviderResult TypeResult StatusDelight Mungoma MD98 GENERAL LAB Final ResultPerforming OrganizationAddressty/State/ZIP CodePhone Number [facility] PATH[facility] LABORATORY [address] [place] [phone] * (ABNORMAL) HAPTOGLOBIN (06/27/2025 5:43 AM EST)ComponentValueRef RangeTest MethodAnalysis TimePerformed AtPathologist IyryehoopRbfxnfxkmly373(H)44 - 215 mg/dL06/27/2025 7:35 AM ESTPRES[facility] LABORATORYSpecimen (Source)Anatomical Location / LateralityCollection Method / VolumeCollection TimeReceived Time BloodBLOOD SPECIMEN / UnknownVenipuncture / Sweoodg1706/27/2025 5:43 AM EST 06/27/2025 6:10 AM EST Narrative Authorizing ProviderResult TypeResult StatusMaribel [facility]CE [facility] LAB Final ResultPerforming OrganizationAddressty/State/ZIP CodePhone Number [facility] PATH[facility] LABORATORY [address] [place] [phone] * LDH (06/27/2025 5:43 AM EST)ComponentValueRef RangeTest MethodAnalysis Time Performed AtPathologist RmclajrppVK824810 - 271 IU/L108/28/2024 6:43 AM ESTPRES[facility] LABORATORYSpecimen (Source)Anatomical Location / Laterality Collection Method / VolumeCollection TimeReceived TimeBloodBLOOD SPECIMEN / UnknownVenipuncture / Muutvja0306/27/2025 5:43 AM EST06/27/2025 6:10 AM EST Narrative Authorizing ProviderResult TypeResult StatusMaribel P[facility] LAB Final ResultPerforming OrganizationAddressty/State/ZIP CodePhone Number [facility] PATH[facility] LABORATORY [address] [place] [phone] * FERRITIN (06/27/2025 5:43 AM EST)ComponentValueRef RangeTest MethodAnalysis TimePerformed AtPathologist KsqzzedudRcxpgcod214.023.9 - 336.2 ng/mL06/27/2025 7:07 AM ESTPRES[facility]TER[facility] PATHOLOGY LABORATORYSpecimen (Source)Anatomical Location / LateralityCollection Method / VolumeCollection TimeReceived TimeBloodBLOOD SPECIMEN / UnknownVenipuncture / Ofhsarl8906/27/2025 5:43 AM EST06/27/2025 6:10 AM EST Narrative Authorizing ProviderResult TypeResult StatusDelrj [facility] LAB Final ResultPerforming OrganizationAddressCity/State/ZIP CodePhone Number [facility] [address] [place] [phone] * (ABNORMAL) IRON AND TIBC (06/27/2025 5:43 AM EST)ComponentValueRef RangeTest MethodAnalysis TimePerformed AtPathologist FaksjcrrvIupr95(L)50 - 212 ug/dL 06/27/2025 7:07 AM ESTS PATHOLOGY LABORATORYIron Saturation8(L)20 - 55 % 06/27/2025 7:07 AM ESTS PATHOLOGY DFPXSPHFMFUQCX278683 - 300 ug/mL06/27/2025 7:07 AM ESTPRES[facility] FIMCPTXJLZRznnabeynbf857(L)203 - 362 mg/dL06/27/2025 7:07 AM ESTPRES[facility] PATH[facility] LABORATORYSpecimen (Source)Anatomical Location / LateralityCollection Method / VolumeCollection TimeReceived TimeBloodBLOOD SPECIMEN / UnknownVenipuncture / Fjygkzg9306/27/2025 5:43 AM EST06/27/2025 6:10 AM EST Narrative Authorizing ProviderResult TypeResult StatusMaribel [facility] Final ResultPerforming OrganizationAddressCity/State/ZIP CodePhone Number [facility] [address] [place] [phone] * (ABNORMAL) BASIC METABOLIC PANEL (06/27/2025 5:43 AM EST)ComponentValueRef RangeTest MethodAnalysis TimePerformed AtPathologist VrbogxvgrHmhncmy769(H)74 - 109 mg/dL06/27/2025 7:07 AM ESTS PATHOLOGY ABEEKJELTZJyjwwp463(L)136 - 145 mmol/L108/28/2024 7:07 AM ESTS PATHOLOGY LABORATORYPotassium4.23.5 - 5.0 mmol/L108/28/2024 7:07 AM ESTS PATHOLOGY LABORATORYCarbon Ylmsacl7211 - 31 mmol/L108/28/2024 7:07 AM ESTS PATHOLOGY OGLFSVKDDJJstzsjfx09902 - 107 mmol/L 06/27/2025 7:07 AM ESTS PATHOLOGY LABORATORYBlood Urea Ubmgylle569 - 25 mg/dL06/27/2025 7:07 AM ESTS PATHOLOGY LABORATORYCreatinine0.920.70 - 1.30 mg/dL06/27/2025 7:07 AM [facility] PATHOLOGY LABORATORYCalcium8.1(L)8.6 - 10.3 mg/dL06/27/2025 7:07 AM [facility] PATHOLOGY LABORATORYAnion Gth3289 - 20 06/27/2025 7:07 AM [facility] PATHOLOGY LABORATORYEstimated GFR (CKD-EPI)80>=60 mL/min/1.67zcv0208/28/2024 7:07 AM [facility] PATHOLOGY LABORATORYComment: 2020 CKD EPI Equation using Creatinine without Race Comment: ??Estimated glomerular filtration rate (eGFR) is calculated without a race coefficient. Values should be interpreted in the context of the patient's full clinical presentation. Reference: 1. Geoff C, Shirley M, Rossana GUNDERSON, et al.. A Unifying Approach for GFR Estimation: Recommendations of the NKF-ASN Task Force on Reassessing the Inclusion of Race in Diagnosing Kidney Disease. AmericanJournal of Kidney Diseases 2021;79(2):268-88.e1. 2. N Engl J Med 1 Vol. 385 Issue 19 Pages 3848-2497 Specimen (Source)Anatomical Location / LateralityCollection Method / Volume Collection TimeReceived TimeBloodBLOOD SPECIMEN / UnknownVenipuncture / Unknown 06/27/2025 5:43 AM EST06/27/2025 6:10 AM EST Narrative Authorizing ProviderResult TypeResult StatusSudarshan Lovett MD98 GENERAL LAB Final ResultPerforming OrganizationAddressCity/State/ZIP CodePhone Number [facility] [address] [place] [phone] * (ABNORMAL) GLUCOSE, FINGERSTICK-IN OFFICE (06/26/2025 9:20 PM EST)Component ValueRef RangeTest MethodAnalysis TimePerformed AtPathologist Signature Glucose, GLB191(H)74 - 109 mg/dL06/26/2025 9:26 PM ESTNURSING GLUCOSE PROGRAM Specimen (Source)Anatomical Location / LateralityCollection Method / Volume Collection TimeReceived TimeBloodBLOOD SPECIMEN / Pxkgxgy6006/26/2025 9:20 PM EST06/26/2025 9:26 PM EST Narrative Authorizing ProviderResult TypeResult StatusTo Be AssignedEC BACK OFFICE LABS Final ResultPerforming OrganizationAddressCity/State/ZIP CodePhone Number NURSING GLUCOSE PROGRAM [address] [place] [phone] * (ABNORMAL) GLUCOSE, FINGERSTICK-IN OFFICE (06/26/2025 4:31 PM EST)Component ValueRef RangeTest MethodAnalysis TimePerformed AtPathologist Signature Glucose, EML918(H)74 - 109 mg/dL06/26/2025 4:37 PM ESTNURSING GLUCOSE PROGRAM Specimen (Source)Anatomical Location / LateralityCollection Method / Volume Collection TimeReceived TimeBloodBLOOD SPECIMEN / Ykelgpe2206/26/2025 4:31 PM EST06/26/2025 4:37 PM EST Narrative Authorizing ProviderResult TypeResult StatusTo Be AssignedEC BACK OFFICE LABS Final ResultPerforming OrganizationAddressCity/State/ZIP CodePhone Number NURSING GLUCOSE PROGRAM [address] [place] [phone] * (ABNORMAL) BLOOD CULTURE (06/26/2025 3:09 PM EST)ComponentValueRef RangeTest MethodAnalysis TimePerformed AtPathologist SignatureBlood CulturePositive Culture Report(A)07/01/2025 10:54 AM [facility] PATHOLOGY LABORATORYBlood CultureAnaerobic bottle yields Staphylococcus aureus DORON 07/01/2025 10:54 AM [facility] PATHOLOGY LABORATORYGram StainAnaerobic bottle yields Gram Positive Cocci In Hqnspqag20/21/2025 10:54 AM [facility] PATH[facility] Specimen (Source)Anatomical Location / LateralityCollection Method / Volume Collection TimeReceived TimeBloodPERIPHERAL BLOOD SPECIMEN / UnknownVenipuncture / Zbbkkvp5706/26/2025 3:09 PM EST06/26/2025 3:18 PM EST Narrative OrganismAntibioticMethodSusceptibilityStaphylococcus aureusDaptomycinMIC 0.25 DORON: Sensitive Staphylococcus aureusLinezolidMIC 2 DORON: Sensitive Staphylococcus aureusOxacillinMIC <=0.25 DORON: Sensitive Staphylococcus aureusTrimethoprim + SulfamethoxazoleMIC <=10 DORON: Sensitive Staphylococcus aureusVancomycinMIC <=0.5 DORON: Sensitive Authorizing ProviderResult TypeResult StatusDelight [facility] MICROBIOLOGY Final ResultPerforming OrganizationAddressCity/State/ZIP CodePhone Number [facility] [address] [place] [phone] * BLOOD CULTURE (06/26/2025 3:00 PM EST)ComponentValueRef RangeTest Method Analysis TimePerformed AtPathologist SignatureBlood CultureNo Xpwcvo7607/01/2025 4:02 PM [facility] PATHOLOGY LABORATORYSpecimen (Source)Anatomical Location / LateralityCollection Method / VolumeCollection TimeReceived TimeBlood PERIPHERAL BLOOD SPECIMEN / UnknownVenipuncture / Ffamijp6806/26/2025 3:00 PM EST06/26/2025 3:18 PM EST Narrative [facility] - 07/01/2025 4:02 PM EST The results may be compromised due to inadequate volume of fluid received. A negative result does not rule out an infectious process. Authorizing ProviderResult TypeResult StatusMaribel ESPARZA MICROBIOLOGY Final ResultPerforming OrganizationAddressCity/State/ZIP CodePhone Number [facility] [address] [place] [phone] * OCCULT BLOOD, STOOL (06/26/2025 11:39 AM EST)ComponentValueRef RangeTest MethodAnalysis TimePerformed AtPathologist SignatureOccult Blood, Stool ErthuiumQqlacbbo75/16/2025 12:33 PM [facility] PATHOLOGY LABORATORYCollection Date 06/26/2512 12:33 PM [facility] PATHOLOGY LABORATORYSpecimen (Source) Anatomical Location / LateralityCollection Method / VolumeCollection Time Received TimeStoolSTOOL SPECIMEN / Qntelyt7506/26/2025 11:39 AM EST06/26/2025 11:45 AM EST Narrative Authorizing ProviderResult TypeResult StatusSudarshan [facility] Final ResultPerforming OrganizationAddressCity/State/ZIP CodePhone Number [facility]ORY [address] [place] [phone] * (ABNORMAL) GLUCOSE, FINGERSTICK-IN OFFICE (06/26/2025 11:34 AM EST)Component ValueRef RangeTest MethodAnalysis TimePerformed AtPathologist Signature Glucose, WSN783(H)74 - 109 mg/dL06/26/2025 11:40 AM ESTNURSING GLUCOSE PROGRAM Specimen (Source)Anatomical Location / LateralityCollection Method / Volume Collection TimeReceived TimeBloodBLOOD SPECIMEN / Epzzfip6806/26/2025 11:34 AM EST06/26/2025 11:40 AM EST Narrative Authorizing ProviderResult TypeResult StatusTo Be AssignedEC BACK OFFICE LABS Final ResultPerforming OrganizationAddressCity/State/ZIP CodePhone Number NURSING GLUCOSE PROGRAM [address] [place] [phone] * (ABNORMAL) GLUCOSE, FINGERSTICK-IN OFFICE (06/26/2025 7:54 AM EST)Component ValueRef RangeTest MethodAnalysis TimePerformed AtPathologist Signature Glucose, POC70(L)74 - 109 mg/dL06/26/2025 7:59 AM ESTNURSING GLUCOSE PROGRAM Specimen (Source)Anatomical Location / LateralityCollection Method / Volume Collection TimeReceived TimeBloodBLOOD SPECIMEN / Gmdsvsk0906/26/2025 7:54 AM EST06/26/2025 7:59 AM EST Narrative Authorizing ProviderResult TypeResult StatusTo Be AssignedEC BACK OFFICE LABS Final ResultPerforming OrganizationAddressty/State/ZIP CodePhone Number NURSING GLUCOSE PROGRAM [address] [place] [phone] * PROCALCITONIN (06/26/2025 4:10 AM EST)ComponentValueRef RangeTest Method Analysis TimePerformed AtPathologist SignatureProcalcitonin0.25<0.50 ng/mL 06/26/2025 8:18 PM [facility] PATHOLOG[facility] LABORATORYComment: Procalcitonin Concentrations < 0.50 ng/mL = Low Risk of severe sepsis and/or septic shock Procalcitonin Concentrations > 2.00 ng/mL = High Risk of severe sepsis and/or septic shock Concentrations under 0.50 ng/mL do not exclude local infections or systemic infections in their initial stages (e.g. under six hours from onset of illness). Procalcitonin concentrations between 0.50 and 2.00 ng/mL should be interpreted with consideration of the patient's history. In this range, it is recommended to retest Procalcitonin within 6 to 24 hours. Specimen (Source)Anatomical Location / LateralityCollection Method / Volume Collection TimeReceived TimeBloodBLOOD SPECIMEN / UnknownVenipuncture / Unknown 06/26/2025 4:10 AM EST06/26/2025 4:17 AM EST Narrative Authorizing ProviderResult TypeResult StatusMaribel [facility] Final ResultPerforming OrganizationAddressCity/State/ZIP CodePhone Number [facility] [address] [place] [phone] * (ABNORMAL) ERYTHROCYTE SEDIMENTATION RATE (06/26/2025 4:10 AM EST)Component ValueRef RangeTest MethodAnalysis TimePerformed AtPathologist SignatureSed Rate (ESR)37(H)<=20 mm/Hr06/26/2025 12:55 PM [facility] PATH[facility] Specimen (Source)Anatomical Location / LateralityCollection Method / Volume Collection TimeReceived TimeBloodBLOOD SPECIMEN / UnknownVenipuncture / Ojkkuoh3906/26/2025 4:10 AM EST06/26/2025 4:18 AM EST Narrative Authorizing ProviderResult TypeResult StatusTrachey Baptiste MD98 GENERAL LAB Final ResultPerforming OrganizationAddressCity/State/ZIP CodePhone Number [facility]ORY [address] [place] [phone] * (ABNORMAL) C-REACTIVE PROTEIN (06/26/2025 4:10 AM EST)ComponentValueRef Range Test MethodAnalysis TimePerformed AtPathologist SignatureC-Reactive Protein8.9 (H)<0.5 mg/dL06/26/2025 1:36 PM [facility] PATHOLOGY LABORATORYSpecimen (Source) Anatomical Location / LateralityCollection Method / VolumeCollection Time Received TimeBloodBLOOD SPECIMEN / UnknownVenipuncture / Fhptvbf9006/26/2025 4:10 AM EST06/26/2025 4:17 AM EST Narrative Authorizing ProviderResult TypeResult StatusJacqueline Baptiste MD98 GENERAL LAB Final ResultPerforming OrganizationAddressCity/State/ZIP CodePhone Number [facility] [address] [place] [phone] * (ABNORMAL) MANUAL DIFF AND MORPH (06/26/2025 4:10 AM EST)ComponentValueRef RangeTest MethodAnalysis TimePerformed AtPathologist SignatureSegmented Oyxwifsauli44.0(H)31.0 - 76.0 %06/26/2025 5:41 AM ESTPRES[facility] Lymphocytes7.0(L)24.0 - 44.0 %06/26/2025 5:41 AM [facility] PATH[facility] Reactive Lymph1%06/26/2025 5:41 AM [facility] PATHOLOGY LABORATORYMonocytes6.02.0 - 11.0 %06/26/2025 5:41 AM [facility] PATHOLOGY LABORATORYTotal Cells Zrxvprp562 06/26/2025 5:41 AM [facility] PATHOLOGY LABORATORYFragmented SOFTpa5806/26/2025 5:41 AM [facility] PATHOLOGY OGSHFHIDHVOisfrxtrrnLkj91/16/2025 5:41 AM [facility] PATHOLOGY LABORATORYTarget CgllyHwhlrqvi35/16/2025 5:41 AM [facility] PATHOLOGY LABORATORYBurr GlfhxNjv57/16/2025 5:41 AM [facility] PATHOLOG[facility] LABORATORY XirvhbaarkxzAdb32/16/2025 5:41 AM [facility] PATHOLOGY LABORATORYSegmented Neutrophil #9.55(H)1.50 - 8.00 K/uL06/26/2025 5:41 AM [facility] PATHOLOGY LABORATORYLymphocytes #0.78(L)1.00 - 4.80 K/uL06/26/2025 5:41 AM [facility] PATHOLOGY LABORATORYMonocyte #0.670.20 - 1.00 K/uL06/26/2025 5:41 AM [facility] PATHOLOGY LABORATORYReactiveLymph #0.11K/uL06/26/2025 5:41 AM [facility] PATHOLOGY LABORATORYSpecimen (Source)Anatomical Location / LateralityCollection Method / VolumeCollection TimeReceived TimeBloodBLOOD SPECIMEN / UnknownVenipuncture / Pkardwv0206/26/2025 4:10 AM EST06/26/2025 4:18 AM EST Narrative Authorizing ProviderResult TypeResult StatusGhassacayla ESPARZA LAB ORDER ONLY Final ResultPerforming OrganizationAddressCity/State/ZIP CodePhone Number [facility] [address] [place] [phone] * (ABNORMAL) CBC WITH DIFFERENTIAL (06/26/2025 4:10 AM EST)ComponentValueRef RangeTest MethodAnalysis TimePerformed AtPathologist SluqbjfmuPUS96.14.5 - 11.5 K/uL06/26/2025 5:41 AM [facility] PATHOLOGY LABORATORYRBC3.32(L)4.50 - 5.90 M/uL06/26/2025 5:41 AM [facility] PATHOLOGY LABORATORYHemoglobin8.7(L)13.9 - 16.3 g/dL06/26/2025 5:41 AM [facility] PATHOLOGY HHGVHJCJXNSnyrjvwylq40.8(L)41.0 - 53.0 %06/26/2025 5:41 AM [facility] PATHOLOGY ITSILCBSGCSNA4660 - 100 fL06/26/2025 5:41 AM [facility] PATHOLOGY CWYHHLXTCTXQF24.226.0 - 34.0 pg06/26/2025 5:41 AM EST [facility] PATHOLOGY ECJWVZKYFNDSZF93.532.0 - 35.9 g/dL06/26/2025 5:41 AM [facility] PATHOLOGY MSVHOZPAVFSzptapou328(H)150 - 400 K/uL06/26/2025 5:41 AM [facility] PATHOLOGY LABORATORYRDW-CV15.6(H)11.5 - 14.5 %06/26/2025 5:41 AM [facility] PATHOLOGY LABORATORYMPV9.97.5 - 11.2 fL06/26/2025 5:41 AM [facility] PATHOLOGY LABORATORYSpecimen (Source)Anatomical Location / LateralityCollection Method / VolumeCollection TimeReceived TimeBloodBLOOD SPECIMEN / UnknownVenipuncture / Ttjprcn6206/26/2025 4:10 AM EST06/26/2025 4:18 AM EST Narrative Authorizing ProviderResult TypeResult StatusGhassacayla ESPARZA LAB ORDER ONLY Final ResultPerforming OrganizationAddressCity/State/ZIP CodePhone Number [facility]ORY [address] [place] [phone] * (ABNORMAL) BASIC METABOLIC PANEL (06/26/2025 4:10 AM EST)ComponentValueRef RangeTest MethodAnalysis TimePerformed AtPathologist FzsafebibZglxynp373(H)74 - 109 mg/dL06/26/2025 4:41 AM [facility] PATHOLOGY JGUYNDIACGFiqmqo790(L)136 - 145 mmol/L108/27/2024 4:41 AM [facility] PATHOLOGY LABORATORYPotassium4.23.5 - 5.0 mmol/L108/27/2024 4:41 AM [facility] PATHOLOGY LABORATORYCarbon Oraojte0114 - 31 mmol/L108/27/2024 4:41 AM [facility] PATHOLOGY AMFZAGJRBNYfznnvdu98459 - 107 mmol/L 06/26/2025 4:41 AM [facility] PATHOLOGY LABORATORYBlood Urea Zwcvbjup028 - 25 mg/dL06/26/2025 4:41 AM [facility] PATHOLOGY LABORATORYCreatinine0.960.70 - 1.30 mg/dL06/26/2025 4:41 AM [facility] PATHOLOGY LABORATORYCalcium8.1(L)8.6 - 10.3 mg/dL06/26/2025 4:41 AM [facility] PATHOLOGY LABORATORYAnion Yzy2197 - 20 06/26/2025 4:41 AM [facility] PATHOLOGY LABORATORYEstimated GFR (CKD-EPI)76>=60 mL/min/1.17flp4708/27/2024 4:41 AM [facility] PATHOLOGY LABORATORYComment: 2020 CKD EPI Equation using Creatinine without Race Comment: ??Estimated glomerular filtration rate (eGFR) is calculated without a race coefficient. Values should be interpreted in the context of the patient's full clinical presentation. Reference: 1. Geoff C, Shirley M, Rossana GUNDERSON, et al.. A Unifying Approach for GFR Estimation: Recommendations of the NKF-ASN Task Force on Reassessing the Inclusion of Race in Diagnosing Kidney Disease. AmericanJournal of Kidney Diseases 2021;79(2):268-88.e1. 2. N Engl J Med 1 Vol. 385 Issue 19 Pages 7327-2446 Specimen (Source)Anatomical Location / LateralityCollection Method / Volume Collection TimeReceived TimeBloodBLOOD SPECIMEN / UnknownVenipuncture / Unknown 06/26/2025 4:10 AM EST06/26/2025 4:17 AM EST Narrative Authorizing ProviderResult TypeResult StatusGhdonnie Lovett MD98 GENERAL LAB Final ResultPerforming OrganizationAddressCity/State/ZIP CodePhone Number [facility] PATH[facility]ATORY [address] [place] [phone] * CONFIRMATION ABO/RH (06/26/2025 4:10 AM EST)ComponentValueRef RangeTest Method Analysis TimePerformed AtPathologist SignatureABO Rh TypeA Uxwrkots80/16/2025 4:46 AM [facility] PATHOLOGY LABORATORYSpecimen Expiration [id number] 06/26/2025 4:46 AM [facility] PATHOLOGY LABORATORYABO Rh/Blanca/TXRX HistoryA Pxfkmsxn94/16/2025 4:46 AM [facility] PATHOLOGY LABORATORYSpecimen (Source) Anatomical Location / LateralityCollection Method / VolumeCollection Time Received TimeBloodBLOOD SPECIMEN / UnknownVenipuncture / Yuvppfy8606/26/2025 4:10 AM EST06/26/2025 4:19 AM EST Narrative Authorizing ProviderResult TypeResult StatusSudarshan Lovett MDEC BLOOD BANKFinal ResultPerforming OrganizationAddressCity/State/ZIP CodePhone Number [facility] PATH[facility] LABORATORY [address] [place] [phone] * (ABNORMAL) GLUCOSE, FINGERSTICK-IN OFFICE (06/25/2025 9:35 PM EST)Component ValueRef RangeTest MethodAnalysis TimePerformed AtPathologist Signature Glucose, BQB699(H)74 - 109 mg/dL06/25/2025 9:42 PM ESTNURSING GLUCOSE PROGRAM Specimen (Source)Anatomical Location / LateralityCollection Method / Volume Collection TimeReceived TimeBloodBLOOD SPECIMEN / Kvzpuck9506/25/2025 9:35 PM EST06/25/2025 9:42 PM EST Narrative Authorizing ProviderResult TypeResult StatusTo Be AssignedEC BACK OFFICE LABS Final ResultPerforming OrganizationAddressCity/State/ZIP CodePhone Number NURSING GLUCOSE PROGRAM [address] [place] [phone] * (ABNORMAL) GLUCOSE, FINGERSTICK-IN OFFICE (06/25/2025 5:41 PM EST)Component ValueRef RangeTest MethodAnalysis TimePerformed AtPathologist Signature Glucose, VPD497(H)74 - 109 mg/dL06/25/2025 5:48 PM ESTNURSING GLUCOSE PROGRAM Specimen (Source)Anatomical Location / LateralityCollection Method / Volume Collection TimeReceived TimeBloodBLOOD SPECIMEN / Ovlfjbh7806/25/2025 5:41 PM EST06/25/2025 5:48 PM EST Narrative Authorizing ProviderResult TypeResult StatusTo Be AssignedEC BACK OFFICE LABS Final ResultPerforming OrganizationAddressty/State/ZIP CodePhone Number NURSING GLUCOSE PROGRAM [address] [place] [phone] * XR CHEST AP OR PA 1 VIEW (06/25/2025 2:16 PM EST)Anatomical RegionLaterality ModalityXR ChestN/AComputed RadiographySpecimen (Source)Anatomical Location / LateralityCollection Method / VolumeCollection TimeReceived Time06/25/2025 2:26 PM EST Impressions 06/25/2025 2:31 PM EST 1. Dual-chamber AICD device with satisfactory positions of its leads. 2. ??Left basilar pulmonary patchy airspace opacities/atelectasis and mild right basilar pulmonary subsegmental atelectasis. Pneumonia should be excluded clinically. MACRO: None Narrative 06/25/2025 2:31 PM EST EXAMINATION: XR CHEST AP OR PA 1 VIEWPRO 06/25/2025 02:16 PM CLINICAL HISTORY: Pacemaker lead placement assessment ASSOCIATED DIAGNOSIS: Pacemaker lead placement assessment ORDERING PROVIDER: [facility]OLOG[facility] NOTE: COMPARISON: None FINDINGS: Position and projection: AP erect. Limitations: None. Clinical considerations: Obtained from EMR. Lines, tubes, and devices: Left chest implanted dual-chamber AICD device with its lead terminating overlying the regions of the right atrial appendage and right ventricle. Intact AICD leads which make contact with its generator terminals. Cardiomediastinal silhouette: Upper limits normal heart size. Aorta: Atherosclerotic calcification. Lungs and pleura: Left basilar pulmonary patchy airspace opacities/atelectasis and mild right basilar pulmonary subsegmental atelectasis. No sizable pleural effusion or pneumothorax. Osseous structures: Unremarkable. Chest and abdominal wall: Unremarkable. Included upper abdomen: Right upper quadrant surgical clips, likely related to a cholecystectomy. Procedure Note Santy Salazar, DO - 06/25/2025 EXAMINATION: XR CHEST AP OR PA 1 VIEWPRO 06/25/2025 02:16 PM CLINICAL HISTORY: Pacemaker lead placement assessment ASSOCIATED DIAGNOSIS: Pacemaker lead placement assessment ORDERING PROVIDER: [facility] NOTE: COMPARISON: None FINDINGS: Position and projection: AP erect. Limitations: None. Clinical considerations: Obtained from EMR. Lines, tubes, and devices: Left chest implanted dual-chamber AICD devicewith its lead terminating overlying the regions of the right atrialappendage and right ventricle. Intact AICD leads which make contact withits generator terminals. Cardiomediastinal silhouette: Upper limits normal heart size. Aorta: Atherosclerotic calcification. Lungs and pleura: Left basilar pulmonary patchy airspaceopacities/atelectasis and mild right basilar pulmonary subsegmentalatelectasis. No sizable pleural effusion or pneumothorax. Osseous structures: Unremarkable. Chest and abdominal wall: Unremarkable. Included upper abdomen: Right upper quadrant surgical clips, likelyrelated to a cholecystectomy. IMPRESSION: 1. Dual-chamber AICD device with satisfactory positions of its leads. 2. Left basilar pulmonary patchy airspace opacities/atelectasis and mildright basilar pulmonary subsegmental atelectasis. Pneumonia should beexcluded clinically. MACRO: None Authorizing ProviderResult TypeResult StatusDelight [facility] MDEC DIAGNOSTIC X- RAY 2Final Result * (ABNORMAL) GLUCOSE, FINGERSTICK-IN OFFICE (06/25/2025 12:06 PM EST)Component ValueRef RangeTest MethodAnalysis TimePerformed AtPathologist Signature Glucose, ESW914(H)74 - 109 mg/dL06/25/2025 12:13 PM ESTNURSING GLUCOSE PROGRAM Specimen (Source)Anatomical Location / LateralityCollection Method / Volume Collection TimeReceived TimeBloodBLOOD SPECIMEN / Dboraqs5306/25/2025 12:06 PM EST06/25/2025 12:13 PM EST Narrative Authorizing ProviderResult TypeResult StatusTo Be AssignedEC BACK OFFICE LABS Final ResultPerforming OrganizationAddressCity/State/ZIP CodePhone Number NURSING GLUCOSE PROGRAM [address] [place] [phone] * (ABNORMAL) GLUCOSE, FINGERSTICK-IN OFFICE (06/25/2025 7:46 AM EST)Component ValueRef RangeTest MethodAnalysis TimePerformed AtPathologist Signature Glucose, XGF899(H)74 - 109 mg/dL06/25/2025 7:56 AM ESTNURSING GLUCOSE PROGRAM Specimen (Source)Anatomical Location / LateralityCollection Method / Volume Collection TimeReceived TimeBloodBLOOD SPECIMEN / Etineey0406/25/2025 7:46 AM EST06/25/2025 7:56 AM EST Narrative Authorizing ProviderResult TypeResult StatusTo Be AssignedEC BACK OFFICE LABS Final ResultPerforming OrganizationAddressCity/State/ZIP CodePhone Number NURSING GLUCOSE PROGRAM [address] [place] [phone] * (ABNORMAL) GLUCOSE, FINGERSTICK-IN OFFICE (06/24/2025 9:32 PM EST)Component ValueRef RangeTest MethodAnalysis TimePerformed AtPathologist Signature Glucose, SZX735(H)74 - 109 mg/dL06/24/2025 9:38 PM ESTNURSING GLUCOSE PROGRAM Specimen (Source)Anatomical Location / LateralityCollection Method / Volume Collection TimeReceived TimeBloodBLOOD SPECIMEN / Prypukx4106/24/2025 9:32 PM EST06/24/2025 9:38 PM EST Narrative Authorizing ProviderResult TypeResult StatusSudarshan ESPARZA BACK OFFICE LABSFinal ResultPerforming OrganizationAddressCity/State/ZIP CodePhone Number NURSING GLUCOSE PROGRAM [address] [place] [address] * (ABNORMAL) CBC WITH DIFFERENTIAL (06/24/2025 8:52 PM EST)ComponentValueRef RangeTest MethodAnalysis TimePerformed AtPathologist SignatureWBC9.84.5 - 11.5 K/uL06/24/2025 9:18 PM [facility] PATH[facility] LABORATORYRBC4.00(L)4.50 - 5.90 M/uL 06/24/2025 9:18 PM [facility] JLTFYDPYMCQhtzdwgqsr47.4(L)13.9 - 16.3 g/dL06/24/2025 9:18 PM [facility] DPLZHXUBZYMywejwknmj14.0(L)41.0 - 53.0 %06/24/2025 9:18 PM [facility] MGLEJVRCCTCBS0791 - 100 fL06/24/2025 9:18 PM [facility] PBQYSQSMLDHVP52.026.0 - 34.0 pg06/24/2025 9:18 PM EST [facility] NMKXWODWRIKDLN73.532.0 - 35.9 g/dL06/24/2025 9:18 PM [facility] VJTNWYRIYXGixxhbkw923(H)150 - 400 K/uL06/24/2025 9:18 PM [facility] PATH[facility] LABORATORYRDW-CV15.9(H)11.5 - 14.5 %06/24/2025 9:18 PM [facility] DSISFGWQYOIZB28.47.5 - 11.2 fL06/24/2025 9:18 PM [facility] FBFZOYVVPENgxdryfdeiv13.0(H)31.0 - 76.0 %06/24/2025 9:18 PM [facility] PATH[facility] LABORATORYNeutrophil #7.831.50 - 8.00 K/uL06/24/2025 9:18 PM [facility] MEMUFAHCNLEqrnsigubnw28.1(L)24.0 - 44.0 %06/24/2025 9:18 PM [facility] PATH[facility] LABORATORYLymphocytes #0.99(L)1.00 - 4.80 K/uL06/24/2025 9:18 PM [facility] PATH[facility] LABORATORYMonocytes7.22.0 - 11.0 %06/24/2025 9:18 PM [facility] PATH[facility] LABORATORYMonocyte #0.700.20 - 1.00 K/06/24/2025 9:18 PM [facility] PATH[facility] LABORATORYEosinophil1.40.1 - 4.0 %06/24/2025 9:18 PM [facility] PATH[facility] LABORATORYEosinophil #0.130.00 - 0.70 K/06/24/2025 9:18 PM [facility] LABORATORYBasophils1.4<=1.9 %06/24/2025 9:18 PM [facility] PATH[facility] LABORATORYBasophil #0.140.00 - 0.20 /06/24/2025 9:18 PM [facility] PATH[facility] LABORATORYSpecimen (Source)Anatomical Location / LateralityCollection Method / VolumeCollection TimeReceived TimeBloodBLOOD SPECIMEN / UnknownVenipuncture / Kgdjbqq4806/24/2025 8:52 PM EST06/24/2025 9:11 PM EST Narrative Authorizing ProviderResult TypeResult StatusGhassan Rachell ESPARZA LAB ORDER ONLY Final ResultPerforming OrganizationAddressCity/State/ZIP CodePhone Number [facility] [address] [place] [phone] * TYPE AND SCREEN (06/24/2025 8:52 PM EST)ComponentValueRef RangeTest Method Analysis TimePerformed AtPathologist SignatureABO Rh TypeA Gpancsux17/14/2025 9:52 PM [facility] PATH[facility] LABORATORYAb Screen YxgnksMqjjjpse90/14/2025 9:52 PM [facility] PATH[facility] LABORATORYSpecimen Expiration [id number]/14/2025 9:52 PM [facility] PATHOLOG[facility] LABORATORYABO Rh/Blanca/TXRX HistoryNo Previous Results 06/24/2025 9:52 PM [facility] PATH[facility] LABORATORYSpecimen (Source)Anatomical Location / LateralityCollection Method / VolumeCollection TimeReceived Time BloodBLOOD SPECIMEN / UnknownVenipuncture / Cshxcgv8206/24/2025 8:52 PM EST 06/24/2025 9:10 PM EST Narrative Authorizing ProviderResult TypeResult StatusSudarshan ESPARZA BLOOD BANKFinal ResultPerforming OrganizationAddressCity/State/ZIP CodePhone Number [facility] [address] [place] [phone] * BLOOD CULTURE (06/24/2025 8:52 PM EST)ComponentValueRef RangeTest Method Analysis TimePerformed AtPathologist SignatureBlood CultureNo Tutmxb1406/29/2025 10:01 PM [facility] PATHOLOGY LABORATORYSpecimen (Source)Anatomical Location / LateralityCollection Method / VolumeCollection TimeReceived TimeBlood PERIPHERAL BLOOD SPECIMEN / UnknownVenipuncture / Noapadx5506/24/2025 8:52 PM EST06/24/2025 9:01 PM EST Narrative [facility] - 06/29/2025 10:01 PM EST The results may be compromised due to inadequate volume of fluid received. A negative result does not rule out an infectious process. Authorizing ProviderResult TypeResult StatusSudarshan ESPARZA MICROBIOLOGY Final ResultPerforming OrganizationAddressCity/State/ZIP CodePhone Number [facility] [address] [place] [phone] * (ABNORMAL) BLOOD CULTURE (06/24/2025 8:52 PM EST)ComponentValueRef RangeTest MethodAnalysis TimePerformed AtPathologist SignatureBlood CulturePositive Culture Report(A)06/30/2025 2:33 PM [facility] PATH[facility] LABORATORYBlood Culture Anaerobic bottle yields Staphylococcus aureus DORON 06/30/2025 2:33 PM [facility] PATHOLOGY LABORATORYComment:Identification by nucleic acid based testingGram StainAnaerobic bottle yields Gram Positive Cocci In Cjmavfap31/20/2025 2:33 PM [facility] PATHOLOGY LABORATORYSpecimen (Source) Anatomical Location / LateralityCollection Method / VolumeCollection Time Received TimeBloodPERIPHERAL BLOOD SPECIMEN / UnknownVenipuncture / Unknown 06/24/2025 8:52 PM EST06/24/2025 9:02 PM EST Narrative OrganismAntibioticMethodSusceptibilityStaphylococcus aureusDaptomycinMIC 0.25 DORON: Sensitive Staphylococcus aureusLinezolidMIC 2 DORON: Sensitive Staphylococcus aureusOxacillinMIC <=0.25 DORON: Sensitive Staphylococcus aureusTrimethoprim + SulfamethoxazoleMIC <=10 DORON: Sensitive Staphylococcus aureusVancomycinMIC 1 DORON: Sensitive Authorizing ProviderResult TypeResult StatusGhdonnie ESPARZA MICROBIOLOGY Final ResultPerforming OrganizationAddressCity/State/ZIP CodePhone Number [facility] [address] [place] [phone] * (ABNORMAL) BASIC METABOLIC PANEL (06/24/2025 8:52 PM EST)ComponentValueRef RangeTest MethodAnalysis TimePerformed AtPathologist BxavhwfmwLjtyqjx542(H)74 - 109 mg/dL06/24/2025 9:40 PM [facility] UFBTSKTXDXPosoca853(L)136 - 145 mmol/L108/25/2024 9:40 PM [facility] PATH[facility] LABORATORYPotassium4.83.5 - 5.0 mmol/L108/25/2024 9:40 PM [facility] PATH[facility] LABORATORYCarbon Sfichht0823 - 31 mmol/L108/25/2024 9:40 PM [facility] FAVQLMDUROXsuksref48605 - 107 mmol/L 06/24/2025 9:40 PM [facility] PATH[facility]Y LABORATORYBlood Urea Imnvhrvs540 - 25 mg/dL06/24/2025 9:40 PM [facility] PATH[facility] LABORATORYCreatinine1.150.70 - 1.30 mg/dL06/24/2025 9:40 PM [facility] PATH[facility] LABORATORYCalcium8.0(L)8.6 - 10.3 mg/dL06/24/2025 9:40 PM [facility] PATH[facility] LABORATORYAnion Vuu2573 - 20 06/24/2025 9:40 PM [facility] PATHOLOGY LABORATORYEstimated GFR (CKD-EPI)61>=60 mL/min/1.52xjg0308/25/2024 9:40 PM [facility] PATHOLOGY LABORATORYComment: 2020 CKD EPI Equation using Creatinine without Race Comment: ??Estimated glomerular filtration rate (eGFR) is calculated without a race coefficient. Values should be interpreted in the context of the patient's full clinical presentation. Reference: 1. Tellez C, Shirley M, Rossana GUNDERSON, et al.. A Unifying Approach for GFR Estimation: Recommendations of the NKF-ASN Task Force on Reassessing the Inclusion of Race in Diagnosing Kidney Disease. AmericanJournal of Kidney Diseases 2021;79(2):268-88.e1. 2. N Engl J Med 1 Vol. 385 Issue 19 Pages 5366-3048 Specimen (Source)Anatomical Location / LateralityCollection Method / Volume Collection TimeReceived TimeBloodBLOOD SPECIMEN / UnknownVenipuncture / Unknown 06/24/2025 8:52 PM EST06/24/2025 9:11 PM EST Narrative Authorizing ProviderResult TypeResult StatusSudarshan Lovett MD98 GENERAL LAB Final ResultPerforming OrganizationAddressCity/State/[facility] CodePhone Number [facility] [address] [place] [phone] documented in this encounter Visit Diagnoses Diagnosis MSSA bacteremia- Primary MSSA bacteremia Acute midline low back pain without sciatica [M54.50] Coronary artery disease involving [place] coronary artery of [place] heart without angina pectoris [I25.10] Essential hypertension [I10] Unspecified essential hypertension Gastroesophageal reflux disease, unspecified whether esophagitis present [K21.9] HFrEF (heart failure with reduced ejection fraction) [I50.20] 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] Hyperlipidemia, unspecified hyperlipidemia type [E78.5] Postoperative urinary retention [N99.89, R33.8] 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] S/P TURP (transurethral resection of prostate) [Z90.79] Other postprocedural status Stage 3a chronic kidney disease (HCC) [N18.31] Type 1 diabetes mellitus with hyperglycemia (HCC) [E10.65] Type I (juvenile type) diabetes mellitus without mention of complication, not stated as uncontrolled Anemia, unspecified type ICD (implantable cardioverter-defibrillator) in place Anemia due to other cause, not classified Closed wedge compression fracture of T10 vertebra, initial encounter ([facility]) CAD (coronary artery disease) Coronary atherosclerosis of unspecified type of vessel, [place] or graft HFrEF (heart failure with reduced ejection fraction) Presence of implantable cardioverter-defibrillator (ICD) Stage 3 chronic kidney disease (HCC) S/P TURP (transurethral resection of prostate) Other postprocedural status Essential hypertension Unspecified essential hypertension Hyperlipidemia Other and unspecified hyperlipidemia Type 1 diabetes mellitus with hyperglycemia (HCC) Type I (juvenile type) diabetes mellitus without mention of complication, not stated as uncontrolled 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 GERD (gastroesophageal reflux disease) Esophageal reflux Acute midline low back pain without sciatica Postoperative urinary retention Anemia Anemia, unspecified Left arm swelling documented in this encounter Administered Medications Medication OrderMAR ActionAction DateDoseRateSite acetaminophen (TYLENOL) tablet 1,000 mg, Oral, THREE TIMES DAILY 0900, 1300, 1700, First dose on Wed06/24/25 at 1930, Until Discontinued Given07/03/2025 12:56 PM EST1,000 noIxaex7607/03/2025 8:43 AM EST1,000 mgGiven 07/02/2025 5:03 PM EST1,000 mg wwlfsug-tgaihz-dehsblsd (CREON) 28547 units capsule 48,000 Units, Oral, 3 TIMES DAILY WITH MEALS, First dose on Wed06/25/25 at 0800, Until Discontinued Given06/25/2025 12:10 PM EST48,000 UlyftJnwdk52/15/2025 8:12 AM EST48,000 Units utgdeie-wsmwnu-rxhgmesy (CREON) 77143 units capsule 24,000 Units, Oral, 3 TIMES DAILY WITH MEALS, First dose (after last modification) on Wed06/26/25 at 0800, Until Discontinued Given07/03/2025 12:56 PM EST24,000 DhclaDppdv95/23/2025 8:43 AM EST24,000 Units Given07/02/2025 6:44 PM EST24,000 Units aspirin EC tablet 81 mg, Oral, DAILY, First dose on Wed06/25/25 at 0900, Until Discontinued Given06/27/2025 8:33 AM EST81 spErhrc0106/26/2025 9:18 AM EST81 knFuamm8206/25/2025 8:12 AM EST81 mg atorvastatin (LIPITOR) tablet 40 mg, Oral, AT BEDTIME, First dose on Wed06/24/25 at 2200, Until Discontinued Given07/02/2025 9:44 PM EST40 xdIlqiw5807/01/2025 10:20 PM EST40 xmYavih6906/30/2025 9:10 PM EST40 mg ceFAZolin Sodium (ANCEF) 2,000 mg in sodium chloride 0.9 % 100 mL (V2B) 2,000 mg, Intravenous, ONCE, 1 dose, On Wed06/24/25 at 2030, at 200 mL/hr, Administer over 30 Minutes IV 06/24/2025 9:41 PM EST2,000 mg200 mL/hr ceFAZolin Sodium (ANCEF) 2,000 mg in sodium chloride 0.9 % 100 mL (V2B) 2,000 mg, Intravenous, EVERY 8 HOURS ANTIBIOTIC, First dose on Wed06/25/25 at 0600, Until Discontinued, at 200 mL/hr, Administer over 30 Minutes IV 07/03/2025 12:56 PM EST2,000 mg200 mL/hrIV 07/03/2025 6:27 AM EST2,000 mg200 mL/hrIV 07/02/2025 10:44 PM EST2,000 mg200 mL/hr dextrose (GLUTOSE) 40 % oral gel 15 g of glucose, Buccal, PRN, Starting on Wed06/24/25 at 1859, Until Wed07/03/25 at 1821, blood glucose between 50 - 69 mg/dL, and with no IV access, alert and able to swallow. Indications:Hypoglycemia dextrose (GLUTOSE) 40 % oral gel 30 g of glucose, Buccal, PRN, Starting on Wed06/24/25 at 1859, Until Wed07/03/25 at 1821, blood glucose of 49mg/dL or less, and with no IV access, alert and able to swallow. Indications:Hypoglycemia dextrose 10 % iv infusion 125 mL (12.5 g), Intravenous, at 999 mL/hr, PRN, Starting on Wed06/24/25 at 1859, Until Wed07/03/25 at 182, For blood glucose less than 70 mg/dL, with IV access and with loss of consciousness or unable to swallow or NPO IV 06/29/2025 11:28 AM QAN772 mL999 mL/hrIV 06/29/2025 5:23 AM EST 125 mL999 mL/hr dextrose 10 % iv infusion 125 mL (12.5 g), at 9,999 mL/hr, Intravenous, ONCE, 1 dose, On Wed06/29/25 at 1630 IV New Bag06/29/2025 6:39 PM YMC964 bY0217 mL/hr dextrose 5 % and lactated ringers iv infusion Intravenous, at 100 mL/hr, CONTINUOUS, Starting on Wed06/29/25 at 0700, Until Wed06/29/25 at 1307 IV Rate Rpedbq8606/29/2025 11:36 AM YCI562 mL/hrIV New Bag06/29/2025 7:08 AM EST50 mL/hr dextrose 50 % injection 12.5 g, Intravenous, ONCE, 1 dose, On Wed06/29/25 at 1700, Pre-op Given06/29/2025 4:03 PM EST12.5 g docusate sodium (COLACE) capsule 100 mg, Oral, DAILY PRN, Starting on Wed06/24/25 at 1830, Until Wed07/03/25 at 1821, Constipation enoxaparin (LOVENOX) 40 MG/0.4ML injection 40 mg 40 mg, Subcutaneous, 2 TIMES DAILY, First dose on Wed06/24/25 at 1830, Until Discontinued Given06/24/2025 6:24 PM EST40 mgRight Arm enoxaparin (LOVENOX) 40 MG/0.4ML injection 40 mg 40 mg, Subcutaneous, DAILY, First dose on Wed06/24/25 at 1930, Until Discontinued Given07/01/2025 9:29 AM EST40 mgAbdominal HlzqyvSyoim41/20/2025 9:09 AM EST40 mg Left lower quadrant zmhbyqxOotad56/18/2025 9:48 AM EST40 mgRight Arm enoxaparin (LOVENOX) 40 MG/0.4ML injection 40 mg 40 mg, Subcutaneous, DAILY, First dose (after last modification) on Wed07/03/25 at 0900, Until Discontinued Given07/03/2025 8:43 AM EST40 mgRight Arm ertapenem (INVANZ) 1,000 mg in sodium chloride 0.9 % 100 mL V2B 1,000 mg, Intravenous, EVERY 24 HOURS ANTIBIOTIC, First dose on Taty 06/28/25 at 1230, Until Discontinued, at 200 mL/hr, Administer over 30 Minutes IV New Bag07/03/2025 8:49 AM EST1,000 mg200 mL/hrIV New 07/02/2025 12:09 PM EST1,000 mg200 mL/hrIV New 07/01/2025 9:41 AM EST1,000 mg200 mL/hr fentaNYL (SUBLIMAZE) 100 MCG/2ML injection Intravenous, ONCE PRN, Starting on Wed07/02/25 at 0931, Until Wed07/02/25 at 0931 Given07/02/2025 9:31 AM EST25 mcg ferrous sulfate 325 mg (65 mg elemental) tablet 325 mg, Oral, 2 TIMES DAILY BEFORE MEALS, First dose on Wed06/25/25 at 0800, Until Discontinued Given07/03/2025 8:43 AM WCH449 lmThxim6007/02/2025 5:03 PM MQM520 mgGiven 07/02/2025 12:11 PM DEU818 mg Gadoterate Meglumine (DOTAREM) 10 MMOL/20ML solution 20 mL, Intravenous, Once at Radiology exam, 1 dose, Starting on Wed06/27/25 at 1458, Until Wed06/27/25 at 1348, Imaging Protocol Orders Given06/27/2025 1:48 PM EST12 mL glucagon (GLUCAGEN) 1 MG injection 1 mg, Subcutaneous, PRN, Starting on Wed06/24/25 at 1859, Until Wed07/03/25 at 1821, For blood glucose less than 70 mg/dL and with no IV access with loss of consciousness or alert and unable to swallow. Indications:Hypoglycemia HYDROmorphone (DILAUDID) 1 mg/mL injection 0.2 mg, Intravenous, EVERY 4 HOURS PRN, Starting on Wed06/26/25 at 1018, Until Wed06/28/25 at 1017, Breakthrough Pain, Severe Pain (pain score 7,8,9,10) Given06/26/2025 11:10 AM EST0.2 mg HYDROmorphone (DILAUDID) 1 mg/mL injection 0.2 mg, Intravenous, EVERY 6 HOURS PRN, Starting on Wed06/29/25 at 0828, Until Wed07/01/25 at 0827, Breakthrough Pain Given06/30/2025 10:39 AM EST0.2 mg insulin glargine (LANTUS) 100 UNIT/ML injection 15 Units, Subcutaneous, AT BEDTIME, First dose on Wed06/24/25 at 2300, Until Discontinued Given06/25/2025 10:38 PM EST15 UnitsAbdominal CrilzfIwexf58/14/2025 11:00 PM EST 15 UnitsAbdominal Tissue insulin glargine (LANTUS) 100 UNIT/ML injection 10 Units, Subcutaneous, AT BEDTIME, First dose (after last modification) on Wed06/26/25 at 2200, Until Discontinued Given06/26/2025 9:52 PM EST10 UnitsAbdominal Tissue insulin glargine (LANTUS) 100 UNIT/ML injection 13 Units, Subcutaneous, AT BEDTIME, First dose (after last modification) on Wed06/27/25 at 2200, Until Discontinued Given06/27/2025 9:42 PM EST13 UnitsAbdominal Tissue insulin glargine (LANTUS) 100 UNIT/ML injection 15 Units, Subcutaneous, AT BEDTIME, First dose (after last modification) on Wed06/28/25 at 2200, Until Discontinued Given06/28/2025 9:49 PM EST15 UnitsAbdominal Tissue insulin glargine (LANTUS) 100 UNIT/ML injection 8 Units, Subcutaneous, AT BEDTIME, First dose (after last modification) on Wed06/29/25 at 2200, Until Discontinued Given06/30/2025 9:10 PM EST8 UnitsAbdominal MknslyZncdy73/19/2025 10:00 PM EST8 UnitsAbdominal Tissue insulin glargine (LANTUS) 100 UNIT/ML injection 8 Units, Subcutaneous, AT BEDTIME, First dose (after last modification) on Wed07/01/25 at 2200, Until Discontinued Given07/01/2025 10:21 PM EST8 UnitsAbdominal Tissue insulin glargine (LANTUS) 100 UNIT/ML injection 15 Units, Subcutaneous, AT BEDTIME, First dose (after last modification) on Wed07/02/25 at 2200, Until Discontinued Given07/02/2025 10:38 PM EST15 UnitsAbdominal Tissue insulin lispro (HumaLOG) 100 UNIT/ML injection 1-6 Units, Subcutaneous, 3 TIMES DAILY BEFORE MEALS, First dose on Wed06/25/25 at 0800, Until Discontinued Given07/02/2025 5:02 PM EST4 UnitsAbdominal QkoenpPuzgb85/22/2025 12:28 PM EST2 UnitsAbdominal WulkogDjktn23/21/2025 5:47 PM EST4 UnitsAbdominal Tissue insulin lispro (HumaLOG) 100 UNIT/ML injection 6 Units, Subcutaneous, ONCE, 1 dose, On Wed06/24/25 at 2300 Given06/24/2025 11:18 PM EST6 UnitsAbdominal Tissue insulin lispro (HumaLOG) 100 UNIT/ML injection 4 Units, Subcutaneous, ONCE, 1 dose, On Wed06/25/25 at 2300 Given06/25/2025 10:38 PM EST4 UnitsRight Arm insulin lispro (HumaLOG) 100 UNIT/ML injection 2 Units, Subcutaneous, 3 TIMES DAILY BEFORE MEALS, First dose on Wed07/01/25 at 1200, Until Discontinued Given07/01/2025 5:46 PM EST2 UnitsAbdominal PhtjgpVcyak11/21/2025 1:04 PM EST2 UnitsAbdominal Tissue insulin lispro (HumaLOG) 100 UNIT/ML injection 7 Units, Subcutaneous, ONCE, 1 dose, On Wed07/01/25 at 2300 Given07/01/2025 10:23 PM EST7 UnitsAbdominal Tissue insulin lispro (HumaLOG) 100 UNIT/ML injection 6 Units, Subcutaneous, ONCE, 1 dose, On Wed07/02/25 at 0200 Given07/02/2025 1:50 AM EST6 UnitsRight lower quadrant abdomen insulin lispro (HumaLOG) 100 UNIT/ML injection 5 Units, Subcutaneous, 3 TIMES DAILY BEFORE MEALS, First dose (after last modification) on Wed07/02/25 at 1700, Until Discontinued Given07/03/2025 12:55 PM EST5 UnitsRight RqiNtuiu84/23/2025 8:43 AM EST5 Units Right CurRjidl20/22/2025 5:02 PM EST5 UnitsAbdominal Tissue lidocaine (LIDODERM) 4 % patch 1 Patch, Transdermal, EVERY 24 HOURS, First dose on Wed06/24/25 at 2030, Until Discontinued Patch Hmqrjwz8707/02/2025 9:42 PM EST1 PatchBackPatch Kufduwg8606/30/2025 9:10 PM EST1 PatchPatch Wcjlmaw8206/29/2025 9:23 PM EST1 Patch lidocaine (XYLOCAINE) 4 % external solution Topical, ONCE PRN, Starting on Wed07/02/25 at 0931, Until Wed07/02/25 at 0931 Given07/02/2025 9:31 AM EST7 mL lidocaine viscous 2 % solution ONCE PRN, Starting on Wed07/02/25 at 0931, Until Wed07/02/25 at 0931 Given07/02/2025 9:31 AM EST15 mL LORazepam (ATIVAN) 2 MG/ML injection 0.5 mg, Intravenous, ONCE PRN, 1 dose, Starting on Wed06/25/25 at 1454, Until Wed06/27/25 at 1129, Sedation, Anxiety, give prior to MRI Given06/27/2025 11:29 AM EST0.5 mg losartan (COZAAR) tablet 25 mg, Oral, DAILY, First dose on Wed06/25/25 at 0900, Until Discontinued Given07/03/2025 10:06 AM EST25 noUwijz9907/02/2025 12:11 PM EST25 mgGiven 07/01/2025 9:28 AM EST25 mg melatonin tablet 3 mg, Oral, AT BEDTIME PRN, Starting on Wed06/24/25 at 1830, Until Wed07/03/25 at 1821, Sleep Given07/02/2025 9:44 PM EST3 kyCbtaa0406/29/2025 9:24 PM EST3 gxZjbqa7506/28/2025 9:44 PM EST3 mg metoprolol (TOPROL-XL) 24 hour tablet 12.5 mg, Oral, AT BEDTIME, First dose on Wed06/24/25 at 2200, Until Discontinued Given07/02/2025 9:43 PM EST12.5 lxYsvnl7807/01/2025 10:20 PM EST12.5 mgGiven 06/30/2025 9:10 PM EST12.5 mg midazolam (VERSED) 2 MG/2ML injection Intravenous, ONCE PRN, Starting on Wed07/02/25 at 0930, Until Wed07/02/25 at 0930 Given07/02/2025 9:30 AM EST1 mg ondansetron (ZOFRAN) 4 MG/2ML injection 4 mg, Intravenous, EVERY 8 HOURS PRN, Starting on Wed06/24/25 at 1830, Until Wed07/03/25 at 1821,Nausea, Vomiting oxyCODONE immediate release tablet 5 mg, Oral, EVERY 6 HOURS PRN, Starting on Wed06/26/25 at 1018, Until Wed07/03/25 at 182, Moderate Pain (pain score 4,5,6) Given07/01/2025 5:27 AM EST5 iwLzheh2906/27/2025 3:26 PM EST5 tgZsdpa5806/26/2025 9:53 PM EST5 mg oxyCODONE immediate release tablet 7.5 mg, Oral, EVERY 4 HOURS PRN, Starting on Wed06/27/25 at 1002, Until Wed07/03/25 at 182, Severe Pain (pain score 7,8,9,10) Given07/03/2025 10:37 AM EST7.5 ekWdobb0207/03/2025 6:28 AM EST7.5 mgGiven 07/01/2025 11:38 PM EST7.5 mg pantoprazole (PROTONIX) injection 40 mg, Intravenous, 2 TIMES DAILY, First dose on Wed06/29/25 at 0930, Until Discontinued, Administer over 2 Minutes Given06/29/2025 10:31 AM EST40 mg PARoxetine (PAXIL) tablet 40 mg, Oral, DAILY, First dose on Wed06/25/25 at 0900, Until Discontinued Given07/03/2025 10:06 AM EST40 xuTkthq4007/02/2025 12:11 PM EST40 mgGiven 07/01/2025 9:28 AM EST40 mg phytonadione (VITAMIN K) 10 mg in sodium chloride 0.9 % 100 mL ivpb 10 mg, Intravenous, ONCE, 1 dose, On Wed06/29/25 at 0930, Administer over 15 Minutes IV New Bag06/29/2025 1:13 PM EST10 mg polyethylene glycol (MIRALAX) 17 g packet 17 g, Oral, DAILY, First dose on Wed06/25/25 at 1530, Until Discontinued Given07/02/2025 12:11 PM EST17 yQlgmn5206/26/2025 9:20 AM EST17 mFtwhb4606/25/2025 2:49 PM EST17 g potassium & sodium phosphates (K-PHOS NEUTRAL) tablet 2 Tablet, Oral, Once, 1 dose, On Wed06/29/25 at 0900 Given06/29/2025 7:14 PM EST2 Tablets potassium chloride 20 mEq in SW 100 mL IVPB 20 mEq, Intravenous, ONCE, 1 dose, On Wed06/29/25 at 0700, at 50 mL/hr IV New 06/29/2025 7:10 AM EST20 mEq50 mL/hr potassium chloride 20 mEq in SW 100 mL IVPB 20 mEq, Intravenous, ONCE, 1 dose, On Wed06/29/25 at 0900, at 50 mL/hr IV 06/29/2025 10:17 AM EST20 mEq50 mL/hr senna (SENOKOT) tablet 8.6 mg, Oral, 2 times daily, First dose on Wed06/26/25 at 1100, Until Discontinued Given07/03/2025 8:43 AM EST8.6 fcAzmws3307/02/2025 9:44 PM EST8.6 mgGiven 07/02/2025 12:27 PM EST8.6 mg spironolactone (ALDACTONE) tablet 25 mg, Oral, DAILY, First dose on Wed06/25/25 at 0900, Until Discontinued Given07/03/2025 10:06 AM EST25 dhTvppf8607/02/2025 12:11 PM EST25 mgGiven 07/01/2025 9:28 AM EST25 mg tamsulosin (FLOMAX) capsule 0.4 mg, Oral, DAILY, First dose on Wed06/25/25 at 0900, Until Discontinued Given07/03/2025 8:43 AM EST0.4 xvQgecn6907/02/2025 12:11 PM EST0.4 mgGiven 07/01/2025 9:28 AM EST0.4 mgdocumented in this encounter Active and Recently Administered Medications Times are shown in EST.Medication Order/ acetaminophen (TYLENOL) tablet 1,000 mg, Oral, THREE TIMES DAILY 0900, 1300, 1700, First dose on Wed06/24/25 at 1930, Until Discontinued * 0928 (Given - Provider: Shirley Barton RN) * 1304 (Given - Provider: Shirley Barton RN) * 1746 (Given - Provider: Shirley Barton RN) * 0900 (Hold/Not Given - Provider: Lena Bello - Reason: Off of unit (test/procedure/OR)) * 1211 (Given - Provider: Lena Bello) * 1703 (Given - Provider: Lena Bello) * 0843 (Given - Provider: Ana Martell, KARIN) * 1256 (Given - Provider: Ana Martell, RN) liyhfak-lrlpzk-xlxrhrmq (CREON) 28160 units capsule 24,000 Units, Oral, 3 TIMES DAILY WITH MEALS, First dose (after last modification) on Wed06/26/25 at 0800, Until Discontinued * 0928 (Given - Provider: Shirley Barton, RN) * 1304 (Given - Provider: Shirley Barton, RN) * 1746 (Given - Provider: Shirley Barton, RN) * 0800 (Hold/Not Given - Provider: Lena Bello - Reason: NPO) * 1211 (Given - Provider: Lena Bello) * 1844 (Given - Provider: Lena eBllo) * 0843 (Given - Provider: Ana Martell, KARIN) * 1256 (Given - Provider: Ana Martell, KARIN) atorvastatin (LIPITOR) tablet 40 mg, Oral, AT BEDTIME, First dose on Wed06/24/25 at 2200, Until Discontinued * 2220 (Given - Provider: Paige Curry, KARIN) * 2144 (Given - Provider: Shannen Rich, KARIN) ceFAZolin Sodium (ANCEF) 2,000 mg in sodium chloride 0.9 % 100 mL (V2B) 2,000 mg, Intravenous, EVERY 8 HOURS ANTIBIOTIC, First dose on Wed06/25/25 at 0600, Until Discontinued, at 200 mL/hr, Administer over 30 Minutes * 0527 (IV New Bag - Provider: Hemalatha Louis, KARIN) * 1305 (IV New Bag - Provider: Shirley Barton RN) * 2220 (IV New Bag - Provider: Paige Curry, KARIN) * 0612 (IV New Bag - Provider: Cookie Boyd) * 1505 (IV New Bag - Provider: Lena Bello) * 2244 (IV New Bag - Provider: Shannen Rich, KARIN) * 0627 (IV New Bag - Provider: Shannen Rich RN) * 1256 (IV New Bag - Provider: Ana Martell, RN) enoxaparin (LOVENOX) 40 MG/0.4ML injection 40 mg (CANCELED) 40 mg, Subcutaneous, DAILY, First dose on Wed06/24/25 at 1930, Until Discontinued * 0929 (Given - Provider: Shirley Barton RN) enoxaparin (LOVENOX) 40 MG/0.4ML injection 40 mg 40 mg, Subcutaneous, DAILY, First dose (after last modification) on Wed07/03/25 at 0900, Until Discontinued * 0843 (Given - Provider: Ana Martell, RN) ertapenem (INVANZ) 1,000 mg in sodium chloride 0.9 % 100 mL V2B 1,000 mg, Intravenous, EVERY 24 HOURS ANTIBIOTIC, First dose on Wed06/28/25 at 1230, Until Discontinued, at 200 mL/hr, Administer over 30 Minutes * 0941 (IV New Bag - Provider: Shirley Barton RN) * 1000 (Hold/Not Given - Provider: Lena Bello - Reason: Off of unit (test/procedure/OR)) * 1209 (IV New Bag - Provider: Lena Bello) * 0849 (IV New Bag - Provider: Ana Martell, KARIN) ferrous sulfate 325 mg (65 mg elemental) tablet 325 mg, Oral, 2 TIMES DAILY BEFORE MEALS, First dose on Wed06/25/25 at 0800, Until Discontinued * 0928 (Given - Provider: Shirley Barton RN) * 1746 (Given - Provider: Shirley Barton RN) * 0800 (Hold/Not Given - Provider: Lena Bello - Reason: NPO) * 1211 (Given - Provider: Lena Bello) * 1703 (Given - Provider: Lena Bello) * 0843 (Given - Provider: Ana Martell, KARIN) insulin glargine (LANTUS) 100 UNIT/ML injection (CANCELED) 8 Units, Subcutaneous, AT BEDTIME, First dose (after last modification) on Wed07/01/25 at 2200, Until Discontinued * 2221 (Given - Provider: Paige Curry RN) insulin glargine (LANTUS) 100 UNIT/ML injection 15 Units, Subcutaneous, AT BEDTIME, First dose (after last modification) on Wed07/02/25 at 2200, Until Discontinued * 2238 (Given - Provider: Shannen Rich RN) insulin lispro (HumaLOG) 100 UNIT/ML injection 1-6 Units, Subcutaneous, 3 TIMES DAILY BEFORE MEALS, First dose on Wed06/25/25 at 0800, Until Discontinued * 0800 (Given - Provider: Shirley Barton RN) * 1305 (Given - Provider: Shirley Barton RN) * 1747 (Given - Provider: Shirley Barton RN) * 0800 (Hold/Not Given - Provider: Lena Bello - Reason: NPO) * 1228 (Given - Provider: Lena Bello) * 1702 (Given - Provider: Lena Bello - Comment: bs [id number]) * 0800 (Hold/Not Given - Provider: Ana Martell RN - Reason: Not indicated) * 1200 (Hold/Not Given - Provider: Ana Martell RN - Reason: Not indicated) insulin lispro (HumaLOG) 100 UNIT/ML injection (CANCELED) 2 Units, Subcutaneous, 3 TIMES DAILY BEFORE MEALS, First dose on Wed07/01/25 at 1200, Until Discontinued * 1304 (Given - Provider: Shirley Barton RN) * 1746 (Given - Provider: Shirley Barton RN) * 0800 (Hold/Not Given - Provider: Lena Bello - Reason: NPO) * 1200 (Hold/Not Given - Provider: Lena Bello - Reason: Physician order) insulin lispro (HumaLOG) 100 UNIT/ML injection (COMPLETED) 7 Units, Subcutaneous, ONCE, 1 dose, On Wed07/01/25 at 2300 * 2223 (Given - Provider: Paige Curry RN) insulin lispro (HumaLOG) 100 UNIT/ML injection (COMPLETED) 6 Units, Subcutaneous, ONCE, 1 dose, On Wed07/02/25 at 0200 * 0150 (Given - Provider: Cookie Boyd) insulin lispro (HumaLOG) 100 UNIT/ML injection 5 Units, Subcutaneous, 3 TIMES DAILY BEFORE MEALS, First dose (after last modification) on Wed07/02/25 at 1700, Until Discontinued * 1702 (Given - Provider: Lena Bello - Comment: bs 338) * 0843 (Given - Provider: Ana Martell RN) * 1255 (Given - Provider: Ana Martell, KARIN) lidocaine (LIDODERM) 4 % patch 1 Patch, Transdermal, EVERY 24 HOURS, First dose on Wed06/24/25 at 2030, Until Discontinued * 0929 (Patch Removal - Provider: Shirley Barton RN) * 222 (Hold/Not Given - Provider: Paige Curry RN - Reason: Patient refused) * 214 (Patch Applied - Provider: Shannen Rich RN) * 0853 (Patch Removal - Provider: Ana Martell RN) losartan (COZAAR) tablet 25 mg, Oral, DAILY, First dose on Wed06/25/25 at 0900, Until Discontinued * 0928 (Given - Provider: Shirley Barton RN) * 0900 (Hold/Not Given - Provider: Lena Bello - Reason: Off of unit (test/procedure/OR)) * 1211 (Given - Provider: Lena Bello) * 1006 (Given - Provider: Ana Martell RN) metoprolol (TOPROL-XL) 24 hour tablet 12.5 mg, Oral, AT BEDTIME, First dose on Wed06/24/25 at 2200, Until Discontinued * 222 (Given - Provider: Paige Curry, KARIN) * 214 (Given - Provider: Shannen Rich, KARIN) PARoxetine (PAXIL) tablet 40 mg, Oral, DAILY, First dose on Wed06/25/25 at 0900, Until Discontinued * 0928 (Given - Provider: Shirley Barton RN) * 0900 (Hold/Not Given - Provider: Lena Bello - Reason: Off of unit (test/procedure/OR)) * 1211 (Given - Provider: Lena Bello) * 1006 (Given - Provider: Ana Martell, KARIN) polyethylene glycol (MIRALAX) 17 g packet 17 g, Oral, DAILY, First dose on Wed06/25/25 at 1530, Until Discontinued * 0900 (Hold/Not Given - Provider: Shirley Barton RN - Reason: Patient refused) * 0900 (Hold/Not Given - Provider: Lena Bello - Reason: Off of unit (test/procedure/OR)) * 1211 (Given - Provider: Lena Bello) * 0843 (Hold/Not Given - Provider: Ana Martell, RN - Reason: Patient refused) senna (SENOKOT) tablet 8.6 mg, Oral, 2 times daily, First dose on Wed06/26/25 at 1100, Until Discontinued * 0928 (Given - Provider: Shirley Barton RN) * 2220 (Given - Provider: Paige Curry RN) * 0900 (Hold/Not Given - Provider: Lena Bello - Reason: Off of unit (test/procedure/OR)) * 1227 (Given - Provider: Lena Bello) * 2144 (Given - Provider: Shannen Rich RN) * 0843 (Given - Provider: Ana Martell, KARIN) spironolactone (ALDACTONE) tablet 25 mg, Oral, DAILY, First dose on Wed06/25/25 at 0900, Until Discontinued * 0928 (Given - Provider: Shirley Barton RN) * 0900 (Hold/Not Given - Provider: Lena Bello - Reason: Off of unit (test/procedure/OR)) * 1211 (Given - Provider: Lena Bello) * 1006 (Given - Provider: Ana Martell, KARIN) tamsulosin (FLOMAX) capsule 0.4 mg, Oral, DAILY, First dose on Wed06/25/25 at 0900, Until Discontinued * 0928 (Given - Provider: Shirley Barton RN) * 0900 (Hold/Not Given - Provider: Lena Bello - Reason: Off of unit (test/procedure/OR)) * 1211 (Given - Provider: Lena Bello) * 0843 (Given - Provider: Ana Martell, KARIN) Medication Order07/01/[id number]// dextrose (GLUTOSE) 40 % oral gel(Linked Group 1) 15 g of glucose, Buccal, PRN, Starting on Wed06/24/25 at 1859, Until Wed07/03/25 at 182, blood glucose between 50 - 69 mg/dL, and with no IV access, alert and able to swallow. dextrose (GLUTOSE) 40 % oral gel(Linked Group 1) 30 g of glucose, Buccal, PRN, Starting on Wed06/24/25 at 1859, Until Wed07/03/25 at 182, blood glucose of 49mg/dL or less, and with no IV access, alert and able to swallow. dextrose 10 % iv infusion(Linked Group 1) 125 mL (12.5 g), Intravenous, at 999 mL/hr, PRN, Starting on Wed06/24/25 at 1859, Until Wed07/03/25 at 182, For blood glucose less than 70 mg/dL, with IV access and with loss of consciousness or unable to swallow or NPO docusate sodium (COLACE) capsule 100 mg, Oral, DAILY PRN, Starting on Wed06/24/25 at 1830, Until Wed07/03/25 at 182, Constipation fentaNYL (SUBLIMAZE) 100 MCG/2ML injection (COMPLETED) Intravenous, ONCE PRN, Starting on Wed07/02/25 at 0931, Until Wed07/02/25 at 0931 * 09 (Given - Provider: Davi Clark RN) glucagon (GLUCAGEN) 1 MG injection(Linked Group 1) 1 mg, Subcutaneous, PRN, Starting on Wed06/24/25 at 1859, Until Wed07/03/25 at 182, For blood glucose less than 70 mg/dL and with no IV access with loss of consciousness or alert and unable to swallow. lidocaine (XYLOCAINE) 4 % external solution (COMPLETED) Topical, ONCE PRN, Starting on Wed07/02/25 at 0931, Until Wed07/02/25 at 0931 * 0931 (Given - Provider: Anam Dominguez MD) lidocaine viscous 2 % solution (COMPLETED) ONCE PRN, Starting on Wed07/02/25 at 0931, Until Wed07/02/25 at 0931 * 0931 (Given - Provider: Anam Dominguez MD) melatonin tablet 3 mg, Oral, AT BEDTIME PRN, Starting on Wed06/24/25 at 1830, Until Wed07/03/25 at 1821, Sleep * 2144 (Given - Provider: Shannen Rich, KARIN) midazolam (VERSED) 2 MG/2ML injection (COMPLETED) Intravenous, ONCE PRN, Starting on Wed07/02/25 at 0930, Until Wed07/02/25 at 0930 * 0930 (Given - Provider: Davi Clark RN) ondansetron (ZOFRAN) 4 MG/2ML injection 4 mg, Intravenous, EVERY 8 HOURS PRN, Starting on Wed06/24/25 at 1830, Until Wed07/03/25 at 1821,Nausea, Vomiting oxyCODONE immediate release tablet 5 mg, Oral, EVERY 6 HOURS PRN, Starting on Wed06/26/25 at 1018, Until Wed07/03/25 at 1821, Moderate Pain (pain score 4,5,6) * 0527 (Given - Provider: Hemalatha Louis RN) oxyCODONE immediate release tablet 7.5 mg, Oral, EVERY 4 HOURS PRN, Starting on Wed06/27/25 at 1002, Until Wed07/03/25 at 1821, Severe Pain (pain score 7,8,9,10) * 2338 (Given - Provider: Paige Curry RN) * 0628 (Given - Provider: Shannen Rich, KARIN) * 1037 (Given - Provider: Ana Martell RN) Order Group 1: dextrose 10 % iv infusionJump to med 125 mL (12.5 g), Intravenous, at 999 mL/hr, PRN, Starting on Wed06/24/25 at 1859, Until Wed07/03/25 at 1821, For blood glucose less than 70 mg/dL, with IV access and with loss of consciousness or unable to swallow or NPO Or glucagon (GLUCAGEN) 1 MG injectionJump to med 1 mg, Subcutaneous, PRN, Starting on Wed06/24/25 at 1859, Until Wed07/03/25 at 1821, For blood glucose less than 70 mg/dL and with no IV access with loss of consciousness or alert and unable to swallow. Or dextrose (GLUTOSE) 40 % oral gelJump to med 15 g of glucose, Buccal, PRN, Starting on Wed06/24/25 at 1859, Until Wed07/03/25 at 182, blood glucose between 50 - 69 mg/dL, and with no IV access, alert and able to swallow. Or dextrose (GLUTOSE) 40 % oral gelJump to med 30 g of glucose, Buccal, PRN, Starting on Wed06/24/25 at 1859, Until Wed07/03/25 at 1820, blood glucose of 49mg/dL or less, and with no IV access, alert and able to swallow. documented in this encounter
--- OUTSIDE RECORDS SUMMARY | 2025-06-29 16:21 | XMS_ITS | Encounter Summary ---
Author Organization [facility] Address [address] [place], [place] [id number] Care Team Providers Care Science Interpreter Name Role Phone Unavailable Primary Care Provider Unavailabl e Reason for Visit * Auth/Cert (Routine)SpecialtyDiagnoses / ProceduresReferred By ContactReferred To ContactCase Management Diagnoses DENISHA, UTI, BACK PAIN, ANEMIA Procedures N/A [facility] [address] [place] [phone] Phone: tel: [facility] [address] [place] [phone] Phone: tel: Referral IDStatusReasonStart DateExpiration DateVisits RequestedVisits [id number] Encounter Details DateTypeDepartmentCare Team (Latest Contact Info)Eijexnsuwgr38/19/2025 4:21 PM EST - 06/29/2025 4:51 PM ESTSurgery [facility] [address] [place], [place] [id number] Florentino Lindsey MD [address] [place], [place] [id number] ESOPHAGOGASTRODUODENOSCOPY Surgery Details Date/TimeStatusLocationORServicePatient ClassCase ClassCase TypeTrauma Case? 06/29/2025 4:21 PMPostedMulti Specialty EndoscopyENDO 01Gastroenterology InpatientElectivePanel 1 ProcedureLRBAnesOp RegionWound ClassComments ESOPHAGOGASTRODUODENOSCOPYN/AMAC/Local SurgeonSurgeon RoleServicePanFlorentino Graves, DENISErisariahyGastroenterology1 documented in this encounter Social History Tobacco UseTypesPacks/DayYears UsedDateSmoking Tobacco: [facility] UtilitiesAnswerDate RecordedIn the past 12 months has the [employer], [employer], oil, or water [employer] threatened to shut off services in your [...] RecordedIn the past 12 months has the [employer], [employer], or water [employer] threatened to shut off services in your home?No06/24/2025Sex and Gender InformationValueDate RecordedSex Assigned at BirthNot on fileLegal IpgJtpe43/22/2023 9:47 AM ESTGender IdentityNot on file Sexual OrientationNot on filedocumented as of this encounter Last Filed Vital Signs Vital SignReadingTime TakenCommentsBlood Ulfliuxa540/8906/29/2025 3:57 PM EST Olilm960006/29/2025 3:57 PM DAURftdvdnbfgv08.9 ??C (98.5 ??F)06/29/2025 3:57 PM ESTRespiratory Flmm486208/30/2024 3:57 PM ESTOxygen Tddujczvrz727%06/29/2025 3:57 PM ESTInhaled Oxygen Concentration--Bexvqy40.2 kg (135 lb)06/24/2025 5:31 PM EST Cifxsz203.8 cm (5' 10 )06/24/2025 5:31 PM ESTBody Mass Index19.37108/25/2024 5:31 PM ESTdocumented in this encounter Functional Status * Patient InformationQuestionAnswerDate of AssessmentAuthorImpairmentsAmbulation / Sdlgeild10/22/2025 9:09 AM Davi Ignacio RN * Temperature [...] medications?No06/24/2025 5:31 PM Lizzy Neumann RN * [place]-Suicide Severity Rating Scale (C-SSRS)QuestionAnswerDate of AssessmentAuthor2) Current suicidal jxlohbziBh51/14/2025 5:31 PM Lizzy Neumann, RN1) Wish to be fvrnOg2406/24/2025 5:31 PM Lizzy Neumann, RN6) C-SSRS Suicidal UqaldtyqLf84/14/2025 5:31 PM Lizzy Neumann, RN * 6 Clicks Basic Mobility PTQuestionAnswerDate of AssessmentAuthorDifficulty turning over in xku06709/03/2024 11:00 AM Lorraine Schmitz, PTDifficulty sitting down and standing up from a chair with yuqq63509/03/2024 11:00 AM Lorraine Fam, PTDifficulty moving from lying on back to sitting on the side of the scb36509/03/2024 11:00 AM Lorraine Schmitz, PTHelp from another person moving to and from bed to a ocvss72309/03/2024 11:00 AM Lorraine Schmitz, PTHelp from another person to walk in hospital jrmb89409/03/2024 11:00 AM Lorraine Schmitz, PTHelp from another person climbing 3-5 steps with a bcobwht881/23/2025 11:00 AM Lorraine Schmitz, PTPT 6 Clicks Score18 07/03/2025 11:00 AM Lorraine Schmitz, PTPT Discharge RecommendationsHome 07/03/2025 11:00 AM Lorraine Schmitz, PT * 6 Clicks Daily Activity OTQuestionAnswerDate of AssessmentAuthorHelp from another person Eating arapb89009/03/2024 10:00 AM Alvina Vega OTHelp from another person taking care of personal atybfnrk636/23/2025 10:00 AM Alvina Vega OTHelp from another person fdqtwfe052/23/2025 10:00 AM Alvina Vega, OTHelp from another person putting on and taking off regular upper body hqkjtzju641/23/2025 10:00 AM ESTWaryu, Alvina, OTHelp from another person putting on and taking off regular lower body xbgmoxbk115/23/2025 10:00 AM Alvina Vega, OTHelp from another person wumvvdxvd947/23/2025 10:00 AM Alvina Vega, OTOT 6 Clicks Tbjkq298607/03/2025 10:00 AM Alvina Vega, OTOT Discharge RecommendationsHome;With assistance;With Home OT07/03/2025 10:00 AM Alvina Vega, OT * Pre-Procedure Verification ([place] Protocol)QuestionAnswerDate of AssessmentAuthorPatient PaxfnveolglCqkqfkouh50/22/2025 9:09 AM Davi Ignacio RN * Risk of SuicideAnswerDate of AssessmentAuthorNegative Paviwa1306/24/2025 5:31 PM Lizzy Neumann RN * IntegumentaryQuestionAnswerDate of AssessmentAuthorMucous MembranesWNL 07/03/2025 8:43 AM Ana Chacon, JOSEkin Temperature / MoistureWNL 07/03/2025 8:43 AM Ana Chacon, RNHydrationDecreased qsffsg8809/03/2024 8:43 AM Ana Chacon, GHLgonbvezcabvhN43/23/2025 8:43 AM Ana Chacon, JOSEkin LahsoLulf51/23/2025 8:43 AM Ana Chacon, RN * Numeric Pain ScaleQuestionAnswerDate of AssessmentAuthorPain Score4/10 07/03/2025 11:37 AM Ana Chacon, RN * PainQuestionAnswerDate of AssessmentAuthorPAIN: Pain CfxifcfpPixu15/23/2025 8:43 AM Ana Chacon RNPain Location XdufzhwhcvZcljfsjjq46/22/2025 9:42 PM Shannen Fontana RNPain Scale Used? (S)Twujggi2907/03/2025 8:43 AM Ana Chacon RNPain Description (Q)Aching;Jnmvclro52/22/2025 9:42 PM Shannen Fontana, ROCÍOain InterventionsMedication (See MAR)07/03/2025 8:43 AM Ana Chacon, KARIN * RespiratoryQuestionAnswerDate of AssessmentAuthorRespiratory PatternWNL 07/03/2025 8:43 AM Ana Chacon, KARIN * Neurological / NeuromuscularQuestionAnswerDate of AssessmentAuthorAttentionWNL 07/03/2025 8:43 AM Ana Chacon, RNMotor RT Upper Zjqovzmtt657/23/2025 8:43 AM Ana Chacon, RNMotor LT Upper Dzglfyclh266/23/2025 8:43 AM Ana Roberts, RNMotor RT Lower Ficuibhym877/23/2025 8:43 AM Ana Chacon, RNMotor LT Lower Phyasxpfr922/23/2025 8:43 AM Ana Chacon, RNLevel of UrtpccbkqpuabBTI98/23/2025 8:43 AM Ana Chacon, RN DmwgeieojgaKKO04/23/2025 8:43 AM Ana Chacon, RN * Acceptable Level of Pain?AnswerDate of XendiepuzyAyjtrx660/14/2025 5:31 PM Lizzy Woodward RN * Pain Interventions at HomeAnswerDate of AqzeltdskwYjomyffupqmgx86/14/2025 5:31 PM Lizzy Neumann RN * Vital SignsQuestionAnswerDate of AssessmentAuthorMAP (mmHg)9007/03/2025 1:44 PM Honey Schuster * Advance DirectivesQuestionAnswerDate of AssessmentAuthorType of Advance DirectiveLiving Will06/24/2025 5:31 PM Lizzy Neumann, RNAdvance Directives?Yes - paper copy with rrcohil5806/24/2025 5:31 PM Lizzy Neumann RN * Functional ScreenQuestionAnswerDate of AssessmentAuthorDecline in mobilityNo 06/24/2025 5:31 PM Lizzy Neumann RNDecline in activities of daily living (ADL)No06/24/2025 5:31 PM Lizzy Neumann RNDecline in speech, cognition, or crraatujzyIb16/14/2025 5:31 PM Lizzy Neumann RN * Psychosocial ScreenQuestionAnswerDate of AssessmentAuthorGroup Home / Halfway / Psychiatric Facility?No06/24/2025 5:31 PM Lizzy Neumann, RNAbuse?No 06/24/2025 5:31 PM Lizzy Neumann RNMethod(s) [...] Lizzy Neumann RN * VitalsQuestionAnswerDate of AssessmentAuthorVITALS NHSCBAqy59/23/2025 1:44 PM Honey Schuster * Activity & PositioningQuestionAnswerDate of AssessmentAuthorActivityIn bed 07/03/2025 2:40 PM Yanique SchusterhROMActive zdqjhe8307/03/2025 2:40 PM Thomas RickettsositioningSelf essbvqbmvob14/23/2025 2:40 PM Honey SchusterWeight BearingAs awjkhebur31/23/2025 2:40 PM Honey SchusterHead of BedSelf ixaynmejj49/23/2025 2:40 PM Hamzah Schuster of AssistanceOne Jjardg2407/03/2025 2:40 PM Yanique SchusterhTurn and GnlskpaaylAeen48/23/2025 8:34 AM ESTBargainer, MariahProgressive Mobility LevelLevel 412/ 1:50 AM Zee FarleyeAssistive RbywsxwLoqove00/23/2025 1:55 PM Ana Chacon RN * DVT ProphylaxisQuestionAnswerDate of AssessmentAuthor$ ICDsMaintained 06/30/2025 5:00 PM Liliam Purcell, KARIN * Basic CareQuestionAnswerDate of AssessmentAuthorHygieneDisposable wipes 07/02/2025 1:50 AM Cookie Farley * Sedation OutcomesQuestionAnswerDate of AssessmentAuthorSedation Outcomes (Adult)None07/02/2025 9:57 AM Davi Ignacio RN * Focused Assessment?QuestionAnswerDate of AssessmentAuthorFocused Assessment?No 07/03/2025 8:43 AM Ana Chacon RN * RASS ScoreAnswerDate of DljwbjlvnnOojgch115/23/2025 8:43 AM Ana Chacon RN * CAM-ICU Delirium AssessmentQuestionAnswerDate of AssessmentAuthorDelirium Prevention MeasuresAnticipate needs07/03/2025 8:43 AM Ana Chacon RN * Patient InformationQuestionAnswerDate of AssessmentAuthorImpairmentsAmbulation / Mppzryne56/22/2025 9:09 AM Davi Ignacio RNID Band StatusApplied 07/02/2025 9:09 AM Davi Ignacio RN * Temperature ManagementQuestionAnswerDate of AssessmentAuthorTemp srcOral 07/03/2025 1:44 PM Honey Schuster * Notification of Admission/Transfer/DischargeQuestionAnswerDate of Assessment AuthorPatient Family/Crane Hooker NotificationPatient requests to self- notify family/tqzdtsxwhpkebx59/14/2025 5:31 PM Lizzy Neumann RN * Assessment and Discharge Planning EvaluationQuestionAnswerDate of Assessment AuthorREADMISSION LESS THAN 30 GIEFRk4206/25/2025 1:00 PM Doreen Warren LISWINTERVIEWEDPatient06/25/2025 1:00 PM ESTKassouf, Doreen, LISWHOME HEALTH CARE PRIOR TO YTHOSXSMUGk88/15/2025 1:00 PM Doreen Warren LISWDIALYSIS No06/25/2025 1:00 PM Doreen Warren LISWTRANSPORTATION TO AND/OR FROM APPOINTMENTSFamily/Friend Provides Ride108/26/2024 1:00 PM Doreen Warren LISWFUNCTIONAL STATUS PRIOR TO ADMISSIONIndependent with ADL's 06/25/2025 1:00 PM Doreen Warren LISWREALAURENCE RISK SCORE ISRising Risk06/25/2025 1:00 PM Doreen Warren LISWDISCUSSSED WHAT HELP PATIENT WOULD EOJMJlv69/15/2025 1:00 PM Doreen Warren LISWCOGNITIVE STATUS Tgxmxelo99/15/2025 1:00 PM Doreen Warren LISWHAS ADVANCE DIRECTIVE ON WYLCPk8606/25/2025 1:00 PM Doreen Warren LISWLIVING SITUATIONHome with Ypzxtl0406/25/2025 1:00 PM Doreen Warren LISWADMISSION INSURANCEMedicare 06/25/2025 1:00 PM Doreen Warren LISWCONNECTED TO MENTAL HEALTH UVYYBDCSHv36/15/2025 1:00 PM Doreen Warren LISWHOME ONYFEAFa13/15/2025 1:00 PM Doreen Warren LISWCONNECTED TO COMMUNITY HBGTGACHYu65/15/2025 1:00 PM Doreen Warren LISWCONNECTED TO SUBSTANCE ABUSE SERVICESNo 06/25/2025 1:00 PM Doreen Warren LISW * Discharge Planning ScreenQuestionAnswerDate of AssessmentAuthorDisability ([place] Disability Score) 5:31 PM Lizzy Neumann, RNWalking limitation (self reported) 5:31 PM Lizzy Neumann, RNPrior living /14/2025 5:31 PM Lizzy Neumann RNAge (Years)8 06/24/2025 5:31 PM Lizzy Neumann RNEarly Discharge Planing Score8 06/24/2025 5:31 PM Lizzy Neumann RN * Human Trafficking ScreeningQuestionAnswerDate of AssessmentAuthorCan You Come and Go as You Please?Yes06/24/2025 5:31 PM Lizzy Neumann RNIs Anyone Forcing YouNo108/25/2024 5:31 PM Lizzy Neumann RN * Meds 2 BedsQuestionAnswerDate of AssessmentAuthorPrior to discharge, our [facility] pharmacy will deliver your medications to your [...] and InterventionsQuestionAnswerDate of AssessmentAuthor DISCHARGE PLAN DISCUSSEDPatient;Patient's Vwrxxb7906/28/2025 2:08 PM Angela Jain RNPATIENT TREATMENT PREFERENCESDC to home06/28/2025 2:08 PM Angela Martinez RNType of [facility] Infusion;Registered Nurse06/28/2025 2:08 PM Angela Jain RNDISCHARGE HOME HEALTH QUABEes10/18/2025 2:08 PM Angela Jain RNLawrence [facility] Hospitale Health Care ProviderElara Zeetsr2906/28/2025 2:08 PM Angela Jain RNDISCHARGE CARE INTERVENTIONS2.00;1.00;[id number] 06/28/2025 2:08 PM Angela Jain RNDISCHARGE DISPOSITIONDischarge to Home06/28/2025 2:08 PM Angela Jain RN * Discharge InformationQuestionAnswerDate of AssessmentAuthorTransportation at DischargePrimary oroxkbq6706/24/2025 5:31 PM Lizzy Neumann RNHas discharge transport been arranged?No06/24/2025 5:31 PM Lizzy Neumann RNWe may be able to connect you with resources and agencies that can help you by making a referral onyour behalf. Would you like help?No06/24/2025 5:31 PM Lizzy Neumann RNIn the past 12 months has the [employer], gas, oil, or water [employer] threatened to shut off services in your home?No06/24/2025 5:31 PM Lizzy Neumann RNIn the last 12 months, was there a time when you were not able to pay the mortgage or rent on time?No06/24/2025 5:31 PM Lizzy Woodward RNIn the past 12 months, has lack of transportation kept you from medical appointments or from getting medications?No06/24/2025 5:31 PM Lizzy Neumann RN * [place]-Suicide Severity Rating Scale (C-SSRS)QuestionAnswerDate of AssessmentAuthor2) Current suicidal rkyjrfiqYp16/14/2025 5:31 PM Lizzy Neumann RN1) Wish to be vqipEy8406/24/2025 5:31 PM Lizzy Neumann RN6) C-SSRS Suicidal WbnlzovmHz85/14/2025 5:31 PM Lizzy Neumann RN * 6 Clicks Basic Mobility PTQuestionAnswerDate of AssessmentAuthorDifficulty turning over in vbj47809/03/2024 11:00 AM ESTRichards, Briahna, PTDifficulty sitting down and standing up from a chair with zyuf51809/03/2024 11:00 AM Lorraine Fam, PTDifficulty moving from lying on back to sitting on the side of the mct57209/03/2024 11:00 AM Lorraine Schmitz, PTHelp from another person moving to and from bed to a nxlnz61809/03/2024 11:00 AM Lorraine Schmitz, PTHelp from another person to walk in hospital aztg50909/03/2024 11:00 AM Lorraine Schmitz, PTHelp from another person climbing 3-5 steps with a /23/2025 11:00 AM Lorraine Schmitz, PTPT 6 Clicks Score18 07/03/2025 11:00 AM Lorraine Schmitz, PTPT Discharge RecommendationsHome 07/03/2025 11:00 AM Lorraine Schmitz, PT * 6 Clicks Daily Activity OTQuestionAnswerDate of AssessmentAuthorHelp from another person Eating eirba96209/03/2024 10:00 AM Elidia Vegayn, OTHelp from another person taking care of personal hrskizpl676/23/2025 10:00 AM ESTJacobuElidiayn, OTHelp from another person jdoeqlb846 10:00 AM ESTShane Joytlyn, OTHelp from another person putting on and taking off regular upper body veqhbklp017/23/2025 10:00 AM ESTRyanyuShaneAlvina, OTHelp from another person putting on and taking off regular lower body vopumeax564/23/2025 10:00 AM ESTShane Joytlyn, OTHelp from another person diysrpset879/23/2025 10:00 AM Alvina Vega, OTOT 6 Clicks Htouc914707/03/2025 10:00 AM Alvina Vega, OTOT Discharge RecommendationsHome;With assistance;With Home OT07/03/2025 10:00 AM Alvina Vega, OT * Skin IntegrityQuestionAnswerDate of AssessmentAuthorHead Skin IntegrityWNL 07/03/2025 8:43 AM Ana Chacon, RNNeck Skin VyeaagbcuTUE79/23/2025 8:43 AM Ana Chacon, RNThoracic Skin PkuxwoljkQJE18/23/2025 8:43 AM Ana Chacon, RNArms Skin IntegritySee LDA;Device eslmack1407/03/2025 8:43 AM Ana Chacon, RNSacral/Buttock Region Skin IntegrityWNL 07/03/2025 8:43 AM Ana Chacon, RNLegs Skin MvhtvdiydVEB86/23/2025 8:43 AM Ana Chacon, RNFeet Skin IntegrityExcessively dry07/03/2025 8:43 AM Ana Chacon, RNOther Skin BleegpwrfDID31/20/2025 9:00 AM Carol Naylor RN * Pre-Procedure Verification ([place] Protocol)QuestionAnswerDate of AssessmentAuthorRelevant AtruejcqPpuawzmmo01/22/2025 9:09 AM Davi Ignacio RNCurrent H&P and/or Other Relevant TbuttmjcxzxxnWtyskjqjf41/22/2025 9:09 AM Davi Ignacio RNPatient FcbyfgdqumoNhdojvfzl21/22/2025 9:09 AM Davi Ignacio RN * Vital SignsQuestionAnswerDate of AssessmentAuthorRhythm AnalysisPaced 06/27/2025 2:45 PM Cookie Garcia RN * Patient Belongings at BedsideQuestionAnswerDate of AssessmentAuthorBelongings at BedsideDentures;Vision;Clothing;Electronic pzqclch1406/24/2025 5:31 PM EST Lizzy Rogers RNDenturesLowers;Hpynwz2108/25/2024 5:31 PM Lizzy Neumann, RNVision - Corrective RgyqrfQmazvve33/14/2025 5:31 PM Lizzy Neumann, RNClothingPants;Jacket/coat;Shirt108/25/2024 5:31 PM Lizzy Neumann, RNPatient ElectronicsCell phone;Uwazggv02/14/2025 5:31 PM Lizzy Woodward RN * Patient Belongings Sent HomeQuestionAnswerDate of AssessmentAuthorBelongings Sent HomeNo oifnifsqyi88/14/2025 5:31 PM Lizzy Neumann RN * Patient Belongings SecuredQuestionAnswerDate of AssessmentAuthorBelongings Secured in Safe or LockerNo /14/2025 5:31 PM Lizzy Neumann RN * Medications Brought by patient?QuestionAnswerDate of AssessmentAuthor Medications Brought by Patient?No06/24/2025 5:31 PM Lizzy Neumann RN * Risk of SuicideAnswerDate of AssessmentAuthorNegative Ahbnzj5606/24/2025 5:31 PM Lizzy Neumann RN * ReligionQuestionAnswerDate of PcytxakuckAvkjytFaekqsnuPikaffpe41/14/2025 5:31 PM Lizzy Neumann RN * Ability to Answer Admission Screening QuestionsQuestionAnswerDate of AssessmentAuthorAble to Answer Screening Questions?Yes06/24/2025 5:31 PM Lizzy Woodward RNEligible for Virtual Nurse Admission/Discharge/Education No06/24/2025 5:31 PM Lizzy Neumann RNPossible Candidate for Virtual Nursing? (VCN Nurse Only)No06/24/2025 5:31 PM Lizzy Neumann RN * Violence/Aggression Assessment Checklist (VAAC)QuestionAnswerDate of AssessmentAuthorHistory of WsqbifefBc82/14/2025 5:31 PM Lizzy Neumann RNUncooperativeNo06/24/2025 5:31 PM Lizzy Neumann RNVerbal AbuseNo 06/24/2025 5:31 PM Lizzy Neumann RNHostile/Attacking with ObjectsNo 06/24/2025 5:31 PM Lizzy Neumann RNThreatsNo06/24/2025 5:31 PM EST Teuscher, Lizzy Y, RNPerson Being NegeqjgeJujamxv78/14/2025 5:31 PM EST Lizzy Rogers Y, RNAssaultive/TuohpicexDy81/14/2025 5:31 PM Lizzy Neumann, RNViolence Screening Risk Intervention Wihxp43508/25/2024 5:31 PM EST Lizzy Rogers Y, RNViolence Screening SUB Risk Xhcvo48208/25/2024 5:31 PM EST Lizzy Rogers Y, RN * Twan ScaleQuestionAnswerDate of AssessmentAuthorSensory Perceptions4 07/03/2025 8:43 AM Ana Chacon, WWSoxvgnoe207/23/2025 8:43 AM Ana Roberts, NOSpcjylxr786/23/2025 8:43 AM Ana Chacon, RN Vtnzylzf070/23/2025 8:43 AM Ana Chacon, JVHhjejxayk492/23/2025 8:43 AM Ana Chacon, RNFriction & Plmkn31609/03/2024 8:43 AM Ana Chacon, RNBraden Tvlzw3865/23/2025 8:43 AM Ana Chacon, JOSEkin Risk LevelNo Risk07/03/2025 8:43 AM Ana Chacon, RN * Behavior LevelQuestionAnswerDate of ZlspjxgtudXvhefkPzxvcajnZIF91/14/2025 5:31 PM Lizzy Neumann, RN * IntegumentaryQuestionAnswerDate of AssessmentAuthorMucous MembranesWNL 07/03/2025 8:43 AM Ana Chacon, RNSkin Temperature / MoistureWNL 07/03/2025 8:43 AM Ana Chacon, RNHydrationDecreased hkoazg9609/03/2024 8:43 AM Ana Chacon, IGBszukahlqgtujD48/23/2025 8:43 AM Ana Chacon, JOSEkin OmighNxle98/23/2025 8:43 AM Ana Chacon, RN * Skin InterventionsQuestionAnswerDate of AssessmentAuthor$ Skin Interventions Elevate heels;Qxzlldtgccsg37/23/2025 8:43 AM Ana Chacon, RNSleep Surface (Bed)Hill-Rom (Advanta 2 and VersaCare) Pressure Redistribution Vykbjnhj2025 8:43 AM Ana Chacon RNLow Risk InterventionsBraden Scale Prevention Strategies sltprvsoj95/22/2025 9:42 PM Shannen Fontana, RN * Numeric Pain ScaleQuestionAnswerDate of AssessmentAuthorPain Score4/10 07/03/2025 11:37 AM Ana Chacon, RN * PainQuestionAnswerDate of AssessmentAuthorPAIN: Pain TsznouvsLxym00/23/2025 8:43 AM Ana Chacon, Marcella Location VxoxwghuekOctnqqhng00/22/2025 9:42 PM Shannen Fontana, Marcella Scale Used? (S)Mwvfcxb2007/03/2025 8:43 AM Ana Chacon RNPain Description (Q)Aching;Syadgdgp79/22/2025 9:42 PM Shannen Fontana, Marcella InterventionsMedication (See MAR)07/03/2025 8:43 AM Ana Chacon, RN * Oxygen TherapyQuestionAnswerDate of AssessmentAuthorO2 DeviceRoom air 07/03/2025 1:44 PM Kartina Schuster Flow Rate (l/min) 9:31 AM Davi Ignacio, KARIN * RespiratoryQuestionAnswerDate of AssessmentAuthorRespiratory (WNL)X109/03/2024 8:43 AM Ana Chacon, RNRespiratory PunvquxCFI97/23/2025 8:43 AM Ana Roberts, RNBreath Sounds - Bilat AnteriorDiminished bases07/03/2025 8:43 AM Ana Chacon RNBreath Sounds - Bilat PosteriorDiminished bases 07/02/2025 5:03 PM Lena Perez RRespiratory (Other)RA, pt denies SOB06/24/2025 5:31 PM ESTTeuscher, Lizzy Y, RN * CardiovascularQuestionAnswerDate of AssessmentAuthorHeart XhphhqGRG25/23/2025 8:43 AM Ana Chacon, VGJqbuvxmunhbdyzP67/23/2025 8:43 AM Ana Chacon, RNRUE Peripheral PulsesWNL (2+)07/03/2025 8:43 AM Ana Chacon, RNLUE Peripheral PulsesWNL (2+)07/03/2025 8:43 AM Ana Chacon, RN RLE Peripheral Pulses1+07/03/2025 8:43 AM Ana Chacon, RNLLE Peripheral Pulses1+07/03/2025 8:43 AM Ana Chacon, RNCapillary Refill WNL109/03/2024 8:43 AM Ana Chacon, NDKzwmbcrbJNJ12/23/2025 8:43 AM Ana Roberts, RNCardiovascular (Other)AICD109/02/2024 5:03 PM Lena Perez R * EdemaQuestionAnswerDate of AssessmentAuthorEdema NxpkhvzjZDM82/23/2025 8:43 AM Ana Chacon, RNEdema QualityPitting 1+07/02/2025 9:42 PM Shannen Fontana, RN * Neurological / NeuromuscularQuestionAnswerDate of AssessmentAuthorWakefulness WNL109/03/2024 8:43 AM Ana Chacon, SRWjcdwenkxXQF04/23/2025 8:43 AM nAa Chacon, RNMotor RT Upper Dinjakort911/23/2025 8:43 AM Ana Chacon, RNMotor LT Upper Hwpxvjsvc155/23/2025 8:43 AM Ana Chacon, RNMotor RT Lower Uifazpwrm082/23/2025 8:43 AM Ana Chacon, RNMotor LT Lower Xlvgukhtl753/23/2025 8:43 AM Ana Chacon, RNLanguageWNL 07/03/2025 8:43 AM Ana Chacon, WIDxgktnmyGSM69/23/2025 8:43 AM Ana Roberts, RNNeurological / FvttaldxbxllaGWC16/23/2025 8:43 AM Ana Roberts, RNLevel of RsseffybynotpGVH99/23/2025 8:43 AM Ana Chacon, VHWbxefwepfnxDND64/23/2025 8:43 AM Ana Chacon, RNNeuro (Other)gen. bofxblew81/22/2025 9:42 PM Shannen Fontana, RNBehavior InterventionsProvided Jrcfyau4307/03/2025 8:43 AM Ana Chacon, RN * GastrointestinalQuestionAnswerDate of AssessmentAuthorGastrointestinalWNL 07/03/2025 8:43 AM Ana Chacon, RJTjrgfntDLI67/23/2025 8:43 AM Ana Roberts, RNBowel UfhritNWM96/23/2025 8:43 AM Ana Chacon, RN Continence (Stool)WNL109/03/2024 8:43 AM Ana Chacon, RNGI SymptomsWNL 07/03/2025 8:43 AM Ana Chacon, RNGI (Other)regular diet06/24/2025 5:31 PM Lizzy Neumann, RN * GenitourinaryQuestionAnswerDate of AssessmentAuthorUrine Description, Voided Dark yellow/pikadzcdvsvo49/23/2025 8:43 AM Ana Chacon, RN KvetfcjyjvuygU48/23/2025 8:43 AM Ana Chacon, RNContinence (Urine)WNL 07/03/2025 8:43 AM Ana Chacon, RNUrinary FjuemrkoWVS97/23/2025 8:43 AM Ana Chacon, RNGU (Other)Tscfal9307/03/2025 8:43 AM Ana Chacon, RN * Delirium AssessmentQuestionAnswerDate of AssessmentAuthorDisorientation0 07/03/2025 8:43 AM Ana Chacon, RNInappropriate Uhwlxvbk326/ 8:43 AM Ana Chacon, RNInappropriate Kpykuaiskfnvi263/23/2025 8:43 AM Ana Chacon, RNIllusions / Fsvyzqpeulzvvs135/23/2025 8:43 AM Ana Roberts, RNPsychomotor Aupgjxouuef748/23/2025 8:43 AM Ana Chacon, RNBehavior Assessment Mhabd162 8:43 AM Ana Chacon, RN * Fall Risk Assessment (Adult)QuestionAnswerDate of AssessmentAuthorMobility (Gait) 8:43 AM Ana Chacon, Petrona History (past 6 months)5 07/03/2025 8:43 AM Ana Chacon, DCMio33809/03/2024 8:43 AM Ana Chacon, RNIncontinence, Bowel & Tlvzfwu508 8:43 AM Ana Chacon, INOgnxtkzqvgp680/23/2025 8:43 AM Ana Chacon, RNPatient Care Bmyprfxls850/23/2025 8:43 AM Ana Chacon, RNMobility (Assistance)2 07/03/2025 8:43 AM Ana Chacon, RNCognition (Awareness) 8:43 AM Ana Chacon, BUCKall Risk Ebarf2370/23/2025 8:43 AM Ana Chacon, RNMobility (Sensory Deficit) 8:43 AM Ana Chacon, RNUrgency / Qjsvwtmgh938/23/2025 8:43 AM Ana Chacon, RNCognition (Impulsiveness) 8:43 AM Ana Chacon, RNCognition (Limitations) 8:43 AM Ana Chacon, Petrona Risk Level (Adult)Automatically High Risk07/03/2025 8:43 AM Ana Chacon, RN * Fall Interventions (Adult)QuestionAnswerDate of AssessmentAuthorHigh Risk Interventions (Adult)Basic safety interventions initiated, PLUS:;Yellow Fall Precaution wrist band;Yellow non-skid socks;Bed alarm07/03/2025 8:43 AM Ana Roberts RN * Acceptable Level of Pain?AnswerDate of ZrivfltpkjLejeqy806/14/2025 5:31 PM Lizzy Woodward RN * Pain Interventions at HomeAnswerDate of AzrwqhlerkYpwxsjupsvune00/14/2025 5:31 PM Lizzy Neumann RN * Vital SignsQuestionAnswerDate of AssessmentAuthorBP PositionSemi-Fowlers 07/03/2025 1:44 PM Alexandra Schuster (mmHg)9007/03/2025 1:44 PM Honey Ricketts * CommentsQuestionAnswerDate of AssessmentAuthorCommentsreport to floor nurse 07/02/2025 9:56 AM Davi Ignacio RN * OUTPUTQuestionAnswerDate of AssessmentAuthorUrine Incontinence Occurrence1 06/27/2025 10:15 AM Kimmie Hammer, PCNAStool Incontinence Occurrence1 07/02/2025 4:22 AM DEEPALICovinicio, CatherineStool DescriptionLarge;Tarry;Pasty 07/03/2025 1:46 PM Honey Schuster * Advance DirectivesQuestionAnswerDate of AssessmentAuthorType of Advance DirectiveLiving Will06/24/2025 5:31 PM Lizzy Neumann RNAdvance Directives?Yes - paper copy with hxzcnve6606/24/2025 5:31 PM Lizzy Neumann RN * Patient Collaborative GoalsQuestionAnswerDate of AssessmentAuthorHospital Stay Collaborative GoalRemain HDS until DC07/03/2025 8:43 AM Ana Chacon RNMet/Ongoing/Not ZbpYah8407/03/2025 2:16 PM Latoya Lujan RNDaily Collaborative GoalProper pain dcaiyug1607/03/2025 8:43 AM Ana Chacon RNMet/Not ZtjDck2807/03/2025 2:16 PM Latoya Lujan RNAdd a Second Daily Goal?Yes07/02/2025 7:06 AM Cookie Farley * Body PiercingQuestionAnswerDate of AssessmentAuthorBody Piercing?No06/29/2025 3:55 PM Jody Kimble RN * Second Daily Collaborative GoalQuestionAnswerDate of AssessmentAuthorSecond Daily Collaborative GoalPatient's blood glucose will be olmmfqhlla20/22/2025 7:06 AM Monty Farley/Ongoing/Not MetNot Met07/02/2025 7:06 AM Cookie Farley * Functional ScreenQuestionAnswerDate of AssessmentAuthorDecline in mobilityNo 06/24/2025 5:31 PM Lizzy Neumann RNDecline in activities of daily living (ADL)No06/24/2025 5:31 PM Lizzy Neumann RNDecline in speech, cognition, or whezvwucloVb91/14/2025 5:31 PM Lizzy Neumann RN * Psychosocial ScreenQuestionAnswerDate of AssessmentAuthorGroup Home / Halfway / Psychiatric Facility?No06/24/2025 5:31 PM Lizzy Neumann RNAbuse?No 06/24/2025 5:31 PM iLzzy Neumann RNMethod(s) of Communication Speak;Read;Write06/24/2025 5:31 PM Lizzy Neumann RNWithin the last year, have you been humiliated or emotionally abused in other ways by your partner or ex-partner?No06/24/2025 5:31 PM Lizzy Neumann RN * Primary ContactQuestionAnswerDate of AssessmentAuthorPermission to Contact After Discharge?Yes06/24/2025 5:31 PM Lizzy Neumann RNContact Name Rghpmph6706/24/2025 5:31 PM Lizzy Neumann DZMtefthoxpcgjLgxv14/14/2025 5:31 PM Lizzy Neumann RNPhone Hquypw629438880864/14/2025 5:31 PM Lizzy Woodward RN * Gricelda ScaleQuestionAnswerDate of AssessmentAuthorBaseline Vitals (BP)159/89 06/29/2025 5:19 PM Nancyshell Libby, VJTiljtgmh856/22/2025 9:56 AM Davi Ignacio RNRespirations207/02/2025 9:56 AM Davi Ignacio RNCirculation2 07/02/2025 9:56 AM Davi Ignacio RNConsciousness 9:56 AM EST Davi Clark RNO2 Dxunvatzkg051/22/2025 9:56 AM Davi Ignacio RNAldrete Hzuqf59409/02/2024 9:56 AM Davi Ignacio RN * Drug / AlcoholQuestionAnswerDate of AssessmentAuthorCounseling Desired?No 06/24/2025 5:31 PM Lizzy Neumann RNCurrent Social Drug Use?No 06/24/2025 5:31 PM Lizzy Neumann, KARINCurrent ETOH Use?Yes06/24/2025 5:31 PM Lizzy Neumann RN documented as of this encounter Mental Status * Activity & PositioningQuestionAnswerEntry DateAuthorPositioningSelf fxnwucihoee74/23/2025 2:40 PM Honey SchusterHead of BedSelf regulated 07/03/2025 2:40 PM Honey Schuster * Isolation & PrecautionsQuestionAnswerEntry DateAuthor$ Clinical Precautions Fall Afoseygcnkc16/22/2025 9:09 AM Davi Ignacio RN * DVT ProphylaxisQuestionAnswerEntry DateAuthor$ VNXrIdnghfwzou91/20/2025 5:00 PM Liliam Purcell RN * Basic CareQuestionAnswerEntry DateAuthorHygieneDisposable wipes07/02/2025 1:50 AM Cookie Farley * Sedation OutcomesQuestionAnswerEntry DateAuthorSedation Outcomes (Adult)None 07/02/2025 9:57 AM Davi Ignacio RN * Focused Assessment?QuestionAnswerEntry DateAuthorFocused Assessment?No 07/03/2025 8:43 AM Ana Chacon RN * RASS ScoreAnswerEntry SunjNjzzgf929/23/2025 8:43 AM Ana Chacon RN * CAM-ICU Delirium AssessmentQuestionAnswerEntry DateAuthorDelirium Prevention MeasuresAnticipate needs07/03/2025 8:43 AM Ana Chacon RN * Procedure Start TimeQuestionAnswerEntry DateAuthorPatient in Room Ugxv38105 07/02/2025 9:09 AM Davi Ignacio RN * Procedure Start TimeAnswerEntry BpibFctqoe7248530/22/2025 9:30 AM Davi Ignacio RN * Procedure End TimeQuestionAnswerEntry DateAuthorProcedure End Fhwe09269 07/02/2025 9:47 AM Davi Ignacio RNPatient Out of Room Gont2442078/22/2025 9:58 AM Davi Ignacio RN * Patient [...] PM Jody Kimble RNBeta Gilberto (Last Dose) Ugkx28806 06/29/2025 3:55 PM Jody Kimble RN * Surgical CountsQuestionAnswerEntry DateAuthorCountsN/A109/02/2024 9:09 AM Davi Morales RN * Fire Risk AssessmentQuestionAnswerEntry DateAuthorFire Risk Laszj180 9:09 AM Davi Ignacio RNLow Fire Risk WfmxwfbitbfzfBplqflwqu76/22/2025 9:09 AM Davi Ignacio RN * Position & PrepQuestionAnswerEntry DateAuthorSite PrepN/A109/02/2024 9:09 AM Davi Ignacio RN * Temperature ManagementQuestionAnswerEntry DateAuthorTemp jnwHsyo2807/03/2025 1:44 PM Honey Schuster * Notification of Admission/Transfer/DischargeQuestionAnswerEntry DateAuthor Patient Family/Crane Hooker NotificationPatient requests to self-notify family/wnqoaztmnrzsty64/14/2025 5:31 PM Lizzy Neumann RN * Assessment and Discharge Planning EvaluationQuestionAnswerEntry DateAuthor READMISSION LESS THAN 30 ULILMm6406/25/2025 1:00 PM Doreen Warren LISW LZDVHCTCQMPYfyzwfw66/15/2025 1:00 PM Doreen Warren LISWHOME HEALTH CARE PRIOR TO ICHIQABIIKk74/15/2025 1:00 PM Doreen Warren LISWDIALYSIS No06/25/2025 1:00 PM Doreen Warren LISWTRANSPORTATION TO AND/OR FROM APPOINTMENTSFamily/Friend Provides Ride108/26/2024 1:00 PM Doreen Warren LISWFUNCTIONAL STATUS PRIOR TO ADMISSIONIndependent with ADL's 06/25/2025 1:00 PM Doreen Warren LISWREADMISSION RISK SCORE ISRising Risk06/25/2025 1:00 PM Doreen Warren LISWDISCUSSSED WHAT HELP PATIENT WOULD AWJSMyz68/15/2025 1:00 PM Doreen Warren LISWCOGNITIVE STATUS Peiphdyg12/15/2025 1:00 PM Doreen Warren LISWHAS ADVANCE DIRECTIVE ON QBMEWu1906/25/2025 1:00 PM Doreen Warren LISWLIVING SITUATIONHome with Iabzyw3906/25/2025 1:00 PM Doreen Warren LISWADMISSION INSURANCEMedicare 06/25/2025 1:00 PM Doreen Warren LISWCONNECTED TO MENTAL HEALTH IEDDPQITFo43/15/2025 1:00 PM Doreen Warren LISWHOME BEESNZHb40/15/2025 1:00 PM Doreen Warren LISWCONNECTED TO COMMUNITY JCOJPCJVCj46/15/2025 1:00 PM Doreen Warren LISWCONNECTED TO SUBSTANCE ABUSE SERVICESNo 06/25/2025 1:00 PM Doreen Warren LISW * Discharge Planning ScreenQuestionAnswerEntry DateAuthorDisability ([place] Disability Score) 5:31 PM Lizzy Neumann RNWalking limitation (self reported) 5:31 PM Lizzy Neumann RNPrior living fclwaa343/14/2025 5:31 PM Lizzy Neumann RNAge (Years)8 06/24/2025 5:31 PM Lizzy Neumann RNEarly Discharge Planing Score8 06/24/2025 5:31 PM Lizzy Neumann RN * Influenza Vaccine Screen- March through October (age 6 months or greater) QuestionAnswerEntry DateAuthorHave you had an influenza vaccine this season? Gxmjmq7706/29/2025 3:55 PM Jody Kimble RN * Human Trafficking ScreeningQuestionAnswerEntry DateAuthorCan You Come and Go as You Please?Yes06/24/2025 5:31 PM Lizzy Neumann RNIs Anyone Forcing YouNo108/25/2024 5:31 PM Lizzy Neumann RN * Meds 2 BedsQuestionAnswerEntry DateAuthorPrior to discharge, our [facility] pharmacy will deliver your medications to your bedside.Yes07/03/2025 2:21 PM Latoya Lujan RN * Abuse ScreeningQuestionAnswerEntry DateAuthorAre you currently in a situation where someone is hurting you?No06/29/2025 3:55 PM Jody Kimble RN * Nutrition ScreenQuestionAnswerEry DateAuthorHave you recently lost weight without trying?No06/24/2025 [...] PM Angela Jain RNDISCHARGE PLAN DISCUSSED Patient;Patient's Eemxdw3406/28/2025 2:08 PM Angela Jain, RNAGREEMENT OF DISCHARGE PYVPLok94/18/2025 2:08 PM Angela Jain RNHome Infusion Agency for DischargeOption Care06/28/2025 2:08 PM Angela Jain RNWas an Episode of Care created for this encounter?No06/28/2025 2:08 PM Angela Jain, RNPATIENT TREATMENT PREFERENCESDC to home06/28/2025 2:08 PM Angela Martinez RNDISCHARGE PLANDischarge to Home06/28/2025 2:08 PM Angela Jain, RNType of [facility];Registered Nurse06/28/2025 2:08 PM Angela Jain RNDISCHARGE HOME HEALTH VQZNYal84/18/2025 2:08 PM Angela Jain RNLawrence [facility] Hospitalvandana [facility] Care ProviderElara Jplmit1506/28/2025 2:08 PM Angela Jain, RNPalliative Care GkbnocwyVj66/18/2025 2:08 PM Angela Jain RNDISCHARGE CARE INTERVENTIONS2.00;1.00;1.226858943119/18/2025 2:08 PM Angela Martinez RNCase Management Discharge QcvelyyftDnf95/18/2025 2:08 PM Angela Jain RNDISCHARGE DISPOSITIONDischarge to Home06/28/2025 2:08 PM Angela Jain RN * Discharge InformationQuestionAnswerEntry DateAuthorTransportation at Discharge Primary rvtnxvg6606/24/2025 5:31 PM Lizzy Neumann RNHas discharge transport been arranged?No06/24/2025 5:31 PM Lizzy Neumann RNWe may be able to connect you with resources and agencies that can help you by making a referral onyour behalf. Would you like help?No06/24/2025 5:31 PM Lizzy Neumann RNIn the past 12 months has the electric, gas, oil, or water Tra[employer] threatened to shut off services in your home?No06/24/2025 5:31 PM Lizzy Neumann RNIn the last 12 months, was there a time when you were not able to pay the mortgage or rent on time?No06/24/2025 5:31 PM Lizzy Neumann RN In the past 12 months, has lack of transportation kept you from medical appointments or from getting medications?No06/24/2025 5:31 PM Lizzy Neumann RN * [place]-Suicide Severity Rating Scale (C-SSRS)QuestionAnswerEntry DateAuthor 2) Current suicidal sruuzuocYx61/14/2025 5:31 PM Lizzy Neumann RN1) Wish to be xtfbIn2906/24/2025 5:31 PM Lizzy Neumann RN6) C-SSRS Suicidal OfixqmbqLz21/14/2025 5:31 PM ESTTeuscher, Lizzy Y, RN * 6 Clicks Basic Mobility PTQuestionAnswerEntry DateAuthorDifficulty turning over in dbx13809/03/2024 11:00 AM Lorraine Schmitz, PTDifficulcristi sitting down and standing up from a chair with pyps05309/03/2024 11:00 AM Lorraine Schmitz, PTDifficulty moving from lying on back to sitting on the side of the htq47209/03/2024 11:00 AM Lorraine Schmitz, PTHelp from another person moving to and from bed to a cntei77509/03/2024 11:00 AM Lorraine Schmitz, PT Help from another person to walk in hospital dzqa29309/03/2024 11:00 AM Lorraine Fam, PTHelp from another person climbing 3-5 steps with a ouzdsrn949/23/2025 11:00 AM Lorraine Schmitz, PTPT 6 Clicks Score18 07/03/2025 11:00 AM Lorraine Schmitz, PTPT Discharge RecommendationsHome 07/03/2025 11:00 AM Lorraine Schmitz, PT * Skin IntegrityQuestionAnswerEntry DateAuthorHead Skin TkxygwwlfSDR89/23/2025 8:43 AM Ana Chacon, RNNeck Skin EjwtjydiqVDO49/23/2025 8:43 AM Ana Roberts, RNThoracic Skin JqiglsiifJAC92/23/2025 8:43 AM Ana Chacon, RNArms Skin IntegritySee LDA;Device tbgenjj5507/03/2025 8:43 AM Ana Roberts, RNSacral/Buttock Region Skin BirzadwctKPL06/23/2025 8:43 AM Ana Chacon, RNLegs Skin BdyqotzwkUBN40/23/2025 8:43 AM Ana Chacon, RNFeet Skin IntegrityExcessively dry07/03/2025 8:43 AM Ana Chacon, RNOther Skin WnnagiawtXQS55/20/2025 9:00 AM Carol Hernandez RN * Pre-Procedure Verification ([place] Protocol)QuestionAnswerEntry DateAuthor Procedural GovwSbqjwflic65/22/2025 9:09 AM Davi Ignacio RNRelevant YsrvvyqlZhxdurosb29/22/2025 9:09 AM Davi Ignacio RNCurrent H&P and/or Other Relevant TufoaqqrgnmroZldywkxze08/22/2025 9:09 AM Davi Ignacio RN Relevant KuqbirfvealGhzlltrqp42/22/2025 9:09 AM Davi Ignacio RNIntra- Procedure VocvncptnspaGcfghltkt42/22/2025 9:09 AM Davi Ignacio RNLab Case Performed InOther (comment)07/02/2025 9:09 AM Davi Ignacio RNAllergies Reviewed?Yes07/02/2025 9:09 AM Davi Ignacio RNPatient Identifiers Oietcnirh47/22/2025 9:09 AM Davi Ignacio RN * Vital SignsQuestionAnswerEntry DateAuthorRhythm WyhtolitKapqk78/17/2025 2:45 PM Cookie Garcia RN * Patient Belongings at BedsideQuestionAnswerEntry DateAuthorBelongings at BedsideDentures;Vision;Clothing;Electronic jtxpnhf5606/24/2025 5:31 PM Lizzy Woodward RNDenturesLowers;Royxap5408/25/2024 5:31 PM Lizzy Neumann RNVision - Corrective KbzobeQvlxrex46/14/2025 5:31 PM Lizzy Neumann RNClothingPants;Jacket/coat;Shirt108/25/2024 5:31 PM Lizzy Neumann RNPatijeniffer ElectronicsCell phone;Spifkmf84/14/2025 5:31 PM Lizzy Woodward RN * Patient Belongings Sent HomeQuestionAnswerEntry DateAuthorBelongings Sent Home No iciubrvtdf32/14/2025 5:31 PM Lizzy Neumann RN * Patient Belongings SecuredQuestionAnswerEntry DateAuthorBelongings Secured in Safe or LockerNo vugphwfgzt06/14/2025 5:31 PM Lizzy Neumann RN * Medications Brought by patient?QuestionAnswerEntry DateAuthorMedications Brought by Patient?No06/24/2025 5:31 PM Lizzy Neumann RN * Risk of SuicideAnswerEntry DateAuthorNegative Sodzqt1206/24/2025 5:31 PM Lizzy Woodward RN * Environmental MonitoringQuestionAnswerEntry DateAuthorIs the room temperature within range?68 - 75 07/02/2025 9:09 AM Davi Ignacio RNIs the room humidity within range?20 - 60 %07/02/2025 9:09 AM Davi Ignacio RN * Procedure LocationQuestionAnswerEntry DateAuthorProcedure LocationNon-Invasive Cjzzztdrjh36/22/2025 9:09 AM Davi Ignacio RNTEE Probe Insertion Lbuf33569 07/02/2025 9:34 AM Davi Ignacio RNBubble Study YklczhccaNha25/22/2025 9:42 AM Davi Ignacio RNTEE Probe Removal Yodl6469057/22/2025 9:47 AM Davi Morales RNProbvandana StatusProbe Clean07/02/2025 9:47 AM Davi Ignacio RNCase Performed InProcedure Room A109/02/2024 9:09 AM Davi Ignacio RN * ReligionQuestionAnswerEntry VnqoSkjkvfJkgvoetdJrxmgfph60/14/2025 5:31 PM Lizzy Woodward RN * Ability to Answer Admission Screening QuestionsQuestionAnswerEntry DateAuthor Able to Answer Screening Questions?Yes06/24/2025 5:31 PM Lizzy Neumann RNEligible for Virtual Nurse Admission/Discharge/IsrebgvdhWi14/14/2025 5:31 PM Lizzy Neumann RNPossible Candidate for Virtual Nursing? (VCN Nurse Only)No06/24/2025 5:31 PM Lizzy Neumann RN * Violence/Aggression Assessment Checklist (VAAC)QuestionAnswerEntry DateAuthor History of IarrurlyVn46/14/2025 5:31 PM Lizzy Neumann, RNUncooperative No06/24/2025 5:31 PM Lizzy Neumann, RNVerbal OmucbAj4306/24/2025 5:31 PM Lizzy Neumann, RNHostile/Attacking with YfefjstSs32/14/2025 5:31 PM Lizzy Woodward, BURiryhnzPk31/14/2025 5:31 PM Lizzy Neumann, RN Person Being LaugcvwePjlzxln85/14/2025 5:31 PM Lizzy Neumann, RN Assaultive/QhoafbrgvVk70/14/2025 5:31 PM Lizzy Neumann, RNViolence Screening Risk Intervention Ekgax52108/25/2024 5:31 PM Lizzy Neumann, RN Violence Screening SUB Risk Fojlh123 5:31 PM Lizzy Neumann, RN * Twan ScaleQuestionAnswerEntry DateAuthorSensory Yzfeknilvba003/23/2025 8:43 AM Ana Chacon, LBDhuppbjt844/23/2025 8:43 AM Ana Chacon, RN Uhbqfxzz842/23/2025 8:43 AM Ana Chacon, ZNRwtqnozq392/23/2025 8:43 AM Ana Chacon, BSWyjdwlckp835/23/2025 8:43 AM Ana Chacon, RN Friction & Dvrzf35709/03/2024 8:43 AM Ana Chacon, RNBraden Score20 07/03/2025 8:43 AM Ana Chacon, RNSkin Risk LevelNo Risk07/03/2025 8:43 AM Ana Chacon, RN * Behavior LevelQuestionAnswerEntry TwusJmsbvmLaivhylsJZA80/14/2025 5:31 PM Lizzy Woodward, RN * H&V Procedure PerformedAnswerEntry XdjeTryckrVRP89/22/2025 9:09 AM Davi Ignacio RN * IntegumentaryQuestionAnswerEntry DateAuthorMucous EgligglssYBQ69/23/2025 8:43 AM Ana Chacon, RNSkin Temperature / ZycqzqcnVKP76/23/2025 8:43 AM Ana Roberts, RNHydrationDecreased lgqvup1409/03/2024 8:43 AM Ana Chacon, JSZirdvttkfdtiqF50/23/2025 8:43 AM Ana Chacon, RNSkin Color Pale07/03/2025 8:43 AM Ana Chacon, RN * Skin InterventionsQuestionAnswerEntry DateAuthor$ Skin InterventionsElevate heels;Eeyfcgbtbypa00/23/2025 8:43 AM Ana Chacon RNSleep Surface (Bed)Hill-Rom (Advanta 2 and VersaCare) Pressure Redistribution Mattress 07/03/2025 8:43 AM Ana Chacon RNLow Risk InterventionsBraden Scale Prevention Strategies /22/2025 9:42 PM Shannen Fontana RN * Numeric Pain ScaleQuestionAnswerEntry DateAuthorPain Score4/10109/03/2024 11:37 AM Ana Chacon, RN * PainQuestionAnswerEntry DateAuthorPAIN: Pain BtntjrgyJzsp70/23/2025 8:43 AM Ana Chacon, Marcella Location LshifjdwvvLmfeuyhau02/22/2025 9:42 PM Shannen Garcia, Marcella Scale Used? (S)Irbfmvc7107/03/2025 8:43 AM Ana Chacon RNPain Description (Q)Aching;Bsoozaks42/22/2025 9:42 PM Shannen Fontana RNPain InterventionsMedication (See MAR)07/03/2025 8:43 AM Ana Roberts, RN * Oxygen TherapyQuestionAnswerEntry DateAuthorO2 DeviceRoom air07/03/2025 1:44 PM Katrina Schuster Flow Rate (l/min) 9:31 AM Davi Ignacio RN * RespiratoryQuestionAnswerEntry DateAuthorRespiratory (WNL)X109/03/2024 8:43 AM Ana Chacno, RNRespiratory BdpspkpAHN75/23/2025 8:43 AM Ana Chacon, RNBreath Sounds - Bilat AnteriorDiminished bases07/03/2025 8:43 AM Ana Chacon, RNBreath Sounds - Bilat PosteriorDiminished bases 07/02/2025 5:03 PM Lena Perez RRespiratory (Other)RA, pt denies SOB06/24/2025 5:31 PM Lizzy Neumann, RN * CardiovascularQuestionAnswerEntry DateAuthorHeart UbvbmdDZO44/23/2025 8:43 AM Ana Chacon, LCWkdthjkbxufoqdE22/23/2025 8:43 AM Ana Chacon, RNRUE Peripheral PulsesWNL (2+)07/03/2025 8:43 AM Ana Chacon, RNLUE Peripheral PulsesWNL (2+)07/03/2025 8:43 AM Ana Chacon, RNRLE Peripheral Pulses1+07/03/2025 8:43 AM Ana Chacon, RNLLE Peripheral Pulses1+07/03/2025 8:43 AM Ana Chacon, RNCapillary RefillWNL 07/03/2025 8:43 AM Ana Chacon, EDRxuqlwkuNJV70/23/2025 8:43 AM Ana Roberts, RNCardiovascular (Other)AICD109/02/2024 5:03 PM Lena Perez R * EdemaQuestionAnswerEntry DateAuthorEdema XdsqiwleKSF58/23/2025 8:43 AM Ana Roberts, RNEdema QualityPitting 1+07/02/2025 9:42 PM Shannen Fontana, RN * Neurological / NeuromuscularQuestionAnswerEntry DateAuthorWakefulnessWNL 07/03/2025 8:43 AM Ana Chacon, JYZzfsumglrZXY56/23/2025 8:43 AM Ana Roberts, RNMotor RT Upper Ytjgzbvgw329/23/2025 8:43 AM Ana Chacon, RNMotor LT Upper Rhsjjqdyz844/23/2025 8:43 AM Ana Chacon, RNMotor RT Lower Pcbnfgznk767/23/2025 8:43 AM Ana Chacon, RNMotor LT Lower Pfdcdggst305/23/2025 8:43 AM Ana Chacon, RNLanguageWNL 07/03/2025 8:43 AM Ana Chacon, PUMarillbhFZV94/23/2025 8:43 AM Ana Roberts, RNNeurological / TnuxvxohedyqvFGF20/23/2025 8:43 AM Ana Roberts, RNLevel of YqnrrgyuvszisFVS95/23/2025 8:43 AM Ana Chacon, QJKjixjdajnfuBIA33/23/2025 8:43 AM Ana Chacon, RNNeuro (Other)gen. ofctlqim91/22/2025 9:42 PM Shannen Fontana, RNBehavior InterventionsProvided Oegkoiy3707/03/2025 8:43 AM Ana Chacon, RN * GastrointestinalQuestionAnswerEntry YqqaFmxxtkAzbwexcmezdzupenPRN98/23/2025 8:43 AM Ana Chacon, XHBdyfgpmANG00/23/2025 8:43 AM Ana Chacon, RNBowel KesuseUSK74/23/2025 8:43 AM Ana Chacon, RNContinence (Stool)WNL109/03/2024 8:43 AM Ana Chacon, RNGI AmjbshewLWI56/23/2025 8:43 AM Ana Chacon, RNGI (Other)regular diet06/24/2025 5:31 PM Lizzy Woodward, RN * GenitourinaryQuestionAnswerEntry DateAuthorUrine Description, VoidedDark yellow/dqubetifonar91/23/2025 8:43 AM Ana Chacon, RNGenitourinaryX 07/03/2025 8:43 AM Ana Chacon, RNContinence (Urine)WNL109/03/2024 8:43 AM Ana Chacon, RNUrinary AerxuxyzJWY21/23/2025 8:43 AM Aan Chacon, RNGU (Other)Innbhz5407/03/2025 8:43 AM Ana Chacon, RN * Delirium AssessmentQuestionAnswerEntry KvpyLwtgnjQcvuuucmztolga877/23/2025 8:43 AM Ana Chacon, RNInappropriate Woeajavo889/23/2025 8:43 AM Ana Roberts, RNInappropriate Jnzxbwfrcujcn805/23/2025 8:43 AM Ana Chacon, RNIllusions / Hrshicwedazwow302/23/2025 8:43 AM Ana Chacon, RNPsychomotor Upmloegbmxr960/23/2025 8:43 AM Ana Chacon, RNBehavior Assessment Iytca78609/03/2024 8:43 AM Ana Chacon, RN * Fall Risk Assessment (Adult)QuestionAnswerEntry DateAuthorMobility (Gait)2 07/03/2025 8:43 AM Ana Chacon, [place] History (past 6 months)5 07/03/2025 8:43 AM Ana Chacon, OFIqn32609/03/2024 8:43 AM Ana Chacon, RNIncontinence, Bowel & Mudfzsr818/23/2025 8:43 AM Ana Chacon, CHIwzfrtlzzlz202/23/2025 8:43 AM Ana Chacon, RNPatient Care Sqdvbpzxx103/23/2025 8:43 AM Ana Chacon, RNMobility (Assistance)2 07/03/2025 8:43 AM Ana Chacon, RNCognition (Awareness) 8:43 AM Ana Chacon, [place] Risk Gijqm9352/23/2025 8:43 AM Ana Chacon, RNMobility (Sensory Deficit) 8:43 AM Ana Chacon RNUrgency / Ybqyuotun402/23/2025 8:43 AM Ana Chacon RNCognition (Impulsiveness) 8:43 AM Ana Chacon RNCognition (Limitations) 8:43 AM Ana Chacon RNFall Risk Level (Adult)Automatically High Risk07/03/2025 8:43 AM Ana Chacon RN * Fall Interventions (Adult)QuestionAnswerEntry DateAuthorHigh Risk Interventions (Adult)Basic safety interventions initiated, PLUS:;Yellow Fall Precaution wrist band;Yellow non-skid socks;Bed alarm07/03/2025 8:43 AM Ana Roberts RN * Acceptable Level of Pain?AnswerEntry KnhtSseotl372/14/2025 5:31 PM Lizzy Woodward RN * Pain Interventions at HomeAnswerEntry KgckWzcnzaxlufvoj53/14/2025 5:31 PM Lizzy Woodward RN * Vital SignsQuestionAnswerEntry DateAuthorBP PositionSemi-Hbybuvl4707/03/2025 1:44 PM Ida Schuster Locationleft arm07/03/2025 1:44 PM Alexandra Ricketts (mmHg)9007/03/2025 1:44 PM Honey Schuster * Time Out ([place] Protocol)QuestionAnswerEntry DateAuthorPre-Sedation Vital Sign ThqkvbotzhavTvdrkumtk70/22/2025 9:29 AM Davi Ignacio RNProcedure to be HvikjhpfdZUY55/22/2025 9:29 AM Davi Ignacio RNTime OutConfirmed 07/02/2025 9:29 AM Davi Ignacio RN * SedationQuestionAnswerEntry DateAuthorSedation Encbs71209/02/2024 9:48 AM Davi Morales RN * CommentsQuestionAnswerEntry DateAuthorCommentsreport to floor nurse07/02/2025 9:56 AM Davi Ignacio RN * Procedure PersonnelQuestionAnswerEntry DateAuthorProcedural Attending Pin # [id number]/02/2024 9:09 AM Davi Ignacio RNProcedural Attending Name (last, first)Vuxojq9607/02/2025 9:09 AM Davi Ignacio, CACgvwkxDnocbcz52/22/2025 9:09 AM Davi Ignacio RNNurse #4Dkomtbr93/22/2025 9:09 AM Davi Ignacio RN * OUTPUTQuestionAnswerEntry TzlaGseeetIhppt97236/23/2025 8:49 AM Ana Chacon RNUrine Incontinence Ncjwzklnvz559/17/2025 10:15 AM Kimmie Hammer, PCNAStool Incontinence Lvnyqdrdvk479/22/2025 4:22 AM ESTCourtland, CatherineStool Uphxwbrevp187/23/2025 1:46 PM ESTBargadeshawn, MariahUrine Tsizmvboao119/23/2025 1:46 PM Mariely, MariahStool SourceBowel movement 07/03/2025 1:46 PM Mariely MariahStool DescriptionLarge;Tarry;Pasty 07/03/2025 1:46 PM Yanique Schusterh * INTAKEQuestionAnswerEntry DateAuthorP.O.4717907/03/2025 8:43 AM Ana Chacon RN% Meal Kxqoaqbu796%07/03/2025 8:43 AM Ana Chacon RN Additional Intake?Yes06/26/2025 7:54 AM Kimmie Hammer, PCNA * Advance DirectivesQuestionAnswerEntry DateAuthorType of Advance Directive Living Will06/24/2025 5:31 PM Lizzy Neumann RNAdvance Directives?Yes - paper copy with ypcwcyx0506/24/2025 5:31 PM Lizzy Neumann RN * Transfer Note (Completed by Sending Unit)QuestionAnswerEntry DateAuthorSending RN Name, Unit & Contact #KARIN Souza06/29/2025 5:51 PM Libby Orosco RN Transferring to:[address]06/29/2025 5:51 PM Libby Orosco RNSBAR Report Given to:KARIN Medina via Epic chat06/29/2025 5:51 PM Libby Orosco RN * WVQJ0CosbeyAwklu VadnAcegdq0045/22/2025 9:51 AM Davi Ignacio RN * Patient Collaborative GoalsQuestionAnswerEntry DateAuthorHospital Stay Collaborative GoalRemain HDS until DC07/03/2025 8:43 AM Ana Chacon RNMet/Ongoing/Not MqnYcu2607/03/2025 2:16 PM Latoya Lujan RNDaily Collaborative GoalProper pain yxwmgro0207/03/2025 8:43 AM Ana Chacon RNMet/Not PrrCdk1207/03/2025 2:16 PM Latoya Lujan RNAdd a Second Daily Goal?Yes07/02/2025 7:06 AM Cookie Farley * Body PiercingQuestionAnswerEntry DateAuthorBody Piercing?No06/29/2025 3:55 PM Jdoy Kimble RN * Second Daily Collaborative GoalQuestionAnswerEntry DateAuthorSecond Daily Collaborative GoalPatient's blood glucose will be etyecaraqm19/22/2025 7:06 AM Monty Farley/Ongoing/Not MetNot Met07/02/2025 7:06 AM Cookie Nolasco * Somnolence / Sedation ScaleQuestionAnswerEntry DateAuthorSomnolence / Sedation Vzjkr402 8:15 AM Aga Jaimes RN * Functional ScreenQuestionAnswerEntry DateAuthorDecline in dzwqntksHo14/14/2025 5:31 PM Lizzy Neumann RNDecline in activities of daily living (ADL)No 06/24/2025 5:31 PM Lizzy Neumann RNDecline in speech, cognition, or wsttacfimuCc43/14/2025 5:31 PM Lizzy Neumann RN * Psychosocial ScreenQuestionAnswerEntry DateAuthorGroup Home / Halfway / Psychiatric Facility?No06/24/2025 5:31 PM Lizzy Neumann [...] RNContact NameRoseann 06/24/2025 5:31 PM Lizzy Neumann QJUgeotvifwaqjAikg75/14/2025 5:31 PM [facility] Mnxoga398667234355/14/2025 5:31 PM Lizzy Neumann RN * Patient LocationQuestionAnswerEntry DateAuthorPatient Zaggtvat662/22/2025 8:00 PM Shannen Fontana RN * Gricelda ScaleQuestionAnswerEntry DateAuthorBaseline Vitals (BP)159/89 06/29/2025 5:19 PM Libby Orosco, ZPOfxzaclk849/22/2025 9:56 AM Davi Ignacio RNRespirations207/02/2025 9:56 AM Davi Ignacio RNCirculation2 07/02/2025 9:56 AM Davi Ignacio RNConsciousness 9:56 AM Davi Morales RNO2 Emcywbbjgd132/22/2025 9:56 AM Davi Ignacio RNAldrete Ffekl75509/02/2024 9:56 AM aDvi Ignacio RN * Drug / AlcoholQuestionAnswerEntry DateAuthorCounseling Desired?No06/24/2025 5:31 PM Lizzy Neumann RNCurrent Social Drug Use?No06/24/2025 5:31 PM Lizzy Neumann RNCurrent ETOH Use?Yes06/24/2025 5:31 PM Lizzy Neumann RN documented in this encounter Discharge Summaries * Joseph Garcia MD - 07/03/2025 8:08 PM EST DISCHARGE SUMMARY [address] [address] Manolo Roche Date of : 1935 89 year old male Attending No att. providers found Date of Admission 06/24/2025 Date of Discharge 07/03/25 Final Diagnosis: MSSA bacteremia Discharge Procedure Orders INTERROGATION DEVICE EVAL, IN PERSON, SINGLE, DUAL, MULTIPLE LEAD IMPLANTABLE DEFIBRILLATOR SYSTEM PRE-ADMISSION TESTING CONSULT Referral Priority: Routine Referral Type: Service Level Authorization Referral Location: [facility] PRE ADMISSION TESTING Number of Visits Requested: 1 Expiration Date: 06/28/26 NEUROSURGERY SERVICE REQUEST Referral Priority: Routine Referral Type: Service Level Authorization Referral Location: [facility] NEUROSURGERY Number of Visits Requested: 3 Expiration Date: 07/03/26 HOME CARE SERVICE REQUEST Referral Priority: Routine Referral Type: Home Health Referral Referral Location: [facility] Number of Visits Requested: 3 Expiration Date: 07/03/26 Future Appointments Date Time Provider Department Center 08/01/2025 11:00 AM Jacqueline Baptiste MD ID [id number] [facility] Condition at Discharge improved Symptoms to look [...] 2 Tablets by mouth 3x Daily. Creon 20964-90329 units Cpep Generic drug: Pancrelipase (Dsd-Rvlf-Mbrw) Take 24,000 Units by mouth 3 times [...] Your Medications These medications were sent to [facility] Retail Meds to [facility] [address] [place] [address] Hours: 8am-7pm M-F, 10am-2pm Sat 7:45am-2pm Wednesday acetaminophen extra strength 500 MG Tabs tablet Creon 35986-57754 units Cpep FeroSul 325 (65 Fe) MG [...] Dear Manolo Roche, You were hospitalized at [facility] from 06/24/2025 to 07/03/25 for a blood infection. Please follow up with the infectious disease doctor for ongoing management. You will need IV antibiotics for 6 weeks. Please also follow up with the spine surgeons for your back pain. Please follow up with your e ndocrinologist for ongoing diabetes management. Please follows up with your urologist. Sincerely, Joseph Garcia MD Hospitalist [facility] documented in this encounter Medications at Time of Discharge MedicationSigDispense QuantityRefillsLast FilledStart DateEnd Date Pancrelipase, Jrp-Lqjl-Wsnz, 41698-46028 units CPEP Take 24,000 Units by mouth 3 times daily (with meals). 270 Capsule 07/03/2025 3:09 PM EST07/03/2025 ferrous sulfate 325 mg (65 mg elemental) tablet Take 1 Tablet by mouth every other day. 45 Tablet 07/03/2025 3:09 PM EST lidocaine (LIDODERM) 4 % PTCH patch Place 1 Patch on the skin every 24 hours. To back pain 30 Patch 07/03/2025 3:09 PM EST/ acetaminophen (TYLENOL) 500 MG tablet Take 2 [...] 5 days. 20 Tablet 07/03/2025 3:09 PM EST12/23/documented as of this encounter Progress Notes * [...] Q24H Antibiotic senna, 8.6 mg, Oral, BID hkcmtkf-lvagmq-higgkgvk, 24,000 Units, Oral, 3x Daily with Meals [...] procedure: CARD TRANSESOPH ECHO W/ANESTH. Accession no: [id number] Procedure Summary Left ventricular systolic function is [...] Will sign off Jacqueline Baptiste MD Pager [phone] or by bitHound Medical decision-making in this case included the following: I personally discussed management of the case or recommendations with primary team or another consulting team. * Lena Bello - 07/02/2025 3:20 PM EST Lamin gunderson'ashwini as ordered. * Joseph Garcia MD - 07/02/2025 2:08 PM EST Hospital Medicine Progress Note Manolo Roche Age [age] year old male [id number] Admitted 06/24/2025 5:46 PM Hospital Day: [...] 2019 for IPMN. Follows with endocrinology at [facility]. Labile BG. Home prandial novolog 5 + [...] kidney disease (HCC) - initially presented to [facility] with an DENISHA (Scr 1.7); since resolved [...] a total of 54 minutes which includes xgfu-hd-uqpc and qgd-ruaa-jc-face time spent on preparing to see the [...] 58 16 97 % Room air -- 07/02/25 0957 -- -- -- -- -- -- Room air -- 07/02/25 0951 156/76 -- -- 60 12 99 % -- -- 07/02/25 0948 167/99 -- -- 60 12 99 % -- -- 07/02/25 0945 158/81 -- -- 60 17 99 % -- -- 07/02/2542 162/78 -- -- 60 12 99 % -- -- 07/02/25 0939 164/77 -- -- 62 13 98 % -- -- 07/02/25 0936 161/79 -- -- 62 13 98 % -- -- 07/02/25 0933 158/79 -- -- 63 17 98 % -- -- 07/02/25 0931 -- -- -- -- -- -- Nasal cannula 2 07/02/25 0930 158/84 -- -- 62 15 100 % -- -- 07/02/25 0927 158/72 -- -- 61 13 97 % -- -- 07/02/25 0924 158/75 -- -- 60 11 97 % -- -- 07/02/25 0923 163/92 -- -- 60 11 98 % -- -- 07/02/25 0920 161/83 -- -- 60 14 97 % -- -- 07/02/25 0915 154/77 -- -- 60 10 98 % [...] Q24H Antibiotic senna, 8.6 mg, Oral, BID zuwrhsw-rmqgay-pufdsssl, 24,000 Units, Oral, 3x Daily with Meals [...] course at discharge Jacqueline Baptiste MD Pager [phone] or by Cytodyn chat * Jose Núñez DO - 07/02/2025 9:22 AM EST BRIEF NATIONAL SALES MANAGER NOTE: Code status reversed to full code for procedure then will change back to DNR CCA after procedure. Pt in full agreement. Jose Núñez DO Cardiovascular Disease Fellowship, PGY6 [facility] * Cookie Boyd - 07/02/2025 1:44 AM EST At 0111, informed Dr. Cotto via secure text chat that patient's fzhhtvz=[id number] and that patient is now NPO after [...] Q24H Antibiotic senna, 8.6 mg, Oral, BID pfxgmvn-nxrttr-gevpmxoi, 24,000 Units, Oral, 3x Daily with Meals [...] course at discharge. Jacqueline Baptiste MD Pager [phone] or by bitHound * Maribel Romero MD - 07/01/2025 12:00 PM EST Hospital Medicine Progress Note Manolo Roche Age [age] year old male [id number] [id number] Admitted 06/24/2025 5:46 PM Hospital Day: [...] osteomyelitis, discitis, and ICD-associated infection. Transferred to [facility] for advanced imaging and definitive source evaluation. 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 Follows with endocrinology at [facility]. Labile BG - uncontrolled; A1C 12.8% in [...] kidney disease (HCC) - initially presented to [facility] with an DENISHA (Scr 1.7); since resolved [...] Manolo Roche Age [age] year old male [id number] Admitted 06/24/2025 5:46 PM Hospital Day: [...] osteomyelitis, discitis, and ICD-associated infection. Transferred to [facility] for advanced imaging and definitive source evaluation. [...] 06/24 1/ [facility]PC - Repeat Bcx2 06/26 12 [facility] [...] 2019 for IPMN. Follows with endocrinology at [facility]. - uncontrolled; A1C 12.8% in 04/2025 - [...] kidney disease (HCC) - initially presented to [facility] with an DENISHA (Scr 1.7); since resolved [...] Temporal 61 18 97 % Room air 06/29/252022 112/60 97.8 ??F (36.6 ??C) Temporal 90 [...] Q24H Antibiotic senna, 8.6 mg, Oral, BID dswckql-gxiphz-jkeevzwr, 24,000 Units, Oral, 3x Daily with Meals [...] with attending Dr. Nick Baptiste MD Pager [phone] or by bitHound Medical decision-making in this case included the [...] GERD who presented initially on 06/24 to [facility] for lower back pain following a recent [...] the fellow's note. Jacqueline Baptiste MD Pager [phone] or by Cytodyn chat * Maribel Romero MD - 06/29/2025 12:19 PM EST [facility] Medicine Progress Note Manolo Roche Age [age] year old male [id number] [id number] Admitted 06/24/2025 5:46 PM Hospital Day: [...] osteomyelitis, discitis, and ICD-associated infection. Transferred to [facility] for advanced imaging and definitive source evaluation. 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 Follows with endocrinology at [facility]. - uncontrolled; A1C 12.8% in 04/2025 - [...] kidney disease (HCC) - initially presented to [facility] with an DENISHA (Scr 1.7); since resolved [...] Manolo Roche Age [age] year old male [id number] [id number] Admitted 06/24/2025 5:46 PM Hospital Day: [...] osteomyelitis, discitis, and ICD-associated infection. Transferred to [facility] for advanced imaging and definitive source evaluation. 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 Follows with endocrinology at [facility]. - uncontrolled; A1C 12.8% in 04/2025 - [...] kidney disease (HCC) - initially presented to [facility] with an DENISHA (Scr 1.7); since resolved [...] epidural abscess is felt less likely Microbiology: 06/20 Blood cx MSSA in OSH (partial [...] GERD who presented initially on 06/24 to [facility] for lower back pain following a recent [...] the fellow's note. Jacqueline Baptiste MD Pager [phone] or by Cytodyn chat * Lady Thomas RN - 06/28/2025 [...] implanted on 05/24/[address] Root at [facility]. Lead Status: Kee RA and RV leads implanted on 05/24/[address] Root at [facility]. Device Indication: VT BATTERY VOLTAGE: 7.7-8.2 years [...] Manolo Roche Age [age] year old male [id number] AC8-510/1 Admitted 06/24/2025 5:46 PM Hospital Day: [...] osteomyelitis, discitis, and ICD-associated infection. Transferred to [facility] for advanced imaging and definitive source evaluation. 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 Follows with endocrinology at [facility]. - uncontrolled; A1C 12.8% in 04/2025 - [...] kidney disease (HCC) - initially presented to [facility] with an DENISHA (Scr 1.7); since resolved [...] insulin glargine, 10 Units, Subcutaneous, At Bedtime eddtbuq-jndbvy-fcelissm, 24,000 Units, Oral, 3x Daily with Meals [...] blood cultures - MSSA 06/24 blood cultures 1/ bottles MSSA 06/26 blood cultures x 2 [...] with attending Dr. Nick Baptiste MD Pager [phone] or by bitHound Medical decision-making in this case included the [...] SW will pass to JUSTIN Samson LISW-S [phone] * Maribel Romero MD - 06/26/2025 1:19 PM EST Hospital Medicine Progress Note Manolo Roche Age [age] year old male [id number] AC8-510/1 Admitted 06/24/2025 5:46 PM Hospital Day: [...] osteomyelitis, discitis, and ICD-associated infection. Transferred to [facility] for advanced imaging and definitive source evaluation. 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 Follows with endocrinology at [facility]. 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 Nick Baptiste MD Pager [phone] or by bitHound Medical decision-making in this case included the [...] implanted on 05/24/[address] Root at [facility]. Lead Status: Sweet RA and RV leads implanted on 05/24/[address] Root at [facility]. Device Indication: VT BATTERY VOLTAGE: 7.3-8.2 Years [...] Patient name: Manolo Roche : 1935 Device Hook Loader: Sweet Device Model#: Linn [id number] Serial#: [id number] (Conditional) RA Model#: Sweet ULTIPACE/[id number] / 52cm Serial#: [id number] (Conditional) RV Model#: Sweet Durata 7122QS / 58cm Serial#: [id number] (Conditional) LV Model#: N/A Serial#: N/A CXR [...] scan. -Will forward for review/approval. Cosigned by aLura Paulino DO at 06/25/2025 3:30 PM EST Associated attestation - Laura Paulino DO - 06/25/2025 3:30 PM EST I personally reviewed all aspects of the device interrogation and agree with the documentation. Reviewed CXR. OK to proceed. Dr. Nicolas * Doreen Griffith LISW - 06/25/2025 1:27 PM EST 06/25/25 [...] determining dc planning needs JUSTIN Pelaez, ROSA-S [phone] * Maribel Romero MD - 06/25/2025 11:36 AM EST Hospital Medicine Progress Note Manolo Roche Age [age] year old male [id number] AC8-510/1 Admitted 06/24/2025 5:46 PM Hospital Day: [...] osteomyelitis, discitis, and ICD-associated infection. Transferred to [facility] for advanced imaging and definitive source evaluation. 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 Follows with endocrinology at [facility]. - uncontrolled; A1C 12.8% in 04/2025 - [...] kidney disease (HCC) - initially presented to [facility] with an DENISHA (Scr 1.7); since resolved [...] 8:37 AM Referring Provider: Prashant Hidalgo Room: [place] [address] Name: Manolo Roche :1935 male 89 year [...] Maribel Romero MD 8 Units at 07/01/25 222 [START ON 07/03/2025] enoxaparin (LOVENOX) 40 MG/0.4ML [...] release tablet 7.5 mg Oral Q4H PRN Marbiel Romero MD 7.5 mg at 07/01/25 2338 senna (SENOKOT) tablet 8.6 mg Oral BID Maribel Romero MD 8.6 mg at 07/01/25 2220 oxyCODONE immediate release tablet 5 mg Oral Q6H PRN Maribel Romero MD 5 mg at 07/01/25 0527 gtnqgbc-tbjvxk-hfsapqsm (CREON) 28171 units capsule 24,000 Units Oral 3x Daily with Meals Vikas Colvin DO 24,000 Units at 07/01/25 1746 polyethylene [...] hours Sudarshan Lovett MD 1 Patch at 06/30/25 2110 ferrous sulfate 325 mg (65 mg elemental) tablet 325 mg Oral 2x Daily AC Sudarshan Lovett MD 325 mgat 07/01/25 1746 dextrose 10 % iv infusion 12.5 g [...] Bedtime Sudarshan Lovett MD 40 mg at 07/01/25 222 tamsulosin (FLOMAX) capsule 0.4 mg Oral Daily Sudarshan Lovett MD 0.4 mg at 07/01/25927 metoprolol (TOPROL-XL) 24 hour tablet 12.5 mg Oral At Bedtime Sudarshan Lovett MD 12.5 mg at 07/01/25 222 acetaminophen (TYLENOL) tablet 1,000 mg Oral 3x Daily Sudarshan Lovett MD 1,000 mg at 07/01/25 1746 ondansetron (ZOFRAN) 4 MG/2ML injection 4 mg [...] also reviewed at this time. The physical examination,asbelow, was then performed. Vital Signs Reviewed Mouth and Pharynx : Oropharynx, clear Cardiac: regular rate and rhythm Pulmonary: Normal work of breathing Neurological: normal without focal findings Abdomen: Abdomen soft, non-tender. BS normal. Patient will undergo sedation with the assistance of anesthesia physician/SOFT DRINK POWDER MIXER/AA team. Please see corresponding note for full [...] OSH for MSSA bacteremia. Patient presented to [facility] on 06/20/2025 for bilateral low back pain. [...] thoracic/lumbar spine; however, apparently MRI machine at [facility] is not compatible with patient's biventricular ICD. Options were totreat empirically for 6 weeks vs transfer to a facility with a compatible MRI machine. Decision made to transfer to [facility]. On bedside evaluation, patient was resting comfortably [...] osteomyelitis, discitis, and ICD-associated infection. Transferred to [facility] for advanced imaging and definitive source evaluation. 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 Follows with endocrinology at [facility] [place]. - uncontrolled; A1C 12.8% in 04/2025 - [...] kidney disease (HCC) - initially presented to [facility] with an DENISHA (Scr 1.7); since resolved [...] NOTE Date: 07/03/2025 Time: 1057 Patient location: 8E Indication for line: IV ABX Consent obtained. [...] documented in this encounter Consult Notes * Jacobfelicia Alvina, OT - 07/03/2025 10:47 AM EST OCCUPATIONAL [...] Dep Max Mod Min CG CS DS SD I Set-Up Cues Comment Feeding x Grooming/ [...] therapy, OOBTC for 1 hour, NOT to mobilize without staff DME: With Patients permission ordered no equipment via Cytodyn Order. If any questions contact [facility] DME Provider at [phone]. 07/03/2025 6 Clicks Daily Activity OT Help [...] Guard Assist/Supervision 4 - Non = Modified Haralson/Independent ASSESSMENT: Patient is functionally appropriate for discharge [...] NA = Not Assessed, I = Independent, SD = Modified Independent, Sup = Supervised, Set [...] Max Mod Min CG CS Sup DS SD I Comment Supine to sit X Increased [...] With Patients permission ordered no equipment via Cytodyn Order. If any questions contact [facility] DME Provider at [phone]. 07/03/2025 6 Clicks Basic Mobility PT Difficulty [...] NA = Not Assessed, I = Independent, SD = Modified Independent, Sup = Supervised, Set [...] anything OBJECTIVE: Appearance: Supine in bed Hospital gown IV Hospital pants donned Kimble Behavior: Awake Alert Cooperative with education and encouragement Irritable Follows simple commands consistently Pain: Site/Location: back; Pain Scale: tolerable /10 Pain Relief Interventions Implemented: Positioning and RN aware and reports patient received medication according to time schedule Mobility NA Dep Max Mod Min CG CS Sup DS SD I Comment Supine to sit X Transfers [...] With Patients permission ordered no equipment via Cytodyn Order. If any questions contact [facility] DME Provider at [phone]. 06/29/2025 6 Clicks Basic Mobility PT Difficulty [...] NA = Not Assessed, I = Independent, SD = Modified Independent, Sup = Supervised, Set [...] Dep Max Mod Min CG CS DS SD I Set-Up Cues Comment Feeding NPO Grooming/ [...] With Patients permission ordered no equipment via Cytodyn Order. If any questions contact [facility] DME Provider at [phone]. 06/29/2025 6 Clicks Daily Activity OT Help [...] Guard Assist/Supervision 4 - Non = Modified Haralson/Independent ASSESSMENT: Patient is functionally appropriate for discharge [...] NA = Not Assessed, I = Independent, SD = Modified Independent, Sup = Supervised, Set up = Physical Assistance for Set-up Only, Min = Minimal Assistance, Mod = Moderate Assistance, Max = Max assistance; Dep = Dependent; AROM = Active Range of Motion;PROM=Passive Rangeof Motion; MMT = Manual Muscle Test; Shld= Shoulder; Add = Adduction; Abd = Abduction * StephenHollieJennifer - 06/29/2025 8:26 AM EST Images from the original note were not included. Dietitian vs DietaryTech: Dietary TechDiet Stock Roller Nutrition Screening Reason for visit: LOS 5 [...] follow up. Will continue to follow, Jennifer Mitchell, Strategic Consultant Pager#[phone] Time spent on patient care: 15 minutes [1] No past medical history on file. * Judi Galvez OTR/Flaca - 06/28/2025 2:45 PM EST Physical/Occupational Therapy [...] ventricular ICD so he was transferred to [facility] on 06/24. MRI completed today which revealed [...] Units At Bedtime senna 8.6 mg BID fnzjjer-pxbxmg-zqdqoneu 24,000 Units 3x Daily with Meals polyethylene [...] conversational RUE: 5/5 shoulder abduction, elbow flexion/extension, memorial designer, IO LUE: 5/5 shoulder abduction, elbow flexion/extension, memorial designer, IO RLE: 5/5 hip flexion, knee flexion/extension, [...] concerns. Joseph Weston PA-C Neurological Surgery Pager: [phone] 06/28/2025 - 11:53 AM Split/Shared Documentation I [...] ofBarrett's esophagus (several years ago), transferred from [facility] to [facility] for evaluation of diskitis- osteomyelitis and ICD compatible MRI testing. 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 Much of his care at different hospitals in [place] - without access to his op reports [...] Bravo MD, MS Gastroenterology Fellow. Consult Pager [phone] Discussed with GI attending, Dr. Alirio Mitchell MD Primary team updated yes. Thank you for involving us in the care of this patient. I appreciate the excellent care from the nursing staff, and retail support manager. Dictated using voice recognition software. Document may [...] MD Department of Gastroenterology & Hepatology [facility] [1] No past medical history on [...] MRI. 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 Chair alarm intact. Family at bedside. tax map technician entering room. DME: With Patients permission ordered no equipment via Cytodyn Order. If any questions contact [facility] DME Provider at [phone]. 6 Clicks Basic Mobility PT 06/25/25 Difficulty [...] NA = Not Assessed, I = Independent, SD = Modified Independent, Sup = Supervised, Set up = Physical Assistance for Set-up Only, Min = Minimal Assistance, Mod = Moderate Assistance, Max = Max assistance; Dep = Dependent; AROM = Active Range of Motion; PROM = Passive Range of Motion; MMT = Manual Muscle Test; LE = Lower Extremity * Alvina Joy OT - 06/25/2025 3:05 PM ESTAssociated Order(s): [...] Surgical History[2] SUBJECTIVE: Patient Subjective: Join the alliance party! (After therapist arrival, EP and XR present [...] Dep Max Mod Min CG CS DS SD I Set-Up Comment Feeding x Grooming/Hygiene x Anticipate standing at sink Bathing:UB x Simulated with functional reach Bathing:LB x Anticipate assist for distal BLEs/buttocks Dressing:UB x Simulated to don shirt Dressing: LB x Anticipate to don pants Toileting x Kimble Transfers/Bed Mobility: Assistance Level Dep Max Mod Min CG CS DS SD I Set-Up Comment Toilet Transfers x Anticipate [...] With Patients permission ordered no equipment via Cytodyn Order. If any questions contact [facility] DME Provider at [phone]. 6 Clicks Daily Activity OT 06/25/25 Help [...] Guard Assist/Supervision 4 - Non = Modified Haralson/Independent ASSESSMENT: Patient is functionally appropriate for discharge [...] NA = Not Assessed, I = Independent, SD = Modified Independent, Sup = Supervised, Set [...] for MSSA bacteremia Patient presented initially to [facility] on 06/20/2025 for lower back pain that [...] Bedtime Sudarshan Lovett MD 15 Units at 06/24/25 2300 ceFAZolin Sodium (ANCEF) 2,000 mg in sodium chloride 0.9 % 100 mL (V2B) 2,000 mg Intravenous Q8H Antibiotic Sudarshan Lovett MD 200 mL/hr at 06/25/25 0600 2,000 mg at 06/25/25 0600 lidocaine (LIDODERM) 4 % patch 1 Patch Transdermal Every 24 hours Sudarshan Lovett MD 1 Patch at 06/24/25 2146 ferrous sulfate 325 mg (65 mg elemental) [...] Lovett MD 40 mg at 06/25/25 08 lvphgtu-ktlpup-pfhvocyc (CREON) 03382 units capsule 48,000 Units Oral 3x Daily with Meals Sudarshan Lovett MD 48,000 Units at 06/25/25 0812 atorvastatin (LIPITOR) tablet 40 mg Oral At Bedtime Sudarshan Lovett MD 40 mg at 06/24/25 2141 aspirin EC tablet 81 mg Oral Daily Sudarshan Lovett MD 81 mg at 06/25/25 0812 tamsulosin (FLOMAX) capsule 0.4 mg Oral Daily Sudarshan Lovett MD 0.4 mg at 06/25/25 08 metoprolol (TOPROL-XL) 24 hour tablet 12.5 mg Oral At Bedtime Sudarshan Lovett MD 12.5 mg at 06/24/25 2141 acetaminophen (TYLENOL) tablet 1,000 mg Oral 3x [...] GERD who presented initially on 06/24 to [facility] for lower back pain following a recent [...] the fellow's note. Jacqueline Baptiste MD Pager [phone] or by bitHound Medical decision-making in this case included the following: I personally obtained corroborating history from a third alliance party (family member, outside facility etc) while evaluating patient. documented in this encounter Miscellaneous Notes * Home Health Care - Astorg[facility]ivian - 07/03/2025 1:58 PM EST [facility] NOTE Home infusion education provided to pts and grandson. They feel comfortable independently administering infusion at home. Claudia Gutierrez will provide home care - arrangements by CM. [facility] will be servicing this patient [phone]. [facility] Care will deliver to pts home this evening. Vivian Astorga RN Clinical Mission Coordinator [facility] [phone] or [phone] * Discharge Planning Note - Lana Rivas RN - 07/03/2025 11:10 AM EST Case Management CM attended multidisciplinary rounds for this patient and patient is medically ready for discharge at this time. Pts EDOD is 07/03/2025. CM is aware that patient will discharge home with [facility] for IV ATB and [facility] for [facility]. Cm is still waiting to confirm start of care for the patient with the [facility]. Pt has his PICC line. Pt still needs education with [facility] prior to discharge. CM will continue to follow for any other additional discharge planning needs that may arise. ADDENDUM: CM verified with Rachelle from [facility] that the SOC will be tomorrow afternoon. CM to update family. 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 Follows with endocrinology at [facility]. Labile BG. 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 Follows with endocrinology at [facility]. Labile BG. Home prandial novolog 5 + [...] kidney disease (HCC) - initially presented to [facility] with an DENISHA (Scr 1.7); since resolved [...] is aware that this patient will require usp IV ATB, Pts LINDA to rule out cardiac involvement is currently pending. Pt has [facility] for infusion services, and [facility] for [facility]. Pts Teachable caregiver is his . Cm reached ou to Vivian Astorga via secure [employer] for discharge plans CM will continue to follow for discharge planning needs. 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 Follows with endocrinology at [facility]. Labile BG - uncontrolled; A1C 12.8% in [...] 2019 for IPMN. Follows with endocrinology at [facility]. Labile BG - uncontrolled; A1C 12.8% in [...] osteomyelitis, discitis, and ICD-associated infection. Transferred to [facility] for advanced imaging and definitive source evaluation. [...] osteomyelitis, discitis, and ICD-associated infection. Transferred to [facility] for advanced imaging and definitive source evaluation. [...] osteomyelitis, discitis, and ICD-associated infection. Transferred to [facility] for advanced imaging and definitive source evaluation. [...] osteomyelitis, discitis, and ICD-associated infection. Transferred to [facility] for advanced imaging and definitive source evaluation. [...] osteomyelitis, discitis, and ICD-associated infection. Transferred to [facility] for advanced imaging and definitive source evaluation. [...] kidney disease (HCC) - initially presented to [facility] with an DENISHA (Scr 1.7); since resolved [...] osteomyelitis, discitis, and ICD-associated infection. Transferred to [facility] for advanced imaging and definitive source evaluation. [...] negative * Assessment & Plan Note - aMribel Romero MD - 06/30/2025 12:23 PM EST [...] osteomyelitis, discitis, and ICD-associated infection. Transferred to [facility] for advanced imaging and definitive source evaluation. [...] osteomyelitis, discitis, and ICD-associated infection. Transferred to [facility] for advanced imaging and definitive source evaluation. [...] osteomyelitis, discitis, and ICD-associated infection. Transferred to [facility] for advanced imaging and definitive source evaluation. [...] osteomyelitis, discitis, and ICD-associated infection. Transferred to [facility] for advanced imaging and definitive source evaluation. 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 Follows with endocrinology at [facility]. - uncontrolled; A1C 12.8% in 04/2025 - [...] 2019 for IPMN. Follows with endocrinology at [facility]. - uncontrolled; A1C 12.8% in 04/2025 - [...] kidney disease (HCC) - initially presented to [facility] with an DENISHA (Scr 1.7); since resolved [...] original note were not included. Manolo Roche 89 year old Surgical Contact Serial Number: [id number] Location: ENDO 01 Date: 06/29/2025 GLOBAL DIRECTOR AIR AND CLIMATE CHANGE: Lazara Elmore DO ATTENDING:Florentino Lindsey MD Procedure(s): ESOPHAGOGASTRODUODENOSCOPY INSTRUMENT: Scope #[id number] SEDATION: Anesthesia Assisted Pre-Op Diagnosis Codes: * Anemia due to other cause, not classified [D64.89] INDICATIONS: This is a 89 year old male with: history of heart failure with reduced ejection fraction, ICD in place, history of GI bleed from peptic ulcer disease ? Required surgical intervention, ? 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 and ICD compatible [...] of implantable cardioverter-defibrillator (ICD) [Z95.810] (Primary Diagnosis) [4905350] MSSA bacteremia [5788104] Acute midline low back pain without sciatica [M54.50] [9159009] Coronary artery disease involving [place] coronary artery of [place] heart without angina pectoris [I25.10] [7696631] Essential hypertension [I10] [712636] Gastroesophageal reflux disease, unspecified whether esophagitis present [K21.9] [3692359] HFrEF (heart failure with reduced ejection fraction) [I50.20] [6290071] 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] [7728222] Hyperlipidemia, unspecified hyperlipidemia type [E78.5] [2205985] Postoperative urinary retention [N99.89, R33.8] [5718274] S/P TURP (transurethral resection of prostate) [Z90.79] [212907] Stage 3a chronic kidney disease (HCC) [N18.31] [3584326] Type 1 diabetes mellitus with hyperglycemia (HCC) [E10.65] [174226] Anemia, unspecified type [4284821] ICD (implantable cardioverter-defibrillator) in place [2699452] Presence of implantable cardioverter-defibrillator (ICD) [6090922] HFrEF (heart failure with reduced ejection fraction) [1601308] Anemia due to other cause, not classified [4914673] ANATOMIC SPECIMEN: No SPECIMEN: * No specimens [...] please contact the endoscopy center Mon-Wed 7:30am-4pm [phone] or after hours general [facility] number [phone] Severe abdominal pain that keeps getting worse Fever or any other signs of infection Nausea or vomiting blood Seeing persistent blood coming out of your rectum, with or without stool (some streaks or drops of blood may be expected) For any additional questions, please call the endoscopy center at [phone] Follow-up with your Primary Care Provider CC: Primary Care Provider: No primary care provider on file. PERSON COMPLETING NOTE: Lazara Elmore DO 06/29/2025 at 5:09 PM Patient meets criteria for discharge/transfer: Lazara Elmore DO ATTENDING NOTE: I was present during and participated in this procedure, and have reviewed and agree with the findings. Florentino Lindsey MD Staff Car Record Clerk , Division of Gastroenterology & Hepatology [place], [place] Flat [employer], [facility] [employer] * Assessment & Plan [...] osteomyelitis, discitis, and ICD-associated infection. Transferred to [facility] for advanced imaging and definitive source evaluation. [...] osteomyelitis, discitis, and ICD-associated infection. Transferred to [facility] for advanced imaging and definitive source evaluation. [...] osteomyelitis, discitis, and ICD-associated infection. Transferred to [facility] for advanced imaging and definitive source evaluation. [...] rec standing T/L-spine xray - Bcx2 06/24 1/2 GPC - Repeat Bcx2 06/26 12 GPC [...] osteomyelitis, discitis, and ICD-associated infection. Transferred to [facility] for advanced imaging and definitive source evaluation. [...] osteomyelitis, discitis, and ICD-associated infection. Transferred to [facility] for advanced imaging and definitive source evaluation. 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 Follows with endocrinology at [facility]. - uncontrolled; A1C 12.8% in 04/2025 - [...] 2019 for IPMN. Follows with endocrinology at [facility]. - uncontrolled; A1C 12.8% in 04/2025 - [...] kidney disease (HCC) - initially presented to [facility] with an DENISHA (Scr 1.7); since resolved [...] care for IVATB, and [facility] for [facility]. Pts Teachable caregiver will be his . Cm will remain available for discharge planning needs that may arise. Lana Rivas MSN, RN Inpatient Otr [employer] Driver [address] [place] [address] Cell [phone] * Blood Attestation - Maribel Romero MD - 06/29/2025 11:19 AM EST Blood Attestation: ATTESTATION OF INFORMED CONSENT FOR BLOOD: The transfusion of blood and/or blood components were discussed with the patient and/or legal contracts representative. The risks, benefits and alternatives were reviewed. Questions regarding blood transfusions were answered. The patient /or the patient???s legal contracts representative agree with the plan for transfusion [...] primary -Neurosurgery signing off at this time JAMIE May Neurosurgery [phone] * Assessment & Plan Note - Maribel [...] osteomyelitis, discitis, and ICD-associated infection. Transferred to [facility] for advanced imaging and definitive source evaluation. [...] 06/24 1 GPC - Repeat Bcx2 06/26 1 GPC [...] osteomyelitis, discitis, and ICD-associated infection. Transferred to [facility] for advanced imaging and definitive source evaluation. [...] osteomyelitis, discitis, and ICD-associated infection. Transferred to [facility] for advanced imaging and definitive source evaluation. [...] osteomyelitis, discitis, and ICD-associated infection. Transferred to [facility] for advanced imaging and definitive source evaluation. [...] osteomyelitis, discitis, and ICD-associated infection. Transferred to [facility] for advanced imaging and definitive source evaluation. 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 Follows with endocrinology at [facility]. - uncontrolled; A1C 12.8% in 04/2025 - [...] 2019 for IPMN. Follows with endocrinology at [facility]. - uncontrolled; A1C 12.8% in 04/2025 - [...] kidney disease (HCC) - initially presented to [facility] with an DENISHA (Scr 1.7); since resolved [...] ATB at discharge.He has been accepted by [facility] and [facility] awaiting agency of choice by patient. [facility] to provide IV ATB infusion. CANDICE Tello, RN, CCM PRN saxophone teacher [phone] Addendum 1411: CM met with patient and spouse Rose to discuss discharge plan for homegoing. Family has chosen [facility] for [facility] and [facility] for infusion services. Patients has confirmed she will bethe teachable caregiver. Updated agencies via Careport of anticipated dc date and AOC confirmation. CANDICE Tello, RN, CCM PRN saxophone teacher [phone] * Assessment & Plan Note - Maribel [...] osteomyelitis, discitis, and ICD-associated infection. Transferred to [facility] for advanced imaging and definitive source evaluation. [...] osteomyelitis, discitis, and ICD-associated infection. Transferred to [facility] for advanced imaging and definitive source evaluation. [...] osteomyelitis, discitis, and ICD-associated infection. Transferred to [facility] for advanced imaging and definitive source evaluation. [...] osteomyelitis, discitis, and ICD-associated infection. Transferred to [facility] for advanced imaging and definitive source evaluation. [...] pending MRI T/L spine - Bcx2 06/24 1/2 GPC - Repeat Bcx2 06/26 - [...] osteomyelitis, discitis, and ICD-associated infection. Transferred to [facility] for advanced imaging and definitive source evaluation. 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 Follows with endocrinology at [facility]. - uncontrolled; A1C 12.8% in 04/2025 - [...] 2019 for IPMN. Follows with endocrinology at [facility]. - uncontrolled; A1C 12.8% in 04/2025 - [...] kidney disease (HCC) - initially presented to [facility] with an DENISHA (Scr 1.7); since resolved [...] Discussion with patient: to follow when appropriate [facility] agency: Claudia Gutierrez [facility] Start of care at home: TBD Other: Following for HIVAT needs at [place] [facility] Toll free After hours or weekend intake dynamics ax solution architect or Buffy Gasca RN Clinical Nurse Liaison [phone] * Discharge Planning Note - Lana Rivas RN - 06/27/2025 12:36 PM EST CASE MANAGEMENT CM made aware by Physicians that team anticipates patient to be medically cleared for discharge. Patient will need HIVAT for discharge. CM placed a Careport Referral with [facility] to initiate review of costs for home IV antibiotics.. CM and [facility] Liaison to discuss recommendation with infectious disease and medicine team. The following will need to be completed prior to discharge. ID Abstract - medical team PICC Line - medical team Con 196 for SN - Home care to be set up by case checker; medical team to place home care order [...] preferences from the medicare.gov comparesite for HHC. [place] of Choice was provided to the patient/patient contracts representative. CM to follow for accepting C agencies. Lana Rivas MSN, RN Inpatient Otr [employer] Truck Driver [address] [place] [address] Cell [phone] * Assessment & Plan Note - Maribel [...] osteomyelitis, discitis, and ICD-associated infection. Transferred to [facility] for advanced imaging and definitive source evaluation. [...] osteomyelitis, discitis, and ICD-associated infection. Transferred to [facility] for advanced imaging and definitive source evaluation. [...] osteomyelitis, discitis, and ICD-associated infection. Transferred to [facility] for advanced imaging and definitive source evaluation. [...] osteomyelitis, discitis, and ICD-associated infection. Transferred to [facility] for advanced imaging and definitive source evaluation. [...] osteomyelitis, discitis, and ICD-associated infection. Transferred to [facility] for advanced imaging and definitive source evaluation. 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 Follows with endocrinology at [facility]. - uncontrolled; A1C 12.8% in 04/2025 - [...] 2019 for IPMN. Follows with endocrinology at [facility]. - uncontrolled; A1C 12.8% in 04/2025 - [...] kidney disease (HCC) - initially presented to [facility] with an DENISHA (Scr 1.7); since resolved [...] osteomyelitis, discitis, and ICD-associated infection. Transferred to [facility] for advanced imaging and definitive source evaluation. [...] osteomyelitis, discitis, and ICD-associated infection. Transferred to [facility] for advanced imaging and definitive source evaluation. [...] osteomyelitis, discitis, and ICD-associated infection. Transferred to [facility] for advanced imaging and definitive source evaluation. [...] osteomyelitis, discitis, and ICD-associated infection. Transferred to [facility] for advanced imaging and definitive source evaluation. [...] osteomyelitis, discitis, and ICD-associated infection. Transferred to [facility] for advanced imaging and definitive source evaluation. 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 Follows with endocrinology at [facility]. - uncontrolled; A1C 12.8% in 04/2025 - [...] 2019 for IPMN. Follows with endocrinology at [facility]. 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 Follows with endocrinology at [facility]. - uncontrolled; A1C 12.8% in 04/2025 - [...] 2019 for IPMN. Follows with endocrinology at [facility]. - uncontrolled; A1C 12.8% in 04/2025 - [...] osteomyelitis, discitis, and ICD-associated infection. Transferred to [facility] for advanced imaging and definitive source evaluation. [...] osteomyelitis, discitis, and ICD-associated infection. Transferred to [facility] for advanced imaging and definitive source evaluation. [...] osteomyelitis, discitis, and ICD-associated infection. Transferred to [facility] for advanced imaging and definitive source evaluation. [...] osteomyelitis, discitis, and ICD-associated infection. Transferred to [facility] for advanced imaging and definitive source evaluation. [...] osteomyelitis, discitis, and ICD-associated infection. Transferred to [facility] for advanced imaging and definitive source evaluation. [...] 06/23/2025 1:29 PM EST Got called from [place] for transfer. Patient is 89 y/o male wt hx of [facility] that presented with AMS and fever. Found to have hydronephrosis. Kimble placed. Patient also with severe back pain. No saddle anesthesia or incontinence. Blood cultures growing MSSA. Echo pending. Fritz Thorne MD documented in this encounter Plan of Treatment DateTypeDepartmentCare Team (Latest Contact Info)Droggzkjysk04/21/2026 11:00 AM ESTOffice Visit [facility] [address] [place] [address] Jacqueline Baptiste MD [address] [place] [address] NameTypePriorityAssociated DiagnosesOrder ScheduleECHOCARDIOGRAM, ADULT SERVICE REQUESTReferralRoutineSchedule One [...] fracture of T10 vertebra, initial encounter (HCC) Ordered: 07/03/2025documented as of this encounter Procedures Procedure NamePriorityDate/TimeAssociated DiagnosisCommentsXR CHEST AP OR PA 1 NMEVCLXB37/23/2025 11:57 AM EST GLUCOSE, FINGERSTICK-IN LFEODYQrwdmgy43/23/2025 11:13 AM EST XA PICC INSERT ADULT RN (VIDYA)Spwwrff7207/03/2025 10:58 AM ESTGLUCOSE, FINGERSTICK- IN GLKYZRQjnhbrm98/23/2025 7:53 AM EST BASIC METABOLIC EPCZFXvejkux88/23/2025 2:03 AM EST COMPLETE BLOOD CFHQUQqgtnhu73/23/2025 2:03 AM EST GLUCOSE, FINGERSTICK-IN TVFISFGcjvotl29/22/2025 10:27 PM EST GLUCOSE, FINGERSTICK-IN MRJEVMOojugdk66/22/2025 4:36 PM EST GLUCOSE, FINGERSTICK-IN HBSVBVOyswhqq63/22/2025 11:47 AM EST GLUCOSE, FINGERSTICK-IN WOPUYFDwmhdey07/22/2025 8:00 AM EST GLUCOSE, FINGERSTICK-IN TFOPRYEeiewel36/22/2025 6:46 AM EST GLUCOSE, FINGERSTICK-IN PDMQWNPscckrx07/22/2025 4:22 AM EST CBC WITH ECOWBFHKUSQITubtmsz18/22/2025 3:23 AM EST COMPLETE BLOOD COUNT W/BOCVLeflpvl35/22/2025 3:23 AM EST BASIC METABOLIC ARPJFJqdfgum81/22/2025 3:23 AM EST GLUCOSE, FINGERSTICK-IN CFWDFKLbphcdz83/22/2025 12:54 AM EST GLUCOSE, FINGERSTICK-IN STHMNRIrcgkin79/21/2025 9:59 PM EST GLUCOSE, FINGERSTICK-IN TYLVRBPgdezdx30/21/2025 4:43 PM EST GLUCOSE, FINGERSTICK-IN PYIBEGFjsapqw20/21/2025 12:00 PM EST GLUCOSE, FINGERSTICK-IN TPTRTTCdbduwi27/21/2025 7:40 AM EST CBC WITH CWUAVPNUUXISBwyvdbi44/21/2025 5:24 AM EST COMPLETE BLOOD COUNT W/DFNIPezxxit13/21/2025 5:24 AM EST BASIC METABOLIC UPWPHXckemzj73/21/2025 5:24 AM EST GLUCOSE, FINGERSTICK-IN QQJGPFXvbbded66/20/2025 8:41 PM EST GLUCOSE, FINGERSTICK-IN XMJIBPYhwmdfa37/20/2025 4:37 PM EST CBC WITH KQIRKSGELFMXThtdpxj86/20/2025 11:29 AM EST COMPLETE BLOOD COUNT W/ICZPPlcuihf74/20/2025 11:29 AM EST BASIC METABOLIC MGJCDIvtwrhp15/20/2025 11:29 AM EST GLUCOSE, FINGERSTICK-IN XQQKSGChkykrp87/20/2025 11:18 AM EST GLUCOSE, FINGERSTICK-IN SSJZOEXgozymr79/20/2025 8:03 AM EST GLUCOSE, FINGERSTICK-IN IGDLSNMaacxdj15/20/2025 3:23 AM EST GLUCOSE, FINGERSTICK-IN EVXFNYUrjepqv65/19/2025 8:27 PM EST GLUCOSE, FINGERSTICK-IN RFBRHCTjwqkdf78/19/2025 7:04 PM EST GLUCOSE, FINGERSTICK-IN KTEDREJgjxxms07/19/2025 6:38 PM EST GLUCOSE, FINGERSTICK-IN ZCQCGYRewowxp44/19/2025 5:34 PM EST UPPER GI ENDOSCOPY; DX, W/WO SPECIMEN COLLECTION, BRUSHING/WASHING (SEP PROC) Cjgxqfu8806/29/2025 5:09 PM EST Anemia, unspecified type Anemia due to other cause, not classified Upper GI Endoscopy; W/Biopsy, Single/Pbodqvgd21/19/2025 4:40 PM EST Anemia due to other cause, not classified Upper Gi Endoscopy; Dx, W/Wo Specimen Collection, Brushing/Washing (Sep Proc) 06/29/2025 4:40 PM EST Anemia due to other cause, not classified GLUCOSE, FINGERSTICK-IN CGCWPPWamlujl08/19/2025 4:18 PM EST GLUCOSE, FINGERSTICK-IN GZUGDRAftgpca08/19/2025 3:55 PM EST GLUCOSE, FINGERSTICK-IN BMWEMCXnctpfw64/19/2025 2:01 PM EST GLUCOSE, FINGERSTICK-IN UZJEVIVtwyyge57/19/2025 11:51 AM EST BASIC METABOLIC HWPHYTtmuaya07/19/2025 11:46 AM EST PROTHROMBIN TIME AND LCPXbzktku85/19/2025 11:46 AM EST BVANhtblhp08/19/2025 11:22 AM EST PLASMA YIDCMZCpvrvsp74/19/2025 11:22 AM EST PLASMA SKSMOMHjiicrn63/19/2025 11:22 AM EST GLUCOSE, FINGERSTICK-IN SUNJEGJegizsy23/19/2025 11:21 AM EST GLUCOSE, FINGERSTICK-IN DCWLCSCpwiyzi96/19/2025 7:12 AM EST GLUCOSE, FINGERSTICK-IN BHIQKTFaedaxz29/19/2025 5:49 AM EST GLUCOSE, FINGERSTICK-IN QNJSCBSqcjlio06/19/2025 5:35 AM EST GLUCOSE, FINGERSTICK-IN DIMQGHWpzrzua43/19/2025 5:21 AM EST CBC WITH DGMPVZIFUOEHAetoboi44/19/2025 4:34 AM EST COMPLETE BLOOD COUNT W/PKDUZajfkxy64/19/2025 4:34 AM EST HC HEPATIC FUNCTION PANELLab Add-On06/29/2025 4:34 AM EST BASIC METABOLIC RDNAFSeddlbx21/19/2025 4:34 AM EST TYPE AND AZIAWMNojdkds12/19/2025 4:34 AM EST PROTHROMBIN TIME AND QHKBvbvldt20/19/2025 4:34 AM EST PARTIAL THROMBOPLASTIN MDTKPostwfm58/19/2025 4:34 AM EST PHOSPHORUSLab Add-On06/29/2025 4:34 AM EST GLUCOSE, FINGERSTICK-IN JIYTOECayaxzv39/18/2025 9:36 PM EST XR T-SPINE 3 NMTDEUainloj72/18/2025 7:13 PM EST XR L-SPINE AP+LATERAL 2-3 OYKLDRssjirv84/18/2025 7:13 PM EST GLUCOSE, FINGERSTICK-IN KTGERNHkdqyjr73/18/2025 4:49 PM EST BLOOD CVQTRNOSewpihw20/18/2025 12:37 PM EST GLUCOSE, FINGERSTICK-IN XXLFXQCshmknc27/18/2025 11:18 AM EST GLUCOSE, FINGERSTICK-IN CJEXTKVcjudfl83/18/2025 7:46 AM EST BLOOD OAVDQOGQeynwcm52/18/2025 5:58 AM EST CBC WITH JJEPNCGQKEGQKjhmoro85/18/2025 1:35 AM EST COMPLETE BLOOD COUNT W/CQPZDtsljcp69/18/2025 1:35 AM EST BASIC METABOLIC OFJCOCxvnqvi12/18/2025 1:35 AM EST IRON AND TIBCLab Add-On06/28/2025 1:35 AM EST FERRITINLab Add-On06/28/2025 1:35 AM EST GLUCOSE, FINGERSTICK-IN JCSSAGUbozkru70/17/2025 10:12 PM EST GLUCOSE, FINGERSTICK-IN ZGDNQHQvrihyl01/17/2025 4:02 PM EST PERCY-PROCEDURAL DEVICE EVAL, SINGLE, DUAL, MULTIPLE LEAD OR LEADLESS PACEMAKER REATZCHnutckf38/17/2025 3:03 PM ESTMR L-SPINE W/+W/OSTAT108/28/2024 2:50 PM EST MR T-SPINE W/+W/OSTAT108/28/2024 2:50 PM EST GLUCOSE, FINGERSTICK-IN COZVJYLzqyrub59/17/2025 8:20 AM EST CBC WITH IERLTJRTTACWLnwbrxf08/17/2025 5:43 AM EST COMPLETE BLOOD COUNT W/XPWQRvovjdr82/17/2025 5:43 AM EST BASIC METABOLIC YPKPELnjqjok45/17/2025 5:43 AM EST LYPYKMCXHDOUoebaei08/17/2025 5:43 AM EST MDFVvpsbbb03/17/2025 5:43 AM EST IRON AND TTKJOmgymjk69/17/2025 5:43 AM EST FOLIC GSLZYdkbxis78/17/2025 5:43 AM EST YMAAWJQCKjghqlw06/17/2025 5:43 AM EST VITAMIN B12 (CYANOCOBALAMIN)Stfmmwr9106/27/2025 5:43 AM EST GLUCOSE, FINGERSTICK-IN TDRJMDMvanthf49/16/2025 9:20 PM EST GLUCOSE, FINGERSTICK-IN QOBOVRDmdrxii24/16/2025 4:31 PM EST BLOOD DILIULGZhjielm55/16/2025 3:09 PM EST BLOOD PAVWEHZIeuewuz44/16/2025 3:00 PM EST OCCULT BLOOD, AFHONDASW06/16/2025 11:39 AM EST GLUCOSE, FINGERSTICK-IN CMPNXTOseijkn94/16/2025 11:34 AM EST GLUCOSE, FINGERSTICK-IN MFRKPLQpslqkq80/16/2025 7:54 AM EST CBC WITH JZCRCZCJTYDWLosbiwr13/16/2025 4:10 AM EST PROCALCITONINLab Add-On06/26/2025 4:10 AM EST COMPLETE BLOOD COUNT W/TYBMFbvufgp53/16/2025 4:10 AM EST BASIC METABOLIC LTTOPZjbkyrc23/16/2025 4:10 AM EST CONFIRMATION ABO/IWNdkfqix44/16/2025 4:10 AM EST MANUAL DIFF AND OEWGDHspfpiz86/16/2025 4:10 AM EST ERYTHROCYTE SEDIMENTATION RATELab Add-On06/26/2025 4:10 AM EST C-REACTIVE PROTEINLab Add-On06/26/2025 4:10 AM EST GLUCOSE, FINGERSTICK-IN QSNCJSXjuzcpm54/15/2025 9:35 PM EST GLUCOSE, FINGERSTICK-IN QBPTCCBifedjl26/15/2025 5:41 PM EST INTERROGATION DEVICE EVAL, IN PERSON, SINGLE, DUAL, MULTIPLE LEAD IMPLANTABLE DEFIBRILLATOR KPHDPCUfsxyek04/15/2025 3:05 PM EST Presence of implantable cardioverter-defibrillator (ICD) HFrEF (heart failure with reduced ejection fraction) XR CHEST AP OR PA 1 WVDFZTCD53/15/2025 2:16 PM EST GLUCOSE, FINGERSTICK-IN MYYMFEZpswrbw23/15/2025 12:06 PM EST GLUCOSE, FINGERSTICK-IN WXTQSNKyafdmp95/15/2025 7:46 AM EST GLUCOSE, FINGERSTICK-IN SMQYTSMbtogcb33/14/2025 9:32 PM EST CBC WITH ZBOPEVNUOBTIXrvhzcv94/14/2025 8:52 PM EST COMPLETE BLOOD COUNT W/HENDUewxgjz32/14/2025 8:52 PM EST BASIC METABOLIC NTOSOUnefmmy90/14/2025 8:52 PM EST TYPE AND BNEIOSLhtnmdr35/14/2025 8:52 PM EST BLOOD QEGVHWNLPQL41/14/2025 8:52 PM EST BLOOD NJMUGEWSMLA31/14/2025 8:52 PM EST documented in this encounter [...] AICD device. MACRO: None Authorizing ProviderResult TypeResult StatusLafaheem [facility]m [facility] MD DIAGNOSTIC [facility]-RAY 2 Final Result * (ABNORMAL) GLUCOSE, FINGERSTICK-IN OFFICE (07/03/2025 11:13 AM EST)Component ValueRef RangeTest MethodAnalysis TimePerformed AtPathologist Signature Glucose, COQ751(H)74 - 109 mg/dL07/03/2025 11:20 AM ESTNURSING GLUCOSE PROGRAM Specimen (Source)Anatomical Location / LateralityCollection Method / Volume Collection TimeReceived TimeBloodBLOOD SPECIMEN / Woyfmdf0107/03/2025 11:13 AM EST07/03/2025 11:20 AM EST Narrative Authorizing ProviderResult TypeResult StatusTo Be AssignedEC BACK OFFICE LABS Final ResultPerforming OrganizationAddressCity/State/ZIP CodePhone Number NURSING GLUCOSE PROGRAM [address] [place] [phone] * XA PICC INSERT ADULT RN (VIDYA) (07/03/2025 10:58 AM EST)Specimen (Source) Anatomical Location / LateralityCollection Method / VolumeCollection Time Received Time Narrative Authorizing ProviderResult TypeResult StatusLafaheem Garcia MDEC INVASIVE RADIOLOGY Final Result * (ABNORMAL) GLUCOSE, FINGERSTICK-IN OFFICE (07/03/2025 7:53 AM EST)Component ValueRef RangeTest MethodAnalysis TimePerformed AtPathologist Signature Glucose, GAZ911(H)74 - 109 mg/dL07/03/2025 8:02 AM ESTNURSING GLUCOSE PROGRAM Specimen (Source)Anatomical Location / LateralityCollection Method / Volume Collection TimeReceived TimeBloodBLOOD SPECIMEN / Zkhqktp3607/03/2025 7:53 AM EST07/03/2025 8:02 AM EST Narrative Authorizing ProviderResult TypeResult StatusTo Be AssignedEC BACK OFFICE LABS Final ResultPerforming OrganizationAddressCity/State/ZIP CodePhone Number NURSING GLUCOSE PROGRAM [address] [place] [address] * (ABNORMAL) BASIC METABOLIC PANEL (07/03/2025 2:03 AM EST)ComponentValueRef RangeTest MethodAnalysis TimePerformed AtPathologist WjncueynyOydhefm896(H)74 - 109 mg/dL07/03/2025 3:23 AM ESTS PATHOLOGY PQFUOAZEPFZaxldx924(L)136 - 145 mmol/L109/03/2024 3:23 AM ESTS PATHOLOGY LABORATORYPotassium4.83.5 - 5.0 mmol/L109/03/2024 3:23 AM ESTS PATHOLOGY LABORATORYCarbon Eoeobrr8566 - 31 mmol/L109/03/2024 3:23 AM ESTS PATHOLOGY ANDOWQCJAAMizgmulr43310 - 107 mmol/L 07/03/2025 3:23 AM ESTS PATHOLOGY LABORATORYBlood Urea Nqvmttvi697 - 25 mg/dL07/03/2025 3:23 AM ESTS PATHOLOGY LABORATORYCreatinine0.990.70 - 1.30 mg/dL07/03/2025 3:23 AM ESTS PATHOLOGY LABORATORYCalcium8.0(L)8.6 - 10.3 mg/dL07/03/2025 3:23 AM ESTS PATHOLOGY LABORATORYAnion Iwk4006 - 20 07/03/2025 3:23 AM [facility] PATHOLOGY LABORATORYEstimated GFR (CKD-EPI)73>=60 mL/min/1.54cew5409/03/2024 3:23 AM [facility] PATHOLOGY LABORATORYComment: 2020 CKD EPI [...] Med 1 Vol. 385 Issue 19 Pages 1170-5654 Specimen (Source)Anatomical Location / LateralityCollection Method / Volume Collection TimeReceived TimeBloodBLOOD SPECIMEN / UnknownVenipuncture / Unknown 07/03/2025 2:03 AM EST07/03/2025 2:57 AM EST Narrative Authorizing ProviderResult TypeResult StatusLauren Deneen OGLESBY98 GENERAL LABFinal ResultPerforming OrganizationAddressCity/State/ZIP CodePhone Number [facility] PATHOLOG[facility] LABORATORY [address] [place] [phone] * (ABNORMAL) COMPLETE BLOOD COUNT (07/03/2025 2:03 AM EST)ComponentValueRef RangeTest MethodAnalysis TimePerformed AtPathologist SignatureWBC7.74.5 - 11.5 K/uL07/03/2025 3:07 AM [facility] PATHOLOGY LABORATORYRBC3.25(L)4.50 - 5.90 M/uL 07/03/2025 3:07 AM [facility] PATHOLOGY LABORATORYHemoglobin8.5(L)13.9 - 16.3 g/dL 07/03/2025 3:07 AM [facility] PATHOLOGY GMCZTMERVRUeucznxdvm81.4(L)41.0 - 53.0 % 07/03/2025 3:07 AM [facility] PATHOLOGY OUMATTEGYDTEJ6602 - 100 fL07/03/2025 3:07 AM [facility] PATHOLOGY SQLZQHXPCVRZD78.326.0 - 34.0 pg07/03/2025 3:07 AM [facility] PATHOLOGY WZCAQJCHSRVORT71.332.0 - 35.9 g/dL07/03/2025 3:07 AM [facility] PATHOLOGY OIYTXMKUDAGfwkjiqi402150 - 400 K/uL07/03/2025 3:07 AM [facility] PATHOLOGY LABORATORYRDW-CV16.1(H)11.5 - 14.5 %07/03/2025 3:07 AM [facility] PATHOLOGY LABORATORYMPV9.97.5 - 11.2 fL07/03/2025 3:07 AM [facility] PATHOLOGY LABORATORYSpecimen (Source)Anatomical Location / LateralityCollection Method / VolumeCollection TimeReceived TimeBloodBLOOD SPECIMEN / UnknownVenipuncture / Prwgrok3907/03/2025 2:03 AM EST07/03/2025 2:57 AM EST Narrative Authorizing ProviderResult TypeResult StatusJoseph Garcia MD98 GENERAL LABFinal ResultPerforming OrganizationAddressCity/State/ZIP CodePhone Number [facility] PATHOLOG[facility] LABORATORY [address] [place] [phone] * (ABNORMAL) GLUCOSE, FINGERSTICK-IN OFFICE (07/02/2025 10:27 PM EST)Component ValueRef RangeTest MethodAnalysis TimePerformed AtPathologist Signature Glucose, HDI154(H)74 - 109 mg/dL07/02/2025 10:34 PM ESTNURSING GLUCOSE PROGRAM Specimen (Source)Anatomical Location / LateralityCollection Method / Volume Collection TimeReceived TimeBloodBLOOD SPECIMEN / Idmoetn8007/02/2025 10:27 PM EST07/02/2025 10:34 PM EST Narrative Authorizing ProviderResult TypeResult StatusTo Be AssignedEC BACK OFFICE LABS Final ResultPerforming OrganizationAddressCity/State/ZIP CodePhone Number NURSING GLUCOSE PROGRAM [address] [place] [address] * (ABNORMAL) GLUCOSE, FINGERSTICK-IN OFFICE (07/02/2025 4:36 PM EST)Component ValueRef RangeTest MethodAnalysis TimePerformed AtPathologist Signature Glucose, EPU296(H)74 - 109 mg/dL07/02/2025 4:42 PM ESTNURSING GLUCOSE PROGRAM Specimen (Source)Anatomical Location / LateralityCollection Method / Volume Collection TimeReceived TimeBloodBLOOD SPECIMEN / Ezdunyw4407/02/2025 4:36 PM EST07/02/2025 4:42 PM EST Narrative Authorizing ProviderResult TypeResult StatusTo Be AssignedEC BACK OFFICE LABS Final ResultPerforming OrganizationAdd[facility] Hlthty/State/ZIP CodePhone Number NURSING GLUCOSE PROGRAM [address] [place] [phone] * (ABNORMAL) GLUCOSE, FINGERSTICK-IN OFFICE (07/02/2025 11:47 AM EST)Component ValueRef RangeTest MethodAnalysis TimePerformed AtPathologist Signature Glucose, UNB967(H)74 - 109 mg/dL07/02/2025 11:54 AM ESTNURSING GLUCOSE PROGRAM Specimen (Source)Anatomical Location / LateralityCollection Method / Volume Collection TimeReceived TimeBloodBLOOD SPECIMEN / Glnjifu3607/02/2025 11:47 AM EST07/02/2025 11:54 AM EST Narrative Authorizing ProviderResult TypeResult StatusTo Be AssignedEC BACK OFFICE LABS Final ResultPerforming OrganizationAdd[facility] Hlthty/State/ZIP CodePhone Number NURSING GLUCOSE PROGRAM [address] [place] [phone] * (ABNORMAL) GLUCOSE, FINGERSTICK-IN OFFICE (07/02/2025 8:00 AM EST)Component ValueRef RangeTest MethodAnalysis TimePerformed AtPathologist Signature Glucose, HVF770(H)74 - 109 mg/dL07/02/2025 8:06 AM ESTNURSING GLUCOSE PROGRAM Specimen (Source)Anatomical Location / LateralityCollection Method / Volume Collection TimeReceived TimeBloodBLOOD SPECIMEN / Vwqpdhh3607/02/2025 8:00 AM EST07/02/2025 8:06 AM EST Narrative Authorizing ProviderResult TypeResult StatusTo Be AssignedEC BACK OFFICE LABS Final ResultPerforming OrganizationAdd[facility] Hlt[facility]y/State/ZIP CodePhone Number NURSING GLUCOSE PROGRAM [address] [place] [phone] * (ABNORMAL) GLUCOSE, FINGERSTICK-IN OFFICE (07/02/2025 6:46 AM EST)Component ValueRef RangeTest MethodAnalysis TimePerformed AtPathologist Signature Glucose, UKM943(H)74 - 109 mg/dL07/02/2025 6:53 AM ESTNURSING GLUCOSE PROGRAM Specimen (Source)Anatomical Location / LateralityCollection Method / Volume Collection TimeReceived TimeBloodBLOOD SPECIMEN / Yhntzgy6107/02/2025 6:46 AM EST07/02/2025 6:53 AM EST Narrative Authorizing ProviderResult TypeResult StatusTo Be AssignedEC BACK OFFICE LABS Final ResultPerforming OrganizationAddressCity/State/ZIP CodePhone Number NURSING GLUCOSE PROGRAM [address] [place] [phone] * (ABNORMAL) GLUCOSE, FINGERSTICK-IN OFFICE (07/02/2025 4:22 AM EST)Component ValueRef RangeTest MethodAnalysis TimePerformed AtPathologist Signature Glucose, DOA624(H)74 - 109 mg/dL07/02/2025 4:28 AM ESTNURSING GLUCOSE PROGRAM Specimen (Source)Anatomical Location / LateralityCollection Method / Volume Collection TimeReceived TimeBloodBLOOD SPECIMEN / Fouckys0407/02/2025 4:22 AM EST07/02/2025 4:28 AM EST Narrative Authorizing ProviderResult TypeResult StatusTo Be AssignedEC BACK OFFICE LABS Final ResultPerforming OrganizationAddressCity/State/ZIP CodePhone Number NURSING GLUCOSE PROGRAM [address] [place] [phone] * (ABNORMAL) CBC WITH DIFFERENTIAL (07/02/2025 3:23 AM EST)ComponentValueRef RangeTest MethodAnalysis TimePerformed AtPathologist SignatureWBC8.34.5 - 11.5 K/uL07/02/2025 3:41 AM [facility] PATHOLOGY LABORATORYRBC3.17(L)4.50 - 5.90 M/uL 07/02/2025 3:41 AM [facility] PATHOLOGY LABORATORYHemoglobin8.6(L)13.9 - 16.3 g/dL 07/02/2025 3:41 AM [facility] PATHOLOGY CMETFUWEMMGasgolxcpy47.2(L)41.0 - 53.0 % 07/02/2025 3:41 AM ESTS PATHOLOGY OLGYWMHEXSAYS5860 - 100 fL07/02/2025 3:41 AM [facility] PATHOLOGY JWJOHCUGJTMMB43.026.0 - 34.0 pg07/02/2025 3:41 AM ESTS PATHOLOGY UOIDNWMXFGXQDG47.932.0 - 35.9 g/dL07/02/2025 3:41 AM [facility] PATHOLOGY SVATRKXVHMElarnikh720(H)150 - 400 K/uL07/02/2025 3:41 AM [facility] PATHOLOGY LABORATORYRDW-CV15.5(H)11.5 - 14.5 %07/02/2025 3:41 AM [facility] PATHOLOGY LABORATORYMPV9.77.5 - 11.2 fL07/02/2025 3:41 AM [facility] PATHOLOGY KBRHYIWEPKGjkmdhsrwkm24.631.0 - 76.0 %07/02/2025 3:41 AM [facility] PATHOLOGY LABORATORYNeutrophil #5.911.50 - 8.00 K/uL07/02/2025 3:41 AM [facility] PATHOLOGY ZFKCKFEZUUEgewzcdihya45.2(L)24.0 - 44.0 %07/02/2025 3:41 AM [facility] PATHOLOGY LABORATORYLymphocytes #1.091.00 - 4.80 K/uL07/02/2025 3:41 AM [facility] PATHOLOGY OYGEFVJNYDTwcypkxod43.8(H)2.0 - 11.0 %07/02/2025 3:41 AM [facility] PATHOLOGY LABORATORYMonocyte #1.06(H)0.20 - 1.00 K/uL07/02/2025 3:41 AM [facility] PATHOLOGY LABORATORYEosinophil1.10.1 - 4.0 %07/02/2025 3:41 AM [facility] PATHOLOGY LABORATORYEosinophil #0.090.00 - 0.70 K/uL07/02/2025 3:41 AM [facility] PATHOLOGY LABORATORYBasophils1.3<=1.9 %07/02/2025 3:41 AM [facility] PATHOLOG[facility] LABORATORY Basophil #0.110.00 - 0.20 K/uL07/02/2025 3:41 AM [facility] PATHOLOG[facility] LABORATORY Specimen (Source)Anatomical Location / LateralityCollection Method / Volume Collection TimeReceived TimeBloodBLOOD SPECIMEN / UnknownVenipuncture / Lmoknzg3307/02/2025 3:23 AM EST07/02/2025 3:34 AM EST Narrative Authorizing ProviderResult TypeResult StatusGhassacayla ESPARZA LAB ORDER ONLY Final ResultPerforming OrganizationAddressCity/State/ZIP CodePhone Number [facility] PATHOLOG[facility] LABORATORY [address] [place] [phone] * (ABNORMAL) BASIC METABOLIC PANEL (07/02/2025 3:23 AM EST)ComponentValueRef RangeTest MethodAnalysis TimePerformed AtPathologist SveiwmyemKafvotw353(H)74 - 109 mg/dL07/02/2025 3:58 AM [facility] PATHOLOGY NKHLCORAHHAlgpyx922(L)136 - 145 mmol/L109/02/2024 3:58 AM [facility] PATHOLOGY LABORATORYPotassium4.73.5 - 5.0 mmol/L109/02/2024 3:58 AM [facility] PATHOLOGY LABORATORYCarbon Iggnjcz5545 - 31 mmol/L109/02/2024 3:58 AM [facility] PATHOLOGY PUMAPLPEZZMdzlnlgl53744 - 107 mmol/L 07/02/2025 3:58 AM [facility] PATHOLOGY LABORATORYBlood Urea Cwnhizhg771 - 25 mg/dL07/02/2025 3:58 AM [facility] PATHOLOGY LABORATORYCreatinine0.990.70 - 1.30 mg/dL07/02/2025 3:58 AM [facility] PATHOLOGY LABORATORYCalcium7.9(L)8.6 - 10.3 mg/dL07/02/2025 3:58 AM [facility] PATHOLOGY LABORATORYAnion Xqh9245 - 20 07/02/2025 3:58 AM [facility] PATHOLOGY LABORATORYEstimated GFR (CKD-EPI)73>=60 mL/min/1.76zci4409/02/2024 3:58 AM [facility] PATHOLOGY LABORATORYComment: 2020 CKD EPI [...] Med 2021 Vol. 385 Issue 19 Pages 9330-3660 Specimen (Source)Anatomical Location / LateralityCollection Method / Volume Collection TimeReceived TimeBloodBLOOD SPECIMEN / UnknownVenipuncture / Unknown 07/02/2025 3:23 AM EST07/02/2025 3:34 AM EST Narrative Authorizing ProviderResult TypeResult StatusGhdonnie Lovett MD98 GENERAL LAB Final ResultPerforming OrganizationAddressCity/State/ZIP CodePhone Number [facility] [address] [place] [phone] * (ABNORMAL) GLUCOSE, FINGERSTICK-IN OFFICE (07/02/2025 12:54 AM EST)Component ValueRef RangeTest MethodAnalysis TimePerformed AtPathologist Signature Glucose, COV395(H)74 - 109 mg/dL07/02/2025 1:00 AM ESTNURSING GLUCOSE PROGRAM Specimen (Source)Anatomical Location / LateralityCollection Method / Volume Collection TimeReceived TimeBloodBLOOD SPECIMEN / Veynyex5007/02/2025 12:54 AM EST07/02/2025 1:00 AM EST Narrative Authorizing ProviderResult TypeResult StatusTo Be AssignedEC BACK OFFICE LABS Final ResultPerforming OrganizationAddressCity/State/ZIP CodePhone Number NURSING GLUCOSE PROGRAM [address] [place] [phone] * (ABNORMAL) GLUCOSE, FINGERSTICK-IN OFFICE (07/01/2025 9:59 PM EST)Component ValueRef RangeTest MethodAnalysis TimePerformed AtPathologist Signature Glucose, ZCA098(H)74 - 109 mg/dL07/01/2025 10:05 PM ESTNURSING GLUCOSE PROGRAM Specimen (Source)Anatomical Location / LateralityCollection Method / Volume Collection TimeReceived TimeBloodBLOOD SPECIMEN / Aluscmi1607/01/2025 9:59 PM EST07/01/2025 10:05 PM EST Narrative Authorizing ProviderResult TypeResult StatusTo Be AssignedEC BACK OFFICE LABS Final ResultPerforming OrganizationAddressty/State/ZIP CodePhone Number NURSING GLUCOSE PROGRAM [address] [place] [phone] * (ABNORMAL) GLUCOSE, FINGERSTICK-IN OFFICE (07/01/2025 4:43 PM EST)Component ValueRef RangeTest MethodAnalysis TimePerformed AtPathologist Signature Glucose, QZH692(H)74 - 109 mg/dL07/01/2025 4:50 PM ESTNURSING GLUCOSE PROGRAM Specimen (Source)Anatomical Location / LateralityCollection Method / Volume Collection TimeReceived TimeBloodBLOOD SPECIMEN / Yxqkneq1007/01/2025 4:43 PM EST07/01/2025 4:50 PM EST Narrative Authorizing ProviderResult TypeResult StatusTo Be AssignedEC BACK OFFICE LABS Final ResultPerforming OrganizationAddressCity/State/ZIP CodePhone Number NURSING GLUCOSE PROGRAM [address] [place] [phone] * (ABNORMAL) GLUCOSE, FINGERSTICK-IN OFFICE (07/01/2025 12:00 PM EST)Component ValueRef RangeTest MethodAnalysis TimePerformed AtPathologist Signature Glucose, FOE109(H)74 - 109 mg/dL07/01/2025 12:06 PM ESTNURSING GLUCOSE PROGRAM Specimen (Source)Anatomical Location / LateralityCollection Method / Volume Collection TimeReceived TimeBloodBLOOD SPECIMEN / Poagewf4007/01/2025 12:00 PM EST07/01/2025 12:06 PM EST Narrative Authorizing ProviderResult TypeResult StatusTo Be AssignedEC BACK OFFICE LABS Final ResultPerforming OrganizationAddressCity/State/ZIP CodePhone Number NURSING GLUCOSE PROGRAM [address] [place] [phone] * (ABNORMAL) GLUCOSE, FINGERSTICK-IN OFFICE (07/01/2025 7:40 AM EST)Component ValueRef RangeTest MethodAnalysis TimePerformed AtPathologist Signature Glucose, TSL150(H)74 - 109 mg/dL07/01/2025 7:46 AM ESTNURSING GLUCOSE PROGRAM Specimen (Source)Anatomical Location / LateralityCollection Method / Volume Collection TimeReceived TimeBloodBLOOD SPECIMEN / Dozawnl7407/01/2025 7:40 AM EST07/01/2025 7:46 AM EST Narrative Authorizing ProviderResult TypeResult StatusTo Be AssignedEC BACK OFFICE LABS Final ResultPerforming OrganizationAddS[facility] Hlthty/State/ZIP CodePhone Number NURSING GLUCOSE PROGRAM [address] [place] [phone] * (ABNORMAL) CBC WITH DIFFERENTIAL (07/01/2025 5:24 AM EST)ComponentValueRef RangeTest MethodAnalysis TimePerformed AtPathologist SignatureWBC6.44.5 - 11.5 K/uL07/01/2025 6:06 AM [facility] PATHOLOGY LABORATORYRBC3.45(L)4.50 - 5.90 M/uL 07/01/2025 6:06 AM [facility] PATHOLOGY LABORATORYHemoglobin9.0(L)13.9 - 16.3 g/dL 07/01/2025 6:06 AM [facility] PATHOLOGY WAOWRKUUYNGnzllkzyvy38.8(L)41.0 - 53.0 % 07/01/2025 6:06 AM [facility] PATHOLOGY QIXXXDWOOGXNX5486 - 100 fL07/01/2025 6:06 AM [facility] PATHOLOGY HLBYSBKLZIFXN63.126.0 - 34.0 pg07/01/2025 6:06 AM [facility] PATHOLOGY KYWFRQQCSUHSZA69.432.0 - 35.9 g/dL07/01/2025 6:06 AM [facility] PATHOLOGY BWGOTNFIQHEgydiscw243(H)150 - 400 K/uL07/01/2025 6:06 AM [facility] PATHOLOGY LABORATORYRDW-CV15.6(H)11.5 - 14.5 %07/01/2025 6:06 AM [facility] PATHOLOGY LABORATORYMPV9.77.5 - 11.2 fL07/01/2025 6:06 AM [facility] PATHOLOGY HKWFXHIFAABgvgnjwkpdr97.331.0 - 76.0 %07/01/2025 6:06 AM [facility] PATHOLOGY LABORATORYNeutrophil #4.291.50 - 8.00 K/uL07/01/2025 6:06 AM [facility] PATHOLOGY DZSKODZXOFLheneumvafn11.3(L)24.0 - 44.0 %07/01/2025 6:06 AM [facility] PATHOLOGY LABORATORYLymphocytes #1.231.00 - 4.80 K/uL07/01/2025 6:06 AM [facility] PATHOLOGY WJYGGLURJVLebvfwmug21.82.0 - 11.0 %07/01/2025 6:06 AM [facility] PATHOLOGY LABORATORYMonocyte #0.690.20 - 1.00 K/uL07/01/2025 6:06 AM [facility] PATHOLOGY LABORATORYEosinophil1.30.1 - 4.0 %07/01/2025 6:06 AM [facility] PATHOLOGY LABORATORYEosinophil #0.090.00 - 0.70 K/uL07/01/2025 6:06 AM [facility] PATHOLOGY LABORATORYBasophils1.2<=1.9 %07/01/2025 6:06 AM [facility] PATHOLOG[facility] LABORATORY Basophil #0.080.00 - 0.20 K/uL07/01/2025 6:06 AM [facility] PATHOLOG[facility] LABORATORY Specimen (Source)Anatomical Location / LateralityCollection Method / Volume Collection TimeReceived TimeBloodBLOOD SPECIMEN / UnknownVenipuncture / Yqrteog3907/01/2025 5:24 AM EST07/01/2025 6:01 AM EST Narrative Authorizing ProviderResult TypeResult StatusSudarshan ESPARZA LAB ORDER ONLY Final ResultPerforming OrganizationAddressCity/State/ZIP CodePhone Number [facility]ORY [address] [place] [phone] * (ABNORMAL) BASIC METABOLIC PANEL (07/01/2025 5:24 AM EST)ComponentValueRef RangeTest MethodAnalysis TimePerformed AtPathologist FugklgnnlHksvywt340(H)74 - 109 mg/dL07/01/2025 6:29 AM [facility] PATHOLOGY IDQYAEGTWOBluiey143(L)136 - 145 mmol/L109/01/2024 6:29 AM [facility] PATHOLOGY LABORATORYPotassium4.83.5 - 5.0 mmol/L109/01/2024 6:29 AM [facility] PATHOLOGY LABORATORYCarbon Rlhqmns3712 - 31 mmol/L109/01/2024 6:29 AM [facility] PATHOLOGY ZTLFQWSQIFLyqcaeja02584 - 107 mmol/L 07/01/2025 6:29 AM [facility] PATHOLOGY LABORATORYBlood Urea Vvidtvll585 - 25 mg/dL07/01/2025 6:29 AM [facility] PATHOLOGY LABORATORYCreatinine0.960.70 - 1.30 mg/dL07/01/2025 6:29 AM [facility] PATHOLOGY LABORATORYCalcium7.9(L)8.6 - 10.3 mg/dL07/01/2025 6:29 AM [facility] PATHOLOGY LABORATORYAnion Wch6668 - 20 07/01/2025 6:29 AM [facility] PATHOLOGY LABORATORYEstimated GFR (CKD-EPI)76>=60 mL/min/1.45vpx3509/01/2024 6:29 AM [facility] PATHOLOGY LABORATORYComment: 2020 CKD EPI Equation using Creatinine without Race Comment: ??Estimated glomerular filtration rate (eGFR) is calculated without a race coefficient. Values should be interpreted in the context of the patient's full clinical presentation. Reference: 1. Geoff C, Shirley M, [place]ana DC, et al.. A Unifying Approach for GFR Estimation: Recommendations of the NKF-ASN Task Force on Reassessing the Inclusion of Race in Diagnosing Kidney Disease. AmericanJournal of Kidney Diseases 2021;79(2):268-88.e1. 2. N Engl J Med 1 Vol. 385 Issue 19 Pages 3772-1963 Specimen (Source)Anatomical Location / LateralityCollection Method / Volume Collection TimeReceived TimeBloodBLOOD SPECIMEN / UnknownVenipuncture / Unknown 07/01/2025 5:24 AM EST07/01/2025 6:01 AM EST Narrative Authorizing ProviderResult TypeResult StatusSudarshan Lovett MD98 GENERAL LAB Final ResultPerforming OrganizationAddressCity/State/ZIP CodePhone Number [facility] [address] [place] [phone] * (ABNORMAL) GLUCOSE, FINGERSTICK-IN OFFICE (06/30/2025 8:41 PM EST)Component ValueRef RangeTest MethodAnalysis TimePerformed AtPathologist Signature Glucose, LDR261(H)74 - 109 mg/dL06/30/2025 8:48 PM ESTNURSING GLUCOSE PROGRAM Specimen (Source)Anatomical Location / LateralityCollection Method / Volume Collection TimeReceived TimeBloodBLOOD SPECIMEN / Wjythcv3506/30/2025 8:41 PM EST06/30/2025 8:48 PM EST Narrative Authorizing ProviderResult TypeResult StatusTo Be AssignedEC BACK OFFICE LABS Final ResultPerforming OrganizationAddSurgical Specialty [facility] Hlthty/State/ZIP CodePhone Number NURSING GLUCOSE PROGRAM [address] [place] [phone] * (ABNORMAL) GLUCOSE, FINGERSTICK-IN OFFICE (06/30/2025 4:37 PM EST)Component ValueRef RangeTest MethodAnalysis TimePerformed AtPathologist Signature Glucose, NJC129(H)74 - 109 mg/dL06/30/2025 4:43 PM ESTNURSING GLUCOSE PROGRAM Specimen (Source)Anatomical Location / LateralityCollection Method / Volume Collection TimeReceived TimeBloodBLOOD SPECIMEN / Xvyugxz9206/30/2025 4:37 PM EST06/30/2025 4:43 PM EST Narrative Authorizing ProviderResult TypeResult StatusTo Be AssignedEC BACK OFFICE LABS Final ResultPerforming OrganizationAddressty/State/ZIP CodePhone Number NURSING GLUCOSE PROGRAM [address] [place] [phone] * (ABNORMAL) CBC WITH DIFFERENTIAL (06/30/2025 11:29 AM EST)ComponentValueRef RangeTest MethodAnalysis TimePerformed AtPathologist SignatureWBC7.74.5 - 11.5 K/uL06/30/2025 11:43 AM ESTADV[facility] LABORATORYRBC3.20(L)4.50 - 5.90 M/uL 06/30/2025 11:43 AM [facility] PATHOLOGY LABORATORYHemoglobin8.6(L)13.9 - 16.3 g/dL06/30/2025 11:43 AM [facility] PATHOLOGY SUURRSEILPZjlauzmbag95.6(L)41.0 - 53.0 %06/30/2025 11:43 AM [facility] PATHOLOGY VVJVJEOVHUREC7380 - 100 fL 06/30/2025 11:43 AM [facility] PATHOLOGY EXLGYRGQYQMAF83.726.0 - 34.0 pg06/30/2025 11:43 AM [facility] PATHOLOGY YDDKWRMZJQSAXW50.432.0 - 35.9 g/dL06/30/2025 11:43 AM [facility] PATHOLOGY IJTKFQFAVMGgclmnwg384(H)150 - 400 K/uL06/30/2025 11:43 AM [facility] PATHOLOGY LABORATORYRDW-CV15.8(H)11.5 - 14.5 %06/30/2025 11:43 AM EST [facility] PATHOLOGY LABORATORYMPV9.97.5 - 11.2 fL06/30/2025 11:43 AM [facility] PATHOLOGY XBEUNEHRHQPzokvpwexgz01.5(H)31.0 - 76.0 %06/30/2025 11:43 AM [facility] PATHOLOGY LABORATORYNeutrophil #5.891.50 - 8.00 K/uL06/30/2025 11:43 AM [facility] PATHOLOGY LABORATORYLymphocytes9.3(L)24.0 - 44.0 %06/30/2025 11:43 AM [facility] PATHOLOGY LABORATORYLymphocytes #0.72(L)1.00 - 4.80 K/uL06/30/2025 11:43 AM [facility] PATHOLOGY GUYQKAPKXIGdkqaoukg50.7(H)2.0 - 11.0 %06/30/2025 11:43 AM EST [facility] PATHOLOGY LABORATORYMonocyte #0.900.20 - 1.00 K/uL06/30/2025 11:43 AM EST [facility] PATHOLOGY LABORATORYEosinophil1.50.1 - 4.0 %06/30/2025 11:43 AM [facility] PATHOLOGY LABORATORYEosinophil #0.120.00 - 0.70 K/uL06/30/2025 11:43 AM [facility] PATHOLOGY LABORATORYBasophils1.0<=1.9 %06/30/2025 11:43 AM [facility] PATHOLOGY LABORATORYBasophil #0.070.00 - 0.20 K/uL06/30/2025 11:43 AM [facility] PATHOLOGY LABORATORYSpecimen (Source)Anatomical Location / LateralityCollection Method / VolumeCollection TimeReceived TimeBloodBLOOD SPECIMEN / UnknownVenipuncture / Vfxrzgx4006/30/2025 11:29 AM EST06/30/2025 11:37 AM EST Narrative Authorizing ProviderResult TypeResult StatusGhassan Rachell ESPARZA LAB ORDER ONLY Final ResultPerforming OrganizationAddressCity/State/ZIP CodePhone Number [facility] PATHOLOGY LABORATORY [address] [place] [address] * (ABNORMAL) BASIC METABOLIC PANEL (06/30/2025 11:29 AM EST)ComponentValueRef RangeTest MethodAnalysis TimePerformed AtPathologist EpeyjlcckUstmigx130(H)74 - 109 mg/dL06/30/2025 12:14 PM [facility] PATHOLOGY VUIMXIENHZLmqvms295(L)136 - 145 mmol/L108/31/2024 12:14 PM [facility] PATHOLOGY LABORATORYPotassium4.33.5 - 5.0 mmol/L108/31/2024 12:14 PM [facility] PATHOLOGY LABORATORYCarbon Nufkgbq0030 - 31 mmol/L108/31/2024 12:14 PM [facility] PATHOLOGY SHNWVDVYWKTrwfjbmf21412 - 107 mmol/L108/31/2024 12:14 PM [facility] PATHOLOGY LABORATORYBlood Urea Renmiwnh535 - 25 mg/dL06/30/2025 12:14 PM [facility] PATHOLOGY LABORATORYCreatinine0.910.70 - 1.30 mg/dL06/30/2025 12:14 PM [facility] PATHOLOGY LABORATORYCalcium8.0(L)8.6 - 10.3 mg/dL06/30/2025 12:14 PM [facility] PATHOLOGY LABORATORYAnion Znh4139 - 20 06/30/2025 12:14 PM [facility] PATHOLOGY LABORATORYEstimated GFR (CKD-EPI)81>=60 mL/min/1.65ptk3008/31/2024 12:14 PM [facility] PATHOLOGY LABORATORYComment: 2020 CKD EPI [...] Diseases 2021;79(2):268-88.e1. 2. N Engl J Med 2020 Vol. 385 Issue 19 Pages 7534-9835 Specimen (Source)Anatomical Location / LateralityCollection Method / Volume Collection TimeReceived TimeBloodBLOOD SPECIMEN / UnknownVenipuncture / Unknown 06/30/2025 11:29 AM EST06/30/2025 11:37 AM EST Narrative Authorizing ProviderResult TypeResult StatusSudarshan Lovett MD98 GENERAL LAB Final ResultPerforming OrganizationAddressCity/State/ZIP CodePhone Number [facility] PATHOLOGY LABORATORY [address] [place] [address] * (ABNORMAL) GLUCOSE, FINGERSTICK-IN OFFICE (06/30/2025 11:18 AM EST)Component ValueRef RangeTest MethodAnalysis TimePerformed AtPathologist Signature Glucose, QRO477(H)74 - 109 mg/dL06/30/2025 11:24 AM ESTNURSING GLUCOSE PROGRAM Specimen (Source)Anatomical Location / LateralityCollection Method / Volume Collection TimeReceived TimeBloodBLOOD SPECIMEN / Cuqccpz0806/30/2025 11:18 AM EST06/30/2025 11:24 AM EST Narrative Authorizing ProviderResult TypeResult StatusTo Be AssignedEC BACK OFFICE LABS Final ResultPerforming OrganizationAddressCity/State/ZIP CodePhone Number NURSING GLUCOSE PROGRAM [address] [place] [address] * (ABNORMAL) GLUCOSE, FINGERSTICK-IN OFFICE (06/30/2025 8:03 AM EST)Component ValueRef RangeTest MethodAnalysis TimePerformed AtPathologist Signature Glucose, DYC874(H)74 - 109 mg/dL06/30/2025 8:10 AM ESTNURSING GLUCOSE PROGRAM Specimen (Source)Anatomical Location / LateralityCollection Method / Volume Collection TimeReceived TimeBloodBLOOD SPECIMEN / Vevygre3206/30/2025 8:03 AM EST06/30/2025 8:10 AM EST Narrative Authorizing ProviderResult TypeResult StatusTo Be AssignedEC BACK OFFICE LABS Final ResultPerforming OrganizationAddressty/State/ZIP CodePhone Number NURSING GLUCOSE PROGRAM [address] [place] [phone] * (ABNORMAL) GLUCOSE, FINGERSTICK-IN OFFICE (06/30/2025 3:23 AM EST)Component ValueRef RangeTest MethodAnalysis TimePerformed AtPathologist Signature Glucose, DAM027(H)74 - 109 mg/dL06/30/2025 3:30 AM ESTNURSING GLUCOSE PROGRAM Specimen (Source)Anatomical Location / LateralityCollection Method / Volume Collection TimeReceived TimeBloodBLOOD SPECIMEN / Cijvssm3206/30/2025 3:23 AM EST06/30/2025 3:30 AM EST Narrative Authorizing ProviderResult TypeResult StatusTo Be AssignedEC BACK OFFICE LABS Final ResultPerforming [facility]Add[facility] Hlthty/State/ZIP CodePhone Number NURSING GLUCOSE PROGRAM [address] [place] [phone] * (ABNORMAL) GLUCOSE, FINGERSTICK-IN OFFICE (06/29/2025 8:27 PM EST)Component ValueRef RangeTest MethodAnalysis TimePerformed AtPathologist Signature Glucose, WPY628(H)74 - 109 mg/dL06/29/2025 8:33 PM ESTNURSING GLUCOSE PROGRAM Specimen (Source)Anatomical Location / LateralityCollection Method / Volume Collection TimeReceived TimeBloodBLOOD SPECIMEN / Xsnwjrn4606/29/2025 8:27 PM EST06/29/2025 8:33 PM EST Narrative Authorizing ProviderResult TypeResult StatusTo Be AssignedEC BACK OFFICE LABS Final ResultPerforming OrganizationAddS[facility] Hlthty/State/ZIP CodePhone Number NURSING GLUCOSE PROGRAM [address] [place] [phone] * GLUCOSE, FINGERSTICK-IN OFFICE (06/29/2025 7:04 PM EST)ComponentValueRef Range Test MethodAnalysis TimePerformed AtPathologist SignatureGlucose, SLI3572 - 109 mg/dL06/29/2025 7:10 PM ESTNURSING GLUCOSE PROGRAMSpecimen (Source) Anatomical Location / LateralityCollection Method / VolumeCollection Time Received TimeBloodBLOOD SPECIMEN / Cbdgazl5206/29/2025 7:04 PM EST06/29/2025 7:10 PM EST Narrative Authorizing ProviderResult TypeResult StatusTo Be AssignedEC BACK OFFICE LABS Final ResultPerforming OrganizationAddressty/State/ZIP CodePhone Number NURSING GLUCOSE PROGRAM [address] [place] [phone] * (ABNORMAL) GLUCOSE, FINGERSTICK-IN OFFICE (06/29/2025 6:38 PM EST)Component ValueRef RangeTest MethodAnalysis TimePerformed AtPathologist Signature Glucose, POC56(L)74 - 109 mg/dL06/29/2025 6:44 PM ESTNURSING GLUCOSE PROGRAM Specimen (Source)Anatomical Location / LateralityCollection Method / Volume Collection TimeReceived TimeBloodBLOOD SPECIMEN / Wnsufrl1506/29/2025 6:38 PM EST06/29/2025 6:44 PM EST Narrative Authorizing ProviderResult TypeResult StatusTo Be AssignedEC BACK OFFICE LABS Final ResultPerforming [facility]Add[facility] Hlthty/State/ZIP CodePhone Number NURSING GLUCOSE PROGRAM [address] [place] [phone] * GLUCOSE, FINGERSTICK-IN OFFICE (06/29/2025 5:34 PM EST)ComponentValueRef Range Test MethodAnalysis TimePerformed AtPathologist SignatureGlucose, OYN1798 - 109 mg/dL06/29/2025 5:40 PM ESTNURSING GLUCOSE PROGRAMSpecimen (Source) Anatomical Location / LateralityCollection Method / VolumeCollection Time Received TimeBloodBLOOD SPECIMEN / Xlocxxc4606/29/2025 5:34 PM EST06/29/2025 5:40 PM EST Narrative Authorizing ProviderResult TypeResult StatusTo Be AssignedEC BACK OFFICE LABS Final ResultPerforming OrganizationAddS[facility] Hlthty/State/ZIP CodePhone Number NURSING GLUCOSE PROGRAM [address] [place] [phone] * GLUCOSE, FINGERSTICK-IN OFFICE (06/29/2025 4:18 PM EST)ComponentValueRef Range Test MethodAnalysis TimePerformed AtPathologist SignatureGlucose, ENT4773 - 109 mg/dL06/29/2025 4:24 PM ESTNURSING GLUCOSE PROGRAMSpecimen (Source) Anatomical Location / LateralityCollection Method / VolumeCollection Time Received TimeBloodBLOOD SPECIMEN / Gzkapiq3106/29/2025 4:18 PM EST06/29/2025 4:24 PM EST Narrative Authorizing ProviderResult TypeResult StatusTo Be AssignedEC BACK OFFICE LABS Final ResultPerforming OrganizationAddressCity/State/ZIP CodePhone Number NURSING GLUCOSE PROGRAM [address] [place] [phone] * (ABNORMAL) GLUCOSE, FINGERSTICK-IN OFFICE (06/29/2025 3:55 PM EST)Component ValueRef RangeTest MethodAnalysis TimePerformed AtPathologist Signature Glucose, POC62(L)74 - 109 mg/dL06/29/2025 4:02 PM ESTNURSING GLUCOSE PROGRAM Comment:Notified RN YANIV OGLESBY
Specimen (Source)Anatomical Location / LateralityCollection Method / VolumeCollection TimeReceived TimeBloodBLOOD SPECIMEN / Wjpkdxg9006/29/2025 3:55 PM EST06/29/2025 4:02 PM EST Narrative Authorizing ProviderResult TypeResult StatusTo Be AssignedEC BACK OFFICE LABS Final ResultPerforming OrganizationAddS[facility] Hlthty/State/ZIP CodePhone Number NURSING GLUCOSE PROGRAM [address] [place] [phone] * GLUCOSE, FINGERSTICK-IN OFFICE (06/29/2025 2:01 PM EST)ComponentValueRef Range Test MethodAnalysis TimePerformed AtPathologist SignatureGlucose, CSJ8779 - 109 mg/dL06/29/2025 2:07 PM ESTNURSING GLUCOSE PROGRAMSpecimen (Source) Anatomical Location / LateralityCollection Method / VolumeCollection Time Received TimeBloodBLOOD SPECIMEN / Ezvkxna6206/29/2025 2:01 PM EST06/29/2025 2:07 PM EST Narrative Authorizing ProviderResult TypeResult StatusTo Be AssignedEC BACK OFFICE LABS Final ResultPerforming OrganizationAddressty/State/ZIP CodePhone Number NURSING GLUCOSE PROGRAM [address] [place] [phone] * GLUCOSE, FINGERSTICK-IN OFFICE (06/29/2025 11:51 AM EST)ComponentValueRef RangeTest MethodAnalysis TimePerformed AtPathologist SignatureGlucose, WSK5568 - 109 mg/dL06/29/2025 11:59 AM ESTNURSING GLUCOSE PROGRAMSpecimen (Source) Anatomical Location / LateralityCollection Method / VolumeCollection Time Received TimeBloodBLOOD SPECIMEN / Dcpntpy4406/29/2025 11:51 AM EST06/29/2025 11:59 AM EST Narrative Authorizing ProviderResult TypeResult StatusTo Be AssignedEC BACK OFFICE LABS Final ResultPerforming OrganizationAddressCity/State/ZIP CodePhone Number NURSING GLUCOSE PROGRAM [address] [place] [address] * (ABNORMAL) PROTHROMBIN TIME AND INR (06/29/2025 11:46 AM EST)ComponentValueRef RangeTest MethodAnalysis TimePerformed AtPathologist WwcwbhssjKnrxotu16.7(H) 9.7 - 12.9 sec06/29/2025 12:05 PM EST[facility]Y LABORATORYINR2.65(H)0.90 - 1.10108/30/2024 12:05 PM [facility] PATHOLOGY LABORATORYSpecimen (Source)Anatomical Location / LateralityCollection Method / VolumeCollection TimeReceived Time BloodBLOOD SPECIMEN / UnknownVenipuncture / Iljozln7006/29/2025 11:46 AM EST 06/29/2025 11:50 AM EST Narrative Authorizing ProviderResult TypeResult StatusDelight MeekSarah [place] [address] GENERAL LAB Final ResultPerforming OrganizationAddressCity/State/ZIP CodePhone Number [facility] PATHOLOGY LABORATORY [address] [place] [address] * BASIC METABOLIC PANEL (06/29/2025 11:46 AM EST)ComponentValueRef RangeTest MethodAnalysis TimePerformed AtPathologist BgistcgoqZjldugw4813 - 109 mg/dL 06/29/2025 12:25 PM ESTAD[facility] BCANTZLZPAEasgph779402 - 145 mmol/L 06/29/2025 12:25 PM ESTS PATHOLOGY LABORATORYPotassium4.43.5 - 5.0 mmol/L 06/29/2025 12:25 PM [facility] PATHOLOGY LABORATORYCarbon Atwomuc1615 - 31 mmol/L 06/29/2025 12:25 PM [facility] PATHOLOGY CIBPJNEPXUJentipfh09645 - 107 mmol/L 06/29/2025 12:25 PM ESTS PATHOLOGY LABORATORYBlood Urea Bxzpgrrc457 - 25 mg/dL06/29/2025 12:25 PM [facility] PATHOLOGY LABORATORYCreatinine0.880.70 - 1.30 mg/dL06/29/2025 12:25 PM [facility] PATHOLOGY LABORATORYCalcium8.68.6 - 10.3 mg/dL 06/29/2025 12:25 PM [facility] PATHOLOGY LABORATORYAnion Qhr5983 - 12:25 PM [facility] PATHOLOGY LABORATORYEstimated GFR (CKD-EPI)83>=60 mL/min/1.19ems4108/30/2024 12:25 PM [facility] PATHOLOGY LABORATORYComment: 2020 CKD EPI [...] Diseases 2021;79(2):268-88.e1. 2. N Engl J Med 2021 Vol. 385 Issue 19 Pages 6603-9259 Specimen (Source)Anatomical Location / LateralityCollection Method / Volume Collection TimeReceived TimeBloodBLOOD SPECIMEN / UnknownVenipuncture / Unknown 06/29/2025 11:46 AM EST06/29/2025 11:55 AM EST Narrative Authorizing ProviderResult TypeResult StatusMaribel PONCE GENERAL LAB Final ResultPerforming OrganizationAddressCity/State/ZIP CodePhone Number [facility] PATHOLOGY LABORATORY [address] [place] [address] * FFP (06/29/2025 11:22 AM EST)ComponentValueRef RangeTest MethodAnalysis Time Performed AtPathologist SignatureBB Order ItemProduct status info to [facility] PATHOLOGY LABORATORYSpecimen (Source)Anatomical Location / Laterality Collection Method / VolumeCollection TimeReceived TimeBLOOD SPECIMEN / Unknown Narrative Authorizing ProviderResult TypeResult StatusMaribel ESPARZA BLOOD BANKFinal ResultPerforming OrganizationAddressCity/State/ZIP CodePhone Number [facility] PATHOLOGY LABORATORY [address] [place] [address] * PLASMA STATUS (06/29/2025 11:22 AM EST)ComponentValueRef RangeTest Method Analysis TimePerformed AtPathologist SignatureBlood Product DescriptionEMORY [facility]IV[facility] PATHOLOGY LABORATORYBlood Product [id number] PATHOLOGY LABORATORYStatus Not usedS PATHOLOGY LABORATORYBlood Product Unit [id number] PATHOLOGY LABORATORYBlood Product Unit [id number] PATHOLOGY LABORATORY Comment:A PosSpecimen (Source)Anatomical Location / LateralityCollection Method / VolumeCollection TimeReceived Time06/29/2025 11:22 AM EST Narrative Authorizing ProviderResult TypeResult StatusFormerly [facility] BLOOD BANK Edited Result - FinalPerforming OrganizationAddressCity/State/ZIP CodePhone Number [facility] PATHOLOGY LABORATORY [address] [place] [address] * PLASMA STATUS (06/29/2025 11:22 AM EST)ComponentValueRef RangeTest Method Analysis TimePerformed AtPathologist SignatureBlood Product DescriptionFFWOOSTER COMMUN[facility] PATHOLOGY LABORATORYBlood Product [id number] PATHOLOGY LABORATORYStatus Not usedADVANCED [facility] PATHOLOGY LABORATORYBlood Product Unit [id number] PATHOLOGY LABORATORYBlood Product Unit [id number] PATHOLOGY LABORATORY Comment:A PosSpecimen (Source)Anatomical Location / LateralityCollection Method / VolumeCollection TimeReceived Time06/29/2025 11:22 AM EST Narrative Authorizing ProviderResult TypeResult StatusFormerly [facility] BLOOD BANK Edited Result - FinalPerforming OrganizationAddressCity/State/ZIP CodePhone Number [facility] PATHOLOGY LABORATORY [address] [place] [address] * (ABNORMAL) GLUCOSE, FINGERSTICK-IN OFFICE (06/29/2025 11:21 AM EST)Component ValueRef RangeTest MethodAnalysis TimePerformed AtPathologist Signature Glucose, POC53(LL)74 - 109 mg/dL06/29/2025 11:28 AM ESTNURSING GLUCOSE PROGRAM Comment:Notified RN YANIV MD
Specimen (Source)Anatomical Location / LateralityCollection Method / VolumeCollection TimeReceived TimeBloodBLOOD SPECIMEN / Dikvsjc8706/29/2025 11:21 AM EST06/29/2025 11:28 AM EST Narrative Authorizing ProviderResult TypeResult StatusTo Be AssignedEC BACK OFFICE LABS Final ResultPerforming OrganizationAddSurgical Special[facility] Hlthty/State/ZIP CodePhone Number NURSING GLUCOSE PROGRAM [address] [place] [phone] * GLUCOSE, FINGERSTICK-IN OFFICE (06/29/2025 7:12 AM EST)ComponentValueRef Range Test MethodAnalysis TimePerformed AtPathologist SignatureGlucose, BWQ73324 - 109 mg/dL06/29/2025 7:19 AM ESTNURSING GLUCOSE PROGRAMSpecimen (Source) Anatomical Location / LateralityCollection Method / VolumeCollection Time Received TimeBloodBLOOD SPECIMEN / Clpsvkv5306/29/2025 7:12 AM EST06/29/2025 7:19 AM EST Narrative Authorizing ProviderResult TypeResult StatusTo Be AssignedEC BACK OFFICE LABS Final ResultPerforming OrganizationAddSurgical [facility] Hlthty/State/ZIP CodePhone Number NURSING GLUCOSE PROGRAM [address] [place] [phone] * GLUCOSE, FINGERSTICK-IN OFFICE (06/29/2025 5:49 AM EST)ComponentValueRef Range Test MethodAnalysis TimePerformed AtPathologist SignatureGlucose, NTC48837 - 109 mg/dL06/29/2025 5:55 AM ESTNURSING GLUCOSE PROGRAMSpecimen (Source) Anatomical Location / LateralityCollection Method / VolumeCollection Time Received TimeBloodBLOOD SPECIMEN / Nmhvspn9106/29/2025 5:49 AM EST06/29/2025 5:55 AM EST Narrative Authorizing ProviderResult TypeResult StatusTo Be AssignedEC BACK OFFICE LABS Final ResultPerforming OrganizationAddSurgical Special[facility] Hlthty/State/ZIP CodePhone Number NURSING GLUCOSE PROGRAM [address] [place] [phone] * GLUCOSE, FINGERSTICK-IN OFFICE (06/29/2025 5:35 AM EST)ComponentValueRef Range Test MethodAnalysis TimePerformed AtPathologist SignatureGlucose, DXI5786 - 109 mg/dL06/29/2025 5:41 AM ESTNURSING GLUCOSE PROGRAMSpecimen (Source) Anatomical Location / LateralityCollection Method / VolumeCollection Time Received TimeBloodBLOOD SPECIMEN / Iywqohp9606/29/2025 5:35 AM EST06/29/2025 5:41 AM EST Narrative Authorizing ProviderResult TypeResult StatusTo Be AssignedEC BACK OFFICE LABS Final ResultPerforming OrganizationAddressCity/State/ZIP CodePhone Number NURSING GLUCOSE PROGRAM [address] [place] [phone] * (ABNORMAL) GLUCOSE, FINGERSTICK-IN OFFICE (06/29/2025 5:21 AM EST)Component ValueRef RangeTest MethodAnalysis TimePerformed AtPathologist Signature Glucose, POC53(LL)74 - 109 mg/dL06/29/2025 5:27 AM ESTNURSING GLUCOSE PROGRAM Comment:Notified RN YANIV OGLESBY
Specimen (Source)Anatomical Location / LateralityCollection Method / VolumeCollection TimeReceived TimeBloodBLOOD SPECIMEN / Asktcve8906/29/2025 5:21 AM EST06/29/2025 5:27 AM EST Narrative Authorizing ProviderResult TypeResult StatusTo Be AssignedEC BACK OFFICE LABS Final ResultPerforming OrganizationAddressCity/State/ZIP CodePhone Number NURSING GLUCOSE PROGRAM [address] [place], [place] [phone] * (ABNORMAL) PHOSPHORUS (06/29/2025 4:34 AM EST)ComponentValueRef RangeTest MethodAnalysis TimePerformed AtPathologist SignaturePhosphorus, Serum2.4(L)2.5 - 5.0 mg/dL06/29/2025 6:34 AM ESTS PATHOLOGY LABORATORYSpecimen (Source) Anatomical Location / LateralityCollection Method / VolumeCollection Time Received TimeBloodBLOOD SPECIMEN / UnknownVenipuncture / Dnbttfb5406/29/2025 4:34 AM EST06/29/2025 4:47 AM EST Narrative Authorizing ProviderResult TypeResult StatusJeramana Veronica MD98 GENERAL LABFinal ResultPerforming OrganizationAddressCity/State/ZIP CodePhone Number [facility] PATHOLOGY LABORATORY [address] [place] [phone] * (ABNORMAL) HEPATIC FUNCTION PANEL (06/29/2025 4:34 AM EST)ComponentValueRef RangeTest MethodAnalysis TimePerformed AtPathologist SignatureAlbumin2.2(L)3.5 - 5.7 g/dL06/29/2025 6:34 AM ESTS PATHOLOGY LABORATORYBilirubin, Direct0.05 0.03 - 0.18 mg/dL06/29/2025 6:34 AM [facility] PATHOLOGY LABORATORYBilirubin, Total0.2(L)0.3 - 1.0 mg/dL06/29/2025 6:34 AM [facility] PATHOLOGY LABORATORY Alkaline Chfzjxpzuot0812 - 104 IU/L108/30/2024 6:34 AM [facility] PATHOLOGY LABORATORYALT (SGPT)<3(L)7 - 52 IU/L108/30/2024 6:34 AM [facility] PATHOLOGY LABORATORYAST (SGOT)1313 - 39 IU/L108/30/2024 6:34 AM [facility] PATHOLOGY LABORATORYProtein, Total4.4(L)6.1 - 7.9 g/dL06/29/2025 6:34 AM [facility] PATHOLOGY LABORATORYSpecimen (Source)Anatomical Location / Laterality Collection Method / VolumeCollection TimeReceived TimeBloodBLOOD SPECIMEN / UnknownVenipuncture / Tdswkvh1906/29/2025 4:34 AM EST06/29/2025 4:47 AM EST Narrative Authorizing ProviderResult TypeResult StatusJeramana Veronica MD98 GENERAL LABFinal ResultPerforming OrganizationAddressCity/State/ZIP CodePhone Number [facility] PATHOLOGY LABORATORY [address] [place] [phone] * (ABNORMAL) CBC WITH DIFFERENTIAL (06/29/2025 4:34 AM EST)ComponentValueRef RangeTest MethodAnalysis TimePerformed AtPathologist SignatureWBC9.54.5 - 11.5 K/uL06/29/2025 4:55 AM [facility] PATHOLOGY LABORATORYRBC3.67(L)4.50 - 5.90 M/uL 06/29/2025 4:55 AM [facility] PATHOLOGY LABORATORYHemoglobin9.8(L)13.9 - 16.3 g/dL 06/29/2025 4:55 AM [facility] PATHOLOGY THWOETQYJEViuyazfdmn23.6(L)41.0 - 53.0 % 06/29/2025 4:55 AM [facility] PATHOLOGY ADMTYPWHHKXNC0203 - 100 fL06/29/2025 4:55 AM [facility] PATHOLOGY GKWSPUZEATURY36.726.0 - 34.0 pg06/29/2025 4:55 AM [facility] PATHOLOGY OVZJKTNMBJXZTX81.232.0 - 35.9 g/dL06/29/2025 4:55 AM [facility] PATHOLOGY RGXGEUYPBQWrvmuspx989(H)150 - 400 K/uL06/29/2025 4:55 AM [facility] PATHOLOGY LABORATORYRDW-CV15.9(H)11.5 - 14.5 %06/29/2025 4:55 AM [facility] PATHOLOGY LABORATORYMPV9.57.5 - 11.2 fL06/29/2025 4:55 AM [facility] PATHOLOGY WVEZLLCNEGOqnhndcqazm63.331.0 - 76.0 %06/29/2025 4:55 AM [facility] PATHOLOGY LABORATORYNeutrophil #7.051.50 - 8.00 K/uL06/29/2025 4:55 AM [facility] PATHOLOGY PRUGVIQKCHUinjaqezwnp77.5(L)24.0 - 44.0 %06/29/2025 4:55 AM [facility] PATHOLOGY LABORATORYLymphocytes #1.281.00 - 4.80 K/uL06/29/2025 4:55 AM [facility] PATHOLOGY CGGVILJQJYLeqzaorjx99.32.0 - 11.0 %06/29/2025 4:55 AM [facility] PATHOLOGY LABORATORYMonocyte #0.980.20 - 1.00 K/uL06/29/2025 4:55 AM [facility] PATHOLOGY LABORATORYEosinophil1.20.1 - 4.0 %06/29/2025 4:55 AM [facility] PATHOLOGY LABORATORYEosinophil #0.110.00 - 0.70 K/uL06/29/2025 4:55 AM [facility] PATHOLOGY LABORATORYBasophils0.8<=1.9 %06/29/2025 4:55 AM [facility] PATHOLOGY LABORATORY Basophil #0.070.00 - 0.20 K/uL06/29/2025 4:55 AM [facility] PATHOLOGY LABORATORY Specimen (Source)Anatomical Location / LateralityCollection Method / Volume Collection TimeReceived TimeBloodBLOOD SPECIMEN / UnknownVenipuncture / Qginank2006/29/2025 4:34 AM EST06/29/2025 4:47 AM EST Narrative Authorizing ProviderResult TypeResult StatusSudarshan ESPARZA LAB ORDER ONLY Final ResultPerforming OrganizationAddressCity/State/ZIP CodePhone Number [facility] PATHOLOGY LABORATORY [address] [place] [address] * (ABNORMAL) BASIC METABOLIC PANEL (06/29/2025 4:34 AM EST)ComponentValueRef RangeTest MethodAnalysis TimePerformed AtPathologist BgzquwowpArabthp40(LL)74 - 109 mg/dL06/29/2025 5:21 AM [facility] PATHOLOGY FNOMSBUERFSfuksk905117 - 145 mmol/L108/30/2024 5:21 AM [facility] PATHOLOGY LABORATORYPotassium3.1(L)3.5 - 5.0 mmol/L108/30/2024 5:21 AM [facility] PATHOLOGY LABORATORYCarbon Hhhyqxb1238 - 31 mmol/L108/30/2024 5:21 AM [facility] PATHOLOGY RZXDOYSVSXAhdnbwfp231(H)98 - 107 mmol/L108/30/2024 5:21 AM [facility] PATHOLOGY LABORATORYBlood Urea Fjkzmdlb212 - 25 mg/dL06/29/2025 5:21 AM [facility] PATHOLOGY LABORATORYCreatinine0.58(L)0.70 - 1.30 mg/dL06/29/2025 5:21 AM [facility] PATHOLOGY LABORATORYCalcium6.0(L)8.6 - 10.3 mg/dL06/29/2025 5:21 AM [facility] PATH[facility] LABORATORYAnion Gap7(L)10 - 20 06/29/2025 5:21 AM [facility] PATH[facility]Y LABORATORYEstimated GFR (CKD-EPI)94>=60 mL/min/1.14hgm5508/30/2024 5:21 AM [facility] PATHOLOGY LABORATORYComment: 2020 CKD EPI Equation using Creatinine without Race Comment: ??Estimated glomerular filtration rate (eGFR) is calculated without a race coefficient. Values should be interpreted in the context of the patient's full clinical presentation. Reference: 1. Geoff C, Shirley M, [place] DC, et al.. A Unifying Approach for GFR Estimation: Recommendations of the NKF-ASN Task Force on Reassessing the Inclusion of Race in Diagnosing Kidney Disease. AmericanJournal of Kidney Diseases 202;79(2):268-88.e1. 2. N Engl J Med 2021 Vol. 385 Issue 19 Pages 8369-8526 Specimen (Source)Anatomical Location / LateralityCollection Method / Volume Collection TimeReceived TimeBloodBLOOD SPECIMEN / UnknownVenipuncture / Unknown 06/29/2025 4:34 AM EST06/29/2025 4:47 AM EST Narrative Authorizing ProviderResult TypeResult Oma [facility] Final ResultPerforming OrganizationAddressty/State/ZIP CodePhone Number [facility] PATH[facility] LABORATORY [address] [place] [phone] * PARTIAL THROMBOPLASTIN TIME (06/29/2025 4:34 AM EST)ComponentValueRef Range Test MethodAnalysis TimePerformed AtPathologist OjlianmcxfNPV1103 - 37 sec 06/29/2025 4:57 AM [facility] PATHOLOGY LABORATORYSpecimen (Source)Anatomical Location / LateralityCollection Method / VolumeCollection TimeReceived Time BloodBLOOD SPECIMEN / UnknownVenipuncture / Wsfnims1206/29/2025 4:34 AM EST 06/29/2025 4:44 AM EST Narrative Authorizing ProviderResult TypeResult Oral [facility] Final ResultPerforming OrganizationAddressCity/State/ZIP CodePhone Number [facility] LABORATORY [address] [place] [phone] * (ABNORMAL) PROTHROMBIN TIME AND INR (06/29/2025 4:34 AM EST)ComponentValueRef RangeTest MethodAnalysis TimePerformed AtPathologist VndcleegvElwmors19.4(H) 9.7 - 12.9 sec06/29/2025 4:57 AM [facility] PATHOLOGY LABORATORYINR2.71(H)0.90 - 1.10108/30/2024 4:57 AM [facility] PATHOLOGY LABORATORYSpecimen (Source)Anatomical Location / LateralityCollection Method / VolumeCollection TimeReceived Time BloodBLOOD SPECIMEN / UnknownVenipuncture / Bonbicv4906/29/2025 4:34 AM EST 06/29/2025 4:44 AM EST Narrative Authorizing ProviderResult TypeResult Oral [facility] Final ResultPerforming OrganizationAddSurgical Specialty [facility] Hlthty/State/ZIP CodePhone Number [facility] PATHOLOG[facility] LABORATORY [address] [place] [phone] * TYPE AND SCREEN (06/29/2025 4:34 AM EST)ComponentValueRef RangeTest Method Analysis TimePerformed AtPathologist SignatureABO Rh TypeA Ljwvrohs08/19/2025 5:25 AM [facility] PATHOLOGY LABORATORYAb Screen WopnzaWujunaym01/19/2025 5:25 AM [facility] PATHOLOGY LABORATORYSpecimen Expiration Eysh1911598436043438/19/2025 5:25 AM [facility] PATHOLOGY LABORATORYABO Rh/Blanca/TXRX HistoryA Ddgdhpkm41/19/2025 5:25 AM [facility] PATHOLOGY LABORATORYSpecimen (Source)Anatomical Location / LateralityCollection Method / VolumeCollection TimeReceived TimeBloodBLOOD SPECIMEN / UnknownVenipuncture / Aylatpr8706/29/2025 4:34 AM EST06/29/2025 4:49 AM EST Narrative Authorizing ProviderResult TypeResult StatusDelight [facility] BLOOD BANKFinal ResultPerforming OrganizationAddressCity/State/ZIP CodePhone Number [facility] PATHOLOG[facility] LABORATORY [address] [place] [address] * (ABNORMAL) GLUCOSE, FINGERSTICK-IN OFFICE (06/28/2025 9:36 PM EST)Component ValueRef RangeTest MethodAnalysis TimePerformed AtPathologist Signature Glucose, XKK815(H)74 - 109 mg/dL06/28/2025 9:52 PM ESTNURSING GLUCOSE PROGRAM Specimen (Source)Anatomical Location / LateralityCollection Method / Volume Collection TimeReceived TimeBloodBLOOD SPECIMEN / Mmjsnlp2606/28/2025 9:36 PM EST06/28/2025 9:52 PM EST Narrative Authorizing ProviderResult TypeResult StatusTo Be AssignedEC BACK OFFICE LABS Final ResultPerforming OrganizationAddressCity/State/ZIP CodePhone Number NURSING GLUCOSE PROGRAM [address] [place] [address] * XR T-SPINE 3 VIEWS (06/28/2025 7:13 [...] and LAT ASSOCIATED DIAGNOSIS: ORDERING PROVIDER: JOSEPH WESTON TECHNOLOGISTS NOTE: COMPARISON: MR T-SPINE W/+W/O 06/27/2025 3:00 PM Procedure Note Jose Roberto Monte MD - 06/28/2025 EXAMINATION: XR T-SPINE 3 VIEWSPRO 06/28/2025 07:13 PM CLINICAL HISTORY: need to be done standing for T10 fx, only need AP andLAT ASSOCIATED DIAGNOSIS: ORDERING PROVIDER: JOSEPH WESTON TECHNOLOGISTS NOTE: COMPARISON: MR T-SPINE W/+W/O 06/27/2025 3:00 PM IMPRESSION: * Stable mild compression deformity involving the superior endplate ofT10 similar to the previous study. * Stable degenerative changes. * Stable wedge deformity of T5 * Small bilateral pleural effusions. * Partially imaged pacemaker. MACRO: None Authorizing ProviderResult TypeResult StatusJoseph Weston PA-CEC DIAGNOSTIC X-RAYFinal Result * XR [...] standing ASSOCIATED DIAGNOSIS: ORDERING PROVIDER: JOSEPH WESTON TECHNSHAN NOTE: COMPARISON: MR L-SPINE W/+W/O 06/27/2025 3:01 [...] ValueRef RangeTest MethodAnalysis TimePerformed AtPathologist Signature Glucose, HGW141(H)74 - 109 mg/dL06/28/2025 4:59 PM ESTNURSING GLUCOSE PROGRAM Specimen (Source)Anatomical Location / LateralityCollection Method / Volume Collection TimeReceived TimeBloodBLOOD SPECIMEN / Qmjayni8206/28/2025 4:49 PM EST06/28/2025 4:59 PM EST Narrative Authorizing ProviderResult TypeResult StatusTo Be AssignedEC BACK OFFICE LABS Final ResultPerforming OrganizationAddressCity/State/ZIP CodePhone Number NURSING GLUCOSE PROGRAM [address] [place] [address] * BLOOD CULTURE (06/28/2025 12:37 PM EST)ComponentValueRef RangeTest Method Analysis TimePerformed AtPathologist SignatureBlood CultureNo Ympset0907/03/2025 1:00 PM [facility] PATHOLOGY LABORATORYSpecimen (Source)Anatomical Location / LateralityCollection Method / VolumeCollection TimeReceived TimeBlood PERIPHERAL BLOOD SPECIMEN / UnknownVenipuncture / Hgyftmp7106/28/2025 12:37 PM EST06/28/2025 12:46 PM EST Narrative Authorizing ProviderResult TypeResult StatusMaribel Romero MDEC MICROBIOLOGY Final ResultPerforming OrganizationAddressCity/State/ZIP CodePhone Number [facility] PATHOLOG[facility] LABORATORY [address] [place] [phone] * (ABNORMAL) GLUCOSE, FINGERSTICK-IN OFFICE (06/28/2025 11:18 AM EST)Component ValueRef RangeTest MethodAnalysis TimePerformed AtPathologist Signature Glucose, PPH330(H)74 - 109 mg/dL06/28/2025 11:24 AM ESTNURSING GLUCOSE PROGRAM Specimen (Source)Anatomical Location / LateralityCollection Method / Volume Collection TimeReceived TimeBloodBLOOD SPECIMEN / Mtkvbzg7906/28/2025 11:18 AM EST06/28/2025 11:24 AM EST Narrative Authorizing ProviderResult TypeResult StatusTo Be AssignedEC BACK OFFICE LABS Final ResultPerforming OrganizationAddressCity/State/ZIP CodePhone Number NURSING GLUCOSE PROGRAM [address] [place] [phone] * (ABNORMAL) GLUCOSE, FINGERSTICK-IN OFFICE (06/28/2025 7:46 AM EST)Component ValueRef RangeTest MethodAnalysis TimePerformed AtPathologist Signature Glucose, XEP047(H)74 - 109 mg/dL06/28/2025 7:52 AM ESTNURSING GLUCOSE PROGRAM Specimen (Source)Anatomical Location / LateralityCollection Method / Volume Collection TimeReceived TimeBloodBLOOD SPECIMEN / Lpxeebk0606/28/2025 7:46 AM EST06/28/2025 7:52 AM EST Narrative Authorizing ProviderResult TypeResult StatusTo Be AssignedEC BACK OFFICE LABS Final ResultPerforming OrganizationAddressCity/State/ZIP CodePhone Number NURSING GLUCOSE PROGRAM [address] [place] [phone] * BLOOD CULTURE (06/28/2025 5:58 AM EST)ComponentValueRef RangeTest Method Analysis TimePerformed AtPathologist SignatureBlood CultureNo Odbotg7207/03/2025 7:01 AM [facility] PATHOLOGY LABORATORYSpecimen (Source)Anatomical Location / LateralityCollection Method / VolumeCollection TimeReceived TimeBlood PERIPHERAL BLOOD SPECIMEN / UnknownVenipuncture / Lczxplq0606/28/2025 5:58 AM EST06/28/2025 6:06 AM EST Narrative Authorizing ProviderResult TypeResult StatusCourtney Veronica MDEC MICROBIOLOGYFinal ResultPerforming OrganizationAddressty/State/ZIP CodePhone Number [facility] PATH[facility] LABORATORY [address] [place] [phone] * FERRITIN (06/28/2025 1:35 AM EST)ComponentValueRef RangeTest MethodAnalysis TimePerformed AtPathologist IflrosxjmDwfdlbgw703.223.9 - 336.2 ng/mL06/28/2025 12:49 PM [facility] PATHOLOGY LABORATORYSpecimen (Source)Anatomical Location / LateralityCollection Method / VolumeCollection TimeReceived TimeBloodBLOOD SPECIMEN / UnknownVenipuncture / Bszdojb0806/28/2025 1:35 AM EST06/28/2025 2:00 AM EST Narrative Authorizing ProviderResult TypeResult StatusMaribel [facility] Final ResultPerforming OrganizationAddressty/State/ZIP CodePhone Number [facility] LABORATORY [address] [place] [phone] * (ABNORMAL) IRON AND TIBC (06/28/2025 1:35 AM EST)ComponentValueRef RangeTest MethodAnalysis TimePerformed AtPathologist ItdlkahreHkzd53(L)50 - 212 ug/dL 06/28/2025 12:31 PM [facility] PATHOLOGY LABORATORYIron Saturation5(L)20 - 55 % 06/28/2025 12:31 PM ESTAD[facility] IMXIUSTHKZKEHL185393 - 300 ug/mL 06/28/2025 12:31 PM [facility] ETALOOXAXZGbxptkbistr064(L)203 - 362 mg/dL06/28/2025 12:31 PM [facility] PATHOLOGY LABORATORYSpecimen (Source) Anatomical Location / LateralityCollection Method / VolumeCollection Time Received TimeBloodBLOOD SPECIMEN / UnknownVenipuncture / Utswlrk8706/28/2025 1:35 AM EST06/28/2025 2:00 AM EST Narrative Authorizing ProviderResult TypeResult StatusMaribel [facility] Final ResultPerforming OrganizationAddressCity/State/ZIP CodePhone Number [facility] PATHOLOG[facility] LABORATORY [address] [place] [phone] * (ABNORMAL) CBC WITH DIFFERENTIAL (06/28/2025 1:35 AM EST)ComponentValueRef RangeTest MethodAnalysis TimePerformed AtPathologist SignatureWBC7.04.5 - 11.5 K/uL06/28/2025 2:09 AM [facility] PATHOLOGY LABORATORYRBC3.31(L)4.50 - 5.90 M/uL 06/28/2025 2:09 AM [facility] PATHOLOGY LABORATORYHemoglobin8.8(L)13.9 - 16.3 g/dL 06/28/2025 2:09 AM [facility] XAXKXZWOTAUpriguornt39.6(L)41.0 - 53.0 % 06/28/2025 2:09 AM [facility] PATH[facility] FIWZHWDTMJAOO6725 - 100 fL06/28/2025 2:09 AM [facility] PATH[facility] EXQSGNSYQRDFK85.626.0 - 34.0 pg06/28/2025 2:09 AM [facility] YUNXBFRLHLXIWG56.032.0 - 35.9 g/dL06/28/2025 2:09 AM [facility] GKOLVIUEASBktxsyzd813(H)150 - 400 K/uL06/28/2025 2:09 AM [facility] PATHOLOGY LABORATORYRDW-CV15.3(H)11.5 - 14.5 %06/28/2025 2:09 AM [facility] PATHOLOGY LABORATORYMPV9.97.5 - 11.2 fL06/28/2025 2:09 AM [facility] UAZXKLUVHIFtpazhbyvhh14.931.0 - 76.0 %06/28/2025 2:09 AM [facility] PATHOLOGY LABORATORYNeutrophil #5.011.50 - 8.00 K/uL06/28/2025 2:09 AM [facility] TGXOODRHRZDzdzplamsgh33.5(L)24.0 - 44.0 %06/28/2025 2:09 AM [facility] PATHOLOGY LABORATORYLymphocytes #0.94(L)1.00 - 4.80 K/uL06/28/2025 2:09 AM [facility] JGQJUZGYRQCevlhezfx18.0(H)2.0 - 11.0 %06/28/2025 2:09 AM [facility] PATHOLOGY LABORATORYMonocyte #0.840.20 - 1.00 K/uL06/28/2025 2:09 AM [facility] PATHOLOGY LABORATORYEosinophil1.80.1 - 4.0 %06/28/2025 2:09 AM [facility] PATHOLOGY LABORATORYEosinophil #0.130.00 - 0.70 K/uL06/28/2025 2:09 AM [facility] PATHOLOGY LABORATORYBasophils0.7<=1.9 %06/28/2025 2:09 AM [facility] PATHOLOGY LABORATORYBasophil #0.050.00 - 0.20 K/uL06/28/2025 2:09 AM [facility] PATHOLOGY LABORATORYSpecimen (Source)Anatomical Location / LateralityCollection Method / VolumeCollection TimeReceived TimeBloodBLOOD SPECIMEN / UnknownVenipuncture / Vjyopal4606/28/2025 1:35 AM EST06/28/2025 2:00 AM EST Narrative Authorizing ProviderResult TypeResult StatusGhdonnie ESPARZA LAB ORDER ONLY Final ResultPerforming OrganizationAddressCity/State/ZIP CodePhone Number [facility] LABORATORY [address] [place] [phone] * (ABNORMAL) BASIC METABOLIC PANEL (06/28/2025 1:35 AM EST)ComponentValueRef RangeTest MethodAnalysis TimePerformed AtPathologist TodbdlprvClqgjvt067(H)74 - 109 mg/dL06/28/2025 2:34 AM [facility] MQZTDTDFHEMwhglv707(L)136 - 145 mmol/L108/29/2024 2:34 AM [facility] PATHOLOGY LABORATORYPotassium4.63.5 - 5.0 mmol/L108/29/2024 2:34 AM [facility] PATHOLOGY LABORATORYCarbon Bjskkms0683 - 31 mmol/L108/29/2024 2:34 AM [facility] CGFSRLJCZQDdfqrdhz55863 - 107 mmol/L 06/28/2025 2:34 AM [facility] PATHOLOGY LABORATORYBlood Urea Xzzrgzgp718 - 25 mg/dL06/28/2025 2:34 AM [facility] PATHOLOGY LABORATORYCreatinine0.950.70 - 1.30 mg/dL06/28/2025 2:34 AM [facility] PATHOLOGY LABORATORYCalcium8.0(L)8.6 - 10.3 mg/dL06/28/2025 2:34 AM [facility] PATHOLOGY LABORATORYAnion Wlv0043 - 20 06/28/2025 2:34 AM [facility] PATHOLOGY LABORATORYEstimated GFR (CKD-EPI)77>=60 mL/min/1.16qvu7308/29/2024 2:34 AM EST[facility] PATHOLOGY LABORATORYComment: 2020 CKD EPI Equation using [...] Med 1 Vol. 385 Issue 19 Pages 5931-3958 Specimen (Source)Anatomical Location / LateralityCollection Method / Volume Collection TimeReceived TimeBloodBLOOD SPECIMEN / UnknownVenipuncture / Unknown 06/28/2025 1:35 AM EST06/28/2025 2:00 AM EST Narrative Authorizing ProviderResult TypeResult StatusSudarshan Lovett MD98 GENERAL LAB Final ResultPerforming OrganizationAddressCity/State/ZIP CodePhone Number [facility] PATHOLOG[facility] LABORATORY [address] [place] [phone] * (ABNORMAL) GLUCOSE, FINGERSTICK-IN OFFICE (06/27/2025 10:12 PM EST)Component ValueRef RangeTest MethodAnalysis TimePerformed AtPathologist Signature Glucose, CXK323(H)74 - 109 mg/dL06/27/2025 10:18 PM ESTNURSING GLUCOSE PROGRAM Specimen (Source)Anatomical Location / LateralityCollection Method / Volume Collection TimeReceived TimeBloodBLOOD SPECIMEN / Onmpcjw1906/27/2025 10:12 PM EST06/27/2025 10:18 PM EST Narrative Authorizing ProviderResult TypeResult StatusTo Be AssignedEC BACK OFFICE LABS Final ResultPerforming OrganizationAddressCity/State/ZIP CodePhone Number NURSING GLUCOSE PROGRAM [address] [place] [address] * (ABNORMAL) GLUCOSE, FINGERSTICK-IN OFFICE (06/27/2025 4:02 PM EST)Component ValueRef RangeTest MethodAnalysis TimePerformed AtPathologist Signature Glucose, JDD491(H)74 - 109 mg/dL06/27/2025 4:09 PM ESTNURSING GLUCOSE PROGRAM Specimen (Source)Anatomical Location / LateralityCollection Method / Volume Collection TimeReceived TimeBloodBLOOD SPECIMEN / Uoexcsm6206/27/2025 4:02 PM EST06/27/2025 4:09 PM EST Narrative Authorizing ProviderResult TypeResult StatusTo Be AssignedEC BACK OFFICE LABS Final ResultPerforming OrganizationAddressCity/State/ZIP CodePhone Number NURSING GLUCOSE PROGRAM [address] [place] [address] * MR T-SPINE W/+W/O (06/27/2025 2:50 PM [...] INTRA-PROCEDURE MEDS: Gadoterate Meglumine (DOTAREM) 10 MMOL/20ML ihehyaud90 mL Route: Intravenous FINDINGS: The study has [...] CT. MACRO: None Authorizing ProviderResult TypeResult StatusDelight [facility] MRIFinal Result * MR L-SPINE W/+W/O (06/27/2025 [...] study is limited and suboptimal with poor hnwaft-kq-jiwll ratio. Incomplete fat-saturated imaging. Numbering: The most [...] INTRA-PROCEDURE MEDS: Gadoterate Meglumine (DOTAREM) 10 MMOL/20ML qtzuhucd48 mL Route: Intravenous FINDINGS: The study is limited and suboptimal with poor mgebza-qy-qevqg ratio.Incomplete fat-saturated imaging. Numbering: The most inferior [...] likely. MACRO: None Authorizing ProviderResult TypeResult StatusDelight [facility] MDEC MRIFinal Result * (ABNORMAL) GLUCOSE, FINGERSTICK-IN OFFICE (06/27/2025 8:20 AM EST)Component ValueRef RangeTest MethodAnalysis TimePerformed AtPathologist Signature Glucose, IGT408(H)74 - 109 mg/dL06/27/2025 8:26 AM ESTNURSING GLUCOSE PROGRAM Specimen (Source)Anatomical Location / LateralityCollection Method / Volume Collection TimeReceived TimeBloodBLOOD SPECIMEN / Bzwphan8906/27/2025 8:20 AM EST06/27/2025 8:26 AM EST Narrative Authorizing ProviderResult TypeResult StatusTo Be AssignedEC BACK OFFICE LABS Final ResultPerforming OrganizationAddressCity/State/ZIP CodePhone Number NURSING GLUCOSE PROGRAM [address] [place] [phone] * (ABNORMAL) CBC WITH DIFFERENTIAL (06/27/2025 5:43 AM EST)ComponentValueRef RangeTest MethodAnalysis TimePerformed AtPathologist SignatureWBC7.94.5 - 11.5 K/uL06/27/2025 6:22 AM [facility] PATHOLOGY LABORATORYRBC3.38(L)4.50 - 5.90 M/uL 06/27/2025 6:22 AM [facility] PATHOLOGY LABORATORYHemoglobin9.1(L)13.9 - 16.3 g/dL 06/27/2025 6:22 AM [facility] PATH[facility] CAEOXZLTYPAxpcaqxnsm74.1(L)41.0 - 53.0 % 06/27/2025 6:22 AM [facility] PATH[facility] ACOZCCHBUJVLS1963 - 100 fL06/27/2025 6:22 AM [facility] PATH[facility] NLIKZSJBMONAE68.826.0 - 34.0 pg06/27/2025 6:22 AM [facility] PATH[facility] CLAQQMQFZLKLQO90.532.0 - 35.9 g/dL06/27/2025 6:22 AM [facility] PATH[facility] LRMLNEGVMTLapmuezd265(H)150 - 400 K/uL06/27/2025 6:22 AM [facility] PATHOLOGY LABORATORYRDW-CV15.3(H)11.5 - 14.5 %06/27/2025 6:22 AM [facility] PATH[facility] MXBSEXHNZKJZX30.07.5 - 11.2 fL06/27/2025 6:22 AM [facility] PATH[facility] KULXPJODRNZzxcdiatiqd58.631.0 - 76.0 %06/27/2025 6:22 AM [facility] PATHOLOGY LABORATORYNeutrophil #5.871.50 - 8.00 K/uL06/27/2025 6:22 AM [facility] PATHOLOG[facility] UXQRRMZCBFVgqmaklpeuo59.9(L)24.0 - 44.0 %06/27/2025 6:22 AM [facility] PATHOLOGY LABORATORYLymphocytes #0.86(L)1.00 - 4.80 K/uL06/27/2025 6:22 AM [facility] QDRFNQFVGAAexypmldf16.3(H)2.0 - 11.0 %06/27/2025 6:22 AM [facility] LABORATORYMonocyte #0.970.20 - 1.00 K/uL06/27/2025 6:22 AM [facility] PATHOLOGY LABORATORYEosinophil1.70.1 - 4.0 %06/27/2025 6:22 AM [facility] PATHOLOGY LABORATORYEosinophil #0.130.00 - 0.70 K/uL06/27/2025 6:22 AM [facility] PATHOLOGY LABORATORYBasophils0.6<=1.9 %06/27/2025 6:22 AM [facility] PATHOLOGY LABORATORYBasophil #0.040.00 - 0.20 K/uL06/27/2025 6:22 AM [facility] PATHOLOGY LABORATORYSpecimen (Source)Anatomical Location / LateralityCollection Method / VolumeCollection TimeReceived TimeBloodBLOOD SPECIMEN / UnknownVenipuncture / Cfgmzbz5006/27/2025 5:43 AM EST06/27/2025 6:10 AM EST Narrative Authorizing ProviderResult TypeResult StatusSudarshan ESPARZA LAB ORDER ONLY Final ResultPerforming OrganizationAddressCity/State/ZIP CodePhone Number [facility] PATHOLOG[facility] LABORATORY [address] [place] [phone] * (ABNORMAL) VITAMIN B12 (CYANOCOBALAMIN) (06/27/2025 5:43 AM EST)ComponentValue Ref RangeTest MethodAnalysis TimePerformed AtPathologist SignatureVitamin B12 971(H)180 - 914 pg/mL06/27/2025 7:07 AM [facility] PATHOLOGY LABORATORYSpecimen (Source)Anatomical Location / LateralityCollection Method / VolumeCollection TimeReceived TimeBloodBLOOD SPECIMEN / UnknownVenipuncture / Nproqdl1406/27/2025 5:43 AM EST06/27/2025 6:10 AM EST Narrative [facility] PATH[facility] LABORATORY - 06/27/2025 7:07 AM EST Deficient: <= 145 pg/mL Insufficient: 145 - 180 pg/mL Sufficient: 180 - 914 pg/mL ?? Authorizing ProviderResult TypeResult StatusMaribel [facility] LAB Final ResultPerforming OrganizationAddressCity/State/ZIP CodePhone Number [facility] PATHOLOG[facility] LABORATORY [address] [place] [phone] * FOLIC ACID (06/27/2025 5:43 AM EST)ComponentValueRef RangeTest MethodAnalysis TimePerformed AtPathologist SignatureFolic Acid, Serum19.05.9 - 24.7 ng/mL 06/27/2025 7:07 AM [facility] PATHOLOGY LABORATORYSpecimen (Source)Anatomical Location / LateralityCollection Method / VolumeCollection TimeReceived Time BloodBLOOD SPECIMEN / UnknownVenipuncture / Wjxhfwf0406/27/2025 5:43 AM EST 06/27/2025 6:10 AM EST Narrative Authorizing ProviderResult TypeResult Oral [facility] Final ResultPerforming OrganizationAddressCity/State/ZIP CodePhone Number [facility] PATHOLOG[facility] LABORATORY [address] [place] [phone] * (ABNORMAL) HAPTOGLOBIN (06/27/2025 5:43 AM EST)ComponentValueRef RangeTest MethodAnalysis TimePerformed AtPathologist XpajmxixfGbcbubwmeff971(H)44 - 215 mg/dL06/27/2025 7:35 AM [facility] PATHOLOGY LABORATORYSpecimen (Source)Anatomical Location / LateralityCollection Method / VolumeCollection TimeReceived Time BloodBLOOD SPECIMEN / UnknownVenipuncture / Duzkwzv8506/27/2025 5:43 AM EST 06/27/2025 6:10 AM EST Narrative Authorizing ProviderResult TypeResult Oral [facility] LAB Final ResultPerforming OrganizationAddressty/State/ZIP CodePhone Number [facility] PATHOLOG[facility] LABORATORY [address] [place] [address] * LDH (06/27/2025 5:43 AM EST)ComponentValueRef RangeTest MethodAnalysis Time Performed AtPathologist SnbjneskaXB759361 - 271 IU/L108/28/2024 6:43 AM ESTAD[facility] LABORATORYSpecimen (Source)Anatomical Location / Laterality Collection Method / VolumeCollection TimeReceived TimeBloodBLOOD SPECIMEN / UnknownVenipuncture / Ppbwlbm0806/27/2025 5:43 AM EST06/27/2025 6:10 AM EST Narrative Authorizing ProviderResult TypeResult StatusMaribel [facility] LAB Final ResultPerforming OrganizationAddressty/State/ZIP CodePhone Number [facility] PATHOLOG[facility] LABORATORY [address] [place] [phone] * FERRITIN (06/27/2025 5:43 AM EST)ComponentValueRef RangeTest MethodAnalysis TimePerformed AtPathologist XnkzvvxssOnfqrxsf842.023.9 - 336.2 ng/mL06/27/2025 7:07 AM [facility] PATHOLOGY LABORATORYSpecimen (Source)Anatomical Location / LateralityCollection Method / VolumeCollection TimeReceived TimeBloodBLOOD SPECIMEN / UnknownVenipuncture / Boohbsa6806/27/2025 5:43 AM EST06/27/2025 6:10 AM EST Narrative Authorizing ProviderResult TypeResult StatusDelrj PONCE GENERAL LAB Final ResultPerforming OrganizationAddressty/State/ZIP CodePhone Number [facility] PATHOLOG[facility] LABORATORY [address] [place] [phone] * (ABNORMAL) IRON AND TIBC (06/27/2025 5:43 AM EST)ComponentValueRef RangeTest MethodAnalysis TimePerformed AtPathologist PjndxdyerBlet61(L)50 - 212 ug/dL 06/27/2025 7:07 AM [facility] PATHOLOGY LABORATORYIron Saturation8(L)20 - 55 % 06/27/2025 7:07 AM [facility] JRSJMZHFVSSQXY608155 - 300 ug/mL06/27/2025 7:07 AM [facility] BEBSNESRTWNsraenhgprw400(L)203 - 362 mg/dL06/27/2025 7:07 AM ESTAD[facility] LABORATORYSpecimen (Source)Anatomical Location / LateralityCollection Method / VolumeCollection TimeReceived TimeBloodBLOOD SPECIMEN / UnknownVenipuncture / Eewoqga9706/27/2025 5:43 AM EST06/27/2025 6:10 AM EST Narrative Authorizing ProviderResult TypeResult StatusMaribel P[facility]AL LAB Final ResultPerforming OrganizationAddSurgical Special[facility] Hlthty/State/ZIP CodePhone Number [facility] PATHOLOGY LABORATORY [address] [place] [phone] * (ABNORMAL) BASIC METABOLIC PANEL (06/27/2025 5:43 AM EST)ComponentValueRef RangeTest MethodAnalysis TimePerformed AtPathologist OevmavziuLkrdlur188(H)74 - 109 mg/dL06/27/2025 7:07 AM ESTS PATHOLOGY EYCKRJPUAQScmmtx584(L)136 - 145 mmol/L108/28/2024 7:07 AM [facility] PATHOLOGY LABORATORYPotassium4.23.5 - 5.0 mmol/L108/28/2024 7:07 AM [facility] PATHOLOGY LABORATORYCarbon Jwesgvw5639 - 31 mmol/L108/28/2024 7:07 AM ESTS PATHOLOGY WAWMDUAKRJCxhylajo71181 - 107 mmol/L 06/27/2025 7:07 AM EST[facility] PATHOLOGY LABORATORYBlood Urea Alwonvqh202 - 25 mg/dL06/27/2025 7:07 AM [facility] PATHOLOGY LABORATORYCreatinine0.920.70 - 1.30 mg/dL06/27/2025 7:07 AM [facility] PATHOLOGY LABORATORYCalcium8.1(L)8.6 - 10.3 mg/dL06/27/2025 7:07 AM [facility] PATHOLOGY LABORATORYAnion Vme3322 - 20 06/27/2025 7:07 AM [facility] PATHOLOGY LABORATORYEstimated GFR (CKD-EPI)80>=60 mL/min/1.70sku6208/28/2024 7:07 AM [facility] PATHOLOGY LABORATORYComment: 2020 CKD EPI Equation using Creatinine without Race Comment: ??Estimated glomerular filtration rate (eGFR) is calculated without a race coefficient. Values should be interpreted in the context of the patient's full clinical presentation. Reference: 1. Geoff C, Shirley M, [place], et al.. A Unifying Approach for GFR Estimation: Recommendations of the NKF-ASN Task Force on Reassessing the Inclusion of Race in Diagnosing Kidney Disease. AmericanJournal of Kidney Diseases 202;79(2):268-88.e1. 2. N Engl J Med 1 Vol. 385 Issue 19 Pages 8437-3477 Specimen (Source)Anatomical Location / LateralityCollection Method / Volume Collection TimeReceived TimeBloodBLOOD SPECIMEN / UnknownVenipuncture / Unknown 06/27/2025 5:43 AM EST06/27/2025 6:10 AM EST Narrative Authorizing ProviderResult TypeResult StatusGhdonnie Lovett MD98 GENERAL LAB Final ResultPerforming OrganizationAddressCity/State/ZIP CodePhone Number [facility] PATHOLOGY LABORATORY [address] [place] [address] * (ABNORMAL) GLUCOSE, FINGERSTICK-IN OFFICE (06/26/2025 9:20 PM EST)Component ValueRef RangeTest MethodAnalysis TimePerformed AtPathologist Signature Glucose, ZZN261(H)74 - 109 mg/dL06/26/2025 9:26 PM ESTNURSING GLUCOSE PROGRAM Specimen (Source)Anatomical Location / LateralityCollection Method / Volume Collection TimeReceived TimeBloodBLOOD SPECIMEN / Znarszg8906/26/2025 9:20 PM EST06/26/2025 9:26 PM EST Narrative Authorizing ProviderResult TypeResult StatusTo Be AssignedEC BACK OFFICE LABS Final ResultPerforming OrganizationAddressCity/State/ZIP CodePhone Number NURSING GLUCOSE PROGRAM [address] [place] [phone] * (ABNORMAL) GLUCOSE, FINGERSTICK-IN OFFICE (06/26/2025 4:31 PM EST)Component ValueRef RangeTest MethodAnalysis TimePerformed AtPathologist Signature Glucose, OIM974(H)74 - 109 mg/dL06/26/2025 4:37 PM ESTNURSING GLUCOSE PROGRAM Specimen (Source)Anatomical Location / LateralityCollection Method / Volume Collection TimeReceived TimeBloodBLOOD SPECIMEN / Xezyood3006/26/2025 4:31 PM EST06/26/2025 4:37 PM EST Narrative Authorizing ProviderResult TypeResult StatusTo Be AssignedEC BACK OFFICE LABS Final ResultPerforming OrganizationAddressCity/State/ZIP CodePhone Number NURSING GLUCOSE PROGRAM [address] [place] [address] * (ABNORMAL) BLOOD CULTURE (06/26/2025 3:09 PM EST)ComponentValueRef RangeTest MethodAnalysis TimePerformed AtPathologist SignatureBlood CulturePositive Culture Report(A)07/01/2025 10:54 AM [facility] PATHOLOGY LABORATORYBlood CultureAnaerobic bottle yields Staphylococcus aureus DORON 07/01/2025 10:54 AM [facility] PATHOLOGY LABORATORYGram StainAnaerobic bottle yields Gram Positive Cocci In Xmzyanho91/21/2025 10:54 AM [facility] PATHOLOGY LABORATORY Specimen (Source)Anatomical Location / LateralityCollection Method / Volume Collection TimeReceived TimeBloodPERIPHERAL BLOOD SPECIMEN / UnknownVenipuncture / Teaampm6306/26/2025 3:09 PM EST06/26/2025 3:18 PM EST Narrative OrganismAntibioticMethodSusceptibilityStaphylococcus aureusDaptomycinMIC 0.25 DORON: Sensitive Staphylococcus aureusLinezolidMIC 2 DORON: Sensitive Staphylococcus aureusOxacillinMIC <=0.25 DORON: Sensitive Staphylococcus aureusTrimethoprim + SulfamethoxazoleMIC <=10 DORON: Sensitive Staphylococcus aureusVancomycinMIC <=0.5 DORON: Sensitive Authorizing ProviderResult TypeResult StatusDelight [facility] MICROBIOLOGY Final ResultPerforming OrganizationAddressCity/State/ZIP CodePhone Number [facility] PATHOLOGY LABORATORY [address] [place] [phone] * BLOOD CULTURE (06/26/2025 3:00 PM EST)ComponentValueRef RangeTest Method Analysis TimePerformed AtPathologist SignatureBlood CultureNo Pxopbg9207/01/2025 4:02 PM [facility] PATHOLOGY LABORATORYSpecimen (Source)Anatomical Location / LateralityCollection Method / VolumeCollection TimeReceived TimeBlood PERIPHERAL BLOOD SPECIMEN / UnknownVenipuncture / Xbutdvh5606/26/2025 3:00 PM EST06/26/2025 3:18 PM EST Narrative [facility] PATHOLOGY LABORATORY - 07/01/2025 4:02 PM EST The results may be compromised due to inadequate volume of fluid received. A negative result does not rule out an infectious process. Authorizing ProviderResult TypeResult StatusMaribel [facility] MICROBIOLOGY Final ResultPerforming OrganizationAddressCity/State/ZIP CodePhone Number [facility] PATHOLOGY LABORATORY [address] [place] [phone] * OCCULT BLOOD, STOOL (06/26/2025 11:39 AM EST)ComponentValueRef RangeTest MethodAnalysis TimePerformed AtPathologist SignatureOccult Blood, Stool UxjocmemArkwcxtx19/16/2025 12:33 PM [facility] PATHOLOGY LABORATORYCollection Date 06/26/2512 12:33 PM [facility] PATHOLOGY LABORATORYSpecimen (Source) Anatomical Location / LateralityCollection Method / VolumeCollection Time Received TimeStoolSTOOL SPECIMEN / Ewbocld1506/26/2025 11:39 AM EST06/26/2025 11:45 AM EST Narrative Authorizing ProviderResult TypeResult StatusSudarshan PONCE GENERAL LAB Final ResultPerforming OrganizationAddressCity/State/ZIP CodePhone Number [facility] PATHOLOGY LABORATORY [address] [place] [phone] * (ABNORMAL) GLUCOSE, FINGERSTICK-IN OFFICE (06/26/2025 11:34 AM EST)Component ValueRef RangeTest MethodAnalysis TimePerformed AtPathologist Signature Glucose, XNO167(H)74 - 109 mg/dL06/26/2025 11:40 AM ESTNURSING GLUCOSE PROGRAM Specimen (Source)Anatomical Location / LateralityCollection Method / Volume Collection TimeReceived TimeBloodBLOOD SPECIMEN / Lwbzjvj3506/26/2025 11:34 AM EST06/26/2025 11:40 AM EST Narrative Authorizing ProviderResult TypeResult StatusTo Be AssignedEC BACK OFFICE LABS Final ResultPerforming OrganizationAddressCity/State/ZIP CodePhone Number NURSING GLUCOSE PROGRAM [address] [place], [place] [phone] * (ABNORMAL) GLUCOSE, FINGERSTICK-IN OFFICE (06/26/2025 7:54 AM EST)Component ValueRef RangeTest MethodAnalysis TimePerformed AtPathologist Signature Glucose, POC70(L)74 - 109 mg/dL06/26/2025 7:59 AM ESTNURSING GLUCOSE PROGRAM Specimen (Source)Anatomical Location / LateralityCollection Method / Volume Collection TimeReceived TimeBloodBLOOD SPECIMEN / Bflbjjx6906/26/2025 7:54 AM EST06/26/2025 7:59 AM EST Narrative Authorizing ProviderResult TypeResult StatusTo Be AssignedEC BACK OFFICE LABS Final ResultPerforming OrganizationAddressCity/State/ZIP CodePhone Number NURSING GLUCOSE PROGRAM [address] [place], [place] [phone] * PROCALCITONIN (06/26/2025 4:10 AM EST)ComponentValueRef RangeTest Method Analysis TimePerformed AtPathologist SignatureProcalcitonin0.25<0.50 ng/mL 06/26/2025 8:18 PM [facility] PATHOLOGY LABORATORYComment: Procalcitonin Concentrations < 0.50 ng/mL [...] GENERAL LAB Final ResultPerforming OrganizationAddressty/State/ZIP CodePhone Number [facility] PATHOLOGY LABORATORY [address] [place] [phone] * (ABNORMAL) ERYTHROCYTE SEDIMENTATION RATE (06/26/2025 4:10 AM EST)Component ValueRef RangeTest MethodAnalysis TimePerformed AtPathologist SignatureSed Rate (ESR)37(H)<=20 mm/Hr06/26/2025 12:55 PM [facility] PATHOLOGY LABORATORY Specimen (Source)Anatomical Location / LateralityCollection Method / Volume Collection TimeReceived TimeBloodBLOOD SPECIMEN / UnknownVenipuncture / Grmmnni1106/26/2025 4:10 AM EST06/26/2025 4:18 AM EST Narrative Authorizing ProviderResult TypeResult StatusJacqueline PONCE GENERAL LAB Final ResultPerforming OrganizationAddressty/State/ZIP CodePhone Number [facility] PATHOLOGY LABORATORY [address] [place] [phone] * (ABNORMAL) C-REACTIVE PROTEIN (06/26/2025 4:10 AM EST)ComponentValueRef Range Test MethodAnalysis TimePerformed AtPathologist SignatureC-Reactive Protein8.9 (H)<0.5 mg/dL06/26/2025 1:36 PM [facility] PATHOLOGY LABORATORYSpecimen (Source) Anatomical Location / LateralityCollection Method / VolumeCollection Time Received TimeBloodBLOOD SPECIMEN / UnknownVenipuncture / Sdwejub5706/26/2025 4:10 AM EST06/26/2025 4:17 AM EST Narrative Authorizing ProviderResult TypeResult StatusJacqueline PONCE GENERAL LAB Final ResultPerforming OrganizationAddS[facility] Hlthty/State/ZIP CodePhone Number [facility] PATHOLOGY LABORATORY [address] [place] [phone] * (ABNORMAL) MANUAL DIFF AND MORPH (06/26/2025 4:10 AM EST)ComponentValueRef RangeTest MethodAnalysis TimePerformed AtPathologist SignatureSegmented Zxomuzrsiiw12.0(H)31.0 - 76.0 %06/26/2025 5:41 AM [facility] PATHOLOGY LABORATORY Lymphocytes7.0(L)24.0 - 44.0 %06/26/2025 5:41 AM [facility] PATHOLOGY LABORATORY Reactive Lymph1%06/26/2025 5:41 AM [facility] PATHOLOGY LABORATORYMonocytes6.02.0 - 11.0 %06/26/2025 5:41 AM [facility] PATHOLOGY LABORATORYTotal Cells Bhxfjpi322 06/26/2025 5:41 AM [facility] PATHOLOGY LABORATORYFragmented QVJWqt3306/26/2025 5:41 AM [facility] PATHOLOGY WLHJGLNVAFJvgyxndpvtUvw42/16/2025 5:41 AM [facility] PATHOLOGY LABORATORYTarget WryywTizfuitv59/16/2025 5:41 AM [facility] PATHOLOGY LABORATORYBurr BbzmxObc75/16/2025 5:41 AM [facility] PATHOLOGY LABORATORY JwmcpyvnwjkeFxe00/16/2025 5:41 AM [facility] PATHOLOGY LABORATORYSegmented Neutrophil #9.55(H)1.50 - 8.00 K/uL06/26/2025 5:41 AM [facility] PATHOLOGY LABORATORYLymphocytes #0.78(L)1.00 - 4.80 K/uL06/26/2025 5:41 AM [facility] PATHOLOGY LABORATORYMonocyte #0.670.20 - 1.00 K/uL06/26/2025 5:41 AM [facility] PATHOLOGY LABORATORYReactiveLymph #0.11K/uL06/26/2025 5:41 AM [facility] PATHOLOGY LABORATORYSpecimen (Source)Anatomical Location / LateralityCollection Method / VolumeCollection TimeReceived TimeBloodBLOOD SPECIMEN / UnknownVenipuncture / Xbvvadz7506/26/2025 4:10 AM EST06/26/2025 4:18 AM EST Narrative Authorizing ProviderResult TypeResult StatusGhassacayla ESPARZA LAB ORDER ONLY Final ResultPerforming OrganizationAddressCity/State/ZIP CodePhone Number [facility] PATHOLOGY LABORATORY [address] [place] [phone] * (ABNORMAL) CBC WITH DIFFERENTIAL (06/26/2025 4:10 AM EST)ComponentValueRef RangeTest MethodAnalysis TimePerformed AtPathologist VhsmhjdadHUG89.14.5 - 11.5 K/uL06/26/2025 5:41 AM [facility] PATHOLOGY LABORATORYRBC3.32(L)4.50 - 5.90 M/uL06/26/2025 5:41 AM [facility] PATHOLOGY LABORATORYHemoglobin8.7(L)13.9 - 16.3 g/dL06/26/2025 5:41 AM [facility] PATHOLOGY QEPWBFEKFBLweshgwyxq88.8(L)41.0 - 53.0 %06/26/2025 5:41 AM [facility] PATHOLOGY VXPZZGBNWXIZI3933 - 100 fL06/26/2025 5:41 AM [facility] PATHOLOGY ZZQGQGJQTGMIB30.226.0 - 34.0 pg06/26/2025 5:41 AM EST [facility] PATHOLOGY TAJIKNYSQJUVKM58.532.0 - 35.9 g/dL06/26/2025 5:41 AM [facility] PATHOLOGY OHVXQFBKYYMylobzit807(H)150 - 400 K/uL06/26/2025 5:41 AM [facility] PATHOLOGY LABORATORYRDW-CV15.6(H)11.5 - 14.5 %06/26/2025 5:41 AM [facility] PATHOLOGY LABORATORYMPV9.97.5 - 11.2 fL06/26/2025 5:41 AM [facility] PATHOLOGY LABORATORYSpecimen (Source)Anatomical Location / LateralityCollection Method / VolumeCollection TimeReceived TimeBloodBLOOD SPECIMEN / UnknownVenipuncture / Gfjnyfz9906/26/2025 4:10 AM EST06/26/2025 4:18 AM EST Narrative Authorizing ProviderResult TypeResult StatusGhassacayla Lovett MDEC LAB ORDER ONLY Final ResultPerforming OrganizationAddressCity/State/ZIP CodePhone Number [facility] PATHOLOGY LABORATORY [address] [place] [phone] * (ABNORMAL) BASIC METABOLIC PANEL (06/26/2025 4:10 AM EST)ComponentValueRef RangeTest MethodAnalysis TimePerformed AtPathologist FzbligqleEzhtveq152(H)74 - 109 mg/dL06/26/2025 4:41 AM [facility] PATHOLOGY RKEVQSQSCWRuvglx125(L)136 - 145 mmol/L108/27/2024 4:41 AM [facility] PATHOLOGY LABORATORYPotassium4.23.5 - 5.0 mmol/L108/27/2024 4:41 AM [facility] PATHOLOGY LABORATORYCarbon Vsncocx9284 - 31 mmol/L108/27/2024 4:41 AM [facility] PATHOLOGY SYXAERMXKOYjjjsgan85333 - 107 mmol/L 06/26/2025 4:41 AM [facility] PATHOLOGY LABORATORYBlood Urea Ypgcuiqm054 - 25 mg/dL06/26/2025 4:41 AM [facility] PATHOLOGY LABORATORYCreatinine0.960.70 - 1.30 mg/dL06/26/2025 4:41 AM [facility] PATHOLOGY LABORATORYCalcium8.1(L)8.6 - 10.3 mg/dL06/26/2025 4:41 AM [facility] PATHOLOGY LABORATORYAnion Pcp4914 - 20 06/26/2025 4:41 AM [facility] PATHOLOGY LABORATORYEstimated GFR (CKD-EPI)76>=60 mL/min/1.71mge0008/27/2024 4:41 AM [facility] PATHOLOGY LABORATORYComment: 2020 CKD EPI [...] Med 1 Vol. 385 Issue 19 Pages 4172-6850 Specimen (Source)Anatomical Location / LateralityCollection Method / Volume Collection TimeReceived TimeBloodBLOOD SPECIMEN / UnknownVenipuncture / Unknown 06/26/2025 4:10 AM EST06/26/2025 4:17 AM EST Narrative Authorizing ProviderResult TypeResult StatusGhdonnie Lovett MD98 GENERAL LAB Final ResultPerforming OrganizationAddressCity/State/ZIP CodePhone Number [facility] PATHOLOGY LABORATORY [address] [place] [phone] * CONFIRMATION ABO/RH (06/26/2025 4:10 AM EST)ComponentValueRef RangeTest Method Analysis TimePerformed AtPathologist SignatureABO Rh TypeA Bunpmnwl18/16/2025 4:46 AM [facility] PATHOLOGY LABORATORYSpecimen Expiration [id number] 06/26/2025 4:46 AM [facility] PATHOLOGY LABORATORYABO Rh/Blanca/TXRX HistoryA Jqkknejq77/16/2025 4:46 AM [facility] PATHOLOGY LABORATORYSpecimen (Source) Anatomical Location / LateralityCollection Method / VolumeCollection Time Received TimeBloodBLOOD SPECIMEN / UnknownVenipuncture / Lsepjqt5106/26/2025 4:10 AM EST06/26/2025 4:19 AM EST Narrative Authorizing ProviderResult TypeResult StatusSudarshan ESPARZA BLOOD BANKFinal ResultPerforming OrganizationAddressCity/State/ZIP CodePhone Number [facility] PATHOLOGY LABORATORY [address] [place] [phone] * (ABNORMAL) GLUCOSE, FINGERSTICK-IN OFFICE (06/25/2025 9:35 PM EST)Component ValueRef RangeTest MethodAnalysis TimePerformed AtPathologist Signature Glucose, WVX690(H)74 - 109 mg/dL06/25/2025 9:42 PM ESTNURSING GLUCOSE PROGRAM Specimen (Source)Anatomical Location / LateralityCollection Method / Volume Collection TimeReceived TimeBloodBLOOD SPECIMEN / Sswkccn4206/25/2025 9:35 PM EST06/25/2025 9:42 PM EST Narrative Authorizing ProviderResult TypeResult StatusTo Be AssignedEC BACK OFFICE LABS Final ResultPerforming OrganizationAddressty/State/ZIP CodePhone Number NURSING GLUCOSE PROGRAM [address] [place] [address] * (ABNORMAL) GLUCOSE, FINGERSTICK-IN OFFICE (06/25/2025 5:41 PM EST)Component ValueRef RangeTest MethodAnalysis TimePerformed AtPathologist Signature Glucose, WNE755(H)74 - 109 mg/dL06/25/2025 5:48 PM ESTNURSING GLUCOSE PROGRAM Specimen (Source)Anatomical Location / LateralityCollection Method / Volume Collection TimeReceived TimeBloodBLOOD SPECIMEN / Qijlxhb1706/25/2025 5:41 PM EST06/25/2025 5:48 PM EST Narrative Authorizing ProviderResult TypeResult StatusTo Be AssignedEC BACK OFFICE LABS Final ResultPerforming OrganizationAddressCity/State/ZIP CodePhone Number NURSING GLUCOSE PROGRAM [address] [place] [address] * XR CHEST AP OR PA 1 [...] DIAGNOSIS: Pacemaker lead placement assessment ORDERING PROVIDER: Rainbow [facility] [employer] NOTE: COMPARISON: None FINDINGS: Position [...] clinically. MACRO: None Authorizing ProviderResult TypeResult StatusDelight [facility]ST[facility]- RAY 2Final Result * (ABNORMAL) GLUCOSE, FINGERSTICK-IN OFFICE (06/25/2025 12:06 PM EST)Component ValueRef RangeTest MethodAnalysis TimePerformed AtPathologist Signature Glucose, EGM509(H)74 - 109 mg/dL06/25/2025 12:13 PM ESTNURSING GLUCOSE PROGRAM Specimen (Source)Anatomical Location / LateralityCollection Method / Volume Collection TimeReceived TimeBloodBLOOD SPECIMEN / Utiuqtz6606/25/2025 12:06 PM EST06/25/2025 12:13 PM EST Narrative Authorizing ProviderResult TypeResult StatusTo Be AssignedEC BACK OFFICE LABS Final ResultPerforming OrganizationAddressty/State/ZIP CodePhone Number NURSING GLUCOSE PROGRAM [address] [place] [phone] * (ABNORMAL) GLUCOSE, FINGERSTICK-IN OFFICE (06/25/2025 7:46 AM EST)Component ValueRef RangeTest MethodAnalysis TimePerformed AtPathologist Signature Glucose, MOG510(H)74 - 109 mg/dL06/25/2025 7:56 AM ESTNURSING GLUCOSE PROGRAM Specimen (Source)Anatomical Location / LateralityCollection Method / Volume Collection TimeReceived TimeBloodBLOOD SPECIMEN / Cbgktzu7506/25/2025 7:46 AM EST06/25/2025 7:56 AM EST Narrative Authorizing ProviderResult TypeResult StatusTo Be AssignedEC BACK OFFICE LABS Final ResultPerforming OrganizationAddressCity/State/ZIP CodePhone Number NURSING GLUCOSE PROGRAM [address] [place] [phone] * (ABNORMAL) GLUCOSE, FINGERSTICK-IN OFFICE (06/24/2025 9:32 PM EST)Component ValueRef RangeTest MethodAnalysis TimePerformed AtPathologist Signature Glucose, NDC619(H)74 - 109 mg/dL06/24/2025 9:38 PM ESTNURSING GLUCOSE PROGRAM Specimen (Source)Anatomical Location / LateralityCollection Method / Volume Collection TimeReceived TimeBloodBLOOD SPECIMEN / Wtyskmv9706/24/2025 9:32 PM EST06/24/2025 9:38 PM EST Narrative Authorizing ProviderResult TypeResult StatusGhassacayla ESPARZA BACK OFFICE LABSFinal ResultPerforming OrganizationAddressCity/State/ZIP CodePhone Number NURSING GLUCOSE PROGRAM [address] [place] [address] * (ABNORMAL) CBC WITH DIFFERENTIAL (06/24/2025 8:52 PM EST)ComponentValueRef RangeTest MethodAnalysis TimePerformed AtPathologist SignatureWBC9.84.5 - 11.5 K/uL06/24/2025 9:18 PM [facility] PATHOLOGY LABORATORYRBC4.00(L)4.50 - 5.90 M/uL 06/24/2025 9:18 PM [facility] PATHOLOGY YLRHBKDNBRVejcdwjspq14.4(L)13.9 - 16.3 g/dL06/24/2025 9:18 PM [facility] PATHOLOGY TEAKDBDNIQBwcxwqozeh46.0(L)41.0 - 53.0 %06/24/2025 9:18 PM [facility] PATHOLOGY EWHEBVKFOYBAU0767 - 100 fL06/24/2025 9:18 PM [facility] PATHOLOGY MYSIIVMMVKQVF11.026.0 - 34.0 pg06/24/2025 9:18 PM EST S PATHOLOGY AUBJUWOKVWGINJ40.532.0 - 35.9 g/dL06/24/2025 9:18 PM [facility] PATHOLOGY DKPKUFFMIMLewalbki342(H)150 - 400 K/uL06/24/2025 9:18 PM [facility] PATHOLOGY LABORATORYRDW-CV15.9(H)11.5 - 14.5 %06/24/2025 9:18 PM [facility] PATHOLOGY QRHMLEKOFQCZX22.47.5 - 11.2 fL06/24/2025 9:18 PM [facility] PATHOLOGY YUBDFAYJWCHjctvbilpye86.0(H)31.0 - 76.0 %06/24/2025 9:18 PM [facility] PATHOLOGY LABORATORYNeutrophil #7.831.50 - 8.00 K/uL06/24/2025 9:18 PM [facility] PATHOLOGY PEMGKOBDWCCxiwywplwxz99.1(L)24.0 - 44.0 %06/24/2025 9:18 PM [facility] PATHOLOGY LABORATORYLymphocytes #0.99(L)1.00 - 4.80 K/uL06/24/2025 9:18 PM [facility] PATHOLOGY LABORATORYMonocytes7.22.0 - 11.0 %06/24/2025 9:18 PM [facility] PATHOLOGY LABORATORYMonocyte #0.700.20 - 1.00 K/uL06/24/2025 9:18 PM [facility] PATHOLOGY LABORATORYEosinophil1.40.1 - 4.0 %06/24/2025 9:18 PM [facility] PATHOLOGY LABORATORYEosinophil #0.130.00 - 0.70 K/uL06/24/2025 9:18 PM [facility] PATHOLOGY LABORATORYBasophils1.4<=1.9 %06/24/2025 9:18 PM [facility] PATHOLOGY LABORATORYBasophil #0.140.00 - 0.20 K/uL06/24/2025 9:18 PM [facility] PATHOLOGY LABORATORYSpecimen (Source)Anatomical Location / LateralityCollection Method / VolumeCollection TimeReceived TimeBloodBLOOD SPECIMEN / UnknownVenipuncture / Pfcvvcb7706/24/2025 8:52 PM EST06/24/2025 9:11 PM EST Narrative Authorizing ProviderResult TypeResult StatusGhdonnie ESPARZA LAB ORDER ONLY Final ResultPerforming OrganizationAddressCity/State/ZIP CodePhone Number [facility] PATHOLOGY LABORATORY [address] [place] [address] * TYPE AND SCREEN (06/24/2025 8:52 PM EST)ComponentValueRef RangeTest Method Analysis TimePerformed AtPathologist SignatureABO Rh TypeA Scrlvqqo89/14/2025 9:52 PM [facility] PATHOLOGY LABORATORYAb Screen KwloiaCwegqluc20/14/2025 9:52 PM [facility] PATHOLOGY LABORATORYSpecimen Expiration [id number]/14/2025 9:52 PM [facility] PATHOLOGY LABORATORYABO Rh/Blanca/TXRX HistoryNo Previous Results 06/24/2025 9:52 PM [facility] PATHOLOGY LABORATORYSpecimen (Source)Anatomical Location / LateralityCollection Method / VolumeCollection TimeReceived Time BloodBLOOD SPECIMEN / UnknownVenipuncture / Vbbamdi3806/24/2025 8:52 PM EST 06/24/2025 9:10 PM EST Narrative Authorizing ProviderResult TypeResult StatusSudarshan ESPARZA BLOOD BANKFinal ResultPerforming OrganizationAddressCity/State/ZIP CodePhone Number [facility] PATHOLOGY LABORATORY [address] [place] [phone] * BLOOD CULTURE (06/24/2025 8:52 PM EST)ComponentValueRef RangeTest Method Analysis TimePerformed AtPathologist SignatureBlood CultureNo Ctqjlj8706/29/2025 10:01 PM [facility] PATHOLOGY LABORATORYSpecimen (Source)Anatomical Location / LateralityCollection Method / VolumeCollection TimeReceived TimeBlood PERIPHERAL BLOOD SPECIMEN / UnknownVenipuncture / Cljjjqy5706/24/2025 8:52 PM EST06/24/2025 9:01 PM EST Narrative [facility] PATHOLOG[facility] LABORATORY - 06/29/2025 10:01 PM EST The results may be compromised due to inadequate volume of fluid received. A negative result does not rule out an infectious process. Authorizing ProviderResult TypeResult StatusSudarshan ESPARZA MICROBIOLOGY Final ResultPerforming OrganizationAddressty/State/ZIP CodePhone Number [facility] PATHOLOGY LABORATORY [address] [place] [phone] * (ABNORMAL) BLOOD CULTURE (06/24/2025 8:52 PM EST)ComponentValueRef RangeTest MethodAnalysis TimePerformed AtPathologist SignatureBlood CulturePositive Culture Report(A)06/30/2025 2:33 PM [facility] PATHOLOGY LABORATORYBlood Culture Anaerobic bottle yields Staphylococcus aureus DORON 06/30/2025 2:33 PM [facility] PATHOLOGY LABORATORYComment:Identification by nucleic acid based testingGram StainAnaerobic bottle yields Gram Positive Cocci In Ukuceomc04/20/2025 2:33 PM [facility] PATHOLOGY LABORATORYSpecimen (Source) Anatomical Location [...] ESPARZA MICROBIOLOGY Final ResultPerforming OrganizationAddressCity/State/ZIP CodePhone Number [facility] PATHOLOG[facility] LABORATORY [address] [place] [address] * (ABNORMAL) BASIC METABOLIC PANEL (06/24/2025 8:52 PM EST)ComponentValueRef RangeTest MethodAnalysis TimePerformed AtPathologist WihaxtustFhmnzrs078(H)74 - 109 mg/dL06/24/2025 9:40 PM [facility] PATHOLOGY QIQTTELYJFYfpseu735(L)136 - 145 mmol/L108/25/2024 9:40 PM [facility] PATHOLOGY LABORATORYPotassium4.83.5 - 5.0 mmol/L108/25/2024 9:40 PM [facility] PATHOLOGY LABORATORYCarbon Fcacvku2953 - 31 mmol/L108/25/2024 9:40 PM [facility] PATHOLOGY EZLBFGGGUTHzenxuly49128 - 107 mmol/L 06/24/2025 9:40 PM [facility] PATHOLOGY LABORATORYBlood Urea Mgnbtrvc254 - 25 mg/dL06/24/2025 9:40 PM [facility] PATHOLOGY LABORATORYCreatinine1.150.70 - 1.30 mg/dL06/24/2025 9:40 PM [facility] PATHOLOGY LABORATORYCalcium8.0(L)8.6 - 10.3 mg/dL06/24/2025 9:40 PM [facility] LABORATORYAnion Dam9556 - 20 06/24/2025 9:40 PM [facility] LABORATORYEstimated GFR (CKD-EPI)61>=60 mL/min/1.61sbg3508/25/2024 9:40 PM [facility] PATH[facility] LABORATORYComment: 2020 CKD EPI [...] Med 1 Vol. 385 Issue 19 Pages 5529-8220 Specimen (Source)Anatomical Location / LateralityCollection Method / Volume Collection TimeReceived TimeBloodBLOOD SPECIMEN / UnknownVenipuncture / Unknown 06/24/2025 8:52 PM EST06/24/2025 9:11 PM EST Narrative Authorizing ProviderResult TypeResult StatusGhdonnie Lovett MD98 GENERAL LAB Final ResultPerforming OrganizationAddressCity/State/ZIP CodePhone Number [facility] [address] [place] [phone] documented in this encounter Visit Diagnoses Diagnosis MSSA bacteremia- Primary MSSA bacteremia Acute midline low back pain without sciatica [M54.50] Coronary artery disease involving [place] coronary artery of [place] heart without angina pectoris [I25.10] Essential hypertension [...] compression fracture of T10 vertebra, initial encounter ([facility]) CAD (coronary artery disease) Coronary atherosclerosis of unspecified type of vessel, [place] or graft HFrEF (heart failure with reduced [...] retention Anemia Anemia, unspecified Left arm swelling Anemia due to other cause, not classified documented in this encounter Administered Medications Medication OrderMAR ActionAction DateDoseRateSite acetaminophen (TYLENOL) tablet 1,000 mg, Oral, THREE TIMES DAILY 0900, 1300, 1700, First dose on Wed06/24/25 at 1930, Until Discontinued Given07/03/2025 12:56 PM EST1,000 zbPpmtb0207/03/2025 8:43 AM EST1,000 mgGiven 07/02/2025 5:03 PM EST1,000 mg chgwwek-emuuzk-mwmdgipe (CREON) 84737 units capsule 24,000 Units, Oral, 3 TIMES DAILY WITH MEALS, First dose (after last modification) on Wed06/26/25 at 0800, Until Discontinued Given07/03/2025 12:56 PM EST24,000 WwvheSacci97/23/2025 8:43 AM EST24,000 Units Given07/02/2025 6:44 PM EST24,000 Units atorvastatin (LIPITOR) tablet 40 mg, Oral, AT BEDTIME, First dose on Wed06/24/25 at 2200, Until Discontinued Given07/02/2025 9:44 PM EST40 usBqnvl1707/01/2025 10:20 PM EST40 rdNcsge0806/30/2025 9:10 PM EST40 mg ceFAZolin Sodium (ANCEF) 2,000 mg in sodium chloride 0.9 % 100 mL (V2B) 2,000 mg, Intravenous, EVERY 8 HOURS ANTIBIOTIC, First dose on Wed06/25/25 at 0600, Until Discontinued, at 200 mL/hr, Administer over 30 Minutes IV New Bag07/03/2025 12:56 PM EST2,000 mg200 mL/hrIV 07/03/2025 6:27 [...] swallow or NPO IV 06/29/2025 11:28 AM WTA399 mL999 mL/hrIV 06/29/2025 5:23 AM EST 125 mL999 mL/hr docusate sodium (COLACE) capsule 100 mg, Oral, [...] mL/hr, Administer over 30 Minutes IV 07/03/2025 8:49 AM EST1,000 mg200 mL/hrIV 07/02/2025 12:09 PM EST1,000 mg200 mL/hrIV New Bag07/01/2025 9:41 AM EST1,000 mg200 mL/hr ferrous sulfate 325 mg (65 mg elemental) tablet 325 mg, Oral, 2 TIMES DAILY BEFORE MEALS, First dose on Wed06/25/25 at 0800, Until Discontinued Given07/03/2025 8:43 AM DJQ636 agEkxwn8307/02/2025 5:03 PM HXG399 mgGiven 07/02/2025 12:11 PM AIW912 mg glucagon (GLUCAGEN) 1 MG injection 1 mg, Subcutaneous, PRN, Starting on Wed06/24/25 at 1859, Until Wed07/03/25 at 1821, For blood glucose less than 70 mg/dL and with no IV access with loss of consciousness or alert and unable to swallow. Indications:Hypoglycemia insulin glargine (LANTUS) 100 UNIT/ML injection 15 Units, Subcutaneous, AT BEDTIME, First dose (after last modification) on Wed07/02/25 at 2200, Until Discontinued Given07/02/2025 10:38 PM EST15 UnitsAbdominal Tissue insulin lispro (HumaLOG) 100 UNIT/ML injection 1-6 Units, Subcutaneous, 3 TIMES DAILY BEFORE MEALS, First dose on Wed06/25/25 at 0800, Until Discontinued Given07/02/2025 5:02 PM EST4 UnitsAbdominal TnsdcfVglkx56/22/2025 12:28 PM EST2 UnitsAbdominal MygktiRhiey32/21/2025 5:47 PM EST4 UnitsAbdominal Tissue insulin lispro (HumaLOG) 100 UNIT/ML injection 5 Units, Subcutaneous, 3 TIMES DAILY BEFORE MEALS, First dose (after last modification) on Wed07/02/25 at 1700, Until Discontinued Given07/03/2025 12:55 PM EST5 UnitsRight HaeOdeci90/23/2025 8:43 AM EST5 Units Right WrvRtvqf10/22/2025 5:02 PM EST5 UnitsAbdominal Tissue lidocaine (LIDODERM) 4 % patch 1 Patch, Transdermal, EVERY 24 HOURS, First dose on Wed06/24/25 at 2030, Until Discontinued Patch Cmcpzoj7807/02/2025 9:42 PM EST1 PatchBackPatch Vmjtrrq7706/30/2025 9:10 PM EST1 PatchPatch Mbwcekz4006/29/2025 9:23 PM EST1 Patch losartan (COZAAR) tablet 25 mg, Oral, DAILY, First dose on Wed06/25/25 at 0900, Until Discontinued Given07/03/2025 10:06 AM EST25 dsZdait7607/02/2025 12:11 PM EST25 mgGiven 07/01/2025 9:28 AM EST25 mg melatonin tablet 3 mg, Oral, AT BEDTIME PRN, Starting on Wed06/24/25 at 1830, Until Wed07/03/25 at 1821, Sleep Given07/02/2025 9:44 PM EST3 qlJkjha6906/29/2025 9:24 PM EST3 lzLgfbm3706/28/2025 9:44 PM EST3 mg metoprolol (TOPROL-XL) 24 hour tablet 12.5 mg, Oral, AT BEDTIME, First dose on Wed06/24/25 at 2200, Until Discontinued Given07/02/2025 9:43 PM EST12.5 juWodnz6907/01/2025 10:20 PM EST12.5 mgGiven 06/30/2025 9:10 PM EST12.5 mg ondansetron (ZOFRAN) 4 MG/2ML injection 4 mg, Intravenous, EVERY 8 HOURS PRN, Starting on Wed06/24/25 at 1830, Until Wed07/03/25 at 1821,Nausea, Vomiting oxyCODONE immediate release tablet 5 mg, Oral, EVERY 6 HOURS PRN, Starting on Wed06/26/25 at 1018, Until Wed07/03/25 at 1821, Moderate Pain (pain score 4,5,6) Given07/01/2025 5:27 AM EST5 qmNeqtg7006/27/2025 3:26 PM EST5 tjIocuu9206/26/2025 9:53 PM EST5 mg oxyCODONE immediate release tablet 7.5 mg, Oral, EVERY 4 HOURS PRN, Starting on Wed06/27/25 at 1002, Until Wed07/03/25 at 182, Severe Pain (pain score 7,8,9,10) Given07/03/2025 10:37 AM EST7.5 xjZukbn5107/03/2025 6:28 AM EST7.5 mgGiven 07/01/2025 11:38 PM EST7.5 mg PARoxetine (PAXIL) tablet 40 mg, Oral, DAILY, First dose on Wed06/25/25 at 0900, Until Discontinued Given07/03/2025 10:06 AM EST40 wzMjysb8907/02/2025 12:11 PM EST40 mgGiven 07/01/2025 9:28 AM EST40 mg polyethylene glycol (MIRALAX) 17 g packet 17 g, Oral, DAILY, First dose on Wed06/25/25 at 1530, Until Discontinued Given07/02/2025 12:11 PM EST17 tVspms8806/26/2025 9:20 AM EST17 uKahqz4506/25/2025 2:49 PM EST17 g senna (SENOKOT) tablet 8.6 mg, Oral, 2 times daily, First dose on Wed06/26/25 at 1100, Until Discontinued Given07/03/2025 8:43 AM EST8.6 zqOrpdv4307/02/2025 9:44 PM EST8.6 mgGiven 07/02/2025 12:27 PM EST8.6 mg spironolactone (ALDACTONE) tablet 25 mg, Oral, DAILY, First dose on Wed06/25/25 at 0900, Until Discontinued Given07/03/2025 10:06 AM EST25 xsMbytl4107/02/2025 12:11 PM EST25 mgGiven 07/01/2025 9:28 AM EST25 mg tamsulosin (FLOMAX) capsule 0.4 mg, Oral, DAILY, First dose on Wed06/25/25 at 0900, Until Discontinued Given07/03/2025 8:43 AM EST0.4 siSdztv2607/02/2025 12:11 PM EST0.4 mgGiven 07/01/2025 9:28 AM EST0.4 mgdocumented in this encounter Active and Recently Administered Medications Times are shown in EST.Medication Order/ acetaminophen (TYLENOL) tablet 1,000 mg, Oral, THREE TIMES DAILY 0900, 1300, 1700, First dose on Wed06/24/25 at 1930, Until Discontinued * 5177 (Given - Provider: Shirley Barton RN) * 130 (Given - Provider: Shirley Barton RN) * 1746 (Given - Provider: Shirley Barton, RN) * 0900 (Hold/Not Given - Provider: Lena Bello - Reason: Off of unit (test/procedure/OR)) * 1211 (Given - Provider: Lena Bello) * 1703 (Given - Provider: Lena Bello) * 0843 (Given - Provider: Ana Martell, KARIN) * 1256 (Given - Provider: Ana Martell, KARIN) gwsarql-llgmrj-aapltqtq (CREON) 24522 units capsule 24,000 Units, Oral, 3 TIMES [...] Bello) * 1844 (Given - Provider: Lena Bello) * 0843 (Given - Provider: Ana Martell, KARIN) * 1256 (Given - Provider: Ana Martell, KARIN) atorvastatin (LIPITOR) tablet 40 mg, Oral, AT BEDTIME, First dose on Wed06/24/25 at 2200, Until Discontinued * 2220 (Given - Provider: Paige Curry, KARIN) * 2144 (Given - Provider: Shannen Rich RN) ceFAZolin Sodium (ANCEF) 2,000 mg in sodium chloride 0.9 % 100 mL (V2B) 2,000 mg, Intravenous, EVERY 8 HOURS ANTIBIOTIC, First dose on Wed06/25/25 at 0600, Until Discontinued, at 200 mL/hr, Administer over 30 Minutes * 0527 (IV New Bag - Provider: Hemalatha Louis RN) * 1305 (IV New Bag - Provider: Shirley Barton RN) * 2220 (IV New Bag - Provider: Paige Curry, KARIN) * 0612 (IV New Bag - Provider: Cookie Boyd) * 1505 (IV New Bag - Provider: Lena Bello) * 2244 (IV New Bag - Provider: Shannen Rich, KARIN) * 0627 (IV New Bag - Provider: Shannen Rich, KARIN) * 1256 (IV New Bag - Provider: Ana Martell, RN) enoxaparin (LOVENOX) 40 MG/0.4ML injection 40 mg (CANCELED) 40 mg, Subcutaneous, DAILY, First dose on Wed06/24/25 at 1930, Until Discontinued * 0929 (Given - Provider: Shirley Barton, KARIN) enoxaparin (LOVENOX) 40 MG/0.4ML injection 40 mg [...] New Bag - Provider: Ana Martell, RN) ferrous sulfate 325 mg (65 mg elemental) [...] 0843 (Given - Provider: Ana Martell, RN) insulin glargine (LANTUS) 100 UNIT/ML injection (CANCELED) 8 Units, Subcutaneous, AT BEDTIME, First dose (after last modification) on 07/01/25 at 2200, Until Discontinued * 2221 (Given [...] 7 Units, Subcutaneous, ONCE, 1 dose, On 07/01/25 at 2300 * 2223 (Given - Provider: [...] RN) * 1255 (Given - Provider: Ana Martell RN) lidocaine (LIDODERM) 4 % patch 1 Patch, Transdermal, EVERY 24 HOURS, First dose on Wed06/24/25 at 2030, Until Discontinued * 0929 (Patch Removal - Provider: Shirley Barton RN) * 222 (Hold/Not Given - Provider: Paige Curry RN - Reason: Patient refused) * 214 (Patch Applied - Provider: Shannen Rich, KARIN) * 0853 (Patch Removal - Provider: Ana [...] (Given - Provider: Paige Curry, KARIN) * 2143 (Given - Provider: Shannen Rich, KARIN) PARoxetine [...] (Given - Provider: Ana Martell, KARIN) Medication Order dextrose (GLUTOSE) 40 % oral gel(Linked Group [...] at 1830, Until Wed07/03/25 at 1821, Constipation fentaNYL (SUBLIMAZE) 100 MCG/2ML injection (COMPLETED) Intravenous, ONCE PRN, Starting on Wed07/02/25 at 0931, Until Wed07/02/25 at 0931 * 0931 (Given - Provider: Davi Clark RN) glucagon [...] Sleep * 2144 (Given - Provider: Shannen Rich RN) midazolam (VERSED) 2 MG/2ML injection (COMPLETED) Intravenous, [...] RN) * 0628 (Given - Provider: Shannen Rich RN) * 1037 (Given - Provider: Ana Martell [...] Wed06/24/25 at 1859, Until Wed07/03/25 at 1820, For blood glucose less than 70 mg/dL and with no IV access with loss of consciousness or alert and unable to swallow. Or dextrose (GLUTOSE) 40 % oral gelJump to med 15 g of glucose, Buccal, PRN, Starting on Wed06/24/25 at 1859, Until Wed07/03/25 at 1820, blood glucose between 50 - 69 mg/dL, [...]
--- OUTSIDE RECORDS SUMMARY | 2025-06-29 16:45 | XMS_ITS | Encounter Summary ---
Author Organization [facility] Address [address] [place], [place] [address] Care Team Providers Care Staff Radiographer Name Role Phone Unavailable Primary Care Provider Unavailabl e Reason for Visit * Auth/Cert (Routine)SpecialtyDiagnoses / ProceduresReferred By ContactReferred To ContactCase Management Diagnoses DENISHA, UTI, BACK PAIN, ANEMIA Procedures N/A [facility] [address] [place] [phone] Phone: tel: [facility] [address] [place] [phone] Phone: tel: Referral IDStatusReasonStart DateExpiration DateVisits RequestedVisits [id number] Encounter Details DateTypeDepartmentCare Team (Latest Contact Info)Fsvbnwbfypr21/19/2025 4:45 PM ESTAnesthesia Event [facility] [address] [place], [place] [id number] Gray Waters MD [address] [place], [place] [id number] Anesthesia Record Procedure NameResponsible AnesthesiologistAnesthesia Start TimeAnesthesia Stop TimeESOPHAGOGASTRODUODENOSCOPYGray Waters MD06/29/25 75197308/30/24 1720 DlxuMvqkNfvlnFwtoojb38/19/[id number] Equip Tnlik0498Ec Start Kgph8255Gr Qrfrj3761Xwcbvlmjiert VerifyThe anesthesia team has reviewed the patient's vital signs immediately prior to induction. Deanna Miller, JAM7330Ui Xnylhcfnn9662 Anesthesia Mvybiil2354Zapzfvezy Vbrcl8249Drtrgvqxe Vql9137sj stop hbel1736BMWV HandoffI completed my SBAR handoff to the receiving nurse in the receiving unit. 1720AN Stop* NameTotalLidocaine (Cardiac) 20 mg/mL IV60 mgPropofol Bolus 10mg/mL 20 mgPropofol 10??mg/mL85.68 mgEtomidate 2??mg/mL8 mgGlycopyrrolate 0.2??mg/mL 0.2 mgNaCl 0.9%200 mL * Agents Name eN2O O2 Flow Rate (l/min) * Blood No blood administrations on file. TypeDetailsPlacementRemovalIndwelling Urinary Hyxkfjju77/14/25; 180; Present on Arrival to Hospital; 07/02/25; 54221508/25/24 1807 by Lizzy Rogers RN 07/02/25 1520 by Lena Bello RPeripheral IV Line06/24/25; 1807; 20 gauge; Anterior, Right; Forearm; 07/03/25; [id number]/25/24 1807 by Lizzy Rogers RN07/03/25 1418 by Latoya Mccauley RNAirway Laugagf03/19/25; 1646; Non- Rebreather; 06/29/25; [id number] 1646 by Deanna Miller CAA06/29/25 1710 by Deanna Miller CAAdocumented in this encounter Social History Tobacco UseTypesPacks/DayYears UsedDateSmoking Tobacco: [facility] UtilitiesAnswerDate RecordedIn the past 12 months has the QA on Request, [employer], oil, or water [employer] threatened to shut off services in your [...] RecordedIn the past 12 months has the QA on Request, gas, oil, or water [employer] threatened to shut off services in your home?No06/24/2025Sex and Gender InformationValueDate RecordedSex Assigned at BirthNot on fileLegal RiwCnrg18/22/2023 9:47 AM ESTGender IdentityNot on file Sexual OrientationNot on filedocumented as of this encounter Mental Status * AgentsQuestionAnswerEntry DateAuthorO2 Flow Rate (l/min) 5:14 PM ESTTDeanna stoddard CAA documented in this encounter OR Notes * Anesthesia Postprocedure Evaluation - Gray Waters MD - 06/29/2025 5:26 PM EST Anesthesia Postoperative Assessment: Vital Signs (most recent): BP 96/65 Pulse 71 Temp 36.8 ??C (98.3 ??F) (Temporal) Resp 16 Ht 5' 10 (1.778 m) Wt 135 lb (61.2 kg) SpO2 96% BMI 19.37 kg/m?? Anesthesia Post Evaluation Level of consciousness: awake Post-procedure exam normal. Body temperature, hydration status, PONV and pain evaluated and addressed. Pain management: adequate Hydration status: normal PONV:No nausea/vomiting reported Cardiopulmonary status stable Respiratory status: acceptable Cardiovascular status: acceptable ANESTHESIA NOTABLE EVENTS: No notable events documented. Gray Waters MD * Anesthesia Preprocedure Evaluation - Gray Waters MD - 06/29/2025 3:38 PM EST ASA: 4 No history of anesthetic complications NPO status: Greater than 8 hours Past Medical History and Review of Systems Pulmonary - negative ROS Dental ROS (+) teeth problems Endo (+) diabetes mellitus Neuro/Psych - negative ROS Cardiovascular (+) hypertension, CAD, CHF, pacemaker, Surgical risk: intermediate; Cardiac condition: stable No previous ECG available GI/Hepatic/Renal (+) renal disease CRI Heme/Other (+) anemia, anticoagulation therapy Physical Exam Airway Mallampati: II TM distance: Adequate Micrognathia: Not present Jaw opening: Adequate Neck flexion: Adequate Dental PE (+) chipped teeth Pulmonary - pulmonary exam normal Comment: Chest clear to auscultation bilaterally Cardiovascular - cardiovascular exam normal Comment: RRR with S1S2; no murmurs, gallops, or rubs Neuro - neurological exam normal Comment: Awake, alert, oriented, No motor deficits and sensation grossly intact Plan Anesthesia plan: MAC; (NC) Anesthesia risks / alternatives discussed pre-op Questions answered / anesthesia plan accepted Attestation: Anesthesia options were discussed with the patient and/or legal healthcare sales representative. The risks, benefitsand alternatives were reviewed. Questions regarding anesthesia were answered. Patient and/or legal healthcare sales representative knows such anesthetics and procedures may be performed by Resident physicians, Certified Anesthesiologist Assistants, or Certified Nurse Anesthetists under the supervision of a physician. The patient /or the patient???s legal healthcare sales representative agree with the plan for anesthesia. Comment: Pt agrees to suspend his DNR status during the perioperative period. PATFORM This is 89 year old male presents for EGD. 89 y/o M with PMH of HFrEF [...] osteomyelitis, discitis, and ICD-associated infection. Transferred to [facility] for advanced imaging and definitive source evaluation. [...] goal 1.5 - LINDA tentatively planned for Wednesday Medical History[1] Surgical History[2] Social History[3] Medications Ordered Prior to Encounter[4] Not on File Gray Waters MD [1] No past medical history on file. [2] No past surgical history on file. [3] Social History Socioeconomic History ??? Marital status: Unknown Social Drivers of Health Food Insecurity: Unknown (06/24/2025) Hunger Vital Sign ??? Worried About Running Out of Food in the Last Year: Never true Transportation Needs: Unknown (06/24/2025) PRAPARE - Transportation ??? Lack of Transportation (Medical): No Intimate Partner Violence: Unknown (06/24/2025) Humiliation, Afraid, Rape, and Kick questionnaire ??? Emotionally Abused: No [4] No current facility-administered medications on file prior to encounter. No current outpatient medications on file prior to encounter. documented in this encounter Miscellaneous Notes * Anesthesia Transfer Of Care - Deanna Miller CAA - 06/29/2025 5:20 PM EST Images from the original note were not included. Patient taken to Phase II. Patient was awake, comfortable, and stable on arrival. Anesthesia Transfer of Care Note Past Medical History: Medical History[1] Sleep Apnea/Positive STOP-BANG: No Problem List: Problem List[2] Past Surgical History: Surgical History[3] Allergies: Patient has no allergy information on record. Basic Operating Room Facts: Surgeon(s): Florentino Lindsey MD Anesthesiologist: Gray Waters MD CAA: Deanna Miller CAA Anesthesia Staff: Delon Cordoba ESOPHAGOGASTRODUODENOSCOPY Intraoperative Events: No acute event ASA: 4 EBL: 0 mL Urine Not documented Lactated Ringers and NaCl 0.9%: Fluid Totals (Filter: LR and NaCl 0.9% Medications Shown) Medication Calculated Total NaCl 0.9% 200 mL / 1 bag Cell Saver: Not documented Blood Volume Values: Blood Products None MTP Blood: MTP PRBC: Not documented MTP FFP: Not documented MTP PLT: Not documented MTP Cryo: Not documented MTP Whole Blood: Not documented Current Vasoactive Medications: {Vasoactive Medications: None Lines, Drains, Airways Peripheral IV Access: 06/24/25 1807 20 gauge Anterior;Right Forearm (Active) Site Assessment WNL;Dressing intact 06/29/25 1649 Infusion Status Port #1 Infusing;Patent 06/29/25 164 Airway Insertion Details * No LDAs found * All non-working IVs have been removed: N/A Laboratory Data: CBC (last 3 years, up to 8 [...] eGFR 83 94 77 80 76 61 Basic Metabolic Panel 06/29/2025 06/29/2025 06/28/2025 06/27/2025 11:46 AM 4:34 AM 1:35 AM 5:43 AM Na 137 141 133 134 K 4.4 3.1 4.6 4.2 Cl 104 116 103 103 CO2 25 21 24 22 Gap 12 7 11 13 Glu 78 41 409 280 BUN 16 14 21 22 Cr 0.88 0.58 0.95 0.92 Ca 8.6 6.0 8.0 8.1 PO4 -- 2.4 -- -- INR (no units) Date Value 06/29/2025 2.65 (H) 06/29/2025 2.71 (H) No result for BNP LFT's (last 3 years, up to 8 values) 06/29/2025 4:34 AM T Prot 4.4 Albumin 2.2 D Bili 0.05 T Bili 0.2 Alk Phos 85 ALT <3 AST 13 Arterial Blood Gases None Hand off Completed: Yes 1. The patient was identified. 2. Pertinent medical history was relayed. 3. A brief discussion was had about any pertinent surgical/ procedural issues. 4. Intraoperative/ anesthetic management issue and concerns were discussed. 5. Plans for the early post-operative period relayed. 6. An opportunity for questions and acknowledgment of understanding of the report was received. SHRUTHI Tyson [1] No past medical history on file. 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 documented in this encounter Plan of Treatment DateTypeDepartmentCare Team (Latest Contact Info)Tytonozpapm97/21/2026 11:00 AM ESTOffice Visit [facility] [address] [phone] Jacqueline Baptiste MD [address] [phone] documented as of this encounter Visit Diagnoses Not on filedocumented in this encounter Administered Medications Medication OrderMAR ActionAction DateDoseRateSite etomidate (AMIDATE) 2 MG/ML injection Intravenous, PRN, Starting on Wed06/29/25 at 1652, Until Wed06/29/25 at 1720, Intra-op Given06/29/2025 4:52 PM EST8 mg glycopyrrolate (ROBINUL) 0.2 MG/ML injection Intravenous, PRN, Starting on Wed06/29/25 at 1652, Until Wed06/29/25 at 1720, Intra-op Given06/29/2025 4:52 PM EST0.2 mg Lidocaine (Cardiac) PF (XYLOCAINE) 100 MG/5ML injection Intravenous, PRN, Starting on Wed06/29/25 at 1652, Until Wed06/29/25 at 1720, Intra-op Given06/29/2025 4:52 PM EST60 mg propofol (DIPRIVAN) 10 mg/mL iv bolus from infusion bottle IV Bolus, PRN, Starting on Wed06/29/25 at 1652, Until Wed06/29/25 at 1720, Intra-op Given06/29/2025 4:52 PM EST20 mg propofol (DIPRIVAN) 1000 MG/100ML infusion Intravenous, PRN CONTINUOUS, Starting on Wed06/29/25 at 1652, Until Wed06/29/25 at 1720 IV New Bag06/29/2025 4:52 PM QBV969 mcg/kg/min36.72 mL/hr sodium chloride 0.9 % iv infusion Intravenous, PRN CONTINUOUS, Starting on Wed06/29/25 at 1645, Until Wed06/29/25 at 1720 IV New Bag06/29/2025 4:45 PM ESTdocumented in this encounter
--- OUTSIDE RECORDS SUMMARY | 2025-07-10 12:44 | XMS_ITS | Encounter Summary ---
Author Organization [facility] Address [address] [place] [address] [address] [phone] Care Team Providers Care Isolation Washer Name Role Phone Unavailable Primary Care Provider Unavailabl e Reason for Visit * ReasonOnset DateCommentsProv to follow for home care with IV07/03/2025 Encounter Details DateTypeDepartmentCare Team (Latest Contact Info)Abghhirhlpx43/23/2025Telephone [facility] [address] [place] [address] Jacqueline Baptiste MD [address] [place] [address] Prov to follow for home care with IV Social History Tobacco UseTypesPacks/DayYears UsedDateSmoking Tobacco: Never AssessedAHC UtilitiesAnswerDate RecordedIn the past 12 months has the electric, gas, oil, or water [employer] threatened to shut off services in your [...] has the electric, gas, oil, or water company threatened to shut off services in your home?No06/24/2025Sex and Gender InformationValueDate RecordedSex Assigned at BirthNot on fileLegal YjlMvho98/22/2023 9:47 AM ESTGender IdentityNot on file Sexual OrientationNot on filedocumented as of this encounter Miscellaneous Notes * Telephone Encounter - Bettie Rangel - 07/03/2025 9:34 AM EST Scott called Prov to follow for home care with IV Call Scott with any quest thank you okay to ivy secure line [phone] documented in this encounter Plan of Treatment DateTypeDepartmentCare Team (Latest Contact Info)Opbfqwwbxon00/21/2026 11:00 AM ESTOffice Visit [facility] [address] [place] [address] Jacqueline Baptiste MD [address] [place] [address] documented as of this encounter Visit Diagnoses Not on filedocumented in this encounter
--- OUTSIDE RECORDS SUMMARY | 2025-07-10 12:44 | XMS_ITS | Encounter Summary ---
Author Organization [facility] Address [address] [facility] Nida carson [place] [phone] Care Team Providers Care Local Driver Name Role Phone Unavailable Primary Care Provider Unavailabl e Reason for Visit * ReasonCommentsTransitional Care ManagementHospital follow-upMedical Record Review Encounter Details DateTypeDepartmentCare Team (Latest Contact Info)Beeqbyjxxgw34/24/2025Patient Outreach [facility] Care Management/Patient Access [address] [facility] [place] [phone] Rajni Gibson RN [address] [place] [address] [place] [address] Transitional Care Management; Hospital follow-up; Medical Record Review Social History Tobacco UseTypesPacks/DayYears UsedDateSmoking Tobacco: Never [facility] UtilitiesAnswerDate RecordedIn the past 12 months has the electric, gas, oil, or water [employer] threatened to shut off services in your [...] RecordedIn the past 12 months has the [employer], gas, oil, or water [employer] threatened to shut off services in your home?No06/24/2025Sex and Gender InformationValueDate RecordedSex Assigned at BirthNot on fileLegal WnbAbwk78/22/2023 9:47 AM ESTGender IdentityNot on file Sexual OrientationNot on filedocumented as of this encounter Progress Notes * Rajni Gibson RN - 07/04/2025 7:52 AM EST Transitional Care Management Contact Operator Supply Coordination [facility] Patient outreach: 1st attempt: 07/04/25, 8:46 AM 2nd attempt: 07/04/25, 1:04 PM 3rd attempt: 07/04/25, 1:09 PM Unableto reach patient Letter sent via Think Realtime Source/s of information: Hospital discharge/CDU summary Chart review Admission date: 06/24/25 Discharge date: 07/03/25 Reason for admission: MSSA bacteremia Patient reports: Unable to review Medication changes: Yes: Unable to review START taking: acetaminophen (TYLENOL) ferrous sulfate lidocaine (LIDODERM) oxyCODONE Pancrelipase (Qmj-Dqws-Xkyh) Medication reconciliation completed: Unable to review Medication-related problems: Unable to review Pharmacy needs: Unable to assess [facility] pharmacy information: Unable to review Appointment/s and procedure/s: Reviewed in MyChart message / letter Future Appointments (next 10) Provider Department Center 08/01/2025 11:00 AM Jacqueline Baptiste MD [facility] Infectious Disease [facility] Treatment plan/s, diagnostic test/s, and referral/s: Reviewed in MyChart message / letter Please follow up with the infectious disease doctor for ongoing management. You will need IV antibiotics for 6 weeks. Please also follow up with the spine surgeons for your back pain. Please follow up with your instructional material director for ongoing diabetes management. Please follows up with your urologist. NEUROSURGERY SERVICE REQUEST Please call the Department of Neurosurgery at to schedule an appointment Last A1C greater than 9%: Yes, Unable to review Lab Results Component Value Date HBA1C 12.8 (H) 04/09/2025 HBA1C 12.0 (A) 10/26/2024 HBA1C 10.1 (A) 07/06/2024 DME ordered: N/A Transportation: Unable to review Coordinate with care team: N/A Community resources identified: Unable to review Referral/s placed: Unable to assess documented in this encounter Plan of Treatment DateTypeDepartmentCare Team (Latest Contact Info)Rutjaasgzis23/21/2026 11:00 AM ESTOffice Visit [facility] Infectious Disease [facility] [address] [place] [address] Jacqueline Baptiste MD [address] [place] [id number] documented as of this encounter Visit Diagnoses Not on filedocumented in this encounter
--- OUTSIDE RECORDS SUMMARY | 2025-07-10 12:46 | XMS_ITS | Encounter Summary ---
Author Organization [facility] Address [address] [place] [address] Care Team Providers Care Hydraulic Rubbish Compactor Mechanic Name Role Phone Unavailable Primary Care Provider Unavailabl e Encounter Details DateTypeDepartmentCare Team (Latest Contact Info)Sxfkbcsdimf45/22/2025Results Only Administration [address] [place] [address] Fritz Vega MD [address] [place] [address] Social History Tobacco UseTypesPacks/DayYears UsedDateSmoking Tobacco: Never AssessedH[facility] UtilitiesAnswerDate RecordedIn the past 12 months has [...] InformationValueDate RecordedSex Assigned at BirthNot on fileLegal NwlJjqg52/22/2023 9:47 AM ESTGender IdentityNot on file Sexual OrientationNot on filedocumented as of this encounter Procedure Notes * Anam Aquino MD - 07/02/2025 9:09 AM ESTAssociated Order(s): ECHOCARDIOGRAM REPORT Transesophageal Echocardiography (LINDA) Study Status:Finalized Demographics Patient name: RANCHO MARADIAGA Gender: Male Height: 70 in. Date of : 1935 Weight: 135 lb. Age: 89 year(s) BMI: 19.4 kg/m^2 BSA: 1.77 m^2 Procedure Staff Indications Endocarditis. Interpreting physician: ANAM AQUINO MD Referring Physician: TYRESE FORD MD Fellow: Jose Núñez Nurse: Davi Clark Procedure Information Proc. sub type: LINDA procedure: CARD TRANSESOPH ECHO W/ANESTH. Accession no: [id number] Study location: Pre-Post Room Procedure date/time: 07/02/2025 9:09 AM Status: Routine Image quality: Fair-Good Procedure Medications Medication Name Administration Route Dosage Dosage Unit Delivery Date and Time Delivered by Viscous lidocaine 4% lidocaine Versed 1 mg Fentanyl 25 mcg Moderate sedation time 17 minutes LINDA Findings Complications: Study complications: none. Procedure Difficulties: Procedural difficulty: none. Is intraoperative linda: No LINDA consent obtained: Yes LINDA performed by: the attending and the fellow Type of anesthesia: Moderate sedation- See EMR for blood pressure monitoring Findings Left ventricle: Left ventricular systolic function is focally abnormal superimposed on global. Focal LV systolic dysfunction consists of akinesia of the entire apex. The left ventricular ejection fraction (LVEF) is 35% +/- 5% by the single plane summation of discs (Pandey's rule) method. Left atrium: The left atrial size is severely increased. Right ventricle: Normal right ventricular size and function. The percent area shortening is 38 (normal >35%, mildly reduced <35 to > 29%, moderately reduced <29 to > 22%, and severely reduced < 22%). Right atrium: The right atrium is dilated. Aortic valve: Aortic fibrocalcific (non-stenotic) changes are present and are mild. There is trivial aortic regurgitation. Mitral valve: There is mild mitral regurgitation due to a focal P2 prolapse. Tricuspid valve: There is mild tricuspid regurgitation. Pulmonary valve: Normal pulmonic valve. Great Vessels: Normal sinus of Valsalva. Normal pulmonary vein size, number and insertions into the left atrium. Aortic atherosclerosis is present and involves ascending aorta, arch. Its severity is small to moderate (focal thickening > 2mm, < 5mm). Pericardium & pleura: No evidence of a pericardial effusion. Hemodynamics: Systolic RV-RA pressure gradient is 20 mmHg. (Upper normal is 30 mmHg). Miscellaneous Summary: A mass is seen in the right ventricle which is most consistent with a electrical lead. Evidence of shunting is seen in the atria. This is minimal and is suggestive of a patent foramen ovale. No evidence of a thrombus in the left atrial appendage. Spontaneous echocardiographic contrast was seen in the LA, left atrial appendage (a marker of bloodstasis and a hypercoagulable environment) and its intensity is moderate. No evidence of valvular vegetations. LINDA Procedure Information LINDA performed by: the attending and the fellow Type of Anesthesia: Moderate sedation- See [facility] for blood pressure monitoring Procedure Summary Left ventricular systolic function is [...] is present See above for further details. documented in this encounter Plan of Treatment DateTypeDepartmentCare Team (Latest Contact Info)Wefbzvhdmbk18/21/2026 11:00 AM ESTOffice Visit [facility] Infectious Disease [facility] [address] [place] [address] Jacqueline Baptiste MD [address] [place] [address] documented as of this encounter Procedures Procedure NamePriorityDate/TimeAssociated DiagnosisCommentsECHOCARDIOGRAM REPORT 07/02/2025 9:09 AM EST documented in this encounter Results * ECHOCARDIOGRAM REPORT (07/02/2025 9:09 AM EST)ComponentValueRef RangeTest MethodAnalysis TimePerformed AtPathologist SignatureLeft Ventricular Ejection Indivzsv44%HEART AND VASCULAR CLINICAortic RegurgitationtrivialHEART AND VASCULAR CLINICMitral RegurgitationmildHEART AND VASCULAR CLINICAnatomical RegionLateralityModalityOtherSpecimen (Source)Anatomical Location / Laterality Collection Method / VolumeCollection TimeReceived Time07/02/2025 9:09 AM EST Narrative Procedure Note Anam Aquino MD - 07/02/2025 9:09 AM EST Transesophageal Echocardiography (LINDA) Study Status:Finalized Demographics Patient name: RANCHO MARADIAGA PatientID: [id number] Gender: Male Height:70 in. Date of : 1935 Weight:135 lb. Age: 89 year(s) BMI:19.4 kg/m^2 BSA:1.77 m^2 Procedure StaffIndications Endocarditis. Interpreting physician: ANAM AQUINO MD Referring Physician: TYRESE FORD MD Fellow: Jose Núñez Nurse: Davi Clark Procedure Information Proc. sub type: LINDA procedure: CARD TRANSESOPH ECHOW/ANESTH. Accession no: [id number] Studylocation: Pre-Post Room Procedure date/time: 07/02/2025 9:09 AM Status:Routine Imagequality: Fair-Good Procedure Medications Medication Name Administration Route Dosage DosageUnit Delivery Date and Time Delivered by Viscous lidocaine 4% lidocaine Versed 1 mg Fentanyl 25 mcg Moderate sedation time 17 minutes LINDA Findings Complications: Study complications: none. Procedure Difficulties: Procedural difficulty: none. Is intraoperative linda: No TEEconsent obtained: Yes LINDA performed by: the attending and the fellow Type of anesthesia: Moderate sedation- See EMR for blood pressure monitoring Findings Left ventricle: Left ventricular systolic function is focally abnormal superimposed onglobal. Focal LV systolic dysfunction consists of akinesia of the entire apex. The left ventricular ejection fraction (LVEF) is 35% +/- 5% by the singleplane summation of discs (Pandey's rule) method. Left atrium: The left atrial size is severely increased. Right ventricle: Normal right ventricular size and function. The percent area shortening is 38 (normal >35%, mildly reduced <35 to >29%, moderately reduced <29 to > 22%, and severely reduced < 22%). Right atrium: The right atrium is dilated. Aortic valve: Aortic fibrocalcific (non-stenotic) changes are present and are mild. There is trivial aortic regurgitation. Mitral valve: There is mild mitral regurgitation due to a focal P2 prolapse. Tricuspid valve: There is mild tricuspid regurgitation. Pulmonary valve: Normal pulmonic valve. Great Vessels: Normal sinus of Valsalva. Normal pulmonary vein size, number and insertions into the left atrium. Aortic atherosclerosis is present and involves ascending aorta, arch. Its severity is small to moderate (focal thickening > 2mm, < 5mm). Pericardium & pleura: No evidence of a pericardial effusion. Hemodynamics: Systolic RV-RA pressure gradient is 20 mmHg. (Upper normal is 30 mmHg). Miscellaneous Summary: A mass is seen in the right ventricle which is most consistent with aelectrical lead. Evidence of shunting is seen in the atria. This is minimal and issuggestive of a patent foramen ovale. No evidence of a thrombus in the left atrial appendage. Spontaneous echocardiographic contrast was seen in the LA, left atrialappendage (a marker of blood stasis and a hypercoagulable environment) and its intensity is moderate. No evidence of valvular vegetations. LINDA Procedure Information LINDA performed by: the attending and the fellow Typeof Anesthesia: Moderate sedation- See EMR for blood pressure monitoring Procedure Summary Left ventricular systolic function is focally abnormal superimposed onglobal. Focal LV systolic dysfunction consists of akinesia of the entire apex. The left ventricular ejection fraction (LVEF) is 35% +/- 5% Normal right ventricular size and function. Dilated LA, RA. There is mild mitral regurgitation due to a focal P2 prolapse. There is mild tricuspid regurgitation. Noninvasive hemodynamic assessment is consistent with normal pulmonaryartery systolic pressure. Evidence of shunting is seen in the atria. This is minimal and issuggestive of a patent foramen ovale. No evidence of a thrombus in the left atrial appendage. No evidence of valvular vegetations. Aortic atherosclerosis is present See above for further details. Authorizing ProviderResult TypeResult StatusFritz ESPARZA NON-INVASIVE CARDIOVASCULARFinal Result documented in this encounter Visit Diagnoses Not on filedocumented in this encounter
--- OUTSIDE RECORDS SUMMARY | 2025-07-10 12:47 | XMS_ITS | Encounter Summary ---
Author Organization [facility] Address [address] [place] [address] Care Team Providers Care Seamstress Fitter Name Role Phone Unavailable Primary Care Provider Unavailabl e Encounter Details DateTypeDepartmentCare Team (Latest Contact Info)Faqumrqdleq43/17/2025Travel Social History Tobacco UseTypesPacks/DayYears UsedDateSmoking Tobacco: Never AssessedBLAN[facility] UtilitiesAnswerDate RecordedIn the past 12 months [...] InformationValueDate RecordedSex Assigned at BirthNot on fileLegal VaoQyvq63/22/2023 9:47 AM ESTGender IdentityNot on file Sexual OrientationNot on filedocumented as of this encounter Plan of Treatment DateTypeDepartmentCare Team (Latest Contact Info)Oisbeimkjcw91/21/2026 11:00 AM ESTOffice Visit [facility] Infectious Disease [facility] [address] [place] [address] Jacqueline Baptiste MD [address] [place] [address] documented as of this encounter Visit Diagnoses Not on filedocumented in this encounter
--- OUTSIDE RECORDS SUMMARY | 2025-07-10 12:47 | XMS_ITS ---
Author Organization [facility] Address [address] [place] [address] Care Team Providers Care Uc Architect Name Role Phone Unavailable Primary Care Provider Unavailabl e Transitional Care Management (TCM) Status:Closed (Closed) Start date:07/04/2025 Enrollment date:07/04/2025 Enrollment reason:Hospital Discharge End date:07/04/2025 Close reason:Unable to reach patient Related social drivers of health:Intimate Partner Violence, Social Connections, Alcohol Use, Tobacco Use, Financial Resource Strain,Depression, Stress, Physical Activity, Food Insecurity, Transportation Needs, Housing Stability Overview Tristan Joseph Transitional Care Management Continued Care and Services Coordination
--- OUTSIDE RECORDS SUMMARY | 2025-07-10 12:47 | XMS_ITS | Encounter Summary ---
Author Organization [facility] Address [address] [place] [address] Care Team Providers Care Travel Agency Manager Name Role Phone Arnold Castro DO Primary Care Provider Arnold Castro DO Unavailable Patrick Beard MD Unavailable Andrey Grullon MD Unavailable [phone] Saúl Davis MD Unavailable [phone] Encounter Details DateTypeDepartmentCare Team (Latest Contact Info)Vsosirdpdwy81/29/2025Patient Outreach [facility] [address] [place] [phone] Alejandrina Santamaria LPN [address] [place] [address] Social History Tobacco UseTypesPacks/DayYears UsedDateSmoking Tobacco: Every DayCigarettes0.330 Started: 07/12/1947Smokeless Tobacco: Never Comments:Has a history of ce ssation from smokin02/09/2018 Alcohol UseStandard Drinks/WeekCommentsYes5 (1 standard drink = 0.6 oz pure alcohol)AUDIT-CAnswerDate RecordedQ1: How often do you have a drink containing alcohol?2-4 times a month01/20/2023Q2: How many drinks containing alcohol do you have on a typical day when you are drinking?1 or Q3: How often do you have six or more drinks on one occasion?Never3PHQ-2AnswerDate Recorded Patient Health Questionnaire-2 [id number] and Gender InformationValue Date RecordedSex Assigned at BirthNot on fileLegal GsqWpog9909/23/2022 6:39 PM EDT Gender IdentityNot on fileSexual OrientationNot on filedocumented as of this encounter Progress Notes * Alejandrina Santamaria LPN - 07/09/2025 10:19 AM EST Images from the original note were not included. Flowsheet Row Patient Outreach from 07/09/[address] [facility] with Alejandrina Santamaria LPN Hospital Information ED, Hospital or Long Term Facility Discharge? Hospital Patient has been contacted within 2 days of being seen in the ED Yes Patient has been contacted within two business days of discharge Yes Diagnosis MSSA BACTEREMIA, ACUTE MIDLINE BACK PAIN, CAD Discharge Date 07/04/25 Discharged To: Home Setting Discharge Hospital [facility] Engagement Call Start Time 1039 Admission Date 06/24/25 Medications Discharge medications reviewed and reconciled from hospital? Yes [IV ERTAPENEM EVERY 2 HOURS X6 WEEKS, LIDOCAINE PATCHES, OXYCODONE 5 MG, TYLENOL, IRON] Is the patient having any side effects they believe may be caused by any medication additions or changes? No Does the patient have all medications ordered at discharge? Yes Is the patient taking all medications as directed (includes completed medication regime)? Yes Nursing Interventions Nurse provided patient education Appointments Does the patient have a primary care provider? Yes Does the patient have any upcoming specialty appointments? Yes [UROLOGY, INFECTIOUS DISEASE] Self Management Does patient have home health? yes What is the home health agency? [facility] Patient Teaching Does the patient have access to their discharge instructions? Yes What is the patient's perception of their health status since discharge? Improving Wrap Up Wrap Up Additional Comments SERGO, TTE, EGD, MRI, LABS, BLOOD CULTURES, PICC LINE PLACEMENT Call End Time 1048 Pt admitted to [facility] on 06/24/2025 with PMH of HFrEF s/p biventricular ICD, CAD s/p PCI, CKD3, BPH s/p TURP who presented for MSSA bacteremia likely related to recent genitourinary instrumentation. Blood cultures initially showed 1/2 GPC on 06/24 and 06/26, with subsequent cultures from howing no growth to date. MRI thoracic spine on 06/27 revealed T10 acute/subacute compression fracture with enhancement extending to T9 concerning for osteomyelitis, while MRI lumbar spine showed diffuse enhancement and marrow edema in S1 concerning for possible osteomyelitis. TTE was negative forendocarditis, and EGD on 06/29 was normal. Patient was treated with cefazolin (previously on Zosyn at OSH), and SERGO was pending for 07/02 with plans for PICC line placement if SERGO negative and blood cultures remained negative. Patient's hemoglobin decreased from 10.4 to 8.8 during admission, with iron studies showing iron of 19 and saturation of 8% will need PO iron once infection is treated; EGDwas negative for bleeding source. reports pt is glad to be home, but it's going to be a slow process. He has IV antibiotics for 6 weeks with Claudia PERES managing. He will have follow ups with Urology and Infectious Disease in July. didn't wish to schedule a follow up with PCP at this time, stating she has a lot going on right now. He is scheduled for V 08/13/25. * Alejandrina Santamaria LPN - 07/09/2025 10:19 AM EST Please see TCM notes for outreach. Care plan updated. Please review and sign, thank you. <July 09, 2025, 11:28 - Chela Branch RN> Chart reviewed and signed. * Alejandrina Santamaria LPN - 07/09/2025 10:19 AM EST Images from the original note were not included. 07/09/2025 Manolo Roche [address] [place] [phone] Problem: Diet Management Goal: Learn to Manage Diet Intervention: Provide resources for a balanced and healthy diet , Problem: HbA1C is uncontrolled Goal: Establish Regular Follow-Ups with PCP Intervention: Determine patient's next PCP visit , Problem: HbA1C is uncontrolled Goal: Reduce HbA1C levels below 9% Intervention: Educate patient on diet and exercise Intervention: Educate patient on regular BS checks , Problem: Med Adherence Goal: Consistently take medications as prescribed , and Problem: Diabetes Education Goal: Patient will have sufficient knowledge about diabetes Intervention: Educate patient on signs and symptoms of high and low blood sugars and what to do in each situation documented in this encounter Plan of Treatment DateTypeDepartmentCare Team (Latest Contact Info)Beecrbjfkoy50/02/2026 2:00 PM ESTOffice Visit [facility] [address] [facility] [address] [address] [facility] [address] [place] [address] Marga Robledo NP [address] [facility] [address] [place] [address] documented as of this encounter Visit Diagnoses Diagnosis 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 Coronary arteriosclerosis Coronary atherosclerosis of unspecified type of vessel, shish[place]f ira or graft Pancreatic insufficiency (HCC) Other specified disease of pancreas documented in this encounter Additional Health Concerns AssessmentNoted TimePQ-9 Depression Total Score: 15002/05/2023 7:10 AM EDT documented as of this encounter Care Teams Team MemberRelationshipSpecialtyStart DateEnd Date Arnold Castro DO [address] [facility] [address] [place] [address] PCP - GeneralInternal Medicine01/08/23 Arnold Castro DO [address] [facility] [address] [place] [address] PCP - ACO Reach09/10/23 Patrick Beard MD [address] [facility] [address] [place] [address] Referring WdjvfcfgpIybkdyywdzlgjlvg45/7/24 Andrey Grullon MD [address] [facility] [address] [place] [address] Referring LeyjphotxDpdajlqfp73/7/24 Saúl Davis MD [address] [place] [address] 2, [facility] [address] [place] [address] Referring BkfpkchbgNvugtuprtp45/7/24documented as of this encounter
--- OUTSIDE RECORDS SUMMARY | 2025-07-10 12:47 | XMS_ITS | Encounter Summary ---
Author Organization [facility] Address [address] [place] [address] [place] [phone] Care Team Providers Care New Car Sales Manager Name Role Phone Unavailable Primary Care Provider Unavailabl e Reason for Visit * ReasonOnset DateCommentsstart of home care07/06/2025 Encounter Details DateTypeDepartmentCare Team (Latest Contact Info)Jqnkqjstocj86/26/2025Telephone [facility] Infectious Disease [facility] [address] [place], [place] [phone] Jacqueline Baptiste MD [address] [place], [place] [phone] start of home care Social History Tobacco UseTypesPacks/DayYears UsedDateSmoking Tobacco: Never AssessedC[facility] UtilitiesAnswerDate RecordedIn the past 12 months has the electric, gas, oil, or water [employer] threatened to shut off services in your [...] InformationValueDate RecordedSex Assigned at BirthNot on fileLegal BpuTygb50/22/2023 9:47 AM ESTGender IdentityNot on file Sexual OrientationNot on filedocumented as of this encounter Miscellaneous Notes * Telephone Encounter - Teodoro Metzger - 07/06/2025 12:05 PM EST Claudia called to notify Emile that they received home care orders and started the Pt on 24dec, and wanted to reconfirm she is ok to follow the Pt. Contact for further info if needed. flaquita villalobos [phone] documented in this encounter Plan of Treatment DateTypeDepartmentCare Team (Latest Contact Info)Yzehvvasxfs60/21/2026 11:00 AM ESTOffice Visit [facility] Infectious Disease O[facility] [address] [place] [address] Jacqueline Baptiste MD [address] [place] [address] documented as of this encounter Visit Diagnoses Not on filedocumented in this encounter
--- OUTSIDE RECORDS SUMMARY | 2025-07-10 12:47 | XMS_ITS | Clinical Summary ---
Author Organization [facility] Healthcare Address [address] [place] [address] Care Team Providers Care Mailroom Supervisor Name Role Phone Arnold Castro DO Primary Care Provider [phone] Arnold Castro DO Unavailable [phone] Patrick Beard MD Unavailable [phone] Andrey Grullon MD Unavailable Saúl Davis MD Unavailable [phone] Allergies No known active allergies Medications MedicationSigDispense QuantityRefillsLast FilledStart DateEnd DateStatus aspirin 81 MG EC tablet Take 81 mg by mouth in the morning.Active Acetaminophen Extra Strength 500 MG tablet Daily.Active nitroglycerin (Nitrostat) 0.[address] 0.4 mg under the tongue.Active glucose blood (Contour Next Test) test strip Indications: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 (HCC)1 each by Other route in the morning and 1 each at noon and 1 each in the evening. Take before meals. Use as instructed. 300 each ctive albuterol HFA (ProAir HFA) 90 mcg/act inhaler Indications:BronchitisInhale 2 puffs every 4 (four) hours if needed for wheezing or shortness of breath 8.5 g 5007/20/2025ctive Gvoke HypoPen 1-Pack 1 MG/0.2ML injection Inject 1 mg under the skin 1 (one) time if neededActive BD Pen Needle Marichuy 2nd Gen 32G X 4 MM misc Use with Insulin Once Daily in case of pump ergyxgk16/26/2025Active cholecalciferol (Vitamin D-3) 50 MCG (1999) tablet Take 2,000 Units by mouth Daily4Active tamsulosin (Flomax) 0.4 MG 24 hr capsule Take 1 capsule by mouth at slcgyyk17/05/2024Active spironolactone (Aldactone) 25 MG tablet Indications:Chronic systolic CHF (congestive heart failure), NYHA class 2 (HCC) Take 1 tablet (25 mg) by mouth Daily 90 tablet 5Active atorvastatin (Lipitor) 40 MG tablet Indications:Mixed hyperlipidemiaTake 1 tablet (40 mg) by mouth Daily05/02/2025 Active pancrelipase, Xug-Mytr-Soik, (Creon) 15334-38167 units capsule Indications:Pancreatic insufficiency (HCC)TAKE 2 CAPSULES BY MOUTH DAILY WITH MEALS AND 1 WITH 2 SNACKS DAILY DIRECTED 250 capsule 05/02/2025tive Insulin Aspart 100 UNIT/ML solution Indications: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 Injectbefore meals. 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 Do not crush or chew.5Active Additional Information Patient taking differently: 12.5 mgOral 2 times daily, Morning, Bedtime, Do not crush or chew., Reported on 05/04/2025 pantoprazole (ProtoNix) 40 MG EC tablet Take 40 mg by mouth in the morning. Take before meals. Do not crush, chew, or split.Active senna-docusate sodium (Senokot-S) 8.6-50 MG tablet Take 1 tablet by mouth DailyActive Active Problems ProblemNoted DateDiagnosed DateHistory of bleeding peptic ulcer05/31/2024 Overview (05/31/2024): Hx HPylori Chronic systolic CHF (congestive heart failure), NYHA class Overview (05/31/2024): Left Ventricle: Left ventricle appears normal in size. Systolic function is moderately to severely decreased with an ejection fraction of 30-35%. There is grade II (moderate) diastolic dysfunction and elevated left atrial pressure. Mitral Valve: There is moderate regurgitation. Nonrheumatic mitral valve pnktnefgkwmul56/20/2024 Overview (05/31/2024): Mitral Valve: There is moderate regurgitation. There is no evidence of mitral valve stenosis. . Moderate pulmonary arterial systolic yfiwmqhuffrb98/20/2024 Overview (05/31/2024): Left Ventricle: Left ventricle appears [...] moderate pulmonary hypertension. ICD (implantable cardioverter-defibrillator) in place05/25/2024Insulin pump in place10/22/2023Current moderate episode of major depressive disorder without prior vrovzek80/28/2023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 02/04/2023 Assessment & Plan (02/04/2023 9:30 PM [...] current care plan and goals were discussed. Acopy of this along with pertinent instructions were given to the patient at the end of the appointment. The patient voices understanding of all of this and is to call in between appointments if they have any problems or questions. Ashwini Roche is doing okay. , The patient is wearing their cgm on a daily basis and making decisions in regards to adjusting insulin daily as well for at least the last 60 days , Discussed dietarychanges at length. Encouraged to limit simple carbs and focus more on healthy protein/fat with all meals and snacks. They should also avoid any sugary drinks. , Instructions given today include: Hypoglycemia management, Pump instructions, and Dietary education. He is to work on rotating his pump sites and try in the upper buttock region. I feel that he is having some failed sites/kinked sites dueto scar tissue and very little fat. He is to monitor for this closely and gave him the instructionson what to do if they don't think pump is working. Made all corrections to his pump settings. He isto bring in his new pump for me to set up when it is charged. He is not to make any changes in his pump settings. Will work on getting him the dexcom G7. 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 ezufsxde93 Acute right hip painecent fracture of hip05/26/2023 04/17/2024 Overview (05/26/2023): 04/28 intertroch right hip - ORIF Right thigh painHip fracture due to osteoporosis, sequela Need for immunization against odhhkdnbs01 Sepsis due to Escherichia coli without acute organ appkrpdkmkv09/22/2023 04/17/2024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/upuytren contracture round glass opacity present on imaging of lung02/05/2023 02/05/20236791Bbxexwquw293Perforated gastric ulcer02/05/2023 02/05/2023Medicare annual wellness visit, uqonybhjma99 Assessment & Plan (05/26/2023 2:22 PM EST): Patient here for annual Medicare Wellness visit. 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 Demographics were updated. Self-assessment was completed. Past [...] such as diet and exercise. Generalized anxiety uwbirkpc64/iabetes mellitus due to underlying vwuakuufo52IPMN (intraductal papillary mucinous neoplasm) Overview (02/05/2023): Added automatically from request for surgery [id number] Rcgffy65 Overview (02/01/2023): Black and logans occasional Encounters DateTypeDepartmentCare MskbYvxiskrqiss05/29/2025Patient Outreach [facility] [address] [place] [address] Alejandrina Santamaria LPN 5Clinisync Result Encounter [facility] External Department Unsolicited Provider, Generic External Data 06/22/2025Orders Only [facility] [place] [facility] [address] [place] [address] Unallocated, [facility] MD José Miguel 06/21/2025Orders Only [facility] [place] [facility] [address] [place] [address] Unallocated, [facility] MD José Miguel 5Clinisync Result Encounter [facility] External Department Unsolicited Provider, Generic External Data 06/20/2025Orders Only [facility] [place] [facility] [address] [place] [address] Unallocated, Nomkeiko Valdez MD 06/01/2025Patient Outreach [facility] [address] [place] [address] Alejandrina Santamaria LPN 05/25/2025Patient Outreach [facility] [address] [place] [address] Alejandrina Santamaria, GEAR MACHINE OPERATOR GENERAL 05/21/2025Patient Outreach [facility] [address] [place] [address] Alejandrina Santmaaria, GEAR MACHINE OPERATOR GENERAL 5Clinisync Result Encounter [facility] External Department Unsolicited Provider, Generic External Data 05/10/2025Patient Outreach [facility] [address] [place] [address] Alejandrina Santamaria, GEAR MACHINE OPERATOR GENERAL 5Clinisync Result Encounter [facility] External Department Unsolicited Provider, Generic External Data 05/04/2025Patient Outreach [place] [address] [place] [address] Emi Canas, GEAR MACHINE OPERATOR GENERAL 05/02/2025 9:30 AM EDTOffice Visit [facility] [address] [place] [address] Marga Robledo NP Need for follow-up care after discharge (Primary Dx); [...] of pancreas; ICD (implantable cardioverter-defibrillator) in place; Nraiyopyh66/22/4005Pfenbp71/22/2025Patient Outreach [facility] [address] [place] [address] Emi Canas, GEAR MACHINE OPERATOR GENERAL 04/24/2025Patient Outreach [facility] [address] [place] [place] [address] Emi Canas, GEAR MACHINE OPERATOR GENERAL 04/23/2025Patient Outreach [place] [address] [place] [address] Emi Canas, GEAR MACHINE OPERATOR GENERAL 04/17/2025Patient Outreach [facility] [address] [place] [address] Emi Canas, JACINTA 04/11/2025Orders Only [facility] [address] [place] [address] Unallocated, [facility] MD José Miguel from Last 3 Months Immunizations ImmunizationAdministration DatesNext DueHib (PRP-OMP)08/18/2018Influenza, High Dose Seasonal, Preservative Free04/24/2025,04/29/2022,04/29/2021,03/03/2017 Influenza, Seasonal, Quadrivalent, Mtaqnykvjd97/08/2023Influenza, trivalent, wdwkyldrcr04/07/2024,04/24/2020,04/03/2019,2018Meningococcal B, Omv 09/15/2019,08/18/2018Meningococcal GWB1L5709/15/2019Moderna Bivalent Booster Qulrrjfclzt66/15/2022Moderna SARS-CoV-2 Xtcdsmghufr52/07/2023,08/22/2020, 1Pneumococcal Conjugate PCV 1306,08/18/2018Pneumococcal Polysaccharide CNJQ0074,12/25/2015RSV, recombinant, protein subunit RSVpreF, adjuvant reconstitu, 120mcg/0.5mL, PF (Arexvy)05/18/2023Td (adult), 5 Lf tetanus toxoid, preservative free, hsknxacm31/07/4896Bjve22/07/2015Zoster, Tqvmckeddaw67/07/2023,05/02/2021Zoster, live05/05/2021 Family History Medical HistoryRelationNameCommentsCancerBrotherPassed away at age 75 from possible unknown cancerNo Known ProblemsFatherPassed away at age 82StrokeMother GraceCancerSisterMaryLeukemiaSisterMaryPassed away at age 33 from leukemia synovial cell cancerSon 1CancerSon 2ScottRelationNameStatusCommentsBrother DeceasedDaughter1 daughterFatherDeceasedMotherGraceDeceasedSisterMaryDeceasedSon 4Yqzds6 Aniket 2Scott Social History Tobacco UseTypesPacks/DayYears UsedDateSmoking Tobacco: Every DayCigarettes0.330 Started: 07[birth year]12[birth year]1949Smokeless Tobacco: Never Tobacco Cessation:Ready to Q uit: Not Asked; Counseling Given: Not Answered Comments:Has a history of cessation from smokin02/09/2018 Alcohol UseStandard Drinks/WeekCommentsYes5 (1 standard drink = 0.6 oz pure alcohol)AUDIT-CAnswerDate RecordedQ1: How often do you have a drink containing alcohol?2-4 times a month01/20/2023Q2: How many drinks containing alcohol do you have on a typical day when you are drinking?1 or Q3: How often do you have six or more drinks on one occasion?Never01/20/2023HQ-2AnswerDate Recorded Patient Health Questionnaire-2 Hcgxc067Sex and Gender InformationValue Date RecordedSex Assigned at BirthNot on fileLegal VjaWayu6409/23/2022 6:39 PM EDT Gender IdentityNot on fileSexual OrientationNot on file Last Filed Vital Signs Vital SignReadingTime TakenCommentsBlood Ybqutvvz259/6005/02/2025 9:45 AM EDT Qcynv870905/02/2025 9:45 AM QWBTdlyfnihfkq60.4 ??C (97.6 ??F)12/13/2023 10:26 AM EDTRespiratory Rhbt216110/27/2023 1:15 PM EDTOxygen Nuzvmuzmxq02%05/02/2025 9:45 AM EDTInhaled Oxygen Concentration--Ngylbv31.5 kg (140 lb)05/02/2025 9:45 AM EDT Thmhlh897.8 cm (5' 10 )01/02/2025 11:38 AM EDTBody Mass Index20.0901/02/2025 11:38 AM EDT Plan of Treatment DateTypeDepartmentCare Team (Latest Contact Info)Uzlpuysnzub02/02/2026 2:00 PM ESTOffice Visit [facility] [address] [place] [address] Marga Robledo, VEGETABLE FARM MANAGER [address] [place] [address] Health MaintenanceDue DateLast DoneCommentsMedicare Annual Wellness (AWV) 2Diabetes: Retinopathy Awmxkcvwu46/, 11/19/2021, 11/16/2019Diabetes: Hemoglobin A1C07/09/35362204/09/2025, 10/26/2024, 07/06/2024, Additional history existsDiabetes: Urine Protein Sbhaoznir12/17/2026 09/25/2024, 09/25/2024, 1Pneumococcal Vaccine: 65+ YearsCompleted 04/17/2025, 12/26/2019, 09/15/2019, Additional history existsInfluenza Vaccine Flsqaguau74/14/2025, 04/17/2024, 05/19/2023, Additional history exists Procedures Procedure NamePriorityDate/TimeAssociated DiagnosisCommentsBLOOD CULTURE 2 Ackkupf3206/24/2025 5:54 AM EST BLOOD CULTURE 2Hmijjcg06/14/2025 5:46 AM EST BLOOD CULTURE 6Ciwwlyo48/10/2025 3:18 PM EST BLOOD CULTURE 7Uelycwy28/10/2025 3:10 PM EST XR THORACIC SPINE 2 PVTUGMrgrpmp43/10/2025 2:58 PM ESTXR LUMBAR SPINE 2-3 VIEWS Oitfoye5406/20/2025 2:57 PM ESTURINE CULTURE - DGQMMclquzr78/10/2025 1:[address] ABDOMEN PELVIS W AND WO IV MTEWCQXKOqzuvvq58/10/2025 9:40 AM ESTCT THORACIC SPINE W/O CONTRAST*Prxkprp8006/20/2025 8:27 AM ESTCT LUMBAR SPINE W WO CONTRAST Ricctsr9406/20/2025 8:23 AM AQFDUE26 2:33 PM EDT ITP05/08/2025 2:09 PM EDT POCT GLYCOSYLATED HEMOGLOBIN (HGB A1C)Nqqakrq6504/17/2024 10:58 AM EDT 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 (HCC) COLOR FUNDUS PHOTOGRAPHY - OU - BOTH GKEKJlgyvot09/15/2023 12:00 PM EDT MICROALBUMIN CREATININE RATIO, KHprhzwo77/25/2021 from Last 3 Months or Most Recently Relevant to Health Maintenance Results * BLOOD CULTURE 2 (06/24/2025 5:54 AM EST) Only the most recent of2 resultswithin the time period is included. ComponentValueRef RangeTest MethodAnalysis TimePerformed AtPathologist Signature BLOOD CULTURE 2 ??Blood Culture 2 NG5D NO GROWTH AT 5 DAYS.^NO GROWTH AT 5 DAYS. TBHSpecimen (Source)Anatomical Location / LateralityCollection Method / Volume Collection TimeReceived Time06/24/2025 5:54 AM EST06/24/2025 6:18 AM EST Narrative [facility] - 06/29/2025 2:42 PM EST Authorizing ProviderResult TypeResult StatusGeneric External Data ProviderLAB BLOOD ORDERABLESFinal ResultPerforming OrganizationAddressty/State/ZIP Code Phone Number [facility] * BLOOD CULTURE 1 (06/24/2025 5:46 AM EST) Only the most recent of2 resultswithin the time period is included. ComponentValueRef RangeTest MethodAnalysis TimePerformed AtPathologist Signature BLOOD CULTURE 1 ??Blood Culture 1 NG5D NO GROWTH AT 5 DAYS.^NO GROWTH AT 5 DAYS. TBHSpecimen (Source)Anatomical Location / LateralityCollection Method / Volume Collection TimeReceived Time06/24/2025 5:46 AM EST06/24/2025 6:17 AM EST Narrative [facility] - 06/29/2025 2:41 PM EST Authorizing ProviderResult TypeResult StatusGeneric External Data ProviderLAB BLOOD ORDERABLESFinal ResultPerforming OrganizationAddressCity/State/ZIP Code Phone Number [facility] * XR thoracic spine 2 views (06/20/2025 2:58 PM EST)Anatomical RegionLaterality ModalitySpine, T-spineRadiographic Imaging Narrative Authorizing ProviderResult TypeResult StatusNoms Provider Unallocated MDIMG XR PROCEDURESFinal Result * XR lumbar spine 2 or 3 views (06/20/2025 2:57 PM EST)Anatomical Region LateralityModalitySpine, L-spineRadiographic Imaging Narrative Authorizing ProviderResult TypeResult StatusNoms Provider Unallocated MDIMG XR PROCEDURESFinal Result * (ABNORMAL) URINE CULTURE - [facility] (06/20/2025 1:45 PM EST)ComponentValueRef RangeTest MethodAnalysis TimePerformed AtPathologist SignatureURINE CULTURE - [facility] [place] ??Urine Culture - [facility] RESULT^[facility] RESULT (A)[facility] SEE [facility]PORT, ABNORMAL^SEE SCANNED REPORT, ABNORMAL(A)TBHSpecimen (Source)Anatomical Location / LateralityCollection Method / VolumeCollection TimeReceived Time06/20/2025 1:45 PM EST06/20/2025 1:51 PM EST Narrative [facility] - 06/23/2025 8:36 AM EST Authorizing ProviderResult TypeResult StatusGeneric External Data ProviderLAB BLOOD ORDERABLESFinal ResultPerforming OrganizationAddressCity/State/ZIP Code Phone Number [facility] * CT abdomen pelvis w and wo IV contrast (06/20/2025 9:40 AM EST)Anatomical RegionLateralityModalityBody, Pelvis, AbdomenComputed Tomography Narrative Authorizing ProviderResult TypeResult StatusNoms Provider Unallocated MDIMG CT PROCEDURESFinal Result * CT THORACIC SPINE W/O CONTRAST* (06/20/2025 8:27 AM EST)Anatomical Region LateralityModalityRadiographic Imaging Narrative Authorizing ProviderResult TypeResult StatusNoms Provider Unallocated MDIMG XR PROCEDURESFinal Result * CT LUMBAR SPINE W WO CONTRAST (06/20/2025 8:23 AM EST)Anatomical Region LateralityModalityRadiographic Imaging Narrative Authorizing ProviderResult TypeResult StatusNoms Provider Unallocated MDIMG XR PROCEDURESFinal Result * ITP (05/10/2025 2:33 PM EDT) Only the most recent of2 resultswithin the time period is included. Anatomical RegionLateralityModalityOtherSpecimen (Source)Anatomical Location / LateralityCollection Method / VolumeCollection TimeReceived Time05/10/2025 2:33 PM EDT Narrative 05/10/2025 3:44 PM EDT [facility] ?[address] ? [place] [address] ?Cardiac Rehab Report ? Signed ? Patient: SBERNA,ASHWINI J ?MR#: [id number] ?? : 1935 ?Acct:[id number] ?? Age/Sex: 89 / M ?ADM Date: 05/10/25 ?? Loc: CR ? Attending Dr: Anat Perez M.D. ? Ordering Physician: Marito Jimenez M.D. ?? Date of Service: 05/10/25 ?? Procedure(s): ITP ?? Accession Number(s): [id number] ? cc: ?[facility] ? Test Date: ?2025-05-10 ?? Pat Name: ? ASHWINI SBERNA ?Department: ? Room: ? - ?? Gender: ? Male ? Public Health Physician: ? : ?1935 ? Requested By: EHAB ??ELTAHAWY ?? Order Number: [id number] ?Reading MD: ?? ASIYA ??Mikel ROACH ? Interpretive Statements ?? Patient may start cardiac rehab as outlined in the treatment plan. ? Electronically Signed On 05-10-2025 15:43:30 EDT by ASIYA ??Mikel ROACH ? Dictated By: ?ASIYA ROACH ? Signed By: ?05/10/25 1544 ?05/10/ 1544 ? DD/DT: 05/10/ 1433 ? TD/TT: ? Phy Therapist: Procedure Note Radiology, Radiologist, MD - 05/10/2025 [place] [address] Cardiac Rehab Report Signed Patient: ASHWINI ROCHE JMR#: [id number] : 1935cct:[id number] Age/Sex: 89 / MADM Date: 05/10/25 Loc: CR Attending Dr: Anat Perez M.D. Ordering Physician: Marito Jimenez M.D. Date of Service: 05/10/25 Procedure(s): ITP Accession Number(s): [id number] cc: [facility] Test Date: 2025-05-10 Pat Name: ASHWINI ROCHE Department: Room: - Gender: Male Public Health Physician: : 1935 Requested By: MARITO JIMENEZ Order Number: [id number] Vu MD: ASIYA ROACH M.D. Interpretive Statements Patient may start cardiac rehab as outlined in the treatment plan. Electronically Signed On 05-10-2025 15:43:30 EDT by ASIYA ROACH M.D. Dictated By: ASIYA ROACH Signed By:05/10/25 1544 05/10/25 1544 DD/ 1433 TD/TT: Phy Therapist: Authorizing ProviderResult TypeResult StatusGeneric External Data Provider [facility] IMAGINGFinal Result * POCT glycosylated hemoglobin (Hb A1C) docked device (04/17/2024 10:58 AM EDT) ComponentValueRef RangeTest MethodAnalysis TimePerformed AtPathologist SignatureHemoglobin A1C9.8Specimen (Source)Anatomical Location / Laterality Collection Method / VolumeCollection TimeReceived TimeBloodVenous blood specimen / Gkirgie3104/17/2024 10:58 AM EDT Narrative Authorizing ProviderResult TypeResult StatusRobert Khoi Castro DOPOINT OF CARE TEST ENTER/EDIT ORDERABLESFinal Result * Color Fundus Photography - OU - Both Eyes (11/23/2022 12:00 PM EDT)Anatomical RegionLateralityModalityHeadFundus PhotographySpecimen (Source)Anatomical Location / LateralityCollection Method / VolumeCollection TimeReceived Time 11/23/2022 12:00 PM EDT Narrative 11/23/2022 12:00 PM EDT PERFORMED AT [facility] LOCATION:[id number] [facility] Procedure Note CONVERSION, GENERIC - 11/28/2022 PERFORMED AT [facility] LOCATION:[id number] [facility] Authorizing ProviderResult TypeResult StatusRobert J Matthew DOOPHTH PHOTOGRAPHY Final Result * (ABNORMAL) MICROALBUMIN CREATININE RATIO, U (05/05/2021)ComponentValueRef RangeTest MethodAnalysis TimePerformed AtPathologist SignatureMALB4.4<=30.0 [facility] HRYBY516.8220.00 - 300.00[facility] EXTER[facility] LABMALB CR RATIO40.8(HH)0.0 - 29.9[facility] EX[facility] LABMALB CR RATIO RANGE SEE BELOWNOMS LEGACY EXTERNAL LABComment:NO MICROALBUMINURIA 0-29 MG/G CLINICAL MICROALBUMINURIA 30-300 MG/G MACROALBUMINURIA >300 MG/GPERFORMING LAB:see noteNOMS LEGACY EXTERNAL LABComment:[address] Laboratory - [address] [place] [id number] ,Ext. 1466 specimen (Source)Anatomical Location / LateralityCollection Method / VolumeCollection TimeReceived Time05/05/2021 Narrative Authorizing ProviderResult TypeResult StatusRobert Khoi Castro DOECW LABSFinal ResultPerforming OrganizationAddressCity/State/ZIP CodePhone Number [facility] from Last 3 Months or Most Recently Relevant to Health Maintenance Insurance Advance Directives * DNR-CCA (Latest Code Status on File) Date ActivatedDate YrutjpwqswjFdmhakdk00/16/2024 7:43 AM Care Teams Team MemberRelationshipSpecialtyStart DateEnd Date Arnold Castro DO [address] [place] [address] PCP - GeneralInternal Medicine01/08/23 Arnold Castro DO [address] [place] [address] PCP - ACO Reach09/10/23 Patrick Beard MD [address] [facility] [address] [place] [address] Referring JohvahimgKekfelfyxeooqrcz89/7/24 Andrey Grullon MD [address] [place] [address] Referring EvqoujrxoRrjahtjxj85/7/24 Saúl Davis MD [address] [facility] [address], [place] [address] Referring UuoqaeaslMssnvbapaj33/7/24
--- OUTSIDE RECORDS SUMMARY | 2025-07-10 12:47 | XMS_ITS | Patient Health Record ---
Author Organization [facility] in [place] Address [address] [place] [address] Care Team Providers Care Tax Commissioner Name Role Phone Arnold Castro DO Primary Care Provider Unavail able Allergies No Known Allergies Reason For Referral No Information Medications Medication SIG (Take, Route, Frequency, Duration) Notes Start Date End Date Status Aspirin Low Dose 81 MG TAKE 1 TABLET BY MOUTH EVERY DAY FOR 30 DAYS Oral; Duration: 30 Days ActiveNovoLOG 100 UNIT/MLADMINISTER PER PUMP (MAX DAILY 60 UNITS) Injection; Duration: 90 DaysActiveAcetaminophen Extra Strength 500 MGTAKE 1 TABLET BY MOUTH EVERY 6 HOURS Oral; Duration: 22 DaysActiveNitroglycerin 0.4 MGSublingual; Duration: 30 DaysActiveCyclobenzaprine HCl 5 MGOral; Duration: 10 DaysActive Tamsulosin HCl 0.4 MG1 capsule Oral Once a day; Duration: 30 DaysActiveCVS Vitamin C 500 MGOral; Duration: 30 DaysActivePARoxetine HCl 30 MGOral; Duration: 90 DaysActiveCreon 06051-[address]80 UNITOral; Duration: 30 DaysActiveOyster Shell Calcium w/D 500-5 MG-MCGTAKE 1 TABLET BY MOUTH 3 TIMES A DAY WITH MEALS FOR 30 DAYS Oral; Duration: 30 DaysActiveAtorvastatin Calcium 80 MGOral; Duration: 30 DaysActiveOmnipod DASH Pods (Gen 4) -; Duration: 90 DaysActiveLantus SoloStar 100 UNIT/MLPLEASE SEE ATTACHED FOR DETAILED DIRECTIONS Subcutaneous; Duration: 30 DaysActiveHYDROcodone-Acetaminophen 5-325 MGOral; Duration: 7 DaysActive Vitamin Z3ZpyzzmBthklxd Sulfate 324 (65 Fe) MGTAKE 1 TABLET BY MOUTH EVERY DAY FOR 30 DAYS Oral; Duration: 30 DaysActiveValsartan 160 MGOral; Duration: 30 Days ActiveMultiple VitaminActive Social History Tobacco Use: Social History Observation Description Date Details (start date - stop date) Current Smoker NA - NA Tobacco Use/Smoking Question Answer Notes Patient is a current smoker Alcohol Screen (Audit-C) Question Answer Notes Did you have a drink containing alcohol in the p ast year? Yes How often did you have a drink containing alcohol in the past year?Daily or almost daily (4 points)Antnvk6RnwirfxhfpdhdsVqhtomjb Problems Problem Type SNOMED Code ICD Code Onset Dates Problem Status W/U Status Risk Notes Problem Hydronephrosis (02692553) Hydron ephrosis with ureteral stricture, not elsewhere classified (N13.1) ActiveconfirmedProblemObstructive uropathy (4355154)Other obstructive and reflux uropathy (N13.8)ActiveconfirmedProblemHypertension (91536639)HTN (hypertension) (I10)ActiveconfirmedProblemHypoglycemia (830500809)Hypoglycemia (E16.2)Active confirmedProblemHypoglycemic state in diabetes (243959141)Diabetes mellitus with hypoglycemia (E11.649)ActiveconfirmedProblemLower urinary tract symptoms due to benign prostatic hypertrophy (35335468629822)Benign prostatic hyperplasia with lower urinary tract symptoms (N40.1)ActiveconfirmedProblemDiabetic peripheral neuropathy associated with type 2 diabetes mellitus (2540587022564)Controlled type 2 diabetes with neuropathy (E11.40)ActiveconfirmedProblemChronic kidney disease stage 3 (disorder) (588838715)Chronic kidney disease (CKD), stage III (moderate) (N18.30)Activeconfirmed Plan Of Treatment No Information Insurance Providers Payer Name Payer Address Payer Phone Subscriber Number Group Number Insured Name Patient Relationship to Insured Coverage Start Date Coverage End Date [place] [address] [place] [address] [id number] Stephanie Roche - patient is the [id number] 2002[facility] [address] [address] [place], [place] [id number], SamuelSelf - patient is the [id number] 2007 Medical (General) History Medical History History ICD Code Diabetes Pancreas removed due to cystsUrinary tract ngnncxraxY81.0Hydronephrosis with ureteral stricture, not elsewhere lsaceobyvzV89.1Surgical History Surgery Date(Month/Year) Right femur surgery 04/2023 stomach ulcer surgery Pancreas removed
--- OUTSIDE RECORDS SUMMARY | 2025-07-10 12:47 | XMS_ITS | Clinical Summary ---
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 Cutting Machine Operator Helper Name Role Phone Arnold Castro DO Primary Care Provider Allergies No known active allergies Medications MedicationSigDispense QuantityRefillsLast FilledStart DateEnd DateStatus PARoxetine (PAXIL) 30 MG tablet Take 30 mg by mouth every morningActive ndggky-cubompvz-uxnwsvr (CREON) 84537-99[address] units delayed release capsule Take 1 capsule by mouth 3 times daily (with meals)Active ycelkc-amdeqkzh-lygvtzo (CREON) 63309-20467 units delayed release capsule Take 12,000 Units by mouth take with snacksActive Loratadine (CLARITIN PO) Take 10 mg by mouthActive Probiotic Product (PROBIOTIC-10 PO) Take 1 capsule by mouth dailyActive Multiple Vitamins-Minerals (LUTEIN-ZEAXANTHIN PO) Take 1 tablet by mouth dailyActive pantoprazole (PROTONIX) 40 MG tablet Take 1 tablet by mouth every morning (before breakfast) 90 tablet ctive sucralfate (CARAFATE) 1 GM/10ML suspension Take 10 mLs by mouth 4 times daily 1200 mL ctive amLODIPine (NORVASC) 5 MG tablet Take 1 tablet by mouth daily 30 tablet ctive Active Problems ProblemNoted DateDiagnosed DatePerforated nqrxtx7101/02/2022bsence of pancreas, odaejlyo23/24/2022iabetes mellitus due to underlying hhtvydtzb52/24/2022 Social History Tobacco UseTypesPacks/DayYears UsedDateSmoking Tobacco: FormerCigarettes Smokeless Tobacco: NeverAlcohol UseStandard Drinks/WeekCommentsNot Currently0 (1 standard drink = 0.6 oz pure alcohol)Sex and Gender InformationValueDate RecordedSex Assigned at BirthNot on fileLegal AoeYtlk4201/02/2022 9:35 AM EDT Gender IdentityNot on fileSexual OrientationNot on file Last Filed Vital Signs Vital SignReadingTime TakenCommentsBlood Gdfzdogn108/68001/08/2022 2:26 PM EDT Deqsw363001/08/2022 2:26 PM OOZJxzqwjctnep11.4 ??C (97.5 ??F)01/08/2022 2:26 PM EDTRespiratory Vmbl095801/08/2022 2:26 PM EDTOxygen Hqynwyoeck97%01/07/2022 7:46 AM EDTInhaled Oxygen Concentration--Purdjs11.3 kg (144 lb)01/08/2022 2:26 PM EDT Jyxbzw905.8 cm (5' 10 )01/08/2022 2:26 PM EDTBody Mass Index20.66001/08/2022 2:26 PM EDT Plan of Treatment [place] [address] Advance Directives * Full Code (Latest Code Status on File) Date ActivatedDate InactivatedComments01/02/2022 10:32 PM01/07/2022 3:15 PM * Full Code Date ActivatedDate InactivatedComments01/02/2022 8:11 PM01/02/2022 10:32 PM NameRelationshipHealthcare Agent RelationshipCommunicationRose Yodit SbernaSpouse Primary Decision Maker* Saúl WoodshildSecondary Decision Maker* Care Teams Team MemberRelationshipSpecialtyStart DateEnd Date Arnold Castro DO Jenny W. Brady Nieves [address] [address] PCP - GeneralInternal Medicine01/07/22
--- OUTSIDE RECORDS SUMMARY | 2025-07-10 12:47 | XMS_ITS ---
Author Organization [facility] Address [address] [place] [address] Care Team Providers Care Real Estate Marketing Coordinator Name Role Phone Arnold Castro DO Primary Care Provider Arnold Castro DO Unavailable [phone] Patrick Beard MD Unavailable [phone] Andrey Grullon MD Unavailable [phone] Saúl Davis MD Unavailable [phone] 30 Day Monitoring Program Status:Enrolled (Active) Start date:07/09/2025 Enrollment date:07/09/2025 Enrollment reason:Identified using discharge data NameCher Santamaria LPN(Responsible Staff)Licensed Practical [phone] Continued Care and Services Coordination
--- OUTSIDE RECORDS SUMMARY | 2025-07-10 12:47 | XMS_ITS | Clinical Summary ---
Author Organization [facility] Address [address] [place] [address] Care Team Providers Care Frameman Name Role Phone Patrick Beard MD Unavailable [phone] Arnold Castro MD Primary Care Provider [phone] Allergies No known active allergies Medications MedicationSigDispense QuantityRefillsLast FilledStart DateEnd DateStatus acetaminophen (Tylenol) 500 mg tablet 500 mg.08/31/2023ctive spironolactone (Aldactone) 25 mg tablet Take 25 mg by mouth in the morning.01/24/2024ctive lisinopril 2.5 mg tablet Take 2.5 mg by mouth in the morning.03/27/2024ctive Jardiance 10 mg Take 10 mg by mouth 1 (one) time each day.Active atorvastatin (Lipitor) 80 mg tablet Take 80 mg by mouth in the morning.02/28/2024ctive insulin glargine (Lantus) 100 unit/mL (3 mL) injection pen 8 Units.02/21/2023ctive nitroglycerin (Nitrostat) 0.[address] 0.4 mg under the tongue every 5 (five) minutes if needed.05/07/2023ctive aiffhr-gdhfnxpe-ilbmidz (Creon) 24,000-76,000 -120,000 unit capsule Take 2 capsules by mouth with breakfast, with lunch, and with evening meal. 05/02/2018Active sucralfate (Carafate) 100 mg/mL suspension Take 1 g by mouth every 6 (six) hours.01/07/2022ctive pantoprazole (ProtoNix) 40 mg EC tablet Take 40 mg by mouth before breakfast.01/07/2022ctive metoprolol succinate XL (Toprol-XL) 25 mg 24 hr tablet Take 25 mg by mouth in the morning.01/24/2024ctive lutein 10 mg tablet Take 1 tablet by mouth in the morning.Active omeprazole OTC (PriLOSEC OTC) 20 mg EC tablet Indications:Gastrointestinal ulcerTake 1 tablet (20 mg) by mouth two times daily. Do not crush, chew, or split. 60 tablet 11004/05/2024ctive Active Problems ProblemNoted DateDiagnosed DateAbnormal znjwjvmbxolhojpprdj37/24/2024iabetes mxafeobf98/24/2024cute GI wwxoeshz98/24/2024ostoperative pfuapf9304/04/2024 Barretts kuinruzix11/24/2024losed intertrochanteric fracture of right hip 04/04/2024Fracture of C5 vertebra, bqnlsj3404/04/2024Fracture of cervical spinous venrbbp5604/04/2024nxiety and rojyetjlqn97/24/2024Stomach ulcer04/04/2024 Helicobacter pylori (H. pylori)04/04/2024History of gljcntdpuaecoy91/24/2024 Impaired mobility and activities of daily yoxrut2904/04/2024Iron deficiency 04/04/20244568Zwdvap99/24/2024Mild left ventricular systolic dysfunction (LVSD) 04/04/2024Nonsustained monomorphic ventricular diwgbwfxlsq35/24/2024Osteoporosis 04/04/2024rotein-calorie malnutrition, mild04/04/2024S/P PTCA (percutaneous transluminal coronary angioplasty)04/04/2024losed lumbar vertebral fracture 04/04/2024Left carpal tunnel jafuicqe67/19/2024nemia of chronic disease 01/21/2024SCVD (arteriosclerotic cardiovascular disease)01/21/2024yslipidemia 01/21/2024Elevated d-dimer01/21/20241137Nnskadwdkldite23/12/2024Left radial fracture 01/21/2024neumonia of both lungs due to infectious iqbfhwjp52/12/2024Sepsis without acute organ czcyndfvjdl38/12/2024Traumatic tttkjlahmtuyhc03/12/2024 Closed nondisplaced fracture of fourth cervical vertebra with routine healing 09/09/2023uodenal ulcer09/09/2023H pylori ulcer09/07/2023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 1 diabetes qzgdymoo50/19/2024MI 20.0-20.9, adult 06/23/2023Ischemic myocardial zxzvsdbuwpv83/13/2023 Overview (04/04/2024): Last Assessment & Plan: 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 He will follow up with primary Cardiology next week Arthralgia of hip05/26/2023Recent fracture of hip05/26/2023 Overview (04/04/2024): 04/28 intertroch right hip - ORIF Abnormal stress test05/25/2023iabetes mellitus type II, non insulin dependent 05/25/2023 Overview (04/04/2024): Last Assessment & Plan: On ARB/statin Essential axfghnlrxnbl82/14/2023 Overview (04/04/2024): Last Assessment & Plan: Optimal in office Fractured hip05/25/2023Non-ST elevation (NSTEMI) myocardial /14/2023 Hip fracture due to osteoporosis, aefcscn6005/19/2023Need for immunization against xlwmpqdla91/08/2023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05/02/2023Insulin pump in place 05/02/2023Sepsis due to Escherichia coli without acute organ dysfunction 05/02/2023E coli zygpmxfcu35/11/2023ram negative pyziio7002/19/2023Leukemoid xaypaxnz36/11/0232Wrtmudfijympju99/11/2023Type 1 diabetes tjhqyztn43/08/2023 Sepsis due to urinary tract dawcjjvsv38/08/2023urrent moderate episode of major depressive disorder without prior pispoei82/28/2023Diabetes mellitus secondary to pancreatic tuvnhbzpbhike67/27/2023 Overview (04/04/2024): Last Assessment & Plan: During [...] they have any problems or questions. Manolo Khoi Roche is doing okay. , The patient [...] is not to make any changes in hispump settings. Will work on getting him the dexcom G7. Benign prostatic qkmmumbvicm84/12/2023Mixed agzkbiragixynl12/12/2023eneralized anxiety zknqwdif66/30/2023Diabetes mellitus due to underlying condition 2Perforated wvtnqf6401/02/2022H/O spesjsybhtr04/20/2020 Overview (04/04/2024): During pancreatic surgery Acquired total absence of sfroaqxc02/02/2020Pancreatic fwsjksidarxhd33/23/2019 Two-vessel coronary artery wsmcicf6901/31/2019 Overview (04/04/2024): Last Assessment & Plan: Jun 2023 [facility] presented due to mechanical fall. Incidental troponin elevations Echo EF 40-45% Cath: two-vessel disease; ef 40% anterior hypokinesis Elective PCI: Jul LAD: unsuccessful attempt - NETWORKING SPECIALIST oDiag PCI/Mark 3.5 x 18mm Daily activity < 4 METs IPMN (intraductal papillary mucinous neoplasm)06/23/2018 Overview (04/04/2024): Added automatically from request for surgery [id number] Renwva9503/23/2018 Overview (04/04/2024): Black and milds occasional Immunizations ImmunizationAdministration DatesNext DueInfluenza, High Dose Seasonal, Preservative Free04/29/2022,04/29/2021,03/03/2017Influenza, Seasonal, Quadrivalent, Rifmdviljk05/08/2023Influenza, trivalent, krnpcfpgae38/14/2020, 04/03/2019,2018Moderna 12 YR UP Vaccine BiValent Ptsuqwm5005/18/2023, 08/22/2020,1Pneumococcal Conjugate PCV 13012/26/2019Pneumococcal Polysaccharide VLB900812/25/2015RSV, Adult, Thjmssicxms94/07/2023Td (adult), 5 Lf tetanus toxoid, preservative free, qicobmax89/07/3202Bjbe67/07/2015Zoster, Qposualfnck52/07/2023,05/02/2021Zoster, live05/05/2021 Social History Tobacco UseTypesPacks/DayYears UsedDateSmoking Tobacco: FormerCigarettes Smokeless Tobacco: Former Tobacco Cessation:Counseling Given: Not Answered Alcohol UseStandard Drinks/WeekCommentsYes0 (1 standard drink = 0.6 oz pure alcohol)occHumiliation, Afraid, Rape, and Kick questionnaireAnswerDate Recorded Within the last year, have you been afraid of your partner or ex-partner?No 04/05/2024Within the last year, have you been humiliated or emotionally abused in other ways by your partner or ex-partner?No04/05/2024Within the last year, have you been kicked, hit, slapped, or otherwise physically hurt by your partner or ex-partner?No04/05/2024Within the last year, have you been raped or forced to have any kind of sexual activity by your partner or ex-partner?No04/05/2024HQ-2 AnswerDate RecordedPatient Health Questionnaire-2 Djdik615Sex and Gender InformationValueDate RecordedSex Assigned at GrcmbYsml10/25/2024 10:47 AM EDT Legal BiwSdct5502/17/2024 2:49 PM EDTGender IwkpbakdKyxn27/25/2024 10:47 AM EDT Sexual OrientationDon't know04/05/2024 10:47 AM EDT Last Filed Vital Signs Vital SignReadingTime TakenCommentsBlood Vwgcxila704/61004/05/2024 11:02 AM EDT Kecij761004/05/2024 11:02 AM EDTTemperature--Respiratory Rate--Oxygen Saturation-- Inhaled Oxygen Concentration--Usunkh98.5 kg (146 lb 9.6 oz)04/05/2024 11:02 AM FSWExadus853.3 cm (5' 11 )04/05/2024 11:02 AM EDTBody Mass Index20.45004/05/2024 11:02 AM EDT Plan of Treatment Health MaintenanceDue DateLast DoneCommentsMedicare Annual Wellness (AWV) 1937Diabetes: Retinopathy Wcwokjzov71/12/1947Depression Screening 1949Fall Risk Gvgkmivgm43/12/2002Meningococcal Vaccine (2 - Risk 2-dose series)Meningococcal B Vaccine (3 of 4 - Increased Risk Bexsero 3-dose series)/12/2019, 08/18/2018Diabetes: Hemoglobin A1C , 02/18/2023, 02/16/2023OVID-19 Vaccine ( season)/11/2023, 05/18/2023, 05/18/2023, Additional history exists Influenza Vaccine (#1)510/01/2024, 05/19/2023, 04/29/2022, Additional history existsDiabetes: Urine Protein Yxwrtlkbs41/17/886233/dult Tetanus 809/01/2018, 03/18/2015HIB CwlrjcugIkpkhwlea65/07/2019Pneumococcal Vaccine: 50+ GrvwkAnixgwiio03/16/2020, 09/15/2019, 08/18/2018, Additional history existsZoster MckvdbhoLozswcikw94/07/2023, 05/05/2021, 05/02/2021HPV VaccinesAged OutNo longer eligible based on patient's age to complete this topic IPV VaccinesAged OutNo longer eligible based on patient's age to complete this topicRotavirus VaccinesAged OutNo longer eligible based on patient's age to complete this topic Insurance Care Teams Team MemberRelationshipSpecialtyStart DateEnd Date Arnold Castro MD [address] [place] [address] PCP - GeneralInternal Rfkhraji75/24/24 Patrick Beard MD [address] [facility] [address] [place] [address] Gastroenterology04/05/24
--- OUTSIDE RECORDS SUMMARY | 2025-07-10 12:47 | XMS_ITS | Patient Health Record ---
Author Organization [facility] Address [address] [place] [address] Care Team Providers Care In Store Marketer Name Role Phone El Johnson Primary Care Provider Myriam Byrd Unavailable [phone] Reason For Referral No Information Medications Medication SIG (Take, Route, Frequency, Duration) Notes Start Date End Date Status Naftin 1% gel 1 eliane applied topica lly to affected areas QAM; Duration: 30 day(s) 10/01/2011ctiveeconazole topical 1% cream1 eliane applied topically once daily; Duration: 30 day(s)10/02/2011ctiveAluvea 40% cream1 eliane applied topically to affected area QHS; Duration: 30 day(s)10/01/2011ctive Social History Social History Additional DetailsCategorySocial InfoOptionsDetailsGeneralOccupationRetired AlcoholnoRecreational drug usenoExerciseyesSunscreen usenoAt least 1 blistering sunburnNoUtilized a tanning bedNoBody Piercings/TattoosNoMarriedYes Problems Problem Type SNOMED Code ICD Code Onset Dates Problem Status W/U Status Risk Notes Problem Tinea pedis (0317192) Tinea pedis (110.4) ActiveconfirmedProblemOnychomycosis (762320529)Onychomycosis (110.1)Active confirmed Plan Of Treatment No Information Insurance Providers Payer Name Payer Address Payer Phone Subscriber Number Group Number Insured Name Patient Relationship to Insured Coverage Start Date Coverage End Date [place] [address] [address] [place] [address] [phone] [id number] Bebo Roche - patient is the insuredInactive ins do not addAmerican National Ins [address] [place], [place] [id number], SamZeke - patient is the insured Medical (General) History Medical History History ICD Code Denies history of skin cancer
--- OUTSIDE RECORDS SUMMARY | 2025-07-10 12:47 | XMS_ITS | Clinical Summary ---
Author Organization [facility] Address [id number] [place] [address] Care Team Providers Care Motion Picture Equipment Machinist Name Role Phone Unavailable Primary Care Provider Unavailabl e Medications MedicationSigDispense QuantityRefillsLast FilledStart DateEnd DateStatus clopidogreL (PLAVIX) 75 mg tablet Take 1 tablet (75 mg total) by mouth in the morning.Active rhnkmc-yveeojdk-uxmhiew (CREON) 24,000-76,000 -120,000 unit capsule,delayed release(DR/EC) Take 2 capsules (48,000 units of lipase total) by mouth in the morning and 2 capsules (48,000 unitsof lipase total) at noon and 2 capsules (48,000 units of lipase total) in the evening. Take with meals.Active nitroglycerin (NITROSTAT) 0.[address] 1 tablet (0.4 mg total) under the tongue every 5 (five) minutes as needed for chest pain.Active tamsulosin (FLOMAX) 0.4 mg capsule Take 1 capsule (0.4 mg total) by mouth in the morning.Active atorvastatin (LIPITOR) 80 mg tablet Take 1 tablet (80 mg total) by mouth in the morning.Active insulin pump cart,cont inf,BT (OMNIPOD DASH PODS, GEN 4,) cartridge Inject under the skin. Basal: 0.5 u/hr Carb: 0.5 u per 10 carbs Correction: unclearActive PARoxetine (PAXIL) 30 mg tablet Take 1 tablet (30 mg total) by mouth every morning.Active sacubitriL-valsartan (ENTRESTO) 24-26 mg tablet Take 1 tablet by mouth in the morning and 1 tablet before bedtime. 60 tablet ctive metoprolol succinate XL (TOPROL XL) 25 mg 24 hr tablet Take 0.5 tablets (12.5 mg total) by mouth in the morning and 0.5 tablets (12.5 mg total) before bedtime. 30 tablet ctive spironolactone (ALDACTONE) 25 mg tablet Take 1 tablet (25 mg total) by mouth in the morning. 30 tablet ctive Active Problems ProblemNoted DateDiagnosed DateNSTEMI (non-ST elevated myocardial infarction) 01/21/2024Left radial qdqeswun00/12/2024neumonia of both lungs due to infectious sfijqdfz41/12/2024Sepsis without acute organ kpwyeymgkzj40/12/2024 Traumatic sdgrlvshzwdavz34/12/2024Type 1 diabetes /12/2024nemia of chronic qqtcoat0401/21/2024SCVD (arteriosclerotic cardiovascular disease) 01/21/2024Elevated d-dimer01/21/20248205Hzkiddbpigykll57/12/2024Essential qglbzoazyoup55/12/9490Vgzcqcibxprq35/12/2024ancreatic ovataqoymsvcv30/12/2024 Immunizations No known immunizations Family History RelationNameStatusCommentsBrotherDeceasedcancerFatherDeceasedold ageMother (Age 99)old ageSisterDeceasedacute leukemia Social History Tobacco UseTypesPacks/DayYears UsedDateSmoking Tobacco: GkymlwGfvybwnymh1Sgnf: 04/11/2023Smokeless Tobacco: Never Tobacco Cessation:Counseling Given: No Alcohol UseStandard Drinks/HxzzFbstrmvqVqc45 (1 standard drink = 0.6 oz pure alcohol)[facility] UtilitiesAnswerDate RecordedIn the past 12 months has the [employer], [employer], oil, or water [employer] threatened to shut off services in your home?No 01/21/2024Social Connection and Isolation PanelAnswerDate RecordedIn a typical week, how many times do you talk on the phone with family, friends, or neighbors?More than three times a week01/21/2024How often do you get together with friends or relatives?More than three times a week01/21/2024How often do you attend jewish or sikhism services?More than 4 times per year01/21/2024o you belong to any clubs or organizations such as jewish groups, unions, fraternal or athletic groups, or school groups?Yes01/21/2024How often do you attend meetings of the clubs or organizations you belong to?More than 4 times per year01/21/2024 Are you , , , , never , or living with a partner?Kmyfopo9501/21/2024UDIT-CAnswerDate RecordedQ1: How often do you have a drink containing alcohol?4 or more times a week01/21/2024Q2: How many drinks containing alcohol do you have on a typical day when you are drinking?1 or 2 01/21/2024Q3: How often do you have six or more drinks on one occasion?Never 01/21/2024Overall Financial Resource Strain (CARDIA)AnswerDate RecordedHow hard is it for you to pay for the very basics like food, housing, medical care, and heating?Not hard at all01/21/2024HQ-2AnswerDate RecordedTotal Hxgcb066 [place] [employer] - Occupational Stress Questionnaire AnswerDate RecordedDo you feel stress - tense, restless, nervous, or anxious, or unable to sleep at night because yourmind is troubled all the time - these days? Only a smeagv6401/21/2024Exercise Vital SignAnswerDate RecordedOn average, how many days per week do you engage in moderate to strenuous exercise (like a brisk walk)?7 days01/21/2024On average, how many minutes do you engage in exercise at this level?60 min01/21/2024RAPARE - TransportationAnswerDate RecordedIn the past 12 months, has lack of transportation kept you from medical appointments or from getting medications?No01/21/2024In the past 12 months, has lack of transportation kept you from meetings, work, or from getting things needed for daily living?No01/21/2024Housing InstabilityAnswerDate RecordedAre you worried or concerned that in the next two months you may not have stable housing that you own, rent or stay in as a part of a household?No01/21/2024hildcareAnswer Date RecordedDo problems getting child welfare director make it difficult for you to work or study?No01/21/2024EmploymentAnswerDate RecordedDo you need help finding a local career center and/or a training program?No01/21/2024Hunger ScreeningAnswerDate RecordedWithin the past 12 months we worried whether our food would run out before we got money to buy more.Never True01/21/2024Within the past 12 months the food we bought just didn't last and we didn't have money to get more.Never True01/21/2024urpose - LifeAnswerDate RecordedI have a purpose and direction in my life.Agree01/21/2024Sex and Gender InformationValueDate RecordedSex Assigned at BirthNot on fileLegal ZjsQflp2008/31/2023 10:06 AM ESTGender IdentityMale 01/21/2024 11:37 AM EDTSexual MxasjpwhhweWaqfeoty12/12/2024 11:37 AM EDT Last Filed Vital Signs Vital SignReadingTime TakenCommentsBlood Yqgeqzjy936/6907 3:00 PM EDT Dizvk6746/15/2024 3:00 PM NGGTbtekleeizx87.3 ??C (97.4 ??F)01/24/2024 3:00 PM EDTRespiratory Jilg402701/24/2024 3:00 PM EDTOxygen Jtlhfkanka50%01/24/2024 3:00 PM EDTInhaled Oxygen Concentration--Kvwhbx16.7 kg (149 lb 4 oz)01/24/2024 1:25 AM OXYHhvkqz179.3 cm (5' 11 )01/21/2024 10:43 AM EDTBody Mass Index20.82 01/21/2024 10:43 AM EDT Plan of Treatment Health MaintenanceDue DateLast DoneCommentsFall Risk Exchqvlow53/12/2002 Depression Kwnxkolnd21Tobacco Vkjscxdka90 COVID-19 Vaccine ( season)5107/18/2022, 05/26/2022, 08/22/2020, Additional history existsInfluenza Kqcezrb28/02/2023, 04/29/2022, 04/29/2021, Additional history existsDTaP,Tdap and Td Vaccines (3 - Td or Tdap)8003/18/2018, 03/18/2015RSV ( or age 60+ yrs) Iouqalioo66/07/2023Zoster (Shingles) LbipfgeFaaxrpdkt09/07/2023, 05/05/2021, 05/02/2021 Medical Devices Not on file Insurance Advance Directives * Full Code (Latest Code Status on File) Date ActivatedDate InactivatedComments01/21/2024 10:15 AM01/24/2024 8:16 PM
--- OUTSIDE RECORDS SUMMARY | 2025-07-10 12:47 | XMS_ITS | Clinical Summary ---
Author Organization [facility] Address [address] [place] [address] Phone Care Team Providers Care Beam Warper Name Role Phone Arnold Castro Primary Care Provider Allergies No known active allergies Medications MedicationSigDispense QuantityRefillsLast FilledStart DateEnd DateStatus insulin aspart (NovoLOG U-100 Insulin aspart) 100 unit/mL injection Inject 100 Units under the skin 3 times a day before meals. Take as directed per insulin instructions.Active insulin glargine (Lantus U-100 Insulin) 100 unit/mL injection Inject 24 Units under the skin once daily at bedtime. Take as directed per insulin instructions.Active lipase/protease/amylase (CREON ORAL) Take 24,000 mg by mouth 3 times a day.Active PARoxetine (Paxil) 30 mg tablet Take 1 tablet (30 mg) by mouth once daily in the morning.Active aspirin 81 mg EC tablet Take 1 tablet (81 mg) by mouth once daily.Active atorvastatin (Lipitor) 80 mg tablet Take 1 tablet (80 mg) by mouth once daily.Active nitroglycerin (Nitrostat) 0.4 mg SL tablet Indications:ASHD (arteriosclerotic heart disease)Place 1 tablet (0.4 mg) under the tongue every 5 minutes if needed for chest pain. May repeat dose every 5 minutes for up to 3 doses total. 100 tablet ctive multivit-min/ferrous fumarate (MULTI VITAMIN ORAL) Take 1 tablet by mouth once daily.Active cetirizine (ZyrTEC) 10 mg tablet Take 1 tablet (10 mg) by mouth once daily.Active lutein 10 mg tablet Take 1 tablet by mouth once daily.Active cholecalciferol (Vitamin D3) 25 MCG (1000 UT) capsule Take 1 capsule (25 mcg) by mouth once daily.Active furosemide (Lasix) 20 mg tablet Indications:Cardiomyopathy, ischemicTake 1 tablet (20 mg) by mouth once daily. 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 He will follow up with primary Cardiology next week Assessment & Plan (06/23/2023 2:37 PM EST): April 2023 TTE LVEF 40 to 45% LVH mild MR trace BMI 20.0-20.9, adult06/23/2023Mixed tebvjdrqqfxsbr51/13/2023bnormal stress test 05/25/2023SHD (arteriosclerotic heart disease)05/25/2023 Assessment & Plan (08/16/2023 2:37 PM EST): Jun 2023 [facility] presented due to mechanical fall. 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 PCI/Elizabeth 3.5 x 18mm Daily activity < 4 METs Assessment & Plan (06/23/2023 2:36 PM EST): Apr 2023 cardiac cath: LAD 100% pD1 80% CX 50% Plan: PCI after recovers from hip repair NSTEMI (non-ST elevated myocardial infarction)05/25/2023Fractured hip05/25/2023 Essential cyyqlfxfnkrf66/14/2023 Assessment & Plan (06/23/2023 2:37 PM EST): Optimal in office Diabetes mellitus type II, non insulin ftkewnpxc63/14/2023 Assessment & Plan (06/23/2023 2:38 PM EST): On ARB/statin Family History Medical HistoryRelationNameCommentsNo Known ProblemsBrotherNo Known Problems FatherNo Known ProblemsMotherAcute lymphoblastic leukemiaSisterRelationName StatusCommentsBrotherFatherMotherSister Social History Tobacco UseTypesPacks/DayYears UsedDateSmoking Tobacco: FormerCigarettesQuit: 08/09/2022Smokeless Tobacco: Never Tobacco Cessation:Counseling Given: Not Answered Alcohol UseStandard Drinks/WeekCommentsYes7 (1 standard drink = 0.6 oz pure alcohol)Sex and Gender InformationValueDate RecordedSex Assigned at BirthNot on fileLegal MfyRxdg85/19/2023 11:32 AM EDTGender IdentityNot on fileSexual OrientationNot on file Last Filed Vital Signs Vital SignReadingTime TakenCommentsBlood Wcotbijk701/80008/16/2023 2:07 PM EST Oywwu5625/05/2024 2:07 PM ESTTemperature--Respiratory Rate--Oxygen Saturation-- Inhaled Oxygen Concentration--Awfwzx40.5 kg (140 lb)08/16/2023 2:07 PM ESTHeight 177.8 cm (5' 10 )08/16/2023 2:07 PM ESTBody Mass Index20.0908/16/2023 2:07 PM EST Plan of Treatment Health MaintenanceDue DateLast DoneCommentsDiabetes: Celiac Disease Screening 1935Diabetes: Urine Protein Pjqgeetpm1935Lipid Panel1935 Medicare Annual Wellness Visit (AWV)1935TSH Level1937Vitamin B-12 1935Diabetes: Retinopathy Jeeeowmiy63/12/1947Meningococcal Vaccine (2 - Risk 2-dose series)/12/2019Diabetes: Hemoglobin A1C04/04/2022 01/02/2022OVID-19 Vaccine ( season)/01/2023, 05/26/2022, 08/22/2020, Additional history existsInfluenza Vaccine (#1)/02/2023, 04/29/2022, 04/29/2021, Additional history existsDTaP/Tdap/Td Vaccines (3 - Td or Tdap)8003/18/2018, 03/18/2015HIB GrhiedfgMfanvnwrg07/07/2019 Pneumococcal ZrhiuqdAekhgelbs95/16/2020, 09/15/2019, 08/18/2018, Additional history existsRSV High Risk: (Elderly (60+) or Population)Completed 05/18/2023Zoster ZqjcokuuXtkqezdac79/07/2023, 05/05/2021, 05/02/2021HPV Vaccines Aged OutNo longer eligible based on patient's age to complete this topic Hepatitis A VaccinesAged OutNo longer eligible based on patient's age to complete this topicHepatitis B VaccinesAged OutNo longer eligible based on patient's age to complete this topicIPV VaccinesAged OutNo longer eligible based on patient's age to complete this topicRotavirus VaccinesAged OutNo longer eligible based on patient's age to complete this topic Insurance Care Teams Team MemberRelationshipSpecialtyStart DateEnd Date Arnold Castro DO [address] [place] [address] PCP - GeneralInternal Vgzkqedx01/7/23
--- OUTSIDE RECORDS SUMMARY | 2025-07-10 12:47 | XMS_ITS | Encounter Summary ---
Author Organization [facility] Address [address] [place] [address] Care Team Providers Care Gas Utility Worker Name Role Phone Arnold Castro DO Primary Care Provider Arnold Castro DO Unavailable [phone] Patrick Beard MD Unavailable [phone] Andrey Grullon MD Unavailable Saúl Davis MD Unavailable [phone] Encounter Details DateTypeDepartmentCare Team (Latest Contact Info)Rsvbjvlqhyf04/14/2025Clinisync Result Encounter [facility] External Department Unsolicited Provider, Generic External Data Social History Tobacco UseTypesPacks/DayYears UsedDateSmoking Tobacco: Every [...] on one occasion?Never01/20/2023HQ-2AnswerDate Recorded Patient Health Questionnaire-2 Loyaa964Sex and Gender InformationValue Date RecordedSex Assigned at BirthNot on fileLegal IkqBqnw2309/23/2022 6:39 PM EDT Gender IdentityNot on fileSexual OrientationNot on filedocumented as of this encounter Plan of Treatment DateTypeDepartmentCare Team (Latest Contact Info)Gwozjistyjk65/02/2026 2:00 PM ESTOffice Visit [facility] [address] [place] [phone] Marga Robledo, VEST BUSHELER [address] [place] [address] documented as of this encounter Procedures Procedure NamePriorityDate/TimeAssociated DiagnosisCommentsBLOOD CULTURE 2 Qwpseoi5906/24/2025 5:54 AM EST BLOOD CULTURE 1Fsounpz09/14/2025 5:46 AM EST documented in this encounter Results * BLOOD CULTURE 2 (06/24/2025 5:54 AM EST)ComponentValueRef RangeTest Method Analysis TimePerformed AtPathologist SignatureBLOOD CULTURE 2 ??Blood Culture 2 NG5D NO GROWTH AT 5 DAYS.^NO GROWTH AT 5 DAYS. TBHSpecimen (Source)Anatomical Location / LateralityCollection Method / Volume Collection TimeReceived Time06/24/2025 5:54 AM EST06/24/2025 6:18 AM EST Narrative [facility] - 06/29/2025 2:42 PM EST Authorizing ProviderResult TypeResult StatusGeneric External Data ProviderLAB BLOOD ORDERABLESFinal ResultPerforming OrganizationAddressCity/State/ZIP Code Phone Number [facility] TB * BLOOD CULTURE 1 (06/24/2025 5:46 AM EST)ComponentValueRef RangeTest Method Analysis TimePerformed AtPathologist SignatureBLOOD CULTURE 1 ??Blood Culture 1 NG5D NO GROWTH AT 5 DAYS.^NO GROWTH AT 5 DAYS. TBHSpecimen (Source)Anatomical Location / LateralityCollection Method / Volume Collection TimeReceived Time06/24/2025 5:46 AM EST06/24/2025 6:17 AM EST Narrative [facility] - 06/29/2025 2:41 PM EST Authorizing ProviderResult TypeResult StatusGeneric External Data ProviderLAB BLOOD ORDERABLESFinal ResultPerforming OrganizationAddressCity/State/ZIP Code Phone Number [facility] documented in this encounter Visit Diagnoses Not on filedocumented in this encounter Additional Health Concerns AssessmentNoted TimePHQ-9 Depression Total Score: 15002/05/2023 7:10 AM EDT documented as of this encounter Care Teams Team MemberRelationshipSpecialtyStart DateEnd Date Arnold Castro DO [address] [place] [address] PCP - GeneralInternal Medicine01/08/23 Arnold Castro DO [address] [place] [address] PCP - ACO Reach09/10/23 Patrick Beard MD [address] [facility] [address] [place] [address] Referring UwccaionqXdbsvxrwpbqbjtcf26/7/24 Andrey Grullon MD [address] [place] [address] Referring HfduylapwUohixbdne24/7/24 Saúl Davis MD [address] [place] [address] [address] [place] [address] Referring KuygcqpfoRwujbfwvni18/7/24documented as of this encounter
--- OUTSIDE RECORDS SUMMARY | 2025-07-10 12:47 | XMS_ITS | Encounter Summary ---
Author Organization [facility] Address [address] [place] [address] Care Team Providers Care Burlesque Dancer Name Role Phone Unavailable Primary Care Provider Unavailabl e Encounter Details DateTypeDepartmentCare Team (Latest Contact Info)Plnaeiwpwwg58/16/2025Results Only Administration [address] [place] [address] Maribel Romero MD [address] [place] [id number] Social History Tobacco UseTypesPacks/DayYears UsedDateSmoking Tobacco: Never [facility]essed[facility] UtilitiesAnswerDate RecordedIn the past 12 months has [...] InformationValueDate RecordedSex Assigned at BirthNot on fileLegal ZqsTwkr31/22/2023 9:47 AM ESTGender IdentityNot on file Sexual OrientationNot on filedocumented as of this encounter Procedure Notes * Marcie Hess MD - 06/26/2025 9:36 AM ESTAssociated Order(s): VASCULAR STUDIES REPORT Upper Extremities Venous Duplex [address] [place] [address] Status:Finalized Demographics Patient name: RANCHO MARADIAGA Gender: Male Date of : 1935 Age: 89 year(s) Procedure Information Procedure date: 06/26/2025 9:36 AM Procedure type: Vascular Proc. sub type: Veins: Upper Extremities Veins, LIMITED DUPLEX VEIN SCAN UE. Accession no: [id number] Patient status: Routine Study location: Portable Technical quality: Adequate visualization Procedure Staff Referring Physician: WONG RIVAS MD Building Inspector: Emi Ribera RDMS,RVT Interpreting physician: DEIDRE NGUYEN MD Indications Edema. Risk Factors Additional comments: No significant history UE Veins Findings Left Location Visualized Compression Thrombosis Signal IJV Yes Yes None Phasic SCV Yes Yes None Phasic Axillary Yes Yes None Phasic Mid Axillary Yes Yes None Dist Axillary Yes Yes None Prox Brachial Yes Yes None Mid Brachial Yes Yes None Phasic Dist Brachial Yes Yes None Right Left Location Visualized Compression Thrombosis Visualized Compression Thrombosis Basilic at Prox UA Yes Yes None Basilic at Mid UA Yes Yes None Basilic at Dist UA Yes Yes None Basilic at AF Yes Yes None Cephalic at Prox UA Yes Yes None Cephalic at Mid UA Yes Yes None Cephalic at Dist UA Yes Yes None Cephalic at AF Yes Yes None Physician Impressions Right: RIGHT. Patent subclavian vein Left: LEFT: There is no evidence of deep vein thrombosis/ superficial thrombophlebitis in the left upper extremity and internal jugular vein. Physician Conclusions Summary: Simultaneous real time imaging [...] left upper extremity and internal jugular vein. documented in this encounter Plan of Treatment DateTypeDepartmentCare Team (Latest Contact Info)Ebmrzmzhdcl51/21/2026 11:00 AM ESTOffice Visit [facility] [address] [place] [address] Jacqueline Baptiste MD [address] [place] [address] documented as of this encounter Procedures Procedure NamePriorityDate/TimeAssociated DiagnosisCommentsVASCULAR STUDIES CBEQYN0006/26/2025 9:36 AM EST documented in this encounter Results * VASCULAR STUDIES REPORT (06/26/2025 9:36 AM EST)Anatomical RegionLaterality ModalityOtherSpecimen (Source)Anatomical Location / LateralityCollection Method / VolumeCollection TimeReceived Time06/26/2025 9:36 AM EST Narrative Procedure Note Marcie Hess MD - 06/26/2025 9:36 AM EST Upper Extremities Venous Duplex [address] [place] [address] Status:Finalized Demographics Patient name: RANCHO MARADIAGA [facility]: [id number] Gender: Male Date of : 1935 Age: 89 year(s) Procedure Information Procedure date: 06/26/2025 9:36 AM Procedure type: Vascular Proc. sub type: Veins: Upper Extremities Veins, LIMITED DUPLEX VEINSCAN UE. Accession no: [id number] Patient status: Routine Study location: Portable Technical quality: Adequate visualization Procedure Staff Referring Physician: WONG RIVAS MD Building Inspector: Emi Ribera RDMS,RVT Interpreting physician: DEIDRE NGUYEN MD Indications Edema. Risk Factors Additional comments: No significant history UE Veins Findings Left Location Visualized CompressionThrombosis Signal IJV Yes YesNone Phasic SCV Yes YesNone Phasic Axillary Yes YesNone Phasic Mid Axillary Yes YesNone Dist Axillary Yes YesNone Prox Brachial Yes YesNone Mid Brachial Yes YesNone Phasic Dist Brachial Yes YesNone RightLeft Location Visualized CompressionThrombosis Visualized Compression Thrombosis Basilic at Prox UAYes Yes None Basilic at Mid UAYes Yes None Basilic at Dist UAYes Yes None Basilic at AFYes Yes None Cephalic at Prox UAYes Yes None Cephalic at Mid UAYes Yes None Cephalic at Dist UAYes Yes None Cephalic at AFYes Yes None Physician Impressions Right: RIGHT. Patent subclavian vein Left: LEFT: There is no evidence of deep vein thrombosis/ superficialthrombophlebitis in the left upper extremity and internal jugular vein. Physician Conclusions Summary: Simultaneous real time imaging of venous blood flow using both pulsed andcolor Doppler, as well as B-mode evaluation of the venous system with compression techniques, was used to evaluate the deepveins of the left upper extremity and internal jugular vein. The study demonstrates the following finding LEFT: There is no evidence of deep vein thrombosis/ superficialthrombophlebitis in the left upper extremity and internal jugular vein. Authorizing ProviderResult TypeResult StatusMaribel ESPARZA [facility] Final Result documented in this encounter Visit Diagnoses Not on filedocumented in this encounter
--- OUTSIDE RECORDS SUMMARY | 2025-07-10 12:47 | XMS_ITS | Clinical Summary ---
Author Organization [facility] Address [address] [place], [place] [id number] Care Team Providers Care Junior Administrative Assistant Name Role Phone Arnold Castro DO Primary Care Provider Anatoly Anne APRN.ANESTHESIOLOGY FELLOW Unavailable [phone] Allergies No known active allergies Medications MedicationSigDispense QuantityRefillsLast FilledStart DateEnd DateStatus folic acid/multivit-min/lutein (CENTRUM SILVER ORAL) Take by mouth once daily.Active aspirin, enteric coated (ASPIRIN, ENTERIC COATED) 81 mg EC tablet Take 81 mg by mouth once daily.Active cholecalciferol (VITAMIN D-3) 2,000 unit tablet Take 2,000 Units by mouth once daily.Active lutein-zeaxanthin 25-5 mg cap Take by mouth once daily.Active xiyrtt-lopbotiv-kmqztvg (CREON) 24,000-76,000 -120,000 unit cpDR Take 2 capsules by mouth three times daily with meals. 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 1.2 mL /ctive cetirizine (ZYRTEC) 10 mg tablet Take 10 mg by mouth once daily.06/19/2025Discontinued Lactobac no.41/Bifidobact no.7 (PROBIOTIC-10 ORAL) Take by mouth once daily.06/19/2025Discontinued Omeprazole Magnesium 20 mg tablet Take 20 mg by mouth./03/2025Discontinued lisinopril 2.5 mg tablet Take 2.5 mg by mouth.Discontinued glucagon (GVOKE HYPOPEN 2-PACK) 1 mg/0.2 mL auto-injector Inject 1 mg subcutaneously as needed. 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 15 mL Discontinued Active Problems ProblemNoted DateDiagnosed DateIPMN (intraductal papillary mucinous neoplasm) 06/23/2018 Overview (06/23/2018): Added automatically from request for surgery [id number] Encounters DateTypeDepartmentCare BfzmDduhdxkkxdu66/26/2025Refill Endocrinology [address] [place], [place] [phone] Jessi Comer, AAMDA.ANESTHESIOLOGY FELLOW Med Change Dfjnbrp0107/04/2025Telephone Endocrinology [address] [place] [phone] Jessi Comer APRN.ANESTHESIOLOGY FELLOW Forms ([facility]- chart notes as well as Cpeptide and fasting glucose) 06/23/2025Telephone [facility] Provider Adult [address] [place] [address] Micah Wolfe MD Hospital Ucftkbsrl29/09/2025 12:15 PM ESTOffice Visit Endocrinology [address] [place], [place] [phone] Jessi Comer, AMADA.ANESTHESIOLOGY FELLOW 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, with long-term current use of insulin(HCC) (Primary Dx); 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ANESTHESIOLOGY FELLOW Patient Update ([facility]- Medication update and glucose readings/)05/03/20259173Wickub71/23/2025Telephone Endocrinology [address] [place] [address] Jessi Comer, MERCHANDISE CLERK.ANESTHESIOLOGY FELLOW Patient Question (Glucose readings)04/23/2025Telephone Endocrinology [address] [place] [phone] Yvonne Cedillo, MERCHANDISE CLERK.ANESTHESIOLOGY FELLOW Patient Update; Crib Attendant - Other04/10/2025Results Follow-Up Endocrinology [address] [place] [address] Jessi Comer, AMADA.ANESTHESIOLOGY FELLOW from Last 3 Months Social History Tobacco UseTypesPacks/DayYears UsedDateSmoking Tobacco: VrsozsGucsgrofre7Pkel: 03/15/2018Smokeless Tobacco: Never Tobacco Cessation:Counseling Given: Not Answered Alcohol UseStandard Drinks/WeekCommentsYes0 (1 standard drink = 0.6 oz pure alcohol)social useArea Deprivation IndexAnswerDate RecordedNational Score (1- 100), lower number is lower ifjn620807/06/2024State Score (1-10), lower number is lower klhj5304Data from: https://www.neighborhoodatlas.[facility].edu/. Last address used for bwybxsgflym[address] [facility]07/06/2024Sex and Gender InformationValueDate RecordedSex Assigned at BirthNot on fileLegal MzyElhz1303/30/2018 9:09 AM EDT Gender IdentityNot on fileSexual OrientationNot on fileTravel HistoryTravel StartTravel EqyGvjbrdp93 Last Filed Vital Signs Vital SignReadingTime TakenCommentsBlood Fbpfhhmb17/4012 1:06 PM EST Vpnfp321206/19/2025 12:23 PM WBVNhlpslksmnv84.9 ??C (98.4 ??F)06/14/2018 9:20 AM ESTRespiratory Rate--Oxygen Rgllbugknq82%10/26/2024 12:09 PM EDTInhaled Oxygen Concentration--Hmuyck14.4 kg (135 lb 5.8 oz)06/19/2025 12:23 PM XOOWqowng376.8 cm (5' 10 )10/26/2024 12:09 PM EDTBody Mass Index19.42010/26/2024 12:09 PM EDT Plan of Treatment DateTypeDepartmentCare Team (Latest Contact Info)Vcbjnqerymz05/13/2026 12:15 PM ESTOffice Visit Endocrinology [address] [facility] [place] [address] Jessi Comer, AMADA.ANESTHESIOLOGY FELLOW [address] [facility] [place] [address] follow up ok per Dylidsy3907/24/2025 1:00 PM ESTNurse Visit Endocrinology [address] [facility] [place] [address] [place] [address] [place], [place] [id number] Follow UpHealth MaintenanceDue DateLast DoneCommentsDiabetic Foot Exam1947 Dilated Retinal Exam1947nxiety Abodzescv05/12/1955Depression Screening 1955Medicare Annual Wellness Visit03/12/2002Advance Directive Discussion 5Covid-19 Vaccine ( season)/11/2023, 05/18/2023, 05/26/2022, Additional history ofapjyZuC4V50, 04/09/2025, 10/26/2024, Additional history existsLDL Dugrhbrrolv77, 09/25/2024Urine Albumin:Creatinine Ratio, 09/25/2024 DTaP,Tdap,Td Vaccine (4 - Td or Tdap), 03/18/2018, 03/18/2015RSV HrvfsqlHzwqenlgg86/07/2023Shingrix ThsazhgLantkohkf17/07/2023, 05/05/2021, 1Pneumococcal Vaccine: 50+Ngqnzjasa91/07/2025, 12/26/2019, 09/15/2019, Additional history existsInfluenza OypfxhtDchaukqny40/14/2025, 04/17/2024, 05/19/2023, Additional history exists Procedures Procedure NamePriorityDate/TimeAssociated DiagnosisCommentsEXTERNAL LAB 05/17/2025 1:26 PM EST HEMOGLOBIN D1OEgwwsrp07/29/2025 9:56 AM EDT 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, with long-term current use of insulin(HCC) ALBUMIN/CREATININE RATIO, IAUUFCbwtpzg00/17/2025 3:34 PM EDT 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, with long-term current use of insulin([facility]) LIPID PANEL, BBAPLTTEXBWrilndr39/17/2025 3:20 PM EDT 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, with long-term current use of insulin([facility]) from Last 3 Months or Most Recently Relevant to Health Maintenance Results * EXTERNAL LAB (05/17/2025 1:26 PM EST) Narrative Authorizing ProviderResult TypeResult StatusExternal Provider PA-CLABORATORY Final Result * (ABNORMAL) HEMOGLOBIN A1C (04/09/2025 9:56 AM EDT)ComponentValueRef RangeTest MethodAnalysis TimePerformed AtPathologist SignatureHemoglobin A1C12.8(H)4.3 - 5.6 %04/11/2025 6:29 AM EDTCPREMIER HEALTH ATR[facility]UM [facility] LABComment:[place]ai Diabetes Association guidelines indicate that patients with HgbA1c in the range 5.7-6.4% are at increased risk for development of diabetes, and intervention by lifestyle modification may be beneficial. HgbA1c greater or equal to 6.5% is considered diagnostic of diabetes.Estimated Average Glucose 321mg/dL04/11/2025 6:29 AM [facility] LABComment:eAG: (Estimated average glucose) is a calculated value from HgbA1c and is customer service representative teacher of the average blood glucose level in the last 2-3 month period.Specimen (Source)Anatomical Location / LateralityCollection Method / VolumeCollection TimeReceived TimeBloodBLOOD SPECIMEN / UnknownVenipuncture / Rljpyal3504/09/2025 9:56 AM EDT04/09/2025 9:57 AM EDT Narrative Authorizing ProviderResult TypeResult StatusJessi Comer APRN.CNPLABORATORY Final ResultPerforming OrganizationAddressCity/State/ZIP CodePhone Number [facility] [address] [place] [address], * (ABNORMAL) ALBUMIN/CREATININE RATIO, URINE (09/25/2024 3:34 PM EDT)Component ValueRef RangeTest MethodAnalysis TimePerformed AtPathologist Signature Creatinine, Ur Random (UCRR)19.1(L)20.0 - 300.0 mg/dL09/26/2024 5:17 AM EDT [facility] LABAlbumin, Urine Fymdnt87.2mg/L09/26/2024 5:17 AM [facility] LABAlbumin/Creat Xcmzy488(H)<30 mg/g 09/26/2024 5:17 AM [facility] LABComment: Adult Male and Female Nephrotic Criteria: <30 mg/g is considered normal to mildly increased 30-300 mg/g is considered moderately increased >300 mg/g is considered severely increased KDIGO. (2013). KDIGO 2012 Clinical Practice Guideline for the Evaluation and Management of Chronic Kidney Disease. Official Journal of the International Society of Nephrology, 3(1), 1-150. Specimen (Source)Anatomical Location / LateralityCollection Method / Volume Collection TimeReceived TimeUrineURINE SPECIMEN / UnknownNon Blood / Unknown 09/25/2024 3:34 PM EDT09/25/2024 3:34 PM EDT Narrative Authorizing ProviderResult TypeResult StatusJessi Comer APRN.CNPLABORATORY Final ResultPerforming OrganizationAddressCity/State/ZIP CodePhone Number [facility] [address] [facility] [address] [place] [address], [place] * (ABNORMAL) LIPID PANEL, NONFASTING (09/25/2024 3:20 PM EDT)ComponentValueRef RangeTest MethodAnalysis TimePerformed AtPathologist SignatureTotal Cholesterol, Arnjdqkfrw952<200 mg/dL09/26/2024 6:29 AM [facility] LABComment: <200 mg/dL, Desirable 200-239 mg/dL, Borderline high >239 mg/dL, High Triglycerides, Abyqaskixo941(H)<150 mg/dL09/26/2024 6:29 AM [facility] LABComment: <150 mg/dL, Normal 150-199 mg/dL, Borderline high 200-499 mg/dL, High >499 mg/dL, Very high HDL Cholesterol, Usyjlwjanb39>39 mg/dL09/26/2024 6:29 AM [facility] LABComment: 40-59 mg/dL, Acceptable >59 mg/dL, High: Negative risk factor for coronary heart disease <40 mg/dL, Low: Positive risk factor for coronary heart disease LDL Cholesterol Calculated, Uweekzpfbw03<100 mg/dL09/26/2024 6:29 AM EDT [facility] LABComment: <100 mg/dL, Optimal 100-129 mg/dL, Near optimal/above optimal 130-159 mg/dL, Borderline high 160-189 mg/dL, High >189 mg/dL, Very high Secondary prevention optimal LDL Cholesterol levels are recommended to be < 70 mg/dL Non HDL Cholesterol, Bospwlqjfe33<130 mg/dL09/26/2024 6:29 AM [facility] LABComment: <130 mg/dL, Optimal 130-159 mg/dL, Near optimal/above optimal 160-189 mg/dL, Borderline high 190-219 mg/dL, High >219 mg/dL, Very high Secondary prevention optimal non HDL Cholesterol levels are recommended to be <100 mg/dL VLDL Cholesterol, Lsbaydqkzv04(H)<30 mg/dL09/26/2024 6:29 AM [facility] LABTotal Chol/HDL Ratio, Nonfasting2.82<5.10 mg/dL09/26/2024 6:29 AM [facility] LABLDL/HDL Ratio, Nonfasting1.16<2.54 mg/dL 09/26/2024 6:29 AM [facility] LABComment: Reference: 1. National Cholesterol Education Program ATP III Guideline At-A-Glance Quick Desk Reference: National Heart, Lung, and Blood [place]. National Institutes of Health. 2001: NIH Publication No. 01-3305. 2. An International Atherosclerosis Society position paper: global recommendations for the management of dyslipidemia: executive summary, Atherosclerosis. 2014: 232(2):410-413. Specimen (Source)Anatomical Location / LateralityCollection Method / Volume Collection TimeReceived TimeBloodBLOOD SPECIMEN / UnknownVenipuncture / Unknown 09/25/2024 3:20 PM EDT09/25/2024 3:21 PM EDT Narrative Authorizing ProviderResult TypeResult StatusKirsten Souleymane KNIGHTCNPLABORATORY Final ResultPerforming OrganizationAddressCity/State/ZIP CodePhone Number [facility] [address] from Last 3 Months or Most Recently Relevant to Health Maintenance Insurance Care Teams Team MemberRelationshipSpecialtyStart DateEnd Date Arnold Castro DO [address] [place] [address] PCP - GeneralInternal Medicine03/30/18 Anatoly Anne APRN.CNP [address] [place] [address] ReferringInternal Olkesgih06/16/24
--- OUTSIDE RECORDS SUMMARY | 2025-07-10 12:47 | XMS_ITS | Encounter Summary ---
Author Organization [facility] Address [address] [place] [address] Care Team Providers Care [facility]S T[facility] Name Role Phone Unavailable Primary Care Provider Unavailabl e Reason for Visit * ReasonOnset DateCommentsID OPAT Start Of Care (SOC)07/04/2025 Encounter Details DateTypeDepartmentCare Team (Latest Contact Info)Zgyoklxlrru60/24/2025Telephone [facility] Infectious Disease [facility] [address] [place] [address] [place] [address] ID OPAT Start Of Care (SOC) Social History Tobacco UseTypesPacks/DayYears UsedDateSmoking Tobacco: Never AssessedAH UtilitiesAnswerDate RecordedIn the past 12 months has [...] InformationValueDate RecordedSex Assigned at BirthNot on fileLegal WmmYtyh97/22/2023 9:47 AM ESTGender IdentityNot on file Sexual OrientationNot on filedocumented as of this encounter Miscellaneous Notes * Telephone Encounter - Rachel Frankel RN - 07/04/2025 11:51 AM EST ID OPAT order confirmation: I spoke with coordinator at [facility] The following information from the ID antibiotic orders note was confirmed: [x]Antibiotic orders (medication(s), dose, frequency, anticipated end date) [x]Lab orders (specific lab orders, frequency, where results are to be faxed) Patient was identified by name and date of . Rachel Frankel RN, RN documented in this encounter Plan of Treatment DateTypeDepartmentCare Team (Latest Contact Info)Bkgruflvanu69/21/2026 11:00 AM ESTOffice Visit [facility] Infect[facility] [address] [place] [address] Jacqueline Baptiste MD [address] [place] [address] documented as of this encounter Visit Diagnoses Not on filedocumented in this encounter
--- OUTSIDE RECORDS SUMMARY | 2025-07-10 12:47 | XMS_ITS | Encounter Summary ---
Author Organization [facility] Address [address] [place] [address] Care Team Providers Care Hide Splitter Name Role Phone Arnold Castro Primary Care Provider Anatoly Anne APRN.WEB MARKETING INTERN Unavailable [phone] Source Comments In the event this information is protected by the Federal Confidentiality of Alcohol and Drug AbusePatient Records regulations: The Federal rules restrict any use of the information to criminally investigate or prosecute any alcohol or drug abuse patient.[facility] Reason for Visit * ReasonCommentsMed Change Request Encounter Details DateTypeDepartmentCare Team (Latest Contact Info)Rntmqcpsgeo58/26/2025Refill Endocrinology [address] [place] [address] Jessi Comer APRN.WEB MARKETING INTERN [address] [facility] [place] [address] Med Change Request Social History Tobacco UseTypesPacks/DayYears UsedDateSmoking Tobacco: KezibnEkcjlnssex5Tbti: 03/15/2018Smokeless Tobacco: NeverAlcohol UseStandard Drinks/WeekCommentsYes0 (1 standard drink = 0.6 oz pure alcohol)social useArea Deprivation IndexAnswerDate RecordedNational Score (1-100), lower number is lower cewv697107/06/2024State Score (1-10), lower number is lower snmg25309/06/2023ata from: https://www.neighborhoodatlas.medicine.[facility]/. Last address used for ddhmxtuadww[address] [facility]07/06/2024Sex and Gender InformationValueDate RecordedSex Assigned at BirthNot on fileLegal EudVrqb6403/30/2018 9:09 AM EDT Gender IdentityNot on fileSexual OrientationNot on fileTravel HistoryTravel StartTravel AnjPrqmqrn20documented as of this encounter Miscellaneous Notes * Telephone Encounter - Lit Goodwin MA - 07/06/2025 12:13 PM EST Images from the original note were not included. 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, with long-term current use of insulin (HCC) 04/09/2025 in [facility] with JESSI COMER for 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, with long-term current use of insulin (HCC) 05/03/2025 in [facility] with JESSI COMER for 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, with long-term current use of insulin (HCC) 06/19/2025 in [facility] with JESSI COMER for 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, with long-term current use of insulin (HCC) Upcoming Endocrinology Appointments - Next 365 Days Visit Type Date Time Department EST LAURA PATIENT 07/24/2025 12:15 PM [facility] DIAB PT ED 07/24/2025 1:00 PM ENDO DIAB ED [facility] Requested Prescriptions Pending Prescriptions Disp Refills dasiglucagon (ZEGALOGUE AUTOINJECTOR) 0.6 mg/0.6 mL subcutaneous auto-injector [Pharmacy Med Name: ZEGALOGUE 0.6 MG/0.6ML AUTOINJ] 0 Latest Ref Rng & Units 04/09/2025 10/26/2024 07/06/2024 Hemoglobin A1C Hemoglobin A1C 4.3 - 5.6 % 12.8 Hemoglobin A1C (POCT) 4.3 - 5.6 % 12.0 10.1 TSH: None on file in the last 12 months Free T3: None on file in the last 12 months Free T4: None on file in the last 12 months Thyroglobulin: None on file in the last 12 months Vitamin D: None on file in the last 12 months Hematocrit: None on file in the last 12 months Latest Ref Rng & Units 09/25/2024 Creatinine Creatinine 0.73 - 1.22 mg/dL 1.09 Latest Ref Rng & Units 09/25/2024 eGFR EGFR >=60 mL/min/1.73m 66 Latest Ref Rng & Units 09/25/2024 Potassium Potassium 3.7 - 5.1 mmol/L 5.2 Testosterone: None on file in the last 12 months IGF: None on file in the last 12 months Prolactin: None on file in the last 12 months documented in this encounter Plan of Treatment DateTypeDepartmentCare Team (Latest Contact Info)Jvkskddfhoz24/13/2026 12:15 PM ESTOffice Visit Endocrinology [address] [facility] [place] [address] Jessi Comer, SCHOOL BUSINESS ADMINISTRATOR.WEB MARKETING INTERN [address] [facility] [place] [address] follow up ok per Vyfagrb2607/24/2025 1:00 PM ESTNurse Visit Endocrinology [address] [facility] [place] [address] [place] [address] [place] [address] Follow Updocumented as of this encounter Visit Diagnoses Not on filedocumented in this encounter Care Teams Team MemberRelationshipSpecialtyStart DateEnd Date Arnold Castro DO [address] [place] [address] PCP - GeneralInternal Medicine03/30/18 Anatoly Anne APRN.CNP [address] [place] [address] ReferringInternal Xkcruebz28/16/24documented as of this encounter
--- OUTSIDE RECORDS SUMMARY | 2025-07-10 12:47 | XMS_ITS | Encounter Summary ---
Author Organization [facility] Address [address] [place], [place] [id number] Care Team Providers Care Doll Repairer Name Role Phone Arnold Castro Primary Care Provider Anatoly Anne APRN.COMMODITY MANAGEMENT SPECIALIST Unavailable [phone] Source Comments In the event this information is protected by the Federal Confidentiality of Alcohol and Drug AbusePatient Records regulations: The Federal rules restrict any use of the information to criminally investigate or prosecute any alcohol or drug abuse patient.[facility] Reason for Visit * ReasonCommentsFormsCV[facility]- chart notes as well as Cpeptide and fasting glucose Encounter Details DateTypeDepartmentCare Team (Latest Contact Info)Psvhvezfeqh06/24/2025Telephone Endocrinology [address] [place] [address] Jessi Comer APRN.COMMODITY MANAGEMENT SPECIALIST [address] [place] [address] Forms ([facility]- chart notes as well as Cpeptide and fasting glucose) Social History Tobacco UseTypesPacks/DayYears UsedDateSmoking Tobacco: FobcxiSfylsfehdb2Tbqe: 03/15/2018Smokeless Tobacco: NeverAlcohol UseStandard Drinks/WeekCommentsYes0 (1 standard drink = 0.6 oz pure alcohol)social useArea Deprivation IndexAnswerDate RecordedNational Score (1-100), lower number is lower afjb613407/06/2024State Score (1-10), lower number is lower hxvc08809/06/2023ata from: https://www.neighborhoodatlas.[facility].edu/. Last address used for ygovowdudyr[address] [facility]07/06/2024Sex and Gender InformationValueDate RecordedSex Assigned at BirthNot on fileLegal MamUayk5103/30/2018 9:09 AM EDT Gender IdentityNot on fileSexual OrientationNot on fileTravel HistoryTravel StartTravel EnsHduqveh41documented as of this encounter Miscellaneous Notes * Telephone Encounter - Lit Goodwin MA - 07/04/2025 11:52 AM EST Received a form from [facility] requesting last office visit notes as well as CPeptide and fasting glucose. Placed on Jessi's desk awaiting signature. Please fax once completed. documented in this encounter Plan of Treatment DateTypeDepartmentCare Team (Latest Contact Info)Serowlvyvkn02/13/2026 12:15 PM ESTOffice Visit Endocrinology [address] [place] [address] Jessi Comer, AMADA.COMMODITY MANAGEMENT SPECIALIST [address] [place] [address] follow up ok per Bimpgyb8907/24/2025 1:00 PM ESTNurse Visit Endocrinology [address] [facility] [place] [place] [address] Jason Hughes, KARIN [address] [place] [address] Follow Updocumented as of this encounter Visit Diagnoses Not on filedocumented in this encounter Care Teams Team MemberRelationshipSpecialtyStart DateEnd Date Arnold Castro DO [address] [place] [address] PCP - GeneralInternal Medicine03/30/18 Anatoly Anne APRN.KALANI [address] [place] [address] ReferringInternal Mqevwbje30/16/24documented as of this encounter
--- OUTSIDE RECORDS SUMMARY | 2025-07-10 12:48 | XMS_ITS | Clinical Summary ---
Author Organization [facility] Address [address] [facility] [place] [address] Care Team Providers Care Sales Order Coordinator Name Role Phone Unavailable Primary Care Provider Unavailabl e Source Comments The following information is NOT included in Care Everywhere downloads:Psychiatric notes, ECG results, Cardiac Rehab notes, Pulmonary Function notes, data from [employer] (includes but not limited toPregnancy data,audiograms, eye exams, pre-surgical evaluation notes, well-child exam data).[facility] Medications MedicationSigDispense QuantityRefillsLast FilledStart DateEnd DateStatus insulin glargine (LANTUS) 100 UNIT/ML injection Inject 15 Units under the skin at bedtime.Active insulin aspart (NovoLOG) 100 UNIT/ML injection Inject 5 Units under the skin 3 times daily (before meals). With sliding scale insulin as already establishedActive aspirin EC 81 MG tablet Take 81 mg by mouth daily.Active atorvastatin (LIPITOR) 40 mg tablet Take 40 mg by mouth daily.Active losartan (COZAAR) 25 MG tablet Take 25 mg by mouth daily.Active metoprolol (LOPRESSOR) 25 MG tablet Take 12.5 mg by mouth daily.Active spironolactone (ALDACTONE) 25 MG tablet Take 25 mg by mouth daily.Active paroxetine (PAXIL) 40 MG tablet Take 40 mg by mouth daily.Active tamsulosin (FLOMAX) 0.4 MG capsule Take 0.4 mg by mouth daily.Active Pancrelipase, Thq-Cyse-Rovj, 52462-76793 units CPEP Take 24,000 Units by mouth 3 times daily (with meals). 270 Capsule 07/03/2025 3:09 PM EST5Active ferrous sulfate 325 mg (65 mg elemental) tablet Take 1 Tablet by mouth every other day. 45 Tablet 07/03/2025 3:09 PM EST/ctive lidocaine (LIDODERM) 4 % PTCH patch Place 1 Patch on the skin every 24 hours. To back pain 30 Patch 07/03/2025 3:09 PM ESTctive acetaminophen (TYLENOL) 500 MG tablet Take 2 Tablets by mouth 3x Daily. 540 Tablet 07/03/2025 3:09 PM EST5Active oxyCODONE 5 MG immediate release tablet Indications:Acute midline low back pain without sciaticaTake 1 Tablet by mouth every 6 hours as needed for up to 5 days. 20 Tablet 07/03/2025 3:09 PM ESTExpired Active Problems ProblemNoted DateDiagnosed DateCAD (coronary artery disease)06/25/2025 Assessment & Plan (07/02/2025 2:21 PM EST): Last EF 35% 06/2025. - stable; no active chest pain; no signs of volume overload - continue home ASA 81 mg daily - continue home atorvastatin 40 mg HS - continue home losartan 25 mg daily - continue home toprol 12.5 mg HS - continue home spironolactone 25 mg daily - not on SGLTi (clarify with endo/cards outpatient) Assessment & Plan (07/01/2025 12:04 PM EST): - stable; no active chest pain; no signs of volume overload - continue home ASA 81 mg daily - continue home atorvastatin 40 mg HS - continue home losartan 25 mg daily - continue home toprol 12.5 mg HS - continue home spironolactone 25 mg daily Assessment & Plan (06/30/2025 11:35 AM EST): - stable; no active chest pain; no signs of volume overload - continue home ASA 81 mg daily - continue home atorvastatin 40 mg HS - continue home losartan 25 mg daily - continue home toprol 12.5 mg HS - continue home spironolactone 25 mg daily Assessment & Plan (06/29/2025 12:22 PM EST): - stable; no active chest pain; no signs of volume overload - continue home ASA 81 mg daily - continue home atorvastatin 40 mg HS - continue home losartan 25 mg daily - continue home toprol 12.5 mg HS - continue home spironolactone 25 mg daily Assessment & Plan (06/28/2025 1:47 PM EST): - stable; no active chest pain; no signs of volume overload - continue home ASA 81 mg daily - continue home atorvastatin 40 mg HS - continue home losartan 25 mg daily - continue home toprol 12.5 mg HS - continue home spironolactone 25 mg daily Assessment & Plan (06/27/2025 12:58 PM EST): - stable; no active chest pain; no signs of volume overload - continue home ASA 81 mg daily - continue home atorvastatin 40 mg HS - continue home losartan 25 mg daily - continue home toprol 12.5 mg HS - continue home spironolactone 25 mg daily Assessment & Plan (06/26/2025 1:27 PM EST): - stable; no active chest pain; no signs of volume overload - continue home ASA 81 mg daily - continue home atorvastatin 40 mg HS - continue home losartan 25 mg daily - continue home toprol 12.5 mg HS - continue home spironolactone 25 mg daily Assessment & Plan (06/25/2025 11:42 AM EST): - stable; no active chest pain; no signs of volume overload - continue home ASA 81 mg daily - continue home atorvastatin 40 mg HS - continue home losartan 25 mg daily - continue home toprol 12.5 mg HS - continue home spironolactone 25 mg daily Assessment & Plan (06/25/2025 8:28 AM EST): - stable; no active chest pain; no signs of volume overload - continue home ASA 81 mg daily - continue home atorvastatin 40 mg HS - continue home losartan 25 mg daily - continue home toprol 12.5 mg HS - continue home spironolactone 25 mg daily HFrEF (heart failure with reduced ejection fraction)06/25/2025 Assessment & Plan (07/02/2025 2:21 PM EST): Last EF 35% 06/2025. - stable; no active chest pain; no signs of volume overload - continue home ASA 81 mg daily - continue home atorvastatin 40 mg HS - continue home losartan 25 mg daily - continue home toprol 12.5 mg HS - continue home spironolactone 25 mg daily - not on SGLTi (clarify with endo/cards outpatient) Assessment & Plan (07/01/2025 12:04 PM EST): - stable; no active chest pain; no signs of volume overload - continue home ASA 81 mg daily - continue home atorvastatin 40 mg HS - continue home losartan 25 mg daily - continue home toprol 12.5 mg HS - continue home spironolactone 25 mg daily Assessment & Plan (06/30/2025 11:35 AM EST): - stable; no active chest pain; no signs of volume overload - continue home ASA 81 mg daily - continue home atorvastatin 40 mg HS - continue home losartan 25 mg daily - continue home toprol 12.5 mg HS - continue home spironolactone 25 mg daily Assessment & Plan (06/29/2025 12:22 PM EST): - stable; no active chest pain; no signs of volume overload - continue home ASA 81 mg daily - continue home atorvastatin 40 mg HS - continue home losartan 25 mg daily - continue home toprol 12.5 mg HS - continue home spironolactone 25 mg daily Assessment & Plan (06/28/2025 1:47 PM EST): - stable; no active chest pain; no signs of volume overload - continue home ASA 81 mg daily - continue home atorvastatin 40 mg HS - continue home losartan 25 mg daily - continue home toprol 12.5 mg HS - continue home spironolactone 25 mg daily Assessment & Plan (06/27/2025 12:58 PM EST): - stable; no active chest pain; no signs of volume overload - continue home ASA 81 mg daily - continue home atorvastatin 40 mg HS - continue home losartan 25 mg daily - continue home toprol 12.5 mg HS - continue home spironolactone 25 mg daily Assessment & Plan (06/26/2025 1:27 PM EST): - stable; no active chest pain; no signs of volume overload - continue home ASA 81 mg daily - continue home atorvastatin 40 mg HS - continue home losartan 25 mg daily - continue home toprol 12.5 mg HS - continue home spironolactone 25 mg daily Assessment & Plan (06/25/2025 11:42 AM EST): - stable; no active chest pain; no signs of volume overload - continue home ASA 81 mg daily - continue home atorvastatin 40 mg HS - continue home losartan 25 mg daily - continue home toprol 12.5 mg HS - continue home spironolactone 25 mg daily Assessment & Plan (06/25/2025 8:28 AM EST): - stable; no active chest pain; no signs of volume overload - continue home ASA 81 mg daily - continue home atorvastatin 40 mg HS - continue home losartan 25 mg daily - continue home toprol 12.5 mg HS - continue home spironolactone 25 mg daily Presence of implantable cardioverter-defibrillator (ICD)06/25/2025 Assessment & Plan (07/02/2025 2:21 PM EST): Here with MSSA bacteremia, most likely related to recent genitourinary instrumentation (TURP). Thisis occurring in the setting of subacute back pain and presence of an implantable cardiac device. MRI spine with acute/subacute compression fx of T10 unable to rule out vertebral OM. S/p ILNDA awaiting official results. - TTE on admission negative for endocarditis - LINDA 07/02 pending - last Bcx 06/28 with NGTD - ID consulted - cefazolin - ertapenum - await final recs - will need PICC likely - remove chase 07/02 Assessment & Plan (07/01/2025 12:04 PM EST): 89 y/o M with PMH of HFrEF [...] osteomyelitis, discitis, and ICD-associated infection. Transferred to [facility] for advanced imaging and definitive source [...] 06/26 1 GPC - Repeat Bcx2 06/28 NGTD - oxy 5/oxy 7.5 mod/severe pain, dilaudid 0.2 for breakthrough - GI consulted for EGD 06/29 unremarkable - LINDA tentatively planned for Monday 07/02, npo midnight Wednesday - PICC line Wednesday if LINDA negative and Bcx 06/28 negative Assessment & Plan (06/30/2025 12:23 PM EST): 89 y/o M with PMH of HFrEF [...] osteomyelitis, discitis, and ICD-associated infection. Transferred to [facility] for advanced imaging and definitive source [...] if LINDA negative and Bcx 06/28 negative Assessment & Plan (06/29/2025 12:22 PM EST): 89 y/o M with PMH of HFrEF [...] osteomyelitis, discitis, and ICD-associated infection. Transferred to [facility] for advanced imaging and definitive source [...] 1.5 - LINDA tentatively planned for wednesday Assessment & Plan (06/28/2025 1:47 PM EST): 89 y/o M with PMH of HFrEF [...] osteomyelitis, discitis, and ICD-associated infection. Transferred to [facility] for advanced imaging and definitive source [...] 06/24 1/2 GPC - Repeat Bcx2 06/26 1/2 GPC - Repeat Bcx2 06/28 pending - oxy 5/oxy 7.5 mod/severe pain, dilaudid 0.2 for breakthrough Assessment & Plan (06/27/2025 12:58 PM EST): 89 y/o M with PMH of HFrEF [...] osteomyelitis, discitis, and ICD-associated infection. Transferred to [facility] for advanced imaging and definitive source [...] 7.5 mod/severe pain, dilaudid 0.2 for breakthrough Assessment & Plan (06/26/2025 1:27 PM EST): 89 y/o M with PMH of HFrEF [...] osteomyelitis, discitis, and ICD-associated infection. Transferred to [facility] for advanced imaging and definitive source [...] spine - Bcx2 - Repeat Bcx2 06/26 Assessment & Plan (06/25/2025 11:42 AM EST): 89 y/o M with PMH of HFrEF [...] osteomyelitis, discitis, and ICD-associated infection. Transferred to [facility] for advanced imaging and definitive source [...] treatment for discitis and need for LINDA Assessment & Plan (06/25/2025 8:28 AM EST): 89 y/o M with PMH of HFrEF [...] osteomyelitis, discitis, and ICD-associated infection. Transferred to [facility] for advanced imaging and definitive source [...] biventricular ICD first, however - continue cefazolin Stage 3 chronic kidney [id number]/25/2025 Assessment & Plan (07/02/2025 2:21 PM EST): - initially presented to [facility] with an DENISHA (Scr 1.7); since resolved - Scr of 1.15 on presentation here - renally dose medications Assessment & Plan (07/01/2025 12:04 PM EST): - initially presented to [facility] with an DENISHA (Scr 1.7); since resolved - Scr of 1.15 on presentation here - renally dose medications Assessment & Plan (06/30/2025 11:35 AM EST): - initially presented to [facility] with an DENISHA (Scr 1.7); since resolved - Scr of 1.15 on presentation here - renally dose medications Assessment & Plan (06/29/2025 12:22 PM EST): - initially presented to [facility] with an DENISHA (Scr 1.7); since resolved - Scr of 1.15 on presentation here - renally dose medications Assessment & Plan (06/28/2025 1:47 PM EST): - initially presented to [facility] with an DENISHA (Scr 1.7); since resolved - Scr of 1.15 on presentation here - renally dose medications Assessment & Plan (06/27/2025 12:58 PM EST): - initially presented to [facility] with an DENISHA (Scr 1.7); since resolved - Scr of 1.15 on presentation here - renally dose medications Assessment & Plan (06/26/2025 1:27 PM EST): - initially presented to [facility] with an DENISHA (Scr 1.7); since resolved - Scr of 1.15 on presentation here - renally dose medications Assessment & Plan (06/25/2025 11:42 AM EST): - initially presented to [facility] with an DENISHA (Scr 1.7); since resolved - Scr of 1.15 on presentation here - renally dose medications Assessment & Plan (06/25/2025 8:28 AM EST): - initially presented to [facility] with an DENISHA (Scr 1.7); since resolved - Scr of 1.15 on presentation here - renally dose medications S/P TURP (transurethral resection of prostate)06/25/2025 Assessment & Plan (07/02/2025 2:21 PM EST): Here with MSSA bacteremia, most likely related [...] - will need PICC likely - remove chase 07/02 Assessment & Plan (07/01/2025 12:04 PM EST): 89 y/o M with PMH of HFrEF [...] osteomyelitis, discitis, and ICD-associated infection. Transferred to [facility] for advanced imaging and definitive source [...] if LINDA negative and Bcx 06/28 negative Assessment & Plan (06/30/2025 12:23 PM EST): 89 y/o M with PMH of HFrEF [...] osteomyelitis, discitis, and ICD-associated infection. Transferred to [facility] for advanced imaging and definitive source [...] 06/26 1 GPC - Repeat Bcx2 06/28 NGTD - oxy 5/oxy 7.5 mod/severe pain, dilaudid 0.2 for breakthrough - GI consulted for EGD 06/29 unremarkable - LINDA tentatively planned for Monday 07/02, npo midnight Wednesday - PICC line Wednesday if LINDA negative and Bcx 06/28 negative Assessment & Plan (06/29/2025 12:22 PM EST): 89 y/o M with PMH of HFrEF [...] osteomyelitis, discitis, and ICD-associated infection. Transferred to [facility] for advanced imaging and definitive source [...] 1.5 - LINDA tentatively planned for wednesday Assessment & Plan (06/28/2025 1:47 PM EST): 89 y/o M with PMH of HFrEF [...] osteomyelitis, discitis, and ICD-associated infection. Transferred to [facility] for advanced imaging and definitive source [...] 7.5 mod/severe pain, dilaudid 0.2 for breakthrough Assessment & Plan (06/27/2025 12:58 PM EST): 89 y/o M with PMH of HFrEF [...] osteomyelitis, discitis, and ICD-associated infection. Transferred to [facility] for advanced imaging and definitive source [...] 7.5 mod/severe pain, dilaudid 0.2 for breakthrough Assessment & Plan (06/26/2025 1:27 PM EST): 89 y/o M with PMH of HFrEF [...] osteomyelitis, discitis, and ICD-associated infection. Transferred to [facility] for advanced imaging and definitive source [...] spine - Bcx2 - Repeat Bcx2 06/26 Assessment & Plan (06/25/2025 11:42 AM EST): 89 y/o M with PMH of HFrEF [...] osteomyelitis, discitis, and ICD-associated infection. Transferred to [facility] for advanced imaging and definitive source [...] treatment for discitis and need for LINDA Assessment & Plan (06/25/2025 8:28 AM EST): 89 y/o M with PMH of HFrEF [...] osteomyelitis, discitis, and ICD-associated infection. Transferred to [facility] for advanced imaging and definitive source [...] biventricular ICD first, however - continue cefazolin Essential [id number]/15/2025 Assessment & Plan (07/02/2025 2:21 PM EST): Last EF 35% 06/2025. - stable; no active chest pain; no signs of volume overload - continue home ASA 81 mg daily - continue home atorvastatin 40 mg HS - continue home losartan 25 mg daily - continue home toprol 12.5 mg HS - continue home spironolactone 25 mg daily - not on SGLTi (clarify with endo/cards outpatient) Assessment & Plan (07/01/2025 12:04 PM EST): - stable; no active chest pain; no signs of volume overload - continue home ASA 81 mg daily - continue home atorvastatin 40 mg HS - continue home losartan 25 mg daily - continue home toprol 12.5 mg HS - continue home spironolactone 25 mg daily Assessment & Plan (06/30/2025 11:35 AM EST): - stable; no active chest pain; no signs of volume overload - continue home ASA 81 mg daily - continue home atorvastatin 40 mg HS - continue home losartan 25 mg daily - continue home toprol 12.5 mg HS - continue home spironolactone 25 mg daily Assessment & Plan (06/29/2025 12:22 PM EST): - stable; no active chest pain; no signs of volume overload - continue home ASA 81 mg daily - continue home atorvastatin 40 mg HS - continue home losartan 25 mg daily - continue home toprol 12.5 mg HS - continue home spironolactone 25 mg daily Assessment & Plan (06/28/2025 1:47 PM EST): - stable; no active chest pain; no signs of volume overload - continue home ASA 81 mg daily - continue home atorvastatin 40 mg HS - continue home losartan 25 mg daily - continue home toprol 12.5 mg HS - continue home spironolactone 25 mg daily Assessment & Plan (06/27/2025 12:58 PM EST): - stable; no active chest pain; no signs of volume overload - continue home ASA 81 mg daily - continue home atorvastatin 40 mg HS - continue home losartan 25 mg daily - continue home toprol 12.5 mg HS - continue home spironolactone 25 mg daily Assessment & Plan (06/26/2025 1:27 PM EST): - stable; no active chest pain; no signs of volume overload - continue home ASA 81 mg daily - continue home atorvastatin 40 mg HS - continue home losartan 25 mg daily - continue home toprol 12.5 mg HS - continue home spironolactone 25 mg daily Assessment & Plan (06/25/2025 11:42 AM EST): - stable; no active chest pain; no signs of volume overload - continue home ASA 81 mg daily - continue home atorvastatin 40 mg HS - continue home losartan 25 mg daily - continue home toprol 12.5 mg HS - continue home spironolactone 25 mg daily Assessment & Plan (06/25/2025 8:28 AM EST): - stable; no active chest pain; no signs of volume overload - continue home ASA 81 mg daily - continue home atorvastatin 40 mg HS - continue home losartan 25 mg daily - continue home toprol 12.5 mg HS - continue home spironolactone 25 mg daily [id number]/15/2025 Assessment & Plan (07/02/2025 2:21 PM EST): Last EF 35% 06/2025. - stable; no active chest pain; no signs of volume overload - continue home ASA 81 mg daily - continue home atorvastatin 40 mg HS - continue home losartan 25 mg daily - continue home toprol 12.5 mg HS - continue home spironolactone 25 mg daily - not on SGLTi (clarify with endo/cards outpatient) Assessment & Plan (07/01/2025 12:04 PM EST): - stable; no active chest pain; no signs of volume overload - continue home ASA 81 mg daily - continue home atorvastatin 40 mg HS - continue home losartan 25 mg daily - continue home toprol 12.5 mg HS - continue home spironolactone 25 mg daily Assessment & Plan (06/30/2025 11:35 AM EST): - stable; no active chest pain; no signs of volume overload - continue home ASA 81 mg daily - continue home atorvastatin 40 mg HS - continue home losartan 25 mg daily - continue home toprol 12.5 mg HS - continue home spironolactone 25 mg daily Assessment & Plan (06/29/2025 12:22 PM EST): - stable; no active chest pain; no signs of volume overload - continue home ASA 81 mg daily - continue home atorvastatin 40 mg HS - continue home losartan 25 mg daily - continue home toprol 12.5 mg HS - continue home spironolactone 25 mg daily Assessment & Plan (06/28/2025 1:47 PM EST): - stable; no active chest pain; no signs of volume overload - continue home ASA 81 mg daily - continue home atorvastatin 40 mg HS - continue home losartan 25 mg daily - continue home toprol 12.5 mg HS - continue home spironolactone 25 mg daily Assessment & Plan (06/27/2025 12:58 PM EST): - stable; no active chest pain; no signs of volume overload - continue home ASA 81 mg daily - continue home atorvastatin 40 mg HS - continue home losartan 25 mg daily - continue home toprol 12.5 mg HS - continue home spironolactone 25 mg daily Assessment & Plan (06/26/2025 1:27 PM EST): - stable; no active chest pain; no signs of volume overload - continue home ASA 81 mg daily - continue home atorvastatin 40 mg HS - continue home losartan 25 mg daily - continue home toprol 12.5 mg HS - continue home spironolactone 25 mg daily Assessment & Plan (06/25/2025 11:42 AM EST): - stable; no active chest pain; no signs of volume overload - continue home ASA 81 mg daily - continue home atorvastatin 40 mg HS - continue home losartan 25 mg daily - continue home toprol 12.5 mg HS - continue home spironolactone 25 mg daily Assessment & Plan (06/25/2025 8:28 AM EST): - stable; no active chest pain; no signs of volume overload - continue home ASA 81 mg daily - continue home atorvastatin 40 mg HS - continue home losartan 25 mg daily - continue home toprol 12.5 mg HS - continue home spironolactone 25 mg daily Type 1 diabetes mellitus with wuyegnplwwnda06/15/2025 Assessment & Plan (07/02/2025 2:21 PM EST): 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 Follows with endocrinology at [facility]. Labile BG. Home prandial novolog 5 + sliding scale insulin and glargine 12 from 15 recently. 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 Follows with endocrinology at [facility]. 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 Follows with endocrinology at [facility]. 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 Follows with endocrinology at [facility]. 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 Follows with endocrinology at [facility]. 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 Follows with endocrinology at [facility]. 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 Follows with endocrinology at [facility]. 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 Follows with endocrinology at [facility]. 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 Follows with endocrinology at [facility]. 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 Follows with endocrinology at [facility]. Labile BG. Home prandial novolog 5 + sliding scale insulin and glargine 12 from 15 recently. 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 Follows with endocrinology at [facility]. 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 Follows with endocrinology at [facility]. 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 Follows with endocrinology at [facility]. 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 Follows with endocrinology at [facility]. 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 Follows with endocrinology at [facility]. 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 Follows with endocrinology at [facility]. 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 Follows with endocrinology at [facility]. 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 Follows with endocrinology at [facility]. - uncontrolled; A1C 12.8% in 04/2025 - lantus 15 units HS - lispro sliding scale insulin TID AC - glucose checks TID AC + HS - hypoglycemia protocol - carb controlled diet History of bflphwmewyl50/15/2025GERD (gastroesophageal reflux disease)06/25/2025 Acute midline low back pain without mgsvaicl32/15/2025 Assessment & Plan (07/02/2025 2:21 PM EST): MRI spine with acute/subacute compression fx of T10 unable to rule out vertebral OM. Back pain slowly improving. - tylenol 1g TID - oxy 5-7.5 q6h prn - follow up with neurosurgery in clinic with Dr. Mendez in 2-4 weeks -no restrictions from NSGY standpoint Assessment & Plan (07/01/2025 12:04 PM EST): 89 y/o M with PMH of HFrEF [...] osteomyelitis, discitis, and ICD-associated infection. Transferred to [facility] for advanced imaging and definitive source [...] if LINDA negative and Bcx 06/28 negative Assessment & Plan (06/30/2025 12:23 PM EST): 89 y/o M with PMH of HFrEF [...] osteomyelitis, discitis, and ICD-associated infection. Transferred to [facility] for advanced imaging and definitive source [...] 06/26 1 GPC - Repeat Bcx2 06/28 NGTD - oxy 5/oxy 7.5 mod/severe pain, dilaudid 0.2 for breakthrough - GI consulted for EGD 06/29 unremarkable - LINDA tentatively planned for Monday 07/02, npo midnight Wednesday - PICC line Wednesday if LINDA negative and Bcx 06/28 negative Assessment & Plan (06/29/2025 12:22 PM EST): 89 y/o M with PMH of HFrEF [...] osteomyelitis, discitis, and ICD-associated infection. Transferred to [facility] for advanced imaging and definitive source [...] 1.5 - LINDA tentatively planned for wednesday Assessment & Plan (06/28/2025 1:47 PM EST): 89 y/o M with PMH of HFrEF [...] osteomyelitis, discitis, and ICD-associated infection. Transferred to [facility] for advanced imaging and definitive source [...] 7.5 mod/severe pain, dilaudid 0.2 for breakthrough Assessment & Plan (06/27/2025 12:58 PM EST): 89 y/o M with PMH of HFrEF [...] osteomyelitis, discitis, and ICD-associated infection. Transferred to [facility] for advanced imaging and definitive source [...] pending MRI T/L spine - Bcx2 06/24 12 GPC - Repeat Bcx2 06/26 - oxy 5/oxy 7.5 mod/severe pain, dilaudid 0.2 for breakthrough Assessment & Plan (06/26/2025 1:27 PM EST): 89 y/o M with PMH of HFrEF [...] osteomyelitis, discitis, and ICD-associated infection. Transferred to [facility] for advanced imaging and definitive source [...] spine - Bcx2 - Repeat Bcx2 06/26 Assessment & Plan (06/25/2025 11:42 AM EST): 89 y/o M with PMH of HFrEF [...] osteomyelitis, discitis, and ICD-associated infection. Transferred to [facility] for advanced imaging and definitive source [...] treatment for discitis and need for LINDA Assessment & Plan (06/25/2025 8:28 AM EST): 89 y/o M with PMH of HFrEF [...] osteomyelitis, discitis, and ICD-associated infection. Transferred to [facility] for advanced imaging and definitive source [...] biventricular ICD first, however - continue cefazolin Goxnke1506/25/2025 Assessment & Plan (07/02/2025 2:21 PM EST): Hgb 10.4 on admission -> 8.8 No active signs of bleeding Iron 19 iron sat 8% hemolysis labs negative b12, folate wnl - iron supplement outpatient after infection resolves - EGD 06/29 normal Assessment & Plan (07/01/2025 12:06 PM EST): Hgb 10.4 on admission -> 8.8 No active signs of bleeding Iron 19 iron sat 8% hemolysis labs negative b12, folate wnl - iron supplement outpatient after infection resolves - EGD 06/29 normal Assessment & Plan (06/30/2025 11:35 AM EST): Hgb 10.4 on admission -> 8.8 No active signs of bleeding Iron 19 iron sat 8% hemolysis labs negative b12, folate wnl - iron supplement outpatient after infection resolves - GI consulted, plan for EGD prior to LINDA Assessment & Plan (06/29/2025 12:22 PM EST): Hgb 10.4 on admission -> 8.8 No active signs of bleeding Iron 19 iron sat 8% hemolysis labs negative b12, folate wnl - iron supplement outpatient after infection resolves - GI consulted, plan for EGD prior to LINDA Assessment & Plan (06/28/2025 1:47 PM EST): Hgb 10.4 on admission -> 8.8 No active signs of bleeding Iron 19 iron sat 8% hemolysis labs negative b12, folate wnl - iron supplement outpatient after infection resolves - GI consulted, plan for EGD prior to LINDA Assessment & Plan (06/27/2025 12:58 PM EST): Hgb 10.4 on admission No active signs of bleeding Iron 19 iron sat 8% hemolysis labs negative b12, folate wnl - iron supplement outpatient after infection resolves Assessment & Plan (06/26/2025 1:27 PM EST): Hgb 10.4 on admission No active signs of bleeding -check iron studies -check hemolysis labs -b12, folate Assessment & Plan (06/25/2025 11:42 AM EST): Hgb 10.4 on admission No active signs of bleeding -check iron studies MSSA nfexddkxfx89/14/2025 Assessment & Plan (07/02/2025 2:21 PM EST): Here with MSSA bacteremia, most likely related [...] - will need PICC likely - remove chase 07/02 Assessment & Plan (07/01/2025 12:04 PM EST): 89 y/o M with PMH of HFrEF [...] osteomyelitis, discitis, and ICD-associated infection. Transferred to [facility] for advanced imaging and definitive source [...] if LINDA negative and Bcx 06/28 negative Assessment & Plan (06/30/2025 12:23 PM EST): 89 y/o M with PMH of HFrEF [...] osteomyelitis, discitis, and ICD-associated infection. Transferred to [facility] for advanced imaging and definitive source [...] line Wednesday if LINDA negative and Bcx 18 negative Assessment & Plan (06/29/2025 12:22 PM EST): 89 y/o M with PMH of HFrEF [...] osteomyelitis, discitis, and ICD-associated infection. Transferred to [facility] for advanced imaging and definitive source [...] 1.5 - LINDA tentatively planned for wednesday Assessment & Plan (06/28/2025 1:47 PM EST): 89 y/o M with PMH of HFrEF [...] osteomyelitis, discitis, and ICD-associated infection. Transferred to [facility] for advanced imaging and definitive source [...] 7.5 mod/severe pain, dilaudid 0.2 for breakthrough Assessment & Plan (06/27/2025 12:58 PM EST): 89 y/o M with PMH of HFrEF [...] osteomyelitis, discitis, and ICD-associated infection. Transferred to [facility] for advanced imaging and definitive source [...] 7.5 mod/severe pain, dilaudid 0.2 for breakthrough Assessment & Plan (06/26/2025 1:27 PM EST): 89 y/o M with PMH of HFrEF [...] osteomyelitis, discitis, and ICD-associated infection. Transferred to [facility] for advanced imaging and definitive source [...] spine - Bcx2 - Repeat Bcx2 06/26 Assessment & Plan (06/25/2025 11:42 AM EST): 89 y/o M with PMH of HFrEF [...] osteomyelitis, discitis, and ICD-associated infection. Transferred to [facility] for advanced imaging and definitive source [...] treatment for discitis and need for LINDA Assessment & Plan (06/25/2025 8:28 AM EST): 89 y/o M with PMH of HFrEF [...] osteomyelitis, discitis, and ICD-associated infection. Transferred to [facility] for advanced imaging and definitive source [...] biventricular ICD first, however - continue cefazolin Resolved Problems ProblemNoted DateDiagnosed DateResolved DatePostoperative urinary retention 5109/03/2024 Assessment & Plan (07/02/2025 2:21 PM EST): Here with MSSA bacteremia, most likely related [...] - will need PICC likely - remove chase 07/02 Assessment & Plan (07/01/2025 12:04 PM EST): 89 y/o M with PMH of HFrEF [...] osteomyelitis, discitis, and ICD-associated infection. Transferred to [facility] for advanced imaging and definitive source [...] if LINDA negative and Bcx 06/28 negative Assessment & Plan (06/30/2025 12:23 PM EST): 89 y/o M with PMH of HFrEF [...] osteomyelitis, discitis, and ICD-associated infection. Transferred to [facility] for advanced imaging and definitive source [...] if LINDA negative and Bcx 06/28 negative Assessment & Plan (06/29/2025 12:22 PM EST): 89 y/o M with PMH of HFrEF [...] osteomyelitis, discitis, and ICD-associated infection. Transferred to [facility] for advanced imaging and definitive source [...] 06/24 1/2 GPC - Repeat Bcx2 06/26 1/2 GPC - Repeat Bcx2 06/28 pending - oxy 5/oxy 7.5 mod/severe pain, dilaudid 0.2 for breakthrough - GI consulted for LINDA clearance and worsening anemia given hx of gastric ulcer/barrotts esophagus,plan for EGD 06/29 pending reversal of INR to goal 1.5 - LINDA tentatively planned for wednesday Assessment & Plan (06/28/2025 1:47 PM EST): 89 y/o M with PMH of HFrEF [...] osteomyelitis, discitis, and ICD-associated infection. Transferred to [facility] for advanced imaging and definitive source [...] 7.5 mod/severe pain, dilaudid 0.2 for breakthrough Assessment & Plan (06/27/2025 12:58 PM EST): 89 y/o M with PMH of HFrEF [...] osteomyelitis, discitis, and ICD-associated infection. Transferred to [facility] for advanced imaging and definitive source [...] 7.5 mod/severe pain, dilaudid 0.2 for breakthrough Assessment & Plan (06/26/2025 1:27 PM EST): 89 y/o M with PMH of HFrEF [...] osteomyelitis, discitis, and ICD-associated infection. Transferred to [facility] for advanced imaging and definitive source [...] spine - Bcx2 - Repeat Bcx2 06/26 Assessment & Plan (06/25/2025 11:42 AM EST): 89 y/o M with PMH of HFrEF [...] osteomyelitis, discitis, and ICD-associated infection. Transferred to [facility] for advanced imaging and definitive source [...] treatment for discitis and need for LINDA Assessment & Plan (06/25/2025 8:28 AM EST): 89 y/o M with PMH of HFrEF [...] osteomyelitis, discitis, and ICD-associated infection. Transferred to [facility] for advanced imaging and definitive source [...] biventricular ICD first, however - continue cefazolin Left arm ireeuxjk42 Assessment & Plan (07/02/2025 2:21 PM EST): Likely 2/2 infiltrated IV at OSH Improving with elevation LUE DVT US negative for DVT Assessment & Plan (07/01/2025 12:04 PM EST): Likely 2/2 infiltrated IV at OSH Improving with elevation LUE DVT US negative for DVT Assessment & Plan (06/30/2025 11:35 AM EST): LUE DVT US pending r/o dvt Likely 2/2 infiltrated IV at OSH Improving with elevation Assessment & Plan (06/29/2025 12:22 PM EST): LUE DVT US pending r/o dvt Likely 2/2 infiltrated IV at OSH Improving with elevation Assessment & Plan (06/28/2025 1:47 PM EST): LUE DVT US pending r/o dvt Assessment & Plan (06/27/2025 12:58 PM EST): LUE DVT US pending r/o dvt Assessment & Plan (06/26/2025 1:27 PM EST): LUE DVT US r/o dvt Assessment & Plan (06/25/2025 3:47 PM EST): LUE DVT US r/o dvt Encounters DateTypeDepartmentCare CywdWbxdhhuxolk65/26/2025Telephone [facility] [address] [place] [address] Jacqueline Baptiste MD start of home care07/04/2025Telephone [facility] [address] [place] [address] Rachel Frankel RN ID OPAT Start Of Care (SOC)07/04/2025Patient Outreach [facility] Care Management/Patient Access [address] [place], [place] [phone] Rajni Gibson RNapplication consultant Management; Hospital follow-up; Medical Record Review 07/03/2025Telephone [facility] [address] [place] [address] Jacqueline Baptiste MD Prov to follow for home care with IV07/02/2025Results Only Administration [address] [place], [place] [id number] Fritz Vega MD 06/29/2025 4:45 PM ESTAnesthesia Event [facility] [address] [place], [place] [phone] Gray Waters MD 06/29/2025 4:21 PM EST - 06/29/2025 4:51 PM ESTSurgery [facility] [address] [place] [address] Florentino Lindsey MD QJOIMBULBBHOZWTXWUZERFLLNT82/17/0170Cjathz54/16/2025Results Only Administration [address] [place] [address] Evelyn Romero MD 06/25/2025Results Only Administration [address] [place] [address] Sudarshan Lovett MD 06/24/2025 5:46 PM EST - 07/03/2025 4:00 PM ESTHospital Encounter 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 [I25.10]; Essential hypertension [I10]; Gastroesophageal reflux disease, unspecified whether esophagitis present [K21.9]; HFrEF (heart failure with reduced ejection fraction) [I50.20]; 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]; Hyperlipidemia, unspecified hyperlipidemia type [E78.5]; Postoperative urinary retention [N99.89, R33.8]; S/P TURP (transurethral resection of prostate) [Z90.79]; Stage 3a chronic kidney disease (HCC) [N18.31]; Type 1 diabetes mellitus with hyperglycemia (HCC) [E10.65]; Anemia, unspecified type; ICD (implantable cardioverter-defibrillator) in place; Presence of implantable cardioverter-defibrillator (ICD); HFrEF (heart failure with reduced ejection fraction); Anemia due to other cause, not classified; Closed wedge compression fracture of T10 vertebra, initial encounter ([facility]); Acute midline low back pain without sciatica Discharge Disposition: Discharge to Homefrom Last 3 Months Immunizations ImmunizationAdministration DatesNext DueHib (PRP-OMP) (CVX=49)08/18/2018 Influenza, Injectable, Trivalent, Adjuvanted, Preservative Free (GWX=909) 04/17/2024,04/24/2020,04/03/2019,2018Influenza, injectable, adjuvanted, quadrivalent, preservative free (YCT=473)05/19/2023Influenza, injectable, high dose seasonal, trivalent, preservative free (BQX=052)04/24/2025,04/29/2022, 04/29/2021,03/03/2017Meningococcal B, OMV, Adjuvanted (Bexsero,Men-B) (MLD=997) 09/15/2019,08/18/2018Meningococcal conjugate (MCV4,Men-ACWY), Menactra (MCV4P) (SWQ=944)09/15/2019Moderna Bivalent (6m-5y dose 1 or 2, 25 mcg/0.25 mL; 6-11y any dose, 25 mcg/0.25 mL; 12+ yrs any dose, 50 mcg/0.5 mL) COVID-19, mRNA, (QWN=201)05/26/2022Moderna Monovalent (12+ yrs) COVID-19 vaccine, mRNA, spike protein, LNP, PF, 100 mcg/0.5 mL (DTC=798)05/18/2023,08/22/2020,07/25/2020 Pneumococcal conjugate 13 valent (PCV13) (TTQ=238)12/26/2019,08/18/2018 Pneumococcal conjugate 20 valent (PCV20), polysaccharide QSV403 conjugate, adjuvant, PF (MWL=210)04/17/2025Pneumococcal polysaccharide 23 Valent (PPSV23) (CVX=33)09/15/2019,12/25/2015Respiratory syncytial virus (RSV), vaccine, recombinant, protein subunit RSV prefusion F, adjuvant reconstituted, 0.5 mL, preservative free (VCI=862)05/18/2023Td (adult), 5 Lf tetanus toxoid, preservative free, adsorbed (WGC=826)03/18/2018Tdap (IOQ=316)11/05/2023, 03/18/2015Zoster Live (ZVL,Shingles) (BMK=886)05/05/2021Zoster Recombinant (RZV,Shingles) (FIA=490)05/18/2023,05/02/2021 Social History Tobacco UseTypesPacks/DayYears UsedDateSmoking Tobacco: [facility] UtilitiesAnswerDate RecordedIn the past 12 months has the [employer], [employer], oil, or water company threatened to shut [...] RecordedIn the past 12 months has the [employer], oil, or water [employer] threatened to shut off services in your home?No06/24/2025Sex and Gender InformationValueDate RecordedSex Assigned at BirthNot on fileLegal GhlKfon54/22/2023 9:47 AM ESTGender IdentityNot on file Sexual OrientationNot on file Last Filed Vital Signs Vital SignReadingTime TakenCommentsBlood Ajlfalwf996/7807/03/2025 1:44 PM EST Qukbq569207/03/2025 1:44 PM MSYMxrerziqssu46.3 ??C (97.4 ??F)07/03/2025 1:44 PM ESTRespiratory Tpsg609009/03/2024 1:44 PM ESTOxygen Viybtrimxv41%07/03/2025 1:44 PM ESTInhaled Oxygen Concentration--Reuwxu85.2 kg (135 lb)06/24/2025 5:31 PM EST Zmwsrb571.8 cm (5' 10 )06/24/2025 5:31 PM ESTBody Mass Index19.37108/25/2024 5:31 PM EST Plan of Treatment DateTypeDepartmentCare Team (Latest Contact Info)Nwsmsbqsuwx10/21/2026 11:00 AM ESTOffice Visit [facility] [address] [place], [place] [phone] Jacqueline Baptiste MD [address] [place] [address] Health MaintenanceDue DateLast DoneCommentsFoot Exam1937Eye Exam1937 Hepatitis A (HAV) Vaccine (optional start 19+ years)1956Hepatitis B (HBV) Vaccine (optional start 60+ years)1997Annual Wellness Visit (G0438) 03/12/2003Meningococcal Conjugate (MCV4,ACWY) Vaccine (2 - Risk 2-dose series) Meningococcal B Vaccine (3 of 4 - Increased Risk Bexsero 3- dose series)/12/2019, 08/18/2018COVID-19 Vaccine ( season)/11/2023, 05/18/2023, 05/18/2023, Additional history exists Lipid Nnfriyl00/, 09/25/2024, 09/25/2024, Additional history existsUrine Protein (microalbumin)/, 09/25/2024Hemoglobin A1C /07/2024, 04/09/2025, 04/09/2025, Additional history existsBasic Metabolic Panel, 07/02/2025, 07/01/2025, Additional history existsTetanus (Td or Tdap) Hwxpzge78, 03/18/2018, 03/18/2015 Haemophilus Influenza B (Hib) MvcnchgDvrxdbmis50/07/2019RSV vaccine (adult) Pmnlyhbdt15/07/2023Shingles (RZV) KibvgnkJjgryephk96/07/2023, 05/05/2021, 05/02/2021Tdap WjoiqfiFhkspglbl26/26/2024, 03/18/2015Pneumococcal Vaccine(s) (50+ yrs)Gnwabmvqv99/07/2025, 12/26/2019, 09/15/2019, Additional history exists Influenza WbnvlxgAdzjqqzow74/14/2025, 04/17/2024, 05/19/2023, Additional history existsEjection XxzehkykDbxnnfkza24/22/2025, 06/25/2025 Procedures Procedure NamePriorityDate/TimeAssociated DiagnosisCommentsXR CHEST AP OR PA 1 RLDKEUHG86/23/2025 11:57 AM EST GLUCOSE, FINGERSTICK-IN GEEIDYCnegxff73/23/2025 11:13 AM EST XA PICC INSERT ADULT RN (VIDYA)Txdrwak5507/03/2025 10:58 AM ESTGLUCOSE, FINGERSTICK- IN GUICPWXmexsyj28/23/2025 7:53 AM EST BASIC METABOLIC DZOPGLsqxszr94/23/2025 2:03 AM EST COMPLETE BLOOD YQEKALitlgsc06/23/2025 2:03 AM EST GLUCOSE, FINGERSTICK-IN VICMGFWqtrktv34/22/2025 10:27 PM EST GLUCOSE, FINGERSTICK-IN OQSLLZNhxclrg60/22/2025 4:36 PM EST GLUCOSE, FINGERSTICK-IN XBGSFPTspnoad50/22/2025 11:47 AM EST ECHOCARDIOGRAM GUESFP6307/02/2025 9:09 AM EST GLUCOSE, FINGERSTICK-IN VJFBMMUciclve28/22/2025 8:00 AM EST GLUCOSE, FINGERSTICK-IN ZDMTOGWbxsddz67/22/2025 6:46 AM EST GLUCOSE, FINGERSTICK-IN JEIZSIMxokhvt21/22/2025 4:22 AM EST CBC WITH KSXUTXEEQGHIRpyxxfl95/22/2025 3:23 AM EST COMPLETE BLOOD COUNT W/RLXNZcehcqj73/22/2025 3:23 AM EST BASIC METABOLIC VMCWWBslviig14/22/2025 3:23 AM EST GLUCOSE, FINGERSTICK-IN XILEBXNyldnko85/22/2025 12:54 AM EST GLUCOSE, FINGERSTICK-IN JQAWHEXbyaenv34/21/2025 9:59 PM EST GLUCOSE, FINGERSTICK-IN BCGFJREokgmbv67/21/2025 4:43 PM EST GLUCOSE, FINGERSTICK-IN HDSDBRSckvjoi26/21/2025 12:00 PM EST GLUCOSE, FINGERSTICK-IN VYVFVTLphiyku90/21/2025 7:40 AM EST CBC WITH BWNNECEKROOHUwnvzrv54/21/2025 5:24 AM EST COMPLETE BLOOD COUNT W/IOWZQojeegq38/21/2025 5:24 AM EST BASIC METABOLIC RNSMLIdeqakb21/21/2025 5:24 AM EST GLUCOSE, FINGERSTICK-IN PTESEUPexnxql99/20/2025 8:41 PM EST GLUCOSE, FINGERSTICK-IN XIQECDAjosmpc98/20/2025 4:37 PM EST CBC WITH XNFKCTOGTIUWXiapqza43/20/2025 11:29 AM EST COMPLETE BLOOD COUNT W/VUMOAvgkqib97/20/2025 11:29 AM EST BASIC METABOLIC XWLLFAzlyyxq17/20/2025 11:29 AM EST GLUCOSE, FINGERSTICK-IN YOJNVCQkzwwiq43/20/2025 11:18 AM EST GLUCOSE, FINGERSTICK-IN GKMRGNDltuefc27/20/2025 8:03 AM EST GLUCOSE, FINGERSTICK-IN TKENQWRyduxop97/20/2025 3:23 AM EST GLUCOSE, FINGERSTICK-IN JVEUDLFnphdnq29/19/2025 8:27 PM EST GLUCOSE, FINGERSTICK-IN BQYUGZEqiqgyf39/19/2025 7:04 PM EST GLUCOSE, FINGERSTICK-IN POLGZITomcctg34/19/2025 6:38 PM EST GLUCOSE, FINGERSTICK-IN HEVTSDBditway70/19/2025 5:34 PM EST UPPER GI ENDOSCOPY; DX, W/WO SPECIMEN COLLECTION, BRUSHING/WASHING (SEP PROC) Evdodzn3506/29/2025 5:09 PM EST Anemia, unspecified type Anemia due to other cause, not classified Upper GI Endoscopy; W/Biopsy, Single/Coczncux43/19/2025 4:40 PM EST Anemia due to other cause, not classified Upper Gi Endoscopy; Dx, W/Wo Specimen Collection, Brushing/Washing (Sep Proc) 06/29/2025 4:40 PM EST Anemia due to other cause, not classified GLUCOSE, FINGERSTICK-IN UGDLYTUldkukz32/19/2025 4:18 PM EST GLUCOSE, FINGERSTICK-IN DTPPSYOznohga71/19/2025 3:55 PM EST GLUCOSE, FINGERSTICK-IN BRZHJIIbcjmfo85/19/2025 2:01 PM EST GLUCOSE, FINGERSTICK-IN SBPRLDAsjwbad43/19/2025 11:51 AM EST PROTHROMBIN TIME AND SFMOpoxeps09/19/2025 11:46 AM EST BASIC METABOLIC OSPUGYszodkq96/19/2025 11:46 AM EST MNTJhcctsv72/19/2025 11:22 AM EST PLASMA YBAAWZJskhbst30/19/2025 11:22 AM EST PLASMA CZHWYDApluwtr82/19/2025 11:22 AM EST GLUCOSE, FINGERSTICK-IN STIPCNTpegrkj04/19/2025 11:21 AM EST GLUCOSE, FINGERSTICK-IN HJJLRNSdnvmmb07/19/2025 7:12 AM EST GLUCOSE, FINGERSTICK-IN UROPGHSopyrtb86/19/2025 5:49 AM EST GLUCOSE, FINGERSTICK-IN PKGHAYOtvzwbu03/19/2025 5:35 AM EST GLUCOSE, FINGERSTICK-IN SBOBWPGwaabhb54/19/2025 5:21 AM EST CBC WITH EWFGEZKRIRSIFjbhloc13/19/2025 4:34 AM EST PHOSPHORUSLab Add-On06/29/2025 4:34 AM EST HC HEPATIC FUNCTION PANELLab Add-On06/29/2025 4:34 AM EST TYPE AND KLDYQDIvsrjdl35/19/2025 4:34 AM EST PARTIAL THROMBOPLASTIN HMQPIosxvjc22/19/2025 4:34 AM EST PROTHROMBIN TIME AND SNPQxdezru13/19/2025 4:34 AM EST BASIC METABOLIC KUBKPDqmdzpz40/19/2025 4:34 AM EST COMPLETE BLOOD COUNT W/IHEHJxcihxi24/19/2025 4:34 AM EST GLUCOSE, FINGERSTICK-IN XIPXKDHzhohvi26/18/2025 9:36 PM EST XR T-SPINE 3 MAGFQIqkfwju70/18/2025 7:13 PM EST XR L-SPINE AP+LATERAL 2-3 YYYLHPxougca35/18/2025 7:13 PM EST GLUCOSE, FINGERSTICK-IN PHFQDIHvlnzrv56/18/2025 4:49 PM EST BLOOD WMYCATZQglthnn65/18/2025 12:37 PM EST GLUCOSE, FINGERSTICK-IN UTNUHZBrzpcbb00/18/2025 11:18 AM EST GLUCOSE, FINGERSTICK-IN ASLCRHCxcuijl62/18/2025 7:46 AM EST BLOOD CWCHVMTBnuuomz95/18/2025 5:58 AM EST CBC WITH KCGDAZZDBWZSJlifulb25/18/2025 1:35 AM EST FERRITINLab Add-On06/28/2025 1:35 AM EST IRON AND TIBCLab Add-On06/28/2025 1:35 AM EST COMPLETE BLOOD COUNT W/MFWUSqeagel40/18/2025 1:35 AM EST BASIC METABOLIC KQYEJUzcpcds21/18/2025 1:35 AM EST GLUCOSE, FINGERSTICK-IN EJVJGZWmakeus27/17/2025 10:12 PM EST GLUCOSE, FINGERSTICK-IN DQDUIYGenwibo42/17/2025 4:02 PM EST PERCY-PROCEDURAL DEVICE EVAL, SINGLE, DUAL, MULTIPLE LEAD OR LEADLESS PACEMAKER YPLXTGQyvrmdi19/17/2025 3:03 PM ESTMR T-SPINE W/+W/OSTAT108/28/2024 2:50 PM EST MR L-SPINE W/+W/OSTAT108/28/2024 2:50 PM EST GLUCOSE, FINGERSTICK-IN QCJQJMHdghgpf50/17/2025 8:20 AM EST CBC WITH YQKMDNAZPIORBjbnats29/17/2025 5:43 AM EST VITAMIN B12 (CYANOCOBALAMIN)Vufkwap6106/27/2025 5:43 AM EST FOLIC HESNYxhbyjl29/17/2025 5:43 AM EST HIGLMLRZQQSGrcjdcl50/17/2025 5:43 AM EST UPHDkiundl02/17/2025 5:43 AM EST HNIDMBHYBajlajq33/17/2025 5:43 AM EST IRON AND OURTBtxkark45/17/2025 5:43 AM EST COMPLETE BLOOD COUNT W/HAZDBmzpdfi81/17/2025 5:43 AM EST BASIC METABOLIC VLPCRFzqokvz11/17/2025 5:43 AM EST GLUCOSE, FINGERSTICK-IN WDDLTOQdqwgbo27/16/2025 9:20 PM EST GLUCOSE, FINGERSTICK-IN JVERWYMkcxpsc56/16/2025 4:31 PM EST BLOOD GKPDDZABbljfni26/16/2025 3:09 PM EST BLOOD RLFGCALWsyaiux13/16/2025 3:00 PM EST OCCULT BLOOD, MGIMFEHRP20/16/2025 11:39 AM EST GLUCOSE, FINGERSTICK-IN CMBSGHVtrdjax27/16/2025 11:34 AM EST VASCULAR STUDIES PDIBPW9806/26/2025 9:36 AM EST GLUCOSE, FINGERSTICK-IN FFOAVMWpocdyd83/16/2025 7:54 AM EST MANUAL DIFF AND SAODQUxmbujs94/16/2025 4:10 AM EST CBC WITH DCZBWOMYENITDunlknu72/16/2025 4:10 AM EST PROCALCITONINLab Add-On06/26/2025 4:10 AM EST ERYTHROCYTE SEDIMENTATION RATELab Add-On06/26/2025 4:10 AM EST C-REACTIVE PROTEINLab Add-On06/26/2025 4:10 AM EST COMPLETE BLOOD COUNT W/PGFJEfsieuq72/16/2025 4:10 AM EST BASIC METABOLIC KWZWSEibzxhd53/16/2025 4:10 AM EST CONFIRMATION ABO/LGVtrqqce21/16/2025 4:10 AM EST GLUCOSE, FINGERSTICK-IN IRYHGAJmrayjy95/15/2025 9:35 PM EST GLUCOSE, FINGERSTICK-IN POJZVPJdamcsc45/15/2025 5:41 PM EST INTERROGATION DEVICE EVAL, IN PERSON, SINGLE, DUAL, MULTIPLE LEAD IMPLANTABLE DEFIBRILLATOR IPHVJAWrmkgep43/15/2025 3:05 PM EST Presence of implantable cardioverter-defibrillator (ICD) HFrEF (heart failure with reduced ejection fraction) XR CHEST AP OR PA 1 DHPTMMWH44/15/2025 2:16 PM EST GLUCOSE, FINGERSTICK-IN QBJMVVOhtzwtx36/15/2025 12:06 PM EST GLUCOSE, FINGERSTICK-IN BJVBNMAorvbdn56/15/2025 7:46 AM EST ECHOCARDIOGRAM FIMRJA0506/25/2025 7:17 AM EST GLUCOSE, FINGERSTICK-IN TJKOVNVctnqzu78/14/2025 9:32 PM EST CBC WITH RNPUSTPUIXEMBocbwun01/14/2025 8:52 PM EST BLOOD WSHJEKQRWCZ41/14/2025 8:52 PM EST BLOOD SMVERRBGABC66/14/2025 8:52 PM EST TYPE AND FIPOHMDxirihe44/14/2025 8:52 PM EST COMPLETE BLOOD COUNT W/SHYIHhwkbbl64/14/2025 8:52 PM EST BASIC METABOLIC ZBQFYGkgftsp35/14/2025 8:52 PM EST from Last 3 Months Results * XR CHEST AP OR PA [...] DIAGNOSIS: Central line assessment ORDERING PROVIDER: JOSEPH BROTHERS TECHNOLOGISTS NOTE: COMPARISON: XR CHEST AP OR [...] DIAGNOSIS: Central line assessment ORDERING PROVIDER: JOSEPH BROTHERS TECHNSHAN NOTE: COMPARISON: XR CHEST AP OR PA [...] device. MACRO: None Authorizing ProviderResult TypeResult StatusJoseph ESPARZA DIAGNOSTIC X-RAY 2 Final Result * (ABNORMAL) GLUCOSE, FINGERSTICK-IN OFFICE (07/03/2025 11:13 AM EST)Component ValueRef RangeTest MethodAnalysis TimePerformed AtPathologist Signature Glucose, JST707(H)74 - 109 mg/dL07/03/2025 11:20 AM ESTNURSING GLUCOSE PROGRAM Specimen (Source)Anatomical Location / LateralityCollection Method / Volume Collection TimeReceived TimeBloodBLOOD SPECIMEN / Etsieuz6007/03/2025 11:13 AM EST07/03/2025 11:20 AM EST Narrative Authorizing ProviderResult TypeResult StatusTo Be AssignedEC BACK OFFICE LABS Final ResultPerforming OrganizationAddressCity/State/ZIP CodePhone Number NURSING GLUCOSE PROGRAM [address] [place] [address] * XA PICC INSERT ADULT RN (VIDYA) (07/03/2025 10:58 AM EST)Specimen (Source) Anatomical Location / LateralityCollection Method / VolumeCollection Time Received Time Narrative Authorizing ProviderResult TypeResult StatusJoseph ESPARZA INVASIVE RADIOLOGY Final Result * (ABNORMAL) GLUCOSE, FINGERSTICK-IN OFFICE (07/03/2025 7:53 AM EST)Component ValueRef RangeTest MethodAnalysis TimePerformed AtPathologist Signature Glucose, EQB245(H)74 - 109 mg/dL07/03/2025 8:02 AM ESTNURSING GLUCOSE PROGRAM Specimen (Source)Anatomical Location / LateralityCollection Method / Volume Collection TimeReceived TimeBloodBLOOD SPECIMEN / Bxkrgmd4007/03/2025 7:53 AM EST07/03/2025 8:02 AM EST Narrative Authorizing ProviderResult TypeResult StatusTo Be AssignedEC BACK OFFICE LABS Final ResultPerforming OrganizationAddressCity/State/ZIP CodePhone Number NURSING GLUCOSE PROGRAM [address] [place] [phone] * (ABNORMAL) BASIC METABOLIC PANEL (07/03/2025 2:03 AM EST)ComponentValueRef RangeTest MethodAnalysis TimePerformed AtPathologist LhuurpeggPosvzmu639(H)74 - 109 mg/dL07/03/2025 3:[address] [facility] PATHOLOGY AXVSCGYVYRBzhrcf371(L)136 - 145 mmol/L109/03/2024 3:[address] [facility] PATHOLOGY LABORATORYPotassium4.83.5 - 5.0 mmol/L109/03/2024 3:[address] [facility] PATHOLOGY LABORATORYCarbon Jwrypro5356 - 31 mmol/L109/03/2024 3:[address] [facility] PATHOLOGY AVGIRMAKRBDaqxbvqt43892 - 107 mmol/L 07/03/2025 3:[address] [facility] PATHOLOGY LABORATORYBlood Urea Fohngsiz882 - 25 mg/dL07/03/2025 3:[address] [facility] PATHOLOGY LABORATORYCreatinine0.990.70 - 1.30 mg/dL07/03/2025 3:[address] [facility] PATHOLOGY LABORATORYCalcium8.0(L)8.6 - 10.3 mg/dL07/03/2025 3:[address] [facility] PATHOLOGY LABORATORYAnion Sfc8731 - 20 07/03/2025 3:[address] [facility] PATHOLOGY LABORATORYEstimated GFR (CKD-EPI)73>=60 mL/min/1.37ueb2009/03/2024 3:[address] [facility] PATHOLOGY LABORATORYComment: 2020 CKD EPI [...] Med 2021 Vol. 385 Issue 19 Pages 1321-2903 Specimen (Source)Anatomical Location / LateralityCollection Method / Volume Collection TimeReceived TimeBloodBLOOD SPECIMEN / UnknownVenipuncture / Unknown 07/03/2025 2:03 AM EST07/03/2025 2:57 AM EST Narrative Authorizing ProviderResult TypeResult StatusLafaheem rBothers MD98 GENERAL LABFinal ResultPerforming OrganizationAddressCity/State/ZIP CodePhone Number [facility] PATHOLOGY LABORATORY [address], [place] * (ABNORMAL) COMPLETE BLOOD COUNT (07/03/2025 2:03 AM EST)ComponentValueRef RangeTest MethodAnalysis TimePerformed AtPathologist SignatureWBC7.74.5 - 11.5 K/uL07/03/2025 3:[address] [facility] PATHOLOGY LABORATORYRBC3.25(L)4.50 - 5.90 M/uL 07/03/2025 3:[address] [facility] PATHOLOGY LABORATORYHemoglobin8.5(L)13.9 - 16.3 g/dL 07/03/2025 3:[address] [facility] PATHOLOGY NXWGJASUUOJtfojqrexv72.4(L)41.0 - 53.0 % 07/03/2025 3:[address] [facility] PATHOLOGY NXDOYOUJSMJQA0345 - 100 fL07/03/2025 3:[address] [facility] PATHOLOGY QCWRTCQMWRUYR89.326.0 - 34.0 pg07/03/2025 3:[address] [facility] PATHOLOGY UMHSGDACBIUUVX14.332.0 - 35.9 g/dL07/03/2025 3:[address] [facility] PATHOLOGY GPVRYPTHMLKjaqetbt977082 - 400 K/uL07/03/2025 3:[address] [facility] PATHOLOGY LABORATORYRDW-CV16.1(H)11.5 - 14.5 %07/03/2025 3:[address] [facility] PATHOLOGY LABORATORYMPV9.97.5 - 11.2 UT07/03/2025 3:[address] [facility] PATHOLOGY LABORATORYSpecimen (Source)Anatomical Location / LateralityCollection Method / VolumeCollection TimeReceived TimeBloodBLOOD SPECIMEN / UnknownVenipuncture / Epfhlfd1707/03/2025 2:03 AM EST07/03/2025 2:57 AM EST Narrative Authorizing ProviderResult TypeResult Valery PONCE GENERAL LABFinal ResultPerforming OrganizationAddressCity/State/ZIP CodePhone Number [facility] PATHOLOG[facility] LABORATORY [address] [place] [address] * (ABNORMAL) GLUCOSE, FINGERSTICK-IN OFFICE (07/02/2025 10:27 PM EST)Component ValueRef RangeTest MethodAnalysis TimePerformed AtPathologist Signature Glucose, OVF009(H)74 - 109 mg/dL07/02/2025 10:34 PM ESTNURSING GLUCOSE PROGRAM Specimen (Source)Anatomical Location / LateralityCollection Method / Volume Collection TimeReceived TimeBloodBLOOD SPECIMEN / Mlwboop0707/02/2025 10:27 PM EST07/02/2025 10:34 PM EST Narrative Authorizing ProviderResult TypeResult StatusTo Be AssignedEC BACK OFFICE LABS Final ResultPerforming OrganizationAddHaven Behavioral Healthcarety/State/ZIP CodePhone Number NURSING GLUCOSE PROGRAM [address] [place] [phone] * (ABNORMAL) GLUCOSE, FINGERSTICK-IN OFFICE (07/02/2025 4:36 PM EST)Component ValueRef RangeTest MethodAnalysis TimePerformed AtPathologist Signature Glucose, DLJ076(H)74 - 109 mg/dL07/02/2025 4:42 PM ESTNURSING GLUCOSE PROGRAM Specimen (Source)Anatomical Location / LateralityCollection Method / Volume Collection TimeReceived TimeBloodBLOOD SPECIMEN / Nyhkgdx2007/02/2025 4:36 PM EST07/02/2025 4:42 PM EST Narrative Authorizing ProviderResult TypeResult StatusTo Be AssignedEC BACK OFFICE LABS Final ResultPerforming [facility]/ZIP CodePhone Number NURSING GLUCOSE PROGRAM [address] [place] [phone] * (ABNORMAL) GLUCOSE, FINGERSTICK-IN OFFICE (07/02/2025 11:47 AM EST)Component ValueRef RangeTest MethodAnalysis TimePerformed AtPathologist Signature Glucose, BUH421(H)74 - 109 mg/dL07/02/2025 11:54 AM ESTNURSING GLUCOSE PROGRAM Specimen (Source)Anatomical Location / LateralityCollection Method / Volume Collection TimeReceived TimeBloodBLOOD SPECIMEN / Toglugm1607/02/2025 11:47 AM EST07/02/2025 11:54 AM EST Narrative Authorizing ProviderResult TypeResult StatusTo Be AssignedEC BACK OFFICE LABS Final ResultPerforming OrganizationAddHaven Behavioral Healthcarety/State/ZIP CodePhone Number NURSING GLUCOSE PROGRAM [address] [place] [phone] * ECHOCARDIOGRAM REPORT (07/02/2025 9:09 AM EST)ComponentValueRef RangeTest MethodAnalysis TimePerformed AtPathologist SignatureLeft Ventricular Ejection Vviohdvk82%HEART AND VASCULAR CLINICAortic RegurgitationtrivialHEART AND VASCULAR CLINICMitral RegurgitationmildHEART AND VASCULAR CLINICAnatomical RegionLateralityModalityOtherSpecimen (Source)Anatomical Location / Laterality Collection Method / VolumeCollection TimeReceived Time07/02/2025 9:09 AM EST Narrative Procedure Note Anam Aquino MD - 07/02/2025 9:09 AM EST Transesophageal Echocardiography (LINDA) Study Status:Finalized Demographics Patient name: RANCHO MARADIAGA PatientID: [id number] Gender: Male Height:70 in. Date of : 1935 Weight:135 lb. Age: 89 year(s) BMI:19.4 kg/m^2 BSA:1.77 m^2 Procedure StaffIndications Endocarditis. Interpreting physician: ANAM AQUINO MD Referring Physician: TYRESE FORD MD Fellow: Jose Núñez Nurse: Davi Clark Procedure Information Proc. sub type: LINDA procedure: CARD TRANSESOPH ECHOW/ANESTH. Accession no: [id number] Studylocation: Pre-Post Room Procedure date/time: 07/02/2025 9:09 [...] above for further details. Authorizing ProviderResult TypeResult StatusJosuvandana ESPARZA NON-INVASIVE CARDIOVASCULARFinal Result * (ABNORMAL) GLUCOSE, FINGERSTICK-IN OFFICE (07/02/2025 8:00 AM EST)Component ValueRef RangeTest MethodAnalysis TimePerformed AtPathologist Signature Glucose, ZQG714(H)74 - 109 mg/dL07/02/2025 8:06 AM ESTNURSING GLUCOSE PROGRAM Specimen (Source)Anatomical Location / LateralityCollection Method / Volume Collection TimeReceived TimeBloodBLOOD SPECIMEN / Ajpstwv9707/02/2025 8:00 AM EST07/02/2025 8:06 AM EST Narrative Authorizing ProviderResult TypeResult StatusTo Be AssignedEC BACK OFFICE LABS Final ResultPerforming OrganizationAddressty/State/ZIP CodePhone Number NURSING GLUCOSE PROGRAM [address] [place] [phone] * (ABNORMAL) GLUCOSE, FINGERSTICK-IN OFFICE (07/02/2025 6:46 AM EST)Component ValueRef RangeTest MethodAnalysis TimePerformed AtPathologist Signature Glucose, NEL752(H)74 - 109 mg/dL07/02/2025 6:53 AM ESTNURSING GLUCOSE PROGRAM Specimen (Source)Anatomical Location / LateralityCollection Method / Volume Collection TimeReceived TimeBloodBLOOD SPECIMEN / Nyfxaza0007/02/2025 6:46 AM EST07/02/2025 6:53 AM EST Narrative Authorizing ProviderResult TypeResult StatusTo Be AssignedEC BACK OFFICE LABS Final ResultPerforming OrganizationAddHaven Behavioral Healthcarety/State/ZIP CodePhone Number NURSING GLUCOSE PROGRAM [address] [place] [phone] * (ABNORMAL) GLUCOSE, FINGERSTICK-IN OFFICE (07/02/2025 4:22 AM EST)Component ValueRef RangeTest MethodAnalysis TimePerformed AtPathologist Signature Glucose, SAN268(H)74 - 109 mg/dL07/02/2025 4:28 AM ESTNURSING GLUCOSE PROGRAM Specimen (Source)Anatomical Location / LateralityCollection Method / Volume Collection TimeReceived TimeBloodBLOOD SPECIMEN / Nphpzdc1807/02/2025 4:22 AM EST07/02/2025 4:28 AM EST Narrative Authorizing ProviderResult TypeResult StatusTo Be AssignedEC BACK OFFICE LABS Final ResultPerforming OrganizationAddHaven Behavioral Healthcarety/State/ZIP CodePhone Number NURSING GLUCOSE PROGRAM [address] [place] [phone] * (ABNORMAL) CBC WITH DIFFERENTIAL (07/02/2025 3:23 AM EST)ComponentValueRef RangeTest MethodAnalysis TimePerformed AtPathologist SignatureWBC8.34.5 - 11.5 K/uL07/02/2025 3:[address] [facility] PATHOLOGY LABORATORYRBC3.17(L)4.50 - 5.90 M/uL 07/02/2025 3:[address] [facility] PATHOLOGY LABORATORYHemoglobin8.6(L)13.9 - 16.3 g/dL 07/02/2025 3:41 AM [facility] ZVSBPLWPGPYoshhizucy01.2(L)41.0 - 53.0 % 07/02/2025 3:[address] [facility] PATHOLOGY WSEPPBNJICCAM7290 - 100 fL07/02/2025 3:[address] [facility] PATHOLOGY RHAJZEOXHYUUE41.026.0 - 34.0 pg07/02/2025 3:41 AM EST[facility] HSZBFKURCGUXHQ11.932.0 - 35.9 g/dL07/02/2025 3:[address] [facility] PATHOLOGY LFTERFNYZMEunvazoz176(H)150 - 400 K/uL07/02/2025 3:[address] [facility] PATHOLOGY LABORATORYRDW-CV15.5(H)11.5 - 14.5 %07/02/2025 3:[address] [facility] PATHOLOGY LABORATORYMPV9.77.5 - 11.2 fL07/02/2025 3:[address] [facility] PATHOLOGY WLRNDHBCVWZnqtkpizshf72.631.0 - 76.0 %07/02/2025 3:[address] [facility] PATHOLOGY LABORATORYNeutrophil #5.911.50 - 8.00 K/uL07/02/2025 3:[address] [facility] PATHOLOGY ZCPKXMBKVCMnmpchcvybf53.2(L)24.0 - 44.0 %07/02/2025 3:41 AM ESTPRES[facility] PATHOLOG[facility] LABORATORYLymphocytes #1.091.00 - 4.80 K/uL07/02/2025 3:[address] [facility] PATHOLOGY IXMGKGFRMYQiicodmbu50.8(H)2.0 - 11.0 %07/02/2025 3:41 AM ESTPRES[facility] PATH[facility] LABORATORYMonocyte #1.06(H)0.20 - 1.00 K/uL07/02/2025 3:[address] [facility] PATHOLOGY LABORATORYEosinophil1.10.1 - 4.0 %07/02/2025 3:[address] [facility] PATHOLOGY LABORATORYEosinophil #0.090.00 - 0.70 K/uL07/02/2025 3:[address] [facility] PATHOLOGY LABORATORYBasophils1.3<=1.9 %07/02/2025 3:[address] [facility] PATHOLOGY LABORATORY Basophil #0.110.00 - 0.20 K/uL07/02/2025 3:[address] [facility] PATHOLOGY LABORATORY Specimen (Source)Anatomical Location / LateralityCollection Method / Volume Collection TimeReceived TimeBloodBLOOD SPECIMEN / UnknownVenipuncture / Llwyksl8607/02/2025 3:23 AM EST07/02/2025 3:34 AM EST Narrative Authorizing ProviderResult TypeResult StatusGhassacayla ESPARZA LAB ORDER ONLY Final ResultPerforming OrganizationAddressCity/State/ZIP CodePhone Number [facility] PATH[facility] LABORATORY [address] [place] [address] * (ABNORMAL) BASIC METABOLIC PANEL (07/02/2025 3:23 AM EST)ComponentValueRef RangeTest MethodAnalysis TimePerformed AtPathologist JugpdvkjrQseaxpl965(H)74 - 109 mg/dL07/02/2025 3:[address] [facility] PATHOLOGY IXAYNSEQZOEykmuc465(L)136 - 145 mmol/L109/02/2024 3:[address] [facility] PATHOLOGY LABORATORYPotassium4.73.5 - 5.0 mmol/L109/02/2024 3:[address] [facility] PATHOLOGY LABORATORYCarbon Qakcrrb4526 - 31 mmol/L109/02/2024 3:[address] [facility] PATHOLOGY NIFPHPDQCNHzrvsdyr28765 - 107 mmol/L 07/02/2025 3:[address] [facility] PATHOLOGY LABORATORYBlood Urea Cddnwxtq227 - 25 mg/dL07/02/2025 3:[address] [facility] PATHOLOGY LABORATORYCreatinine0.990.70 - 1.30 mg/dL07/02/2025 3:[address] [facility] PATHOLOGY LABORATORYCalcium7.9(L)8.6 - 10.3 mg/dL07/02/2025 3:[address] [facility] PATHOLOGY LABORATORYAnion Xos1509 - 20 07/02/2025 3:[address] [facility] PATHOLOGY LABORATORYEstimated GFR (CKD-EPI)73>=60 mL/min/1.68uop9009/02/2024 3:58 AM ESTS PATHOLOGY LABORATORYComment: 2020 CKD EPI [...] Med 1 Vol. 385 Issue 19 Pages 6280-9249 Specimen (Source)Anatomical Location / LateralityCollection Method / Volume Collection TimeReceived TimeBloodBLOOD SPECIMEN / UnknownVenipuncture / Unknown 07/02/2025 3:23 AM EST07/02/2025 3:34 AM EST Narrative Authorizing ProviderResult TypeResult StatusSudarshan Lovett MD98 GENERAL LAB Final ResultPerforming OrganizationAddressCity/State/ZIP CodePhone Number [facility] PATH[facility] [address] [place] [address] * (ABNORMAL) GLUCOSE, FINGERSTICK-IN OFFICE (07/02/2025 12:54 AM EST)Component ValueRef RangeTest MethodAnalysis TimePerformed AtPathologist Signature Glucose, IKY430(H)74 - 109 mg/dL07/02/2025 1:00 AM ESTNURSING GLUCOSE PROGRAM Specimen (Source)Anatomical Location / LateralityCollection Method / Volume Collection TimeReceived TimeBloodBLOOD SPECIMEN / Giqrfoh1607/02/2025 12:54 AM EST07/02/2025 1:00 AM EST Narrative Authorizing ProviderResult TypeResult StatusTo Be AssignedEC BACK OFFICE LABS Final ResultPerforming OrganizationAddressCity/State/ZIP CodePhone Number NURSING GLUCOSE PROGRAM [address] [place] [address] * (ABNORMAL) GLUCOSE, FINGERSTICK-IN OFFICE (07/01/2025 9:59 PM EST)Component ValueRef RangeTest MethodAnalysis TimePerformed AtPathologist Signature Glucose, LLX364(H)74 - 109 mg/dL07/01/2025 10:05 PM ESTNURSING GLUCOSE PROGRAM Specimen (Source)Anatomical Location / LateralityCollection Method / Volume Collection TimeReceived TimeBloodBLOOD SPECIMEN / Lhuqoam6207/01/2025 9:59 PM EST07/01/2025 10:05 PM EST Narrative Authorizing ProviderResult TypeResult StatusTo Be AssignedEC BACK OFFICE LABS Final ResultPerforming OrganizationAddressty/State/ZIP CodePhone Number NURSING GLUCOSE PROGRAM [address] [place] [phone] * (ABNORMAL) GLUCOSE, FINGERSTICK-IN OFFICE (07/01/2025 4:43 PM EST)Component ValueRef RangeTest MethodAnalysis TimePerformed AtPathologist Signature Glucose, FSK127(H)74 - 109 mg/dL07/01/2025 4:50 PM ESTNURSING GLUCOSE PROGRAM Specimen (Source)Anatomical Location / LateralityCollection Method / Volume Collection TimeReceived TimeBloodBLOOD SPECIMEN / Juexbmc5807/01/2025 4:43 PM EST07/01/2025 4:50 PM EST Narrative Authorizing ProviderResult TypeResult StatusTo Be AssignedEC BACK OFFICE LABS Final ResultPerforming OrganizationAddHaven Behavioral Healthcarety/State/ZIP CodePhone Number NURSING GLUCOSE PROGRAM [address] [place] [phone] * (ABNORMAL) GLUCOSE, FINGERSTICK-IN OFFICE (07/01/2025 12:00 PM EST)Component ValueRef RangeTest MethodAnalysis TimePerformed AtPathologist Signature Glucose, RDH508(H)74 - 109 mg/dL07/01/2025 12:06 PM ESTNURSING GLUCOSE PROGRAM Specimen (Source)Anatomical Location / LateralityCollection Method / Volume Collection TimeReceived TimeBloodBLOOD SPECIMEN / Thwojhu6807/01/2025 12:00 PM EST07/01/2025 12:06 PM EST Narrative Authorizing ProviderResult TypeResult StatusTo Be AssignedEC BACK OFFICE LABS Final ResultPerforming OrganizationAddHaven Behavioral Healthcarety/State/ZIP CodePhone Number NURSING GLUCOSE PROGRAM [address] [place] [phone] * (ABNORMAL) GLUCOSE, FINGERSTICK-IN OFFICE (07/01/2025 7:40 AM EST)Component ValueRef RangeTest MethodAnalysis TimePerformed AtPathologist Signature Glucose, DXQ959(H)74 - 109 mg/dL07/01/2025 7:46 AM ESTNURSING GLUCOSE PROGRAM Specimen (Source)Anatomical Location / LateralityCollection Method / Volume Collection TimeReceived TimeBloodBLOOD SPECIMEN / Eonrlmk0107/01/2025 7:40 AM EST07/01/2025 7:46 AM EST Narrative Authorizing ProviderResult TypeResult StatusTo Be AssignedEC BACK OFFICE LABS Final ResultPerforming OrganizationAddressCity/State/ZIP CodePhone Number NURSING GLUCOSE PROGRAM [address] [place] [address] * (ABNORMAL) CBC WITH DIFFERENTIAL (07/01/2025 5:24 AM EST)ComponentValueRef RangeTest MethodAnalysis TimePerformed AtPathologist SignatureWBC6.44.5 - 11.5 K/uL07/01/2025 6:[address] [facility] PATHOLOGY LABORATORYRBC3.45(L)4.50 - 5.90 M/uL 07/01/2025 6:[address] [facility] PATHOLOGY LABORATORYHemoglobin9.0(L)13.9 - 16.3 g/dL 07/01/2025 6:[address] [facility] PATHOLOGY AOSAHGLESJNidwepkypv36.8(L)41.0 - 53.0 % 07/01/2025 6:[address] [facility] PATHOLOGY LMYBNWVYCGHQA5085 - 100 fL07/01/2025 6:[address] [facility] PATHOLOGY QTMGJPOFKCLGX20.126.0 - 34.0 pg07/01/2025 6:[address] [facility] PATHOLOGY XAMYPPFGCFHTPX27.432.0 - 35.9 g/dL07/01/2025 6:[address] [facility] PATHOLOGY EDEREQGHVWCavajsqh414(H)150 - 400 K/uL07/01/2025 6:[address] [facility] PATHOLOGY LABORATORYRDW-CV15.6(H)11.5 - 14.5 %07/01/2025 6:[address] [facility] PATHOLOGY LABORATORYMPV9.77.5 - 11.2 fL07/01/2025 6:[address] [facility] PATHOLOGY TQAHIWWLWKNllwwfuftmg37.331.0 - 76.0 %07/01/2025 6:[address] [facility] PATHOLOGY LABORATORYNeutrophil #4.291.50 - 8.00 K/uL07/01/2025 6:[address] [facility] PATHOLOGY QKOYXYMYEBWdfwmmpoulg21.3(L)24.0 - 44.0 %07/01/2025 6:[address] [facility] PATHOLOGY LABORATORYLymphocytes #1.231.00 - 4.80 K/uL07/01/2025 6:[address] [facility] PATHOLOGY HICEGIMPOMWacwkinrj62.82.0 - 11.0 %07/01/2025 6:[address] [facility] PATHOLOGY LABORATORYMonocyte #0.690.20 - 1.00 K/uL07/01/2025 6:[address] [facility] PATHOLOGY LABORATORYEosinophil1.30.1 - 4.0 %07/01/2025 6:[address] [facility] PATHOLOGY LABORATORYEosinophil #0.090.00 - 0.70 K/uL07/01/2025 6:[address] [facility] PATHOLOGY LABORATORYBasophils1.2<=1.9 %07/01/2025 6:[address] [facility] PATHOLOGY LABORATORY Basophil #0.080.00 - 0.20 K/uL07/01/2025 6:[address] [facility] PATHOLOGY LABORATORY Specimen (Source)Anatomical Location / LateralityCollection Method / Volume Collection TimeReceived TimeBloodBLOOD SPECIMEN / UnknownVenipuncture / Htxpjgd8107/01/2025 5:24 AM EST07/01/2025 6:01 AM EST Narrative Authorizing ProviderResult TypeResult StatusGhassacayla Lovett MDJOSE LAB ORDER ONLY Final ResultPerforming OrganizationAddressCity/State/ZIP CodePhone Number [facility] [address] [place] [address] * (ABNORMAL) BASIC METABOLIC PANEL (07/01/2025 5:24 AM EST)ComponentValueRef RangeTest MethodAnalysis TimePerformed AtPathologist ImvhwkbfxXkfjxug942(H)74 - 109 mg/dL07/01/2025 6:[address] [facility] PATHOLOGY YSYGUBJSLCKtnwah731(L)136 - 145 mmol/L109/01/2024 6:[address] [facility] PATHOLOGY LABORATORYPotassium4.83.5 - 5.0 mmol/L109/01/2024 6:[address] [facility] PATHOLOGY LABORATORYCarbon Eyzzmkc2747 - 31 mmol/L109/01/2024 6:[address] [facility] PATHOLOGY SCHVOVOOHYFwdnucim21279 - 107 mmol/L 07/01/2025 6:[address] [facility] PATHOLOGY LABORATORYBlood Urea Mrshvaxd627 - 25 mg/dL07/01/2025 6:[address] [facility] PATHOLOGY LABORATORYCreatinine0.960.70 - 1.30 mg/dL07/01/2025 6:[address] [facility] PATHOLOGY LABORATORYCalcium7.9(L)8.6 - 10.3 mg/dL07/01/2025 6:[address] [facility] PATHOLOGY LABORATORYAnion Rzc3275 - 20 07/01/2025 6:[address] [facility] PATHOLOGY LABORATORYEstimated GFR (CKD-EPI)76>=60 mL/min/1.46byv7309/01/2024 6:[address] [facility] PATHOLOGY LABORATORYComment: 2020 CKD EPI [...] Med 1 Vol. 385 Issue 19 Pages 7386-6472 Specimen (Source)Anatomical Location / LateralityCollection Method / Volume Collection TimeReceived TimeBloodBLOOD SPECIMEN / UnknownVenipuncture / Unknown 07/01/2025 5:24 AM EST07/01/2025 6:01 AM EST Narrative Authorizing ProviderResult TypeResult StatusGhdonnie Lovett MD98 GENERAL LAB Final ResultPerforming OrganizationAddressCity/State/ZIP CodePhone Number [facility] [address] [place] [address] * (ABNORMAL) GLUCOSE, FINGERSTICK-IN OFFICE (06/30/2025 8:41 PM EST)Component ValueRef RangeTest MethodAnalysis TimePerformed AtPathologist Signature Glucose, YRG696(H)74 - 109 mg/dL06/30/2025 8:48 PM ESTNURSING GLUCOSE PROGRAM Specimen (Source)Anatomical Location / LateralityCollection Method / Volume Collection TimeReceived TimeBloodBLOOD SPECIMEN / Cahulzc9406/30/2025 8:41 PM EST06/30/2025 8:48 PM EST Narrative Authorizing ProviderResult TypeResult StatusTo Be AssignedEC BACK OFFICE LABS Final ResultPerforming OrganizationAddressCity/State/ZIP CodePhone Number NURSING GLUCOSE PROGRAM [address] [place] [phone] * (ABNORMAL) GLUCOSE, FINGERSTICK-IN OFFICE (06/30/2025 4:37 PM EST)Component ValueRef RangeTest MethodAnalysis TimePerformed AtPathologist Signature Glucose, HHY268(H)74 - 109 mg/dL06/30/2025 4:43 PM ESTNURSING GLUCOSE PROGRAM Specimen (Source)Anatomical Location / LateralityCollection Method / Volume Collection TimeReceived TimeBloodBLOOD SPECIMEN / Isiyntr7806/30/2025 4:37 PM EST06/30/2025 4:43 PM EST Narrative Authorizing ProviderResult TypeResult StatusTo Be AssignedEC BACK OFFICE LABS Final ResultPerforming OrganizationAddressty/State/ZIP CodePhone Number NURSING GLUCOSE PROGRAM [address] [place] [phone] * (ABNORMAL) CBC WITH DIFFERENTIAL (06/30/2025 11:29 AM EST)ComponentValueRef RangeTest MethodAnalysis TimePerformed AtPathologist SignatureWBC7.74.5 - 11.5 K/uL06/30/2025 11:43 AM [facility] PATHOLOGY LABORATORYRBC3.20(L)4.50 - 5.90 M/uL 06/30/2025 11:43 AM [facility] PATHOLOGY LABORATORYHemoglobin8.6(L)13.9 - 16.3 g/dL06/30/2025 11:43 AM [facility] PATHOLOGY DZKHXQREPOKnxkcekmnu16.6(L)41.0 - 53.0 %06/30/2025 11:43 AM [facility] PATHOLOGY IODMNEKTWOPMP5852 - 100 fL 06/30/2025 11:43 AM [facility] PATHOLOGY OMHACSDTOCRXS71.726.0 - 34.0 pg06/30/2025 11:43 AM [facility] PATHOLOGY YLXQJENPZDXXJB52.432.0 - 35.9 g/dL06/30/2025 11:43 AM [facility] PATHOLOGY ZNFOAQQUAGLhcnwyzz102(H)150 - 400 K/uL06/30/2025 11:[address] [facility] PATHOLOGY LABORATORYRDW-CV15.8(H)11.5 - 14.5 %06/30/2025 11:43 AM EST [facility] PATHOLOGY LABORATORYMPV9.97.5 - 11.2 fL06/30/2025 11:[address] [facility] PATHOLOGY VLSMAWWRDLDacpytumasc28.5(H)31.0 - 76.0 %06/30/2025 11:[address] [facility] PATHOLOGY LABORATORYNeutrophil #5.891.50 - 8.00 K/uL06/30/2025 11:[address] [facility] PATHOLOGY LABORATORYLymphocytes9.3(L)24.0 - 44.0 %06/30/2025 11:[address] [facility] PATHOLOGY LABORATORYLymphocytes #0.72(L)1.00 - 4.80 K/uL06/30/2025 11:[address] [facility] PATHOLOGY LGCFNHOSJJTtlovjbwh44.7(H)2.0 - 11.0 %06/30/2025 11:43 AM EST [facility] PATHOLOGY LABORATORYMonocyte #0.900.20 - 1.00 K/uL06/30/2025 11:43 AM EST [facility] PATHOLOGY LABORATORYEosinophil1.50.1 - 4.0 %06/30/2025 11:[address] [facility] PATHOLOGY LABORATORYEosinophil #0.120.00 - 0.70 K/uL06/30/2025 11:[address] [facility] PATHOLOGY LABORATORYBasophils1.0<=1.9 %06/30/2025 11:[address] [facility] PATHOLOGY LABORATORYBasophil #0.070.00 - 0.20 K/uL06/30/2025 11:[address] [facility] PATHOLOGY LABORATORYSpecimen (Source)Anatomical Location / LateralityCollection Method / VolumeCollection TimeReceived TimeBloodBLOOD SPECIMEN / UnknownVenipuncture / Rnouieh9406/30/2025 11:29 AM EST06/30/2025 11:37 AM EST Narrative Authorizing ProviderResult TypeResult StatusGhdonnie ESPARZA LAB ORDER ONLY Final ResultPerforming OrganizationAddressCity/State/ZIP CodePhone Number [facility] [address] [place] [phone] * (ABNORMAL) BASIC METABOLIC PANEL (06/30/2025 11:29 AM EST)ComponentValueRef RangeTest MethodAnalysis TimePerformed AtPathologist CcntaddmeTorwhgq483(H)74 - 109 mg/dL06/30/2025 12:14 PM [facility] PATHOLOGY NNXADBGNMQSvabjm283(L)136 - 145 mmol/L108/31/2024 12:14 PM [facility] PATHOLOGY LABORATORYPotassium4.33.5 - 5.0 mmol/L108/31/2024 12:14 PM [facility] PATHOLOGY LABORATORYCarbon Iauidqx8804 - 31 mmol/L108/31/2024 12:14 PM [facility] PATHOLOGY VMEEOMHEOEMtdenlqe75593 - 107 mmol/L108/31/2024 12:14 PM [facility] PATHOLOGY LABORATORYBlood Urea Gdwstpbf203 - 25 mg/dL06/30/2025 12:[address] [facility] PATHOLOGY LABORATORYCreatinine0.910.70 - 1.30 mg/dL06/30/2025 12:[address] [facility] PATHOLOGY LABORATORYCalcium8.0(L)8.6 - 10.3 mg/dL06/30/2025 12:14 PM [facility] PATHOLOGY LABORATORYAnion Xpz2196 - 20 06/30/2025 12:14 PM [facility] PATHOLOGY LABORATORYEstimated GFR (CKD-EPI)81>=60 mL/min/1.98rtt9208/31/2024 12:14 PM ESTPRESBYTERIAN ESPAÑOLA [facility] PATHOLOGY LABORATORYComment: 2020 CKD EPI Equation using [...] Med 2021 Vol. 385 Issue 19 Pages 8216-0004 Specimen (Source)Anatomical Location / LateralityCollection Method / Volume Collection TimeReceived TimeBloodBLOOD SPECIMEN / UnknownVenipuncture / Unknown 06/30/2025 11:29 AM EST06/30/2025 11:37 AM EST Narrative Authorizing ProviderResult TypeResult StatusSudarshan Lovett MD98 GENERAL LAB Final ResultPerforming OrganizationAddressCity/State/ZIP CodePhone Number [facility] [address] [place] [phone] * (ABNORMAL) GLUCOSE, FINGERSTICK-IN OFFICE (06/30/2025 11:18 AM EST)Component ValueRef RangeTest MethodAnalysis TimePerformed AtPathologist Signature Glucose, SFM362(H)74 - 109 mg/dL06/30/2025 11:24 AM ESTNURSING GLUCOSE PROGRAM Specimen (Source)Anatomical Location / LateralityCollection Method / Volume Collection TimeReceived TimeBloodBLOOD SPECIMEN / Envmeks4506/30/2025 11:18 AM EST06/30/2025 11:24 AM EST Narrative Authorizing ProviderResult TypeResult StatusTo Be AssignedEC BACK OFFICE LABS Final ResultPerforming OrganizationAddressCity/State/ZIP CodePhone Number NURSING GLUCOSE PROGRAM [address] [place] [address] * (ABNORMAL) GLUCOSE, FINGERSTICK-IN OFFICE (06/30/2025 8:03 AM EST)Component ValueRef RangeTest MethodAnalysis TimePerformed AtPathologist Signature Glucose, MGX506(H)74 - 109 mg/dL06/30/2025 8:10 AM ESTNURSING GLUCOSE PROGRAM Specimen (Source)Anatomical Location / LateralityCollection Method / Volume Collection TimeReceived TimeBloodBLOOD SPECIMEN / Tgsnszg7006/30/2025 8:03 AM EST06/30/2025 8:10 AM EST Narrative Authorizing ProviderResult TypeResult StatusTo Be AssignedEC BACK OFFICE LABS Final ResultPerforming OrganizationAddressCity/State/ZIP CodePhone Number NURSING GLUCOSE PROGRAM [address] [place] [address] * (ABNORMAL) GLUCOSE, FINGERSTICK-IN OFFICE (06/30/2025 3:23 AM EST)Component ValueRef RangeTest MethodAnalysis TimePerformed AtPathologist Signature Glucose, XLI041(H)74 - 109 mg/dL06/30/2025 3:30 AM ESTNURSING GLUCOSE PROGRAM Specimen (Source)Anatomical Location / LateralityCollection Method / Volume Collection TimeReceived TimeBloodBLOOD SPECIMEN / Zqptrpb4106/30/2025 3:23 AM EST06/30/2025 3:30 AM EST Narrative Authorizing ProviderResult TypeResult StatusTo Be AssignedEC BACK OFFICE LABS Final ResultPerforming OrganizationAddHaven Behavioral Healthcarety/State/ZIP CodePhone Number NURSING GLUCOSE PROGRAM [address] [place] [phone] * (ABNORMAL) GLUCOSE, FINGERSTICK-IN OFFICE (06/29/2025 8:27 PM EST)Component ValueRef RangeTest MethodAnalysis TimePerformed AtPathologist Signature Glucose, RRX907(H)74 - 109 mg/dL06/29/2025 8:33 PM ESTNURSING GLUCOSE PROGRAM Specimen (Source)Anatomical Location / LateralityCollection Method / Volume Collection TimeReceived TimeBloodBLOOD SPECIMEN / Nftnvtr0006/29/2025 8:27 PM EST06/29/2025 8:33 PM EST Narrative Authorizing ProviderResult TypeResult StatusTo Be AssignedEC BACK OFFICE LABS Final ResultPerforming OrganizationAddHaven Behavioral Healthcarety/State/ZIP CodePhone Number NURSING GLUCOSE PROGRAM [address] [place] [phone] * GLUCOSE, FINGERSTICK-IN OFFICE (06/29/2025 7:04 PM EST)ComponentValueRef Range Test MethodAnalysis TimePerformed AtPathologist SignatureGlucose, KHS7428 - 109 mg/dL06/29/2025 7:10 PM ESTNURSING GLUCOSE PROGRAMSpecimen (Source) Anatomical Location / LateralityCollection Method / VolumeCollection Time Received TimeBloodBLOOD SPECIMEN / Jsxzqyx3906/29/2025 7:04 PM EST06/29/2025 7:10 PM EST Narrative Authorizing ProviderResult TypeResult StatusTo Be AssignedEC BACK OFFICE LABS Final ResultPerforming OrganizationAddHaven Behavioral Healthcarety/State/ZIP CodePhone Number NURSING GLUCOSE PROGRAM [address] [place] [phone] * (ABNORMAL) GLUCOSE, FINGERSTICK-IN OFFICE (06/29/2025 6:38 PM EST)Component ValueRef RangeTest MethodAnalysis TimePerformed AtPathologist Signature Glucose, POC56(L)74 - 109 mg/dL06/29/2025 6:44 PM ESTNURSING GLUCOSE PROGRAM Specimen (Source)Anatomical Location / LateralityCollection Method / Volume Collection TimeReceived TimeBloodBLOOD SPECIMEN / Hrefshb7106/29/2025 6:38 PM EST06/29/2025 6:44 PM EST Narrative Authorizing ProviderResult TypeResult StatusTo Be AssignedEC BACK OFFICE LABS Final ResultPerforming OrganizationAddHaven Behavioral Healthcarety/State/ZIP CodePhone Number NURSING GLUCOSE PROGRAM [address] [place] [phone] * GLUCOSE, FINGERSTICK-IN OFFICE (06/29/2025 5:34 PM EST)ComponentValueRef Range Test MethodAnalysis TimePerformed AtPathologist SignatureGlucose, SKN3758 - 109 mg/dL06/29/2025 5:40 PM ESTNURSING GLUCOSE PROGRAMSpecimen (Source) Anatomical Location / LateralityCollection Method / VolumeCollection Time Received TimeBloodBLOOD SPECIMEN / Rgjwuqb2006/29/2025 5:34 PM EST06/29/2025 5:40 PM EST Narrative Authorizing ProviderResult TypeResult StatusTo Be AssignedEC BACK OFFICE LABS Final ResultPerforming OrganizationAddHaven Behavioral Healthcarety/State/ZIP CodePhone Number NURSING GLUCOSE PROGRAM [address] [place] [phone] * GLUCOSE, FINGERSTICK-IN OFFICE (06/29/2025 4:18 PM EST)ComponentValueRef Range Test MethodAnalysis TimePerformed AtPathologist SignatureGlucose, UTP9193 - 109 mg/dL06/29/2025 4:24 PM ESTNURSING GLUCOSE PROGRAMSpecimen (Source) Anatomical Location / LateralityCollection Method / VolumeCollection Time Received TimeBloodBLOOD SPECIMEN / Ycyzesj7706/29/2025 4:18 PM EST06/29/2025 4:24 PM EST Narrative Authorizing ProviderResult TypeResult StatusTo Be AssignedEC BACK OFFICE LABS Final ResultPerforming OrganizationAddH[facility] Behavioral Healthcarety/State/ZIP CodePhone Number NURSING GLUCOSE PROGRAM [address] [place] [phone] * (ABNORMAL) GLUCOSE, FINGERSTICK-IN OFFICE (06/29/2025 3:55 PM EST)Component ValueRef RangeTest MethodAnalysis TimePerformed AtPathologist Signature Glucose, POC62(L)74 - 109 mg/dL06/29/2025 4:02 PM ESTNURSING GLUCOSE PROGRAM Comment:Notified RN YANIV OGLESBY
Specimen (Source)Anatomical Location / LateralityCollection Method / VolumeCollection TimeReceived TimeBloodBLOOD SPECIMEN / Addpgdt9806/29/2025 3:55 PM EST06/29/2025 4:02 PM EST Narrative Authorizing ProviderResult TypeResult StatusTo Be AssignedEC BACK OFFICE LABS Final ResultPerforming OrganizationAddH[facility] Behavioral Healthcarety/State/ZIP CodePhone Number NURSING GLUCOSE PROGRAM [address] [place] [phone] * GLUCOSE, FINGERSTICK-IN OFFICE (06/29/2025 2:01 PM EST)ComponentValueRef Range Test MethodAnalysis TimePerformed AtPathologist SignatureGlucose, ACE8378 - 109 mg/dL06/29/2025 2:07 PM ESTNURSING GLUCOSE PROGRAMSpecimen (Source) Anatomical Location / LateralityCollection Method / VolumeCollection Time Received TimeBloodBLOOD SPECIMEN / Ggovavf2706/29/2025 2:01 PM EST06/29/2025 2:07 PM EST Narrative Authorizing ProviderResult TypeResult StatusTo Be AssignedEC BACK OFFICE LABS Final ResultPerforming [facility]Add[facility] Behavioral Healthcarety/State/ZIP CodePhone Number NURSING GLUCOSE PROGRAM [address] [place] [phone] * GLUCOSE, FINGERSTICK-IN OFFICE (06/29/2025 11:51 AM EST)ComponentValueRef RangeTest MethodAnalysis TimePerformed AtPathologist SignatureGlucose, GTC0690 - 109 mg/dL06/29/2025 11:59 AM ESTNURSING GLUCOSE PROGRAMSpecimen (Source) Anatomical Location / LateralityCollection Method / VolumeCollection Time Received TimeBloodBLOOD SPECIMEN / Syfhnpa0906/29/2025 11:51 AM EST06/29/2025 11:59 AM EST Narrative Authorizing ProviderResult TypeResult StatusTo Be AssignedEC BACK OFFICE LABS Final ResultPerforming OrganizationAddHaven Behavioral Healthcarety/State/ZIP CodePhone Number NURSING GLUCOSE PROGRAM [address] [place] [phone] * BASIC METABOLIC PANEL (06/29/2025 11:46 AM EST)ComponentValueRef RangeTest MethodAnalysis TimePerformed AtPathologist DcprnwwciHjdurrj3735 - 109 mg/dL 06/29/2025 12:25 PM [facility] PATHOLOGY NEWVYLKNEDAocwxd801053 - 145 mmol/L 06/29/2025 12:25 PM [facility] PATHOLOGY LABORATORYPotassium4.43.5 - 5.0 mmol/L 06/29/2025 12:25 PM [facility] PATHOLOGY LABORATORYCarbon Qdtubjs8009 - 31 mmol/L 06/29/2025 12:[address] [facility] PATHOLOGY OKGNYHDQJFYpqgaply19885 - 107 mmol/L 06/29/2025 12:[address] [facility] PATHOLOGY LABORATORYBlood Urea Vkdxtzru169 - 25 mg/dL06/29/2025 12:[address] [facility] PATHOLOGY LABORATORYCreatinine0.880.70 - 1.30 mg/dL06/29/2025 12:[address] [facility] PATHOLOGY LABORATORYCalcium8.68.6 - 10.3 mg/dL 06/29/2025 12:[address] [facility] PATHOLOGY LABORATORYAnion Nor3155 - 12:[address] [facility] PATHOLOGY LABORATORYEstimated GFR (CKD-EPI)83>=60 mL/min/1.11qgp7508/30/2024 12:[address] [facility] PATHOLOGY LABORATORYComment: 2020 CKD EPI [...] Med 1 Vol. 385 Issue 19 Pages 7743-5240 Specimen (Source)Anatomical Location / LateralityCollection Method / Volume Collection TimeReceived TimeBloodBLOOD SPECIMEN / UnknownVenipuncture / Unknown 06/29/2025 11:46 AM EST06/29/2025 11:55 AM EST Narrative Authorizing ProviderResult TypeResult StatusDelight Wong PONCE GENERAL LAB Final ResultPerforming OrganizationAddressCity/State/ZIP CodePhone Number [facility] [address] [place] [address] * (ABNORMAL) PROTHROMBIN TIME AND INR (06/29/2025 11:46 AM EST)ComponentValueRef RangeTest MethodAnalysis TimePerformed AtPathologist WnbunecmdUzbacwb88.7(H) 9.7 - 12.9 sec06/29/2025 12:[address] [facility] PATHOLOGY LABORATORYINR2.65(H)0.90 - 1.10108/30/2024 12:[address] [facility] PATHOLOGY LABORATORYSpecimen (Source)Anatomical Location / LateralityCollection Method / VolumeCollection TimeReceived Time BloodBLOOD SPECIMEN / UnknownVenipuncture / Irhoclm1206/29/2025 11:46 AM EST 06/29/2025 11:50 AM EST Narrative Authorizing ProviderResult TypeResult StatusEvelyn Romero MD GENERAL LAB Final ResultPerforming OrganizationAddressty/State/ZIP CodePhone Number [facility] PATH[facility]ATORY [address] [place] [phone] * FFP (06/29/2025 11:22 AM EST)ComponentValueRef RangeTest MethodAnalysis Time Performed AtPathologist SignatureBB Order ItemProduct status info to followPRESBYTERIAN ESPAÑOLA [facility]OSPITAL PATHOLOGY LABORATORYSpecimen (Source)Anatomical Location / Laterality Collection Method / VolumeCollection TimeReceived TimeBLOOD SPECIMEN / Unknown Narrative Authorizing ProviderResult TypeResult StatusAtrium Health Mercyrj RothmanC[facility] BLOOD BANKFinal ResultPerforming OrganizationAddressty/State/ZIP CodePhone Number [facility] PATH[facility] LABORATORY [address] [place] [phone] * PLASMA STATUS (06/29/2025 11:22 AM EST)ComponentValueRef RangeTest Method Analysis TimePerformed AtPathologist SignatureBlood Product DescriptionFAIRVIEW PARK [facility] PATHOLOGY LABORATORYBlood Product [id number] PATHOLOGY LABORATORYStatus Not usedPRESBYTERIAN ESPAÑOLA [facility]OSP[facility] PATHOLOGY LABORATORYBlood Product Unit [id number] PATHOLOGY LABORATORYBlood Product Unit [id number] PATHOLOGY LABORATORY Comment:A PosSpecimen (Source)Anatomical Location / LateralityCollection Method / VolumeCollection TimeReceived Time06/29/2025 11:22 AM EST Narrative Authorizing ProviderResult TypeResult StatusEvelyn Bronson [facility] BLOOD BANK Edited Result - FinalPerforming OrganizationAddressty/State/ZIP CodePhone Number [facility] PATH[facility] LABORATORY [address] [place] [phone] * PLASMA STATUS (06/29/2025 11:22 AM EST)ComponentValueRef RangeTest Method Analysis TimePerformed AtPathologist SignatureBlood Product DescriptionFAIRVIEW PARK HOSPITAL PATHOLOGY LABORATORYBlood Product [id number] PATHOLOGY LABORATORYStatus Not usedPRESBYTERIAN ESPAÑOLA [facility] PATHOLOGY LABORATORYBlood Product Unit [id number] PATHOLOGY LABORATORYBlood Product Unit [id number] PATHOLOGY LABORATORY Comment:A PosSpecimen (Source)Anatomical Location / LateralityCollection Method / VolumeCollection TimeReceived Time06/29/2025 11:22 AM EST Narrative Authorizing ProviderResult TypeResult StatusDelight Wong ESPARZA BLOOD BANK Edited Result - FinalPerforming OrganizationAddressCity/State/ZIP CodePhone Number [facility] PATH[facility] LABORATORY [address] [place] [phone] * (ABNORMAL) GLUCOSE, FINGERSTICK-IN OFFICE (06/29/2025 11:21 AM EST)Component ValueRef RangeTest MethodAnalysis TimePerformed AtPathologist Signature Glucose, POC53(LL)74 - 109 mg/dL06/29/2025 11:28 AM ESTNURSING GLUCOSE PROGRAM Comment:Notified RN YANIV OGLESBY
Specimen (Source)Anatomical Location / LateralityCollection Method / VolumeCollection TimeReceived TimeBloodBLOOD SPECIMEN / Dkygnop3406/29/2025 11:21 AM EST06/29/2025 11:28 AM EST Narrative Authorizing ProviderResult TypeResult StatusTo Be AssignedEC BACK OFFICE LABS Final ResultPerforming OrganizationAddressty/State/ZIP CodePhone Number NURSING GLUCOSE PROGRAM [address] [place] [phone] * GLUCOSE, FINGERSTICK-IN OFFICE (06/29/2025 7:12 AM EST)ComponentValueRef Range Test MethodAnalysis TimePerformed AtPathologist SignatureGlucose, TII07131 - 109 mg/dL06/29/2025 7:19 AM ESTNURSING GLUCOSE PROGRAMSpecimen (Source) Anatomical Location / LateralityCollection Method / VolumeCollection Time Received TimeBloodBLOOD SPECIMEN / Kdomiiz7106/29/2025 7:12 AM EST06/29/2025 7:19 AM EST Narrative Authorizing ProviderResult TypeResult StatusTo Be AssignedEC BACK OFFICE LABS Final ResultPerforming OrganizationAddressCity/State/ZIP CodePhone Number NURSING GLUCOSE PROGRAM [address] [place] [phone] * GLUCOSE, FINGERSTICK-IN OFFICE (06/29/2025 5:49 AM EST)ComponentValueRef Range Test MethodAnalysis TimePerformed AtPathologist SignatureGlucose, KZL79110 - 109 mg/dL06/29/2025 5:55 AM ESTNURSING GLUCOSE PROGRAMSpecimen (Source) Anatomical Location / LateralityCollection Method / VolumeCollection Time Received TimeBloodBLOOD SPECIMEN / Kmgyyef0206/29/2025 5:49 AM EST06/29/2025 5:55 AM EST Narrative Authorizing ProviderResult TypeResult StatusTo Be AssignedEC BACK OFFICE LABS Final ResultPerforming OrganizationAddressCity/State/ZIP CodePhone Number NURSING GLUCOSE PROGRAM [address] [place] [phone] * GLUCOSE, FINGERSTICK-IN OFFICE (06/29/2025 5:35 AM EST)ComponentValueRef Range Test MethodAnalysis TimePerformed AtPathologist SignatureGlucose, VLJ1961 - 109 mg/dL06/29/2025 5:41 AM ESTNURSING GLUCOSE PROGRAMSpecimen (Source) Anatomical Location / LateralityCollection Method / VolumeCollection Time Received TimeBloodBLOOD SPECIMEN / Bjhrzls4506/29/2025 5:35 AM EST06/29/2025 5:41 AM EST Narrative Authorizing ProviderResult TypeResult StatusTo Be AssignedEC BACK OFFICE LABS Final ResultPerforming OrganizationAddH[facility] Behavioral Healthcarety/State/ZIP CodePhone Number NURSING GLUCOSE PROGRAM [address] [place] [phone] * (ABNORMAL) GLUCOSE, FINGERSTICK-IN OFFICE (06/29/2025 5:21 AM EST)Component ValueRef RangeTest MethodAnalysis TimePerformed AtPathologist Signature Glucose, POC53(LL)74 - 109 mg/dL06/29/2025 5:27 AM ESTNURSING GLUCOSE PROGRAM Comment:Notified RN YANIV OGLESBY
Specimen (Source)Anatomical Location / LateralityCollection Method / VolumeCollection TimeReceived TimeBloodBLOOD SPECIMEN / Jihyqjv9806/29/2025 5:21 AM EST06/29/2025 5:27 AM EST Narrative Authorizing ProviderResult TypeResult StatusTo Be AssignedEC BACK OFFICE LABS Final ResultPerforming OrganizationAddressty/State/ZIP CodePhone Number NURSING GLUCOSE PROGRAM [address] [place] [phone] * (ABNORMAL) CBC WITH DIFFERENTIAL (06/29/2025 4:34 AM EST)ComponentValueRef RangeTest MethodAnalysis TimePerformed AtPathologist SignatureWBC9.54.5 - 11.5 K/uL06/29/2025 4:55 AM ESTPRESBYTERIAN [facility] PATH[facility] LABORATORYRBC3.67(L)4.50 - 5.90 M/uL 06/29/2025 4:[address] [facility] PATHOLOGY LABORATORYHemoglobin9.8(L)13.9 - 16.3 g/dL 06/29/2025 4:[address] [facility] PATHOLOGY JEYOEDVIOSVadcoliuni09.6(L)41.0 - 53.0 % 06/29/2025 4:[address] [facility] PATHOLOGY JVZFEXLJLKGAO2529 - 100 fL06/29/2025 4:[address] [facility] PATHOLOGY HHFIWQXKOKEYU17.726.0 - 34.0 pg06/29/2025 4:[address] [facility] PATHOLOGY WOMMTZQRQWIPPQ48.232.0 - 35.9 g/dL06/29/2025 4:[address] [facility] PATHOLOGY INXFNTENXNBcfsaanf111(H)150 - 400 K/uL06/29/2025 4:[address] [facility] PATHOLOGY LABORATORYRDW-CV15.9(H)11.5 - 14.5 %06/29/2025 4:[address] [facility] PATHOLOGY LABORATORYMPV9.57.5 - 11.2 fL06/29/2025 4:[address] [facility] PATHOLOGY BOYCXRMLPRPcekwffcvkk34.331.0 - 76.0 %06/29/2025 4:[address] [facility] PATHOLOGY LABORATORYNeutrophil #7.051.50 - 8.00 K/uL06/29/2025 4:[address] [facility] PATHOLOGY KVXJNOTVRJOwmyvkjchml16.5(L)24.0 - 44.0 %06/29/2025 4:[address] [facility] PATHOLOGY LABORATORYLymphocytes #1.281.00 - 4.80 K/uL06/29/2025 4:[address] [facility] PATHOLOGY JRAPHYZEZGOqaehqucz43.32.0 - 11.0 %06/29/2025 4:[address] [facility] PATHOLOGY LABORATORYMonocyte #0.980.20 - 1.00 K/uL06/29/2025 4:55 AM [facility] PATHOLOGY LABORATORYEosinophil1.20.1 - 4.0 %06/29/2025 4:[address] [facility] PATHOLOGY LABORATORYEosinophil #0.110.00 - 0.70 K/uL06/29/2025 4:[address] [facility] [facility] LABORATORYBasophils0.8<=1.9 %06/29/2025 4:[address] [facility] PATHOLOGY LABORATORY Basophil #0.070.00 - 0.20 K/uL06/29/2025 4:[address] [facility] PATHOLOGY LABORATORY Specimen (Source)Anatomical Location / LateralityCollection Method / Volume Collection TimeReceived TimeBloodBLOOD SPECIMEN / UnknownVenipuncture / Kldormc6706/29/2025 4:34 AM EST06/29/2025 4:47 AM EST Narrative Authorizing ProviderResult TypeResult StatusGhassacayla ESPARZA LAB ORDER ONLY Final ResultPerforming OrganizationAddressCity/State/ZIP CodePhone Number [facility] PATH[facility] [address] [place] [phone] * (ABNORMAL) HEPATIC FUNCTION PANEL (06/29/2025 4:34 AM EST)ComponentValueRef RangeTest MethodAnalysis TimePerformed AtPathologist SignatureAlbumin2.2(L)3.5 - 5.7 g/dL06/29/2025 6:[address] [facility] PATHOLOGY LABORATORYBilirubin, Direct0.05 0.03 - 0.18 mg/dL06/29/2025 6:[address] [facility] PATHOLOGY LABORATORYBilirubin, Total0.2(L)0.3 - 1.0 mg/dL06/29/2025 6:[address] [facility] PATHOLOGY LABORATORY Alkaline Suvmtimxxwa8016 - 104 IU/L108/30/2024 6:[address] [facility] PATHOLOGY LABORATORYALT (SGPT)<3(L)7 - 52 IU/L108/30/2024 6:[address] [facility] PATHOLOGY LABORATORYAST (SGOT)1313 - 39 IU/L108/30/2024 6:[address] [facility] PATHOLOGY LABORATORYProtein, Total4.4(L)6.1 - 7.9 g/dL06/29/2025 6:[address] [facility] PATHOLOGY LABORATORYSpecimen (Source)Anatomical Location / Laterality Collection Method / VolumeCollection TimeReceived TimeBloodBLOOD SPECIMEN / UnknownVenipuncture / Setgmwf3406/29/2025 4:34 AM EST06/29/2025 4:47 AM EST Narrative Authorizing ProviderResult TypeResult StatusCourtney Veronica MD98 GENERAL LABFinal ResultPerforming OrganizationAddressCity/State/ZIP CodePhone Number [facility] [address] [place] [address] * (ABNORMAL) BASIC METABOLIC PANEL (06/29/2025 4:34 AM EST)ComponentValueRef RangeTest MethodAnalysis TimePerformed AtPathologist CcqbprntlFvybgag22(LL)74 - 109 mg/dL06/29/2025 5:21 AM ESTS PATHOLOGY ZTRACSXIRQUdszzc647044 - 145 mmol/L108/30/2024 5:[address] [facility] PATHOLOGY LABORATORYPotassium3.1(L)3.5 - 5.0 mmol/L108/30/2024 5:[address] [facility] PATHOLOGY LABORATORYCarbon Qqsnozk0976 - 31 mmol/L108/30/2024 5:[address] [facility] PATHOLOGY OGIKSTQQYNFfuufneo234(H)98 - 107 mmol/L108/30/2024 5:[address] [facility] PATHOLOGY LABORATORYBlood Urea Zfvgcikj173 - 25 mg/dL06/29/2025 5:[address] [facility] PATHOLOGY LABORATORYCreatinine0.58(L)0.70 - 1.30 mg/dL06/29/2025 5:[address] [facility] PATHOLOGY LABORATORYCalcium6.0(L)8.6 - 10.3 mg/dL06/29/2025 5:[address] [facility] PATHOLOGY LABORATORYAnion Gap7(L)10 - 20 06/29/2025 5:[address] [facility] PATHOLOGY LABORATORYEstimated GFR (CKD-EPI)94>=60 mL/min/1.66xln1108/30/2024 5:21 AM ESTPRESBYTERIAN ESPAÑOLA [facility] PATHOLOGY LABORATORYComment: 2020 CKD EPI Equation using [...] Med 1 Vol. 385 Issue 19 Pages 9903-0288 Specimen (Source)Anatomical Location / LateralityCollection Method / Volume Collection TimeReceived TimeBloodBLOOD SPECIMEN / UnknownVenipuncture / Unknown 06/29/2025 4:34 AM EST06/29/2025 4:47 AM EST Narrative Authorizing ProviderResult TypeResult StatusSudarshan PONCE GENERAL LAB Final ResultPerforming OrganizationAddressCity/State/ZIP CodePhone Number [facility] PATH[facility] [address] [place] [address] * TYPE AND SCREEN (06/29/2025 4:34 AM EST)ComponentValueRef RangeTest Method Analysis TimePerformed AtPathologist SignatureABO Rh TypeA Pjwwksic76/19/2025 5:25 AM ESTS PATHOLOGY LABORATORYAb Screen NmielkCnmubewa21/19/2025 5:25 AM ESTS PATHOLOGY LABORATORYSpecimen Expiration Sbig2381479534713832/19/2025 5:25 AM ESTS PATHOLOGY LABORATORYABO Rh/Blanca/TXRX HistoryA Kwvmzygg47/19/2025 5:25 AM ESTS PATHOLOGY LABORATORYSpecimen (Source)Anatomical Location / LateralityCollection Method / VolumeCollection TimeReceived TimeBloodBLOOD SPECIMEN / UnknownVenipuncture / Lnicxdg8006/29/2025 4:34 AM EST06/29/2025 4:49 AM EST Narrative Authorizing ProviderResult TypeResult StatusEvelyn ESPARZA BLOOD BANKFinal ResultPerforming OrganizationAddressCity/State/ZIP CodePhone Number [facility] [address] [place] [address] * (ABNORMAL) PROTHROMBIN TIME AND INR (06/29/2025 4:34 AM EST)ComponentValueRef RangeTest MethodAnalysis TimePerformed AtPathologist AanbjjkxoZyfjoth74.4(H) 9.7 - 12.9 sec06/29/2025 4:57 AM ESTS PATHOLOGY LABORATORYINR2.71(H)0.90 - 1.10108/30/2024 4:[address] [facility] PATHOLOGY LABORATORYSpecimen (Source)Anatomical Location / LateralityCollection Method / VolumeCollection TimeReceived Time BloodBLOOD SPECIMEN / UnknownVenipuncture / Nqxnijt5306/29/2025 4:34 AM EST 06/29/2025 4:44 AM EST Narrative Authorizing ProviderResult TypeResult Oral PONCE GENERAL LAB Final ResultPerforming OrganizationAddressCity/State/ZIP CodePhone Number [facility] [address] [place] [address] * PARTIAL THROMBOPLASTIN TIME (06/29/2025 4:34 AM EST)ComponentValueRef Range Test MethodAnalysis TimePerformed AtPathologist WqmvhqncuaRYJ0327 - 37 sec 06/29/2025 4:[address] [facility] PATHOLOGY LABORATORYSpecimen (Source)Anatomical Location / LateralityCollection Method / VolumeCollection TimeReceived Time BloodBLOOD SPECIMEN / UnknownVenipuncture / Hzyiujf4306/29/2025 4:34 AM EST 06/29/2025 4:44 AM EST Narrative Authorizing ProviderResult TypeResult StatusEvelyn PONCE GENERAL LAB Final ResultPerforming OrganizationAddressCity/State/ZIP CodePhone Number [facility] PATH[facility] LABORATORY [address] [place] [address] * (ABNORMAL) PHOSPHORUS (06/29/2025 4:34 AM EST)ComponentValueRef RangeTest MethodAnalysis TimePerformed AtPathologist SignaturePhosphorus, Serum2.4(L)2.5 - 5.0 mg/dL06/29/2025 6:[address] [facility] PATHOLOGY LABORATORYSpecimen (Source) Anatomical Location / LateralityCollection Method / VolumeCollection Time Received TimeBloodBLOOD SPECIMEN / UnknownVenipuncture / Geoahda7606/29/2025 4:34 AM EST06/29/2025 4:47 AM EST Narrative Authorizing ProviderResult TypeResult StatusCourtney PONCE GENERAL LABFinal ResultPerforming OrganizationAddressCity/State/ZIP CodePhone Number [facility] [address] [place] [address] * (ABNORMAL) GLUCOSE, FINGERSTICK-IN OFFICE (06/28/2025 9:36 PM EST)Component ValueRef RangeTest MethodAnalysis TimePerformed AtPathologist Signature Glucose, MUF859(H)74 - 109 mg/dL06/28/2025 9:52 PM ESTNURSING GLUCOSE PROGRAM Specimen (Source)Anatomical Location / LateralityCollection Method / Volume Collection TimeReceived TimeBloodBLOOD SPECIMEN / Snvvmwv8706/28/2025 9:36 PM EST06/28/2025 9:52 PM EST Narrative Authorizing ProviderResult TypeResult StatusTo Be AssignedEC BACK OFFICE LABS Final ResultPerforming OrganizationAddressCity/State/ZIP CodePhone Number NURSING GLUCOSE PROGRAM [address] [place] [address] * XR T-SPINE 3 VIEWS (06/28/2025 7:13 [...] andLAT ASSOCIATED DIAGNOSIS: ORDERING PROVIDER: JOSEPH WESTON TECHNSHAN NOTE: COMPARISON: MR T-SPINE W/+W/O 06/27/2025 3:00 PM IMPRESSION: * Stable mild compression deformity involving the superior endplate ofT10 similar to the previous study. * Stable degenerative changes. * Stable wedge deformity of T5 * Small bilateral pleural effusions. * Partially imaged pacemaker. MACRO: None Authorizing ProviderResult TypeResult [facility] PhoenixJoseph Weston PA-CEC DIAGNOSTIC X-RAYFinal Result * XR [...] W/+W/O 06/27/2025 3:01 PM Procedure Note Jose Roberto Monte MD - 06/28/2025 EXAMINATION: XR L-SPINE [...] Generalized osteopenia. MACRO: None Authorizing ProviderResult TypeResult Valery Weston PA-CEC DIAGNOSTIC X-RAYFinal Result * (ABNORMAL) GLUCOSE, FINGERSTICK-IN OFFICE (06/28/2025 4:49 PM EST)Component ValueRef RangeTest MethodAnalysis TimePerformed AtPathologist Signature Glucose, FTH183(H)74 - 109 mg/dL06/28/2025 4:59 PM ESTNURSING GLUCOSE PROGRAM Specimen (Source)Anatomical Location / LateralityCollection Method / Volume Collection TimeReceived TimeBloodBLOOD SPECIMEN / Nubhcca3206/28/2025 4:49 PM EST06/28/2025 4:59 PM EST Narrative Authorizing ProviderResult TypeResult StatusTo Be AssignedEC BACK OFFICE LABS Final ResultPerforming OrganizationAddressCity/State/ZIP CodePhone Number NURSING GLUCOSE PROGRAM [address] [place] [phone] * BLOOD CULTURE (06/28/2025 12:37 PM EST)ComponentValueRef RangeTest Method Analysis TimePerformed AtPathologist SignatureBlood CultureNo Vlsutl2507/03/2025 1:00 PM ESTPRES[facility] PATHOLOGY LABORATORYSpecimen (Source)Anatomical Location / LateralityCollection Method / VolumeCollection TimeReceived TimeBlood PERIPHERAL BLOOD SPECIMEN / UnknownVenipuncture / Uowvuoj1106/28/2025 12:37 PM EST06/28/2025 12:46 PM EST Narrative Authorizing ProviderResult TypeResult StatusDelight [facility] MDEC MICROBIOLOGY Final ResultPerforming OrganizationAddressty/State/ZIP CodePhone Number [facility]AT[facility] [address] [place] [phone] * (ABNORMAL) GLUCOSE, FINGERSTICK-IN OFFICE (06/28/2025 11:18 AM EST)Component ValueRef RangeTest MethodAnalysis TimePerformed AtPathologist Signature Glucose, WLY206(H)74 - 109 mg/dL06/28/2025 11:24 AM ESTNURSING GLUCOSE PROGRAM Specimen (Source)Anatomical Location / LateralityCollection Method / Volume Collection TimeReceived TimeBloodBLOOD SPECIMEN / Mlgsarv3506/28/2025 11:18 AM EST06/28/2025 11:24 AM EST Narrative Authorizing ProviderResult TypeResult StatusTo Be AssignedEC BACK OFFICE LABS Final ResultPerforming OrganizationAddressCity/State/ZIP CodePhone Number NURSING GLUCOSE PROGRAM [address] [place] [phone] * (ABNORMAL) GLUCOSE, FINGERSTICK-IN OFFICE (06/28/2025 7:46 AM EST)Component ValueRef RangeTest MethodAnalysis TimePerformed AtPathologist Signature Glucose, MQG165(H)74 - 109 mg/dL06/28/2025 7:52 AM ESTNURSING GLUCOSE PROGRAM Specimen (Source)Anatomical Location / LateralityCollection Method / Volume Collection TimeReceived TimeBloodBLOOD SPECIMEN / Jyipvjx1206/28/2025 7:46 AM EST06/28/2025 7:52 AM EST Narrative Authorizing ProviderResult TypeResult StatusTo Be AssignedEC BACK OFFICE LABS Final ResultPerforming OrganizationAddressCity/State/ZIP CodePhone Number NURSING GLUCOSE PROGRAM [address] [place] [address] * BLOOD CULTURE (06/28/2025 5:58 AM EST)ComponentValueRef RangeTest Method Analysis TimePerformed AtPathologist SignatureBlood CultureNo Ayuziz3707/03/2025 7:[address] [facility] PATHOLOGY LABORATORYSpecimen (Source)Anatomical Location / LateralityCollection Method / VolumeCollection TimeReceived TimeBlood PERIPHERAL BLOOD SPECIMEN / UnknownVenipuncture / Goaaghf7306/28/2025 5:58 AM EST06/28/2025 6:06 AM EST Narrative Authorizing ProviderResult TypeResult StatusJeramana Veronica MDEC MICROBIOLOGYFinal ResultPerforming OrganizationAddressCity/State/ZIP CodePhone Number [facility] PATH[facility]ORAT[facility] [address] [place] [address] * (ABNORMAL) CBC WITH DIFFERENTIAL (06/28/2025 1:35 AM EST)ComponentValueRef RangeTest MethodAnalysis TimePerformed AtPathologist SignatureWBC7.04.5 - 11.5 K/uL06/28/2025 2:[address] [facility] PATHOLOGY LABORATORYRBC3.31(L)4.50 - 5.90 M/uL 06/28/2025 2:[address] [facility] PATHOLOGY LABORATORYHemoglobin8.8(L)13.9 - 16.3 g/dL 06/28/2025 2:[address] [facility] PATHOLOGY TWMTPQPJLTAgooeulasj92.6(L)41.0 - 53.0 % 06/28/2025 2:[address] [facility] PATHOLOGY CIHNVPZCTEXYU2965 - 100 fL06/28/2025 2:[address] [facility] PATHOLOGY PQICFKMIGJXLA69.626.0 - 34.0 pg06/28/2025 2:[address] [facility] PATHOLOGY WVPTDYLUTIWSUM97.032.0 - 35.9 g/dL06/28/2025 2:[address] [facility] PATHOLOGY FGXDJIMLNAZvxldvtu693(H)150 - 400 K/uL06/28/2025 2:[address] [facility] PATHOLOGY LABORATORYRDW-CV15.3(H)11.5 - 14.5 %06/28/2025 2:[address] [facility] PATHOLOGY LABORATORYMPV9.97.5 - 11.2 fL06/28/2025 2:[address] [facility] PATHOLOGY KUAZNIBWIPMmsplqrmebx09.931.0 - 76.0 %06/28/2025 2:[address] [facility] PATHOLOGY LABORATORYNeutrophil #5.011.50 - 8.00 K/uL06/28/2025 2:[address] [facility] PATHOLOGY WTGOYHJDNPWuzhwyqhhnp98.5(L)24.0 - 44.0 %06/28/2025 2:[address] [facility] PATHOLOGY LABORATORYLymphocytes #0.94(L)1.00 - 4.80 K/uL06/28/2025 2:[address] [facility] PATHOLOGY GMUXXMICPILncfzyizy19.0(H)2.0 - 11.0 %06/28/2025 2:[address] [facility] PATHOLOGY LABORATORYMonocyte #0.840.20 - 1.00 K/uL06/28/2025 2:[address] [facility] PATHOLOGY LABORATORYEosinophil1.80.1 - 4.0 %06/28/2025 2:[address] [facility] PATHOLOGY LABORATORYEosinophil #0.130.00 - 0.70 K/uL06/28/2025 2:[address] [facility] PATHOLOGY LABORATORYBasophils0.7<=1.9 %06/28/2025 2:[address] [facility] PATHOLOGY LABORATORYBasophil #0.050.00 - 0.20 K/uL06/28/2025 2:[address] [facility] PATHOLOGY LABORATORYSpecimen (Source)Anatomical Location / LateralityCollection Method / VolumeCollection TimeReceived TimeBloodBLOOD SPECIMEN / UnknownVenipuncture / Azcuqad1706/28/2025 1:35 AM EST06/28/2025 2:00 AM EST Narrative Authorizing ProviderResult TypeResult StatusSudarshan ESPARZA LAB ORDER ONLY Final ResultPerforming OrganizationAddressCity/State/ZIP CodePhone Number [facility] PATH[facility]ORATORY [address] [place] [address] * (ABNORMAL) BASIC METABOLIC PANEL (06/28/2025 1:35 AM EST)ComponentValueRef RangeTest MethodAnalysis TimePerformed AtPathologist EwedcomuvRiaiypw300(H)74 - 109 mg/dL06/28/2025 2:34 AM ESTPRES[facility] ZTIBLIJXCUDmsmav125(L)136 - 145 mmol/L108/29/2024 2:[address] [facility] PATHOLOGY LABORATORYPotassium4.63.5 - 5.0 mmol/L108/29/2024 2:[address] [facility] PATHOLOGY LABORATORYCarbon Ujzppay7154 - 31 mmol/L108/29/2024 2:[address] [facility] PATHOLOGY WQUMPPSUBAGmdnkxvk21004 - 107 mmol/L 06/28/2025 2:[address] [facility] PATHOLOGY LABORATORYBlood Urea Rugposkw362 - 25 mg/dL06/28/2025 2:[address] [facility] PATHOLOGY LABORATORYCreatinine0.950.70 - 1.30 mg/dL06/28/2025 2:[address] [facility] PATHOLOGY LABORATORYCalcium8.0(L)8.6 - 10.3 mg/dL06/28/2025 2:[address] [facility] PATHOLOGY LABORATORYAnion Rkd5687 - 20 06/28/2025 2:[address] [facility] PATHOLOGY LABORATORYEstimated GFR (CKD-EPI)77>=60 mL/min/1.11pua3408/29/2024 2:[address] [facility] PATHOLOGY LABORATORYComment: 2020 CKD EPI [...] Med 2021 Vol. 385 Issue 19 Pages 1289-5854 Specimen (Source)Anatomical Location / LateralityCollection Method / Volume Collection TimeReceived TimeBloodBLOOD SPECIMEN / UnknownVenipuncture / Unknown 06/28/2025 1:35 AM EST06/28/2025 2:00 AM EST Narrative Authorizing ProviderResult TypeResult StatusSudarshan PONCE GENERAL LAB Final ResultPerforming OrganizationAddressCity/State/ZIP CodePhone Number [facility] PATH[facility] LABORATORY [address] [place] [address] * (ABNORMAL) IRON AND TIBC (06/28/2025 1:35 AM EST)ComponentValueRef RangeTest MethodAnalysis TimePerformed AtPathologist QlwcqmpbxPvdi74(L)50 - 212 ug/dL 06/28/2025 12:[address] [facility] PATHOLOGY LABORATORYIron Saturation5(L)20 - 55 % 06/28/2025 12:[address] [facility] PATHOLOGY CZUAFQXAQTMEZL962407 - 300 ug/mL 06/28/2025 12:[address] [facility] PATHOLOGY RIBFLEHHGOPxwhtefyxov807(L)203 - 362 mg/dL06/28/2025 12:[address] [facility] PATHOLOGY LABORATORYSpecimen (Source) Anatomical Location / LateralityCollection Method / VolumeCollection Time Received TimeBloodBLOOD SPECIMEN / UnknownVenipuncture / Phnfpmx4106/28/2025 1:35 AM EST06/28/2025 2:00 AM EST Narrative Authorizing ProviderResult TypeResult StatusEvelyn PONCE GENERAL LAB Final ResultPerforming OrganizationAddressCity/State/ZIP CodePhone Number [facility] PATH[facility] LABORATORY [address] [place] [address] * FERRITIN (06/28/2025 1:35 AM EST)ComponentValueRef RangeTest MethodAnalysis TimePerformed AtPathologist MwinesougFnefewih336.223.9 - 336.2 ng/mL06/28/2025 12:[address] [facility] PATHOLOGY LABORATORYSpecimen (Source)Anatomical Location / LateralityCollection Method / VolumeCollection TimeReceived TimeBloodBLOOD SPECIMEN / UnknownVenipuncture / Mtygkkv1406/28/2025 1:35 AM EST06/28/2025 2:00 AM EST Narrative Authorizing ProviderResult TypeResult StatusEvelyn PONCE GENERAL LAB Final ResultPerforming OrganizationAddressCity/State/ZIP CodePhone Number S PATHOLOGY LABORATORY [address] [place] [phone] * (ABNORMAL) GLUCOSE, FINGERSTICK-IN OFFICE (06/27/2025 10:12 PM EST)Component ValueRef RangeTest MethodAnalysis TimePerformed AtPathologist Signature Glucose, XBX200(H)74 - 109 mg/dL06/27/2025 10:18 PM ESTNURSING GLUCOSE PROGRAM Specimen (Source)Anatomical Location / LateralityCollection Method / Volume Collection TimeReceived TimeBloodBLOOD SPECIMEN / Kdxnwbz2406/27/2025 10:12 PM EST06/27/2025 10:18 PM EST Narrative Authorizing ProviderResult TypeResult StatusTo Be AssignedEC BACK OFFICE LABS Final ResultPerforming OrganizationAddressCity/State/ZIP CodePhone Number NURSING GLUCOSE PROGRAM [address] [place] [phone] * (ABNORMAL) GLUCOSE, FINGERSTICK-IN OFFICE (06/27/2025 4:02 PM EST)Component ValueRef RangeTest MethodAnalysis TimePerformed AtPathologist Signature Glucose, JSO412(H)74 - 109 mg/dL06/27/2025 4:09 PM ESTNURSING GLUCOSE PROGRAM Specimen (Source)Anatomical Location / LateralityCollection Method / Volume Collection TimeReceived TimeBloodBLOOD SPECIMEN / Edjpzuj0606/27/2025 4:02 PM EST06/27/2025 4:09 PM EST Narrative Authorizing ProviderResult TypeResult StatusTo Be AssignedEC BACK OFFICE LABS Final ResultPerforming OrganizationAddHaven Behavioral Healthcarety/State/ZIP CodePhone Number NURSING GLUCOSE PROGRAM [address] [place] [phone] * MR L-SPINE W/+W/O (06/27/2025 2:50 PM [...] pain, less than 6 weeks ORDERING PROVIDER: [facility] [employer] NOTE: ??Pacemaker patient. ??Best imaging obtainable [...] study is limited and suboptimal with poor menziy-uk-aveth ratio. Incomplete fat-saturated imaging. Numbering: The most [...] pain, less than 6 weeks ORDERING PROVIDER: [facility] [employer] NOTE: Pacemaker patient. Best imaging obtainable due topatient anatomy and patient discomfort. Repeats performed as possible. COMPARISON: None TECHNIQUE: Patient questionnaire was completed and was reviewed by MRIpersonnel prior to the patient entering the scanner. Multiplanar,multisequence MR imaging of the lumbar spine was performed with andwithout intravenous contrast. with and without. INTRA-PROCEDURE MEDS: Gadoterate Meglumine (DOTAREM) 10 MMOL/20ML lnifsxvw13 mL Route: Intravenous FINDINGS: The study is limited and suboptimal with poor stztxw-hc-dnkjq ratio.Incomplete fat-saturated imaging. Numbering: The most inferior [...] less likely. MACRO: None Authorizing ProviderResult TypeResult StatusAnimas [facility] MRIFinal Result * MR T-SPINE W/+W/O (06/27/2025 2:50 PM [...] Acute back pain r/o discitis ORDERING PROVIDER: [facility] [employer] NOTE: ??Pacemaker patient. ??Best imaging obtainable [...] effacement worse at T6-T7. Procedure Note Gray Banegas DO - 06/27/2025 EXAMINATION: MR T-SPINE W/+W/OPRO 06/27/2025 02:50 PM CLINICAL HISTORY: Acute back pain r/o discitis ASSOCIATED DIAGNOSIS: Acute back pain r/o discitis ORDERING PROVIDER: [facility] [employer] NOTE: Pacemaker patient. Best imaging obtainable [...] INTRA-PROCEDURE MEDS: Gadoterate Meglumine (DOTAREM) 10 MMOL/20ML qdmpysax28 mL Route: Intravenous FINDINGS: The study has [...] CT. MACRO: None Authorizing ProviderResult TypeResult StatusDelight Mungoma MDEC MRIFinal Result * (ABNORMAL) GLUCOSE, FINGERSTICK-IN OFFICE (06/27/2025 8:20 AM EST)Component ValueRef RangeTest MethodAnalysis TimePerformed AtPathologist Signature Glucose, LIL323(H)74 - 109 mg/dL06/27/2025 8:26 AM ESTNURSING GLUCOSE PROGRAM Specimen (Source)Anatomical Location / LateralityCollection Method / Volume Collection TimeReceived TimeBloodBLOOD SPECIMEN / Fcdwkay0606/27/2025 8:20 AM EST06/27/2025 8:26 AM EST Narrative Authorizing ProviderResult TypeResult StatusTo Be AssignedEC BACK OFFICE LABS Final ResultPerforming OrganizationAddressCity/State/ZIP CodePhone Number NURSING GLUCOSE PROGRAM [facility] [place] [address] * (ABNORMAL) CBC WITH DIFFERENTIAL (06/27/2025 5:43 AM EST)ComponentValueRef RangeTest MethodAnalysis TimePerformed AtPathologist SignatureWBC7.94.5 - 11.5 K/uL06/27/2025 6:[address] [facility] PATHOLOGY LABORATORYRBC3.38(L)4.50 - 5.90 M/uL 06/27/2025 6:22 AM [facility] PATHOLOGY LABORATORYHemoglobin9.1(L)13.9 - 16.3 g/dL 06/27/2025 6:[address] [facility] PATHOLOGY IPNQQHTZUFEtuxovugnf43.1(L)41.0 - 53.0 % 06/27/2025 6:22 AM [facility] PATHOLOGY IRPIKZZXTOPSM1422 - 100 fL06/27/2025 6:22 AM [facility] PATHOLOGY JAXZWPPFANVTZ34.826.0 - 34.0 pg06/27/2025 6:22 AM [facility] PATHOLOGY BUFWUJWDFJXIPN47.532.0 - 35.9 g/dL06/27/2025 6:22 AM [facility] PATHOLOGY GEZSQZYDIUTlbtyllb616(H)150 - 400 K/uL06/27/2025 6:[address] [facility] PATHOLOGY LABORATORYRDW-CV15.3(H)11.5 - 14.5 %06/27/2025 6:22 AM [facility] PATHOLOGY LUKNRSGPJLKFQ42.07.5 - 11.2 fL06/27/2025 6:22 AM [facility] PATHOLOGY TMVKZWKQNOOlpzdtcmylk92.631.0 - 76.0 %06/27/2025 6:[address] [facility] PATHOLOGY LABORATORYNeutrophil #5.871.50 - 8.00 K/uL06/27/2025 6:[address] [facility] PATHOLOGY DJHVHVAWECIcxdpryxpha96.9(L)24.0 - 44.0 %06/27/2025 6:[address] [facility] PATHOLOGY LABORATORYLymphocytes #0.86(L)1.00 - 4.80 K/uL06/27/2025 6:[address] [facility] PATHOLOGY HBJIKUXUWKDugphkwux73.3(H)2.0 - 11.0 %06/27/2025 6:[address] [facility] PATHOLOGY LABORATORYMonocyte #0.970.20 - 1.00 K/uL06/27/2025 6:[address] [facility] PATHOLOGY LABORATORYEosinophil1.70.1 - 4.0 %06/27/2025 6:[address] [facility] PATHOLOGY LABORATORYEosinophil #0.130.00 - 0.70 K/uL06/27/2025 6:[address] [facility] PATHOLOGY LABORATORYBasophils0.6<=1.9 %06/27/2025 6:[address] [facility] PATHOLOGY LABORATORYBasophil #0.040.00 - 0.20 K/uL06/27/2025 6:[address] [facility] PATHOLOGY LABORATORYSpecimen (Source)Anatomical Location / LateralityCollection Method / VolumeCollection TimeReceived TimeBloodBLOOD SPECIMEN / UnknownVenipuncture / [id number]/27/2025 5:43 AM EST06/27/2025 6:10 AM EST Narrative Authorizing ProviderResult TypeResult StatusGhdonnie ESPARZA LAB ORDER ONLY Final ResultPerforming OrganizationAddressCity/State/ZIP CodePhone Number [facility] [address] [place] [address] * (ABNORMAL) BASIC METABOLIC PANEL (06/27/2025 5:43 AM EST)ComponentValueRef RangeTest MethodAnalysis TimePerformed AtPathologist JhipjkzsjJlydwls141(H)74 - 109 mg/dL06/27/2025 7:[address] [facility] PATHOLOGY UJEWJCWYOWMageow652(L)136 - 145 mmol/L108/28/2024 7:[address] [facility] PATHOLOGY LABORATORYPotassium4.23.5 - 5.0 mmol/L108/28/2024 7:[address] [facility] PATHOLOGY LABORATORYCarbon Gyyqwot6159 - 31 mmol/L108/28/2024 7:[address] [facility] PATHOLOGY TLHYXDQKOWRzdivdrq68174 - 107 mmol/L 06/27/2025 7:[address] [facility] PATHOLOGY LABORATORYBlood Urea Xeywmyxx419 - 25 mg/dL06/27/2025 7:[address] [facility] PATHOLOGY LABORATORYCreatinine0.920.70 - 1.30 mg/dL06/27/2025 7:[address] [facility] PATHOLOGY LABORATORYCalcium8.1(L)8.6 - 10.3 mg/dL06/27/2025 7:[address] [facility] PATHOLOGY LABORATORYAnion Vyh6047 - 20 06/27/2025 7:[address] [facility] PATHOLOGY LABORATORYEstimated GFR (CKD-EPI)80>=60 mL/min/1.59wtw2608/28/2024 7:[address] [facility] PATHOLOGY LABORATORYComment: 2020 CKD EPI [...] Med 2021 Vol. 385 Issue 19 Pages 6940-0035 Specimen (Source)Anatomical Location / LateralityCollection Method / Volume Collection TimeReceived TimeBloodBLOOD SPECIMEN / UnknownVenipuncture / Unknown 06/27/2025 5:43 AM EST06/27/2025 6:10 AM EST Narrative Authorizing ProviderResult TypeResult StatusGhdonnie Lovett MD98 GENERAL LAB Final ResultPerforming OrganizationAddressCity/State/ZIP CodePhone Number [facility] PATHOLOG[facility] LABORATORY [address] [place] [phone] * (ABNORMAL) HAPTOGLOBIN (06/27/2025 5:43 AM EST)ComponentValueRef RangeTest MethodAnalysis TimePerformed AtPathologist ExexgdiqyHcviwftlphm144(H)44 - 215 mg/dL06/27/2025 7:35 AM ESTPRES[facility] PATHOLOGY LABORATORYSpecimen (Source)Anatomical Location / LateralityCollection Method / VolumeCollection TimeReceived Time BloodBLOOD SPECIMEN / UnknownVenipuncture / Dibubon0206/27/2025 5:43 AM EST 06/27/2025 6:10 AM EST Narrative Authorizing ProviderResult TypeResult StatusTiger Lornawv ROSARIO [facility] Final ResultPerforming OrganizationAddressCity/State/ZIP CodePhone Number [facility] PATH[facility]ORATORY [address] [place] [phone] * LDH (06/27/2025 5:43 AM EST)ComponentValueRef RangeTest MethodAnalysis Time Performed AtPathologist OlqmzspfvRL371470 - 271 IU/L108/28/2024 6:43 AM ESTPRES[facility] PATHOLOGY LABORATORYSpecimen (Source)Anatomical Location / Laterality Collection Method / VolumeCollection TimeReceived TimeBloodBLOOD SPECIMEN / UnknownVenipuncture / Ofsskam9506/27/2025 5:43 AM EST06/27/2025 6:10 AM EST Narrative Authorizing ProviderResult TypeResult [facility] Final ResultPerforming OrganizationAddressty/State/ZIP CodePhone Number [facility] PATH[facility]OR[facility]ORY [address] [place] [address] * (ABNORMAL) IRON AND TIBC (06/27/2025 5:43 AM EST)ComponentValueRef RangeTest MethodAnalysis TimePerformed AtPathologist SxtzcytmwOrkl10(L)50 - 212 ug/dL 06/27/2025 7:[address] [facility] PATHOLOGY LABORATORYIron Saturation8(L)20 - 55 % 06/27/2025 7:07 AM ESTPRES[facility] HZIRKDKRGYCBFL652555 - 300 ug/mL06/27/2025 7:[address] [facility] PATHOLOGY MVLZDKBUOLTfmvjahaflz557(L)203 - 362 mg/dL06/27/2025 7:[address] [facility] PATHOLOGY LABORATORYSpecimen (Source)Anatomical Location / LateralityCollection Method / VolumeCollection TimeReceived TimeBloodBLOOD SPECIMEN / UnknownVenipuncture / Elkypui9106/27/2025 5:43 AM EST06/27/2025 6:10 AM EST Narrative Authorizing ProviderResult TypeResult Oral [facility] Final ResultPerforming OrganizationAddressty/State/ZIP CodePhone Number [facility] PATH[facility] LABORATORY [address] [place] [phone] * FOLIC ACID (06/27/2025 5:43 AM EST)ComponentValueRef RangeTest MethodAnalysis TimePerformed AtPathologist SignatureFolic Acid, Serum19.05.9 - 24.7 ng/mL 06/27/2025 7:07 AM ESTS PATHOLOGY LABORATORYSpecimen (Source)Anatomical Location / LateralityCollection Method / VolumeCollection TimeReceived Time BloodBLOOD SPECIMEN / UnknownVenipuncture / Yuaohbh4006/27/2025 5:43 AM EST 06/27/2025 6:10 AM EST Narrative Authorizing ProviderResult TypeResult Oral [facility] Final ResultPerforming OrganizationAddressCity/State/ZIP CodePhone Number [facility] PATH[facility]OR[facility] [address] [place] [phone] * FERRITIN (06/27/2025 5:43 AM EST)ComponentValueRef RangeTest MethodAnalysis TimePerformed AtPathologist StzemtkyxScxqqeuv943.023.9 - 336.2 ng/mL06/27/2025 7:07 AM ESTS PATHOLOGY LABORATORYSpecimen (Source)Anatomical Location / LateralityCollection Method / VolumeCollection TimeReceived TimeBloodBLOOD SPECIMEN / UnknownVenipuncture / Jxdgjbz3106/27/2025 5:43 AM EST06/27/2025 6:10 AM EST Narrative Authorizing ProviderResult TypeResult StatusEvelyn [facility] Final ResultPerforming OrganizationAddHaven Behavioral Healthcarety/State/ZIP CodePhone Number [facility] PATHOLOG[facility] LABORATORY [address] [place] [phone] * (ABNORMAL) VITAMIN B12 (CYANOCOBALAMIN) (06/27/2025 5:43 AM EST)ComponentValue Ref RangeTest MethodAnalysis TimePerformed AtPathologist SignatureVitamin B12 971(H)180 - 914 pg/mL06/27/2025 7:07 AM ESTS PATHOLOGY LABORATORYSpecimen (Source)Anatomical Location / LateralityCollection Method / VolumeCollection TimeReceived TimeBloodBLOOD SPECIMEN / UnknownVenipuncture / Vudbjob3206/27/2025 5:43 AM EST06/27/2025 6:10 AM EST Narrative [facility] PATH[facility] - 06/27/2025 7:07 AM EST Deficient: <= 145 pg/mL Insufficient: 145 - 180 pg/mL Sufficient: 180 - 914 pg/mL ?? Authorizing ProviderResult TypeResult StatusEvelyn [facility] Final ResultPerforming OrganizationAddressty/State/ZIP CodePhone Number [facility] PATH[facility]ORATORY [address] [place] [phone] * (ABNORMAL) GLUCOSE, FINGERSTICK-IN OFFICE (06/26/2025 9:20 PM EST)Component ValueRef RangeTest MethodAnalysis TimePerformed AtPathologist Signature Glucose, CUA506(H)74 - 109 mg/dL06/26/2025 9:26 PM ESTNURSING GLUCOSE PROGRAM Specimen (Source)Anatomical Location / LateralityCollection Method / Volume Collection TimeReceived TimeBloodBLOOD SPECIMEN / Jrwdrfe8806/26/2025 9:20 PM EST06/26/2025 9:26 PM EST Narrative Authorizing ProviderResult TypeResult StatusTo Be AssignedEC BACK OFFICE LABS Final ResultPerforming OrganizationAddWell[facility]/ZIP CodePhone Number NURSING GLUCOSE PROGRAM [address] [place] [phone] * (ABNORMAL) GLUCOSE, FINGERSTICK-IN OFFICE (06/26/2025 4:31 PM EST)Component ValueRef RangeTest MethodAnalysis TimePerformed AtPathologist Signature Glucose, DAA599(H)74 - 109 mg/dL06/26/2025 4:37 PM ESTNURSING GLUCOSE PROGRAM Specimen (Source)Anatomical Location / LateralityCollection Method / Volume Collection TimeReceived TimeBloodBLOOD SPECIMEN / Vzohqrc0706/26/2025 4:31 PM EST06/26/2025 4:37 PM EST Narrative Authorizing ProviderResult TypeResult StatusTo Be AssignedEC BACK OFFICE LABS Final ResultPerforming OrganizationAddHaven Behavioral Healthcarety/State/ZIP CodePhone Number NURSING GLUCOSE PROGRAM [address] [place] [phone] * (ABNORMAL) BLOOD CULTURE (06/26/2025 3:09 PM EST)ComponentValueRef RangeTest MethodAnalysis TimePerformed AtPathologist SignatureBlood CulturePositive Culture Report(A)07/01/2025 10:[address] [facility] PATHOLOGY LABORATORYBlood CultureAnaerobic bottle yields Staphylococcus aureus DORON 07/01/2025 10:[address] [facility] PATHOLOGY LABORATORYGram StainAnaerobic bottle yields Gram Positive Cocci In Mzrkkfrz03/21/2025 10:[address] [facility] PATHOLOGY LABORATORY Specimen (Source)Anatomical Location / LateralityCollection Method / Volume Collection TimeReceived TimeBloodPERIPHERAL BLOOD SPECIMEN / UnknownVenipuncture / Jpwnjyh0306/26/2025 3:09 PM EST06/26/2025 3:18 PM EST Narrative OrganismAntibioticMethodSusceptibilityStaphylococcus aureusDaptomycinMIC 0.25 DORON: Sensitive Staphylococcus aureusLinezolidMIC 2 DORON: Sensitive Staphylococcus aureusOxacillinMIC <=0.25 DORON: Sensitive Staphylococcus aureusTrimethoprim + SulfamethoxazoleMIC <=10 DORON: Sensitive Staphylococcus aureusVancomycinMIC <=0.5 DORON: Sensitive Authorizing ProviderResult TypeResult [facility]Anim[facility] Final ResultPerforming OrganizationAddressCity/State/ZIP CodePhone Number [facility] PATH[facility]ORATORY [address] [place] [phone] * BLOOD CULTURE (06/26/2025 3:00 PM EST)ComponentValueRef RangeTest Method Analysis TimePerformed AtPathologist SignatureBlood CultureNo Huhjvu6307/01/2025 4:[address] [facility] PATHOLOGY LABORATORYSpecimen (Source)Anatomical Location / LateralityCollection Method / VolumeCollection TimeReceived TimeBlood PERIPHERAL BLOOD SPECIMEN / UnknownVenipuncture / Cyjehle8506/26/2025 3:00 PM EST06/26/2025 3:18 PM EST Narrative [facility] PATH[facility] LAB[facility] - 07/01/2025 4:02 PM EST The results may be compromised due to inadequate volume of fluid received. A negative result does not rule out an infectious process. Authorizing ProviderResult TypeResult StatusAnim[facility] MICROBIOLOGY Final ResultPerforming OrganizationAddressCity/State/ZIP CodePhone Number [facility] PATH[facility]ORAT[facility] [address] [place] [address] * OCCULT BLOOD, STOOL (06/26/2025 11:39 AM EST)ComponentValueRef RangeTest MethodAnalysis TimePerformed AtPathologist SignatureOccult Blood, Stool GteylyubRttwirta24/16/2025 12:33 PM ESTS PATHOLOGY LABORATORYCollection Date 06/26/2512 12:33 PM ESTPRESBYTERIAN [facility] PATHOLOGY LABORATORYSpecimen (Source) Anatomical Location / LateralityCollection Method / VolumeCollection Time Received TimeStoolSTOOL SPECIMEN / Dyvlhrt8706/26/2025 11:39 AM EST06/26/2025 11:45 AM EST Narrative Authorizing ProviderResult TypeResult StatusSudarshan Lovett MD98 GENERAL LAB Final ResultPerforming OrganizationAddressCity/State/ZIP CodePhone Number [facility]ORATORY [address] [place] [address] * (ABNORMAL) GLUCOSE, FINGERSTICK-IN OFFICE (06/26/2025 11:34 AM EST)Component ValueRef RangeTest MethodAnalysis TimePerformed AtPathologist Signature Glucose, BIB270(H)74 - 109 mg/dL06/26/2025 11:40 AM ESTNURSING GLUCOSE PROGRAM Specimen (Source)Anatomical Location / LateralityCollection Method / Volume Collection TimeReceived TimeBloodBLOOD SPECIMEN / Cvnmril3206/26/2025 11:34 AM EST06/26/2025 11:40 AM EST Narrative Authorizing ProviderResult TypeResult StatusTo Be AssignedEC BACK OFFICE LABS Final ResultPerforming OrganizationAddressCity/State/ZIP CodePhone Number NURSING GLUCOSE PROGRAM [address] [place] [address] * VASCULAR STUDIES REPORT (06/26/2025 9:36 AM EST)Anatomical RegionLaterality ModalityOtherSpecimen (Source)Anatomical Location / LateralityCollection Method / VolumeCollection TimeReceived Time06/26/2025 9:36 AM EST Narrative Procedure Note Marcie Hess MD - 06/26/2025 9:36 AM EST Upper Extremities Venous Duplex [address] [address] Status:Finalized Demographics Patient name: RANCHO MARADIAGA Gender: Male Date of : 1935 Age: 89 year(s) Procedure Information Procedure date: 06/26/2025 9:36 AM Procedure type: Vascular Proc. sub type: Veins: Upper Extremities Veins, LIMITED DUPLEX VEINSCAN UE. Accession no: [id number] Patient status: Routine Study location: Portable Technical quality: Adequate visualization Procedure Staff Referring Physician: WONG RIVAS MD Snack Steward: Emi Ribera RDMS,RVT Interpreting physician: DEIDRE NGUYEN [...] and internal jugular vein. Authorizing ProviderResult TypeResult StatusDelrj [facility]ASCULAR LAB Final Result * (ABNORMAL) GLUCOSE, FINGERSTICK-IN OFFICE (06/26/2025 7:54 AM EST)Component ValueRef RangeTest MethodAnalysis TimePerformed AtPathologist Signature Glucose, POC70(L)74 - 109 mg/dL06/26/2025 7:59 AM ESTNURSING GLUCOSE PROGRAM Specimen (Source)Anatomical Location / LateralityCollection Method / Volume Collection TimeReceived TimeBloodBLOOD SPECIMEN / Ulxyolz4406/26/2025 7:54 AM EST06/26/2025 7:59 AM EST Narrative Authorizing ProviderResult TypeResult StatusTo Be AssignedEC BACK OFFICE LABS Final ResultPerforming OrganizationAddressCity/State/ZIP CodePhone Number NURSING GLUCOSE PROGRAM [address] [place] [address] * (ABNORMAL) CBC WITH DIFFERENTIAL (06/26/2025 4:10 AM EST)ComponentValueRef RangeTest MethodAnalysis TimePerformed AtPathologist XqgfpqjutYEG36.14.5 - 11.5 K/uL06/26/2025 5:[address] [facility] PATHOLOGY LABORATORYRBC3.32(L)4.50 - 5.90 M/uL06/26/2025 5:[address] [facility] PATHOLOGY LABORATORYHemoglobin8.7(L)13.9 - 16.3 g/dL06/26/2025 5:[address] [facility] PATHOLOGY ZWBLOZBYYTWavpqlwjss82.8(L)41.0 - 53.0 %06/26/2025 5:[address] [facility] PATHOLOGY DIVTAUFPVUDJU5091 - 100 fL06/26/2025 5:[address] [facility] PATHOLOGY MKDJVKBATTUVE43.226.0 - 34.0 pg06/26/2025 5:41 AM EST [facility] PATHOLOGY VSDTBPZZJCKQRB75.532.0 - 35.9 g/dL06/26/2025 5:[address] [facility] PATHOLOGY RSXHZFEWAEIbteqwqg122(H)150 - 400 K/uL06/26/2025 5:[address] [facility] PATHOLOGY LABORATORYRDW-CV15.6(H)11.5 - 14.5 %06/26/2025 5:[address] [facility] PATHOLOGY LABORATORYMPV9.97.5 - 11.2 fL06/26/2025 5:[address] [facility] PATHOLOGY LABORATORYSpecimen (Source)Anatomical Location / LateralityCollection Method / VolumeCollection TimeReceived TimeBloodBLOOD SPECIMEN / UnknownVenipuncture / Pgluigm4106/26/2025 4:10 AM EST06/26/2025 4:18 AM EST Narrative Authorizing ProviderResult TypeResult StatusGhassacayla Lovett MDEC LAB ORDER ONLY Final ResultPerforming OrganizationAddressCity/State/ZIP CodePhone Number [facility] PATHOLOG[facility] LABORATORY [address] [place] [address] * PROCALCITONIN (06/26/2025 4:10 AM EST)ComponentValueRef RangeTest Method Analysis TimePerformed AtPathologist SignatureProcalcitonin0.25<0.50 ng/mL 06/26/2025 8:[address] [facility] PATHOLOGY LABORATORYComment: Procalcitonin Concentrations < [...] 4:17 AM EST Narrative Authorizing ProviderResult TypeResult StatusDelight Wong OGLESBY98 GENERAL LAB Final ResultPerforming OrganizationAddressCity/State/ZIP CodePhone Number [facility] PATH[facility] LABORATORY [address] [place] [phone] * (ABNORMAL) BASIC METABOLIC PANEL (06/26/2025 4:10 AM EST)ComponentValueRef RangeTest MethodAnalysis TimePerformed AtPathologist BkgtmlnkbHfdirus584(H)74 - 109 mg/dL06/26/2025 4:41 AM [facility] PATHOLOGY GDCBVWQJZDEizhgx574(L)136 - 145 mmol/L108/27/2024 4:41 AM ESTS PATHOLOGY LABORATORYPotassium4.23.5 - 5.0 mmol/L108/27/2024 4:41 AM ESTS PATHOLOGY LABORATORYCarbon Arcqqht8367 - 31 mmol/L108/27/2024 4:41 AM ESTS PATHOLOGY XAVFOZMMUPSrlfdhwd61284 - 107 mmol/L 06/26/2025 4:41 AM [facility] PATHOLOGY LABORATORYBlood Urea Soypsvmn424 - 25 mg/dL06/26/2025 4:41 AM [facility] PATHOLOGY LABORATORYCreatinine0.960.70 - 1.30 mg/dL06/26/2025 4:[address] [facility] PATHOLOGY LABORATORYCalcium8.1(L)8.6 - 10.3 mg/dL06/26/2025 4:[address] [facility] PATHOLOGY LABORATORYAnion Gat4395 - 20 06/26/2025 4:[address] [facility] PATHOLOGY LABORATORYEstimated GFR (CKD-EPI)76>=60 mL/min/1.04sbs7408/27/2024 4:[address] [facility] PATHOLOGY LABORATORYComment: 2020 CKD EPI [...] Med 1 Vol. 385 Issue 19 Pages 9431-6938 Specimen (Source)Anatomical Location / LateralityCollection Method / Volume Collection TimeReceived TimeBloodBLOOD SPECIMEN / UnknownVenipuncture / Unknown 06/26/2025 4:10 AM EST06/26/2025 4:17 AM EST Narrative Authorizing ProviderResult TypeResult StatusGhdonnie Lovett MD98 GENERAL LAB Final ResultPerforming OrganizationAddressCity/State/ZIP CodePhone Number [facility] PATHOLOG[facility] LABORATORY [address] [place] [phone] * CONFIRMATION ABO/RH (06/26/2025 4:10 AM EST)ComponentValueRef RangeTest Method Analysis TimePerformed AtPathologist SignatureABO Rh TypeA Tnbcgwlg51/16/2025 4:[address] [facility] PATHOLOGY LABORATORYSpecimen Expiration [id number] 06/26/2025 4:[address] [facility] PATHOLOGY LABORATORYABO Rh/Blanca/TXRX HistoryA Nxdppray71/16/2025 4:[address] [facility] PATHOLOGY LABORATORYSpecimen (Source) Anatomical Location / LateralityCollection Method / VolumeCollection Time Received TimeBloodBLOOD SPECIMEN / UnknownVenipuncture / Jpfkaif9206/26/2025 4:10 AM EST06/26/2025 4:19 AM EST Narrative Authorizing ProviderResult TypeResult StatusSudarshan [facility] BLOOD BANKFinal ResultPerforming OrganizationAddressCity/State/ZIP CodePhone Number [facility] PATHOLOG[facility] LABORATORY [address] [place] [address] * (ABNORMAL) MANUAL DIFF AND MORPH (06/26/2025 4:10 AM EST)ComponentValueRef RangeTest MethodAnalysis TimePerformed AtPathologist SignatureSegmented Ltqmwsgvmcy53.0(H)31.0 - 76.0 %06/26/2025 5:[address] [facility] PATHOLOGY LABORATORY Lymphocytes7.0(L)24.0 - 44.0 %06/26/2025 5:[address] [facility] PATHOLOGY LABORATORY Reactive Lymph1%06/26/2025 5:[address] [facility] PATHOLOGY LABORATORYMonocytes6.02.0 - 11.0 %06/26/2025 5:[address] [facility] PATHOLOGY LABORATORYTotal Cells Cruxsbc080 06/26/2025 5:[address] [facility] PATHOLOGY LABORATORYFragmented WSEWwl0706/26/2025 5:[address] [facility] PATHOLOGY NONFOMCMBNHdlneairxdJzk66/16/2025 5:[address] [facility] PATHOLOGY LABORATORYTarget FqiceCmjhgroc99/16/2025 5:[address] [facility] PATHOLOGY LABORATORYBurr RvuwpZvo25/16/2025 5:[address] [facility] PATHOLOGY LABORATORY ThzqfmjbbxdsOot22/16/2025 5:[address] [facility] PATHOLOGY LABORATORYSegmented Neutrophil #9.55(H)1.50 - 8.00 K/uL06/26/2025 5:[address] [facility] PATHOLOGY LABORATORYLymphocytes #0.78(L)1.00 - 4.80 K/uL06/26/2025 5:[address] [facility] PATHOLOGY LABORATORYMonocyte #0.670.20 - 1.00 K/uL06/26/2025 5:[address] [facility] PATHOLOGY LABORATORYReactiveLymph #0.11K/uL06/26/2025 5:[address] [facility] PATHOLOGY LABORATORYSpecimen (Source)Anatomical Location / LateralityCollection Method / VolumeCollection TimeReceived TimeBloodBLOOD SPECIMEN / UnknownVenipuncture / Ytfklql2406/26/2025 4:10 AM EST06/26/2025 4:18 AM EST Narrative Authorizing ProviderResult TypeResult Oma [facility] LAB ORDER ONLY Final ResultPerforming OrganizationAddressCity/State/ZIP CodePhone Number [facility] PATH[facility] LABORATORY [address] [place] [phone] * (ABNORMAL) ERYTHROCYTE SEDIMENTATION RATE (06/26/2025 4:10 AM EST)Component ValueRef RangeTest MethodAnalysis TimePerformed AtPathologist SignatureSed Rate (ESR)37(H)<=20 mm/Hr06/26/2025 12:[address] [facility] PATHOLOGY LABORATORY Specimen (Source)Anatomical Location / LateralityCollection Method / Volume Collection TimeReceived TimeBloodBLOOD SPECIMEN / UnknownVenipuncture / Tzvnmbx4206/26/2025 4:10 AM EST06/26/2025 4:18 AM EST Narrative Authorizing ProviderResult TypeResult Pernell [facility] LAB Final ResultPerforming OrganizationAddressCity/State/ZIP CodePhone Number [facility] PATH[facility] LABORATORY [address] [place] [phone] * (ABNORMAL) C-REACTIVE PROTEIN (06/26/2025 4:10 AM EST)ComponentValueRef Range Test MethodAnalysis TimePerformed AtPathologist SignatureC-Reactive Protein8.9 (H)<0.5 mg/dL06/26/2025 1:[address] [facility] PATHOLOGY LABORATORYSpecimen (Source) Anatomical Location / LateralityCollection Method / VolumeCollection Time Received TimeBloodBLOOD SPECIMEN / UnknownVenipuncture / Yjhzlfe4606/26/2025 4:10 AM EST06/26/2025 4:17 AM EST Narrative Authorizing ProviderResult TypeResult Pernell [facility] Final ResultPerforming OrganizationAddressCity/State/ZIP CodePhone Number [facility] PATH[facility] LABORATORY [address] [place] [phone] * (ABNORMAL) GLUCOSE, FINGERSTICK-IN OFFICE (06/25/2025 9:35 PM EST)Component ValueRef RangeTest MethodAnalysis TimePerformed AtPathologist Signature Glucose, IME962(H)74 - 109 mg/dL06/25/2025 9:42 PM ESTNURSING GLUCOSE PROGRAM Specimen (Source)Anatomical Location / LateralityCollection Method / Volume Collection TimeReceived TimeBloodBLOOD SPECIMEN / Crzyvep6006/25/2025 9:35 PM EST06/25/2025 9:42 PM EST Narrative Authorizing ProviderResult TypeResult StatusTo Be AssignedEC BACK OFFICE LABS Final ResultPerforming OrganizationAddressCity/State/ZIP CodePhone Number NURSING GLUCOSE PROGRAM [address] [place] [address] * (ABNORMAL) GLUCOSE, FINGERSTICK-IN OFFICE (06/25/2025 5:41 PM EST)Component ValueRef RangeTest MethodAnalysis TimePerformed AtPathologist Signature Glucose, TAL516(H)74 - 109 mg/dL06/25/2025 5:48 PM ESTNURSING GLUCOSE PROGRAM Specimen (Source)Anatomical Location / LateralityCollection Method / Volume Collection TimeReceived TimeBloodBLOOD SPECIMEN / Zucsswy9506/25/2025 5:41 PM EST06/25/2025 5:48 PM EST Narrative Authorizing ProviderResult TypeResult StatusTo Be AssignedEC BACK OFFICE LABS Final ResultPerforming OrganizationAddressCity/State/ZIP CodePhone Number NURSING GLUCOSE PROGRAM [address] [place] [address] * XR CHEST AP OR PA 1 [...] DIAGNOSIS: Pacemaker lead placement assessment ORDERING PROVIDER: [facility] [employer] NOTE: COMPARISON: None FINDINGS: Position and [...] DIAGNOSIS: Pacemaker lead placement assessment ORDERING PROVIDER: [facility] NOTE: COMPARISON: None FINDINGS: Position and [...] beexcluded clinically. MACRO: None Authorizing ProviderResult TypeResult StatusDelMount [facility] Hospital DIAGNOSTIC X- RAY 2Final Result * (ABNORMAL) GLUCOSE, FINGERSTICK-IN OFFICE (06/25/2025 12:06 PM EST)Component ValueRef RangeTest MethodAnalysis TimePerformed AtPathologist Signature Glucose, LUE217(H)74 - 109 mg/dL06/25/2025 12:13 PM ESTNURSING GLUCOSE PROGRAM Specimen (Source)Anatomical Location / LateralityCollection Method / Volume Collection TimeReceived TimeBloodBLOOD SPECIMEN / Buvaeue2406/25/2025 12:06 PM EST06/25/2025 12:13 PM EST Narrative Authorizing ProviderResult TypeResult StatusTo Be AssignedEC BACK OFFICE LABS Final ResultPerforming OrganizationAddressCity/State/ZIP CodePhone Number NURSING GLUCOSE PROGRAM [address] [place], [place] [phone] * (ABNORMAL) GLUCOSE, FINGERSTICK-IN OFFICE (06/25/2025 7:46 AM EST)Component ValueRef RangeTest MethodAnalysis TimePerformed AtPathologist Signature Glucose, JJZ234(H)74 - 109 mg/dL06/25/2025 7:56 AM ESTNURSING GLUCOSE PROGRAM Specimen (Source)Anatomical Location / LateralityCollection Method / Volume Collection TimeReceived TimeBloodBLOOD SPECIMEN / Jxkjnzh1406/25/2025 7:46 AM EST06/25/2025 7:56 AM EST Narrative Authorizing ProviderResult TypeResult StatusTo Be AssignedEC BACK OFFICE LABS Final ResultPerforming OrganizationAddHaven Behavioral Healthcarety/State/ZIP CodePhone Number NURSING GLUCOSE PROGRAM [address] [place] [address] * ECHOCARDIOGRAM REPORT (06/25/2025 7:17 AM EST)ComponentValueRef RangeTest MethodAnalysis TimePerformed AtPathologist SignatureLeft Ventricular Ejection Gwnqqbtm28%HEART AND VASCULAR CLINICMitral RegurgitationmildHEART AND VASCULAR CLINICAnatomical RegionLateralityModalityOtherSpecimen (Source)Anatomical Location / LateralityCollection Method / VolumeCollection TimeReceived Time 06/25/2025 7:17 AM EST Narrative Procedure Note Arnold Hatch MD - 06/25/2025 7:17 AM EST Transthoracic Echocardiography (TTE) Study Status:Finalized Demographics Patient name: RANCHO MARADIAGA PatientID: [id number] Gender: Male Height:70 in. Date of : 1935 Weight:135 lb. Age: 89 year(s) BMI:19.4 kg/m^2 BSA:1.77 m^2 Procedure StaffIndications Endocarditis. Interpreting physician: DANIELLE Vincent MD Referring Physician: EFRAIN VINES MD Snack Steward: Carmelita Stevenson RDCS Procedure Information Proc. sub type: TTE procedure: 2D echocardiogram,M-Mode, Doppler, Color Doppler, Contrast study. Accession no: [id number] Studylocation: Medical Step-down Unit Procedure date/time: 06/25/2025 7:17 AM Status:Routine Blood pressure: 141 / 89 mmHg Imagequality: Fair Contrastmedium: Definity Tech Comments: Patient identified by name and date ofbirth. Doctor's order(s) verified. Patient's preferred language isEnglish. Verbal consent for left heart echocontrast was obtained after explanation of the risks (1/10,000 significant and 1/3,000 minorallergic reactions) and benefits (needed enhancement of imaging) were explained. Administration of 1 dose(s) of 1.5 mlof Definity diluted to 8.5 ml of saline was administered by Carmelita Stevenson RDCS . Left Ventricle LVIDd (2D): 5.3 cm LVIDs(2D): 4 cm Septum diastolic (2D): 1.1 cm (0.6 - 1 cm) FS:25 % Post wall diastolic (2D): 1.3 cm (0.6 - 1 cm) LV mass (ASE): 256.6 g (88 - 224 g) LV mass (ASE) Index: 145.3 g/m^2 (49 - 115 g/m^2) LV Diastolic Function Left Atrium LA dimension (2D): 3.6 cm Right Ventricle RV diastolic dimension: 4.3 cm Right Atrium RA dimension : 4.2 cm Mitral Valve Aorta Aortic root (2D): 3.5 cm Findings Left ventricle: Left ventricular systolic function is focally abnormal superimposed onglobal. Focal LV systolic dysfunction consists of akinesia of the entire apex. The left ventricular ejection fraction (LVEF) is 35% +/- 5%by the biplane summation of discs (Pandey's rule) method. Left atrium: The left atrial size is severely increased. The left atrial volume index is 54 mL/m2 (normal: <35 mL/m2, mild: 35-41mL/m2, moderate: 42-48 mL/m2, severe: >48 mL/m2). Right ventricle: Normal right ventricular size and function. The percent area shortening is 42 (normal >35%, mildly reduced <35 to >29%, moderately reduced <29 to > 22%, and severely reduced < 22%). Right atrium: The right atrium is dilated. The right atrial volume indexed to BSA is enlarged at 42 mL/m2 (normal <30mL/m2, mildly dilated >30-36ml/m2, moderately dilated > 36-41ml/m2, severely dilated >41ml/m2). Aortic valve: Aortic fibrocalcific (non-stenotic) changes are present and are mild. Mitral valve: Mitral annular fibrocalcific changes are present and are mild. There is mild mitral regurgitation. Tricuspid valve: There is mild-moderate tricuspid regurgitation. Pulmonary valve: Normal pulmonic valve. Great Vessels: Normal sinus of Valsalva. Pericardium & pleura: No evidence of a pericardial effusion. Hemodynamics: Estimated pulmonary artery systolic pressure is 42 mmHg +/- 5 mmHg. (Uppernormal is <35 mmHg). Estimated RA pressure is 5 mmHg. Evidence suggests that left ventricular end diastolic pressure/preload is elevated (from the Doppler mitral filling pattern). The left ventricular filling pattern is abnormal. This is of thepseudonormal type (combined abnormal ventricular relaxation and excessive ventricular preload, a.k.a. Type II diastolic dysfunction). Miscellaneous Summary: No evidence of a thrombus in the left ventricular apex. A mass is seen in the right ventricle which is most consistent with aelectrical lead. No gross vegetations but unable to exclude due intrinsic valve disease and cardiac electrical lead. Procedure Summary Focal superimposed on globally abnormal LV systolic function: akineticapex. The left ventricular ejection fraction (LVEF) is 35%. The left atrial size is severely increased. Normal right ventricular size and function. The right atrium is dilated. Fibrocalcific changes are seen in the aortic valve, mitral annulus. There is mild mitral regurgitation. There is mild-moderate tricuspid regurgitation. Noninvasive hemodynamic assessment is consistent with mild pulmonaryhypertension (40-50 mmHg), a normal right atrial pressure, an increased LV filling pressure. No evidence of a thrombus in the left ventricular apex. A mass is seen in the right ventricle which is most consistent with aelectrical lead. No gross vegetations but unable to exclude due intrinsic valve disease and cardiac electrical lead. See above for further details. Electronically signed by DANIELLE Vincent MD (Interpreting physician)on 06/25/2025 at 8:30 AM Authorizing ProviderResult TypeResult StatusSudarshan ESPARZA NON-INVASIVE CARDIOVASCULAREdited Result - Final * (ABNORMAL) GLUCOSE, FINGERSTICK-IN OFFICE (06/24/2025 9:32 PM EST)Component ValueRef RangeTest MethodAnalysis TimePerformed AtPathologist Signature Glucose, CVH810(H)74 - 109 mg/dL06/24/2025 9:38 PM ESTNURSING GLUCOSE PROGRAM Specimen (Source)Anatomical Location / LateralityCollection Method / Volume Collection TimeReceived TimeBloodBLOOD SPECIMEN / Cysjjpq7706/24/2025 9:32 PM EST06/24/2025 9:38 PM EST Narrative Authorizing ProviderResult TypeResult StatusSudarshan ESPARZA BACK OFFICE LABSFinal ResultPerforming OrganizationAddressCity/State/ZIP CodePhone Number NURSING GLUCOSE PROGRAM [address] [place] [phone] * (ABNORMAL) CBC WITH DIFFERENTIAL (06/24/2025 8:52 PM EST)ComponentValueRef RangeTest MethodAnalysis TimePerformed AtPathologist SignatureWBC9.84.5 - 11.5 K/uL06/24/2025 9:18 PM ESTS PATHOLOGY LABORATORYRBC4.00(L)4.50 - 5.90 M/uL 06/24/2025 9:18 PM ESTS PATHOLOGY VWMGLDVWSTZdyiodcdwe88.4(L)13.9 - 16.3 g/dL06/24/2025 9:18 PM ESTS PATHOLOGY PXSKBTUDUVXltdoskuvp41.0(L)41.0 - 53.0 %06/24/2025 9:18 PM ESTS PATHOLOGY TSDTUNRCQTDVS1562 - 100 fL06/24/2025 9:18 PM ESTS PATHOLOGY CHIOOVASMPXWF61.026.0 - 34.0 pg06/24/2025 9:18 PM EST S PATHOLOGY ZMGDBLVFKRIHMJ42.532.0 - 35.9 g/dL06/24/2025 9:18 PM ESTS PATHOLOGY LYLTDOBBARMdxrgsdg998(H)150 - 400 K/uL06/24/2025 9:[address] [facility] PATHOLOGY LABORATORYRDW-CV15.9(H)11.5 - 14.5 %06/24/2025 9:[address] [facility] PATHOLOGY AIBIULIBCBCJU88.47.5 - 11.2 fL06/24/2025 9:[address] [facility] PATHOLOGY IWDBULWRBJSjbjchbxuiy46.0(H)31.0 - 76.0 %06/24/2025 9:[address] [facility] PATHOLOGY LABORATORYNeutrophil #7.831.50 - 8.00 K/uL06/24/2025 9:[address] [facility] PATHOLOGY GSIXJPDXNGLunqvipwzzi21.1(L)24.0 - 44.0 %06/24/2025 9:[address] [facility] PATHOLOGY LABORATORYLymphocytes #0.99(L)1.00 - 4.80 K/uL06/24/2025 9:[address] [facility] PATHOLOGY LABORATORYMonocytes7.22.0 - 11.0 %06/24/2025 9:[address] [facility] PATHOLOGY LABORATORYMonocyte #0.700.20 - 1.00 K/06/24/2025 9:[address] [facility] PATHOLOGY LABORATORYEosinophil1.40.1 - 4.0 %06/24/2025 9:[address] [facility] PATHOLOGY LABORATORYEosinophil #0.130.00 - 0.70 K/06/24/2025 9:[address] [facility] PATHOLOGY LABORATORYBasophils1.4<=1.9 %06/24/2025 9:[address] [facility] PATHOLOGY LABORATORYBasophil #0.140.00 - 0.20 K/06/24/2025 9:[address] [facility] PATHOLOGY LABORATORYSpecimen (Source)Anatomical Location / LateralityCollection Method / VolumeCollection TimeReceived TimeBloodBLOOD SPECIMEN / UnknownVenipuncture / Lwnpwgx9906/24/2025 8:52 PM EST06/24/2025 9:11 PM EST Narrative Authorizing ProviderResult TypeResult StatusGhassacayla ESPARZA LAB ORDER ONLY Final ResultPerforming OrganizationAddressCity/State/ZIP CodePhone Number [facility] PATH[facility]OR[facility] [address] [place] [phone] * (ABNORMAL) BASIC METABOLIC PANEL (06/24/2025 8:52 PM EST)ComponentValueRef RangeTest MethodAnalysis TimePerformed AtPathologist NtdhagmnoNizxjsq035(H)74 - 109 mg/dL06/24/2025 9:40 PM ESTPRES[facility] PBCOKCFMMMIblote061(L)136 - 145 mmol/L108/25/2024 9:40 PM [facility] PATHOLOGY LABORATORYPotassium4.83.5 - 5.0 mmol/L108/25/2024 9:40 PM [facility] PATHOLOGY LABORATORYCarbon Huwtbnn1614 - 31 mmol/L108/25/2024 9:40 PM [facility] PATHOLOGY JMIFKAIGNMBirprvji73633 - 107 mmol/L 06/24/2025 9:40 PM [facility] PATHOLOGY LABORATORYBlood Urea Toduhubk492 - 25 mg/dL06/24/2025 9:[address] [facility] PATHOLOGY LABORATORYCreatinine1.150.70 - 1.30 mg/dL06/24/2025 9:[address] [facility] PATHOLOGY LABORATORYCalcium8.0(L)8.6 - 10.3 mg/dL06/24/2025 9:[address] [facility] PATHOLOGY LABORATORYAnion Rny6056 - 20 06/24/2025 9:[address] [facility] PATHOLOGY LABORATORYEstimated GFR (CKD-EPI)61>=60 mL/min/1.55dts9308/25/2024 9:[address] [facility] PATHOLOGY LABORATORYComment: 2020 CKD EPI [...] Med 1 Vol. 385 Issue 19 Pages 5703-5442 Specimen (Source)Anatomical Location / LateralityCollection Method / Volume Collection TimeReceived TimeBloodBLOOD SPECIMEN / UnknownVenipuncture / Unknown 06/24/2025 8:52 PM EST06/24/2025 9:11 PM EST Narrative Authorizing ProviderResult TypeResult StatusSudarshan [facility] Final ResultPerforming OrganizationAddressCity/State/ZIP CodePhone Number [facility] [address] [place] [phone] * TYPE AND SCREEN (06/24/2025 8:52 PM EST)ComponentValueRef RangeTest Method Analysis TimePerformed AtPathologist SignatureABO Rh TypeA Zgnarane91/14/2025 9:52 PM ESTPRESBYTERIAN ESP[facility]ÑOL[facility] PATHOLOGY LABORATORYAb Screen YkdlfiPxsckcmt57/14/2025 9:[address] [facility] PATHOLOGY LABORATORYSpecimen Expiration [id number]/14/2025 9:[address] [facility] PATHOLOGY LABORATORYABO Rh/Blanca/TXRX HistoryNo Previous Results 06/24/2025 9:[address] [facility] PATHOLOGY LABORATORYSpecimen (Source)Anatomical Location / LateralityCollection Method / VolumeCollection TimeReceived Time BloodBLOOD SPECIMEN / UnknownVenipuncture / Fduejkd8406/24/2025 8:52 PM EST 06/24/2025 9:10 PM EST Narrative Authorizing ProviderResult TypeResult StatusSudarshan ESPARZA BLOOD BANKFinal ResultPerforming OrganizationAddressCity/State/ZIP CodePhone Number [facility] [address] [place] [phone] * BLOOD CULTURE (06/24/2025 8:52 PM EST)ComponentValueRef RangeTest Method Analysis TimePerformed AtPathologist SignatureBlood CultureNo Xtjqwu4606/29/2025 10:[address] [facility] PATHOLOGY LABORATORYSpecimen (Source)Anatomical Location / LateralityCollection Method / VolumeCollection TimeReceived TimeBlood PERIPHERAL BLOOD SPECIMEN / UnknownVenipuncture / Qcbfisn9206/24/2025 8:52 PM EST06/24/2025 9:01 PM EST Narrative [facility] - 06/29/2025 10:01 PM EST The results may be compromised due to inadequate volume of fluid received. A negative result does not rule out an infectious process. Authorizing ProviderResult TypeResult StatusSudarshan ESPARZA MICROBIOLOGY Final ResultPerforming OrganizationAddressCity/State/ZIP CodePhone Number [facility] [address] [place] [phone] * (ABNORMAL) BLOOD CULTURE (06/24/2025 8:52 PM EST)ComponentValueRef RangeTest MethodAnalysis TimePerformed AtPathologist SignatureBlood CulturePositive Culture Report(A)06/30/2025 2:[address] [facility] PATHOLOGY LABORATORYBlood Culture Anaerobic bottle yields Staphylococcus aureus DORON 06/30/2025 2:[address] [facility] PATHOLOGY LABORATORYComment:Identification by nucleic acid based testingGram StainAnaerobic bottle yields Gram Positive Cocci In Plxouqyj05/20/2025 2:[address] [facility] PATHOLOGY LABORATORYSpecimen (Source) Anatomical Location / LateralityCollection Method / VolumeCollection Time Received TimeBloodPERIPHERAL BLOOD SPECIMEN / UnknownVenipuncture / Unknown 06/24/2025 8:52 PM EST06/24/2025 9:02 PM EST Narrative OrganismAntibioticMethodSusceptibilityStaphylococcus aureusDaptomycinMIC 0.25 DORON: Sensitive Staphylococcus aureusLinezolidMIC 2 DORON: Sensitive Staphylococcus aureusOxacillinMIC <=0.25 DORON: Sensitive Staphylococcus aureusTrimethoprim + SulfamethoxazoleMIC <=10 DORON: Sensitive Staphylococcus aureusVancomycinMIC 1 DORON: Sensitive Authorizing ProviderResult TypeResult StatusSudarshan ESPARZA MICROBIOLOGY Final ResultPerforming OrganizationAddressCity/State/ZIP CodePhone Number [facility] [address] [place] [phone] from Last 3 Months Insurance Advance Directives * DNR Comfort Care Arrest (Do Not Intubate Prior to Arrest) (Latest Code Status on File) Date ActivatedDate CgbjehbniwmHljujsof97/23/2025 1:00 PMBestPractice Advisory * DNR Comfort Care Arrest (Do Not Intubate Prior to Arrest) Date ActivatedDate WftkdrguietXiyeabov41/14/2025 7:04 PM07/03/2025 1:00 PM Protocol is activated when the patient experiences cardiac or respiratory arrest. All necessary treatments and interventions can be initiated prior to arrest.QuestionAnswerCommentsDocumentation of decision process for this code status:* Discussed with patient or surrogate.?? This is the code status chosen by the patient/surrogate. * DNR Comfort Care Arrest (Intubation OK Prior to Arrest) Date ActivatedDate IkyutodovurCthgfvqr90/14/2025 6:46 PM06/24/2025 7:04 PM Protocol is activated when the patient experiences cardiac or respiratory arrest. All necessary treatments and interventions can be initiated prior to arrest.QuestionAnswerCommentsDocumentation of decision process for this code status:* Discussed with patient or surrogate.?? This is the code status chosen by the patient/surrogate. * Full Code Date ActivatedDate WhiaqvzlvotLxdgzvpr94/14/2025 6:30 PM06/24/2025 6:42 PM QuestionAnswerCommentsDocumentation of decision process for this code status:* Discussed with patient or surrogate.?? This is the code status chosen by the patient/surrogate. * Full Code Date ActivatedDate WyxwfniciyfNvnjxayg60/14/2025 5:32 PM06/24/2025 6:30 PM QuestionAnswerCommentsDocumentation of decision process for this code status:* Discussed with patient or surrogate.?? This is the code status chosen by the patient/surrogate.
--- OUTSIDE RECORDS SUMMARY | 2025-07-10 12:52 | XMS_ITS | CCD ---
Author Organization [facility] Care Team Providers Care Athletic Agent Name Role Phone Marie Tejeda Primary Care [...] Unavailable DO Marie Tejeda Primary Care Provider [phone] JO Rivas Emergency Provider DO Sushant Cordon Admit Provider [phone] DO Sushant Cordon Attending Provider MD Ashwini Conrad Other Provider [phone] MD Chuck Velasco Other Provider [phone] MD Anat Perez Other Provider MD Humberto Diaz Attending Provider [phone] MD Tru Yap Other Provider MD Fredi Medrano Admit Provider [phone] MD Fredi Medrano Attending Provider KARIN Rios [...] Other Provider DO Sushant Cordon Other Provider [phone] MD Audi Gaming Other Provider MD Cecily Keen Other Provider [phone] AMADA Wright Other Provider [phone] MD Daniel Reyes Other Provider MD Roberto [...] Provider DO Jose Roberto Felder Other Provider [phone] AMADA Marte Other Provider DO Warren Gross Other Provider [phone] MD Nayeli Jimenez Other Provider [phone] AMADA Berman Other Provider AMADA Pimentel Other Provider MD Vidya Robert Other Provider MD Howard Burrell Other Provider DO Jeevan John Other Provider AMADA Murdock Other Provider DO Mauricio Drake Other Provider KARIN Morillo Other Provider Unavailable Ashwini Conrad Unavailable Marie Tejeda DO Primary Care Provider DO Marie Tejeda Primary Care Provider JO Rivas Emergency Provider [phone] DO Sushant Cordon Admit Provider MD Ashwini Conrad R Other Provider MD Chuck Velasco Other Provider MD Anat Perez Other Provider MD Humberto Diaz Attending Provider [phone] MD Tru Yap Other Provider MD Fredi Medrano Admit Provider MD Fredi Medrano Attending Provider [phone] KARIN Rios Other Provider Unavailable KARIN Velazquez Other Provider Unavailable KARIN Angulo Other Provider Unavailable KARIN Hernandez Other Provider Unavailable KARIN Bentley Other Provider Unavailable KARIN Henry Other Provider Unavailable MD Chris Holm Other Provider AMAAD Zavala Other Provider DO Samantha Wilson Other [...] Unavailable MD Chuck Velasco Other Provider [phone] DO Federico Davis Attending Provider [phone] MD Herminio Lakhani Attending Provider Anat Perez Unavailable DO Marie Tejeda Primary Care Provider [phone] DO Federico Davis Attending Provider MD Herminio Lakhani Attending Provider MD [employer] Admit Provider MD Alberto Shearer Other Provider MD Beka Roland Other Provider MD Tru Yap Other Provider MD Vidya Robert Attending Provider MD [employer] Attending Provider MARYANN Flores Attending Provider DO Marie Tejeda Primary Care Provider [phone] GOVIND DAVIS Attending Unavailable MARIE TEJEDA Primary Care Unavailab GOVIND Sarmiento Referring Unavailable SAMMY BERMAN Attending Unavailable GOVIND DAVIS Referring Unavailable MARIE TEJEDA Primary Care Unavailab SAMMY Sosa Attending Unavailable SAMMY BERMAN Referring Unavailable MARIE TEJEDA Primary Care Unavailab le DO Marie Tejeda Primary Care Provider [phone] Provider, None Primary Care Unavailable Arian Balderas [...] Other Provider MD Anat Perez Referring Provider [phone] MD Anat Perez Referring Provider Marie Tejeda DO Primary Care Provider Marie Tejeda DO Unavailable Chirag OGLESBY, Patrick Unavailable Mitchel OGLESBY, Andrey Caballero Unavailable Saúl Davis MD Unavailable [phone] MD Abdulaziz Root Attending Provider PATRICK BEARD Attending Unavailable MANUEL BARRAZA Referring Unavailable DO Marie Tejeda Primary Care Provider DO Warren Gross Attending Provider DO Marie Tejeda Primary Care Provider [phone] MD Anat Perez Attending Provider [phone] MD Anat Perez Referring Provider [phone] MD Abdulaziz Root Attending Provider Marie Tejeda DO Primary Care Provider Anat Perez MD Attending Provider Anat Perez MD Referring Provider Abdulaziz Root MD Attending Provider Ivett OGLESBY, Abdulaziz Admit Provider Marie Tejeda DO Duncan Primary Care Provider Cally SHIRT HEMMER, Yuerong Unavailable Marie Tejeda DO Primary Care Provider [phone] Vargas Reis APRN Emergency Provider Jose Alfredo Brantley MD Admit Provider Jose Alfredo Brantley MD Attending Provider Gray Higgins MD Other Provider Sushant Cordon DO Admit Provider Sushant Cordon DO Attending Provider [phone] Stephanie Sheridan DO Other Provider [phone] Beto Russo MD Other Provider Thierno Corrales DO Other Provider Bertin Smith DO Emergency Provider Indra Burgess MD Admit Provider Indra Guillory MD Attending Provider Lisa Hidalgo MD Attending Provider Cally YBARRA.SHIRT HEMMER, Yuerong Unavailable Marie Tejeda DO Primary Care Provider Ileana CURTIS, Marie Primary Care Provider Bertin Smith DO Emergency Provider Queenie Guillory MD, Indra Morrow Admit Provider Lisa Hidalgo MD Attending Provider [phone] Saúl Davis MD Unavailable Cally CLINICAL LAB CLERK.SHIRT HEMMER, Brandonng Unavailable Ileana CURTIS, Marie Primary Care [...] Indra Guillory E Admitting Unavailab le Vaschak, [facility] Care Unavailable Lisa Hidalgo Attending Unavailable Chela Charles Consulting Unavailable Guille, Yves Consulting Unavailable Chuck Velasco Consulting Queenie Perez, Anat Consulting Unavailable Ana OGLESBY, Anat Attending Provider SALVADOR NARANJO Primary Care Physician [phone] ILEANA, MARIE Westfall Attending Unavailable VASCHAK, MARIE Westfall Attending Unavailable VASCHAK, MARIE Westfall Referring Unavailable VASCHAK, MARIE Westfall Referring Unavailable WARMARGA PAIGE Attending Unavailable VASCHAK, MARIE Westfall Attending Unavailable VASCHAK, MARIE Westfall Referring Unavailable VASCHAK, MARIE Westfall Attending Unavailable BETO GARCIA Attending Unavailable STEPHANIE SHERIDAN Attending Unavailable VASCHAK, MARIE Westfall Referring Unavailable YOMI CHONG Attending Unavailable VASCHAK, [facility] Unavailab AYANA Dudley Referring Unavailable VASCHAK, [facility] Unavailab AYANA Dudley Attending Unavailable VASCHAK, [facility] Unavailab AYANA Dudley Referring Unavailable AYANA ZAVALA Attending Unavailable VASCHAK, [facility] Unavailab AYANA Dudley Attending Unavailable AYANA ZAVALA Referring Unavailable VASCHAK, [facility] Unavailab le CALLY, YUEROARSLAN Referring Unavailable AYANA ZAVALA Attending Unavailable VASCHAK, [facility] Unavailab le VASCHAK, [facility] Unavailab le VASCHAK, [facility] Unavailab le VASCHAK, [facility] Unavailab AYANA Dudley Attending Unavailable Chirag [facility], [facility] Unavailable Andrey Grullon MD Unavailable [phone] Saúl Davis MD Unavailable Almita Deras DO Unavailable Mely Rollins Attending Unavailable Tristan MELCHOR Attending Unavailable Tristan MELCHOR Attending Unavailable Tristan MELCHOR Referring Unavailable Tristan MELCHOR Attending Unavailable Tristan MELCHOR Attending Unavailable Mely Rollins Attending Unavailable Medications Current Medications MedicationDrug Class(es)DatesSig (Normalized)Sig (Original)[id number] 200 actuat albuterol 0.09 mg/actuat metered dose inhaler (17 sources)beta2-Adrenergic AgonistStart: 07-20-2024 End: 95-46-2330ovzb 2 puff(s) by inhalation every four hours for wheezing albuterol HFA (ProAir HFA) 90 mcg/act inhaler Indications: Bronchitis Inhale 2 puffs every 4 (four)hours if needed for wheezing or shortness of breath 8.5 g 07/20/2024 07/20/2025 ActiveamLODIPine 5 mg oral tablet (2 sources)Dihydropyridine Calcium Channel BlockerStart: 60-66-6026cdzi 1 tablet by mouth once dailyamLODIPine (NORVASC) 5 MG tablet Take 1 tablet by mouth daily 30 tablet 3 01/07/2022 ActiveStart: 37-68-2159lani 1 tablet by mouth once daily amLODIPine (NORVASC) 5 MG tablet Take 1 tablet by mouth daily 30 tablet 3 01/07/2022 ActiveStart: 25-78-1314csho 5 mg by mouth once daily5 mg, Oral, DAILY, First dose on 01/04/22 at 1500, Until Discontinuedamylase 644354 unt / lipase 20480 unt / protease 74336 unt delayed release oral capsule (20 sources)Start: 03-30-8775Bqsrk 24,000 units oral delayed release capsule Refills(s) 0 Start Date: 04/25/25 Status: Ordered Medication Dispense Status: Completed Total Allowed Fills: 1 Fills Dispensed: 0Start: 04-09-2025 End: 55-24-3456sbzjaooyboyn, Yhl-Bcux-Smfe, (Creon) 88920-56107 units capsule Indications: Pancreatic insufficiency (HCC) TAKE 2 CAPSULES BY MOUTH DAILY WITH MEALS AND 1 WITH 2 SNACKS DAILY DIRECTED 250 capsule 05/02/2025 ActiveStart: 20-60-2008hiyzfwcinfyn, Cnv-Ysnm-Gikh, (Creon) 72324-49078 units capsule Indications: Pancreatic insufficiency (HCC) TAKE 2 CAPSULES BY MOUTH DAILY WITH MEALS AND 1 WITH 2 SNACKS DAILY DIRECTED 250 capsule 03/05/2025 ActiveStart: 55-66-4257wirpxbkopqxc, Uru-Rkte-Onex, (Creon) 39660-55687 units capsule Indications: Pancreatic insufficiency (HCC) TAKE 2 CAPSULES BY MOUTH DAILY WITH MEALS AND 1 CAPSULE BY MOUTH WITH SNACKS DIRECTED 240capsule 3 08/15/2024 ActiveStart: 45-65-2605txitlfojhhns, Ijt-Autg-Qkyq, (Creon) 92028-07660 units capsule Indications: Pancreatic insufficiency (CMS/HCC) TAKE 2 CAPSULES BY MOUTH DAILY WITH MEALS AND 1 CAPSULE BY MOUTH WITH SNACKS [id number] capsule 3 01/25/2024 ActiveStart: 03-57-0763umfh 96771-74956 capsules by mouth once Xucprs-Nylkuhkr-Tqizdpl (Pork) (Creon) 24,000-76,000 -120,000 unit Capsule,Delayed Release(Dr/Ec) Active 2 CAP PO 3x/Day with meals 120 30 0 May 07, 2023 12:00am Complies with drug therapyStart: 05-02-2018 End: 37-68-4375nifj 1 capsule by mouth three times daily as needed for muscle bzlidiMdnsup-Skbavqbz-Vsannhg (Pork) (Creon) 24,000-76,000 -120,000 unit capsule,delayed release(DR/EC) Discontinued 1 CAP PO Three times daily as needed for gastrointestinal spasms or cramping February 05, 2024 12:00am August 31, 2024 11:08am administer one cap with utkeblmpbdeq-ssneciuo-hzvyeba (CREON) 04683-81134 units delayed release capsule Take 12,000 Units by mouth take with snacks 0 Activeaspirin 81 mg oral capsule (20 sources)Platelet Aggregation Inhibitor, Nonsteroidal Anti-inflammatory Drug Start: 79-65-0197fkda 1 mg by mouth every twenty-four hoursaspirin 81 mg oral capsule mg cap(s), Oral, q24hr, Refills(s) 0 Start Date: 04/25/25 Status: Ordered Medication Dispense Status: Completed Total Allowed Fills: 1 Fills Dispensed: 0Start: 05-03-2023 End: 12-78-3976ljcj 1 tablet by mouth once dailyAspirin 81 mg Tablet,Delayed Release (Dr/Ec) Active 81 MG PO Daily 30 30 0 May 07, 2023 12:00am Complies with drug therapyatorvastatin 40 mg oral tablet (20 sources)HMG-CoA Reductase InhibitorStart: 95-20-4254tiiqfjmrlbji 40 mg Tab Refills(s) 0 Start Date: 04/25/25 Status: Ordered Medication Dispense Status: Completed Total Allowed Fills: 1 Fills Dispensed: 0Start: 05-03-2023 End: 70-09-8886bldr 1 tablet by mouth once daily at bedtimeAtorvastatin 80 mg tablet Discontinued 80 MG PO Daily at bedtime 90 90 1 October 28, 2023 12:00am February 28, 2024 8:12am End: 29-09-8918oeampyqmzctb (Lipitor) 80 MG tablet Take 40 mg by mouth Daily 05/02/2025 Discontinued (Reorder)Blood Sugar Diagnostic (20 sources)Start: 16-78-9967Mepgk Sugar Diagnostic Active STRIP 120 September 05, 2023 12:00am Fingerstick blood sugar ACHSStart: 15-72-0510Wiwdv Sugar Diagnostic Active STRIP 120 September 05, 2023 1:00am Fingerstick blood sugar ACHSBlood-Glucose Sensor (DEXCOM G7 SENSOR) delfin (8 sources)Start: 04-40-3176Uqfyc-Glucose Sensor (DEXCOM G7 SENSOR) delfin Indications: 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 3 each 12/25/2024 01/01/2025 DiscontinuedStart: 70-83-2064Wiaqu-Glucose Sensor (DEXCOM G7 SENSOR) delfin Indications: Type [...] oral capsule (20 sources)Cephalosporin AntibacterialStart: 05-17-2025 End: 93-11-1341kxhb 1 capsule by mouth every twelve hoursKeflex 500 mg Cap 500 mg = 1 cap(s), Oral, q12hr, X 5 day(s), # 10 cap(s), Refills(s) 0, Pharmacy: [facility]/pharmacy #[id number], 177, cm, 05/17/25 10:58:00 EST, Height/Length Dosing, 61.7, kg, 05/17/25 10:58:00 EST, Weight Dosing Start Date: 05/17/25 Stop Date: 05/22/25 Status: Ordered Medication Dispense Status: Completed Quantity: 10.0 Unit: cap(s) Total Allowed Fills: 1 Fills Dispensed: 0Start: 54-92-3185pjtw 1 capsule by mouth once dailyKeflex 500 mg Cap 500 mg = 1 cap(s), Oral, Daily, Take 1 cap day prior to procedure and 1 cap day of procedure, # 2 cap(s), Refills(s) 0, Pharmacy: [facility]/pharmacy #[id number], 177, cm, 04/25/25 14:48:00 EDT,Height/Length Dosing, 61.5, kg, 04/25/25 14:48:00 EDT, Weight Dosing Start Date: 04/26/25 Status: Ordered Medication Dispense Status: Completed Quantity: 2.0 Unit: cap(s) Total Allowed Fills: 1 FillsDispensed: 0Start: 06-21-2024 End: 43-12-5485jdme 1 capsule by mouth three times dailyCephalexin 500 mg capsule Discontinued 500 MG PO Three times daily 21 June 21, 2024 11:28am July 16, 2024 8:10pmStart: 06-18-2024 End: 74-79-2368vvwz 1 capsule by mouth twice dailyCephalexin 500 mg capsule Discontinued 500 MG PO Twice daily 14 7 0 June 18, 2024 1:00am June 21, 2024 11:28amcetirizine hydrochloride 10 mg oral tablet (20 sources)Histamine-1 Receptor Antagonist End: 67-94-1833yzxi 1 tablet by mouth once dailycetirizine (ZYRTEC) 10 mg tablet Take 10 mg by mouth once daily. Activecholecalciferol 0.05 mg oral tablet (20 sources)Vitamin DStart: 10-26-2023 End: 17-34-8820jeks 1 tablet by mouth once dailycholecalciferol (Vitamin D-3) 50 MCG (2000 UT) tablet Take 2,000 Units by mouth Daily 10/26/2023 ActiveStart: 89-68-3968euap 100 ug by mouth once dailyCholecalciferol (Vitamin D3) 125 mcg/0.5 mL (5K unit/0.5mL) drops Active 100 MCG PO Daily October 26, 2023 12:00am Complies with drug therapyStart: 65-07-3394nows 100 ug by mouth once dailyCholecalciferol (Vitamin D3) Active 100 MCG PO Daily October 25, 2023 11:00pmStart: 55-91-9074lixy 100 ug by mouth once dailyCholecalciferol (Vitamin D3) Active 100 MCG PO Daily October 26, 2023 12:00amStart: 08-31-2023 End: 43-56-9353ewyb 1 tablet by mouth once dailyCholecalciferol (Vitamin D3) (Vitamin D3) 50 mcg (2,000 unit) tablet Discontinued 50 MCG PO Daily August 31, 2023 1:00am October 28, 2023 2:44pm End: 83-11-1529xufz 1 capsule by mouth in the morningcholecalciferol (Vitamin D- 3) 25 MCG (1000 UT) capsule Take 25 mcg by mouth in the morning. 07/20/2024 Discontinued (Therapy completed)Cholecalciferol (Vitamin D3) 125 mcg/0.5 mL (5K unit/0.5mL) drops (7 sources)Start: 64-51-7159eheg 100 ug by mouth once dailyCholecalciferol (Vitamin D3) 125 mcg/0.5 mL (5K unit/0.5mL) drops Active 100 MCG PO Daily October 26, 2023 12:00amStart: 46-00-6345swjf 100 ug by mouth once daily Cholecalciferol (Vitamin D3) 125 mcg/0.5 mL (5K unit/0.5mL) drops Active 100 MCG PO Daily October 25, 2023 11:00pmCreon 6000 UNIT (4 sources)Creon 6000 UNIT as directed Orally Activedocusate sodium 50 mg / sennosides, intermediate 8.6 mg oral tablet (2 sources)take 1 tablet by mouth once dailysenna-docusate sodium (Senokot-S) 8.6-50 MG tablet Take 1 tablet by mouth Daily Activedoxycycline hyclate 100 mg oral capsule (2 sources)Tetracycline-class DrugStart: 08-30-2024 End: 17-55-9527bxwyuokraqm (Vibramycin) 100 MG capsule Indications: Lower respiratory [...] glucagon 5 mg/ml auto-injector (20 sources)Antihypoglycemic AgentStart: 89-09-3696wzvmvsal (GVOKE HYPOPEN 2- PACK) 1 mg/0.2 mL auto-injector Inject 1 mg subcutaneously as needed. 0.4mL 3 07/06/2024 ActiveStart: 66-29-5206jkdtgszs (rDNA) injection 1 mginject 1 mg by subcutaneous injection onceGvoke HypoPen 1-Pack 1 MG/0.2ML injection Inject 1 mg under the skin 1 (one) time if needed Ccerkx330 ml glucose 50 mg/ml injection (3 sources)Start: 07-59-0423pxpfyhim bolus 10% 125 mLStart: 01-02-2022 End: 15-33-4822ognpnize 5 % solution1 ml hydrALAZINE hydrochloride 20 mg/ml injection (1 source)Arteriolar VasodilatorStart: 08-16-0887jacrRWESFEH (APRESOLINE) injection 10 mg24 hr hydroCHLOROthiazide 12.5 mg / metoprolol succinate 25 mg extended release oral tablet (2 sources)Thiazide Diuretic, beta-Adrenergic BlockerStart: 04-25-2025 hydrochlorothiazide-metoprolol 12.5 mg-25 mg oral tablet, extended release Refill(s) 0 Start Date: 04/25/25 Status: Ordered Medication Dispense Status: Completed Total Allowed Fills: 1 Fills Dispensed: 0Insulin Aspart U-100 (Novolog Flexpen U-100 Insulin) 100 unit/mL (3 mL) Insulin Pen (20 sources)Start: 69-43-2332Lrdajws Aspart U-100 (Novolog Flexpen U-100 Insulin) 100 unit/mL (3 mL) Insulin Pen Active 0 UNIT SUBCUT 3X/Day with meals and bedtime 0 September 03, 2023 1:00am Please contact the information source for Protocol details.Start: 09-03-2023 End: 10-71-3297Undecqp Aspart U-100 (Novolog Flexpen U-100 Insulin) 100 unit/mL (3 mL) Insulin Pen Discontinued 0 UNIT SUBCUT 3x/Day with meals 0 September 03, 2023 1:00am October 28, 2023 2:44pm On Hold: medication in twice Please contact the information source for Protocol details.Start: 25-47-4078Tjxweyb Aspart U- 100 (Novolog Flexpen U-100 Insulin) 100 unit/mL (3 mL) Insulin Pen Active 0 UNIT SUBCUT 3X/Day with meals and bedtime 0 September 03, 2023 12:00am Please contact the information source for Protocol details.Start: 09-03-2023 End: 04-61-4587Vavwnsx Aspart U-100 (Novolog Flexpen U-100 Insulin) 100 unit/mL (3 mL) Insulin Pen Discontinued 0 UNIT SUBCUT 3x/Day with meals 0 September 03, 2023 12:00am October 28, 2023 1:44pm On Hold: medication in twice Please contact the information source for Protocol details.Start: 41-22-8232Alqweuc Aspart U- 100 (Novolog Flexpen U-100 Insulin) 100 unit/mL (3 mL) Insulin Pen Active 0 UNIT SUBCUT 3X/Day with meals and bedtime 0 September 03, 2023 12:00amStart: 09-03-2023 End: 05-68-5794Vbbfcyd Aspart U-100 (Novolog Flexpen U-100 Insulin) 100 unit/mL (3 mL) Insulin Pen Discontinued 0 UNIT SUBCUT 3x/Day with meals 0 September 03, 2023 12:00am October 28, 2023 1:44pmStart: 09-03-2023 End: 15-75-1831Rlsyofi Aspart U-100 (Novolog Flexpen U-100 Insulin) 100 unit/mL (3 mL) Insulin Pen Discontinued 0 UNIT SUBCUT 3x/Day with meals 0 September 03, 2023 1:00am October 28, 2023 2:44pmStart: 07-30-2452Dkblirm Aspart U-100 (Novolog Flexpen U-100 Insulin) 100 unit/mL (3 mL) Insulin Pen Active 0 UNIT MUNOZ BCUT 3x/Day with meals 0 September 03, 2023 1:00amStart: 72-68-5670Xjrepsb Aspart U-100 (Novolog Flexpen U-100 Insulin) 100 unit/mL (3 mL) Insulin Pen Active 0 UNIT SUBCUT 3X/Day with meals and bedtime 0 September 03, 2023 1:00am Start: 05-07-2023 End: 04-63-2331Cwqfsey Aspart U-100 (Novolog Flexpen U-100 Insulin) 100 unit/mL (3 mL) Insulin Pen Discontinued 0 UNITS SUBCUT 3x/Day with meals 0 May 07, 2023 12:00am September 05, 2023 3:28pm Please contact the information source for Protocol details.Start: 05-07-2023 End: 87-90-2062Swjdzmy Aspart U-100 (Novolog Flexpen U-100 Insulin) 100 unit/mL (3 mL) Insulin Pen Discontinued 0 UNITS SUBCUT 3x/Day with meals 0 May 06, 2023 11:00pm September 05, 2023 2:28pm Please contact the information source for Protocol details.Start: 05-07-2023 End: 35-10-7195builit 1 dose by subcutaneous injection at bedtimeInsulin Aspart U-100 (Novolog Flexpen U-100 Insulin) 100 unit/mL (3 mL) Insulin Pen Discontinued 1 sliding scale dose SUBCUT Before meals and at bedtime May 06, 2023 11:00pm September 05, 2023 2:28pmStart: 05-07-2023 End: 31-11-8796Ivebgeq Aspart U-100 (Novolog Flexpen U-100 Insulin) 100 unit/mL (3 mL) Insulin Pen Discontinued 0 UNITS SUBCUT 3x/Day with meals May 06, 2023 11:00pm September 05, 2023 2:28pmStart: 05-07-2023 End: 42-60-2927ttalud 1 dose by subcutaneous injection at bedtimeInsulin Aspart U-100 (Novolog Flexpen U-100 Insulin) 100 unit/mL (3 mL) Insulin Pen Discontinued 1 sliding scale dose SUBCUT Before meals and at bedtime May 07, 2023 12:00am September 05, 2023 3:28pmStart: 05-07-2023 End: 47-72-4932Tgyvbet Aspart U-100 (Novolog Flexpen U-100 Insulin) 100 unit/mL (3 mL) Insulin Pen Discontinued 0 UNITS SUBCUT 3x/Day with meals May 07, 2023 12:00am September 05, 2023 3:28pmStart: 99-29-0728pxlrci 1 dose by subcutaneous injection at bedtimeInsulin Aspart U-100 (Novolog Flexpen U-100 Insulin) 100 unit/mL (3 mL) Insulin Pen Active 1 sliding scale dose SUBCUT Before meals and at bedtime May 06, 2023 11:00pmStart: 05-07-2023 Insulin Aspart U-100 (Novolog Flexpen U-100 Insulin) 100 unit/mL (3 mL) Insulin Pen Active 0 UNITS SUBCUT 3x/Day with meals May 06, 2023 11:00pmStart: 17-48-7896glweti 1 dose by subcutaneous injection at bedtimeInsulin Aspart U-100 (Novolog Flexpen U-100 Insulin) 100 unit/mL (3 mL) Insulin Pen Active 1 sliding scale dose SUBCUT Before meals and at bedtime May 07, 2023 12:00am Start: 98-84-3925Zjsobij Aspart U-100 (Novolog Flexpen U-100 Insulin) 100 unit/mL (3 mL) Insulin Pen Active 0 UNITS SUBCUT 3x/Day with meals May 07, 2023 12:00amStart: 05-03-2023 End: 57-52-5585Nmgdvaf Aspart U-100 (Novolog Flexpen U-100 Insulin) 100 unit/mL (3 mL) Insulin Pen Discontinued 0 UNITS SUBCUT 3x/Day with meals May 03, 2023 12:00am May 03, 2023 5:09pm Please contactthe information source for Protocol details.Start: 05-03-2023 End: 83-64-4020Jugqujj Aspart U-100 (Novolog Flexpen U-100 Insulin) 100 unit/mL (3 mL) Insulin Pen Discontinued 0 UNITS SUBCUT 3x/Day with meals 0 May 02, 2023 11:00pm May 03, 2023 4:09pm Please contactthe information source for Protocol details.Start: 05-03-2023 End: 43-07-1177Wanhrso Aspart U-100 (Novolog Flexpen U-100 Insulin) 100 unit/mL (3 mL) Insulin Pen Discontinued 0 UNITS SUBCUT 3X/Day with meals and bedtime 0 May 02, 2023 11:00pm May 03, 2023 4:10pmStart: 05-03-2023 End: 88-20-6026Ckdqext Aspart U-100 (Novolog Flexpen U-100 Insulin) 100 unit/mL (3 mL) Insulin Pen Discontinued 0 UNITS SUBCUT 3x/Day with meals 0 May 02, 2023 11:00pm May 03, 2023 4:09pmStart: 05-03-2023 End: 43-77-4751Moqgzhv Aspart U-100 (Novolog Flexpen U-100 Insulin) 100 unit/mL (3 mL) Insulin Pen Discontinued 0 UNITS SUBCUT 3X/Day with meals and bedtime 0 May 03, 2023 12:00am May 03, 2023 5:10pmStart: 05-03-2023 End: 56-45-7138Lireaob Aspart U-100 (Novolog Flexpen U-100 Insulin) 100 unit/mL (3 mL) Insulin Pen Discontinued 0 UNITS SUBCUT 3x/Day with meals 0 May 03, 2023 12:00am May 03, 2023 5:09pmStart: 92-67-0032Kwjgxsf Aspart U-100 (Novolog Flexpen U-100 Insulin) 100 unit/mL (3 mL) Insulin Pen Active 0 UNITS S UBCUT 3X/Day with meals and bedtime 0 May 03, 2023 12:00amStart: 40-10-8749Jdrlrkn Aspart U-100 (Novolog Flexpen U-100 Insulin) 100 unit/mL (3 mL) Insulin Pen Active 0 UNITS SUBCUT 3x/Day with meals 0 May 03, 2023 12:00aminsulin aspart, human 100 unt/ml injectable solution (20 sources)Insulin AnalogStart: 79-26-5461Retjakj Aspart 100 UNIT/ML solution 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 Inject before meals. Use a directed by assembly line brazer. 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 Complies with drug therapyStart: 08-31-2023 End: 98-75-5517Oketrek Aspart U-100 (Novolog U-100 Insulin Aspart) 100 unit/mL solution Discontinued 50 UNIT CNTSUBQINF Daily August 31, 2023 1:00am September 05, 2023 3:28pm per insulin pumpStart: 08-18-2023 End: 82-45-7858WvskCVL FLEXPEN 100 UNIT/ML pen 08/18/2023 07/20/2024 Discontinued (Therapy completed)Start: 05-07-2023 End: 57-42-8981Eoiedsh Aspart U-100 (Novolog Flexpen U-100 Insulin) 100 unit/mL (3 mL) Insulin Pen Discontinued 0 UNIT SUBCUT 3x/Day with meals Protocol: *Carb coverage 1:10*Give 1 unit of rapid-acting insulin for every 10 gm of carbohydrates eaten at meals 0 0 September 03, 2023 1:00am October 28, 2023 2:44pm On Hold: medication in twice Please contact the information source for Protocol details.Start: 05-03-2023 End: 48-91-2874Lbrmbsd Aspart U-100 (Novolog Flexpen U-100 Insulin) 100 [...] information source for Protocol details.Start: 04-28-2023 End: 47-79-6161Qpfkhye Aspart U-100 (Novolog Flexpen U-100 Insulin) 100 unit/mL (3 mL) Insulin Pen Discontinued 0 UNITS SUBCUT 3x/Day with meals Protocol: *CARB COVERAGE 1:10*GIVE 1 UNIT OF ASPART FOR EVERY 10 GM CHO EATEN AT MEALS 0 0 May 03, 2023 12:00am May 03, 2023 5:09pm Please contact the [employer] source for Protocol details.Start: 04-28-2023 End: 54-27-9870lywtin 5 [IU] by subcutaneous injection after breakfastInsulin [...] 100 unt/ml pen injector (20 sources)Insulin AnalogStart: 25-86-5006pbktra 1 [IU] by subcutaneous injection at bedtimeinsulin glargine (Basaglar KwikPen) 100 UNIT/ML pen 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) Inject 12 Units under the skin at bedtime 10 mL 06/02/2024 07/20/2024 Discontinued (Therapy completed)Start: 05-30-2024 End: 71-51-4419hpixvk 16 [IU] by subcutaneous injection at bedtimeinsulin glargine (Lantus) 100 UNIT/ML injection Indications: 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) Inject 16 Units under the skin at bedtime 10 mL 05/30/2024 08/28/2024 ActiveStart: 09-03-2023 End: 05-07-5175Mwxcsey Glargine (Lantus Solostar U-100 Insulin) 100 unit/mL (3 mL) Insulin Pen Discontinued 24 UNIT SUBCUT Daily 0 0 September 03, 2023 1:00am October 28, 2023 2:43pm On Hold: medication in twiceStart: 08-31-2023 End: 28-62-8682Zfhbwan Glargine (Lantus Solostar U-100 Insulin) 100 unit/mL (3 mL) Insulin Pen Discontinued 16 UNIT SUBCUT Bedtime August 31, 2023 1:00am July 16, 2024 8:12pmStart: 97-63-0719fpfkza 8 [IU] by subcutaneous injection at bedtimeInsulin Glargine (Lantus Solostar U-100 Insulin) 100 unit/mL (3 mL) Insulin Pen Active 8 UNIT SUBCUT Bedtime August 31, 2023 1:00amStart: 08-30-2023 End: 20-12-8872vdcuyl 8 [IU] by subcutaneous injection at bedtimeinsulin glargine (Lantus) 100 UNIT/ML injection Indications: 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 (CMS/HCC) Inject 8 Units under the skin at bedtime 08/30/2023 05/30/2024 Discontinued (Reorder)Start: 08-20-2023 End: 76-98-7336Srwsox SoloStar 100 UNIT/ML pen Inject 18 Units under the skin at bedtime 08/20/2023 07/20/2024 Discontinued (Therapy completed)Start: 05-03-2023 End: 40-04-4040gbysoi 7 [IU] by subcutaneous injection twice dailyInsulin Glargine (Lantus Solostar U-100 Insulin) 100 unit/mL (3 mL) Insulin Pen Discontinued 7 UNITS SUBCUT Twice daily 4.2 30 0 May 07, 2023 12:00am August 31, 2023 4:55pmStart: 04-28-2023 End: 83-32-5726Twcjxwv Glargine (Lantus Solostar U-100 Insulin) 100 unit/mL (3 mL) insulin pen Discontinued 18 UNIT SUBCUT Bedtime April 28, 2023 12:00am May 03, 2023 5:10pm End: 86-70-4063kzusxk 100 [IU] by subcutaneous injection at bedtimeinsulin [...] - Basal Dose (Patient Supplied) (1 source)Start: 63-91-7230Dfeadzv Pump - Basal Dose (Patient Supplied)Insulin Pump - Bolus Dose (Patient Supplied) (1 source)Start: 17-64-8083Nhhuiww Pump - Bolus Dose (Patient Supplied)insulin pump cart,auto,BT,G6/7 (OMNIPOD 5 G6-G7 PODS, GEN 5,) crtg (20 sources)Start: 65-23-2449ipzzxtq pump cart,auto,BT,G6/7 (OMNIPOD 5 G6-G7 PODS, GEN 5,) crtg Indications: 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 10 Each 07/06/2024 ActiveLactobac no.41/Bifidobact no.7 (PROBIOTIC-10 ORAL) (20 sources)Lactobac no.41/Bifidobact no.7 (PROBIOTIC-10 ORAL) Take by mouth once daily. ActiveLactobacillus Combination No.4 (Probiotic) 3 billion cell capsule (6 sources)Start: 06-24-9574bcnt 3 capsules by mouth once dailyLactobacillus Combination No.4 (Probiotic) 3 billion cell capsule Active 3000 MMU CELLS PO Daily August 31, 2024 1:00am administer with a meal Complies with drug therapyStart: 37-76-7455igwv 3 capsules by mouth once dailyStart: 08-78-3825jqis 3 capsules by mouth once dailyLactobacillus Combination No.4 (Probiotic) 3 billion cell capsule Active 3000 MMU CELLS PO Daily August 31, 2024 1:00am administer with a mealStart: 08-46-1390rpxh 3 capsules by mouth once daily Lactobacillus Combination No.4 (Probiotic) 3 billion cell capsule Active 3000 MMU CELLS PO Daily August 31, 2024 12:00am administer with a meal lipase/protease/amylase (CREON ORAL) (2 sources)take 50782 mg by mouth three times dailylipase/protease/amylase (CREON ORAL) Take 24,000 mg by mouth 3 times a day. 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) Take 1 tablet (25 mg) by mouth Daily 05/02/2025 Activelutein 6 mg oral capsule (20 sources)Start: 10-26-2023 End: 99-28-0588pean 1 capsule by mouth once dailyLutein 6 [...] melatonin 1 mg oral tablet (1 source)Start: 23-79-5073ujhtuafsd tablet 3 mg24 hr metoprolol succinate 50 mg extended release oral tablet (20 sources)beta-Adrenergic BlockerStart: 05-02-2025 End: 93-11-8676zczy 0.5 tablet by mouth every twenty-four hours in the morning metoprolol succinate XL (Toprol-XL) 50 MG 24 hr tablet Indications: Hypertensive heart disease withchronic systolic congestive heart failure (HCC) Take 0.5 tablets (25 mg) by mouth in the morning and 0.5 tablets (25 mg) before bedtime. Do not crush or chew. 05/02/2025 ActiveStart: 80-84-8128ekjy 2 tablets by mouth once daily at bedtimeMetoprolol Succinate 25 mg tablet extended release 24 hr Active 12.5 MG PO Daily at bedtime 45 90 0Sept2024 12:00am Complies with drug therapyStart: 07-16-2024 End: 16-98-6907tuzi 2 tablets by mouth twice dailyMetoprolol Succinate 25 mg tablet extended release 24 hr Discontinued 12.5 MG PO Twice daily 90 90 2 December 05, 2024 9:38am March 27, 2025 10:50amStart: 73-71-4151pmwi 0.5 tablet by mouth every twelve hoursmetoprolol succinate ER (TOPROL XL) 50 mg 24 hr tablet Take 0.5 tablets by mouth every 12 hours. 06/21/2024 ActiveStart: 05-25-2024 End: 23-33-3031ubkx 1 tablet by mouth twice dailyMetoprolol Succinate 50 mg Tablet Extended Release 24 Hr Discontinued 50 MG PO Twice daily 60 30 3 May 25, 2024 1:00am July 16, 2024 8:14pmStart: 05-16-2024 End: 23-79-5309lfci 2 tablets by mouth twice dailyMetoprolol Succinate 25 mg tablet extended release 24 hr Discontinued 12.5 MG PO Twice daily May 16, 2024 1:00am May 25, 2024 10:49amStart: 40-69-9707wjqb 12.5 mg by mouth twice dailyMetoprolol Succinate Active 12.5 MG PO Twice daily May 16, 2024 12:00amStart: 04-24-2024 End: 87-08-7790bqza 0.5 tablet by mouth every twenty-four hours in the morning metoprolol succinate XL (Toprol-XL) 25 MG 24 hr tablet Indications: Coronary arteriosclerosis (CMS/HCC) Take 0.5 tablets (12.5 mg) by mouth in the morning and 0.5 tablets (12.5 mg) before bedtime. 180 tablet 3 04/24/2024 05/30/2024 Discontinued (Therapy completed)Start: 02-15-2024 End: 24-47-0774mvix 2 tablets by mouth once dailyMetoprolol Succinate 25 mg tablet extended release 24 hr Discontinued 12.5 MG PO Daily 45 90 1 February 15, 2024 12:00am May 16, 2024 1:54pmStart: 02-15-2024 End: 22-08-3717dzvk 12.5 mg by mouth once dailyMetoprolol Succinate Discontinued 12.5 MG PO Daily 45 90 February 14, 2024 11:00pm May 16, 2024 12:54pm Start: 02-05-2024 End: 20-64-6624cfmt 2 tablets by mouth twice dailyMetoprolol Succinate (Toprol Xl) 25 mg tablet extended release 24 hr Discontinued 12.5 MG PO Twice daily February 05, 2024 12:00am February 15, 2024 10:58am End: 75-27-3342ibyd 1 tablet by mouth every twenty-four hours in the morning metoprolol succinate XL (Toprol-XL) 25 MG 24 hr tablet Take 12.5 mg by mouth in the morning and 12.5 mg before bedtime. Do not crush or chew.. 01/02/2025 Discontinued (Dose adjustment)Multi Vitamins oral tablet (2 sources)Start: 86-47-3976vwyf 1 tablet by mouth once dailyMulti Vitamins oral tablet Oral, Daily, Refill(s) 0 Start Date: 04/25/25 Status: Ordered Medication Dispense Status: Completed Total Allowed Fills: 1 Fills Dispensed: 0Start: 94-63-8212aadn 1 tablet by mouth once dailyMulti Vitamins oral tablet Oral, Daily, Refill(s) 0 Start Date: 04/25/25 Status: Ordered Repeat number: 1Multiple Vitamins-Minerals (LUTEIN-ZEAXANTHIN PO) (1 source)take 1 tablet by mouth once dailyMultiple Vitamins-Minerals (LUTEIN- ZEAXANTHIN PO) Take 1 tablet by mouth daily 0 ActiveMultivit With Min-Folic Acid (Centrum Adults) 12 mcg tablet,chewable (20 sources)Start: 94-08-2539yyxc 1 tablet by mouth once dailyMultivit With Min- Folic Acid (Centrum Adults) 12 mcg tablet,chewable Active 1 TAB PO Daily October 26, 2023 12:00am Complies with drug therapyStart: 40-94-7651cyhq 1 tablet by mouth once dailyStart: 75-00-5575wtik 1 tablet by mouth once dailyMultivit With Min-Folic Acid (Centrum Adults) 12 mcg tablet,chewable Active 1 TAB PO Daily October 25, 2023 11:00pmStart: 05-22-6750ysvk 1 tablet by mouth once daily Multivit With Min-Folic Acid (Centrum Adults) 12 mcg tablet,chewable Active 1 TAB PO Daily October 26, 2023 12:00ammultivit-min/ferrous fumarate (MULTI VITAMIN ORAL) (1 source)take 1 tablet by mouth once dailymultivit-min/ferrous fumarate (MULTI VITAMIN ORAL) Take 1 tablet by mouth once daily. 0 Activeondansetron (ZOFRAN- ODT) disintegrating tablet 4 mg (1 source)Start: 07-37-2027ifbtcfqpcuu (ZOFRAN-ODT) disintegrating tablet 4 mg pantoprazole (PROTONIX) 40 mg in sodium chloride (PF) 10 mL injection (1 source)Start: 00-90-128472 mg, IntraVENous, EVERY 12 HOURS, First dose on Wed01/02/22 at 2300 Reconstitute with 10 mL 0.9 %sodium chloride and administer over at least 2 minutes.PARoxetine hydrochloride 40 mg oral tablet (20 sources)Serotonin Reuptake InhibitorStart: 08-11-2024 End: 90-47-5701ftkrxzvqpd 40 mg Tab Refills(s) 0 Start Date: 04/25/25 Status: Ordered Medication Dispense Status: Completed Total Allowed Fills: 1 Fills Dispensed: 0Start: 02-15-2024 End: 51-79-1532bitg 1 tablet by mouth once daily in the morningPARoxetine (Paxil) 40 MG tablet Indications: Generalized anxiety disorder TAKE 1 TABLET BY MOUTH EVERY DAY IN THE MORNING 90 tablet 3 08/11/2024 ActiveStart: 04-28-2023 End: 63-46-1623ivpd 1 tablet by mouth once dailyParoxetine Hcl 30 mg Tablet Discontinued 30 MG PO Daily 30 30 0 May 07, 2023 12:00am February 15, 2024 10:09amStart: 22-71-6816vzba 30 mg by mouth once daily in the xtqscee32 mg, Oral, EVERY MORNING, First dose on Wed01/05/22 at 0900, Until Discontinued Probiotic Product (PROBIOTIC-10 PO) (1 source)take 1 capsule by mouth once dailyProbiotic Product (PROBIOTIC-10 PO) Take 1 capsule by mouth daily 0 [id number] ml sodium chloride 9 mg/ml injection (4 [...] or less into rate field of order.Start: 66-85-2469dlzf 1 dose intravenously twice daily5-40 mL, IntraVENous, [...] Midline or Central Line = 20 mL/lumenStart: 92-40-9547nsfa 5-40 mL intravenously once as needed5-40 mL, [...] oral tablet (20 sources)Aldosterone AntagonistStart: 10-13-2024 End: 15-27-9474ohnr 1 tablet by mouth once dailyspironolactone (Aldactone) 25 MG tablet Indications: Chronic systolic CHF (congestive heart failure), NYHA class 2 (HCC) Take 1 tablet (25 mg) by mouth Daily 90 tablet 3 01/17/2025 Active Start: 08-31-2024 End: 70-21-6116Sskhxmmaqwnnsc 25 mg tablet Discontinued 12.5 MG PO Daily 15 30 2 August 31, 2024 1:00am October 13, 2024 9:58amStart: 07-16-2024 End: 44-96-2014ghwo 1 tablet by mouth once dailySpironolactone 25 mg tablet Discontinued 25 MG PO Daily July 16, 2024 1:00am August 31, 2024 11:09am Start: 03-27-2024 End: 65-91-0998Msbsryvxeadfjn 25 mg tablet Discontinued 12.5 MG PO Every morning May 16, 2024 1:00am June 16, 2024 7:21pmStart: 03-27-2024 End: 62-74-0285ndon 12.5 mg by mouth once daily in the morningSpironolactone Active 12.5 MG PO Every morning May 16, 2024 12:00amStart: 02-05-2024 End: 55-03-8314gzhy 1 tablet by mouth once dailySpironolactone 25 mg Tablet Discontinued 25 MG PO Daily 90 90 0 February 08, 2024 12:00am March 27, 2024 11:44amtamsulosin hydrochloride 0.4 mg oral capsule (20 sources)alpha-Adrenergic BlockerStart: 55-39-9845czcv 1 capsule by mouth once dailyTamsulosin (Flomax) 0.4 mg capsule Active 0.4 MG PO Daily May 09, 2025 12:00am Complies with drug therapyStart: 41-86-9489ykxh 1 capsule by mouth every twenty-four hours at bedtimetamsulosin (Flomax) 0.4 MG 24 hr capsule Take 1 capsule by mouth at bedtime 05/16/2024 ActiveStart: 04-28-2023 End: 10-87-1399wnqq 1 capsule by mouth once dailyTamsulosin 0.4 mg Capsule Discontinued 0.4 MG PO Daily 30 30 0 May 07, 2023 12:00am May 16, 2024 1:54pmVitamin D (2 sources)Start: 29-75-9869wmrp 1 dose by mouth every weekVitamin D International_Unit, Oral, qWeek, Refills(s) 0 Start Date: 04/25/25 Status: Ordered Medication Dispense Status: Completed Total Allowed Fills: 1 Fills Dispensed: 0Start: 62-24-9730Mcdujxe D International_Unit, Oral, qWeek, Refills(s) 0 Start Date: 04/25/25 Status: Ordered Repeatnumber: 1Vitamin D3 [id number] UNIT/GM (4 sources)Vitamin D3 4394926 UNIT/GM as directed Active Completed/Discontinued Medications MedicationDrug Class(es)DatesSig (Normalized)Sig (Original)acetaminophen 500 mg oral tablet (20 sources)Start: 05-03-2023 End: 20-81-6493azpd 1 tablet by mouth every six hoursAcetaminophen 500 mg Tablet Discontinued 500 MG PO Every 6 hours 90 0 May 07, 2023 12:00am August 31, 2023 3:53pmStart: 05-03-2023 End: 39-80-0756cgys 1-3 tablets by mouth every four hours as needed for pain Acetaminophen (Tylenol) 325 mg Tablet Discontinued 650 MG PO Q4H as needed for Pain Scale 1 - 3 or fever 0 0 May 03, 2023 12:00am May 03, 2023 5:10pmStart: 05-03-2023 End: 72-53-0361glvw 2 tablets by mouth every four hoursAcetaminophen (Tylenol) 325 mg Tablet Discontinued 650 MG PO Q4H 0 May 02, 2023 11:00pm May 03, 2023 4:10pmStart: 48-34-4907pfzktqaroumdr (TYLENOL) tablet 1,000 mg Acetaminophen Extra Strength 500 MG tablet Daily. Activeacetaminophen 325 mg / HYDROcodone bitartrate 5 mg oral tablet (20 sources)Opioid AgonistStart: 05-03-2023 End: 54-09-7679nndb 1 tablet by mouth every four hours [...] 4-6 hrs for 7 days ROSEANN # [id number] Activetake 1 tablet by mouth every six hoursHYDROcodone-Acetaminophen 5-325 MG 1 tablet as needed Orally every 6 hrs Activealuminum hydroxide 40 mg/ml / magnesium hydroxide 40 mg/ml / simethicone 4 mg/ml oral suspension (20 sources)Start: 05-03-2023 End: 20-67-2523usee 1 mL by mouth every four hours as neededAlum-Mag Hydroxide- Simeth (Mag-Al Plus) 200-200-20 mg/5 mL Suspension Discontinued 30 ML PO Q4H as needed for Epigastric distress (Non-Card) 0 0 May 03, 2023 12:00am May 03, 2023 5:10pmamoxicillin 875 mg / clavulanate 125 mg oral tablet (2 sources)Penicillin-class AntibacterialStart: 04-17-2024 End: 33-47-3090uqeu 1 tablet by mouth in the morningamoxicillin-clavulanate (Augmentin) 875-125 MG tablet Indications: Bronchitis Take 1 tablet (875 mg) by mouth in the morning and 1 tablet (875 mg) before bedtime. Do all this for 5 days. 14 tablet 04/17/2024 04/22/2024 Expiredascorbic acid 500 mg oral tablet (20 sources)Vitamin CStart: 05-03-2023 End: 13-80-8146gowd 1 tablet by mouth once dailyAscorbic Acid (Vitamin C) (Vitamin C) 500 mg Tablet Discontinued 500 MG PO Daily 30 0 April 12:00am September 05, 2023 3:28pm End: 26-95-7964hlya 1 tablet by mouth once dailyascorbic acid (Vitamin C) 100 mg tablet Take 1 tablet (100 mg) by mouth once daily. 0 08/16/2023 Discontinued (Therapy completed)bisacodyl 10 mg rectal suppository (20 sources)Stimulant LaxativeStart: 05-03-2023 End: 45-03-2939Ospdvgttw 10 mg Suppository Discontinued 10 MG CA Daily as needed for Constipation 0 0 May 03, 2023 12:00am May 03, 2023 5:10pmStart: 05-03-2023 End: 10-59-8164wfom 2 tablets by mouth once daily as needed for constipation Bisacodyl 5 mg Tablet,Delayed Release (Dr/Ec) Discontinued 10 MG PO Daily as needed for Constipation 0 0 May 03, 2023 12:00am May 03, 2023 5:10pm Start: 05-03-2023 End: 47-43-7244kjxj 10 mg by mouth once dailyBisacodyl Discontinued 10 MG PO Daily 0 May 02, 2023 11:00pm May 03, 2023 4:10pmStart: 01-02-2022 take 10 mg rectal route once daily as gdnzyk23 mg, Rectal, DAILY PRN, Starting on Wed01/02/22 at 2231, Until Discontinued, Constipation First line therapy for constipationbismuth subsalicylate 17.5 mg/ml oral suspension (20 sources)BismuthStart: 09-05-2023 End: 87-34-0348djgo 300 mg by mouth four times dailyBismuth Subsalicylate (Stomach Relief) 262 mg/15 mL Suspension Discontinued 300 MG PO Four times daily 824.429 12 0 September 054 1:00am October 21, 2023 8:40amcalcium carbonate 1250 mg / cholecalciferol 200 unt oral tablet (6 sources)Vitamin DStart: 05-03-2023 End: 19-29-1350llua 1 tablet by mouth once at mealtimeCalcium Carbonate-Vitamin D3 (Oyster Shell Calcium-Vit D3) 500 mg-5 mcg (200 unit) Tablet Discontinued 1 TAB PO 3x/Day with meals May 07, 2023 12:00am August 31, 2023 4:56pmCalcium Carbonate-Vitamin D3 (Oyster Shell Calcium-Vit D3) 500 mg-5 mcg (200 unit) Tablet (20 sources)Start: 05-07-2023 End: 64-77-8239itec 1 tablet by mouth once at mealtimeCalcium Carbonate-Vitamin D3 (Oyster Shell Calcium-Vit D3) 500 mg-5 mcg (200 unit) Tablet Discontinued 1 TAB PO 3x/Day with meals May 06, 2023 11:00pm August 31, 2023 3:56pmStart: 05-07-2023 End: 13-87-2073domx 1 tablet by mouth once at mealtimeCalcium Carbonate-Vitamin D3 (Oyster Shell Calcium-Vit D3) 500 mg-5 mcg (200 unit) Tablet Discontinued 1 TAB PO 3x/Day with meals May 07, 2023 12:00am August 31, 2023 4:56pmStart: 60-41-8930uftt 1 tablet by mouth once at mealtimeCalcium Carbonate- Vitamin D3 (Oyster Shell Calcium-Vit D3) 500 mg-5 mcg (200 unit) Tablet Active 1 TAB PO 3x/Day with meals May 06, 2023 11:00pmStart: 64-34-8364ysng 1 tablet by mouth once at mealtimeCalcium Carbonate-Vitamin D3 (Oyster Shell Calcium-Vit D3) 500 mg-5 mcg (200 unit) Tablet Active 1 TAB PO 3x/Day with meals May 07, 2023 12:00amStart: 05-03-2023 End: 94-60-8309siby 1 tablet by mouth once at mealtimeCalcium Carbonate-Vitamin D3 (Oyster Shell Calcium-Vit D3) 500 mg-5 mcg (200 unit) Tablet Discontinued 1 TAB PO 3x/Day with meals 0 May 02, 2023 11:00pm May 07, 2023 1:27pm Start: 05-03-2023 End: 31-92-9230hezv 1 tablet by mouth once at mealtimeCalcium Carbonate-Vitamin D3 (Oyster Shell Calcium-Vit D3) 500 mg-5 mcg (200 unit) Tablet Discontinued 1 TAB PO 3x/Day with meals 0 May 03, 2023 12:00am May 07, 2023 2:27pm Start: 66-30-3061dhra 1 tablet by mouth once at mealtimeCalcium Carbonate- Vitamin D3 (Oyster Shell Calcium-Vit D3) 500 mg-5 mcg (200 unit) Tablet Active 1 TAB PO 3x/Day with meals 0 May 03, 2023 12:00amcalcium chloride 0.0014 meq/ml / potassium chloride 0.004 meq/ml / sodium chloride 0.103 meq/ml / sodium lactate 0.028 meq/ml injectable solution (1 source)Start: 01-02-2022 End: 03-30-7292PmqfwEHXdak, at 125 mL/hr, CONTINUOUS, Starting on Wed01/02/22 at 2300clopidogrel 75 mg oral tablet (20 sources)P2Y12 Platelet InhibitorStart: 08-16-2023 End: 67-05-8107siho 1 tablet by mouth once dailyClopidogrel 75 mg tablet Discontinued 75 MG PO Daily August 31, 2023 1:00am February 08, 2024 1:25pm collagenase Clostridium histolyticum (4 sources)Start: 23-31-3033Kujnmpp Apr, 0.01 mgcyclobenzaprine hydrochloride 5 mg oral tablet (20 sources)Muscle RelaxantStart: 05-07-2023 End: 29-35-9093kbgq 1 tablet by mouth every eight hours [...] (20 sources)Sodium-Glucose Cotransporter 2 InhibitorStart: 08-30-2024 End: 80-34-0281vzvz 1 tablet by mouth once dailyDapagliflozin Propanediol (Farxiga) 10 mg tablet Discontinued 10 MG PO Daily August 31, 2024 1:00am April 06, 2025 9:44amempagliflozin 10 mg oral tablet (20 sources)Sodium-Glucose Cotransporter 2 InhibitorStart: 03-27-2024 End: 60-63-8936bcyw 1 tablet by mouth once dailyEmpagliflozin (Jardiance) 10 mg tablet Discontinued 10 MG PO Daily 30 30 2 March 27, 2024 12:00am May 16, 2024 1:44pm0.4 ml enoxaparin sodium 100 mg/ml prefilled syringe (20 sources)Low Molecular Weight HeparinStart: 05-03-2023 End: 65-05-2386Jadovzpewo (Lovenox) 40 mg/0.4 mL Syringe Discontinued 40 MG SUBCUT DAILY@1000 0 15 0 April 12:00am May 07, 2023 2:27pm Start: 42-06-1855nqtdtyazub (LOVENOX) injection 40 mgferrous sulfate 324 mg delayed release oral tablet (20 sources)Start: 05-07-2023 End: 64-46-4810altm 1 tablet by mouth once dailyFerrous Sulfate 324 mg (65 mg iron) Tablet,Delayed Release (Dr/Ec) Discontinued 324 MG PO Daily 30 0 May 07, 2023 12:00am August 31, 2023 4:51pmtake 1 tablet by mouth once daily at mealtimeferrous sulfate, 325 mg ferrous sulfate, (iron) tablet Take 1 tablet (325 mg) by mouth once daily with a meal. 0 Jxcurk275 ml fluconazole 2 mg/ml injection (1 source)Azole AntifungalStart: 01-02-2022 End: 36-09-6146aursmylyocj (DIFLUCAN) 400 mg IVPBfurosemide 20 mg oral tablet (20 sources)Loop DiureticStart: 08-09-2024 End: 65-89-9598txsy 1 tablet by mouth once daily in the morningFurosemide 20 mg tablet Discontinued 0 .ROUTE .COMPLEX 90 1 August 09, 2024 12:46pm August 31, 2024 11:10am TAKE 1 TABLET BY MOUTH EVERY DAY AT 8 AMStart: 07-17-2024 End: 08-00-6892xbqy 1 tablet by mouth once dailyFurosemide 20 mg Tablet Discontinued 20 MG PO Daily at 0800 30 1 July 17, 2024 1:00am August 09, 2024 12:47pmStart: 02-15-2024 End: 43-60-9306nskm 1 tablet by mouth once dailyFurosemide (Lasix) 20 mg tablet Discontinued 20 MG PO Daily February 15, 2024 12:00am February 15, 2024 10:58am Start: 08-31-2023 End: 38-61-0639Dkylenniro Discontinued MG TABLET August 31, 2023 12:00am September 05, 2023 2:28pmStart: 08-16-2023 End: 83-69-1611jtax 1 tablet by mouth once daily as neededFurosemide 20 mg tablet Discontinued 20 MG PO Daily as needed for as instructed 0 90 0 September 03, 2023 11:53am October 21, 2023 8:40am End: 86-98-3090zlwa 10 mg by mouth once dailyfurosemide (Lasix) 20 MG tablet Take 10 mg by mouth Daily 08/30/2024 Discontinued (Therapy completed)Insulin Aspart U-100 (Novolog Flexpen U-100 Insulin) 100 unit/mL (3 mL) insulin pen (20 sources)Start: 05-03-2023 End: 30-21-4682Undanud Aspart U-100 (Novolog Flexpen U-100 Insulin) 100 unit/mL (3 mL) insulin pen Discontinued 0 units SUBCUT Before meals and at bedtime May 03, 2023 5:09pm May 07, 2023 2:27pm Please contact the information source for Protocol details.Start: 05-03-2023 End: 18-67-1031Xjurmfx Aspart U-100 (Novolog Flexpen U-100 Insulin) 100 unit/mL (3 mL) insulin pen Discontinued 0 units SUBCUT Before meals and at bedtime May 03, 2023 4:09pm May 07, 2023 1:27pm Please contact the information source for Protocol details.Start: 05-03-2023 End: 60-56-1383Skmtuyy Aspart U-100 (Novolog Flexpen U-100 Insulin) 100 unit/mL (3 mL) insulin pen Discontinued 0 units SUBCUT Before meals and at bedtime May 03, 2023 4:09pm May 07, 2023 1:27pmStart: 05-03-2023 End: 10-26-7452Ihsxqah Aspart U-100 (Novolog Flexpen U-100 Insulin) 100 unit/mL (3 mL) insulin pen Discontinued 0 units SUBCUT Before meals and at bedtime May 03, 2023 5:09pm May 07, 2023 2:27pmStart: 04-28-2023 End: 86-81-0307lyixxh 8 [IU] by subcutaneous injection once daily before dinner Insulin Aspart U-100 (Novolog Flexpen U-100 Insulin) 100 unit/mL (3 mL) insulin pen Discontinued 8 UNIT SUBCUT once daily before dinner April 27, 2023 11:00pm May 03, 2023 4:10pmStart: 04-28-2023 End: 02-71-0364ylngxy 5 [IU] by subcutaneous injection after breakfastInsulin Aspart U-100 (Novolog Flexpen U-100 Insulin) 100 unit/mL (3 mL) insulin pen Discontinued 5 UNIT SUBCUT After breakfast and lunch April 27, 2023 11:00pm May 03, 2023 4:10pmStart: 04-28-2023 End: 53-66-8472slcyrt 8 [IU] by subcutaneous injection once daily before dinner Insulin Aspart U-100 (Novolog Flexpen U-100 Insulin) 100 unit/mL (3 mL) insulin pen Discontinued 8 UNIT SUBCUT once daily before dinner April 28, 2023 12:00am May 03, 2023 5:10pmStart: 04-28-2023 End: 73-72-2597ggkhgz 5 [IU] by subcutaneous injection after breakfastInsulin Aspart U-100 (Novolog Flexpen U-100 Insulin) 100 unit/mL (3 mL) insulin pen Discontinued 5 UNIT SUBCUT After breakfast and lunch April 28, 2023 12:00am May 03, 2023 5:10pmStart: 90-86-1442jyiecj 8 [IU] by subcutaneous injection once daily before dinnerInsulin Aspart U-100 (Novolog Flexpen U-100 Insulin) 100 unit/mL (3 mL) insulin pen Active 8 UNIT SUBCUT once daily before dinner April 28, 2023 12:00amStart: 17-28-1164oaczik 5 [IU] by subcutaneous injection after breakfastInsulin Aspart U-100 (Novolog Flexpen U-100 Insulin) 100 unit/mL (3 mL) insulin pen Active 5 UNIT SUBCUT After breakfast and lunch April 28, 2023 12:00amInsulin Aspart U-100 (Novolog U-100 Insulin Aspart) 100 unit/mL solution (20 sources)Start: 08-31-2023 End: 61-47-0779Stfzwey Aspart U-100 (Novolog U-100 Insulin Aspart) 100 unit/mL solution Discontinued 50 UNIT CNTSUBQINF Daily August 31, 2023 12:00am September 05, 2023 2:28pm per insulin pumpStart: 08-31-2023 End: 08-64-5856Xiholse Aspart U-100 (Novolog U-100 Insulin Aspart) 100 unit/mL solution Discontinued 50 UNIT CNTSUBQINF Daily August 31, 2023 1:00am September 05, 2023 3:28pm per insulin pumpInsulin Disposable Pump (Omnipod DASH PDM, Gen 4,) kit (20 sources)Start: 05-30-2024 End: 52-80-6155Ujnkvsz Disposable Pump (Omnipod DASH PDM, Gen 4,) kit 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) Basal: 12A 0.3, 7A 0.4, 9P 0.5, 10 units breakfast, 8 units with lunch, 7 dinner, ISF: 75 1 each 05/30/2024 05/02/2025 Discontinued (Therapy completed) Start: 17-97-9430Xymzbpv Disposable Pump (Omnipod DASH PDM, Gen 4,) kit 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) Basal: 12A 0.3, 7A 0.4, 9P 0.5, 10 units breakfast, 8 units with lunch, 7 dinner, ISF: 75 1 each 05/30/2024 ActiveStart: 31-71-8069Hgbqckf Disposable Pump (Omnipod DASH PDM, Gen 4,) kit Indications: Diabetes mellitus secondary to p ancreatic insufficiency (CMS/HCC) Basal: 12A 0.3, 7A 0.4, 9P 0.5, 10 units breakfast, 8 units with lunch, 7 dinner, ISF: 75 1 each 05/30/2024 ActiveStart: 02-04-2023 End: 21-72-3318Dageact Disposable Pump (Omnipod DASH PDM, Gen 4,) kit Indications: 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) Basal: 12A 0.3, 7A 0.4, 9P 0.5, 6 units breakfast/lunch, 7 dinner, ISF: 75 1 each 02/04/2023 05/30/2024 Discontinued (Reorder)Start: 34-56-8985Dpvjpyf Disposable Pump (Omnipod DASH PDM, Gen 4,) kit Indications: 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) Basal: 12A 0.3, 7A 0.4, 9P 0.5, 6 units breakfast/lunch, 7 dinner, ISF: 75 1 each 02/04/2023 Activeinsulin regular (HUMULIN R;NOVOLIN R) 100 Units in sodium chloride 0.9 % 100 mL infusion (1 source)Start: 01-02-2022 End: 72-34-8934bdpxaqp regular (HUMULIN R;NOVOLIN R) 100 Units in sodium chloride 0.9 % 100 mL infusioniohexol (OMNIPAQUE 240) injection 100 mL (1 source)Start: 01-05-2022 End: 58-10-7312fhwhiem (OMNIPAQUE 240) injection 100 mL10 ml iron sucrose 20 mg/ml injection (20 sources)Parenteral Iron ReplacementStart: 02-18-2024 End: 08-01-3957Zfnb Sucrose (Venofer) 200 mg iron/10 mL solution Discontinued 100 MG IV 3 Times a week 0 February 18, 2024 12:00am March 15, 2024 10:49am administer over 30 minslactobacillus acidophilus [id number] unt oral capsule (20 sources)Start: 08-31-2023 End: 55-50-6305pdwb 10 capsules by mouth once dailyLactobacillus Acidophilus (Probacap) 10 billion cell capsule Discontinued 100 MMU CELLS PO Daily August 31, 2023 1:00am September 05, 2023 3:28pm End: 94-15-4732Wvbnrzbcxktnn (Probiotic Acidophilus) capsule 1 capsule 1 (one) time each day at the same time. 05/02/2025 Discontinued (Therapy completed) lidocaine hydrochloride 10 mg/ml injectable solution (20 sources)Antiarrhythmic, Amide Local AnestheticStart: 05-03-2023 End: 71-20-6839Rpdmtxtja Hcl (Xylocaine) 10 mg/mL (1 %) Solution Discontinued 0.1 ML INTRADERMA Pre-Op as needed for Venipuncture x 1 Dose 0 0 May 03, 2023 12:00am May 03, 2023 5:10pmlisinopril 2.5 mg oral tablet (20 sources)Angiotensin Converting Enzyme InhibitorStart: 03-27-2024 End: 76-21-2840kiga 1 tablet by mouth once daily in the morningLisinopril 2.5 mg tablet Discontinued 2.5 MG PO Every morning May 16, 2024 1:00am April 06, 2025 9:44amloratadine 10 mg oral tablet (20 sources)Start: 10-26-2023 End: 43-01-9833ping 1 tablet by mouth once dailyloratadine (Claritin) 10 MG tablet Take 1 tablet by mouth Daily 10/26/2023 05/02/2025 Discontinuedtake 1 tablet by mouth every twenty-four hoursClaritin 10 MG 1 tablet Orally Once a day Activemagnesium hydroxide 80 mg/ml oral suspension (20 sources)Start: 05-03-2023 End: 15-18-3037dlfz 1 mL by mouth twice daily as needed for constipation Magnesium Hydroxide (Milk Of Magnesia) 400 mg/5 mL Suspension Discontinued 30 ML PO Twice daily as needed for Constipation 0 0 May 03, 2023 12:00am May 07, 2023 2:27pmStart: 05-03-2023 End: 50-45-4031qffl 1 mL by mouth twice daily as needed for constipation Magnesium Hydroxide (Milk Of Magnesia) 400 mg/5 mL Suspension Discontinued 30 ML PO Twice daily as needed for Constipation 0 May 03, 2023 12:00am May 07, 2023 2:27pmStart: 05-03-2023 End: 33-37-6902mqjf 1 mL by mouth twice daily as needed for constipation Magnesium Hydroxide (Milk Of Magnesia) 400 mg/5 mL Suspension Discontinued 30 ML PO Twice daily as needed for Constipation 0 May 02, 2023 11:00pm May 07, 2023 1:27pmStart: 05-03-2023 End: 36-28-4612sjwh 1 mL by mouth twice dailyMagnesium Hydroxide (Milk Of Magnesia) 400 mg/5 mL Suspension Discontinued 30 ML PO Twice daily 0 May 02, 2023 11:00pm May 07, 2023 1:27pmStart: 05-03-2023 End: 16-70-3110behv 1 mL by mouth twice dailyMagnesium Hydroxide (Milk Of Magnesia) 400 mg/5 mL Suspension Discontinued 30 ML PO Twice daily 0 May 03, 2023 12:00am May 07, 2023 2:27pmStart: 56-09-5442lslx 1 mL by mouth twice dailyMagnesium Hydroxide (Milk Of Magnesia) 400 mg/5 mL Suspension Active 30 ML PO Twice daily 0 2022 12:00ammagnesium oxide 400 mg oral tablet (1 source)Start: 01-07-2022 End: 20-99-3029hfmrwvbht oxide (MAG-OX) tablet 400 mg50 ml magnesium sulfate 40 mg/ml injection (1 source)Start: 01-05-2022 End: 58-65-1993qdbaiaqew sulfate 2000 mg in 50 mL IVPB premixmethocarbamol (ROBAXIN) 750 mg in dextrose 5 % 100 mL IVPB (1 source)Start: 01-02-2022 End: 06-57-2911878 mg, IntraVENous, at 200 mL/hr, Administer over 30 Minutes, EVERY 6 HOURS, First dose on Wed01/02/22 at 2300metroNIDAZOLE 500 mg oral tablet (20 sources)Nitroimidazole AntimicrobialStart: 09-05-2023 End: 08-24-1691feki 1 tablet by mouth three times dailyMetronidazole 500 mg Tablet Discontinued 500 MG PO Three times daily 36 12 0 September 05, 2023 1:0 0am October 21, 2023 8:41amMultiple Vitamins-Minerals (Centrum Silver 50+Men) tablet (20 sources) End: 69-10-6890ovqm 1 tablet by mouth once dailyMultiple Vitamins-Minerals (Centrum Silver 50+Men) tablet Take 1 tablet by mouth 1 (one) time each day. 05/02/2025 Discontinuedtake 1 tablet by mouth once dailyMultiple Vitamins- Minerals (Centrum Silver 50+Men) tablet Take 1 tablet by mouth 1 (one) time each day. ZpafcaMypqzhxzkhtn-Scrdnskk-Yhppas (Multivitamin 50 Plus) tablet (20 sources)Start: 08-31-2023 End: 72-62-4274Aqgazaflebyu-Minerals-Lutein (Multivitamin 50 Plus) tablet Discontinued 1 TAB PO Daily August 31, 2023 1:00am February 08, 2024 1:25pm On Hold: duplicateStart: 08-31-2023 End: 63-20-5286Oqckknjcvsus-Minerals-Lutein (Multivitamin 50 Plus) tablet Discontinued 1 TAB PO Daily August 31, 2023 12:00am February 08, 2024 12:25pm On Hold: duplicateStart: 08-31-2023 End: 85-51-4345Txzpzkqmkxbg-Minerals-Lutein (Multivitamin 50 Plus) tablet Discontinued 1 TAB PO Daily August 31, 2023 12:00am February 08, 2024 12:25pm Start: 08-31-2023 End: 56-70-0019Iguqwunfaqti-Minerals-Lutein (Multivitamin 50 Plus) tablet Discontinued 1 TAB PO Daily August 31, 2023 1:00am February 08, 2024 1:25pm Start: 92-80-5845Pauxdkhdkiaf-Minerals-Lutein (Multivitamin 50 Plus) tablet Active 1 TAB PO Daily August 31, 2023 1:00amnitroglycerin 0.4 mg sublingual tablet (20 sources)Nitrate VasodilatorStart: 05-03-2023 End: 08-47-8971Sykkvaljizgys 0.4 mg tablet, sublingual Discontinued 0.4 MG SUBLINGUAL Q5M as needed for chest pain30 2 July 16, 2023 1:00am September 05, 2023 3:28pm until response; do not exceed 3 doses per eventNitroglycerin 0.4 MG as directed Sublingual Activeomeprazole 20 mg delayed release oral capsule (20 sources)Proton Pump InhibitorStart: 05-16-2024 End: 38-35-0228dacg 1 capsule by mouth twice dailyOmeprazole 20 mg capsule,delayed release(DR/EC) Discontinued 20 MG PO Twice daily May 16, 2024 1:00am August 31, 2024 11:10amStart: 04-05-2024 End: 66-10-8306Vhosqdtsau Magnesium 20 mg tablet Take 20 mg by mouth. 04/05/2024 04/05/2025 Activepantoprazole 40 mg oral granules (20 sources)Proton Pump InhibitorStart: 02-08-2024 End: 80-33-6790tddb 40 mg by mouth twice dailyPantoprazole (Protonix) [address] for susp in packet Discontinued 40 MG PO Twice daily 180 90 0 February 08, 2024 12:00am February 15, 2024 10:08amStart: 11-11-2023 End: 19-08-1774hhyu 1 tablet by mouth once daily, then take 1 tablet by mouth once dailyPantoprazole (Protonix) 40 mg tablet,delayed release (DR/EC) Discontinued 40 MG PO Daily 180 90 0 November 11, 2023 1:22pm February 08, 2024 1:25pm 40 mg p.o. twice daily x 2 weeks, followed by 40 mg p.o. daily. Please dispense accordingly.Start: 09-03-2023 End: 29-05-6056oknz 1 tablet by mouth twice daily, then take 1 tablet by mouth once dailyPantoprazole (Protonix) 40 mg tablet,delayed release (DR/EC) Discontinued 40 MG PO Twice daily 180 90 0 February 08, 2024 1:22pm May 16, 2024 1:54pm 40 mg p.o. twice daily x 2 weeks, followed by 40 mg p.o. daily. Please dispense accordingly.Start: 28-88-9656ggoe 1 tablet by mouth once daily before breakfastpantoprazole (PROTONIX) 40 MG tablet Take 1 tablet by mouth every morning (before breakfast) 90 tablet 1 01/07/2022 ActiveStart: 01-07-2022 take 1 tablet by mouth once daily before breakfastpantoprazole (PROTONIX) 40 MG tablet Take 1 tablet by mouth every morning (before breakfast) 90 tablet 1 01/07/2022 Active End: 81-27-3493whqi 1 tablet by mouth before mealtimepantoprazole (ProtoNix) 40 MG EC tablet Take 40 mg by mouth in the morning. Take before meals. Do not crush, chew, or split. 05/02/2025 Discontinuedpiperacillin-tazobactam (ZOSYN) 3,375 mg in dextrose 5 % 50 mL IVPB (mini-bag) (2 sources)Start: 01-02-2022 End: 04-62-7147dtyhkizbfoin-tazobactam (ZOSYN) 3,375 mg in dextrose 5 % 50 mL IVPB (mini-bag)Start: 01-02-2022 End: 34-21-0278xsllhrdpaiqi-tazobactam (ZOSYN) 3,375 mg in dextrose 5 % 50 mL IVPB (mini-bag)potassium bicarbonate 20 meq effervescent oral tablet (1 source)Start: 01-07-2022 End: 04-05-1687hwzmddpbq bicarb-citric acid (EFFER-K) effervescent tablet 40 mEq microencapsulated potassium chloride 20 meq extended release oral tablet (20 sources)Start: 05-03-2023 End: 73-55-3764Qyfjmgzqb Chloride (Klor-Con M20) 20 mEq Tablet,Er Particles/Crystals Discontinued 40 MEQ PO STAT as needed for Hypokalemia 0 0 May 03, 2023 12:00am May 03, 2023 5:10pmStart: 01-06-2022 End: 35-71-6979llcmzrkht chloride (KLOR-CON M) extended release tablet 40 mEq Start: 01-05-2022 End: 73-10-6059wviuqptzr chloride 10 mEq/100 mL IVPB (Peripheral Line)potassium phosphate 155 mg / sodium phosphate, dibasic 852 mg / sodium phosphate, monobasic 130 mg oral tablet (1 source)Start: 01-07-2022 End: 16-69-4587ppvdtlnjaf (K PHOS NEUTRAL) tablet 1 tabletpotassium phosphate 15 mmol in dextrose 5 % 250 mL IVPB (1 source)Start: 01-05-2022 End: 38-94-5927fefmgwlvz phosphate 15 mmol in dextrose 5 % 250 mL IVPBsacubitril 24 mg / valsartan 26 mg oral tablet (20 sources)Angiotensin 2 Receptor BlockerStart: 05-16-2024 End: 89-43-4749ypqx 1 tablet by mouth twice dailySacubitril-Valsartan (Entresto) 24-26 mg tablet Discontinued 1 TAB PO Twice daily May 16, 2024 1:00am June 16, 2024 7:21pmStart: 02-08-2024 End: 98-84-7752gwji 1 tablet by mouth twice dailySacubitril-Valsartan (Entresto) 24-26 mg Tablet Discontinued 1 TAB PO Twice daily 180 90 0 February 08, 2024 12:00am March 27, 2024 11:05am On Hold: hypotension End: 49-28-4400wxcb 1 tablet by mouth in the morningsacubitril-valsartan (Entresto) 24-26 MG tablet Take 1 tablet by mouth in the morning and 1 tablet b efore bedtime. 04/17/2024 Discontinued (Therapy completed)Sennosides (Senna Laxative) 8.6 mg Tablet (20 sources)Start: 05-03-2023 End: 15-74-7085iujo 2 tablets by mouth at bedtime as needed for constipation Sennosides (Senna Laxative) 8.6 mg Tablet Discontinued 2 TAB PO Bedtime as needed for constipation 0 May 03, 2023 12:00am May 03, 2023 5:10pm Start: 05-03-2023 End: 51-29-6437yxhg 2 tablets by mouth at bedtime as needed for constipation Sennosides (Senna Laxative) 8.6 mg Tablet Discontinued 2 TAB PO Bedtime as needed for constipation 0 May 02, 2023 11:00pm May 03, 2023 4:10pm Start: 05-03-2023 End: 57-58-0996wbmj 2 tablets by mouth at bedtimeSennosides (Senna Laxative) 8.6 mg Tablet Discontinued 2 TAB PO Bedtime 0 May 02, 2023 11:00pm May 03, 2023 4:10pmStart: 05-03-2023 End: 11-65-8529zbyt 2 tablets by mouth at bedtimeSennosides (Senna Laxative) 8.6 mg Tablet Discontinued 2 TAB PO Bedtime 0 May 03, 2023 12:00am May 03, 2023 5:10pmStart: 99-29-0231ofyv 2 tablets by mouth at bedtimeSennosides (Senna Laxative) 8.6 mg Tablet Active 2 TAB PO Bedtime 0 May 03, 2023 12:00amsennosides, intermediate 8.6 mg oral tablet (3 sources)Start: 05-03-2023 End: 68-50-8798lqdv 2 tablets by mouth at bedtime as needed for constipation Sennosides (Senna Laxative) 8.6 mg Tablet Discontinued 2 TAB PO Bedtime as needed for constipation 0 0 May 03, 2023 12:00am May 03, 2023 5:10pm sucralfate 1000 mg oral tablet (20 sources)Aluminum ComplexStart: 02-08-2024 End: 59-20-2216ympz 1 tablet by mouth every six hoursSucralfate 1 gram Tablet Discontinued 1 GM PO Every 6 hours 360 90 0 February 08, 2024 12:00am April 26, 2024 10:28amStart: 12-60-2973udyd 10 mL by mouth four times daily sucralfate (CARAFATE) 1 GM/10ML suspension Take 10 mLs by mouth 4 times daily 1200 mL 3 01/07/2022 ActiveStart: 22-61-0513lebg 10 mL by mouth four times daily sucralfate (CARAFATE) 1 GM/10ML suspension Take 10 mLs by mouth 4 times daily 1200 mL 3 01/07/2022 ActiveStart: 10-25-8805fmknoiepdt (CARAFATE) 1 GM/10ML suspension 1 gtetracycline hydrochloride 500 mg oral capsule (20 sources)Tetracycline-class AntimicrobialStart: 09-06-2023 End: 19-83-9619hhnz 1 capsule by mouth four times dailyTetracycline 500 mg capsule Discontinued 500 MG PO Four times daily 112 0 September 06, 2023 1:00am October 21, 2023 8:42amStart: 09-05-2023 End: 70-86-2859sauk 1 capsule by mouth four times dailyTetracycline 250 mg Capsule Discontinued 500 MG PO Four times daily 112 14 0 September 05, 2023 1:0 0am October 21, 2023 8:42amStart: 09-05-2023 End: 21-79-1273epji 500 mg by mouth four times dailyTetracycline Discontinued 500 MG PO Four times daily 112 14 September 05, 2023 12:00am October 7:42amticagrelor 90 mg oral tablet (20 sources)Start: 07-16-2023 End: 44-86-3056peyw 1 tablet by mouth twice dailyTicagrelor (Brilinta) 90 mg tablet Discontinued 90 MG PO Twice daily 180 3 July 16, 2023 1:00amFebruary 2023 3:28pmtriamcinolone acetonide 1 mg/ml topical cream (20 sources)CorticosteroidStart: 05-03-2023 End: 53-57-2380Tnkrpnluwfayl Acetonide 0.1 % Cream Discontinued 1 APPLIC TOPICAL Four times daily as needed for Irritation 15 0 May 07, 2023 12:00am October 28, 2023 10:38amStart: 34-74-4950Bcyholk -40 mg Apr, 40 mg Triamcinolone Acetonide 0.1 % 1 application Externally Two times a Week Active Triamcinolone Acetonide 0.1 % 1 application Externally Two times a Week Active valsartan 80 mg oral tablet (20 sources)Angiotensin 2 Receptor BlockerStart: 10-28-2023 End: 67-29-2704prtx 1 tablet by mouth once dailyValsartan 80 mg tablet Discontinued 80 MG PO Daily 90 90 1 October 28, 2023 12:00am February 08, 2024 1:25pmStart: 09-03-2023 End: 79-84-8440Btcwrdcvu 160 mg Tablet Discontinued 80 MG PO Daily 30 30 0 September 03, 2023 11:53am October 2:46pmStart: 09-03-2023 End: 41-38-6622fyms 80 mg by mouth once dailyValsartan Discontinued 80 MG PO Daily 30 30 September 03, 2023 10:53am October 28, 2023 1:46pmStart: 05-07-2023 End: 61-20-5041abvh 1 tablet by mouth once dailyValsartan 160 mg Tablet Discontinued 160 MG PO Daily 30 30 0 May 07, 2023 12:00am September 05, 2023 3:28pmStart: 05-03-2023 End: 43-06-0408tmns 1 tablet by mouth once dailyValsartan 80 mg Tablet Discontinued 80 MG PO Daily 0 0 May 03, 2023 12:00am May 07, 2023 2:27pm Problems Active Problems Problem ClassificationProblemDateDocumented DateEpisodic/ChronicAcute and unspecified renal failure (2 sources)Acute renal failure syndromeOnset: [id number] myocardial infarction (20 sources)Myocardial infarction; Translations: [Non-ST elevation (NSTEMI) myocardial infarction]Onset: 489756-90-2883ReqbdayUwuqronndmpuab/social admission (20 sources)Other reduced mobility; Translations: [Impaired mobility and activities of daily living]59-99-0604UyenpvvgVrlribe on above:Problem List clean-up per request of Phys. EHR CmteAnxiety disorders (20 sources)Mixed anxiety and depressive disorder; Translations: [Anxiety disorder, unspecified]Onset: 01-08-2023 Resolved: 678309-54-6931WcqviciRmewsie dysrhythmias (20 sources)Paroxysmal ventricular tachycardia; 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]92-25-4469MgniwyjYelbxev on above:Problem List clean-up per request of Phys. EHR CmteChronic kidney disease (2 sources)Chronic kidney diseaseOnset: 442023-23-5957VdinecmIbptxqh obstructive pulmonary disease and bronchiectasis (15 sources)Acute exacerbation of chronic obstructive airways disease; Translations: [Chronic obstructive pulmonary disease with (acute) exacerbation] Onset: 188958-50-0030ElnhzihYvvdyvt obstructive pulmonary disease and bronchiectasis (4 sources)Bronchitis; Translations: [Bronchitis, not specified as acute or chronic]58-31-6470LmvrmvflRwlivemzas disorders (20 sources)H/O: cardiac pacemaker in situ; Translations: [Presence of automatic (implantable) cardiac defibrillator]Onset: 025521-28-2791Wkqmlam Congestive heart failure; nonhypertensive (20 sources)Acute on chronic systolic heart failure; Translations: [Acute on chronic systolic (congestive) heart failure]Onset: 434808-50-9965Zbcbhoy Coronary atherosclerosis and other heart disease (20 sources)Double coronary vessel disease; Translations: [Atherosclerotic heart disease of [place] coronary artery without angina pectoris]Onset: 01-31-2019 63-62-5370QqvswzsKbfzlst on above:Problem List clean-up per request of Phys. EHR CmteCoronary atherosclerosis and other heart disease (20 sources)Patient post percutaneous transluminal coronary angioplasty; Translations: [Coronary angioplasty status]05-02-9065FfzggnjlKwpfzxddcf and other anemia (20 sources)Anemia; Translations: [Anemia, unspecified]16-48-9372BmgvippwNinjsps on above:Problem List clean-up per request of Phys. EHR CmteOutside Source Comment: Comment on above: Problem List clean-up per request of Phys. EHR Cmte Deficiency and other anemia (3 sources)Anemia, unspecified; Translations: [Anemia, unspecified]05-08-2023 EpisodicDiabetes mellitus without complication (20 sources)Insulin pump present; Translations: [Presence of insulin pump (external) (internal)]Onset: 643400-35-8369VbxaofuvYleorelwn of lipid metabolism (20 sources)Mixed hyperlipidemia; Translations: [Mixed hyperlipidemia]Onset: 571829-00-3689ZyfrfjoOvqyxuecep disorders (20 sources)Lewis's esophagus; 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]21-35-6535UpbkszzUfpxlhlsj hypertension (20 sources)Hypertensive disorder; Translations: [Essential (primary) hypertension]Onset: 662088-06-4808CmyjccoShujiegw of upper limb (1 source)Other fracture of upper end of left radius, initial encounter for closed fracture; Translations: [Other fracture of upper end of left radius, initial encounter for closed fracture]Onset: 59-54-7028GstitkkvYwpapqxdmbhiya ulcer (except hemorrhage) (20 sources)Perforation of stomach; Translations: [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]Onset: 01-06-2022 Resolved: 05-45-3096TilraliFeipfku on above:previous rupture with repair.Outside Source Comment: previous rupture with repair.Gastroduodenal ulcer (except hemorrhage) (20 sources)Acute gastric ulcer with perforation; Translations: [Acute gastric ulcer with perforation]Onset: 44-82-4657VxstaepwOxsvqwdconuogcue hemorrhage (20 sources)Melena; Translations: [Melena]14-76-3425MfygapfkUuiuvkjqjyrkg symptoms and ill-defined conditions (20 sources)Hematuria, unspecified; Translations: [Blood in urine]Onset: 06-05-2022 Resolved: 43-92-8188DdesddvbIstrs valve disorders (20 sources)Non-rheumatic mitral regurgitation ; Translations: [Nonrheumatic mitral (valve) insufficiency]Onset: 059573-88-4516TbocdvyGxsxpbrdaub of prostate (20 sources)Benign prostatic hyperplasia; Translations: [Benign prostatic hyperplasia without lower urinary tract symptoms]Onset: ChronicHypertension with complications and secondary hypertension (2 sources)Hypertensive heart disease with congestive heart failure; Translations: [Hypertensive heart diseasewith heart failure]68-97-2374Ykxnsxn Intestinal infection (20 sources)Infection caused by Helicobacter pylori; Translations: [Other specified bacterial intestinal infections]86-94-4007WnnekplrXpjm disorders (20 sources)Moderate major depression, single episode; Translations: [Major depressive disorder, single episode, moderate]Onset: hronic Nonspecific chest pain (1 source)Chest pain, unspecified; Translations: [Chest pain, unspecified]Onset: 29-37-2504VwyizjamUawgaykiuav deficiencies (20 sources)Deficiency of macronutrients; Translations: [Mild protein-calorie malnutrition]49-21-1979VaqiopgHroknzycmfci (20 sources)Osteoporosis; Translations: [Age-related osteoporosis without current pathological fracture]46-27-7253XdbnkiqBzqhgbi on above:Problem List clean-up per request of Phys. EHR CmteOutside Source Comment: Comment on above: Problem List clean-up per request of Phys. EHR CmteOther aftercare (2 sources)Post-discharge follow-up; Translations: [Encounter for follow-up examination after completed treatment for conditions other than malignant neoplasm]06-21-6614MyjgfxriFkokf aftercare (2 sources)Encounter for follow-up examination after completed treatment for conditions other than malignant neoplasm; Translations: [Unspecified follow-up examination]40-68-3685IlyjnbnzDmxly and ill-defined heart disease (20 sources)Left ventricular systolic dysfunction; Translations: [Other ill- defined heart diseases]19-98-3386UilvemqRirpyay on above:Problem List clean-up per request of Phys. EHR CmteOther and ill-defined heart disease (7 sources)Other ill-defined heart diseases; Translations: [Heart disease, unspecified]72-06-9256IiekalzOebas and ill-defined heart disease (3 sources)Mild left ventricular systolic dysfunction; Translations: [Other ill- defined heart diseases]05-71-4532KroztjkXidiqqm on above:Problem List clean-up per request of Phys. EHR CmteOther circulatory disease (4 sources)Orthostatic hypotension; Translations: [Orthostatic hypotension] 10-61-0661EfxsdnraDckro connective tissue disease (4 sources)Dupuytren contracture of right palm; Translations: [Palmar fascial fibromatosis [Dupuytren]]EpisodicOther diseases of kidney and ureters (3 sources)Hydronephrosis; Translations: [Unspecified hydronephrosis]Onset: 51-61-5943LeddepmoUuzzj fractures (20 sources)Fracture of spinous process of cervical vertebra; Translations: [Fracture of neck, unspecified, initial encounter]30-54-1333LqznfczoCykwv fractures (20 sources)Fracture of cervical spine; Translations: [Fracture of neck, unspecified, initial encounter]45-84-6621AwdnusicVdbft fractures (20 sources)Closed fracture of vertebral column; Translations: [Closed fracture of vertebra]15-81-5856WovtsmwaPzsgj fractures (20 sources)Closed fracture of fifth cervical vertebra; Translations: [Unspecified displaced fracture of fifth cervical vertebra, initial encounter for closed fracture]59-66-8791EufqlqfgWnfbw fractures (2 sources)Unspecified displaced fracture of fifth cervical vertebra, initial encounter for closed fracture; Translations: [Closed fracture of fifth cervical vertebra]95-97-8699NefwfjhySwgxu gastrointestinal disorders (2 sources)Viscus structure finding; Translations: [Other specified symptoms and signs involving the digestivesystem and abdomen]Onset: 85-99-5765PawpejtiNtoyv lower respiratory disease (2 sources)Orthopnea; Translations: [Orthopnea]Onset: 728347-45-9711 EpisodicOther lower respiratory disease (1 source)Orthopnea; Translations: [Orthopnea]Onset: 75-13-6116GeqrxjrbXclhn lower respiratory disease (9 sources)Pleuritic pain; Translations: [Pleurodynia]31-88-4640LsxrcekcKzziv lower respiratory disease (2 sources)Lower respiratory tract infection; Translations: [Unspecified acute lower respiratory infection]94-82-7061IdoqljpoHoovg nervous system disorders (6 sources)Carpal tunnel syndrome; Translations: [Carpal tunnel syndrome, left upper limb]55-13-0279TsdekxvWqfzd nervous system disorders (7 sources)Other acute postprocedural pain; Translations: [Pain in joint, pelvic region and thigh]51-99-8498MyuxgaglIuorj nutritional; endocrine; and metabolic disorders (1 source)Hypomagnesemia; Translations: [Hypomagnesemia]Onset: 31-01-9150Afdufmx Other screening for suspected conditions (not mental disorders or infectious disease) (20 sources)Raised cardiac enzyme or marker; Translations: [Other specified abnormal findings of blood chemistry]Onset: 862144-47-9546QvqazzmwKlttkme on above:Problem List clean-up per request of Phys. EHR CmtePancreatic disorders (not diabetes) (20 sources)Pancreatic insufficiency; Translations: [Other specified diseases of pancreas]Onset: 370123-36-2379BipifcskUsdndgdgbr and visceral atherosclerosis (2 sources)Arteriosclerotic vascular diseaseOnset: hronic Peritonitis and intestinal abscess (17 sources)Abdominal edsnrxo28-24-8969GqlsaufxAvqytprg; pneumothorax; pulmonary collapse (4 sources)Pleurisy; Translations: [Pleurisy]60-63-2091PleailkuStflasdon heart disease (20 sources)Pulmonary arterial hypertension; Translations: [Secondary pulmonary arterial hypertension]Onset: 355291-96-9285VgpdcehUazofnbs codes; unclassified (20 sources)Disorder of pancreas; 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]Onset: 06-49-8447SiofaouGmlmennc codes; unclassified (20 sources)History of pancreatectomy; 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]55-56-0623VnxybbsHudvnzcf codes; unclassified (4 sources)Acquired total absence of pancreas; 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]01-99-1868QylzgclBttkzepx codes; unclassified (2 sources)Body mass index 20-24 - normal; Translations: [Body mass index (BMI) 20.0-20.9, adult]Onset: 111543-38-6712PkenulgrJmvjqazccgir (1 source)CONTACT W/AND (SUSP) EXPOS COVID-19; Translations: [CONTACT W/AND (SUSP) EXPOS COVID-19]Onset: 35-21-2227Jlgnugdmytdm (1 source)I25.10 - Atherosclerotic heart disease of [place] coronary artery without angina pectoris,I25.5 - Ischemic cardiomyopathy,R06.00 - Dyspnea, unspecified Unclassified (2 sources)Patient encounter fmuguf80-65-0156Vnjgtgrdfjed (1 source)High Blood SugarOnset: 10-26-2024 Past or Other Problems Problem ClassificationProblemDateDocumented DateEpisodic/ChronicAbdominal pain (3 sources)Upper abdominal pain, unspecified; Translations: [UPPER ABDOMINAL PAIN, UNSPECIFIED]Onset: 32-73-1836NevnoezjNfsmfcn dysrhythmias (20 sources)Bradycardia; Translations: [Bradycardia, unspecified]Onset: 048599-13-5252CzvcegntHpcimlkeaz and other anemia (1 source)Iron deficiency anemia, unspecified; Translations: [Iron deficiency anemia, unspecified]Onset: 29-69-6897UuejomvvTzqeoycp mellitus with complications (20 sources)Diabetes mellitus; Translations: [Uncontrolled diabetes mellitus] Onset: 05-02-2023 Resolved: 008145-60-6469McfulewZucgwgi on above:Problem List clean-up per request of Phys. EHR CmteDiabetes mellitus without complication (20 sources)Secondary diabetes mellitus; Translations: [Diabetes mellitus due to underlying condition without complications]Onset: 01-02-2022 Resolved: 82-85-7210LftplubXagcciy on above:type 1- insulin pump in place. Outside Source Comment: Comment on above: Problem List clean-up per request of Phys. EHR CmteFracture of neck of femur (hip) (20 sources)Closed intertrochanteric fracture; Translations: [Displaced intertrochanteric fracture of right femur, initial encounter for closed fracture]Onset: 05-25-2023 Resolved: 425615-64-8786FvbrvdhoQwwsnho on above:Problem List clean-up per request of Phys. EHR CmteImmunizations and screening for infectious disease (20 sources)Needs influenza immunization; Translations: [Encounter for immunization]Onset: 05-19-2023 Resolved: 744101-00-9344RfaimdbuKgsc disorders (20 sources)Mood disordersOnset: 344292-49-7514Rdyiehwrs of unspecified nature or uncertain behavior (20 sources)Benign neoplasm of pancreas; Translations: [Neoplasm of unspecified behavior of digestive system]Onset: 06-23-2018 Resolved: 427923-89-8710VtrbuuflAwgnjghvabr deficiencies (20 sources)Iron deficiency; Translations: [Iron deficiency]Onset: 06-16-2024 92-02-7458AakaxbhuOpdwj connective tissue disease (20 sources)Dupuytren's contracture; Translations: [Palmar fascial fibromatosis [Dupuytren]]Onset: 02-05-2023 Resolved: 688450-22-5306GlyoomzfXjfax connective tissue disease (20 sources)Pain of right thigh; Translations: [Pain in right thigh]Onset: 05-19-2023 Resolved: 555347-44-2121JmtqtelnZptyp fractures (20 sources)Closed fracture of fourth cervical vertebra; Translations: [Unspecified nondisplaced fracture of fourth cervical vertebra, subsequent encounter for fracture with routine healing]Onset: 09-09-2023 Resolved: 161508-45-0044CohernxfImovq lower respiratory disease (20 sources)Other nonspecific abnormal finding of lung field; Translations: [Other nonspecific abnormal findingof lung field]Onset: 02-05-2023 Resolved: 619437-19-5767SdbsxbenUmmsm lower respiratory disease (6 sources)Pleurodynia; Translations: [Painful respiration]Onset: 07-16-2024 99-39-1825CsbnoxzjAxtfg nervous system disorders (20 sources)Carpal tunnel syndrome of left wrist; Translations: [Carpal tunnel syndrome, left upper limb]Onset: 02-28-2024 Resolved: 153194-36-4546NraddbhVodgo nervous system disorders (20 sources)Hip pain; Translations: [Other acute postprocedural pain]Onset: 05-26-2023 Resolved: 507848-41-9988TehoxgscDfsjbhv on above:Problem List clean-up per request of Phys. EHR CmtePathological fracture (20 sources)Fracture of bone of hip region; Translations: [Age-related osteoporosis with current pathological fracture, unspecified femur, sequela] Onset: 05-19-2023 Resolved: 056490-71-4239RwsosnxwFulvyipgo (except that caused by tuberculosis or sexually transmitted disease) (2 sources)Bilateral pneumoniaOnset: 885756-34-4918TvcoaocqJnhwgxdq codes; unclassified (2 sources)Body mass index (BMI) 20.0-20.9, adult; Translations: [Body mass index (BMI) 20.0-20.9, adult]Onset: 15-19-8553MwxrnbwpEeypxqobwd (except in labor) (20 sources)Sepsis due to Escherichia coli; Translations: [Sepsis due to Escherichia coli [E. coli]]Onset: 05-02-2023 Resolved: 221206-62-1642YiflfdxwUalj and subcutaneous tissue infections (20 sources)Abscess of abdominal wall; Translations: [Cutaneous abscess of abdominal wall]Onset: 06-19-2024 Resolved: 555186-26-9583GtrylkpxHnmxffgab-tbmkmzl disorders (20 sources)Smoker; Translations: [Nicotine dependence, unspecified, uncomplicated]Onset: 2018 Resolved: 761406-75-3169CdxuwfeJvwdpvwifrca (2 sources)Onset: 05-25-2023 Resolved: Results Test NameValueInterpretationReference RangeFacilityC Urineon 59-24-5945Jdutaivl identified Cx Nom (U)Microbiology PROCEDURE: Urine Culture [...] Locations R1: This test was performed at: [facility], [address] [place] [address], [address]- , , UrnlhwKnvbeeProvidence HospitalComment on above:Performed By: #### [id number] #### [facility] [address] [place] [id number] Clinical Summaryon 09-62-7026SB Clinical SummaryED Clinical Summary [address] [address] ED Clinical Summary Person Information Name: MNAOLO ROCHE [facility] Age: 89 Years : 1935 Sex: Male Language: Malian PCP: SALVADOR NARANJO DO Marital Status: Visit [...] 05/17/2025 12:34:28 05/17/2025 12:34:28 05/17/2025 12:34:28 ADDRESS: [address] [place] [phone] PHYS DOC NOTES: MEDICAL INFORMATION: Prescriptions Given: New Medications [id number], [address], [place] [id number], [phone] phenazopyridine (Pyridium 200 mg Tab) 1 Tablets By Mouth 3 times a day for 2 Days. Refills: 0. Medications to Continue Taking That Have Changed [id number], [address], [place] [id number], [phone] START: cephalexin (Keflex 500 mg Cap) 1 [...] With: Address: Devin: Tristan GORDON, [address], [address] [address] Business (1) In 3 days 05/20/2025 DIAGNOSIS: Bacterial infection, unspecified; UTI (urinary tract infection), bacterialNormal [facility] CenterED Note-Physicianon 69-22-3137TB Note-PhysicianED Note-Physician Basic Information Time Seen: Evonne [...] day(s), # 10 cap(s), Refills(s) 0, Pharmacy: [id number], 177, cm, 05/17/25 10:58:00 EST, Height/Length Dosing, 61.7, kg, 05/17/25 10:58:00 EST,Weight Dosing phenazopyridine, 200 mg = 1 tab(s), Oral, TID, X 2 day(s), # 6 tab(s), Refills(s) 0, Pharmacy: [id number], 177, cm, 05/17/25 10:58:00 EST, [...] JULIO In 3 days 05/20/2025 EST [address] [facility] [address] [place], [place] [id number] [facility] (1) Additional Instructions: Patient Education Urinary Tract [...] made to ensure accuracy, however, inadvertently computerized intermodal customer service mistakes may be present. Appropriate healthcare PPE [...] capsule, Oral, q24hr atorvastat (more content not included)...[facility] Comment on above:Result Comment: Electronically Signed By: Chao Douglass PA-C\.br\Date and Time Signed: 05/17/2512:33 EST\.br\Electronically Co-Signed By: Mely Rollins M.D.\.br\Date and Time Co-Signed: 05/17/25 17:40 ESTED Patient Summaryon [id number] Patient SummaryED Patient Summary [place] [id number] Patient Discharge Instructions Person Information Name: MANOLO ROCHE Age: 89 Years Arrival Date: 05/17/2025 10:44:24 Discharge Diagnosis: Bacterial infection, unspecified; UTI (urinary tract infection), bacterial Primary Care Physician: SALVADOR NARANJO DO Provider Information Primary Provider: Mely Rollins M.D. Advanced Mineral Engineer:Chao Douglass PA-C The exam and treatment you received in the Emergency Department were for an urgent problem and are not intended as complete care. It is important that you follow up with a doctor, nurse practitioner,or physician???s malt specifications control assistant for ongoing care. If your [...] Follow-up Instructions: With: Address: When: Tristan MELCHOR [address] [place] [address], [address], [address] [address] Business (1) In 3 days 05/20/2025 In the event that this physician does not participate in your insurance network, please consult with your insurance company to find a nearby participating provider. Patient Education Materials: Urinary Tract Infection, Adult A MESSAGE TO ALL PATIENTS REGARDING OPIOIDS PRESCRIPTION OPIOIDS: WHAT YOU NEED TO KNOW Prescription opioids can be used to help relieve drwuaxhx-ym-rrhzmc pain and are often prescribed following a [...] overdose. ??? If you (more content not included)...Providence HospitalUA with Cult Rflxon 97-18-3147Jjacb (U)YellowNormalYellowKettering Health Main CampusComment on above:Order Comment: Added by oMnroe ExpertResult Comment: Microscopic readings are only performed on those samples that meet specific criteria set forth by [facility].Performed By: #### [id number] #### [facility] [address], [place] [address]Jpicsgg (U) [Mass/Vol]NegativeNormalNegWestern Reserve HospitalComment on above:Order Comment: Added by Monroe ExpertPerformed By: #### [id number] #### [facility] [address], [place] [address]Crfbhxw Ql (U)NegativeNormalNegWestern Reserve Hospital Comment on above:Order Comment: Added by Monroe ExpertPerformed By: #### [id number] #### [facility] [address], [place] [address]PC Blood1+ mg/dLAbnormalNegativeKettering Health Main Campus Comment on above:Order Comment: Added by Monroe ExpertPerformed By: #### [id number] #### [facility] [address], [place] [address]MG ClarityEx.TurbidAbnormalClearFRegency Hospital Cleveland West Comment on above:Order Comment: Added by Monroe ExpertPerformed By: #### [id number] #### [facility] [address], [place] [address]TA Leuk Hwo859 Jatinder/uLAbnormalNegativeKettering Health Main CampusComment on above:Order Comment: Added by Monroe ExpertPerformed By: #### [id number] #### [facility] [address], [place] [address]FL Nitrite1+ mg/dLAbnormalNegWestern Reserve Hospital Comment on above:Order Comment: Added by Monroe ExpertPerformed By: #### [id number] #### [facility] [address], [place] [address]QT pH8.0Invalid Interpretation Code5.0-9.0[facility] Main CampusComment on above:Order Comment: Added by Monroe ExpertPerformed By: #### [id number] #### [facility] [address], [place] [address]VL Protein2+ mg/dLAbnormalNegWestern Reserve Hospital Comment on above:Order Comment: Added by Monroe ExpertPerformed By: #### [id number] #### [facility] [address], [place] [address]NF Spec Grav1.014Invalid Interpretation Code1.005-1.030[facility] Main CampusComment on above:Order Comment: Added by Monroe Expert Performed By: #### [id number] #### [facility] [address], [place] [address]MX UrobilinogenNegativeNormalNegWestern Reserve HospitalComment on above:Order Comment: Added by Discern ExpertPerformed By: #### [id number] #### [facility] [address], [place] [address]LQ WBC Ibgbr96-87FvjwistsZxpetbMercy HospitalComment on above:Order Comment: Added by Discern ExpertPerformed By: #### [id number] #### [facility] [address], [place] [address]Ibbdhymawkqh (U) [Mass/Vol]NegativeNormalNegWestern Reserve HospitalComment on above:Order Comment: Added by Monroe ExpertPerformed By: #### [id number] #### [facility] [address], [place] [address]PC Bacteria4+ /HPFAbnormCleveland Clinic Foundation Comment on above:Order Comment: Added by Monroe ExpertPerformed By: #### [id number] #### [facility] [address], [place] [address]HT CA Ox CrystalPresentAbnOhioHealth Mansfield Hospital Comment on above:Order Comment: Added by Monroe ExpertPerformed By: #### [id number] #### [facility] [address], [place] [address]JI MucousTraceNormalNegWestern Reserve HospitalComment on above:Order Comment: Added by Monroe ExpertPerformed By: #### [id number] #### [facility] [address], [place] [address]QW GIE2-27Kcgwhxvo8-2Xoauqs [facility] Finan CenterComment on above:Order Comment: Added by Monroe ExpertPerformed By: #### [id number] #### [facility] [address], [place] [address]UE WBC>41Bfbseyrj7-5Ehstrr [facility] Finan CenterComment on above:Order Comment: Added by Discern ExpertPerformed By: #### [id number] #### [facility] [address], [place] [address]SB with Cult Rflx SPon 73-17-2212HT Spec DescFoleyNormalFishmichelle [facility] Finan CenterComment on above:Performed By: #### [id number] #### [facility] [address], [place] [address]EJNwn 14-57-9244Osb [address] [address] Cardiac Rehab Report Signed Patient: MANOLO ROCHE MR#: [id number] : 1935 Acct:[id number] Age/Sex: 89 / M ADM Date: 05/10/25 Loc: CR Attending Dr: Anat Perez M.D. Ordering Physician: Marito Jimenez M.D. Date of Service: 05/10/25 Procedure(s): ITP Accession Number(s): [id number] cc: [facility] Test Date: 2025-05-10 Pat Name: MANOLO ROCHE Department: Room: - Gender: Male [place]: : 1935 Requested By: MARITO JIMENEZ Order Number: [id number] Reading MD: CHUCK ROACH M.D. Interpretive Statements Patient may start cardiac rehab as outlined in the treatment plan. Electronically Signed On 05-10-2025 15:43:30 EDT by CHUCK ROACH M.D. Dictated By: CHUCK ROACH Signed By: 05/10/25 1544 05/10/25 1544 DD/ 1433 TD/TT: Fabric Designer:TBHRadiology, Radiologist, - 05/10/[address] [address] Cardiac Rehab Report Signed Patient: MANOLO ROCHE MR#: [id number] : 1935 Acct:[id number] Age/Sex: 89 / M ADM Date: 05/10/25 Loc: CR Attending Dr: Anat Perez M.D. Ordering Physician: Marito Jimenez M.D. Date of Service: 05/10/25 Procedure(s): ITP Accession Number(s): [id number] cc: [facility] Test Date: 2025-05-10 Pat Name: MANOLO ROCHE Department: Room: - Gender: Male [place]: : 1935 Requested By: MARITO JIMENEZ Order Number: [id number] Vu MD: CHUCK ROACH M.D. Interpretive Statements Patient may start cardiac rehab as outlined in the treatment plan. Electronically Signed On 05-10-2025 15:43:30 EDT by CHUCK ROACH M.D. Dictated By: CHUCK ROACH Signed By: 05/10/25 1544 05/10/25 1544 DD/ 1433 TD/TT: Fabric Designer: NETO HealthcareRadiology Study observation (narrative)[facility] HealthcareITPOrdered By: Radiologist Radiology on 79-79-0356AQUJ Snapette Work Phone: ITPon [phone] [address] Cardiac Rehab Report Signed Patient: MANOLO ROCHE MR#: [id number] : 1935 Acct:[id number] Age/Sex: 89 / M ADM Date: 05/07/25 Loc: CR Attending Dr: Anat Perez M.D. Ordering Physician: CHUCK ROACH Date of Service: 05/08/25 Procedure(s): ITP Accession Number(s): [id number] cc: [facility] Test Date: 2025-05-08 Pat Name: MANOLO ROCHE Department: Room: - Gender: Male [place]: : 1935 Requested By: CHUCK ROACH M.D. Order Number: [id number] Vu MD: CHUCK ROACH M.D. Interpretive Statements Patient may start cardiac rehab as outlined in the treatment plan. Electronically Signed On 05-08-2025 19:06:51 EDT by CHUCK ROACH M.D. Dictated By: CHUCK ROACH Signed By: 05/08/25190605/08/251906 DD/ 08 TD/TT: Fabric Designer:Iris Hartley MD - 05/08/2025 [place] [address] Cardiac Rehab Report Signed Patient: MANOLO ROCHE MR#: [id number] : 1935 Acct:[id number] Age/Sex: 89 / M ADM Date: 05/07/25 Loc: CR Attending Dr: Anat Perez M.D. Ordering Physician: CHUCK ROACH Date of Service: 05/08/25 Procedure(s): ITP Accession Number(s): [id number] cc: [facility] Test Date: 2025-05-08 Pat Name: MANOLO ROCHE Department: Room: - Gender: Male [place]: : 1935 Requested By: CHUCK ROACH M.D. Order Number: [id number] Reading MD: CHUCK ROACH M.D. Interpretive Statements Patient may start cardiac rehab as outlined in the treatment plan. Electronically Signed On 05-08-2025 19:06:51 EDT by CHUCK ROACH M.D. Dictated By: CHUCK ROACH Signed By: 05/08/25190605/08/251906 DD/ 08 TD/TT: Fabric Designer: NETO HealthcareRadiology Study observation (narrative)[facility] HealthcareITPOrdered By: Radiologist Radiology on 18-16-4896JXTQ Healthcare Work Phone: cNOVon [phone] Visit (ENDOLN) MANOLO ROCHE ([id number]) 1935 M Date Time Provider Department 05/03/25 [...] DM Type 1. Here with . At [facility] 03/2025, patient was transitioned from Omnipod to [...] of total pancreatectomy in September [address] [facility] in [place]. Per patient, this was done due to [...] mouth once daily. Di (more content not included)...NormalCleveland Clinic South Pointe Hospitalon 05-85-3902WXRHVgjclpypa (ENDOLN) MANOLO ROCHE ([id number]) 1935 M Date Time Provider Department 05/03/25 AYANA ZAVALA ENDOLN During your visit today, we recorded the following information about you: Miguel A Goodwin MA 05/03/2025 8:43 AM Signed Attempted to reach patients as a reminder that patient has a 10 am appointment with Marc our offender employment specialist and an appointment at 11 a.m. with Ayana. Also left detailed message that we wanted to know if he has been checking his blood glucose and if so to please bring those to todays appointment. Allergies As of Date: 05/03/2025 (No Known Allergies) Date Reviewed: 04/09/2025 Reviewed by: Ayana Zavala APRN.SHIRT HEMMER - Fully Assessed Reason for Visit: Patient Question [0708] Cmt: Glucose readings Prescriptions as of 05/03/2025 - insulin glargine (LANTUS SOLOSTAR U-100 INSULIN) 100 unit/mL (3 mL) Inject 12 Units subcutaneously daily at bedtime. - insulin aspart U-100 (NOVOLOG FLEXPEN U-100 INSULIN) 100 unit/mL (3 mL) pen Inject 4 units with meals plus sliding scale (Max daily dose of 30 units daily) - Insulin Arley, Disposable, (BD ULTRA-FINE MARICHUY PEN NEEDLE) 32 [...] Inject 1 mg subcutaneously as needed. - rtqvjq-rucsvfpj-tcgplsz (CREON) 24,000-76,000 -120,000 unit cpDR Take 2 [...] Encounter Status:Closed by MIGUEL A GOODWIN on 05/03/25NoBlanchard Valley Health SystemCNPNTelephone (ENDOLN) MANOLO ROCHE ([id number]) 1935 M Date Time Provider Department 05/03/25 AYANA ZAVALA During your visit today, we recorded the following information about you: Miguel A Goodwin MA 05/03/2025 3:12 PM Signed Received a fax from [facility] [place] [facility] medication list as well as glucose readings. Ayana reviewed then requested to send for scan. Allergies As of Date: 05/03/2025 (No Known Allergies) Date Reviewed: 05/03/2025 Reviewed by: Ayana Zavala APRN.SHIRT HEMMER - Fully Assessed Reason for Visit: Patient Update [1234] Cmt: [facility]- Medication update and glucose readings Prescriptions as of 05/03/2025 - insulin glargine (LANTUS SOLOSTAR U-100 INSULIN) 100 unit/mL (3 mL) Inject 15 Units subcutaneously daily at bedtime. - insulin aspart U-100 (NOVOLOG FLEXPEN U-100 INSULIN) 100 unit/mL (3 mL) pen Inject 4 units with meals plus sliding scale (Max daily dose of 30 units daily) - Insulin Arley, Disposable, (BD ULTRA-FINE MARICHUY PEN NEEDLE) 32 gauge x 5/32 Use four times daily with insulin pens - Blood-Glucose Sensor (Realius G7 SENSOR) delfin Change every 10 days. [...] Inject 1 mg subcutaneously as needed. - qqhvui-yvmxqpyg-fnncujt (CREON) 24,000-76,000 -120,000 unit cpDR Take 2 [...] Encounter Status:Closed by MIGUEL A GOODWIN on 05/03/25[facility] HospitalAmbulatory Visit Summaryon 22-85-8883Rhujsdeqmw Visit SummaryAmbulatory Visit Summary MANOLO ROCHE :1935 [...] When: Comments: Pending Cysto/bladder function testing Where: [address] [place] [address]- Medications What How Much When Instructions [...] signed up for this yet, please contact [employer] at [phone] to get signed up today. Language Information Language assistance services are available as needed. [facility] HospitalUrology Office/Clinic Noteon 07-18-4216Mvbfrfc Office/Clinic NoteUrology Office/Clinic Note Chief Complaint new patient HPI Staff 89 year old male [facility] F/U and Urology consult 04/10/25 for [...] is a 89 yo M here for [facility] f/u for urinary retention. 1. Urinary retention, (R33.9: Retention of urine, unspecified)Incomplete bladder emptying Seen at [facility] 04/10/25 for urinary retention of 700 [...] He was seen in consultation at the [facility] for significant urinary retention of [...] Information JULIO OGLESBY, Tristan Interiano, URL [address] [facility] [facility] [address] [place] [address]- Additional Instructions: Pending Cysto/bladder function testing Patient Education I, Collette Phillips, personally scribed for Dr. Melchor on 04/25/2025 15:13:38. . Documentation recorded by the scribe, Collette Phillips, accurately reflects the services(s) I performed and decisions made by me. Authenticated by Dr. Melchor on 04/25/2025 15:15:06. Portions of this record may have been created with voice recognition artificial intelligence software, specifically [employer], [employer] and or [employer]. Substitutions may have occurred due to the [...] pacemaker, Cataract extraction, H/O (more content not included)...Providence HospitalComment on above:Result Comment: Electronically Signed By: Quyen Melchor\.br\Date and Time Signed: 04/25/25 15:24 EDTCNPHaley 69-30-4035MSQXUaqddopwy (ENDOLN) MANOLO ROCHE ([id number]) 1935 M Date Time Provider Department 04/23/25 [...] enzyme or marker Patient is [facility] [phone] Spouse states they are not controlling his BS well. Advised Provider doesn't have charge of care as he is admitted to [facility] and she must reach out to [...] Signed Attempted to reach staff at [facility]. Was transferred but then no answer. Will try again later. Erick Peguero LPN 04/24/2025 3:59 PM Signed Spoke to Yvan FRAZIER, He will fax over requested blood sugar readings and current med list to our office. 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 - insulin aspart U-100 (NOVOLOG FLEXPEN U-100 INSULIN) 100 unit/mL (3 mL) pen Inject 4 units with meals plus sliding scale (Max daily dose of 30 units daily) - Insulin Arley, Disposable, (BD ULTRA-FINE MARICHUY PEN NEEDLE) 32 gauge x 5/32 Use four times daily with insulin pens - Blood-Glucose Sensor (Realius G7 SENSOR) delfin Change every 10 days. [...] Inject 1 mg subcutaneously as needed. - ngdman-zhddtgcu-bdedlyk (CREON) 24,000-76,000 -120,000 unit cpDR Take 2 [...] *06/23/2018 Encounter Status:Closed by AYANA ZAVALA on 04/24/25NormalCNorwalk Memorial Hospital peptide SerPl-mCncon 04-09-2025 peptide [Mass/Vol]<0.1Low1.1-4.4 [facility] on above:Order Comment: Specimen Type: BLOOD SPECIMENOrdering Facility: [facility] Address:[address] [place], [place] [id number] By: #### 1986-9 ####[facility] LABCLIA [id number] [place]QMCYX[place]GIZMZWDWC, [place] [address] [place] OF CHILLICOTHE HOSPITALCC GLUCOSE P FAST SERPL-[facility]ST PENN HOSPITALon 10-38-4067Igkmpzr [Mass/Vol]751 mg/dLHigh 74 - 99 mg/dLUniversity Health Lakewood Medical CenterComment on above:[place] Diabetes Association guidelines state that a diabetes mellitus diagnosis is preliminarily made when the fasting plasma glucose meets or exceeds 126 mg/dL. In the absence of unequivocal hyperglycemia, results should be confirmed with repeat testing. Patients are at increased risk for diabetes mellitus (prediabetes) when the fasting glucose is 100 to 125 mg/dL.Interpretation and review of laboratory resultsAbnormalUniversity Health Lakewood Medical CenterSpecimen Type: BLOOD SPECIMEN Ordering Facility: [facility] Address: [address] [id number] Original Ordering Provider: AYANA LAKHANI [facility] 70-92-7757CBLUWskqwb Visit (ENDOLN) KALEYMANOLO ([id number]) 1935 M Date Time Provider Department 04/09/25 2:00 PM AYANA ZAVALA ENDOLN During your visit today, we recorded the following information about you: Pulse Blood pressure Weight 60/minute 162/86 62.9 kg Ayana Zavala APRN.SHIRT HEMMER 04/10/2025 8:17 AM Addendum Endocrinology Follow Up History of Present Illness Manolo Roche is a 89 year old male presents today for follow up of DM Type 1. Here with . At [facility] 10/2024, basal rate was reduced overnight. He [...] or vomiting. 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 Labwork from this AM is pending. recalls he is not bolusing consistently and will ignore his Omnipod alarms at times. Patient recalls being consistent with his Novolog and Lantus injections when he was on these. 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 in [place]. Per patient, this was done due to [...] OTHER Medication Dosage Pharm Subclass Blood-Glucose Sensor (Realius G7 SENSOR) delfin Change every 10 days. [...] Hypoglycemia (Hyperg (more content not included)...NormalMercy Health Allen HospitalGAD65 Ab Ser-aCncon 04-09-2025 Glutamate decarboxylase 65 Ab Qn (S)<5.0Normal<=5.0[facility] Comment on above:Order Comment: Specimen Type: BLOOD SPECIMENOrdering Facility: [facility] Address:[address], [place] [address]Eyxoct Comment: Anti-glutamic acid decarboxylase antibody (GAD65) test [...] diseases. Clinical correlation is required.Performed By: #### 61839-7 ####[facility] [id number] [place] [address] [place] OF AMERICAGlucose p fast SerPl-ncon 25-04-0830Nfmvdnz post fast [Mass/Vol]751 mg/dXSupp88-63BfvbotqnyMercy Health Allen HospitalComment on above:Order Comment: Specimen Type: BLOOD SPECIMENOrdering Facility: [facility] Address:[address] [place], [place] [address]Result Comment: [place] Diabetes Association guidelines state that a diabetes mellitus diagnosis is preliminarily made when the fasting plasma glucose meets or exceeds 126 mg/dL. In the absence of unequivocal hyperglycemia, results should be confirmed with repeat testing. Patients are at increasedrisk for diabetes mellitus (prediabetes) when the fasting glucose is 100 to 125 mg/dL.Performed By: #### 1558-6 ####[facility] [id number] [place] [address] [place] OF AMERICAGlutamate decarboxylase 65 Ab Qn (S)on 54-50-3813VUOUCBUR ACID DECARBOXYLAS AB QUALITATIVENegativeNormalNegativeMercy Health Allen Hospital Comment on above:Order Comment: Specimen Type: BLOOD SPECIMENOrdering Facility: [facility] Address:[address] [place] [address] Performed By: #### 07418-2 ####[facility] [id number] [address] STATES OF [place] HbA1c (Bld)on 19-52-7192Cvuacaq glucose Estimated from glycated hemoglobin (Bld) [Mass/Vol]321 mg/dLNormalCCleveland Clinic Marymount Hospital on above:Order Comment: Specimen Type: BLOOD SPECIMENOrdering Facility: [facility] Address:[address] [place], [place] [address]Result Comment: eAG: (Estimated average glucose) is a calculated value from HgbA1c and is representa tive of the average blood glucose level in the last 2-3 month period.Performed By: #### 38793-0 ####[facility] LABIA [id number] [place] [address] [place] OF ZDGYUXVPdV3n (Bld) [Mass fraction]12.8 %High4.3-5.6ClevelAtrium Health Carolinas Rehabilitation CharlotteComment on above:Order Comment: Specimen Type: BLOOD SPECIMENOrdering Facility: [facility] Address:[address] [place], [place] [address]Result Comment: [place] Diabetes Association guidelines indicate that patients with HgbA1c in the range 5.7-6.4% are at increased risk for development of diabetes, and intervention by lifestyle modification may be beneficial. HgbA1c greater or equal to 6.5% is considered diagnostic of diabetes.Performed By: #### 00680-7 ####[facility] LABIA [id number] [place] [address] [place] CHILLICOTHE HOSPITALALL PRO BNPon 21-59-2247ZV PRO B TYPE NATRIURETIC [id number] pg/mLCritically highNINF - 1800.0 pg/mLNOMS HealthcareComment on above: RESULTS CALLED TO JOEY GARCES CMP (CMP) (FOR REMOTE [facility] USE)on 24-99-8149Yvvcwlm [Mass/Vol]3.2 g/dLLow3.4 - 5.0 g/dLNOMS HealthcareALBUMIN GLOBULIN [...] [Vol rate/Area]30Low>=60 mL/min/1.73m 2NOMS HealthcareGlobulin (S) [Mass/Vol]3.7 g/dLNOIA HealthcareGlucose [Mass/Vol]581 mg/dLCritically high74 - 106 mg/dLST. MARK'S HOSPITAL HealthcareComment on above:RESULTS CALLED TO ZENAIDA SANDOVAL, RN Potassium [Moles/Vol]4.7 mmol/L3.5 - 5.1 mmol/LNOMS HealthcareProtein [Mass/Vol] 6.9 g/dL6.4 - 8.2 g/dLNOIA HealthcareSodium [Moles/Vol]129 mmol/PAsg311 - 145 mmol/LNOMS HealthcareTBH EGFR-NON AF IZOGOFAT47Xcw>=60 mL/min/1.73m 2NOMS HealthcareUrea nitrogen [Mass/Vol]73 mg/dLHigh7.0 - 18.0 mg/dLNOIA Healthcare Urea nitrogen/Creatinine [Mass ratio]29.4 mg/mgNOIA HealthcareNo Panel Informationon 81-81-8767Vnrgvlsbvmzfjr and review of laboratory resultsAbnoJefferson Lansdale HospitalCLINISHancock County HospitalGLUTAMIC AC DECARBOXYLASE ABOrdered By: Erick Peguero on 02-59-5783Ucdoncqlp decarboxylase 65 Ab Qn (S)-5.0AbnoProtestant Deaconess HospitalR HEMOGLOBIN A1Con 65-25-6559Yjkoqdj [Mass/Vol]269 mg/dLNOGolden Valley Memorial HospitalOpbcqmooijVsY6w (Bld) [Mass fraction]11 %High4.5 - 6.2 %University Health Lakewood Medical CenterComment on above:ADA RECOMMENDED LIMIT 4.0 - 6.0 ADA THERAPEUTIC TARGET < 7.0 ACTION SUGGESTED > 7.0 Interpretation and review of laboratory resultsAbnormMain Line Health/Main Line HospitalsCLINISYNMUSC Health Black River Medical CenterNo Panel Informationon 84-98-8794Fyhxymggdbvcxm and review of laboratory resultsAbnormRipon Medical CenterTB GLUCOSE BLOODon 28-19-1434Frichsq [Mass/Vol]141 mg/aHJqyi82 - 106 mg/dLCrownpoint Health Care Facility Issa 44-94-6429IOFMUjqaofxom (ENDOLN) MANOLO ROCHE ([id number]) 1935 M Date Time Provider Department 02/05/25 [...] Buffy Roche MA 02/15/2025 10:09 AM Signed [employer]-Medicare Part B Insulin RX form completed and faxed Confirmation received Allergies As of Date: 02/05/2025 (No Known Allergies) Date Reviewed: 10/26/2024 Reviewed by: Ayana Zavala APRN.CNP - Fully Assessed Reason for Visit: [employer] form [Other] Primary Visit Diagnosis: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 - kzvcou-uahdywkv-pazrlji (CREON) 24,000-76,000 -120,000 unit cpDR Take 2 [...] *06/23/2018 Encounter Status:Closed by AYANA ZAVALA on 02/05/25NoOhioHealth O'Bleness Hospital ANGIOGRAM CHESTon 22-87-9877VK ANGIOGRAM CHESTCLINICAL HISTORY: Chest pain. Technique: Spiral [...] ELECTRONICALLY SIGNED BY: Howard Mae MDNormalNot AvailableCreatinineon 62-38-3713Yeuateiwjp [Mass/Vol]1.21 mg/dL0.76 - 1.27 mg/dLUniversity Health Lakewood Medical Center Creatinine [Mass/Vol]on 41-07-5538SCI/1.73 sq M.predicted among non-blacks MDRD (S/P/Bld) [Vol rate/Area]58 mL/min/{1.73_m2}Low59 - PINF mL/min/1.73University Health Lakewood Medical CenterInterpretation and review of laboratory resultsTidalHealth Nanticoke Performed at: - LabHannibal [facility] [address], [place], [place] [id number] Fine Craft Artist: Hilario Chew MD, Phone: [phone] Health + HospitalsXR CHEST 2 VIEWSon 61-16-7815XO CHEST 2 VIEWSTITLE OF EXAM: XR CHEST [...] the interpreting radiologist.NormalNot AvailableXR Chest 2 Viewson 81-19-7518ZBCPD OF EXAM: XR CHEST 2 VIEWS REASON [...] signed in approved by the interpreting radiologist. [facility] HealthcareRadiology Study observation (narrative)University [facility] Lakewood Medical CenterXR Chest 2 ViewsOrdered By: Yuval Gill on 44-19-5359OTSHUniversity Health Lakewood Medical Center Work Phone: CNPNon 68-28-6585GFYBZguqpcljj (ENDOLN) MANOLO ROCHE ([id number]) 1935 M Date Time Provider Department 12/19/24 AYANA ZAVALA ENDOLN During your visit today, we recorded the following information about you: Sharonda Felipe 12/19/2024 12:07 PM Signed Pt needs refill on sensors. Do not see on current med list. Pt uses [facility] pharmacy in [facility]. Insurance is not going to pay for this until 01/03. Spouse is requesting to speak to a nurse about getting an alternative until then. Please review and advise. Patient has been identified by name and birthdate. Duration of symptoms: N/A Person calling: self Call patient at: on cell [phone] (cell) Was an appointment scheduled: No Closing statement: Results or non-symptom based questions: Thank you for calling [facility], your call will be returned within the next business day. Ayana Hess APRN.KALANI 12/25/2024 8:04 AM Addendum Rx sent however patient obtains typically from [facility], are they still having issues obtaining from there? Erick Peguero LPN 12/27/2024 11:08 AM Signed Spoke to pharmacy, the sensors are ready for berry picker. Relayed message to patient's . She states that they do usually receive sensors from [facility] but they are having issues receiving them. The patient uses more that prescribed and paid for by insurance because they fall out. She will berry picker those at pharmacy , if there [...] PUMP (MAX DAILY 75 UNITS) - Insulin Arley, Disposable, (BD ULTRA-FINE MARICHUY PEN NEEDLE) 32 [...] Inject 1 mg subcutaneously as needed. - nqbvef-vrevhyqo-powgvqr (CREON) 24,000-76,000 -120,000 unit cpDR Take 2 [...] ordered this encounter Disp Refills Start End Realius G7 SENSOR DEVICE 3 ea* 0 12/25/2024 Sig: Change every 10 days. Encounter Status:Closed by AYANA ZAVALA on 12/25/24[facility] 29-34-1153KAOVJoawyu Visit (ENDOLN) MANOLO ROCHE ([id number]) 1935 M Date Time Provider Department 10/26/24 12:15 PM AYANA ZAVALA During your visit today, we recorded the following information about you: Pulse Blood pressure Weight Height 60/minute 163/80 61 kg 1.778 m Ayana Zavala APRN.SHIRT HEMMER 10/26/2024 1:11 PM Signed Endocrinology Follow Up History of Present Illness Manolo Roche is a 89 year old male presents today for follow up of DM Type 1. Here with . At [facility] 09/25/2024, basal rate settings were changed, sensor [...] of total pancreatectomy in [address] [facility] in [place]. Per patient, this was done due to [...] as n (more content not included)...NormalMercy Health Allen HospitalHEMOGLOBIN A1C (POC)on 89-63-3639QuM3n (Bld) [Mass fraction]12 % Abnormal4.3 - 5.6 %OhiohealthComment on above:Location:[facility], [address] [place] [address], [facility] Point of care (POC) Hemoglobin A1c (HGBA1C) [...] specific diabetes management situations: The POC device crab steamer provides a normal range of 4.2% to 6.5% for the HGBA1C POC test. However, the [place] Diabetes Association guidelines indicate that patients with [...] cell lifespan. Interpretation and review of laboratory resultsAbnormalClevelFormerly Heritage Hospital, [facility] ClinicALL BASIC METABOLIC PANELon 51-66-5079Tjyss gap [Moles/Vol]12.4 mmol/LNOMS HealthcareCalcium [Mass/Vol]8.2 mg/dLLow8.5 - 10.1 mg/dLNOMS HealthcareChloride [Moles/Vol]101 mmol/L98 - 107 mmol/LNOMS HealthcareCO2 [Moles/Vol]27.9 mmol/L 21.0 - 32.0 mmol/LNOMS HealthcareCreatinine [Mass/Vol]1.41 mg/dLHigh0.70 - 1.30 mg/dLNOMS HealthcareGFR/1.73 sq M.predicted CKD-EPI (S/P/Bld) [Vol rate/Area]58 Low>=60 mL/min/1.73m 2NOMS HealthcareGlucose [Mass/Vol]355 mg/aTCjkj76 - 106 mg/dLNOMS HealthcarePotassium [Moles/Vol]4.3 mmol/L3.5 - 5.1 mmol/LNOMS HealthcareSodium [Moles/Vol]137 mmol/L136 - 145 mmol/LNOMS HealthcareTBH EGFR- NON AF EMSTPZQI52Qpv>=60 mL/min/1.73m 2NOMS HealthcareUrea nitrogen [Mass/Vol]31 mg/dLHigh7.0 - 18.0 mg/dLNOMS HealthcareUrea nitrogen/Creatinine [Mass ratio]22 mg/mgNOMS HealthcareALL PRO BNPon 29-13-0253GI PRO B TYPE NATRIURETIC PCDI5057 pg/mLCritically highNINF - 1800.0 pg/mLNOMS HealthcareComment on above:RESULTS CALLED TO Zenaida Sandoval RNNo Panel Informationon 51-69-0621Opgteqqykzwcxx and review of laboratory resultsAbnormalNOMS HealthcareCLINISYNCNOU MEDICAL CENTER – [facility] HealthcareCNPN on 51-36-0515ZCXBDbmxmksnn (ELIZABETHBHT) MANOLO ROCHE ([id number]) 1935 M Date Time Provider Department 10/13/24 [...] Date Reviewed: 09/25/2024 Reviewed by: Ayana Zavala APRN.SHIRT HEMMER - Fully Assessed Reason for Visit: Omnipod/Dexcom [...] crtg Change every 72 hours. - Insulin Arley, Disposable, (BD ULTRA-FINE MARICHUY PEN NEEDLE) 32 [...] Inject 1 mg subcutaneously as needed. 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 - Insulin Arley, Disposable, (BD ULTRA-FINE MARICHUY PEN NEEDLE) 32 [...] Inject 1 mg subcutaneously as needed. - opqngx-oinmfbwi-miwljdv (CREON) 24,000-76,000 -120,000 unit cpDR Take 2 [...] *06/23/2018 Encounter Status:Closed by AYANA ZAVALA on 10/11/24[facility] HospitalCNPNTelephone (ELIZABETHBHT) MANOLO ROCHE ([id number]) 1935 M Date Time Provider Department 10/11/24 GAYE MATA During your visit today, we recorded the following information about you: Gaye Mata, RN 10/11/2024 4:23 PM Signed Patient's sent message patient had received Dexcom G7 CGM sensors from [employer] last night. Patient applied Omnipod 6 insulin [...] Date Reviewed: 09/25/2024 Reviewed by: Ayana Zavala APRN.SHIRT HEMMER - Fully Assessed Reason for Visit: Omnipod [...] crtg Change every 72 hours. - Insulin Arley, Disposable, (BD ULTRA-FINE MARICHUY PEN NEEDLE) 32 [...] Inject 1 mg subcutaneously as needed. - jxibvd-nqzzzcte-clcrvns (CREON) 24,000-76,000 -120,000 unit cpDR Take 2 [...] *06/23/2018 Encounter Status:Closed by GAYE MATA on 10/11/24[facility] HospitalCNPNon 77-67-1951BVMHDopivaxfj (DEMBHT) KALEYGIOVANIMANOLO ([id number]) 1935 M Date Time Provider Department 10/10/24 GAYE MATA During your visit today, we recorded the following information about you: Gaye Mata, RN 10/10/2024 9:36 AM Signed Called and spoke with patient's . Patient called educator last week stating he has been having issues getting his Dexcom G7 CGM sensors from his DME company, [employer]. Patient states he called them a few [...] LPN 10/10/2024 3:40 PM Signed Spoke to [employer] Rep, he reported that the Dexcom supplies should be delivered today vis [employer]. Tracking nbr [id number]. According to his notes it was out for delivery at 5:48 am 10/10/2024. I attempted to reach patient at both nbrs listed, no answer. VM left with update. I will send a [employer] message as well. Allergies As of Date: 10/10/2024 (No Known Allergies) Date Reviewed: 09/25/2024 Reviewed by: Ayana Zavala APRN.SHIRT HEMMER - Fully Assessed Reason for Visit: Dexcom [...] crtg Change every 72 hours. - Insulin Arley, Disposable, (BD ULTRA-FINE MARICHUY PEN NEEDLE) 32 [...] Inject 1 mg subcutaneously as needed. - weqist-xbqtxshl-dafqpgn (CREON) 24,000-76,000 -120,000 unit cpDR Take 2 [...] *06/23/2018 Encounter Status:Closed by GAYE MATA on 10/10/24[facility] 46-51-9983DQQPRndrngqzf (ELIZABETHLeeann) MANOLO ROCHE ([id number]) 1935 M Date Time Provider Department 10/04/24 GAYE MATA During your visit today, we recorded the following information about you: Allergies As of Date: 10/04/2024 (No Known Allergies) Date Reviewed: 09/25/2024 Reviewed by: Ayana Zavala APRN.SHIRT HEMMER - Fully Assessed Reason for Visit: Omnipod [...] 5,) crtg Change every 72 hours. - vqxbgr-gaxghfby-oirfrkw (CREON) 24,000-76,000 -120,000 unit cpDR Take 2 [...] *06/23/2018 Encounter Status:Closed by GAYE MATA on 10/04/24NoBlanchard Valley Health SystemGuera (LIANNA) MANOLO ROCHE ([id number]) 1935 M Date Time Provider Department 10/04/24 GAYE MATA During your visit today, we recorded the following information about you: Gaye Mata, KARIN 10/04/2024 4:41 PM Signed Patent called stating that he is out of [employer] G7 CGM sensors and has been having difficulty getting the shipment from [employer], his DME supplier. Patient states he made 3 calls to them this week, one including a supervisor pigment making at [facility], who promised that the shipment was sent and would be received in a day or two. Advised patient to contact his provider's office to see if they are able to help as they submitted all the original paperwork to [facility] back in August and I am not sure if they are waiting on something from the office. Patient was also told to see if the provider's office had Dexcom G7 sensor samples to provide until his shipment arrives so he does not have to drive out to [facility]. Patient verbalized understanding. Allergies As of Date: 10/04/2024 (No Known Allergies) Date Reviewed: 09/25/2024 Reviewed by: Ayana Zavala APRN.SHIRT HEMMER - Fully Assessed Reason for Visit: Dexcom [...] Inject 1 mg subcutaneously as needed. - tdwmek-czrzeuuy-pzfmrsg (CREON) 24,000-76,000 -120,000 unit cpDR Take 2 [...] *06/23/2018 Encounter Status:Closed by GAYE MATA on 10/04/24[facility] [id number] (DEMT) MANOLO ROCHE ([id number]) 1935 M Date Time Provider Department 09/27/24 GAYE MATA [facility] During your visit today, we recorded the following information about you: Allergies As of Date: 09/27/2024 (No Known Allergies) Date Reviewed: 09/25/2024 Reviewed by: Ayana Zavala APRN.SHIRT HEMMER - Fully Assessed Reason for Visit: Omnipod [...] 5,) crtg Change every 72 hours. - jpccuh-rsgfbwdz-lnhuepa (CREON) 24,000-76,000 -120,000 unit cpDR Take 2 [...] Status:Closed by GAYE MATA on 09/27/24NoC[facility] HospitalLinwoodphone ([facility]ITALT) MANOLO ROCHE ([id number]) 1935 M Date Time Provider Department 09/27/24 GAYE MATA During your visit today, we recorded the following information about you: Gaye Mata, KARIN 09/27/2024 1:23 PM Signed In error Allergies As of Date: 09/27/2024 (No Known Allergies) Date Reviewed: 09/25/2024 Reviewed by: Ayana Zavala APRN.SHIRT HEMMER - Fully Assessed Prescriptions as of 09/27/2024 [...] 5,) crtg Change every 72 hours. - tpoyuu-inyhyheg-crpjcsz (CREON) 24,000-76,000 -120,000 unit cpDR Take 2 [...] *06/23/2018 Encounter Status:Closed by GAYE MATA on 09/27/24No[facility] [id number] (ENDOLN) MANOLO ROCHE ([id number]) 1935 M Date Time Provider Department 09/26/24 AYANA ZAVALA ENDOLN During your visit today, we recorded the following information about you: Ayana Zavala APRN.SHIRT HEMMER 09/26/2024 7:40 AM Signed Received page regarding [...] below Stated understanding will take pt to [facility] Advised to f/u with endo upon [...] re : HIPAA in in basics in [facility] does attend ov ( see 09-25-2024) Will document this in [facility]/ basics Erick Peguero LPN 09/26/2024 8:18 AM Signed Left message on machine to call the office. Ayana Zavala APRN.CNP 09/26/2024 11:55 AM Addendum Provided report to [place] [facility]. Informed of BG of 614 mg/dL [...] It appears patient has been discharged from [place] [facility] around 10:00 AM. His blood sugar has greatly improved and is at/near range per pump report today (see below). Please reach out to patient/ to see how patient is doing. I will also have Gaye (pump guide dog trainer) reach out to them to [...] LPN 09/27/2024 5:50 PM Signed Please see Fest[employer] message 09/27/24 Allergies As of Date: 09/26/2024 (No Known Allergies) Date Reviewed: 09/25/2024 Reviewed by: Ayana Zavala APRN.SHIRT HEMMER - Fully Assessed Prescriptions as of 09/27/2024 [...] 5,) crtg Change every 72 hours. - ezmshe-shjoakwf-vmhyqwe (CREON) 24,000-76,000 -120,000 unit cpDR Take 2 [...] mucinous (more content not included)...Normal [facility] HospitalALBUMIN/CREATININE RATIO, URINEon 40-60-9694Mfiwdxq DL <= 20 mg/L (U) [Mass/Vol]20.2 mg/LNormalOhioHealth Dublin Methodist Hospital on above:Order Comment: Specimen Type: URINE SPECIMENOrdering Facility: [facility] Address:[address] [place], [place] [address]Performed By: #### UACR ####[facility] LABIA [id number] [address] STATES OF [facility]ILLICOTHE HOSPITALAlbumin/Creatinine (U) [Mass ratio]106 mg/gHigh<30[facility] on above:Order Comment: Specimen Type: URINE SPECIMENOrdering Facility: [facility] Address:[address] [place], [place] [address]Result Comment: Adult Male and Female Nephrotic Criteria: <30 mg/g is considered normal to mildly increased 30-300 mg/g is considered moderately increased >300 mg/g is considered severely increased KDIGO. (2013). KDIGO 2012 Clinical Practice Guideline for the Evaluation and Management of Chronic Kidney Disease. Official Journal of the International Society of Nephrology, 3(1), 1-150.Performed By: #### UACR ####[facility] LABIA [id number] [place] [id number] [place] OF AMERICACreatinine (U) [Mass/Vol]19.1 mg/dLLow20.0-300.0 [facility] on above:Order Comment: Specimen Type: URINE SPECIMENOrdering Facility: [facility] Address:[address] [place], [place] [address]Performed By: #### UACR ####[facility] LABCLIA [id number] [address] [address] [place] OF AMERICACNOVon 22-72-4919HCSSWoerpg Visit (ENDOLN) MANOLO ROCHE ([id number]) 1935 M Date Time Provider Department 09/25/24 2:30 PM AYANA ZAVALA During your visit today, we recorded the following information about you: Pulse Blood pressure Weight 60/minute 162/93 63.1 kg Ayana Zavala, AMADA.SHIRT HEMMER 09/26/2024 11:42 AM Addendum Endocrinology Follow Up [...] in the meantime, but was able to berry picker Novolog on 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 in [place]. Per patient, this was done due to [...] by mouth once daily. Intestinal Chayo Modifiers zupofz-ttooigro-xunkwhj (CREON) 24,000-76,000 -120,000 unit cpDR Take 2 capsules by mouth three times daily with meals. and 1 with snacks (8/day) Digestive Enzyme Mixtures lutein-zeaxanthin 25-5 mg cap Take by mouth once daily. Alternative Therapy - Antioxidant Omeprazole Magnesium 20 mg tablet Take 20 mg by mouth. Gastric Acid Secretion Hemmer Automatic - Proton Pump Inhibitors (PPIs) PARoxetine (PAXIL) 40 mg tablet Take 40 mg by mouth every morning. Antidepressant - Selective Serotonin Reuptake Inhibitors (SSRIs) tamsulosin (more content not included)...NormalMercy Health Allen Hospital Comprehensive metabolic 2000 panelon 54-37-1242Zebcerw [Mass/Vol]3.9 g/dLNormal 3.9-4.9CC[facility] on above:Order Comment: Specimen Type: BLOOD SPECIMENOrdering Facility: [facility] Address:[address] [place], [place] [address]Performed By: #### 15627-2, LIPNF ####[facility] LABCLIA [id number] [place] [address] [place] OF AMERICAALP [Catalytic activity/Vol]156 U/EOqwk37-112RvvhuzfjwOhioHealth Dublin Methodist Hospital on above:Order Comment: Specimen Type: BLOOD SPECIMENOrdering Facility: [facility] Address:[address] [place], [place] [address]Performed By: #### 42794-2, LIPNF ####[facility] LABCLIA [id number] [place] [address] [place] AMERICAALT [Catalytic activity/Vol]43 U/TOkpuxn01-50NsrdxqgdqOhioHealth Dublin Methodist Hospital on above:Order Comment: Specimen Type: BLOOD SPECIMENOrdering Facility: [facility] Address:[address] [place], [place] [address]Performed By: #### 72530-3, LIPNF ####[facility] LABCLIA [id number] [address] [place] [facility] [place] Anion gap [Moles/Vol]17 mmol/LHigh8-15[facility] on above:Order Comment: Specimen Type: BLOOD SPECIMENOrdering Facility: [facility] Address:[address] [place], [place] [address]Performed By: #### 44100-7, LIPNF ####[facility] LABCLIA [id number] [place] [address] [place] AMERICAAST [Catalytic activity/Vol]76 U/VPnax94-84BrdsgfrkxOhioHealth Dublin Methodist Hospital on above:Order Comment: Specimen Type: BLOOD SPECIMENOrdering Facility: [facility] Address:[address] [place], [place] [address]Performed By: #### 52045- 8, LIPNF ####[facility] LABCLIA [id number] [place] [address] [place] AMERICABilirubin [Mass/Vol]0.5 mg/dLNormal0.2-1.3CCleveland Clinic [facility] on above:Order Comment: Specimen Type: BLOOD SPECIMENOrdering Facility: [facility] Address:[address] [place], [place] [address]Performed By: #### 51818-3, LIPNF ####[facility] LABIA [id number] [place] [address] [place] AMERICACalcium [Mass/Vol]9.3 mg/dLNormal 8.5-10.2CC[facility] Clinic [facility] on above:Order Comment: Specimen Type: BLOOD SPECIMENOrdering Facility: [facility] Address:[address] [place], [place] [address]Performed By: #### 63399-2, LIPNF ####[facility] LABCLIA [id number] [place] [address] [place] AMERICAChloride [Moles/Vol]86 mmol/ZAnb12-410KopacykwrOhioHealth Dublin Methodist Hospital on above:Order Comment: Specimen Type: BLOOD SPECIMENOrdering Facility: [facility] Address:[address] [place], [place] [address]Performed By: #### 13938-2, LIPNF ####[facility] LABIA [id number] [place] [address] [place] OF AMERICACO2 [Moles/Vol]24 mmol/CSyockw47-12BzbqhhqshMercy Health Allen Hospital Comment on above:Order Comment: Specimen Type: BLOOD SPECIMENOrdering Facility: [facility] Address:[address] [place] [address] Performed By: #### 83552-3, LIPNF ####[facility] LABIA [id number] [address] STATES [place] Creatinine [Mass/Vol]1.09 mg/dLNormal0.73-1.22[facility] on above:Order Comment: Specimen Type: BLOOD SPECIMENOrdering Facility: [facility] Address:[address] [place] [address] Performed By: #### 46873-1, LIPNF ####[facility] [id number] [address] Creatinine and Glomerular filtration rate.predicted panel (S/P/Bld)66 mL/min/1.73m???Normal>=60[facility] on above:Order Comment: Specimen Type: BLOOD SPECIMENOrdering Facility: [facility] Address:[address] [place], [place] [address]Result Comment: Estimated Glomerular Filtration Rate (eGFR) is [...] not accurately reflect actual GFR.Performed By: #### 71436-5, LIPNF ####[facility] LABCLIA [id number] [place] [address] [place] AMERICAGlucose [Mass/Vol]614 mg/dLHigh 74-99[facility] on above:Order Comment: Specimen Type: BLOOD SPECIMENOrdering Facility: [facility] Address:[address] [place], [place] [address]Result Comment: The [place] Diabetes Association (ADA) provides guidance for cutoff [...] Standards of Medical Care in Diabetes 2016, [place] Diabetes Association. Diabetes Care. 2016.39(Suppl 1).Performed By: #### 36730-4, LIPNF ####[facility] LABCLIA [id number] [place] [address] [place] AMERICAPotassium [Moles/Vol]5.2 mmol/L High3.7-5.1CCleveland Clinic Marymount Hospital on above:Order Comment: Specimen Type: BLOOD SPECIMENOrdering Facility: [facility] Address:[address] [place], [place] [address]Performed By: #### 05886-7, LIPNF ####[facility] LABIA [id number] [place] [address] [place] OF AMERICAProtein [Mass/Vol]7.1 g/dLNormal6.3-8.0[facility] on above:Order Comment: Specimen Type: BLOOD SPECIMENOrdering Facility: [facility] Address:[address] [place], [place] [address]Performed By: #### 38129-3, LIPNF ####[facility] LABCLIA [id number] [address] [address] [place] OF AMERICASodium [Moles/Vol]127 mmol/MQia499-108LzbhzxlkdOhioHealth Dublin Methodist Hospital on above:Order Comment: Specimen Type: BLOOD SPECIMENOrdering Facility: [facility] Address:[address] [place], [place] [address]Performed By: #### 96032-9, LIPNF ####[facility] LABCLIA [id number] [place] [address] [place] Urea nitrogen [Mass/Vol]37 mg/dLHigh9-24[facility] on above:Order Comment: Specimen Type: BLOOD SPECIMENOrdering Facility: [facility] Address:[address] [place], [place] [address]Performed By: #### 82915-1, LIPNF ####[facility] LABIA [id number] [address] OF AMERICALIPID PANEL, NONFASTINGon 68-29-0628Axekgcqfuqh [Mass/Vol]144 mg/dLNormal<200[facility] on above:Order Comment: Specimen Type: BLOOD SPECIMENOrdering Facility: [facility] Address:[address] [place], [place] [address]Result Comment: <200 mg/dL, Desirable 200-239 mg/dL, Borderline high >239 mg/dL, HighPerformed By: #### 01340-8, LIPNF ####[facility] LABIA [id number] [address] [place] [address] [place] OF AMERICAHDL CHOLESTEROL, NF51 mg/dLNormal>39[facility] Comment on above:Order Comment: Specimen Type: BLOOD SPECIMENOrdering Facility: [facility] Address:[address] [place], [place] [address]Result Comment: 40-59 mg/dL, Acceptable >59 mg/dL, High: Negative risk factor for coronary heart disease <40 mg/dL, Low: Positive risk factor for coronary heart diseasePerformed By: #### 49344-3, LIPNF ####[facility] LABCLIA [id number] [address] [address] [facility] MEDICAL CENTERLDL CHOLESTEROL, NF59 mg/dLNormal<100[facility] on above: Order Comment: Specimen Type: BLOOD SPECIMENOrdering Facility: [facility] Address:[address] [place], [place] [address]Result Comment: <100 mg/dL, Optimal 100-129 mg/dL, Near optimal/above optimal 130-159 mg/dL, Borderline high 160-189 mg/dL, High >189 mg/dL, Very high Secondary prevention optimal LDL Cholesterol levels are recommended to be < 70 mg/dLPerformed By: #### 89081-8, LIPNF ####[facility] LABIA [id number] [address] LDL/HDL RATIO, NF1.16 mg/dLNormal<2.54[facility] on above:Order Comment: Specimen Type: BLOOD SPECIMENOrdering Facility: [facility] Address:[address] [place], [place] [address]Result Comment: Reference: 1. National Cholesterol Education Program ATP III Guideline At-A-Glance Quick Desk Reference: National Heart, Lung, and Blood [place]. National Institutes of Health. 2001: NIH Publication No. 01-3305. 2. An International Atherosclerosis Society position paper: global recommendations for the management of dyslipidemia: executive summary, Atherosclerosis. 2014: 232(2):410-413.Performed By: #### 02063-8, LIPNF ####[facility] LABIA [id number] [place] [address] [place] OF AMERICANON HDL CHOL, NF93 mg/dLNormal <130[facility] on above:Order Comment: Specimen Type: BLOOD SPECIMENOrdering Facility: [facility] Address:[address] [place], [place] [address]Result Comment: <130 mg/dL, Optimal 130-159 mg/dL, Near optimal/above optimal 160-189 mg/dL, Borderline high 190-219 mg/dL, High >219 mg/dL, Very high Secondary prevention optimal non HDL Cholesterol levels are recommended to be <100 mg/dLPerformed By: #### 22572-7, LIPNF ####[facility] LABCLIA [id number] [address] OF CH[facility]ICOTHE HOSPITALT CHOL/HDL RATIO NF2.82 mg/dLNormal<5.10[facility] Comment on above:Order Comment: Specimen Type: BLOOD SPECIMENOrdering Facility: [facility] Address:[address] [place] [address] Performed By: #### 77406-7, LIPNF ####[facility] [id number] [address] STATES [facility] TRIGLYCERIDES, NF168 mg/dLHigh<150[facility] HospitalComment on above: Order Comment: Specimen Type: BLOOD SPECIMENOrdering Facility: [facility] Address:[address] [place], [place] [address]Result Comment: <150 mg/dL, Normal 150-199 mg/dL, Borderline high 200-499 mg/dL, High >499 mg/dL, Very highPerformed By: #### 73810-3, LIPNF ####[facility] [id number] [address] STATES OF CHILLICOTHE HOSPITALVLDL CHOLESTEROL, NF34 mg/dLHigh<30[facility] Comment on above:Order Comment: Specimen Type: BLOOD SPECIMENOrdering Facility: [facility] Address:[address] [place] [address] Performed By: #### 22969-4, LIPNF ####[facility] [id number] [address] [place] Issa 06-56-6671GHGUKzwoqxwae ([facility]) MANOLO ROCHE ([id number]) 1935 M Date Time Provider Department 09/22/24 [...] Date Reviewed: 07/06/2024 Reviewed by: Ayana Zavala APRN.SHIRT HEMMER - Fully Assessed Prescriptions as of 09/22/2024 [...] 5,) crtg Change every 72 hours. - tccveb-dvovwpmg-woxzvxh (CREON) 24,000-76,000 -120,000 unit cpDR Take 2 [...] *06/23/2018 Encounter Status:Closed by GAYE MATA on 09/22/24NoBlanchard Valley Health SystemValdemarphone (LIANNA) MANOLO ROCHE ([id number]) 1935 M Date Time Provider Department 09/22/24 [...] Date Reviewed: 07/06/2024 Reviewed by: Ayana Zavala APRN.SHIRT HEMMER - Fully Assessed Reason for Visit: Omnipod [...] 5,) crtg Change every 72 hours. - tppvxf-pxyxvclr-gnsoyff (CREON) 24,000-76,000 -120,000 unit cpDR Take 2 [...] *06/23/2018 Encounter Status:Closed by GAYE MATA on 09/22/24[facility] 72-69-7109MNCSVmpniqvlq (LIANNA) MANOLO ROCHE ([id number]) 1935 M Date Time Provider Department 09/21/24 GAYE MATA During your visit today, we recorded the following information about you: Allergies As of Date: 09/21/2024 (No Known Allergies) Date Reviewed: 07/06/2024 Reviewed by: Ayana Zavala APRN.SHIRT HEMMER - Fully Assessed Reason for Visit: Omod [...] 5,) crtg Change every 72 hours. - vycjck-suzwndwf-danlyrv (CREON) 24,000-76,000 -120,000 unit cpDR Take 2 [...] *06/23/2018 Encounter Status:Closed by GAYE MATA on 09/21/24NoSt. [facility] BASIC METABOLIC PANELon 88-68-4143Jzssn gap [Moles/Vol]13.1 mmol/L [facility]OM[facility] HealthcareCalcium [Mass/Vol]9 mg/dL8.5 - 10.1 mg/dLNOMS HealthcareChloride [Moles/Vol]99 mmol/L98 - 107 mmol/LNOMS HealthcareCO2 [Moles/Vol]31.2 mmol/L21.0 - 32.0 mmol/LNOMS HealthcareCreatinine [Mass/Vol]1.31 mg/dLHigh0.70 - 1.30 mg/dLNOMS HealthcareGFR/1.73 sq M.predicted CKD-EPI (S/P/Bld) [Vol rate/Area]>60 >=60 mL/min/1.73m 2NOMS HealthcareGlucose [Mass/Vol]385 mg/oHZbrg68 - 106 mg/dL [facility] HealthcarePotassium [Moles/Vol]4.3 mmol/L3.5 - 5.1 mmol/LNOMS Healthcare Sodium [Moles/Vol]139 mmol/L136 - 145 mmol/LNOMS HealthcareTBH EGFR-NON AF HGUXLYIP90Tyj>=60 mL/min/1.73m 2NOMS HealthcareUrea nitrogen [Mass/Vol]23 mg/dL High7.0 - 18.0 mg/dLNOMS HealthcareUrea nitrogen/Creatinine [Mass ratio]17.6 mg/mgNOMS HealthcareALL PRO BNPon 59-01-7644PL PRO B TYPE NATRIURETIC [id number] pg/mLCritically highNINF - 1800.0 pg/mLNOMS HealthcareComment on above:RESULTS CALLED TO ZENAIDA SANDOVAL RN AT [facility] Panel Informationon 09-13-2024 Interpretation and review of laboratory resultsAbnormalNOIA HealthcareCLINISYNC NOMS HealthcareCNNURSEon 73-70-2319JLXTVVURravi Visit (LIANNA) MANOLO ROCHE ([id number]) 1935 M Date Time Provider Department 09/04/24 1:00 PM GAYE MATA During your visit today, we recorded the following information about you: Gaye Mata, KARIN 09/04/2024 3:22 PM Signed DIABETES SELF-MANAGEMENT EDUCATION AND SUPPORT FOLLOW-UP VISIT Type of Diabetes: Type 2 Location: [place] Type of visit: In person individual Types [...] meter for manual fingersticks, not connected to [employer] Electro[employer] Systemsod duuin Type of visit: In person individual Patient [...] Name: [employer] Omnipod? 5 System Serial Number: [id number] Sync Date: 09/04/24 Device Time Offset (hh:mm): +00:00 Device Name: Insulet Omnipod Dash? System Serial Number: [id number] Sync Date: 03/05/22 Device Time Offset (hh:mm): +00:00 Device Name: [employer]let Omnipod Dash? System Serial Number: [id number] Sync Date: 11/14/21 Device Time Offset (hh:mm): +00:00 Device Name: Insulet Omnipod DASH? [place] Serial Number: Insulet Dash Sync Date: 09/19/20 Device Time Offset (hh:mm): +00:00 Device Name: Insulet Omnipod Dash? System Serial Number: [id number] Sync Date: 09/19/20 Device Time Offset (hh:mm): [...] menu to create frequ (more content not included)...NormalCleveland Clinic South Pointe Hospitalon 07-04-1204TVNERaybfwtoa (LIANNA) MANOLO ROCHE ([id number]) 1935 M Date Time Provider Department 08/31/24 [...] Omnipod, Glooko, and Dexcom G7, his smartphone, [employer] 5 controller phone fully charged and updated if needed so the pump start will go smoothly. requested email resent to her with instructions on day of training information to [email or web address] As of Date: 08/31/2024 (No Known Allergies) Date Reviewed: 07/06/2024 Reviewed by: Ayana Zavala APRN.SHIRT HEMMER - Fully Assessed Reason for Visit: Appointment [...] 5,) crtg Change every 72 hours. - xyxaek-qidwqqwx-ekdszqn (CREON) 24,000-76,000 -120,000 unit cpDR Take 2 [...] *06/23/2018 Encounter Status:Closed by GAYE MATA on 08/31/24NoBlanchard Valley Health SystemCNPNon 82-22-3942FVUFBdhdsthoh (ENDOLN) MANOLO ROCHE ([id number]) 1935 M Date Time Provider Department 08/15/24 AYANA ZAVALA ENDOLN During your visit today, we recorded the following information about you: Miguel A Goodwin MA 08/15/2024 10:24 AM Signed Received a fax from [facility] for a physician's order. Placed on Ayana's desk for signature on form and chart notes. Miguel A Goodwin MA 08/15/2024 11:57 AM Signed Form completed, faxed, confirmation received. Sent for scan. Allergies As of Date: 08/15/2024 (No Known Allergies) Date Reviewed: 07/06/2024 Reviewed by: Ayana Zavala APRN.SHIRT HEMMER - Fully Assessed Reason for Visit: Forms [913] Cmt: [employer]- Physcians order Prescriptions as of 08/15/2024 - [...] 5,) crtg Change every 72 hours. - ucgrnp-ljbwuhbh-rqmlhiq (CREON) 24,000-76,000 -120,000 unit cpDR Take 2 [...] *06/23/2018 Encounter Status:Closed by ERICK PEGUERO on 08/15/24[facility] Hospitaldanuta 40-15-8242XEOEXpdsluqiv (ENDOLN) MANOLO ROCHE ([id number]) 1935 M Date Time Provider Department 08/09/24 AYANA ZAVALA During your visit today, we recorded the following information about you: Sheryl Ny MA 08/09/2024 10:39 AM Signed A form has been received from [employer] for [facility] steen. Faxed [facility] note 07/06/24 to [phone]. Confirmation received. Allergies As of Date: 08/09/2024 (No Known Allergies) Date Reviewed: 07/06/2024 Reviewed by: Ayana Zavala APRN.SHIRT HEMMER - Fully Assessed Reason for Visit: Forms [273] Cmt: [facility] - [facility] note Prescriptions as [...] 5,) crtg Change every 72 hours. - vzshtv-pcekpyyf-nlqsbwp (CREON) 24,000-76,000 -120,000 unit cpDR Take 2 [...] *06/23/2018 Encounter Status:Closed by SHERYL [place] on 08/09/24[facility] 00-22-7781CELHHTTInlqs Visit ([facility]) MANOLO ROCHE ([id number]) 1935 M Date Time Provider Department 07/25/24 1:00 PM GAYE MATA During your visit today, we recorded the following information about you: Gaye Mata, RN 07/25/2024 5:09 PM Signed DIABETES CARE AND EDUCATION VISIT Location: [place] Type of visit: In person individual PATIENT'S [...] - - - - DEVICES Device Name: [employer]? System Serial Number: [id number] Sync Date: 07/06/24 Device Time Offset (hh:mm): [...] basics AND daily use and CGM type: [employer] G7 with reader. Patient understand he will need to download [employer] G7 eliane on his Iphone SE. Patient unable to recall log in for Dexcom eliane. Patient downloaded G6 eliane, not G7 eliane. Educator needed to call [employer] for assistance in resetting password as patient [...] terminology: basal, bolus, carb ratio, BG target, brztllc-wo-yaarc/duration, and patient did not bring insulin vials with him so we were unable to start pump today. Patient and leaving for [place] for a month tomorrow and has rescheduled [...] TOPICS: 1. Patient and to return after [place] trip to start Omnipod 5 switch from [...] vials or have eliane (more content not included)...NormalBarney [facility] BASIC METABOLIC PANELon 31-23-9417Nkxex gap [Moles/Vol]16.6 mmol/LNOMS HealthcareCalcium [Mass/Vol]8.8 mg/dL8.5 - 10.1 mg/dLNOIA HealthcareChloride [Moles/Vol]99 mmol/L98 - 107 mmol/L N[facility] HealthcareCO2 [Moles/Vol]27.6 mmol/L21.0 - 32.0 mmol/LNOMS Healthcare Creatinine [Mass/Vol]1.12 mg/dL0.70 - 1.30 mg/dLNOIA HealthcareGFR/1.73 sq M.predicted CKD-EPI (S/P/Bld) [Vol rate/Area]>60>=60 mL/min/1.73m 2NOMS HealthcareGlucose [Mass/Vol]297 mg/pQPopd90 - 106 mg/dLNOIA Healthcare Interpretation and review of laboratory resultsAbnormalNOIA HealthcarePotassium [Moles/Vol]4.2 mmol/L3.5 - 5.1 mmol/LNOMS HealthcareSodium [Moles/Vol]139 mmol/L 136 - 145 mmol/LNOMS HealthcareTBH EGFR-NON AF LUXEMBOURGER>60>=60 mL/min/1.73m 2 NOMS HealthcareUrea nitrogen [Mass/Vol]22 mg/dLHigh7.0 - 18.0 mg/dLNOIA HealthcareUrea nitrogen/Creatinine [Mass ratio]19.6 mg/mgNOIA Healthcare CLINISYNCNOIA HealthcareCNPNon 31-50-1193AHHAPrugdmbsb ([facility]) MANOLO ROCHE ([id number]) 1935 M Date Time Provider Department 07/21/24 GAYE MATALeeann During your visit today, we recorded the following information about you: Allergies As of Date: 07/21/2024 (No Known Allergies) Date Reviewed: 07/06/2024 Reviewed by: Ayana Zavala APRN.SHIRT HEMMER - Fully Assessed Reason for Visit: Appointment [...] 5,) crtg Change every 72 hours. - rglass-ostutyyw-yvvkvap (CREON) 24,000-76,000 -120,000 unit cpDR Take 2 [...] *06/23/2018 Encounter Status:Closed by GAYE MATA on 07/21/24[address] with Estimated Average Gluon 01-24-4004Qjfavxn [Mass/Vol]235 mg/dL NormalThe [facility] Physician GroupComment on above:Result Comment: PERFORMED BY: [address] [place] [address] PATHOLOGIST CLAY ROASTER ANDRE PERALTA M.D.Performed By: #### GLULS #### Point of Care testing ,HbA1c (Bld) [Mass fraction]9.8 %High4.3-5.6The [facility] Physician GroupComment on above:Result Comment: Increased risk for diabetes: 5.7 - 6.4 diabetes: >6.4 glycemic control for adults with diabetes: <7.0Performed By: #### GLULS #### Point of Care testing ,Acanthocytes [Presence] in Blood by Light microscopyOrdered By: Indra Guillory on 27-16-8333Parbswzotqmx LM Ql (Bld)Acanthocytes [Presence] in Blood by Light microscopyFirelands Regional Medical CenterAlanine aminotransferase [Enzymatic activity/volume] in Serum or PlasmaOrdered By: Indra Guillory on 24-23-6516RTE [Catalytic activity/Vol]Alanine aminotransferase [Enzymatic activity/volume] in Serum or Plasma7-52[facility] EastAlbumin [Mass/volume] in Serum or Plasma by Bromocresol green (BCG) dye binding metho Ordered By: Indra Guillory on 74-49-2165Cmqqcea BCG dye [Mass/Vol]Albumin [Mass/volume] in Serum or Plasma by Bromocresol green (BCG) dye binding metho 3.5-5.7FKettering Health – Soin Medical CenterAlkaline phosphatase [Enzymatic activity/volume] in Serum or PlasmaOrdered By: Indra Guillory on 07-17-2024 ALP [Catalytic activity/Vol]Alkaline phosphatase [Enzymatic activity/volume] in Serum or WjiathMzkj97-304NoytvyxxyRegency Hospital Cleveland EastAnisocytosis LM Ql (Bld)Ordered By: Indra Guillory on 25-26-7323Erpvquzasncs Ql (Bld) Anisocytosis [Presence] in Blood by Light microscopyRegency Hospital Cleveland EastAspartate aminotransferase [Enzymatic activity/volume] in Serum or Plasma Ordered By: Indra Guillory on 34-50-0664QOC [Catalytic activity/Vol] Aspartate aminotransferase [Enzymatic activity/volume] in Serum or Fptaky89-26 [facility] EastBand form neutrophils/100 WBC Manual cnt (Bld) Ordered By: Indra Guillory on 87-65-4421Pckh form neutrophils/100 WBC (Bld) Peripheral white blood cell differential % bands, microscopic exam0-5FKettering Health – Soin Medical CenterBasophils Auto (Bld) [#/Vol]Ordered By: Indra Guillory on 00-33-1621Xavgzatva (Bld) [#/Vol]Automated basophil countRegency Hospital Cleveland EastBasophils/100 WBC Auto (Bld)Ordered By: Indra Guillory on 43-46-2806Mqlcultlu/100 WBC (Bld)Automated basophil %[facility] EastBilirubin.total [Mass/volume] in Serum or PlasmaOrdered By: Indra Guillory on 21-41-0318Jkwvobvuw [Mass/Vol]Bilirubin.total [Mass/volume] in Serum or Plasma0.3-1.0[facility] EastBioFire Not Detectedon 81-30-8247AfqEpdo Not DetectedNot detectedNormalNot DetecteThe [facility] Physician GroupComment on above:Result Comment: This is a duplicate RP2.1 COVID (PCR) result to be used for statistical tracking purpose only. PERFORMED BY: [facility] [address] [place] [address] PATHOLOGIST CLAY ROASTER ANDRE PERALTA M.D.Performed By: #### GLULS #### Point of Care testing ,Blood estimated average glucose determination by estimation from glycated hemoglobinOrdered By: Indra Guillory on 00-98-6727Fpacpeh glucose Estimated from glycated hemoglobin (Bld) [Mass/Vol]Glucose mean value [Mass/volume] in Blood Estimated from glycated hemoglobinRegency Hospital Cleveland EastBurr cells [Presence] in Blood by Light microscopyOrdered By: Indra Guillory on 10-46-2125Fqsb cells LM Ql (Bld)[place] cells [Presence] in Blood by Light microscopyRegency Hospital Cleveland EastCOVID-19 Detected/Not DetectedOrdered By: Indra Guillory on 17-67-9332HEQF-CoV-2 (COVID-19) RNA ANASTASIA+non-probe Ql (Nph)Not detectedNot DetectTriHealthComment on above: This is a duplicate RP2.1 COVID (PCR) result to be used for statistical tracking purpose only.Calcium [Mass/volume] in Serum or PlasmaOrdered By: Indra Guillory on 75-08-6763Vortbvh [Mass/Vol]Calcium [Mass/volume] in Serum or Plasma8.6-10.3FKettering Health – Soin Medical CenterCarbon dioxide, total [Moles/volume] in Serum or PlasmaOrdered By: Indra Guillory on 07-17-2024 CO2 [Moles/Vol]Carbon dioxide, total [Moles/volume] in Serum or Pmugjw83.0-31.0 [facility] EastChloride [Moles/volume] in Serum or Plasma Ordered By: Indra Guillory on 39-12-1567Swfovwvl [Moles/Vol]Chloride [Moles/volume] in Serum or OridodJpo33-838QwfkxetauRegency Hospital Cleveland East Comprehensive Metabolic Panelon 34-38-8767Uukjbri [Mass/Vol]3.6 g/dLNormal 3.5-5.7The [facility] Physician GroupComment on above:Performed By: #### GLULS #### Point of Care testing ,Albumin/Globulin [Mass ratio]1.2 {ratio}NormalThe [facility] Physician Group Comment on above:Performed By: #### GLULS #### Point of Care testing ,ALP [Catalytic activity/Vol]136 U/RUpbl75-353Nvv [facility] Physician Group Comment on above:Performed By: #### GLULS #### Point of Care testing ,ALT [Catalytic activity/Vol]18 U/LNormal7-52The [facility]ician [facility] Comment on above:Performed By: #### GLULS #### Point of Care testing ,Anion gap [Moles/Vol]11.6 mmol/LNormal6.0-15.0The [facility] Comment on above:Performed By: #### GLULS #### Point of Care testing ,AST [Catalytic activity/Vol]20 U/CZyzgmf15-42Wso [facility] Comment on above:Performed By: #### GLULS #### Point of Care testing ,Bilirubin [Mass/Vol]0.6 mg/dLNormal0.3-1.0The [facility] Physician GroupComment on above:Performed By: #### GLULS #### Point of Care testing ,Calcium [Mass/Vol]8.8 mg/dLNormal8.6-10.3The [facility] Physician GroupComment on above:Performed By: #### GLULS #### Point of Care testing ,Chloride [Moles/Vol]96 mmol/NCqp54-031Oht [facility] Physician GroupComment on above:Performed By: #### GLULS #### Point of Care testing ,CO2 [Moles/Vol]28.2 mmol/YYtegwv83.0-31.0The [facility] Physician GroupComment on above:Performed By: #### GLULS #### Point of Care testing ,Creatinine [Mass/Vol]1.03 mg/dLNormal0.70-1.30The [facility]ician [facility] Comment on above:Performed By: #### GLULS #### Point of Care testing ,Creatinine Clr Calc Rjhcyksb28.38NormPhysicians Regional Medical Center - Collier Boulevard Physician GroupComment on above:Result Comment: PERFORMED BY: [facility] [place] [address] PATHOLOGIST CLAY ROASTER ANDRE PERALTA M.D.Performed By: #### GLULS #### Point of Care testing ,GFR/1.73 sq M.predicted MDRD (S/P/Bld) [Vol rate/Area]mL/min/{1.73_m2}NormalThe [facility] Physician GroupComment on above:Performed By: #### GLULS #### Point of Care testing ,Globulin (S) [Mass/Vol]3.0 g/dLNoMission Hospital McDowell Physician GroupComment on above:Performed By: #### GLULS #### Point of Care testing ,Glucose [Mass/Vol]443 mg/dLSignificant change nx42-162Esk [facility] Physician GroupComment on above:Result Comment: Random Glucose Reference Range is dependent on time and content of last meal. Glucose of more than 200 mg/dL in a nonstressed, ambulatory subject supports the diagnosis of Diabetes Mellitus. ADA recommended reference rangePerformed By: #### GLULS #### Point of Care testing ,Potassium [Moles/Vol]4.8 mmol/LNormal3.5-5.1The [facility] Comment on above:Performed By: #### GLULS #### Point of Care testing ,Protein [Mass/Vol]6.6 g/dLNormal6.4-8.9The [facility] Physician GroupComment on above:Performed By: #### GLULS #### Point of Care testing ,Sodium [Moles/Vol]131 mmol/ORrs623-258Wwk [facility] Physician GroupComment on above:Performed By: #### GLULS #### Point of Care testing ,Urea nitrogen [Mass/Vol]20 mg/dLNormal7-25The [facility] Physician GroupComment on above:Performed By: #### GLULS #### Point of Care testing ,Creatinine [Mass/volume] in Serum or PlasmaOrdered By: Indra Guillory on 19-12-7902Sjxhadzhol [Mass/Vol]Creatinine [Mass/volume] in Serum or Plasma 0.70-1.30[facility] EastDiff and CBCon 35-83-8094Gelqrhfqhyhy MarkedOrlando Health South Lake Hospital Physician GroupComment on above:Performed By: #### GLULS #### Point of Care testing ,Anisocytosis Ql (Bld)ModerateOrlando Health South Lake Hospital Physician GroupComment on above:Performed By: #### GLULS #### Point of Care testing ,Band form neutrophils/100 WBC (Bld)1 %Normal0-5The [facility] Physician [facility] Comment on above:Performed By: #### GLULS #### Point of Care testing ,Crenated RBCModerateOrlando Health South Lake Hospital Physician GroupComment on above: Performed By: #### GLULS #### Point of Care testing ,Erythrocyte distribution width (RBC) [Ratio]19.7 %High12.0-14.8The [facility] Physician GroupComment on above:Performed By: #### GLULS #### Point of Care testing ,Helmet CellsSlightOrlando Health South Lake Hospital Physician GroupComment on above:Performed By: #### GLULS #### Point of Care testing ,Hematocrit (Bld) [Volume fraction]37.8 %Low38.8-50.0The [facility] Physician GroupComment on above:Performed By: #### GLULS #### Point of Care testing ,Hemoglobin (Bld) [Mass/Vol]12.4 g/dLLow13.0-17.0[facility] Physician [facility] Comment on above:Performed By: #### GLULS #### Point of Care testing ,HypochromasiaMarkedOrlando Health South Lake Hospital Physician GroupComment on above: Performed By: #### GLULS #### Point of Care testing ,Lymphocytes/100 WBC (Bld)18 %Uvlgyq59-98Gtz [facility] Physician GroupComment on above:Performed By: #### GLULS #### Point of Care testing ,MCH (RBC) [Entitic mass]26.3 pgLow27.5-35.2The [facility] Physician GroupComment on above:Performed By: #### GLULS #### Point of Care testing ,MCV (RBC) [Entitic vol]80.0 fLLow83.5-101The [facility] Physician GroupComment on above:Performed By: #### GLULS #### Point of Care testing ,Mean Corpuscular HGB Conc32.8 g/iUDqgujt60.5-35.6The [facility] Comment on above:Performed By: #### GLULS #### Point of Care testing ,MicrocytosisSlightOrlando Health South Lake Hospital Physician GroupComment on above:Performed By: #### GLULS #### Point of Care testing ,Monocytes/100 WBC (Bld)4 %Normal2-11The [facility] Physician GroupComment on above:Performed By: #### GLULS #### Point of Care testing ,Platelet EstimateNormalNormalOrlando Health South [facility] Hospital Physician GroupComment on above:Performed By: #### GLULS #### Point of Care testing ,Platelet mean volume (Bld) [Entitic vol]11.0 fLHigh6.6-10.1The [facility] Physician GroupComment on above:Performed By: #### GLULS #### Point of Care testing ,Platelet MorphologyNormalNormalOrlando Health South Lake Hospital Physician GroupComment on above:Result Comment: PERFORMED BY: [facility] [address] [place] [address] PATHOLOGIST CLAY ROASTER ANDRE PERALTA M.D.Performed By: #### GLULS #### Point of Care testing ,Platelets (Bld) [#/Vol]229 10*3/mHZdthiq935-767DmxThe [facility]ty [facility] Comment on above:Performed By: #### GLULS #### Point of Care testing ,PoikilocytosisMarkedOrlando Health South Lake Hospital Physician GroupComment on above: Performed By: #### GLULS #### Point of Care testing ,PolychromasiaSlightNoMission Hospital McDowell Physician GroupComment on above: Performed By: #### GLULS #### Point of Care testing ,RBC (Bld) [#/Vol]4.73 10*6/uLNormal3.90-5.60[facility] Physician [facility] Comment on above:Performed By: #### GLULS #### Point of Care testing ,SchistocytesModerateOrlando Health South Lake Hospital Physician GroupComment on above: Performed By: #### GLULS #### Point of Care testing ,Segmented neutrophils/100 WBC (Bld)77 %Kvox78-41Mdz [facility] Comment on above:Performed By: #### GLULS #### Point of Care testing ,Target CellsModGainesville VA Medical Center Physician GroupComment on above: Performed By: #### GLULS #### Point of Care testing ,WBC (Bld) [#/Vol]4.8 10*3/uLNormal4.1-10.5The [facility] Physician GroupComment on above:Performed By: #### GLULS #### Point of Care testing ,Eosinophils Auto (Bld) [#/Vol]Ordered By: Indra Guillory on 07-17-2024 Eosinophils (Bld) [#/Vol]Automated eosinophil countRegency Hospital Cleveland EastEosinophils/100 WBC Auto (Bld)Ordered By: Indra Guillory on 23-87-5273Hympsmsitwp/100 WBC (Bld)Automated eosinophil %[facility] EastErythrocyte distribution width Auto (RBC) [Ratio]Ordered By: Indra Guillory on 25-72-0633Jepowzaqepk distribution width (RBC) [Ratio] Erythrocyte distribution width [Ratio] by Automated bcidxYhxv17.0-14.8[facility] EastErythrocyte morphology finding [Identifier] in Blood Ordered By: Indra Guillory on 27-42-6967VTM morphology finding Nom (Bld)RBC morphologyRegency Hospital Cleveland EastGlobulin Calc (S) [Mass/Vol]Ordered By: Indra Guillory on 23-23-0264Xujzklyo (S) [Mass/Vol]Serum globulin measurement by calculation (mass/volume)[facility] EastGlucose Glucometer (BldC) [Mass/Vol]Ordered By: Lisa Hidalgo on 56-80-2343Zngyjcm [Mass/Vol]Capillary blood glucose measurement by glucometer (mass/volume) [facility] EastComment on above:Random Glucose Reference Range is dependent on time and content of last meal. Glucose of more than 200 mg/dL in a nonstressed, ambulatory subject supports the diagnosis of Diabetes Mellitus.Glucose Poct Glucometerson 36-51-0434Yjsndvv [Mass/Vol]299 mg/dLNormal The [facility] Physician GroupComment on above:Result Comment: Random Glucose Reference Range is dependent on time and content of last meal. Glucose of more than 200 mg/dL in a nonstressed, ambulatory subject supports the diagnosis of Diabetes Mellitus. PERFORMED BY: [place] [id number] PATHOLOGIST CLAY ROASTER ANDRE PERALTA M.D.Performed By: #### GLULS ####Point of Care testing, Glucose [Mass/Vol]341 mg/dLNoMission Hospital McDowell Physician GroupComment on above: Result Comment: Random Glucose Reference Range is dependent on time and content of last meal. Glucose of more than 200 mg/dL in a nonstressed, ambulatory subject supports the diagnosis of Diabetes Mellitus. PERFORMED BY: [address] [place] [address] PATHOLOGIST CLAY ROASTER ANDRE PERALTA M.D.Performed By: #### GLULS #### Point of Care testing ,Glucose [Mass/Vol]386 mg/dLNoMission Hospital McDowell Physician GroupComment on above: Result Comment: Random Glucose Reference Range is dependent on time and content of last meal. Glucose of more than 200 mg/dL in a nonstressed, ambulatory subject supports the diagnosis of Diabetes Mellitus. PERFORMED BY: [address] [address] PATHOLOGIST CLAY ROASTER ANDRE PERALTA M.D.Performed By: #### GLULS ####Point of Care testing, Gdlolcz5JfapivLycOrlando Health South Lake Hospital Physician GroupComment on above:Result Comment: Glu2: Will Repeat TestPerformed By: #### GLULS #### Point of Care testing ,Lxeagva8ARHL NOTIFY DR/KARINTyler HospitalComment on above: Performed By: #### GLULS #### Point of Care testing ,Umbmhyh8Hwhitlb MeterOrlando Health South Lake Hospital Physician GroupComment on above:Result Comment: PERFORMED BY: [place] [address] PATHOLOGIST CLAY ROASTER ANDRE PERALTA M.D.Performed By: #### GLULS #### Point of Care testing ,Glucose [Mass/Vol]406 mg/dLOff scale [facility] Physician GroupComment on above:Result Comment: Random Glucose Reference Range is dependent on time and content of last meal. Glucose of more than 200 mg/dL in a nonstressed, ambulatory subject supports the diagnosis of Diabetes Mellitus.Performed By: #### GLULS #### Point of Care testing ,Itxuizx0IefvgqEzf[address] Physician GroupComment on above:Result Comment: Glu2: WILL NOTIFY DR/RN PERFORMED BY: [place] [address] PATHOLOGIST CLAY ROASTER ANDRE PERALTA M.D.Performed By: #### GLULS #### Point of Care testing ,Glucose [Mass/Vol]451 mg/dLOff scale [facility] Physician GroupComment on above:Result Comment: Random Glucose Reference Range is dependent on time and content of last meal. Glucose of more than 200 mg/dL in a nonstressed, ambulatory subject supports the diagnosis of Diabetes Mellitus.Performed By: #### GLULS #### Point of Care testing ,Hekagtr5GfxtdwQyt[address] Physician GroupCompranay on above:Result Comment: Glu2: Will Repeat Test PERFORMED BY: [place] [address] PATHOLOGIST CLAY ROASTER ANDRE PERALTA M.D.Performed By: #### GLULS #### Point of Care testing ,Glucose [Mass/Vol]444 mg/dLOff scale [facility] Physician GroupComment on above:Result Comment: Random Glucose Reference Range is dependent on time and content of last meal. Glucose of more than 200 mg/dL in a nonstressed, ambulatory subject supports the diagnosis of Diabetes Mellitus.Performed By: #### GLULS #### Point of Care testing ,Glucose [Mass/volume] in Serum or PlasmaOrdered By: Indra Guillory on 87-01-7857Tmmoyec [Mass/Vol]Glucose [Mass/volume] in Serum or PlasmaInvalid Interpretation Rzwv37-670LnabpelvtRegency Hospital Cleveland EastComment on above: Delta: 191 on 07/16/24-0ADA recommended reference rangeRandom Glucose Reference Range is dependent on time and content of last meal. Glucose of more than 200 mg/dL in a nonstressed, ambulatory subject supports the diagnosis of Diabetes Mellitus.Helmet cells [Presence] in Blood by Light microscopyOrdered By: Indra Guillory on 68-31-9954Etzvks cells LM Ql (Bld)Helmet cell detectionRegency Hospital Cleveland EastHematocrit Auto (Bld) [Volume fraction]Ordered By: Indra Guillory on 16-43-6017Bdvvggohrl (Bld) [Volume fraction]Hematocrit [Volume Fraction] of Blood by Automated yeldqEoj38.8-50.0 [facility] EastHemoglobin A1c/Hemoglobin.total in BloodOrdered By: Indra Guillory on 01-42-4646KjS2p (Bld) [Mass fraction]Hemoglobin A1c percentageHigh4.3-5.6FKettering Health – Soin Medical CenterComment on above:Increased risk for diabetes: 5.7 - 6.4diabetes: >6.4glycemic control for adults with diabetes: <7.0Hemoglobin [Mass/volume] in BloodOrdered By: Indra Guillory on 43-20-3774Mhomranmbo (Bld) [Mass/Vol]Hemoglobin [Mass/volume] in RofdkRgf08.0-17.0[facility] EastHypochromia LM Ql (Bld)Ordered By: Indra Guillory on 67-06-4343Pwbiizggwwr Ql (Bld)Hypochromia [Presence] in Blood by Light microscopyRegency Hospital Cleveland EastINR in Platelet poor plasma by Coagulation assayOrdered By: Indra Guillory on 13-45-1820AXG Coag (PPP) [Relative time]INR in Platelet poor plasma by Coagulation assay [facility] EastComment on above:INR Therapeutic Range A) Pre- and [...] P25-12 Received: 07/17/24 Status: LYUDMILA Gómez Num: [id number] Spec Type: Impression Subm Dr: Indra Guillory MD Tissues: PATHPER Procedures: PATHREVIEW Age/ Patient Sex Location Account Attending Physician Manolo Roche 89/M 4N [id number] Lisa Hidalgo MD SPEC NUM: [id number] RECD: 07/17/24 STATUS: LYUDMILA REQ NUM: [id number] MARANDA: 07/17/24 DR: Indra Guillory MD ENTERED: 07/17/[address]: SPEC TYPE: Impression DEPT: [place] ORDERED: PATHREVIEW ORDERED: PATHREVIEW Pathologist Review Abnormal [...] CBC laboratory follow- ups are also suggested [facility] [id number] Specimen: Received: 07/17/24 Status: LOVELeeann Gómez Num: [id number] Spec Type: Impression Subm Dr: Indra Guillory MD Tissues: PATHPER Procedures: PATHREVIEW Patient: Manolo Roche [id number] (Continued) Specimen: Received: 07/17/24 (Continued) Signed (signature on file) Donovan Bunch MD 07/17/24 1128 Specimen: Received: 07/17/24 Status: LYUDMILA Gómez Num: [id number] Spec Type: Impression Subm Dr: Indra Guillory MD Tissues: PATHPER Procedures: PATHREVIEW Patient: Manolo Roche [id number] (Continued) Specimen: [id number] Received: 07/17/24-851 (Continued) CBC [...] P25-12 Received: 07/17/24 Status: LYUDMILA Gómez Num: [id number] Spec Type: Impression Subm Dr: Indra Guillory MD Tissues: PATHPER Procedures: PATHREVIEW Patient: Manolo Roche [id number] (Continued) Signed (signature on file) IreneSalo Julio C (more content not included)...NormalNch Healthcare System [facility] Naples Physician GroupLeukocytes [#/volume] corrected for nucleated erythrocytes in Blood by Automated counOrdered By: Indra Guillory on 07-50-2772CZI corrected for nucl RBC Auto (Bld) [#/Vol] Leukocytes [#/volume] corrected for nucleated erythrocytes in Blood by Automated coun4.1-10.5FKettering Health – Soin Medical CenterLymphocytes Auto (Bld) [#/Vol] Ordered By: Indra Guillory on 83-29-6714Zcfqvmpfsxz (Bld) [#/Vol] Lymphocytes [#/volume] in Blood by Automated countRegency Hospital Cleveland EastLymphocytes/100 WBC Auto (Bld)Ordered By: Indra Guillory on 50-85-5445Foueofrefvk/100 WBC (Bld)Lymphocytes/100 leukocytes in Blood by Automated countRegency Hospital Cleveland EastLymphocytes/100 WBC Manual cnt (Bld)Ordered By: Indra Guillory on 78-49-4369Oxjeqylnaub/100 WBC (Bld) Lymphocytes/100 leukocytes in Blood by Manual kcofb23-85ZsxfxrpthGood Samaritan Hospital Auto (RBC) [Entitic mass]Ordered By: Indra Guillory on 69-52-1104NRO (RBC) [Entitic mass]MCH [Entitic mass] by Automated countLow 27.5-35.2FKettering Health – Soin Medical CenterMCHC Auto (RBC) [Mass/Vol]Ordered By: Indra Guillory on 90-43-7547SVZA (RBC) [Mass/Vol]MCHC [Mass/volume] by Automated count32.5-35.6FMagruder HospitalV Auto (RBC) [Entitic vol]Ordered By: Indra Guillory on 62-45-2538VRK (RBC) [Entitic vol]MCV [Entitic volume] by Automated hbpizCcv78.5-101[facility] Microcytes LM Ql (Bld)Ordered By: Indra Guillory on 18-73-2856Ethokopjog Ql (Bld)Microcytes [Presence] in Blood by Light microscopyRegency Hospital Cleveland EastMonocytes Auto (Bld) [#/Vol]Ordered By: Indra Guillory on 67-75-2965Bhmxmlbrb (Bld) [#/Vol]Automated blood monocyte countRegency Hospital Cleveland EastMonocytes/100 WBC Auto (Bld)Ordered By: Indra Guillory on 54-42-5609Sbnemssqj/100 WBC (Bld)Automated monocyte %[facility] EastMonocytes/100 WBC Manual cnt (Bld)Ordered By: Indra Guillory on 58-55-9576Osypibtru/100 WBC (Bld)Monocytes/100 leukocytes in Blood by Manual count2-11[facility] EastNeutrophils Auto (Bld) [#/Vol]Ordered By: Indra Guillory on 76-55-7188Xqqftqsbnpw (Bld) [#/Vol] Neutrophils [#/volume] in Blood by Automated countRegency Hospital Cleveland EastNeutrophils/100 WBC Auto (Bld)Ordered By: Indra Guillory on 38-27-8181Vxtdhnkqhsj/100 WBC (Bld)Automated neutrophil %[facility] EastNo Panel InformationOrdered By: Indra Guillory on 07-17-2024 Bedside Glucose #[address]/[facility] Bedside Glucose #3 CommentCleaned meterRegency Hospital Cleveland EastBedside Glucose CommentSee commentRegency Hospital Cleveland EastComment on above: Glu2: Will Repeat TestEstimated GFR (CKD-EPI)> 60.0 mL/MinRegency Hospital Cleveland EastPharmacy Creatinine Clearance (Chem45.38Memorial Hospitallides for Pathologist ReviewOrdered path reviewRegency Hospital Cleveland EastNucleated erythrocytes [Presence] in Blood by Automated count Ordered By: Indra Guillory on 02-37-3819Ljlgumjjg RBC Auto Ql (Bld) Nucleated erythrocytes [Presence] in Blood by Automated countRegency Hospital Cleveland EastPartial Thromboplastin Timeon 75-88-3718tWHF Coag (Bld) [Time]30.6 pNpokiu74.1-36.5The [facility] Physician GroupComment on above:Result Comment: A hematocrit value greater than 55% may lead to inaccurate results in coagulation testing. Patients having hematocrit values >55% require a special collection tube for coagulation studies. Please contact the laboratory at [phone] for redraw instructions. PERFORMED BY: [address] [address] PATHOLOGIST CLAY ROASTER ANDRE PERALTA M.D.Performed By: #### GLULS #### Point of Care testing ,Pathologist Slide Reviewon 05-57-9900Aeampvoqqir Slide ReviewOrdered Path ReviewNoMission Hospital McDowell Physician GroupComment on above:Result Comment: PERFORMED BY: [address] [place] [address] PATHOLOGIST CLAY ROASTER ANDRE PERALTA M.D.Performed By: #### GLULS #### Point of Care testing ,Pathology study report documentOrdered By: Donovan Bunch on 07-17-2024 Pathology studyRegency Hospital [place] [facility] Other Platelet adequacy [Presence] in Blood by Light microscopyOrdered By: Indra Guillory on 48-70-1189Yzlsrfckh LM Ql (Bld) Platelet adequacy [Presence] in Blood by Light microscopyNoGreen Cross HospitalPlatelet mean volume Auto (Bld) [Entitic vol]Ordered By: Indra Guillory on 26-69-2627Wasofkog mean volume (Bld) [Entitic vol] Platelet mean volume [Entitic volume] in Blood by Automated countHigh6.6-10.1 [facility] Cleveland EastPlatelet morphology finding [Identifier] in BloodOrdered By: Indra Guillory on 95-08-4598Idloxzjb morphology finding Nom (Bld)Platelet morphology finding [Identifier] in BloodNoGreen Cross HospitalPlatelets Auto (Bld) [#/Vol]Ordered By: Indra Guillory on 82-89-5350Awoxwnfbm (Bld) [#/Vol]Platelets [#/volume] in Blood by Automated ctcin026-891NxikxefceRegency Hospital Cleveland EastPoikilocytosis [Presence] in Blood by Light microscopyOrdered By: Indra Guillory on 07-17-2024 Poikilocytosis LM Ql (Bld)Poikilocytosis [Presence] in Blood by Light microscopy [facility] [place] EastPolychromasia [Presence] in Blood by Light microscopyOrdered By: Indra Guillory on 79-43-7007Htsjgdasbfoap LM Ql (Bld) Polychromasia [Presence] in Blood by Light microscopyRegency Hospital Cleveland EastPotassium [Moles/volume] in Serum or PlasmaOrdered By: Indra Guillory on 31-36-3187Waoqncmmp [Moles/Vol]Potassium [Moles/volume] in Serum or Plasma 3.5-5.1FKettering Health – Soin Medical CenterProtein [Mass/volume] in Serum or Plasma Ordered By: Indra Guillory on 44-76-2248Oxwtwds [Mass/Vol]Protein [Mass/volume] in Serum or Plasma6.4-8.9[facility] [place] Prothrombin Time INRon 06-92-5941LJD Coag (PPP) [Relative time]1.3 {INR}Normal [facility] Physician GroupComment on above:Result Comment: INR [...] Care testing ,PT Coag (PPP) [Time]14.5 sHigh9.0-12.9The [facility] Physician GroupComment on above:Result Comment: A hematocrit value greater than 55% may lead to inaccurate results in coagulation testing. Patients having hematocrit values >55% require a special collection tube for coagulation studies. Please contact the laboratory at [phone] for redraw instructions.Performed By: #### GLULS #### Point of Care testing ,Prothrombin time (PT)Ordered By: Indra Guillory on 83-66-2028RF Coag (PPP) [Time]Prothrombin time (PT)High9.0-12.9[facility] Cleveland EastComment on above:A hematocrit value greater than 55% may lead to inaccurate results in coagulation testing. Patientshaving hematocrit values >55% require a special collection tube for coagulation studies. Please contact the laboratory at [phone] for redraw instructions.RBC Auto (Bld) [#/Vol]Ordered By: Indra Guillory on 85-56-3344XHN (Bld) [#/Vol]Erythrocytes [#/volume] in Blood by Automated count3.90-5.60[facility] [place] EastRespiratory (Upper) Panel, PCRon 77-99-8438Itrlqwoznya (Upper) Panel, PCRResults called at 0548 on [...] Influenza A H3 Blank Space PERFORMED BY: [facility] [address] [place] [address] PATHOLOGIST CLAY ROASTER ANDRE PERALTA M.D.NormalThe [facility] Physician GroupComment on above: Performed By: #### GLULS #### Point of Care testing ,Respiratory pathogens DNA and RNA panel - Nasopharynx by ANASTASIA with non-probe detectionOrdered By: Indra Guillory on 23-13-4938Bxovpwlzhap pathogens DNA and RNA panel ANASTASIA+non-probe (Nph)Respiratory pathogens DNA and RNA panel - Nasopharynx by ANASTASIA with non-probe detectionRegency Hospital [place] East Respiratory pathogens DNA and RNA panel ANASTASIA+non-probe (Nph)Respiratory pathogens DNA and RNA panel - Nasopharynx by ANASTASIA with non-probe detectionMemorial Hospitalchistocytes [Presence] in Blood by Light microscopy Ordered By: Indra Guillory on 71-93-6172Avcutpqazvzz LM Ql (Bld) Schistocytes [Presence] in Blood by Light microscopyMemorial Hospitalegmented neutrophils/100 WBC Manual cnt (Bld)Ordered By: Indra Guillory on 82-12-4465Tvcflknql neutrophils/100 WBC (Bld)Manual blood segmented neutrophils/100 cyrhvpwwodOoar13-86GwnwxztuuMemorial Hospitalerum or plasma albumin/globulin mass ratioOrdered By: Indra Guillory on 07-17-2024 Albumin/Globulin [Mass ratio]Serum or plasma albumin/globulin mass ratio Memorial Hospitalerum or plasma anion gap determinationOrdered By: Indra Guillory on 31-94-8661Ihueg gap [Moles/Vol]Serum or plasma anion gap determination6.0-15.0Memorial Hospitalodium [Moles/volume] in Serum or PlasmaOrdered By: Indra Guillory on 54-84-2811Pmncod [Moles/Vol]Sodium [Moles/volume] in Serum or UrwgjbBqg674-336UbddaubriRegency Hospital Cleveland EastTarget cells [Presence] in Blood by Light microscopyOrdered By: Indra Guillory on 88-33-0675Vdsywr cells LM Ql (Bld)Target cellsRegency Hospital Cleveland EastUrea nitrogen [Mass/volume] in Serum or PlasmaOrdered By: Indra Guillory on 69-72-3458Pyhf nitrogen [Mass/Vol]Urea nitrogen [Mass/volume] in Serum or Plasma7[facility] Hospital [place] EastWBC Auto (Bld) [#/Vol]Ordered By: Indra Guillory on 67-52-7493UPY (Bld) [#/Vol] Leukocytes [#/volume] in Blood by Automated count4.1-10.5FKettering Health – Soin Medical CenteraPTT in Platelet poor plasma by Coagulation assayOrdered By: Indraalexandria Guillory on 82-28-2338bJNB Coag (PPP) [Time]Activated partial thromboplastin time (aPTT) in platelet poor plasma by coagulation a25.1-36.5 [facility] Cleveland EastComment on above:A hematocrit value greater than 55% may lead to inaccurate results in coagulation testing. Patientshaving hematocrit values >55% require a special collection tube for coagulation studies. Please contact the laboratory at [phone] for redraw instructions. B-Type Natriuretic Peptideon 53-21-1234Ohtnqooyqec peptide B (Bld) [Mass/Vol] 2052.0 pg/mLHigh5-100The [facility] Physician GroupComment on above:Result Comment: PERFORMED BY: [facility] [address] [place] [address] PATHOLOGIST CLAY ROASTER ANDRE PERALTA M.D.Performed By: #### PT, BMP, BNP, HS TROP, CK, CBC ####[facility] [address] [place] [address] USABasic Metabolic Panelon 10-40-2637Gehye gap [Moles/Vol]10.2 mmol/LNormal6.0-15.0The [facility] Physician [facility] CenterComment on above:Performed By: #### PT, BMP, BNP, HS TROP, CK, CBC ####[place] [address] [place] [address] USACalcium [Mass/Vol]8.8 mg/dLNormal8.6-10.3The [facility] Physician Group Comment on above:Performed By: #### PT, BMP, BNP, HS TROP, CK, CBC ####[place] [address] USAChloride [Moles/Vol] 99 mmol/MDqrhej08-349Znz [facility] Physician [facility] CenterComment on above:Performed By: #### PT, BMP, BNP, HS TROP, CK, CBC ####[place] [address] USACO2 [Moles/Vol]28.0 mmol/EEqrlud35.0-31.0The [facility] Physician GroupComment on above:Performed By: #### PT, BMP, BNP, HS TROP, CK, CBC ####[place] [address] USACreatinine [Mass/Vol]0.82 mg/dLNormal0.70-1.30The [facility] Physician [facility] CenterComment on above:Performed By: #### PT, BMP, BNP, HS TROP, CK, CBC ####[place] [address] [place] Creatinine Clr Calc Fqeipvdo98.91NormalThe [facility] Physician [facility] CenterComment on above:Result Comment: PERFORMED BY: [facility] [address] [place] [address] PATHOLOGIST CLAY ROASTER ANDRE PERALTA M.D.Performed By: #### PT, BMP, BNP, HS TROP, CK, CBC ####[place] [address] [place] GFR/1.73 sq M.predicted MDRD (S/P/Bld) [Vol rate/Area]mL/min/{1.73_m2}NormalThe [facility] Rehabilitation HospitalComment on above:Performed By: #### PT, BMP, BNP, HS TROP, CK, CBC ####[place] [address] USAGlucose [Mass/Vol]191 mg/yLAefe83-756Gbi [facility] Physician [facility] Comment on above:Result Comment: Random Glucose Reference Range is dependent on time and content of last meal. Glucose of more than 200 mg/dL in a nonstressed, ambulatory subject supports the diagnosis of Diabetes Mellitus. ADA recommended reference rangePerformed By: #### PT, BMP, BNP, HS TROP, CK, CBC ####[place] [address] [place] Potassium [Moles/Vol]4.2 mmol/LNormal3.5-5.1The [facility] Physician GroupComment on above:Performed By: #### PT, BMP, BNP, HS TROP, CK, CBC ####[place] [address] USASodium [Moles/Vol]133 mmol/QXyy770-434Jmj [facility] Physician GroupComment on above:Performed By: #### PT, BMP, BNP, HS TROP, CK, CBC ####[address] [place] [address] USAUrea nitrogen [Mass/Vol]18 mg/dLNormal7-25The [facility] Physician GroupComment on above:Performed By: #### PT, BMP, BNP, HS TROP, CK, CBC ####[place] [address] USABasophils Auto (Bld) [#/Vol]Ordered By: PROVIDER TEMP on 07-16-2024 Basophils (Bld) [#/Vol]Automated basophil count0.0-0.2FKettering Health [facility] Soin Medical CenterBasophils/100 WBC Auto (Bld)Ordered By: PROVIDER TEMP on 07-16-2024 Basophils/100 WBC (Bld)Automated basophil %.[facility] EastCT angio chest PE protocolon 81-26-2094RB angio chest PE protocolKETTERING HEALTH MIAMISBUR[facility] [address] [place] [address] CT Scan Report Signed Patient: Manolo Roche MR#: [id number] 353 : 1935 Acct:[id number] Age/Sex: 89 / M ADM Date: 07/16/24 Loc: ER Room: Type: [facility] ER Attending Dr: Copies to: Bertin Smith [...] Sergei Valentin M.D.07/16/2024 4:48 PM Dictation Location: [place] [address] Transcribed By: ERIBERTO 07/16/24 5568 Dictated By: Sergei Valentin II, MD 07/16/24 1636 Signed By: 07/16/24 5498[facility] Physician GroupCalcium [Mass/volume] in Serum or PlasmaOrdered By: PROVIDER TEMP on 07-93-7352Mfvfohw [Mass/Vol]Calcium [Mass/volume] in Serum or Plasma8.6-10.3FKet[facility] Soin Medical CenterCarbon dioxide, total [Moles/volume] in Serum or PlasmaOrdered By: PROVIDER TEMP on 68-87-4681LE8 [Moles/Vol]Carbon dioxide, total [Moles/volume] in Serum or Plasma 21.0-31.0[facility] EastChloride [Moles/volume] in Serum or PlasmaOrdered By: PROVIDER TEMP on 03-40-9132Mknqiofw [Moles/Vol]Chloride [Moles/volume] in Serum or Clghvr90-289GnvrwamhnRegency Hospital Cleveland EastComplete Blood Count Auto Diffon 40-20-5670Zvafagrlu (Bld) [#/Vol]0.1 10*3/uLNormal 0.0-0.2The [facility] Physician GroupComment on above:Result Comment: PERFORMED BY: [facility] [address] [place] [address] PATHOLOGIST CLAY ROASTER ANDRE PERALTA M.D.Performed By: #### PT, BMP, BNP, HS TROP, CK, CBC ####[place] [address] [place] Basophils/100 WBC (Bld)0.8 %Normal.The [facility] Physician GroupComment on above:Performed By: #### PT, BMP, BNP, HS TROP, CK, CBC ####[place] [address] USAEosinophils (Bld) [#/Vol]0.2 10*3/uLNormal0.0-0.45The [facility] Physician GroupComment on above:Performed By: #### PT, BMP, BNP, HS TROP, CK, CBC ####[place] [address] USAEosinophils/100 WBC (Bld)2.7 %Normal.The [facility] Physician GroupComment on above:Performed By: #### PT, BMP, BNP, HS TROP, CK, CBC ####[place] [address] USAErythrocyte distribution width (RBC) [Ratio]19.9 %High12.0-14.8The [facility] Physician GroupComment on above:Performed By: #### PT, BMP, BNP, HS TROP, CK, CBC ####[place] [address] USAHematocrit (Bld) [Volume fraction]35.8 %Low38.8-50.0The [facility] Physician GroupComment on above:Performed By: #### PT, BMP, BNP, HS TROP, CK, CBC ####[address] Hemoglobin (Bld) [Mass/Vol]11.7 g/dLLow13.0-17.0The [facility]ician Group Comment on above:Performed By: #### PT, BMP, BNP, HS TROP, CK, CBC ####[place] [address] USALymphocytes (Bld) [#/Vol]1.4 10*3/uLNormal1.00-4.8The [facility] Physician GroupComment on above: Performed By: #### PT, BMP, BNP, HS TROP, CK, CBC ####[place] [address] USALymphocytes/100 WBC (Bld)18.9 %Normal .The [facility] Physician GroupComment on above:Performed By: #### PT, BMP, BNP, HS TROP, CK, CBC ####[address]H (RBC) [Entitic mass]25.9 pgLow27.5-35.2The [facility] Physician GroupComment on above:Performed By: #### PT, BMP, BNP, HS TROP, CK, CBC ####[address]MCV (RBC) [Entitic vol]79.7 fLLow83.5-101The [facility] Physician GroupComment on above:Performed By: #### PT, BMP, BNP, HS TROP, CK, CBC ####[place] [id number] USAMean Corpuscular HGB Conc32.5 g/fCGrvlin50.5-35.6The [facility] Physician GroupComment on above:Performed By: #### PT, BMP, BNP, HS TROP, CK, CBC ####[place] [address] USAMonocytes (Bld) [#/Vol]0.9 10*3/uLHigh0.0-0.8The [facility] Physician GroupComment on above:Performed By: #### PT, BMP, BNP, HS TROP, CK, CBC ####[place] [address] USAMonocytes/100 WBC (Bld)17.82 %Normal0.00-20.00The [facility] Physician GroupComment on above:Result Comment: For adults in ED, MDW > 20.0 may be associated with a higher risk of sepsis during the first 12 hrs of hospital admissionPerformed By: #### PT, BMP, BNP, HS TROP, CK, CBC ####[place] [address] USAMonocytes/100 WBC (Bld)12.8 %Normal.The [facility] Physician GroupComment on above:Performed By: #### PT, BMP, BNP, HS TROP, CK, CBC ####[place] [address] [place] Neutrophils (Bld) [#/Vol]4.7 10*3/uLNormal1.8-7.7The [facility]ician Group Comment on above:Performed By: #### PT, BMP, BNP, HS TROP, CK, CBC ####[place] [id number] USANeutrophils/100 WBC (Bld)64.8 %Normal.The [facility] Physician GroupComment on above:Performed By: #### PT, BMP, BNP, HS TROP, CK, CBC ####[place] [id number] USANRBC%0.2 /100{WBC}Normal0-0.5The [facility] Physician GroupComment on above:Performed By: #### PT, BMP, BNP, HS TROP, CK, CBC ####[address] Platelet mean volume (Bld) [Entitic vol]10.9 fLHigh6.6-10.1The [facility] Physician GroupComment on above:Performed By: #### PT, BMP, BNP, HS TROP, CK, CBC ####[address] Platelets (Bld) [#/Vol]210 10*3/iFRurbzn581-472Ivg [facility] Comment on above:Performed By: #### PT, BMP, BNP, HS TROP, CK, CBC ####[place] [address] USARBC (Bld) [#/Vol] 4.50 10*6/uLNormal3.90-5.60The [facility] Physician GroupComment on above: Performed By: #### PT, BMP, BNP, HS TROP, CK, CBC ####[place] [address] USAWBC (Bld) [#/Vol]7.2 10*3/uLNormal 4.1-10.5The [facility] Physician GroupComment on above:Performed By: #### PT, BMP, BNP, HS TROP, CK, CBC ####[place] [address] USACreatine Kinaseon 82-47-2993BU [Catalytic activity/Vol] 136 U/FCgihyl72-773Jov [facility] Physician GroupComment on above:Performed By: #### PT, BMP, BNP, HS TROP, CK, CBC ####[place] [address] USACreatine kinase [Enzymatic activity/volume] in Serum or PlasmaOrdered By: PROVIDER TEMP on 60-09-1115SZ [Catalytic activity/Vol] Creatine kinase [Enzymatic activity/volume] in Serum or Sjzspm35-191OmuikemvoRegency Hospital Cleveland EastCreatinine [Mass/volume] in Serum or PlasmaOrdered By: PROVIDER TEMP on 34-75-7468Bqsxyvrqrn [Mass/Vol]Creatinine [Mass/volume] in Serum or Plasma0.70-1.30[facility] Cleveland EastECG 12 lead ECGon 69-57-7727IWD 12 [place] [address] Electrocardiograph Report Signed Patient: Manolo Roche MR#: [id number] [birth year] : 1935 Acct:[id number] Age/Sex: 89 / M ADM Date: 07/16/24 Loc: Room: [address] [place] [address] Type: ADM INOo Attending Dr: Indra Guillory [...] : 481 ms Atrial-paced rhythm Confirmed by Bertni Smith DO ([id number]) on 07/16/2024 8:00:21 PM Referred By: Electronically Signed By: Bertin Smith DO Transcribed By: MUS Signed By Bertin Smith DO [address] [place] [address] Physician GroupECG 12 lead [facility] Main [place] [id number] Electrocardiograph Report Signed Patient: Manolo Roche MR#: [id number] [birth year] : 1935 Acct:[id number] Age/Sex: 89 / M ADM Date: 07/16/24 Loc: 3T Room: [address] [place] [address] Type: ADM INOo Attending Dr: Indra Guillory [...] Atrial-paced rhythm Confirmed by Bertin Smith DO ([id number]) on 07/16/2024 8:01:11 PM Referred By: Electronically Signed By: Bertin Smith DO Transcribed By: MUS Signed By Bertin Smith DO [address] [place] [address] Physician GroupEosinophils Auto (Bld) [#/Vol] Ordered By: PROVIDER TEMP on 66-39-4386Xowpumsahox (Bld) [#/Vol]Automated eosinophil count0.0-0.45[facility] Cleveland EastEosinophils/100 WBC Auto (Bld)Ordered By: PROVIDER TEMP on 31-61-3332Gfldwnlhzhb/100 WBC (Bld) Automated eosinophil %.[facility] Cleveland EastErythrocyte distribution width Auto (RBC) [Ratio]Ordered By: PROVIDER TEMP on 54-23-8584Afwhypqnzpq distribution width (RBC) [Ratio]Erythrocyte distribution width [Ratio] by Automated voszaNmdn26.0-14.8[facility] Cleveland EastGlucose Glucometer (BldC) [Mass/Vol]Ordered By: Indra Guillory on 23-21-7007Htlzdps [Mass/Vol] Capillary blood glucose measurement by glucometer (mass/volume)[facility] Cleveland EastComment on above:Random Glucose Reference Range is dependent on time and content of last meal. Glucose of more than 200 mg/dL in a nonstressed, ambulatory subject supports the diagnosis of Diabetes Mellitus. Glucose Poct Glucometerson 83-94-5838Klqeahi [Mass/Vol]327 mg/dLOrlando Health [facility] Lake Hospital Physician GroupComment on above:Result Comment: Random Glucose Reference Range is dependent on time and content of last meal. Glucose of more than 200 mg/dL in a nonstressed, ambulatory subject supports the diagnosis of Diabetes Mellitus. PERFORMED BY: [facility] [address] [place] [address] PATHOLOGIST CLAY ROASTER MOHAMED M EL-FAKHARANY M.D.Performed By: #### GLULS #### Point of Care testing ,Glucose [Mass/volume] in Serum or PlasmaOrdered By: PROVIDER TEMP on 07-16-2024 Glucose [Mass/Vol]Glucose [Mass/volume] in Serum or JhisukJthq07-081XcqdkhhsjRegency Hospital Cleveland EastComment on above:ADA recommended reference rangeRandom Glucose Reference Range is dependent on time and content of last meal. Glucose of more than 200 mg/dL in a nonstressed, ambulatory subject supports the diagnosisof Diabetes Mellitus.Hematocrit Auto (Bld) [Volume fraction]Ordered By: PROVIDER TEMP on 23-24-8220Isdgtrglcz (Bld) [Volume fraction]Hematocrit [Volume Fraction] of Blood by Automated tbrwlRyp85.8-50.0[facility] Cleveland EastHemoglobin [Mass/volume] in BloodOrdered By: PROVIDER TEMP on 07-16-2024 Hemoglobin (Bld) [Mass/Vol]Hemoglobin [Mass/volume] in KkgsqLnb93.0-17.0 [facility] Cleveland EastINR in Platelet poor plasma by Coagulation assayOrdered By: PROVIDER TEMP on 54-98-0899XXP Coag (PPP) [Relative time]INR in Platelet poor plasma by Coagulation assayRegency Hospital [facility] East Comment on above:INR Therapeutic Range A) Pre- [...] by Automated counOrdered By: PROVIDER TEMP on 66-27-3995JCZ corrected for nucl RBC Auto (Bld) [#/Vol]Leukocytes [#/volume] corrected for nucleated erythrocytes in Blood by Automated coun4.1-10.5FKet[facility] Lymphocytes Auto (Bld) [#/Vol]Ordered By: PROVIDER TEMP on 31-39-9905Dqepqausqah (Bld) [#/Vol]Lymphocytes [#/volume] in Blood by Automated count1.00-4.8 [facility] Cleveland EastLymphocytes/100 WBC Auto (Bld)Ordered By: PROVIDER TEMP on 26-51-7874Bfdsfnbsvof/100 WBC (Bld)Lymphocytes/100 leukocytes in Blood by Automated count.[facility] Cleveland EastMCH Auto (RBC) [Entitic mass]Ordered By: PROVIDER TEMP on 52-81-3883VRR (RBC) [Entitic mass]MCH [Entitic mass] by Automated sqpbvUgj91.5-35.2[facility] MCHC Auto (RBC) [Mass/Vol]Ordered By: PROVIDER TEMP on 89-94-2620XFBN (RBC) [Mass/Vol]MCHC [Mass/volume] by Automated count32.5-35.6FK[facility] So[facility] Medical CenterMCV Auto (RBC) [Entitic vol]Ordered By: PROVIDER TEMP on 03-28-0915VEQ (RBC) [Entitic vol]MCV [Entitic volume] by Automated countLow 83.5-101[facility] EastMonocyte distribution width [Entitic volume] in Blood by AutomatedOrdered By: PROVIDER TEMP on 88-98-6264Koattcjp distribution width Auto (Bld) [Entitic vol]Monocyte distribution width [Entitic volume] in Blood by Automated0.00-20.00[facility] Cleveland EastComment on above:For adults in ED, MDW > 20.0 may be associated with a higher risk of sepsis during the first 12 hrs of hospital admissionMonocytes Auto (Bld) [#/Vol] Ordered By: PROVIDER TEMP on 02-60-7539Kyyinojxt (Bld) [#/Vol]Automated blood monocyte countHigh0.0-0.8[facility] EastMonocytes/100 WBC Auto (Bld)Ordered By: PROVIDER TEMP on 23-20-3652Vbqjnkgtk/100 WBC (Bld)Automated monocyte %.[facility] Cleveland EastNatriuretic peptide B [Mass/Vol] Ordered By: PROVIDER TEMP on 90-99-8725Zzkyuwhkjkt peptide B (Bld) [Mass/Vol]BNP ser/plasHigh5-100[facility] EastNeutrophils Auto (Bld) [#/Vol]Ordered By: PROVIDER TEMP on 43-66-7763Zczjdqvjjeu (Bld) [#/Vol] Neutrophils [#/volume] in Blood by Automated count1.8-7.7FK[facility] So[facility] Medical CenterNeutrophils/100 WBC Auto (Bld)Ordered By: PROVIDER TEMP on 91-78-1697Okngbjtolwk/100 WBC (Bld)Automated neutrophil %.[facility] EastNo Panel InformationOrdered By: PROVIDER TEMP on 07-16-2024 Estimated GFR (CKD-EPI)> 60.0 mL/MinRegency Hospital Cleveland EastPharmacy Creatinine Clearance (Chem60.91[facility] Cleveland EastNucleated erythrocytes [Presence] in Blood by Automated countOrdered By: PROVIDER TEMP on 70-82-6738Qfmvetfrx RBC Auto Ql (Bld)Nucleated erythrocytes [Presence] in Blood by Automated count0-0.5FKettering Health – Soin Medical CenterPlatelet mean volume Auto (Bld) [Entitic vol]Ordered By: PROVIDER TEMP on 76-12-1013Uzoejfmy mean volume (Bld) [Entitic vol]Platelet mean volume [Entitic volume] in Blood by Automated countHigh6.6-10.1FK[facility] So[facility] Medical CenterPlatelets Auto (Bld) [#/Vol]Ordered By: PROVIDER TEMP on 10-98-3770Ewehjzabq (Bld) [#/Vol]Platelets [#/volume] in Blood by Automated lyqrz969-252OtsyxftliRegency Hospital Cleveland East Potassium [Moles/volume] in Serum or PlasmaOrdered By: PROVIDER TEMP on 53-22-7392Yebgvnhnp [Moles/Vol]Potassium [Moles/volume] in Serum or Plasma 3.5-5.1FK[facility] Soin Medical CenterProthrombin Time INRon 81-56-9249DOD Coag (PPP) [Relative time]1.2 {INR}NormalThe [facility] Physician GroupComment on above:Result Comment: INR [...] heart valves: 3 - 4.5 PERFORMED BY: [facility] [place] [address] PATHOLOGIST CLAY ROASTER ANDRE PERALTA M.D.Performed By: #### PT, BMP, BNP, HS TROP, CK, CBC ####[facility] [address] [place] [address] USAPT Coag (PPP) [Time]14.3 sHigh9.0-12.9[facility] Physician GroupComment on above: Result Comment: A hematocrit value greater than 55% may lead to inaccurate results in coagulation testing. Patients having hematocrit values >55% require a special collection tube for coagulation studies. Please contact the laboratory at [phone] for redraw instructions.Performed By: #### PT, BMP, BNP, HS TROP, CK, CBC ####[facility] [address] [place] [address] USAProthrombin time (PT) Ordered By: PROVIDER TEMP on 05-39-5357RJ Coag (PPP) [Time]Prothrombin time (PT) High9.0-12.9[facility] EastComment on above:A hematocrit value greater than 55% may lead to inaccurate results in coagulation testing. Patientshaving hematocrit values >55% require a special collection tube for coagulation studies. Please contact the laboratory at [phone] for redraw instructions.RBC Auto (Bld) [#/Vol]Ordered By: PROVIDER TEMP on 57-82-3612XKJ (Bld) [#/Vol]Erythrocytes [#/volume] in Blood by Automated count3.90-5.60 Memorial Hospitalerum or plasma anion gap determinationOrdered By: PROVIDER TEMP on 24-09-7596Zmgii gap [Moles/Vol]Serum or plasma anion gap determination6.0-15.0Memorial Hospitalodium [Moles/volume] in Serum or PlasmaOrdered By: PROVIDER TEMP on 11-55-3576Knulnq [Moles/Vol]Sodium [Moles/volume] in Serum or MjbeosZhf864-900EijmgovidRegency Hospital Cleveland East Troponin I High Sensitivityon 04-57-8025Mrbghuzh I High Tfezfebmeqi69.4 pg/mL High0.0-20.0The [facility] Physician GroupComment on above:Result Comment: PERFORMED BY: [facility] [address] [place] [address] PATHOLOGIST CLAY ROASTER ANDRE PERALTA M.D.Performed By: #### GLULS #### Point of Care testing ,Troponin I High Xfmdbvpsduj98.1 pg/mLHigh0.0-20.0[facility] Comment on above:Result Comment: PERFORMED BY: [address] [address] PATHOLOGIST CLAY ROASTER ANDRE PERALTA M.D.Performed By: #### PT, BMP, BNP, HS TROP, CK, CBC ####[facility] [place] [address] [facility] Troponin I.cardiac [Mass/volume] in Serum or Plasma by Detection limit <= 0.01 ng/Ordered By: Bertin Smith on 12-08-8553Bazmmthb I.cardiac DL <= 0.01 ng/mL [Mass/Vol]Troponin I.cardiac [Mass/volume] in Serum or Plasma by Detection limit <= 0.01 ng/High0.0-20.0[facility] EastUrea nitrogen [Mass/volume] in Serum or PlasmaOrdered By: PROVIDER TEMP on 38-17-0178Lgjj nitrogen [Mass/Vol]Urea nitrogen [Mass/volume] in Serum or Plasma7-[facility] EastWBC Auto (Bld) [#/Vol]Ordered By: PROVIDER TEMP on 54-15-0915TKT (Bld) [#/Vol]Leukocytes [#/volume] in Blood by Automated count 4.1-10.5FKettering Health – Soin Medical CenterX-ray reportOrdered By: Sergei Valentin on 91-58-1066Xxtzj reportKETTERING HEALTH MIAMISBURG Main [address] [address] XRay Report Signed Patient: Manolo Roche MR#: [id number] : 1935 Acct:[id number] Age/Sex: 89 / M ADM Date: 5 [...] Sergei Valentin M.D.07/16/2024 1:03 PM Dictation Location: [facility]--17 Transcribed By: [facility] 07/16/24 1303 Dictated By: Sergei Valentin II, MD 07/16/24 1302 Signed By: 07/16/24 1303 [facility] Work Phone: XR chest 2V*on 97-66-9983TQ chest 2V*[facility] [place] [place] [address] XRay Report Signed Patient: Manolo Roche MR#: [id number] : 1935 Acct:[id number] Age/Sex: 89 / M ADM Date: 07/16/24 [...] II, MD 07/16/24 1302 Signed By: 07/16/24 1303[facility] Physician GroupCNPNon 55-75-7493CZDYGwmuckpba (DEMBHT) MANOLO ROCHE ([id number]) 1935 M Date Time Provider Department 07/13/24 GAYE MATA During your visit today, we recorded the following information about you: Gaye Mata, KARIN 07/13/2024 4:14 PM Signed In error Allergies As of Date: 07/13/2024 (No Known Allergies) Date Reviewed: 07/06/2024 Reviewed by: Ayana Zavala APRN.SHIRT HEMMER - Fully Assessed Prescriptions as of 07/13/2024 [...] 5,) crtg Change every 72 hours. - pysfph-ckpygflb-zmlchub (CREON) 24,000-76,000 -120,000 unit cpDR Take 2 [...] *06/23/2018 Encounter Status:Closed by GAYE MATA on 07/13/24[facility] (ELIZABETHLeeann) MANOLO ROCHE ([id number]) 1935 M Date Time Provider Department 07/13/24 [...] training for 07/25/24 at 1-3 pm at [facility]. Location. Patient's Mychart status is PENDING, invite resent via text and to create account. Email sent to [email or web address] with clinic address, time, date, and what [...] Date Reviewed: 07/06/2024 Reviewed by: Ayana Zavala APRN.SHIRT HEMMER - Fully Assessed Reason for Visit: Omnipod [...] 5,) crtg Change every 72 hours. - pnztof-hxnboafb-iaubjfp (CREON) 24,000-76,000 -120,000 unit cpDR Take 2 [...] *06/23/2018 Encounter Status:Closed by GAYE MATA on 07/13/24[facility] 93-54-4543BEYRJrfpnj Visit (ENDOLN) FREDDYMANOLO OSBORN ([id number]) 1935 M Date Time Provider Department 07/06/24 [...] is DO Marie Rodriguez (Johny) [address] [address] History of Present Illness Manolo Roche is a 89 year old male presents today for evaluation of DM Type 1. Here with and son. 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 in [place]. Per patient, this was done due to [...] (PROBIOTIC-10 ORAL) Take by mouth once daily. ybvxnv-hpcjrjjj-xprwdbg (CREON) 24,000-76,000 -120,000 unit cpDR Take 2 capsules by mouth three times daily with meals. and 1 with snacks (8/day) Digestive Enzyme Mixtures lutein-zeaxanthin 25-5 mg cap Take by mouth once daily. Alternative Therapy - Antioxidant Omeprazole Magnesium 20 mg tablet Take 20 mg by mouth. Gastric Acid Secretion Hemmer Automatic - Proton Pump Inhibitors (PPIs) PARoxetine (PAXIL) 40 mg tablet Take 40 mg by mouth every morning. Antidepressant - Selective Serotonin Reuptake Inhibitors (SSRIs) tamsulosin (FLOMAX) 0.4 mg Take 0.4 mg by mouth. Prostatic Hypertrophy Agent - huhik-6-Vdoaxrzxsidr Antagonists Physical Activity: No formal program Diet: CHO Controlled Diet SMBG Frequency of Monitoring: Four times a Day Summary of Personal CGM Findings: Dates worn: 06/22/24-07/05/24 CGM Type: Dexcom 1- CGM recording is adequate for interpretation. Worn 93% of (more content not included)...NormalCleveland Clinic South Pointe Hospitalon 88-36-3830NWBHCgjnptyao (KALEY) MANOLO ROCHE ([id number]) 1935 M Date Time Provider Department 07/06/24 AYANA ZAVALA During your visit today, we recorded the following information about you: Ayana Zavala APRN.SHIRT HEMMER 07/06/2024 4:09 PM Signed Please update patient [...] training. I reached out to our lead refinery supervisor and am waiting to hear back, but hopefully can get him set up for training in the next two weeks. Sheryl Ny MA 07/07/2024 4:31 PM Signed Called patient. No answer. [facility] to call [phone] to retrieve below message from Ayana Mckinney APRN.KALANI 07/13/2024 8:33 AM Signed Please call back patient to see how he is doing since we made adjustments to his regimen. I did reach out to the [employer] guide dog trainer at [place] and she said she would be reaching out. I want to make sure this gets scheduled and that she was able to reach him. Buffy Arana MA 07/13/2024 4:06 PM Signed Called and spoke with patient He is doing well He stated that he just got scheduled with the guide dog trainer today will call the office [...] 5,) crtg Change every 72 hours. - dfshcj-briouzme-jlscwyn (CREON) 24,000-76,000 -120,000 unit cpDR Take 2 [...] *06/23/2018 Encounter Status:Closed by AYANA ZAVALA on 07/06/24NoSelect [facility] [place] ON DEMANDon 10-04-6739Codnctl by an unspecified provider. Mercy HospitalGLUCOSE, BLOOD (POC)on 86-25-5195Khgweru [Mass/Vol]76 mg/dL74 - 99 mg/dLOhiohealthComment on above:Location:[facility], [address] [place] [address], [address] The Accu-Chek Inform II glucose meter has [...] blood gas instrument) in the above situations. OhiohealthHEMOGLOBIN A1C (POC)on 38-53-6553SkC7o (Bld) [Mass fraction]10.1 %Abnormal4.3 - 5.6 %OhiohealthComment on above:Location:[facility], [address] [place] [address], [place], [place], [facility] Point of care (POC) Hemoglobin A1c (HGBA1C) [...] specific diabetes management situations: The POC device crab steamer provides a normal range of 4.2% to 6.5% for the HGBA1C POC test. However, the [place] [employer] guidelines indicate that patients with [...] Glucometer (BldC) [Mass/Vol]Ordered By: Sushant Cordon on 29-98-4487Skojqlr [Mass/Vol]Capillary blood glucose measurement by glucometer (mass/volume)[facility] MiamisburgComment on above: Random Glucose Reference Range is dependent on time and content of last meal. Glucose of more than 200 mg/dL in a nonstressed, ambulatory subject supports the diagnosis of Diabetes Mellitus.Glucose Poct Glucometerson 44-95-8167Amodzai4 NormalNch Healthcare System - Downtown Naples Physician GroupComment on above:Result Comment: Glu2: Will Repeat TestPerformed By: #### GLULS #### Point of Care testing ,Karon NOTIFY VadimPhysicians Regional Medical Center - Collier Boulevard Physician GroupComment on above: Performed By: #### GLULS #### Point of Care testing ,Cmsnjvd9Mqcypnw MeterOrlando Health South Lake Hospital Physician GroupComment on above:Result Comment: PERFORMED BY: [address] [place] [address] PATHOLOGIST CLAY ROASTER ANDRE PERALTA M.D.Performed By: #### GLULS #### Point of Care testing ,Glucose [Mass/Vol]572 mg/dLOff scale [facility] Physician GroupComment on above:Result Comment: Random Glucose Reference Range is dependent on time and content of last meal. Glucose of more than 200 mg/dL in a nonstressed, ambulatory subject supports the diagnosis of Diabetes Mellitus.Performed By: #### GLULS #### Point of Care testing ,Khmxtnq8YmivesTza [place] Physician GroupComment on above:Result Comment: Glu2: Will Repeat TestPerformed By: #### GLULS #### Point of Care testing ,Ahiwmhw7LMKW NOTIFY /DeepikaPhysicians Regional Medical Center - Collier Boulevard Physician GroupComment on above: Performed By: #### GLULS #### Point of Care testing ,Wkncfds3Zbesrre [facility] Physician GroupComment on above:Result Comment: PERFORMED BY: [address] [place] [address] PATHOLOGIST CLAY ROASTER ANDRE PERALTA M.D.Performed By: #### GLULS #### Point of Care testing ,Glucose [Mass/Vol]552 mg/dLOff scale [facility] Physician GroupComment on above:Result Comment: Random Glucose Reference Range is dependent on time and content of last meal. Glucose of more than 200 mg/dL in a nonstressed, ambulatory subject supports the diagnosis of Diabetes Mellitus.Performed By: #### GLULS #### Point of Care testing ,Glucose [Mass/Vol]375 mg/dLOrlando Health South Lake Hospital Physician GroupComment on above: Result Comment: Random Glucose Reference Range is dependent on time and content of last meal. Glucose of more than 200 mg/dL in a nonstressed, ambulatory subject supports the diagnosis of Diabetes Mellitus. PERFORMED BY: [address] [place] [address] PATHOLOGIST CLAY ROASTER ANDRE PERALTA M.D.Performed By: #### GLULS #### Point of Care testing ,Wxojozr0GrflxyFrs [place] Physician GroupComment on above:Result Comment: Glu2: Will Repeat Test PERFORMED BY: [address] [place] [address] PATHOLOGIST CLAY ROASTER ANDRE PERALTA M.D.Performed By: #### GLULS #### Point of Care testing ,Glucose [Mass/Vol]437 mg/dLOff scale [facility] Physician GroupComment on above:Result Comment: Random Glucose Reference Range is dependent on time and content of last meal. Glucose of more than 200 mg/dL in a nonstressed, ambulatory subject supports the diagnosis of Diabetes Mellitus.Performed By: #### GLULS #### Point of Care testing ,Glucose [Mass/Vol]210 mg/dLOrlando Health South Lake Hospital Physician GroupComment on above: Result Comment: Random Glucose Reference Range is dependent on time and content of last meal. Glucose of more than 200 mg/dL in a nonstressed, ambulatory subject supports the diagnosis of Diabetes Mellitus. PERFORMED BY: [address] [place] [id number] PATHOLOGIST CLAY ROASTER ANDRE PERALTA M.D.Performed By: #### GLULS #### Point of Care testing ,Glucose [Mass/Vol]332 mg/dLOrlando Health South Lake Hospital Physician GroupComment on above: Result Comment: Random Glucose Reference Range is dependent on time and content of last meal. Glucose of more than 200 mg/dL in a nonstressed, ambulatory subject supports the diagnosis of Diabetes Mellitus. PERFORMED BY: [place] [address] PATHOLOGIST CLAY ROASTER ANDRE PERALTA M.D.Performed By: #### GLULS #### Point of Care testing ,No Panel InformationOrdered By: Sushant Cordon on 71-47-7084Bayxnvx Glucose #2 CommentWill notify /BarryKettering Health – Soin Medical CenterBedside Glucose #3 CommentCleaned meterRegency Hospital Cleveland EastBedside Glucose CommentSee commentRegency Hospital Cleveland EastComment on above:Glu2: Will Repeat TestAerobic Cultureon 73-17-6285Gjsxbcy CultureComment deep wound culture of abdominal wound [...] RESISTANT TO ALL B-LACTAM DRUGS. PERFORMED BY: [address] [place] [address] PATHOLOGIST CLAY ROASTER ANDRE KeithThe [facility] Physician GroupComment on above: Performed By: #### GLULS #### Point of Care testing ,Anaerobic cultureOrdered By: Stephanie Sheridan on 21-46-1847Muhczpzo identified Anaer cx Nom (Unsp spec)Anaerobic cultureRegency Hospital Cleveland East Bacteria identified Aer cx Nom (Unsp spec)Ordered By: Stephanie Sheridan on 96-46-9601Mwyazir CultureAbnoalRegency Hospital Cleveland EastGroup B Strep (Streptococcus agalactiae)Group B Strep (Streptococcus agalactiae)Abnormal [facility] EastGlucose Poct Glucometerson 22-92-0196Qevzing [Mass/Vol]134 mg/dLNoMission Hospital McDowell Physician GroupComment on above:Result Comment: Random Glucose Reference Range is dependent on time and content of last meal. Glucose of more than 200 mg/dL in a nonstressed, ambulatory subject supports the diagnosis of Diabetes Mellitus. PERFORMED BY: [place] [address] PATHOLOGIST CLAY ROASTER ANDRE PERALTA M.D.Performed By: #### GLULS #### Point of Care testing ,Glucose [Mass/Vol]65 mg/dLNoMission Hospital McDowell Physician GroupComment on above: Result Comment: Random Glucose Reference Range is dependent on time and content of last meal. Glucose of more than 200 mg/dL in a nonstressed, ambulatory subject supports the diagnosis of Diabetes Mellitus. PERFORMED BY: [place] [address] PATHOLOGIST CLAY ROASTER ANDRE PERALTA M.D.Performed By: #### GLULS #### Point of Care testing ,Vmdyhnl1Cgt8: Cleaned MeterNoMission Hospital McDowell Physician GroupComment on above: Result Comment: PERFORMED BY: [place] [address] PATHOLOGIST CLAY ROASTER NADRE PERALTA M.D.Performed By: #### GLULS ####Point of Care testing, Glucose [Mass/Vol]140 mg/dLNoMission Hospital McDowell Physician GroupComment on above: Result Comment: Random Glucose Reference Range is dependent on time and content of last meal. Glucose of more than 200 mg/dL in a nonstressed, ambulatory subject supports the diagnosis of Diabetes Mellitus.Performed By: #### GLULS ####Point of Care testing,Commemt1 Glu2: Cleaned MeterNoMission Hospital McDowell Physician GroupComment on above:Result Comment: PERFORMED BY: [address] [place] [address] PATHOLOGIST CLAY ROASTER ANDRE PERALTA M.D.Performed By: #### GLULS ####Point of Care testing, Glucose [Mass/Vol]200 mg/dLNoMission Hospital McDowell Physician GroupComment on above: Result Comment: Random Glucose Reference Range is dependent on time and content of last meal. Glucose of more than 200 mg/dL in a nonstressed, ambulatory subject supports the diagnosis of Diabetes Mellitus.Performed By: #### GLULS ####Point of Care testing,Commemt1 NormalNch Healthcare System - Downtown Naples Physician GroupComment on above:Result Comment: Glu2: Will Repeat Test PERFORMED BY: [address] [place] [address] PATHOLOGIST CLAY ROASTER ANDRE PERALTA M.D.Performed By: #### GLULS #### Point of Care testing ,Glucose [Mass/Vol]425 mg/dLOff scale highNch Healthcare System - Downtown Naples Physician GroupComment on above:Result Comment: Random Glucose Reference Range is dependent on time and content of last meal. Glucose of more than 200 mg/dL in a nonstressed, ambulatory subject supports the diagnosis of Diabetes Mellitus.Performed By: #### GLULS #### Point of Care testing ,Gram stain microscopyOrdered By: Stephanie Sheridan on 42-25-3913Jzgwsurfryh observation Gram stain Nom (Unsp spec)Gram stain microscopyRegency Hospital Cleveland EastA1C with Estimated Average Gluon 96-81-1988Whihinl [Mass/Vol]255 mg/dLOrlando Health South Lake Hospital Physician GroupComment on above:Order Comment: ADD ON PER IFEANYI - PHLEBResult Comment: PERFORMED BY: [address] [place] [address] PATHOLOGIST CLAY ROASTER ANDRE PERALTA M.D.Performed By: #### GLULS #### Point of Care testing ,HbA1c (Bld) [Mass fraction]10.5 %High4.3-5.6[facility] Physician Group Comment on above:Order Comment: ADD ON PER IFEANYI - PHLEBResult Comment: Increased risk for diabetes: 5.7 - 6.4 diabetes: >6.4 glycemic control for adults with diabetes: <7.0Performed By: #### GLULS #### Point of Care testing ,Acanthocytes [Presence] in Blood by Light microscopyOrdered By: Sushant Cordon on 60-41-5397Abfwphozuiqq LM Ql (Bld)Acanthocytes [Presence] in Blood by Light microscopyRegency Hospital Cleveland EastAnisocytosis LM Ql (Bld) Ordered By: Sushant Cordon on 20-61-3919Yfmapummzyaw Ql (Bld)Anisocytosis [Presence] in Blood by Light microscopyRegency Hospital Cleveland EastBasic Metabolic Panelon 04-18-2323Eemht gap [Moles/Vol]10.4 mmol/LNormal6.0-15.0The [facility] Physician GroupComment on above:Performed By: #### GLULS #### Point of Care testing ,Calcium [Mass/Vol]9.0 mg/dLNormal8.6-10.3The [facility] Physician GroupComment on above:Result Comment: PERFORMED BY: [facility] [address] PATHOLOGIST CLAY ROASTER ANDRE PERALTA M.D.Performed By: #### GLULS #### Point of Care testing ,Chloride [Moles/Vol]103 mmol/LHpkdkm87-679Cpw [facility] Physician GroupComment on above:Performed By: #### GLULS #### Point of Care testing ,CO2 [Moles/Vol]28.0 mmol/LUxaozy83.0-31.0The [facility] Physician GroupComment on above:Performed By: #### GLULS #### Point of Care testing ,Creatinine [Mass/Vol]0.96 mg/dLNormal0.70-1.30The [facility]ician Group Comment on above:Performed By: #### GLULS #### Point of Care testing ,GFR/1.73 sq M.predicted MDRD (S/P/Bld) [Vol rate/Area]mL/min/{1.73_m2}NormalThe [facility] Physician GroupComment on above:Performed By: #### GLULS #### Point of Care testing ,Glucose [Mass/Vol]90 mg/zZZqkwbj77-600Xoo [facility] Physician [facility] CenterComment on above:Result Comment: Random Glucose Reference Range is dependent on time and content of last meal. Glucose of more than 200 mg/dL in a nonstressed, ambulatory subject supports the diagnosis of Diabetes Mellitus. ADA recommended reference rangePerformed By: #### GLULS #### Point of Care testing ,Potassium [Moles/Vol]4.4 mmol/LNormal3.5-5.1The [facility] Physician [facility] Comment on above:Performed By: #### GLULS #### Point of Care testing ,Sodium [Moles/Vol]137 mmol/KAlllvq927-163Khb [facility] Physician [facility] CenterComment on above:Performed By: #### GLULS #### Point of Care testing ,Urea nitrogen [Mass/Vol]22 mg/dLNormal7-25The [facility] Physician GroupComment on above:Performed By: #### GLULS #### Point of Care testing ,Basophils Auto (Bld) [#/Vol]Ordered By: Sushant Cordon on 06-19-2024 Basophils (Bld) [#/Vol]Automated basophil count0.0-0.2FKettering Health – Soin Medical CenterBasophils/100 WBC Auto (Bld)Ordered By: Sushant Cordon on 90-49-8230Eptmkuutk/100 WBC (Bld)Automated basophil %.[facility] EastBlood estimated average glucose determination by estimation from glycated hemoglobinOrdered By: Sushant Cordon on 12-86-0561Orebcut glucose Estimated from glycated hemoglobin (Bld) [Mass/Vol]Glucose mean value [Mass/volume] in Blood Estimated from glycated hemoglobinRegency Hospital Cleveland EastBurr cells [Presence] in Blood by Light microscopyOrdered By: Sushant Cordon on 74-77-2242Bxtd cells LM Ql (Bld)[place] cells [Presence] in Blood by Light microscopyRegency Hospital Cleveland EastCalcium [Mass/volume] in Serum or PlasmaOrdered By: Sushant Cordon on 00-79-9477Rtzhsjt [Mass/Vol]Calcium [Mass/volume] in Serum or Plasma8.6-10.3FKettering Health – Soin Medical CenterCarbon dioxide, total [Moles/volume] in Serum or PlasmaOrdered By: Sushant Cordon on 22-63-2752BU5 [Moles/Vol]Carbon dioxide, total [Moles/volume] in Serum or Jbefts96.0-31.0[facility] Chloride [Moles/volume] in Serum or PlasmaOrdered By: Sushant Cordon on 66-96-9448Jbqpfjxh [Moles/Vol]Chloride [Moles/volume] in Serum or Loouls98-102 [facility] EastCreatinine [Mass/volume] in Serum or Plasma Ordered By: Sushant Cordon on 47-71-5595Vcaedgjurc [Mass/Vol]Creatinine [Mass/volume] in Serum or Plasma0.70-1.30[facility] Eosinophils Auto (Bld) [#/Vol]Ordered By: Sushant Cordon on 06-19-2024 Eosinophils (Bld) [#/Vol]Automated eosinophil count0.0-0.45[facility] EastEosinophils/100 WBC Auto (Bld)Ordered By: Sushant Cordon on 85-47-2070Sniqwtriqbl/100 WBC (Bld)Automated eosinophil %.[facility] Hospital Cleveland EastErythrocyte distribution width Auto (RBC) [Ratio]Ordered By: Sushant Cordon on 38-35-1867Nhvberzkkuo distribution width (RBC) [Ratio] Erythrocyte distribution width [Ratio] by Automated dvrdmPzab00.0-14.8[facility] Cleveland EastErythrocyte morphology finding [Identifier] in Blood Ordered By: Sushant Cordon on 53-12-5886SOE morphology finding Nom (Bld) RBC morphologyRegency Hospital Cleveland EastGlucose Poct Glucometerson 90-86-7750Ycwbjzy [Mass/Vol]101 mg/dLNoMission Hospital McDowell Physician GroupComment on above:Result Comment: Random Glucose Reference Range is dependent on time and content of last meal. Glucose of more than 200 mg/dL in a nonstressed, ambulatory subject supports the diagnosis of Diabetes Mellitus. PERFORMED BY: [facility] [place] [address] PATHOLOGIST CLAY ROASTER ANDRE PERALTA M.D.Performed By: #### GLULS #### Point of Care testing ,Glucose [Mass/volume] in Serum or PlasmaOrdered By: Sushant Cordon on 16-49-7809Arpmtkg [Mass/Vol]Glucose [Mass/volume] in Serum or Ldmacm63-938 [facility] EastComment on above:ADA recommended reference rangeRandom Glucose Reference Range is dependent on time and content of last meal. Glucose of more than 200 mg/dL in a nonstressed, ambulatory subject supports the diagnosisof Diabetes Mellitus.Hematocrit Auto (Bld) [Volume fraction]Ordered By: Sushant Cordon on 31-82-6274Hvnksguatk (Bld) [Volume fraction]Hematocrit [Volume Fraction] of Blood by Automated vyjtqNay18.8-50.0 [facility] EastHemoglobin A1c/Hemoglobin.total in BloodOrdered By: Sushant Cordon on 17-77-4971OzS5g (Bld) [Mass fraction]Hemoglobin A1c percentageHigh4.3-5.6FKettering Health – Soin Medical CenterComment on above:Increased risk for diabetes: 5.7 - 6.4diabetes: >6.4glycemic control for adults with diabetes: <7.0Hemoglobin [Mass/volume] in BloodOrdered By: Sushant Cordon on 96-89-3966Rqabjixfzk (Bld) [Mass/Vol]Hemoglobin [Mass/volume] in KznwmSyh41.0-17.0[facility] EastHypochromia LM Ql (Bld)Ordered By: Sushant Cordon on 71-76-3825Kbzzfmeveex Ql (Bld)Hypochromia [Presence] in Blood by Light microscopyRegency Hospital Cleveland EastINR in Platelet poor plasma by Coagulation assayOrdered By: Sushant Cordon on 79-00-0564GYY Coag (PPP) [Relative time]INR in Platelet poor plasma by Coagulation assayRegency Hospital Cleveland EastComment on above:INR Therapeutic Range A) Pre- and [...] by Automated counOrdered By: Sushant Cordon on 19-04-0201ZIZ corrected for nucl RBC Auto (Bld) [#/Vol]Leukocytes [#/volume] corrected for nucleated erythrocytes in Blood by Automated coun4.1-10.5FKettering Health – Soin Medical CenterLymphocytes Auto (Bld) [#/Vol]Ordered By: Sushant Cordon on 41-40-9634Rkiesszomkj (Bld) [#/Vol]Lymphocytes [#/volume] in Blood by Automated count1.00-4.8[facility] EastLymphocytes/100 WBC Auto (Bld)Ordered By: Sushant Cordon on 47-05-7472Cutvfbardjg/100 WBC (Bld)Lymphocytes/100 leukocytes in Blood by Automated count.[facility], Cancer CenterH Auto (RBC) [Entitic mass]Ordered By: Sushant Cordon on 45-55-3205DWA (RBC) [Entitic mass]MCH [Entitic mass] by Automated bqfllCei67.5-35.2FKet[facility] Soin Medical CenterMCHC Auto (RBC) [Mass/Vol]Ordered By: Sushant Cordon on 06-19-2024 MCHC (RBC) [Mass/Vol]MCHC [Mass/volume] by Automated count32.5-35.6FMagruder HospitalV Auto (RBC) [Entitic vol]Ordered By: Sushant Cordon on 29-39-4189FWR (RBC) [Entitic vol]MCV [Entitic volume] by Automated vbicmEpr12.5-101Reg[facility] Hospital [facility] EastMacrocytes LM Ql (Bld)Ordered By: Sushant Cordon on 47-72-8052Fcpbcflyty Ql (Bld)Macrocytes [Presence] in Blood by Light microscopyRegency Hospital Cleveland EastMicrocytes LM Ql (Bld)Ordered By: Sushant Cordon on 12-61-8057Jbrrsraivd Ql (Bld)Microcytes [Presence] in Blood by Light microscopyRegency Hospital Cleveland East Monocytes Auto (Bld) [#/Vol]Ordered By: Sushant Cordon on 06-19-2024 Monocytes (Bld) [#/Vol]Automated blood monocyte count0.0-0.8[facility] EastMonocytes/100 WBC Auto (Bld)Ordered By: Sushant Cordon on 94-78-5902Dbynnxapp/100 WBC (Bld)Automated monocyte %.[facility] EastNeutrophils Auto (Bld) [#/Vol]Ordered By: Sushant Cordon on 22-72-0014Wjnwphpwjmy (Bld) [#/Vol]Neutrophils [#/volume] in Blood by Automated count1.8-7.7FKettering Health – Soin Medical CenterNeutrophils/100 WBC Auto (Bld) Ordered By: Sushant Cordon on 13-26-6915Qszmigjzypa/100 WBC (Bld)Automated neutrophil %.[facility] EastNo Panel InformationOrdered By: Sushant Cordon on 18-77-6925Gvazcmdsg GFR (CKD-EPI)> 60.0 mL/MinRegency Hospital Cleveland EastPharmacy Creatinine Clearance (ChemN/AFKettering Health – Soin Medical CenterNucleated erythrocytes [Presence] in Blood by Automated count Ordered By: Sushant Cordon on 23-04-8407Fkfgrbktr RBC Auto Ql (Bld) Nucleated erythrocytes [Presence] in Blood by Automated count0-0.5FKettering Health – Soin Medical CenterOvalocytes [Presence] in Blood by Light microscopyOrdered By: Sushant Cordon on 16-90-0501Htnukehnyy LM Ql (Bld)Ovalocyte detection [facility] EastPartial Thromboplastin Timeon 03-36-6182gWFN Coag (Bld) [Time]29.4 oYhabxc21.1-36.5The [facility] Physician GroupComment on above:Result Comment: A hematocrit value greater than 55% may lead to inaccurate results in coagulation testing. Patients having hematocrit values >55% require a special collection tube for coagulation studies. Please contact the laboratory at [phone] for redraw instructions. PERFORMED BY: [facility] [address] [place] [address] PATHOLOGIST [employer]LAY ROASTER ANDRE PERALTA M.D.Performed By: #### GLULS #### Point of Care testing ,Platelet adequacy [Presence] in Blood by Light microscopyOrdered By: Sushant Cordon on 30-50-2308Regqbjjec LM Ql (Bld)Platelet adequacy [Presence] in Blood by Light microscopyNorwalk Memorial HospitalPlatelet mean volume Auto (Bld) [Entitic vol]Ordered By: Sushant Cordon on 06-19-2024 Platelet mean volume (Bld) [Entitic vol]Platelet mean volume [Entitic volume] in Blood by Automated count6.6-10.1FKettering Health – Soin Medical CenterPlatelet morphology finding [Identifier] in BloodOrdered By: Sushant Cordon on 89-44-6162Obxbnrli morphology finding Nom (Bld)Platelet morphology finding [Identifier] in BloodNoGreen Cross HospitalPlatelets Auto (Bld) [#/Vol]Ordered By: Sushant Cordon on 93-84-0513Avbldiagp (Bld) [#/Vol] Platelets [#/volume] in Blood by Automated -574OuyzecsylRegency Hospital Cleveland EastPoikilocytosis [Presence] in Blood by Light microscopyOrdered By: Sushant Cordon on 88-82-4803Zeehhqtccaprjw LM Ql (Bld)Poikilocytosis [Presence] in Blood by Light microscopyRegency Hospital Cleveland East Potassium [Moles/volume] in Serum or PlasmaOrdered By: Sushant Cordon on 34-35-6413Bkwzqyuii [Moles/Vol]Potassium [Moles/volume] in Serum or Plasma 3.5-5.1FKettering [facility] – Soin Medical CenterProthrombin Time INRon 39-15-9983VXH Coag (PPP) [Relative time]1.1 {INR}NormalThe [facility] Physician GroupComment on above:Result Comment: INR [...] Care testing ,PT Coag (PPP) [Time]12.9 sNormal9.0-12.9The [facility] Physician GroupComment on above:Result Comment: A hematocrit value greater than 55% may lead to inaccurate results in coagulation testing. Patients having hematocrit values >55% require a special collection tube for coagulation studies. Please contact the laboratory at [phone] for redraw instructions.Performed By: #### GLULS #### Point of Care testing ,Prothrombin time (PT)Ordered By: Sushant Cordon on 50-78-5878BT Coag (PPP) [Time]Prothrombin time (PT)9.0-12.9[facility] Comment on above:A hematocrit value greater than 55% may lead to inaccurate results in coagulation testing. Patientshaving hematocrit values >55% require a special collection tube for coagulation studies. Please contact the laboratory at [phone] for redraw instructions.RBC Auto (Bld) [#/Vol]Ordered By: Sushant Cordon on 51-00-8367HGS (Bld) [#/Vol]Erythrocytes [#/volume] in Blood by Automated count3.90-5.60Memorial Hospitalcan and CBCon 11-18-7583OuogjpvttxgwAronsnweZeopofCup Firelands Physician GroupComment on above:Performed By: #### GLULS #### Point of Care testing ,Anisocytosis Ql (Bld)ModerateNoFairfield Medical CenterComment on above:Performed By: #### GLULS #### Point of Care testing ,Basophils (Bld) [#/Vol]0.1 10*3/uLNormal0.0-0.2The [facility] Comment on above:Result Comment: PERFORMED BY: [facility] [place] [address] PATHOLOGIST [employer] RO[employer] ANDRE PERALTA M.D.Performed By: #### GLULS #### Point of Care testing ,Basophils/100 WBC (Bld)1.8 %Normal.The [facility] Physician GroupComment on above:Performed By: #### GLULS #### Point of Care testing ,Crenated RBCSlightNoMission Hospital McDowell Physician GroupComment on above:Performed By: #### GLULS #### Point of Care testing ,Eosinophils (Bld) [#/Vol]0.1 10*3/uLNormal0.0-0.45The [facility] Physician [facility] Comment on above:Performed By: #### GLULS #### Point of Care testing ,Eosinophils/100 WBC (Bld)1.3 %Normal.The [facility] Physician GroupComment on above:Performed By: #### GLULS #### Point of Care testing ,Erythrocyte distribution width (RBC) [Ratio]20.5 %High12.0-14.8The [facility] Physician GroupComment on above:Performed By: #### GLULS #### Point of Care testing ,Hematocrit (Bld) [Volume fraction]34.1 %Low38.8-50.0The [facility] Physician GroupComment on above:Performed By: #### GLULS #### Point of Care testing ,Hemoglobin (Bld) [Mass/Vol]11.3 g/dLLow13.0-17.0The [facility] Comment on above:Performed By: #### GLULS #### Point of Care testing ,HypochromasiaModerateOrlando Health South Lake Hospital Physician GroupComment on above: Performed By: #### GLULS #### Point of Care testing ,Lymphocytes (Bld) [#/Vol]3.5 10*3/uLNormal1.00-4.8The [facility] Comment on above:Performed By: #### GLULS #### Point of Care testing ,Lymphocytes/100 WBC (Bld)44.3 %Normal.The [facility] Physician GroupComment on above:Performed By: #### GLULS #### Point of Care testing ,MacrocytosisSUNC Health Pardee Physician GroupComment on above:Performed By: #### GLULS #### Point of Care testing ,MCH (RBC) [Entitic mass]25.5 pgLow27.5-35.2The [facility] Physician GroupComment on above:Performed By: #### GLULS #### Point of Care testing ,MCV (RBC) [Entitic vol]76.9 fLLow83.5-101The [facility] Physician GroupComment on above:Performed By: #### GLULS #### Point of Care testing ,Mean Corpuscular HGB Conc33.2 g/xXOedojy81.5-35.6The [facility] Physician [facility] Comment on above:Performed By: #### GLULS #### Point of Care testing ,MicrocytosisSUNC Health Pardee Physician GroupComment on above:Performed By: #### GLULS #### Point of Care testing ,Monocytes (Bld) [#/Vol]0.6 10*3/uLNormal0.0-0.8The [facility] Physician [facility] Comment on above:Performed By: #### GLULS #### Point of Care testing ,Monocytes/100 WBC (Bld)7.0 %Normal.The [facility] Physician GroupComment on above:Performed By: #### GLULS #### Point of Care testing ,Neutrophils (Bld) [#/Vol]3.6 10*3/uLNormal1.8-7.7The [facility] Physician [facility] Comment on above:Performed By: #### GLULS #### Point of Care testing ,Neutrophils/100 WBC (Bld)45.6 %Normal.The [facility] Physician GroupComment on above:Performed By: #### GLULS #### Point of Care testing ,NRBC%0.1 /100{WBC}Normal0-0.5The [facility] Physician GroupComment on above: Performed By: #### GLULS #### Point of Care testing ,OvalocytesSlightNoMission Hospital McDowell Physician GroupComment on above:Performed By: #### GLULS #### Point of Care testing ,Platelet EstimateNormalNormalNormPhysicians Regional Medical Center - Collier Boulevard Physician GroupComment on above:Performed By: #### GLULS #### Point of Care testing ,Platelet mean volume (Bld) [Entitic vol]9.8 fLNormal6.6-10.1The [facility] Physician GroupComment on above:Performed By: #### GLULS #### Point of Care testing ,Platelet MorphologyNormalNormalNoMission Hospital McDowell Physician GroupComment on above:Result Comment: PERFORMED BY: [facility] [place] [address] PATHOLOGIST [employer] RO[employer] ANDRE PERALTA M.D.Performed By: #### GLULS #### Point of Care testing ,Platelets (Bld) [#/Vol]243 10*3/yTGoervx646-358Bii [facility] Comment on above:Performed By: #### GLULS #### Point of Care testing ,PoikilocytosisModerateNoMission Hospital McDowell Physician GroupComment on above: Performed By: #### GLULS #### Point of Care testing ,RBC (Bld) [#/Vol]4.43 10*6/uLNormal3.90-5.60The [facility] Physician [facility] Comment on above:Performed By: #### GLULS #### Point of Care testing ,SchistocytesSlightOrlando Health South Lake Hospital Physician GroupComment on above:Performed By: #### GLULS #### Point of Care testing ,Target CellsSlightOrlando Health South Lake Hospital Physician GroupComment on above:Performed By: #### GLULS #### Point of Care testing ,WBC (Bld) [#/Vol]7.9 10*3/uLNormal4.1-10.5The [facility] Physician GroupComment on above:Performed By: #### GLULS #### Point of Care testing ,Schistocytes [Presence] in Blood by Light microscopyOrdered By: Sushant Cordon on 79-42-1775Mkheqlhgadmn LM Ql (Bld)Schistocytes [Presence] in Blood by Light microscopyMemorial Hospitalerum or plasma anion gap determinationOrdered By: Sushant Cordon on 84-65-7646Tybkn gap [Moles/Vol] Serum or plasma anion gap determination6.0-15.0[facility] Sodium [Moles/volume] in Serum or PlasmaOrdered By: Sushant Cordon on 81-88-2058Pqakud [Moles/Vol]Sodium [Moles/volume] in Serum or Dmfbdw918-726 [facility] EastTarget cells [Presence] in Blood by Light microscopyOrdered By: Sushant Cordon on 84-47-1877Qxmsek cells LM Ql (Bld) Target cellsRegency Hospital Cleveland EastUrea nitrogen [Mass/volume] in Serum or PlasmaOrdered By: Sushant Cordon on 87-51-9773Zczs nitrogen [Mass/Vol]Urea nitrogen [Mass/volume] in Serum or Plasma7-25[facility] EastWBC Auto (Bld) [#/Vol]Ordered By: Sushant Cordon on 58-07-3862IGS (Bld) [#/Vol]Leukocytes [#/volume] in Blood by Automated count 4.1-10.5FKettering Health – Soin Medical CenteraPTT in Platelet poor plasma by Coagulation assayOrdered By: Sushant Cordon on 44-81-7260uWWA Coag (PPP) [Time]Activated partial thromboplastin time (aPTT) in platelet poor plasma by coagulation a25.1-36.5FKettering Health – Soin Medical CenterComment on above:A hematocrit value greater than 55% may lead to inaccurate results in coagulation testing. Patientshaving hematocrit values >55% require a special collection tube for coagulation studies. Please contact the laboratory at [phone] for redraw instructions.Acanthocytes [Presence] in Blood by Light microscopyOrdered By: Jose Alfredo Brantley on 38-23-3857Tmdmryrahjxm LM Ql (Bld)Acanthocytes [Presence] in Blood by Light microscopyRegency Hospital Cleveland EastAlanine aminotransferase [Enzymatic activity/volume] in Serum or PlasmaOrdered By: Jose Alfredo Brantley on 36-42-2402SMW [Catalytic activity/Vol]Alanine aminotransferase [Enzymatic activity/volume] in Serum or Plasma7-52[facility] EastAlbumin [Mass/volume] in Serum or Plasma by Bromocresol green (BCG) dye binding methoOrdered By: Jose Alfredo Brantley on 96-63-1556Qdtuato BCG dye [Mass/Vol] Albumin [Mass/volume] in Serum or Plasma by Bromocresol green (BCG) dye binding methoLow3.5-5.7FKettering Health – Soin Medical CenterAlkaline phosphatase [Enzymatic activity/volume] in Serum or PlasmaOrdered By: Jose Alfredo Brantley on 41-14-1745ZXO [Catalytic activity/Vol]Alkaline phosphatase [Enzymatic activity/volume] in Serum or WmswgpElyn67-405GsfffdqvqRegency Hospital Cleveland EastAnisocytosis LM Ql (Bld)Ordered By: Jose Alfredo Brantley on 73-44-7133Nhapknvbjfzk Ql (Bld)Anisocytosis [Presence] in Blood by Light microscopyRegency Hospital Cleveland East Aspartate aminotransferase [Enzymatic activity/volume] in Serum or PlasmaOrdered By: Jose Alfredo Brantley on 26-60-9372TZH [Catalytic activity/Vol]Aspartate aminotransferase [Enzymatic activity/volume] in Serum or Jvgtii23-71GoypgpisyRegency Hospital Cleveland EastBasophils Auto (Bld) [#/Vol]Ordered By: Jose Alfredo Brantley on 81-18-9623Bfujgpham (Bld) [#/Vol]Automated basophil countRegency Hospital Cleveland EastBasophils/100 WBC Auto (Bld)Ordered By: Jose Alfredo Brantley on 06-18-2024 Basophils/100 WBC (Bld)Automated basophil %[facility] Bilirubin.total [Mass/volume] in Serum or PlasmaOrdered By: Jose Alfredo Brantley on 00-11-2894Blcapbvqa [Mass/Vol]Bilirubin.total [Mass/volume] in Serum or Plasma 0.3-1.0[facility] EastBurr cells [Presence] in Blood by Light microscopyOrdered By: Jose Alfredo Brantley on 37-88-9918Ikls cells LM Ql (Bld)[place] cells [Presence] in Blood by Light microscopyRegency Hospital Cleveland EastCalcium [Mass/volume] in Serum or PlasmaOrdered By: Jose Alfredo Brantley on 90-75-5391Rknxoal [Mass/Vol]Calcium [Mass/volume] in Serum or Plasma8.6-10.3FKettering Health – Soin Medical CenterCarbon dioxide, total [Moles/volume] in Serum or PlasmaOrdered By: Jose Alfredo Brantley on 55-95-7575VT3 [Moles/Vol]Carbon dioxide, total [Moles/volume] in Serum or Yrjafm50.0-31.0[facility] EastChloride [Moles/volume] in Serum or PlasmaOrdered By: Jose Alfredo Brantley on 05-43-3220Tuonnxfv [Moles/Vol]Chloride [Moles/volume] in Serum or Dayxea43-856LuxyjegooRegency Hospital Cleveland EastComprehensive Metabolic Panelon 03-33-8575Rbfnsxb [Mass/Vol]3.4 g/dLLow3.5-5.7The [facility] Physician GroupComment on above:Performed By: #### DIFF CBC, CMP ####[place] [address] USAAlbumin/Globulin [Mass ratio]1.1 {ratio}NormalThe [facility] Physician [facility] CenterComment on above:Performed By: #### DIFF CBC, CMP ####[place] [id number] USAALP [Catalytic activity/Vol] 109 U/WCyqt86-227Cge [facility] Physician GroupComment on above:Performed By: #### DIFF CBC, CMP ####[place] [id number] USAALT [Catalytic activity/Vol]14 U/LNormal7-52The [facility] Hospital GroupComment on above:Performed By: #### DIFF CBC, CMP ####[place] [id number] USAAnion gap [Moles/Vol]11.4 mmol/LNormal6.0-15.0The [facility] Physician GroupComment on above:Performed By: #### DIFF CBC, CMP ####[place] [id number] USAAST [Catalytic activity/Vol]21 U/RYffcdq90-31Plr [facility] Physician [facility] CenterComment on above:Performed By: #### DIFF CBC, CMP ####[place] [address] USABilirubin [Mass/Vol]0.4 mg/dL Normal0.3-1.0The [facility] Physician [facility] CenterComment on above:Performed By: #### DIFF CBC, CMP ####[place] [address] USACalcium [Mass/Vol]8.7 mg/dLNormal8.6-10.3The [facility] Comment on above:Performed By: #### DIFF CBC, CMP ####[place] [address] USAChloride [Moles/Vol]102 mmol/LNormal 98-107The [facility] Physician [facility] CenterComment on above:Performed By: #### DIFF CBC, CMP ####[place] [address] [place] CO2 [Moles/Vol]27.6 mmol/EBclitl47.0-31.0The [facility] Physician GroupComment on above:Performed By: #### DIFF CBC, CMP ####[place] [address] USACreatinine [Mass/Vol]0.96 mg/dLNormal0.70-1.30 The [facility] Physician GroupComment on above:Performed By: #### DIFF CBC, CMP ####[place] [address] [place] Creatinine Clr Calc Vkyqzowl78.22NormalThe [facility] Physician [facility] CenterComment on above:Result Comment: PERFORMED BY: [facility] [address] [place] [id number] PATHOLOGIST CLAY ROASTER ANDRE PERALTA M.D.Performed By: #### DIFF CBC, CMP ####[place] [address] USAGFR/1.73 sq M.predicted MDRD (S/P/Bld) [Vol rate/Area]mL/min/{1.73_m2}NormalThe [facility] Physician GroupComment on above:Performed By: #### DIFF CBC, CMP ####[place] [id number] USAGlobulin (S) [Mass/Vol]3.0 g/dLNormalThe [facility] Physician GroupComment on above:Performed By: #### DIFF CBC, CMP ####[place] [address] USAGlucose [Mass/Vol]85 mg/xXEkhsif94-668Zch [facility] Physician GroupComment on above:Result Comment: Random Glucose Reference Range is dependent on time and content of last meal. Glucose of more than 200 mg/dL in a nonstressed, ambulatory subject supports the diagnosis of Diabetes Mellitus. ADA recommended reference rangePerformed By: #### DIFF CBC, CMP ####[place] [id number] USAPotassium [Moles/Vol] 4.0 mmol/LNormal3.5-5.1The [facility] Physician GroupComment on above:Performed By: #### DIFF CBC, CMP ####[place] [id number] USAProtein [Mass/Vol]6.4 g/dLNormal6.4-8.9The [facility] Physician GroupComment on above:Performed By: #### DIFF CBC, CMP ####[place] [address] USASodium [Moles/Vol]137 mmol/APgohdp890-461Vby [facility] Physician GroupComment on above:Performed By: #### DIFF CBC, CMP ####[place] [id number] USAUrea nitrogen [Mass/Vol]21 mg/dLNormal7-25The [facility] Physician GroupComment on above:Performed By: #### DIFF CBC, CMP ####[place] [id number] USACreatinine [Mass/volume] in Serum or PlasmaOrdered By: Jose Alfredo Brantley on 33-19-7747Dhgnznbjpw [Mass/Vol] Creatinine [Mass/volume] in Serum or Plasma0.70-1.30[facility] EastDiff and CBCon 07-28-5287ZbkpnqjfuodsItdjzmNpgbiyTio Firelands Physician GroupComment on above:Performed By: #### DIFF CBC, CMP ####[address] [address] USAAnisocytosis Ql (Bld)Marked NormalThe [facility] Physician GroupComment on above:Performed By: #### DIFF CBC, CMP ####[address] [address] [place] Crenated RBCModerateNoMission Hospital McDowell Physician GroupComment on above: Performed By: #### DIFF CBC, CMP ####[address] [address] USAEosinophils/100 WBC (Bld)4 %High1-3The [facility] Physician GroupComment on above:Performed By: #### DIFF CBC, CMP ####[address] [address] USAErythrocyte distribution width (RBC) [Ratio]20.2 %High12.0-14.8The [facility] Comment on above:Performed By: #### DIFF CBC, CMP ####[address] [address] USAHematocrit (Bld) [Volume fraction] 35.5 %Low38.8-50.0The [facility] Physician GroupComment on above:Performed By: #### DIFF CBC, CMP ####[address] [address] USAHemoglobin (Bld) [Mass/Vol]11.8 g/dLLow13.0-17.0The [facility] Physician GroupComment on above:Performed By: #### DIFF CBC, CMP ####[address] [address] USAHypochromasiaSlight NormalNch Healthcare System - Downtown Naples Physician [facility] CenterComment on above:Performed By: #### DIFF CBC, CMP ####[address] [place] [address] [place] Large PlateletsSUNC Health Pardee Physician GroupComment on above:Result Comment: PERFORMED BY: [facility] [address] [place] [id number] PATHOLOGIST CLAY ROASTER ANDRE PERALTA M.D.Performed By: #### DIFF CBC, CMP ####[place] [id number] USALymphocytes/100 WBC (Bld)15 %Cig15-40Cum [facility] Physician GroupComment on above:Performed By: #### DIFF CBC, CMP ####[place] [id number] USAMacrocytosisSUNC Health Pardee Physician GroupComment on above:Performed By: #### DIFF CBC, CMP ####[address] Hughes StreetH (RBC) [Entitic mass]25.6 pgLow27.5-35.2The [facility] Physician GroupComment on above:Performed By: #### DIFF CBC, CMP ####[place] [id number] [facility] CITYV (RBC) [Entitic vol]76.7 fLLow83.5-101The [facility] Physician GroupComment on above:Performed By: #### DIFF CBC, CMP ####[place] [address] USAMean Corpuscular HGB Conc33.3 g/dLNormal 32.5-35.6The [facility] Physician GroupComment on above:Performed By: #### DIFF CBC, CMP ####[place] [id number] USAMicrocytosisSUNC Health Pardee Physician GroupComment on above: Performed By: #### DIFF CBC, CMP ####[place] [id number] USAMonocytes/100 WBC (Bld)12 %High2-11The [facility] Physician GroupComment on above:Performed By: #### DIFF CBC, CMP ####[address] [address] USAPlatelet Estimate NormalNormalNormPhysicians Regional Medical Center - Collier Boulevard Physician GroupComment on above:Performed By: #### DIFF CBC, CMP ####[address] [address] USAPlatelet mean volume (Bld) [Entitic vol]10.1 fLNormal6.6-10.1The [facility] Physician GroupComment on above:Performed By: #### DIFF CBC, CMP ####[address] [address] [place] Platelets (Bld) [#/Vol]239 10*3/dNMyivfu452-251Fbc [facility] Comment on above:Performed By: #### DIFF CBC, CMP ####[address] [address] USAPoikilocytosisMarkedOrlando Health South Lake Hospital Physician GroupComment on above:Performed By: #### DIFF CBC, CMP ####[address] [address] [place] PolychromasiaSlightNoMission Hospital McDowell Physician GroupComment on above:Performed By: #### DIFF CBC, CMP ####[address] [address] USARBC (Bld) [#/Vol]4.63 10*6/uLNormal3.90-5.60The [facility] Moore [facility] Physician GroupComment on above:Performed By: #### DIFF CBC, CMP ####[address] [address] [place] SchistocytesModerateOrlando Health South Lake Hospital Physician GroupComment on above: Performed By: #### DIFF CBC, CMP ####[address] [address] USASegmented neutrophils/100 WBC (Bld)69 %Hfzorx57-78 [facility] Physician GroupComment on above:Performed By: #### DIFF CBC, CMP ####[address] [address] USATarget CellsModerateNormalThe [facility] Physician GroupComment on above:Performed By: #### DIFF CBC, CMP ####[facility] [id number] [place] [address] USAWBC (Bld) [#/Vol]7.3 10*3/uLNormal4.1-10.5The [facility] Physician GroupComment on above:Performed By: #### DIFF CBC, CMP ####[facility] [id number] [place] [address] USAEosinophils Auto (Bld) [#/Vol] Ordered By: Jose Alfredo Brantley on 46-77-8931Ahsbmysqrpj (Bld) [#/Vol]Automated eosinophil countRegency Hospital Cleveland EastEosinophils/100 WBC Auto (Bld) Ordered By: Jose Alfredo Brantley on 47-79-4091Lqopsnwolad/100 WBC (Bld)Automated eosinophil %[facility] EastEosinophils/100 WBC Manual cnt (Bld)Ordered By: Jose Alfredo Brantley on 99-12-2174Shsyepuatvv/100 WBC (Bld) Eosinophils/100 leukocytes in Blood by Manual countHigh1-3FKettering Health – Soin Medical CenterErythrocyte distribution width Auto (RBC) [Ratio]Ordered By: Jose Alfredo Brantley on 23-99-1972Oggjojrqibd distribution width (RBC) [Ratio]Erythrocyte distribution width [Ratio] by Automated ddurhSuss89.0-14.8Reg[facility] Hospital Cleveland EastErythrocyte morphology finding [Identifier] in BloodOrdered By: Jose Alfredo Brantley on 23-50-9692CUS morphology finding Nom (Bld)RBC morphologyRegency Hospital Cleveland EastGlobulin Calc (S) [Mass/Vol]Ordered By: Jose Alfredo Brantley on 14-13-1377Fszgbqlq (S) [Mass/Vol]Serum globulin measurement by calculation (mass/volume)[facility] EastGlucose Glucometer (BldC) [Mass/Vol]Ordered By: Jose Alfredo Brantley on 74-56-2494Xthppdz [Mass/Vol]Capillary blood glucose measurement by glucometer (mass/volume)[facility] Cleveland EastComment on above:Random Glucose Reference Range is dependent on time and content of last meal. Glucose of more than 200 mg/dL in a nonstressed, ambulatory subject supports the diagnosis of Diabetes Mellitus.Glucose Poct Glucometerson 93-81-9451Clxifds [Mass/Vol]386 mg/dLOrlando Health South Lake Hospital GroupComment on above:Result Comment: Random Glucose Reference Range is dependent on time and content of last meal. Glucose of more than 200 mg/dL in a nonstressed, ambulatory subject supports the diagnosis of Diabetes Mellitus. PERFORMED BY: [address] [place] [address] PATHOLOGIST CLAY ROASTER ANDRE PERALTA M.D.Performed By: #### GLULS #### Point of Care testing ,Pkzsoyn9XmqedjWzw[address] Physician GroupComment on above:Result Comment: Glu2: Will Repeat TestPerformed By: #### GLULS #### Point of Care testing ,Qedxdov4GAWX NOTIFY /KyleMission Hospital McDowell Physician GroupComment on above: Result Comment: PERFORMED BY: [address] [place] [id number] PATHOLOGIST CLAY ROASTER ANDRE PERALTA M.D.Performed By: #### GLULS #### Point of Care testing ,Glucose [Mass/Vol]417 mg/dLOff scale [facility] Physician GroupComment on above:Result Comment: Random Glucose Reference Range is dependent on time and content of last meal. Glucose of more than 200 mg/dL in a nonstressed, ambulatory subject supports the diagnosis of Diabetes Mellitus.Performed By: #### GLULS #### Point of Care testing ,Xylhmhj5DbdrmjYgs[address] Physician Compranay on above:Result Comment: Glu2: Will Repeat Test PERFORMED BY: [address] [place] [id number] PATHOLOGIST CLAY ROASTER ANDRE PERALTA M.D.Performed By: #### GLULS #### Point of Care testing ,Glucose [Mass/Vol]483 mg/dLOff scale [facility] Physician GroupComment on above:Result Comment: Random Glucose Reference Range is dependent on time and content of last meal. Glucose of more than 200 mg/dL in a nonstressed, ambulatory subject supports the diagnosis of Diabetes Mellitus.Performed By: #### GLULS #### Point of Care testing ,Glucose [Mass/Vol]393 mg/dLOrlando Health South Lake Hospital Physician GroupComment on above: Result Comment: Random Glucose Reference Range is dependent on time and content of last meal. Glucose of more than 200 mg/dL in a nonstressed, ambulatory subject supports the diagnosis of Diabetes Mellitus. PERFORMED BY: [address] [address] PATHOLOGIST CLAY ROASTER ANDRE PERALTA M.D.Performed By: #### GLULS #### Point of Care testing ,Glucose [Mass/Vol]85 mg/dLOrlando Health South Lake Hospital Physician GroupComment on above: Result Comment: Random Glucose Reference Range is dependent on time and content of last meal. Glucose of more than 200 mg/dL in a nonstressed, ambulatory subject supports the diagnosis of Diabetes Mellitus. PERFORMED BY: [facility] [address] [place] [address] PATHOLOGIST CLAY ROASTER ANDRE PERALTA M.D.Performed By: #### GLULS #### Point of Care testing ,Glucose [Mass/volume] in Serum or PlasmaOrdered By: Jos eAlfredo Brantley on 06-18-2024 Glucose [Mass/Vol]Glucose [Mass/volume] in Serum or Knyush93-715TjcwygvpiRegency Hospital Cleveland EastComment on above:ADA recommended reference rangeRandom Glucose Reference Range is dependent on time and content of last meal. Glucose of more than 200 mg/dL in a nonstressed, ambulatory subject supports the diagnosisof Diabetes Mellitus.Hematocrit Auto (Bld) [Volume fraction]Ordered By: Jose Alfredo Brantley on 99-25-3364Mijpimtaym (Bld) [Volume fraction]Hematocrit [Volume Fraction] of Blood by Automated oasgjCcc45.8-50.0[facility] EastHemoglobin [Mass/volume] in BloodOrdered By: Jose Alfredo Brantley on 06-18-2024 Hemoglobin (Bld) [Mass/Vol]Hemoglobin [Mass/volume] in YvhtpVpi73.0-17.0 [facility] EastHypochromia LM Ql (Bld)Ordered By: Jose Alfredo Brantley on 63-62-8984Ihnsbducncl Ql (Bld)Hypochromia [Presence] in Blood by Light microscopyRegency Hospital Cleveland EastLeukocytes [#/volume] corrected for nucleated erythrocytes in Blood by Automated counOrdered By: Jose Alfredo Brantley on 29-43-6224RCG corrected for nucl RBC Auto (Bld) [#/Vol]Leukocytes [#/volume] corrected for nucleated erythrocytes in Blood by Automated coun4.1-10.5FKettering Health – Soin Medical CenterLymphocytes Auto (Bld) [#/Vol]Ordered By: Jose Alfredo Brantley on 74-17-5201Lrtcqqjwkwu (Bld) [#/Vol]Lymphocytes [#/volume] in Blood by Automated countRegency Hospital Cleveland EastLymphocytes/100 WBC Auto (Bld)Ordered By: Jose Alfredo Brantley on 11-57-7908Pzvmayhkcjd/100 WBC (Bld)Lymphocytes/100 leukocytes in Blood by Automated countRegency Hospital Cleveland EastLymphocytes/100 WBC Manual cnt (Bld)Ordered By: Jose Alfredo Brantley on 99-00-2541Lcqkgegwxsa/100 WBC (Bld) Lymphocytes/100 leukocytes in Blood by Manual ysmbiCpj06-75DytjdgolxOhioHealth Arthur G.H. Bing, MD, Cancer CenterH Auto (RBC) [Entitic mass]Ordered By: Jose Alfredo Brantley on 06-18-2024 MCH (RBC) [Entitic mass]MCH [Entitic mass] by Automated cyymlNvc45.5-35.2 [facility] Cancer CenterHC Auto (RBC) [Mass/Vol]Ordered By: Jose Alfredo Brantley on 18-85-7277DALS (RBC) [Mass/Vol]MCHC [Mass/volume] by Automated count 32.5-35.6FKettering Health – Soin Medical CenterMCV Auto (RBC) [Entitic vol]Ordered By: Jose Alfredo Brantley on 67-04-5857OLX (RBC) [Entitic vol]MCV [Entitic volume] by Automated mzcxwCar96.5-101Reg[facility] EastMacrocytes LM Ql (Bld)Ordered By: Jose Alfredo Brantley on 90-02-3180Inxuzcmyfp Ql (Bld)Macrocytes [Presence] in Blood by Light microscopyRegency Hospital Cleveland East Microcytes LM Ql (Bld)Ordered By: Jose Alfredo Brantley on 62-26-9084Tsrblitwui Ql (Bld) Microcytes [Presence] in Blood by Light microscopyRegency Hospital Cleveland EastMonocytes Auto (Bld) [#/Vol]Ordered By: Jose Alfredo Brantley on 71-96-4909Qytqhsmtz (Bld) [#/Vol]Automated blood monocyte countRegency Hospital Cleveland East Monocytes/100 WBC Auto (Bld)Ordered By: Jose Alfredo Brantley on 64-47-1449Rpczglufq/100 WBC (Bld)Automated monocyte %[facility] EastMonocytes/100 WBC Manual cnt (Bld)Ordered By: Jose Alfredo Brantley on 05-08-8047Ysnraooic/100 WBC (Bld) Monocytes/100 leukocytes in Blood by Manual countHigh2-11Reg[facility] Hospital Cleveland EastNeutrophils Auto (Bld) [#/Vol]Ordered By: Jose Alfredo Brantley on 27-31-5516Lsmtpdlemjs (Bld) [#/Vol]Neutrophils [#/volume] in Blood by Automated countRegency Hospital Cleveland EastNeutrophils/100 WBC Auto (Bld)Ordered By: Jose Alfredo Brantley on 41-19-3949Oruvuwdsmtm/100 WBC (Bld)Automated neutrophil % [facility] EastNo Panel InformationOrdered By: Jose Alfredo Brantley on 30-18-1754Ezhugba Glucose #[address] HospitalBedside Glucose CommentSee commentRegency Hospital Cleveland EastComment on above:Glu2: Will Repeat TestEstimated GFR (CKD-EPI)> 60.0 mL/MinRegency Hospital Cleveland EastPharmacy Creatinine Clearance (Chem50.22Reg[facility] EastNucleated erythrocytes [Presence] in Blood by Automated countOrdered By: Jose Alfredo Brantley on 16-25-6373Amudmwmoe RBC Auto Ql (Bld)Nucleated erythrocytes [Presence] in Blood by Automated countRegency Hospital Cleveland EastPlatelet adequacy [Presence] in Blood by Light microscopyOrdered By: Jose Alfredo Brantley on 48-16-7786Hpkfhqrov LM Ql (Bld)Platelet adequacy [Presence] in Blood by Light microscopyNormalRegency Hospital Cleveland EastPlatelet mean volume Auto (Bld) [Entitic vol]Ordered By: Jose Alfredo Brantley on 19-85-3819Ezkbgoyl mean volume (Bld) [Entitic vol]Platelet mean volume [Entitic volume] in Blood by Automated count6.6-10.1FKettering Health – Soin Medical CenterPlatelet morphology finding [Identifier] in BloodOrdered By: Jose Alfredo Brantley on 05-53-1922Wmfxxtke morphology finding Nom (Bld)Platelet morphology finding [Identifier] in Blood [facility] EastPlatelets Auto (Bld) [#/Vol]Ordered By: Jose Alfredo Brantley on 38-61-7614Zqaaworid (Bld) [#/Vol]Platelets [#/volume] in Blood by Automated akhsl605-813XmfglqiokCommunity Regional Medical Center Large [Presence] in Blood by Light microscopyOrdered By: Jose Alfredo Brantley on 06-18-2024 Platelets Large LM Ql (Bld)Platelets Large [Presence] in Blood by Light microscopyRegency Hospital Cleveland EastPoikilocytosis [Presence] in Blood by Light microscopyOrdered By: Jose Alfredo Brantley on 08-19-6649Uvdhxsdxecezgt LM Ql (Bld) Poikilocytosis [Presence] in Blood by Light microscopyRegency Hospital Cleveland EastPolychromasia [Presence] in Blood by Light microscopyOrdered By: Jose Alfredo Brantley on 38-28-2320Wrtiuittxpevy LM Ql (Bld)Polychromasia [Presence] in Blood by Light microscopyRegency Hospital Cleveland EastPotassium [Moles/volume] in Serum or PlasmaOrdered By: Jose Alfredo Brantley on 13-41-7259Lnyfajjav [Moles/Vol] Potassium [Moles/volume] in Serum or Plasma3.5-5.1FKettering Health – Soin Medical CenterProtein [Mass/volume] in Serum or PlasmaOrdered By: Jose Alfredo Brantley on 26-17-0276Jieokrr [Mass/Vol]Protein [Mass/volume] in Serum or Plasma6.4-8.9 [facility] EastRBC Auto (Bld) [#/Vol]Ordered By: Jose Alfredo Brantley on 02-42-4848CXF (Bld) [#/Vol]Erythrocytes [#/volume] in Blood by Automated count3.90-5.60Fire[facility] Medical CenterSchistocytes [Presence] in Blood by Light microscopyOrdered By: Jose Alfredo Brantley on 24-60-6106Ksgpbnzbsxiz LM Ql (Bld) Schistocytes [Presence] in Blood by Light microscopyMemorial Hospitalegmented neutrophils/100 WBC Manual cnt (Bld)Ordered By: Jose Alfredo Brantley on 23-13-8510Qrkmsalqe neutrophils/100 WBC (Bld)Manual blood segmented neutrophils/100 -58WkltricdmMemorial Hospitalerum or plasma albumin/globulin mass ratioOrdered By: Jose Alfredo Brantley on 94-35-1273Ngmxcbw/Globulin [Mass ratio]Serum or plasma albumin/globulin mass ratioMemorial Hospitalerum or plasma anion gap determinationOrdered By: Jose Alfredo Brantley on 64-82-9957Rmjmf gap [Moles/Vol]Serum or plasma anion gap determination6.0-15.0 Memorial Hospitalodium [Moles/volume] in Serum or PlasmaOrdered By: Jose Alfredo Brantley on 80-01-0375Ryurgb [Moles/Vol]Sodium [Moles/volume] in Serum or Hhdyhk195-014MxswxpbioRegency Hospital Cleveland EastTarget cells [Presence] in Blood by Light microscopyOrdered By: Jose Alfredo Brantley on 14-43-3064Shlonx cells LM Ql (Bld)Target cellsRegency Hospital Cleveland EastUrea nitrogen [Mass/volume] in Serum or PlasmaOrdered By: Jose Alfredo Brantley on 06-24-5189Eejk nitrogen [Mass/Vol] Urea nitrogen [Mass/volume] in Serum or Plasma7-25Reg[facility] Hospital [facility] EastWBC Auto (Bld) [#/Vol]Ordered By: Jose Alfredo Brantley on 30-57-9571CVL (Bld) [#/Vol]Leukocytes [#/volume] in Blood by Automated count4.1-10.5FKettering Health – Soin Medical CenterComprehensive Metabolic Panelon 30-83-4788Pszxgbh [Mass/Vol]3.3 g/dLLow3.5-5.7The [facility] Physician GroupComment on above: Performed By: #### CMP, SCAN CBC, PHOS, MG ####[facility] [id number] [place] [address] USAAlbumin/Globulin [Mass ratio]1.2 {ratio}NormalThe [facility] Physician GroupComment on above:Performed By: #### CMP, SCAN CBC, PHOS, MG ####[place] [address] USAALP [Catalytic activity/Vol]109 U/OKjdh30-396Pfg [facility] Physician GroupComment on above:Performed By: #### CMP, SCAN CBC, PHOS, MG ####[place] [address] USAALT [Catalytic activity/Vol]12 U/LNormal7-52The [facility] Physician Group Comment on above:Performed By: #### CMP, SCAN CBC, PHOS, MG ####[place] [address] USAAnion gap [Moles/Vol] 11.1 mmol/LNormal6.0-15.0The [facility] Physician GroupComment on above:Performed By: #### CMP, SCAN CBC, PHOS, MG ####[place] [address] USAAST [Catalytic activity/Vol]20 U/WPftygz04-62Yka [facility] Physician GroupComment on above:Performed By: #### CMP, SCAN CBC, PHOS, MG ####[place] [address] USABilirubin [Mass/Vol]0.4 mg/dLNormal0.3-1.0The [facility] Physician [facility] Comment on above:Performed By: #### CMP, SCAN CBC, PHOS, MG ####[place] [address] USACalcium [Mass/Vol]8.4 mg/dLLow8.6-10.3The [facility] Physician GroupComment on above:Performed By: #### CMP, SCAN CBC, PHOS, MG ####[place] [address] USAChloride [Moles/Vol]101 mmol/LNxljla70-949Laz [facility] Physician GroupComment on above:Performed By: #### CMP, SCAN CBC, PHOS, MG ####[facility] [place] [address] USACO2 [Moles/Vol]27.8 mmol/VSrnuam45.0-31.0The [facility] Physician GroupComment on above:Performed By: #### CMP, SCAN CBC, PHOS, MG ####[place] [address] [place] [address] USACreatinine [Mass/Vol]0.79 mg/dLNormal0.70-1.30The [facility] Physician GroupComment on above:Performed By: #### CMP, SCAN CBC, PHOS, MG ####[place] [address] [place] [address] USACreatinine Clr Calc Nxoxcnkr70.66NormPhysicians Regional Medical Center - Collier Boulevard Physician GroupComment on above:Performed By: #### CMP, SCAN CBC, PHOS, MG ####[place] [address] [place] [address] [place] GFR/1.73 sq M.predicted MDRD (S/P/Bld) [Vol rate/Area]mL/min/{1.73_m2}NormalThe [facility] Physician GroupComment on above:Performed By: #### CMP, SCAN CBC, PHOS, MG ####[place] [address] [place] [address] USAGlobulin (S) [Mass/Vol]2.8 g/dLNoMission Hospital McDowell Physician [facility] Health CenterComment on above:Performed By: #### CMP, SCAN CBC, PHOS, MG ####[place] [address] USAGlucose [Mass/Vol]79 mg/pLKomhdj07-959 The [facility] Physician GroupComment on above:Result Comment: Random Glucose Reference Range is dependent on time and content of last meal. Glucose of more than 200 mg/dL in a nonstressed, ambulatory subject supports the diagnosis of Diabetes Mellitus. ADA recommended reference rangePerformed By: #### CMP, SCAN CBC, PHOS, MG ####[place] [address] [place] [address] [place] Potassium [Moles/Vol]3.9 mmol/LNormal3.5-5.1The [facility] Physician GroupComment on above:Performed By: #### CMP, SCAN CBC, PHOS, MG ####[place] [address] USAProtein [Mass/Vol]6.1 g/dLLow 6.4-8.9The [facility] Physician GroupComment on above:Performed By: #### CMP, SCAN CBC, PHOS, MG ####[place] [address] USASodium [Moles/Vol]136 mmol/JTncyvt164-139Ucp [facility] Physician GroupComment on above:Performed By: #### CMP, SCAN CBC, PHOS, MG ####[place] [address] USAUrea nitrogen [Mass/Vol]22 mg/dLNormal7-25The [facility] Physician GroupComment on above: Performed By: #### CMP, SCAN CBC, PHOS, MG ####[place] [id number] USAGlucose Poct Glucometerson 06-17-2024 Kqkmrgz3Xnn7: Cleaned MeterOrlando Health South Lake Hospital Physician GroupComment on above: Result Comment: PERFORMED BY: [place] [address] PATHOLOGIST CLAY ROASTER ANDRE PERALTA M.D.Performed By: #### GLULS #### Point of Care testing ,Glucose [Mass/Vol]229 mg/dLNoMission Hospital McDowell Physician GroupComment on above: Result Comment: Random Glucose Reference Range is dependent on time and content of last meal. Glucose of more than 200 mg/dL in a nonstressed, ambulatory subject supports the diagnosis of Diabetes Mellitus.Performed By: #### GLULS #### Point of Care testing ,Modsgxr4Qjd1: Cleaned MeterOrlando Health South Lake Hospital Physician GroupComment on above: Result Comment: PERFORMED BY: [place] [address] PATHOLOGIST CLAY ROASTER ANDRE PERALTA M.D.Performed By: #### GLULS #### Point of Care testing ,Glucose [Mass/Vol]250 mg/dLOrlando Health South Lake Hospital Physician GroupComment on above: Result Comment: Random Glucose Reference Range is dependent on time and content of last meal. Glucose of more than 200 mg/dL in a nonstressed, ambulatory subject supports the diagnosis of Diabetes Mellitus.Performed By: #### GLULS #### Point of Care testing ,Glucose [Mass/Vol]352 mg/dLOrlando Health South Lake Hospital Physician GroupComment on above: Result Comment: Random Glucose Reference Range is dependent on time and content of last meal. Glucose of more than 200 mg/dL in a nonstressed, ambulatory subject supports the diagnosis of Diabetes Mellitus. PERFORMED BY: [place] [address] PATHOLOGIST CLAY ROASTER ANDRE PERALTA M.D.Performed By: #### GLULS ####Point of Care testing, Glucose [Mass/Vol]82 mg/dLOrlando Health South Lake Hospital Physician GroupComment on above: Result Comment: Random Glucose Reference Range is dependent on time and content of last meal. Glucose of more than 200 mg/dL in a nonstressed, ambulatory subject supports the diagnosis of Diabetes Mellitus. PERFORMED BY: [place] [address] PATHOLOGIST CLAY ROASTER ANDRE PERALTA M.D.Performed By: #### GLULS ####Point of Care testing, Magnesiumon 60-72-4187Ghnrkbnps [Mass/Vol]1.7 mg/dLLow1.9-2.7The [facility] Physician GroupComment on above:Result Comment: PERFORMED BY: [place] [address] PATHOLOGIST CLAY ROASTER ANDRE PERALTA M.D.Performed By: #### CMP, SCAN CBC, PHOS, MG ####[facility] [address] [place] [address] [facility] Magnesium [Mass/volume] in Serum or PlasmaOrdered By: Jose Alfredo Brantley on 06-17-2024 Magnesium [Mass/Vol]Magnesium [Mass/volume] in Serum or PlasmaLow1.9-2.7 [facility] EastPhosphate [Mass/volume] in Serum or Plasma Ordered By: Jose Alfredo Brantley on 24-80-3804Vtfqvazcc [Mass/Vol]Phosphate [Mass/volume] in Serum or Plasma2.5-4.5FKettering Health – Soin Medical CenterPhosphoruson 82-98-2622Nzfznyqbc [Mass/Vol]3.7 mg/dLNormal2.5-4.5The [facility] Physician GroupComment on above:Performed By: #### CMP, SCAN CBC, PHOS, MG ####[place] [address] USAScan and CBCon 34-82-8101EdqulthvnsutSyirdidbDbnnhmMfn [facility] Physician GroupComment on above:Performed By: #### CMP, SCAN CBC, PHOS, MG ####[place] [address] USAAnisocytosis Ql (Bld)[facility] Physician [facility] Health CenterComment on above:Performed By: #### CMP, SCAN CBC, PHOS, MG ####[place] [address] USABasophils (Bld) [#/Vol]0.1 10*3/uLNormal0.0-0.2The [facility]ician Group Comment on above:Performed By: #### CMP, SCAN CBC, PHOS, MG ####[place] [address] USABasophils/100 WBC (Bld)0.9 %Normal.The [facility] Physician GroupComment on above:Performed By: #### CMP, SCAN CBC, PHOS, MG ####[place] [id number] USACrenated RBCSlightOrlando Health South Lake Hospital Physician [facility] Health CenterComment on above:Performed By: #### CMP, SCAN CBC, PHOS, MG ####[place] [address] USAEosinophils (Bld) [#/Vol]0.2 10*3/uLNormal0.0-0.45The [facility] Physician GroupComment on above: Performed By: #### CMP, SCAN CBC, PHOS, MG ####[place] [address] USAEosinophils/100 WBC (Bld)2.0 %Normal. The [facility] Physician GroupComment on above:Performed By: #### CMP, SCAN CBC, PHOS, MG ####[place] [address] USAErythrocyte distribution width (RBC) [Ratio]20.3 %High12.0-14.8The [facility] Physician GroupComment on above:Performed By: #### CMP, SCAN CBC, PHOS, MG ####[place] [address] [place] Hematocrit (Bld) [Volume fraction]35.1 %Low38.8-50.0The [facility] Physician GroupComment on above:Performed By: #### CMP, SCAN CBC, PHOS, MG ####[place] [address] USAHemoglobin (Bld) [Mass/Vol]11.5 g/dLLow13.0-17.0The [facility] Physician GroupComment on above: Performed By: #### CMP, SCAN CBC, PHOS, MG ####[place] [address] USAHypochromasiaModerateNormPhysicians Regional Medical Center [facility] Col[facility] Boulevard Physician GroupComment on above:Performed By: #### CMP, SCAN CBC, PHOS, MG ####[place] [id number] USALarge PlateletsSlightNoMission Hospital McDowell Physician GroupComment on above: Result Comment: PERFORMED BY: [place] [address] PATHOLOGIST CLAY ROASTER ANDRE PERALTA M.D.Performed By: #### CMP, SCAN CBC, PHOS, MG ####[place] [address] [place] Lymphocytes (Bld) [#/Vol]1.7 10*3/uLNormal1.00-4.8The [facility] Comment on above:Performed By: #### CMP, SCAN CBC, PHOS, MG ####[place] [address] USALymphocytes/100 WBC (Bld)19.4 %Normal.The [facility] Physician GroupComment on above:Performed By: #### CMP, SCAN CBC, PHOS, MG ####[address] StreetMCH (RBC) [Entitic mass]25.5 pgLow27.5-35.2The [facility] Physician GroupComment on above:Performed By: #### CMP, SCAN CBC, PHOS, MG ####[address]V (RBC) [Entitic vol]77.8 fLLow83.5-101The [facility] Physician GroupComment on above:Performed By: #### CMP, SCAN CBC, PHOS, MG ####[place] [address] USAMean Corpuscular HGB Conc32.8 g/pYPmckeo18.5-35.6The [facility] Physician GroupComment on above:Performed By: #### CMP, SCAN CBC, PHOS, MG ####[place] [address] USAMicrocytosisSlightNormalThe [facility] Physician GroupComment on above:Performed By: #### CMP, SCAN CBC, PHOS, MG ####[place] [address] USAMonocytes (Bld) [#/Vol]1.2 10*3/uLHigh0.0-0.8The [facility] Physician GroupComment on above: Performed By: #### CMP, SCAN CBC, PHOS, MG ####[place] [address] USAMonocytes/100 WBC (Bld)14.4 %Normal. The [facility] Physician GroupComment on above:Performed By: #### CMP, SCAN CBC, PHOS, MG ####[place] [address] USANeutrophils (Bld) [#/Vol]5.4 10*3/uLNormal1.8-7.7The [facility] Physician GroupComment on above:Performed By: #### CMP, SCAN CBC, PHOS, MG ####[place] [address] USANeutrophils/100 WBC (Bld)63.3 %Normal.The [facility] Physician GroupComment on above:Performed By: #### CMP, SCAN CBC, PHOS, MG ####[place] [address] USANRBC%0.0 /100{WBC}Normal0-0.5The [facility] Physician GroupComment on above:Performed By: #### CMP, SCAN CBC, PHOS, MG ####[place] [address] USAPlatelet Estimate NormalNormalOrlando Health South Lake Hospital Physician GroupComment on above:Performed By: #### CMP, SCAN CBC, PHOS, MG ####[place] [id number] USAPlatelet mean volume (Bld) [Entitic vol]10.2 fLHigh 6.6-10.1The [facility] Physician GroupComment on above:Performed By: #### CMP, SCAN CBC, PHOS, MG ####[place] [id number] USAPlatelets (Bld) [#/Vol]213 10*3/pTBdhvjf571-486Opd [facility] Physician GroupComment on above:Performed By: #### CMP, SCAN CBC, PHOS, MG ####[place] [address] [place] PoikilocytosisMarkedNormPhysicians Regional Medical Center - Collier Boulevard Physician GroupComment on above: Performed By: #### CMP, SCAN CBC, PHOS, MG ####[facility] [place] [address] USAPolychromasiaSlightOrlando Health South Lake Hospital Physician GroupComment on above:Performed By: #### CMP, SCAN CBC, PHOS, MG ####[place] [address] [place] [address] USARBC (Bld) [#/Vol]4.52 10*6/uLNormal3.90-5.60The [facility] Physician GroupComment on above:Performed By: #### CMP, SCAN CBC, PHOS, MG ####[address] [address] USASchistocytesHCA Florida Kendall Hospital Physician GroupComment on above:Performed By: #### CMP, SCAN CBC, PHOS, MG ####[address] [address] USATarget CellsHCA Florida Kendall Hospital Physician GroupComment on above: Performed By: #### CMP, SCAN CBC, PHOS, MG ####[address] [address] USAWBC (Bld) [#/Vol]8.5 10*3/uLNormal 4.1-10.5The [facility] Physician GroupComment on above:Performed By: #### CMP, SCAN CBC, PHOS, MG ####[address] [address] USABacteria identified Aer cx Nom (Unsp spec)Ordered By: Vargas Reis on 08-63-1215Gjxrlvkwszq Wound CultureAbnoGreen Cross Hospital Blood Cultureon 68-80-2032Ibpfrgif identified Cx Nom (Bld)NO GROWTH 5 DAYS PERFORMED BY: [facility] [address] [place] [id number] PATHOLOGIST CLAY ROASTER ANDRE PERALTA M.D.NormalThe [facility] Physician GroupComment on above: Performed By: #### GLULS #### Point of Care testing ,Bacteria identified Cx Nom (Bld)NO GROWTH 5 DAYS PERFORMED BY: [address] [address] PATHOLOGIST CLAY ROASTER ANDRE PERALTA M.D.[facility] Physician GroupComment on above: Performed By: #### GLULS #### Point of Care testing ,Bacteria identified Cx Nom (Bld)NO GROWTH 5 DAYS PERFORMED BY: [address] [address] PATHOLOGIST CLAY ROASTER ANDRE PERALTA M.D.[facility] Physician GroupComment on above: Performed By: #### GLULS #### Point of Care testing ,CT abdomen w conon 92-51-5406XG abdomen w [facility] Main [facility] [address] [place] [address] Scan Report Signed Patient: Manolo Roche MR#: [id number] 353 : 1935 Acct:[id number] Age/Sex: 89 / M ADM Date: 06/16/24 Loc: ER Room: Type: [facility] ER Attending Dr: Copies to: Vargas Reis [...] Sheldon Johnson M.D.06/16/2024 3:48 PM Dictation Location: [place] [address] Transcribed By: [facility] 06/16/24 1548 Dictated By: Sheldon Johnson DO 06/16/24 1535 Signed By: 06/16/24 1548NoMission Hospital McDowell Physician GroupComprehensive Metabolic Panelon 20-45-8930Ajjvoyq [Mass/Vol]3.5 g/dLNormal3.5-5.7The [facility] Comment on above:Performed By: #### GLULS #### Point of Care testing ,Albumin/Globulin [Mass ratio]1.2 {ratio}NormalThe [facility] Comment on above:Performed By: #### GLULS #### Point of Care testing ,ALP [Catalytic activity/Vol]116 U/CYbkl72-347Wij [facility] Comment on above:Performed By: #### GLULS #### Point of Care testing ,ALT [Catalytic activity/Vol]17 U/LNormal7-52The [facility]ician [facility] Comment on above:Performed By: #### GLULS #### Point of Care testing ,Anion gap [Moles/Vol]10.2 mmol/LNormal6.0-15.0The [facility]ician [facility] Comment on above:Performed By: #### GLULS #### Point of Care testing ,AST [Catalytic activity/Vol]24 U/STwuvjr09-45Fec [facility] Comment on above:Performed By: #### GLULS #### Point of Care testing ,Bilirubin [Mass/Vol]0.4 mg/dLNormal0.3-1.0The [facility] Physician GroupComment on above:Performed By: #### GLULS #### Point of Care testing ,Calcium [Mass/Vol]8.8 mg/dLNormal8.6-10.3The [facility] Physician GroupComment on above:Performed By: #### GLULS #### Point of Care testing ,Chloride [Moles/Vol]98 mmol/LJuumok11-398Djk [facility] Physician GroupComment on above:Performed By: #### GLULS #### Point of Care testing ,CO2 [Moles/Vol]30.4 mmol/WFxdbhi98.0-31.0The [facility] Physician GroupComment on above:Performed By: #### GLULS #### Point of Care testing ,Creatinine [Mass/Vol]1.10 mg/dLNormal0.70-1.30The [facility]ician [facility] Comment on above:Performed By: #### GLULS #### Point of Care testing ,Creatinine Clr Calc Oumesxcn25.08NormPhysicians Regional Medical Center - Collier Boulevard Physician GroupComment on above:Result Comment: PERFORMED BY: [address] [place] [address] PATHOLOGIST CLAY ROASTER ANDRE PERALTA M.D.Performed By: #### GLULS #### Point of Care testing ,GFR/1.73 sq M.predicted MDRD (S/P/Bld) [Vol rate/Area]mL/min/{1.73_m2}NormalThe [facility] Physician GroupComment on above:Performed By: #### GLULS #### Point of Care testing ,Globulin (S) [Mass/Vol]3.0 g/dLNoMission Hospital McDowell Physician GroupComment on above:Performed By: #### GLULS #### Point of Care testing ,Glucose [Mass/Vol]118 mg/rHJfov01-717Yjj [facility] Physician GroupComment on above:Result Comment: Random Glucose Reference Range is dependent on time and content of last meal. Glucose of more than 200 mg/dL in a nonstressed, ambulatory subject supports the diagnosis of Diabetes Mellitus. ADA recommended reference rangePerformed By: #### GLULS #### Point of Care testing ,Potassium [Moles/Vol]4.6 mmol/LNormal3.5-5.1The [facility] Comment on above:Performed By: #### GLULS #### Point of Care testing ,Protein [Mass/Vol]6.5 g/dLNormal6.4-8.9The [facility] Physician GroupComment on above:Performed By: #### GLULS #### Point of Care testing ,Sodium [Moles/Vol]134 mmol/BPfq866-458Yzi [facility] Physician GroupComment on above:Performed By: #### GLULS #### Point of Care testing ,Urea nitrogen [Mass/Vol]29 mg/dLHigh7-25The [facility] Physician GroupComment on above:Performed By: #### GLULS #### Point of Care testing ,ECG 12 lead ECGon 70-48-3021MJR 12 lead ECGKETTERING HEALTH [place] [address] Electrocardiograph Report Signed Patient: Manolo Roche MR#: [id number] 353 : 1935 Acct:[id number] Age/Sex: 89 / M ADM Date: 06/16/24 Loc: Room: [address] [place] [address] Type: ADM IN Attending Dr: Jose Alfredo [...] Anterior leads Confirmed by MARVIN KONG DO ([id number]) on 06/16/2024 7:24:37 PM Referred By: Electronically Signed By: MARVIN KONG DO Transcribed By: MUS Signed By Marvin Kong DO 06/16 1924[facility] Physician [facility] CenterGlucose Poct Glucometerson 06-16-2024 Glucose [Mass/Vol]385 mg/dLTyler HospitalComment on above: Result Comment: Random Glucose Reference Range is dependent on time and content of last meal. Glucose of more than 200 mg/dL in a nonstressed, ambulatory subject supports the diagnosis of Diabetes Mellitus. PERFORMED BY: [address] [address] PATHOLOGIST CLAY ROASTER ANDRE PERALTA M.D.Performed By: #### GLULS ####Point of Care testing, Ricohpr1LpaclySqv[address] Physician GroupComment on above:Result Comment: Glu2: Will Repeat TestPerformed By: #### GLULS ####Point of Care testing, Paofikq4OSWI NOTIFY DR/RNNoMission Hospital McDowell Physician GroupComment on above: Result Comment: PERFORMED BY: [address] [place] [address] PATHOLOGIST CLAY ROASTER ANDRE PERALTA M.D.Performed By: #### GLULS ####Point of Care testing, Glucose [Mass/Vol]401 mg/dLOff scale highNch Healthcare System - Downtown Naples Physician GroupComment on above:Result Comment: Random Glucose Reference Range is dependent on time and content of last meal. Glucose of more than 200 mg/dL in a nonstressed, ambulatory subject supports the diagnosis of Diabetes Mellitus.Performed By: #### GLULS ####Point of Care testing,Helmet cells [Presence] in Blood by Light microscopyOrdered By: Vargas Reis on 02-27-8890Kdicrf cells LM Ql (Bld)Helmet cell detectionRegency Hospital Cleveland EastLaboratory - Microbiology and Antimicrobial susceptibilityOrdered By: Marvin Kong on 26-14-0098Jvnnebil identified Cx Nom (Bld)NO GROWTH 5 DAYS [facility] EastBacteria identified Cx Nom (Bld)NO GROWTH 5 DAYSRegency Hospital Cleveland EastLaboratory - Microbiology and Antimicrobial susceptibilityOrdered By: Vargas Reis on 95-39-0058Rgjpyuqw identified Cx Nom (Bld)NO GROWTH 5 DAYSRegency Hospital Cleveland EastLactate [Moles/volume] in Serum or PlasmaOrdered By: Marvin Kong on 81-22-4155Rnyfzsd [Moles/Vol] Lactate [Moles/volume] in Serum or Plasma0.5-2.2FKettering Health – Soin Medical CenterLactic Acidon 19-27-2540Qdxknzu [Moles/Vol]1.0 mmol/LNormal0.5-2.2The [facility] Physician [facility] CenterComment on above:Result Comment: PERFORMED BY: [address] [place] [address] PATHOLOGIST CLAY ROASTER ANDRE PERALTA M.D.Performed By: #### GLULS #### Point of Care testing ,Monocyte distribution width [Entitic volume] in Blood by AutomatedOrdered By: Vargas Reis on 54-83-0950Hwilcaxd distribution width Auto (Bld) [Entitic vol] Monocyte distribution width [Entitic volume] in Blood by AutomatedHigh0.00-20.00 [facility] Cleveland EastComment on above:For adults in ED, MDW > 20.0 may be associated with a higher risk of sepsis during the first 12 hrs of hospital admissionScan and CBCon 25-08-1256UatcjdbvdocoWrytbaIswjmiTag [place] Physician GroupComment on above:Performed By: #### GLULS #### Point of Care testing ,Anisocytosis Ql (Bld)[facility] Physician [facility] CenterComment on above: Performed By: #### GLULS #### Point of Care testing ,Basophils (Bld) [#/Vol]0.0 10*3/uLNormal0.0-0.2The [facility] Physician [facility] Comment on above:Result Comment: PERFORMED BY: [facility] [address] [place] [address] PATHOLOGIST CLAY ROASTER ANDRE PERALTA M.D.Performed By: #### GLULS #### Point of Care testing ,Basophils/100 WBC (Bld)0.4 %Normal.The [facility] Physician GroupComment on above:Performed By: #### GLULS #### Point of Care testing ,Crenated RBCSUNC Health Pardee Physician GroupComment on above:Performed By: #### GLULS #### Point of Care testing ,Eosinophils (Bld) [#/Vol]0.1 10*3/uLNormal0.0-0.45The [facility] Physician [facility] Comment on above:Performed By: #### GLULS #### Point of Care testing ,Eosinophils/100 WBC (Bld)0.5 %Normal.The [facility] Physician GroupComment on above:Performed By: #### GLULS #### Point of Care testing ,Erythrocyte distribution width (RBC) [Ratio]20.2 %High12.0-14.8The [facility] Physician GroupComment on above:Performed By: #### GLULS #### Point of Care testing ,Helmet CellsSUNC Health Pardee Physician GroupComment on above:Performed By: #### GLULS #### Point of Care testing ,Hematocrit (Bld) [Volume fraction]36.1 %Low38.8-50.0The [facility] Physician GroupComment on above:Performed By: #### GLULS #### Point of Care testing ,Hemoglobin (Bld) [Mass/Vol]11.9 g/dLLow13.0-17.0The [facility] Physician [facility] Comment on above:Performed By: #### GLULS #### Point of Care testing ,HypochromasiaModerateOrlando Health South Lake Hospital Physician GroupComment on above: Performed By: #### GLULS #### Point of Care testing ,Lymphocytes (Bld) [#/Vol]2.3 10*3/uLNormal1.00-4.8The [facility] Physician [facility] Comment on above:Performed By: #### GLULS #### Point of Care testing ,Lymphocytes/100 WBC (Bld)22.7 %Normal.The [facility] Physician GroupComment on above:Performed By: #### GLULS #### Point of Care testing ,MacrocytosisSUNC Health Pardee Physician GroupComment on above:Performed By: #### GLULS #### Point of Care testing ,MCH (RBC) [Entitic mass]25.5 pgLow27.5-35.2The [facility] Physician GroupComment on above:Performed By: #### GLULS #### Point of Care testing ,MCV (RBC) [Entitic vol]77.4 fLLow83.5-101The [facility] Physician GroupComment on above:Performed By: #### GLULS #### Point of Care testing ,Mean Corpuscular HGB Conc33.0 g/mTLnzydv00.5-35.6The [facility]ician Group Comment on above:Performed By: #### GLULS #### Point of Care testing ,MicrocytosisSUNC Health Pardee Physician GroupComment on above:Performed By: #### GLULS #### Point of Care testing ,Monocytes (Bld) [#/Vol]1.2 10*3/uLHigh0.0-0.8The [facility]ician Group Comment on above:Performed By: #### GLULS #### Point of Care testing ,Monocytes/100 WBC (Bld)21.77 %High0.00-20.00The [facility]ician [facility] Comment on above:Result Comment: For adults in ED, MDW > 20.0 may be associated with a higher risk of sepsis during the first 12 hrs of hospital admissionPerformed By: #### GLULS #### Point of Care testing ,Monocytes/100 WBC (Bld)11.5 %Normal.The [facility] Physician GroupComment on above:Performed By: #### GLULS #### Point of Care testing ,Neutrophils (Bld) [#/Vol]6.5 10*3/uLNormal1.8-7.7The [facility] Physician [facility] Comment on above:Performed By: #### GLULS #### Point of Care testing ,Neutrophils/100 WBC (Bld)64.9 %Normal.The [facility] Physician GroupComment on above:Performed By: #### GLULS #### Point of Care testing ,NRBC%0.1 /100{WBC}Normal0-0.5The [facility] Physician GroupComment on above: Performed By: #### GLULS #### Point of Care testing ,Platelet EstimateNormalNormalOrlando Health [facility] Lake Hospital Physician GroupComment on above:Performed By: #### GLULS #### Point of Care testing ,Platelet mean volume (Bld) [Entitic vol]10.9 fLHigh6.6-10.1The [facility] Physician GroupComment on above:Performed By: #### GLULS #### Point of Care testing ,Platelet MorphologyNormalNormalNoMission Hospital McDowell Physician GroupComment on above:Result Comment: PERFORMED BY: [facility] [place] [address] PATHOLOGIST CLAY ROASTER ANDRE PERALTA M.D.Performed By: #### GLULS #### Point of Care testing ,Platelets (Bld) [#/Vol]233 10*3/mUGkfngx490-947Mom [facility] Physician Group Comment on above:Performed By: #### GLULS #### Point of Care testing ,PoikilocytosisMarkedOrlando Health South Lake Hospital Physician GroupComment on above: Performed By: #### GLULS #### Point of Care testing ,PolychromasiaModerateOrlando Health South Lake Hospital Physician GroupComment on above: Performed By: #### GLULS #### Point of Care testing ,RBC (Bld) [#/Vol]4.67 10*6/uLNormal3.90-5.60The [facility] Physician [facility] Comment on above:Performed By: #### GLULS #### Point of Care testing ,SchistocytesModerateOrlando Health South Lake Hospital Physician GroupComment on above: Performed By: #### GLULS #### Point of Care testing ,Target CellsModerateOrlando Health South Lake Hospital Physician GroupComment on above: Performed By: #### GLULS #### Point of Care testing ,WBC (Bld) [#/Vol]10.1 10*3/uLNormal4.1-10.5The [facility] Physician GroupComment on above:Performed By: #### GLULS #### Point of Care testing ,Superficial Wound Cultureon 81-99-1211Ealuapmtagr Wound CultureORGANISM: Staphylococcus aureus (O:STAAUR) Quantity of [...] RESISTANT TO ALL B-LACTAM DRUGS. PERFORMED BY: [address] [address] PATHOLOGIST CLAY ROASTER ANDRE PERALTA M.D.NormalThe [facility] Physician GroupComment on above: Performed By: #### GLULS #### Point of Care testing ,Basic Metabolic Panelon 82-23-9889Njzit gap [Moles/Vol]11.5 mmol/LNormal 6.0-15.0The [facility] Physician GroupComment on above:Performed By: #### GLULS #### Point of Care testing ,Calcium [Mass/Vol]8.6 mg/dLNormal8.6-10.3The [facility] Physician GroupComment on above:Performed By: #### GLULS #### Point of Care testing ,Chloride [Moles/Vol]103 mmol/XDseswq11-312Fkq [facility] Physician GroupComment on above:Performed By: #### GLULS #### Point of Care testing ,CO2 [Moles/Vol]27.5 mmol/ODlhmgo76.0-31.0The [facility] Physician GroupComment on above:Performed By: #### GLULS #### Point of Care testing ,Creatinine [Mass/Vol]0.75 mg/dLNormal0.70-1.30The [facility]ician Group Comment on above:Performed By: #### GLULS #### Point of Care testing ,Creatinine Clr Calc Rasevkdt81.91NormalThe [facility] Physician GroupComment on above:Result Comment: PERFORMED BY: [facility] [address] [place] [address] PATHOLOGIST CLAY ROASTER ANDRE PERALTA M.D.Performed By: #### GLULS #### Point of Care testing ,GFR/1.73 sq M.predicted MDRD (S/P/Bld) [Vol rate/Area]mL/min/{1.73_m2}NormalThe [facility] Physician GroupComment on above:Performed By: #### GLULS #### Point of Care testing ,Glucose [Mass/Vol]80 mg/lRVactbc17-164Uju [facility] Physician GroupComment on above:Result Comment: Random Glucose Reference Range is dependent on time and content of last meal. Glucose of more than 200 mg/dL in a nonstressed, ambulatory subject supports the diagnosis of Diabetes Mellitus. ADA recommended reference rangePerformed By: #### GLULS #### Point of Care testing ,Potassium [Moles/Vol]4.0 mmol/LNormal3.5-5.1The [facility]ician [facility] Comment on above:Performed By: #### GLULS #### Point of Care testing ,Sodium [Moles/Vol]138 mmol/ETfyxcd067-485Fvc [facility] Physician GroupComment on above:Performed By: #### GLULS #### Point of Care testing ,Urea nitrogen [Mass/Vol]19 mg/dLNormal7-25The [facility] Physician GroupComment on above:Performed By: #### GLULS #### Point of Care testing ,Calcium [Mass/volume] in Serum or PlasmaOrdered By: Mikel Root on 23-02-5711Tljscxv [Mass/Vol]Calcium [Mass/volume] in Serum or Plasma8.6-10.3 [facility] EastCarbon dioxide, total [Moles/volume] in Serum or PlasmaOrdered By: Mikel Padillaed on 36-16-1383DF1 [Moles/Vol]Carbon dioxide, total [Moles/volume] in Serum or Muxvgo27.0-31.0[facility] EastChloride [Moles/volume] in Serum or PlasmaOrdered By: Mikel Padillaed on 89-99-7581Rcycsffv [Moles/Vol]Chloride [Moles/volume] in Serum or Zlsndo62-517KjuxpzsbvRegency Hospital Cleveland EastCreatinine [Mass/volume] in Serum or PlasmaOrdered By: Mikel Roto on 86-22-5163Txjcvlbsvy [Mass/Vol] Creatinine [Mass/volume] in Serum or Plasma0.70-1.30[facility] EastGlucose Glucometer (BldC) [Mass/Vol]Ordered By: Mikel Root on 23-49-2990Rcmoogd [Mass/Vol]Capillary blood glucose measurement by glucometer (mass/volume)[facility] EastComment on above:Random Glucose Reference Range is dependent on time and content of last meal. Glucose of more than 200 mg/dL in a nonstressed, ambulatory subject supports the diagnosis of Diabetes Mellitus.Glucose Poct Glucometerson 74-96-3020Mnxdpzb [Mass/Vol]87 mg/dLNoMission Hospital McDowell Physician GroupComment on above:Result Comment: Random Glucose Reference Range is dependent on time and content of last meal. Glucose of more than 200 mg/dL in a nonstressed, ambulatory subject supports the diagnosis of Diabetes Mellitus. PERFORMED BY: [place] [address] [place] [address] PATHOLOGIST CLAY ROASTER ANDRE PERALTA M.D.Performed By: #### GLULS #### Point of Care testing ,Glucose [Mass/volume] in Serum or PlasmaOrdered By: Mikel Root on 01-97-5785Otnlcco [Mass/Vol]Glucose [Mass/volume] in Serum or Hhlmxc76-015 [facility] EastComment on above:ADA recommended reference rangeRandom Glucose Reference Range is dependent on time and content of last meal. Glucose of more than 200 mg/dL in a nonstressed, ambulatory subject supports the diagnosisof Diabetes Mellitus.No Panel InformationOrdered By: Mikel Root on 39-98-6669Sieyseyai GFR (CKD-EPI)> 60.0 mL/MinRegency Hospital Cleveland EastPharmacy Creatinine Clearance (Chem60.91[facility] EastPotassium [Moles/volume] in Serum or PlasmaOrdered By: Mikel Root on 34-22-4025Jfnrkqmtg [Moles/Vol]Potassium [Moles/volume] in Serum or Plasma3.5-5.1FSt. John of God Hospitalerum or plasma anion gap determinationOrdered By: Mikel Root on 28-47-5925Slzjc gap [Moles/Vol]Serum or plasma anion gap determination6.0-15.0 Memorial Hospitalodium [Moles/volume] in Serum or PlasmaOrdered By: Mikel Root on 26-95-5590Dhquaz [Moles/Vol]Sodium [Moles/volume] in Serum or Rpqntz675-629SnsgezqpnRegency Hospital Cleveland EastUrea nitrogen [Mass/volume] in Serum or PlasmaOrdered By: Mikel Root on 70-35-2313Qnle nitrogen [Mass/Vol]Urea nitrogen [Mass/volume] in Serum or Plasma 7-25[facility] EastX-ray reportOrdered By: Sofia Rosales on 34-83-6292Couls reportKETTERING HEALTH [place] [address] XRay Report Signed Patient: Manolo Roche MR#: [id number] : 1935 Acct:[id number] Age/Sex: 89 / M ADM Date: 4 Loc: Room: [address] [place] [address] Type: ADM IN Attending Dr: Abdulaziz Root [...] Sofia Rosales M.D.05/25/2024 8:13 AM Dictation Location: [place] [address] Transcribed By: [facility] 05/25/[address] Dictated By: Sofia Rosales MD 05/25/24809 Signed By: 05/25/24812 [facility] Work Phone: XR chest 2V*on 77-64-4318GH chest 2V*[facility] [place] [address] XRay Report Signed Patient: Manolo Roche MR#: [id number] : 1935 Acct:[id number] Age/Sex: 89 / M ADM Date: 05/24/24 Loc: Room: [address] [place] [address] Type: ADM IN Attending Dr: Abdulaziz Root [...] Sofia Rosales M.D.05/25/2024 8:13 AM Dictation Location: [place] [address] Transcribed By: [facility] 05/25/[address] Dictated By: Sofia Rosales MD 05/25/24809 Signed By: 05/25/248[address]Tyler HospitalBasic Metabolic Panelon 69-13-9357Ymakx gap [Moles/Vol]11.9 mmol/LNormal6.0-15.0The [facility] Rehabilitation HospitalComment on above:Performed By: #### BMP ####[place] [address] [place] [address] USACalcium [Mass/Vol]8.8 mg/dLNormal 8.6-10.3The [facility] Physician [facility] CenterComment on above:Performed By: #### BMP ####[address] [address] [place] Chloride [Moles/Vol]103 mmol/GFtrbhr31-769Qui [facility] Physician [facility] CenterComment on above:Performed By: #### BMP ####[address] [address] USACO2 [Moles/Vol]27.0 mmol/ONrmfja35.0-31.0The [facility] Rehabilitation HospitalComment on above:Performed By: #### BMP ####[place] [id number] [place] [address] USACreatinine [Mass/Vol] 0.82 mg/dLNormal0.70-1.30The [facility] Physician [facility] CenterComment on above:Performed By: #### BMP ####[place] [id number] USACreatinine Clr Calc Lvtwmkrq78.04NormalThe [facility] Comment on above:Result Comment: PERFORMED BY: [facility] [id number] PATHOLOGIST CLAY ROASTER ANDRE PERALTA M.D.Performed By: #### BMP ####[place] [id number] USAGFR/1.73 sq M.predicted MDRD (S/P/Bld) [Vol rate/Area]mL/min/{1.73_m2}NormalThe [facility] Comment on above:Performed By: #### BMP ####[place] [id number] USAGlucose [Mass/Vol]108 mg/iQYtmp51-021Cne [facility] Physician GroupComment on above:Result Comment: Random Glucose Reference Range is dependent on time and content of last meal. Glucose of more than 200 mg/dL in a nonstressed, ambulatory subject supports the diagnosis of Diabetes Mellitus. ADA recommended reference rangePerformed By: #### BMP ####[place] [id number] USAPotassium [Moles/Vol]3.9 mmol/LNormal3.5-5.1The [facility] Physician GroupComment on above:Performed By: #### BMP ####[place] [address] USASodium [Moles/Vol]138 mmol/YIiufsp114-367Jkq [facility] Physician GroupComment on above:Performed By: #### BMP ####[place] [address] USAUrea nitrogen [Mass/Vol]22 mg/dLNormal7-25The [facility] Physician GroupComment on above:Performed By: #### BMP ####[address] [address] USACoagulation Profileon 07-87-8400dRTU Coag (Bld) [Time]30.1 cCkikhq10.1-36.5The [facility] Physician GroupComment on above:Result Comment: A hematocrit value greater than 55% may lead to inaccurate results in coagulation testing. Patients having hematocrit values >55% require a special collection tube for coagulation studies. Please contact the laboratory at [phone] for redraw instructions. PERFORMED BY: [facility] [address] [place] [address] PATHOLOGIST CLAY ROASTER ANDRE PERALTA M.D.Performed By: #### PP ####[place] [address] [place] [address] USAINR Coag (PPP) [Relative time]1.1 {INR}NormalThe [facility] Physician [facility] Comprehensive Health CenterComment on above:Result Comment: INR Therapeutic Range [...] valves: 3 - 4.5Performed By: #### PP ####[address] [address] USAPT Coag (PPP) [Time]12.9 sNormal9.0-12.9The [facility] Physician [facility] Health CenterComment on above: Result Comment: A hematocrit value greater than 55% may lead to inaccurate results in coagulation testing. Patients having hematocrit values >55% require a special collection tube for coagulation studies. Please contact the laboratory at [phone] for redraw instructions.Performed By: #### PP ####[address] [place] [address] USAGlucose Poct Glucometerson 06-97-5079Gkwfrxo [Mass/Vol]68 mg/dLNormPikes Peak Regional HospitalComment on above:Result Comment: Random Glucose Reference Range is dependent on time and content of last meal. Glucose of more than 200 mg/dL in a nonstressed, ambulatory subject supports the diagnosis of Diabetes Mellitus. PERFORMED BY: [facility] [address] [place] [address] PATHOLOGIST CLAY ROASTER ANDRE PERALTA M.D.Performed By: #### GLULS #### Point of Care testing ,Glucose [Mass/Vol]87 mg/dLOrlando Health South Lake Hospital Physician GroupComment on above: Result Comment: Random Glucose Reference Range is dependent on time and content of last meal. Glucose of more than 200 mg/dL in a nonstressed, ambulatory subject supports the diagnosis of Diabetes Mellitus. PERFORMED BY: [address] [place] [address] PATHOLOGIST CLAY ROASTER ANDRE PERALTA M.D.Performed By: #### GLULS #### Point of Care testing ,Glucose [Mass/Vol]100 mg/dLOrlando Health South Lake Hospital Physician GroupComment on above: Result Comment: Random Glucose Reference Range is dependent on time and content of last meal. Glucose of more than 200 mg/dL in a nonstressed, ambulatory subject supports the diagnosis of Diabetes Mellitus. PERFORMED BY: [address] [address] PATHOLOGIST CLAY ROASTER ANDRE PERALTA M.D.Performed By: #### GLULS #### Point of Care testing ,Dhqprfl8GgjljtIrk [facility] Physician GroupComment on above:Result Comment: Glu2: Result Not Confirmed PERFORMED BY: [address] [place] [address] PATHOLOGIST CLAY ROASTER ANDRE PERALTA M.D.Performed By: #### GLULS ####Point of Care testing, Glucose [Mass/Vol]55 mg/dLOff scale [facility] Physician GroupComment on above:Result Comment: Random Glucose Reference Range is dependent on time and content of last meal. Glucose of more than 200 mg/dL in a nonstressed, ambulatory subject supports the diagnosis of Diabetes Mellitus.Performed By: #### GLULS ####Point of Care testing,INR in Platelet poor plasma by Coagulation assayOrdered By: Mikel Root on 29-57-1093ODI Coag (PPP) [Relative time]INR in Platelet poor [...] 4.5No Panel InformationOrdered By: Mikel Root on 27-74-9132Mujiwsz Glucose CommentSee commentRegency Hospital Cleveland EastComment on above:Glu2: Result Not ConfirmedProthrombin time (PT)Ordered By: Mikel Root on 09-41-7265BB Coag (PPP) [Time]Prothrombin time (PT)9.0-12.9Reg[facility] Hospital Cleveland EastComment on above:A hematocrit value greater than 55% may lead to inaccurate results in coagulation testing. Patientshaving hematocrit values >55% require a special collection tube for coagulation studies. Please contact the laboratory at [phone] for redraw instructions.aPTT in Platelet poor plasma by Coagulation assayOrdered By: Mikel Root on 99-78-0007uQKI Coag (PPP) [Time]Activated partial thromboplastin time (aPTT) in platelet poor plasma by coagulation a25.1-36.5FKettering Health – Soin Medical CenterComment on above:A hematocrit value greater than 55% may lead to inaccurate results in coagulation testing. Patientshaving hematocrit values >55% require a special collection tube for coagulation studies. Please contact the laboratory at [phone] for redraw instructions.Acanthocytes [Presence] in Blood by Light microscopyOrdered By: Mikel Root on 53-91-1120Jmglhzgenhac LM Ql (Bld)SlightRegency Hospital Cleveland EastAcanthocytes LM Ql (Bld)Acanthocytes [Presence] in Blood by Light microscopyRegency Hospital Cleveland EastAnisocytosis LM Ql (Bld) Ordered By: Mikel Root on 19-96-6440Rkzkvubugnbl Ql (Bld) Anisocytosis [Presence] in Blood by Light microscopyRegency Hospital Cleveland EastAnisocytosis [Presence] in Blood by Light microscopyOrdered By: Mikel Root on 63-59-5306Qylkhcrnuzgl Ql (Bld)SlightNormalRegency Hospital Cleveland EastComment on above:Performed By: #### BMP, DIFF CBC ####[facility] [address] [place] [address] USABasic Metabolic Panelon 43-93-1127NZJ/1.73 sq M.predicted MDRD (S/P/Bld) [Vol rate/Area]mL/min/{1.73_m2}NormalThe [facility] Physician GroupComment on above: Performed By: #### BMP, DIFF CBC ####[facility] [address] [place] [address] USABasophils Auto (Bld) [#/Vol]Ordered By: Mikel Root on 90-31-0832Vrpqnydgc (Bld) [#/Vol]N/[facility] HospitalBasophils (Bld) [#/Vol]Automated basophil countRegency Hospital Cleveland EastBasophils/100 WBC Auto (Bld)Ordered By: Mikel Root on 40-02-4753Aevplrwgb/100 WBC (Bld)N/[facility] Basophils/100 WBC (Bld)Automated basophil %[facility] Basophils/100 WBC Manual cnt (Bld)Ordered By: Mikel Root on 82-60-7495Kaitwkkep/100 WBC (Bld)Basophils/100 leukocytes in Blood by Manual count0K[facility] Medical CenterBasophils/100 leukocytes in Blood by Manual countOrdered By: Mikel Root on 01-44-1667Nilrxojsx/100 WBC (Bld)1 %Normal085 Glenn StreetComment on above:Performed By: #### BMP, DIFF CBC ####[facility] [place] [address] USACalcium [Mass/volume] in Serum or PlasmaOrdered By: Mikel Root on 24-09-9489Viqibnd [Mass/Vol]8.7 mg/dLNormal8.6-10.3FKettering Health – Soin Medical CenterComment on above:Result Comment: PERFORMED BY: [facility] [address] [place] [address] PATHOLOGIST CLAY ROASTER AIRAM MAST M.D.Performed By: #### BMP, DIFF CBC ####[facility] [address] [place] [address] USACalcium [Mass/Vol]Calcium [Mass/volume] in Serum or Plasma8.6-10.3FKettering Health – Soin Medical CenterCarbon dioxide, total [Moles/volume] in Serum or PlasmaOrdered By: Mikel Root on 46-61-8956GF2 [Moles/Vol]26.6 mmol/JPbxmuz63.0-31.0[facility] Hospital Cleveland EastComment on above:Performed By: #### BMP, DIFF CBC ####[address] [address] USACO2 [Moles/Vol]Carbon dioxide, total [Moles/volume] in Serum or Iefggr85.0-31.0 [facility] Cleveland EastChloride [Moles/volume] in Serum or Plasma Ordered By: Mikel Root on 79-51-5449Wtzemtda [Moles/Vol]95 mmol/L Hdh43-980MfzxksjjqRegency Hospital Cleveland EastComment on above:Performed By: #### BMP, DIFF CBC ####[address] [address] USAChloride [Moles/Vol]Chloride [Moles/volume] in Serum or AgqzixIqt93-509 [facility] Cleveland EastCreatinine [Mass/volume] in Serum or Plasma Ordered By: Mikel Root on 33-41-8203Obzuyyzurm [Mass/Vol]1.06 mg/dL Normal0.70-1.30[facility] Hospital Cleveland EastComment on above:Performed By: #### BMP, DIFF CBC ####[address] [place] [address] USACreatinine [Mass/Vol]Creatinine [Mass/volume] in Serum or Plasma 0.70-1.30[facility] Cleveland EastDiff and CBCon 14-05-9283Jjjmtqvhezsd SlightOrlando Health South Lake Hospital Physician GroupComment on above:Performed By: #### BMP, DIFF CBC ####[address] [address] USAHypochromasiaMarkedOrlando Health South Lake Hospital Physician GroupComment on above: Performed By: #### BMP, DIFF CBC ####[address] [address] USAMean Corpuscular HGB Conc32.2 g/dLLow32.5-35.6The [facility] Physician GroupComment on above:Performed By: #### BMP, DIFF CBC ####[address] [address] USA MicrocytosisSUNC Health Pardee Physician GroupComment on above:Performed By: #### BMP, DIFF CBC ####[address] [address] USAPlatelet EstimateNormalNormBaptist Health Fishermen’s Community Hospital Physician GroupComment on above:Performed By: #### BMP, DIFF CBC ####[address] [address] USAPlatelet Morphology NormalNoHCA Florida Capital Hospital Physician GroupComment on above:Result Comment: PERFORMED BY: [facility] [address] [place] [address] PATHOLOGIST CLAY ROASTER AIRAM MAST M.D.Performed By: #### BMP, DIFF CBC ####[address] [address] USAPoikilocytosisModerateOrlando Health South Lake Hospital Physician GroupComment on above:Performed By: #### BMP, DIFF CBC ####[address] [address] USA PolychromasiaSUNC Health Pardee Physician GroupComment on above:Performed By: #### BMP, DIFF CBC ####[facility] [address] [place] [address] USASchistocytesSloop Memorial Hospital Physician GroupComment on above:Performed By: #### BMP, DIFF CBC ####[facility] [address] [place] [address] USATarget CellsSloop Memorial Hospital Physician GroupComment on above:Performed By: #### BMP, DIFF CBC ####[facility] [address] [place] [address] USAECG 12 lead ECGon 83-52-9170DXJ 12 lead ECGKETTERING HEALTH MIAMISBURG Main Roundup [address] [place] [address] Electrocardiograph Report Signed Patient: Manolo Roche MR#: [id number] 353 : 1935 Acct:[id number] Age/Sex: 89 / M ADM Date: 05/16/24 Loc: Room: Type: [facility] Attending Dr: Abdulaziz Root MD Ordering Provider: [...] changes have occurred Confirmed by CONRAD OGLESBY [facility] ([id number]) on 05/16/2024 2:20:20 PM Referred By: Electronically Signed By: HARSH MARTINES MD FAC Transcribed By: MUS Signed By Harsh Martines MD, FACC 05/16/24 1420[facility] Physician GroupEosinophils Auto (Bld) [#/Vol] Ordered By: Mikel Root on 28-97-4362Pyvgiptqmsw (Bld) [#/Vol]N/A [facility] Cleveland EastEosinophils (Bld) [#/Vol]Automated eosinophil countRegency Hospital Cleveland EastEosinophils/100 WBC Auto (Bld)Ordered By: Mikel Root on 97-83-9705Bcskbmtlyrj/100 WBC (Bld)N/AFKettering Health – Soin Medical CenterEosinophils/100 WBC (Bld)Automated eosinophil %[facility] EastEosinophils/100 WBC Manual cnt (Bld)Ordered By: Mikel Root on 96-73-0263Maxhvxynifs/100 WBC (Bld)Eosinophils/100 leukocytes in Blood by Manual count1-[facility] Eosinophils/100 leukocytes in Blood by Manual countOrdered By: Mikel Root on 77-43-3322Remplaojtjy/100 WBC (Bld)2 %Normal1-[facility] Soin Medical CenterComment on above:Performed By: #### BMP, DIFF CBC ####[facility] [address] [place] [address] USAErythrocyte distribution width Auto (RBC) [Ratio]Ordered By: Mikel Root on 65-84-9186Ohyszevnvkk distribution width (RBC) [Ratio]Erythrocyte distribution width [Ratio] by Automated grmkuFlkq59.0-14.8[facility] Erythrocyte distribution width [Ratio] by Automated countOrdered By: Mikel Root on 82-06-0217Wqgoiayszvk distribution width (RBC) [Ratio]21.2 %High12.0-14.8Reg[facility] Cleveland EastComment on above:Performed By: #### BMP, DIFF CBC ####[facility] [address] [place], [place] [address] USAErythrocyte morphology finding [Identifier] in BloodOrdered By: Mikel Root on 26-14-7796AIL morphology finding Nom (Bld)RBC morphology [facility] Cleveland EastErythrocytes [#/volume] in Blood by Automated countOrdered By: Mikel Root on 98-66-0442AJN (Bld) [#/Vol]4.81 10*6/uLNormal3.90-5.60[facility] Cleveland EastComment on above: Performed By: #### BMP, DIFF CBC ####[facility] [address] [place] [address] USAGlucose [Mass/volume] in Serum or PlasmaOrdered By: Mikel Root on 73-38-5505Vijgksp [Mass/Vol]649 mg/dLOff scale high 70-100Reg[facility] Cleveland EastComment on above:Critical Result Called to and read [...] reference rangePerformed By: #### BMP, DIFF CBC ####[facility] [address] [place] [address] USAGlucose [Mass/Vol] Glucose [Mass/volume] in Serum or PlasmaCritically ujnj81-040ErmnvthuvRegency Hospital Cleveland EastComment on above:Critical Result Called to and read back by: DREW BUITRAGO at: 05/16/2024 13:51 by:TANIAADA recommended reference rangeRandom Glucose Reference Range is dependent on time and content of last meal. Glucose of more than 200 mg/dL in a nonstressed, ambulatory subject supports the diagnosis of Diabetes Mellitus.Hematocrit Auto (Bld) [Volume fraction]Ordered By: Mikel Root on 45-68-2833Qbexufgnsi (Bld) [Volume fraction]Hematocrit [Volume Fraction] of Blood by Automated riaqwRwk30.8-50.0[facility] Cleveland EastHematocrit [Volume Fraction] of Blood by Automated countOrdered By: Mikel Root on 72-58-2030Jjqiqsajsq (Bld) [Volume fraction]38.1 %Low38.8-50.0[facility] Cleveland EastComment on above:Performed By: #### BMP, DIFF CBC ####[facility] [address] [place] [address] USAHemoglobin [Mass/volume] in BloodOrdered By: Mikel Root on 49-22-3039Xxjjfprwbo (Bld) [Mass/Vol]12.3 g/dLLow13.0-17.0[facility] EastComment on above:Performed By: #### BMP, DIFF CBC ####[facility] [address] [place] [address] USAHemoglobin (Bld) [Mass/Vol]Hemoglobin [Mass/volume] in XntfcNqp95.0-17.0[facility] EastHypochromia LM Ql (Bld)Ordered By: Mikel Root on 28-34-5229Gyzoobvpzft Ql (Bld)MarkedRegency Hospital Cleveland EastHypochromia Ql (Bld)Hypochromia [Presence] in Blood by Light microscopyRegency Hospital Cleveland EastLeukocytes [#/volume] corrected for nucleated erythrocytes in Blood by Automated counOrdered By: Mikel Root on 73-90-7566JKA corrected for nucl RBC Auto (Bld) [#/Vol]5.0 10*3/uL4.1-10.5FKettering Health – Soin Medical CenterWBC corrected for nucl RBC Auto (Bld) [#/Vol]Leukocytes [#/volume] corrected for nucleated erythrocytes in Blood by Automated coun4.1-10.5 [facility] EastLeukocytes [#/volume] in Blood by Automated countOrdered By: Mikel Root on 73-06-7768PCA (Bld) [#/Vol]5.0 10*3/uLNormal4.1-10.5FKettering Health – Soin Medical CenterComment on above:Performed By: #### BMP, DIFF CBC ####[facility] [address] [place] [address] USALymphocytes Auto (Bld) [#/Vol]Ordered By: Mikel Root on 05-92-8809Qdxugwjwosv (Bld) [#/Vol]N/AFKettering Health – Soin Medical CenterLymphocytes (Bld) [#/Vol]Lymphocytes [#/volume] in Blood by Automated countRegency Hospital Cleveland EastLymphocytes/100 WBC Auto (Bld) Ordered By: Mikel Root on 37-24-5360Lpciqfezgzh/100 WBC (Bld)N/A [facility] EastLymphocytes/100 WBC (Bld)Lymphocytes/100 leukocytes in Blood by Automated countRegency Hospital Cleveland East Lymphocytes/100 WBC Manual cnt (Bld)Ordered By: Mikel Root on 52-39-6861Oyvhekcsziv/100 WBC (Bld)Lymphocytes/100 leukocytes in Blood by Manual brjak06-49HudbrqaanRegency Hospital Cleveland EastLymphocytes/100 leukocytes in Blood by Manual countOrdered By: Mikel Root on 98-26-2565Xoqsmrjnpda/100 WBC (Bld)23 %Hmijje16-85LtcwnlkyjRegency Hospital Cleveland EastComment on above: Performed By: #### BMP, DIFF CBC ####[facility] [address] [place] [address] [facility] Auto (RBC) [Entitic mass]Ordered By: Mikel Root on 83-58-4045HCX (RBC) [Entitic mass]MCH [Entitic mass] by Automated sbhfaZrc57.5-35.2FDetwiler Memorial Hospital [Entitic mass] by Automated countOrdered By: Mikel Root on 92-27-8961FSI (RBC) [Entitic mass]25.5 pgLow27.5-35.2FKettering Health – Soin Medical CenterComment on above:Performed By: #### BMP, DIFF CBC ####[facility] [address] [place] [address] [facility] Auto (RBC) [Mass/Vol]Ordered By: Mikel Root on 37-36-6612VUUZ (RBC) [Mass/Vol]32.2 g/dLLow32.5-35.6 [facility], Cancer CenterHC (RBC) [Mass/Vol]MCHC [Mass/volume] by Automated vvzixOao49.5-35.6FMagruder HospitalV Auto (RBC) [Entitic vol]Ordered By: Mikel Root on 46-53-9673FWD (RBC) [Entitic vol]MCV [Entitic volume] by Automated heccpRbc68.5-101Ohio[facility] G[facility] MD, Cancer CenterV [Entitic volume] by Automated countOrdered By: Mikel Root on 46-27-6114QPQ (RBC) [Entitic vol]79.2 fLLow83.5-101[facility] Cleveland EastComment on above:Performed By: #### BMP, DIFF CBC ####[place] [address] USAManual blood segmented neutrophils/100 leukocytesOrdered By: Mikel Root on 43-62-9295Mlwjurcko neutrophils/100 WBC (Bld)67 %Bobutb29-05WwgvfbqmwRegency Hospital Cleveland EastComment on above:Performed By: #### BMP, DIFF CBC ####[place] [address] USAMicrocytes LM Ql (Bld)Ordered By: Mikel Root on 06-16-4330Qnaxtksrul Ql (Bld)Slight [facility] Cleveland EastMicrocytes Ql (Bld)Microcytes [Presence] in Blood by Light microscopyRegency Hospital Cleveland EastMonocytes Auto (Bld) [#/Vol]Ordered By: Mikel Root on 93-79-7090Vdzolqnne (Bld) [#/Vol] N/AFKettering Health – Soin Medical CenterMonocytes (Bld) [#/Vol]Automated blood monocyte countRegency Hospital Cleveland EastMonocytes/100 WBC Auto (Bld) Ordered By: Mikel Root on 51-79-5881Upbasavlh/100 WBC (Bld)N/A [facility] EastMonocytes/100 WBC (Bld)Automated monocyte % [facility] EastMonocytes/100 WBC Manual cnt (Bld)Ordered By: Mikel Root on 09-34-6308Obrbtyjde/100 WBC (Bld)Monocytes/100 leukocytes in Blood by Manual count2-[facility] Monocytes/100 leukocytes in Blood by Manual countOrdered By: Mikel Root on 00-07-4845Vsvuvxapc/100 WBC (Bld)8 %Normal2-[facility] Cleveland EastComment on above:Performed By: #### BMP, DIFF CBC ####[facility] [place] [address] USANeutrophils Auto (Bld) [#/Vol]Ordered By: Mikel Root on 61-23-2274Hufpgqsblgu (Bld) [#/Vol]N/[facility] HospitalNeutrophils (Bld) [#/Vol]Neutrophils [#/volume] in Blood by Automated countRegency Hospital Cleveland East Neutrophils/100 WBC Auto (Bld)Ordered By: Mikel Root on 05-16-2024 Neutrophils/100 WBC (Bld)N/[facility] HospitalNeutrophils/100 WBC (Bld)Automated neutrophil %[facility] EastNo Panel InformationOrdered By: Mikel Root on 97-40-8601Tjdrennpy GFR (CKD-EPI)> 60.0 mL/MinRegency Hospital Cleveland EastPharmacy Creatinine Clearance (ChemN/[facility] County HospitalNucleated erythrocytes [Presence] in Blood by Automated countOrdered By: Mikel Root on 20-27-3684Gxuxeonla RBC Auto Ql (Bld)N/[facility] Nucleated RBC Auto Ql (Bld)Nucleated erythrocytes [Presence] in Blood by Automated countRegency Hospital Cleveland EastPlatelet adequacy [Presence] in Blood by Light microscopyOrdered By: Mikel Root on 05-16-2024 Platelets LM Ql (Bld)NormalNoGreen Cross HospitalPlatelets LM Ql (Bld)Platelet adequacy [Presence] in Blood by Light microscopyNoGreen Cross HospitalPlatelet mean volume Auto (Bld) [Entitic vol]Ordered By: Mikel Root on 04-83-2789Dvzotzae mean volume (Bld) [Entitic vol] Platelet mean volume [Entitic volume] in Blood by Automated countHigh6.6-10.1 [facility] Cleveland EastPlatelet mean volume [Entitic volume] in Blood by Automated countOrdered By: Mikel Root on 10-45-0285Nobxbynb mean volume (Bld) [Entitic vol]11.3 fLHigh6.6-10.1FKettering Health [facility] Center Comment on above:Result Comment: PERFORMED BY: [facility] [address] [facility] [place] [id number] PATHOLOGIST CLAY ROASTER AIRAM MAST M.D.Performed By: #### BMP, DIFF CBC ####[facility] [place] [address] USAPlatelet morphology finding [Identifier] in BloodOrdered By: Mikel Root on 19-89-6926Uiyodawl morphology finding Nom (Bld)NormalNorwalk Memorial Hospital Platelet morphology finding Nom (Bld)Platelet morphology finding [Identifier] in BloodNoGreen Cross HospitalPlatelets Auto (Bld) [#/Vol]Ordered By: Mikel Root on 56-68-8525Lwdbeixts (Bld) [#/Vol]Platelets [#/volume] in Blood by Automated iugdz840-030[address] Platelets [#/volume] in Blood by Automated countOrdered By: Mikel Root on 28-50-8352Oeppwsoqp (Bld) [#/Vol]249 10*3/dDBvuidw470-048EnlfwhtktRegency Hospital Cleveland EastComment on above:Performed By: #### BMP, DIFF CBC ####[facility] [address] [place] [address] [facility] Poikilocytosis [Presence] in Blood by Light microscopyOrdered By: Mikel Root on 42-95-6138Lwqlpkzcwkrprp LM Ql (Bld)ModerateRegency Hospital Cleveland EastPoikilocytosis LM Ql (Bld)Poikilocytosis [Presence] in Blood by Light microscopyRegency Hospital Cleveland EastPolychromasia [Presence] in Blood by Light microscopyOrdered By: Mikel Root on 05-16-2024 Polychromasia LM Ql (Bld)SlightRegency Hospital Cleveland EastPolychromasia LM Ql (Bld)Polychromasia [Presence] in Blood by Light microscopyRegency Hospital Cleveland EastPotassium [Moles/volume] in Serum or PlasmaOrdered By: Mikel Root on 65-12-5838Ycuzqunwi [Moles/Vol]5.4 mmol/LHigh3.5-5.1 [facility] Cleveland EastComment on above:Performed By: #### BMP, DIFF CBC ####[facility] Potassium [Moles/Vol]Potassium [Moles/volume] in Serum or PlasmaHigh3.5-5.1 [facility] Cleveland EastRBC Auto (Bld) [#/Vol]Ordered By: Mikel Root on 01-73-9565FNN (Bld) [#/Vol]Erythrocytes [#/volume] in Blood by Automated count3.90-5.60[facility] Cleveland EastRBC morphologyOrdered By: Mikel Root on 73-72-6448NRE morphology finding Nom (Bld)N/A Memorial Hospitalchistocytes [Presence] in Blood by Light microscopyOrdered By: Mikel Root on 28-17-2589Ghbrprreiplr LM Ql (Bld)[facility]erm[facility] Hospitalchistocytes LM Ql (Bld)Schistocytes [Presence] in Blood by Light microscopyRegency Hospital Cleveland East Segmented neutrophils/100 WBC Manual cnt (Bld)Ordered By: Mikel Root on 62-15-2771Xtyrxezfq neutrophils/100 WBC (Bld)Manual blood segmented neutrophils/100 daijhbtoww65-32FezfsospiMemorial Hospitalerum or plasma anion gap determinationOrdered By: Mikel Root on 84-30-1163Ekjkt gap [Moles/Vol]11.8 mmol/LNormal6.0-15.0[facility] Cleveland EastComment on above:Performed By: #### BMP, DIFF CBC ####[facility] [id number] [place] [address] USAAnion gap [Moles/Vol] Serum or plasma anion gap determination6.0-15.0[facility] Sodium [Moles/volume] in Serum or PlasmaOrdered By: Mikel Root on 34-50-1480Wnmurt [Moles/Vol]128 mmol/TDgd651-495TbzsbqncuRegency Hospital Cleveland EastComment on above:Performed By: #### BMP, DIFF CBC ####[address] [address] USASodium [Moles/Vol]Sodium [Moles/volume] in Serum or NjsyrvAcv264-870JtrnmjtweRegency Hospital [facility] East Target cellsOrdered By: Mikel Root on 45-98-0163Paeyhk cells LM Ql (Bld)SlightRegency Hospital Cleveland EastTarget cells [Presence] in Blood by Light microscopyOrdered By: Mikel Root on 40-83-1054Chiwyq cells LM Ql (Bld)Target cellsRegency Hospital Cleveland EastUrea nitrogen [Mass/volume] in Serum or PlasmaOrdered By: Mikel Root on 51-96-7351Hgnp nitrogen [Mass/Vol]21 mg/dLNormal7-25[facility] EastComment on above:Performed By: #### BMP, DIFF CBC ####[facility] [id number] [place] [address] [facility] MEDICAL CENTERUrea nitrogen [Mass/Vol]Urea nitrogen [Mass/volume] in Serum or Plasma02-02[facility] WBC Auto (Bld) [#/Vol]Ordered By: Mikel Root on 35-76-6382BRP (Bld) [#/Vol]Leukocytes [#/volume] in Blood by Automated count4.1-10.5FKettering Health – Soin Medical Center36on [id number]. Chirag Merritt's recommendation for an EGD was [...] initially recommended. Best regards, Dr. Taylor of [facility]36on [phone] from Dr. Marie Tejeda's office (Internal Medicine) called to make sure that a message had been received to Dr. Baerd regarding this patient and concerns Dr. Tejeda has regarding the patient having an EGD to confirm resolution of H. Pylori. This technical document writer could not find any message in chart or in multimedia assistant, so this message was created. The following [...] A note will be sent to the power switchboard operator to discuss the possibility of using a stool study instead of a biopsy to avoid disturbing the scarred area. Please advise and respond to Dr. Tejeda through this telephone call note or via a letter, as to what Dr. Beard's recommendation is regarding the above inquiry. Thank you.[facility] Medical CenterTelephoneon [id number] Manolo Roche 1935 M Date Provider Department Center 04/26/2024 [id number]-HKTQMGTIM CAMPBELL MP [facility] No family history on fileNormalUniversity of East [facility] Hospital And ClinicsHbA1c (Bld) [Mass fraction]on 01-36-3689COUY HealthcareLaboratory - Hematology and Cell countson 72-01-0844CpR3u (Bld) [Mass fraction]9.8 %[facility]OM[facility] HealthcareOffice Visiton 80-07-8833Klomaz-up [id number] Manolo Roche 1935 M Date Provider Department Center 04/05/2024 Nadeen-PATRICK BEARD [facility] No family history on file Level of Service:01040 [place] OFFICE/OUTPATIENT NEW LOW MDM 30 MINUTES (GC) Reason for Visit and Comments: gastrointestinal ulcer [Other] - Pt says he's supposed to receive a procedure.[facility] Medical CenterECH echo transthoracicon 12-53-4241DBY echo transthoracicKETTERING HE[place] [address] Echocardiogram Signed Patient: Manolo Roche MR#: [id number] : 1935 Acct:[id number] Age/Sex: 88 / M ADM Date: 03/09/24 Loc: Room: Type: [facility] Attending Dr: Anat Perez MD Ordering Provider: Anat Perez MD Date of Service: 03/09/24 ECH/ECH echo transthoracic: I25.10 - Atherosclerotic heart disease of [place] coronary... Copies to: Anat Perez MD Manolo Westfall Patient Location: : 1935 Gender: Male (MM/DD/YYYY) Age: 88 Years Ordering Physician: Anat Perez Height: 70 in Weight: 140.875 lb Performed By: MARK Hearn BSA: 1.80 m2 BP: 144 / 83 mmHg HR: 53 bpm Reason For Study: I25.10 - Atherosclerotic heart disease of [place] coronary... History: HTN, DM, Former Smoker, CAD, [...] 03/09/244 Signed By: Anat Perez MD 03/09/24 2353[facility] Erythrocyte distribution width Auto (RBC) [Ratio]Ordered By: Warren Gross on 92-62-8175Aunzhzjtsey distribution width (RBC) [Ratio]20.0 %High12.0-14.8 [facility] EastFerritin [Mass/volume] in Serum or Plasma Ordered By: Anat Perez on 69-71-1706Lhabjhay [Mass/Vol]19.8 ng/mLLow 23.9-336.2FKettering Health – Soin Medical CenterHematocrit Auto (Bld) [Volume fraction]Ordered By: Warren Gross on 07-61-1911Gwxdmxmwnm (Bld) [Volume fraction]26.7 %Low38.8-50.0[facility] EastHemoglobin [Mass/volume] in BloodOrdered By: Warren Gross on 97-68-9285Cnrqlcdicd (Bld) [Mass/Vol]8.8 g/dLLow13.0-17.0[facility] EastIron [Mass/volume] in Serum or PlasmaOrdered By: Anat Perez on 85-77-7719Gbby [Mass/Vol]20 ug/uEFya64-996LfquhnynhRegency Hospital Cleveland EastIron binding capacity [Mass/volume] in Serum or PlasmaOrdered By: Anat Perez on 02-16-2024 Iron binding capacity [Mass/Vol]402 ug/hR443-445TnkfffnekRegency Hospital Cleveland EastIron saturation [Mass Fraction] in Serum or PlasmaOrdered By: Anat Perez on 94-96-7505Dwly saturation [Mass fraction]5.0 %Ifx76-65QdkjgqkceRegency Hospital Cleveland EastLeukocytes [#/volume] corrected for nucleated erythrocytes in Blood by Automated counOrdered By: Warren Gross on 97-09-3857WPD corrected for nucl RBC Auto (Bld) [#/Vol]5.8 10*3/uL4.1-10.5FDetwiler Memorial Hospital Auto (RBC) [Entitic mass]Ordered By: Warren Gross on 76-82-5598LEO (RBC) [Entitic mass]26.8 pgLow27.5-35.2FMagruder HospitalHC Auto (RBC) [Mass/Vol]Ordered By: Warren Gross on 16-87-4810UKCG (RBC) [Mass/Vol]32.9 g/dL32.5-35.6FMagruder HospitalV Auto (RBC) [Entitic vol]Ordered By: Warren Gross on 35-47-3729KKE (RBC) [Entitic vol]81.4 fLLow83.5-101[facility] EastPlatelet mean volume Auto (Bld) [Entitic vol]Ordered By: Warren Gross on 43-20-8921Nkummnot mean volume (Bld) [Entitic vol]10.3 fLHigh6.6-10.1FKettering Health – Soin Medical CenterPlatelets Auto (Bld) [#/Vol]Ordered By: Warren Gross on 09-60-6703Zpwfqwwxr (Bld) [#/Vol]304 10*3/yK061-711PxxudyoviRegency Hospital Cleveland EastRBC Auto (Bld) [#/Vol]Ordered By: Warren Gross on 89-72-6258SIS (Bld) [#/Vol]3.28 10*6/uLLow3.90-5.60[facility] EastTransferrin [Mass/volume] in Serum or PlasmaOrdered By: Anat Perez on 81-56-6399Yxbdstjbolr [Mass/Vol]287 mg/lS404-493OrbrvdktkRegency Hospital Cleveland EastErythrocyte distribution width Auto (RBC) [Ratio]Ordered By: Warren Gross on 98-83-8857Mwwlfqdxijs distribution width (RBC) [Ratio]19.9 % High12.0-14.8[facility] EastHematocrit Auto (Bld) [Volume fraction]Ordered By: Warren Gross on 11-18-1608Pajwgjxigw (Bld) [Volume fraction]26.4 %Low38.8-50.0[facility] EastHemoglobin [Mass/volume] in BloodOrdered By: Warren Gross on 75-04-6504Qwgoioicfv (Bld) [Mass/Vol]8.7 g/dLLow13.0-17.0[facility] EastLeukocytes [#/volume] corrected for nucleated erythrocytes in Blood by Automated coun Ordered By: Warren Gross on 51-81-2668OOA corrected for nucl RBC Auto (Bld) [#/Vol]7.1 10*3/uL4.1-10.5FDetwiler Memorial Hospital Auto (RBC) [Entitic mass]Ordered By: Warren Gross on 02-32-6449LOZ (RBC) [Entitic mass]26.8 pgLow27.5-35.2FWayne Hospital Auto (RBC) [Mass/Vol]Ordered By: Warren Gross on 48-89-3460HNVI (RBC) [Mass/Vol]32.9 g/dL32.5-35.6FKettering Health – Soin Medical CenterMCV Auto (RBC) [Entitic vol]Ordered By: Warren Gross on 86-45-2859EJE (RBC) [Entitic vol]81.6 fLLow83.5-101[facility] EastPlatelet mean volume Auto (Bld) [Entitic vol]Ordered By: Warren Gross on 34-53-0595Ocmmsrfr mean volume (Bld) [Entitic vol]9.6 fL6.6-10.1FKettering Health – Soin Medical CenterPlatelets Auto (Bld) [#/Vol]Ordered By: Warren Gross on 43-65-0433Nzzcozdak (Bld) [#/Vol]278 10*3/nS152-067QxdhgxpsgRegency Hospital Cleveland EastRBC Auto (Bld) [#/Vol]Ordered By: Warren Gross on 23-13-9883MNF (Bld) [#/Vol]3.23 10*6/uLLow3.90-5.60[facility] EastErythrocyte distribution width Auto (RBC) [Ratio]Ordered By: Warren Gross on 02-11-2024 Erythrocyte distribution width (RBC) [Ratio]20.4 %High12.0-14.8[facility] EastHematocrit Auto (Bld) [Volume fraction]Ordered By: Warren Gross on 41-02-5744Xnhannguem (Bld) [Volume fraction]26.8 %Low38.8-50.0 [facility] EastHemoglobin [Mass/volume] in BloodOrdered By: Warren Gross on 09-23-7420Jzmiyiijea (Bld) [Mass/Vol]8.8 g/dLLow13.0-17.0 [facility] EastLeukocytes [#/volume] corrected for nucleated erythrocytes in Blood by Automated counOrdered By: Warren Gross on 12-38-2215TQO corrected for nucl RBC Auto (Bld) [#/Vol]6.4 10*3/uL4.1-10.5FKettering Health [facility] Soin Medical CenterMCH Auto (RBC) [Entitic mass]Ordered By: Warren Gross on 19-67-4038FDU (RBC) [Entitic mass]26.8 pgLow27.5-35.2FKettering Health [facility] So[facility] Medical CenterMC Auto (RBC) [Mass/Vol]Ordered By: Warren Gross on 93-88-3434QIRE (RBC) [Mass/Vol]32.8 g/dL32.5-35.6FKettering Health – Soin Medical CenterMCV Auto (RBC) [Entitic vol]Ordered By: Warren Gross on 89-63-7916XNA (RBC) [Entitic vol]81.9 fLLow83.5-101[facility] EastPlatelet mean volume Auto (Bld) [Entitic vol]Ordered By: Warren Gross on 54-89-0807Dsgyuepf mean volume (Bld) [Entitic vol]10.2 fLHigh6.6-10.1FKettering Health – Soin Medical CenterPlatelets Auto (Bld) [#/Vol]Ordered By: Warren Gross on 97-19-8031Eeajtsfrn (Bld) [#/Vol]228 10*3/zP867-687NbthgpduwRegency Hospital Cleveland EastRBC Auto (Bld) [#/Vol]Ordered By: Warren Gross on 82-45-4306WVZ (Bld) [#/Vol]3.27 10*6/uLLow3.90-5.60[facility] EastBasophils Auto (Bld) [#/Vol]Ordered By: Sushant Cordon on 60-34-9172Muljhkljs (Bld) [#/Vol]0.1 10*3/uL0.0-0.2FK[facility] So[facility] Medical CenterBasophils/100 WBC Auto (Bld)Ordered By: Sushant Cordon on 64-71-8428Dtfpttixn/100 WBC (Bld)1.3 %.[facility] EastCalcium [Mass/volume] in Serum or PlasmaOrdered By: Sushant Cordon on 35-01-4881Sojpgly [Mass/Vol]8.1 mg/dLLow8.6-10.3FKet[facility] Soin Medical CenterCarbon dioxide, total [Moles/volume] in Serum or PlasmaOrdered By: Sushant Cordon on 50-11-8712QW8 [Moles/Vol]29.6 mmol/L21.0-31.0[facility] EastChloride [Moles/volume] in Serum or PlasmaOrdered By: Sushant Cordon on 63-82-2269Gxcjcnoj [Moles/Vol]102 mmol/G38-379AbvhurzwmRegency Hospital Cleveland EastCreatinine [Mass/volume] in Serum or PlasmaOrdered By: Sushant Cordon on 98-23-0276Imbbcecyyx [Mass/Vol]0.82 mg/dL0.70-1.30 [facility] EastEosinophils Auto (Bld) [#/Vol]Ordered By: Sushant Cordon on 68-11-3580Lwmitmsrmyv (Bld) [#/Vol]0.4 10*3/uL0.0-0.45 [facility] EastEosinophils/100 WBC Auto (Bld)Ordered By: Sushant Cordon on 56-83-9077Heidfvnwyin/100 WBC (Bld)7.1 %.[facility] EastErythrocyte distribution width Auto (RBC) [Ratio]Ordered By: Sushant Cordon on 92-47-3507Aiabockcxun distribution width (RBC) [Ratio]19.3 %High12.0-14.8[facility] EastGlucose Glucometer (BldC) [Mass/Vol]Ordered By: Warren Gross on 47-57-2485Mddgodf [Mass/Vol]382 mg/dLRegency Hospital Cleveland EastComment on above:Random Glucose Reference Range is dependent on time and content of last meal. Glucose of more than 200 mg/dL in a nonstressed, ambulatory subject supports the diagnosis of Diabetes Mellitus.Glucose [Mass/volume] in Serum or PlasmaOrdered By: Sushant Cordon on 05-65-4844Tspwyew [Mass/Vol]320 mg/hOQima78-059KzqcqfngiRegency Hospital Cleveland EastComment on above:Delta: 171 on 02/07/24-620ADA recommended reference rangeRandom Glucose Reference Range is dependent on time and content of last meal. Glucose of more than 200 mg/dL in a nonstressed, ambulatory subj ect supports the diagnosis of Diabetes Mellitus.Hematocrit Auto (Bld) [Volume fraction]Ordered By: Sushant Cordon on 06-19-1199Amuqheiyaf (Bld) [Volume fraction]25.8 %Low38.8-50.0[facility] EastHemoglobin [Mass/volume] in BloodOrdered By: Sushant Cordon on 88-65-8164Pnflmqurmt (Bld) [Mass/Vol]8.8 g/dLLow13.0-17.0[facility] EastLeukocytes [#/volume] corrected for nucleated erythrocytes in Blood by Automated coun Ordered By: Sushant Cordon on 03-18-0773UOF corrected for nucl RBC Auto (Bld) [#/Vol]5.7 10*3/uL4.1-10.5FKettering Health – Soin Medical CenterLymphocytes Auto (Bld) [#/Vol]Ordered By: Sushant Cordon on 89-57-2688Fhogkzwkzpu (Bld) [#/Vol]1.3 10*3/uL1.00-4.8[facility] EastLymphocytes/100 WBC Auto (Bld)Ordered By: Sushant Cordon on 20-47-3505Adzketjcege/100 WBC (Bld)22.3 %.[facility] Auto (RBC) [Entitic mass] Ordered By: Sushant Cordon on 30-95-6175VLD (RBC) [Entitic mass]27.1 pgLow 27.5-35.2FKet[facility] So[facility] Medical CenterMCHC Auto (RBC) [Mass/Vol]Ordered By: Sushant Cordon on 95-20-5858QBNN (RBC) [Mass/Vol]33.9 g/dL32.5-35.6 [facility] EastMCV Auto (RBC) [Entitic vol]Ordered By: Sushant Cordon on 77-03-6557IEH (RBC) [Entitic vol]79.9 fLLow83.5-101 [facility] EastMagnesium [Mass/volume] in Serum or Plasma Ordered By: Sushant Cordon on 42-31-8811Ajizkfbao [Mass/Vol]1.8 mg/dLLow 1.9-2.7FKettering Health – Soin Medical CenterMonocytes Auto (Bld) [#/Vol]Ordered By: Sushant Cordon on 23-96-8741Dsjwdvfcl (Bld) [#/Vol]1.0 10*3/uLHigh0.0-0.8 [facility] EastMonocytes/100 WBC Auto (Bld)Ordered By: Sushant Cordon on 04-16-2352Yijoqlons/100 WBC (Bld)17.6 %.[facility] EastNeutrophils Auto (Bld) [#/Vol]Ordered By: Sushant Cordon on 50-33-4099Gkckblxrqyq (Bld) [#/Vol]3.0 10*3/uL1.8-7.7FKettering Health – Soin Medical CenterNeutrophils/100 WBC Auto (Bld)Ordered By: Sushant Cordon on 62-82-5433Bclswzfqhni/100 WBC (Bld)51.7 %.[facility] EastNo Panel InformationOrdered By: Sushant Cordon on 02-08-2024 Estimated GFR (CKD-EPI)> 60.0 mL/MinRegency Hospital Cleveland EastPharmacy Creatinine Clearance (Chem58.45[facility] EastNucleated erythrocytes [Presence] in Blood by Automated countOrdered By: Sushant Cordon on 38-63-1009Dltngpahc RBC Auto Ql (Bld)0.2 /100{WBC}0-0.5FKettering Health – Soin Medical CenterPlatelet mean volume Auto (Bld) [Entitic vol]Ordered By: Sushant Cordon on 59-38-1364Zvjpwves mean volume (Bld) [Entitic vol]11.2 fLHigh6.6-10.1FKettering Health – Soin Medical CenterPlatelets Auto (Bld) [#/Vol] Ordered By: Sushant Cordon on 68-07-8022Pikcgwiyh (Bld) [#/Vol]180 10*3/uL 150-450Reg[facility] EastPotassium [Moles/volume] in Serum or PlasmaOrdered By: Sushant Cordon on 04-51-4469Dznsnuiii [Moles/Vol]4.4 mmol/L3.5-5.1FKettering Health – Soin Medical CenterRBC Auto (Bld) [#/Vol]Ordered By: Sushant Cordon on 51-98-8131CSD (Bld) [#/Vol]3.23 10*6/uLLow3.90-5.60 Memorial Hospitalerum or plasma anion gap determinationOrdered By: Sushant Cordon on 81-94-7013Glqlk gap [Moles/Vol]7.8 mmol/L6.0-15.0 Memorial Hospitalodium [Moles/volume] in Serum or PlasmaOrdered By: Sushant Cordon on 39-83-1474Mddbai [Moles/Vol]135 mmol/RIow998-240 [facility] EastUrea nitrogen [Mass/volume] in Serum or Plasma Ordered By: Sushant Cordon on 00-34-1499Mrum nitrogen [Mass/Vol]24 mg/dL -[facility] EastWBC Auto (Bld) [#/Vol]Ordered By: Sushant Cordon on 18-15-6215ZKF (Bld) [#/Vol]5.7 10*3/uL4.1-10.5FKet[facility] – So[facility] Medical CenterNo Panel InformationOrdered By: Warren Gross on 06-18-2388Gbjpcpi Glucose #[address]/[facility] HospitalBedside Glucose CommentSee commentRegency Hospital Cleveland EastComment on above:Glu2: Will Repeat TestAlanine aminotransferase [Enzymatic activity/volume] in Serum or PlasmaOrdered By: Sushant Cordon on 51-28-7239OTT [Catalytic activity/Vol]12 U/L7-52[facility] EastAlbumin [Mass/volume] in Serum or Plasma by Bromocresol green (BCG) dye binding methoOrdered By: Sushant Cordon on 18-56-3686Ulpkdna BCG dye [Mass/Vol]3.2 g/dLLow3.5-5.7FKettering Health – Soin Medical CenterAlkaline phosphatase [Enzymatic activity/volume] in Serum or PlasmaOrdered By: Sushant Cordon on 47-48-7566YIH [Catalytic activity/Vol]94 U/R91-354ZmlqohhazRegency Hospital Cleveland EastAspartate aminotransferase [Enzymatic activity/volume] in Serum or PlasmaOrdered By: Sushant Cordon on 84-20-6153JLW [Catalytic activity/Vol]15 U/M54-60CqkkppiplRegency Hospital Cleveland EastBilirubin.direct [Mass/volume] in Serum or PlasmaOrdered By: Sushant Cordon on 02-06-2024 Bilirubin.direct [Mass/Vol]0.20 mg/dLHigh0.03-0.18FKet[facility] Soin Medical CenterBilirubin.total [Mass/volume] in Serum or PlasmaOrdered By: Sushant Cordon on 35-80-5822Bfocdeukk [Mass/Vol]1.2 mg/dLHigh0.3-1.0[facility] EastGlobulin Calc (S) [Mass/Vol]Ordered By: Sushant Cordon on 36-47-9310Myeebvhc (S) [Mass/Vol]2.0 g/dLRegency Hospital Cleveland EastGlucose mean value [Mass/volume] in Blood Estimated from glycated hemoglobinOrdered By: Sushant Cordon on 31-53-9696Imxabjo glucose Estimated from glycated hemoglobin (Bld) [Mass/Vol]194 mg/dLRegency Hospital Cleveland EastHemoglobin A1c percentageOrdered By: Sushant Cordon on 47-11-1622EwB4x (Bld) [Mass fraction]8.4 %High4.3-5.6FKettering Health – Soin Medical CenterComment on above:Increased risk for diabetes: 5.7 - 6.4diabetes: >6.4glycemic control for adults with diabetes: <7.0No Panel Information Ordered By: Nayeli Jimenez on 87-74-2052Zzqwlub Glucose #3 CommentFollow hypoglycemicRegency Hospital Cleveland EastProtein [Mass/volume] in Serum or PlasmaOrdered By: Sushant Cordon on 30-72-2992Nzwzvwu [Mass/Vol]5.2 g/dL Low6.4-8.9Memorial Hospitalerum or plasma albumin/globulin mass ratioOrdered By: Sushant Cordon on 07-88-5155Tnykytx/Globulin [Mass ratio]1.6 {ratio}Memorial Hospitalerum or plasma non- glucuronidated bilirubin measurement (mass/volume)Ordered By: Sushant Cordon on 99-82-7056Hmbdrosgm.indirect [Mass/Vol]1.0 mg/dLRegency Hospital Cleveland EastTroponin I.cardiac [Mass/volume] in Serum or Plasma by Detection limit <= 0.01 ng/Ordered By: Sushant Cordon on 00-90-0583Xooswudz I.cardiac DL <= 0.01 ng/mL [Mass/Vol]60.3 pg/mLHigh0.0-20.0[facility] EastComment on above:Critical Result : Called to and read back by: PRAKASH YAP at: 02/06/2024 09:42:22 by:CYNTHIAVitamin D+Metabolites [Mass/volume] in Serum or PlasmaOrdered By: Sushant Cordon on 92-78-5919Meswhtm D+Metabolites [Mass/Vol]25.0 ng/pWWlg52-126SoxzznzmpRegency Hospital Cleveland East Comment on above:VITAMIN D STATUS 25(OH)VITAMIN D RANGE (ng/mL) Deficient <20 Insufficient 20 to <31Zhbvjuuubt02 to 100Reference: Batsheva MF,Arcadio NC, Ramy MCGEE, et al. Evaluation,treatment, and prevention of vitamin D deficiency; an Endocrine Society clinical practice guideline. JCEM. 2010; 96 (7):1911-30.Acanthocytes [Presence] in Blood by Light microscopyOrdered By: Paige Luther on 34-83-3917Tjrkhtpepztj LM Ql (Bld)[facility] Health SystemActivated partial thromboplastin time (aPTT) in platelet poor plasma by coagulation aOrdered By: Paige Luther on 03-92-6919vPSB Coag (PPP) [Time]23.6 sLow25.1-36.5FKettering Health – Soin Medical CenterComment on above:A hematocrit value greater than 55% may lead to inaccurate results in coagulation testing. Patientshaving hematocrit values >55% require a special collection tube for coagulation studies. Please contact the laboratory at [phone] for redraw instructions.Alanine aminotransferase [Enzymatic activity/volume] in Serum or PlasmaOrdered By: Paige Luther on 47-44-5720CAC [Catalytic activity/Vol]15 U/L7-52[facility] EastAlbumin [Mass/volume] in Serum or Plasma by Bromocresol green (BCG) dye binding methoOrdered By: Paige Luther on 68-44-5173Kdjhlny BCG dye [Mass/Vol]3.3 g/dLLow3.5-5.7FKettering Health – Soin Medical CenterAlkaline phosphatase [Enzymatic activity/volume] in Serum or PlasmaOrdered By: Paige Luther on 93-92-4501NYI [Catalytic activity/Vol]104 U/B90-173HxdjhfndgRegency Hospital Cleveland EastAnisocytosis LM Ql (Bld)Ordered By: Paige Luther on 49-39-6293Tyaxalwyqpci Ql (Bld)ModerateRegency Hospital Cleveland EastAspartate aminotransferase [Enzymatic activity/volume] in Serum or PlasmaOrdered By: Paige Luther on 22-26-8155OFJ [Catalytic activity/Vol]15 U/L 13-39Reg[facility] EastBasophils Auto (Bld) [#/Vol]Ordered By: Paige Luther on 49-00-9297Ydeuuzzfn (Bld) [#/Vol]0.0 10*3/uL0.0-0.2FKettering Health – Soin Medical CenterBasophils/100 WBC Auto (Bld)Ordered By: Paige Luther on 72-56-5388Fsuuqdbvg/100 WBC (Bld)0.4 %.[facility] Bilirubin.direct [Mass/volume] in Serum or PlasmaOrdered By: Paige Luther on 32-18-4755Ityukborr.direct [Mass/Vol]0.10 mg/dL0.03-0.18FKettering [facility] – Soin Medical CenterBilirubin.total [Mass/volume] in Serum or PlasmaOrdered By: Paige Luther on 29-34-3159Ckodvyuda [Mass/Vol]0.5 mg/dL0.3-1.0[facility] EastBurr cells [Presence] in Blood by Light microscopyOrdered By: Paige Luther on 63-61-6107Yawh cells LM Ql (Bld)SlightRegency Hospital Cleveland EastCalcium [Mass/volume] in Serum or PlasmaOrdered By: Paige Luther on 46-98-5993Lnhrwby [Mass/Vol]8.6 mg/dL8.6-10.3FKet[facility] – Soin Medical CenterCarbon dioxide, total [Moles/volume] in Serum or PlasmaOrdered By: Paige Luther on 06-38-1481DT7 [Moles/Vol]23.1 mmol/L21.0-31.0[facility] EastChloride [Moles/volume] in Serum or PlasmaOrdered By: Paige Luther on 09-84-0482Uzhwnbal [Moles/Vol]103 mmol/N07-832JhdvezbgnRegency Hospital Cleveland EastCreatine kinase [Enzymatic activity/volume] in Serum or Plasma Ordered By: Paige Luther on 02-24-5827OQ [Catalytic activity/Vol]114 U/L30-223 [facility] EastCreatinine [Mass/volume] in Serum or Plasma Ordered By: Paige Luther on 95-56-6137Rdynxpinss [Mass/Vol]1.09 mg/dL0.70-1.30 [facility] EastEosinophils Auto (Bld) [#/Vol]Ordered By: Paige Luther on 86-12-7497Zaazgwszsze (Bld) [#/Vol]0.0 10*3/uL0.0-0.45 [facility] EastEosinophils/100 WBC Auto (Bld)Ordered By: Paige Luther on 99-67-1675Twepapxhfzp/100 WBC (Bld)0.2 %.[facility] EastErythrocyte distribution width Auto (RBC) [Ratio]Ordered By: Paige Luther on 87-01-7646Xzbosgcnvij distribution width (RBC) [Ratio]20.3 % High12.0-14.8[facility] EastGlobulin Calc (S) [Mass/Vol] Ordered By: Paige Luther on 50-53-0744Cnoroqmf (S) [Mass/Vol]2.4 g/dLRegency Hospital Cleveland EastGlucose [Mass/volume] in Serum or PlasmaOrdered By: Paige Luther on 24-45-0928Pfjnnet [Mass/Vol]158 mg/aJKzdw27-094XqxystapuRegency Hospital Cleveland EastComment on above:ADA recommended reference rangeRandom Glucose Reference Range is dependent on time and content of last meal. Glucose of more than 200 mg/dL in a nonstressed, ambulatory subject supports the diagnosisof Diabetes Mellitus.Hematocrit Auto (Bld) [Volume fraction]Ordered By: Paige Luther on 49-35-0016Rpxzgjinuw (Bld) [Volume fraction]23.7 %Low38.8-50.0 [facility] EastHemoglobin [Mass/volume] in BloodOrdered By: Paige Luther on 07-23-2914Pzmqgdlzbx (Bld) [Mass/Vol]7.7 g/dLLow13.0-17.0 [facility] EastHemoglobin.gastrointestinal [Presence] in Stool Ordered By: Paige Luther on 22-10-0749Euwwwtyymh.gastrointestinal Ql (Stl) [facility] EastHypochromia LM Ql (Bld)Ordered By: Paige Luther on 92-72-0294Xkyqoypdivv Ql (Bld)MarkedRegency Hospital Cleveland East INR in Platelet poor plasma by Coagulation assayOrdered By: Paige Luther on 61-07-3664JZQ Coag (PPP) [Relative time]1.3 {INR}[facility] EastComment on above:INR Therapeutic Range A) Pre- and [...] by Automated counOrdered By: Paige Luther on 33-07-3238HHU corrected for nucl RBC Auto (Bld) [#/Vol]9.0 10*3/uL4.1-10.5FKettering Health – Soin Medical CenterLipase [Enzymatic activity/volume] in Serum or PlasmaOrdered By: Paige Luther on [id number] [Catalytic activity/Vol]5.0 U/LLow11.0-82.0[facility] EastLymphocytes Auto (Bld) [#/Vol]Ordered By: Paige Luther on [id number] (Bld) [#/Vol]1.5 10*3/uL1.00-4.8[facility] EastLymphocytes/100 WBC Auto (Bld)Ordered By: Paige Luther on [id number]/100 WBC (Bld)16.3 %.[facility], Cancer CenterH Auto (RBC) [Entitic mass]Ordered By: Paige Luther on 20-26-7844EVK (RBC) [Entitic mass]24.9 pgLow27.5-35.2FMagruder HospitalHC Auto (RBC) [Mass/Vol]Ordered By: Paige Luther on 93-15-9348LBIL (RBC) [Mass/Vol] 32.6 g/dL32.5-35.6FKettering Health – Soin Medical CenterMCV Auto (RBC) [Entitic vol] Ordered By: Paige Luther on 14-18-1579LEV (RBC) [Entitic vol]76.3 fLLow 83.5-101[facility] EastMacrocytes LM Ql (Bld)Ordered By: Paige Luther on 55-20-1384Eigugfctzi Ql (Bld)[facility] SystemMicrocytes LM Ql (Bld)Ordered By: Paige Luther on 06-56-4867Uewtvfhmyp Ql (Bld)[facility] Health SystemMonocyte distribution width [Entitic volume] in Blood by AutomatedOrdered By: Paige Luther on 02-05-2024 Monocyte distribution width Auto (Bld) [Entitic vol]17.22 %0.00-20.00[facility] EastMonocytes Auto (Bld) [#/Vol]Ordered By: Paige Luther on 78-17-0088Dmvwlcpqz (Bld) [#/Vol]0.4 10*3/uL0.0-0.8[facility] EastMonocytes/100 WBC Auto (Bld)Ordered By: Paige Luther on 02-05-2024 Monocytes/100 WBC (Bld)4.8 %.[facility] EastNatriuretic peptide B [Mass/Vol]Ordered By: Paige Luther on 84-43-8247Bunpcdtcqox peptide B (Bld) [Mass/Vol]399.0 pg/mLHigh5-100[facility] Neutrophils Auto (Bld) [#/Vol]Ordered By: Paige Luther on 02-05-2024 Neutrophils (Bld) [#/Vol]7.0 10*3/uL1.8-7.7FKet[facility] Center Neutrophils/100 WBC Auto (Bld)Ordered By: Paige Luther on 02-05-2024 Neutrophils/100 WBC (Bld)78.3 %.[facility] EastNo Panel InformationOrdered By: Paige Luther on 31-37-4719Wkbnnjetw GFR (CKD-EPI)> 60.0 mL/MinRegency Hospital Cleveland EastPharmacy Creatinine Clearance (Chem45.07 [facility] Hospitallides for Pathologist ReviewOrdered path reviewRegency Hospital Cleveland EastNucleated erythrocytes [Presence] in Blood by Automated countOrdered By: Paige Luther on 75-13-0464Blohwgkte RBC Auto Ql (Bld)0.1 /100{WBC}0-0.5FKettering Health – Soin Medical CenterPlatelet adequacy [Presence] in Blood by Light microscopyOrdered By: Paige Luther on 79-93-8374Dfdcaibpo LM Ql (Bld)NormalNormalRegency Hospital Cleveland East Platelet mean volume Auto (Bld) [Entitic vol]Ordered By: Paige Luther on 84-03-7800Adpdpadc mean volume (Bld) [Entitic vol]10.6 fLHigh6.6-10.1FKettering Health – Soin Medical CenterPlatelet morphology finding [Identifier] in BloodOrdered By: Paige Luther on 93-64-1217Rjolfdpy morphology finding Nom (Bld)Normal NormalRegency Hospital Cleveland EastPlatelets Auto (Bld) [#/Vol]Ordered By: Paige Luther on 86-78-8707Fhygrxqli (Bld) [#/Vol]277 10*3/oT142-412EbxaofeyeRegency Hospital Cleveland EastPoikilocytosis [Presence] in Blood by Light microscopy Ordered By: Paige Luther on 17-33-4263Immqxuprxrhsal LM Ql (Bld)Marked [facility] EastPolychromasia [Presence] in Blood by Light microscopyOrdered By: Paige Luther on 79-75-0107Aoxusbxxddhsw LM Ql (Bld) [facility] HospitalPotassium [Moles/volume] in Serum or PlasmaOrdered By: Paige Luther on 13-63-1232Awiwcsdrw [Moles/Vol]5.1 mmol/L 3.5-5.1FKettering Health – Soin Medical CenterProtein [Mass/volume] in Serum or Plasma Ordered By: Paige Lutehr on 41-94-9595Zhduqbm [Mass/Vol]5.7 g/dLLow6.4-8.9 [facility] EastProthrombin time (PT)Ordered By: Paige Luther on 96-66-3216YV Coag (PPP) [Time]15.5 sHigh9.0-12.9[facility] EastComment on above:A hematocrit value greater than 55% may lead to inaccurate results in coagulation testing. Patientshaving hematocrit values >55% require a special collection tube for coagulation studies. Please contact the laboratory at [phone] for redraw instructions.RBC Auto (Bld) [#/Vol]Ordered By: Paige Luther on 09-35-7198GTG (Bld) [#/Vol]3.11 10*6/uLLow3.90-5.60 [facility] EastRBC morphologyOrdered By: Paige Luther on 09-07-7118DJX morphology finding Nom (Bld)N/[facility] Schistocytes [Presence] in Blood by Light microscopyOrdered By: Paige Luther on 30-53-2659Vnyxihrrgswl LM Ql (Bld)[facility] Serum or plasma albumin/globulin mass ratioOrdered By: Paige Luther on 44-70-8240Ypiutww/Globulin [Mass ratio]1.4 {ratio}Memorial Hospitalerum or plasma anion gap determinationOrdered By: Paige Luther on 21-48-3618Fvkes gap [Moles/Vol]12.0 mmol/L6.0-15.0Memorial Hospitalerum or plasma non-glucuronidated bilirubin measurement (mass/volume) Ordered By: Paige Luther on 33-01-2688Obtkzhdmb.indirect [Mass/Vol]0.4 mg/dL Memorial Hospitalodium [Moles/volume] in Serum or PlasmaOrdered By: Paige Luther on 82-12-0566Ghthdm [Moles/Vol]133 mmol/GSlz871-733WtdlkxkzlRegency Hospital Cleveland EastTarget cellsOrdered By: Paige Luther on 02-05-2024 Target cells LM Ql (Bld)SlightRegency Hospital Cleveland EastTroponin I.cardiac [Mass/volume] in Serum or Plasma by Detection limit <= 0.01 ng/Ordered By: Paige Luther on 44-31-5315Zjbwobua I.cardiac DL <= 0.01 ng/mL [Mass/Vol] 85.5 pg/mLHigh0.0-20.0[facility] Cleveland EastComment on above:Critical Result : Called to and read back by: PAIGE BENNETT at: 02/06/2024 00:36:33 by:[id number] nitrogen [Mass/volume] in Serum or PlasmaOrdered By: Paige uLther on 81-72-8406Ppzd nitrogen [Mass/Vol]58 mg/dLHigh7-25Reg[facility] EastWBC Auto (Bld) [#/Vol]Ordered By: Paige Luther on 38-39-2816VCA (Bld) [#/Vol]9.0 10*3/uL4.1-10.5FKettering Health – Soin Medical CenterCBC AND AUTO DIFFon 25-38-3085CWVFHXMY BASOPHIL0.1 X10E9/LNormal0.0-0.2PKettering Health HamiltonComment on above:Performed By: #### CBCA, 05872-3, PINR, 48799-3, 46368- 7, 93094-3, 37690-8, THYR, 16545-6, CMP, 23148-0, 2157-6 #### [facility] ([id number]) [address] [place] [address] #### HA1C #### [facility] ([id number]) [address], [address] [place], [place] [address]NCUBMGNPGCV6+AbnormalNONEProMedica Jesup HospitalComment on above:Performed By: #### CBCA, 09816-0, PINR, 67901-9, 90223-7, 59607-4, 51115- 4, THYR, 38138-0, CMP, 99099-1, 2157-6 #### [facility] ([id number]) [address] [place] [address] #### HA1C #### [facility] ([id number]) [address], [address] [place], [place] [address]Kkbp form neutrophils/100 WBC (Bld)1.0 %NormalProMedica Jesup HospitalComment on above:Performed By: #### CBCA, 85461-7, PINR, 08009-3, 61024- 7, 06739-3, 73428-1, THYR, 79189-5, CMP, 40495-1, 7-6 #### [facility] ([id number]) [address] [place] [address] #### HA1C #### [facility] ([id number]) [address], [address] [place], [place] [address]Sjgmztqrb/100 WBC (Bld)1.0 %NormalProOhio State Health System Hospital Comment on above:Performed By: #### CBCA, 56948-2, PINR, 92992-1, 82899-7, 21014-7, 77507-3, THYR, 69666-0, CMP, 07731-1, 2157-6 #### [facility] ([id number]) [address] [place], [place] [address] #### HA1C #### [facility] ([id number]) [address], [address] [place], [place] [address]BWPV3+AbnormalNONEProMedica Stiles HospitalComment on above: Performed By: #### CBCA, 06773-2, PINR, 38508-8, 92248-0, 91547-8, 94511-8, THYR, 08633-4, CMP, 38824-9, 2156-6 #### [facility] ([id number]) [address] [place] [address] #### HA1C #### [facility] ([id number]) [address] [place] [address], [address] [place], [place] [address]Wkaedinsgie (Bld) [#/Vol]0.2 10*3/uLNormal0.0-0.4ProAvita Health System Bucyrus Hospitalca Southview Medical CenterComment on above:Performed By: #### CBCA, 78228-9, PINR, 14163-4, 79213-0, 07084-8, 90743-0, THYR, 11584-2, CMP, 12470-3, 2156-6 #### [facility] ([id number]) [address] [place] [address] #### HA1C #### [facility] ([id number]) [address] [place] [address], [address] [place], [place] [address]Lpavtarbbev/100 WBC (Bld)1.9 %NormalProSelect Medical Specialty Hospital - Canton Comment on above:Performed By: #### CBCA, 58414-5, PINR, 03167-3, 87557-2, 51034-7, 90536-4, THYR, 94352-6, CMP, 66058-9, 2156- #### [facility] ([id number]) [address] [place] [address] #### HA1C #### [facility] ([id number]) [address] [place] [address], [address] [place], [place] [address]Gksmisntabh distribution width (RBC) [Ratio]19.3 %High11.5-15.0 [facility] Southview Medical CenterComment on above:Performed By: #### CBCA, 06880-1, PINR, 61240-4, 50873-3, 23369-3, 67731-0, THYR, 86903-9, CMP, 43402-6, 2156-6 #### [facility] ([id number]) [address] [place] [address] #### HA1C #### [facility] ([id number]) [address], [address] [place], [place] [address]BKTWYPFW1+AbnormalNONEProMedica Jesup HospitalComment on above: Performed By: #### CBCA, 58484-5, PINR, 69193-0, 28095-0, 00405-5, 62020-5, THYR, 70350-8, CMP, 40060-1, 2156- #### [facility] ([id number]) [address] [place] [address] #### HA1C #### [facility] ([id number]) [address], [address] [place], [place] [address]Ylsyvihqvb (Bld) [Volume fraction]31.5 %Ndn72-15IlfQsojss Toledo HospitalComment on above:Performed By: #### CBCHe, 08078-3, PINR, 86608-5, 52584- 7, 99591-1, 65636-5, THYR, 44193-3, CMP, 95654-0, 2156- #### [facility] ([id number]) [address] [place] [address] #### HA1C #### [facility] ([id number]) [address], [address] [place], [place] [address]Uyzqrnskqi (Bld) [Mass/Vol]10.4 g/dLLow13.0-17.0ProSelect Medical Specialty Hospital - CantonComment on above:Performed By: #### CBCA, 17977-6, PINR, 05411-1, 13144-7, 23174-1, 82487-3, THYR, 59643-7, CMP, 77314-3, 2157-6 #### [facility] ([id number]) [address] [place] [address] #### HA1C #### [facility] ([id number]) [address] [place] [address], [address] [place], [place] [address]GTIQEIVYDUC9+AbnormalNONEProMedica Jesup HospitalComment on above:Performed By: #### CBCA, 13600-0, PINR, 02084-6, 81181-2, 15942-2, 45149- 4, THYR, 24519-2, CMP, 73550-7, 2157-6 #### [facility] ([id number]) [address] [place] [address] #### HA1C #### [facility] ([id number]) [address] [place] [address], [address] [place], [place] [address]WZHWSGNUCN, ATYPICAL1.0 %NormalProMedica Jesup HospitalComment on above:Performed By: #### CBCA, 65000-8, PINR, 99339-4, 20891-4, 31370-6, 89505-9, THYR, 65268-7, CMP, 06710-7, 2156-6 #### [facility] ([id number]) [address] [place] [address] #### HA1C #### [facility] ([id number]) [address] [place] [address], [address] [place], [place] [address]Vlmnxtwmwlx (Bld) [#/Vol]1.9 10*3/uLNormal1.0-3.5ProMedica Jesup HospitalComment on above:Performed By: #### CBCA, 36726-7, PINR, 81972-7, 37470-5, 34567-5, 60887-7, THYR, 49178-4, CMP, 22235-7, 2157-6 #### [facility] ([id number]) [address] [place] [address] #### HA1C #### [facility] ([id number]) [address], [address] [place], [place] [address]Kmwblfgwvmi/100 WBC (Bld)20.0 %NormalMansfield Hospital Comment on above:Performed By: #### CBCA, 17183-4, PINR, 20780-9, 84018-5, 52242-8, 26287-7, THYR, 11154-3, CMP, 97159-7, 2157-6 #### [facility] ([id number]) [address] [place] [address] #### HA1C #### [facility] ([id number]) [address], [address] [place], [place] [address]NLJ (RBC) [Entitic mass]24.6 gvRbg79-22WfmCnykdbMansfield Hospital Comment on above:Performed By: #### CBCA, 95505-7, PINR, 29203-6, 00389-5, 26830-4, 55363-5, THYR, 41417-4, CMP, 76486-7, 2156-6 #### [facility] ([id number]) [address] [place] [address] #### HA1C #### [facility] ([id number]) [address] [place], [place] [address]UUBG (RBC) [Mass/Vol]32.9 g/aCNsejbz16-20AwsYurtiiMansfield HospitalComment on above:Performed By: #### CBCA, 81463-6, PINR, 35718-8, 63707- 7, 69434-1, 05324-6, THYR, 90801-1, CMP, 31678-9, 7-6 #### [facility] ([id number]) [address] [place] [address] #### HA1C #### [facility] ([id number]) [address], [address] [place], [place] [address]QBG (RBC) [Entitic vol]75 fIOqv80-533VieSrcfhaMansfield Hospital Comment on above:Performed By: #### CBCA, 83324-9, PINR, 38736-8, 04913-7, 83288-1, 68230-6, THYR, 57132-8, CMP, 82672-3, 2157-6 #### [facility] ([id number]) [address] [place] [address] #### HA1C #### [facility] ([id number]) [address], [address] [place], [place] [address]Hjysvflni (Bld) [#/Vol]0.9 10*3/uLNormal0-0.9Mansfield HospitalComment on above:Performed By: #### CBCA, 03867-0, PINR, 11975-3, 68289- 7, 76913-2, 50413-0, THYR, 88440-6, CMP, 93419-3, 2156-6 #### [facility] ([id number]) [address] [place] [address] #### HA1C #### [facility] ([id number]) [address], [address] [place], [place] [address]Ooxpiwudi/100 WBC (Bld)9.5 %NormalMansfield Hospital Comment on above:Performed By: #### CBCA, 51818-4, PINR, 98572-8, 09114-5, 77208-1, 88354-8, THYR, 04925-9, CMP, 81836-9, 2156-6 #### [facility] ([id number]) [address] [place] [address] #### HA1C #### [facility] ([id number]) [address] [facility] [facility] [place], [place] [address]Anhdxtdyebx (Bld) [#/Vol]6.1 10*3/uLNormal1.5-6.6ProMedica Jesup HospitalComment on above:Performed By: #### CBCA, 94490-8, PINR, 14310-8, 73775-0, 00825-8, 31471-8, THYR, 57887-2, CMP, 08379-8, 2157-6 #### [facility] ([id number]) [address] [place] [address] #### HA1C #### [facility] ([id number]) [address], [address] [place], [place] [address]Izoxldgn mean volume (Bld) [Entitic vol]10.6 fLNormal7-12 [facility] Jesup HospitalComment on above:Performed By: #### CBCA, 92741-6, PINR, 58248-4, 48509-8, 09378-7, 82826-5, THYR, 09366-9, CMP, 23028-3, 2157-6 #### [facility] ([id number]) [address] [place] [address] #### HA1C #### [facility] ([id number]) [address], [address] [place], [place] [address]Wphfefeth (Bld) [#/Vol]245 10*3/jSCwvyat234-872KgmEmvrpw [facility]edo HospitalComment on above:Performed By: #### CBCA, 33660-8, PINR, 91686-6, 14342- 7, 55326-3, 13646-0, THYR, 81559-6, CMP, 83334-3, 2157-6 #### [facility] ([id number]) [address] [place] [address] #### HA1C #### [facility] ([id number]) [address], [address] [place], [place] [address]UBW COUNT4.22 X10E12/LNormal4.10-5.70ProOhio State Health System Hospital Comment on above:Performed By: #### CBCA, 94089-0, PINR, 94753-2, 29719-3, 98924-0, 02029-4, THYR, 45726-0, CMP, 62078-9, 2157-6 #### [facility] ([id number]) [address] [place] [address] #### HA1C #### [facility] ([id number]) [address] [facility], [address] [place], [place] [address]DSC WVEDIHVKZC94.6 %NormalProOhio State Health System HospitalComment on above:Performed By: #### CBCA, 17057-2, PINR, 00322-1, 26650-1, 51486-8, 67030- 4, THYR, 49369-3, CMP, 14578-1, 2156-6 #### [facility] ([id number]) [address] [place] [address] #### HA1C #### [facility] ([id number]) [address] [place] [address], [address] [place], [place] [address]IQJSXK8+AbnormalNONEProMedica Jesup HospitalComment on above: Performed By: #### CBCA, 09770-0, PINR, 05548-1, 70261-7, 75616-2, 69397-3, THYR, 40942-3, CMP, 30438-7, 2156-6 #### [facility] ([id number]) [address] [place] [address] #### HA1C #### [facility] ([id number]) [address] [place] [address], [address] [place], [place] [address]BXV (Bld) [#/Vol]9.2 10*3/uLNormal4.0-11.0ProOhio State Health System HospitalComment on above:Performed By: #### CBCA, 90363-1, PINR, 44615-4, 46021- 7, 39244-1, 81865-7, THYR, 67898-9, CMP, 71734-8, 2157-6 #### [facility] ([id number]) [address] [place], [place] [address] #### HA1C #### [facility] ([id number]) [address] [place] [address], [address] [place], [place] [address] [Catalytic activity/Vol]on 07-89-1746ZFZ560 U/OPhih21-986 [facility] Jesup HospitalComment on above:Performed By: #### CBCA, 36271-2, PINR, 26974-9, 25926-7, 48225-4, 48814-2, THYR, 36120-7, CMP, 41340-1, 2157-6 #### [facility] ([id number]) [address] [place] [address] #### HA1C #### [facility] ([id number]) [address] [place] [address], [address] [place], [place] [address]SNC[address] U/IAknc39-848NmlTqkbbk Jesup HospitalComment on above: Performed By: #### CBCHe, 98553-1, PINR, 18309-2, 87346-6, 65706-4, 82351-5, THYR, 94720-3, CMP, 95793-6, 2157-6 #### [facility] ([id number]) [address] [place] [address] #### HA1C #### [facility] ([id number]) [address] [place] [address], [address] [place], [place] [address]OSXYAXQSNUQHH METABOLIC PANELon 30-32-6646Fgrdyou [Mass/Vol]3.4 g/dLNormal3.2-5.3ProMedica Jesup HospitalComment on above:Performed By: #### CBCA, 42123-7, PINR, 06403-3, 08026-1, 64874-2, 16659-8, THYR, 83868-1, CMP, 27758-8, 2157-6 #### [facility] ([id number]) [address] [place] [address] #### HA1C #### [facility] ([id number]) [address], [address] [place], [place] [address]WCF [Catalytic activity/Vol]102 U/VJxaiou71-388EtoXufitq [facility] HospitalComment on above:Performed By: #### CBCA, 91820-9, PINR, 39326-4, 44971- 7, 73451-1, 95442-1, THYR, 19819-0, CMP, 14143-5, 2157-6 #### [facility] ([id number]) [address] [place] [address] #### HA1C #### [facility] ([id number]) [address], [address] [place], [place] [address]DWI [Catalytic activity/Vol]26 U/LNormal0-40ProSelect Medical Specialty Hospital - CantonComment on above:Performed By: #### CBCA, 66247-4, PINR, 06185-9, 93369- 7, 86689-0, 62567-5, THYR, 46586-2, CMP, 87309-3, 7-6 #### [facility] ([id number]) [address] [place] [address] #### HA1C #### [facility] ([id number]) [address], [address] [place], [place] [address]Fcfys gap [Moles/Vol]9 mmol/LNormal5-15ProOhio [facility] System Hospital Comment on above:Performed By: #### CBCA, 27946-9, PINR, 87838-7, 38987-4, 44197-3, 31099-7, THYR, 46214-6, CMP, 31073-6, 2157-6 #### [facility] ([id number]) [address] [place] [address] #### HA1C #### [facility] ([id number]) [address] [place] [address], [address] [place], [place] [address]NHM [Catalytic activity/Vol]31 U/LNormal0-41ProMedica Jesup HospitalComment on above:Performed By: #### CBCA, 16279-2, PINR, 80735-3, 20532- 7, 02686-6, 74027-3, THYR, 19424-5, CMP, 09783-8, 7-6 #### [facility] ([id number]) [address] [place] [address] #### HA1C #### [facility] ([id number]) [address] [place] [address], [address] [place], [place] [address]Xcfenczhn [Mass/Vol]0.7 mg/dLNormal0.3-1.2ProMedica Jesup HospitalComment on above:Performed By: #### CBCA, 49925-3, PINR, 59473-1, 29504- 7, 27919-5, 04235-0, THYR, 28542-5, CMP, 80923-9, 7-6 #### [facility] ([id number]) [address] [place] [address] #### HA1C #### [facility] ([id number]) [address] [place] [address], [address] [place], [place] [address]Xpxrkpd [Mass/Vol]8.5 mg/dLNormal8.5-10.5ProMedDayton Osteopathic Hospital HospitalComment on above:Performed By: #### CBCA, 01800-1, PINR, 45113-4, 24245- 7, 85698-4, 56790-2, THYR, 03238-0, CMP, 27172-0, 2157-6 #### [facility] ([id number]) [address] [place] [address] #### HA1C #### [facility] ([id number]) [address], [address] [place], [place] [address]Dycjjcpq [Moles/Vol]103 mmol/MOwvlng53-805RcyPjcyhh [facility] HospitalComment on above:Performed By: #### WILLIAM, 49387-8, PINR, 37754-9, 14705- 7, 47635-2, 14760-3, THYR, 06211-5, CMP, 75596-3, 2157-6 #### [facility] ([id number]) [address] [place], [place] [id number] #### HA1C #### [facility] ([id number]) [address], [address] [place], [place] [address]HS1 [Moles/Vol]24 mmol/OEszchp69-79ThkVqfaytKettering Health Hamilton Comment on above:Performed By: #### WILLIAM, 91777-1, PINR, 71680-1, 27512-1, 68925-1, 76685-4, THYR, 97176-9, CMP, 79789-6, 2156-6 #### [facility] ([id number]) [address] [place] [address] #### HA1C #### [facility] ([id number]) [address], [address] [place], [place] [address]Jyxkaufhnx [Mass/Vol]0.77 mg/dLNormal0.60-1.30ProSelect Medical Specialty Hospital - CantonComment on above:Result Comment: METHOD TRACEABLE TO IDMS STANDARD Performed By: #### CBCA, 84607-5, PINR, 09888-8, 47148-5, 77972-2, 54086-4, THYR, 74233-1, CMP, 24577-9, 7-6 #### [facility] ([id number]) [address] [place], [place] [address] #### HA1C #### [facility] ([id number]) [address], [address] [place], [place] [address]IDU/1.73 sq M.predicted among non-blacks MDRD (S/P/Bld) [Vol rate/Area]87 mL/min/{1.73_m2}Normal>59ProSelect Medical Specialty Hospital - CantonComment on above: Result Comment: Reported eGFR is based on the CKD-EPI 2020 equation that does not use a race coefficient.Performed By: #### CBCA, 56731-2, PINR, 60739-7, 41418-6, 98534-9, 29894-7, THYR, 71681-1, CMP, 52881-9, 2156- #### [facility] ([id number]) [address] [place] [address] #### HA1C #### [facility] ([id number]) [address], [address] [place], [place] [address]Ejexmgi [Mass/Vol]167 mg/sRJghs77-43PbgAxgjdwSelect Medical Specialty Hospital - Canton Comment on above:Performed By: #### WILLIAM, 77306-7, PINR, 55747-5, 14351-8, 06914-2, 20153-2, THYR, 54840-7, CMP, 46391-8, 2156- #### [facility] ([id number]) [address] [place] [address] #### HA1C #### [facility] ([id number]) [address], [facility] [address] [place], [place] [address]Rlixnliit [Moles/Vol]4.0 mmol/LNormal3.5-5.0ProSelect Medical Specialty Hospital - CantonComment on above:Performed By: #### CBCA, 30051-6, PINR, 96720-9, 76186- 7, 61923-1, 68914-9, THYR, 77474-6, CMP, 39985-8, 2156- #### [facility] ([id number]) [address] [place] [address] #### HA1C #### [facility] ([id number]) [address], [address] [place], [place] [address]Ihefvdv [Mass/Vol]6.0 g/dLNormal6.0-8.0ProSelect [facility] Special[facility] Hospital [facility] Comment on above:Performed By: #### CBCA, 21380-6, PINR, 15583-6, 84027-3, 08054-8, 58912-9, THYR, 39452-3, CMP, 83821-3, 2156-6 #### [facility] ([id number]) [address] [place] [address] #### HA1C #### [facility] ([id number]) [address] [facility] [address] [place], [place] [address]Mdnlhc [Moles/Vol]136 mmol/SRnlupk251-631WjzVoifyc [place] HospitalComment on above:Performed By: #### CBCA, 75952-2, PINR, 01824-2, 89693- 7, 61898-2, 55633-1, THYR, 21729-9, CMP, 37403-0, 2156- #### [facility] ([id number]) [address] [place] [address] #### HA1C #### [facility] ([id number]) [address], [address] [place], [place] [address]Lqbe nitrogen [Mass/Vol]16 mg/dLNormal5-27ProSelect Medical Specialty Hospital - CantonComment on above:Performed By: #### CBCA, 89200-0, PINR, 45972-9, 10356- 7, 25932-5, 82011-3, THYR, 87807-0, CMP, 15541-4, 2156- #### [facility] ([id number]) [address] [place] [address] #### HA1C #### [facility] ([id number]) [address], [address] [place], [place] [address]Pdnsthr Glucometer (BldC) [Mass/Vol]on 47-07-3304Jkvmuya [Mass/Vol]371 mg/wUHpvb59-17EprJjjllv Jesup HospitalGlucose [Mass/Vol]181 mg/dL Ddzg37-65CfzVwchfj [place] HospitalMAGNESIUMon 91-99-1156Xgpaogjyb [Mass/Vol]1.6 mg/dLLow1.8-2.6ProMedica Jesup HospitalComment on above:Performed By: #### WILLIAM, 98563-1, PINR, 48807-8, 50168-7, 14686-7, 99116-5, THYR, 48741-7, CMP, 21169-0, 2156-6 #### [facility] ([id number]) [facility] [place] [address] #### HA1C #### [facility] ([id number]) [address] [facility], [address] [place], [place] [address]YW [Catalytic activity/Vol]on 33-15-7502ZGJ127 U/SKyni92-690 Pro[facility]ica Jesup HospitalComment on above:Performed By: #### WILLIAM, 78688-7, PINR, 48374-2, 12712-0, 53961-8, 68965-1, THYR, 50265-8, CMP, 90207-7, 2156- #### [facility] ([id number]) [address] [place] [address] #### HA1C #### [facility] ([id number]) [address] [facility], [address] [place], [place] [id number] U/ZZpic86-182NcfUvhwhd [place] HospitalComment on above: Performed By: #### WILLIAM, 38615-5, PINR, 80942-9, 83697-3, 49639-5, 36764-1, THYR, 39891-4, CMP, 65963-5, 2156- #### [facility] ([id number]) [address] [place], [place] [address] #### HA1C #### [facility] ([id number]) [address] [place] [address], [address] [place], [place] [address]CPF941 U/EBecv19-480ZtmQngzbv [place] HospitalComment on above: Performed By: #### CBCA, 49020-0, PINR, 32518-8, 28374-2, 04335-0, 04414-2, THYR, 37124-5, CMP, 94850-3, 2157-6 #### [facility] ([id number]) [address] [place] [address] #### HA1C #### [facility] ([id number]) [address] [place] [address], [address] [place] [address]TENVMQXX BLOOD COUNTon 49-89-1293Emqoclxuahi distribution width (RBC) [Ratio]19.8 %High11.5-15.0ProOhio State Health System HospitalComment on above: Performed By: #### CBCA, 77663-7, PINR, 84694-9, 23579-5, 39094-2, 66321-9, THYR, 81154-6, CMP, 80901-8, 7-6 #### [facility] ([id number]) [address] [place] [address] #### HA1C #### [facility] ([id number]) [address] [place] [address], [address] [place] [address]151Onxgydlrnj (Bld) [Volume fraction]34.0 %Efc24-51XtlHlnqkr [place] HospitalComment on above:Performed By: #### CBCA, 37429-8, PINR, 22434-8, 19501- 7, 59381-0, 71522-6, THYR, 43250-6, CMP, 47876-5, 2157-6 #### [facility] ([id number]) [address] [place], [place] [address] #### HA1C #### [facility] ([id number]) [address], [address] [place], [place] [address]Lcovvkysze (Bld) [Mass/Vol]11.0 g/dLLow13.0-17.0ProSelect Medical Specialty Hospital - CantonComment on above:Performed By: #### CBCA, 48966-6, PINR, 54964-4, 66298-4, 69869-4, 42465-8, THYR, 41795-7, CMP, 19699-2, 2157-6 #### [facility] ([id number]) [address] [place] [address] #### HA1C #### [facility] ([id number]) [address], [address] [place], [place] [address]MAJ (RBC) [Entitic mass]24.3 vgXpz11-43IttOeopjt [facility] Comment on above:Performed By: #### CBCA, 99945-2, PINR, 42727-0, 87667-7, 18668-8, 88874-4, THYR, 73247-0, CMP, 14955-9, 2156-6 #### [facility] ([id number]) [address] [place] [address] #### HA1C #### [facility] ([id number]) [address], [address] [place], [place] [address]HJPI (RBC) [Mass/Vol]32.3 g/lVJmnhvl39-26AssQxkdor [place] HospitalComment on above:Performed By: #### CBCA, 51297-2, PINR, 98819-2, 04057- 7, 90331-1, 50280-4, THYR, 61219-6, CMP, 70819-4, 2156-6 #### [facility] ([id number]) [address] [place] [address] #### HA1C #### [facility] ([id number]) [address], [address] [place], [place] [address]VDO (RBC) [Entitic vol]75 zLMtd47-615QpbThyqoiSelect Medical Specialty Hospital - Canton Comment on above:Performed By: #### CBCA, 49509-9, PINR, 51330-7, 78755-0, 90777-2, 24605-4, THYR, 87625-7, CMP, 02251-8, 2157-6 #### [facility] ([id number]) [address] [place] [address] #### HA1C #### [facility] ([id number]) [address], [address] [place], [place] [address]Hgxtomrx mean volume (Bld) [Entitic vol]10.5 fLNormal7-12 [facility]view Medical CenterComment on above:Performed By: #### CBCA, 85114-2, PINR, 33486-3, 39453-9, 05707-6, 22329-0, THYR, 97432-1, CMP, 71900-2, 7-6 #### [facility] ([id number]) [address] [place] [address] #### HA1C #### [facility] ([id number]) [address], [address] [place], [place] [address]Ieajnssbx (Bld) [#/Vol]237 10*3/fHUhgonh099-328KkxRfdfjv [place] HospitalComment on above:Performed By: #### CBCA, 25306-1, PINR, 49711-1, 12091- 7, 71256-7, 17264-0, THYR, 57076-9, CMP, 71799-8, 7-6 #### [facility] ([id number]) [address] [place] [address] #### HA1C #### [facility] ([id number]) [address] [facility], [address] [place], [place] [address]MQH COUNT4.51 X10E12/LNormal4.10-5.70[facility] Comment on above:Performed By: #### CBCA, 71965-1, PINR, 05605-7, 95365-8, 52101-2, 60956-6, THYR, 32080-4, CMP, 29721-2, 2157-6 #### [facility] ([id number]) [address] [place] [address] #### HA1C #### [facility] ([id number]) [address] [place] [address], [address] [place], [place] [address]DVY (Bld) [#/Vol]12.3 10*3/uLHigh4.0-11.0ProSelect Medical Specialty Hospital - CantonComment on above:Performed By: #### CBCA, 04285-9, PINR, 48918-7, 34962- 7, 68100-1, 00674-1, THYR, 30099-7, CMP, 02115-4, 2157-6 #### [facility] ([id number]) [address] [place] [address] #### HA1C #### [facility] ([id number]) [address] [place] [address], [address] [place], [place] [address]KZKDKNLMLLEOM METABOLIC PANELon 33-07-1467Ctefurt [Mass/Vol]3.7 g/dLNormal3.2-5.3ProMedMarymount HospitalComment on above:Performed By: #### CBCA, 97848-2, PINR, 13222-6, 13375-9, 45220-0, 93060-6, THYR, 00749-4, CMP, 88041-6, 2157-6 #### [facility] ([id number]) [address] [place] [address] #### HA1C #### [facility] ([id number]) [address] [place] [address], [address] [place], [place] [address]KKQ [Catalytic activity/Vol]117 U/QOxckot18-912JhjCgpwjc Stiles HospitalComment on above:Performed By: #### WILLIAM, 98856-0, PINR, 80751-5, 84353- 7, 10391-0, 80630-3, THYR, 41487-1, CMP, 42704-4, 2157-6 #### [facility] ([id number]) [address] [place] [address] #### HA1C #### [facility] ([id number]) [address] [place] [address], [address] [place], [place] [address]YLO [Catalytic activity/Vol]29 U/LNormal0-40ProMedica Stiles HospitalComment on above:Performed By: #### WILLIAM, 67915-9, PINR, 20394-2, 93499- 7, 31749-4, 86467-0, THYR, 50256-0, CMP, 77065-0, 2157-6 #### [facility] ([id number]) [address] [place] [address] #### HA1C #### [facility] ([id number]) [address] [place] [address], [address] [place], [place] [address]Sphbl gap [Moles/Vol]13 mmol/LNormal5-15ProAvita Health System Bucyrus Hospitalca Jesup HospitalComment on above:Performed By: #### WILLIAM, 15468-1, PINR, 38862-4, 18849- 7, 01982-9, 28900-4, THYR, 75469-6, CMP, 57441-1, 2157-6 #### [facility] ([id number]) [address] [place] [address] #### HA1C #### [facility] ([id number]) [address] [place] [address], [address] [place], [place] [address]MQP [Catalytic activity/Vol]51 U/LHigh0-41Pro[facility]ica Stiles HospitalComment on above:Performed By: #### WILLIAM, 64362-6, PINR, 38976-8, 16336- 7, 22475-5, 91612-2, THYR, 30205-9, CMP, 45677-1, 2156-6 #### [facility] ([id number]) [address] [place] [address] #### HA1C #### [facility] ([id number]) [address] [facility] [facility], [address] [place], [place] [address]Guhhqmfgt [Mass/Vol]0.7 mg/dLNormal0.3-1.2ProMedDay[facility] Hospital HospitalComment on above:Performed By: #### CBCA, 82983-8, PINR, 82235-9, 16163- 7, 28808-1, 47246-8, THYR, 69461-2, CMP, 08607-6, 2156-6 #### [facility] ([id number]) [address] [place] [address] #### HA1C #### [facility] ([id number]) [address] [facility] [facility], [address] [place], [place] [address]Bzzoxvn [Mass/Vol]8.5 mg/dLNormal8.5-10.5ProMedDay[facility] Hospital HospitalComment on above:Performed By: #### CBCA, 22947-3, PINR, 60650-7, 16278- 7, 58679-7, 64258-9, THYR, 06620-1, CMP, 23731-5, 2156-6 #### [facility] ([id number]) [address] [place] [address] #### HA1C #### [facility] ([id number]) [address] [facility] [facility], [address] [place], [place] [address]Tzjmtojt [Moles/Vol]103 mmol/MKebdij27-263MyuYvbvua [facility] HospitalComment on above:Performed By: #### CBCA, 67135-4, PINR, 14710-2, 93390- 7, 31355-9, 06794-9, THYR, 07784-1, CMP, 26613-1, 7-6 #### [facility] ([id number]) [address] [place] [address] #### HA1C #### [facility] ([id number]) [address] [facility], [address] [place], [place] [address]JT0 [Moles/Vol]19 mmol/EVzk14-88IjgDqwtza Southview Medical CenterComment on above:Performed By: #### WILLIAM, 90971-7, PINR, 91516-0, 44183-7, 92563-4, 25675-8, THYR, 44067-9, CMP, 98277-8, 2156-6 #### [facility] ([id number]) [address] [place] [address] #### HA1C #### [facility] ([id number]) [address] [place] [address], [address] [place] [address]Jbejahtgzx [Mass/Vol]0.72 mg/dLNormal0.60-1.30ProSelect Medical Specialty Hospital - CantonComment on above:Result Comment: METHOD TRACEABLE TO IDMS STANDARD Performed By: #### WILLIAM, 99554-6, PINR, 82441-1, 10068-3, 03215-0, 40190-2, THYR, 20716-2, CMP, 39092-2, 2156-6 #### [facility] ([id number]) [address] [place] [address] #### HA1C #### [facility] ([id number]) [address], [address] [place], [place] [address]VWN/1.73 sq M.predicted among non-blacks MDRD (S/P/Bld) [Vol rate/Area]89 mL/min/{1.73_m2}Normal>59ProSelect Medical Specialty Hospital - CantonComment on above: Result Comment: Reported eGFR is based on the CKD-EPI 2020 equation that does not use a race coefficient.Performed By: #### CBCA, 69951-6, PINR, 86750-2, 66404-3, 70742-1, 51492-2, THYR, 84190-5, CMP, 43611-0, 2156-6 #### [facility] ([id number]) [address] [place] [address] #### HA1C #### [facility] ([id number]) [address], [address] [place], [place] [address]Jlaznxj [Mass/Vol]208 mg/xJRbeo57-92XqeWcqticSelect Medical Specialty Hospital - [facility]on Comment on above:Performed By: #### CBCA, 42302-1, PINR, 33268-5, 38582-7, 17016-2, 87560-6, THYR, 75487-2, CMP, 37014-9, 2156-6 #### [facility] ([id number]) [address] [place] [address] #### HA1C #### [facility] ([id number]) [address], [address] [place], [place] [address]Oedjnqcfj [Moles/Vol]4.2 mmol/LNormal3.5-5.0ProSelect Medical Specialty Hospital - CantonComment on above:Performed By: #### CBCHe, 14797-4, PINR, 79289-5, 07015- 7, 94390-8, 42349-4, THYR, 89194-8, CMP, 36228-8, 2156-6 #### [facility] ([id number]) [address] [place], [place] [address] #### HA1C #### [facility] ([id number]) [address], [address] [place], [place] [address]Cwcfrxq [Mass/Vol]6.6 g/dLNormal6.0-8.0[facility] Comment on above:Performed By: #### CBCA, 67018-0, PINR, 45889-8, 76290-9, 51729-8, 75925-0, THYR, 73680-4, CMP, 53986-4, 2157-6 #### [facility] ([id number]) [address] [place] [address] #### HA1C #### [facility] ([id number]) [address] [place] [address], [address] [place], [place] [address]Nnviim [Moles/Vol]135 mmol/SQqland459-965CjySgyaqv [facility] HospitalComment on above:Performed By: #### CBCHe, 38906-2, PINR, 14887-7, 79089- 7, 66651-8, 16866-1, THYR, 88829-8, CMP, 83064-8, 2156-6 #### [facility] ([id number]) [address] [place] [address] #### HA1C #### [facility] ([id number]) [address] [place] [address], [address] [place], [place] [address]Pege nitrogen [Mass/Vol]18 mg/dLNormal5-27ProOhio State Health System HospitalComment on above:Performed By: #### WILLIAM, 49887-8, PINR, 26432-3, 55571- 7, 89347-8, 92644-9, THYR, 79275-1, CMP, 65498-6, 2156- #### [facility] ([id number]) [address] [place] [address] #### HA1C #### [facility] ([id number]) [address] [place] [address], [address] [place], [place] [address]MYAGPSOHDWBOrb 51-76-0849BSYQCSJBAMW0+AbnormalNONEProMedica Jesup HospitalComment on above:Performed By: #### CBCA, 08129-8, PINR, 92562-8, 54421-7, 49172-4, 77871-4, THYR, 10879-4, CMP, 06024-1, 2156-6 #### [facility] ([id number]) [address] [place] [address] #### HA1C #### [facility] ([id number]) [address], [address] [place], [place] [address]Viupyxllgfae Ql (Bld)2+AbnormalNONEProMedica [facility] Hospital Comment on above:Performed By: #### CBCA, 44529-7, PINR, 93391-5, 43961-7, 64495-7, 58756-0, THYR, 85600-2, CMP, 11411-1, 2156- #### [facility] ([id number]) [address] [place] [address] #### HA1C #### [facility] ([id number]) [address], [address] [place], [place] [address]Tnac form neutrophils/100 WBC (Bld)9.0 %NormalProMedica Southview Medical CenterComment on above:Performed By: #### CBCA, 73562-9, PINR, 15297-2, 82164- 7, 76522-6, 90843-5, THYR, 78194-0, CMP, 38100-6, 2156- #### [facility] ([id number]) [address] [place] [address] #### HA1C #### [facility] ([id number]) [address], [address] [place], [place] [address]KKZS3+AbnormalNONEProMedMarymount HospitalComment on above: Performed By: #### CBCA, 89797-0, PINR, 79686-8, 79398-0, 98239-7, 48895-8, THYR, 04146-6, CMP, 27108-0, 2156-12 #### [facility] ([id number]) [address] [place] [address] #### HA1C #### [facility] ([id number]) [address], [address] [place], [place] [address]Gjdycehyqwk (Bld) [#/Vol]0.1 10*3/uLNormal0.0-0.4ProMedica Jesup HospitalComment on above:Performed By: #### CBCA, 95491-6, PINR, 13891-0, 44767-2, 75651-3, 73856-3, THYR, 51820-5, CMP, 26116-8, 2157-6 #### [facility] ([id number]) [address] [place] [address] #### HA1C #### [facility] ([id number]) [address], [address] [place], [place] [address]Urgshqstxap/100 WBC (Bld)1.0 %NormalProOhio State Health System Hospital Comment on above:Performed By: #### CBCA, 67703-3, PINR, 21798-2, 23933-0, 37102-9, 11451-8, THYR, 25202-5, CMP, 73625-7, 2156-6 #### [facility] ([id number]) [address] [place] [address] #### HA1C #### [facility] ([id number]) [address], [address] [place], [place] [address]ERFTJPDB6+AbnormalNONEProMedica Jesup HospitalComment on above: Performed By: #### CBCA, 77526-1, PINR, 30300-8, 60441-7, 56954-3, 40060-1, THYR, 37750-3, CMP, 30002-1, 7-6 #### [facility] ([id number]) [address] [place] [address] #### HA1C #### [facility] ([id number]) [address], [address] [place], [place] [address]GASKCR-HCPIN BODY1+AbnormalNONEProMedica Jesup HospitalComment on above:Performed By: #### CBCA, 90294-2, PINR, 97796-3, 17866-5, 28439-2, 78021-1, THYR, 83387-6, CMP, 47605-9, 2157-6 #### [facility] ([id number]) [address] [place] [address] #### HA1C #### [facility] ([id number]) [address] [place] [address], [address] [place], [place] [address]BBQNMSADUPJ2+AbnormalNONEProMedica Jesup HospitalComment on above:Performed By: #### CBCA, 28049-1, PINR, 54544-9, 18529-0, 86739-6, 87219- 4, THYR, 25364-0, CMP, 17326-9, 7-6 #### [facility] ([id number]) [address] [place] [address] #### HA1C #### [facility] ([id number]) [address] [place] [address], [address] [place], [place] [address]DJIGGUMJXV, ATYPICAL1.0 %NormalProMedica Jesup HospitalComment on above:Performed By: #### CBCA, 85694-1, PINR, 91381-2, 56354-4, 36688-4, 38170-6, THYR, 28129-4, CMP, 93933-3, 2156-6 #### [facility] ([id number]) [address] [place] [address] #### HA1C #### [facility] ([id number]) [address] [place] [address], [address] [place], [place] [address]Tiatyvgbmrf (Bld) [#/Vol]1.6 10*3/uLNormal1.0-3.5ProMedica [facility] HospitalComment on above:Performed By: #### CBCA, 35958-5, PINR, 02669-9, 89766-9, 84195-7, 51184-9, THYR, 64954-3, CMP, 88982-6, 7-6 #### [facility] ([id number]) [address] [place] [address] #### HA1C #### [facility] ([id number]) [address] [place] [address], [address] [place], [place] [address]Gofaaskzuse/100 WBC (Bld)12.0 %[facility] Comment on above:Performed By: #### CBCA, 21451-1, PINR, 68499-4, 93351-0, 17844-9, 27381-7, THYR, 04071-5, CMP, 90950-1, 2156-6 #### [facility] ([id number]) [address] [place] [address] #### HA1C #### [facility] ([id number]) [address] [place] [address], [address] [place], [place] [address]Oqwxjxgig (Bld) [#/Vol]1.4 10*3/uLHigh0-0.9[facility]field HospitalComment on above:Performed By: #### CBCA, 04993-0, PINR, 94771-8, 28035- 7, 46015-2, 34095-0, THYR, 06153-0, CMP, 67336-1, 2156-6 #### [facility] ([id number]) [address] [place] [address] #### HA1C #### [facility] ([id number]) [address] [place] [address], [address] [place], [place] [address]Dyqavzarj/100 WBC (Bld)11.0 %[facility] Comment on above:Performed By: #### CBCA, 96821-3, PINR, 42794-2, 74089-0, 73526-1, 98963-4, THYR, 66114-2, CMP, 32027-1, 2157-6 #### [facility] ([id number]) [address] [place] [address] #### HA1C #### [facility] ([id number]) [address] [place] [address], [address] [place], [place] [address]Qqfcpuzmejg (Bld) [#/Vol]9.2 10*3/uLHigh1.5-6.6ProMedica Jesup HospitalComment on above:Performed By: #### CBCA, 32094-2, PINR, 65559-6, 81024- 7, 99680-6, 53975-3, THYR, 98862-9, CMP, 93133-2, 2156-6 #### [facility] ([id number]) [address] [place] [address] #### HA1C #### [facility] ([id number]) [address] [place] [address], [address] [place], [place] [address]PMXAAYCZDKSXK2+AbnormalNONEProMedica Jesup HospitalComment on above:Performed By: #### CBCA, 99624-6, PINR, 21068-2, 12094-3, 90943-4, 81176- 4, THYR, 91696-2, CMP, 67438-4, 2156-6 #### [facility] ([id number]) [address] [place] [address] #### HA1C #### [facility] ([id number]) [address] [place] [address], [address] [place], [place] [address]TPP PGYUHDKPFL72.0 %NormalProMedica Jesup HospitalComment on above:Performed By: #### CBCA, 01849-8, PINR, 67214-5, 94612-9, 34514-0, 22925- 4, THYR, 10850-6, CMP, 34882-3, 2156-6 #### [facility] ([id number]) [address] [place], [place] [id number] #### HA1C #### [facility] ([id number]) [address], [address] [place], [place] [address]JKIPTYAQVJ2+AbnormalNONEPRegional Medical Center HospitalComment on above:Performed By: #### WILLIAM, 31629-3, PINR, 56033-6, 81443-2, 24355-4, 09376- 4, THYR, 85924-5, CMP, 44064-8, 2157-6 #### [facility] ([id number]) [address] [place] [address] #### HA1C #### [facility] ([id number]) [address], [address] [place], [place] [address]HENUWF3+AbnormalNONEProMedDayton Osteopathic Hospital HospitalComment on above: Performed By: #### WILLIAM, 61941-4, PINR, 11591-1, 56039-7, 24753-9, 70467-7, THYR, 75878-8, CMP, 31831-8, 2157-6 #### [facility] ([id number]) [address] [place] [address] #### HA1C #### [facility] ([id number]) [address], [address] [place], [place] [address]Yehvrfr Glucometer (BldC) [Mass/Vol]on 79-69-8363Mlzmmnn [Mass/Vol]274 mg/kOEyia28-62VucFkhncrSelect Medical Specialty Hospital - CantonGlucose [Mass/Vol]426 mg/dL Critically dvir04-64GnhBmfaugSelect Medical Specialty Hospital - CantonGlucose [Mass/Vol]450 mg/dL Critically khap76-76BdfHacptn Toledo HospitalGlucose [Mass/Vol]245 mg/dLHigh 65-99ProSelect Medical Specialty Hospital - CantonHeparin unfractionated Chromogenic method Qn (PPP) on 82-75-3064ILXV XA UFH0.38 IU/mLNormal0.30-0.70[facility] Comment on above:Result Comment: Optimal time for testing is 6 hrs post dosage This test is specific for monitoring patients on UFH, and is not recommended for use with other Anti-Xa medications.Performed By: #### CBCA, 29679-3, PINR, 51263-6, 37258-2, 92954-9, 89916-4, THYR, 34456-1, CMP, 36597-4, 2157-6 #### [facility] ([id number]) [address] [place] [address] #### HA1C #### [facility] ([id number]) [address] [facility], [address] [place], [place] [address]ZEOI XA UFH0.44 IU/mLNormal0.30-0.70[facility] Comment on above:Result Comment: Optimal time for testing is 6 hrs post dosage This test is specific for monitoring patients on UFH, and is not recommended for use with other Anti-Xa medications.Performed By: #### WILLIAM, 20530-9, PINR, 86820-5, 53591-9, 79890-4, 69602-5, THYR, 81039-9, CMP, 09500-1, 2156-6 #### [facility] ([id number]) [address] [place] [address] #### HA1C #### [facility] ([id number]) [address] [facility], [address] [place], [place] [address]SXZUNDSYIxm 14-23-9452Drynakxyo [Mass/Vol]1.8 mg/dLNormal1.8-2.6 [facility] Medical CenterComment on above:Performed By: #### CBCA, 60743-7, PINR, 16887-1, 09399-8, 69441-9, 60056-9, THYR, 84744-6, CMP, 20071-1, 2157-6 #### [facility] ([id number]) [facility] [place] [address] #### HA1C #### [facility] ([id number]) [address], [address] [place], [place] [address]PVS AND AUTO DIFFon 49-23-8823NLRIIDVMVAA8+AbnormalNONEProMedDayton Osteopathic Hospital HospitalComment on above:Performed By: #### CBCA, 44848-6, PINR, 49870- 9, 31977-5, 78840-2, 06755-1, THYR, 37992-6, CMP, 77363-0, 2157-6 #### [facility] ([id number]) [address] [place] [address] #### HA1C #### [facility] ([id number]) [address], [address] [place], [place] [address]Yyometlndwzk Ql (Bld)2+AbnormalNONEPRegional Medical Center Hospital Comment on above:Performed By: #### CBCA, 73277-3, PINR, 40244-0, 01977-6, 48376-5, 67790-8, THYR, 38241-3, CMP, 81571-9, 2157-6 #### [facility] ([id number]) [address] [place] [address] #### HA1C #### [facility] ([id number]) [address], [address] [place], [place] [address]Puht form neutrophils/100 WBC (Bld)7.0 %NormalProMedica Jesup HospitalComment on above:Performed By: #### CBCA, 20240-2, PINR, 23877-4, 12628- 7, 99473-0, 83952-9, THYR, 51707-2, CMP, 52724-4, 2157-6 #### [facility] ([id number]) [address] [place], [place] [address] #### HA1C #### [facility] ([id number]) [address], [address] [place], [place] [address]ZNRU2+AbnormalNONEPRegional Medical Center HospitalComment on above: Performed By: #### CBCA, 97782-8, PINR, 36495-6, 13192-9, 40392-9, 18555-0, THYR, 68493-6, CMP, 86944-0, 2156-6 #### [facility] ([id number]) [address] [place] [address] #### HA1C #### [facility] ([id number]) [address] [place] [address], [address] [place], [place] [address]Pkrddoehwpw (Bld) [#/Vol]0.6 10*3/uLHigh0.0-0.4ProSelect Medical Specialty Hospital - CantonComment on above:Performed By: #### CBCA, 25144-3, PINR, 34954-8, 28688- 7, 81314-1, 48480-8, THYR, 86017-2, CMP, 03820-7, 2156- #### [facility] ([id number]) [address] [place] [address] #### HA1C #### [facility] ([id number]) [address] [place] [address], [address] [place], [place] [address]Yvbhfhxdwal/100 WBC (Bld)7.0 %NormalMansfield Hospital Comment on above:Performed By: #### CBCA, 23891-8, PINR, 29396-7, 07741-7, 00577-2, 69720-8, THYR, 03493-6, CMP, 89698-9, 2156- #### [facility] ([id number]) [address] [place] [address] #### HA1C #### [facility] ([id number]) [address] [place] [address], [address] [place], [place] [address]Cqcrtgsplhg distribution width (RBC) [Ratio]19.3 %High11.5-15.0 [facility] Medical CenterComment on above:Performed By: #### CBCA, 93249-8, PINR, 76047-7, 80519-5, 70163-7, 25608-5, THYR, 02993-8, CMP, 19405-7, 2156-6 #### [facility] ([id number]) [address] [place] [address] #### HA1C #### [facility] ([id number]) [address], [address] [place], [place] [address]MJZQJUDR6+AbnormalNONEProMedica Jesup HospitalComment on above: Performed By: #### CBCA, 40504-8, PINR, 89849-5, 40820-8, 33732-9, 76196-6, THYR, 25331-6, CMP, 49535-7, 2156- #### [facility] ([id number]) [address] [place] [address] #### HA1C #### [facility] ([id number]) [address], [address] [place], [place] [address]Hrqjaupyhh (Bld) [Volume fraction]29.9 %Kbr46-83NwnSygctq Toledo HospitalComment on above:Performed By: #### CBCA, 18646-9, PINR, 54351-1, 86386- 7, 27774-9, 12725-0, THYR, 26909-0, CMP, 92841-1, 2156- #### [facility] ([id number]) [address] [place] [address] #### HA1C #### [facility] ([id number]) [address], [address] [place], [place] [address]Wpmcrypzor (Bld) [Mass/Vol]10.0 g/dLLow13.0-17.0ProAvita Health System Bucyrus Hospitalca Jesup HospitalComment on above:Performed By: #### CBCA, 62361-6, PINR, 93984-6, 69101-1, 31105-8, 13969-7, THYR, 58932-5, CMP, 76404-1, 2157-6 #### [facility] ([id number]) [address] [place] [address] #### HA1C #### [facility] ([id number]) [address] [place] [address], [address] [place], [place] [address]AEMVLI-OTQAM BODY1+AbnormalNONEProMedica Jesup HospitalComment on above:Performed By: #### CBCA, 52415-9, PINR, 43727-5, 35729-2, 71353-3, 64422-5, THYR, 67804-8, CMP, 74492-2, 2157-6 #### [facility] ([id number]) [address] [place] [address] #### EVERARDO1C #### [facility] ([id number]) [address] [place] [address], [address] [place], [place] [address]RNBZOKYMGBE7+AbnormalNONEProMedica Jesup HospitalComment on above:Performed By: #### CBCA, 74136-1, PINR, 94270-1, 50004-2, 74668-6, 34135- 4, THYR, 37159-2, CMP, 55901-7, 2156-6 #### [facility] ([id number]) [address] [place] [address] #### HA1C #### [facility] ([id number]) [address] [place] [address], [address] [place], [place] [address]Zjwejwpyxud (Bld) [#/Vol]1.9 10*3/uLNormal1.0-3.5ProMedica Jesup HospitalComment on above:Performed By: #### CBCA, 91239-7, PINR, 33685-8, 75930-6, 66839-0, 81994-5, THYR, 83210-1, CMP, 57144-6, 2157-6 #### [facility] ([id number]) [address] [place] [address] #### HA1C #### [facility] ([id number]) [address], [address] [place], [place] [address]Fzkhamaobjd/100 WBC (Bld)23.0 %NormalMansfield Hospital Comment on above:Performed By: #### CBCA, 56158-4, PINR, 01237-2, 91559-9, 35480-4, 51668-3, THYR, 73418-2, CMP, 17749-7, 2156-6 #### [facility] ([id number]) [address] [place] [address] #### HA1C #### [facility] ([id number]) [address], [address] [place], [place] [address]RXI (RBC) [Entitic mass]24.8 qzAkw26-75UpnYomwttMansfield Hospital Comment on above:Performed By: #### CBCA, 58405-1, PINR, 69910-4, 74996-2, 55290-2, 27129-6, THYR, 93145-1, CMP, 09846-7, 2156-6 #### [facility] ([id number]) [address] [place] [address] #### HA1C #### [facility] ([id number]) [address], [address] [place], [place] [address]AUYA (RBC) [Mass/Vol]33.4 g/eHSuylgn41-91CpbSzajlfMansfield HospitalComment on above:Performed By: #### CBCA, 07244-9, PINR, 93978-0, 75861- 7, 55414-1, 23336-3, THYR, 87310-4, CMP, 70761-8, 2156-6 #### [facility] ([id number]) [address] [place] [address] #### HA1C #### [facility] ([id number]) [address], [address] [place], [place] [address]SHP (RBC) [Entitic vol]74 qJFli01-037TguArkksvMansfield Hospital Comment on above:Performed By: #### CBCA, 08599-0, PINR, 79066-2, 71727-0, 53414-2, 27055-4, THYR, 58288-2, CMP, 12449-1, 2157-6 #### [facility] ([id number]) [address] [place] [address] #### HA1C #### [facility] ([id number]) [address] [facility], [address] [place], [place] [address]Navctebfk (Bld) [#/Vol]0.6 10*3/uLNormal0-0.9Mansfield HospitalComment on above:Performed By: #### CBCA, 48971-8, PINR, 49642-4, 06360- 7, 18816-4, 54425-2, THYR, 84365-9, CMP, 91050-3, 7-6 #### [facility] ([id number]) [address] [place] [address] #### HA1C #### [facility] ([id number]) [address], [address] [place], [place] [address]Ukfownopw/100 WBC (Bld)7.0 %NormalProSelect Medical Specialty Hospital - [facility] Comment on above:Performed By: #### CBCA, 97441-1, PINR, 53458-1, 26365-5, 92291-8, 07154-1, THYR, 50176-5, CMP, 25262-7, 2156-6 #### [facility] ([id number]) [address] [place] [address] #### HA1C #### [facility] ([id number]) [address], [address] [place], [place] [address]Gtpevtaadbn (Bld) [#/Vol]5.1 10*3/uLNormal1.5-6.6ProMedica Stiles HospitalComment on above:Performed By: #### CBCA, 08386-6, PINR, 17191-8, 78069-6, 72007-2, 17491-3, THYR, 61346-1, CMP, 28824-0, 2157-6 #### [facility] ([id number]) [address] [place] [address] #### HA1C #### [facility] ([id number]) [address], [address] [place], [place] [address]Sgdvxpyn mean volume (Bld) [Entitic vol]10.1 fLNormal7-12 Pro[facility]ica Stiles HospitalComment on above:Performed By: #### CBCA, 57422-0, PINR, 09295-7, 88786-9, 59802-8, 15023-6, THYR, 02941-7, CMP, 90994-8, 2157-6 #### [facility] ([id number]) [address] [place] [address] #### HA1C #### [facility] ([id number]) [address], [address] [place], [place] [address]Tshbcpngo (Bld) [#/Vol]228 10*3/tNUrlgbu554-869FnhAtzmmo Jesup HospitalComment on above:Performed By: #### CBCA, 44979-3, PINR, 25876-4, 92568- 7, 01508-3, 79848-5, THYR, 57587-1, CMP, 88588-0, 2157-6 #### [facility] ([id number]) [address] [place] [address] #### HA1C #### [facility] ([id number]) [address], [address] [place], [place] [address]ZORRXKHDPDYGL6+AbnormalNONEProMedica Stiles HospitalComment on above:Performed By: #### CBCA, 55745-0, PINR, 53486-1, 57944-7, 64102-8, 98807- 4, THYR, 08217-6, CMP, 14128-2, 7-6 #### [facility] ([id number]) [address] [place] [address] #### HA1C #### [facility] ([id number]) [address] [place] [address], [address] [place], [place] [address]OXZ COUNT4.03 X10E12/LLow4.10-5.70ProAv[facility] Health [facility] Hospitalca [facility] Comment on above:Performed By: #### CBCA, 93823-5, PINR, 38381-2, 38178-2, 79098-2, 11382-9, THYR, 02844-5, CMP, 86293-4, 2156-6 #### [facility] ([id number]) [address] [place] [address] #### HA1C #### [facility] ([id number]) [address] [place] [address], [address] [place], [place] [address]JCB AZSTQJYDSP41.0 %NormalProSelect Medical Specialty Hospital - CantonComment on above:Performed By: #### CBCA, 21262-5, PINR, 22587-8, 22481-2, 21943-3, 93748- 4, THYR, 48816-1, CMP, 81633-1, 2156-6 #### [facility] ([id number]) [address] [place] [address] #### HA1C #### [facility] ([id number]) [address] [place] [address], [address] [place], [place] [address]MGGXMWODPA6+AbnormalNONEProMedica Jesup HospitalComment on above:Performed By: #### CBCA, 24376-3, PINR, 48199-1, 45712-8, 48505-6, 25248- 4, THYR, 90421-6, CMP, 40780-4, 2157-6 #### [facility] ([id number]) [address] [place] [address] #### HA1C #### [facility] ([id number]) [address] [place] [address], [address] [place], [place] [address]ARCSEG1+AbnormalNONEProMedica Jesup HospitalComment on above: Performed By: #### CBCA, 64138-8, PINR, 45990-3, 34522-9, 45918-4, 67731-0, THYR, 62552-8, CMP, 31793-5, 2157-6 #### [facility] ([id number]) [address] [place] [address] #### HA1C #### [facility] ([id number]) [address] [place] [address], [address] [place], [place] [address]CMN (Bld) [#/Vol]8.2 10*3/uLNormal4.0-11.0ProMedica Jesup HospitalComment on above:Performed By: #### CBCA, 19713-9, PINR, 35747-3, 88902- 7, 06151-7, 57210-9, THYR, 33881-6, CMP, 10434-2, 2157-6 #### [facility] ([id number]) [address] [place] [address] #### HA1C #### [facility] ([id number]) [address] [place] [address], [address] [place], [place] [address]SC [Catalytic activity/Vol]on 86-66-5566RTQ1426 U/YPcce20-440 ProMedica Jesup HospitalComment on above:Performed By: #### CBCA, 63313-8, PINR, 91269-4, 31672-3, 80682-5, 58606-9, THYR, 45061-4, CMP, 49350-7, 2157-6 #### [facility] ([id number]) [address] [place] [address] #### HA1C #### [facility] ([id number]) [address] [place] [address], [address] [place], [place] [address]XMC[address] U/KQdgw17-093JhiLwjkgpSelect Medical Specialty Hospital - CantonComment on above: Performed By: #### CBCA, 32461-0, PINR, 53873-4, 95563-1, 79817-2, 19006-1, THYR, 68191-3, CMP, 60999-1, 2157-6 #### [facility] ([id number]) [address] [place] [address] #### HA1C #### [facility] ([id number]) [address] [place] [address], [address] [place], [place] [address]EHH[address] U/EQkdq30-274OuoCjmnerSelect Medical Specialty Hospital - CantonComment on above: Performed By: #### CBCA, 03288-4, PINR, 80607-4, 80658-2, 26930-9, 37494-4, THYR, 43712-0, CMP, 38151-1, 2157-6 #### [facility] ([id number]) [address] [place] [address] #### HA1C #### [facility] ([id number]) [address] [place] [address], [address] [place] [id number] METABOLIC PANELon 46-62-8342Ocmkxux [Mass/Vol]3.4 g/dLNormal3.2-5.3[facility] CenterComdeckerville [facility] hospital on above:Performed By: #### CBCA, 68202-5, PINR, 64909-8, 19719-3, 24513-9, 65755-1, THYR, 50897-6, CMP, 63490-2, 2157-6 #### [facility] ([id number]) [address] [place] [address] #### HA1C #### [facility] ([id number]) [address], [address] [place], [place] [address]KZT [Catalytic activity/Vol]109 U/HIqrcxj87-387ZvcUdokep Jesup HospitalComment on above:Performed By: #### CBCA, 44824-4, PINR, 61806-4, 36516- 7, 85939-3, 75165-7, THYR, 34596-7, CMP, 70980-1, 2157-6 #### [facility] ([id number]) [address] [place], [place] [address] #### HA1C #### [facility] ([id number]) [address], [address] [place], [place] [address]XJG [Catalytic activity/Vol]27 U/LNormal0-40ProMedica Jesup HospitalComment on above:Performed By: #### DARRELLA, 46573-6, PINR, 85631-6, 25597- 7, 82515-6, 91695-2, THYR, 34096-0, CMP, 89788-4, 2157-6 #### [facility] ([id number]) [address] [place], [place] [address] #### HA1C #### [facility] ([id number]) [address], [address] [place], [place] [address]Yuinv gap [Moles/Vol]10 mmol/LNormal5-15ProMedica Jesup HospitalComment on above:Performed By: #### CBCA, 39015-8, PINR, 51851-7, 88507- 7, 73182-6, 18684-7, THYR, 98768-1, CMP, 98148-4, 2157-6 #### [facility] ([id number]) [address] [place], [place] [address] #### HA1C #### [facility] ([id number]) [address], [address] [place], [place] [address]XBL [Catalytic activity/Vol]69 U/LHigh0-41ProSelect Medical Specialty Hospital - CantonComment on above:Performed By: #### WILLIAM, 00854-8, PINR, 46409-7, 58615- 7, 86732-2, 00300-1, THYR, 73842-2, CMP, 77263-4, 2157-6 #### [facility] ([id number]) [address] [place] [address] #### HA1C #### [facility] ([id number]) [address] [place] [address], [address] [place], [place] [address]Firvmrahv [Mass/Vol]0.6 mg/dLNormal0.3-1.2PKettering Health HamiltonComment on above:Performed By: #### WILLIAM, 17786-9, PINR, 72026-1, 90090- 7, 44492-3, 35328-2, THYR, 41032-4, CMP, 01209-5, 7-6 #### [facility] ([id number]) [address] [place] [address] #### HA1C #### [facility] ([id number]) [address] [place] [address], [address] [place], [place] [address]Lmsdxhr [Mass/Vol]8.2 mg/dLLow8.5-10.5PKettering Health Hamilton Comment on above:Performed By: #### WILLIAM, 24328-4, PINR, 28216-1, 00010-4, 34514-4, 19786-6, THYR, 58573-9, CMP, 21818-9, 2157-6 #### [facility] ([id number]) [address] [place] [address] #### HA1C #### [facility] ([id number]) [address] [place] [address], [address] [place], [place] [address]Nicrqpua [Moles/Vol]105 mmol/FUuxtdt15-270YoqYcequg [facility]edo HospitalComment on above:Performed By: #### CBCA, 86236-2, PINR, 69193-4, 66177- 7, 12640-9, 63058-2, THYR, 16815-4, CMP, 04411-9, 2156-6 #### [facility] ([id number]) [address] [place] [address] #### HA1C #### [facility] ([id number]) [address] [place] [address], [address] [place], [place] [address]KP1 [Moles/Vol]20 mmol/ZBtl69-55RosOtfrnc Jesup HospitalComment on above:Performed By: #### CBCA, 69123-0, PINR, 89247-9, 71845-7, 82286-6, 29142-9, THYR, 26248-9, CMP, 77459-1, 2156-6 #### [facility] ([id number]) [address] [place] [address] #### HA1C #### [facility] ([id number]) [address] [place] [address], [address] [place], [place] [address]Evxwuganjy [Mass/Vol]0.79 mg/dLNormal0.60-1.30ProSelect Medical Specialty Hospital - CantonComment on above:Result Comment: METHOD TRACEABLE TO IDMS STANDARD Performed By: #### CBCA, 89037-1, PINR, 23021-0, 22974-9, 88565-1, 63525-2, THYR, 18741-3, CMP, 72530-0, 2156- #### [facility] ([id number]) [address] [place] [address] #### HA1C #### [facility] ([id number]) [address] [place] [address], [address] [place], [place] [address]WYF/1.73 sq M.predicted among non-blacks MDRD (S/P/Bld) [Vol rate/Area]87 mL/min/{1.73_m2}Normal>59ProMedica Jesup HospitalComment on above: Result Comment: Reported eGFR is based on the CKD-EPI 2020 equation that does not use a race coefficient.Performed By: #### WILLIAM, 07034-4, PINR, 77530-7, 52296-1, 73086-7, 17291-4, THYR, 95381-4, CMP, 15676-0, 215-6 #### [facility] ([id number]) [address] [place] [address] #### HA1C #### [facility] ([id number]) [address], [address] [place], [place] [address]Jcykrqw [Mass/Vol]189 mg/dVVhmo05-67HarFsnryvMansfield Hospital Comment on above:Performed By: #### WILLIAM, 87316-5, PINR, 72097-2, 95747-7, 52738-2, 79463-7, THYR, 30891-7, CMP, 44828-1, 2156- #### [facility] ([id number]) [address] [place] [address] #### HA1C #### [facility] ([id number]) [address], [address] [place], [place] [address]Kcoccoapa [Moles/Vol]4.3 mmol/LNormal3.5-5.0Mansfield HospitalComment on above:Performed By: #### WILLIAM, 17038-9, PINR, 61085-4, 04198- 7, 87526-7, 96109-3, THYR, 52583-9, CMP, 99246-2, 2156- #### [facility] ([id number]) [address] [place] [address] #### HA1C #### [facility] ([id number]) [address], [address] [place], [place] [address]Ovcxrjd [Mass/Vol]6.1 g/dLNormal6.0-8.0[facility] Comment on above:Performed By: #### CBCA, 12206-6, PINR, 60651-9, 80245-4, 22289-8, 12462-9, THYR, 92183-9, CMP, 07837-9, 2156-6 #### [facility] ([id number]) [address] [place] [address] #### HA1C #### [facility] ([id number]) [address] [facility], [address] [place], [place] [address]Oshzzm [Moles/Vol]135 mmol/YWrcuux188-010EptFhoczb [facility] HospitalComment on above:Performed By: #### CBCA, 95075-3, PINR, 36970-3, 20260- 7, 02050-6, 85030-1, THYR, 66519-0, CMP, 52949-1, 2156- #### [facility] ([id number]) [address] [place] [address] #### HA1C #### [facility] ([id number]) [address] [place] [address], [address] [place], [place] [address]Iqnm nitrogen [Mass/Vol]21 mg/dLNormal5-27ProSelect Medical Specialty Hospital - CantonComment on above:Performed By: #### CBCA, 83567-3, PINR, 02977-5, 00955- 7, 56658-0, 45474-6, THYR, 77968-6, CMP, 59146-5, 2156- #### [facility] ([id number]) [address] [place] [address] #### HA1C #### [facility] ([id number]) [address] [place] [address], [address] [place], [place] [address]Qbgqijs Glucometer (BldC) [Mass/Vol]on 06-41-4991Bmgbtfo [Mass/Vol]155 mg/hAPicj72-76TurWivkydSelect Medical Specialty Hospital - CantonGlucose [Mass/Vol]238 mg/dL Jrek20-25LcbWrvkak Stiles HospitalGlucose [Mass/Vol]413 mg/dLCritically high 65-99Mansfield HospitalGlucose [Mass/Vol]218 mg/lXZofq25-51HlnEieguhMansfield HospitalHeparin unfractionated Chromogenic method Qn (PPP)on 01-22-2024 ANTI XA UFH0.28 IU/mLLow0.30-0.70Mansfield HospitalComment on above: Result Comment: Optimal time for testing is 6 hrs post dosage This test is specific for monitoring patients on UFH, and is not recommended for use with other Anti-Xa medications.Performed By: #### CBCA, 48922-6, PINR, 53287-0, 97574-0, 40978-8, 34439-4, THYR, 79800-7, CMP, 22631-0, 2156-6 #### [facility] ([id number]) [address] [place] [address] #### HA1C #### [facility] ([id number]) [address] [place] [address], [address] [address]MAJL XA UFH0.24 IU/mLLow0.30-0.70[facility] Comment on above:Result Comment: Optimal time for testing is 6 hrs post dosage This test is specific for monitoring patients on UFH, and is not recommended for use with other Anti-Xa medications.Performed By: #### CBCA, 34371-3, PINR, 32160-5, 68802-5, 86264-7, 74824-7, THYR, 48226-0, CMP, 27860-4, 2156-6 #### [facility] ([id number]) [address] [place] [address] #### HA1C #### [facility] ([id number]) [address] [place] [address], [address] [place] [address]RJEP XA UFH0.23 IU/mLLow0.30-0.70[facility] Comment on above:Result Comment: Optimal time for testing is 6 hrs post dosage This test is specific for monitoring patients on UFH, and is not recommended for use with other Anti-Xa medications.Performed By: #### DARRELLA, 78052-5, PINR, 26447-7, 36646-3, 30259-6, 39470-2, THYR, 84509-8, CMP, 68498-3, 2157-6 #### [facility] ([id number]) [address] [place] [address] #### HA1C #### [facility] ([id number]) [address] [place] [address], [address] [place], [place] [address]Nfnvc 1996 panelon 68-63-6384Ngjbnnlnikc [Mass/Vol]97 mg/dLLow 150-200ProSelect Medical Specialty Hospital - CantonComment on above:Performed By: #### WILLIAM, 15742- 5, PINR, 46878-4, 54879-6, 90366-2, 95617-1, THYR, 98662-5, CMP, 83613-7, 2156- #### [facility] ([id number]) [address] [place] [address] #### HA1C #### [facility] ([id number]) [address] [place] [address], [address] [place], [place] [address]Grroiyitasz in HDL [Mass/Vol]50 mg/dLNormal>39ProSelect Medical Specialty Hospital - CantonComment on above:Result Comment: HDL <40 mg/dL - High Risk HDL > or = 40mg/dL- Desirable HDL >60 mg/dL - Negative Risk Performed By: #### DARRELLA, 67886-4, PINR, 59487-3, 24400-2, 46313-3, 94156-1, THYR, 73083-8, CMP, 97554-1, 7-6 #### [facility] ([id number]) [address] [place] [address] #### HA1C #### [facility] ([id number]) [address] [place] [address], [address] [place], [place] [address]Gazlcqkllpn in LDL [Mass/Vol]39 mg/dLNormal<130Pro[facility] Hospital - CantonComment on above:Result Comment: LDL <100 mg/dL - Desirable LDL >160 mg/dL - High Risk Performed By: #### WILLIAM, 54454-3, PINR, 87114-9, 76520-4, 43977-0, 46482-1, THYR, 18923-8, CMP, 48482-0, 7-6 #### [facility] ([id number]) [address] [place] [address] #### HA1C #### [facility] ([id number]) [address] [place] [address], [address] [place], [place] [address]Wpvyznjrgqw in VLDL [Mass/Vol]8 mg/dLNormal0-30Pro[facility] Hospital - CantonComment on above:Performed By: #### WILILAM, 80456-0, PINR, 97707-9, 98312- 7, 20108-3, 80171-7, THYR, 26671-3, CMP, 89747-4, 2157-6 #### [facility] ([id number]) [address] [place] [address] #### HA1C #### [facility] ([id number]) [address] [place] [address], [address] [place], [place] [address]NFJFGMTTRBJ:HDL1.9Rvsfzj2.0-5.0ProSelect [facility] Specialty Hospital - CantonComment on above:Performed By: #### WILLIAM, 44105-2, PINR, 63119-7, 43471-5, 44896-4, 26058-3, THYR, 28160-2, CMP, 42986-2, 2157-6 #### [facility] ([id number]) [address] [place] [address] #### HA1C #### [facility] ([id number]) [address], [address] [place], [place] [address]Dvwsukqxxydc [Mass/Vol]38 mg/kCTtjrjb47-982TmpOlgxoj Jesup HospitalComment on above:Performed By: #### CBCA, 35546-5, PINR, 64662-6, 87437- 7, 13218-0, 48102-6, THYR, 70344-3, CMP, 38122-9, 2156-6 #### [facility] ([id number]) [address] [place] [address] #### HA1C #### [facility] ([id number]) [address], [address] [place], [place] [address]QQHWRNJWTcf 25-08-2021Zghsqwgjv [Mass/Vol]2.0 mg/dLNormal1.8-2.6 [facility] HospitalComment on above:Performed By: #### CBCA, 99358-1, PINR, 96064-4, 99553-1, 00394-4, 45345-8, THYR, 65181-7, CMP, 28512-2, 2156-6 #### [facility] ([id number]) [address] [place] [address] #### HA1C #### [facility] ([id number]) [address], [address] [place], [place] [address]Dlfpztgyy [Mass/Vol]2.2 mg/dLNormal1.8-2.6Pro[facility]ica Jesup HospitalComment on above:Performed By: #### CBCA, 05797-0, PINR, 63449-0, 35425- 7, 40863-8, 04674-6, THYR, 01091-1, CMP, 59495-1, 7-6 #### [facility] ([id number]) [address] [place] [address] #### HA1C #### [facility] ([id number]) [address] [place] [address], [address] [place] [address]Zqhcehkxmbbmt [place] [Mass/Vol]on 45-60-3964AQABXHFPFSYNR2.08 ng/mL High<0.05ProSelect [facility] Specialty Hospital - CantonComment on above:Result Comment: NOTE <0.50 ng/mL - Low risk of severe sepsis and/or septic shock. <2.00 ng/mL - Recommend retesting within 6-24 hours. >2.00 ng/mL - High risk of sepsis and/or septic shock.Performed By: #### CBCA, 87715-6, PINR, 53715-1, 38642-4, 26069-3, 45981-3, THYR, 95201-4, CMP, 25096-4, 2156-6 #### [facility] ([id number]) [address] [place] [address] #### HA1C #### [facility] ([id number]) [address] [place] [address], [address] [address]Vloatyvb I.cardiac High sensitivity method [Mass/Vol]on 43 HOUR TROP I, HIGH SAKPZEMZFYT65 ng/LHigh<21[facility] [place] Comment on above:Result Comment: Elevations of hs-Troponin may be due to causes other than myocardial ischemia. Recommend serial hs-Troponin testing be performed. For the initial evaluation and management of chest pain patients, refer to the algorithms linked below. Emergency Patient: [email or web address] Inpatient: [email or web address] By: #### CBCA, 73420-2, PINR, 38727-5, 01642-9, 31204-3, 45107-0, THYR, 66848- 1, CMP, 33588-7, 2157-6 #### [facility] ([id number]) [address] [place] [address] #### HA1C #### [facility] ([id number]) [address] [place], [place] [address] HOUR TROP I, HIGH TVVOOIRATBC36 ng/LHigh<21[facility] Medical CenterComment on above:Result Comment: Elevations of hs-Troponin may be due to causes other than myocardial ischemia. Recommend serial hs-Troponin testing be performed. For the initial evaluation and management of chest pain patients, refer to the algorithms linked below. Emergency Patient: [email or web address] Inpatient: [email or web address] By: #### CBCA, 78784-3, PINR, 57546-7, 15954-6, 45494-1, 37345-3, THYR, 44197- 1, CMP, 47182-7, 2157-6 #### [facility] ([id number]) [address] [place] [address] #### HA1C #### [facility] ([id number]) [address], [address] [place], [place] [address]VO WRIST LT MIN 3 VWSon 55-59-6298PX WRIST LT MIN 3 VWSXR WRIST LT [...] Liam Cody MD on 01/22/2024 10:33 PMNormalProMedica Jesup HospitalBLOOD CULTUREon 91-25-1554Ceqvsbul identified Aer cx Nom (Bld)CULTURE RESULTS NO GROWTH 5 DAYSNormalProSelect [facility]onBacteria identified Aer cx Nom (Bld)CULTURE RESULTS NO GROWTH 5 DAYSNormalProSelect Medical Specialty Hospital - CantonCBC AND AUTO DIFFon 01-21-2024 ABSOLUTE BASOPHIL0.1 X10E9/LNormal0.0-0.2ProMedica Southview Medical CenterComment on above:Performed By: #### CBCA, 75741-4, PINR, 11140-3, 55030-7, 08674-9, 96062- 4, THYR, 10176-6, CMP, 68197-6, 2157-6 #### [facility] ([id number]) [address] [place] [address] #### HA1C #### [facility] ([id number]) [address] [place] [address], [address] [place] [address]BHZDKOWB NEUTROPHIL7.7 X10E9/LHigh1.5-6.6ProMediBlanchard Valley Health System Bluffton HospitalComment on above:Performed By: #### CBCA, 65664-5, PINR, 52995-4, 92902- 7, 89935-4, 30724-0, THYR, 34151-0, CMP, 56220-1, 2157-6 #### [facility] ([id number]) [address] [place] [address] #### HA1C #### [facility] ([id number]) [address] [place] [address], [address] [place], [place] [address]Txfvlvlkqhmm Ql (Bld)2+AbnormalNONEPKettering Health Hamilton Comment on above:Performed By: #### CBCA, 97978-0, PINR, 31482-6, 51290-8, 07841-2, 51957-1, THYR, 64833-0, CMP, 51370-6, 2157-6 #### [facility] ([id number]) [address] [place] [address] #### HA1C #### [facility] ([id number]) [address], [address] [place], [place] [address]Fibukngid/100 WBC (Bld)0.8 %NormalProSelect Medical [facility]on Comment on above:Performed By: #### CBCA, 80749-4, PINR, 06727-0, 71437-1, 15368-1, 33597-1, THYR, 91812-1, CMP, 97514-0, 2157-6 #### [facility] ([id number]) [address] [place] [address] #### HA1C #### [facility] ([id number]) [address] [facility], [address] [place], [place] [address]VGZC5+AbnormalNONEPRegional Medical Center HospitalComment on above: Performed By: #### CBCA, 31905-1, PINR, 08829-3, 90302-2, 45493-7, 16788-6, THYR, 66843-2, CMP, 36656-8, 2157-6 #### [facility] ([id number]) [address] [place], [place] [address] #### HA1C #### [facility] ([id number]) [address], [address] [place], [place] [address]Xxaanjrxgpm (Bld) [#/Vol]0.1 10*3/uLNormal0.0-0.4ProSelect Medical Specialty Hospital - CantonComment on above:Performed By: #### CBCA, 92093-7, PINR, 37176-8, 44113-1, 83376-0, 48888-3, THYR, 71173-4, CMP, 52534-5, 7-6 #### [facility] ([id number]) [address] [place] [address] #### HA1C #### [facility] ([id number]) [address], [address] [place], [place] [address]Fejvgnsufsr/100 WBC (Bld)0.7 %NormalProMedica Southview Medical Center Comment on above:Performed By: #### CBCA, 59785-9, PINR, 67153-6, 12807-7, 44707-6, 81292-2, THYR, 93041-5, CMP, 85752-9, 2156-6 #### [facility] ([id number]) [address] [place] [address] #### HA1C #### [facility] ([id number]) [address] [facility], [address] [place], [place] [address]Hbegdhstvhk distribution width (RBC) [Ratio]19.9 %High11.5-15.0 ProMedica Southview Medical CenterComment on above:Performed By: #### CBCA, 82223-6, PINR, 83952-3, 95869-4, 97596-8, 28015-9, THYR, 66278-2, CMP, 15449-6, 2156-6 #### [facility] ([id number]) [address] [place] [address] #### HA1C #### [facility] ([id number]) [address] [place] [address], [address] [place], [place] [address]NNZULSTT8+AbnormalNONEProMedica Southview Medical CenterComment on above: Performed By: #### CBCA, 27611-1, PINR, 64383-8, 38838-5, 58625-0, 73505-0, THYR, 13395-8, CMP, 21674-7, 2157-6 #### [facility] ([id number]) [address] [place] [address] #### HA1C #### [facility] ([id number]) [address], [address] [place], [place] [address]Lzvhdosbff (Bld) [Volume fraction]31.3 %Cwp89-25EreRpjjro [place]edo HospitalComment on above:Performed By: #### CBCA, 55201-4, PINR, 50718-7, 18890- 7, 36232-2, 96271-9, THYR, 48040-7, CMP, 28484-3, 2156-6 #### [facility] ([id number]) [address] [place] [address] #### HA1C #### [facility] ([id number]) [address], [address] [place], [place] [address]Dxtywawiiq (Bld) [Mass/Vol]10.5 g/dLLow13.0-17.0ProOhio State Health System HospitalComment on above:Performed By: #### CBCA, 11225-6, PINR, 29195-9, 83433-0, 83787-7, 54316-8, THYR, 08891-9, CMP, 98237-1, 2156- #### [facility] ([id number]) [address] [place] [address] #### HA1C #### [facility] ([id number]) [address], [address] [place], [place] [address]NBZXSOABETR7+AbnormalNONEProMedica Jesup HospitalComment on above:Performed By: #### CBCA, 03572-5, PINR, 27709-7, 92407-5, 30954-4, 79508- 4, THYR, 76535-9, CMP, 61063-8, 2156- #### [facility] ([id number]) [address] [place] [address] #### HA1C #### [facility] ([id number]) [address] [place] [address], [address] [place], [place] [address]Rihpktneryi (Bld) [#/Vol]1.2 10*3/uLNormal1.0-3.5ProMedica Southview Medical CenterComment on above:Performed By: #### CBCA, 01045-6, PINR, 19854-5, 30223-5, 56302-2, 10781-4, THYR, 54639-6, CMP, 67005-3, 2157-6 #### [facility] ([id number]) [address] [place] [address] #### HA1C #### [facility] ([id number]) [address] [place] [address], [address] [place], [place] [address]Gfqqynvaeva/100 WBC (Bld)11.9 %NormalMansfield Hospital Comment on above:Performed By: #### CBCA, 35369-9, PINR, 29211-9, 90577-6, 71371-4, 29473-9, THYR, 43684-2, CMP, 43675-1, 2157-6 #### [facility] ([id number]) [address] [place] [address] #### HA1C #### [facility] ([id number]) [address] [place] [address], [address] [place], [place] [address]DDL (RBC) [Entitic mass]24.8 ucJgh94-58IlfKirkxcMansfield Hospital Comment on above:Performed By: #### CBCA, 64539-0, PINR, 33316-6, 66151-0, 51625-5, 42040-4, THYR, 05098-5, CMP, 30719-8, 2157-6 #### [facility] ([id number]) [address] [place] [address] #### HA1C #### [facility] ([id number]) [address], [address] [place], [place] [address]ZACX (RBC) [Mass/Vol]33.6 g/zTIovyqc04-52FzeMgqjmk [place] HospitalComment on above:Performed By: #### CBCA, 90276-2, PINR, 25940-0, 14908- 7, 99180-0, 13104-0, THYR, 72417-9, CMP, 18791-8, 2157-6 #### [facility] ([id number]) [address] [place] [address] #### HA1C #### [facility] ([id number]) [address], [address] [place], [place] [address]YVT (RBC) [Entitic vol]74 cYEfq17-247TdiJrehhq [facility] Comment on above:Performed By: #### CBCA, 23039-4, PINR, 80122-7, 89571-9, 66576-1, 46379-1, THYR, 56256-0, CMP, 20362-8, 2157-6 #### [facility] ([id number]) [address] [place] [address] #### HA1C #### [facility] ([id number]) [address], [address] [place], [place] [address]Nhvygqaus (Bld) [#/Vol]1.2 10*3/uLHigh0-0.9ProSelect Medical Specialty Hospital - CantonComment on above:Performed By: #### CBCA, 23399-9, PINR, 47344-1, 86236- 7, 46140-1, 71963-8, THYR, 83855-8, CMP, 30673-6, 2157-6 #### [facility] ([id number]) [address] [place] [address] #### HA1C #### [facility] ([id number]) [address], [address] [place], [place] [address]Qkajvdjet/100 WBC (Bld)12.0 %[facility] Comment on above:Performed By: #### CBCA, 44404-3, PINR, 82471-4, 05816-3, 52736-8, 62460-7, THYR, 69155-7, CMP, 62233-1, 2157-6 #### [facility] ([id number]) [address] [place] [address] #### HA1C #### [facility] ([id number]) [address] [facility], [address] [place], [place] [address]Cjhrhbfmbia/100 WBC (Bld)74.6 %[facility] Comment on above:Performed By: #### CBCA, 77548-2, PINR, 55817-6, 91186-7, 59619-1, 79010-5, THYR, 91306-4, CMP, 09244-5, 7-6 #### [facility] ([id number]) [address] [place] [address] #### HA1C #### [facility] ([id number]) [address] [facility], [address] [place], [place] [address]Mgweiwxc mean volume (Bld) [Entitic vol]10.1 fLNormal7-12 ProMPremier Health Miami Valley Hospital SouthComment on above:Performed By: #### CBCA, 46699-6, PINR, 99261-8, 50902-0, 12113-8, 60971-4, THYR, 69872-9, CMP, 64602-3, 7-6 #### [facility] ([id number]) [address] [place] [address] #### HA1C #### [facility] ([id number]) [address], [address] [place], [place] [address]Mjukywcti (Bld) [#/Vol]252 10*3/zACrkvqw321-769WmoBwhuev Jesup HospitalComment on above:Performed By: #### CBCA, 32945-3, PINR, 03041-9, 74622- 7, 48127-8, 99492-1, THYR, 83695-0, CMP, 23565-5, 2157-6 #### [facility] ([id number]) [address] [place] [address] #### HA1C #### [facility] ([id number]) [address] [facility], [address] [place], [place] [address]JTZMPDEQKFTTZ5+AbnormalNONEProMedica Jesup HospitalComment on above:Performed By: #### CBCA, 62128-4, PINR, 46562-6, 46608-2, 35069-4, 68642- 4, THYR, 17528-8, CMP, 43385-6, 7-6 #### [facility] ([id number]) [address] [place] [address] #### HA1C #### [facility] ([id number]) [address] [place] [address], [address] [place], [place] [address]UBY COUNT4.24 X10E12/LNormal4.10-5.70ProSelect [facility] Comment on above:Performed By: #### CBCA, 80387-9, PINR, 54962-9, 50267-8, 87849-8, 31852-5, THYR, 54508-1, CMP, 06629-1, 2157-6 #### [facility] ([id number]) [address] [place] [address] #### HA1C #### [facility] ([id number]) [address] [place] [address], [address] [place], [place] [address]DKPPFL8+AbnormalNONEProMedica Jesup HospitalComment on above: Performed By: #### CBCA, 16192-1, PINR, 81333-0, 62453-1, 90428-8, 41837-7, THYR, 85874-5, CMP, 34350-8, 2157-6 #### [facility] ([id number]) [facility] [place] [address] #### HA1C #### [facility] ([id number]) [address], [address] [place], [place] [address]MKV (Bld) [#/Vol]10.3 10*3/uLNormal4.0-11.0ProMedica Stiles HospitalComment on above:Performed By: #### CBCA, 82831-0, PINR, 64466-8, 47489- 7, 90644-0, 09370-1, THYR, 39749-1, CMP, 75626-0, 2157-6 #### [facility] ([id number]) [address] [place] [address] #### HA1C #### [facility] ([id number]) [address], [address] [place], [place] [address] [Catalytic activity/Vol]on 88-95-9424MMH0909 U/IIdnj51-277 ProMedica Jes[facility] HospitalComment on above:Performed By: #### CBCA, 20250-2, PINR, 61069-1, 14944-5, 94821-0, 22988-9, THYR, 32049-4, CMP, 24164-4, 2157-6 #### [facility] ([id number]) [address] [place] [address] #### HA1C #### [facility] ([id number]) [address] [place] [address], [address] [place], [place] [address] U/OQurt30-094EafAokccu Stiles HospitalComment on above: Performed By: #### CBCA, 67202-9, PINR, 96730-2, 35306-1, 08181-5, 74792-6, THYR, 55290-3, CMP, 02712-4, 2157-6 #### [facility] ([id number]) [address] [place] [address] #### HA1C #### [facility] ([id number]) [address] [place] [address], [address] [place], [place] [address]SLPFWKWWYUKAU METABOLIC PANELon 73-93-3020Hdfulap [Mass/Vol]3.6 g/dLNormal3.2-5.3ProMedica Jesup HospitalComment on above:Performed By: #### CBCA, 44731-3, PINR, 45601-9, 80464-3, 87153-6, 77105-0, THYR, 98381-7, CMP, 58898-2, 2157-6 #### [facility] ([id number]) [address] [place] [address] #### HA1C #### [facility] ([id number]) [address] [place] [address], [address] [place], [place] [address]XKN [Catalytic activity/Vol]118 U/KNcprme86-659OwgVpbqpi [facility] HospitalComment on above:Performed By: #### CBCA, 57268-3, PINR, 73779-6, 39593- 7, 31854-7, 23360-5, THYR, 36024-3, CMP, 75244-1, 2157-6 #### [facility] ([id number]) [address] [place] [address] #### HA1C #### [facility] ([id number]) [address] [place] [address], [address] [place], [place] [address]BCB [Catalytic activity/Vol]26 U/LNormal0-40ProMediMiddletown Hospital HospitalComment on above:Performed By: #### CBCA, 28338-2, PINR, 80290-9, 43384- 7, 14585-6, 58386-4, THYR, 70564-3, CMP, 12100-6, 2157-6 #### [facility] ([id number]) [address] [place] [address] #### HA1C #### [facility] ([id number]) [address] [place] [address], [address] [place], [place] [address]Kyzqr gap [Moles/Vol]9 mmol/LNormal5-15ProSelect [facility] Comment on above:Performed By: #### CBCA, 11316-1, PINR, 80232-9, 80659-3, 89432-0, 07949-9, THYR, 11986-5, CMP, 25985-7, 2156-12 #### [facility] ([id number]) [address] [place] [address] #### EVERARDO1C #### [facility] ([id number]) [address] [place] [address], [address] [place], [place] [address]VNP [Catalytic activity/Vol]62 U/LHigh0-41ProSelect Medical Special[facility] Hospital - CantonComment on above:Performed By: #### CBCA, 38164-7, PINR, 28505-2, 58069- 7, 92523-0, 58985-6, THYR, 41452-9, CMP, 04145-2, 2156-12 #### [facility] ([id number]) [address] [place] [address] #### HA1C #### [facility] ([id number]) [address] [place] [address], [address] [place], [place] [address]Vulggtdbo [Mass/Vol]0.6 mg/dLNormal0.3-1.2ProMedica Southview Medical CenterComment on above:Performed By: #### CBCA, 02846-2, PINR, 57505-1, 77841- 7, 89472-3, 07065-1, THYR, 06760-5, CMP, 14337-5, 2156- #### [facility] ([id number]) [address] [place], [place] [address] #### HA1C #### [facility] ([id number]) [address], [address] [place], [place] [address]Fncojek [Mass/Vol]8.3 mg/dLLow8.5-10.5PKettering Health Hamilton Comment on above:Performed By: #### CBCA, 96393-4, PINR, 03048-0, 60622-4, 63844-1, 40231-9, THYR, 12836-0, CMP, 37050-4, 2157-6 #### [facility] ([id number]) [address] [place] [address] #### HA1C #### [facility] ([id number]) [address], [address] [place], [place] [address]Fzfurtvz [Moles/Vol]102 mmol/VLlcgzl57-902BdlDeetjc Southview Medical CenterComment on above:Performed By: #### CBCA, 26165-2, PINR, 26958-6, 11826- 7, 15085-5, 79237-4, THYR, 77656-9, CMP, 24744-0, 2156-6 #### [facility] ([id number]) [address] [place] [address] #### HA1C #### [facility] ([id number]) [address], [address] [place], [place] [address]PP3 [Moles/Vol]22 mmol/XOjccuk75-45KrbYljkwgKettering Health Hamilton Comment on above:Performed By: #### CBCA, 72182-8, PINR, 62423-8, 97369-0, 47354-9, 44987-7, THYR, 87102-4, CMP, 49563-7, 2156-6 #### [facility] ([id number]) [address] [place] [address] #### HA1C #### [facility] ([id number]) [address], [address] [place], [place] [address]Aiqcfmhylv [Mass/Vol]0.83 mg/dLNormal0.60-1.30ProSelect Medical Specialty Hospital - CantonComment on above:Result Comment: METHOD TRACEABLE TO IDMS STANDARD Performed By: #### WILLIAM, 35503-2, PINR, 91200-0, 04832-8, 83217-1, 21190-6, THYR, 85079-5, CMP, 92748-1, 7-6 #### [facility] ([id number]) [address] [place] [address] #### HA1C #### [facility] ([id number]) [address] [place] [address], [address] [address]ZWL/1.73 sq M.predicted among non-blacks MDRD (S/P/Bld) [Vol rate/Area]85 mL/min/{1.73_m2}Normal>59ProSelect Medical Specialty Hospital - CantonComment on above: Result Comment: Reported eGFR is based on the CKD-EPI 2020 equation that does not use a race coefficient.Performed By: #### WILLIAM, 29166-4, PINR, 16148-8, 88939-4, 37334-5, 72118-1, THYR, 17444-9, CMP, 59074-8, 2156-6 #### [facility] ([id number]) [address] [place] [address] #### HA1C #### [facility] ([id number]) [address] [place] [address], [address] [place], [place] [address]Zvbxshn [Mass/Vol]270 mg/iRDqaa96-35RxaDwlfvlMansfield Hospital Comment on above:Performed By: #### DARRELLA, 55060-0, PINR, 15670-4, 62316-7, 88865-4, 43944-8, THYR, 07391-8, CMP, 26637-4, 2156-6 #### [facility] ([id number]) [address] [place] [address] #### HA1C #### [facility] ([id number]) [address] [facility], [address] [place], [place] [address]Lrurpwrmv [Moles/Vol]4.5 mmol/LNormal3.5-5.0Mansfield HospitalComment on above:Performed By: #### CBCA, 31969-5, PINR, 56485-0, 19671- 7, 21290-0, 59722-2, THYR, 01152-7, CMP, 16496-9, 2156-6 #### [facility] ([id number]) [address] [place] [address] #### HA1C #### [facility] ([id number]) [address] [place] [address], [address] [place], [place] [address]Besnkjx [Mass/Vol]6.4 g/dLNormal6.0-8.0[facility] Comment on above:Performed By: #### CBCA, 36682-4, PINR, 67260-5, 50944-1, 13841-4, 23146-4, THYR, 21556-0, CMP, 78104-6, 2156- #### [facility] ([id number]) [address] [place] [address] #### HA1C #### [facility] ([id number]) [address] [place] [address], [address] [place], [place] [address]Cuwqdu [Moles/Vol]133 mmol/SXfw372-977OplFduinxSelect Medical Specialty Hospital [facility] Comment on above:Performed By: #### CBCA, 83619-9, PINR, 12571-9, 18906-9, 22140-9, 27754-7, THYR, 86542-6, CMP, 53684-8, 2156- #### [facility] ([id number]) [address] [place] [address] #### HA1C #### [facility] ([id number]) [address] [place], [place] [address]Wmln nitrogen [Mass/Vol]23 mg/dLNormal5-27ProSelect Medical Specialty Hospital - CantonComment on above:Performed By: #### CBCA, 04161-8, PINR, 67393-9, 08742- 7, 49099-1, 00061-8, THYR, 46592-3, CMP, 13262-8, 2157-6 #### [facility] ([id number]) [address] [place] [address] #### HA1C #### [facility] ([id number]) [address], [address] [place], [place] [address]CK CTA CHESTon 41-56-8882LO CTA CHESTCT CTA CHEST CLINICAL INFORMATION: Pulmonary [...] by Arturo Alvarado MD on 01/21/2024 2:10 PMNormalProSelect Medical Specialty Hospital - CantonFibrin D-dimer DDU (PPP) [Mass/Vol]on 01-21-2024 QZXPO6327 ng/mL DDU High<255Mansfield HospitalComment on above:Result Comment: Results >=255ng/mL DDU: Results may be indicative of the presence of VTE. The use of the Wells score and further diagnostic tests should be considered. Elevated D-Dimer levels can also be associated with DIC, neoplasm, , trauma and liver disease. Elevated levels of rheumatoid factor may lead to an overestimation of the D-Dimer level.Performed By: #### CBCA, 55698-1, PINR, 32111-7, 55931-6, 88899-7, 58348-9, THYR, 24916-1, CMP, 75417-0, 2157-6 #### [facility] ([id number]) [address] [place] [address] #### HA1C #### [facility] ([id number]) [address] [place] [address], [address] [place], [place] [address]Kkhifls Glucometer (BldC) [Mass/Vol]on 12-81-4228Zxwcfum [Mass/Vol]305 mg/ePAzph70-98BlfSjluaeSelect Medical Specialty Hospital - CantonGlucose [Mass/Vol]296 mg/dL Ntzl66-67AgcWzrnyzSelect Medical Specialty Hospital - CantonGlucose [Mass/Vol]266 mg/lSIlkl81-66McnChoagnSelect Medical Specialty Hospital - CantonHGB A1C (GLYCO-HGB)on 96-31-9999Zghjwxn [Mass/Vol]229 mg/dLNormal Mansfield HospitalComment on above:Performed By: #### CBCA, 35783-3, PINR, 65418-1, 01933-1, 59517-8, 36402-6, THYR, 14838-5, CMP, 38505-3, 2157-6 #### [facility] ([id number]) [address] [place] [address] #### HA1C #### [facility] ([id number]) [address] [place] [address], [address] [place], [place] [address]TtL7l (Bld) [Mass fraction]9.6 %High4.4-5.6Mansfield HospitalComment on above:Result Comment: NOTE ADA Guidelines Result HgbA1c Normal : less than 5.7 % Prediabetes : 5.7 % to 6.4 % Diabetes : > 6.4 % Use with caution in patients with abnormal hemoglobin variants as the half-life of red blood cells and in vivo glycation rates are affected.Performed By: #### CBCA, 36729-7, PINR, 99122-8, 40939-8, 20550-6, 72926-3, THYR, 24427-6, CMP, 44182-5, 7-6 #### [facility] ([id number]) [address] [place] [address] #### HA1C #### [facility] ([id number]) [address] [place] [address], [address] [place] [address]Omtlwuc unfractionated Chromogenic method Qn (PPP)on 01-21-2024 ANTI XA UFH0.22 IU/mLLow0.30-0.70Mansfield HospitalComment on above: Result Comment: Optimal time for testing is 6 hrs post dosage This test is specific for monitoring patients on UFH, and is not recommended for use with other Anti-Xa medications.Performed By: #### CBCA, 15806-5, PINR, 96629-9, 30270-6, 24602-7, 04150-2, THYR, 45690-1, CMP, 63160-3, 2156- #### [facility] ([id number]) [address] [place] [address] #### HA1C #### [facility] ([id number]) [address] [place] [address], [address] [place], [place] [address]DPZX XA UFH0.19 IU/mLLow0.30-0.70[facility] Comment on above:Result Comment: Optimal time for testing is 6 hrs post dosage This test is specific for monitoring patients on UFH, and is not recommended for use with other Anti-Xa medications.Performed By: #### CBCA, 85058-3, PINR, 00639-0, 31682-8, 43660-0, 50574-3, THYR, 42579-6, CMP, 83795-2, 2156-6 #### [facility] ([id number]) [address] [place] [address] #### HA1C #### [facility] ([id number]) [address] [place] [address], [address] [place], [place] [address]Wrisedc (P bobo) [Moles/Vol]on 26-90-6563EYTEGZT W/REFLEX1.2 mmol/LNormal0.4-2.0ProMedica Jesup HospitalComment on above:Result Comment: Result did not trigger repeat Lactate, re-order if needed.Performed By: #### WILLIAM, 96252-4, PINR, 27521-5, 76060-5, 31234-6, 48657-7, THYR, 41265-6, CMP, 94623-8, 2156-6 #### [facility] ([id number]) [address] [place] [address] #### HA1C #### [facility] ([id number]) [address] [place] [address], [address] [place], [place] [address]MQCRYKHSCcq 25-08-3020Ylfgaudug [Mass/Vol]1.6 mg/dLLow1.8-2.6 [facility]view Medical CenterComment on above:Performed By: #### WILLIAM, 87169-4, PINR, 08608-1, 56390-1, 60390-9, 97093-8, THYR, 52692-0, CMP, 82150-0, 2156-6 #### [facility] ([id number]) [address] [place] [address] #### HA1C #### [facility] ([id number]) [address] [place] [address], [address] [place], [place] [address]Nmryyjzsijb peptide B [Mass/Vol]on 42-67-0478Zcwuxpyadoo peptide B (Bld) [Mass/Vol]1320 pg/mLHigh<100.0ProMedica Jesup HospitalComment on above:Performed By: #### WILLIAM, 65270-1, PINR, 91391-6, 28051-5, 39853-3, 33189- 4, THYR, 21848-9, CMP, 28404-7, 2157-6 #### [facility] ([id number]) [facility] [place] [address] #### HA1C #### [facility] ([id number]) [address] [place], [place] [address]DEWMQIO AND INRon 46-47-9539EON Coag (PPP) [Relative time]1.2 {INR}High0.8-1.1PKettering Health HamiltonComment on above:Performed By: #### CBCA, 69333-7, PINR, 35363-2, 44917-8, 17431-7, 60962-4, THYR, 25741-2, CMP, 23251-3, 2157-6 #### [facility] ([id number]) [address] [place] [address] #### HA1C #### [facility] ([id number]) [address], [address] [place], [place] [address]YS Coag (PPP) [Time]14.4 sHigh9.8-13.2PKettering Health Hamilton Comment on above:Performed By: #### CBCA, 33996-6, PINR, 70562-3, 90271-2, 39643-9, 01757-4, THYR, 12051-6, CMP, 23135-3, 2157-6 #### [facility] ([id number]) [address] [place] [address] #### HA1C #### [facility] ([id number]) [address], [address] [place], [place] [address]Qykajkmuvcsjn [place] [Mass/Vol]on 94-43-0209ZABEXCBXIANEP6.06 ng/mL High<0.05ProSelect Medical Specialty Hospital - CantonComment on above:Result Comment: NOTE <0.50 ng/mL - Low risk of severe sepsis and/or septic shock. <2.00 ng/mL - Recommend retesting within 6-24 hours. >2.00 ng/mL - High risk of sepsis and/or septic shock.Performed By: #### CBCA, 15365-7, PINR, 98916-5, 75271-4, 40982-1, 05030-0, THYR, 57633-7, CMP, 16649-3, 2157-6 #### [facility] ([id number]) [address] [place] [address] #### HA1C #### [facility] ([id number]) [address] [place] [address], [address] [place], [place] [address]GMBJ PATHOGENS/XUHC-YtK-0ao 68-37-4176Znrfewgryxh pathogens DNA and RNA panel ANASTASIA+non-probe (Nph)SPECIMEN [...] 2 Not detected (qualifier value) NOTE The [employer] Respiratory Panel 2.1 (RP2.1) is a multiplexed [...] other pathogens. The agent(s) detected by the [employer] RP2.1 may not be the definite cause [...] evaluating a patient with possible respiratory tract infection.NormalProSelect Medical Specialty Hospital - CantonComment on above:Performed By: #### CBCA, 85106-3, PINR, 33082-2, 89370- 7, 31595-0, 87831-5, THYR, 06922-6, CMP, 51511-1, 2157-6 #### [facility] ([id number]) [address] [place] [address] #### HA1C #### [facility] ([id number]) [address] [place] [address], [address] [place], [place] [address]AQQFZMF PROFILEon 35-26-2445Fxuj T4 [Mass/Vol]1.04 ng/dLNormal 0.61-1.60ProSelect Medical Specialty Hospital - CantonComment on above:Performed By: #### CBCA, 28291-0, PINR, 04275-1, 30946-1, 70221-6, 78453-8, THYR, 80973-7, CMP, 84107-5, 2157-6 #### [facility] ([id number]) [address] [place] [address] #### HA1C #### [facility] ([id number]) [address] [facility] [facility] [address], [address] [place], [place] [address]MHK4.70 uIU/mLNormal0.49-4.67ProSelect Medical Specialty Hospital - CantonComment on above:Performed By: #### WILLIAM, 46285-4, PINR, 74156-0, 97796-9, 63501-6, 94017- 4, THYR, 62292-3, CMP, 38223-9, 2157-6 #### [facility] ([id number]) [address] [place] [address] #### HA1C #### [facility] ([id number]) [address], [address] [place], [place] [address]Pxrhlaru I.cardiac High sensitivity method [Mass/Vol]on 56-79-3370NHBYPEEW I, HIGH LWXDKEFZMWF935 ng/LHigh<21ProSelect Medical Specialty Hospital - Canton Comment on above:Result Comment: Elevations of hs-Troponin may be due to causes other than myocardial ischemia. Recommend serial hs-Troponin testing be performed. For the initial evaluation and management of chest pain patients, refer to the algorithms linked below. Emergency Patient: [email or web address] Inpatient: [email or web address] By: #### CBCA, 63371-7, PINR, 74783-8, 99028-8, 22072-6, 86772-2, THYR, 72002- 1, CMP, 47710-9, 2157-6 #### [facility] ([id number]) [address] [place] [address] #### HA1C #### [facility] ([id number]) [address] [facility], [address] [place], [place] [address] HOUR TROP I, HIGH TZXRGJZOGXP309 ng/LHigh<21ProSelect Medical Specialty Hospital - CantonComment on above:Result Comment: Elevations of hs-Troponin may be due to causes other than myocardial ischemia. Recommend serial hs-Troponin testing be performed. For the initial evaluation and management of chest pain patients, refer to the algorithms linked below. Emergency Patient: [email or web address] Inpatient: [email or web address] By: #### CBCA, 33465-0, PINR, 34935-3, 45563-4, 95133-0, 87659-2, THYR, 28725- 1, CMP, 47784-8, 2157-6 #### [facility] ([id number]) [address] [place] [address] #### HA1C #### [facility] ([id number]) [address] [facility] [facility], [address] [place] [address]XI CHEST 1 VWon 19-37-3124FM CHEST 1 VWXR CHEST 1 VW History: Congestion EXAM: Chest AP portable upright COMPARISON: None FINDINGS: Cardiac silhouette within normal limits. Mild interstitial prominence. No pneumothorax. No infiltrate or large pleural effusion. IMPRESSION: Mild interstitial edema Finalized by Mima Eaton MD on 01/21/2024 1:38 PMNormalProSelect Medical Specialty Hospital - CantonaPTT Coag (PPP) [Time]on 26-95-7083qLMW Coag (Bld) [Time]54 lGbtn83-79 [facility] Medical CenterComment on above:Performed By: #### CBCA, 21469-2, PINR, 54961-8, 89311-8, 90366-3, 93502-7, THYR, 05754-7, CMP, 10777-0, 2157-6 #### [facility] ([id number]) [address] [place] [address] #### HA1C #### [facility] ([id number]) [address] [place] [address], [address] [place], [place] [address]KQ Cervical spine WO contraston 64-72[place] [address] Magnetic Resonance Report Signed Patient: MANOLO ROCHE MR#: [id number] : 1935 Acct:[id number] Age/Sex: 88 / M ADM Date: 12/27/23 Loc: MRI Attending Dr: Non-Staff Physician Mikel Ordering Physician: Jones MortonStaff Mikel Date of Service: 12/27/23 Procedure(s): MR cervical spine wo con Accession Number(s): [id number] cc: Physician,Non-Staff Mikel; MARIE TEJEDA [place] [address] Patient Name: MANOLO ROCHE MRN: [id number] date: 1935 Sex: M Assigned Patient Location: MRI Current Patient Location: Accession/Order Number: [id number] Exam Date: 12/27/2023 09:55 Report Date: 12/28/2023 [...] Guzman M.D. Signed By: 12/28/2336 DD/ TD/TT: Fabric Designer:TBHRadiology, Radiologist, MD - 12/28/2023 [place] [address] Magnetic Resonance Report Signed Patient: MANOLO ROCHE MR#: [id number] : 1935 Acct:[id number] Age/Sex: 88 / M ADM Date: 12/27/23 Loc: MRI Attending Dr: Non-Staff Physician Morin Ordering Physician: Maci Morton M.D. Date of Service: 12/27/23 Procedure(s): MR cervical spine wo con Accession Number(s): [id number] cc: Physician,Non-Staff MBrandon; MARIE TEJEDA [place] [address] Patient Name: MANOLO ROCHE MRN: [id number] date: 1935 Sex: M Assigned Patient Location: MRI Current Patient Location: Accession/Order Number: [id number] Exam Date: 12/27/2023 09:55 Report Date: 12/28/2023 [...] M.D. Signed By: 12/28/23935 DD/ 3 TD/TT: Fabric Designer: NETO [facility] For RehabilitationRadiology Study observation (narrative)[facility] Cervical spine WO contrastOrdered By: Radiologist Radiology on 99-81-3709JTFNUniversity Health Lakewood Medical Center Work Phone: Glucose Glucometer (BldC) [Mass/Vol]Ordered By: Alberto Shearer on 49-79-7070Ilrcjor [Mass/Vol]83 mg/dLRegency Hospital Cleveland East Comment on above:Random Glucose Reference Range is dependent on time and content of last meal. Glucose of more than 200 mg/dL in a nonstressed, ambulatory subject supports the diagnosis of Diabetes Mellitus.No Panel InformationOrdered By: Alberto Shearer on 53-20-4490Owgukvh Glucose CommentGlu2: cleaned [facility] HospitalBedside Glucose #2 CommentCleaned [facility] HospitalGlucose Glucometer (BldC) [Mass/Vol]Ordered By: Yomi Meeks on 97-59-7379Gznehtq [Mass/Vol]71 mg/dLRegency Hospital Cleveland EastComment on above:Random Glucose Reference Range is dependent on time and content of last meal. Glucose of more than 200 mg/dL in a nonstressed, ambulatory subject supports the diagnosis of Diabetes Mellitus.Glucose Glucometer (BldC) [Mass/Vol]Ordered By: Vidya Robert on 15-02-5679Uaokjya [Mass/Vol]268 mg/dLRegency Hospital Cleveland EastComment on above:Random Glucose Reference Range is dependent on time and content of last meal. Glucose of more than 200 mg/dL in a nonstressed, ambulatory subject supports the diagnosis of Diabetes Mellitus.No Panel InformationOrdered By: Vidya Robert on 38-26-5986Cdggyzy Glucose CommentGlu2: cleaned [facility] HospitalErythrocyte distribution width Auto (RBC) [Ratio]Ordered By: [employer] on 15-93-2012Dukpikuknbw distribution width (RBC) [Ratio]16.7 %12.0-14.8 [facility] Cleveland EastHematocrit Auto (Bld) [Volume fraction]Ordered By: [employer] on 98-39-4197Mbcsvbautq (Bld) [Volume fraction]22.7 % 38.8-50.0[facility] EastHemoglobin [Mass/volume] in Blood Ordered By: [employer] on 11-35-0769Bvhktcrvhk (Bld) [Mass/Vol]7.8 g/dL 13.0-17.0[facility] EastLeukocytes [#/volume] corrected for nucleated erythrocytes in Blood by Automated counOrdered By: [employer] on 07-56-3156SBX corrected for nucl RBC Auto (Bld) [#/Vol]9.4 10*3/uL4.1-10.5 [facility] EastMCH Auto (RBC) [Entitic mass]Ordered By: [employer] on 42-28-1829QVA (RBC) [Entitic mass]28.7 pg27.5-35.2FKettering Health – Soin Medical CenterMCHC Auto (RBC) [Mass/Vol]Ordered By: [employer] on 09-05-2023 MCHC (RBC) [Mass/Vol]34.1 g/dL32.5-35.6FKettering Health – Soin Medical CenterMCV Auto (RBC) [Entitic vol]Ordered By: [employer] on 72-30-8576BLQ (RBC) [Entitic vol]84.1 fL83.5-101Reg[facility] EastPlatelet mean volume Auto (Bld) [Entitic vol]Ordered By: [employer] on 60-16-9132Qnosckpg mean volume (Bld) [Entitic vol]9.8 fL6.6-10.1FKettering Health – Soin Medical CenterPlatelets Auto (Bld) [#/Vol]Ordered By: [employer] on 89-98-1000Wfotqtqye (Bld) [#/Vol]236 10*3/xP790-465BaicvzezcRegency Hospital Cleveland EastRBC Auto (Bld) [#/Vol]Ordered By: [employer] on 25-29-4681PEG (Bld) [#/Vol]2.70 10*6/uL3.90-5.60[facility] EastBasophils Auto (Bld) [#/Vol]Ordered By: Jeevan Pinzon on 78-34-7453Wmjmsbljn (Bld) [#/Vol]0.0 10*3/uL0.0-0.2FKettering Health – Soin Medical CenterBasophils/100 WBC Auto (Bld)Ordered By: Jeevan Pinzon on 09-04-2023 Basophils/100 WBC (Bld)0.4 %.[facility] EastEosinophils Auto (Bld) [#/Vol]Ordered By: Jeevan Pinzon on 27-79-1074Hqpwtbzdyfi (Bld) [#/Vol]0.1 10*3/uL0.0-0.45[facility] EastEosinophils/100 WBC Auto (Bld) Ordered By: Jeevan Pinzon on 58-05-3501Ievdderzzii/100 WBC (Bld)0.8 %.[facility] EastLymphocytes Auto (Bld) [#/Vol]Ordered By: Jeevan Pinzon on 99-19-5648Vxpruztawad (Bld) [#/Vol]1.3 10*3/uL1.00-4.8[facility] EastLymphocytes/100 WBC Auto (Bld)Ordered By: Jeevan Pinzon on 41-13-6803Iomfxedyiju/100 WBC (Bld)11.7 %.[facility] Monocytes Auto (Bld) [#/Vol]Ordered By: Jeevan Pinzon on 87-55-1599Bqqniohes (Bld) [#/Vol]1.9 10*3/uL0.0-0.8[facility] EastMonocytes/100 WBC Auto (Bld)Ordered By: Jeevan Pinzon on 39-72-0829Nrmnyfkug/100 WBC (Bld)17.9 %.[facility] Hospital Cleveland EastComment on above:Absolute monocytosis is commonly reactive in nature. However, if unexplained, recommend follow-up CBC in 3 months to evaluate for persistence.Neutrophils Auto (Bld) [#/Vol]Ordered By: Jeevan Pinzon on 15-86-9196Kyzbfbdjgjp (Bld) [#/Vol]7.4 10*3/uL1.8-7.7FKettering Health – Soin Medical CenterNeutrophils/100 WBC Auto (Bld)Ordered By: Jeevan Pinzon on 96-58-6986Cmwdwptxjmk/100 WBC (Bld)69.2 %.[facility] Nucleated erythrocytes [Presence] in Blood by Automated countOrdered By: Jeevan Pinzon on 54-17-3611Magjcvwjq RBC Auto Ql (Bld)0.2 /100{WBC}0-0.5FKettering Health – Soin Medical CenterWBC Auto (Bld) [#/Vol]Ordered By: Jeevan Pinzon on 43-04-7135NYA (Bld) [#/Vol]10.7 10*3/uL4.1-10.5FKet[facility] No Panel InformationOrdered By: [employer] on 93-43-6812Fdymjea Glucose #2 CommentWill repeat testRegency Hospital Cleveland EastAcanthocytes [Presence] in Blood by Light microscopyOrdered By: [employer] on 06-25-4195Yirpckhhpdzc LM Ql (Bld)[facility] Health SystemAnisocytosis LM Ql (Bld) Ordered By: [employer] on 06-40-4654Vdarmyynsowo Ql (Bld)[facility]lenbeigh HospitalBand form neutrophils/100 WBC Manual cnt (Bld)Ordered By: [employer] on 81-45-7272Waww form neutrophils/100 WBC (Bld)4 %0-5FKettering Health – Soin Medical CenterBurr cells [Presence] in Blood by Light microscopyOrdered By: [employer] on 56-11-0113Xodc cells LM Ql (Bld)[facility] Health SystemCalcium [Mass/volume] in Serum or PlasmaOrdered By: [employer] on 45-36-2666Jcweype [Mass/Vol]7.7 mg/dL8.6-10.3FKettering [facility] – Soin Medical CenterCarbon dioxide, total [Moles/volume] in Serum or PlasmaOrdered By: [employer] on 35-53-2334VQ9 [Moles/Vol]27.3 mmol/L21.0-31.0[facility] EastChloride [Moles/volume] in Serum or PlasmaOrdered By: [employer] on 64-83-1556Vyqotjjo [Moles/Vol]106 mmol/J09-536AqvhypqpiRegency Hospital Cleveland EastCreatinine [Mass/volume] in Serum or PlasmaOrdered By: [employer] on 76-01-7166Fzeayealkn [Mass/Vol]0.81 mg/dL0.70-1.30[facility] EastGlucose [Mass/volume] in Serum or PlasmaOrdered By: [employer] on 66-54-4159Tkzaomn [Mass/Vol]79 mg/yJ57-120DyrmdnketRegency Hospital Cleveland East Comment on above:ADA recommended reference rangeRandom Glucose Reference Range is dependent on time and content of last meal. Glucose of more than 200 mg/dL in a nonstressed, ambulatory subject supports the diagnosisof Diabetes Mellitus. Hypochromia LM Ql (Bld)Ordered By: [employer] on 20-30-3819Yaoiypssvjr Ql (Bld)[facility]beigh HospitalLymphocytes/100 WBC Manual cnt (Bld)Ordered By: [employer] on 93-09-5382Ihpwbrlvnfz/100 WBC (Bld)9 %18-42 [facility] EastMicrocytes LM Ql (Bld)Ordered By: [employer] on 61-64-6998Ibyltnkmvu Ql (Bld)[facility]igh HospitalMonocytes/100 WBC Manual cnt (Bld)Ordered By: [employer] on 09-01-2023 Monocytes/100 WBC (Bld)7 %2-11[facility] EastNo Panel InformationOrdered By: [employer] on 51-86-0304Ocjyfsmfa GFR (CKD-EPI)> 60.0 mL/MinRegency Hospital Cleveland EastPharmacy Creatinine Clearance (Chem59.91 [facility] EastOvalocyte detectionOrdered By: [employer] on 06-11-1297Qzbmhrphwj LM Ql (Bld)[facility] Platelet adequacy [Presence] in Blood by Light microscopyOrdered By: [employer] on 63-86-6016Luohuuush LM Ql (Bld)DecreasedNormalRegency Hospital Cleveland EastPlatelet morphology finding [Identifier] in BloodOrdered By: [employer] on 21-78-1887Zgknblvf morphology finding Nom (Bld)N/[facility] HospitalPlatelets Large [Presence] in Blood by Light microscopy Ordered By: Audi aGming on 70-73-0597Oaxrkegiq Large LM Ql (Bld)[facility] Medical CenterPoikilocytosis [Presence] in Blood by Light microscopyOrdered By: [employer] on 10-66-7988Mcxkjldcokmdqu LM Ql (Bld) [facility]igh HospitalPolychromasia [Presence] in Blood by Light microscopyOrdered By: [employer] on 36-34-7397Mdgioyhqcngwr LM Ql (Bld)[facility] SystemPotassium [Moles/volume] in Serum or PlasmaOrdered By: [employer] on 78-12-9701Ktiouurqo [Moles/Vol]3.9 mmol/L 3.5-5.1FKettering Health – Soin Medical CenterRBC morphologyOrdered By: [employer] on 60-80-5822QBN morphology finding Nom (Bld)N/[facility] Hospitalchistocytes [Presence] in Blood by Light microscopyOrdered By: [employer] on 93-06-9065Vygdjqoahdsm LM Ql (Bld)[facility]erm[facility] Hospitalegmented neutrophils/100 WBC Manual cnt (Bld)Ordered By: [employer] on 89-19-0669Hfjwpzrob neutrophils/100 WBC (Bld)81 %50-70Memorial Hospitalerum or plasma anion gap determinationOrdered By: [employer] on 71-42-4934Kbqxx gap [Moles/Vol]10.6 mmol/L6.0-15.0Memorial Hospitalodium [Moles/volume] in Serum or PlasmaOrdered By: [employer] on 05-75-0962Cshugc [Moles/Vol]140 mmol/O989-593ZjwevsxzpRegency Hospital Cleveland East Target cellsOrdered By: [employer] on 06-83-0569Gkqtoi cells LM Ql (Bld) [facility] Health SystemTroponin I.cardiac [Mass/volume] in Serum or Plasma by Detection limit <= 0.01 ng/Ordered By: [employer] on 33-00-2331Txdlsfeb I.cardiac DL <= 0.01 ng/mL [Mass/Vol]779.8 pg/mL0.0-20.0 [facility] EastComment on above:Critical Result : Called to and read back by: EDNA MORALES at: 09/01/2023 06:23:23 by:RGUrea nitrogen [Mass/volume] in Serum or PlasmaOrdered By: [employer] on 52-70-9473Wohf nitrogen [Mass/Vol]37 mg/dL7-25[facility] EastActivated partial thromboplastin time (aPTT) in platelet poor plasma by coagulation a Ordered By: Federico Davis on 28-55-1051iJVY Coag (PPP) [Time]30.2 s25.1-36.5 [facility] EastComment on above:A hematocrit value greater than 55% may lead to inaccurate results in coagulation testing. Patientshaving hematocrit values >55% require a special collection tube for coagulation studies. Please contact the laboratory at [phone] for redraw instructions. Anisocytosis LM Ql (Bld)Ordered By: Federico Davis on 99-92-5522Oqeexlnhxbfa Ql (Bld) [facility] Health SystemBasophils Auto (Bld) [#/Vol]Ordered By: Federico Davis on 77-71-5868Igaowttve (Bld) [#/Vol]0.0 10*3/uL0.0-0.2FKettering Health – Soin Medical CenterBasophils/100 WBC Auto (Bld)Ordered By: Federico Davis on 49-71-7960Dxqnqwtgi/100 WBC (Bld)0.5 %.[facility] EastCarbon dioxide, total [Moles/volume] in Serum or PlasmaOrdered By: Federico Davis on 24-98-4243XZ5 [Moles/Vol]26.8 mmol/L21.0-31.0[facility] Chloride [Moles/volume] in Serum or PlasmaOrdered By: Federico Davis on 07-16-2023 Chloride [Moles/Vol]103 mmol/B21-197SpibypstuRegency Hospital Cleveland EastCreatinine [Mass/volume] in Serum or PlasmaOrdered By: Federico Davis on 87-10-0031Utxylhnats [Mass/Vol]0.71 mg/dL0.70-1.30[facility] EastEosinophils Auto (Bld) [#/Vol]Ordered By: Federico Davis on 70-27-2952Gzkpewljnxn (Bld) [#/Vol]0.0 10*3/uL0.0-0.45[facility] EastEosinophils/100 WBC Auto (Bld) Ordered By: Federico Davis on 52-48-3509Hvensnajrzq/100 WBC (Bld)0.3 %.[facility] EastErythrocyte distribution width Auto (RBC) [Ratio]Ordered By: Federico Davis on 74-84-4568Ptgzzpryqzf distribution width (RBC) [Ratio]16.5 % 12.0-14.8[facility] EastGlucose Glucometer (BldC) [Mass/Vol] Ordered By: Federico Davis on 42-99-2466Xxgbfzu [Mass/Vol]398 mg/dLRegency Hospital Cleveland EastComment on above:Random Glucose Reference Range is dependent on time and content of last meal. Glucose of more than 200 mg/dL in a nonstressed, ambulatory subject supports the diagnosis of Diabetes Mellitus.Hematocrit Auto (Bld) [Volume fraction]Ordered By: Federico Davis on 02-11-7724Vgozuztmon (Bld) [Volume fraction]33.5 %38.8-50.0[facility] EastHemoglobin [Mass/volume] in BloodOrdered By: Federico Davis on 17-17-9230Fgifydogtw (Bld) [Mass/Vol]11.0 g/dL13.0-17.0[facility] EastHypochromia LM Ql (Bld)Ordered By: Federico Dvais on 00-79-9280Cqvhovzcgjl Ql (Bld)MarkedRegency Hospital Cleveland EastINR in Platelet poor plasma by Coagulation assayOrdered By: Federico Davis on 79-88-1246IJE Coag (PPP) [Relative time]1.1 {INR}[facility] EastComment on above:INR Therapeutic Range A) Pre- and [...] by Automated counOrdered By: Federico Davis on 00-67-9839QUD corrected for nucl RBC Auto (Bld) [#/Vol]8.4 10*3/uL4.1-10.5 [facility] EastLymphocytes Auto (Bld) [#/Vol]Ordered By: Federico Davis on 49-44-4137Wmsjdnbxkxi (Bld) [#/Vol]0.7 10*3/uL1.00-4.8[facility] EastLymphocytes/100 WBC Auto (Bld)Ordered By: Federico Davis on 13-63-9392Famytzwnlwu/100 WBC (Bld)8.4 %.[facility] Auto (RBC) [Entitic mass]Ordered By: Federico Davis on 78-41-8890XGR (RBC) [Entitic mass]26.4 pg27.5-35.2FKettering Health – Soin Medical CenterMCHC Auto (RBC) [Mass/Vol] Ordered By: Federico Davis on 86-06-3621MKPX (RBC) [Mass/Vol]32.8 g/dL32.5-35.6 [facility] EastMCV Auto (RBC) [Entitic vol]Ordered By: Federico Davis on 12-43-8134KKH (RBC) [Entitic vol]80.4 fL83.5-101[facility] EastMacrocytes LM Ql (Bld)Ordered By: Federico Davis on 07-16-2023 Macrocytes Ql (Bld)SlightRegency Hospital Cleveland EastMonocytes Auto (Bld) [#/Vol]Ordered By: Federico Davis on 15-61-0854Wxbpkrzqx (Bld) [#/Vol]1.3 10*3/uL 0.0-0.8[facility] EastMonocytes/100 WBC Auto (Bld)Ordered By: Federico Davis on 18-42-9868Tseqtgixu/100 WBC (Bld)15.1 %.[facility] EastNeutrophils Auto (Bld) [#/Vol]Ordered By: Federico Davis on 07-16-2023 Neutrophils (Bld) [#/Vol]6.3 10*3/uL1.8-7.7FK[facility] Neutrophils/100 WBC Auto (Bld)Ordered By: Federico Davis on 76-68-7663Ircyuqkwqcl/100 WBC (Bld)75.7 %.[facility] EastNo Panel InformationOrdered By: Federico Davis on 95-45-7938Mlgxswt Glucose CommentGlu2: cleaned meterRegency Hospital Cleveland EastEstimated GFR (CKD-EPI)> 60.0 mL/MinRegency Hospital Cleveland EastPharmacy Creatinine Clearance (ChemN/AFKettering Health – Soin Medical CenterNucleated erythrocytes [Presence] in Blood by Automated countOrdered By: Federico Davis on 07-86-3541Obbwxyclc RBC Auto Ql (Bld)0.1 /100{WBC}0-0.5FKettering Health – Soin Medical CenterPlatelet adequacy [Presence] in Blood by Light microscopy Ordered By: Federico Davis on 22-84-0736Rldxydwuu LM Ql (Bld)NormalNormalRegency Hospital Cleveland EastPlatelet mean volume Auto (Bld) [Entitic vol]Ordered By: Federico Davis on 94-37-2696Riqvndpr mean volume (Bld) [Entitic vol]10.1 fL6.6-10.1 [facility] EastPlatelet morphology finding [Identifier] in BloodOrdered By: Federico Davis on 45-93-1428Uoyvgdht morphology finding Nom (Bld)N/A [facility] EastPlatelets Auto (Bld) [#/Vol]Ordered By: Federico Davis on 84-74-3904Xybxwbhyv (Bld) [#/Vol]243 10*3/vW602-596HxthqmxkbRegency Hospital Cleveland EastPlatelets Large [Presence] in Blood by Light microscopyOrdered By: Federico Davis on 51-77-8648Mykvhtijm Large LM Ql (Bld)SlightRegency Hospital Cleveland EastPoikilocytosis [Presence] in Blood by Light microscopyOrdered By: Federico Davis on 67-19-1387Gwfbomptggbcpu LM Ql (Bld)[facility]igh HospitalPolychromasia [Presence] in Blood by Light microscopyOrdered By: Federico Davis on 06-23-6598Llxieyxksmqvq LM Ql (Bld)[facility] HospitalPotassium [Moles/volume] in Serum or PlasmaOrdered By: Federico Davis on 88-98-1600Poouxaxgv [Moles/Vol]4.2 mmol/L3.5-5.1FKettering Health – Soin Medical CenterProthrombin time (PT)Ordered By: Federico Davis on 54-03-9063WP Coag (PPP) [Time]12.3 s9.0-12.9[facility] EastComment on above:A hematocrit value greater than 55% may lead to inaccurate results in coagulation testing. Patientshaving hematocrit values >55% require a special collection tube for coagulation studies. Please contact the laboratory at [phone] for redraw instructions.RBC Auto (Bld) [#/Vol]Ordered By: Federico Davis on 21-60-7863SQG (Bld) [#/Vol]4.17 10*6/uL3.90-5.60[facility] Cleveland EastRBC morphologyOrdered By: Federico Davis on 70-66-7902CJA morphology finding Nom (Bld)N/A Memorial Hospitalchistocytes [Presence] in Blood by Light microscopyOrdered By: Federico Davis on 56-48-5327Kwzngawhorcd LM Ql (Bld)Slight Memorial Hospitalerum or plasma anion gap determinationOrdered By: Federico Davis on 16-73-7583Yoera gap [Moles/Vol]12.4 mmol/L6.0-15.0Memorial Hospitalodium [Moles/volume] in Serum or PlasmaOrdered By: Federico Davis on 13-63-0288Bonfdl [Moles/Vol]138 mmol/Q425-420KcunearjyRegency Hospital Cleveland EastTarget cellsOrdered By: Federico Davis on 51-93-7753Minplu cells LM Ql (Bld)ModerateRegency Hospital Cleveland EastUrea nitrogen [Mass/volume] in Serum or PlasmaOrdered By: Federico Davis on 59-14-1246Dohk nitrogen [Mass/Vol]16 mg/dL7-25[facility] EastWBC Auto (Bld) [#/Vol]Ordered By: Federico Davis on 96-80-9608NZB (Bld) [#/Vol]8.4 10*3/uL4.1-10.5FKettering Health – Soin Medical CenterProgress Noteson [id number] Authentication Interface Message TextEMERGENCY TRIAGE, TREAT AND TRANSPORT (ET3) DOCUMENTATION OF TELEHEALTH VISIT Date / Time: 06/02/2023929 Name: Giovani Roche : 1935 SSN: (Not on file) EMS Agency: [facility] [x] Verbal consent obtained [...] Reported: Same ET3 Encounter Completed by: David FrederickMcKit[facility] SystemEC 12 [place] [id number] sinus rhythm, anterolateral ST T wave abnormality, abnormal ECGCPACSWood County Hospital Work Phone: Glucose Glucometer (BldC) [Mass/Vol]Ordered By: Fredi Medrano on 63-42-7032Bxmcvpr [Mass/Vol]98 mg/dLRegency Hospital Cleveland EastComment on above:Random Glucose Reference Range is dependent on time and content of last meal. Glucose of more than 200 mg/dL in a nonstressed, ambulatory subject supports the diagnosis of Diabetes Mellitus.No Panel InformationOrdered By: Fredi Medrano on 43-51-8775Wlmtcuj Glucose Comment Glu2: cleaned meterRegency Hospital Cleveland EastAlanine aminotransferase [Enzymatic activity/volume] in Serum or PlasmaOrdered By: Fredi Medrano on 62-09-9919GXB [Catalytic activity/Vol]14 U/L7-52[facility] EastAlbumin [Mass/volume] in Serum or Plasma by Bromocresol green (BCG) dye binding methoOrdered By: Fredi Medrano on 87-58-5389Sjqmlvq BCG dye [Mass/Vol]2.9 g/dL3.5-5.7FKettering Health – Soin Medical CenterAlkaline phosphatase [Enzymatic activity/volume] in Serum or PlasmaOrdered By: Fredi Medrano on 74-26-1773ANL [Catalytic activity/Vol]87 U/L06-877MnzuazimaRegency Hospital Cleveland EastAspartate aminotransferase [Enzymatic activity/volume] in Serum or Plasma Ordered By: Fredi Medrano on 89-15-3052ULJ [Catalytic activity/Vol]20 U/L 13-39[facility] EastBasophils Auto (Bld) [#/Vol]Ordered By: Fredi Medrano on 29-35-4912Uhqggfcgm (Bld) [#/Vol]0.0 10*3/uL0.0-0.2 [facility] EastBasophils/100 WBC Auto (Bld)Ordered By: Fredi Medrano on 50-68-7848Qxalfsyyy/100 WBC (Bld)0.7 %.[facility] EastBilirubin.total [Mass/volume] in Serum or PlasmaOrdered By: Frdei Medrano on 71-21-6688Yamcwthtz [Mass/Vol]0.5 mg/dL0.3-1.0 [facility] EastCalcium [Mass/volume] in Serum or PlasmaOrdered By: Fredi Medrano on 50-78-2136Yhxgkyr [Mass/Vol]8.0 mg/dL8.6-10.3 [facility] EastCarbon dioxide, total [Moles/volume] in Serum or PlasmaOrdered By: Fredi Medrano on 43-31-9194LK5 [Moles/Vol]28.0 mmol/L21.0-31.0[facility] EastChloride [Moles/volume] in Serum or PlasmaOrdered By: Fredi Medrano on 30-61-4341Navxmvji [Moles/Vol]102 mmol/P70-526YwcfrulxtRegency Hospital Cleveland EastCreatinine [Mass/volume] in Serum or PlasmaOrdered By: Fredi Medrano on 15-86-5933Tfzkahydtu [Mass/Vol]0.61 mg/dL0.70-1.30[facility] EastEosinophils Auto (Bld) [#/Vol] Ordered By: Fredi Medrano on 93-87-9733Vnybhhaqpfz (Bld) [#/Vol]0.1 10*3/uL0.0-0.45[facility] EastEosinophils/100 WBC Auto (Bld) Ordered By: Fredi Medrano on 32-68-4397Sgnvoabxqrz/100 WBC (Bld)1.5 %. [facility] EastErythrocyte distribution width Auto (RBC) [Ratio]Ordered By: Fredi Medrano on 42-38-5867Zwifopnbnoh distribution width (RBC) [Ratio]16.8 %12.0-14.8[facility] EastGlobulin Calc (S) [Mass/Vol]Ordered By: Fredi Medrano on 84-42-3181Devyzfch (S) [Mass/Vol]2.5 g/dLRegency Hospital Cleveland EastGlucose [Mass/volume] in Serum or PlasmaOrdered By: Fredi Medrano on 58-62-8903Urbsexd [Mass/Vol] 120 mg/tU44-973GdgcqqhfqRegency Hospital Cleveland EastComment on above:ADA recommended reference rangeRandom Glucose Reference Range is dependent on time and content of last meal. Glucose of more than 200 mg/dL in a nonstressed, ambulatory subject supports the diagnosisof Diabetes Mellitus.Hematocrit Auto (Bld) [Volume fraction]Ordered By: Fredi Medrano on 27-97-1919Kbytizqfut (Bld) [Volume fraction]29.3 %38.8-50.0[facility] EastHemoglobin [Mass/volume] in BloodOrdered By: Fredi Medrano on 06-23-6221Oroqfzpfwt (Bld) [Mass/Vol]9.7 g/dL13.0-17.0[facility] EastLeukocytes [#/volume] corrected for nucleated erythrocytes in Blood by Automated coun Ordered By: Fredi Medrano on 42-36-8239XHH corrected for nucl RBC Auto (Bld) [#/Vol]7.2 10*3/uL4.1-10.5[facility] CenterLymphocytes Auto (Bld) [#/Vol]Ordered By: Fredi Medrano on 30-58-9385Hskgjwufftf (Bld) [#/Vol]1.6 10*3/uL1.00-4.8[facility] EastLymphocytes/100 WBC Auto (Bld)Ordered By: Fredi Medrano on 60-52-4515Ltlsknkavzi/100 WBC (Bld)23.0 %.[facility] MD, Cancer CenterH Auto (RBC) [Entitic mass] Ordered By: Fredi Medrano on 12-68-9141HOH (RBC) [Entitic mass]27.9 pg 27.5-35.2FKettering Health – Soin Medical CenterMCHC Auto (RBC) [Mass/Vol]Ordered By: Fredi Medrano on 67-22-5973RGSF (RBC) [Mass/Vol]33.0 g/dL32.5-35.6 [facility] EastMCV Auto (RBC) [Entitic vol]Ordered By: Fredi Medrano on 24-96-6817VWL (RBC) [Entitic vol]84.6 fL83.5-101 [facility] EastMonocytes Auto (Bld) [#/Vol]Ordered By: Fredi Medrano on 21-61-5201Xgtvaykbw (Bld) [#/Vol]0.7 10*3/uL0.0-0.8 [facility] EastMonocytes/100 WBC Auto (Bld)Ordered By: Fredi Medrano on 62-46-4126Zfdhxrbdl/100 WBC (Bld)9.9 %.[facility] EastNeutrophils Auto (Bld) [#/Vol]Ordered By: Fredi Medrano on 83-42-4588Wjtukfhgvej (Bld) [#/Vol]4.6 10*3/uL1.8-7.7FKettering Health [facility] Soin Medical CenterNeutrophils/100 WBC Auto (Bld)Ordered By: Fredi Medrano on 77-12-3244Ztmfbruzvha/100 WBC (Bld)64.9 %.[facility] EastNo Panel InformationOrdered By: Fredi Medrano on 05-04-2023 Estimated GFR (CKD-EPI)> 60.0 mL/MinRegency Hospital Cleveland EastPharmacy Creatinine Clearance (Chem62.25[facility] EastNucleated erythrocytes [Presence] in Blood by Automated countOrdered By: Fredi Medrano on 62-20-9354Kkcfhsxwz RBC Auto Ql (Bld)0.2 /100{WBC}0-0.5FKettering Health – Soin Medical CenterPlatelet mean volume Auto (Bld) [Entitic vol]Ordered By: Fredi Medrano on 22-60-0709Rqzpnxze mean volume (Bld) [Entitic vol]8.9 fL 6.6-10.1FKettering [facility] – Soin Medical CenterPlatelets Auto (Bld) [#/Vol]Ordered By: Fredi Medrano on 05-15-1877Vepxrcnay (Bld) [#/Vol]218 10*3/pF948-351 [facility] EastPotassium [Moles/volume] in Serum or Plasma Ordered By: Fredi eMdrano on 22-96-9269Vyiolwsfc [Moles/Vol]4.6 mmol/L 3.5-5.1FK[facility] Soin Medical CenterPrealbumin [Mass/volume] in Serum or PlasmaOrdered By: Fredi Medrano on 45-92-5056Phjkjtqicw [Mass/Vol]10.2 mg/dL17.0-34.0[facility] EastProtein [Mass/volume] in Serum or PlasmaOrdered By: Fredi Medrano on 51-21-5540Cqrurjy [Mass/Vol]5.4 g/dL 6.4-8.9[facility] EastRBC Auto (Bld) [#/Vol]Ordered By: Fredi Medrano on 92-33-5318ANR (Bld) [#/Vol]3.46 10*6/uL3.90-5.60 [facility] Hospitalerum or plasma albumin/globulin mass ratio Ordered By: Fredi Medrano on 02-94-5966Wkfdwif/Globulin [Mass ratio]1.2 {ratio}[facility] Hospitalerum or plasma anion gap determination Ordered By: Fredi Medrano on 92-63-4283Hrjzn gap [Moles/Vol]8.6 mmol/L 6.0-15.0Memorial Hospitalodium [Moles/volume] in Serum or PlasmaOrdered By: Fredi Medrano on 33-28-8482Axnhpc [Moles/Vol]134 mmol/L 136-145[facility] EastUrea nitrogen [Mass/volume] in Serum or PlasmaOrdered By: Fredi Medrano on 48-67-6620Gkrp nitrogen [Mass/Vol]22 mg/dL7-25[facility] EastWBC Auto (Bld) [#/Vol]Ordered By: Fredi Medrano on 57-68-0419ISI (Bld) [#/Vol]7.2 10*3/uL4.1-10.5FKettering Health – Soin Medical CenterCholesterol [Mass/volume] in Serum or PlasmaOrdered By: Anat Perez on 05-54-7924Cyfiqkkzsye [Mass/Vol]98 mg/uB427-290WfuuxqahnRegency Hospital Cleveland EastComment on above:Chol less than 200 mg/dl low riskChol 201-239 mg/dl borderline riskChol 240 mg/dl and greater high riskCholesterol in LDL Calc [Mass/Vol]Ordered By: Anat Perez on 91-24-0479Vobarqtvmdm in LDL [Mass/Vol]46 mg/dL0-100[facility] EastComment on above:LDL ATP III CLASSIFICATIONLDL less than 100 mg/dL OptimalLDL 100-129 mg/dL Near or above olqqwqgCSY292-068 mg/dL Borderline highLDL 160-189 mg/dL HighLDL greater than 189 mg/dL Very highCholesterol in VLDL Calc [Mass/Vol]Ordered By: Anat Perez on 77-98-5829Mamzuzlxwyc in VLDL [Mass/Vol]12 mg/dLRegency Hospital Cleveland EastGlucose Glucometer (BldC) [Mass/Vol]Ordered By: Humberto Diaz on 37-57-7324Ejlhxlw [Mass/Vol]388 mg/dLRegency Hospital Cleveland EastComment on above:Random Glucose Reference Range is dependent on time and content of last meal. Glucose of more than 200 mg/dL in a nonstressed, ambulatory subject supports the diagnosis of Diabetes Mellitus.Serum or plasma high density lipoprotein (HDL) cholesterol measurementOrdered By: Anat Perez on 05-03-2023 Cholesterol in HDL [Mass/Vol]39 mg/bW38-94TexyudbwxReg[facility] Hospital [facility] East Comment on above:HDL CHOL ATP-III CLASSIFICATION Cardiovascular RiskHDL > or equal to 60 mg/dL LOWHDL < 40 mg/dL HIGHSerum or plasma total cholesterol/high density lipoprotein (HDL) cholesterol mass ratOrdered By: Anat Perez on 85-84-7936Rslsgcomcla.total/Cholesterol in HDL [Mass ratio]2.5 {ratio}<5.0 [facility] EastTriglyceride [Mass/volume] in Serum or Plasma Ordered By: Anat Perez on 39-26-7866Kqjtckurgbyj [Mass/Vol]64 mg/dL0-149 [facility] EastComment on above:TRIG ATP III CLASSIFICATIONTRIG less than 150 mg/dL NormalTRIG 150-199 mg/dL Borderline highTRIG 200-500 mg/dL High TRIG greater than 500 mg/dL Very highStandard traceable to the Center for Disease Conrtrol and Prevention (CDC) test method. Basophils Auto (Bld) [#/Vol]Ordered By: Sushant Cordon on 05-02-2023 Basophils (Bld) [#/Vol]0.0 10*3/uL0.0-0.2FK[facility] Basophils/100 WBC Auto (Bld)Ordered By: Sushant Cordon on 05-02-2023 Basophils/100 WBC (Bld)0.1 %.[facility] EastCalcium [Mass/volume] in Serum or PlasmaOrdered By: Sushant Cordon on 05-02-2023 Calcium [Mass/Vol]8.0 mg/dL8.6-10.3FK[facility] Medical CenterCarbon dioxide, total [Moles/volume] in Serum or PlasmaOrdered By: Sushant Cordon on 83-88-3512NR7 [Moles/Vol]30.1 mmol/L21.0-31.0[facility] EastChloride [Moles/volume] in Serum or PlasmaOrdered By: Sushant Cordon on 33-33-0683Ntqvablh [Moles/Vol]97 mmol/E90-725CaxpdgiwqRegency Hospital Cleveland EastCreatinine [Mass/volume] in Serum or PlasmaOrdered By: Sushant Cordon on 13-34-5238Jdygpfnbmy [Mass/Vol]0.86 mg/dL0.70-1.30[facility] EastEosinophils Auto (Bld) [#/Vol]Ordered By: Sushant Cordon on 33-74-5240Barmcchpzsa (Bld) [#/Vol]0.1 10*3/uL0.0-0.45[facility] EastEosinophils/100 WBC Auto (Bld)Ordered By: Sushant Cordon on 75-16-7332Zjniwodzlum/100 WBC (Bld)0.8 %.[facility] EastErythrocyte distribution width Auto (RBC) [Ratio]Ordered By: Sushant Cordon on 74-72-5037Vkkhmubwpvd distribution width (RBC) [Ratio]17.0 % 12.0-14.8[facility] EastGlucose [Mass/volume] in Serum or PlasmaOrdered By: Sushant Cordon on 22-08-2320Quyohab [Mass/Vol]87 mg/dL 70-100[facility] EastComment on above:ADA recommended reference rangeRandom Glucose Reference Range is dependent on time and content of last meal. Glucose of more than 200 mg/dL in a nonstressed, ambulatory subject supports the diagnosisof Diabetes Mellitus.Hematocrit Auto (Bld) [Volume fraction]Ordered By: Sushant Cordon on 50-48-9368Ojfeunowvh (Bld) [Volume fraction]27.8 %38.8-50.0[facility] EastHemoglobin [Mass/volume] in BloodOrdered By: Sushant Cordon on 85-46-5008Oallvhkcqy (Bld) [Mass/Vol]9.3 g/dL13.0-17.0[facility] EastLeukocytes [#/volume] corrected for nucleated erythrocytes in Blood by Automated coun Ordered By: Sushant Cordon on 07-59-1927DZB corrected for nucl RBC Auto (Bld) [#/Vol]8.6 10*3/uL4.1-10.5FKet[facility] Soin Medical CenterLymphocytes Auto (Bld) [#/Vol]Ordered By: Sushant Cordon on 62-14-7242Uqhxfwsxcuk (Bld) [#/Vol]1.2 10*3/uL1.00-4.8[facility] EastLymphocytes/100 WBC Auto (Bld)Ordered By: Sushant Cordon on 71-73-1119Jokdjdrhfzd/100 WBC (Bld)13.7 %.[facility] MD, Cancer CenterH Auto (RBC) [Entitic mass] Ordered By: Sushant Cordon on 61-98-8187KJJ (RBC) [Entitic mass]28.3 pg 27.5-35.2FK[facility] So[facility] Medical CenterMCHC Auto (RBC) [Mass/Vol]Ordered By: Sushant Cordon on 74-66-6874AGNG (RBC) [Mass/Vol]33.6 g/dL32.5-35.6 [facility] EastMCV Auto (RBC) [Entitic vol]Ordered By: Sushant Cordon on 45-60-1384SDY (RBC) [Entitic vol]84.2 fL83.5-101 [facility] EastMonocytes Auto (Bld) [#/Vol]Ordered By: Sushant Cordon on 92-91-8871Cqmrccyhg (Bld) [#/Vol]1.2 10*3/uL0.0-0.8 [facility] EastMonocytes/100 WBC Auto (Bld)Ordered By: Sushant Cordon on 91-34-0800Oyfuwxsgc/100 WBC (Bld)13.5 %.[facility] EastNeutrophils Auto (Bld) [#/Vol]Ordered By: Sushant Corodn on 61-59-0349Sfkjkwlxesu (Bld) [#/Vol]6.2 10*3/uL1.8-7.7FK[facility] So[facility] Medical CenterNeutrophils/100 WBC Auto (Bld)Ordered By: Sushant Cordon on 51-85-3059Bcbcbbuhnlo/100 WBC (Bld)71.9 %.[facility] EastNo Panel InformationOrdered By: Sushant Cordon on 05-02-2023 Bedside Glucose CommentSee commentRegency Hospital Cleveland EastComment on above:Glu2: WILL NOTIFY DR/RNEstimated GFR (CKD-EPI)> 60.0 mL/MinRegency Hospital Cleveland EastPharmacy Creatinine Clearance (Chem59.22[facility] EastNucleated erythrocytes [Presence] in Blood by Automated countOrdered By: Sushant Cordon on 23-37-9694Kgjbfujow RBC Auto Ql (Bld) 0.0 /100{WBC}0-0.5FK[facility] So[facility] Medical CenterPlatelet mean volume Auto (Bld) [Entitic vol]Ordered By: Sushant Cordon on 14-56-5325Bidbretu mean volume (Bld) [Entitic vol]9.3 fL6.6-10.1[facility] Platelets Auto (Bld) [#/Vol]Ordered By: Sushant Cordon on 05-02-2023 Platelets (Bld) [#/Vol]168 10*3/fR058-928NrbobfnuwRegency Hospital Cleveland East Potassium [Moles/volume] in Serum or PlasmaOrdered By: Sushant Cordon on 75-84-0706Tqyiuaytn [Moles/Vol]4.2 mmol/L3.5-5.1FK[facility] So[facility] Medical CenterRBC Auto (Bld) [#/Vol]Ordered By: Sushant Cordon on 98-30-4204LOS (Bld) [#/Vol]3.29 10*6/uL3.90-5.60Memorial Hospitalerum or plasma anion gap determinationOrdered By: Sushant Cordon on 05-02-2023 Anion gap [Moles/Vol]8.1 mmol/L6.0-15.0Memorial Hospitalodium [Moles/volume] in Serum or PlasmaOrdered By: Sushant Cordon on 05-02-2023 Sodium [Moles/Vol]131 mmol/R039-388RydnjkfuuRegency Hospital Cleveland EastUrea nitrogen [Mass/volume] in Serum or PlasmaOrdered By: Sushant Cordon on 91-71-3618Nczw nitrogen [Mass/Vol]21 mg/dL7-25[facility] WBC Auto (Bld) [#/Vol]Ordered By: Sushant Cordon on 85-11-1164AYY (Bld) [#/Vol]8.6 10*3/uL4.1-10.5FK[facility] Medical CenterActivated partial thromboplastin time (aPTT) in platelet poor plasma by coagulation aOrdered By: Anat Perez on 83-54-7774oLMP Coag (PPP) [Time]30.6 s25.1-36.5FKettering Health – Soin Medical CenterComment on above:A hematocrit value greater than 55% may lead to inaccurate results in coagulation testing. Patientshaving hematocrit values >55% require a special collection tube for coagulation studies. Please c ontact the laboratory at [phone] for redraw instructions.INR in Platelet poor plasma by Coagulation assayOrdered By: Anat Perez on 25-88-8372GSZ Coag (PPP) [Relative time]1.3 {INR}[facility] EastComment on above: INR Therapeutic Range A) Pre- [...] on 04-30-2023 Natriuretic peptide B (Bld) [Mass/Vol]523.0 pg/mL5-100[facility] EastProthrombin time (PT)Ordered By: Anat Perez on 10-72-1333RP Coag (PPP) [Time]15.6 s9.0-12.9[facility] EastComment on above:A hematocrit value greater than 55% may lead to inaccurate results in coagulation testing. Patientshaving hematocrit values >55% require a special collection tube for coagulation studies. Please contact the laboratory at [phone] for redraw instructions.Troponin I.cardiac [Mass/volume] in Serum or Plasma by Detection limit <= 0.01 ng/Ordered By: Anat Perez on 24-19-2124Sqhayrja I.cardiac DL <= 0.01 ng/mL [Mass/Vol]53.7 pg/mL0.0-20.0[facility] EastComment on above:Critical Result : Called to and read back by: STEVEN BYRD at: 04/30/2023 19:24:20 by:[id number] [Mass/volume] in Serum or PlasmaOrdered By: Sushant Cordon on 21-58-5075Binkxrab [Mass/Vol]41.5 ng/mL23.9-336.2FK[facility] Medical CenterFolate [Mass/volume] in Serum or PlasmaOrdered By: Sushant Cordon on 50-74-5454Fhlalj [Mass/Vol]28.0 ng/mL >5.9[facility] EastComment on above:Folate reference range: >5.9 ng/mlThe WHO technical consultation on folate and vitamin c63faoarmgxowxl has determined that folate concentrations lessthan 4 ng/ml are considered deficient.Iron [Mass/volume] in Serum or PlasmaOrdered By: Sushant Cordon on 44-90-4338Sshk [Mass/Vol]45 ug/lT99-455YyrpkvholRegency Hospital Cleveland EastIron binding capacity [Mass/volume] in Serum or PlasmaOrdered By: Sushant Cordon on 68-84-6199Ltxg binding capacity [Mass/Vol]330 ug/gA325-108VktrgircuRegency Hospital Cleveland EastIron saturation [Mass Fraction] in Serum or Plasma Ordered By: Sushant Cordon on 10-87-8947Hpew saturation [Mass fraction] 13.6 %20-50[facility] EastMagnesium [Mass/volume] in Serum or PlasmaOrdered By: Sushant Cordon on 59-05-5438Sheruhpjj [Mass/Vol]1.9 mg/dL1.9-2.7FK[facility] CenterNo Panel InformationOrdered By: Sushant Cordon on 89-71-6167Whnoxca Glucose #2 CommentWill notify /rn [facility] EastTransferrin [Mass/volume] in Serum or Plasma Ordered By: Sushant Cordon on 32-82-1525Lkwsgaogebw [Mass/Vol]236 mg/dL 203-362[facility] EastVitamin B12 ser/plasOrdered By: Sushant Cordon on 32-88-2954Rygexmoew (Vitamin B12) [Mass/Vol]626 pg/mL 180-914[facility] EastActivated partial thromboplastin time (aPTT) in platelet poor plasma by coagulation aOrdered By: Vinnie Rivas on 17-14-5396iVBQ Coag (PPP) [Time]27.8 s25.1-36.5FK[facility] Comment on above:A hematocrit value greater than 55% may lead to inaccurate results in coagulation testing. Patientshaving hematocrit values >55% require a special collection tube for coagulation studies. Please contact the laboratory at [phone] for redraw instructions.Alanine aminotransferase [Enzymatic activity/volume] in Serum or PlasmaOrdered By: Vinnie Rivas on 65-43-3880JPR [Catalytic activity/Vol]34 U/L7-52[facility] EastAlbumin [Mass/volume] in Serum or Plasma by Bromocresol green (BCG) dye binding metho Ordered By: Vinnie Rivas on 53-95-2062Vvovstz BCG dye [Mass/Vol]4.0 g/dL3.5-5.7 [facility] EastAlkaline phosphatase [Enzymatic activity/volume] in Serum or PlasmaOrdered By: Vinnie Rivas on 41-28-3805DDJ [Catalytic activity/Vol]108 U/M34-889FzvurkvliRegency Hospital Cleveland EastAspartate aminotransferase [Enzymatic activity/volume] in Serum or PlasmaOrdered By: Vinnie Rivas on 66-52-5283IUT [Catalytic activity/Vol]46 U/Z32-76AygcufnmtRegency Hospital Cleveland EastBasophils Auto (Bld) [#/Vol]Ordered By: Vinnie Rivas on 38-75-2652Mdswylrod (Bld) [#/Vol]0.0 10*3/uL0.0-0.2FK[facility] Medical CenterBasophils/100 WBC Auto (Bld)Ordered By: Vinnie Rivas on 04-28-2023 Basophils/100 WBC (Bld)0.4 %.[facility] EastBilirubin Test strip Ql (U)Ordered By: Vinnie Rivas on 95-94-8802Gpdkklvqa Ql (U)Negative NegativeRegency Hospital Cleveland EastBilirubin.total [Mass/volume] in Serum or PlasmaOrdered By: Vinnie Rivas on 78-70-5697Solyjqgji [Mass/Vol]0.3 mg/dL 0.3-1.0[facility] EastCalcium [Mass/volume] in Serum or Plasma Ordered By: Vinnie Rivas on 09-38-4720Dgwpwkj [Mass/Vol]9.0 mg/dL8.6-10.3 [facility] EastCarbon dioxide, total [Moles/volume] in Serum or PlasmaOrdered By: Vinnie Rivas on 02-81-7476FB5 [Moles/Vol]30.4 mmol/L 21.0-31.0[facility] EastChloride [Moles/volume] in Serum or PlasmaOrdered By: Vinnie Rivas 86-55-7920Howzkbcs [Moles/Vol]101 mmol/L98-107 [facility] EastColor Auto (U)Ordered By: Vinnie Rivas on 36-08-6029Ecomm (U)YellowYellowRegency Hospital Cleveland EastCreatinine [Mass/volume] in Serum or PlasmaOrdered By: Vinnie Rivas on 01-17-5102Aiopekkkpx [Mass/Vol]0.71 mg/dL0.70-1.30[facility] EastEosinophils Auto (Bld) [#/Vol]Ordered By: Vinnie Rivas on 82-44-4788Zhessmooxyh (Bld) [#/Vol]0.0 10*3/uL0.0-0.45[facility] EastEosinophils/100 WBC Auto (Bld) Ordered By: Vinnie Rivas on 73-68-7513Bnrxbohmtle/100 WBC (Bld)0.5 %.[facility] EastErythrocyte distribution width Auto (RBC) [Ratio]Ordered By: Vinnie Rivas on 71-80-4275Vfghchjswjx distribution width (RBC) [Ratio]18.0 % 12.0-14.8[facility] EastFructosamine [Moles/volume] in Serum or PlasmaOrdered By: Sushant Cordon on 95-11-3506Pakgorbhnjlx [Moles/Vol] 565 umol/L0-285[facility] EastComment on above:Published reference interval for apparently healthysubjects between age 20 and 60 is 205 - 285 umol/L and in apoorly controlled diabetic population is 228 - 563 umol/Lwith a mean of 396 umol/L.Performed at: [id number] [id number] Director: Arturo Boles PhD, Phone: [phone] Globulin Calc (S) [Mass/Vol]Ordered By: Vinnie Rivas on 31-53-1039Wuxgxcof (S) [Mass/Vol]3.2 g/dLRegency Hospital Cleveland EastGlucose Glucometer (BldC) [Mass/Vol]Ordered By: Sushant Cordon on 21-28-2731Rntpbie [Mass/Vol]137 mg/dLRegency Hospital Cleveland EastComment on above:Random Glucose Reference Range is dependent on time and content of last meal. Glucose of more than 200 mg/dL in a nonstressed, ambulatory subject supports the diagnosis of Diabetes Mellitus.Glucose [Mass/volume] in Serum or PlasmaOrdered By: Vinnie Rivas on 97-76-8543Pbvsbeq [Mass/Vol]124 mg/gQ79-351TljfljptxRegency Hospital [facility] East Comment on above:ADA recommended reference rangeRandom Glucose Reference Range is dependent on time and content of last meal. Glucose of more than 200 mg/dL in a nonstressed, ambulatory subject supports the diagnosisof Diabetes Mellitus. Glucose mean value [Mass/volume] in Blood Estimated from glycated hemoglobin Ordered By: Sushant Cordon on 29-26-6235Bkmujij glucose Estimated from glycated hemoglobin (Bld) [Mass/Vol]309 mg/dLRegency Hospital Cleveland East Hematocrit Auto (Bld) [Volume fraction]Ordered By: Vinnie Rivas on 04-28-2023 Hematocrit (Bld) [Volume fraction]34.8 %38.8-50.0[facility] EastHemoglobin A1c percentageOrdered By: Sushant Cordon on 04-28-2023 HbA1c (Bld) [Mass fraction]12.4 %4.3-5.6FKet[facility] Soin Medical CenterComment on above:Increased risk for diabetes: 5.7 - 6.4diabetes: >6.4glycemic control for adults with diabetes: <7.0Hemoglobin [Mass/volume] in BloodOrdered By: Vinnie Rivas on 15-92-4464Zvvvwtyogt (Bld) [Mass/Vol]11.5 g/dL13.0-17.0[facility] EastINR in Platelet poor plasma by Coagulation assayOrdered By: Vinnie Rivas on 05-55-0146HJZ Coag (PPP) [Relative time]1.0 {INR}[facility] EastComment on above:INR Therapeutic Range A) Pre- and [...] strip (U) [Mass/Vol]Ordered By: Vinnie Rivas on 21-67-5648Qvtqdhq (U) [Mass/Vol]Negative NegativeRegency Hospital Cleveland EastLeukocytes [#/volume] corrected for nucleated erythrocytes in Blood by Automated counOrdered By: Vinnie Rivas on 34-64-8611TPX corrected for nucl RBC Auto (Bld) [#/Vol]9.7 10*3/uL4.1-10.5 [facility] EastLymphocytes Auto (Bld) [#/Vol]Ordered By: Vinnie Rivas on 19-49-1292Rwfexpbwyue (Bld) [#/Vol]1.4 10*3/uL1.00-4.8[facility] EastLymphocytes/100 WBC Auto (Bld)Ordered By: Vinnie Rivas on 03-00-2285Wlqznyjpsjc/100 WBC (Bld)14.8 %.[facility] Cancer CenterH Auto (RBC) [Entitic mass]Ordered By: Vinnie Rivas on 52-55-6259KHV (RBC) [Entitic mass]28.0 pg27.5-35.2FK[facility] So[facility] Medical CenterMCHC Auto (RBC) [Mass/Vol]Ordered By: Vinnie Rivas on 59-82-8548JRYI (RBC) [Mass/Vol]33.2 g/dL 32.5-35.6FKettering Health – Soin Medical CenterMCV Auto (RBC) [Entitic vol]Ordered By: Vinnie Rivas on 04-01-2092VWJ (RBC) [Entitic vol]84.3 fL83.5-101[facility] EastMonocyte distribution width [Entitic volume] in Blood by AutomatedOrdered By: Vinnie Rivas on 38-39-2531Vfhbytcs distribution width Auto (Bld) [Entitic vol]18.61 %0.00-20.00[facility] EastMonocytes Auto (Bld) [#/Vol]Ordered By: Vinnie Rivas on 96-78-0970Lbcbmlgpz (Bld) [#/Vol] 0.9 10*3/uL0.0-0.8[facility] EastMonocytes/100 WBC Auto (Bld) Ordered By: Vinnie Rivas on 37-68-9433Albmwgqba/100 WBC (Bld)9.3 %.[facility] EastNatriuretic peptide B [Mass/Vol]Ordered By: Vinnie Rivas on 37-87-5162Dkzxrahqurv peptide B (Bld) [Mass/Vol]665.0 pg/mL5-100[facility] EastNeutrophils Auto (Bld) [#/Vol]Ordered By: Vinnie Rivas on 14-47-9601Ifmjjlinzcn (Bld) [#/Vol]7.3 10*3/uL1.8-7.7FK[facility] Medical CenterNeutrophils/100 WBC Auto (Bld)Ordered By: Vinnie Rivas on 04-28-2023 Neutrophils/100 WBC (Bld)75.0 %.[facility] EastNitrite Test strip Ql (U)Ordered By: Vinnie Rivas on 94-23-2020Iykwkeg Ql (U)NegativeNegative [facility] EastNo Panel InformationOrdered By: Vinnie Rivas on 28-46-5579Mgjuoajfd GFR (CKD-EPI)> 60.0 mL/MinReg[facility] Creatinine Clearance (Chem60.38[facility] Nucleated erythrocytes [Presence] in Blood by Automated countOrdered By: Vinnie Rivas on 62-20-8541Pwoxfvatu RBC Auto Ql (Bld)0.1 /100{WBC}0-0.5FKettering Health – Soin Medical CenterPlatelet mean volume Auto (Bld) [Entitic vol]Ordered By: Vinnie Rivas on 83-73-9905Hhgwjztm mean volume (Bld) [Entitic vol]9.3 fL6.6-10.1 [facility] EastPlatelets Auto (Bld) [#/Vol]Ordered By: Vinnie Rivas on 49-94-8443Jlhkicmsi (Bld) [#/Vol]206 10*3/hS956-535VtjkfnafmRegency Hospital Cleveland EastPotassium [Moles/volume] in Serum or PlasmaOrdered By: Vinnie Rivas on 79-96-4189Pyasftzeb [Moles/Vol]4.9 mmol/L3.5-5.1FKettering Health – Soin Medical CenterProtein Auto test strip (U) [Mass/Vol]Ordered By: Vinnie Rivas on 67-19-7210Oieqmdw (U) [Mass/Vol]NegativeNegativeRegency Hospital Cleveland EastProtein [Mass/volume] in Serum or PlasmaOrdered By: Vinnie Rivas on 49-41-7169Qidbszw [Mass/Vol]7.2 g/dL6.4-8.9[facility] Prothrombin time (PT)Ordered By: Vinnie Rivas on 10-55-2829MX Coag (PPP) [Time] 11.8 s9.0-12.9[facility] EastComment on above:A hematocrit value greater than 55% may lead to inaccurate results in coagulation testing. Patientshaving hematocrit values >55% require a special collection tube for coagulation studies. Please contact the laboratory at [phone] for redraw instructions.RBC Auto (Bld) [#/Vol]Ordered By: Vinnie Rivas on 42-03-0135HCR (Bld) [#/Vol]4.12 10*6/uL3.90-5.60[facility] Hospitalerum or plasma albumin/globulin mass ratioOrdered By: Vinnie Rivas on 04-28-2023 Albumin/Globulin [Mass ratio]1.3 {ratio}[facility]orial Hospitalerum or plasma anion gap determinationOrdered By: Vinnie Rivas on 65-09-1810Nygbj gap [Moles/Vol]9.5 mmol/L6.0-15.0Memorial Hospitalodium [Moles/volume] in Serum or PlasmaOrdered By: Vinnie Rivas on 09-62-0016Atwrnu [Moles/Vol]136 mmol/L958-767PpjkpkjttMemorial Hospitalpecific gravity Auto test strip (U) [Rel density]Ordered By: Vinnie Rivas on 54-68-9955Pvxeemek gravity (U) [Rel density]1.0091.001-1.030[facility] Troponin I.cardiac [Mass/volume] in Serum or Plasma by Detection limit <= 0.01 ng/Ordered By: Vinnie Rivas 71-86-3041Lvduweel I.cardiac DL <= 0.01 ng/mL [Mass/Vol]38.3 pg/mL0.0-20.0[facility] EastUrea nitrogen [Mass/volume] in Serum or PlasmaOrdered By: Vinnie Rivas 75-10-0712Jgzc nitrogen [Mass/Vol]15 mg/dL7-25[facility] EastUrine clarity by refractometry automatedOrdered By: Vinnie Rivas 53-54-7181Dixurtx Refractometry automated (U)ClearClearFKettering Health – Soin Medical CenterUrine glucose measurement by automated test strip (mass/volume)Ordered By: Vinnie Rivas 68-27-5531Gmtqzem Auto test strip (U) [Mass/Vol]Normal mg/dLNormal [facility] EastUrine hemoglobin detection by automated test stripOrdered By: Vinnie Rivas on 74-10-6395Lsepkpcfcr Auto test strip Ql (U) NegativeNegativeRegency Hospital Cleveland EastUrine leukocyte esterase detection by automated test stripOrdered By: Vinnie Rivas on 96-18-6883Sphpeyfso esterase Auto test strip Ql (U)NegativeNegativeRegency Hospital Cleveland EastUrobilinogen Auto test strip (U) [Mass/Vol]Ordered By: Vinnie Rob on 34-16-2113Wgheqtiqnlss (U) [Mass/Vol]Normal mg/dLNormalRegency Hospital Cleveland EastWBC Auto (Bld) [#/Vol]Ordered By: Vinnie Rivas on 18-20-5633CRX (Bld) [#/Vol]9.7 10*3/uL4.1-10.5FKettering Health – Soin Medical CenterpH Auto test strip (U)Ordered By: Vinnie Rivas on 08-08-3140eI (U)6.5 [pH]5.0-9.0[facility] EastCoding Summaryon 04-42-6477Hjcirr SummaryHTMLBase 64 FunjmemmXTi5nTq+PGhlYWQ+IR3MWAUcT05jnEExgT6xU9SXTNwHYorcMJQQXOhVKcSockSpMU0dhEQr ZXJu [file] bGx (more content not included)...[facility] HospitalConsent Formson 15-42-2649Mpxgagp [id number]#1.00OTGTIFFNormal [facility]aritan HospitalBUN/Creat Ratioon 19-84-7788tIHS Non AA>60Invalid Interpretation [facility]ard HospitalComment on above:Performed By: #### [id number] #### [facility] (DEFAULT) [address] [place] [address] 87559yHZD AA>60Invalid Interpretation [facility] Comment on above:Performed By: #### [id number] #### [facility] (DEFAULT) [address] [place] [address] 04086Ltkspugjjq [Mass/Vol]0.69 mg/dLLow0.90-1.30[facility] HospitalComment on above:Performed By: #### [id number] #### [facility] (DEFAULT) [address] [place] [address], [place] [address]Jlrj nitrogen [Mass/Vol]14 mg/dLNormal8-26[facility] HospitalComment on above:Performed By: #### [id number] #### [facility] (DEFAULT) [address] [place] [address] 55266Guqg nitrogen/Creatinine [Mass ratio]20.2 mg/mgHigh 4.6-16.2[facility] HospitalComment on above:Performed By: #### [id number] #### [facility] (DEFAULT) [address] [place] [address] 60[address]LJ Urogramon 18-33-9861AG UrogramCLINICAL HISTORY: Hydronephrosis. COMPARISON: None available. TECHNIQUE: [...] Mima Solorzano MD 04/23/23 3:17 pm Technologist: MACKENZIEParma Community General HospitalProvider Orderson 74-91-7622Taoatdzt [id number]#1.00OTGTIFFMercy Health Anderson HospitalUS RENAL AND BLADDERon 55-33-9229[place]nz[place] [address] Ultrasound Report Signed Patient: MANOLO ROCHE MR#: [id number] : 1935 Acct:[id number] Age/Sex: 88 / M ADM Date: 04/12/23 Loc: US Attending Dr: JonesStaff Physician Morin Ordering Physician: Maci Morton M.D. Date of Service: 04/12/23 Procedure(s): US renal bladder Accession Number(s): [id number] cc: Maci Morton M.D.; MARIE TEJED[place] [phone] Patient Name: MANOLO ROCHE MRN: [id number] date: 1935 Sex: M Assigned Patient Location: [place] Current Patient Location: [place] Accession/Order Number: [id number] Exam Date: 04/12/2023 09:03 Report Date: 04/12/2023 [...] Signed By: 04/12/23 1011 DD/ 1008 TD/TT: Fabric Designer:MIGUELANGELHRadiology, Radiologist, - 04/15/2023 [place] [address] Ultrasound Report Signed Patient: MANOLO ROCHE MR#: [id number] : 1935 Acct:[id number] Age/Sex: 88 / M ADM Date: 04/12/23 Loc: US Attending Dr: Haley-Staff Physician Morin Ordering Physician: Maci Morton M.D. Date of Service: 04/12/23 Procedure(s): US renal bladder Accession Number(s): [id number] cc: PhysicianMaci M.D.; MARIE TEJEDA [place] [id number] Patient Name: MANOLO ROCHE MRN: [id number] date: 1935 Sex: M Assigned Patient Location: Current Patient Location: [place] Accession/Order Number: [id number] Exam Date: 04/12/2023 09:03 Report Date: 04/12/2023 [...] Signed By: 04/12/23 1011 DD/ 1008 TD/TT: Fabric Designer: [facility] HealthcareRadiology Study observation (narrative)[facility] CenterUS RENAL AND BLADDEROrdered By: Radiologist Radiology on 56-17-2258EVLL Snapette Work Phone: Provider Orderson 39-28-5411Gdthbqkn Orders [id number]#1.00OTGTIFFUniversity Hospitals Geauga Medical Center RANDOMon 59-45-4796Scpkfwmgy Ql (U)NegativeNormalNEGATIVECrystal Clinic Orthopedic Center Comment on above:Performed By: #### CMP, LIPID #### [facility] [address] [place] [address] Dr. Kylee Oneill (U)CLEARNormalCLEARCrystal Clinic Orthopedic CenterComment on above: Performed By: #### CMP, LIPID #### [facility] [address] [place] [address] Dr. Kylee De La Garza (U)YELLOWNormalYELLOWCrystal Clinic Orthopedic CenterComment on above: Performed By: #### CMP, LIPID #### [facility] [address] [place] [address] Dr. Yilan ChangGlucose Ql (U)NegativeNormalNEGATIVECrystal Clinic Orthopedic CenterComment on above:Performed By: #### CMP, LIPID #### [facility] [address] [place] [address] [address] Kylee BunchHemoglobin Ql (U)TRACE-INTACTAbnormalNEGATIVECrystal Clinic Orthopedic CenterComment on above:Performed By: #### CMP, LIPID #### [facility] [address] [place] [address] [address] Kylee BunchKetones Ql (U)TRACEAbnormalNEGATIVECrystal Clinic Orthopedic CenterComment on above:Performed By: #### CMP, LIPID #### [facility] [address] [place] [address] Dr. Kylee BunchLEUKOCYTESNegativeNormalNEGATIVECrystal Clinic Orthopedic CenterComdeckerville community hospital on above:Performed By: #### CMP, LIPID #### [facility] [address] [place] [address] Dr. Kylee BunchNitrite Ql (U)NegativeNormalNEGATIVECrystal Clinic Orthopedic CenterComment on above:Performed By: #### CMP, LIPID #### [facility] [address] [place] [address] Dr. Kylee BunchpH (U)5.5 [pH]Normal5-9The [facility] on above: Performed By: #### CMP, LIPID #### [facility] [address] [place] [address] Dr. Kylee BunchSPEC GRAVITY>=1.697Ejcmkceb6.005-<=1.025The [facility] Comment on above:Performed By: #### CMP, LIPID #### [facility] [address] [place] [address] Dr. Kylee BunchUA PROTEINNegativeMoapaNEGATIVE/ TRACEThe [facility] Comment on above:Performed By: #### CMP, LIPID #### [facility] [address] [place] [address] Dr. Kylee BunchUrobilinogen Qn (U)0.2 {Gemini'U}/dLNormal0.2 - 1.0The [facility] HospitalComment on above:Performed By: #### CMP, LIPID #### [facility] [address] [place] [address] Dr. Kylee Locke AUTO DIFFon 78-20-9882RBSW #0.0 103/ulNormal0.0-0.1The [facility] HospitalComment on above:Performed By: #### CMP, LIPID #### [facility] [address] [place] [address] Dr. Kyele BunchBasophils/100 WBC (Bld)0.7 %Normal0.2-2.0[facility] Comment on above:Performed By: #### CMP, LIPID #### [facility] [address] [place] [address] Dr. Kylee Del Castillo #0.1 103/ulNormal0.0-0.7The [facility] HospitalComment on above: Performed By: #### CMP, LIPID #### [facility] [address] [place] [address] Dr. Kylee Steinbergosinophils/100 WBC (Bld)2.6 %Normal0.9-7.0The [facility] Comment on above:Performed By: #### CMP, LIPID #### [facility] [address] [place] [address] Dr. Kylee Steinbergrythrocyte distribution width (RBC) [Ratio]17.2 %Critically high 11.0-15.0[facility] Orthopedic CenterComment on above:Performed By: #### CMP, LIPID #### [facility] [address] [place] [address] Dr. Kylee BunchHematocrit (Bld) [Volume fraction]36.1 %Critically low42.0-54.0 The [facility] HospitalComment on above:Performed By: #### CMP, LIPID #### [facility] [address] [place] [address] Dr. Kylee BunchHemoglobin (Bld) [Mass/Vol]12.1 g/dLCritically low14.0-18.0The [facility] HospitalComment on above:Performed By: #### CMP, LIPID #### [facility] [address] [place] [address] [address] Kylee Mckoy #0.01 10e3/ulNormal0.00-0.03The [facility] on above:Performed By: #### CMP, LIPID #### [facility] [address] [place] [address] Dr. Kylee Mckoy %0.2 %Normal0.0-0.5The [facility] HospitalComdeckerville community hospital on above: Performed By: #### CMP, LIPID #### [facility] [address] [place] [address] Dr. Kylee Jones #1.7 103/ulNormal1.2-3.8The [facility] HospitalComment on above:Performed By: #### CMP, LIPID #### [facility] [address] [place] [address] Dr. Kylee Casashocytes/100 WBC (Bld)30.9 %Lokofi67.5-60.0The [facility] on above:Performed By: #### CMP, LIPID #### [facility] [address] [place] [address] Dr. Kylee BauerUAL DIFF REQNONormalThe [facility] HospitalComdeckerville community hospital on above: Performed By: #### CMP, LIPID #### [facility] [address] [place] [address] Dr. Kylee Beasley (RBC) [Entitic mass]27.4 hlPgabwr95.9-34.0The [facility] on above:Performed By: #### CMP, LIPID #### [facility] [address] [place] [address] Dr. Kylee Beasley (RBC) [Mass/Vol]33.5 g/jOMliiqe58.9-35.2The [facility] on above:Performed By: #### CMP, LIPID #### [facility] [address] [place] [address] Dr. Kylee Beasley (RBC) [Entitic vol]81.9 eUCpzlsf61.0-94.0The [facility] HospitalComment on above:Performed By: #### CMP, LIPID #### [facility] [address] [place] [address] [address] Kylee Abarca #0.7 103/ulNormal0.3-0.8The [facility]ille Hospitalment on above:Performed By: #### CMP, LIPID #### [facility] [address] [place] [address] [address] Kylee Mirelesocytes/100 WBC (Bld)12.9 %Critically high1.7-12.0The [facility] HospitalComdeckerville community hospital on above:Performed By: #### CMP, LIPID #### [facility] [address] [place] [address] Dr. Kylee Shook #2.9 103/ulNormal1.4-6.5The [facility] on above:Performed By: #### CMP, LIPID #### [facility] [address] [place] [address] Dr. Kylee Martinutrophils/100 WBC (Bld)52.7 %Ilvosq74.0-75.0The [facility] on above:Performed By: #### CMP, LIPID #### [facility] [address] [place] [address] Dr. Kylee BunchPLT213 103/jmTpumsm815-870Uiz [facility] on above: Performed By: #### CMP, LIPID #### [facility] [address] [place] [address] Dr. Kylee BunchRBC4.41 106/ulCritically low4.70-6.10The [facility] on above:Performed By: #### CMP, LIPID #### [facility] [address] [place] [address] Dr. Kylee BunchWBC5.4 103/ulNormal4.0-11.0The [facility] on above: Performed By: #### CMP, LIPID #### [facility] [address] [place] [address] Dr. Kylee JhaID PROFILEon 51-15-6770EEOL-HDL RATIO NORMSEE BELOWNormalThe [facility]vo HospitalComment on above:Result Comment: 3.3 - 4.4 LOW RISK 4.4 - 7.1 AVERAGE RISK 7.1 - 11.0 MODERATE RISK >11.0 HIGH RISKPerformed By: #### CMP, LIPID #### [facility] [address] [place] [address] [address] Kylee BunchCholesterol [Mass/Vol]166 mg/dLNormal<=200[facility] Comment on above:Performed By: #### CMP, LIPID #### [facility] [address] [place] [address] [address] Kylee BunchCholesterol in HDL [Mass/Vol]71 mg/dLCritically bfxy99-11LcuCrystal Clinic Orthopedic CenterComment on above:Performed By: #### CMP, LIPID #### [facility] [address] [place] [address] [address] Kylee BunchCholesterol in LDL [Mass/Vol]84.8 mg/dLMadison HealthComment on above:Performed By: #### CMP, LIPID #### [facility] [address] [place] [address] [address] Kylee Garyestersalinas.total/Cholesterol in HDL [Mass ratio]2.3 {ratio} NormalCrystal Clinic Orthopedic CenterComment on above:Performed By: #### CMP, LIPID #### [facility] [address] [place] [address] Dr. Kylee BunchHDL NORMAL> or = 60 mg/dl - LOW CARDIOVASCULAR RISK <40 mg/dl - HIGH CARDIOVASCULAR RISKMadison HealthComment on above:Performed By: #### CMP, LIPID #### [facility] [address] [place] [address] Dr. Kylee BunchLDL CALC NORMALSEE BELOWMadison HealthComment on above:Result Comment: <100 mg/dl OPTIMAL 100 - 129 mg/dl NEAR OR ABOVE OPTIMAL 130 - 159 mg/dl BORDERLINE HIGH 160 - 189 mg/dl HIGH >190 mg/dl VERY HIGH Performed By: #### CMP, LIPID #### [facility] [address] [place] [address] Dr. Kylee BunchTriglyceride [Mass/Vol]51 mg/dLNormal<=150The [facility] Comment on above:Performed By: #### CMP, LIPID #### [facility] [address] [place] [address] Dr. Kylee BunchVLDL CALC10.2 mg/dLNormalThe [facility] HospitalComment on above: Performed By: #### CMP, LIPID #### [facility] [address] [place] [address] Dr. Kylee HernandezALBUMIN, RAND URon 37-12-7790xISJ9.0 mg/LNormal<=30.0The [facility] HospitalComment on above:Performed By: #### MALBR #### [facility] [address] [place] [address] Dr. Kylee BunchPROF 14(COMP METB)on 35-88-8667Txtdalo [Mass/Vol]3.5 g/dLNormal 3.4-5.0The [facility] HospitalComment on above:Performed By: #### CMP, LIPID #### [facility] [address] [place] [address] Dr. Kylee BunchAlbumin/Globulin [Mass ratio]1.0 {ratio}NormalThe [facility] HospitalComment on above:Performed By: #### CMP, LIPID #### [facility] [address] [place] [address] Dr. Kylee Forman [Catalytic activity/Vol]97 U/RFzturn49-557Kuw [facility] HospitalComment on above:Performed By: #### CMP, LIPID #### [facility] [address] [place] [address] Dr. Kylee Shelton [Catalytic activity/Vol]29 U/EJemgpg38-94Clc [facility] HospitalComment on above:Performed By: #### CMP, LIPID #### [facility] [address] [place] [address] Dr. Kylee Warner gap [Moles/Vol]6.7 mmol/LNormalThe [facility] HospitalComment on above:Performed By: #### CMP, LIPID #### [facility] [address] [place] [address] [address] Kylee BunchAST [Catalytic activity/Vol]28 U/JOyrsoc42-42Mit [facility] HospitalComment on above:Performed By: #### CMP, LIPID #### [facility] [address] [place] [address] [address] Kylee BunchBilirubin [Mass/Vol]0.4 mg/dLNormal0.2-1.0The [facility] Comment on above:Performed By: #### CMP, LIPID #### [facility] [address] [place] [address] [address] Kylee BunchCalcium [Mass/Vol]8.9 mg/dLNormal8.5-10.1The [facility] Comment on above:Performed By: #### CMP, LIPID #### [facility] [address] [place] [address] [address] Kylee BunchChloride [Moles/Vol]99 mmol/CCgoizi70-934Emg [facility] Comment on above:Performed By: #### CMP, LIPID #### [facility] [address] [place] [address] [address] Kylee BunchCO2 [Moles/Vol]33.4 mmol/LCritically high21.0-32.0The [facility] HospitalComment on above:Performed By: #### CMP, LIPID #### [facility] [address] [place] [address] [address] Kylee BunchCreatinine [Mass/Vol]0.80 mg/dLNormal0.70-1.30The [facility] HospitalComment on above:Performed By: #### CMP, LIPID #### [facility] [address] [place] [address] Dr. Kylee SteinbergGFR-AF LUXEMBOURGER>60Normal>=60The [facility] HospitalComment on above:Performed By: #### CMP, LIPID #### [facility] [address] [place] [address] Dr. Kylee SteinbergGFR-NON AF LUXEMBOURGER>60Normal>=60The [facility] HospitalComment on above:Performed By: #### CMP, LIPID #### [facility] [address] [place] [address] [address] Kylee BunchGlobulin (S) [Mass/Vol]3.4 g/dLNormMercy Health St. Joseph Warren HospitalComment on above:Performed By: #### CMP, LIPID #### [facility] [address] [place] [address] [address] Kylee BunchGlucose [Mass/Vol]188 mg/dLCritically oxgo86-918Dfs [facility] HospitalComment on above:Performed By: #### CMP, LIPID #### [facility] [address] [place] [address] Dr. Kylee BunchPotassium [Moles/Vol]4.1 mmol/LNormal3.5-5.1The [facility] Comment on above:Performed By: #### CMP, LIPID #### [facility] [address] [place] [address] Dr. Kylee BunchProtein [Mass/Vol]6.9 g/dLNormal6.4-8.2The [facility] Comment on above:Performed By: #### CMP, LIPID #### [facility] [address] [place] [address] Dr. Kylee BunhcSodium [Moles/Vol]135 mmol/LCritically nbf343-446Dvt [facility] HospitalComment on above:Performed By: #### CMP, LIPID #### [facility] [address] [place] [address] Dr. Kylee BunchUrea nitrogen [Mass/Vol]15.0 mg/dLNormal7.0-18.0The [facility] HospitalComment on above:Performed By: #### CMP, LIPID #### [facility] [address] [place] [address] Dr. Kylee Saenz nitrogen/Creatinine [Mass ratio]18.8 mg/mgNoKettering Health DaytonComment on above:Performed By: #### CMP, LIPID #### [facility] [address] [place] [address] Dr. Kylee BunchUA RANDOM W/MICROSCOPICon 20-84-6438UKJYCPMFYZDC SEENNormalNONE SEENCrystal Clinic Orthopedic CenterComment on above:Performed By: #### CMP, LIPID #### [facility] [address] [place] [address] [address] Kylee BunchBilirubin Ql (U)NegativeNormalNEGOhioHealth Hardin Memorial Hospital Comment on above:Performed By: #### CMP, LIPID #### [facility] [address] [place] [address] [address] Kylee Perry SEENNormalNONE SEENCrystal Clinic Orthopedic CenterComment on above:Performed By: #### CMP, LIPID #### [facility] [address] [address] [address] Kylee BunchClarity (U)CLEARNormalCLEARCrystal Clinic Orthopedic CenterComment on above: Performed By: #### CMP, LIPID #### [facility] [address] [place] [address] Dr. Kylee Kowalskilor (U)LT. YELLOWNormalYELLOWCrystal Clinic Orthopedic CenterComment on above:Performed By: #### CMP, LIPID #### [facility] [address] [place] [address] Dr. Kylee BunchCrystals LM Nom (Urine sed)NONE SEENNormalNONE SEENCrystal Clinic Orthopedic CenterComment on above:Performed By: #### CMP, LIPID #### [facility] [address] [place] [address] Dr. Pichardo ChangEpithelial cells LM Ql (Urine sed)FEWAbnormalNONE SEEN /RARECrystal Clinic Orthopedic CenterComment on above:Performed By: #### CMP, LIPID #### [facility] [address] [place] [address] [address] Kylee BunchGlucose Ql (U)NegativeNormalNEGOhioHealth Hardin Memorial HospitalComment on above:Performed By: #### CMP, LIPID #### [facility] [address] [place] [address] Dr. Kylee BunchHemoglobin Ql (U)TRACE-LYSEDAbsoutheast missouri community treatment centeralNEGOhioHealth Hardin Memorial Hospital Comment on above:Performed By: #### CMP, LIPID #### [facility] [address] [place] [address] [address] Kylee Barrera Ql (U)NegativeNormalNEGATIVEThe [facility] HospitalComment on above:Performed By: #### CMP, LIPID #### [facility] [address] [place] [address] [address] Kylee BunchLEUKOCYTESNegativeNormalNEGATIVEThe [facility] HospitalComment on above:Performed By: #### CMP, LIPID #### [facility] [address] [place] [address] [address] Kylee AguirreCOUSVERO SEENNormalNONE SEENCrystal Clinic Orthopedic CenterComment on above:Performed By: #### CMP, LIPID #### [facility] [address] [place] [address] [address] Kylee Dooley Ql (U)NegativeNormalNEGATIVEThe [facility] HospitalComment on above:Performed By: #### CMP, LIPID #### [facility] [address] [place] [address] Dr. Kylee BunchpH (U)6.0 [pH]Normal5-9The [facility] HospitalComment on above: Performed By: #### CMP, LIPID #### [facility] [address] [address] [address] Kylee BunchTtpdbSJS6-2Vnsyfwra2-5Bio [facility] on above:Performed By: #### CMP, LIPID #### [facility] [address] [place] [address] Dr. Kylee BunchSPEC GRAVITY1.763Mlducd9.005-<=1.025The [facility] / Crille Hospitalment on above:Performed By: #### CMP, LIPID #### [facility] [address] [place] [address] Dr. Kylee Rodas PROTEINNegativeNormalNEGATIVE/ TRACEThe [facility] on above:Performed By: #### CMP, LIPID #### [facility] [address] [place] [address] Dr. Kylee Correiabilsandhya Qn (U)0.2 {Gemini'U}/dLNormal0.2 - 1.0The Provo HospitalComment on above:Performed By: #### CMP, LIPID #### [facility] [address], [place] [address] Dr. Kylee العلي SEENNormalNONE SEENCrystal Clinic Orthopedic CenterComment on above: Performed By: #### CMP, LIPID #### [facility] [address] [place], [place] [address] Dr. Kylee Christiansen Metab w/rfx MGon 01-07-2022(cont.)NormalMercy Health Tiffin HospitalComment on above:Result Comment: Average GFR for 70 or more years old: 75 mL/min/1.73sq m Chronic Kidney Disease: <60 mL/min/1.73sq m Kidney failure: <15 mL/min/1.73sq m eGFR calculated using average adult body mass. Additional eGFR calculator available at: http://www.Orphazyme/multiple_crcl_2012.htmPerformed By: #### CDP, MELVIN, BMPX, MG, IPF #### [facility] [address] [place] [phone] Fine Craft Artist: Francisco J Fonseca MDAnion gap [Moles/Vol]9 mmol/LNormal9-17Mer[facility] Health Tiffin HospitalComment on above:Performed By: #### CDP, MELVIN, BMPX, MG, IPF #### [facility] [address] [place] [address] Fine Craft Artist: MARLENY Brandonalcium [Mass/Vol]7.8 mg/dLLow8.6-10.4Mer[facility] Tiffin HospitalComment on above:Performed By: #### CDP, MELVIN, BMPX, MG, IPF #### [facility] [address] [place] [address] Fine Craft Artist: MARLENY Brandonhloride [Moles/Vol]102 mmol/MCugkzd45-120IewidMercy Health Tiffin HospitalComment on above:Performed By: #### CDP, MELVIN, BMPX, MG, IPF #### [facility] [address] [place] [address] Fine Craft Artist: Francisco J Fonseca MDCO2 [Moles/Vol]24 mmol/WBxrwrf55-66WsjpdMercy Health Tiffin HospitalComment on above:Performed By: #### CDP, MELVIN, BMPX, MG, IPF #### [facility] [address] [place] [address] Fine Craft Artist: Francisco J Fonseca MDCreatinine [Mass/Vol]0.49 mg/dLLow0.70-1.20Mer[facility] Tiffin HospitalComment on above:Performed By: #### CDP, MELVIN, BMPX, MG, IPF #### [facility] [address] [place] [address] Fine Craft Artist: Francisco J Fonseca MDGFR, Amer>60Normal>60[facility] Tiffin HospitalComment on above:Performed By: #### CDP, MELVIN, BMPX, MG, IPF #### [facility] [address] [place] [address] Fine Craft Artist: Francisco J Fonseca MDGFR,non Amer>60Normal>60[facility] Tiffin HospitalComment on above:Performed By: #### CDP, MELVIN, BMPX, MG, IPF #### [facility] [address] [place] [address] Fine Craft Artist: Francisco J Fonseca MDGlucose [Mass/Vol]79 mg/hZQzfswe53-09Ldrec [facility] HospitalComment on above:Performed By: #### CDP, MELVIN, BMPX, MG, IPF #### [facility] [address] [place] [address] Fine Craft Artist: Francisco J Fonseca MDPotassium [Moles/Vol]3.5 mmol/LLow3.7-5.3MLoma Linda University Children's HospitalComment on above:Performed By: #### CDP, MELVIN, BMPX, MG, IPF #### [facility] [address] [place] [address] Fine Craft Artist: MEIR Brandonodium [Moles/Vol]135 mmol/IWxhjqy508-850NkdzpMercy Health Tiffin HospitalComment on above:Performed By: #### CDP, MELVIN, BMPX, MG, IPF #### [facility] [address] [place] [address] Fine Craft Artist: Francisco J Fonseca MDUrea nitrogen [Mass/Vol]7 mg/dLLow8-23Mer[facility] Health Tiffin HospitalComment on above:Performed By: #### CDP, MELVIN, BMPX, MG, IPF #### [facility] [address] [place] [address] Fine Craft Artist: MARLENY Brandon with Diffon [id number]. Basophil0.00 k/uL Normal0.0-0.2[facility] Faith HospitalComment on above:Performed By: #### CDP #### [address] [address] Fine Craft Artist: Vidhya Brandon.Imm.Granulocyte0.00 k/uLNormal0.00-0.30Mer[facility] Tiffin HospitalComment on above:Performed By: #### CDP #### [facility] [address] [place] [address] Fine Craft Artist: Vidhya Brandon.Neutrophil (Seg)8.33 k/uLHigh1.8-7.7MerSutter Delta Medical CenterComment on above:Performed By: #### CDP #### [facility] [address] [place] [address] Fine Craft Artist: Francisco J Fonseca MDEosinophils (Bld) [#/Vol]0.11 10*3/uLNormal 0.0-0.4Mer[facility] Tiffin HospitalComment on above:Performed By: #### CDP #### [facility] Review Track[facility] [address] [place] [address] Fine Craft Artist: Francisco J Fonseca MDLymphocytes (Bld) [#/Vol]1.22 10*3/uLNormal 1.0-4.8Mer[facility] Tiffin HospitalComment on above:Performed By: #### CDP #### [address] [address] Fine Craft Artist: MARK Brandononocytes (Bld) [#/Vol]1.44 10*3/uLHigh0.1-0.8 [facility] Tiffin HospitalComment on above:Performed By: #### CDP #### [address] [address] Fine Craft Artist: Francisco J Fonseca MDNeutrophil (Seg)75 %Vhih94-86KjytaMercy Health Tiffin HospitalComment on above:Performed By: #### CDP #### [address] [address] Fine Craft Artist: Francisco J Fonseca MDNRBC Automated0.0 per 100 WBCNormal0.0Mer[facility] Health Tiffin HospitalComment on above:Performed By: #### CDP #### [address] [address] Fine Craft Artist: Francisco J Fonseca MDWBC (Bld) [#/Vol]11.1 10*3/uLNormal3.5-11.3MLoma Linda University Children's HospitalComment on above:Performed By: #### CDP #### [address] [address] Fine Craft Artist: Francisco J Fonseca MDBasophils/100 WBC (Bld)0 %Normal0-2BON [facility] CENTERComdeckerville community hospital on above:Performed By: #### CDP #### [address] [address] Fine Craft Artist: Francisco J Fonseca MDEosinophils/100 WBC (Bld)1 %Normal1-4BON [facility] MEDICAL CENTERComment on above:Performed By: #### CDP #### [address] [address] Fine Craft Artist: Toan Brandonmature granulocytes/100 WBC (Bld)0 %Xojhbh0DRJ [facility] MED[facility] CENTERComment on above:Performed By: #### CDP #### [address] [address] Fine Craft Artist: Francisco J Fonseca MDLymphocytes/100 WBC (Bld)11 %Lzh08-18CAC [facility] MEDICAL CENTERComment on above:Performed By: #### CDP #### [address] [address] Fine Craft Artist: MARK Brandononocytes/100 WBC (Bld)13 %High1-7BON [facility] MEDICAL CENTERComment on above:Performed By: #### CDP #### [address] [address] Fine Craft Artist: MARK Brandonorphology Walter (Bld) [Interp]ANISOCYTOSIS PRESENTNormalBON [facility] MEDICAL CENTERComdeckerville community hospital on above:Result Comment: MICROCYTOSIS PRESENT 1+ TARGET CELLS 1+ ACANTHOCYTESPerformed By: #### CDP #### [address] [address] Fine Craft Artist: Francisco J Fonseca MDErythrocyte distribution width (RBC) [Ratio]17.3 %High11.8-14.4[facility]cy [facility] HospitalComment on above:Performed By: #### CDP #### [address] [address] Fine Craft Artist: Francisco J Fonseca MDHematocrit (Bld) [Volume fraction]36.6 %Low 40.7-50.3[facility]cy [facility] HospitalComment on above:Performed By: #### CDP #### [address] [address] Fine Craft Artist: Francisco J Fonseca MDHemoglobin (Bld) [Mass/Vol]13.0 g/dLNormal 13.0-17.0Mer[facility] Tiffin HospitalComment on above:Performed By: #### CDP #### [address] [address] Fine Craft Artist: MARK BrandonCH (RBC) [Entitic mass]26.5 siJoshhi79.2-33.5 [facility]iffin HospitalComment on above:Performed By: #### CDP #### [address] [address] Fine Craft Artist: MARK BrandonCHC (RBC) [Mass/Vol]35.5 g/wASpue36.4-34.8[facility] Tiff[facility] HospitalComment on above:Performed By: #### CDP #### [address] [address] Fine Craft Artist: MARK BrandonCV (RBC) [Entitic vol]74.5 fLLow82.6-102.9Mer[facility] Tiffin HospitalComment on above:Performed By: #### CDP #### [address] [address] Fine Craft Artist: Isra Brandontelet CountSee Reflexed IPF ResultNormal 138-453Mer[facility] Health Tiffin HospitalComment on above:Performed By: #### CDP #### [address] [address] Fine Craft Artist: LEIGH BrandonBC (Bld) [#/Vol]4.91 10*6/uLNormal4.21-5.77 [facility]iffin HospitalComment on above:Performed By: #### CDP #### [address] [address] Fine Craft Artist: Francisco J Fonseca MDLaboratory - Chemistry and Chemistry - challenge on [id number] [Mass/Vol]1.5 mg/dLLow1.6 - 2.6 mg/dLBON SECOURS MERCY HEALTHAnion gap [Moles/Vol]9 mmol/L9 - 17 mmol/LBON SECOURS MERCY HEALTHCalcium [Mass/Vol]7.8 mg/dLLow8.6 - 10.4 mg/dLBON SECOURS MERCY HEALTHChloride [Moles/Vol]102 mmol/L98 - 107 mmol/LBON SECOURS MERCY HEALTHCO2 [Moles/Vol]24 mmol/L20 - 31 mmol/LBON SECOURS MERCY HEALTHCreatinine [Mass/Vol]0.49 mg/dLLow 0.70 - 1.20 mg/dLBON SECOURS MERCY HEALTHGFR/1.73 sq M.predicted MDRD (S/P/Bld) [Vol rate/Area]BON [facility] HOSPITALDiverse School Travel HEALTHComment on above:Average GFR for 70 or more years old: 75 mL/min/1.73sq m Chronic Kidney Disease: <60 mL/min/1.73sq m Kidney failure: <15 mL/min/1.73sq m eGFR calculated using average adult body mass. Additional eGFR calculator available at: http://www.Orphazyme/multiple_crcl_2011.htm Glucose [Mass/Vol]79 mg/dL70 - 99 mg/dLBON SECOURS MERCY HEALTHPhosphate [Mass/Vol]2.3 mg/dLLow2.5 - 4.5 mg/dLBON [facility]OURS MERCY HEALTHPotassium [Moles/Vol]3.5 mmol/LLow3.7 - 5.3 mmol/LBON SECOURS MERCY HEALTHSodium [Moles/Vol]135 mmol/L135 - 144 mmol/LBON SECOURS [facility] SURGICAL HOSPITALY HEALTHUrea nitrogen (BldV) [Mass/Vol]7 mg/dLLow8 - 23 mg/dLBON SECOURS [facility] SUR[facility] HOSPITALY HEALTHLaboratory - Hematology and Cell countson 69-31-9873Kncagzapc (Bld) [#/Vol]0.00 10*3/uLBON SECOURS MERCY HEALTHHematocrit (Bld) [Volume fraction]36.6 %Low40.7 - 50.3 %BON SECOURS MascotaNubeY HEALTHHemoglobin (Bld) [Mass/Vol]13.0 g/dL13.0 - 17.0 g/dLBON SECMERCY HEALTH CLERMONT HOSPITALH (RBC) [Entitic mass]26.5 pg25.2 - 33.5 pgBALLAD HEALTHHC (RBC) [Mass/Vol]35.5 g/eZHbls13.4 - 34.8 g/dLBON SECMERCY HEALTH CLERMONT HOSPITALV (RBC) [Entitic vol]74.5 fLLow82.6 - 102.9 fLRIVERSIDE BEHAVIORAL HEALTH CENTER Morphology Walter (Bld) [Interp]MICROCYTOSIS PRESENTBON [facility] Morphology Walter (Bld) [Interp]1+ TARGET CELLSRIVERSIDE BEHAVIORAL HEALTH CENTERMorphology Walter (Bld) [Interp]1+ ACANTHOCYTESBON [facility]OUTHEASTERN MEDICAL CENTERPlatelet distribution width (Bld) [Ratio]17.3 %High11.8 - 14.4 %R[facility]ERS[facility] BEHAVIORAL HEALTH CENTERPlatelets (Bld) [#/Vol]See Reflexed IPF ResultBON [facility]IO[facility]ALTH SOUTHEASTERN MEDICAL CENTERRBC (Bld) [#/Vol] 4.91 10*6/uL4.21 - 5.77 m/uLRIVERSIDE BEHAVIORAL HEALTH CENTERSegmented neutrophils/100 WBC (Bld)75 %High36 - 66 %R[facility]ERSIDE BEHAVIORAL HEALTH CENTERWBC (Bld) [#/Vol]11.1 10*3/uL R[facility] HEALTH CENTERMagnesiumon [id number] [Mass/Vol]1.5 mg/dLLow 1.6-2.6[facility] HospitalComment on above:Performed By: #### CDP #### [facility] [address] [id number] Fine Craft Artist: Maggie Brandon Panel Informationon [id number] Eos # 0.11BON SECMEMORIAL HEALTH SYSTEMAbsolute Immature Granulocyte0.00BON [facility] CENTERAbsolute Lymph #1.22BON SECMEMORIAL HEALTH SYSTEMAbsolute [place] #1.44HighINOVA ALEXANDRIA HOSPITAL HEALTHInterpretation and review of laboratory resultsAbnormalBON [facility]OUTHEASTERN MEDICAL CENTERNRBC Automated0.00.0 per 100 WBCBON [facility] SOUTHEASTERN MEDICAL CENTERSegs Absolute8.33HighBON SECTHEDACARE MEDICAL CENTER - BERLIN INCPlatelet, Pfqpwregowvp430SPN [facility] MED[facility] CENTERComment on above:ORDERED BY LABPlatelet, Immature Gwxnfoeo16.1 %1.1 - 10.3 %BON [facility] MEDICAL CENTERComment on above: ORDERED BY LABRIVERSIDE BEHAVIORAL HEALTH CENTERInterpretation and review of laboratory resultsAbnormalBON SECCHI ST[facility] HEALTHGFR >60>60 mL/minBON [facility]OUT[facility]ERN MEDICAL CENTERGFR Non->60>60 mL/minRIVERSIDE BEHAVIORAL HEALTH CENTERInterpretation and review of laboratory results AbnormalBON LEW[facility] CLARK SPECIALTY HOSPITALPLT, Immature Fract.on [id number], Fluoresc.230 k/wEZaioxa966-085UnhdnMercy Health Tiffin HospitalComment on above:Result Comment: ORDERED BY LABPerformed By: #### CDP #### [facility] Review Track[facility] [address] [place] [address] Fine Craft Artist: SUSANNAH Brandon, Immature Fract.10.1 %Normal1.1-10.3MLoma Linda University Children's HospitalComment on above:Result Comment: ORDERED BY LAB Performed By: #### CDP #### [facility] [address] [place], [place] [id number] Fine Craft Artist: Eliane Brandonsphokhari, Inorg.on 83-45-7719Xvocxyrpjx, Inorg.2.3 mg/dLLow2.5-4.5[facility] Tiffin HospitalComment on above: Performed By: #### CDP, MELVIN, BMPX, MG, IPF #### [facility] Review [facility] [address] [place] [address] Fine Craft Artist: Rubina Brandon Metab w/rfx MGon 01-06-2022(cont.)Normal [facility] Tiffin HospitalComment on above:Result Comment: Average GFR for 70 or more years old: 75 mL/min/1.73sq m Chronic Kidney Disease: <60 mL/min/1.73sq m Kidney failure: <15 mL/min/1.73sq m eGFR calculated using average adult body mass. Additional eGFR calculator available at: http://www.[employer].LawyerPaid/multiple_crcl_2012.htmPerformed By: #### CDP, MELVIN, BMPX, IPF #### [employer] [facility] [address] [place] [address] Fine Craft Artist: Francisco J Fonseca MDAnion gap [Moles/Vol]11 mmol/LNormal9-17[facility] Tiffin HospitalComment on above:Performed By: #### CDP, MELVIN, BMPX, IPF #### [facility] [address] [place] [address] Fine Craft Artist: Francisco J Fonseca MDCalcium [Mass/Vol]7.7 mg/dLLow8.6-10.4[facility] Tiffin HospitalComment on above:Performed By: #### CDP, MELVIN, BMPX, IPF #### [facility] [address] [place] [address] Fine Craft Artist: Francisco J Fonseca MDChloride [Moles/Vol]99 mmol/BEwmdzu54-380QiewtMercy Health Tiffin HospitalComment on above:Performed By: #### CDP, MELVIN, BMPX, IPF #### [facility] [address] [place] [address] Fine Craft Artist: Francisco J Fonseca MDCO2 [Moles/Vol]23 mmol/LOainis41-07KhfrtMercy Health Tiffin HospitalComment on above:Performed By: #### CDP, MELVIN, BMPX, IPF #### [employer] [facility] [address] [place] [address] Fine Craft Artist: Francisco J Fonseca MDCreatinine [Mass/Vol]0.50 mg/dLLow0.70-1.20[facility] HospitalComment on above:Performed By: #### CDP, MELVIN, BMPX, IPF #### [facility] [address] [place] [address] Fine Craft Artist: Francisco J Fonseca MDGFR, Amer>60Normal>60[facility] HospitalComment on above:Performed By: #### CDP, MELVIN, BMPX, IPF #### [facility] [address] [place] [address] Fine Craft Artist: Francisco J Fonseca MDGFR,non Amer>60Normal>60MerSutter Delta Medical CenterComment on above:Performed By: #### CDP, MELVIN, BMPX, IPF #### [facility] [address] [place] [address] Fine Craft Artist: Francisco J Fonseca MDGlucose [Mass/Vol]149 mg/oCCxhw79-15QlfvqLoma Linda University Children's HospitalComment on above:Performed By: #### CDP, MELVIN, BMPX, IPF #### [facility] [address] [place] [address] Fine Craft Artist: DENISE Brandonotassium [Moles/Vol]3.6 mmol/LLow3.7-5.3MLoma Linda University Children's HospitalComment on above:Performed By: #### CDP, MELVIN, BMPX, IPF #### [facility] [address] [place] [address] Fine Craft Artist: MEIR Brandonodium [Moles/Vol]133 mmol/MEym309-848DlcyiMercy Health Tiffin HospitalComment on above:Performed By: #### CDP, MELVIN, BMPX, IPF #### [facility] [address] [place] [address] Fine Craft Artist: Francisco J Fonseca MDUrea nitrogen [Mass/Vol]11 mg/dLNormal8-23MerSutter Delta Medical CenterComment on above:Performed By: #### CDP, MELVIN, BMPX, IPF #### [facility] [address] [place] [address] Fine Craft Artist: KRISTOFER Brandon with Diffon [id number]. Basophil0.03 k/uL Normal0.00-0.20[facility] Tiff[facility] HospitalComment on above:Performed By: #### CDP, MELVIN, BMPX, IPF #### [facility] [address] [place] [address] Fine Craft Artist: Vidhya Brandon.Imm.Granulocyte0.05 k/uLNormal0.00-0.30[facility] HospitalComment on above:Performed By: #### CDP, MELVIN, BMPX, IPF #### [employer] [facility] [address] [place] [address] Fine Craft Artist: Vidhya Brandon.Neutrophil (Seg)11.21 k/uLHigh1.50-8.10[facility] HospitalComment on above:Performed By: #### CDP, MELVIN, BMPX, IPF #### [employer] [facility] [address] [place] [address] Fine Craft Artist: Francisco J Fonseca MDBasophils/100 WBC (Bld)0 %Normal0-2MLoma Linda University Children's HospitalComment on above:Performed By: #### CDP, MELVIN, BMPX, IPF #### [employer] [facility] [address] [place] [address] Fine Craft Artist: Francisco J Fonseca MDEosinophils (Bld) [#/Vol]0.09 10*3/uLNormal 0.00-0.44[facility] HospitalComment on above:Performed By: #### CDP, MELVIN, BMPX, IPF #### [employer] [facility] [address] [place] [address] Fine Craft Artist: MAXIM Brandonosinophils/100 WBC (Bld)1 %Normal1-4[facility] HospitalComment on above:Performed By: #### CDP, MELVIN, BMPX, IPF #### [address] [address] Fine Craft Artist: Francisco J Fonseca MDErythrocyte distribution width (RBC) [Ratio]18.4 %High11.8-14.4[facility] HospitalComment on above:Performed By: #### CDP, MELVIN, BMPX, IPF #### [place] [address] Fine Craft Artist: Francisco J Fonseca MDHematocrit (Bld) [Volume fraction]38.2 %Low 40.7-50.3Mparkwood hospitaly [facility] Faith HospitalComment on above:Performed By: #### CDP, MELVIN, BMPX, IPF #### [place] [address] Fine Craft Artist: Francisco J Fonseca MDHemoglobin (Bld) [Mass/Vol]13.2 g/dLNormal 13.0-17.0[facility] HospitalComment on above:Performed By: #### CDP, MELVIN, BMPX, IPF #### [place] [address] Fine Craft Artist: Francisco J Fonseca MDImmature granulocytes/100 WBC (Bld)0 %Normal0 [facility]iff[facility] HospitalComment on above:Performed By: #### CDP, MELVIN, BMPX, IPF #### [place] [address] Fine Craft Artist: Francisco J Fonseca MDLymphocytes (Bld) [#/Vol]0.82 10*3/uLLow 1.10-3.70[facility] HospitalComment on above:Performed By: #### CDP, MELVIN, BMPX, IPF #### [place] [address] Fine Craft Artist: Jeremie Brandonmphocytes/100 WBC (Bld)6 %Sid43-14VxgguMercy Health Tiffin HospitalComment on above:Performed By: #### CDP, MELVIN, BMPX, IPF #### [facility] [address] [place] [address] Fine Craft Artist: MARK BrandonCH (RBC) [Entitic mass]26.7 csPifeaf82.2-33.5 [facility] HospitalComment on above:Performed By: #### CDP, MELVIN, BMPX, IPF #### [facility] [address] [place] [address] Fine Craft Artist: MARK BrandonCHC (RBC) [Mass/Vol]34.6 g/kVCjutrg35.4-34.8 [facility] HospitalComment on above:Performed By: #### CDP, MELVIN, BMPX, IPF #### [facility] Review Track[facility] [address] [place] [address] Fine Craft Artist: MARK BrandonCV (RBC) [Entitic vol]77.2 fLLow82.6-102.9[facility] HospitalComment on above:Performed By: #### CDP, MELVIN, BMPX, IPF #### [facility] Review Track[facility] [address] [place] [address] Fine Craft Artist: MARK Brandononocytes (Bld) [#/Vol]1.14 10*3/uLNormal 0.10-1.20[facility] HospitalComment on above:Performed By: #### CDP, MELVIN, BMPX, IPF #### [facility] Review Track[facility] [address] [place] [phone] Fine Craft Artist: MARK Brandononocytes/100 WBC (Bld)9 %Normal3-12[facility] HospitalComment on above:Performed By: #### CDP, MELVIN, BMPX, IPF #### [facility] Review Track[facility] [address] [place] [address] Fine Craft Artist: Francisco J Fonseca MDNeutrophil (Seg)84 %Dosk01-72CjrziMercy Health Tiffin HospitalComment on above:Performed By: #### CDP, MELVIN, BMPX, IPF #### [facility] Review Track[facility] [address] [place] [phone] Fine Craft Artist: Francisco J Fonseca MDNRDENISE Automated0.0 per 100 WBCNormal0.0[facility] Tiffin HospitalComment on above:Performed By: #### CDP, MELVIN, BMPX, IPF #### [address] [address] Fine Craft Artist: Isra Brandontelet CountSee Reflexed IPF ResultNormal 138-453Mer[facility] Tiffin HospitalComment on above:Performed By: #### CDP, MELVIN, BMPX, IPF #### [address] [address] Fine Craft Artist: LEIGH BrandonBC (Bld) [#/Vol]4.95 10*6/uLNormal4.21-5.77 [facility] HospitalComment on above:Performed By: #### CDP, MELVIN, BMPX, IPF #### [address] [address] Fine Craft Artist: YOLA Brandon morphology finding Nom (Bld)ANISOCYTOSIS PRESENTNormalMercy Health Tiffin HospitalComment on above:Result Comment: MICROCYTOSIS PRESENTPerformed By: #### CDP, MELVIN, BMPX, IPF #### [address] [address] Fine Craft Artist: ENRIQUE BrandonBC (Bld) [#/Vol]13.3 10*3/uLHigh3.5-11.3MLoma Linda University Children's HospitalComment on above:Performed By: #### CDP, MELVIN, BMPX, IPF #### [address] [address] Fine Craft Artist: Francisco J Fonseca MDLaboratory - Chemistry and Chemistry - challenge on 40-13-0908Xeihb gap [Moles/Vol]11 mmol/L9 - 17 mmol/LBON [facility] Calcium [Mass/Vol]7.7 mg/dLLow8.6 - 10.4 mg/dLBON [facility]OURS MERCY HEALTHChloride [Moles/Vol]99 mmol/L98 - 107 mmol/LBON [facility] MERCY HEALTHCO2 [Moles/Vol]23 mmol/L20 - 31 mmol/LBON [facility] HEALTHCreatinine [Mass/Vol]0.5 mg/dLLow 0.70 - 1.20 mg/dLBON SECOURS MERCY HEALTHGFR/1.73 sq M.predicted MDRD (S/P/Bld) [Vol rate/Area][facility] HOSPITALY HEALTHComment on above:Average GFR for 70 or more years old: 75 mL/min/1.73sq m Chronic Kidney Disease: <60 mL/min/1.73sq m Kidney failure: <15 mL/min/1.73sq m eGFR calculated using average adult body mass. Additional eGFR calculator available at: http://www.Orph[employer]/multiple_crcl_2012.htm Glucose [Mass/Vol]149 mg/dIWieh24 - 99 mg/dLBON SECOURS MERCY HEALTHPhosphate [Mass/Vol]2.5 mg/dL2.5 - 4.5 mg/dLB[facility] MERCY HEALTHPotassium [Moles/Vol] 3.6 mmol/LLow3.7 - 5.3 mmol/LBON SECOURS MERCY HEALTHSodium [Moles/Vol]133 mmol/FDxo178 - 144 mmol/LBON SECOURS MERCY HEALTHUrea nitrogen (BldV) [Mass/Vol] 11 mg/dL8 - 23 mg/dLBON SECOURS MERCY HEALTHLaboratory - Hematology and Cell countson 26-06-5074Wfcpaifvi (Bld) [#/Vol]0.03 10*3/uLBON SECOURS MERCY [facility]ALTH Basophils/100 WBC (Bld)0 %0 - 2 %[facility] MERCY HEALTHEosinophils/100 WBC (Bld)1 %1 - 4 %[facility] HEALTHHematocrit (Bld) [Volume fraction]38.2 % Low40.7 - 50.3 %[facility] HOSPITALY HEALTHHemoglobin (Bld) [Mass/Vol]13.2 g/dL13.0 - 17.0 g/dLBON SECOURS [facility] SUR[facility] HOSPITALY HEALTHImmature granulocytes/100 WBC (Bld)0 %0B[facility] MERCY HEALTHLymphocytes/100 WBC (Bld)6 %Low24 - 43 %BON SECMERCY HEALTH CLERMONT HOSPITALH (RBC) [Entitic mass]26.7 pg25.2 - 33.5 pgBON SECOURS [facility]PITALHC (RBC) [Mass/Vol]34.6 g/dL28.4 - 34.8 g/dLBON SECMERCY HEALTH CLERMONT HOSPITALV (RBC) [Entitic vol]77.2 fLLow82.6 - 102.9 fLBANNER REHABILITATION HOSPITAL WEST SECOCH[facility] HEALTHMonocytes/100 WBC (Bld)9 %3 - 12 %[facility] HEALTHPlatelet distribution width (Bld) [Ratio]18.4 %High11.8 - 14.4 %[facility] HEALTHPlatelets (Bld) [#/Vol]See Reflexed IPF ResultBON SECOURS [facility]Y HEALTHRBC (Bld) [#/Vol]4.95 10*6/uL4.21 - 5.77 m/uLBANNER REHABILITATION HOSPITAL WEST SECOCEAN [facility]ITALY HEALTHRBC (Bld) [#/Vol]ANISOCYTOSIS PRESENTINOVA [facility]LEX[facility] HEALTHComment on above:MICROCYTOSIS PRESENTSegmented neutrophils/100 WBC (Bld)84 %High36 - 65 %BON SECOCHSNER [facility]ALTHWBC (Bld) [#/Vol]13.3 10*3/uLHighBON SECOC[facility]OSPITALY HEALTHNo Panel Informationon 01-06-2022 Platelet, Wyvemmbnehca091IMW [facility]Y HEALTHPlatelet, Immature Gdjnzfyn65.1 %1.1 - 10.3 %[facility] HEALTHB[facility]Y HEALTHAbsolute Eos #0.09 [facility] HEALTHAbsolute Immature Granulocyte0.05[facility] HEALTHAbsolute Lymph #0.82LowBANNER REH[facility]ATION [facility]CY HEALTHAbsolute [place] #1.14[facility]Y HEALTHInterpretation and review of laboratory resultsAbnormalBON [facility]ITALY HEALTHNRBC Automated0.00.0 per 100 WBCBANNER REHABILITATION [facility]OSPITAL WE[facility] SEC[facility] MERCY HEALTHSegs Hpkkioph90.21HighBON [facility]Y HEALTHBON [facility]TH HEALTHGFR >60>60 mL/minBON [facility]OUTH HEALTHGFR Non->60>60 mL/minBON [facility]OC[facility]ITALY HEALTHInterpretation and review of laboratory results AbnormalBON SECOURS [facility]ACHWOODBON [facility] SOUTH HEALTHPLT, Immature Fract.on 13-80-9856Ylnvuskv, Fluoresc.252 k/iECamoey323-269HcllxMercy Health Tiffin HospitalComment on above:Performed By: #### CDP, MELVIN, BMPX, IPF #### [facility] [address] [place] [address] Fine Craft Artist: SUSANNAH Brandon, Immature Fract.10.1 %Normal1.1-10.3MLoma Linda University Children's HospitalComment on above:Performed By: #### CDP, MELVIN, BMPX, IPF #### [facility] [address] [place] [address] Fine Craft Artist: DENISE Brandonhosphorus, Inorg.on 36-19-3657Knzhwnfhor, Inorg.2.5 mg/dLNormal2.5-4.5Mercy Health Tiffin HospitalComment on above: Performed By: #### CDP, MELVIN, BMPX, IPF #### [facility] [address] [place] [address] Fine Craft Artist: Ej Brandonc Metab w/rfx MGon 84-07-3510Rjkvtycsi [Moles/Vol]3.4 mmol/LLow3.7-5.3MLoma Linda University Children's HospitalComment on above: Performed By: #### CDP, MELVIN, BMPX, IPF #### [facility] [address] [place] [phone] Fine Craft Artist: Francisco J Fonseca MDUrea nitrogen [Mass/Vol]14 mg/dLNormal8-23Mer[facility] Health Tiffin HospitalComment on above:Performed By: #### CDP, MELVIN, BMPX, IPF #### [facility] [address] [place] [phone] Fine Craft Artist: Francisco J Fonseca MDAnion gap [Moles/Vol]12 mmol/LNormal9-17[facility] HEALTHComment on above:Performed By: #### CDP, MELVIN, BMPX, IPF #### [facility] [address] [place] [address] Fine Craft Artist: Francisco J Fonseca MDCalcium [Mass/Vol]8.1 mg/dLLow8.6-10.4[facility] S[facility]TH HEALTHComment on above:Performed By: #### CDP, MELVIN, BMPX, IPF #### [facility] [address] [place] [address] Fine Craft Artist: Francisco J Fonseca MDChloride [Moles/Vol]98 mmol/NIiaglo41-798XHG [facility]TH HEALTHComment on above:Performed By: #### CDP, MELVIN, BMPX, IPF #### [facility] [address] [place] [address] Fine Craft Artist: Francisco J Fonseca MDCO2 [Moles/Vol]24 mmol/PDtinkk12-43QNG [facility]TH HEALTHComment on above:Performed By: #### CDP, MELVIN, BMPX, IPF #### [facility] [address] [place] [address] Fine Craft Artist: MARLENY Brandonreatinine [Mass/Vol]0.54 mg/dLLow0.70-1.20[facility] S[facility]TH HEALTHComment on above:Performed By: #### CDP, MELVIN, BMPX, IPF #### [facility] [address] [place] [address] 119[address] Fine Craft Artist: Francisco J Fonseca MDGlucose [Mass/Vol]122 mg/vENapq58-96KMI [facility]TH HEALTHComment on above:Performed By: #### CDP, MELVIN, BMPX, IPF #### [facility] [address] [place] [phone] Fine Craft Artist: Francisco J Fonseca MDSodium [Moles/Vol]134 mmol/TBig125-814LFQ [facility] MEDICAL CENTERComment on above:Performed By: #### CDP, MELVIN, BMPX, IPF #### [facility] [address] [place] [address] Fine Craft Artist: Francisco J Fonseca MD(cont.)[facility] Comment on above:Result Comment: Average GFR for 70 or more years old: 75 mL/min/1.73sq m Chronic Kidney Disease: <60 mL/min/1.73sq m Kidney failure: <15 mL/min/1.73sq m eGFR calculated using average adult body mass. Additional eGFR calculator available at: http://www.Orphazyme/multiple_crcl_2012.htmPerformed By: #### CDP, MELVIN, BMPX, IPF #### [address] [address] Fine Craft Artist: Francisco J Fonseca MDAnion gap [Moles/Vol]11 mmol/LNormal9-17Mer[facility] Health Tiffin HospitalComment on above:Performed By: #### CDP, MELVIN, BMPX, IPF #### [facility] [address] [place] [phone] Fine Craft Artist: MARLENY Brandonalcium [Mass/Vol]9.1 mg/dLNormal8.6-10.4Mer[facility] Health Tiffin HospitalComment on above:Performed By: #### CDP, MELVIN, BMPX, IPF #### [facility] [address] [place] [phone] Fine Craft Artist: Francisco J Fonseca MDChloride [Moles/Vol]99 mmol/WIppuht52-470BrwqgMercy Health Tiffin HospitalComment on above:Performed By: #### CDP, MELVIN, BMPX, IPF #### [facility] [address] [place] [address] Fine Craft Artist: Francisco J Madoff, MDCO2 [Moles/Vol]25 mmol/AWaesvg48-12QlxwuMercy Health Tiffin HospitalComment on above:Performed By: #### CDP, MELVIN, BMPX, IPF #### [facility] [address] [place] [address] Fine Craft Artist: Francisco J Fonseca MDCreatinine [Mass/Vol]0.57 mg/dLLow0.70-1.20Mer[facility] Tiffin HospitalComment on above:Performed By: #### CDP, MELVIN, BMPX, IPF #### [facility] [address] [place] [address] Fine Craft Artist: Francisco J Fonseca MDGFR, Amer>60Normal>60Mer[facility] Health Tiffin HospitalComment on above:Performed By: #### CDP, MELVIN, BMPX, IPF #### [facility] [address] [place] [address] Fine Craft Artist: ARTURO Brandon,non Amer>60Normal>60[facility] Tiffin HospitalComment on above:Performed By: #### CDP, MELVIN, BMPX, IPF #### [facility] [address] [place] [address] Fine Craft Artist: Francisco J Fonseca MDGlucose [Mass/Vol]129 mg/rEWgiq36-91Csyvl [facility] Faith HospitalComment on above:Performed By: #### CDP, MELVIN, BMPX, IPF #### [facility] [address] [place] [address] Fine Craft Artist: Francisco J Fonseca MDPotassium [Moles/Vol]3.5 mmol/LLow3.7-5.3Mparkwood hospitaly [facility] HospitalComment on above:Performed By: #### CDP, MELVIN, BMPX, IPF #### [facility] [address] [place] [address] 45[address] Fine Craft Artist: MEIR Brandonodium [Moles/Vol]135 mmol/CAbhnih405-112YagqkMercy Health Tiffin HospitalComment on above:Performed By: #### CDP, MELVIN, BMPX, IPF #### [facility] [address] [place] [address] Fine Craft Artist: Francisco J Fonseca MDUrea nitrogen [Mass/Vol]15 mg/dLNormal8-23Mer[facility] Health Tiffin HospitalComment on above:Performed By: #### CDP, MELVIN, BMPX, IPF #### [facility] [address] [place] [address] Fine Craft Artist: Francisco J Fonseca MD(cont.)[facility] Comment on above:Result Comment: Average GFR for 70 or more years old: 75 mL/min/1.73sq m Chronic Kidney Disease: <60 mL/min/1.73sq m Kidney failure: <15 mL/min/1.73sq m eGFR calculated using average adult body mass. Additional eGFR calculator available at: http://www.[employer].LawyerPaid/multiple_crcl_2012.htmPerformed By: #### CDP, MELVIN, BMPX, IPF #### [place] [address] Fine Craft Artist: Francisco J Fonseca MDAnion gap [Moles/Vol]15 mmol/LNormal9-17Mer[facility] Tiffin HospitalComment on above:Performed By: #### CDP, MELVIN, BMPX, IPF #### [facility] [address] [place] [address] Fine Craft Artist: Francisco J Fonseca, MDCalcium [Mass/Vol]8.2 mg/dLLow8.6-10.4Mer[facility] Tiffin HospitalComment on above:Performed By: #### CDP, MELVIN, BMPX, IPF #### [facility] [address] [place] [address] Fine Craft Artist: Francisco J Fonseca MDChloride [Moles/Vol]98 mmol/PDzmtyu08-636QmyzbMercy Health Tiffin HospitalComment on above:Performed By: #### CDP, MELVIN, BMPX, IPF #### [facility] [address] [place] [phone] Fine Craft Artist: Francisco J Fonseca MDCO2 [Moles/Vol]23 mmol/UDuzjol37-85ItnmjMercy Health Tiffin HospitalComment on above:Performed By: #### CDP, MELVIN, BMPX, IPF #### [facility] [address] [place] [address] 61854 Fine Craft Artist: MARLENY Brandonreatinine [Mass/Vol]0.66 mg/dLLow0.70-1.20Mer[facility] Tiffin HospitalComment on above:Performed By: #### CDP, MELVIN, BMPX, IPF #### [facility] [address] [place] [address] [phone] Fine Craft Artist: Francisco J Fonseca MDGFR, Amer>60Normal>60Mer[facility] Tiffin HospitalComment on above:Performed By: #### CDP, MELVIN, BMPX, IPF #### [facility] [address] [place] [phone] Fine Craft Artist: Francisco J Fonseca MDGFR,non Amer>60Normal>60[facility] Tiffin HospitalComment on above:Performed By: #### CDP, MELVIN, BMPX, IPF #### [facility] [address] [place] [address] [phone] Fine Craft Artist: Francisco J Fonseca MDGlucose [Mass/Vol]90 mg/vRUsilre07-63BogvwLoma Linda University Children's HospitalComment on above:Performed By: #### CDP, MELVIN, BMPX, IPF #### [facility] [address] [place] [address] 51270 Fine Craft Artist: Francisco J Fonseca MDPotassium [Moles/Vol]3.7 mmol/LNormal3.7-5.3 [facility] Tiff[facility] HospitalComment on above:Performed By: #### CDP, MELVIN, BMPX, IPF #### [facility] [address] [place] [address] Fine Craft Artist: MEIR Brandonodium [Moles/Vol]136 mmol/OCfbmzv929-446NmflbMercy Health Tiffin HospitalComment on above:Performed By: #### CDP, MELVIN, BMPX, IPF #### [address] [address] Fine Craft Artist: Francisco J Fonseca MDUrea nitrogen [Mass/Vol]20 mg/dLNormal8-23Mer[facility] Tiffin HospitalComment on above:Performed By: #### CDP, MELVIN, BMPX, IPF #### [address] [address] Fine Craft Artist: MARLENY Brandon with Diffon 49-12-4512Lcu. Basophil0.04 k/uL Normal0.00-0.20[facility] Tiffin HospitalComment on above:Performed By: #### CDP, MELVIN, BMPX, IPF #### [facility] [address] [place] [phone] Fine Craft Artist: MDAbs. RomaImm.Granulocyte0.08 k/uLNormal0.00-0.30[facility] Tiffin HospitalComment on above:Performed By: #### CDP, MELVIN, BMPX, IPF #### [facility] [address] [place] [address] [phone] Fine Craft Artist: Vidhya Brandon.Neutrophil (Seg)14.26 k/uLHigh1.50-8.10Mer[facility] Tiffin HospitalComment on above:Performed By: #### CDP, MELVIN, BMPX, IPF #### [facility] [address] [place] [address] [phone] Fine Craft Artist: Francisco J Fonseca MDBasophils/100 WBC (Bld)0 %Normal0-2MLoma Linda University Children's HospitalComment on above:Performed By: #### CDP, MELVIN, BMPX, IPF #### [facility] [address] [place] [address] [phone] Fine Craft Artist: Francisco J Fonseca MDEosinophils (Bld) [#/Vol]0.11 10*3/uLNormal 0.00-0.44Mer[facility] Tiffin HospitalComment on above:Performed By: #### CDP, MELVIN, BMPX, IPF #### [facility] [address] [place] [phone] Fine Craft Artist: MAXIM Brandonosinophils/100 WBC (Bld)1 %Normal1-4Mer[facility] Tiffin HospitalComment on above:Performed By: #### CDP, MELVIN, BMPX, IPF #### [facility] [address] [place] [phone] Fine Craft Artist: Francisco J Fonseca MDImmature granulocytes/100 WBC (Bld)1 %Tkeq1CqzesMercy Health Tiffin HospitalComment on above:Performed By: #### CDP, MELVIN, BMPX, IPF #### [facility] [address] [place] [address] Fine Craft Artist: Jeremie Brandonmphocytes (Bld) [#/Vol]0.96 10*3/uLLow 1.10-3.70Mer[facility] Tiffin HospitalComment on above:Performed By: #### CDP, MELVIN, BMPX, IPF #### [facility] [address] [place] [address] 11178 Fine Craft Artist: Jeremie Brandonmphocytes/100 WBC (Bld)6 %Uln83-94GnchjMercy Health Tiffin HospitalComment on above:Performed By: #### CDP, MELVIN, BMPX, IPF #### [facility] [address] [place] [address] 398[address] Fine Craft Artist: MARK Brandononocytes (Bld) [#/Vol]0.97 10*3/uLNormal 0.10-1.20Mer[facility] Tiffin HospitalComment on above:Performed By: #### CDP, MELVIN, BMPX, IPF #### [facility] [address] [place] [address] 86228 Fine Craft Artist: MARK Brandononocytes/100 WBC (Bld)6 %Normal3-12Mer[facility] Tiffin HospitalComment on above:Performed By: #### CDP, MELVIN, BMPX, IPF #### [facility] [address] [place] [address] Fine Craft Artist: Francisco J Fonseca MDNeutrophil (Seg)87 %Tnih64-17ViuarMercy Health Tiffin HospitalComment on above:Performed By: #### CDP, MELVIN, BMPX, IPF #### [facility] [address] [place] [address] Fine Craft Artist: Francisco J Fonseca MDErythrocyte distribution width (RBC) [Ratio]18.6 %High11.8-14.4Mer[facility] Tiffin HospitalComment on above:Performed By: #### CDP, MELVIN, BMPX, IPF #### [facility] [address] [place] [phone] Fine Craft Artist: Francisco J Fonseca MDHematocrit (Bld) [Volume fraction]38.9 %Low 40.7-50.3Mparkwood hospitaly [facility] Faith HospitalComment on above:Performed By: #### CDP, MELVIN, BMPX, IPF #### [facility] [address] [place] [address] Fine Craft Artist: Francisco J Fonseca MDHemoglobin (Bld) [Mass/Vol]13.5 g/dLNormal 13.0-17.0Mer[facility] Tiffin HospitalComment on above:Performed By: #### CDP, MELVIN, BMPX, IPF #### [facility] [address] [place] [address] [phone] Fine Craft Artist: MARK BrandonCH (RBC) [Entitic mass]26.8 uoUgtqmq87.2-33.5 [facility] Tiff[facility] HospitalComment on above:Performed By: #### CDP, MELVIN, BMPX, IPF #### [address] [address] Fine Craft Artist: MARK BrandonCHC (RBC) [Mass/Vol]34.7 g/wZFouyws84.4-34.8 [facility] HospitalComment on above:Performed By: #### CDP, MELVIN, BMPX, IPF #### [facility] [address] [place] [address]97 Fine Craft Artist: MARK BrandonCV (RBC) [Entitic vol]77.3 fLLow82.6-102.9Mer[facility] Tiffin HospitalComment on above:Performed By: #### CDP, MELVIN, BMPX, IPF #### [address] [address] Fine Craft Artist: Francisco J Fonseca MDNRBC Automated0.0 per 100 WBCNormal0.0Mer[facility] Health Tiffin HospitalComment on above:Performed By: #### CDP, MELVIN, BMPX, IPF #### [facility] [address] [place] [address] Fine Craft Artist: DENISE Brandonlatelet CountSee Reflexed IPF ResultNormal 138-453Mer[facility] Health Tiffin HospitalComment on above:Performed By: #### CDP, MELVIN, BMPX, IPF #### [facility] [address] [place] [address] [phone] Fine Craft Artist: LEIGH BrandonBC (Bld) [#/Vol]5.03 10*6/uLNormal4.21-5.77 [facility]iff[facility] HospitalComment on above:Performed By: #### CDP, MELVIN, BMPX, IPF #### [facility] [address] [place] [address] [phone] Fine Craft Artist: Francisco J Madoff, MDRBC morphology finding Nom (Bld)ANISOCYTOSIS PRESENTNormalMerSutter Delta Medical CenterComment on above:Result Comment: MICROCYTOSIS PRESENTPerformed By: #### CDP, MELVIN, BMPX, IPF #### [facility] [address] [place], [place] [phone] Fine Craft Artist: Francisco J Fonseca MDWBC (Bld) [#/Vol]16.4 10*3/uLHigh3.5-11.3Mercy [facility] HospitalComment on above:Performed By: #### CDP, MELVIN, BMPX, IPF #### [facility] [address] [place], [place] [phone] Fine Craft Artist: Francisco J Fonseca MDFL UGIon [id number] UGIEXAMINATION: SINGLE CONTRAST UPPER GI SERIES 01/05/2022 HISTORY: ORDERING SYSTEM PROVIDED HISTORY: repair perf ulcer TECHNOLOGIST PROVIDED HISTORY: repair perf ulcer COMPARISON: None. TECHNIQUE: Multiple single contrast images of the esophagus, gastroesophageal junction and stomach were obtained following the oral administration of water soluble contrast. FLUOROSCOPY DOSE AND TYPE OR TIME AND EXPOSURES: DAP 16.983Ckej9 FINDINGS: Contrast was administered through the indwelling [...] Signed by: Howard Aldridge MD 01/05/22 Final resultNormalMercy Health Tiffin HospitalLaboratory - Chemistry and Chemistry - challengeon [id number] [Mass/Vol]1.4 mg/dLLow1.6 - 2.6 mg/dLBON OHIOHEALTH SOUTHEASTERN MEDICAL CENTERGFR/1.73 sq M.predicted MDRD (S/P/Bld) [Vol rate/Area]BON [facility]OUT[facility]ASTERN MEDICAL CENTERComment on above:Average GFR for 70 or more years old: 75 mL/min/1.73sq m Chronic Kidney Disease: <60 mL/min/1.73sq m Kidney failure: <15 mL/min/1.73sq m eGFR calculated using average adult body mass. Additional eGFR calculator available at: http://www.Orphazyme/multiple_crcl_2012.htm Potassium [Moles/Vol]3.4 mmol/LLow3.7 - 5.3 mmol/LBON SECOURS [facility]IO VALLEY SURGICAL HOSPITALY HEALTHUrea nitrogen (BldV) [Mass/Vol]14 mg/dL8 - 23 mg/dLBON SECOURS MERCY HEALTHPhosphate [Mass/Vol]2.4 mg/dLLow2.5 - 4.5 mg/dLBON SECOURS MERCY HEALTHMagnesium [Mass/Vol]1.5 mg/dLLow1.6 - 2.6 mg/dLBON [facility]RS MERCY HEALTHAnion gap [Moles/Vol]11 mmol/L9 - 17 mmol/LBON SECOURS MERCY HEALTHCalcium [Mass/Vol]9.1 mg/dL8.6 - 10.4 mg/dLBON [facility]RS MERCY HEALTHChloride [Moles/Vol]99 mmol/L98 - 107 mmol/LBON SECOURS [facility] VALLEY SURGICAL HOSPITALY HEALTHCO2 [Moles/Vol]25 mmol/L20 - 31 mmol/LBON SECOURS MERCY HEALTHCreatinine [Mass/Vol]0.57 mg/dLLow0.70 - 1.20 mg/dLBON SECOURS [facility] SURGICAL HOSPITALY HEALTHGFR/1.73 sq M.predicted MDRD (S/P/Bld) [Vol rate/Area]BON [facility]OUTHEASTERN MEDICAL CENTERComment on above:Average GFR for 70 or more years old: 75 mL/min/1.73sq m Chronic Kidney Disease: <60 mL/min/1.73sq m Kidney failure: <15 mL/min/1.73sq m eGFR calculated using average adult body mass. Additional eGFR calculator available at: http://www.Orph[employer]yme/multiple_crcl_2012.htm Glucose [Mass/Vol]129 mg/bQOjgi85 - 99 mg/dLBON SECOURS MERCY HEALTHPhosphate [Mass/Vol]2.4 mg/dLLow2.5 - 4.5 mg/dLBON [facility]RS MERCY HEALTHPotassium [Moles/Vol]3.5 mmol/LLow3.7 - 5.3 mmol/LBON SECOURS MERCY HEALTHSodium [Moles/Vol]135 mmol/L135 - 144 mmol/LBON [facility]ALTH SOUTHEASTERN MEDICAL CENTERUrea nitrogen (BldV) [Mass/Vol]15 mg/dL8 - 23 mg/dLBON OHIO[facility] SOUTHEASTERN MEDICAL CENTERLaboratory - Hematology and Cell countson [id number] (Bld) [#/Vol]0.04 10*3/uLBON OH[facility]ALTH SOUTHEASTERN MEDICAL CENTERBasophils/100 WBC (Bld)0 %0 - 2 %[facility] Eosinophils/100 WBC (Bld)1 %1 - 4 %[facility] HEALTH CENTERHematocrit (Bld) [Volume fraction]38.9 %Low40.7 - 50.3 %[facility] HEALTH CENTERHemoglobin (Bld) [Mass/Vol]13.5 g/dL13.0 - 17.0 g/dLBON [facility]OUTHEASTERN MEDICAL CENTERImmature granulocytes/100 WBC (Bld)1 %Ukbk8OCZ [facility]ASTERN MEDICAL CENTERLymphocytes/100 WBC (Bld)6 %Low24 - 43 %[facility]ALTHH (RBC) [Entitic mass]26.8 pg25.2 - 33.5 pgBON MEMORIAL [facility] SYSTEM SELBY GENERAL HOSPITALHC (RBC) [Mass/Vol]34.7 g/dL28.4 - 34.8 g/dL [facility]ALTHV (RBC) [Entitic vol]77.3 fLLow82.6 - 102.9 fLRIVERSIDE BEHAVIORAL HEALTH CENTERMonocytes/100 WBC (Bld)6 %3 - 12 %[facility] Platelet distribution width (Bld) [Ratio]18.6 %High11.8 - 14.4 %[facility] HEALTH CENTERPlatelets (Bld) [#/Vol]See Reflexed IPF ResultBON OHIOHEALTH SOUTHEASTERN MEDICAL CENTERRBC (Bld) [#/Vol]5.03 10*6/uL4.21 - 5.77 m/uLRIVERSIDE BEHAVIORAL HEALTH CENTERRBC (Bld) [#/Vol]ANISOCYTOSIS PRESENTRIVERSIDE BEHAVIORAL HEALTH CENTERComment on above: MICROCYTOSIS PRESENTSegmented neutrophils/100 WBC (Bld)87 %High36 - 65 %R[facility]HAVIORAL HEALTH CENTERWBC (Bld) [#/Vol]16.4 10*3/uLSt. Francis HospitalBON [facility] Magnesiumon [id number] [Mass/Vol]1.4 mg/dLLow1.6-2.6Mercy [facility] HospitalComment on above:Performed By: #### CDP, MELVIN, BMPX, IPF #### [facility] [address] [place] [address] Fine Craft Artist: Francisco J Fonseca MDMagnesium [Mass/Vol]1.5 mg/dLLow1.6-2.6Mercy [facility] HospitalComment on above:Performed By: #### CDP, MELVIN, BMPX, IPF #### [facility] [address] [place] [address] Fine Craft Artist: Francisco J Fonseca MDHaywood Regional Medical Center Informationon . No evidence for contrast leakage from the stomach or duodenum following repair of perforated ulcer. 2. Gastroesophageal reflux. [facility] CONSOLIDATEDEXAMINATION: SINGLE CONTRAST UPPER GI SERIES 01/05/2022 HISTORY: ORDERING SYSTEM PROVIDED HISTORY: repair perf ulcer TECHNOLOGIST PROVIDED HISTORY: repair perf ulcer COMPARISON: None. TECHNIQUE: Multiple single contrast images of the esophagus, gastroesophageal junction and stomach were obtained following the oral administration of water soluble contrast. FLUOROSCOPY DOSE AND TYPE OR TIME AND EXPOSURES: DAP 16.400Rbhv3 FINDINGS: Contrast was administered through the indwelling NG tube. No extravasation of contrast from the stomach. There is normal filling of stomach and proximal small bowel loops. There was some reflux into the biliary tree. Gastroesophageal reflux is noted. [facility] Howard Castorena MD - 01/05/2022 EXAMINATION: SINGLE CONTRAST UPPER GI SERIES 01/05/2022 HISTORY: ORDERING SYSTEM PROVIDED HISTORY: repair perf ulcer TECHNOLOGIST PROVIDED HISTORY: repair perf ulcer COMPARISON: None. TECHNIQUE: Multiple single contrast images of the esophagus, gastroesophageal junction and stomach were obtained following the oral administration of water soluble contrast. FLUOROSCOPY DOSE AND TYPE OR TIME AND EXPOSURES: DAP 16.388Xewt5 FINDINGS: Contrast was administered through the indwelling NG tube. No extravasation of contrast from the stomach. There is normal filling of stomach and proximal small bowel loops. There was some reflux into the biliary tree. Gastroesophageal reflux is noted. IMPRESSION: 1. No evidence for contrast leakage from the stomach or duodenum following repair of perforated ulcer. 2. Gastroesophageal reflux. [employer] Work Phone: radiology Study observation (narrative)[employer] Work Phone: Interpretation and review of laboratory results AbnormalBON SECOURS MERCY HEALTHBON SECOU[facility] MERCY HEALTHGFR >60 >60 mL/minBON SECOURS MERCY HEALTHGFR Non->60>60 mL/minBON SECOURS MERCY HEALTHInterpretation and review of laboratory resultsAbnormalBON SECOURS MERCY HEALTHBON SEC[facility] MERCY HEALTHInterpretation and review of laboratory resultsAbnormalBON SECOURS [facility]OS[facility]ITALY HEALTHBON SECOURS MascotaNubeY HEALTH Interpretation and review of laboratory resultsAbnormalBON SECECS Tuning HEALTH Platelet, Xplexxuzjtyx211WDH SECOURS MascotaNubeY HEALTHPlatelet, Immature Brzbmqhq46.5 %High1.1 - 10.3 %BON SECPingTuneY HEALTHBON SECOURS MERCY HEALTHAbsolute Eos # 0.11B[facility] HEALTHAbsolute Immature Granulocyte0.08B[facility] HEALTHAbsolute Lymph #0.96LowBON SECOURS MERCY HEALTHAbsolute [place] #0.97B[facility] HEALTHInterpretation and review of laboratory resultsAbnormalBON SECOURS MascotaNubeY HEALTHNRBC Automated0.00.0 per 100 WBCBON SECOURS MascotaNubeY HEALTHSegs Lftosiaz59.26HighBON SECOURS [facility] SUR[facility]ICAL HOSPITALY HEALTHBAN[facility] MERCY HEALTHInterpretation and review of laboratory resultsAbnormalBON SECOURS OHIO [facility] HEALTHGFR >60>60 mL/minB[facility] SECOU[facility] MERCY HEALTHGFR Non- >60>60 mL/minBON [facility]OURS MERCY HEALTHInterpretation and review of laboratory resultsAbnormalBON SECOU[facility] HEALTHB[facility] MascotaNubeY HEALTHNo Panel InformationOrdered By: Howard Aldridge on [id number] [employer] Work Phone: PLT, Immature Fract.on [id number], Fluoresc. 250 k/iEKednzf769-322Idajk[address] [place], [place] [address]Comment on above:Performed By: #### CDP, MELVIN, BMPX, IPF #### [facility] [address] [place] [address] Fine Craft Artist: SUSANNAH Brandon Immature Fract.10.5 %High1.1-10.3[facility] Faith HospitalComment on above:Performed By: #### CDP, MELVIN, BMPX, IPF #### [facility] [address] [place] [address] Fine Craft Artist: Brandon Brandonhokhari Inorg.on 75-64-3953Yfiixobzhi, Inorg.2.4 mg/dLLow2.5-4.5[facility] Tiffin HospitalComment on above: Performed By: #### CDP, MELVIN, BMPX, IPF #### [facility] [address] [place] [address] Fine Craft Artist: Mckayla Brandon Inorg.1.9 mg/dLLow2.5-4.5[facility] Tiffin HospitalComment on above:Performed By: #### CDP, MELVIN, BMPX, IPF #### [facility] [address] [place] [phone] Fine Craft Artist: Rubina Brandon Metab w/rfx MGon [id number] [Moles/Vol]3.4 mmol/LLow3.7-5.3Mparkwood hospitaly [facility] HospitalComment on above: Performed By: #### CDP, MELVIN, BMPX, IPF #### [facility] [address] [place] [address] Fine Craft Artist: Francisco J Fonseca MD(cont.)[facility] Comment on above:Result Comment: Average GFR for 70 or more years old: 75 mL/min/1.73sq m Chronic Kidney Disease: <60 mL/min/1.73sq m Kidney failure: <15 mL/min/1.73sq m eGFR calculated using average adult body mass. Additional eGFR calculator available at: http://www.[employer].com/multiple_crcl_2012.htmPerformed By: #### CDP, MELVIN, BMPX, IPF #### [facility] [address] [place] [address] Fine Craft Artist: Francisco J Fonseca MDAnion gap [Moles/Vol]12 mmol/LNormal9-17[facility] Tiffin HospitalComment on above:Performed By: #### CDP, MELVIN, BMPX, IPF #### [facility] [address] [place] [address] Fine Craft Artist: Francisco J Fonseca MDCalcium [Mass/Vol]8.1 mg/dLLow8.6-10.4[facility] Tiffin HospitalComment on above:Performed By: #### CDP, MELVIN, BMPX, IPF #### [facility] [address] [place] [address] Fine Craft Artist: Francisco J Fonseca MDChloride [Moles/Vol]99 mmol/DQeyusw20-576IzdahMercy Health Tiffin HospitalComment on above:Performed By: #### CDP, MELVIN, BMPX, IPF #### [facility] [address] [place] [address] Fine Craft Artist: Francisco J Fonseca MDCO2 [Moles/Vol]23 mmol/ONbjsfa05-92YvwppMercy Health Tiffin HospitalComment on above:Performed By: #### CDP, MELVIN, BMPX, IPF #### [facility] [address] [place] [address] Fine Craft Artist: Francisco J Fonseca MDCreatinine [Mass/Vol]0.61 mg/dLLow0.70-1.20[facility] HospitalComment on above:Performed By: #### CDP, MELVIN, BMPX, IPF #### [facility] [address] [place] [address] Fine Craft Artist: Francisco J Madoff, MDGFR, Amer>60Normal>60[facility] Tiffin HospitalComment on above:Performed By: #### CDP, MELVIN, BMPX, IPF #### [facility] [address] [place] [phone] Fine Craft Artist: Francisco J Fonseca MDGFR,non Amer>60Normal>60[facility] Tiff[facility] HospitalComment on above:Performed By: #### CDP, MELVIN, BMPX, IPF #### [facility] [address] [place] [address] Fine Craft Artist: Francisco J Fonseca MDGlucose [Mass/Vol]125 mg/yGKnei17-67EgrutLoma Linda University Children's HospitalComment on above:Performed By: #### CDP, MELVIN, BMPX, IPF #### [address] [address] Fine Craft Artist: MEIR Brandonodium [Moles/Vol]134 mmol/VCfp289-936SztxwMercy Health Tiffin HospitalComment on above:Performed By: #### CDP, MELVIN, BMPX, IPF #### [facility] [address] [place] [address] Fine Craft Artist: Francisco J Fonseca MDUrea nitrogen [Mass/Vol]19 mg/dLNormal8-23[facility] Tiff[facility] HospitalComment on above:Performed By: #### CDP, MELVIN, BMPX, IPF #### [facility] [address] [place] [address] 100[address] Fine Craft Artist: Francisco J Fonseca MD(cont.)[facility] Comment on above:Result Comment: Average GFR for 70 or more years old: 75 mL/min/1.73sq m Chronic Kidney Disease: <60 mL/min/1.73sq m Kidney failure: <15 mL/min/1.73sq m eGFR calculated using average adult body mass. Additional eGFR calculator available at: http://www.[employer].LawyerPaid/multiple_crcl_2012.htmPerformed By: #### CDP, MELVIN, BMPX, IPF #### [facility] [address] [place] [address] Fine Craft Artist: Francisco J Fonseca MDAnion gap [Moles/Vol]13 mmol/LNormal9-17[facility] HospitalComment on above:Performed By: #### CDP, MELVIN, BMPX, IPF #### [facility] [address] [place] [address] Fine Craft Artist: Francisco J Fonseca MDCalcium [Mass/Vol]8.4 mg/dLLow8.6-10.4[facility] HospitalComment on above:Performed By: #### CDP, MELVIN, BMPX, IPF #### [address] [address] Fine Craft Artist: MARLENY Brandonhloride [Moles/Vol]101 mmol/HRgjmsq55-978PdywmMercy Health Tiffin HospitalComment on above:Performed By: #### CDP, MELVIN, BMPX, IPF #### [address] [address] Fine Craft Artist: Francisco J Fonseca MDCO2 [Moles/Vol]23 mmol/WBolhcd27-47GqsuzMercy Health Tiffin HospitalComment on above:Performed By: #### CDP, MELVIN, BMPX, IPF #### [place] [address] Fine Craft Artist: Francisco J Fonseca MDCreatinine [Mass/Vol]0.73 mg/dLNormal0.70-1.20 [facility] HospitalComment on above:Performed By: #### CDP, MELVIN, BMPX, IPF #### [address] [address] Fine Craft Artist: ARTURO Brandon,Krystal Amer>60Normal>60MerSutter Delta Medical CenterComment on above:Performed By: #### CDP, MELVIN, BMPX, IPF #### [facility] [address] [place] [address] 13983 Fine Craft Artist: Francisco J Fonseca MDGFR,non Amer>60Normal>60[facility] T[facility] HospitalComment on above:Performed By: #### CDP, MELVIN, BMPX, IPF #### [facility] [address] [place] [address] Fine Craft Artist: Francisco J Fonseca MDGlucose [Mass/Vol]124 mg/zFHtcn89-01JvnfeLoma Linda University Children's HospitalComment on above:Performed By: #### CDP, MELVIN, BMPX, IPF #### [facility] [address] [place] [address] 60747 Fine Craft Artist: Francisco J Fonseca, MDPotassium [Moles/Vol]3.9 mmol/LNormal3.7-5.3 [facility] HospitalComment on above:Performed By: #### CDP, MELVIN, BMPX, IPF #### [facility] [address] [place] [address] Fine Craft Artist: MEIR Brandonodium [Moles/Vol]137 mmol/CNxxwnj994-720AgurwMercy Health Tiffin HospitalComment on above:Performed By: #### CDP, MELVIN, BMPX, IPF #### [facility] [address] [place] [phone] Fine Craft Artist: Francisco J Fonseca MDUrea nitrogen [Mass/Vol]24 mg/dLHigh8-23[facility] HospitalComment on above:Performed By: #### CDP, MELVIN, BMPX, IPF #### [facility] [address] [place] [address] 9[address]75 Fine Craft Artist: Francisco J Fonseca MD(cont.)[facility] Comment on above:Result Comment: Average GFR for 70 or more years old: 75 mL/min/1.73sq m Chronic Kidney Disease: <60 mL/min/1.73sq m Kidney failure: <15 mL/min/1.73sq m eGFR calculated using average adult body mass. Additional eGFR calculator available at: http://www.[employer].LawyerPaid/multiple_crcl_2012.htmPerformed By: #### BMPX, MELVIN #### [facility] [address] [place] [address]89 Fine Craft Artist: Francisco J Fonseca MDAnion gap [Moles/Vol]12 mmol/LNormal9-17[facility] T[facility] HospitalComment on above:Performed By: #### BMPX, MELVIN #### [address] [address] Fine Craft Artist: Francisco J Fonseca MDCalcium [Mass/Vol]8.5 mg/dLLow8.6-10.4[facility] Tiffin HospitalComment on above:Performed By: #### BMPX, MELVIN #### [address] [address] Fine Craft Artist: Francisco J Fonseca MDChloride [Moles/Vol]101 mmol/SOincqj50-788PxvjjMercy Health Tiffin HospitalComment on above:Performed By: #### BMPX, MELVIN #### [address] [address] Fine Craft Artist: Francisco J Fonseca MDCO2 [Moles/Vol]23 mmol/FThhozr04-99ColnrMercy Health Tiffin HospitalComment on above:Performed By: #### BMPX, MELVIN #### [address] [address] Fine Craft Artist: Francisco J Fonseca MDCreatinine [Mass/Vol]0.82 mg/dLNormal0.70-1.20 [facility] HospitalComment on above:Performed By: #### BMPX, MELVIN #### [facility] [address] [place] [address] Fine Craft Artist: Francisco J Fonseca MDGFR, Amer>60Normal>60[facility] T[facility] HospitalComment on above:Performed By: #### BMPX, MELVIN #### [facility] [address] [place] [address] 7[address]99 Fine Craft Artist: Francisco J Fonseca MDGFR,non Amer>60Normal>60[facility] Tiffin HospitalComment on above:Performed By: #### BMPX, MELVIN #### [facility] [address] [place] [address] 22898 Fine Craft Artist: Francisco J Fonseca MDGlucose [Mass/Vol]100 mg/tKXhms95-80YisuoLoma Linda University Children's HospitalComment on above:Performed By: #### BMPX, MELVIN #### [address] [address] Fine Craft Artist: DENISE Brandonotassium [Moles/Vol]3.9 mmol/LNormal3.7-5.3 [facility] HospitalComment on above:Performed By: #### BMPX, MELVIN #### [address] [address] Fine Craft Artist: MEIR Brandonodium [Moles/Vol]136 mmol/XRkdbdk984-580WwecbMercy Health Tiffin HospitalComment on above:Performed By: #### BMPX, MELVIN #### [address] [address] Fine Craft Artist: Francisco J Fonseca MDUrea nitrogen [Mass/Vol]26 mg/dLHigh8-23[facility] HospitalComment on above:Performed By: #### BMPX, MELVIN #### [address] [address] Fine Craft Artist: Francisco J Fonseca MD(cont.)[facility] Comment on above:Result Comment: Average GFR for 70 or more years old: 75 mL/min/1.73sq m Chronic Kidney Disease: <60 mL/min/1.73sq m Kidney failure: <15 mL/min/1.73sq m eGFR calculated using average adult body mass. Additional eGFR calculator available at: http://www.[employer].LawyerPaid/multiple_crcl_2012.htmPerformed By: #### CDP #### [address] [address] Fine Craft Artist: Francisco J Fonseca MDAnion gap [Moles/Vol]11 mmol/LNormal9-17[facility] HospitalComment on above:Performed By: #### CDP #### [address] [address] Fine Craft Artist: MARLENY Brandonalcium [Mass/Vol]8.3 mg/dLLow8.6-10.4[facility] Tiffin HospitalComment on above:Performed By: #### CDP #### [address] [address] Fine Craft Artist: MARLENY Brandonhloride [Moles/Vol]104 mmol/LGqoilc84-399PeevqMercy Health Tiffin HospitalComment on above:Performed By: #### CDP #### [address] [address] Fine Craft Artist: Francisco J Fonseca MDCO2 [Moles/Vol]21 mmol/IXgcnwu01-06FxknoMercy Health Tiffin HospitalComment on above:Performed By: #### CDP #### [address] [address] Fine Craft Artist: Francisco J Fonseca MDCreatinine [Mass/Vol]0.83 mg/dLNormal0.70-1.20 [facility] HospitalComment on above:Performed By: #### CDP #### [address] [address] Fine Craft Artist: Francisco J Fonseca MDGFR, Amer>60Normal>60[facility] Tiff[facility] HospitalComment on above:Performed By: #### CDP #### [facility] [place] [address] Fine Craft Artist: Francisco J Fonseca MDGFR,non Amer>60Normal>60[facility] T[facility] HospitalComment on above:Performed By: #### CDP #### [facility] [address] [place] [phone] Fine Craft Artist: Francisco J Fonseca MDGlucose [Mass/Vol]71 mg/gKLvuugs67-18TqnnlLoma Linda University Children's HospitalComment on above:Performed By: #### CDP #### [facility] [address] [place] [address] Fine Craft Artist: DENISE Brandonotassium [Moles/Vol]4.5 mmol/LNormal3.7-5.3 [facility] HospitalComment on above:Result Comment: SPECIMEN SLIGHTLY HEMOLYZED, RESULTS MAY BE ADVERSELY AFFECTED.Performed By: #### CDP #### [address] [address] Fine Craft Artist: MEIR Brandonodium [Moles/Vol]136 mmol/IDsrkgl969-658GinxlMercy Health Tiffin HospitalComment on above:Performed By: #### CDP #### [facility] [address] [place] [address] Fine Craft Artist: Francisco J Fonseca MDUrea nitrogen [Mass/Vol]29 mg/dLHigh8-23[facility] T[facility] HospitalComment on above:Performed By: #### CDP #### [facility] [address] [place] [address] Fine Craft Artist: Francisco J Fonseca [facility] with Diffon [id number]. Basophil0.04 k/uL Normal0.00-0.20[facility] Tiffin HospitalComment on above:Performed By: #### CDP #### [facility] [address] [place] [address] Fine Craft Artist: Vidhya Brandon. Eosinophil<0.45Cxzzro1.00-0.44[facility] Tiffin HospitalComment on above:Performed By: #### CDP #### [address] [address] Fine Craft Artist: MDAbs. RomaImm.Granulocyte0.20 k/uLNormal0.00-0.30[facility] Tiffin HospitalComment on above:Performed By: #### CDP #### [address] [address] Fine Craft Artist: MDAbs. RomaNeutrophil (Seg)18.94 k/uLHigh1.50-8.10[facility] Tiffin HospitalComment on above:Performed By: #### CDP #### [place] [address] Fine Craft Artist: Francisco J Fonseca MDBasophils/100 WBC (Bld)0 %Normal0-2MLoma Linda University Children's HospitalComment on above:Performed By: #### CDP #### [place] [address] Fine Craft Artist: Francisco J Fonseca MDEosinophils/100 WBC (Bld)0 %Low1-4[facility] Tiff[facility] HospitalComment on above:Performed By: #### CDP #### [place] [address] Fine Craft Artist: Francisco J Fonseca MDErythrocyte distribution width (RBC) [Ratio]19.0 %High11.8-14.4[facility] Tiff[facility] HospitalComment on above:Performed By: #### CDP #### [address] [address] Fine Craft Artist: Francisco J Fonseca MDHematocrit (Bld) [Volume fraction]35.1 %Low 40.7-50.3[facility] Faith HospitalComment on above:Performed By: #### CDP #### [address] [address] Fine Craft Artist: Francisco J Fonseca MDHemoglobin (Bld) [Mass/Vol]12.0 g/dLLow13.0-17.0 [facility] HospitalComment on above:Performed By: #### CDP #### [address] [address] Fine Craft Artist: Francisco J Fonseca MDImmature granulocytes/100 WBC (Bld)1 %Lbxn6RuwyhMercy Health Tiffin HospitalComment on above:Performed By: #### CDP #### [address] [address] Fine Craft Artist: Francisco J Fonseca MDLymphocytes (Bld) [#/Vol]0.89 10*3/uLLow 1.10-3.70[facility] Tiffin HospitalComment on above:Performed By: #### CDP #### [address] [address] Fine Craft Artist: Jeremie Brandonmphocytes/100 WBC (Bld)4 %Axx94-41GmtrqMercy Health Tiffin HospitalComment on above:Performed By: #### CDP #### [address] [address] Fine Craft Artist: MARK BrandonCH (RBC) [Entitic mass]27.6 msNlbtbq21.2-33.5 [facility] HospitalComment on above:Performed By: #### CDP #### [address] [address] Fine Craft Artist: MARK BrandonCHC (RBC) [Mass/Vol]34.2 g/lOXekxjn46.4-34.8 [facility] HospitalComment on above:Performed By: #### CDP #### [address] [place] [address] Fine Craft Artist: MARK BrandonCV (RBC) [Entitic vol]80.7 fLLow82.6-102.9[facility] Tiffin HospitalComment on above:Performed By: #### CDP #### [address] [address] Fine Craft Artist: MARK Brandononocytes (Bld) [#/Vol]1.33 10*3/uLHigh0.10-1.20 [facility] HospitalComment on above:Performed By: #### CDP #### [place] [address] Fine Craft Artist: MARK Brandononocytes/100 WBC (Bld)6 %Normal3-12[facility] Tiffin HospitalComment on above:Performed By: #### CDP #### [place] [address] Fine Craft Artist: Shelli Brandonophil (Seg)89 %Bdjh22-81AaihjMercy Health Tiffin HospitalComment on above:Performed By: #### CDP #### [address] [address] Fine Craft Artist: Francisco J Fonseca MDNRBC Automated0.0 per 100 WBCNormal0.0[facility] Tiffin HospitalComment on above:Performed By: #### CDP #### [place] [address] Fine Craft Artist: DENISE Brandonlatelet mean volume (Bld) [Entitic vol]12.3 fL Normal8.1-13.5[facility] Tiffin HospitalComment on above:Performed By: #### CDP #### [address] [address] Fine Craft Artist: DENISE Brandonlatelets (Bld) [#/Vol]245 10*3/kCYivhaf547-859 [facility] HospitalComment on above:Performed By: #### CDP #### [address] [address] Fine Craft Artist: YOLA Brandon (Bld) [#/Vol]4.35 10*6/uLNormal4.21-5.77 [facility] HospitalComment on above:Performed By: #### CDP #### [address] [address] Fine Craft Artist: OYLA Brandon morphology finding Nom (Bld)ANISOCYTOSIS PRESENTNoOhioHealth Grady Memorial HospitalComment on above:Result Comment: MICROCYTOSIS PRESENTPerformed By: #### CDP #### [address] [address] Fine Craft Artist: PABLO Brandon (Bld) [#/Vol]21.4 10*3/uLHigh3.5-11.3MLoma Linda University Children's HospitalComment on above:Performed By: #### CDP #### [address] [address] Fine Craft Artist: Marry Brandon,Urineon [id number],UrineSpecimen Description .INDWELLING CATH URINE Culture NO GROWTH Report Status FINAL 01/04/2022M[facility]letown HospitalComment on above:Performed By: #### CDP, MELVIN, BMPX, IPF #### [address] [address] Fine Craft Artist: Francisco J Fonseca MDLaboratory - Chemistry and Chemistry - challenge on [id number] gap [Moles/Vol]15 mmol/L9 - 17 mmol/LBON [facility] Calcium [Mass/Vol]8.2 mg/dLLow8.6 - 10.4 mg/dLBON SECOURS MERCY HEALTHChloride [Moles/Vol]98 mmol/L98 - 107 mmol/LBON [facility]RS MER[facility] HEALTHCO2 [Moles/Vol]23 mmol/L20 - 31 mmol/LBON SECOURS [facility] HEALTHCreatinine [Mass/Vol]0.66 mg/dLLow 0.70 - 1.20 mg/dLBON SECOURS [facility] HEALTHGFR/1.73 sq M.predicted MDRD (S/P/Bld) [Vol rate/Area][facility] MEDICAL CENTERComment on above:Average GFR for 70 or more years old: 75 mL/min/1.73sq m Chronic Kidney Disease: <60 mL/min/1.73sq m Kidney failure: <15 mL/min/1.73sq m eGFR calculated using average adult body mass. Additional eGFR calculator available at: http://www.Orph[employer]/multiple_crcl_2011.htm Glucose [Mass/Vol]90 mg/dL70 - 99 mg/dLBON SECOCHSNER MEDICAL CENTER HEALTHPhosphate [Mass/Vol]1.9 mg/dLLow2.5 - 4.5 mg/dLBON SECOCHSNER MEDICAL CENTER HEALTHPotassium [Moles/Vol]3.7 mmol/L3.7 - 5.3 mmol/LBON SECMEMORIAL HEALTH SYSTEMSodium [Moles/Vol] 136 mmol/L135 - 144 mmol/LBON SECOCHSNER [facility]ENTER UskapeUrea nitrogen (BldV) [Mass/Vol]20 mg/dL8 - 23 mg/dLBON SECMEMORIAL HEALTH SYSTEMMagnesium [Mass/Vol]1.5 mg/dLLow1.6 - 2.6 mg/dLBON SECOCHSNER MEDICAL CENTER UskapeAnion gap [Moles/Vol]12 mmol/L9 - 17 mmol/LBON [facility]OCH[facility] HEALTHCalcium [Mass/Vol]8.1 mg/dLLow8.6 - 10.4 mg/dL [facility] UskapeChloride [Moles/Vol]99 mmol/L98 - 107 mmol/LBON SECOCHSN[facility] HEALTHCO2 [Moles/Vol]23 mmol/L20 - 31 mmol/LB[facility] HEALTH Creatinine [Mass/Vol]0.61 mg/dLLow0.70 - 1.20 mg/dLBON SECOCHSNER MEDICAL CENTER Uskape GFR/1.73 sq M.predicted MDRD (S/P/Bld) [Vol rate/Area][facility] Comment on above:Average GFR for 70 or more years old: 75 mL/min/1.73sq m Chronic Kidney Disease: <60 mL/min/1.73sq m Kidney failure: <15 mL/min/1.73sq m eGFR calculated using average adult body mass. Additional eGFR calculator available at: http://www.Orph[employer]yme/Xceliant_crcl_2012.htm Glucose [Mass/Vol]125 mg/fCZuxc85 - 99 mg/dLBON SECOURS MERCY HEALTHPotassium [Moles/Vol]3.4 mmol/LLow3.7 - 5.3 mmol/LBON [facility]RS [facility] HEALTHSodium [Moles/Vol]134 mmol/YFxy556 - 144 mmol/LBON SECOURS [facility] HEALTHUrea nitrogen (BldV) [Mass/Vol]19 mg/dL8 - 23 mg/dLBON SECOURS MERCY HEALTHPhosphate [Mass/Vol]2.2 mg/dLLow2.5 - 4.5 mg/dLBON SEC[facility]RS MERCY HEALTHAnion gap [Moles/Vol]13 mmol/L9 - 17 mmol/LBON [facility] HEALTHCalcium [Mass/Vol]8.4 mg/dLLow8.6 - 10.4 mg/dLBON [facility]RS MERCY HEALTHChloride [Moles/Vol]101 mmol/L98 - 107 mmol/LB[facility] HEALTHCO2 [Moles/Vol]23 mmol/L20 - 31 mmol/LB[facility] HEALTHCreatinine [Mass/Vol]0.73 mg/dL0.70 - 1.20 mg/dLBON SECOURS MascotaNubeY HEALTHGFR/1.73 sq M.predicted MDRD (S/P/Bld) [Vol rate/Area][facility] VisitorsCafeComment on above:Average GFR for 70 or more years old: 75 mL/min/1.73sq m Chronic Kidney Disease: <60 mL/min/1.73sq m Kidney failure: <15 mL/min/1.73sq m eGFR calculated using average adult body mass. Additional eGFR calculator available at: http://www.Orph[employer]/Xceliant_crcl_2011.htm Glucose [Mass/Vol]124 mg/oTVxgl04 - 99 mg/dLBON SECOURS MERCY HEALTHPhosphate [Mass/Vol]2.5 [...] HEALTHChloride [Moles/Vol]101 mmol/L98 - 107 mmol/LBON SECOURS [facility] HEALTHCO2 [Moles/Vol]23 mmol/L20 - 31 mmol/LBON SEC[facility]RS [facility] HEALTHCreatinine [Mass/Vol]0.82 mg/dL0.70 - 1.20 mg/dLBON SECOURS MERCY HEALTHGFR/1.73 sq M.predicted MDRD (S/P/Bld) [Vol rate/Area][facility]ON [facility] MEDICAL CENTERComment on above:Average GFR for 70 or more years old: 75 mL/min/1.73sq m Chronic Kidney Disease: <60 mL/min/1.73sq m Kidney failure: <15 mL/min/1.73sq m eGFR calculated using average adult body mass. Additional eGFR calculator available at: http://www.[employer].LawyerPaid/multiple_crcl_2012.htm Glucose [Mass/Vol]100 mg/dHCxuw72 - 99 mg/dLBON SECOURS MERCY HEALTHPhosphate [Mass/Vol]2.7 mg/dL2.5 - 4.5 mg/dLBON [facility] HEALTHPotassium [Moles/Vol] 3.9 mmol/L3.7 - 5.3 mmol/LBON [facility]RS MERCY HEALTHSodium [Moles/Vol]136 mmol/L 135 - 144 mmol/LBON [facility] MERCY HEALTHUrea nitrogen (BldV) [Mass/Vol]26 mg/dL High8 - 23 mg/dLBON SECOCHSNER [facility]ENTER HEALTHGlucose [Mass/Vol]81 mg/dL75 - 110 mg/dL [facility] HEALTHAnion gap [Moles/Vol]11 mmol/L9 - 17 mmol/LBON [facility] HEALTHCalcium [Mass/Vol]8.3 mg/dLLow8.6 - 10.4 mg/dLBON [facility]OCHSN[facility] HEALTHChloride [Moles/Vol]104 mmol/L98 - 107 mmol/LBON [facility]RS [facility] HEALTHCO2 [Moles/Vol]21 mmol/L20 - 31 mmol/LB[facility] HEALTHCreatinine [Mass/Vol] 0.83 mg/dL0.70 - 1.20 mg/dLBON SECOCHSNER MED[facility] HEALTHGFR/1.73 sq M.predicted MDRD (S/P/Bld) [Vol rate/Area][facility] CENTERComment on above:Average GFR for 70 or more years old: 75 mL/min/1.73sq m Chronic Kidney Disease: <60 mL/min/1.73sq m Kidney failure: <15 mL/min/1.73sq m eGFR calculated using average adult body mass. Additional eGFR calculator available at: http://www.Orph[employer]/multiple_crcl_2011.htm Glucose [Mass/Vol]71 mg/dL70 - 99 mg/dLB[facility] HEALTHPhosphate [Mass/Vol]3.2 mg/dL2.5 - 4.5 mg/dLBON [facility] HEALTHPotassium [Moles/Vol] 4.5 mmol/L3.7 - 5.3 mmol/LBON [facility] HEALTHComment on above:SPECIMEN SLIGHTLY HEMOLYZED, RESULTS MAY BE ADVERSELY AFFECTED.Sodium [Moles/Vol]136 mmol/L135 - 144 mmol/LBON [facility]OCHSN[facility] HEALTHUrea nitrogen (BldV) [Mass/Vol]29 mg/dLHigh8 - 23 mg/dLBON [facility] HEALTHLaboratory - Hematology and Cell countson 67-75-2526Rhxctqqaw (Bld) [#/Vol]0.04 10*3/uLBON SECOURS [facility] Basophils/100 WBC (Bld)0 %0 - 2 %[facility] HEALTH CENTEREosinophils/100 WBC (Bld)0 %Low1 - 4 %[facility] HEALTH CENTERHematocrit (Bld) [Volume fraction]35.1 %Low40.7 - 50.3 %[facility] HEALTH CENTERHemoglobin (Bld) [Mass/Vol]12.0 g/dLLow 13.0 - 17.0 g/dLBON [facility] MEDICAL CENTERImmature granulocytes/100 WBC (Bld)1 % Sgpq2SPN [facility] CENTERLymphocytes/100 WBC (Bld)4 %Low24 - 43 %[facility] (RBC) [Entitic mass]27.6 pg25.2 - 33.5 pgBALLAD HEALTHHC (RBC) [Mass/Vol]34.2 g/dL28.4 - 34.8 g/dLBON SECMERCY [facility]ONT [facility]OSPITALV (RBC) [Entitic vol]80.7 fLLow82.6 - 102.9 fLRIVERSIDE BEHAVIORAL [facility]ALTH CENTER Monocytes/100 WBC (Bld)6 %3 - 12 %[facility] CENTERPlatelet distribution width (Bld) [Ratio]19.0 %High11.8 - 14.4 %[facility] CENTERPlatelet mean volume (Bld) [Entitic vol]12.3 fL8.1 - 13.5 fLINOVA [facility]LEXANDRIA [facility]OSPITAL HEALTHPlatelets (Bld) [#/Vol]245 10*3/uLRIVERSIDE BEHAVIORAL HEALTH CENTERRBC (Bld) [#/Vol]4.35 10*6/uL 4.21 - 5.77 m/uLRIVERSIDE BEHAVIORAL HEALTH CENTERRBC (Bld) [#/Vol]ANISOCYTOSIS PRESENTRIVERSIDE BEHAVIORAL HEALTH CENTERComment on above:MICROCYTOSIS PRESENTSegmented neutrophils/100 WBC (Bld)89 %High36 - 65 %[facility] CENTERWBC (Bld) [#/Vol]21.4 10*3/uLHighRIVERSIDE BEHAVIORAL HEALTH CENTERLaboratory - Microbiology and Antimicrobial susceptibilityon [id number] identified Cx Nom (U)NO GROWTH [facility] CENTERMagnesiumon [id number] [Mass/Vol]1.5 mg/dLLow 1.6-2.6[facility] Faith HospitalComment on above:Performed By: #### CDP, MELVIN, BMPX, IPF #### [facility] [address] [place] [address] Fine Craft Artist: Maggie Brandon Panel Informationon [id number] >60>60 mL/minBON SECOURS MERCY HEALTHGFR Non->60>60 mL/minBON [...] [facility] NRBC Automated0.00.0 per 100 WBCBON OH[facility]OUT[facility] MEDICAL CENTERSegs Udbqfnbn57.94High BON [facility] HOSPITALSpecimen Description.INDWELLING CATH URINEBON LEW[facility] CLARK SPECIALTY HOSPITALPhosphorus, Inorg.on [id number], Inorg.2.2 mg/dLLow2.5-4.5[facility] Comment on above:Performed By: #### CDP, MELVIN, BMPX, IPF #### [facility] [address] [place] [address] Fine Craft Artist: Francisco J Fonseca MDPhosphorus, Inorg.2.5 mg/dLNormal2.5-4.5[facility] HospitalComment on above:Performed By: #### CDP, MELVIN, BMPX, IPF #### [facility] [address] [place] [address] Fine Craft Artist: DENISE Brandonhosphorus, Inorg.2.7 mg/dLNormal2.5-4.5[facility] HospitalComment on above:Performed By: #### BMPX, MELVIN #### [facility] [address] [place] [address] Fine Craft Artist: DENISE Brandonhosphorus, Inorg.3.2 mg/dLNormal2.5-4.5[facility] HospitalComment on above:Performed By: #### CDP #### [facility] [address] [place] [address] Fine Craft Artist: Rubina Brandon Metab w/rfx MGon 01-03-2022(cont.)Normal [facility] HospitalComment on above:Result Comment: Average GFR for 70 or more years old: 75 mL/min/1.73sq m Chronic Kidney Disease: <60 mL/min/1.73sq m Kidney failure: <15 mL/min/1.73sq m eGFR calculated using average adult body mass. Additional eGFR calculator available at: http://www.[employer].com/multiple_crcl_2012.htmPerformed By: #### CDP, MELVIN, BMPX, IPF #### [facility] [address] [place] [phone] Fine Craft Artist: Francisco J Fonseca MDAnion gap [Moles/Vol]12 mmol/LNormal9-17[facility] HospitalComment on above:Performed By: #### CDP, MELVIN, BMPX, IPF #### [facility] [address] [place] [address] Fine Craft Artist: Francisco J Fonseca MDCalcium [Mass/Vol]8.3 mg/dLLow8.6-10.4[facility] HospitalComment on above:Performed By: #### CDP, MELVIN, BMPX, IPF #### [address] [address] Fine Craft Artist: Francisco J Fonseca MDChloride [Moles/Vol]102 mmol/WJtnpnb30-368PxytjMercy Health Tiffin HospitalComment on above:Performed By: #### CDP, MELVIN, BMPX, IPF #### [facility] [address] [place] [address] Fine Craft Artist: Francisco J Fonseca MDCO2 [Moles/Vol]21 mmol/BSjeeig47-77OjvmaMercy Health Tiffin HospitalComment on above:Performed By: #### CDP, MELVIN, BMPX, IPF #### [facility] [address] [place] [address] Fine Craft Artist: Francisco J Fonseca MDCreatinine [Mass/Vol]0.88 mg/dLNormal0.70-1.20 [facility] HospitalComment on above:Performed By: #### CDP, MELVIN, BMPX, IPF #### [facility] [address] [place] [address] Fine Craft Artist: Francisco J Fonseca MDGFR, Amer>60Normal>60[facility] HospitalComment on above:Performed By: #### CDP, MELVIN, BMPX, IPF #### [facility] [address] [place] [address] Fine Craft Artist: Francisco J Fonseca MDGFR,non Amer>60Normal>60[facility] HospitalComment on above:Performed By: #### CDP, MELVIN, BMPX, IPF #### [facility] [address] [place] [address] Fine Craft Artist: Francisco J Fonseca MDGlucose [Mass/Vol]74 mg/aACidhkn08-91GfquuLoma Linda University Children's HospitalComment on above:Performed By: #### CDP, MELVIN, BMPX, IPF #### [address] [address] Fine Craft Artist: Francisco J Fonseca MDPotassium [Moles/Vol]4.2 mmol/LNormal3.7-5.3 [facility] HospitalComment on above:Performed By: #### CDP, MELVIN, BMPX, IPF #### [address] [address] Fine Craft Artist: Francisco J Fonseca MDSodium [Moles/Vol]135 mmol/YKaelvj068-399AghwyMercy Health Tiffin HospitalComment on above:Performed By: #### CDP, MELVIN, BMPX, IPF #### [facility] [address] [place] [address] Fine Craft Artist: Francisco J Fonseca MDUrea nitrogen [Mass/Vol]29 mg/dLHigh8-23[facility] HospitalComment on above:Performed By: #### CDP, MELVIN, BMPX, IPF #### [facility] [address] [place] [address] Fine Craft Artist: Francisco J Fonseca MD(cont.)[facility] Comment on above:Result Comment: Average GFR for 70 or more years old: 75 mL/min/1.73sq m Chronic Kidney Disease: <60 mL/min/1.73sq m Kidney failure: <15 mL/min/1.73sq m eGFR calculated using average adult body mass. Additional eGFR calculator available at: http://www.[employer].LawyerPaid/multiple_crcl_2012.htmPerformed By: #### CDP #### [facility] [address] [place] [address] Fine Craft Artist: Francisco J Fonseca MDAnion gap [Moles/Vol]12 mmol/LNormal9-17[facility] HospitalComment on above:Performed By: #### CDP #### [facility] [address] [place] [address] Fine Craft Artist: MARLENY Brandonalcium [Mass/Vol]8.4 mg/dLLow8.6-10.4[facility] HospitalComment on above:Performed By: #### CDP #### [facility] [address] [place] [address] Fine Craft Artist: MARLENY Brandonhloride [Moles/Vol]103 mmol/WRnzdud17-816QzycvMercy Health Tiffin HospitalComment on above:Performed By: #### CDP #### [facility] HospitalTerm[facility] [address] [place] [address] Fine Craft Artist: Francisco J Fonseca MDCO2 [Moles/Vol]21 mmol/HTkfabq03-78YoeirMercy Health Tiffin HospitalComment on above:Performed By: #### CDP #### [facility] [address] [place] [address] Fine Craft Artist: MARLENY Brandonreatinine [Mass/Vol]0.93 mg/dLNormal0.70-1.20 [facility] HospitalComment on above:Performed By: #### CDP #### [facility] [address] [place] [address] Fine Craft Artist: Francisco J Fonseca MDGFR, Amer>60Normal>60[facility] HospitalComment on above:Performed By: #### CDP #### [address] [address] Fine Craft Artist: Francisco J Fonseca MDGFR,non Amer>60Normal>60[facility] HospitalComment on above:Performed By: #### CDP #### [address] [address] Fine Craft Artist: Francisco J Fonseca MDGlucose [Mass/Vol]155 mg/kMYbcf62-89ToujzLoma Linda University Children's HospitalComment on above:Performed By: #### CDP #### [address] [address] Fine Craft Artist: DENISE Brandonotassium [Moles/Vol]3.9 mmol/LNormal3.7-5.3 [facility] HospitalComment on above:Performed By: #### CDP #### [address] [address] Fine Craft Artist: MEIR Brandonodium [Moles/Vol]136 mmol/GJwfoiw771-704NdttrMercy Health Tiffin HospitalComment on above:Performed By: #### CDP #### [address] [address] Fine Craft Artist: Francisco J Fonseca MDUrea nitrogen [Mass/Vol]28 mg/dLHigh8-23[facility] HospitalComment on above:Performed By: #### CDP #### [address] [address] Fine Craft Artist: Francisco J Fonseca MD(cont.)[facility] Comment on above:Result Comment: Average GFR for 70 or more years old: 75 mL/min/1.73sq m Chronic Kidney Disease: <60 mL/min/1.73sq m Kidney failure: <15 mL/min/1.73sq m eGFR calculated using average adult body mass. Additional eGFR calculator available at: http://www.[employer].LawyerPaid/multiple_crcl_2012.htmPerformed By: #### CDP, MELVIN, BMPX, IPF #### [facility] [address] [place] [address] Fine Craft Artist: Francisco J Fonseca MDAnion gap [Moles/Vol]11 mmol/LNormal9-17[facility] HospitalComment on above:Performed By: #### CDP, MELVIN, BMPX, IPF #### [address] [address] Fine Craft Artist: Francisco J Fonseca MDCalcium [Mass/Vol]8.4 mg/dLLow8.6-10.4[facility] HospitalComment on above:Performed By: #### CDP, MELVIN, BMPX, IPF #### [facility] [address] [place] [address] Fine Craft Artist: Francisco J Fonseca MDChloride [Moles/Vol]103 mmol/CAqymqs13-480UclvtMercy Health Tiffin HospitalComment on above:Performed By: #### CDP, MELVIN, BMPX, IPF #### [facility] [address] [place] [address] Fine Craft Artist: Francisco J Fonseca MDCO2 [Moles/Vol]24 mmol/MUjaonv84-65HbgpsMercy Health Tiffin HospitalComment on above:Performed By: #### CDP, MELVIN, BMPX, IPF #### [facility] [address] [place] [address] Fine Craft Artist: Francisco J Fonseca MDCreatinine [Mass/Vol]0.92 mg/dLNormal0.70-1.20 [facility] HospitalComment on above:Performed By: #### CDP, MELVIN, BMPX, IPF #### [facility] [address] [place] [address] Fine Craft Artist: Francisco J Fonseca MDGFR, Amer>60Normal>60[facility] HospitalComment on above:Performed By: #### CDP, MELVIN, BMPX, IPF #### [facility] [address] [place] [address] Fine Craft Artist: Francisco J Fonseca MDGFR,non Amer>60Normal>60[facility] HospitalComment on above:Performed By: #### CDP, MELVIN, BMPX, IPF #### [facility] [address] [place] [address] Fine Craft Artist: Francisco J Fonseca MDGlucose [Mass/Vol]226 mg/jOIyfh65-06QzhjgLoma Linda University Children's HospitalComment on above:Performed By: #### CDP, MELVIN, BMPX, IPF #### [facility] [address] [place] [address] Fine Craft Artist: Francisco J Fonseca, MDPotassium [Moles/Vol]5.0 mmol/LNormal3.7-5.3 [facility] HospitalComment on above:Performed By: #### CDP, MELVIN, BMPX, IPF #### [facility] [address] [place] [address] Fine Craft Artist: Francisco J Fonseca MDSodium [Moles/Vol]138 mmol/KPkridd732-467FpkdvMercy Health Tiffin HospitalComment on above:Performed By: #### CDP, MELVIN, BMPX, IPF #### [facility] [address] [place] [address] Fine Craft Artist: Francisco J Fonseca MDUrea nitrogen [Mass/Vol]26 mg/dLHigh8-23[facility] HospitalComment on above:Performed By: #### CDP, MELVIN, BMPX, IPF #### [facility] [address] [place] [address] Fine Craft Artist: Francisco J Fonseca MD(cont.)NormalMercy Health Tiffin Hospital Comment on above:Result Comment: Average GFR for 70 or more years old: 75 mL/min/1.73sq m Chronic Kidney Disease: <60 mL/min/1.73sq m Kidney failure: <15 mL/min/1.73sq m eGFR calculated using average adult body mass. Additional eGFR calculator available at: http://www.[employer].LawyerPaid/multiple_crcl_2012.htmPerformed By: #### CDP, MELVIN, BMPX, IPF #### [facility] [address] [place] [address] Fine Craft Artist: Francisco J Fonseca MDAnion gap [Moles/Vol]13 mmol/LNormal9-17[facility] HospitalComment on above:Performed By: #### CDP, MELVIN, BMPX, IPF #### [facility] [address] [place] [address] Fine Craft Artist: MARLENY Brandonalcium [Mass/Vol]8.4 mg/dLLow8.6-10.4[facility] HospitalComment on above:Performed By: #### CDP, MELVIN, BMPX, IPF #### [facility] [address] [place] [address] Fine Craft Artist: Francisco J Fonseca MDChloride [Moles/Vol]104 mmol/GByyagm23-894FnfdwMercy Health Tiffin HospitalComment on above:Performed By: #### CDP, MELVIN, BMPX, IPF #### [facility] [address] [place] [address] Fine Craft Artist: Francisco J Fonseca MDCO2 [Moles/Vol]21 mmol/FBiiqfe93-14JlrgcMercy Health Tiffin HospitalComment on above:Performed By: #### CDP, MELVIN, BMPX, IPF #### [facility] [address] [place] [address] Fine Craft Artist: Francisco J Fonseca MDCreatinine [Mass/Vol]0.84 mg/dLNormal0.70-1.20 [facility] HospitalComment on above:Performed By: #### CDP, MELVIN, BMPX, IPF #### [facility] [address] [place] [address] Fine Craft Artist: Francisco J Fonseca MDGFR, Amer>60Normal>60[facility] HospitalComment on above:Performed By: #### CDP, MELVIN, BMPX, IPF #### [address] [address] Fine Craft Artist: Francisco J Fonseca MDGFR,non Amer>60Normal>60[facility] HospitalComment on above:Performed By: #### CDP, MELVIN, BMPX, IPF #### [address] [address] Fine Craft Artist: Francisco J Fonseca MDGlucose [Mass/Vol]176 mg/qXGneb92-95WxbopHazel Hawkins Memorial HospitalComment on above:Performed By: #### CDP, MELVIN, BMPX, IPF #### [place] [address] Fine Craft Artist: Francisco J Fonseca MDPotassium [Moles/Vol]4.5 mmol/LNormal3.7-5.3 [facility] HospitalComment on above:Performed By: #### CDP, MELVIN, BMPX, IPF #### [address] [address] Fine Craft Artist: Francisco J Fonseca MDSodium [Moles/Vol]138 mmol/YGuimbe235-954NnyuvMercy Health Tiffin HospitalComment on above:Performed By: #### CDP, MELVIN, BMPX, IPF #### [address] [address] Fine Craft Artist: Francisco J Fonseca MDUrea nitrogen [Mass/Vol]21 mg/dLNormal8-23[facility] HospitalComment on above:Performed By: #### CDP, MELVIN, BMPX, IPF #### [facility] [address] [place] [address] Fine Craft Artist: Francisco J Fonseca MD(cont.)[facility] Comment on above:Result Comment: Average GFR for 70 or more years old: 75 mL/min/1.73sq m Chronic Kidney Disease: <60 mL/min/1.73sq m Kidney failure: <15 mL/min/1.73sq m eGFR calculated using average adult body mass. Additional eGFR calculator available at: http://www.[employer].LawyerPaid/multiple_crcl_2012.htmPerformed By: #### CDP, MELVIN, BMPX, IPF #### [facility] [address] [place] [address] Fine Craft Artist: Francisco J Fonseca MDAnion gap [Moles/Vol]6 mmol/LLow9-17[facility] HospitalComment on above:Performed By: #### CDP, MELVIN, BMPX, IPF #### [facility]Term[facility] [address] [place] [address] Fine Craft Artist: Francisco J Fonseca MDCalcium [Mass/Vol]8.5 mg/dLLow8.6-10.4[facility] HospitalComment on above:Performed By: #### CDP, MELVIN, BMPX, IPF #### [facility] [address] [place] [address] Fine Craft Artist: Francisco J Fonseca MDChloride [Moles/Vol]105 mmol/QCwolgg72-168InoigMercy Health Tiffin HospitalComment on above:Performed By: #### CDP, MELVIN, BMPX, IPF #### [facility] [address] [place] [address] Fine Craft Artist: Francisco J Fonseca MDCO2 [Moles/Vol]25 mmol/ZTybkit65-57BhhtkMercy Health Tiffin HospitalComment on above:Performed By: #### CDP, MELVIN, BMPX, IPF #### [facility] [address] [place] [address] Fine Craft Artist: MARLENY Brandonreatinine [Mass/Vol]0.75 mg/dLNormal0.70-1.20 [facility] HospitalComment on above:Performed By: #### CDP, MELVIN, BMPX, IPF #### [address] [address] Fine Craft Artist: Francisco J Fonseca MDGFR, Amer>60Normal>60MerSutter Delta Medical CenterComment on above:Performed By: #### CDP, MELVIN, BMPX, IPF #### [address] [address] Fine Craft Artist: ARTURO Brandon,non Amer>60Normal>60[facility] HospitalComment on above:Performed By: #### CDP, MELVIN, BMPX, IPF #### [address] [address] Fine Craft Artist: Francisco J Fonseca MDGlucose [Mass/Vol]81 mg/cSNrpzza83-67ZwplsLoma Linda University Children's HospitalComment on above:Performed By: #### CDP, MELVIN, BMPX, IPF #### [address] [address] Fine Craft Artist: Francisco J Fonseca MDPotassium [Moles/Vol]4.6 mmol/LNormal3.7-5.3 [facility] HospitalComment on above:Performed By: #### CDP, MELVIN, BMPX, IPF #### [address] [address] Fine Craft Artist: Francisco J Fonseca MDSodium [Moles/Vol]136 mmol/VPvihdh262-223VhbmrMercy Health Tiffin HospitalComment on above:Performed By: #### CDP, MELVIN, BMPX, IPF #### [facility] [address] [place] [address] Fine Craft Artist: Francisco J Fonseca MDUrea nitrogen [Mass/Vol]18 mg/dLNormal8-23[facility] HospitalComment on above:Performed By: #### CDP, MELVIN, BMPX, IPF #### [address] [address] Fine Craft Artist: MARLENY Brandon with Diffon [id number]. Basophil0.00 k/uL Normal0.0-0.2MLoma Linda University Children's HospitalComment on above:Performed By: #### CDP #### [address] [address] Fine Craft Artist: Vidhya Brandon.Imm.Granulocyte0.00 k/uLNormal0.00-0.30[facility] HospitalComment on above:Performed By: #### CDP #### [address] [address] Fine Craft Artist: Vidhya Brandon.Neutrophil (Seg)19.89 k/uLHigh1.8-7.7[facility] HospitalComment on above:Performed By: #### CDP #### [address] [address] Fine Craft Artist: Francisco J Fonseca MDBasophils/100 WBC (Bld)0 %Normal0-2MLoma Linda University Children's HospitalComment on above:Performed By: #### CDP #### [address] [address] Fine Craft Artist: Francisco J Fonseca MDEosinophils (Bld) [#/Vol]0.00 10*3/uLNormal 0.0-0.4[facility] HospitalComment on above:Performed By: #### CDP #### [address] [address] Fine Craft Artist: Francisco J Madoff, MDEosinophils/100 WBC (Bld)0 %Low1-4[facility] HospitalComment on above:Performed By: #### CDP #### [address] [address] Fine Craft Artist: Francisco J Fonseca MDImmature granulocytes/100 WBC (Bld)0 %Normal0 [facility] HospitalComment on above:Performed By: #### CDP #### [address] [address] Fine Craft Artist: Francisco J Fonseca MDLymphocytes (Bld) [#/Vol]0.88 10*3/uLLow1.0-4.8 [facility] HospitalComment on above:Performed By: #### CDP #### [address] [address] Fine Craft Artist: Francisco J Fonseca MDLymphocytes/100 WBC (Bld)4 %Ceo32-81WuqwyMercy Health Tiffin HospitalComment on above:Performed By: #### CDP #### [address] [address] Fine Craft Artist: MARK Brandononocytes (Bld) [#/Vol]1.33 10*3/uLHigh0.1-0.8 [facility] HospitalComment on above:Performed By: #### CDP #### [address] [address] Fine Craft Artist: Francisco J Fonseca MDMonocytes/100 WBC (Bld)6 %Normal1-7[facility] HospitalComment on above:Performed By: #### CDP #### [address] [address] Fine Craft Artist: Francisco J Fonseca MDMorphology Walter (Bld) [Interp]MICROCYTOSIS PRESENTNormalMercy Health Tiffin HospitalComment on above:Result Comment: ANISOCYTOSIS PRESENT 1+ ACANTHOCYTESPerformed By: #### CDP #### [address] [address] Fine Craft Artist: Francisco J Fonseca MDNeutrophil (Seg)90 %Volf10-66IavisMercy Health Tiffin HospitalComment on above:Performed By: #### CDP #### [address] [address] Fine Craft Artist: Francisco J Fonseca MDErythrocyte distribution width (RBC) [Ratio]18.9 %High11.8-14.4[facility] HospitalComment on above:Performed By: #### CDP #### [address] [address] Fine Craft Artist: Francisco J Fonseca MDHematocrit (Bld) [Volume fraction]37.4 %Low 40.7-50.3MLoma Linda University Children's HospitalComment on above:Performed By: #### CDP #### [address] [address] Fine Craft Artist: Francisco J Fonseca MDHemoglobin (Bld) [Mass/Vol]12.2 g/dLLow13.0-17.0 [facility] HospitalComment on above:Performed By: #### CDP #### [address] [address] Fine Craft Artist: MARK BrandonCH (RBC) [Entitic mass]26.9 krQxeqss50.2-33.5 [facility] HospitalComment on above:Performed By: #### CDP #### [address] [address] Fine Craft Artist: MARK BrandonCHC (RBC) [Mass/Vol]32.6 g/eECvchbx26.4-34.8 [facility] HospitalComment on above:Performed By: #### CDP #### [address] [place] [address] Fine Craft Artist: MARK BrandonCV (RBC) [Entitic vol]82.4 fLLow82.6-102.9[facility] HospitalComment on above:Performed By: #### CDP #### [address] [address] Fine Craft Artist: SONIA Brandon Automated0.0 per 100 WBCNormal0.0[facility] HospitalComment on above:Performed By: #### CDP #### [address] [address] Fine Craft Artist: Meera Brandon mean volume (Bld) [Entitic vol]12.6 fL Normal8.1-13.5[facility] HospitalComment on above:Performed By: #### CDP #### [address] [address] Fine Craft Artist: Cade Brandon (Bld) [#/Vol]292 10*3/rWZqoepg524-525 [facility] HospitalComment on above:Performed By: #### CDP #### [address] [address] Fine Craft Artist: YOLA Brandon (Bld) [#/Vol]4.54 10*6/uLNormal4.21-5.77 [facility] HospitalComment on above:Performed By: #### CDP #### [address] [address] Fine Craft Artist: PABLO Brandon (Bld) [#/Vol]22.1 10*3/uLHigh3.5-11.3MLoma Linda University Children's HospitalComment on above:Performed By: #### CDP #### [address] [address] Fine Craft Artist: Francisco J Fonseca MDHemoglobin A1Con 80-63-3886Ofnxmav [Mass/Vol]223 mg/dLNormalMercy Health Tiffin HospitalComment on above:Result Comment: The ADA and AACC recommend providing the estimated average glucose result to permit better patient understanding of their HBA1c result.Performed By: #### CDP, MELVIN, BMPX, IPF #### [facility] [address] [place] [address] Fine Craft Artist: Francisco J Fonseca MDHbA1c (Bld) [Mass fraction]9.4 %High4.0-6.0[facility] HospitalComment on above:Performed By: #### CDP, MELVIN, BMPX, IPF #### [facility] [address] [place] [address] Fine Craft Artist: Francisco J Fonseca MDLaboratory - Chemistry and Chemistry - challenge on [id number] gap [Moles/Vol]12 mmol/L9 - 17 mmol/LBON [employer] Calcium [Mass/Vol]8.3 mg/dLLow8.6 - 10.4 mg/dLBON SECamazingtunesChloride [Moles/Vol]102 mmol/L98 - 107 mmol/LBON SECamazingtunesCO2 [Moles/Vol]21 mmol/L20 - 31 mmol/LBON SECamazingtunesCreatinine [Mass/Vol]0.88 mg/dL0.70 - 1.20 mg/dLBON SECamazingtunesGFR/1.73 sq M.predicted MDRD (S/P/Bld) [Vol rate/Area]BON [facility] HEALTH[facility] CENTERamazingtunesComment on above:Average GFR for 70 or more years old: 75 mL/min/1.73sq m Chronic Kidney Disease: <60 mL/min/1.73sq m Kidney failure: <15 mL/min/1.73sq m eGFR calculated using average adult body mass. Additional eGFR calculator available at: http://www.[employer].LawyerPaid/multiple_crcl_2012.htm Glucose [Mass/Vol]74 mg/dL70 - 99 mg/dLBON SECECS Tuning HEALTHPhosphate [Mass/Vol]3.3 mg/dL2.5 - 4.5 mg/dLBON [facility] MED[facility] CENTERPotassium [Moles/Vol] 4.2 mmol/L3.7 - 5.3 mmol/LBON [facility] SOUTHE[facility]ERN MEDICAL CENTERSodium [Moles/Vol]135 mmol/L 135 - 144 mmol/LBON [facility]OUTHEASTERN MEDICAL CENTERUrea nitrogen (BldV) [Mass/Vol]29 mg/dL High8 - 23 mg/dLBON [facility] HEALTHGlucose [Mass/Vol]69 mg/dLLow75 - 110 mg/dLBON [facility] HEALTHGlucose [Mass/Vol]93 mg/dL75 - 110 mg/dLBON [facility]OUTHE[facility]ERN MEDICAL CENTERGlucose [Mass/Vol]55 mg/dLLow75 - 110 mg/dLBON [facility] Comment on above:Critical NotedGlucose [Mass/Vol]88 mg/dL75 - 110 mg/dLBON [facility]OUTHEASTERN MEDICAL CENTERAnion gap [Moles/Vol]12 mmol/L9 - 17 mmol/LBON [facility] MEDICAL CENTERCalcium [Mass/Vol]8.4 mg/dLLow8.6 - 10.4 mg/dLBON [facility] Chloride [Moles/Vol]103 mmol/L98 - 107 mmol/LB[facility] CENTERCO2 [Moles/Vol]21 mmol/L20 - 31 mmol/[facility] CENTERCreatinine [Mass/Vol] 0.93 mg/dL0.70 - 1.20 mg/dLBON [facility] CENTERGFR/1.73 sq M.predicted MDRD (S/P/Bld) [Vol rate/Area][facility] CENTERComment on above:Average GFR for 70 or more years old: 75 mL/min/1.73sq m Chronic Kidney Disease: <60 mL/min/1.73sq m Kidney failure: <15 mL/min/1.73sq m eGFR calculated using average adult body mass. Additional eGFR calculator available at: http://www.Orphazyme/multiple_crcl_2012.htm Glucose [Mass/Vol]155 mg/eUBnfn52 - 99 mg/dLBON [facility] HEALTHPhosphate [Mass/Vol]2.9 mg/dL2.5 - 4.5 mg/dLBON [facility] HEALTHPotassium [Moles/Vol] 3.9 mmol/L3.7 - 5.3 mmol/LBON [facility] HEALTHSodium [Moles/Vol]136 mmol/L 135 - 144 mmol/LBON [facility]Y HEALTHUrea nitrogen (BldV) [Mass/Vol]28 mg/dL High8 - 23 mg/dLBON [facility] MERCY HEALTHGlucose [Mass/Vol]152 mg/yEUeob21 - 110 mg/dLBON [facility] HEALTHGlucose [Mass/Vol]216 mg/iEUatl65 - 110 mg/dLBON [facility] HEALTHGlucose [Mass/Vol]242 mg/cHHgnj22 - 110 mg/dLB[facility] HEALTHGlucose [Mass/Vol]243 mg/ePPxug94 - 110 mg/dLBON [facility] HEALTHAnion gap [Moles/Vol]11 mmol/L9 - 17 mmol/LBON [facility] HEALTHCalcium [Mass/Vol]8.4 mg/dLLow8.6 - 10.4 mg/dLBON [facility] HEALTHChloride [Moles/Vol]103 mmol/L98 - 107 mmol/LB[facility] HEALTHCO2 [Moles/Vol]24 mmol/L20 - 31 mmol/LBON [facility] HEALTHCreatinine [Mass/Vol]0.92 mg/dL0.70 - 1.20 mg/dLBON [facility] MERCY HEALTHGFR/1.73 sq M.predicted MDRD (S/P/Bld) [Vol rate/Area][facility] CENTERComment on above:Average GFR for 70 or more years old: 75 mL/min/1.73sq m Chronic Kidney Disease: <60 mL/min/1.73sq m Kidney failure: <15 mL/min/1.73sq m eGFR calculated using average adult body mass. Additional eGFR calculator available at: http://www.Orphazyme/multiple_crcl_2012.htm Glucose [Mass/Vol]226 mg/hSUimi69 - 99 mg/dLBON [facility] MERCY HEALTHPhosphate [Mass/Vol]3.5 mg/dL2.5 - 4.5 mg/dLB[facility] HEALTHPotassium [Moles/Vol] 5.0 mmol/L3.7 - 5.3 mmol/LBON [facility] HEALTHSodium [Moles/Vol]138 mmol/L 135 - 144 mmol/LBON [facility] HEALTHUrea nitrogen (BldV) [Mass/Vol]26 mg/dL High8 - 23 mg/dLBON [facility]CY HEALTHGlucose [Mass/Vol]214 mg/nDNsnl43 - 110 mg/dLBON [facility] HEALTHAnion gap [Moles/Vol]13 mmol/L9 - 17 mmol/LB[facility] HEALTHCalcium [Mass/Vol]8.4 mg/dLLow8.6 - 10.4 mg/dLBON [facility] HEALTHChloride [Moles/Vol]104 mmol/L98 - 107 mmol/LB[facility] HEALTHCO2 [Moles/Vol]21 mmol/L20 - 31 mmol/LB[facility] HEALTHCreatinine [Mass/Vol]0.84 mg/dL0.70 - 1.20 mg/dLBON [facility] HEALTHGFR/1.73 sq M.predicted MDRD (S/P/Bld) [Vol rate/Area][facility] CENTERComment on above:Average GFR for 70 or more years old: 75 mL/min/1.73sq m Chronic Kidney Disease: <60 mL/min/1.73sq m Kidney failure: <15 mL/min/1.73sq m eGFR calculated using average adult body mass. Additional eGFR calculator available at: http://www.[employer].LawyerPaid/multiple_crcl_2011.htm Glucose [Mass/Vol]176 mg/kFHjwh83 - 99 mg/dLBON [facility]RS MERCY HEALTHPhosphate [Mass/Vol]3.1 mg/dL2.5 - 4.5 mg/dLB[facility] HEALTHPotassium [Moles/Vol] 4.5 mmol/L3.7 - 5.3 mmol/LBON [facility] HEALTHSodium [Moles/Vol]138 mmol/L 135 - 144 mmol/LBON [facility] HEALTHUrea nitrogen (BldV) [Mass/Vol]21 mg/dL8 - 23 mg/dLBON [facility] HEALTHGlucose [Mass/Vol]126 mg/iCYicq45 - 110 mg/dL [facility]Y HEALTHGlucose [Mass/Vol]165 mg/vMVmnc90 - 110 mg/dLBON [facility] HEALTHGlucose [Mass/Vol]142 mg/oNMikl79 - 110 mg/dLBON [facility] HEALTHGlucose [Mass/Vol]89 mg/dL75 - 110 mg/dLBON [facility] HEALTHGlucose [Mass/Vol]71 mg/dLLow75 - 110 mg/dLBON [facility] HEALTHGlucose [Mass/Vol]82 mg/dL75 - 110 mg/dLBON [facility] HEALTHGlucose [Mass/Vol]128 mg/hCBnwh07 - 110 mg/dLBON SECMEMORIAL HEALTH SYSTEMAnion gap [Moles/Vol]6 mmol/LLow9 - 17 mmol/L [facility] CENTERCalcium [Mass/Vol]8.5 mg/dLLow8.6 - 10.4 mg/dLBON SECO[facility] HEALTHChloride [Moles/Vol]105 mmol/L98 - 107 mmol/LB[facility] CENTERCO2 [Moles/Vol]25 mmol/L20 - 31 mmol/[facility] Creatinine [Mass/Vol]0.75 mg/dL0.70 - 1.20 mg/dLBON [facility] CENTERGFR/1.73 sq M.predicted MDRD (S/P/Bld) [Vol rate/Area][facility] CENTERComment on above:Average GFR for 70 or more years old: 75 mL/min/1.73sq m Chronic Kidney Disease: <60 mL/min/1.73sq m Kidney failure: <15 mL/min/1.73sq m eGFR calculated using average adult body mass. Additional eGFR calculator available at: http://www.[employer].LawyerPaid/multiple_crcl_2012.htm Glucose [Mass/Vol]81 mg/dL70 - 99 mg/dLBON [facility] HEALTHPhosphate [Mass/Vol]2.5 mg/dL2.5 - 4.5 mg/dLBON [facility] CENTERPotassium [Moles/Vol] 4.6 mmol/L3.7 - 5.3 mmol/LBON [facility] HEALTHSodium [Moles/Vol]136 mmol/L 135 - 144 mmol/LBON [facility] HEALTHUrea nitrogen (BldV) [Mass/Vol]18 mg/dL8 - 23 mg/dLBON [facility] CENTERGlucose [Mass/Vol]187 mg/jAMhml13 - 110 mg/dL [facility] CENTERLaboratory - Hematology and Cell countson 01-03-2022 Basophils (Bld) [#/Vol]0.00 10*3/uLBON [facility] MEDICAL CENTERBasophils/100 WBC (Bld)0 %0 - 2 %[facility]ALTH CENTEREosinophils/100 WBC (Bld)0 %Low1 - 4 %[facility] CENTERHematocrit (Bld) [Volume fraction]37.4 %Low40.7 - 50.3 %[facility] CENTERHemoglobin (Bld) [Mass/Vol]12.2 g/dLLow13.0 - 17.0 g/dLBON [facility]ENTERImmature granulocytes/100 WBC (Bld)0 %0B[facility] CENTERLymphocytes/100 WBC (Bld)4 %Low24 - 44 %[facility]H (RBC) [Entitic mass]26.9 pg25.2 - 33.5 pgBALLAD HEALTHHC (RBC) [Mass/Vol] 32.6 g/dL28.4 - 34.8 g/dLBON [facility]EL[facility] HOSPITALV (RBC) [Entitic vol]82.4 fL Low82.6 - 102.9 fLRIVERSIDE BEHAVIORAL HEALTH CENTERMonocytes/100 WBC (Bld)6 %1 - 7 %[facility] CENTERMorphology Walter (Bld) [Interp]MICROCYTOSIS PRESENTRIVERSIDE BEHAVIORAL HEALTH CENTERMorphology Walter (Bld) [Interp]ANISOCYTOSIS PRESENTRIVERSIDE BEHAVIORAL HEALTH CENTERMorphology Walter (Bld) [Interp]1+ ACANTHOCYTESRIVERSIDE BEHAVIORAL HEALTH CENTER Platelet distribution width (Bld) [Ratio]18.9 %High11.8 - 14.4 %[facility] HEALTH CENTERPlatelet mean volume (Bld) [Entitic vol]12.6 fL8.1 - [...] of laboratory resultsAbnormalBON [facility] MERCY HEALTHB[facility]ALTH Interpretation and review of laboratory [...] #0.88LowBON SECOURS MERCY HEALTHAbsolute [place] #1.33HighBON SECOURS [facility]ITALY HEALTHInterpretation and review of laboratory resultsAbnormalBON SECOURS [facility]Y HEALTHNRBC Automated0.00.0 per 100 WBCBON SECOURS MERCY HEALTHSegs Jdprxxuu48.89 HighBON SECOURS MERCY HEALTHBON [facility] HEALTHGFR >60>60 mL/minBON [facility]RS MERCY HEALTHGFR Non->60>60 mL/minBON [facility]RS MERCY HEALTHInterpretation and review of laboratory resultsAbnormalBON [facility] MERCY HEALTHB[facility] HEALTHInterpretation and review of laboratory resultsAbnormalBON [facility] HEALTHBON [facility]Y HEALTHInterpretation and review of laboratory resultsAbnormalBON [facility] MERCY HEALTHB[facility] HEALTHGFR >60>60 mL/minBON [facility] MERCY HEALTHGFR Non- >60>60 mL/minBON [facility] MERCY HEALTHInterpretation and review of laboratory resultsAbnormalBON SECOURS [facility]ITALY HEALTHB[facility] Interpretation and review of laboratory resultsAbnormalBON [facility]OUTH HEALTHPhosphorus, Inorg.on [id number], Inorg.3.3 mg/dLNormal2.5-4.5[facility] HospitalComment on above:Performed By: #### CDP, MELVIN, BMPX, IPF #### [employer] [address] [place] [address] Fine Craft Artist: DENISE Brandonhosphorus, Inorg.2.9 mg/dLNormal2.5-4.5[facility] HospitalComment on above:Performed By: #### CDP #### [facility] [address] [place], [place] [id number] Fine Craft Artist: DENISE Brandonhosphorus, Inorg.3.5 mg/dLNormal2.5-4.5[facility] HospitalComment on above:Performed By: #### CDP, MELVIN, BMPX, IPF #### [facility] [address] [place] [id number] Fine Craft Artist: Eliane Brandonsphokhari, Inorg.3.1 mg/dLNormal2.5-4.5[facility] HospitalComment on above:Performed By: #### CDP, MELVIN, BMPX, IPF #### [facility] [address] [place] [address] Fine Craft Artist: Eliane Brandonsphostephs, Inorg.2.5 mg/dLNormal2.5-4.5[facility] HospitalComment on above:Performed By: #### CDP, MELVIN, BMPX, IPF #### [facility] [address] [place], [place] [id number] Fine Craft Artist: GAGE BrandonR ABDOMEN FOR NG/OG/NE TUBE PLACEMENTon [id number] ABDOMEN FOR NG/OG/NE TUBE PLACEMENTEXAMINATION: ONE SUPINE [...] Signed by: Eulogio Winslow MD 01/02/22 Final resultNormalMercy Health Tiffin HospitalAMYLASEon [id number] [Catalytic activity/Vol]13 U/LCritically oai68-709SwuCrystal Clinic Orthopedic CenterComment on above:Performed By: #### LIPA, MARGA, LIVER, BMP #### [facility] [address] [place], [place] [address] Dr. Kylee Christiansen Metabolic Profon [id number] [Mass/Vol]452 mg/dL Critically jisl54-20Orxdc [facility] CenterComment on above:Performed By: #### CDP #### [facility] HospitalTermScout [address] [place] [phone] Fine Craft Artist: Francisco J Fonseca MD(cont.)[facility] Comment on above:Result Comment: Average GFR for 70 or more years old: 75 mL/min/1.73sq m Chronic Kidney Disease: <60 mL/min/1.73sq m Kidney failure: <15 mL/min/1.73sq m eGFR calculated using average adult body mass. Additional eGFR calculator available at: http://www.Orphazyme/multiple_crcl_2012.htmPerformed By: #### CDP #### [facility] [address] [place] [phone] Fine Craft Artist: Francisco J Fonseca MDAnion gap [Moles/Vol]12 mmol/LNormal9-17[facility]iff[facility] HospitalComment on above:Performed By: #### CDP #### [facility] [address] [place] [phone] Fine Craft Artist: Francisco J Fonseca MDCalcium [Mass/Vol]8.6 mg/dLNormal8.6-10.4[facility] HospitalComment on above:Performed By: #### CDP #### [facility] [employer] [address] [place] [phone] Fine Craft Artist: Francisco J Fonseca MDChloride [Moles/Vol]96 mmol/TTrx48-937EehtwMercy Health Tiffin HospitalComment on above:Performed By: #### CDP #### [facility] [employer] [address] [place] [phone] Fine Craft Artist: Francisco J Fonseca MDCO2 [Moles/Vol]22 mmol/KEdvxqb64-87EpwfpMercy Health Tiffin HospitalComment on above:Performed By: #### CDP #### [facility] [employer] [address] [place] [phone] Fine Craft Artist: MARLENY Brandonreatinine [Mass/Vol]0.81 mg/dLNormal0.70-1.20 [facility] HospitalComment on above:Performed By: #### CDP #### [address] [address] Fine Craft Artist: Francisco J Fonseca MDGFR, Amer>60Normal>60MerSutter Delta Medical CenterComment on above:Performed By: #### CDP #### [address] [address] Fine Craft Artist: ARTURO Brandon,non Amer>60Normal>60[facility]iff[facility] HospitalComment on above:Performed By: #### CDP #### [address] [address] Fine Craft Artist: DENISE Brandonotassium [Moles/Vol]4.1 mmol/LNormal3.7-5.3 [facility] HospitalComment on above:Performed By: #### CDP #### [address] [address] Fine Craft Artist: MEIR Brandonodium [Moles/Vol]130 mmol/CRor735-437UjictMercy Health Tiffin HospitalComment on above:Performed By: #### CDP #### [address] [address] Fine Craft Artist: Francisco J Fonseca MDUrea nitrogen [Mass/Vol]19 mg/dLNormal8-23[facility]iffin HospitalComment on above:Performed By: #### CDP #### [address] [address] Fine Craft Artist: MARLENY BrandonBC AUTO DIFFon [id number] #0.0 103/ulNormal 0.0-0.1[facility] Orthopedic CenterComment on above:Performed By: #### CMP, LIPID #### [facility] [address] [place] [address] Dr. Kylee BunchBasophils/100 WBC (Bld)0.2 %Normal0.2-2.0The [facility] Comment on above:Performed By: #### CMP, LIPID #### [facility] [address] [place] [address] Dr. Kylee Del Castillo #0.1 103/ulNormal0.0-0.7The [facility] HospitalComment on above: Performed By: #### CMP, LIPID #### [facility] [address] [place] [address] Dr. Kylee Steinbergosinophils/100 WBC (Bld)0.5 %Critically low0.9-7.0The [facility] HospitalComment on above:Performed By: #### CMP, LIPID #### [facility] [address] [place] [address] Dr. Kylee Steinbergrythrocyte distribution width (RBC) [Ratio]18.5 %Critically high 11.0-15.0The [facility] HospitalComment on above:Performed By: #### CMP, LIPID #### [facility] [address] [place] [address] Dr. Kylee BunchHematocrit (Bld) [Volume fraction]37.0 %Critically low42.0-54.0 The [facility] HospitalComment on above:Performed By: #### CMP, LIPID #### [facility] [address] [place] [address] Dr. Kylee BunchHemoglobin (Bld) [Mass/Vol]12.6 g/dLCritically low14.0-18.0The [facility] HospitalComment on above:Performed By: #### CMP, LIPID #### [facility] [address] [place] [address] Dr. Kylee Mckoy #0.02 10e3/ulNormal0.00-0.03The [facility] HospitalComment on above:Performed By: #### CMP, LIPID #### [facility] [address] [place] [address] Dr. Kylee Mckoy %0.2 %Normal0.0-0.5The [facility] HospitalComment on above: Performed By: #### CMP, LIPID #### [facility] [address] [place] [address] Dr. Kylee Jones #1.2 103/ulNormal1.2-3.8The [facility] HospitalComment on above:Performed By: #### CMP, LIPID #### [facility] [address] [place] [address] Dr. Kylee Casashocytes/100 WBC (Bld)11.3 %Critically low20.5-60.0The [facility] HospitalComment on above:Performed By: #### CMP, LIPID #### [facility] [address] [place] [address] Dr. Kylee BauerUAL DIFF REQNONormalThe [facility] HospitalComment on above: Performed By: #### CMP, LIPID #### [facility] [address] [place] [address] Dr. Kylee Beasley (RBC) [Entitic mass]27.1 vuGrumjg68.9-34.0The [facility] HospitalComment on above:Performed By: #### CMP, LIPID #### [facility] [address] [place] [address] Dr. Kylee Beasley (RBC) [Mass/Vol]34.1 g/dXKyhikl65.9-35.2The [facility] HospitalComment on above:Performed By: #### CMP, LIPID #### [facility] [address] [place] [address] Dr. Kylee Beasley (RBC) [Entitic vol]79.6 fLCritically low80.0-94.0The [facility] HospitalComment on above:Performed By: #### CMP, LIPID #### [facility] [address] [place] [address] Dr. Kylee Abarca #0.5 103/ulNormal0.3-0.8The [facility] HospitalComment on above:Performed By: #### CMP, LIPID #### [facility] [address] [place] [address] [address] Kylee Mirelesocytes/100 WBC (Bld)4.5 %Normal1.7-12.0The [facility] Comment on above:Performed By: #### CMP, LIPID #### [facility] [address] [place] [address] Dr. Kylee Shook #8.5 103/ulCritically high1.4-6.5The [facility] Comment on above:Performed By: #### CMP, LIPID #### [facility] [address] [place] [address] Dr. Kylee Martinutrophils/100 WBC (Bld)83.3 %Critically high43.0-75.0The [facility] HospitalComment on above:Performed By: #### CMP, LIPID #### [facility] [address] [place] [address] Dr. Kylee BunchPlatelet mean volume (Bld) [Entitic vol]12.6 fLNormal9.5-13.5The [facility] HospitalComment on above:Performed By: #### CMP, LIPID #### [facility] [address] [place] [address] Dr. Kylee BunchPLT335 103/urFshdpw830-696Aia [facility] HospitalComment on above: Performed By: #### CMP, LIPID #### [facility] [address] [place] [address] Dr. Kylee BunchRBC4.65 106/ulCritically low4.70-6.10The [facility] HospitalComment on above:Performed By: #### CMP, LIPID #### [facility] [address] [place] [address] Dr. Kylee BunchWBC10.2 103/ulNormal4.0-11.0The [facility] HospitalComment on above:Performed By: #### CMP, LIPID #### [facility] [address] [place] [address] Dr. Kylee Locke with Diffon [id number]. Basophil0.00 k/uLNormal0.00-0.20 [facility] HospitalComment on above:Performed By: #### CDP, MELVIN, BMPX, IPF #### [place] [address] Fine Craft Artist: MDAbs. RomaImm.Granulocyte0.00 k/uLNormal0.00-0.30[facility] HospitalComment on above:Performed By: #### CDP, MELVIN, BMPX, IPF #### [place] [address] Fine Craft Artist: Vidhya Brandon.Neutrophil (Seg)19.47 k/uLHigh1.50-8.10[facility] HospitalComment on above:Performed By: #### CDP, MELVIN, BMPX, IPF #### [place] [address] Fine Craft Artist: Francisco J Fonseca MDBasophils/100 WBC (Bld)0 %Normal0-2MLoma Linda University Children's HospitalComment on above:Performed By: #### CDP, MELVIN, BMPX, IPF #### [place] [address] Fine Craft Artist: Francisco J Fonseca MDEosinophils (Bld) [#/Vol]0.00 10*3/uLNormal 0.00-0.44[facility] HospitalComment on above:Performed By: #### CDP, MELVIN, BMPX, IPF #### [address] [address] Fine Craft Artist: Francisco J Fonseca MDEosinophils/100 WBC (Bld)0 %Low1-4[facility] HospitalComment on above:Performed By: #### CDP, MELVIN, BMPX, IPF #### [address] [address] Fine Craft Artist: Mark Brandonture granulocytes/100 WBC (Bld)0 %Normal0 [facility] HospitalComment on above:Performed By: #### CDP, MELVIN, BMPX, IPF #### [facility] [address] [place] [address] Fine Craft Artist: Francisco J Fonseca MDLymphocytes (Bld) [#/Vol]0.41 10*3/uLLow 1.10-3.70[facility] HospitalComment on above:Performed By: #### CDP, MELVIN, BMPX, IPF #### [facility] [address] [place] [address] Fine Craft Artist: Jeremie Brandonmphocytes/100 WBC (Bld)2 %Uba97-06BtcgsMercy Health Tiffin HospitalComment on above:Performed By: #### CDP, MELVIN, BMPX, IPF #### [address] [address] Fine Craft Artist: MARK Brandononocytes (Bld) [#/Vol]0.62 10*3/uLNormal 0.10-1.20[facility] HospitalComment on above:Performed By: #### CDP, MELVIN, BMPX, IPF #### [facility] [address] [place] [address] Fine Craft Artist: MARK Brandononocytes/100 WBC (Bld)3 %Normal3-12[facility] HospitalComment on above:Performed By: #### CDP, MELVIN, BMPX, IPF #### [facility] [address] [place] [address] Fine Craft Artist: MARK Brandonorphology Walter (Bld) [Interp]ANISOCYTOSIS PRESENTNormalMercy Health Tiffin HospitalComment on above:Performed By: #### CDP, MELVIN, BMPX, IPF #### [facility] [employer] [address] [place] [address] Fine Craft Artist: Francisco J Madoff, MDNeutrophil (Seg)95 %Yjyt18-14XvvuuMercy Health Tiffin HospitalComment on above:Performed By: #### CDP, MELVIN, BMPX, IPF #### [facility] [employer] [address] [place] [address] Fine Craft Artist: Francisco J Fonseca MDErythrocyte distribution width (RBC) [Ratio]18.3 %High11.8-14.4[facility] HospitalComment on above:Performed By: #### CDP, MELVIN, BMPX, IPF #### [facility] [employer] [address] [place] [phone] Fine Craft Artist: Francisco J Fonseca MDHematocrit (Bld) [Volume fraction]38.9 %Low 40.7-50.3MLoma Linda University Children's HospitalComment on above:Performed By: #### CDP, MELVIN, BMPX, IPF #### [facility] [employer] [address] [place] [address] Fine Craft Artist: Francisco J Fonseca MDHemoglobin (Bld) [Mass/Vol]12.9 g/dLLow13.0-17.0 [facility] HospitalComment on above:Performed By: #### CDP, MELVIN, BMPX, IPF #### [facility] [employer] [address] [place] [address] Fine Craft Artist: MARK BrandonCH (RBC) [Entitic mass]26.9 nhSndejf06.2-33.5 [facility] HospitalComment on above:Performed By: #### CDP, MELVIN, BMPX, IPF #### [facility] [employer] [address] [place] [phone] Fine Craft Artist: MARK BrandonCHC (RBC) [Mass/Vol]33.2 g/fGIstkxr45.4-34.8 [facility] HospitalComment on above:Performed By: #### CDP, MELVIN, BMPX, IPF #### [facility] [employer] [address] [place] [phone] Fine Craft Artist: MARK BrandonCV (RBC) [Entitic vol]81.2 fLLow82.6-102.9[facility] HospitalComment on above:Performed By: #### CDP, MELVIN, BMPX, IPF #### [address] [address] Fine Craft Artist: SONIA Brandon Automated0.0 per 100 WBCNormal0.0[facility] Tiff[facility] HospitalComment on above:Performed By: #### CDP, MELVIN, BMPX, IPF #### [address] [address] Fine Craft Artist: Meera Brandon mean volume (Bld) [Entitic vol]12.4 fL Normal8.1-13.5[facility] HospitalComment on above:Performed By: #### CDP, MELVIN, BMPX, IPF #### [facility] [employer] [address] [place] [address] Fine Craft Artist: Cade Brandon (Bld) [#/Vol]324 10*3/zJZwhrtq450-837 [facility] HospitalComment on above:Performed By: #### CDP, MELVIN, BMPX, IPF #### [facility] [employer] [address] [place] [address] Fine Craft Artist: YOLA Brandon (Bld) [#/Vol]4.79 10*6/uLNormal4.21-5.77 [facility] HospitalComment on above:Performed By: #### CDP, MELVIN, BMPX, IPF #### [facility] [employer] [address] [place] [address] Fine Craft Artist: PABLO Brandon (Bld) [#/Vol]20.5 10*3/uLHigh3.5-11.3MLoma Linda University Children's HospitalComment on above:Performed By: #### CDP, MELVIN, BMPX, IPF #### [employer] [address] [place] [address] Fine Craft Artist: Francisco J Fnoseca, MDCT ABD/PELV W CONon [id number] ABD/PELV W CON EXAMINATION: CT ABD/PELV W [...] identified. Background diffuse body wall edema with mmrrz-dd-vlpzrcuq volume of abdominal and pelvic ascites noted. [...] 9:09 AM on 01/02/2022. Electronically authenticated by: TivraH Date: 2022-01-02 09:27[facility] HealthCovid-19 PCR (CVDTB)on [id number]-CoV-2 (COVID-19) RNA ANASTASIA+probe Ql (Unsp spec)Not detectedNormalNOT DETECTEDThe [facility] Comment on above:Result Comment: When [...] for this test is supported by the [place] of [employer]'s declaration that [...] longer be used).Performed By: #### CVDTBH #### [facility] [address] [place] [address] Dr. Kylee Forbes URINE PROFILEon [id number] Ql (U)NegativeNormal NEGATIVECrystal Clinic Orthopedic CenterComment on above:Performed By: #### CMP, LIPID #### [facility] [address] [place] [address] Dr. Kylee Bricenoarity (U)CLEARNormalCLEARCrystal Clinic Orthopedic CenterComment on above: Performed By: #### CMP, LIPID #### [facility] [address] [place] [address] Dr. Kylee De La Garza (U)LT. YELLOWNormalYELLOWCrystal Clinic Orthopedic CenterComment on above:Performed By: #### CMP, LIPID #### [facility] [address] [place] [address] Dr. Kylee Moe micrscopic examination will be performed if indicated. NormalCrystal Clinic Orthopedic CenterComment on above:Performed By: #### CMP, LIPID #### [facility] [address] [place] [address] Dr. Kylee BunchHemoglobin Ql (U)TRACE-INTACTAbnormalNEGATIVECrystal Clinic Orthopedic CenterComment on above:Performed By: #### CMP, LIPID #### [facility] [address] [place] [address] Dr. Kylee BunchKetones Ql (U)15 mg/dlAbnormalNEGATIVEThe [facility] Comment on above:Performed By: #### CMP, LIPID #### [facility] [address] [address] [address] Kylee BunchLEUKOCYTESNegativeNormalNEGATIVEThe [facility] Memorial HospitalComment on above:Performed By: #### CMP, LIPID #### [facility] [address] [address] [address] Kylee Royaltrite Ql (U)NegativeNormalNEGATIVEThe [facility] HospitalComment on above:Performed By: #### CMP, LIPID #### [facility] [address] [address] [address] Kylee BunchpH (U)5.5 [pH]Normal5-9The [facility] HospitalComment on above: Performed By: #### CMP, LIPID #### [facility] [address] [place] [address] Dr. Kylee BunchSPEC GRAVITY1.586Xasfrf0.005-<=1.025The [facility] Memorial HospitalComment on above:Performed By: #### CMP, LIPID #### [facility] [address] [place] [address] Dr. Kylee Rodas PROTEINNegativeNormalNEGATIVE/ TRACEThe [facility] Comment on above:Performed By: #### CMP, LIPID #### [facility] [address] [place] [address] Dr. Kylee Mae MICRO INDINDICATEDNormalThe [facility] HospitalComment on above: Performed By: #### CMP, LIPID #### [facility] [address] [place] [address] Dr. Kylee Correiabilinogen Qn (U)0.2 {Gemiin'U}/dLNormal0.2 - 1.0The [facility] HospitalComment on above:Performed By: #### CMP, LIPID #### [facility] [address] [place] [address] Dr. Kylee JhaASEon 36-49-8550Gtjfyv [Catalytic activity/Vol]9.0 U/L Critically low73.0-393.0The [facility] HospitalComment on above:Performed By: #### LIPA, MARGA, LIVER, BMP #### [facility] [address] [place] [address] Dr. Kylee Narayan PROFILEon 63-01-7486Ppotozm [Mass/Vol]3.3 g/dLCritically low3.4-5.0The [facility] HospitalComment on above:Performed By: #### LIPA, MARGA, LIVER, BMP #### [facility] [address] [place] [address] Dr. Kylee BunchAlbumin/Globulin [Mass ratio]0.9 {ratio}NormalThe [facility] HospitalComment on above:Performed By: #### LIPA, MARGA, LIVER, BMP #### [facility] [address] [place] [address] Dr. Kylee Forman [Catalytic activity/Vol]116 U/HKbardk34-512Tkg [facility] HospitalComment on above:Performed By: #### LIPA, MARGA, LIVER, BMP #### [facility] [address] [place] [address] Dr. Kylee Shelton [Catalytic activity/Vol]21 U/MUntkvk73-61Kqp [facility] HospitalComment on above:Performed By: #### LIPA, MARGA, LIVER, BMP #### [facility] [address] [place] [address] Dr. Kylee Mccormack [Catalytic activity/Vol]24 U/YZsgmiw53-76Wie [facility] on above:Performed By: #### LIPA, MARGA, LIVER, BMP #### [facility] [address] [place] [address] Dr. Kylee Calhoun, CONJUGATED0.1 mg/dLNormal0.0-0.2The [facility] Comment on above:Performed By: #### LIPA, MARGA, LIVER, BMP #### [facility] [address] [place] [address] Dr. Kylee Santoirubin [Mass/Vol]0.6 mg/dLNormal0.2-1.0The [facility] Comment on above:Performed By: #### LIPA, MARGA, LIVER, BMP #### [facility] [address] [place], [place] [address] Dr. Kylee BunchGlobulin (S) [Mass/Vol]3.6 g/dLNormalThe [facility] HospitalComment on above:Performed By: #### LIPA, MARGA, LIVER, BMP #### [facility] [address] [place], [place] [address] Dr. Kylee BunchProtein [Mass/Vol]6.9 g/dLNormal6.4-8.2The [facility] Comment on above:Performed By: #### LIPA, MARGA, LIVER, BMP #### [facility] [address] [place], [place] [address] Dr. Kylee BunchLaboratory - Chemistry and Chemistry - challengeon 01-02-2022 Glucose [Mass/Vol]223 mg/dLBON OHIO[facility]OUTHEASTERN MEDICAL CENTERComment on above:The ADA and AACC recommend providing the estimated average glucose result to permit better patient understanding of their HBA1c result. Glucose [Mass/Vol]227 mg/qDYozq94 - 110 mg/dLBON [facility] HEALTHGlucose [Mass/Vol]290 mg/bSDach71 - 110 mg/dLBON [facility] HEALTHGlucose [Mass/Vol] 300 mg/fOUirq08 - 110 mg/dLBON [facility] HEALTHGlucose [Mass/Vol]323 mg/dL High75 - 110 mg/dLBON SECMEMORIAL HEALTH SYSTEMAnion gap [Moles/Vol]12 mmol/L9 - 17 mmol/LBON [facility] HEALTHCalcium [Mass/Vol]8.6 mg/dL8.6 - 10.4 mg/dLBON SECOCHSNER MEDICAL CENTER HEALTHChloride [Moles/Vol]96 mmol/LLow98 - 107 mmol/LBON [facility] HEALTHCO2 [Moles/Vol]22 mmol/L20 - 31 mmol/LBON [facility] Creatinine [Mass/Vol]0.81 mg/dL0.70 - 1.20 mg/dLBON SECOCEAN BEACH HOSPITALY HEALTHGFR/1.73 sq M.predicted MDRD (S/P/Bld) [Vol rate/Area]BON [facility]OUTHEASTERN MEDICAL CENTERComment on above:Average GFR for 70 or more years old: 75 mL/min/1.73sq m Chronic Kidney Disease: <60 mL/min/1.73sq m Kidney failure: <15 mL/min/1.73sq m eGFR calculated using average adult body mass. Additional eGFR calculator available at: http://www.Orphazyme/multiple_crcl_2012.htm Glucose [Mass/Vol]452 mg/dLCritically high70 - 99 mg/dLBON [facility] Potassium [Moles/Vol]4.1 mmol/L3.7 - 5.3 mmol/LBON [facility] SOUTHEASTERN MEDICAL CENTERSodium [Moles/Vol]130 mmol/ZVry721 - 144 mmol/LBON [facility] SOUTHEASTERN MEDICAL CENTERUrea nitrogen (BldV) [Mass/Vol]19 mg/dL8 - 23 mg/dLBON OH[facility]HEALTH SOUTHEASTERN MEDICAL CENTERAlbumin [Mass/Vol] 3.6 g/dL3.5 - 5.2 g/dLBON OH[facility] SOUTHEASTERN MEDICAL CENTERAlbumin/Globulin [Mass ratio]1.3 {ratio}BON OH[facility]HEALTH SOUTHEASTERN MEDICAL CENTERALP (Bld) [Catalytic activity/Vol]100 U/L40 - 129 U/LBON [facility] SOUTHEASTERN MEDICAL CENTERALT [Catalytic activity/Vol]15 U/L5 - 41 U/LBON [facility] SOUTHEASTERN MEDICAL CENTERAST [Catalytic activity/Vol]18 U/L<40BON [facility]OUTHEASTERN MEDICAL CENTERBilirubin [Mass/Vol]0.45 mg/dL0.3 - 1.2 mg/dLBON [facility] Bilirubin.indirect [Mass/Vol]0.17 mg/dL<0.31BON [facility]OUTHEASTERN MEDICAL CENTERFree PSA/Total PSA [Mass fraction]6.4 g/dL6.4 - 8.3 g/dLBON [facility] Glucose [Mass/Vol]433 mg/dLCritically high75 - 110 mg/dLBON [facility] Comment on above:Critical NotedLaboratory - Coagulationon [id number] Coag (Bld) [Relative time]1.2 {INR}[facility] CENTERComment on above: Therapeutic Range: Moderate Anticoagulant Intensity: INR = 2.0-3.0 High Anticoagulant Intensity: INR = 2.5-3.5 PT Coag (PPP) [Time]12.5 sHighBON OHIOHE[facility] SOUTHEASTERN MEDICAL CENTERLaboratory - Hematology and Cell countson 51-97-0567GtV4v (Bld) [Mass fraction]9.4 %High4.0 - 6.0 %BON [facility]OCHSN[facility] HEALTHBasophils (Bld) [#/Vol]0.00 10*3/uLBON [facility] Basophils/100 WBC (Bld)0 %0 - 2 %BON SECMEMORIAL HEALTH SYSTEMEosinophils/100 WBC (Bld)0 %Low1 - 4 %[facility] SECMEM[facility]IAL HEALTH SYSTEMHematocrit (Bld) [Volume fraction]38.9 %Low40.7 - 50.3 %BON [facility]ERN MEDICAL CENTERHemoglobin (Bld) [Mass/Vol]12.9 g/dLLow 13.0 - 17.0 g/dLBON SECMEMORIAL HEALTH SYSTEMImmature granulocytes/100 WBC (Bld)0 %0 [facility]ODLymphocytes/100 WBC (Bld)2 %Low24 - 43 %[facility]ALTHH (RBC) [Entitic mass]26.9 pg25.2 - 33.5 pgBON SECMERCY HEALTH CLERMONT HOSPITALHC (RBC) [Mass/Vol]33.2 g/dL28.4 - 34.8 g/dLBON SECMERCY HEALTH CLERMONT HOSPITALV (RBC) [Entitic vol]81.2 fLLow82.6 - 102.9 fLRIVERSIDE BEHAVIORAL HEALTH CENTER Monocytes/100 WBC (Bld)3 %3 - 12 %BON [facility]ERN MEDICAL CENTERMorphology Walter (Bld) [Interp]ANISOCYTOSIS PRESENTBON SECOCHSNER MEDICAL CENTER HEALTHPlatelet distribution width (Bld) [Ratio]18.3 %High11.8 - 14.4 %[facility]OCH[facility] HEALTHPlatelet mean volume (Bld) [Entitic vol]12.4 fL8.1 - 13.5 fLBON SECOCHSNER MEDICAL CENTER HEALTHPlatelets (Bld) [#/Vol]324 10*3/uLBON [facility]OURS [facility] HEALTHRBC (Bld) [#/Vol]4.79 10*6/uL4.21 - 5.77 m/uLBON SECMEMORIAL HEALTH SYSTEMSegmented neutrophils/100 WBC (Bld)95 %High36 - 65 %B[facility]MEMORIAL HEALTH SYSTEMWBC (Bld) [#/Vol]20.5 10*3/uLHighBON [facility], BEACH[facility]ODLactate, Sepsison 58-57-9861Drywqv Acid,Sep Wbld1.7 mmol/LNormal0.5-1.9 [facility]iffin HospitalComment on above:Performed By: #### CDP, MELVIN, BMPX, IPF #### [facility] [place] [address] Fine Craft Artist: Beatrice Brandon Profileon 43-27-0293[place] [Mass/Vol]3.6 g/dLNormal3.5-5.2MLoma Linda University Children's HospitalComment on above:Performed By: #### CDP #### [address] [address] Fine Craft Artist: Francisco J Fonseca MDAlbumin/Glob Ratio1.6Cxjtwb1.0-2.5[facility] Tiffin HospitalComment on above:Performed By: #### CDP #### [facility] [employer] [address] [place] [address] Fine Craft Artist: Angie Brandon Vdud134 U/RCxhyin70-152TcbwvMercy Health Tiffin HospitalComment on above:Performed By: #### CDP #### [facility] [employer] [address] [place] [address] Fine Craft Artist: Francisco J Fonseca MDALT [Catalytic activity/Vol]15 U/LNormal5-41 [facility] HospitalComment on above:Performed By: #### CDP #### [facility] [employer] [address] [place] [address] Fine Craft Artist: Francisco J Fonseca MDAST [Catalytic activity/Vol]18 U/LNormal<40[facility] HospitalComment on above:Performed By: #### CDP #### [facility] [employer] [address] [place] [phone] Fine Craft Artist: Francisco J Fonseca MDBilirubin [Mass/Vol]0.45 mg/dLNormal0.3-1.2Mparkwood hospitaly [facility] Faith HospitalComment on above:Performed By: #### CDP #### [facility] [employer] [address] [place] [address] Fine Craft Artist: Francisco J Fonseca MDBilirubin, Indirect0.28 mg/dLNormal0.00-1.00 [facility] HospitalComment on above:Performed By: #### CDP #### [facility] [employer] [address] [place] [address] Fine Craft Artist: Krishna Brandonirubin.indirect [Mass/Vol]0.17 mg/dLNormal <0.31[facility]iff[facility] HospitalComment on above:Performed By: #### CDP #### [address] [address] Fine Craft Artist: Francisco J Fonseca MDProtein [Mass/Vol]6.4 g/dLNormal6.4-8.3MLoma Linda University Children's HospitalComment on above:Performed By: #### CDP #### [address] [address] Fine Craft Artist: Farncisco J Fonseca MDNo Panel Informationon [id number] and review of laboratory resultsAbnormalBON SECOURS HEALTH SYSTEMInterpretation and review of laboratory resultsAbnormalBON SECOURS HEALTH SYSTEMEnteric tube needs to be advanced 10 cm. [facility] RIS CONSOLIDATEDEXAMINATION: ONE SUPINE XRAY [...] tube needs to be advanced 10 cm. [employer] Work Phone: Interpretation and review of laboratory results AbnormalBON LEW[facility] CLARK SPECIALTY HOSPITALInterpretation and review of laboratory resultsAbnormalBON SECOURS HEALTH SYSTEMRadiology Study observation (narrative)[employer] Work Phone: absolute Eos #0.00B[facility], BEACH[facility]ODAbsolute Immature Granulocyte0.00B[facility] HEALTHAbsolute Lymph #0.41LowBON SEC[facility]RS [facility] HEALTHAbsolute [place] #0.62BON SECHelloNature [facility] HEALTHInterpretation and review of laboratory resultsAbnormLewisGale Hospital MontgomeryNRBC Automated 0.00.0 per 100 WBCBON Centervillegs Hzrtrzwx25.47HighBON [address] HEALTHInterpretation and review of laboratory resultsAbnormalBON [facility]ALTH HEALTHInterpretation and review of laboratory resultsAbnormalBON SECOURS HEALTH SYSTEMLactic Acid, Sepsis, Whole Blood1.7 mmol/L0.5 - 1.9 mmol/LBON [address]CC[address] [facility] HEALTHGFR >60>60 mL/minINOVA ALEXANDRIA HOSPITAL HEALTHGFR Non->60>60 mL/minBAYRIDGE HOSPITALHelloNature [facility] HOSPITALY HEALTHInterpretation and review of laboratory resultsAbnormalBON SEC[facility] SECOCHSN[facility] HEALTHBilirubin, Indirect0.28 mg/dL0.00 - 1.00 mg/dLBON LEW[facility] AND CLARK SPECIALTY HOSPITALInterpretation and review of laboratory resultsAbnormalBON [facility] HOSPITALNo Panel InformationOrdered By: Eulogio Winslow on 14-48-3218DKN [facility] Work Phone: POINT OF CARE GLUCOSEon 15-59-6021Jkfhirj [Mass/Vol] 408 mg/dLCritically rcac04-678Uzx [facility] HospitalComment on above:Performed By: #### POCGLUC #### [facility] [address] [place] [address] Dr. Kylee BunchPROF CHEM 8 (BAS METB)on 39-93-9375Dpqtb gap [Moles/Vol]16.4 mmol/LNormalThe [facility] HospitalComment on above:Performed By: #### LIPA, MARGA, LIVER, BMP #### [facility] [address] [address] [address] Kylee BunchCalcium [Mass/Vol]8.8 mg/dLNormal8.5-10.1[facility] Comment on above:Performed By: #### LIPA, MARGA, LIVER, BMP #### [facility] [address] [address] [address] Kylee BunchChloride [Moles/Vol]96 mmol/LCritically iyo74-478Mku [facility] HospitalComment on above:Performed By: #### LIPA, MARGA, LIVER, BMP #### [facility] [address] [address] [address] Kylee BunchCO2 [Moles/Vol]25.1 mmol/NCdsiwk60.0-32.0[facility] Comment on above:Performed By: #### LIPA, MARGA, LIVER, BMP #### [facility] [address] [place] [address] Dr. Kylee BunchCreatinine [Mass/Vol]1.22 mg/dLNormal0.70-1.30The [facility] HospitalComment on above:Performed By: #### LIPA, MARGA, LIVER, BMP #### [facility] [address] [address] [address] Pichardo ChangEGFR-AF LUXEMBOURGER>60Normal>=60The [facility] HospitalComment on above:Performed By: #### LIPA, MARGA, LIVER, BMP #### [facility] [address] [address] [address] Kylee SteinbergGFR-NON AF PYQJWDHR63 mL/min/1.51w7Aqvamdhkov low>=60The [facility] HospitalComment on above:Performed By: #### LIPA, MARGA, LIVER, BMP #### [facility] [address] [address] [address] Kylee BunchGlucose [Mass/Vol]579 mg/dLCritically oiji36-679Xpf [facility] HospitalComment on above:Result Comment: repeatedPerformed By: #### LIPA, MARGA, LIVER, BMP #### [facility] [address] [place] [address] Dr. Kylee BunchPotassium [Moles/Vol]4.5 mmol/LNormal3.5-5.1The [facility] Comment on above:Performed By: #### LIPA, MARGA, LIVER, BMP #### [facility] [address] [address] [address] Kylee BunchSodium [Moles/Vol]133 mmol/LCritically aah466-100Vmd [facility] HospitalComment on above:Performed By: #### LIPA, MARGA, LIVER, BMP #### [facility] [address] [address] [address] Kylee BunchUrea nitrogen [Mass/Vol]19.0 mg/dLCritically high7.0-18.0The [facility] HospitalComment on above:Performed By: #### LIPA, MARGA, LIVER, BMP #### [facility] [address] [place] [address] Dr. Kylee Saenz nitrogen/Creatinine [Mass ratio]15.6 mg/mgNormalThe [facility] HospitalComment on above:Performed By: #### LIPA, MARGA, LIVER, BMP #### [facility] [address] [place] [address] Dr. Kylee Hernández [id number] Coag (PPP) [Relative time]1.2 {INR}NormalMercy [facility]utter Auburn Faith HospitalComment on above:Result Comment: Therapeutic Range: Moderate Anticoagulant Intensity: INR = 2.0-3.0 High Anticoagulant Intensity: INR = 2.5-3.5Performed By: #### CDP, MELVIN, BMPX, IPF #### [facility] [address] [place] [id number] Fine Craft Artist: SABINA Brandon Coag (PPP) [Time]12.5 sHigh9.1-12.3[facility] Faith HospitalComment on above:Performed By: #### CDP, MELVIN, BMPX, IPF #### [facility] HospitalTermScout [address] [place] [id number] Fine Craft Artist: ANNALISE Brandon MICROSCOPIC ONLYon 25-22-7024RPABVHLDAYYS SEENNormalNONE SEENCrystal Clinic Orthopedic CenterComment on above:Performed By: #### CMP, LIPID #### [facility] [address] [place] [address] Dr. Kylee Devlin identified Cx Nom (U)NOT INDICATEDNoKettering Health DaytonComdeckerville community hospital on above:Performed By: #### CMP, LIPID #### [facility] [address] [place] [address] Dr. Kylee Perry SEENNormalNONE SEENCrystal Clinic Orthopedic CenterComment on above:Performed By: #### CMP, LIPID #### [facility] [address] [address] [address] Kylee Montaño LM Nom (Urine sed)NONE SEENNormalNONE SEENCrystal Clinic Orthopedic CenterComdeckerville community hospital on above:Performed By: #### CMP, LIPID #### [facility] [address] [place] [address] Dr. Kylee Villarrealthelial cells LM Ql (Urine sed)RARENormalNONE SEEN /RARECrystal Clinic Orthopedic CenterComment on above:Performed By: #### CMP, LIPID #### [facility] [address] [address] [address] Kylee BunchMUCOUSNONOdalys SEENNormalNONE SEENCrystal Clinic Orthopedic CenterComment on above:Performed By: #### CMP, LIPID #### [facility] [address] [address] [address] Kylee BunchZhubhZKB9-5Qyilqt3-4Cok [facility] HospitalComment on above:Performed By: #### CMP, LIPID #### [facility] [address] [address] [address] Kylee BunchWBCNONE SEENNormalNONE SEENThe [facility] HospitalComment on above: Performed By: #### CMP, LIPID #### [facility] [address] [address] [address] Kylee Bunch Vital Signs Date TimeVital SignValuePerforming RjkpmxtfrNrmlhfrt27-34-4694 10:42-0400Body hixgtk764.34 cmRobert Vaschak DO Work Phone: [facility]10-29-2025 10:24-0400 Body mass index (BMI) [Ratio]18.9 kg/z5Fikzqi Vaschak DO Work Phone: [facility]10-29-2025 10:24-0400 Body xeksbd00.68 kgRobert Vaschak DO Work Phone: [facility]10-29-2025 10:24-0400 Diastolic blood awkajxbr58 mm[Hg]Marie Vaschak DO Work Phone: [facility]10-29-2025 10:24-0400 Respiratory rate18 /minRobert Vaschak DO Work Phone: [facility]10-29-2025 10:24-0400 Systolic blood mtryerji725 mm[Hg]Marie Vaschak DO Work Phone: [facility]10-22-2025 09:45-0400 Body mass index (BMI) [Ratio]20.09 kg/m2Amy Warchol RESCUE WORKER Work Phone: [facility] CenterAvdjkzlxga28-19-1629 09:45-0400Body ctmtee61.5 kg Marga Robledo RESCUE WORKER Work Phone: [facility] CenterWgvuiwyclg90-69-4873 09:45-0400Diastolic blood rudtidfk86 mm[Hg]Marga Robledo RESCUE WORKER Work Phone: [facility] CenterPlymuilqqw55-42-5447 09:45-0400Heart rate61 /min Marga Davischol RESCUE WORKER Work Phone: [facility] CenterMasvgdburc62-14-0257 09:45-6580UdH9% (BldA) [Mass fraction]96 %Marga Robledo RESCUE WORKER Work Phone: [facility] CenterRizlkxljoq17-16-4568 09:45-0400Systolic blood itnjtjdu308 mm[Hg]Marga Robledo RESCUE WORKER Work Phone: [facility] CenterLepqieyagb04-50-9775 10:08-0400Body womvfz344.8 cmRobert Vaschak DO Work Phone: [phone] [place], [place] 3916709-16-2025 10:08-0400 Body mass index (BMI) [Ratio]19.5 kg/s6Pwsovx Vaschak DO Work Phone: [phone] [place], [place] 3916709-16-2025 10:08-0400 Body .68 kgRobert Vaschak DO Work Phone: [address] [place], [place] 4820509-16-2025 10:08-0400 Diastolic blood vhjixabk81 mm[Hg]Marie Vaschak DO Work Phone: [phone] [place], [place] 3916709-16-2025 10:08-0400 Heart rate80 /minRobert Vaschak DO Work Phone: [facility]09-16-2025 10:08-0400 Respiratory rate18 /minRobert Vaschak DO Work Phone: [phone]09-16-2025 10:08-0400 SaO2% (BldA) [Mass fraction]98 %Marie Vaschak DO Work Phone: [phone]09-16-2025 10:08-0400 Systolic blood mm[Hg]Marie Tejeda DO Work Phone: [facility]06-24-2025 11:38-0400 Body gmkvme229.8 cmRoberleeann Tejeda DO Work Phone: [address] [place], [place] [address]Gprczkiydm85-08-5650 11:38-0400Body mass index (BMI) [Ratio]19.8 kg/c4Kxfpzumarsha Tejeda DO Work Phone: [address] [place], [place] [address]Hydhncgkzj21-28-3005 11:38-0400Body gnqocr72.6 kg Marie Tejeda DO Work Phone: [address] [place], [place] [address]Vumedkeepe45-28-7795 11:38-0400Diastolic blood emamihvc39 mm[Hg]Marie Tejeda DO Work Phone: [phone] [place], [place] [address]Mrsxpucxyx30-34-5736 11:38-0400Heart rate64 /min Marie Tejeda DO Work Phone: [phone] CenterBjgpmudssr72-49-4312 11:38-6907ZfE9% (BldA) [Mass fraction]96 %Marie Tejeda DO Work Phone: [phone] CenterUmdegzzpxe27-08-8912 11:38-0400Systolic blood xfmxhujs270 mm[Hg]Marie Tejeda DO Work Phone: [phone] CenterKucyfjauto18-65-5680 12:09-0400Body ytasfq787.8 cmAyana Zavala APRN.SHIRT HEMMER Work Phone: [facility]04-17-2025 12:09-0400Body mass index (BMI) [Ratio]19.3 kg/j6KhyqgnvAyana Zavala APRN.SHIRT HEMMER Work Phone: [facility]04-17-2025 12:09-0400Body ykvncg24 kg Ayana Zavala APRN.[employer] HEMMER Work Phone: [facility]04-17-2025 12:09-0400Diastolic blood aydlqwux53 mm[Hg]Ayana Zavala CLINICAL LAB CLERK.[employer] HEMMER Work Phone: [phone] 12:09-0400Heart rate60 /min Ayana Souleymane CLINICAL LAB CLERK.SH[employer] HEMMER Work Phone: [phone] 12:09-3140QuN6% (BldA) [Mass fraction]99 %Ayana Zavala CLINICAL LAB CLERK.SHIRT HEMMER Work Phone: [phone] 12:09-0400Systolic blood ypsrkrwd454 mm[Hg]Ayana Souleymane CLINICAL LAB CLERK.[employer] HEMMER Work Phone: [phone] 14:27-0400Body mass index (BMI) [Ratio]19.96 kg/c0Dftselz Souleymane CLINICAL LAB CLERK.SHIRT HEMMER Work Phone: [phone] 14:27-0400Body sdyccq57.1 kgAyana Zavala CLINICAL LAB CLERK.[employer] H[employer]MER Work Phone: [phone] 14:27-0400Diastolic blood hzgbukxb41 mm[Hg]Ayana Souleymane CLINICAL LAB CLERK.[employer] H[employer]MER Work Phone: [phone] 14:27-0400Heart rate60 /min Ayana Souleymane CLINICAL LAB CLERK.SH[employer] HEMMER Work Phone: [phone] 14:27-8150KxR5% (BldA) [Mass fraction]100 %Ayana Zavala CLINICAL LAB CLERK.SHIRT HEMMER Work Phone: [phone] 14:27-0400Systolic blood mm[Hg]Ayana Zavala CLINICAL LAB CLERK.SH[employer] HEMMER Work Phone: [phone] 10:15-0500Body unaxoe613.8 cmRobert Vaschak DO Work Phone: [facility]02-20-2025 10:15-0500 Body mass index (BMI) [Ratio]20 kg/p8Rvfivy Vaschak DO Work Phone: [facility]02-20-2025 10:15-0500 Body sjoodj67.5 kgRobmarsha Tejeda DO Work Phone: [facility]02-20-2025 10:15-0500 Diastolic blood raorzasr28 mm[Hg]Marie Tejeda DO Work Phone: [facility]02-20-2025 10:15-0500 Heart rate60 /minRobmarsha Yunk DO Work Phone: [address] [place], [place] 4820502-20-2025 10:15-0500 Respiratory rate18 /minRobert Ileana DO Work Phone: 4(585)961-[address] [place], [place] 3916702-20-2025 10:15-0500 SaO2% (BldA) [Mass fraction]97 %Marie Tejeda DO Work Phone: [facility]02-20-2025 10:15-0500 Systolic blood txuteitt735 mm[Hg]Marie Tejeda DO Work Phone: [facility]02-19-2025 13:54-0500 Diastolic blood gwrdexmo69 mm[Hg]Marie Tejeda DO Work Phone: [facility] CenterXlrrsymkfk75-02-0622 13:54-0500Systolic blood tvohdjxx433 mm[Hg]Marie Tejeda DO Work Phone: [facility] CenterWrsvrwoeyx57-14-4538 13:50-0500Heart rate61 /min Marie Tejeda DO Work Phone: [facility] CenterDnfvekltlg96-62-2864 13:50-9290VtR1% (BldA) [Mass fraction]98 %Marie Tejeda DO Work Phone: [facility] CenterXicggkgcpz45-48-8882 10:13-0500Body mass index (BMI) [Ratio]21.24 kg/u0Zawjzqw Chiki RESCUE WORKER Work Phone: [facility] CenterVorkzurvvu97-01-5088 10:13-0500Body vxsehj94.13 kgCaitlin Chiki RESCUE WORKER Work Phone: [facility] CenterZczbpxemto02-19-5899 10:13-0500Diastolic blood lpwvmirr50 mm[Hg]Yomi Chong RESCUE WORKER Work Phone: [facility] CenterPaamaauwuh27-78-5054 10:13-0500Heart rate74 /min Yomi Chong RESCUE WORKER Work Phone: [facility] CenterAebrmcmrep88-24-4894 10:13-8423DkB8% (BldA) [Mass fraction]92 %Yomi Chong RESCUE WORKER Work Phone: [facility] CenterYvwhhhsgqh54-77-9698 10:13-0500Systolic blood rvphusss219 mm[Hg]Yomi Chong RESCUE WORKER Work Phone: [facility] CenterRpqxzobwer65-56-9003 13:57-0500Diastolic blood uabsnlir16 mm[Hg]Marie Vaschak DO Work Phone: 0(456)848-[address] [place], [place] 3916701-06-2025 13:57-0500 Systolic blood uorklczt709 mm[Hg]Marie Vaschak DO Work Phone: 1(696)489-[address] [place], [place] 3916701-06-2025 13:17-0500 Body xthocd641.8 cmRobert Vaschak DO Work Phone: 1(283)630-[address] [place], [place] 3916701-06-2025 12:03-0500 Body fteypnqftte87.1 [degF]Marie Vaschak DO Work Phone: 3(442)196-[address] [place], [place] 3916701-06-2025 12:03-0500 Heart rate60 /minRobert Vaschak DO Work Phone: 8(120)735-[address] [place], [place] 3916701-06-2025 12:03-0500 Respiratory rate12 /minRobert Vaschak DO Work Phone: 7(602)794-[address] [place], [place] 3916701-06-2025 12:03-0500 SaO2% (BldA) [Mass fraction]95 %Marie Vaschak DO Work Phone: 1(420)825-[address] [place], [place] 3916701-06-2025 03:36-0500 Body tjhygy316.8 cmRobert Vassunithak DO Work Phone: 4(723)995-[address] [place], [place] 3916701-06-2025 03:36-0500 Body lpixuacjxwu47.6 [degF]Marie Vaschak DO Work Phone: 9(656)[address]01-06-2025 03:36-0500 Body olrcrm76.5 kgRobert Vaschak DO Work Phone: 1(368)50621 [address]01-06-2025 03:36-0500 Diastolic blood mm[Hg]Marie Vassunithak DO Work Phone: 2(662)23221 [address]01-06-2025 03:36-0500 Heart rate61 /minRobert Vaschak DO Work Phone: 1(764)[address]01-06-2025 03:36-0500 Respiratory rate15 /minRobert Vaschak DO Work Phone: 8(256)5-[address] [place], [place] 3916701-06-2025 03:36-0500 SaO2% (BldA) [Mass fraction]91 %Marie Tejeda DO Work Phone: 8(052)1-[address] [place], [place] 3916701-06-2025 03:36-0500 Systolic blood yzxtymhx376 mm[Hg]Marie Yunk DO Work Phone: 2(910)[address] [place], [place] 3916712-26-2024 11:15-0500 Body mass index (BMI) [Ratio]21.61 kg/l1VndhtafAyana Zavala APRN.SHIRT HEMMER Work Phone: [facility]12-26-2024 11:15-0500Body .3 kgAyana Zavala APRN.SHIRT HEMMER Work Phone: 9(010)-7113[facility]12-26-2024 11:15-0500Diastolic blood kfowwhjc62 mm[Hg]Ayana Zavala APRN.SH[employer] HEMMER Work Phone: 4(310)-4466[facility]12-26-2024 11:15-0500Heart rate60 /min Ayana Zavala APRN.SH[employer] HEMMER Work Phone: [facility]12-26-2024 11:15-0500Systolic blood qsdjimmo679 mm[Hg]Ayana Zavala SHIRT HEMMER Work Phone: [facility]12-23-2024 09:23-0500Body cummcg537.8 cmAilya Oh MD Work Phone: [facility] CenterJxdevhuobp60-04-2168 09:23-0500Body mass index (BMI) [Ratio]20.37 kg/h0CpahmvBeto Oh MD Work Phone: [facility] CenterIaoixnbeof76-94-4927 09:23-0500Body ptyhht03.41 kgBeto Oh MD Work Phone: [facility] CenterMhigbuildx03-69-5900 12:00-0500Body temperature 97.6 [degF]Marie Xavichak DO Work Phone: [facility]12-11-2024 12:00-0500 Diastolic blood pswvnylj32 mm[Hg]Marie Vaschak DO Work Phone: 1(554)285-[address] [place], [place] 3916712-11-2024 12:00-0500 Heart rate68 /minRobert Vaschak DO Work Phone: 8(280)7-08[facility]12-11-2024 12:00-0500 Respiratory rate16 /minRobert Vaschak DO Work Phone: [facility]12-11-2024 12:00-0500 SaO2% (BldA) [Mass fraction]98 %Marie Vaschak DO Work Phone: 0(690)818-63[facility]12-11-2024 12:00-0500 Systolic blood ojrrnnkr141 mm[Hg]Marie Vaschak DO Work Phone: 9(541)745-85[facility]12-11-2024 06:00-0500 Body .6 kgRobert Vaschak DO Work Phone: 6(391)128-74[facility]12-10-2024 12:12-0500 Body foceck151.34 cmRoberleeann Vassunithak DO Work Phone: 1(531)[address]12-09-2024 14:59-0500 Body aqxids608.8 cmRobert Vaschak DO Work Phone: 1(923)[address]12-09-2024 14:59-0500Body mass index (BMI) [Ratio]20.37 kg/t7Kjxato Vaschak DO Work Phone: 1(566)[address] [place], [place] 6713712-09-2024 14:59-0500Body .41 kgRobert Vassunithak DO Work Phone: 1(540)[address] [place], [place] 6713712-09-2024 14:59-0500Diastolic blood sylitoop63 mm[Hg]Marie Tejeda DO Work Phone: 1(587)[address] [place], [place] 6713712-09-2024 14:59-0500Heart rate70 /min Marie Tejeda DO Work Phone: 1(223)[facility] [place], [place] [address]Gkdfnyfiqu62-39-6649 14:59-0500Systolic blood rymabgfy995 mm[Hg]Marie Tejeda DO Work Phone: 1(971)[address] [place], [place] 6713712-08-2024 15:42-0500Body temperature 97.6 [degF]Marie Tejeda DO Work Phone: 9(213)[address]12-08-2024 15:42-0500 Diastolic blood viinfjzm97 mm[Hg]Marie Tejeda DO Work Phone: 7(525)[address] [place], [place] 3916712-08-2024 15:42-0500 Heart rate60 /minRobert Vaschak DO Work Phone: 6(182)855-[address] [place], [place] 3916712-08-2024 15:42-0500 Respiratory rate19 /minRobert Vaschak DO Work Phone: 0(947)3-[address] [place], [place] 3916712-08-2024 15:42-0500 SaO2% (BldA) [Mass fraction]96 %Marie Tejeda DO Work Phone: 7(940)273-[address] [place], [place] 3916712-08-2024 15:42-0500 Systolic blood mbkquoxu145 mm[Hg]Marie Tejeda DO Work Phone: 1(215)991-[address] [place], [place] 3916712-08-2024 05:28-0500 Body kyhzip80.5 kgRobert Vassunithak DO Work Phone: 8(095)[address]12-06-2024 19:55-0500 Body afuumk580.8 cmRobert Jamak DO Work Phone: 1(181)[address]11-19-2024 14:20-0500 Body .8 cmRobert Jamak DO Work Phone: 0(510)[address] [place] [address]-19-2024 14:20-0500Body mass index (BMI) [Ratio]21.09 kg/w1Ircsipmarsha Yunk DO Work Phone: [address] [place], [place] [address]Ffcphfbcuv09-11-4005 14:20-0500Body yunhgl30.68 kgRobmarsha Tejeda DO Work Phone: [address] [place], [place] [address]Lvwqtqndom71-88-9325 14:20-0500Diastolic blood cunlnazv68 mm[Hg]Marie Tejeda DO Work Phone: [place] [address]Wwrpvmccka72-51-3633 14:20-0500Heart rate61 /min Marie Tejeda DO Work Phone: [place] [address]Wfrcwojzjy95-67-8326 14:20-8987KqJ7% (BldA) [Mass fraction]97 %Marie Tejeda DO Work Phone: 6(808)838-99[place] [address]Rzuqutqtyx99-48-2080 14:20-0500Systolic blood mm[Hg]Marie Tejeda DO Work Phone: [place] [address]Xejmwfgmzu51-71-3637 08:00-0500Body hvwbtyneyxq73 [degF]Marie Tejeda DO Work Phone: [facility]11-14-2024 08:00-0500 Diastolic blood mdttnaxp40 mm[Hg]Marie Tejeda DO Work Phone: 6(519)780-[address] [place], [place] 3916711-14-2024 08:00-0500 Heart rate60 /minRobert Vaschak DO Work Phone: 0(483)281-[address] [place], [place] 3916711-14-2024 08:00-0500 Respiratory rate16 /minRobert Vaschak DO Work Phone: 7(353)096[address]11-14-2024 08:00-0500 SaO2% (BldA) [Mass fraction]97 %Marie Vaschak DO Work Phone: 1(646)[address]11-14-2024 08:00-0500 Systolic blood zlgsxmuj370 mm[Hg]Marie Vaschak DO Work Phone: 1(782)[address]11-14-2024 06:00-0500 Body mtuebn45 kgRobert Vaschak DO Work Phone: 1(453)[address]11-13-2024 20:12-0500 Body widrsy368.8 cmRobert Vaschak DO Work Phone: 1(224)[address]11-13-2024 19:25-0500 Inhaled oxygen flow rate10 L/minRobert Vaschak DO Work Phone: 0(604)[address]10-30-2024 11:10-0400 Diastolic blood tfolqwrh03 mm[Hg]DO Marie Vaschak Work Phone: 2(459)[address]10-30-2024 11:10-0400 Heart rate61 /minDO Marie Vaschak Work Phone: 1(075)9-[address] [place], [place] 3916710-30-2024 11:10-0400 Systolic blood ulauthgo541 mm[Hg]DO Marie Vaschak Work Phone: 7(634)5-[address] [place], [place] 3916710-30-2024 11:00-0400 Body dbrbak346.8 cmDO Marie Vaschak Work Phone: 3(883)697-[address] [place], [place] 3916710-30-2024 11:00-0400 Body mass index (BMI) [Ratio]21.9 kg/m2DO Marie Vaschak Work Phone: 1(473)635[address]10-30-2024 11:00-0400 Body epqbsw67.39 kgDO Marie Tejeda Work Phone: 1(708)[address]10-30-2024 11:00-0400 Respiratory rate18 /minDO Marie Jamak Work Phone: 9(991)[address]10-30-2024 11:00-0400 SaO2% (BldA) [Mass fraction]98 %DO Marie Tejeda Work Phone: 1(766)[address] [place], [place] 1172710-16-2024 14:14-0400 Diastolic blood yjhfbnsc47 mm[Hg]DO Marie Ileana Work Phone: 1(299)[address]10-16-2024 14:14-0400 Systolic blood mggdiecm404 mm[Hg]DO Marie Tejeda Work Phone: 1(951)[address] [place], [place] 1172710-16-2024 13:23-0400 Body zsumqa743.8 cmDO Marie Tejeda Work Phone: 1(491)[address] [place], [place] 1172710-16-2024 13:23-0400 Body mass index (BMI) [Ratio]22.2 kg/m2DO Marie Tejeda Work Phone: 7(056)[address] [place], [place] 1172710-16-2024 13:23-0400 Body .3 kgDO Marie Tejeda Work Phone: 6(599)[address] [place], [place] 1172710-16-2024 13:23-0400 Heart rate56 /minDO Marie Tejeda Work Phone: 1(991)[address]10-16-2024 13:23-0400 Respiratory rate18 /minDO Marie Yunk Work Phone: 0(936)[address]10-16-2024 13:23-0400 SaO2% (BldA) [Mass fraction]94 %DO Marie Ileana Work Phone: 1(598)[address] [place], [place] 1172710-16-2024 10:24-0400 Diastolic blood knwwcooc45 mm[Hg]DO Marie Tejeda Work Phone: [facility]10-16-2024 10:24-0400 Heart rate55 /Eleazar Tejeda Work Phone: [facility]10-16-2024 10:24-0400 Respiratory rate12 /Eleazar Tejeda Work Phone: [facility]10-16-2024 10:24-0400 SaO2% (BldA) [Mass fraction]97 %DO Marie Tejeda Work Phone: [facility]10-16-2024 10:24-0400 Systolic blood smpxasse236 mm[Hg]DO Marie Tejeda Work Phone: [facility]10-14-2024 15:59-0400 Diastolic blood zjygwihu44 mm[Hg]Anatoly Cally RESCUE WORKER Work Phone: [facility] CenterMusfossnpk74-27-3611 15:59-0400Heart rate50 /min Yuerong Cally RESCUE WORKER Work Phone: [facility] CenterJnmfjxwihy44-13-9068 15:59-7236CsV0% (BldA) [Mass fraction]90 %Yuerong Cally RESCUE WORKER Work Phone: [facility] CenterUmtwnrimfj82-65-8513 15:59-0400Systolic blood anfeklwk397 mm[Hg]Yuerong Cally RESCUE WORKER Work Phone: [facility] CenterQwrcnkoqet26-76-7255 10:52-0400Diastolic blood whrvcjpo94 mm[Hg]Marie Jamak DO Work Phone: [facility] CenterYljmovvyvk95-88-2608 10:52-0400Heart rate52 /min Marie Vaschak DO Work Phone: [place] [address]Qzwgvhppwy04-91-9731 10:52-6553YrA9% (BldA) [Mass fraction]94 %Marie Jamak DO Work Phone: [place] [address]Hvqsgpkxmp39-46-9870 10:52-0400Systolic blood adfthvlt13 mm[Hg]Marie Jamak DO Work Phone: 4(691)408-99[facility] CenterBfcvgstdse74-47-7872 10:50-0400Body .8 cmRobert Jamak DO Work Phone: [facility] CenterDoyfikzyjn14-33-9759 10:50-0400Body mass index (BMI) [Ratio]20.81 kg/l4Pzjovv Vaschak DO Work Phone: [facility] CenterVhwqakbbir50-81-7325 10:50-0400Body uxhvxy78.77 kgRobert Vaschak DO Work Phone: 9(716)[address]09-16-2024 11:09-0400Body eoaflu992.8 cmDO Marie Yunk Work Phone: 4(391)[address]09-16-2024 11:09-0400 Body mass index (BMI) [Ratio]20.9 kg/m2DO Marie Yunk Work Phone: 1(645)[address]09-16-2024 11:09-0400 Body pqqfez06.22 kgDO Marie Jamak Work Phone: 8(628)[address]09-16-2024 11:09-0400 Diastolic blood ndleolsf36 mm[Hg]DO Marie Jamak Work Phone: 5(622)[address]09-16-2024 11:09-0400 Heart rate61 /minDO Marie Yunk Work Phone: 1(698)[address]09-16-2024 11:09-0400 Respiratory rate18 /minDO Marie Yunk Work Phone: 3(834)373-[address] [place], [place] 3916709-16-2024 11:09-0400 SaO2% (BldA) [Mass fraction]97 %DO Marie Xavichak Work Phone: 5(768)[address] [place], [place] 3916709-16-2024 11:09-0400 Systolic blood jtqsqiof180 mm[Hg]DO Marie Xavichak Work Phone: 5(034)661-[address] [place], [place] [id number] 11:08-0400 Diastolic blood akukkxmi11 mm[Hg]DO Marie Jamak Work Phone: 0(859)909-[address] [place], [place] [id number] 11:08-0400 Heart rate59 /Eleazar Yunk Work Phone: 4(388)061-[address] [place], [place] 3916709-04-2024 11:08-0400 Systolic blood zwljlpuh546 mm[Hg]DO Marie Xavichak Work Phone: 1(472)116-[address] [place], [place] 3916709-04-2024 11:07-0400 Respiratory rate18 /TitaO Marie Yunk Work Phone: 4(065)[address]09-04-2024 11:06-0400 Body .8 cmDO Marie Yunk Work Phone: 3(233)[address]09-04-2024 11:06-0400 Body mass index (BMI) [Ratio]21.5 kg/m2DO Marie Yunk Work Phone: 1(440)[address]09-04-2024 11:06-0400 Body alolus34.03 kgDO Marie Tejeda Work Phone: 3(275)[address]09-04-2024 11:06-0400 SaO2% (BldA) [Mass fraction]95 %DO Marie Jamak Work Phone: 0(309)053-[address] [place], [place] [id number] 11:01-0400 Diastolic blood mm[Hg]DO Marie Xavichak Work Phone: [address] [place], [place] 4820508-30-2024 11:01-0400 Heart rate45 /TitaO Marie Yunk Work Phone: 6(901)341-[address] [place], [place] [id number] 11:01-0400 Systolic blood mm[Hg]DO Marie Vaschak Work Phone: 1(994)907-[address] [place], [place] [id number] 11:24-0400 Diastolic blood abjowvhg12 mm[Hg]DO Marie Ileana Work Phone: [facility]08-28-2024 11:24-0400 Heart rate54 /Eleazar Tejeda Work Phone: [facility]08-28-2024 11:24-0400 Systolic blood usfmanca164 mm[Hg]DO Marie Tejeda Work Phone: 1(838)222-[address] [place], [place] [id number] 12:36-0400 Respiratory rate18 /minDO Marie Tejeda Work Phone: 1(965)[address]08-21-2024 12:36-0400 SaO2% (BldA) [Mass fraction]97 %DO Marie Tejeda Work Phone: 0(920)37721 [address]08-20-2024 13:29-0400 Diastolic blood eipmhpix27 mm[Hg]DO Marie Tejeda Work Phone: 4(495)[address]08-20-2024 13:29-0400 Heart rate52 /Eleazar Tejeda Work Phone: 1(337)718-[address] [place], [place] [id number] 13:29-0400 Systolic blood ehcmtxni02 mm[Hg]DO Marie Tejeda Work Phone: 0(153)[address]08-20-2024 13:25-0400 Respiratory rate18 /Eleazar Tejeda Work Phone: 7(582)477-[address] [place], [place] [id number] 13:24-0400 Body zejfja928.8 cmDO Marie Tejeda Work Phone: 7(320)947-[address] [place], [place] [id number] 13:24-0400 Body mass index (BMI) [Ratio]21.4 kg/m2DO Marie Jamak Work Phone: 5(064)654-[address] [place], [place] [id number] 13:24-0400 Body gcnomq28.58 kgDO Marie Yunk Work Phone: 3(659)994-[address] [place], [place] [id number] 13:24-0400 SaO2% (BldA) [Mass fraction]99 %DO Marie Xavichak Work Phone: 1(675)910-[address] [place], [place] [id number] 10:12-0400 Diastolic blood nvkclazn53 mm[Hg]DO Marie Jamak Work Phone: 1(598)968-[address] [place], [place] [id number] 10:12-0400 Heart rate48 /minDO Marie Yunk Work Phone: 1(599)[address]08-06-2024 10:12-0400 Systolic blood nbmvkzci29 mm[Hg]DO Marie Jamak Work Phone: 1(489)[address]08-06-2024 10:11-0400 Body .8 cmDO Marie Tejeda Work Phone: 1(957)[address]08-06-2024 10:11-0400 Body mass index (BMI) [Ratio]21.5 kg/m2DO Marie Tejeda Work Phone: 1(515)[address]08-06-2024 10:11-0400 Body hhmadj89.03 kgDO Marie Tejeda Work Phone: 1(290)[address]08-06-2024 10:11-0400 Respiratory rate18 /Eleazar Tejeda Work Phone: 1(520)[address]08-06-2024 10:11-0400 SaO2% (BldA) [Mass fraction]97 %DO Marie Ileana Work Phone: 1(517)429-[address] [place], [place] [id number] 11:29-0400 Diastolic blood octdicqq51 mm[Hg]DO Marie Ileana Work Phone: 8(197)676[address]07-30-2024 11:29-0400 Heart rate45 /TitaO Marie Jamak Work Phone: 5(230)158-[address] [place], [place] [id number] 11:29-0400 Respiratory rate16 /minDO Marie Jamak Work Phone: 1(041)610-[address] [place], [place] [id number] 11:29-0400 SaO2% (BldA) [Mass fraction]98 %DO Marie Jamak Work Phone: 9(662)755-[address] [place], [place] [id number] 11:29-0400 Systolic blood wxsqghga190 mm[Hg]DO Marie Xavichak Work Phone: 9(937)092-[address] [place], [place] [id number] 07:59-0400 Body uxmoqvbtasc49.8 [degF]DO Marie Jamak Work Phone: 1(632)23421 [address]07-30-2024 05:37-0400 Body zsybel51.9 kgDO Marie Tejeda Work Phone: 0(293)645[address]07-28-2024 15:56-0400 Body piliao072.8 cmDO Marie Tejeda Work Phone: 0(608)360-[address] [place], [place] [id number] 00:57-0400 Diastolic blood mecafgma53 mm[Hg]DO Marie Ileana Work Phone: 1(920)945-[address] [place], [place] [id number] 00:57-0400 Heart rate58 /minDO Marie Tejeda Work Phone: 3(582)948-[address] [place], [place] [id number] 00:57-0400 Respiratory rate18 /minDO Marie Tejeda Work Phone: [address] [place], [place] 4820507-28-2024 00:57-0400 SaO2% (BldA) [Mass fraction]100 %DO Marie Ileana Work Phone: [address] [place], [place] 4820507-28-2024 00:57-0400 Systolic blood oqnxrrki264 mm[Hg]DO Marie Jamak Work Phone: 3(317)574-[address] [place], [place] [id number] 19:13-0400 Body faznos029.07 cmDO Marie Jamak Work Phone: 3(179)357-[address] [place], [place] [id number] 19:13-0400 Body mdmqzhmuqfh09.6 [degF]DO Marie Xavichak Work Phone: 7(344)452-[address] [place], [place] [id number] 19:13-0400 Body .5 kgDO Marie Tejeda Work Phone: 2(506)[address]05-02-2024 13:50-0400 Diastolic blood zcfezwnk34 mm[Hg]DO Marie Tejeda Work Phone: 5(762)[address]05-02-2024 13:50-0400 Heart rate56 /Eleazar Tejeda Work Phone: 9(676)[address]05-02-2024 13:50-0400 Respiratory rate16 /TitaO Marie Tejeda Work Phone: 1(213)[address]05-02-2024 13:50-0400 SaO2% (BldA) [Mass fraction]97 %DO Marie Tejeda Work Phone: 6(983)[address]05-02-2024 13:50-0400 Systolic blood qtwloimf501 mm[Hg]DO Marie Tejeda Work Phone: 1(630)[address]05-02-2024 12:20-0400 Body .8 cmDO Marie Tejeda Work Phone: 2(741)[address]05-02-2024 12:20-0400 Body ohpblc81.77 kgDO Marie Tejeda Work Phone: 9(336)1-[address] [place], [place] [id number] 14:51-0400 Body ckaftz475.8 cmDO Marie Tejeda Work Phone: 7(283)512-[address] [place], [place] [id number] 14:51-0400 Body mass index (BMI) [Ratio]20.9 kg/m2DO Marie Tejeda Work Phone: 5(054)792-[address] [place], [place] [id number] 14:51-0400 Body falgyg74.22 kgDO Marie YuntwtMob Work Phone: 4(688)216-[address] [place], [place] [id number] 14:51-0400 Diastolic blood hlvifkwh07 mm[Hg]DO Marie Tejeda Work Phone: 1(329)[address]04-18-2024 14:51-0400 Heart rate64 /Eleazar Tejeda Work Phone: 1(774)636[address]04-18-2024 14:51-0400 Respiratory rate18 /TitaO Marie Tejeda Work Phone: 1(670)[address]04-18-2024 14:51-0400 SaO2% (BldA) [Mass fraction]96 %DO Marie Tejeda Work Phone: 1(746)[address]04-18-2024 14:51-0400 Systolic blood jclyikau689 mm[Hg]DO Marie Ileana Work Phone: 1(654)[address]04-11-2024 08:36-0400 Body mepzqv380.8 cmDO Marie YuntwtMob Work Phone: 1(341)[address]04-11-2024 08:36-0400 Body mass index (BMI) [Ratio]21.2 kg/m2DO Marie MinglysunithatwtMob Work Phone: 9(275)[address]04-11-2024 08:36-0400 Body .13 kgDO Marie YuntwtMob Work Phone: 3(440)[address]03-19-2024 10:26-0400 Body ijbwxv094.8 cmDO Marie YuntwtMob Work Phone: 3(411)170[address]03-19-2024 10:26-0400 Body mass index (BMI) [Ratio]21.2 kg/m2DO Marie MinglysunithatwtMob Work Phone: 4(745)459-[address] [place], [place] [id number] 10:26-0400 Body .13 kgDO Marie JamatwtMob Work Phone: 2(831)519-[address] [place], [place] [id number] 15:40-0400 Diastolic blood fjkeuaqb45 mm[Hg]DO Marie Xavichak Work Phone: [facility]03-18-2024 15:40-0400 Heart rate72 /Eleazar Tejeda Work Phone: [facility]03-18-2024 15:40-0400 Systolic blood slbankom275 mm[Hg]DO Marie Tejeda Work Phone: 0(432)[address]02-26-2024 12:00-0500 Body hlndsrnawwi40.4 [degF]DO Marie Tejeda Work Phone: [address] [place], [place] 4820502-26-2024 12:00-0500 Diastolic blood rypfbejn81 mm[Hg]DO Marie Tejeda Work Phone: 1(760)029-[address] [place], [place] [id number] 12:00-0500 Heart rate67 /Eleazar Tejeda Work Phone: [address] [place], [place] 4820502-26-2024 12:00-0500 Respiratory rate16 /Eleazar Tejeda Work Phone: [address] [place], [place] 4820502-26-2024 12:00-0500 SaO2% (BldA) [Mass fraction]97 %DO Marie Tejeda Work Phone: 9(633)[phone]02-26-2024 12:00-0500 Systolic blood qnxjvfmu582 mm[Hg]DO Marie Tejeda Work Phone: [facility]02-26-2024 06:00-0500 Body dawxbj84.2 kgDO Marie Tejeda Work Phone: [facility]02-21-2024 15:42-0500 Body zqqzsy907.8 cmDO Marie Tejeda Work Phone: [facility]02-05-2024 14:07-0500 Body .8 cmSammy Berman APRN-KALANI Work Phone: [facility]02-05-2024 14:07-0500 Body mass index (BMI) [Ratio]20.09 kg/b8KisgeSammy Berman CLINICAL LAB CLERK-[employer] Work Phone: [facility]02-05-2024 14:07-0500 Body dkgujs03.5 kgSammy Berman CLINICAL LAB CLERK-[employer] Work Phone: [facility]02-05-2024 14:07-0500 Diastolic blood munqbsnp92 mm[Hg]Sammy Berman CLINICAL LAB CLERK-[employer] Work Phone: [facility]02-05-2024 14:07-0500 Heart rate72 /Markus Berman CLINICAL LAB CLERK-[employer] Work Phone: [facility]02-05-2024 14:07-0500 Systolic blood sxtmvenf908 mm[Hg]Sammy Berman CLINICAL LAB CLERK-[employer] Work Phone: [facility]01-05-2024 22:45-0500 Diastolic blood cwecknqz39 mm[Hg]DO Marie Tejeda Work Phone: [facility]01-05-2024 22:45-0500 Heart rate69 /Eleazar Tejeda Work Phone: [address] [place], [place] 4820501-05-2024 22:45-0500 Respiratory rate16 /Eleazar Yunk Work Phone: [address] [place], [place] 4820501-05-2024 22:45-0500 SaO2% (BldA) [Mass fraction]98 %DO Marie Tejeda Work Phone: [facility]01-05-2024 22:45-0500 Systolic blood szzbcwod699 mm[Hg]DO Marie Hurleychak Work Phone: [facility]01-05-2024 13:24-0500 Body tmfamb427.8 cmDO Marie Yunk Work Phone: [facility]01-05-2024 13:24-0500 Body dkszqspavis97.7 [degF]DO Marie Yunk Work Phone: [facility]01-05-2024 13:24-0500 Body .95 kgDO Marie Tejeda Work Phone: [facility]11-14-2023 13:41-0500 Diastolic blood rnbaxtbb05 mm[Hg]Govind Davis DO Work Phone: [facility]11-14-2023 13:41-0500 Systolic blood yjefnqjh041 mm[Hg]Govind Davis DO Work Phone: [facility]11-14-2023 13:37-0500 Body wctgmu662.8 cmWieron Davis DO Work Phone: [address] [place], [place] [address]0311-14-2023 13:37-0500 Body mass index (BMI) [Ratio]19.51 kg/o3IdobsrbGovind Davis DO Work Phone: [facility]11-14-2023 13:37-0500 Body teouca53.69 kgWieron Davis DO Work Phone: [facility]11-14-2023 13:37-0500 Heart rate70 /minGovind Davis DO Work Phone: [facility]10-28-2023 10:33-0400 Diastolic blood trgzrahf82 mm[Hg]DO Marie Tejeda Work Phone: [facility]10-28-2023 10:33-0400 Heart rate97 /Eleazar Teejda Work Phone: [facility]10-28-2023 10:33-0400 Respiratory rate18 /minDJuan Ramon Yunk Work Phone: [facility]10-28-2023 10:33-0400 Systolic blood jtsdqvev523 mm[Hg]DO Marie Jamak Work Phone: [facility]10-28-2023 05:00-0400 Body vkyyemsjuxz10.8 [degF]DO Marie Xavichak Work Phone: [phone]10-28-2023 05:00-0400 SaO2% (BldA) [Mass fraction]97 %DO Marie Tejeda Work Phone: [phone])[address]10-24-2023 11:00-0400 Body dopanl729.8 cmDO Marie Tejeda Work Phone: 6(536)[address] [place], [place] 1172710-23-2023 16:44-0400 Body lkrdji84.4 kgDO Marie Tejeda Work Phone: 1(220)[address] [place], [place] 1172710-23-2023 11:48-0400 Body bjtcogvhprz86.1 [degF]DO Marie Tejeda Work Phone: 9(792)[address] [place], [place] 1172710-23-2023 11:48-0400 Diastolic blood qeqtxiyl21 mm[Hg]DO Marie Tejeda Work Phone: 1(350)[address] [place], [place] 1172710-23-2023 11:48-0400 Heart rate55 /Eleazar Tejeda Work Phone: 1(965)[address] [place], [place] 1172710-23-2023 11:48-0400 Respiratory rate18 /Eleazar Tejeda Work Phone: 7(034)[address]10-23-2023 11:48-0400 SaO2% (BldA) [Mass fraction]99 %DO Marie Tejeda Work Phone: 7(317)[address]10-23-2023 11:48-0400 Systolic blood olbkmqgw724 mm[Hg]DO Marie Tejeda Work Phone: 1(570)[address]10-23-2023 05:40-0400 Body .6 kgDO Marie Tejeda Work Phone: [phone](842)[address]10-22-2023 00:00-0400 Inhaled oxygen flow rate6 L/Eleazar Tejeda Work Phone: 1([phone])[address]10-20-2023 15:31-0400 Body mass index (BMI) [Ratio]18.8 kg/m2DO Marie Tejeda Work Phone: [phone]10-20-2023 15:25-0400 Body xdlfuj546.34 cmDO Marie Tejeda Work Phone: 4([phone])[address]10-18-2023 16:32-0400 Heart rate63 /Eleazar Tejeda Work Phone: 1(763)[address]10-18-2023 16:24-0400 Diastolic blood mm[Hg]DO Marie Tejeda Work Phone: 1(427)[address]10-18-2023 16:24-0400 Respiratory rate18 /Eleazar Tejeda Work Phone: 1(239)[address]10-18-2023 16:24-0400 SaO2% (BldA) [Mass fraction]98 %DO Marie Tejeda Work Phone: 1(207)[address] [place], [place] 1172710-18-2023 16:24-0400 Systolic blood avvrqvyw417 mm[Hg]DO Marie Tejeda Work Phone: 1(730)[address] [place], [place] 1172710-18-2023 13:34-0400 Body .2 [degF]DO Marie Tejeda Work Phone: 1(165)[address]10-18-2023 12:19-0400 Body dlohzy285.34 cmDO Marie Tejeda Work Phone: 1(249)[address]10-18-2023 12:19-0400 Body .41 kgDO Marie Tejeda Work Phone: [phone]06-29-2022 09:35-0400 Diastolic blood wofwzwth43 mm[Hg]Gray Ross MD Work Phone: bon [facility]06-29-2022 09:35-0400Systolic blood mm[Hg]Gray Ross MD Work Phone: bon [facility]06-29-2022 07:46-0400Body utnltjgskzy39.81 [degF]Gray Ross MD Work Phone: bon [facility]06-29-2022 07:46-0400Heart rate64 /minGray Ross MD Work Phone: bON [facility]06-29-2022 07:46-0400 Respiratory rate15 /minGray Ross MD Work Phone: bon [facility]06-29-2022 07:46-8602ChL5% (BldA) [Mass fraction]98 %Gray Ross MD Work Phone: bON [facility]06-25-2022 04:00-0400Body omijjc068.8 cmGray Ross MD Work Phone: bON [facility]06-25-2022 04:00-0400Body mass index (BMI) [Ratio]20.81 kg/a4NefsfyhGray Ross MD Work Phone: bon [facility]06-25-2022 04:00-0400Body iobtfg29.8 kgGray Ross MD Work Phone: bon [facility] Encounters Encounter DateEncounter TypeCare ProviderFacilityStart: 05-21-2025 End: 25-12-3955rlcpokhcwbJeggpgx P COOKFacility:EU [place]Start: 05-21-2025 End: 44-10-7837Etcwfuv encounter procedureTristan MELCHOR [facility] start: 05-17-2025 End: 04-12-8436Cpqrjspfv department patient visitAstrit H NicolasariFacility:[facility] Start: 05-10-2025 End: 49-91-6376Lvxwoncfl Result EncounterGeneric External Data ProviderNOMS External Department UnsolicitedStart: 05-10-2025 End: 62-89-5871Jgarkjwxj Result EncounterGeneric External Data ProviderNOMS External Department UnsolicitedStart: 05-09-2025 End: 99-30-1968fgrjehukrnIfnucm Ileana DO Work Phone: [phone])584-8942840-0722-Kltqbkuau Health CardiologyStart: 05-09-2025 End: 37-56-2718Vmsgiqk encounter procedureAnat Perez MD-[facility] Work Phone: Start: 05-08-2025 End: 52-65-2104Jlbfiiruh Result EncounterGeneric External Data ProviderNOMS External Department UnsolicitedStart: 05-08-2025 End: 36-03-2045Sqrlhuiem Result EncounterGeneric External Data ProviderNOMS External Department UnsolicitedStart: 05-03-2025 End: 77-61-0332klapugocfsEKXJFEZ MARSHALLFacility:[facility] Start: 05-02-2025 End: 76-01-0297vewyulqnsnRQN WARCHOLNot AvailableStart: 05-02-2025 End: 31-85-6752Nzeyqo outpatient visit 40 minutesMarga Robledo NP Work Phone: [facility] Internal MedicineComment on above:Need for follow-up [...] (implantable cardioverter-defibrillator) in place; PacemakerStart: 04-25-2025 End: 73-75-2173qszfcmtzpuAsjwjsu P COOKFacility:EU kStart: 04-25-2025 End: 15-76-6158Ncexzhw encounter procedureTristan MELCHOR [facility] Start: 04-18-2025 End: 56-26-3228ocezevwakgOsjevtc P COOKFacility:EU [place]art: 04-18-2025 End: 43-06-9291Lunaugo encounter procedureGreggiuliano MELCHOR [facility] Start: 22-33-6569epmpkrccjuQvpgmc HajdariFacility:EU [place]Start: 04-09-2025 End: 41-33-0301Qqupkoqmo Result EncounterGeneric External Data ProviderNOMS External Department UnsolicitedStart: 04-09-2025 End: 20-86-6874Cukfcdxbx Result EncounterGeneric External Data ProviderNOMS External Department UnsolicitedStart: 04-09-2025 End: 24-69-9510skykpcjhavEPGXEZR MARSHALLFacility:[facility] Start: 04-09-2025 End: 19-14-1985ndhpnrrkfuYGFPHH TRU TEJEDAFacility:[facility] Start: 04-02-2025 End: 52-88-0250Wkfwmoklc Result EncounterGeneric External Data ProviderNOMS External Department UnsolicitedStart: 04-02-2025 End: 39-51-3695Iookbzjqs Result EncounterGeneric External Data ProviderNOMS External Department UnsolicitedStart: 03-28-2025 End: 42-95-7989Eagpkx-up encounterMelrudi Peguero LPNEndocrinologyStart: 03-27-2025 End: 03-85-5954ztfpubadbuIvkpye Vaschak DO Work Phone: [facility] Work Phone: Start: 03-27-2025 End: 63-67-5791Vvinhdd encounter procedureAnat Perez MD-[facility] Work Phone: Start: 03-16-2025 End: 37-83-8323Ofpxym Cesar Zavala APRN.CNP Work Phone: EndocrinologyStart: 03-02-2025 End: 10-94-5297ricfldiftiRlvhja IleanaFacility:[facility] Hospital[facility]art: 29-15-2025Uvj-patient / Non-visitMikel Root-Heart Rhythm ClinicStart: 02-13-2025 End: 93-51-5051Xzfckyqtq Result EncounterGeneric External Data ProviderNOMS External Department UnsolicitedStart: 02-13-2025 End: 20-75-3351Amrvqrycs Result EncounterGeneric External Data ProviderNOMS External Department UnsolicitedStart: 02-05-2025 End: 28-96-8147txqqcqmzkfKdxpjcw Bayer APRN.CNP Work Phone: RheumatologyComment on above:Blood testStart: 02-05-2025 End: 06-08-6223Cftvppwpt encounterAyana Zavala APRN.CNP Work Phone: EndocrinologyStart: 01-16-2025 End: 86-56-0174rvpwlgaqtbGAUJEH J VASCHAKNot AvailableStart: 01-08-2025 End: 69-91-3646Acbdbn OnlyRobert J Vaschak DO Work Phone: noms External Department UnsolicitedStart: 01-02-2025 End: 79-51-2952Bpbgsc outpatient visit 25 minutesRobert J Minglychak DO Work Phone: NOU[facility] SWS IMComment on above:Pancreatic insufficiency (HCC) (Primary Dx); PleurisyStart: 01-02-2025 End: 68-94-4486puuotqzopiPYPBNK J VASCHAKNot AvailableStart: 01-01-2025 End: 57-73-0794bvgbrsukmuXozvbvcAnastasia Zavala APRN.CNP Work Phone: EndocrinologyComment on above:Rx for sensorsStart: 12-26-2024 End: 34-26-7954zscyeeobkxLoqhyynNohelia Zavala APRN.CNP Work Phone: EndocrinologyComment on above:SensorsStart: 12-19-2024 End: 46-53-6748Nxvivdidb encounterAyana Zavala APRN.CNP Work Phone: EndocrinologyComment on above:Refill RequestStart: 12-12-2024 End: 16-03-5262OqdjwhZgrtbmsAyana Zavala APRN.CNP Work Phone: EndocrinologyComment on above:Refill RequestStart: 11-30-2024 End: 23-47-9983oowtusclxoEwpvvl VaschakFacility:[facility] Hospitaltart: 01-18-9754Luh-patient / Non-visitFirst[facility]-Heart Rhythm ClinicStart: 11-01-2024 End: 78-72-3402optdbzeqpuMsmdeozNohelia Zavala APRN.CNP Work Phone: EndocrinologyComment on above:Medication changeStart: 10-26-2024 End: 34-21-5290Ldzwywv encounter procedureAyana Zavala APRN.CNP Work Phone: EndocrinologyComment on above: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, with long-term current use of insulin(HCC) (Primary Dx); 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); Insulin pump status; Insulin pump titrationStart: 10-26-2024 End: 03-97-2945gxokdsdfinEHHMMLRy Brumfieldcility:[facility] Start: 10-23-2024 End: 76-45-2899Uqrzcpfoh Result EncounterGeneric External Data ProviderNOMS External Department UnsolicitedStart: 10-23-2024 End: 93-32-5741Dnkrkduyj Result EncounterGeneric External Data ProviderNOMS External Department UnsolicitedStart: 10-13-2024 End: 68-01-3731Cuzxqvwel encounterGaye Mata RNDiBaylor Scott & [facility] FHCComment on above:Omnipod/Dexcom issuesStart: 10-13-2024 End: 48-51-6301dvonfcznniSsdpnp Vaschak DO Work Phone: [facility] Work Phone: Start: 10-13-2024 End: 68-31-2237Gvuijju encounter procedureRobmarsha Tejeda DO Work Phone: [facility] GroupUn[facility] Work Phone: Start: 10-11-2024 End: 38-45-0056Uuedmftbx encounterAyana Zavala APRN.CNP Work Phone: EndocrinologyComment on above:Insurance Authorization (insulin pump cart,auto,BT,G6/7 (OMNIPOD 5 G6-G7 PODS, GEN 5,) crtg)Omnipod 5/Dexcom G7 issuesStart: 10-10-2024 End: 35-07-4382Hjkwefteh encounterGaye TorresBaylor Scott & [facility] FHCComment on above:Dexcom G7 CGM supply issuesStart: 10-04-2024 End: 58-04-9450OuuqfyKpizgxjLashon Zavala APRN.CNP Work Phone: EndocrinologyComment on above:Med Change RequestStart: 10-04-2024 End: 40-04-5758Ktgxqrvzo encounterGaye TorresBaylor Scott & [facility] FHCComment on above:Omnipod 5/Dexcom helpDexcom G7 CGM supply issues Start: 09-27-2024 End: 56-24-0817kcpagzhqlzYfysoyvNohelia Zavala APRN.CNP Work Phone: EndocrinologyComment on above:GlucoseStart: 09-27-2024 End: 38-23-7599Dntlwvuxw encounterGaye TorresBaylor Scott & [facility] FHCComment on above:Omnipod 5 pump follow up callStart: 09-26-2024 End: 70-60-1669Fulbvz-up encounterAyana Zavala APRN.CNP Work Phone: EndocrinologyStart: 09-26-2024 End: 44-83-7242Locxjsrwk Aisha Zavala APRN.CNP Work Phone: EndocrinologyStart: 09-25-2024 End: 17-20-7654jggxvwnzqnYAGLTA JOSEPH VASCHAKFacility:[facility] Start: 09-25-2024 End: 14-11-4740Fjhfxzw encounter Margaret Zavala APRN.CNP Work Phone: EndocrinologyComment on above: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, with long-term current use of insulin(HCC) (Primary Dx); 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); Insulin pump status; Insulin pump titrationStart: 09-22-2024 End: 76-00-4366Gkiidi OnlyAyana Zavala APRN.CNP Work Phone: EndocrinologyComment on above: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, with long-term current use of insulin(HCC) (Primary Dx)Omnipod 5 pump issueStart: 09-21-2024 End: 29-79-4242Zqgcrhfvz encounterGaye Torresabetic [facility] Hospitalment on above:Omipod 5 upgrade follow up callStart: 09-13-2024 End: 58-91-2041Gocwbnucs Result EncounterGeneric External Data ProviderNOMS External Department UnsolicitedStart: 09-13-2024 End: 84-21-6905Ocwutlwpu Result EncounterGeneric External Data ProviderNOMS External Department UnsolicitedStart: 09-04-2024 End: 40-32-7726grcpjwvsouXIBPVC TRU ILEANAFacility:[facility] Start: 09-04-2024 End: 73-35-3844Kfyuaig evaluation of patient and reportGaye Torresabetic Citizens Medical Centeromment on above: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, with long-term current use of insulin(HCC) (Primary Dx)Start: 08-31-2024 End: 12-64-4468Vhbkswqvl encounterGaye Torresabetic [facility] on above:AppointmentStart: 08-31-2024 End: 05-42-1903snrcatydinAlsguu Vaschak DO Work Phone: [facility] Work Phone: Start: 08-31-2024 End: 63-94-3278Ulwwhix encounter procedureRobert Vaschak DO Work Phone: [facility] Work Phone: Start: 08-30-2024 End: 11-91-6832Hazaml outpatient visit 40 minutesRobert Khoi Tejeda DO Work Phone: [facility] SWS IMComment on above:Abdominal wall abscess; Acquired total absence of pancreas; Insulin pump in place; Lower respiratory infection; ICD (implantable cardioverter-defibrillator) in place; H/O splenectomy; 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); Chronic systolic CHF (congestive heart failure), NYHA class 2 (CMS/HCC); Nonrheumatic mitral valve regurgitation; Pancreatic insufficiency (CMS/HCC)Start: 08-30-2024 End: 75-86-8884cuapdcuuqzGVGQCM Khoi VASSUNITHAKNot AvailableStart: 08-29-2024 End: 27-95-1794ncttmbhbkiBvdhqk XavichakFacility:[facility] Hospitaltart: 53-32-5828Eqt-patient / Non-visitRobert Vasjorge DO Work Phone: [facility]-Heart Rhythm ClinicStart: 08-15-2024 End: 55-41-3930Kvqgxdyxe encounterKirsrosy Zavala APRN.CNP Work Phone: EndocrinologyComment on above:Forms ([employer]- Physcians order)Start: 08-09-2024 End: 10-22-4837Grkkunyxy encounterKirsrosy Zavala APRN.CNP Work Phone: EndocrinologyComment on above:Forms ([employer] - [facility] note)Start: 07-25-2024 End: 33-15-4851ormqwfyltnFMMVGQ TRU TEJEDAFacility:[facility] Start: 07-25-2024 End: 91-99-1873Gtjygyh evaluation of patient and reportGaye TorresBaylor Scott & [facility] FHCComment on above: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, with long-term current use of insulin(HCC) (Primary Dx)Start: 07-21-2024 End: 89-25-7454Hktydfdfi Result EncounterGeneric External Data ProviderNOMS External Department UnsolicitedStart: 07-21-2024 End: 12-99-8899Fyzwhgmbf Result EncounterGeneric External Data ProviderNOMS External Department UnsolicitedStart: 07-21-2024 End: 13-34-2070Kcabfuwze encounterGaye TorresBaylor Scott & [facility] FHCComment on above:AppointmentStart: 07-20-2024 End: 46-10-2323ebncdphdxfCLUDEH J VASCHAKNot AvailableStart: 07-20-2024 End: 86-00-1338Jlfteertkyxg care manage srvc 7 day dischargeYomi Chong NP Work Phone: [facility] IMComment on above:Chronic systolic CHF (congestive heart failure), NYHA class 2 (CMS/HCC) (Primary Dx); Pancreatic insufficiency (CMS/HCC); History of bleeding peptic ulcer; Coronary arteriosclerosis (CMS/HCC); 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); Orthostatic hypotension; BronchitisStart: 16-72-8116Nbf-patient / Non-visitRobert Vaschak DO Work Phone: [facility] Work Phone: Start: 07-16-2024 End: 58-33-2334xpdcpxhmepGlzbhrdwv E DoamekporFacility:[facility] Hospitaltart: 07-16-2024 End: 52-55-0943Mkbwtkquqv and management of inpatientRobert Vaschak DO Work Phone: [facility] Work Phone: Start: 07-16-2024 End: 87-03-7251tyjwlqcphug encounterRobert Vaschak DO Work Phone: [facility] Work Phone: Start: 07-13-2024 End: 14-36-6225R-mail encounter from Hollie TorresBaylor Scott & [facility] FHCStart: 07-13-2024 End: 01-54-0314Mtxvtkhwl encounterGyae Mata RNDiBaylor Scott & White Medical Center [facility] FHCComment on above:Omnipod DASH to 5 pump upgradeStart: 07-13-2024 End: 21-80-7411kqhnfiglblLmcbdt Kravetz RNDiBaylor Scott & [facility] FHCStart: 07-13-2024 End: 27-32-5499Qlstqa follow up visit related to original pxFredric H Itzkowinahomy DO Work Phone: noms ST GENSComment on above:Abdominal wall abscess (Primary Dx)Start: 07-06-2024 End: 66-97-3181Wzicylpjq encounterAyana Zavala APRN.CNP Work Phone: EndocrinologyStart: 07-06-2024 End: 41-13-7913fqoaqzkggtXWRVNIN BAYERFacility:[facility]tart: 07-06-2024 End: 19-50-0268Jxgvfow encounter Margaret Zavala APRN.CNP Work Phone: EndocrinologyComment on above: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, with long-term current use of insulin(HCC) (Primary Dx); 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); Insulin pump statusStart: 07-03-2024 End: 41-38-2124jltatatcuiXRLGBV VARGAS VNot AvailableStart: 07-03-2024 End: 70-40-7834Wfghky follow up visit related to original Charlotte Russo MD Work Phone: noms ST GENSComment on above:Abdominal wall abscess (Primary Dx)Start: 06-20-2024 End: 34-32-9787Aajexmdi Result EncounterFredric H Itzkowitz DO Work Phone: noms External Department UnsolicitedStart: 06-20-2024 End: 27-60-9154Xllxikzp Result EncounterFredric H Itzkowitz DO Work Phone: noms External Department UnsolicitedStart: 06-20-2024 Non-patient / Non-visitRobert Ileana DO Work Phone: [facility]-Heart Rhythm ClinicStart: 06-19-2024 End: 28-15-1894Xirqcknmot and management of inpatientRobert Vasjorge DO Work Phone: [facility] Work Phone: Start: 06-19-2024 End: 95-20-5452zmwfnijbjoIhfnyz JamakFacility:[facility] Hospitaltart: 06-19-2024 End: 95-53-0996Piypdj outpatient visit 40 minutesRobert Khoi Tejeda DO Work Phone: noms [facility] IMComment on above:Abscess of abdominal wall (Primary Dx); ICD (implantable cardioverter-defibrillator) in place; H/O splenectomy; 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); Chronic systolic CHF (congestive heart failure), NYHA class 2 (CMS/HCC); Acquired total absence of pancreasStart: 06-19-2024 End: 66-33-0311agvmqqbbqqNKLPWC Khoi RAPPot AvailableStart: 06-16-2024 End: 52-25-8594Huwenbvllm and management of inpatientRobert Ileana DO Work Phone: [facility] [place] [facility] Work Phone: Start: 05-30-2024 End: 76-91-9533Oqzbopvnwpcm care manage srvc 7 day dischargeRobert Khoi Tejeda DO Work Phone: noms [facility] IMComment on above:ICD (implantable cardioverter-defibrillator) in place (Primary Dx); Hospital discharge follow-up; 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); Acquired total absence of pancreas; Coronary arteriosclerosis (CMS/HCC); Insulin pump in place; 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); Moderate pulmonary arterial systolic hypertension (CMS/HCC); Nonrheumatic mitral valve regurgitation; Chronic systolic CHF (congestive heart failure), NYHA class 2 (CMS/HCC)Start: 05-30-2024 End: 37-15-0057lgbdjvfabbSVENSE J JAMAKNot AvailableStart: 62-33-4299Dzr- patient / Non-visitRobert Vaschak DO Work Phone: [facility] Work Phone: Start: 05-24-2024 End: 73-68-3756Qwtbtxjzvh and management of inpatientRobert Vaschak DO Work Phone: [facility] [place] [facility] Work Phone: Start: 53-49-3316Yep-patient / Non-visitRobert Vaschak DO Work Phone: [facility]-Heart Rhythm ClinicStart: 05-16-2024 End: 87-26-0287Lrwjfvq encounter procedureDO Marie Tejeda Work Phone: [facility]-Pre-Surgical Testing Work Phone: Start: 05-16-2024 End: 91-47-0714kbpyjevvwvAS Marie Tejeda Work Phone: [facility] Work Phone: Start: 31-83-5948Vhkxoyhcm for preprocedural laboratory examinationSRiley Hospital for Children Physician GroupStart: 05-10-2024 End: 31-55-1456kjrpgybigqWA Marie Tejeda Work Phone: [facility] Work Phone: Start: 05-10-2024 End: 42-02-1829Xmcqubt encounter procedureDO Marie Tejeda Work Phone: [facility] Work Phone: Start: 04-26-2024 End: 32-30-3324elkrcrwzuqUG Marie Tejeda Work Phone: [facility] Work Phone: Start: 04-26-2024 End: 62-04-8866Fqdbsme encounter procedureDO Marie Tejeda Work Phone: [facility] Work Phone: Start: 04-26-2024 End: 63-62-8114Qzaquvo encounter procedureDO Marie Yunbrody Work Phone: [facility]-Heart Rhythm ClinicStart: 04-26-2024 End: 88-64-9808wblodsztojER Marie Tejeda Work Phone: [facility] Work Phone: Start: 04-24-2024 End: 70-72-1567Ckrzht outpatient visit 25 minutesAnatoly Anne NP Work Phone: noms SWS IMComment on above:Pancreatic insufficiency (CMS/HCC) (Primary Dx); Coronary arteriosclerosis (CMS/HCC); 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 (CMS/HCC); 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); H pylori ulcerStart: 04-17-2024 End: 84-02-3618Hnspjn outpatient visit 40 minutesMarie Westfall Xavijorge CUTRIS Work Phone: noms SWS IMComment on above:Bronchitis [...] systolic congestive heart failure (CMS/HCC)Start: 04-17-2024 End: 39-05-9439Uqblfvk encounter procedureRobert Khoi Tejeda DO Work Phone: noms HealthcareStart: 04-05-2024 End: 94-12-6836tqusgvrfmqYUCKQJXSCommunity Memorial Hospital Start: 03-27-2024 End: 89-54-8789skjhstktlzIR Marie Tejeda Work Phone: [facility] Work Phone: Start: 03-27-2024 End: 00-79-1118Gqrbjse encounter procedureDO Marie Tejeda Work Phone: [facility] Work Phone: Start: 03-15-2024 End: 56-18-0850aayqrygbenRR Marie Tejeda Work Phone: [facility] Work Phone: Start: 03-15-2024 End: 47-73-9099Sbczuaq encounter procedureDO Marie Tejeda Work Phone: [facility] Work Phone: Start: 03-10-2024 End: 26-33-3843lxmbuuomqjBL Marie Tejeda Work Phone: [facility] Work Phone: Start: 03-10-2024 End: 60-65-5581Rgkkcctyvs RecurringDO Marie Tejeda Work Phone: [facility]-Infusion Therapy - O/P Work Phone: Start: 03-09-2024 End: 07-63-8282Eemugbm encounter procedureDO Marie Tejeda Work Phone: [facility]-Electrodiagnostics Work Phone: Start: 03-09-2024 End: 66-36-3216ohkrowfmiaJB Marie Tejeda Work Phone: [facility] Work Phone: Start: 18-57-0942Gbk-patient / Non-visitDO Marie Xavijorge Work Phone: [facility] Work Phone: Start: 67-68-3579Nprclcirdp RecurringDO Marie Hurleysunithabrody Work Phone: [facility]-Infusion Therapy - O/P Work Phone: Start: 02-29-2024 End: 13-50-5643krsibshrliPA Marie Hurleyjorge Work Phone: [facility] Work Phone: Start: 02-29-2024 End: 45-42-0959Pveizju encounter procedureDO Marie Xavijorge Work Phone: [facility] Work Phone: Start: 02-16-2024 End: 34-06-0763zebdrbbarsWI Marie Tejeda Work Phone: [facility] Work Phone: Start: 02-16-2024 End: 32-96-8381Vxeovom encounter procedureDO Marie Hurleysunithabrody Work Phone: [facility]-Lab Main Roundup Work Phone: Start: 02-15-2024 End: 88-18-9139dvpodkwqbdZR Marie Hurleysunithabrody Work Phone: [facility] Work Phone: Start: 02-15-2024 End: 46-11-6421Sonmaje encounter procedureDO Marie Tejeda Work Phone: [facility] [facility] Work Phone: Start: 02-14-2024 End: 51-13-2348nznnwdsrfcZI Marie Xavijorge Work Phone: [facility] Work Phone: Start: 02-14-2024 End: 20-76-0068Fcsdana encounter procedureDO Marie Tejeda Work Phone: [facility]-Lab [facility] Work Phone: Start: 02-11-2024 End: 39-44-5765kgeoncksmsKB Marie Tejeda Work Phone: [facility] Work Phone: Start: 02-11-2024 End: 30-99-3882Ejlsljl encounter procedureDO Marie Tejeda Work Phone: [facility] Work Phone: Start: 55-74-6047Brk-patient / Non-visitDO Marie Tejeda Work Phone: [facility] Work Phone: Start: 88-66-6713Kth-patient / Non-visitDO Marie Tejeda Work Phone: [facility] Work Phone: Start: 02-05-2024 End: 98-31-5965Vnrdoyygfc and management of inpatientDO Marie Tejeda Work Phone: [facility] [place] [facility] Work Phone: Start: 01-24-2024 End: 21-19-0794qcpjrqxfznIGXM D BROOKENSProMedica Jesup HospitalStart: 01-21-2024 End: 15-47-8280Nhtkkbrngo and management of inpatientVENU GOSCOTTA Светлана EUCEDANA [facility] HospitalStart: 12-28-2023 End: 66-77-7136Ulhcweenb Result EncounterGeneric External Data ProviderNOMS External Department UnsolicitedStart: 12-28-2023 End: 69-87-2318Vjrvevmtw Result EncounterGeneric External Data ProviderNOMS External Department UnsolicitedStart: 34-29-3138Inm-patient / Non-visitDO Marie Hurleyjorge Work Phone: [facility] Work Phone: Start: 11-11-2023 End: 06-68-2846Stnowzlry to same day surgery centerDO Marie Hurleyjorge Work Phone: [facility]-Digestive Health Work Phone: Start: 11-04-2023 End: 18-84-5253kjqfbtxocoPxgy ProviderFacility:[facility] Hospitaltart: 10-28-2023 End: 78-71-7587pcdgedkmfvKL Marie Tejeda Work Phone: [facility] Work Phone: Start: 10-28-2023 End: 76-19-8927Nmtoasf encounter procedureDO Marie Yunbrody Work Phone: [facility] Work Phone: Start: 10-21-2023 End: 45-32-1679ircrfsvcuwER Marie Tejeda Work Phone: [facility] Work Phone: Start: 10-21-2023 End: 54-06-3819Myguhus encounter procedureDO Marie Tejeda Work Phone: [facility] Work Phone: Start: 10-13-2023 End: 92-01-3502cczrphuqovBces ProviderFacility:[facility] Hospitaltart: 09-28-2023 End: 27-90-1805ljptpirmcfOB Marie Yunbrody Work Phone: [facility] Work Phone: Start: 09-28-2023 End: 19-21-8021Hhuzxkd encounter procedureDO Marie Yunbrody Work Phone: [facility] Work Phone: start: 09-27-2023 End: 93-61-0021mulnlxdbhcKD Marie Tejeda Work Phone: [facility] Work Phone: Start: 09-27-2023 End: 31-53-1922Gmrirohyss RecurringDO Marie Tejeda Work Phone: [facility]-Infusion Therapy - O/P Work Phone: Start: 09-24-2023 End: 18-34-6882rroxfierlqOU Marie Tejeda Work Phone: [facility] Work Phone: Start: 09-24-2023 End: 99-67-6931Dagzmmp encounter procedureDO Marie Tejeda Work Phone: [facility]-XRay [facility] Work Phone: Start: 24-74-9105Mej-patient / Non-visitDO Marie Tejeda Work Phone: [facility] Work Phone: Start: 84-34-7439Rqy-patient / Non-visitDO Marie Tejeda Work Phone: [facility] Work Phone: Start: 08-31-2023 End: 33-10-1817Atlvmmxmug and management of inpatientDO Marie Tejeda Work Phone: [facility] [place] [facility] Work Phone: Start: 08-16-2023 End: 11-99-2623wdpnutznwuINYLZ K SMITHSunflower tic Other Start: 08-16-2023 End: 36-31-2523Twgpii outpatient visit 15 minutesSammy Berman CLINICAL LAB CLERK-SHIRT HEMMER Work Phone: uh [facility] harbor community hospitalComment on above:Cardiomyopathy, ischemic (Primary Dx); ASHD (arteriosclerotic heart disease); BMI 20.0-20.9, adult; OrthopneaStart: 02-82-4394Bdicfijyg encounterLinda NjorogeFPG CardiologyStart: 07-27-2023 End: 61-35-5444zutwlshxipGP Marie Hurleyjorge Work Phone: [facility] Work Phone: Start: 07-27-2023 End: 08-87-3618Zcibrtv encounter procedureDO Marie Yunbrody Work Phone: [facility] Start: 07-16-2023 End: 24-38-3064Xmbkanren to same day surgery centerDO Marie Hurleyjorge Work Phone: [facility]-Dimpling Machine Operator Work Phone: Start: 07-16-2023 End: 46-01-0917nhedwjlsrcEM Marie Hurleyjorge Work Phone: [facility] Work Phone: Start: 06-23-2023 End: 95-01-6985qheiuodaurTXSMD [facility] AmbulatoryStart: 06-22-2023 End: 78-56-3809enlnirjlwbKagppqp Howie Other [facility] tic Other Start: 66-89-4827Qigemqnzr encounterColleen [facility] OrthopedicsStart: 06-11-2023 End: 92-10-0498cjgmprkxmlOT Marie Tejeda Work Phone: [facility] Work Phone: Start: 06-11-2023 End: 08-89-1975Qevfpfj encounter procedureDO Marie Yunbrody Work Phone: [facility] Start: 06-02-2023 End: 27-54-8447aoezohduxcSOCYKEY PROVIDERFacility:METROHealthStart: 05-26-2023 Telephone encounterColljace [facility] OrthopedicsStart: 05-26-2023 End: 04-91-0496homallworaVJ Marie Tejeda Work Phone: [facility] Work Phone: Start: 05-26-2023 End: 97-38-6505Wylbloa encounter procedureDO Marie Tejeda Work Phone: [facility] Start: 05-25-2023 End: 30-91-4000jkxtqfhfdqPYRQGWNAscension [facility] AmbulatoryStart: 05-25-2023 End: 85-12-9465Ynhacs consultation new/estab patient 62 [address] [facility] Work Phone: [facility] HospitalComment on above:NSTEMI (non-ST elevated myocardial infarction) (CMS/HCC) (Primary Dx); Abnormal stress test; ASHD (arteriosclerotic heart disease); Essential hypertension; Diabetes mellitus type II, non insulin dependent (CMS/HCC); Closed fracture of right hip, initial encounter (CMS/HCC)Start: 05-21-2023 End: 18-64-9614qbzdwmvuwsSovqgiq [place] Other [facility] Other Start: 62-90-3091Sfbcnr follow up visit related to original pxCotrent [facility] OrthopedicsStart: 05-21-2023 End: 17-82-8424Cqwnpny encounter procedureDO Marie Tejeda Work Phone: [facility] Start: 05-03-2023 End: 68-20-3802Oirevavnbk and management of inpatientDO Marie Tejeda Work Phone: [facility] [place] [facility] Work Phone: Start: 04-28-2023 End: 67-26-5669Ogxtsqnqcu and management of inpatientDO Marie Tejeda Work Phone: [facility] [place] [facility] Work Phone: Start: 04-23-2023 End: 86-19-3645becdehtlovNjzf ProviderFacility:[facility] Hospitaltart: 04-12-2023 End: 07-02-9630Kpivgvzdj Result EncounterGeneric External Data ProviderNOMS External Department UnsolicitedStart: 04-12-2023 End: 90-36-3466Ephlirnbk Result EncounterGeneric External Data ProviderNOMS External Department UnsolicitedStart: 01-20-2023 End: 71-38-6465Mnxvego encounter procedureAnatoly Anne RESCUE WORKER Work Phone: [facility] HealthcareStart: 06-05-2022 End: 62-12-6731sdqzlthqtdBK MARIE XAVIUC [facility] HOSPITALFacility:O5Epjdj: 81-52-7017Oibdeveif for other specified special examinationsDR [facility] Start: 05-14-2022 End: 52-34-1607vccpkrhzynDH MARIE [facility] Medical Centercility:J4Zyhme: 05-14-2022 End: 44-51-3823Zfaooaoab for other specified special examinationsDR [facility] Thomascility:W5Cziao: 01-02-2022 End: 43-19-6506Vehmmdlcxr and management of inpatientDELON CARRIONNewark Hospitaltart: 01-02-2022 End: 70-97-5654Ypdtjccskj and management of inpatientGray Ross MD Work Phone: stVZ 4B StepdownComment on above:Acute gastric ulcer with perforation (HCC) (Primary Dx); Gastric perforation (HCC)Start: 01-02-2022 End: 95-22-9722kdtrpzhqonYH BENJAMIN BALLFacility:H1 Procedures DateProcedureProcedure DetailPerforming ClinicianStart: 23-25-8723CACWuidmrl External Data ProviderStart: 80-78-9912QQABmdvwir External Data ProviderStart: 71-08-3073ART GLUCOSE P FAST SERPL-MCNCGeneric External Data ProviderStart: 55-77-6062SCX PRO BNPGeneric External Data ProviderStart: 71-29-2484GTC CMP (CMP) (FOR REMOTE [facility] USE)Generic External Data ProviderStart: 02-13-2025 GLUTAMIC AC DECARBOXYLASE ABAyana Zavala APRN.SHIRT HEMMER Work Phone: Start: 25-33-9889EGC HEMOGLOBIN K2SJmbpemp External Data ProviderStart: 50-83-2292ISP GLUCOSE BLOODGeneric External Data Provider Start: 38-51-8197Xfwjcqppcy bloodRobert J Vaschak DO Work Phone: Start: 54-37-1404Wsgnjpwlxj A1c/Hemoglobin.total in Kassidy Zavala APRN.SHIRT HEMMER Work Phone: Start: 74-93-4244TNY BASIC METABOLIC PANELGeneric External Data ProviderStart: 85-24-1227CEM PRO BNPGeneric External Data Provider Start: 32-97-2840ZNO BASIC METABOLIC PANELGeneric External Data ProviderStart: 40-45-3783PMJ PRO BNPGeneric External Data ProviderStart: 99-15-9428HKV BASIC METABOLIC PANELGeneric External Data ProviderStart: 71-76-9301Swwnstxtgik Panel (PCR)Marie Vassunithak DO Work Phone: Start: 70-23-5571CR angiography of thoraxRobert Vaschak DO Work Phone: Start: 85-42-4571Suxqq chest X-rayRobert Vassunithak DO Work Phone: Start: 51-37-4041Tybj bld gluc mntr dev cleared fda spec home useKirsrosy Zavala APRN.SHIRT HEMMER Work Phone: Start: 34-94-7868VYKFST ON DEMANDCcf ProviderStart: 03-97-0393Amepaxrpuc A1c/Hemoglobin.total in Kassidy Zavala APRN.SHIRT HEMMER Work Phone: Start: 85-20-9700EhzltvtfobrRgapco Vassunithak DO Work Phone: Start: 50-02-8504Duwijjl microbial cultureRobert Vassunithak DO Work Phone: Start: 09-17-3210Wpemnaosr microbial cultureRobert Vassunithak DO Work Phone: Start: 96-52-5348Uwzt stain microscopyRobert Vassunithak DO Work Phone: Start: 73-68-4341KUWAMSQ CULTUREFredric H Itzkowitz DO Work Phone: Start: 51-96-7668OYMSMLKZJ CULTUREFredric H Itzkowitz DO Work Phone: Start: 74-36-7964Ynfdhcg microbial cultureRobert Jamak DO Work Phone: Start: 81-02-7115Klzggick identified in Blood by CultureRobert Vassunithak DO Work Phone: start: 46-57-1476SE of abdomen with contrastRobert Ileana DO Work Phone: Start: 75-35-3395Evxab chest X-rayRobert Ileana DO Work Phone: Start: 23-78-2271Sfmhouwvlsmv of cardiac pacemaker Marie Tejeda DO Work Phone: Start: 54-76-9703Rbszdjjwwk glycosylated m5vTyhlss Khoi Tejeda DO Work Phone: Start: 41-21-3067PmtyvmxehyusdxcjfeganmccdbGU Marie Tejeda Work Phone: Start: 46-58-1665UK cervical spine without contrastDO Marie Tejeda Work Phone: Start: 30-17-0186VS of head without contrastDO Marie Tejeda Work Phone: Start: 04-07-9236Bnirn chest X-rayDO Marie Tejeda Work Phone: Start: 71-48-0616Hbltv Occult Blood (DORON)DO Marie Tejeda Work Phone: Start: 95-59-8189Iub spinal canal cervical w/o contrast matrlGeneric External Data ProviderStart: 11-11-2023 EsophagogastroduodenoscopyDO Marie Tejeda Work Phone: Start: 31-29-3236V-ray of cervical spineDO Marie Tejeda Work Phone: Start: 63-57-5239W-ray of cervical spineDO Marie Tejeda Work Phone: Start: 94-97-1440XADDCG UP IN CARDIOLOGYSAINT MONICA'S HOME SHELDONStart: 40-64-0529Qnlbr X-ray of right hipDO Marie Tejeda Work Phone: Start: 64-47-3128CI PCI REAL ESTATE REPRESENTATIVE Ea Add LADDO Marie Tejeda Work Phone: Start: 52-01-9177XE Stent 1st Vessel LAD DESDO Marie Tejeda Work Phone: Start: 82-42-4283YNCAFW UP IN CARDIOLOGYSAINT MONICA'S HOME SHELDONStart: 72-22-4593Omlmi X-ray of right femurDO Marie Tejeda Work Phone: Start: 95-37-2326SDT 12-LEADSAINT MONICA'S HOME SHELDONStart: 01-74-1367Suy routine ecg w/least 12 lds w/i&rWilliam S Ryan DO Work Phone: Start: 59-12-9165Kyswv X-ray of right hipDO Marie Tejeda Work Phone: Start: 04-30-2023 End: 01-58-6930Ksibd X-ray of right hipDO Marie Tejeda Work Phone: Start: 61-06-8697Agdd reduction of fracture with internal fixationDO Marie Tejeda Work Phone: Start: 69-74-9017Dtsjr chest X-rayDO Marie Tejeda Work Phone: Start: 52-72-1060WH LHC & COR AngioDO Marie Tejeda Work Phone: Start: 09-35-0953Yxtn reduction of fracture with internal fixationDO Marie Tejeda Work Phone: Start: 17-70-9591Boqnw chest X-rayDO Marie Tejeda Work Phone: Start: 82-05-3063Akopj X-ray of right femurDO Marie Tejeda Work Phone: Start: 89-13-5674Tinig X-ray of right hipDO Marie Tejeda Work Phone: Start: 62-44-1549BR RENAL AND BLADDERGeneric External Data ProviderStart: 31-53-2046Legwh of magnesiumBreana Johnson MD Work Phone: Start: 65-88-2680FGNWV METABOLIC PANEL W/ REFLEX TO MG FOR LOW KMatthew T Slack DO Work Phone: Start: 13-13-6316YDRYZEVO PLATELET FRACTIONBreana Johnson MD Work Phone: Start: 97-00-7068Rjojq of phosphorus inorganicMatthew T Slack DO Work Phone: Start: 99-96-0856BQAKZ METABOLIC PANEL W/ REFLEX TO MG FOR LOW KMatthew T Slack DO Work Phone: Start: 77-31-1605MGSVRRNK PLATELET FRACTIONBreana Johnson MD Work Phone: Start: 74-47-3037Kvmqcxptxy exam upr gi trc single contrast Jose Johnson MD Work Phone: Start: 59-56-5703Ncdet of magnesiumKings Francis MD Work Phone: Start: 59-30-0812AQTXN METABOLIC PANEL W/ REFLEX TO MG FOR LOW KAarocayla Francis MD Work Phone: Start: 21-71-4569TNPDJBRA PLATELET FRACTIONBreana Johnson MD Work Phone: Start: 88-65-1499Bxnkw of magnesiumAaron N Andrea OGLESBY Work Phone: Start: 36-74-0261AZNKC METABOLIC PANEL W/ REFLEX TO MG FOR LOW KAaron N Andrea OGLESBY Work Phone: Start: 48-17-3164Qjnxs of phosphorus inorganicKings Francis MD Work Phone: Start: 43-80-2573JGOHV METABOLIC PANEL W/ REFLEX TO MG FOR LOW KAaron N Andrea OGLESBY Work Phone: Start: 44-78-5123Dfptx of magnesiumAaron Cayla Francis MD Work Phone: Start: 66-58-9766MEBBC METABOLIC PANEL W/ REFLEX TO MG FOR LOW KAaron N Andrea OGLESBY Work Phone: Start: 30-22-6404Mbxge of phosphorus inorganicAaron N Andrea OGLESBY Work Phone: Start: 35-33-7399OOTRI METABOLIC PANEL W/ REFLEX TO MG FOR LOW KAaron N Andrea OGLESBY Work Phone: Start: 01-04-2022 End: 96-34-5886Mjaal of phosphorus inorganicAaron N Andrea OGLESBY Work Phone: Start: 44-93-7012OHQSQ METABOLIC PANEL W/ REFLEX TO MG FOR LOW KAaron N Andrea OGLESBY Work Phone: Start: 39-16-3902Ohbinwi blood reagent stripDelon Carrion DOStart: 01-04-2022 End: 74-44-5827Vcxgj of phosphorus inorganicAaron Cayla Francis MD Work Phone: Start: 89-28-8898RASAC METABOLIC PANEL W/ REFLEX TO MG FOR LOW KAaron N Andrea OGLESBY Work Phone: Start: 01-03-2022 End: 64-77-4728Xudvv of phosphorus inorganicAaron Cayla Francis MD Work Phone: Start: 04-01-2401GVBCJ METABOLIC PANEL W/ REFLEX TO MG FOR LOW KAaron N Andrea OGLESBY Work Phone: Start: 01-03-2022 End: 97-48-7042Iizfutj blood reagent stripDelon Carrion DOStart: 01-03-2022 Glucose blood reagent stripDelon Carrion DOStart: 01-03-2022 End: 25-16-7468Apkti of phosphorus Jung Francis MD Work Phone: Start: 90-31-7329EYBNK METABOLIC PANEL W/ REFLEX TO MG FOR LOW Jessicacayla Francis MD Work Phone: Start: 01-03-2022 End: 83-39-5631Atjtevy blood reagent stripDelon Carrion DOStart: 01-03-2022 Glucose blood reagent stripDelon Carrion DOStart: 01-03-2022 End: 69-10-6865Hkgxj of phosphorus Jung Francis MD Work Phone: Start: 66-41-3213BGNQW METABOLIC PANEL W/ REFLEX TO MG FOR LOW Palmira Francis MD Work Phone: Start: 01-03-2022 End: 68-69-3546Bdgnz of phosphorus Jung Francis MD Work Phone: start: 25-02-2384EQUZE METABOLIC PANEL W/ REFLEX TO MG FOR LOW KISHANmilena Francis MD Work Phone: Start: 01-03-2022 End: 99-88-3219Cdsyizw blood reagent stripDelon Carrion DOStart: 01-03-2022 End: 35-37-1859Ntbxd of phosphorus Jung Francis MD Work Phone: Start: 45-33-0707XFIWD METABOLIC PANEL W/ REFLEX TO MG FOR LOW KISHANmilena Francis MD Work Phone: Start: 01-03-2022 End: 79-21-6766Zwzaqgn blood reagent stripDelon Carrion DOStart: 01-02-2022 Glucose blood reagent stripDelon Carrion DOStart: 01-02-2022 End: 62-04-1770Ahyolaj blood reagent stripJohn J Leskovan DOStart: 01-02-2022 Radiologic exam abdomen 1 viewTricia Ange DOStart: 60-08-1887Wqvtdbo bacterial quanttative colony count urineTristan Bueno DO Work Phone: Start: 01-02-2022 End: 94-64-1150Janzmev blood reagent stripDelon Carrion DOStart: 01-02-2022 End: 67-53-5106CVMFA RESECTION HEMICOLECTOMY LAPAROSCOPIC ROBOTICTristan Bueno DO Work Phone: Start: 01-02-2022 End: 88-05-7774WBB DIAGNOSTIC ONLYTristan Bueno DO Work Phone: Start: 52-93-7124Lloyh metabolic panel calcium total Breana Johnson MD Work Phone: Start: 05-24-1000Ecucomp function panelBreana Johnson MD Work Phone: Start: 88-71-9957OCWKIGC, SEPSISJumarianne Johnson MD Work Phone: Start: 95-51-7305Zihbrvk blood reagent stripGray Ross MD Work Phone: Start: 12-30-2019H/O splenectomyH/O splenectomyYuerong Cally RESCUE WORKER Work Phone: AppendectomyTristan MELCHOR Cardiac pacemaker, device (physical object)Tristan MELCHOR Extraction of cataractTristan MELCHOR H/O splenectomyH/O splenectomyRobert J Vaschak DO Work Phone: H/O splenectomyH/O splenectomyRobert J Vaschak DO Work Phone: H/O splenectomyH/O splenectomyRobert J Vaschak DO Work Phone: H/O splenectomyWalkerory JULIO H/O splenectomyH/O splenectomyAmy Warchol RESCUE WORKER Work Phone: PancreatectomyTristan MELCHOR Placement of stent in cardiac conduitTristan MELCHOR TonsillectomyTristan MELCHOR Plan of Treatment DateCare ActivityDetailAuthorStart: 76-82-9179Xbzfw microalbumin profile DTaP,Tdap,Td Vaccine (4 - Td or Tdap)[facility]art: 03-18-2028 DTaP/Tdap/Td vaccine (3 - Td or Tdap)DTaP/Tdap/Td vaccine (3 - Td or Tdap)[facility]ENTERStart: 06-56-3195FKzM/Tdap/Td Vaccines (3 - Td or Tdap) DTaP/Tdap/Td Vaccines (3 - Td or Tdap)[facility] HospitalStart: 94-28-9991Hbaxppft ScreeningDiabetes ScreeningCincinnati VA Medical Centertart: 09-25-2025 Hepatitis B screeningUrine Albumin:Creatinine RatioCincinnati VA Medical Centertart: 13-41-0676Dvyoewsqx B surface antibody levelLDL CholesterolOhiohealth Start: 38-99-4586Ocxci screening for proteinDiabetes: Urine Protein Screening [facility] HealthcareStart: 38-41-4383Yumyltwrqm A1c measurementDiabetes: Hemoglobin O2MKINJ HealthcareStart: 06-21-2025 End: 81-62-8559Fmmllso encounter gkndcvezg65/11/2025 1:00 PM EST Office Visit [facility] [address] [place] [address] Marga Robledo NP [address] [place] [address] [facility] MedicineStart: 10-07-2025Medicare Annual Wellness (AWV)Medicare Annual Wellness (AWV)[facility] HealthcareStart: 04-09-2025 End: 50-65-3086Ickubxv encounter allyysksu88/29/2025 2:00 PM EDT Office Visit Endocrinology [address] [place], [place] [id number] Ayana Zavala APRN.SHIRT HEMMER [address] [place] [address] *R/S from 01/25EndocrinologyComment on above:*R/S from 01/25Start: 72-47-1787EwwughpMemorial Health System [facility] Work Phone: Start: 70-35-0881RLSTE-19 Vaccine ( season) COVID-19 Vaccine ( season)[facility] HealthcareStart: 56-49-8078Mhvooghit vaccinationInfluenza Vaccine (#1)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, with long-term current use of insulin (HCC) Expected: 02/06/2025, Expires: 05/08/2025[facility] Work Phone: Comment on above:Expected: 02/06/2025, Expires: 05/08/2025Start: 02-05-2025 End: 05-07-2025 peptide [Mass/volume] in Serum or PlasmaC-PEPTIDE BLD Lab Routine 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, with long-term current use of insulin (HCC) Expected: 02/05/2025, Expires: 05/07/2025 [facility]Comment on above:Expected: 02/05/2025, Expires: 05/07/2025Start: 02-05-2025 End: 55-07-8294Fqppxly glucose [Mass/volume] in Serum or PlasmaGLUCOSE, FASTING Lab Routine 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 [address] 2 month follow up DMEndocrinologyComment on above:2 month follow up DMStart: 01-16-2025 End: 18-21-3785Zlaikfiutksm / ancillary services pkkdtnwjyo83/08/2025 11:30 AM EDT Ancillary Procedure [facility] [address] [place] [address] [address]Start: 01-03-2025 End: 63-80-2049Ybvizdxeib [Mass/volume] in Serum or PlasmaCreatinine, Serum Lab Routine Pleurisy Expected: 01/03/2025 (Approximate), Expires: 01/03/2026[facility] HealthcareComment on above:Expected: 01/03/2025 (Approximate), Expires: 01/03/2026Start: 01-03-2025 End: 70-97-9329DHN Chest vessels WO and W contrast IVCT angiogram chest Imaging Routine Pleurisy Expected: 01/03/2025 (Approximate), Expires: 04/05/2025[facility]Gold[facility] Work Phone: Comment on above:Expected: 01/03/2025 (Approximate), Expires: 04/05/2025Start: 93-00-5081Moorltiu screeningDiabetes: Retinopathy ScreeningST. MARK'S HOS[facility]ITAL HealthcareStart: 65-95-7889Kfrtq-19 Vaccine ( season) Covid-19 Vaccine ( season)[facility] Centertart: 10-26-2024 End: 84-37-2641Icskjwc encounter dglaeoigb86/17/2025 12:15 PM EDT Office Visit Endocrinology [address] [place] [address] Ayana Zavala, CLINICAL LAB CLERK.SHIRT HEMMER [address] [place] [address] Return in about 4 weeks (around 10/23/2024). EndocrinologyComment on above:Return in about 4 weeks (around 10/23/2024).Start: 25-92-3388Syamwctsia A1c measurementUniversity Health Lakewood Medical CenterStart: 09-25-2024 End: 42-43-3055Lqoxuvm encounter dhjpdzzto97/17/2025 2:30 PM EDT Office Visit Endocrinology [address] [facility] [place] [address] Ayana Zavala, CLINICAL LAB CLERK.SHIRT HEMMER [address] [place] [address] Return in about 6 weeks (around 08/17/2024). EndocrinologyComment on above:Return in about 6 weeks (around 08/17/2024).Start: 09-25-2024 End: 43-42-8816Hjzjmoqatqdja metabolic 2000 panel - Serum or PlasmaAvita Health System Work Phone: Comment on above:Expected: 09/25/2024, Expires: 12/25/2024Start: 09-25-2024 End: 56-61-8812LNWKC PANEL, NONFASTINGOhiohealthComment on above:Expected: 09/25/2024, Expires: 12/25/2024Start: 09-25-2024 End: 19-43-2865Tkmmroxspnnh/Creatinine [Mass Ratio] in UrineOhiohealth Comment on above:Expected: 09/25/2024, Expires: 12/25/2024Start: 71-82-2290Orfqu screening for proteinDiabetes: Urine Protein ScreeningUniversity Health Lakewood Medical CenterStart: 09-04-2024 End: 12-89-7529Rrlfiie evaluation of patient and fcdoyx7309/04/2024 1:00 PM EST Nurse Visit [facility] [address] [place] [address] Gaye Mata, KARIN Omnipod DASH to Omnipod 5 upgrade with Dexcom G7 [address]DiCH[address] Luke's Health – Sugar Land HospitalCComment on above:Omnipod DASH to Omnipod 5 upgrade with Dexcom G7 trainingStart: 08-29-2024 End: 96-71-7160Cxhkiam encounter /18/2025 1:30 PM EST Office Visit Endocrinology [address] [place] [address] Ayana Zavala, AMADA.SHIRT HEMMER [address] [place] [address] Return in about 6 weeks (around 08/17/2024). EndocrinologyComment on above:Return in about 6 weeks (around 08/17/2024).Start: 08-18-2024 End: 95-13-8483Rcfpxsq encounter ypcuepdja14/07/2025 8:30 AM EST Office Visit Endocrinology [address] [place] [address] Ayana Zavala, CLINICAL LAB CLERK.SHIRT HEMMER [address] [address] Return in about 6 weeks (around 08/17/2024). EndocrinologyComment on above:Return in about 6 weeks (around 08/17/2024).Start: 08-02-2024 End: 45-90-6411Zsdwrrz encounter jtpnjtgha92/22/2025 10:00 AM EST Office Visit [facility] [address] [place] [phone] Marie Tejeda DO [address] [place] [address] [facility] IMStart: 07-25-2024 End: 31-89-4672Xwvhryp evaluation of patient and wcgkpc6307/25/2024 1:00 PM EST Nurse Visit [facility] [address] [place] [address] Gaye Mata, RN Omnipod 5 upgrade from duuin with Dexcom G6 CGM. Needs carb counting. Coming from [place], [place] with [facility] FHCComment on above:Omnipod 5 upgrade from duuin with Dexcom G6 CGM. Needs carb counting. Coming from [place] with Start: 07-20-2024 End: 54-65-2448Uylki metabolic 1998 panel - Serum or PlasmaBasic metabolic panel Lab Routine Chronic systolic CHF (congestive heart failure), NYHA class 2 ([facility]) Expected: 07/20/2024 (Approximate), Expires: 07/24/2024NOGolden Valley Memorial [facility] Work Phone: Comment on above:Expected: 07/20/2024 (Approximate), Expires: 07/24/2024Start: 25-98-8083Cykepyskct A1c measurementDiabetes: Hemoglobin Z6CVRTXUniversity Health Lakewood Medical CenterStart: 07-17-2024 End: 75-04-8388ZyraazslxMemorial Hospitaltart: 61-25-3946Cofulutp to cardiologistMemorial Hospitaltart: 11-09-3685Hfibugcekla pathogens DNA and RNA panel - Nasopharynx by ANASTASIA with non-probe detection [facility]: 70-78-1813Xcmreoly therapy procedure [facility]: 76-72-5042Oaqyjixt to occupational therapistMemorial Hospitaltart: 52-37-4471JmkolbzglMemorial Hospitaltart: 62-92-5135Fswzsvoc admissionMemorial Hospitaltart: 07-13-2024 End: 84-06-8437Svjmxax encounter wpjgonxxv43/02/2025 10:45 AM EST Office Visit NETO ESPINOSA [address] [facility] [address] [place] [phone] Stephanie Sheridan DO [address] [facility] [address] [place] [address] NOMKasey NAIKtart: 03-43-4192Hdigwpx Directive DiscussionAdvance Directive DiscussionCincinnati VA Medical Centertart: 07-03-2024 End: 86-44-2693Kxtmvyg encounter vuzngrxff15/23/2024 9:00 AM EST Office [facility] [address] [place] [address] Beto Russo MD [address] [place] [address] ALDRICHtart: 13-17-9544YvnfiqnfpRegency Hospital Cleveland East Start: 01-35-0899Vrcngtly to general surgeonRegency Hospital Cleveland East Start: 45-51-1603Pknxgnjk admissionMemorial Hospitaltart: 06-19-2024 End: 39-54-3445Ytffxew encounter wsntsqibt45/09/2024 3:00 PM EST Office Visit [facility] [address] [place] [phone] Marie Tejeda DO [address] [place] [address] [facility] IMStart: 06-18-2024 End: 59-57-9764NlrnmayquMemorial Hospitaltart: 47-91-5595DezyutguuMemorial Hospitaltart: 03-75-5001Pngqodii admissionMemorial Hospitaltart: 19-79-3979Beixngxu to infectious diseases physician [facility]: 72-01-3356Zxrggwcu of Abdomen Subcutaneous Tissue and Fascia, Open ApproachDrainage of Abdomen Subcutaneous Tissue and Fascia, Open ApproachMemorial Hospitaltart: 25-89-8456YhsxjjoneMemorial Hospitaltart: 53-42-0211Xuosgcjb admission [facility]: 03-58-1876FjrvuxdxxMemorial Hospitaltart: 96-31-1607MaesixrjdTrinity Health System CenterStart: 05-24-2024 Insertion of Defibrillator Generator into Chest Subcutaneous Tissue and Fascia, Open ApproachInsertion of Defibrillator Generator into Chest Subcutaneous Tissue and Fascia, Open ApproachMemorial Hospitaltart: 05-24-2024 Insertion of Defibrillator Lead into Right Atrium, Percutaneous Approach Insertion of Defibrillator Lead into Right Atrium, Percutaneous Approach [facility]: 10-22-6227Qknhvkubc of Defibrillator Lead into Right Ventricle, Percutaneous ApproachInsertion of Defibrillator Lead into Right Ventricle, Percutaneous ApproachRegency Hospital Cleveland East Start: 60-62-6101TttoshrgzMemorial Hospitaltart: 11-38-3993UfenmonkcMemorial Hospitaltart: 26-25-1304Gdlntbwt to gastroenterologistMemorial Hospitaltart: 53-64-9636Qftgqywl admissionMemorial Hospitaltart: 59-98-2585JI cervical spine without contrastCT cervical spine wo [facility]: 11-59-5617EX Cervical spine WO contrastMemorial Hospitaltart: 03-18-5541ZB of head without contrastCT head/brain wo [facility] Hospitaltart: 66-30-0569RQ Unspecified body region WO [facility]art: 06-73-7404Jsowb chest X-rayXR chest 1V portableRegency Hospital Cleveland East Start: 89-42-2253GI Chest Single viewMemorial Hospitaltart: 34-69-0274Chelimj Bleeding in Gastrointestinal Tract, Via Natural or Artificial Opening EndoscopicControl Bleeding in Gastrointestinal Tract, Via Natural or Artificial Opening EndoscopicTrinity Health System CenterStart: 11-11-2023 [facility] CenterStart: 89-21-9705IjhwostudTrinity Health System CenterStart: 23-96-2274Dcbfldas to rehabilitation physicianMemorial Hospitaltart: 87-66-6547Hzfrnwgj admissionMemorial Hospitaltart: 68-55-6378MeqyqohqabtzVndlqhssrMemorial Hospitaltart: 15-50-2633Evexonbw to gastroenterOhioHealth Southeastern Medical Centertart: 64-72-9822Zwpymac Bleeding in Gastrointestinal Tract, Via Natural or Artificial Opening EndoscopicControl Bleeding in Gastrointestinal Tract, Via Natural or Artificial Opening EndoscopicMemorial Hospitaltart: 08-31-2023 Excision of Esophagus, Via Natural or Artificial Opening Endoscopic, Diagnostic Excision of Esophagus, Via Natural or Artificial Opening Endoscopic, Diagnostic [facility]: 42-24-1406Iidramuv of Stomach, Pylorus, Via Natural or Artificial Opening Endoscopic, DiagnosticExcision of Stomach, Pylorus, Via Natural or Artificial Opening Endoscopic, DiagnosticMemorial Hospitaltart: 08-16-2023 End: 90-29-5942Ilztg metabolic 2000 panel - Serum or PlasmaBasic Metabolic Panel Lab Routine Cardiomyopathy, ischemic Expected: 08/16/2023 (Approximate), Expir es: 08/16/2024[facility] Work Phone: Comment on above:Expected: 08/16/2023 (Approximate), Expires: 08/16/2024Start: 08-16-2023 End: 00-17-9370Wqbplqwxifn peptide B [Mass/volume] in BloodB-Type Natriuretic Peptide Lab Routine Cardiomyopathy, ischemic Orthopnea Expected: 08/16/2023 (Approximate), Expires: 08/16/2024[facility] Service Area Work Phone: Comment on above:Expected: 08/16/2023 (Approximate), Expires: 08/16/2024Start: 07-16-2023 End: 20-00-8855XstwcessdMemorial Hospitaltart: 35-94-1621CFVGO-19 Vaccine (3 - Moderna series)COVID-19 Vaccine (3 - Moderna series)[facility] HospitalStart: 82-88-8091Euldslo Directive DiscussionAdvance Directive DiscussionCincinnati VA Medical Centertart: 06-23-2023 End: 81-08-1641Xzpabfz encounter mrhavhtbq05/13/2023 2:00 PM EST Office Visit [facility] [address] [facility] [address] [place] [address] Sammy Berman, CLINICAL LAB CLERK-SHIRT HEMMER [address] [facility] [address] [place] [address] [facility]Start: 75-31-6408Sflgf screening for protein Diabetes: Urine Protein ScreeningUniversity Health Lakewood Medical CenterStart: 26-72-5456XlfcwvswdTrinity Health System CenterStart: 86-88-9702Jsbumpyoqclenv of prophylactic treatment [facility] CenterStart: 02-17-8736Hndrxlkg admissionTrinity Health System CenterStart: 42-44-5948Kmjgivpz to clinical allergistTrinity Health System CenterStart: 40-60-6871PlfnmvlqnTrinity Health System CenterStart: 63-98-4506Hyrniyhl to rehabilitation physicianRegency Hospital Cleveland East Start: 38-31-6145Hkknx chemistryTrinity Health System CenterStart: 74-55-8024ButblnpynTrinity Health System CenterStart: 16-03-5649Bddxc chemistry [facility] CenterStart: 51-56-0607HtnbdglbcTrinity Health System CenterStart: 91-89-6805Zgszuvjp to Social ServicesMemorial Hospitaltart: 27-58-5821Hodvu chemistryTrinity Health System CenterStart: 04-30-2023 End: 18-81-6299DhjweotddTrinity Health System CenterStart: 10-19-2023Medicare Annual Wellness (AWV)Medicare Annual Wellness (AWV)[facility] HealthcareStart: 04-29-2023 Blood chemistryTrinity Health System CenterStart: 04-49-8245Afflk panel [facility] CenterStart: 84-96-0797BogjnopsnMemorial Hospitaltart: 51-60-5285GqemvpeqgTrinity Health System CenterStart: 04-28-2023 Hospital admissionTrinity Health System CenterStart: 00-53-7647KaehwglsdTrinity Health System CenterStart: 98-71-8937Qryfalvu admissionTrinity Health System CenterStart: 24-57-4599MbxmzcrursnkVisfqlibcRegency Hospital Cleveland East Start: 56-22-1539Bngfgecn to cardiologistTrinity Health System CenterStart: 04-28-2023 End: 75-37-9928ZmlwbcbznTrinity Health System CenterStart: 24-36-6220Uclqrwydgwn of Left Heart using Low Osmolar ContrastFluoroscopy of Left Heart using Low Osmolar ContrastMemorial Hospitaltart: 39-95-4747Vfsjrkhiqbv of Multiple Coronary Arteries using Low Osmolar ContrastFluoroscopy of Multiple Coronary Arteries using Low Osmolar ContrastRegency Hospital Cleveland East Start: 15-85-6220Pfixeqisi of Intramedullary Internal Fixation Device into Right Upper Femur, Percutaneous ApproachInsertion of Intramedullary Internal Fixation Device into Right Upper Femur, Percutaneous ApproachMemorial Hospitaltart: 88-21-5898Tgkyobwkjzb of Cardiac Sampling and Pressure, Left Heart, Percutaneous ApproachMeasurement of Cardiac Sampling and Pressure, Left Heart, Percutaneous ApproachMemorial Hospitaltart: 04-04-2022 Hemoglobin A1c measurementDiabetes: Hemoglobin G4AReqlsjfzewUC [facility]: 21-92-4545Qirnpcin vaccine (2 of 2)Shingles vaccine (2 of 2)[facility]: 79-37-7783IHDIZ-19 Vaccine (3 - Booster for Moderna series)COVID-19 Vaccine (3 - Booster for Moderna series)[facility] Start: 09-15-1562Bmqpazaasnlnt B Vaccine (3 of 4 - Increased Risk Bexsero 2-dose series)Meningococcal B Vaccine (3 of 4 - Increased Risk Bexsero 2-dose series) [facility]: 95-50-0173Ykdbchljdrmzp B Vaccine (3 of 4 - Increased Risk Bexsero 3-dose series)Meningococcal B Vaccine (3 of 4 - Increased Risk Bexsero 3-dose series)[facility] CenterStart: 09-15-2018 DTaP/Tdap/Td Vaccines (3 - Td or Tdap)DTaP/Tdap/Td Vaccines (3 - Td or Tdap)[facility] CenterStart: 09-01-2002Medicare Annual Wellness VisitMedicare Annual Wellness VisitCincinnati VA Medical Centertart: 34-16-9691Swrgq screening for protein Diabetes: Urine Protein ScreeningUC [facility]: 21-31-8280Guvpttq ScreeningAnxiety ScreeningCincinnati VA Medical Centertart: 1955 Depression ScreeningDepression ScreeningLancaster Municipal Hospitalrt: 1955 Hepatitis B surface antibody levelLDL CholesterolCincinnati VA Medical Centertart: 04-01-5611Gqrcftgzxg ScreenDepression ScreenBON [facility] Centerart: 74-29-1237Pqnepwsw foot examinationUC [facility]: 10-08-9435Iquzwtch screeningUC [facility]: 1945 Hepatitis B screeningUrine Albumin:Creatinine RatioBarberton Citizens Hospital: 76-57-8031Bureebhnnaeuy B Vaccine (1 of 4 - Increased Risk)Meningococcal B Vaccine (1 of 4 - Increased Risk)[facility]: 70-62-7439Muhlytylobndw Vaccine (1 - Risk 2-dose series)Meningococcal Vaccine (1 - Risk 2-dose series)[facility]: 24-31-6864IMK Vaccines (1 of 1 - Risk 1-dose series)HIB Vaccines (1 of 1 - Risk 1-dose series) [facility]: 10-56-0886Pgbezb Wellness Visit (AWV) Annual Wellness Visit (AWV)[facility]: 10-64-0029Xnuzi panel Lipid PanelUnMercy Health Defiance Hospital: 1937Medicare Annual Wellness VisitMedicare Annual Wellness Visit (AWV)[facility]: 45-06-3412Wrcocejzw for osteoporosisBone Density ScanUnKettering Health Washington TownshipAEROBIC CULTUREAEROBIC CULTURE Lab Routine 06/20/2024 10:18 AM [employer] Work Phone: ANAEROBIC CULTUREANAEROBIC CULTURE Lab Routine 06/20/2024 10:18 AM [facility] Metabolic Panel w/ Reflex to MGBasic Metabolic Panel w/ Reflex to MG Lab Routine Daily until discontinued starting 01/06/2022, 2 completedB[facility] [employer] Phone: comment on above:Daily until discontinued starting 01/06/2022, 2 completedCBC W Auto Differential panel - BloodCBC with Auto Differential Lab Routine Daily until discontinued starting 01/03/2022, 5 completedBON [facility] [employer] Phone: comment on above:Daily until discontinued starting 01/03/2022, 5 completedComprehensive metabolic 2000 panel - Serum or Plasma [facility] Hospital [facility] EastGlucose [Mass/volume] in Serum or PlasmaPOCT Glucose Point of Care Testing STAT As Needed until discontinued starting 01/02/2022[facility] [employer] Phone: comment on above:As Needed until discontinued starting 01/02/2022Glucose [Mass/volume] in Serum or PlasmaPOCT glucose Point of Care Testing Routine Now Then Every 4hr until discontinued starting 01/03/2022 [employer] Phone: comment on above:Now Then Every 4hr until discontinued starting 01/03/2022Glucose [Mass/volume] in Serum or PlasmaGLUCOSE, BLOOD (POC) Lab Routine 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, with long-term current use of insulin (HCC) Ordered: 4CDoctors Hospital Work Phone: Comment on above:Ordered: 07/06/2024Glucose measurement estimated from glycated hemoglobinRegency Hospital Cleveland East Helicobacter pylori Ag [Presence] in Stool by ImmunoassayRegency Hospital Cleveland EastOxygen therapy [Minimum Data Set]Initiate Oxygen Therapy Protocol Respiratory Care Routine As Needed until discontinued starting 01/02/2022 [employer] Phone: comment on above:As Needed until discontinued starting 01/02/2022atient [facility] Work Phone: Patient referralTrinity Health System Ctr Work Phone: Phosphate [Mass/volume] in Serum or PlasmaPhosphorus Lab Routine Daily until discontinued starting 01/06/2022, 2 completedBON [employer] Work Phone: comebht on above:Daily until discontinued starting 01/06/2022, 2 completedSpirometry panelIncentive spirometry Respiratory Care Routine Every 2hr while awake until discontinued starting 01/03/2022 [employer] Phone: comfwig on above:Every 2hr while awake until discontinued starting 01/03/2022US Heart TransthoracicRegency Hospital Cleveland EastUS Heart TransthoracicRegency Hospital Cleveland EastXR Cervical spine 3 ViewsProHealth Waukes[facility] Immunizations Immunization DateImmunizationNotesCare FdpudjlwUktudqbc84-05-3255hrhxbbvci, high dose seasonal, preservative-freeGeneric ProviderUniversity Health Lakewood Medical CenterArrjrccnen49-39-4934 Seasonal trivalent influenza vaccine, adjuvanted, preservative freeYuerong Cally RESCUE WORKER Work Phone: [facility] Medical CenterFvawbdxlvn03-96-1752vnngrogpl virus vaccine, unspecified formulationMarie Ileana DO Work Phone: [facility] Medical CenterNztdbhlguo11-38-6744Cjatonjvi, Seasonal, Quadrivalent, AdjuvantedYuerong Cally RESCUE WORKER Work Phone: [facility] Medical CenterLjdbissgni49-16-3850QWLHL-04 (PFIZER) 12Y and olderDO Marie Tejeda Work Phone: [facility]11-07-2023Moderna SARS-CoV-2 VaccinationYuerong Cally RESCUE WORKER Work Phone: [facility] Medical CenterPzwcnvmxkx34-21-7223PFZ, recombinant, protein subunit RSVpreF, adjuvant reconstitu, 120mcg/0.5mL, PF (Arexvy)Yuerong Cally RESCUE WORKER Work Phone: [facility] Medical CenterRtgltmbvet96-59-8304vffnqt vaccine recombinant Yuerong Cally RESCUE WORKER Work Phone: [facility] Medical CenterUdbinydlob33-02-2411FIUOG-78 mRNA Bivalent Booster (Pfizer)DO Marie Tejeda Work Phone: [facility]11-15-2022Moderna Bivalent Booster VaccinationYuerong Cally RESCUE WORKER Work Phone: [facility] Medical CenterIflpgxlyoi39-43-4378xksocawli, high dose seasonal, preservative-freeYuerong Cally RESCUE WORKER Work Phone: [facility] CenterXxearmqdws82-28-6697gvudxz vaccine, liveYuerong Cally RESCUE WORKER Work Phone: [facility] CenterIyntotmgtg37-10-1249vrdyba vaccine recombinant Yuerong Cally RESCUE WORKER Work Phone: [facility] CenterTjarkxsqtz18-86-4188pxqkmlkqe, high dose seasonal, preservative-freeYuerong Cally RESCUE WORKER Work Phone: [facility] CenterPnocfxffix60-26-3980Inbtcni SARS-CoV-2 VaccinationYuerong Cally RESCUE WORKER Work Phone: [facility] CenterGowddkvhit29-05-9160Kkvwqdw SARS-CoV-2 VaccinationYuerong Cally RESCUE WORKER Work Phone: [facility] CenterByobdjnaaz58-09-3789Fvglczzn trivalent influenza vaccine, adjuvanted, preservative freeYuerong Cally RESCUE WORKER Work Phone: [facility] CenterXdexeohooc91-10-9705ucztcmegubvv conjugate vaccine, 13 valentYuerong Cally RESCUE WORKER Work Phone: [facility] CenterLgpbcxhuxt18-42-9180bllqwugnbgfsu B vaccine, recombinant, OMV, adjuvantedRobert Vaspaulding county hospitalk DO Work Phone: noGolden Valley Memorial HospitalNksaowolgh05-91-7005jmisabkmphrhy polysaccharide (groups A, C, Y and W-135) diphtheria toxoid conjugate vaccine (MCV4P)[facility] DO Work Phone: [facility] CenterIwtngpibgw68-62-2445fnvvdxokmzuf polysaccharide vaccine, 23 valentRobert Vaspaulding county hospitalk DO Work Phone: [facility] CenterNaxfktsfvk86-34-2034Uhvsxzmo trivalent influenza vaccine, adjuvanted, preservative freeYuerong Cally RESCUE WORKER Work Phone: [facility] CenterZhimhqmlhf85-35-9049uyldulmlejn influenzae type b vaccine, PRP-OMP conjugateRobert Vaspaulding county hospitalk DO Work Phone: [facility] CenterQowdgmtpwx15-52-8875saravlovoxfcu B vaccine, recombinant, OMV, adjuvantedRobert Vaschak DO Work Phone: [facility] CenterUdfnwusfpg13-85-1957mnpakxmkcbsd conjugate vaccine, 13 valentRobert Vaschak DO Work Phone: [facility] CenterDteeknagwy13-19-5200Bihyjsnw trivalent influenza vaccine, adjuvanted, preservative freeYuerong Cally RESCUE WORKER Work Phone: [place] [address]Ifhmvrqqyc81-92-3177ifyrmoi and diphtheria toxoids, adsorbed, preservative free, for adult use (5 Lf of tetanus toxoid and 2 Lf of diphtheria toxoid)Anatoly Anne RESCUE WORKER Work Phone: [facility] CenterUxmsrxjjfc78-01-8402bdghvvaiy, high dose seasonal, preservative-freeAnatoly Cally RESCUE WORKER Work Phone: [facility] CenterGowsrcqhaq45-56-3807qglcoovvstvz polysaccharide vaccine, 23 valentYleonarda Cally RESCUE WORKER Work Phone: [facility] Medical CenterEvatoorvgl72-77-5760mxsigmz toxoid, reduced diphtheria toxoid, and acellular pertussis vaccine, adsorbedAnatoly [facility] RESCUE WORKER Work Phone: [facility] Payers DatePayer CategoryMnyerAllegheny General Hospital [id number]-vhs [id number] Health Insurance1.2.840.155540.1.13.693.2.7.9.461823.854697. Medicare1.2.840.034775.1.13.647.2.7.3.2852[id number] 1.2.840.595860.1.13.239.2.7.3.7350[id number] 1.2.840.906046.1.13.239.2.7.3.51697[id number] 2.16.840.1.068467.3.57[id number] 2.16.840.1.190461.3.579.[id number] 2.16.840.1.566142.3.57[id number] 2.16.840.1.755802.3.579.2.24240-44-1233Xuvnvoh892392505 2.16.840.1.819950.3.57[id number] 2.16.840.1.543099.3.57[id number] 2.16.840.1.909932.3.579.2.570494-02-8831Qeoyrsm04306154 2.16.840.1.676821.3.579.2.806888-77-9700Bclkuql55452434 2.16.840.1.448632.3.579.2.37228-85-7776Ovsphye48823800 2.16.840.1.846073.3.579.2.44952-07-2162Zobuiqh97946357 2.16.840.1.682792.3.579.2.68322-62-4470Qwazijc52023639 2.16.840.1.022139.3.579.2.060345-53-2995Nxgjklx23789888 2.16.840.1.512591.3.579.2.701613-27-3496Wqfofeq37199911 2.16.840.1.418996.3.579.2.552689-50-6347Mqihycy14682714 2.16.840.1.946571.3.579.2.388927-32-3925Ubvffni07728459 2.16.840.1.212538.3.579.2.493772-14-6216Hkkdfft18186592 2.16.840.1.460812.3.579.2.843641-38-7506Athslck6996476 2.840.1.566002.3.579.2.582715-74-5169Dgxwfuw5649227 2.0.1.687267.3.579.2.098121-48-5956Gkqzons2629945 2.840.1.423187.3.579.2.929629-09-7960Hkdaxnc7029200 2.840.1.597899.3.579.2.807725-00-2158Ktzzzyg7212315 2.0.1.488871.3.579.2.753840-29-4180Lyayiug3443095 2.0.1.620746.3.579.2.873590-35-1880Yuvftjn71190955 2.0.1.992321.3.579.2.98986-02-7417Axbyfyx84944356 2.0.1.235330.3.579.2.37249-87-7269Xwskbba75639363 2.0.1.390608.3.579.2.59666-00-6111Udoadcn28093247 2.0.1.701781.3.579.2.15470-28-5418Lgibtiw10485614 2.0.1.383359.3.579.2.91649-81-2138Rmpacoa93057384 2.0.1.129149.3.579.2.852UimzekaRN5665710Nkwkjxx96008700 2.840.1.633692.3.579.2.102Kocztwj33593663 2.840.1.799628.3.579.2.531 Mqilkoq67985034 2.840.1.635364.3.579.2.271Kdoryzw72758263 2.16.840.1.914421.3.579.2.242Cbpvxio91320500 2.16.840.1.766091.3.579.2.531 Eaeyrcn37364070 2.16.840.1.646097.3.579.2.525Zrorfym51251919 2.16.840.1.866817.3.579.2.980Azsrmbf12233351 2.16.840.1.743567.3.579.2.531 Xogukph94261570 2.16.840.1.772757.3.579.2.678Kotgbjt20489918 2.16.840.1.9[id number] 2.16.840.1.096100.3.579.2.531 Social History DateTypeDetailFacilityStart: 01-04-2022 End: 76-62-4474Nwegfjk smoking status NHISEx-smokerStep [employer] Graphics Start: 07-12-1947 End: 99-44-6745Smbwopl of tobacco useCigarette SmokerBANNER RE[facility] [employer] Phone: start: 01-04-2022 End: 89-85-6563Ofaymyq use and exposureSmokeless tobacco non-userBANNER REHABILITATION HOSPITAL [facility]ST [employer] Phone: start: 70-94-7037Zmbydva intakeEx-drinker (finding)[facility] [employer] Phone: start: 72-56-1191Rrw Assigned At BirthNot on fileBANNER REHABILITATION HOSPITAL [facility] [employer] Phone: start: 12-24-2021 End: 13-74-9155Zvusprtk to SARS-CoV-2 (event)Not sureBANNER REHABILITATION HOSPITAL [facility]ST [employer] Start: 04-28-2023 End: 96-05-8214Sjurqyd smoking status NHISCurrent some day smokerMemorial Hospitaltart: 82-50-3627Hzn Assigned At [facility]tering Healthtart: 05-25-2023 End: 28-89-3794Ghn Assigned At [facility] tic Other Start: 05-25-2023 End: 00-02-2491Tzuggaq intakeCurrent drinker of alcohol (finding)[facility] Work Phone: Start: 05-25-2023 End: 31-04-0430Rjajava intakeUnKettering Health Washington Township Work Phone: Start: 07-12-1947 End: 82-06-9112Aoxopjj smoking status NHISSmoker (finding)[facility] EastHow often to you have a drink containing alcohol?2-4 times a month [facility] HealthcareHow many standard drinks containing alcohol do you have on a typical day?1 or 2NOMS HealthcareHow often do you have 6 or more drinks on 1 occasion?NeverNOIA HealthcareStart: 86-84-6188Fpgeoez CommentHas a history of cessation from smokin02/09/2018NO[facility] HealthcareStart: 11-22-2010 End: 17-50-3562SszIwun (finding)[facility] Hospitaltart: 03-30-2018 End: 74-42-1395Bmdnybgn Score (1-100), lower number is lower tyjv40Yftxreqmx ClinicStart: 23-05-5683Etexwdt Commentsocial useCincinnati VA Medical Centertart: 07-12-1947 End: 51-98-3216Uosofje smoking status NHISSmokes tobacco dailyNOIA Healthcare Tobacco smoking statusExecutive Urology of Madison [facility] Start: 90-76-3313Awsjafz Commentcaffeine-1 cup per day [facility] Medical Equipment Procedure CodeEquipment CodeEquipment Original TextEquipment IdentifierDates ORIF, hipOrthopaedic bone screw, non-bioabsorbable, non-sterile ()[id number] FDAStart: 34-96-0903ZQGK, hipFemur nail, sterile ()[id number] FDAStart: 13-65-1388SBXG, hipSpiral blade()[id number] FDAStart: 35-73-9525Xnvmlgtxh, pacemakerEndocardial defibrillation lead ()[id number] FDAStart: 37-60-7432Cyzccspdq, pacemakerDual-chamber implantable defibrillator ()[id number] FDAStart: 16-14-5210Mkbmvsvfy, pacemakerEndocardial/interventricular septal pacing lead ()[id number] FDAStart: 77-15-0873NH STENT MARK FRONTIER 3.5 X 18FDAStart: 49-41-5966OU STENT MARK FRONTIER 3.5 X 18FDAStart: 55-72-3355XtaulraDbkms: 98-52-4097Ekh Needle, Diabetic (Bd Ultra-Fine Marichuy Pen Needle) 32 gauge x 5/32 needleStart: 19-15-9255NA STENT MARK FRONTIER 3.5 X 18 FDAStart: 39-42-2623EnqjtpoSnyxr: 99-01-0814Bsi Needle, Diabetic (Bd Ultra-Fine Marichuy Pen Needle) 32 gauge x 5/32 needleStart: 00-55-8836KK STENT MARK FRONTIER 3.5 X 18FDAStart: 09-00-9324EfvhjyvLdfog: 62-97-0434Haa Needle, Diabetic (Bd Ultra-Fine Marichuy Pen Needle) 32 gauge x 5/32 needleStart: 25-69-9317HL STENT MARK FRONTIER 3.5 X 18FDAStart: 51-23-8975VsjoazdVyolg: 52-60-4539Kni Needle, Diabetic (Bd Ultra-Fine Marichuy Pen Needle) 32 gauge x 5/32 needleStart: 61-17-0878LK STENT MARK FRONTIER 3.5 X 18FDAStart: 77-52-0334OftuatyYdvpk: 78-04-5883Vea Needle, Diabetic (Bd Ultra-Fine Marichuy Pen Needle) 32 gauge x 5/32 needleStart: 81-35-0848QK STENT MARK FRONTIER 3.5 X 18FDAStart: 07-16-2023 LancetsStart: 31-61-0283Ces Needle, Diabetic (Bd Ultra-Fine Marichuy Pen Needle) 32 gauge x 5/32 needleStart: 05-06-5372YW STENT MARK FRONTIER 3.5 X 18FDAStart: 64-38-6528UkmbfyeQbzad: 30-87-4770Hyj Needle, Diabetic (Bd Ultra-Fine Marichuy Pen Needle) 32 gauge x 5/32 needleStart: 95-80-6120DC STENT MARK FRONTIER 3.5 X 18 FDAStart: 89-99-1035YhxncbyVacca: 54-12-8053Bpv Needle, Diabetic (Bd Ultra-Fine Marichuy Pen Needle) 32 gauge x 5/32 needleStart: 47-75-8816MT STENT MARK FRONTIER 3.5 X 18FDAStart: 96-68-3804QxpitwkNqqja: 57-23-8784Mnm Needle, Diabetic (Bd Ultra-Fine Marichuy Pen Needle) 32 gauge x 5/32 needleStart: 29-09-9560CW STENT MARK FRONTIER 3.5 X 18FDAStart: 60-88-4284AofocnfZdjgw: 61-12-2699Sjr Needle, Diabetic (Bd Ultra-Fine Marichuy Pen Needle) 32 gauge x 5/32 needleStart: 55-95-6427NJ STENT MARK FRONTIER 3.5 X 18FDAStart: 72-58-3472KcwqjakFvnyg: 61-48-6139Hpm Needle, Diabetic (Bd Ultra-Fine Marichuy Pen Needle) 32 gauge x 5/32 needleStart: 36-13-8464EB STENT MARK FRONTIER 3.5 X 18FDAStart: 07-16-2023 LancetsStart: 69-88-4619Uwm Needle, Diabetic (Bd Ultra-Fine Marichuy Pen Needle) 32 gauge x 5/32 needleStart: 62-55-3227VZ STENT MARK FRONTIER 3.5 X 18FDAStart: 84-12-4214UaztiyaRhepu: 60-93-8555Pbp Needle, Diabetic (Bd Ultra-Fine Marichuy Pen Needle) 32 gauge x 5/32 needleStart: 95-51-2973LG STENT MARK FRONTIER 3.5 X 18 FDAStart: 33-70-3241TrbujjoWavue: 82-05-3780Ewf Needle, Diabetic (Bd Ultra-Fine Marichuy Pen Needle) 32 gauge x 5/32 needleStart: 26-66-6721CX STENT MARK FRONTIER 3.5 X 18FDAStart: 64-51-3429EbpihyiYjxbr: 06-48-8416Qry Needle, Diabetic (Bd Ultra-Fine Marichuy Pen Needle) 32 gauge x 5/32 needleStart: 59-95-1796FE STENT MARK FRONTIER 3.5 X 18FDAStart: 48-10-0201RbpenpcIoxmx: 19-68-4739Kbt Needle, Diabetic (Bd Ultra-Fine Marichuy Pen Needle) 32 gauge x 5/32 needleStart: 43-34-670661289993Chmzr: 42-64-8420XT STENT MARK FRONTIER 3.5 X 18FDAStart: 61-16-7302IgdubbiWdtqf: 39-67-7107Wpo Needle, Diabetic (Bd Ultra-Fine Marichuy Pen Needle) 32 gauge x 5/32 needleStart: 75-92-3318IB STENT MARK FRONTIER 3.5 X 18 FDAStart: 09-35-4478FpyxmyyWsrru: 12-57-4852Ojd Needle, Diabetic (Bd Ultra-Fine Marichuy Pen Needle) 32 gauge x 5/32 needleStart: 65-94-2822DH STENT MARK FRONTIER 3.5 X 18FDAStart: 25-21-8448JcibzfpMybyp: 31-61-1839Jlf Needle, Diabetic (Bd Ultra-Fine Marichuy Pen Needle) 32 gauge x 5/32 needleStart: 81-99-7164HT STENT MARK FRONTIER 3.5 X 18FDAStart: 82-45-8694VfjigghMslcp: 39-90-1501Bwc Needle, Diabetic (Bd Ultra-Fine Marichuy Pen Needle) 32 gauge x 5/32 needleStart: 34-34-4675XR STENT MARK FRONTIER 3.5 X 18FDAStart: 77-50-3797KnrsgnaRammu: 97-24-1663Vva Needle, Diabetic (Bd Ultra-Fine Marichuy Pen Needle) 32 gauge x 5/32 needleStart: 23-55-1999XB STENT MARK FRONTIER 3.5 X 18FDAStart: 53-09-3980Jqrto Sugar Diagnostic stripStart: 04-29-8624Ujbcksh miscStart: 04-86-4706Kuk Needle, Diabetic (Bd Ultra-Fine Marichuy Pen Needle) 32 gauge x 5/32 needleStart: 04-05-2486DV STENT MARK FRONTIER 3.5 X 18FDAStart: 86-53-9860Pzbjl Sugar Diagnostic stripStart: 96-77-7638Tzdqeeh miscStart: 47-51-0960Efi Needle, Diabetic (Bd Ultra-Fine Marichuy Pen Needle) 32 gauge x 5/32 needleStart: 44-85-7131AR STENT MARK FRONTIER 3.5 X 18FDAStart: 23-52-1090Xgxeg Sugar Diagnostic stripStart: 06-61-6732Gqrcxhw miscStart: 27-09-3045Gcr Needle, Diabetic (Bd Ultra-Fine Marichuy Pen Needle) 32 gauge x 5/32 needleStart: 57-51-1303GH STENT MARK FRONTIER 3.5 X 18FDAStart: 50-26-1203Lcqvk Sugar Diagnostic stripStart: 19-86-2860Orqukxm miscStart: 30-37-5934Mvp Needle, Diabetic (Bd Ultra-Fine Marichuy Pen Needle) 32 gauge x 5/32 needleStart: 54-41-2208GD STENT MARK FRONTIER 3.5 X 18FDAStart: 36-47-9867Qzuax Sugar Diagnostic stripStart: 43-15-0201Zooymlj miscStart: 45-34-5192Pja Needle, Diabetic (Bd Ultra-Fine Marichuy Pen Needle) 32 gauge x 5/32 needleStart: 41-92-3274Fol with insulin once daily in case of pump [id number]: 25-78-5858VX STENT MARK FRONTIER 3.5 X 18FDAStart: 96-27-5757Etnhf Sugar Diagnostic stripStart: 43-03-9716Gupamsk miscStart: 78-98-6382Bze Needle, Diabetic (Bd Ultra-Fine Marichuy Pen Needle) 32 gauge x 5/32 needleStart: 88-72-5972ZU STENT MARK FRONTIER 3.5 X 18FDAStart: 47-96-5887Jozap Sugar Diagnostic stripStart: 13-86-7332Kxdtbgo miscStart: 50-70-0642Sfm Needle, Diabetic (Bd Ultra-Fine Marichuy Pen Needle) 32 gauge x 5/32 needleStart: 93-34-9565CD STENT MARK FRONTIER 3.5 X 18FDAStart: 74-34-7892Udmob Sugar Diagnostic stripStart: 70-56-5195Mrvnnac miscStart: 19-13-1566Kxk Needle, Diabetic (Bd Ultra-Fine Marichuy Pen Needle) 32 gauge x 5/32 needleStart: 42-45-3617PK STENT MARK FRONTIER 3.5 X 18FDAStart: 23-63-3019Sgaiu Sugar Diagnostic stripStart: 14-81-6751Bgtblvl miscStart: 38-20-5622Yrw Needle, Diabetic (Bd Ultra-Fine Marichuy Pen Needle) 32 gauge x 5/32 needleStart: 20-70-5440IN STENT MARK FRONTIER 3.5 X 18FDAStart: 44-87-2723Ygfxq Sugar Diagnostic stripStart: 81-97-6141Ztttiyy miscStart: 66-81-3046Iwv Needle, Diabetic (Bd Ultra-Fine Marichuy Pen Needle) 32 gauge x 5/32 needleStart: 09-05-2023 Goals DatePatient GoalDesired Activity/State Functional Status HoyvHbbizcfkkrUmqkdjSunscvvp49-15-0956Xvphpoetei statusPatient at Baseline [facility] Work Phone: [phone] statusPatient at Baseline [facility] Work Phone: [phone] statusPatient is Progressing [facility]ard [facility] Work Phone: [phone] statusPatient at Baseline [facility] Work Phone: [phone]w statusPatient at Baseline [facility] Work Phone: [phone] Health Questionnaire 2 item (PHQ-2) [Reported][facility] CenterWejpzkfqkl85-67-0925Qthormdeuq statusPatient at [facility] Work Phone: [phone] statusPatient is Progressing [facility] Work Phone: [phone]ul statusPatient at Baseline [facility] Work Phone: [phone] Health Questionnaire 2 item (PHQ-2) [Reported][facility] CenterZyxdsfsrvc03-80-3698Vonbrzgjjd statusPatient is Progressing [facility] Work Phone: 1([phone]nb statusPatient is Progressing [facility] Work Phone: [phone] statusPatient Not at Baseline [facility] Work Phone: Mental Status EkpwZnavlqwdqgKabtnxZidanzai67-83-5919Kzrstgwgg functionCognitive Status [facility] Work Phone: 1([phone] functionCognitive Status [facility] Work Phone: [phone] functionCognitive Status [facility] Work Phone: 1([phone] functionCognitive Status [facility] Work Phone: 1([phone] functionCognitive Status [facility] Work Phone: 1([phone] functionCognitive Status [facility] Work Phone: 1([phone] functionCognitive Status [facility] Work Phone: [phone] functionCognitive Status [facility] Work Phone: [phone] functionCognitive Status Patient is Progressing Toward [facility] Work Phone: [phone] functionCognitive Status Patient is Progressing Toward [facility] Work Phone: [phone] functionCognitive Status Patient at [facility] Work Phone: Clinical Notes 01-07-2022 to 05-17-2025 Note Date & LkinKsjjEutdhvfe81-88-7713 NoteED Patient Education Note Obstetrics and Gynecology [...] this condition includes: ??? Antibiotic medicine. ??? Kahz-eal-ipwufkx medicines to treat discomfort. ??? Drinking enough [...] these instructions at home: Medicines ??? Take ftzg-xsk-lfbhxda and prescription medicines only as told by [...] care provider. Make marcus (more content not included)...[facility]10-23-2025 NoteHNO ID: [id number] Author: AYANA ZAVALA APRN.SHIRT HEMMER Service: ? Author Type: Nurse Practitioner Type: Progress Notes Filed: 05/03/2025 12:25 Note Text: Endocrinology Follow Up History of Present Illness Manool Roche is a 89 year old male presents today for follow up of DM Type 1. Here with . At [facility] 03/2025, patient was transitioned from Omnipod to [...] of total pancreatectomy in September [address] [facility] in [place]. Per patient, this was done due to [...] Subclass aspirin, (more content not included)...[facility]10-23-2025 Note HNO ID: [id number] Author: MIGUEL A GOODWIN MA Service: ? Author Type: Bradder Type: Procedures Filed: 05/03/2025 12:25 Note Text:[facility]10-10-2025 Hospital Discharge instructions Follow Up Care 04/20/2025 10:32:21 With:JULIO OGLESBY, Tristan Interiano, URL Address: [address] [place], [place] [id number] When: Unknown Comments:Pending Cysto/bladder function testing [facility] Manuel 09-29-2025 NoteHNO ID: [id number] Author: AYANA ZAVALA APRN.SHIRT HEMMER Service: ? Author Type: Nurse Practitioner Type: Progress Notes Filed: 04/10/2025 08:17 Note Text: Endocrinology Follow Up History of Present Illness Manolo Roche is a 89 year old male presents today for follow up of DM Type 1. Here with . At [facility] 10/2024, basal rate was reduced overnight. He [...] or vomiting. 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 Labwork from this AM is pending. recalls he is not bolusing consistently and will ignore his Omnipod alarms at times. Patient recalls being consistent with his Novolog and Lantus injections when he was on these. 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 in [place]. Per patient, this was done due to [...] OTHER Medication Dosage Pharm Subclass Blood-Glucose Sensor (Realius G7 SENSOR) delfin Change every 10 days. [...] needed. Agents to treat Hypoglycemia (Hyperglycemics) Insulin Arley, Disposable, (BD ULTRA-FINE MARICHUY PEN NEEDLE) 32 gauge x 5/32 Use with insulin once daily in case of pump failure Medical Supplies and DME - Insulin Arley-Syringes and Admin Supplies insulin pump cart,auto,B (more content not included)...[facility]09-16-2025 Evaluation note* Diagnosis Onset Date Resolution Status Admit Date Ischemic cardiomyopathy acuteSeptember 2024 9:54amType 1 diabetes mellitusacuteSeptember 2024 9:54amAcute GI bleedingresolvedSept2024 9:54amCoronary artery disease involving kasigluk coronary artery of kasigluk heart wiinactiveSept2024 9:54amHypertensioninactiveSeptember 2024 9:54amS/P PTCA (percutaneous transluminal coronary angioplasty)inactiveSept2024 9:54amH pylori ulceracuteOctober 2024 10:11amIron deficiencyacuteOctober 2024 10:11amIschemic cardiomyopathyacuteOctober 2024 10:11amType 1 diabetes mellitusacuteOctober 2024 10:11amAcute GI bleedingresolvedOctober 2024 10:11amNon-ST elevation myocardial infarction (NSTEMI), subendocardial infarction,resolvedOctober 2024 10:11amCoronary artery disease involving kasigluk coronary artery of kasigluk heart wiinactiveOctober 2024 10:11amHypertensioninactiveOctober 2024 10:11amS/P PTCA (percutaneous transluminal coronary angioplasty)inactiveOctober 2024 10:11am [facility] Work Phone: [phone] Telephone encounter Note* Telephone Encounter - Ayana Zavala APRN.CNP - 02/06/2025 11:55 AM EDT Please fax labs to [facility]. See other encounter- Medicare is requiring documentation of his insulin level in order to cover his insulin under Part B. Please notify patient BG needs to be under 225 mg/dL in the AM in order for insulin level to be accurate. [facility]07-29-2025 Miscellaneous Notes* Telephone Encounter - Ayana Zavala APRN.CNP - 02/06/2025 11:55 AM EDT Please fax labs to [facility]. See other encounter- Medicare is requiring documentation of his insulin level in order to cover his insulin under Part B. Please notify patient BG needs to be under 225 mg/dL in the AM in order for insulin level to be accurate. documented in this encounterOhiohealth07-28-2025 Telephone encounter Note * Telephone Encounter - [...] for this to be an accurate reading. [facility]07-28-2025 Miscellaneous Notes* Telephone Encounter - Ayana Zavala [...] be an accurate reading. 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 [facility] [place] VASECTOMY 1989 SOCIAL HISTORY: Social [...] Depression - At risk (01/21/2024) Received from [facility] PHQ-2 Total Score: 3 FAMILY HISTORY: Family [...] (PRILOSEC) 20 mg, Daily before breakfast pancrelipase, Whj-Chih-Savp, (Creon) 23159-64184 units capsule TAKE 2 CAPSULES BY MOUTH [...] and monitoring are necessary. documented in this encounterUniversity Health [facility] Medical CenterZtejthmddb89-90-9540 Instructions* Patient Instructions* Selma Wilcox LPN - 01/02/2025 11:30 AM EDT ?? ATTENTION: [employer] Policy Update - Effective 12/13/24 Beginning today, our nursing team will review [employer] messages twice daily and help determine the [...] a brief office visit, if handled via [employer]. We want you to feel informed and confident when using [employer], so here are a few examples to [...] us in your health! documented in this encounterUniversity Health Lakewood Medical CenterGeacbhimmy92-42-5267 Telephone encounter Note* Telephone Encounter - Erick Peguero LPN - 12/27/2024 5:54 PM EDT Spoke to patient's . The sensors are ready for berry picker at pharmacy. She will let us know whereshe would like the refills sent when they are ready, nothing further for now. [facility]06-18-2025 Miscellaneous Notes* Telephone Encounter - Erick Peguero LPN - 12/27/2024 5:54 PM EDT Spoke to patient's . The sensors are ready for berry picker at pharmacy. She will let us know whereshe would like the refills sent when they are ready, nothing further for now. * Telephone Encounter - Ayana Zavala APRN.CNP - 12/27/2024 9:53 AM EDT Please call [facility] to inquire what is needed from the office. documented in this encounterOhiohealth06-18-2025 Telephone encounter Note * Telephone Encounter - Ayana Zavala APRN.CNP - 12/27/2024 9:53 AM EDT Please call [facility] to inquire what is needed from the office. [facility]06-16-2025 Telephone encounter Note* Telephone Encounter - Ayana Zavala APRN.CNP - 12/25/2024 8:03 AM EDT Rx sent however patient obtains typically from [facility], are they still having issues obtaining from there? [facility]06-16-2025 Miscellaneous Notes* Telephone Encounter - Ayana Zavala APRN.CNP - 12/25/2024 8:03 AM EDT Rx sent however patient obtains typically from [facility], are they still having issues obtaining from there? * Telephone Encounter - Sharonda Felipe - 12/19/2024 12:04 PM EDT Pt needs refill on sensors. Do not see on current med list. [facility]. Insurance is not going to pay for this until 01/03. Spouse is requesting to speak to a nurse about getting an alternative until then. Please review and advise. Patient has been identified by name and birthdate. Duration of symptoms: N/A Person calling: self Call patient at: on cell [phone] (cell) Was an appointment scheduled: No Closing statement: Results or non-symptom based questions: Thank you for calling [facility], your call will be returned within the next business day. Sharonda Kay documented in this encounterOhiohealth06-10-2025 Telephone encounter Note * Telephone Encounter - Sharonda Felipe - 12/19/2024 12:04 PM EDT Pt needs refill on sensors. Do not see on current med list. [facility] in [facility]. Insurance is not going to pay for this until 01/03. Spouse is requesting to speak to a nurse about getting an alternative until then. Please review and advise. Patient has been identified by name and birthdate. Duration of symptoms: N/A Person calling: self Call patient at: on cell [phone] (cell) Was an appointment scheduled: No Closing statement: Results or non-symptom based questions: Thank you for calling [facility], your call will be returned within the next business day. Sharonda Kay [facility]06-03-2025 Telephone encounter Note* Telephone Encounter - Steven [...] Steven Patrick December 12, 2024 3:37 PM [facility]06-03-2025 Miscellaneous Notes* Telephone Encounter - Steven Patrick [...] 12, 2024 3:37 PM documented in this encounterOhiohealth04-23-2025 Telephone encounter Note * Telephone Encounter - Ayana Zavala APRN.CNP - 11/01/2024 11:59 AM EDT Please call pharmacy to inquire which insulin is covered or what they need prescription to say- do they need it sent as brand Novolog? [facility]04-23-2025 Miscellaneous Notes* Telephone Encounter - Ayana Zavala APRN.CNP - 11/01/2024 11:59 AM EDT Please call pharmacy to inquire which insulin is covered or what they need prescription to say- do they need it sent as brand Novolog? 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 Author Type: Nurse Practitioner Type: Progress Notes Filed: 10/26/2024 13:11 Note Text: Endocrinology Follow Up History of Present Illness Manolo Roche is a 89 year old male presents today for follow up of DM Type 1. Here with . At [facility] 09/25/2024, basal rate settings were changed, sensor [...] of total pancreatectomy in [address] [facility] in [place]. Per patient, this was done due to [...] needed. Agents to treat Hypoglycemia (Hyperglycemics) Insulin Arley, Disposable, (BD ULTRA-FINE MARICHUY PEN NEEDLE) 32 gauge x 5/32 Use with insulin once daily in case of pump failure Medical Supplies and DME - Insulin Arley-Syringes and Admin Supp (more content not included)...[facility]04-17-2025 History of Present illness Narrative* Ayana Zavala, AMADA.SHIRT HEMMER - 10/26/2024 12:05 PM EDT Endocrinology Follow Up History of Present Illness Manolo Roche is a 89 year old male presents today for follow up of DM Type 1. Here with . At [facility] 09/25/2024, basal rate settings were changed, sensor [...] of total pancreatectomy in [address] [facility] in [place]. Per patient, this was done due to [...] needed. Agents to treat Hypoglycemia (Hyperglycemics) Insulin Arley, Disposable, (BD ULTRA-FINE MARICHUY PEN NEEDLE) 32 gauge x 5/32 Use with insulin oncedaily in case of pump failure Medical Supplies and DME - Insulin Arley-Syringes and Admin Supplies insulin pump cart,auto,BT,G6/7 (OMNIPOD 5 G6-G7 PODS, GEN 5,) crtg Change every 72 hours. Medical Supply, FDB Superset Lactobac no.41/Bifidobact no.7 (PROBIOTIC-10 ORAL) Take by mouth once daily. Intestinal Chayo Modifiers mffgct-jcejboma-sadbisk (CREON) 24,000-76,000 -120,000 unit cpDR Take 2 capsules by mouth three times daily with meals. and 1 with snacks (8/day) Digestive Enzyme Mixtures lutein-zeaxanthin 25-5 mg cap Take by mouth once daily. Alternative Therapy - Antioxidant Omeprazole Magnesium 20 mg tablet Take 20 mg by mouth. Gastric Acid Secretion Hemmer Automatic - Proton PumpInhibitors (PPIs) PARoxetine (PAXIL) 40 mg tablet Take 40 mg by mouth every morning. Antidepressant - Selective Serotonin Reuptake Inhibitors (SSRIs) tamsulosin (FLOMAX) 0.4 mg Take 0.4 mg by mouth. 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 operator, but from our standpoint he would [...] Recommend discontinuing Farxiga- discussed with PCP / glue mill operator BACKUP INSULIN PLAN: Only use this [...] time of the patient encounter Ayana Zavala APRN.SHIRT HEMMER (Signed electronically to expedite mailing) documented in this encounterOhiohealth04-04-2025 Evaluation note* Diagnosis Onset Date Resolution Status Admit Date Ischemic cardiomyopathy acuteApril 2024 9:10amType 1 diabetes mellitusacuteApril 2024 9:10am Acute GI bleedingresolvedApril 2024 9:10amCoronary artery disease involving kasigluk coronary artery of kasigl[place] heart wiinactiveApril 2024 9:10am HypertensioninactiveApril 2024 9:10amS/P PTCA (percutaneous transluminal coronary angioplasty)inactiveApril 2024 9:10am [facility] Work Phone: 1(502) 522-928804-02-2025 Telephone encounter Note* Telephone Encounter - Gaye Mata RN - 10/11/2024 4:17 PM EDT Patient's sent message patient had received Dexcom G7 CGM sensors from [employer] lastnight. Patient applied Omnipod 6 insulin pump [...] and CGM in the next few days. [facility]04-02-2025 Miscellaneous Notes* Telephone Encounter - Gaye Mata RN - 10/11/2024 4:17 PM EDT Patient's sent message patient had received Dexcom G7 CGM sensors from [employer] lastnight. Patient applied Omnipod 6 insulin pump [...] the next few days. documented in this encounterOhiohealth04-02-2025 Miscellaneous Notes* Telephone Encounter - Gaye Mata RN - 10/11/2024 4:00 PM EDT [facility] for pt to return call. Patient appears to now be connected to the sensor. Advised how to treat hypoglycemia. Recommended see educator for appt to review pump and sensor operation documented in this encounterOhiohealth04-02-2025 Telephone encounter Note * Telephone Encounter - Gaye Mata RN - 10/11/2024 4:00 PM EDT [facility] for pt to return call. Patient appears to now be connected to the sensor. Advised how to treat hypoglycemia. Recommended see educator for appt to review pump and sensor operation [facility]04-02-2025 Telephone encounter Note* Telephone Encounter - Ruchi Rhoades - 10/11/2024 11:37 AM EDT Images from the original note were not included. [facility]04-02-2025 Miscellaneous Notes* Telephone Encounter - Ruchi Rhoades - 10/11/2024 11:37 AM EDT Images from the original note were not included. * Telephone Encounter - Ruchi Rhoades - 10/11/2024 11:31 AM EDT Images from the original note were not included. Initiated PA for insulin pump cart,auto,BT,G6/7 (OMNIPOD 5 G6-G7 PODS, GEN 5,) crtg through [employer] Medicare Chart notes attached Questions Completed Waiting for determination [facility] Prior Financial Systems Analyst Endocrinology and Metabolism [place] * Telephone Encounter - Ayana Zavala APRN.CNP - 10/11/2024 8:07 AM EDT Received notice from pharmacy PA is request for Ominpod 5 pods. Please complete. documented in this encounterOhiohealth04-02-2025 Telephone encounter Note * Telephone Encounter - Ruchi Rhoades - 10/11/2024 11:31 AM EDT Images from the original note were not included. Initiated PA for insulin pump cart,auto,BT,G6/7 (OMNIPOD 5 G6-G7 PODS, GEN 5,) crtg through [employer] Chart notes attached Questions Completed Waiting for determination Ruchi Prior Financial Systems Analyst Endocrinology and Metabolism [place] [facility]04-02-[facility] Telephone encounter Note* Telephone Encounter - Ayana Zavala APRN.CNP - 10/11/2024 8:07 AM EDT Received notice from pharmacy PA is request for Ominpod 5 pods. Please complete. [facility]04-02-2025 Telephone encounter Note* Telephone Encounter - Ayana Zavala APRN.CNP - 10/11/2024 8:06 AM EDT Will send PA request in other encounter to PA team. [facility]04-02-2025 Miscellaneous Notes* Telephone Encounter - Ayana Zavala APRN.CNP - 10/11/2024 8:06 AM EDT Will send PA request in other encounter to PA team. documented in this encounterOhiohealth04-01-2025 Telephone encounter Note * Telephone Encounter - Erick Peguero LPN - 10/10/2024 3:28 PM EDT Spoke to [facility], he reported that the Dexcom supplies should be delivered today vis [employer]. Tracking nbr [id number]. According to his notes it was out for delivery at 5:48 am 10/10/2024. I attempted to reach patient at both nbrs listed, no answer. left with update. I will send a MyChart message as well. [facility]04-01-2025 Miscellaneous Notes* Telephone Encounter - Erick Peguero LPN - 10/10/2024 3:28 PM EDT Spoke to [facility], he reported that the Dexcom supplies should be delivered today vis [employer]. Tracking nbr [id number]. According to his notes it was out [...] office for follow up. documented in this encounterOhiohealth04-01-2025 Telephone encounter Note * Telephone Encounter - [...] to patient's provider office for follow up. [facility]03-26-2025 Telephone encounter Note* Telephone Encounter - Gaye Mata RN - 10/04/2024 4:38 PM EDT Patent called stating that he is out of Dexcom G7 CGM sensors and has been having difficulty getting the shipment from [employer], his DME supplier. Patient states he made 3 calls to them this week, one including a supervisor pigment making at [facility], who promised that the shipment was sent and would be received in a day or two. Advised patient to contact his provider's office to see if they are able to help as they submitted all the original paperwork to [facility] back in August and I am not sure if they are waiting on something from the office. Patient was also told to see if the provider's office had Dexcom G7 sensor samples to provide until his shipment arrives so he does not have to drive out to [facility]. Patient verbalized understanding. [facility]03-26-2025 Miscellaneous Notes* Telephone Encounter - Gaye Mata RN - 10/04/2024 4:38 PM EDT [employer] called stating that he is out of Dexcom G7 CGM sensors and has been having difficulty getting the shipment from [employer], his DME supplier. Patient states he made 3 calls to them this week, one including a supervisor pigment making at [facility], who promised that the shipment was sent and would be received in a day or two. Advised patient to contact his provider's office to see if they are able to help as they submitted all the original paperwork to [facility] back in August and I am not sure if they are waiting on something from the office. Patient was also told to see if the provider's office had Dexcom G7 sensor samples to provide until his shipment arrives so he does not have to drive out to [facility]. Patient verbalized understanding. documented in this encounterOhiohealth03-19-2025 Telephone encounter Note * Telephone Encounter - Gaye Mata RN - 09/27/2024 1:22 PM EDT In error [facility]03-19-2025 Miscellaneous Notes* Telephone Encounter - Gaye Mata RN - 09/27/2024 1:22 PM EDT In error documented in this encounterOhiohealth03-18-2025 Telephone encounter Note * Telephone Encounter - [...] already called Report to their ER Agreeable [facility]03-18-2025 Miscellaneous Notes* Telephone Encounter - Yanique Griffin [...] 09/26/2024 8:29 AM EDT Provided report to [place] [facility]. * Telephone Encounter - Erick Peguero LPN - 09/26/2024 8:18 AM EDT Left message on machine to call the office. * Telephone Encounter - Ramya Crandall, KARIN - 09/26/2024 8:10 AM EDT Pt identified by name and Pt given message below Stated understanding will take pt to [facility] Advised to f/u with endo upon [...] ( see 09-25-2024) Will document this in Doc[employer]/ basics * Telephone Encounter - Erick Peguero [...] in the ER immediately. documented in this encounterOhiohealth03-18-2025 Telephone encounter Note * Telephone Encounter - Ayana Zavala APRN.CNP - 09/26/2024 8:29 AM EDT Provided report to [facility]. [facility]03-18-2025 Telephone encounter Note* Telephone Encounter - Erick Peguero LPN - 09/26/2024 8:18 AM EDT Left message on machine to call the office. [facility]03-18-2025 Telephone encounter Note* Telephone Encounter - Ramya Crandall, RN - 09/26/2024 8:10 AM EDT Pt identified by name and Pt given message below Stated understanding will take pt to [facility] Advised to f/u with endo upon [...] 09-25-2024) Will document this in epic/ basics [facility]03-18-2025 Telephone encounter Note* Telephone Encounter - Erick Peguero LPN - 09/26/2024 7:47 AM EDT Attempted to reach patient at both numbers listed in demo. Left urgent messages on both V M [facility]03-18-2025 Telephone encounter Note* Telephone Encounter - Ayana Zavala APRN.CNP - 09/26/2024 7:39 AM EDT Received page regarding critical lab result of glucose 614 mg/dL. 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 Please call patient and instruct him to be seen in the ER immediately. [facility]03-17-2025 Instructions* Patient Instructions* Ayana Zavala APRN.CNP - [...] me in 4 weeks documented in this encounterOhiohealth03-17-2025 NoteHNO ID: [id number] Author: AYANA ZAVALA APRN.CNP Service: ? Author [...] in the meantime, but was able to berry picker Novolog on 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 in [place]. Per patient, this was done due to [...] by mouth once daily. Intestinal Chayo Modifiers bevphy-ouxtkayx-wshfzlq (CREON) 24,000-76,000 -120,000 unit cpDR Take 2 capsules by mouth three times daily with meals. and 1 with snacks (8/day) Digestive Enzyme Mixtures lutein-zeaxanthin 25-5 mg cap Take by mouth once daily. Alternative Therapy - Antioxidant Omeprazole Magnesium 20 mg tablet Take 20 mg by mouth. Gastric Acid Secretion Hemmer Automatic - Proton Pump Inhibitors (PPIs) PARoxetine (PAXIL) 40 mg tablet Take 40 mg by mouth every morning. Antidepressant - Selective Serotonin Reuptake Inhibitors (SSRIs) tamsulosin (FLOMAX) 0.4 mg Take 0.4 mg by mouth. Prostatic Hypertrophy Agent - jgdhu-4-Girtmrslkhji Antagonists Physical Activity: No formal program Diet: CHO Controlled Diet SMBG Frequency of Monitoring: Four times a Day Not connected with pump (more content not included)...[facility] 09-25-2024 History of Present illness Narrative* Ayana Zavala, AMADA.SHIRT HEMMER - 09/25/2024 2:25 PM EDT Images from [...] recently. He is having polydipsia and polyuria. HisSanta Rosa Consultingcom G7 is not connected with his pump currently. He reports remembering to put his sensor code in when he last changed this so is confused why that did not work. Reports he ran out of Novolog for his pump on Wednesday but he did have Novolog pens at home so did use this in the meantime, but was able to berry picker Novolog on 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 in [place]. Per patient, this was done due to [...] by mouth once daily. Intestinal Chayo Modifiers cwhgls-jwqaajwc-wzziifi (CREON) 24,000-76,000 -120,000 unit cpDR Take 2 capsules by mouth three times daily with meals. and 1 with snacks (8/day) Digestive Enzyme Mixtures lutein-zeaxanthin 25-5 mg cap Take by mouth once daily. Alternative Therapy - Antioxidant Omeprazole Magnesium 20 mg tablet Take 20 mg by mouth. Gastric Acid Secretion Hemmer Automatic - Proton PumpInhibitors (PPIs) PARoxetine (PAXIL) 40 mg tablet Take 40 mg by mouth every morning. Antidepressant - Selective Serotonin Reuptake Inhibitors (SSRIs) tamsulosin (FLOMAX) 0.4 mg Take 0.4 mg by mouth. Prostatic Hypertrophy Agent - hskfy-8-AdyhxukzkqseSfpxttxuuvb Physical Activity: No formal program Diet: CHO [...] - 1.30 mg/dL 1.31 High TBH EGFR-AF LUXEMBOURGER >=60 mL/min/1.73m 2 >60 TBH EGFR-NON AF LUXEMBOURGER >=60 mL/min/1.73m 2 52 Low BUN CREATININE RATIO 17.6 CALCIUM 8.5 - 10.1 mg/dL 9 Resulting Agency TB Specimen Collected: 09/13/24 9:23 AM Performed by: Kiwi Last Resulted: 09/13/24 10:54 AM Received From: [facility] Result Received: 09/25/24 2:18 PM Impression/Recommendations [...] LDL , TG LIPID PANEL (EXTERNAL) Order: [id number] Component Ref Range & Units Cholesterol 150 - 200 mg/dL 97 Low Triglycerides 27 - 150 mg/dL 38 HDL Cholesterol >39 mg/dL 50 VLDL 0 - 30 mg/dL 8 LDL (calc) <130 mg/dL 39 Cholesterol:HDL Ratio 1.0 - 5.0 1.9 Resulting Agency [facility] Specimen Collected: 01/22/24 6:06 AM Performed by: LEROY Last Resulted: 01/22/24 1:58 PM Received From: [facility] Result Received: 07/06/24 9:37 AM -- This [...] time of the patient encounter Ayana Zavala APRN.SHIRT HEMMER (Signed electronically to expedite mailing) documented in this encounterOhiohealth03-14-2025 Telephone encounter Note * Telephone Encounter - [...] once he wakes up to reviewpump issues. [facility]03-14-2025 Miscellaneous Notes* Telephone Encounter - Gaye Mata [...] up to reviewpump issues. documented in this encounterOhiohealth03-14-2025 Telephone encounter Note * Telephone Encounter - [...] to review pump settings and reinforce education. [facility]03-14-2025 Miscellaneous Notes* Telephone Encounter - Gaye Mata [...] settings and reinforce education. documented in this encounterOhiohealth02-24-2025 History of Present illness Narrative* Gaye Mata RN - 09/04/2024 1:00 PM EST DIABETES SELF-MANAGEMENT EDUCATION AND SUPPORT FOLLOW-UP VISIT Type of Diabetes: Type 2 Location: [place] Type of visit: In person individual Types [...] 5 insulin pump. Type of training:upgrade from [employer]uin If upgrade, patient was previously on the [...] Name: Insulet Omnipod 5 System Serial Number: [id number] Sync Date: 09/04/24 Device Time Offset (hh:mm): +00:00 Device Name: Insulet Omnipod Dash System Serial Number: [id number] Sync Date: 03/05/22 Device Time Offset (hh:mm): +00:00 Device Name: Insulet Omnipod Dash System Serial Number: [id number] Sync Date: 11/14/21 Device Time Offset (hh:mm): +00:00 Device Name: Insulet Omnipod DASH [place] Serial Number: Insulet Dash Sync Date: 09/19/20 Device Time Offset (hh:mm): +00:00 Device Name: Insulet Omnipod Dash System Serial Number: [id number] Sync Date: 09/19/20 Device Time Offset (hh:mm): [...] weeks. This is a non-billable encounter through [employer] but will be billed to the following [...] for patient selected goal(s) with dietitian and/or lottery office manager within 2-4 weeks/months via office visit, [employer] message, email, or phone call. Contactinformation provided to patient for lottery office manager. Educator to contact patient in 3 days [...] vary based on the plan requirements. Call [phone] to schedule a diabetes education follow up visit. Time Spent (Minutes): 120 This visit note will be communicated to the healthcare provider via access to shared medical record. SIGNATURE: Gaye Mata RN PATIENT NAME: Manolo Roche DATE: September 04, 2024 TIME: 12:45 PM PAGER: documented in this encounterOhiohealth02-24-2025 NoteHNO ID: [id number] Author: GAYE MATA RN Service: ? Author Type: Registered Nurse Type: Progress Notes Filed: 09/04/2024 15:22 Note Text: DIABETES SELF-MANAGEMENT EDUCATION AND SUPPORT FOLLOW-UP VISIT Type of Diabetes: Type 2 Location: [place] Type of visit: In person individual Types [...] Name: Insulet Omnipod? 5 System Serial Number: [id number] Sync Date: 09/04/24 Device Time Offset (hh:mm): +00:00 Device Name: Insulet Omnipod Dash? System Serial Number: [id number] Sync Date: 03/05/22 Device Time Offset (hh:mm): +00:00 Device Name: Insulet Omnipod Dash? System Serial Number: [id number] Sync Date: 11/14/21 Device Time Offset (hh:mm): +00:00 Device Name: Insulet Omnipod DASH? [place] Serial Number: Insulet Dash Sync Date: 09/19/20 Device Time Offset (hh:mm): +00:00 Device Name: Insulet Omnipod Dash? System Serial Number: [id number] Sync Date: 09/19/20 Device Time Offset (hh:mm): [...] Yes Patient (more content not included)...[facility]02-20-2025 Telephone encounter Note* Telephone Encounter - [...] instructions on day of training information to [email or web address] [facility]02-20-2025 Miscellaneous Notes* Telephone Encounter - Gaye Mata [...] instructions on day of training information to [email or web address] documented in this encounterOhiohealth02-19-2025 History of Present illness Narrative* Marie Tejeda, [...] assistance of a healthcare professional from the [facility], who has introduced a new monitor that [...] has beencommunicating with his healthcare team via [employer] and reports no feelings of depression. He [...] of a diabetic specialist at the [facility] and is managing well without any episodes [...] ran out of his inhaler while in [place] and was unable to refill it at [...] Pancreatic insufficiency (CMS/HCC) 60' documented in this encounterUniversity Health Lakewood Medical [id number] Telephone encounter Note* Telephone Encounter - Miguel A Goodwin MA - 08/15/2024 11:55 AM EST Form completed, faxed, confirmation received. Sent for scan. [facility]02-04-2025 Miscellaneous Notes* Telephone Encounter - Miguel A Goodwin MA - 08/15/2024 11:55 AM EST Form completed, faxed, confirmation received. Sent for scan. * Telephone Encounter - Miguel A Goodwin MA - 08/15/2024 10:23 AM EST Received a fax from [employer] for a physician's order. Placed on [employer]'s desk for signature on form and chart notes. documented in this encounterOhiohealth02-04-2025 Telephone encounter Note * Telephone Encounter - Miguel A Goodwin MA - 08/15/2024 10:23 AM EST Received a fax from [employer] for a physician's order. Placed on [employer] desk for signature on form and chart notes. [facility]01-29-2025 Telephone encounter Note* Telephone Encounter - Sheryl Ny MA - 08/09/2024 10:38 AM EST A form has been received from [employer] for [facility] note. Faxed [facility] note 07/06/24 to [phone]. Confirmation received. [facility]01-29-2025 Miscellaneous Notes* Telephone Encounter - Sheryl Ny MA - 08/09/2024 10:38 AM EST A form has been received from [employer] for [facility] note. Faxed [facility] note 07/06/24 to [phone]. Confirmation received. documented in this encounterOhiohealth01-14-2025 NoteHNO ID: [id number] Author: GAYE MATA RN Service: ? Author Type: Registered Nurse Type: Progress Notes Filed: 07/25/2024 17:09 Note Text: DIABETES CARE AND EDUCATION VISIT Location: [place] Type of visit: In person individual PATIENT'S [...] Name: Insulet Omnipod Dash? System Serial Number: [id number] Sync Date: 07/06/24 Device Time Offset (hh:mm): [...] basics AND daily use and CGM type: Webtab with reader. Patient understand he will need to download [employer] G7 eliane on his [employer] SE. Patient unable to recall log in for [employer] eliane. Patient downloaded G6 eliane, not G7 eliane. Educator needed to call [employer] for assistance in resetting password as patient unable to get into his email to obtain code to reset. -Medications: reviewed home DM meds, basal insulin, prandial insulin, prebolusing, stacking insulin and how to prevent it, injectable insulin discussed: using Ion Core DASH with [employer] G7 controller, and insulin pump instruction: pump benefits , pump requirements of user, pump limitations , infusion set rotation, activity mode, and insulin pump terminology: basal, bolus, carb ratio, BG target, hrelmir-xj-vdily/duration, and patient did not bring insulin vials with him so we were unable to start pump today. Patient and leaving for [place] for a month tomorrow and has rescheduled [...] TOPICS: 1. Patient and to return after [place] trip to start Omnipod 5 switch from [...] note tapan (more content not included)...[facility] 07-25-2024 History of Present illness Narrative* Gaye Mata, RN - 07/25/2024 1:04 PM EST DIABETES CARE AND EDUCATION VISIT Location: [place] Type of visit: In person individual PATIENT'S [...] - - - - DEVICES Device Name: Automation Alleylet AlgaeonipEka Software Solutions System Serial Number: [id number] [facility] Date: 07/06/24 Device Time Offset (hh:mm): +00:00 [...] Patient understand he will need to download [employer] G7 eliane on his Iphone SE. Patient unable to recall log in for Dexcom eliane. Patient downloaded G6 eliane, not G7 eliane. Educator needed to call [employer] for assistance in resetting password as patient [...] terminology: basal, bolus, carb ratio, BG target, badxhlz-md-oefxv/duration, and patient did not bring insulin vials with him so we were unable to start pump today. Patient and leaving for [place] for a month tomorrow and has rescheduled [...] TOPICS: 1. Patient and to return after [place] trip to start Omnipod 5 switch from DASH. Patient advised to remember to bring insulin vials, Omnipod 5 pods, phone, controller, and Omnipod ID login and password to next visit. DIABETES CARE AND EDUCATION PLAN: Individual follow-up Patient does not have EndoDexhart. Email sent prior to today's visit on [...] 2:52 PM PAGER: n/a documented in this encounterOhiohealth01-10-2025 Telephone encounter Note * Telephone Encounter - Gaye Mata RN - 07/21/2024 12:09 PM EST In error - patient does not have MyChart set up, status still PENDING. Patient's sent text with code again to create account [facility]01-10-2025 Miscellaneous Notes* Telephone Encounter - Gaye Mata RN - 07/21/2024 12:09 PM EST In error - patient does not have MyChart set up, status still PENDING. Patient's sent text with code again to create account documented in this encounterOhiohealth01-09-2025 History of Present illness Narrative* Yomi Chong [...] He has a scheduled appointment with his glue mill operator, Dr. Coppola, in the coming weeks. He [...] He is under the care of an assembly line brazer, Dr. Awa Zavala, at [facility]. He is recovering well from an I [...] prostatic hyperplasia) COPD (chronic obstructive pulmonary disease) ([facility]/HCC) Diabetes mellitus ([facility]/HCC) 10/04/2019 Ground glass opacity present on imaging of lung 02/05/2023 Hypertension ([facility]) ICD (implantable cardioverter-defibrillator) in place IPMN (intraductal papillary mucinous neoplasm) 06/23/2018 Added automatically from request for surgery [id number] Left ventricular dysfunction Lumbar spondylosis OA (osteoarthritis) [...] & D PARTIAL HIP ARTHROPLASTY Right 04/12/2023 CA TONSILLECTOMY & ADENOIDECTOMY <AGE 12 SPLENECTOMY, 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 Pain is [...] of his abdominal wall. documented in this encounterUniversity Health Lakewood Medical [id number] Consult noteRoger Ville [id number] Cardiology Consult Note Signed Patient: Manolo Roche MR#: [id number] : 1935 Acct:[id number] Age/Sex: 89 / M Adm Date: 5 Loc: 4N Room: 9V9426-0 Type: ADM INOo Attending Dr: Lisa Hidalgo [...] negative unless noted below or in HPI [facility] Medical History Type 1 diabetes mellitus CAD (coronary artery disease) Former smoker BPH (benign prostatic hyperplasia) Urinary frequency Cardiomyopathy wearing external defib Coronary artery disease involving [place] coronary artery of [place] heart withoutangina pectoris GI bleeding Dupuytren's contracture [...] days #30 tabs 05/07/23 [Rx Confirmed 07/16/24] fgrjph-wwwthofh-stjrtez 24,000-76,000-120,000 unit capsule,delayed rel (Creon) 2cap PO [...] tab PO DAILY 10/26/23 [History Confirmed 07/16/24] ecoqsy-tijototw-ftdklyk 24,000-76,000-120,000 unit capsule,delayed rel (Creon) 1cap PO [...] Code(s): I25.10 - Atherosclerotic heart disease of [place] coronary artery without angina pectoris (4) S/P [...] H/o PUD, BPH, Anxiety, depression. Current smoker. [facility] 04/30/23 - Two-vessel coronary artery disease- 100% prox LAD occlusion; 80% D1; LCx has 50% prox stenosis with 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 Echo 04/28/23 - EF 40-45%, mild LVH, trace MR and TR. [facility] 07/16/22 - Successful PCI ostial/proximal LAD-diagonal branch; true REAL ESTATE REPRESENTATIVE proximal/mid LAD (attempted wiring with balloon). [facility]: EF 30-35% ECHO 03/09/2024: ECHO which [...] call with any questions. Follow up with [facility] Cardiology as scheduled. Documented By: Chuck Velasco MD 01/03 1637 Signed By: 07/17/24 1652 [facility]01-06-2025 History and physical note Author Indra Guillory [facility]Note Date/TimeJanuary 2024 1:48[place] [address] Hospitalist H&P Signed Patient: Manolo Roche MR#: [id number] : 1935 Acct:[id number] Age/Sex: 89 / M Adm Date: 5 Loc: 3T Room: 8D8598-9 Type: ADM INOo Attending Dr: Indra Guillory [...] that which is noted above in HPI [facility] Medical History Type 1 diabetes mellitus CAD (coronary artery disease) Former smoker BPH (benign prostatic hyperplasia) Urinary frequency Cardiomyopathy wearing external defib Coronary artery disease involving [place] coronary artery of [place] heart withoutangina pectoris GI bleeding Dupuytren's contracture [...] days #30 tabs 05/07/23 [Rx Confirmed 07/16/24] mqomgl-dcgkmqrt-eosbulx 24,000-76,000-120,000 unit capsule,delayed rel (Creon) 2cap PO [...] tab PO DAILY 10/26/23 [History Confirmed 07/16/24] vwszxe-srqrxlpt-mehtvbd 24,000-76,000-120,000 unit capsule,delayed rel (Creon) 1cap PO [...] 2 Documented By: Indra Guillory MD [id number] Signed By: <Electronically signed by Indra Guillory MD> 07/17/24 0149 [facility] Work Phone: 1(459) 502-131401-06-2025 History and physical [place] [id number] Hospitalist H&P Signed Patient: Manolo Roche MR#: [id number] : 1935 Acct:[id number] Age/Sex: 89 / M Adm Date: 5 Loc: 3T Room: 5V5827-2 Type: ADM INOo Attending Dr: Indra Guillory [...] that which is noted above in HPI [facility] Medical History Type 1 diabetes mellitus CAD (coronary artery disease) Former smoker BPH (benign prostatic hyperplasia) Urinary frequency Cardiomyopathy wearing external defib Coronary artery disease involving kas[place] coronary artery of [place] heart withoutangina pectoris GI bleeding Dupuytren's contracture [...] days #30 tabs 05/07/23 [Rx Confirmed 07/16/24] qcdeoi-wrwwfwoe-ggidswa 24,000-76,000-120,000 unit capsule,delayed rel (Creon) 2cap PO [...] tab PO DAILY 10/26/23 [History Confirmed 07/16/24] fffcpw-hmjrceln-kxjsmtc 24,000-76,000-120,000 unit capsule,delayed rel (Creon) 1cap PO [...] 2 Documented By: Indra Guillory MD 5 0208 Signed By: 07/17/24 0148 [facility]01-05-2025 Evaluation note* Diagnosis Onset Date Resolution Status [...] August 31, 2024 9:56amCoronary artery disease involving [place] coronary artery of [place] heart wiinactiveFebruary 2024 9:56amHypertensioninactive August 31, 2024 9:56amS/P PTCA (percutaneous transluminal coronary angioplasty)inactiveFebruary 2024 9:56amIschemic cardiomyopathyacuteApril 2024 9:10amType 1 diabetes mellitusacuteApril 2024 9:10amAcute GI bleedingresolvedApril 2024 9:10amCoronary artery disease involving kasigl[place] coronary artery of [place] heart wiinactiveApril 2024 9:10amHypertension inactiveApril 2024 9:10amS/P PTCA (percutaneous transluminal coronary angioplasty)inactiveApril 2024 9:10am [facility] Work Phone: 1(432) 269-840301-05-2025 Radiology Diagnostic study [facility] Main Roundup [address] [place] [address] CT Scan Report Signed Patient: Manolo Roche MR#: [id number] : 1935 Acct:[id number] Age/Sex: 89 / M ADM Date: Loc: ER Room: Type: [facility] ER Attending Dr: Copies to: Bertin Smith [...] Sergei Valentin M.D.07/16/2024 4:48 PM Dictation Location: [place] [address] Transcribed By: [facility] 07/16/24 1648 Dictated By: Sergei Valentin II, MD 07/16/24 1636 Signed By: 07/16/24 1648 [facility] Work Phone: [phone]) [phone] Telephone encounter Note* Telephone Encounter - Gaye Mata RN - 07/13/2024 4:14 PM EST In error [facility]01-02-2025 Miscellaneous Notes* Telephone Encounter - Gaye Mata RN - 07/13/2024 4:14 PM EST In error documented in this encounterOhiohealth01-02-2025 Telephone encounter Note * Telephone Encounter - Gaye Mata RN - 07/13/2024 4:09 PM EST Called and spoke with patient and to schedule Omnipod DASH to Omnipod 5 pump upgrade. Patient states he has the new pods and is wearing the Dexcom G6 CGM. Patient was scheduled for carb counting/insulin pump training for 07/25/24 at 1-3 pm at [facility]. Location. Patient's Mychart status is PENDING, invite resent via text and to create account. Email sent to [employer] with clinic address, time, date, and what to bring day of training. [facility]01-02-2025 Miscellaneous Notes* Telephone Encounter - Gaye Mata RN - 07/13/2024 4:09 PM EST Called and spoke with patient and to schedule Omnipod DASH to Omnipod 5 pump upgrade. Patient states he has the new pods and is wearing the Dexcom G6 CGM. Patient was scheduled for carb counting/insulin pump training for 07/25/24 at 1-3 pm at [facility]. Location. Patient's Mychart status is PENDING, invite resent via text and to create account. Email sent to [employer] with clinic address, time, date, and what to bring day of training. documented in this encounterOhiohealth01-02-2025 History of Present illness Narrative* Stephanie Sheridan [...] and see him PRN documented in this encounterUniversity Health Lakewood Medical [id number] Miscellaneous Notes* Telephone Encounter - Ayana Zavala [...] training. I reached out to our lead refinery supervisor and am waiting to hear back, but hopefully can get him set up for training in the next two weeks. documented in this encounterOhiohealth12-26-2024 Telephone encounter Note * Telephone Encounter - [...] training. I reached out to our lead refinery supervisor and am waiting to hear back, but hopefully can get him set up for training in the next two weeks. [facility]12-26-2024 Note* Addendum Note - Ayana Zavala APRN.CNP - 07/06/2024 1:16 PM ESTAddended by: AYANA ZAVALA on: 07/06/2024 01:16 PM Modules accepted: Orders [facility]12-26-2024 Miscellaneous Notes* Addendum Note - Ayana Zavala APRN.CNP - 07/06/2024 1:16 PM ESTAddended by: AYANA ZAVALA on: 07/06/2024 01:16 PM Modules accepted: Orders documented in this encounterOhiohealth12-26-2024 Instructions* Patient Instructions* Ayana Zavala APRN.CNP - [...] 1 ounce protein) 150 calories or less [place] (1 slice bread, 1-2 slices turkey or [...] high in calories) 1 small granola bar (Temple Oats makes smaller granola bar or Special K bar), 10 nuts (try using the 100 calorie snack nut packs to limit the portion) Protein Cereal Bar (such as a [employer] Protein Bar) Low Calorie Protein Shake (EAS Advantage Carb Control), 1 small apple, orange, peach, pear (one that you can tuck in your palm) French Yogurt (has 20 grams of carb, 2 ounces of lean protein) or 6 ounce light yogurt 1/3 cup hummus with celery sticks and baby carrots Low Carb Light Wrap (1-2 slices lean meat), lettuce, tomato, 1 tsp light [place] dressing (There are many options which are both high in fiber and low in calories--100 calories or less per wrap) documented in this encounterOhiohealth12-26-2024 History of Present illness Narrative* Ayana Zavala [...] ([place]) [address] [place] [address] History of Present Illness Manolo Roche is a 89 year old male presents today for evaluation of DM Type 1. Here with and son. 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 in [place]. Per patient, this was done due to [...] (PROBIOTIC-10 ORAL) Take by mouth once daily. leuyhw-zjqcuczb-vkwldcx (CREON) 24,000-76,000 -120,000 unit cpDR Take 2 capsules by mouth three times daily with meals. and 1 with snacks (8/day) Digestive Enzyme Mixtures lutein-zeaxanthin 25-5 mg cap Take by mouth once daily. Alternative Therapy - Antioxidant Omeprazole Magnesium 20 mg tablet Take 20 mg by mouth. Gastric Acid Secretion Hemmer Automatic - Proton PumpInhibitors (PPIs) PARoxetine (PAXIL) 40 mg tablet Take 40 mg by mouth every morning. Antidepressant - Selective Serotonin Reuptake Inhibitors (SSRIs) tamsulosin (FLOMAX) 0.4 mg Take 0.4 mg by mouth. Prostatic Hypertrophy Agent - ahoqt-0-PxomrlkycnfqQwvfumelyar Physical Activity: No formal program Diet: CHO Controlled Diet SMBG Frequency of Monitoring: Four times a Day Summary of Personal CGM Findings: Dates worn: 06/22/24-07/05/24 CGM Type: [employer] 1- CGM recording is adequate for interpretation. [...] ains abnormal data COMPREHENSIVE METABOLIC PANEL Order: [id number] Component Ref Range & Units 5 mo [...] that does not use a race coefficient. [facility] MAIN LAB Specimen Collected: 01/24/24 6:05 AM Performed by: [employer] Last Resulted: 01/24/24 7:22 AM Received From: [facility] Result Received: 07/06/24 9:37 AM Impression/Recommendations IMPRESSION [...] LDL , TG LIPID PANEL (EXTERNAL) Order: [id number] Component Ref Range & Units 5 mo ago Cholesterol 150 - 200 mg/dL 97 Low Triglycerides 27 - 150 mg/dL 38 HDL Cholesterol >39 mg/dL 50 VLDL 0 - 30 mg/dL 8 LDL (calc) <130 mg/dL 39 Cholesterol:HDL Ratio 1.0 - 5.0 1.9 Resulting Agency [facility] Specimen Collected: 01/22/24 6:06 AM Performed by: [employer] [place] Last Resulted: 01/22/24 1:58 PM Received From: [facility] Result Received: 07/06/24 9:37 AM -- This [...] which included preparing to see the patient, dwui-td-ylif patient care, completing clinical documentation, counseling and educating the patient/family/caregiver, ordering medications, tests, or procedures, and communicating results to the mary ent/family/caregiver. Ayana Zavala APRN.KALANI (Signed electronically to expedite mailing) documented in this encounterOhiohealth12-26-2024 NoteHNO ID: [id number] Author: AYANA ZAVALA APRN.KALANI Service: ? Author [...] mail. PCP is DO Marie Rodriguez ([facility]) [address] [place] [address] History of Present Illness Manolo Roche is a 89 year old male presents today for evaluation of DM Type 1. Here with and son. 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 in [place]. Per patient, this was done due to [...] (PROBIOTIC-10 ORAL) Take by mouth once daily. chejqb-rsbqsbtu-ialzjgl (CREON) 24,000-76,000 -120,000 unit cpDR Take 2 capsules by mouth three times daily with meals. and 1 with snacks (8/day) Digestive Enzyme Mixtures lutein-zeaxanthin 25-5 mg cap Take by mouth once daily. Alternative Therapy - Antioxidant Omeprazole Magnesium 20 mg tablet Take 20 mg by mouth. Gastric Acid Secretion Hemmer Automatic - Proton Pump Inhibitors (PPIs) PARoxetine (PAXIL) 40 mg tablet Take 40 mg by mouth every morning. Antidepressant - Selective Serotonin Reuptake Inhibitors (SSRIs) tamsulosin (FLOMAX) 0.4 mg Take 0.4 mg by mouth. Prostatic Hypertrophy Agent - wbwdx-2-Rcujzqezzvuq Antagonists Physical Activity: No formal program Diet: [...] hypoglycemia n (more content not included)...[facility]12-23-2024 History of Present illness Narrative* Beto [...] Sheridan in 1-2 weeks. documented in this encounterUniversity Health Lakewood Medical [id number] History of Present illness Narrative* Marie Tejeda [...] 06/23/2018 Added automatically from request for surgery [id number] Left ventricular dysfunction Lumbar spondylosis OA (osteoarthritis) Pancreatitis Hospitalized Rotator cuff tendonitis SURGICAL HISTORY: Past Surgical History: Procedure Laterality Date APPENDECTOMY 1948 CERVICAL DISCECTOMY [address] ANGIOGRAM HEART CORONARY 01/21/2024 CT ANGIOGRAM TAVR 01/21/2024 FINE NEEDLE ASPIRATION 04/2018 HEART CATH 04/2023 heart cath HIP SURGERY Right 04/2023 right hip surgery OTHER SURGICAL HISTORY 04/2024 ICD placement PARTIAL HIP ARTHROPLASTY Right 04/12/2023 CA TONSILLECTOMY & ADENOIDECTOMY <AGE 14 SPLENECTOMY, TOTAL [...] Depression - At risk (01/21/2024) Received from [facility] PHQ-2 Total Score: 3 FAMILY HISTORY: Family [...] mg, 2 times daily before meals pancrelipase, Ian-Gbxu-Ivti, (Creon) 34244-33345 units capsule TAKE 2 CAPSULES BY MOUTH [...] . Reviewed recent hospitalization documented in this encounterUniversity Health Lakewood Medical [id number] Evaluation note* Diagnosis Onset Date Resolution Status [...] 16, 2024 6:08pmPleuritic chest painresolvedJanuary 2024 6:08pm [facility] Work Phone: 1([phone]) 865-174312-06-2024 Evaluation note* Diagnosis Onset Date Resolution Status [...] GI bleedingresolvedFebruary 2024 9:56amCoronary artery disease involving kasigl[place] coronary artery of [place] heart wiinactiveFebruary 2024 9:56amHypertensioninactiveFebruary 2024 9:56amS/P PTCA (percutaneous transluminal coronary angioplasty)inactiveFebruary 2024 9:56am [facility] Work Phone: 1(770) 970-110011-19-2024 History of Present illness Narrative* Marie Tejeda, - 05/30/2024 2:00 PM EST Images from the original note were not included. Manolo Roche is a 89 y.o. male presents with chief complaint of Hospital Follow-up HPI: HPI History of Present Illness The patient presents for evaluation of multiple medical concerns. He is managing his insulin pump independently, with an upcoming appointment with his assembly line brazer on 07/06/2024. His blood sugar levels have [...] Flowsheet Row Patient Outreach from 05/29/2024 in [facility] with Alejandrina Santamaria LPN Hospital Information ED, Hospital or Group Home Facility Discharge? Hospital Patient has been contacted within two business days of discharge Yes Diagnosis ICD placement Discharge Date 05/25/24 Discharged To: Home Setting Discharge Hospital [facility] Engagement Call Start Time 1019 Admission Date [...] prostatic hyperplasia) COPD (chronic obstructive pulmonary disease) ([facility]) Diabetes mellitus ([facility]) 10/04/2019 Ground glass opacity present on imaging of lung 02/05/2023 Hypertension (CMS/HCC) ICD (implantable cardioverter-defibrillator) in place IPMN (intraductal papillary mucinous neoplasm) 06/23/2018 Added automatically from request for surgery [id number] Left ventricular dysfunction Lumbar spondylosis OA (osteoarthritis) Pancreatitis Hospitalized Rotator cuff tendonitis SURGICAL HISTORY: Past Surgical History: Procedure Laterality Date APPENDECTOMY 1949 CERVICAL DISCECTOMY [address] ANGIOGRAM HEART CORONARY 01/21/2024 CT ANGIOGRAM TAVR 01/21/2024 FINE NEEDLE ASPIRATION 04/2018 HEART CATH 04/2023 heart cath HIP SURGERY Right 04/2023 right hip surgery PARTIAL HIP ARTHROPLASTY Right 04/12/2023 CA TONSILLECTOMY & ADENOIDECTOMY <AGE 14 SPLENECTOMY, 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 [facility] [place] VASECTOMY 1989 SOCIAL HISTORY: Social [...] Depression - At risk (01/21/2024) Received from [facility] PHQ-2 Total Score: 3 FAMILY HISTORY: Family [...] mg, 2 times daily before meals pancrelipase, Zlb-Zrmb-Tllz, (Creon) 65783-06901 units capsule TAKE 2 CAPSULES BY MOUTH [...] next month until his appointment with the assembly line brazer on July 06, 2024. Endo apt at [...] assistance of MARYANN Hedrick. documented in this encounterUniversity Health Lakewood Medical [id number] [place] [address] Discharge Summary Signed Patient: Manolo Roche MR#: [id number] : 1935 Acct:[id number] Age/Sex: 89 / M Adm Date: 4 Loc: Room: [address] [place] [address]: Abdulaziz Root MD Copies to: [...] DM s/p pancreatectomy, BPH who initially presented [facility] in Apr 2023 following a mechanical [...] for discharge and will follow-up with his glue mill operator as well as electrophysiology in the pacemaker [...] on June 01, 2024 at 1:00pm at [facility] - Device check: Will [...] Sodium 138, Potassium 4.0, Chloride 103, Carbon Utsnbei40.5, Anion Gap 11.5, BUN 19, Creatinine 0.75, [...] 05/12 11/02 1135 Signed By: 05/25/24 1139 [facility]11-14-2024 [place] [address] Cardiology Progress Note Signed Patient: Manolo Roche MR#: [id number] : 1935 Acct:[id number] Age/Sex: 89 / M Adm Date: 4 Loc: Room: [address] [place] [address] Type: ADM IN Attending Dr: Abdulaziz Root [...] 05/12 11/02 1035 Signed By: 05/25/24 1041 [facility]11-13-2024 Discharge summary Author Chuck Velasco [facility] Date/TimeNovember 2023 11:39am [place] [address] Discharge Summary Signed Patient: Manolo Roche MR#: [id number] : 1935 Acct:[id number] Age/Sex: 89 / M Adm Date: 4 Loc: Room: [address] [place] [address]: Abdulaziz Root MD Copies to: [...] DM s/p pancreatectomy, BPH who initially presented [facility] in Apr 2023 following a mechanical [...] for discharge and will follow-up with his glue mill operator as well as electrophysiology in the pacemaker [...] on June 01, 2024 at 1:00pm at [facility] - Device check: Will [...] Sodium 138, Potassium 4.0, Chloride 103, Carbon Jjaoscv94.5, Anion Gap 11.5, BUN 19, Creatinine 0.75, [...] signed by Chuck Velasco MD> 05/25/24 113 [facility] Work Phone: 1(160) 690-260910-16-2024 Evaluation note* [facility] 20[facility] 3:55pm# CAD s/p PCI in Jul 2023. 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 Current smoker. [facility] 04/30/23 - Two-vessel coronary artery disease- 100% prox LAD occlusion; 80% D1; LCx has 50% prox stenosis with 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 Echo 04/28/23 - EF 40-45%, mild LVH, trace MR and TR. [facility] 07/16/22 - Successful PCI ostial/proximal LAD-diagonal branch; true REAL ESTATE REPRESENTATIVE proximal/mid LAD (attempted wiring with balloon). EKG 09/07/23 - sinus peace 56 bpm, anterolateral TWI. EKG 09/08/23 - sinus peace 58 bpm, anterolateral and inferior TWI. [facility]: EF 30-35% ECHO 03/09/2024: ECHO which [...] up in 2 months in HF clinic. [facility] Work Phone: 1(218) 111-305410-16-2024 Evaluation note* Author Anat Perez [facility] 2023 2:55pm# CAD s/p PCI in Jul 2023. 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 Current smoker. [facility] 04/30/23 - Two-vessel coronary artery disease- 100% prox LAD occlusion; 80% D1; LCx has 50% prox stenosis with 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 Echo 04/28/23 - EF 40-45%, mild LVH, trace MR and TR. [facility] 07/16/22 - Successful PCI ostial/proximal LAD-diagonal branch; true REAL ESTATE REPRESENTATIVE proximal/mid LAD (attempted wiring with balloon). EKG 09/07/23 - sinus peace 56 bpm, anterolateral TWI. EKG 09/08/23 - sinus peace 58 bpm, anterolateral and inferior TWI. ECHO [facility] 20[facility] at [facility]: EF 30-35% ECHO 03/09/2024: ECHO which [...] up in 2 months in HF clinic. [facility] Work Phone: 1(407) 198-492010-16-2024 Chief complaint+Reason for visit Narrative * Chief [...] Type 1 diabetes mellitus July 16 6:08pm [facility] Work Phone: 1(761) 285-520710-16-2024 Chief complaint+Reason for visit Narrative * Chief [...] Type 1 diabetes mellitus July 16 6:08pm [facility] Work Phone: 1(830) 416-644010-14-2024 History of Present illness Narrative* Agnes Moreno, [...] 06/23/2018 Added automatically from request for surgery [id number] Left ventricular dysfunction Lumbar spondylosis OA (osteoarthritis) Pancreatitis Hospitalized Rotator cuff tendonitis SURGICAL HISTORY: Past Surgical History: Procedure Laterality Date APPENDECTOMY 1949 CERVICAL DISCECTOMY [address] ANGIOGRAM HEART CORONARY 01/21/2024 CT ANGIOGRAM TAVR 01/21/2024 FINE NEEDLE ASPIRATION 04/2018 HEART CATH 04/2023 heart cath HIP SURGERY Right 04/2023 right hip surgery PARTIAL HIP ARTHROPLASTY Right 04/12/2023 CA TONSILLECTOMY & ADENOIDECTOMY <AGE 14 SPLENECTOMY, TOTAL [...] Depression - At risk (01/21/2024) Received from [facility] PHQ-2 Total Score: 3 FAMILY HISTORY: Family [...] mg, 2 times daily before meals pancrelipase, Ecx-Llhc-Ybru, (Creon) 12898-36614 units capsule TAKE 2 CAPSULES BY MOUTH [...] He has been in contact with his power switchboard operator, but has notreceived any further communication. He [...] 06/23/2018 Added automatically from request for surgery [id number] Left ventricular dysfunction Lumbar spondylosis OA (osteoarthritis) Pancreatitis Hospitalized Rotator cuff tendonitis SURGICAL HISTORY: Past Surgical History: Procedure Laterality Date APPENDECTOMY 194 CERVICAL DISCECTOMY [address] ANGIOGRAM HEART CORONARY 01/21/2024 CT ANGIOGRAM TAVR 01/21/2024 FINE NEEDLE ASPIRATION 04/2018 HEART CATH 04/2023 heart cath HIP SURGERY Right 04/2023 right hip surgery PARTIAL HIP ARTHROPLASTY Right 04/12/2023 CA TONSILLECTOMY & ADENOIDECTOMY <AGE 14 SPLENECTOMY, 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 STOMACH SURGERY 12/2021 Stomach Ulcer Surgery - [facility] [place] VASECTOMY 1989 SOCIAL HISTORY: Social [...] Depression - At risk (01/21/2024) Received from [facility] PHQ-2 Total Score: 3 FAMILY HISTORY: Family [...] mg, 2 times daily before meals pancrelipase, Iug-Qdtu-Iagb, (Creon) 72043-28025 units capsule TAKE 2 CAPSULES BY MOUTH [...] blood sugar levels. A referral to an assembly line brazer, Dr. Liyah Yeung, has been made to [...] for follow-up. Diagnosis Plan 1. Pancreatic insufficiency ([facility]/HCC) Ambulatory referral to Endocrinology 2. Coronary arteriosclerosis ([facility]) metoprolol succinate XL (Toprol-XL) 25 MG 24 hr tablet 3. 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([facility]) Ambulatory referral to Endocrinology 4. 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 I am following Dr Tejeda's established plan of care for these issues. Dr Tejeda is in the office suite today and is supervising patient care. documented in this encounterUniversity Health Lakewood Medical [id number] History of Present illness Narrative* Marie Tejeda, [...] was black, leading to his transfer to [facility]. He had an ulnar fracture and [...] prostatic hyperplasia) COPD (chronic obstructive pulmonary disease) ([facility]) Diabetes mellitus (CMS/HCC) 10/04/2019 Ground glass opacity present on imaging of lung 02/05/2023 Hypertension (CMS/HCC) IPMN (intraductal papillary mucinous neoplasm) 06/23/2018 Added automatically from request for surgery [id number] Left ventricular dysfunction Lumbar spondylosis OA (osteoarthritis) Pancreatitis Hospitalized Rotator cuff tendonitis SURGICAL HISTORY: Past Surgical History: Procedure Laterality Date APPENDECTOMY 194 CERVICAL DISCECTOMY [address] ANGIOGRAM HEART CORONARY 01/21/2024 CT ANGIOGRAM TAVR 01/21/2024 FINE NEEDLE ASPIRATION 04/2018 HEART CATH 04/2023 heart cath HIP SURGERY Right 04/2023 right hip surgery PARTIAL HIP ARTHROPLASTY Right 04/12/2023 CA TONSILLECTOMY & ADENOIDECTOMY <AGE 14 SPLENECTOMY, 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 STOMACH SURGERY 12/2021 Stomach Ulcer Surgery - [facility] [place] VASECTOMY 1989 SOCIAL HISTORY: Social [...] Not at risk (04/05/2024) Received from [facility] PHQ-2 Patient Health Questionnaire-2 Score: 0 Recent Concern: Depression - At risk (01/21/2024) Received from [facility] PHQ-2 Total Score: 3 FAMILY HISTORY: [...] Sublingual NovoLOG FLEXPEN 100 UNIT/ML pen pancrelipase, Qmq-Cvqe-Bdwn, (Creon) 28271-99908 units capsule TAKE 2 CAPSULES BY MOUTH [...] mellitus with hyperosmolarity without nonketotic hyperglycemic hyperosmolar coma([facility]) POCT glycosylated hemoglobin (Hb A1C) docked device 3. Generalized anxiety disorder ([facility]) PARoxetine (Paxil) 40 MG tablet 4. Need for immunization against influenza Flu vaccine, trivalent, adjuvanted, preservative free 5. Acquired total absence of pancreas 6. Benign prostatic hyperplasia with urinary frequency 7. 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 ([facility]) 8. 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 H pylori ulcer see note to GI 10. 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 I recommended referral to specialty clinic for DM/pancreatectomy 11. Insulin pump in place 12. Pancreatic insufficiency ([facility]) 13. Duodenal ulcer see letter to GI cont PPI stop carafate - out of concern for binding meds 14. Medicare annual wellness visit, subsequent 15. ACP (advance care planning) 16. Bradycardia on low dose BB no changes for now 17. Orthostatic hypotension all BP meds stopped except for BB 18. Acute on chronic systolic congestive heart failure ([facility]) NYHA 3 Stgae D educated on importance [...] A note will be sent to the power switchboard operator to discuss the possibility of using a [...] Wednesday for follow-up. 90+' documented in this encounterUniversity Health Lakewood Medical [id number] Note Attestation signed by Patrick Beard MD at 04/14/2024 12:12 PM I saw and evaluated the patient. I reviewed the resident's/fellow's note and agree with the findings and plan documents in the resident's/fellow's note [facility] Gastroenterology New Patient Visit - History & [...] duodenal jejunostomy and splenectomy in [address] [facility] in [place]. Patient was referred for the gastroenterology clinic to be established as a new patient regarding his history of peptic ulcer disease with a recent EGD finding in [facility] in February 04, 2024 after he [...] follow-up scheduled. PREVIOUS LABS/IMAGING/ENDOSCOPY: EGD 02/05/2024 in [facility]: Showing gastritis with anastomosis ulcer with [...] Type 1 diabetes mellitus (CMS/HCC) Diabetes mellitus ([facility]/HCC) Acute GI bleeding Anemia of chronic disease Postoperative anemia Arthralgia of hip ASCVD (arteriosclerotic cardiovascular disease) Barretts esophagus Benign prostatic hyperplasia BMI 20.0-20.9, adult Closed intertrochanteric fracture of right hip ([facility]/HCC) Closed nondisplaced fracture of fourth cervical vertebra with routine healing Fracture of C5 vertebra, closed ([facility]/HCC) Current moderate episode of major 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 (CMS/HCC) Dyslipidemia E coli infection Elevated d-dimer Essential hypertension Fracture of cervical spinous process (CMS/HCC) Fractured hip ([facility]/HCC) Hip fracture due to osteoporosis, sequela Anxiety and depression Generalized anxiety disorder Gram negative sepsis ([facility]/HCC) Duodenal ulcer H pylori ulcer Stomach ulcer H/O splenectomy Helicobacter pylori (H. 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 ([facility]/HCC) Hypomagnesemia Impaired mobility and activities of daily living Insulin pump in place IPMN (intraductal papillary mucinous neoplasm) Iron deficiency Ischemic myocardial dysfunction Left carpal tunnel syndrome Left radial fracture Leukemoid reaction Melena Mild left ventricular systolic dysfunction (LVSD) Mixed hyperlipidemia Need for immunization against influenza Non-ST elevation (NSTEMI) myocardial infarction ([facility]/HCC) Nonsustained monomorphic ventricular tachycardia ([facility]/HCC) Osteoporosis Perforated viscus Pneumonia of both lungs due to infectious organism Protein-calorie malnutrition, mild ([facility]/HCC) Pyelonephritis Recent fracture of hip ([facility]/HCC) Smoker Sepsis without acute organ dysfunction ([facility]/HCC) Sepsis due to Escherichia coli without acute organ dysfunction ([facility]/HCC) S/P PTCA (percutaneous transluminal coronary angioplasty) Sepsis due to urinary tract infection ([facility]) Traumatic rhabdomyolysis ([facility]) Two-vessel coronary artery disease Closed lumbar vertebral fracture ([facility]) Past Medical History: History reviewed. No pertinent past medical history. Past Surgical History: History reviewed. No p (more content not included)...[facility]09-04-2024 Anthony left a message last week for financial coordinator Irish with [facility] regarding a referral from [...] Valerio Plummer and call back # of [phone]. [facility]07-29-2024 Progress note Author Anat Perez [facility] February 07, 2024 5:07pmNote Date/TimeJuly 2023 3:18[place] [address] Cardiology Progress Note Signed Patient: Manolo Roche MR#: [id number] : 1935 Acct:[id number] Age/Sex: 88 / M Adm Date: 4 Loc: Room: [address] [place] [address] Type: ADM IN Attending Dr: Warren Gross DO Copies to: ~ Date of Service: 02/07/2024 Subjective Interval history: Mr. Roche is a 88yo M with the PMH below who is admitted to [facility] on 02/06/24 for melanotic stool and [...] ordered for him after recent hospital stay[place]. On admission, stool occult blood was positive. [...] Type A Positive Antibody Screen Negative Crossmatch ([facility]) See Detail 02/06/24 02/06/24 02/06/24 [...] Calcium Magnesium Blood Type Antibody Screen Crossmatch ([facility]) 02/06/24 02/06/24 02/06/24 20:53 20:53 [...] Calcium Magnesium Blood Type Antibody Screen Crossmatch ([facility]) 02/07/24 02/07/24 02/07/24 06:21 06:35 [...] 1.6 L Blood Type Antibody Screen Crossmatch ([facility]) A&P - Cardiology (1) Acute GI bleeding: Code(s): K92.2 - Gastrointestinal hemorrhage, unspecified (2) Elevated troponin: Code(s): R79.89 - Other specified abnormal findings of blood chemistry (3) Coronary artery disease involving [place] coronary artery of [place] heart without angina pectoris: Code(s): I25.10 - Atherosclerotic heart disease of [place] coronary artery without angina pectoris (4) S/P PTCA (percutaneous transluminal coronary angioplasty): Code(s): Z98.61 - Coronary angioplasty status Plan # Acute recurrent GI Bleed in setting of known PUD (recent EGD on 09/01/23 found a 2 cm ulcer with anonbleeding visible vessel at the bulb of the duodenum). # CAD s/p PCI in Jul 2023. # Ischemic Cardiomyopathy s/p LifeVest ordered in [place] - Well compensated. # Non-ACS myocardial injury - Is due to demand-supply mismatch 2/2 acute anemia. 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 Current smoker. [facility] 04/30/23 - Two-vessel coronary artery disease- 100% prox LAD occlusion; 80% D1; LCx has 50% prox stenosis with 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 Echo 04/28/24 - EF 40-45%, mild LVH, trace MR and TR. [facility] 07/16/22 - Successful PCI ostial/proximal LAD-diagonal branch; true REAL ESTATE REPRESENTATIVE proximal/mid LAD (attempted wiring with balloon). EKG 09/07/23 - sinus peace 56 bpm, anterolateral TWI. EKG 09/08/23 - sinus peace 58 bpm, anterolateral and inferior TWI. - Pt is currently 6 months out from PCI. Will stop Plavix and if Hb remains stable, continue ASA 81mg daily. - Reviewed records from hospitalization at [facility] in [place]. He was hospitalized for NSTEMI and PNA. [...] follow Documented By: Anat Perez MD 02/07/24 7592 Signed By: <Electronically signed by Anat Perez MD> 02/07/24 170 [facility] Work Phone: 1(266) 277-377107-29-2024 Progress note Author Warren Gross [facility] February 07, 2024 12:28pmNote Date/TimeJuly 2023 12:29pm[place] [address] Hospitalist Progress Note Signed Patient: Manolo Roche MR#: [id number] : 1935 Acct:[id number] Age/Sex: 88 / M Adm Date: 4 Loc: Room: [address] [place] [address] Type: ADM IN Attending Dr: Warren Gross [...] Insuln.Pen SUBCUT 02/05/25 21:59 Not Given TID.WM.HS [facility] Protocol Insulin Aspart 0 units 02/07/24 08:00 02/07/24 10:58 Insulin Aspart 300 Units/3 Ml Insuln.Pen SUBCUT 02/06/25 07:59 Not Given TID.WITH.MEALS [facility] Protocol Insulin Glargine 6 units 02/07/24 09:00 [...] (1,000 Units) Tablet PO 02/06/25 08:59 DAILY [facility] A&P - Hospitalist Assessment/Plan (1) Acute GI [...] <Electronically signed by Warren Gross DO> 02/07/241227 [facility] Work Phone: 1(564) 915-768907-29-2024 [facility]24 Progress note Author Sushant Cordon [facility] February 06, 2024 9:45pmNote Date/TimeJuly 2023 9:45[place] [address] Progress Note Signed Patient: Manolo Roche MR#: [id number] : 1935 Acct:[id number] Age/Sex: 88 / M Adm Date: 4 Loc: Room: [address] [place] [address] Type: ADM IN Attending Dr: Nayeli Jimenez MD Copies to: ~ Date of Service: 02/06/2024 Progress Narrative Note PROGRESS NOTE Progress Note: Today the patient has developed progressively worsening hyperglycemia. The patient has history of total pancreatectomy a few years ago when he lived [facility]. He uses a G7 continuous glucose monitoring [...] <Electronically signed by Sushant Cordon DO> 02/06/242144 [facility] Work Phone: 1(981) 285-849807-28-2024 Consult note Author Chuck Velasco [facility] February 06, 2024 2:44pmNote Date/TimeJuly 2023 2:36pm[place] [address] Cardiology Consult Note Signed Patient: Manolo Roche MR#: [id number] : 1935 Acct:[id number] Age/Sex: 88 / M Adm Date: 4 Loc: 3T Room: [address] [place] [address] Type: ADM IN Attending Dr: Nayeli Jimenez MD Copies to: MD Nayeli Varner MD Robert J Vaschak,DO~ Cardiology HPI History of Present Illness Consult Date: 02/06/24 Reason for Consult: GI Bleeding HPI: Mr. Roche is a 88yo M with the PMH below who is admitted to [facility] on 02/06/24 for melanotic stool and [...] ordered for him after recent hospital stayin [place]. On admission, stool occult blood was positive. Severe anemia of 7.7, with normal Plt of 277. Troponin was mildly elevated at 50--77--85. EKG shows sinus peace with anterolateral and inferior TWI. Review of Systems Review of Systems All other systems reviewed & are negative unless noted below or in HPI [facility] Medical History Hypertension CAD (coronary [...] days #30 tabs 05/07/23 [Rx Confirmed 02/05/24] iuorys-clrxtnfa-pjicqln 24,000-76,000-120,000 unit capsule,delayed rel (Creon) 2cap PO [...] unit subcut HS 08/31/23 [History Confirmed 10/28/23] wdbdjcmiksts-czeiwwaj-tklzyc tablet (Multivitamin 50 Plus tablet) 1 tab [...] 90 days #180tabs 11/11/23 [Rx Confirmed 10/28/23] hoywrl-uiabeagx-iilejsl 24,000-76,000-120,000 unit capsule,delayed rel (Creon) 1cap PO [...] 8 MG/HR 10 mls/hr IV .Q10H TAVIA Rx#:[id number] Sodium Chloride 0.9% 1,000 ml 1 1000 / 1000 ,000 ml @ 999 mls/hr IV .Q1H1M ONE Rx#:[id number] Oral 0 / 0 Output: Urine 350 / 350 Other: Total Intake (Blood Product) Cumulative Amt Leukocyte Reduced Rbc Unit 325 [id number] Leukocyte Reduced Rbc Unit 325 [id number] Weight 65.5 kg 65.5 kg Date of Last Bowel Movement 02/06/24 02/06/24 Lab 02/05/24 19:34 PT 15.5 H INR 1.3 APTT 23.6 L A&P - Cardiology (1) Acute GI bleeding: Code(s): K92.2 - Gastrointestinal hemorrhage, unspecified (2) Elevated troponin: Code(s): R79.89 - Other specified abnormal findings of blood chemistry (3) Coronary artery disease involving [place] coronary artery of [place] heart without angina pectoris: Code(s): I25.10 - Atherosclerotic heart disease of [place] coronary artery without angina pectoris (4) S/P PTCA (percutaneous transluminal coronary angioplasty): Code(s): Z98.61 - Coronary angioplasty status Plan # Acute recurrent GI Bleed in setting of known PUD (recent EGD on 09/01/23 found a 2 cm ulcer with anonbleeding visible vessel at the bulb of the duodenum). # CAD s/p PCI in Jul 2023. # Cardiomyopathy s/p LifeVest ordered in [place] - Well compensated. # Non-ACS myocardial injury - Is due to demand-supply mismatch 2/2 acute anemia. 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 Current smoker. [facility] 04/30/23 - Two-vessel coronary artery disease- 100% prox LAD occlusion; 80% D1; LCx has 50% prox stenosis with 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 Echo 04/28/24 - EF 40-45%, mild LVH, trace MR and TR. [facility] 07/16/22 - Successful PCI ostial/proximal LAD-diagonal branch; true REAL ESTATE REPRESENTATIVE proximal/mid LAD (attempted wiring with balloon). EKG 09/07/23 - sinus peace 56 bpm, anterolateral TWI. EKG 09/08/23 - sinus peace 58 bpm, anterolateral and inferior TWI. - Get records from [place] on recent hospitalization and LifeVest. - GI [...] signed by Chuck Velasco MD> 02/06/24 1444 [facility] Work Phone: 1(872) 827-943707-28-2024 Progress note Author Nayeli Jimenez [facility] February 06, 2024 12:35pmNote Date/TimeJuly 2023 12:35[place] [address] Hospitalist Progress Note Signed Patient: Manolo Roche MR#: [id number] : 1935 Acct:[id number] Age/Sex: 88 / M Adm Date: 4 Loc: 3T Room: 7N2386-4 Type: ADM IN Attending Dr: Nayeli Jimenez MD Copies to: ~ Date of Service: 02/06/2024 Subjective Subjective Narrative: Patient was seen evaluated at bedside, remained afebrile, hemodynamically appears stable, patient denies any BMs while here. Seen by GI team recommended cardiac clearance given his cardiac hx. Will obtain records from [place] as pt recently been there for concerns [...] (1,000 Units) Tablet PO 02/06/25 08:59 DAILY [facility] A&P - Hospitalist Assessment/Plan (1) Acute GI [...] signed by Nayeli Jimenez MD> 02/06/24 1235 [facility] Work Phone: 1(547) 887-869707-28-2024 Consult note Author Manuel Barraza [facility] February 06, 2024 9:36amNote Date/TimeJuly 2023 9:[address] [place] [address] Gastroenterology Consult Note Signed Patient: Manolo Roche MR#: [id number] : 1935 Acct:[id number] Age/Sex: 88 / M Adm Date: 4 Loc: Room: [address] [place] [address] Type: ADM IN Attending Dr: Nayeli Jimenez MD Copies to: MD Nayeli Rendon MD Robert J Vaschak,DO~ HPI Data of Consult Date of Consultation: 02/06/24 Requesting Physician: Nayeli Jimenez MD Consult Narrative History of present illness: Mr. Roche is a 88 year old male admitted with syncopal episode. Briefly, the patient presented earlier this month to the [facility] after being found down, unresponsive noted low blood sugars. He was ultimately transferred to [facility] in [place]. Noted a nondisplaced ulnar fracture, atypical PNA, [...] weeks ago, prior to his admission in [place]. She does not think he is on his PPI any longer, she believes he completed treatment with that. Remote colonoscopy she reports as normal. On admission BPs initially soft, but fluid responsive. Hgb down ~2 gram from discharge from [place] 2 weeks ago. Uptrending troponin. Havingsome dynamic [...] Hematologic/Lymphatic: Denies easy bruising and Denies lymphadenopathy [facility] Medical History (Updated 02/06/24 @ [...] days #30 tabs 05/07/23 [Rx Confirmed 02/05/24] zgiduw-rkqvekpf-xrmttaq 24,000-76,000-120,000 unit capsule,delayed rel (Creon) 2cap PO [...] unit subcut HS 08/31/23 [History Confirmed 10/28/23] hybglmwuwieq-enjxhbmy-ilsehh tablet (Multivitamin 50 Plus tablet) 1 tab [...] 90 days #180tabs 11/11/23 [Rx Confirmed 10/28/23] ixunri-qoqdpvjr-sovfftq 24,000-76,000-120,000 unit capsule,delayed rel (Creon) 1cap PO [...] Type A Positive Antibody Screen Negative Crossmatch ([facility]) See Detail 02/06/24 06:56 Corrected [...] signed by Manuel Barraza MD> 02/06/24 0936 [facility] Work Phone: 1(332) 452-867407-28-2024 History and physical note Author Sushant Cordon [facility] February 06, 2024 2:52amNote Date/TimeJuly 2023 2:22[place] [address] Hospitalist H&P Signed Patient: Manolo Roche MR#: [id number] : 1935 Acct:[id number] Age/Sex: 88 / M Adm Date: 4 Loc: Room: [address] [place] [address] Type: ADM IN Attending Dr: Sushant Cordon [...] for him after recent hospital stay in [place]. 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 He describes that yesterday was terrible [...] state that after coming home from the [facility] with the LifeVest he beganusing Aleve due to the discomfort theLifeVest was causing on his back. He doessay I never took more than prescribed. He does recall getting the endoscopy by Dr. Shearer back in November but did not really seem to fully comprehend the results. He says that now a [facility] hospital was he originally [facility] where theydid an EKG and then promptly transported him to [facility]. At [facility] he does not know all the testing [...] except as mentioned elsewhere in the documentation. 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 He is wearing the [employer]. Jean Paul continuous glucose monitoring device on [...] <Electronically signed by Sushant Cordon DO> 02/06/24251 [facility] Work Phone: 1(323) 219-758904-11-2024 Evaluation note* Author Alberto Shearer [facility]AuthoredApril 2023 8:26yq03-voft-khc man with history of coronary artery disease s/p stent placement on 07/16/2023 who was recently hospitalized for melena s/p EGD with control of bleeding who came today for follow-up. 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 pylori, patient completed quadruple therapy, he has been on Protonix 40 mg twice daily since the EGD. -Will arrange for EGD to assess ulcer healing and to confirm H. pylori eradication. -I discussed with the patient possible Lewis's diagnosis and recommended EGD every 3 to 5 years. 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 He will follow up with primary Cardiology next week [facility] Work Phone: 1(161) 735-920002-05-2024 Miscellaneous Notes* Assessment & Plan Note - [...] Problem(s): ASHD (arteriosclerotic heart disease) Jun 2023 [facility] presented due to mechanical fall. Incidental troponin elevations Echo EF 40-45% Cath: two-vessel disease; ef 40% anterior hypokinesis Elective PCI: Jul LAD: unsuccessful attempt - REAL ESTATE REPRESENTATIVE oDiag PCI/Mark 3.5 x 18mm Daily activity < 4 METs documented in this encounterWood [facility] Hospital Work Phone: 1([phone]) 418-423302-05-2024 Evaluation + Plan note* Assessment & Plan Note - JAMIE Miramontes - 08/16/2023 2:37 PM ESTAssociated Problem(s): ASHD (arteriosclerotic heart disease) Jun 2023 [facility] presented due to mechanical fall. Incidental troponin elevations Echo EF 40-45% Cath: two-vessel disease; ef 40% anterior hypokinesis Elective PCI: Jul LAD: unsuccessful attempt - REAL ESTATE REPRESENTATIVE oDiag PCI/[place] 3.5 x 18mm Daily activity < 4 METs [facility] Work Phone: 1([phone]) 788-505102-05-2024 History of Present illness Narrative* JAMIE Miramontes [...] to date. Will be seeking POCfrom primary glue mill operator. Patient reports that overall has complaint(s) [...] to Plavix. Will schedule follow-up with primary glue mill operator Dr. Perez next week. Review of [...] Assessment: ASHD (arteriosclerotic heart disease) Jun 2023 [facility] presented due to mechanical fall. Incidental troponin elevations Echo EF 40-45% Cath: two-vessel disease; ef 40% anterior hypokinesis Elective PCI: Jul LAD: unsuccessful attempt - REAL ESTATE REPRESENTATIVE oDiag PCI/Mark 3.5 x 18mm Daily activity [...] to the office Sammy Berman MSN, JAMIE, PMHNP-[facility] Please excuse any errors in grammar or translation related to this dictation. Voice recognition software was utilized to prepare this document. documented in this encounterWood [facility] Hospital Work Phone: 1(520) 299-961402-05-2024 Instructions* Patient Instructions* JAMIE Miramontes - 08/16/2023 [...] medications to the office documented in [facility]Wood [facility] Work Phone: 1(654) 182-943501-05-2024 Discharge summary Author Federico Ryan [facility] July 16, 2023 4:09pmNote Date/TimeJan2023 4:06pmRoger Ville [id number] Discharge Summary Signed Patient: Manolo Roche MR#: [id number] : 1935 Acct:[id number] Age/Sex: 88 / M Adm Date: 4 [...] the LAD with 3.5 x 18 mm [place] stent 5. Chronic total occlusion proximal/mid LAD [...] branch. LAD was attempted and deemed a REAL ESTATE REPRESENTATIVE and therefore aborted, diagonal branch was stented with a 3.5 x 18 mm [place] stent without complications Patient will be discharged [...] doctor or pharmacist, without first calling the glue mill operator who implanted the stent. If you [...] weight lifting, stair steppers, etc. until the glue mill operator approves these activities. Check with the glue mill operator on your first follow-up visit. CALL YOUR PHYSICIAN at [phone]: -If bleeding should occur from the catheter insertion site- apply pressure to the site then immediately call us. -Report any fever, redness, drainage, increased swelling, or firmness at the catheter insertion site. Some bruising or slight swelling may be present at thetime of discharge. -Should arm or leg become cold, numb, white, or blue, contact the glue mill operator immediately. -IF you should experience episodes [...] is recommended. Please call Central Scheduling at [phone] to schedule your appointment.] The attending glue mill operator or [facility] nurse clinician should provide you with specific instructions regarding activity, diet, medications, and further follow up for you. Follow the medication instructions provided on your discharge. If the dosages and instructions on this sheet differ from the dosage and instructions on the bottle, follow the instructions on the bottle. [facility] is not responsible for incorrect prescription information [...] 30 0RF Follow Up: [facility] [Outside] - 08/16/23 2:00 pm Documented By: Federico Davis DO 07/16/23 1602 Signed By: <Electronically signed by Federico Davis DO> 07/16/23 1609 [facility] Work Phone: 1(379) 194-259801-05-2024 [facility] History of Present illness Narrative* Govind Davis [...] Future 3. NSTEMI (non-ST elevated myocardial infarction) ([facility]) - Follow Up In Cardiology; Future 4. Essential hypertension 5. Diabetes mellitus type II, non insulin dependent ([facility]) 6. Closed fracture of right hip, initial encounter ([facility]) [facility]: 1(379) 265-769711-14-2023 Instructions* Patient Instructions* Lori Pelayo LPN - [...] time of your visit. [facility] Work Phone: 1(181) 833-537711-10-2023 Evaluation note* Encounter Date Diagnosis Assessment Notes Treatment Notes Treatment Clinical Notes May, Closed displaced int ertrochanteric fracture of right femur, initial encounter (ICD-10 - S72.141A) Radiographs of right hip was reviewed with the patient today, along with a physical examination. Patient should continue with PT. Continue use of pain medication to control pain. [employer] Other 10-27-2023 Progress note Author Fredi Medrano [facility] May 07, 2023 12:48pmNote Date/TimeOctober 2022 12:[place] [address] Physiatry(Rehab) Progress Note Signed Patient: Manolo Roche MR#: [id number] : 1935 Acct:[id number] Age/Sex: 88 / M Adm Date: 3 Loc: Room: [address] [place] [address] Type: ADM IN Attending Dr: Fredi Medrano [...] hypoglycemic in 40s. Patient was brought to [facility] ER where imaging demonstrated mildly displaced [...] mg 05/03/23 16:59 Bisacodyl 10 Mg Supp.Rect CA 05/02/24 16:58 DAILY PRN Constipation Calcium Carbonate [...] 16:59 Docusate Enema 283 Mg/5 Ml Enema CA 05/02/24 16:58 DAILY PRN Constipation Enoxaparin Sodium [...] Insuln.Pen SUBCUT 05/02/24 16:59 6 units TID.WITH.MEALS [facility] Administration Protocol Insulin Aspart 0 units 05/03/23 18:00 05/07/23 12:13 Insulin Aspart 300 Units/3 Ml Insuln.Pen SUBCUT 05/02/24 17:59 2 units ACHS [facility] Administration Protocol Insulin Glargine 7 units [...] Code(s): I25.10 - Atherosclerotic heart disease of [place] coronary artery without angina pectoris Status: Acute [...] Code(s): I25.10 - Atherosclerotic heart disease of [place] coronary artery without angina pectoris Status: Acute [...] equipment to enhance the patient's a functional zoroastrian Ensure adequate nutrition and hydration Sleep no issues Pain: Continue current regimen. Discharge planning Home with in 7 to 10 days. I spent greater than 15 minutes for services, including zzae-sx-ouoz encounter with the patient, discussion of the case, plan of care, and exam; and owcvzox-zp-hpya activities, such as reviewing pertinent residential sales consultant documentation, recent therapy notes, laboratory and radiology studies, and discussion of case with care team including physician, nursing, correctional casework specialist, and therapists. More than 50 % of time was spent on patient/family counseling or coordination ofcare. Plan: I completed a substantive portion of this encounter, the medical decision makingportion of this note in its entirety, including Allied health note review, nursing note review, residential sales consultant note review,discussion with nursing and case management, and more than 50% of my time was spent on counseling and coordination of care, time spent 25 minutes Patient was personally seen by me, Dr. Medrano, on the day of encounter, reviewed the history and the relevant portions of the chart, including current orders, allied health and residential sales consultant notes, labs/imaging and performed smyth elements of exam and I formulated the plan of care and facilitated the medical decision making. Documented By: Fredi Medrano MD 1234 Signed By: <Electronically signed by Fredi Medrano MD> 05/07/23 1248 [facility] Work Phone: 1(998) 518-847010-26-2023 Progress note Author Fredi Medrano [facility] May 06, 2023 2:46pmNote Date/TimeOctober 2022 12:[place] [address] Physiatry(Rehab) Progress Note Signed Patient: Manolo Roche MR#: [id number] : 1935 Acct:[id number] Age/Sex: 88 / M Adm Date: 3 Loc: Room: [address] [place] [address] Type: ADM IN Attending Dr: Fredi Medrano [...] hypoglycemic in 40s. Patient was brought to [facility] ER where imaging demonstrated mildly displaced [...] and affect appropriate. Normal speech. Objective <Teena Vitcoria APRN - Last Filed: 05/06/23 13:14> Labs [...] mg 05/03/23 16:59 Bisacodyl 10 Mg Supp.Rect CA 05/02/24 16:58 DAILY PRN Constipation Calcium Carbonate [...] 16:59 Docusate Enema 283 Mg/5 Ml Enema CA 05/02/24 16:58 DAILY PRN Constipation Enoxaparin Sodium [...] Insuln.Pen SUBCUT 05/02/24 16:59 7 units TID.WITH.MEALS [facility] Administration Protocol Insulin Aspart 0 units 05/03/23 18:00 05/06/23 06:38 Insulin Aspart 300 Units/3 Ml Insuln.Pen SUBCUT 05/02/24 17:59 Not Given ACHS [facility] Protocol Insulin Glargine 7 units 05/03/23 [...] mg DAILY [facility] Administration Assessment/Plan <Teena Victoria, CLINICAL LAB CLERK - Last Filed: 05/06/23 13:14> Assessment/Plan (1) Closed intertrochanteric fracture of right hip: Code(s): S72.141A - Displaced intertrochanteric fracture of right femur, initial encounter for closed fracture Status: Acute (2) CAD (coronary artery disease): Code(s): I25.10 - Atherosclerotic heart disease of [place] coronary artery without angina pectoris Status: Acute [...] Code(s): I25.10 - Atherosclerotic heart disease of [place] coronary artery without angina pectoris Status: Acute [...] equipment to enhance the patient's a functional zoroastrian Ensure adequate nutrition and hydration Sleep no issues Pain: Continue current regimen. Discharge planning Home with in 7 to 10 days. I spent greater than 15 minutes for services, including kvvl-ih-ohsk encounter with the patient, discussion of the case, plan of care, and exam; and tipkslb-ln-zumw activities, such as reviewing pertinent residential sales consultant documentation, recent therapy notes, laboratory and radiology studies, and discussion of case with care team including physician, nursing, correctional casework specialist, and therapists. More than 50 % of [...] the chart, including currentorders, allied health and residential sales consultant notes, labs/imaging and plan of care as above. Documented By: Teena Victoria APRN 05/06/23 1 250 Signed By: <Electronically signed by AMADA Victoria> 05/06/23 1314 <Electronically signed by Fredi Medrano MD> 05/06/23 1446 [facility] Work Phone: 1(596) 173-579910-26-2023 Consult note Author Vidya Robert [facility] May 06, 2023 1:15pmNote Date/TimeOct2022 3:[place] [address] Hospitalist Consult Note Signed Patient: Manolo Roche MR#: [id number] : 1935 Acct:[id number] Age/Sex: 88 / M Adm Date: 3 Loc: Room: 0K5696-6 Type: ADM IN Attending Dr: Fredi Medrano [...] negative unless noted below or in HPI [facility] Medical History (Updated 05/04/23 @ [...] Allergies Allergy (Verified 04/28/23 12:20) Home Medications blpctw-tckowxwm-lgvmrzy 24,000-76,000-120,000 unit capsule,delayed rel (Creon) 2cap PO [...] mg 05/03/23 16:59 Bisacodyl 10 Mg Supp.Rect CA 05/02/24 16:58 DAILY PRN Constipation Calcium Carbonate [...] 16:59 Docusate Enema 283 Mg/5 Ml Enema CA 05/02/24 16:58 DAILY PRN Constipation Enoxaparin Sodium [...] Documented By: Nidia Wright APRN 04/12 11/01 2121 Signed By: <Electronically signed by AMADA Wright> 05/05/23 2548 <Electronically signed by Vidya Robert MD> 05/06/23 1319 [facility] Work Phone: 1([phone] 638-391310-25-2023 Progress note Author Fredi Medrano [facility] May 05, 2023 1:10pmNote Date/TimeOctober 2022 1:11[place] [address] Physiatry(Rehab) Progress Note Signed Patient: Manolo Roche MR#: [id number] : 1935 Acct:[id number] Age/Sex: 88 / M Adm Date: 3 Loc: Room: [address] [place] [address] Type: ADM IN Attending Dr: Fredi Medrano [...] hypoglycemic in 40s. Patient was brought to [facility] ER where imaging demonstrated mildly displaced [...] mg 05/03/23 16:59 Bisacodyl 10 Mg Supp.Rect CA 05/02/24 16:58 DAILY PRN Constipation Calcium Carbonate [...] 16:59 Docusate Enema 283 Mg/5 Ml Enema CA 05/02/24 16:58 DAILY PRN Constipation Enoxaparin Sodium [...] Code(s): I25.10 - Atherosclerotic heart disease of [place] coronary artery without angina pectoris Status: Acute [...] Code(s): I25.10 - Atherosclerotic heart disease of [place] coronary artery without angina pectoris Status: Acute [...] equipment to enhance the patient's a functional zoroastrian Ensure adequate nutrition and hydration Sleep no issues Pain: Continue current regimen. Discharge planning Home with in 7 to 10 days. Plan: I completed a substantive portion of this encounter, the medical decision makingportion of this note in its entirety, including Allied health note review, nursing note review, residential sales consultant note review,discussion with nursing and case management, and more than 50% of my time was spent on counseling and coordination of care, time spent 25 minutes Patient was personally seen by me, Dr. Medrano, on the day of encounter, reviewed the history and the relevant portions of the chart, including current orders, allied health and residential sales consultant notes, labs/imaging and performed smyth elements of exam and I formulated the plan of care and facilitated the medical decision making. Documented By: Fredi Medrano MD 1308 Signed By: <Electronically signed by Fredi Medrano MD> 05/05/23 1310 [facility] Work Phone: 1(109) 743-179710-25-2023 History and physical note Author Fredi Medrano [facility] May 05, 2023 10:01amNote Date/TimeOct2022 11:35[place] [address] Physiatry (Rehab) H&P Signed Patient: Manolo Roche MR#: [id number] : 1935 Acct:[id number] Age/Sex: 88 / M Adm Date: 3 Loc: Room: [address] [place] [address] Type: ADM IN Attending Dr: Fredi Medrano [...] hypoglycemic in 40s. Patient was brought to [facility] ER where imaging demonstrated mildly displaced [...] two-story home. Does not use assistive devices. [facility] Medical History Anxiety and depression [...] 12:20) Home and Active Meds: Home Medications ejeohy-ovklbwae-mvrpysb 24,000-76,000-120,000 unit capsule,delayed rel (Creon) 2cap PO [...] Bisacodyl (Bisacodyl 10 Mg Supp.Rect) 10 mg CA DAILY PRN PRN Reason: Constipation Stop: 05/02/24 [...] Enema 283 Mg/5 Ml Enema) 283 mg CA DAILY PRN PRN Reason: Constipation Stop: 05/02/24 16:58 Enoxaparin Sodium (Enoxaparin 40 Mg/0.4 Ml Syringe) 40 mg SUBCUT DAILY@1000 [facility] Stop: 05/03/24 09:59 Insulin Aspart (Insulin Aspart 300 Units/3 Ml Insuln.Pen) 0 units SUBCUT TID.WITH.MEALS [facility]; Protocol Stop: 05/02/24 16:59 Last Admin: 05/04/23 08:27 Dose: 7 units Insulin Aspart (Insulin Aspart 300 Units/3 Ml Insuln.Pen) 0 units SUBCUT ACHS [facility]; Protocol Stop: 05/02/24 17:59 Last Admin: 05/04/23 08:27 Dose: 1 units Insulin Glargine (Insulin Glargine 300 Units/3 Ml Insuln.Pen) 7 units SUBCUT BID [facility] Stop: 05/02/24 20:59 Last Admin: 05/04/23 [...] 30 Mg Tablet) 30 mg PO DAILY [facility] Stop: 05/03/24 08:59 Last Admin: 05/04/23 08:10 Dose: 30 mg Sennosides (Sennosides 8.6 Mg Tablet) 2 tab PO DAILY@12 PRN PRN Reason: If no BM in 2 days Stop: 05/03/24 11:59 Sodium Chloride (Sodium Chloride 0.9 % 10 Ml Syringe) 0 ml IV-PUSH PRN PRN PRN Reason: Flush Stop: 05/02/24 16:58 Tamsulosin HCl (Tamsulosin 0.4 Mg Cap.Er.24h) 0.4 mg PO DAILY [facility] Stop: 05/03/24 08:59 Last Admin: 05/04/23 08:10 Dose: 0.4 mg Triamcinolone Acetonide (Triamcinolone 0.1% Cream 15 Gm Tube) 1 applic TOPICAL QID PRN PRN Reason: Irritation Stop: 05/02/24 17:10 Valsartan (Valsartan 80 Mg Tablet) 80 mg PO DAILY [facility] Stop: 05/03/24 08:59 Last Admin: 05/04/23 [...] 24 hour daily monitoring and intervention from Loading Checker as well as other consulting physicians including internal medicine as well as 24 hour daily procedures tech nursing - for medical safe / optimal [...] Code(s): I25.10 - Atherosclerotic heart disease of [place] coronary artery without angina pectoris Status: Acute [...] Code(s): I25.10 - Atherosclerotic heart disease of [place] coronary artery without angina pectoris Status: Acute [...] equipment to enhance the patient's a functional zoroastrian Ensure adequate nutrition and hydration Sleep no issues Pain: Continue current regimen. Discharge planning Home with in 7 to 10 days. I spent greater than 45 minutes for services, including zugz-lb-vtfo encounter with the patient, discussion of the case, plan of care, and exam; and dqmtnxi-wj-swwi activities, such as reviewing pertinent residential sales consultant documentation, recent therapy notes, laboratory and radiology studies, and discussion of case with care team including physician, nursing, correctional casework specialist, and therapists. More than 50 % of time was spent on patient/family counseling or coordination ofcare. Plan: I completed a substantive portion of this encounter, the medical decision makingportion of this note in its entirety, including Allied health note review, nursing note review, residential sales consultant note review,discussion with nursing and case management, and more than 50% of my time was spent on counseling and coordination of care, time spent 70 minutes Patient was personally seen by me, Dr. Medrano, on the day of encounter, within 24 hours of rehab admission, reviewed the history and the relevant portions of the chart, including current orders, allied health and residential sales consultant notes, labs/imaging and performed smyth elements of exam and I formulatedthe planof care and facilitated the medical decision making. Documented By: Teena Victoria APRN 05/04/23 1 122 Signed By: <Electronically signed by AMADA Victoria> 05/04/23 1209 <Electronically signed by Fredi Medrano MD> 05/05/23 1001 [facility] Work Phone: 1([phone]) 835-811610-23-2023 Progress note Author Ashwini Conrad [facility] May 03, 2023 12:02pmNote Date/TimeOct2022 11:[address] [address] Orthopedic Progress Note Signed Patient: Manolo Roche MR#: [id number] : 1935 Acct:[id number] Age/Sex: 88 / M Adm Date: 3 Loc: 4N Room: [address] [place] [address] Type: ADM IN Attending Dr: Humberto Diaz [...] Code(s): I25.10 - Atherosclerotic heart disease of [place] coronary artery without angina pectoris Status: Acute [...] signed by Ashwini Conrad MD> 05/03/23 1202 [facility] Work Phone: 1(892) 668-235710-22-2023 Progress note Author Sushant Cordon [facility] May 02, 2023 2:35pmNote Date/TimeOct2022 2:35[place] [address] Hospitalist Progress Note Signed Patient: Manolo Roche MR#: [id number] : 1935 Acct:[id number] Age/Sex: 88 / M Adm Date: 3 Loc: N Room: [address] [place] [address] Type: ADM IN Attending Dr: Sushant Cordon [...] mg 04/28/23 17:19 Bisacodyl 10 Mg Supp.Rect CA 04/27/24 17:18 DAILY PRN Constipation Calcium Carbonate [...] Units/3 Ml Insuln.Pen SUBCUT 05/01/24 16:59 TID.WITH.MEALS [facility] Protocol Insulin Glargine 7 units 05/01/23 [...] additional questions. Documented By: Sushant Cordon DO 9191 Signed By: <Electronically signed by Sushant Cordon DO> 05/02/23 1435 [facility] Work Phone: 1(874) 716-625210-22-2023 Progress note Author Ashwini Conrad [facility] May 02, 2023 2:12pmNote Date/TimeOctober 2022 2:12[place] [address] Orthopedic Progress Note Signed Patient: Manolo Roche MR#: [id number] : 1935 Acct:[id number] Age/Sex: 88 / M Adm Date: 3 Loc: 4N Room: [address] [place] [address] Type: ADM IN Attending Dr: Sushant Cordno DO Copies to: ~ Date of Service: [...] Code(s): I25.10 - Atherosclerotic heart disease of [place] coronary artery without angina pectoris Status: Acute [...] signed by Ashwini Conrad MD> 05/02/23 1412 [facility] Work Phone: [phone] 272-133910-22-2023 Progress note Author Harsh Martines [facility] May 02, 2023 10:49amNote Date/TimeOct2022 10:49amRoger [place] [id number] Cardiology Progress Note Signed Patient: Manolo Roche MR#: [id number] : 1935 Acct:[id number] Age/Sex: 88 / M Adm Date: 3 Loc: 4N Room: [id number] Type: ADM IN Attending Dr: Sushant Cordon [...] is to be determined by her primary glue mill operator and Dr. Davis Exam Physical Exam [...] Code(s): I25.10 - Atherosclerotic heart disease of [place] coronary artery without angina pectoris Status: Acute [...] coronary intervention Documented By: Harsh Martines MD, [facility] 3 1047 Signed By: <Electronically signed by MD JOAO Martines> 05/02/23 1049 [facility] Work Phone: 1([phone]) 929-179110-21-2023 Progress note Author Sushant Cordon [facility] May 01, 2023 3:13pmNote Date/TimeOct2022 3:09[place] [address] Hospitalist Progress Note Signed Patient: Manolo Roche MR#: [id number] : 1935 Acct:[id number] Age/Sex: 88 / M Adm Date: 3 Loc: 4N Room: [address] [place] [address] Type: ADM IN Attending Dr: Sushant Cordon [...] mg 04/28/23 17:19 Bisacodyl 10 Mg Supp.Rect CA 04/27/24 17:18 DAILY PRN Constipation Calcium Carbonate [...] Insuln.Pen SUBCUT 04/27/24 21:59 Not Given TID.WM.HS [facility] Protocol Insulin Glargine 7 units 05/01/23 [...] signed by Sushant Cordon DO> 05/01/23 1513 [facility] Work Phone: 1(288) 108-511110-21-2023 Progress note Author Harsh Martines [facility] May 01, 2023 12:24pmNote Date/TimeOct2022 12:21[place] [address] Cardiology Progress Note Signed Patient: Manolo Roche MR#: [id number] : 1935 Acct:[id number] Age/Sex: 88 / M Adm Date: 3 Loc: 4N Room: [id number] Type: ADM IN Attending Dr: Sushant Cordon [...] Code(s): I25.10 - Atherosclerotic heart disease of [place] coronary artery without angina pectoris Status: Acute [...] coronary intervention Documented By: Harsh Martines MD, [facility] 3 1220 Signed By: <Electronically signed by MD JOAO Martines> 05/01/23 1224 [facility] Work Phone: 1(355) 204-468710-21-2023 Progress note Author Ashwini Conrad [facility] May 01, 2023 11:31amNote Date/TimeOctober 2022 11:31[place] [address] Orthopedic Progress Note Signed Patient: Manolo Roche MR#: [id number] : 1935 Acct:[id number] Age/Sex: 88 / M Adm Date: 3 Loc: 4N Room: [address] [place] [address] Type: ADM IN Attending Dr: Sushant Cordon [...] Code(s): I25.10 - Atherosclerotic heart disease of [place] coronary artery without angina pectoris Status: Acute [...] signed by Ashwini Conrad MD> 05/01/23 1131 [facility] Work Phone: 1(124) 597-447810-20-2023 Progress note Author Sushant Cordon [facility] April 30, 2023 9:13pmNote Date/TimeOct2022 9:13[place] [address] Hospitalist Progress Note Signed Patient: Manolo Roche MR#: [id number] : 1935 Acct:[id number] Age/Sex: 88 / M Adm Date: 3 Loc: 4N Room: 3U9164-8 Type: ADM IN Attending Dr: Sushant Cordon [...] mg 04/28/23 17:19 Bisacodyl 10 Mg Supp.Rect CA 04/27/24 17:18 DAILY PRN Constipation Calcium Carbonate [...] Mg/0.4 Ml Syringe SUBCUT 04/30/24 09:59 DAILY@1000 [facility] Glucose 0 gm 04/28/23 17:14 04/30/23 08:42 [...] Lactated Ringers IV 04/29/24 16:44 Not Given .[id number] [facility] Cefazolin Sodium 1 gm in 50 mls [...] <Electronically signed by Sushant Cordon DO> 04/30/232112 [facility] Work Phone: 1([phone]) 684-139910-20-2023 Hospital Discharge instructions Additional Instructions Rehab to [...] high armed straight-backed chair. -May use toilet scorekeeper on commode. -Continue to use walker or [...] OTHER -Any problems- Call the office at [phone] or return to Emergency Room. -If you are having excessive or persistent pain, swelling, fever (oral temp >101), yellow-green foul smelling drainage or bleeding from incision, excessive redness of incision, nausea, vomiting, or any other problems, you should first call your surgeon at [phone] for advice. If you are unable to contact your surgeon, seek help from a hospital emergency room. FOLLOW UP -Call my office the first business day after discharge and ask for assistance with post-discharge plans, and appointments.[facility] Work Phone: 1(643) 293-248710-20-2023 Progress note Author Anat Perez [facility] April 30, 2023 10:32amNote Date/TimeOct2022 10:32am[address] [address] Cardiology Progress Note Signed Patient: Manolo Roche MR#: [id number] : 1935 Acct:[id number] Age/Sex: 88 / M Adm Date: 3 Loc: 4N Room: 2V4011-0 Type: ADM IN Attending Dr: Sushant Cordon [...] events overnight. Denies chest pain or dyspnea. [facility] scheduledfor this AM (findings as below) Exam [...] 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 - Discussed with cashier receptionist- Dr Davis regarding timing of intervention- given [...] signed by Anat Perez MD> 04/30/23 1032 [facility] Work Phone: 1(785) 819-362910-20-2023 [facility]-2023 Progress note Author Sushant Cordon [facility] April 29, 2023 6:28pmNote Date/TimeOct2022 6:28[place] [address] Hospitalist Progress Note Signed Patient: Manolo Roche MR#: [id number] : 1935 Acct:[id number] Age/Sex: 88 / M Adm Date: 3 Loc: 4N Room: [address] [place] [address] Type: ADM IN Attending Dr: Sushant Cordon [...] mg 04/28/23 17:19 Bisacodyl 10 Mg Supp.Rect CA 04/27/24 17:18 DAILY PRN Constipation Calcium Carbonate [...] Dextrose-Lactated Ringers IV 04/27/24 17:14 125 mls/hr .[id number] [facility] Administration Lactated Ringer's 1,000 mls @ [...] 1823 Signed By: <Electronically signed by Sushant Codron DO> 04/29/231827 [facility] Work Phone: 1(742) 917-230310-19-2023 Consult note Author Anat Perez [facility] April 29, 2023 5:34pmNote Date/TimeOct2022 5:07[place] [address] Cardiology Consult Note Signed Patient: Manolo Roche MR#: [id number] : 1935 Acct:[id number] Age/Sex: 88 / M Adm Date: 3 Loc: 4N Room: [address] [place] [address] Type: ADM IN Attending Dr: Sushant Cordon [...] negative unless noted below or in HPI [facility] Medical History (Updated 04/29/23 @ [...] 18 unit subcutHS 04/28/23 [History Confirmed 04/28/23] dqbqdr-ngfqxipn-ergbogc 24,000-76,000-120,000 unit capsule,delayed rel (Creon) 2cap PO [...] ,000 ml @ 125 mls/hr IV .Q8H [facility] Rx#:[id number] Oral 0 / 0 0 / 0 [...] disease) prior to surgery. -Will plan for [facility] tomorrow for further evaluation/risk stratification. NPO past midnight. Documented By: Anat Perez MD 04/29/231703 Signed By: <Electronically signed by Anat Perez MD> 04/29/23 173 [facility] Work Phone: 1(818) 922-757310-18-2023 Consult note Author Ashwini Conrad [facility] April 28, 2023 6:47pmNote Date/TimeOct2022 6:43pmRoger [place] [id number] Orthopedic Consult Note Signed Patient: Manolo Roche MR#: [id number] : 1935 Acct:[id number] Age/Sex: 88 / M Adm Date: 3 Loc: 4N Room: 5L0541-5 Type: ADM IN Attending Dr: Sushant Cordon [...] negative unless noted below or in HPI [facility] [facility] History (Updated 04/28/23 @ [...] 18 unit subcutHS 04/28/23 [History Confirmed 04/28/23] lglpae-znjewbsb-ubtodpn 24,000-76,000-120,000 unit capsule,delayed rel (Creon) 2cap PO [...] Appearance Clear, Urine pH 6.5, Ur Specific [place] 1.009, Urine Protein Negative, Urine Glucose (UA) Normal, UrineKetones Negative, Urine Occult Blood Negative, Urine Nitrite Negative, Urine Bilirubin Negative, Urine Urobilinogen Normal, Ur Leukocyte Esterase Negative 04/28/23 13:20: B-Natriuretic Peptide 665.0 H 04/28/23 13:20: Troponin I High Sens 35.5 H 04/28/23 13:20: PHA Creatinine Clear 60.38, Sodium 136, Potassium 4.9, Chloride 101, Carbon Qszazqp91.4, Anion Gap 9.5, BUN 15, Creatinine 0.71, [...] normal. 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 This was done [...] had what sounds like an EGD in [place] about 15 months ago with what sounds like some gastritis. Otherwise his past medical history seems to include prostate hypertrophy. Social history: He does smoke a cigar daily after dinner. In the past he smoked0.25 of a pack per day of cigarettes. He does drink wine daily with dinner. Heis mainly retired from [employer] here in [place]. He has continued to do other jobsever since his nursing home. Family history: A sister of an unspecified cancer. Another sibling ofwhat sounds like acute leukemia. Review of Systems Review of Systems Review of systems: 10 systems are reviewed and are negative except as mentioned elsewhere in the documentation. [facility] Medical History (Updated 04/28/23 @ [...] 18 unit subcutHS 04/28/23 [History Confirmed 04/28/23] oyumov-aimldzyj-xorzdol 24,000-76,000-120,000 unit capsule,delayed rel (Creon) 2cap PO [...] pH 6.5 (5.0-9.0) 04/28/23 15:00 Ur Specific [place] 1.009 (1.001-1.030) 04/28/23 15:00 Urine Protein Negative [...] did order an echocardiogram but the echocardiogram library media technician has likely gone home for the [...] signed by Sushant Cordon DO> 04/28/23 1740 [facility] Work Phone: 1(964) 932-247410-01-2023 Chief complaint+Reason for visit Narrative * Chief [...] pylori ulcer Helicobacter pylori (H. pylori) Hypertension [id number] Stomach ulcer [facility] Work Phone: 1(543) 117-802706-29-2022 History of Present illness Narrative* Courtney Singh - 01/07/2022 12:25 PM EDT CLINICAL PHARMACY NOTE: MEDS TO BEDS Total # of Prescriptions Filled: 3 The following medications were delivered to the patient: Sucralfate susp Amlodipine Pantoprazole Additional Documentation: Pharmacy dispensed all we had of the Sucralfate susp- will transfer the rest to the [facility] in [place], [place] $8.61 collected via [employer] et[facility] * Jose Roberto Peñaloza MD - 01/06/2022 [...] 01/03/2022 3:25 PM EDT Occupational Therapy Facility/Department: [address] Occupational Therapy Initial Assessment Name: Manolo Roche : 1935 Date of Service: 01/03/2022 Chief Complaint Patient presents with Abdominal Pain ulcer Discharge Recommendations: Patient would benefit from continued therapy after discharge OT Equipment Recommendations Equipment Needed: Yes Mobility Devices: ADL Assistive Devices ADL Assistive Devices: 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 Works on [employer] sometimes now debo wants. [employer]. Use to work for [employer]. Leisure & Hobbies: [employer] Additional Comments: 3-4 weeks post open heart [...] 01/03/2022 12:40 PM EDT Physical Therapy Facility/Department: [address] [place] Physical Therapy Initial Assessment Name: [...] Ambulation Assistance: Independent Transfer Assistance: Independent Active Lace Cutter: Yes Mode of Transportation: SUV Occupation: Retired Type of Occupation: Reports he has retired 4-5 times. 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 Pt did not have any belongings transferred with him from the OR. [facility] Work Phone: chief complaint+Reason for visit Narrative* Chief Complaint bp check I25.10 E61.1,K92.2 2 weeks bp 6 weeks evaluation for ICD evaluation for ICD HFC BP WITH ORTHO CardiomyopathyReason for VisitIron deficiency Ischemic cardiomyopathy Ischemic cardiomyopathy Ischemic cardiomyopathy Acute GI bleeding Ischemic cardiomyopathy [id number] Sinus bradycardia H pylori ulcer Iron deficiency Ischemic cardiomyopathy [id number] Ischemic cardiomyopathy [facility] Work Phone: Consult note Author Tru Yap [facility] May 03, 2023 3:17pmNote Date/TimeOct2022 2:59pm[place] [address] Physiatry (Rehab) Consult Note Signed Patient: Manolo Roche MR#: [id number] : 1935 Acct:[id number] Age/Sex: 88 / M Adm Date: 3 Loc: 4N Room: 8V5321-7 Type: ADM IN Attending Dr: Humberto Diaz [...] negative unless noted below or in HPI [facility] Medical History BPH (benign prostatic [...] 18 unit subcutHS 04/28/23 [History Confirmed 04/28/23] xdcwdk-hzclrery-pcwsktd 24,000-76,000-120,000 unit capsule,delayed rel (Creon) 2cap PO [...] bisacodyl 10 mg rectal suppository 10 mg CA DAILY PRN Constipation #0 ea 05/03/23 [Rx] [...] Code(s): I25.10 - Atherosclerotic heart disease of [place] coronary artery without angina pectoris Status: Acute [...] at least 3 times weekly encounters with tar heater operator for medical management and for plan of care review / changes. Plan: I completed a substantive portion of this encounter, the medical decision making portion of this note in its entirety, including Allied health note review, nursing note review, residential sales consultant note review, discussion with nursing and case management, and more than 50% of my time was spent on counseling and coordination of care, time spent 65 minutes Patient was personally seen by me, Dr. Yap, on the day of encounter, reviewed the history and therelevant portions of the chart, including current orders, allied health and residential sales consultant notes, labs/imaging and performed smyth elements of exam and I formulated the plan of care and facilitated the medical decision making. Documented By: Tru Yap MD 05/03/23 1454 Signed By: <Electronically signed by Tru Yap MD> 05/03/23 6322 [facility] Work Phone: Consult note Author Chuck Velasco [facility] Date/TimeJanuary 2024 4:52pm[place] [address] Cardiology Consult Note Signed Patient: Manolo Roche MR#: [id number] : 1935 Acct:[id number] Age/Sex: 89 / M Adm Date: 5 Loc: N Room: [address] [place] [address] Type: ADM INOo Attending Dr: Lisa Hidalgo [...] negative unless noted below or in HPI [facility] Medical History Type 1 diabetes mellitus CAD (coronary artery disease) Former smoker BPH (benign prostatic hyperplasia) Urinary frequency Cardiomyopathy wearing external defib Coronary artery disease involving [place] coronary artery of [place] heart withoutangina pectoris GI bleeding Dupuytren's contracture [...] days #30 tabs 05/07/23 [Rx Confirmed 07/16/24] spkadt-uouirsgu-cihqpmo 24,000-76,000-120,000 unit capsule,delayed rel (Creon) 2cap PO [...] tab PO DAILY 10/26/23 [History Confirmed 07/16/24] oombba-oagvdjaw-dqinxqm 24,000-76,000-120,000 unit capsule,delayed rel (Creon) 1cap PO [...] Code(s): I25.10 - Atherosclerotic heart disease of [place] coronary artery without angina pectoris (4) S/P [...] H/o PUD, BPH, Anxiety, depression. Current smoker. [facility] 04/30/23 - Two-vessel coronary artery disease- 100% prox LAD occlusion; 80% D1; LCx has 50% prox stenosis with 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 Echo 04/28/23 - EF 40-45%, mild LVH, trace MR and TR. [facility] 07/16/22 - Successful PCI ostial/proximal LAD-diagonal branch; true REAL ESTATE REPRESENTATIVE proximal/mid LAD (attempted wiring with balloon). [facility] EF 30-35% ECHO 03/09/2024: ECHO which [...] call with any questions. Follow up with [facility] Cardiology as scheduled. Documented By: Chuck Velasco MD 01/03 1637 Signed By: <Electronically signed by Chuck Velasco MD> 07/17/24 1652 [facility] Work Phone: Discharge summary Author Humberto Diaz [facility] May 03, 2023 2:54pmNote Date/TimeOct2022 2:39pm[place] [address] Discharge Summary Signed Patient: Manolo Roche MR#: [id number] : 1935 Acct:[id number] Age/Sex: 88 / M Adm Date: 3 Loc: 4N Room: 1M9857-[address]: Humberto Diaz MD Copies to: [...] 08:45 Actual Procedures p CL [facility] iVcente Perez MD Operation Date: 04/30/23 15:30 Actual [...] Discharge Plan Discharge Plan Patient Disposition: Rehab [facility] Diet: Diabetic Additional Instructions: [...] high armed straight-backed chair. -May use toilet scorekeeper on commode. -Continue to use walker or [...] OTHER -Any problems- Call the office at [phone] or return to Emergency Room. -If you are having excessive or persistent pain, swelling, fever (oral temp >101), yellow-green foul smelling drainage or bleeding from incision, excessive redness of incision, nausea, vomiting, or any other problems, you should first call your surgeon at [phone] for advice. If you are unable to [...] 0RF bisacodyl 10 mg Suppository 10 mg CA DAILY PRN (Reason: Constipation) Qty: 0 0RF [...] (call at discharge from Rehab to see Saloonkeeper for future ANGIOPLASTY PROCEDURE) Marie Tejeda DO [...] <Electronically signed by Humberto Diaz MD> 05/03/23 7563 [facility] Work Phone: Discharge summaryRoger Ville [id number] Discharge Summary Signed Patient: Manolo Roche MR#: [id number] : 1935 Acct:[id number] Age/Sex: 89 / M Adm Date: 5 Loc: 4N Room: 9T1415-[address]: Lisa Hidalgo MD Copies to: [...] 40-45%, mild LVH, trace MR and TR. [facility] 07/16/22 - Successful PCI ostial/proximal LAD-diagonal branch; true REAL ESTATE REPRESENTATIVE proximal/mid LAD (attempted wiring with balloon). [facility]: EF 30-35% ECHO 03/09/2024: ECHO which [...] call with any questions. Follow up with [facility] Cardiology as scheduled. Patient was cleared by [...] Lisa Hidalgo MD 07/18/241899 Signed By: 07/18/241901 [facility] Lisa Hidalgo [facility] Date/TimeJanuary 2024 7:02pm[place] [address] Discharge Summary Signed Patient: Manolo Roche MR#: [id number] : 1935 Acct:[id number] Age/Sex: 89 / M Adm Date: 5 Loc: 4N Room: 5X9737-[address]: Lisa Hidalgo MD Copies to: [...] homeas disposition. Cardiology consulted, recommended to follow: [facility] 04/30/23 - Two-vessel coronary artery disease- 100% prox LAD occlusion; 80% D1; LCx has 50% prox stenosis with 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 Echo 04/28/23 - EF 40-45%, mild LVH, trace MR and TR. [facility] 07/16/22 - Successful PCI ostial/proximal LAD-diagonal branch; true REAL ESTATE REPRESENTATIVE proximal/mid LAD (attempted wiring with balloon). [facility] at [facility]: EF 30-35% ECHO 03/09/2024: ECHO which [...] call with any questions. Follow up with [facility] Cardiology as scheduled. Patient was cleared by [...] <Electronically signed by Lisa Hidalgo MD> 07/18/241901 [facility] Work Phone: Evaluation + Plan note No data available for this section [facility] Evaluation + Plan note Future Appointments Appointment Date:05/22/2025 01:00:00 PM Scheduled Provider: Location:[facility] Appointment Type:Urology CALL PAT FT Appointment Date:05/24/2025 10:00:00 AM Scheduled Provider: Location:[facility] Appointment Type:Urology FT Appointment Date:05/24/2025 11:00:00 AM Scheduled Provider: Location:[facility] Appointment Type:Urology FT [facility] Evaluation note* Diagnosis Perforated viscus- Primary Other [...] uncontrolled, or unspecified documented in this encounter [facility] Work Phone: evaluation note* Diagnosis Onset Date Resolution Status Abnormal EKG acuteClosed intertrochanteric fracture of right hipacuteElevated troponinacute [facility] Work Phone: Evaluation note* Diagnosis Onset Date Resolution Status Abnormal EKG acuteClosed intertrochanteric fracture of right hipacuteDiabetesacuteElevated troponinacuteImpaired mobility and activities of daily livingacuteMild left ventricular systolic dysfunction (LVSD)acuteNonsustained monomorphic ventricular tachycardiaacutePostoperative pain, acute, hipacuteTwo-vessel coronary artery diseaseacute [facility] Work Phone: Evaluation note* Diagnosis Onset Date [...] malnutrition, mildacuteTwo-vessel coronary artery diseaseacuteUncontrolled diabetes mellitusacute [facility] Work Phone: Evaluation note* Diagnosis NSTEMI (non-ST elevated myocardial infarction) ([facility])- Primary Acute myocardial infarction, subendocardial infarction, episode of care unspecified Abnormal stress test Other nonspecific abnormal cardiovascular system function study ASHD (arteriosclerotic heart disease) Coronary atherosclerosis of unspecified type of vessel, [place] or graft Essential hypertension Unspecified essential hypertension Diabetes mellitus type II, non insulin dependent ([facility]) Type II or unspecified type diabetes mellitus without mention of complication, not stated as uncontrolled Closed fracture of right hip, initial encounter ([facility]) documented in this encounter [facility] Work Phone: Evaluation noteNo InformationNort tic Other Evaluation note* Diagnosis Onset Date Resolution Status Diabetes acuteCAD (coronary artery disease)acuteDiabetesacute [facility] Work Phone: Evaluation note* Diagnosis Cardiomyopathy, ischemic- Primary Other specified forms of chronic ischemic heart disease ASHD (arteriosclerotic heart disease) Coronary atherosclerosis of unspecified type of vessel, [place] or graft BMI 20.0-20.9, adult Orthopnea documented in this encounter [facility] Work Phone: Evaluation noteNo assessment information available [facility] Work Phone: Evaluation note* Diagnosis Onset Date Resolution Status Fracture of C5 vertebra, closed acuteVertebral fracture, closedacuteBarretts esophagusacuteH pylori ulceracute [facility] Work Phone: Evaluation note* Diagnosis Onset Date Resolution Status Acute electrocardiogram changes acuteAcute GI bleedingacuteElevated troponinacuteGI bleedingacute [facility] Work Phone: Evaluation note* Diagnosis Onset Date Resolution Status Acute electrocardiogram changes acuteAcute GI bleedingacuteCAD (coronary artery disease)[id number] acuteElevated troponinacuteGI bleedingacuteHistory of pancreatectomyacute HypertensionacuteS/P PTCA (percutaneous transluminal coronary angioplasty)acute Type 1 diabetes mellitusacute [facility] Work Phone: Evaluation note* Diagnosis Onset Date Resolution Status Acute electrocardiogram changes resolvedAcute GI bleedingresolvedElevated troponinresolvedIschemic cardiomyopathyacuteAcute GI bleedingresolved [facility] Work Phone: Evaluation note* Diagnosis Onset Date Resolution Status Acute electrocardiogram changes resolvedAcute GI bleedingresolvedElevated troponinresolvedIschemic cardiomyopathyacuteAcute GI bleedingresolvedIron deficiencyacuteIschemic cardiomyopathyacute [facility] Work Phone: Evaluation note* Diagnosis Onset Date Resolution Status Acute electrocardiogram changes resolvedAcute GI bleedingresolvedElevated troponinresolvedIschemic cardiomyopathyacuteAcute GI bleedingresolvedIron deficiencyacuteIschemic cardiomyopathyacuteIschemic cardiomyopathyacuteIschemic cardiomyopathyacuteAcute GI bleedingresolved [facility] Work Phone: Evaluation note* Diagnosis 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 ([facility]/HCC) Pancreatic insufficiency ([facility]/HCC)- Primary Other specified disease of pancreas Coronary arteriosclerosis ([facility]/HCC) Coronary atherosclerosis of unspecified type of vessel, [place] or graft 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 ([facility]/HCC) 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 ([facility]/HCC) H pylori ulcer Chronic ulcer of unspecified site documented in this encounter [facility] Healthcare[facility]* Diagnosis 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 ([facility]/HCC) Bronchitis- Primary Bronchitis, not specified as acute or chronic 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 (CMS/HCC) Generalized anxiety disorder ([facility]) Generalized anxiety disorder Need for immunization against influenza Need for prophylactic vaccination and inoculation against influenza 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 H pylori ulcer Chronic ulcer of unspecified site 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 ([facility]/HCC) Insulin pump in place Insulin pump status Pancreatic insufficiency ([facility]/HCC) Other specified disease of pancreas Duodenal ulcer Medicare annual wellness visit, subsequent ACP (advance care planning) Other specified counseling Bradycardia Other specified cardiac dysrhythmias Orthostatic hypotension Acute on chronic systolic congestive heart failure ([facility]/HCC) documented in this encounter [facility] HealthcareEvaluation note* Diagnosis 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 ([facility]) ICD (implantable cardioverter-defibrillator) in place- Primary Hospital discharge follow-up Other follow-up examination 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, with long-term current use of insulin(HCC) [facility] Diagnosis 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, with long-term current use of insulin(HCC)- Primary 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) Insulin pump status Insulin pump titration Fitting and adjustment of insulin pump [facility] Diagnosis 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, with long-term current use of insulin(HCC)- Primary [facility] Diagnosis 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, with long-term current use of insulin(HCC) [facility] Diagnosis 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, with long-term current use of insulin(HCC)- Primary [facility]* Diagnosis Onset Date Resolution Status Admit Date Ischemic cardiomyopathy acuteSept2024 9:54amType 1 diabetes mellitusacuteSept2024 9:54amAcute GI bleedingresolvedSept2024 9:54amCoronary artery disease involving [place] coronary artery of [place] heart wiinactiveSept2024 9:54amHypertensioninactiveSept2024 9:54amS/P PTCA (percutaneous transluminal coronary angioplasty)inactiveSept2024 9:54am [facility] Work Phone: Evaluation note* Diagnosis 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 Type 1 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 (HCC) Need for follow-up care after discharge- Primary Generalized anxiety disorder Pancreatic insufficiency (HCC) Other specified disease of pancreas Mixed hyperlipidemia 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 HealthcareHistory and physical note Author Indra Guillory [facility]Note Date/TimeJanuary 2024 1:[place] [address] Hospitalist H&P Signed Patient: Manolo Roche MR#: [id number] : 1935 Acct:[id number] Age/Sex: 89 / M Adm Date: 5 Loc: Room: [address] [place] [address] Type: ADM INOo Attending Dr: Inrda Guillory MD Copies to: MD Marie Keller DO~ [facility] DATE OF EXAMINATION: 07/17/24 CHIEF COMPLAINT: Chest [...] that which is noted above in HPI [facility] Medical History Type 1 diabetes mellitus CAD (coronary artery disease) Former smoker BPH (benign prostatic hyperplasia) Urinary frequency Cardiomyopathy wearing external defib Coronary artery disease involving [place] coronary artery of [place] heart withoutangina pectoris GI bleeding Dupuytren's contracture [...] days #30 tabs 05/07/23 [Rx Confirmed 07/16/24] qbrcow-stvmphhi-iqrywzj 24,000-76,000-120,000 unit capsule,delayed rel (Creon) 2cap PO [...] tab PO DAILY 10/26/23 [History Confirmed 07/16/24] aehwij-ligtvwvu-jivhcqc 24,000-76,000-120,000 unit capsule,delayed rel (Creon) 1cap PO [...] 2 Documented By: Indra Guillory MD 5 [id number] Signed By: <Electronically signed by Indra Guillory MD> 07/17/24 0148 [facility] Work Phone: History general Narrative - Reported* Type Description Date Medical History stage 1 diabetes Surgical Historypancreas and spleen removalSurgical Historyback surgerySurgical HistorytonsilectomySurgical HistoryHIP TFN [id number] [employer] Other Hospital Discharge instructions* Instructions* Viki Donovan, [...] scheduled appointment, please call the office at [phone]. Call Your Doctor If Any of the [...] through Care Everywhere. * Surgical [facility] (Malian) [facility] Work Phone: Hospital Discharge instructions Additional Instructions [...] -Dietary supplement: Glucerna 1 container twice a day.[facility] Work Phone: Hospital Discharge instructions Additional Instructions [...] doctor or pharmacist, without first calling the glue mill operator who implanted the stent. If you [...] weight lifting, stair steppers, etc. until the glue mill operator approves these activities. Check with the glue mill operator on your first follow-up visit. CALL YOUR PHYSICIAN at [phone]: -If bleeding should occur from the catheter insertion site- apply pressure to the site then immediately call us. -Report any fever, redness, drainage, increased swelling, or firmness at the catheter insertion site. Some bruising or slight swelling may be present at the time of discharge. -Should arm or leg become cold, numb, white, or blue, contact the glue mill operator immediately. -IF you should experience episodes [...] is recommended. Please call Central Scheduling at [phone] to schedule your appointment.] The attending glue mill operator or [facility] nurse clinician should provide you with specific instructions regarding activity, diet, medications, and further follow up for you. Follow the medication instructions provided on your discharge. If the dosages and instructions on this sheet differ from the dosage and instructions on the bottle, follow the instructions on the bottle. [facility] is not responsible for incorrect prescription information provided by the patient during their visit. Do not stop your medications without consulting your health care provider. Please take the list with you to your next doctor's appointment.[facility] Work Phone: Hospital Discharge instructionsAmbulatory Orders* Referral to Cardiac Rehab Location: None Selected [facility] Work Phone: Hospital Discharge instructions No data available for this section [facility] Progress note Author Anat Perez [facility] February 08, 2024 2:07pmNote Date/TimeJuly 2023 2:04pm[address] [address] Cardiology Progress Note Signed Patient: Manolo Roche MR#: [id number] : 1935 Acct:[id number] Age/Sex: 88 / M Adm Date: 4 Loc: Room: [address] [place] [address] Type: ADM IN Attending Dr: Warren Gross [...] blood chemistry (3) Coronary artery disease involving [place] coronary artery of [place] heart without angina pectoris: Code(s): I25.10 - Atherosclerotic heart disease of [place] coronary artery without angina pectoris (4) S/P PTCA (percutaneous transluminal coronary angioplasty): Code(s): Z98.61 - Coronary angioplasty status Plan # Acute recurrent GI Bleed in setting of known PUD (recent EGD on 09/01/23 found a 2 cm ulcer with anonbleeding visible vessel at the bulb of the duodenum). # CAD s/p PCI in Jul 2023. # Ischemic Cardiomyopathy s/p LifeVest ordered in [place] - Well compensated. # Non-ACS myocardial injury - Is due to demand-supply mismatch 2/2 acute anemia. 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 Current smoker. [facility] 04/30/23 - Two-vessel coronary artery disease- 100% prox LAD occlusion; 80% D1; LCx has 50% prox stenosis with 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 Echo 04/28/24 - EF 40-45%, mild LVH, trace MR and TR. [facility] 07/16/22 - Successful PCI ostial/proximal LAD-diagonal branch; true REAL ESTATE REPRESENTATIVE proximal/mid LAD (attempted wiring with balloon). EKG 09/07/23 - sinus peace 56 bpm, anterolateral TWI. EKG 09/08/23 - sinus peace 58 bpm, anterolateral and inferior TWI. - Pt is currently 6 months out from PCI. Plavix stopped. Continue ASA 81mg dailyand monitor Hb - Reviewed records from recent hospitalization at [facility] in [place]. He was hospitalized for NSTEMI and PNA. [...] PO 20mg daily. - Follow up with [facility] cardiology as scheduled on 03/02/24. Will plan on repeat ECHO 3 months after being on maximally tolerated GDMT to determine need for ICD. - Cardiology will sign off. Please call with questions. Documented By: Anat Perez MD 02/08/24 [id number] Signed By: <Electronically signed by Anat Perez MD> 02/08/24 2750 [facility] Work Phone: Progress note Author Chuck Velasco [facility] Date/TimeNovember 2023 10:41am [place] [address] Cardiology Progress Note Signed Patient: Manolo Roche MR#: [id number] : 1935 Acct:[id number] Age/Sex: 89 / M Adm Date: 4 Loc: Room: [address] [place] [address] Type: ADM IN Attending Dr: Abdulaziz Root [...] signed by Chuck Velasco MD> 05/25/24 1041 [facility] Work Phone: Progress note No data available for this section [facility] Reason for referral (narrative)* Consultation (Routine) - AuthorizedSpecialtyDiagnoses / ProceduresReferred By ContactReferred To ContactCardiology Diagnoses Abnormal stress test ASHD (arteriosclerotic heart disease) NSTEMI (non-ST elevated myocardial infarction) ([facility]) Procedures Follow Up In Cardiology Govind Davis, [address] [facility] [address] [place] [phone] Govind Davis, DO [address] [facility] [address] [place] [phone] Referral IDStatusReasonStart DateExpiration DateVisits RequestedVisits [id number]/14/202311/ * Cardiovascular (Routine) - Pending ReviewSpecialtyDiagnoses / Procedures Referred By ContactReferred To Contact Diagnoses Abnormal stress test ASHD (arteriosclerotic heart disease) Procedures ECG 12 Lead Govind Davis, [address] [facility] [address] [place] [id number] Referral IDStatusReasonStmahanoy plane DateExpiration DateVisits RequestedVisits [id number] [facility] Work Phone: Rehyqs for referral (narrative)No reason for referral information availableTrinity Health System [facility] Campus Work Phone: Advance Directives Code StatusDate ActivatedDate InactivatedCommentsFull Code01/02/2022 10:32 PMFull Code01/02/2022 8:11 PM01/02/2022 10:32 PMNameRelationshipHealthcare Agent RelationshipCommunicationRose Yodit SbernaSpousePrimary Decision Maker* Saúl SbernaChildSecondary Decision Maker* Advance Directive Response Recorded Date/ Time Advance Directives No March 5:30pm Advance Directive Response Recorded Date/ Time Advance Directives No March 4:30pm Date ActivatedDate EarvyfnldavLoutxkjg46/16/2024 7:43 AMDate ActivatedDate BifkmjzzwxiNhpfcyzg22/16/2024 7:43 AM Summary Purpose Family History Relationship [...] Acute GI bleeding CAD (coronary artery disease) [id number] Elevated troponin GI bleeding History of pancreatectomy Hypertension S/P PTCA (percutaneous transluminal coronary angioplasty) Type 1 diabetes mellitus Chief Complaint Dizziness Dizziness Dizziness K92.2Reason for VisitAcute electrocardiogram changes Acute GI bleeding CAD (coronary artery disease) [id number] Elevated troponin GI bleeding History of pancreatectomy Hypertension S/P PTCA (percutaneous transluminal coronary angioplasty) Type 1 diabetes mellitus Chief Complaint Dizziness Dizziness Dizziness K92.2 K92.2Reason for VisitAcute electrocardiogram changes Acute GI bleeding CAD (coronary artery disease) [id number] Elevated troponin GI bleeding History of pancreatectomy Hypertension S/P PTCA (percutaneous transluminal coronary angioplasty) Type 1 diabetes mellitus Chief Complaint Dizziness Dizziness Dizziness K92.2 K92.2 [facility] 02/06Reason for VisitAcute electrocardiogram changes Acute GI bleeding CAD (coronary artery disease) [id number] Elevated troponin GI bleeding History of pancreatectomy Hypertension S/P PTCA (percutaneous transluminal coronary angioplasty) Type 1 diabetes mellitus Chief Complaint Dizziness Dizziness Dizziness K92.2 K92.2 [facility] 02/06 k92.2 d50.9 r00.1Reason for VisitAcute electrocardiogram changes Acute GI bleeding Elevated troponin Ischemic cardiomyopathy Acute GI bleeding Chief Complaint Dizziness Dizziness Dizziness K92.2 K92.2 [facility] 02/06 r00.1 k92.2 d50.9 r00.1 bp checkReason for VisitAcute electrocardiogram changes Acute GI bleeding Elevated troponin Ischemic cardiomyopathy Acute GI bleeding Chief Complaint Dizziness Dizziness Dizziness K92.2 K92.2 [facility] 02/06 r00.1 k92.2 d50.9 r00.1 bp check E61.1,K92.2 I25.10Reason for VisitAcute electrocardiogram changes Acute GI bleeding Elevated troponin Ischemic cardiomyopathy Acute GI bleeding Iron deficiency Ischemic cardiomyopathy Chief Complaint Dizziness Dizziness Dizziness K92.2 K92.2 [facility] 02/06 r00.1 k92.2 d50.9 r00.1 bp check I25.10 E61.1,K92.2Reason for VisitAcute electrocardiogram changes Acute GI bleeding Elevated troponin Ischemic cardiomyopathy Acute GI bleeding Iron deficiency Ischemic cardiomyopathy Chief Complaint Dizziness Dizziness Dizziness K92.2 K92.2 [facility] 02/06 r00.1 k92.2 d50.9 r00.1 bp check I25.10 E61.1,K92.2 2 weeks bpReason for VisitAcute electrocardiogram changes Acute GI bleeding Elevated troponin Ischemic cardiomyopathy Acute GI bleeding Iron deficiency Ischemic cardiomyopathy Chief Complaint Dizziness Dizziness Dizziness K92.2 K92.2 [facility] 02/06 r00.1 k92.2 d50.9 r00.1 bp check I25.10 E61.1,K92.2 2 weeks bp 6 weeksReason for VisitAcute electrocardiogram changes Acute GI bleeding Elevated troponin Ischemic cardiomyopathy Acute GI bleeding Iron deficiency Ischemic cardiomyopathy Ischemic cardiomyopathy Ischemic cardiomyopathy Acute GI bleeding Chief Complaint Dizziness Dizziness Dizziness K92.2 K92.2 [facility] 02/06 r00.1 k92.2 d50.9 r00.1 bp check I25.10 E61.1,K92.2 2 weeks bp 6 weeks evaluation for ICD evaluation for ICDReason for VisitAcute electrocardiogram changes Acute GI bleeding Elevated troponin Ischemic cardiomyopathy Acute GI bleeding Iron deficiency Ischemic cardiomyopathy Ischemic cardiomyopathy Ischemic cardiomyopathy Acute GI bleeding Chief Complaint Dizziness Dizziness Dizziness K92.2 K92.2 [facility] 02/06 r00.1 k92.2 d50.9 r00.1 bp check I25.10 E61.1,K92.2 2 weeks bp 6 weeks evaluation for ICD evaluation for ICD HFCReason for VisitAcute electrocardiogram changes Acute GI bleeding Elevated troponin Ischemic cardiomyopathy Acute GI bleeding Iron deficiency Ischemic cardiomyopathy Ischemic cardiomyopathy Ischemic cardiomyopathy Acute GI bleeding Chief Complaint Dizziness Dizziness Dizziness K92.2 K92.2 [facility] 02/06 r00.1 k92.2 d50.9 r00.1 bp check I25.10 E61.1,K92.2 2 weeks bp 6 weeks evaluation for ICD evaluation for ICD HFCReason for VisitAcute electrocardiogram changes Acute GI bleeding Elevated troponin Ischemic cardiomyopathy Acute GI bleeding Iron deficiency Ischemic cardiomyopathy Ischemic cardiomyopathy Ischemic cardiomyopathy Acute GI bleeding Ischemic cardiomyopathy [id number] Sinus bradycardia H pylori ulcer Iron deficiency Ischemic cardiomyopathy [id number] Chief Complaint K92.2 K92.2 [facility] 02/06 r00.1 k92.2 d50.9 r00.1 bp check I25.10 E61.1,K92.2 2 weeks bp 6 weeks evaluation for ICD evaluation for ICD HFC BP WITH ORTHOReason for VisitIschemic cardiomyopathy Acute GI bleeding Iron deficiency Ischemic cardiomyopathy Ischemic cardiomyopathy Ischemic cardiomyopathy Acute GI bleeding Ischemic cardiomyopathy [id number] Sinus bradycardia H pylori ulcer Iron deficiency Ischemic cardiomyopathy [id number] Chief Complaint Admit Date bp check February [...] 2024 10:57am Coronary artery disease invo lving [place] coronary artery of [place] heart wi March 27, 2024 10:57am Hypertension [...] 37pm I47.2 Z95.810 August 29, 2024 1:28pm [facility] 07/17August 31, 2024 9:56am Reason for [...] 2024 9:56am Coronary artery disease invo lving [place] coronary artery of [place] heart wi August 31, 2024 9:56am Hypertension August 31, 2024 9:56am S/P PTCA (percutaneous transluminal mounika nary angioplasty) August 31, 2024 9:56am Chief Complaint Admit Date chest pain July 16, 2024 6: 08pm chest pain July 17, 2024 4: 37pm I47.2 Z95.810 August 29, 2024 1:28pm [facility] 07/17August 31, 2024 9:56am 6 weeks [...] 2024 9:56am Coronary artery disease invo lving [place] coronary artery of [place] heart wi August 31, 2024 9:56am Hypertension August 31, 2024 9:56am S/P PTCA (percutaneous transluminal mounika nary angioplasty) August 31, 2024 9:56am Ischemic cardiomyopathy October 13, 2024 9:10am Type 1 diabetes mellitus October 13, 2024 9:10am Acute GI bleeding October 13, 2024 9:10 am Coronary artery disease invo lving [place] coronary artery of [place] heart wi October 13, 2024 9:10am Hypertension [...] 9:10 am Coronary artery disease invo lving [place] coronary artery of [place] heart wi October 13, 2024 9:10am Hypertension [...] 2025 9:54am Coronary artery disease invo lving [place] coronary artery of [place] heart wi March 27, 2025 9:54am Hypertension [...] 2025 9:54am Coronary artery disease invo lving [place] coronary artery of [place] heart wi March 27, 2025 9:54am Hypertension [...] 2025 10:11am Coronary artery disease invo lving [place] coronary artery of [place] heart wi May 09, 2025 10:11am Hypertension May 09, 2025 1 0:11am S/P PTCA (percutaneous transluminal mounika nary angioplasty) May 09, 2025 10:11am Additional Source Comments Reason for Visit (unrecogniz ed section and content) ReasonCommentsAbdominal PainulcerSpecialtyDiagnoses / ProceduresReferred By ContactReferred To Contact Diagnoses Acute gastric ulcer with perforation (HCC) Perforated viscus Delon Carrion, DO [address] [facility] [address] [place] [address] [facility] [address] [place] [address] Referral IDStatusReasonStart DateExpiration DateVisits RequestedVisits [id number] [facility]/2023Specialty Diagnoses / ProceduresReferred By ContactReferred To Contact Diagnoses Abnormal stress test ASHD (arteriosclerotic heart disease) Procedures ECG 12 Lead Govind Davis, DO [address] [facility] [address] [place] [address] Referral IDStatusReasonStart DateExpiration DateVisits RequestedVisits [id number] [id number]-woYGQ SpecialtyDiagnoses / ProceduresReferred By ContactReferred To ContactCardiology Diagnoses ASHD (arteriosclerotic heart disease) Procedures Follow Up In Cardiology Sammy Berman, CLINICAL LAB CLERK-SHIRT HEMMER [address] [facility] [address] [place] [address] Referral IDStatusReasonStart DateExpiration DateVisits RequestedVisits [id number]/13/202312/312009OtleuaEgsesetgNma-imik office visitToday patient reports he is feeling [...] Procedures OFFICE/OUTPATIENT NEW HIGH MDM 60 MINUTES [id number] (SNOMED CT) - AMB REFERRAL TO ENDOCRINOLOGY Anatoly Anne, KALANI [address] [place] [address] Madelyn Reese MD, PhD [address] [place] [address] Referral IDStatusReasonStart DateExpiration DateVisits RequestedVisits [id number] [id number]-eqasb office visitHospital Follow-fwAoznuiGpsexqms0zp pow I&D Lt. abd. wall abscess ReasonCommentsOmnipod [...] G7 issuesReasonCommentsOmnipod/Dexcom issues ReasonCommentsHigh Blood SugarReasonOnset DateCommentsRefill Dgdydlp1712/19/2024 ReasonOnset DateCommentsRefill Csgxkmk2812/12/2024ReasonCommentsFlank PainLeft- side for 10 days, denies change [...] Geiger, RN) * 0621 (Given - Provider: Queat Geiger, RN) * 1211 (Given - Provider: [...] Name: SALVADOR NARANJO DO Address: [address] [facility] [place], [place] [address] Telecom: Team Status: Active Member Role Status Dates Marie Tejeda DO Primary Care Provider Active Team Status: Inactive Member Role Status Dates Marie Tejeda DO Primary Care Provider Active Dimitri Miranda ProviderActiveKristophmichelle Robertom , DOAdmit ProviderActiveAshwini Conrad MDOther ProviderActiveChuck Velasco MD Other ProviderActiveAnat Perez MDOther ProviderActiveHumberto Diaz MD Attending ProviderActiveTru Yap MDOther ProviderActiveTeam Member RelationshipSpecialtyStart DateEnd Date Marie Tejeda [facility] [address] [place] [address] PCP - GeneralInternal Medicine01/07/22 Team Status: Active [...] MDOther ProviderActiveEarelham Angeles MDOther ProviderActiveMarga Mccauley , RESCUE WORKER-COther ProviderActiveIndra Guillory MDOther ProviderActiveDavid Fonseca MD Other ProviderActiveHai Aguilera MDOther ProviderActiveAnoPino MDOther ProviderActiveMargerald Urena , DOOther ProviderActiveNeal R Lina , DOOther ProviderActiveAnthony M Miniaci , DOOther ProviderActiveLinda Obika , APRNOther ProviderActiveShradhan Khoi Gross , DOOther ProviderActiveObaydah Guille Jimenez MDOther ProviderActivePaula Aileen Berman , APRNOther ProviderActiveAlicia Arnaldo Pimentel , CLINICAL LAB CLERK Other ProviderActiveVidya Robert MDOther ProviderActiveDagerson Burrell MDOther ProviderActiveKyle Leeann John , DOOther ProviderActivePatricia Brody Murdock , APRNOther ProviderActiveYadontae Drake , DOOther ProviderActiveErma Morillo RNOther ProviderActiveTeam MemberRelationshipSpecialtyStart DateEnd Date Marie Tejeda DO [address] [place] [address] PCP - GeneralInternal Syytqtle32/7/23 Team Status: Inactive Member Role Status Dates [...] Tejeda, [address] [place] [address] [facility] Aytnigac79/7/23 Team Status: Inactive Member Role Status Dates [...] September 27, 2023 End: September 26lewis Flores RESCUE WORKER-CAttending ProviderActive Start: September 27, 2023 End: September 27, 2023 Team Status: Inactive Member Role Status Dates Marie Tejeda DO Primary Care Provider Active Start: September 28, 2023 End: September 28, 2023Rachelle Luciano RESCUE WORKER-CAttending ProviderActiveStart: September 28, 2023 End: September 28, [...] Member Role Status Dates Anat Perez MD Saloonkeeper Active [facility] ProviderActive Team Status: Inactive Member Role Status [...] DO [address] [place] [address] PCP - GeneralInternal Medicine01/08/23 Marie Tejeda DO [address] [place] [address] PCP - ACO Reach09/10/23 Patrick Beard MD [address] [facility] [address] [place] [address] Referring FntxxttpyWqlaodhlfxoickpg09/7/24 Andrey Grullon MD [address] [place] [address] Referring ObigyixckYbuirvxno77/7/24 Saúl Davis MD [address] [place] [address] [address] [place] [address] Referring VjjuhloenVileahstyo84/7/24 Team Status: Active Member Role Status Dates [...] [address] [place] [address] PCP - GeneralInternal Medicine01/08/23 Marie Tejeda DO [address] [place] [address] PCP - ACO Reach09/10/23 Patrick Beard MD 1 [facility] [address] [place] [address] Referring PwrebyhhmCtrxdjemmxcubbfz17/7/24 Andrey Grullon MD [address] [place] [address] Referring JvnoknxguMomerlrmv66/7/24 Saúl Davis MD 703 [facility] 250 [place] [address] Referring XnzkumsgoVmrkewaolx90/7/24 Team Status: Inactive Member Role Status Dates [...] DO [address] [place] [address] PCP - GeneralInternal Medicine01/08/23 Marie Tejeda DO [address] [place] [address] PCP - ACO Reach09/10/23 Patrick Beard MD 1 [facility] [address] [place] [address] Referring GnpmhcotwMhbhtwvbcvnggnur95/7/24 Andrey Grullon MD [address] [place] [address] Referring GryodijukBpjmixiwr48/7/24 Saúl Davis MD [address] [place] [address] 250 [place] [address] Referring XhiqxxwsgZqvqljyqis60/7/24Team MemberRelationshipSpecialtyStart Date End Date Marie Tejeda DO [address] [place] [address] PCP - GeneralInternal Medicine01/08/23 Marie Tejeda DO [address] [place] [address] PCP - ACO Reach09/10/23 Patrick Beard MD 1 [facility] [address] [place] [address] Referring UoyiijxwlWbwqlcgkjyrmfuwj45/7/24 Andrey Grullon MD [address] [place] [address] Referring HoguaysbyFpfzcoswn58/7/24 Saúl Davis MD 703 [facility] [address] [place] [address] Referring VxupsgvgbNyzkfwogok15/7/24Team MemberRelationshipSpecialtyStart Date End Date Marie Tejeda DO [address] [place] [address] PCP - GeneralInternal Medicine03/30/18 Anatoly Anne CNP [address] [place] [address] ReferringInternal Lkcptleh33/16/24Team MemberRelationshipSpecialtyStart DateEnd Date Marie Tejeda DO [address] [place] [address] PCP - GeneralInternal Medicine03/30/18 Anatoly Anne CNP [address] [place] [address] ReferringInternal Gdmpizob54/16/24Team MemberRelationshipSpecialtyStart DateEnd Date Marie Tejeda DO [address] [place] [address] PCP - GeneralInternal Medicine01/08/23 Marie Tejeda DO [address] [place] [address] PCP - ACO Reach09/10/23 Patrick Beard MD 1 [facility] [address] [place] [id number] Referring RfwlqswreTdiaetkzjljxdfmx52/7/24 Andrey Grullon MD [address] [place] [address] Referring GfojllegzTgqpvmqrh90/7/24 Saúl Davis MD 703 [facility] [address] [place] [address] Referring UqwafmbsaJuuhuochbj06/7/24Team MemberRelationshipSpecialtyStart Date End Date Marie Tejeda DO [address] [place] [address] PCP - GeneralInternal Medicine01/08/23 Marie Tejeda DO [address] [place] [address] PCP - ACO Reach09/10/23 Patrick Beard MD 1 [facility] [address] [place], [place] [id number] Referring DmbadgjpkIeibjpvqkdsdaren21/7/24 Andrey Grullon MD [address] [place] [address] Referring YcdccoollJamtjnfvl32/7/24 Saúl Davis MD [address] [place] [address] Referring BnliogtjiIazyjvsdxj74/7/24Team MemberRelationshipSpecialtyStart Date End Date Marie Tejeda DO [address] [place] [address] PCP - GeneralInternal Medicine03/30/18 Anatoly Anne CNP [address] [place] [address] ReferringInternal Txilwpba94/16/24Team MemberRelationshipSpecialtyStart DateEnd Date Marie Tejeda DO [address] [place] [address] PCP - GeneralInternal Medicine03/30/18 Anatoly Anne CNP [address] [place] [address] ReferringInternal Gdjjkbsy18/16/24 Team Status: Inactive Member Role Status Dates [...] DO [address] [place] [address] PCP - GeneralInternal Medicine01/08/23 Marie Tejeda DO [address] [place] [address] PCP - ACO Reach09/10/23 Patrick Beard MD 1 [facility] [address] [place] [address] Referring MkbbqajytTimgzrhtmngevmcq84/7/24 Andrey Grullon MD [address] [place] [address] Referring NtdzvlktoFqpgccksd28/7/24 Saúl Davis MD [address] [place] [address] [address] [place] [address] Referring IqfojwwosThjykffzjf24/7/24Team MemberRelationshipSpecialtyStart Date End Date Marie Tejeda DO [address] [place] [address] PCP - GeneralInternal Medicine01/08/23 Marie Tejeda DO [address] [place] [address] PCP - ACO Reach09/10/23 Patrick Beard MD 1 [facility] [address] [place] [address] Referring FcswatcwqSzyprbtloeizhlwt88/7/24 Andrey Grullon MD [address] [place] [address] Referring UgaelhcpzTsjdvsoto82/7/24 Saúl Davis MD 703 [facility] [address] [place] [address] Referring BmqlwaiktXzhpcwvjfk12/7/24Team MemberRelationshipSpecialtyStart Date End Date Marie Tejeda DO [address] [place] [address] PCP - GeneralInternal Medicine03/30/18 Anatoly Anne CNP [address] [place] [address] ReferringInternal Ygeswxzz54/16/24Team MemberRelationshipSpecialtyStart DateEnd Date Marie Tejeda DO [address] [place] [address] PCP - GeneralInternal Medicine03/30/18 Anatoly Anne CNP [address] [place] [address] ReferringInternal Lrfiiljz47/16/24Team MemberRelationshipSpecialtyStart DateEnd Date Marie Tejeda DO [address] [place] [address] PCP - GeneralInternal Medicine03/30/18 Anatoly Anne APRN.CNP [address] [place] [address] ReferringInternal Inbxiyfd30/16/24 Team Status: Active Member Role Status Dates Marie Teejda DO Primary Care Provider Active Start: August 29, 2024 Anat Perez , MDReferring ProviderActiveStart: August 29, 2024 Abdulaziz Root , MDAttending Provider, Other ProviderActiveStart: August 29, 2024 Team MemberRelationshipSpecialtyStart DateEnd Date Marie Tejeda DO [address] [facility] [address] [place] [address] PCP - GeneralInternal Medicine01/08/23 Marie Tejeda DO [address] [place] [address] PCP - ACO Reach09/10/23 Patrick Beard MD 1 [facility] [address] [place], [place] [address] Referring AenxpflqwUepfqjijvgihfcss29/7/24 Andrey Grullon MD [address] [place] [address] Referring OaivnmhvoMvmmnymqi75/7/24 Súal Davis MD 703 [facility] [address] [place] [address] Referring QwayiyyxkFqlxixhzbg79/7/24 Team Status: Inactive Member Role Status Dates Marie Tejeda DO Primary Care Provider Active Start: August 31, 2024 End: August 31, 2024Jose Britoending ProviderActiveStart: August 31, 2024 End: August 31, 2024Team MemberRelationshipSpecialtyStart DateEnd Date Marie Tejeda DO [address] [place] [address] PCP - GeneralInternal Medicine03/30/18 Anatoly Anne, CLINICAL LAB CLERK.SHIRT HEMMER [address] [place] [address] ReferringInternal Bvuatqcb23/16/24Team MemberRelationshipSpecialtyStart DateEnd Date Marie Tejeda DO [address] [place] [address] PCP - GeneralInternal Medicine03/30/18 Anatoly Anne, CLINICAL LAB CLERK.SHIRT HEMMER [address] [place] [address] ReferringInternal Lmwzelqf17/16/24Team MemberRelationshipSpecialtyStart DateEnd Date Marie Tejeda DO [address] [place] [address] PCP - GeneralInternal Medicine01/08/23 Marie Tejeda DO [address] [place] [address] PCP - ACO Reach09/10/23 Patrick Beard MD 1 [facility] [address] [place] [address] Referring WvxchkoezYedtqexdkafrwjzv98/7/24 Andrey Grullon MD [address] [place] [address] Referring KgodmtsxaHvjsiewhb30/7/24 Saúl Davis MD 703 [facility] [address] [place] [address] Referring TkivwluolPplwulqwhy21/7/24Team MemberRelationshipSpecialtyStart Date End Date Marie Tejeda DO [address] [place] [address] PCP - GeneralInternal Medicine03/30/18 Anatoly Anne, CLINICAL LAB CLERK.SHIRT HEMMER [address] [place] [address] ReferringInternal Kykipnlk34/16/24Team MemberRelationshipSpecialtyStart DateEnd Date Marie Tejeda DO [address] [place] [address] PCP - GeneralInternal Medicine03/30/18 Anatoly Anne, CLINICAL LAB CLERK.SHIRT HEMMER [address] [place] [address] ReferringInternal Ugdxpelm86/16/24Team MemberRelationshipSpecialtyStart DateEnd Date Marie Tejeda DO [address] [place] [address] PCP - GeneralInternal Medicine03/30/18 Anatoly Anne, CLINICAL LAB CLERK.SHIRT HEMMER [address] [place] [address] ReferringInternal Gvetqwch88/16/24Team MemberRelationshipSpecialtyStart DateEnd Date Marie Tejeda DO [address] [place] [address] PCP - GeneralInternal Medicine03/30/18 [facility], CLINICAL LAB CLERK.SHIRT HEMMER [address] [place] [address] ReferringInternal Vwyryppy78/16/24Team MemberRelationshipSpecialtyStart DateEnd Date Marie Tejeda, DO [address] [place] [address] PCP - GeneralInternal Medicine03/30/18 [facility], CLINICAL LAB CLERK.SHIRT HEMMER [address] [place] [address] ReferringInternal Oqfgkfwj56/16/24Team MemberRelationshipSpecialtyStart DateEnd Date Marie Tejeda, DO [address] [place] [address] PCP - GeneralInternal Medicine03/30/18 [facility], CLINICAL LAB CLERK.SHIRT HEMMER [address] [place] [address] ReferringInternal Tmtuutzf51/16/24Team MemberRelationshipSpecialtyStart DateEnd Date Marie Tejeda, DO [address] [place] [address] PCP - GeneralInternal Medicine03/30/18 Anatoly Anne, CLINICAL LAB CLERK.SHIRT HEMMER [address] [place] [address] ReferringInternal Dwgkxdax21/16/24Team MemberRelationshipSpecialtyStart DateEnd Date Marie Tejeda DO [address] [place] [address] PCP - GeneralInternal Medicine03/30/18 Anatoly Anne, CLINICAL LAB CLERK.SHIRT HEMMER [address] [place] [address] ReferringInternal Xfvaguke22/16/24Team MemberRelationshipSpecialtyStart DateEnd Date Marie Tejeda DO [address] [place] [address] PCP - GeneralInternal Medicine03/30/18 Anatoly Anne, CLINICAL LAB CLERK.SHIRT HEMMER [address] [place] [address] ReferringInternal Rqjwpbac04/16/24 Team Status: Inactive Member Role Status Dates Marie Tejeda DO Primary Care Provider Active Start: October 13, 2024 End: October 13, 2024Linda AnaRAHEEL stephenttmyrna ProviderActiveStart: October 13, 2024 End: October 13, 2024Team MemberRelationshipSpecialtyStart DateEnd Date Marie Tejeda DO [address] [place] [address] PCP - GeneralInternal Medicine01/08/23 Marie Tejeda DO [address] [place] [address] PCP - ACO Reach09/10/23 Patrick Beard MD 1 [facility] [address] [place] [address] Referring ZhvfnetszGcsgqbzhcafnwzov32/7/24 Andrey Grullon MD [address] [place] [address] Referring AobzxxfukPqzhlgyjz72/7/24 Saúl Davis MD 703 [facility], [address] [place] [address] Referring KsqclxgotNkjnwvjter04/7/24Team MemberRelationshipSpecialtyStart Date End Date Marie Tejeda DO [address] [place] [address] PCP - GeneralInternal Medicine03/30/18 Anatoly Anne APRN.SHIRT HEMMER [address] [place] [address] ReferringInternal Fbsykodm90/16/24Team MemberRelationshipSpecialtyStart DateEnd Date Marie Tejeda DO [address] [place] [address] PCP - GeneralInternal Medicine03/30/18 Anatoly Anne APRN.SHIRT HEMMER [address] [place] [address] ReferringInternal Hxbvmdij97/16/24 Team Status: Active Member Role Status Dates Marie Tejeda DO Primary Care Provider Active Start: November 30, 2024 Anat Perez MDOther ProviderActiveStart: November 30, 2024 Abdulaziz Root MDAttending ProviderActiveStart: November 30, 2024 Team MemberRelationshipSpecialtyStart DateEnd Date Marie Tejeda DO [address] [place] [address] PCP - GeneralInternal Medicine03/30/18 Cally, Anatoly, CLINICAL LAB CLERK.SHIRT HEMMER [address] [place] [address] ReferringInternal Pzppgckm19/16/24Team MemberRelationshipSpecialtyStart DateEnd Date Marie Tejeda DO [address] [place] [address] PCP - GeneralInternal Medicine03/30/18 Cally, Anatoly, CLINICAL LAB CLERK.SHIRT HEMMER [address] [place] [address] ReferringInternal Ijaghkzo23/16/24Team MemberRelationshipSpecialtyStart DateEnd Date Marie Tejeda DO [address] [place] [address] PCP - GeneralInternal Medicine03/30/18 Cally, Anatoly, CLINICAL LAB CLERK.SHIRT HEMMER [address] [place] [address] ReferringInternal Hxwdoerp84/16/24Team MemberRelationshipSpecialtyStart DateEnd Date Marie Tejeda DO [address] [place] [address] PCP - GeneralInternal Medicine01/08/23 Marie Tejeda DO [address] [place] [address] PCP - ACO Reach09/10/23 Patrick Beard MD 1 [facility] [address] [place] [address] Referring JdonlligqFqmmrfgkvghytmmu39/7/24 Andrey Grullon MD [address] [place] [address] Referring TgaucopsvPzekyyzaj06/7/24 Saúl Davis MD 703 [facility] 2, [address] [place] [address] Referring AyibadlzhEvghnbomfm95/7/24Team MemberRelationshipSpecialtyStart Date End Date Marie eTjeda DO [address] [place] [address] PCP - GeneralInternal Medicine01/08/23 Marie Tejeda DO [address] [place] [address] PCP - ACO Reach09/10/23 Patrick Beard MD 1 [facility] [address] [place] [address] Referring LhilhvatiNgcbxzkcjzcippdt11/7/24 Andrey Grullon MD [address] [place] [address] Referring UtzhicdquPqcfkdycc49/7/24 Saúl Davis MD 703 [facility] 2, [address] [place] [address] Referring JjtplwrxlRevvgdireo55/7/24Team MemberRelationshipSpecialtyStart Date End Date Marie Tejeda DO [address] [place] [address] PCP - GeneralInternal Medicine01/08/23 Marie Tejeda DO [address] [place] [address] PCP - ACO Reach09/10/23 Patrick Beard MD 1 [facility] [address] [place] [address] Referring OfcickkisAgnhwpibmanqzvxa18/7/24 Andrey Grullon MD [address] [place] [address] Referring ZbptovptgSmlevridd34/7/24 Saúl Davis MD 703 [facility] 2[address] [place] [address] Referring BpeiyasbyPrcrivlqye67/7/24 Team Status: Active Member Role Status Dates Marie Tejeda DO Primary Care Provider Active Start: March 02, 2025 Anat Perez MDOther ProviderActiveStart: March 02, 2025 Abdulaziz Root MDAttending ProviderActiveStart: March 02, 2025 Team MemberRelationshipSpecialtyStart DateEnd Date Marie Tejeda DO [address] [place] [address] PCP - GeneralInternal Medicine03/30/18 Anatoly Anne APRN.SHIRT HEMMER [address] [place] [address] ReferringInternal Mpyoyoiz96/16/24 Team Status: Inactive Member Role Status Dates Marie Tejeda DO Primary Care Provider Active Start: March 27, 2025 End: March 27, 2025Linda Aryan Perez ProviderActiveStart: March 27, 2025 End: March 27, 2025Team MemberRelationshipSpecialtyStart DateEnd Date Marie Tejeda DO [address] [place] [address] PCP - GeneralInternal Medicine01/08/23 Marie Tejeda DO [address] [facility] [address] [place] [address] PCP - ACO Reach09/10/23 Patrick Beard MD 1 [facility] [address] [place] [address] Referring EfomdxtlnXmswxarblgayshsx30/7/24 Andrey Grullon MD [address] [place] [address] Referring BagchnhpxIbjqnhzbs18/7/24 Saúl Davis MD [address] [place] [address] [address], [address] [place] [address] Referring ChcnpfateAqxwlkiknd00/7/24Team MemberRelationshipSpecialtyStart Date End Date Marie Tejeda DO [address] [place] [address] PCP - GeneralInternal Medicine01/08/23 Marie Tejeda DO [address] [place] [address] PCP - ACO Reach09/10/23 Patrick Beard MD 1 [facility] [address] [place] [address] Referring YcmeypopqQhwbtyamqjlnvtxe78/7/24 Andrey Grullon MD [address] [place] [address] Referring HncpclaakVcaagdsdp54/7/24 Saúl Davis MD [address] [place] [address] [address], [address] [place] [address] Referring RvvvvbmxxEmbdiuzwkz22/7/24 Team Status: Active Member Role/Relationship Status Dates Anat Perez MD Saloonkeeper Active Shikha Aguilera Care ProviderActive Team Status: [...] DO [address] [place] [address] PCP - GeneralInternal Medicine01/08/23 Marie Tejeda DO [address] [place] [address] PCP - ACO Reach09/10/23 Patrick Beard MD 1 [facility] [address] [place] [address] Referring MzoohophvRsexxgycnbiznbhi63/7/24 Andrey Grullon MD [address] [place] [address] Referring ZrdeayinxUjohhijqk18/7/24 Saúl Davis MD [address] [place] [address] [address], [address] [place] [address] Referring SkqffenzaFnrouheutk30/7/24Team MemberRelationshipSpecialtyStart Date End Date Almita Deras DO [address] [place] [address] PCP - ACO Reach Marie Tejeda DO [address] [place] [address] PCP - GeneralInternal Medicine01/08/23 Marie Tejeda DO [address] [place] [address] PCP - ACO Reach09/10/23 Patrick Beard MD 1 [facility] [address] [place] [address] Referring ZmonipkmiKxgunnuazgoihmwb69/7/24 Andrey Grullon MD [address] [place] [address] Referring WpedyvobeJypdzkdck88/7/24 Saúl Davis MD [address] [place] [address] [address] [place] [address] Referring CcphshdkoDvudizwdty09/7/24Team MemberRelationshipSpecialtyStart Date End Date Marie Tejeda DO [address] [place] [address] PCP - GeneralInternal Medicine01/08/23 Marie Tejeda DO [address] [place] [address] PCP - ACO Reach09/10/23 Patrick Beard MD 1 [facility] [address] [place] [address] Referring MmepcxrlzSftsksuwrujcwzdt96/7/24 Andrey Grullon MD [address] [place] [address] Referring CkkiytngcEyblyeamz14/7/24 Saúl Davis MD [address] [facility] [facility] [address] [place] [address] Referring HhnjaugzrScsgfepzvd14/7/24 (unrecognized sect ion and content) No Status Records FoundNo Status Records FoundNo Status Records FoundNo Status Records FoundNo Status Records FoundNo Status Records FoundNo Status Records FoundNo Status Records FoundNo Status Records FoundNo Status Records FoundNo Status Records FoundNo Status Records FoundNo Status Records FoundNo Status Records Found INFORMATION SOURCE (unrecogn ized section and content) DATE CREATED AUTHOR 01/29/2022 [facility] DATE CREATED AUTHOR AUTHOR'S ORGANIZ ATION 06/11/2022 [facility] DATE CREATED AUTHOR AUTHOR'S ORGANIZ ATION 06/12/2023 [facility] DATE CREATED AUTHOR AUTHOR'S ORGANIZ ATION 10/23/2023 [facility] DATE CREATED AUTHOR AUTHOR'S ORGANIZ ATION 11/18/2023 [facility] DATE CREATED AUTHOR AUTHOR'S ORGANIZ ATION 01/27/2024 [facility] DATE CREATED AUTHOR AUTHOR'S ORGANIZ ATION 05/05/2024 [facility] DATE CREATED AUTHOR AUTHOR'S ORGANIZ ATION 03/08/2025 [facility] DATE CREATED AUTHOR AUTHOR'S ORGANIZ ATION 05/03/2025 [facility] DATE CREATED AUTHOR AUTHOR'S ORGANIZ ATION 05/04/2025 [facility] DATE CREATED AUTHOR AUTHOR'S ORGANIZ ATION 05/19/2025 [facility] DATE CREATED AUTHOR AUTHOR'S ORGANIZ ATION 05/22/2025 [facility] DATE CREATED AUTHOR AUTHOR'S ORGANIZ ATION 05/23/2025 [facility] Source Comments (unrecognize d section and content) In the event this informatio n is protected by the Federal Confidentiality of Alcohol and Drug Abuse Patient Records regulations: The Federal rules restrict any use of the information to criminally investigate or prosecute any alcohol or drug abuse patient.OhiohealthIn the event this information is protected by the Federal Confidentiality of Alcohol and Drug Abuse Patient Records regulations: The Federal rules restrict any use of the information to criminally investigate or prosecute any alcohol or drug abuse patient.OhiohealthIn the event this information is protected by the Federal Confidentiality of Alcohol and Drug Abuse Patient Records regulations: The Federal rules restrict any use of the information to criminally investigate or prosecute any alcohol or drug abuse patient.OhiohealthIn the event this information is protected by the Federal Confidentiality of Alcohol and Drug Abuse Patient Records regulations: The Federal rules restrict any use of the information to criminally investigate or prosecute any alcohol or drug abuse patient.OhiohealthIn the event this information is protected by the Federal Confidentiality of Alcohol and Drug Abuse Patient Records regulations: The Federal rules restrict any use of the information to criminally investigate or prosecute any alcohol or drug abuse patient.OhiohealthIn the event this information is protected by the Federal Confidentiality of Alcohol and Drug Abuse Patient Records regulations: The Federal rules restrict any use of the information to criminally investigate or prosecute any alcohol or drug abuse patient.OhiohealthIn the event this information is protected by the Federal Confidentiality of Alcohol and Drug Abuse Patient Records regulations: The Federal rules restrict any use of the information to criminally investigate or prosecute any alcohol or drug abuse patient.OhiohealthIn the event this information is protected by the Federal Confidentiality of Alcohol and Drug Abuse Patient Records regulations: The Federal rules restrict any use of the information to criminally investigate or prosecute any alcohol or drug abuse patient.OhiohealthIn the event this information is protected by the Federal Confidentiality of Alcohol and Drug Abuse Patient Records regulations: The Federal rules restrict any use of the information to criminally investigate or prosecute any alcohol or drug abuse patient.OhiohealthIn the event this information is protected by the Federal Confidentiality of Alcohol and Drug Abuse Patient Records regulations: The Federal rules restrict any use of the information to criminally investigate or prosecute any alcohol or drug abuse patient.OhiohealthIn the event this information is protected by the Federal Confidentiality of Alcohol and Drug Abuse Patient Records regulations: The Federal rules restrict any use of the information to criminally investigate or prosecute any alcohol or drug abuse patient.OhiohealthIn the event this information is protected by the Federal Confidentiality of Alcohol and Drug Abuse Patient Records regulations: The Federal rules restrict any use of the information to criminally investigate or prosecute any alcohol or drug abuse patient.OhiohealthIn the event this information is protected by the Federal Confidentiality of Alcohol and Drug Abuse Patient Records regulations: The Federal rules restrict any use of the information to criminally investigate or prosecute any alcohol or drug abuse patient.OhiohealthIn the event this information is protected by the Federal Confidentiality of Alcohol and Drug Abuse Patient Records regulations: The Federal rules restrict any use of the information to criminally investigate or prosecute any alcohol or drug abuse patient.OhiohealthIn the event this information is protected by the Federal Confidentiality of Alcohol and Drug Abuse Patient Records regulations: The Federal rules restrict any use of the information to criminally investigate or prosecute any alcohol or drug abuse patient.OhiohealthIn the event this information is protected by the Federal Confidentiality of Alcohol and Drug Abuse Patient Records regulations: The Federal rules restrict any use of the information to criminally investigate or prosecute any alcohol or drug abuse patient.[place]healthIn the event this information is protected by the Federal Confidentiality of Alcohol and Drug Abuse Patient Records regulations: The Federal rules restrict any use of the information to criminally investigate or prosecute any alcohol or drug abuse patient.[place]healthIn the event this information is protected by the Federal Confidentiality of Alcohol and Drug Abuse Patient Records regulations: The Federal rules restrict any use of the information to criminally investigate or prosecute any alcohol or drug abuse patient.[place]healthIn the event this information is protected by the Federal Confidentiality of Alcohol and Drug Abuse Patient Records regulations: The Federal rules restrict any use of the information to criminally investigate or prosecute any alcohol or drug abuse patient.[place]healthIn the event this information is protected by the Federal Confidentiality of Alcohol and Drug Abuse Patient Records regulations: The Federal rules restrict any use of the information to criminally investigate or prosecute any alcohol or drug abuse patient.[place]healthIn the event this information is protected by the Federal Confidentiality of Alcohol and Drug Abuse Patient Records regulations: The Federal rules restrict any use of the information to criminally investigate or prosecute any alcohol or drug abuse patient.[place]healthIn the event this information is protected by the Federal Confidentiality of Alcohol and Drug Abuse Patient Records regulations: The Federal rules restrict any use of the information to criminally investigate or prosecute any alcohol or drug abuse patient.[place]healthIn the event this information is protected by the Federal Confidentiality of Alcohol and Drug Abuse Patient Records regulations: The Federal rules restrict any use of the information to criminally investigate or prosecute any alcohol or drug abuse patient.[place]healthIn the event this information is protected by the Federal Confidentiality of Alcohol and Drug Abuse Patient Records regulations: The Federal rules restrict any use of the information to criminally investigate or prosecute any alcohol or drug abuse patient.[place]healthIn the event this information is protected by the Federal Confidentiality of Alcohol and Drug Abuse Patient Records regulations: The Federal rules restrict any use of the information to criminally investigate or prosecute any alcohol or drug abuse patient.[place]healthIn the event this information is protected by the Federal Confidentiality of Alcohol and Drug Abuse Patient Records regulations: The Federal rules restrict any use of the information to criminally investigate or prosecute any alcohol or drug abuse patient.[place]healthIn the event this information is protected by the Federal Confidentiality of Alcohol and Drug Abuse Patient Records regulations: The Federal rules restrict any use of the information to criminally investigate or prosecute any alcohol or drug abuse patient.[place]healthIn the event this information is protected by the Federal Confidentiality of Alcohol and Drug Abuse Patient Records regulations: The Federal rules restrict any use of the information to criminally investigate or prosecute any alcohol or drug abuse patient.[place]healthIn the event this information is protected by the Federal Confidentiality of Alcohol and Drug Abuse Patient Records regulations: The Federal rules restrict any use of the information to criminally investigate or prosecute any alcohol or drug abuse patient.[place]healthIn the event this information is protected by the Federal Confidentiality of Alcohol and Drug Abuse Patient Records regulations: The Federal rules restrict any use of the information to criminally investigate or prosecute any alcohol or drug abuse patient.[place]healthIn the event this information is protected by the Federal Confidentiality of Alcohol and Drug Abuse Patient Records regulations: The Federal rules restrict any use of the information to criminally investigate or prosecute any alcohol or drug abuse patient.[place]healthIn the event this information is protected by the Federal Confidentiality of Alcohol and Drug Abuse Patient Records regulations: The Federal rules restrict any use of the information to criminally investigate or prosecute any alcohol or drug abuse patient.[place]healthIn the event this information is protected by the Federal Confidentiality of Alcohol and Drug Abuse Patient Records regulations: The Federal rules restrict any use of the information to criminally investigate or prosecute any alcohol or drug abuse patient.[place]healthIn the event this information is protected by the Federal Confidentiality of Alcohol and Drug Abuse Patient Records regulations: The Federal rules restrict any use of the information to criminally investigate or prosecute any alcohol or drug abuse patient.[place]healthIn the event this information is protected by the Federal Confidentiality of Alcohol and Drug Abuse Patient Records regulations: The Federal rules restrict any use of the information to criminally investigate or prosecute any alcohol or drug abuse patient.[place]healthIn the event this information is protected by the Federal Confidentiality of Alcohol and Drug Abuse Patient Records regulations: The Federal rules restrict any use of the information to criminally investigate or prosecute any alcohol or drug abuse patient.[place]healthIn the event this information is protected by the Federal Confidentiality of Alcohol and Drug Abuse Patient Records regulations: The Federal rules restrict any use of the information to criminally investigate or prosecute any alcohol or drug abuse patient.[place]healthIn the event this information is protected by the Federal Confidentiality of Alcohol and Drug Abuse Patient Records regulations: The Federal rules restrict any use of the information to criminally investigate or prosecute any alcohol or drug abuse patient.[facility] Goals (unrecognized section and content) Goals may [...] PRIMARY CLINICAL RECORDS. [facility] [employer] [facility]. provides no warranty or guarantee of the accuracy or completeness of information in this document.
[2025-07-10 13:07] LABS: Estimated GFR (African America >60 (>=60 mL/min/1.73m^2); Estimated GFR (Non-African Ame >60 (>=60 mL/min/1.73m^2)
[2025-07-10 13:14] LABS: Hemoglobin 7.5 g/dL (14.0-18.0); Immature Granulocytes Abs Auto 0.03 10^3/uL (0.00-0.03); Immature Granulocytes Pct Auto 0.3 % (0.0-0.5); Lymphocytes Absolute Auto 0.7 10^3/uL (1.2-3.8); Mean Corpuscular HGB Conc 32.3 g/dL (29.9-35.2); Mean Corpuscular Hemoglobin 25.4 pg (25.9-34.0); Mean Corpuscular Volume 78.6 fL (80.0-94.0); Platelet Count 220 10^3/uL (150-450); Red Blood Count 2.95 10^6/uL (4.70-6.10); White Blood Count 10.6 10^3/uL (4.0-11.0)
[2025-07-10 13:41] LABS: Hematocrit 23.2 % (42.0-54.0)
--- OUTSIDE RECORDS SUMMARY | 2025-08-31 19:00 | XMS_ITS | Clinical Summary ---
Author Organization Unknown Care Team Providers Care Transportation Engineer Name Role Phone MYA OGLESBY, BOWEN Unavailable Unavailable MAGNO FRAZIER, GLADYS Unavailable Unavailable Payers Payer Name Policy Type Policy Number Effective Date Expira tion Date MEDICARE - [place] [facility] [id number] Problems Condition Name Condition Details Condition Category Status Onset Date Resolution Date Last Treatment Date Treating Clinician Comments URINARY TRACT INFECTION, SITE NOT SPECIF IED [id number] 00:00:00 Allergies, Adverse Reactions, Alerts Allergy Name Allergy Type Status Severity Reaction(s) Onset Date Inactive Date Treating Clinician Comments NKA Propensity to adverse reactions Active 2025-07-04 14:13:47 Vital Signs Vital Name Observation Time Observation Value Commen ts Temperature 2025-07-04 14:10:00.000 98.3 [degF] BMI (%)2025-07-06 01:39:16.62927 kg/z7Zsshdi7837-97-99 01:38:50.60677 [in_us] [id number] 14:10:00.73589 /minO2 Saturation (%)2025-07-04 14:10:00.26217 % [id number] 14:10:00.37130 /minWeight (lbs)2025-07-06 01:39:16.260736 [lb_av]Systolic Blood [id number] 14:10:00.945046 mm[Hg]Diastolic Blood [id number] 14:10:00.70735 mm[Hg] Plan of Treatment Planned Activity Planned Date Details Comments Future Scheduled Test SKILLED NURSE TO EVALUATE PATIENT, IDENTIFY PRIMARY AND CO-MORBID CONDITIONS CODED PER CODING GUIDELINES, AND DEVELOP PATIENT SPECIFIC PLAN OF CARE THAT INCLUDES PATIENT GOAL FOR HOME HEALTH. PLAN OFCARE TO INCLUDE 3 PRN VISIT(S) FOR OASIS DATA COLLECTION/COMPREHENSIVE ASSESSMENT AT TIMEPOINTS PERFEDERAL REGULATIONS. THIS INCLUDES VISITS FOR JENNIFER, RECERT, SCIC, AND/OR DC. [code = SKILLED NURSE TO EVALUATE PATIENT, IDENTIFY PRIMARY AND CO-MORBID CONDITIONS CODED PER CODING GUIDELINES, AND DEVELOP PATIENT SPECIFIC PLAN OF CARE THAT INCLUDES PATIENT GOAL FOR HOME HEALTH. PLAN OF CARE TO INCLUDE3 PRN VISIT(S) FOR OASIS DATA COLLECTION/COMPREHENSIVE ASSESSMENT AT TIMEPOINTS PER FEDERAL REGULATIONS. THIS INCLUDES VISITS FOR JENNIFER, RECERT, SCIC, AND/OR DC.]Future Scheduled TestSKILLED NURSE TO REVIEW PATIENT MEDICATIONS (PRESCRIPTION/OTC). INSTRUCT PATIENT/CAREGIVER ON ALL MEDICATIONS INCLUDING PURPOSE, WHEN TO TAKE, IMPORTANCE OF MEDICATION ADHERENCE, MONITORING OF EFFECTIVENESS, ADVERSE DRUG REACTIONS, POSSIBLE SIDE EFFECTS, AND WHEN TO NOTIFY AGENCY OR PHYSICIAN/PROVID ER OF ANY CONCERNS. [code = SKILLED NURSE TO REVIEW PATIENT MEDICATIONS (PRESCRIPTION/OTC). INSTRUCT PATIENT/CAREGIVER ON ALL MEDICATIONS INCLUDING PURPOSE, WHEN TO TAKE, IMPORTANCE OF MEDICATION ADHERENCE, MONITORING OF EFFECTIVENESS, ADVERSE DRUG REACTIONS, POSSIBLE SIDE EFFECTS, AND WHEN TO NOTIFY AGENCY OR PHYSICIAN/PROVIDER OF ANY CONCERNS.]Future Scheduled TestPATIENT HAS A RISK OF HOSPITALIZATION AND ED USE. SKILLED NURSE TO ESTABLISH SUPPORT MEASURES TO MINIMIZE RISK OF HOSPITALIZATION AND ED USE, AND INSTRUCT PATIENT/CAREGIVER ON METHODS TO REDUCE AVOIDABLE HOSPITALIZATION AND ED USE. [code = PATIENT HAS A RISK OF HOSPITALIZATION AND ED USE. SKILLED NURSE TO ESTABLISH SUPPORT MEASURES TO MINIMIZE RISK OF HOSPITALIZATION AND ED USE, AND INSTRUCT PATIENT/CAREGIVER ON METHODS TO REDUCE AVOIDABLE HOSPITALIZATION AND ED USE.]Future Scheduled TestSKILLED NURSE TO PROVIDE INSTRUCTION TO PATIENT/CAREGIVER RELATED TO DISCHARGE PLANNING. [code = SKILLED NURSE TO PROVIDE INSTRUCTION TO PATIENT/CAREGIVER RELATED TO DISCHARGE PLANNING.]Future Scheduled TestSKILLED NURSE TO PERFORM ENVIRONMENTAL SAFETY RISK ASSESSMENT AND FALL RISK ASSESSMENT AND PROVIDE INSTRUCTION TO IMPLEMENT ENVIRONMENTAL SAFETY AND FALL PREVENTION STRATEGIES THROUGHOUT THE CERTIFICATION PERIOD. SKILLED NURSE WILL MAINTAIN SITUATIONAL AWARENESS AND WILL NOTIFY CLINICAL LOCKSTITCH BACK MAKER AND PHYSICIAN/PROVIDER WITH ANY CHANGE IN CONDITION. [code = SKILLED NURSE TO PERFORM ENVIRONMENTAL SAFETY RISK ASSESSMENT AND FALL RISK ASSESSMENT AND PROVIDE INSTRUCTION TO IMPLEMENT ENVIRONMENTAL SAFETY AND FALL PREVENTION STRATEGIES THROUGHOUT THE CERTIFICATION PERIOD. SKILLED NURSE WILL MAINTAIN SI TUATIONAL AWARENESS AND WILL NOTIFY CLINICAL LOCKSTITCH BACK MAKER AND PHYSICIAN/PROVIDER WITH ANY CHANGE IN CONDITION.]Future Scheduled TestSKILLED NURSE FOR OBSERVATION AND ASSESSMENT OF PATIENT S PAIN LEVEL AND EFFECTIVENESS OF PAIN MANAGEMENT REGIMEN. SKILLED NURSE TO INSTRUCT PATIENT/CAREGIVER REGARDING PHARMACOLOGIC AND NON-PHARMACOLOGIC PAIN CONTROL MEASURES. SKILLED NURSE TO REPORT TO PHYSICIAN IF PAIN LEVEL IS OUTSIDE OF ESTABLISHED PARAMETERS. [code = SKILLED NURSE FOR OBSERVATION AND ASSESSMENT OF PATIENT S PAIN LEVEL AND EFFECTIVENESS OF PAIN MANAGEMENT REGIMEN. SKILLED NURSE TO INSTRUCT PATIENT/CAREGIVER REGARDING PHARMA COLOGIC AND NON-PHARMACOLOGIC PAIN CONTROL MEASURES. SKILLED NURSE TO REPORT TO PHYSICIAN IF PAIN LEVEL IS OUTSIDE OF ESTABLISHED PARAMETERS.]Future Scheduled TestSKILLED NURSE TO ASSESS PATIENT'S SKIN INTEGRITY AND INSTRUCT PATIENT/CAREGIVER ON MEASURES TO PREVENT PRESSURE ULCERS. [code = SKILLED NURSE TO ASSESS PATIENT'S SKIN INTEGRITY AND INSTRUCT PATIENT/CAREGIVER ON MEASURES TO PREVENT PRESSURE ULCERS.]Future Scheduled TestSKILLED NURSE TO PROVIDE TEACHING ON SIGNS AND SYMPTOMS AND MANAGEMENT OF HYPERTENSION. [code = SKILLED NURSE TO PROVIDE TEACHING ON SIGNS AND SYMPTOMS AND MANAGEMENT OF HYPERTENSION.]Future Scheduled TestSKILLED NURSE FOR O/A, TEACHING AND SELF-MANAGEMENT RELATED TO HEART FAILURE. INSTRUCT PATIENT/CAREGIVER ON SIGNS AND SYMPTOMS OF EXACERBATION TO REPORT AND IMPORTANCE OF OBTAINING AND RECORDING DAILY WEIGHT AND/OR MEASUREMENTS. SN OR TRAINED PATIENT/CAREGIVER TO OBTAIN WEIGHT DAILY AND WEIGHT GAINOF 3 LBS OVERNIGHT OR 5 LBS IN 1 WEEK TO BE REPORTED TO PHYSICIAN/PROVIDER. [code = SKILLED NURSE FOR O/A, TEACHING AND SELF-MANAGEMENT RELATED TO HEART FAILURE. INSTRUCT PATIENT/CAREGIVER ON SIGNS AND SYMPTOMS OF EXACERBATION TO REPORT AND IMPORTANCE OF OBTAINING AND RECORDING DAILY WEIGHT AND/OR M EASUREMENTS. SN OR TRAINED PATIENT/CAREGIVER TO OBTAIN WEIGHT DAILY AND WEIGHT GAIN OF 3 LBS OVERNIGHT OR 5 LBS IN 1 WEEK TO BE REPORTED TO PHYSICIAN/PROVIDER.]Future Scheduled TestSKILLED NURSE FOR O/A AND SKILLED TEACHING RELATED TO SIGNS AND SYMPTOMS AND MANAGEMENT OF ANEMIA. [code = SKILLED NURSE FOR O/A AND SKILLED TEACHING RELATED TO SIGNS AND SYMPTOMS AND MANAGEMENT OF ANEMIA.]Future Scheduled TestSKILLED NURSE FOR O/A AND TEACHING OF DIABETIC MANAGEMENT INCLUDING BLOOD SUGAR MONITORING/USE OF GLUCOMETER, DIABETIC DIET, LOWER EXTREMITY SKIN INSPECTION, PROPER SKIN/FOOT CARE, AND SIGNS AND SYMPTOMS HYPO/HYPERGLYCEMIA TO REPORT. [code = SKILLED NURSE FOR O/A AND TEACHING OF DIABETIC MANAGEMENTINCLUDING BLOOD SUGAR MONITORING/USE OF GLUCOMETER, DIABETIC DIET, LOWER EXTREMITY SKIN INSPECTION,PROPER SKIN/FOOT CARE, AND SIGNS AND SYMPTOMS HYPO/HYPERGLYCEMIA TO REPORT.]Future Scheduled TestSKILLED NURSE FOR O/A OF SELF-CARE DEFICITS AND TO PROVIDE TEACHING RELATED TO SAFE PROVISION OF ADLS. [code = SKILLED NURSE FOR O/A OF SELF-CARE DEFICITS AND TO PROVIDE TEACHING RELATED TO SAFE PROVISION OF ADLS.]Future Scheduled TestSKILLED NURSE FOR O/A AND TEACHING ON IV SITE CARE, INFUSION PROCEDURE, SIGNS AND SYMPTOMS OF INFECTION/COMPLICATIONS. SKILLED NURSE TO OBTAIN IV ACCESS TO CENTRAL LINE VIA PICC TO RIGHT UPPER ARM. SKILLED NURSE OR TRAINED PATIENT/CAREGIVER TO ADMINISTER IV THERAPY OF CEFAZOLIN, 10ML SALINE AND 5MLHEPARIN FLUSH. 2GM CEFAZOLIN Q8H THROUGH 08/09 SKILLED NURSE TO CHANGE DRESSING USING STERILE TECHNIQUE WEEKLY AND PRN FOR SOILED OR LOOSE DRESSING. [code = SKILLED NURSE FOR O/A AND TEACHING ON IV SITE CARE, INFUSION PROCEDURE, SIGNS AND SYMPTOMS OF INFECTION/COMPLICATIONS. SKILLED NURSE TO OBTAIN IV ACCESS TO CENTRAL LINE VIA PICC TO RIGHT UPPER ARM. SKILLED NURSE OR TRAINED PATIENT/CAREGIVER TOADMINISTER IV THERAPY OF CEFAZOLIN, 10ML SALINE AND 5ML HEPARIN FLUSH. 2GM CEFAZOLIN Q8H THROUGH 08/09 SKILLED NURSE TO CHANGE DRESSING USING STERILE TECHNIQUE WEEKLY AND PRN FOR SOILED OR LOOSE DRESSING.]Future Scheduled TestSKILLED NURSE TO OBTAIN BLOOD SPECIMEN VIA CENTRAL LINE FOR LABS ORDERED CBC W DIFF CREATININE CRP EVERY WEDNESDAY OR WEDNESDAY OBTAIN LAB RESULTS AND REPORT TO PHYSICIAN. [code = SKILLED NURSE TO OBTAIN BLOOD SPECIMEN VIA CENTRAL LINE FOR LABS ORDERED CBC W DIFF CREATININE CRP EVERY WEDNESDAY OR WEDNESDAY OBTAIN LAB RESULTS AND REPORT TO PHYSICIAN.]Future Scheduled TestPHYSICAL THERAPIST TO EVALUATE PATIENT FOR WEAKNESS IMPAIRED GAIT UNSTEADY FREQUENT FALLS POOR ENDURANCE POOR BALANCE [code = PHYSICAL THERAPIST TO EVALUATE PATIENT FOR WEAKNESS IMPAIRED GAIT UNSTEADY FREQUENT FALLS POOR ENDURANCE POOR BALANCE]Future Scheduled TestOCCUPATIONAL THERAPIST TO EVALUATE PATIENT FOR IMPAIRED ABILITY TO PERFORM ADLS NEED FOR STRENGTHENING [code = OCCUPATIONAL THERAPIST TO EVALUATE PATIENT FOR IMPAIRED ABILITY TO PERFORM ADLS NEED FORSTRENGTHENING]GoalPatient Goal - GET STRONGER, GET RID OF INFECTIONGoalProvider Goal - A PLAN OF CARE WILL BE ESTABLISHED THAT MEETS PATIENT'S GROUP HOME NEEDS AND INCLUDES PATIENT GOAL FOR HOME HEALTH. GoalProvider Goal - PATIENT/CAREGIVER WILL VERBALIZE UNDERSTANDING OF EDUCATION PROVIDED ON MEDICATIONSBY THE END OF THE CERTIFICATION PERIOD.GoalProvider Goal - PATIENT WILL HAVE SUPPORT MEASURES ESTABLISHED TO PREVENT HOSPITALIZATION AND ED USE AND PATIENT/CAREGIVER WILL VERBALIZE/DEMONSTRATE METHODS TO REDUCE AVOIDABLE HOSPITALIZATION AND ED USE BY END OF EPISODE.GoalProvider Goal - PATIENT/CAREGIVER WILL VERBALIZE UNDERSTANDING OF DISCHARGE PLANNING INSTRUCTIONS BY DATE OF DISCHARGE.GoalProvider Goal - PATIENT/CAREGIVER WILL VERBALIZE/DEMONSTRATE EFFECTIVE ENVIRONMENTAL SAFETY AND FALL PREVENTION STRATEGIES, WILL REMAIN SAFE IN THE COMMUNITY, AND WILL BE FREE OF DANGER TO SELF AND OTHERS THROUGHOUT THE CERTIFICATION PERIOD.GoalProvider Goal - PATIENT/CAREGIVER WILL DEMONSTRATE UNDERSTANDING OF PHARMACOLOGIC AND NONPHARMACOLOGIC PAIN CONTROL MEASURES AND PATIENT WILL HAVE IMPROVEMENT IN PAIN INTERFERING WITH ACTIVITY EVIDENCED BY PAIN AT A LEVEL THAT IS ACCEPTABLE TO THE PATIENT AND PAIN LEVEL WITHIN ESTABLISHED PARAMETERS BY END OF CERTIFICATION PERIOD.GoalProvider Goal - PATIENT/CAREGIVER WILL VERBALIZE UNDERSTANDING OF PRESSURE ULCER PREVENTION BY END OF THE EPISODE.GoalProvider Goal - PATIENT/CAREGIVER WILL VERBALIZE SIGNS AND SYMPTOMS OF HYPERTENSION AND WILL BE ABLE TO DEMONSTRATE ABILITY TO MANAGE EXACERBATION BY END OF THE EPISODE.Goal Provider Goal - PATIENT/CAREGIVER WILL VERBALIZE/DEMONSTRATE KNOWLEDGE AND MANAGEMENT OF HEART FAILURE DISEASE PROCESS BY END OF EPISODE.GoalProvider Goal - PATIENT/CARGIVER WILL VERBALIZE UNDERSTANDING OF ANEMIA INCLUDING SIGNS AND SYMPTOMS, MANAGEMENT OF COMPLICATIONS, AND PRESCRIBED TREATMENT REGIMEN BY END OF EPISODE.GoalProvider Goal - PATIENT/CAREGIVER WILL VERBALIZE/DEMONSTRATE KNOWLEDGE OF DIABETIC MANAGEMENT. CHANGES IN DIABETIC STATUS WILL BE IDENTIFIED AND REPORTED TO PHYSICIAN FOR PROMPT INTERVENTION THROUGHOUT THE CERTIFICATION PERIOD.GoalProvider Goal - PATIENT/CAREGIVER WILL VERBALIZE/DEMONSTRATE UNDERSTANDING OF SAFE PROVISION OF ADLS BY THE END OF THE CERTIFICATION PERIOD. GoalProvider Goal - PATIENT WILL VERBALIZE/DEMONSTRATE TOLERANCE TO CENTRAL LINE ACCESS PROCEDURE, IV MEDICATION ADMINISTRATION, AND DRESSING CHANGES ORDERED THROUGH CERTIFICATION PERIOD.GoalProvider Goal - SKILLED NURSE TO PERFORM LAB PROCEDURE AND REPORT RESULTS TO PHYSICIAN.GoalProvider Goal - A PHYSICAL THERAPY EVALUATION TO BE COMPLETED WITH RECOMMENDATIONS AND/OR WRITTEN PLAN OF TREATMENT ESTABLISHED FOR PHYSICIAN S SIGNATURE.GoalProvider Goal - OCCUPATIONAL THERAPY EVALUATION TO BE COMPLETED WITH RECOMMENDATIONS AND WRITTEN PLAN OF TREATMENT ESTABLISHED FOR THE PHYSICIAN S SIGNATURE. Encounters Start Date/Time End Date/Time Encounter Type Admission Type Attending [facility] Care Facility Care Department Encounter ID Discharge Date Discharge Status Discharge Condition Discharge Reason Percent Goals Met 2025-07-04 00:00:00 2025-09-01 00:00:00 Outpatient NEW ADM ISSION MAGNO, GLADYS [id number]
== END 2025-07-10 12:26 | disposition home or self-care (01) ==
LOC: LAB 12:25
PROVIDERS: PCP Internal Medicine
DX: A41.9 Sepsis, unspecified organism (principal)
CPT/HCPCS: 36415; 82565; 85025; 86140